=== PATIENT | male | born 1940 | race Caucasian/White ===

== ENCOUNTER 2023-01-07 13:53 | Outpatient (RCR) | payer MEDICARE, SELFPAY ==
[2023-01-07] VITALS (8 sets, daily range): BP systolic 93–122; BP diastolic 50–76; PULSE 50–56; RESP 18–20; TEMP 36–36.2; O2SAT 94–100
[2023-01-07 14:35] LABS: Basophils Percent Auto 0.2 % (0.2-2.0); Eosinophils Percent Auto 0.2 % (0.9-7.0); Immature Granulocytes Abs Auto 0.25 10^3/uL (0.00-0.03); Lymphocytes Absolute Auto 1.6 10^3/uL (1.2-3.8); Lymphocytes Percent Auto 31.6 % (20.5-60.0); Mean Corpuscular HGB Conc 32.7 g/dL (29.9-35.2); Mean Corpuscular Hemoglobin 37.7 pg (25.9-34.0); Mean Corpuscular Volume 115.3 fL (80.0-94.0); Monocytes Absolute Auto 0.8 10^3/uL (0.3-0.8); Monocytes Percent Auto 16.3 % (1.7-12.0); Neutrophils Absolute Auto 2.3 10^3/uL (1.4-6.5); Neutrophils Percent Auto 46.7 % (43.0-75.0); Platelet Count 92 10^3/uL (150-450); Red Blood Count 1.83 10^6/uL (4.70-6.10)
[2023-01-07 14:38] LABS: Hemoglobin 6.9 g/dL (14.0-18.0)
[2023-01-07] MEDS: 0.9 % SODIUM CHLORIDE 500 ML 100 ML IV (14:38)
[2023-01-07 14:39] LABS: Hematocrit 21.1 % (42.0-54.0)
[2023-01-07] MEDS: ACETAMINOPHEN 325 MG TABLET 650 MG PO (15:06)
[2023-01-07] MEDS: DIPHENHYDRAMINE HCL 25 MG CAPSULE PO (15:07)
--- NOTE | 2023-01-07 15:18 | PC.NURSE ---
PATIENT ARRIVED TO INFUSION SERVICES AT 1317. PATIENT IS MADE COMFORTABLE IN THE RECLINER AND PROVIDED A PILLOW, WARM BLANKET AND COLD WATER. HAT BLOCKING OPERATOR IS HERE TO DRAW BLOOD FOR A TYPE AND CROSS FOR 1 UNIT OF BLOOD. PERIPHERAL IV INITIATED IN THE LEFT HAND AFTER 1 ATTEMPT USING A 22G IV CATHETER. PATIENT TOLERATED PROCEDURE WELL. NORMAL SALINE INITIATED AT KVO. AWAITING LAB RESULT. LAB RESULT RECEIVED AND BLOOD IS READY TO ISSUE. BLOOD TRANSFUSION INITIATED WITHOUT DIFFICULTY, SEE TAR FOR DOCUMENTATION. 1520 FOOD ORDERED FROM [facility].
--- NOTE | 2023-01-07 16:29 | PC.NURSE ---
PATIENT IS EATING HIS HAMBURGER AND SALVADOREAN FRIES. PATIENT HAS NO COMPLAINTS. BLOOD TRANSFUSION IS RUNNING AT 180ML/HR. BLOOD TRANSFUSION COMPLETED AT 1720 WITHOUT COMPLICATIONS. IV CATHETER IS FLUSHED WITH NORMAL SALINE AND REMOVED. SITE IS COVERED WITH A COTTON BALL AND BAND AID. PATIENT IS UP TO THE BATHROOM FOR A VOID AND THEN DISCHARGED PER WHEELCHAIR TO PRIVATE VEHICLE AND THE CARE OF HIS . PATIENT HAD NO COMPLAINTS.
[2023-01-07] MEDS: FUROSEMIDE 20 MG/2 ML VIAL IV (17:12)
== END 2023-01-24 23:59 | disposition home or self-care (01) ==
LOC: INF 13:53
PROVIDERS: PCP Family Medicine; Visit Provider Family Medicine
DX: D46.9 Myelodysplastic syndrome, unspecified (principal)
CPT/HCPCS: 36415; 36430; 85025; 86850; 86900; 86901; 86920; G0463; P9016

== ENCOUNTER 2023-02-03 11:12 | Observation (INO) | payer MEDICARE, SELFPAY ==
[2023-02-03] VITALS (32 sets, daily range): BP systolic 94–126; BP diastolic 51–71; PULSE 50–72; RESP 16–30; TEMP 36.3–37.8; O2SAT 90–98; BMI 36.6; BMI 36.9
--- NOTE | 2023-02-03 11:31 | ECG_ITS ---
[facility] Test Date: 2023-02-03 Pat Name: SANDIP BROUSSARD Department: Room: - Gender: Male Medical Clerical Assistant: : 1940 Requested By: JACQUELIN HERNANDES Order Number: [id number] Reading MD: BROOKE MANDEL Measurements Intervals [place] Rate: 73 P: -[id number] NE: -[id number] QRS: 189 QRSD: 118 T: 49 QT: 418 QTc: 445 Interpretive Statements 1400 Undetermined rhythm (Possible supraventricular rhythm) 1574 with frequent ventricular premature complexes 3334 Anterolateral myocardial infarction, age undetermined 3433 Septal myocardial infarction, probably old 8100 Low QRS voltage 9150 abnormal ECG No previous ECG available for comparison Electronically Signed On 02-04-2023 7:06:49 EDT by BROOKE MANDEL
--- NOTE | 2023-02-03 11:31 | ED.GENADUL1 ---
HPI - General Adult General Chief complaint: Weakness Stated complaint: LOW ON BLOOD Time Seen by Provider: 02/03/23 11:22 Source: patient Mode of arrival: Wheelchair History of Present Illness HPI narrative: 82-year-old male presents for possible anemia. He has a history of myelodysplastic syndrome and periodically needs blood transfusion. The last time was on January 07. He's been feeling a little bit weak. His states that it's easier to bring him to the emergency department to get the blood than to go to the protocol his doctor wants him to do. No fever cough chest pain or shortness of breath. Related Data Home Medications Medication Instructions Recorded Confirmed aspirin 81 mg tablet,delayed 81 mg PO QPM 02/03/23 02/03/23 release bumetanide 1 mg tablet 1 mg PO BID 02/03/23 02/03/23 dapagliflozin 10 mg tablet 10 mg PO DAILY 02/03/23 02/03/23 (Farxiga) dexamethasone 2 mg tablet 2 mg PO DAILY 02/03/23 02/03/23 glipizide 5 mg tablet 5 mg PO QPM 02/03/23 02/03/23 metoprolol tartrate 25 mg tablet 12.5 mg PO DAILY 02/03/23 02/03/23 omeprazole 40 mg capsule,delayed 40 mg PO DAILY 02/03/23 02/03/23 release potassium chloride 10 mEq 10 meq PO DAILY 02/03/23 02/03/23 tablet,extended release (K-Tab) sennosides 8.6 mg-docusate sodium 1 tab-cap PO QPM 02/03/23 02/03/23 50 mg tablet (Docuzen) spironolactone 25 mg tablet 25 mg PO DAILY 02/03/23 02/03/23 (Aldactone) terazosin 5 mg capsule 5 mg PO QPM 02/03/23 02/03/23 Allergies Allergy/AdvReac Type Severity Reaction Status Date / Time bee venom protein (honey bee) Allergy Severe Verified 02/03/23 11:28 coreg Allergy Severe Uncoded 02/03/23 11:34 Review of Systems ROS Narrative A ten point review of systems is negative except as noted above. [facility] Medical History (Updated 02/03/23 @ 13:54 by Pancho Lama MD) Exam Narrative Exam Narrative: Nurses note and vital signs reviewed and patient is not hypoxic. General: The patient appears well and in no apparent distress. Patient is resting comfortably on cart. Skin: Warm, dry, pallor noted. There is no rash noted. Head: Normocephalic, atraumatic Eye: Normal conjunctiva, no drainage Ears, Nose, Mouth, and Throat: oral mucosa is moist. Nares patent. Cardiovascular: Regular Rate and Rhythm Respiratory: Patient is in no distress, no accessory muscle use, lungs are clear to auscultation, no wheezing, rales or rhonchi Back: non-tender GI: obese and nontender Musculoskeletal: The patient has no evidence of calf tenderness, no pitting edema, symmetrical pulses noted bilaterally Neurological: awake and alert Psychiatric: Cooperative Constitutional Vital Signs, click to edit/add: Last Vital Signs Temp 97.6 F 02/03/23 11:20 Pulse 66 02/03/23 13:45 Resp 22 02/03/23 13:45 BP 112/53 L 02/03/23 13:45 Pulse Ox 92 L 02/03/23 13:45 O2 Del Method Nasal Cannula 02/03/23 11:56 O2 Flow Rate 4 02/03/23 11:56 Course Vital Signs Vital signs: Vital Signs Temperature 97.6 F 02/03/23 11:20 Pulse Rate 58 L 02/03/23 11:20 Respiratory Rate 24 02/03/23 11:20 Blood Pressure 103/65 02/03/23 11:20 Pulse Oximetry 92 L 02/03/23 11:20 Oxygen Delivery Method Nasal Cannula 02/03/23 11:20 Oxygen Delivery Flow Rate 3 02/03/23 11:20 Temperature 97.6 F 02/03/23 11:20 Pulse Rate 66 02/03/23 13:45 Respiratory Rate 22 02/03/23 13:45 Blood Pressure 112/53 L 02/03/23 13:45 Pulse Oximetry 92 L 02/03/23 13:45 Oxygen Delivery Method Nasal Cannula 02/03/23 11:56 Oxygen Delivery Flow Rate 4 02/03/23 11:56 Medical Decision Making MDM Narrative Medical decision making narrative: he presents with anemia and hemoglobin of 4.6. He is being admitted for blood transfusion. He's anemic secondary to myelodysplastic syndrome. Differential Diagnosis Differential Diagnosis: anemia, ARMANDO Lab Data Lab results reviewed: Yes I reviewed the patient's lab results Labs: Lab Results 02/03/23 Range/Units 11:35 WBC 4.6 (4.0-11.0) 10^3/uL RBC 1.18 L (4.70-6.10) 10^6/uL Hgb 4.6 L* (14.0-18.0) g/dL Hct 14.8 L* (42.0-54.0) % MCV 125.4 H (80.0-94.0) fL MCH 39.0 H (25.9-34.0) pg MCHC 31.1 (29.9-35.2) g/dL Plt Count 82 L (150-450) 10^3/uL Seg Neuts % (Manual) 51.0 Lymphocytes % (Manual) 17.0 L (20.5-60.0) % Monocytes % (Manual) 17.0 H (1.7-12.0) % Eosinophils % (Manual) 0.0 L (0.9-7.0) % Basophils % (Manual) 0.0 L (0.2-2.0) % Metamyelocytes % 5.0 Neutrophils # (Manual) 2.34 (1.4-6.5) 10^3/uL Band Neutrophils # 10.0 H (0.0-0.3) 10^3/uL Lymphocytes # (Manual) 0.78 L (1.20-3.80) 10^3/uL Monocytes # (Manual) 0.78 (0.30-0.80) 10^3/uL Eosinophils # (Manual) 0.00 (0.00-0.70) 10^3/uL Basophils # (Manual) 0.00 (0.00-0.10) 10^3/uL Metamyelocytes # 0.23 Hypochromasia 2+ Anisocytosis 2+ Macrocytosis 2+ Sodium 142 (136-145) mmol/L Potassium 4.6 (3.5-5.1) mmol/L Chloride 103 (98-107) mmol/L Carbon Dioxide 28.4 (21.0-32.0) mmol/L Anion Gap 15.2 BUN 45.0 H (7.0-18.0) mg/dL Creatinine 1.90 H (0.70-1.30) mg/dL Est GFR ( Amer) 41 L (>=60) Est GFR (Non-Af Amer) 34 L (>=60) BUN/Creatinine Ratio 23.7 Glucose 168 H (74-106) mg/dL Calcium 8.6 (8.5-10.1) mg/dL ECG Data Attestation: I personally reviewed and interpreted this ECG as follows: (EKG on my interpretation shows a heart rate of 73 and uncertain rhythm) Discharge Plan Discharge Chief Complaint: Weakness Clinical Impression: Anemia Patient Disposition: Admitted as Observation Time of Disposition Decision: 13:54 Condition: Good Prescriptions / Home Meds: No Action bumetanide 1 mg tablet 1 mg PO BID dexamethasone 2 mg tablet 2 mg PO DAILY Farxiga 10 mg tablet 10 mg PO DAILY metoprolol tartrate 25 mg tablet 12.5 mg PO DAILY omeprazole 40 mg capsule,delayed release(DR/EC) 40 mg PO DAILY potassium chloride [K-Tab] 10 mEq tablet extended release 10 meq PO DAILY spironolactone [Aldactone] 25 mg tablet 25 mg PO DAILY glipizide 5 mg tablet 5 mg PO QPM terazosin 5 mg capsule 5 mg PO QPM aspirin 81 mg tablet,delayed release (DR/EC) 81 mg PO QPM sennosides-docusate sodium [Docuzen] 8.6-50 mg tablet 1 tab-cap PO QPM Referrals: JACQUELIN HERNANDES [Primary Care Provider] - 1 week
[2023-02-03 12:08] LABS: Anion Gap 15.2; BUN Creatinine Ratio 23.7; Calcium 8.6 mg/dL (8.5-10.1); Carbon Dioxide 28.4 mmol/L (21.0-32.0); Chloride 103 mmol/L (98-107); Estimated GFR (African America 41 (>=60); Estimated GFR (Non-African Ame 34 (>=60); Glucose 168 mg/dL (74-106); Potassium 4.6 mmol/L (3.5-5.1); Sodium 142 mmol/L (136-145)
[2023-02-03 12:25] LABS: Mean Corpuscular HGB Conc 31.1 g/dL (29.9-35.2); Mean Corpuscular Volume 125.4 fL (80.0-94.0); Platelet Count 82 10^3/uL (150-450); Red Blood Count 1.18 10^6/uL (4.70-6.10); White Blood Count 4.6 10^3/uL (4.0-11.0)
[2023-02-03 12:41] LABS: Hematocrit 14.8 % (42.0-54.0); Hemoglobin 4.6 g/dL (14.0-18.0)
[2023-02-03 13:07] LABS: Lymphocytes Absolute Manual 0.78 10^3/uL (1.20-3.80); Metamyelocytes Absolute Manual 0.23; Monocytes Absolute Manual 0.78 10^3/uL (0.30-0.80); Segmented Neut Absolute Manual 2.34 10^3/uL (1.4-6.5)
[2023-02-03 13:08] LABS: Anisocytosis 2+; Hypochromasia 2+; Macrocytosis 2+
[2023-02-03] MEDS: 0.9 % SODIUM CHLORIDE 250 ML 25 ML IV (15:39)
[2023-02-03] MEDS: PANTOPRAZOLE SODIUM 40 MG VIAL IV (15:40)
--- NOTE | 2023-02-03 15:47 | SWNOTE1 ---
FLOYD met with pt and pt's in room. Pt's was very upset about the hospice care her was getting at home. He has [facility]. Pt's voiced several situations that made her upset. She was upset about hospice taking him off meds that his sand carrier prescribes, she was also upset about a paper she recevied in mail about meds. Pt's had several concerns. SW suggested that pt and speak to other hospices tomorrow so she can ask them questions. Pt's is agreeable to talk with [facility] and [facility]. SW reached out to doctor.
[2023-02-03 16:23] LABS: Glucometer 241 mg/dL (74-106)
[2023-02-03] MEDS: FUROSEMIDE 20 MG/2 ML VIAL IVP (20:18)
[2023-02-03] MEDS: GLIPIZIDE 5 MG TABLET PO (20:36)
[2023-02-03] MEDS: TERAZOSIN HCL 5 MG CAPSULE PO (20:37)
[2023-02-03] MEDS: BUMETANIDE 1 MG TABLET PO (20:37)
[2023-02-03 21:54] LABS: Glucometer 275 mg/dL (74-106)
[2023-02-03] MEDS: INSULIN ASPART 300 UNIT/3 ML PEN SUBQ (22:06)
[2023-02-04] VITALS (21 sets, daily range): BP systolic 105–134; BP diastolic 57–76; PULSE 50–83; RESP 16–20; TEMP 36.4–37.4; O2SAT 90–95
[2023-02-04 05:46] LABS: INR 1.09; Partial Thromboplastin Time 20.3 sec (22.3-36.2); Prothrombin Time 11.5 sec (9.0-11.6)
[2023-02-04 05:55] LABS: Alanine Aminotransferase 126 U/L (16-63); Albumin Globulin Ratio 0.9; Albumin Level 3.4 g/dL (3.4-5.0); Alkaline Phosphatase 76 U/L (46-116); Anion Gap 14.4; Aspartate Amino Transferase 48 U/L (15-37); BUN Creatinine Ratio 25.1; Bilirubin Total 1.2 mg/dL (0.2-1.0); Calcium 9.1 mg/dL (8.5-10.1); Carbon Dioxide 29.3 mmol/L (21.0-32.0); Chloride 103 mmol/L (98-107); Estimated GFR (African America 41 (>=60); Estimated GFR (Non-African Ame 34 (>=60); Globulin 3.6 g/dL; Glucose 137 mg/dL (74-106); Potassium 4.7 mmol/L (3.5-5.1); Sodium 142 mmol/L (136-145)
[2023-02-04 07:13] LABS: Hematocrit 24.1 % (42.0-54.0); Hemoglobin 7.7 g/dL (14.0-18.0); Mean Corpuscular Hemoglobin 33.6 pg (25.9-34.0); Mean Corpuscular Volume 105.2 fL (80.0-94.0); Platelet Count 85 10^3/uL (150-450); Red Blood Count 2.29 10^6/uL (4.70-6.10)
[2023-02-04 08:19] LABS: Band Neutrophils Absolute 0.2 10^3/uL (0.0-0.3); Metamyelocytes Absolute Manual 0.05; Segmented Neut Absolute Manual 3.25 10^3/uL (1.4-6.5)
[2023-02-04 08:21] LABS: Giant Platelets 1+
[2023-02-04 08:25] LABS: Anisocytosis 1+; Hypochromasia 1+; Macrocytosis 1+
[2023-02-04] MEDS: CANAGLIFLOZIN 100 MG TABLET 300 MG PO (10:28)
[2023-02-04] MEDS: OMEPRAZOLE 40 MG CAPSULE.DR PO (10:29)
[2023-02-04] MEDS: METOPROLOL TARTRATE 25 MG TABLET 12.5 MG PO (10:29)
[2023-02-04] MEDS: BUMETANIDE 1 MG TABLET PO (10:29)
[2023-02-04] MEDS: DEXAMETHASONE 4 MG TABLET 2 MG PO (10:30)
[2023-02-04] MEDS: SPIRONOLACTONE 25 MG TABLET PO (10:30)
--- NOTE | 2023-02-04 10:31 | CM.NOTE ---
Rounds made with Dr. Liu, pt will receive one more unit PRBC's today and then D/C to home. Pt does verbalize he is not happy with [facility]. SW did discuss option with pt and reached out to [facility].
[2023-02-04] MEDS: POTASSIUM CHLORIDE 10 MEQ ER TABLET PO (10:32)
--- NOTE | 2023-02-04 10:38 | SWNOTE1 ---
[facility] will be here around two. SW spoke to [facility] and they set up time with pt's for 1:30-2. SW requested [facility] change the time, waiting for call back from nurse at [facility]. SW also reached out to [facility] via email requeting time change.
--- NOTE | 2023-02-04 10:57 | PM.HP ---
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 Hemoglobin less than 5 in the emergency room. Admitted for transfusion. He received 4 units overnight. Hemoglobin still less than 8. Review of Systems ROS Status of ROS 10 or more systems reviewed and unremarkable except as noted in history and below [facility] Medical History (Updated 02/03/23 @ 15:57 by Khadijah Mohan) Surgical History (Updated 02/03/23 @ 15:57 by Khadijah Mohan) Family History (Updated 02/03/23 @ 15:58 by Khadijah Mohan) Father Family history of stroke Mother Family history of stroke Family history of hypertension Family history of CHF (congestive heart failure) Brother Family history of diabetes mellitus Sister Family history of cancer Social History (Updated 02/03/23 @ 16:00 by Khadijah Mohan) Within the past year, how often did you have a drink containing alcohol: never Score interpretation: A score less than 4 is consistent with normal alcohol consumption. Smoking status: Former smoker Non-prescribed substance use: denies use Previous occupational history: Retired - [employer] Highest level of school completed/degree received: high school graduate Are you now , , , , never or living with a partner: In a typical week, how many times do you talk on the telephone with family, friends, or neighbors: 3 or more times per week How often do you get together with friends or relatives: 3 or more times per week How often do you attend mandaeism or yarsanism services: 1-3 times per year Little interest or pleasure in doing things: not at all Feeling down, depressed, or hopeless: not at all Feel stressed/tense/nervous/anxious/difficulty sleeping: not at all Life stressors: unknown source of stress Do you think of yourself as: straight/heterosexual Gender Identity: male Meds Home Medications and Allergies Home Medications Medication Instructions Recorded Confirmed Type aspirin 81 mg tablet,delayed 81 mg PO QPM 02/03/23 02/03/23 History release bumetanide 1 mg tablet 1 mg PO BID 02/03/23 02/03/23 History dapagliflozin 10 mg tablet 10 mg PO DAILY 02/03/23 02/03/23 History () dexamethasone 2 mg tablet 2 mg PO DAILY 02/03/23 02/03/23 History glipizide 5 mg tablet 5 mg PO QPM 02/03/23 02/03/23 History metoprolol tartrate 25 mg tablet 12.5 mg PO DAILY 02/03/23 02/03/23 History omeprazole 40 mg capsule,delayed 40 mg PO DAILY 02/03/23 02/03/23 History release potassium chloride 10 mEq 10 meq PO DAILY 02/03/23 02/03/23 History tablet,extended release (K-Tab) sennosides 8.6 mg-docusate sodium 1 tab-cap PO QPM 02/03/23 02/03/23 History 50 mg tablet (Docuzen) spironolactone 25 mg tablet 25 mg PO DAILY 02/03/23 02/03/23 History (Aldactone) terazosin 5 mg capsule 5 mg PO QPM 02/03/23 02/03/23 History Allergies Allergy/AdvReac Type Severity Reaction Status Date / Time bee venom protein (honey bee) Allergy Severe Verified 02/03/23 11:28 coreg Allergy Severe Uncoded 02/03/23 11:34 Exam Constitutional Vital Signs, click to edit/add: Last Vital Signs Temp 98.2 F 02/04/23 05:32 Pulse 59 L 02/04/23 06:17 Resp 18 02/04/23 08:00 BP 117/70 02/04/23 05:32 Pulse Ox 90 L 02/04/23 05:32 O2 Del Method Nasal Cannula 02/04/23 05:32 O2 Flow Rate 3 02/04/23 05:32 HENMT Common normals: normocephalic Chest Common normals: inspection of chest normal Respiratory Common normals: normal respiratory effort and clear to auscultation bilaterally Cardio Common normals: regular rate and regular rhythm GI Common normals: Normal to inspection, nondistended, normoactive bowel sounds present Neuro Common normals: oriented x3 and CN's II-XII intact bilaterally Results Labs Labs: Short CBC 02/03/23 02/04/23 Range/Units 11:35 04:55 WBC 4.6 5.0 (4.0-11.0) 10^3/uL Hgb 4.6 L* 7.7 L (14.0-18.0) g/dL Hct 14.8 L* 24.1 L (42.0-54.0) % Plt Count 82 L 85 L (150-450) 10^3/uL BMP 02/03/23 02/04/23 11:35 04:55 Sodium 142 142 Potassium 4.6 4.7 Chloride 103 103 Carbon Dioxide 28.4 29.3 BUN 45.0 H 48.0 H Creatinine 1.90 H 1.91 H Glucose 168 H 137 H Calcium 8.6 9.1 Liver Function 02/04/23 Range/Units 04:55 Total Bilirubin 1.2 H (0.2-1.0) mg/dL AST 48 H (15-37) U/L ALT 126 H (16-63) U/L Alkaline Phosphatase 76 (46-116) U/L Albumin 3.4 (3.4-5.0) g/dL Assessment and Plan Assessment and Plan (1) Transfusion of blood during current hospitalisation: (2) Diabetes: (3) Anemia: Plan 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 We will give 1 additional unit. Then discharged home in improving condition. Medications see list. Follow-up with PCP and hematology oncology within the next week.
[2023-02-04 11:21] LABS: Glucometer 166 mg/dL (74-106)
--- NOTE | 2023-02-04 11:44 | SWNOTE1 ---
FLOYD recevied call from [facility] and they will be here shortly.
--- NOTE | 2023-02-04 13:04 | SWNOTE1 ---
SW spoke to nurse from [facility] via phone and pt does qualify for hospice or palliative care, but wants to talk with [facility] at 2 and then decide.
[2023-02-04] MEDS: 0.9 % SODIUM CHLORIDE 250 ML IV.SOLN IV (14:33)
--- NOTE | 2023-02-04 15:45 | SWNOTE1 ---
FLOYD spoke with [facility] and they are still able to do blood transfusions on hospice. Pt is going to sign on with [facility], Bobbi from [facility] is going to be calling as she had to leave for appointment. Pt will be discharged home today. Bobbi (from [facility]) will take care of calling [facility]
--- NOTE | 2023-02-04 16:21 | SWNOTE1 ---
SW reviewed STARK form with pt, pt's was not in room. Pt did voice understanding, no questions. Pt signed form, original given to pt and copy placed in chart. SW did let pt know if his has any questions to call and ask for SW. [facility] will be contacting as well.
[2023-02-04 16:52] LABS: Glucometer 287 mg/dL (74-106)
[2023-02-04] MEDS: INSULIN ASPART 300 UNIT/3 ML PEN SUBQ (17:30)
[2023-02-04 18:05] LABS: Hematocrit 26.7 % (42.0-54.0); Mean Corpuscular HGB Conc 33.7 g/dL (29.9-35.2); Mean Corpuscular Hemoglobin 34.5 pg (25.9-34.0); Mean Corpuscular Volume 102.3 fL (80.0-94.0); Platelet Count 93 10^3/uL (150-450); Red Blood Count 2.61 10^6/uL (4.70-6.10); Red Cell Distribution Width 28.9 % (11.0-15.0); White Blood Count 5.3 10^3/uL (4.0-11.0)
[2023-02-04 18:40] LABS: Band Neutrophils Absolute 0.4 10^3/uL (0.0-0.3); Lymphocytes Absolute Manual 0.95 10^3/uL (1.20-3.80); Metamyelocytes Absolute Manual 0.15; Monocytes Absolute Manual 0.31 10^3/uL (0.30-0.80); Segmented Neut Absolute Manual 3.44 10^3/uL (1.4-6.5)
[2023-02-04 18:41] LABS: Anisocytosis 1+; Giant Platelets 1+; Hypochromasia 1+; Macrocytosis 1+
== END 2023-02-04 18:26 | disposition hospice, home (50) ==
LOC: ER 14:26 → MS 14:31
PROVIDERS: Admitting Provider Family Medicine; Emergency Provider Emergency Medicine; PCP Family Medicine; Visit Provider Family Medicine
DX: D46.9 Myelodysplastic syndrome, unspecified (principal); D63.8 Anemia in other chronic diseases classified elsewhere; E11.9 Type 2 diabetes mellitus without complications; Z79.82 Long term (current) use of aspirin; Z79.899 Other long term (current) drug therapy; Z87.891 Personal history of nicotine dependence
CPT/HCPCS: 36415; 36430; 80048; 80053; 82948; 85007; 85025; 85027; 85610; 85730; 86850; 86900; 86901; 86920; 93005; 94667; 94668; 94761; 96374; 96375; 99285; G0328; G0378; P9016

== ENCOUNTER 2023-03-12 10:00 | Outpatient (RCR) | payer MEDICARE, SELFPAY ==
[2023-03-12 10:19] VITALS: BP 106/54; PULSE 58; RESP 16; TEMP 36.5; O2SAT 99
--- NOTE | 2023-03-12 10:26 | PC.NURSE ---
10:10 Arrived per wheel chair, stood on own and transferred to reclinning chair, with patient. oxygen with patient. Alert oriented, lungs clear to auscultation, vss obtained. Lungs clear to auscultation, heart tones strong and regular. Lab in, labs drawn with IV start, #20 to left forarm, tolerated procedure without difficult.
[2023-03-12] MEDS: 0.9 % SODIUM CHLORIDE 250 ML 30 ML IV (10:29)
[2023-03-12 11:33] VITALS: BP 112/50; PULSE 54; RESP 20; TEMP 36.4; O2SAT 100
[2023-03-12 11:46] VITALS: BP 103/58; RESP 16; TEMP 36.6; O2SAT 98
[2023-03-12 11:50] VITALS: BP 102/66; PULSE 66; RESP 14; TEMP 36.6; O2SAT 98
--- NOTE | 2023-03-12 11:52 | PC.NURSE ---
tolerating PRBC without diffiiculty. patient request premed wth tylenol and benadryl, no orders for premedication. called [facility] oncology, will send orders.
--- NOTE | 2023-03-12 12:26 | PC.NURSE ---
Tolerating prbc's withoutout difficulty.
[2023-03-12] MEDS: FUROSEMIDE 20 MG/2 ML VIAL IVP (15:22)
== END 2023-03-12 15:00 | disposition home or self-care (01) ==
LOC: INF 10:00
PROVIDERS: PCP Family Medicine
DX: D46.9 Myelodysplastic syndrome, unspecified (principal); D61.818 Other pancytopenia
CPT/HCPCS: 36415; 36430; 86850; 86900; 86901; 86920; P9016

== ENCOUNTER 2023-03-19 10:43 | Outpatient (OUT) | payer MEDICARE, SELFPAY ==
[2023-03-19 11:10] LABS: Immature Granulocytes Abs Auto 0.12 10^3/uL (0.00-0.03); Immature Granulocytes Pct Auto 4.1 % (0.0-0.5); Lymphocytes Absolute Auto 0.7 10^3/uL (1.2-3.8); Mean Corpuscular HGB Conc 31.2 g/dL (29.9-35.2); Mean Corpuscular Volume 109.1 fL (80.0-94.0); Mean Platelet Volume 13.8 fL (9.5-13.5); Monocytes Absolute Auto 0.5 10^3/uL (0.3-0.8); Monocytes Percent Auto 16.6 % (1.7-12.0); Neutrophils Absolute Auto 1.7 10^3/uL (1.4-6.5); Neutrophils Percent Auto 56.3 % (43.0-75.0); Platelet Count 83 10^3/uL (150-450); Red Blood Count 1.97 10^6/uL (4.70-6.10)
[2023-03-19 11:11] LABS: Hemoglobin 6.7 g/dL (14.0-18.0)
[2023-03-19 11:12] LABS: Hematocrit 21.5 % (42.0-54.0)
[2023-03-19 14:56] LABS: Alanine Aminotransferase 135 U/L (16-63); Albumin Level 3.3 g/dL (3.4-5.0); Alkaline Phosphatase 79 U/L (46-116); Anion Gap 14.8; Aspartate Amino Transferase 36 U/L (15-37); BUN Creatinine Ratio 21.3; Bilirubin Total 0.5 mg/dL (0.2-1.0); Calcium 8.8 mg/dL (8.5-10.1); Carbon Dioxide 27.7 mmol/L (21.0-32.0); Chloride 102 mmol/L (98-107); Estimated GFR (African America 40 (>=60); Estimated GFR (Non-African Ame 33 (>=60); Globulin 3.9 g/dL; Glucose 203 mg/dL (74-106); Lactate Dehydrogenase 249 U/L (85-227); Potassium 4.5 mmol/L (3.5-5.1); Sodium 140 mmol/L (136-145); Total Protein 7.2 g/dL (6.4-8.2)
[2023-03-19 14:57] LABS: Albumin Globulin Ratio 0.8
== END 2023-03-19 10:44 | disposition home or self-care (01) ==
LOC: LAB 10:47
PROVIDERS: PCP Family Medicine
DX: D61.818 Other pancytopenia (principal); D63.8 Anemia in other chronic diseases classified elsewhere; D46.Z Other myelodysplastic syndromes
CPT/HCPCS: 36415; 80053; 83615; 85025; 86850; 86900; 86901; 86920

== ENCOUNTER 2023-03-25 14:01 | Outpatient (OUT) | payer MEDICARE, SELFPAY ==
[2023-03-25 15:55] LABS: Hemoglobin 7.5 g/dL (14.0-18.0); Mean Corpuscular HGB Conc 32.3 g/dL (29.9-35.2); Mean Corpuscular Hemoglobin 34.1 pg (25.9-34.0); Mean Corpuscular Volume 105.5 fL (80.0-94.0); Mean Platelet Volume 13.5 fL (9.5-13.5); Platelet Count 101 10^3/uL (150-450); Red Cell Distribution Width 26.4 % (11.0-15.0); White Blood Count 3.8 10^3/uL (4.0-11.0)
[2023-03-25 15:58] LABS: Hematocrit 23.2 % (42.0-54.0)
[2023-03-25 16:14] LABS: Atypical Lymphocytes Abs Man 0.1; Lymphocytes Absolute Manual 0.45 10^3/uL (1.20-3.80); Metamyelocytes Absolute Manual 0.03; Monocytes Absolute Manual 0.45 10^3/uL (0.30-0.80); Segmented Neut Absolute Manual 2.62 10^3/uL (1.4-6.5)
[2023-03-25 16:15] LABS: Band Neutrophils Absolute 0.1 10^3/uL (0.0-0.3)
[2023-03-25 16:17] LABS: Anisocytosis 2+; Hypochromasia 2+
[2023-03-25 16:18] LABS: Macrocytosis 2+
== END 2023-03-25 14:02 | disposition home or self-care (01) ==
LOC: HEMC 14:01
PROVIDERS: PCP Family Medicine; Visit Provider Internal Medicine Hematology & Oncology
DX: D46.9 Myelodysplastic syndrome, unspecified (principal)
CPT/HCPCS: 36415; 85027; 86850; 86920; G0463

== ENCOUNTER 2023-03-26 13:00 | Outpatient (RCR) | payer MEDICARE, SELFPAY ==
[2023-03-21] MEDS: 0.9 % SODIUM CHLORIDE 250 ML 40 ML IV (08:41)
[2023-03-21] MEDS: DIPHENHYDRAMINE HCL 25 MG CAPSULE PO (08:43)
[2023-03-21] MEDS: ACETAMINOPHEN 325 MG TABLET 650 MG PO (08:43)
[2023-03-21 08:59] VITALS: PULSE 50; RESP 18; TEMP 36.3
--- NOTE | 2023-03-21 09:08 | PC.NURSE ---
0830 Arrived per w/c assisted to recliner seat 3. alert oriented. oxygen at 3lpm, connected to wall o2. Respirations with ease, lungs clear posteriorly to ausculation. Heart tones bradycardic at 50. No peripheral edema noted. Iv #22 initiated left wrist area on 1st attempt, tolerated well. nss initiated at kvo. Premedicated as ordered with benadryl and tylenol.
--- NOTE | 2023-03-21 09:11 | PC.NURSE ---
903 unit of prbc's initated per protocol at 80 ml hr. patient educated on s/s of rxn and to call nurse for any shortness of breath, chest pain, itching, back pain chills etc. verbalizes understanding.
[2023-03-21 09:20] VITALS: PULSE 56; RESP 18; TEMP 36.4; O2SAT 99
--- NOTE | 2023-03-21 09:28 | PC.NURSE ---
Tolerating prbc's without difficulty, rate increased to 120 ml/hr resting recliner when undisturbed.
[2023-03-21 10:20] VITALS: BP 112/56; PULSE 61; RESP 18; TEMP 35.9; O2SAT 98
--- NOTE | 2023-03-21 10:26 | PC.NURSE ---
Tolerating PRBC's without difficulty. eating breakfast at this time.
[2023-03-21 11:08] VITALS: BP 112/56; PULSE 61; RESP 18; TEMP 36.2; O2SAT 98
[2023-03-21 12:05] VITALS: BP 118/68; PULSE 53; RESP 18; TEMP 36.5
--- NOTE | 2023-03-21 12:14 | PC.NURSE ---
PRBC's infused. NS flush initiated, VS obtained.
[2023-03-21 12:18] VITALS: BP 100/54; PULSE 56; RESP 20; TEMP 37; O2SAT 99
[2023-03-21] MEDS: FUROSEMIDE 20 MG/2 ML VIAL IV (12:30)
--- NOTE | 2023-03-21 12:55 | PC.NURSE ---
1235 ns flush completed. iv fluids beth enriquez,
--- NOTE | 2023-03-26 13:43 | PC.NURSE ---
1300: Pt. to [facility] via w/c accompanied by . Portable O2 intact. Assisted to recliner. VSS. O2 to wall unit at 3L nasal cannula. #22 gauge IV initiated to right hand on first attempt. Flushes easily with good blood return, pt. tolerated without c/o. Pt. with skin tear to left hand. States tore skin on suspender clip on way over to hospital. Tegaderm and coban dressing applied.
[2023-03-26] MEDS: 0.9 % SODIUM CHLORIDE 250 ML 30 ML IV (14:18)
--- NOTE | 2023-03-26 14:18 | PC.NURSE ---
1418: 1 unit PRBC initiated at this time. Pt. finishing lunch. Denies c/o or needs. O2 maintained. Sister at chair side to visit.
--- NOTE | 2023-03-26 14:33 | PC.NURSE ---
1433: Pt. tolerating blood without c/o. Denies c/o dyspnea, n/v or chest pain. VSS.
--- NOTE | 2023-03-26 15:15 | PC.NURSE ---
1515: Pt. without change. VSS. IV site remains without s&s of infiltration. Denies c/o.
--- NOTE | 2023-03-26 16:02 | PC.NURSE ---
1418: 1 Unit PRBC initiated at this time. Pt. without c/o or needs. Finishing lunch. Sister at chairside.
--- NOTE | 2023-03-26 16:09 | PC.NURSE ---
No new changes in overall status. VSS. Denies needs or c/o. and sister visiting with pt.
[2023-03-26 16:55] VITALS: BP 98/53; PULSE 56; RESP 18; TEMP 36.8; O2SAT 98
--- NOTE | 2023-03-26 16:55 | PC.NURSE ---
1645: Transfusion completed at this time. VSS. Pt.without s&s of transfusion reaction. IV d/c'd, pressure to site. Pt. assisted to bathroom to void. Voided QS. 165: Pt. taken to car via w/c to home with
== END 2023-03-27 23:59 | disposition home or self-care (01) ==
LOC: INF 13:00
PROVIDERS: PCP Family Medicine
DX: D64.9 Anemia, unspecified (principal)
CPT/HCPCS: 36415; 36430; 85027; 86850; 86920; 96374; G0463; P9016

== ENCOUNTER 2023-04-23 07:30 | Outpatient (RCR) | payer MEDICARE, SELFPAY ==
[2023-04-01 14:55] LABS: Basophils Percent Auto 0.3 % (0.2-2.0); Hemoglobin 7.4 g/dL (14.0-18.0); Immature Granulocytes Abs Auto 0.19 10^3/uL (0.00-0.03); Immature Granulocytes Pct Auto 5.1 % (0.0-0.5); Lymphocytes Absolute Auto 0.7 10^3/uL (1.2-3.8); Lymphocytes Percent Auto 17.6 % (20.5-60.0); Mean Corpuscular HGB Conc 31.6 g/dL (29.9-35.2); Mean Corpuscular Volume 104.5 fL (80.0-94.0); Mean Platelet Volume 13.9 fL (9.5-13.5); Monocytes Absolute Auto 0.7 10^3/uL (0.3-0.8); Monocytes Percent Auto 17.6 % (1.7-12.0); Neutrophils Absolute Auto 2.2 10^3/uL (1.4-6.5); Neutrophils Percent Auto 59.4 % (43.0-75.0); Platelet Count 73 10^3/uL (150-450); Red Blood Count 2.24 10^6/uL (4.70-6.10); Red Cell Distribution Width 26.2 % (11.0-15.0); White Blood Count 3.7 10^3/uL (4.0-11.0)
[2023-04-01 14:59] LABS: Hematocrit 23.4 % (42.0-54.0)
[2023-04-01 15:11] LABS: Alanine Aminotransferase 127 U/L (16-63); Albumin Globulin Ratio 0.9; Albumin Level 3.4 g/dL (3.4-5.0); Alkaline Phosphatase 75 U/L (46-116); Aspartate Amino Transferase 31 U/L (15-37); BUN Creatinine Ratio 24.6; Bilirubin Total 0.4 mg/dL (0.2-1.0); Calcium 8.8 mg/dL (8.5-10.1); Carbon Dioxide 24.6 mmol/L (21.0-32.0); Chloride 102 mmol/L (98-107); Estimated GFR (African America 39 (>=60); Estimated GFR (Non-African Ame 32 (>=60); Globulin 3.8 g/dL; Glucose 231 mg/dL (74-106); Potassium 3.6 mmol/L (3.5-5.1); Sodium 135 mmol/L (136-145); Total Protein 7.2 g/dL (6.4-8.2)
[2023-04-02 11:08] VITALS: BP 119/68; PULSE 51; RESP 24; TEMP 36.9; O2SAT 98
[2023-04-02] MEDS: ACETAMINOPHEN 325 MG TABLET 650 MG PO (11:31)
[2023-04-02] MEDS: DIPHENHYDRAMINE HCL 25 MG CAPSULE PO (11:32)
[2023-04-02 11:34] VITALS: BP 119/68; PULSE 51; RESP 24; TEMP 36.9; O2SAT 98
--- NOTE | 2023-04-02 11:36 | PC.NURSE ---
1108: Pt. to [facility] via w/c accompanied by . Assisted to recliner chair. Pt. with continuous O2 at 3L nasal cannula. VSS. #22 gauge IV initiated to right wrist on second attempt. Flushes easily without s&s of infiltration. Pt. tolerated with minimal c/o. Warm blanket and pillow provided. 1136: 1 unit PRBC initiated at this time. Pt.'s sister in to visit. Lunch tray ordered.
[2023-04-02 11:51] VITALS: BP 119/68; PULSE 51; RESP 20; TEMP 36.5; O2SAT 98
[2023-04-02 12:40] VITALS: BP 98/49; PULSE 55; RESP 18; TEMP 36.6; O2SAT 98
--- NOTE | 2023-04-02 12:40 | PC.NURSE ---
1240: PRBC continue to infuse without s&s of adverse reaction. VSS. Ate 100% of lunch. Pt. talkative, visiting with sister. Denies c/o or needs.
[2023-04-02 13:27] VITALS: BP 100/51; PULSE 55; RESP 18; TEMP 36.6; O2SAT 98
--- NOTE | 2023-04-02 13:27 | PC.NURSE ---
1327: PRBC infusion completed at this time. Line flushing with saline. Pt. tolerated without adverse reaction. VSS. Pt. denies c/o or needs.
--- NOTE | 2023-04-02 13:55 | PC.NURSE ---
Pt. without c/o. VSS. Up to bathroom to void. Voids QS. Pt. d/c'd via w/c to home with .
[2023-04-08 14:23] LABS: Hemoglobin 7.1 g/dL (14.0-18.0); Mean Corpuscular HGB Conc 31.3 g/dL (29.9-35.2); Mean Corpuscular Volume 105.6 fL (80.0-94.0); Mean Platelet Volume 13.8 fL (9.5-13.5); Platelet Count 115 10^3/uL (150-450); Red Blood Count 2.15 10^6/uL (4.70-6.10); Red Cell Distribution Width 25.7 % (11.0-15.0)
[2023-04-08 14:44] LABS: Hematocrit 22.7 % (42.0-54.0)
[2023-04-08 15:54] LABS: Band Neutrophils Absolute 0.1 10^3/uL (0.0-0.3); Lymphocytes Absolute Manual 1.08 10^3/uL (1.20-3.80); Metamyelocytes Absolute Manual 0.08; Monocytes Absolute Manual 0.36 10^3/uL (0.30-0.80)
--- NOTE | 2023-04-09 08:40 | PC.NURSE ---
0840: Pt. to [facility] via w/c accompanied by . Assisted to recliner. Pt with continuous O2 at 3L n/c. VSS. Relays c/o low back pain at 8 08/06. Positioned for comfort. #22 gauge IV initiated to right wrist on first attempt without difficulty. Flushes easily with good blood return. Pt. tolerated without c/o. Pt. given warm blanket and pillow.
[2023-04-09] MEDS: ACETAMINOPHEN 325 MG TABLET 650 MG PO (09:00)
[2023-04-09] MEDS: 0.9 % SODIUM CHLORIDE 250 ML 30 ML IV (09:01)
[2023-04-09] MEDS: DIPHENHYDRAMINE HCL 25 MG CAPSULE PO (09:01)
[2023-04-09 09:02] VITALS: BP 108/61; PULSE 68; RESP 20; TEMP 36.4; O2SAT 99
[2023-04-09 09:06] VITALS: BP 108/61; PULSE 68; RESP 20; TEMP 36.4; O2SAT 99
[2023-04-09 09:07] VITALS: BP 108/61; PULSE 68; RESP 20; TEMP 36.4
--- NOTE | 2023-04-09 09:09 | PC.NURSE ---
0909: 1 unit PRBC initiated at this time. Breakfast tray ordered.
--- NOTE | 2023-04-09 09:14 | PC.NURSE ---
0905 cath flow 2.2 ml via rt chest port, clamped patient educated on dwell time and procedure for declotting port. patient verbalizes understanding
--- NOTE | 2023-04-09 09:20 | PC.NURSE ---
0901: Pt. medicated with pre-transfusion meds as ordered.
[2023-04-09 09:24] VITALS: BP 111/59; PULSE 62; RESP 20; TEMP 36.3; O2SAT 99
[2023-04-09 09:25] VITALS: BP 115/52; PULSE 72; RESP 18; TEMP 36.4; O2SAT 99
--- NOTE | 2023-04-09 09:26 | PC.NURSE ---
Pt. tolerating transfusion without c/o. VSS. Eating breakfast. IV site clear. Denies needs.
--- NOTE | 2023-04-09 10:05 | PC.NURSE ---
1005: Pt. without c/o. Denies needs. Visiting with sister.
--- NOTE | 2023-04-09 10:45 | PC.NURSE ---
1045: No new changes observed. VSS. Denies needs or c/o.
[2023-04-09 11:25] VITALS: BP 128/72; PULSE 72; RESP 18; TEMP 36.4
--- NOTE | 2023-04-09 11:30 | PC.NURSE ---
1125: PRBC completed at this time. Pt. without s&s of transfusion reaction. VSS. IV d/c'd pressure to site. Pt. tolerated without c/o. 1130: Pt. d/c'd via w/c to home with .
[2023-04-15 14:29] LABS: Basophils Percent Auto 0.5 % (0.2-2.0); Immature Granulocytes Abs Auto 0.14 10^3/uL (0.00-0.03); Immature Granulocytes Pct Auto 6.6 % (0.0-0.5); Lymphocytes Absolute Auto 0.5 10^3/uL (1.2-3.8); Lymphocytes Percent Auto 22.5 % (20.5-60.0); Mean Corpuscular HGB Conc 30.4 g/dL (29.9-35.2); Mean Corpuscular Hemoglobin 32.4 pg (25.9-34.0); Mean Corpuscular Volume 106.7 fL (80.0-94.0); Mean Platelet Volume 13.8 fL (9.5-13.5); Monocytes Absolute Auto 0.4 10^3/uL (0.3-0.8); Monocytes Percent Auto 19.7 % (1.7-12.0); Neutrophils Absolute Auto 1.1 10^3/uL (1.4-6.5); Neutrophils Percent Auto 50.7 % (43.0-75.0); Platelet Count 88 10^3/uL (150-450); Red Cell Distribution Width 23.4 % (11.0-15.0); White Blood Count 2.1 10^3/uL (4.0-11.0)
[2023-04-15 14:43] LABS: Hemoglobin 6.8 g/dL (14.0-18.0)
[2023-04-15 14:44] LABS: Hematocrit 22.4 % (42.0-54.0)
[2023-04-15 14:46] LABS: Anion Gap 9.7; BUN Creatinine Ratio 15.6; Calcium 8.5 mg/dL (8.5-10.1); Carbon Dioxide 27.4 mmol/L (21.0-32.0); Chloride 105 mmol/L (98-107); Estimated GFR (African America 42 (>=60); Estimated GFR (Non-African Ame 35 (>=60); Glucose 200 mg/dL (74-106); Potassium 4.1 mmol/L (3.5-5.1); Sodium 138 mmol/L (136-145)
--- NOTE | 2023-04-16 11:28 | PC.NURSE ---
1115 Arrived per w/c to chair 3. with patient. Alert oriented. oxygen at 3 lpm nc. Respirations unlabored. lungs clear to auscultation. #22 iv initated on 1st attempt left inner arm patient tolerated well.
[2023-04-16] MEDS: 0.9 % SODIUM CHLORIDE 250 ML IV (11:32)
[2023-04-16] MEDS: DIPHENHYDRAMINE HCL 25 MG CAPSULE PO (11:32)
[2023-04-16] MEDS: ACETAMINOPHEN 325 MG TABLET 650 MG PO (11:33)
[2023-04-16 11:37] VITALS: BP 96/61; PULSE 51; RESP 18; TEMP 35.9; O2SAT 98
[2023-04-16 11:44] VITALS: BP 96/61; PULSE 51; RESP 20; TEMP 35.9; O2SAT 98
[2023-04-16 11:51] VITALS: BP 93/46; RESP 18; TEMP 36.3; O2SAT 98
[2023-04-16 12:00] VITALS: BP 93/67; PULSE 51; RESP 18; TEMP 36.3
--- NOTE | 2023-04-16 12:00 | PC.NURSE ---
PRBC's infusing without difficulty. Instructed for s/s of reaction, tinformed to notify staff if develops and shortness of breath, chest pain itching ect. verbalize understanding. Meal ordered
[2023-04-16 12:57] VITALS: BP 109/60; PULSE 51; RESP 18; TEMP 36.2; O2SAT 97
[2023-04-16 13:00] VITALS: BP 109/60; PULSE 52; RESP 18; TEMP 36.3; O2SAT 99
--- NOTE | 2023-04-16 13:01 | PC.NURSE ---
100% meal taken, tolerting transfusion without any issues.
--- NOTE | 2023-04-16 14:24 | PC.NURSE ---
1410 PRBC's infused. line flushed with NSS, Tolerated well. IV dc'd site clear, pressure held x minutes followed by coban dressing. Ambulated to the bathroom to void. Released to private auto per w/c.
[2023-04-22 12:34] LABS: Hemoglobin 7.3 g/dL (14.0-18.0); Mean Corpuscular HGB Conc 31.3 g/dL (29.9-35.2); Mean Corpuscular Hemoglobin 33.5 pg (25.9-34.0); Mean Platelet Volume 13.6 fL (9.5-13.5); Platelet Count 85 10^3/uL (150-450); Red Blood Count 2.18 10^6/uL (4.70-6.10); Red Cell Distribution Width 22.5 % (11.0-15.0); White Blood Count 1.9 10^3/uL (4.0-11.0)
[2023-04-22 12:36] LABS: Hematocrit 23.3 % (42.0-54.0)
[2023-04-22 12:42] LABS: Band Neutrophils Absolute 0.1 10^3/uL (0.0-0.3); Lymphocytes Absolute Manual 0.53 10^3/uL (1.20-3.80); Mean Corpuscular Volume 106.9 fL (80.0-94.0); Monocytes Absolute Manual 0.38 10^3/uL (0.30-0.80)
[2023-04-22 12:43] LABS: Anisocytosis 2+; Segmented Neut Absolute Manual 0.93 10^3/uL (1.4-6.5)
[2023-04-23] MEDS: DIPHENHYDRAMINE HCL 25 MG CAPSULE PO (09:19)
[2023-04-23] MEDS: 0.9 % SODIUM CHLORIDE 250 ML 20 ML IV (09:19)
[2023-04-23] MEDS: ACETAMINOPHEN 325 MG TABLET 650 MG PO (09:19)
[2023-04-23 09:21] VITALS: BP 96/58; PULSE 67; RESP 16; TEMP 36.6; O2SAT 96
[2023-04-23 09:27] VITALS: BP 96/58; PULSE 67; RESP 18; TEMP 36.3; O2SAT 97
--- NOTE | 2023-04-23 09:33 | PC.NURSE ---
0905: Pt. to [facility] via w/c accompanied by . Assisted pt. to recliner. Pt. with cont. O2 @ 3L n/c. VSS. #22 gauge IV initiated to right hand on first attempt without difficulty. Pt. tolerated without c/o. Pt. given pre-transfusion meds. Denies needs or c/o. 0928: 1 unit PRBC intitated at this time. Warm blanket and pillow provided.
[2023-04-23 09:45] VITALS: BP 105/66; PULSE 56; RESP 18; TEMP 36.7; O2SAT 97
--- NOTE | 2023-04-23 10:15 | PC.NURSE ---
0945: Pt. without c/o. VSS. Denies needs.
--- NOTE | 2023-04-23 10:18 | PC.NURSE ---
Pt. denies c/o. Fluids provided. Declines snack or meal. Visiting with and sister.
[2023-04-23 10:30] VITALS: BP 128/55; PULSE 67; RESP 18; TEMP 36.7; O2SAT 98
--- NOTE | 2023-04-23 10:30 | PC.NURSE ---
1030: Pt. cont. to deny c/o or needs. VSS. IV site clear. Pt. without s&s of adverse transfusion reaction.
[2023-04-23 11:44] VITALS: BP 128/62; PULSE 68; RESP 18; TEMP 36.7; O2SAT 98
--- NOTE | 2023-04-23 11:46 | PC.NURSE ---
1135: Blood transfusion completed at this time without s&s of adverse reaction. VSS. IV d/c'd, pressure to site. Pt. up to bathroom to void. 1144: Pt. d/c'd via w/c to home with .
== END 2023-04-26 23:59 | disposition home or self-care (01) ==
LOC: INF 07:30
PROVIDERS: PCP Family Medicine; Visit Provider Internal Medicine Hematology & Oncology
DX: D46.9 Myelodysplastic syndrome, unspecified (principal); D61.818 Other pancytopenia
CPT/HCPCS: 36415; 36430; 80048; 80053; 85025; 85027; 86850; 86900; 86901; 86920; G0463; P9016

== ENCOUNTER 2023-05-27 07:26 | Outpatient (RCR) | payer MEDICARE, SELFPAY ==
[2023-04-29 13:47] LABS: Anion Gap 11.8; BUN Creatinine Ratio 14.5; Calcium 8.3 mg/dL (8.5-10.1); Carbon Dioxide 32.3 mmol/L (21.0-32.0); Chloride 100 mmol/L (98-107); Estimated GFR (African America 28 (>=60); Estimated GFR (Non-African Ame 23 (>=60); Glucose 150 mg/dL (74-106); Potassium 4.1 mmol/L (3.5-5.1); Sodium 140 mmol/L (136-145)
[2023-04-29 14:05] LABS: Basophils Percent Auto 0.4 % (0.2-2.0); Hemoglobin 7.7 g/dL (14.0-18.0); Immature Granulocytes Pct Auto 4.3 % (0.0-0.5); Lymphocytes Absolute Auto 0.7 10^3/uL (1.2-3.8); Lymphocytes Percent Auto 28.6 % (20.5-60.0); Mean Corpuscular HGB Conc 32.8 g/dL (29.9-35.2); Mean Corpuscular Hemoglobin 33.6 pg (25.9-34.0); Mean Corpuscular Volume 102.6 fL (80.0-94.0); Mean Platelet Volume 13.8 fL (9.5-13.5); Monocytes Absolute Auto 0.5 10^3/uL (0.3-0.8); Monocytes Percent Auto 20.8 % (1.7-12.0); Neutrophils Absolute Auto 1.1 10^3/uL (1.4-6.5); Neutrophils Percent Auto 45.9 % (43.0-75.0); Platelet Count 100 10^3/uL (150-450); Red Blood Count 2.29 10^6/uL (4.70-6.10); Red Cell Distribution Width 21.8 % (11.0-15.0); White Blood Count 2.3 10^3/uL (4.0-11.0)
[2023-04-29 14:07] LABS: Hematocrit 23.5 % (42.0-54.0)
[2023-04-30] MEDS: ACETAMINOPHEN 325 MG TABLET 650 MG PO (08:53)
[2023-04-30] MEDS: 0.9 % SODIUM CHLORIDE 250 ML IV (08:54)
[2023-04-30] MEDS: DIPHENHYDRAMINE HCL 25 MG CAPSULE PO (08:54)
[2023-04-30 08:57] VITALS: BP 102/60; PULSE 56; RESP 18; TEMP 36.6; O2SAT 94
--- NOTE | 2023-04-30 09:00 | PC.NURSE ---
0835 Arrival per wheelchair with . 0845 #22 IV initiated in left forearm, tolerated well. Alert oriented. Respirations with ease. Lungs clear to auscultation.
[2023-04-30 09:13] VITALS: BP 102/60; PULSE 56; RESP 18; TEMP 36.6; O2SAT 94
--- NOTE | 2023-04-30 09:14 | PC.NURSE ---
PRBC's initiated. Instructed on s/s of rxn, to report any shortness of breath chest pain, itching, back/flank pain, fever chills etc. verbalizes understanding
[2023-04-30 09:15] VITALS: BP 97/47; PULSE 56; RESP 18; TEMP 37; O2SAT 98
[2023-04-30 10:25] VITALS: BP 118/72; PULSE 56; RESP 18; TEMP 36.6; O2SAT 98
--- NOTE | 2023-04-30 12:50 | PC.NURSE ---
1115 prbcs infused. ns flush initiated. Eats 100% of meal.1145 NS flush completed. IV dc'd catheter intact. Released per wheel chair.
[2023-04-30 13:41] VITALS: BP 156/96; PULSE 79; RESP 18; TEMP 36.5; O2SAT 93
[2023-05-06 10:24] LABS: Hemoglobin 7.9 g/dL (14.0-18.0); Mean Corpuscular HGB Conc 31.6 g/dL (29.9-35.2); Mean Corpuscular Hemoglobin 33.5 pg (25.9-34.0); Mean Corpuscular Volume 105.9 fL (80.0-94.0); Mean Platelet Volume 13.7 fL (9.5-13.5); Platelet Count 114 10^3/uL (150-450); Red Blood Count 2.36 10^6/uL (4.70-6.10); Red Cell Distribution Width 21.3 % (11.0-15.0); White Blood Count 2.3 10^3/uL (4.0-11.0)
[2023-05-06 10:32] LABS: Anion Gap 14.9; BUN Creatinine Ratio 15.6; Calcium 8.7 mg/dL (8.5-10.1); Carbon Dioxide 27.8 mmol/L (21.0-32.0); Chloride 104 mmol/L (98-107); Estimated GFR (African America 39 (>=60); Estimated GFR (Non-African Ame 32 (>=60); Glucose 161 mg/dL (74-106); Potassium 3.7 mmol/L (3.5-5.1); Sodium 143 mmol/L (136-145)
[2023-05-06 11:24] LABS: Lymphocytes Absolute Manual 0.85 10^3/uL (1.20-3.80); Monocytes Absolute Manual 0.27 10^3/uL (0.30-0.80)
[2023-05-06 11:25] LABS: Anisocytosis 3+; Basophils Abs Manual 0.02 10^3/uL (0.00-0.10); Metamyelocytes Absolute Manual 0.04
[2023-05-07] VITALS (8 sets, daily range): BP systolic 108–167; BP diastolic 63–106; PULSE 53–94; RESP 18–22; TEMP 36.6–37.2; O2SAT 84–98
[2023-05-07] MEDS: DIPHENHYDRAMINE HCL 25 MG CAPSULE PO (09:10)
[2023-05-07] MEDS: 0.9 % SODIUM CHLORIDE 250 ML 20 ML IV (09:11)
--- NOTE | 2023-05-07 09:37 | PC.NURSE ---
Patient's lungs are clear throughout. No edema noted to extremities. Patient in recliner alert and oriented. Educated on transfusion reactions.
--- NOTE | 2023-05-07 09:51 | PC.NURSE ---
Patient tolerated the first 15 minutes well. Vitals taken, see chart. Patient has no complaints. Increased PRBCs to 180mL/hr
--- NOTE | 2023-05-07 10:28 | PC.NURSE ---
Patient's PRBCs increased to 200mL/hr at this time. Patient tolerating well. Lungs are clear and diminished throughout. Patient states they are feeling well.
--- NOTE | 2023-05-07 11:58 | XR_ITS ---
The [address] [address] Patient Name: SANDIP BROUSSARD MRN: [id number] date: 1940 Sex: M Assigned Patient Location: [facility] Current Patient Location: [facility] Accession/Order Number: [id number] Exam Date: 05/07/2023 11:52 Report Date: 05/07/2023 12:15 At the request of: MATHEUS KAPOOR Procedure: XR chest 1V EXAMINATION: XR chest 1V HISTORY: Shortness of Breath COMPARISON: XR chest 11/16/2022 FINDINGS: LUNGS: Mild haziness and stranding within lung bases. VASCULATURE: No increased pulmonary vasculature. PLEURA: No pneumothorax, effusion, or pleural thickening. CARDIAC: Stable cardiomegaly. MEDIASTINUM: No visible mass or adenopathy. BONES: No fracture or visible bone lesion. OTHER: Negative. XR/XR chest 1V IMPRESSION: 1. Suspect trace amount bibasilar infiltrates versus atelectasis; significantly improved compared to prior study. 2. Stable cardiomegaly. Electronically authenticated by: OUMOU MONTIEL Date: 05/07/2023 12:15
--- NOTE | 2023-05-07 12:01 | PC.NURSE ---
Pt. O2 sat 84% on 3lpm/NC. O2 increased to 4lmp/NC and slow breathing encouraged. O2 sat increased to 94% after approx. five minutes.
--- NOTE | 2023-05-07 12:08 | PC.NURSE ---
PRBC were completed at 11:20. Patient complained of chills and shortness of breath after completion at 1130. Puneet listened to pt. lungs. Lung sounds clear but diminished. Slight audible wheezes noted and vigorous chills. Patient afebrile. Vitals were taken and Dr. Machado was called per MONET Teixeira. MONET Teixeira received verbal orders for 25mg IV Benadryl push. MONET Teixeira administered IV Benadryl at 1130. Stat chest x-ray was completed. Labs drawn per protocol and blood bag and tubing returned to lab. At this time 1215, patient states he feels back to normal . Vitals stables, no signs of chills. Patient has no complaints at this time.
--- NOTE | 2023-05-07 12:43 | PC.NURSE ---
MONET Teixeira spoke to Dr. Machado who okay-ed patient to go home. Patient wheeled out by .
[2023-05-13 11:36] LABS: Basophils Percent Auto 0.3 % (0.2-2.0); Hematocrit 24.5 % (42.0-54.0); Hemoglobin 7.9 g/dL (14.0-18.0); Immature Granulocytes Pct Auto 6.4 % (0.0-0.5); Lymphocytes Absolute Auto 0.8 10^3/uL (1.2-3.8); Lymphocytes Percent Auto 26.2 % (20.5-60.0); Mean Corpuscular HGB Conc 32.2 g/dL (29.9-35.2); Mean Corpuscular Hemoglobin 34.1 pg (25.9-34.0); Mean Corpuscular Volume 105.6 fL (80.0-94.0); Mean Platelet Volume 14.6 fL (9.5-13.5); Monocytes Absolute Auto 0.7 10^3/uL (0.3-0.8); Neutrophils Absolute Auto 1.4 10^3/uL (1.4-6.5); Neutrophils Percent Auto 44.1 % (43.0-75.0); Platelet Count 108 10^3/uL (150-450); Red Blood Count 2.32 10^6/uL (4.70-6.10); Red Cell Distribution Width 21.2 % (11.0-15.0); White Blood Count 3.1 10^3/uL (4.0-11.0)
[2023-05-20 10:20] LABS: Basophils Percent Auto 0.3 % (0.2-2.0); Eosinophils Percent Auto 0.3 % (0.9-7.0); Hemoglobin 7.3 g/dL (14.0-18.0); Immature Granulocytes Abs Auto 0.11 10^3/uL (0.00-0.03); Immature Granulocytes Pct Auto 3.7 % (0.0-0.5); Lymphocytes Absolute Auto 1.1 10^3/uL (1.2-3.8); Lymphocytes Percent Auto 36.2 % (20.5-60.0); Mean Corpuscular HGB Conc 31.7 g/dL (29.9-35.2); Mean Corpuscular Hemoglobin 33.5 pg (25.9-34.0); Mean Platelet Volume 13.8 fL (9.5-13.5); Monocytes Absolute Auto 0.7 10^3/uL (0.3-0.8); Monocytes Percent Auto 22.6 % (1.7-12.0); Neutrophils Absolute Auto 1.1 10^3/uL (1.4-6.5); Neutrophils Percent Auto 36.9 % (43.0-75.0); Platelet Count 84 10^3/uL (150-450); Red Blood Count 2.18 10^6/uL (4.70-6.10); Red Cell Distribution Width 21.4 % (11.0-15.0)
[2023-05-20 10:22] LABS: Mean Corpuscular Volume 105.5 fL (80.0-94.0)
[2023-05-21] MEDS: DIPHENHYDRAMINE HCL 25 MG CAPSULE PO (08:32)
[2023-05-21] MEDS: ACETAMINOPHEN 325 MG TABLET 650 MG PO (08:32)
[2023-05-21 08:47] VITALS: BP 121/68; PULSE 77; RESP 20; TEMP 36.4; O2SAT 98
[2023-05-21 08:56] LABS: Anion Gap 11.1; Calcium 8.5 mg/dL (8.5-10.1); Carbon Dioxide 30.1 mmol/L (21.0-32.0); Chloride 104 mmol/L (98-107); Estimated GFR (African America 40 (>=60); Estimated GFR (Non-African Ame 33 (>=60); Glucose 115 mg/dL (74-106); Potassium 4.2 mmol/L (3.5-5.1); Sodium 141 mmol/L (136-145)
[2023-05-21 08:57] VITALS: BP 121/68; PULSE 71; RESP 20; TEMP 36.4; O2SAT 98
--- NOTE | 2023-05-21 09:01 | PC.NURSE ---
0815: Pt. to [facility] via w/c accompanied by . Assisted to recliner chair. Denies c/o dyspnea, n/v and minimal c/o pain. Relays chronic low back discomfort. Pillow placed behind back. O2 in place at 3L n/c. VSS. #2 gauge IV initiated to right hand on first attempt. Blood drawn for ordered labs. Pt. tolerated without c/o. Pre-infusion meds provided. 0852: 1 unit PRBC initiated at this time. Pt. without c/o or needs. Given water. Declines food.
[2023-05-21 09:09] VITALS: BP 106/56; PULSE 64; RESP 18; TEMP 36.3; O2SAT 100
--- NOTE | 2023-05-21 09:10 | PC.NURSE ---
Pt. tolerating transfusion without s&s of adverse reaction. Denies chills or dyspnea. Relays comfort. VSS.
[2023-05-21 09:52] VITALS: BP 128/62; PULSE 71; RESP 18; TEMP 36.6; O2SAT 98
[2023-05-21 11:18] VITALS: BP 114/64; PULSE 89; RESP 16; TEMP 36.6; O2SAT 99
--- NOTE | 2023-05-21 11:34 | PC.NURSE ---
1115: PRBC transfusion complete without s&s of transfusion reaction. VSS. IV d/c'd, pressure to site. Pt. tolerated without c/o. 1118: Pt. d/c'd, via w/c to car and home with .
[2023-05-27 11:00] LABS: Basophils Percent Auto 0.7 % (0.2-2.0); Eosinophils Percent Auto 0.3 % (0.9-7.0); Hematocrit 24.8 % (42.0-54.0); Hemoglobin 7.8 g/dL (14.0-18.0); Immature Granulocytes Abs Auto 0.13 10^3/uL (0.00-0.03); Immature Granulocytes Pct Auto 4.2 % (0.0-0.5); Lymphocytes Absolute Auto 1.1 10^3/uL (1.2-3.8); Lymphocytes Percent Auto 36.5 % (20.5-60.0); Mean Corpuscular HGB Conc 31.5 g/dL (29.9-35.2); Mean Corpuscular Hemoglobin 32.9 pg (25.9-34.0); Mean Corpuscular Volume 104.6 fL (80.0-94.0); Monocytes Absolute Auto 0.7 10^3/uL (0.3-0.8); Monocytes Percent Auto 21.2 % (1.7-12.0); Neutrophils Absolute Auto 1.1 10^3/uL (1.4-6.5); Neutrophils Percent Auto 37.1 % (43.0-75.0); Platelet Count 99 10^3/uL (150-450); Red Blood Count 2.37 10^6/uL (4.70-6.10); Red Cell Distribution Width 20.4 % (11.0-15.0); White Blood Count 3.1 10^3/uL (4.0-11.0)
== END 2023-05-27 23:59 | disposition home or self-care (01) ==
LOC: INF 07:26
PROVIDERS: PCP Family Medicine; Visit Provider Internal Medicine Hematology & Oncology
DX: D46.9 Myelodysplastic syndrome, unspecified (principal)
CPT/HCPCS: 36415; 36430; 71045; 80048; 85025; 85027; 86850; 86900; 86901; G0463; P9016

== ENCOUNTER 2023-06-24 13:00 | Outpatient (RCR) | payer MEDICARE, SELFPAY ==
[2023-06-03 12:31] LABS: Basophils Percent Auto 0.7 % (0.2-2.0); Eosinophils Percent Auto 0.3 % (0.9-7.0); Hematocrit 24.1 % (42.0-54.0); Hemoglobin 7.6 g/dL (14.0-18.0); Immature Granulocytes Abs Auto 0.06 10^3/uL (0.00-0.03); Lymphocytes Absolute Auto 0.8 10^3/uL (1.2-3.8); Lymphocytes Percent Auto 25.6 % (20.5-60.0); Mean Corpuscular HGB Conc 31.5 g/dL (29.9-35.2); Mean Corpuscular Hemoglobin 32.8 pg (25.9-34.0); Mean Corpuscular Volume 103.9 fL (80.0-94.0); Monocytes Absolute Auto 0.6 10^3/uL (0.3-0.8); Monocytes Percent Auto 19.9 % (1.7-12.0); Neutrophils Absolute Auto 1.5 10^3/uL (1.4-6.5); Neutrophils Percent Auto 51.5 % (43.0-75.0); Platelet Count 106 10^3/uL (150-450); Red Blood Count 2.32 10^6/uL (4.70-6.10); Red Cell Distribution Width 21.1 % (11.0-15.0)
[2023-06-10 12:02] LABS: Hemoglobin 7.3 g/dL (14.0-18.0); Mean Corpuscular HGB Conc 31.9 g/dL (29.9-35.2); Mean Corpuscular Volume 106.5 fL (80.0-94.0); Platelet Count 113 10^3/uL (150-450); Red Blood Count 2.15 10^6/uL (4.70-6.10); Red Cell Distribution Width 21.5 % (11.0-15.0); White Blood Count 4.1 10^3/uL (4.0-11.0)
[2023-06-10 12:04] LABS: Hematocrit 22.9 % (42.0-54.0)
[2023-06-10 12:27] LABS: Band Neutrophils Absolute 0.1 10^3/uL (0.0-0.3); Lymphocytes Absolute Manual 0.69 10^3/uL (1.20-3.80); Monocytes Absolute Manual 0.65 10^3/uL (0.30-0.80); Segmented Neut Absolute Manual 2.62 10^3/uL (1.4-6.5)
[2023-06-10 12:29] LABS: Anisocytosis 2+; Hypochromasia 2+; Macrocytosis 1+
[2023-06-10 12:30] LABS: Giant Platelets 1+
[2023-06-11 09:04] VITALS: BP 136/78; PULSE 81; RESP 16; TEMP 36.7; O2SAT 93
[2023-06-11] MEDS: ACETAMINOPHEN 325 MG TABLET 650 MG PO (09:15)
[2023-06-11] MEDS: DIPHENHYDRAMINE HCL 25 MG CAPSULE PO (09:15)
[2023-06-11] MEDS: 0.9 % SODIUM CHLORIDE 250 ML 10 ML IV (09:40)
[2023-06-11 09:54] VITALS: BP 127/68; PULSE 49; RESP 16; TEMP 36.3; O2SAT 100
[2023-06-11 10:13] VITALS: BP 109/64; PULSE 66; RESP 16; TEMP 36.2; O2SAT 100
[2023-06-11 11:13] VITALS: BP 117/72; PULSE 54; RESP 16; TEMP 36.4; O2SAT 98
[2023-06-11 12:13] VITALS: BP 115/75; PULSE 64; RESP 16; TEMP 36.2; O2SAT 100
[2023-06-24 12:12] LABS: Basophils Percent Auto 0.3 % (0.2-2.0); Immature Granulocytes Abs Auto 0.13 10^3/uL (0.00-0.03); Immature Granulocytes Pct Auto 4.1 % (0.0-0.5); Lymphocytes Absolute Auto 0.8 10^3/uL (1.2-3.8); Lymphocytes Percent Auto 25.3 % (20.5-60.0); Mean Corpuscular HGB Conc 32.3 g/dL (29.9-35.2); Mean Corpuscular Hemoglobin 33.5 pg (25.9-34.0); Mean Corpuscular Volume 103.6 fL (80.0-94.0); Monocytes Absolute Auto 0.6 10^3/uL (0.3-0.8); Monocytes Percent Auto 17.7 % (1.7-12.0); Neutrophils Absolute Auto 1.7 10^3/uL (1.4-6.5); Neutrophils Percent Auto 52.6 % (43.0-75.0); Platelet Count 81 10^3/uL (150-450); Red Blood Count 1.94 10^6/uL (4.70-6.10); Red Cell Distribution Width 21.2 % (11.0-15.0); White Blood Count 3.2 10^3/uL (4.0-11.0)
[2023-06-24 12:20] LABS: Mean Platelet Volume 14.3 fL (9.5-13.5)
[2023-06-24 12:21] LABS: Hemoglobin 6.5 g/dL (14.0-18.0)
[2023-06-24 12:22] LABS: Hematocrit 20.1 % (42.0-54.0)
[2023-06-24 12:26] LABS: Anion Gap 17.7; BUN Creatinine Ratio 28.8; Calcium 8.6 mg/dL (8.5-10.1); Chloride 98 mmol/L (98-107); Estimated GFR (African America 22 (>=60); Estimated GFR (Non-African Ame 18 (>=60); Glucose 181 mg/dL (74-106); Potassium 3.7 mmol/L (3.5-5.1); Sodium 141 mmol/L (136-145)
[2023-06-24] MEDS: ACETAMINOPHEN 325 MG TABLET 650 MG PO (12:59)
[2023-06-24] MEDS: DIPHENHYDRAMINE HCL 25 MG CAPSULE PO (13:00)
[2023-06-24] MEDS: 0.9 % SODIUM CHLORIDE 250 ML 10 ML IV (13:01)
--- NOTE | 2023-06-24 13:10 | PC.NURSE ---
Arrived per wheelchair to chair 3, alert oriented. Iv initiated racf on 3rd attempt #20, patient tolerated well. Respirations with ease lungs clear posteriorly to ausculatation, heart tones strong and regular. no peripheral edema noted.
[2023-06-24 13:33] VITALS: BP 110/68; PULSE 69; RESP 18; TEMP 36.7
--- NOTE | 2023-06-24 13:40 | PC.NURSE ---
1st unit of prbc's initiated, instructed to call for anychest pain, shortness of breath flank pain itching wheezing etc. patient verbalizes understanding. Sister at bedside.
[2023-06-24 13:52] VITALS: BP 115/61; PULSE 50; RESP 14; TEMP 36.7
--- NOTE | 2023-06-24 14:03 | PC.NURSE ---
toleratating prbc's without difficulty. no complaints offered.
[2023-06-24 14:50] VITALS: BP 106/68; PULSE 56; RESP 16; TEMP 36.6; O2SAT 97
--- NOTE | 2023-06-24 16:34 | PC.NURSE ---
1543 prbc's infused. Tolerated without any issues, lungs clear to ausucltation, heart tones strong and regular 1600 to BR per wheelchair, voids. 1600 sits with sister, wating for to return, 1630 released per wheelchair.
== END 2023-06-26 23:59 | disposition home or self-care (01) ==
LOC: INF 13:00
PROVIDERS: PCP Family Medicine; Visit Provider Internal Medicine Hematology & Oncology
DX: D46.9 Myelodysplastic syndrome, unspecified (principal); Z87.891 Personal history of nicotine dependence
CPT/HCPCS: 36415; 36430; 80048; 85025; 85027; 86850; 86900; 86901; G0463; P9016; P9038

== ENCOUNTER 2023-07-08 07:26 | Outpatient (RCR) | payer MEDICARE, SELFPAY ==
[2023-07-08 11:46] LABS: Basophils Percent Auto 0.5 % (0.2-2.0); Immature Granulocytes Abs Auto 0.08 10^3/uL (0.00-0.03); Lymphocytes Absolute Auto 0.9 10^3/uL (1.2-3.8); Lymphocytes Percent Auto 21.4 % (20.5-60.0); Mean Corpuscular Hemoglobin 34.2 pg (25.9-34.0); Mean Corpuscular Volume 103.5 fL (80.0-94.0); Mean Platelet Volume 14.5 fL (9.5-13.5); Monocytes Absolute Auto 0.8 10^3/uL (0.3-0.8); Monocytes Percent Auto 20.7 % (1.7-12.0); Neutrophils Absolute Auto 2.2 10^3/uL (1.4-6.5); Neutrophils Percent Auto 55.4 % (43.0-75.0); Platelet Count 140 10^3/uL (150-450); Red Blood Count 1.99 10^6/uL (4.70-6.10); Red Cell Distribution Width 21.2 % (11.0-15.0)
[2023-07-08 11:47] LABS: BUN Creatinine Ratio 28.9; Calcium 8.2 mg/dL (8.5-10.1); Carbon Dioxide 25.7 mmol/L (21.0-32.0); Chloride 101 mmol/L (98-107); Estimated GFR (African America 20 (>=60); Estimated GFR (Non-African Ame 16 (>=60); Glucose 152 mg/dL (74-106); Potassium 3.7 mmol/L (3.5-5.1); Sodium 141 mmol/L (136-145)
[2023-07-08 11:48] LABS: Hematocrit 20.6 % (42.0-54.0); Hemoglobin 6.8 g/dL (14.0-18.0)
== END 2023-07-08 12:00 | disposition admitted as inpatient to this hospital (09) ==
LOC: INF 07:26
PROVIDERS: PCP Family Medicine; Visit Provider Internal Medicine Hematology & Oncology
DX: D46.9 Myelodysplastic syndrome, unspecified (principal); Z87.891 Personal history of nicotine dependence; I25.10 Atherosclerotic heart disease of native coronary artery without angina pectoris; N18.9 Chronic kidney disease, unspecified; Z99.81 Dependence on supplemental oxygen; D61.818 Other pancytopenia
CPT/HCPCS: 36415; 80048; 85025; G0463

== ENCOUNTER 2023-07-08 11:56 | Inpatient (IN) | payer MEDICARE, SELFPAY ==
[2023-07-08] VITALS (15 sets, daily range): BP systolic 98–131; BP diastolic 44–73; PULSE 43–77; RESP 16–20; TEMP 36.4–36.8; O2SAT 95–100; BMI 34.5; BMI 32.0
--- NOTE | 2023-07-08 12:08 | ECG_ITS ---
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
--- NOTE | 2023-07-08 12:27 | XR_ITS ---
The [address] [address] Patient Name: SANDIP BROUSSARD MRN: [id number] date: 1940 Sex: M Assigned Patient Location: ER Current Patient Location: ER Accession/Order Number: [id number] Exam Date: 07/08/2023 12:22 Report Date: 07/08/2023 12:38 At the request of: YESICA MEADOWS Procedure: XR chest 1V EXAM: XR chest 1V at 1222 hours HISTORY: bradycardia COMPARISON: 05/07/2023 TECHNIQUE: AP upright portable chest x-ray FINDINGS: The heart remains enlarged with prominence of the central pulmonary vasculature. There has been improved aeration at the right lung base and the left lung base is obscured. No focal infiltrate, effusion or pneumothorax is clearly visualized. The osseous structures are grossly intact. XR/XR chest 1V IMPRESSION: Cardiac enlargement with prominence of the central pulmonary vasculature. Interval improvement of vascular congestion and improved aeration at the lung bases. An underlying abnormality at the left lung base is difficult to entirely exclude, however. Electronically authenticated by: MARKEL GERONIMO Date: 07/08/2023 12:38
[2023-07-08] MEDS: 0.9 % SODIUM CHLORIDE 1,000 ML 999 ML IV (12:29)
--- NOTE | 2023-07-08 13:09 | ED.MEDCLEAR1 ---
HPI - Medical Clearance General Chief complaint: Medical Clearance Stated complaint: slow heart rate/ abnormal lab value Time Seen by Provider: 07/08/23 12:01 Source: family Mode of arrival: Wheelchair Limitations: no limitations History of Present Illness HPI Narrative: the patient suffers from chronic anemia and is currently seeing Dr. Machado, iron carrier, and gets regularly scheduled transfusions. He was in the office to be evaluated after having blood testing that revealed decreased hemoglobin. The plan is for him to receive IV packed red blood cells. However the nurses noted that the patient's heart rate in the office was only 40 bpm, so they sent him over to the emergency department for evaluation. He suffers from chronic fatigue. He denied any associated chest pain or shortness of breath today. He sometimes has dizziness going from sitting to standing, he feels this is no worse today. He denied any black tarry stools or bright red blood per rectum or in his urine. Related Information Home Medications Medication Instructions Recorded Confirmed aspirin 81 mg tablet,delayed 81 mg PO QPM 02/03/23 04/23/23 release bumetanide 1 mg tablet 2 mg PO BID 02/03/23 04/23/23 dapagliflozin propanediol 10 mg 10 mg PO DAILY 02/03/23 04/23/23 tablet (Farxiga) dexamethasone 2 mg tablet 2 mg PO DAILY 02/03/23 04/23/23 glipizide 5 mg tablet 5 mg PO QPM 02/03/23 04/23/23 metoprolol tartrate 25 mg tablet 12.5 mg PO DAILY 02/03/23 04/23/23 omeprazole 40 mg capsule,delayed 40 mg PO DAILY 02/03/23 04/23/23 release potassium chloride 10 mEq 20 meq PO DAILY 02/03/23 04/23/23 tablet,extended release (K-Tab) sennosides 8.6 mg-docusate sodium 2 tab-cap PO QPM 02/03/23 04/23/23 50 mg tablet (Docuzen) spironolactone 25 mg tablet 25 mg PO DAILY 02/03/23 04/23/23 (Aldactone) terazosin 5 mg capsule 5 mg PO QPM 02/03/23 04/23/23 atorvastatin 20 mg tablet 20 mg PO .q hs 04/23/23 04/23/23 blood sugar diagnostic (OneTouch 04/23/23 04/23/23 Ultra Test strips) colchicine 0.6 mg tablet 0.6 mg PO TID 04/23/23 04/23/23 ibuprofen 600 tab PO .bid PRN pain 04/23/23 04/23/23 lisinopril 10 mg tablet 10 mg PO DAILY 04/23/23 04/23/23 Allergies Allergy/AdvReac Type Severity Reaction Status Date / Time bee venom protein (honey bee) Allergy Severe Verified 02/03/23 11:28 coreg Allergy Severe Uncoded 02/03/23 11:34 PFSH [facility] Medical History (Updated 07/08/23 @ 13:39 by Yeisca Meadows) Hyperlipemia ?E78.5 - Hyperlipidemia, unspecified (ICD-10) Diabetes ?E11.9 - Type 2 diabetes mellitus without complications (ICD-10) Transfusion of blood during current hospitalisation Hypertension ?I10 - Essential (primary) hypertension (ICD-10) 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, valve unspecified (ICD-10) Anemia ?D64.9 - Anemia, unspecified (ICD-10) Surgical History (Updated 02/03/23 @ 15:57 by Khadijah Mohan) History of heart artery stent ?Z95.5 - Presence of coronary angioplasty implant and graft (ICD-10) Family History (Updated 02/03/23 @ 15:58 by Khadijah Mohan) Father Family history of stroke Mother Family history of stroke Family history of hypertension Family history of CHF (congestive heart failure) Brother Family history of diabetes mellitus Sister Family history of cancer Social History (Updated 02/03/23 @ 16:00 by Khadijah Mohan) Within the past year, how often did you have a drink containing alcohol: never Score interpretation: A score less than 4 is consistent with normal alcohol consumption. 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 level of school completed/degree received: high school graduate Are you now , , , , never or living with a partner: In a typical week, how many times do you talk on the telephone with family, friends, or neighbors: 3 or more times per week How often do you get together with friends or relatives: 3 or more times per week How often do you attend zoroastrianism or alevism services: 1-3 times per year Little interest or pleasure in doing things: not at all Feeling down, depressed, or hopeless: not at all Feel stressed/tense/nervous/anxious/difficulty sleeping: not at all Life stressors: unknown source of stress Do you think of yourself as: straight/heterosexual Gender Identity: male Exam Narrative Exam Narrative: Nurses notes and vital signs reviewed and patient is not hypoxic. afebrile General: Well-appearing and in no apparent distress. Skin: Warm, dry, no pallor noted. Eye: Pupils are equal, round and EOMI. No scleral icterus. Cardiovascular: Regular Rate and Rhythm without murmur, gallop or rub. Respiratory: No accessory muscle use or respiratory distress. Lungs are clear to auscultation, no wheezing, rales or rhonchi Back: No CVA tenderness Musculoskeletal: normal ROM, no calf or popliteal tenderness, no lower extremity edema/swelling GI: Abdomen is soft, non-distended. Normal bowel sounds. No masses appreciated. No tenderness to palpation. No rebound, guarding, or rigidity noted. Neurological: A&O x4. No cranial nerve dysfunction observed. No truncal ataxia. Moves all extremities. Sensation intact. Psychiatric: Cooperative and interactive. Normal mood and affect. Constitutional Vital Signs, click to edit/add: Last Vital Signs Temp 97.8 F 07/08/23 13:20 Pulse 65 07/08/23 13:20 Resp 16 07/08/23 13:20 BP 107/50 07/08/23 13:20 Pulse Ox 100 07/08/23 12:03 O2 Del Method Nasal Cannula 07/08/23 12:21 O2 Flow Rate 2 07/08/23 12:21 Course Vital Signs Vital signs: Vital Signs Temperature 97.9 F 07/08/23 12:03 Pulse Rate 65 07/08/23 12:03 Respiratory Rate 18 07/08/23 12:03 Blood Pressure 104/45 L 07/08/23 12:03 Pulse Oximetry 100 07/08/23 12:03 Oxygen Delivery Method Nasal Cannula 07/08/23 12:03 Oxygen Delivery Flow Rate 3 07/08/23 12:03 Temperature 97.8 F 07/08/23 13:20 Pulse Rate 65 07/08/23 13:20 Respiratory Rate 16 07/08/23 13:20 Blood Pressure 107/50 07/08/23 13:20 Pulse Oximetry 100 07/08/23 12:03 Oxygen Delivery Method Nasal Cannula 07/08/23 12:21 Oxygen Delivery Flow Rate 2 07/08/23 12:21 MDM - Medical Clearance MDM Narrative Medical decision making narrative: Patient was placed on desk monitor and EKG obtained. CXR obtained. Patient had blood drawn and sent for evaluation earlier today and I was able to review those results. Hb 6.8, Hct 20.6. BUN 103, Cr 3.56. BUN was 45, creatinine was 1.9 on 02/04/2023. CXR I talked with the patient and family. The patient is on several diuretics. He has been on some level fluid restriction recently as well. He is known to have stage IV kidney disease , according to the family member in the room with him. He does not see a local recording studio internship. Instead this managed between his primary care physician, Dr. Hernandes, the pulpit operator and the iron carrier, told me. call placed to the on-call admitting physician, Dr. Villafana, to discuss admission. She agreed to admit the patient to [facility] telemetry under her service. Patient understands the findings, diagnosis and need for admission. Lab Data Attestation: I reviewed the patient's lab results. Labs: Lab Results 07/08/23 Range/Units 11:10 Blood Type A Positive Antibody Screen Negative Crossmatch See Detail Imaging Data Chest x-ray: Radiologist's impression: Patient Name: SANDIP BROUSSARD MRN: [id number] date: 1940 Sex: M Assigned Patient Location: ER Current Patient Location: ER Accession/Order Number: [id number] Exam Date: 07/08/2023 12:22 Report Date: 07/08/2023 12:38 At the request of: YESICA MEADOWS Procedure: XR chest 1V EXAM: XR chest 1V at 1222 hours HISTORY: bradycardia COMPARISON: 05/07/2023 TECHNIQUE: AP upright portable chest x-ray FINDINGS: The heart remains enlarged with prominence of the central pulmonary vasculature. There has been improved aeration at the right lung base and the left lung base is obscured. No focal infiltrate, effusion or pneumothorax is clearly visualized. The osseous structures are grossly intact. IMPRESSION: Cardiac enlargement with prominence of the central pulmonary vasculature. Interval improvement of vascular congestion and improved aeration at the lung bases. An underlying abnormality at the left lung base is difficult to entirely exclude, however. Electronically authenticated by: MARKEL GERONIMO Date: 07/08/2023 12:38 ECG Data Attestation: I personally reviewed and interpreted this ECG as follows: Interpretation: EKG interpretation: Emergency Department physician interpretation. Normal sinus rhythm at 71bpm. abnormal right axis deviation, non-specific T changes no ST segment elevation or depression. Similar to EKG obtained on 11/13/22. Discharge Plan Discharge Chief Complaint: Medical Clearance Clinical Impression: Anemia requiring transfusions, Acute kidney injury Patient Disposition: Admitted As Inpatient Prescriptions / Home Meds: No Action bumetanide 1 mg tablet 2 mg PO BID dexamethasone 2 mg tablet 2 mg PO DAILY Farxiga 10 mg tablet 10 mg PO DAILY metoprolol tartrate 25 mg tablet 12.5 mg PO DAILY omeprazole 40 mg capsule,delayed release(DR/EC) 40 mg PO DAILY potassium chloride [K-Tab] 10 mEq tablet extended release 20 meq PO DAILY spironolactone [Aldactone] 25 mg tablet 25 mg PO DAILY glipizide 5 mg tablet 5 mg PO QPM terazosin 5 mg capsule 5 mg PO QPM aspirin 81 mg tablet,delayed release (DR/EC) 81 mg PO QPM sennosides-docusate sodium [Docuzen] 8.6-50 mg tablet 2 tab-cap PO QPM atorvastatin 20 mg tablet 20 mg PO .q hs (DME) OneTouch Ultra Test Strip MISCELLANEOUS colchicine 0.6 mg tablet 0.6 mg PO TID lisinopril 10 mg tablet 10 mg PO DAILY ibuprofen 600 tab PO .bid PRN (Reason: pain) Rx Instructions: 600; Additional Instructions: dr villafana, inpatient, medsurg w telemetry Referrals: JACQUELIN EHRNANDES [Primary Care Provider] - 1 week
[2023-07-08] MEDS: 0.9 % SODIUM CHLORIDE 500 ML 100 ML IV (13:22)
--- NOTE | 2023-07-08 13:42 | ED_ITS ---
HPI - Medical Clearance General Chief complaint: Medical Clearance Stated complaint: slow heart rate/ abnormal lab value Time Seen by Provider: 07/08/23 12:01 Source: family Mode of arrival: Wheelchair Limitations: no limitations Related Information Home Medications Medication Instructions Recorded Confirmed aspirin 81 mg tablet,delayed 81 mg PO QPM 02/03/23 07/09/23 release dapagliflozin propanediol 10 mg 10 mg PO DAILY 02/03/23 07/09/23 tablet (Farxiga) omeprazole 40 mg capsule,delayed 40 mg PO DAILY 02/03/23 07/09/23 release spironolactone 25 mg tablet 25 mg PO DAILY 02/03/23 07/09/23 (Aldactone) terazosin 5 mg capsule 5 mg PO QPM 02/03/23 07/09/23 atorvastatin 20 mg tablet 20 mg PO QDAY 04/23/23 07/09/23 blood sugar diagnostic (OneTouch 04/23/23 07/09/23 Ultra Test strips) cholecalciferol (vitamin D3) 25 25 mcg PO DAILY 07/09/23 07/09/23 mcg (1,000 unit) tablet (Vitamin D3) cyclobenzaprine 5 mg tablet 5 mg PO BID PRN muscle spasm 07/09/23 07/09/23 glipizide 5 mg tablet, extended 5 mg PO QPM 07/09/23 07/09/23 release 24 hr (Glucotrol XL) metoprolol succinate 25 mg 25 mg PO DAILY 07/09/23 07/09/23 tablet,extended release 24 hr (Toprol XL) Previous Rx's Medication Instructions Recorded bumetanide 1 mg tablet 1 mg PO QAM #0 tabs 07/10/23 febuxostat 40 mg tablet 40 mg PO DAILY 30 days #30 tabs 07/10/23 lisinopril 2.5 mg tablet 2.5 mg PO DAILY 30 days #30 tabs 07/10/23 Allergies Allergy/AdvReac Type Severity Reaction Status Date / Time bee venom protein (honey bee) Allergy Severe Verified 02/03/23 11:28 coreg Allergy Severe Uncoded 02/03/23 11:34 [facility] Medical History (Updated 07/14/23 @ 00:00 by ) CHF (congestive heart failure) ?I50.9 - Heart failure, unspecified (ICD-10) Myelodysplastic disease ?C94.6 - Myelodysplastic disease, not elsewhere classified (ICD-10) Anemia ?D64.9 - Anemia, unspecified (ICD-10) Hyperlipemia ?E78.5 - Hyperlipidemia, unspecified (ICD-10) Diabetes ?E11.9 - Type 2 diabetes mellitus without complications (ICD-10) Transfusion of blood during current hospitalisation Hypertension ?I10 - Essential (primary) hypertension (ICD-10) 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, valve unspecified (ICD-10) Anemia ?D64.9 - Anemia, unspecified (ICD-10) Surgical History History of heart artery stent ?Z95.5 - Presence of coronary angioplasty implant and graft (ICD-10) Family History Father Family history of stroke Mother Family history of stroke Family history of hypertension Family history of CHF (congestive heart failure) Brother Family history of diabetes mellitus Sister Family history of cancer Social History Within the past year, how often did you have a drink containing alcohol: never Score interpretation: A score less than 4 is consistent with normal alcohol consumption. 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 level of school completed/degree received: high school graduate Are you now , , , , never or living with a partner: In a typical week, how many times do you talk on the telephone with family, friends, or neighbors: 3 or more times per week How often do you get together with friends or relatives: 3 or more times per week How often do you attend druze or pentecostal services: 1-3 times per year Little interest or pleasure in doing things: not at all Feeling down, depressed, or hopeless: not at all Feel stressed/tense/nervous/anxious/difficulty sleeping: not at all Life stressors: unknown source of stress Do you think of yourself as: straight/heterosexual Gender Identity: male Exam Constitutional Vital Signs, click to edit/add: Last Vital Signs Temp 98.5 F 07/10/23 05:36 Pulse 78 07/10/23 13:59 Resp 20 07/10/23 05:36 BP 120/69 07/10/23 05:36 Pulse Ox 97 07/10/23 11:08 O2 Del Method Nasal Cannula 07/10/23 11:08 O2 Flow Rate 2 07/10/23 11:08 Course Course Hospital Course: patient is a 82-year-old male with history of myelodysplastic syndrome, chronic kidney disease stage IV, anemia of chronic disease, history of iron deficiency, history of gastrointestinal blood loss related iron deficiency, history of congestive heart failure with low ejection fraction of twenty percent, prior history of myocardial infarction who presented today from oncology clinic where he was to receive a transfusion of packed red blood cells for his chronic anemia when they noticed elevation of his renal function from baseline. Cr. was 3.56 and BUN 103. Held diuretics and provide gentle fluid hydration of NS @50. Nephrology consult and made adjustments to home meds. I added Uloric 20mg for hyperuricemia but increased to 40mg daily. Will stop metolazone, stop potassium, decrease lisinopril to 2.5mg daily, continue spironolactone 25mg daily and decrease Bumex to 1mg daily. All other medications will remain the same. Patient received a total of 3 units of PRBC's and discharge hemoglobin is 8.6. He will be discharged home with close follow up with PCP, Oncology, and cardiology. He will need cbc, bmp and uric acid in the next 1 week. Close monitoring of BP and fluid status is imperative since a few medication changes have occurred. he is to return to the ER with any worsening signs or symptoms. Vital Signs Vital signs: Vital Signs Temperature 97.9 F 07/08/23 12:03 Pulse Rate 65 07/08/23 12:03 Respiratory Rate 18 07/08/23 12:03 Blood Pressure 104/45 L 07/08/23 12:03 Pulse Oximetry 100 07/08/23 12:03 Oxygen Delivery Method Nasal Cannula 07/08/23 12:03 Oxygen Delivery Flow Rate 3 07/08/23 12:03 Temperature 98.5 F 07/10/23 05:36 Pulse Rate 78 07/10/23 13:59 Respiratory Rate 20 07/10/23 05:36 Blood Pressure 120/69 07/10/23 05:36 Pulse Oximetry 97 07/10/23 11:08 Oxygen Delivery Method Nasal Cannula 07/10/23 11:08 Oxygen Delivery Flow Rate 2 07/10/23 11:08 MDM - Medical Clearance Lab Data Labs: Lab Results 07/08/23 Range/Units 11:10 Blood Type A Positive Antibody Screen Negative Crossmatch See Detail Discharge Plan Discharge Chief Complaint: Medical Clearance Clinical Impression: Anemia requiring transfusions, Acute kidney injury Patient Disposition: Admitted As Inpatient Time of Disposition Decision: 13:39 Discharge Date/Time: 07/08/23 14:16
[2023-07-08] MEDS: ACETAMINOPHEN 500 MG TABLET 1000 MG PO (14:09)
[2023-07-08] MEDS: DIPHENHYDRAMINE HCL 25 MG CAPSULE PO (14:09)
--- NOTE | 2023-07-08 14:27 | PM.HP ---
H&P: HPI History of Present Illness Chief complaint: slowheartrate/abnormallabvalue,anemia,renal injury Narrative: patient is a 82-year-old male with history of myelodysplastic syndrome, chronic kidney disease stage IV, anemia of chronic disease, history of iron deficiency, history of gastrointestinal blood loss related iron deficiency, history of congestive heart failure with low ejection fraction of twenty percent, prior history of myocardial infarction who presented today from oncology clinic where he was to receive a transfusion of packed red blood cells for his chronic anemia when they noticed elevation of his renal function from baseline. patient has been receiving palliative blood transfusions which has helps for approximately 2-3 weeks before needing another. Patient is transfused one unit with a hemoglobin of <7.5 and two units if that's less than< 6.5. This has been working well for him. He has failed trials of IV iron, EPO therapy in the past. He has had one episode of delayed transfusion reaction which seemed to improve after some IV Benadryl. He is premedicated with IV Benadryl and tylenol before this transusion today. He follows with cardiology, Dr. Wall for CHF and Afib. He notes hes been feeling as good as he can for a man in his condition . No current complaints or issues. No lower ext swelling or increased SOB from baseline. Review of Systems ROS Narrative ROS: a complete review of systems were reviewed with patient and are positive as below or listed in History of Chief Complaint. General: no fever, chills, night sweats Head: no headache, trauma, visual changes, nausea or vomiting Skin: bruising and pallor Eyes: no blurriness of vision Ears: no reported hearing loss, vertigo, earache, or tinnitus Throat: no sore throat, hoarseness, swelling of neck, or tongue pain Heart: no chest pain Lungs: shortness of breath, no cough GI: no diarrhea or vomiting/nausea Urinary: no urinary urgency, frequency or pain Neuro: no numbness or tingling HEM: bruising ENDO: no thyroid problems Psych: no anxiety or depression [facility] Medical History (Updated 07/08/23 @ 14:41 by Bridgett Villafana DO) Anemia ?D64.9 - Anemia, unspecified (ICD-10) Hyperlipemia ?E78.5 - Hyperlipidemia, unspecified (ICD-10) Diabetes ?E11.9 - Type 2 diabetes mellitus without complications (ICD-10) Transfusion of blood during current hospitalisation Hypertension ?I10 - Essential (primary) hypertension (ICD-10) 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, valve unspecified (ICD-10) Anemia ?D64.9 - Anemia, unspecified (ICD-10) Surgical History History of heart artery stent ?Z95.5 - Presence of coronary angioplasty implant and graft (ICD-10) Family History Father Family history of stroke Mother Family history of stroke Family history of hypertension Family history of CHF (congestive heart failure) Brother Family history of diabetes mellitus Sister Family history of cancer Social History Within the past year, how often did you have a drink containing alcohol: never Score interpretation: A score less than 4 is consistent with normal alcohol consumption. Smoking status: Former smoker Non-prescribed substance use: denies use Previous occupational history: Retired - [employer] Highest level of school completed/degree received: high school graduate Are you now , , , , never or living with a partner: In a typical week, how many times do you talk on the telephone with family, friends, or neighbors: 3 or more times per week How often do you get together with friends or relatives: 3 or more times per week How often do you attend worship or yarsanism services: 1-3 times per year Little interest or pleasure in doing things: not at all Feeling down, depressed, or hopeless: not at all Feel stressed/tense/nervous/anxious/difficulty sleeping: not at all Life stressors: unknown source of stress Do you think of yourself as: straight/heterosexual Gender Identity: male Meds Home Medications and Allergies Home Medications Medication Instructions Recorded Confirmed Type aspirin 81 mg tablet,delayed 81 mg PO QPM 02/03/23 04/23/23 History release bumetanide 1 mg tablet 2 mg PO BID 02/03/23 04/23/23 History dapagliflozin propanediol 10 mg 10 mg PO DAILY 02/03/23 04/23/23 History tablet (Farxiga) dexamethasone 2 mg tablet 2 mg PO DAILY 02/03/23 04/23/23 History glipizide 5 mg tablet 5 mg PO QPM 02/03/23 04/23/23 History metoprolol tartrate 25 mg tablet 12.5 mg PO DAILY 02/03/23 04/23/23 History omeprazole 40 mg capsule,delayed 40 mg PO DAILY 02/03/23 04/23/23 History release potassium chloride 10 mEq 20 meq PO DAILY 02/03/23 04/23/23 History tablet,extended release (K-Tab) sennosides 8.6 mg-docusate sodium 2 tab-cap PO QPM 02/03/23 04/23/23 History 50 mg tablet (Docuzen) spironolactone 25 mg tablet 25 mg PO DAILY 02/03/23 04/23/23 History (Aldactone) terazosin 5 mg capsule 5 mg PO QPM 02/03/23 04/23/23 History atorvastatin 20 mg tablet 20 mg PO .q hs 04/23/23 04/23/23 History blood sugar diagnostic (OneTouch 04/23/23 04/23/23 History Ultra Test strips) colchicine 0.6 mg tablet 0.6 mg PO TID 04/23/23 04/23/23 History ibuprofen 600 tab PO .bid PRN pain 04/23/23 04/23/23 History lisinopril 10 mg tablet 10 mg PO DAILY 04/23/23 04/23/23 History Allergies Allergy/AdvReac Type Severity Reaction Status Date / Time bee venom protein (honey bee) Allergy Severe Verified 02/03/23 11:28 coreg Allergy Severe Uncoded 02/03/23 11:34 Exam Narrative Exam Narrative: General: Patient is alert, and oriented to person, place and time with normal affect, proper hygiene Skin: multiple ecchymosis over bilateral upper ext. Head: atraumatic, acephalic Eyes: PERRLA, no nystagmus present, conjunctiva clear, no scleral icterus Ears: normal gross auditory acuity Heart:irregular rate and rhythm, no murmurs/rubs/gallops Lungs: no audible wheezes, crackles and normal breath sounds all lung light Abdomen: Normal audible bowel sounds, no distension, No palpable masses, no organomegaly, no rebound/guarding/ or rigidity Musculoskeletal: muscle atrophy noted, ROM is limited due to being in hospital bed, no swelling bilateral lower extremities Neuro: CN II-X grossly intact Constitutional Vital Signs, click to edit/add: Last Vital Signs Temp 98.1 F 07/08/23 13:37 Pulse 67 07/08/23 13:37 Resp 16 07/08/23 13:37 BP 118/73 07/08/23 13:37 Pulse Ox 100 07/08/23 12:03 O2 Del Method Nasal Cannula 07/08/23 12:21 O2 Flow Rate 2 07/08/23 12:21 Assessment and Plan Assessment and Plan (1) Acute renal failure superimposed on stage 4 chronic kidney disease: Assessment and Plan: Hold diuretics and provide gentle fluid hydration of LR @50, will also be getting fluids with 1 unit PRBC's, Nephrology consult tomorrow. Urinalysis also Qualifiers: Acute renal failure type: unspecified Qualified Code(s): N17.9 - Acute kidney failure, unspecified; N18.4 - Chronic kidney disease, stage 4 (severe) (2) Myelodysplastic disease: Assessment and Plan: follows closely with hem/onc, gets labs weekly and palliative transfusions every 2 weeks. Gets 1 unit if less than 7.5, and 2 if less than 6.5. He will receive 1 unit for 6.8 today and reasses. 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: without usp use Diabetes mellitus type: type 2 Qualified Code(s): E11.22 - Type 2 diabetes mellitus with diabetic chronic kidney disease; N18.4 - Chronic kidney disease, stage 4 (severe) (6) Hypertension: Assessment and Plan: continue metoprolol, hold lisinopril, spirolactone Qualifiers: Hypertension type: primary hypertension Qualified Code(s): I10 - Essential (primary) hypertension (7) CHF (congestive heart failure): Assessment and Plan: hold Bumex, tele Qualifiers: Heart failure chronicity: chronic Heart failure type: systolic Qualified Code(s): I50.22 - Chronic systolic (congestive) heart failure Plan [facility] is [facility] for [facility] patient is inpatient status
[2023-07-08] MEDS: LACTATED RINGER'S SOLUTION 1,000 ML 50 ML IV (15:57)
[2023-07-08 18:00] LABS: Basophils Percent Auto 0.2 % (0.2-2.0); Hemoglobin 7.5 g/dL (14.0-18.0); Immature Granulocytes Abs Auto 0.09 10^3/uL (0.00-0.03); Lymphocytes Absolute Auto 1.2 10^3/uL (1.2-3.8); Lymphocytes Percent Auto 26.2 % (20.5-60.0); Mean Corpuscular HGB Conc 32.8 g/dL (29.9-35.2); Mean Corpuscular Hemoglobin 32.6 pg (25.9-34.0); Mean Corpuscular Volume 99.6 fL (80.0-94.0); Mean Platelet Volume 13.8 fL (9.5-13.5); Monocytes Absolute Auto 0.8 10^3/uL (0.3-0.8); Monocytes Percent Auto 18.2 % (1.7-12.0); Neutrophils Absolute Auto 2.4 10^3/uL (1.4-6.5); Neutrophils Percent Auto 53.4 % (43.0-75.0); Platelet Count 121 10^3/uL (150-450); Red Cell Distribution Width 22.6 % (11.0-15.0); White Blood Count 4.5 10^3/uL (4.0-11.0)
[2023-07-08 18:06] LABS: Hematocrit 22.9 % (42.0-54.0)
[2023-07-08] MEDS: SENNOSIDES 8.6 MG TABLET PO (21:01)
[2023-07-08] MEDS: TERAZOSIN HCL 5 MG CAPSULE PO (21:01)
[2023-07-09] VITALS (28 sets, daily range): BP systolic 93–144; BP diastolic 46–74; PULSE 41–88; RESP 16–20; TEMP 36.3–36.9; O2SAT 94–99
[2023-07-09 04:44] LABS: Basophils Percent Auto 0.4 % (0.2-2.0); Immature Granulocytes Abs Auto 0.06 10^3/uL (0.00-0.03); Immature Granulocytes Pct Auto 2.4 % (0.0-0.5); Lymphocytes Absolute Auto 0.8 10^3/uL (1.2-3.8); Lymphocytes Percent Auto 32.2 % (20.5-60.0); Mean Corpuscular HGB Conc 32.3 g/dL (29.9-35.2); Mean Corpuscular Hemoglobin 32.1 pg (25.9-34.0); Mean Corpuscular Volume 99.5 fL (80.0-94.0); Mean Platelet Volume 13.8 fL (9.5-13.5); Monocytes Absolute Auto 0.7 10^3/uL (0.3-0.8); Monocytes Percent Auto 26.5 % (1.7-12.0); Neutrophils Absolute Auto 0.9 10^3/uL (1.4-6.5); Neutrophils Percent Auto 38.5 % (43.0-75.0); Platelet Count 104 10^3/uL (150-450); Red Blood Count 1.93 10^6/uL (4.70-6.10); Red Cell Distribution Width 23.1 % (11.0-15.0); White Blood Count 2.5 10^3/uL (4.0-11.0)
[2023-07-09 04:55] LABS: Hematocrit 19.2 % (42.0-54.0); Hemoglobin 6.2 g/dL (14.0-18.0)
[2023-07-09 05:02] LABS: Uric Acid 12.2 mg/dL (3.5-7.2)
[2023-07-09 05:07] LABS: Alanine Aminotransferase 137 U/L (16-63); Albumin Globulin Ratio 0.7; Albumin Level 2.8 g/dL (3.4-5.0); Alkaline Phosphatase 109 U/L (46-116); Anion Gap 13.2; Aspartate Amino Transferase 40 U/L (15-37); BUN Creatinine Ratio 31.8; Bilirubin Total 0.7 mg/dL (0.2-1.0); Calcium 8.4 mg/dL (8.5-10.1); Carbon Dioxide 27.7 mmol/L (21.0-32.0); Chloride 104 mmol/L (98-107); Estimated GFR (African America 26 (>=60); Estimated GFR (Non-African Ame 21 (>=60); Globulin 3.9 g/dL; Glucose 146 mg/dL (74-106); Potassium 3.9 mmol/L (3.5-5.1); Sodium 141 mmol/L (136-145); Total Protein 6.7 g/dL (6.4-8.2)
[2023-07-09] MEDS: OMEPRAZOLE 40 MG CAPSULE.DR PO (05:34)
[2023-07-09] MEDS: SPIRONOLACTONE 25 MG TABLET PO (08:09)
[2023-07-09] MEDS: ATORVASTATIN CALCIUM 20 MG TABLET PO (08:10)
--- NOTE | 2023-07-09 08:52 | PM.PN ---
Progress Note: Subjective Subjective Interval history: patient resting comfortably in bed today. Denies any issues or complaints. No issues with blood transfusions so far. Discussed Telenephrology consult today and continuing transfusing. Exam Narrative Exam Narrative: General: Patient is alert, and oriented to person, place and time with normal affect, proper hygiene Skin: multiple ecchymosis over bilateral upper ext. Head: atraumatic, acephalic Eyes: PERRLA, no nystagmus present, conjunctiva clear, no scleral icterus Ears: normal gross auditory acuity Heart:irregular rate and rhythm, no murmurs/rubs/gallops Lungs: no audible wheezes, crackles and normal breath sounds all lung light Abdomen: Normal audible bowel sounds, no distension, No palpable masses, no organomegaly, no rebound/guarding/ or rigidity Musculoskeletal: muscle atrophy noted, ROM is limited due to being in hospital bed, no swelling bilateral lower extremities Neuro: CN II-X grossly intact Constitutional Vital Signs, click to edit/add: Last Vital Signs Temp 98.2 F 07/09/23 07:11 Pulse 69 07/09/23 08:00 Resp 18 07/09/23 07:11 BP 106/52 07/09/23 07:11 Pulse Ox 99 07/09/23 07:11 O2 Del Method Room Air 07/09/23 07:11 O2 Flow Rate 2 07/09/23 06:11 Progress Note: Objective Labs Labs: Short CBC 07/08/23 07/09/23 Range/Units 17:50 04:18 WBC 4.5 2.5 L (4.0-11.0) 10^3/uL Hgb 7.5 L 6.2 L* (14.0-18.0) g/dL Hct 22.9 L* 19.2 L* (42.0-54.0) % Plt Count 121 L 104 L (150-450) 10^3/uL BMP 07/09/23 04:18 Sodium 141 Potassium 3.9 Chloride 104 Carbon Dioxide 27.7 BUN 90.0 H* Creatinine 2.83 H Glucose 146 H Calcium 8.4 L Liver Function 07/09/23 Range/Units 04:18 Total Bilirubin 0.7 (0.2-1.0) mg/dL AST 40 H (15-37) U/L ALT 137 H (16-63) U/L Alkaline Phosphatase 109 (46-116) U/L Albumin 2.8 L (3.4-5.0) g/dL Progress Note: A&P Assessment and Plan (1) Acute renal failure superimposed on stage 4 chronic kidney disease: Assessment and Plan: Hold diuretics and provide gentle fluid hydration of LR @50 which seemed to improve Creatinine to 2.83, Baseline seems to be around 1.97. Stop fluids due to transfusions, Nephrology consult. Urinalysis pending. Elevated Uric Acid, started Uloric at 20mg daily to replace Colchicine. Qualifiers: Acute renal failure type: unspecified Qualified Code(s): N17.9 - Acute kidney failure, unspecified; N18.4 - Chronic kidney disease, stage 4 (severe) (2) Myelodysplastic disease: Assessment and Plan: follows closely with hem/onc, gets labs weekly and palliative transfusions every 2 weeks. Gets 1 unit if less than 7.5, and 2 if less than 6.5. He will receive 2 units for 6.2 today and reassess. 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 continue spironolactone, hold lisinopril Qualifiers: Hypertension type: primary hypertension Qualified Code(s): I10 - Essential (primary) hypertension (7) CHF (congestive heart failure): Assessment and Plan: hold bumex, seems hypovolemic, on chronic oxygen 3L at home Qualifiers: Heart failure chronicity: chronic Heart failure type: systolic Qualified Code(s): I50.22 - Chronic systolic (congestive) heart failure Plan patient is a [facility] SCD's for DVT prophylaxis patient is inpatient status
--- NOTE | 2023-07-09 10:24 | CM.NOTE ---
Rounding with Dr. Villafana. PT at patient's bedside. Dr. Villafana discussed plan of getting blood today and a teleneuro consult. Discussed improvement of labs from yesterday. Pt. states he does wear home oxygen at 2-3 liters and unsure of company but states it is in [place]. Pt. is current with [facility]. Continue to follow for any discharge needs.
--- NOTE | 2023-07-09 11:41 | CM.NOTE ---
Faxed updates to [facility], pt plans to continue care with them at discharge.
--- NOTE | 2023-07-09 13:26 | P.NEPCN_ITS ---
History of Present Illness Reason for Consult Consult date: 07/09/23 Reason for consult: acute renal failure Requesting physician: Bridgett Villafana Chief Complaint Chief complaint: slowheartrate/abnormallabvalue,anemia,renal injury History of Present Illness Narrative: Patient is [id number] male with past medical history of myelodysplastic syndrome who gets frequent blood transfusions came to the hospital after he was found to have acute kidney injury on chronic kidney disease stage III. His baseline creatinine is around 1.9. He came to hospital with creatinine of 3.6 and got IV fluid hydration and his creatinine is down to 2.8. His Bumex was placed on hold. He is still on spironolactone. He feels okay currently. Does not have any swelling. Review of Systems ROS Status of ROS 10 or more systems reviewed and unremark able except as noted in history and below [facility] Medical History (Updated 07/08/23 @ 14:41 by Bridgett Villafana DO) Anemia ?D64.9 - Anemia, unspecified (ICD-10) Hyperlipemia ?E78.5 - Hyperlipidemia, unspecified (ICD-10) Diabetes ?E11.9 - Type 2 diabetes mellitus without complications (ICD-10) Transfusion of blood during current hospitalisation Hypertension ?I10 - Essential (primary) hypertension (ICD-10) 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, valve unspecified (ICD-10) Anemia ?D64.9 - Anemia, unspecified (ICD-10) Surgical History History of heart artery stent ?Z95.5 - Presence of coronary angioplasty implant and graft (ICD-10) Family History Father Family history of stroke Mother Family history of stroke Family history of hypertension Family history of CHF (congestive heart failure) Brother Family history of diabetes mellitus Sister Family history of cancer Social History Within the past year, how often did you have a drink containing alcohol: never Score interpretation: A score less than 4 is consistent with normal alcohol consumption. 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 level of school completed/degree received: high school graduate Are you now , , , , never or living with a partner: In a typical week, how many times do you talk on the telephone with family, friends, or neighbors: 3 or more times per week How often do you get together with friends or relatives: 3 or more times per week How often do you attend uatsdin or worship services: 1-3 times per year Little interest or pleasure in doing things: not at all Feeling down, depressed, or hopeless: not at all Feel stressed/tense/nervous/anxious/difficulty sleeping: not at all Life stressors: unknown source of stress Do you think of yourself as: straight/heterosexual Gender Identity: male Meds Home Medications and Allergies Home Medications Medication Instructions Recorded Confirmed Type aspirin 81 mg tablet,delayed 81 mg PO QPM 02/03/23 07/09/23 History release bumetanide 1 mg tablet 2 mg PO QAM 02/03/23 07/09/23 History dapagliflozin propanediol 10 mg 10 mg PO DAILY 02/03/23 07/09/23 History tablet (Farxiga) omeprazole 40 mg capsule,delayed 40 mg PO DAILY 02/03/23 07/09/23 History release potassium chloride 10 mEq 20 meq PO DAILY 02/03/23 07/09/23 History tablet,extended release (K-Tab) spironolactone 25 mg tablet 25 mg PO DAILY 02/03/23 07/09/23 History (Aldactone) terazosin 5 mg capsule 5 mg PO QPM 02/03/23 07/09/23 History atorvastatin 20 mg tablet 20 mg PO QDAY 04/23/23 07/09/23 History blood sugar diagnostic (OneTouch 04/23/23 07/09/23 History Ultra Test strips) colchicine 0.6 mg tablet 0.6 mg PO TID PRN GOUT FLARE 04/23/23 07/09/23 History lisinopril 10 mg tablet 10 mg PO BID 04/23/23 07/09/23 History bumetanide 1 mg tablet 1 mg PO QPM 07/09/23 07/09/23 History cholecalciferol (vitamin D3) 25 25 mcg PO DAILY 07/09/23 07/09/23 History mcg (1,000 unit) tablet (Vitamin D3) cyclobenzaprine 5 mg tablet 5 mg PO BID PRN muscle spasm 07/09/23 07/09/23 History glipizide 5 mg tablet, extended 5 mg PO QPM 07/09/23 07/09/23 History release 24 hr (Glucotrol XL) metolazone 2.5 mg tablet 2.5 mg PO DAILY 07/09/23 07/09/23 History metoprolol succinate 25 mg 25 mg PO DAILY 07/09/23 07/09/23 History tablet,extended release 24 hr (Toprol XL) Allergies Allergy/AdvReac Type Severity Reaction Status Date / Time bee venom protein (honey bee) Allergy Severe Verified 02/03/23 11:28 coreg Allergy Severe Uncoded 02/03/23 11:34 Exam Narrative: Exam Narrative: Alert and oriented Head atraumatic and nose no bleeding Cardiovascular no edema Psychiatric not agitated Skin no obvious rash Neurological normal speech Musculoskeletal moving extremities with, once Abdomen nondistended Eyes nonicteric Constitutional: Vital Signs, click to edit/add: Last Vital Signs Temp 98.4 F 07/09/23 12:58 Pulse 43 L 07/09/23 12:58 Resp 18 07/09/23 12:58 BP 125/58 07/09/23 12:58 Pulse Ox 99 07/09/23 12:58 O2 Del Method Nasal Cannula 07/09/23 12:58 O2 Flow Rate 3 07/09/23 12:58 Results Lab Results Lab results: Most recent lab results Calcium 8.4 mg/dL (8.5-10.1) L 07/09/23 04:18 Assessment and Plan Assessment and Plan (1) Acute renal failure superimposed on stage 4 chronic kidney disease: Qualifiers: Acute renal failure type: unspecified Qualified Code(s): N17.9 - Acute kidney failure, unspecified; N18.4 - Chronic kidney disease, stage 4 (severe) (2) Myelodysplastic disease: (3) Anemia requiring transfusions: (4) Hyperlipemia: Qualifiers: Hyperlipidemia type: unspecified Qualified Code(s): E78.5 - Hyper lipidemia, unspecified (5) Diabetes: Qualifiers: Diabetes mellitus type: type 2 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 home use Diabetes mellitus complication status: with kidney complications Diabetes mellitus complication detail: with chronic kidney disease Chronic kidney disease stage: stage 4 (severe) Qualified Code(s): E11.22 - Type 2 diabetes mellitus with diabetic chronic kidney disease; N18.4 - Chronic kidney disease, stage 4 (severe) (6) Hypertension: Qualifiers: Hypertension type: primary hypertension Qualified Code(s): I10 - Essential (primary) hypertension (7) CHF (congestive heart failure): Qualifiers: Heart failure type: systolic Heart failure chronicity: chronic Qualified Code(s): I50.22 - Chronic systolic (congestive) heart failure Plan Acute kidney injury. On chronic kidney disease with baseline creatinine around 1.9. Came with creatinine of 3.6 which is coming down. We will continue to monitor creatinine for now I will start gentle IV fluid hydration Agree with blood transfusion also Hold Spironolactone and Bumex for now and will start at a lower dose later No need for any dialysis at this point Labs and previous records were reviewed and discussed with the bedside nurse Video time 5 minutes and total time in evaluation and management 32 minutes
--- NOTE | 2023-07-09 14:42 | CM.NOTE ---
Important Message From Medicare discussed with pt, pt verbalizes understanding and signs paper. Original given to pt and copy placed in pt's chart.
[2023-07-09] MEDS: 0.9 % SODIUM CHLORIDE 1,000 ML 50 ML IV (14:43)
[2023-07-09 15:44] LABS: Basophils Percent Auto 0.3 % (0.2-2.0); Hematocrit 26.5 % (42.0-54.0); Hemoglobin 8.9 g/dL (14.0-18.0); Immature Granulocytes Abs Auto 0.04 10^3/uL (0.00-0.03); Immature Granulocytes Pct Auto 1.3 % (0.0-0.5); Lymphocytes Absolute Auto 0.9 10^3/uL (1.2-3.8); Lymphocytes Percent Auto 30.4 % (20.5-60.0); Mean Corpuscular HGB Conc 33.6 g/dL (29.9-35.2); Mean Corpuscular Hemoglobin 31.9 pg (25.9-34.0); Mean Platelet Volume 13.9 fL (9.5-13.5); Monocytes Absolute Auto 0.6 10^3/uL (0.3-0.8); Neutrophils Absolute Auto 1.5 10^3/uL (1.4-6.5); Platelet Count 115 10^3/uL (150-450); Red Blood Count 2.79 10^6/uL (4.70-6.10); White Blood Count 3.1 10^3/uL (4.0-11.0)
[2023-07-09 15:46] LABS: Red Cell Distribution Width 22.3 % (11.0-15.0)
[2023-07-09] MEDS: TERAZOSIN HCL 5 MG CAPSULE PO (20:28)
[2023-07-09] MEDS: FEBUXOSTAT 40 MG TABLET 20 MG PO (21:16)
[2023-07-09] MEDS: SENNOSIDES 8.6 MG TABLET PO (21:16)
[2023-07-10] VITALS (11 sets, daily range): BP systolic 120–125; BP diastolic 65–69; PULSE 67–96; RESP 18–20; TEMP 36.9; O2SAT 95–98
[2023-07-10 04:39] LABS: Basophils Percent Auto 0.4 % (0.2-2.0); Hemoglobin 8.6 g/dL (14.0-18.0); Immature Granulocytes Abs Auto 0.09 10^3/uL (0.00-0.03); Immature Granulocytes Pct Auto 3.2 % (0.0-0.5); Lymphocytes Absolute Auto 0.8 10^3/uL (1.2-3.8); Lymphocytes Percent Auto 27.7 % (20.5-60.0); Mean Corpuscular HGB Conc 33.1 g/dL (29.9-35.2); Mean Corpuscular Hemoglobin 31.5 pg (25.9-34.0); Mean Corpuscular Volume 95.2 fL (80.0-94.0); Mean Platelet Volume 14.4 fL (9.5-13.5); Monocytes Absolute Auto 0.6 10^3/uL (0.3-0.8); Monocytes Percent Auto 22.3 % (1.7-12.0); Neutrophils Absolute Auto 1.3 10^3/uL (1.4-6.5); Neutrophils Percent Auto 46.4 % (43.0-75.0); Platelet Count 101 10^3/uL (150-450); Red Blood Count 2.73 10^6/uL (4.70-6.10); Red Cell Distribution Width 22.2 % (11.0-15.0); White Blood Count 2.8 10^3/uL (4.0-11.0)
[2023-07-10 04:54] LABS: Alanine Aminotransferase 154 U/L (16-63); Albumin Globulin Ratio 0.7; Albumin Level 2.9 g/dL (3.4-5.0); Alkaline Phosphatase 126 U/L (46-116); Anion Gap 15.4; Aspartate Amino Transferase 46 U/L (15-37); Calcium 8.1 mg/dL (8.5-10.1); Carbon Dioxide 27.9 mmol/L (21.0-32.0); Chloride 106 mmol/L (98-107); Estimated GFR (African America 40 (>=60); Estimated GFR (Non-African Ame 33 (>=60); Glucose 148 mg/dL (74-106); Potassium 4.3 mmol/L (3.5-5.1); Sodium 145 mmol/L (136-145); Total Protein 6.9 g/dL (6.4-8.2)
[2023-07-10] MEDS: OMEPRAZOLE 40 MG CAPSULE.DR PO (05:40)
--- NOTE | 2023-07-10 08:23 | P.DS_ITS ---
DS: Providers Provider Date of admission: 07/08/23 13:36 Primary care physician: JACQUELIN HERNANDES Admitting clinician: Bridgett Villafana Consults: 07/08/23 13:44 Occupational Therapy Eval and Treat Routine Reason for consultation: weakness Has provider been notified: No Physical Therapy Eval and Treat Routine Reason for consultation: weakness Has provider been notified: No 07/08/23 14:27 Consult to Telenephrology Routine Reason for consultation: Acute on Chronic renal failure, history of CHF and myelodysplastic syndrome Has provider been notified: No Discharging clinician: Bridgett Villafana DS: Diagnosis Discharge Diagnosis (1) Acute renal failure superimposed on stage 4 chronic kidney disease: Qualifiers: Acute renal failure type: unspecified Qualified Code(s): N17.9 - Acute kidney failure, unspecified; N18.4 - Chronic kidney disease, stage 4 (severe) (2) Myelodysplastic disease: (3) Anemia requiring transfusions: (4) Hyperlipemia: Qualifiers: Hyperlipidemia type: unspecified Qualified Code(s): E78.5 - Hyperlipidemia, unspecified (5) Diabetes: Qualifiers: Chronic kidney disease stage: stage 4 (severe) Diabetes mellitus complication detail: with chronic kidney disease Diabetes mellitus complication status: with kidney complications Diabetes mellitus skilled nursing insulin use: without intermediate card tender use Diabetes mellitus type: type 2 Qualified Code(s): E11.22 - Type 2 diabetes mellitus with diabetic chronic kidney disease; N18.4 - Chronic kidney disease, stage 4 (severe) (6) Hypertension: Qualifiers: Hypertension type: primary hypertension Qualified Code(s): I10 - Essential (primary) hypertension (7) CHF (congestive heart failure): Qualifiers: Heart failure chronicity: chronic Heart failure type: systolic Qualified Code(s): I50.22 - Chronic systolic (congestive) heart failure DS: Summary Hospital Course Hospital Course: patient is a 82-year-old male with history of myelodysplastic syndrome, chronic kidney disease stage IV, anemia of chronic disease, history of iron deficiency, history of gastrointestinal blood loss related iron deficiency, history of congestive heart failure with low ejection fraction of twenty percent, prior history of myocardial infarction who presented today from oncology clinic where he was to receive a transfusion of packed red blood cells for his chronic anemia when they noticed elevation of his renal function from baseline. Cr. was 3.56 and BUN 103. Held diuretics and provide gentle fluid hydration of NS @50. Nephrology consult and made adjustments to home meds. I added Uloric 20mg for hyperuricemia but increased to 40mg daily. Will stop metolazone, stop potassium, decrease lisinopril to 2.5mg daily, continue spironolactone 25mg daily and decrease Bumex to 1mg daily. All other medications will remain the same. Patient received a total of 3 units of PRBC's and discharge hemoglobin is 8.6. He will be discharged home with close follow up with PCP, Oncology, and cardiology. He will need cbc, bmp and uric acid in the next 1 week. Close monitoring of BP and fluid status is imperative since a few medication changes have occurred. he is to return to the ER with any worsening signs or symptoms. Status at Discharge Functional status at discharge: uses cane/walker Overall status at discharge: patient is back to baseline Time Spent with Patient Time attestation: Total time spent providing and/or coordinating discharge services: Time spent: greater than 30 minutes Exam Narrative Exam Narrative: General: Patient is alert, and oriented to person, place and time with normal affect, proper hygiene Skin: multiple ecchymosis over bilateral upper ext. Head: atraumatic, acephalic Eyes: PERRLA, no nystagmus present, conjunctiva clear, no scleral icterus Ears: normal gross auditory acuity Heart:irregular rate and rhythm, no murmurs/rubs/gallops Lungs: no audible wheezes, crackles and normal breath sounds all lung light Abdomen: Normal audible bowel sounds, no distension, No palpable masses, no organomegaly, no rebound/guarding/ or rigidity Musculoskeletal: muscle atrophy noted, ROM is limited due to being in hospital bed, no swelling bilateral lower extremities Neuro: CN II-X grossly intact Constitutional Vital Signs, click to edit/add: Last Vital Signs Temp 98.5 F 07/10/23 05:36 Pulse 91 H 07/10/23 08:01 Resp 20 07/10/23 05:36 BP 120/69 07/10/23 05:36 Pulse Ox 98 07/10/23 05:36 O2 Del Method Nasal Cannula 07/10/23 05:36 O2 Flow Rate 2 07/10/23 05:36 DS: Data Data Completed and Pending Labs on day of discharge: Labs from last 24 hours 07/10/23 07/09/23 07/08/23 04:14 15:35 11:10 WBC 2.8 L 3.1 L RBC 2.73 L 2.79 L Hgb 8.6 L 8.9 L Hct 26.0 L 26.5 L MCV 95.2 H 95.0 H MCH 31.5 31.9 MCHC 33.1 33.6 RDW 22.2 H 22.3 H Plt Count 101 L 115 L MPV 14.4 H 13.9 H Neut % (Auto) 46.4 50.0 Lymph % (Auto) 27.7 30.4 [place] % (Auto) 22.3 H 18.0 H Eos % (Auto) 0.0 L 0.0 L Baso % (Auto) 0.4 0.3 Neut # (Auto) 1.3 L 1.5 Lymph # (Auto) 0.8 L 0.9 L [place] # (Auto) 0.6 0.6 Eos # (Auto) 0.0 0.0 Baso # (Auto) 0.0 0.0 Abs Immat Gran (auto) 0.09 H 0.04 H Imm/Tot Granulo (auto) 3.2 H 1.3 H Sodium 145 Potassium 4.3 Chloride 106 Carbon Dioxide 27.9 Anion Gap 15.4 BUN 61.0 H Creatinine 1.97 H Est GFR ( Amer) 40 L Est GFR (Non-Af Amer) 33 L BUN/Creatinine Ratio 31.0 Glucose 148 H Calcium 8.1 L Total Bilirubin 1.0 AST 46 H ALT 154 H Alkaline Phosphatase 126 H Total Protein 6.9 Albumin 2.9 L Globulin 4.0 Albumin/Globulin Ratio 0.7 Blood Type A Positive Antibody Screen Negative Crossmatch See Detail Discharge Plan Discharge Disposition: Home Health Service Discharge Medications: New lisinopril 2.5 mg tablet 2.5 mg PO DAILY 30 Days Qty: 30 0RF febuxostat 40 mg Tablet 40 mg PO DAILY 30 Days Qty: 30 0RF Continued Farxiga 10 mg tablet 10 mg PO DAILY omeprazole 40 mg capsule,delayed release(DR/EC) 40 mg PO DAILY spironolactone [Aldactone] 25 mg tablet 25 mg PO DAILY terazosin 5 mg capsule 5 mg PO QPM aspirin 81 mg tablet,delayed release (DR/EC) 81 mg PO QPM atorvastatin 20 mg tablet 20 mg PO QDAY glipizide [Glucotrol XL] 5 mg tablet extended release 24hr 5 mg PO QPM metoprolol succinate [Toprol XL] 25 mg tablet extended release 24 hr 25 mg PO DAILY cyclobenzaprine 5 mg tablet 5 mg PO BID PRN (Reason: muscle spasm) cholecalciferol (vitamin D3) [Vitamin D3] 25 mcg (1,000 unit) tablet 25 mcg PO DAILY Changed bumetanide 1 mg tablet 1 mg PO QAM Qty: 0 0RF Discontinued potassium chloride [K-Tab] 10 mEq tablet extended release 20 meq PO DAILY colchicine 0.6 mg tablet 0.6 mg PO TID PRN (Reason: GOUT FLARE) lisinopril 10 mg tablet 10 mg PO BID bumetanide 1 mg tablet 1 mg PO QPM metolazone 2.5 mg tablet 2.5 mg PO DAILY No Action (DME) OneTouch Ultra Test Strip MISCELLANEOUS Activity: ambulate only with your walker and wear oxygen at all times Diet: advance to your usual diet Forms: Portal Instructions Follow Up Appointments: - @ 1:40pm with Dr. Hernandes [phone] - as scheduled with Dr. Machado -1-2 weeks with Cardiology Discharge location: Home with [facility]
[2023-07-10] MEDS: ATORVASTATIN CALCIUM 20 MG TABLET PO (09:35)
[2023-07-10] MEDS: 0.9 % SODIUM CHLORIDE 1,000 ML 50 ML IV (09:35)
--- NOTE | 2023-07-10 10:41 | CM.NOTE ---
Rounds made with Dr. Villafana, okay to discharge to home today with [facility] services. Pt also has home oxygen set-up.
--- NOTE | 2023-07-10 13:13 | P.NEPPN_ITS ---
Progress Note: A&P Assessment and Plan (1) Acute renal failure superimposed on stage 4 chronic kidney disease: Qualifiers: Acute renal failure type: unspecified Qualified Code(s): N17.9 - Acute kidney failure, unspecified; N18.4 - Chronic kidney disease, stage 4 (severe) (2) Myelodysplastic disease: (3) Anemia requiring transfusions: (4) Hyperlipemia: Qualifiers: Hyperlipidemia type: unspecified Qualified Code(s): E78.5 - Hyperlipidemia, unspecified (5) Diabetes: Qualifiers: Diabetes mellitus type: type 2 Diabetes mellitus termite technician insulin use: without termite technician use Diabetes mellitus complication status: with kidney complications Diabetes mellitus complication detail: with chronic kidney disease Chronic kidney disease stage: stage 4 (severe) Qualified Code(s): E11.22 - Type 2 diabetes mellitus with diabetic chronic kidney disease; N18.4 - Chronic kidney disease, stage 4 (severe) (6) Hypertension: Qualifiers: Hypertension type: primary hypertension Qualified Code(s): I10 - Essential (primary) hypertension (7) CHF (congestive heart failure): Qualifiers: Heart failure type: systolic Heart failure chronicity: chronic Qualified Code(s): I50.22 - Chronic systolic (congestive) heart failure Plan Acute kidney injury. Likely related to prerenal azotemia from over diuresis He is okay to discharge now as his kidney function is back to baseline. Follow-up with prepared foods service team member in the clinic in about 2 weeks with labs Change Bumex to 1 mg daily in the morning Discontinue metolazone Discontinue potassium tablets start him on Uloric 40 mg daily for his hyperuricemia Change lisinopril to 2.5 mg daily Continue Spironolactone 25 mg daily. He got spironolactone here also yesterday Discontinue IV fluids Discussed with the bedside nurse Labs and previous records reviewed video time 5 minutes and total time in evaluation and management 22 minutes Subjective Subjective Principal diagnosis: ARMANDO Interval history: patient resting comfortably in bed today. Denies any issues or complaints. Exam Narrative: Exam Narrative: Awake and alert No headTrauma Cardiovascular no edema Abdomen nondistended Normal speech No skin rash Not agitated Constitutional: Vital Signs, click to edit/add: Last Vital Signs Temp 98.5 F 07/10/23 05:36 Pulse 83 07/10/23 12:16 Resp 20 07/10/23 05:36 BP 120/69 07/10/23 05:36 Pulse Ox 97 07/10/23 11:08 O2 Del Method Nasal Cannula 07/10/23 11:08 O2 Flow Rate 2 07/10/23 11:08
--- NOTE | 2023-07-10 13:22 | CM.NOTE ---
Sent discharge summary, CRF, and med list to [facility] for services.
--- NOTE | 2023-07-11 13:35 | CM.DCFOLLOWU ---
First discharge follow up call attempted today with no answer. Unable to reach patient at this time.
--- NOTE | 2023-07-14 15:41 | CM.DCFOLLOWU ---
Person spoke with: patient and How are you feeling? he is feeling really good How is your pain? none Did you understand your discharge instructions? yes Do you have any questions about your discharge instructions? no Were you given any prescriptions at discharge? yes Were you able to get your prescriptions filled? yes Do you understand how to take your medications as ordered? yes Do you have any questions about your follow up appointment and do you plan to keep your follow up appointment? Dr. Barton 07/15, plans on keeping the appointment. Is there anything else that you would like to discuss? Discussed a nose bleed yesterday and has stopped now with medication Dr. Pearl had prescribed in the past, a nasal spray, per . Discussed the importance of reviewing this with Dr. Barton and if they need help, they can always call home health and they should have someone signal person. voiced understanding and states he is ok now . Questions/Comments/Concerns/Other: n/a
== END 2023-07-10 15:18 | disposition home health service (06) | DRG 683 ==
LOC: ER 13:39 → MS 13:45
PROVIDERS: Admitting Provider Family Medicine; Emergency Provider Emergency Medicine; PCP Family Medicine; Visit Provider Family Medicine
DX: N17.9 Acute kidney failure, unspecified (principal); C94.6 Myelodysplastic disease, not elsewhere classified; I13.0 Hypertensive heart and chronic kidney disease with heart failure and stage 1 through stage 4 chronic kidney disease, or unspecified chronic kidney disease; I50.22 Chronic systolic (congestive) heart failure; E11.22 Type 2 diabetes mellitus with diabetic chronic kidney disease; N18.4 Chronic kidney disease, stage 4 (severe); E78.5 Hyperlipidemia, unspecified; D64.9 Anemia, unspecified; R53.82 Chronic fatigue, unspecified; I48.91 Unspecified atrial fibrillation; Z66 Do not resuscitate; Z79.82 Long term (current) use of aspirin; Z79.899 Other long term (current) drug therapy; Z87.891 Personal history of nicotine dependence; Z95.5 Presence of coronary angioplasty implant and graft; Z99.81 Dependence on supplemental oxygen; I25.2 Old myocardial infarction
CPT/HCPCS: 36415; 36430; 71045; 80048; 80053; 81001; 84550; 85025; 86850; 86900; 86901; 93005; 94761; 97163; 97165; 99285; G0463; P9016; Q3014

== ENCOUNTER 2023-07-17 15:30 | Outpatient (OUT) | payer MEDICARE, SELFPAY ==
--- OUTSIDE RECORDS SUMMARY | 2023-07-17 15:42 | XMS_ITS | CCD ---
Author Name Unknown Address [address] [place] [address] Organization [facility] Care Team Providers Care Computer Peripheral Equipment Operator Name Role Phone MYLENE ANDREW Unavailable Unavailable Flash Pearl Unavailable Unavailable Evette Sheriff Unavailable Unavailable Flash Pearl Unavailable Unavailable MYLENE ANDREW Unavailable Unavailable Flash Pearl Unavailable Unavailable Evette Sheriff Unavailable Unavailable Flash Pearl Unavailable Unavailable Flash Pearl Primary Care Provider Flash Pearl MD Primary Care Provider Sheng Gomez MD Unavailable [phone] Estephanie SEN, Asher Unavailable Michelle SOURCING INTERN.RAMONA, Wilfred Unavailable Anh HEALY, Angle Unavailable KELSEY RAMIREZ Admitting Unavailable SELF, REFERRED Referring Unavailable FLASH PEARL Primary Care Unavailable LUIS RUIZ Attending Unavailable Flash Pearl MD Primary Care Provider Sheng Gomez MD Unavailable Estephanie SEN, Asher Unavailable [phone] Michelle SOURCING INTERN.RAMONA, Wilfred Unavailable Anh HEALY, Angle Unavailable [phone] Flash Pearl MD Primary Care Provider Estephanie SEN, Asher Unavailable [phone] Anh HEALY, Angle Unavailable [phone] Flash Pearl MD Primary Care Provider Flash Pearl MD Primary Care Provider [phone] Sheng Gomez MD Unavailable Estephanie SEN, Asher Unavailable Michelle SOURCING INTERN.Wilfred GREENE Unavailable Anh HEALY, Angle Unavailable [phone] MISC, DR SORIA Attending Unavailable MISC, DR SORIA Admitting Unavailable REQUEST, DR NONE LISTED Primary Care Unavaila ble MISC, DR SORIA Attending Unavailable PEARL ., DR FLASH Holden Primary Care Unavailable MISC, DR SORIA Admitting Unavailable MISC, DR SORIA Consulting Unavailable HYMARY JO, ASHER Consulting Unavailable FLAKITA ., MARICRUZ Attending Unavailable FLAKITA ., MARICRUZ Admitting Unavailable PEARL ., DR FLASH Holden Procedure Practitioner Unavai lable REQUEST, DR NONE LISTED Primary Care Unavaila ble PEARL ., DR FLASH Holden Consulting Unavailable ROSE BUD, DR JOSIE Rowe Consulting Unavailable ZIEBER, DR OUMOU Butts Consulting Unavailable PAY ., DR MEDINA Consulting Unavailable SORENSON, NAYANA Consulting Unavailable FLAKITA ., MARICRUZ Consulting Unavailable LORI, DR RADHA Collado Attending Unavailable LORI, DR RADHA Collado Admitting Unavailable REQUEST, NONE LISTED Primary Care Unavaila ble MISC, DR SORIA Consulting Unavailable LORI, DR RADHA Collado Consulting Unavailable ABHYAFUAAR, ASHER Consulting Unavailable MICHELLE, DR WILFRED Collado Attending Unavailable MICHELLE, DR WILFRED Collado Admitting Unavailable PEARL ., DR FLASH Holden Primary Care Unavailable MICHELLE, DR WILFRED Collado Consulting Unavailable PEARL ., DR FLASH Holden Consulting Unavailable PEARL ., DR FLASH Holden Attending Unavailable PEARL ., DR FLASH Holden Admitting Unavailable PEARL ., DR FLASH Holden Primary Care Unavailable LORI, DR RADHA Collado Attending Unavailable LORI, DR RADHA Collado Admitting Unavailable PEARL ., DR FLASH Holden Primary Care Unavailable VAISHALI, DR SORIA Consulting Unavailable LORI, DR RADHA Collado Consulting Unavailable ABHYMARY JO, ASHER Consulting Unavailable PEARL ., DR FLASH Holden Consulting Unavailable PEARL ., DR FLASH Holden Attending Unavailable PEARL ., DR FLASH Holden Admitting Unavailable PEARL ., DR FLASH Holden Primary Care Unavailable MISC, DR SORIA Admitting Unavailable PEARL ., DR FLSAH Holden Primary Care Unavailable MISC, DR SORIA Attending Unavailable MISC, DR SORIA Consulting Unavailable ABHYANKAR, ASHER Consulting Unavailable REQUEST, DR NONE LISTED Primary Care Unavaila ble ABAZA, DR GARZA Consulting Unavailable MISC, DR SORIA Admitting Unavailable MISC, DOCTOR Attending Unavailable ABHYANKAR, ASHER Consulting Unavailable ABHYANKAR, ASHER Attending Unavailable ABHYANKAR, ASHER Admitting Unavailable REQUEST, DR NONE LISTED Primary Care Unavaila ble ABHYANKAR, ASHER Consulting Unavailable MISC, DR SORIA Attending Unavailable MISC, DR SORIA Admitting Unavailable MISC, DR SORIA Consulting Unavailable PEARL ., DR FLASH Holden Primary Care Unavailable MISC, DR SORIA Attending Unavailable REQUEST, DR NONE LISTED Primary Care Unavaila ble MISC, DR SORIA Admitting Unavailable MISC, DR SORIA Consulting Unavailable ABHYANKAR, ASHER Consulting Unavailable MISC, DR SORIA Attending Unavailable PEARL ., DR FLASH Holden Primary Care Unavailable MISC, DR SORIA Consulting Unavailable MISC, DR SORIA Admitting Unavailable MICHELLE, DR WILFRED Collado Consulting Unavailable ABHYANKAR, ASHER Consulting Unavailable ABHYANKAR, ASHER Attending Unavailable ABHYANKAR, ASHER Admitting Unavailable REQUEST, DR NONE LISTED Primary Care Unavaila ble MISC, DR SORIA Attending Unavailable PEARL ., DR FLASH Holden Primary Care Unavailable MISC, DR SORIA Admitting Unavailable MISC, DR SORIA Consulting Unavailable ABHYANKAR, ASHER Consulting Unavailable PEARL ., DR FLASH Holden Consulting Unavailable PEARL ., DR FLASH Holden Attending Unavailable PEARL ., DR FLASH Holden Admitting Unavailable PEARL ., DR FLASH Holden Primary Care Unavailable MISC, DR SORIA Attending Unavailable PEARL ., DR FLASH Holden Primary Care Unavailable MISC, DR SORIA Consulting Unavailable MISC, DR SORIA Admitting Unavailable LORI, DR RADHA Collado Consulting Unavailable MICHELLE, DR WILFRED Collado Consulting Unavailable ABHYANKAR, ASHER Consulting Unavailable MISC, DR SORIA Attending Unavailable MISC, DR SORIA Admitting Unavailable REQUEST, DR NONE LISTED Primary Care Unavaila ble MISC, DR SORIA Consulting Unavailable ABHYANKAR, ASHER Consulting Unavailable ABHYANKAR, ASHER Referring Unavailable PEARL, FLASH BURR Primary Care Unavailable ABHYANKAR, ASHER Referring Unavailable PEARL, FLASH BURR Primary Care Unavailable ABHYANKAR, ASHER Attending Unavailable ABHYANKAR, ASHER Referring Unavailable PEARL, FLASH BURR Primary Care Unavailable MICHELLEWILFRED Referring Unavailable PEARL, FLASH EDWARD Primary Care Unavailable ABHYANKAR, ASHER Referring Unavailable PEARL, FLASH EDWARD Primary Care Unavailable WILFRED MARTINEZ Referring Unavailable PEARL, FLASH EDWARD Primary Care Unavailable RADHA SANDOVAL Attending Unavailable PEARL, FLASH EDWARD Primary Care Unavailable ABHYANKAR, ASHER Referring Unavailable PEARL, FLASH EDWARD Primary Care Unavailable ABHYANKAR, ASHER Attending Unavailable WILFRED MARTINEZ Referring Unavailable PEARL, FLASH EDWARD Primary Care Unavailable PEARL, FLASH EDWARD Referring Unavailable PEARL, FLASH EDWARD Primary Care Unavailable ABHYANKAR, ASHER Referring Unavailable PEARL, FLASH EDWARD Primary Care Unavailable ABHYANKAR, ASHER Referring Unavailable PEARL, FLASH EDWARD Primary Care Unavailable ELYSIA ESPOSITO Attending Unavailable PEARL, FLASH EDWARD Primary Care Unavailable PEARL, FLASH EDWARD Primary Care Unavailable ABHYANKAR, ASHER Referring Unavailable PEARL, FLASH EDWARD Primary Care Unavailable PEARL, FLASH EDWARD Primary Care Unavailable ABDIANNAAR, ASHER Attending Unavailable WILFRED MARTINEZ Referring Unavailable PEARL, FLASH EDWARD Primary Care Unavailable PEARL, FLASH EDWARD Primary Care Unavailable WILFRED MARTINEZ Referring Unavailable ABHYANKAR, ASHER Referring Unavailable PEARL, FLASH EDWARD Primary Care Unavailable WILFRED MARTINEZ Referring Unavailable PEARL, FLASH EDWARD Primary Care Unavailable ABHYANKAR, ASHER Referring Unavailable PEARL, FLASH EDWARD Primary Care Unavailable ABHYANKAR, ASHER Referring Unavailable PEARL, FLASH EDWARD Primary Care Unavailable WILFRED MARTINEZ Referring Unavailable PEARL, FLASH EDWARD Primary Care Unavailable ABHYANKAR, ASHER Attending Unavailable ABHYANKAR, ASHER Referring Unavailable PEARL, FLASH EDWARD Primary Care Unavailable ABHYANKAR, ASHER Referring Unavailable PEARL, FLASH EDWARD Primary Care Unavailable ABHYANKAR, ASHER Referring Unavailable RADHA SANDOVAL Attending Unavailable PEARL, FLASH EDWARD Primary Care Unavailable WILFRED MARTINEZ Referring Unavailable PEARL, FLASH EDWARD Primary Care Unavailable ABHYANKAR, ASHER Referring Unavailable ELYSIA ESPOSITO Attending Unavailable PEARL, FLASH EDWARD Primary Care Unavailable ABHYANKAR, ASHER Referring Unavailable PEARL, FLASH EDWARD Primary Care Unavailable WILFRED MARTINEZ Referring Unavailable PEARL, FLASH EDWARD Primary Care Unavailable RADHA SANDOVAL Attending Unavailable PEARL, FLASH EDWARD Primary Care Unavailable ABHYANKAR, ASHER Referring Unavailable PEARLFLASH PAZ EDWARD Primary Care Unavailable FLASH PEARL EDWARD Primary Care Unavailable FLASH PEARL EDWARD Primary Care Unavailable PEARL, FLASH EDWARD Primary Care Unavailable PEARL, FLASH EDWARD Primary Care Unavailable ELYSIA ESPOSITO Attending Unavailable ABHYANKAR, ASHER Referring Unavailable PEARLFLASH PAZ EDWARD Primary Care Unavailable ABHYANKAR, ASHER Attending Unavailable WILFRED MARTINEZ Referring Unavailable FLASH PEARL EDWARD Primary Care Unavailable PEARL, FLASH EDWARD Primary Care Unavailable RYANNE, FLASH EDWARD Primary Care Unavailable PEARL, FLASH EDWARD Primary Care Unavailable RYANNE, FLASH EDWARD Primary Care Unavailable RYANNE, FLASH EDWARD Primary Care Unavailable ABHYANKAR, ASHER Referring Unavailable PEARL, FLASH EDWARD Primary Care Unavailable ABHYANKAR, ASHER Referring Unavailable ABHYANKAR, ASHER Attending Unavailable ABHYANKAR, ASHER Referring Unavailable FLASH PEARL EDWARD Primary Care Unavailable WILFRED MARTINEZ Referring Unavailable FLASH PEARL EDWARD Primary Care Unavailable ABHYANKAR, ASHER Referring Unavailable FLASH PEARL EDWARD Primary Care Unavailable ABHYANKAR, ASHER Referring Unavailable FLASH PEARL EDWARD Primary Care Unavailable ABHYANKAR, ASHER Referring Unavailable RADHA SANDOVAL Attending Unavailable FLASH PEARL EDWARD Primary Care Unavailable RYANNE, FLASH EDWARD Primary Care Unavailable WILFRED MARTINEZ Referring Unavailable FLASH PEARL EDWARD Primary Care Unavailable ABHYANKAR, ASHER Referring Unavailable FLASH PEARL EDWARD Primary Care Unavailable ABHYANKAR, ASHER Referring Unavailable FLASH PEARL EDWARD Primary Care Unavailable ABHYANKAR, ASHER Referring Unavailable FLASH PEARL EDWARD Primary Care Unavailable RYANNE, FLASH EDWARD Primary Care Unavailable ABHYANKAR, ASHER Referring Unavailable PEARLFLASH PAZ EDWARD Primary Care Unavailable ABHYANKAR, ASHER Referring Unavailable FLASH PEARL EDWARD Primary Care Unavailable ABHYANKAR, ASHER Referring Unavailable RYANNE, FLASH EDWARD Primary Care Unavailable ABHYANKAR, ASHER Referring Unavailable RYANNE, FLASH EDWARD Primary Care Unavailable ABHYANKAR, ASHER Referring Unavailable RYANNE, FLASH EDWARD Primary Care Unavailable ABHYANKAR, ASHER Referring Unavailable FLASH PEARL EDWARD Primary Care Unavailable WILFRED MARTINEZ Referring Unavailable RYANNE, FLASH EDWARD Primary Care Unavailable ABHYANKAR, ASHER Referring Unavailable PEARL, FLASH EDWARD Primary Care Unavailable ABHYANKAR, ASHER Referring Unavailable PEARL, FLASH EDWARD Primary Care Unavailable JAVAD EDMONDSON Referring Unavailable PEARL, FLASH EDWARD Primary Care Unavailable ABHYANKAR, ASHER Referring Unavailable PEARL, FLASH EDWARD Primary Care Unavailable ABHYANKAR, ASHER Referring Unavailable PEARL, FLASH EDWARD Primary Care Unavailable ABHYANKAR, ASHER Referring Unavailable PEARL, FLASH EDWARD Primary Care Unavailable ABHYANKAR, ASHER Referring Unavailable PEARL, FLASH EDWARD Primary Care Unavailable WILFRED MARTINEZ Attending Unavailable WILFRED MARTINEZ Referring Unavailable PEARL, FLASH EDWARD Primary Care Unavailable PEARL, FLASH EDWARD Primary Care Unavailable ABHYANKAR, ASHER Referring Unavailable PEARL, FLASH EDWARD Primary Care Unavailable ABHYANKAR, ASHER Referring Unavailable PEARL, FLASH EDWARD Primary Care Unavailable ABHYAFUAAR, ASHER Attending Unavailable WILFRED MARTINEZ Referring Unavailable PEARL, FLASH EDWARD Primary Care Unavailable ABHYAFUAAR, ASHER Attending Unavailable WILFRED MARTINEZ Referring Unavailable PEARL, FLASH EDWARD Primary Care Unavailable ABHYANKAR, ASHER Referring Unavailable PEARL, FLASH EDWARD Primary Care Unavailable ABHYANKAR, ASHER Referring Unavailable PEARL, FLASH EDWARD Primary Care Unavailable ABHYANKAR, ASHER Referring Unavailable PEARL, FLASH EDWARD Primary Care Unavailable WILFRED MARTINEZ Referring Unavailable PEARL, FLASH EDWARD Primary Care Unavailable RADHA SANDOVAL Attending Unavailable PEARL, FLASH EDWARD Primary Care Unavailable PEARL, FLASH EDWARD Primary Care Unavailable ABHYANKAR, ASHER Referring Unavailable PEARL, FLASH EDWARD Primary Care Unavailable ABHYANKAR, ASEHR Referring Unavailable ABHYANKAR, ASHER Referring Unavailable PEARL, FLASH EDWARD Primary Care Unavailable PEARL, FLASH EDWARD Primary Care Unavailable ABHYANKAR, ASHER Referring Unavailable PEARL, FLASH EDWARD Primary Care Unavailable ABHYAFUAAR, ASHER Attending Unavailable WILFRED MARTINEZ Referring Unavailable PEARL, FLASH EDWARD Primary Care Unavailable PEARL, FLASH EDWARD Primary Care Unavailable PEARL, FLASH EDWARD Primary Care Unavailable ABHYANKAR, ASHER Referring Unavailable PEARL, FLASH EDWARD Primary Care Unavailable ABHYAFUAAR, ASHER Attending Unavailable WILFRED MARTINEZ Referring Unavailable PEARL, FLASH EDWARD Primary Care Unavailable PEARL, FLASH EDWARD Primary Care Unavailable PEARL, FLASH EDWARD Primary Care Unavailable ELYSIA ESPOSITO Attending Unavailable PEARL, FLASH EDWARD Primary Care Unavailable PEARL, FLASH EDWARD Primary Care Unavailable CATE, ELYSIA S Referring Unavailable CATEELYSIA CHEEMA S Attending Unavailable ABHYANKAR, ASHER Referring Unavailable PEARL, FLASH EDWARD Primary Care Unavailable ABHYANKAR, ASHER Referring Unavailable PEARL, FLASH EDWARD Primary Care Unavailable WILFRED MARTINEZ Attending Unavailable WILFRED MARTINEZ Referring Unavailable PEARL, FLASH EDWARD Primary Care Unavailable PEARL, FLASH EDWARD Primary Care Unavailable ABHYANKAR, ASHER Referring Unavailable PEARL, FLASH EDWARD Primary Care Unavailable ABHYANKAR, ASHER Attending Unavailable WILFRED MARTINEZ Referring Unavailable PEARL, FLASH EDWARD Primary Care Unavailable PEARL, FLASH EDWARD Primary Care Unavailable ABHYANKAR, ASHER Referring Unavailable PEARL, FLASH EDWARD Primary Care Unavailable ABHYANKAR, ASHER Attending Unavailable WILFRED MARTINEZ Referring Unavailable PEARL, FLASH EDWARD Primary Care Unavailable PEARL, FLASH EDWARD Primary Care Unavailable ABHYANKAR, SUNDEEP M Referring Unavailable PEARL, FLASH EDWARD Primary Care Unavailable ABHYANKAR, ASHER Referring Unavailable PEARL, FLASH EDWARD Primary Care Unavailable PEARL, FLASH EDWARD Primary Care Unavailable PEARL, FLASH EDWARD Primary Care Unavailable ABHYANKAR, ASHER Referring Unavailable ABHYANKAR, ASHER Attending Unavailable PEARL, FLASH EDWARD Primary Care Unavailable ABHYANKAR, ASHER Referring Unavailable WILFRED MARTINEZ Referring Unavailable PEARL, FLASH EDSAGE Primary Care Unavailable PEARL, FLASH EDSAGE Primary Care Unavailable ABHYANKAR, ASHER Referring Unavailable ABHYANKAR, ASHER Attending Unavailable PEARL, FLASH EDWARD Primary Care Unavailable ABHYANKAR, ASHER Referring Unavailable ABHYANKAR, ASHER Referring Unavailable PEARL, FLASH EDWARD Primary Care Unavailable PEARL, FLASH EDWARD Primary Care Unavailable ABHYANKAR, ASHER Referring Unavailable ABHYANKAR, ASHER Attending Unavailable WILFRED MARTINEZ Referring Unavailable PEARL, FLASH EDWARD Primary Care Unavailable ABHYANKAR, ASHER Referring Unavailable PEARL, FLASH EDWARD Primary Care Unavailable WILFRED MARTINEZ Referring Unavailable PEARL, FLASH EDWARD Primary Care Unavailable WILFRED MARTINEZ Referring Unavailable PEARL, FLASH EDWARD Primary Care Unavailable ABHYANKAR, ASHER Attending Unavailable WILFRED MARTINEZ Referring Unavailable PEARL, FLASH EDWARD Primary Care Unavailable PEARL, FLASH EDWARD Primary Care Unavailable ABHYANKAR, ASHER Referring Unavailable PEARL, FLASH EDWARD Primary Care Unavailable ABHYANKAR, ASHER Attending Unavailable ABHYANKAR, ASHER Referring Unavailable PEARL, FLASH EDWARD Primary Care Unavailable MICHELLE, WILFRED Referring Unavailable PEARL, FLASH EDWARD Primary Care Unavailable ABHYANKAR, ASHER Referring Unavailable PEARL, FLASH EDWARD Primary Care Unavailable WILFRED MARTINEZ Attending Unavailable WILFRED MARTINEZ Referring Unavailable PEARL, FLASH EDWARD Primary Care Unavailable PEARL, FLASH EDWARD Primary Care Unavailable ABHYANKAR, ASHER Referring Unavailable WILFRED MARTINEZ Attending Unavailable WILFRED MARTINEZ Referring Unavailable PEARL, FLASH EDWARD Primary Care Unavailable PEARL, FLASH EDWARD Primary Care Unavailable MICHELLE, WILFRED Referring Unavailable PEARL, FLASH EDWARD Primary Care Unavailable MICHELLE, WILFRED Referring Unavailable ABHYANKAR, ASHER Referring Unavailable PEARL, FLASH EDWARD Primary Care Unavailable ABHYANKAR, ASHER Referring Unavailable PEARL, FLASH EDWARD Primary Care Unavailable WILFRED MARTINEZ Referring Unavailable PEARL, FLASH EDWARD Primary Care Unavailable Álvaro Barton Primary Care Physician [phone] SHENG GOMEZ Attending Unavailable SHENG GOMEZ Attending Unavailable Jasper MARIE Attending Unavailable Earl, EDUCATION TEACHER Malinda L Admitting Unavailable Earl, EDUCATION TEACHER Malinda L Attending Unavailable Álvaro Barton Attending Unavailable Álvaro Barton Admitting Unavailable Álvaro Barton Attending Unavailable FLASH PEARL Attending Unavailable Álvaro Barton Attending Unavailable Álvaro Barton Attending Unavailable Álvaro Barton Attending Unavailable Álvaro Barton Attending Unavailable Álvaro Barton Admitting Unavailable Álvaro Barton Admitting Unavailable Álvaro Barton Attending Unavailable Al-Marrawi, Mhd Yaser Attending Unavailabl e Álvaro Barton Referring Unavailable Al-Marrawi, Mhd Yaser Admitting Unavailabl e Al-Marrawi, Mhd Yaser Attending Unavailabl e Álvaro Barton Admitting Unavailable Jasper MARIE Attending Unavailable Álvaro Barton Attending Unavailable FLASH PEARL Attending Unavailable Álvaro Barton Attending Unavailable Álvaro Barton Attending Unavailable FLASH PEARL Attending Unavailable Álvaro Barton Attending Unavailable Álvaro Barton Attending Unavailable Earl, EDUCATION TEACHER Malinda L Attending Unavailable Earl, EDUCATION TEACHER Malinda L Admitting Unavailable Earl, EDUCATION TEACHER Malinda L Attending Unavailable Allergies Allergy Classification Reported Allergen(s) Allergy Type Date of Onset Reaction(s) Facility (2 sources) carvedilol; Translations: [Coreg] Drug Allergy 6 unknown [facility] Repository (20 sources) Bee/Wasp/Ant venom Propensity to adverse reactions 2 [facility] (20 sources) carvedilol; Translations: [CARVEDILOL] Drug Allergy 0 Hives, Weal (disorder) [facility] (1 source) Bee/Wasp/Ant venom; Translations: [Bee/Wasp Stings] Propensity to adverse reactions (disorder) 2 [facility] Repository (1 source) carvedilol Drug Allergy 1 [facility] Repository (1 source) bee venom Drug allergy (disorder) [facility] Repository (1 source) OTHER; Translations: [OTHER] Propensity to adverse reactions (disorder) 2 [facility] Repository (5 sources) Metoprolol; Translations: [metoprolol] Drug Allergy hives [facility] (1 source) Bee pollen; Translations: [BEE POLLEN] Propensity to adverse reactions to drug (disorder) 2 [facility] Repository (1 source) Sulfonamide -class of antibiotic-; Translations: [Sulfonamide -class of antibiotic-] Propensity to adverse reactions (disorder) [facility] Repository Medications Current Medications Medication Drug Class(es) Dates Sig (Normalized) Sig (Original) aspirin 81 mg delayed release oral tablet (20 sources) Platelet Aggregation Inhibitor, Nonsteroidal Anti-inflammatory Drug Start: 11-20-2022 take 1 tablet by mouth twice daily aspirin 81 mg Oral EC Tab 81 mg = 1 tab(s), Oral, BID, Refills(s) 0 Start Date: 11/20/22 Status: Ordered Start: 11-25-2021 take 1 tablet by adrian once daily aspirin 81 mg chewable tablet CHEW 1 TABLET BY MOUTH EVERY DAY 0 11/25/2021 Active Start: 07-13-2002 ASPIRIN 325MG TABLET Take one (1) tablet daily . 0 0 07/13/2002 Active Comment on above: Take one (1) tablet daily . CHEW 1 TABLET BY ADRIAN TH EVERY DAY atorvastatin 20 mg oral tablet (20 sources) HMG-CoA Reductase Inhibitor Start: take 1 tablet by mouth once daily atorvastatin 20 mg Tab 20 mg = 1 tab(s), Oral, Daily, # 90 tab(s), Refills(s) 1, Pharmacy: [facility] [id number], 170.2, cm, 02/13/23 15:53:00 EDT, Height/Length Dosing, 102.4, kg, 02/13/23 15:53:00 EDT, Weight Dosing Start Date: 02/24/23 Status: Ordered Start: 07-10-2021 take 1 mg by mouth once daily atorvastatin 20 mg Tab mg tab(s), Oral, Daily, Refills(s) 0 Start Date: 09/04/21 Status: Ordered Comment on above: Take 1 tablet by adrian th daily at bedtime. bumetanide 2 mg oral tablet (20 sources) Loop Diuretic Start: 02-24-2023 take 1 tablet by mouth twice daily bumetanide 2 mg Tab 2 mg = 1 tab(s), Oral, BID, # 180 tab(s), Refills(s) 1, Pharmacy: [facility] [id number], 170.2, cm, 02/13/23 15:53:00 EDT, Height/Length Dosing, 102.4, kg, 02/13/23 15:53:00 EDT, Weight Dosing Start Date: 02/24/23 Status: Ordered Start: 12-30-2021 take 1 tablet by adrian th once daily in the morning bumetanide (BUMEX) 1 mg tablet Take 1 mg by mouth every morning. 0 12/30/2021 Active Start: 11-25-2021 End: 07-08-2022 take 1 tablet by mouth once daily bumetanide (BUMEX) 2 mg tablet Take 2 mg by mouth once daily. 0 11/25/2021 01/14/2022 Discontinued Start: 09-04-2021 take 1 mg by mouth twice daily bumetanide 2 mg Tab 1 mg = 0.5 tab(s), Oral, BID, Refills(s) 0 Start Date: 09/04/21 Status: Ordered End: 11-29-2021 take 1 tablet by mouth twice daily bumetanide (BUMEX) 1 mg tablet bumetanide 1 mg tablet Take 1 tablet twice a day by oral route. 0 11/29/2021 Discontinued (Changing Therapy/Dosage Form) Comment on above: bumetanide 1 mg tabl et Take 1 tablet twice a day by oral route. Take 2 mg by mouth o nce daily. 2 mg. Take 1 mg by mouth e very morning. Take 2 mg by mouth e very evening. colchicine 0.6 mg oral tablet (20 sources) Start: 02-24-2023 take 1 tablet by mouth three times daily colchicine 0.6 mg Tab 0.6 mg = 1 tab(s), Oral, TID, # 270 tab(s), Refills(s) 1, Pharmacy: [facility] [id number], 170.2, cm, 02/13/23 15:53:00 EDT, Height/Length Dosing, 102.4, kg, 02/13/23 15:53:00 EDT, Weight Dosing Start Date: 02/24/23 Status: Ordered Start: 12-09-2020 colchicine 0.6 mg tablet Take 0.6 mg by mouth as needed. As needed 1-2 times/week 0 12/09/2020 Active Start: 03-25-2017 take 1 tablet by adrian three times daily colchicine 0.6 mg Tab 0.6 mg = 1 tab(s), Oral, TID, Refills(s) 0, Gout pain Start Date: 03/25/17 Status: Ordered Comment on above: Take 0.6 mg by mouth as needed. As needed 1-2 times/week dapagliflozin 10 mg oral tablet (20 sources) Sodium-Glucose Cotransporter 2 Inhibitor Start: 3 take 1 tablet by mouth once daily Farxiga 10 mg oral tablet 10 mg = 1 tab(s), Oral, Daily, # 90 tab(s), Refills(s) 1, Pharmacy: [facility] [id number], 170.2, cm, 02/13/23 15:53:00 EDT, Height/Length Dosing, 102.4, kg, 02/13/23 15:53:00 EDT, Weight Dosing Start Date: 02/24/23 Status: Ordered Start: 11-26-2021 take 1 tablet by adrian th once daily Farxiga 10 mg oral tablet 10 mg = 1 tab(s), Oral, Daily, Refills(s) 0 Start Date: 11/20/22 Status: Ordered Comment on above: Take 10 mg by mouth daily with breakfast. Dexamethasone (1 source) Corticosteroid Start: 03-10-20 dexamethasone 2 mg, Daily, Refills(s) 0 Start Date: 03/10/23 Status: Ordered ferrous sulfate 325 mg oral tablet (15 sources) End: 11-30-19 ferrous sulfate (IRON) 325 mg (65 mg iron) tablet Take 325 mg by mouth every 48 hours. 0 11/29/2021 Discontinued (Changing Therapy/Dosage Form) Comment on above: Take 325 mg by mouth every 48 hours. Freestyle Carmen 2 Flash Glucose Monitoring 14 Day System (Sensor) (1 source) Start: 03-10-20 Freestyle Camren 2 Flash Glucose Monitoring 14 Day System (Sensor) Freestyle Carmen 2 Flash Glucose Monitoring 14 Day System (Sensor), See Instructions, 2 EA, 0, Freestyle Carmen Flash Glucose Monitoring 14 Day System (Sensor). Replace sensor every 14 days., [facility] [id number], Supply, 170.2, cm, 03/10/23 14:59:0... Start Date: 03/10/23 Status: Ordered Freestyle Carmen Flash 2 Glucose Monitoring 14 Day System (Jasper) (1 source) Start: 03-10-20 Freestyle Carmen Flash 2 Glucose Monitoring 14 Day System (Jasper) Freestyle Carmen Flash 2 Glucose Monitoring 14 Day System (Jasper), See Instructions, 1 EA, 0, Freestyle Carmen Flash Glucose Monitoring 14 Day System (Jasper), [facility] [id number], Supply, 170.2, cm, 03/10/23 14:59:00 EDT, Height/Length Dosing, 10... Start Date: 03/10/23 Status: Ordered glipiZIDE er 5 mg 24 hr extended release oral tablet (20 sources) Sulfonylurea Start: 02-25-20 take 1 tablet by mouth twice daily glipiZIDE 5 mg ER Tab 5 mg = 1 tab(s), Oral, BID, # 180 tab(s), Refills(s) 1, Pharmacy: [facility] [id number], 170.2, cm, 02/13/23 15:53:00 EDT, Height/Length Dosing, 102.4, kg, 02/13/23 15:53:00 EDT, Weight Dosing Start Date: 02/24/23 Status: Ordered Start: 03-21-2020 take 1 tablet by adrian th once daily glipiZIDE (GLUCOTROL) 5 mg tablet Take 5 mg by mouth once daily. 0 03/21/2020 Active Start: 03-25-2017 take 1 tablet by adrian th twice daily glipiZIDE 5 mg ER Tab 5 mg = 1 tab(s), Oral, BID, Refills(s) 0, High blood sugar Start Date: 03/25/17 Status: Ordered Comment on above: Take 5 mg by mouth o nce daily. lisinopril 10 mg oral tablet (20 sources) Angiotensin Converting Enzyme Inhibitor Start: 02-24-2023 take 1 tablet by mouth twice daily lisinopril 10 mg Tab 10 mg = 1 tab(s), Oral, BID, # 90 tab(s), Refills(s) 1, Pharmacy: [facility] [id number], 170.2, cm, 02/13/23 15:53:00 EDT, Height/Length Dosing, 102.4, kg, 02/13/23 15:53:00 EDT, Weight Dosing Start Date: 02/24/23 Status: Ordered Start: 07-18-2020 take 1 tablet by adrian th once daily lisinopril (ZESTRIL, PRINIVIL) 10 mg tablet Take 1 tablet by mouth once daily. Please resume this medication after PCP follow up 90 tablet 3 07/18/2020 Active Start: 03-25-2017 take 1 tablet by adrian th twice daily lisinopril 10 mg Tab 10 mg = 1 tab(s), Oral, BID, Refills(s) 0, High blood pressure Start Date: 03/25/17 Status: Ordered Comment on above: Take 1 tablet by adrian th once daily. Please resume this medication after PCP follow up metOLazone 2.5 mg oral tablet (7 sources) Thiazide-like Diuretic Start: 02-24-2023 take 1 tablet by mouth once daily metolazone 2.5 mg Tab 2.5 mg = 1 tab(s), Oral, Daily, # 90 tab(s), Refills(s) 1, Pharmacy: [facility] [id number], 170.2, cm, 02/13/23 15:53:00 EDT, Height/Length Dosing, 102.4, kg, 02/13/23 15:53:00 EDT, Weight Dosing Start Date: 02/24/23 Status: Ordered Start: 11-20-2022 take 1 tablet by adrian th once daily metolazone 2.5 mg Tab 2.5 mg = 1 tab(s), Oral, Daily, Refills(s) 0 Start Date: 11/20/22 Status: Ordered Comment on above: Take 2.5 mg by mouth once daily. 24 hr metoprolol succinate 25 mg extended release oral tablet (20 sources) beta-Adrenergic Angel Start: 02-24-2023 metoprolol 25 mg ER Tab 12.5 mg = 0.5 tab(s), Oral, Daily, # 45 tab(s), Refills(s) 1, Pharmacy: [facility] [id number], 170.2, cm, 02/13/23 15:53:00 EDT, Height/Length Dosing, 102.4, kg, 02/13/23 15:53:00 EDT, Weight Dosing Start Date: 02/24/23 Status: Ordered Start: 11-25-2021 take 1 tablet by adrian th once daily metoprolol 25 mg ER Tab 25 mg = 1 tab(s), Oral, Daily, Refills(s) 0 Start Date: 11/20/22 Status: Ordered Start: 11-25-2021 take 1 tablet by adrian th once daily metoprolol succinate ER (TOPROL XL) 50 mg 24 hr tablet Take 50 mg by mouth once daily. 0 11/25/2021 Active Comment on above: Take 50 mg by mouth once daily. Take 25 mg by mouth once daily. omeprazole 40 mg delayed release oral capsule (20 sources) Proton Pump Inhibitor Start: 02-24-2023 take 1 capsule by mouth once daily omeprazole 40 mg Cap-DR 40 mg = 1 cap(s), Oral, Daily, # 90 cap(s), Refills(s) 1, Pharmacy: [facility] [id number], 170.2, cm, 02/13/23 15:53:00 EDT, Height/Length Dosing, 102.4, kg, 02/13/23 15:53:00 EDT, Weight Dosing Start Date: 02/24/23 Status: Ordered Start: 11-20-2022 take 1 capsule by mo [facility] once daily omeprazole 40 mg Cap-DR 40 mg = 1 cap(s), Oral, Daily, Refills(s) 0 Start Date: 11/20/22 Status: Ordered Comment on above: Take 40 mg by mouth once daily. spironolactone 25 mg oral tablet (20 sources) Aldosterone Antagonist Start: 02-25-20 take 1 tablet by mouth once daily spironolactone 25 mg Tab 25 mg = 1 tab(s), Oral, Daily, # 90 tab(s), Refills(s) 1, Pharmacy: [facility] [id number], 170.2, cm, 02/13/23 15:53:00 EDT, Height/Length Dosing, 102.4, kg, 02/13/23 15:53:00 EDT, Weight Dosing Start Date: 02/24/23 Status: Ordered Start: 11-25-2021 take 1 tablet by adrian once daily spironolactone 25 mg Tab 25 mg = 1 tab(s), Oral, Daily, Refills(s) 0 Start Date: 11/20/22 Status: Ordered Start: 01-14-2005 take 1 tablet by adrian once daily in the morning ALDACTONE 25 MG ORAL TAB Take one(1) tablet daily in the morning. 90 3 01/14/2005 Active Comment on above: Take one(1) tablet d aily in the morning. Take 25 mg by mouth once daily. terazosin 5 mg oral capsule (20 sources) alpha-Adrenergic Angel Start: 08-29-2022 take 1 capsule by mouth once daily terazosin 5 mg Cap 5 mg = 1 cap(s), Oral, Daily, # 90 cap(s), Refills(s) 1, Pharmacy: [facility] [id number], 170.2, cm, 12/03/22 13:27:00 EDT, Height/Length Dosing, 93.5, kg, 12/03/22 13:27:00 EDT, Weight Dosing Start Date: 12/17/22 Status: Ordered Start: 04-28-2020 End: 07-08-2022 terazosin (HYTRIN) 5 mg caps ule 5 mg daily at bedtime. 0 04/28/2020 Active Comment on above: 5 mg daily at bedtim e. Take 5 mg by mouth d aily at bedtime. Completed/Discontinued Medications Medication Drug Class(es) Dates Sig (Normalized) Sig (Original) amLODIPine 5 mg oral tablet (1 source) Dihydropyridine Calcium Channel Angel Start: 03-21-2020 amLODIPine (NORVASC) 5 mg tablet 10 mg every evening. 0 03/21/2020 Active Comment on above: 10 mg every evening. amoxicillin 875 mg / clavulanate 125 mg oral tablet (3 sources) Penicillin-class Antibacterial Start: 11-17-2022 amoxicillin-clav ulanic acid (AUGMENTIN) 875-125 mg per tablet 12 hr buPROPion hydrochloride 150 mg extended release oral tablet (5 sources) Aminoketone Start: 01-12-2003 WELLBUTRIN SR 150MG TAB SA Take one(1) tablet daily. 0 0 01/12/2003 Active Comment on above: Take one(1) tablet d aily. [facility] NASAL OINTMENT (20 sources) Start: 10-15-2021 End: 10-15-2022 [facility] NASAL OINTMENT Apply to affected area twice daily. 30 g 11 10/15/2021 10/15/2022 Start: 10-15-2021 End: 10-15-2022 [facility] NASAL OINTMENT Apply to affected area twice daily. 30 g 11 10/15/2021 10/15/2022 Active Comment on above: Apply to affected ar ea twice daily. chlorthalidone 25 mg oral tablet (5 sources) Thiazide-like Diuretic Start: 005 take 1 tablet by mouth once daily in the morning CHLORTHALIDONE 25 MG ORAL TAB Take one(1) tablet daily in the morning. 90 3 01/14/2005 Active Comment on above: Take one(1) tablet d aily in the morning. cholecalciferol 0.025 mg oral tablet (20 sources) Vitamin D Start: 013 cholecalciferol (VITAMIN D3) 1,000 unit tab tablet 1,000 Units once daily. Only taking 500 units 0 11/24/2012 Active Comment on above: 1,000 Units once mario ly. 1,000 Units once mario ly. Only taking 500 units ciprofloxacin 500 mg oral tablet (20 sources) Quinolone Antimicrobial Start: End: take 1 tablet by mouth once daily ciprofloxacin HCl (CIPRO) 500 mg tablet Take 500 mg by mouth once daily. 0 11/25/2021 07/08/2022 Discontinued Comment on above: Take 500 mg by mouth once daily. cloNIDine hydrochloride 0.1 mg oral tablet (5 sources) Central alpha-2 Adrenergic Agonist Start: CLONIDINE 0.1 MG TAB Indications: Other and unspecified hyperlipidemia , Chronic kidney disease, stage II (mild) , Essential hypertension, benign , Coronary atherosclerosis of unspecified type of vessel, [place] or graft Take one(1) tablet daily at bedtime. 90 3 06/27/2005 Active Comment on above: Take one(1) tablet d aily at bedtime. 24 hr dilTIAZem hydrochloride 180 mg extended release oral capsule (5 sources) Calcium Channel Angel Start: take 1 tablet by mouth once daily in the evening CARDIZEM CD 180 MG ORAL CP24 Take one(1) tablet daily in the evening. 90 3 01/14/2005 Active Comment on above: Take one(1) tablet d aily in the evening. ezetimibe 10 mg oral tablet (5 sources) Dietary Cholesterol Absorption Inhibitor Start: take 1 tablet by mouth once daily in the evening ZETIA 10 MG ORAL TAB Take one(1) tablet daily in the evening. 30 0 01/14/2005 Active Comment on above: Take one(1) tablet d aily in the evening. moexipril hydrochloride 15 mg oral tablet (5 sources) Start: take 1 tablet by mouth once daily in the morning UNIVASC 15 MG ORAL TAB Take one(1) tablet daily in the morning. 90 3 01/14/2005 Active Comment on above: Take one(1) tablet d aily in the morning. NaCl 0.9% 1,000 mL (1 source) Start: End: NaCl 0.9% 1,000 mL omeprazole 40 mg / sodium bicarbonate 1680 mg powder for oral suspension (20 sources) Proton Pump Inhibitor End: Omeprazole-Sodium Bicarbonate 40-1,680 mg pack Take by mouth. 0 07/08/2022 Discontinued Comment on above: Take by mouth. ondansetron 8 mg oral tablet (20 sources) Serotonin-3 Receptor Antagonist Start: take 1 tablet by mouth every eight hours as needed ondansetron (ZOFRAN) 8 mg tablet Take 1 tablet by mouth every 8 hours as needed for nausea/vomiting. 90 tablet 1 05/20/2022 Active Comment on above: Take 1 tablet by adrian th every 8 hours as needed for nausea/vomiting. Potassium Chloride (20 sources) Start: take 1 tablet by mouth twice daily Potassium Chloride (Hid-Usjq-Voq M20) 20 mEq oral tablet, extended release 20 mEq = 1 tab(s), Oral, BID, # 180 tab(s), Refills(s) 1, Pharmacy: [facility] [id number], 170.2, cm, 02/13/23 15:53:00 EDT, Height/Length Dosing, 102.4, kg, 02/13/23 15:53:00 EDT, Weight Dosing Start Date: 02/24/23 Status: Ordered Start: 11-20-2022 take 1 tablet by adrian th twice daily Potassium Chloride (Ljc-Mkyy-Vwn M20) 20 mEq oral tablet, extended release 20 mEq = 1 tab(s), Oral, BID, Refills(s) 0 Start Date: 11/20/22 Status: Ordered Start: 11-17-2022 KLOR-CON M20 2 0 mEq tablet Start: 12-15-2021 potassium chlo ride SR (MICRO-K) 10 mEq CR capsule Take 10 mEq by mouth once daily. 0 12/15/2021 Active Comment on above: Take 10 mEq by mouth once daily. prochlorperazine 10 mg oral tablet (20 sources) Phenothiazine Start: take 1 tablet by mouth every six hours as needed prochlorperazine (COMPAZINE) 10 mg tablet Take 1 tablet by mouth every 6 hours as needed. 100 tablet 1 05/20/2022 Active Comment on above: Take 1 tablet by adrian th every 6 hours as needed. 1000 ml sodium chloride 9 mg/ml injection (1 source) Start: End: NaCl 0.9% 500 mL iv bolus Start: 01-21-2022 End: 01-21-2022 NaCl 0.9% 500 mL iv bolus solifenacin succinate 5 mg oral tablet (4 sources) Cholinergic Muscarinic Antagonist End: 07-08-2022 take 2 tablets by mouth once daily solifenacin (VESICARE) 5 mg tablet Take 10 mg by mouth once daily. 0 07/08/2022 Discontinued Comment on above: Take 10 mg by mouth once daily. sucralfate 1000 mg oral tablet (20 sources) Aluminum Complex take 1 tablet by mouth four times daily sucralfate (CARAFATE) 1 gram tablet Take 1 g by mouth four times daily. 0 Active Comment on above: Take 1 g by mouth fo ur times daily. Vitamin D3 1000 intl units oral tablet (4 sources) Start: 03-25-2017 take 1 tablet by mouth once daily Vitamin D3 1000 intl units oral tablet 1,000 International_Unit = 1 tab(s), Oral, Daily, # 30 tab(s), Refills(s) 0 Start Date: 03/25/17 Status: Ordered Problems Active Problems Problem Classification Problem Date Documented Date Episodic/Chronic Acute and unspecified renal failure (8 sources) Unspecified kidney failure; Translations: [Renal failure syndrome] Onset: 12-10-2022 Chronic Administrative/social admission (1 source) Dependent for standing; Translations: [Need for assistance with personal care] Episodic Cancer of prostate (20 sources) Malignant tumor of prostate; Translations: [Malignant neoplasm of prostate] Onset: 08-24-2021 08-24-2021 Chronic Cardiac dysrhythmias (1 source) Unspecified atrial fibrillation; Translations: [UNSPECIFIED ATRIAL FIBRILLATION] Onset: 12-11-2022 Chronic Chronic kidney disease (20 sources) Chronic kidney disease stage 2; Translations: [Chronic kidney disease, stage 2 (mild)] Onset: 06-27-2005 06-27-2005 Chronic Congestive heart failure; nonhypertensive (14 sources) Acute combined systolic and diastolic heart failure; Translations: [Acute combined systolic (congestive) and diastolic (congestive) heart failure] Onset: 09-16-2022 Chronic Coronary atherosclerosis and other heart disease (20 sources) Coronary atherosclerosis; Translations: [Atherosclerotic heart disease of [place] coronary artery without angina pectoris] Onset: 01-13-2002 11-21-2003 Chronic Deficiency and other anemia (20 sources) Iron deficiency anemia due to blood loss; Translations: [Iron deficiency anemia secondary to blood loss (chronic)] Onset: 06-15-2020 06-15-2020 Chronic Deficiency and other anemia (1 source) Anemia in chronic kidney disease; Translations: [Anemia of chronic renal failure, stage 4 (severe) (HCC)] Onset: 08-23-2020 Chronic Deficiency and other anemia (1 source) Iron deficiency anemia secondary to blood loss (chronic); Translations: [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 loss] Onset: 06-15-2020 Chronic Deficiency and other anemia (1 source) Anemia; Translations: [Anemia, unspecified] Episodic Deficiency and other anemia (5 sources) Anemia, unspecified; Translations: [ANEMIA UNSPECIFIED] Onset: 12-03-2022 Episodic Diabetes mellitus with complications (5 sources) Type 2 diabetes mellitus; Translations: [Type 2 diabetes mellitus with diabetic chronic kidney disease] Onset: 12-01-2022 Chronic Diabetes mellitus without complication (4 sources) Diabetes mellitus; Translations: [Type 2 diabetes mellitus without complications] Onset: 01-10-2023 09-02-2019 Chronic Disorders of lipid metabolism (20 sources) Hyperlipidemia; Translations: [Hyperlipidemia, unspecified] Onset: 01-13-2002 11-21-2003 Chronic Essential hypertension (20 sources) Benign essential hypertension; Translations: [Essential (primary) hypertension] Onset: 01-13-2002 11-21-2003 Chronic Fluid and electrolyte disorders (2 sources) Hyperkalemia; Translations: [Hyperkalemia] Onset: 12-11-2022 Episodic Genitourinary symptoms and ill-defined conditions (4 sources) Urge incontinence of urine 09-05-2020 Chronic Genitourinary symptoms and ill-defined conditions (8 sources) Microscopic hematuria; Translations: [Urgent desire to urinate] 09-02-2019 Episodic Heart valve disorders (3 sources) Nonrheumatic mitral (valve) insufficiency; Translations: [NONRHEUMATIC MITRAL INSUFFICIENCY] Onset: 09-16-2022 Chronic Hyperplasia of prostate (4 sources) Benign prostatic hyperplasia 09-02-2019 Chronic Hypertension with complications and secondary hypertension (3 sources) Hypertensive heart disease with heart failure; Translations: [Hypertensive heart and chronic kidney disease with heart failure and stage 1 through stage 4 chronic kidney disease, or unspecified chronic kidney disease] Onset: 11-14-2022 Chronic Immunizations and screening for infectious disease (1 source) Needs influenza immunization; Translations: [Encounter for immunization] Episodic Malaise and fatigue (1 source) Other fatigue; Translations: [OTHER FATIGUE] Onset: 12-07-2022 Episodic Other aftercare (1 source) nursing home (current) use of aspirin; Translations: [INSTITUTE SCIENTIST CURRENT USE OF ASPIRIN] Onset: 12-11-2022 Episodic Other aftercare (1 source) Other superintendent container terminal (current) drug therapy; Translations: [OTH RETIREMENT CURRENT DRUG THERAPY] Onset: 12-11-2022 Episodic Other aftercare (1 source) nursing home (current) use of oral hypoglycemic drugs; Translations: [RETIREMENT USE ORAL HYPOGLYCEMIC DX] Onset: 12-11-2022 Episodic Other diseases of kidney and ureters (4 sources) Cyst of kidney 09-07-2019 Episodic Other ear and sense organ disorders (20 sources) Mixed conductive AND sensorineural hearing loss; Translations: [Mixed conductive and sensorineural hearing loss, unilateral, left ear with restricted hearing on the contralateral side] Onset: 07-13-2021 07-13-2021 Chronic Other hematologic conditions (4 sources) Bone marrow disorder 01-06-2023 Episodic Other lower respiratory disease (1 source) Dyspnea, unspecified; Translations: [DYSPNEA UNSPECIFIED] Onset: 12-11-2022 Episodic Other nutritional; endocrine; and metabolic disorders (20 sources) 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; Translations: [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] Onset: 08-24-2021 08-24-2021 Chronic Other skin disorders (4 sources) Superficial folliculitis 10-19-2020 Episodic Otitis media and related conditions (1 source) Dysfunction of eustachian tube; Translations: [Other specified disorders of Eustachian tube, bilateral] Episodic Pneumonia (except that caused by tuberculosis or sexually transmitted disease) (1 source) Pneumonia, unspecified organism; Translations: [PNEUMONIA UNSPECIFIED ORGANISM] Onset: 12-11-2022 Episodic Pulmonary heart disease (7 sources) Pulmonary hypertension, unspecified; Translations: [Pulmonary hypertension] Onset: 05-03-2022 01-06-2023 Chronic Residual codes; unclassified (1 source) Obstructive sleep apnea (adult) (pediatric); Translations: [OBSTRUCTIVE SLEEP APNEA] Onset: 12-11-2022 Chronic Residual codes; unclassified (1 source) Do not resuscitate; Translations: [DO NOT RESUSCITATE] Onset: 12-11-2022 Episodic Respiratory failure; insufficiency; arrest (adult) (1 source) Dependence on supplemental oxygen; Translations: [DEPENDENCE ON SUPPLEMENTAL OXYGEN] Onset: 12-11-2022 Chronic Screening and history of mental health and substance abuse codes (1 source) Personal history of nicotine dependence; Translations: [PERSONAL HISTORY OF NICOTINE DEPEND] Onset: 12-11-2022 Episodic Unclassified (1 source) OTH PERICARDIAL EFFUSION NONINFLAMM; Translations: [OTH PERICARDIAL EFFUSION NONINFLAMM] Onset: 12-11-2022 Unclassified (1 source) CHRN KIDNEY DISEASE STG 3 UNSP; Translations: [CHRN KIDNEY DISEASE STG 3 UNSP] Onset: 12-11-2022 Unclassified (3 sources) Patient encounter status 01-06-2023 Unclassified (2 sources) Permanent atrial fibrillation; Translations: [Permanent atrial fibrillation] Onset: 05-03-2022 Past or Other Problems Problem Classification Problem Date Documented Da te Episodic/Chronic Coronary atherosclerosis and other heart disease (3 sources) Presence of coronary angioplasty implant and graft; Translations: [PRESENCE COR ANGPLSTY IMPLANT AND GRAFT] Onset: 3 Episodic Gastrointestinal hemorrhage (20 sources) Gastrointestinal hemorrhage; Translations: [Gastrointestinal hemorrhage, unspecified] Onset: 0 07-14-2020 Episodic Neoplasms of unspecified nature or uncertain behavior (20 sources) Myelodysplastic syndrome (clinical); Translations: [Myelodysplastic syndrome, unspecified] Onset: 0 05-29-2020 Episodic Other circulatory disease (20 sources) Low blood pressure; Translations: [Other hypotension] Onset: 2 08-24-2021 Episodic Other ear and sense organ disorders (20 sources) Impaired auditory discrimination; Translations: [Other abnormal auditory perceptions, bilateral] Onset: 1 07-13-2021 Episodic Other gastrointestinal disorders (2 sources) Personal history of other diseases of the digestive system; Translations: [Personal history of other diseases of the digestive system] Onset: 2 Episodic Other screening for suspected conditions (not mental disorders or infectious disease) (20 sources) Liver function tests abnormal; Translations: [Abnormal results of liver function studies] Onset: 4 11-21-2003 Episodic Other upper respiratory disease (2 sources) Bleeding from nose; Translations: [Epistaxis] Onset: 3 Episodic Other upper respiratory disease (1 source) Epistaxis; Translations: [Epistaxis] Onset: 2 Episodic Results Test Name Value Interpretation Reference Range Facil ity ED Note-Physicianon 07-16-20 ED Note-Physician [id number] F [facility] Outside Hospital Correspo ndenceon 07-16-2023 Outside Hospital Correspondence [id number] F [facility] Physician Referralon 023 Physician Referral [id number] FF [facility] RAD - MISCon 07-16-2023 RAD - MISC [id number] F [facility] Family Medicine Office/Clini c Noteon 07-15-2023 Family Medicine Office/Clinic Note HPI Staff Sandip is an 82 year old male presenting for follow up anemia Hospital: [facility] Admission date: 07/08 Discharge date: Symptoms the patient presented with: slow heart rate and anemia, renal injury Current concerns: none flu: due UTD questions/concerns: needs his terazosin refilled Patient think the febuxostat is giving him nosebleeds as they started up again History of Present Illness - Here for hospital F/U. Pt was admitted for what he said was Bradycardia. On review on H and P was for ARMANDO, but then states he had other issues going on. Pt is seeing cardiology later this week. Had 3 units transfused. No other issues. Review of Systems PHQ Score Initial Depression Screen Score: 2 SCORE Physical Exam Vitals & Measurements T: 36.6 ?C(Temporal Artery) HR: 60(Peripheral) RR: 16 BP: 112/60 SpO2: 97% HT: 67 in HT: 170 cm WT: 95.4 kg WT: 209.88 lb BMI: 33.01 General: alert, no acute distress ENMT: oral mucosa moist, Cardiovascular: regular rate and rhythm, normal peripheral perfusion Respiratory: Lungs CTA, respirations non labored, diminished, on 2L NC Extremities: no deformity, no trauma Neurological: oriented x 4, LOC appropriate for age, CN II-XII intact, motor strength equal & normal bilaterally, speech normal Abdomen: Soft, Nontender, Non-distended, + BS Assessment/Plan 1. Hospital discharge follow-up (Z09: Encounter for follow-up examination after completed treatment for conditions other than malignant neoplasm) - Reviewed TCM call - No D/C summary - Will request - Meds reconciled 2. Type 2 diabetes mellitus with hyperlipidemia (E11.69: Type 2 diabetes mellitus with other specified complication) - NO issues at this time. - A1c will be inaccurate give number of transfusions Ordered: Body Mass Index (BMI) documented 3008F Current tobacco non-user 1036F Depression Screening Negative 3352F Fall Risk Screen 2 or more w/injury 1100F Influenza immunization administered or previously received 4274F Most recent diastolic blood pressure <80 mm Hg 3078F Systolic BP <130 mm Hg (Most Recent) 3074F 3. Mixed hyperlipidemia (E78.2: Mixed hyperlipidemia) - Continue on a statin Ordered: Body Mass Index (BMI) documented 3008F Current tobacco non-user 1036F Depression Screening Negative 3352F Fall Risk Screen 2 or more w/injury 1100F Influenza immunization administered or previously received 4274F Most recent diastolic blood pressure <80 mm Hg 3078F Systolic BP <130 mm Hg (Most Recent) 3074F 4. Chronic kidney disease, stage 4 (severe) (N18.4: Chronic kidney disease, stage 4 (severe)) - Back to baseline - Decreased do to Dehydration in the hospital - Bumex held - 3 units given Ordered: Body Mass Index (BMI) documented 3008F Current tobacco non-user 1036F Depression Screening Negative 3352F Fall Risk Screen 2 or more w/injury 1100F Influenza immunization administered or previously received 4274F Most recent diastolic blood pressure <80 mm Hg 3078F Systolic BP <130 mm Hg (Most Recent) 3074F 5. Morbid obesity (E66.01: Morbid (severe) obesity due to excess calories) - Diet and exercise advised Ordered: Body Mass Index (BMI) documented 3008F Current tobacco non-user 1036F Depression Screening Negative 3352F Fall Risk Screen 2 or more w/injury 1100F Influenza immunization administered or previously received 4274F Most recent diastolic blood pressure <80 mm Hg 3078F Systolic BP <130 mm Hg (Most Recent) 3074F 6. Chronic respiratory failure with hypoxia (J96.11: Chronic respiratory failure with hypoxia) - Stable on 2L Ordered: Body Mass Index (BMI) documented 3008F Current tobacco non-user 1036F Depression Screening Negative 3352F Fall Risk Screen 2 or more w/injury 1100F Influenza immunization administered or previously received 4274F Most recent diastolic blood pressure <80 mm Hg 3078F Systolic BP <130 mm Hg (Most Recent) 3074F 7. 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 BMI 33.0-33.9,adult (Z68.33: Body mass index [BMI] 33.0-33.9, adult) - BMI education Ordered: Body Mass Index (BMI) documented 3008F Current tobacco non-user 1036F Depression Screening Negative 3352F Fall Risk Screen 2 or more w/injury 1100F Influenza immunization administered or previously received 4274F Most recent diastolic blood pressure <80 mm Hg 3078F Systolic BP <130 mm Hg (Most Recent) 3074F 9. Class 1 obesity due to excess calories in adult (E66.09: Other obesity due to excess calories) - Diet and exercise Ordered: Body Mass Index (BMI) documented 3008F (more content not included)... Normal [facility] Comment on above: Result Comment: Elec tronically Signed By: Mick SEN, Álvaro Davies\.br\Date and Time Signed: 07/15/23 14:28 EST Patient Educationon 07-15-20 Patient Education Nutrition BMI for Adults What is BMI? Body mass index (BMI) is a number that is calculated from a person's weight and height. BMI can help estimate how much of a person's weight is composed of fat. BMI does not measure body fat directly. Rather, it is an alternative to procedures that directly measure body fat, which can be difficult and expensive. BMI can help identify people who may be at higher risk for certain medical problems. What are BMI measurements used for? BMI is used as a screening tool to identify possible weight problems. It helps determine whether a person is obese, overweight, a healthy weight, or underweight. BMI is useful for: ? Identifying a weight problem that may be related to a medical condition or may increase the risk for medical problems. ? Promoting changes, such as changes in diet and exercise, to help reach a healthy weight. BMI screening can be repeated to see if these changes are working. How is BMI calculated? BMI involves measuring your weight in relation to your height. Both height and weight are measured, and the BMI is calculated from those numbers. This can be done either in [place] or metric measurements. Note that charts and online BMI calculators are available to help you find your BMI quickly and easily without having to do these calculations yourself. To calculate your BMI in [place] measurements: 1. Measure your weight in pounds (lb). 2. Multiply the number of pounds by 703. ? For example, for a person who weighs 180 lb, multiply that number by 703, which equals 126,540. 3. Measure your height in inches. Then multiply that number by itself to get a measurement called inches squared. ? For example, for a person who is 70 inches tall, the inches squared measurement is 70 inches x 70 inches, which equals 4,900 inches squared. 4. Divide the total from step 2 (number of lb x 703) by the total from step 3 (inches squared): 126,540 ? 4,900 = 25.8. This is your BMI. To calculate your BMI in metric measurements: 1. Measure your weight in kilograms (kg). 2. Measure your height in meters (m). Then multiply that number by itself to get a measurement called meters squared. ? For example, for a person who is 1.75 m tall, the meters squared measurement is 1.75 m x 1.75 m, which is equal to 3.1 meters squared. 3. Divide the number of kilograms (your weight) by the meters squared number. In this example: 70 ? 3.1 = 22.6. This is your BMI. What do the results mean? BMI charts are used to identify whether you are underweight, normal weight, overweight, or obese. The following guidelines will be used: ? Underweight: BMI less than 18.5. ? Normal weight: BMI between 18.5 and 24.9. ? Overweight: BMI between 25 and 29.9. ? Obese: BMI of 30 or above. Keep these notes in mind: ? Weight includes both fat and muscle, so someone with a muscular build, such as an athlete, may have a BMI that is higher than 24.9. In cases like these, BMI is not an accurate measure of body fat. ? To determine if excess body fat is the cause of a BMI of 25 or higher, further assessments may need to be done by a health care provider. ? BMI is usually interpreted in the same way for men and women. Where to find more information For more information about BMI, including tools to quickly calculate your BMI, go to these websites: ? Centers for Disease Control and Prevention: www.cdc.gov ? [place] [employer]: www.heart.org ? National Heart, Lung, and Blood [place]: www.nhlbi.nih.gov Summary ? Body mass index (BMI) is a number that is calculated from a person's weight and height. ? BMI may help estimate how much of a person's weight is composed of fat. BMI can help identify those who may be at higher risk for certain medical problems. ? BMI can be measured using [place] measurements or metric measurements. ? BMI charts are used to identify whether you are underweight, normal weight, overweight, or obese. This information is not intended to replace advice given to you by your health care provider. Make sure you discuss any questions you have with your health care provider. Document Revised: 04/05/2020 Document Reviewed: 02/11/2020 [employer] Patient Education ? 2022 [employer]. [facility] 07-14-20 Population Health Case Information Case Priority: None Programs: -- Referral Source: Paraoptometric Referral Reason: Care coordination Case Type: Transition Care Management Risk Score: -- Case Status: Enrolled (July 11, 2023) Date Assigned: July 11, 2023 Assigned By: Puneet Mcelroy Date Enrolled: July 11, 2023 Assigned Primary Personnel: Puneet Mcelroy Assigned Secondary Personnel: -- Case Physician: Álvaro Barton MD Problems Ongoing AP (angina pectoris) 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 Chronic kidney disease, stage 4 (severe) Chronic systolic congestive heart failure Follicular impetigo Kidney cysts Microscopic hematuria Mixed hyperlipidemia Myelodysplastic syndrome Primary hypertension Pulmonary HTN Type 2 diabetes mellitus with diabetic nephropathy, without long-term current use of insulin Type 2 diabetes mellitus with hyperlipidemia Urge incontinence Urinary urgency Historical Renal failure Procedure/Surgical History cysto/ud, bilateral RG Pyelogram (10/23/2011), Cataract care, Placement of stent in cardiac conduit. Home Medications aspirin 81 mg Oral EC Tab, 81 mg= 1 tab(s), Oral, BID atorvastatin 20 mg Tab, 20 mg= 1 tab(s), Oral, Daily, 1 refills bumetanide 2 mg Tab, 2 mg= 1 tab(s), Oral, BID, 1 refills, Still taking, not as prescribed: Per [facility] D/C 07/10, patient to take 1 mg QAM colchicine 0.6 mg Tab, 0.6 mg= 1 tab(s), Oral, TID, 1 refills, Not taking: per [facility] d/c 07/10, do not take Farxiga 10 mg oral tablet, 10 mg= 1 tab(s), Oral, Daily, 1 refills febuxostat, 40 mg, Oral, Daily Freestyle Carmen 2 Flash Glucose Monitoring 14 Day System (Sensor), See Instructions Freestyle Carmen Flash 2 Glucose Monitoring 14 Day System (Jasper), See Instructions glipiZIDE 5 mg ER Tab, 5 mg= 1 tab(s), Oral, BID, 1 refills lisinopril 10 mg Tab, See Instructions, Still taking, not as prescribed: per [facility] d/c 07/10, dose decreased, take 2.5 mg QD metolazone 2.5 mg Tab, 2.5 mg= 1 tab(s), Oral, Daily, 1 refills, Not taking: per [facility] d/c 07/10- do not take metoprolol 25 mg ER Tab, 12.5 mg= 0.5 tab(s), Oral, Daily, 1 refills Misc DME Prescription, See Instructions omeprazole 40 mg Cap-DR, 40 mg= 1 cap(s), Oral, Daily, 1 refills Potassium Chloride (Sss-Pupk-Hpn M20) 20 mEq oral tablet, extended release, 20 mEq= 1 tab(s), Oral, BID, 1 refills, Not taking: per [facility] d/c 07/10, do not take spironolactone 25 mg Tab, See Instructions terazosin 5 mg Cap, See Instructions Vitamin D3 1000 intl units oral tablet, 1000 International_Unit= 1 tab(s), Oral, Daily, Self Directed Allergies carvedilol (Hives) metoprolol (hives) Social History Alcohol - Denies Alcohol Use, 03/10/2023 Household alcohol concerns: No., 03/10/2023 Tobacco Former smoker, quit more than 30 days ago Tobacco Use:. Cigarettes, Household tobacco concerns: No., 04/16/2023 Former smoker, quit more than 30 days ago Tobacco Use:., 09/19/2020 Family History Family history is negative Screenings and Assessments 07/11/23 14:21:00 Result Name Value Comment Phone Call Monitoring Consent Agreed to continue call Phone Verification Patient Information Full name, street address and date of verified CM Program Enrollment Provides verbal consent for enrollment Goals and Interventions Care Plan Progress Note TCM#2 wgt check- Spoke with spouse Nicki, states patient is doing good. Currently he is still sleeping, but he was up and about all weekend. Ambulating well with a walker and wearing his 3L O2. Reports pt weight on Sat. 205lbs and 206lbs on Sun. Spouse notes this is a stable weight for pt. Notes BP HR WNL over the weekend. Denies any further questions or concerns. Communication Events Date: July 14, 2023 Method: Phone call Type: Inbound Duration (min): 2 Outcome: Case discussion Contact Type: Spouse Contact Name: Nicki Notes: TCM#2/wgt- Spoke with spouse Nicki for TCM/wgt, see ft summary note. Created By: Puneet Mcelroy Date: July 14, 2023 Method: Phone call Type: Outbound Duration (min): 1 Outcome: Left message-voicemail Contact Type: fitness and wellness coordinator Contact Name: Puneet Mcleroy Notes: TCM#2/wgt check- Attempted to contact patient for TCM/wgt status update, no answer, LM for retturn call. Created By: Puneet Mcelroy Date: July 11, 2023 Method: Phone call Type: Outbound Duration (min): 8 Outcome: Case discussion Contact Type: fitness and wellness coordinator Contact Name: Puneet Mcelroy Notes: TCM#1- Spoke with spouse for initial TCM program call status update, see ft summary note. Created By: Puneet Mcelroy [facility] Pre-Visit Planningon 023 Pre-Visit Planning - From: Karen Frye To: Álvrao Barton MD; Sent: 07/11/2023 11:03:29 EST Subject: Pre-Visit Planning Due Date/Time: 07/11/2023 11:03:00 EST Caller Name: SANDIP BROUSSARD; Caller Number: H , M Nd Dr. Barton. During a pre-visit planning chart review, I noted the following documentation in the medical record: Current Problem List: Bone marrow failure and Myelodysplastic syndrome. Current Medication List: dexamethasone. Based on the documentation above do you feel the patient has any of the following? I can update the Chronic Problem List with your response if you would like. -Immunodeficiency due to drugs -Other (please specify): In responding to this request, please exercise your independent professional judgment. The fact that a question is asked does not imply that any particular answer is desired or expected. If you have any questions, please feel free to contact me at extension [phone]. Thank you! Karen Frye LPN From: Álvaro Barton MD To: Karen Frye; Sent: 07/14/2023 12:29:52 EST Subject: RE: Pre-Visit Planning Caller Name: SANDIP BROUSSARD; Caller Number: H , M -Immunodeficiency due to drugs Normal [address] [place] [address] Pre-Visit Planning - From: Karen Frye To: Álvaro Barton MD; Sent: 07/11/2023 10:52:44 EST Subject: Pre-Visit Planning Due Date/Time: 07/11/2023 10:52:00 EST Caller Name: SANDIP BROUSSARD; Caller Number: Kofi , M Nd Dr. Barton. During a pre-visit planning chart review, I noted the following documentation in the medical record: Current Problem List: Angina pectoris, Chronic systolic congestive heart failure, and Pulmonary hypertension. Current Medication List: aspirin, bumetanide, dexamethasone, lisinopril, metolazone, metoprolol, and spironolactone. 02/13/2023 Office Visit Note: Pulmonary HTN (I27.20: Pulmonary hypertension, unspecified) The patient continues to need oxygen. No changes with this. 03/10/2023 Medicare Wellness Visit: Summary- O2 Sat Resting/Exertion Alpha : Resting. Respiratory Rate : 20 br/min. SpO2 : 94 %. Oxygen Flow Rate : 3 L/min. Based on your medical judgment, can you please clarify which, if any, of the following conditions are present? I can update the Chronic Problem List with your response if you would like. -Chronic respiratory failure with hypoxia -Chronic respiratory failure with hypercapnia -Chronic respiratory failure unspecified -Other (please specify): In responding to this request, please exercise your independent professional judgment. The fact that a question is asked does not imply that any particular answer is desired or expected. If you have any questions, please feel free to contact me at extension [phone]. Thank you! Karen Frye LPN From: Álvaro Barton MD To: Karen Frye; Sent: 07/14/2023 12:28:56 EST Subject: RE: Pre-Visit Planning Caller Name: SANDIP BROUSSARD; Caller Number: Kofi , M -Chronic respiratory failure with hypoxia Normal [address] [place] [address] Pre-Visit Planning - From: Karen Frye To: Álvaro Barton MD; Sent: 07/11/2023 10:36:38 EST Subject: Pre-Visit Planning Due Date/Time: 07/11/2023 10:36:00 EST Caller Name: SANDIP BROUSSARD; Caller Number: H , M Nd Dr. Barton. During a pre-visit planning chart review, I noted the following documentation in the medical record indicates that this patient had BMI of 36.19 on 04/16/2023 and a diagnosis of Type 2 diabetes mellitus with hyperlipidemia noted on Current Problem List. If BMI during this current visit is greater than 35: Based on your medical judgment, can you further clarify the following? I can update the Chronic Problem List with your response if you would like. -Morbid obesity (please also include additional diagnosis to reflect current BMI) -Class 3 severe obesity with serious comorbidity in adult (please also include additional diagnosis to reflect current BMI) -Other (please specify): In responding to this request, please exercise your independent professional judgment. The fact that a question is asked does not imply that any particular answer is desired or expected. If you have any questions, please feel free to contact me per TEAMS or . Thank you! Karen Frye LPN From: Álvaro Barton MD To: Karen Frye; Sent: 07/14/2023 12:27:12 EST Subject: RE: Pre-Visit Planning Caller Name: SANDIP BROUSSARD; Caller Number: H , M -Morbid obesity Normal [address] [place] [address] 07-11-20 [facility] Case Information Case Priority: None Programs: -- Referral Source: Paraoptometric Referral Reason: Care coordination Case Type: Transition Care Management Risk Score: -- Case Status: Enrolled (July 11, 2023) Date Assigned: July 11, 2023 Assigned By: Puneet Mcelroy Date Enrolled: July 11, 2023 Assigned Primary Personnel: Puneet Mcelroy Assigned Secondary Personnel: -- Case Physician: Álvaro Barton MD Problems Ongoing AP (angina pectoris) 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 Chronic kidney disease, stage 4 (severe) Chronic systolic congestive heart failure Follicular impetigo Kidney cysts Microscopic hematuria Mixed hyperlipidemia Myelodysplastic syndrome Primary hypertension Pulmonary HTN Type 2 diabetes mellitus with diabetic nephropathy, without long-term current use of insulin Type 2 diabetes mellitus with hyperlipidemia Urge incontinence Urinary urgency Historical Renal failure Procedure/Surgical History cysto/ud, bilateral RG Pyelogram (10/23/2011), Cataract care, Placement of stent in cardiac conduit. Home Medications aspirin 81 mg Oral EC Tab, 81 mg= 1 tab(s), Oral, BID atorvastatin 20 mg Tab, 20 mg= 1 tab(s), Oral, Daily, 1 refills bumetanide 2 mg Tab, 2 mg= 1 tab(s), Oral, BID, 1 refills, Still taking, not as prescribed: Per [facility] D/C 07/10, patient to take 1 mg QAM colchicine 0.6 mg Tab, 0.6 mg= 1 tab(s), Oral, TID, 1 refills, Not taking: per [facility] d/c 07/10, do not take Farxiga 10 mg oral tablet, 10 mg= 1 tab(s), Oral, Daily, 1 refills febuxostat, 40 mg, Oral, Daily Freestyle Carmen 2 Flash Glucose Monitoring 14 Day System (Sensor), See Instructions Freestyle Carmen Flash 2 Glucose Monitoring 14 Day System (Jasper), See Instructions glipiZIDE 5 mg ER Tab, 5 mg= 1 tab(s), Oral, BID, 1 refills lisinopril 10 mg Tab, See Instructions, Still taking, not as prescribed: per [facility] d/c 07/10, dose decreased, take 2.5 mg QD metolazone 2.5 mg Tab, 2.5 mg= 1 tab(s), Oral, Daily, 1 refills, Not taking: per [facility] d/c 07/10- do not take metoprolol 25 mg ER Tab, 12.5 mg= 0.5 tab(s), Oral, Daily, 1 refills Misc DME Prescription, See Instructions omeprazole 40 mg Cap-DR, 40 mg= 1 cap(s), Oral, Daily, 1 refills Potassium Chloride (Jgy-Njmf-Ktf M20) 20 mEq oral tablet, extended release, 20 mEq= 1 tab(s), Oral, BID, 1 refills, Not taking: per [facility] d/c 07/10, do not take spironolactone 25 mg Tab, See Instructions terazosin 5 mg Cap, See Instructions Vitamin D3 1000 intl units oral tablet, 1000 International_Unit= 1 tab(s), Oral, Daily, Self Directed Allergies carvedilol (Hives) metoprolol (hives) Social History Alcohol - Denies Alcohol Use, 03/10/2023 Household alcohol concerns: No., 03/10/2023 Tobacco Former smoker, quit more than 30 days ago Tobacco Use:. Cigarettes, Household tobacco concerns: No., 04/16/2023 Former smoker, quit more than 30 days ago Tobacco Use:., 09/19/2020 Family History Family history is negative Screenings and Assessments 07/11/23 14:21:00 Result Name Value Comment Phone Call Monitoring Consent Agreed to continue call Phone Verification Patient Information Full name, street address and date of verified CM Program Enrollment Provides verbal consent for enrollment Goals and Interventions Care Plan Progress Note Admit Date: 07/08/23 Date of Discharge: 07/10/23 Follow-up appointment scheduled? yes, TCM f/u with PCP, Dr. Barton 07/15 @ 4068 Did you understand your discharge instructions? yes Are you able to follow them? yes Did you receive new medications? yes, febuxostat 40 mg QD, lisinopril decreased to 2.5 mg QD, bumex decreased to 1 mg Qam (potassium, colchicine, metolazone- stopped) Have you filled the Rx's? yes Are you taking them as prescribed? yes Are you having difficulty eating or swallowing your pills? no Are you having any stomach upset, diarrhea or constipation? no How are you sleeping? sleeping well per spouse, Nicki (on hippa) Are you having any pain? none reported Do you have everything you need at home to care for yourself? yes Do you have Home Health? yes Initial Transitional Care Management Program Call- Reviewed d/c instructions and dx of: acute renal failure, myelodysplastic disease, anemia requiring transfusions, HLD, DM, CKD, HTN, CHF. Medications reconciled with patient spouse Nicki, d/c list, and EHR. Purpose and side effects of new medications reviewed with patient spouse. Patient spouse states patient is doing good, he is currently napping. States patient has been resting since d/c home. No wgt to report but are aware to monitor daily. Spouse will monitor BP as well. Spouse is aware of signs and symptoms of fluid retention/overload and to report to provider. States patient's eating and drinking okay. Denies issues with bowel or urinary system. Reviewed the following appointments with patient: (more content not included)... Normal [facility] 36on 05-28-2023 36 Wrong dosage Normal [facility] RAD - MISCon 05-13-2023 RAD - MIS [id number] Normal [facility] Family Medicine Office/Clini c Noteon 04-21-2023 Family Medicine Office/Clinic Note HPI Staff 82 year old male presenting for 1 month for DM & HTN Do you have any of the following symptoms? Foot Exam: due Eye Exam: UTD Last A1C: Hgb A1C %: 8.1 % High (01/06/23 12:01:00) Statin: atorvastatin 20mg Patient is here for follow up on hypertension. How often are you checking your blood pressure? daily What are your average readings? 100/50_ Yearly BMP:03/11/23 _ flu: will take today Questions/Concerns: xarelto is 500.00 didn't get it is there a cheaper alternative History of Present Illness Sandip Broussard is an 82-year-old male who presents today for a follow-up evaluation. He is accompanied by an adult female. His last blood transfusion was today at [facility]. He was seen by his oncologist last week and the week before. He is seeing Dr. Humphrey in [place]. His oncologist is keeping him on a weekly regimen of 1 transfusion a week. He is keeping him regulated between 6.5 and [address] Humphrey is not going to add another unit until his hemoglobin gets down to 6.5 and he is going to work with him until his levels are going to fall lower. Dr. Brown told him that there is no cure and that there is nothing else they can do for him. They can just keep him comfortable by the blood transfusions. He has some swelling in his legs. He drinks a couple of cans of pop. Sometimes he will have a couple of pops in one day, and when he does, his feet swell up. He is on Xarelto. He was on Eliquis in the past, but it caused nosebleeds. He is not interested in Coumadin. Review of Systems PHQ Score Initial Depression Screen Score: 0 Physical Exam Vitals & Measurements T: 36.5 ?C(Oral) HR: 56(Peripheral) RR: 18 BP: 128/66 SpO2: 95% HT: 67 in HT: 170 cm WT: 104.6 kg WT: 230.12 lb BMI: 36.19 General: alert, no acute distress Cardiovascular: regular rate and rhythm, normal peripheral perfusion Respiratory: Lungs CTA, respirations non labored Extremities: no deformity, no trauma Neurological: oriented x 4, LOC appropriate for age, CN II-XII intact, motor strength equal & normal bilaterally, speech normal Diabetic Foot Exam Decreased Monofilament Sensation Foot: Left - Normal, Right - Normal Bunions/Foot Deformity: Left - Normal, Right - Normal Abnormal Pulse Foot: Right - Abnormal, Left - Abnormal Skin Lesions Foot: Left - Normal, Right - Normal Foot Exam Findings: Hard to appreciate pulses Assessment/Plan 1. Primary hypertension (I10: Essential (primary) hypertension) Patient is at goal at this time. We will continue to monitor. 2. Type 2 diabetes mellitus with diabetic nephropathy, without long-term current use of insulin (E11.21: Type 2 diabetes mellitus with diabetic nephropathy) It is hard to understand where the patient's blood sugars are given that he has had multiple transfusions. Unsure if his hemoglobin is accurate at this time. I do believe we should be moving more towards comfort care given his need for a transfusion a week. We will decrease A1c checks at this time as I do believe they would be on and will not be accurate. 3. Bone marrow failure (D61.9: Aplastic anemia, unspecified) Patient seeing oncology. Only recommendation is transfusions. No treatment available at this time. We will see the patient back in 3 months. Patient should continue to follow with oncology. 4. BMI 36.0-36.9,adult (Z68.36: Body mass index [BMI] 36.0-36.9, adult) BMI education given. 5. Class 1 obesity due to excess calories in adult (E66.09: Other obesity due to excess calories) As above 6. Chronic systolic congestive heart failure (I50.22: Chronic systolic (congestive) heart failure) No signs of congestive heart failure, but concerned with the patient getting multiple transfusions. Reviewed the patient's chart and I am unsure why the patient is on Xarelto. Please follow up with oncology about this recommendation. Encounter for immunization (Z23: Encounter for immunization) Portions of this record may have been created with voice recognition artificial intelligence software, specifically [employer], Best Teacher and or oNoise. Substitutions may have occurred due to the inherent limitations of voice recognition and artificial intelligence software. ATTESTATION: Documentation services were performed after patient or guardian consented to allow [employer] to record this visit. [employer] clinical reimbursement specialist and provider reviewed before signing. 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 Normal [facility] Comment on above: Result Comment: Elec tronically Signed By: Álvaro Barton MD\.br\Date and Time Signed: 04/21/23 10:37 EDT\.br\Electronically Co-Signed By: Itzel Morrow\.br\Date and Time Co-Signed: 04/16/23 16:56 EDT Consent for Flu Vaccineon Consent for Flu Vaccine [id number]#[id number]: 127 Normal [facility] Ambulatory Visit Summaryon 0 04-16-2023 Ambulatory Visit Summary SANDIP BROUSSARD :1940 Visit Date:04/16/2023 Ambulatory Visit Instructions Your Diagnosis Primary hypertension Type 2 diabetes mellitus with diabetic nephropathy, 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 BMI 36.0-36.9,adult Class 1 obesity due to excess calories in adult Your Care Team Attending Physician - Álvaro Barton MD Primary Care Physician - Álvaro Barton MD This Is Your Medications List [facility] Prescription (Freestyle Carmen 2 Flash Glucose Monitoring 14 Day System (Sensor)) [facility] Prescription (Freestyle Carmen Flash 2 Glucose Monitoring 14 Day System (Jasper)) [facility] Prescription ([facility] DME Prescription) aspirin (aspirin 81 mg Oral EC Tab) atorvastatin (atorvastatin 20 mg Tab) bumetanide (bumetanide 2 mg Tab) cholecalciferol (Vitamin D3 1000 intl units oral tablet) colchicine (colchicine 0.6 mg Tab) dapagliflozin (Farxiga 10 mg oral tablet) dexamethasone glipiZIDE (glipiZIDE 5 mg ER Tab) lisinopril (lisinopril 10 mg Tab) metolazone (metolazone 2.5 mg Tab) metoprolol (metoprolol 25 mg ER Tab) omeprazole (omeprazole 40 mg Cap-DR) potassium chloride (Potassium Chloride (Zea-Oglm-Rlx M20) 20 mEq oral tablet, extended release) spironolactone (spironolactone 25 mg Tab) terazosin (terazosin 5 mg Cap) Procedures Performed cysto/ud, bilateral RG Pyelogram (10/23/2011), Cataract care, Placement of stent in cardiac conduit. Discharge Vitals Temperature (Oral) 36.5 ?C Heart Rate (Peripheral) 56 Respiratory Rate 18 Blood Pressure 128/66 Height 170 cm Height 67 in Weight 104.6 kg Weight 230.12 lb BMI 36.19 What to do next Scheduled Follow-Up Appointments Friday 3:00 PM EST With: Álvaro Barton MD Where: [address] [address]- \.br\ Medications\.br\ What How Much When Why Instructions\.br \ Unchanged aspirin (aspirin 81 mg Oral EC Tab) 1 Tablets By Mouth 2 times a day\.br\ Unchanged atorvastatin (atorvastatin 20 mg Tab) 1 Tablets By Mouth Every day\.br\ Unchanged bumetanide (bumetanide 2 mg Tab) 1 Tablets By Mouth 2 times a day\.br\ Unchanged cholecalciferol (Vitamin D3 1000 intl units oral tablet) 1 Tablets By Mouth Every day\.br\ Unchanged colchicine (colchicine 0.6 mg Tab) 1 Tablets By Mouth 3 times a day\.br\ Unchanged dapagliflozin (Farxiga 10 mg oral tablet) 1 Tablets By Mouth Every day\.br\ Unchanged dexamethasone 2 Milligram Every day\.br\ Unchanged glipiZIDE (glipiZIDE 5 mg ER Tab) 1 Tablets By Mouth 2 times a day\.br\ Unchanged lisinopril (lisinopril 10 mg Tab) 1 Tablets By Mouth 2 times a day\.br\ Unchanged metolazone (metolazone 2.5 mg Tab) 1 Tablets By Mouth Every day\.br\ Unchanged metoprolol (metoprolol 25 mg ER Tab) 0.5 Tablets By Mouth Every day\.br\ Unchanged Misc Prescription (Freestyle Carmen 2 Flash Glucose Monitoring 14 Day System (Sensor)) See instructions Primary hypertension Type 2 diabetes mellitus with diabetic nephropathy, without long-term current use of insulin Mixed hyperlipidemia Bone marrow failure Freestyle Carmen Flash Glucose Monitoring 14 Day System (Sensor). Replace sensor every 14 days. \.br\ Unchanged Misc Prescription (Freestyle Carmen Flash 2 Glucose Monitoring 14 Day System (Jasper)) See instructions Primary hypertension Type 2 diabetes mellitus with diabetic nephropathy, without long-term current use of insulin Mixed hyperlipidemia Bone marrow failure Freestyle Carmen Flash Glucose Monitoring 14 Day System (Jasper) \.br\ Unchanged Misc Prescription (Misc DME Prescription) See instructions One touch ultra blue test strips Use as directed to test sugars once a day \.br\ Unchanged omeprazole (omeprazole 40 mg Cap-DR) 1 Capsules By Mouth Every day\.br\ Unchanged potassium chloride (Potassium Chloride (Yda-Xlnn-Hpn M20) 20 mEq oral tablet, extended release) 1 Tablets By Mouth 2 times a day\.br\ Unchanged spironolactone (spironolactone 25 mg Tab) 1 Tablets By Mouth Every day\.br\ Unchanged terazosin (terazosin 5 mg Cap) 1 Capsules By Mouth Every day\.br\ Allergies\.br\ carvedilol (Hives)\.br\ metoprolol (hives)\.br\ Problems\.br\ Ongoing - Any problem that you are currently receiving treatment for.\.br\ AP (angina pectoris)\.br\ Bone marrow failure\.br\ BPH without obstruction/lowe r urinary tract symptoms\.br\ Chronic systolic congestive heart failure\.br\ Follicular impetigo\.br\ Kidney cysts\.br\ Microscopic hematuria\.br\ Mixed hyperlipidemia\. br\ Primary hypertension\.br \ Pulmonary HTN\.br\ Renal failure\.br\ Type 2 diabetes mellitus with diabetic nephropathy, without long-term current use of insulin\.br\ Urge incontinence\.br \ Urinary urgency\.br\ \.br\ [facility] 04-07-2023 Outside Labs [id number]#[id number]: 127 Normal [facility] 03-20-2023 Outside Labs [id number]#[id number]: 127 Normal [facility] Physician Orderon 03-19-2023 Physician Order [id number]#1.00CD :127 Normal [facility] .Interpretation:on 3 HCV Ab IA Ql Comment Invalid Interpretation Code [facility] Comment on above: Result Comment: Not infected with HCV unless early or acute infection is suspected (which may be delayed in an immunocompromised individual), or other evidence exists to indicate HCV infection. Performed at: [facility] [id number] PhD Mingo Mckeon Performed By: #### 2 [id number], 5481520742, 7146717, 2239891806, 7670259368, 514651192, 9930807, 7724400275, 1091173, 9837898, 6056315, 0104575465, 3195738, 0189966, 1617693, 92258098, 4010517, 774015345, 4511375312, 59688097, 6257847, 8114125, 0917447587 ####[facility] [address] [place] [address] Comp panel: Leuk/Lym [id number] n 03-18-2023 Analysis and Gating Strategy Comment Invalid Interpretation Code [facility] Comment on above: Result Comment: 8 co tete analysis with CD45/SSC gating Technical-Analysis performed at [facility], [address] [place] [address] Director: Lisa Anguiano [facility] Performed By: #### 2 [id number], 3051693491, 7427335, 8152830474, 2228869422, 842642663, 4918004, 1279617691, 3084834, 3591434, 3405291, 9334507466, 9035706, 8758707, 5238574, 74104020, 6407771, 957072769, 9205503111, 87983254, 6694711, 2876115, 8760427318 ####[facility] [address] [place] [address] Annotation comment [Interpretation] Narrative Comment Invalid Interpretation Code [facility] Comment on above: Result Comment: If m onocytosis (absolute count >= 500/uL and >= 10% of leukocytes) persists for > 3 months without secondary etiologies identified, further evaluation of a myeloid neoplasm, such as chronic myelomonocytic leukemia, is warranted if clinically indicated. Recommend clinical correlation. Performed By: #### 2 [id number], 6867952806, 9859483, 4642226636, 5335428004, 033311946, 6649007, 2967629773, 0194466, 8362924, 8143088, 0693844224, 5068510, 2257962, 7499436, 42030532, 1305253, 942155884, 0710929887, 50741437, 3351478, 9442625, 7233721915 ####[facility] [address] [place] [address] Assessment of Leukocytes Comment Invalid Interpretation Code [facility] Comment on above: Result Comment: No m onoclonal B cell population is detected. kappa:lambda ratio 1.0 There is no loss of, or aberrant expression of, the sarmiento T cell antigens to suggest a neoplastic T cell process. CD4:CD8 ratio 2.0 No circulating blasts are detected. Granulocytes show left-shifted maturation. Monocytes show aberrant expression of CD56, a finding that can be seen in association with both reactive/activated processes as well as neoplastic processes. Analysis of the lymphocyte population shows: B cells 10%, T cells 68%, NK cells 22% Performed By: #### 2 [id number], 2730933533, 3505927, 7661162235, 8966864313, 062842704, 3127135, 2300537250, 6201074, 8919972, 0920728, 5231603622, 4704890, 2747820, 7892673, 39711080, 3184149, 412061059, 1750093026, 50070667, 5043363, 2854256, 6159908013 ####[facility] [address] [place] [address] CLINICAL INFORMATION:FIND:PT : Comment Invalid Interpretation Code [facility] Comment on above: Result Comment: A re cent CBC was not available for review at the time this report was prepared. Performed By: #### 2 089373909, 8575958840, 2708936, 6783040765, 4573277669, 772661704, 0578747, 5815617865, 0978707, 4266863, 1988092, 1402144002, 3734477, 8558125, 4662560, 19480845, 6976780, 957356763, 2716330455, 12147867, 9095645, 6672960, 3739142191 ####[facility] [address] [place] [address] Immunophenotyping study Comment Invalid Interpretation Code [facility] Comment on above: Result Comment: CD2 Normal CD3 Normal CD4 Normal CD5 Normal CD7 Normal CD8 Normal CD10 Normal CD11b Normal CD13 Normal CD14 Normal CD16 Normal CD19 Normal CD20 Normal CD33 Normal CD34 Normal CD38 Normal CD45 Normal CD56 See Text CD57 Normal CD117 Normal HLA-DR Normal KAPPA Normal LAMBDA Normal CD64 Normal Performed By: #### 2 [id number], 8020877238, 5825403, 4018948956, 6766636325, 029209495, 4189076, 3152063098, 2428051, 9392868, 0329447, 3043385064, 9163753, 3674102, 1024536, 47566084, 7533253, 314818547, 3474045235, 51857401, 2957767, 5672250, 1757347095 ####[facility] [address] [place] [address] Laboratory comment Edmundo (Report) Comment Invalid Interpretation Code [facility] Comment on above: Result Comment: Each antibody in this assay was utilized to assess for potential abnormalities of studied cell populations or to characterize identified abnormalities. This test was developed and its performance characteristics determined by [employer]. It has not been cleared or approved by the U.S. Food and Drug Administration. The FDA has determined that such clearance or approval is not necessary. This test is used for clinical purposes. It should not be regarded as investigational or for research. Performed at: -Y [facility] [facility] [place], [place] [id number] [facility] Silvio Gonzalez Performed at: TG [facility] [address] [facility], [place] [id number] [facility] Silvio Gonzalez Performed By: #### 2 111827268, 3938410525, 5678459, 7636042709, 5525325663, 130832053, 4597492, 1178202967, 5427430, 6704719, 6568050, 0380397277, 4740650, 0573579, 9243338, 38062125, 5403267, 437462146, 1652222267, 96901076, 2551468, 9589352, 0509472968 ####[facility] [address] [place] [address] Pathologist interpretation (Unsp spec) [Interp] Comment Invalid Interpretation Code [facility] Comment on above: Result Comment: Aber rant monocytosis and left shifted neutrophils, see comment. Performed By: #### 2 169675219, 9002084472, 8414529, 6985565994, 2499987912, 204333611, 5716174, 5443685034, 8121116, 7473451, 4420043, 6968533481, 0281040, 5891618, 2200963, 67136696, 8490187, 369032389, 7406322485, 65451807, 6333981, 1348351, 7336806430 ####[address] [place] [address] Pathologist name Comment Invalid Interpretation Code [facility] Comment on above: Result Comment: Esdras Alexandra M.D. Performed By: #### 2 715336252, 0617645471, 7293374, 7793650391, 5710973791, 964517697, 4602855, 4383461623, 3902009, 5149574, 4847932, 3207252140, 7117566, 0887702, 9266346, 72433314, 5322090, 919886848, 9245965672, 81128824, 0598099, 3070514, 2110437675 ####[address] [place] [id number] Specimen source Nom (Unsp spec) Comment Invalid Interpretation Code [facility] Comment on above: Result Comment: Joo pheral blood Performed By: #### 2 652171101, 6997131197, 2492643, 3044103308, 5575183635, 634242979, 8064691, 5404317917, 1874646, 0729262, 7178886, 1939227255, 8007583, 0088109, 0667780, 09012188, 8668944, 016206674, 6959361261, 30332861, 4741435, 6136264, 2244707912 ####[address] [place] [id number] Viable cells/100 cells (Unsp spec) Comment Invalid Interpretation Code [facility] Comment on above: Result Comment: 84% Performed By: #### 2 560235872, 6897593278, 7202542, 7249599680, 9078005117, 130232409, 3347924, 1038261915, 9476440, 9925565, 8210640, 3021306950, 1726165, 5304597, 3079246, 68314742, 6617301, 544332077, 4637842883, 82927825, 3302714, 2367135, 2061286039 ####[facility] [address] [place] [address] Copper Lvlon 03-18-2023 Copper [Mass/Vol] 73 microgram/dL Invalid Interpretation Code 69-132 [facility] Comment on above: Result Comment: This test was developed and its performance characteristics determined by [facility]. It has not been cleared or approved by the Food and Drug Administration. Detection Limit = 5 Performed at: [facility] [address] [place], [place] [id number] MD Ronaldo Dao Performed By: #### 2 588399249, 3599558141, 6236475, 2775455157, 5214660175, 958314217, 6113763, 4553711823, 9468904, 6437909, 4295437, 1931310586, 9765558, 8756073, 9444827, 97453322, 9963058, 505229710, 2773487673, 03748617, 1102775, 8424842, 2814977955 ####[facility] [address] [place] [address] Flow Interp 16 or moreon Flow Interp 16 or more Performed Invalid Interpretation Code [facility] Comment on above: Result Comment: Perf ormed at: -Y [facility] [address] [place], [place] [id number] [facility] Silvio Cooncheyanne Performed By: #### 2 812833667, 0684290761, 3400443, 4007442167, 3774681789, 385184181, 7664531, 9744516956, 3866119, 1680959, 3956348, 2325918893, 6003419, 7619980, 5729010, 51580025, 6951711, 237795631, 2443088140, 52329522, 3794481, 2750607, 6074603583 ####[facility] [address] [place] [address] Flow Marker, Firston 023 Flow Marker, First Performed Invalid Interpretation Code [facility] Comment on above: Result Comment: Perf ormed at: -Y [facility] [address] [facility] [place], [place] [id number] [facility] Clementinacheyanne Bhumisavannah Performed By: #### 2 764355554, 1250105048, 1064749, 7089648409, 6267248768, 508564751, 6634136, 6332246590, 4704579, 0626791, 1188353, 5739399239, 7505203, 8288339, 2118670, 13916207, 9100794, 915714913, 2137169138, 03758323, 7178636, 4609445, 9034869072 ####[address] [place] [address] Flow Markers X 15on 03-18-20 23 Flow Markers X 15 Performed Invalid Interpretation Code [facility] Comment on above: Result Comment: Perf ormed at: -[facility] [address] [facility] [place], [place] [id number] [facility] Clementinacheyanne Bhumisavannah Performed By: #### 2 764966563, 2375128951, 8495070, 2611925630, 7786243465, 739799599, 6614349, 9812158473, 0084634, 4209129, 1479299, 9614932648, 2791337, 2144053, 1764287, 29393689, 7472232, 019794570, 9960968766, 56587434, 6805325, 1192913, 0926574029 ####[address] [address] Flow Markers X 3on 3 Flow Markers X 3 Performed Invalid Interpretation Code [facility] Comment on above: Result Comment: Perf ormed at: -[facility] [address] [facility] [place], [place] [id number] [facility] Chencheyanne Bhumiarmandon Performed By: #### 2 344594900, 6666202985, 1319671, 5060608504, 4385700532, 764507024, 8585615, 9158314281, 9529598, 9305127, 5737075, 1867199067, 5958047, 4601044, 9060797, 38065775, 7195839, 446051287, 6707929247, 18368669, 2513427, 6092409, 9375609698 ####[facility] [address] [place] [address] Flow Markers X 5on 3 Flow Markers X 5 Performed Invalid Interpretation Code [facility] Comment on above: Result Comment: Perf ormed at: -[facility] [address] [facility] [place], [place] [id number] [facility] Silvio Gonzalez Performed By: #### 2 373157836, 7393366839, 4237314, 1299277705, 0958697032, 025233359, 2496581, 2981406802, 7231752, 9027944, 7569295, 8820904695, 5187487, 9562274, 3580433, 84628394, 7406168, 700285289, 6539708423, 73876802, 8623198, 2730657, 9403516973 ####[facility] [address] [place] [address] HCV Antibody RFX to Quant PC Zach 03-18-2023 HCV IgG IA Ql Non-Reactive Invalid Interpretation Code Non Reactive [facility] Comment on above: Result Comment: Perf ormed at: [facility] [address] [id number] PhD Mingo Mckeon Performed By: #### 2 867573573, 8026748231, 7379980, 8699542130, 7001655631, 992412186, 2397577, 5599359049, 8398139, 2245282, 9669431, 8923037135, 0649149, 8000698, 3477621, 94316177, 5280448, 160546008, 5680190747, 19990325, 1116201, 4384044, 7108646546 ####[facility] [address] [place] [address] HIV Screen 4th Generation wR fxon 03-18-2023 HIV 1+2 Ab+HIV1 p24 Ag IA Ql Non-Reactive Invalid Interpretation Code Non Reactive [facility] Comment on above: Result Comment: HIV Negative HIV-1/HIV-2 antibodies and HIV-1 p24 antigen were NOT detected. There is no laboratory evidence of HIV infection. Performed at: [address] [id number] PhD Mingo Mckeon Performed By: #### 2 933850112, 8762248520, 2938417, 3768419228, 2315005231, 138321406, 5678085, 3578397639, 7233826, 2817422, 6318001, 1395553453, 4766502, 2776917, 6176299, 62257790, 1259083, 397823319, 2798390560, 99581661, 8311219, 9267240, 1837726279 ####[address] [place] [address] Hep A IgMon 03-18-2023 HAV IgM IA Ql Negative Invalid Interpretation Code Negative [facility] Comment on above: Result Comment: Perf ormed at: [address] [id number] PhD Mingo Mckeon Performed By: #### 2 968931971, 3503623181, 8545747, 9489100543, 6215984325, 959297791, 1058362, 2544070029, 9926608, 8351382, 6222215, 4895493880, 9047756, 5094458, 5314457, 49924807, 8459226, 639723739, 6662364328, 06237847, 8408816, 4153725, 7452983674 ####[address] [place] [address] Hep B Core Ab, IgMon 023 HBV core IgM IA Ql Negative Invalid Interpretation Code Negative [facility] Comment on above: Result Comment: Perf ormed at: [address] [id number] PhD Mingo Mckeon Performed By: #### 2 735375985, 8918967034, 5322689, 9214235447, 6418126965, 048607898, 2624623, 5356110562, 8023028, 7190858, 2782777, 5092977124, 2490424, 2146511, 0678927, 59736328, 9172062, 184825112, 5226476033, 72938001, 0392082, 6991342, 6185816957 ####[facility] [address] [place] [address] Hep Bs Abon 03-18-2023 HBV surface Ab Ql (S) Non-Reactive Invalid Interpretation Code [facility] Comment on above: Result Comment: Non Reactive: Inconsistent with immunity, less than 10 mIU/mL Reactive: Consistent with immunity, greater than 9.9 mIU/mL Performed at: [employer] [id number] PhD Mingo Mckeon Performed By: #### 2 312582222, 1328719435, 0586618, 9980592232, 6006346531, 987659492, 0270450, 9463509091, 3247426, 7930979, 6376728, 5095859282, 9367272, 8547114, 0358080, 47051983, 0832789, 685508451, 6767606246, 25631823, 1455118, 2707106, 0366321370 ####[address] [place] [address] Hep Bs Agon 03-18-2023 HBV surface Ag IA Ql Negative Invalid Interpretation Code Negative [facility] Comment on above: Result Comment: Perf ormed at: [facility] [address] [id number] PhD Mingo Mckeon Performed By: #### 2 577102870, 5907675297, 6251210, 3537986559, 7614742604, 204896130, 3725085, 7490949444, 2050142, 9262089, 8047912, 8292201517, 0040229, 0727958, 7700466, 84138300, 8360079, 030503466, 5460958436, 83343939, 7200052, 9904755, 8213853522 ####[facility] [address] [place] [address] Office Visiton 03-14-2023 Follow-up visit [id number] Sandip Broussard 1940 M Date Provider Department Center 03/14/2023 SHENG BERGMAN DONNIE [facility] Family History Problem Relation Age of Onset Hypertension Mother Stroke Father Breast cancer Sister Family Status - Relation Status Age at Mother Father Sister Level of Service:25893 MO OFFICE/OUTPATIENT ESTABLISHED LOW MDM 20-29 MIN Reason for Visit and Comments: Follow-up [285524] - 6 MONTH FOLLOW UP Normal [facility] Family Medicine Office/Clini c Noteon 03-13-2023 Family Medicine Office/Clinic Note Chief Complaint follow up chronic care, had medicare wellness today HPI Staff Patient here for 2 month follow up multiple medical problems Had medicare wellness this afternoon w/ Puneet Recently referred to [facility] oncology Puneet noted BP 100/50 and he does c/o dizziness at times questions/concerns: none needs one touch ultra blue test strips refilled and dexamethasone was established through hospice so unsure if you want him to be on this? If so needs a rx for it History of Present Illness Sandip Broussard is an 82-year-old male who presents today for a follow-up evaluation. He is accompanied by an adult female. The patient has an appointment with his oncologist tomorrow, 03/11/2023, at 1:00 PM at [facility]. The patient needs glucose test strips. Review of Systems PHQ Score Initial Depression Screen Score: 0 Physical Exam Vitals & Measurements T: 36.5 ?C(Oral) HR: 64(Peripheral) RR: 20 BP: 92/48 SpO2: 94% HT: 67 in HT: 170.2 cm WT: 101.3 kg WT: 222.86 lb BMI: 34.97 General: alert, no acute distress ENMT: oral mucosa moist, no pharyngeal erythema or exudate Cardiovascular: regular rate and rhythm, normal peripheral perfusion Respiratory: Diminished breath sounds bilaterally Extremities: no deformity, no trauma Neurological: oriented x 4, LOC appropriate for age, CN II-XII intact, motor strength equal & normal bilaterally, speech normal Assessment/Plan 1. Primary hypertension (I10: Essential (primary) hypertension) Patient is at goal today. Patient is feeling a little dizzy, but this could be because he is symptomatically anemic. Patient is going to get a blood test tomorrow to check. We will order blood work today for his diabetes, but that will be done tomorrow. We will continue the patient on his blood pressure medication as before. 2. Type 2 diabetes mellitus with diabetic nephropathy, without long-term current use of insulin (E11.21: Type 2 diabetes mellitus with diabetic nephropathy) Again, we will double check his labs for tomorrow's visit with oncology and then we will move forward. 3. Mixed hyperlipidemia (E78.2: Mixed hyperlipidemia) Continue taking your statin. 4. Bone marrow failure (D61.9: Aplastic anemia, unspecified) Patient sees oncology. We will continue to monitor. 5. BMI 32.0-32.9,adult (Z68.32: Body mass index [BMI] 32.0-32.9, adult) 6. Class 1 obesity due to excess calories in adult (E66.09: Other obesity due to excess calories) We will see the patient back in 1 month. Described why we are seeing the patient on a frequent basis. Given that the patient has a complex medical issues, we want to make sure nothing falls through the cracks as the patient is no longer on hospice care. Portions of this record may have been created with voice recognition artificial intelligence software, specifically Delph[employer], Best Teacher and or oNoise. Substitutions may have occurred due to the inherent limitations of voice recognition and artificial intelligence software. ATTESTATION: Documentation services were performed after patient or guardian consented to allow [employer] to record this visit. VIR[employer] clinical reimbursement specialist and provider reviewed before signing. VIRGEN: Kristofer Rigor/Pasted by Maria Ines Puente. Follow-up No qualifying data available Problem List/Past Medical History Ongoing AP (angina pectoris) 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 Chronic systolic congestive heart failure Follicular impetigo Kidney cysts Microscopic hematuria Mixed hyperlipidemia Primary hypertension Pulmonary HTN Renal failure Type 2 diabetes mellitus with diabetic nephropathy, without long-term current use of insulin Urge incontinence Urinary urgency Historical No qualifying data Procedure/Surgical History cysto/ud, bilateral RG Pyelogram (10/23/2011), Cataract care, Placement of stent in cardiac conduit. Medications aspirin 81 mg Oral EC Tab, 81 mg= 1 tab(s), Oral, BID atorvastatin 20 mg Tab, 20 mg= 1 tab(s), Oral, Daily, 1 refills bumetanide 2 mg Tab, 2 mg= 1 tab(s), Oral, BID, 1 refills colchicine 0.6 mg Tab, 0.6 mg= 1 tab(s), Oral, TID, 1 refills dexamethasone, 2 mg, Daily Farxiga 10 mg oral tablet, 10 mg= 1 tab(s), Oral, Daily, 1 refills Freestyle Carmen 2 Flash Glucose Monitoring 14 Day System (Sensor), See Instructions Freestyle Carmen Flash 2 Glucose Monitoring 14 Day System (Jasper), See Instructions glipiZIDE 5 mg ER Tab, 5 mg= 1 tab(s), Oral, BID, 1 refills lisinopril 10 mg Tab, 10 mg= 1 tab(s), Oral, BID, 1 refills metolazone 2.5 mg Tab, 2.5 mg= 1 tab(s), Oral, Daily, 1 refills metoprolol 25 mg ER Tab, 12.5 mg= 0.5 tab(s), Oral, Daily, 1 refills Misc DME Prescription, See Instructions omeprazole 40 mg Cap-DR, 40 mg= 1 cap(s), Oral, Daily, 1 refills Potassium Chloride (Xza-Jiss-Dbq M20) 20 mEq oral tablet, extended release, 20 mEq= 1 tab(s), Oral, BID, 1 refills spironolact (more content not included)... Normal [facility] Comment on above: Result Comment: Elec tronically Signed By: Álvaro Barton MD\.br\Date and Time Signed: 03/13/23 12:59 EDT\.br\Electronically Co-Signed By: Maria Ines Puente.br\Date and Time Co-Signed: 03/10/23 15:51 EDT Family Medicine Office/Clinic Note Chief Complaint Subsequent Medicare Wellness History of Present Illness I was in the office and available for consultation and to provide direct supervision at the time of this visit. I have provided supervision of the care team and have reviewed this chart and office note and agree with the plan of care. ovid-19, MERS, Ebola Screen *Contact With Person With Highly Contagious Disease Like Ebola/MERS/COVID-19 AND Have One or More of the Symptoms Below : No *Travel to a Country With Wide-Spread Ebola/MERS/COVID-19 in the Past 21 Days AND Have One or More of the Symptoms Below : No COVID-19 Vaccine : Yes Covid-19 External Testing : No *Verify Airborne, Droplet Precautions for MERS/COVID-19 : N/A *Verify Droplet, Contact Precautions for Ebola (Reference for CDC) : N/A Meghna Vences LPN - 03/10/2023 14:47 EDT Summary Weight Measured : 101.3 kg(Converted to: 223 lb 5 Ounces, 223.328 lb) Body Mass Index Measured : 34.97 kg/m2 Weight in Pounds : 222.86 lb Systolic Blood Pressure : 92 mmHg Diastolic Blood Pressure : 48 mmHg (LOW) Blood Pressure Location : Left arm Blood Pressure Position : Sitting O2 Sat Resting/Exertion Alpha : Resting Peripheral Pulse Rate : 64 bpm Respiratory Rate : 20 br/min SpO2 : 94 % Oxygen Flow Rate : 3 L/min Temperature Oral : 36.5 DegC(Converted to: 97.7 DegF) Pain Present : No actual or suspected pain Vangie TENORIO Meghnaeren Bee 03/10/2023 14:57 EDT Chief Complaint : follow up chronic care, had medicare wellness today Preferred Lab : [facility] Preferred Rad : [facility] Patient Counseled : Nutrition, Physical activity Height in Inches : 67 in Height/Length Measured : 170.2 cm(Converted to: 5 ft 7 in, 67.01 in) Meghna Vences LPN 03/10/2023 14:47 EDT Depression Screening Little Interest, Pleasure in Activities (ref) : Not at all Feeling Down, Depressed, Hopeless : Not at all Initial Depression Screening Score : 0 Depression Screening Result : Negative Meghna Vences LPN 03/10/2023 14:57 EDT Procedures / Surgeries - Procedure History (As Of: 03/10/2023 14:59:01 EDT) Procedure Dt/Tm: 10/23/2011 ; Anesthesia Minutes: 0 ; Procedure Name: cysto/ud, bilateral RG Pyelogram ; Procedure Minutes: 0 ; Last Reviewed Dt/Tm: 03/10/2023 14:48:04 EDT Anesthesia Minutes: 0 ; Procedure Name: Placement of stent in cardiac conduit ; Procedure Minutes: 0 ; Comments: 09/02/2019 13:05 EST - Kal HIGGINS, Sheila A 2x ; Last Reviewed Dt/Tm: 03/10/2023 14:48:04 EDT Anesthesia Minutes: 0 ; Procedure Name: Cataract care ; Procedure Minutes: 0 ; Last Reviewed Dt/Tm: 03/10/2023 14:48:04 EDT Social History FT Social History (As Of: 03/10/2023 14:59:01 EDT) Alcohol: Denies Alcohol Use Household alcohol concerns: No. (Last Updated: 03/10/2023 14:24:35 EDT by Puneet Mcelroy) Tobacco: Former smoker, quit more than 30 days ago Tobacco Use:. Cigarettes, Household tobacco concerns: No. Comments: 03/10/2023 14:25 - Puneet Mcelroy: quit 1993 (Last Updated: 03/10/2023 14:48:12 EDT by Meghna Vences LPN) Former smoker, quit more than 30 days ago Tobacco Use:. (Last Updated: 09/19/2020 13:08:59 EST by Margaret De Anda) Family History Family History (As Of: 03/10/2023 14:48:35 EDT) Negative History Delatorre Fall Risk History of Fall in Last 3 Months Delatorre : No Presence of Secondary Diagnosis Delatorre : No Use of Ambulatory Aid Delatorre : None, bedrest, wheelchair, nurse IV/Heparin Lock Fall Risk Delatorre : No Gait Weak or Impaired Fall Risk Delatorre : Normal, bedrest, immobile Mental Status Fall Risk Delatorre : Oriented to own ability Delatorre Fall Risk Score : 0 Meghna Vences LPN - 03/10/2023 14:47 EDT Social Determinants (PRAPARE) What is your housing situation today? : I have housing You or Family Gone Without Household Needs Past Year : No No Transport to Med Appts/Meetings/Work/Meds /Necessities : No Afraid of Partner or Ex-partner in the Past Year : No Meghna Vences LPN - 03/10/2023 14:47 EDT Review of Systems PHQ Score Initial Depression Screen Score: 0 Physical Exam Vitals & Measurements HR: 50(Peripheral) BP: 100/50 SpO2: 99% HT: 170 cm HT: 67 in WT: 101 kg WT: 222.2 lb BMI: 34.95 Assessment/Plan 1. Annual visit for general adult medical examination without abnormal findings (Z00.00: Encounter for general adult medical examination without abnormal findings) The patient was given a customized and personalized print out of all the current AHRQ USPSTF?s recommendations for preventative services and all current CDC recommended immunizations, relevant risk recommendations and the following patient brochures were given. Reviewed Medicare preventative services checklist. CDC-Falls Prevention and home safety screening reviewed. Patient denies any falls in last 12 months, voices no worry about falling, exhibits no problems with sitting, standing, or ambulating with his walker. Pt voices understanding with keep (more content not included)... Normal [facility] Comment on above: Result Comment: Elec tronically Signed By: Álvaro Barton MD\.br\Date and Time Signed: 03/13/23 12:59 EDT\.br\Electronically Co-Signed By: Puneet Mcelroy\.br\Date and Time Co-Signed: 03/10/23 15:23 EDT Consenton 03-12-2023 Consent [id number]: 127 Normal [facility] Physician Orderon 03-12-2023 Physician Order [id number]: 127 Normal [facility] .Manual Abson 03-11-2023 Basophils/Leukocyte s Manual cnt (Bld) [Pure # fraction] 0.0 E9/L Normal 0.0-0.2 [facility] Comment on above: Performed By: #### 3 6890095, 0170498, 6279372, 6215430, 79850434 #### [facility] [address] [place] [address] Eosinophils/Leukocy jorge Manual cnt (Bld) [Pure # fraction] 0.1 E9/L Normal 0.0-0.5 [facility] Comment on above: Performed By: #### 3 3316150, 4158071, 9103914, 3665900, 28122397 #### [facility] [address] [place] [address] Lymphocytes/Leukocy jorge Manual cnt (Bld) [Pure # fraction] 1.4 E9/L Normal 1.0-4.0 [facility] Comment on above: Performed By: #### 3 5144232, 9931181, 4813193, 4029287, 57838072 #### [facility] [address] [place] [address] Monocytes/Leukocyte s Manual cnt (Bld) [Pure # fraction] 0.3 E9/L Normal 0.2-1.0 [facility] Comment on above: Performed By: #### 3 8320182, 2371014, 1019514, 5177937, 54319314 #### [facility] [address] [place] [address] Neutrophils/Leukocy jorge Auto (Bld) [Pure # fraction] 3.4 E9/L Normal 2.0-7.5 [facility] Comment on above: Performed By: #### 3 2733788, 1578138, 2459446, 5102692, 33767118 #### [facility] [address] [place] [address] BB Draw & Holdon 03-11-2023 BB D&H Sample drawn for Blo od Ba Normal [facility] Comment on above: Performed By: #### 3 9124354, 0446440, 2102020, 2975251, 01690247 ####[facility] [address] [place] [address] CBC w/ Auto Diffon Erythrocyte distribution width (RBC) [Ratio] 30.8 % High 10.9-14.2 [facility] Comment on above: Performed By: #### 3 5249122, 4764246, 4511079, 7329720, 16432036 #### [facility] [address] [place] [address] Hematocrit (Bld) [Volume fraction] 19.7 % Low 37.7-49.0 [facility] Comment on above: Performed By: #### 3 3784260, 7945016, 9430623, 2696400, 44427982 #### [facility] [address] [place] [address] Hemoglobin (Bld) [Mass/Vol] 6.7 g/dL Abnormal 13.5-17.5 [facility] Comment on above: Result Comment: Resu lts Called To Angle Mendoza/ NANCY By GISELA And Read Back For Confirmation On 03/11/2023 17:00:17 EDT Results Verified By Repeat Analysis Performed By: #### 3 2000988, 8371257, 1484770, 4314346, 13443368 #### [facility] [address] [place] [address] MCH (RBC) [Entitic mass] 35.7 pg High 27.0-34.0 [facility] Comment on above: Performed By: #### 3 5209656, 1514315, 5734460, 2469187, 54401116 #### [facility] [address] [place] [address] MCHC (RBC) [Mass/Vol] 33.9 g/dL Normal 31.4-36.0 [facility] Comment on above: Performed By: #### 3 7195758, 9056573, 8044011, 2322085, 53462396 #### [facility] [address] [place] [address] MCV (RBC) [Entitic vol] 105.3 fL High 80.0-100.0 [facility] Comment on above: Performed By: #### 3 4610335, 7453210, 4444066, 0333193, 33260989 #### [facility] [address] [place] [address] Platelet mean volume (Bld) [Entitic vol] 12.4 fL High 6.4-10.8 [facility] Comment on above: Performed By: #### 3 9115809, 9628434, 0473943, 8002377, 65233051 #### [facility] [address] [place] [address] Platelets (Bld) [#/Vol] 93.0 E9/L Low 150.0-500.0 [facility] Comment on above: Performed By: #### 3 2645381, 6860075, 8786564, 8213194, 52810481 #### [facility] [address] [place] [address] RBC (Bld) [#/Vol] 1.9 E12/L Low 4.3-5.9 [facility] Comment on above: Performed By: #### 3 0508734, 8830785, 1071235, 6705793, 93045323 #### [facility] [address] [place] [address] WBC corrected for nucl RBC Auto (Bld) [#/Vol] 5.8 E9/L Normal 4.0-11.0 [facility] Comment on above: Performed By: #### 3 8669674, 5553630, 2784533, 2095488, 92731927 #### [facility] [address] [place] [address] CMPon 03-11-2023 Albumin [Mass/Vol] 3.9 g/dL Normal 3.3-5.0 [facility] Comment on above: Performed By: #### 2 950391535, 8752871840, 0206030, 3466616869, 1727623247, 526760311, 0626905, 4659345977, 4722676, 2123634, 0454228, 6305593172, 6357623, 5390255, 9219183, 68893295, 1231953, 788958389, 1378916646, 92065519, 4018702, 9919602, 3503564849 ####[facility] [address] [place] [address] Albumin/Globulin (S) [Mass conc ratio] 1.1 Normal 1.1-2.2 [facility] Comment on above: Performed By: #### 2 616284290, 2546495792, 2412127, 5470523037, 9815698555, 118637871, 6310230, 4014104802, 8620277, 3646054, 9979674, 4963161375, 6858039, 4202132, 8222508, 53779333, 8527635, 613727327, 0869226513, 53967681, 5607085, 5418288, 3678493693 ####[address] [place] [address] ALP [Catalytic activity/Vol] 72 Int._Unit/L Normal 21-98 [facility] Comment on above: Performed By: #### 2 753816899, 1045433029, 3443897, 8498073391, 0669578550, 964081372, 6717988, 2398305169, 4989876, 6411886, 7643971, 2535757799, 4366443, 0393296, 5954108, 63423829, 6585964, 819614954, 8855939773, 42469679, 1529029, 5044390, 1214027857 ####[address] [place] [address] ALT No additional P-5'-P [Catalytic activity/Vol] 96 Int._Unit/L High 6-46 [facility] Comment on above: Performed By: #### 2 583236725, 2229056631, 2383026, 2251472717, 7975527166, 359708758, 7647561, 5618559308, 8768563, 9798729, 1802412, 5413046958, 5162344, 5377689, 1074115, 39862195, 7216335, 213008719, 1754041034, 85675360, 5951103, 8848089, 7100078905 ####[address] [place] [address] Anion gap [Moles/Vol] 13 mmol/L Normal 6-16 [facility] Comment on above: Performed By: #### 2 788605383, 6916788963, 2022563, 5095818426, 6283187720, 378344791, 7875371, 8382867474, 9545529, 1910615, 7478504, 3784876012, 8518856, 7246405, 7694319, 26027063, 6482931, 479708431, 7004838654, 00656952, 8027308, 0391654, 5113659080 ####[address] [place] [address] AST [Catalytic activity/Vol] 39 Int._Unit/L Normal 5-43 [facility] Comment on above: Performed By: #### 2 551185281, 6140445108, 7712032, 9642267799, 0554746861, 158654836, 3234457, 1469657545, 1919622, 4799616, 5816180, 4984996496, 9634022, 5789634, 6336649, 18560357, 0968404, 428239232, 9121076439, 50073419, 5787773, 9283818, 9480290866 ####[address] [address] Bilirubin [Mass/Vol] 0.7 mg/dL Normal 0.0-1.1 [facility] Comment on above: Performed By: #### 2 371607631, 5857443589, 1281184, 4737215779, 4899998345, 589318022, 2539038, 2729934595, 1118492, 3248867, 2818948, 4061921315, 4195475, 7558058, 8037835, 77970790, 5290391, 023474657, 8068493816, 68710997, 2410985, 2555159, 9572621899 ####[address] [place] [address] Calcium [Mass/Vol] 9.5 mg/dL Normal 8.9-11.1 [facility] Comment on above: Performed By: #### 2 627114896, 3245048687, 1273778, 5585785943, 3613698273, 585556606, 1615455, 3718608339, 1701153, 8433703, 3732979, 1262155992, 2568517, 6848905, 3296544, 70589877, 9800301, 496207896, 5877781049, 02236554, 5540318, 2609237, 4170920565 ####[facility] [address] [place] [address] Chloride [Moles/Vol] 102 mmol/L Normal 101-111 [facility] Comment on above: Performed By: #### 2 920476101, 7510256022, 2195737, 2133895819, 2001460071, 716815662, 2524839, 4006608436, 3952451, 0983709, 7220904, 8231761027, 3855080, 3040228, 6576509, 79129265, 6488704, 990364842, 8718978066, 19111255, 8457776, 9814504, 2460629380 ####[facility] [address] [place] [address] CO2 [Moles/Vol] 32 mmol/L High 21-31 [facility] Comment on above: Performed By: #### 2 613684923, 5331055424, 2121739, 6197125019, 7346203687, 120763103, 0228014, 8198793938, 9304031, 8450284, 6158686, 1101268938, 3337823, 5708711, 7292069, 50065897, 1393714, 408097417, 4668957071, 46871316, 4417458, 2433722, 4224184130 ####[facility] [address] [place] [address] Creatinine [Mass/Vol] 1.9 mg/dL High 0.5-1.3 [facility] Comment on above: Performed By: #### 2 237866484, 2778820208, 8434485, 3103273005, 7546543627, 965947734, 6561136, 8573601488, 7038395, 7149117, 1187136, 3863993741, 0119229, 7734244, 8235932, 55798930, 3369283, 450505596, 9929906510, 27194622, 8833614, 2951812, 2835424323 ####[facility] [address] [place] [address] Globulin (S) [Mass/Vol] 3.5 g/dL Normal 1.4-4.0 [facility] Comment on above: Performed By: #### 2 716211240, 1353999209, 0469524, 1411090078, 4428342072, 384969290, 2227777, 6044710809, 3403760, 4273245, 2370292, 6232754279, 6419820, 7998664, 0933028, 01172935, 1966119, 482191616, 3689216486, 19580370, 3363421, 8494487, 8918168474 ####[facility] [address] [place] [address] Glucose [Mass/Vol] 181 mg/dL Normal 55-199 [facility] Comment on above: Result Comment: If t his glucose result represents a fasting glucose, interpretation should refer to the following reference range: 55-99 mg/dL Performed By: #### 2 224651904, 4137656142, 7768783, 1924702761, 1391569212, 270408343, 7530122, 2757149730, 2587476, 3892181, 3021969, 9348939504, 7879363, 2053382, 9563303, 72874753, 3161922, 335547712, 1303876060, 40956301, 2029968, 1877792, 9588469589 ####[facility] [address] [place] [address] Potassium [Moles/Vol] 4.7 mmol/L Normal 3.5-5.3 [facility] Comment on above: Performed By: #### 2 356698367, 2771461314, 8197325, 3069017684, 7203673595, 405081040, 2502691, 7907449985, 0273594, 9875346, 1388248, 4344292336, 2217326, 9716783, 9869512, 05637290, 2468724, 007246514, 9043374179, 09231913, 4144528, 8788566, 7391568846 ####[facility] [address] [place] [address] Protein [Mass/Vol] 7.4 g/dL Normal 6.0-7.8 [facility] Comment on above: Performed By: #### 2 441230982, 2453165475, 3243861, 0370636372, 5377392960, 791946204, 7584616, 6027255116, 5705374, 5175710, 7610958, 4333864765, 6041611, 4759439, 0032209, 22160163, 8527718, 742418211, 4445357714, 81792592, 7772040, 3908524, 3188599499 ####[address] [place] [address] Sodium [Moles/Vol] 142 mmol/L Normal 135-145 [facility] Comment on above: Performed By: #### 2 122330406, 6333588317, 7598964, 0237587293, 8309034208, 347556766, 9321013, 0508189685, 9028843, 9757254, 3665799, 8038422098, 9750338, 9388404, 9249891, 56405295, 7884527, 011480706, 2777980150, 94144727, 7939023, 5476002, 2814943254 ####[facility] [address] [place] [address] Urea nitrogen [Mass/Vol] 60 mg/dL High 5-21 [facility] Comment on above: Performed By: #### 2 859255103, 3235435933, 1622668, 1378433695, 1709495384, 588253268, 5439171, 4978716876, 6229386, 0842433, 7846780, 5170602388, 1690709, 6334708, 2860274, 72114587, 5052080, 601085642, 8189684833, 34238919, 7193851, 2548960, 8234158420 ####[facility] [address] [place] [address] Urea nitrogen/Creatinine [Mass ratio] 32 No Units High 10-20 [facility] Comment on above: Performed By: #### 2 229587183, 0822849112, 9941135, 2401317371, 3868016871, 681511985, 3793773, 0357681851, 7868517, 0153347, 9419297, 1160364231, 7550117, 2408566, 0157263, 48128187, 5476079, 597057437, 2428329182, 98312787, 5840890, 0571290, 8440766387 ####[facility] [address] [place] [address] Consent for Treatmenton 02-25 Consent for Treatment [id number]: 127 Normal [facility] Consent for Treatment [id number]: 127 Normal [facility] Ferritinon 03-11-2023 Ferritin [Mass/Vol] 3583 ng/mL High 24-336 [facility] Comment on above: Result Comment: NORM ALS MEN <30 YRS 16-132 ng/mL MEN >30 YRS 8-338 ng/mL WOMEN (PREMEN) 6-104 ng/mL WOMEN (POSTMEN) 12-210 ng/mL Performed By: #### 2 177989893, 7479543048, 3997833, 6302357940, 1690873259, 296615690, 5626891, 1966173071, 7740131, 7169516, 3228993, 2807390000, 4616984, 7896558, 7775318, 60220012, 9052601, 291435768, 2010689834, 68406109, 8175062, 4872575, 7885115641 ####[address] [place] [address] Folateon 03-11-2023 Folate [Mass/Vol] 11.6 ng/mL Normal >=6.7 [facility] Comment on above: Performed By: #### 2 910143899, 4105423076, 4817074, 2639710509, 3679409591, 294189301, 7156090, 3202826304, 6805222, 1673584, 6295263, 7478807189, 0855830, 1466522, 0282115, 95394505, 1052353, 980776941, 1113384843, 76886151, 9140407, 0004311, 5944190981 ####[address] [place] [address] Ironon 03-11-2023 Iron [Mass/Vol] 267 microgram/dL High 35-153 [facility] Comment on above: Performed By: #### 2 214378921, 6265436179, 3972717, 4813133200, 7987868824, 144203467, 2022779, 2725572380, 7970335, 8973297, 2359802, 5806685494, 5840873, 0072593, 9884357, 53742974, 7988042, 822516973, 3465530477, 61577265, 1128356, 0634961, 3652698149 ####[address] [address] Iron Saturationon 03-11-2023 Iron binding capacity [Mass/Vol] 294 microgram/dL Normal 250-400 [facility] Comment on above: Performed By: #### 2 159515560, 1565267593, 7619040, 1486172694, 5369100149, 753524783, 7904287, 1276535888, 3473939, 0427288, 5725630, 0325949861, 3992476, 8004334, 9600911, 11916120, 8871217, 399894202, 3049593715, 42518050, 2487110, 2529662, 6247695089 ####[facility] [address] [place] [address] Iron saturation [Mass fraction] 91 % High 20-50 [facility] Comment on above: Performed By: #### 2 491972575, 6815223223, 0816590, 8898939214, 3797281586, 516491410, 8818833, 9129551434, 5201921, 4910638, 6547987, 6603340463, 6763215, 7316534, 8726317, 77064165, 1215411, 286091279, 9941818892, 50129472, 0309640, 8501296, 4836934354 ####[facility] [address] [place] [address] LDHon 03-11-2023 LDH [Catalytic activity/Vol] 211 Int._Unit/L Normal 93-218 [facility] Comment on above: Performed By: #### 2 356559719, 9027056416, 8713908, 1025402133, 9905328707, 626126147, 3426646, 3898929118, 4047108, 1254913, 6394102, 7134878685, 2220651, 0817100, 4854573, 69124953, 5084719, 056682303, 5797923599, 78139648, 6972208, 3296836, 8058338858 ####[facility] [address] [place] [address] Manual Diffon 03-11-2023 Anisocytosis Ql (Bld) Present Normal [facility] Comment on above: Order Comment: Order Added by Discern Expert. Performed By: #### 3 7544386, 3245621, 0355052, 0435701, 02288052 #### [facility] [address] [place] [address] Band form neutrophils/100 WBC (Bld) 9 % Normal 0-10 [facility] Comment on above: Order Comment: Order Added by Discern Expert. Performed By: #### 3 4445760, 5998500, 7815794, 5138638, 65514819 #### [facility] [address] [place] [address] Basophils/100 WBC (Bld) 0 % Normal 0-2 [facility] Comment on above: Order Comment: Order Added by Discern Expert. Performed By: #### 3 7857849, 2078056, 7464321, 7737779, 67233128 #### [facility] [address] [place] [address] Eosinophils/100 WBC (Bld) 1 % Normal 0-8 [facility] Comment on above: Order Comment: Order Added by Ronaldo Expert. Performed By: #### 3 6988834, 3640692, 9999866, 8409909, 80110459 #### [facility] [address] [place] [address] Hypochromia Auto Ql (Bld) Present Normal [facility] Comment on above: Order Comment: Order Added by Ronaldo Expert. Performed By: #### 3 7309436, 6376736, 1660380, 4531370, 90937988 #### [facility] [address] [place] [address] Lymphocytes/100 WBC (Bld) 25 % Normal 14-50 [facility] Comment on above: Order Comment: Order Added by Ronaldo Expert. Performed By: #### 3 [id number], [id number], [id number], [id number], [id number] #### [facility] [address] [place] [address] Macrocytes Ql (Bld) Present Normal [facility] Comment on above: Order Comment: Order Added by Ronaldo Expert. Performed By: #### 3 [id number], [id number], [id number], [id number], [id number] #### [facility] [address] [place] [address] Metamyelocytes/Leuk ocytes Manual cnt (Bld) [Pure # fraction] 2 % High <=0 [facility] Comment on above: Order Comment: Order Added by Discern Expert. Performed By: #### 3 [id number], [id number], [id number], 0491028, [id number] #### [facility] [address] [place] [address] Monocytes/100 WBC (Bld) 6 % Normal 4-14 [facility] Comment on above: Order Comment: Order Added by Discern Expert. Performed By: #### 3 [id number], [id number], 3099609, 8736906, [id number] #### [facility] [address] [place] [address] Morphology Edmundo (Bld) [Interp] See Morphology Normal [facility] Comment on above: Order Comment: Order Added by Discern Expert. Result Comment: Resu lts are consistent with previous path review performed on 01-06-23. Reviewed by MA. Performed By: #### 3 [id number], [id number], [id number], [id number], [id number] #### [facility] [address] [place] [address] Myelocytes/100 WBC (Bld) 7 % High <=0 [facility] Comment on above: Order Comment: Order Added by Discern Expert. Performed By: #### 3 [id number], [id number], 8571379, 1749728, [id number] #### [facility] [address] [place] [address] Platelets Large LM Ql (Bld) Present Normal [facility] Comment on above: Order Comment: Order Added by Discern Expert. Performed By: #### 3 [id number], 6983954, 2793825, 6940389, [id number] #### [facility] [address] [place] [address] Segmented neutrophils/100 WBC (Bld) 50 % Normal 36-75 [facility] Comment on above: Order Comment: Order Added by Discern Expert. Performed By: #### 3 [id number], 9599927, 2077170, 2022212, [id number] #### [facility] [address] [place] [address] Variant lymphocytes LM Ql (Bld) 0 % Normal <=0 [facility] Comment on above: Order Comment: Order Added by Discern Expert. Performed By: #### 3 [id number], 8417231, 2362261, 9291228, [id number] #### [facility] [address] [place] [address] Oncology Noteon 03-11-2023 Oncology Note Oncology Callisthenics Instructor Office Visit/Treatment Note Current Patient Status/Reason: Patient here with spouse for Initial Clinic Visit. I accompanied Dr. Lu in room. Medical history reviewed. Patient was diagnosed with MDS and received CC/[place] Vidaza. Patient had BMB 08/2021. Patient was signed on with [facility] but then quit [facility]. Patient is on home/portable oxygen. Patient with pancytopenia. 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 Faria/[facility] [phone]. Treatment Plan: labs to be done today, Appt with Dr. Mercer, weekly CBC & BB hold to be done at [facility], every 3 week CMP,LDH to be done at [facility], transfusion standing order faxed to [facility] Follow-Up Appointment Info/Referrals: 6 weeks Resources Offered: Contact information provided to patient. Patient is stage 4 kidney disease and ejection fraction of 20% Normal [facility] Comment on above: Result Comment: Elec tronically Signed By: Tuan HEALY, Angle Amos\.etienne\Date and Time Signed: 03/11/23 17:03 EDT Oncology Progress Noteon Oncology Progress Note Patient: SANDIP BROUSSARD Age: 82 years Sex: Male : 1940 Associated Diagnoses: None Author: Tabitha SEN, Jose Alvarenga Chief Complaint Cytopenia, I progressed and high-grade MDS, anemia of chronic kidney disease most recently iron overload after history of iron deficiency anemia History of Present Illness Sandip is an 82-year-old nice gentleman who has multiple comorbidities including but not limited to high-grade MDS with excess blasts last blast count was 4% based on the bone marrow biopsy done in March 2022, chronic kidney disease stage IV, anemia of chronic kidney disease, history initially of iron deficiency and then later with multiple packed RBC transfusion became iron overload, history of GI blood loss seen on capsule endoscopy and epistaxis and history of congestive heart failure with left ventricular ejection fraction of 20% and history of myocardial infarction, diabetes mellitus hyperlipidemia and hypertension who was referred back by his primary care physician to our oncology and hematology service for opinion evaluation and 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 Patient was taken out of hospice after he was deemed not a candidate for any further chemotherapy or treatment by [facility] hematology oncology here in [facility]. Patient and his Lissette wanted second opinion as they accept palliative but not hospice care. Patient was initially diagnosed with MDS and anemia of chronic kidney disease in 2019 initial bone marrow biopsy and aspirate done on 06/05/2020 revealed morphologic features suspicious for myelodysplastic syndrome with hypercellular bone marrow 60% with trilineage hematopoiesis and dysmetric area paresis. Markedly decreased iron stained and pancytopenia in the peripheral smear. He was started on IV iron and no Cipro every 2 weeks. With persistent cytopenia eventually was started on 5 days a low-dose see if pancytopenia and fatigue improved on that. Unfortunately he suffered from an acute [place] on 11/23/2021 and developed another GI bleed. He was transfused several RBCs and managed to get his catheterization. 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 He was requiring packed RBC transfusion every 3 to 4 weeks and eventually was deemed not a responsive to 5 days and was seen by Dr. Esposito at [facility]. He was getting blood transfusion for hemoglobin less than 8.0 due to his congestive heart failure history. He had another bone marrow biopsy on 04/25/2022 which showed myeloid neoplasm with dysplastic features and 4% blast persistent BX. 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 Patient was tried on iron aspirin, Procrit, and most recently Luspatercept subcu every 3 week from August 2022. After he was deemed not responsive to Luspatercept as well in November 2022 and was placed on hospice but his did not want to keep him on hospice as they wanted to continue blood transfusion and blood work. Hospice was going to stop all the blood work and transfusion as well as his medications. Therefore he was sent to our hematology clinic to be managed for the above-mentioned problems. He was getting also B12 and IM injection every 3 weeks at the [facility]. Treatment to date: 1. Intermittent IV iron 2. Aranesp and Retacrit 80,000 units every week. 3. 07/09/2021 till 04/08/2022 by days at day 1 through 5 every 28 days which failed was worsening pancytopenia as well. 4. May 20, 2023 2 till August 28, 2022 low-dose decitabine weekly which failed also. 5. Luspatercept every 3 weeks from September 19 06 Dec 2022 Patient denies any bleeding from any source denies any melena or gross hematuria or hemoptysis. He has shortness of breath from his congestive heart failure and he is on continuous oxygen via nasal cannula at 3 L. Comprehending of the discussion and not in acute distress currently during the visit. We will leg edema. And otherwise no other complaints or issues. Review of Systems Constitutional: Negative. Eye: Negative. Ear/Nose/Mouth/Throat: Negative. Respiratory: Shortness of breath. Cardiovascular: Negative. Gastrointestinal: Negative. Genitourinary: Negative. Hematology/Lymphatics: Negative. Endocrine: Negative. Immunologic: Negative. Musculoskeletal: Negative. Integumentary: Negative. Neurologic: Alert and oriented X4. Psychiatric: Negative. ROS reviewed as documented in chart Health Status Allergies: Allergic Reactions (Selected) Severity Not Documented Carvedilol- Hives. Metoprolol- Hives. Current medications: Home Medications (18) Active aspirin 81 mg Oral EC Tab 81 mg = 1 tab(s), Oral, BID atorvastatin 20 mg Tab 20 mg = 1 tab(s), Oral, Daily bumetanide 2 mg Tab 2 mg = 1 tab(s), Oral, BID colchicine 0.6 (more content not included)... Normal [facility] Patient Educationon 03-11-20 Patient Education Normal [facility] Physician Orderon 03-11-2023 Physician Order [id number]#[id number] :127 Normal [facility] Physician Order [id number]#[id number] :127 Normal [facility] Physician Order [id number]#1.00CD :127 Normal [facility] Retic Counton 03-11-2023 Reticulocytes/100 RBC (Bld) 0.7 % Normal 0.5-1.5 [facility] Comment on above: Result Comment: This Reticulocyte Count Has Been Corrected For Anemia Performed By: #### 3 [id number], [id number], 3178836, 3258454, 85745322 #### [facility] [address] [place] [address] Screenson 03-11-2023 Screens [id number]#[id number]: 127 Normal [facility] Transferrinon 03-11-2023 Transferrin [Mass/Vol] 210 mg/dL Normal 200-370 [facility] Comment on above: Performed By: #### 2 [id number], [id number], 6784934, [id number], [id number], 235365154, 1256916, 0417476628, 6659434, 7172149, 0041351, [id number], 2909155, 3493719, 1124194, 51044789, 9048630, 923902201, 9606527014, 55005644, 2654261, 5552880, [id number] ####[facility] [address] [place] [address] UA With Cult Reflexon 2022 Bilirubin Ql (U) Negative Normal Negative [facility] Comment on above: Order Comment: micro hematuria Performed By: #### 1 [id number] #### [facility] [address] [place] [address] Clarity (U) CLEAR Normal Clear [facility] Comment on above: Order Comment: micro hematuria Performed By: #### 1 [id number] #### [facility] [address] [place] [address] Color (U) STRAW Abnormal Yellow [facility] Comment on above: Order Comment: micro hematuria Performed By: #### 1 [id number] #### [facility] [address] [place] [address] Epithelial cells.squamous LM.HPF (Urine sed) [#/Area] 0-2 Normal 0-2 [facility] Comment on above: Order Comment: micro hematuria Performed By: #### 1 [id number] #### [facility] [address] [place] [address] Glucose Test strip (U) [Mass/Vol] 2+ Abnormal Negative [facility] Comment on above: Order Comment: micro hematuria Performed By: #### 1 [id number] #### [facility] [address] [place] [address] Hemoglobin Ql (U) Negative Normal Negative [facility] Comment on above: Order Comment: micro hematuria Performed By: #### 1 [id number] #### [facility] [address] [place] [address] Ketones (U) [Mass/Vol] Negative Normal Negative [facility] Comment on above: Order Comment: micro hematuria Performed By: #### 1 [id number] #### [facility] [address] [place] [address] Molino.plasma/Lith ium.RBC (Bld) [Mass ratio] 0-3 Normal 0-3 [facility] Comment on above: Order Comment: micro hematuria Performed By: #### 1 [id number] #### [facility] [address] [place] [address] Nitrite Ql (U) Negative Normal Negative [facility] Comment on above: Order Comment: micro hematuria Performed By: #### 1 [id number] #### [facility] [address] [place] [address] pH (U) 6.0 [pH] Invalid Interpretation Code 5.0-9.0 [facility] Comment on above: Order Comment: micro hematuria Performed By: #### 1 [id number] #### [facility] [address] [place] [address] Protein (U) [Mass/Vol] Negative Normal Negative [facility] Comment on above: Order Comment: micro hematuria Performed By: #### 1 [id number] #### [facility] [address] [place] [address] Specific gravity (U) [Rel density] <=1.005 Invalid Interpretation Code 1.005-1.030 [facility] Comment on above: Order Comment: micro hematuria Performed By: #### 1 5851915 #### [facility] [address] [place] [address] Type of Urine collection method Random Urine Normal [facility] Comment on above: Order Comment: micro hematuria Performed By: #### 1 [id number] #### [facility] [address] [place] [address] Urobilinogen Qn (U) 0.2 {Dav'U}/dL Normal 0.0-1.0 [facility] Comment on above: Order Comment: micro hematuria Performed By: #### 1 [id number] #### [facility] [address] [place] [address] WBC Auto Ql (U) Negative Normal Negative [facility] Comment on above: Order Comment: micro hematuria Performed By: #### 1 [id number] #### [facility] [address] [place] [address] WBC LM.HPF (Urine sed) [#/Area] 0-5 Normal 0-5 [facility] Comment on above: Order Comment: micro hematuria Performed By: #### 1 [id number] #### [facility] [address] [place] [address] Vit B12on 03-11-2023 Cobalamin (Vitamin B12) [Mass/Vol] 457 pg/mL Normal 50-1500 [facility] Comment on above: Performed By: #### 2 [id number], [id number], 9342099, 4559027663, 1846584210, 016257922, 8257254, 7901208914, 8837943, 5235394, 0380994, 7584910010, 8067861, 3274513, 3689352, 20331215, 9635752, 503618509, 6846638469, 05987303, 7817685, 5382855, [id number] ####[facility] [address] [place] [address] eGFRon 03-11-2023 GFR/1.73 sq M.predicted among non-blacks MDRD (S/P/Bld) [Vol rate/Area] 34 mL/min/1.73 m2 Low >=59 [facility] Comment on above: Order Comment: Order added by Discern Expert. Result Comment: Casino Controller charlene kidney disease could be indicated at eGFR's of less than 60 mL/min/1.73m2. Kidney failure is indicated at less than 15 mL/min/1.73m2. Performed By: #### 2 [id number], [id number], 7748458, 7425136400, 1548449816, 613481727, 5968991, 8405029040, 3943051, 3772405, 3233999, 5142217511, 5985536, 0606670, 0497333, 75952779, 5597176, 250476983, 9748660193, 38544156, 3272296, 5885226, [id number] ####[facility] [address] [place] [address] Ambulatory Visit Summaryon 0 03-10-2023 Ambulatory Visit Summary SANDIP BROUSSARD :1940 Visit Date:03/10/2023 Ambulatory Visit Instructions Your Diagnosis Annual visit for general adult medical examination without abnormal findings Chronic systolic congestive heart failure BPH without obstruction/lower urinary tract symptoms AP (angina pectoris) Primary hypertension Class 1 obesity due to excess calories in adult BMI 34.0-34.9,adult Your Care Team Attending Physician - Álvaro Barton MD Primary Care Physician - Álvaro Barton MD This Is Your Medications List Misc Prescription (Freestyle Carmen 2 Flash Glucose Monitoring 14 Day System (Sensor)) Misc Prescription (Freestyle Carmen Flash 2 Glucose Monitoring 14 Day System (Jasper)) Misc Prescription (Misc DME Prescription) aspirin (aspirin 81 mg Oral EC Tab) atorvastatin (atorvastatin 20 mg Tab) bumetanide (bumetanide 2 mg Tab) cholecalciferol (Vitamin D3 1000 intl units oral tablet) colchicine (colchicine 0.6 mg Tab) dapagliflozin (Farxiga 10 mg oral tablet) dexamethasone glipiZIDE (glipiZIDE 5 mg ER Tab) lisinopril (lisinopril 10 mg Tab) metolazone (metolazone 2.5 mg Tab) metoprolol (metoprolol 25 mg ER Tab) omeprazole (omeprazole 40 mg Cap-DR) potassium chloride (Potassium Chloride (Zfp-Xclw-Jtf M20) 20 mEq oral tablet, extended release) spironolactone (spironolactone 25 mg Tab) terazosin (terazosin 5 mg Cap) Procedures Performed cysto/ud, bilateral RG Pyelogram (10/23/2011), Cataract care, Placement of stent in cardiac conduit. Discharge Vitals Heart Rate (Peripheral) 50 Blood Pressure 100/50 Height 170 cm Height 67 in Weight 101 kg Weight 222.2 lb BMI 34.95 What to do next Scheduled Follow-Up Appointments Friday 1:00 PM EDT With: Where: [facility] Friday 2:40 PM EDT With: Álvaro Barton MD Where: [facility] Ambulatory Visit Summary SANDIP BROUSSARD :1940 Visit Date:03/10/2023 Ambulatory Visit Instructions Your Diagnosis Annual visit for general adult medical examination without abnormal findings Chronic systolic congestive heart failure BPH without obstruction/lower urinary tract symptoms AP (angina pectoris) Primary hypertension Class 1 obesity due to excess calories in adult BMI 34.0-34.9,adult Your Care Team Attending Physician - Álvaro Barton MD Primary Care Physician - Álvaro Barton MD This Is Your Medications List Misc Prescription (Freestyle Carmen 2 Flash Glucose Monitoring 14 Day System (Sensor)) Misc Prescription (Freestyle Carmen Flash 2 Glucose Monitoring 14 Day System (Jasper)) Misc Prescription (Misc DME Prescription) aspirin (aspirin 81 mg Oral EC Tab) atorvastatin (atorvastatin 20 mg Tab) bumetanide (bumetanide 2 mg Tab) cholecalciferol (Vitamin D3 1000 intl units oral tablet) colchicine (colchicine 0.6 mg Tab) dapagliflozin (Farxiga 10 mg oral tablet) dexamethasone glipiZIDE (glipiZIDE 5 mg ER Tab) lisinopril (lisinopril 10 mg Tab) metolazone (metolazone 2.5 mg Tab) metoprolol (metoprolol 25 mg ER Tab) omeprazole (omeprazole 40 mg Cap-DR) potassium chloride (Potassium Chloride (Feh-Djuz-Yvp M20) 20 mEq oral tablet, extended release) spironolactone (spironolactone 25 mg Tab) terazosin (terazosin 5 mg Cap) Procedures Performed cysto/ud, bilateral RG Pyelogram (10/23/2011), Cataract care, Placement of stent in cardiac conduit. Discharge Vitals Heart Rate (Peripheral) 50 Blood Pressure 100/50 Height 170 cm Height 67 in Weight 101 kg Weight 222.2 lb BMI 34.95 What to do next Scheduled Follow-Up Appointments Friday 1:00 PM EDT With: Where: Oncology Friday 2:40 PM EDT With: Álvaro Barton MD Where: [facility] Patient Educationon 03-10-20 Patient Education Cardiovascular Angina Angina is discomfort in the chest, neck, arm, jaw, or back. The discomfort is caused by a lack of blood in the middle layer of the heart wall (myocardium). There are four types of angina: ? Stable angina. This is triggered by vigorous activity or exercise. It goes away when you rest or take medicines that treat angina. This is diagnosed if you have had the symptom for more than 2 months. ? Unstable angina. This is a warning sign and can lead to a heart attack. This is a medical emergency. Symptoms come at rest and last a long time. ? Microvascular angina. This affects the small coronary arteries. Symptoms include chest pain, feeling tired, and being short of breath. The symptoms can last a long time or short time. ? Prinzmetal or variant angina. This is caused by a spasm of the arteries that go to your heart. What are the causes? This condition is usually caused by atherosclerosis. This is the buildup of fat and cholesterol (plaque) in your arteries. The plaque may narrow or block the artery. Other causes of angina include: ? Sudden spasms of the muscles of the arteries in the heart. ? Small artery disease (microvascular dysfunction). ? Problems with any of your heart valves. ? A tear in an artery in your heart (coronary artery dissection). ? Weakness of the heart muscle (cardiomyopathy). What increases the risk? You are more likely to develop this condition if you have: ? High cholesterol. ? High blood pressure. ? Diabetes. ? A family history of heart disease. ? A sedentary lifestyle, or a lifestyle in which you do not exercise enough. ? Depression. ? Had radiation treatment to the left side of your chest. Other risk factors include: ? Using tobacco. ? Being obese. ? Eating a diet high in saturated fats. ? Being exposed to high stress or triggers of stress. ? Using drugs, such as cocaine. Women have a greater risk for angina if they: ? Are older than age 55. ? Have gone through menopause. What are the signs or symptoms? Common symptoms of this condition in both men and women may include: ? Chest pain, which may: ? Feel like a crushing or squeezing in the chest, or a tightness, pressure, fullness, or heaviness in the chest. ? Last for more than a few minutes, or stop and come back over a few minutes. ? Pain in the neck, arm, jaw, or back. ? Unexplained heartburn or indigestion. ? Shortness of breath. ? Nausea. ? Sudden cold sweats. Women and people with diabetes may have unusual (atypical) symptoms, such as: ? Fatigue. ? Unexplained feelings of nervousness or anxiety. ? Unexplained weakness. ? Dizziness or fainting. How is this diagnosed? This condition may be diagnosed based on: ? Your symptoms and medical history. ? Electrocardiogram (ECG) to measure the electrical activity in your heart. ? Blood tests. ? Stress test to look for signs of blockage when your heart is stressed. ? CT angiogram to examine your heart and the blood flow to it. ? Coronary angiogram to check for arterial blockage. ? Echocardiogram (ultrasound) to assess the strength of your heartbeat. How is this treated? Angina may be treated with: ? Medicines to: ? Prevent blood clots and heart attack. ? Relax blood vessels and improve blood flow to the heart. ? Reduce blood pressure, improve heart pumping, and relax blood vessels spasms. ? Reduce cholesterol and help treat atherosclerosis. ? A procedure to widen a narrowed or blocked coronary artery (angioplasty). A mesh tube (stent) may be placed in a coronary artery to keep it open. ? Surgery to allow blood to go around a blocked artery (coronary artery bypass surgery). Follow these instructions at home: Medicines ? Take mmcy-uux-bdybeou and prescription medicines only as told by your health care provider. ? Do not take the following medicines unless your health care provider approves: ? NSAIDs, such as ibuprofen or naproxen. ? Vitamin supplements that contain vitamin A, vitamin E, or both. ? Hormone replacement therapy that contains estrogen with or without progestin. Eating and drinking ? Eat a heart-healthy diet. This includes plenty of fresh fruits and vegetables, whole grains, low-fat (lean) protein, and low-fat dairy products. ? Follow instructions from your health care provider about eating or drinking restrictions. Activity ? Follow an exercise program approved by your health care provider. ? Consider joining a cardiac rehabilitation program. ? Take a break when you feel fatigued. Plan rest periods in your daily activities. Lifestyle ? Do not use any products that contain nicotine or tobacco. These products include cigarettes, chewing tobacco, and vaping devices, such as e-cigarettes. If you need help quitting, ask your health care provider. ? If your health care provider says you can dri (more content not included)... Normal [facility] Family Medicine Office/Clini c Noteon 02-17-2023 Family Medicine Office/Clinic Note Chief Complaint ER follow up HPI Staff ER follow up ER followup: [facility]: [facility] Visit date: 02/04/23: pt got 4units of PRBC Symptoms the patient presented with: dizziness/passing out Current concerns: feels good since getting all that blood Hospice had him on senekot, needs a refill initially done by hospice and she fired hospice due to he needed blood and they just said put him to bed and start the process of dying. Needs refills of potassium, metoprolol 1/2 qd, omeprazole, bumetanide,farxiga, glipizide and spriniolactone all 90 day supplies History of Present Illness Sandip Broussard is an 82-year-old male who presents today for a follow-up evaluation. He is accompanied by an adult female. The patient had 4 units of blood transfusion on 02/03/2023 and 02/04/2023. Prior to that, when he had low hemoglobin, he received 1 unit of blood. He was discharged from hospice care since they had unlikely goals for the patient. The cancer treatments never helped improve his status. The patient will need requests for blood transfusion from our office since the patient was discharged from the cancer center. But the patient is unable to present himself here in the office often for blood extraction and testing, as well as transfusion. Previously, he was receiving 1 unit of blood a week when he was under the care of Dr. Pearl. At the moment, he denies having tremors or dizziness. Although, he experiences neck pain. They were advised by Dr. Pearl that the patient has 6 months to live without having blood transfusion. The patient had to discontinue his medications when he was in hospice. Review of Systems PHQ Score Initial Depression Screen Score: 0 Physical Exam Vitals & Measurements T: 37.2 ?C(Oral) HR: 88(Peripheral) RR: 18 BP: 120/56 SpO2: 95% HT: 67 in HT: 170.2 cm WT: 102.4 kg WT: 225.28 lb BMI: 35.35 General: alert, no acute distress, pale Cardiovascular: regular rate and rhythm, normal peripheral perfusion Respiratory: diminished breath sounds bilaterally, O2 on. Extremities: no deformity, no trauma Neurological: oriented x 4, LOC appropriate for age, CN II-XII intact, motor strength equal & normal bilaterally, speech normal Assessment/Plan Total time spent preparing for the encounter, evaluating and assessing the patient, documenting the visit, and ordering appropriate follow-up work was 60 minutes. 1. Hospice care (Z51.5: Encounter for palliative care) The patient is no longer on hospice care as they did not like the goals of care with hospice. Because of this, they have decided to go against hospice. We will remove this from his chart. 2. Pulmonary HTN (I27.20: Pulmonary hypertension, unspecified) The patient continues to need oxygen. No changes with this. 3. Chronic systolic congestive heart failure (I50.22: Chronic systolic (congestive) heart failure) The patient is not in heart failure today. Patient states he is feeling very good. 4. 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 If not, we will have to look for other help in this area. 5. BMI 35.0-35.9,adult (Z68.35: Body mass index [BMI] 35.0-35.9, adult) BMI education given. 6. Class 1 obesity due to excess calories in adult (E66.09: Other obesity due to excess calories) As above. We will see the patient back in 1 month. Portions of this record may have been created with voice recognition artificial intelligence software, specifically [employer], Best Teacher and or oNoise. Substitutions may have occurred due to the inherent limitations of voice recognition and artificial intelligence software. ATTESTATION: Documentation services were performed after patient or guardian consented to allow [employer] to record this visit. [employer] clinical reimbursement specialist and provider reviewed before signing. VIRGEN: Maria Ines Puente. 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 Medications aspirin 81 mg Oral EC Tab, 81 mg= 1 tab(s), Oral, BID atorvastatin 20 mg Tab, Oral, Daily bumetanide 2 mg Tab, 2 mg= 1 tab(s), Oral, BID colchicine 0.6 mg Tab, 0.6 mg= 1 tab(s), Oral, TID Farxiga 10 mg oral tablet, 10 mg= 1 tab(s), Oral, Daily glipiZIDE 5 mg ER Tab, 5 mg= 1 tab(s), Oral, BID lisinopril 10 mg Tab, 10 mg= 1 tab(s), Oral, BID metolazone 2.5 mg Tab, 2.5 (more content not included)... Normal [facility] Comment on above: Result Comment: Elec tronically Signed By: Álvaro Barton MD.br\Date and Time Signed: 02/17/23 12:06 EDT\.br\Electronically Co-Signed By: Maria Ines Puente.br\Date and Time Co-Signed: 02/13/23 18:35 EDT Physician Referralon 023 Physician Referral [id number]#1.00CD :127 Normal [facility] Outside [facility] Correspo ndenceon 02-07-2023 Outside [facility] Correspondence [id number]#[id number]: 127 Normal [facility] Urinalysison 01-11-2023 Bilirubin Ql (U) Negative Normal Negative [facility] Comment on above: Performed By: #### 1 [id number], [id number] ####[facility] [address] [place] [address] Clarity (U) CLEAR Normal Clear [facility] Comment on above: Performed By: #### 1 [id number], [id number] ####[facility] [address] [place] [address] Color (U) YELLOW Normal Yellow [facility] Comment on above: Performed By: #### 1 [id number], [id number] ####[facility] [address] [place] [address] Epithelial cells.squamous LM.HPF (Urine sed) [#/Area] 0-2 Normal 0-2 [facility] Comment on above: Performed By: #### 1 [id number], [id number] ####[facility] [address] [place] [address] Glucose Test strip (U) [Mass/Vol] 3+ Abnormal Negative [facility] Comment on above: Performed By: #### 1 [id number], [id number] ####[facility] [address] [place] [address] Hemoglobin Ql (U) Negative Normal Negative [facility] Comment on above: Performed By: #### 1 [id number], [id number] ####[facility] [address] [place] [address] Ketones (U) [Mass/Vol] Negative Normal Negative [facility] Comment on above: Performed By: #### 1 [id number], [id number] ####[address] [address] Molino.plasma/Lith ium.RBC (Bld) [Mass ratio] 0-3 Normal 0-3 [facility] Comment on above: Performed By: #### 1 [id number], [id number] ####[address] [address] Nitrite Ql (U) Negative Normal Negative [facility] Comment on above: Performed By: #### 1 [id number], [id number] ####[address] [address] pH (U) 6.5 [pH] Invalid Interpretation Code 5.0-9.0 [facility] Comment on above: Performed By: #### 1 [id number], [id number] ####[address] [address] Protein (U) [Mass/Vol] Negative Normal Negative [facility] Comment on above: Performed By: #### 1 [id number], [id number] ####[address] [address] Specific gravity (U) [Rel density] 1.010 Invalid Interpretation Code 1.005-1.030 [facility] Comment on above: Performed By: #### 1 [id number], [id number] ####[address] [address] Type of Urine collection method Clean Catch Normal [facility] Comment on above: Performed By: #### 1 [id number], [id number] ####[address] [address] Urobilinogen Qn (U) 0.2 {Dav'U}/dL Normal 0.0-1.0 [facility] Comment on above: Performed By: #### 1 [id number], [id number] ####[facility] [address] [place] [address] WBC Auto Ql (U) Negative Normal Negative [facility] Comment on above: Performed By: #### 1 [id number], [id number] ####[facility] [address] [place] [address] WBC LM.HPF (Urine sed) [#/Area] 0-5 Normal 0-5 [facility] Comment on above: Performed By: #### 1 [id number], [id number] ####[facility] [address] [place] [address] CHEMISTRYOrdered By: José Luis Cat on 01-10-2023 Albumin DL <= 20 mg/L (U) [Mass/Vol] microgram/mL Normal 0.0 - 19.0 mcg/mL [facility] Remisol Albumin Elph (U) [Mass fraction] 6.1 mg/dL Invalid Interpretation Code [facility] Remisol Creatinine (U) [Mass/Vol] 47.9 mg/dL Invalid Interpretation Code [facility] Remisol U Prot/Creat Ratio 127.30 mg/gm Cr Normal 0.00 - 200.00 mg/gm Cr [facility] Remisol Nurse Consultation Noteon Nurse Consultation Note Physical Exam pt had appointment on 01/06/23 was unable to provide urine sample. Today dropped off urine sample. Assessment/Plan 1. Diabetes (E11.9: Type 2 diabetes mellitus without complications) 2. Hyperlipidemia (E78.5: Hyperlipidemia, unspecified) 3. Hypertension (I10: Essential (primary) hypertension) Medications aspirin 81 mg Oral EC Tab, 81 mg= 1 tab(s), Oral, BID atorvastatin 20 mg Tab, Oral, Daily bumetanide 2 mg Tab, 1 mg= 0.5 tab(s), Oral, BID colchicine 0.6 mg Tab, 0.6 mg= 1 tab(s), Oral, TID Farxiga 10 mg oral tablet, 10 mg= 1 tab(s), Oral, Daily glipiZIDE 5 mg ER Tab, 5 mg= 1 tab(s), Oral, BID lisinopril 10 mg Tab, 10 mg= 1 tab(s), Oral, BID metolazone 2.5 mg Tab, 2.5 mg= 1 tab(s), Oral, Daily metoprolol 25 mg ER Tab, 25 mg= 1 tab(s), Oral, Daily omeprazole 40 mg Cap-DR, 40 mg= 1 cap(s), Oral, Daily Potassium Chloride (Kky-Mofj-Zmw M20) 20 mEq oral tablet, extended release, 20 mEq= 1 tab(s), Oral, BID spironolactone 25 mg Tab, 25 mg= 1 tab(s), Oral, Daily terazosin 5 mg Cap, 5 mg= 1 cap(s), Oral, Daily, 1 refills Vitamin D3 1000 intl units oral tablet, 1000 International_Unit= 1 tab(s), Oral, Daily Allergies metoprolol (hives) Immunizations Vaccine Date Status influenza virus vaccine, inactivated 05/20/2022 Recorded SARS-CoV-2 (COVID-19) mRNA-1273 vaccine 06/29/2021 Recorded influenza virus vaccine, inactivated 05/02/2021 Recorded SARS-CoV-2 (COVID-19) mRNA-1273 vaccine 09/25/2020 Recorded SARS-CoV-2 (COVID-19) mRNA-1273 vaccine 09/14/2020 Recorded SARS-CoV-2 (COVID-19) mRNA-1273 vaccine 08/28/2020 Recorded SARS-CoV-2 (COVID-19) mRNA-1273 vaccine 08/17/2020 Recorded influenza virus vaccine, inactivated 06/23/2019 Recorded influenza virus vaccine, inactivated 05/10/2019 Recorded influenza virus vaccine, inactivated 05/28/2018 Recorded influenza virus vaccine, inactivated 06/18/2015 Recorded pneumococcal 23-valent vaccine 05/08/2014 Recorded influenza virus vaccine, inactivated 05/08/2014 Recorded influenza virus vaccine, inactivated 05/23/2013 Recorded Normal [facility] U Microalbon 01-10-2023 Albumin DL <= 20 mg/L (U) [Mass/Vol] mg/dL Normal 0.0-19.0 [facility] Comment on above: Performed By: #### 1 [id number], [id number] ####[facility] [address] [place] [address] U Protein/Creat Ratioon 12-26 Albumin Elph (U) [Mass fraction] 6.1 mg/dL Invalid Interpretation Code [facility] Comment on above: Result Comment: The reference range and other method performance specifications have not been established for this test; results should be integrated into the clinical context for interpretation. Performed By: #### 1 [id number] ####[address] [place] [address] Creatinine (U) [Mass/Vol] 47.9 mg/dL Invalid Interpretation Code [facility] Comment on above: Result Comment: The reference range and other method performance specifications have not been established for this test; results should be integrated into the clinical context for interpretation. Performed By: #### 1 [id number] ####[address] [place] [address] U Prot/Creat Ratio 127.30 mg/gm Cr Normal .00-200.00 [facility] Comment on above: Performed By: #### 1 [id number] ####[facility] [address] [place] [address] Lab Reportson 01-08-2023 Lab Reports [id number]#1.00CD:1 27 Normal [facility] Lab Reports [id number]#1.00CD: 127 Normal [facility] Lab Reports [id number]#1.00CD:1 27 Normal [facility] Formson 01-07-2023 Forms [id number]#1.00CD: 127 Normal [facility] Path. 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 No increase of schistocytes seen. Invalid Interpretation Code [facility] Comment on above: Order Comment: Order Added by Discern Expert. Performed By: #### 2 [id number], 3892851, [id number], 4814741, [id number], [id number], [id number] ####[facility] [address] [place] [address] Path. 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 No increase of schistocytes seen. D61.818 CPT 17399 Invalid Interpretation Code [facility] Comment on above: Other Comment: Order Added by Discern Expert. Reminderson 01-07-2023 Reminders - From: Brittany Hull DO To: Álvaro Barton MD; Sent: 01/07/2023 12:25:00 EDT Show up: 01/07/2023 12:24:00 EDT Subject: Ambulatory Reminder Due Date/Time: 01/08/2023 12:23:00 EDT just wanted you be aware of pancytopenia Results: Date Result Type Result Name 01/07/2023 9:00 Document - DOC Path Review Normal [facility] Reminders - From: Brittany Hull DO To: Brittany Hull DO; Sent: 01/07/2023 07:51:10 EDT Show up: 01/07/2023 07:51:00 EDT Subject: anemia Due Date/Time: 01/08/2023 07:50:00 EDT already told staff send er rosanna sent message Results: Date Result Name Ind Value Ref Range 01/06/2023 12:01 WBC ((L)) 2.5 E9/L (4.0 - 11.0) 01/06/2023 12:01 RBC ((L)) 1.6 E12/L (4.3 - 5.9) 01/06/2023 12:01 HGB ((!)) 5.9 gm/dL (13.5 - 17.5) 01/06/2023 12:01 Hct ((L)) 18.1 % (37.7 - 49.0) 01/06/2023 12:01 MCV ((H)) 112.5 fL (80.0 - 100.0) 01/06/2023 12:01 MCH ((H)) 36.4 pg (27.0 - 34.0) 01/06/2023 12: MCHC 32.3 gm/dL (31.4 - 36.0) 01/06/2023 12: RDW ((H)) 31.5 % (10.9 - 14.2) 01/06/2023 12: Platelet ((L)) 89.0 E9/L (150.0 - 500.0) 01/06/2023 12: MPV ((H)) 13.2 fL (6.4 - 10.8) 01/06/2023 12: Segs Man 50 % (36 - 75) 01/06/2023 12: Band Man 5 % (0 - 10) 01/06/2023 12: Lymph Man 30 % (14 - 50) 01/06/2023 12: Monocyte Man 7 % (4 - 14) 01/06/2023 12: Eos Man 0 % (0 - 8) 01/06/2023 12: Basophil Man 1 % (0 - 2) 01/06/2023 12: Myelo Man ((H)) 5 % ( - <=0) 01/06/2023 12: React Lymph Man ((H)) 2 % ( - <=0) 01/06/2023 12: Segs Abs Man ((L)) 1.4 E9/L (2.0 - 7.5) 01/06/2023 12: Lymph Abs Man ((L)) 0.8 E9/L (1.0 - 4.0) 01/06/2023 12: Elliott Abs Man 0.2 E9/L (0.2 - 1.0) 01/06/2023 12: Eos Abs Man 0.0 E9/L (0.0 - 0.5) 01/06/2023 12: Basophil Abs Man 0.0 E9/L (0.0 - 0.2) 01/06/2023 12: RBC Morph See Morphology 01/06/2023 12: Anisocytosis Present 01/06/2023 12: Macrocyte Present 01/06/2023 12: Hypochromasia Present 01/06/2023 12: Ovalocytes Present 01/06/2023 12:01 Large Plt Present 01/06/2023 12:01 Glucose Lvl 192 mg/dL (55 - 199) 01/06/2023 12:01 BUN ((H)) 41 mg/dL (5 - 21) 01/06/2023 12:01 Creatinine ((H)) 2.2 mg/dL (0.5 - 1.3) 01/06/2023 12:01 eGFR ((L)) 29 mL/min/1.73 m2 (>=59 - ) 01/06/2023 12:01 BUN/Creat Ratio 19 (10 - 20) 01/06/2023 12:01 Sodium Lvl 141 mmol/L (135 - 145) 01/06/2023 12:01 Potassium Lvl 4.3 mmol/L (3.5 - 5.3) 01/06/2023 12: Chloride 104 mmol/L (101 - 111) 01/06/2023 12: CO2 28 mmol/L (21 - 31) 01/06/2023 12: AGAP 13 mEq/L (6 - 16) 01/06/2023 12:01 Calcium Lvl ((L)) 8.8 mg/dL (8.9 - 11.1) 01/06/2023 12:01 Alk Phos 70 Int._Unit/L (21 - 98) 01/06/2023 12:01 ALT ((H)) 79 Int._Unit/L (6 - 46) 01/06/2023 12:01 AST 25 Int._Unit/L (5 - 43) 01/06/2023 12:01 Total Protein 6.5 gm/dL (6.0 - 7.8) 01/06/2023 12:01 Albumin Lvl ((L)) 3.2 gm/dL (3.3 - 5.0) 01/06/2023 12: Globulin 3.3 gm/dL (1.4 - 4.0) 01/06/2023 12: A/G Ratio ((L)) 1.0 (1.1 - 2.2) 01/06/2023 12:01 Bili Total 0.8 mg/dL (0.0 - 1.1) 01/06/2023 12:01 Hgb A1C % ((H)) 8.1 % ( - <=5.9) Normal [facility] .Manual Abson 01-06-2023 Basophils/Leukocyte s Manual cnt (Bld) [Pure # fraction] 0.0 E9/L Normal 0.0-0.2 [facility] Comment on above: Performed By: #### 2 [id number], [id number], [id number], 9646414, [id number], [id number], [id number] ####[facility] [address] [place] [address] Eosinophils/Leukocy jorge Manual cnt (Bld) [Pure # fraction] 0.0 E9/L Normal 0.0-0.5 [facility] Comment on above: Performed By: #### 2 187066, [id number], [id number], 1371008, [id number], [id number], [id number] ####[address] [address] Lymphocytes/Leukocy jorge Manual cnt (Bld) [Pure # fraction] 0.8 E9/L Low 1.0-4.0 [facility] Comment on above: Performed By: #### 2 109645, 4711746, 64408606, 1157236, 83970722, 05250524, [id number] ####[address] [place] [address] Monocytes/Leukocyte s Manual cnt (Bld) [Pure # fraction] 0.2 E9/L Normal 0.2-1.0 [facility] Comment on above: Performed By: #### 2 425997, 4221201, 43385560, 6403175, 89389045, 39585136, [id number] ####[address] [address] Neutrophils/Leukocy jorge Auto (Bld) [Pure # fraction] 1.4 E9/L Low 2.0-7.5 [facility] Comment on above: Performed By: #### 2 515366, 1537200, 25872564, 4730062, 39423681, 06436230, [id number] ####[facility] [address] [place] [address] Ambulatory Visit Summaryon 0 01-06-2023 Ambulatory Visit Summary SANDIP BROUSSARD :1940 Visit Date:01/06/2023 Ambulatory Visit Instructions Your Diagnosis Hospice care AP (angina pectoris) Diabetes BPH without obstruction/lower urinary tract symptoms Hyperlipidemia Hypertension Renal failure Bone marrow failure Systolic CHF Pulmonary HTN BMI 34.0-34.9,adult Class 1 obesity due to excess calories in adult Your Care Team Attending Physician - Álvaro Barton MD Primary Care Physician - Álvaro Barton MD This Is Your Medications List Contact prescribing physician if questions or concerns aspirin (aspirin 81 mg Oral EC Tab) atorvastatin (atorvastatin 20 mg Tab) bumetanide (bumetanide 2 mg Tab) cholecalciferol (Vitamin D3 1000 intl units oral tablet) colchicine (colchicine 0.6 mg Tab) dapagliflozin (Farxiga 10 mg oral tablet) glipiZIDE (glipiZIDE 5 mg ER Tab) lisinopril (lisinopril 10 mg Tab) metolazone (metolazone 2.5 mg Tab) metoprolol (metoprolol 25 mg ER Tab) omeprazole (omeprazole 40 mg Cap-DR) potassium chloride (Potassium Chloride (Qzc-Fxiy-Hbg M20) 20 mEq oral tablet, extended release) spironolactone (spironolactone 25 mg Tab) terazosin (terazosin 5 mg Cap) Procedures Performed cysto/ud, bilateral RG Pyelogram (10/23/2011), Cataract care, Placement of stent in cardiac conduit. Discharge Vitals Heart Rate (Peripheral) 60 Respiratory Rate 20 Blood Pressure 148/82 Height 170.2 cm Height 67 in Weight 98.6 kg Weight 216.92 lb BMI 34.04 What to do next Scheduled Follow-Up Appointments Friday 2:00 PM EDT With: Where: [facility] Normal [address] [place] [address]- \.br\ Medications\.br\ What How Much When Instructions\.br \ Unchanged aspirin (aspirin 81 mg Oral EC Tab) 1 Tablets By Mouth 2 times a day Contact prescribing physician if questions or concerns \.br\ Unchanged atorvastatin (atorvastatin 20 mg Tab) By Mouth Every day Contact prescribing physician if questions or concerns \.br\ Unchanged bumetanide (bumetanide 2 mg Tab) 0.5 Tablets By Mouth 2 times a day Contact prescribing physician if questions or concerns \.br\ Unchanged cholecalciferol (Vitamin D3 1000 intl units oral tablet) 1 Tablets By Mouth Every day Contact prescribing physician if questions or concerns \.br\ Unchanged colchicine (colchicine 0.6 mg Tab) 1 Tablets By Mouth 3 times a day Contact prescribing physician if questions or concerns \.br\ Unchanged dapagliflozin (Farxiga 10 mg oral tablet) 1 Tablets By Mouth Every day Contact prescribing physician if questions or concerns \.br\ Unchanged glipiZIDE (glipiZIDE 5 mg ER Tab) 1 Tablets By Mouth 2 times a day Contact prescribing physician if questions or concerns \.br\ Unchanged lisinopril (lisinopril 10 mg Tab) 1 Tablets By Mouth 2 times a day Contact prescribing physician if questions or concerns \.br\ Unchanged metolazone (metolazone 2.5 mg Tab) 1 Tablets By Mouth Every day Contact prescribing physician if questions or concerns \.br\ Unchanged metoprolol (metoprolol 25 mg ER Tab) 1 Tablets By Mouth Every day Contact prescribing physician if questions or concerns \.br\ Unchanged omeprazole (omeprazole 40 mg Cap-DR) 1 Capsules By Mouth Every day Contact prescribing physician if questions or concerns \.br\ Unchanged potassium chloride (Potassium Chloride (Uah-Nphz-Enh M20) 20 mEq oral tablet, extended release) 1 Tablets By Mouth 2 times a day Contact prescribing physician if questions or concerns \.br\ Unchanged spironolactone (spironolactone 25 mg Tab) 1 Tablets By Mouth Every day Contact prescribing physician if questions or concerns \.br\ Unchanged terazosin (terazosin 5 mg Cap) 1 Capsules By Mouth Every day Contact prescribing physician if questions or concerns \.br\ Allergies\.br\ metoprolol (hives)\.br\ Problems\.br\ Ongoing - Any problem that you are currently receiving treatment for.\.br\ AP (angina pectoris)\.br\ Bone marrow failure\.br\ BPH without obstruction/lowe r urinary tract symptoms\.br\ Diabetes\.br\ Follicular impetigo\.br\ Hospice care\.br\ Hyperlipidemia\. br\ Hypertension\.br \ Kidney cysts\.br\ Microscopic hematuria\.br\ Pulmonary HTN\.br\ Renal failure\.br\ Systolic CHF\.br\ Urge incontinence\.br \ Urinary urgency\.br\ Education Materials\.br\ BMI for Adults\.br\ What is BMI?\.br\ Body mass index (BMI) is a number that is calculated from a person's weight and height. BMI can help estimate how much of a person's weight is composed of fat. BMI does not measure body fat directly. Rather, it is an alternative to procedures that directly measure body fat, which can be difficult and expensive.\.br\ BMI can help identify people who may be at higher risk for certain medical problems.\.br\ What are BMI measurements used for?\.br\ BMI is used as a screening tool to identify possible weight problems. It helps determine whether a person is obese, overweight, a healthy weight, or underweight.\.br \ BMI is useful for:\.br\ ? \.br\ Identifying a weight problem that may be related to a medical condition or may increase the risk for medical problems.\.br\ ? \.br\ Promoting changes, such as changes in diet and exercise, to help reach a healthy weight. BMI screening can be repeated to see if these changes are working.\.br\ How is BMI calculated?\.br\ BMI involves measuring your weight in relation to your height. Both height and weight are measured, and the BMI is calculated from those numbers. This can be done either in [place] or metric measurements. Note that charts and online BMI calculators are available to help you find your BMI quickly and easily without having to do these calculations yourself.\.br\ To calculate your BMI in [place] measurements:\.b r\ \.br\ 1. \.br\ Measure your weight in pounds (lb).\.br\ 2. \.br\ Multiply the number of pounds by 703.\.br\ ? \.br\ For example, for a person who weighs 180 lb, multiply that number by 703, which equals 126,540.\.br\ 3. \.br\ Measure your height in inches. Then multiply that number by itself to get a measurement called inches squared. \.br\ ? \.br\ For example, for a person who is 70 inches tall, the inches squared measurement is 70 inches x 70 inches, which equals 4,900 inches squared.\.br\ 4. \.br\ Divide the total from step 2 (number of lb x 703) by the total from step 3 (inches squared): 126,540 ? 4,900 = 25.8. This is your BMI.\.br\ To calculate your BMI in metric measurements:\.b r\ 1. \.br\ Measure your weight in kilograms (kg).\.br\ 2. \.br\ Measure your height in meters (m). Then multiply that number by itself to get a measurement called meters squared. \.br\ ? \.br\ For example, for a person who is 1.75 m tall, the meters squared measurement is 1.75 m x 1.75 m, which is equal to 3.1 meters squared.\.br\ 3. \.br\ Divide the number of kilograms (your weight) by the meters squared number. In this example: 70 ? 3.1 = 22.6. This is your BMI.\.br\ What do the results mean?\.br\ BMI charts are used to identify whether you are underweight, normal weight, overweight, or obese. The following guidelines will be used:\.br\ ? \.br\ Underweight: BMI less than 18.5.\.br\ ? \.br\ Normal weight: BMI between 18.5 and 24.9.\.br\ ? \.br\ Overweight: BMI between 25 and 29.9.\.br\ ? \.br\ Obese: BMI of 30 or above.\.br\ Keep these notes in mind:\.br\ ? \.br\ Weight includes both fat and muscle, so someone with a muscular build, such as an athlete, may have a BMI that is higher than 24.9. In cases like these, BMI is not an accurate measure of body fat.\.br\ ? \.br\ To determine if excess body fat is the cause of a BMI of 25 or higher, further assessments may need to be done by a health care provider.\.br\ ? \.br\ BMI is usually interpreted in the same way for men and women.\.br\ Where to find more information\.br\ For more information about BMI, including tools to quickly calculate your BMI, go to these websites:\.br\ ? \.br\ Centers for Disease Control and Prevention: www.cdc.gov\.br\ ? \.br\ [place] [employer]: www.heart.org\.b r\ ? \.br\ National Heart, Lung, and Blood [place]: www.nhlbi.nih.go v\.br\ Summary\.br\ ? \.br\ Body mass index (BMI) is a number that is calculated from a person's weight and height.\.br\ ? \.br\ BMI may help estimate how much of a person's weight is composed of fat. BMI can help identify those who may be at higher risk for certain medical problems.\.br\ ? \.br\ BMI can be measured using [place] measurements or metric measurements.\.b r\ ? \.br\ BMI charts are used to identify whether you are underweight, normal weight, overweight, or obese.\.br\ This information is not intended to replace advice given to you by your health care provider. Make sure you discuss any questions you have with your health care provider.\.br\ Document Revised: 04/05/2020 Document Reviewed: 02/11/2020 [employer] Patient Education ? 2022 [employer].\.br\ \.br\ [facility] Ambulatory Visit Summary ANNE MARIESANDIP TAN Brynn :1940 Visit Date:01/06/2023 Ambulatory Visit Instructions Your Diagnosis Hospice care AP (angina pectoris) Diabetes BPH without obstruction/lower urinary tract symptoms Hyperlipidemia Hypertension Renal failure Bone marrow failure Systolic CHF Pulmonary HTN BMI 34.0-34.9,adult Class 1 obesity due to excess calories in adult Your Care Team Attending Physician - Álvaro Barton MD Primary Care Physician - Álvaro Barton MD This Is Your Medications List aspirin (aspirin 81 mg Oral EC Tab) atorvastatin (atorvastatin 20 mg Tab) bumetanide (bumetanide 2 mg Tab) cholecalciferol (Vitamin D3 1000 intl units oral tablet) colchicine (colchicine 0.6 mg Tab) dapagliflozin (Farxiga 10 mg oral tablet) glipiZIDE (glipiZIDE 5 mg ER Tab) lisinopril (lisinopril 10 mg Tab) metolazone (metolazone 2.5 mg Tab) metoprolol (metoprolol 25 mg ER Tab) omeprazole (omeprazole 40 mg Cap-) potassium chloride (Potassium Chloride (Jpx-Lqjw-Aab M20) 20 mEq oral tablet, extended release) spironolactone (spironolactone 25 mg Tab) terazosin (terazosin 5 mg Cap) Procedures Performed cysto/ud, bilateral RG Pyelogram (10/23/2011), Cataract care, Placement of stent in cardiac conduit. Discharge Vitals Heart Rate (Peripheral) 60 Respiratory Rate 20 Blood Pressure 148/82 Height 170.2 cm Height 67 in Weight 98.6 kg Weight 216.92 lb BMI 34.04 What to do next Scheduled Follow-Up Appointments Friday 2:40 PM EDT With: Mick SEN, Álvaro Davies Where: [facility] [place] Normal [facility] CBC w/ Auto Diffon 3 Erythrocyte distribution width (RBC) [Ratio] 31.5 % High 10.9-14.2 [facility] Comment on above: Performed By: #### 2 155038, 5479453, 56630634, 4522828, 89921440, 98295216, 139159069 ####[facility] [address] [place] [address] Hematocrit (Bld) [Volume fraction] 18.1 % Low 37.7-49.0 [facility] Comment on above: Performed By: #### 2 170383, 4693869, 01697994, 3661610, 07149176, 42493159, 852130249 ####[facility] [address] [place] [address] Hemoglobin (Bld) [Mass/Vol] 5.9 g/dL Abnormal 13.5-17.5 [facility] Comment on above: Result Comment: Resu lts Called To dr sparks By And Read Back For Confirmation On 01/06/2023 19:53:45 EDT. Performed By: #### 2 036803, 7678998, 44036860, 1574209, 57140944, 47365438, 941428883 ####[address] [place] [address] MCH (RBC) [Entitic mass] 36.4 pg High 27.0-34.0 [facility] Comment on above: Performed By: #### 2 912738, 2582807, 66704959, 2528584, 25939441, 00416116, 488732998 ####[address] [place] [address] MCHC (RBC) [Mass/Vol] 32.3 g/dL Normal 31.4-36.0 [facility] Comment on above: Performed By: #### 2 720368, 6368592, 52136395, 5344171, 71171208, 66622209, 925628839 ####[address] [address] MCV (RBC) [Entitic vol] 112.5 fL High 80.0-100.0 [facility] Comment on above: Performed By: #### 2 455165, 7254856, 33802976, 4485853, 35008328, 65235113, 454722383 ####[address] [place] [address] Platelet mean volume (Bld) [Entitic vol] 13.2 fL High 6.4-10.8 [facility] Comment on above: Performed By: #### 2 574851, 8987119, 54882682, 2680495, 48727841, 60742634, 372361670 ####[address] [place] [address] Platelets (Bld) [#/Vol] 89.0 E9/L Low 150.0-500.0 [facility] Comment on above: Performed By: #### 2 651543, 1495632, 92542969, 6139568, 49565678, 57234230, 372259009 ####[facility] [address] [place] [address] RBC (Bld) [#/Vol] 1.6 E12/L Low 4.3-5.9 [facility] Comment on above: Performed By: #### 2 530365, 9652601, 12046516, 3173601, 54665555, 30002243, 369697472 ####[address] [place] [address] WBC corrected for nucl RBC Auto (Bld) [#/Vol] 2.5 E9/L Low 4.0-11.0 [facility] Comment on above: Performed By: #### 2 147753, 7640343, 27185956, 6584498, 82132280, 25615970, 876829705 ####[address] [address] CMPon 01-06-2023 Albumin [Mass/Vol] 3.2 g/dL Low 3.3-5.0 [facility] Comment on above: Performed By: #### 2 125919, 1927696, 95373804, 2443450, 00835327, 72959661, 197205428 ####[address] [place] [address] Albumin/Globulin (S) [Mass conc ratio] 1.0 Low 1.1-2.2 [facility] Comment on above: Performed By: #### 2 441254, 6687412, 56361303, 7727167, 76080964, 41174419, 372890018 ####[address] [place] [address] ALP [Catalytic activity/Vol] 70 Int._Unit/L Normal 21-98 [facility] Comment on above: Performed By: #### 2 484031, 0175380, 90359021, 4477650, 14355944, 00274881, 915778102 ####[facility] [address] [place] [address] ALT No additional P-5'-P [Catalytic activity/Vol] 79 Int._Unit/L High 6-46 [facility] Comment on above: Performed By: #### 2 593984, 1187699, 06427302, 8536596, 17684186, 43279293, 800459910 ####[facility] [address] [place] [address] Anion gap [Moles/Vol] 13 mmol/L Normal 6-16 [facility] Comment on above: Performed By: #### 2 064016, 3351935, 28170544, 0229857, 30591087, 89665572, 044957465 ####[facility] [address] [place] [address] AST [Catalytic activity/Vol] 25 Int._Unit/L Normal 5-43 [facility] Comment on above: Performed By: #### 2 277970, 7173537, 26129750, 1962082, 40026511, 72283481, 323822133 ####[facility] [address] [place] [address] Bilirubin [Mass/Vol] 0.8 mg/dL Normal 0.0-1.1 [facility] Comment on above: Performed By: #### 2 151125, 2891407, 41671191, 5379861, 06108699, 24772207, 676786022 ####[facility] [address] [place] [address] Calcium [Mass/Vol] 8.8 mg/dL Low 8.9-11.1 [facility] Comment on above: Performed By: #### 2 190550, 8778644, 27237900, 4997194, 43115085, 14278013, 924322433 ####[facility] [address] [place] [address] Chloride [Moles/Vol] 104 mmol/L Normal 101-111 [facility] Comment on above: Performed By: #### 2 062746, 4362793, 15256152, 4010985, 36242583, 44143135, 714901234 ####[facility] [address] [place] [address] CO2 [Moles/Vol] 28 mmol/L Normal 21-31 [facility] Comment on above: Performed By: #### 2 672213, 5683589, 58260669, 2280359, 61361135, 21585764, 593749943 ####[facility] [address] [place] [address] Creatinine [Mass/Vol] 2.2 mg/dL High 0.5-1.3 [facility] Comment on above: Performed By: #### 2 402548, 1069827, 91773286, 1719743, 20803438, 16396572, 459171011 ####[facility] [address] [place] [address] Globulin (S) [Mass/Vol] 3.3 g/dL Normal 1.4-4.0 [facility] Comment on above: Performed By: #### 2 851086, 2518007, 57408735, 3723908, 26977126, 28012615, 566918925 ####[facility] [address] [place] [address] Glucose [Mass/Vol] 192 mg/dL Normal 55-199 [facility] Comment on above: Result Comment: If t his glucose result represents a fasting glucose, interpretation should refer to the following reference range: 55-99 mg/dL Performed By: #### 2 325288, 0761493, 24183869, 4397962, 63216856, 23523127, 189751354 ####[facility] [address] [place] [address] Potassium [Moles/Vol] 4.3 mmol/L Normal 3.5-5.3 [facility] Comment on above: Performed By: #### 2 026937, 8545255, 30199906, 3893186, 05938379, 38867846, 272290699 ####[facility] [address] [place] [address] Protein [Mass/Vol] 6.5 g/dL Normal 6.0-7.8 [facility] Comment on above: Performed By: #### 2 486788, 3588155, 69461724, 6587427, 36790609, 06270015, 665642250 ####[facility] [address] [place] [address] Sodium [Moles/Vol] 141 mmol/L Normal 135-145 [facility] Comment on above: Performed By: #### 2 633316, 9892949, 00115043, 9422025, 45843557, 50140366, 125324982 ####[facility] [address] [place] [address] Urea nitrogen [Mass/Vol] 41 mg/dL High 5-21 [facility] Comment on above: Performed By: #### 2 124679, 9426546, 60423686, 8139631, 87005804, 71233843, 845632099 ####[facility] [address] [place] [address] Urea nitrogen/Creatinine [Mass ratio] 19 No Units Normal 10-20 [facility] Comment on above: Performed By: #### 2 977676, 1316059, 65759643, 0502938, 41266023, 44369153, 308832997 ####[facility] [address] [place] [address] Family Medicine Office/Clini c Noteon 01-06-2023 Family Medicine Office/Clinic Note Chief Complaint establish care HPI Staff establish care needs refills History of Present Illness CHF WITH ASCVD, DEVEASED EF, FEELING TIRED, NO PND OR ORTHOPNEA AND SWELLING IS BETTER. 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 Was getting venofer infusion when low History of Present Illness - Here to establish care with me. - Pt is on 3L of O2 2/2 pulm HTN, CHF. - [facility] is cardiology - No Pulm Doc - Hematology is not on board for his mylodisplatic disorder. - Renal Failure- Asymptomatic at this time. Review of Systems PHQ Score Initial Depression Screen Score: 1 Physical Exam Vitals & Measurements HR: 60(Peripheral) RR: 20 BP: 148/82 SpO2: 99% HT: 67 in HT: 170.2 cm WT: 98.6 kg WT: 216.92 lb BMI: 34.04 General: alert, no acute distress, on o2 ENMT: oral mucosa moist, Cardiovascular: regular rate and rhythm, normal peripheral perfusion Respiratory: Lungs CTA, respirations non labored Extremities: no deformity, no trauma, No edema Neurological: oriented x 4, LOC appropriate for age, CN II-XII intact, motor strength equal & normal bilaterally, speech normal Assessment/Plan 1. Hospice care (Z51.5: Encounter for palliative care) - Discussed hospice care. - Discussed what Hospice care means. - Discussed patient goals Ordered: CBC w/ Auto Diff Comprehensive Metabolic Panel HgbA1c Lab Specimen Collect [id number] Microalbumin Level Urine U Protein/Creat Ratio 2. AP (angina pectoris) (I20.9: Angina pectoris, unspecified) - No chest pain. Ordered: CBC w/ Auto Diff Comprehensive Metabolic Panel HgbA1c Lab Specimen Collect 19590 Microalbumin Level Urine U Protein/Creat Ratio 3. Diabetes (E11.9: Type 2 diabetes mellitus without complications) - Will check A1c. - Will relax requirements as the patient is on hospice. Ordered: CBC w/ Auto Diff Comprehensive Metabolic Panel HgbA1c Lab Specimen Collect 51012 Microalbumin Level Urine U Protein/Creat Ratio 4. 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 Ordered: CBC w/ Auto Diff Comprehensive Metabolic Panel HgbA1c Lab Specimen Collect 97816 Microalbumin Level Urine U Protein/Creat Ratio 5. Hyperlipidemia (E78.5: Hyperlipidemia, unspecified) - Will have the patient stop taking his cholesterol meds. Ordered: CBC w/ Auto Diff Comprehensive Metabolic Panel HgbA1c Lab Specimen Collect 81286 Microalbumin Level Urine U Protein/Creat Ratio 6. Hypertension (I10: Essential (primary) hypertension) - Slightly elevated at this time. Will recheck. Ordered: CBC w/ Auto Diff Comprehensive Metabolic Panel HgbA1c Microalbumin Level Urine U Protein/Creat Ratio 7. Renal failure (N19: Unspecified kidney failure) - Will recheck labs today as a one time. Ordered: CBC w/ Auto Diff Comprehensive Metabolic Panel HgbA1c Microalbumin Level Urine U Protein/Creat Ratio 8. 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 Ordered: CBC w/ Auto Diff Comprehensive Metabolic Panel HgbA1c Microalbumin Level Urine U Protein/Creat Ratio 9. Systolic CHF (I50.20: Unspecified systolic (congestive) heart failure) - Stable - Sees Cardiology. - No issues today. - On O2. Ordered: CBC w/ Auto Diff Comprehensive Metabolic Panel HgbA1c Microalbumin Level Urine U Protein/Creat Ratio 10. Pulmonary HTN (I27.20: Pulmonary hypertension, unspecified) - Stable - 3L baseline Ordered: CBC w/ Auto Diff Comprehensive Metabolic Panel HgbA1c Microalbumin Level Urine U Protein/Creat Ratio 11. BMI 34.0-34.9,adult (Z68.34: Body mass index [BMI] 34.0-34.9, adult) - BMI education given Ordered: Body Mass Index (BMI) documented 3008F CBC w/ Auto Diff Comprehensive Metabolic Panel Current tobacco non-user 1036F Depression Screening Negative 3352F HgbA1c Influenza immunization administered or previously received 4274F Microalbumin Level Urine Most recent diastolic blood pressure 80-89 mm Hg 3079F Most recent systolic blood pressure >= 140 mm Hg 3077F Patient screen for fall risk: no falls in last year or 1 fall with no injury in last year 1101F U Protein/Creat Ratio 12. Class 1 obesity due to excess calories in adult (E66.09: Other obesity due to excess calories) - As above. Ordered: Body Mass Index (BMI) documented 3008F CBC w/ Auto Diff Comprehensive Metabolic Panel Current tobacco non-user 1036F Depression Screening Negative 3352F HgbA1c Influenza immunization administered or previo (more content not included)... Normal [facility] Comment on above: Result Comment: Elec tronically Signed By: Mick SEN, Álvaro Leija.br\Date and Time Signed: 01/06/23 12:30 EDT [id number] 01-06-2023 HbA1c (Bld) [Mass fraction] 8.1 % High <=5.9 [facility] Comment on above: Performed By: #### 2 821187, 0142231, 80884096, 5220122, 64021018, 86443447, 181440278 ####[facility] [address] [place] [address] Manual Diffon 01-06-2023 Anisocytosis Ql (Bld) Present Normal [facility] Comment on above: Order Comment: Order Added by Discern Expert. Performed By: #### 2 116269, 4821173, 73452939, 7468372, 81200558, 61735893, 562821921 ####[facility] [address] [place] [address] Band form neutrophils/100 WBC (Bld) 5 % Normal 0-10 [facility] Comment on above: Order Comment: Order Added by Discern Expert. Performed By: #### 2 643197, 5757572, 58746821, 6676317, 07702853, 91934452, 704104497 ####[facility] [address] [place] [address] Basophils/100 WBC (Bld) 1 % Normal 0-2 [facility] Comment on above: Order Comment: Order Added by Discern Expert. Performed By: #### 2 713299, 6142442, 78694633, 3851271, 76551318, 07935114, 738037760 ####[facility] [address] [place] [address] Eosinophils/100 WBC (Bld) 0 % Normal 0-8 [facility] Comment on above: Order Comment: Order Added by Discern Expert. Performed By: #### 2 714931, 0132030, 87302705, 7604102, 76087413, 90977659, 873219588 ####[facility] [address] [place] [address] Hypochromia Auto Ql (Bld) Present Normal [facility] Comment on above: Order Comment: Order Added by Discern Expert. Performed By: #### 2 806819, 6480700, 91301713, 7933331, 04361684, 56360756, 975139411 ####[facility] [address] [place] [address] Lymphocytes/100 WBC (Bld) 30 % Normal 14-50 [facility] Comment on above: Order Comment: Order Added by Discern Expert. Performed By: #### 2 757615, 9776219, 43612899, 4175897, 07424058, 83676209, 332815030 ####[facility] [address] [place] [address] Macrocytes Ql (Bld) Present Normal [facility] Comment on above: Order Comment: Order Added by Discern Expert. Performed By: #### 2 403173, 6312676, 85204104, 1378870, 16133430, 94654487, 501563257 ####[facility] [address] [place] [address] Monocytes/100 WBC (Bld) 7 % Normal 4-14 [facility] Comment on above: Order Comment: Order Added by Discern Expert. Performed By: #### 2 032158, 5787433, 13089766, 0523452, 31985952, 58302233, 942382358 ####[facility] [address] [place] [address] Morphology Edmundo (Bld) [Interp] See Morphology Normal [facility] Comment on above: Order Comment: Order Added by Discern Expert. Performed By: #### 2 016059, 9121367, 46954702, 5275416, 19727410, 85507460, 451339956 ####[facility] [address] [place] [address] Myelocytes/100 WBC (Bld) 5 % High <=0 [facility] Comment on above: Order Comment: Order Added by Ronaldo Expert. Performed By: #### 2 243487, 3276272, 24246471, 6053011, 63765656, 17733763, 081558421 ####[facility] [address] [place] [address] Ovalocytes LM Ql (Bld) Present Normal [facility] Comment on above: Order Comment: Order Added by Ronaldo Expert. Performed By: #### 2 177217, 3270343, 20500904, 6943449, 84079274, 05398188, 352157580 ####[facility] [address] [place] [address] Platelets Large LM Ql (Bld) Present Normal [facility] Comment on above: Order Comment: Order Added by Ronaldo Expert. Performed By: #### 2 995760, 1951305, 05654275, 1938668, 31753584, 52929116, 634729975 ####[facility] [address] [place] [address] Segmented neutrophils/100 WBC (Bld) 50 % Normal 36-75 [facility] Comment on above: Order Comment: Order Added by Ronaldo Expert. Performed By: #### 2 814909, 7643411, 27114844, 7071510, 47410954, 84139251, 563864970 ####[facility] [address] [place] [address] Variant lymphocytes LM Ql (Bld) 2 % High <=0 [facility] Comment on above: Order Comment: Order Added by Ronaldo Expert. Performed By: #### 2 987618, 9123993, 17919254, 6524423, 59072714, 86298494, 053473176 ####[facility] [address] [place] [address] Patient Educationon 01-07-20 23 Patient Education Nutrition BMI for Adults What is BMI? Body mass index (BMI) is a number that is calculated from a person's weight and height. BMI can help estimate how much of a person's weight is composed of fat. BMI does not measure body fat directly. Rather, it is an alternative to procedures that directly measure body fat, which can be difficult and expensive. BMI can help identify people who may be at higher risk for certain medical problems. What are BMI measurements used for? BMI is used as a screening tool to identify possible weight problems. It helps determine whether a person is obese, overweight, a healthy weight, or underweight. BMI is useful for: ? Identifying a weight problem that may be related to a medical condition or may increase the risk for medical problems. ? Promoting changes, such as changes in diet and exercise, to help reach a healthy weight. BMI screening can be repeated to see if these changes are working. How is BMI calculated? BMI involves measuring your weight in relation to your height. Both height and weight are measured, and the BMI is calculated from those numbers. This can be done either in [place] or metric measurements. Note that charts and online BMI calculators are available to help you find your BMI quickly and easily without having to do these calculations yourself. To calculate your BMI in [place] measurements: 1. Measure your weight in pounds (lb). 2. Multiply the number of pounds by 703. ? For example, for a person who weighs 180 lb, multiply that number by 703, which equals 126,540. 3. Measure your height in inches. Then multiply that number by itself to get a measurement called inches squared. ? For example, for a person who is 70 inches tall, the inches squared measurement is 70 inches x 70 inches, which equals 4,900 inches squared. 4. Divide the total from step 2 (number of lb x 703) by the total from step 3 (inches squared): 126,540 ? 4,900 = 25.8. This is your BMI. To calculate your BMI in metric measurements: 1. Measure your weight in kilograms (kg). 2. Measure your height in meters (m). Then multiply that number by itself to get a measurement called meters squared. ? For example, for a person who is 1.75 m tall, the meters squared measurement is 1.75 m x 1.75 m, which is equal to 3.1 meters squared. 3. Divide the number of kilograms (your weight) by the meters squared number. In this example: 70 ? 3.1 = 22.6. This is your BMI. What do the results mean? BMI charts are used to identify whether you are underweight, normal weight, overweight, or obese. The following guidelines will be used: ? Underweight: BMI less than 18.5. ? Normal weight: BMI between 18.5 and 24.9. ? Overweight: BMI between 25 and 29.9. ? Obese: BMI of 30 or above. Keep these notes in mind: ? Weight includes both fat and muscle, so someone with a muscular build, such as an athlete, may have a BMI that is higher than 24.9. In cases like these, BMI is not an accurate measure of body fat. ? To determine if excess body fat is the cause of a BMI of 25 or higher, further assessments may need to be done by a health care provider. ? BMI is usually interpreted in the same way for men and women. Where to find more information For more information about BMI, including tools to quickly calculate your BMI, go to these websites: ? Centers for Disease Control and Prevention: www.cdc.gov ? [employer] [place] [employer]: www.heart.org ? National Heart, Lung, and Blood [place]: www.nhlbi.nih.gov Summary ? Body mass index (BMI) is a number that is calculated from a person's weight and height. ? BMI may help estimate how much of a person's weight is composed of fat. BMI can help identify those who may be at higher risk for certain medical problems. ? BMI can be measured using [place] measurements or metric measurements. ? BMI charts are used to identify whether you are underweight, normal weight, overweight, or obese. This information is not intended to replace advice given to you by your health care provider. Make sure you discuss any questions you have with your health care provider. Document Revised: 04/05/2020 Document Reviewed: 02/11/2020 [employer] Patient Education ? 2022 [employer] Normal [facility] eGFRon 01-06-2023 GFR/1.73 sq M.predicted among non-blacks MDRD (S/P/Bld) [Vol rate/Area] 29 mL/min/1.73 m2 Low >=59 [facility] Comment on above: Order Comment: Order added by Discern Expert. Result Comment: Casino Controller charlene kidney disease could be indicated at eGFR's of less than 60 mL/min/1.73m2. Kidney failure is indicated at less than 15 mL/min/1.73m2. Performed By: #### 2 053829, 0437439, 10041692, 0594241, 51403983, 31035885, 717857240 ####[facility] [address] [place] [address] Lab Reportson 12-26-2022 Lab Reports [id number]: 127 Normal [facility] Lab Reportson 12-11-2022 Lab Reports [id number]: 127 Normal [facility] CBC AUTO DIFFon 12-10-2022 BASO # 0.0 103/ul Normal 0.0-0.1 [facility] Comment on above: Performed By: #### H H #### [facility] [address] [place] [address] Dr. Benito To Basophils/100 WBC (Bld) 0.5 % Normal 0.2-2.0 [facility] Comment on above: Performed By: #### H H #### [facility] [address] [place] [address] Dr. Benito To EO # 0.0 103/ul Normal 0.0-0.7 [facility] Comment on above: Performed By: #### H H #### [facility] [address] [place] [address] Dr. Benito To Eosinophils/100 WBC (Bld) 0.9 % Normal 0.9-7.0 [facility] Comment on above: Performed By: #### H H #### [facility] [address] [place] [address] Dr. Benito To Erythrocyte distribution width (RBC) [Ratio] 26.4 % Critically high 11.0-15.0 [facility] Comment on above: Performed By: #### H H #### [facility] [address] [place] [address] Dr. Benito To Hematocrit (Bld) [Volume fraction] 25.0 % Critically low 42.0-54.0 [facility] Comment on above: Performed By: #### H H #### [facility] [address] [address] [address] Benito To Hemoglobin (Bld) [Mass/Vol] 8.1 g/dL Critically low 14.0-18.0 [facility] Comment on above: Performed By: #### H H #### [facility] [address] [address] [address] Benito To IG # 0.11 10e3/ul Critically high 0.00-0.03 [facility] Comment on above: Performed By: #### H H #### [facility] [address] [place] [address] Dr. Benito To IG % 5.0 % Critically high 0.0-0.5 [facility] Comment on above: Performed By: #### H H #### [facility] [address] [place] [address] Dr. Benito To LYMPH # 0.7 103/ul Critically low 1.2-3.8 [facility] Comment on above: Performed By: #### H H #### [facility] [address] [place] [address] Dr. Benito To Lymphocytes/100 WBC (Bld) 29.9 % Normal 20.5-60.0 [facility] Comment on above: Performed By: #### H H #### [facility] [address] [place] [address] Dr. Benito To MANUAL DIFF REQ NO Normal [facility] Comment on above: Performed By: #### H H #### [facility] [address] [place] [address] Dr. Benito To MCH (RBC) [Entitic mass] 33.2 pg Normal 25.9-34.0 [facility] Comment on above: Performed By: #### H H #### [facility] [address] [place] [address] Dr. Benito To MCHC (RBC) [Mass/Vol] 32.4 g/dL Normal 29.9-35.2 [facility] Comment on above: Performed By: #### H H #### [facility] [address] [place] [address] Dr. Benito To MCV (RBC) [Entitic vol] 102.5 fL Critically high 80.0-94.0 [facility] Comment on above: Performed By: #### H H #### [facility] [address] [place] [address] Dr. Benito To MONO # 0.3 103/ul Normal 0.3-0.8 [facility] Comment on above: Performed By: #### H H #### [facility] [address] [place] [address] Dr. Benito To Monocytes/100 WBC (Bld) 14.5 % Critically high 1.7-12.0 [facility] Comment on above: Performed By: #### H H #### [facility] [address] [place] [address] Dr. Benito To NEUT # 1.1 103/ul Critically low 1.4-6.5 [facility] Comment on above: Performed By: #### H H #### [facility] [address] [place] [address] Dr. Benito To Neutrophils/100 WBC (Bld) 49.2 % Normal 43.0-75.0 [facility] Comment on above: Performed By: #### H H #### [facility] [address] [place] [address] Dr. Benito To Platelet mean volume (Bld) [Entitic vol] 14.4 fL Critically high 9.5-13.5 [facility] Comment on above: Performed By: #### H H #### [facility] [address] [place] [address] Dr. Benito To PLT 121 103/ul Critically low 150-450 [facility] Comment on above: Performed By: #### H H #### [facility] [address] [place] [address] Dr. Benito To RBC 2.44 106/ul Critically low 4.70-6.10 [facility] Comment on above: Performed By: #### H H #### [facility] [address] [address] [address] Benito To WBC 2.2 103/ul Critically low 4.0-11.0 [facility] Comment on above: Performed By: #### H H #### [facility] [address] [address] [address] Benito To Lab Reportson 12-04-2022 Lab Reports [id number]: 127 Normal [facility] PRBC LEUKOREDUCEDon 12-05-19 23 ABO and Rh group Nom (Bld) Cross Match Result Compatible Unit Blood Type A Pos Unit Number [id number] Status Information Issued Product ID Red Blood Cells Product Code [id number] Issue Date/Time [id number] Normal [facility] Comment on above: Performed By: #### P RBC, TNS #### [facility] [address] [place] [address] Dr. Benito To Ambulatory Visit Summaryon 0 12-03-2022 Ambulatory Visit Summary SANDIP BROUSSARD :1940 Visit Date:12/03/2022 Ambulatory Visit Instructions Your Diagnosis Acute combined systolic and diastolic heart failure Myelodysplastic syndrome Anemia Renal failure Your Care Team Attending Physician - FLASH PEARL MD Primary Care Physician - FLASH PEARL MD This Is Your Medications List aspirin (aspirin 81 mg Oral EC Tab) atorvastatin (atorvastatin 20 mg Tab) bumetanide (bumetanide 2 mg Tab) cholecalciferol (Vitamin D3 1000 intl units oral tablet) colchicine (colchicine 0.6 mg Tab) dapagliflozin (Farxiga 10 mg oral tablet) glipiZIDE (glipiZIDE 5 mg ER Tab) lisinopril (lisinopril 10 mg Tab) metolazone (metolazone 2.5 mg Tab) metoprolol (metoprolol 25 mg ER Tab) omeprazole (omeprazole 40 mg Chandrakant-) potassium chloride (Potassium Chloride (Tun-Khev-Zam M20) 20 mEq oral tablet, extended release) spironolactone (spironolactone 25 mg Tab) terazosin (terazosin 5 mg Cap) Procedures Performed cysto/ud, bilateral RG Pyelogram (10/23/2011), Cataract care, Placement of stent in cardiac conduit. Discharge Vitals Heart Rate (Peripheral) 60 Respiratory Rate 24 Blood Pressure 124/78 Height 170.2 cm Height 67 in Weight 93.5 kg Weight 205.7 lb BMI 32.28 What to do next Scheduled Follow-Up Appointments Friday 10:40 AM EDT With: Mick SEN, Álvaro Davies Where: [facility] CBC AUTO DIFFon 12-03-2022 BASO # 0.0 103/ul Normal 0.0-0.1 [facility] Comment on above: Performed By: #### T NS, PRBC #### [facility] [address] [address] [address] Benito To Basophils/100 WBC (Bld) 0.4 % Normal 0.2-2.0 [facility] Comment on above: Performed By: #### T NS, PRBC #### [facility] [address] [address] [address] Benito To EO # 0.0 103/ul Normal 0.0-0.7 [facility] Comment on above: Performed By: #### T NS, PRBC #### [facility] [address] [address] [address] Benito To Eosinophils/100 WBC (Bld) 0.4 % Critically low 0.9-7.0 [facility] Comment on above: Performed By: #### T NS, PRBC #### [facility] [address] [address] [address] Benito To Erythrocyte distribution width (RBC) [Ratio] 26.9 % Critically high 11.0-15.0 [facility] Comment on above: Performed By: #### T NS, PRBC #### [facility] [address] [address] [address] Benito To Hematocrit (Bld) [Volume fraction] 22.5 % Critically low 42.0-54.0 [facility] Comment on above: Performed By: #### T NS, PRBC #### [facility] [address] [place] [address] Dr. Benito To Hemoglobin (Bld) [Mass/Vol] 7.0 g/dL Critically low 14.0-18.0 [facility] Comment on above: Performed By: #### T NS, PRBC #### [facility] [address] [place] [address] Dr. Benito To IG # 0.16 10e3/ul Critically high 0.00-0.03 [facility] Comment on above: Performed By: #### T NS, PRBC #### [facility] [address] [place] [address] Dr. Benito To IG % 7.0 % Critically high 0.0-0.5 [facility] Comment on above: Performed By: #### T NS, PRBC #### [facility] [address] [place] [address] Dr. Benito To LYMPH # 0.7 103/ul Critically low 1.2-3.8 [facility] Comment on above: Performed By: #### T NS, PRBC #### [facility] [address] [place] [address] Dr. Benito To Lymphocytes/100 WBC (Bld) 28.6 % Normal 20.5-60.0 [facility] Comment on above: Performed By: #### T NS, PRBC #### [facility] [address] [place] [address] Dr. Benito To MANUAL DIFF REQ NO Normal [facility] Comment on above: Performed By: #### T NS, PRBC #### [facility] [address] [place] [address] Dr. Benito To MCH (RBC) [Entitic mass] 32.6 pg Normal 25.9-34.0 [facility] Comment on above: Performed By: #### T NS, PRBC #### [facility] [address] [place] [address] Dr. Benito To MCHC (RBC) [Mass/Vol] 31.1 g/dL Normal 29.9-35.2 [facility] Comment on above: Performed By: #### T NS, PRBC #### [facility] [address] [place] [address] Dr. Benito To MCV (RBC) [Entitic vol] 104.7 fL Critically high 80.0-94.0 [facility] Comment on above: Performed By: #### T NS, PRBC #### [facility] [address] [place] [address] Dr. Benito To MONO # 0.4 103/ul Normal 0.3-0.8 [facility] Comment on above: Performed By: #### T NS, PRBC #### [facility] [address] [place] [address] Dr. Benito To Monocytes/100 WBC (Bld) 19.4 % Critically high 1.7-12.0 [facility] Comment on above: Performed By: #### T NS, PRBC #### [facility] [address] [place] [address] Dr. Benito To NEUT # 1.0 103/ul Critically low 1.4-6.5 [facility] Comment on above: Performed By: #### T NS, PRBC #### [facility] [address] [place] [address] Dr. Benito To Neutrophils/100 WBC (Bld) 44.2 % Normal 43.0-75.0 [facility] Comment on above: Performed By: #### T NS, PRBC #### [facility] [address] [place] [address] Dr. Benito To Platelet mean volume (Bld) [Entitic vol] 14.6 fL Critically high 9.5-13.5 [facility] Comment on above: Performed By: #### T NS, PRBC #### [facility] [address] [place] [address] Dr. Benito To PLT 93 103/ul Critically low 150-450 [facility] Comment on above: Performed By: #### T NS, PRBC #### [facility] [address] [address] [address] Benito To RBC 2.15 106/ul Critically low 4.70-6.10 [facility] Comment on above: Performed By: #### T NS, PRBC #### [facility] [address] [place], [place] [address] Dr. Benito To WBC 2.3 103/ul Critically low 4.0-11.0 [facility] Comment on above: Performed By: #### T NS, PRBC #### [facility] [id number] Benito To Family Medicine Office/Clini c Noteon 12-03-2022 Family Medicine Office/Clinic Note Chief Complaint meds check possible labs HPI Staff Here for meds check questions/concerns: thinks he's getting low on blood will most likely needs labs History of Present Illness CHF WITH ASCVD, DEVEASED EF, FEELING TIRED, NO PND OR ORTHOPNEA AND SWELLING IS BETTER. 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 Review of Systems PHQ Score Initial Depression Screen Score: 0 Constitutional: no weak and fatigued Skin: no Jaundice, no rash easy BRUISABILITY ENMT: no ear pain, no sore throat, no congestion, no hoarseness Respiratory: SOB, JANG Cardiovascular: EDEMA Gastrointestinal: no nausea, no vomiting, no diarrhea, no GI bleeding POOR APPETITE Genitourinary: no dysuria, no hematuria, no discharge, no pain Musculoskeletal: no back pain, no trauma Neurologic: no headache, DIZZY AND LIGHTHEADED, SLEEPING WELL Additional ROS info: Except as noted in the above Review of Systems and in the History of Present Illness all other systems have been reviewed and are negative or noncontributory. Physical Exam Vitals & Measurements HR: 60(Peripheral) RR: 24 BP: 124/78 SpO2: 97% HT: 67 in HT: 170.2 cm WT: 93.5 kg WT: 205.7 lb BMI: 32.28 General: TIRED APPEARING DYSPNEA AT REST Skin: warm, dry Head: no trauma, normocephalic Neck: Trachea midline, no adenopathy, no tenderness Eye: normal conjunctiva, sclera clear ENMT: TM's clear, oral mucosa moist, no pharyngeal erythema or exudate Cardiovascular: IRRIEGUALR IRREGULAR RHYTHM Respiratory: Lungs CTA, respirations non labored Chest wall: no deformity. Gastrointestinal: soft, non distended, no tenderness, no guarding. Back: DIFFUSE JOINT PAIN Extremities: EDEMA Neurological: oriented x 4, LOC appropriate for age, CN II-XII intact, motor strength equal & normal bilaterally, sensation equal & normal bilaterally, speech normal . Assessment/Plan CHECK CBC AND CHEM 8 TODAYJ. ED ON DX PROCESSES. WILL TRY TRANSFUSIONS A PALLIATIVE TREATMENT FOR HIS SYMPTOMS, HE UNDERSTANDS THE RISKS AND BENEFITS OF THE TREATMENT. CHECK CHEM 8 TODAY FOR THE METOLAZONE, EXPLAINED. 1. Acute combined systolic and diastolic heart failure (I50.41: Acute combined systolic (congestive) and diastolic (congestive) heart failure) Ordered: Basic Metabolic Panel 2. Myelodysplastic syndrome (D46.9: Myelodysplastic syndrome, unspecified) Ordered: Basic Metabolic Panel CBC w/ Auto Diff 3. Anemia (D64.9: Anemia, unspecified) Ordered: Basic Metabolic Panel CBC w/ Auto Diff 4. Renal failure (N19: Unspecified kidney failure) Ordered: Basic Metabolic Panel CBC w/ Auto Diff Orders: Body Mass Index (BMI) documented 3008F Current tobacco non-user 1036F Depression Screening Negative 3352F Influenza immunization administered or previously received 4274F Most recent diastolic blood pressure <80 mm Hg 3078F Patient screen for fall risk: no falls in last year or 1 fall with no injury in last year 1101F Systolic BP <130 mm Hg (Most Recent) 3074F Follow-up No qualifying data available Problem List/Past Medical History Ongoing AP (angina pectoris) BPH without obstruction/lower urinary tract symptoms Diabetes Follicular impetigo Hyperlipidemia Hypertension Kidney cysts Microscopic hematuria Penile boil Renal failure Urge incontinence Urinary urgency Historical No qualifying data Procedure/Surgical History cysto/ud, bilateral RG Pyelogram (10/23/2011), Cataract care, Placement of stent in cardiac conduit. Medications aspirin 81 mg Oral EC Tab, 81 mg= 1 tab(s), Oral, BID atorvastatin 20 mg Tab, Oral, Daily bumetanide 2 mg Tab, 1 mg= 0.5 tab(s), Oral, BID colchicine 0.6 mg Tab, 0.6 mg= 1 tab(s), Oral, TID Farxiga 10 mg oral tablet, 10 mg= 1 tab(s), Oral, Daily glipiZIDE 5 mg ER Tab, 5 mg= 1 tab(s), Oral, BID lisinopril 10 mg Tab, 10 mg= 1 tab(s), Oral, BID metolazone 2.5 mg Tab, 2.5 mg= 1 tab(s), Oral, Daily metoprolol 25 mg ER Tab, 25 mg= 1 tab(s), Oral, Daily omeprazole 40 mg Cap-DR, 40 mg= 1 cap(s), Oral, Daily Potassium Chloride (Nya-Ffbj-Qrf M20) 20 mEq oral tablet, extended release, 20 mEq= 1 tab(s), Oral, BID spironolactone 25 mg Tab, 25 mg= 1 tab(s), Oral, Daily terazosin 5 mg Cap, 5 mg= 1 cap(s), Oral, Daily Vitamin D3 1000 intl units oral tablet, 1000 International_Unit= 1 tab(s), Oral, Daily Allergies metoprolol (hives) Social History Alcohol - Low Risk, 09/02/2019 Tobacco Former smoker, quit more than 30 days ago Tobacco Use:. Cigarettes, 12/03/2022 Former smoker, quit more than 30 days ago Tobacco Use:., 09/19/2020 Family History Family history is negative Immunizations Vaccine Date Status influenza virus vaccine, inactivated 05/20/2022 Recorded SARS-CoV-2 (COVID-19) mRNA-1273 vaccine 06/29/2021 Recorded influenza virus vaccine, inactivated 05/02/2021 Recorded SARS-CoV-2 (COVID-19) mRNA-1273 vaccine 09/25/2020 Recorded SARS-CoV-2 (COVID-19) (more content not included)... Normal [facility] Comment on above: Result Comment: Elec tronically Signed By: RYANNE SEN, FLASH Holden\.br\Date and Time Signed: 12/03/22 13:58 EDT PROF CHEM 8 (BAS METB)on Anion gap [Moles/Vol] 8.3 mmol/L Normal [facility] Comment on above: Performed By: #### T NS, PRBC #### [facility] [address] [place] [address] Dr. Benito To Calcium [Mass/Vol] 9.2 mg/dL Normal 8.5-10.1 [facility] Comment on above: Performed By: #### T NS, PRBC #### [facility] [address] [place] [address] Dr. Benito To Chloride [Moles/Vol] 102 mmol/L Normal 98-107 [facility] Comment on above: Performed By: #### T NS, PRBC #### [facility] [address] [place] [address] Dr. Benito To CO2 [Moles/Vol] 31.5 mmol/L Normal 21.0-32.0 [facility] Comment on above: Performed By: #### T NS, PRBC #### [facility] [address] [place] [address] Dr. Benito To Creatinine [Mass/Vol] 1.96 mg/dL Critically high 0.70-1.30 [facility] Comment on above: Performed By: #### T NS, PRBC #### [facility] [address] [place] [address] Dr. Benito To EGFR-AF CAMEROONIAN 40 mL/min/1.73m2 Critically low >=60 [facility] Comment on above: Performed By: #### T NS, PRBC #### [facility] [address] [place] [address] Dr. Benito To EGFR-NON AF CAMEROONIAN 33 mL/min/1.73m2 Critically low >=60 [facility] Comment on above: Performed By: #### T NS, PRBC #### [facility] [address] [place] [address] Dr. Benito To Glucose [Mass/Vol] 235 mg/dL Critically high 74-106 [facility] Comment on above: Performed By: #### T NS, PRBC #### [facility] [address] [place] [address] Dr. Benito To Potassium [Moles/Vol] 3.8 mmol/L Normal 3.5-5.1 [facility] Comment on above: Performed By: #### T NS, PRBC #### [facility] [address] [address] [address] Benito To Sodium [Moles/Vol] 138 mmol/L Normal 136-145 [facility] Comment on above: Performed By: #### T NS, PRBC #### [facility] [address] [address] [address] Benito To Urea nitrogen [Mass/Vol] 45.0 mg/dL Critically high 7.0-18.0 [facility] Comment on above: Performed By: #### T NS, PRBC #### [facility] [address] [address] [address] Benito To Urea nitrogen/Creatinine [Mass ratio] 23.0 mg/mg Normal [facility] Comment on above: Performed By: #### T NS, PRBC #### [facility] [address] [address] [address] Benito To TYPE AND SCREENon 12-03-2022 TYPE AND SCREEN Negative Normal [facility] Comment on above: Performed By: #### P RBC, TNS #### [facility] [address] [place] [address] Dr. Benito To Ambulatory Visit Summaryon 0 11-20-2022 Ambulatory Visit Summary SANDIP BROUSSARD :1940 Visit Date:11/20/2022 Ambulatory Visit Instructions Your Diagnosis Renal failure Acute combined systolic (congestive) and diastolic (congestive) heart failure Hypertension MDS (myelodysplastic syndrome) Mitral regurgitation Your Care Team Attending Physician - FLASH PEARL MD Primary Care Physician - FLASH PEARL MD This Is Your Medications List aspirin (aspirin 81 mg Oral EC Tab) atorvastatin (atorvastatin 20 mg Tab) bumetanide (bumetanide 2 mg Tab) cholecalciferol (Vitamin D3 1000 intl units oral tablet) colchicine (colchicine 0.6 mg Tab) dapagliflozin (Farxiga 10 mg oral tablet) glipiZIDE (glipiZIDE 5 mg ER Tab) lisinopril (lisinopril 10 mg Tab) metolazone (metolazone 2.5 mg Tab) metoprolol (metoprolol 25 mg ER Tab) omeprazole (omeprazole 40 mg Cap-DR) potassium chloride (Potassium Chloride (Jvk-Mwns-Oot M20) 20 mEq oral tablet, extended release) spironolactone (spironolactone 25 mg Tab) terazosin (terazosin 5 mg Cap) Procedures Performed cysto/ud, bilateral RG Pyelogram (10/23/2011), Cataract care, Placement of stent in cardiac conduit. Discharge Vitals Heart Rate (Peripheral) 64 Respiratory Rate 20 Blood Pressure 102/56 Height 170.18 cm Height 67 in Weight 94.8 kg Weight 208.56 lb BMI 32.73 What to do next Scheduled Follow-Up Appointments Friday. 2022 1:20 PM EDT With: FLASH PEARL MD Where: [facility] Ambulatory Visit Summary SANDIP BROUSSARD :1940 Visit Date:11/20/2022 Ambulatory Visit Instructions Your Diagnosis Renal failure Acute combined systolic (congestive) and diastolic (congestive) heart failure Hypertension MDS (myelodysplastic syndrome) Mitral regurgitation Your Care Team Attending Physician - FLASH PEARL MD Primary Care Physician - FLASH PEARL MD This Is Your Medications List aspirin (aspirin 81 mg Oral EC Tab) atorvastatin (atorvastatin 20 mg Tab) bumetanide (bumetanide 2 mg Tab) cholecalciferol (Vitamin D3 1000 intl units oral tablet) colchicine (colchicine 0.6 mg Tab) dapagliflozin (Farxiga 10 mg oral tablet) glipiZIDE (glipiZIDE 5 mg ER Tab) lisinopril (lisinopril 10 mg Tab) metolazone (metolazone 2.5 mg Tab) metoprolol (metoprolol 25 mg ER Tab) omeprazole (omeprazole 40 mg Cap-DR) potassium chloride (Potassium Chloride (Oaa-Nsjs-Ulh M20) 20 mEq oral tablet, extended release) spironolactone (spironolactone 25 mg Tab) terazosin (terazosin 5 mg Cap) Procedures Performed cysto/ud, bilateral RG Pyelogram (10/23/2011), Cataract care, Placement of stent in cardiac conduit. Discharge Vitals Heart Rate (Peripheral) 64 Respiratory Rate 20 Blood Pressure 102/56 Height 170.18 cm Height 67 in Weight 94.8 kg Weight 208.56 lb BMI 32.73 What to do next Scheduled Follow-Up Appointments Friday 1:20 PM EDT With: RYANNE SEN, FLASH Holden Where: [facility] Normal [facility] CBC W Auto Differential pane l (Bld)on 11-20-2022 Anisocytosis Ql (Bld) Present Normal [facility] Comment on above: Order Comment: Speci men Type: BLOOD SPECIMENOrdering Facility: [facility] Address: [address] [address] Performed By: #### 5 7021-8 ####[facility] LABCLIA [id number] [address] LABCLIA [id number] [place] [address] [place] Basophils (Bld) [#/Vol] 0.06 10*3/uL Normal <0.11 [facility] Comment on above: Order Comment: Speci men Type: BLOOD SPECIMENOrdering Facility: [facility] Address: [address] [place] [address] Performed By: #### 5 7021-8 ####[facility] LABCLIA [id number] [address] LABCLIA [id number] [place] [address] [place] Basophils/100 WBC (Bld) 1.0 % Normal [facility] Comment on above: Order Comment: Speci men Type: BLOOD SPECIMENOrdering Facility: [facility] Address: [address] [place] [address] Performed By: #### 5 7021-8 ####[facility] LABCLIA [id number] [address] LABCLIA [id number] [place] [address] [place] Differential cell count method Nom (Bld) Manual Normal [facility] Comment on above: Order Comment: Speci men Type: BLOOD SPECIMENOrdering Facility: [facility] Address: [address] [place] [address] Performed By: #### 5 7021-8 ####[facility] LABCLIA [id number] [address] LABCLIA [id number] [place] [address] [place] DYSPLASTIC PMNS Occasional Normal [facility] Comment on above: Order Comment: Speci men Type: BLOOD SPECIMENOrdering Facility: [facility] Address: [address] [place] [address] Performed By: #### 5 7021-8 ####[facility] LABCLIA [id number] [address] LABCLIA [id number] [place] [address] [place] Eosinophils (Bld) [#/Vol] 0.00 10*3/uL Normal <0.46 [facility] Comment on above: Order Comment: Speci men Type: BLOOD SPECIMENOrdering Facility: [facility] Address: [address] [place] [address] Performed By: #### 5 7021-8 ####[facility] LABCLIA [id number] [address] LABCLIA [id number] [place] [address] [place] Eosinophils/100 WBC (Bld) 0.0 % Normal [facility] Comment on above: Order Comment: Speci men Type: BLOOD SPECIMENOrdering Facility: [facility] Address: [address] [place] [address] Performed By: #### 5 7021-8 ####[facility] LABCLIA [id number] [address] LABCLIA [id number] [place] [address] [place] Erythrocyte distribution width (RBC) [Ratio] 25.0 % High 11.5-15.0 [facility] Comment on above: Order Comment: Speci men Type: BLOOD SPECIMENOrdering Facility: [facility] Address: [address] [place] [address] Performed By: #### 5 7021-8 ####[facility] LABCLIA [id number] [address] LABCLIA [id number] [place] [address] [place] Hematocrit (Bld) [Volume fraction] 25.0 % Low 39.0-51.0 [facility] Comment on above: Order Comment: Speci men Type: BLOOD SPECIMENOrdering Facility: [facility] Address: [address] [place] [address] Performed By: #### 5 7021-8 ####[facility] LABCLIA [id number] [address] LABCLIA [id number] [place] [address] [place] Hemoglobin (Bld) [Mass/Vol] 7.9 g/dL Low 13.0-17.0 [facility] Comment on above: Order Comment: Speci men Type: BLOOD SPECIMENOrdering Facility: [facility] Address: [address] [place] [address] Performed By: #### 5 7021-8 ####[facility] LABCLIA [id number] [address] LABCLIA [id number] [place] [address] [place] Lymphocytes (Bld) [#/Vol] 1.60 10*3/uL Normal 1.00-4.00 [facility] Comment on above: Order Comment: Speci men Type: BLOOD SPECIMENOrdering Facility: [facility] Address: [address] [place] [address] Performed By: #### 5 7021-8 ####[facility] LABCLIA [id number] [address] LABCLIA [id number] [place] [address] [place] Lymphocytes/100 WBC (Bld) 25.0 % Normal [facility] Comment on above: Order Comment: Speci men Type: BLOOD SPECIMENOrdering Facility: [facility] Address: [address] [place] [address] Performed By: #### 5 7021-8 ####[facility] LABCLIA [id number] [address] LABCLIA [id number] [place] [address] [place] MCH (RBC) [Entitic mass] 32.5 pg Normal 26.0-34.0 [facility] Comment on above: Order Comment: Speci men Type: BLOOD SPECIMENOrdering Facility: [facility] Address: [address] [place] [address] Performed By: #### 5 7021-8 ####[facility] LABCLIA [id number] [address] LABCLIA [id number] [place] [address] [place] MCHC (RBC) [Mass/Vol] 31.6 g/dL Normal 30.5-36.0 [facility] Comment on above: Order Comment: Speci men Type: BLOOD SPECIMENOrdering Facility: [facility] Address: [address] [place] [address] Performed By: #### 5 7021-8 ####[facility] LABCLIA [id number] [address] LABCLIA [id number] [place] [address] [place] MCV (RBC) [Entitic vol] 102.9 fL High 80.0-100.0 [facility] Comment on above: Order Comment: Speci men Type: BLOOD SPECIMENOrdering Facility: [facility] Address: [address] [place] [address] Performed By: #### 5 7021-8 ####[facility] LABCLIA [id number] [address] LABCLIA [id number] [place] [address] [place] Metamyelocytes/100 WBC (Bld) 1.0 % Normal [facility] Comment on above: Order Comment: Speci men Type: BLOOD SPECIMENOrdering Facility: [facility] Address: [address] [place] [address] Performed By: #### 5 7021-8 ####[facility] LABCLIA [id number] [address] LABCLIA [id number] [place] [address] [place] Monocytes (Bld) [#/Vol] 1.15 10*3/uL High <0.87 [facility] Comment on above: Order Comment: Speci men Type: BLOOD SPECIMENOrdering Facility: [facility] Address: [address] [place], [place] [address] Performed By: #### 5 7021-8 ####[facility] LABCLIA [id number] [address] LABCLIA [id number] [place] [address] [place] Monocytes/100 WBC (Bld) 18.0 % Normal [facility] Comment on above: Order Comment: Speci men Type: BLOOD SPECIMENOrdering Facility: [facility] Address: [address] Performed By: #### 5 7021-8 ####[facility] LABCLIA [id number] [address] LABCLIA [id number] [place] [address] [place] MYELO% 14.0 % Normal [facility] Comment on above: Order Comment: Speci men Type: BLOOD SPECIMENOrdering Facility: [facility] Address: [address] Performed By: #### 5 7021-8 ####[facility] LABCLIA [id number] [address] LABCLIA [id number] [place] [address] [place] Neutrophils (Bld) [#/Vol] 2.63 10*3/uL Normal 1.45-7.50 [facility] Comment on above: Order Comment: Speci men Type: BLOOD SPECIMENOrdering Facility: [facility] Address: [address] Performed By: #### 5 7021-8 ####[facility] LABCLIA [id number] [address] LABCLIA [id number] [place] [address] [place] Neutrophils/100 WBC (Bld) 41.0 % Normal [facility] Comment on above: Order Comment: Speci men Type: BLOOD SPECIMENOrdering Facility: [facility] Address: [address] [place] [address] Performed By: #### 5 7021-8 ####[facility] LABCLIA [id number] [address] LABCLIA [id number] [place] [address] [place] Nucleated RBC (Bld) [#/Vol] 10*3/uL Normal <0.01 [facility] Comment on above: Order Comment: Speci men Type: BLOOD SPECIMENOrdering Facility: [facility] Address: [address] [place] [address] Performed By: #### 5 7021-8 ####[facility] LABCLIA [id number] [address] LABCLIA [id number] [place] [address] [place] Nucleated RBC/100 WBC (Bld) [Ratio] 0.0 /100 WBC Normal [facility] Comment on above: Order Comment: Speci men Type: BLOOD SPECIMENOrdering Facility: [facility] Address: [address] [place] [address] Performed By: #### 5 7021-8 ####[facility] LABCLIA [id number] [address] LABCLIA [id number] [place] [address] [place] Ovalocytes LM Ql (Bld) Few Normal [facility] Comment on above: Order Comment: Speci men Type: BLOOD SPECIMENOrdering Facility: [facility] Address: [address] [place], [place] [address] Performed By: #### 5 7021-8 ####[facility] LABCLIA [id number] [address] LABCLIA [id number] [place] [address] [place] Platelet mean volume (Bld) [Entitic vol] 15.0 fL High 9.0-12.7 [facility] Comment on above: Order Comment: Speci men Type: BLOOD SPECIMENOrdering Facility: [facility] Address: [address] [place], [place] [address] Performed By: #### 5 7021-8 ####[facility] LABCLIA [id number] [address] LABCLIA [id number] [place] [address] [place] Platelets (Bld) [#/Vol] 121 10*3/uL Low 150-400 [facility] Comment on above: Order Comment: Speci men Type: BLOOD SPECIMENOrdering Facility: [facility] Address: [address] Result Comment: Resu lts checked and verified.No clot detected. Performed By: #### 5 7021-8 ####[facility] LABCLIA [id number] [address] LABCLIA [id number] [place] [address] [place] Platelets Estimate (Bld) [#/Vol] Decreased Normal [facility] Comment on above: Order Comment: Speci men Type: BLOOD SPECIMENOrdering Facility: [facility] Address: [address] [place] [address] Performed By: #### 5 7021-8 ####[facility] LABCLIA [id number] [address] LABCLIA [id number] [place] [address] [place] Polychromasia LM Ql (Bld) Slight Normal [facility] Comment on above: Order Comment: Speci men Type: BLOOD SPECIMENOrdering Facility: [facility] Address: [address] [address] [address] Performed By: #### 5 7021-8 ####[facility] LABCLIA [id number] [address] LABCLIA [id number] [place] [address] [place] RBC (Bld) [#/Vol] 2.43 10*6/uL Low 4.20-6.00 [facility] Comment on above: Order Comment: Speci men Type: BLOOD SPECIMENOrdering Facility: [facility] Address: [address] [place] [address] Performed By: #### 5 7021-8 ####[facility] LABCLIA [id number] [address] LABCLIA [id number] [place] [address] [place] RED CELL MORPH Reviewed: see result s of individual morphologies Normal [facility] Comment on above: Order Comment: Speci men Type: BLOOD SPECIMENOrdering Facility: [facility] Address: [address] [place] [address] Performed By: #### 5 7021-8 ####[facility] LABCLIA [id number] [address] LABCLIA [id number] [place] [address] [place] WBC (Bld) [#/Vol] 6.41 10*3/uL Normal 3.70-11.00 [facility] Comment on above: Order Comment: Speci men Type: BLOOD SPECIMENOrdering Facility: [facility] Address: [address] [place] [address] Result Comment: Resu lts checked and verified.No clot detected. Performed By: #### 5 7021-8 ####[facility] LABCLIA [id number] [address] LABCLIA [id number] [place] [address] [place] WBC Left Shift Ql (Bld) Present Normal [facility] Comment on above: Order Comment: Speci men Type: BLOOD SPECIMENOrdering Facility: [facility] Address: [address] [place] [address] Performed By: #### 5 7021-8 ####[facility] LABCLIA [id number] [place], [place] [address] LABCLIA [id number] [place] [facility] [place] [address] [place] CNOVSPon 11-20-2022 CNOVSP Normal [facility] CNPNon 11-20-2022 CNPN Normal [facility] Comprehensive metabolic 2000 panelon 11-20-2022 Albumin [Mass/Vol] 3.6 g/dL Low 3.9-4.9 [facility] Comment on above: Order Comment: Speci men Type: BLOOD SPECIMENOrdering Facility: [facility] Address: [address] [address] [address] Performed By: #### 2 4323-8 ####[facility] LABCLIA [id number] [place] [address] ALP [Catalytic activity/Vol] 184 U/L High 38-113 [facility] Comment on above: Order Comment: Speci men Type: BLOOD SPECIMENOrdering Facility: [facility] Address: [address] [address] [address] Performed By: #### 2 4323-8 ####[facility] LABCLIA [id number] [place] [address] ALT [Catalytic activity/Vol] 76 U/L High 10-54 [facility] Comment on above: Order Comment: Speci men Type: BLOOD SPECIMENOrdering Facility: [facility] Address: [address] [address] [address] Performed By: #### 2 4323-8 ####[facility] LABIA [id number] [place] [address] Anion gap [Moles/Vol] 10 mmol/L Normal 9-18 [facility] Comment on above: Order Comment: Speci men Type: BLOOD SPECIMENOrdering Facility: [facility] Address: [address] [address] Performed By: #### 2 4323-8 ####[facility] LABCLIA [id number] [place] [address] AST [Catalytic activity/Vol] 46 U/L High 14-40 [facility] Comment on above: Order Comment: Speci men Type: BLOOD SPECIMENOrdering Facility: [facility] Address: [address] [place] [address] Performed By: #### 2 4323-8 ####[facility] LABCLIA [id number] [place] [address] Bilirubin [Mass/Vol] 0.7 mg/dL Normal 0.2-1.3 [facility] Comment on above: Order Comment: Speci men Type: BLOOD SPECIMENOrdering Facility: [facility] Address: [address] [place] [address] Performed By: #### 2 4323-8 ####[facility] LABCLIA [id number] [place] [address] Calcium [Mass/Vol] 9.4 mg/dL Normal 8.5-10.2 [facility] Comment on above: Order Comment: Speci men Type: BLOOD SPECIMENOrdering Facility: [facility] Address: [address] [place] [address] Performed By: #### 2 4323-8 ####[facility] LABCLIA [id number] [place] [address] Chloride [Moles/Vol] 91 mmol/L Low 97-105 [facility] Comment on above: Order Comment: Speci men Type: BLOOD SPECIMENOrdering Facility: [facility] Address: [address] [place] [address] Performed By: #### 2 4323-8 ####[facility] LABCLIA [id number] [place] [address] CO2 [Moles/Vol] 37 mmol/L High 22-30 [facility] Comment on above: Order Comment: Speci men Type: BLOOD SPECIMENOrdering Facility: [facility] Address: [address] [address] Performed By: #### 2 4323-8 ####[facility] LABCLIA [id number] [place] [address] Creatinine [Mass/Vol] 1.64 mg/dL High 0.73-1.22 [facility] Comment on above: Order Comment: Speci men Type: BLOOD SPECIMENOrdering Facility: [facility] Address: [address] [address] Performed By: #### 2 4323-8 ####[facility] LABCLIA [id number] [place] [address] ESTIMATED GLOMERULAR FILTRATION RATE 41 mL/min/1.73m??? Low >=60 [facility] Comment on above: Order Comment: Speci men Type: BLOOD SPECIMENOrdering Facility: [facility] Address: [address] [address] Result Comment: Faye mated Glomerular Filtration Rate (eGFR) is calculated using the 2020 CKD-EPI creatinine equation. This equation utilizes serum creatinine, sex, and age as parameters. The creatinine assay has traceable calibration to isotope dilution-mass spectrometry. Refer to KDIGO guidelines for clinical interpretation. In patients with unstable renal function, e.g. those with acute kidney injury, the eGFR may not accurately reflect actual GFR. Performed By: #### 2 4323-8 ####[facility] LABCLIA [id number] [place] [address] Glucose [Mass/Vol] 168 mg/dL High 74-99 [facility] Comment on above: Order Comment: Speci men Type: BLOOD SPECIMENOrdering Facility: [facility] Address: [address] [place] [address] Result Comment: The [place] [employer] (ADA) provides guidance for cutoff values for fasting glucose and random glucose. The ADA defines fasting as no caloric intake for at least 8 hours. Fasting plasma glucose results between 100 to 125 mg/dL indicate increased risk for diabetes (prediabetes).Fasting plasma glucose results greater than or equal to 126 mg/dL meet the criteria for diagnosis of diabetes. In the absence of unequivocal hyperglycemia, results should be confirmed by repeat testing. In a patient with classic symptoms of hyperglycemia or hyperglycemic crisis, random plasma glucose results greater than or equal to 200 mg/dL meet the criteria for diagnosis of diabetes.Reference: Standards of Medical Care in Diabetes 2016, [employer] [place] [employer]. Diabetes Care. 2016.39(Suppl 1). Performed By: #### 2 4323-8 ####[facility] LABCLIA [id number] [place] [address] Potassium [Moles/Vol] 3.8 mmol/L Normal 3.7-5.1 [facility] Comment on above: Order Comment: Speci men Type: BLOOD SPECIMENOrdering Facility: [facility] Address: [address] [place] [address] Performed By: #### 2 4323-8 ####[facility] LABIA [id number] [place] [address] Protein [Mass/Vol] 7.5 g/dL Normal 6.3-8.0 [facility] Comment on above: Order Comment: Speci men Type: BLOOD SPECIMENOrdering Facility: [facility] Address: [address] [place] [address] Performed By: #### 2 4323-8 ####[facility] LABCLIA [id number] [place] [address] Sodium [Moles/Vol] 138 mmol/L Normal 136-144 [facility] Comment on above: Order Comment: Speci men Type: BLOOD SPECIMENOrdering Facility: [facility] Address: [address] [place] [address] Performed By: #### 2 4323-8 ####[facility] LABCLIA [id number] [place] [address] Urea nitrogen [Mass/Vol] 50 mg/dL High 9-24 [facility] Comment on above: Order Comment: Speci men Type: BLOOD SPECIMENOrdering Facility: [facility] Address: [place] [address] Performed By: #### 2 4323-8 ####[facility] LABCLIA [id number] [place] [address] Echocardiographyon Echocardiography [id number] 4052 [id number]#[id number]: 127 Normal [facility] Family Medicine Office/Clini c Noteon 11-20-2022 Family Medicine Office/Clinic Note Chief Complaint hospital follow up HPI Staff hospital follow up signed on with hospice new meds added to med list Review of Systems PHQ Score Initial Depression Screen Score: 0 Physical Exam Vitals & Measurements HR: 64(Peripheral) RR: 20 BP: 102/56 SpO2: 90% HT: 67 in HT: 170.18 cm WT: 94.8 kg WT: 208.56 lb BMI: 32.73 Assessment/Plan 1. Renal failure (N19: Unspecified kidney failure) Ordered: Basic Metabolic Panel 2. Acute combined systolic (congestive) and diastolic (congestive) heart failure (I50.41: Acute combined systolic (congestive) and diastolic (congestive) heart failure) 3. Hypertension (I10: Essential (primary) hypertension) 4. MDS (myelodysplastic syndrome) (D46.9: Myelodysplastic syndrome, unspecified) 5. Mitral regurgitation (I34.0: Nonrheumatic mitral (valve) insufficiency) Orders: Body Mass Index (BMI) documented 3008F Current tobacco non-user 1036F Depression Screening Negative 3352F Influenza immunization administered or previously received 4274F Most recent diastolic blood pressure <80 mm Hg 3078F Patient screen for fall risk: no falls in last year or 1 fall with no injury in last year 1101F Systolic BP <130 mm Hg (Most Recent) 3074F Follow-up No qualifying data available Problem List/Past Medical History Ongoing AP (angina pectoris) BPH without obstruction/lower urinary tract symptoms Diabetes Follicular impetigo Hyperlipidemia Hypertension Kidney cysts Microscopic hematuria Penile boil Renal failure Urge incontinence Urinary urgency Historical No qualifying data Procedure/Surgical History cysto/ud, bilateral RG Pyelogram (10/23/2011), Cataract care, Placement of stent in cardiac conduit. Medications aspirin 81 mg Oral EC Tab, 81 mg= 1 tab(s), Oral, BID atorvastatin 20 mg Tab, Oral, Daily bumetanide 2 mg Tab, 1 mg= 0.5 tab(s), Oral, BID colchicine 0.6 mg Tab, 0.6 mg= 1 tab(s), Oral, TID, Not taking Farxiga 10 mg oral tablet, 10 mg= 1 tab(s), Oral, Daily glipiZIDE 5 mg ER Tab, 5 mg= 1 tab(s), Oral, BID lisinopril 10 mg Tab, 10 mg= 1 tab(s), Oral, BID, Not taking metolazone 2.5 mg Tab, 2.5 mg= 1 tab(s), Oral, Daily metoprolol 25 mg ER Tab, 25 mg= 1 tab(s), Oral, Daily omeprazole 40 mg Cap-DR, 40 mg= 1 cap(s), Oral, Daily Potassium Chloride (Ege-Faxu-Jqx M20) 20 mEq oral tablet, extended release, 20 mEq= 1 tab(s), Oral, BID spironolactone 25 mg Tab, 25 mg= 1 tab(s), Oral, Daily terazosin 5 mg Cap, 5 mg= 1 cap(s), Oral, Daily Vitamin D3 1000 intl units oral tablet, 1000 International_Unit= 1 tab(s), Oral, Daily, Not taking Allergies metoprolol (hives) Social History Alcohol - Low Risk, 09/02/2019 Tobacco Former smoker, quit more than 30 days ago Tobacco Use:. Cigarettes, 11/20/2022 Former smoker, quit more than 30 days ago Tobacco Use:., 09/19/2020 Family History Family history is negative Immunizations Vaccine Date Status influenza virus vaccine, inactivated 05/20/2022 Recorded SARS-CoV-2 (COVID-19) mRNA-1273 vaccine 06/29/2021 Recorded influenza virus vaccine, inactivated 05/02/2021 Recorded SARS-CoV-2 (COVID-19) mRNA-1273 vaccine 09/25/2020 Recorded SARS-CoV-2 (COVID-19) mRNA-1273 vaccine 09/14/2020 Recorded SARS-CoV-2 (COVID-19) mRNA-1273 vaccine 08/28/2020 Recorded SARS-CoV-2 (COVID-19) mRNA-1273 vaccine 08/17/2020 Recorded influenza virus vaccine, inactivated 06/23/2019 Recorded influenza virus vaccine, inactivated 05/10/2019 Recorded influenza virus vaccine, inactivated 05/28/2018 Recorded influenza virus vaccine, inactivated 06/18/2015 Recorded pneumococcal 23-valent vaccine 05/08/2014 Recorded influenza virus vaccine, inactivated 05/08/2014 Recorded influenza virus vaccine, inactivated 05/23/2013 Recorded Normal [facility] Comment on above: Result Comment: Elec tronically Signed By: RYANNE SEN, FLASH Marrufo\Date and Time Signed: 11/20/22 14:24 EDT Family Medicine Office/Clinic Note Chief Complaint hospital follow up HPI Staff hospital follow up signed on with hospice new meds added to med list History of Present Illness myeloproliferative disorder IRON OVERLOAD CHF EF 40% MR WITH RVH AND PULMONARY HTN NIDDM HTN Review of Systems PHQ Score Initial Depression Screen Score: 0 Constitutional: no fever, no chills, no sweats, no weakness Skin: no Jaundice, no rash, no lesions, nopetechiae ENMT: no ear pain, no sore throat, no congestion, no hoarseness Respiratory: no shortness of breath, no cough, no orthopnea, no wheezing Cardiovascular: no chest pain, no palpitations, no edema Gastrointestinal: no nausea, no vomiting, no diarrhea, no GI bleeding Genitourinary: no dysuria, no hematuria, no discharge, no pain Musculoskeletal: no back pain, no trauma Neurologic: no headache, no dizziness, no numbness, no weakness Psychiatric: no sleeping problems, no irritability, no mood swings/depression. Heme/Lymph: no bleeding tendency, no bruising tendency, no petechiae, no swollen nodes Allergy/Immunologic: no seasonal allergies, no food allergies, no recurrent infections, no impaired immunity Additional ROS info: Except as noted in the above Review of Systems and in the History of Present Illness all other systems have been reviewed and are negative or noncontributory. Physical Exam Vitals & Measurements HR: 64(Peripheral) RR: 20 BP: 102/56 SpO2: 90% HT: 67 in HT: 170.18 cm WT: 94.8 kg WT: 208.56 lb BMI: 32.73 GeneraL TIRE TACHYPNEA TACHYCARDIC Skin: warm, dry Head: no trauma, normocephalic Neck: Trachea midline, no adenopathy, no tenderness Eye: normal conjunctiva, sclera clear ENMT: TM's clear, oral mucosa moist, no pharyngeal erythema or exudate Cardiovascular: IRRIGULAR IRREGULAR Respiratory: Lungs POOR MOVEMENT OF AIR Chest wall: no deformity. Gastrointestinal: soft, non distended, no tenderness, no guarding. Back: No tenderness, Normal ROM, Normal alignment. Extremities: no deformity, no trauma Neurological: oriented x 4, LOC appropriate for age, CN II-XII intact, motor strength equal & normal bilaterally, sensation equal & normal bilaterally, speech normal Psychiatric: cooperative, affect appropriate for age, normal judgement, normal psychiatric thoughts. Assessment/Plan SEVERE MR WITH PULMONARY HTN, AND FLUID OVERLOAD, BETTER SINCE STARTING METOLAZONE CHECK CHEM 8 TODAY. CHF IMPROVED WITH DIURESIS WILL CONTINUE. MYELODYSPLASTIC SYNDROME STILL ON WEEKLY TRANSFUSIONS AND IRON OVERLOAD WITH FERRITING 0F 6000, PT AWARE. HTN CONTROLLED. CURRENTLY IN HOSPICE AND DOING BETTER. 1. Renal failure (N19: Unspecified kidney failure) Ordered: Basic Metabolic Panel 2. Acute combined systolic (congestive) and diastolic (congestive) heart failure (I50.41: Acute combined systolic (congestive) and diastolic (congestive) heart failure) 3. Hypertension (I10: Essential (primary) hypertension) 4. MDS (myelodysplastic syndrome) (D46.9: Myelodysplastic syndrome, unspecified) 5. Mitral regurgitation (I34.0: Nonrheumatic mitral (valve) insufficiency) Orders: Body Mass Index (BMI) documented 3008F Current tobacco non-user 1036F Depression Screening Negative 3352F Influenza immunization administered or previously received 4274F Most recent diastolic blood pressure <80 mm Hg 3078F Patient screen for fall risk: no falls in last year or 1 fall with no injury in last year 1101F Systolic BP <130 mm Hg (Most Recent) 3074F Follow-up No qualifying data available Problem List/Past Medical History Ongoing AP (angina pectoris) BPH without obstruction/lower urinary tract symptoms Diabetes Follicular impetigo Hyperlipidemia Hypertension Kidney cysts Microscopic hematuria Penile boil Renal failure Urge incontinence Urinary urgency Historical No qualifying data Procedure/Surgical History cysto/ud, bilateral RG Pyelogram (10/23/2011), Cataract care, Placement of stent in cardiac conduit. Medications aspirin 81 mg Oral EC Tab, 81 mg= 1 tab(s), Oral, BID atorvastatin 20 mg Tab, Oral, Daily bumetanide 2 mg Tab, 1 mg= 0.5 tab(s), Oral, BID colchicine 0.6 mg Tab, 0.6 mg= 1 tab(s), Oral, TID, Not taking Farxiga 10 mg oral tablet, 10 mg= 1 tab(s), Oral, Daily glipiZIDE 5 mg ER Tab, 5 mg= 1 tab(s), Oral, BID lisinopril 10 mg Tab, 10 mg= 1 tab(s), Oral, BID, Not taking metolazone 2.5 mg Tab, 2.5 mg= 1 tab(s), Oral, Daily metoprolol 25 mg ER Tab, 25 mg= 1 tab(s), Oral, Daily omeprazole 40 mg Cap-DR, 40 mg= 1 cap(s), Oral, Daily Potassium Chloride (Bgt-Gzvr-Ety M20) 20 mEq oral tablet, extended release, 20 mEq= 1 tab(s), Oral, BID spironolactone 25 mg Tab, 25 mg= 1 tab(s), Oral, Daily terazosin 5 mg Cap, 5 mg= 1 cap(s), Oral, Daily Vitamin D3 1000 intl units oral tablet, 1000 International_Unit= 1 tab(s), Oral, Daily, Not taking Allergies metoprolol (hives) Social History Alcohol - Low Risk, 09/02/2019 Tobacco Former smoker, q (more content not included)... Normal [facility] Comment on above: Result Comment: Elec tronically Signed By: RYANNE SEN, FLASH Holden\.br\Date and Time Signed: 11/20/22 14:14 EDT RAD - MISCon 11-20-2022 RAD - MISC [id number]: 127 Normal [facility] CNPNon 11-19-2022 CNPN [facility] 11-17-2022 Natriuretic peptide B (Bld) [Mass/Vol] 6221.0 pg/mL Critically high <=1,800.0 [facility] Comment on above: Performed By: #### T NS, PRBC #### [facility] [address] [place] [address] Dr. Benito To CBC AUTO DIFFon 11-17-2022 BASO # 0.1 103/ul Normal 0.0-0.1 [facility] Comment on above: Performed By: #### T NS, PRBC #### [facility] [address] [place] [address] Dr. Benito To Basophils/100 WBC (Bld) 1.1 % Normal 0.2-2.0 [facility] Comment on above: Performed By: #### T NS, PRBC #### [facility] [address] [place] [address] Dr. Benito To EO # 0.0 103/ul Normal 0.0-0.7 [facility] Comment on above: Performed By: #### T NS, PRBC #### [facility] [address] [place] [address] Dr. Benito To Eosinophils/100 WBC (Bld) 0.0 % Critically low 0.9-7.0 [facility] Comment on above: Performed By: #### T NS, PRBC #### [facility] [address] [place] [address] Dr. Benito To Erythrocyte distribution width (RBC) [Ratio] 23.8 % Critically high 11.0-15.0 [facility] Comment on above: Performed By: #### T NS, PRBC #### [facility] [address] [place] [address] Dr. Benito To Hematocrit (Bld) [Volume fraction] 22.0 % Critically low 42.0-54.0 [facility] Comment on above: Performed By: #### T NS, PRBC #### [facility] [address] [place] [address] Dr. Benito To Hemoglobin (Bld) [Mass/Vol] 7.0 g/dL Critically low 14.0-18.0 [facility] Comment on above: Performed By: #### T NS, PRBC #### [facility] [address] [place] [address] Dr. Benito To IG # 1.95 10e3/ul Critically high 0.00-0.03 [facility] Comment on above: Performed By: #### T NS, PRBC #### [facility] [address] [address] [address] Benito To IG % 24.9 % Critically high 0.0-0.5 [facility] Comment on above: Performed By: #### T NS, PRBC #### [facility] [address] [address] [address] Benito To LYMPH # 1.1 103/ul Critically low 1.2-3.8 [facility] Comment on above: Performed By: #### T NS, PRBC #### [facility] [address] [place] [address] Dr. Benito To Lymphocytes/100 WBC (Bld) 13.8 % Critically low 20.5-60.0 [facility] Comment on above: Performed By: #### T NS, PRBC #### [facility] [address] [place] [address] Dr. Benito To MANUAL DIFF REQ NO Normal [facility] Comment on above: Performed By: #### T NS, PRBC #### [facility] [address] [place] [address] Dr. Benito To MCH (RBC) [Entitic mass] 32.0 pg Normal 25.9-34.0 [facility] Comment on above: Performed By: #### T NS, PRBC #### [facility] [address] [place] [address] Dr. Benito To MCHC (RBC) [Mass/Vol] 31.8 g/dL Normal 29.9-35.2 [facility] Comment on above: Performed By: #### T NS, PRBC #### [facility] [address] [address] [address] Benito To MCV (RBC) [Entitic vol] 100.5 fL Critically high 80.0-94.0 [facility] Comment on above: Performed By: #### T NS, PRBC #### [facility] [address] [place] [address] Dr. Benito To MONO # 1.1 103/ul Critically high 0.3-0.8 [facility] Comment on above: Performed By: #### T NS, PRBC #### [facility] [address] [place] [address] Dr. Benito To Monocytes/100 WBC (Bld) 14.4 % Critically high 1.7-12.0 [facility] Comment on above: Performed By: #### T NS, PRBC #### [facility] [address] [place] [address] Dr. Benito To NEUT # 3.6 103/ul Normal 1.4-6.5 [facility] Comment on above: Performed By: #### T NS, PRBC #### [facility] [address] [place] [address] Dr. Benito To Neutrophils/100 WBC (Bld) 45.8 % Normal 43.0-75.0 [facility] Comment on above: Performed By: #### T NS, PRBC #### [facility] [address] [place] [address] Dr. Benito To Platelet mean volume (Bld) [Entitic vol] 0.0 fL Critically low 9.5-13.5 [facility] Comment on above: Performed By: #### T NS, PRBC #### [facility] [address] [place] [address] Dr. Benito To PLT 92 103/ul Critically low 150-450 [facility] Comment on above: Performed By: #### T NS, PRBC #### [facility] [address] [place] [address] Dr. Benito To RBC 2.19 106/ul Critically low 4.70-6.10 [facility] Comment on above: Performed By: #### T NS, PRBC #### [facility] [address] [place] [address] Dr. Benito To WBC 7.8 103/ul Normal 4.0-11.0 [facility] Comment on above: Performed By: #### T NS, PRBC #### [facility] [address] [place] [address] Dr. Benito To PROF 14(COMP METB)on 023 Albumin [Mass/Vol] 2.5 g/dL Critically low 3.4-5.0 [facility] Comment on above: Performed By: #### H GBHCT #### [facility] [address] [address] [address] Benito To Albumin/Globulin [Mass ratio] 0.6 {ratio} Normal [facility] Comment on above: Performed By: #### H GBHCT #### [facility] [address] [address] [address] Benito To ALP [Catalytic activity/Vol] 148 U/L Critically high 46-116 [facility] Comment on above: Performed By: #### H GBHCT #### [facility] [address] [address] [address] Benito To ALT [Catalytic activity/Vol] 61 U/L Normal 16-63 [facility] Comment on above: Performed By: #### H GBHCT #### [facility] [address] [address] [address] Benito To Anion gap [Moles/Vol] 8.5 mmol/L Normal [facility] Comment on above: Performed By: #### H GBHCT #### [facility] [address] [address] [address] Benito To AST [Catalytic activity/Vol] 43 U/L Critically high 15-37 [facility] Comment on above: Performed By: #### H GBHCT #### [facility] [address] [address] [address] Benito To Bilirubin [Mass/Vol] 0.8 mg/dL Normal 0.2-1.0 [facility] Comment on above: Performed By: #### H GBHCT #### [facility] [address] [place] [address] Dr. Benito To Calcium [Mass/Vol] 8.4 mg/dL Critically low 8.5-10.1 [facility] Comment on above: Performed By: #### H GBHCT #### [facility] [address] [place] [address] Dr. Benito To Chloride [Moles/Vol] 101 mmol/L Normal 98-107 [facility] Comment on above: Performed By: #### H GBHCT #### [facility] [address] [address] [address] Benito To CO2 [Moles/Vol] 37.8 mmol/L Critically high 21.0-32.0 [facility] Comment on above: Performed By: #### H GBHCT #### [facility] [address] [address] [address] Benito To Creatinine [Mass/Vol] 1.77 mg/dL Critically high 0.70-1.30 [facility] Comment on above: Performed By: #### H GBHCT #### [facility] [address] [place] [address] Dr. Benito To EGFR-AF CAMEROONIAN 45 mL/min/1.73m2 Critically low >=60 [facility] Comment on above: Performed By: #### H GBHCT #### [facility] [address] [place] [address] Dr. Benito To EGFR-NON AF CAMEROONIAN 37 mL/min/1.73m2 Critically low >=60 [facility] Comment on above: Performed By: #### H GBHCT #### [facility] [address] [place] [address] Dr. Benito To Globulin (S) [Mass/Vol] 4.3 g/dL Normal [facility] Comment on above: Performed By: #### H GBHCT #### [facility] [address] [place] [address] Dr. Benito To Glucose [Mass/Vol] 107 mg/dL Critically high 74-106 [facility] Comment on above: Performed By: #### H GBHCT #### [facility] [address] [address] [address] Benito To Potassium [Moles/Vol] 3.3 mmol/L Critically low 3.5-5.1 [facility] Comment on above: Performed By: #### H GBHCT #### [facility] [address] [place] [address] Dr. Benito To Protein [Mass/Vol] 6.8 g/dL Normal 6.4-8.2 [facility] Comment on above: Performed By: #### H GBHCT #### [facility] [address] [place] [address] Dr. Benito To Sodium [Moles/Vol] 144 mmol/L Normal 136-145 [facility] Comment on above: Performed By: #### H GBHCT #### [facility] [address] [place] [address] Dr. Benito To Urea nitrogen [Mass/Vol] 40.0 mg/dL Critically high 7.0-18.0 [facility] Comment on above: Performed By: #### H GBHCT #### [facility] [address] [place] [address] Dr. Benito To Urea nitrogen/Creatinine [Mass ratio] 22.6 mg/mg Normal [facility] Comment on above: Performed By: #### H GBHCT #### [facility] [address] [place] [address] Dr. Benito To BNPon 11-16-2022 Natriuretic peptide B (Bld) [Mass/Vol] 07187.0 pg/mL Critically high <=1,800.0 [facility] Comment on above: Performed By: #### T NS, PRBC #### [facility] [address] [place] [address] Dr. Benito To CBC AUTO DIFFon 11-16-2022 BASO # 0.1 103/ul Normal 0.0-0.1 [facility] Comment on above: Performed By: #### T NS, PRBC #### [facility] [address] [place] [address] Dr. Benito To Basophils/100 WBC (Bld) 0.6 % Normal 0.2-2.0 [facility] Comment on above: Performed By: #### T NS, PRBC #### [facility] [address] [place] [address] Dr. Benito To EO # 0.6 103/ul Normal 0.0-0.7 [facility] Comment on above: Performed By: #### T NS, PRBC #### [facility] [address] [place] [address] Dr. Benito To Eosinophils/100 WBC (Bld) 5.1 % Normal 0.9-7.0 [facility] Comment on above: Performed By: #### T NS, PRBC #### [facility] [address] [place] [address] Dr. Benito To Erythrocyte distribution width (RBC) [Ratio] 23.6 % Critically high 11.0-15.0 [facility] Comment on above: Performed By: #### T NS, PRBC #### [facility] [address] [place] [address] Dr. Benito To Hematocrit (Bld) [Volume fraction] 22.3 % Critically low 42.0-54.0 [facility] Comment on above: Performed By: #### T NS, PRBC #### [facility] [address] [place] [address] Dr. Benito To Hemoglobin (Bld) [Mass/Vol] 7.2 g/dL Critically low 14.0-18.0 [facility] Comment on above: Performed By: #### T NS, PRBC #### [facility] [address] [place] [address] Dr. Benito To IG # 1.56 10e3/ul Critically high 0.00-0.03 [facility] Comment on above: Performed By: #### T NS, PRBC #### [facility] [address] [place] [address] Dr. Benito To IG % 14.4 % Critically high 0.0-0.5 [facility] Comment on above: Performed By: #### T NS, PRBC #### [facility] [address] [place] [address] Dr. Benito To LYMPH # 1.3 103/ul Normal 1.2-3.8 [facility] Comment on above: Performed By: #### T NS, PRBC #### [facility] [address] [place] [address] Dr. Benito To Lymphocytes/100 WBC (Bld) 12.1 % Critically low 20.5-60.0 [facility] Comment on above: Performed By: #### T NS, PRBC #### [facility] [address] [place] [address] Dr. Benito To MANUAL DIFF REQ NO Normal [facility] Comment on above: Performed By: #### T NS, PRBC #### [facility] [address] [place] [address] Dr. Benito To MCH (RBC) [Entitic mass] 32.4 pg Normal 25.9-34.0 [facility] Comment on above: Performed By: #### T NS, PRBC #### [facility] [address] [place] [address] Dr. Benito To MCHC (RBC) [Mass/Vol] 32.3 g/dL Normal 29.9-35.2 [facility] Comment on above: Performed By: #### T NS, PRBC #### [facility] [address] [place] [address] Dr. Benito To MCV (RBC) [Entitic vol] 100.5 fL Critically high 80.0-94.0 [facility] Comment on above: Performed By: #### T NS, PRBC #### [facility] [address] [place] [address] Dr. Benito To MONO # 1.7 103/ul Critically high 0.3-0.8 [facility] Comment on above: Performed By: #### T NS, PRBC #### [facility] [address] [place] [address] Dr. Benito To Monocytes/100 WBC (Bld) 15.3 % Critically high 1.7-12.0 [facility] Comment on above: Performed By: #### T NS, PRBC #### [facility] [address] [place] [address] Dr. Benito To NEUT # 5.7 103/ul Normal 1.4-6.5 [facility] Comment on above: Performed By: #### T NS, PRBC #### [facility] [address] [place] [address] Dr. Benito To Neutrophils/100 WBC (Bld) 52.5 % Normal 43.0-75.0 [facility] Comment on above: Performed By: #### T NS, PRBC #### [facility] [address] [place] [address] Dr. Benito To Platelet mean volume (Bld) [Entitic vol] 0.0 fL Critically low 9.5-13.5 [facility] Comment on above: Performed By: #### T NS, PRBC #### [facility] [address] [place] [address] Dr. Benito To PLT 83 103/ul Critically low 150-450 [facility] Comment on above: Performed By: #### T NS, PRBC #### [facility] [address] [place] [address] Dr. Benito To RBC 2.22 106/ul Critically low 4.70-6.10 [facility] Comment on above: Performed By: #### T NS, PRBC #### [facility] [address] [place] [address] Dr. Benito To WBC 10.8 103/ul Normal 4.0-11.0 [facility] Comment on above: Performed By: #### T NS, PRBC #### [facility] [address] [place] [address] Dr. Benito To PROF 14(COMP METB)on 023 Albumin [Mass/Vol] 2.5 g/dL Critically low 3.4-5.0 [facility] Comment on above: Performed By: #### T NS, PRBC #### [facility] [address] [place] [address] Dr. Benito To Albumin/Globulin [Mass ratio] 0.6 {ratio} Normal [facility] Comment on above: Performed By: #### T NS, PRBC #### [facility] [address] [place] [address] Dr. Benito To ALP [Catalytic activity/Vol] 133 U/L Critically high 46-116 [facility] Comment on above: Performed By: #### T NS, PRBC #### [facility] [address] [address] [address] Benito To ALT [Catalytic activity/Vol] 56 U/L Normal 16-63 [facility] Comment on above: Performed By: #### T NS, PRBC #### [facility] [address] [address] [address] Benito To Anion gap [Moles/Vol] 11.8 mmol/L Normal [facility] Comment on above: Performed By: #### T NS, PRBC #### [facility] [address] [address] [address] Benito To AST [Catalytic activity/Vol] 35 U/L Normal 15-37 [facility] Comment on above: Performed By: #### T NS, PRBC #### [facility] [address] [address] [address] Benito To Bilirubin [Mass/Vol] 0.9 mg/dL Normal 0.2-1.0 [facility] Comment on above: Performed By: #### T NS, PRBC #### [facility] [address] [address] [address] Benito To Calcium [Mass/Vol] 8.4 mg/dL Critically low 8.5-10.1 [facility] Comment on above: Performed By: #### T NS, PRBC #### [facility] [address] [address] [address] Benito To Chloride [Moles/Vol] 101 mmol/L Normal 98-107 [facility] Comment on above: Performed By: #### T NS, PRBC #### [facility] [address] [address] [address] Benito To CO2 [Moles/Vol] 32.2 mmol/L Critically high 21.0-32.0 [facility] Comment on above: Performed By: #### T NS, PRBC #### [facility] [address] [address] [address] Benito To Creatinine [Mass/Vol] 1.89 mg/dL Critically high 0.70-1.30 [facility] Comment on above: Performed By: #### T NS, PRBC #### [facility] [address] [place] [address] Dr. Benito To EGFR-AF CAMEROONIAN 41 mL/min/1.73m2 Critically low >=60 [facility] Comment on above: Performed By: #### T NS, PRBC #### [facility] [address] [place] [address] Dr. Benito To EGFR-NON AF CAMEROONIAN 34 mL/min/1.73m2 Critically low >=60 [facility] Comment on above: Performed By: #### T NS, PRBC #### [facility] [address] [place] [address] Dr. Benito To Globulin (S) [Mass/Vol] 4.5 g/dL Normal [facility] Comment on above: Performed By: #### T NS, PRBC #### [facility] [address] [place] [address] Dr. Benito To Glucose [Mass/Vol] 105 mg/dL Normal 74-106 [facility] Comment on above: Performed By: #### T NS, PRBC #### [facility] [address] [place] [address] Dr. Benito To Potassium [Moles/Vol] 2.9 mmol/L Critically low 3.5-5.1 [facility] Comment on above: Performed By: #### T NS, PRBC #### [facility] [address] [place] [address] Dr. Benito To Protein [Mass/Vol] 7.0 g/dL Normal 6.4-8.2 [facility] Comment on above: Performed By: #### T NS, PRBC #### [facility] [address] [place] [address] Dr. Benito To Sodium [Moles/Vol] 140 mmol/L Normal 136-145 [facility] Comment on above: Performed By: #### T NS, PRBC #### [facility] [address] [place] [address] Dr. Benito To Urea nitrogen [Mass/Vol] 39.0 mg/dL Critically high 7.0-18.0 [facility] Comment on above: Performed By: #### T NS, PRBC #### [facility] [address] [place] [address] Dr. Benito To Urea nitrogen/Creatinine [Mass ratio] 20.6 mg/mg Normal [facility] Comment on above: Performed By: #### T NS, PRBC #### [facility] [address] [address] [address] Benito To XR CHEST 1 Von 11-16-2022 XR CHEST 1 V EXAM: XR CHEST 1 V HISTORY: SHORTNESS OF BREATH COMPARISON: 11/15/2022 TECHNIQUE: AP portable FINDINGS: LUNGS: Moderate right basilar infiltrate obscuring the hemidiaphragm and heart border, slightly progressed. Left basilar infiltrate, stable. VASCULATURE: No increased pulmonary vasculature. PLEURA: No pneumothorax. Likely right pleural effusion CARDIAC: Marked stable cardiomegaly MEDIASTINUM: No visible mass or adenopathy. BONES: No fracture or visible bone lesion. OTHER: Negative. IMPRESSION: Slight progression of right mid to lower lung infiltrates and pleural effusion Stable left basilar infiltrate Electronically authenticated by: JOSIE MIRAMONTES Date: 2022-11-16 13:55 Normal [facility] CBC W MANUAL DIFFon 11-16-19 23 ANISOCYTOSIS 3+ Normal [facility] Comment on above: Performed By: #### T NS, PRBC #### [facility] [address] [place] [address] Dr. Benito To ATYPICAL LYMPH # 0.71 103/ul Normal [facility] Comment on above: Performed By: #### T NS, PRBC #### [facility] [address] [place] [address] Dr. Benito To ATYPICAL LYMPH % 6 % Normal [facility] Comment on above: Performed By: #### T NS, PRBC #### [facility] [address] [place] [address] Dr. Benito To BAND # 1.3 103/ul Critically high 0.0-0.3 [facility] Comment on above: Performed By: #### T NS, PRBC #### [facility] [address] [address] [address] Benito To BAND % 11 % Critically high 0-5 [facility] Comment on above: Performed By: #### T NS, PRBC #### [facility] [address] [place] [address] Dr. Benito To BASOM # 0.00 103/ul Normal 0.00-0.10 [facility] Comment on above: Performed By: #### T NS, PRBC #### [facility] [address] [place] [address] Dr. Benito To BASOM % 0.0 % Critically low 0.2-2.0 [facility] Comment on above: Performed By: #### T NS, PRBC #### [facility] [address] [place] [address] Dr. Benito To BLAST # Normal [facility] Comment on above: Performed By: #### T NS, PRBC #### [facility] [address] [address] [address] Benito To BLAST % Normal [facility] Comment on above: Performed By: #### T NS, PRBC #### [facility] [address] [place] [address] Dr. Benito To CORRECTED WBC Normal 4.0-11.0 [facility] Comment on above: Performed By: #### T NS, PRBC #### [facility] [address] [address] [address] Benito To EOS # 0.00 103/ul Normal 0.00-0.70 [facility] Comment on above: Performed By: #### T NS, PRBC #### [facility] [address] [address] [address] Benito To EOS% 0.0 % Critically low 0.9-7.0 [facility] Comment on above: Performed By: #### T NS, PRBC #### [facility] [address] [place] [address] Dr. Benito To HCT 24.3 % Critically low 42.0-54.0 [facility] Comment on above: Performed By: #### T NS, PRBC #### [facility] [address] [address] [address] Benito To HGB 7.5 g/dl Critically low 14.0-18.0 [facility] Comment on above: Performed By: #### T NS, PRBC #### [facility] [address] [address] [address] Benito To LYMPHM # 1.55 103/ul Normal 1.20-3.80 [facility] Comment on above: Performed By: #### T NS, PRBC #### [facility] [address] [address] [address] Benito To LYMPHM% 13.0 % Critically low 20.5-60.0 [facility] Comment on above: Performed By: #### T NS, PRBC #### [facility] [address] [address] [address] Benito To MCH 30.9 pg Normal 25.9-34.0 [facility] Comment on above: Performed By: #### T NS, PRBC #### [facility] [address] [address] [address] Benito To MCHC 30.9 g/dl Normal 29.9-35.2 [facility] Comment on above: Performed By: #### T NS, PRBC #### [facility] [address] [address] [address] Benito To MCV 100.0 fL Critically high 80.0-94.0 [facility] Comment on above: Performed By: #### T NS, PRBC #### [facility] [address] [address] [address] Benito To METAMYELOCYTE # Normal [facility] Comment on above: Performed By: #### T NS, PRBC #### [facility] [address] [address] [address] Benito To METAMYELOCYTE % Normal [facility] Comment on above: Performed By: #### T NS, PRBC #### [facility] [address] [address] [address] Benito To MONOM# 0.59 103/ul Normal 0.30-0.80 [facility] Comment on above: Performed By: #### T NS, PRBC #### [facility] [address] [place] [address] Dr. Benito To MONOM% 5.0 % Normal 1.7-12.0 [facility] Comment on above: Performed By: #### T NS, PRBC #### [facility] [address] [place] [address] Dr. Benito To MPV 0.0 fL Critically low 9.5-13.5 [facility] Comment on above: Performed By: #### T NS, PRBC #### [facility] [address] [place] [address] Dr. Benito To MYELOCYTE # 0.2 103/ul Normal [facility] Comment on above: Performed By: #### T NS, PRBC #### [facility] [address] [place] [address] Dr. Benito To MYELOCYTE % 2 % Normal [facility] Comment on above: Performed By: #### T NS, PRBC #### [facility] [address] [place] [address] Dr. Benito To NRBC Normal [facility] Comment on above: Performed By: #### T NS, PRBC #### [facility] [address] [place] [address] Dr. Benito To PLT 83 103/ul Critically low 150-450 [facility] Comment on above: Performed By: #### T NS, PRBC #### [facility] [address] [place] [address] Dr. Benito To RBC 2.43 106/ul Critically low 4.70-6.10 [facility] Comment on above: Performed By: #### T NS, PRBC #### [facility] [address] [place] [address] Dr. Benito To RDW 23.9 % Critically high 11.0-15.0 [facility] Comment on above: Performed By: #### T NS, PRBC #### [facility] [address] [place] [address] Dr. Benito To SEG # 7.50 103/ul Critically high 1.40-6.50 [facility] Comment on above: Performed By: #### T NS, PRBC #### [facility] [address] [place] [address] Dr. Benito To SEG % 63.0 % Normal 43.0-75.0 [facility] Comment on above: Performed By: #### T NS, PRBC #### [facility] [address] [place] [address] Dr. Benito To WBC 11.9 103/ul Critically high 4.0-11.0 [facility] Comment on above: Performed By: #### T NS, PRBC #### [facility] [address] [place] [address] Dr. Benito To PROF 14(COMP METB)on 023 Albumin [Mass/Vol] 2.6 g/dL Critically low 3.4-5.0 [facility] Comment on above: Performed By: #### T NS, PRBC #### [facility] [address] [place] [address] Dr. Benito To Albumin/Globulin [Mass ratio] 0.6 {ratio} Normal [facility] Comment on above: Performed By: #### T NS, PRBC #### [facility] [address] [place] [address] Dr. Benito To ALP [Catalytic activity/Vol] 139 U/L Critically high 46-116 [facility] Comment on above: Performed By: #### T NS, PRBC #### [facility] [address] [place] [address] Dr. Benito To ALT [Catalytic activity/Vol] 52 U/L Normal 16-63 [facility] Comment on above: Performed By: #### T NS, PRBC #### [facility] [address] [place] [address] Dr. Benito To Anion gap [Moles/Vol] 12.4 mmol/L Normal [facility] Comment on above: Performed By: #### T NS, PRBC #### [facility] [address] [place] [address] Dr. Benito To AST [Catalytic activity/Vol] 31 U/L Normal 15-37 [facility] Comment on above: Performed By: #### T NS, PRBC #### [facility] [address] [place] [address] Dr. Benito To Bilirubin [Mass/Vol] 1.3 mg/dL Critically high 0.2-1.0 [facility] Comment on above: Performed By: #### T NS, PRBC #### [facility] [address] [place] [address] Dr. Benito To Calcium [Mass/Vol] 8.2 mg/dL Critically low 8.5-10.1 [facility] Comment on above: Performed By: #### T NS, PRBC #### [facility] [address] [place] [address] Dr. Benito To Chloride [Moles/Vol] 100 mmol/L Normal 98-107 [facility] Comment on above: Performed By: #### T NS, PRBC #### [facility] [address] [place] [address] Dr. Benito To CO2 [Moles/Vol] 32.5 mmol/L Critically high 21.0-32.0 [facility] Comment on above: Performed By: #### T NS, PRBC #### [facility] [address] [place] [address] Dr. Benito To Creatinine [Mass/Vol] 1.85 mg/dL Critically high 0.70-1.30 [facility] Comment on above: Performed By: #### T NS, PRBC #### [facility] [address] [place] [address] Dr. Benito To EGFR-AF CAMEROONIAN 43 mL/min/1.73m2 Critically low >=60 [facility] Comment on above: Performed By: #### T NS, PRBC #### [facility] [address] [place] [address] Dr. Benito To EGFR-NON AF CAMEROONIAN 35 mL/min/1.73m2 Critically low >=60 [facility] Comment on above: Performed By: #### T NS, PRBC #### [facility] [address] [place] [address] Dr. Benito To Globulin (S) [Mass/Vol] 4.6 g/dL Normal [facility] Comment on above: Performed By: #### T NS, PRBC #### [facility] [address] [place] [address] Dr. Benito To Glucose [Mass/Vol] 124 mg/dL Critically high 74-106 [facility] Comment on above: Performed By: #### T NS, PRBC #### [facility] [address] [place] [address] Dr. Benito To Potassium [Moles/Vol] 3.9 mmol/L Normal 3.5-5.1 [facility] Comment on above: Performed By: #### T NS, PRBC #### [facility] [address] [place] [address] Dr. Benito To Protein [Mass/Vol] 7.2 g/dL Normal 6.4-8.2 [facility] Comment on above: Performed By: #### T NS, PRBC #### [facility] [address] [place] [address] Dr. Benito To Sodium [Moles/Vol] 141 mmol/L Normal 136-145 [facility] Comment on above: Performed By: #### T NS, PRBC #### [facility] [address] [place] [address] Dr. Benito To Urea nitrogen [Mass/Vol] 36.0 mg/dL Critically high 7.0-18.0 [facility] Comment on above: Performed By: #### T NS, PRBC #### [facility] [address] [place] [address] Dr. Benito To Urea nitrogen/Creatinine [Mass ratio] 19.5 mg/mg Normal [facility] Comment on above: Performed By: #### T NS, PRBC #### [facility] [address] [place] [address] Dr. Benito To XR CHEST 1 Von 11-15-2022 XR CHEST 1 V EXAM: XR CHEST 1 V HISTORY: SHORTNESS OF BREATH COMPARISON: 11/13/2022 TECHNIQUE: AP portable FINDINGS: LUNGS: Interval progression of moderate bibasilar infiltrates now completely obscuring the hemidiaphragms and partially obscuring the heart borders. VASCULATURE: No increased pulmonary vasculature. PLEURA: No pneumothorax. Likely bilateral pleural effusions CARDIAC: Stable cardiomegaly MEDIASTINUM: No visible mass or adenopathy. BONES: No fracture or visible bone lesion. OTHER: Negative. IMPRESSION: Progression of moderate bibasilar infiltrates likely parenchymal consolidation/pneumonia and pleural effusions Electronically authenticated by: JOSIE MIRAMONTES Date: 2022-11-15 09:46 Normal [facility] CBC AUTO DIFFon 11-14-2022 BASO # 0.0 103/ul Normal 0.0-0.1 [facility] Comment on above: Performed By: #### H GBHCT #### [facility] [address] [place] [address] Dr. Benito To Basophils/100 WBC (Bld) 0.3 % Normal 0.2-2.0 [facility] Comment on above: Performed By: #### H GBHCT #### [facility] [address] [place] [address] Dr. Benito To EO # 0.0 103/ul Normal 0.0-0.7 [facility] Comment on above: Performed By: #### H GBHCT #### [facility] [address] [place] [address] Dr. Benito To Eosinophils/100 WBC (Bld) 0.3 % Critically low 0.9-7.0 [facility] Comment on above: Performed By: #### H GBHCT #### [facility] [address] [place] [address] Dr. Benito To Erythrocyte distribution width (RBC) [Ratio] 23.7 % Critically high 11.0-15.0 [facility] Comment on above: Performed By: #### H GBHCT #### [facility] [address] [place] [address] Dr. Benito To Hematocrit (Bld) [Volume fraction] 23.7 % Critically low 42.0-54.0 [facility] Comment on above: Performed By: #### H GBHCT #### [facility] [address] [address] [address] Benito To Hemoglobin (Bld) [Mass/Vol] 7.6 g/dL Critically low 14.0-18.0 [facility] Comment on above: Performed By: #### H GBHCT #### [facility] [address] [address] [address] Benito To IG # 0.82 10e3/ul Critically high 0.00-0.03 [facility] Comment on above: Performed By: #### H GBHCT #### [facility] [address] [place] [address] Dr. Benito To IG % 7.0 % Critically high 0.0-0.5 [facility] Comment on above: Performed By: #### H GBHCT #### [facility] [address] [place] [address] Dr. Benito To LYMPH # 0.8 103/ul Critically low 1.2-3.8 [facility] Comment on above: Performed By: #### H GBHCT #### [facility] [address] [place] [address] Dr. Benito To Lymphocytes/100 WBC (Bld) 7.0 % Critically low 20.5-60.0 [facility] Comment on above: Performed By: #### H GBHCT #### [facility] [address] [address] [address] Benito To MANUAL DIFF REQ NO Normal [facility] Comment on above: Performed By: #### H GBHCT #### [facility] [address] [address] [address] Benito To MCH (RBC) [Entitic mass] 31.9 pg Normal 25.9-34.0 [facility] Comment on above: Performed By: #### H GBHCT #### [facility] [address] [address] [address] Benito To MCHC (RBC) [Mass/Vol] 32.1 g/dL Normal 29.9-35.2 [facility] Comment on above: Performed By: #### H GBHCT #### [facility] [address] [address] [address] Benito To MCV (RBC) [Entitic vol] 99.6 fL Critically high 80.0-94.0 [facility] Comment on above: Performed By: #### H GBHCT #### [facility] [address] [address] [address] Benito To MONO # 2.3 103/ul Critically high 0.3-0.8 [facility] Comment on above: Performed By: #### H GBHCT #### [facility] [address] [place] [address] Dr. Benito To Monocytes/100 WBC (Bld) 19.2 % Critically high 1.7-12.0 [facility] Comment on above: Performed By: #### H GBHCT #### [facility] [address] [address] [address] Benito To NEUT # 7.8 103/ul Critically high 1.4-6.5 [facility] Comment on above: Performed By: #### H GBHCT #### [facility] [address] [place] [address] Dr. Benito To Neutrophils/100 WBC (Bld) 66.2 % Normal 43.0-75.0 [facility] Comment on above: Performed By: #### H GBHCT #### [facility] [address] [address] [address] Benito To Platelet mean volume (Bld) [Entitic vol] 14.7 fL Critically high 9.5-13.5 [facility] Comment on above: Performed By: #### H GBHCT #### [facility] [address] [address] [address] Benito To PLT 73 103/ul Critically low 150-450 [facility] Comment on above: Performed By: #### H GBHCT #### [facility] [address] [address] [address] Benito To RBC 2.38 106/ul Critically low 4.70-6.10 [facility] Comment on above: Performed By: #### H GBHCT #### [facility] [address] [address] [address] Benito To WBC 11.7 103/ul Critically high 4.0-11.0 [facility] Comment on above: Performed By: #### H GBHCT #### [facility] [address] [place] [address] Dr. Benito To CBC W MANUAL DIFFon 11-15-19 ANISOCYTOSIS 3+ Normal [facility] Comment on above: Performed By: #### T NS, PRBC #### [facility] [address] [place] [address] Dr. Benito To ATYPICAL LYMPH # Normal [facility] Comment on above: Performed By: #### T NS, PRBC #### [facility] [address] [place] [address] Dr. Benito To ATYPICAL LYMPH % Normal [facility] Comment on above: Performed By: #### T NS, PRBC #### [facility] [address] [place] [address] Dr. Benito To BAND # 0.2 103/ul Normal 0.0-0.3 [facility] Comment on above: Performed By: #### T NS, PRBC #### [facility] [address] [place] [address] Dr. Benito To BAND % 2 % Normal 0-5 [facility] Comment on above: Performed By: #### T NS, PRBC #### [facility] [address] [place] [address] Dr. Benito To BASOM # 0.00 103/ul Normal 0.00-0.10 [facility] Comment on above: Performed By: #### T NS, PRBC #### [facility] [address] [place] [address] Dr. Benito To BASOM % 0.0 % Critically low 0.2-2.0 [facility] Comment on above: Performed By: #### T NS, PRBC #### [facility] [address] [place] [address] Dr. Benito To BLAST # Normal [facility] Comment on above: Performed By: #### T NS, PRBC #### [facility] [address] [place] [address] Dr. Benito To BLAST % Normal [facility] Comment on above: Performed By: #### T NS, PRBC #### [facility] [address] [place] [address] Dr. Benito To CORRECTED WBC Normal 4.0-11.0 [facility] Comment on above: Performed By: #### T NS, PRBC #### [facility] [address] [place] [address] Dr. Benito To EOS # 0.00 103/ul Normal 0.00-0.70 [facility] Comment on above: Performed By: #### T NS, PRBC #### [facility] [address] [place] [address] Dr. Benito To EOS% 0.0 % Critically low 0.9-7.0 [facility] Comment on above: Performed By: #### T NS, PRBC #### [facility] [address] [place] [address] Dr. Benito To HCT 20.3 % Critically low 42.0-54.0 [facility] Comment on above: Performed By: #### T NS, PRBC #### [facility] [address] [place] [address] Dr. Benito To HGB 6.4 g/dl Critically low 14.0-18.0 [facility] Comment on above: Performed By: #### T NS, PRBC #### [facility] [address] [place] [address] Dr. Benito To LYMPHM # 1.13 103/ul Critically low 1.20-3.80 [facility] Comment on above: Performed By: #### T NS, PRBC #### [facility] [address] [address] [address] Benito To LYMPHM% 10.0 % Critically low 20.5-60.0 [facility] Comment on above: Performed By: #### T NS, PRBC #### [facility] [address] [place] [address] Dr. Benito To MCH 31.5 pg Normal 25.9-34.0 [facility] Comment on above: Performed By: #### T NS, PRBC #### [facility] [address] [place] [address] Dr. Benito To MCHC 31.5 g/dl Normal 29.9-35.2 [facility] Comment on above: Performed By: #### T NS, PRBC #### [facility] [address] [place] [address] Dr. Benito To MCV 100.0 fL Critically high 80.0-94.0 [facility] Comment on above: Performed By: #### T NS, PRBC #### [facility] [address] [place] [address] Dr. Benito To METAMYELOCYTE # 0.5 103/ul Normal [facility] Comment on above: Performed By: #### T NS, PRBC #### [facility] [address] [place] [address] Dr. Benito To METAMYELOCYTE % 4 % Normal [facility] Comment on above: Performed By: #### T NS, PRBC #### [facility] [address] [place] [address] Dr. Benito To MICROCYTOSIS 1+ Normal [facility] Comment on above: Performed By: #### T NS, PRBC #### [facility] [address] [place] [address] Dr. Benito To MONOM# 0.90 103/ul Critically high 0.30-0.80 [facility] Comment on above: Performed By: #### T NS, PRBC #### [facility] [address] [place] [address] Dr. Benito To MONOM% 8.0 % Normal 1.7-12.0 [facility] Comment on above: Performed By: #### T NS, PRBC #### [facility] [address] [address] [address] Benito To MYELOCYTE # Normal [facility] Comment on above: Performed By: #### T NS, PRBC #### [facility] [address] [place] [address] Dr. Benito To MYELOCYTE % Normal [facility] Comment on above: Performed By: #### T NS, PRBC #### [facility] [address] [place] [address] Dr. Benito To NRBC Normal [facility] Comment on above: Performed By: #### T NS, PRBC #### [facility] [address] [place] [address] Dr. Benito To PLT 78 103/ul Critically low 150-450 [facility] Comment on above: Performed By: #### T NS, PRBC #### [facility] [address] [place] [address] Dr. Benito To RBC 2.03 106/ul Critically low 4.70-6.10 [facility] Comment on above: Performed By: #### T NS, PRBC #### [facility] [address] [place] [address] Dr. Benito To RDW 25.1 % Critically high 11.0-15.0 [facility] Comment on above: Performed By: #### T NS, PRBC #### [facility] [address] [place] [address] Dr. Benito To SEG # 8.59 103/ul Critically high 1.40-6.50 [facility] Comment on above: Performed By: #### T NS, PRBC #### [facility] [address] [place] [address] Dr. Benito To SEG % 76.0 % Critically high 43.0-75.0 [facility] Comment on above: Performed By: #### T NS, PRBC #### [facility] [address] [place] [address] Dr. Benito To WBC 11.3 103/ul Critically high 4.0-11.0 [facility] [facility]: Performed By: #### T NS, PRBC #### [facility] [id number] Benito To ECHOCARDIO M/2D COMPLETEon 0 11-14-2022 ECHOCARDIO M/2D COMPLETE Patient: SANDIP BROUSSARD Exam Date: 11/14/2022 : 1940 Gender:M Ordering : DR FLASH PEARL . Admission #: [id number] Family : Order #: [id number] CLICK HERE TO VIEW EXAM ECHOCARDIOGRAM REPORT PROCEDURE: CARDIO PULMONARY ECHOCARDIO M/2D COMP INDICATIONS: Shortness of breath, edema, PTCA COMPARISON: None. DESCRIPTION: COMPLETE ECHOCARDIOGRAM Real-time transthoracic echocardiography with 2D, M-mode, spectral and color flow Doppler performed. QUALITY: Technical quality was good. LEFT VENTRICLE: Mild dilatation. Mild concentric left ventricular hypertrophy. Systolic function is mildly to moderately reduced. LV EF: Mildly to moderately reduced left ventricular ejection fraction, (40%). DIASTOLIC: Not adequately assessed due to heart rhythm. ATRIAL SEPTUM: Visually appears intact. LEFT ATRIUM: Severe dilatation. RIGHT ATRIUM: Severe dilatation. RIGHT VENTRICLE: Moderate dilatation. Mildly reduced systolic function. TRICUSPID VALVE: Normal mobility and thickness. No stenosis with mild regurgitation. Doppler studies reveal severely (>60) elevated right sided pressures. RVSP 69 mmHg MITRAL VALVE: Mildly thickened with normal mobility. No evidence of mitral valve stenosis. There is no mitral annular calcification. Moderate to severe mitral regurgitation. AORTIC VALVE: Normal trileaflet appearance. No visible sclerosis. Normal leaflet mobility. No evidence of aortic valve stenosis. No aortic regurgitation. AORTIC ROOT: Normal diameter and appearance. PULMONIC VALVE: Normal thickness and mobility. No stenosis. Mild regurgitation. PERICARDIUM: Mild to moderate pericardial effusion. IVC: IVC is normal in size with no collapse. PLEURA: Pleural effusion visualized. CONCLUSION: 1. Left ventricular systolic function is mildly to moderately reduced. LVEF is 40%. 2. Moderately dilated right ventricle with mildly reduced systolic function. 3. Moderate to severe mitral regurgitation. 4. Mild tricuspid regurgitation. 5. Severely elevated right-sided pressures. RVSP 69 mmHg. 6. Mild to moderate pericardial effusion. No echocardiographic evidence of cardiac tamponade. Adult Echocardiography Procedure Report Left Ventricle LVEDD (3.7 - 5.6 cm): 6.18 cm LVESD (2.2 - 4.0 cm): 5.29 cm LVIVS thickness (0.6 - 1.2 cm): 0.97 cm LVPW thickness (0.5 - 1.0 cm): 1.23 cm LVOT Max Gradient: 3.01 mm[Hg], 1.49 mm[Hg] Peak Velocity (LVOT): 0.87 m/s, 0.61 m/s LVOT Diameter 2.09 cm Left Ventricular Ejection Fraction: 40 % Left Atrium LA Volume Index (2D A2C): 173.12 ml, 173.12 ml Left Atrium Systolic Dimension: 5.56 cm Mitral Valve Mitral Valve E-Wave Peak Velocity: 1.27 m/s, 1.30 m/s Right Ventricle Aorta AO Root Diam: 3.31 cm Aortic Valve AoV Area (Peak Aftab): 1.70 cm2, 1.99 cm2 Peak Velocity(Antegrade Flow): 1.49 m/s Peak Gradient(Antegrade Flow): 8.86 mm[Hg] Tricuspid Valve Peak Velocity (Regurgitant Flow): 3.72 m/s, 4.01 m/s, 3.79 m/s Pulmonic Valve Mean Gradient: 3.20 mm[Hg], 3.05 mm[Hg] Mean Velocity: 0.80 m/s, 0.79 m/s Peak Velocity: 1.46 m/s, 1.44 m/s, 1.15 m/s Peak Gradient: 8.50 mm[Hg], 8.27 mm[Hg], 5.31 mm[Hg] Right Atrium Right Atrium Systolic Pressure: 106.69 ml, 106.69 ml Dictated by: Sheng Gomez M.D. on 11/14/2022 at 19:59 Approved by: Sheng Gomez M.D. on 11/14/2022 at 20:08 [facility] PRBC LEUKOREDUCEDon 11-15-19 23 ABO and Rh group Nom (Bld) Cross Match Result Compatible Unit Blood Type A Pos Unit Number [id number] Status Information Issued Product ID Red Blood Cells Product Code [id number] Issue Date/Time [id number] [facility] Comment on above: Performed By: #### P RBC, TNS #### [facility] [address] [address] [address] Benito To PROF 14(COMP METB)on 023 Albumin [Mass/Vol] 2.8 g/dL Critically low 3.4-5.0 [facility] Comment on above: Performed By: #### H H #### [facility] [address] [place] [address] Dr. Benito To Albumin/Globulin [Mass ratio] 0.6 {ratio} Normal [facility] Comment on above: Performed By: #### H H #### [facility] [address] [place] [address] Dr. Benito To ALP [Catalytic activity/Vol] 146 U/L Critically high 46-116 [facility] Comment on above: Performed By: #### H H #### [facility] [address] [place] [address] Dr. Benito To ALT [Catalytic activity/Vol] 55 U/L Normal 16-63 [facility] Comment on above: Performed By: #### H H #### [facility] [address] [place] [address] Dr. Benito To Anion gap [Moles/Vol] 12.9 mmol/L Normal [facility] Comment on above: Performed By: #### H H #### [facility] [address] [place] [address] Dr. Benito To AST [Catalytic activity/Vol] 30 U/L Normal 15-37 [facility] Comment on above: Performed By: #### H H #### [facility] [address] [place] [address] Dr. Benito To Bilirubin [Mass/Vol] 1.3 mg/dL Critically high 0.2-1.0 [facility] Comment on above: Performed By: #### H H #### [facility] [address] [place] [address] Dr. Benito To Calcium [Mass/Vol] 8.6 mg/dL Normal 8.5-10.1 [facility] Comment on above: Performed By: #### H H #### [facility] [address] [address] [address] Benito To Chloride [Moles/Vol] 103 mmol/L Normal 98-107 [facility] Comment on above: Performed By: #### H H #### [facility] [address] [address] [address] Benito To CO2 [Moles/Vol] 32.2 mmol/L Critically high 21.0-32.0 [facility] Comment on above: Performed By: #### H H #### [facility] [address] [address] [address] Benito To Creatinine [Mass/Vol] 1.87 mg/dL Critically high 0.70-1.30 [facility] Comment on above: Performed By: #### H H #### [facility] [address] [place] [address] Dr. Benito To EGFR-AF CAMEROONIAN 42 mL/min/1.73m2 Critically low >=60 [facility] Comment on above: Performed By: #### H H #### [facility] [address] [place] [address] Dr. Benito To EGFR-NON AF CAMEROONIAN 35 mL/min/1.73m2 Critically low >=60 [facility] Comment on above: Performed By: #### H H #### [facility] [address] [place] [address] Dr. Benito To Globulin (S) [Mass/Vol] 4.6 g/dL Normal [facility] Comment on above: Performed By: #### H H #### [facility] [address] [address] [address] Benito To Glucose [Mass/Vol] 113 mg/dL Critically high 74-106 [facility] Comment on above: Performed By: #### H H #### [facility] [address] [address] [address] Benito To Potassium [Moles/Vol] 4.1 mmol/L Normal 3.5-5.1 [facility] Comment on above: Performed By: #### H H #### [facility] [address] [address] [address] Benito To Protein [Mass/Vol] 7.4 g/dL Normal 6.4-8.2 [facility] Comment on above: Performed By: #### H H #### [facility] [address] [address] [address] Benito To Sodium [Moles/Vol] 144 mmol/L Normal 136-145 [facility] Comment on above: Performed By: #### H H #### [facility] [address] [place] [address] Dr. Benito To Urea nitrogen [Mass/Vol] 39.0 mg/dL Critically high 7.0-18.0 [facility] Comment on above: Performed By: #### H H #### [facility] [address] [place] [address] Dr. Benito To Urea nitrogen/Creatinine [Mass ratio] 20.9 mg/mg Normal [facility] Comment on above: Performed By: #### H H #### [facility] [address] [place] [address] Dr. Benito To BNPon 11-13-2022 Natriuretic peptide B (Bld) [Mass/Vol] 5483.0 pg/mL Critically high <=1,800.0 [facility] Comment on above: Performed By: #### H GBHCT #### [facility] [address] [place] [address] Dr. Benito To CBC W MANUAL DIFFon 11-14-19 23 ANISOCYTOSIS SLIGHT Normal [facility] Comment on above: Performed By: #### T NS, PRBC #### [facility] [address] [place] [address] Dr. Benito To ATYPICAL LYMPH # Normal [facility] Comment on above: Performed By: #### T NS, PRBC #### [facility] [address] [place] [address] Dr. Benito To ATYPICAL LYMPH % Normal [facility] Comment on above: Performed By: #### T NS, PRBC #### [facility] [address] [place] [address] Dr. Benito To BAND # 0.2 103/ul Normal 0.0-0.3 [facility] Comment on above: Performed By: #### T NS, PRBC #### [facility] [address] [place] [address] Dr. Benito To BAND % 2 % Normal 0-5 [facility] Comment on above: Performed By: #### T NS, PRBC #### [facility] [address] [place] [address] Dr. Benito To BASOM # 0.00 103/ul Normal 0.00-0.10 [facility] Comment on above: Performed By: #### T NS, PRBC #### [facility] [address] [place] [address] Dr. Benito To BASOM % 0.0 % Critically low 0.2-2.0 [facility] Comment on above: Performed By: #### T NS, PRBC #### [facility] [address] [place] [address] Dr. Benito To BLAST # Normal [facility] Comment on above: Performed By: #### T NS, PRBC #### [facility] [address] [place] [address] Dr. Benito To BLAST % Normal [facility] Comment on above: Performed By: #### T NS, PRBC #### [facility] [address] [place] [address] Dr. Benito To CORRECTED WBC Normal 4.0-11.0 [facility] Comment on above: Performed By: #### T NS, PRBC #### [facility] [address] [place] [address] Dr. Benito To EOS # 0.00 103/ul Normal 0.00-0.70 [facility] Comment on above: Performed By: #### T NS, PRBC #### [facility] [address] [place] [address] Dr. Benito To EOS% 0.0 % Critically low 0.9-7.0 [facility] Comment on above: Performed By: #### T NS, PRBC #### [facility] [address] [address] [address] Benito To HCT 23.1 % Critically low 42.0-54.0 [facility] Comment on above: Performed By: #### T NS, PRBC #### [facility] [address] [address] [address] Benito To HGB 7.2 g/dl Critically low 14.0-18.0 [facility] Comment on above: Performed By: #### T NS, PRBC #### [facility] [address] [address] [address] Benito To LYMPHM # 1.38 103/ul Normal 1.20-3.80 [facility] Comment on above: Performed By: #### T NS, PRBC #### [facility] [address] [place] [address] Dr. Benito To LYMPHM% 13.0 % Critically low 20.5-60.0 [facility] Comment on above: Performed By: #### T NS, PRBC #### [facility] [address] [place] [address] Dr. Benito To MACROCYTOSIS SLIGHT Normal [facility] Comment on above: Performed By: #### T NS, PRBC #### [facility] [address] [place] [address] Dr. Benito To MCH 32.0 pg Normal 25.9-34.0 [facility] Comment on above: Performed By: #### T NS, PRBC #### [facility] [address] [place] [address] Dr. Benito To MCHC 31.2 g/dl Normal 29.9-35.2 [facility] Comment on above: Performed By: #### T NS, PRBC #### [facility] [address] [place] [address] Dr. Benito To MCV 102.7 fL Critically high 80.0-94.0 [facility] Comment on above: Performed By: #### T NS, PRBC #### [facility] [address] [place] [address] Dr. Benito To METAMYELOCYTE # Normal [facility] Comment on above: Performed By: #### T NS, PRBC #### [facility] [address] [place] [address] Dr. Benito To METAMYELOCYTE % Normal [facility] Comment on above: Performed By: #### T NS, PRBC #### [facility] [address] [address] [address] Benito To MONOM# 0.74 103/ul Normal 0.30-0.80 [facility] Comment on above: Performed By: #### T NS, PRBC #### [facility] [address] [place] [address] Dr. Benito To MONOM% 7.0 % Normal 1.7-12.0 [facility] Comment on above: Performed By: #### T NS, PRBC #### [facility] [address] [place] [address] Dr. Benito To MPV 0.0 fL Critically low 9.5-13.5 [facility] Comment on above: Performed By: #### T NS, PRBC #### [facility] [address] [place] [address] Dr. Benito To MYELOCYTE # 0.1 103/ul Normal [facility] Comment on above: Performed By: #### T NS, PRBC #### [facility] [address] [place] [address] Dr. Benito To MYELOCYTE % 1 % Normal [facility] Comment on above: Performed By: #### T NS, PRBC #### [facility] [address] [place] [address] Dr. Benito To NRBC Normal [facility] Comment on above: Performed By: #### T NS, PRBC #### [facility] [address] [place] [address] Dr. Benito To PLT 67 103/ul Critically low 150-450 [facility] Comment on above: Performed By: #### T NS, PRBC #### [facility] [address] [place] [address] Dr. Benito To RBC 2.25 106/ul Critically low 4.70-6.10 [facility] Comment on above: Performed By: #### T NS, PRBC #### [facility] [address] [address] [address] Benito To RDW 25.2 % Critically high 11.0-15.0 [facility] Comment on above: Performed By: #### T NS, PRBC #### [facility] [address] [address] [address] Benito To SEG # 8.16 103/ul Critically high 1.40-6.50 [facility] Comment on above: Performed By: #### T NS, PRBC #### [facility] [address] [address] [address] Benito To SEG % 77.0 % Critically high 43.0-75.0 [facility] Comment on above: Performed By: #### T NS, PRBC #### [facility] [address] [place] [address] Dr. Benito To WBC 10.6 103/ul Normal 4.0-11.0 [facility] Comment on above: Performed By: #### T NS, PRBC #### [facility] [address] [place] [address] Dr. Benito To CNPNon 11-13-2022 CNPN Normal [facility] Covid-19 PCR (CVDTBH)on 10-26 SARS-CoV-2 (COVID-19) RNA JOSSIE+probe Ql (Unsp spec) Not detected Normal NOT DETECTED [facility] Comment on above: Result Comment: When diagnostic testing is negative, the possibility of a false negative should be considered in the context of a patient's recent exposures and the presence of clinical signs and symptoms consistent with SARS-CoV-2. This test is not yet approved or cleared by the [place] FDA. When there are no FDA-approved or cleared tests available, and other criteria are met, FDA can make tests available under an emergency access mechanism called an Emergency Use Authorization (EUA). The EUA for this test is supported by the [place] of Health and Human Service's declaration that circumstances exist to justify the emergency use of in vitro diagnostics for the detection and/or diagnosis of the virus that causes COVID-19. This EUA will remain in effect for the duration of the COVID-19 declaration justifying emergency of IVDs, unless it is terminated or revoked by the FDA (after which the test may no longer be used). Performed By: #### T ZEHRA, PRBC #### [facility] [address] [place] [address] Dr. Benito To FERRITINon 11-13-2022 Ferritin [Mass/Vol] 6375.0 ng/mL Critically high 26.0-388. 0 [facility] Comment on above: Performed By: #### T ZEHRA, PRBC #### [facility] [address] [place] [address] Dr. Benito To IRON AND TIBCon 11-13-2022 Iron [Mass/Vol] 148.0 ug/dL Normal 65.0-175.0 [facility] Comment on above: Performed By: #### T ZEHRA, PRBC #### [facility] [address] [place] [address] Dr. Benito To TIBC DIRECT 145.0 ug/dL Critically low 250.0-450.0 [facility] Comment on above: Performed By: #### T ZEHRA, PRBC #### [facility] [address] [place] [address] Dr. Benito To PROF 14(COMP METB)on 023 Albumin [Mass/Vol] 2.7 g/dL Critically low 3.4-5.0 [facility] [place] Comment on above: Performed By: #### H GBHCT #### [facility] [address] [place] [address] Dr. Benito To Albumin/Globulin [Mass ratio] 0.6 {ratio} Normal [facility] Comment on above: Performed By: #### H GBHCT #### [facility] [address] [place] [address] Dr. Benito To ALP [Catalytic activity/Vol] 140 U/L Critically high 46-116 [facility] Comment on above: Performed By: #### H GBHCT #### [facility] [address] [address] [address] Benito To ALT [Catalytic activity/Vol] 53 U/L Normal 16-63 [facility] Comment on above: Performed By: #### H GBHCT #### [facility] [address] [address] [address] Benito To Anion gap [Moles/Vol] 14.4 mmol/L Normal [facility] Comment on above: Performed By: #### H GBHCT #### [facility] [address] [address] [address] Benito To AST [Catalytic activity/Vol] 31 U/L Normal 15-37 [facility] Comment on above: Performed By: #### H GBHCT #### [facility] [address] [address] [address] Benito To Bilirubin [Mass/Vol] 1.3 mg/dL Critically high 0.2-1.0 [facility] Comment on above: Performed By: #### H GBHCT #### [facility] [address] [address] [address] Benito To Calcium [Mass/Vol] 8.8 mg/dL Normal 8.5-10.1 [facility] Comment on above: Performed By: #### H GBHCT #### [facility] [address] [address] [address] Benito To Chloride [Moles/Vol] 103 mmol/L Normal 98-107 [facility] Comment on above: Performed By: #### H GBHCT #### [facility] [address] [address] [address] Benito To CO2 [Moles/Vol] 29.7 mmol/L Normal 21.0-32.0 [facility] Comment on above: Performed By: #### H GBHCT #### [facility] [address] [address] [address] Benito To Creatinine [Mass/Vol] 1.95 mg/dL Critically high 0.70-1.30 [facility] Comment on above: Performed By: #### H GBHCT #### [facility] [address] [address] [address] Benito To EGFR-AF CAMEROONIAN 40 mL/min/1.73m2 Critically low >=60 [facility] Comment on above: Performed By: #### H GBHCT #### [facility] [address] [address] [address] Benito To EGFR-NON AF CAMEROONIAN 33 mL/min/1.73m2 Critically low >=60 [facility] Comment on above: Performed By: #### H GBHCT #### [facility] [address] [address] [address] Benito oT Globulin (S) [Mass/Vol] 4.7 g/dL Normal [facility] Comment on above: Performed By: #### H GBHCT #### [facility] [address] [address] [address] Benito To Glucose [Mass/Vol] 198 mg/dL Critically high 74-106 T [facility] Comment on above: Performed By: #### H GBHCT #### [facility] [address] [address] [address] Benito To Potassium [Moles/Vol] 4.1 mmol/L Normal 3.5-5.1 [facility] Comment on above: Performed By: #### H GBHCT #### [facility] [address] [address] [address] Benito To Protein [Mass/Vol] 7.4 g/dL Normal 6.4-8.2 [facility] Comment on above: Performed By: #### H GBHCT #### [facility] [address] [address] [address] Benito To Sodium [Moles/Vol] 143 mmol/L Normal 136-145 [facility] Comment on above: Performed By: #### H GBHCT #### [facility] [address] [address] [address] Benito To Urea nitrogen [Mass/Vol] 39.0 mg/dL Critically high 7.0-18.0 [facility] Comment on above: Performed By: #### H GBHCT #### [facility] [address] [place], [place] [address] Dr. Benito To Urea nitrogen/Creatinine [Mass ratio] 20.0 mg/mg Normal [facility] Comment on above: Performed By: #### H GBHCT #### [facility] [address] [place], [place] [address] Dr. Benito To TROPONIN, HIGH SENSITIVITYon 11-13-2022 HSTROP 47.8 pg/mL Normal 4.0-76.1 [facility] Comment on above: Result Comment: CUT- OFF POINTS HAVE BEEN ESTABLISHED BASED ON THE FOURTH UNIVERSAL DEFINITIONS OF MYOCARDIAL INFARCTION. THE UPPER REFERENCE LIMIT (URL) OF TROPONIN, DEFINED THE 99TH PERCENTILE OF cTnI DISTRIBUTION IN A REFERENCE POPULATION, HAS BEEN CONFIRMED THE DECISION THRESHOLD FOR [place] DIAGNOSIS. Performed By: #### H GBHCT #### [facility] [address] [address] [address] Benito To TYPE AND SCREENon 11-13-2022 TYPE AND SCREEN Negative Normal [facility] Comment on above: Performed By: #### T NS, PRBC #### [facility] [address] [address] [address] Benito To XR CHEST 1 Von 11-13-2022 XR CHEST 1 V EXAMINATION: XR CHES T 1 V HISTORY: Shortness of breath COMPARISON: XR chest 12/11/2021, 11/17/2021 FINDINGS: LUNGS: Opacities partially obscuring the right and left lung bases. Upper lung regions are clear. VASCULATURE: No increased pulmonary vasculature. PLEURA: No pneumothorax, effusion, or pleural thickening. CARDIAC: Stable cardiomegaly. MEDIASTINUM: No visible mass or adenopathy. BONES: No fracture or visible bone lesion. OTHER: Negative. IMPRESSION: 1. Moderate bibasilar infiltrates less than seen on 12/11/2021, but greater than seen on 11/17/2021; recurrent pneumonia versus pulmonary edema. Electronically authenticated by: OUMOU MONTIEL Date: 2022-11-13 13:36 Normal [facility] PRBC LEUKOREDUCEDon 11-11-19 23 ABO and Rh group Nom (Bld) Cross Match Result Compatible Unit Blood Type A Pos Unit Number [id number] Status Information Transfused Product ID Red Blood Cells Product Code [id number] Cross Match Result Compatible Unit Blood Type A Pos Unit Number [id number] Status Information Transfused Product ID Red Blood Cells Product Code [id number] Normal [facility] Comment on above: Performed By: #### H H #### [facility] [address] [place] [address] Dr. Benito To CBC W Auto Differential pane l (Bld)on 11-06-2022 Anisocytosis Ql (Bld) Present Normal [facility] Comment on above: Order Comment: Speci men Type: BLOOD SPECIMENOrdering Facility: [facility] Address: [address] [place], [place] [address] Performed By: #### 5 7021-8 ####[facility] LABCLIA [id number] [address] LABCLIA [id number] [place] [address] Basophils (Bld) [#/Vol] 0.00 10*3/uL Normal <0.11 [facility] Comment on above: Order Comment: Speci men Type: BLOOD SPECIMENOrdering Facility: [facility] Address: [address] [place] [address] Performed By: #### 5 7021-8 ####[facility] LABCLIA [id number] [address] LABCLIA [id number] [place] [address] Basophils/100 WBC (Bld) 0.0 % Normal [facility] Comment on above: Order Comment: Speci men Type: BLOOD SPECIMENOrdering Facility: [facility] Address: [address] [place] [address] Performed By: #### 5 7021-8 ####[facility] LABCLIA [id number] [address] LABCLIA [id number] [place] [address] Differential cell count method Nom (Bld) Manual Normal [facility] Comment on above: Order Comment: Speci men Type: BLOOD SPECIMENOrdering Facility: [facility] Address: [address] [place] [address] Performed By: #### 5 7021-8 ####[facility] LABCLIA [id number] [address] LABCLIA [id number] [place] [address] Eosinophils (Bld) [#/Vol] 0.03 10*3/uL Normal <0.46 [facility] Comment on above: Order Comment: Speci men Type: BLOOD SPECIMENOrdering Facility: [facility] Address: [address] [place] [address] Performed By: #### 5 7021-8 ####[facility] LABCLIA [id number] [address] LABCLIA [id number] [place] [address] Eosinophils/100 WBC (Bld) 1.0 % Normal [facility] Comment on above: Order Comment: Speci men Type: BLOOD SPECIMENOrdering Facility: [facility] Address: [address] [place] [address] Performed By: #### 5 7021-8 ####[facility] LABCLIA [id number] [address] LABCLIA [id number] [place] [address] Erythrocyte distribution width (RBC) [Ratio] 24.8 % High 11.5-15.0 [facility] Comment on above: Order Comment: Speci men Type: BLOOD SPECIMENOrdering Facility: [facility] Address: [address] [address] Performed By: #### 5 7021-8 ####[facility] LABCLIA [id number] [address] LABCLIA [id number] [place] [address] Hematocrit (Bld) [Volume fraction] 21.1 % Low 39.0-51.0 [facility] Comment on above: Order Comment: Speci men Type: BLOOD SPECIMENOrdering Facility: [facility] Address: [address] [place] [address] Performed By: #### 5 7021-8 ####[facility] LABCLIA [id number] [address] LABCLIA [id number] [place] [address] Hemoglobin (Bld) [Mass/Vol] 6.5 g/dL Low 13.0-17.0 [facility] Comment on above: Order Comment: Speci men Type: BLOOD SPECIMENOrdering Facility: [facility] Address: [address] [place] [address] Performed By: #### 5 7021-8 ####[facility] LABCLIA [id number] [address] LABCLIA [id number] [place] [address] Lymphocytes (Bld) [#/Vol] 0.97 10*3/uL Low 1.00-4.00 [facility] Comment on above: Order Comment: Speci men Type: BLOOD SPECIMENOrdering Facility: [facility] Address: [address] [place] [address] Performed By: #### 5 7021-8 ####[facility] LABCLIA [id number] [address] LABCLIA [id number] [place] [address] Lymphocytes/100 WBC (Bld) 28.0 % Normal [facility] Comment on above: Order Comment: Speci men Type: BLOOD SPECIMENOrdering Facility: [facility] Address: [address] [place] [address] Performed By: #### 5 7021-8 ####[facility] LABCLIA [id number] [address] LABCLIA [id number] [place] [address] MCH (RBC) [Entitic mass] 32.0 pg Normal 26.0-34.0 [facility] Comment on above: Order Comment: Speci men Type: BLOOD SPECIMENOrdering Facility: [facility] Address: [address] [place] [address] Performed By: #### 5 7021-8 ####[facility] LABCLIA [id number] [address] LABCLIA [id number] [place] [address] MCHC (RBC) [Mass/Vol] 30.8 g/dL Normal 30.5-36.0 [facility] Comment on above: Order Comment: Speci men Type: BLOOD SPECIMENOrdering Facility: [facility] Address: [address] [place], [place] [address] Performed By: #### 5 7021-8 ####[facility] LABIA [id number] [address] LABCLIA [id number] [place] [address] MCV (RBC) [Entitic vol] 103.9 fL High 80.0-100.0 [facility] Comment on above: Order Comment: Speci men Type: BLOOD SPECIMENOrdering Facility: [facility] Address: [facility] [address] Performed By: #### 5 7021-8 ####[facility] LABCLIA [id number] [address] LABCLIA [id number] [place] [address] Metamyelocytes/100 WBC (Bld) 5.0 % Normal [facility] Comment on above: Order Comment: Speci men Type: BLOOD SPECIMENOrdering Facility: [facility] Address: [address] [address] Performed By: #### 5 7021-8 ####[facility] LABCLIA [id number] [address] LABCLIA [id number] [place] [address] Monocytes (Bld) [#/Vol] 0.48 10*3/uL Normal <0.87 [facility] Comment on above: Order Comment: Speci men Type: BLOOD SPECIMENOrdering Facility: [facility] Address: [address] Performed By: #### 5 7021-8 ####[facility] LABCLIA [id number] [address] LABCLIA [id number] [place] [address] Monocytes/100 WBC (Bld) 14.0 % Normal [facility] Comment on above: Order Comment: Speci men Type: BLOOD SPECIMENOrdering Facility: [facility] Address: [address] [place], [place] [address] Performed By: #### 5 7021-8 ####[facility] LABCLIA [id number] [address] LABCLIA [id number] [place] [address] MYELO% 9.0 % Normal [facility] Comment on above: Order Comment: Speci men Type: BLOOD SPECIMENOrdering Facility: [facility] Address: [address] [place] [address] Performed By: #### 5 7021-8 ####[facility] LABCLIA [id number] [address] LABCLIA [id number] [place] [address] Neutrophils (Bld) [#/Vol] 1.48 10*3/uL Normal 1.45-7.50 [facility] Comment on above: Order Comment: Speci men Type: BLOOD SPECIMENOrdering Facility: [facility] Address: [address] [place] [address] Performed By: #### 5 7021-8 ####[facility] LABCLIA [id number] [address] LABCLIA [id number] [place] [address] Neutrophils/100 WBC (Bld) 43.0 % Normal [facility] Comment on above: Order Comment: Speci men Type: BLOOD SPECIMENOrdering Facility: [facility] Address: [address] [place], [place] [address] Performed By: #### 5 7021-8 ####[facility] LABCLIA [id number] [address] LABCLIA [id number] [place] [address] Nucleated RBC (Bld) [#/Vol] 10*3/uL Normal <0.01 [facility] Comment on above: Order Comment: Speci men Type: BLOOD SPECIMENOrdering Facility: [facility] Address: [address] [place], [place] [address] Performed By: #### 5 7021-8 ####[facility] LABCLIA [id number] [address] LABCLIA [id number] [place] [address] Nucleated RBC/100 WBC (Bld) [Ratio] 0.0 /100 WBC Normal [facility] Comment on above: Order Comment: Speci men Type: BLOOD SPECIMENOrdering Facility: [facility] Address: [address] [place] [address] Performed By: #### 5 7021-8 ####[facility] LABCLIA [id number] [address] LABCLIA [id number] [place] [address] Ovalocytes LM Ql (Bld) Few Normal [facility] Comment on above: Order Comment: Speci men Type: BLOOD SPECIMENOrdering Facility: [facility] Address: [address] [place] [address] Performed By: #### 5 7021-8 ####[facility] LABCLIA [id number] [address] LABCLIA [id number] [place] [address] Platelet mean volume (Bld) [Entitic vol] Normal [facility] Comment on above: Order Comment: Speci men Type: BLOOD SPECIMENOrdering Facility: [facility] Address: [address] [place], [place] [address] Result Comment: Unab le to Report. Performed By: #### 5 7021-8 ####[facility] LABCLIA [id number] [address] LABCLIA [id number] [place] [address] Platelets (Bld) [#/Vol] 47 10*3/uL Low 150-400 [facility] Comment on above: Order Comment: Speci men Type: BLOOD SPECIMENOrdering Facility: [facility] Address: [address] [place] [address] Result Comment: Resu lts checked and verified.No clot detected.Platelet count confirmed by manual review of peripheral blood smear. Performed By: #### 5 7021-8 ####[facility] LABCLIA [id number] [address] LABCLIA [id number] [place] [address] Platelets Estimate (Bld) [#/Vol] Decreased Normal [facility] Comment on above: Order Comment: Speci men Type: BLOOD SPECIMENOrdering Facility: [facility] Address: [address] [place] [address] Performed By: #### 5 7021-8 ####[facility] LABCLIA [id number] [address] LABCLIA [id number] [place] [address] Polychromasia LM Ql (Bld) Slight Normal [facility] Comment on above: Order Comment: Speci men Type: BLOOD SPECIMENOrdering Facility: [facility] Address: [address] [place] [address] Performed By: #### 5 7021-8 ####[facility] LABCLIA [id number] [address] LABCLIA [id number] [place] [address] RBC (Bld) [#/Vol] 2.03 10*6/uL Low 4.20-6.00 [facility] Comment on above: Order Comment: Speci men Type: BLOOD SPECIMENOrdering Facility: [facility] Address: [address] [place], [place] [address] Performed By: #### 5 7021-8 ####[facility] LABCLIA [id number] [address] LABCLIA [id number] [place] [address] RED CELL MORPH Reviewed: see result s of individual morphologies Normal [facility] Comment on above: Order Comment: Speci men Type: BLOOD SPECIMENOrdering Facility: [facility] Address: [address] [place] [address] Performed By: #### 5 7021-8 ####[facility] LABCLIA [id number] [address] LABCLIA [id number] [place] [address] WBC (Bld) [#/Vol] 3.45 10*3/uL Low 3.70-11.00 [facility] Comment on above: Order Comment: Speci men Type: BLOOD SPECIMENOrdering Facility: [facility] Address: [address] [place] [address] Result Comment: Resu lts checked and verified.No clot detected.Reviewed Performed By: #### 5 7021-8 ####[facility] LABCLIA [id number] [address] LABCLIA [id number] [place] [address] WBC Left Shift Ql (Bld) Present Normal [facility] Comment on above: Order Comment: Speci men Type: BLOOD SPECIMENOrdering Facility: [facility] Address: [address] [place] [address] Performed By: #### 5 7021-8 ####[facility] LABCLIA [id number] [address] LABCLIA [id number] [place] [address] CNPNon 11-06-2022 CNPN Normal [facility] Comprehensive metabolic 2000 panelon 11-06-2022 Albumin [Mass/Vol] 3.7 g/dL Low 3.9-4.9 [facility] Comment on above: Order Comment: Speci men Type: BLOOD SPECIMENOrdering Facility: [facility] Address: [address] [place] [address] Performed By: #### 2 4323-8 ####[facility] LABCLIA [id number] [place] [address] ALP [Catalytic activity/Vol] 171 U/L High 38-113 [facility] Comment on above: Order Comment: Speci men Type: BLOOD SPECIMENOrdering Facility: [facility] Address: [address] [place] [address] Performed By: #### 2 4323-8 ####[facility] LABCLIA [id number] [place] [address] ALT [Catalytic activity/Vol] 56 U/L High 10-54 [facility] Comment on above: Order Comment: Speci men Type: BLOOD SPECIMENOrdering Facility: [facility] Address: [address] [place] [address] Performed By: #### 2 4323-8 ####[facility] LABCLIA [id number] [place] [address] Anion gap [Moles/Vol] 6 mmol/L Low 9-18 [facility] Comment on above: Order Comment: Speci men Type: BLOOD SPECIMENOrdering Facility: [facility] Address: [address] [place] [address] Performed By: #### 2 4323-8 ####[facility] LABCLIA [id number] [place] [address] AST [Catalytic activity/Vol] 29 U/L Normal 14-40 [facility] Comment on above: Order Comment: Speci men Type: BLOOD SPECIMENOrdering Facility: [facility] Address: [address] [place] [address] Performed By: #### 2 4323-8 ####[facility] LABCLIA [id number] [place] [address] Bilirubin [Mass/Vol] 0.8 mg/dL Normal 0.2-1.3 [facility] Comment on above: Order Comment: Speci men Type: BLOOD SPECIMENOrdering Facility: [facility] Address: [address] [place] [address] Performed By: #### 2 4323-8 ####[facility] LABCLIA [id number] [place] [address] Calcium [Mass/Vol] 9.0 mg/dL Normal 8.5-10.2 [facility] Comment on above: Order Comment: Speci men Type: BLOOD SPECIMENOrdering Facility: [facility] Address: [address] [place] [address] Performed By: #### 2 4323-8 ####[facility] LABCLIA [id number] [place] [address] Chloride [Moles/Vol] 104 mmol/L Normal 97-105 [facility] Comment on above: Order Comment: Speci men Type: BLOOD SPECIMENOrdering Facility: [facility] Address: [address] [place] [address] Performed By: #### 2 4323-8 ####[facility] LABCLIA [id number] [place] [address] CO2 [Moles/Vol] 30 mmol/L Normal 22-30 [facility] Comment on above: Order Comment: Speci men Type: BLOOD SPECIMENOrdering Facility: [facility] Address: [address] [place] [address] Performed By: #### 2 4323-8 ####[facility] LABCLIA [id number] [place] [address] Creatinine [Mass/Vol] 1.41 mg/dL High 0.73-1.22 [facility] Comment on above: Order Comment: Cristinaiman avendaño Type: BLOOD SPECIMENOrdering Facility: [facility] Address: [address] [place] [address] Performed By: #### 2 4323-8 ####[facility] LABCLIA [id number] [place] [address] ESTIMATED GLOMERULAR FILTRATION RATE 49 mL/min/1.73m??? Low >=60 [facility] Comment on above: Order Comment: Davi kateryna Type: BLOOD SPECIMENOrdering Facility: [facility] Address: [address] [place] [address] Result Comment: Faye mated Glomerular Filtration Rate (eGFR) is calculated using the 2020 CKD-EPI creatinine equation. This equation utilizes serum creatinine, sex, and age as parameters. The creatinine assay has traceable calibration to isotope dilution-mass spectrometry. Refer to KDIGO guidelines for clinical interpretation. In patients with unstable renal function, e.g. those with acute kidney injury, the eGFR may not accurately reflect actual GFR. Performed By: #### 2 4323-8 ####[facility] LABCLIA [id number] [place] [address] Glucose [Mass/Vol] 183 mg/dL High 74-99 [facility] Comment on above: Order Comment: Davi kateryna Type: BLOOD SPECIMENOrdering Facility: [facility] Address: [address] [place] [address] Result Comment: The [place] [employer] (ADA) provides guidance for cutoff values for fasting glucose and random glucose. The ADA defines fasting as no caloric intake for at least 8 hours. Fasting plasma glucose results between 100 to 125 mg/dL indicate increased risk for diabetes (prediabetes).Fasting plasma glucose results greater than or equal to 126 mg/dL meet the criteria for diagnosis of diabetes. In the absence of unequivocal hyperglycemia, results should be confirmed by repeat testing. In a patient with classic symptoms of hyperglycemia or hyperglycemic crisis, random plasma glucose results greater than or equal to 200 mg/dL meet the criteria for diagnosis of diabetes.Reference: Standards of Medical Care in Diabetes 2016, [employer] [place] [employer]. Diabetes Care. 2016.39(Suppl 1). Performed By: #### 2 4323-8 ####[facility] LABCLIA [id number] [place] [address] Potassium [Moles/Vol] 4.0 mmol/L Normal 3.7-5.1 [facility] Comment on above: Order Comment: Speci men Type: BLOOD SPECIMENOrdering Facility: [facility] Address: [address] [place] [address] Performed By: #### 2 4323-8 ####[facility] LABCLIA [id number] [place] [address] Protein [Mass/Vol] 7.0 g/dL Normal 6.3-8.0 [facility] Comment on above: Order Comment: Speci men Type: BLOOD SPECIMENOrdering Facility: [facility] Address: [address] [place] [address] Performed By: #### 2 4323-8 ####[facility] LABCLIA [id number] [place] [address] Sodium [Moles/Vol] 140 mmol/L Normal 136-144 [facility] Comment on above: Order Comment: Speci men Type: BLOOD SPECIMENOrdering Facility: [facility] Address: [address] [place] [address] Performed By: #### 2 4323-8 ####[facility] LABCLIA [id number] [place] [address] Urea nitrogen [Mass/Vol] 27 mg/dL High 9-24 [facility] Comment on above: Order Comment: Speci men Type: BLOOD SPECIMENOrdering Facility: [facility] Address: [address] [place] [address] Performed By: #### 2 4323-8 ####[facility] LABCLIA [id number] [place] [address] HEMOGLOBIN AND HEMATOCRITon 11-06-2022 Hematocrit (Bld) [Volume fraction] 20.3 % Critically low 42.0-54.0 [facility] Comment on above: Performed By: #### T NS, PRBC #### [facility] [address] [place] [address] Dr. Benito To Hemoglobin (Bld) [Mass/Vol] 6.4 g/dL Critically low 14.0-18.0 [facility] Comment on above: Performed By: #### T NS, PRBC #### [facility] [address] [place] [address] Dr. Benito To TYPE AND SCREENon 11-06-2022 TYPE AND SCREEN Negative Normal [facility] Comment on above: Performed By: #### H H #### [facility] [address] [place] [address] Dr. Benito To PRBC LEUKOREDUCEDon 11-01-19 ABO and Rh group Nom (Bld) Cross Match Result Compatible Unit Blood Type A Pos Unit Number [id number] Status Information Transfused Product ID Red Blood Cells Product Code [id number] Cross Match Result Compatible Unit Blood Type A Pos Unit Number [id number] Status Information Transfused Product ID Red Blood Cells Product Code [id number] Normal [facility] Comment on above: Performed By: #### T NS, PRBC #### [facility] [address] [place] [address] Dr. Benito To ABO and Rh group Nom (Bld) Cross Match Result Compatible Unit Blood Type A Pos Unit Number [id number] Status Information Transfused Product ID Red Blood Cells Product Code [id number] Cross Match Result Compatible Unit Blood Type A Pos Unit Number [id number] Status Information Transfused Product ID Red Blood Cells Product Code [id number] Normal [facility] Comment on above: Performed By: #### T NS, PRBC #### [facility] [address] [place] [address] Dr. Benito To CBC W Auto Differential pane l (Bld)on 10-30-2022 Anisocytosis Ql (Bld) Present Normal [facility] Comment on above: Order Comment: Speci men Type: BLOOD SPECIMENOrdering Facility: [facility] Address: [address] [place] [address] Performed By: #### 5 7021-8 ####[facility] LABCLIA [id number] [address] LABCLIA [id number] [place] [address] Basophils (Bld) [#/Vol] 0.00 10*3/uL Normal <0.11 [facility] Comment on above: Order Comment: Speci men Type: BLOOD SPECIMENOrdering Facility: [facility] Address: [address] Performed By: #### 5 7021-8 ####[facility] LABCLIA [id number] [address] LABCLIA [id number] [place] [address] Basophils/100 WBC (Bld) 0.0 % Normal [facility] Comment on above: Order Comment: Speci men Type: BLOOD SPECIMENOrdering Facility: [facility] Address: [address] Performed By: #### 5 7021-8 ####[facility] LABCLIA [id number] [address] LABCLIA [id number] [place] [address] Differential cell count method Nom (Bld) Manual Normal [facility] Comment on above: Order Comment: Speci men Type: BLOOD SPECIMENOrdering Facility: [facility] Address: [address] [place] [address] Performed By: #### 5 7021-8 ####[facility] LABCLIA [id number] [address] LABCLIA [id number] [place] [address] Eosinophils (Bld) [#/Vol] 0.00 10*3/uL Normal <0.46 [facility] Comment on above: Order Comment: Speci men Type: BLOOD SPECIMENOrdering Facility: [facility] Address: [address] [place] [address] Performed By: #### 5 7021-8 ####[facility] LABIA [id number] [address] LABCLIA [id number] [place] [address] Eosinophils/100 WBC (Bld) 0.0 % Normal [facility] Comment on above: Order Comment: Speci men Type: BLOOD SPECIMENOrdering Facility: [facility] Address: [address] [place] [address] Performed By: #### 5 7021-8 ####[facility] LABCLIA [id number] [address] LABCLIA [id number] [place] [address] Erythrocyte distribution width (RBC) [Ratio] 22.6 % High 11.5-15.0 [facility] Comment on above: Order Comment: Speci men Type: BLOOD SPECIMENOrdering Facility: [facility] Address: [address] [place] [address] Performed By: #### 5 7021-8 ####[facility] LABCLIA [id number] [address] LABCLIA [id number] [place] [address] Hematocrit (Bld) [Volume fraction] 26.0 % Low 39.0-51.0 [facility] Comment on above: Order Comment: Speci men Type: BLOOD SPECIMENOrdering Facility: [facility] Address: [address] [place] [address] Performed By: #### 5 7021-8 ####[facility] LABCLIA [id number] [address] LABCLIA [id number] [place] [address] Hemoglobin (Bld) [Mass/Vol] 8.1 g/dL Low 13.0-17.0 [facility] Comment on above: Order Comment: Speci men Type: BLOOD SPECIMENOrdering Facility: [facility] Address: [address] [place] [address] Performed By: #### 5 7021-8 ####[facility] LABCLIA [id number] [address] LABCLIA [id number] [place] [address] Lymphocytes (Bld) [#/Vol] 0.79 10*3/uL Low 1.00-4.00 [facility] Comment on above: Order Comment: Speci men Type: BLOOD SPECIMENOrdering Facility: [facility] Address: [address] [place] [address] Performed By: #### 5 7021-8 ####[facility] LABCLIA [id number] [address] LABCLIA [id number] [place] [address] Lymphocytes/100 WBC (Bld) 31.0 % Normal [facility] Comment on above: Order Comment: Speci men Type: BLOOD SPECIMENOrdering Facility: [facility] Address: [address] [place] [address] Performed By: #### 5 7021-8 ####[facility] LABCLIA [id number] [address] LABCLIA [id number] [place] [address] MCH (RBC) [Entitic mass] 31.5 pg Normal 26.0-34.0 [facility] Comment on above: Order Comment: Speci men Type: BLOOD SPECIMENOrdering Facility: [facility] Address: [address] [place] [address] Performed By: #### 5 7021-8 ####[facility] LABCLIA [id number] [address] LABCLIA [id number] [place] [address] MCHC (RBC) [Mass/Vol] 31.2 g/dL Normal 30.5-36.0 [facility] Comment on above: Order Comment: Speci men Type: BLOOD SPECIMENOrdering Facility: [facility] Address: [address] [place] [address] Performed By: #### 5 7021-8 ####[facility] LABCLIA [id number] [address] LABCLIA [id number] [place] [address] MCV (RBC) [Entitic vol] 101.2 fL High 80.0-100.0 [facility] Comment on above: Order Comment: Speci men Type: BLOOD SPECIMENOrdering Facility: [facility] Address: [address] [place] [address] Performed By: #### 5 7021-8 ####[facility] LABCLIA [id number] [address] LABIA [id number] [place] [address] Metamyelocytes/100 WBC (Bld) 1.0 % Normal [facility] Comment on above: Order Comment: Speci men Type: BLOOD SPECIMENOrdering Facility: [facility] Address: [address] [place] [address] Performed By: #### 5 7021-8 ####[facility] LABCLIA [id number] [address] LABCLIA [id number] [place] [address] Monocytes (Bld) [#/Vol] 0.28 10*3/uL Normal <0.87 [facility] Comment on above: Order Comment: Speci men Type: BLOOD SPECIMENOrdering Facility: [facility] Address: [address] [place] [address] Performed By: #### 5 7021-8 ####[facility] LABCLIA [id number] [address] LABCLIA [id number] [place] [address] Monocytes/100 WBC (Bld) 11.0 % Normal [facility] Comment on above: Order Comment: Speci men Type: BLOOD SPECIMENOrdering Facility: [facility] Address: [address] [place] [address] Performed By: #### 5 7021-8 ####[facility] LABCLIA [id number] [address] LABCLIA [id number] [place] [address] MYELO% 10.0 % Normal [facility] Comment on above: Order Comment: Speci men Type: BLOOD SPECIMENOrdering Facility: [facility] Address: [address] [place] [address] Performed By: #### 5 7021-8 ####[facility] LABCLIA [id number] [address] LABCLIA [id number] [place] [address] Neutrophils (Bld) [#/Vol] 1.22 10*3/uL Low 1.45-7.50 [facility] Comment on above: Order Comment: Speci men Type: BLOOD SPECIMENOrdering Facility: [facility] Address: [address] [place] [address] Performed By: #### 5 7021-8 ####[facility] LABCLIA [id number] [address] LABCLIA [id number] [place] [address] Neutrophils/100 WBC (Bld) 48.0 % Normal [facility] Comment on above: Order Comment: Speci men Type: BLOOD SPECIMENOrdering Facility: [facility] Address: [address] [place] [address] Performed By: #### 5 7021-8 ####[facility] LABCLIA [id number] [address] LABCLIA [id number] [place] [address] Nucleated RBC (Bld) [#/Vol] 0.08 10*3/uL High <0.01 [facility] Comment on above: Order Comment: Speci men Type: BLOOD SPECIMENOrdering Facility: [facility] Address: [address] [place] [address] Performed By: #### 5 7021-8 ####[facility] LABCLIA [id number] [address] LABCLIA [id number] [place] [address] Nucleated RBC/100 WBC (Bld) [Ratio] 3.0 /100 WBC Normal [facility] Comment on above: Order Comment: Speci men Type: BLOOD SPECIMENOrdering Facility: [facility] Address: [address] [place] [address] Performed By: #### 5 7021-8 ####[facility] LABCLIA [id number] LABCLIA [id number] [place] [address] Ovalocytes LM Ql (Bld) Few Normal [facility] Comment on above: Order Comment: Speci men Type: BLOOD SPECIMENOrdering Facility: [facility] Address: [address] [place] [address] Performed By: #### 5 7021-8 ####[facility] LABCLIA [id number] [address] LABCLIA [id number] [place] [address] Platelet mean volume (Bld) [Entitic vol] Normal [facility] Comment on above: Order Comment: Speci men Type: BLOOD SPECIMENOrdering Facility: [facility] Address: [address] [place] [address] Result Comment: Unab le to report Performed By: #### 5 7021-8 ####[facility] LABCLIA [id number] [address] LABCLIA [id number] [place] [address] Platelets (Bld) [#/Vol] 60 10*3/uL Low 150-400 [facility] Comment on above: Order Comment: Speci men Type: BLOOD SPECIMENOrdering Facility: [facility] Address: [address] [place] [address] Result Comment: No c lot detected. Checked and Verified Performed By: #### 5 7021-8 ####[facility] LABCLIA [id number] [address] LABCLIA [id number] [place] [address] Platelets Estimate (Bld) [#/Vol] Decreased Normal [facility] Comment on above: Order Comment: Speci men Type: BLOOD SPECIMENOrdering Facility: [facility] Address: [address] [place] [address] Performed By: #### 5 7021-8 ####[facility] LABCLIA [id number] [address] LABCLIA [id number] [place] [address] RBC (Bld) [#/Vol] 2.57 10*6/uL Low 4.20-6.00 [facility] Comment on above: Order Comment: Speci men Type: BLOOD SPECIMENOrdering Facility: [facility] Address: [address] [place], [place] [address] Performed By: #### 5 7021-8 ####[facility] LABCLIA [id number] [address] LABCLIA [id number] [place] [address] RBC FRAGMENTS Few Abnormal None Seen [facility] Comment on above: Order Comment: Speci men Type: BLOOD SPECIMENOrdering Facility: [facility] Address: [address] [place] [address] Performed By: #### 5 7021-8 ####[facility] LABCLIA [id number] [address] LABCLIA [id number] [place] [address] RED CELL MORPH Reviewed: see result s of individual morphologies Normal [facility] Comment on above: Order Comment: Speci men Type: BLOOD SPECIMENOrdering Facility: [facility] Address: [address] [place] [address] Performed By: #### 5 7021-8 ####[facility] LABCLIA [id number] [address] LABCLIA [id number] [place] [address] WBC (Bld) [#/Vol] 2.55 10*3/uL Low 3.70-11.00 [facility] Comment on above: Order Comment: Speci men Type: BLOOD SPECIMENOrdering Facility: [facility] Address: [address] [place] [address] Result Comment: Resu lts checked and verified.No clot detected. Performed By: #### 5 7021-8 ####[facility] LABCLIA [id number] [address] LABCLIA [id number] [place] [address] WBC Left Shift Ql (Bld) Present Normal [facility] Comment on above: Order Comment: Speci men Type: BLOOD SPECIMENOrdering Facility: [facility] Address: [address] [place] [address] Performed By: #### 5 7021-8 ####[facility] LABCLIA [id number] [address] LABCLIA [id number] [place] [address] CNOVSPon 10-30-2022 CNOVSP Normal [facility] Comprehensive metabolic 2000 panelon 10-30-2022 Albumin [Mass/Vol] 3.6 g/dL Low 3.9-4.9 [facility] Comment on above: Order Comment: Speci men Type: BLOOD SPECIMENOrdering Facility: [facility] Address: [address] [place] [address] Performed By: #### 2 4323-8 ####[facility] LABIA [id number] [place] [address] ALP [Catalytic activity/Vol] 183 U/L High 38-113 [facility] Comment on above: Order Comment: Speci men Type: BLOOD SPECIMENOrdering Facility: [facility] Address: [address] [address] Performed By: #### 2 4323-8 ####[facility] LABCLIA [id number] [place] [address] ALT [Catalytic activity/Vol] 74 U/L High 10-54 [facility] Comment on above: Order Comment: Speci men Type: BLOOD SPECIMENOrdering Facility: [facility] Address: [address] [address] Performed By: #### 2 4323-8 ####[facility] LABCLIA [id number] [place] [address] Anion gap [Moles/Vol] 11 mmol/L Normal 9-18 [facility] Comment on above: Order Comment: Speci men Type: BLOOD SPECIMENOrdering Facility: [facility] Address: [address] [place] [address] Performed By: #### 2 4323-8 ####[facility] LABCLIA [id number] [place] [address] AST [Catalytic activity/Vol] 39 U/L Normal 14-40 [facility] Comment on above: Order Comment: Speci men Type: BLOOD SPECIMENOrdering Facility: [facility] Address: [address] [address] Performed By: #### 2 4323-8 ####[facility] LABCLIA [id number] [place] [address] Bilirubin [Mass/Vol] 1.0 mg/dL Normal 0.2-1.3 [facility] Comment on above: Order Comment: Speci men Type: BLOOD SPECIMENOrdering Facility: [facility] Address: [address] [address] Performed By: #### 2 4323-8 ####[facility] LABCLIA [id number] [place] [address] Calcium [Mass/Vol] 9.1 mg/dL Normal 8.5-10.2 [facility] Comment on above: Order Comment: Speci men Type: BLOOD SPECIMENOrdering Facility: [facility] Address: [address] [place] [address] Performed By: #### 2 4323-8 ####[facility] LABCLIA [id number] [place] [address] Chloride [Moles/Vol] 100 mmol/L Normal 97-105 [facility] Comment on above: Order Comment: Speci men Type: BLOOD SPECIMENOrdering Facility: [facility] Address: [address] [address] Performed By: #### 2 4323-8 ####[facility] LABCLIA [id number] [place] [address] CO2 [Moles/Vol] 31 mmol/L High 22-30 [facility] Comment on above: Order Comment: Speci men Type: BLOOD SPECIMENOrdering Facility: [facility] Address: [address] [place] [address] Performed By: #### 2 4323-8 ####[facility] LABCLIA [id number] [place] [address] Creatinine [Mass/Vol] 1.34 mg/dL High 0.73-1.22 [facility] Comment on above: Order Comment: Speci men Type: BLOOD SPECIMENOrdering Facility: [facility] Address: [address] [place] [address] Performed By: #### 2 4323-8 ####[facility] LABCLIA [id number] [place] [address] ESTIMATED GLOMERULAR FILTRATION RATE 53 mL/min/1.73m??? Low >=60 [facility] Comment on above: Order Comment: Speci men Type: BLOOD SPECIMENOrdering Facility: [facility] Address: [address] [place] [address] Result Comment: Faye mated Glomerular Filtration Rate (eGFR) is calculated using the 2020 CKD-EPI creatinine equation. This equation utilizes serum creatinine, sex, and age as parameters. The creatinine assay has traceable calibration to isotope dilution-mass spectrometry. Refer to KDIGO guidelines for clinical interpretation. In patients with unstable renal function, e.g. those with acute kidney injury, the eGFR may not accurately reflect actual GFR. Performed By: #### 2 4323-8 ####[facility] LABCLIA [id number] [place] [address] Glucose [Mass/Vol] 229 mg/dL High 74-99 [facility] Comment on above: Order Comment: Speci men Type: BLOOD SPECIMENOrdering Facility: [facility] Address: [address] [place] [phone] Result Comment: The [place] [employer] (ADA) provides guidance for cutoff values for fasting glucose and random glucose. The ADA defines fasting as no caloric intake for at least 8 hours. Fasting plasma glucose results between 100 to 125 mg/dL indicate increased risk for diabetes (prediabetes).Fasting plasma glucose results greater than or equal to 126 mg/dL meet the criteria for diagnosis of diabetes. In the absence of unequivocal hyperglycemia, results should be confirmed by repeat testing. In a patient with classic symptoms of hyperglycemia or hyperglycemic crisis, random plasma glucose results greater than or equal to 200 mg/dL meet the criteria for diagnosis of diabetes.Reference: Standards of Medical Care in Diabetes 2016, [employer] [place] [employer]. Diabetes Care. 2016.39(Suppl 1). Performed By: #### 2 4323-8 ####[facility] LABCLIA [id number] [place] [address] Potassium [Moles/Vol] 3.9 mmol/L Normal 3.7-5.1 [facility] Comment on above: Order Comment: Speci men Type: BLOOD SPECIMENOrdering Facility: [facility] Address: [address] [place] [address] Performed By: #### 2 4323-8 ####[facility] LABCLIA [id number] [place] [address] Protein [Mass/Vol] 7.2 g/dL Normal 6.3-8.0 [facility] Comment on above: Order Comment: Speci men Type: BLOOD SPECIMENOrdering Facility: [facility] Address: [address] [address] Performed By: #### 2 4323-8 ####[facility] LABCLIA [id number] [place] [address] Sodium [Moles/Vol] 142 mmol/L Normal 136-144 [facility] Comment on above: Order Comment: Speci men Type: BLOOD SPECIMENOrdering Facility: [facility] Address: [address] [address] Performed By: #### 2 4323-8 ####[facility] LABCLIA [id number] [place] [address] Urea nitrogen [Mass/Vol] 24 mg/dL Normal 9-24 [facility] Comment on above: Order Comment: Speci men Type: BLOOD SPECIMENOrdering Facility: [facility] Address: [address] [address] Performed By: #### 2 4323-8 ####[facility] LABCLIA [id number] [place] [address] HEMOGRAM AND PLATELon 2022 Hematocrit (Bld) [Volume fraction] 21.7 % Critically low 42.0-54.0 [facility] Comment on above: Performed By: #### T NS, PRBC #### [facility] [address] [place] [address] Dr. Benito To Hemoglobin (Bld) [Mass/Vol] 6.9 g/dL Critically low 14.0-18.0 [facility] Comment on above: Performed By: #### T NS, PRBC #### [facility] [address] [place] [address] Dr. Benito To MCH (RBC) [Entitic mass] 31.7 pg Normal 25.9-34.0 [facility] Comment on above: Performed By: #### T NS, PRBC #### [facility] [address] [place] [address] Dr. Benito To MCHC (RBC) [Mass/Vol] 31.8 g/dL Normal 29.9-35.2 [facility] Comment on above: Performed By: #### T NS, PRBC #### [facility] [address] [address] [address] Benito To MCV (RBC) [Entitic vol] 99.5 fL Critically high 80.0-94.0 [facility] Comment on above: Performed By: #### T NS, PRBC #### [facility] [address] [address] [address] Benito To PLT 54 103/ul Critically low 150-450 [facility] Comment on above: Performed By: #### T NS, PRBC #### [facility] [address] [address] [address] Benito To RBC 2.18 106/ul Critically low 4.70-6.10 [facility] Comment on above: Performed By: #### T NS, PRBC #### [facility] [address] [place] [address] Dr. Benito To WBC 4.3 103/ul Normal 4.0-11.0 [facility] Comment on above: Performed By: #### T NS, PRBC #### [facility] [address] [place] [address] Dr. Benito To TYPE AND SCREENon 10-25-2022 TYPE AND SCREEN Negative Normal [facility] Comment on above: Performed By: #### T NS, PRBC #### [facility] [address] [place] [address] Dr. Benito To CNPNon 10-24-2022 CNPN Normal [facility] CBC W Auto Differential pane l (Bld)on 10-23-2022 Anisocytosis Ql (Bld) Present Normal [facility] Comment on above: Order Comment: Speci men Type: BLOOD SPECIMENOrdering Facility: [facility] Address: [address] [place] [phone] Performed By: #### 5 7021-8 ####[facility] LABCLIA [id number] [address] LABCLIA [id number] [place] [address] Basophils (Bld) [#/Vol] 0.03 10*3/uL Normal <0.11 [facility] Comment on above: Order Comment: Speci men Type: BLOOD SPECIMENOrdering Facility: [facility] Address: [address] [place] [address] Performed By: #### 5 7021-8 ####[facility] LABCLIA [id number] [address] LABCLIA [id number] [place] [address] Basophils/100 WBC (Bld) 1.0 % Normal [facility] Comment on above: Order Comment: Speci men Type: BLOOD SPECIMENOrdering Facility: [facility] Address: [address] [place] [address] Performed By: #### 5 7021-8 ####[facility] LABCLIA [id number] [address] LABCLIA [id number] [place] [address] BLAST% 1.0 % High <=0.0 [facility] Comment on above: Order Comment: Speci men Type: BLOOD SPECIMENOrdering Facility: [facility] Address: [address] [place], [place] [address] Performed By: #### 5 7021-8 ####[facility] LABCLIA [id number] [address] LABCLIA [id number] [place] [address] Differential cell count method Nom (Bld) Manual Normal [facility] Comment on above: Order Comment: Speci men Type: BLOOD SPECIMENOrdering Facility: [facility] Address: [address] Performed By: #### 5 7021-8 ####[facility] LABCLIA [id number] [address] LABCLIA [id number] [place] [address] Eosinophils (Bld) [#/Vol] 0.00 10*3/uL Normal <0.46 [facility] Comment on above: Order Comment: Speci men Type: BLOOD SPECIMENOrdering Facility: [facility] Address: [address] Performed By: #### 5 7021-8 ####[facility] LABCLIA [id number] [address] LABCLIA [id number] [place] [address] Eosinophils/100 WBC (Bld) 0.0 % Normal [facility] Comment on above: Order Comment: Speci men Type: BLOOD SPECIMENOrdering Facility: [facility] Address: [address] [place], [place] [address] Performed By: #### 5 7021-8 ####[facility] LABCLIA [id number] [address] LABCLIA [id number] [place] [address] Erythrocyte distribution width (RBC) [Ratio] 23.7 % High 11.5-15.0 [facility] Comment on above: Order Comment: Speci men Type: BLOOD SPECIMENOrdering Facility: [facility] Address: [address] Performed By: #### 5 7021-8 ####[facility] LABCLIA [id number] [address] LABCLIA [id number] [place] [address] Hematocrit (Bld) [Volume fraction] 23.4 % Low 39.0-51.0 [facility] Comment on above: Order Comment: Speci men Type: BLOOD SPECIMENOrdering Facility: [facility] Address: [address] [place] [address] Performed By: #### 5 7021-8 ####[facility] LABIA [id number] [address] LABCLIA [id number] [place] [address] Hemoglobin (Bld) [Mass/Vol] 7.4 g/dL Low 13.0-17.0 [facility] Comment on above: Order Comment: Speci men Type: BLOOD SPECIMENOrdering Facility: [facility] Address: [address] [place] [address] Performed By: #### 5 7021-8 ####[facility] LABCLIA [id number] [address] LABCLIA [id number] [place] [address] Lymphocytes (Bld) [#/Vol] 1.11 10*3/uL Normal 1.00-4.00 [facility] Comment on above: Order Comment: Speci men Type: BLOOD SPECIMENOrdering Facility: [facility] Address: [address] [place] [address] Performed By: #### 5 7021-8 ####[facility] LABIA [id number] [address] LABIA [id number] [place] [address] Lymphocytes/100 WBC (Bld) 32.0 % Normal [facility] Comment on above: Order Comment: Speci men Type: BLOOD SPECIMENOrdering Facility: [facility] Address: [address] [place] [address] Performed By: #### 5 7021-8 ####[facility] LABCLIA [id number] [address] LABCLIA [id number] [place] [address] MCH (RBC) [Entitic mass] 31.5 pg Normal 26.0-34.0 [facility] Comment on above: Order Comment: Speci men Type: BLOOD SPECIMENOrdering Facility: [facility] Address: [address] Performed By: #### 5 7021-8 ####[facility] LABCLIA [id number] [address] LABCLIA [id number] [place] [address] MCHC (RBC) [Mass/Vol] 31.6 g/dL Normal 30.5-36.0 [facility] Comment on above: Order Comment: Speci men Type: BLOOD SPECIMENOrdering Facility: [facility] Address: [address] Performed By: #### 5 7021-8 ####[facility] LABCLIA [id number] [address] LABCLIA [id number] [place] [address] MCV (RBC) [Entitic vol] 99.6 fL Normal 80.0-100.0 [facility] Comment on above: Order Comment: Speci men Type: BLOOD SPECIMENOrdering Facility: [facility] Address: [address] Performed By: #### 5 7021-8 ####[facility] LABCLIA [id number] [address] LABCLIA [id number] [place] [address] Monocytes (Bld) [#/Vol] 0.59 10*3/uL Normal <0.87 [facility] Comment on above: Order Comment: Speci men Type: BLOOD SPECIMENOrdering Facility: [facility] Address: [address] [place] [address] Performed By: #### 5 7021-8 ####[facility] LABCLIA [id number] [address] LABCLIA [id number] [place] [address] Monocytes/100 WBC (Bld) 17.0 % Normal [facility] Comment on above: Order Comment: Speci men Type: BLOOD SPECIMENOrdering Facility: [facility] Address: [address] [place] [address] Performed By: #### 5 7021-8 ####[facility] LABCLIA [id number] [address] LABCLIA [id number] [place] [address] MYELO% 9.0 % Normal [facility] Comment on above: Order Comment: Speci men Type: BLOOD SPECIMENOrdering Facility: [facility] Address: [address] [place] [address] Performed By: #### 5 7021-8 ####[facility] LABCLIA [id number] [address] LABIA [id number] [place] [address] Neutrophils (Bld) [#/Vol] 1.39 10*3/uL Low 1.45-7.50 [facility] Comment on above: Order Comment: Speci men Type: BLOOD SPECIMENOrdering Facility: [facility] Address: [address] [place] [address] Performed By: #### 5 7021-8 ####[facility] LABCLIA [id number] [address] LABCLIA [id number] [place] [address] Neutrophils/100 WBC (Bld) 40.0 % Normal [facility] Comment on above: Order Comment: Speci men Type: BLOOD SPECIMENOrdering Facility: [facility] Address: [address] Performed By: #### 5 7021-8 ####[facility] LABCLIA [id number] [address] LABCLIA [id number] [place] [address] Nucleated RBC (Bld) [#/Vol] 0.07 10*3/uL High <0.01 [facility] Comment on above: Order Comment: Speci men Type: BLOOD SPECIMENOrdering Facility: [facility] Address: [address] [place], [place] [address] Performed By: #### 5 7021-8 ####[facility] LABCLIA [id number] [address] LABCLIA [id number] [place] [address] Nucleated RBC/100 WBC (Bld) [Ratio] 2.0 /100 WBC Normal [facility] Comment on above: Order Comment: Speci men Type: BLOOD SPECIMENOrdering Facility: [facility] Address: [address] [place], [place] [address] Performed By: #### 5 7021-8 ####[facility] LABCLIA [id number] [address] LABCLIA [id number] [place] [address] Ovalocytes LM Ql (Bld) Few Normal [facility] Comment on above: Order Comment: Speci men Type: BLOOD SPECIMENOrdering Facility: [facility] Address: [address] [place] [address] Performed By: #### 5 7021-8 ####[facility] LABCLIA [id number] [address] LABCLIA [id number] [place] [address] Platelet mean volume (Bld) [Entitic vol] Normal [facility] Comment on above: Order Comment: Speci men Type: BLOOD SPECIMENOrdering Facility: [facility] Address: [address] [place] [address] Result Comment: Unab le to report Performed By: #### 5 7021-8 ####[facility] LABCLIA [id number] [address] LABCLIA [id number] [place] [address] Platelets (Bld) [#/Vol] 65 10*3/uL Low 150-400 [facility] Comment on above: Order Comment: Speci men Type: BLOOD SPECIMENOrdering Facility: [facility] Address: [address] [place] [address] Performed By: #### 5 7021-8 ####[facility] LABCLIA [id number] [address] LABCLIA [id number] [place] [address] Platelets Estimate (Bld) [#/Vol] Decreased Normal [facility] Comment on above: Order Comment: Speci men Type: BLOOD SPECIMENOrdering Facility: [facility] Address: [address] [place] [address] Performed By: #### 5 7021-8 ####[facility] LABCLIA [id number] [address] LABCLIA [id number] [place] [address] Polychromasia LM Ql (Bld) Slight Normal [facility] Comment on above: Order Comment: Speci men Type: BLOOD SPECIMENOrdering Facility: [facility] Address: [address] [place] [address] Performed By: #### 5 7021-8 ####[facility] LABCLIA [id number] [address] LABCLIA [id number] [place] [address] RBC (Bld) [#/Vol] 2.35 10*6/uL Low 4.20-6.00 [facility] Comment on above: Order Comment: Speci men Type: BLOOD SPECIMENOrdering Facility: [facility] Address: [address] [place] [address] Performed By: #### 5 7021-8 ####[facility] LABCLIA [id number] [address] LABCLIA [id number] [place] [address] RED CELL MORPH Reviewed: see result s of individual morphologies Normal [facility] Comment on above: Order Comment: Speci men Type: BLOOD SPECIMENOrdering Facility: [facility] Address: [address] [place] [address] Performed By: #### 5 7021-8 ####[facility] LABCLIA [id number] [address] LABCLIA [id number] [place] [address] WBC (Bld) [#/Vol] 3.48 10*3/uL Low 3.70-11.00 [facility] Comment on above: Order Comment: Speci men Type: BLOOD SPECIMENOrdering Facility: [facility] Address: [address] [place] [address] Result Comment: Resu lts checked and verified.No clot detected. Performed By: #### 5 7021-8 ####[facility] LABCLIA [id number] [address] LABCLIA [id number] [place] [address] WBC Left Shift Ql (Bld) Present Normal [facility] Comment on above: Order Comment: Speci men Type: BLOOD SPECIMENOrdering Facility: [facility] Address: [address] [place] [address] Performed By: #### 5 7021-8 ####[facility] LABCLIA [id number] [address] LABCLIA [id number] [place] [address] Comprehensive metabolic 2000 panelon 10-23-2022 Albumin [Mass/Vol] 3.8 g/dL Low 3.9-4.9 [facility] Comment on above: Order Comment: Speci men Type: BLOOD SPECIMENOrdering Facility: [facility] Address: [address] [place] [address] Performed By: #### 2 4323-8 ####[facility] LABCLIA [id number] [place] [address] ALP [Catalytic activity/Vol] 166 U/L High 38-113 [facility] Comment on above: Order Comment: Speci men Type: BLOOD SPECIMENOrdering Facility: [facility] Address: [address] [place] [address] Performed By: #### 2 4323-8 ####[facility] LABCLIA [id number] [place] [address] ALT [Catalytic activity/Vol] 63 U/L High 10-54 [facility] Comment on above: Order Comment: Speci men Type: BLOOD SPECIMENOrdering Facility: [facility] Address: [address] [place] [address] Performed By: #### 2 4323-8 ####[facility] LABCLIA [id number] [place] [address] Anion gap [Moles/Vol] 12 mmol/L Normal 9-18 [facility] Comment on above: Order Comment: Speci men Type: BLOOD SPECIMENOrdering Facility: [facility] Address: [address] [place] [address] Performed By: #### 2 4323-8 ####[facility] LABCLIA [id number] [place] [address] AST [Catalytic activity/Vol] 36 U/L Normal 14-40 [facility] Comment on above: Order Comment: Speci men Type: BLOOD SPECIMENOrdering Facility: [facility] Address: [address] [place] [address] Performed By: #### 2 4323-8 ####[facility] LABCLIA [id number] [place] [address] Bilirubin [Mass/Vol] 0.9 mg/dL Normal 0.2-1.3 [facility] Comment on above: Order Comment: Speci men Type: BLOOD SPECIMENOrdering Facility: [facility] Address: [address] [place] [address] Performed By: #### 2 4323-8 ####[facility] LABCLIA [id number] [place] [address] Calcium [Mass/Vol] 9.2 mg/dL Normal 8.5-10.2 [facility] Comment on above: Order Comment: Speci men Type: BLOOD SPECIMENOrdering Facility: [facility] Address: [address] [place] [address] Performed By: #### 2 4323-8 ####[facility] LABCLIA [id number] [place] [address] Chloride [Moles/Vol] 101 mmol/L Normal 97-105 [facility] Comment on above: Order Comment: Speci men Type: BLOOD SPECIMENOrdering Facility: [facility] Address: [address] [place] [address] Performed By: #### 2 4323-8 ####[facility] LABCLIA [id number] [place] [address] CO2 [Moles/Vol] 29 mmol/L Normal 22-30 [facility] Comment on above: Order Comment: Speci men Type: BLOOD SPECIMENOrdering Facility: [facility] Address: [address] [place] [address] Performed By: #### 2 4323-8 ####[facility] LABCLIA [id number] [place] [address] Creatinine [Mass/Vol] 1.47 mg/dL High 0.73-1.22 [facility] Comment on above: Order Comment: Speci men Type: BLOOD SPECIMENOrdering Facility: [facility] Address: [address] [place] [address] Performed By: #### 2 4323-8 ####[facility] LABCLIA [id number] [place] [address] ESTIMATED GLOMERULAR FILTRATION RATE 47 mL/min/1.73m??? Low >=60 [facility] Comment on above: Order Comment: Speci men Type: BLOOD SPECIMENOrdering Facility: [facility] Address: [address] [place] [address] Result Comment: Faye mated Glomerular Filtration Rate (eGFR) is calculated using the 2020 CKD-EPI creatinine equation. This equation utilizes serum creatinine, sex, and age as parameters. The creatinine assay has traceable calibration to isotope dilution-mass spectrometry. Refer to KDIGO guidelines for clinical interpretation. In patients with unstable renal function, e.g. those with acute kidney injury, the eGFR may not accurately reflect actual GFR. Performed By: #### 2 4323-8 ####[facility] LABCLIA [id number] [place] [address] Glucose [Mass/Vol] 192 mg/dL High 74-99 [facility] Comment on above: Order Comment: Speci men Type: BLOOD SPECIMENOrdering Facility: [facility] Address: [address] [place] [address] Result Comment: The [place] [employer] (ADA) provides guidance for cutoff values for fasting glucose and random glucose. The ADA defines fasting as no caloric intake for at least 8 hours. Fasting plasma glucose results between 100 to 125 mg/dL indicate increased risk for diabetes (prediabetes).Fasting plasma glucose results greater than or equal to 126 mg/dL meet the criteria for diagnosis of diabetes. In the absence of unequivocal hyperglycemia, results should be confirmed by repeat testing. In a patient with classic symptoms of hyperglycemia or hyperglycemic crisis, random plasma glucose results greater than or equal to 200 mg/dL meet the criteria for diagnosis of diabetes.Reference: Standards of Medical Care in Diabetes 2016, [employer] [place] [employer]. Diabetes Care. 2016.39(Suppl 1). Performed By: #### 2 4323-8 ####[facility] LABCLIA [id number] [place] [address] Potassium [Moles/Vol] 4.0 mmol/L Normal 3.7-5.1 [facility] Comment on above: Order Comment: Speci men Type: BLOOD SPECIMENOrdering Facility: [facility] Address: [address] [place] [address] Performed By: #### 2 4323-8 ####[facility] LABCLIA [id number] [place] [address] Protein [Mass/Vol] 7.1 g/dL Normal 6.3-8.0 [facility] Comment on above: Order Comment: Speci men Type: BLOOD SPECIMENOrdering Facility: [facility] Address: [address] [place] [address] Performed By: #### 2 4323-8 ####[facility] LABCLIA [id number] [place] [address] Sodium [Moles/Vol] 142 mmol/L Normal 136-144 [facility] Comment on above: Order Comment: Speci men Type: BLOOD SPECIMENOrdering Facility: [facility] Address: [address] [place] [address] Performed By: #### 2 4323-8 ####[facility] LABCLIA [id number] [place] [address] Urea nitrogen [Mass/Vol] 27 mg/dL High 9-24 [facility] Comment on above: Order Comment: Speci men Type: BLOOD SPECIMENOrdering Facility: [facility] Address: [address] [place] [address] Performed By: #### 2 4323-8 ####[facility] LABCLIA [id number] [place] [address] CNPNon 10-17-2022 CNPN Normal [facility] CBC W Auto Differential pane l (Bld)on 10-16-2022 Anisocytosis Ql (Bld) Present Normal [facility] Comment on above: Order Comment: Speci men Type: BLOOD SPECIMENOrdering Facility: [facility] Address: [address] [place] [address] Performed By: #### 5 7021-8 ####[facility] LABCLIA [id number] [address] LABCLIA [id number] [place] [address] Basophils (Bld) [#/Vol] 0.03 10*3/uL Normal <0.11 [facility] Comment on above: Order Comment: Speci men Type: BLOOD SPECIMENOrdering Facility: [facility] Address: [address] [place] [address] Performed By: #### 5 7021-8 ####[facility] LABCLIA [id number] [address] [facility] LABCLIA [id number] [place] [address] Basophils/100 WBC (Bld) 1.0 % Normal [facility] Comment on above: Order Comment: Speci men Type: BLOOD SPECIMENOrdering Facility: [facility] Address: [address] [place] [address] Performed By: #### 5 7021-8 ####[facility] LABCLIA [id number] [address] LABCLIA [id number] [place] [address] Differential cell count method Nom (Bld) Manual Normal [facility] Comment on above: Order Comment: Speci men Type: BLOOD SPECIMENOrdering Facility: [facility] Address: [address] [place] [address] Performed By: #### 5 7021-8 ####[facility] LABCLIA [id number] [address] LABCLIA [id number] [place] [address] Eosinophils (Bld) [#/Vol] 0.03 10*3/uL Normal <0.46 [facility] Comment on above: Order Comment: Speci men Type: BLOOD SPECIMENOrdering Facility: [facility] Address: [address] [place], [place] [address] Performed By: #### 5 7021-8 ####[facility] LABCLIA [id number] [address] LABCLIA [id number] [place] [address] Eosinophils/100 WBC (Bld) 1.0 % Normal [facility] Comment on above: Order Comment: Speci men Type: BLOOD SPECIMENOrdering Facility: [facility] Address: [address] [place] [address] Performed By: #### 5 7021-8 ####[facility] LABCLIA [id number] [address] LABCLIA [id number] [place] [address] Erythrocyte distribution width (RBC) [Ratio] 23.0 % High 11.5-15.0 [facility] Comment on above: Order Comment: Speci men Type: BLOOD SPECIMENOrdering Facility: [facility] Address: [address] [place] [address] Performed By: #### 5 7021-8 ####[facility] LABCLIA [id number] [address] LABCLIA [id number] [place] [address] Giant platelets LM Ql (Bld) Occasional Normal [facility] Comment on above: Order Comment: Speci men Type: BLOOD SPECIMENOrdering Facility: [facility] Address: [address] [place] [address] Performed By: #### 5 7021-8 ####[facility] LABCLIA [id number] [address] LABCLIA [id number] [place] [address] Hematocrit (Bld) [Volume fraction] 20.8 % Low 39.0-51.0 [facility] Comment on above: Order Comment: Speci men Type: BLOOD SPECIMENOrdering Facility: [facility] Address: [address] [place] [address] Performed By: #### 5 7021-8 ####[facility] LABCLIA [id number] [place] [address] [facility] LABCLIA [id number] [place] [address] Hemoglobin (Bld) [Mass/Vol] 6.4 g/dL Low 13.0-17.0 [facility] Comment on above: Order Comment: Speci men Type: BLOOD SPECIMENOrdering Facility: [facility] Address: [address] [place] [address] Performed By: #### 5 7021-8 ####[facility] LABCLIA [id number] [address] LABCLIA [id number] [place] [address] Lymphocytes (Bld) [#/Vol] 1.19 10*3/uL Normal 1.00-4.00 [facility] Comment on above: Order Comment: Speci men Type: BLOOD SPECIMENOrdering Facility: [facility] Address: [address] [place] [address] Performed By: #### 5 7021-8 ####[facility] LABCLIA [id number] [address] LABCLIA [id number] [place] [address] Lymphocytes/100 WBC (Bld) 35.0 % Normal [facility] Comment on above: Order Comment: Speci men Type: BLOOD SPECIMENOrdering Facility: [facility] Address: [address] [place] [address] Performed By: #### 5 7021-8 ####[facility] LABCLIA [id number] [address] LABCLIA [id number] [place] [address] MCH (RBC) [Entitic mass] 31.7 pg Normal 26.0-34.0 [facility] Comment on above: Order Comment: Speci men Type: BLOOD SPECIMENOrdering Facility: [facility] Address: [address] [place] [address] Performed By: #### 5 7021-8 ####[facility] LABCLIA [id number] [address] LABCLIA [id number] [place] [address] MCHC (RBC) [Mass/Vol] 30.8 g/dL Normal 30.5-36.0 [facility] Comment on above: Order Comment: Speci men Type: BLOOD SPECIMENOrdering Facility: [facility] Address: [address] [place] [address] Performed By: #### 5 7021-8 ####[facility] LABCLIA [id number] [address] LABCLIA [id number] [place] [address] MCV (RBC) [Entitic vol] 103.0 fL High 80.0-100.0 [facility] Comment on above: Order Comment: Speci men Type: BLOOD SPECIMENOrdering Facility: [facility] Address: [address] [place] [address] Performed By: #### 5 7021-8 ####[facility] LABCLIA [id number] [address] LABCLIA [id number] [place] [address] Metamyelocytes/100 WBC (Bld) 2.0 % Normal [facility] Comment on above: Order Comment: Speci men Type: BLOOD SPECIMENOrdering Facility: [facility] Address: [address] [place] [address] Performed By: #### 5 7021-8 ####[facility] LABCLIA [id number] [address] LABCLIA [id number] [place] [address] Monocytes (Bld) [#/Vol] 0.54 10*3/uL Normal <0.87 [facility] Comment on above: Order Comment: Speci men Type: BLOOD SPECIMENOrdering Facility: [facility] Address: [address] [place] [address] Performed By: #### 5 7021-8 ####[facility] LABCLIA [id number] [address] LABCLIA [id number] [place] [address] Monocytes/100 WBC (Bld) 16.0 % Normal [facility] Comment on above: Order Comment: Speci men Type: BLOOD SPECIMENOrdering Facility: [facility] Address: [address] [place] [address] Performed By: #### 5 7021-8 ####[facility] LABCLIA [id number] [address] LABCLIA [id number] [place] [address] MYELO% 8.0 % Normal [facility] Comment on above: Order Comment: Speci men Type: BLOOD SPECIMENOrdering Facility: [facility] Address: [address] [place] [address] Performed By: #### 5 7021-8 ####[facility] LABCLIA [id number] [address] LABCLIA [id number] [place] [address] Neutrophils (Bld) [#/Vol] 1.26 10*3/uL Low 1.45-7.50 [facility] Comment on above: Order Comment: Speci men Type: BLOOD SPECIMENOrdering Facility: [facility] Address: [address] [place] [address] Performed By: #### 5 7021-8 ####[facility] LABCLIA [id number] [address] LABCLIA [id number] [place] [address] Neutrophils/100 WBC (Bld) 37.0 % Normal [facility] Comment on above: Order Comment: Speci men Type: BLOOD SPECIMENOrdering Facility: [facility] Address: [address] [place] [address] Performed By: #### 5 7021-8 ####[facility] LABCLIA [id number] [address] LABCLIA [id number] [place] [address] Nucleated RBC (Bld) [#/Vol] 0.07 10*3/uL High <0.01 [facility] Comment on above: Order Comment: Speci men Type: BLOOD SPECIMENOrdering Facility: [facility] Address: [address] [place] [address] Performed By: #### 5 7021-8 ####[facility] LABCLIA [id number] [address] LABCLIA [id number] [place] [address] Nucleated RBC/100 WBC (Bld) [Ratio] 2.0 /100 WBC Normal [facility] Comment on above: Order Comment: Speci men Type: BLOOD SPECIMENOrdering Facility: [facility] Address: [address] [place] [address] Performed By: #### 5 7021-8 ####[facility] LABCLIA [id number] [address] LABCLIA [id number] [place] [address] Ovalocytes LM Ql (Bld) Few Normal [facility] Comment on above: Order Comment: Speci men Type: BLOOD SPECIMENOrdering Facility: [facility] Address: [address] [place] [address] Performed By: #### 5 7021-8 ####[facility] LABCLIA [id number] [address] LABCLIA [id number] [place] [address] Platelet mean volume (Bld) [Entitic vol] Normal [facility] Comment on above: Order Comment: Speci men Type: BLOOD SPECIMENOrdering Facility: [facility] Address: [address] [place] [address] Result Comment: Unab le to Report. Performed By: #### 5 7021-8 ####[facility] LABCLIA [id number] [address] LABCLIA [id number] [place] [address] Platelets (Bld) [#/Vol] 60 10*3/uL Low 150-400 [facility] Comment on above: Order Comment: Speci men Type: BLOOD SPECIMENOrdering Facility: [facility] Address: [address] [place] [address] Result Comment: Resu lts checked and verified.No clot detected. Performed By: #### 5 7021-8 ####[facility] LABCLIA [id number] [address] LABCLIA [id number] [place] [address] Platelets Estimate (Bld) [#/Vol] Decreased Normal [facility] Comment on above: Order Comment: Speci men Type: BLOOD SPECIMENOrdering Facility: [facility] Address: [address] [place] [address] Performed By: #### 5 7021-8 ####[facility] LABCLIA [id number] LABCLIA [id number] [place] [address] Polychromasia LM Ql (Bld) Slight Normal [facility] Comment on above: Order Comment: Speci men Type: BLOOD SPECIMENOrdering Facility: [facility] Address: [address] [place] [address] Performed By: #### 5 7021-8 ####[facility] LABCLIA [id number] [address] LABCLIA [id number] [place] [address] RBC (Bld) [#/Vol] 2.02 10*6/uL Low 4.20-6.00 [facility] Comment on above: Order Comment: Speci men Type: BLOOD SPECIMENOrdering Facility: [facility] Address: [address] [place] [address] Performed By: #### 5 7021-8 ####[facility] LABCLIA [id number] [address] LABCLIA [id number] [place] [address] RED CELL MORPH Reviewed: see result s of individual morphologies Normal [facility] Comment on above: Order Comment: Speci men Type: BLOOD SPECIMENOrdering Facility: [facility] Address: [address] [place] [address] Performed By: #### 5 7021-8 ####[facility] LABCLIA [id number] [address] LABCLIA [id number] [place] [address] WBC (Bld) [#/Vol] 3.40 10*3/uL Low 3.70-11.00 [facility] Comment on above: Order Comment: Speci men Type: BLOOD SPECIMENOrdering Facility: [facility] Address: [address] [place] [address] Result Comment: Resu lts checked and verified.No clot detected. Performed By: #### 5 7021-8 ####[facility] LABCLIA [id number] [address] LABCLIA [id number] [place] [address] WBC Left Shift Ql (Bld) Present Normal [facility] Comment on above: Order Comment: Speci men Type: BLOOD SPECIMENOrdering Facility: [facility] Address: [address] [place] [address] Performed By: #### 5 7021-8 ####[facility] LABCLIA [id number] [address] LABCLIA [id number] [place] [address] Comprehensive metabolic 2000 panelon 10-16-2022 Albumin [Mass/Vol] 3.7 g/dL Low 3.9-4.9 [facility] Comment on above: Order Comment: Speci men Type: BLOOD SPECIMENOrdering Facility: [facility] Address: [address] [place] [address] Performed By: #### 2 4323-8 ####[facility] LABCLIA [id number] [place] [address] ALP [Catalytic activity/Vol] 165 U/L High 38-113 [facility] Comment on above: Order Comment: Speci men Type: BLOOD SPECIMENOrdering Facility: [facility] Address: [address] [place] [address] Performed By: #### 2 4323-8 ####[facility] LABCLIA [id number] [place] [address] ALT [Catalytic activity/Vol] 67 U/L High 10-54 [facility] Comment on above: Order Comment: Speci men Type: BLOOD SPECIMENOrdering Facility: [facility] Address: [address] [place] [address] Performed By: #### 2 4323-8 ####[facility] LABCLIA [id number] [place] [address] Anion gap [Moles/Vol] 12 mmol/L Normal 9-18 [facility] Comment on above: Order Comment: Speci men Type: BLOOD SPECIMENOrdering Facility: [facility] Address: [address] [place] [address] Performed By: #### 2 4323-8 ####[facility] LABCLIA [id number] [place] [address] AST [Catalytic activity/Vol] 36 U/L Normal 14-40 [facility] Comment on above: Order Comment: Speci men Type: BLOOD SPECIMENOrdering Facility: [facility] Address: [address] [place] [address] Performed By: #### 2 4323-8 ####[facility] LABCLIA [id number] [place] [address] Bilirubin [Mass/Vol] 0.8 mg/dL Normal 0.2-1.3 [facility] Comment on above: Order Comment: Speci men Type: BLOOD SPECIMENOrdering Facility: [facility] Address: [address] [place] [address] Performed By: #### 2 4323-8 ####[facility] LABCLIA [id number] [place] [address] Calcium [Mass/Vol] 9.2 mg/dL Normal 8.5-10.2 [facility] Comment on above: Order Comment: Speci men Type: BLOOD SPECIMENOrdering Facility: [facility] Address: [address] [place] [address] Performed By: #### 2 4323-8 ####[facility] LABCLIA [id number] [place] [address] Chloride [Moles/Vol] 100 mmol/L Normal 97-105 [facility] Comment on above: Order Comment: Speci men Type: BLOOD SPECIMENOrdering Facility: [facility] Address: [address] [place] [address] Performed By: #### 2 4323-8 ####[facility] LABCLIA [id number] [place] [address] CO2 [Moles/Vol] 30 mmol/L Normal 22-30 [facility] Comment on above: Order Comment: Speci men Type: BLOOD SPECIMENOrdering Facility: [facility] Address: [address] [place] [address] Performed By: #### 2 4323-8 ####[facility] LABCLIA [id number] [place] [address] Creatinine [Mass/Vol] 1.54 mg/dL High 0.73-1.22 [facility] Comment on above: Order Comment: Speci men Type: BLOOD SPECIMENOrdering Facility: [facility] Address: [address] [place] [address] Performed By: #### 2 4323-8 ####[facility] LABCLIA [id number] [place] [address] ESTIMATED GLOMERULAR FILTRATION RATE 44 mL/min/1.73m??? Low >=60 [facility] Comment on above: Order Comment: Speci men Type: BLOOD SPECIMENOrdering Facility: [facility] Address: [address] [place] [address] Result Comment: Faye mated Glomerular Filtration Rate (eGFR) is calculated using the 2020 CKD-EPI creatinine equation. This equation utilizes serum creatinine, sex, and age as parameters. The creatinine assay has traceable calibration to isotope dilution-mass spectrometry. Refer to KDIGO guidelines for clinical interpretation. In patients with unstable renal function, e.g. those with acute kidney injury, the eGFR may not accurately reflect actual GFR. Performed By: #### 2 4323-8 ####[facility] LABCLIA [id number] [place] [address] Glucose [Mass/Vol] 145 mg/dL High 74-99 [facility] Comment on above: Order Comment: Speci men Type: BLOOD SPECIMENOrdering Facility: [facility] Address: [address] [place] [address] Result Comment: The [place] Diabetes [employer] (ADA) provides guidance for cutoff values for fasting glucose and random glucose. The ADA defines fasting as no caloric intake for at least 8 hours. Fasting plasma glucose results between 100 to 125 mg/dL indicate increased risk for diabetes (prediabetes).Fasting plasma glucose results greater than or equal to 126 mg/dL meet the criteria for diagnosis of diabetes. In the absence of unequivocal hyperglycemia, results should be confirmed by repeat testing. In a patient with classic symptoms of hyperglycemia or hyperglycemic crisis, random plasma glucose results greater than or equal to 200 mg/dL meet the criteria for diagnosis of diabetes.Reference: Standards of Medical Care in Diabetes 2016, [employer] [place] [employer]. Diabetes Care. 2016.39(Suppl 1). Performed By: #### 2 4323-8 ####[facility] LABCLIA [id number] [place] [address] Potassium [Moles/Vol] 4.0 mmol/L Normal 3.7-5.1 [facility] Comment on above: Order Comment: Speci men Type: BLOOD SPECIMENOrdering Facility: [facility] Address: [address] [place] [address] Performed By: #### 2 4323-8 ####[facility] LABCLIA [id number] [place] [address] Protein [Mass/Vol] 6.9 g/dL Normal 6.3-8.0 [facility] Comment on above: Order Comment: Speci men Type: BLOOD SPECIMENOrdering Facility: [facility] Address: [address] [place] [address] Performed By: #### 2 4323-8 ####[facility] LABCLIA [id number] [place] [address] Sodium [Moles/Vol] 142 mmol/L Normal 136-144 [facility] Comment on above: Order Comment: Speci men Type: BLOOD SPECIMENOrdering Facility: [facility] Address: [address] [address] Performed By: #### 2 4323-8 ####[facility] LABCLIA [id number] [place] [address] Urea nitrogen [Mass/Vol] 26 mg/dL High 9-24 [facility] Comment on above: Order Comment: Speci men Type: BLOOD SPECIMENOrdering Facility: [facility] Address: [address] [address] Performed By: #### 2 4323-8 ####[facility] LABCLIA [id number] [place] [address] HEMOGRAM AND PLATELon 2022 Hematocrit (Bld) [Volume fraction] 19.3 % Critically low 42.0-54.0 [facility] Comment on above: Performed By: #### T NS, PRBC #### [facility] [address] [address] [address] Benito To Hemoglobin (Bld) [Mass/Vol] 6.3 g/dL Critically low 14.0-18.0 [facility] Comment on above: Performed By: #### T NS, PRBC #### [facility] [address] [address] [address] Benito To MCH (RBC) [Entitic mass] 32.6 pg Normal 25.9-34.0 [facility] Comment on above: Performed By: #### T NS, PRBC #### [facility] [address] [address] [address] Bneito To MCHC (RBC) [Mass/Vol] 32.6 g/dL Normal 29.9-35.2 [facility] Comment on above: Performed By: #### T NS, PRBC #### [facility] [address] [address] [address] Benito To MCV (RBC) [Entitic vol] 100.0 fL Critically high 80.0-94.0 [facility] Comment on above: Performed By: #### T NS, PRBC #### [facility] [address] [place] [address] Dr. Benito To PLT 53 103/ul Critically low 150-450 [facility] Comment on above: Performed By: #### T NS, PRBC #### [facility] [address] [place] [address] Dr. Benito To RBC 1.93 106/ul Critically low 4.70-6.10 [facility] Comment on above: Performed By: #### T NS, PRBC #### [facility] [address] [place] [address] Dr. Benito To WBC 2.8 103/ul Critically low 4.0-11.0 [facility] Comment on above: Performed By: #### T ZEHRA, PRBC #### [facility] [address] [place] [address] Dr. Benito To PRBC LEUKOREDUCEDon 10-17-19 PRBC LEUKOREDUCED Cross Match Result Compatible Unit Blood Type A Pos Unit Number [id number] Status Information Transfused Product ID Red Blood Cells Product Code [id number] Normal [facility] Comment on above: Performed By: #### T NS, PRBC #### [facility] [address] [place] [address] Dr. Benito To TYPE AND SCREENon 10-16-2022 TYPE AND SCREEN Negative Normal [facility] Comment on above: Performed By: #### T NS, PRBC #### [facility] [address] [place] [address] Dr. Benito To CNOVSPon 10-15-2022 CNOVSP Normal [facility] Consultation Noteon 10-16-19 Consultation Note [id number]#[id number]:1 27 Normal [facility] CBC W Auto Differential pane l (Bld)on 10-09-2022 Anisocytosis Ql (Bld) Present Normal [facility] Comment on above: Order Comment: Speci men Type: BLOOD SPECIMENOrdering Facility: [facility] Address: [address] [place] [address] Performed By: #### 5 7021-8 ####[facility] LABCLIA [id number] [address] LABCLIA [id number] [place] [address] Basophils (Bld) [#/Vol] 0.03 10*3/uL Normal <0.11 [facility] Comment on above: Order Comment: Speci men Type: BLOOD SPECIMENOrdering Facility: [facility] Address: [address] [place] [address] Performed By: #### 5 7021-8 ####[facility] LABCLIA [id number] [address] LABCLIA [id number] [place] [address] Basophils/100 WBC (Bld) 1.0 % Normal [facility] Comment on above: Order Comment: Speci men Type: BLOOD SPECIMENOrdering Facility: [facility] Address: [address] [place] [address] Performed By: #### 5 7021-8 ####[facility] LABCLIA [id number] [address] LABCLIA [id number] [place] [address] Differential cell count method Nom (Bld) Manual Normal [facility] Comment on above: Order Comment: Speci men Type: BLOOD SPECIMENOrdering Facility: [facility] Address: [address] [place] [address] Performed By: #### 5 7021-8 ####[facility] LABCLIA [id number] [address] LABCLIA [id number] [place] [address] Eosinophils (Bld) [#/Vol] 0.09 10*3/uL Normal <0.46 [facility] Comment on above: Order Comment: Speci men Type: BLOOD SPECIMENOrdering Facility: [facility] Address: [address] [place] [address] Performed By: #### 5 7021-8 ####[facility] LABCLIA [id number] [address] LABCLIA [id number] [place] [address] Eosinophils/100 WBC (Bld) 3.0 % Normal [facility] Comment on above: Order Comment: Speci men Type: BLOOD SPECIMENOrdering Facility: [facility] Address: [address] [place] [address] Performed By: #### 5 7021-8 ####[facility] LABCLIA [id number] [address] LABCLIA [id number] [place] [address] Erythrocyte distribution width (RBC) [Ratio] 21.2 % High 11.5-15.0 [facility] Comment on above: Order Comment: Speci men Type: BLOOD SPECIMENOrdering Facility: [facility] Address: [address] [place], [place] [address] Performed By: #### 5 7021-8 ####[facility] LABCLIA [id number] [address] LABIA [id number] [place] [address] Hematocrit (Bld) [Volume fraction] 24.0 % Low 39.0-51.0 [facility] Comment on above: Order Comment: Speci men Type: BLOOD SPECIMENOrdering Facility: [facility] Address: [address] [place], [place] [address] Performed By: #### 5 7021-8 ####[facility] LABCLIA [id number] [address] LABCLIA [id number] [place] [address] Hemoglobin (Bld) [Mass/Vol] 7.6 g/dL Low 13.0-17.0 [facility] Comment on above: Order Comment: Speci men Type: BLOOD SPECIMENOrdering Facility: [facility] Address: [address] [place] [address] Performed By: #### 5 7021-8 ####[facility] LABCLIA [id number] [address] LABCLIA [id number] [place] [address] Lymphocytes (Bld) [#/Vol] 1.31 10*3/uL Normal 1.00-4.00 [facility] Comment on above: Order Comment: Speci men Type: BLOOD SPECIMENOrdering Facility: [facility] Address: [address] [place] [address] Performed By: #### 5 7021-8 ####[facility] LABCLIA [id number] [address] LABCLIA [id number] [place] [address] Lymphocytes/100 WBC (Bld) 45.0 % Normal [facility] Comment on above: Order Comment: Speci men Type: BLOOD SPECIMENOrdering Facility: [facility] Address: [address] [place], [place] [address] Performed By: #### 5 7021-8 ####[facility] LABCLIA [id number] [address] LABCLIA [id number] [place] [address] MCH (RBC) [Entitic mass] 31.7 pg Normal 26.0-34.0 [facility] Comment on above: Order Comment: Speci men Type: BLOOD SPECIMENOrdering Facility: [facility] Address: [address] [place] [address] Performed By: #### 5 7021-8 ####[facility] LABIA [id number] [address] LABCLIA [id number] [place] [address] MCHC (RBC) [Mass/Vol] 31.7 g/dL Normal 30.5-36.0 [facility] Comment on above: Order Comment: Speci men Type: BLOOD SPECIMENOrdering Facility: [facility] Address: [address] [place] [address] Performed By: #### 5 7021-8 ####[facility] LABIA [id number] [address] LABCLIA [id number] [place] [address] MCV (RBC) [Entitic vol] 100.0 fL Normal 80.0-100.0 [facility] Comment on above: Order Comment: Speci men Type: BLOOD SPECIMENOrdering Facility: [facility] Address: [address] [place] [address] Performed By: #### 5 7021-8 ####[facility] LABIA [id number] [address] LABIA [id number] [place] [address] Monocytes (Bld) [#/Vol] 0.41 10*3/uL Normal <0.87 [facility] Comment on above: Order Comment: Speci men Type: BLOOD SPECIMENOrdering Facility: [facility] Address: [address] [address] Performed By: #### 5 7021-8 ####[facility] LABCLIA [id number] [address] LABCLIA [id number] [place] [address] Monocytes/100 WBC (Bld) 14.0 % Normal [facility] Comment on above: Order Comment: Speci men Type: BLOOD SPECIMENOrdering Facility: [facility] Address: [address] [place] [address] Performed By: #### 5 7021-8 ####[facility] LABCLIA [id number] [address] LABCLIA [id number] [place] [address] MYELO% 9.0 % Normal [facility] Comment on above: Order Comment: Speci men Type: BLOOD SPECIMENOrdering Facility: [facility] Address: [address] [place] [address] Performed By: #### 5 7021-8 ####[facility] LABCLIA [id number] [address] LABCLIA [id number] [place] [address] Neutrophils (Bld) [#/Vol] 0.84 10*3/uL Low 1.45-7.50 [facility] Comment on above: Order Comment: Speci men Type: BLOOD SPECIMENOrdering Facility: [facility] Address: [address] [place], [place] [address] Performed By: #### 5 7021-8 ####[facility] LABCLIA [id number] [address] LABCLIA [id number] [place] [address] Neutrophils/100 WBC (Bld) 29.0 % Normal [facility] Comment on above: Order Comment: Speci men Type: BLOOD SPECIMENOrdering Facility: [facility] Address: [address] [place] [address] Performed By: #### 5 7021-8 ####[facility] LABCLIA [id number] [address] LABCLIA [id number] [place] [address] Nucleated RBC (Bld) [#/Vol] 10*3/uL Normal <0.01 [facility] Comment on above: Order Comment: Speci men Type: BLOOD SPECIMENOrdering Facility: [facility] Address: [address] [place] [address] Performed By: #### 5 7021-8 ####[facility] LABCLIA [id number] [address] LABCLIA [id number] [place] [address] Nucleated RBC/100 WBC (Bld) [Ratio] 0.0 /100 WBC Normal [facility] Comment on above: Order Comment: Speci men Type: BLOOD SPECIMENOrdering Facility: [facility] Address: [address] [place], [place] [address] Performed By: #### 5 7021-8 ####[facility] LABCLIA [id number] [address] LABCLIA [id number] [place] [address] Ovalocytes LM Ql (Bld) Few Normal [facility] Comment on above: Order Comment: Speci men Type: BLOOD SPECIMENOrdering Facility: [facility] Address: [address] [place], [place] [address] Performed By: #### 5 7021-8 ####[facility] LABCLIA [id number] [address] LABCLIA [id number] [place] [address] Platelet mean volume (Bld) [Entitic vol] Normal [facility] Comment on above: Order Comment: Speci men Type: BLOOD SPECIMENOrdering Facility: [facility] Address: [address] [place] [address] Result Comment: Unab le to Report. Performed By: #### 5 7021-8 ####[facility] LABCLIA [id number] [address] LABCLIA [id number] [place] [address] Platelets (Bld) [#/Vol] 67 10*3/uL Low 150-400 [facility] Comment on above: Order Comment: Speci men Type: BLOOD SPECIMENOrdering Facility: [facility] Address: [address] [place] [address] Result Comment: Resu lts checked and verified.No clot detected. Performed By: #### 5 7021-8 ####[facility] LABCLIA [id number] [address] LABCLIA [id number] [place] [address] Platelets Estimate (Bld) [#/Vol] Decreased Normal [facility] Comment on above: Order Comment: Speci men Type: BLOOD SPECIMENOrdering Facility: [facility] Address: [address] [place] [address] Performed By: #### 5 7021-8 ####[facility] LABCLIA [id number] [address] LABCLIA [id number] [place] [address] Polychromasia LM Ql (Bld) Slight Normal [facility] Comment on above: Order Comment: Speci men Type: BLOOD SPECIMENOrdering Facility: [facility] Address: [address] [place] [address] Performed By: #### 5 7021-8 ####[facility] LABCLIA [id number] [address] LABCLIA [id number] [place] [address] RBC (Bld) [#/Vol] 2.40 10*6/uL Low 4.20-6.00 [facility] Comment on above: Order Comment: Speci men Type: BLOOD SPECIMENOrdering Facility: [facility] Address: [address] [place] [address] Performed By: #### 5 7021-8 ####[facility] LABCLIA [id number] [address] LABCLIA [id number] [place] [address] RED CELL MORPH Reviewed: see result s of individual morphologies Normal [facility] Comment on above: Order Comment: Speci men Type: BLOOD SPECIMENOrdering Facility: [facility] Address: [address] [place] [address] Performed By: #### 5 7021-8 ####[facility] LABCLIA [id number] [address] LABCLIA [id number] [place] [address] WBC (Bld) [#/Vol] 2.90 10*3/uL Low 3.70-11.00 [facility] Comment on above: Order Comment: Speci men Type: BLOOD SPECIMENOrdering Facility: [facility] Address: [address] [place] [address] Result Comment: Resu lts checked and verified.No clot detected. Performed By: #### 5 7021-8 ####[facility] LABCLIA [id number] [address] LABCLIA [id number] [place] [address] WBC Left Shift Ql (Bld) Present Normal [facility] Comment on above: Order Comment: Speci men Type: BLOOD SPECIMENOrdering Facility: [facility] Address: [address] [address] Performed By: #### 5 7021-8 ####[facility] LABCLIA [id number] [address] LABCLIA [id number] [place] [address] CNOVSPon 10-09-2022 CNOVSP Normal [facility] Comprehensive metabolic 2000 panelon 10-09-2022 Albumin [Mass/Vol] 3.7 g/dL Low 3.9-4.9 [facility] Comment on above: Order Comment: Speci men Type: BLOOD SPECIMENOrdering Facility: [facility] Address: [address] [place], [place] [address] Performed By: #### 2 4323-8 ####[facility] LABIA [id number] [place] [address] [place] ALP [Catalytic activity/Vol] 154 U/L High 38-113 [facility] Comment on above: Order Comment: Speci men Type: BLOOD SPECIMENOrdering Facility: [facility] Address: [address] Performed By: #### 2 4323-8 ####[facility] LABCLIA [id number] [place] [address] [place] ALT [Catalytic activity/Vol] 78 U/L High 10-54 [facility] Comment on above: Order Comment: Speci men Type: BLOOD SPECIMENOrdering Facility: [facility] Address: [address] Performed By: #### 2 4323-8 ####[facility] LABCLIA [id number] [place] [address] [place] Anion gap [Moles/Vol] 11 mmol/L Normal 9-18 [facility] Comment on above: Order Comment: Speci men Type: BLOOD SPECIMENOrdering Facility: [facility] Address: [address] [address] Performed By: #### 2 4323-8 ####[facility] LABCLIA [id number] [place] [address] [place] AST [Catalytic activity/Vol] 45 U/L High 14-40 [facility] Comment on above: Order Comment: Speci men Type: BLOOD SPECIMENOrdering Facility: [facility] Address: [address] Performed By: #### 2 4323-8 ####[facility] LABCLIA [id number] [place] [address] [place] Bilirubin [Mass/Vol] 0.7 mg/dL Normal 0.2-1.3 [facility] Comment on above: Order Comment: Speci men Type: BLOOD SPECIMENOrdering Facility: [facility] Address: [address] Performed By: #### 2 4323-8 ####[facility] LABCLIA [id number] [place] [address] [place] Calcium [Mass/Vol] 9.4 mg/dL Normal 8.5-10.2 [facility] Comment on above: Order Comment: Speci men Type: BLOOD SPECIMENOrdering Facility: [facility] Address: [address] Performed By: #### 2 4323-8 ####[facility] LABCLIA [id number] [place] Chloride [Moles/Vol] 102 mmol/L Normal 97-105 [facility] Comment on above: Order Comment: Speci men Type: BLOOD SPECIMENOrdering Facility: [facility] Address: [address] [place] [address] Performed By: #### 2 4323-8 ####[facility] LABCLIA [id number] [place] [address] [place] CO2 [Moles/Vol] 30 mmol/L Normal 22-30 [facility] Comment on above: Order Comment: Speci men Type: BLOOD SPECIMENOrdering Facility: [facility] Address: [address] [place] [address] Performed By: #### 2 4323-8 ####[facility] LABCLIA [id number] [place] [address] [place] Creatinine [Mass/Vol] 1.38 mg/dL High 0.73-1.22 [facility] Comment on above: Order Comment: Speci men Type: BLOOD SPECIMENOrdering Facility: [facility] Address: [address] [place] [address] Performed By: #### 2 4323-8 ####[facility] LABCLIA [id number] [address] [place] ESTIMATED GLOMERULAR FILTRATION RATE 51 mL/min/1.73m??? Low >=60 [facility] Comment on above: Order Comment: Speci men Type: BLOOD SPECIMENOrdering Facility: [facility] Address: [address] [place] [address] Result Comment: Faye mated Glomerular Filtration Rate (eGFR) is calculated using the 2020 CKD-EPI creatinine equation. This equation utilizes serum creatinine, sex, and age as parameters. The creatinine assay has traceable calibration to isotope dilution-mass spectrometry. Refer to KDIGO guidelines for clinical interpretation. In patients with unstable renal function, e.g. those with acute kidney injury, the eGFR may not accurately reflect actual GFR. Performed By: #### 2 4323-8 ####[facility] LABCLIA [id number] [place] [address] [place] Glucose [Mass/Vol] 163 mg/dL High 74-99 [facility] Comment on above: Order Comment: Speci men Type: BLOOD SPECIMENOrdering Facility: [facility] Address: [address] [place] [address] Result Comment: The [place] [employer] (ADA) provides guidance for cutoff values for fasting glucose and random glucose. The ADA defines fasting as no caloric intake for at least 8 hours. Fasting plasma glucose results between 100 to 125 mg/dL indicate increased risk for diabetes (prediabetes).Fasting plasma glucose results greater than or equal to 126 mg/dL meet the criteria for diagnosis of diabetes. In the absence of unequivocal hyperglycemia, results should be confirmed by repeat testing. In a patient with classic symptoms of hyperglycemia or hyperglycemic crisis, random plasma glucose results greater than or equal to 200 mg/dL meet the criteria for diagnosis of diabetes.Reference: Standards of Medical Care in Diabetes 2016, [employer]. Diabetes Care. 2016.39(Suppl 1). Performed By: #### 2 4323-8 ####[facility] LABCLIA [id number] [place] [address] [place] Potassium [Moles/Vol] 4.7 mmol/L Normal 3.7-5.1 [facility] Comment on above: Order Comment: Speci men Type: BLOOD SPECIMENOrdering Facility: [facility] Address: [address] [address] Performed By: #### 2 4323-8 ####[facility] LABCLIA [id number] [place] [address] [place] Protein [Mass/Vol] 7.0 g/dL Normal 6.3-8.0 [facility] Comment on above: Order Comment: Speci men Type: BLOOD SPECIMENOrdering Facility: [facility] Address: [address] [address] Performed By: #### 2 4323-8 ####[facility] LABCLIA [id number] [place] [address] [place] Sodium [Moles/Vol] 143 mmol/L Normal 136-144 [facility] Comment on above: Order Comment: Speci men Type: BLOOD SPECIMENOrdering Facility: [facility] Address: [address] [place] [address] Performed By: #### 2 4323-8 ####[facility] LABCLIA [id number] [place] [address] [place] Urea nitrogen [Mass/Vol] 24 mg/dL Normal 9-24 [facility] Comment on above: Order Comment: Speci men Type: BLOOD SPECIMENOrdering Facility: [facility] Address: [address] [place] [address] Performed By: #### 2 4323-8 ####[facility] LABCLIA [id number] [place] [address] [place] CBC W Auto Differential pane l (Bld)on 10-02-2022 Anisocytosis Ql (Bld) Present Normal [facility] Comment on above: Order Comment: Speci men Type: BLOOD SPECIMENOrdering Facility: [facility] Address: [address] [place], [place] [address] Performed By: #### 5 7021-8 ####[facility] LABCLIA [id number] [address] LABCLIA [id number] [place] [address] Basophils (Bld) [#/Vol] 0.05 10*3/uL Normal <0.11 [facility] Comment on above: Order Comment: Speci men Type: BLOOD SPECIMENOrdering Facility: [facility] Address: [address] [place], [place] [address] Performed By: #### 5 7021-8 ####[facility] LABCLIA [id number] [address] [place] [address] [facility] LABCLIA [id number] [place] [address] Basophils/100 WBC (Bld) 2.0 % Normal [facility] Comment on above: Order Comment: Speci men Type: BLOOD SPECIMENOrdering Facility: [facility] Address: [address] [place] [address] Performed By: #### 5 7021-8 ####[facility] LABCLIA [id number] [address] LABCLIA [id number] [place] [address] Differential cell count method Nom (Bld) Manual Normal [facility] Comment on above: Order Comment: Speci men Type: BLOOD SPECIMENOrdering Facility: [facility] Address: [address] [place] [address] Performed By: #### 5 7021-8 ####[facility] LABCLIA [id number] [address] LABCLIA [id number] [place] [address] Eosinophils (Bld) [#/Vol] 0.00 10*3/uL Normal <0.46 [facility] Comment on above: Order Comment: Speci men Type: BLOOD SPECIMENOrdering Facility: [facility] Address: [address] [place], [place] [address] Performed By: #### 5 7021-8 ####[facility] LABCLIA [id number] [address] LABIA [id number] [place] [address] Eosinophils/100 WBC (Bld) 0.0 % Normal [facility] Comment on above: Order Comment: Speci men Type: BLOOD SPECIMENOrdering Facility: [facility] Address: [address] [place] [address] Performed By: #### 5 7021-8 ####[facility] LABCLIA [id number] [address] [place] [address] [facility] LABCLIA [id number] [place] [address] Erythrocyte distribution width (RBC) [Ratio] 18.1 % High 11.5-15.0 [facility] Comment on above: Order Comment: Speci men Type: BLOOD SPECIMENOrdering Facility: [facility] Address: [address] Performed By: #### 5 7021-8 ####[facility] LABCLIA [id number] [address] LABCLIA [id number] [place] [address] Giant platelets LM Ql (Bld) Occasional Normal [facility] Comment on above: Order Comment: Speci men Type: BLOOD SPECIMENOrdering Facility: [facility] Address: [address] [place] [address] Performed By: #### 5 7021-8 ####[facility] LABCLIA [id number] [address] LABCLIA [id number] [place] [address] Hematocrit (Bld) [Volume fraction] 24.4 % Low 39.0-51.0 [facility] Comment on above: Order Comment: Speci men Type: BLOOD SPECIMENOrdering Facility: [facility] Address: [address] [place] [address] Performed By: #### 5 7021-8 ####[facility] LABCLIA [id number] [place] [address] [facility] LABCLIA [id number] [place] [address] Hemoglobin (Bld) [Mass/Vol] 7.8 g/dL Low 13.0-17.0 [facility] Comment on above: Order Comment: Speci men Type: BLOOD SPECIMENOrdering Facility: [facility] Address: [address] [place] [address] Performed By: #### 5 7021-8 ####[facility] LABCLIA [id number] [address] LABCLIA [id number] [place] [address] Lymphocytes (Bld) [#/Vol] 1.15 10*3/uL Normal 1.00-4.00 [facility] Comment on above: Order Comment: Speci men Type: BLOOD SPECIMENOrdering Facility: [facility] Address: [address] [place] [address] Performed By: #### 5 7021-8 ####[facility] LABCLIA [id number] [address] LABCLIA [id number] [place] [address] Lymphocytes/100 WBC (Bld) 42.0 % Normal [facility] Comment on above: Order Comment: Speci men Type: BLOOD SPECIMENOrdering Facility: [facility] Address: [address] [place], [place] [address] Performed By: #### 5 7021-8 ####[facility] LABCLIA [id number] [address] LABCLIA [id number] [place] [address] MCH (RBC) [Entitic mass] 32.8 pg Normal 26.0-34.0 [facility] Comment on above: Order Comment: Speci men Type: BLOOD SPECIMENOrdering Facility: [facility] Address: [address] [place], [place] [address] Performed By: #### 5 7021-8 ####[facility] LABCLIA [id number] [address] [address] [facility] LABCLIA [id number] [place] [address] MCHC (RBC) [Mass/Vol] 32.0 g/dL Normal 30.5-36.0 [facility] Comment on above: Order Comment: Speci men Type: BLOOD SPECIMENOrdering Facility: [facility] Address: [address] [place] [address] Performed By: #### 5 7021-8 ####[facility] LABCLIA [id number] [address] LABCLIA [id number] [place] [address] MCV (RBC) [Entitic vol] 102.5 fL High 80.0-100.0 [facility] Comment on above: Order Comment: Speci men Type: BLOOD SPECIMENOrdering Facility: [facility] Address: [address] [place] [address] Performed By: #### 5 7021-8 ####[facility] LABCLIA [id number] [address] LABCLIA [id number] [place] [address] Metamyelocytes/100 WBC (Bld) 4.0 % Normal [facility] Comment on above: Order Comment: Speci men Type: BLOOD SPECIMENOrdering Facility: [facility] Address: [address] [place] [address] Performed By: #### 5 7021-8 ####[facility] LABCLIA [id number] [address] [place] [address] [facility] LABCLIA [id number] [place] [address] Monocytes (Bld) [#/Vol] 0.41 10*3/uL Normal <0.87 [facility] Comment on above: Order Comment: Speci men Type: BLOOD SPECIMENOrdering Facility: [facility] Address: [address] [place] [address] Performed By: #### 5 7021-8 ####[facility] LABCLIA [id number] [address] LABCLIA [id number] [place] [address] Monocytes/100 WBC (Bld) 15.0 % Normal [facility] Comment on above: Order Comment: Speci men Type: BLOOD SPECIMENOrdering Facility: [facility] Address: [address] [place] [address] Performed By: #### 5 7021-8 ####[facility] LABCLIA [id number] [address] LABCLIA [id number] [place] [address] MYELO% 6.0 % Normal [facility] Comment on above: Order Comment: Speci men Type: BLOOD SPECIMENOrdering Facility: [facility] Address: [address] [place] [address] Performed By: #### 5 7021-8 ####[facility] LABCLIA [id number] [address] LABCLIA [id number] [place] [address] Neutrophils (Bld) [#/Vol] 0.85 10*3/uL Low 1.45-7.50 [facility] Comment on above: Order Comment: Speci men Type: BLOOD SPECIMENOrdering Facility: [facility] Address: [address] [place] [address] Performed By: #### 5 7021-8 ####[facility] LABCLIA [id number] [address] [address] [facility] LABCLIA [id number] [place] [address] Neutrophils/100 WBC (Bld) 31.0 % Normal [facility] Comment on above: Order Comment: Speci men Type: BLOOD SPECIMENOrdering Facility: [facility] Address: [address] [place], [place] [address] Performed By: #### 5 7021-8 ####[facility] LABCLIA [id number] [address] LABCLIA [id number] [place] [address] Nucleated RBC (Bld) [#/Vol] 10*3/uL Normal <0.01 [facility] Comment on above: Order Comment: Speci men Type: BLOOD SPECIMENOrdering Facility: [facility] Address: [address] [place] [address] Performed By: #### 5 7021-8 ####[facility] LABCLIA [id number] [address] LABCLIA [id number] [place] [address] Nucleated RBC/100 WBC (Bld) [Ratio] 0.0 /100 WBC Normal [facility] Comment on above: Order Comment: Speci men Type: BLOOD SPECIMENOrdering Facility: [facility] Address: [address] [place] [address] Performed By: #### 5 7021-8 ####[facility] LABCLIA [id number] [address] LABCLIA [id number] [place] [address] Ovalocytes LM Ql (Bld) Few Normal [facility] Comment on above: Order Comment: Speci men Type: BLOOD SPECIMENOrdering Facility: [facility] Address: [address] [place] [address] Performed By: #### 5 7021-8 ####[facility] LABCLIA [id number] [address] LABCLIA [id number] [place] [address] Platelet mean volume (Bld) [Entitic vol] Normal [facility] Comment on above: Order Comment: Speci men Type: BLOOD SPECIMENOrdering Facility: [facility] Address: [address] [place] [address] Result Comment: Unab le to report Performed By: #### 5 7021-8 ####[facility] LABCLIA [id number] [address] LABCLIA [id number] [place] [address] Platelets (Bld) [#/Vol] 64 10*3/uL Low 150-400 [facility] Comment on above: Order Comment: Speci men Type: BLOOD SPECIMENOrdering Facility: [facility] Address: [address] [place] [address] Result Comment: No c lot detected. Result rechecked. Performed By: #### 5 7021-8 ####[facility] LABCLIA [id number] [address] LABCLIA [id number] [place] [address] Platelets Estimate (Bld) [#/Vol] Decreased Normal [facility] Comment on above: Order Comment: Speci men Type: BLOOD SPECIMENOrdering Facility: [facility] Address: [address] [place] [address] Performed By: #### 5 7021-8 ####[facility] LABCLIA [id number] [address] [place] [address] LABCLIA [id number] [place] [address] RBC (Bld) [#/Vol] 2.38 10*6/uL Low 4.20-6.00 [facility] Comment on above: Order Comment: Speci men Type: BLOOD SPECIMENOrdering Facility: [facility] Address: [address] [place] [address] Performed By: #### 5 7021-8 ####[facility] LABCLIA [id number] [address] LABCLIA [id number] [place] [address] RED CELL MORPH Reviewed: see result s of individual morphologies Normal [facility] Comment on above: Order Comment: Speci men Type: BLOOD SPECIMENOrdering Facility: [facility] Address: [address] [place] [address] Performed By: #### 5 7021-8 ####[facility] LABCLIA [id number] [address] LABCLIA [id number] [place] [address] WBC (Bld) [#/Vol] 2.74 10*3/uL Low 3.70-11.00 [facility] Comment on above: Order Comment: Speci men Type: BLOOD SPECIMENOrdering Facility: [facility] Address: [address] [place] [address] Performed By: #### 5 7021-8 ####[facility] LABCLIA [id number] [address] LABCLIA [id number] [place] [address] WBC Left Shift Ql (Bld) Present Normal [facility] Comment on above: Order Comment: Speci men Type: BLOOD SPECIMENOrdering Facility: [facility] Address: [address] [address] Performed By: #### 5 7021-8 ####[facility] LABCLIA [id number] [place]ALEY [address] [address] [facility] LABCLIA [id number] [place] [address] CNPNon 10-02-2022 CNPN Normal [facility] Comprehensive metabolic 2000 panelon 10-02-2022 Albumin [Mass/Vol] 3.8 g/dL Low 3.9-4.9 [facility] Comment on above: Order Comment: Speci men Type: BLOOD SPECIMENOrdering Facility: [facility] Address: [address] [place] [address] Performed By: #### 2 4323-8 ####[facility] LABCLIA [id number] [place] [address] ALP [Catalytic activity/Vol] 155 U/L High 38-113 [facility] Comment on above: Order Comment: Speci men Type: BLOOD SPECIMENOrdering Facility: [facility] Address: [address] [place] [address] Performed By: #### 2 4323-8 ####[facility] LABCLIA [id number] [place] [address] ALT [Catalytic activity/Vol] 62 U/L High 10-54 [facility] Comment on above: Order Comment: Speci men Type: BLOOD SPECIMENOrdering Facility: [facility] Address: [address] [place] [address] Performed By: #### 2 4323-8 ####[facility] LABCLIA [id number] [place] [address] Anion gap [Moles/Vol] 9 mmol/L Normal 9-18 [facility] Comment on above: Order Comment: Speci men Type: BLOOD SPECIMENOrdering Facility: [facility] Address: [address] [address] Performed By: #### 2 4323-8 ####[facility] LABCLIA [id number] [place] [address] AST [Catalytic activity/Vol] 40 U/L Normal 14-40 [facility] Comment on above: Order Comment: Speci men Type: BLOOD SPECIMENOrdering Facility: [facility] Address: [address] [address] Performed By: #### 2 4323-8 ####[facility] LABCLIA [id number] [place] [address] Bilirubin [Mass/Vol] 0.9 mg/dL Normal 0.2-1.3 [facility] Comment on above: Order Comment: Speci men Type: BLOOD SPECIMENOrdering Facility: [facility] Address: [address] [place] [address] Performed By: #### 2 4323-8 ####[facility] LABCLIA [id number] [place] [address] Calcium [Mass/Vol] 9.2 mg/dL Normal 8.5-10.2 [facility] Comment on above: Order Comment: Speci men Type: BLOOD SPECIMENOrdering Facility: [facility] Address: [address] [place] [address] Performed By: #### 2 4323-8 ####[facility] LABCLIA [id number] [place] [address] Chloride [Moles/Vol] 99 mmol/L Normal 97-105 [facility] Comment on above: Order Comment: Speci men Type: BLOOD SPECIMENOrdering Facility: [facility] Address: [address] [place] [address] Performed By: #### 2 4323-8 ####[facility] LABCLIA [id number] [place] [address] CO2 [Moles/Vol] 33 mmol/L High 22-30 [facility] Comment on above: Order Comment: Speci men Type: BLOOD SPECIMENOrdering Facility: [facility] Address: [address] [address] Performed By: #### 2 4323-8 ####[facility] LABCLIA [id number] [place] [address] Creatinine [Mass/Vol] 1.47 mg/dL High 0.73-1.22 [facility] Comment on above: Order Comment: Speci men Type: BLOOD SPECIMENOrdering Facility: [facility] Address: [address] [address] Performed By: #### 2 4323-8 ####[facility] LABCLIA [id number] [place] [address] ESTIMATED GLOMERULAR FILTRATION RATE 47 mL/min/1.73m??? Low >=60 [facility] Comment on above: Order Comment: Speci men Type: BLOOD SPECIMENOrdering Facility: [facility] Address: [address] [place] [address] Result Comment: Faye mated Glomerular Filtration Rate (eGFR) is calculated using the 2020 CKD-EPI creatinine equation. This equation utilizes serum creatinine, sex, and age as parameters. The creatinine assay has traceable calibration to isotope dilution-mass spectrometry. Refer to KDIGO guidelines for clinical interpretation. In patients with unstable renal function, e.g. those with acute kidney injury, the eGFR may not accurately reflect actual GFR. Performed By: #### 2 4323-8 ####[facility] LABCLIA [id number] [place] [address] Glucose [Mass/Vol] 158 mg/dL High 74-99 [facility] Comment on above: Order Comment: Speci men Type: BLOOD SPECIMENOrdering Facility: [facility] Address: [address] [place] [address] Result Comment: The [place] [employer] (ADA) provides guidance for cutoff values for fasting glucose and random glucose. The ADA defines fasting as no caloric intake for at least 8 hours. Fasting plasma glucose results between 100 to 125 mg/dL indicate increased risk for diabetes (prediabetes).Fasting plasma glucose results greater than or equal to 126 mg/dL meet the criteria for diagnosis of diabetes. In the absence of unequivocal hyperglycemia, results should be confirmed by repeat testing. In a patient with classic symptoms of hyperglycemia or hyperglycemic crisis, random plasma glucose results greater than or equal to 200 mg/dL meet the criteria for diagnosis of diabetes.Reference: Standards of Medical Care in Diabetes 2016, [employer]. Diabetes Care. 2016.39(Suppl 1). Performed By: #### 2 4323-8 ####[facility] LABCLIA [id number] [place] [address] Potassium [Moles/Vol] 3.9 mmol/L Normal 3.7-5.1 [facility] Comment on above: Order Comment: Speci men Type: BLOOD SPECIMENOrdering Facility: [facility] Address: [address] [place] [address] Performed By: #### 2 4323-8 ####[facility] LABCLIA [id number] [place] [address] Protein [Mass/Vol] 6.8 g/dL Normal 6.3-8.0 [facility] Comment on above: Order Comment: Speci men Type: BLOOD SPECIMENOrdering Facility: [facility] Address: [address] [place] [address] Performed By: #### 2 4323-8 ####[facility] LABCLIA [id number] [place] [address] Sodium [Moles/Vol] 141 mmol/L Normal 136-144 [facility] Comment on above: Order Comment: Speci men Type: BLOOD SPECIMENOrdering Facility: [facility] Address: [address] [place] [address] Performed By: #### 2 4323-8 ####[facility] LABCLIA [id number] [place] [address] Urea nitrogen [Mass/Vol] 30 mg/dL High 9-24 [facility] Comment on above: Order Comment: Speci men Type: BLOOD SPECIMENOrdering Facility: [facility] Address: [address] [place] [address] Performed By: #### 2 4323-8 ####[facility] LABCLIA [id number] [place] [address] HEMOGLOBIN AND HEMATOCRITon 10-02-2022 Hematocrit (Bld) [Volume fraction] 24.6 % Critically low 42.0-54.0 [facility] Comment on above: Performed By: #### H GBHCT #### [facility] [address] [address] [address] Benito To Hemoglobin (Bld) [Mass/Vol] 7.9 g/dL Critically low 14.0-18.0 [facility] Comment on above: Performed By: #### H GBHCT #### [facility] [address] [address] [address] Benito To TYPE AND SCREENon 10-02-2022 TYPE AND SCREEN Negative Normal [facility] Comment on above: Performed By: #### T NS, PRBC #### [facility] [address] [address] [address] Benito To PRBC LEUKOREDUCEDon 10-02-19 23 ABO and Rh group Nom (Bld) Cross Match Result Compatible Unit Blood Type A Pos Unit Number [id number] Status Information Transfused Product ID Red Blood Cells Product Code [id number] Cross Match Result Compatible Unit Blood Type A Pos Unit Number [id number] Status Information Transfused Product ID Red Blood Cells Product Code [id number] [facility] Comment on above: Performed By: #### T NS, PRBC #### [facility] [address] [address] [address] Benito To ABO and Rh group Nom (Bld) Cross Match Result Compatible Unit Blood Type A Pos Unit Number [id number] Status Information Transfused Product ID Red Blood Cells Product Code [id number] Cross Match Result Compatible Unit Blood Type A Pos Unit Number [id number] Status Information Transfused Product ID Red Blood Cells Product Code [id number] Normal [facility] Comment on above: Performed By: #### P RBC, TNS #### [facility] [address] [address] [address] Benito To ABO and Rh group Nom (Bld) Cross Match Result Compatible Unit Blood Type A Pos Unit Number [id number] Status Information Released Specimen Exp Date [id number] Product ID Red Blood Cells Product Code [id number] Cross Match Result Compatible Unit Blood Type A Pos Unit Number [id number] Status Information Transfused Product ID Red Blood Cells Product Code [id number] [facility] Comment on above: Performed By: #### P RBC, TNS #### [facility] [address] [place] [address] Dr. Benito To PRBC LEUKOREDUCED Cross Match Result Compatible Unit Blood Type O Neg Unit Number [id number] Status Information Transfused Product ID Red Blood Cells Product Code [id number] [facility] Comment on above: Performed By: #### P RBC, TNS #### [facility] [address] [place] [address] Dr. Benito To CBC W Auto Differential pane l (Bld)on 09-25-2022 Anisocytosis Ql (Bld) Present Normal [facility] Comment on above: Order Comment: Speci men Type: BLOOD SPECIMENOrdering Facility: [facility] Address: [address] [place] [address] Performed By: #### 5 7021-8 ####[facility] LABCLIA [id number] [facility] [id number] LABCLIA [id number] [place] [address] Basophils (Bld) [#/Vol] 0.00 10*3/uL Normal <0.11 [facility] Comment on above: Order Comment: Speci men Type: BLOOD SPECIMENOrdering Facility: [facility] Address: [address] [place] [address] Performed By: #### 5 7021-8 ####[facility] LABCLIA [id number] [place] [id number] [facility] LABCLIA [id number] [place] [address] Basophils/100 WBC (Bld) 0.0 % Normal [facility] Comment on above: Order Comment: Speci men Type: BLOOD SPECIMENOrdering Facility: [facility] Address: [address] [place] [address] Performed By: #### 5 7021-8 ####[facility] LABCLIA [id number] [address] LABCLIA [id number] [place] [address] Differential cell count method Nom (Bld) Manual Normal [facility] Comment on above: Order Comment: Speci men Type: BLOOD SPECIMENOrdering Facility: [facility] Address: [address] [place] [address] Performed By: #### 5 7021-8 ####[facility] LABCLIA [id number] [address] LABCLIA [id number] [place] [address] Eosinophils (Bld) [#/Vol] 0.00 10*3/uL Normal <0.46 [facility] Comment on above: Order Comment: Speci men Type: BLOOD SPECIMENOrdering Facility: [facility] Address: [address] [place], [place] [address] Performed By: #### 5 7021-8 ####[facility] LABCLIA [id number] [address] LABCLIA [id number] [place] [address] Eosinophils/100 WBC (Bld) 0.0 % Normal [facility] Comment on above: Order Comment: Speci men Type: BLOOD SPECIMENOrdering Facility: [facility] Address: [address] [place] [address] Performed By: #### 5 7021-8 ####[facility] LABCLIA [id number] [address] LABCLIA [id number] [place] [address] Erythrocyte distribution width (RBC) [Ratio] 18.6 % High 11.5-15.0 [facility] Comment on above: Order Comment: Speci men Type: BLOOD SPECIMENOrdering Facility: [facility] Address: [address] [place] [address] Performed By: #### 5 7021-8 ####[facility] LABCLIA [id number] [address] LABCLIA [id number] [place] [address] Hematocrit (Bld) [Volume fraction] 21.7 % Low 39.0-51.0 [facility] Comment on above: Order Comment: Speci men Type: BLOOD SPECIMENOrdering Facility: [facility] Address: [address] [place] [address] Performed By: #### 5 7021-8 ####[facility] LABCLIA [id number] [address] LABCLIA [id number] [place] [address] Hemoglobin (Bld) [Mass/Vol] 6.9 g/dL Low 13.0-17.0 [facility] Comment on above: Order Comment: Speci men Type: BLOOD SPECIMENOrdering Facility: [facility] Address: [address] [place] [address] Performed By: #### 5 7021-8 ####[facility] LABCLIA [id number] [address] LABCLIA [id number] [place] [address] Lymphocytes (Bld) [#/Vol] 1.20 10*3/uL Normal 1.00-4.00 [facility] Comment on above: Order Comment: Speci men Type: BLOOD SPECIMENOrdering Facility: [facility] Address: [address] [place] [address] Performed By: #### 5 7021-8 ####[facility] LABCLIA [id number] [address] LABCLIA [id number] [place] [address] Lymphocytes/100 WBC (Bld) 32.0 % Normal [facility] Comment on above: Order Comment: Speci men Type: BLOOD SPECIMENOrdering Facility: [facility] Address: [address] [place] [address] Performed By: #### 5 7021-8 ####[facility] LABCLIA [id number] [address] LABCLIA [id number] [place] [address] MCH (RBC) [Entitic mass] 32.1 pg Normal 26.0-34.0 [facility] Comment on above: Order Comment: Speci men Type: BLOOD SPECIMENOrdering Facility: [facility] Address: [address] [place], [place] [address] Performed By: #### 5 7021-8 ####[facility] LABCLIA [id number] [address] LABCLIA [id number] [place] [address] MCHC (RBC) [Mass/Vol] 31.8 g/dL Normal 30.5-36.0 [facility] Comment on above: Order Comment: Speci men Type: BLOOD SPECIMENOrdering Facility: [facility] Address: [address] [place] [address] Performed By: #### 5 7021-8 ####[facility] LABCLIA [id number] [address] LABCLIA [id number] [place] [address] MCV (RBC) [Entitic vol] 100.9 fL High 80.0-100.0 [facility] Comment on above: Order Comment: Speci men Type: BLOOD SPECIMENOrdering Facility: [facility] Address: [address] [place] [address] Performed By: #### 5 7021-8 ####[facility] LABCLIA [id number] [address] LABCLIA [id number] [place] [address] Metamyelocytes/100 WBC (Bld) 1.0 % Normal [facility] Comment on above: Order Comment: Speci men Type: BLOOD SPECIMENOrdering Facility: [facility] Address: [address] [place] [address] Performed By: #### 5 7021-8 ####[facility] LABCLIA [id number] [address] LABCLIA [id number] [place] [address] Monocytes (Bld) [#/Vol] 0.41 10*3/uL Normal <0.87 [facility] Comment on above: Order Comment: Speci men Type: BLOOD SPECIMENOrdering Facility: [facility] Address: [address] [place] [address] Performed By: #### 5 7021-8 ####[facility] LABCLIA [id number] [address] [facility] LABCLIA [id number] [place] [address] Monocytes/100 WBC (Bld) 11.0 % Normal [facility] Comment on above: Order Comment: Speci men Type: BLOOD SPECIMENOrdering Facility: [facility] Address: [address] [place] [address] Performed By: #### 5 7021-8 ####[facility] LABCLIA [id number] [address] LABCLIA [id number] [place] [address] MYELO% 10.0 % Normal [facility] Comment on above: Order Comment: Speci men Type: BLOOD SPECIMENOrdering Facility: [facility] Address: [address] [place] [address] Performed By: #### 5 7021-8 ####[facility] LABCLIA [id number] [address] LABCLIA [id number] [place] [address] Neutrophils (Bld) [#/Vol] 1.73 10*3/uL Normal 1.45-7.50 [facility] Comment on above: Order Comment: Speci men Type: BLOOD SPECIMENOrdering Facility: [facility] Address: [address] [place], [place] [address] Performed By: #### 5 7021-8 ####[facility] LABCLIA [id number] [address] LABCLIA [id number] [place] [address] Neutrophils/100 WBC (Bld) 46.0 % Normal [facility] Comment on above: Order Comment: Speci men Type: BLOOD SPECIMENOrdering Facility: [facility] Address: [address] [place] [address] Performed By: #### 5 7021-8 ####[facility] LABCLIA [id number] [address] LABCLIA [id number] [place] [address] Nucleated RBC (Bld) [#/Vol] 10*3/uL Normal <0.01 [facility] Comment on above: Order Comment: Speci men Type: BLOOD SPECIMENOrdering Facility: [facility] Address: [address] [place] [address] Performed By: #### 5 7021-8 ####[facility] LABCLIA [id number] [address] LABCLIA [id number] [place] [address] Nucleated RBC/100 WBC (Bld) [Ratio] 0.0 /100 WBC Normal [facility] Comment on above: Order Comment: Speci men Type: BLOOD SPECIMENOrdering Facility: [facility] Address: [address] [place] [address] Performed By: #### 5 7021-8 ####[facility] LABCLIA [id number] [address] LABCLIA [id number] [place] [address] Ovalocytes LM Ql (Bld) Few Normal [facility] Comment on above: Order Comment: Speci men Type: BLOOD SPECIMENOrdering Facility: [facility] Address: [address] [place] [address] Performed By: #### 5 7021-8 ####[facility] LABCLIA [id number] [place] [id number] [facility] LABCLIA [id number] [place] [address] Platelet mean volume (Bld) [Entitic vol] Normal [facility] Comment on above: Order Comment: Speci men Type: BLOOD SPECIMENOrdering Facility: [facility] Address: [address] [place] [address] Result Comment: Unab le to Report. Performed By: #### 5 7021-8 ####[facility] LABCLIA [id number] [address] LABCLIA [id number] [place] [address] Platelets (Bld) [#/Vol] 71 10*3/uL Low 150-400 [facility] Comment on above: Order Comment: Speci men Type: BLOOD SPECIMENOrdering Facility: [facility] Address: [address] [place] [address] Result Comment: No c lot detected. Checked and Verified Performed By: #### 5 7021-8 ####[facility] LABCLIA [id number] [address] LABCLIA [id number] [place] [address] Platelets Estimate (Bld) [#/Vol] Decreased Normal [facility] Comment on above: Order Comment: Speci men Type: BLOOD SPECIMENOrdering Facility: [facility] Address: [address] [place] [address] Performed By: #### 5 7021-8 ####[facility] LABCLIA [id number] [address] LABCLIA [id number] [place] [address] RBC (Bld) [#/Vol] 2.15 10*6/uL Low 4.20-6.00 [facility] Comment on above: Order Comment: Speci men Type: BLOOD SPECIMENOrdering Facility: [facility] Address: [address] [place] [address] Performed By: #### 5 7021-8 ####[facility] LABCLIA [id number] [address] LABCLIA [id number] [place] [address] RED CELL MORPH Reviewed: see result s of individual morphologies Normal [facility] Comment on above: Order Comment: Speci men Type: BLOOD SPECIMENOrdering Facility: [facility] Address: [address] [place] [address] Performed By: #### 5 7021-8 ####[facility] LABCLIA [id number] [address] LABCLIA [id number] [place] [address] WBC (Bld) [#/Vol] 3.75 10*3/uL Normal 3.70-11.00 [facility] Comment on above: Order Comment: Speci men Type: BLOOD SPECIMENOrdering Facility: [facility] Address: [address] [place] [address] Result Comment: Resu lts checked and verified.No clot detected. Performed By: #### 5 7021-8 ####[facility] LABCLIA [id number] [address] LABCLIA [id number] [place] [address] WBC Left Shift Ql (Bld) Present Normal [facility] Comment on above: Order Comment: Speci men Type: BLOOD SPECIMENOrdering Facility: [facility] Address: [address] [place] [address] Performed By: #### 5 7021-8 ####[facility] LABCLIA [id number] [address] LABCLIA [id number] [place] [id number] CNPNon 03-01-2023 CNPN Normal [facility] Comprehensive metabolic 2000 panelon 09-25-2022 Albumin [Mass/Vol] 3.7 g/dL Low 3.9-4.9 [facility] Comment on above: Order Comment: Speci men Type: BLOOD SPECIMENOrdering Facility: [facility] Address: [address] [place] [address] Performed By: #### 2 4323-8 ####[facility] LABCLIA [id number] [place] [address] ALP [Catalytic activity/Vol] 159 U/L High 38-113 [facility] Comment on above: Order Comment: Speci men Type: BLOOD SPECIMENOrdering Facility: [facility] Address: [address] [place] [address] Performed By: #### 2 4323-8 ####[facility] LABCLIA [id number] [place] [address] ALT [Catalytic activity/Vol] 59 U/L High 10-54 [facility] Comment on above: Order Comment: Speci men Type: BLOOD SPECIMENOrdering Facility: [facility] Address: [address] [place] [address] Performed By: #### 2 4323-8 ####[facility] LABCLIA [id number] [place] [address] Anion gap [Moles/Vol] 9 mmol/L Normal 9-18 [facility] Comment on above: Order Comment: Speci men Type: BLOOD SPECIMENOrdering Facility: [facility] Address: [address] [place] [address] Performed By: #### 2 4323-8 ####[facility] LABIA [id number] [place] [address] AST [Catalytic activity/Vol] 35 U/L Normal 14-40 [facility] Comment on above: Order Comment: Speci men Type: BLOOD SPECIMENOrdering Facility: [facility] Address: [address] [place] [address] Performed By: #### 2 4323-8 ####[facility] LABCLIA [id number] [place] [address] Bilirubin [Mass/Vol] 1.0 mg/dL Normal 0.2-1.3 [facility] Comment on above: Order Comment: Speci men Type: BLOOD SPECIMENOrdering Facility: [facility] Address: [address] [place] [address] Performed By: #### 2 4323-8 ####[facility] LABCLIA [id number] [place] [address] Calcium [Mass/Vol] 9.1 mg/dL Normal 8.5-10.2 [facility] Comment on above: Order Comment: Speci men Type: BLOOD SPECIMENOrdering Facility: [facility] Address: [address] [place] [address] Performed By: #### 2 4323-8 ####[facility] LABCLIA [id number] [place] [address] Chloride [Moles/Vol] 101 mmol/L Normal 97-105 [facility] Comment on above: Order Comment: Speci men Type: BLOOD SPECIMENOrdering Facility: [facility] Address: [address] [place] [address] Performed By: #### 2 4323-8 ####[facility] LABCLIA [id number] [place] [address] CO2 [Moles/Vol] 31 mmol/L High 22-30 [facility] Comment on above: Order Comment: Speci men Type: BLOOD SPECIMENOrdering Facility: [facility] Address: [address] [place] [address] Performed By: #### 2 4323-8 ####[facility] LABCLIA [id number] [place] [address] Creatinine [Mass/Vol] 1.32 mg/dL High 0.73-1.22 [facility] Comment on above: Order Comment: Davi kateryna Type: BLOOD SPECIMENOrdering Facility: [facility] Address: [address] [place] [address] Performed By: #### 2 4323-8 ####[facility] LABCLIA [id number] [place] [address] ESTIMATED GLOMERULAR FILTRATION RATE 54 mL/min/1.73m??? Low >=60 [facility] Comment on above: Order Comment: Davi kateryna Type: BLOOD SPECIMENOrdering Facility: [facility] Address: [address] [place] [address] Result Comment: Faye mated Glomerular Filtration Rate (eGFR) is calculated using the 2020 CKD-EPI creatinine equation. This equation utilizes serum creatinine, sex, and age as parameters. The creatinine assay has traceable calibration to isotope dilution-mass spectrometry. Refer to KDIGO guidelines for clinical interpretation. In patients with unstable renal function, e.g. those with acute kidney injury, the eGFR may not accurately reflect actual GFR. Performed By: #### 2 4323-8 ####[facility] LABCLIA [id number] [place] [address] Glucose [Mass/Vol] 156 mg/dL High 74-99 [facility] Comment on above: Order Comment: Davi akteryna Type: BLOOD SPECIMENOrdering Facility: [facility] Address: [address] [place] [address] Result Comment: The [place] [employer] (ADA) provides guidance for cutoff values for fasting glucose and random glucose. The ADA defines fasting as no caloric intake for at least 8 hours. Fasting plasma glucose results between 100 to 125 mg/dL indicate increased risk for diabetes (prediabetes).Fasting plasma glucose results greater than or equal to 126 mg/dL meet the criteria for diagnosis of diabetes. In the absence of unequivocal hyperglycemia, results should be confirmed by repeat testing. In a patient with classic symptoms of hyperglycemia or hyperglycemic crisis, random plasma glucose results greater than or equal to 200 mg/dL meet the criteria for diagnosis of diabetes.Reference: Standards of Medical Care in Diabetes 2016, [employer] [place] [employer]. Diabetes Care. 2016.39(Suppl 1). Performed By: #### 2 4323-8 ####[facility] LABCLIA [id number] [place] [address] Potassium [Moles/Vol] 4.1 mmol/L Normal 3.7-5.1 [facility] Comment on above: Order Comment: Speci men Type: BLOOD SPECIMENOrdering Facility: [facility] Address: [address] [place] [address] Performed By: #### 2 4323-8 ####[facility] LABCLIA [id number] [place] [address] Protein [Mass/Vol] 6.7 g/dL Normal 6.3-8.0 [facility] Comment on above: Order Comment: Speci men Type: BLOOD SPECIMENOrdering Facility: [facility] Address: [address] [place] [address] Performed By: #### 2 4323-8 ####[facility] LABCLIA [id number] [place] [address] Sodium [Moles/Vol] 141 mmol/L Normal 136-144 [facility] Comment on above: Order Comment: Speci men Type: BLOOD SPECIMENOrdering Facility: [facility] Address: [address] [place] [address] Performed By: #### 2 4323-8 ####[facility] LABCLIA [id number] [place] [address] Urea nitrogen [Mass/Vol] 19 mg/dL Normal 9-24 [facility] Comment on above: Order Comment: Speci men Type: BLOOD SPECIMENOrdering Facility: [facility] Address: [address] [place] [address] Performed By: #### 2 4323-8 ####[facility] LABCLIA [id number] [place] [address] HEMOGLOBIN AND HEMATOCRITon 09-25-2022 Hematocrit (Bld) [Volume fraction] 21.2 % Critically low 42.0-54.0 [facility] Comment on above: Performed By: #### T NS, PRBC #### [facility] [address] [place] [address] [address] Benito To Hemoglobin (Bld) [Mass/Vol] 6.7 g/dL Critically low 14.0-18.0 [facility] Comment on above: Performed By: #### T NS, PRBC #### [facility] [address] [place] [address] [address] Benito To TYPE AND SCREENon 09-25-2022 TYPE AND SCREEN Negative Normal [facility] Comment on above: Performed By: #### P RBC, TNS #### [facility] [address] [place] [address] Dr. Benito To CBC W Auto Differential pane l (Bld)on 09-18-2022 Anisocytosis Ql (Bld) Present Normal [facility] Comment on above: Order Comment: Speci kateryna Type: BLOOD SPECIMENOrdering Facility: [facility] Address: [address] [place] [address] Performed By: #### 5 7021-8 ####[facility] LABCLIA [id number] [address] LABCLIA [id number] [place] [address] Basophils (Bld) [#/Vol] 0.09 10*3/uL Normal <0.11 [facility] Comment on above: Order Comment: Speci men Type: BLOOD SPECIMENOrdering Facility: [facility] Address: [address] [place] [address] Performed By: #### 5 7021-8 ####[facility] LABCLIA [id number] [address] LABCLIA [id number] [place] [address] Basophils/100 WBC (Bld) 4.0 % Normal [facility] Comment on above: Order Comment: Speci men Type: BLOOD SPECIMENOrdering Facility: [facility] Address: [address] [place] [address] Performed By: #### 5 7021-8 ####[facility] LABCLIA [id number] [address] LABCLIA [id number] [place] [address] Differential cell count method Nom (Bld) Manual Normal [facility] Comment on above: Order Comment: Speci men Type: BLOOD SPECIMENOrdering Facility: [facility] Address: [address] [place] [address] Performed By: #### 5 7021-8 ####[facility] LABCLIA [id number] [address] LABCLIA [id number] [place] [address] Eosinophils (Bld) [#/Vol] 0.00 10*3/uL Normal <0.46 [facility] Comment on above: Order Comment: Speci men Type: BLOOD SPECIMENOrdering Facility: [facility] Address: [address] [place] [address] Performed By: #### 5 7021-8 ####[facility] LABCLIA [id number] [address] LABCLIA [id number] [place] [address] Eosinophils/100 WBC (Bld) 0.0 % Normal [facility] Comment on above: Order Comment: Speci men Type: BLOOD SPECIMENOrdering Facility: [facility] Address: [address] [place] [address] Performed By: #### 5 7021-8 ####[facility] LABCLIA [id number] [address] LABCLIA [id number] [place] [address] Erythrocyte distribution width (RBC) [Ratio] 17.1 % High 11.5-15.0 [facility] Comment on above: Order Comment: Speci men Type: BLOOD SPECIMENOrdering Facility: [facility] Address: [address] [place] [address] Performed By: #### 5 7021-8 ####[facility] LABCLIA [id number] [address] LABCLIA [id number] [place] [address] Hematocrit (Bld) [Volume fraction] 25.3 % Low 39.0-51.0 [facility] Comment on above: Order Comment: Speci men Type: BLOOD SPECIMENOrdering Facility: [facility] Address: [address] [place] [address] Performed By: #### 5 7021-8 ####[facility] LABCLIA [id number] [address] LABCLIA [id number] [place] [address] Hemoglobin (Bld) [Mass/Vol] 8.0 g/dL Low 13.0-17.0 [facility] Comment on above: Order Comment: Speci men Type: BLOOD SPECIMENOrdering Facility: [facility] Address: [address] [place] [address] Performed By: #### 5 7021-8 ####[facility] LABCLIA [id number] [address] LABCLIA [id number] [place] [address] Lymphocytes (Bld) [#/Vol] 0.70 10*3/uL Low 1.00-4.00 [facility] Comment on above: Order Comment: Speci men Type: BLOOD SPECIMENOrdering Facility: [facility] Address: [address] [place] [address] Performed By: #### 5 7021-8 ####[facility] LABCLIA [id number] [address] LABCLIA [id number] [place] [address] Lymphocytes/100 WBC (Bld) 30.0 % Normal [facility] Comment on above: Order Comment: Speci men Type: BLOOD SPECIMENOrdering Facility: [facility] Address: [address] [place] [address] Performed By: #### 5 7021-8 ####[facility] LABCLIA [id number] [address] LABCLIA [id number] [place] [address] MCH (RBC) [Entitic mass] 31.9 pg Normal 26.0-34.0 [facility] Comment on above: Order Comment: Speci men Type: BLOOD SPECIMENOrdering Facility: [facility] Address: [address] [place] [address] Performed By: #### 5 7021-8 ####[facility] LABCLIA [id number] [address] LABCLIA [id number] [place] [address] MCHC (RBC) [Mass/Vol] 31.6 g/dL Normal 30.5-36.0 [facility] Comment on above: Order Comment: Speci men Type: BLOOD SPECIMENOrdering Facility: [facility] Address: [address] [place] [address] Performed By: #### 5 7021-8 ####[facility] LABCLIA [id number] [address] [facility] LABCLIA [id number] [place] [address] MCV (RBC) [Entitic vol] 100.8 fL High 80.0-100.0 [facility] Comment on above: Order Comment: Speci men Type: BLOOD SPECIMENOrdering Facility: [facility] Address: [address] [place] [address] Performed By: #### 5 7021-8 ####[facility] LABCLIA [id number] [address] LABCLIA [id number] [place] [address] Monocytes (Bld) [#/Vol] 0.21 10*3/uL Normal <0.87 [facility] Comment on above: Order Comment: Speci men Type: BLOOD SPECIMENOrdering Facility: [facility] Address: [address] [place] [address] Performed By: #### 5 7021-8 ####[facility] LABCLIA [id number] [address] LABCLIA [id number] [place] [address] Monocytes/100 WBC (Bld) 9.0 % Normal [facility] Comment on above: Order Comment: Speci men Type: BLOOD SPECIMENOrdering Facility: [facility] Address: [address] [place], [place] [address] Performed By: #### 5 7021-8 ####[facility] LABCLIA [id number] [address] LABCLIA [id number] [place] [address] MYELO% 11.0 % Normal [facility] Comment on above: Order Comment: Speci men Type: BLOOD SPECIMENOrdering Facility: [facility] Address: [address] [place], [place] [address] Performed By: #### 5 7021-8 ####[facility] LABCLIA [id number] [address] LABCLIA [id number] [place] [address] Neutrophils (Bld) [#/Vol] 1.10 10*3/uL Low 1.45-7.50 [facility] Comment on above: Order Comment: Speci men Type: BLOOD SPECIMENOrdering Facility: [facility] Address: [address] Performed By: #### 5 7021-8 ####[facility] LABCLIA [id number] [address] LABCLIA [id number] [place] [address] Neutrophils/100 WBC (Bld) 47.0 % Normal [facility] Comment on above: Order Comment: Speci men Type: BLOOD SPECIMENOrdering Facility: [facility] Address: [address] Performed By: #### 5 7021-8 ####[facility] LABCLIA [id number] [address] LABCLIA [id number] [place] [address] Nucleated RBC (Bld) [#/Vol] 10*3/uL Normal <0.01 [facility] Comment on above: Order Comment: Speci men Type: BLOOD SPECIMENOrdering Facility: [facility] Address: [address] [place] [address] Performed By: #### 5 7021-8 ####[facility] LABCLIA [id number] [address] LABCLIA [id number] [place] [address] Nucleated RBC/100 WBC (Bld) [Ratio] 0.0 /100 WBC Normal [facility] Comment on above: Order Comment: Speci men Type: BLOOD SPECIMENOrdering Facility: [facility] Address: [address] [place] [address] Performed By: #### 5 7021-8 ####[facility] LABCLIA [id number] [address] LABCLIA [id number] [place] [address] Ovalocytes LM Ql (Bld) Few Normal [facility] Comment on above: Order Comment: Speci men Type: BLOOD SPECIMENOrdering Facility: [facility] Address: [address] [place] [address] Performed By: #### 5 7021-8 ####[facility] LABCLIA [id number] [address] LABCLIA [id number] [place] [address] Platelet mean volume (Bld) [Entitic vol] Normal [facility] Comment on above: Order Comment: Speci men Type: BLOOD SPECIMENOrdering Facility: [facility] Address: [address] [place] [address] Result Comment: Unab le to Report. Performed By: #### 5 7021-8 ####[facility] LABCLIA [id number] [address] LABCLIA [id number] [place] [address] Platelets (Bld) [#/Vol] 65 10*3/uL Low 150-400 [facility] Comment on above: Order Comment: Speci men Type: BLOOD SPECIMENOrdering Facility: [facility] Address: [address] [place] [address] Result Comment: Resu lts checked and verified.No clot detected. Performed By: #### 5 7021-8 ####[facility] LABCLIA [id number] [address] LABCLIA [id number] [place] [address] Platelets Estimate (Bld) [#/Vol] Decreased Normal [facility] Comment on above: Order Comment: Speci men Type: BLOOD SPECIMENOrdering Facility: [facility] Address: [address] [place] [address] Performed By: #### 5 7021-8 ####[facility] LABCLIA [id number] [address] LABCLIA [id number] [place] [address] Polychromasia LM Ql (Bld) Slight Normal [facility] Comment on above: Order Comment: Speci men Type: BLOOD SPECIMENOrdering Facility: [facility] Address: [address] [place] [address] Performed By: #### 5 7021-8 ####[facility] LABCLIA [id number] [address] LABCLIA [id number] [place] [address] RBC (Bld) [#/Vol] 2.51 10*6/uL Low 4.20-6.00 [facility] Comment on above: Order Comment: Speci men Type: BLOOD SPECIMENOrdering Facility: [facility] Address: [address] [place] [address] Performed By: #### 5 7021-8 ####[facility] LABCLIA [id number] [address] LABCLIA [id number] [place] [address] RED CELL MORPH Reviewed: see result s of individual morphologies Normal [facility] Comment on above: Order Comment: Speci men Type: BLOOD SPECIMENOrdering Facility: [facility] Address: [address] [place] [address] Performed By: #### 5 7021-8 ####[facility] LABCLIA [id number] [address] LABCLIA [id number] [place] [address] WBC (Bld) [#/Vol] 2.33 10*3/uL Low 3.70-11.00 [facility] Comment on above: Order Comment: Speci men Type: BLOOD SPECIMENOrdering Facility: [facility] Address: [address] [place] [address] Result Comment: Resu lts checked and verified.No clot detected. Performed By: #### 5 7021-8 ####[facility] LABCLIA [id number] [address] LABCLIA [id number] [place] [address] WBC Left Shift Ql (Bld) Present Normal [facility] Comment on above: Order Comment: Speci men Type: BLOOD SPECIMENOrdering Facility: [facility] Address: [address] [place] [address] Performed By: #### 5 7021-8 ####[facility] LABCLIA [id number] [address] LABCLIA [id number] [place] [address] CNOVSPon 09-18-2022 CNOVSP Normal [facility] Comprehensive metabolic 2000 panelon 09-18-2022 Albumin [Mass/Vol] 3.9 g/dL Normal 3.9-4.9 [facility] Comment on above: Order Comment: Speci men Type: BLOOD SPECIMENOrdering Facility: [facility] Address: [address] [place] [address] Performed By: #### 2 4323-8 ####[facility] LABCLIA [id number] [place] [address] ALP [Catalytic activity/Vol] 164 U/L High 38-113 [facility] Comment on above: Order Comment: Speci men Type: BLOOD SPECIMENOrdering Facility: [facility] Address: [address] [place] [address] Performed By: #### 2 4323-8 ####[facility] LABCLIA [id number] [place] [address] ALT [Catalytic activity/Vol] 60 U/L High 10-54 [facility] Comment on above: Order Comment: Speci men Type: BLOOD SPECIMENOrdering Facility: [facility] Address: [address] [place] [address] Performed By: #### 2 4323-8 ####[facility] LABCLIA [id number] [place] [address] Anion gap [Moles/Vol] 11 mmol/L Normal 9-18 [facility] Comment on above: Order Comment: Speci men Type: BLOOD SPECIMENOrdering Facility: [facility] Address: [address] [place] [address] Performed By: #### 2 4323-8 ####[facility] LABCLIA [id number] [place] [address] AST [Catalytic activity/Vol] 36 U/L Normal 14-40 [facility] Comment on above: Order Comment: Speci men Type: BLOOD SPECIMENOrdering Facility: [facility] Address: [address] [place] [address] Performed By: #### 2 4323-8 ####[facility] LABCLIA [id number] [place] [address] Bilirubin [Mass/Vol] 1.2 mg/dL Normal 0.2-1.3 [facility] Comment on above: Order Comment: Speci men Type: BLOOD SPECIMENOrdering Facility: [facility] Address: [address] [place] [address] Performed By: #### 2 4323-8 ####[facility] LABCLIA [id number] [place] [address] Calcium [Mass/Vol] 9.0 mg/dL Normal 8.5-10.2 [facility] Comment on above: Order Comment: Speci men Type: BLOOD SPECIMENOrdering Facility: [facility] Address: [address] [place] [address] Performed By: #### 2 4323-8 ####[facility] LABCLIA [id number] [place] [address] Chloride [Moles/Vol] 100 mmol/L Normal 97-105 [facility] Comment on above: Order Comment: Speci men Type: BLOOD SPECIMENOrdering Facility: [facility] Address: [address] [place] [address] Performed By: #### 2 4323-8 ####[facility] LABCLIA [id number] [place] [address] CO2 [Moles/Vol] 33 mmol/L High 22-30 [facility] Comment on above: Order Comment: Speci men Type: BLOOD SPECIMENOrdering Facility: [facility] Address: [address] [place] [address] Performed By: #### 2 4323-8 ####[facility] LABCLIA [id number] [place] [address] Creatinine [Mass/Vol] 1.40 mg/dL High 0.73-1.22 [facility] Comment on above: Order Comment: Speci men Type: BLOOD SPECIMENOrdering Facility: [facility] Address: [address] [place] [address] Performed By: #### 2 4323-8 ####[facility] LABCLIA [id number] [place] [address] ESTIMATED GLOMERULAR FILTRATION RATE 50 mL/min/1.73m??? Low >=60 [facility] Comment on above: Order Comment: Davi avendaño Type: BLOOD SPECIMENOrdering Facility: [facility] Address: [address] [place] [address] Result Comment: Faye mated Glomerular Filtration Rate (eGFR) is calculated using the 2020 CKD-EPI creatinine equation. This equation utilizes serum creatinine, sex, and age as parameters. The creatinine assay has traceable calibration to isotope dilution-mass spectrometry. Refer to KDIGO guidelines for clinical interpretation. In patients with unstable renal function, e.g. those with acute kidney injury, the eGFR may not accurately reflect actual GFR. Performed By: #### 2 4323-8 ####[facility] LABCLIA [id number] [place] [address] Glucose [Mass/Vol] 143 mg/dL High 74-99 [facility] Comment on above: Order Comment: Davi avendaño Type: BLOOD SPECIMENOrdering Facility: [facility] Address: [address] [place] [address] Result Comment: The [place] [employer] (ADA) provides guidance for cutoff values for fasting glucose and random glucose. The ADA defines fasting as no caloric intake for at least 8 hours. Fasting plasma glucose results between 100 to 125 mg/dL indicate increased risk for diabetes (prediabetes).Fasting plasma glucose results greater than or equal to 126 mg/dL meet the criteria for diagnosis of diabetes. In the absence of unequivocal hyperglycemia, results should be confirmed by repeat testing. In a patient with classic symptoms of hyperglycemia or hyperglycemic crisis, random plasma glucose results greater than or equal to 200 mg/dL meet the criteria for diagnosis of diabetes.Reference: Standards of Medical Care in Diabetes 2016, [employer] [place] [employer]. Diabetes Care. 2016.39(Suppl 1). Performed By: #### 2 4323-8 ####[facility] LABCLIA [id number] [place] [address] Potassium [Moles/Vol] 3.8 mmol/L Normal 3.7-5.1 [facility] Comment on above: Order Comment: Speci men Type: BLOOD SPECIMENOrdering Facility: [facility] Address: [address] [place] [address] Performed By: #### 2 4323-8 ####[facility] LABCLIA [id number] [place] [address] Protein [Mass/Vol] 6.7 g/dL Normal 6.3-8.0 [facility] Comment on above: Order Comment: Speci men Type: BLOOD SPECIMENOrdering Facility: [facility] Address: [address] [place] [address] Performed By: #### 2 4323-8 ####[facility] LABCLIA [id number] [place] [address] Sodium [Moles/Vol] 144 mmol/L Normal 136-144 [facility] Comment on above: Order Comment: Speci men Type: BLOOD SPECIMENOrdering Facility: [facility] Address: [address] [place] [address] Performed By: #### 2 4323-8 ####[facility] LABCLIA [id number] [place] [address] Urea nitrogen [Mass/Vol] 21 mg/dL Normal 9-24 [facility] Comment on above: Order Comment: Speci men Type: BLOOD SPECIMENOrdering Facility: [facility] Address: [address] [place] [address] Performed By: #### 2 4323-8 ####[facility] LABCLIA [id number] [place] [address] Office Visiton 09-16-2022 Follow-up visit [id number] Sandip Broussard 1940 M Date Provider Department Center 09/16/2022 [facility] Family History Problem Relation Age of Onset Hypertension Mother Stroke Father Breast cancer Sister Family Status - Relation Status Age at Mother Father Sister Level of Service:03548 MO OFFICE/OUTPATIENT ESTABLISHED MOD MDM 30-39 MIN Reason for Visit and Comments: Valve Disorder [3372] Atrial Fibrillation [80] Congestive Heart Failure [127] Coronary Artery Disease [187] Normal [facility] CBC W Auto Differential pane l (Bld)on 09-11-2022 Anisocytosis Ql (Bld) Present Normal [facility] Comment on above: Order Comment: Speci men Type: BLOOD SPECIMENOrdering Facility: [facility] Address: [address] [place] [address] Performed By: #### 5 7021-8 ####[facility] LABCLIA [id number] [address] LABCLIA [id number] [place] [address] Basophils (Bld) [#/Vol] 0.00 10*3/uL Normal <0.11 [facility] Comment on above: Order Comment: Speci men Type: BLOOD SPECIMENOrdering Facility: [facility] Address: [address] [place] [address] Performed By: #### 5 7021-8 ####[facility] LABCLIA [id number] [address] LABCLIA [id number] [place] [address] Basophils/100 WBC (Bld) 0.0 % Normal [facility] Comment on above: Order Comment: Speci men Type: BLOOD SPECIMENOrdering Facility: [facility] Address: [address] [place] [address] Performed By: #### 5 7021-8 ####[facility] LABCLIA [id number] [address] LABCLIA [id number] [place] [address] BLAST% 1.0 % High <=0.0 [facility] Comment on above: Order Comment: Speci men Type: BLOOD SPECIMENOrdering Facility: [facility] Address: [address] [place] [address] Performed By: #### 5 7021-8 ####[facility] LABCLIA [id number] [address] LABCLIA [id number] [place] [address] Differential cell count method Nom (Bld) Manual Normal [facility] Comment on above: Order Comment: Speci men Type: BLOOD SPECIMENOrdering Facility: [facility] Address: [address] [place], [place] [address] Performed By: #### 5 7021-8 ####[facility] LABCLIA [id number] [address] LABCLIA [id number] [place] [address] DYSPLASTIC PMNS Occasional Normal [facility] Comment on above: Order Comment: Speci men Type: BLOOD SPECIMENOrdering Facility: [facility] Address: [address] [place], [place] [address] Performed By: #### 5 7021-8 ####[facility] LABCLIA [id number] [address] LABCLIA [id number] [place] [address] Eosinophils (Bld) [#/Vol] 0.00 10*3/uL Normal <0.46 [facility] Comment on above: Order Comment: Speci men Type: BLOOD SPECIMENOrdering Facility: [facility] Address: [address] [place] [address] Performed By: #### 5 7021-8 ####[facility] LABCLIA [id number] [place] [id number] [facility] LABCLIA [id number] [place] [address] Eosinophils/100 WBC (Bld) 0.0 % Normal [facility] Comment on above: Order Comment: Speci men Type: BLOOD SPECIMENOrdering Facility: [facility] Address: [address] [place] [address] Performed By: #### 5 7021-8 ####[facility] LABCLIA [id number] [address] LABCLIA [id number] [place] [address] Erythrocyte distribution width (RBC) [Ratio] 16.1 % High 11.5-15.0 [facility] Comment on above: Order Comment: Speci men Type: BLOOD SPECIMENOrdering Facility: [facility] Address: [address] [place] [address] Performed By: #### 5 7021-8 ####[facility] LABCLIA [id number] [address] LABCLIA [id number] [place] [address] Giant platelets LM Ql (Bld) Occasional Normal [facility] Comment on above: Order Comment: Speci men Type: BLOOD SPECIMENOrdering Facility: [facility] Address: [address] [place] [address] Performed By: #### 5 7021-8 ####[facility] LABCLIA [id number] [address] LABCLIA [id number] [place] [address] Hematocrit (Bld) [Volume fraction] 22.5 % Low 39.0-51.0 [facility] Comment on above: Order Comment: Speci men Type: BLOOD SPECIMENOrdering Facility: [facility] Address: [address] [place] [address] Performed By: #### 5 7021-8 ####[facility] LABCLIA [id number] [address] LABCLIA [id number] [place] [address] Hemoglobin (Bld) [Mass/Vol] 7.2 g/dL Low 13.0-17.0 [facility] Comment on above: Order Comment: Speci men Type: BLOOD SPECIMENOrdering Facility: [facility] Address: [address] [place] [address] Performed By: #### 5 7021-8 ####[facility] LABCLIA [id number] [address] LABCLIA [id number] [place] [address] Lymphocytes (Bld) [#/Vol] 0.97 10*3/uL Low 1.00-4.00 [facility] Comment on above: Order Comment: Speci men Type: BLOOD SPECIMENOrdering Facility: [facility] Address: [address] [place] [address] Performed By: #### 5 7021-8 ####[facility] LABCLIA [id number] [address] LABCLIA [id number] [place] [address] Lymphocytes/100 WBC (Bld) 43.0 % Normal [facility] Comment on above: Order Comment: Speci men Type: BLOOD SPECIMENOrdering Facility: [facility] Address: [address] [place] [address] Performed By: #### 5 7021-8 ####[facility] LABCLIA [id number] [address] LABCLIA [id number] [place] [address] MCH (RBC) [Entitic mass] 31.3 pg Normal 26.0-34.0 [facility] Comment on above: Order Comment: Speci men Type: BLOOD SPECIMENOrdering Facility: [facility] Address: [address] [place] [address] Performed By: #### 5 7021-8 ####[facility] LABCLIA [id number] [address] LABCLIA [id number] [place] [address] MCHC (RBC) [Mass/Vol] 32.0 g/dL Normal 30.5-36.0 [facility] Comment on above: Order Comment: Speci men Type: BLOOD SPECIMENOrdering Facility: [facility] Address: [address] [place] [address] Performed By: #### 5 7021-8 ####[facility] LABCLIA [id number] [address] LABCLIA [id number] [place] [address] MCV (RBC) [Entitic vol] 97.8 fL Normal 80.0-100.0 [facility] Comment on above: Order Comment: Speci men Type: BLOOD SPECIMENOrdering Facility: [facility] Address: [address] [place] [address] Performed By: #### 5 7021-8 ####[facility] LABCLIA [id number] [address] LABCLIA [id number] [place] [address] Metamyelocytes/100 WBC (Bld) 2.0 % Normal [facility] Comment on above: Order Comment: Speci men Type: BLOOD SPECIMENOrdering Facility: [facility] Address: [address] [place] [address] Performed By: #### 5 7021-8 ####[facility] LABCLIA [id number] [address] LABCLIA [id number] [place] [address] Monocytes (Bld) [#/Vol] 0.25 10*3/uL Normal <0.87 [facility] Comment on above: Order Comment: Speci men Type: BLOOD SPECIMENOrdering Facility: [facility] Address: [address] [place] [address] Performed By: #### 5 7021-8 ####[facility] LABCLIA [id number] [address] LABCLIA [id number] [place] [address] Monocytes/100 WBC (Bld) 11.0 % Normal [facility] Comment on above: Order Comment: Speci men Type: BLOOD SPECIMENOrdering Facility: [facility] Address: [address] [place] [address] Performed By: #### 5 7021-8 ####[facility] LABCLIA [id number] [address] LABCLIA [id number] [place] [address] MYELO% 6.0 % Normal [facility] Comment on above: Order Comment: Speci men Type: BLOOD SPECIMENOrdering Facility: [facility] Address: [address] [place], [place] [address] Performed By: #### 5 7021-8 ####[facility] LABCLIA [id number] [address] LABCLIA [id number] [place] [address] Neutrophils (Bld) [#/Vol] 0.83 10*3/uL Low 1.45-7.50 [facility] Comment on above: Order Comment: Speci men Type: BLOOD SPECIMENOrdering Facility: [facility] Address: [address] [place] [address] Performed By: #### 5 7021-8 ####[facility] LABCLIA [id number] [address] LABCLIA [id number] [place] [address] Neutrophils/100 WBC (Bld) 37.0 % Normal [facility] Comment on above: Order Comment: Speci men Type: BLOOD SPECIMENOrdering Facility: [facility] Address: [address] [place] [address] Performed By: #### 5 7021-8 ####[facility] LABCLIA [id number] [address] LABCLIA [id number] [place] [address] Nucleated RBC (Bld) [#/Vol] 0.02 10*3/uL High <0.01 [facility] Comment on above: Order Comment: Speci men Type: BLOOD SPECIMENOrdering Facility: [facility] Address: [address] [place] [address] Performed By: #### 5 7021-8 ####[facility] LABCLIA [id number] [address] LABCLIA [id number] [place] [address] Nucleated RBC/100 WBC (Bld) [Ratio] 1.0 /100 WBC Normal [facility] Comment on above: Order Comment: Speci men Type: BLOOD SPECIMENOrdering Facility: [facility] Address: [address] [place] [address] Performed By: #### 5 7021-8 ####[facility] LABCLIA [id number] [place] [id number] LABCLIA [id number] [place] [address] Ovalocytes LM Ql (Bld) Few Normal [facility] Comment on above: Order Comment: Speci men Type: BLOOD SPECIMENOrdering Facility: [facility] Address: [address] [place] [address] Performed By: #### 5 7021-8 ####[facility] LABCLIA [id number] [address] LABCLIA [id number] [place] [address] Platelet mean volume (Bld) [Entitic vol] Normal [facility] Comment on above: Order Comment: Speci men Type: BLOOD SPECIMENOrdering Facility: [facility] Address: [address] [place] [address] Result Comment: Unab le to report Performed By: #### 5 7021-8 ####[facility] LABCLIA [id number] [address] LABCLIA [id number] [place] [address] Platelets (Bld) [#/Vol] 62 10*3/uL Low 150-400 [facility] Comment on above: Order Comment: Speci men Type: BLOOD SPECIMENOrdering Facility: [facility] Address: [address] [place] [address] Performed By: #### 5 7021-8 ####[facility] LABCLIA [id number] [address] LABIA [id number] [place] [address] Platelets Estimate (Bld) [#/Vol] Decreased Normal [facility] Comment on above: Order Comment: Speci men Type: BLOOD SPECIMENOrdering Facility: [facility] Address: [address] [place] [address] Performed By: #### 5 7021-8 ####[facility] LABCLIA [id number] [address] LABCLIA [id number] [place] [address] Polychromasia LM Ql (Bld) Slight Normal [facility] Comment on above: Order Comment: Speci men Type: BLOOD SPECIMENOrdering Facility: [facility] Address: [address] Performed By: #### 5 7021-8 ####[facility] LABCLIA [id number] [address] LABCLIA [id number] [place] [address] RBC (Bld) [#/Vol] 2.30 10*6/uL Low 4.20-6.00 [facility] Comment on above: Order Comment: Speci men Type: BLOOD SPECIMENOrdering Facility: [facility] Address: [address] Performed By: #### 5 7021-8 ####[facility] LABCLIA [id number] [address] LABCLIA [id number] [place] [address] RED CELL MORPH Reviewed: see result s of individual morphologies Normal [facility] Comment on above: Order Comment: Speci men Type: BLOOD SPECIMENOrdering Facility: [facility] Address: [address] [place] [address] Performed By: #### 5 7021-8 ####[facility] LABCLIA [id number] [address] LABCLIA [id number] [place] [address] WBC (Bld) [#/Vol] 2.25 10*3/uL Low 3.70-11.00 [facility] Comment on above: Order Comment: Speci men Type: BLOOD SPECIMENOrdering Facility: [facility] Address: [address] [place] [address] Result Comment: Resu lts checked and verified.No clot detected. Performed By: #### 5 7021-8 ####[facility] LABCLIA [id number] [address] LABCLIA [id number] [place] [address] WBC Left Shift Ql (Bld) Present Normal [facility] Comment on above: Order Comment: Speci men Type: BLOOD SPECIMENOrdering Facility: [facility] Address: [address] [place] [address] Performed By: #### 5 7021-8 ####[facility] LABCLIA [id number] [address] LABCLIA [id number] [place] [address] CNPNon 09-11-2022 CNPN Normal [facility] Comprehensive metabolic 2000 panelon 09-11-2022 Albumin [Mass/Vol] 3.9 g/dL Normal 3.9-4.9 [facility] Comment on above: Order Comment: Speci men Type: BLOOD SPECIMENOrdering Facility: [facility] Address: [address] [place] [address] Performed By: #### 2 4323-8 ####[facility] LABCLIA [id number] [place] [address] ALP [Catalytic activity/Vol] 148 U/L High 38-113 [facility] Comment on above: Order Comment: Speci men Type: BLOOD SPECIMENOrdering Facility: [facility] Address: [address] [place] [address] Performed By: #### 2 4323-8 ####[facility] LABCLIA [id number] [place] [address] ALT [Catalytic activity/Vol] 48 U/L Normal 10-54 [facility] Comment on above: Order Comment: Speci men Type: BLOOD SPECIMENOrdering Facility: [facility] Address: [address] [place] [address] Performed By: #### 2 4323-8 ####[facility] LABCLIA [id number] [place] [address] Anion gap [Moles/Vol] 11 mmol/L Normal 9-18 [facility] Comment on above: Order Comment: Speci men Type: BLOOD SPECIMENOrdering Facility: [facility] Address: [address] [place] [address] Performed By: #### 2 4323-8 ####[facility] LABCLIA [id number] [place] [address] AST [Catalytic activity/Vol] 28 U/L Normal 14-40 [facility] Comment on above: Order Comment: Speci men Type: BLOOD SPECIMENOrdering Facility: [facility] Address: [address] [place] [address] Performed By: #### 2 4323-8 ####[facility] LABCLIA [id number] [place] [address] Bilirubin [Mass/Vol] 1.2 mg/dL Normal 0.2-1.3 [facility] Comment on above: Order Comment: Speci men Type: BLOOD SPECIMENOrdering Facility: [facility] Address: [address] [place] [address] Performed By: #### 2 4323-8 ####[facility] LABCLIA [id number] [place] [address] Calcium [Mass/Vol] 9.3 mg/dL Normal 8.5-10.2 [facility] Comment on above: Order Comment: Speci men Type: BLOOD SPECIMENOrdering Facility: [facility] Address: [address] [address] Performed By: #### 2 4323-8 ####[facility] LABCLIA [id number] [place] [address] Chloride [Moles/Vol] 97 mmol/L Normal 97-105 [facility] Comment on above: Order Comment: Speci men Type: BLOOD SPECIMENOrdering Facility: [facility] Address: [address] [place] [address] Performed By: #### 2 4323-8 ####[facility] LABCLIA [id number] [place] [address] CO2 [Moles/Vol] 32 mmol/L High 22-30 [facility] Comment on above: Order Comment: Speci men Type: BLOOD SPECIMENOrdering Facility: [facility] Address: [address] [place] [address] Performed By: #### 2 4323-8 ####[facility] LABCLIA [id number] [place] [address] Creatinine [Mass/Vol] 1.34 mg/dL High 0.73-1.22 [facility] Comment on above: Order Comment: Speci men Type: BLOOD SPECIMENOrdering Facility: [facility] Address: [address] [place] [address] Performed By: #### 2 4323-8 ####[facility] LABCLIA [id number] [place] [address] ESTIMATED GLOMERULAR FILTRATION RATE 53 mL/min/1.73m??? Low >=60 [facility] Comment on above: Order Comment: Speci men Type: BLOOD SPECIMENOrdering Facility: [facility] Address: [address] [place] [address] Result Comment: Faye mated Glomerular Filtration Rate (eGFR) is calculated using the 2020 CKD-EPI creatinine equation. This equation utilizes serum creatinine, sex, and age as parameters. The creatinine assay has traceable calibration to isotope dilution-mass spectrometry. Refer to KDIGO guidelines for clinical interpretation. In patients with unstable renal function, e.g. those with acute kidney injury, the eGFR may not accurately reflect actual GFR. Performed By: #### 2 4323-8 ####[facility] LABCLIA [id number] [place] [address] Glucose [Mass/Vol] 205 mg/dL High 74-99 [facility] Comment on above: Order Comment: Davi avendaño Type: BLOOD SPECIMENOrdering Facility: [facility] Address: [address] [place], [place] [address] Result Comment: The [place] [employer] (ADA) provides guidance for cutoff values for fasting glucose and random glucose. The ADA defines fasting as no caloric intake for at least 8 hours. Fasting plasma glucose results between 100 to 125 mg/dL indicate increased risk for diabetes (prediabetes).Fasting plasma glucose results greater than or equal to 126 mg/dL meet the criteria for diagnosis of diabetes. In the absence of unequivocal hyperglycemia, results should be confirmed by repeat testing. In a patient with classic symptoms of hyperglycemia or hyperglycemic crisis, random plasma glucose results greater than or equal to 200 mg/dL meet the criteria for diagnosis of diabetes.Reference: Standards of Medical Care in Diabetes 2016, [place] [employer]. Diabetes Care. 2016.39(Suppl 1). Performed By: #### 2 4323-8 ####[facility] LABCLIA [id number] [place] [address] Potassium [Moles/Vol] 3.5 mmol/L Low 3.7-5.1 [facility] Comment on above: Order Comment: Davi avendaño Type: BLOOD SPECIMENOrdering Facility: [facility] Address: [address] [place] [address] Performed By: #### 2 4323-8 ####[facility] LABCLIA [id number] [place] [address] Protein [Mass/Vol] 6.3 g/dL Normal 6.3-8.0 [facility] Comment on above: Order Comment: Davi avendaño Type: BLOOD SPECIMENOrdering Facility: [facility] Address: [address] [place], [place] [address] [address] Performed By: #### 2 4323-8 ####[facility] LABCLIA [id number] [place] [address] Sodium [Moles/Vol] 140 mmol/L Normal 136-144 [facility] Comment on above: Order Comment: Speci men Type: BLOOD SPECIMENOrdering Facility: [facility] Address: [address] [address] Performed By: #### 2 4323-8 ####[facility] LABCLIA [id number] [place] [address] Urea nitrogen [Mass/Vol] 25 mg/dL High 9-24 [facility] Comment on above: Order Comment: Speci men Type: BLOOD SPECIMENOrdering Facility: [facility] Address: [address] [place] [place] [address] Performed By: #### 2 4323-8 ####[facility] LABCLIA [id number] [place] [address] HEMOGRAM AND PLATELon 2022 Hematocrit (Bld) [Volume fraction] 22.3 % Critically low 42.0-54.0 [facility] Comment on above: Performed By: #### H H #### [facility] [address] [place] [address] Dr. Benito To Hemoglobin (Bld) [Mass/Vol] 7.3 g/dL Critically low 14.0-18.0 [facility] Comment on above: Performed By: #### H H #### [facility] [address] [address] [address] Benito To MCH (RBC) [Entitic mass] 32.0 pg Normal 25.9-34.0 [facility] Comment on above: Performed By: #### H H #### [facility] [address] [address] [address] Benito To MCHC (RBC) [Mass/Vol] 32.7 g/dL Normal 29.9-35.2 [facility] Comment on above: Performed By: #### H H #### [facility] [address] [address] [address] Benito To MCV (RBC) [Entitic vol] 97.8 fL Critically high 80.0-94.0 [facility] Comment on above: Performed By: #### H H #### [facility] [address] [address] [address] Benito To PLT 49 103/ul Critically low 150-450 [facility] Comment on above: Performed By: #### H H #### [facility] [address] [address] [address] Benito To RBC 2.28 106/ul Critically low 4.70-6.10 [facility] Comment on above: Performed By: #### H H #### [facility] [address] [place] [address] Dr. Benito To WBC 2.4 103/ul Critically low 4.0-11.0 [facility] Comment on above: Performed By: #### H H #### [facility] [address] [place] [address] Dr. Benito To TYPE AND SCREENon 09-11-2022 TYPE AND SCREEN Negative Normal [facility] Comment on above: Performed By: #### P RBC, TNS #### [facility] [address] [place] [address] Dr. Benito To HEMOGLOBIN AND HEMATOCRITon 09-05-2022 Hematocrit (Bld) [Volume fraction] 20.7 % Critically low 42.0-54.0 [facility] Comment on above: Performed By: #### T NS, PRBC #### [facility] [address] [place] [address] Dr. Benito To Hemoglobin (Bld) [Mass/Vol] 6.8 g/dL Critically low 14.0-18.0 [facility] Comment on above: Performed By: #### T NS, PRBC #### [facility] [address] [place] [address] Dr. Benito To TYPE AND SCREENon 09-05-2022 TYPE AND SCREEN Negative Normal [facility] Comment on above: Performed By: #### T NS, PRBC #### [facility] [address] [place], [place] [address] Dr. Benito To CBC W Auto Differential pane l (Bld)on 09-04-2022 Anisocytosis Ql (Bld) Present Normal [facility] Comment on above: Order Comment: Speci men Type: BLOOD SPECIMENOrdering Facility: [facility] Address: [address] [address] Performed By: #### 5 7021-8 ####[facility] LABCLIA [id number] [address] LABCLIA [id number] [place] [address] Basophils (Bld) [#/Vol] 0.09 10*3/uL Normal <0.11 [facility] Comment on above: Order Comment: Speci men Type: BLOOD SPECIMENOrdering Facility: [facility] Address: [address] Performed By: #### 5 7021-8 ####[facility] LABCLIA [id number] [address] LABCLIA [id number] [place] [address] Basophils/100 WBC (Bld) 3.0 % Normal [facility] Comment on above: Order Comment: Speci men Type: BLOOD SPECIMENOrdering Facility: [facility] Address: [address] Performed By: #### 5 7021-8 ####[facility] LABCLIA [id number] [address] LABCLIA [id number] [place] [address] Eosinophils (Bld) [#/Vol] 0.03 10*3/uL Normal <0.46 [facility] Comment on above: Order Comment: Speci men Type: BLOOD SPECIMENOrdering Facility: [facility] Address: [address] [place] [address] Performed By: #### 5 7021-8 ####[facility] LABCLIA [id number] [address] LABCLIA [id number] [place] [address] Eosinophils/100 WBC (Bld) 1.0 % Normal [facility] Comment on above: Order Comment: Speci men Type: BLOOD SPECIMENOrdering Facility: [facility] Address: [address] [place] [address] Performed By: #### 5 7021-8 ####[facility] LABCLIA [id number] [address] LABCLIA [id number] [place] [address] Erythrocyte distribution width (RBC) [Ratio] 15.7 % High 11.5-15.0 [facility] Comment on above: Order Comment: Speci men Type: BLOOD SPECIMENOrdering Facility: [facility] Address: [address] [place] [address] Performed By: #### 5 7021-8 ####[facility] LABCLIA [id number] [address] LABCLIA [id number] [place] [address] Hematocrit (Bld) [Volume fraction] 21.8 % Low 39.0-51.0 [facility] Comment on above: Order Comment: Speci men Type: BLOOD SPECIMENOrdering Facility: [facility] Address: [address] [place] [address] Performed By: #### 5 7021-8 ####[facility] LABCLIA [id number] [address] LABCLIA [id number] [place] [address] Hemoglobin (Bld) [Mass/Vol] 6.9 g/dL Low 13.0-17.0 [facility] Comment on above: Order Comment: Speci men Type: BLOOD SPECIMENOrdering Facility: [facility] Address: [address] [place] [address] Performed By: #### 5 7021-8 ####[facility] LABCLIA [id number] [address] LABCLIA [id number] [place] [address] Lymphocytes (Bld) [#/Vol] 1.08 10*3/uL Normal 1.00-4.00 [facility] Comment on above: Order Comment: Speci men Type: BLOOD SPECIMENOrdering Facility: [facility] Address: [address] [place] [address] Performed By: #### 5 7021-8 ####[facility] LABCLIA [id number] [address] LABCLIA [id number] [place] [address] Lymphocytes/100 WBC (Bld) 37.0 % Normal [facility] Comment on above: Order Comment: Speci men Type: BLOOD SPECIMENOrdering Facility: [facility] Address: [address] [place], [place] [address] Performed By: #### 5 7021-8 ####[facility] LABCLIA [id number] [address] LABCLIA [id number] [place] [address] MCH (RBC) [Entitic mass] 30.5 pg Normal 26.0-34.0 [facility] Comment on above: Order Comment: Speci men Type: BLOOD SPECIMENOrdering Facility: [facility] Address: [address] [place] [address] Performed By: #### 5 7021-8 ####[facility] LABCLIA [id number] [address] LABCLIA [id number] [place] [address] MCHC (RBC) [Mass/Vol] 31.7 g/dL Normal 30.5-36.0 [facility] Comment on above: Order Comment: Speci men Type: BLOOD SPECIMENOrdering Facility: [facility] Address: [address] [place] [address] Performed By: #### 5 7021-8 ####[facility] LABCLIA [id number] [address] LABCLIA [id number] [place] [address] MCV (RBC) [Entitic vol] 96.5 fL Normal 80.0-100.0 [facility] Comment on above: Order Comment: Speci men Type: BLOOD SPECIMENOrdering Facility: [facility] Address: [address] [place] [address] Performed By: #### 5 7021-8 ####[facility] LABCLIA [id number] [address] LABCLIA [id number] [place] [address] Metamyelocytes/100 WBC (Bld) 4.0 % Normal [facility] Comment on above: Order Comment: Speci men Type: BLOOD SPECIMENOrdering Facility: [facility] Address: [address] [place] [address] Performed By: #### 5 7021-8 ####[facility] LABCLIA [id number] [address] LABCLIA [id number] [place] [address] Monocytes (Bld) [#/Vol] 0.44 10*3/uL Normal <0.87 [facility] Comment on above: Order Comment: Speci men Type: BLOOD SPECIMENOrdering Facility: [facility] Address: [address] [place] [address] Performed By: #### 5 7021-8 ####[facility] LABCLIA [id number] [address] LABCLIA [id number] [place] [address] Monocytes/100 WBC (Bld) 15.0 % Normal [facility] Comment on above: Order Comment: Speci men Type: BLOOD SPECIMENOrdering Facility: [facility] Address: [address] [place] [address] Performed By: #### 5 7021-8 ####[facility] LABCLIA [id number] [address] LABCLIA [id number] [place] [address] Neutrophils (Bld) [#/Vol] 1.17 10*3/uL Low 1.45-7.50 [facility] Comment on above: Order Comment: Speci men Type: BLOOD SPECIMENOrdering Facility: [facility] Address: [address] [place] [address] Performed By: #### 5 7021-8 ####[facility] LABCLIA [id number] [address] LABCLIA [id number] [place] [address] Neutrophils/100 WBC (Bld) 40.0 % Normal [facility] Comment on above: Order Comment: Speci men Type: BLOOD SPECIMENOrdering Facility: [facility] Address: [address] [place], [place] [address] Performed By: #### 5 7021-8 ####[facility] LABCLIA [id number] [address] LABCLIA [id number] [place] [address] Nucleated RBC (Bld) [#/Vol] 0.06 10*3/uL High <0.01 [facility] Comment on above: Order Comment: Speci men Type: BLOOD SPECIMENOrdering Facility: [facility] Address: [address] [place] [address] Performed By: #### 5 7021-8 ####[facility] LABCLIA [id number] [address] LABCLIA [id number] [place] [address] Nucleated RBC/100 WBC (Bld) [Ratio] 2.0 /100 WBC Normal [facility] Comment on above: Order Comment: Speci men Type: BLOOD SPECIMENOrdering Facility: [facility] Address: [address] [place] [address] Performed By: #### 5 7021-8 ####[facility] LABCLIA [id number] [address] LABCLIA [id number] [place] [address] Ovalocytes LM Ql (Bld) Few Normal [facility] Comment on above: Order Comment: Speci men Type: BLOOD SPECIMENOrdering Facility: [facility] Address: [address] [place], [place] [address] Performed By: #### 5 7021-8 ####[facility] LABCLIA [id number] [address] LABCLIA [id number] [place] [address] Platelet mean volume (Bld) [Entitic vol] Normal [facility] Comment on above: Order Comment: Speci men Type: BLOOD SPECIMENOrdering Facility: [facility] Address: [address] [place] [address] Result Comment: Unab le to report Performed By: #### 5 7021-8 ####[facility] LABCLIA [id number] [place] [address] [facility] LABCLIA [id number] [place] [address] Platelets (Bld) [#/Vol] 55 10*3/uL Low 150-400 [facility] Comment on above: Order Comment: Speci men Type: BLOOD SPECIMENOrdering Facility: [facility] Address: [address] [place] [address] Performed By: #### 5 7021-8 ####[facility] LABCLIA [id number] [address] LABCLIA [id number] [place] [address] Platelets Estimate (Bld) [#/Vol] Decreased Normal [facility] Comment on above: Order Comment: Speci men Type: BLOOD SPECIMENOrdering Facility: [facility] Address: [address] [place] [address] Performed By: #### 5 7021-8 ####[facility] LABCLIA [id number] [address] LABCLIA [id number] [place] [address] Polychromasia LM Ql (Bld) Slight Normal [facility] Comment on above: Order Comment: Speci men Type: BLOOD SPECIMENOrdering Facility: [facility] Address: [address] [place] [address] Performed By: #### 5 7021-8 ####[facility] LABCLIA [id number] [address] LABCLIA [id number] [place] [address] RBC (Bld) [#/Vol] 2.26 10*6/uL Low 4.20-6.00 [facility] Comment on above: Order Comment: Speci men Type: BLOOD SPECIMENOrdering Facility: [facility] Address: [address] [address] Performed By: #### 5 7021-8 ####[facility] LABCLIA [id number] [address] LABCLIA [id number] [place] [address] RED CELL MORPH Reviewed: see result s of individual morphologies Normal [facility] Comment on above: Order Comment: Speci men Type: BLOOD SPECIMENOrdering Facility: [facility] Address: [address] [address] Performed By: #### 5 7021-8 ####[facility] LABCLIA [id number] [address] LABCLIA [id number] [place] [address] WBC (Bld) [#/Vol] 2.93 10*3/uL Low 3.70-11.00 [facility] Comment on above: Order Comment: Speci men Type: BLOOD SPECIMENOrdering Facility: [facility] Address: [address] Result Comment: Chec ked and Verified No clot detected. Performed By: #### 5 7021-8 ####[facility] LABCLIA [id number] [address] LABCLIA [id number] [place] [address] WBC Left Shift Ql (Bld) Present Normal [facility] Comment on above: Order Comment: Speci men Type: BLOOD SPECIMENOrdering Facility: [facility] Address: [address] [place] [address] Performed By: #### 5 7021-8 ####[facility] LABCLIA [id number] [facility] [id number] LABCLIA [id number] [place] [address] CNPNon 09-04-2022 CNPN Normal [facility] Comprehensive metabolic 2000 panelon 09-04-2022 Albumin [Mass/Vol] 3.9 g/dL Normal 3.9-4.9 [facility] Comment on above: Order Comment: Speci men Type: BLOOD SPECIMENOrdering Facility: [facility] Address: [address] [place] [address] Performed By: #### 2 4323-8 ####[facility] LABCLIA [id number] [place] [address] ALP [Catalytic activity/Vol] 157 U/L High 38-113 [facility] Comment on above: Order Comment: Speci men Type: BLOOD SPECIMENOrdering Facility: [facility] Address: [address] [place] [address] Performed By: #### 2 4323-8 ####[facility] LABCLIA [id number] [place] [address] ALT [Catalytic activity/Vol] 53 U/L Normal 10-54 [facility] Comment on above: Order Comment: Speci men Type: BLOOD SPECIMENOrdering Facility: [facility] Address: [address] [place] [address] Performed By: #### 2 4323-8 ####[facility] LABCLIA [id number] [place] [address] Anion gap [Moles/Vol] 11 mmol/L Normal 9-18 [facility] Comment on above: Order Comment: Speci men Type: BLOOD SPECIMENOrdering Facility: [facility] Address: [address] [address] Performed By: #### 2 4323-8 ####[facility] LABCLIA [id number] [place] [address] AST [Catalytic activity/Vol] 29 U/L Normal 14-40 [facility] Comment on above: Order Comment: Speci men Type: BLOOD SPECIMENOrdering Facility: [facility] Address: [address] [address] Performed By: #### 2 4323-8 ####[facility] LABCLIA [id number] [place] [address] Bilirubin [Mass/Vol] 1.2 mg/dL Normal 0.2-1.3 [facility] Comment on above: Order Comment: Speci men Type: BLOOD SPECIMENOrdering Facility: [facility] Address: [address] [address] Performed By: #### 2 4323-8 ####[facility] LABCLIA [id number] [place] [address] Calcium [Mass/Vol] 9.4 mg/dL Normal 8.5-10.2 [facility] Comment on above: Order Comment: Speci men Type: BLOOD SPECIMENOrdering Facility: [facility] Address: [address] [address] Performed By: #### 2 4323-8 ####[facility] LABCLIA [id number] [place] [address] Chloride [Moles/Vol] 97 mmol/L Normal 97-105 [facility] Comment on above: Order Comment: Speci men Type: BLOOD SPECIMENOrdering Facility: [facility] Address: [address] [address] Performed By: #### 2 4323-8 ####[facility] LABCLIA [id number] [place] [address] CO2 [Moles/Vol] 33 mmol/L High 22-30 [facility] Comment on above: Order Comment: Speci men Type: BLOOD SPECIMENOrdering Facility: [facility] Address: [address] [place] [address] Performed By: #### 2 4323-8 ####[facility] LABCLIA [id number] [place] [address] Creatinine [Mass/Vol] 1.40 mg/dL High 0.73-1.22 [facility] Comment on above: Order Comment: Speci men Type: BLOOD SPECIMENOrdering Facility: [facility] Address: [address] [place] [address] Performed By: #### 2 4323-8 ####[facility] LABCLIA [id number] [place] [address] ESTIMATED GLOMERULAR FILTRATION RATE 50 mL/min/1.73m??? Low >=60 [facility] Comment on above: Order Comment: Speci men Type: BLOOD SPECIMENOrdering Facility: [facility] Address: [address] [place] [address] Result Comment: Faye mated Glomerular Filtration Rate (eGFR) is calculated using the 2020 CKD-EPI creatinine equation. This equation utilizes serum creatinine, sex, and age as parameters. The creatinine assay has traceable calibration to isotope dilution-mass spectrometry. Refer to KDIGO guidelines for clinical interpretation. In patients with unstable renal function, e.g. those with acute kidney injury, the eGFR may not accurately reflect actual GFR. Performed By: #### 2 4323-8 ####[facility] LABCLIA [id number] [place] [address] Glucose [Mass/Vol] 152 mg/dL High 74-99 [facility] Comment on above: Order Comment: Speci men Type: BLOOD SPECIMENOrdering Facility: [facility] Address: [address] [place] [address] Result Comment: The [place] [employer] (ADA) provides guidance for cutoff values for fasting glucose and random glucose. The ADA defines fasting as no caloric intake for at least 8 hours. Fasting plasma glucose results between 100 to 125 mg/dL indicate increased risk for diabetes (prediabetes).Fasting plasma glucose results greater than or equal to 126 mg/dL meet the criteria for diagnosis of diabetes. In the absence of unequivocal hyperglycemia, results should be confirmed by repeat testing. In a patient with classic symptoms of hyperglycemia or hyperglycemic crisis, random plasma glucose results greater than or equal to 200 mg/dL meet the criteria for diagnosis of diabetes.Reference: Standards of Medical Care in Diabetes 2016, [employer] [place] [employer]. Diabetes Care. 2016.39(Suppl 1). Performed By: #### 2 4323-8 ####[facility] LABCLIA [id number] [place] [address] Potassium [Moles/Vol] 3.7 mmol/L Normal 3.7-5.1 [facility] Comment on above: Order Comment: Speci men Type: BLOOD SPECIMENOrdering Facility: [facility] Address: [address] [address] Performed By: #### 2 4323-8 ####[facility] LABCLIA [id number] [place] [address] Protein [Mass/Vol] 6.5 g/dL Normal 6.3-8.0 [facility] Comment on above: Order Comment: Speci men Type: BLOOD SPECIMENOrdering Facility: [facility] Address: [address] [address] Performed By: #### 2 4323-8 ####[facility] LABCLIA [id number] [place] [address] Sodium [Moles/Vol] 141 mmol/L Normal 136-144 [facility] Comment on above: Order Comment: Speci men Type: BLOOD SPECIMENOrdering Facility: [facility] Address: [address] [address] Performed By: #### 2 4323-8 ####[facility] LABCLIA [id number] [place] [address] Urea nitrogen [Mass/Vol] 22 mg/dL Normal 9-24 [facility] Comment on above: Order Comment: Speci men Type: BLOOD SPECIMENOrdering Facility: [facility] Address: [address] [place] [address] Performed By: #### 2 4323-8 ####[facility] LABCLIA [id number] [place] [address] CBC W Auto Differential pane l (Bld)on 08-28-2022 Basophils (Bld) [#/Vol] 10*3/uL Normal <0.11 [facility] Comment on above: Order Comment: Speci men Type: BLOOD SPECIMENOrdering Facility: [facility] Address: [address] [place] [address] Performed By: #### 5 7021-8 ####[facility] LABIA [id number] [place] [address] Basophils/100 WBC (Bld) 1.0 % Normal [facility] Comment on above: Order Comment: Speci men Type: BLOOD SPECIMENOrdering Facility: [facility] Address: [address] [place] [address] Performed By: #### 5 7021-8 ####[facility] LABCLIA [id number] [place] [address] Differential cell count method Nom (Bld) Auto Normal [facility] Comment on above: Order Comment: Speci men Type: BLOOD SPECIMENOrdering Facility: [facility] Address: [address] [place] [address] Performed By: #### 5 7021-8 ####[facility] LABCLIA [id number] [place] [address] Eosinophils (Bld) [#/Vol] 10*3/uL Normal <0.46 [facility] Comment on above: Order Comment: Speci men Type: BLOOD SPECIMENOrdering Facility: [facility] Address: [address] [place] [address] Performed By: #### 5 7021-8 ####[facility] LABCLIA [id number] [place] [address] Eosinophils/100 WBC (Bld) 0.5 % Normal [facility] Comment on above: Order Comment: Speci men Type: BLOOD SPECIMENOrdering Facility: [facility] Address: [address] [place] [address] Performed By: #### 5 7021-8 ####[facility] LABCLIA [id number] [place] [address] Erythrocyte distribution width (RBC) [Ratio] 15.9 % High 11.5-15.0 [facility] Comment on above: Order Comment: Speci men Type: BLOOD SPECIMENOrdering Facility: [facility] Address: [address] [place] [address] Performed By: #### 5 7021-8 ####[facility] LABCLIA [id number] [place] [address] Hematocrit (Bld) [Volume fraction] 25.6 % Low 39.0-51.0 [facility] Comment on above: Order Comment: Speci men Type: BLOOD SPECIMENOrdering Facility: [facility] Address: [address] [place] [address] Performed By: #### 5 7021-8 ####[facility] LABCLIA [id number] [place] [address] Hemoglobin (Bld) [Mass/Vol] 8.1 g/dL Low 13.0-17.0 [facility] Comment on above: Order Comment: Speci men Type: BLOOD SPECIMENOrdering Facility: [facility] Address: [address] [place] [address] Performed By: #### 5 7021-8 ####[facility] LABCLIA [id number] [place] [address] Immature granulocytes (Bld) [#/Vol] 0.03 10*3/uL Normal <0.10 [facility] Comment on above: Order Comment: Speci men Type: BLOOD SPECIMENOrdering Facility: [facility] Address: [address] [address] Performed By: #### 5 7021-8 ####[facility] LABCLIA [id number] [place] [address] Immature granulocytes/100 WBC (Bld) 1.5 % Normal [facility] Comment on above: Order Comment: Speci men Type: BLOOD SPECIMENOrdering Facility: [facility] Address: [address] [place] [address] Performed By: #### 5 7021-8 ####[facility] LABCLIA [id number] [place] [address] Lymphocytes (Bld) [#/Vol] 0.59 10*3/uL Low 1.00-4.00 [facility] Comment on above: Order Comment: Speci men Type: BLOOD SPECIMENOrdering Facility: [facility] Address: [address] [place] [address] Performed By: #### 5 7021-8 ####[facility] LABCLIA [id number] [place] [address] Lymphocytes/100 WBC (Bld) 28.8 % Normal [facility] Comment on above: Order Comment: Speci men Type: BLOOD SPECIMENOrdering Facility: [facility] Address: [address] [address] Performed By: #### 5 7021-8 ####[facility] LABCLIA [id number] [place] [address] MCH (RBC) [Entitic mass] 30.2 pg Normal 26.0-34.0 [facility] Comment on above: Order Comment: Speci men Type: BLOOD SPECIMENOrdering Facility: [facility] Address: [address] [place] [address] Performed By: #### 5 7021-8 ####[facility] LABCLIA [id number] [place] [address] MCHC (RBC) [Mass/Vol] 31.6 g/dL Normal 30.5-36.0 [facility] Comment on above: Order Comment: Speci men Type: BLOOD SPECIMENOrdering Facility: [facility] Address: [address] [place] [address] Performed By: #### 5 7021-8 ####[facility] LABIA [id number] [place] [address] MCV (RBC) [Entitic vol] 95.5 fL Normal 80.0-100.0 [facility] Comment on above: Order Comment: Speci men Type: BLOOD SPECIMENOrdering Facility: [facility] Address: [address] [place] [address] Performed By: #### 5 7021-8 ####[facility] LABIA [id number] [place] [address] Monocytes (Bld) [#/Vol] 0.26 10*3/uL Normal <0.87 [facility] Comment on above: Order Comment: Speci men Type: BLOOD SPECIMENOrdering Facility: [facility] Address: [address] [place] [address] Performed By: #### 5 7021-8 ####[facility] LABIA [id number] [place] [address] Monocytes/100 WBC (Bld) 12.7 % Normal [facility] Comment on above: Order Comment: Speci men Type: BLOOD SPECIMENOrdering Facility: [facility] Address: [address] [place] [address] Performed By: #### 5 7021-8 ####[facility] LABIA [id number] [place] [address] Neutrophils (Bld) [#/Vol] 1.14 10*3/uL Low 1.45-7.50 [facility] Comment on above: Order Comment: Speci men Type: BLOOD SPECIMENOrdering Facility: [facility] Address: [address] [place] [address] Performed By: #### 5 7021-8 ####[facility] LABCLIA [id number] [place] [address] Neutrophils/100 WBC (Bld) 55.5 % Normal [facility] Comment on above: Order Comment: Speci men Type: BLOOD SPECIMENOrdering Facility: [facility] Address: [address] [place] [address] Performed By: #### 5 7021-8 ####[facility] LABIA [id number] [place] [address] Nucleated RBC (Bld) [#/Vol] 10*3/uL Normal <0.01 [facility] Comment on above: Order Comment: Speci men Type: BLOOD SPECIMENOrdering Facility: [facility] Address: [address] [place] [address] Performed By: #### 5 7021-8 ####[facility] LABIA [id number] [place] [address] Nucleated RBC/100 WBC (Bld) [Ratio] 0.0 /100 WBC Normal [facility] Comment on above: Order Comment: Speci men Type: BLOOD SPECIMENOrdering Facility: [facility] Address: [address] [place] [address] Performed By: #### 5 7021-8 ####[facility] LABIA [id number] [place] [address] Platelet mean volume (Bld) [Entitic vol] 14.7 fL High 9.0-12.7 [facility] Comment on above: Order Comment: Speci men Type: BLOOD SPECIMENOrdering Facility: [facility] Address: [address] [place] [address] Performed By: #### 5 7021-8 ####[facility] LABCLIA [id number] [place] [address] Platelets (Bld) [#/Vol] 43 10*3/uL Low 150-400 [facility] Comment on above: Order Comment: Speci men Type: BLOOD SPECIMENOrdering Facility: [facility] Address: [address] [place] [address] Result Comment: Resu lts checked and verified.No clot detected. Performed By: #### 5 7021-8 ####[facility] LABCLIA [id number] [place] [address] RBC (Bld) [#/Vol] 2.68 10*6/uL Low 4.20-6.00 [facility] Comment on above: Order Comment: Speci men Type: BLOOD SPECIMENOrdering Facility: [facility] Address: [address] [place] [address] Performed By: #### 5 7021-8 ####[facility] LABCLIA [id number] [place] [address] WBC (Bld) [#/Vol] 2.05 10*3/uL Low 3.70-11.00 [facility] Comment on above: Order Comment: Speci men Type: BLOOD SPECIMENOrdering Facility: [facility] Address: [address] [place] [address] Performed By: #### 5 7021-8 ####[facility] LABCLIA [id number] [place] [address] CNOVSPon 08-28-2022 CNOVSP Normal [facility] Comprehensive metabolic 2000 panelon 08-28-2022 Albumin [Mass/Vol] 3.8 g/dL Low 3.9-4.9 [facility] Comment on above: Order Comment: Speci men Type: BLOOD SPECIMENOrdering Facility: [facility] Address: [address] [place] [address] Performed By: #### 2 4323-8 ####[facility] LABCLIA [id number] [place] [address] ALP [Catalytic activity/Vol] 158 U/L High 38-113 [facility] Comment on above: Order Comment: Speci men Type: BLOOD SPECIMENOrdering Facility: [facility] Address: [address] [address] Performed By: #### 2 4323-8 ####[facility] LABCLIA [id number] [place] [address] ALT [Catalytic activity/Vol] 53 U/L Normal 10-54 [facility] Comment on above: Order Comment: Speci men Type: BLOOD SPECIMENOrdering Facility: [facility] Address: [address] [place] [address] Performed By: #### 2 4323-8 ####[facility] LABCLIA [id number] [place] [address] Anion gap [Moles/Vol] 9 mmol/L Normal 9-18 [facility] Comment on above: Order Comment: Speci men Type: BLOOD SPECIMENOrdering Facility: [facility] Address: [address] [place] [address] Performed By: #### 2 4323-8 ####[facility] LABCLIA [id number] [place] [address] AST [Catalytic activity/Vol] 27 U/L Normal 14-40 [facility] Comment on above: Order Comment: Speci men Type: BLOOD SPECIMENOrdering Facility: [facility] Address: [address] [place] [address] Performed By: #### 2 4323-8 ####[facility] LABCLIA [id number] [place] [address] Bilirubin [Mass/Vol] 1.0 mg/dL Normal 0.2-1.3 [facility] Comment on above: Order Comment: Speci men Type: BLOOD SPECIMENOrdering Facility: [facility] Address: [address] [place] [address] Performed By: #### 2 4323-8 ####[facility] LABCLIA [id number] [place] [address] Calcium [Mass/Vol] 9.1 mg/dL Normal 8.5-10.2 [facility] Comment on above: Order Comment: Speci men Type: BLOOD SPECIMENOrdering Facility: [facility] Address: [address] [place] [address] Performed By: #### 2 4323-8 ####[facility] LABCLIA [id number] [place] [address] Chloride [Moles/Vol] 102 mmol/L Normal 97-105 [facility] Comment on above: Order Comment: Speci men Type: BLOOD SPECIMENOrdering Facility: [facility] Address: [address] [place] [address] Performed By: #### 2 4323-8 ####[facility] LABCLIA [id number] [place] [address] CO2 [Moles/Vol] 34 mmol/L High 22-30 [facility] Comment on above: Order Comment: Speci men Type: BLOOD SPECIMENOrdering Facility: [facility] Address: [address] [place] [address] Performed By: #### 2 4323-8 ####[facility] LABCLIA [id number] [place] [address] Creatinine [Mass/Vol] 1.47 mg/dL High 0.73-1.22 [facility] Comment on above: Order Comment: Speci men Type: BLOOD SPECIMENOrdering Facility: [facility] Address: [address] [place] [address] Performed By: #### 2 4323-8 ####[facility] LABCLIA [id number] [place] [address] ESTIMATED GLOMERULAR FILTRATION RATE 47 mL/min/1.73m??? Low >=60 [facility] Comment on above: Order Comment: Davi avendaño Type: BLOOD SPECIMENOrdering Facility: [facility] Address: [address] [id number] Result Comment: Faye mated Glomerular Filtration Rate (eGFR) is calculated using the 2020 CKD-EPI creatinine equation. This equation utilizes serum creatinine, sex, and age as parameters. The creatinine assay has traceable calibration to isotope dilution-mass spectrometry. Refer to KDIGO guidelines for clinical interpretation. In patients with unstable renal function, e.g. those with acute kidney injury, the eGFR may not accurately reflect actual GFR. Performed By: #### 2 4323-8 ####[facility] LABIA [id number] [place] [address] Glucose [Mass/Vol] 126 mg/dL High 74-99 [facility] Comment on above: Order Comment: Davi avendaño Type: BLOOD SPECIMENOrdering Facility: [facility] Address: [address] [address] Result Comment: The [place] [employer] (ADA) provides guidance for cutoff values for fasting glucose and random glucose. The ADA defines fasting as no caloric intake for at least 8 hours. Fasting plasma glucose results between 100 to 125 mg/dL indicate increased risk for diabetes (prediabetes).Fasting plasma glucose results greater than or equal to 126 mg/dL meet the criteria for diagnosis of diabetes. In the absence of unequivocal hyperglycemia, results should be confirmed by repeat testing. In a patient with classic symptoms of hyperglycemia or hyperglycemic crisis, random plasma glucose results greater than or equal to 200 mg/dL meet the criteria for diagnosis of diabetes.Reference: Standards of Medical Care in Diabetes 2016, [place] [employer]. Diabetes Care. 2016.39(Suppl 1). Performed By: #### 2 4323-8 ####[facility] LABIA [id number] [place] [address] Potassium [Moles/Vol] 3.5 mmol/L Low 3.7-5.1 [facility] Comment on above: Order Comment: Davi avendaño Type: BLOOD SPECIMENOrdering Facility: [facility] Address: [address] [place] [address] Performed By: #### 2 4323-8 ####[facility] LABCLIA [id number] [place] [address] Protein [Mass/Vol] 6.5 g/dL Normal 6.3-8.0 [facility] Comment on above: Order Comment: Speci men Type: BLOOD SPECIMENOrdering Facility: [facility] Address: [address] [place] [address] Performed By: #### 2 4323-8 ####[facility] LABCLIA [id number] [place] [address] Sodium [Moles/Vol] 145 mmol/L High 136-144 [facility] Comment on above: Order Comment: Speci men Type: BLOOD SPECIMENOrdering Facility: [facility] Address: [address] [place] [address] Performed By: #### 2 4323-8 ####[facility] LABCLIA [id number] [place] [address] Urea nitrogen [Mass/Vol] 23 mg/dL Normal 9-24 [facility] Comment on above: Order Comment: Speci men Type: BLOOD SPECIMENOrdering Facility: [facility] Address: [address] [place] [address] Performed By: #### 2 4323-8 ####[facility] LABCLIA [id number] [place] [address] CNPNon 08-26-2022 CNPN Normal [facility] PRBC LEUKOREDUCEDon 08-24-19 23 ABO and Rh group Nom (Bld) Cross Match Result Compatible Unit Blood Type O Pos Unit Number [id number] Status Information Transfused Product ID Red Blood Cells Product Code [id number] Cross Match Result Compatible Unit Blood Type O Pos Unit Number [id number] Status Information Transfused Product ID Red Blood Cells Product Code Q0220Z87 Normal [facility] Comment on above: Performed By: #### T NS, PRBC #### [facility] [address] [place] [address] Dr. Benito To ABO and Rh group Nom (Bld) Cross Match Result Compatible Unit Blood Type A Pos Unit Number [id number] Status Information Transfused Product ID Red Blood Cells Product Code F3494P05 Cross Match Result Compatible Unit Blood Type A Pos Unit Number [id number] Status Information Transfused Product ID Red Blood Cells Product Code W0049P37 Normal [facility] Comment on above: Performed By: #### P RBC, TNS #### [facility] [address] [address] [address] Benito To CNPNon 08-22-2022 CNPN Normal [facility] CBC W Auto Differential pane l (Bld)on 08-21-2022 Anisocytosis Ql (Bld) Present Normal [facility] Comment on above: Order Comment: Speci men Type: BLOOD SPECIMENOrdering Facility: [facility] Address: [address] [place] [address] Performed By: #### 5 7021-8 ####[facility] LABCLIA [id number] [address] LABCLIA [id number] [place] [address] Basophils (Bld) [#/Vol] 0.06 10*3/uL Normal <0.11 [facility] Comment on above: Order Comment: Speci men Type: BLOOD SPECIMENOrdering Facility: [facility] Address: [address] [place] [address] Performed By: #### 5 7021-8 ####[facility] LABCLIA [id number] [address] LABCLIA [id number] [place] [address] Basophils/100 WBC (Bld) 3.0 % Normal [facility] Comment on above: Order Comment: Speci men Type: BLOOD SPECIMENOrdering Facility: [facility] Address: [address] [place] [address] Performed By: #### 5 7021-8 ####[facility] LABCLIA [id number] [address] [id number] [facility] LABCLIA [id number] [place] [address] DYSPLASTIC PMNS Occasional Normal [facility] Comment on above: Order Comment: Speci men Type: BLOOD SPECIMENOrdering Facility: [facility] Address: [address] [place], [place] [address] Performed By: #### 5 7021-8 ####[facility] LABCLIA [id number] [address] LABCLIA [id number] [place] [address] Eosinophils (Bld) [#/Vol] 0.02 10*3/uL Normal <0.46 [facility] Comment on above: Order Comment: Speci men Type: BLOOD SPECIMENOrdering Facility: [facility] Address: [address] [place] [address] Performed By: #### 5 7021-8 ####[facility] LABCLIA [id number] [address] LABCLIA [id number] [place] [address] Eosinophils/100 WBC (Bld) 1.0 % Normal [facility] Comment on above: Order Comment: Speci men Type: BLOOD SPECIMENOrdering Facility: [facility] Address: [address] [place] [address] Performed By: #### 5 7021-8 ####[facility] LABCLIA [id number] [address] [id number] [facility] LABCLIA [id number] [place] [address] Erythrocyte distribution width (RBC) [Ratio] 15.9 % High 11.5-15.0 [facility] Comment on above: Order Comment: Speci men Type: BLOOD SPECIMENOrdering Facility: [facility] Address: [address] [place] [address] Performed By: #### 5 7021-8 ####[facility] LABCLIA [id number] [address] LABCLIA [id number] [place] [address] Hematocrit (Bld) [Volume fraction] 24.2 % Low 39.0-51.0 [facility] Comment on above: Order Comment: Speci men Type: BLOOD SPECIMENOrdering Facility: [facility] Address: [address] [place] [address] Performed By: #### 5 7021-8 ####[facility] LABCLIA [id number] [address] LABCLIA [id number] [place] [address] Hemoglobin (Bld) [Mass/Vol] 7.7 g/dL Low 13.0-17.0 [facility] Comment on above: Order Comment: Speci men Type: BLOOD SPECIMENOrdering Facility: [facility] Address: [address] [place] [address] Performed By: #### 5 7021-8 ####[facility] LABCLIA [id number] [address] LABCLIA [id number] [place] [address] HYPOGRANULATED PMNS Occasional Normal [facility] Comment on above: Order Comment: Speci men Type: BLOOD SPECIMENOrdering Facility: [facility] Address: [address] [place], [place] [address] Performed By: #### 5 7021-8 ####[facility] LABCLIA [id number] [address] LABCLIA [id number] [place] [address] Lymphocytes (Bld) [#/Vol] 0.55 10*3/uL Low 1.00-4.00 [facility] Comment on above: Order Comment: Speci men Type: BLOOD SPECIMENOrdering Facility: [facility] Address: [address] [place] [address] Performed By: #### 5 7021-8 ####[facility] LABCLIA [id number] [address] LABCLIA [id number] [place] [address] Lymphocytes/100 WBC (Bld) 28.0 % Normal [facility] Comment on above: Order Comment: Speci men Type: BLOOD SPECIMENOrdering Facility: [facility] Address: [address] [place] [address] Performed By: #### 5 7021-8 ####[facility] LABCLIA [id number] [address] LABCLIA [id number] [place] [address] MCH (RBC) [Entitic mass] 30.4 pg Normal 26.0-34.0 [facility] Comment on above: Order Comment: Speci men Type: BLOOD SPECIMENOrdering Facility: [facility] Address: [address] [place], [place] [address] Performed By: #### 5 7021-8 ####[facility] LABCLIA [id number] [address] LABCLIA [id number] [place] [address] MCHC (RBC) [Mass/Vol] 31.8 g/dL Normal 30.5-36.0 [facility] Comment on above: Order Comment: Speci men Type: BLOOD SPECIMENOrdering Facility: [facility] Address: [address] [place] [address] Performed By: #### 5 7021-8 ####[facility] LABCLIA [id number] [address] LABCLIA [id number] [place] [address] MCV (RBC) [Entitic vol] 95.7 fL Normal 80.0-100.0 [facility] Comment on above: Order Comment: Speci men Type: BLOOD SPECIMENOrdering Facility: [facility] Address: [address] [place] [address] Performed By: #### 5 7021-8 ####[facility] LABCLIA [id number] [address] LABCLIA [id number] [place] [address] Metamyelocytes/100 WBC (Bld) 2.0 % Normal [facility] Comment on above: Order Comment: Speci men Type: BLOOD SPECIMENOrdering Facility: [facility] Address: [address] [place] [address] Performed By: #### 5 7021-8 ####[facility] LABCLIA [id number] [address] LABCLIA [id number] [place] [address] Monocytes (Bld) [#/Vol] 0.24 10*3/uL Normal <0.87 [facility] Comment on above: Order Comment: Speci men Type: BLOOD SPECIMENOrdering Facility: [facility] Address: [address] [place] [address] Performed By: #### 5 7021-8 ####[facility] LABCLIA [id number] [place] [id number] [place] [address] LABCLIA [id number] [place] [address] Monocytes/100 WBC (Bld) 12.0 % Normal [facility] Comment on above: Order Comment: Speci men Type: BLOOD SPECIMENOrdering Facility: [facility] Address: [address] [place] [address] Performed By: #### 5 7021-8 ####[facility] LABCLIA [id number] [address] LABCLIA [id number] [place] [address] MYELO% 3.0 % Normal [facility] Comment on above: Order Comment: Speci men Type: BLOOD SPECIMENOrdering Facility: [facility] Address: [address] [place] [address] Performed By: #### 5 7021-8 ####[facility] LABCLIA [id number] [address] LABCLIA [id number] [place] [address] Neutrophils (Bld) [#/Vol] 1.01 10*3/uL Low 1.45-7.50 [facility] Comment on above: Order Comment: Speci men Type: BLOOD SPECIMENOrdering Facility: [facility] Address: [address] [place] [address] Performed By: #### 5 7021-8 ####[facility] LABCLIA [id number] [address] LABCLIA [id number] [place] [address] Neutrophils/100 WBC (Bld) 51.0 % Normal [facility] Comment on above: Order Comment: Speci men Type: BLOOD SPECIMENOrdering Facility: [facility] Address: [address] [place] [address] Performed By: #### 5 7021-8 ####[facility] LABCLIA [id number] [address] LABCLIA [id number] [place] [address] Nucleated RBC (Bld) [#/Vol] 10*3/uL Normal <0.01 [facility] Comment on above: Order Comment: Speci men Type: BLOOD SPECIMENOrdering Facility: [facility] Address: [address] [place] [address] Performed By: #### 5 7021-8 ####[facility] LABCLIA [id number] [address] LABCLIA [id number] [place] [address] Nucleated RBC/100 WBC (Bld) [Ratio] 0.0 /100 WBC Normal [facility] Comment on above: Order Comment: Speci men Type: BLOOD SPECIMENOrdering Facility: [facility] Address: [address] [place] [address] Performed By: #### 5 7021-8 ####[facility] LABCLIA [id number] [address] LABCLIA [id number] [place] [address] Ovalocytes LM Ql (Bld) Few Normal [facility] Comment on above: Order Comment: Speci men Type: BLOOD SPECIMENOrdering Facility: [facility] Address: [address] [place] [address] Performed By: #### 5 7021-8 ####[facility] LABCLIA [id number] [place] [id number] [facility] LABCLIA [id number] [place] [address] Platelet mean volume (Bld) [Entitic vol] Normal [facility] Comment on above: Order Comment: Speci men Type: BLOOD SPECIMENOrdering Facility: [facility] Address: [address] [place] [address] Result Comment: Payton le to report Performed By: #### 5 7021-8 ####[facility] LABCLIA [id number] [address] LABCLIA [id number] [place] [address] Platelets (Bld) [#/Vol] 50 10*3/uL Low 150-400 [facility] Comment on above: Order Comment: Speci men Type: BLOOD SPECIMENOrdering Facility: [facility] Address: [address] [place] [address] Result Comment: Resu lt rechecked. No clot detected. Performed By: #### 5 7021-8 ####[facility] LABCLIA [id number] [address] LABCLIA [id number] [place] [address] Polychromasia LM Ql (Bld) Slight Normal [facility] Comment on above: Order Comment: Speci men Type: BLOOD SPECIMENOrdering Facility: [facility] Address: [address] [place] [address] Performed By: #### 5 7021-8 ####[facility] LABCLIA [id number] [address] LABCLIA [id number] [place] [address] RBC (Bld) [#/Vol] 2.53 10*6/uL Low 4.20-6.00 [facility] Comment on above: Order Comment: Speci men Type: BLOOD SPECIMENOrdering Facility: [facility] Address: [address] [place] [address] Performed By: #### 5 7021-8 ####[facility] LABCLIA [id number] [address] LABCLIA [id number] [place] [address] RED CELL MORPH Reviewed: see result s of individual morphologies Normal [facility] Comment on above: Order Comment: Speci men Type: BLOOD SPECIMENOrdering Facility: [facility] Address: [address] [place] [address] Performed By: #### 5 7021-8 ####[facility] LABCLIA [id number] [address] LABCLIA [id number] [place] [address] WBC (Bld) [#/Vol] 2.00 10*3/uL Low 3.70-11.00 [facility] Comment on above: Order Comment: Speci men Type: BLOOD SPECIMENOrdering Facility: [facility] Address: [address] [place] [address] Result Comment: Resu lt rechecked. No clot detected. Performed By: #### 5 7021-8 ####[facility] LABCLIA [id number] [address] LABCLIA [id number] [place] [address] WBC Left Shift Ql (Bld) Present Normal [facility] Comment on above: Order Comment: Speci men Type: BLOOD SPECIMENOrdering Facility: [facility] Address: [address] [place], [place] [address] Performed By: #### 5 7021-8 ####[facility] LABCLIA [id number] [address] LABCLIA [id number] [place] [address] CNOVSPon 08-21-2022 CNOVSP Normal [facility] CNPNon 08-21-2022 CNPN Normal [facility] Comprehensive metabolic 2000 panelon 08-21-2022 Albumin [Mass/Vol] 4.0 g/dL Normal 3.9-4.9 [facility] Comment on above: Order Comment: Speci men Type: BLOOD SPECIMENOrdering Facility: [facility] Address: [address] [place] [address] Performed By: #### 2 4323-8 ####[facility] LABCLIA [id number] [place] [address] ALP [Catalytic activity/Vol] 146 U/L High 38-113 [facility] Comment on above: Order Comment: Speci men Type: BLOOD SPECIMENOrdering Facility: [facility] Address: [address] [place] [address] Performed By: #### 2 4323-8 ####[facility] LABCLIA [id number] [place] [address] ALT [Catalytic activity/Vol] 46 U/L Normal 10-54 [facility] Comment on above: Order Comment: Speci men Type: BLOOD SPECIMENOrdering Facility: [facility] Address: [address] [place] [address] Performed By: #### 2 4323-8 ####[facility] LABCLIA [id number] [place] [address] Anion gap [Moles/Vol] 12 mmol/L Normal 9-18 [facility] Comment on above: Order Comment: Speci men Type: BLOOD SPECIMENOrdering Facility: [facility] Address: [address] [place] [address] Performed By: #### 2 4323-8 ####[facility] LABCLIA [id number] [place] [address] AST [Catalytic activity/Vol] 21 U/L Normal 14-40 [facility] Comment on above: Order Comment: Speci men Type: BLOOD SPECIMENOrdering Facility: [facility] Address: [address] [place] [address] Performed By: #### 2 4323-8 ####[facility] LABCLIA [id number] [place] [address] Bilirubin [Mass/Vol] 1.3 mg/dL Normal 0.2-1.3 [facility] Comment on above: Order Comment: Speci men Type: BLOOD SPECIMENOrdering Facility: [facility] Address: [address] [place] [address] Performed By: #### 2 4323-8 ####[facility] LABCLIA [id number] [place] [address] Calcium [Mass/Vol] 8.7 mg/dL Normal 8.5-10.2 [facility] Comment on above: Order Comment: Speci men Type: BLOOD SPECIMENOrdering Facility: [facility] Address: [address] [place] [address] Performed By: #### 2 4323-8 ####[facility] LABCLIA [id number] [place] [address] Chloride [Moles/Vol] 99 mmol/L Normal 97-105 [facility] Comment on above: Order Comment: Speci men Type: BLOOD SPECIMENOrdering Facility: [facility] Address: [address] [place] [address] Performed By: #### 2 4323-8 ####[facility] LABCLIA [id number] [place] [address] CO2 [Moles/Vol] 32 mmol/L High 22-30 [facility] Comment on above: Order Comment: Speci men Type: BLOOD SPECIMENOrdering Facility: [facility] Address: [address] [place] [address] Performed By: #### 2 4323-8 ####[facility] LABCLIA [id number] [place] [address] Creatinine [Mass/Vol] 1.65 mg/dL High 0.73-1.22 [facility] Comment on above: Order Comment: Davi avendaño Type: BLOOD SPECIMENOrdering Facility: [facility] Address: [address] [place] [address] Performed By: #### 2 4323-8 ####[facility] LABCLIA [id number] [place] [address] ESTIMATED GLOMERULAR FILTRATION RATE 41 mL/min/1.73m??? Low >=60 [facility] Comment on above: Order Comment: Davi avendaño Type: BLOOD SPECIMENOrdering Facility: [facility] Address: [address] [place] [address] Result Comment: Faye mated Glomerular Filtration Rate (eGFR) is calculated using the 2020 CKD-EPI creatinine equation. This equation utilizes serum creatinine, sex, and age as parameters. The creatinine assay has traceable calibration to isotope dilution-mass spectrometry. Refer to KDIGO guidelines for clinical interpretation. In patients with unstable renal function, e.g. those with acute kidney injury, the eGFR may not accurately reflect actual GFR. Performed By: #### 2 4323-8 ####[facility] LABCLIA [id number] [place] [address] Glucose [Mass/Vol] 177 mg/dL High 74-99 [facility] Comment on above: Order Comment: Davi avendaño Type: BLOOD SPECIMENOrdering Facility: [facility] Address: [address] [place] [address] Result Comment: The [place] [employer] (ADA) provides guidance for cutoff values for fasting glucose and random glucose. The ADA defines fasting as no caloric intake for at least 8 hours. Fasting plasma glucose results between 100 to 125 mg/dL indicate increased risk for diabetes (prediabetes).Fasting plasma glucose results greater than or equal to 126 mg/dL meet the criteria for diagnosis of diabetes. In the absence of unequivocal hyperglycemia, results should be confirmed by repeat testing. In a patient with classic symptoms of hyperglycemia or hyperglycemic crisis, random plasma glucose results greater than or equal to 200 mg/dL meet the criteria for diagnosis of diabetes.Reference: Standards of Medical Care in Diabetes 2016, [employer] [place] [employer]. Diabetes Care. 2016.39(Suppl 1). Performed By: #### 2 4323-8 ####[facility] LABCLIA [id number] [place] [address] Potassium [Moles/Vol] 3.5 mmol/L Low 3.7-5.1 [facility] Comment on above: Order Comment: Speci men Type: BLOOD SPECIMENOrdering Facility: [facility] Address: [address] [place] [address] Performed By: #### 2 4323-8 ####[facility] LABCLIA [id number] [place] [address] Protein [Mass/Vol] 6.5 g/dL Normal 6.3-8.0 [facility] Comment on above: Order Comment: Speci men Type: BLOOD SPECIMENOrdering Facility: [facility] Address: [address] [place] [address] Performed By: #### 2 4323-8 ####[facility] LABCLIA [id number] [place] [address] Sodium [Moles/Vol] 143 mmol/L Normal 136-144 [facility] Comment on above: Order Comment: Speci men Type: BLOOD SPECIMENOrdering Facility: [facility] Address: [address] [place] [address] Performed By: #### 2 4323-8 ####[facility] LABCLIA [id number] [place] [address] Urea nitrogen [Mass/Vol] 28 mg/dL High 9-24 [facility] Comment on above: Order Comment: Speci men Type: BLOOD SPECIMENOrdering Facility: [facility] Address: [address] [place] [address] Performed By: #### 2 4323-8 ####[facility] LABCLIA [id number] [place] [address] HEMOGRAM AND PLATELon 01-25- 2023 Hematocrit (Bld) [Volume fraction] 26.2 % Critically low 42.0-54.0 [facility] Comment on above: Performed By: #### T NS, PRBC #### [facility] [address] [place] [address] Dr. Benito To Hemoglobin (Bld) [Mass/Vol] 7.7 g/dL Critically low 14.0-18.0 [facility] Comment on above: Performed By: #### T NS, PRBC #### [facility] [address] [place] [address] Dr. Benito To MCH (RBC) [Entitic mass] 30.2 pg Normal 25.9-34.0 [facility] Comment on above: Performed By: #### T NS, PRBC #### [facility] [address] [place] [address] Dr. Benito To MCHC (RBC) [Mass/Vol] 29.4 g/dL Critically low 29.9-35.2 [facility] Comment on above: Performed By: #### T NS, PRBC #### [facility] [address] [place] [address] Dr. Benito To MCV (RBC) [Entitic vol] 102.7 fL Critically high 80.0-94.0 [facility] Comment on above: Performed By: #### T NS, PRBC #### [facility] [address] [place] [address] Dr. Benito To PLT 44 103/ul Critically low 150-450 [facility] Comment on above: Performed By: #### T NS, PRBC #### [facility] [address] [place] [address] Dr. Benito To RBC 2.55 106/ul Critically low 4.70-6.10 [facility] Comment on above: Performed By: #### T NS, PRBC #### [facility] [address] [place] [address] Dr. Benito To WBC 1.8 103/ul Critically low 4.0-11.0 [facility] Comment on above: Performed By: #### T ZEHRA, PRBC #### [facility] [address] [place], [place] [address] Dr. Benito To TYPE AND SCREENon 08-21-2022 TYPE AND SCREEN Negative Normal [facility] Comment on above: Performed By: #### T NS, PRBC #### [facility] [address] [place] [address] Dr. Benito To CBC W Auto Differential pane l (Bld)on 08-14-2022 Anisocytosis Ql (Bld) Present Normal [facility] Comment on above: Order Comment: Speci men Type: BLOOD SPECIMENOrdering Facility: [facility] Address: [address] [place] [address] Performed By: #### 5 7021-8 ####[facility] LABCLIA [id number] [address] LABCLIA [id number] [place] [address] Basophils (Bld) [#/Vol] 0.06 10*3/uL Normal <0.11 [facility] Comment on above: Order Comment: Speci men Type: BLOOD SPECIMENOrdering Facility: [facility] Address: [address] [place] [address] Performed By: #### 5 7021-8 ####[facility] LABCLIA [id number] [address] LABCLIA [id number] [place] [address] Basophils/100 WBC (Bld) 3.0 % Normal [facility] Comment on above: Order Comment: Speci men Type: BLOOD SPECIMENOrdering Facility: [facility] Address: [address] [place] [address] Performed By: #### 5 7021-8 ####[facility] LABCLIA [id number] [address] LABCLIA [id number] [place] [address] Differential cell count method Nom (Bld) Manual Normal [facility] Comment on above: Order Comment: Speci men Type: BLOOD SPECIMENOrdering Facility: [facility] Address: [address] [place] [address] Performed By: #### 5 7021-8 ####[facility] LABCLIA [id number] [address] LABCLIA [id number] [place] [address] Eosinophils (Bld) [#/Vol] 0.04 10*3/uL Normal <0.46 [facility] Comment on above: Order Comment: Speci men Type: BLOOD SPECIMENOrdering Facility: [facility] Address: [address] [place] [address] Performed By: #### 5 7021-8 ####[facility] LABCLIA [id number] [address] LABCLIA [id number] [place] [address] Eosinophils/100 WBC (Bld) 2.0 % Normal [facility] Comment on above: Order Comment: Speci men Type: BLOOD SPECIMENOrdering Facility: [facility] Address: [address] [place], [place] [address] Performed By: #### 5 7021-8 ####[facility] LABCLIA [id number] [address] LABCLIA [id number] [place] [address] Erythrocyte distribution width (RBC) [Ratio] 16.4 % High 11.5-15.0 [facility] Comment on above: Order Comment: Speci men Type: BLOOD SPECIMENOrdering Facility: [facility] Address: [address] [place], [place] [address] Performed By: #### 5 7021-8 ####[facility] LABCLIA [id number] [address] LABCLIA [id number] [place] [address] Hematocrit (Bld) [Volume fraction] 23.6 % Low 39.0-51.0 [facility] Comment on above: Order Comment: Speci men Type: BLOOD SPECIMENOrdering Facility: [facility] Address: [address] [place] [address] Performed By: #### 5 7021-8 ####[facility] LABCLIA [id number] [address] LABCLIA [id number] [place] [address] Hemoglobin (Bld) [Mass/Vol] 7.3 g/dL Low 13.0-17.0 [facility] Comment on above: Order Comment: Speci men Type: BLOOD SPECIMENOrdering Facility: [facility] Address: [address] [place] [address] Performed By: #### 5 7021-8 ####[facility] LABCLIA [id number] [address] LABCLIA [id number] [place] [address] Lymphocytes (Bld) [#/Vol] 1.10 10*3/uL Normal 1.00-4.00 [facility] Comment on above: Order Comment: Speci men Type: BLOOD SPECIMENOrdering Facility: [facility] Address: [address] [place], [place] [address] Performed By: #### 5 7021-8 ####[facility] LABCLIA [id number] [address] LABCLIA [id number] [place] [address] Lymphocytes/100 WBC (Bld) 56.0 % Normal [facility] Comment on above: Order Comment: Speci men Type: BLOOD SPECIMENOrdering Facility: [facility] Address: [address] [place] [address] Performed By: #### 5 7021-8 ####[facility] LABCLIA [id number] [address] LABCLIA [id number] [place] [address] MCH (RBC) [Entitic mass] 30.5 pg Normal 26.0-34.0 [facility] Comment on above: Order Comment: Speci men Type: BLOOD SPECIMENOrdering Facility: [facility] Address: [address] [place] [address] Performed By: #### 5 7021-8 ####[facility] LABCLIA [id number] [address] LABCLIA [id number] [place] [address] MCHC (RBC) [Mass/Vol] 30.9 g/dL Normal 30.5-36.0 [facility] Comment on above: Order Comment: Speci men Type: BLOOD SPECIMENOrdering Facility: [facility] Address: [address] [place], [place] [address] Performed By: #### 5 7021-8 ####[facility] LABCLIA [id number] [address] LABCLIA [id number] [place] [address] MCV (RBC) [Entitic vol] 98.7 fL Normal 80.0-100.0 [facility] Comment on above: Order Comment: Speci men Type: BLOOD SPECIMENOrdering Facility: [facility] Address: [address] [place] [address] Performed By: #### 5 7021-8 ####[facility] LABCLIA [id number] [address] LABCLIA [id number] [place] [address] Monocytes (Bld) [#/Vol] 0.12 10*3/uL Normal <0.87 [facility] Comment on above: Order Comment: Speci men Type: BLOOD SPECIMENOrdering Facility: [facility] Address: [address] Performed By: #### 5 7021-8 ####[facility] LABCLIA [id number] [address] LABCLIA [id number] [place] [address] Monocytes/100 WBC (Bld) 6.0 % Normal [facility] Comment on above: Order Comment: Speci men Type: BLOOD SPECIMENOrdering Facility: [facility] Address: [address] [place] [address] Performed By: #### 5 7021-8 ####[facility] LABCLIA [id number] [address] LABCLIA [id number] [place] [address] MYELO% 2.0 % Normal [facility] Comment on above: Order Comment: Speci men Type: BLOOD SPECIMENOrdering Facility: [facility] Address: [address] [place] [address] Performed By: #### 5 7021-8 ####[facility] LABCLIA [id number] [place] [id number] [facility] LABCLIA [id number] [place] [address] Neutrophils (Bld) [#/Vol] 0.63 10*3/uL Low 1.45-7.50 [facility] Comment on above: Order Comment: Speci men Type: BLOOD SPECIMENOrdering Facility: [facility] Address: [address] [place] [address] Performed By: #### 5 7021-8 ####[facility] LABCLIA [id number] [address] LABCLIA [id number] [place] [address] Neutrophils/100 WBC (Bld) 32.0 % Normal [facility] Comment on above: Order Comment: Speci men Type: BLOOD SPECIMENOrdering Facility: [facility] Address: [address] [place] [address] Performed By: #### 5 7021-8 ####[facility] LABCLIA [id number] [address] LABCLIA [id number] [place] [address] Nucleated RBC (Bld) [#/Vol] 10*3/uL Normal <0.01 [facility] Comment on above: Order Comment: Speci men Type: BLOOD SPECIMENOrdering Facility: [facility] Address: [address] [place], [place] [address] Performed By: #### 5 7021-8 ####[facility] LABCLIA [id number] [address] LABCLIA [id number] [place] [address] Nucleated RBC/100 WBC (Bld) [Ratio] 0.0 /100 WBC Normal [facility] [facility] Comment on above: Order Comment: Speci men Type: BLOOD SPECIMENOrdering Facility: [facility] Address: [address] [place], [place] [address] Performed By: #### 5 7021-8 ####[facility] LABCLIA [id number] [address] [address] [facility] LABCLIA [id number] [place] [address] Ovalocytes LM Ql (Bld) Few Normal [facility] Comment on above: Order Comment: Speci men Type: BLOOD SPECIMENOrdering Facility: [facility] Address: [address] [place] [address] Performed By: #### 5 7021-8 ####[facility] LABCLIA [id number] [address] LABCLIA [id number] [place] [address] Platelet mean volume (Bld) [Entitic vol] 14.9 fL High 9.0-12.7 [facility] Comment on above: Order Comment: Speci men Type: BLOOD SPECIMENOrdering Facility: [facility] Address: [address] [place] [address] Performed By: #### 5 7021-8 ####[facility] LABCLIA [id number] [address] LABCLIA [id number] [place] [address] Platelets (Bld) [#/Vol] 73 10*3/uL Low 150-400 [facility] Comment on above: Order Comment: Speci men Type: BLOOD SPECIMENOrdering Facility: [facility] Address: [address] [place] [address] Performed By: #### 5 7021-8 ####[facility] LABCLIA [id number] [address] LABCLIA [id number] [place] [address] Platelets Estimate (Bld) [#/Vol] Decreased Normal [facility] Comment on above: Order Comment: Speci men Type: BLOOD SPECIMENOrdering Facility: [facility] Address: [address] [place] [address] Performed By: #### 5 7021-8 ####[facility] LABCLIA [id number] [address] LABCLIA [id number] [place] [address] Polychromasia LM Ql (Bld) Slight Normal [facility] Comment on above: Order Comment: Speci men Type: BLOOD SPECIMENOrdering Facility: [facility] Address: [address] [place] [address] Performed By: #### 5 7021-8 ####[facility] LABCLIA [id number] [address] LABCLIA [id number] [place] [address] RBC (Bld) [#/Vol] 2.39 10*6/uL Low 4.20-6.00 [facility] Comment on above: Order Comment: Speci men Type: BLOOD SPECIMENOrdering Facility: [facility] Address: [address] [place] [address] Performed By: #### 5 7021-8 ####[facility] LABCLIA [id number] [address] LABCLIA [id number] [place] [address] RBC FRAGMENTS Few Abnormal None Seen [facility] Comment on above: Order Comment: Speci men Type: BLOOD SPECIMENOrdering Facility: [facility] Address: [address] [place], [place] [address] Performed By: #### 5 7021-8 ####[facility] LABCLIA [id number] [address] [facility] LABCLIA [id number] [place] [address] RED CELL MORPH Reviewed: see result s of individual morphologies Normal [facility] Comment on above: Order Comment: Speci men Type: BLOOD SPECIMENOrdering Facility: [facility] Address: [address] [place] [address] Performed By: #### 5 7021-8 ####[facility] LABCLIA [id number] [address] LABCLIA [id number] [place] [address] WBC (Bld) [#/Vol] 1.97 10*3/uL Low 3.70-11.00 [facility] Comment on above: Order Comment: Speci men Type: BLOOD SPECIMENOrdering Facility: [facility] Address: [address] [place] [address] Result Comment: No c lot detected.Results checked and verified. Performed By: #### 5 7021-8 ####[facility] LABCLIA [id number] [address] LABCLIA [id number] [place] [address] CNOVSPon 08-14-2022 CNOVSP Normal [facility] CNPNon 08-14-2022 CNPN Normal [facility] Comprehensive metabolic 2000 panelon 08-14-2022 Albumin [Mass/Vol] 3.9 g/dL Normal 3.9-4.9 [facility] Comment on above: Order Comment: Speci men Type: BLOOD SPECIMENOrdering Facility: [facility] Address: [address] [place] [address] Performed By: #### 2 4323-8 ####[facility] LABCLIA [id number] [place] [address] ALP [Catalytic activity/Vol] 144 U/L High 38-113 [facility] Comment on above: Order Comment: Speci men Type: BLOOD SPECIMENOrdering Facility: [facility] Address: [address] [address] Performed By: #### 2 4323-8 ####[facility] LABCLIA [id number] [place] [address] ALT [Catalytic activity/Vol] 50 U/L Normal 10-54 [facility] Comment on above: Order Comment: Speci men Type: BLOOD SPECIMENOrdering Facility: [facility] Address: [address] [address] Performed By: #### 2 4323-8 ####[facility] LABCLIA [id number] [place] [address] Anion gap [Moles/Vol] 14 mmol/L Normal 9-18 [facility] Comment on above: Order Comment: Speci men Type: BLOOD SPECIMENOrdering Facility: [facility] Address: [address] [address] Performed By: #### 2 4323-8 ####[facility] LABCLIA [id number] [place] [address] AST [Catalytic activity/Vol] 22 U/L Normal 14-40 [facility] Comment on above: Order Comment: Speci men Type: BLOOD SPECIMENOrdering Facility: [facility] Address: [address] [address] Performed By: #### 2 4323-8 ####[facility] LABCLIA [id number] [place] [address] Bilirubin [Mass/Vol] 1.1 mg/dL Normal 0.2-1.3 [facility] Comment on above: Order Comment: Speci men Type: BLOOD SPECIMENOrdering Facility: [facility] Address: [address] [address] Performed By: #### 2 4323-8 ####[facility] LABCLIA [id number] [place] [address] Calcium [Mass/Vol] 9.3 mg/dL Normal 8.5-10.2 [facility] Comment on above: Order Comment: Speci men Type: BLOOD SPECIMENOrdering Facility: [facility] Address: [address] [place] [address] Performed By: #### 2 4323-8 ####[facility] LABCLIA [id number] [place] [address] Chloride [Moles/Vol] 104 mmol/L Normal 97-105 [facility] Comment on above: Order Comment: Speci men Type: BLOOD SPECIMENOrdering Facility: [facility] Address: [address] [place] [address] Performed By: #### 2 4323-8 ####[facility] LABCLIA [id number] [place] [address] CO2 [Moles/Vol] 30 mmol/L Normal 22-30 [facility] Comment on above: Order Comment: Speci men Type: BLOOD SPECIMENOrdering Facility: [facility] Address: [address] [place] [address] Performed By: #### 2 4323-8 ####[facility] LABCLIA [id number] [place] [address] Creatinine [Mass/Vol] 1.40 mg/dL High 0.73-1.22 [facility] Comment on above: Order Comment: Speci men Type: BLOOD SPECIMENOrdering Facility: [facility] Address: [address] [place] [address] Performed By: #### 2 4323-8 ####[facility] LABCLIA [id number] [place] [address] ESTIMATED GLOMERULAR FILTRATION RATE 50 mL/min/1.73m??? Low >=60 [facility] Comment on above: Order Comment: Speci men Type: BLOOD SPECIMENOrdering Facility: [facility] Address: [address] [place] [address] Result Comment: Faye mated Glomerular Filtration Rate (eGFR) is calculated using the 2020 CKD-EPI creatinine equation. This equation utilizes serum creatinine, sex, and age as parameters. The creatinine assay has traceable calibration to isotope dilution-mass spectrometry. Refer to KDIGO guidelines for clinical interpretation. In patients with unstable renal function, e.g. those with acute kidney injury, the eGFR may not accurately reflect actual GFR. Performed By: #### 2 4323-8 ####[facility] LABCLIA [id number] [place] [address] Glucose [Mass/Vol] 199 mg/dL High 74-99 [facility] Comment on above: Order Comment: Speci men Type: BLOOD SPECIMENOrdering Facility: [facility] Address: [address] [place], [place] [address] Result Comment: The [place] [employer] (ADA) provides guidance for cutoff values for fasting glucose and random glucose. The ADA defines fasting as no caloric intake for at least 8 hours. Fasting plasma glucose results between 100 to 125 mg/dL indicate increased risk for diabetes (prediabetes).Fasting plasma glucose results greater than or equal to 126 mg/dL meet the criteria for diagnosis of diabetes. In the absence of unequivocal hyperglycemia, results should be confirmed by repeat testing. In a patient with classic symptoms of hyperglycemia or hyperglycemic crisis, random plasma glucose results greater than or equal to 200 mg/dL meet the criteria for diagnosis of diabetes.Reference: Standards of Medical Care in Diabetes 2016, [employer] [place] [employer]. Diabetes Care. 2016.39(Suppl 1). Performed By: #### 2 4323-8 ####[facility] LABCLIA [id number] [place] [address] Potassium [Moles/Vol] 3.9 mmol/L Normal 3.7-5.1 [facility] Comment on above: Order Comment: Davi avendaño Type: BLOOD SPECIMENOrdering Facility: [facility] Address: [address] [place] [address] Performed By: #### 2 4323-8 ####[facility] LABCLIA [id number] [place] [address] Protein [Mass/Vol] 6.5 g/dL Normal 6.3-8.0 [facility] Comment on above: Order Comment: Speci men Type: BLOOD SPECIMENOrdering Facility: [facility] Address: [address] [address] Performed By: #### 2 4323-8 ####[facility] LABCLIA [id number] [place] [address] Sodium [Moles/Vol] 148 mmol/L High 136-144 [facility] Comment on above: Order Comment: Speci men Type: BLOOD SPECIMENOrdering Facility: [facility] Address: [address] [address] Performed By: #### 2 4323-8 ####[facility] LABCLIA [id number] [place] [address] Urea nitrogen [Mass/Vol] 22 mg/dL Normal 9-24 [facility] Comment on above: Order Comment: Speci men Type: BLOOD SPECIMENOrdering Facility: [facility] Address: [address] [address] Performed By: #### 2 4323-8 ####[facility] LABCLIA [id number] [place] [address] HEMOGRAM AND PLATELon 2022 Hematocrit (Bld) [Volume fraction] 22.4 % Critically low 42.0-54.0 [facility] Comment on above: Performed By: #### H H #### [facility] [address] [place] [address] Dr. Benito To Hemoglobin (Bld) [Mass/Vol] 7.2 g/dL Critically low 14.0-18.0 [facility] Comment on above: Performed By: #### H H #### [facility] [address] [place] [address] Dr. Benito To MCH (RBC) [Entitic mass] 30.9 pg Normal 25.9-34.0 [facility] Comment on above: Performed By: #### H H #### [facility] [address] [address] [address] Benito To MCHC (RBC) [Mass/Vol] 32.1 g/dL Normal 29.9-35.2 [facility] Comment on above: Performed By: #### H H #### [facility] [address] [address] [address] Benito To MCV (RBC) [Entitic vol] 96.1 fL Critically high 80.0-94.0 [facility] Comment on above: Performed By: #### H H #### [facility] [address] [address] [address] Benito To PLT 59 103/ul Critically low 150-450 [facility] Comment on above: Performed By: #### H H #### [facility] [address] [address] [address] Benito To RBC 2.33 106/ul Critically low 4.70-6.10 [facility] Comment on above: Performed By: #### H H #### [facility] [address] [address] [address] Benito To WBC 1.8 103/ul Critically low 4.0-11.0 [facility] Comment on above: Performed By: #### H H #### [facility] [address] [address] [address] Benito To LDH SerPl-cCncon 08-14-2022 LDH [Catalytic activity/Vol] 207 U/L Normal 135-225 [facility] Comment on above: Order Comment: Speci men Type: BLOOD SPECIMENOrdering Facility: [facility] Address: [address] [place] [address] Performed By: #### 2 532-0 ####[facility] LABCLIA [id number] [place] [address] Provider Letteron 08-14-2022 Provider Letter (Inserted Image. Guerda ble to display) August 14, 2022 SANDIP BROUSSARD [address] [place] [id number] SANDIP BROUSSARD 1940 Dear Mr. Broussard, We have been trying to reach you with no success. You have an appointment with Dr. Mohan on September 10, 2022 which will need to be rescheduled since he will be out of the office that day. Please contact the office at the number listed below to get this appointment rescheduled at your earliest convenience. Thank you for your prompt attention to this matter. Sincerely, [facility] [address], [place] [address] x1 Normal [facility] TYPE AND SCREENon 08-14-2022 TYPE AND SCREEN Negative Normal [facility] Comment on above: Performed By: #### P RBC, TNS #### [facility] [address] [place] [address] Dr. Benito To CNPNon 08-13-2022 CNPN Normal [facility] PRBC LEUKOREDUCEDon 08-12-19 PRBC LEUKOREDUCED Cross Match Result Compatible Unit Blood Type A Pos Unit Number [id number] Status Information Transfused Product ID Red Blood Cells Product Code [id number] Normal [facility] Comment on above: Performed By: #### P RBC, TNS #### [facility] [address] [place] [address] Dr. Benito To HEMOGLOBIN AND HEMATOCRITon 08-08-2022 Hematocrit (Bld) [Volume fraction] 23.4 % Critically low 42.0-54.0 [facility] Comment on above: Performed By: #### H H #### [facility] [address] [place] [address] Dr. Benito To Hemoglobin (Bld) [Mass/Vol] 7.0 g/dL Critically low 14.0-18.0 [facility] Comment on above: Performed By: #### H H #### [facility] [address] [place] [address] Dr. Benito To TYPE AND SCREENon 08-08-2022 TYPE AND SCREEN Negative Normal [facility] Comment on above: Performed By: #### P RBC, TNS #### [facility] [address] [place] [address] Dr. Benito To CBC W Auto Differential pane l (Bld)on 08-07-2022 Anisocytosis Ql (Bld) Present Normal [facility] Comment on above: Order Comment: Speci men Type: BLOOD SPECIMENOrdering Facility: [facility] Address: [address] [place] [address] Performed By: #### 5 7021-8 ####[facility] LABCLIA [id number] [address] LABCLIA [id number] [place] [address] Basophils (Bld) [#/Vol] 0.05 10*3/uL Normal <0.11 [facility] Comment on above: Order Comment: Speci men Type: BLOOD SPECIMENOrdering Facility: [facility] Address: [address] [place] [address] Performed By: #### 5 7021-8 ####[facility] LABCLIA [id number] [address] LABCLIA [id number] [place] [address] Basophils/100 WBC (Bld) 3.0 % Normal [facility] Comment on above: Order Comment: Speci men Type: BLOOD SPECIMENOrdering Facility: [facility] Address: [address] [place] [address] Performed By: #### 5 7021-8 ####[facility] LABCLIA [id number] [address] LABCLIA [id number] [place] [address] Differential cell count method Nom (Bld) Manual Normal [facility] Comment on above: Order Comment: Speci men Type: BLOOD SPECIMENOrdering Facility: [facility] Address: [address] [place] [address] Performed By: #### 5 7021-8 ####[facility] LABCLIA [id number] [address] LABCLIA [id number] [place] [address] Eosinophils (Bld) [#/Vol] 0.05 10*3/uL Normal <0.46 [facility] Comment on above: Order Comment: Speci men Type: BLOOD SPECIMENOrdering Facility: [facility] Address: [address] [place] [address] Performed By: #### 5 7021-8 ####[facility] LABCLIA [id number] [address] LABCLIA [id number] [place] [address] Eosinophils/100 WBC (Bld) 3.0 % Normal [facility] Comment on above: Order Comment: Speci men Type: BLOOD SPECIMENOrdering Facility: [facility] Address: [address] [place] [address] Performed By: #### 5 7021-8 ####[facility] LABCLIA [id number] [address] LABCLIA [id number] [place] [address] Erythrocyte distribution width (RBC) [Ratio] 16.4 % High 11.5-15.0 [facility] Comment on above: Order Comment: Speci men Type: BLOOD SPECIMENOrdering Facility: [facility] Address: [address] [place] [address] Performed By: #### 5 7021-8 ####[facility] LABCLIA [id number] [address] LABCLIA [id number] [place] [address] Giant platelets LM Ql (Bld) Occasional Normal [facility] Comment on above: Order Comment: Speci men Type: BLOOD SPECIMENOrdering Facility: [facility] Address: [address] [place] [address] Performed By: #### 5 7021-8 ####[facility] LABCLIA [id number] [address] LABCLIA [id number] [place] [address] Hematocrit (Bld) [Volume fraction] 23.4 % Low 39.0-51.0 [facility] Comment on above: Order Comment: Speci men Type: BLOOD SPECIMENOrdering Facility: [facility] Address: [address] [place] [address] Performed By: #### 5 7021-8 ####[facility] LABCLIA [id number] [address] LABCLIA [id number] [place] [address] Hemoglobin (Bld) [Mass/Vol] 7.2 g/dL Low 13.0-17.0 [facility] Comment on above: Order Comment: Speci men Type: BLOOD SPECIMENOrdering Facility: [facility] Address: [address] [place] [address] Performed By: #### 5 7021-8 ####[facility] LABCLIA [id number] [address] LABCLIA [id number] [place] [address] Lymphocytes (Bld) [#/Vol] 0.89 10*3/uL Low 1.00-4.00 [facility] Comment on above: Order Comment: Speci men Type: BLOOD SPECIMENOrdering Facility: [facility] Address: [address] [place] [address] Performed By: #### 5 7021-8 ####[facility] LABCLIA [id number] [address] LABCLIA [id number] [place] [address] Lymphocytes/100 WBC (Bld) 54.0 % Normal [facility] Comment on above: Order Comment: Speci men Type: BLOOD SPECIMENOrdering Facility: [facility] Address: [address] [place] [address] Performed By: #### 5 7021-8 ####[facility] LABCLIA [id number] [address] LABCLIA [id number] [place] [address] MCH (RBC) [Entitic mass] 30.3 pg Normal 26.0-34.0 [facility] Comment on above: Order Comment: Speci men Type: BLOOD SPECIMENOrdering Facility: [facility] Address: [address] [place], [place] [address] Performed By: #### 5 7021-8 ####[facility] LABCLIA [id number] [address] LABCLIA [id number] [place] [address] MCHC (RBC) [Mass/Vol] 30.8 g/dL Normal 30.5-36.0 [facility] Comment on above: Order Comment: Speci men Type: BLOOD SPECIMENOrdering Facility: [facility] Address: [address] [place], [place] [address] Performed By: #### 5 7021-8 ####[facility] LABCLIA [id number] [address] LABCLIA [id number] [place] [address] MCV (RBC) [Entitic vol] 98.3 fL Normal 80.0-100.0 [facility] Comment on above: Order Comment: Speci men Type: BLOOD SPECIMENOrdering Facility: [facility] Address: [address] [place] [address] Performed By: #### 5 7021-8 ####[facility] LABCLIA [id number] [address] LABCLIA [id number] [place] [address] Monocytes (Bld) [#/Vol] 0.12 10*3/uL Normal <0.87 [facility] Comment on above: Order Comment: Speci men Type: BLOOD SPECIMENOrdering Facility: [facility] Address: [address] [place] [address] Performed By: #### 5 7021-8 ####[facility] LABCLIA [id number] [address] LABCLIA [id number] [place] [address] Monocytes/100 WBC (Bld) 7.0 % Normal [facility] Comment on above: Order Comment: Speci men Type: BLOOD SPECIMENOrdering Facility: [facility] Address: [address] [place] [address] Performed By: #### 5 7021-8 ####[facility] LABCLIA [id number] [address] LABCLIA [id number] [place] [address] Neutrophils (Bld) [#/Vol] 0.54 10*3/uL Low 1.45-7.50 [facility] Comment on above: Order Comment: Speci men Type: BLOOD SPECIMENOrdering Facility: [facility] Address: [address] [place] [address] Performed By: #### 5 7021-8 ####[facility] LABCLIA [id number] [address] [address] [facility] LABCLIA [id number] [place] [address] Neutrophils/100 WBC (Bld) 33.0 % Normal [facility] Comment on above: Order Comment: Speci men Type: BLOOD SPECIMENOrdering Facility: [facility] Address: [address] [place] [address] Performed By: #### 5 7021-8 ####[facility] LABCLIA [id number] [address] LABCLIA [id number] [place] [address] Nucleated RBC (Bld) [#/Vol] 10*3/uL Normal <0.01 [facility] Comment on above: Order Comment: Speci men Type: BLOOD SPECIMENOrdering Facility: [facility] Address: [address] [place], [place] [address] Result Comment: This result was previously suppressed from the chart. Performed By: #### 5 7021-8 ####[facility] LABCLIA [id number] [address] LABCLIA [id number] [place] [address] Nucleated RBC/100 WBC (Bld) [Ratio] 0.0 /100 WBC Normal [facility] Comment on above: Order Comment: Speci men Type: BLOOD SPECIMENOrdering Facility: [facility] Address: [address] [place] [address] Performed By: #### 5 7021-8 ####[facility] LABCLIA [id number] [address] LABCLIA [id number] [place] [address] Ovalocytes LM Ql (Bld) Few Normal [facility] Comment on above: Order Comment: Speci men Type: BLOOD SPECIMENOrdering Facility: [facility] Address: [address] Performed By: #### 5 7021-8 ####[facility] LABCLIA [id number] [address] LABCLIA [id number] [place] [address] Platelet mean volume (Bld) [Entitic vol] 15.0 fL High 9.0-12.7 [facility] Comment on above: Order Comment: Speci men Type: BLOOD SPECIMENOrdering Facility: [facility] Address: [address] Performed By: #### 5 7021-8 ####[facility] LABCLIA [id number] [address] LABCLIA [id number] [place] [address] Platelets (Bld) [#/Vol] 76 10*3/uL Low 150-400 [facility] Comment on above: Order Comment: Speci men Type: BLOOD SPECIMENOrdering Facility: [facility] Address: [address] [address] Performed By: #### 5 7021-8 ####[facility] LABCLIA [id number] [address] LABCLIA [id number] [place] [address] Platelets Estimate (Bld) [#/Vol] Decreased Normal [facility] Comment on above: Order Comment: Speci men Type: BLOOD SPECIMENOrdering Facility: [facility] Address: [address] [place], [place] [address] Performed By: #### 5 7021-8 ####[facility] LABCLIA [id number] [address] LABCLIA [id number] [place] [address] RBC (Bld) [#/Vol] 2.38 10*6/uL Low 4.20-6.00 [facility] Comment on above: Order Comment: Speci men Type: BLOOD SPECIMENOrdering Facility: [facility] Address: [address] [place] [address] Performed By: #### 5 7021-8 ####[facility] LABCLIA [id number] [address] LABCLIA [id number] [place] [address] RED CELL MORPH Reviewed: see result s of individual morphologies Normal [facility] Comment on above: Order Comment: Speci men Type: BLOOD SPECIMENOrdering Facility: [facility] Address: [address] [place] [address] Performed By: #### 5 7021-8 ####[facility] LABCLIA [id number] [address] LABCLIA [id number] [place] [address] WBC (Bld) [#/Vol] 1.65 10*3/uL Low 3.70-11.00 [facility] Comment on above: Order Comment: Speci men Type: BLOOD SPECIMENOrdering Facility: [facility] Address: [address] [place], [place] [address] Performed By: #### 5 7021-8 ####[facility] LABCLIA [id number] [address] LABCLIA [id number] [place] [address] CNOVSPon 08-07-2022 CNOVSP Normal [facility] Comprehensive metabolic 2000 panelon 08-07-2022 Albumin [Mass/Vol] 3.9 g/dL Normal 3.9-4.9 [facility] Comment on above: Order Comment: Speci men Type: BLOOD SPECIMENOrdering Facility: [facility] Address: [address] [place] [address] Performed By: #### 2 4323-8 ####[facility] LABCLIA [id number] [place] [address] ALP [Catalytic activity/Vol] 144 U/L High 38-113 [facility] Comment on above: Order Comment: Speci men Type: BLOOD SPECIMENOrdering Facility: [facility] Address: [address] [address] Performed By: #### 2 4323-8 ####[facility] LABCLIA [id number] [place] [address] ALT [Catalytic activity/Vol] 64 U/L High 10-54 [facility] Comment on above: Order Comment: Speci men Type: BLOOD SPECIMENOrdering Facility: [facility] Address: [address] [place] [address] Performed By: #### 2 4323-8 ####[facility] LABCLIA [id number] [place] [address] Anion gap [Moles/Vol] 9 mmol/L Normal 9-18 [facility] Comment on above: Order Comment: Speci men Type: BLOOD SPECIMENOrdering Facility: [facility] Address: [address] [place] [address] Performed By: #### 2 4323-8 ####[facility] LABCLIA [id number] [place] [address] AST [Catalytic activity/Vol] 31 U/L Normal 14-40 [facility] Comment on above: Order Comment: Speci men Type: BLOOD SPECIMENOrdering Facility: [facility] Address: [address] [place] [address] Performed By: #### 2 4323-8 ####[facility] LABCLIA [id number] [place] [address] Bilirubin [Mass/Vol] 1.0 mg/dL Normal 0.2-1.3 [facility] Comment on above: Order Comment: Speci men Type: BLOOD SPECIMENOrdering Facility: [facility] Address: [address] [place] [address] Performed By: #### 2 4323-8 ####[facility] LABCLIA [id number] [place] [address] Calcium [Mass/Vol] 9.0 mg/dL Normal 8.5-10.2 [facility] Comment on above: Order Comment: Speci men Type: BLOOD SPECIMENOrdering Facility: [facility] Address: [address] [place] [address] Performed By: #### 2 4323-8 ####[facility] LABCLIA [id number] [place] [address] Chloride [Moles/Vol] 102 mmol/L Normal 97-105 [facility] Comment on above: Order Comment: Speci men Type: BLOOD SPECIMENOrdering Facility: [facility] Address: [address] [place] [address] Performed By: #### 2 4323-8 ####[facility] LABCLIA [id number] [place] [address] CO2 [Moles/Vol] 32 mmol/L High 22-30 [facility] Comment on above: Order Comment: Speci men Type: BLOOD SPECIMENOrdering Facility: [facility] Address: [address] [place] [address] Performed By: #### 2 4323-8 ####[facility] LABCLIA [id number] [place] [address] Creatinine [Mass/Vol] 1.54 mg/dL High 0.73-1.22 [facility] Comment on above: Order Comment: Speci men Type: BLOOD SPECIMENOrdering Facility: [facility] Address: [address] [place] [address] Performed By: #### 2 4323-8 ####[facility] LABCLIA [id number] [place] [address] ESTIMATED GLOMERULAR FILTRATION RATE 44 mL/min/1.73m??? Low >=60 [facility] Comment on above: Order Comment: Speci men Type: BLOOD SPECIMENOrdering Facility: [facility] Address: [address] [place] [address] Result Comment: Faye mated Glomerular Filtration Rate (eGFR) is calculated using the 2020 CKD-EPI creatinine equation. This equation utilizes serum creatinine, sex, and age as parameters. The creatinine assay has traceable calibration to isotope dilution-mass spectrometry. Refer to KDIGO guidelines for clinical interpretation. In patients with unstable renal function, e.g. those with acute kidney injury, the eGFR may not accurately reflect actual GFR. Performed By: #### 2 4323-8 ####[facility] LABCLIA [id number] [place] [address] Glucose [Mass/Vol] 138 mg/dL High 74-99 [facility] Comment on above: Order Comment: Speci kateryna Type: BLOOD SPECIMENOrdering Facility: [facility] Address: [address] [place] [address] Result Comment: The [place] [employer] (ADA) provides guidance for cutoff values for fasting glucose and random glucose. The ADA defines fasting as no caloric intake for at least 8 hours. Fasting plasma glucose results between 100 to 125 mg/dL indicate increased risk for diabetes (prediabetes).Fasting plasma glucose results greater than or equal to 126 mg/dL meet the criteria for diagnosis of diabetes. In the absence of unequivocal hyperglycemia, results should be confirmed by repeat testing. In a patient with classic symptoms of hyperglycemia or hyperglycemic crisis, random plasma glucose results greater than or equal to 200 mg/dL meet the criteria for diagnosis of diabetes.Reference: Standards of Medical Care in Diabetes 2016, [employer] [place] [employer]. Diabetes Care. 2016.39(Suppl 1). Performed By: #### 2 4323-8 ####[facility] LABCLIA [id number] [place] [address] Potassium [Moles/Vol] 4.2 mmol/L Normal 3.7-5.1 [facility] Comment on above: Order Comment: Speci men Type: BLOOD SPECIMENOrdering Facility: [facility] Address: [address] [place] [address] Performed By: #### 2 4323-8 ####[facility] LABCLIA [id number] [place] [address] Protein [Mass/Vol] 6.1 g/dL Low 6.3-8.0 [facility] Comment on above: Order Comment: Speci men Type: BLOOD SPECIMENOrdering Facility: [facility] Address: [address] [place] [address] Performed By: #### 2 4323-8 ####[facility] LABCLIA [id number] [place] [address] Sodium [Moles/Vol] 143 mmol/L Normal 136-144 [facility] Comment on above: Order Comment: Speci men Type: BLOOD SPECIMENOrdering Facility: [facility] Address: [address] [place] [address] Performed By: #### 2 4323-8 ####[facility] LABCLIA [id number] [place] [address] Urea nitrogen [Mass/Vol] 27 mg/dL High 9-24 [facility] Comment on above: Order Comment: Speci men Type: BLOOD SPECIMENOrdering Facility: [facility] Address: [address] [place] [address] Performed By: #### 2 4323-8 ####[facility] LABCLIA [id number] [place] [address] CBC W Auto Differential pane l (Bld)on 07-30-2022 Anisocytosis Ql (Bld) Present Normal [facility] Comment on above: Order Comment: Speci men Type: BLOOD SPECIMENOrdering Facility: [facility] Address: [address] [place] [address] Performed By: #### 5 7021-8 ####[facility] LABCLIA [id number] [address] [address] [facility] LABCLIA [id number] [place] [address] Basophils (Bld) [#/Vol] 0.06 10*3/uL Normal <0.11 [facility] Comment on above: Order Comment: Speci men Type: BLOOD SPECIMENOrdering Facility: [facility] Address: [address] [place] [address] Performed By: #### 5 7021-8 ####[facility] LABCLIA [id number] [address] LABCLIA [id number] [place] [address] Basophils/100 WBC (Bld) 3.0 % Normal [facility] Comment on above: Order Comment: Speci men Type: BLOOD SPECIMENOrdering Facility: [facility] Address: [address] [place] [address] Performed By: #### 5 7021-8 ####[facility] LABCLIA [id number] [address] LABCLIA [id number] [place] [address] BLAST% 1.0 % High <=0.0 [facility] Comment on above: Order Comment: Speci men Type: BLOOD SPECIMENOrdering Facility: [facility] Address: [address] [place], [place] [address] Result Comment: This result was previously suppressed from the chart. Performed By: #### 5 7021-8 ####[facility] LABCLIA [id number] [place] [id number] [facility] LABCLIA [id number] [place] [address] Differential cell count method Nom (Bld) Manual Normal [facility] Comment on above: Order Comment: Speci men Type: BLOOD SPECIMENOrdering Facility: [facility] Address: [address] [place] [address] Performed By: #### 5 7021-8 ####[facility] LABCLIA [id number] [address] LABCLIA [id number] [place] [id number] Eosinophils (Bld) [#/Vol] 0.08 10*3/uL Normal <0.46 [facility] Comment on above: Order Comment: Speci men Type: BLOOD SPECIMENOrdering Facility: [facility] Address: [address] [place] [address] Performed By: #### 5 7021-8 ####[facility] LABCLIA [id number] [address] LABCLIA [id number] [place] [address] Eosinophils/100 WBC (Bld) 4.0 % Normal [facility] Comment on above: Order Comment: Speci men Type: BLOOD SPECIMENOrdering Facility: [facility] Address: [address] [place] [address] Performed By: #### 5 7021-8 ####[facility] LABCLIA [id number] [address] LABCLIA [id number] [place] [address] Erythrocyte distribution width (RBC) [Ratio] 15.9 % High 11.5-15.0 [facility] Comment on above: Order Comment: Speci men Type: BLOOD SPECIMENOrdering Facility: [facility] Address: [address] [place] [address] Performed By: #### 5 7021-8 ####[facility] LABCLIA [id number] [address] LABCLIA [id number] [place] [address] Giant platelets LM Ql (Bld) Occasional Normal [facility] Comment on above: Order Comment: Speci men Type: BLOOD SPECIMENOrdering Facility: [facility] Address: [address] [place] [address] Performed By: #### 5 7021-8 ####[facility] LABCLIA [id number] [address] LABCLIA [id number] [place] [address] Hematocrit (Bld) [Volume fraction] 27.5 % Low 39.0-51.0 [facility] Comment on above: Order Comment: Speci men Type: BLOOD SPECIMENOrdering Facility: [facility] Address: [address] [place] [address] Performed By: #### 5 7021-8 ####[facility] LABCLIA [id number] [address] LABCLIA [id number] [place] [address] Hemoglobin (Bld) [Mass/Vol] 8.6 g/dL Low 13.0-17.0 [facility] Comment on above: Order Comment: Speci men Type: BLOOD SPECIMENOrdering Facility: [facility] Address: [address] [place] [address] Performed By: #### 5 7021-8 ####[facility] LABCLIA [id number] [address] LABCLIA [id number] [place] [address] Lymphocytes (Bld) [#/Vol] 0.84 10*3/uL Low 1.00-4.00 [facility] Comment on above: Order Comment: Speci men Type: BLOOD SPECIMENOrdering Facility: [facility] Address: [address] [place] [address] Performed By: #### 5 7021-8 ####[facility] LABCLIA [id number] [address] LABCLIA [id number] [place] [address] Lymphocytes/100 WBC (Bld) 41.0 % Normal [facility] Comment on above: Order Comment: Speci men Type: BLOOD SPECIMENOrdering Facility: [facility] Address: [address] [place] [address] Performed By: #### 5 7021-8 ####[facility] LABCLIA [id number] [address] LABCLIA [id number] [place] [address] MCH (RBC) [Entitic mass] 30.5 pg Normal 26.0-34.0 [facility] Comment on above: Order Comment: Speci men Type: BLOOD SPECIMENOrdering Facility: [facility] Address: [address] [place] [address] Performed By: #### 5 7021-8 ####[facility] LABCLIA [id number] [address] LABCLIA [id number] [place] [address] MCHC (RBC) [Mass/Vol] 31.3 g/dL Normal 30.5-36.0 [facility] Comment on above: Order Comment: Speci men Type: BLOOD SPECIMENOrdering Facility: [facility] Address: [address] [place] [address] Performed By: #### 5 7021-8 ####[facility] LABCLIA [id number] [address] LABCLIA [id number] [place] [address] MCV (RBC) [Entitic vol] 97.5 fL Normal 80.0-100.0 [facility] Comment on above: Order Comment: Speci men Type: BLOOD SPECIMENOrdering Facility: [facility] Address: [address] [place] [address] Performed By: #### 5 7021-8 ####[facility] LABCLIA [id number] [address] LABCLIA [id number] [place] [address] Monocytes (Bld) [#/Vol] 0.10 10*3/uL Normal <0.87 [facility] Comment on above: Order Comment: Speci men Type: BLOOD SPECIMENOrdering Facility: [facility] Address: [address] [place] [address] Performed By: #### 5 7021-8 ####[facility] LABCLIA [id number] [address] LABCLIA [id number] [place] [address] Monocytes/100 WBC (Bld) 5.0 % Normal [facility] Comment on above: Order Comment: Speci men Type: BLOOD SPECIMENOrdering Facility: [facility] Address: [address] [place] [address] Performed By: #### 5 7021-8 ####[facility] LABCLIA [id number] [address] LABCLIA [id number] [place] [address] Neutrophils (Bld) [#/Vol] 0.95 10*3/uL Low 1.45-7.50 [facility] Comment on above: Order Comment: Speci men Type: BLOOD SPECIMENOrdering Facility: [facility] Address: [address] [place] [address] Performed By: #### 5 7021-8 ####[facility] LABCLIA [id number] [address] LABCLIA [id number] [place] [address] Neutrophils/100 WBC (Bld) 46.0 % Normal [facility] Comment on above: Order Comment: Speci men Type: BLOOD SPECIMENOrdering Facility: [facility] Address: [address] [place] [address] Performed By: #### 5 7021-8 ####[facility] LABCLIA [id number] [address] LABCLIA [id number] [place] [address] Nucleated RBC (Bld) [#/Vol] 10*3/uL Normal <0.01 [facility] Comment on above: Order Comment: Speci men Type: BLOOD SPECIMENOrdering Facility: [facility] Address: [address] [place] [address] Result Comment: This result was previously suppressed from the chart. Performed By: #### 5 7021-8 ####[facility] LABCLIA [id number] [address] LABCLIA [id number] [place] [address] Nucleated RBC/100 WBC (Bld) [Ratio] 0.0 /100 WBC Normal [facility] Comment on above: Order Comment: Speci men Type: BLOOD SPECIMENOrdering Facility: [facility] Address: [address] [place] [address] Performed By: #### 5 7021-8 ####[facility] LABCLIA [id number] [address] LABCLIA [id number] [place] [address] Ovalocytes LM Ql (Bld) Few Normal [facility] Comment on above: Order Comment: Speci men Type: BLOOD SPECIMENOrdering Facility: [facility] Address: [address] [place] [address] Performed By: #### 5 7021-8 ####[facility] LABCLIA [id number] [address] LABCLIA [id number] [place] [address] Platelet mean volume (Bld) [Entitic vol] Normal [facility] Comment on above: Order Comment: Speci men Type: BLOOD SPECIMENOrdering Facility: [facility] Address: [address] [place] [address] Result Comment: Unab le to report Performed By: #### 5 7021-8 ####[facility] LABCLIA [id number] [address] LABCLIA [id number] [place] [address] Platelets (Bld) [#/Vol] 84 10*3/uL Low 150-400 [facility] Comment on above: Order Comment: Speci men Type: BLOOD SPECIMENOrdering Facility: [facility] Address: [address] [place] [address] Performed By: #### 5 7021-8 ####[facility] LABCLIA [id number] [address] LABCLIA [id number] [place] [address] Platelets Estimate (Bld) [#/Vol] Decreased Normal [facility] Comment on above: Order Comment: Speci men Type: BLOOD SPECIMENOrdering Facility: [facility] Address: [address] [place] [address] Performed By: #### 5 7021-8 ####[facility] LABCLIA [id number] [address] LABCLIA [id number] [place] [address] RBC (Bld) [#/Vol] 2.82 10*6/uL Low 4.20-6.00 [facility] Comment on above: Order Comment: Speci men Type: BLOOD SPECIMENOrdering Facility: [facility] Address: [address] [place] [address] Performed By: #### 5 7021-8 ####[facility] LABCLIA [id number] [address] LABCLIA [id number] [place] [address] RED CELL MORPH Reviewed: see result s of individual morphologies Normal [facility] Comment on above: Order Comment: Speci men Type: BLOOD SPECIMENOrdering Facility: [facility] Address: [address] [place] [address] Performed By: #### 5 7021-8 ####[facility] LABCLIA [id number] [address] LABCLIA [id number] [place] [address] WBC (Bld) [#/Vol] 2.06 10*3/uL Low 3.70-11.00 [facility] Comment on above: Order Comment: Speci men Type: BLOOD SPECIMENOrdering Facility: [facility] Address: [address] [place] [address] Performed By: #### 5 7021-8 ####[facility] LABCLIA [id number] [place] [id number] LABCLIA [id number] [place] [address] CNOVSPon 07-30-2022 CNOVSP Normal [facility] Comprehensive metabolic 2000 panelon 07-30-2022 Albumin [Mass/Vol] 3.9 g/dL Normal 3.9-4.9 [facility] Comment on above: Order Comment: Speci men Type: BLOOD SPECIMENOrdering Facility: [facility] Address: [address] [address] Performed By: #### 2 4323-8 ####[facility] LABCLIA [id number] [place] [address] ALP [Catalytic activity/Vol] 130 U/L High 38-113 [facility] Comment on above: Order Comment: Speci men Type: BLOOD SPECIMENOrdering Facility: [facility] Address: [address] [place] [address] Performed By: #### 2 4323-8 ####[facility] LABCLIA [id number] [place] [address] ALT [Catalytic activity/Vol] 45 U/L Normal 10-54 [facility] Comment on above: Order Comment: Speci men Type: BLOOD SPECIMENOrdering Facility: [facility] Address: [address] [place] [address] Performed By: #### 2 4323-8 ####[facility] LABCLIA [id number] [place] [address] Anion gap [Moles/Vol] 9 mmol/L Normal 9-18 [facility] Comment on above: Order Comment: Speci men Type: BLOOD SPECIMENOrdering Facility: [facility] Address: [address] [place] [address] Performed By: #### 2 4323-8 ####[facility] LABCLIA [id number] [place] [address] AST [Catalytic activity/Vol] 24 U/L Normal 14-40 [facility] Comment on above: Order Comment: Speci men Type: BLOOD SPECIMENOrdering Facility: [facility] Address: [address] [address] Performed By: #### 2 4323-8 ####[facility] LABCLIA [id number] [place] [address] Bilirubin [Mass/Vol] 1.0 mg/dL Normal 0.2-1.3 [facility] Comment on above: Order Comment: Speci men Type: BLOOD SPECIMENOrdering Facility: [facility] Address: [address] [address] Performed By: #### 2 4323-8 ####[facility] LABCLIA [id number] [place] [address] Calcium [Mass/Vol] 9.2 mg/dL Normal 8.5-10.2 [facility] Comment on above: Order Comment: Speci men Type: BLOOD SPECIMENOrdering Facility: [facility] Address: [address] [address] Performed By: #### 2 4323-8 ####[facility] LABCLIA [id number] [place] [address] Chloride [Moles/Vol] 100 mmol/L Normal 97-105 [facility] Comment on above: Order Comment: Speci men Type: BLOOD SPECIMENOrdering Facility: [facility] Address: [address] [address] Performed By: #### 2 4323-8 ####[facility] LABCLIA [id number] [place] [address] CO2 [Moles/Vol] 34 mmol/L High 22-30 [facility] Comment on above: Order Comment: Speci men Type: BLOOD SPECIMENOrdering Facility: [facility] Address: [address] [place] [address] Performed By: #### 2 4323-8 ####[facility] LABCLIA [id number] [place] [address] Creatinine [Mass/Vol] 1.50 mg/dL High 0.73-1.22 [facility] Comment on above: Order Comment: Davi avendaño Type: BLOOD SPECIMENOrdering Facility: [facility] Address: [address] [place] [address] Performed By: #### 2 4323-8 ####[facility] LABCLIA [id number] [place] [address] ESTIMATED GLOMERULAR FILTRATION RATE 46 mL/min/1.73m??? Low >=60 [facility] Comment on above: Order Comment: Davi avendaño Type: BLOOD SPECIMENOrdering Facility: [facility] Address: [address] [place] [address] Result Comment: Faye mated Glomerular Filtration Rate (eGFR) is calculated using the 2020 CKD-EPI creatinine equation. This equation utilizes serum creatinine, sex, and age as parameters. The creatinine assay has traceable calibration to isotope dilution-mass spectrometry. Refer to KDIGO guidelines for clinical interpretation. In patients with unstable renal function, e.g. those with acute kidney injury, the eGFR may not accurately reflect actual GFR. Performed By: #### 2 4323-8 ####[facility] LABCLIA [id number] [place] [address] Glucose [Mass/Vol] 206 mg/dL High 74-99 [facility] Comment on above: Order Comment: Davi avendaño Type: BLOOD SPECIMENOrdering Facility: [facility] Address: [address] [place] [address] Result Comment: The [place] [employer] (ADA) provides guidance for cutoff values for fasting glucose and random glucose. The ADA defines fasting as no caloric intake for at least 8 hours. Fasting plasma glucose results between 100 to 125 mg/dL indicate increased risk for diabetes (prediabetes).Fasting plasma glucose results greater than or equal to 126 mg/dL meet the criteria for diagnosis of diabetes. In the absence of unequivocal hyperglycemia, results should be confirmed by repeat testing. In a patient with classic symptoms of hyperglycemia or hyperglycemic crisis, random plasma glucose results greater than or equal to 200 mg/dL meet the criteria for diagnosis of diabetes.Reference: Standards of Medical Care in Diabetes 2016, [employer] [place] [employer] Association. Diabetes Care. 2016.39(Suppl 1). Performed By: #### 2 4323-8 ####[facility] LABCLIA [id number] [place] [address] Potassium [Moles/Vol] 3.9 mmol/L Normal 3.7-5.1 [facility] Comment on above: Order Comment: Speci men Type: BLOOD SPECIMENOrdering Facility: [facility] Address: [address] [address] Performed By: #### 2 4323-8 ####[facility] LABCLIA [id number] [place] [address] Protein [Mass/Vol] 6.3 g/dL Normal 6.3-8.0 [facility] Comment on above: Order Comment: Speci men Type: BLOOD SPECIMENOrdering Facility: [facility] Address: [address] [address] Performed By: #### 2 4323-8 ####[facility] LABCLIA [id number] [place] [address] Sodium [Moles/Vol] 143 mmol/L Normal 136-144 [facility] Comment on above: Order Comment: Speci men Type: BLOOD SPECIMENOrdering Facility: [facility] Address: [address] [address] Performed By: #### 2 4323-8 ####[facility] LABCLIA [id number] [place] [address] Urea nitrogen [Mass/Vol] 22 mg/dL Normal 9-24 [facility] Comment on above: Order Comment: Speci men Type: BLOOD SPECIMENOrdering Facility: [facility] Address: [address] [address] Performed By: #### 2 4323-8 ####[facility] LABCLIA [id number] [place] [address] PRBC LEUKOREDUCEDon 07-27-20 22 ABO and Rh group Nom (Bld) Cross Match Result Compatible Unit Blood Type A Pos Unit Number [id number] Status Information Transfused Product ID Red Blood Cells Product Code M7773Z84 Cross Match Result Compatible Unit Blood Type A Pos Unit Number [id number] Status Information Transfused Product ID Red Blood Cells Product Code C4390N78 [facility] Comment on above: Performed By: #### H H #### [facility] [address] [place] [address] Dr. Benito To [facility] 07-25-2022 CNPN Normal [facility] PRBC LEUKOREDUCEDon 07-25-20 22 ABO and Rh group Nom (Bld) Cross Match Result Compatible Unit Blood Type A Pos Unit Number [id number] Status Information Transfused Product ID Red Blood Cells Product Code H2698S35 Cross Match Result Compatible Unit Blood Type A Pos Unit Number [id number] Status Information Transfused Product ID Red Blood Cells Product Code C2567Z10 [facility] Comment on above: Performed By: #### P RBC, TNS #### [facility] [address] [place] [address] Dr. Benito To ABO and Rh group Nom (Bld) Cross Match Result Compatible Unit Blood Type O Neg Unit Number [id number] Status Information Transfused Product ID Red Blood Cells Product Code D4553L76 Cross Match Result Compatible Unit Blood Type O Pos Unit Number [id number] Status Information Transfused Product ID Red Blood Cells Product Code K0418E29 [facility] Comment on above: Performed By: #### T NS, PRBC #### [facility] [address] [place] [address] Dr. Benito To ABO and Rh group Nom (Bld) Cross Match Result Compatible Unit Blood Type A Pos Unit Number [id number] Status Information Transfused Product ID Red Blood Cells Product Code F3021S45 Cross Match Result Compatible Unit Blood Type A Pos Unit Number [id number] Status Information Transfused Product ID Red Blood Cells Product Code J6527P82 [facility] Comment on above: Performed By: #### P RBC, TNS #### [facility] [address] [place] [address] Dr. Benito To PRBC LEUKOREDUCED Cross Match Result Compatible Unit Blood Type A Pos Unit Number [id number] Status Information Transfused Product ID Red Blood Cells Product Code V1364Z21 Normal [facility] Comment on above: Performed By: #### T NS, PRBC #### [facility] [address] [place] [address] Dr. Benito To PRBC LEUKOREDUCED Cross Match Result Compatible Unit Blood Type A Pos Unit Number [id number] Status Information Transfused Product ID Red Blood Cells Product Code S0544R81 Normal [facility] Comment on above: Performed By: #### H GBHCT #### [facility] [address] [place] [address] Dr. Benito To CNPNon 07-24-2022 CNPN Normal [facility] HEMOGLOBIN AND HEMATOCRITon 07-24-2022 Hematocrit (Bld) [Volume fraction] 22.2 % Critically low 42.0-54.0 [facility] Comment on above: Performed By: #### T NS, PRBC #### [facility] [address] [place] [address] Dr. Benito To Hemoglobin (Bld) [Mass/Vol] 7.0 g/dL Critically low 14.0-18.0 [facility] Comment on above: Performed By: #### T NS, PRBC #### [facility] [address] [place] [address] Dr. Benito To TYPE AND SCREENon 07-24-2022 TYPE AND SCREEN Negative Normal [facility] Comment on above: Performed By: #### T NS, PRBC #### [facility] [address] [place] [address] Dr. Benito To CBC W Auto Differential pane l (Bld)on 07-23-2022 Anisocytosis Ql (Bld) Present Normal [facility] Comment on above: Order Comment: Speci men Type: BLOOD SPECIMENOrdering Facility: [facility] Address: [address] [place] [phone] Performed By: #### 5 7021-8 ####[facility] LABCLIA [id number] [address] LABCLIA [id number] [place] [address] Basophils (Bld) [#/Vol] 0.12 10*3/uL High <0.11 [facility] Comment on above: Order Comment: Speci men Type: BLOOD SPECIMENOrdering Facility: [facility] Address: [address] [address] Performed By: #### 5 7021-8 ####[facility] LABCLIA [id number] [address] LABCLIA [id number] [place] [address] Basophils/100 WBC (Bld) 6.0 % Normal [facility] Comment on above: Order Comment: Speci men Type: BLOOD SPECIMENOrdering Facility: [facility] Address: [address] [place] [address] Performed By: #### 5 7021-8 ####[facility] LABCLIA [id number] [address] LABCLIA [id number] [place] [address] Differential cell count method Nom (Bld) Manual Normal [facility] Comment on above: Order Comment: Speci men Type: BLOOD SPECIMENOrdering Facility: [facility] Address: [address] [place] [address] Performed By: #### 5 7021-8 ####[facility] LABCLIA [id number] [address] LABCLIA [id number] [place] [address] Eosinophils (Bld) [#/Vol] 0.02 10*3/uL Normal <0.46 [facility] Comment on above: Order Comment: Speci men Type: BLOOD SPECIMENOrdering Facility: [facility] Address: [address] [place] [address] Performed By: #### 5 7021-8 ####[facility] LABCLIA [id number] [address] LABCLIA [id number] [place] [address] Eosinophils/100 WBC (Bld) 1.0 % Normal [facility] Comment on above: Order Comment: Speci men Type: BLOOD SPECIMENOrdering Facility: [facility] Address: [address] [place] [address] Performed By: #### 5 7021-8 ####[facility] LABCLIA [id number] [address] LABCLIA [id number] [place] [address] Erythrocyte distribution width (RBC) [Ratio] 16.6 % High 11.5-15.0 [facility] Comment on above: Order Comment: Speci men Type: BLOOD SPECIMENOrdering Facility: [facility] Address: [address] [place] [address] Performed By: #### 5 7021-8 ####[facility] LABCLIA [id number] [address] LABCLIA [id number] [place] [address] Giant platelets LM Ql (Bld) Present Normal [facility] Comment on above: Order Comment: Speci men Type: BLOOD SPECIMENOrdering Facility: [facility] Address: [address] [place] [address] Performed By: #### 5 7021-8 ####[facility] LABCLIA [id number] [address] LABCLIA [id number] [place] [address] Hematocrit (Bld) [Volume fraction] 23.4 % Low 39.0-51.0 [facility] Comment on above: Order Comment: Speci men Type: BLOOD SPECIMENOrdering Facility: [facility] Address: [address] [place] [address] Performed By: #### 5 7021-8 ####[facility] LABCLIA [id number] [address] LABCLIA [id number] [place] [address] Hemoglobin (Bld) [Mass/Vol] 7.2 g/dL Low 13.0-17.0 [facility] Comment on above: Order Comment: Speci men Type: BLOOD SPECIMENOrdering Facility: [facility] Address: [address] [place] [address] Performed By: #### 5 7021-8 ####[facility] LABCLIA [id number] [address] LABCLIA [id number] [place] [address] Lymphocytes (Bld) [#/Vol] 0.88 10*3/uL Low 1.00-4.00 [facility] Comment on above: Order Comment: Speci men Type: BLOOD SPECIMENOrdering Facility: [facility] Address: [address] [place] [address] Performed By: #### 5 7021-8 ####[facility] LABCLIA [id number] [address] LABCLIA [id number] [place] [address] Lymphocytes/100 WBC (Bld) 44.0 % Normal [facility] Comment on above: Order Comment: Speci men Type: BLOOD SPECIMENOrdering Facility: [facility] Address: [address] [place] [address] Performed By: #### 5 7021-8 ####[facility] LABCLIA [id number] [address] LABCLIA [id number] [place] [address] MCH (RBC) [Entitic mass] 30.3 pg Normal 26.0-34.0 [facility] Comment on above: Order Comment: Speci men Type: BLOOD SPECIMENOrdering Facility: [facility] Address: [address] [place] [address] Performed By: #### 5 7021-8 ####[facility] LABCLIA [id number] [address] LABCLIA [id number] [place] [address] MCHC (RBC) [Mass/Vol] 30.8 g/dL Normal 30.5-36.0 [facility] Comment on above: Order Comment: Speci men Type: BLOOD SPECIMENOrdering Facility: [facility] Address: [address] [place] [address] Performed By: #### 5 7021-8 ####[facility] LABCLIA [id number] [address] LABCLIA [id number] [place] [address] MCV (RBC) [Entitic vol] 98.3 fL Normal 80.0-100.0 [facility] Comment on above: Order Comment: Speci men Type: BLOOD SPECIMENOrdering Facility: [facility] Address: [address] [place] [address] Performed By: #### 5 7021-8 ####[facility] LABCLIA [id number] [address] LABCLIA [id number] [place] [address] Metamyelocytes/100 WBC (Bld) 1.0 % Normal [facility] Comment on above: Order Comment: Speci men Type: BLOOD SPECIMENOrdering Facility: [facility] Address: [address] [place] [address] Performed By: #### 5 7021-8 ####[facility] LABCLIA [id number] [address] LABCLIA [id number] [place] [address] Monocytes (Bld) [#/Vol] 0.24 10*3/uL Normal <0.87 [facility] Comment on above: Order Comment: Speci men Type: BLOOD SPECIMENOrdering Facility: [facility] Address: [address] [place] [address] Performed By: #### 5 7021-8 ####[facility] LABCLIA [id number] [address] LABCLIA [id number] [place] [address] Monocytes/100 WBC (Bld) 12.0 % Normal [facility] Comment on above: Order Comment: Speci men Type: BLOOD SPECIMENOrdering Facility: [facility] Address: [address] [place] [address] Performed By: #### 5 7021-8 ####[facility] LABCLIA [id number] [address] LABCLIA [id number] [place] [address] Neutrophils (Bld) [#/Vol] 0.72 10*3/uL Low 1.45-7.50 [facility] Comment on above: Order Comment: Speci men Type: BLOOD SPECIMENOrdering Facility: [facility] Address: [address] [place] [address] Performed By: #### 5 7021-8 ####[facility] LABCLIA [id number] [address] LABCLIA [id number] [place] [address] Neutrophils/100 WBC (Bld) 36.0 % Normal [facility] Comment on above: Order Comment: Speci men Type: BLOOD SPECIMENOrdering Facility: [facility] Address: [address] [place] [address] Performed By: #### 5 7021-8 ####[facility] LABCLIA [id number] [address] LABCLIA [id number] [place] [address] Nucleated RBC (Bld) [#/Vol] 10*3/uL Normal <0.01 [facility] Comment on above: Order Comment: Speci men Type: BLOOD SPECIMENOrdering Facility: [facility] Address: [address] [place] [address] Result Comment: This result was previously suppressed from the chart. Performed By: #### 5 7021-8 ####[facility] LABCLIA [id number] [address] LABCLIA [id number] [place] [address] Nucleated RBC/100 WBC (Bld) [Ratio] 0.0 /100 WBC Normal [facility] Comment on above: Order Comment: Speci men Type: BLOOD SPECIMENOrdering Facility: [facility] Address: [address] [place] [address] Performed By: #### 5 7021-8 ####[facility] LABCLIA [id number] [address] LABCLIA [id number] [place] [address] Ovalocytes LM Ql (Bld) Few Normal [facility] Comment on above: Order Comment: Speci men Type: BLOOD SPECIMENOrdering Facility: [facility] Address: [address] [place] [address] Performed By: #### 5 7021-8 ####[facility] LABCLIA [id number] [address] LABCLIA [id number] [place] [address] Platelet mean volume (Bld) [Entitic vol] Normal [facility] Comment on above: Order Comment: Speci men Type: BLOOD SPECIMENOrdering Facility: [facility] Address: [address] [place] [address] Result Comment: Unab le to report Performed By: #### 5 7021-8 ####[facility] LABCLIA [id number] [address] LABCLIA [id number] [place] [address] Platelets (Bld) [#/Vol] 83 10*3/uL Low 150-400 [facility] Comment on above: Order Comment: Speci men Type: BLOOD SPECIMENOrdering Facility: [facility] Address: [address] [place], [place] [address] Performed By: #### 5 7021-8 ####[facility] LABCLIA [id number] [address] LABCLIA [id number] [place] [address] Platelets Estimate (Bld) [#/Vol] Decreased Normal [facility] Comment on above: Order Comment: Speci men Type: BLOOD SPECIMENOrdering Facility: [facility] Address: [address] [address] Performed By: #### 5 7021-8 ####[facility] LABCLIA [id number] [address] LABCLIA [id number] [place] [address] RBC (Bld) [#/Vol] 2.38 10*6/uL Low 4.20-6.00 [facility] Comment on above: Order Comment: Speci men Type: BLOOD SPECIMENOrdering Facility: [facility] Address: [address] [place] [address] Performed By: #### 5 7021-8 ####[facility] LABCLIA [id number] [address] LABCLIA [id number] [place] [address] RED CELL MORPH Reviewed: see result s of individual morphologies Normal [facility] Comment on above: Order Comment: Speci men Type: BLOOD SPECIMENOrdering Facility: [facility] Address: [address] [place] [address] Performed By: #### 5 7021-8 ####[facility] LABCLIA [id number] [address] LABCLIA [id number] [place] [address] WBC (Bld) [#/Vol] 1.99 10*3/uL Low 3.70-11.00 [facility] Comment on above: Order Comment: Speci men Type: BLOOD SPECIMENOrdering Facility: [facility] Address: [address] [place] [address] Result Comment: Resu lts checked and verified.No clot detected. Performed By: #### 5 7021-8 ####[facility] LABCLIA [id number] [address] [place] [address] [facility] LABCLIA [id number] [place] [address] WBC Left Shift Ql (Bld) Present Normal [facility] Comment on above: Order Comment: Speci men Type: BLOOD SPECIMENOrdering Facility: [facility] Address: [address] [address] Performed By: #### 5 7021-8 ####[facility] LABCLIA [id number] [place] [address] [facility] LABCLIA [id number] [place] [address] CNOVSPon 07-23-2022 CNOVSP Normal [facility] CNPNon 07-23-2022 CNPN Normal [facility] Comprehensive metabolic 2000 panelon 07-23-2022 Albumin [Mass/Vol] 3.8 g/dL Low 3.9-4.9 [facility] Comment on above: Order Comment: Speci men Type: BLOOD SPECIMENOrdering Facility: [facility] Address: [address] [address] Performed By: #### 2 4323-8 ####[facility] LABCLIA [id number] [place] [address] ALP [Catalytic activity/Vol] 117 U/L High 38-113 [facility] Comment on above: Order Comment: Speci men Type: BLOOD SPECIMENOrdering Facility: [facility] Address: [address] Performed By: #### 2 4323-8 ####[facility] LABCLIA [id number] [place] [address] ALT [Catalytic activity/Vol] 36 U/L Normal 10-54 [facility] Comment on above: Order Comment: Speci men Type: BLOOD SPECIMENOrdering Facility: [facility] Address: [address] [address] Performed By: #### 2 4323-8 ####[facility] LABCLIA [id number] [place] [address] Anion gap [Moles/Vol] 9 mmol/L Normal 9-18 [facility] Comment on above: Order Comment: Speci men Type: BLOOD SPECIMENOrdering Facility: [facility] Address: [address] [place] [address] Performed By: #### 2 4323-8 ####[facility] LABCLIA [id number] [place] [address] AST [Catalytic activity/Vol] 16 U/L Normal 14-40 [facility] Comment on above: Order Comment: Speci men Type: BLOOD SPECIMENOrdering Facility: [facility] Address: [address] [place] [address] Performed By: #### 2 4323-8 ####[facility] LABCLIA [id number] [place] [address] Bilirubin [Mass/Vol] 1.1 mg/dL Normal 0.2-1.3 [facility] Comment on above: Order Comment: Speci men Type: BLOOD SPECIMENOrdering Facility: [facility] Address: [address] [place] [address] Performed By: #### 2 4323-8 ####[facility] LABCLIA [id number] [place] [address] Calcium [Mass/Vol] 8.9 mg/dL Normal 8.5-10.2 [facility] Comment on above: Order Comment: Speci men Type: BLOOD SPECIMENOrdering Facility: [facility] Address: [address] [place] [address] Performed By: #### 2 4323-8 ####[facility] LABCLIA [id number] [place] [address] Chloride [Moles/Vol] 100 mmol/L Normal 97-105 [facility] Comment on above: Order Comment: Speci men Type: BLOOD SPECIMENOrdering Facility: [facility] Address: [address] [address] Performed By: #### 2 4323-8 ####[facility] LABCLIA [id number] [place] [address] CO2 [Moles/Vol] 32 mmol/L High 22-30 [facility] Comment on above: Order Comment: Speci men Type: BLOOD SPECIMENOrdering Facility: [facility] Address: [address] [address] Performed By: #### 2 4323-8 ####[facility] LABCLIA [id number] [place] [address] Creatinine [Mass/Vol] 1.68 mg/dL High 0.73-1.22 [facility] Comment on above: Order Comment: Speci men Type: BLOOD SPECIMENOrdering Facility: [facility] Address: [address] [place] [address] Performed By: #### 2 4323-8 ####[facility] LABCLIA [id number] [place] [address] ESTIMATED GLOMERULAR FILTRATION RATE 40 mL/min/1.73m??? Low >=60 [facility] Comment on above: Order Comment: Speci men Type: BLOOD SPECIMENOrdering Facility: [facility] Address: [address] [place] [address] Result Comment: Fyae mated Glomerular Filtration Rate (eGFR) is calculated using the 2020 CKD-EPI creatinine equation. This equation utilizes serum creatinine, sex, and age as parameters. The creatinine assay has traceable calibration to isotope dilution-mass spectrometry. Refer to KDIGO guidelines for clinical interpretation. In patients with unstable renal function, e.g. those with acute kidney injury, the eGFR may not accurately reflect actual GFR. Performed By: #### 2 4323-8 ####[facility] LABCLIA [id number] [place] [address] Glucose [Mass/Vol] 143 mg/dL High 74-99 [facility] Comment on above: Order Comment: Speci men Type: BLOOD SPECIMENOrdering Facility: [facility] Address: [address] [place] [phone] Result Comment: The [place] [employer] (ADA) provides guidance for cutoff values for fasting glucose and random glucose. The ADA defines fasting as no caloric intake for at least 8 hours. Fasting plasma glucose results between 100 to 125 mg/dL indicate increased risk for diabetes (prediabetes).Fasting plasma glucose results greater than or equal to 126 mg/dL meet the criteria for diagnosis of diabetes. In the absence of unequivocal hyperglycemia, results should be confirmed by repeat testing. In a patient with classic symptoms of hyperglycemia or hyperglycemic crisis, random plasma glucose results greater than or equal to 200 mg/dL meet the criteria for diagnosis of diabetes.Reference: Standards of Medical Care in Diabetes 2016, [employer] [place] [employer]. Diabetes Care. 2016.39(Suppl 1). Performed By: #### 2 4323-8 ####[facility] LABCLIA [id number] [place] [address] Potassium [Moles/Vol] 4.3 mmol/L Normal 3.7-5.1 [facility] Comment on above: Order Comment: Cristinai men Type: BLOOD SPECIMENOrdering Facility: [facility] Address: [address] Performed By: #### 2 4323-8 ####[facility] LABCLIA [id number] [place] [address] Protein [Mass/Vol] 6.1 g/dL Low 6.3-8.0 [facility] Comment on above: Order Comment: Speci men Type: BLOOD SPECIMENOrdering Facility: [facility] Address: [address] [place] [phone] Performed By: #### 2 4323-8 ####[facility] LABCLIA [id number] [place] [address] Sodium [Moles/Vol] 141 mmol/L Normal 136-144 [facility] Comment on above: Order Comment: Speci men Type: BLOOD SPECIMENOrdering Facility: [facility] Address: [address] [address] Performed By: #### 2 4323-8 ####[facility] LABCLIA [id number] [place] [address] Urea nitrogen [Mass/Vol] 30 mg/dL High 9-24 [facility] Comment on above: Order Comment: Speci men Type: BLOOD SPECIMENOrdering Facility: [facility] Address: [address] [address] Performed By: #### 2 4323-8 ####[facility] LABCLIA [id number] [place] [address] CNPNon 07-18-2022 CNPN Normal [facility] CNOVSPon 07-16-2022 CNOVSP Normal [facility] CNPNon 07-16-2022 CNPN Normal [facility] HEMOGLOBIN AND HEMATOCRITon 07-16-2022 Hematocrit (Bld) [Volume fraction] 24.9 % Critically low 42.0-54.0 [facility] Comment on above: Performed By: #### H H #### [facility] [address] [address] [address] Benito To Hemoglobin (Bld) [Mass/Vol] 7.8 g/dL Critically low 14.0-18.0 [facility] Comment on above: Performed By: #### H H #### [facility] [address] [address] [address] Benito To TYPE AND SCREENon 07-16-2022 TYPE AND SCREEN Negative Normal [facility] Comment on above: Performed By: #### H GBHCT #### [facility] [address] [address] [address] Benito To CBC W Auto Differential pane l (Bld)on 07-15-2022 Anisocytosis Ql (Bld) Present Normal [facility] Comment on above: Order Comment: Speci men Type: BLOOD SPECIMENOrdering Facility: [facility] Address: [address] [address] Performed By: #### 5 7021-8 ####[facility] LABCLIA [id number] [address] LABCLIA [id number] [place] [address] Basophils (Bld) [#/Vol] 0.08 10*3/uL Normal <0.11 [facility] Comment on above: Order Comment: Speci men Type: BLOOD SPECIMENOrdering Facility: [facility] Address: [address] [place] [address] Performed By: #### 5 7021-8 ####[facility] LABCLIA [id number] [address] LABCLIA [id number] [place] [address] Basophils/100 WBC (Bld) 5.0 % Normal [facility] Comment on above: Order Comment: Speci men Type: BLOOD SPECIMENOrdering Facility: [facility] Address: [address] [place] [address] Performed By: #### 5 7021-8 ####[facility] LABCLIA [id number] [address] LABCLIA [id number] [place] [address] Differential cell count method Nom (Bld) Manual Normal [facility] Comment on above: Order Comment: Speci men Type: BLOOD SPECIMENOrdering Facility: [facility] Address: [address] [place] [address] Performed By: #### 5 7021-8 ####[facility] LABCLIA [id number] [address] LABCLIA [id number] [place] [address] Eosinophils (Bld) [#/Vol] 0.02 10*3/uL Normal <0.46 [facility] Comment on above: Order Comment: Speci men Type: BLOOD SPECIMENOrdering Facility: [facility] Address: [address] [place] [address] Performed By: #### 5 7021-8 ####[facility] LABCLIA [id number] [address] LABCLIA [id number] [place] [address] Eosinophils/100 WBC (Bld) 1.0 % Normal [facility] Comment on above: Order Comment: Speci men Type: BLOOD SPECIMENOrdering Facility: [facility] Address: [address] [place] [address] Performed By: #### 5 7021-8 ####[facility] LABCLIA [id number] [address] LABCLIA [id number] [place] [address] Erythrocyte distribution width (RBC) [Ratio] 16.9 % High 11.5-15.0 [facility] Comment on above: Order Comment: Speci men Type: BLOOD SPECIMENOrdering Facility: [facility] Address: [address] [place] [address] Performed By: #### 5 7021-8 ####[facility] LABCLIA [id number] [address] LABCLIA [id number] [place] [address] Giant platelets LM Ql (Bld) Occasional Normal [facility] Comment on above: Order Comment: Speci men Type: BLOOD SPECIMENOrdering Facility: [facility] Address: [address] [place] [address] Performed By: #### 5 7021-8 ####[facility] LABCLIA [id number] [address] LABCLIA [id number] [place] [address] Hematocrit (Bld) [Volume fraction] 25.1 % Low 39.0-51.0 [facility] Comment on above: Order Comment: Speci men Type: BLOOD SPECIMENOrdering Facility: [facility] Address: [address] [place] [address] Performed By: #### 5 7021-8 ####[facility] LABCLIA [id number] [address] LABCLIA [id number] [place] [address] Hemoglobin (Bld) [Mass/Vol] 7.9 g/dL Low 13.0-17.0 [facility] Comment on above: Order Comment: Speci men Type: BLOOD SPECIMENOrdering Facility: [facility] Address: [address] [place] [address] Performed By: #### 5 7021-8 ####[facility] LABCLIA [id number] [address] LABCLIA [id number] [place] [address] Lymphocytes (Bld) [#/Vol] 0.66 10*3/uL Low 1.00-4.00 [facility] Comment on above: Order Comment: Speci men Type: BLOOD SPECIMENOrdering Facility: [facility] Address: [address] [place] [address] Performed By: #### 5 7021-8 ####[facility] LABCLIA [id number] [address] LABCLIA [id number] [place] [address] Lymphocytes/100 WBC (Bld) 40.0 % Normal [facility] Comment on above: Order Comment: Speci men Type: BLOOD SPECIMENOrdering Facility: [facility] Address: [address] [address] Performed By: #### 5 7021-8 ####[facility] LABCLIA [id number] [address] LABCLIA [id number] [place] [address] MCH (RBC) [Entitic mass] 30.9 pg Normal 26.0-34.0 [facility] Comment on above: Order Comment: Speci men Type: BLOOD SPECIMENOrdering Facility: [facility] Address: [address] [place] [address] Performed By: #### 5 7021-8 ####[facility] LABCLIA [id number] [address] LABCLIA [id number] [place] [address] MCHC (RBC) [Mass/Vol] 31.5 g/dL Normal 30.5-36.0 [facility] Comment on above: Order Comment: Speci men Type: BLOOD SPECIMENOrdering Facility: [facility] Address: [address] [place] [address] Performed By: #### 5 7021-8 ####[facility] LABCLIA [id number] [address] LABCLIA [id number] [place] [address] MCV (RBC) [Entitic vol] 98.0 fL Normal 80.0-100.0 [facility] Comment on above: Order Comment: Speci men Type: BLOOD SPECIMENOrdering Facility: [facility] Address: [address] [place], [place] [address] Performed By: #### 5 7021-8 ####[facility] LABCLIA [id number] [facility] [address] LABCLIA [id number] [place] [address] Monocytes (Bld) [#/Vol] 0.17 10*3/uL Normal <0.87 [facility] Comment on above: Order Comment: Speci men Type: BLOOD SPECIMENOrdering Facility: [facility] Address: [address] [place] [address] Performed By: #### 5 7021-8 ####[facility] LABCLIA [id number] [address] LABCLIA [id number] [place] [address] Monocytes/100 WBC (Bld) 10.0 % Normal [facility] Comment on above: Order Comment: Speci men Type: BLOOD SPECIMENOrdering Facility: [facility] Address: [address] [place] [address] Performed By: #### 5 7021-8 ####[facility] LABCLIA [id number] [address] LABCLIA [id number] [place] [address] Neutrophils (Bld) [#/Vol] 0.73 10*3/uL Low 1.45-7.50 [facility] Comment on above: Order Comment: Speci men Type: BLOOD SPECIMENOrdering Facility: [facility] Address: [address] [place], [place] [address] Performed By: #### 5 7021-8 ####[facility] LABCLIA [id number] [address] LABCLIA [id number] [place] [address] Neutrophils/100 WBC (Bld) 44.0 % Normal [facility] Comment on above: Order Comment: Speci men Type: BLOOD SPECIMENOrdering Facility: [facility] Address: [address] [place] [address] Performed By: #### 5 7021-8 ####[facility] LABCLIA [id number] [address] LABCLIA [id number] [place] [address] Nucleated RBC (Bld) [#/Vol] 10*3/uL Normal <0.01 [facility] Comment on above: Order Comment: Speci men Type: BLOOD SPECIMENOrdering Facility: [facility] Address: [address] [place] [address] Result Comment: This result was previously suppressed from the chart. Performed By: #### 5 7021-8 ####[facility] LABCLIA [id number] [address] LABCLIA [id number] [place] [address] Nucleated RBC/100 WBC (Bld) [Ratio] 0.0 /100 WBC Normal [facility] Comment on above: Order Comment: Speci men Type: BLOOD SPECIMENOrdering Facility: [facility] Address: [address] [place] [address] Performed By: #### 5 7021-8 ####[facility] LABCLIA [id number] [address] LABCLIA [id number] [place] [address] Ovalocytes LM Ql (Bld) Few Normal [facility] Comment on above: Order Comment: Speci men Type: BLOOD SPECIMENOrdering Facility: [facility] Address: [address] [place] [address] Performed By: #### 5 7021-8 ####[facility] LABCLIA [id number] [address] [facility] LABCLIA [id number] [place] [address] Platelet mean volume (Bld) [Entitic vol] Normal [facility] Comment on above: Order Comment: Speci men Type: BLOOD SPECIMENOrdering Facility: [facility] Address: [address] [place] [address] Result Comment: Unab le to Report. Performed By: #### 5 7021-8 ####[facility] LABCLIA [id number] [address] LABCLIA [id number] [place] [address] Platelets (Bld) [#/Vol] 65 10*3/uL Low 150-400 [facility] Comment on above: Order Comment: Speci men Type: BLOOD SPECIMENOrdering Facility: [facility] Address: [address] [place] [address] Performed By: #### 5 7021-8 ####[facility] LABCLIA [id number] [address] LABCLIA [id number] [place] [address] Platelets Estimate (Bld) [#/Vol] Decreased Normal [facility] Comment on above: Order Comment: Speci men Type: BLOOD SPECIMENOrdering Facility: [facility] Address: [address] [place] [address] Performed By: #### 5 7021-8 ####[facility] LABCLIA [id number] [address] LABCLIA [id number] [place] [address] RBC (Bld) [#/Vol] 2.56 10*6/uL Low 4.20-6.00 [facility] Comment on above: Order Comment: Speci men Type: BLOOD SPECIMENOrdering Facility: [facility] Address: [facility] [address] Performed By: #### 5 7021-8 ####[facility] LABCLIA [id number] [address] LABCLIA [id number] [place] [address] RED CELL MORPH Reviewed: see result s of individual morphologies Normal [facility] Comment on above: Order Comment: Speci men Type: BLOOD SPECIMENOrdering Facility: [facility] Address: [address] [address] Performed By: #### 5 7021-8 ####[facility] LABCLIA [id number] [address] LABCLIA [id number] [place] [address] WBC (Bld) [#/Vol] 1.65 10*3/uL Low 3.70-11.00 [facility] Comment on above: Order Comment: Speci men Type: BLOOD SPECIMENOrdering Facility: [facility] Address: [address] [place], [place] [address] Performed By: #### 5 7021-8 ####[facility] LABCLIA [id number] [address] LABCLIA [id number] [place] [address] CNOVSPon 07-15-2022 CNOVSP Normal [facility] CNPNon 07-15-2022 CNPN Normal [facility] Comprehensive metabolic 2000 panelon 07-15-2022 Albumin [Mass/Vol] 3.8 g/dL Low 3.9-4.9 [facility] Comment on above: Order Comment: Speci men Type: BLOOD SPECIMENOrdering Facility: [facility] Address: [address] [place], [place] [address] Performed By: #### 2 4323-8, 2531-0 ####[facility] LABCLIA [id number] [place] [address] ALP [Catalytic activity/Vol] 114 U/L High 38-113 [facility] Comment on above: Order Comment: Speci men Type: BLOOD SPECIMENOrdering Facility: [facility] Address: [address] [place] [address] Performed By: #### 2 432-8, 2531-0 ####[facility] LABCLIA [id number] [place] [address] ALT [Catalytic activity/Vol] 39 U/L Normal 10-54 [facility] Comment on above: Order Comment: Speci men Type: BLOOD SPECIMENOrdering Facility: [facility] Address: [address] [place] [address] Performed By: #### 2 4328, 2531-0 ####[facility] LABCLIA [id number] [place] [address] Anion gap [Moles/Vol] 10 mmol/L Normal 9-18 [facility] Comment on above: Order Comment: Speci men Type: BLOOD SPECIMENOrdering Facility: [facility] Address: [address] [place] [address] Performed By: #### 2 4328, 2531-0 ####[facility] LABCLIA [id number] [place] [address] AST [Catalytic activity/Vol] 18 U/L Normal 14-40 [facility] Comment on above: Order Comment: Speci men Type: BLOOD SPECIMENOrdering Facility: [facility] Address: [address] [place] [address] Performed By: #### 2 4328, 253-0 ####[facility] LABCLIA [id number] [place] [address] Bilirubin [Mass/Vol] 0.9 mg/dL Normal 0.2-1.3 [facility] Comment on above: Order Comment: Speci men Type: BLOOD SPECIMENOrdering Facility: [facility] Address: [address] [address] Performed By: #### 2 4323-8, 2531-0 ####[facility] LABCLIA [id number] [place] [address] Calcium [Mass/Vol] 9.0 mg/dL Normal 8.5-10.2 [facility] Comment on above: Order Comment: Speci men Type: BLOOD SPECIMENOrdering Facility: [facility] Address: [address] [address] Performed By: #### 2 432-8, 2531-0 ####[facility] LABCLIA [id number] [place] [address] Chloride [Moles/Vol] 104 mmol/L Normal 97-105 [facility] Comment on above: Order Comment: Speci men Type: BLOOD SPECIMENOrdering Facility: [facility] Address: [address] [address] Performed By: #### 2 43238, 2531-0 ####[facility] LABCLIA [id number] [place] [address] CO2 [Moles/Vol] 32 mmol/L High 22-30 [facility] Comment on above: Order Comment: Speci men Type: BLOOD SPECIMENOrdering Facility: [facility] Address: [address] Performed By: #### 2 4323-8, 2531-0 ####[facility] LABCLIA [id number] [place] [address] Creatinine [Mass/Vol] 1.56 mg/dL High 0.73-1.22 [facility] Comment on above: Order Comment: Speci men Type: BLOOD SPECIMENOrdering Facility: [facility] Address: [address] [address] Performed By: #### 2 4328, ####[facility] LABCLIA [id number] [place] [address] ESTIMATED GLOMERULAR FILTRATION RATE 44 mL/min/1.73m??? Low >=60 [facility] Comment on above: Order Comment: Davi avendaño Type: BLOOD SPECIMENOrdering Facility: [facility] Address: [address] [place] [address] Result Comment: Faye mated Glomerular Filtration Rate (eGFR) is calculated using the 2020 CKD-EPI creatinine equation. This equation utilizes serum creatinine, sex, and age as parameters. The creatinine assay has traceable calibration to isotope dilution-mass spectrometry. Refer to KDIGO guidelines for clinical interpretation. In patients with unstable renal function, e.g. those with acute kidney injury, the eGFR may not accurately reflect actual GFR. Performed By: #### 2 4328, ####[facility] LABIA [id number] [place] [address] Glucose [Mass/Vol] 147 mg/dL High 74-99 [facility] Comment on above: Order Comment: Davi avendaño Type: BLOOD SPECIMENOrdering Facility: [facility] Address: [address] [place] [address] Result Comment: The [place] [employer] (ADA) provides guidance for cutoff values for fasting glucose and random glucose. The ADA defines fasting as no caloric intake for at least 8 hours. Fasting plasma glucose results between 100 to 125 mg/dL indicate increased risk for diabetes (prediabetes).Fasting plasma glucose results greater than or equal to 126 mg/dL meet the criteria for diagnosis of diabetes. In the absence of unequivocal hyperglycemia, results should be confirmed by repeat testing. In a patient with classic symptoms of hyperglycemia or hyperglycemic crisis, random plasma glucose results greater than or equal to 200 mg/dL meet the criteria for diagnosis of diabetes.Reference: Standards of Medical Care in Diabetes 2016, [employer] [place] [employer]. Diabetes Care. 2016.39(Suppl 1). Performed By: #### 2 4323-8, 0 ####[facility] LABIA [id number] [place] [address] Potassium [Moles/Vol] 4.1 mmol/L Normal 3.7-5.1 [facility] Comment on above: Order Comment: Speci men Type: BLOOD SPECIMENOrdering Facility: [facility] Address: [address] [place] [address] Performed By: #### 2 4323-8, 2531-0 ####[facility] LABCLIA [id number] [place] [address] Protein [Mass/Vol] 6.3 g/dL Normal 6.3-8.0 [facility] Comment on above: Order Comment: Speci men Type: BLOOD SPECIMENOrdering Facility: [facility] Address: [address] [place] [address] Performed By: #### 2 4323-8, 2531-0 ####[facility] LABCLIA [id number] [place] [address] Sodium [Moles/Vol] 146 mmol/L High 136-144 [facility] Comment on above: Order Comment: Speci men Type: BLOOD SPECIMENOrdering Facility: [facility] Address: [address] [place] [address] Performed By: #### 2 43238, 2531-0 ####[facility] LABCLIA [id number] [place] [address] Urea nitrogen [Mass/Vol] 24 mg/dL Normal 9-24 [facility] Comment on above: Order Comment: Speci men Type: BLOOD SPECIMENOrdering Facility: [facility] Address: [address] [place] [address] Performed By: #### 2 4323-8, 2531-0 ####[facility] LABCLIA [id number] [place] [address] LDH SerPl-cCncon 07-15-2022 LDH [Catalytic activity/Vol] 203 U/L Normal 135-225 [facility] Comment on above: Order Comment: Speci men Type: BLOOD SPECIMENOrdering Facility: [facility] Address: [address] [address] Result Comment: Hemo lysis present. The origin of the hemolysis, in vitro versus an in vivo hemolytic process, cannot be distinguished via this assay alone. In vitro hemolysis may lead to non-physiological (spurious) elevation in lactate dehydrogenase (LDH) results. Theresult should be interpreted in context of the clinical setting and other test results. Suggest reorder as clinically indicated. Performed By: #### 2 4323-8, 2532-0 ####[facility] LABCLIA [id number] [place] [address] CNPNon 07-11-2022 CNPN Normal [facility] TYPE AND SCREENon 07-09-2022 TYPE AND SCREEN Negative Normal [facility] Comment on above: Performed By: #### P RBC, TNS #### [facility] [address] [place] [address] Dr. Benito To CBC W Auto Differential pane l (Bld)on 07-08-2022 Anisocytosis Ql (Bld) Present Normal [facility] Comment on above: Order Comment: Speci men Type: BLOOD SPECIMENOrdering Facility: [facility] Address: [address] [place] [address] Performed By: #### 5 7021-8 ####[facility] LABCLIA [id number] [address] LABCLIA [id number] [place] [id number] Basophils (Bld) [#/Vol] 0.10 10*3/uL Normal <0.11 [facility] Comment on above: Order Comment: Speci men Type: BLOOD SPECIMENOrdering Facility: [facility] Address: [address] [place] [address] Performed By: #### 5 7021-8 ####[facility] LABCLIA [id number] [address] LABCLIA [id number] [place] [address] Basophils/100 WBC (Bld) 6.0 % Normal [facility] Comment on above: Order Comment: Speci men Type: BLOOD SPECIMENOrdering Facility: [facility] Address: [address] [place] [address] Performed By: #### 5 7021-8 ####[facility] LABCLIA [id number] [address] LABCLIA [id number] [place] [address] Differential cell count method Nom (Bld) Manual Normal [facility] Comment on above: Order Comment: Speci men Type: BLOOD SPECIMENOrdering Facility: [facility] Address: [address] [place] [address] Performed By: #### 5 7021-8 ####[facility] LABCLIA [id number] [address] LABCLIA [id number] [place] [address] Eosinophils (Bld) [#/Vol] 0.05 10*3/uL Normal <0.46 [facility] Comment on above: Order Comment: Speci men Type: BLOOD SPECIMENOrdering Facility: [facility] Address: [address] [place] [address] Performed By: #### 5 7021-8 ####[facility] LABCLIA [id number] [address] LABCLIA [id number] [place] [address] Eosinophils/100 WBC (Bld) 3.0 % Normal [facility] Comment on above: Order Comment: Speci men Type: BLOOD SPECIMENOrdering Facility: [facility] Address: [address] [place] [address] Performed By: #### 5 7021-8 ####[facility] LABCLIA [id number] [place] [address] [facility] LABCLIA [id number] [place] [address] Erythrocyte distribution width (RBC) [Ratio] 18.2 % High 11.5-15.0 [facility] Comment on above: Order Comment: Speci men Type: BLOOD SPECIMENOrdering Facility: [facility] Address: [address] [place] [address] Performed By: #### 5 7021-8 ####[facility] LABCLIA [id number] [address] LABCLIA [id number] [place] [address] Hematocrit (Bld) [Volume fraction] 23.2 % Low 39.0-51.0 [facility] Comment on above: Order Comment: Speci men Type: BLOOD SPECIMENOrdering Facility: [facility] Address: [address] [place] [address] Performed By: #### 5 7021-8 ####[facility] LABCLIA [id number] [address] LABCLIA [id number] [place] [address] Hemoglobin (Bld) [Mass/Vol] 7.4 g/dL Low 13.0-17.0 [facility] Comment on above: Order Comment: Speci men Type: BLOOD SPECIMENOrdering Facility: [facility] Address: [address] [place] [address] Performed By: #### 5 7021-8 ####[facility] LABCLIA [id number] [address] LABCLIA [id number] [place] [address] Lymphocytes (Bld) [#/Vol] 0.69 10*3/uL Low 1.00-4.00 [facility] Comment on above: Order Comment: Speci men Type: BLOOD SPECIMENOrdering Facility: [facility] Address: [address] [place] [address] Performed By: #### 5 7021-8 ####[facility] LABCLIA [id number] [address] LABCLIA [id number] [place] [address] Lymphocytes/100 WBC (Bld) 42.0 % Normal [facility] Comment on above: Order Comment: Speci men Type: BLOOD SPECIMENOrdering Facility: [facility] Address: [address] [place] [address] Performed By: #### 5 7021-8 ####[facility] LABCLIA [id number] [address] LABCLIA [id number] [place] [address] MCH (RBC) [Entitic mass] 31.8 pg Normal 26.0-34.0 [facility] Comment on above: Order Comment: Speci men Type: BLOOD SPECIMENOrdering Facility: [facility] Address: [address] [place], [place] [address] Performed By: #### 5 7021-8 ####[facility] LABCLIA [id number] [address] LABCLIA [id number] [place] [address] MCHC (RBC) [Mass/Vol] 31.9 g/dL Normal 30.5-36.0 [facility] Comment on above: Order Comment: Speci men Type: BLOOD SPECIMENOrdering Facility: [facility] Address: [address] [place], [place] [address] Performed By: #### 5 7021-8 ####[facility] LABCLIA [id number] [address] LABCLIA [id number] [place] [address] MCV (RBC) [Entitic vol] 99.6 fL Normal 80.0-100.0 [facility] Comment on above: Order Comment: Speci men Type: BLOOD SPECIMENOrdering Facility: [facility] Address: [address] [address] Performed By: #### 5 7021-8 ####[facility] LABCLIA [id number] [address] LABCLIA [id number] [place] [address] Monocytes (Bld) [#/Vol] 0.15 10*3/uL Normal <0.87 [facility] Comment on above: Order Comment: Speci men Type: BLOOD SPECIMENOrdering Facility: [facility] Address: [address] [place] [address] Performed By: #### 5 7021-8 ####[facility] LABCLIA [id number] [address] [address] LABCLIA [id number] [place] [address] Monocytes/100 WBC (Bld) 9.0 % Normal [facility] Comment on above: Order Comment: Speci men Type: BLOOD SPECIMENOrdering Facility: [facility] Address: [address] [place] [address] Performed By: #### 5 7021-8 ####[facility] LABCLIA [id number] [place] [id number] [facility] LABCLIA [id number] [place] [address] Neutrophils (Bld) [#/Vol] 0.66 10*3/uL Low 1.45-7.50 [facility] Comment on above: Order Comment: Speci men Type: BLOOD SPECIMENOrdering Facility: [facility] Address: [address] [place] [address] Performed By: #### 5 7021-8 ####[facility] LABCLIA [id number] [address] LABCLIA [id number] [place] [address] Neutrophils/100 WBC (Bld) 40.0 % Normal [facility] Comment on above: Order Comment: Speci men Type: BLOOD SPECIMENOrdering Facility: [facility] Address: [address] [place] [address] Performed By: #### 5 7021-8 ####[facility] LABCLIA [id number] [address] LABCLIA [id number] [place] [address] Nucleated RBC (Bld) [#/Vol] 10*3/uL Normal <0.01 [facility] Comment on above: Order Comment: Speci men Type: BLOOD SPECIMENOrdering Facility: [facility] Address: [address] [place] [address] Result Comment: This result was previously suppressed from the chart. Performed By: #### 5 7021-8 ####[facility] LABCLIA [id number] [address] LABCLIA [id number] [place] [address] Nucleated RBC/100 WBC (Bld) [Ratio] 0.0 /100 WBC Normal [facility] Comment on above: Order Comment: Speci men Type: BLOOD SPECIMENOrdering Facility: [facility] Address: [address] [place] [address] Performed By: #### 5 7021-8 ####[facility] LABCLIA [id number] [address] LABCLIA [id number] [place] [address] Ovalocytes LM Ql (Bld) Few Normal [facility] Comment on above: Order Comment: Speci men Type: BLOOD SPECIMENOrdering Facility: [facility] Address: [address] [place] [address] Performed By: #### 5 7021-8 ####[facility] LABCLIA [id number] [address] LABCLIA [id number] [place] [address] Platelet mean volume (Bld) [Entitic vol] Normal [facility] Comment on above: Order Comment: Speci men Type: BLOOD SPECIMENOrdering Facility: [facility] Address: [address] [place] [address] Result Comment: Unab le to Report. Performed By: #### 5 7021-8 ####[facility] LABCLIA [id number] [address] LABCLIA [id number] [place] [address] Platelets (Bld) [#/Vol] 65 10*3/uL Low 150-400 [facility] Comment on above: Order Comment: Speci men Type: BLOOD SPECIMENOrdering Facility: [facility] Address: [address] [place] [address] Result Comment: No c lot detected.Results checked and verified. Performed By: #### 5 7021-8 ####[facility] LABCLIA [id number] [address] LABCLIA [id number] [place] [address] Platelets Estimate (Bld) [#/Vol] Decreased Normal [facility] Comment on above: Order Comment: Speci men Type: BLOOD SPECIMENOrdering Facility: [facility] Address: [address] [place] [address] Performed By: #### 5 7021-8 ####[facility] LABCLIA [id number] [address] LABCLIA [id number] [place] [address] RBC (Bld) [#/Vol] 2.33 10*6/uL Low 4.20-6.00 [facility] Comment on above: Order Comment: Speci men Type: BLOOD SPECIMENOrdering Facility: [facility] Address: [address] [place] [address] Performed By: #### 5 7021-8 ####[facility] LABCLIA [id number] [address] LABCLIA [id number] [place] [address] RBC FRAGMENTS Few Abnormal None Seen [facility] Comment on above: Order Comment: Speci men Type: BLOOD SPECIMENOrdering Facility: [facility] Address: [address] [place] [address] Performed By: #### 5 7021-8 ####[facility] LABCLIA [id number] [address] LABCLIA [id number] [place] [address] RED CELL MORPH Reviewed: see result s of individual morphologies Normal [facility] Comment on above: Order Comment: Speci men Type: BLOOD SPECIMENOrdering Facility: [facility] Address: [address] [place], [place] [address] Performed By: #### 5 7021-8 ####[facility] LABCLIA [id number] [place] [id number] [facility] LABCLIA [id number] [place] [address] WBC (Bld) [#/Vol] 1.64 10*3/uL Low 3.70-11.00 [facility] Comment on above: Order Comment: Speci men Type: BLOOD SPECIMENOrdering Facility: [facility] Address: [address] [place] [address] Result Comment: No c lot detected.Results checked and verified. Performed By: #### 5 7021-8 ####[facility] LABCLIA [id number] [address] LABCLIA [id number] [place] [address] CNOVSPon 07-08-2022 CNOVSP Normal [facility] CNPNon 07-08-2022 CNPN Normal [facility] Comprehensive metabolic 2000 panelon 07-08-2022 Albumin [Mass/Vol] 3.8 g/dL Low 3.9-4.9 [facility] Comment on above: Order Comment: Speci men Type: BLOOD SPECIMENOrdering Facility: [facility] Address: [address] [place] [address] Performed By: #### 2 532-0, 74190-7 ####[facility] LABCLIA [id number] [place] [address] ALP [Catalytic activity/Vol] 117 U/L High 38-113 [facility] Comment on above: Order Comment: Speci men Type: BLOOD SPECIMENOrdering Facility: [facility] Address: [address] [place] [address] Performed By: #### 2 532-0, 43390-3 ####[facility] LABCLIA [id number] [place] [address] ALT [Catalytic activity/Vol] 47 U/L Normal 10-54 [facility] Comment on above: Order Comment: Speci men Type: BLOOD SPECIMENOrdering Facility: [facility] Address: [address] [place] [address] Performed By: #### 2 532-0, ####[facility] LABCLIA [id number] [place] [address] Anion gap [Moles/Vol] 8 mmol/L Low 9-18 [facility] Comment on above: Order Comment: Speci men Type: BLOOD SPECIMENOrdering Facility: [facility] Address: [address] [place] [address] Performed By: #### 2 532-0, ####[facility] LABCLIA [id number] [place] [address] AST [Catalytic activity/Vol] 22 U/L Normal 14-40 [facility] Comment on above: Order Comment: Speci men Type: BLOOD SPECIMENOrdering Facility: [facility] Address: [address] [place] [address] Performed By: #### 2 532-0, ####[facility] LABCLIA [id number] [place] [address] Bilirubin [Mass/Vol] 0.8 mg/dL Normal 0.2-1.3 [facility] Comment on above: Order Comment: Speci men Type: BLOOD SPECIMENOrdering Facility: [facility] Address: [address] [place] [address] Performed By: #### 2 532-0, ####[facility] LABCLIA [id number] [place] [address] Calcium [Mass/Vol] 8.8 mg/dL Normal 8.5-10.2 [facility] Comment on above: Order Comment: Speci men Type: BLOOD SPECIMENOrdering Facility: [facility] Address: [address] [place] [address] Performed By: #### 2 532-0, ####[facility] LABCLIA [id number] [place] [address] Chloride [Moles/Vol] 103 mmol/L Normal 97-105 [facility] Comment on above: Order Comment: Speci men Type: BLOOD SPECIMENOrdering Facility: [facility] Address: [address] [place] [address] Performed By: #### 2 532-0, 47895-5 ####[facility] LABCLIA [id number] [place] [address] CO2 [Moles/Vol] 32 mmol/L High 22-30 [facility] Comment on above: Order Comment: Speci men Type: BLOOD SPECIMENOrdering Facility: [facility] Address: [address] [place] [address] Performed By: #### 2 532-0, 46564-3 ####[facility] LABCLIA [id number] [place] [address] Creatinine [Mass/Vol] 1.55 mg/dL High 0.73-1.22 [facility] Comment on above: Order Comment: Speci men Type: BLOOD SPECIMENOrdering Facility: [facility] Address: [address] [place] [address] Performed By: #### 2 532-0, 48295-0 ####[facility] LABCLIA [id number] [place] [address] ESTIMATED GLOMERULAR FILTRATION RATE 44 mL/min/1.73m??? Low >=60 [facility] Comment on above: Order Comment: Speci men Type: BLOOD SPECIMENOrdering Facility: [facility] Address: [address] [place] [address] Result Comment: Faye mated Glomerular Filtration Rate (eGFR) is calculated using the 2020 CKD-EPI creatinine equation. This equation utilizes serum creatinine, sex, and age as parameters. The creatinine assay has traceable calibration to isotope dilution-mass spectrometry. Refer to KDIGO guidelines for clinical interpretation. In patients with unstable renal function, e.g. those with acute kidney injury, the eGFR may not accurately reflect actual GFR. Performed By: #### 2 532-0, 13583-4 ####[facility] LABCLIA [id number] [place] [address] Glucose [Mass/Vol] 130 mg/dL High 74-99 [facility] Comment on above: Order Comment: Speci men Type: BLOOD SPECIMENOrdering Facility: [facility] Address: [address] [place] [address] Result Comment: The [place] [employer] (ADA) provides guidance for cutoff values for fasting glucose and random glucose. The ADA defines fasting as no caloric intake for at least 8 hours. Fasting plasma glucose results between 100 to 125 mg/dL indicate increased risk for diabetes (prediabetes).Fasting plasma glucose results greater than or equal to 126 mg/dL meet the criteria for diagnosis of diabetes. In the absence of unequivocal hyperglycemia, results should be confirmed by repeat testing. In a patient with classic symptoms of hyperglycemia or hyperglycemic crisis, random plasma glucose results greater than or equal to 200 mg/dL meet the criteria for diagnosis of diabetes.Reference: Standards of Medical Care in Diabetes 2016, [employer] [place] [employer]. Diabetes Care. 2016.39(Suppl 1). Performed By: #### 2 532-0, 49641-1 ####[facility] LABCLIA [id number] [place] [address] Potassium [Moles/Vol] 4.1 mmol/L Normal 3.7-5.1 [facility] Comment on above: Order Comment: Speci men Type: BLOOD SPECIMENOrdering Facility: [facility] Address: [address] [address] Performed By: #### 2 532-0, 70303-0 ####[facility] LABIA [id number] [place] [address] Protein [Mass/Vol] 6.1 g/dL Low 6.3-8.0 [facility] Comment on above: Order Comment: Speci men Type: BLOOD SPECIMENOrdering Facility: [facility] Address: [address] [place] [address] Performed By: #### 2 532-0, 24122-2 ####[facility] LABCLIA [id number] [place] [address] Sodium [Moles/Vol] 143 mmol/L Normal 136-144 [facility] Comment on above: Order Comment: Speci men Type: BLOOD SPECIMENOrdering Facility: [facility] Address: [address] [place] [address] Performed By: #### 2 532-0, 64439-6 ####[facility] LABCLIA [id number] [place] [address] Urea nitrogen [Mass/Vol] 20 mg/dL Normal 9-24 [facility] Comment on above: Order Comment: Speci men Type: BLOOD SPECIMENOrdering Facility: [facility] Address: [address] [place] [address] Performed By: #### 2 532-0, 68218-4 ####[facility] LABCLIA [id number] [place] [address] HEMOGRAM AND PLATELon 2021 Hematocrit (Bld) [Volume fraction] 22.7 % Critically low 42.0-54.0 [facility] Comment on above: Performed By: #### T NS, PRBC #### [facility] [address] [place] [address] Dr. Benito To Hemoglobin (Bld) [Mass/Vol] 7.2 g/dL Critically low 14.0-18.0 [facility] Comment on above: Performed By: #### T NS, PRBC #### [facility] [address] [place] [address] [address] Benito To MCH (RBC) [Entitic mass] 31.3 pg Normal 25.9-34.0 [facility] Comment on above: Performed By: #### T NS, PRBC #### [facility] [address] [place] [address] [address] Benito To MCHC (RBC) [Mass/Vol] 31.7 g/dL Normal 29.9-35.2 [facility] Comment on above: Performed By: #### T NS, PRBC #### [facility] [address] [place] [address] [address] Benito To MCV (RBC) [Entitic vol] 98.7 fL Critically high 80.0-94.0 [facility] Comment on above: Performed By: #### T NS, PRBC #### [facility] [address] [place] [address] [address] Benito To PLT 66 103/ul Critically low 150-450 [facility] Comment on above: Performed By: #### T NS, PRBC #### [facility] [address] [place] [address] [address] Benito To RBC 2.30 106/ul Critically low 4.70-6.10 [facility] Comment on above: Performed By: #### T NS, PRBC #### [facility] [address] [place] [address] [address] Benito To WBC 1.7 103/ul Critically low 4.0-11.0 [facility] Comment on above: Performed By: #### T NS, PRBC #### [facility] [address] [place] [address] Dr. Benito To LDH SerPl-cCncon 07-08-2022 LDH [Catalytic activity/Vol] 187 U/L Normal 135-225 [facility] Comment on above: Order Comment: Speci men Type: BLOOD SPECIMENOrdering Facility: [facility] Address: [address] [place] [address] Performed By: #### 2 532-0, 88111-8 ####[facility] LABCLIA [id number] [place] [address] CBC W Auto Differential pane l (Bld)on 07-01-2022 Anisocytosis Ql (Bld) Present Normal [facility] Comment on above: Order Comment: Speci men Type: BLOOD SPECIMENOrdering Facility: [facility] Address: [address] [place] [address] Performed By: #### 5 7021-8 ####[facility] LABCLIA [id number] [address] LABCLIA [id number] [place] [address] Basophils (Bld) [#/Vol] 0.13 10*3/uL High <0.11 [facility] Comment on above: Order Comment: Speci men Type: BLOOD SPECIMENOrdering Facility: [facility] Address: [address] [place] [address] Performed By: #### 5 7021-8 ####[facility] LABCLIA [id number] [address] LABCLIA [id number] [place] [address] Basophils/100 WBC (Bld) 8.0 % Normal [facility] Comment on above: Order Comment: Speci men Type: BLOOD SPECIMENOrdering Facility: [facility] Address: [address] [place] [address] Performed By: #### 5 7021-8 ####[facility] LABCLIA [id number] [address] LABCLIA [id number] [place] [address] Differential cell count method Nom (Bld) Manual Normal [facility] Comment on above: Order Comment: Speci men Type: BLOOD SPECIMENOrdering Facility: [facility] Address: [address] [place] [address] Performed By: #### 5 7021-8 ####[facility] LABCLIA [id number] [address] LABCLIA [id number] [place] [address] Eosinophils (Bld) [#/Vol] 0.02 10*3/uL Normal <0.46 [facility] Comment on above: Order Comment: Speci men Type: BLOOD SPECIMENOrdering Facility: [facility] Address: [address] [place] [address] Performed By: #### 5 7021-8 ####[facility] LABCLIA [id number] [address] LABCLIA [id number] [place] [address] Eosinophils/100 WBC (Bld) 1.0 % Normal [facility] Comment on above: Order Comment: Speci men Type: BLOOD SPECIMENOrdering Facility: [facility] Address: [address] [place] [address] Performed By: #### 5 7021-8 ####[facility] LABCLIA [id number] [address] LABCLIA [id number] [place] [address] Erythrocyte distribution width (RBC) [Ratio] 17.9 % High 11.5-15.0 [facility] Comment on above: Order Comment: Speci men Type: BLOOD SPECIMENOrdering Facility: [facility] Address: [address] [place] [address] Performed By: #### 5 7021-8 ####[facility] LABCLIA [id number] [address] LABCLIA [id number] [place] [address] Hematocrit (Bld) [Volume fraction] 25.8 % Low 39.0-51.0 [facility] Comment on above: Order Comment: Speci men Type: BLOOD SPECIMENOrdering Facility: [facility] Address: [address] [place] [address] Performed By: #### 5 7021-8 ####[facility] LABCLIA [id number] [address] LABCLIA [id number] [place] [address] Hemoglobin (Bld) [Mass/Vol] 8.3 g/dL Low 13.0-17.0 [facility] Comment on above: Order Comment: Speci men Type: BLOOD SPECIMENOrdering Facility: [facility] Address: [address] [place] [address] Performed By: #### 5 7021-8 ####[facility] LABCLIA [id number] [address] LABCLIA [id number] [place] [address] Lymphocytes (Bld) [#/Vol] 0.67 10*3/uL Low 1.00-4.00 [facility] Comment on above: Order Comment: Speci men Type: BLOOD SPECIMENOrdering Facility: [facility] Address: [address] [place] [address] Performed By: #### 5 7021-8 ####[facility] LABCLIA [id number] [address] LABCLIA [id number] [place] [address] Lymphocytes/100 WBC (Bld) 41.0 % Normal [facility] Comment on above: Order Comment: Speci men Type: BLOOD SPECIMENOrdering Facility: [facility] Address: [address] [place] [address] Performed By: #### 5 7021-8 ####[facility] LABCLIA [id number] [address] LABCLIA [id number] [place] [address] MCH (RBC) [Entitic mass] 31.7 pg Normal 26.0-34.0 [facility] Comment on above: Order Comment: Speci men Type: BLOOD SPECIMENOrdering Facility: [facility] Address: [address] [place] [address] Performed By: #### 5 7021-8 ####[facility] LABCLIA [id number] [address] LABCLIA [id number] [place] [address] MCHC (RBC) [Mass/Vol] 32.2 g/dL Normal 30.5-36.0 [facility] Comment on above: Order Comment: Speci men Type: BLOOD SPECIMENOrdering Facility: [facility] Address: [address] [place] [address] Performed By: #### 5 7021-8 ####[facility] LABCLIA [id number] [address] LABCLIA [id number] [place] [address] MCV (RBC) [Entitic vol] 98.5 fL Normal 80.0-100.0 [facility] Comment on above: Order Comment: Speci men Type: BLOOD SPECIMENOrdering Facility: [facility] Address: [address] [place] [address] Performed By: #### 5 7021-8 ####[facility] LABCLIA [id number] [address] LABCLIA [id number] [place] [address] Metamyelocytes/100 WBC (Bld) 2.0 % Normal [facility] Comment on above: Order Comment: Speci men Type: BLOOD SPECIMENOrdering Facility: [facility] Address: [address] [place] [address] Performed By: #### 5 7021-8 ####[facility] LABCLIA [id number] [address] LABCLIA [id number] [place] [address] Monocytes (Bld) [#/Vol] 0.08 10*3/uL Normal <0.87 [facility] Comment on above: Order Comment: Speci men Type: BLOOD SPECIMENOrdering Facility: [facility] Address: [address] [place] [address] Performed By: #### 5 7021-8 ####[facility] LABCLIA [id number] [address] LABCLIA [id number] [place] [address] Monocytes/100 WBC (Bld) 5.0 % Normal [facility] Comment on above: Order Comment: Speci men Type: BLOOD SPECIMENOrdering Facility: [facility] Address: [address] [place] [address] Performed By: #### 5 7021-8 ####[facility] LABCLIA [id number] [address] LABCLIA [id number] [place] [address] MYELO% 1.0 % Normal [facility] Comment on above: Order Comment: Speci men Type: BLOOD SPECIMENOrdering Facility: [facility] Address: [address] [place], [place] [address] Performed By: #### 5 7021-8 ####[facility] LABCLIA [id number] [address] LABCLIA [id number] [place] [address] Neutrophils (Bld) [#/Vol] 0.68 10*3/uL Low 1.45-7.50 [facility] Comment on above: Order Comment: Speci men Type: BLOOD SPECIMENOrdering Facility: [facility] Address: [address] Performed By: #### 5 7021-8 ####[facility] LABCLIA [id number] [address] LABCLIA [id number] [place] [address] Neutrophils/100 WBC (Bld) 42.0 % Normal [facility] Comment on above: Order Comment: Speci men Type: BLOOD SPECIMENOrdering Facility: [facility] Address: [address] Performed By: #### 5 7021-8 ####[facility] LABCLIA [id number] [address] LABCLIA [id number] [place] [address] Nucleated RBC (Bld) [#/Vol] 10*3/uL Normal <0.01 [facility] Comment on above: Order Comment: Speci men Type: BLOOD SPECIMENOrdering Facility: [facility] Address: [address] [place], [place] [address] Performed By: #### 5 7021-8 ####[facility] LABCLIA [id number] [address] LABCLIA [id number] [place] [address] Nucleated RBC/100 WBC (Bld) [Ratio] 0.0 /100 WBC Normal [facility] Comment on above: Order Comment: Speci men Type: BLOOD SPECIMENOrdering Facility: [facility] Address: [address] [place], [place] [address] Performed By: #### 5 7021-8 ####[facility] LABCLIA [id number] [address] LABCLIA [id number] [place] [address] Ovalocytes LM Ql (Bld) Few Normal [facility] Comment on above: Order Comment: Speci men Type: BLOOD SPECIMENOrdering Facility: [facility] Address: [address] [place] [address] Performed By: #### 5 7021-8 ####[facility] LABCLIA [id number] [address] LABCLIA [id number] [place] [address] Platelet mean volume (Bld) [Entitic vol] Normal [facility] Comment on above: Order Comment: Speci men Type: BLOOD SPECIMENOrdering Facility: [facility] Address: [address] [place] [address] Result Comment: Unab le to Report. Performed By: #### 5 7021-8 ####[facility] LABCLIA [id number] [address] LABCLIA [id number] [place] [address] Platelets (Bld) [#/Vol] 72 10*3/uL Low 150-400 [facility] Comment on above: Order Comment: Speci men Type: BLOOD SPECIMENOrdering Facility: [facility] Address: [address] [place] [address] Result Comment: Resu lts checked and verified. No clot detected Performed By: #### 5 7021-8 ####[facility] LABCLIA [id number] [address] LABCLIA [id number] [place] [address] Platelets Estimate (Bld) [#/Vol] Decreased Normal [facility] Comment on above: Order Comment: Speci men Type: BLOOD SPECIMENOrdering Facility: [facility] Address: [address] [place] [address] Performed By: #### 5 7021-8 ####[facility] LABCLIA [id number] [address] LABCLIA [id number] [place] [address] RBC (Bld) [#/Vol] 2.62 10*6/uL Low 4.20-6.00 [facility] Comment on above: Order Comment: Speci men Type: BLOOD SPECIMENOrdering Facility: [facility] Address: [address] [address] Performed By: #### 5 7021-8 ####[facility] LABCLIA [id number] [address] LABCLIA [id number] [place] [address] RED CELL MORPH Reviewed: see result s of individual morphologies Normal [facility] Comment on above: Order Comment: Speci men Type: BLOOD SPECIMENOrdering Facility: [facility] Address: [address] [address] Performed By: #### 5 7021-8 ####[facility] LABCLIA [id number] [address] LABCLIA [id number] [place] [address] WBC (Bld) [#/Vol] 1.63 10*3/uL Low 3.70-11.00 [facility] Comment on above: Order Comment: Speci men Type: BLOOD SPECIMENOrdering Facility: [facility] Address: [address] Result Comment: Resu lts checked and verified. No clot detected Performed By: #### 5 7021-8 ####[facility] LABCLIA [id number] [address] [id number] [place] [address] LABCLIA [id number] [place] [address] WBC Left Shift Ql (Bld) Present Normal [facility] Comment on above: Order Comment: Speci men Type: BLOOD SPECIMENOrdering Facility: [facility] Address: [address] [address] Performed By: #### 5 7021-8 ####[facility] LABCLIA [id number] [address] LABCLIA [id number] [place] [address] CNOVSPon 07-01-2022 CNOVSP Normal [facility] metabolic 2000 panelon 07-01-2022 Albumin [Mass/Vol] 3.8 g/dL Low 3.9-4.9 [facility] Comment on above: Order Comment: Speci men Type: BLOOD SPECIMENOrdering Facility: [facility] Address: [address] [address] Performed By: #### 2 4323-8 ####[facility] LABCLIA [id number] [place] [address] ALP [Catalytic activity/Vol] 118 U/L High 38-113 [facility] Comment on above: Order Comment: Speci men Type: BLOOD SPECIMENOrdering Facility: [facility] Address: [address] [address] Performed By: #### 2 4323-8 ####[facility] LABCLIA [id number] [place] [address] ALT [Catalytic activity/Vol] 44 U/L Normal 10-54 [facility] Comment on above: Order Comment: Speci men Type: BLOOD SPECIMENOrdering Facility: [facility] Address: [address] [address] Performed By: #### 2 4323-8 ####[facility] LABCLIA [id number] [place] [address] Anion gap [Moles/Vol] 8 mmol/L Low 9-18 [facility] Comment on above: Order Comment: Speci men Type: BLOOD SPECIMENOrdering Facility: [facility] Address: [address] [place] [address] Performed By: #### 2 4323-8 ####[facility] LABCLIA [id number] [place] [address] AST [Catalytic activity/Vol] 20 U/L Normal 14-40 [facility] Comment on above: Order Comment: Speci men Type: BLOOD SPECIMENOrdering Facility: [facility] Address: [address] [place] [address] Performed By: #### 2 4323-8 ####[facility] LABCLIA [id number] [place] [address] Bilirubin [Mass/Vol] 1.0 mg/dL Normal 0.2-1.3 [facility] Comment on above: Order Comment: Speci men Type: BLOOD SPECIMENOrdering Facility: [facility] Address: [address] [place] [address] Performed By: #### 2 4323-8 ####[facility] LABCLIA [id number] [place] [address] Calcium [Mass/Vol] 8.8 mg/dL Normal 8.5-10.2 [facility] Comment on above: Order Comment: Speci men Type: BLOOD SPECIMENOrdering Facility: [facility] Address: [address] [place] [address] Performed By: #### 2 4323-8 ####[facility] LABCLIA [id number] [place] [address] Chloride [Moles/Vol] 103 mmol/L Normal 97-105 [facility] Comment on above: Order Comment: Speci men Type: BLOOD SPECIMENOrdering Facility: [facility] Address: [address] [place] [address] Performed By: #### 2 4323-8 ####[facility] LABCLIA [id number] [place] [address] CO2 [Moles/Vol] 32 mmol/L High 22-30 [facility] Comment on above: Order Comment: Speci men Type: BLOOD SPECIMENOrdering Facility: [facility] Address: [address] [place] [address] Performed By: #### 2 4323-8 ####[facility] LABCLIA [id number] [place] [address] Creatinine [Mass/Vol] 1.43 mg/dL High 0.73-1.22 [facility] Comment on above: Order Comment: Speci men Type: BLOOD SPECIMENOrdering Facility: [facility] Address: [address] [place] [address] Performed By: #### 2 4323-8 ####[facility] LABCLIA [id number] [place] [address] ESTIMATED GLOMERULAR FILTRATION RATE 49 mL/min/1.73m??? Low >=60 [facility] Comment on above: Order Comment: Speci men Type: BLOOD SPECIMENOrdering Facility: [facility] Address: [address] [place] [address] Result Comment: Faye mated Glomerular Filtration Rate (eGFR) is calculated using the 2020 CKD-EPI creatinine equation. This equation utilizes serum creatinine, sex, and age as parameters. The creatinine assay has traceable calibration to isotope dilution-mass spectrometry. Refer to KDIGO guidelines for clinical interpretation. In patients with unstable renal function, e.g. those with acute kidney injury, the eGFR may not accurately reflect actual GFR. Performed By: #### 2 4323-8 ####[facility] LABCLIA [id number] [place] [address] Glucose [Mass/Vol] 123 mg/dL High 74-99 [facility] Comment on above: Order Comment: Speci men Type: BLOOD SPECIMENOrdering Facility: [facility] Address: [address] [address] Result Comment: The [place] [employer] (ADA) provides guidance for cutoff values for fasting glucose and random glucose. The ADA defines fasting as no caloric intake for at least 8 hours. Fasting plasma glucose results between 100 to 125 mg/dL indicate increased risk for diabetes (prediabetes).Fasting plasma glucose results greater than or equal to 126 mg/dL meet the criteria for diagnosis of diabetes. In the absence of unequivocal hyperglycemia, results should be confirmed by repeat testing. In a patient with classic symptoms of hyperglycemia or hyperglycemic crisis, random plasma glucose results greater than or equal to 200 mg/dL meet the criteria for diagnosis of diabetes.Reference: Standards of Medical Care in Diabetes 2016, [employer] [place] [employer]. Diabetes Care. 2016.39(Suppl 1). Performed By: #### 2 4323-8 ####[facility] LABCLIA [id number] [place] [address] Potassium [Moles/Vol] 3.9 mmol/L Normal 3.7-5.1 [facility] Comment on above: Order Comment: Speci men Type: BLOOD SPECIMENOrdering Facility: [facility] Address: [address] [address] Performed By: #### 2 4323-8 ####[facility] LABCLIA [id number] [place] [address] Protein [Mass/Vol] 6.2 g/dL Low 6.3-8.0 [facility] Comment on above: Order Comment: Speci men Type: BLOOD SPECIMENOrdering Facility: [facility] Address: [address] [address] Performed By: #### 2 4323-8 ####[facility] LABCLIA [id number] [place] [address] Sodium [Moles/Vol] 143 mmol/L Normal 136-144 [facility] Comment on above: Order Comment: Speci men Type: BLOOD SPECIMENOrdering Facility: [facility] Address: [address] [address] Performed By: #### 2 4323-8 ####[facility] LABCLIA [id number] [place] [address] Urea nitrogen [Mass/Vol] 21 mg/dL Normal 9-24 [facility] Comment on above: Order Comment: Speci men Type: BLOOD SPECIMENOrdering Facility: [facility] Address: [address] [place] [address] Performed By: #### 2 4323-8 ####[facility] LABCLIA [id number] [place] [address] LDH SerPl-cCncon 07-01-2022 LDH [Catalytic activity/Vol] 200 U/L Normal 135-225 [facility] Comment on above: Order Comment: Speci men Type: BLOOD SPECIMENOrdering Facility: [facility] Address: [address] [place] [address] Performed By: #### 2 532-0 ####[facility] LABCLIA [id number] [place] [address] HEMOGLOBIN AND HEMATOCRITon 06-25-2022 Hematocrit (Bld) [Volume fraction] 24.6 % Critically low 42.0-54.0 [facility] Comment on above: Performed By: #### T ZEHRA, PRBC #### [facility] [address] [place] [address] Dr. Bentio To Hemoglobin (Bld) [Mass/Vol] 8.0 g/dL Critically low 14.0-18.0 [facility] Comment on above: Performed By: #### T NS, PRBC #### [facility] [address] [address] [address] Benito To TYPE AND SCREENon 06-25-2022 TYPE AND SCREEN Negative Normal [facility] Comment on above: Performed By: #### T ZEHRA, PRBC #### [facility] [address] [address] [address] Benito To CBC W Auto Differential pane l (Bld)on 06-24-2022 Anisocytosis Ql (Bld) Present Normal [facility] Comment on above: Order Comment: Speci men Type: BLOOD SPECIMENOrdering Facility: [facility] Address: [address] [place] [address] Performed By: #### 5 7021-8 ####[facility] LABCLIA [id number] [address] LABCLIA [id number] [place] [address] [place] Basophils (Bld) [#/Vol] 0.04 10*3/uL Normal <0.11 [facility] Comment on above: Order Comment: Speci men Type: BLOOD SPECIMENOrdering Facility: [facility] Address: [address] [place] [address] Performed By: #### 5 7021-8 ####[facility] LABCLIA [id number] [address] LABCLIA [id number] [place] [address] [place] Basophils/100 WBC (Bld) 2.0 % Normal [facility] Comment on above: Order Comment: Speci men Type: BLOOD SPECIMENOrdering Facility: [facility] Address: [address] [place] [address] Performed By: #### 5 7021-8 ####[facility] LABCLIA [id number] [address] LABCLIA [id number] [place] [address] [place] Differential cell count method Nom (Bld) Manual Normal [facility] Comment on above: Order Comment: Speci men Type: BLOOD SPECIMENOrdering Facility: [facility] Address: [address] [place] [address] Performed By: #### 5 7021-8 ####[facility] LABCLIA [id number] [address] LABCLIA [id number] [place] [address] [place] Eosinophils (Bld) [#/Vol] 0.02 10*3/uL Normal <0.46 [facility] Comment on above: Order Comment: Speci men Type: BLOOD SPECIMENOrdering Facility: [facility] Address: [address] [place] [address] Performed By: #### 5 7021-8 ####[facility] LABCLIA [id number] [address] LABCLIA [id number] [place] [address] [place] Eosinophils/100 WBC (Bld) 1.0 % Normal [facility] Comment on above: Order Comment: Speci men Type: BLOOD SPECIMENOrdering Facility: [facility] Address: [address] [place] [address] Performed By: #### 5 7021-8 ####[facility] LABCLIA [id number] [address] LABCLIA [id number] [place] [address] [place] Erythrocyte distribution width (RBC) [Ratio] 18.7 % High 11.5-15.0 [facility] Comment on above: Order Comment: Speci men Type: BLOOD SPECIMENOrdering Facility: [facility] Address: [address] [place], [place] [address] Performed By: #### 5 7021-8 ####[facility] LABCLIA [id number] [address] LABCLIA [id number] [place] [address] [place] Hematocrit (Bld) [Volume fraction] 25.5 % Low 39.0-51.0 [facility] Comment on above: Order Comment: Speci men Type: BLOOD SPECIMENOrdering Facility: [facility] Address: [address] [address] Performed By: #### 5 7021-8 ####[facility] LABCLIA [id number] [address] LABCLIA [id number] [place] [address] [place] Hemoglobin (Bld) [Mass/Vol] 8.1 g/dL Low 13.0-17.0 [facility] Comment on above: Order Comment: Speci men Type: BLOOD SPECIMENOrdering Facility: [facility] Address: [address] [place] [address] Performed By: #### 5 7021-8 ####[facility] LABCLIA [id number] [address] LABCLIA [id number] [place] [address] [place] Lymphocytes (Bld) [#/Vol] 0.75 10*3/uL Low 1.00-4.00 [facility] Comment on above: Order Comment: Speci men Type: BLOOD SPECIMENOrdering Facility: [facility] Address: [address] [place] [address] Performed By: #### 5 7021-8 ####[facility] LABCLIA [id number] [address] LABCLIA [id number] [place] [address] [place] Lymphocytes/100 WBC (Bld) 42.0 % Normal [facility] Comment on above: Order Comment: Speci men Type: BLOOD SPECIMENOrdering Facility: [facility] Address: [address] [place] [address] Performed By: #### 5 7021-8 ####[facility] LABCLIA [id number] [address] LABCLIA [id number] [place] [address] [place] MCH (RBC) [Entitic mass] 31.6 pg Normal 26.0-34.0 [facility] Comment on above: Order Comment: Speci men Type: BLOOD SPECIMENOrdering Facility: [facility] Address: [address] [place] [address] Performed By: #### 5 7021-8 ####[facility] LABCLIA [id number] [address] LABCLIA [id number] [place] [address] [place] MCHC (RBC) [Mass/Vol] 31.8 g/dL Normal 30.5-36.0 [facility] Comment on above: Order Comment: Speci men Type: BLOOD SPECIMENOrdering Facility: [facility] Address: [address] [place] [address] Performed By: #### 5 7021-8 ####[facility] LABCLIA [id number] [address] LABCLIA [id number] [place] [address] [place] MCV (RBC) [Entitic vol] 99.6 fL Normal 80.0-100.0 [facility] Comment on above: Order Comment: Speci men Type: BLOOD SPECIMENOrdering Facility: [facility] Address: [address] [place] [address] Performed By: #### 5 7021-8 ####[facility] LABCLIA [id number] [address] LABCLIA [id number] [place] [address] [place] Monocytes (Bld) [#/Vol] 0.14 10*3/uL Normal <0.87 [facility] Comment on above: Order Comment: Speci men Type: BLOOD SPECIMENOrdering Facility: [facility] Address: [address] [address] Performed By: #### 5 7021-8 ####[facility] LABCLIA [id number] [address] LABCLIA [id number] [place] [address] [place] Monocytes/100 WBC (Bld) 8.0 % Normal [facility] Comment on above: Order Comment: Speci men Type: BLOOD SPECIMENOrdering Facility: [facility] Address: [address] [place] [address] Performed By: #### 5 7021-8 ####[facility] LABCLIA [id number] [address] LABCLIA [id number] [place] [address] [place] Neutrophils (Bld) [#/Vol] 0.84 10*3/uL Low 1.45-7.50 [facility] Comment on above: Order Comment: Speci men Type: BLOOD SPECIMENOrdering Facility: [facility] Address: [address] [place] [address] Performed By: #### 5 7021-8 ####[facility] LABCLIA [id number] [address] LABCLIA [id number] [place] [address] [place] Neutrophils/100 WBC (Bld) 47.0 % Normal [facility] Comment on above: Order Comment: Speci men Type: BLOOD SPECIMENOrdering Facility: [facility] Address: [address] [place] [address] Performed By: #### 5 7021-8 ####[facility] LABCLIA [id number] [address] LABCLIA [id number] [place] [address] [place] Nucleated RBC (Bld) [#/Vol] 10*3/uL Normal <0.01 [facility] Comment on above: Order Comment: Speci men Type: BLOOD SPECIMENOrdering Facility: [facility] Address: [address] [address] Performed By: #### 5 7021-8 ####[facility] LABCLIA [id number] [address] LABCLIA [id number] [place] [address] [place] Nucleated RBC/100 WBC (Bld) [Ratio] 0.0 /100 WBC Normal [facility] Comment on above: Order Comment: Speci men Type: BLOOD SPECIMENOrdering Facility: [facility] Address: [address] [place], [place] [address] Performed By: #### 5 7021-8 ####[facility] LABCLIA [id number] [address] LABCLIA [id number] [place] [address] [place] Ovalocytes LM Ql (Bld) Few Normal [facility] Comment on above: Order Comment: Speci men Type: BLOOD SPECIMENOrdering Facility: [facility] Address: [address] [place], [place] [address] Performed By: #### 5 7021-8 ####[facility] LABCLIA [id number] [address] LABCLIA [id number] [place] [address] [place] Platelet mean volume (Bld) [Entitic vol] 14.0 fL High 9.0-12.7 [facility] Comment on above: Order Comment: Speci men Type: BLOOD SPECIMENOrdering Facility: [facility] Address: [address] [place], [place] [address] Performed By: #### 5 7021-8 ####[facility] LABCLIA [id number] [address] LABCLIA [id number] [place] [address] [place] Platelets (Bld) [#/Vol] 72 10*3/uL Low 150-400 [facility] Comment on above: Order Comment: Speci men Type: BLOOD SPECIMENOrdering Facility: [facility] Address: [address] [place] [address] Result Comment: Samp le checked for clot Performed By: #### 5 7021-8 ####[facility] LABCLIA [id number] [address] LABCLIA [id number] [place] [address] [place] Platelets Estimate (Bld) [#/Vol] Decreased Normal [facility] Comment on above: Order Comment: Speci men Type: BLOOD SPECIMENOrdering Facility: [facility] Address: [address] Performed By: #### 5 7021-8 ####[facility] LABCLIA [id number] [address] LABCLIA [id number] [place] [address] [place] RBC (Bld) [#/Vol] 2.56 10*6/uL Low 4.20-6.00 [facility] Comment on above: Order Comment: Speci men Type: BLOOD SPECIMENOrdering Facility: [facility] Address: [address] Performed By: #### 5 7021-8 ####[facility] LABCLIA [id number] [address] LABCLIA [id number] [place] [address] [place] RBC FRAGMENTS Few Abnormal None Seen [facility] Comment on above: Order Comment: Speci men Type: BLOOD SPECIMENOrdering Facility: [facility] Address: [address] [place] [address] Performed By: #### 5 7021-8 ####[facility] LABCLIA [id number] [address] LABCLIA [id number] [place] [address] [place] RED CELL MORPH Reviewed: see result s of individual morphologies Normal [facility] Comment on above: Order Comment: Speci men Type: BLOOD SPECIMENOrdering Facility: [facility] Address: [address] [place] [address] Performed By: #### 5 7021-8 ####[facility] LABCLIA [id number] [address] LABCLIA [id number] [place] [address] [place] WBC (Bld) [#/Vol] 1.79 10*3/uL Low 3.70-11.00 [facility] Comment on above: Order Comment: Speci men Type: BLOOD SPECIMENOrdering Facility: [facility] Address: [address] [place] [address] Result Comment[facility] Performed By: #### 5 7021-8 ####[facility] LABCLIA [id number] [address] LABCLIA [id number] [place] [address] [place] CNOVSPon 06-24-2022 CNOVSP Normal [facility] Comprehensive metabolic 2000 panelon 06-24-2022 Albumin [Mass/Vol] 3.7 g/dL Low 3.9-4.9 [facility] Comment on above: Order Comment: Speci men Type: BLOOD SPECIMENOrdering Facility: [facility] Address: [address] [address] Performed By: #### 2 532-0, ####[facility] LABCLIA [id number] [place] [address] ALP [Catalytic activity/Vol] 117 U/L High 38-113 [facility] Comment on above: Order Comment: Speci men Type: BLOOD SPECIMENOrdering Facility: [facility] Address: [address] [place] [address] Performed By: #### 2 532-0, ####[facility] LABCLIA [id number] [place] [address] ALT [Catalytic activity/Vol] 48 U/L Normal 10-54 [facility] Comment on above: Order Comment: Speci men Type: BLOOD SPECIMENOrdering Facility: [facility] Address: [address] [place] [address] Performed By: #### 2 532-0, ####[facility] LABCLIA [id number] [place] [address] Anion gap [Moles/Vol] 9 mmol/L Normal 9-18 [facility] Comment on above: Order Comment: Speci men Type: BLOOD SPECIMENOrdering Facility: [facility] Address: [address] [place] [address] Performed By: #### 2 532-0, ####[facility] LABCLIA [id number] [place] [address] AST [Catalytic activity/Vol] 22 U/L Normal 14-40 [facility] Comment on above: Order Comment: Speci men Type: BLOOD SPECIMENOrdering Facility: [facility] Address: [address] [place] [address] Performed By: #### 2 532-0, ####[facility] LABCLIA [id number] [place] [address] Bilirubin [Mass/Vol] 1.0 mg/dL Normal 0.2-1.3 [facility] Comment on above: Order Comment: Speci men Type: BLOOD SPECIMENOrdering Facility: [facility] Address: [address] [place] [address] Performed By: #### 2 532-0, ####[facility] LABCLIA [id number] [place] [address] Calcium [Mass/Vol] 8.6 mg/dL Normal 8.5-10.2 [facility] Comment on above: Order Comment: Speci men Type: BLOOD SPECIMENOrdering Facility: [facility] Address: [address] [place] [address] Performed By: #### 2 532-0, ####[facility] LABIA [id number] [place] [address] Chloride [Moles/Vol] 105 mmol/L Normal 97-105 [facility] Comment on above: Order Comment: Speci men Type: BLOOD SPECIMENOrdering Facility: [facility] Address: [address] [place] [address] Performed By: #### 2 532-0, ####[facility] LABIA [id number] [place] [address] CO2 [Moles/Vol] 30 mmol/L Normal 22-30 [facility] Comment on above: Order Comment: Speci men Type: BLOOD SPECIMENOrdering Facility: [facility] Address: [address] [place] [address] Performed By: #### 2 532-0, ####[facility] LABIA [id number] [place] [address] Creatinine [Mass/Vol] 1.52 mg/dL High 0.73-1.22 [facility] Comment on above: Order Comment: Speci men Type: BLOOD SPECIMENOrdering Facility: [facility] Address: [address] [address] Performed By: #### 2 532-0, 04908-8 ####[facility] LABIA [id number] [place] [address] ESTIMATED GLOMERULAR FILTRATION RATE 45 mL/min/1.73m??? Low >=60 [facility] Comment on above: Order Comment: Davi avendaño Type: BLOOD SPECIMENOrdering Facility: [facility] Address: [address] [place] [address] Result Comment: Faye mated Glomerular Filtration Rate (eGFR) is calculated using the 2020 CKD-EPI creatinine equation. This equation utilizes serum creatinine, sex, and age as parameters. The creatinine assay has traceable calibration to isotope dilution-mass spectrometry. Refer to KDIGO guidelines for clinical interpretation. In patients with unstable renal function, e.g. those with acute kidney injury, the eGFR may not accurately reflect actual GFR. Performed By: #### 2 532-0, 92715-4 ####[facility] LABCLIA [id number] [place] [address] Glucose [Mass/Vol] 122 mg/dL High 74-99 [facility] Comment on above: Order Comment: Davi avendaño Type: BLOOD SPECIMENOrdering Facility: [facility] Address: [address] [place] [address] Result Comment: The [place] Diabetes [employer] (ADA) provides guidance for cutoff values for fasting glucose and random glucose. The ADA defines fasting as no caloric intake for at least 8 hours. Fasting plasma glucose results between 100 to 125 mg/dL indicate increased risk for diabetes (prediabetes).Fasting plasma glucose results greater than or equal to 126 mg/dL meet the criteria for diagnosis of diabetes. In the absence of unequivocal hyperglycemia, results should be confirmed by repeat testing. In a patient with classic symptoms of hyperglycemia or hyperglycemic crisis, random plasma glucose results greater than or equal to 200 mg/dL meet the criteria for diagnosis of diabetes.Reference: Standards of Medical Care in Diabetes 2016, [employer] [place] [employer]. Diabetes Care. 2016.39(Suppl 1). Performed By: #### 2 532-0, 07588-1 ####[facility] LABCLIA [id number] [place] [address] Potassium [Moles/Vol] 3.6 mmol/L Low 3.7-5.1 [facility] Comment on above: Order Comment: Speci men Type: BLOOD SPECIMENOrdering Facility: [facility] Address: [address] [place] [address] Performed By: #### 2 532-0, 24107-4 ####[facility] LABCLIA [id number] [place] [address] Protein [Mass/Vol] 6.1 g/dL Low 6.3-8.0 [facility] Comment on above: Order Comment: Speci men Type: BLOOD SPECIMENOrdering Facility: [facility] Address: [address] [place] [address] Performed By: #### 2 532-0, 46330-6 ####[facility] LABIA [id number] [place] [address] Sodium [Moles/Vol] 144 mmol/L Normal 136-144 [facility] Comment on above: Order Comment: Speci men Type: BLOOD SPECIMENOrdering Facility: [facility] Address: [address] [place] [address] Performed By: #### 2 532-0, 41338-9 ####[facility] LABIA [id number] [place] [address] Urea nitrogen [Mass/Vol] 21 mg/dL Normal 9-24 [facility] Comment on above: Order Comment: Speci men Type: BLOOD SPECIMENOrdering Facility: [facility] Address: [address] [place] [address] Performed By: #### 2 532-0, 76423-6 ####[facility] LABIA [id number] [place] [address] [facility] LDH [Catalytic activity/Vol] 198 U/L Normal 135-225 [facility] Comment on above: Order Comment: Speci men Type: BLOOD SPECIMENOrdering Facility: [facility] Address: [address] [place] [address] Performed By: #### 2 532-0, 43430-2 ####[facility] LABCLIA [id number] [place] [address] CBC W Auto Differential pane l (Bld)on 06-17-2022 Anisocytosis Ql (Bld) Present Normal [facility] Comment on above: Order Comment: Speci men Type: BLOOD SPECIMENOrdering Facility: [facility] Address: [address] [place] [address] Performed By: #### 5 7021-8 ####[facility] LABCLIA [id number] [address] LABCLIA [id number] [place] [address] [place] Basophils (Bld) [#/Vol] 0.05 10*3/uL Normal <0.11 [facility] Comment on above: Order Comment: Speci men Type: BLOOD SPECIMENOrdering Facility: [facility] Address: [address] [place] [address] Performed By: #### 5 7021-8 ####[facility] LABCLIA [id number] [address] LABCLIA [id number] [place] [address] [place] Basophils/100 WBC (Bld) 3.0 % Normal [facility] Comment on above: Order Comment: Speci men Type: BLOOD SPECIMENOrdering Facility: [facility] Address: [address] [place] [address] Performed By: #### 5 7021-8 ####[facility] LABCLIA [id number] [address] LABCLIA [id number] [place] [address] [place] Differential cell count method Nom (Bld) Manual Normal [facility] Comment on above: Order Comment: Speci men Type: BLOOD SPECIMENOrdering Facility: [facility] Address: [address] [place] [address] Performed By: #### 5 7021-8 ####[facility] LABCLIA [id number] [address] LABCLIA [id number] [place] [address] [place] Eosinophils (Bld) [#/Vol] 0.03 10*3/uL Normal <0.46 [facility] Comment on above: Order Comment: Speci men Type: BLOOD SPECIMENOrdering Facility: [facility] Address: [address] [place] [address] Performed By: #### 5 7021-8 ####[facility] LABCLIA [id number] [address] LABCLIA [id number] [place] [address] [place] Eosinophils/100 WBC (Bld) 2.0 % Normal [facility] Comment on above: Order Comment: Speci men Type: BLOOD SPECIMENOrdering Facility: [facility] Address: [address] [place], [place] [address] Performed By: #### 5 7021-8 ####[facility] LABCLIA [id number] [address] LABCLIA [id number] [place] [address] [place] Erythrocyte distribution width (RBC) [Ratio] 19.8 % High 11.5-15.0 [facility] Comment on above: Order Comment: Speci men Type: BLOOD SPECIMENOrdering Facility: [facility] Address: [address] [place], [place] [address] Performed By: #### 5 7021-8 ####[facility] LABCLIA [id number] [address] LABCLIA [id number] [place] [address] [place] Hematocrit (Bld) [Volume fraction] 26.1 % Low 39.0-51.0 [facility] Comment on above: Order Comment: Speci men Type: BLOOD SPECIMENOrdering Facility: [facility] Address: [address] [place] [address] Performed By: #### 5 7021-8 ####[facility] LABCLIA [id number] [address] LABCLIA [id number] [place] [address] [place] Hemoglobin (Bld) [Mass/Vol] 8.4 g/dL Low 13.0-17.0 [facility] Comment on above: Order Comment: Speci men Type: BLOOD SPECIMENOrdering Facility: [facility] Address: [address] Performed By: #### 5 7021-8 ####[facility] LABCLIA [id number] [address] LABCLIA [id number] [place] [address] [place] Lymphocytes (Bld) [#/Vol] 0.66 10*3/uL Low 1.00-4.00 [facility] Comment on above: Order Comment: Speci men Type: BLOOD SPECIMENOrdering Facility: [facility] Address: [address] Performed By: #### 5 7021-8 ####[facility] LABCLIA [id number] [address] LABCLIA [id number] [place] [address] [place] Lymphocytes/100 WBC (Bld) 40.0 % Normal [facility] Comment on above: Order Comment: Speci men Type: BLOOD SPECIMENOrdering Facility: [facility] Address: [address] [place] [address] Performed By: #### 5 7021-8 ####[facility] LABCLIA [id number] [address] LABCLIA [id number] [place] [address] [place] MCH (RBC) [Entitic mass] 32.1 pg Normal 26.0-34.0 [facility] Comment on above: Order Comment: Speci men Type: BLOOD SPECIMENOrdering Facility: [facility] Address: [address] [place], [place] [address] Performed By: #### 5 7021-8 ####[facility] LABCLIA [id number] [address] LABCLIA [id number] [place] [address] [place] MCHC (RBC) [Mass/Vol] 32.2 g/dL Normal 30.5-36.0 [facility] Comment on above: Order Comment: Speci men Type: BLOOD SPECIMENOrdering Facility: [facility] Address: [address] [place] [address] Performed By: #### 5 7021-8 ####[facility] LABCLIA [id number] [address] LABCLIA [id number] [place] [address] [place] MCV (RBC) [Entitic vol] 99.6 fL Normal 80.0-100.0 [facility] Comment on above: Order Comment: Speci men Type: BLOOD SPECIMENOrdering Facility: [facility] Address: [address] [place], [place] [address] Performed By: #### 5 7021-8 ####[facility] LABCLIA [id number] [address] LABCLIA [id number] [place] [address] [place] Monocytes (Bld) [#/Vol] 0.20 10*3/uL Normal <0.87 [facility] Comment on above: Order Comment: Speci men Type: BLOOD SPECIMENOrdering Facility: [facility] Address: [address] Performed By: #### 5 7021-8 ####[facility] LABCLIA [id number] [address] LABCLIA [id number] [place] [address] [place] Monocytes/100 WBC (Bld) 12.0 % Normal [facility] Comment on above: Order Comment: Speci men Type: BLOOD SPECIMENOrdering Facility: [facility] Address: [address] Performed By: #### 5 7021-8 ####[facility] LABCLIA [id number] [address] LABCLIA [id number] [place] [address] [place] Neutrophils (Bld) [#/Vol] 0.71 10*3/uL Low 1.45-7.50 [facility] Comment on above: Order Comment: Speci men Type: BLOOD SPECIMENOrdering Facility: [facility] Address: [address] Performed By: #### 5 7021-8 ####[facility] LABCLIA [id number] [address] LABCLIA [id number] [place] [address] [place] Neutrophils/100 WBC (Bld) 43.0 % Normal [facility] Comment on above: Order Comment: Speci men Type: BLOOD SPECIMENOrdering Facility: [facility] Address: [address] [place] [address] Performed By: #### 5 7021-8 ####[facility] LABCLIA [id number] [address] LABCLIA [id number] [place] [address] [place] Nucleated RBC (Bld) [#/Vol] 10*3/uL Normal <0.01 [facility] Comment on above: Order Comment: Speci men Type: BLOOD SPECIMENOrdering Facility: [facility] Address: [address] [place], [place] [address] Performed By: #### 5 7021-8 ####[facility] LABCLIA [id number] [address] LABCLIA [id number] [place] [address] [place] Nucleated RBC/100 WBC (Bld) [Ratio] 0.0 /100 WBC Normal [facility] Comment on above: Order Comment: Speci men Type: BLOOD SPECIMENOrdering Facility: [facility] Address: [address] [place], [place] [address] Performed By: #### 5 7021-8 ####[facility] LABCLIA [id number] [address] LABCLIA [id number] [place] [address] [place] Ovalocytes LM Ql (Bld) Few Normal [facility] Comment on above: Order Comment: Speci men Type: BLOOD SPECIMENOrdering Facility: [facility] Address: [address] [place], [place] [address] Performed By: #### 5 7021-8 ####[facility] LABCLIA [id number] [place] [id number] LABCLIA [id number] [place] [address] [place] Platelet mean volume (Bld) [Entitic vol] 14.0 fL High 9.0-12.7 [facility] Comment on above: Order Comment: Speci men Type: BLOOD SPECIMENOrdering Facility: [facility] Address: [address] [place] [address] Performed By: #### 5 7021-8 ####[facility] LABCLIA [id number] [address] LABCLIA [id number] [place] [address] [place] Platelets (Bld) [#/Vol] 56 10*3/uL Low 150-400 [facility] Comment on above: Order Comment: Speci men Type: BLOOD SPECIMENOrdering Facility: [facility] Address: [address] [place] [address] Result Comment: Samp le checked for clot Performed By: #### 5 7021-8 ####[facility] LABCLIA [id number] [place] [id number] LABCLIA [id number] [place] [address] [place] Platelets Estimate (Bld) [#/Vol] Decreased Normal [facility] Comment on above: Order Comment: Speci men Type: BLOOD SPECIMENOrdering Facility: [facility] Address: [address] [place] [address] Performed By: #### 5 7021-8 ####[facility] LABCLIA [id number] [address] LABCLIA [id number] [place] [address] [place] RBC (Bld) [#/Vol] 2.62 10*6/uL Low 4.20-6.00 [facility] Comment on above: Order Comment: Speci men Type: BLOOD SPECIMENOrdering Facility: [facility] Address: [address] [place] [address] Performed By: #### 5 7021-8 ####[facility] LABCLIA [id number] [address] LABCLIA [id number] [place] [address] [place] RBC FRAGMENTS Few Abnormal None Seen [facility] Comment on above: Order Comment: Speci men Type: BLOOD SPECIMENOrdering Facility: [facility] Address: [address] [place] [address] Performed By: #### 5 7021-8 ####[facility] LABCLIA [id number] [address] LABCLIA [id number] [place] [address] [place] RED CELL MORPH Reviewed: see result s of individual morphologies Normal [facility] Comment on above: Order Comment: Speci men Type: BLOOD SPECIMENOrdering Facility: [facility] Address: [address] [place] [address] Performed By: #### 5 7021-8 ####[facility] LABCLIA [id number] [address] LABCLIA [id number] [place] [address] [place] WBC (Bld) [#/Vol] 1.64 10*3/uL Low 3.70-11.00 [facility] Comment on above: Order Comment: Speci men Type: BLOOD SPECIMENOrdering Facility: [facility] Address: [address] [place] [address] Result Comment: Samp le checked for clot Performed By: #### 5 7021-8 ####[facility] LABCLIA [id number] [place], [place] [address] LABCLIA [id number] [facility] [place] [address] [place] CNOVSPon 06-17-2022 CNOVSP Normal [facility] CNPNon 06-17-2022 CNPN Normal [facility] Comprehensive metabolic 2000 panelon 06-17-2022 Albumin [Mass/Vol] 4.0 g/dL Normal 3.9-4.9 [facility] Comment on above: Order Comment: Speci men Type: BLOOD SPECIMENOrdering Facility: [facility] Address: [address] [place] [address] Performed By: #### 2 4323-8 ####[facility] LABCLIA [id number] [place] [address] ALP [Catalytic activity/Vol] 108 U/L Normal 38-113 [facility] Comment on above: Order Comment: Speci men Type: BLOOD SPECIMENOrdering Facility: [facility] Address: [address] [place] [address] Performed By: #### 2 4323-8 ####[facility] LABCLIA [id number] [place] [address] ALT [Catalytic activity/Vol] 42 U/L Normal 10-54 [facility] Comment on above: Order Comment: Speci men Type: BLOOD SPECIMENOrdering Facility: [facility] Address: [address] [place] [address] Performed By: #### 2 4323-8 ####[facility] LABCLIA [id number] [place] [address] Anion gap [Moles/Vol] 8 mmol/L Low 9-18 [facility] Comment on above: Order Comment: Speci men Type: BLOOD SPECIMENOrdering Facility: [facility] Address: [address] [place] [address] Performed By: #### 2 4323-8 ####[facility] LABCLIA [id number] [place] [address] AST [Catalytic activity/Vol] 22 U/L Normal 14-40 [facility] Comment on above: Order Comment: Speci men Type: BLOOD SPECIMENOrdering Facility: [facility] Address: [address] [place] [address] Performed By: #### 2 4323-8 ####[facility] LABCLIA [id number] [place] [address] Bilirubin [Mass/Vol] 0.9 mg/dL Normal 0.2-1.3 [facility] Comment on above: Order Comment: Speci men Type: BLOOD SPECIMENOrdering Facility: [facility] Address: [address] [place] [address] Performed By: #### 2 4323-8 ####[facility] LABCLIA [id number] [place] [address] Calcium [Mass/Vol] 8.9 mg/dL Normal 8.5-10.2 [facility] Comment on above: Order Comment: Speci men Type: BLOOD SPECIMENOrdering Facility: [facility] Address: [address] [place] [address] Performed By: #### 2 4323-8 ####[facility] LABCLIA [id number] [place] [address] Chloride [Moles/Vol] 103 mmol/L Normal 97-105 [facility] Comment on above: Order Comment: Speci men Type: BLOOD SPECIMENOrdering Facility: [facility] Address: [address] [place] [address] Performed By: #### 2 4323-8 ####[facility] LABCLIA [id number] [place] [address] CO2 [Moles/Vol] 31 mmol/L High 22-30 [facility] Comment on above: Order Comment: Speci men Type: BLOOD SPECIMENOrdering Facility: [facility] Address: [address] [place] [address] Performed By: #### 2 4323-8 ####[facility] LABCLIA [id number] [place] [address] Creatinine [Mass/Vol] 1.52 mg/dL High 0.73-1.22 [facility] Comment on above: Order Comment: Speci men Type: BLOOD SPECIMENOrdering Facility: [facility] Address: [address] [place] [address] Performed By: #### 2 4323-8 ####[facility] LABCLIA [id number] [place] [address] ESTIMATED GLOMERULAR FILTRATION RATE 45 mL/min/1.73m??? Low >=60 [facility] Comment on above: Order Comment: Speci men Type: BLOOD SPECIMENOrdering Facility: [facility] Address: [address] [place] [address] Result Comment: Faye mated Glomerular Filtration Rate (eGFR) is calculated using the 2020 CKD-EPI creatinine equation. This equation utilizes serum creatinine, sex, and age as parameters. The creatinine assay has traceable calibration to isotope dilution-mass spectrometry. Refer to KDIGO guidelines for clinical interpretation. In patients with unstable renal function, e.g. those with acute kidney injury, the eGFR may not accurately reflect actual GFR. Performed By: #### 2 4323-8 ####[facility] LABCLIA [id number] [place] [address] Glucose [Mass/Vol] 141 mg/dL High 74-99 [facility] Comment on above: Order Comment: Speci men Type: BLOOD SPECIMENOrdering Facility: [facility] Address: [address] [place] [address] Result Comment: The [place] [employer] (ADA) provides guidance for cutoff values for fasting glucose and random glucose. The ADA defines fasting as no caloric intake for at least 8 hours. Fasting plasma glucose results between 100 to 125 mg/dL indicate increased risk for diabetes (prediabetes).Fasting plasma glucose results greater than or equal to 126 mg/dL meet the criteria for diagnosis of diabetes. In the absence of unequivocal hyperglycemia, results should be confirmed by repeat testing. In a patient with classic symptoms of hyperglycemia or hyperglycemic crisis, random plasma glucose results greater than or equal to 200 mg/dL meet the criteria for diagnosis of diabetes.Reference: Standards of Medical Care in Diabetes 2016, [employer] [place] [employer]. Diabetes Care. 2016.39(Suppl 1). Performed By: #### 2 4323-8 ####[facility] LABCLIA [id number] [place] [address] Potassium [Moles/Vol] 3.9 mmol/L Normal 3.7-5.1 [facility] Comment on above: Order Comment: Speci men Type: BLOOD SPECIMENOrdering Facility: [facility] Address: [address] [place] [address] Performed By: #### 2 4323-8 ####[facility] LABCLIA [id number] [place] [address] Protein [Mass/Vol] 6.3 g/dL Normal 6.3-8.0 [facility] Comment on above: Order Comment: Speci men Type: BLOOD SPECIMENOrdering Facility: [facility] Address: [address] [place] [address] Performed By: #### 2 4323-8 ####[facility] LABCLIA [id number] [place] [address] Sodium [Moles/Vol] 142 mmol/L Normal 136-144 [facility] Comment on above: Order Comment: Speci men Type: BLOOD SPECIMENOrdering Facility: [facility] Address: [address] [place] [address] Performed By: #### 2 4323-8 ####[facility] LABCLIA [id number] [place] [address] Urea nitrogen [Mass/Vol] 24 mg/dL Normal 9-24 [facility] Comment on above: Order Comment: Speci men Type: BLOOD SPECIMENOrdering Facility: [facility] Address: [address] [place] [address] Performed By: #### 2 4323-8 ####[facility] LABCLIA [id number] [place] [address] HEMOGLOBIN AND HEMATOCRITon 06-17-2022 Hematocrit (Bld) [Volume fraction] 25.0 % Critically low 42.0-54.0 [facility] Comment on above: Performed By: #### T NS, PRBC #### [facility] [address] [place] [address] Dr. Benito To Hemoglobin (Bld) [Mass/Vol] 8.0 g/dL Critically low 14.0-18.0 [facility] Comment on above: Performed By: #### T NS, PRBC #### [facility] [address] [place] [address] Dr. Benito To LDH SerPl-cCncon 06-17-2022 LDH [Catalytic activity/Vol] 199 U/L Normal 135-225 [facility] Comment on above: Order Comment: Speci men Type: BLOOD SPECIMENOrdering Facility: [facility] Address: [address] [place] [address] Performed By: #### 2 532-0 ####[facility] LABCLIA [id number] [place] [address] TYPE AND SCREENon 06-17-2022 TYPE AND SCREEN Negative Normal [facility] Comment on above: Performed By: #### T NS, PRBC #### [facility] [address] [place] [address] Dr. Benito To HEMOGLOBIN AND HEMATOCRITon 06-11-2022 Hematocrit (Bld) [Volume fraction] 21.3 % Critically low 42.0-54.0 [facility] Comment on above: Performed By: #### T NS, PRBC #### [facility] [address] [place] [address] Dr. Benito To Hemoglobin (Bld) [Mass/Vol] 7.1 g/dL Critically low 14.0-18.0 [facility] Comment on above: Performed By: #### T NS, PRBC #### [facility] [address] [place] [address] [address] Benito To TYPE AND SCREENon 06-11-2022 TYPE AND SCREEN Negative Normal [facility] Comment on above: Performed By: #### P RBC, TNS #### [facility] [address] [place] [address] [address] Benito To CBC W Auto Differential pane l (Bld)on 06-10-2022 Anisocytosis Ql (Bld) Present Normal [facility] Comment on above: Order Comment: Speci men Type: BLOOD SPECIMENOrdering Facility: [facility] Address: [address] [place] [address] Performed By: #### 5 7021-8 ####[facility] LABCLIA [id number] [address] LABCLIA [id number] [place] [address] [place] [place] Basophils (Bld) [#/Vol] 0.02 10*3/uL Normal <0.11 [facility] Comment on above: Order Comment: Speci men Type: BLOOD SPECIMENOrdering Facility: [facility] Address: [address] [place] [address] Performed By: #### 5 7021-8 ####[facility] LABCLIA [id number] [address] LABCLIA [id number] [place] [address] [place] Basophils/100 WBC (Bld) 2.0 % Normal [facility] Comment on above: Order Comment: Speci men Type: BLOOD SPECIMENOrdering Facility: [facility] Address: [address] [place] [address] Performed By: #### 5 7021-8 ####[facility] LABCLIA [id number] [address] LABCLIA [id number] [place] [address] [place] Differential cell count method Nom (Bld) Manual Normal [facility] Comment on above: Order Comment: Speci men Type: BLOOD SPECIMENOrdering Facility: [facility] Address: [address] [place] [address] Performed By: #### 5 7021-8 ####[facility] LABCLIA [id number] [address] LABCLIA [id number] [place] [address] [place] Eosinophils (Bld) [#/Vol] 0.03 10*3/uL Normal <0.46 [facility] Comment on above: Order Comment: Speci men Type: BLOOD SPECIMENOrdering Facility: [facility] Address: [address] [place] [address] Performed By: #### 5 7021-8 ####[facility] LABCLIA [id number] [address] LABCLIA [id number] [place] [address] [place] Eosinophils/100 WBC (Bld) 3.0 % Normal [facility] Comment on above: Order Comment: Speci men Type: BLOOD SPECIMENOrdering Facility: [facility] Address: [address] [place], [place] [address] Performed By: #### 5 7021-8 ####[facility] LABCLIA [id number] [address] LABCLIA [id number] [place] [address] [place] Erythrocyte distribution width (RBC) [Ratio] 21.2 % High 11.5-15.0 [facility] Comment on above: Order Comment: Speci men Type: BLOOD SPECIMENOrdering Facility: [facility] Address: [address] [place], [place] [address] Performed By: #### 5 7021-8 ####[facility] LABCLIA [id number] [address] LABCLIA [id number] [place] [address] [place] Hematocrit (Bld) [Volume fraction] 22.8 % Low 39.0-51.0 [facility] Comment on above: Order Comment: Speci men Type: BLOOD SPECIMENOrdering Facility: [facility] Address: [address] [place] [address] Performed By: #### 5 7021-8 ####[facility] LABCLIA [id number] [address] LABCLIA [id number] [place] [address] [place] Hemoglobin (Bld) [Mass/Vol] 7.3 g/dL Low 13.0-17.0 [facility] Comment on above: Order Comment: Speci men Type: BLOOD SPECIMENOrdering Facility: [facility] Address: [address] [place] [address] Performed By: #### 5 7021-8 ####[facility] LABCLIA [id number] [address] LABCLIA [id number] [place] [address] [place] Lymphocytes (Bld) [#/Vol] 0.64 10*3/uL Low 1.00-4.00 [facility] Comment on above: Order Comment: Speci men Type: BLOOD SPECIMENOrdering Facility: [facility] Address: [address] [place], [place] [address] Performed By: #### 5 7021-8 ####[facility] LABCLIA [id number] [address] LABCLIA [id number] [place] [address] [place] Lymphocytes/100 WBC (Bld) 55.0 % Normal [facility] Comment on above: Order Comment: Speci men Type: BLOOD SPECIMENOrdering Facility: [facility] Address: [address] [place] [address] Performed By: #### 5 7021-8 ####[facility] LABCLIA [id number] [address] LABCLIA [id number] [place] [address] [place] MCH (RBC) [Entitic mass] 32.4 pg Normal 26.0-34.0 [facility] Comment on above: Order Comment: Speci men Type: BLOOD SPECIMENOrdering Facility: [facility] Address: [address] [place] [address] Performed By: #### 5 7021-8 ####[facility] LABCLIA [id number] [address] LABCLIA [id number] [place] [address] [place] MCHC (RBC) [Mass/Vol] 32.0 g/dL Normal 30.5-36.0 [facility] Comment on above: Order Comment: Speci men Type: BLOOD SPECIMENOrdering Facility: [facility] Address: [address] [place] [address] Performed By: #### 5 7021-8 ####[facility] LABCLIA [id number] [address] LABCLIA [id number] [place] [address] [place] MCV (RBC) [Entitic vol] 101.3 fL High 80.0-100.0 [facility] Comment on above: Order Comment: Speci men Type: BLOOD SPECIMENOrdering Facility: [facility] Address: [address] [place], [place] [address] Performed By: #### 5 7021-8 ####[facility] LABCLIA [id number] [address] LABCLIA [id number] [place] [address] [place] Monocytes (Bld) [#/Vol] 0.14 10*3/uL Normal <0.87 [facility] Comment on above: Order Comment: Speci men Type: BLOOD SPECIMENOrdering Facility: [facility] Address: [address] [address] Performed By: #### 5 7021-8 ####[facility] LABCLIA [id number] [address] LABCLIA [id number] [place] [address] [place] Monocytes/100 WBC (Bld) 12.0 % Normal [facility] Comment on above: Order Comment: Speci men Type: BLOOD SPECIMENOrdering Facility: [facility] Address: [address] [address] Performed By: #### 5 7021-8 ####[facility] LABCLIA [id number] [address] LABCLIA [id number] [place] [address] [place] Neutrophils (Bld) [#/Vol] 0.32 10*3/uL Low 1.45-7.50 [facility] Comment on above: Order Comment: Speci men Type: BLOOD SPECIMENOrdering Facility: [facility] Address: [address] Performed By: #### 5 7021-8 ####[facility] LABCLIA [id number] [address] LABCLIA [id number] [place] [address] [place] Neutrophils/100 WBC (Bld) 28.0 % Normal [facility] Comment on above: Order Comment: Speci men Type: BLOOD SPECIMENOrdering Facility: [facility] Address: [address] [place] [address] Performed By: #### 5 7021-8 ####[facility] LABCLIA [id number] [address] LABCLIA [id number] [place] [address] [place] Nucleated RBC (Bld) [#/Vol] 10*3/uL Normal <0.01 [facility] Comment on above: Order Comment: Speci men Type: BLOOD SPECIMENOrdering Facility: [facility] Address: [address] [place] [address] Performed By: #### 5 7021-8 ####[facility] LABCLIA [id number] [address] LABCLIA [id number] [place] [address] [place] Nucleated RBC/100 WBC (Bld) [Ratio] 0.0 /100 WBC Normal [facility] Comment on above: Order Comment: Speci men Type: BLOOD SPECIMENOrdering Facility: [facility] Address: [address] [place], [place] [address] Performed By: #### 5 7021-8 ####[facility] LABCLIA [id number] [address] LABCLIA [id number] [place] [address] [place] Ovalocytes LM Ql (Bld) Few Normal [facility] Comment on above: Order Comment: Speci men Type: BLOOD SPECIMENOrdering Facility: [facility] Address: [address] [place] [address] Performed By: #### 5 7021-8 ####[facility] LABCLIA [id number] [place] [id number] LABCLIA [id number] [place] [address] [place] Platelet mean volume (Bld) [Entitic vol] Normal [facility] Comment on above: Order Comment: Speci men Type: BLOOD SPECIMENOrdering Facility: [facility] Address: [address] [place], [place] [address] Result Comment: Unab le to Report. Performed By: #### 5 7021-8 ####[facility] LABCLIA [id number] [address] LABCLIA [id number] [place] [address] [place] Platelets (Bld) [#/Vol] 40 10*3/uL Low 150-400 [facility] Comment on above: Order Comment: Speci men Type: BLOOD SPECIMENOrdering Facility: [facility] Address: [address] [place] [address] Result Comment: Samp le checked for clot Performed By: #### 5 7021-8 ####[facility] LABCLIA [id number] [address] LABCLIA [id number] [place] [address] [place] Platelets Estimate (Bld) [#/Vol] Decreased Normal [facility] Comment on above: Order Comment: Speci men Type: BLOOD SPECIMENOrdering Facility: [facility] Address: [address] [place] [address] Performed By: #### 5 7021-8 ####[facility] LABCLIA [id number] [address] LABCLIA [id number] [place] [address] [place] Polychromasia LM Ql (Bld) Slight Normal [facility] Comment on above: Order Comment: Speci men Type: BLOOD SPECIMENOrdering Facility: [facility] Address: [address] [place] [address] Performed By: #### 5 7021-8 ####[facility] LABCLIA [id number] [place] [id number] LABCLIA [id number] [place] [address] [place] RBC (Bld) [#/Vol] 2.25 10*6/uL Low 4.20-6.00 [facility] Comment on above: Order Comment: Speci men Type: BLOOD SPECIMENOrdering Facility: [facility] Address: [address] [place] [address] Performed By: #### 5 7021-8 ####[facility] LABCLIA [id number] [address] LABCLIA [id number] [place] [address] [place] RBC FRAGMENTS Few Abnormal None Seen [facility] Comment on above: Order Comment: Speci men Type: BLOOD SPECIMENOrdering Facility: [facility] Address: [address] [place] [address] Performed By: #### 5 7021-8 ####[facility] LABCLIA [id number] [place] [id number] LABCLIA [id number] [place] [address] [place] RED CELL MORPH Reviewed: see result s of individual morphologies Normal [facility] Comment on above: Order Comment: Speci men Type: BLOOD SPECIMENOrdering Facility: [facility] Address: [address] [place] [address] Performed By: #### 5 7021-8 ####[facility] LABCLIA [id number] [address] LABCLIA [id number] [place] [address] [place] WBC (Bld) [#/Vol] 1.16 10*3/uL Low 3.70-11.00 [facility] Comment on above: Order Comment: Speci men Type: BLOOD SPECIMENOrdering Facility: [facility] Address: [address] [address] Result Comment: [facility] Performed By: #### 5 7021-8 ####[facility] LABCLIA [id number] [place], [place] [address] LABCLIA [id number] [place] [address] [place] CNOVSPon 06-10-2022 CNOVSP Normal [facility] metabolic 2000 panelon 06-10-2022 Albumin [Mass/Vol] 4.0 g/dL Normal 3.9-4.9 [facility] Comment on above: Order Comment: Speci men Type: BLOOD SPECIMENOrdering Facility: [facility] Address: [address] [address] Performed By: #### 2 4323-8, 2532-0 ####[facility] LABIA [id number] [place] [address] ALP [Catalytic activity/Vol] 108 U/L Normal 38-113 [facility] Comment on above: Order Comment: Speci men Type: BLOOD SPECIMENOrdering Facility: [facility] Address: [address] Performed By: #### 2 4323-8, 2532-0 ####[facility] LABIA [id number] [place] [address] ALT [Catalytic activity/Vol] 40 U/L Normal 10-54 [facility] Comment on above: Order Comment: Speci men Type: BLOOD SPECIMENOrdering Facility: [facility] Address: [address] [address] Performed By: #### 2 432-8, 2531-0 ####[facility] LABCLIA [id number] [place] [address] Anion gap [Moles/Vol] 8 mmol/L Low 9-18 [facility] Comment on above: Order Comment: Speci men Type: BLOOD SPECIMENOrdering Facility: [facility] Address: [address] [place] [address] Performed By: #### 2 4328, 2531-0 ####[facility] LABCLIA [id number] [place] [address] AST [Catalytic activity/Vol] 18 U/L Normal 14-40 [facility] Comment on above: Order Comment: Speci men Type: BLOOD SPECIMENOrdering Facility: [facility] Address: [address] [place] [address] Performed By: #### 2 4328, 0 ####[facility] LABCLIA [id number] [place] [address] Bilirubin [Mass/Vol] 1.1 mg/dL Normal 0.2-1.3 [facility] Comment on above: Order Comment: Speci men Type: BLOOD SPECIMENOrdering Facility: [facility] Address: [address] [place] [address] Performed By: #### 2 4328, 0 ####[facility] LABCLIA [id number] [place] [address] Calcium [Mass/Vol] 9.0 mg/dL Normal 8.5-10.2 [facility] Comment on above: Order Comment: Speci men Type: BLOOD SPECIMENOrdering Facility: [facility] Address: [address] [place], [place] [address] Performed By: #### 2 4328, 2531-0 ####[facility] LABCLIA [id number] [place] [address] Chloride [Moles/Vol] 104 mmol/L Normal 97-105 [facility] Comment on above: Order Comment: Speci men Type: BLOOD SPECIMENOrdering Facility: [facility] Address: [address] [address] Performed By: #### 2 4323-8, ####[facility] LABCLIA [id number] [place] [address] CO2 [Moles/Vol] 30 mmol/L Normal 22-30 [facility] Comment on above: Order Comment: Speci men Type: BLOOD SPECIMENOrdering Facility: [facility] Address: [address] [place] [address] Performed By: #### 2 43238, ####[facility] LABCLIA [id number] [place] [address] Creatinine [Mass/Vol] 1.60 mg/dL High 0.73-1.22 [facility] Comment on above: Order Comment: Speci men Type: BLOOD SPECIMENOrdering Facility: [facility] Address: [address] [place] [address] Performed By: #### 2 4323-8, ####[facility] LABCLIA [id number] [place] [address] ESTIMATED GLOMERULAR FILTRATION RATE 42 mL/min/1.73m??? Low >=60 [facility] Comment on above: Order Comment: Speci men Type: BLOOD SPECIMENOrdering Facility: [facility] Address: [address] [place] [address] Result Comment: Faye mated Glomerular Filtration Rate (eGFR) is calculated using the 2020 CKD-EPI creatinine equation. This equation utilizes serum creatinine, sex, and age as parameters. The creatinine assay has traceable calibration to isotope dilution-mass spectrometry. Refer to KDIGO guidelines for clinical interpretation. In patients with unstable renal function, e.g. those with acute kidney injury, the eGFR may not accurately reflect actual GFR. Performed By: #### 2 4323-8, 0 ####[facility] LABCLIA [id number] [place] [address] Glucose [Mass/Vol] 139 mg/dL High 74-99 [facility] Comment on above: Order Comment: Speci men Type: BLOOD SPECIMENOrdering Facility: [facility] Address: [address] [place] [address] Result Comment: The [place] [employer] (ADA) provides guidance for cutoff values for fasting glucose and random glucose. The ADA defines fasting as no caloric intake for at least 8 hours. Fasting plasma glucose results between 100 to 125 mg/dL indicate increased risk for diabetes (prediabetes).Fasting plasma glucose results greater than or equal to 126 mg/dL meet the criteria for diagnosis of diabetes. In the absence of unequivocal hyperglycemia, results should be confirmed by repeat testing. In a patient with classic symptoms of hyperglycemia or hyperglycemic crisis, random plasma glucose results greater than or equal to 200 mg/dL meet the criteria for diagnosis of diabetes.Reference: Standards of Medical Care in Diabetes 2016, [place] [employer]. Diabetes Care. 2016.39(Suppl 1). Performed By: #### 2 4323-8, 0 ####[facility] LABCLIA [id number] [place] [address] Potassium [Moles/Vol] 3.8 mmol/L Normal 3.7-5.1 [facility] Comment on above: Order Comment: Speci men Type: BLOOD SPECIMENOrdering Facility: [facility] Address: [address] [place] [address] Performed By: #### 2 43238, 0 ####[facility] LABCLIA [id number] [place] [address] Protein [Mass/Vol] 6.4 g/dL Normal 6.3-8.0 [facility] Comment on above: Order Comment: Speci men Type: BLOOD SPECIMENOrdering Facility: [facility] Address: [address] [place] [address] Performed By: #### 2 43238, 0 ####[facility] LABCLIA [id number] [place] [address] Sodium [Moles/Vol] 142 mmol/L Normal 136-144 [facility] Comment on above: Order Comment: Speci men Type: BLOOD SPECIMENOrdering Facility: [facility] Address: [address] [place] [address] Performed By: #### 2 4323-8, 2532-0 ####[facility] LABCLIA [id number] [place] [address] Urea nitrogen [Mass/Vol] 27 mg/dL High 9-24 [facility] Comment on above: Order Comment: Speci men Type: BLOOD SPECIMENOrdering Facility: [facility] Address: [address] [place] [address] Performed By: #### 2 4323-8, 2532-0 ####[facility] LABCLIA [id number] [place] [address] LDH SerPl-cCncon 06-10-2022 LDH [Catalytic activity/Vol] 200 U/L Normal 135-225 [facility] Comment on above: Order Comment: Speci men Type: BLOOD SPECIMENOrdering Facility: [facility] Address: [address] [place] [address] Performed By: #### 2 4323-8, 2532-0 ####[facility] LABIA [id number] [place] [address] CNPNon 06-07-2022 CNPN Normal [facility] HEMOGLOBIN AND HEMATOCRITon 06-07-2022 Hematocrit (Bld) [Volume fraction] 23.0 % Critically low 42.0-54.0 [facility] Comment on above: Performed By: #### H H #### [facility] [address] [place] [address] [address] Benito To Hemoglobin (Bld) [Mass/Vol] 7.7 g/dL Critically low 14.0-18.0 [facility] Comment on above: Performed By: #### H H #### [facility] [address] [place] [address] Dr. Benito oT PRBC LEUKOREDUCEDon 06-06-20 ABO and Rh group Nom (Bld) Cross Match Result Compatible Unit Blood Type A Pos Unit Number [id number] Status Information Transfused Product ID Red Blood Cells Product Code [id number] Cross Match Result Compatible Unit Blood Type O Neg Unit Number [id number] Status Information Transfused Product ID Red Blood Cells Product Code [id number] Normal [facility] Comment on above: Performed By: #### H H #### [facility] [address] [address] [address] Benito To HEMOGLOBIN AND HEMATOCRITon 06-04-2022 Hematocrit (Bld) [Volume fraction] 20.4 % Critically low 42.0-54.0 [facility] Comment on above: Performed By: #### H GBHCT #### [facility] [address] [place] [address] Dr. Benito To Hemoglobin (Bld) [Mass/Vol] 6.5 g/dL Critically low 14.0-18.0 [facility] Comment on above: Performed By: #### H GBHCT #### [facility] [address] [address] [address] Benito To TYPE AND SCREENon 06-04-2022 TYPE AND SCREEN Negative Normal [facility] Comment on above: Performed By: #### H H #### [facility] [address] [address] [address] Benito To CBC W Auto Differential pane l (Bld)on 06-03-2022 Anisocytosis Ql (Bld) Present Normal [facility] Comment on above: Order Comment: Speci men Type: BLOOD SPECIMENOrdering Facility: [facility] Address: [address] [place], [place] [address] Performed By: #### 5 7021-8 ####[facility] LABCLIA [id number] [place], [place] [address] LABCLIA [id number] [facility] [id number] [address] [place] Basophils (Bld) [#/Vol] 0.02 10*3/uL Normal <0.11 [facility] Comment on above: Order Comment: Speci men Type: BLOOD SPECIMENOrdering Facility: [facility] Address: [address] [place] [address] Performed By: #### 5 7021-8 ####[facility] LABCLIA [id number] [address] LABCLIA [id number] [place] [address] [place] Basophils/100 WBC (Bld) 1.3 % Normal [facility] Comment on above: Order Comment: Speci men Type: BLOOD SPECIMENOrdering Facility: [facility] Address: [address] [place] [address] Performed By: #### 5 7021-8 ####[facility] LABCLIA [id number] [address] LABCLIA [id number] [place] [address] [place] Differential cell count method Nom (Bld) Manual Normal [facility] Comment on above: Order Comment: Speci men Type: BLOOD SPECIMENOrdering Facility: [facility] Address: [address] [place] [address] Performed By: #### 5 7021-8 ####[facility] LABCLIA [id number] [address] LABCLIA [id number] [place] [address] [place] Eosinophils (Bld) [#/Vol] 0.00 10*3/uL Normal <0.46 [facility] Comment on above: Order Comment: Speci men Type: BLOOD SPECIMENOrdering Facility: [facility] Address: [address] [place] [address] Performed By: #### 5 7021-8 ####[facility] LABCLIA [id number] [address] LABCLIA [id number] [place] [address] [place] Eosinophils/100 WBC (Bld) 0.0 % Normal [facility] Comment on above: Order Comment: Speci men Type: BLOOD SPECIMENOrdering Facility: [facility] Address: [address] [place] [address] Performed By: #### 5 7021-8 ####[facility] LABCLIA [id number] [address] LABCLIA [id number] [place] [address] [place] Erythrocyte distribution width (RBC) [Ratio] 23.2 % High 11.5-15.0 [facility] Comment on above: Order Comment: Speci men Type: BLOOD SPECIMENOrdering Facility: [facility] Address: [address] [place], [place] [address] Performed By: #### 5 7021-8 ####[facility] LABCLIA [id number] [address] LABCLIA [id number] [place] [address] [place] Hematocrit (Bld) [Volume fraction] 20.7 % Low 39.0-51.0 [facility] Comment on above: Order Comment: Speci men Type: BLOOD SPECIMENOrdering Facility: [facility] Address: [address] [place] [address] Performed By: #### 5 7021-8 ####[facility] LABCLIA [id number] [address] LABCLIA [id number] [place] [address] [place] Hemoglobin (Bld) [Mass/Vol] 6.5 g/dL Low 13.0-17.0 [facility] Comment on above: Order Comment: Speci men Type: BLOOD SPECIMENOrdering Facility: [facility] Address: [address] [place] [address] Performed By: #### 5 7021-8 ####[facility] LABCLIA [id number] [address] LABCLIA [id number] [place] [address] [place] Lymphocytes (Bld) [#/Vol] 0.82 10*3/uL Low 1.00-4.00 [facility] Comment on above: Order Comment: Speci men Type: BLOOD SPECIMENOrdering Facility: [facility] Address: [address] [place] [address] Performed By: #### 5 7021-8 ####[facility] LABCLIA [id number] [address] LABCLIA [id number] [place] [address] [place] Lymphocytes/100 WBC (Bld) 59.2 % Normal [facility] Comment on above: Order Comment: Speci men Type: BLOOD SPECIMENOrdering Facility: [facility] Address: [address] [place] [address] Performed By: #### 5 7021-8 ####[facility] LABCLIA [id number] [address] LABCLIA [id number] [place] [address] [place] MCH (RBC) [Entitic mass] 32.3 pg Normal 26.0-34.0 [facility] Comment on above: Order Comment: Speci men Type: BLOOD SPECIMENOrdering Facility: [facility] Address: [address] [place] [address] Performed By: #### 5 7021-8 ####[facility] LABCLIA [id number] [place] [address] LABCLIA [id number] [place] [address] [place] MCHC (RBC) [Mass/Vol] 31.4 g/dL Normal 30.5-36.0 [facility] Comment on above: Order Comment: Speci men Type: BLOOD SPECIMENOrdering Facility: [facility] Address: [address] [place] [address] Performed By: #### 5 7021-8 ####[facility] LABCLIA [id number] [address] LABCLIA [id number] [place] [address] [place] MCV (RBC) [Entitic vol] 103.0 fL High 80.0-100.0 [facility] Comment on above: Order Comment: Speci men Type: BLOOD SPECIMENOrdering Facility: [facility] Address: [address] [place], [place] [address] Performed By: #### 5 7021-8 ####[facility] LABCLIA [id number] [address] LABCLIA [id number] [place] [address] [place] Monocytes (Bld) [#/Vol] 0.09 10*3/uL Normal <0.87 [facility] Comment on above: Order Comment: Speci men Type: BLOOD SPECIMENOrdering Facility: [facility] Address: [address] [place], [place] [address] Performed By: #### 5 7021-8 ####[facility] LABCLIA [id number] [address] LABCLIA [id number] [place] [address] [place] Monocytes/100 WBC (Bld) 6.6 % Normal [facility] Comment on above: Order Comment: Speci men Type: BLOOD SPECIMENOrdering Facility: [facility] Address: [address] [place] [address] Performed By: #### 5 7021-8 ####[facility] LABCLIA [id number] [address] LABCLIA [id number] [place] [address] [place] MYELO% 0.4 % Normal [facility] Comment on above: Order Comment: Speci men Type: BLOOD SPECIMENOrdering Facility: [facility] Address: [address] [place] [address] Performed By: #### 5 7021-8 ####[facility] LABCLIA [id number] [address] LABCLIA [id number] [place] [address] [place] Neutrophils (Bld) [#/Vol] 0.45 10*3/uL Low 1.45-7.50 [facility] Comment on above: Order Comment: Speci men Type: BLOOD SPECIMENOrdering Facility: [facility] Address: [address] [place] [address] Performed By: #### 5 7021-8 ####[facility] LABCLIA [id number] [address] LABCLIA [id number] [place] [address] [place] Neutrophils/100 WBC (Bld) 32.5 % Normal [facility] Comment on above: Order Comment: Speci men Type: BLOOD SPECIMENOrdering Facility: [facility] Address: [address] [place] [address] Performed By: #### 5 7021-8 ####[facility] LABCLIA [id number] [address] LABCLIA [id number] [place] [address] [place] Nucleated RBC (Bld) [#/Vol] 10*3/uL Normal <0.01 [facility] Comment on above: Order Comment: Speci men Type: BLOOD SPECIMENOrdering Facility: [facility] Address: [address] [place] [address] Result Comment: This result was previously suppressed from the chart. Performed By: #### 5 7021-8 ####[facility] LABCLIA [id number] [address] LABCLIA [id number] [place] [address] [place] Nucleated RBC/100 WBC (Bld) [Ratio] 0.0 /100 WBC Normal [facility] Comment on above: Order Comment: Speci men Type: BLOOD SPECIMENOrdering Facility: [facility] Address: [address] [place] [address] Performed By: #### 5 7021-8 ####[facility] LABCLIA [id number] [address] LABCLIA [id number] [place] [address] [place] Ovalocytes LM Ql (Bld) Few Normal [facility] Comment on above: Order Comment: Speci men Type: BLOOD SPECIMENOrdering Facility: [facility] Address: [address] [place], [place] [address] Performed By: #### 5 7021-8 ####[facility] LABCLIA [id number] [address] LABCLIA [id number] [place] [address] [place] Platelet mean volume (Bld) [Entitic vol] Normal [facility] Comment on above: Order Comment: Speci men Type: BLOOD SPECIMENOrdering Facility: [facility] Address: [address] [place] [address] Result Comment: Unab le to Report. Performed By: #### 5 7021-8 ####[facility] LABCLIA [id number] [address] LABCLIA [id number] [place] [address] [place] Platelets (Bld) [#/Vol] 36 10*3/uL Low 150-400 [facility] Comment on above: Order Comment: Speci men Type: BLOOD SPECIMENOrdering Facility: [facility] Address: [address] [place] [address] Result Comment: Samp le checked for clot Performed By: #### 5 7021-8 ####[facility] LABCLIA [id number] [address] LABCLIA [id number] [place] [address] [place] Platelets Estimate (Bld) [#/Vol] Decreased Normal [facility] Comment on above: Order Comment: Speci men Type: BLOOD SPECIMENOrdering Facility: [facility] Address: [address] [place] [address] Performed By: #### 5 7021-8 ####[facility] LABCLIA [id number] [address] LABCLIA [id number] [place] [address] [place] Polychromasia LM Ql (Bld) Slight Normal [facility] Comment on above: Order Comment: Speci men Type: BLOOD SPECIMENOrdering Facility: [facility] Address: [address] [place] [address] Performed By: #### 5 7021-8 ####[facility] LABCLIA [id number] [address] LABCLIA [id number] [place] [address] [place] RBC (Bld) [#/Vol] 2.01 10*6/uL Low 4.20-6.00 [facility] Comment on above: Order Comment: Speci men Type: BLOOD SPECIMENOrdering Facility: [facility] Address: [address] [place] [address] Performed By: #### 5 7021-8 ####[facility] LABCLIA [id number] [address] LABCLIA [id number] [place] [address] [place] RED CELL MORPH Reviewed: see result s of individual morphologies Normal [facility] Comment on above: Order Comment: Speci men Type: BLOOD SPECIMENOrdering Facility: [facility] Address: [address] [place] [address] Performed By: #### 5 7021-8 ####[facility] LABCLIA [id number] [address] LABCLIA [id number] [place] [address] [place] Variant lymphocytes/100 WBC (Bld) 0.0 % Normal [facility] Comment on above: Order Comment: Speci men Type: BLOOD SPECIMENOrdering Facility: [facility] Address: [address] [place], [place] [address] Performed By: #### 5 7021-8 ####[facility] LABCLIA [id number] [address] LABCLIA [id number] [place] [address] [place] WBC (Bld) [#/Vol] 1.39 10*3/uL Low 3.70-11.00 [facility] Comment on above: Order Comment: Speci men Type: BLOOD SPECIMENOrdering Facility: [facility] Address: [address] Result Comment: [facility] le checked for clot Performed By: #### 5 7021-8 ####[facility] LABCLIA [id number] [place], [place] [address] LABCLIA [id number] [place] [address] [place] WBC Left Shift Ql (Bld) Present Normal [facility] Comment on above: Order Comment: Speci men Type: BLOOD SPECIMENOrdering Facility: [facility] Address: [address] Performed By: #### 5 7021-8 ####[facility] LABCLIA [id number] [place] [address] LABCLIA [id number] [place] [address] [place] CNOVSPon 06-03-2022 CNOVSP Normal [facility] CNPNon 06-03-2022 CNPN Normal [facility] Comprehensive metabolic 2000 panelon 06-03-2022 Albumin [Mass/Vol] 3.7 g/dL Low 3.9-4.9 [facility] Comment on above: Order Comment: Speci men Type: BLOOD SPECIMENOrdering Facility: [facility] Address: [address] Performed By: #### 2 4323-8, 2531-0 ####[facility] LABCLIA [id number] [place] [address] ALP [Catalytic activity/Vol] 105 U/L Normal 38-113 [facility] Comment on above: Order Comment: Speci men Type: BLOOD SPECIMENOrdering Facility: [facility] Address: [address] Performed By: #### 2 4323-8, 2532-0 ####[facility] LABCLIA [id number] [place] [address] ALT [Catalytic activity/Vol] 47 U/L Normal 10-54 [facility] Comment on above: Order Comment: Speci men Type: BLOOD SPECIMENOrdering Facility: [facility] Address: [address] [place] [address] Performed By: #### 2 4323-8, 2531-0 ####[facility] LABCLIA [id number] [place] [address] Anion gap [Moles/Vol] 10 mmol/L Normal 9-18 [facility] Comment on above: Order Comment: Speci men Type: BLOOD SPECIMENOrdering Facility: [facility] Address: [address] [place] [address] Performed By: #### 2 4323-8, 2531-0 ####[facility] LABCLIA [id number] [place] [address] AST [Catalytic activity/Vol] 23 U/L Normal 14-40 [facility] Comment on above: Order Comment: Speci men Type: BLOOD SPECIMENOrdering Facility: [facility] Address: [address] [place] [address] Performed By: #### 2 4323-8, 2531-0 ####[facility] LABCLIA [id number] [place] [address] Bilirubin [Mass/Vol] 0.6 mg/dL Normal 0.2-1.3 [facility] Comment on above: Order Comment: Speci men Type: BLOOD SPECIMENOrdering Facility: [facility] Address: [address] [place] [address] Performed By: #### 2 4323-8, 2531-0 ####[facility] LABCLIA [id number] [place] [address] Calcium [Mass/Vol] 8.8 mg/dL Normal 8.5-10.2 [facility] Comment on above: Order Comment: Speci men Type: BLOOD SPECIMENOrdering Facility: [facility] Address: [address] [place] [address] Performed By: #### 2 4323-8, 2531-0 ####[facility] LABCLIA [id number] [place] [address] Chloride [Moles/Vol] 103 mmol/L Normal 97-105 [facility] Comment on above: Order Comment: Speci men Type: BLOOD SPECIMENOrdering Facility: [facility] Address: [address] [place] [address] Performed By: #### 2 4323-8, 2531-0 ####[facility] LABCLIA [id number] [place] [address] CO2 [Moles/Vol] 27 mmol/L Normal 22-30 [facility] Comment on above: Order Comment: Speci men Type: BLOOD SPECIMENOrdering Facility: [facility] Address: [address] [place] [address] Performed By: #### 2 4323-8, 2531-0 ####[facility] LABCLIA [id number] [place] [address] Creatinine [Mass/Vol] 1.57 mg/dL High 0.73-1.22 [facility] Comment on above: Order Comment: Speci men Type: BLOOD SPECIMENOrdering Facility: [facility] Address: [address] [place] [address] Performed By: #### 2 4323-8, 0 ####[facility] LABIA [id number] [place] [address] ESTIMATED GLOMERULAR FILTRATION RATE 43 mL/min/1.73m??? Low >=60 [facility] Comment on above: Order Comment: Speci men Type: BLOOD SPECIMENOrdering Facility: [facility] Address: [address] [place] [address] Result Comment: Faye mated Glomerular Filtration Rate (eGFR) is calculated using the 2020 CKD-EPI creatinine equation. This equation utilizes serum creatinine, sex, and age as parameters. The creatinine assay has traceable calibration to isotope dilution-mass spectrometry. Refer to KDIGO guidelines for clinical interpretation. In patients with unstable renal function, e.g. those with acute kidney injury, the eGFR may not accurately reflect actual GFR. Performed By: #### 2 4323-8, ####[facility] LABCLIA [id number] [place] [address] Glucose [Mass/Vol] 152 mg/dL High 74-99 [facility] Comment on above: Order Comment: Speci men Type: BLOOD SPECIMENOrdering Facility: [facility] Address: [address] [place] [address] Result Comment: The [place] [employer] (ADA) provides guidance for cutoff values for fasting glucose and random glucose. The ADA defines fasting as no caloric intake for at least 8 hours. Fasting plasma glucose results between 100 to 125 mg/dL indicate increased risk for diabetes (prediabetes).Fasting plasma glucose results greater than or equal to 126 mg/dL meet the criteria for diagnosis of diabetes. In the absence of unequivocal hyperglycemia, results should be confirmed by repeat testing. In a patient with classic symptoms of hyperglycemia or hyperglycemic crisis, random plasma glucose results greater than or equal to 200 mg/dL meet the criteria for diagnosis of diabetes.Reference: Standards of Medical Care in Diabetes 2016, [place] [employer]. Diabetes Care. 2016.39(Suppl 1). Performed By: #### 2 4328, ####[facility] LABCLIA [id number] [place] [address] Potassium [Moles/Vol] 4.2 mmol/L Normal 3.7-5.1 [facility] Comment on above: Order Comment: Speci men Type: BLOOD SPECIMENOrdering Facility: [facility] Address: [address] [place] [address] Performed By: #### 2 4328, 0 ####[facility] LABCLIA [id number] [place] [address] Protein [Mass/Vol] 6.2 g/dL Low 6.3-8.0 [facility] Comment on above: Order Comment: Speci men Type: BLOOD SPECIMENOrdering Facility: [facility] Address: [address] [place] [address] Performed By: #### 2 4323-8, 2531-0 ####[facility] LABCLIA [id number] [place] [address] Sodium [Moles/Vol] 140 mmol/L Normal 136-144 [facility] Comment on above: Order Comment: Speci men Type: BLOOD SPECIMENOrdering Facility: [facility] Address: [address] [place] [address] Performed By: #### 2 4323-8, 2531-0 ####[facility] LABCLIA [id number] [place] [address] Urea nitrogen [Mass/Vol] 24 mg/dL Normal 9-24 [facility] Comment on above: Order Comment: Speci men Type: BLOOD SPECIMENOrdering Facility: [facility] Address: [address] [place] [address] Performed By: #### 2 4323-8, 2531-0 ####[facility] LABIA [id number] [place] [address] [facility]20[facility] LDH [Catalytic activity/Vol] 199 U/L Normal 135-225 [facility] Comment on above: Order Comment: Speci men Type: BLOOD SPECIMENOrdering Facility: [facility] Address: [address] [place] [address] Performed By: #### 2 4323-8, 253-0 ####[facility] LABIA [id number] [place] [address] PRBC LEUKOREDUCEDon 05-28-20 PRBC LEUKOREDUCED Cross Match Result Compatible Unit Blood Type A Pos Unit Number [id number] Status Information Transfused Product ID Red Blood Cells Product Code [id number] Normal [facility] Comment on above: Performed By: #### T NS, PRBC #### [facility] [address] [place], [place] [address] Dr. Benito To CBC W Auto Differential pane l (Bld)on 05-27-2022 Anisocytosis Ql (Bld) Present Normal [facility] Comment on above: Order Comment: Speci men Type: BLOOD SPECIMENOrdering Facility: [facility] Address: [address] [place] [address] Performed By: #### 5 7021-8 ####[facility] LABCLIA [id number] [address] LABCLIA [id number] [place] [address] Basophils (Bld) [#/Vol] 0.00 10*3/uL Normal <0.11 [facility] Comment on above: Order Comment: Speci men Type: BLOOD SPECIMENOrdering Facility: [facility] Address: [address] [place], [place] [address] Performed By: #### 5 7021-8 ####[facility] LABCLIA [id number] [address] LABCLIA [id number] [place] [address] Basophils/100 WBC (Bld) 0.0 % Normal [facility] Comment on above: Order Comment: Speci men Type: BLOOD SPECIMENOrdering Facility: [facility] Address: [address] [place], [place] [address] Performed By: #### 5 7021-8 ####[facility] LABCLIA [id number] [address] LABCLIA [id number] [place] [address] Dacrocytes LM Ql (Bld) Few Normal [facility] Comment on above: Order Comment: Speci men Type: BLOOD SPECIMENOrdering Facility: [facility] Address: [address] [place], [place] [address] Performed By: #### 5 7021-8 ####[facility] LABCLIA [id number] [address] LABCLIA [id number] [place] [address] Differential cell count method Nom (Bld) Manual Normal [facility] Comment on above: Order Comment: Speci men Type: BLOOD SPECIMENOrdering Facility: [facility] Address: [address] Performed By: #### 5 7021-8 ####[facility] LABCLIA [id number] [address] LABCLIA [id number] [place] [address] Eosinophils (Bld) [#/Vol] 0.03 10*3/uL Normal <0.46 [facility] Comment on above: Order Comment: Speci men Type: BLOOD SPECIMENOrdering Facility: [facility] Address: [address] [place] [address] Performed By: #### 5 7021-8 ####[facility] LABCLIA [id number] [address] LABCLIA [id number] [place] [address] Eosinophils/100 WBC (Bld) 3.0 % Normal [facility] Comment on above: Order Comment: Speci men Type: BLOOD SPECIMENOrdering Facility: [facility] Address: [address] [place] [address] Performed By: #### 5 7021-8 ####[facility] LABCLIA [id number] [address] LABCLIA [id number] [place] [address] Erythrocyte distribution width (RBC) [Ratio] 23.3 % High 11.5-15.0 [facility] Comment on above: Order Comment: Speci men Type: BLOOD SPECIMENOrdering Facility: [facility] Address: [address] [place] [address] Performed By: #### 5 7021-8 ####[facility] LABCLIA [id number] [address] LABCLIA [id number] [place] [address] Hematocrit (Bld) [Volume fraction] 23.6 % Low 39.0-51.0 [facility] Comment on above: Order Comment: Speci men Type: BLOOD SPECIMENOrdering Facility: [facility] Address: [address] [place] [address] Performed By: #### 5 7021-8 ####[facility] LABCLIA [id number] [address] LABCLIA [id number] [place] [address] Hemoglobin (Bld) [Mass/Vol] 7.6 g/dL Low 13.0-17.0 [facility] Comment on above: Order Comment: Speci men Type: BLOOD SPECIMENOrdering Facility: [facility] Address: [address] [place] [address] Performed By: #### 5 7021-8 ####[facility] LABCLIA [id number] [address] LABIA [id number] [place] [address] Lymphocytes (Bld) [#/Vol] 0.51 10*3/uL Low 1.00-4.00 [facility] Comment on above: Order Comment: Speci men Type: BLOOD SPECIMENOrdering Facility: [facility] Address: [address] [place] [address] Performed By: #### 5 7021-8 ####[facility] LABCLIA [id number] [address] LABCLIA [id number] [place] [address] Lymphocytes/100 WBC (Bld) 47.0 % Normal [facility] Comment on above: Order Comment: Speci men Type: BLOOD SPECIMENOrdering Facility: [facility] Address: [address] [place] [address] Performed By: #### 5 7021-8 ####[facility] LABCLIA [id number] [address] LABCLIA [id number] [place] [address] MCH (RBC) [Entitic mass] 33.0 pg Normal 26.0-34.0 [facility] Comment on above: Order Comment: Speci men Type: BLOOD SPECIMENOrdering Facility: [facility] Address: [address] [place] [address] Performed By: #### 5 7021-8 ####[facility] LABCLIA [id number] [address] LABCLIA [id number] [place] [address] MCHC (RBC) [Mass/Vol] 32.2 g/dL Normal 30.5-36.0 [facility] Comment on above: Order Comment: Speci men Type: BLOOD SPECIMENOrdering Facility: [facility] Address: [address] [place], [place] [address] Performed By: #### 5 7021-8 ####[facility] LABCLIA [id number] [address] LABCLIA [id number] [place] [address] MCV (RBC) [Entitic vol] 102.6 fL High 80.0-100.0 [facility] Comment on above: Order Comment: Speci men Type: BLOOD SPECIMENOrdering Facility: [facility] Address: [address] [place] [address] Performed By: #### 5 7021-8 ####[facility] LABCLIA [id number] [address] LABCLIA [id number] [place] [address] Monocytes (Bld) [#/Vol] 0.14 10*3/uL Normal <0.87 [facility] Comment on above: Order Comment: Speci men Type: BLOOD SPECIMENOrdering Facility: [facility] Address: [address] [place] [address] Performed By: #### 5 7021-8 ####[facility] LABCLIA [id number] [address] LABCLIA [id number] [place] [address] Monocytes/100 WBC (Bld) 13.0 % Normal [facility] Comment on above: Order Comment: Speci men Type: BLOOD SPECIMENOrdering Facility: [facility] Address: [address] [place] [address] Performed By: #### 5 7021-8 ####[facility] LABCLIA [id number] [address] LABCLIA [id number] [place] [address] Neutrophils (Bld) [#/Vol] 0.40 10*3/uL Low 1.45-7.50 [facility] Comment on above: Order Comment: Speci men Type: BLOOD SPECIMENOrdering Facility: [facility] Address: [address] [place], [place] [address] Performed By: #### 5 7021-8 ####[facility] LABCLIA [id number] [address] LABCLIA [id number] [place] [address] Neutrophils/100 WBC (Bld) 37.0 % Normal [facility] Comment on above: Order Comment: Speci men Type: BLOOD SPECIMENOrdering Facility: [facility] Address: [address] [place] [address] Performed By: #### 5 7021-8 ####[facility] LABCLIA [id number] [address] LABCLIA [id number] [place] [address] Nucleated RBC (Bld) [#/Vol] 10*3/uL Normal <0.01 [facility] Comment on above: Order Comment: Speci men Type: BLOOD SPECIMENOrdering Facility: [facility] [facility] Address: [address] [place] [address] Performed By: #### 5 7021-8 ####[facility] LABCLIA [id number] [address] LABCLIA [id number] [place] [address] Nucleated RBC/100 WBC (Bld) [Ratio] 0.0 /100 WBC Normal [facility] Comment on above: Order Comment: Speci men Type: BLOOD SPECIMENOrdering Facility: [facility] Address: [address] [place] [address] Performed By: #### 5 7021-8 ####[facility] LABCLIA [id number] [address] LABCLIA [id number] [place] [address] Ovalocytes LM Ql (Bld) Few Normal [facility] Comment on above: Order Comment: Speci men Type: BLOOD SPECIMENOrdering Facility: [facility] Address: [address] [place] [address] Performed By: #### 5 7021-8 ####[facility] LABCLIA [id number] [address] LABCLIA [id number] [place] [address] Platelet mean volume (Bld) [Entitic vol] Normal [facility] Comment on above: Order Comment: Speci men Type: BLOOD SPECIMENOrdering Facility: [facility] Address: [address] [place] [address] Result Comment: Unab le to Report. Performed By: #### 5 7021-8 ####[facility] LABCLIA [id number] [address] LABCLIA [id number] [place] [address] Platelets (Bld) [#/Vol] 52 10*3/uL Low 150-400 [facility] Comment on above: Order Comment: Speci men Type: BLOOD SPECIMENOrdering Facility: [facility] Address: [address] [place] [address] Result Comment: Resu lts checked and verified. No clot detected Performed By: #### 5 7021-8 ####[facility] LABCLIA [id number] [address] LABCLIA [id number] [place] [address] Platelets Estimate (Bld) [#/Vol] Decreased Normal [facility] Comment on above: Order Comment: Speci men Type: BLOOD SPECIMENOrdering Facility: [facility] Address: [address] [place] [address] Performed By: #### 5 7021-8 ####[facility] LABCLIA [id number] [address] LABCLIA [id number] [place] [address] RBC (Bld) [#/Vol] 2.30 10*6/uL Low 4.20-6.00 [facility] Comment on above: Order Comment: Speci men Type: BLOOD SPECIMENOrdering Facility: [facility] Address: [address] [place] [address] Performed By: #### 5 7021-8 ####[facility] LABCLIA [id number] [address] LABCLIA [id number] [place] [address] RBC FRAGMENTS Few Abnormal None Seen [facility] Comment on above: Order Comment: Speci men Type: BLOOD SPECIMENOrdering Facility: [facility] Address: [address] [place] [address] Performed By: #### 5 7021-8 ####[facility] LABCLIA [id number] [address] LABCLIA [id number] [place] [address] RED CELL MORPH Reviewed: see result s of individual morphologies Normal [facility] Comment on above: Order Comment: Speci men Type: BLOOD SPECIMENOrdering Facility: [facility] Address: [address] [place] [address] Performed By: #### 5 7021-8 ####[facility] LABCLIA [id number] [address] LABCLIA [id number] [place] [address] WBC (Bld) [#/Vol] 1.09 10*3/uL Low 3.70-11.00 [facility] Comment on above: Order Comment: Speci men Type: BLOOD SPECIMENOrdering Facility: [facility] Address: [address] [place] [address] Result Comment: Resu lts checked and verified. No clot detected Performed By: #### 5 7021-8 ####[facility] LABCLIA [id number] [facility] [id number] [id number] [facility] LABCLIA [id number] [place] [address] Comprehensive metabolic 2000 panelon 05-27-2022 Albumin [Mass/Vol] 4.0 g/dL Normal 3.9-4.9 [facility] Comment on above: Order Comment: Speci men Type: BLOOD SPECIMENOrdering Facility: [facility] Address: [address] [place] [address] Performed By: #### 2 4323-8, 2532-0 ####[facility] LABCLIA [id number] [place] [address] ALP [Catalytic activity/Vol] 105 U/L Normal 38-113 [facility] Comment on above: Order Comment: Speci men Type: BLOOD SPECIMENOrdering Facility: [facility] Address: [address] [place] [address] Performed By: #### 2 4323-8, 2532-0 ####[facility] LABCLIA [id number] [place] [address] ALT [Catalytic activity/Vol] 45 U/L Normal 10-54 [facility] Comment on above: Order Comment: Speci men Type: BLOOD SPECIMENOrdering Facility: [facility] Address: [address] [place], [place] [address] Performed By: #### 2 4323-8, 2532-0 ####[facility] LABCLIA [id number] [place] [address] Anion gap [Moles/Vol] 6 mmol/L Low 9-18 [facility] Comment on above: Order Comment: Speci men Type: BLOOD SPECIMENOrdering Facility: [facility] Address: [address] [address] Performed By: #### 2 432-8, 0 ####[facility] LABCLIA [id number] [place] [address] AST [Catalytic activity/Vol] 18 U/L Normal 14-40 [facility] Comment on above: Order Comment: Speci men Type: BLOOD SPECIMENOrdering Facility: [facility] Address: [address] [place] [address] Performed By: #### 2 4328, 2531-0 ####[facility] LABCLIA [id number] [place] [address] Bilirubin [Mass/Vol] 0.9 mg/dL Normal 0.2-1.3 [facility] Comment on above: Order Comment: Speci men Type: BLOOD SPECIMENOrdering Facility: [facility] Address: [address] [place] [address] Performed By: #### 2 4328, 0 ####[facility] LABIA [id number] [place] [address] Calcium [Mass/Vol] 8.7 mg/dL Normal 8.5-10.2 [facility] Comment on above: Order Comment: Speci men Type: BLOOD SPECIMENOrdering Facility: [facility] Address: [address] [place] [address] Performed By: #### 2 4328, 2531-0 ####[facility] LABIA [id number] [place] [address] Chloride [Moles/Vol] 106 mmol/L High 97-105 [facility] Comment on above: Order Comment: Speci men Type: BLOOD SPECIMENOrdering Facility: [facility] Address: [address] [place] [address] Performed By: #### 2 4328, 2531-0 ####[facility] LABCLIA [id number] [place] [address] CO2 [Moles/Vol] 33 mmol/L High 22-30 [facility] Comment on above: Order Comment: Speci men Type: BLOOD SPECIMENOrdering Facility: [facility] Address: [address] [place] [address] Performed By: #### 2 4323-8, 2531-0 ####[facility] LABIA [id number] [place] [address] Creatinine [Mass/Vol] 1.64 mg/dL High 0.73-1.22 [facility] Comment on above: Order Comment: Speci men Type: BLOOD SPECIMENOrdering Facility: [facility] Address: [address] [place] [address] Performed By: #### 2 43238, 2531-0 ####[facility] LABIA [id number] [place] [address] ESTIMATED GLOMERULAR FILTRATION RATE 41 mL/min/1.73m??? Low >=60 [facility] Comment on above: Order Comment: Speci men Type: BLOOD SPECIMENOrdering Facility: [facility] Address: [address] [place] [address] Result Comment: Faye mated Glomerular Filtration Rate (eGFR) is calculated using the 2020 CKD-EPI creatinine equation. This equation utilizes serum creatinine, sex, and age as parameters. The creatinine assay has traceable calibration to isotope dilution-mass spectrometry. Refer to KDIGO guidelines for clinical interpretation. In patients with unstable renal function, e.g. those with acute kidney injury, the eGFR may not accurately reflect actual GFR. Performed By: #### 2 4323-8, 2531-0 ####[facility] LABIA [id number] [place] [address] Glucose [Mass/Vol] 130 mg/dL High 74-99 [facility] Comment on above: Order Comment: Speci men Type: BLOOD SPECIMENOrdering Facility: [facility] Address: [address] [address] Result Comment: The [place] [employer] (ADA) provides guidance for cutoff values for fasting glucose and random glucose. The ADA defines fasting as no caloric intake for at least 8 hours. Fasting plasma glucose results between 100 to 125 mg/dL indicate increased risk for diabetes (prediabetes).Fasting plasma glucose results greater than or equal to 126 mg/dL meet the criteria for diagnosis of diabetes. In the absence of unequivocal hyperglycemia, results should be confirmed by repeat testing. In a patient with classic symptoms of hyperglycemia or hyperglycemic crisis, random plasma glucose results greater than or equal to 200 mg/dL meet the criteria for diagnosis of diabetes.Reference: Standards of Medical Care in Diabetes 2016, [place] [employer]. Diabetes Care. 2016.39(Suppl 1). Performed By: #### 2 4323-8, 0 ####[facility] LABCLIA [id number] [place] [address] Potassium [Moles/Vol] 3.5 mmol/L Low 3.7-5.1 [facility] Comment on above: Order Comment: Speci men Type: BLOOD SPECIMENOrdering Facility: [facility] Address: [address] Performed By: #### 2 4323-8, 0 ####[facility] LABCLIA [id number] [place] [address] Protein [Mass/Vol] 6.4 g/dL Normal 6.3-8.0 [facility] Comment on above: Order Comment: Speci men Type: BLOOD SPECIMENOrdering Facility: [facility] Address: [address] [address] Performed By: #### 2 4323-8, 0 ####[facility] LABCLIA [id number] [place] [address] Sodium [Moles/Vol] 145 mmol/L High 136-144 [facility] Comment on above: Order Comment: Speci men Type: BLOOD SPECIMENOrdering Facility: [facility] Address: [address] [address] Performed By: #### 2 4323-8, 2532-0 ####[facility] LABCLIA [id number] [place] [address] Urea nitrogen [Mass/Vol] 25 mg/dL High 9-24 [facility] Comment on above: Order Comment: Speci men Type: BLOOD SPECIMENOrdering Facility: [facility] Address: [place] [address] Performed By: #### 2 4323-8, 0 ####[facility] LABCLIA [id number] [place] [address] Albumin [Mass/Vol] 4.0 g/dL 3.9 - 4.9 g/dL [facility] ALP [Catalytic activity/Vol] 105 U/L 38 - 113 U/L [facility] ALT [Catalytic activity/Vol] 45 U/L 10 - 54 U/L [facility] Anion gap [Moles/Vol] 6 mmol/L Low 9 - 18 mmol/L [facility] AST [Catalytic activity/Vol] 18 U/L 14 - 40 U/L [facility] Bilirubin [Mass/Vol] 0.9 mg/dL 0.2 - 1.3 mg/dL [facility] Calcium [Mass/Vol] 8.7 mg/dL 8.5 - 10.2 mg/dL [facility] Chloride [Moles/Vol] 106 mmol/L High 97 - 105 mmol/L [facility] CO2 [Moles/Vol] 33 mmol/L High 22 - 30 mmol/L [facility] Creatinine [Mass/Vol] 1.64 mg/dL High 0.73 - 1.22 mg/dL [facility] Estimated Glomerular Filtration Rate 41 mL/min/1.73m Low >=60 mL/min/1.73m [facility] Glucose [Mass/Vol] 130 mg/dL High 74 - 99 mg/dL [facility] Potassium [Moles/Vol] 3.5 mmol/L Low 3.7 - 5.1 mmol/L [facility] Protein [Mass/Vol] 6.4 g/dL 6.3 - 8.0 g/dL [facility] Sodium [Moles/Vol] 145 mmol/L High 136 - 144 mmol/L [facility] Urea nitrogen [Mass/Vol] 25 mg/dL High 9 - 24 mg/dL [facility] LD LACTATE DEHYDROon 022 LDH [Catalytic activity/Vol] 209 U/L 135 - 225 U/L [facility] LDH SerPl-cCncon 05-27-2022 LDH [Catalytic activity/Vol] 209 U/L Normal 135-225 [facility] Comment on above: Order Comment: Speci men Type: BLOOD SPECIMENOrdering Facility: [facility] Address: [address] [place] [address] [place] [address] Performed By: #### 2 4323-8, 2532-0 ####[facility] LABCLIA [id number] [place] [address] CNPNon 05-23-2022 CNPN Normal [facility] HEMOGLOBIN AND HEMATOCRITon 05-23-2022 Hematocrit (Bld) [Volume fraction] 22.7 % Critically low 42.0-54.0 [facility] Comment on above: Performed By: #### T NS, PRBC #### [facility] [address] [address] [address] Benito To Hemoglobin (Bld) [Mass/Vol] 7.3 g/dL Critically low 14.0-18.0 [facility] Comment on above: Performed By: #### T NS, PRBC #### [facility] [address] [address] [address] Benito To TYPE AND SCREENon 05-23-2022 TYPE AND SCREEN Negative Normal [facility] Comment on above: Performed By: #### T NS, PRBC #### [facility] [address] [address] [address] Benito To HISTORY PHYSICALon HISTORY PHYSICAL HNO ID: [id number] Author: Elysia Esposito MD Service: ? Author Type: Physician Type: HANDP Filed: 05/26/2022 11:07 AM Note Text: Please see transcribed note Normal [facility] CBC W Auto Differential pane l (Bld)on 10-24-2022 Anisocytosis Ql (Bld) Present Normal [facility] Comment on above: Order Comment: Speci men Type: BLOOD SPECIMENOrdering Facility: [facility] Address: [address] [place] [address] Performed By: #### 5 7021-8 ####[facility] LABCLIA [id number] [address] LABCLIA [id number] [place] [address] Basophils (Bld) [#/Vol] 0.01 10*3/uL Normal <0.11 [facility] Comment on above: Order Comment: Speci men Type: BLOOD SPECIMENOrdering Facility: [facility] Address: [address] [place] [address] Performed By: #### 5 7021-8 ####[facility] LABCLIA [id number] [address] LABCLIA [id number] [place] [address] Basophils/100 WBC (Bld) 0.5 % Normal [facility] Comment on above: Order Comment: Speci men Type: BLOOD SPECIMENOrdering Facility: [facility] Address: [address] [place] [address] Performed By: #### 5 7021-8 ####[facility] LABCLIA [id number] [address] LABCLIA [id number] [place] [address] Dacrocytes LM Ql (Bld) Few Normal [facility] Comment on above: Order Comment: Speci men Type: BLOOD SPECIMENOrdering Facility: [facility] Address: [address] [place] [address] Performed By: #### 5 7021-8 ####[facility] LABCLIA [id number] [address] LABCLIA [id number] [place] [address] Differential cell count method Nom (Bld) Manual Normal [facility] Comment on above: Order Comment: Speci men Type: BLOOD SPECIMENOrdering Facility: [facility] Address: [address] [place] [address] Performed By: #### 5 7021-8 ####[facility] LABCLIA [id number] [address] LABCLIA [id number] [place] [address] Eosinophils (Bld) [#/Vol] 0.03 10*3/uL Normal <0.46 [facility] Comment on above: Order Comment: Speci men Type: BLOOD SPECIMENOrdering Facility: [facility] Address: [address] [place] [address] Performed By: #### 5 7021-8 ####[facility] LABCLIA [id number] [address] LABCLIA [id number] [place] [address] Eosinophils/100 WBC (Bld) 1.5 % Normal [facility] Comment on above: Order Comment: Speci men Type: BLOOD SPECIMENOrdering Facility: [facility] Address: [address] [place], [place] [address] Performed By: #### 5 7021-8 ####[facility] LABCLIA [id number] [address] LABCLIA [id number] [place] [address] Erythrocyte distribution width (RBC) [Ratio] 23.9 % High 11.5-15.0 [facility] Comment on above: Order Comment: Speci men Type: BLOOD SPECIMENOrdering Facility: [facility] Address: [address] [place] [address] Performed By: #### 5 7021-8 ####[facility] LABCLIA [id number] [address] LABCLIA [id number] [place] [address] Hematocrit (Bld) [Volume fraction] 23.9 % Low 39.0-51.0 [facility] Comment on above: Order Comment: Speci men Type: BLOOD SPECIMENOrdering Facility: [facility] Address: [address] [place] [address] Performed By: #### 5 7021-8 ####[facility] LABCLIA [id number] [address] LABCLIA [id number] [place] [address] Hemoglobin (Bld) [Mass/Vol] 7.6 g/dL Low 13.0-17.0 [facility] Comment on above: Order Comment: Speci men Type: BLOOD SPECIMENOrdering Facility: [facility] Address: [address] [place] [address] Performed By: #### 5 7021-8 ####[facility] LABCLIA [id number] [address] LABCLIA [id number] [place] [address] Lymphocytes (Bld) [#/Vol] 0.71 10*3/uL Low 1.00-4.00 [facility] Comment on above: Order Comment: Speci men Type: BLOOD SPECIMENOrdering Facility: [facility] Address: [address] [place] [address] Performed By: #### 5 7021-8 ####[facility] LABCLIA [id number] [address] LABCLIA [id number] [place] [address] Lymphocytes/100 WBC (Bld) 40.8 % Normal [facility] Comment on above: Order Comment: Speci men Type: BLOOD SPECIMENOrdering Facility: [facility] Address: [address] [place] [address] Performed By: #### 5 7021-8 ####[facility] LABCLIA [id number] [address] LABCLIA [id number] [place] [address] MCH (RBC) [Entitic mass] 33.0 pg Normal 26.0-34.0 [facility] Comment on above: Order Comment: Speci men Type: BLOOD SPECIMENOrdering Facility: [facility] Address: [address] [place] [address] Performed By: #### 5 7021-8 ####[facility] LABCLIA [id number] [address] LABCLIA [id number] [place] [address] MCHC (RBC) [Mass/Vol] 31.8 g/dL Normal 30.5-36.0 [facility] Comment on above: Order Comment: Speci men Type: BLOOD SPECIMENOrdering Facility: [facility] Address: [address] [place] [address] Performed By: #### 5 7021-8 ####[facility] LABIA [id number] [address] LABCLIA [id number] [place] [address] MCV (RBC) [Entitic vol] 103.9 fL High 80.0-100.0 [facility] Comment on above: Order Comment: Speci men Type: BLOOD SPECIMENOrdering Facility: [facility] Address: [address] [place] [address] Performed By: #### 5 7021-8 ####[facility] LABCLIA [id number] [address] LABCLIA [id number] [place] [address] Monocytes (Bld) [#/Vol] 0.38 10*3/uL Normal <0.87 [facility] Comment on above: Order Comment: Speci men Type: BLOOD SPECIMENOrdering Facility: [facility] Address: [address] [place] [address] Performed By: #### 5 7021-8 ####[facility] LABCLIA [id number] [address] LABCLIA [id number] [place] [address] Monocytes/100 WBC (Bld) 21.7 % Normal [facility] Comment on above: Order Comment: Speci men Type: BLOOD SPECIMENOrdering Facility: [facility] Address: [address] [place] [address] Performed By: #### 5 7021-8 ####[facility] LABCLIA [id number] [address] LABCLIA [id number] [place] [address] Neutrophils (Bld) [#/Vol] 0.61 10*3/uL Low 1.45-7.50 [facility] Comment on above: Order Comment: Speci men Type: BLOOD SPECIMENOrdering Facility: [facility] Address: [address] [place] [address] Performed By: #### 5 7021-8 ####[facility] LABCLIA [id number] [address] [address] [facility] LABCLIA [id number] [place] [address] Neutrophils/100 WBC (Bld) 35.5 % Normal [facility] Comment on above: Order Comment: Speci men Type: BLOOD SPECIMENOrdering Facility: [facility] Address: [address] [place] [address] Performed By: #### 5 7021-8 ####[facility] LABCLIA [id number] [address] LABCLIA [id number] [place] [address] Nucleated RBC (Bld) [#/Vol] 10*3/uL Normal <0.01 [facility] Comment on above: Order Comment: Speci men Type: BLOOD SPECIMENOrdering Facility: [facility] Address: [address] [place] [address] Result Comment: This result was previously suppressed from the chart. Performed By: #### 5 7021-8 ####[facility] LABCLIA [id number] [address] LABCLIA [id number] [place] [address] Nucleated RBC/100 WBC (Bld) [Ratio] 0.0 /100 WBC Normal [facility] Comment on above: Order Comment: Speci men Type: BLOOD SPECIMENOrdering Facility: [facility] Address: [address] [place], [place] [address] Performed By: #### 5 7021-8 ####[facility] LABCLIA [id number] [address] LABCLIA [id number] [place] [address] Ovalocytes LM Ql (Bld) Few Normal [facility] Comment on above: Order Comment: Speci men Type: BLOOD SPECIMENOrdering Facility: [facility] Address: [address] [place] [address] Performed By: #### 5 7021-8 ####[facility] LABCLIA [id number] [address] LABCLIA [id number] [place] [address] Platelet mean volume (Bld) [Entitic vol] Normal [facility] Comment on above: Order Comment: Speci men Type: BLOOD SPECIMENOrdering Facility: [facility] Address: [address] [place] [address] Result Comment: Unab le to Report. Performed By: #### 5 7021-8 ####[facility] LABCLIA [id number] [address] LABCLIA [id number] [place] [address] Platelets (Bld) [#/Vol] 69 10*3/uL Low 150-400 [facility] Comment on above: Order Comment: Speci men Type: BLOOD SPECIMENOrdering Facility: [facility] Address: [address] [place] [address] Result Comment: Resu lts checked and verified. No clot detected Performed By: #### 5 7021-8 ####[facility] LABCLIA [id number] [address] LABCLIA [id number] [place] [address] Platelets Estimate (Bld) [#/Vol] Decreased Normal [facility] Comment on above: Order Comment: Speci men Type: BLOOD SPECIMENOrdering Facility: [facility] Address: [address] [place] [address] Performed By: #### 5 7021-8 ####[facility] LABCLIA [id number] [address] [address] [facility] LABCLIA [id number] [place] [address] Polychromasia LM Ql (Bld) Slight Normal [facility] Comment on above: Order Comment: Speci men Type: BLOOD SPECIMENOrdering Facility: [facility] Address: [address] [place] [address] Performed By: #### 5 7021-8 ####[facility] LABCLIA [id number] [address] LABCLIA [id number] [place] [address] RBC (Bld) [#/Vol] 2.30 10*6/uL Low 4.20-6.00 [facility] Comment on above: Order Comment: Speci men Type: BLOOD SPECIMENOrdering Facility: [facility] Address: [address] [place] [address] Performed By: #### 5 7021-8 ####[facility] LABCLIA [id number] [address] LABCLIA [id number] [place] [address] RBC FRAGMENTS Few Abnormal None Seen [facility] Comment on above: Order Comment: Speci men Type: BLOOD SPECIMENOrdering Facility: [facility] Address: [address] [place] [address] Performed By: #### 5 7021-8 ####[facility] LABCLIA [id number] [address] LABCLIA [id number] [place] [address] RED CELL MORPH Reviewed: see result s of individual morphologies Normal [facility] Comment on above: Order Comment: Speci men Type: BLOOD SPECIMENOrdering Facility: [facility] Address: [address] [place], [place] [address] Performed By: #### 5 7021-8 ####[facility] LABCLIA [id number] [address] LABCLIA [id number] [place] [address] Variant lymphocytes/100 WBC (Bld) 0.0 % Normal [facility] Comment on above: Order Comment: Speci men Type: BLOOD SPECIMENOrdering Facility: [facility] Address: [address] [place], [place] [address] Performed By: #### 5 7021-8 ####[facility] LABCLIA [id number] [address] LABCLIA [id number] [place] [address] WBC (Bld) [#/Vol] 1.73 10*3/uL Low 3.70-11.00 [facility] Comment on above: Order Comment: Speci men Type: BLOOD SPECIMENOrdering Facility: [facility] Address: [address] [place], [place] [address] Result Comment: Resu lts checked and verified. No clot detected Performed By: #### 5 7021-8 ####[facility] LABCLIA [id number] [address] LABCLIA [id number] [place] [address] CNOVSPon 05-20-2022 CNOVSP Normal [facility] CNPNon 05-20-2022 CNPN Normal [facility] Comprehensive metabolic 2000 panelon 05-20-2022 Albumin [Mass/Vol] 4.0 g/dL Normal 3.9-4.9 [facility] Comment on above: Order Comment: Speci men Type: BLOOD SPECIMENOrdering Facility: [facility] Address: [address] Performed By: #### 2 532-0, 75605-4 ####[facility] LABCLIA [id number] [place] [address] ALP [Catalytic activity/Vol] 101 U/L Normal 38-113 [facility] Comment on above: Order Comment: Speci men Type: BLOOD SPECIMENOrdering Facility: [facility] Address: [address] [place] [address] Performed By: #### 2 532-0, ####[facility] LABCLIA [id number] [place] [address] ALT [Catalytic activity/Vol] 43 U/L Normal 10-54 [facility] Comment on above: Order Comment: Speci men Type: BLOOD SPECIMENOrdering Facility: [facility] Address: [address] [place] [address] Performed By: #### 2 532-0, 07294-2 ####[facility] LABCLIA [id number] [place] [address] Anion gap [Moles/Vol] 7 mmol/L Low 9-18 [facility] Comment on above: Order Comment: Speci men Type: BLOOD SPECIMENOrdering Facility: [facility] Address: [address] [place] [address] Performed By: #### 2 532-0, 36073-3 ####[facility] LABCLIA [id number] [place] [address] AST [Catalytic activity/Vol] 25 U/L Normal 14-40 [facility] Comment on above: Order Comment: Speci men Type: BLOOD SPECIMENOrdering Facility: [facility] Address: [address] [place] [address] Performed By: #### 2 532-0, 32080-8 ####[facility] LABCLIA [id number] [place] [address] Bilirubin [Mass/Vol] 0.7 mg/dL Normal 0.2-1.3 [facility] Comment on above: Order Comment: Speci men Type: BLOOD SPECIMENOrdering Facility: [facility] Address: [address] [place] [address] Performed By: #### 2 532-0, ####[facility] LABCLIA [id number] [place] [address] Calcium [Mass/Vol] 8.3 mg/dL Low 8.5-10.2 [facility] Comment on above: Order Comment: Speci men Type: BLOOD SPECIMENOrdering Facility: [facility] Address: [address] [place] [address] Performed By: #### 2 532-0, ####[facility] LABCLIA [id number] [place] [address] Chloride [Moles/Vol] 105 mmol/L Normal 97-105 [facility] Comment on above: Order Comment: Speci men Type: BLOOD SPECIMENOrdering Facility: [facility] Address: [address] [place] [address] Performed By: #### 2 532-0, ####[facility] LABCLIA [id number] [place] [address] CO2 [Moles/Vol] 33 mmol/L High 22-30 [facility] Comment on above: Order Comment: Speci men Type: BLOOD SPECIMENOrdering Facility: [facility] Address: [address] [place], [place] [address] Performed By: #### 2 532-0, ####[facility] LABCLIA [id number] [place] [address] Creatinine [Mass/Vol] 1.69 mg/dL High 0.73-1.22 [facility] Comment on above: Order Comment: Speci men Type: BLOOD SPECIMENOrdering Facility: [facility] Address: [address] [place], [place] [address] Performed By: #### 2 532-0, 66250-7 ####[facility] LABCLIA [id number] [place] [address] ESTIMATED GLOMERULAR FILTRATION RATE 40 mL/min/1.73m??? Low >=60 [facility] Comment on above: Order Comment: Davi avendaño Type: BLOOD SPECIMENOrdering Facility: [facility] Address: [address] [place] [address] Result Comment: Faye mated Glomerular Filtration Rate (eGFR) is calculated using the 2020 CKD-EPI creatinine equation. This equation utilizes serum creatinine, sex, and age as parameters. The creatinine assay has traceable calibration to isotope dilution-mass spectrometry. Refer to KDIGO guidelines for clinical interpretation. In patients with unstable renal function, e.g. those with acute kidney injury, the eGFR may not accurately reflect actual GFR. Performed By: #### 2 532-0, 18979-2 ####[facility] LABCLIA [id number] [place] [address] Glucose [Mass/Vol] 128 mg/dL High 74-99 [facility] Comment on above: Order Comment: Davi avendaño Type: BLOOD SPECIMENOrdering Facility: [facility] Address: [address] [place] [address] Result Comment: The [place] [employer] (ADA) provides guidance for cutoff values for fasting glucose and random glucose. The ADA defines fasting as no caloric intake for at least 8 hours. Fasting plasma glucose results between 100 to 125 mg/dL indicate increased risk for diabetes (prediabetes).Fasting plasma glucose results greater than or equal to 126 mg/dL meet the criteria for diagnosis of diabetes. In the absence of unequivocal hyperglycemia, results should be confirmed by repeat testing. In a patient with classic symptoms of hyperglycemia or hyperglycemic crisis, random plasma glucose results greater than or equal to 200 mg/dL meet the criteria for diagnosis of diabetes.Reference: Standards of Medical Care in Diabetes 2016, [employer] [place] [employer]. Diabetes Care. 2016.39(Suppl 1). Performed By: #### 2 532-0, 94457-4 ####[facility] LABCLIA [id number] [place] [address] Potassium [Moles/Vol] 4.2 mmol/L Normal 3.7-5.1 [facility] Comment on above: Order Comment: Speci men Type: BLOOD SPECIMENOrdering Facility: [facility] Address: [address] [place] [address] Performed By: #### 2 532-0, 74641-9 ####[facility] LABIA [id number] [place] [address] Protein [Mass/Vol] 6.2 g/dL Low 6.3-8.0 [facility] Comment on above: Order Comment: Speci men Type: BLOOD SPECIMENOrdering Facility: [facility] Address: [address] [place] [address] Performed By: #### 2 532-0, 23602-7 ####[facility] LABIA [id number] [place] [address] Sodium [Moles/Vol] 145 mmol/L High 136-144 [facility] Comment on above: Order Comment: Speci men Type: BLOOD SPECIMENOrdering Facility: [facility] Address: [address] [place] [address] Performed By: #### 2 532-0, 63519-0 ####[facility] LABIA [id number] [place] [address] Urea nitrogen [Mass/Vol] 28 mg/dL High 9-24 [facility] Comment on above: Order Comment: Speci men Type: BLOOD SPECIMENOrdering Facility: [facility] Address: [address] [place] [address] Performed By: #### 2 532-0, 86400-5 ####[facility] LABIA [id number] [place] [address] LDH SerPl-cCncon 05-20-2022 LDH [Catalytic activity/Vol] 223 U/L Normal 135-225 [facility] Comment on above: Order Comment: Speci men Type: BLOOD SPECIMENOrdering Facility: [facility] Address: [address] [place] [address] Performed By: #### 2 532-0, 75704-3 ####[facility] LABCLIA [id number] [place] [address] CNPNon 05-14-2022 CNPN Normal [facility] PRBC LEUKOREDUCEDon 05-14-20 ABO and Rh group Nom (Bld) Cross Match Result Compatible Unit Blood Type A Neg Unit Number [id number] Status Information Transfused Product ID Red Blood Cells Product Code [id number] Cross Match Result Compatible Unit Blood Type A Neg Unit Number [id number] Status Information Transfused Product ID Red Blood Cells Product Code [id number] Normal [facility] Comment on above: Performed By: #### T NS, PRBC #### [facility] [address] [place] [address] Dr. Benito To CBC W Auto Differential pane l (Bld)on 05-13-2022 Anisocytosis Ql (Bld) Present Normal [facility] Comment on above: Order Comment: Speci men Type: BLOOD SPECIMENOrdering Facility: [facility] Address: [address] [place] [address] Performed By: #### 5 7021-8 ####[facility] LABCLIA [id number] [address] LABCLIA [id number] [place] [address] [place] Basophils (Bld) [#/Vol] 0.02 10*3/uL Normal <0.11 [facility] Comment on above: Order Comment: Speci men Type: BLOOD SPECIMENOrdering Facility: [facility] Address: [address] [place] [address] Performed By: #### 5 7021-8 ####[facility] LABCLIA [id number] [address] [facility] LABCLIA [id number] [place] [address] [place] Basophils/100 WBC (Bld) 0.9 % Normal [facility] Comment on above: Order Comment: Speci men Type: BLOOD SPECIMENOrdering Facility: [facility] Address: [address] [place] [address] Performed By: #### 5 7021-8 ####[facility] LABCLIA [id number] [address] LABCLIA [id number] [place] [address] [place] Differential cell count method Nom (Bld) Manual Normal [facility] Comment on above: Order Comment: Speci men Type: BLOOD SPECIMENOrdering Facility: [facility] Address: [address] [place] [address] Performed By: #### 5 7021-8 ####[facility] LABCLIA [id number] [address] LABCLIA [id number] [place] [address] [place] Eosinophils (Bld) [#/Vol] 0.00 10*3/uL Normal <0.46 [facility] Comment on above: Order Comment: Speci men Type: BLOOD SPECIMENOrdering Facility: [facility] Address: [address] [place] [address] Performed By: #### 5 7021-8 ####[facility] LABCLIA [id number] [address] LABCLIA [id number] [place] [address] [place] Eosinophils/100 WBC (Bld) 0.0 % Normal [facility] Comment on above: Order Comment: Speci men Type: BLOOD SPECIMENOrdering Facility: [facility] Address: [address] [place], [place] [address] Performed By: #### 5 7021-8 ####[facility] LABCLIA [id number] [address] LABCLIA [id number] [place] [address] [place] Erythrocyte distribution width (RBC) [Ratio] 23.4 % High 11.5-15.0 [facility] Comment on above: Order Comment: Speci men Type: BLOOD SPECIMENOrdering Facility: [facility] Address: [address] [place] [address] Performed By: #### 5 7021-8 ####[facility] LABCLIA [id number] [address] LABCLIA [id number] [place] [address] [place] Hematocrit (Bld) [Volume fraction] 26.2 % Low 39.0-51.0 [facility] Comment on above: Order Comment: Speci men Type: BLOOD SPECIMENOrdering Facility: [facility] Address: [address] [place] [address] Performed By: #### 5 7021-8 ####[facility] LABCLIA [id number] [address] LABCLIA [id number] [place] [address] [place] Hemoglobin (Bld) [Mass/Vol] 8.3 g/dL Low 13.0-17.0 [facility] Comment on above: Order Comment: Speci men Type: BLOOD SPECIMENOrdering Facility: [facility] Address: [address] [place], [place] [address] Performed By: #### 5 7021-8 ####[facility] LABCLIA [id number] [address] LABCLIA [id number] [place] [address] [place] Lymphocytes (Bld) [#/Vol] 0.86 10*3/uL Low 1.00-4.00 [facility] Comment on above: Order Comment: Speci men Type: BLOOD SPECIMENOrdering Facility: [facility] Address: [address] [place] [address] Performed By: #### 5 7021-8 ####[facility] LABCLIA [id number] [address] LABCLIA [id number] [place] [address] [place] Lymphocytes/100 WBC (Bld) 44.1 % Normal [facility] Comment on above: Order Comment: Speci men Type: BLOOD SPECIMENOrdering Facility: [facility] Address: [address] [place] [address] Performed By: #### 5 7021-8 ####[facility] LABCLIA [id number] [address] LABCLIA [id number] [place] [address] [place] MCH (RBC) [Entitic mass] 32.9 pg Normal 26.0-34.0 [facility] Comment on above: Order Comment: Speci men Type: BLOOD SPECIMENOrdering Facility: [facility] Address: [address] [place], [place] [address] Performed By: #### 5 7021-8 ####[facility] LABCLIA [id number] [address] LABCLIA [id number] [place] [address] [place] MCHC (RBC) [Mass/Vol] 31.7 g/dL Normal 30.5-36.0 [facility] Comment on above: Order Comment: Speci men Type: BLOOD SPECIMENOrdering Facility: [facility] Address: [address] [place] [address] Performed By: #### 5 7021-8 ####[facility] LABCLIA [id number] [address] LABCLIA [id number] [place] [address] [place] MCV (RBC) [Entitic vol] 104.0 fL High 80.0-100.0 [facility] Comment on above: Order Comment: Speci men Type: BLOOD SPECIMENOrdering Facility: [facility] Address: [address] [place] [address] Performed By: #### 5 7021-8 ####[facility] LABCLIA [id number] [address] LABCLIA [id number] [place] [address] [place] Metamyelocytes/100 WBC (Bld) 0.4 % Normal [facility] Comment on above: Order Comment: Speci men Type: BLOOD SPECIMENOrdering Facility: [facility] Address: [address] [place], [place] [address] Performed By: #### 5 7021-8 ####[facility] LABCLIA [id number] [address] LABCLIA [id number] [place] [address] [place] Monocytes (Bld) [#/Vol] 0.43 10*3/uL Normal <0.87 [facility] Comment on above: Order Comment: Speci men Type: BLOOD SPECIMENOrdering Facility: [facility] Address: [address] [place], [place] [address] Performed By: #### 5 7021-8 ####[facility] LABCLIA [id number] [address] LABCLIA [id number] [place] [address] [place] Monocytes/100 WBC (Bld) 21.8 % Normal [facility] Comment on above: Order Comment: Speci men Type: BLOOD SPECIMENOrdering Facility: [facility] Address: [address] [place] [address] Performed By: #### 5 7021-8 ####[facility] LABCLIA [id number] [address] LABCLIA [id number] [place] [address] [place] MYELO% 0.9 % Normal [facility] Comment on above: Order Comment: Speci men Type: BLOOD SPECIMENOrdering Facility: [facility] Address: [address] [place] [address] Performed By: #### 5 7021-8 ####[facility] LABCLIA [id number] [address] LABCLIA [id number] [place] [address] [place] Neutrophils (Bld) [#/Vol] 0.63 10*3/uL Low 1.45-7.50 [facility] Comment on above: Order Comment: Speci men Type: BLOOD SPECIMENOrdering Facility: [facility] Address: [address] [place], [place] [address] Performed By: #### 5 7021-8 ####[facility] LABCLIA [id number] [address] LABCLIA [id number] [place] [address] [place] Neutrophils/100 WBC (Bld) 31.9 % Normal [facility] Comment on above: Order Comment: Speci men Type: BLOOD SPECIMENOrdering Facility: [facility] Address: [address] [place], [place] [address] Performed By: #### 5 7021-8 ####[facility] LABCLIA [id number] [address] LABCLIA [id number] [place] [address] [place] Nucleated RBC (Bld) [#/Vol] 10*3/uL Normal <0.01 [facility] Comment on above: Order Comment: Speci men Type: BLOOD SPECIMENOrdering Facility: [facility] Address: [address] [place], [place] [address] Result Comment: This result was previously suppressed from the chart. Performed By: #### 5 7021-8 ####[facility] LABCLIA [id number] [address] LABCLIA [id number] [place] [address] [place] Nucleated RBC/100 WBC (Bld) [Ratio] 0.0 /100 WBC Normal [facility] Comment on above: Order Comment: Speci men Type: BLOOD SPECIMENOrdering Facility: [facility] Address: [address] [place] [address] Performed By: #### 5 7021-8 ####[facility] LABCLIA [id number] [address] LABCLIA [id number] [place] [address] [place] Ovalocytes LM Ql (Bld) Few Normal [facility] Comment on above: Order Comment: Speci men Type: BLOOD SPECIMENOrdering Facility: [facility] Address: [address] [place], [place] [address] Performed By: #### 5 7021-8 ####[facility] LABCLIA [id number] [address] LABCLIA [id number] [place] [address] [place] Platelet mean volume (Bld) [Entitic vol] 13.0 fL High 9.0-12.7 [facility] Comment on above: Order Comment: Speci men Type: BLOOD SPECIMENOrdering Facility: [facility] Address: [address] [place] [address] Performed By: #### 5 7021-8 ####[facility] LABCLIA [id number] [address] LABCLIA [id number] [place] [address] [place] Platelets (Bld) [#/Vol] 75 10*3/uL Low 150-400 [facility] Comment on above: Order Comment: Speci men Type: BLOOD SPECIMENOrdering Facility: [facility] Address: [address] [place] [address] Result Comment: Resu lts checked and verified. No clot detected. Sample checked for clot Performed By: #### 5 7021-8 ####[facility] LABCLIA [id number] [address] LABCLIA [id number] [place] [address] [place] Platelets Estimate (Bld) [#/Vol] Decreased Normal [facility] Comment on above: Order Comment: Speci men Type: BLOOD SPECIMENOrdering Facility: [facility] Address: [address] [place], [place] [address] Performed By: #### 5 7021-8 ####[facility] LABCLIA [id number] [address] LABCLIA [id number] [place] [address] [place] Polychromasia LM Ql (Bld) Slight Normal [facility] Comment on above: Order Comment: Speci men Type: BLOOD SPECIMENOrdering Facility: [facility] Address: [address] [place] [address] Performed By: #### 5 7021-8 ####[facility] LABCLIA [id number] [address] LABCLIA [id number] [place] [address] [place] RBC (Bld) [#/Vol] 2.52 10*6/uL Low 4.20-6.00 [facility] Comment on above: Order Comment: Speci men Type: BLOOD SPECIMENOrdering Facility: [facility] Address: [address] [place], [place] [address] Performed By: #### 5 7021-8 ####[facility] LABCLIA [id number] [address] LABCLIA [id number] [place] [address] [place] RED CELL MORPH Reviewed: see result s of individual morphologies Normal [facility] Comment on above: Order Comment: Speci men Type: BLOOD SPECIMENOrdering Facility: [facility] Address: [address] [place], [place] [address] Performed By: #### 5 7021-8 ####[facility] LABCLIA [id number] [address] LABCLIA [id number] [place] [address] [place] Variant lymphocytes/100 WBC (Bld) 0.0 % Normal [facility] Comment on above: Order Comment: Speci men Type: BLOOD SPECIMENOrdering Facility: [facility] Address: [address] [place] [address] Performed By: #### 5 7021-8 ####[facility] LABCLIA [id number] [address] LABCLIA [id number] [place] [address] [place] WBC (Bld) [#/Vol] 1.96 10*3/uL Low 3.70-11.00 [facility] Comment on above: Order Comment: Speci men Type: BLOOD SPECIMENOrdering Facility: [facility] Address: [address] [place] [address] Performed By: #### 5 7021-8 ####[facility] LABCLIA [id number] [address] LABCLIA [id number] [place] [address] [place] WBC Left Shift Ql (Bld) Present Normal [facility] Comment on above: Order Comment: Speci men Type: BLOOD SPECIMENOrdering Facility: [facility] Address: [address] [place] [address] Performed By: #### 5 7021-8 ####[facility] LABCLIA [id number] [address] LABCLIA [id number] [place] [address] [place] Comprehensive metabolic 2000 panelon 05-13-2022 Albumin [Mass/Vol] 3.9 g/dL Normal 3.9-4.9 [facility] Comment on above: Order Comment: Speci men Type: BLOOD SPECIMENOrdering Facility: [facility] Address: [address] [place], [place] [address] Performed By: #### 2 532-0, 70888-1 ####[facility] LABCLIA [id number] [place] [id number] ALP [Catalytic activity/Vol] 93 U/L Normal 38-113 [facility] Comment on above: Order Comment: Speci men Type: BLOOD SPECIMENOrdering Facility: [facility] Address: [address] [place], [place] [address] Performed By: #### 2 532-0, 95543-8 ####[facility] LABCLIA [id number] [place] [address] ALT [Catalytic activity/Vol] 29 U/L Normal 10-54 [facility] Comment on above: Order Comment: Speci men Type: BLOOD SPECIMENOrdering Facility: [facility] Address: [address] [place] [address] Performed By: #### 2 532-0, 96474-0 ####[facility] LABCLIA [id number] [place] [address] Anion gap [Moles/Vol] 11 mmol/L Normal 9-18 [facility] Comment on above: Order Comment: Speci men Type: BLOOD SPECIMENOrdering Facility: [facility] Address: [address] [place] [address] Performed By: #### 2 532-0, 68917-0 ####[facility] LABCLIA [id number] [place] [address] AST [Catalytic activity/Vol] 14 U/L Normal 14-40 [facility] Comment on above: Order Comment: Speci men Type: BLOOD SPECIMENOrdering Facility: [facility] Address: [address] [place] [address] Performed By: #### 2 532-0, ####[facility] LABCLIA [id number] [place] [address] Bilirubin [Mass/Vol] 0.8 mg/dL Normal 0.2-1.3 [facility] Comment on above: Order Comment: Speci men Type: BLOOD SPECIMENOrdering Facility: [facility] Address: [address] [place] [address] Performed By: #### 2 532-0, 41970-6 ####[facility] LABCLIA [id number] [place] [address] Calcium [Mass/Vol] 8.8 mg/dL Normal 8.5-10.2 [facility] Comment on above: Order Comment: Speci men Type: BLOOD SPECIMENOrdering Facility: [facility] Address: [address] [place] [address] Performed By: #### 2 532-0, 19563-4 ####[facility] LABCLIA [id number] [place] [address] Chloride [Moles/Vol] 102 mmol/L Normal 97-105 [facility] Comment on above: Order Comment: Speci men Type: BLOOD SPECIMENOrdering Facility: [facility] Address: [address] [place] [address] Performed By: #### 2 532-0, 15699-7 ####[facility] LABCLIA [id number] [place] [address] CO2 [Moles/Vol] 28 mmol/L Normal 22-30 [facility] Comment on above: Order Comment: Speci men Type: BLOOD SPECIMENOrdering Facility: [facility] Address: [address] [place] [address] Performed By: #### 2 532-0, 62344-7 ####[facility] LABCLIA [id number] [place] [address] Creatinine [Mass/Vol] 1.63 mg/dL High 0.73-1.22 [facility] Comment on above: Order Comment: Speci men Type: BLOOD SPECIMENOrdering Facility: [facility] Address: [address] [place] [address] Performed By: #### 2 532-0, 85694-4 ####[facility] LABIA [id number] [place] [address] ESTIMATED GLOMERULAR FILTRATION RATE 42 mL/min/1.73m??? Low >=60 [facility] Comment on above: Order Comment: Speci men Type: BLOOD SPECIMENOrdering Facility: [facility] Address: [address] [place] [address] Result Comment: Faye mated Glomerular Filtration Rate (eGFR) is calculated using the 2020 CKD-EPI creatinine equation. This equation utilizes serum creatinine, sex, and age as parameters. The creatinine assay has traceable calibration to isotope dilution-mass spectrometry. Refer to KDIGO guidelines for clinical interpretation. In patients with unstable renal function, e.g. those with acute kidney injury, the eGFR may not accurately reflect actual GFR. Performed By: #### 2 532-0, 58635-6 ####[facility] LABCLIA [id number] [place] [address] Glucose [Mass/Vol] 191 mg/dL High 74-99 [facility] Comment on above: Order Comment: Davi avendaño Type: BLOOD SPECIMENOrdering Facility: [facility] Address: [address] [place], [place] [address] Result Comment: The [place] Diabetes [employer] (ADA) provides guidance for cutoff values for fasting glucose and random glucose. The ADA defines fasting as no caloric intake for at least 8 hours. Fasting plasma glucose results between 100 to 125 mg/dL indicate increased risk for diabetes (prediabetes).Fasting plasma glucose results greater than or equal to 126 mg/dL meet the criteria for diagnosis of diabetes. In the absence of unequivocal hyperglycemia, results should be confirmed by repeat testing. In a patient with classic symptoms of hyperglycemia or hyperglycemic crisis, random plasma glucose results greater than or equal to 200 mg/dL meet the criteria for diagnosis of diabetes.Reference: Standards of Medical Care in Diabetes 2016, [place] [employer]. Diabetes Care. 2016.39(Suppl 1). Performed By: #### 2 532-0, ####[facility] LABCLIA [id number] [place] [address] Potassium [Moles/Vol] 3.8 mmol/L Normal 3.7-5.1 [facility] Comment on above: Order Comment: Davi avendaño Type: BLOOD SPECIMENOrdering Facility: [facility] Address: [address] [place] [address] Performed By: #### 2 532-0, 66589-0 ####[facility] LABCLIA [id number] [place] [address] Protein [Mass/Vol] 6.0 g/dL Low 6.3-8.0 [facility] Comment on above: Order Comment: Speci men Type: BLOOD SPECIMENOrdering Facility: [facility] Address: [address] [place] [address] Performed By: #### 2 532-0, ####[facility] LABCLIA [id number] [place] [address] Sodium [Moles/Vol] 141 mmol/L Normal 136-144 [facility] Comment on above: Order Comment: Speci men Type: BLOOD SPECIMENOrdering Facility: [facility] Address: [address] [place] [address] Performed By: #### 2 532-0, ####[facility] LABIA [id number] [place] [address] Urea nitrogen [Mass/Vol] 22 mg/dL Normal 9-24 [facility] Comment on above: Order Comment: Speci men Type: BLOOD SPECIMENOrdering Facility: [facility] Address: [address] [place] [address] Performed By: #### 2 532-0, ####[facility] LABIA [id number] [place] [address] [facility]2022 LDH [Catalytic activity/Vol] 218 U/L Normal 135-225 [facility] Comment on above: Order Comment: Speci men Type: BLOOD SPECIMENOrdering Facility: [facility] Address: [address] [place] [address] Performed By: #### 2 532-0, 06346-9 ####[facility] LABIA [id number] [place] [address] PRBC LEUKOREDUCEDon 05-08-20 ABO and Rh group Nom (Bld) Cross Match Result Compatible Unit Blood Type A Pos Unit Number [id number] Status Information Transfused Product ID Red Blood Cells Product Code [id number] Cross Match Result Compatible Unit Blood Type A Pos Unit Number [id number] Status Information Transfused Product ID Red Blood Cells Product Code [id number] Normal [facility] Comment on above: Performed By: #### H H #### [facility] [address] [place] [address] Dr. Benito To HEMOGLOBIN AND HEMATOCRITon 05-07-2022 Hematocrit (Bld) [Volume fraction] 24.6 % Critically low 42.0-54.0 [facility] Comment on above: Performed By: #### T NS, PRBC #### [facility] [address] [place] [address] Dr. Benito To Hemoglobin (Bld) [Mass/Vol] 7.6 g/dL Critically low 14.0-18.0 [facility] Comment on above: Performed By: #### T NS, PRBC #### [facility] [address] [place] [address] Dr. Benito To TYPE AND SCREENon 05-07-2022 TYPE AND SCREEN Negative Normal [facility] Comment on above: Performed By: #### T NS, PRBC #### [facility] [address] [place] [address] Dr. Benito To CBC W Auto Differential pane l (Bld)on 05-06-2022 Anisocytosis Ql (Bld) Present Normal [facility] Comment on above: Order Comment: Speci men Type: BLOOD SPECIMENOrdering Facility: [facility] Address: [address] [place] [address] Performed By: #### 5 7021-8 ####[facility] LABCLIA [id number] [place], [place] [address] LABCLIA [id number] [place] [address] [place] Basophils/100 WBC (Bld) 5.0 % Normal [facility] Comment on above: Order Comment: Speci men Type: BLOOD SPECIMENOrdering Facility: [facility] Address: [address] [place] [address] Performed By: #### 5 7021-8 ####[facility] LABCLIA [id number] [address] LABCLIA [id number] [place] [address] [place] Eosinophils (Bld) [#/Vol] 0.02 10*3/uL Normal <0.46 [facility] Comment on above: Order Comment: Speci men Type: BLOOD SPECIMENOrdering Facility: [facility] Address: [address] [place] [address] Performed By: #### 5 7021-8 ####[facility] LABCLIA [id number] [address] LABCLIA [id number] [place] [address] [place] Eosinophils/100 WBC (Bld) 1.0 % Normal [facility] Comment on above: Order Comment: Speci men Type: BLOOD SPECIMENOrdering Facility: [facility] Address: [address] [place] [address] Performed By: #### 5 7021-8 ####[facility] LABCLIA [id number] [address] LABCLIA [id number] [place] [address] [place] Erythrocyte distribution width (RBC) [Ratio] 24.7 % High 11.5-15.0 [facility] Comment on above: Order Comment: Speci men Type: BLOOD SPECIMENOrdering Facility: [facility] Address: [address] [place], [place] [address] Performed By: #### 5 7021-8 ####[facility] LABCLIA [id number] [address] LABCLIA [id number] [place] [address] [place] Giant platelets LM Ql (Bld) Occasional Normal [facility] Comment on above: Order Comment: Speci men Type: BLOOD SPECIMENOrdering Facility: [facility] Address: [address] [place] [address] Performed By: #### 5 7021-8 ####[facility] LABCLIA [id number] [address] LABCLIA [id number] [place] [address] [place] Hematocrit (Bld) [Volume fraction] 23.3 % Low 39.0-51.0 [facility] Comment on above: Order Comment: Speci men Type: BLOOD SPECIMENOrdering Facility: [facility] Address: [address] [place] [address] Performed By: #### 5 7021-8 ####[facility] LABCLIA [id number] [address] LABCLIA [id number] [place] [address] [place] Hemoglobin (Bld) [Mass/Vol] 7.4 g/dL Low 13.0-17.0 [facility] Comment on above: Order Comment: Speci men Type: BLOOD SPECIMENOrdering Facility: [facility] Address: [address] [place], [place] [address] Performed By: #### 5 7021-8 ####[facility] LABCLIA [id number] [address] LABCLIA [id number] [place] [address] [place] Lymphocytes (Bld) [#/Vol] 1.05 10*3/uL Normal 1.00-4.00 [facility] Comment on above: Order Comment: Speci men Type: BLOOD SPECIMENOrdering Facility: [facility] Address: [address] [place], [place] [address] Performed By: #### 5 7021-8 ####[facility] LABCLIA [id number] [address] LABCLIA [id number] [place] [address] [place] Lymphocytes/100 WBC (Bld) 53.0 % Normal [facility] Comment on above: Order Comment: Speci men Type: BLOOD SPECIMENOrdering Facility: [facility] Address: [address] [place] [address] Performed By: #### 5 7021-8 ####[facility] LABCLIA [id number] [address] LABCLIA [id number] [place] [address] [place] MCH (RBC) [Entitic mass] 33.2 pg Normal 26.0-34.0 [facility] Comment on above: Order Comment: Speci men Type: BLOOD SPECIMENOrdering Facility: [facility] Address: [address] [place] [address] Performed By: #### 5 7021-8 ####[facility] LABCLIA [id number] [address] LABCLIA [id number] [place] [address] [place] MCHC (RBC) [Mass/Vol] 31.8 g/dL Normal 30.5-36.0 [facility] Comment on above: Order Comment: Speci men Type: BLOOD SPECIMENOrdering Facility: [facility] Address: [address] [place] [address] Performed By: #### 5 7021-8 ####[facility] LABCLIA [id number] [address] LABCLIA [id number] [place] [address] [place] MCV (RBC) [Entitic vol] 104.5 fL High 80.0-100.0 [facility] Comment on above: Order Comment: Speci men Type: BLOOD SPECIMENOrdering Facility: [facility] Address: [address] [place] [address] Performed By: #### 5 7021-8 ####[facility] LABCLIA [id number] [address] LABCLIA [id number] [place] [address] [place] MYELO% 1.0 % Normal [facility] Comment on above: Order Comment: Speci men Type: BLOOD SPECIMENOrdering Facility: [facility] Address: [address] [place] [address] Performed By: #### 5 7021-8 ####[facility] LABCLIA [id number] [address] LABCLIA [id number] [place] [address] [place] Neutrophils (Bld) [#/Vol] 0.40 10*3/uL Low 1.45-7.50 [facility] Comment on above: Order Comment: Speci men Type: BLOOD SPECIMENOrdering Facility: [facility] Address: [address] [place], [place] [address] Performed By: #### 5 7021-8 ####[facility] LABCLIA [id number] [address] LABCLIA [id number] [place] [address] [place] Neutrophils/100 WBC (Bld) 20.0 % Normal [facility] Comment on above: Order Comment: Speci men Type: BLOOD SPECIMENOrdering Facility: [facility] Address: [address] [place] [address] Performed By: #### 5 7021-8 ####[facility] LABCLIA [id number] [place] [id number] LABCLIA [id number] [place] [address] [place] Nucleated RBC/100 WBC (Bld) [Ratio] 0.0 /100 WBC Normal [facility] Comment on above: Order Comment: Speci men Type: BLOOD SPECIMENOrdering Facility: [facility] Address: [address] [place] [address] Performed By: #### 5 7021-8 ####[facility] LABCLIA [id number] [address] LABCLIA [id number] [place] [address] [place] Ovalocytes LM Ql (Bld) Few Normal [facility] Comment on above: Order Comment: Speci men Type: BLOOD SPECIMENOrdering Facility: [facility] Address: [address] [place] [address] Performed By: #### 5 7021-8 ####[facility] LABCLIA [id number] [address] LABCLIA [id number] [place] [address] [place] PLATELET ESTIMATE Decreased Normal [facility] Comment on above: Order Comment: Speci men Type: BLOOD SPECIMENOrdering Facility: [facility] Address: [address] [place] [address] Performed By: #### 5 7021-8 ####[facility] LABCLIA [id number] [address] LABCLIA [id number] [place] [address] [place] Platelet mean volume (Bld) [Entitic vol] Normal [facility] Comment on above: Order Comment: Speci men Type: BLOOD SPECIMENOrdering Facility: [facility] Address: [address] [place] [address] Result Comment: Unab le to Report. Performed By: #### 5 7021-8 ####[facility] LABCLIA [id number] [address] LABCLIA [id number] [place] [address] [place] Platelets (Bld) [#/Vol] 65 10*3/uL Low 150-400 [facility] Comment on above: Order Comment: Speci men Type: BLOOD SPECIMENOrdering Facility: [facility] Address: [address] [place] [address] Result Comment: Samp le checked for clot Performed By: #### 5 7021-8 ####[facility] LABCLIA [id number] [address] LABCLIA [id number] [place] [address] [place] RBC (Bld) [#/Vol] 2.23 10*6/uL Low 4.20-6.00 [facility] Comment on above: Order Comment: Speci men Type: BLOOD SPECIMENOrdering Facility: [facility] Address: [address] [place] [address] Performed By: #### 5 7021-8 ####[facility] LABCLIA [id number] [address] LABCLIA [id number] [place] [address] [place] RBC FRAGMENTS Few Abnormal None Seen [facility] Comment on above: Order Comment: Speci men Type: BLOOD SPECIMENOrdering Facility: [facility] Address: [address] [place], [place] [address] Performed By: #### 5 7021-8 ####[facility] LABCLIA [id number] [place] [id number] LABCLIA [id number] [place] [address] [place] RED CELL MORPH Reviewed: see result s of individual morphologies Normal [facility] Comment on above: Order Comment: Speci men Type: BLOOD SPECIMENOrdering Facility: [facility] Address: [address] [place] [address] Performed By: #### 5 7021-8 ####[facility] LABCLIA [id number] [address] LABCLIA [id number] [place] [address] [place] Variant lymphocytes/100 WBC (Bld) 0.0 % Normal [facility] Comment on above: Order Comment: Speci men Type: BLOOD SPECIMENOrdering Facility: [facility] Address: [address] [place] [address] Performed By: #### 5 7021-8 ####[facility] LABCLIA [id number] [address] LABCLIA [id number] [place] [address] [place] WAM - ABS BASO 0.10 k/uL Normal <0.11 [facility] Comment on above: Order Comment: Speci men Type: BLOOD SPECIMENOrdering Facility: [facility] Address: [address] [place] [address] Performed By: #### 5 7021-8 ####[facility] LABCLIA [id number] [address] LABCLIA [id number] [place] [address] [place] WAM - ABS MONO 0.40 k/uL Normal <0.87 [facility] Comment on above: Order Comment: Speci men Type: BLOOD SPECIMENOrdering Facility: [facility] Address: [address] [place] [address] Performed By: #### 5 7021-8 ####[facility] LABCLIA [id number] [place] [id number] LABCLIA [id number] [place] [address] [place] WAM - MONO% 20.0 % Normal [facility] Comment on above: Order Comment: Speci men Type: BLOOD SPECIMENOrdering Facility: [facility] Address: [address] [place], [place] [address] Performed By: #### 5 7021-8 ####[facility] LABCLIA [id number] [address] LABCLIA [id number] [place] [address] [place] WAM ABSOLUTE NRBC <0.01 Normal <0.01 [facility] Comment on above: Order Comment: Speci men Type: BLOOD SPECIMENOrdering Facility: [facility] Address: [address] [place], [place] [address] Result Comment: This result was previously suppressed from the chart. Performed By: #### 5 7021-8 ####[facility] LABCLIA [id number] [place] [id number] LABCLIA [id number] [place] [address] [place] WBC (Bld) [#/Vol] 1.98 10*3/uL Low 3.70-11.00 [facility] Comment on above: Order Comment: Speci men Type: BLOOD SPECIMENOrdering Facility: [facility] Address: [address] [place], [place] [address] Performed By: #### 5 7021-8 ####[facility] LABCLIA [id number] [place] [id number] LABCLIA [id number] [place] [id number] [place] WBC Left Shift Ql (Bld) Present Normal [facility] Comment on above: Order Comment: Speci men Type: BLOOD SPECIMENOrdering Facility: [facility] Address: [address] [place] [address] Performed By: #### 5 7021-8 ####[facility] LABCLIA [id number] [place], [place] [address]ZRSFTTBGPL[facility] LABCLIA [id number] [place] [id number] [place] CNOVSPon 05-06-2022 CNOVSP Normal [facility] CNPNon 05-06-2022 CNPN Normal [facility] Comprehensive metabolic 2000 panelon 05-06-2022 Albumin [Mass/Vol] 3.9 g/dL Normal 3.9-4.9 [facility] Comment on above: Order Comment: Speci men Type: BLOOD SPECIMENOrdering Facility: [facility] Address: [address] [place] [address] Performed By: #### 2 4323-8, 2531-0 ####[facility] LABIA [id number] [place] [address] ALP [Catalytic activity/Vol] 87 U/L Normal 38-113 [facility] Comment on above: Order Comment: Speci men Type: BLOOD SPECIMENOrdering Facility: [facility] Address: [address] [place] [address] Performed By: #### 2 4323-8, 2532-0 ####[facility] LABIA [id number] [place] [address] ALT [Catalytic activity/Vol] 25 U/L Normal 10-54 [facility] Comment on above: Order Comment: Speci men Type: BLOOD SPECIMENOrdering Facility: [facility] Address: [address] [place] [address] Performed By: #### 2 4328, 2532-0 ####[facility] LABCLIA [id number] [place] [address] Anion gap [Moles/Vol] 12 mmol/L Normal 9-18 [facility] Comment on above: Order Comment: Speci men Type: BLOOD SPECIMENOrdering Facility: [facility] Address: [address] [place], [place] [address] Performed By: #### 2 4328, 2531-0 ####[facility] LABCLIA [id number] [place] [address] AST [Catalytic activity/Vol] 13 U/L Low 14-40 [facility] Comment on above: Order Comment: Speci men Type: BLOOD SPECIMENOrdering Facility: [facility] Address: [address] [place] [address] Performed By: #### 2 4328, ####[facility] LABCLIA [id number] [place] [address] Bilirubin [Mass/Vol] 0.7 mg/dL Normal 0.2-1.3 [facility] Comment on above: Order Comment: Speci men Type: BLOOD SPECIMENOrdering Facility: [facility] Address: [address] [place] [address] Performed By: #### 2 4328, 0 ####[facility] LABCLIA [id number] [place] [address] Calcium [Mass/Vol] 8.5 mg/dL Normal 8.5-10.2 [facility] Comment on above: Order Comment: Speci men Type: BLOOD SPECIMENOrdering Facility: [facility] Address: [address] [place], [place] [address] Performed By: #### 2 4328, 2531-0 ####[facility] LABCLIA [id number] [place] [address] Chloride [Moles/Vol] 102 mmol/L Normal 97-105 [facility] Comment on above: Order Comment: Speci men Type: BLOOD SPECIMENOrdering Facility: [facility] Address: [address] [place], [place] [address] Performed By: #### 2 432-8, 0 ####[facility] LABCLIA [id number] [place] [address] CO2 [Moles/Vol] 27 mmol/L Normal 22-30 [facility] Comment on above: Order Comment: Speci men Type: BLOOD SPECIMENOrdering Facility: [facility] Address: [address] [place] [address] Performed By: #### 2 4328, ####[facility] LABCLIA [id number] [place] [address] Creatinine [Mass/Vol] 1.97 mg/dL High 0.73-1.22 [facility] Comment on above: Order Comment: Speci men Type: BLOOD SPECIMENOrdering Facility: [facility] Address: [address] [place] [address] Performed By: #### 2 4328, ####[facility] LABCLIA [id number] [place] [address] ESTIMATED GLOMERULAR FILTRATION RATE 33 mL/min/1.73m??? Low >=60 [facility] Comment on above: Order Comment: Speci men Type: BLOOD SPECIMENOrdering Facility: [facility] Address: [address] [place] [address] Result Comment: Faye mated Glomerular Filtration Rate (eGFR) is calculated using the 2020 CKD-EPI creatinine equation. This equation utilizes serum creatinine, sex, and age as parameters. The creatinine assay has traceable calibration to isotope dilution-mass spectrometry. Refer to KDIGO guidelines for clinical interpretation. In patients with unstable renal function, e.g. those with acute kidney injury, the eGFR may not accurately reflect actual GFR. Performed By: #### 2 43238, 0 ####[facility] LABCLIA [id number] [place] [address] Glucose [Mass/Vol] 132 mg/dL High 74-99 [facility] Comment on above: Order Comment: Speci men Type: BLOOD SPECIMENOrdering Facility: [facility] Address: [address] [place], [place] [address] Result Comment: The [place] [employer] (ADA) provides guidance for cutoff values for fasting glucose and random glucose. The ADA defines fasting as no caloric intake for at least 8 hours. Fasting plasma glucose results between 100 to 125 mg/dL indicate increased risk for diabetes (prediabetes).Fasting plasma glucose results greater than or equal to 126 mg/dL meet the criteria for diagnosis of diabetes. In the absence of unequivocal hyperglycemia, results should be confirmed by repeat testing. In a patient with classic symptoms of hyperglycemia or hyperglycemic crisis, random plasma glucose results greater than or equal to 200 mg/dL meet the criteria for diagnosis of diabetes.Reference: Standards of Medical Care in Diabetes 2016, [employer] [place] [employer]. Diabetes Care. 2016.39(Suppl 1). Performed By: #### 2 4323-8, 2531-0 ####[facility] LABCLIA [id number] [place] [address] Potassium [Moles/Vol] 3.9 mmol/L Normal 3.7-5.1 [facility] Comment on above: Order Comment: Speci men Type: BLOOD SPECIMENOrdering Facility: [facility] Address: [address] [place], [place] [address] Performed By: #### 2 43238, 2531-0 ####[facility] LABCLIA [id number] [place] [address] Protein [Mass/Vol] 6.1 g/dL Low 6.3-8.0 [facility] Comment on above: Order Comment: Speci men Type: BLOOD SPECIMENOrdering Facility: [facility] Address: [address] [place], [place] [address] Performed By: #### 2 4323-8, 2531-0 ####[facility] LABCLIA [id number] [place] [address] Sodium [Moles/Vol] 141 mmol/L Normal 136-144 [facility] Comment on above: Order Comment: Speci men Type: BLOOD SPECIMENOrdering Facility: [facility] Address: [address] [place] [address] Performed By: #### 2 4323-8, 2532-0 ####[facility] LABCLIA [id number] [place] [address] Urea nitrogen [Mass/Vol] 27 mg/dL High 9-24 [facility] Comment on above: Order Comment: Speci men Type: BLOOD SPECIMENOrdering Facility: [facility] Address: [address] [place] [address] Performed By: #### 2 4323-8, 2532-0 ####[facility] LABIA [id number] [place] [address] LDH SerPl-cCncon 05-06-2022 LDH [Catalytic activity/Vol] 222 U/L Normal 135-225 [facility] Comment on above: Order Comment: Speci men Type: BLOOD SPECIMENOrdering Facility: [facility] Address: [address] [place] [address] Performed By: #### 2 4323-8, 2532-0 ####[facility] LABIA [id number] [place] [address] CBC W Auto Differential pane l (Bld)on 04-29-2022 Anisocytosis Ql (Bld) Present Normal [facility] Comment on above: Order Comment: Speci men Type: BLOOD SPECIMENOrdering Facility: [facility] Address: [address] [place] [address] Performed By: #### 5 7021-8 ####[facility] LABCLIA [id number] [place], [place] [address] LABCLIA [id number] [address] [place] Basophils/100 WBC (Bld) 0.0 % Normal [facility] Comment on above: Order Comment: Speci men Type: BLOOD SPECIMENOrdering Facility: [facility] Address: [address] [place] [address] Performed By: #### 5 7021-8 ####[facility] LABCLIA [id number] [address] LABCLIA [id number] [place] [address] [place] Dacrocytes LM Ql (Bld) Few Normal [facility] Comment on above: Order Comment: Speci men Type: BLOOD SPECIMENOrdering Facility: [facility] Address: [address] [place] [address] Performed By: #### 5 7021-8 ####[facility] LABCLIA [id number] [address] LABCLIA [id number] [place] [address] [place] Differential cell count method Nom (Bld) Manual Normal [facility] Comment on above: Order Comment: Speci men Type: BLOOD SPECIMENOrdering Facility: [facility] Address: [address] [place], [place] [address] Performed By: #### 5 7021-8 ####[facility] LABCLIA [id number] [address] LABCLIA [id number] [place] [address] [place] Eosinophils (Bld) [#/Vol] 0.02 10*3/uL Normal <0.46 [facility] Comment on above: Order Comment: Speci men Type: BLOOD SPECIMENOrdering Facility: [facility] Address: [address] [place], [place] [phone] Performed By: #### 5 7021-8 ####[facility] LABCLIA [id number] [address] LABCLIA [id number] [place] [address] [place] Eosinophils/100 WBC (Bld) 1.0 % Normal [facility] Comment on above: Order Comment: Speci men Type: BLOOD SPECIMENOrdering Facility: [facility] Address: [address] [place] [address] Performed By: #### 5 7021-8 ####[facility] LABCLIA [id number] [address] LABCLIA [id number] [place] [address] [place] Erythrocyte distribution width (RBC) [Ratio] 24.4 % High 11.5-15.0 [facility] Comment on above: Order Comment: Speci men Type: BLOOD SPECIMENOrdering Facility: [facility] Address: [address] [place] [address] Performed By: #### 5 7021-8 ####[facility] LABCLIA [id number] [address] LABCLIA [id number] [place] [address] [place] Hematocrit (Bld) [Volume fraction] 26.7 % Low 39.0-51.0 [facility] Comment on above: Order Comment: Speci men Type: BLOOD SPECIMENOrdering Facility: [facility] Address: [address] [place], [place] [address] Performed By: #### 5 7021-8 ####[facility] LABCLIA [id number] [address] LABCLIA [id number] [place] [address] [place] Hemoglobin (Bld) [Mass/Vol] 8.4 g/dL Low 13.0-17.0 [facility] Comment on above: Order Comment: Speci men Type: BLOOD SPECIMENOrdering Facility: [facility] Address: [address] [place] [address] Performed By: #### 5 7021-8 ####[facility] LABCLIA [id number] [address] LABCLIA [id number] [place] [address] [place] Lymphocytes (Bld) [#/Vol] 0.79 10*3/uL Low 1.00-4.00 [facility] Comment on above: Order Comment: Speci men Type: BLOOD SPECIMENOrdering Facility: [facility] Address: [address] [place] [address] Performed By: #### 5 7021-8 ####[facility] LABCLIA [id number] [address] LABCLIA [id number] [place] [address] [place] Lymphocytes/100 WBC (Bld) 43.0 % Normal [facility] Comment on above: Order Comment: Speci men Type: BLOOD SPECIMENOrdering Facility: [facility] Address: [address] [place] [address] Performed By: #### 5 7021-8 ####[facility] LABCLIA [id number] [address] LABCLIA [id number] [place] [address] [place] MCH (RBC) [Entitic mass] 32.7 pg Normal 26.0-34.0 [facility] Comment on above: Order Comment: Speci men Type: BLOOD SPECIMENOrdering Facility: [facility] Address: [address] [place], [place] [address] Performed By: #### 5 7021-8 ####[facility] LABCLIA [id number] [address] LABCLIA [id number] [place] [address] [place] MCHC (RBC) [Mass/Vol] 31.5 g/dL Normal 30.5-36.0 [facility] Comment on above: Order Comment: Speci men Type: BLOOD SPECIMENOrdering Facility: [facility] Address: [address] [place] [address] Performed By: #### 5 7021-8 ####[facility] LABCLIA [id number] [address] LABCLIA [id number] [place] [address] [place] MCV (RBC) [Entitic vol] 103.9 fL High 80.0-100.0 [facility] Comment on above: Order Comment: Speci men Type: BLOOD SPECIMENOrdering Facility: [facility] Address: [address] [place] [address] Performed By: #### 5 7021-8 ####[facility] LABCLIA [id number] [address] LABCLIA [id number] [place] [address] [place] MYELO% 2.0 % Normal [facility] Comment on above: Order Comment: Speci men Type: BLOOD SPECIMENOrdering Facility: [facility] Address: [address] [place], [place] [address] Performed By: #### 5 7021-8 ####[facility] LABCLIA [id number] [address] LABCLIA [id number] [place] [address] [place] Neutrophils (Bld) [#/Vol] 0.66 10*3/uL Low 1.45-7.50 [facility] Comment on above: Order Comment: Speci men Type: BLOOD SPECIMENOrdering Facility: [facility] Address: [address] [place] [address] Performed By: #### 5 7021-8 ####[facility] LABCLIA [id number] [address] LABCLIA [id number] [place] [address] [place] Neutrophils/100 WBC (Bld) 36.0 % Normal [facility] Comment on above: Order Comment: Speci men Type: BLOOD SPECIMENOrdering Facility: [facility] Address: [address] [place] [address] Performed By: #### 5 7021-8 ####[facility] LABCLIA [id number] [address] LABCLIA [id number] [place] [address] [place] Nucleated RBC/100 WBC (Bld) [Ratio] 0.0 /100 WBC Normal [facility] Comment on above: Order Comment: Speci men Type: BLOOD SPECIMENOrdering Facility: [facility] Address: [address] [place] [address] Performed By: #### 5 7021-8 ####[facility] LABCLIA [id number] [address] LABCLIA [id number] [place] [address] [place] Ovalocytes LM Ql (Bld) Few Normal [facility] Comment on above: Order Comment: Speci men Type: BLOOD SPECIMENOrdering Facility: [facility] Address: [address] [place] [address] Performed By: #### 5 7021-8 ####[facility] LABCLIA [id number] [address] LABCLIA [id number] [place] [address] [place] PLATELET ESTIMATE Decreased Normal [facility] Comment on above: Order Comment: Speci men Type: BLOOD SPECIMENOrdering Facility: [facility] Address: [address] [place] [address] Performed By: #### 5 7021-8 ####[facility] LABCLIA [id number] [address] LABCLIA [id number] [place] [address] [place] Platelet mean volume (Bld) [Entitic vol] 14.1 fL High 9.0-12.7 [facility] Comment on above: Order Comment: Speci men Type: BLOOD SPECIMENOrdering Facility: [facility] Address: [address] [place] [address] Performed By: #### 5 7021-8 ####[facility] LABCLIA [id number] [address] LABCLIA [id number] [place] [address] [place] Platelets (Bld) [#/Vol] 75 10*3/uL Low 150-400 [facility] Comment on above: Order Comment: Speci men Type: BLOOD SPECIMENOrdering Facility: [facility] Address: [address] [place], [place] [address] Result Comment: Resu lts checked and verified. No clot detected. Sample checked for clot Performed By: #### 5 7021-8 ####[facility] LABCLIA [id number] [address] LABCLIA [id number] [place] [address] [place] RBC (Bld) [#/Vol] 2.57 10*6/uL Low 4.20-6.00 [facility] Comment on above: Order Comment: Speci men Type: BLOOD SPECIMENOrdering Facility: [facility] Address: [address] [place] [address] Performed By: #### 5 7021-8 ####[facility] LABCLIA [id number] [address] LABCLIA [id number] [place] [address] [place] RBC FRAGMENTS Few Abnormal None Seen [facility] Comment on above: Order Comment: Speci men Type: BLOOD SPECIMENOrdering Facility: [facility] Address: [address] [place] [address] Performed By: #### 5 7021-8 ####[facility] LABCLIA [id number] [address] LABCLIA [id number] [place] [address] [place] RED CELL MORPH Reviewed: see result s of individual morphologies Normal [facility] Comment on above: Order Comment: Speci men Type: BLOOD SPECIMENOrdering Facility: [facility] Address: [address] [place] [address] Performed By: #### 5 7021-8 ####[facility] LABCLIA [id number] [address] LABCLIA [id number] [place] [address] [place] WAM - ABS BASO 0.00 k/uL Normal <0.11 [facility] Comment on above: Order Comment: Speci men Type: BLOOD SPECIMENOrdering Facility: [facility] Address: [address] [place] [address] Performed By: #### 5 7021-8 ####[facility] LABCLIA [id number] [address] [facility] LABCLIA [id number] [place] [address] [place] WAM - ABS MONO 0.33 k/uL Normal <0.87 [facility] Comment on above: Order Comment: Speci men Type: BLOOD SPECIMENOrdering Facility: [facility] Address: [address] [place] [address] Performed By: #### 5 7021-8 ####[facility] LABCLIA [id number] [address] LABCLIA [id number] [place] [address] [place] WAM - MONO% 18.0 % Normal [facility] Comment on above: Order Comment: Speci men Type: BLOOD SPECIMENOrdering Facility: [facility] Address: [address] [place] [address] Performed By: #### 5 7021-8 ####[facility] LABCLIA [id number] [address] LABCLIA [id number] [place] [address] [place] WAM ABSOLUTE NRBC <0.01 Normal <0.01 [facility] Comment on above: Order Comment: Speci men Type: BLOOD SPECIMENOrdering Facility: [facility] Address: [address] [place], [place] [address] Performed By: #### 5 7021-8 ####[facility] LABCLIA [id number] [address] LABCLIA [id number] [place] [address] [place] WBC (Bld) [#/Vol] 1.84 10*3/uL Low 3.70-11.00 [facility] Comment on above: Order Comment: Speci men Type: BLOOD SPECIMENOrdering Facility: [facility] Address: [address] [place], [place] [address] Performed By: #### 5 7021-8 ####[facility] LABCLIA [id number] [place], [place] [address] LABCLIA [id number] [place] [address] [place] WBC Left Shift Ql (Bld) Present Normal [facility] Comment on above: Order Comment: Speci men Type: BLOOD SPECIMENOrdering Facility: [facility] Address: [address] [place], [place] [address] Performed By: #### 5 7021-8 ####[facility] LABCLIA [id number] [address] LABCLIA [id number] [place] [address] [place] CNOVSPon 04-29-2022 CNOVSP Normal [facility] CNPNon 04-29-2022 CNPN Normal [facility] Comprehensive metabolic 2000 panelon 04-29-2022 Albumin [Mass/Vol] 4.1 g/dL Normal 3.9-4.9 [facility] Comment on above: Order Comment: Speci men Type: BLOOD SPECIMENOrdering Facility: [facility] Address: [address] [place], [place] [address] Performed By: #### 2 4323-8 ####[facility] LABCLIA [id number] [place] [address] ALP [Catalytic activity/Vol] 86 U/L Normal 38-113 [facility] Comment on above: Order Comment: Speci men Type: BLOOD SPECIMENOrdering Facility: [facility] Address: [address] [place], [place] [address] Performed By: #### 2 4323-8 ####[facility] LABCLIA [id number] [place] [address] ALT [Catalytic activity/Vol] 31 U/L Normal 10-54 [facility] Comment on above: Order Comment: Speci men Type: BLOOD SPECIMENOrdering Facility: [facility] Address: [address] [place] [address] Performed By: #### 2 4323-8 ####[facility] LABCLIA [id number] [place] [address] Anion gap [Moles/Vol] 10 mmol/L Normal 9-18 [facility] Comment on above: Order Comment: Speci men Type: BLOOD SPECIMENOrdering Facility: [facility] Address: [address] [place] [address] Performed By: #### 2 4323-8 ####[facility] LABCLIA [id number] [place] [address] AST [Catalytic activity/Vol] 15 U/L Normal 14-40 [facility] Comment on above: Order Comment: Speci men Type: BLOOD SPECIMENOrdering Facility: [facility] Address: [address] [place] [address] Performed By: #### 2 4323-8 ####[facility] LABCLIA [id number] [place] [address] Bilirubin [Mass/Vol] 0.9 mg/dL Normal 0.2-1.3 [facility] Comment on above: Order Comment: Speci men Type: BLOOD SPECIMENOrdering Facility: [facility] Address: [address] [place], [place] [address] Performed By: #### 2 4323-8 ####[facility] LABCLIA [id number] [place] [address] Calcium [Mass/Vol] 8.9 mg/dL Normal 8.5-10.2 [facility] Comment on above: Order Comment: Speci men Type: BLOOD SPECIMENOrdering Facility: [facility] Address: [address] [place] [address] Performed By: #### 2 4323-8 ####[facility] LABCLIA [id number] [place] [address] Chloride [Moles/Vol] 104 mmol/L Normal 97-105 [facility] Comment on above: Order Comment: Speci men Type: BLOOD SPECIMENOrdering Facility: [facility] Address: [address] [place] [address] Performed By: #### 2 4323-8 ####[facility] LABCLIA [id number] [place] [address] CO2 [Moles/Vol] 29 mmol/L Normal 22-30 [facility] Comment on above: Order Comment: Speci men Type: BLOOD SPECIMENOrdering Facility: [facility] Address: [address] [place] [address] Performed By: #### 2 4323-8 ####[facility] LABCLIA [id number] [place] [address] Creatinine [Mass/Vol] 1.76 mg/dL High 0.73-1.22 [facility] Comment on above: Order Comment: Speci men Type: BLOOD SPECIMENOrdering Facility: [facility] Address: [address] [place] [address] Performed By: #### 2 4323-8 ####[facility] LABCLIA [id number] [place] [address] ESTIMATED GLOMERULAR FILTRATION RATE 38 mL/min/1.73m??? Low >=60 [facility] Comment on above: Order Comment: Speci men Type: BLOOD SPECIMENOrdering Facility: [facility] Address: [address] [place] [address] Result Comment: Faye mated Glomerular Filtration Rate (eGFR) is calculated using the 2020 CKD-EPI creatinine equation. This equation utilizes serum creatinine, sex, and age as parameters. The creatinine assay has traceable calibration to isotope dilution-mass spectrometry. Refer to KDIGO guidelines for clinical interpretation. In patients with unstable renal function, e.g. those with acute kidney injury, the eGFR may not accurately reflect actual GFR. Performed By: #### 2 4323-8 ####[facility] LABCLIA [id number] [place] [address] Glucose [Mass/Vol] 177 mg/dL High 74-99 [facility] Comment on above: Order Comment: Speci men Type: BLOOD SPECIMENOrdering Facility: [facility] Address: [address] [place] [address] Result Comment: The [place] [employer] (ADA) provides guidance for cutoff values for fasting glucose and random glucose. The ADA defines fasting as no caloric intake for at least 8 hours. Fasting plasma glucose results between 100 to 125 mg/dL indicate increased risk for diabetes (prediabetes).Fasting plasma glucose results greater than or equal to 126 mg/dL meet the criteria for diagnosis of diabetes. In the absence of unequivocal hyperglycemia, results should be confirmed by repeat testing. In a patient with classic symptoms of hyperglycemia or hyperglycemic crisis, random plasma glucose results greater than or equal to 200 mg/dL meet the criteria for diagnosis of diabetes.Reference: Standards of Medical Care in Diabetes 2016, [employer] [place] [employer]. Diabetes Care. 2016.39(Suppl 1). Performed By: #### 2 4323-8 ####[facility] LABCLIA [id number] [place] [address] Potassium [Moles/Vol] 3.9 mmol/L Normal 3.7-5.1 [facility] Comment on above: Order Comment: Speci men Type: BLOOD SPECIMENOrdering Facility: [facility] Address: [address] [place] [address] Performed By: #### 2 4323-8 ####[facility] LABCLIA [id number] [place] [address] Protein [Mass/Vol] 6.1 g/dL Low 6.3-8.0 [facility] Comment on above: Order Comment: Speci men Type: BLOOD SPECIMENOrdering Facility: [facility] Address: [address] [place] [address] Performed By: #### 2 4323-8 ####[facility] LABCLIA [id number] [place] [address] Sodium [Moles/Vol] 143 mmol/L Normal 136-144 [facility] Comment on above: Order Comment: Speci men Type: BLOOD SPECIMENOrdering Facility: [facility] Address: [address] [place] [address] Performed By: #### 2 4323-8 ####[facility] LABCLIA [id number] [place] [address] Urea nitrogen [Mass/Vol] 22 mg/dL Normal 9-24 [facility] Comment on above: Order Comment: Speci men Type: BLOOD SPECIMENOrdering Facility: [facility] Address: [address] [place] [address] Performed By: #### 2 4323-8 ####[facility] LABCLIA [id number] [place] [address] LDH SerPl-cCncon 04-29-2022 LDH [Catalytic activity/Vol] 212 U/L Normal 135-225 [facility] Comment on above: Order Comment: Speci men Type: BLOOD SPECIMENOrdering Facility: [facility] Address: [address] [place] [address] Performed By: #### 2 532-0 ####[facility] LABCLIA [id number] [place] [address] FLOW CYTOMETRY BONE MARROW R EFLEXon 04-27-2022 Case Report Flow Cytometry Case : [id number] Authorizing Provider: Asher Hummel MD Collected: 04/25/2022 08:35 AM Ordering Location: Hematology/Oncology Received: 04/26/2022 08:07 AM Pathologist: Josie Robison MD Specimen: Bone Marrow [facility] Gross Description A. Bone Marrow RECEIVED 1 ML BONE MARROW IN HEPARIN [facility] Interpretation Specimen type: Bone marrow aspirate Viability: 95% Flow Cytometry Bone Marrow Immunophenotyping Marker Normal Cell Type Result (Lymphocytes) CD3 T-cells Normal Pattern CD4 T-cell subset Normal Pattern CD5 T-cells Normal Pattern CD7 T/NK-cells Normal Pattern CD8 T-cell subset Normal Pattern CD13 Myeloid Normal Pattern CD16/56 NK cells Normal Pattern CD19 B-cells Normal Pattern CD34 Blasts Normal Pattern CD45 Sarmiento-leukocyte Normal Pattern kappa/lambda B-cells Polytypic Flow cytometric analysis of the bone marrow aspirate reveals that 6% of total events have the CD45 and light scatter properties of lymphocytes. The lymphocytes are composed of T-cells (83%, CD4:CD8 ratio = 0.93), NK cells (14%), and polytypic B-cells (3%). Granulocytic elements are 82% of events. Blasts are 2% of cellularity. Final Impression: There is no evidence of involvement by a lymphoproliferative disorder. Myeloid blasts are approximately 2% of cellularity. Correlation with the clinical and bone marrow histopathologic findings is suggested. Comment: This assay is not designed to detect minimal residual disease, plasma cell neoplasms, or myeloid antigen maturational patterns. This test was developed and its performance characteristics determined by [facility] [place] ([facility]). It has not been cleared or approved by the FDA. [facility] is regulated under CLIA as qualified to perform high-complexity testing. This test is used for clinical purposes. It should not be regarded as investigational or for research purposes. DSB/MS 04/26/2022 [facility] CBC W Auto Differential pane l (Bld)on 04-26-2022 Abs Baso 0.04 k/uL <0.11 k/uL [facility] Abs Elliott 0.36 k/uL <0.87 k/uL [facility] Absolute nRBC <0.01 k/uL [facility] Anisocytosis Ql (Bld) Present [facility] Basophils/100 WBC (Bld) 1.8 % [facility] Dacrocytes LM Ql (Bld) Few [facility] Differential cell count method Nom (Bld) Manual [facility] Eosinophils (Bld) [#/Vol] 0.06 10*3/uL <0.46 k/uL [facility] Eosinophils/100 WBC (Bld) 2.7 % [facility] Erythrocyte distribution width (RBC) [Ratio] 25.2 % High 11.5 - 15.0 % [facility] Giant platelets LM Ql (Bld) Occasional [facility] Hematocrit (Bld) [Volume fraction] 28.2 % Low 39.0 - 51.0 % [facility] Hemoglobin (Bld) [Mass/Vol] 9.0 g/dL Low 13.0 - 17.0 g/dL [facility] Lymphocytes (Bld) [#/Vol] 0.82 10*3/uL Low 1.00 - 4.00 k/uL [facility] Lymphocytes/100 WBC (Bld) 34.8 % [facility] MCH (RBC) [Entitic mass] 32.0 pg 26.0 - 34.0 pg [facility] MCHC (RBC) [Mass/Vol] 31.9 g/dL 30.5 - 36.0 g/dL [facility] MCV (RBC) [Entitic vol] 100.4 fL High 80.0 - 100.0 fL [facility] Monocytes/100 WBC (Bld) 15.2 % [facility] Neutrophils (Bld) [#/Vol] 1.07 10*3/uL Low 1.45 - 7.50 k/uL [facility] Neutrophils/100 WBC (Bld) 45.5 % [facility] Nucleated RBC/100 WBC (Bld) [Ratio] 0.0 /100 WBC [facility] Ovalocytes LM Ql (Bld) Few [facility] Platelet Estimate Decreased [facility] Platelet mean volume (Bld) [Entitic vol] [facility] Platelets (Bld) [#/Vol] 77 10*3/uL Low 150 - 400 k/uL [facility] Polychromasia LM Ql (Bld) Slight [facility] RBC (Bld) [#/Vol] 2.81 10*6/uL Low 4.20 - 6.00 m/uL [facility] RBC Fragments Few Abnormal None Seen [facility] Red Cell Morph Reviewed: see result s of individual morphologies [facility] Variant lymphocytes/100 WBC (Bld) 0.0 % [facility] WBC (Bld) [#/Vol] 2.35 10*3/uL Low 3.70 - 11. 00 k/uL [facility] FLOW CYTOMETRY BONE MARROW H OLD (BMHOLD)on 04-26-2022 Flow Cytometry Order Status See Results in chart under F case ID [facility] BONE MARROW ANALYSISon 04-25 ADDENDUM 1: Normal [facility] Comment on above: Order Comment: Speci men Type: BONE MARROW SPECIMENOrdering Facility: [facility] Address: [address] [place] [address] Result Comment: The Hematologic Neoplasm next generation sequencing panel was performed on this specimen and showed the following variant(s) of strong or potential clinical significance:TET2p.?, [id number], c.4182+1G>AVAF: 44.5%TET2p.I0821P, [id number], c.5618T>CVAF: 40%ZRSR2p.R30Vfs*8, NM_005089.3, c.88delCVAF: 91.1%And the following variant(s) of uncertain significance:XBRGG2d.M88NHF_752375.4: c.214C>TVAF: 100%Please refer to the Scanned Documents tab in [employer] to view the complete report. There is no change in the diagnosis based on these results.Addendum electronically signed by Josie Robison MD on 06/06/2022 at 3:20 PM Performed By: #### B MRT ####[facility] LABCLIA [id number] [address] CASE REPORT Normal [facility] Comment on above: Order Comment: Speci men Type: BONE MARROW SPECIMENOrdering Facility: [facility] Address: [address] [place] [address] Result Comment: Bone Marrow Pathology Report Case: [id number] Provider: Asher Hummel MD Collected: 04/25/2022 08:35 AMOrdering Location: Hematology/Oncology Received: 04/25/2022 09:22 AMPathologist: JAK Escobarpecimens: A) - BONE MARROW ASPIRATE RIGHT POSTERIOR ILIAC CREST B) - BONE MARROW BIOPSY RIGHT POSTERIOR ILIAC CREST C) - BONE MARROW CLOT RIGHT POSTERIOR ILIAC CREST D) - Peripheral blood smear Performed By: #### B MRT ####[facility] LABCLIA [id number] [address] OF [facility] DIAGNOSIS COMMENT Normal [facility] Comment on above: Order Comment: Speci men Type: BONE MARROW SPECIMENOrdering Facility: [facility] Address: [address] [address] Result Comment: The reported history of myelodysplastic syndrome is noted. The morphology of the current sample is consistent with persistent disease.Laboratory Developed Test (LDT) Disclaimer:Performance characteristics of immunohistochemical, immunofluorescent and chromogenic in-situ hybridization tests have been determined by the performing laboratory within [facility]???s [facility] Pathology and Laboratory Medicine [place] [facility], [facility], [facility] or [facility]) in a manner consistent with CLIA requirements. One or more of these tests have not been cleared or approved by the FDA. [facility] is regulated under CLIA as qualified to perform high-complexity testing. These tests are used for clinical purposes. They should not be regarded as investigational or for research. Positive and negative controls stain appropriately. Performed By: #### B MRT ####[facility] LABCLIA [id number] [address] FINAL DIAGNOSIS Normal [facility] Comment on above: Order Comment: Speci men Type: BONE MARROW SPECIMENOrdering Facility: [facility] Address: [address] [address] Result Comment: A-C. 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 Peripheral blood smear:- Normocytic anemia. Leukopenia. Thrombocytopenia. Performed By: #### B MRT ####[facility] LABCLIA [id number] [address] FINAL PERFORMING LAB Normal [facility] Comment on above: Order Comment: Speci men Type: BONE MARROW SPECIMENOrdering Facility: [facility] Address: [address] [address] Result Comment: Diag nostic interpretation performed at [facility], [address] [address] CLIA# [id number] Director: Candido Pierre M.D. Performed By: #### B MRT ####[facility] LABCLIA [id number] [address] GROSS DESCRIPTION Normal [facility] Comment on above: Order Comment: Speci men Type: BONE MARROW SPECIMENOrdering Facility: [facility] Address: [address] [place] [address] Result Comment: A. B ONE MARROW ASPIRATE RIGHT POSTERIOR ILIAC CRESTReceived are air-dried bone marrow aspirate smears. Submitted for light microscopy.B. BONE MARROW BIOPSY RIGHT POSTERIOR ILIAC CRESTReceived in formalin are two segments of cylindrical tissue aggregating to 1.6 x 0.2 x 0.2 cm, fatima and of a firm consistency. Totally submitted in one cassette after decalcification.C. BONE MARROW CLOT RIGHT POSTERIOR ILIAC CRESTReceived in formalin is one segment of red, hemorrhagic material measuring 2.5 x 1.7 x 0.2 cm. Totally submitted in one cassette.D. Peripheral blood smearReceived is a peripheral blood smear. Submitted for light microscopy.Gross examination performed at [facility], [address] 04/25/2022 7:59 PM Performed By: #### B MRT ####[facility] LABIA [id number] [address] MICROSCOPIC DESCRIPTION Normal [facility] Comment on above: Order Comment: Speci men Type: BONE MARROW SPECIMENOrdering Facility: [facility] Address: [address] [place] [address] Result Comment: JOO PHERAL BLOOD:CBC (04/25/22) Diff (by report)WBC 2.35 k/uL Neut% 45.5 %Hemoglobin 9.0 g/dL Lymph% 34.8 %MCV 100.4 fL Elliott% 15.2 %RDW-CV 25.2 % Eosin% 2.7 %Platelet Count 77 k/uL Baso% 1.8 %Other:Morphology/Interpretation: Pancytopenia; macrocytic anemia with Susan cytosis and few ovalocytes. Rare circulating blasts (less than 1%).BONE MARROW ASPIRATE:Result Normal Range4 % Blasts 0-22 % Promyelocytes 1-579 % Myelos/Metas/Bands/Segs 32-721 % Eosinophils 1-60 % Basophils 0-11 % Monocytes 0-46 % Erythroid precursors 13-377 % Lymphocytes 7-230 % Plasma cells 0-2 Myeloid/Erythro (1.5-4): >10 cells counted: 500 Iron stain result: Increased storage iron; rare ring sideroblasts (2%) Specimen Quality: Spicular, cellular, adequate Megakaryocytes: Present and abnormal, with small hypolobated forms, and some with multiple nuclei. Erythropoiesis: Progressive maturation, skewed toward early precursors Granulopoiesis: Progressive maturation with left shift and slight increase in blasts. Other: N/ABONE MARROW BIOPSY: Adequacy: Suboptimal due to aspiration artifact and fragmentation Cellularity: Increased (50%) ME ratio: Increased Hematopoiesis: Trilineage maturation with granulocytic hyperplasia Megakaryocytes: Slightly increased Megakaryocyte morphology: Abnormal, with small forms, hypolobated nuclei, and some forms with multiple nuclei Lymphoid infiltrate: None Bone trabeculae: Normal Other: Hemosiderin laden macrophages; immunohistochemistry performed to evaluate blasts and megakaryocytes shows no evident increase in CD34 positive blasts; abnormal CD61 positive megakaryocytes (small forms)CLOT SECTION: Marrow particles: Many Morphology: Similar to biopsy Other: N/AANCILLARY TESTS: Flow cytometry: Performed Cytogenetics: Pending FISH: N/A Molecular: Myeloid NGS panel, buffy coat stored Performed By: #### B MRT ####[facility] LABHUAN [id number] [place] [address] [place] BONE MARROW CHROMOSOME ANALo n 04-25-2022 CHROMOSOME BM Normal [facility] Comment on above: Order Comment: Speci men Type: BONE MARROW SPECIMENOrdering Facility: [facility] Address: [address] [place] [address] Result Comment: Lian ramirez Accession Number: [id number]: Asher HummelPathologist: Annurgical Pathology No: [id number] diagnosis: Myelodysplastic syndromeSpecimen Type: Bone marrowNumber of cells counted: 20Number of cells analyzed: 20Number of cells karyotyped: 20Banding resolution: 400Banding method: G-bandingDIAGNOSIS: 46,XY[20]INTERPRETATION: Normal, male karyotypeCOMMENT: Twenty metaphase cells were analyzed from the culturesupplemented with GM-CSF. Twenty cells analyzed showed a 46,XYkaryotype or had random chromosomal loss or non-clonal (single cell)structural changes, attributed to culture artifact. There was nosignificant numerical chromosome abnormality and no structural changedetected within the limits of resolution.The analysis in May 2020 also showed a normal karyotype.Clinical and pathologic correlation is recommended.As reviewed by Naomi Sena, PhD, FACMGPerformed by [facility] HospitalPathology and Laboratory Medicine InstituteDivision of Molecular PathologyCytogenetics Lab, [facility]-[address] [place], [place] [address]Phone: Toll free: Performed By: #### C [facility] ####[facility] ILLUMINA LIMSCLIA [id number] [place] [address] [place] CBC W Auto Differential pane l (Bld)on 04-25-2022 Anisocytosis Ql (Bld) Present Normal [facility] Comment on above: Order Comment: Speci men Type: BLOOD SPECIMENOrdering Facility: [facility] Address: [address] [place] [address] Performed By: #### 5 7021-8 ####[facility] LABCLIA [id number] [address] LABCLIA [id number] [place] [address] [place] Basophils/100 WBC (Bld) 1.8 % Normal [facility] Comment on above: Order Comment: Speci men Type: BLOOD SPECIMENOrdering Facility: [facility] Address: [address] [address] Performed By: #### 5 7021-8 ####[facility] LABCLIA [id number] [address] LABCLIA [id number] [place] [address] [place] Dacrocytes LM Ql (Bld) Few Normal [facility] Comment on above: Order Comment: Speci men Type: BLOOD SPECIMENOrdering Facility: [facility] Address: [address] [place] [address] Performed By: #### 5 7021-8 ####[facility] LABCLIA [id number] [address] LABCLIA [id number] [place] [address] [place] Differential cell count method Nom (Bld) Manual Normal [facility] Comment on above: Order Comment: Speci men Type: BLOOD SPECIMENOrdering Facility: [facility] Address: [address] [place] [address] Performed By: #### 5 7021-8 ####[facility] LABCLIA [id number] [address] LABCLIA [id number] [place] [address] [place] Eosinophils (Bld) [#/Vol] 0.06 10*3/uL Normal <0.46 [facility] Comment on above: Order Comment: Speci men Type: BLOOD SPECIMENOrdering Facility: [facility] Address: [address] [place], [place] [address] Performed By: #### 5 7021-8 ####[facility] LABCLIA [id number] [address] LABCLIA [id number] [place] [address] [place] Eosinophils/100 WBC (Bld) 2.7 % Normal [facility] Comment on above: Order Comment: Speci men Type: BLOOD SPECIMENOrdering Facility: [facility] Address: [address] [place] [address] Performed By: #### 5 7021-8 ####[facility] LABCLIA [id number] [address] LABCLIA [id number] [place] [address] [place] Erythrocyte distribution width (RBC) [Ratio] 25.2 % High 11.5-15.0 [facility] Comment on above: Order Comment: Speci men Type: BLOOD SPECIMENOrdering Facility: [facility] Address: [address] [place] [address] Performed By: #### 5 7021-8 ####[facility] LABCLIA [id number] [address] LABCLIA [id number] [place] [address] [place] Giant platelets LM Ql (Bld) Occasional Normal [facility] Comment on above: Order Comment: Speci men Type: BLOOD SPECIMENOrdering Facility: [facility] Address: [address] [place] [address] Performed By: #### 5 7021-8 ####[facility] LABCLIA [id number] [address] LABCLIA [id number] [place] [address] [place] Hematocrit (Bld) [Volume fraction] 28.2 % Low 39.0-51.0 [facility] Comment on above: Order Comment: Speci men Type: BLOOD SPECIMENOrdering Facility: [facility] Address: [address] [place], [place] [address] Performed By: #### 5 7021-8 ####[facility] LABCLIA [id number] [address] LABCLIA [id number] [place] [address] [place] Hemoglobin (Bld) [Mass/Vol] 9.0 g/dL Low 13.0-17.0 [facility] Comment on above: Order Comment: Speci men Type: BLOOD SPECIMENOrdering Facility: [facility] Address: [address] [place] [address] Performed By: #### 5 7021-8 ####[facility] LABCLIA [id number] [address] LABCLIA [id number] [place] [address] [place] Lymphocytes (Bld) [#/Vol] 0.82 10*3/uL Low 1.00-4.00 [facility] Comment on above: Order Comment: Speci men Type: BLOOD SPECIMENOrdering Facility: [facility] Address: [address] [place] [address] Performed By: #### 5 7021-8 ####[facility] LABCLIA [id number] [address] LABCLIA [id number] [place] [address] [place] Lymphocytes/100 WBC (Bld) 34.8 % Normal [facility] Comment on above: Order Comment: Speci men Type: BLOOD SPECIMENOrdering Facility: [facility] Address: [address] [place] [address] Performed By: #### 5 7021-8 ####[facility] LABCLIA [id number] [address] LABCLIA [id number] [place] [address] [place] MCH (RBC) [Entitic mass] 32.0 pg Normal 26.0-34.0 [facility] Comment on above: Order Comment: Speci men Type: BLOOD SPECIMENOrdering Facility: [facility] Address: [address] [place], [place] [address] Performed By: #### 5 7021-8 ####[facility] LABCLIA [id number] [address] LABCLIA [id number] [place] [address] [place] MCHC (RBC) [Mass/Vol] 31.9 g/dL Normal 30.5-36.0 [facility] Comment on above: Order Comment: Speci men Type: BLOOD SPECIMENOrdering Facility: [facility] Address: [address] [place] [address] Performed By: #### 5 7021-8 ####[facility] LABCLIA [id number] [address] LABCLIA [id number] [place] [address] [place] MCV (RBC) [Entitic vol] 100.4 fL High 80.0-100.0 [facility] Comment on above: Order Comment: Speci men Type: BLOOD SPECIMENOrdering Facility: [facility] Address: [address] [place], [place] [address] Performed By: #### 5 7021-8 ####[facility] LABCLIA [id number] [address] LABCLIA [id number] [place] [address] [place] Neutrophils (Bld) [#/Vol] 1.07 10*3/uL Low 1.45-7.50 [facility] Comment on above: Order Comment: Speci men Type: BLOOD SPECIMENOrdering Facility: [facility] Address: [address] [place], [place] [address] Performed By: #### 5 7021-8 ####[facility] LABCLIA [id number] [address] LABCLIA [id number] [place] [address] [place] Neutrophils/100 WBC (Bld) 45.5 % Normal [facility] Comment on above: Order Comment: Speci men Type: BLOOD SPECIMENOrdering Facility: [facility] Address: [address] [place] [address] Performed By: #### 5 7021-8 ####[facility] LABCLIA [id number] [address] LABCLIA [id number] [place] [address] [place] Nucleated RBC/100 WBC (Bld) [Ratio] 0.0 /100 WBC Normal [facility] Comment on above: Order Comment: Speci men Type: BLOOD SPECIMENOrdering Facility: [facility] Address: [address] [place] [address] Performed By: #### 5 7021-8 ####[facility] LABCLIA [id number] [address] LABCLIA [id number] [place] [address] [place] Ovalocytes LM Ql (Bld) Few Normal [facility] Comment on above: Order Comment: Speci men Type: BLOOD SPECIMENOrdering Facility: [facility] Address: [address] [place] [address] Performed By: #### 5 7021-8 ####[facility] LABCLIA [id number] [address] LABCLIA [id number] [place] [address] [place] PLATELET ESTIMATE Decreased Normal [facility] Comment on above: Order Comment: Speci men Type: BLOOD SPECIMENOrdering Facility: [facility] Address: [address] [place] [address] Performed By: #### 5 7021-8 ####[facility] LABCLIA [id number] [address] LABCLIA [id number] [place] [address] [place] Platelet mean volume (Bld) [Entitic vol] Normal [facility] Comment on above: Order Comment: Speci men Type: BLOOD SPECIMENOrdering Facility: [facility] Address: [address] [place] [address] Result Comment: Unab le to Report. Performed By: #### 5 7021-8 ####[facility] LABCLIA [id number] [address] LABCLIA [id number] [place] [address] [place] Platelets (Bld) [#/Vol] 77 10*3/uL Low 150-400 [facility] Comment on above: Order Comment: Speci men Type: BLOOD SPECIMENOrdering Facility: [facility] Address: [address] [place] [address] Result Comment: Samp le checked for clot Performed By: #### 5 7021-8 ####[facility] LABCLIA [id number] [address] LABCLIA [id number] [place] [address] [place] Polychromasia LM Ql (Bld) Slight Normal [facility] Comment on above: Order Comment: Speci men Type: BLOOD SPECIMENOrdering Facility: [facility] Address: [address] [place] [address] Performed By: #### 5 7021-8 ####[facility] LABCLIA [id number] [address] LABCLIA [id number] [place] [address] [place] RBC (Bld) [#/Vol] 2.81 10*6/uL Low 4.20-6.00 [facility] Comment on above: Order Comment: Speci men Type: BLOOD SPECIMENOrdering Facility: [facility] Address: [address] [place] [address] Performed By: #### 5 7021-8 ####[facility] LABCLIA [id number] [address] LABCLIA [id number] [place] [address] [place] RBC FRAGMENTS Few Abnormal None Seen [facility] Comment on above: Order Comment: Speci men Type: BLOOD SPECIMENOrdering Facility: [facility] Address: [address] [place] [address] Performed By: #### 5 7021-8 ####[facility] LABCLIA [id number] [address] LABCLIA [id number] [place] [address] [place] RED CELL MORPH Reviewed: see result s of individual morphologies Normal [facility] Comment on above: Order Comment: Speci men Type: BLOOD SPECIMENOrdering Facility: [facility] Address: [address] [place] [address] Performed By: #### 5 7021-8 ####[facility] LABCLIA [id number] [address] LABCLIA [id number] [place] [address] [place] Variant lymphocytes/100 WBC (Bld) 0.0 % Normal [facility] Comment on above: Order Comment: Speci men Type: BLOOD SPECIMENOrdering Facility: [facility] Address: [address] [place] [address] Performed By: #### 5 7021-8 ####[facility] LABCLIA [id number] [address] LABCLIA [id number] [place] [address] [place] WAM - ABS BASO 0.04 k/uL Normal <0.11 [facility] Comment on above: Order Comment: Speci men Type: BLOOD SPECIMENOrdering Facility: [facility] Address: [address] [place], [place] [address] Performed By: #### 5 7021-8 ####[facility] LABCLIA [id number] [address] LABCLIA [id number] [place] [address] [place] WAM - ABS MONO 0.36 k/uL Normal <0.87 [facility] Comment on above: Order Comment: Speci men Type: BLOOD SPECIMENOrdering Facility: [facility] Address: [address] [place] [address] Performed By: #### 5 7021-8 ####[facility] LABCLIA [id number] [address] LABCLIA [id number] [place] [address] [place] WAM - MONO% 15.2 % Normal [facility] Comment on above: Order Comment: Speci men Type: BLOOD SPECIMENOrdering Facility: [facility] Address: [address] [place] [address] Performed By: #### 5 7021-8 ####[facility] LABCLIA [id number] [address] LABCLIA [id number] [place] [address] [place] WAM ABSOLUTE NRBC <0.01 Normal <0.01 [facility] Comment on above: Order Comment: Speci men Type: BLOOD SPECIMENOrdering Facility: [facility] Address: [address] [place] [address] Result Comment: This result was previously suppressed from the chart. Performed By: #### 5 7021-8 ####[facility] LABCLIA [id number] [place], [place] [address] LABCLIA [id number] [place] [address] [place] WBC (Bld) [#/Vol] 2.35 10*3/uL Low 3.70-11.00 [facility] Comment on above: Order Comment: Speci men Type: BLOOD SPECIMENOrdering Facility: [facility] Address: [address] [place], [place] [address] Result Comment: Samp le checked for clot Performed By: #### 5 7021-8 ####[facility] LABCLIA [id number] [place], [place] [address] LABCLIA [id number] [place] [address] [place] CNOVSPon 04-25-2022 CNOVSP Normal [facility] Comprehensive metabolic 2000 panelon 04-25-2022 Albumin [Mass/Vol] 4.0 g/dL Normal 3.9-4.9 [facility] Comment on above: Order Comment: Speci men Type: BLOOD SPECIMENOrdering Facility: [facility] Address: [address] [place], [place] [address] Performed By: #### 2 532-0, 08328-8 ####[facility] LABCLIA [id number] [place] [address] ALP [Catalytic activity/Vol] 83 U/L Normal 38-113 [facility] Comment on above: Order Comment: Speci men Type: BLOOD SPECIMENOrdering Facility: [facility] Address: [address] [place] [address] Performed By: #### 2 532-0, 24985-9 ####[facility] LABCLIA [id number] [place] [address] ALT [Catalytic activity/Vol] 31 U/L Normal 10-54 [facility] Comment on above: Order Comment: Speci men Type: BLOOD SPECIMENOrdering Facility: [facility] Address: [address] [place], [place] [address] Performed By: #### 2 532-0, ####[facility] LABCLIA [id number] [place] [address] Anion gap [Moles/Vol] 10 mmol/L Normal 9-18 [facility] Comment on above: Order Comment: Speci men Type: BLOOD SPECIMENOrdering Facility: [facility] Address: [address] [place] [address] Performed By: #### 2 532-0, ####[facility] LABCLIA [id number] [place] [address] AST [Catalytic activity/Vol] 17 U/L Normal 14-40 [facility] Comment on above: Order Comment: Speci men Type: BLOOD SPECIMENOrdering Facility: [facility] Address: [address] [place] [address] Performed By: #### 2 532-0, ####[facility] LABCLIA [id number] [place] [address] Bilirubin [Mass/Vol] 1.0 mg/dL Normal 0.2-1.3 [facility] Comment on above: Order Comment: Speci men Type: BLOOD SPECIMENOrdering Facility: [facility] Address: [address] [place] [address] Performed By: #### 2 532-0, 92236-6 ####[facility] LABCLIA [id number] [place] [address] Calcium [Mass/Vol] 8.9 mg/dL Normal 8.5-10.2 [facility] Comment on above: Order Comment: Speci men Type: BLOOD SPECIMENOrdering Facility: [facility] Address: [address] [place], [place] [address] Performed By: #### 2 532-0, 85131-6 ####[facility] LABCLIA [id number] [place] [address] Chloride [Moles/Vol] 104 mmol/L Normal 97-105 [facility] Comment on above: Order Comment: Speci men Type: BLOOD SPECIMENOrdering Facility: [facility] Address: [address] [place] [address] Performed By: #### 2 532-0, 91043-8 ####[facility] LABCLIA [id number] [place] [address] CO2 [Moles/Vol] 29 mmol/L Normal 22-30 [facility] Comment on above: Order Comment: Speci men Type: BLOOD SPECIMENOrdering Facility: [facility] Address: [address] [place] [address] Performed By: #### 2 532-0, 35431-8 ####[facility] LABCLIA [id number] [place] [address] Creatinine [Mass/Vol] 1.79 mg/dL High 0.73-1.22 [facility] Comment on above: Order Comment: Speci men Type: BLOOD SPECIMENOrdering Facility: [facility] Address: [address] [place] [address] Performed By: #### 2 532-0, 87436-2 ####[facility] LABIA [id number] [place] [address] ESTIMATED GLOMERULAR FILTRATION RATE 37 mL/min/1.73m??? Low >=60 [facility] Comment on above: Order Comment: Speci men Type: BLOOD SPECIMENOrdering Facility: [facility] Address: [address] [place] [address] Result Comment: Faye mated Glomerular Filtration Rate (eGFR) is calculated using the 2020 CKD-EPI creatinine equation. This equation utilizes serum creatinine, sex, and age as parameters. The creatinine assay has traceable calibration to isotope dilution-mass spectrometry. Refer to KDIGO guidelines for clinical interpretation. In patients with unstable renal function, e.g. those with acute kidney injury, the eGFR may not accurately reflect actual GFR. Performed By: #### 2 532-0, 23257-3 ####[facility] LABCLIA [id number] [place] [address] Glucose [Mass/Vol] 127 mg/dL High 74-99 [facility] Comment on above: Order Comment: Speci men Type: BLOOD SPECIMENOrdering Facility: [facility] Address: [address] [place] [address] Result Comment: The [place] Diabetes [employer] (ADA) provides guidance for cutoff values for fasting glucose and random glucose. The ADA defines fasting as no caloric intake for at least 8 hours. Fasting plasma glucose results between 100 to 125 mg/dL indicate increased risk for diabetes (prediabetes).Fasting plasma glucose results greater than or equal to 126 mg/dL meet the criteria for diagnosis of diabetes. In the absence of unequivocal hyperglycemia, results should be confirmed by repeat testing. In a patient with classic symptoms of hyperglycemia or hyperglycemic crisis, random plasma glucose results greater than or equal to 200 mg/dL meet the criteria for diagnosis of diabetes.Reference: Standards of Medical Care in Diabetes 2016, [place] [employer]. Diabetes Care. 2016.39(Suppl 1). Performed By: #### 2 532-0, 64635-4 ####[facility] LABCLIA [id number] [place] [address] Potassium [Moles/Vol] 4.3 mmol/L Normal 3.7-5.1 [facility] Comment on above: Order Comment: Speci men Type: BLOOD SPECIMENOrdering Facility: [facility] Address: [address] [place] [address] Performed By: #### 2 532-0, 58327-4 ####[facility] LABCLIA [id number] [place] [address] Protein [Mass/Vol] 6.1 g/dL Low 6.3-8.0 [facility] Comment on above: Order Comment: Speci men Type: BLOOD SPECIMENOrdering Facility: [facility] Address: [address] [place] [address] Performed By: #### 2 532-0, 27915-2 ####[facility] LABCLIA [id number] [place] [address] Sodium [Moles/Vol] 143 mmol/L Normal 136-144 [facility] Comment on above: Order Comment: Speci men Type: BLOOD SPECIMENOrdering Facility: [facility] Address: [address] [place] [address] Performed By: #### 2 532-0, 48578-9 ####[facility] LABCLIA [id number] [place] [address] Urea nitrogen [Mass/Vol] 29 mg/dL High 9-24 [facility] Comment on above: Order Comment: Speci men Type: BLOOD SPECIMENOrdering Facility: [facility] Address: [address] [place] [address] Performed By: #### 2 532-0, 98215-2 ####[facility] LABCLIA [id number] [place] [address] Albumin [Mass/Vol] 4.0 g/dL 3.9 - 4.9 g/dL [facility] ALP [Catalytic activity/Vol] 83 U/L 38 - 113 U/L [facility] ALT [Catalytic activity/Vol] 31 U/L 10 - 54 U/L [facility] Anion gap [Moles/Vol] 10 mmol/L 9 - 18 mmol/L [facility] AST [Catalytic activity/Vol] 17 U/L 14 - 40 U/L [facility] Bilirubin [Mass/Vol] 1.0 mg/dL 0.2 - 1.3 mg/dL [facility] Calcium [Mass/Vol] 8.9 mg/dL 8.5 - 10.2 mg/dL [facility] Chloride [Moles/Vol] 104 mmol/L 97 - 105 mmol/L [facility] CO2 [Moles/Vol] 29 mmol/L 22 - 30 mmol/L [facility] Creatinine [Mass/Vol] 1.79 mg/dL High 0.73 - 1.22 mg/dL [facility] Estimated Glomerular Filtration Rate 37 mL/min/1.73m Low >=60 mL/min/1.73m [facility] Glucose [Mass/Vol] 127 mg/dL High 74 - 99 mg/dL [facility] Potassium [Moles/Vol] 4.3 mmol/L 3.7 - 5.1 mmol/L [facility] Protein [Mass/Vol] 6.1 g/dL Low 6.3 - 8.0 g/dL [facility] Sodium [Moles/Vol] 143 mmol/L 136 - 144 mmol/L [facility] Urea nitrogen [Mass/Vol] 29 mg/dL High 9 - 24 mg/dL [facility] DNA EXTRACTION BONE MARROW ( BUFFY COAT)on 04-25-2022 DNA EXTRACTION BONE MARROW (BUFFY COAT) Normal [facility] Comment on above: Order Comment: Speci men Type: BONE MARROW SPECIMENOrdering Facility: [facility] Address: [address] [place] [address] Result Comment: This specimen was received and successfully processed for future DNA purification should molecular testing be needed. Specimens will be available for 3 years from date of collection.To order testing on this specimen for [facility] patients, please place an [facility] order for DNA and RNA Clinical Testing (SQNUCADD). To order testing for patients outside of the [facility] system, please request DNA and RNA for Clinical Testing, order code [id number].If additional paperwork is required for testing, please send completed forms via secure email to [email or web address]. Performed By: #### N UCBUF ####[facility] LIMSCLIA [id number] [address] OF [facility] FLOW CYTOMETRY BONE MARROW H OLD (BMHOLD)on 04-25-2022 FLOW CYTOMETRY ORDER STATUS See Results in chart under F case ID Normal [facility] Comment on above: Order Comment: Speci men Type: BONE MARROW SPECIMENOrdering Facility: [facility] Address: [address] [place] [address] Performed By: #### B MHOLDRFLX, BMHOLD ####[facility] LABCLIA [id number] [place] [address] [place] FLOW CYTOMETRY BONE MARROW R EFANIRUDHon 04-25-2022 CASE REPORT Normal [facility] Comment on above: Order Comment: Speci men Type: BONE MARROW SPECIMENOrdering Facility: [facility] Address: [address] [place] [address] Result Comment: Flow Cytometry Case: [id number] Provider: Asher Hummel MD Collected: 04/25/2022 08:35 AMOrdering Location: Hematology/Oncology Received: 04/26/2022 08:07 AMPathologist: JAK Escobarpecimen: Bone Marrow Performed By: #### B CHRIS, BMHOLD ####[facility] LABCLIA [id number] [place] [address] [place] GROSS DESCRIPTION A. Bone Marrow Normal [facility] Comment on above: Order Comment: Speci men Type: BONE MARROW SPECIMENOrdering Facility: [facility] Address: [address] [place] [address] Result Comment: RECE IVED 1 ML BONE MARROW IN HEPARIN Performed By: #### B CHRIS, BMHOLD ####[facility] LABCLIA [id number] [place] [address] [place] INTERPRETATION Normal [facility] Comment on above: Order Comment: Speci men Type: BONE MARROW SPECIMENOrdering Facility: [facility] Address: [address] [place] [address] Result Comment: Spec imen type: Bone marrow aspirateViability: 95%Flow Cytometry Bone Marrow ImmunophenotypingMarker Normal Cell Type Result (Lymphocytes)CD3 T-cells Normal PatternCD4 T-cell subset Normal PatternCD5 T-cells Normal PatternCD7 T/NK-cells Normal PatternCD8 T-cell subset Normal AvteyaaLT35 Myeloid Normal SanmxrjAY89/56 NK cells Normal VfowkodNR17 B-cells Normal VqssdkaLK50 Blasts Normal HkcwkxxXO93 Sarmiento-leukocyte Normal Patternkappa/lambda B-cells PolytypicFlow cytometric analysis of the bone marrow aspirate reveals that 6% of total events have the CD45 and light scatter properties of lymphocytes. The lymphocytes are composed of T-cells (83%, CD4:CD8 ratio = 0.93), NK cells (14%), and polytypic B-cells (3%). Granulocytic elements are 82% of events. Blasts are 2% of cellularity.Final Impression:There is no evidence of involvement by a lymphoproliferative disorder. Myeloid blasts are approximately 2% of cellularity. Correlation with the clinical and bone marrow histopathologic findings is suggested.Comment:This assay is not designed to detect minimal residual disease, plasma cell neoplasms, or myeloid antigen maturational patterns.This test was developed and its performance characteristics determined by [facility]???[facility] [place] ([facility]). It has not been cleared or approved by the FDA. [facility] is regulated under CLIA as qualified to perform high-complexity testing. This test is used for clinical purposes. It should not be regarded as investigational or for research purposes.DSB/MS 04/26/2022 Diagnostic interpretation performed at [facility], [address] [place] [address] CLIA# [id number] Director: Candido Pierre M.D. Performed By: #### Jude MHOLDRFLX, BMHOLD ####[facility] LABCLIA [id number] [place] [address] [place] FLT3 ITD HN BONE MARROWon [facility] SIGNOUT PATHOLOGIST [id number] Normal [facility] Comment on above: Order Comment: Speci men Type: BONE MARROW SPECIMENOrdering Facility: [facility] Address: [address] [place] [address] Performed By: #### Tobias YMNGS, F3IM ####[facility] LIMSCLIA [id number] [place] [address] [place] FLT3 ITD HN PANEL BONE MARROW Normal [facility] Comment on above: Order Comment: Speci men Type: BONE MARROW SPECIMENOrdering Facility: [facility] Address: [address], [place] [address] Result Comment: FLT3 Internal Tandem Duplication (ITD) Mutation TestingLaboratory Accession Number: [id number] Internal Tandem Duplication (ITD) mutation: Not DetectedComment:FLT3/ITD is found in approx. 20-30% of adult patients and in approx.5-12% of infants and children with acute myeloid leukemia (AML).FLT3/ITD are most often associated with a normal karyotype, t(15;17),and t(6;9). FLT3/ITD is associated with leukocytosis and a poorprognosis in both children and adults. In cytogenetically normal AML,FLT3/ITD has been associated with a poor prognosis. FLT3 mutationstatus has been reported to change between diagnosis and relapse; thismay relate to the instability of FLT3 mutations.Methodology:DNA is isolated from the specimen provided. Regions of the WGY0awgaezyp kinase receptor gene are subjected to the polymerase chainreaction (PCR) using fluorescently labeled forward PCR primers. PCRproducts are analyzed by capillary gel electrophoresis for in-framelength mutations (ITD mutations). This assay can detect ITD mutantalleles which represent approx. 5-10% of the total alleles. The ITDratio is calculated as the area under the curve of the ITD signal tothe area under the curve of the wild type signal.Limitations:Due to the diversity of potential ITD mutations, standardizedcalibration material is not available and calculated ITD peak ratiosmay therefore not be directly comparable across laboratories. As PCRefficiency varies with the size of the insertion mutation, calculatedpeak ratios may not necessarily correlate with percentage of mutantalleles. ITD ratio information should be interpreted with caution, inconjunction with other cytogenetic and molecular findings to assessprognosis within myeloid neoplasms.References:1) Quanelli MP, Jackti P, Tiacci E, et al. Mutational landscapeof AML with normal cytogenetics: biological and clinical implications.Blood Rev.2013;27:13-22.2) [place], Paula M, Mickey MISTRY, et al. Prognostic relevance ofintegrated genetic profiling in acute myeloid leukemia. N Engl J Med.2012 Oct 16;366 (12):1079-89.3) Akosua H, Carlo E, Grimwade D, et al. Diagnosis and mangement ofAML in adults: 2017 ELN recommendations from an international expertpanel. Blood 129,424-448 (2017).Disclaimer:This test was developed and its performance characteristics determinedby [facility] [place] ([facility]). It has not been cleared or approved bythe FDA. [facility] is regulated under CLIA as certified to perform high-complexity testing. This test is used for clinical purposes. It shouldnot be regarded as investigational or for research.Testing and interpretation performed at [facility], [address] [place] [address]. CLIA Number: [id number] reviewed by Lisa Hernadez, PhD, FLASH Performed By: #### M DEENA, F3IM ####[facility] LIMSCLIA [id number] [place] [address] [place] LD LACTATE DEHYDROon 022 LDH [Catalytic activity/Vol] 234 U/L High 135 - 225 U/L [facility] LDH SerPl-cCncon 04-25-2022 LDH [Catalytic activity/Vol] 234 U/L High 135-225 [facility] Comment on above: Order Comment: Speci men Type: BLOOD SPECIMENOrdering Facility: [facility] Address: [address] [place] [address] Performed By: #### 2 532-0, 60298-0 ####[facility] LABCLIA [id number] [place] [id number] MYELOID NGS PANEL BONE MARRO Won 04-25-2022 MYELOID NGS PANEL BONE MARROW Normal [facility] Comment on above: Order Comment: Speci men Type: BONE MARROW SPECIMENOrdering Facility: [facility] Address: [address] [place] [address] Result Comment: Myel oid NGS Panel Bone MarrowLaboratory Accession Number: [id number]:Please see linked document and/or separate report for full result whenavailable.As reviewed by Lisa Hernadez, PhD, FLASH Performed By: #### M YMNGS, F3IM ####[facility] LIMSCLIA [id number] [place] [address] [place] CNPNon 04-23-2022 CNPN Normal [facility] CBC W Auto Differential pane l (Bld)on 04-22-2022 Anisocytosis Ql (Bld) Present Normal [facility] Comment on above: Order Comment: Speci men Type: BLOOD SPECIMENOrdering Facility: [facility] Address: [address] [place] [address] Performed By: #### 5 7021-8 ####[facility] LABCLIA [id number] [address] LABCLIA [id number] [place] [address] Basophils/100 WBC (Bld) 0.0 % Normal [facility] Comment on above: Order Comment: Speci men Type: BLOOD SPECIMENOrdering Facility: [facility] Address: [address] [place] [address] Performed By: #### 5 7021-8 ####[facility] LABCLIA [id number] [address] LABCLIA [id number] [place] [address] Dacrocytes LM Ql (Bld) Few Normal [facility] Comment on above: Order Comment: Speci men Type: BLOOD SPECIMENOrdering Facility: [facility] Address: [address] [place] [address] Performed By: #### 5 7021-8 ####[facility] LABCLIA [id number] [address] LABCLIA [id number] [place] [address] Differential cell count method Nom (Bld) Manual Normal [facility] Comment on above: Order Comment: Speci men Type: BLOOD SPECIMENOrdering Facility: [facility] Address: [address] [place], [place] [address] Performed By: #### 5 7021-8 ####[facility] LABCLIA [id number] [address] LABCLIA [id number] [place] [address] Eosinophils (Bld) [#/Vol] 0.04 10*3/uL Normal <0.46 [facility] Comment on above: Order Comment: Speci men Type: BLOOD SPECIMENOrdering Facility: [facility] Address: [address] [place], [place] [address] Performed By: #### 5 7021-8 ####[facility] LABCLIA [id number] [address] LABCLIA [id number] [place] [address] Eosinophils/100 WBC (Bld) 2.0 % Normal [facility] Comment on above: Order Comment: Speci men Type: BLOOD SPECIMENOrdering Facility: [facility] Address: [address] [place], [place] [address] Performed By: #### 5 7021-8 ####[facility] LABCLIA [id number] [address] LABCLIA [id number] [place] [address] Erythrocyte distribution width (RBC) [Ratio] 26.1 % High 11.5-15.0 [facility] Comment on above: Order Comment: Speci men Type: BLOOD SPECIMENOrdering Facility: [facility] Address: [address] [place], [place] [address] Performed By: #### 5 7021-8 ####[facility] LABCLIA [id number] [address] [facility] LABCLIA [id number] [place] [address] Hematocrit (Bld) [Volume fraction] 23.8 % Low 39.0-51.0 [facility] Comment on above: Order Comment: Speci men Type: BLOOD SPECIMENOrdering Facility: [facility] Address: [address] [place] [address] Performed By: #### 5 7021-8 ####[facility] LABCLIA [id number] [address] LABCLIA [id number] [place] [address] Hemoglobin (Bld) [Mass/Vol] 7.5 g/dL Low 13.0-17.0 [facility] Comment on above: Order Comment: Speci men Type: BLOOD SPECIMENOrdering Facility: [facility] Address: [address] [place] [address] Performed By: #### 5 7021-8 ####[facility] LABCLIA [id number] [address] LABCLIA [id number] [place] [address] Lymphocytes (Bld) [#/Vol] 0.89 10*3/uL Low 1.00-4.00 [facility] Comment on above: Order Comment: Speci men Type: BLOOD SPECIMENOrdering Facility: [facility] Address: [address] [place] [address] Performed By: #### 5 7021-8 ####[facility] LABCLIA [id number] [address] LABCLIA [id number] [place] [address] Lymphocytes/100 WBC (Bld) 43.0 % Normal [facility] Comment on above: Order Comment: Speci men Type: BLOOD SPECIMENOrdering Facility: [facility] Address: [address] [place] [address] Performed By: #### 5 7021-8 ####[facility] LABCLIA [id number] [address] LABCLIA [id number] [place] [address] MCH (RBC) [Entitic mass] 33.2 pg Normal 26.0-34.0 [facility] Comment on above: Order Comment: Speci men Type: BLOOD SPECIMENOrdering Facility: [facility] Address: [address] [place] [address] Performed By: #### 5 7021-8 ####[facility] LABCLIA [id number] [address] LABCLIA [id number] [place] [address] MCHC (RBC) [Mass/Vol] 31.5 g/dL Normal 30.5-36.0 [facility] Comment on above: Order Comment: Speci men Type: BLOOD SPECIMENOrdering Facility: [facility] Address: [address] [place] [address] Performed By: #### 5 7021-8 ####[facility] LABCLIA [id number] [address] LABCLIA [id number] [place] [address] MCV (RBC) [Entitic vol] 105.3 fL High 80.0-100.0 [facility] Comment on above: Order Comment: Speci men Type: BLOOD SPECIMENOrdering Facility: [facility] Address: [address] [place], [place] [address] Performed By: #### 5 7021-8 ####[facility] LABCLIA [id number] [address] LABCLIA [id number] [place] [address] MYELO% 1.0 % Normal [facility] Comment on above: Order Comment: Speci men Type: BLOOD SPECIMENOrdering Facility: [facility] Address: [address] [place] [address] Performed By: #### 5 7021-8 ####[facility] LABCLIA [id number] [place] [id number] [facility] LABCLIA [id number] [place] [address] Neutrophils (Bld) [#/Vol] 0.72 10*3/uL Low 1.45-7.50 [facility] Comment on above: Order Comment: Speci men Type: BLOOD SPECIMENOrdering Facility: [facility] Address: [address] [place] [address] Performed By: #### 5 7021-8 ####[facility] LABCLIA [id number] [address] LABCLIA [id number] [place] [address] Neutrophils/100 WBC (Bld) 35.0 % Normal [facility] Comment on above: Order Comment: Speci men Type: BLOOD SPECIMENOrdering Facility: [facility] Address: [address] [place], [place] [address] Performed By: #### 5 7021-8 ####[facility] LABCLIA [id number] [address] LABCLIA [id number] [place] [address] Nucleated RBC/100 WBC (Bld) [Ratio] 0.0 /100 WBC Normal [facility] Comment on above: Order Comment: Speci men Type: BLOOD SPECIMENOrdering Facility: [facility] Address: [address] [place] [address] Performed By: #### 5 7021-8 ####[facility] LABCLIA [id number] [place] [id number] [facility] LABCLIA [id number] [place] [address] Ovalocytes LM Ql (Bld) Few Normal [facility] Comment on above: Order Comment: Speci men Type: BLOOD SPECIMENOrdering Facility: [facility] Address: [address] [place] [address] Performed By: #### 5 7021-8 ####[facility] LABCLIA [id number] [address] LABCLIA [id number] [place] [address] PLATELET ESTIMATE Decreased Normal [facility] Comment on above: Order Comment: Speci men Type: BLOOD SPECIMENOrdering Facility: [facility] Address: [address] [place] [address] Performed By: #### 5 7021-8 ####[facility] LABCLIA [id number] [address] LABCLIA [id number] [place] [address] Platelet mean volume (Bld) [Entitic vol] Normal [facility] Comment on above: Order Comment: Speci men Type: BLOOD SPECIMENOrdering Facility: [facility] Address: [address] [place], [place] [address] Result Comment: Unab le to Report. Performed By: #### 5 7021-8 ####[facility] LABCLIA [id number] [place] [id number] [facility] LABCLIA [id number] [place] [address] Platelets (Bld) [#/Vol] 86 10*3/uL Low 150-400 [facility] Comment on above: Order Comment: Speci men Type: BLOOD SPECIMENOrdering Facility: [facility] Address: [address] [place] [address] Result Comment: Resu lts checked and verified. No clot detected Performed By: #### 5 7021-8 ####[facility] LABCLIA [id number] [address] LABCLIA [id number] [place] [address] Polychromasia LM Ql (Bld) Slight Normal [facility] Comment on above: Order Comment: Speci men Type: BLOOD SPECIMENOrdering Facility: [facility] Address: [address] [place] [address] Performed By: #### 5 7021-8 ####[facility] LABCLIA [id number] [address] LABCLIA [id number] [place] [address] RBC (Bld) [#/Vol] 2.26 10*6/uL Low 4.20-6.00 [facility] Comment on above: Order Comment: Speci men Type: BLOOD SPECIMENOrdering Facility: [facility] Address: [address] [place], [place] [address] Performed By: #### 5 7021-8 ####[facility] LABCLIA [id number] [address] LABCLIA [id number] [place] [address] RBC FRAGMENTS Few Abnormal None Seen [facility] Comment on above: Order Comment: Speci men Type: BLOOD SPECIMENOrdering Facility: [facility] Address: [address] [place], [place] [address] Performed By: #### 5 7021-8 ####[facility] LABCLIA [id number] [address] LABCLIA [id number] [place] [address] RED CELL MORPH Reviewed: see result s of individual morphologies Normal [facility] Comment on above: Order Comment: Speci men Type: BLOOD SPECIMENOrdering Facility: [facility] Address: [address] [place] [address] Performed By: #### 5 7021-8 ####[facility] LABCLIA [id number] [address] LABCLIA [id number] [place] [address] WAM - ABS BASO 0.00 k/uL Normal <0.11 [facility] Comment on above: Order Comment: Speci men Type: BLOOD SPECIMENOrdering Facility: [facility] Address: [address] [place] [address] Performed By: #### 5 7021-8 ####[facility] LABCLIA [id number] [address] LABCLIA [id number] [place] [address] WAM - ABS MONO 0.39 k/uL Normal <0.87 [facility] Comment on above: Order Comment: Speci men Type: BLOOD SPECIMENOrdering Facility: [facility] Address: [address] [place], [place] [address] Performed By: #### 5 7021-8 ####[facility] LABCLIA [id number] [place] [id number] [facility] LABCLIA [id number] [place] [address] WAM - MONO% 19.0 % Normal [facility] Comment on above: Order Comment: Speci men Type: BLOOD SPECIMENOrdering Facility: [facility] Address: [address] [place] [address] Performed By: #### 5 7021-8 ####[facility] LABCLIA [id number] [address] LABCLIA [id number] [place] [address] WAM ABSOLUTE NRBC <0.01 Normal <0.01 [facility] Comment on above: Order Comment: Speci men Type: BLOOD SPECIMENOrdering Facility: [facility] Address: [address] [place] [address] Performed By: #### 5 7021-8 ####[facility] LABCLIA [id number] [address] LABCLIA [id number] [place] [address] WBC (Bld) [#/Vol] 2.07 10*3/uL Low 3.70-11.00 [facility] Comment on above: Order Comment: Speci men Type: BLOOD SPECIMENOrdering Facility: [facility] Address: [address] [place] [address] Result Comment: Resu lts checked and verified. No clot detected Performed By: #### 5 7021-8 ####[facility] LABCLIA [id number] [address] LABCLIA [id number] [place] [address] WBC Left Shift Ql (Bld) Present Normal [facility] Comment on above: Order Comment: Speci men Type: BLOOD SPECIMENOrdering Facility: [facility] Address: [address] [place] [address] Performed By: #### 5 7021-8 ####[facility] LABCLIA [id number] [place]ALEY [place]AM[place] [address] [facility] LABCLIA [id number] [place] [address] CNOVSPon 04-22-2022 CNOVSP Normal [facility] CNPNon 04-22-2022 CNPN Normal [facility] Comprehensive metabolic 2000 panelon 04-22-2022 Albumin [Mass/Vol] 3.9 g/dL Normal 3.9-4.9 [facility] Comment on above: Order Comment: Speci men Type: BLOOD SPECIMENOrdering Facility: [facility] Address: [address] Performed By: #### 2 4323-8, 2531-0 ####[facility] LABCLIA [id number] [place] [address] ALP [Catalytic activity/Vol] 83 U/L Normal 38-113 [facility] Comment on above: Order Comment: Speci men Type: BLOOD SPECIMENOrdering Facility: [facility] Address: [address] Performed By: #### 2 4323-8, 2531-0 ####[facility] LABCLIA [id number] [place] [address] ALT [Catalytic activity/Vol] 30 U/L Normal 10-54 [facility] Comment on above: Order Comment: Speci men Type: BLOOD SPECIMENOrdering Facility: [facility] Address: [address] [place] [id number] Performed By: #### 2 4323-8, 253-0 ####[facility] LABIA [id number] [place] [address] Anion gap [Moles/Vol] 9 mmol/L Normal 9-18 [facility] Comment on above: Order Comment: Speci men Type: BLOOD SPECIMENOrdering Facility: [facility] Address: [address] [id number] Performed By: #### 2 4323-8, 2531-0 ####[facility] LABCLIA [id number] [place] [address] AST [Catalytic activity/Vol] 15 U/L Normal 14-40 [facility] Comment on above: Order Comment: Speci men Type: BLOOD SPECIMENOrdering Facility: [facility] Address: [address] [place], [place] [address] Performed By: #### 2 4328, 2531-0 ####[facility] LABCLIA [id number] [place] [address] Bilirubin [Mass/Vol] 0.8 mg/dL Normal 0.2-1.3 [facility] Comment on above: Order Comment: Speci men Type: BLOOD SPECIMENOrdering Facility: [facility] Address: [address] [place] [address] Performed By: #### 2 4328, 0 ####[facility] LABCLIA [id number] [place] [address] Calcium [Mass/Vol] 9.1 mg/dL Normal 8.5-10.2 [facility] Comment on above: Order Comment: Speci men Type: BLOOD SPECIMENOrdering Facility: [facility] Address: [address] [place], [place] [address] Performed By: #### 2 4328, 0 ####[facility] LABCLIA [id number] [place] [address] Chloride [Moles/Vol] 108 mmol/L High 97-105 [facility] Comment on above: Order Comment: Speci men Type: BLOOD SPECIMENOrdering Facility: [facility] Address: [address] [place], [place] [address] Performed By: #### 2 43238, 2531-0 ####[facility] LABCLIA [id number] [place] [address] CO2 [Moles/Vol] 28 mmol/L Normal 22-30 [facility] Comment on above: Order Comment: Speci men Type: BLOOD SPECIMENOrdering Facility: [facility] Address: [address] [place] [address] Performed By: #### 2 4323-8, 2-0 ####[facility] LABCLIA [id number] [place] [address] Creatinine [Mass/Vol] 1.76 mg/dL High 0.73-1.22 [facility] Comment on above: Order Comment: Speci men Type: BLOOD SPECIMENOrdering Facility: [facility] Address: [address] [place] [address] Performed By: #### 2 4323-8, 2531-0 ####[facility] LABCLIA [id number] [place] [address] ESTIMATED GLOMERULAR FILTRATION RATE 38 mL/min/1.73m??? Low >=60 [facility] Comment on above: Order Comment: Speci men Type: BLOOD SPECIMENOrdering Facility: [facility] Address: [address] [place] [address] Result Comment: Faye mated Glomerular Filtration Rate (eGFR) is calculated using the 2020 CKD-EPI creatinine equation. This equation utilizes serum creatinine, sex, and age as parameters. The creatinine assay has traceable calibration to isotope dilution-mass spectrometry. Refer to KDIGO guidelines for clinical interpretation. In patients with unstable renal function, e.g. those with acute kidney injury, the eGFR may not accurately reflect actual GFR. Performed By: #### 2 4323-8, 2531-0 ####[facility] LABCLIA [id number] [place] [address] Glucose [Mass/Vol] 170 mg/dL High 74-99 [facility] Comment on above: Order Comment: Speci men Type: BLOOD SPECIMENOrdering Facility: [facility] Address: [address] [place] [address] Result Comment: The [place] [employer] (ADA) provides guidance for cutoff values for fasting glucose and random glucose. The ADA defines fasting as no caloric intake for at least 8 hours. Fasting plasma glucose results between 100 to 125 mg/dL indicate increased risk for diabetes (prediabetes).Fasting plasma glucose results greater than or equal to 126 mg/dL meet the criteria for diagnosis of diabetes. In the absence of unequivocal hyperglycemia, results should be confirmed by repeat testing. In a patient with classic symptoms of hyperglycemia or hyperglycemic crisis, random plasma glucose results greater than or equal to 200 mg/dL meet the criteria for diagnosis of diabetes.Reference: Standards of Medical Care in Diabetes 2016, [employer] [place] [employer]. Diabetes Care. 2016.39(Suppl 1). Performed By: #### 2 4323-8, 0 ####[facility] LABIA [id number] [place] [address] Potassium [Moles/Vol] 4.2 mmol/L Normal 3.7-5.1 [facility] Comment on above: Order Comment: Speci men Type: BLOOD SPECIMENOrdering Facility: [facility] Address: [address] [place] [address] Performed By: #### 2 4328, 0 ####[facility] LABIA [id number] [place] [address] Protein [Mass/Vol] 6.0 g/dL Low 6.3-8.0 [facility] Comment on above: Order Comment: Speci men Type: BLOOD SPECIMENOrdering Facility: [facility] Address: [address] [place], [place] [address] Performed By: #### 2 43238, 0 ####[facility] LABIA [id number] [place] [address] Sodium [Moles/Vol] 145 mmol/L High 136-144 [facility] Comment on above: Order Comment: Speci men Type: BLOOD SPECIMENOrdering Facility: [facility] Address: [address] Performed By: #### 2 4323, 2532-0 ####[facility] LABCLIA [id number] [place] [address] Urea nitrogen [Mass/Vol] 24 mg/dL Normal 9-24 [facility] Comment on above: Order Comment: Speci men Type: BLOOD SPECIMENOrdering Facility: [facility] Address: [address] [place] [address] Performed By: #### 2 43238, 0 ####[facility] LABCLIA [id number] [place] [address] HEMOGLOBIN AND HEMATOCRITon 04-22-2022 Hematocrit (Bld) [Volume fraction] 23.1 % Critically low 42.0-54.0 [facility] Comment on above: Performed By: #### H GBHCT #### [facility] [address] [address] [address] Benito To Hemoglobin (Bld) [Mass/Vol] 7.2 g/dL Critically low 14.0-18.0 [facility] Comment on above: Performed By: #### H GBHCT #### [facility] [address] [address] [address] Benito To LDH SerPl-cCncon 04-22-2022 LDH [Catalytic activity/Vol] 220 U/L Normal 135-225 [facility] Comment on above: Order Comment: Speci men Type: BLOOD SPECIMENOrdering Facility: [facility] Address: [address] [place] [address] Performed By: #### 2 43238, 0 ####[facility] LABCLIA [id number] [place] [address] TYPE AND SCREENon 04-22-2022 TYPE AND SCREEN Negative Normal [facility] Comment on above: Performed By: #### H H #### [facility] [address] [address] [address] Benito To CNOVSPon 04-18-2022 CNOVSP Normal [facility] CBC W Auto Differential pane l (Bld)on 04-15-2022 Basophils (Bld) [#/Vol] 0.03 10*3/uL Normal <0.11 [facility] Comment on above: Order Comment: Speci men Type: BLOOD SPECIMENOrdering Facility: [facility] Address: [address] [place] [address] Performed By: #### 5 7021-8 ####[facility] LABCLIA [id number] [place] [address] Basophils/100 WBC (Bld) 1.4 % Normal [facility] Comment on above: Order Comment: Speci men Type: BLOOD SPECIMENOrdering Facility: [facility] Address: [address] [place] [address] Performed By: #### 5 7021-8 ####[facility] LABCLIA [id number] [place] [address] Differential cell count method Nom (Bld) Auto Normal [facility] Comment on above: Order Comment: Speci men Type: BLOOD SPECIMENOrdering Facility: [facility] Address: [address] [place] [address] Performed By: #### 5 7021-8 ####[facility] LABCLIA [id number] [place] [address] Eosinophils (Bld) [#/Vol] 10*3/uL Normal <0.46 [facility] Comment on above: Order Comment: Speci men Type: BLOOD SPECIMENOrdering Facility: [facility] Address: [address] [place] [address] Performed By: #### 5 7021-8 ####[facility] LABCLIA [id number] [place] [address] Eosinophils/100 WBC (Bld) 0.5 % Normal [facility] Comment on above: Order Comment: Speci men Type: BLOOD SPECIMENOrdering Facility: [facility] Address: [address] [place] [address] Performed By: #### 5 7021-8 ####[facility] LABCLIA [id number] [place] [address] Erythrocyte distribution width (RBC) [Ratio] 26.0 % High 11.5-15.0 [facility] Comment on above: Order Comment: Speci men Type: BLOOD SPECIMENOrdering Facility: [facility] Address: [address] [place] [address] Performed By: #### 5 7021-8 ####[facility] LABCLIA [id number] [place] [address] Hematocrit (Bld) [Volume fraction] 24.9 % Low 39.0-51.0 [facility] Comment on above: Order Comment: Speci men Type: BLOOD SPECIMENOrdering Facility: [facility] Address: [address] [place] [address] Performed By: #### 5 7021-8 ####[facility] LABIA [id number] [place] [address] Hemoglobin (Bld) [Mass/Vol] 7.9 g/dL Low 13.0-17.0 [facility] Comment on above: Order Comment: Speci men Type: BLOOD SPECIMENOrdering Facility: [facility] Address: [address] [place] [address] Performed By: #### 5 7021-8 ####[facility] LABIA [id number] [place] [address] IMMATURE GRAN % 6.5 % Normal [facility] Comment on above: Order Comment: Speci men Type: BLOOD SPECIMENOrdering Facility: [facility] Address: [address] [place] [address] Performed By: #### 5 7021-8 ####[facility] LABIA [id number] [place] [address] IMMATURE GRAN ABS 0.14 k/uL High <0.10 [facility] Comment on above: Order Comment: Speci men Type: BLOOD SPECIMENOrdering Facility: [facility] Address: [address] [place] [address] Performed By: #### 5 7021-8 ####[facility] LABCLIA [id number] [place] [address] Lymphocytes (Bld) [#/Vol] 0.80 10*3/uL Low 1.00-4.00 [facility] Comment on above: Order Comment: Speci men Type: BLOOD SPECIMENOrdering Facility: [facility] Address: [address] [place] [address] Performed By: #### 5 7021-8 ####[facility] LABCLIA [id number] [place] [address] Lymphocytes/100 WBC (Bld) 37.0 % Normal [facility] Comment on above: Order Comment: Speci men Type: BLOOD SPECIMENOrdering Facility: [facility] Address: [address] [place] [address] Performed By: #### 5 7021-8 ####[facility] LABCLIA [id number] [place] [address] MCH (RBC) [Entitic mass] 33.5 pg Normal 26.0-34.0 [facility] Comment on above: Order Comment: Speci men Type: BLOOD SPECIMENOrdering Facility: [facility] Address: [address] [place] [address] Performed By: #### 5 7021-8 ####[facility] LABCLIA [id number] [place] [address] MCHC (RBC) [Mass/Vol] 31.7 g/dL Normal 30.5-36.0 [facility] Comment on above: Order Comment: Speci men Type: BLOOD SPECIMENOrdering Facility: [facility] Address: [address] [place] [address] Performed By: #### 5 7021-8 ####[facility] LABCLIA [id number] [place] [address] MCV (RBC) [Entitic vol] 105.5 fL High 80.0-100.0 [facility] Comment on above: Order Comment: Speci men Type: BLOOD SPECIMENOrdering Facility: [facility] Address: [address] [place] [address] Performed By: #### 5 7021-8 ####[facility] LABCLIA [id number] [place] [address] Monocytes (Bld) [#/Vol] 0.28 10*3/uL Normal <0.87 [facility] Comment on above: Order Comment: Speci men Type: BLOOD SPECIMENOrdering Facility: [facility] Address: [address] [place] [address] Performed By: #### 5 7021-8 ####[facility] LABCLIA [id number] [place] [address] Monocytes/100 WBC (Bld) 13.0 % Normal [facility] Comment on above: Order Comment: Speci men Type: BLOOD SPECIMENOrdering Facility: [facility] Address: [address] [place] [address] Performed By: #### 5 7021-8 ####[facility] LABCLIA [id number] [place] [address] Neutrophils (Bld) [#/Vol] 0.90 10*3/uL Low 1.45-7.50 [facility] Comment on above: Order Comment: Speci men Type: BLOOD SPECIMENOrdering Facility: [facility] Address: [address] [place] [address] Performed By: #### 5 7021-8 ####[facility] LABCLIA [id number] [place] [address] Neutrophils/100 WBC (Bld) 41.6 % Normal [facility] Comment on above: Order Comment: Speci men Type: BLOOD SPECIMENOrdering Facility: [facility] Address: [address] [place] [address] Performed By: #### 5 7021-8 ####[facility] LABCLIA [id number] [place] [address] Nucleated RBC (Bld) [#/Vol] 0.02 10*3/uL High <0.01 [facility] Comment on above: Order Comment: Speci men Type: BLOOD SPECIMENOrdering Facility: [facility] Address: [address] [place] [address] Performed By: #### 5 7021-8 ####[facility] LABCLIA [id number] [place] [address] Nucleated RBC/100 WBC (Bld) [Ratio] 0.9 /100 WBC Normal [facility] Comment on above: Order Comment: Speci men Type: BLOOD SPECIMENOrdering Facility: [facility] Address: [address] [place] [address] Performed By: #### 5 7021-8 ####[facility] LABIA [id number] [place] [address] Platelet mean volume (Bld) [Entitic vol] 13.7 fL High 9.0-12.7 [facility] Comment on above: Order Comment: Speci men Type: BLOOD SPECIMENOrdering Facility: [facility] Address: [address] [place] [address] Performed By: #### 5 7021-8 ####[facility] LABCLIA [id number] [place] [address] Platelets (Bld) [#/Vol] 132 10*3/uL Low 150-400 [facility] Comment on above: Order Comment: Speci men Type: BLOOD SPECIMENOrdering Facility: [facility] Address: [address] [place] [address] Result Comment: Resu lts checked and verified. No clot detected. Sample checked for clot Performed By: #### 5 7021-8 ####[facility] LABCLIA [id number] [place] [address] RBC (Bld) [#/Vol] 2.36 10*6/uL Low 4.20-6.00 [facility] Comment on above: Order Comment: Speci men Type: BLOOD SPECIMENOrdering Facility: [facility] Address: [address] [place] [address] Performed By: #### 5 7021-8 ####[facility] LABCLIA [id number] [place] [address] WBC (Bld) [#/Vol] 2.16 10*3/uL Low 3.70-11.00 [facility] Comment on above: Order Comment: Speci men Type: BLOOD SPECIMENOrdering Facility: [facility] Address: [address] [place] [address] Performed By: #### 5 7021-8 ####[facility] LABCLIA [id number] [place] [address] CNPNon 04-15-2022 CNPN Normal [facility] Comprehensive metabolic 2000 panelon 04-15-2022 Albumin [Mass/Vol] 4.0 g/dL Normal 3.9-4.9 [facility] Comment on above: Order Comment: Speci men Type: BLOOD SPECIMENOrdering Facility: [facility] Address: [address] [place] [address] Performed By: #### 2 532-0, 26409-3 ####[facility] LABCLIA [id number] [place] [address] ALP [Catalytic activity/Vol] 76 U/L Normal 38-113 [facility] Comment on above: Order Comment: Speci men Type: BLOOD SPECIMENOrdering Facility: [facility] Address: [address] [place] [address] Performed By: #### 2 532-0, 02919-4 ####[facility] LABCLIA [id number] [place] [address] ALT [Catalytic activity/Vol] 28 U/L Normal 10-54 [facility] Comment on above: Order Comment: Speci men Type: BLOOD SPECIMENOrdering Facility: [facility] Address: [address] [place] [address] Performed By: #### 2 532-0, 70647-9 ####[facility] LABCLIA [id number] [place] [address] Anion gap [Moles/Vol] 10 mmol/L Normal 9-18 [facility] Comment on above: Order Comment: Speci men Type: BLOOD SPECIMENOrdering Facility: [facility] Address: [address] [place] [address] Performed By: #### 2 532-0, 19783-3 ####[facility] LABIA [id number] [place] [address] AST [Catalytic activity/Vol] 15 U/L Normal 14-40 [facility] Comment on above: Order Comment: Speci men Type: BLOOD SPECIMENOrdering Facility: [facility] Address: [address] [place] [address] Performed By: #### 2 532-0, ####[facility] LABCLIA [id number] [place] [address] Bilirubin [Mass/Vol] 0.6 mg/dL Normal 0.2-1.3 [facility] Comment on above: Order Comment: Speci men Type: BLOOD SPECIMENOrdering Facility: [facility] Address: [address] [place] [address] Performed By: #### 2 532-0, ####[facility] LABIA [id number] [place] [address] Calcium [Mass/Vol] 8.9 mg/dL Normal 8.5-10.2 [facility] Comment on above: Order Comment: Speci men Type: BLOOD SPECIMENOrdering Facility: [facility] Address: [address] [place], [place] [address] Performed By: #### 2 532-0, 59383-7 ####[facility] LABCLIA [id number] [place] [address] Chloride [Moles/Vol] 107 mmol/L High 97-105 [facility] Comment on above: Order Comment: Speci men Type: BLOOD SPECIMENOrdering Facility: [facility] Address: [address] [place] [address] Performed By: #### 2 532-0, 71253-9 ####[facility] LABCLIA [id number] [place] [address] CO2 [Moles/Vol] 28 mmol/L Normal 22-30 [facility] Comment on above: Order Comment: Speci men Type: BLOOD SPECIMENOrdering Facility: [facility] Address: [address] [place] [address] Performed By: #### 2 532-0, 87323-8 ####[facility] LABCLIA [id number] [place] [address] Creatinine [Mass/Vol] 1.76 mg/dL High 0.73-1.22 [facility] Comment on above: Order Comment: Speci men Type: BLOOD SPECIMENOrdering Facility: [facility] Address: [address] [place] [address] Performed By: #### 2 532-0, 74288-1 ####[facility] LABCLIA [id number] [place] [address] ESTIMATED GLOMERULAR FILTRATION RATE 38 mL/min/1.73m??? Low >=60 [facility] Comment on above: Order Comment: Speci men Type: BLOOD SPECIMENOrdering Facility: [facility] Address: [address] [place] [address] Result Comment: Faye mated Glomerular Filtration Rate (eGFR) is calculated using the 2020 CKD-EPI creatinine equation. This equation utilizes serum creatinine, sex, and age as parameters. The creatinine assay has traceable calibration to isotope dilution-mass spectrometry. Refer to KDIGO guidelines for clinical interpretation. In patients with unstable renal function, e.g. those with acute kidney injury, the eGFR may not accurately reflect actual GFR. Performed By: #### 2 532-0, ####[facility] LABCLIA [id number] [place] [address] Glucose [Mass/Vol] 223 mg/dL High 74-99 [facility] Comment on above: Order Comment: Speci kateryna Type: BLOOD SPECIMENOrdering Facility: [facility] Address: [address] [id number] Result Comment: The [place] Diabetes [employer] (ADA) provides guidance for cutoff values for fasting glucose and random glucose. The ADA defines fasting as no caloric intake for at least 8 hours. Fasting plasma glucose results between 100 to 125 mg/dL indicate increased risk for diabetes (prediabetes).Fasting plasma glucose results greater than or equal to 126 mg/dL meet the criteria for diagnosis of diabetes. In the absence of unequivocal hyperglycemia, results should be confirmed by repeat testing. In a patient with classic symptoms of hyperglycemia or hyperglycemic crisis, random plasma glucose results greater than or equal to 200 mg/dL meet the criteria for diagnosis of diabetes.Reference: Standards of Medical Care in Diabetes 2016, [employer] [place] [employer]. Diabetes Care. 2016.39(Suppl 1). Performed By: #### 2 532-0, ####[facility] LABCLIA [id number] [place] [address] Potassium [Moles/Vol] 3.9 mmol/L Normal 3.7-5.1 [facility] Comment on above: Order Comment: Davi avendaño Type: BLOOD SPECIMENOrdering Facility: [facility] Address: [address] [place] [address] Performed By: #### 2 532-0, 68452-8 ####[facility] LABCLIA [id number] [place] [address] Protein [Mass/Vol] 6.0 g/dL Low 6.3-8.0 [facility] Comment on above: Order Comment: Speci men Type: BLOOD SPECIMENOrdering Facility: [facility] Address: [address] [place] [address] Performed By: #### 2 532-0, 45062-0 ####[facility] LABCLIA [id number] [place] [address] Sodium [Moles/Vol] 145 mmol/L High 136-144 [facility] Comment on above: Order Comment: Speci men Type: BLOOD SPECIMENOrdering Facility: [facility] Address: [address] [place] [address] Performed By: #### 2 532-0, 28449-9 ####[facility] LABIA [id number] [place] [address] Urea nitrogen [Mass/Vol] 26 mg/dL High 9-24 [facility] Comment on above: Order Comment: Speci men Type: BLOOD SPECIMENOrdering Facility: [facility] Address: [address] [place] [address] Performed By: #### 2 532-0, 85744-6 ####[facility] LABIA [id number] [place] [address] LDH SerPl-cCncon 04-15-2022 LDH [Catalytic activity/Vol] 227 U/L High 135-225 [facility] Comment on above: Order Comment: Speci men Type: BLOOD SPECIMENOrdering Facility: [facility] Address: [address] [place] [address] Performed By: #### 2 532-0, 54280-6 ####[facility] LABIA [id number] [place] [address] CBC W Auto Differential pane l (Bld)on 04-08-2022 Anisocytosis Ql (Bld) Present Normal [facility] Comment on above: Order Comment: Speci men Type: BLOOD SPECIMENOrdering Facility: [facility] Address: [address] [phone] Performed By: #### 5 7021-8 ####[facility] LABCLIA [id number] [address] LABCLIA [id number] [facility] [address] [place] Basophils/100 WBC (Bld) 2.7 % Normal [facility] Comment on above: Order Comment: Speci men Type: BLOOD SPECIMENOrdering Facility: [facility] Address: [address] [place], [place] [address] Performed By: #### 5 7021-8 ####[facility] LABCLIA [id number] [address] LABCLIA [id number] [place] [address] [place] Differential cell count method Nom (Bld) Manual Normal [facility] Comment on above: Order Comment: Speci men Type: BLOOD SPECIMENOrdering Facility: [facility] Address: [address] [place], [place] [address] Performed By: #### 5 7021-8 ####[facility] LABCLIA [id number] [address] LABCLIA [id number] [place] [address] [place] Eosinophils (Bld) [#/Vol] 0.01 10*3/uL Normal <0.46 [facility] Comment on above: Order Comment: Speci men Type: BLOOD SPECIMENOrdering Facility: [facility] Address: [address] [place] [address] Performed By: #### 5 7021-8 ####[facility] LABCLIA [id number] [address] LABCLIA [id number] [place] [address] [place] Eosinophils/100 WBC (Bld) 0.5 % Normal [facility] Comment on above: Order Comment: Speci men Type: BLOOD SPECIMENOrdering Facility: [facility] Address: [address] [place], [place] [address] Performed By: #### 5 7021-8 ####[facility] LABCLIA [id number] [address] LABCLIA [id number] [place] [address] [place] Erythrocyte distribution width (RBC) [Ratio] 24.5 % High 11.5-15.0 [facility] Comment on above: Order Comment: Speci men Type: BLOOD SPECIMENOrdering Facility: [facility] Address: [address] [place], [place] [address] Performed By: #### 5 7021-8 ####[facility] LABCLIA [id number] [address] LABCLIA [id number] [place] [address] [place] Hematocrit (Bld) [Volume fraction] 25.8 % Low 39.0-51.0 [facility] Comment on above: Order Comment: Speci men Type: BLOOD SPECIMENOrdering Facility: [facility] Address: [address] [place], [place] [address] Performed By: #### 5 7021-8 ####[facility] LABCLIA [id number] [address] LABCLIA [id number] [place] [address] [place] Hemoglobin (Bld) [Mass/Vol] 8.1 g/dL Low 13.0-17.0 [facility] Comment on above: Order Comment: Speci men Type: BLOOD SPECIMENOrdering Facility: [facility] Address: [address] [place], [place] [address] Performed By: #### 5 7021-8 ####[facility] LABCLIA [id number] [address] LABCLIA [id number] [place] [address] [place] Lymphocytes (Bld) [#/Vol] 0.81 10*3/uL Low 1.00-4.00 [facility] Comment on above: Order Comment: Speci men Type: BLOOD SPECIMENOrdering Facility: [facility] Address: [address] [place], [place] [address] Performed By: #### 5 7021-8 ####[facility] LABCLIA [id number] [address] LABCLIA [id number] [place] [address] [place] Lymphocytes/100 WBC (Bld) 44.8 % Normal [facility] Comment on above: Order Comment: Speci men Type: BLOOD SPECIMENOrdering Facility: [facility] Address: [address] [place], [place] [address] Performed By: #### 5 7021-8 ####[facility] LABCLIA [id number] [address] LABCLIA [id number] [place] [address] [place] MCH (RBC) [Entitic mass] 32.5 pg Normal 26.0-34.0 [facility] Comment on above: Order Comment: Speci men Type: BLOOD SPECIMENOrdering Facility: [facility] Address: [address] [place] [address] Performed By: #### 5 7021-8 ####[facility] LABCLIA [id number] [address] LABCLIA [id number] [place] [address] [place] MCHC (RBC) [Mass/Vol] 31.4 g/dL Normal 30.5-36.0 [facility] Comment on above: Order Comment: Speci men Type: BLOOD SPECIMENOrdering Facility: [facility] Address: [address] [place] [address] Performed By: #### 5 7021-8 ####[facility] LABCLIA [id number] [address] LABCLIA [id number] [place] [address] [place] MCV (RBC) [Entitic vol] 103.6 fL High 80.0-100.0 [facility] Comment on above: Order Comment: Speci men Type: BLOOD SPECIMENOrdering Facility: [facility] Address: [address] [place] [address] Performed By: #### 5 7021-8 ####[facility] LABCLIA [id number] [address] LABCLIA [id number] [place] [address] [place] Neutrophils (Bld) [#/Vol] 0.70 10*3/uL Low 1.45-7.50 [facility] Comment on above: Order Comment: Speci men Type: BLOOD SPECIMENOrdering Facility: [facility] Address: [address] [place] [address] Performed By: #### 5 7021-8 ####[facility] LABCLIA [id number] [address] LABCLIA [id number] [place] [address] [place] Neutrophils/100 WBC (Bld) 38.8 % Normal [facility] Comment on above: Order Comment: Speci men Type: BLOOD SPECIMENOrdering Facility: [facility] Address: [address] [place], [place] [address] Performed By: #### 5 7021-8 ####[facility] LABCLIA [id number] [address] LABCLIA [id number] [place] [address] [place] Nucleated RBC/100 WBC (Bld) [Ratio] 0.0 /100 WBC Normal [facility] Comment on above: Order Comment: Speci men Type: BLOOD SPECIMENOrdering Facility: [facility] Address: [address] [place] [address] Performed By: #### 5 7021-8 ####[facility] LABCLIA [id number] [address] LABCLIA [id number] [place] [address] [place] Ovalocytes LM Ql (Bld) Few Normal [facility] Comment on above: Order Comment: Speci men Type: BLOOD SPECIMENOrdering Facility: [facility] Address: [address] [place] [address] Performed By: #### 5 7021-8 ####[facility] LABCLIA [id number] [address] LABCLIA [id number] [place] [address] [place] PLATELET ESTIMATE Decreased Normal [facility] Comment on above: Order Comment: Speci men Type: BLOOD SPECIMENOrdering Facility: [facility] Address: [address] [place] [address] Performed By: #### 5 7021-8 ####[facility] LABCLIA [id number] [address] LABCLIA [id number] [place] [address] [place] Platelet mean volume (Bld) [Entitic vol] 13.8 fL High 9.0-12.7 [facility] Comment on above: Order Comment: Speci men Type: BLOOD SPECIMENOrdering Facility: [facility] Address: [address] [place], [place] [address] Performed By: #### 5 7021-8 ####[facility] LABCLIA [id number] [address] LABCLIA [id number] [place] [address] [place] Platelets (Bld) [#/Vol] 129 10*3/uL Low 150-400 [facility] Comment on above: Order Comment: Speci men Type: BLOOD SPECIMENOrdering Facility: [facility] Address: [address] [place] [address] Result Comment: Samp le checked for clot Performed By: #### 5 7021-8 ####[facility] LABCLIA [id number] [address] LABCLIA [id number] [place] [address] [place] Polychromasia LM Ql (Bld) Slight Normal [facility] Comment on above: Order Comment: Speci men Type: BLOOD SPECIMENOrdering Facility: [facility] Address: [address] [place], [place] [address] Performed By: #### 5 7021-8 ####[facility] LABCLIA [id number] [address] LABCLIA [id number] [place] [address] [place] RBC (Bld) [#/Vol] 2.49 10*6/uL Low 4.20-6.00 [facility] Comment on above: Order Comment: Speci men Type: BLOOD SPECIMENOrdering Facility: [facility] Address: [address] [place], [place] [address] Performed By: #### 5 7021-8 ####[facility] LABCLIA [id number] [address] LABCLIA [id number] [place] [address] [place] RBC FRAGMENTS Few Abnormal None Seen [facility] Comment on above: Order Comment: Speci men Type: BLOOD SPECIMENOrdering Facility: [facility] Address: [address] [place] [address] Performed By: #### 5 7021-8 ####[facility] LABCLIA [id number] [address] LABCLIA [id number] [place] [address] [place] RED CELL MORPH Reviewed: see result s of individual morphologies Normal [facility] Comment on above: Order Comment: Speci men Type: BLOOD SPECIMENOrdering Facility: [facility] Address: [address] [place] [address] Performed By: #### 5 7021-8 ####[facility] LABCLIA [id number] [address] LABCLIA [id number] [place] [address] [place] Variant lymphocytes/100 WBC (Bld) 0.0 % Normal [facility] Comment on above: Order Comment: Speci men Type: BLOOD SPECIMENOrdering Facility: [facility] Address: [address] [place] [address] Performed By: #### 5 7021-8 ####[facility] LABCLIA [id number] [address] LABCLIA [id number] [place] [address] [place] WAM - ABS BASO 0.05 k/uL Normal <0.11 [facility] Comment on above: Order Comment: Speci men Type: BLOOD SPECIMENOrdering Facility: [facility] Address: [address] [place] [address] Performed By: #### 5 7021-8 ####[facility] LABCLIA [id number] [address] LABCLIA [id number] [place] [address] [place] WAM - ABS MONO 0.24 k/uL Normal <0.87 [facility] Comment on above: Order Comment: Speci men Type: BLOOD SPECIMENOrdering Facility: [facility] Address: [address] [place] [address] Performed By: #### 5 7021-8 ####[facility] LABCLIA [id number] [address] LABCLIA [id number] [address] [place] WAM - MONO% 13.2 % Normal [facility] Comment on above: Order Comment: Speci men Type: BLOOD SPECIMENOrdering Facility: [facility] Address: [address] [place] [address] Performed By: #### 5 7021-8 ####[facility] LABCLIA [id number] [address] LABCLIA [id number] [address] [place] WAM ABSOLUTE NRBC <0.01 Normal <0.01 [facility] Comment on above: Order Comment: Speci men Type: BLOOD SPECIMENOrdering Facility: [facility] Address: [address] [place] [address] Result Comment: This result was previously suppressed from the chart. Performed By: #### 5 7021-8 ####[facility] LABCLIA [id number] [address] LABCLIA [id number] [place] [address] [place] WBC (Bld) [#/Vol] 1.81 10*3/uL Low 3.70-11.00 [facility] Comment on above: Order Comment: Speci men Type: BLOOD SPECIMENOrdering Facility: [facility] Address: [address] [place] [address] Result Comment: [facility] Performed By: #### 5 7021-8 ####[facility] LABCLIA [id number] [address] [address] LABCLIA [id number] [place] [address] [place] CNOVSPon 04-08-2022 CNOVSP Normal [facility] Comprehensive metabolic 2000 panelon 04-08-2022 Albumin [Mass/Vol] 3.9 g/dL Normal 3.9-4.9 [facility] Comment on above: Order Comment: Speci men Type: BLOOD SPECIMENOrdering Facility: [facility] Address: [address] [place] [address] Performed By: #### 2 532-0, 49298-7 ####[facility] LABCLIA [id number] [place] [address] ALP [Catalytic activity/Vol] 77 U/L Normal 38-113 [facility] Comment on above: Order Comment: Speci men Type: BLOOD SPECIMENOrdering Facility: [facility] Address: [address] Performed By: #### 2 532-0, 41919-7 ####[facility] LABCLIA [id number] [place] [address] ALT [Catalytic activity/Vol] 24 U/L Normal 10-54 [facility] Comment on above: Order Comment: Speci men Type: BLOOD SPECIMENOrdering Facility: [facility] Address: [address] [place], [place] [address] Performed By: #### 2 532-0, ####[facility] LABCLIA [id number] [place] [address] Anion gap [Moles/Vol] 7 mmol/L Low 9-18 [facility] Comment on above: Order Comment: Speci men Type: BLOOD SPECIMENOrdering Facility: [facility] Address: [address] [place] [address] Performed By: #### 2 532-0, ####[facility] LABCLIA [id number] [place] [address] AST [Catalytic activity/Vol] 12 U/L Low 14-40 [facility] Comment on above: Order Comment: Speci men Type: BLOOD SPECIMENOrdering Facility: [facility] Address: [address] [place] [address] Performed By: #### 2 532-0, ####[facility] LABIA [id number] [place] [address] Bilirubin [Mass/Vol] 0.7 mg/dL Normal 0.2-1.3 [facility] Comment on above: Order Comment: Speci men Type: BLOOD SPECIMENOrdering Facility: [facility] Address: [address] [place] [address] Performed By: #### 2 532-0, ####[facility] LABCLIA [id number] [place] [address] Calcium [Mass/Vol] 8.9 mg/dL Normal 8.5-10.2 [facility] Comment on above: Order Comment: Speci men Type: BLOOD SPECIMENOrdering Facility: [facility] Address: [address] [place] [address] Performed By: #### 2 532-0, ####[facility] LABCLIA [id number] [place] [address] Chloride [Moles/Vol] 106 mmol/L High 97-105 [facility] Comment on above: Order Comment: Speci men Type: BLOOD SPECIMENOrdering Facility: [facility] Address: [address] [place] [address] Performed By: #### 2 532-0, 15572-5 ####[facility] LABCLIA [id number] [place] [address] CO2 [Moles/Vol] 29 mmol/L Normal 22-30 [facility] Comment on above: Order Comment: Speci men Type: BLOOD SPECIMENOrdering Facility: [facility] Address: [address] [place] [address] Performed By: #### 2 532-0, ####[facility] LABCLIA [id number] [place] [address] Creatinine [Mass/Vol] 1.84 mg/dL High 0.73-1.22 [facility] Comment on above: Order Comment: Speci men Type: BLOOD SPECIMENOrdering Facility: [facility] Address: [address] [place] [address] Performed By: #### 2 532-0, ####[facility] LABCLIA [id number] [place] [address] ESTIMATED GLOMERULAR FILTRATION RATE 36 mL/min/1.73m??? Low >=60 [facility] Comment on above: Order Comment: Speci men Type: BLOOD SPECIMENOrdering Facility: [facility] Address: [address] [place] [address] Result Comment: Faye mated Glomerular Filtration Rate (eGFR) is calculated using the 2020 CKD-EPI creatinine equation. This equation utilizes serum creatinine, sex, and age as parameters. The creatinine assay has traceable calibration to isotope dilution-mass spectrometry. Refer to KDIGO guidelines for clinical interpretation. In patients with unstable renal function, e.g. those with acute kidney injury, the eGFR may not accurately reflect actual GFR. Performed By: #### 2 532-0, 55503-4 ####[facility] LABCLIA [id number] [place] [address] Glucose [Mass/Vol] 221 mg/dL High 74-99 [facility] Comment on above: Order Comment: Speci men Type: BLOOD SPECIMENOrdering Facility: [facility] Address: [address] [place] [address] Result Comment: The [place] [employer] (ADA) provides guidance for cutoff values for fasting glucose and random glucose. The ADA defines fasting as no caloric intake for at least 8 hours. Fasting plasma glucose results between 100 to 125 mg/dL indicate increased risk for diabetes (prediabetes).Fasting plasma glucose results greater than or equal to 126 mg/dL meet the criteria for diagnosis of diabetes. In the absence of unequivocal hyperglycemia, results should be confirmed by repeat testing. In a patient with classic symptoms of hyperglycemia or hyperglycemic crisis, random plasma glucose results greater than or equal to 200 mg/dL meet the criteria for diagnosis of diabetes.Reference: Standards of Medical Care in Diabetes 2016, [place] [employer]. Diabetes Care. 2016.39(Suppl 1). Performed By: #### 2 532-0, ####[facility] LABCLIA [id number] [place] [address] Potassium [Moles/Vol] 4.2 mmol/L Normal 3.7-5.1 [facility] Comment on above: Order Comment: Speci men Type: BLOOD SPECIMENOrdering Facility: [facility] Address: [address] [place], [place] [address] Performed By: #### 2 532-0, ####[facility] LABCLIA [id number] [place] [address] Protein [Mass/Vol] 5.9 g/dL Low 6.3-8.0 [facility] Comment on above: Order Comment: Speci men Type: BLOOD SPECIMENOrdering Facility: [facility] Address: [address] [place], [place] [address] Performed By: #### 2 532-0, ####[facility] LABCLIA [id number] [place] [address] Sodium [Moles/Vol] 142 mmol/L Normal 136-144 [facility] Comment on above: Order Comment: Speci men Type: BLOOD SPECIMENOrdering Facility: [facility] Address: [address] [place] [address] Performed By: #### 2 532-0, 17434-7 ####[facility] LABIA [id number] [place] [address] Urea nitrogen [Mass/Vol] 24 mg/dL Normal 9-24 [facility] Comment on above: Order Comment: Speci men Type: BLOOD SPECIMENOrdering Facility: [facility] Address: [address] [place] [address] Performed By: #### 2 532-0, 76164-4 ####[facility] LABIA [id number] [place] [id number] LDH SerPl-cCncon 04-08-2022 LDH [Catalytic activity/Vol] 209 U/L Normal 135-225 [facility] [facility] Comment on above: Order Comment: Speci men Type: BLOOD SPECIMENOrdering Facility: [facility] Address: [address] [place] [address] Performed By: #### 2 532-0, 82248-6 ####[facility] LABIA [id number] [place] [address] PRBC LEUKOREDUCEDon 04-07-20 22 ABO and Rh group Nom (Bld) Cross Match Result Compatible Unit Blood Type A Pos Unit Number [id number] Status Information Transfused Product ID Red Blood Cells Product Code [id number] Cross Match Result Compatible Unit Blood Type A Pos Unit Number [id number] Status Information Transfused Product ID Red Blood Cells Product Code [id number] Normal [facility] Comment on above: Performed By: #### H H #### [facility] [address] [place] [address] Dr. Benito Solis 04-03-2022 CNPN Normal [facility] HEMOGLOBIN AND HEMATOCRITon 04-03-2022 Hematocrit (Bld) [Volume fraction] 21.8 % Critically low 42.0-54.0 [facility] Comment on above: Performed By: #### H GBHCT #### [facility] [address] [place] [address] Dr. Benito To Hemoglobin (Bld) [Mass/Vol] 6.9 g/dL Critically low 14.0-18.0 [facility] Comment on above: Performed By: #### H GBHCT #### [facility] [address] [address] [address] Benito To TYPE AND SCREENon 04-03-2022 TYPE AND SCREEN Negative Normal [facility] Comment on above: Performed By: #### H H #### [facility] [address] [place] [address] Dr. Benito To CBC W Auto Differential pane l (Bld)on 04-02-2022 Basophils (Bld) [#/Vol] 10*3/uL Normal <0.11 [facility] Comment on above: Order Comment: Speci men Type: BLOOD SPECIMENOrdering Facility: [facility] Address: [address] [place] [address] Performed By: #### 5 7021-8 ####[facility] LABCLIA [id number] [place] [address] Basophils/100 WBC (Bld) 0.8 % Normal [facility] Comment on above: Order Comment: Speci men Type: BLOOD SPECIMENOrdering Facility: [facility] Address: [address] [address] Performed By: #### 5 7021-8 ####[facility] LABCLIA [id number] [place] [address] Differential cell count method Nom (Bld) Auto Normal [facility] Comment on above: Order Comment: Speci men Type: BLOOD SPECIMENOrdering Facility: [facility] Address: [address] [address] Performed By: #### 5 7021-8 ####[facility] LABCLIA [id number] [place] [address] Eosinophils (Bld) [#/Vol] 10*3/uL Normal <0.46 [facility] Comment on above: Order Comment: Speci men Type: BLOOD SPECIMENOrdering Facility: [facility] Address: [address] [place] [address] Performed By: #### 5 7021-8 ####[facility] LABCLIA [id number] [place] [address] Eosinophils/100 WBC (Bld) 0.4 % Normal [facility] Comment on above: Order Comment: Speci men Type: BLOOD SPECIMENOrdering Facility: [facility] Address: [address] [place] [address] Performed By: #### 5 7021-8 ####[facility] LABCLIA [id number] [place] [address] Erythrocyte distribution width (RBC) [Ratio] 25.1 % High 11.5-15.0 [facility] Comment on above: Order Comment: Speci men Type: BLOOD SPECIMENOrdering Facility: [facility] Address: [address] [place] [address] Performed By: #### 5 7021-8 ####[facility] LABCLIA [id number] [place] [address] Hematocrit (Bld) [Volume fraction] 22.4 % Low 39.0-51.0 [facility] Comment on above: Order Comment: Speci men Type: BLOOD SPECIMENOrdering Facility: [facility] Address: [address] [place] [address] Performed By: #### 5 7021-8 ####[facility] LABCLIA [id number] [place] [address] Hemoglobin (Bld) [Mass/Vol] 7.0 g/dL Low 13.0-17.0 [facility] Comment on above: Order Comment: Speci men Type: BLOOD SPECIMENOrdering Facility: [facility] Address: [address] [place] [address] Performed By: #### 5 7021-8 ####[facility] LABCLIA [id number] [place] [address] IMMATURE GRAN % 1.2 % Normal [facility] Comment on above: Order Comment: Speci men Type: BLOOD SPECIMENOrdering Facility: [facility] Address: [address] [place] [address] Performed By: #### 5 7021-8 ####[facility] LABCLIA [id number] [place] [address] IMMATURE GRAN ABS 0.03 k/uL Normal <0.10 [facility] Comment on above: Order Comment: Speci men Type: BLOOD SPECIMENOrdering Facility: [facility] Address: [address] [place] [address] Performed By: #### 5 7021-8 ####[facility] LABCLIA [id number] [place] [address] Lymphocytes (Bld) [#/Vol] 0.78 10*3/uL Low 1.00-4.00 [facility] Comment on above: Order Comment: Speci men Type: BLOOD SPECIMENOrdering Facility: [facility] Address: [address] [place] [address] Performed By: #### 5 7021-8 ####[facility] LABCLIA [id number] [place] [address] Lymphocytes/100 WBC (Bld) 31.6 % Normal [facility] Comment on above: Order Comment: Speci men Type: BLOOD SPECIMENOrdering Facility: [facility] Address: [address] [place] [address] Performed By: #### 5 7021-8 ####[facility] LABCLIA [id number] [place] [address] MCH (RBC) [Entitic mass] 32.7 pg Normal 26.0-34.0 [facility] Comment on above: Order Comment: Speci men Type: BLOOD SPECIMENOrdering Facility: [facility] Address: [address] [place] [address] Performed By: #### 5 7021-8 ####[facility] LABCLIA [id number] [place] [address] MCHC (RBC) [Mass/Vol] 31.3 g/dL Normal 30.5-36.0 [facility] Comment on above: Order Comment: Speci men Type: BLOOD SPECIMENOrdering Facility: [facility] Address: [address] [place] [address] Performed By: #### 5 7021-8 ####[facility] LABIA [id number] [place] [address] MCV (RBC) [Entitic vol] 104.7 fL High 80.0-100.0 [facility] Comment on above: Order Comment: Speci men Type: BLOOD SPECIMENOrdering Facility: [facility] Address: [address] [place] [address] Performed By: #### 5 7021-8 ####[facility] LABIA [id number] [place] [address] Monocytes (Bld) [#/Vol] 0.51 10*3/uL Normal <0.87 [facility] Comment on above: Order Comment: Speci men Type: BLOOD SPECIMENOrdering Facility: [facility] Address: [address] [place] [address] Performed By: #### 5 7021-8 ####[facility] LABIA [id number] [place] [address] Monocytes/100 WBC (Bld) 20.6 % Normal [facility] Comment on above: Order Comment: Speci men Type: BLOOD SPECIMENOrdering Facility: [facility] Address: [address] [place] [address] Performed By: #### 5 7021-8 ####[facility] LABCLIA [id number] [place] [address] Neutrophils (Bld) [#/Vol] 1.12 10*3/uL Low 1.45-7.50 [facility] Comment on above: Order Comment: Speci men Type: BLOOD SPECIMENOrdering Facility: [facility] Address: [address] [place] [address] Performed By: #### 5 7021-8 ####[facility] LABCLIA [id number] [place] [address] Neutrophils/100 WBC (Bld) 45.4 % Normal [facility] Comment on above: Order Comment: Speci men Type: BLOOD SPECIMENOrdering Facility: [facility] Address: [address] [place] [address] Performed By: #### 5 7021-8 ####[facility] LABCLIA [id number] [place] [address] Nucleated RBC (Bld) [#/Vol] 10*3/uL Normal <0.01 [facility] Comment on above: Order Comment: Speci men Type: BLOOD SPECIMENOrdering Facility: [facility] Address: [address] [place] [address] Performed By: #### 5 7021-8 ####[facility] LABCLIA [id number] [place] [address] Nucleated RBC/100 WBC (Bld) [Ratio] 0.0 /100 WBC Normal [facility] Comment on above: Order Comment: Speci men Type: BLOOD SPECIMENOrdering Facility: [facility] Address: [address] [place] [address] Performed By: #### 5 7021-8 ####[facility] LABCLIA [id number] [place] [address] Platelet mean volume (Bld) [Entitic vol] 14.2 fL High 9.0-12.7 [facility] Comment on above: Order Comment: Speci men Type: BLOOD SPECIMENOrdering Facility: [facility] Address: [address] [place] [address] Performed By: #### 5 7021-8 ####[facility] LABCLIA [id number] [place] [address] Platelets (Bld) [#/Vol] 63 10*3/uL Low 150-400 [facility] Comment on above: Order Comment: Speci men Type: BLOOD SPECIMENOrdering Facility: [facility] Address: [address] [place] [address] Result Comment: Resu lts checked and verified. Sample checked for clot Performed By: #### 5 7021-8 ####[facility] LABCLIA [id number] [place] [address] RBC (Bld) [#/Vol] 2.14 10*6/uL Low 4.20-6.00 [facility] Comment on above: Order Comment: Speci men Type: BLOOD SPECIMENOrdering Facility: [facility] Address: [address] [place] [address] Performed By: #### 5 7021-8 ####[facility] LABCLIA [id number] [place] [address] WBC (Bld) [#/Vol] 2.47 10*3/uL Low 3.70-11.00 [facility] Comment on above: Order Comment: Speci men Type: BLOOD SPECIMENOrdering Facility: [facility] Address: [address] [place] [address] Performed By: #### 5 7021-8 ####[facility] LABCLIA [id number] [place] [address] CNPNon 04-02-2022 CNPN Normal [facility] Comprehensive metabolic 2000 panelon 04-02-2022 Albumin [Mass/Vol] 3.8 g/dL Low 3.9-4.9 [facility] Comment on above: Order Comment: Speci men Type: BLOOD SPECIMENOrdering Facility: [facility] Address: [address] [place] [address] Performed By: #### 2 4323-8, 2532-0 ####[facility] LABCLIA [id number] [place] [address] ALP [Catalytic activity/Vol] 75 U/L Normal 38-113 [facility] Comment on above: Order Comment: Speci men Type: BLOOD SPECIMENOrdering Facility: [facility] Address: [address] [place] [address] Performed By: #### 2 4323-8, 2532-0 ####[facility] LABCLIA [id number] [place] [address] ALT [Catalytic activity/Vol] 30 U/L Normal 10-54 [facility] Comment on above: Order Comment: Speci men Type: BLOOD SPECIMENOrdering Facility: [facility] Address: [address] [place] [address] Performed By: #### 2 4323-8, 2532-0 ####[facility] LABIA [id number] [place] [address] Anion gap [Moles/Vol] 9 mmol/L Normal 9-18 [facility] Comment on above: Order Comment: Speci men Type: BLOOD SPECIMENOrdering Facility: [facility] Address: [address] [place] [address] Performed By: #### 2 4323-8, 2532-0 ####[facility] LABIA [id number] [place] [address] AST [Catalytic activity/Vol] 14 U/L Normal 14-40 [facility] Comment on above: Order Comment: Speci men Type: BLOOD SPECIMENOrdering Facility: [facility] Address: [address] [place], [place] [address] Performed By: #### 2 4323-8, 2531-0 ####[facility] LABCLIA [id number] [place] [address] Bilirubin [Mass/Vol] 0.7 mg/dL Normal 0.2-1.3 [facility] Comment on above: Order Comment: Speci men Type: BLOOD SPECIMENOrdering Facility: [facility] Address: [address] [place] [address] Performed By: #### 2 4328, 2531-0 ####[facility] LABIA [id number] [place] [address] Calcium [Mass/Vol] 9.1 mg/dL Normal 8.5-10.2 [facility] Comment on above: Order Comment: Speci men Type: BLOOD SPECIMENOrdering Facility: [facility] Address: [address] [place] [address] Performed By: #### 2 4328, 2531-0 ####[facility] LABIA [id number] [place] [address] Chloride [Moles/Vol] 107 mmol/L High 97-105 [facility] Comment on above: Order Comment: Speci men Type: BLOOD SPECIMENOrdering Facility: [facility] Address: [address] [place], [place] [address] Performed By: #### 2 4328, 2531-0 ####[facility] LABCLIA [id number] [place] [address] CO2 [Moles/Vol] 27 mmol/L Normal 22-30 [facility] Comment on above: Order Comment: Speci men Type: BLOOD SPECIMENOrdering Facility: [facility] Address: [address] [place], [place] [address] Performed By: #### 2 4323-8, 2531-0 ####[facility] LABCLIA [id number] [place] [address] Creatinine [Mass/Vol] 1.72 mg/dL High 0.73-1.22 [facility] Comment on above: Order Comment: Davi avendaño Type: BLOOD SPECIMENOrdering Facility: [facility] Address: [address] [place], [place] [address] Performed By: #### 2 4323-8, 2531-0 ####[facility] LABCLIA [id number] [place] [address] ESTIMATED GLOMERULAR FILTRATION RATE 39 mL/min/1.73m??? Low >=60 [facility] Comment on above: Order Comment: Davi avendaño Type: BLOOD SPECIMENOrdering Facility: [facility] Address: [address] [place] [address] Result Comment: Faye mated Glomerular Filtration Rate (eGFR) is calculated using the 2020 CKD-EPI creatinine equation. This equation utilizes serum creatinine, sex, and age as parameters. The creatinine assay has traceable calibration to isotope dilution-mass spectrometry. Refer to KDIGO guidelines for clinical interpretation. In patients with unstable renal function, e.g. those with acute kidney injury, the eGFR may not accurately reflect actual GFR. Performed By: #### 2 4323-8, 2531-0 ####[facility] LABCLIA [id number] [place] [address] Glucose [Mass/Vol] 190 mg/dL High 74-99 [facility] Comment on above: Order Comment: Davi avendaño Type: BLOOD SPECIMENOrdering Facility: [facility] Address: [address] [place] [address] Result Comment: The [place] [employer] (ADA) provides guidance for cutoff values for fasting glucose and random glucose. The ADA defines fasting as no caloric intake for at least 8 hours. Fasting plasma glucose results between 100 to 125 mg/dL indicate increased risk for diabetes (prediabetes).Fasting plasma glucose results greater than or equal to 126 mg/dL meet the criteria for diagnosis of diabetes. In the absence of unequivocal hyperglycemia, results should be confirmed by repeat testing. In a patient with classic symptoms of hyperglycemia or hyperglycemic crisis, random plasma glucose results greater than or equal to 200 mg/dL meet the criteria for diagnosis of diabetes.Reference: Standards of Medical Care in Diabetes 2016, [employer] [place] [employer]. Diabetes Care. 2016.39(Suppl 1). Performed By: #### 2 4323-8, 0 ####[facility] LABCLIA [id number] [place] [address] Potassium [Moles/Vol] 4.3 mmol/L Normal 3.7-5.1 [facility] Comment on above: Order Comment: Speci men Type: BLOOD SPECIMENOrdering Facility: [facility] Address: [address] Performed By: #### 2 4328, 0 ####[facility] LABCLIA [id number] [place] [address] Protein [Mass/Vol] 5.7 g/dL Low 6.3-8.0 [facility] Comment on above: Order Comment: Speci men Type: BLOOD SPECIMENOrdering Facility: [facility] Address: [address] Performed By: #### 2 4328, ####[facility] LABCLIA [id number] [place] [address] Sodium [Moles/Vol] 143 mmol/L Normal 136-144 [facility] Comment on above: Order Comment: Speci men Type: BLOOD SPECIMENOrdering Facility: [facility] Address: [address] [place] [address] Performed By: #### 2 4323-8, 0 ####[facility] LABIA [id number] [place] [address] Urea nitrogen [Mass/Vol] 25 mg/dL High 9-24 [facility] Comment on above: Order Comment: Speci men Type: BLOOD SPECIMENOrdering Facility: [facility] Address: [address] [place] Performed By: #### 2 4323-8, 2532-0 ####[facility] LABCLIA [id number] [place] [address] LDH SerPl-cCncon 04-02-2022 LDH [Catalytic activity/Vol] 202 U/L Normal 135-225 [facility] Comment on above: Order Comment: Speci men Type: BLOOD SPECIMENOrdering Facility: [facility] Address: [address] [place], [place] [address] Performed By: #### 2 4323-8, 253-0 ####[facility] LABCLIA [id number] [address] [place] [id number] CBC W Auto Differential pane l (Bld)on 03-25-2022 Anisocytosis Ql (Bld) Present Normal [facility] Comment on above: Order Comment: Speci men Type: BLOOD SPECIMENOrdering Facility: [facility] Address: [address] [place] [address] Performed By: #### 5 7021-8 ####[facility] LABCLIA [id number] [address] [place] [id number] LABCLIA [id number] [place] [address] [place] Band form neutrophils/100 WBC (Bld) 0.0 % Normal [facility] Comment on above: Order Comment: Speci men Type: BLOOD SPECIMENOrdering Facility: [facility] Address: [address] [place], [place] [address] Performed By: #### 5 7021-8 ####[facility] LABCLIA [id number] [address] [id number] LABCLIA [id number] [place] [address] [place] Basophils/100 WBC (Bld) 1.8 % Normal [facility] Comment on above: Order Comment: Speci men Type: BLOOD SPECIMENOrdering Facility: [facility] Address: [address] [place] [address] Performed By: #### 5 7021-8 ####[facility] LABCLIA [id number] [address] LABCLIA [id number] [place] [address] [place] Differential cell count method Nom (Bld) Manual Normal [facility] Comment on above: Order Comment: Speci men Type: BLOOD SPECIMENOrdering Facility: [facility] Address: [address] [place] [address] Performed By: #### 5 7021-8 ####[facility] LABCLIA [id number] [address] LABCLIA [id number] [place] [address] [place] Eosinophils (Bld) [#/Vol] 0.00 10*3/uL Normal <0.46 [facility] Comment on above: Order Comment: Speci men Type: BLOOD SPECIMENOrdering Facility: [facility] Address: [address] [place], [place] [address] Performed By: #### 5 7021-8 ####[facility] LABCLIA [id number] [address] LABCLIA [id number] [place] [address] [place] Eosinophils/100 WBC (Bld) 0.0 % Normal [facility] Comment on above: Order Comment: Speci men Type: BLOOD SPECIMENOrdering Facility: [facility] Address: [address] [place], [place] [address] Performed By: #### 5 7021-8 ####[facility] LABCLIA [id number] [address] LABCLIA [id number] [place] [address] [place] Erythrocyte distribution width (RBC) [Ratio] 24.5 % High 11.5-15.0 [facility] Comment on above: Order Comment: Speci men Type: BLOOD SPECIMENOrdering Facility: [facility] Address: [address] [place] [address] Performed By: #### 5 7021-8 ####[facility] LABCLIA [id number] [address] LABCLIA [id number] [place] [address] [place] Hematocrit (Bld) [Volume fraction] 26.0 % Low 39.0-51.0 [facility] Comment on above: Order Comment: Speci men Type: BLOOD SPECIMENOrdering Facility: [facility] Address: [address] [place] [address] Performed By: #### 5 7021-8 ####[facility] LABCLIA [id number] [address] LABCLIA [id number] [place] [address] [place] Hemoglobin (Bld) [Mass/Vol] 8.2 g/dL Low 13.0-17.0 [facility] Comment on above: Order Comment: Speci men Type: BLOOD SPECIMENOrdering Facility: [facility] Address: [address] [place], [place] [address] Performed By: #### 5 7021-8 ####[facility] LABCLIA [id number] [address] LABCLIA [id number] [place] [address] [place] Lymphocytes (Bld) [#/Vol] 1.18 10*3/uL Normal 1.00-4.00 [facility] Comment on above: Order Comment: Speci men Type: BLOOD SPECIMENOrdering Facility: [facility] Address: [address] [place] [address] Performed By: #### 5 7021-8 ####[facility] LABCLIA [id number] [address] LABCLIA [id number] [place] [address] [place] Lymphocytes/100 WBC (Bld) 43.2 % Normal [facility] Comment on above: Order Comment: Speci men Type: BLOOD SPECIMENOrdering Facility: [facility] Address: [address] [place] [address] Performed By: #### 5 7021-8 ####[facility] LABCLIA [id number] [address] LABCLIA [id number] [place] [address] [place] MCH (RBC) [Entitic mass] 32.7 pg Normal 26.0-34.0 [facility] Comment on above: Order Comment: Speci men Type: BLOOD SPECIMENOrdering Facility: [facility] Address: [address] [place] [address] Performed By: #### 5 7021-8 ####[facility] LABCLIA [id number] [address] LABCLIA [id number] [place] [address] [place] MCHC (RBC) [Mass/Vol] 31.5 g/dL Normal 30.5-36.0 [facility] Comment on above: Order Comment: Speci men Type: BLOOD SPECIMENOrdering Facility: [facility] Address: [address] [place], [place] [address] Performed By: #### 5 7021-8 ####[facility] LABCLIA [id number] [address] LABCLIA [id number] [place] [address] [place] MCV (RBC) [Entitic vol] 103.6 fL High 80.0-100.0 [facility] Comment on above: Order Comment: Speci men Type: BLOOD SPECIMENOrdering Facility: [facility] Address: [address] [place] [address] Performed By: #### 5 7021-8 ####[facility] LABCLIA [id number] [address] LABCLIA [id number] [place] [address] [place] Neutrophils (Bld) [#/Vol] 1.35 10*3/uL Low 1.45-7.50 [facility] Comment on above: Order Comment: Speci men Type: BLOOD SPECIMENOrdering Facility: [facility] Address: [address] [place], [place] [address] Performed By: #### 5 7021-8 ####[facility] LABCLIA [id number] [address] LABCLIA [id number] [place] [address] [place] Neutrophils/100 WBC (Bld) 49.6 % Normal [facility] Comment on above: Order Comment: Speci men Type: BLOOD SPECIMENOrdering Facility: [facility] Address: [address] [place], [place] [address] Performed By: #### 5 7021-8 ####[facility] LABCLIA [id number] [address] LABCLIA [id number] [place] [address] [place] Nucleated RBC/100 WBC (Bld) [Ratio] 0.0 /100 WBC Normal [facility] Comment on above: Order Comment: Speci men Type: BLOOD SPECIMENOrdering Facility: [facility] Address: [address] [place], [place] [address] Performed By: #### 5 7021-8 ####[facility] LABCLIA [id number] [address] LABCLIA [id number] [place] [address] [place] Ovalocytes LM Ql (Bld) Few Normal [facility] Comment on above: Order Comment: Speci men Type: BLOOD SPECIMENOrdering Facility: [facility] Address: [address] [place] [address] Performed By: #### 5 7021-8 ####[facility] LABCLIA [id number] [address] LABCLIA [id number] [place] [address] [place] PLATELET ESTIMATE Decreased Normal [facility] Comment on above: Order Comment: Speci men Type: BLOOD SPECIMENOrdering Facility: [facility] Address: [address] [place], [place] [address] Performed By: #### 5 7021-8 ####[facility] LABCLIA [id number] [address] LABCLIA [id number] [place] [address] [place] Platelet mean volume (Bld) [Entitic vol] 14.5 fL High 9.0-12.7 [facility] Comment on above: Order Comment: Speci men Type: BLOOD SPECIMENOrdering Facility: [facility] Address: [address] [place] [address] Performed By: #### 5 7021-8 ####[facility] LABCLIA [id number] [address] LABCLIA [id number] [place] [address] [place] Platelets (Bld) [#/Vol] 64 10*3/uL Low 150-400 [facility] Comment on above: Order Comment: Speci men Type: BLOOD SPECIMENOrdering Facility: [facility] Address: [address] [place] [address] Result Comment: Samp le checked for clot Performed By: #### 5 7021-8 ####[facility] LABCLIA [id number] [address] LABCLIA [id number] [place] [address] [place] Platelets agranular LM Ql (Bld) Present Normal [facility] Comment on above: Order Comment: Speci men Type: BLOOD SPECIMENOrdering Facility: [facility] Address: [address] [place] [address] Performed By: #### 5 7021-8 ####[facility] LABCLIA [id number] [address] LABCLIA [id number] [place] [address] [place] Polychromasia LM Ql (Bld) Slight Normal [facility] Comment on above: Order Comment: Speci men Type: BLOOD SPECIMENOrdering Facility: [facility] Address: [address] [place], [place] [address] Performed By: #### 5 7021-8 ####[facility] LABCLIA [id number] [address] LABCLIA [id number] [place] [address] [place] RBC (Bld) [#/Vol] 2.51 10*6/uL Low 4.20-6.00 [facility] Comment on above: Order Comment: Speci men Type: BLOOD SPECIMENOrdering Facility: [facility] Address: [address] [place], [place] [address] Performed By: #### 5 7021-8 ####[facility] LABCLIA [id number] [address] LABCLIA [id number] [place] [address] [place] RBC FRAGMENTS Few Abnormal None Seen [facility] Comment on above: Order Comment: Speci men Type: BLOOD SPECIMENOrdering Facility: [facility] Address: [address] [place] [address] Performed By: #### 5 7021-8 ####[facility] LABCLIA [id number] [address] LABCLIA [id number] [place] [address] [place] RED CELL MORPH Reviewed: see result s of individual morphologies Normal [facility] Comment on above: Order Comment: Speci men Type: BLOOD SPECIMENOrdering Facility: [facility] Address: [address] [place] [address] Performed By: #### 5 7021-8 ####[facility] LABCLIA [id number] [address] LABCLIA [id number] [place] [address] [place] Variant lymphocytes/100 WBC (Bld) 0.0 % Normal [facility] Comment on above: Order Comment: Speci men Type: BLOOD SPECIMENOrdering Facility: [facility] Address: [address] [place] [address] Performed By: #### 5 7021-8 ####[facility] LABCLIA [id number] [address] LABCLIA [id number] [place] [address] [place] WAM - ABS BASO 0.05 k/uL Normal <0.11 [facility] Comment on above: Order Comment: Speci men Type: BLOOD SPECIMENOrdering Facility: [facility] Address: [address] [place] [address] Performed By: #### 5 7021-8 ####[facility] LABCLIA [id number] [place] [address] LABCLIA [id number] [place] [address] [place] WAM - ABS MONO 0.15 k/uL Normal <0.87 [facility] Comment on above: Order Comment: Speci men Type: BLOOD SPECIMENOrdering Facility: [facility] Address: [address] [place] [address] Performed By: #### 5 7021-8 ####[facility] LABCLIA [id number] [address] LABCLIA [id number] [place] [address] [place] WAM - MONO% 5.4 % Normal [facility] Comment on above: Order Comment: Speci men Type: BLOOD SPECIMENOrdering Facility: [facility] Address: [address] [place] [address] Performed By: #### 5 7021-8 ####[facility] LABCLIA [id number] [address] LABCLIA [id number] [place] [address] [place] WAM ABSOLUTE NRBC <0.01 Normal <0.01 [facility] Comment on above: Order Comment: Speci men Type: BLOOD SPECIMENOrdering Facility: [facility] Address: [address] [place] [address] Performed By: #### 5 7021-8 ####[facility] LABCLIA [id number] [address] LABCLIA [id number] [place] [address] [place] WBC (Bld) [#/Vol] 2.72 10*3/uL Low 3.70-11.00 [facility] Comment on above: Order Comment: Speci men Type: BLOOD SPECIMENOrdering Facility: [facility] Address: [address] [place] [address] Performed By: #### 5 7021-8 ####[facility] LABCLIA [id number] [place] [address] LABCLIA [id number] [place] [address] [facility] [place] Comprehensive metabolic 2000 panelon 03-25-2022 Albumin [Mass/Vol] 3.9 g/dL Normal 3.9-4.9 [facility] Comment on above: Order Comment: Speci men Type: BLOOD SPECIMENOrdering Facility: [facility] Address: [address] [place], [place] [address] Performed By: #### 2 4323-8, 253-0 ####[facility] LABCLIA [id number] [place] [address] ALP [Catalytic activity/Vol] 69 U/L Normal 38-113 [facility] Comment on above: Order Comment: Speci men Type: BLOOD SPECIMENOrdering Facility: [facility] Address: [address] [place], [place] [address] Performed By: #### 2 4323-8, 2532-0 ####[facility] LABCLIA [id number] [place] [address] ALT [Catalytic activity/Vol] 40 U/L Normal 10-54 [facility] Comment on above: Order Comment: Speci men Type: BLOOD SPECIMENOrdering Facility: [facility] Address: [address] [place], [place] [address] Performed By: #### 2 4323-8, 2532-0 ####[facility] LABCLIA [id number] [place] [address] Anion gap [Moles/Vol] 11 mmol/L Normal 9-18 [facility] Comment on above: Order Comment: Speci men Type: BLOOD SPECIMENOrdering Facility: [facility] Address: [address] [place] [address] Performed By: #### 2 4323-8, 2532-0 ####[facility] LABCLIA [id number] [place] [address] AST [Catalytic activity/Vol] 17 U/L Normal 14-40 [facility] Comment on above: Order Comment: Speci men Type: BLOOD SPECIMENOrdering Facility: [facility] Address: [address] [place] [address] Performed By: #### 2 4323-8, 2532-0 ####[facility] LABCLIA [id number] [place] [address] Bilirubin [Mass/Vol] 0.6 mg/dL Normal 0.2-1.3 [facility] Comment on above: Order Comment: Speci men Type: BLOOD SPECIMENOrdering Facility: [facility] Address: [address] [place] [address] Performed By: #### 2 4323-8, 2532-0 ####[facility] LABCLIA [id number] [place] [address] Calcium [Mass/Vol] 8.9 mg/dL Normal 8.5-10.2 [facility] Comment on above: Order Comment: Speci men Type: BLOOD SPECIMENOrdering Facility: [facility] Address: [address] [place], [place] [address] Performed By: #### 2 4323-8, 2532-0 ####[facility] LABCLIA [id number] [place] [address] Chloride [Moles/Vol] 104 mmol/L Normal 97-105 [facility] Comment on above: Order Comment: Speci men Type: BLOOD SPECIMENOrdering Facility: [facility] Address: [address] [place] [address] Performed By: #### 2 4323-8, 2531-0 ####[facility] LABCLIA [id number] [place] [address] CO2 [Moles/Vol] 29 mmol/L Normal 22-30 [facility] Comment on above: Order Comment: Speci men Type: BLOOD SPECIMENOrdering Facility: [facility] Address: [address] [place] [address] Performed By: #### 2 4323-8, 2531-0 ####[facility] LABCLIA [id number] [place] [address] Creatinine [Mass/Vol] 1.89 mg/dL High 0.73-1.22 [facility] Comment on above: Order Comment: Speci men Type: BLOOD SPECIMENOrdering Facility: [facility] Address: [address] [place] [address] Performed By: #### 2 4323-8, 2531-0 ####[facility] LABIA [id number] [place] [address] ESTIMATED GLOMERULAR FILTRATION RATE 35 mL/min/1.73m??? Low >=60 [facility] Comment on above: Order Comment: Speci men Type: BLOOD SPECIMENOrdering Facility: [facility] Address: [address] [place] [address] Result Comment: Faye mated Glomerular Filtration Rate (eGFR) is calculated using the 2020 CKD-EPI creatinine equation. This equation utilizes serum creatinine, sex, and age as parameters. The creatinine assay has traceable calibration to isotope dilution-mass spectrometry. Refer to KDIGO guidelines for clinical interpretation. In patients with unstable renal function, e.g. those with acute kidney injury, the eGFR may not accurately reflect actual GFR. Performed By: #### 2 4323-8, 2531-0 ####[facility] LABCLIA [id number] [place] [address] Glucose [Mass/Vol] 214 mg/dL High 74-99 [facility] Comment on above: Order Comment: Speci men Type: BLOOD SPECIMENOrdering Facility: [facility] Address: [address] [place] [address] Result Comment: The [place] [employer] (ADA) provides guidance for cutoff values for fasting glucose and random glucose. The ADA defines fasting as no caloric intake for at least 8 hours. Fasting plasma glucose results between 100 to 125 mg/dL indicate increased risk for diabetes (prediabetes).Fasting plasma glucose results greater than or equal to 126 mg/dL meet the criteria for diagnosis of diabetes. In the absence of unequivocal hyperglycemia, results should be confirmed by repeat testing. In a patient with classic symptoms of hyperglycemia or hyperglycemic crisis, random plasma glucose results greater than or equal to 200 mg/dL meet the criteria for diagnosis of diabetes.Reference: Standards of Medical Care in Diabetes 2016, [place] [employer]. Diabetes Care. 2016.39(Suppl 1). Performed By: #### 2 4323-8, 2531-0 ####[facility] LABCLIA [id number] [place] [address] Potassium [Moles/Vol] 4.1 mmol/L Normal 3.7-5.1 [facility] Comment on above: Order Comment: Speci men Type: BLOOD SPECIMENOrdering Facility: [facility] Address: [address] [place], [place] [address] Performed By: #### 2 4323-8, 2531-0 ####[facility] LABCLIA [id number] [place] [address] Protein [Mass/Vol] 5.9 g/dL Low 6.3-8.0 [facility] Comment on above: Order Comment: Speci men Type: BLOOD SPECIMENOrdering Facility: [facility] Address: [address] [place], [place] [address] Performed By: #### 2 4323-8, 2531-0 ####[facility] LABCLIA [id number] [place] [address] Sodium [Moles/Vol] 144 mmol/L Normal 136-144 [facility] Comment on above: Order Comment: Speci men Type: BLOOD SPECIMENOrdering Facility: [facility] Address: [address] [place] [address] Performed By: #### 2 4323-8, 2532-0 ####[facility] LABCLIA [id number] [place] [address] Urea nitrogen [Mass/Vol] 25 mg/dL High 9-24 [facility] Comment on above: Order Comment: Speci men Type: BLOOD SPECIMENOrdering Facility: [facility] Address: [address] [place] [address] Performed By: #### 2 4323-8, 2532-0 ####[facility] LABCLIA [id number] [place] [address] LDH SerPl-cCncon 03-25-2022 LDH [Catalytic activity/Vol] 230 U/L High 135-225 [facility] Comment on above: Order Comment: Speci men Type: BLOOD SPECIMENOrdering Facility: [facility] Address: [address] [place] [address] Performed By: #### 2 4323-8, 2532-0 ####[facility] LABCLIA [id number] [place] [address] CNPNon 03-19-2022 CNPN Normal [facility] CBC W Auto Differential pane l (Bld)on 03-18-2022 Anisocytosis Ql (Bld) Present Normal [facility] Comment on above: Order Comment: Speci men Type: BLOOD SPECIMENOrdering Facility: [facility] Address: [address] [place] [address] Performed By: #### 5 7021-8 ####[facility] LABCLIA [id number] [address] LABCLIA [id number] [place] [address] Basophils/100 WBC (Bld) 0.0 % Normal [facility] Comment on above: Order Comment: Speci men Type: BLOOD SPECIMENOrdering Facility: [facility] Address: [address] [place] [address] Performed By: #### 5 7021-8 ####[facility] LABCLIA [id number] [address] LABCLIA [id number] [place] [address] Differential cell count method Nom (Bld) Manual Normal [facility] Comment on above: Order Comment: Speci men Type: BLOOD SPECIMENOrdering Facility: [facility] Address: [address] [place] [address] Performed By: #### 5 7021-8 ####[facility] LABCLIA [id number] [address] LABCLIA [id number] [place] [address] Eosinophils (Bld) [#/Vol] 0.00 10*3/uL Normal <0.46 [facility] Comment on above: Order Comment: Speci men Type: BLOOD SPECIMENOrdering Facility: [facility] Address: [address] [place], [place] [address] Performed By: #### 5 7021-8 ####[facility] LABCLIA [id number] [address] LABCLIA [id number] [place] [address] Eosinophils/100 WBC (Bld) 0.0 % Normal [facility] Comment on above: Order Comment: Speci men Type: BLOOD SPECIMENOrdering Facility: [facility] Address: [address] [place], [place] [address] Performed By: #### 5 7021-8 ####[facility] LABCLIA [id number] [address] LABCLIA [id number] [place] [address] Erythrocyte distribution width (RBC) [Ratio] 24.4 % High 11.5-15.0 [facility] Comment on above: Order Comment: Speci men Type: BLOOD SPECIMENOrdering Facility: [facility] Address: [address] [place] [address] Performed By: #### 5 7021-8 ####[facility] LABCLIA [id number] [address] LABCLIA [id number] [place] [address] Giant platelets LM Ql (Bld) Occasional Normal [facility] Comment on above: Order Comment: Speci men Type: BLOOD SPECIMENOrdering Facility: [facility] Address: [address] [place] [address] Performed By: #### 5 7021-8 ####[facility] LABCLIA [id number] [address] LABCLIA [id number] [place] [address] Hematocrit (Bld) [Volume fraction] 29.4 % Low 39.0-51.0 [facility] Comment on above: Order Comment: Speci men Type: BLOOD SPECIMENOrdering Facility: [facility] Address: [address] [place] [address] Performed By: #### 5 7021-8 ####[facility] LABCLIA [id number] [address] LABCLIA [id number] [place] [address] Hemoglobin (Bld) [Mass/Vol] 9.3 g/dL Low 13.0-17.0 [facility] Comment on above: Order Comment: Speci men Type: BLOOD SPECIMENOrdering Facility: [facility] Address: [address] [place] [address] Performed By: #### 5 7021-8 ####[facility] LABCLIA [id number] [address] LABCLIA [id number] [place] [address] Lymphocytes (Bld) [#/Vol] 0.83 10*3/uL Low 1.00-4.00 [facility] Comment on above: Order Comment: Speci men Type: BLOOD SPECIMENOrdering Facility: [facility] Address: [address] [place] [address] Performed By: #### 5 7021-8 ####[facility] LABCLIA [id number] [address] LABCLIA [id number] [place] [address] Lymphocytes/100 WBC (Bld) 24.8 % Normal [facility] Comment on above: Order Comment: Speci men Type: BLOOD SPECIMENOrdering Facility: [facility] Address: [address] [place] [address] Performed By: #### 5 7021-8 ####[facility] LABCLIA [id number] [address] LABCLIA [id number] [place] [address] MCH (RBC) [Entitic mass] 32.2 pg Normal 26.0-34.0 [facility] Comment on above: Order Comment: Speci men Type: BLOOD SPECIMENOrdering Facility: [facility] Address: [address] [place], [place] [address] Performed By: #### 5 7021-8 ####[facility] LABCLIA [id number] [address] [address] [facility] LABCLIA [id number] [place] [address] MCHC (RBC) [Mass/Vol] 31.6 g/dL Normal 30.5-36.0 [facility] Comment on above: Order Comment: Speci men Type: BLOOD SPECIMENOrdering Facility: [facility] Address: [address] [place], [place] [address] Performed By: #### 5 7021-8 ####[facility] LABCLIA [id number] [place] [address] [facility] LABCLIA [id number] [place] [address] MCV (RBC) [Entitic vol] 101.7 fL High 80.0-100.0 [facility] Comment on above: Order Comment: Speci men Type: BLOOD SPECIMENOrdering Facility: [facility] Address: [address] [place] [address] Performed By: #### 5 7021-8 ####[facility] LABCLIA [id number] [place] [address] [facility] LABCLIA [id number] [place] [address] Metamyelocytes/100 WBC (Bld) 1.8 % Normal [facility] Comment on above: Order Comment: Speci men Type: BLOOD SPECIMENOrdering Facility: [facility] Address: [address] [place], [place] [address] Performed By: #### 5 7021-8 ####[facility] LABCLIA [id number] [address] [address] [facility] LABCLIA [id number] [place] [address] MYELO% 2.7 % Normal [facility] Comment on above: Order Comment: Speci men Type: BLOOD SPECIMENOrdering Facility: [facility] Address: [address] [place] [address] Performed By: #### 5 7021-8 ####[facility] LABCLIA [id number] [address] LABCLIA [id number] [place] [address] Neutrophils (Bld) [#/Vol] 2.17 10*3/uL Normal 1.45-7.50 [facility] Comment on above: Order Comment: Speci men Type: BLOOD SPECIMENOrdering Facility: [facility] Address: [address] [place] [address] Performed By: #### 5 7021-8 ####[facility] LABCLIA [id number] [address] LABCLIA [id number] [place] [address] Neutrophils/100 WBC (Bld) 64.5 % Normal [facility] Comment on above: Order Comment: Speci men Type: BLOOD SPECIMENOrdering Facility: [facility] Address: [address] [place] [address] Performed By: #### 5 7021-8 ####[facility] LABCLIA [id number] [address] LABCLIA [id number] [place] [address] Nucleated RBC/100 WBC (Bld) [Ratio] 1.8 /100 WBC Normal [facility] Comment on above: Order Comment: Speci men Type: BLOOD SPECIMENOrdering Facility: [facility] Address: [address] [place] [address] Performed By: #### 5 7021-8 ####[facility] LABCLIA [id number] [place] [address] [facility] LABCLIA [id number] [place] [address] Ovalocytes LM Ql (Bld) Few Normal [facility] Comment on above: Order Comment: Speci men Type: BLOOD SPECIMENOrdering Facility: [facility] Address: [address] [place] [address] Performed By: #### 5 7021-8 ####[facility] LABCLIA [id number] [address] LABCLIA [id number] [place] [address] PLATELET ESTIMATE Decreased Normal [facility] Comment on above: Order Comment: Speci men Type: BLOOD SPECIMENOrdering Facility: [facility] Address: [address] [place] [address] Performed By: #### 5 7021-8 ####[facility] LABCLIA [id number] [address] LABCLIA [id number] [place] [address] Platelet mean volume (Bld) [Entitic vol] Normal [facility] Comment on above: Order Comment: Speci men Type: BLOOD SPECIMENOrdering Facility: [facility] Address: [address] [place] [address] Result Comment: Unab le to Report. Performed By: #### 5 7021-8 ####[facility] LABCLIA [id number] [address] LABCLIA [id number] [place] [address] Platelets (Bld) [#/Vol] 124 10*3/uL Low 150-400 [facility] Comment on above: Order Comment: Speci men Type: BLOOD SPECIMENOrdering Facility: [facility] Address: [address] [place] [address] Performed By: #### 5 7021-8 ####[facility] LABCLIA [id number] [address] LABCLIA [id number] [place] [address] Polychromasia LM Ql (Bld) Slight Normal [facility] Comment on above: Order Comment: Speci men Type: BLOOD SPECIMENOrdering Facility: [facility] Address: [address] [place], [place] [address] Performed By: #### 5 7021-8 ####[facility] LABCLIA [id number] [address] LABCLIA [id number] [place] [address] RBC (Bld) [#/Vol] 2.89 10*6/uL Low 4.20-6.00 [facility] Comment on above: Order Comment: Speci men Type: BLOOD SPECIMENOrdering Facility: [facility] Address: [address] [place] [address] Performed By: #### 5 7021-8 ####[facility] LABCLIA [id number] [address] LABCLIA [id number] [place] [address] RBC FRAGMENTS Few Abnormal None Seen [facility] Comment on above: Order Comment: Speci men Type: BLOOD SPECIMENOrdering Facility: [facility] Address: [address] [place] [address] Performed By: #### 5 7021-8 ####[facility] LABCLIA [id number] [address] LABCLIA [id number] [place] [address] RED CELL MORPH Reviewed: see result s of individual morphologies Normal [facility] Comment on above: Order Comment: Speci men Type: BLOOD SPECIMENOrdering Facility: [facility] Address: [address] [place] [address] Performed By: #### 5 7021-8 ####[facility] LABIA [id number] [address] LABCLIA [id number] [place] [address] Variant lymphocytes/100 WBC (Bld) 0.0 % Normal [facility] Comment on above: Order Comment: Speci men Type: BLOOD SPECIMENOrdering Facility: [facility] Address: [address] [place] [address] Performed By: #### 5 7021-8 ####[facility] LABCLIA [id number] [address] LABCLIA [id number] [place] [id number] WAM - ABS BASO 0.00 k/uL Normal <0.11 [facility] Comment on above: Order Comment: Speci men Type: BLOOD SPECIMENOrdering Facility: [facility] Address: [address] [place], [place] [address] Performed By: #### 5 7021-8 ####[facility] LABCLIA [id number] [address] LABIA [id number] [place] [id number] WAM - ABS MONO 0.21 k/uL Normal <0.87 [facility] Comment on above: Order Comment: Speci men Type: BLOOD SPECIMENOrdering Facility: [facility] Address: [address] [place], [place] [address] Performed By: #### 5 7021-8 ####[facility] LABCLIA [id number] [address] [address] [facility] LABCLIA [id number] [place] [address] WAM - MONO% 6.2 % Normal [facility] Comment on above: Order Comment: Speci men Type: BLOOD SPECIMENOrdering Facility: [facility] Address: [address] [place] [address] Performed By: #### 5 7021-8 ####[facility] LABCLIA [id number] [address] LABCLIA [id number] [place] [address] WAM ABSOLUTE NRBC 0.06 k/uL High <0.01 [facility] Comment on above: Order Comment: Speci men Type: BLOOD SPECIMENOrdering Facility: [facility] Address: [address] [place] [address] Result Comment: This result was previously suppressed from the chart. Performed By: #### 5 7021-8 ####[facility] LABCLIA [id number] [address] LABCLIA [id number] [place] [address] WBC (Bld) [#/Vol] 3.36 10*3/uL Low 3.70-11.00 [facility] Comment on above: Order Comment: Speci men Type: BLOOD SPECIMENOrdering Facility: [facility] Address: [address] [place], [place] [address] Performed By: #### 5 7021-8 ####[facility] LABCLIA [id number] [place] [id number] [facility] LABCLIA [id number] [place] [address] WBC Left Shift Ql (Bld) Present Normal [facility] Comment on above: Order Comment: Speci men Type: BLOOD SPECIMENOrdering Facility: [facility] Address: [address] [place] [address] Performed By: #### 5 7021-8 ####[facility] LABCLIA [id number] [facility] [id number] [id number] [facility] LABCLIA [id number] [place] [address] CNPNon 03-18-2022 CNPN Normal [facility] Comprehensive metabolic 2000 panelon 03-18-2022 Albumin [Mass/Vol] 3.8 g/dL Low 3.9-4.9 [facility] Comment on above: Order Comment: Speci men Type: BLOOD SPECIMENOrdering Facility: [facility] Address: [address] [place], [place] [address] Performed By: #### 2 4323-8, 2531-0 ####[facility] LABCLIA [id number] [place] [address] ALP [Catalytic activity/Vol] 67 U/L Normal 38-113 [facility] Comment on above: Order Comment: Speci men Type: BLOOD SPECIMENOrdering Facility: [facility] Address: [address] [place] [address] Performed By: #### 2 4323-8, 2531-0 ####[facility] LABCLIA [id number] [place] [address] ALT [Catalytic activity/Vol] 57 U/L High 10-54 [facility] Comment on above: Order Comment: Speci men Type: BLOOD SPECIMENOrdering Facility: [facility] Address: [address] [place], [place] [address] Performed By: #### 2 4323-8, 2532-0 ####[facility] LABCLIA [id number] [place] [address] Anion gap [Moles/Vol] 9 mmol/L Normal 9-18 [facility] Comment on above: Order Comment: Speci men Type: BLOOD SPECIMENOrdering Facility: [facility] Address: [address] [place], [place] [address] Performed By: #### 2 4323-8, 2531-0 ####[facility] LABCLIA [id number] [place] [address] AST [Catalytic activity/Vol] 21 U/L Normal 14-40 [facility] Comment on above: Order Comment: Speci men Type: BLOOD SPECIMENOrdering Facility: [facility] Address: [address] [place], [place] [address] Performed By: #### 2 4323-8, 2531-0 ####[facility] LABCLIA [id number] [place] [address] Bilirubin [Mass/Vol] 0.8 mg/dL Normal 0.2-1.3 [facility] Comment on above: Order Comment: Speci men Type: BLOOD SPECIMENOrdering Facility: [facility] Address: [address] [place], [place] [address] Performed By: #### 2 4323-8, 2531-0 ####[facility] LABCLIA [id number] [place] [address] Calcium [Mass/Vol] 9.0 mg/dL Normal 8.5-10.2 [facility] Comment on above: Order Comment: Speci men Type: BLOOD SPECIMENOrdering Facility: [facility] Address: [address] [place], [place] [address] Performed By: #### 2 4323-8, 2531-0 ####[facility] LABCLIA [id number] [place] [address] Chloride [Moles/Vol] 102 mmol/L Normal 97-105 [facility] Comment on above: Order Comment: Speci men Type: BLOOD SPECIMENOrdering Facility: [facility] Address: [address] [place] [phone] Performed By: #### 2 4323-8, 0 ####[facility] LABCLIA [id number] [place] [address] CO2 [Moles/Vol] 33 mmol/L High 22-30 [facility] Comment on above: Order Comment: Speci men Type: BLOOD SPECIMENOrdering Facility: [facility] Address: [address] [place] [address] Performed By: #### 2 4328, 0 ####[facility] LABCLIA [id number] [place] [address] Creatinine [Mass/Vol] 1.91 mg/dL High 0.73-1.22 [facility] Comment on above: Order Comment: Speci men Type: BLOOD SPECIMENOrdering Facility: [facility] Address: [address] [place] [address] Performed By: #### 2 4328, 0 ####[facility] LABCLIA [id number] [place] [address] ESTIMATED GLOMERULAR FILTRATION RATE 34 mL/min/1.73m??? Low >=60 [facility] Comment on above: Order Comment: Speci men Type: BLOOD SPECIMENOrdering Facility: [facility] Address: [address] [place] [address] Result Comment: Faye mated Glomerular Filtration Rate (eGFR) is calculated using the 2020 CKD-EPI creatinine equation. This equation utilizes serum creatinine, sex, and age as parameters. The creatinine assay has traceable calibration to isotope dilution-mass spectrometry. Refer to KDIGO guidelines for clinical interpretation. In patients with unstable renal function, e.g. those with acute kidney injury, the eGFR may not accurately reflect actual GFR. Performed By: #### 2 4323-8, 2531-0 ####[facility] LABCLIA [id number] [place] [address] Glucose [Mass/Vol] 261 mg/dL High 74-99 [facility] Comment on above: Order Comment: Speci men Type: BLOOD SPECIMENOrdering Facility: [facility] Address: [address] [place] [address] Result Comment: The [place] [employer] (ADA) provides guidance for cutoff values for fasting glucose and random glucose. The ADA defines fasting as no caloric intake for at least 8 hours. Fasting plasma glucose results between 100 to 125 mg/dL indicate increased risk for diabetes (prediabetes).Fasting plasma glucose results greater than or equal to 126 mg/dL meet the criteria for diagnosis of diabetes. In the absence of unequivocal hyperglycemia, results should be confirmed by repeat testing. In a patient with classic symptoms of hyperglycemia or hyperglycemic crisis, random plasma glucose results greater than or equal to 200 mg/dL meet the criteria for diagnosis of diabetes.Reference: Standards of Medical Care in Diabetes 2016, [place] [employer]. Diabetes Care. 2016.39(Suppl 1). Performed By: #### 2 4323-8, 2531-0 ####[facility] LABCLIA [id number] [place] [address] Potassium [Moles/Vol] 3.6 mmol/L Low 3.7-5.1 [facility] Comment on above: Order Comment: Cristinai men Type: BLOOD SPECIMENOrdering Facility: [facility] Address: [address] [place], [place] [address] Performed By: #### 2 4323-8, 2531-0 ####[facility] LABCLIA [id number] [place] [address] Protein [Mass/Vol] 5.8 g/dL Low 6.3-8.0 [facility] Comment on above: Order Comment: Speci men Type: BLOOD SPECIMENOrdering Facility: [facility] Address: [address] [place] [address] Performed By: #### 2 4323-8, 2531-0 ####[facility] LABCLIA [id number] [place] [address] Sodium [Moles/Vol] 144 mmol/L Normal 136-144 [facility] Comment on above: Order Comment: Speci men Type: BLOOD SPECIMENOrdering Facility: [facility] Address: [address] [place], [place] [address] Performed By: #### 2 4323-8, 2531-0 ####[facility] LABCLIA [id number] [place] [address] Urea nitrogen [Mass/Vol] 39 mg/dL High 9-24 [facility] Comment on above: Order Comment: Speci men Type: BLOOD SPECIMENOrdering Facility: [facility] Address: [address] [place], [place] [address] Performed By: #### 2 4323-8, 2531-0 ####[facility] LABCLIA [id number] [place] [address] LDH SerPl-cCncon 03-18-2022 LDH [Catalytic activity/Vol] 246 U/L High 135-225 [facility] Comment on above: Order Comment: Speci men Type: BLOOD SPECIMENOrdering Facility: [facility] Address: [address] [place] [address] Performed By: #### 2 4323-8, 2531-0 ####[facility] LABCLIA [id number] [place] [address] CNPNon 03-14-2022 CNPN Normal [facility] PRBC LEUKOREDUCEDon 03-12-20 ABO and Rh group Nom (Bld) Cross Match Result Compatible Unit Blood Type A Pos Unit Number [id number] Status Information Transfused Product ID Red Blood Cells Product Code [id number] Cross Match Result Compatible Unit Blood Type A Pos Unit Number [id number] Status Information Transfused Product ID Red Blood Cells Product Code [id number] Normal [facility] Comment on above: Performed By: #### T NS, PRBC #### [facility] [address] [place] [address] Dr. Benito To CBC W Auto Differential pane l (Bld)on 03-11-2022 Erythrocyte distribution width (RBC) [Ratio] 25.5 % High 11.5-15.0 [facility] Comment on above: Order Comment: Speci men Type: BLOOD SPECIMENOrdering Facility: [facility] Address: [address] [place], [place] [address] Performed By: #### 5 7021-8 ####[facility] LABCLIA [id number] [place] [address]#### [id number] ####[facility] LABCLIA [id number] [place] [address] [place] Hematocrit (Bld) [Volume fraction] 22.2 % Low 39.0-51.0 [facility] Comment on above: Order Comment: Speci men Type: BLOOD SPECIMENOrdering Facility: [facility] Address: [address] [place] [address] Performed By: #### 5 7021-8 ####[facility] LABCLIA [id number] [place] [address]#### [id number] ####[facility] LABCLIA [id number] [place] [address] [place] Hemoglobin (Bld) [Mass/Vol] 6.9 g/dL Low 13.0-17.0 [facility] Comment on above: Order Comment: Speci men Type: BLOOD SPECIMENOrdering Facility: [facility] Address: [address] [place] [address] Performed By: #### 5 7021-8 ####[facility] LABCLIA [id number] [place] [address]#### [id number] ####[facility] LABCLIA [id number] [place] [address] [place] MCH (RBC) [Entitic mass] 33.5 pg Normal 26.0-34.0 [facility] Comment on above: Order Comment: Speci men Type: BLOOD SPECIMENOrdering Facility: [facility] Address: [address] [place], [place] [address] Performed By: #### 5 7021-8 ####[facility] LABCLIA [id number] [place] [address]#### [id number] ####[facility] LABCLIA [id number] [place] [address] [place] MCHC (RBC) [Mass/Vol] 31.1 g/dL Normal 30.5-36.0 [facility] Comment on above: Order Comment: Speci men Type: BLOOD SPECIMENOrdering Facility: [facility] Address: [address] [place], [place] [address] Performed By: #### 5 7021-8 ####[facility] LABCLIA [id number] [place] [address]#### [id number] ####[facility] LABCLIA [id number] [place] [address] [place] MCV (RBC) [Entitic vol] 107.8 fL High 80.0-100.0 [facility] Comment on above: Order Comment: Speci men Type: BLOOD SPECIMENOrdering Facility: [facility] Address: [address] [place], [place] [address] Performed By: #### 5 7021-8 ####[facility] LABCLIA [id number] [place] [address]#### [id number] ####[facility] LABCLIA [id number] [place] [address] [place] Platelet mean volume (Bld) [Entitic vol] 13.7 fL High 9.0-12.7 [facility] Comment on above: Order Comment: Speci men Type: BLOOD SPECIMENOrdering Facility: [facility] Address: [address] [place] [address] Performed By: #### 5 7021-8 ####[facility] LABCLIA [id number] [place] [address]#### [id number] ####[facility] LABCLIA [id number] [place] [address] [place] Platelets (Bld) [#/Vol] 119 10*3/uL Low 150-400 [facility] Comment on above: Order Comment: Speci men Type: BLOOD SPECIMENOrdering Facility: [facility] Address: [address] [place] [address] Result Comment: Samp le checked for clot Performed By: #### 5 7021-8 ####[facility] LABCLIA [id number] [place] [address]#### [id number] ####[facility] LABCLIA [id number] [place] [address] [place] RBC (Bld) [#/Vol] 2.06 10*6/uL Low 4.20-6.00 [facility] Comment on above: Order Comment: Speci men Type: BLOOD SPECIMENOrdering Facility: [facility] Address: [address] [place] [address] Performed By: #### 5 7021-8 ####[facility] LABCLIA [id number] [place] [id number]#### [id number] ####[facility] LABCLIA [id number] [place] [address] [place] WBC (Bld) [#/Vol] 1.70 10*3/uL Low 3.70-11.00 [facility] Comment on above: Order Comment: Speci men Type: BLOOD SPECIMENOrdering Facility: [facility] Address: [address] [place] [address] Result Comment: Samp le checked for clot Performed By: #### 5 7021-8 ####[facility] LABCLIA [id number] [place] [address]#### [id number] ####[facility] LABCLIA [id number] [place]ALEY HINSD[place] [address] [place] CNOVSPon 03-11-2022 CNOVSP Normal [facility] CNPNon 03-11-2022 CNPN Normal [facility] Comprehensive metabolic 2000 panelon 03-11-2022 Albumin [Mass/Vol] 3.8 g/dL Low 3.9-4.9 [facility] Comment on above: Order Comment: Speci men Type: BLOOD SPECIMENOrdering Facility: [facility] Address: [address] [place] [address] Performed By: #### 2 532-0, 75105-0 ####[facility] LABIA [id number] [place] [address] ALP [Catalytic activity/Vol] 70 U/L Normal 38-113 [facility] Comment on above: Order Comment: Speci men Type: BLOOD SPECIMENOrdering Facility: [facility] Address: [address] [place] [address] Performed By: #### 2 532-0, 87406-9 ####[facility] LABIA [id number] [place] [address] ALT [Catalytic activity/Vol] 19 U/L Normal 10-54 [facility] Comment on above: Order Comment: Speci men Type: BLOOD SPECIMENOrdering Facility: [facility] Address: [address] [place] [address] Performed By: #### 2 532-0, 42072-1 ####[facility] LABIA [id number] [place] [address] Anion gap [Moles/Vol] 12 mmol/L Normal 9-18 [facility] Comment on above: Order Comment: Speci men Type: BLOOD SPECIMENOrdering Facility: [facility] Address: [address] [place], [place] [address] Performed By: #### 2 532-0, 23994-6 ####[facility] LABCLIA [id number] [place] [address] AST [Catalytic activity/Vol] 11 U/L Low 14-40 [facility] Comment on above: Order Comment: Speci men Type: BLOOD SPECIMENOrdering Facility: [facility] Address: [address] [place] [address] Performed By: #### 2 532-0, ####[facility] LABCLIA [id number] [place] [address] Bilirubin [Mass/Vol] 0.6 mg/dL Normal 0.2-1.3 [facility] Comment on above: Order Comment: Speci men Type: BLOOD SPECIMENOrdering Facility: [facility] Address: [address] [place] [address] Performed By: #### 2 532-0, ####[facility] LABCLIA [id number] [place] [address] Calcium [Mass/Vol] 8.6 mg/dL Normal 8.5-10.2 [facility] Comment on above: Order Comment: Speci men Type: BLOOD SPECIMENOrdering Facility: [facility] Address: [address] [place] [address] Performed By: #### 2 532-0, 23013-6 ####[facility] LABCLIA [id number] [place] [address] Chloride [Moles/Vol] 106 mmol/L High 97-105 [facility] Comment on above: Order Comment: Speci men Type: BLOOD SPECIMENOrdering Facility: [facility] Address: [address] [place] [address] Performed By: #### 2 532-0, 91363-1 ####[facility] LABCLIA [id number] [place] [address] CO2 [Moles/Vol] 27 mmol/L Normal 22-30 [facility] Comment on above: Order Comment: Speci men Type: BLOOD SPECIMENOrdering Facility: [facility] Address: [address] [place] [address] Performed By: #### 2 532-0, 99765-5 ####[facility] LABIA [id number] [place] [address] Creatinine [Mass/Vol] 1.86 mg/dL High 0.73-1.22 [facility] Comment on above: Order Comment: Speci men Type: BLOOD SPECIMENOrdering Facility: [facility] Address: [address] [place] [address] Performed By: #### 2 532-0, 48096-2 ####[facility] LABIA [id number] [place] [address] ESTIMATED GLOMERULAR FILTRATION RATE 35 mL/min/1.73m??? Low >=60 [facility] Comment on above: Order Comment: Speci men Type: BLOOD SPECIMENOrdering Facility: [facility] Address: [address] [place] [address] Result Comment: Faye mated Glomerular Filtration Rate (eGFR) is calculated using the 2020 CKD-EPI creatinine equation. This equation utilizes serum creatinine, sex, and age as parameters. The creatinine assay has traceable calibration to isotope dilution-mass spectrometry. Refer to KDIGO guidelines for clinical interpretation. In patients with unstable renal function, e.g. those with acute kidney injury, the eGFR may not accurately reflect actual GFR. Performed By: #### 2 532-0, 94251-5 ####[facility] LABIA [id number] [place] [address] Glucose [Mass/Vol] 214 mg/dL High 74-99 [facility] Comment on above: Order Comment: Speci men Type: BLOOD SPECIMENOrdering Facility: [facility] Address: [address] [place] [address] Result Comment: The [place] [employer] (ADA) provides guidance for cutoff values for fasting glucose and random glucose. The ADA defines fasting as no caloric intake for at least 8 hours. Fasting plasma glucose results between 100 to 125 mg/dL indicate increased risk for diabetes (prediabetes).Fasting plasma glucose results greater than or equal to 126 mg/dL meet the criteria for diagnosis of diabetes. In the absence of unequivocal hyperglycemia, results should be confirmed by repeat testing. In a patient with classic symptoms of hyperglycemia or hyperglycemic crisis, random plasma glucose results greater than or equal to 200 mg/dL meet the criteria for diagnosis of diabetes.Reference: Standards of Medical Care in Diabetes 2016, [place] [employer]. Diabetes Care. 2016.39(Suppl 1). Performed By: #### 2 532-0, 26712-2 ####[facility] LABCLIA [id number] [place] [address] Potassium [Moles/Vol] 3.8 mmol/L Normal 3.7-5.1 [facility] Comment on above: Order Comment: Speci men Type: BLOOD SPECIMENOrdering Facility: [facility] Address: [address] [place], [place] [address] Performed By: #### 2 532-0, 00621-4 ####[facility] LABIA [id number] [place] [address] Protein [Mass/Vol] 5.8 g/dL Low 6.3-8.0 [facility] Comment on above: Order Comment: Speci men Type: BLOOD SPECIMENOrdering Facility: [facility] Address: [address] [place] [address] Performed By: #### 2 532-0, 36237-9 ####[facility] LABCLIA [id number] [place] [address] Sodium [Moles/Vol] 145 mmol/L High 136-144 [facility] Comment on above: Order Comment: Speci men Type: BLOOD SPECIMENOrdering Facility: [facility] Address: [address] [id number] Performed By: #### 2 532-0, 19094-6 ####[facility] LABCLIA [id number] [place] [address] Urea nitrogen [Mass/Vol] 17 mg/dL Normal 9-24 [facility] Comment on above: Order Comment: Speci men Type: BLOOD SPECIMENOrdering Facility: [facility] Address: [address] [place] [address] Performed By: #### 2 532-0, 22716-2 ####[facility] LABCLIA [id number] [place] [address] HEMOGRAM AND PLATELon 2021 Hematocrit (Bld) [Volume fraction] 23.0 % Critically low 42.0-54.0 [facility] Comment on above: Performed By: #### T NS, PRBC #### [facility] [address] [place] [address] Dr. Benito To Hemoglobin (Bld) [Mass/Vol] 7.1 g/dL Critically low 14.0-18.0 [facility] Comment on above: Performed By: #### T NS, PRBC #### [facility] [address] [place] [address] Dr. Benito To MCH (RBC) [Entitic mass] 33.6 pg Normal 25.9-34.0 [facility] Comment on above: Performed By: #### T NS, PRBC #### [facility] [address] [place] [address] Dr. Benito To MCHC (RBC) [Mass/Vol] 30.9 g/dL Normal 29.9-35.2 [facility] Comment on above: Performed By: #### T NS, PRBC #### [facility] [address] [place] [address] Dr. Benito To MCV (RBC) [Entitic vol] 109.0 fL Critically high 80.0-94.0 [facility] Comment on above: Performed By: #### T NS, PRBC #### [facility] [address] [place] [address] Dr. Benito To PLT 108 103/ul Critically low 150-450 [facility] Comment on above: Performed By: #### T NS, PRBC #### [facility] [address] [place] [address] [address] Benito To RBC 2.11 106/ul Critically low 4.70-6.10 [facility] Comment on above: Performed By: #### T NS, PRBC #### [facility] [id number] Benito To WBC 2.0 103/ul Critically low 4.0-11.0 [facility] Comment on above: Performed By: #### T NS, PRBC #### [facility] [address] [place] [address] [address] Benito To LDH SerPl-cCncon 03-11-2022 LDH [Catalytic activity/Vol] 213 U/L Normal 135-225 [facility] Comment on above: Order Comment: Speci men Type: BLOOD SPECIMENOrdering Facility: [facility] Address: [address] [place] [address] Performed By: #### 2 532-0, 26672-9 ####[facility] LABIA [id number] [place] [address] MANUAL SCAN/DIFFon 2 ANC (SEG + BAND) MANUAL DIFF 0.56 k/uL Low 1.45-7.50 [facility] Comment on above: Order Comment: Speci men Type: BLOOD SPECIMENOrdering Facility: [facility] Address: [address] [place] [address] Performed By: #### 5 7021-8 ####[facility] LABCLIA [id number] [place] [address]#### [id number] ####[facility] LABCLIA [id number] [place] [address] [place] ANISOCYTOSIS Present Normal [facility] Comment on above: Order Comment: Speci men Type: BLOOD SPECIMENOrdering Facility: [facility] Address: [address] [place], [place] [address] Performed By: #### 5 7021-8 ####[facility] LABCLIA [id number] [place] [id number]#### [id number] ####[facility] LABCLIA [id number] [place] [address] [place] Basophils (Bld) [#/Vol] 0.03 10*3/uL Normal <0.11 [facility] Comment on above: Order Comment: Speci men Type: BLOOD SPECIMENOrdering Facility: [facility] Address: [address] [place], [place] [address] Performed By: #### 5 7021-8 ####[facility] LABCLIA [id number] [place] [address]#### [id number] ####[facility] LABCLIA [id number] [place] [address] [place] Basophils/100 WBC (Bld) 2.0 % Normal [facility] Comment on above: Order Comment: Speci men Type: BLOOD SPECIMENOrdering Facility: [facility] Address: [address] [place], [place] [address] Performed By: #### 5 7021-8 ####[facility] LABCLIA [id number] [place] [address]#### [id number] ####[facility] LABCLIA [id number] [place] [address] [place] CELLS COUNTED 100 Counted Normal [facility] Comment on above: Order Comment: Speci men Type: BLOOD SPECIMENOrdering Facility: [facility] Address: [address] [place] [address] Performed By: #### 5 7021-8 ####[facility] LABCLIA [id number] [place] [address]#### [id number] ####[facility] LABCLIA [id number] [place] [address] [place] Eosinophils (Bld) [#/Vol] 0.00 10*3/uL Normal <0.46 [facility] Comment on above: Order Comment: Speci men Type: BLOOD SPECIMENOrdering Facility: [facility] Address: [address] [place] [address] Performed By: #### 5 7021-8 ####[facility] LABCLIA [id number] [place] [address]#### [id number] ####[facility] LABCLIA [id number] [place] [address] [place] Eosinophils/100 WBC (Bld) 0.0 % Normal [facility] Comment on above: Order Comment: Speci men Type: BLOOD SPECIMENOrdering Facility: [facility] Address: [address] [place] [address] Performed By: #### 5 7021-8 ####[facility] LABCLIA [id number] [place] [address]#### [id number] ####[facility] LABCLIA [id number] [place] [address] [place] Giant platelets LM Ql (Bld) Occasional Normal [facility] Comment on above: Order Comment: Speci men Type: BLOOD SPECIMENOrdering Facility: [facility] Address: [address] [place] [address] Performed By: #### 5 7021-8 ####[facility] LABCLIA [id number] [place] [address]#### [id number] ####[facility] LABCLIA [id number] [place] [id number] [address] [place] Lymphocytes (Bld) [#/Vol] 0.77 10*3/uL Low 1.00-4.00 [facility] Comment on above: Order Comment: Speci men Type: BLOOD SPECIMENOrdering Facility: [facility] Address: [address] [place] [address] Performed By: #### 5 7021-8 ####[facility] LABCLIA [id number] [place] [address]#### [id number] ####[facility] LABCLIA [id number] [place] [address] [place] Lymphocytes/100 WBC (Bld) 45.0 % Normal [facility] Comment on above: Order Comment: Speci men Type: BLOOD SPECIMENOrdering Facility: [facility] Address: [address] [place] [address] Performed By: #### 5 7021-8 ####[facility] LABCLIA [id number] [place] [id number]#### [id number] ####[facility] LABCLIA [id number] [place] [address] [place] Monocytes (Bld) [#/Vol] 0.34 10*3/uL Normal <0.87 [facility] Comment on above: Order Comment: Speci men Type: BLOOD SPECIMENOrdering Facility: [facility] Address: [address] [place], [place] [address] Performed By: #### 5 7021-8 ####[facility] LABCLIA [id number] [place] [address]#### [id number] ####[facility] LABCLIA [id number] [place] [address] [place] Monocytes/100 WBC (Bld) 20.0 % Normal [facility] Comment on above: Order Comment: Speci men Type: BLOOD SPECIMENOrdering Facility: [facility] Address: [address] [place], [place] [address] Performed By: #### 5 7021-8 ####[facility] LABCLIA [id number] [place] [address]#### [id number] ####[facility] LABCLIA [id number] [place] [address] [place] Neutrophils/100 WBC (Bld) 33.0 % Normal [facility] Comment on above: Order Comment: Speci men Type: BLOOD SPECIMENOrdering Facility: [facility] Address: [address] [place] [address] Performed By: #### 5 7021-8 ####[facility] LABCLIA [id number] [place] [address]#### [id number] ####[facility] LABCLIA [id number] [place] [address] [place] Ovalocytes LM Ql (Bld) Few Normal [facility] Comment on above: Order Comment: Speci men Type: BLOOD SPECIMENOrdering Facility: [facility] Address: [address] [place] [address] Performed By: #### 5 7021-8 ####[facility] LABCLIA [id number] [place] [id number]#### [id number] ####[facility] LABCLIA [id number] [place] [address] [place] PLATELET ESTIMATE Decreased Normal [facility] Comment on above: Order Comment: Speci men Type: BLOOD SPECIMENOrdering Facility: [facility] Address: [address] [place], [place] [address] Performed By: #### 5 7021-8 ####[facility] LABCLIA [id number] [place] [address]#### [id number] ####[facility] LABCLIA [id number] [place] [address] [place] Polychromasia LM Ql (Bld) Slight Normal [facility] Comment on above: Order Comment: Speci men Type: BLOOD SPECIMENOrdering Facility: [facility] Address: [address] [place], [place] [address] Performed By: #### 5 7021-8 ####[facility] LABCLIA [id number] [place] [address]#### [id number] ####[facility] LABCLIA [id number] [place] [address] [place] RBC FRAGMENTS Few Abnormal None Seen [facility] Comment on above: Order Comment: Speci men Type: BLOOD SPECIMENOrdering Facility: [facility] Address: [address] [place] [address] Performed By: #### 5 7021-8 ####[facility] LABCLIA [id number] [place] [address]#### [id number] ####[facility] LABCLIA [id number] [place] [address] [place] RED CELL MORPH Reviewed: see result s of individual morphologies Normal [facility] Comment on above: Order Comment: Speci men Type: BLOOD SPECIMENOrdering Facility: [facility] Address: [address] [place] [address] Performed By: #### 5 7021-8 ####[facility] LABCLIA [id number] [place] [address]#### [id number] ####[facility] LABCLIA [id number] [place] [id number] [place] TYPE AND SCREENon 03-11-2022 TYPE AND SCREEN Negative Normal [facility] Comment on above: Performed By: #### T NS, PRBC #### [facility] [address] [place] [address] [address] Benito To PRBC LEUKOREDUCEDon 03-05-20 ABO and Rh group Nom (Bld) Cross Match Result Compatible Unit Blood Type A Pos Unit Number [id number] Status Information Transfused Product ID Red Blood Cells Product Code [id number] Cross Match Result Compatible Unit Blood Type A Pos Unit Number [id number] Status Information Transfused Product ID Red Blood Cells Product Code [id number] Normal [facility] Comment on above: Performed By: #### P RBC, TNS #### [facility] [address] [address] [address] Benito To CBC W Auto Differential pane l (Bld)on 03-04-2022 Anisocytosis Ql (Bld) Present Normal [facility] Comment on above: Order Comment: Speci men Type: BLOOD SPECIMENOrdering Facility: [facility] Address: [address] [place] [address] Performed By: #### 5 7021-8 ####[facility] LABCLIA [id number] [address] LABCLIA [id number] [place] [address] [place] Basophils/100 WBC (Bld) 2.0 % Normal [facility] Comment on above: Order Comment: Speci men Type: BLOOD SPECIMENOrdering Facility: [facility] Address: [address] [place] [address] Performed By: #### 5 7021-8 ####[facility] LABCLIA [id number] [address] LABCLIA [id number] [place] [address] [place] Dacrocytes LM Ql (Bld) Few Normal [facility] Comment on above: Order Comment: Speci men Type: BLOOD SPECIMENOrdering Facility: [facility] Address: [address] [place], [place] [address] Performed By: #### 5 7021-8 ####[facility] LABCLIA [id number] [address] LABCLIA [id number] [place] [address] [place] Differential cell count method Nom (Bld) Manual Normal [facility] Comment on above: Order Comment: Speci men Type: BLOOD SPECIMENOrdering Facility: [facility] Address: [address] [place], [place] [address] Performed By: #### 5 7021-8 ####[facility] LABCLIA [id number] [address] LABCLIA [id number] [place] [address] [place] Eosinophils (Bld) [#/Vol] 0.02 10*3/uL Normal <0.46 [facility] Comment on above: Order Comment: Speci men Type: BLOOD SPECIMENOrdering Facility: [facility] Address: [address] [place] [address] Performed By: #### 5 7021-8 ####[facility] LABCLIA [id number] [address] LABCLIA [id number] [place] [address] [place] Eosinophils/100 WBC (Bld) 1.0 % Normal [facility] Comment on above: Order Comment: Speci men Type: BLOOD SPECIMENOrdering Facility: [facility] Address: [address] [place] [address] Performed By: #### 5 7021-8 ####[facility] LABCLIA [id number] [address] LABCLIA [id number] [place] [address] [place] Erythrocyte distribution width (RBC) [Ratio] 25.2 % High 11.5-15.0 [facility] Comment on above: Order Comment: Speci men Type: BLOOD SPECIMENOrdering Facility: [facility] Address: [address] [place] [address] Performed By: #### 5 7021-8 ####[facility] LABCLIA [id number] [address] LABCLIA [id number] [place] [address] [place] Hematocrit (Bld) [Volume fraction] 24.0 % Low 39.0-51.0 [facility] Comment on above: Order Comment: Speci men Type: BLOOD SPECIMENOrdering Facility: [facility] Address: [address] [place] [address] Performed By: #### 5 7021-8 ####[facility] LABCLIA [id number] [address] LABCLIA [id number] [place] [address] [place] Hemoglobin (Bld) [Mass/Vol] 7.5 g/dL Low 13.0-17.0 [facility] Comment on above: Order Comment: Speci men Type: BLOOD SPECIMENOrdering Facility: [facility] Address: [address] [place], [place] [address] Performed By: #### 5 7021-8 ####[facility] LABCLIA [id number] [address] LABCLIA [id number] [place] [address] [place] Lymphocytes (Bld) [#/Vol] 0.76 10*3/uL Low 1.00-4.00 [facility] Comment on above: Order Comment: Speci men Type: BLOOD SPECIMENOrdering Facility: [facility] Address: [address] [place], [place] [address] Performed By: #### 5 7021-8 ####[facility] LABCLIA [id number] [address] LABCLIA [id number] [place] [address] [place] Lymphocytes/100 WBC (Bld) 38.0 % Normal [facility] Comment on above: Order Comment: Speci men Type: BLOOD SPECIMENOrdering Facility: [facility] Address: [address] [place], [place] [address] Performed By: #### 5 7021-8 ####[facility] LABCLIA [id number] [address] LABCLIA [id number] [place] [address] [place] MCH (RBC) [Entitic mass] 32.3 pg Normal 26.0-34.0 [facility] Comment on above: Order Comment: Speci men Type: BLOOD SPECIMENOrdering Facility: [facility] Address: [address] [place], [place] [address] Performed By: #### 5 7021-8 ####[facility] LABCLIA [id number] [address] LABCLIA [id number] [place] [address] [place] MCHC (RBC) [Mass/Vol] 31.3 g/dL Normal 30.5-36.0 [facility] Comment on above: Order Comment: Speci men Type: BLOOD SPECIMENOrdering Facility: [facility] Address: [address] [place], [place] [address] Performed By: #### 5 7021-8 ####[facility] LABCLIA [id number] [address] LABCLIA [id number] [place] [address] [place] MCV (RBC) [Entitic vol] 103.4 fL High 80.0-100.0 [facility] Comment on above: Order Comment: Speci men Type: BLOOD SPECIMENOrdering Facility: [facility] Address: [address] [place], [place] [address] Performed By: #### 5 7021-8 ####[facility] LABCLIA [id number] [address] LABCLIA [id number] [place] [address] [place] Neutrophils (Bld) [#/Vol] 0.86 10*3/uL Low 1.45-7.50 [facility] Comment on above: Order Comment: Speci men Type: BLOOD SPECIMENOrdering Facility: [facility] Address: [address] [place], [place] [address] Performed By: #### 5 7021-8 ####[facility] LABCLIA [id number] [address] LABCLIA [id number] [place] [address] [place] Neutrophils/100 WBC (Bld) 43.0 % Normal [facility] Comment on above: Order Comment: Speci men Type: BLOOD SPECIMENOrdering Facility: [facility] Address: [address] [place], [place] [address] Performed By: #### 5 7021-8 ####[facility] LABCLIA [id number] [address] LABCLIA [id number] [place] [address] [place] Nucleated RBC/100 WBC (Bld) [Ratio] 0.0 /100 WBC Normal [facility] Comment on above: Order Comment: Speci men Type: BLOOD SPECIMENOrdering Facility: [facility] Address: [address] [place], [place] [address] Performed By: #### 5 7021-8 ####[facility] LABCLIA [id number] [address] LABCLIA [id number] [place] [address] [place] Ovalocytes LM Ql (Bld) Few Normal [facility] Comment on above: Order Comment: Speci men Type: BLOOD SPECIMENOrdering Facility: [facility] Address: [address] [place], [place] [address] Performed By: #### 5 7021-8 ####[facility] LABCLIA [id number] [address] LABCLIA [id number] [place] [address] [place] PLATELET ESTIMATE Decreased Normal [facility] Comment on above: Order Comment: Speci men Type: BLOOD SPECIMENOrdering Facility: [facility] Address: [address] [place] [address] Performed By: #### 5 7021-8 ####[facility] LABCLIA [id number] [address] LABCLIA [id number] [place] [address] [place] Platelet mean volume (Bld) [Entitic vol] 12.6 fL Normal 9.0-12.7 [facility] Comment on above: Order Comment: Speci men Type: BLOOD SPECIMENOrdering Facility: [facility] Address: [address] [place], [place] [address] Performed By: #### 5 7021-8 ####[facility] LABCLIA [id number] [address] LABCLIA [id number] [place] [address] [place] Platelets (Bld) [#/Vol] 43 10*3/uL Low 150-400 [facility] Comment on above: Order Comment: Speci men Type: BLOOD SPECIMENOrdering Facility: [facility] Address: [address] [place], [place] [address] Result Comment: Samp le checked for clot Performed By: #### 5 7021-8 ####[facility] LABCLIA [id number] [address] LABCLIA [id number] [place] [address] [place] Polychromasia LM Ql (Bld) Slight Normal [facility] Comment on above: Order Comment: Speci men Type: BLOOD SPECIMENOrdering Facility: [facility] Address: [address] [place] [address] Performed By: #### 5 7021-8 ####[facility] LABCLIA [id number] [address] LABCLIA [id number] [place] [address] [place] RBC (Bld) [#/Vol] 2.32 10*6/uL Low 4.20-6.00 [facility] Comment on above: Order Comment: Speci men Type: BLOOD SPECIMENOrdering Facility: [facility] Address: [address] [place], [place] [address] Performed By: #### 5 7021-8 ####[facility] LABCLIA [id number] [address] LABCLIA [id number] [place] [address] [place] RBC FRAGMENTS Few Abnormal None Seen [facility] Comment on above: Order Comment: Speci men Type: BLOOD SPECIMENOrdering Facility: [facility] Address: [address] [place], [place] [address] Performed By: #### 5 7021-8 ####[facility] LABCLIA [id number] [place] [address] LABCLIA [id number] [place] [address] [place] RED CELL MORPH Reviewed: see result s of individual morphologies Normal [facility] Comment on above: Order Comment: Speci men Type: BLOOD SPECIMENOrdering Facility: [facility] Address: [address] [place] [address] Performed By: #### 5 7021-8 ####[facility] LABCLIA [id number] [address] LABCLIA [id number] [place] [address] [place] WAM - ABS BASO 0.04 k/uL Normal <0.11 [facility] Comment on above: Order Comment: Speci men Type: BLOOD SPECIMENOrdering Facility: [facility] Address: [address] [place], [place] [address] Performed By: #### 5 7021-8 ####[facility] LABCLIA [id number] [address] LABCLIA [id number] [place] [address] [place] WAM - ABS MONO 0.32 k/uL Normal <0.87 [facility] Comment on above: Order Comment: Speci men Type: BLOOD SPECIMENOrdering Facility: [facility] Address: [address] [place] [address] Performed By: #### 5 7021-8 ####[facility] LABCLIA [id number] [address] LABCLIA [id number] [place] [address] [place] WAM - MONO% 16.0 % Normal [facility] Comment on above: Order Comment: Speci men Type: BLOOD SPECIMENOrdering Facility: [facility] Address: [address] [place] [address] Performed By: #### 5 7021-8 ####[facility] LABCLIA [id number] [place] [id number] LABCLIA [id number] [place] [address] [place] WAM ABSOLUTE NRBC <0.01 Normal <0.01 [facility] Comment on above: Order Comment: Speci men Type: BLOOD SPECIMENOrdering Facility: [facility] Address: [address] [place] [address] Performed By: #### 5 7021-8 ####[facility] LABCLIA [id number] [address] LABCLIA [id number] [place] [address] [place] WBC (Bld) [#/Vol] 2.00 10*3/uL Low 3.70-11.00 [facility] Comment on above: Order Comment: Speci men Type: BLOOD SPECIMENOrdering Facility: [facility] Address: [address] [place] [address] Result Comment: Samp le checked for clot Performed By: #### 5 7021-8 ####[facility] LABCLIA [id number] [place] [id number] LABCLIA [id number] [place] [address] [place] Comprehensive metabolic 2000 panelon 03-04-2022 Albumin [Mass/Vol] 3.8 g/dL Low 3.9-4.9 [facility] Comment on above: Order Comment: Speci men Type: BLOOD SPECIMENOrdering Facility: [facility] Address: [address] [place] [address] Performed By: #### 2 4323-8, 2532-0 ####[facility] LABCLIA [id number] [place] [address] ALP [Catalytic activity/Vol] 68 U/L Normal 38-113 [facility] Comment on above: Order Comment: Speci men Type: BLOOD SPECIMENOrdering Facility: [facility] Address: [address] [place] [address] Performed By: #### 2 4323-8, 2532-0 ####[facility] LABCLIA [id number] [place] [address] ALT [Catalytic activity/Vol] 21 U/L Normal 10-54 [facility] Comment on above: Order Comment: Speci men Type: BLOOD SPECIMENOrdering Facility: [facility] Address: [address] [place] [address] Performed By: #### 2 4323-8, 2531-0 ####[facility] LABCLIA [id number] [place] [address] Anion gap [Moles/Vol] 10 mmol/L Normal 9-18 [facility] Comment on above: Order Comment: Speci men Type: BLOOD SPECIMENOrdering Facility: [facility] Address: [address] [place] [address] Performed By: #### 2 4323-8, 2532-0 ####[facility] LABCLIA [id number] [place] [address] AST [Catalytic activity/Vol] 11 U/L Low 14-40 [facility] Comment on above: Order Comment: Speci men Type: BLOOD SPECIMENOrdering Facility: [facility] Address: [address] [place], [place] [address] Performed By: #### 2 4323-8, 2532-0 ####[facility] LABCLIA [id number] [place] [address] Bilirubin [Mass/Vol] 0.8 mg/dL Normal 0.2-1.3 [facility] Comment on above: Order Comment: Speci men Type: BLOOD SPECIMENOrdering Facility: [facility] Address: [address] Performed By: #### 2 432-8, 2531-0 ####[facility] LABCLIA [id number] [place] [address] Calcium [Mass/Vol] 8.8 mg/dL Normal 8.5-10.2 [facility] Comment on above: Order Comment: Speci men Type: BLOOD SPECIMENOrdering Facility: [facility] Address: [address] [place], [place] [address] Performed By: #### 2 4328, 2531-0 ####[facility] LABCLIA [id number] [place] [address] Chloride [Moles/Vol] 106 mmol/L High 97-105 [facility] Comment on above: Order Comment: Speci men Type: BLOOD SPECIMENOrdering Facility: [facility] Address: [address] Performed By: #### 2 [address], 2531-0 ####[facility] LABCLIA [id number] [place] [address] CO2 [Moles/Vol] 27 mmol/L Normal 22-30 [facility] Comment on above: Order Comment: Speci men Type: BLOOD SPECIMENOrdering Facility: [facility] Address: [address] Performed By: #### 2 4323-8, 2531-0 ####[facility] LABCLIA [id number] [place] [address] Creatinine [Mass/Vol] 1.73 mg/dL High 0.73-1.22 [facility] Comment on above: Order Comment: Speci men Type: BLOOD SPECIMENOrdering Facility: [facility] Address: [address] Performed By: #### 2 43210-02, ####[facility] LABCLIA [id number] [place] [address] ESTIMATED GLOMERULAR FILTRATION RATE 39 mL/min/1.73m??? Low >=60 [facility] Comment on above: Order Comment: Davi avendaño Type: BLOOD SPECIMENOrdering Facility: [facility] Address: [address] [place] [address] Result Comment: Faye mated Glomerular Filtration Rate (eGFR) is calculated using the 2020 CKD-EPI creatinine equation. This equation utilizes serum creatinine, sex, and age as parameters. The creatinine assay has traceable calibration to isotope dilution-mass spectrometry. Refer to KDIGO guidelines for clinical interpretation. In patients with unstable renal function, e.g. those with acute kidney injury, the eGFR may not accurately reflect actual GFR. Performed By: #### 2 4328, ####[facility] LABIA [id number] [place] [address] Glucose [Mass/Vol] 154 mg/dL High 74-99 [facility] Comment on above: Order Comment: Speciman avendaño Type: BLOOD SPECIMENOrdering Facility: [facility] Address: [address] [place] [address] Result Comment: The [place] [employer] (ADA) provides guidance for cutoff values for fasting glucose and random glucose. The ADA defines fasting as no caloric intake for at least 8 hours. Fasting plasma glucose results between 100 to 125 mg/dL indicate increased risk for diabetes (prediabetes).Fasting plasma glucose results greater than or equal to 126 mg/dL meet the criteria for diagnosis of diabetes. In the absence of unequivocal hyperglycemia, results should be confirmed by repeat testing. In a patient with classic symptoms of hyperglycemia or hyperglycemic crisis, random plasma glucose results greater than or equal to 200 mg/dL meet the criteria for diagnosis of diabetes.Reference: Standards of Medical Care in Diabetes 2016, [employer] [place] [employer]. Diabetes Care. 2016.39(Suppl 1). Performed By: #### 2 4323-8, 0 ####[facility] LABCLIA [id number] [place] [address] Potassium [Moles/Vol] 4.2 mmol/L Normal 3.7-5.1 [facility] Comment on above: Order Comment: Speci men Type: BLOOD SPECIMENOrdering Facility: [facility] Address: [address] [place] [address] Performed By: #### 2 4323-8, 2532-0 ####[facility] LABCLIA [id number] [place] [address] Protein [Mass/Vol] 5.8 g/dL Low 6.3-8.0 [facility] Comment on above: Order Comment: Speci men Type: BLOOD SPECIMENOrdering Facility: [facility] Address: [address] [place] [address] Performed By: #### 2 4323-8, 2531-0 ####[facility] LABIA [id number] [place] [address] Sodium [Moles/Vol] 143 mmol/L Normal 136-144 [facility] Comment on above: Order Comment: Speci men Type: BLOOD SPECIMENOrdering Facility: [facility] Address: [address] [place] [address] Performed By: #### 2 4323-8, 2531-0 ####[facility] LABIA [id number] [place] [address] Urea nitrogen [Mass/Vol] 23 mg/dL Normal 9-24 [facility] Comment on above: Order Comment: Speci men Type: BLOOD SPECIMENOrdering Facility: [facility] Address: [address] [place], [place] [address] Performed By: #### 2 4323-8, 2531-0 ####[facility] LABIA [id number] [place] [address] LDH SerPl-cCncon 03-04-2022 LDH [Catalytic activity/Vol] 216 U/L Normal 135-225 [facility] Comment on above: Order Comment: Speci men Type: BLOOD SPECIMENOrdering Facility: [facility] Address: [address] [place] [address] Result Comment: Hemo lysis present. The origin of the hemolysis, in vitro versus an in vivo hemolytic process, cannot be distinguished via this assay alone. In vitro hemolysis may lead to non-physiological (spurious) elevation in lactate dehydrogenase (LDH) results. Theresult should be interpreted in context of the clinical setting and other test results. Suggest reorder as clinically indicated. Performed By: #### 2 4323-8, 2532-0 ####[facility] LABCLIA [id number] [place] [address] CBC W Auto Differential pane l (Bld)on 02-28-2022 Basophils (Bld) [#/Vol] 10*3/uL Normal <0.11 [facility] Comment on above: Order Comment: Speci men Type: BLOOD SPECIMENOrdering Facility: [facility] Address: [address] [place] [address] Performed By: #### 5 7021-8 ####[facility] LABCLIA [id number] [place] [address] Basophils/100 WBC (Bld) 0.4 % Normal [facility] Comment on above: Order Comment: Speci men Type: BLOOD SPECIMENOrdering Facility: [facility] Address: [address] [place] [address] Performed By: #### 5 7021-8 ####[facility] LABCLIA [id number] [place] [address] Differential cell count method Nom (Bld) Auto Normal [facility] Comment on above: Order Comment: Speci men Type: BLOOD SPECIMENOrdering Facility: [facility] Address: [address] [place] [address] Performed By: #### 5 7021-8 ####[facility] LABCLIA [id number] [place] [address] Eosinophils (Bld) [#/Vol] 10*3/uL Normal <0.46 [facility] Comment on above: Order Comment: Speci men Type: BLOOD SPECIMENOrdering Facility: [facility] Address: [address] [place] [address] Performed By: #### 5 7021-8 ####[facility] LABCLIA [id number] [place] [address] Eosinophils/100 WBC (Bld) 0.0 % Normal [facility] Comment on above: Order Comment: Speci men Type: BLOOD SPECIMENOrdering Facility: [facility] Address: [address] [place] [address] Performed By: #### 5 7021-8 ####[facility] LABCLIA [id number] [place] [address] Erythrocyte distribution width (RBC) [Ratio] 24.4 % High 11.5-15.0 [facility] Comment on above: Order Comment: Speci men Type: BLOOD SPECIMENOrdering Facility: [facility] Address: [address] [place] [address] Performed By: #### 5 7021-8 ####[facility] LABCLIA [id number] [place] [address] Hematocrit (Bld) [Volume fraction] 20.6 % Low 39.0-51.0 [facility] Comment on above: Order Comment: Speci men Type: BLOOD SPECIMENOrdering Facility: [facility] Address: [address] [place], [place] [address] Performed By: #### 5 7021-8 ####[facility] LABCLIA [id number] [place] [address] Hemoglobin (Bld) [Mass/Vol] 6.6 g/dL Low 13.0-17.0 [facility] Comment on above: Order Comment: Speci men Type: BLOOD SPECIMENOrdering Facility: [facility] Address: [address] [place] [address] Performed By: #### 5 7021-8 ####[facility] LABCLIA [id number] [place] [address] IMMATURE GRAN % 1.3 % Normal [facility] Comment on above: Order Comment: Speci men Type: BLOOD SPECIMENOrdering Facility: [facility] Address: [address] [place] [address] Performed By: #### 5 7021-8 ####[facility] LABCLIA [id number] [place] [address] IMMATURE GRAN ABS 0.03 k/uL Normal <0.10 [facility] Comment on above: Order Comment: Speci men Type: BLOOD SPECIMENOrdering Facility: [facility] Address: [address] [place] [address] Performed By: #### 5 7021-8 ####[facility] LABIA [id number] [place] [address] Lymphocytes (Bld) [#/Vol] 0.73 10*3/uL Low 1.00-4.00 [facility] Comment on above: Order Comment: Speci men Type: BLOOD SPECIMENOrdering Facility: [facility] Address: [address] [place] [address] Performed By: #### 5 7021-8 ####[facility] LABIA [id number] [place] [address] Lymphocytes/100 WBC (Bld) 32.4 % Normal [facility] Comment on above: Order Comment: Speci men Type: BLOOD SPECIMENOrdering Facility: [facility] Address: [address] [place] [address] Performed By: #### 5 7021-8 ####[facility] LABIA [id number] [place] [address] MCH (RBC) [Entitic mass] 34.9 pg High 26.0-34.0 [facility] Comment on above: Order Comment: Speci men Type: BLOOD SPECIMENOrdering Facility: [facility] Address: [address] [place] [address] Performed By: #### 5 7021-8 ####[facility] LABIA [id number] [place] [address] MCHC (RBC) [Mass/Vol] 32.0 g/dL Normal 30.5-36.0 [facility] Comment on above: Order Comment: Speci men Type: BLOOD SPECIMENOrdering Facility: [facility] Address: [address] [place] [address] Performed By: #### 5 7021-8 ####[facility] LABIA [id number] [place] [address] MCV (RBC) [Entitic vol] 109.0 fL High 80.0-100.0 [facility] Comment on above: Order Comment: Speci men Type: BLOOD SPECIMENOrdering Facility: [facility] Address: [address] [place] [address] Performed By: #### 5 7021-8 ####[facility] LABIA [id number] [place] [address] Monocytes (Bld) [#/Vol] 0.35 10*3/uL Normal <0.87 [facility] Comment on above: Order Comment: Speci men Type: BLOOD SPECIMENOrdering Facility: [facility] Address: [address] [place] [address] Performed By: #### 5 7021-8 ####[facility] LABCLIA [id number] [place] [address] Monocytes/100 WBC (Bld) 15.6 % Normal [facility] Comment on above: Order Comment: Speci men Type: BLOOD SPECIMENOrdering Facility: [facility] Address: [address] [place] [address] Performed By: #### 5 7021-8 ####[facility] LABCLIA [id number] [place] [address] Neutrophils (Bld) [#/Vol] 1.13 10*3/uL Low 1.45-7.50 [facility] Comment on above: Order Comment: Speci men Type: BLOOD SPECIMENOrdering Facility: [facility] Address: [address] [place] [address] Performed By: #### 5 7021-8 ####[facility] LABCLIA [id number] [place] [address] Neutrophils/100 WBC (Bld) 50.3 % Normal [facility] Comment on above: Order Comment: Speci men Type: BLOOD SPECIMENOrdering Facility: [facility] Address: [address] [place] [address] Performed By: #### 5 7021-8 ####[facility] LABCLIA [id number] [place] [address] Nucleated RBC (Bld) [#/Vol] 10*3/uL Normal <0.01 [facility] Comment on above: Order Comment: Speci men Type: BLOOD SPECIMENOrdering Facility: [facility] Address: [address] [place] [address] Performed By: #### 5 7021-8 ####[facility] LABCLIA [id number] [place] [address] Nucleated RBC/100 WBC (Bld) [Ratio] 0.0 /100 WBC Normal [facility] Comment on above: Order Comment: Speci men Type: BLOOD SPECIMENOrdering Facility: [facility] Address: [address] [place] [address] Performed By: #### 5 7021-8 ####[facility] LABCLIA [id number] [place] [address] Platelet mean volume (Bld) [Entitic vol] 14.1 fL High 9.0-12.7 [facility] Comment on above: Order Comment: Speci men Type: BLOOD SPECIMENOrdering Facility: [facility] Address: [address] [place] [address] Performed By: #### 5 7021-8 ####[facility] LABIA [id number] [place] [address] Platelets (Bld) [#/Vol] 44 10*3/uL Low 150-400 [facility] Comment on above: Order Comment: Speci men Type: BLOOD SPECIMENOrdering Facility: [facility] Address: [address] [place] [address] Result Comment: [facility] le checked for clot Performed By: #### 5 7021-8 ####[facility] LABIA [id number] [place] [address] RBC (Bld) [#/Vol] 1.89 10*6/uL Low 4.20-6.00 [facility] Comment on above: Order Comment: Speci men Type: BLOOD SPECIMENOrdering Facility: [facility] Address: [address] [place] [address] Performed By: #### 5 7021-8 ####[facility] LABIA [id number] [place] [address] WBC (Bld) [#/Vol] 2.25 10*3/uL Low 3.70-11.00 [facility] Comment on above: Order Comment: Speci men Type: BLOOD SPECIMENOrdering Facility: [facility] Address: [address] [place] [address] Performed By: #### 5 7021-8 ####[facility] LABIA [id number] [place] [address] CNPNon 02-28-2022 CNPN Normal [facility] Comprehensive metabolic 2000 panelon 02-28-2022 Albumin [Mass/Vol] 3.9 g/dL Normal 3.9-4.9 [facility] Comment on above: Order Comment: Speci men Type: BLOOD SPECIMENOrdering Facility: [facility] Address: [address] [place] [address] Performed By: #### 2 532-0, 15278-6 ####[facility] LABCLIA [id number] [place] [address] ALP [Catalytic activity/Vol] 67 U/L Normal 38-113 [facility] Comment on above: Order Comment: Speci men Type: BLOOD SPECIMENOrdering Facility: [facility] Address: [address] [place] [address] Performed By: #### 2 532-0, ####[facility] LABCLIA [id number] [place] [address] ALT [Catalytic activity/Vol] 28 U/L Normal 10-54 [facility] Comment on above: Order Comment: Speci men Type: BLOOD SPECIMENOrdering Facility: [facility] Address: [address] [place] [address] Performed By: #### 2 532-0, ####[facility] LABCLIA [id number] [place] [address] Anion gap [Moles/Vol] 10 mmol/L Normal 9-18 [facility] Comment on above: Order Comment: Speci men Type: BLOOD SPECIMENOrdering Facility: [facility] Address: [address] [place] [address] Performed By: #### 2 532-0, ####[facility] LABCLIA [id number] [place] [address] AST [Catalytic activity/Vol] 11 U/L Low 14-40 [facility] Comment on above: Order Comment: Speci men Type: BLOOD SPECIMENOrdering Facility: [facility] Address: [address] [place] [address] Performed By: #### 2 532-0, ####[facility] LABCLIA [id number] [place] [address] Bilirubin [Mass/Vol] 0.8 mg/dL Normal 0.2-1.3 [facility] Comment on above: Order Comment: Speci men Type: BLOOD SPECIMENOrdering Facility: [facility] Address: [address] [place], [place] [address] Performed By: #### 2 532-0, ####[facility] LABCLIA [id number] [place] [address] Calcium [Mass/Vol] 8.6 mg/dL Normal 8.5-10.2 [facility] Comment on above: Order Comment: Speci men Type: BLOOD SPECIMENOrdering Facility: [facility] Address: [address] [place] [address] Performed By: #### 2 532-0, ####[facility] LABCLIA [id number] [place] [address] Chloride [Moles/Vol] 106 mmol/L High 97-105 [facility] Comment on above: Order Comment: Speci men Type: BLOOD SPECIMENOrdering Facility: [facility] Address: [address] [place] [address] Performed By: #### 2 532-0, ####[facility] LABCLIA [id number] [place] [address] CO2 [Moles/Vol] 27 mmol/L Normal 22-30 [facility] Comment on above: Order Comment: Speci men Type: BLOOD SPECIMENOrdering Facility: [facility] Address: [address] [place], [place] [address] Performed By: #### 2 532-0, ####[facility] LABCLIA [id number] [place] [address] Creatinine [Mass/Vol] 1.94 mg/dL High 0.73-1.22 [facility] Comment on above: Order Comment: Speci men Type: BLOOD SPECIMENOrdering Facility: [facility] Address: [address] [place] [address] Performed By: #### 2 532-0, 42233-2 ####[facility] LABCLIA [id number] [place] [address] ESTIMATED GLOMERULAR FILTRATION RATE 34 mL/min/1.73m??? Low >=60 [facility] Comment on above: Order Comment: Davi avendaño Type: BLOOD SPECIMENOrdering Facility: [facility] Address: [address] [place] [address] Result Comment: Faye mated Glomerular Filtration Rate (eGFR) is calculated using the 2020 CKD-EPI creatinine equation. This equation utilizes serum creatinine, sex, and age as parameters. The creatinine assay has traceable calibration to isotope dilution-mass spectrometry. Refer to KDIGO guidelines for clinical interpretation. In patients with unstable renal function, e.g. those with acute kidney injury, the eGFR may not accurately reflect actual GFR. Performed By: #### 2 532-0, 04152-7 ####[facility] LABCLIA [id number] [place] [address] Glucose [Mass/Vol] 154 mg/dL High 74-99 [facility] Comment on above: Order Comment: Davi avendaño Type: BLOOD SPECIMENOrdering Facility: [facility] Address: [address] [address] Result Comment: The [place] [employer] (ADA) provides guidance for cutoff values for fasting glucose and random glucose. The ADA defines fasting as no caloric intake for at least 8 hours. Fasting plasma glucose results between 100 to 125 mg/dL indicate increased risk for diabetes (prediabetes).Fasting plasma glucose results greater than or equal to 126 mg/dL meet the criteria for diagnosis of diabetes. In the absence of unequivocal hyperglycemia, results should be confirmed by repeat testing. In a patient with classic symptoms of hyperglycemia or hyperglycemic crisis, random plasma glucose results greater than or equal to 200 mg/dL meet the criteria for diagnosis of diabetes.Reference: Standards of Medical Care in Diabetes 2016, [place] [employer]. Diabetes Care. 2016.39(Suppl 1). Performed By: #### 2 532-0, 99255-5 ####[facility] LABCLIA [id number] [place] [address] Potassium [Moles/Vol] 4.1 mmol/L Normal 3.7-5.1 [facility] Comment on above: Order Comment: Speci men Type: BLOOD SPECIMENOrdering Facility: [facility] Address: [address] [place] [address] Performed By: #### 2 532-0, 98171-7 ####[facility] LABCLIA [id number] [place] [address] Protein [Mass/Vol] 5.8 g/dL Low 6.3-8.0 [facility] Comment on above: Order Comment: Speci men Type: BLOOD SPECIMENOrdering Facility: [facility] Address: [address] [place] [address] Performed By: #### 2 532-0, ####[facility] LABIA [id number] [place] [address] Sodium [Moles/Vol] 143 mmol/L Normal 136-144 [facility] Comment on above: Order Comment: Speci men Type: BLOOD SPECIMENOrdering Facility: [facility] Address: [address] [place] [address] Performed By: #### 2 532-0, ####[facility] LABIA [id number] [place] [address] Urea nitrogen [Mass/Vol] 26 mg/dL High 9-24 [facility] Comment on above: Order Comment: Speci men Type: BLOOD SPECIMENOrdering Facility: [facility] Address: [address] [place] [address] Performed By: #### 2 532-0, 35244-2 ####[facility] LABIA [id number] [place] [address] HEMOGLOBIN AND HEMATOCRITon 02-28-2022 Hematocrit (Bld) [Volume fraction] 20.3 % Critically low 42.0-54.0 [facility] Comment on above: Performed By: #### H H #### [facility] [address] [address] [address] Benito To Hemoglobin (Bld) [Mass/Vol] 6.7 g/dL Critically low 14.0-18.0 [facility] Comment on above: Performed By: #### H H #### [facility] [address] [address] [address] Benito To LDH SerPl-cCncon 02-28-2022 LDH [Catalytic activity/Vol] 207 U/L Normal 135-225 [facility] Comment on above: Order Comment: Speci men Type: BLOOD SPECIMENOrdering Facility: [facility] Address: [address] [place] [address] Performed By: #### 2 532-0, 89602-2 ####[facility] LABCLIA [id number] [place] [address] TYPE AND SCREENon 02-28-2022 TYPE AND SCREEN Negative Normal [facility] Comment on above: Performed By: #### P RBC, TNS #### [facility] [address] [address] [address] Benito To CBC W Auto Differential pane l (Bld)on 02-25-2022 Basophils (Bld) [#/Vol] 10*3/uL Normal <0.11 [facility] Comment on above: Order Comment: Speci men Type: BLOOD SPECIMENOrdering Facility: [facility] Address: [address] [place] [address] Performed By: #### 5 7021-8 ####[facility] LABCLIA [id number] [place] [address] Basophils/100 WBC (Bld) 0.3 % Normal [facility] Comment on above: Order Comment: Speci men Type: BLOOD SPECIMENOrdering Facility: [facility] Address: [address] [place] [address] Performed By: #### 5 7021-8 ####[facility] LABCLIA [id number] [place] [address] Differential cell count method Nom (Bld) Auto Normal [facility] Comment on above: Order Comment: Speci men Type: BLOOD SPECIMENOrdering Facility: [facility] Address: [address] [place] [address] Performed By: #### 5 7021-8 ####[facility] LABCLIA [id number] [place] [address] Eosinophils (Bld) [#/Vol] 10*3/uL Normal <0.46 [facility] Comment on above: Order Comment: Speci men Type: BLOOD SPECIMENOrdering Facility: [facility] Address: [address] [place] [address] Performed By: #### 5 7021-8 ####[facility] LABIA [id number] [place] [address] Eosinophils/100 WBC (Bld) 0.3 % Normal [facility] Comment on above: Order Comment: Speci men Type: BLOOD SPECIMENOrdering Facility: [facility] Address: [address] [place] [address] Performed By: #### 5 7021-8 ####[facility] LABCLIA [id number] [place] [address] Erythrocyte distribution width (RBC) [Ratio] 24.2 % High 11.5-15.0 [facility] Comment on above: Order Comment: Speci men Type: BLOOD SPECIMENOrdering Facility: [facility] Address: [address] [place] [address] Performed By: #### 5 7021-8 ####[facility] LABIA [id number] [place] [address] Hematocrit (Bld) [Volume fraction] 22.8 % Low 39.0-51.0 [facility] Comment on above: Order Comment: Speci men Type: BLOOD SPECIMENOrdering Facility: [facility] Address: [address] [place] [address] Performed By: #### 5 7021-8 ####[facility] LABCLIA [id number] [place] [address] Hemoglobin (Bld) [Mass/Vol] 7.1 g/dL Low 13.0-17.0 [facility] Comment on above: Order Comment: Speci men Type: BLOOD SPECIMENOrdering Facility: [facility] Address: [address] [place] [address] Performed By: #### 5 7021-8 ####[facility] LABCLIA [id number] [place] [address] IMMATURE GRAN % 1.6 % Normal [facility] Comment on above: Order Comment: Speci men Type: BLOOD SPECIMENOrdering Facility: [facility] Address: [address] [place] [address] Performed By: #### 5 7021-8 ####[facility] LABCLIA [id number] [place] [address] IMMATURE GRAN ABS 0.05 k/uL Normal <0.10 [facility] Comment on above: Order Comment: Speci men Type: BLOOD SPECIMENOrdering Facility: [facility] Address: [address] [place] [address] Performed By: #### 5 7021-8 ####[facility] LABCLIA [id number] [place] [address] Lymphocytes (Bld) [#/Vol] 1.00 10*3/uL Normal 1.00-4.00 [facility] Comment on above: Order Comment: Speci men Type: BLOOD SPECIMENOrdering Facility: [facility] Address: [address] [place] [address] Performed By: #### 5 7021-8 ####[facility] LABCLIA [id number] [place] [address] Lymphocytes/100 WBC (Bld) 32.8 % Normal [facility] Comment on above: Order Comment: Speci men Type: BLOOD SPECIMENOrdering Facility: [facility] Address: [address] [place] [address] Performed By: #### 5 7021-8 ####[facility] LABCLIA [id number] [place] [address] MCH (RBC) [Entitic mass] 33.5 pg Normal 26.0-34.0 [facility] Comment on above: Order Comment: Speci men Type: BLOOD SPECIMENOrdering Facility: [facility] Address: [address] [place] [address] Performed By: #### 5 7021-8 ####[facility] LABIA [id number] [place] [address] MCHC (RBC) [Mass/Vol] 31.1 g/dL Normal 30.5-36.0 [facility] Comment on above: Order Comment: Speci men Type: BLOOD SPECIMENOrdering Facility: [facility] Address: [address] [place] [address] Performed By: #### 5 7021-8 ####[facility] LABIA [id number] [place] [address] MCV (RBC) [Entitic vol] 107.5 fL High 80.0-100.0 [facility] Comment on above: Order Comment: Speci men Type: BLOOD SPECIMENOrdering Facility: [facility] Address: [address] [place], [place] [address] Performed By: #### 5 7021-8 ####[facility] LABIA [id number] [place] [address] Monocytes (Bld) [#/Vol] 0.47 10*3/uL Normal <0.87 [facility] Comment on above: Order Comment: Speci men Type: BLOOD SPECIMENOrdering Facility: [facility] Address: [address] [place], [place] [address] Performed By: #### 5 7021-8 ####[facility] LABCLIA [id number] [place] [address] Monocytes/100 WBC (Bld) 15.4 % Normal [facility] Comment on above: Order Comment: Speci men Type: BLOOD SPECIMENOrdering Facility: [facility] Address: [address] [place] [address] Performed By: #### 5 7021-8 ####[facility] LABCLIA [id number] [place] [address] Neutrophils (Bld) [#/Vol] 1.51 10*3/uL Normal 1.45-7.50 [facility] Comment on above: Order Comment: Speci men Type: BLOOD SPECIMENOrdering Facility: [facility] Address: [address] [place] [address] Performed By: #### 5 7021-8 ####[facility] LABCLIA [id number] [place] [address] Neutrophils/100 WBC (Bld) 49.6 % Normal [facility] Comment on above: Order Comment: Speci men Type: BLOOD SPECIMENOrdering Facility: [facility] Address: [address] [place] [address] Performed By: #### 5 7021-8 ####[facility] LABCLIA [id number] [place] [address] Nucleated RBC (Bld) [#/Vol] 10*3/uL Normal <0.01 [facility] Comment on above: Order Comment: Speci men Type: BLOOD SPECIMENOrdering Facility: [facility] Address: [address] [place], [place] [address] Performed By: #### 5 7021-8 ####[facility] LABCLIA [id number] [place] [address] Nucleated RBC/100 WBC (Bld) [Ratio] 0.0 /100 WBC Normal [facility] Comment on above: Order Comment: Speci men Type: BLOOD SPECIMENOrdering Facility: [facility] Address: [address] [place] [address] Performed By: #### 5 7021-8 ####[facility] LABIA [id number] [place] [address] Platelet mean volume (Bld) [Entitic vol] 14.2 fL High 9.0-12.7 [facility] Comment on above: Order Comment: Speci men Type: BLOOD SPECIMENOrdering Facility: [facility] Address: [address] [place] [address] Performed By: #### 5 7021-8 ####[facility] LABIA [id number] [place] [address] Platelets (Bld) [#/Vol] 64 10*3/uL Low 150-400 [facility] Comment on above: Order Comment: Speci men Type: BLOOD SPECIMENOrdering Facility: [facility] Address: [address] [place] [address] Result Comment[facility] Performed By: #### 5 7021-8 ####[facility] LABIA [id number] [place] [address] RBC (Bld) [#/Vol] 2.12 10*6/uL Low 4.20-6.00 [facility] Comment on above: Order Comment: Speci men Type: BLOOD SPECIMENOrdering Facility: [facility] Address: [address] [place], [place] [address] Performed By: #### 5 7021-8 ####[facility] LABIA [id number] [place] [address] WBC (Bld) [#/Vol] 3.05 10*3/uL Low 3.70-11.00 [facility] Comment on above: Order Comment: Speci men Type: BLOOD SPECIMENOrdering Facility: [facility] Address: [address] [place] [address] Performed By: #### 5 7021-8 ####[facility] LABCLIA [id number] [place] [address] Comprehensive metabolic 2000 panelon 02-25-2022 Albumin [Mass/Vol] 3.8 g/dL Low 3.9-4.9 [facility] Comment on above: Order Comment: Speci men Type: BLOOD SPECIMENOrdering Facility: [facility] Address: [address] [place] [address] Performed By: #### 2 532-0, 92137-4 ####[facility] LABCLIA [id number] [place] [address] ALP [Catalytic activity/Vol] 69 U/L Normal 38-113 [facility] Comment on above: Order Comment: Speci men Type: BLOOD SPECIMENOrdering Facility: [facility] Address: [address] [place] [address] Performed By: #### 2 532-0, 32027-4 ####[facility] LABIA [id number] [place] [address] ALT [Catalytic activity/Vol] 33 U/L Normal 10-54 [facility] Comment on above: Order Comment: Speci men Type: BLOOD SPECIMENOrdering Facility: [facility] Address: [address] [place] [address] Performed By: #### 2 532-0, 09791-8 ####[facility] LABCLIA [id number] [place] [address] Anion gap [Moles/Vol] 9 mmol/L Normal 9-18 [facility] Comment on above: Order Comment: Speci men Type: BLOOD SPECIMENOrdering Facility: [facility] Address: [address] [place] [address] Performed By: #### 2 532-0, 65855-9 ####[facility] LABCLIA [id number] [place] [address] AST [Catalytic activity/Vol] 14 U/L Normal 14-40 [facility] Comment on above: Order Comment: Speci men Type: BLOOD SPECIMENOrdering Facility: [facility] Address: [address] [place] [address] Performed By: #### 2 532-0, 63799-8 ####[facility] LABCLIA [id number] [place] [address] Bilirubin [Mass/Vol] 0.6 mg/dL Normal 0.2-1.3 [facility] Comment on above: Order Comment: Speci men Type: BLOOD SPECIMENOrdering Facility: [facility] Address: [address] [place] [address] Performed By: #### 2 532-0, 77884-0 ####[facility] LABIA [id number] [place] [address] Calcium [Mass/Vol] 8.8 mg/dL Normal 8.5-10.2 [facility] Comment on above: Order Comment: Speci men Type: BLOOD SPECIMENOrdering Facility: [facility] Address: [address] [place] [address] Performed By: #### 2 532-0, ####[facility] LABIA [id number] [place] [address] Chloride [Moles/Vol] 105 mmol/L Normal 97-105 [facility] Comment on above: Order Comment: Speci men Type: BLOOD SPECIMENOrdering Facility: [facility] Address: [address] [place] [address] Performed By: #### 2 532-0, 03982-1 ####[facility] LABIA [id number] [place] [address] CO2 [Moles/Vol] 29 mmol/L Normal 22-30 [facility] Comment on above: Order Comment: Speci men Type: BLOOD SPECIMENOrdering Facility: [facility] Address: [address] [place] [address] Performed By: #### 2 532-0, 91405-1 ####[facility] LABIA [id number] [place] [address] Creatinine [Mass/Vol] 1.90 mg/dL High 0.73-1.22 [facility] Comment on above: Order Comment: Speci men Type: BLOOD SPECIMENOrdering Facility: [facility] Address: [address] [place], [place] [address] Performed By: #### 2 532-0, 19993-3 ####[facility] LABIA [id number] [place] [address] ESTIMATED GLOMERULAR FILTRATION RATE 35 mL/min/1.73m??? Low >=60 [facility] Comment on above: Order Comment: Speci men Type: BLOOD SPECIMENOrdering Facility: [facility] Address: [address] [place] [address] Result Comment: Faye mated Glomerular Filtration Rate (eGFR) is calculated using the 2020 CKD-EPI creatinine equation. This equation utilizes serum creatinine, sex, and age as parameters. The creatinine assay has traceable calibration to isotope dilution-mass spectrometry. Refer to KDIGO guidelines for clinical interpretation. In patients with unstable renal function, e.g. those with acute kidney injury, the eGFR may not accurately reflect actual GFR. Performed By: #### 2 532-0, 91048-2 ####[facility] LABIA [id number] [place] [address] Glucose [Mass/Vol] 145 mg/dL High 74-99 [facility] Comment on above: Order Comment: Speci men Type: BLOOD SPECIMENOrdering Facility: [facility] Address: [address] [place], [place] [address] Result Comment: The [place] [employer] (ADA) provides guidance for cutoff values for fasting glucose and random glucose. The ADA defines fasting as no caloric intake for at least 8 hours. Fasting plasma glucose results between 100 to 125 mg/dL indicate increased risk for diabetes (prediabetes).Fasting plasma glucose results greater than or equal to 126 mg/dL meet the criteria for diagnosis of diabetes. In the absence of unequivocal hyperglycemia, results should be confirmed by repeat testing. In a patient with classic symptoms of hyperglycemia or hyperglycemic crisis, random plasma glucose results greater than or equal to 200 mg/dL meet the criteria for diagnosis of diabetes.Reference: Standards of Medical Care in Diabetes 2016, [employer] [place] [employer]. Diabetes Care. 2016.39(Suppl 1). Performed By: #### 2 532-0, 72771-0 ####[facility] LABCLIA [id number] [place] [address] Potassium [Moles/Vol] 4.2 mmol/L Normal 3.7-5.1 [facility] Comment on above: Order Comment: Speci men Type: BLOOD SPECIMENOrdering Facility: [facility] Address: [address] [place] [address] Performed By: #### 2 532-0, 97862-6 ####[facility] LABIA [id number] [place] [address] Protein [Mass/Vol] 6.1 g/dL Low 6.3-8.0 [facility] Comment on above: Order Comment: Speci men Type: BLOOD SPECIMENOrdering Facility: [facility] Address: [address] [place] [address] Performed By: #### 2 532-0, 59850-6 ####[facility] LABIA [id number] [place] [address] Sodium [Moles/Vol] 143 mmol/L Normal 136-144 [facility] Comment on above: Order Comment: Speci men Type: BLOOD SPECIMENOrdering Facility: [facility] Address: [address] [place] [address] Performed By: #### 2 532-0, 83790-7 ####[facility] LABCLIA [id number] [place] [address] Urea nitrogen [Mass/Vol] 29 mg/dL High 9-24 [facility] Comment on above: Order Comment: Speci men Type: BLOOD SPECIMENOrdering Facility: [facility] Address: [address] [place], [place] [address] Performed By: #### 2 532-0, 78549-7 ####[facility] LABCLIA [id number] [place] [address] LDH SerPl-cCncon 02-25-2022 LDH [Catalytic activity/Vol] 227 U/L High 135-225 [facility] Comment on above: Order Comment: Speci men Type: BLOOD SPECIMENOrdering Facility: [facility] Address: [address] [place], [place] [address] Performed By: #### 2 532-0, 76536-6 ####[facility] LABCLIA [id number] [place] [address] CBC W Auto Differential pane l (Bld)on 02-18-2022 Anisocytosis Ql (Bld) Present Normal [facility] Comment on above: Order Comment: Speci men Type: BLOOD SPECIMENOrdering Facility: [facility] Address: [address] [place], [place] [address] Performed By: #### 5 7021-8 ####[facility] LABCLIA [id number] [address] [address] [facility] LABCLIA [id number] [place] [address] Basophils/100 WBC (Bld) 1.0 % Normal [facility] Comment on above: Order Comment: Speci men Type: BLOOD SPECIMENOrdering Facility: [facility] Address: [address] [place], [place] [address] Performed By: #### 5 7021-8 ####[facility] LABCLIA [id number] [address] [address] [facility] LABCLIA [id number] [place] [address] Eosinophils (Bld) [#/Vol] 0.00 10*3/uL Normal <0.46 [facility] Comment on above: Order Comment: Speci men Type: BLOOD SPECIMENOrdering Facility: [facility] Address: [address] [place] [address] Performed By: #### 5 7021-8 ####[facility] LABCLIA [id number] [address] LABCLIA [id number] [place] [address] Eosinophils/100 WBC (Bld) 0.0 % Normal [facility] Comment on above: Order Comment: Speci men Type: BLOOD SPECIMENOrdering Facility: [facility] Address: [address] [place] [address] Performed By: #### 5 7021-8 ####[facility] LABCLIA [id number] [address] LABCLIA [id number] [place] [address] Erythrocyte distribution width (RBC) [Ratio] 23.9 % High 11.5-15.0 [facility] Comment on above: Order Comment: Speci men Type: BLOOD SPECIMENOrdering Facility: [facility] Address: [address] [place] [address] Performed By: #### 5 7021-8 ####[facility] LABCLIA [id number] [address] LABCLIA [id number] [place] [address] Giant platelets LM Ql (Bld) Occasional Normal [facility] Comment on above: Order Comment: Speci men Type: BLOOD SPECIMENOrdering Facility: [facility] Address: [address] [place] [address] Performed By: #### 5 7021-8 ####[facility] LABCLIA [id number] [address] LABCLIA [id number] [place] [address] Hematocrit (Bld) [Volume fraction] 25.8 % Low 39.0-51.0 [facility] Comment on above: Order Comment: Speci men Type: BLOOD SPECIMENOrdering Facility: [facility] Address: [address] [place] [address] Performed By: #### 5 7021-8 ####[facility] LABCLIA [id number] [address] LABCLIA [id number] [place] [address] Hemoglobin (Bld) [Mass/Vol] 8.4 g/dL Low 13.0-17.0 [facility] Comment on above: Order Comment: Speci men Type: BLOOD SPECIMENOrdering Facility: [facility] Address: [address] [place] [address] Performed By: #### 5 7021-8 ####[facility] LABCLIA [id number] [address] LABCLIA [id number] [place] [address] Lymphocytes (Bld) [#/Vol] 0.89 10*3/uL Low 1.00-4.00 [facility] Comment on above: Order Comment: Speci men Type: BLOOD SPECIMENOrdering Facility: [facility] Address: [address] [place] [address] Performed By: #### 5 7021-8 ####[facility] LABCLIA [id number] [address] LABCLIA [id number] [place] [address] Lymphocytes/100 WBC (Bld) 23.0 % Normal [facility] Comment on above: Order Comment: Speci men Type: BLOOD SPECIMENOrdering Facility: [facility] Address: [address] [place] [address] Performed By: #### 5 7021-8 ####[facility] LABCLIA [id number] [address] LABCLIA [id number] [place] [address] MCH (RBC) [Entitic mass] 34.3 pg High 26.0-34.0 [facility] Comment on above: Order Comment: Speci men Type: BLOOD SPECIMENOrdering Facility: [facility] Address: [address] [place] [address] Performed By: #### 5 7021-8 ####[facility] LABCLIA [id number] [address] LABCLIA [id number] [place] [address] MCHC (RBC) [Mass/Vol] 32.6 g/dL Normal 30.5-36.0 [facility] Comment on above: Order Comment: Speci men Type: BLOOD SPECIMENOrdering Facility: [facility] Address: [address] [place] [address] Performed By: #### 5 7021-8 ####[facility] LABCLIA [id number] [address] LABCLIA [id number] [place] [address] MCV (RBC) [Entitic vol] 105.3 fL High 80.0-100.0 [facility] Comment on above: Order Comment: Speci men Type: BLOOD SPECIMENOrdering Facility: [facility] Address: [address] [place] [address] Performed By: #### 5 7021-8 ####[facility] LABCLIA [id number] [address] [place] [address] LABCLIA [id number] [place] [address] Metamyelocytes/100 WBC (Bld) 2.0 % Normal [facility] Comment on above: Order Comment: Speci men Type: BLOOD SPECIMENOrdering Facility: [facility] Address: [address] [place] [address] Performed By: #### 5 7021-8 ####[facility] LABCLIA [id number] [address] LABCLIA [id number] [place] [address] MYELO% 3.0 % Normal [facility] Comment on above: Order Comment: Speci men Type: BLOOD SPECIMENOrdering Facility: [facility] Address: [address] [place] [address] Performed By: #### 5 7021-8 ####[facility] LABCLIA [id number] [address] LABCLIA [id number] [place] [address] Neutrophils (Bld) [#/Vol] 2.37 10*3/uL Normal 1.45-7.50 [facility] Comment on above: Order Comment: Speci men Type: BLOOD SPECIMENOrdering Facility: [facility] Address: [address] [place], [place] [address] Performed By: #### 5 7021-8 ####[facility] LABCLIA [id number] [address] LABCLIA [id number] [place] [address] Neutrophils/100 WBC (Bld) 61.0 % Normal [facility] Comment on above: Order Comment: Speci men Type: BLOOD SPECIMENOrdering Facility: [facility] Address: [address] [place] [address] Performed By: #### 5 7021-8 ####[facility] LABCLIA [id number] [address] [address] [facility] LABCLIA [id number] [place] [address] Nucleated RBC/100 WBC (Bld) [Ratio] 0.0 /100 WBC Normal [facility] Comment on above: Order Comment: Speci men Type: BLOOD SPECIMENOrdering Facility: [facility] Address: [address] [place] [address] Performed By: #### 5 7021-8 ####[facility] LABCLIA [id number] [address] LABCLIA [id number] [place] [address] Ovalocytes LM Ql (Bld) Few Normal [facility] Comment on above: Order Comment: Speci men Type: BLOOD SPECIMENOrdering Facility: [facility] Address: [address] [place] [address] Performed By: #### 5 7021-8 ####[facility] LABCLIA [id number] [address] LABCLIA [id number] [place] [address] PLATELET ESTIMATE Adequate Normal [facility] Comment on above: Order Comment: Speci men Type: BLOOD SPECIMENOrdering Facility: [facility] Address: [address] [place] [address] Performed By: #### 5 7021-8 ####[facility] LABCLIA [id number] [place] [id number] [facility] LABCLIA [id number] [place] [address] Platelet mean volume (Bld) [Entitic vol] 13.9 fL High 9.0-12.7 [facility] Comment on above: Order Comment: Speci men Type: BLOOD SPECIMENOrdering Facility: [facility] Address: [address] [place] [address] Performed By: #### 5 7021-8 ####[facility] LABCLIA [id number] [address] LABCLIA [id number] [place] [address] Platelets (Bld) [#/Vol] 164 10*3/uL Normal 150-400 [facility] Comment on above: Order Comment: Speci men Type: BLOOD SPECIMENOrdering Facility: [facility] Address: [address] [place] [address] Result Comment: Samp le checked for clot Performed By: #### 5 7021-8 ####[facility] LABCLIA [id number] [address] LABCLIA [id number] [place] [address] Polychromasia LM Ql (Bld) Slight Normal [facility] Comment on above: Order Comment: Speci men Type: BLOOD SPECIMENOrdering Facility: [facility] Address: [address] [place] [address] Performed By: #### 5 7021-8 ####[facility] LABCLIA [id number] [address] LABCLIA [id number] [place] [address] RBC (Bld) [#/Vol] 2.45 10*6/uL Low 4.20-6.00 [facility] Comment on above: Order Comment: Speci men Type: BLOOD SPECIMENOrdering Facility: [facility] Address: [address] [place] [address] Performed By: #### 5 7021-8 ####[facility] LABCLIA [id number] [place] [address] [facility] LABCLIA [id number] [place] [address] RBC FRAGMENTS Few Abnormal None Seen [facility] Comment on above: Order Comment: Speci men Type: BLOOD SPECIMENOrdering Facility: [facility] Address: [address] [place] [address] Performed By: #### 5 7021-8 ####[facility] LABCLIA [id number] [address] LABCLIA [id number] [place] [address] RED CELL MORPH Reviewed: see result s of individual morphologies Normal [facility] Comment on above: Order Comment: Speci men Type: BLOOD SPECIMENOrdering Facility: [facility] Address: [address] [place] [address] Performed By: #### 5 7021-8 ####[facility] LABCLIA [id number] [address] LABCLIA [id number] [place] [address] WAM - ABS BASO 0.04 k/uL Normal <0.11 [facility] Comment on above: Order Comment: Speci men Type: BLOOD SPECIMENOrdering Facility: [facility] Address: [address] [place] [address] Performed By: #### 5 7021-8 ####[facility] LABCLIA [id number] [place] [id number] [facility] LABCLIA [id number] [place] [id number] WAM - ABS MONO 0.39 k/uL Normal <0.87 [facility] Comment on above: Order Comment: Speci men Type: BLOOD SPECIMENOrdering Facility: [facility] Address: [address] [place] [address] Performed By: #### 5 7021-8 ####[facility] LABCLIA [id number] [address] LABCLIA [id number] [place] [address] WAM - MONO% 10.0 % Normal [facility] Comment on above: Order Comment: Speci men Type: BLOOD SPECIMENOrdering Facility: [facility] Address: [address] [place] [address] Performed By: #### 5 7021-8 ####[facility] LABCLIA [id number] [address] LABCLIA [id number] [place] [address] WAM ABSOLUTE NRBC <0.01 Normal <0.01 [facility] Comment on above: Order Comment: Speci men Type: BLOOD SPECIMENOrdering Facility: [facility] Address: [address] [place] [address] Performed By: #### 5 7021-8 ####[facility] LABCLIA [id number] [address] LABCLIA [id number] [place] [address] WBC (Bld) [#/Vol] 3.77 10*3/uL Normal 3.70-11.00 [facility] Comment on above: Order Comment: Speci men Type: BLOOD SPECIMENOrdering Facility: [facility] Address: [address] [place], [place] [address] Result Comment: No c lot detected. Checked and Verified Performed By: #### 5 7021-8 ####[facility] LABCLIA [id number] [address] LABCLIA [id number] [place] [address] WBC Left Shift Ql (Bld) Present Normal [facility] Comment on above: Order Comment: Speci men Type: BLOOD SPECIMENOrdering Facility: [facility] Address: [address] [place] [address] Performed By: #### 5 7021-8 ####[facility] LABCLIA [id number] [address] LABCLIA [id number] [place] [address] Comprehensive metabolic 2000 panelon 02-18-2022 Albumin [Mass/Vol] 3.9 g/dL Normal 3.9-4.9 [facility] Comment on above: Order Comment: Speci men Type: BLOOD SPECIMENOrdering Facility: [facility] Address: [address] [place], [place] [address] Performed By: #### 2 4323-8, 2532-0 ####[facility] LABCLIA [id number] [place] [address] ALP [Catalytic activity/Vol] 68 U/L Normal 38-113 [facility] Comment on above: Order Comment: Speci men Type: BLOOD SPECIMENOrdering Facility: [facility] Address: [address] [place], [place] [address] Performed By: #### 2 4323-8, 2532-0 ####[facility] LABIA [id number] [place] [address] ALT [Catalytic activity/Vol] 34 U/L Normal 10-54 [facility] Comment on above: Order Comment: Speci men Type: BLOOD SPECIMENOrdering Facility: [facility] Address: [address] Performed By: #### 2 432-8, 2531-0 ####[facility] LABCLIA [id number] [place] [address] Anion gap [Moles/Vol] 10 mmol/L Normal 9-18 [facility] Comment on above: Order Comment: Speci men Type: BLOOD SPECIMENOrdering Facility: [facility] Address: [address] [place], [place] [address] Performed By: #### 2 432-8, 2531-0 ####[facility] LABCLIA [id number] [place] [address] AST [Catalytic activity/Vol] 13 U/L Low 14-40 [facility] Comment on above: Order Comment: Speci men Type: BLOOD SPECIMENOrdering Facility: [facility] Address: [address] [place] [address] Performed By: #### 2 4328, 2531-0 ####[facility] LABIA [id number] [place] [address] Bilirubin [Mass/Vol] 0.7 mg/dL Normal 0.2-1.3 [facility] Comment on above: Order Comment: Speci men Type: BLOOD SPECIMENOrdering Facility: [facility] Address: [address] [place], [place] [address] Performed By: #### 2 4328, 2531-0 ####[facility] LABCLIA [id number] [place] [address] Calcium [Mass/Vol] 9.1 mg/dL Normal 8.5-10.2 [facility] Comment on above: Order Comment: Speci men Type: BLOOD SPECIMENOrdering Facility: [facility] Address: [address] [place], [place] [address] Performed By: #### 2 4323-8, 2531-0 ####[facility] LABCLIA [id number] [place] [address] Chloride [Moles/Vol] 102 mmol/L Normal 97-105 [facility] Comment on above: Order Comment: Speci men Type: BLOOD SPECIMENOrdering Facility: [facility] Address: [address] [place] [address] Performed By: #### 2 4323-8, 2532-0 ####[facility] LABCLIA [id number] [place] [address] CO2 [Moles/Vol] 33 mmol/L High 22-30 [facility] Comment on above: Order Comment: Speci men Type: BLOOD SPECIMENOrdering Facility: [facility] Address: [address] [place] [address] Performed By: #### 2 4323-8, 2532-0 ####[facility] LABCLIA [id number] [place] [address] Creatinine [Mass/Vol] 1.90 mg/dL High 0.73-1.22 [facility] Comment on above: Order Comment: Speci men Type: BLOOD SPECIMENOrdering Facility: [facility] Address: [address] [place] [address] Performed By: #### 2 4323-8, 253-0 ####[facility] LABCLIA [id number] [place] [address] ESTIMATED GLOMERULAR FILTRATION RATE 35 mL/min/1.73m??? Low >=60 [facility] Comment on above: Order Comment: Speci men Type: BLOOD SPECIMENOrdering Facility: [facility] Address: [address] [place] [address] Result Comment: Faye mated Glomerular Filtration Rate (eGFR) is calculated using the 2020 CKD-EPI creatinine equation. This equation utilizes serum creatinine, sex, and age as parameters. The creatinine assay has traceable calibration to isotope dilution-mass spectrometry. Refer to KDIGO guidelines for clinical interpretation. In patients with unstable renal function, e.g. those with acute kidney injury, the eGFR may not accurately reflect actual GFR. Performed By: #### 2 4323-8, 2531-0 ####[facility] LABCLIA [id number] [place] [address] Glucose [Mass/Vol] 250 mg/dL High 74-99 [facility] Comment on above: Order Comment: Speci men Type: BLOOD SPECIMENOrdering Facility: [facility] Address: [address] [place], [place] [address] Result Comment: The [place] [employer] (ADA) provides guidance for cutoff values for fasting glucose and random glucose. The ADA defines fasting as no caloric intake for at least 8 hours. Fasting plasma glucose results between 100 to 125 mg/dL indicate increased risk for diabetes (prediabetes).Fasting plasma glucose results greater than or equal to 126 mg/dL meet the criteria for diagnosis of diabetes. In the absence of unequivocal hyperglycemia, results should be confirmed by repeat testing. In a patient with classic symptoms of hyperglycemia or hyperglycemic crisis, random plasma glucose results greater than or equal to 200 mg/dL meet the criteria for diagnosis of diabetes.Reference: Standards of Medical Care in Diabetes 2016, [employer] [place] [employer]. Diabetes Care. 2016.39(Suppl 1). Performed By: #### 2 4323-8, 0 ####[facility] LABCLIA [id number] [place] [address] Potassium [Moles/Vol] 4.0 mmol/L Normal 3.7-5.1 [facility] Comment on above: Order Comment: Speci men Type: BLOOD SPECIMENOrdering Facility: [facility] Address: [address] [place] [address] Performed By: #### 2 4323-8, 2531-0 ####[facility] LABIA [id number] [place] [address] Protein [Mass/Vol] 6.1 g/dL Low 6.3-8.0 [facility] Comment on above: Order Comment: Speci men Type: BLOOD SPECIMENOrdering Facility: [facility] Address: [address] [place], [place] [address] Performed By: #### 2 4323-8, 2531-0 ####[facility] LABCLIA [id number] [place] [address] Sodium [Moles/Vol] 145 mmol/L High 136-144 [facility] Comment on above: Order Comment: Speci men Type: BLOOD SPECIMENOrdering Facility: [facility] Address: [address] [place] [address] Performed By: #### 2 4323-8, 2531-0 ####[facility] LABIA [id number] [place] [address] Urea nitrogen [Mass/Vol] 42 mg/dL High 9-24 [facility] Comment on above: Order Comment: Speci men Type: BLOOD SPECIMENOrdering Facility: [facility] Address: [address] [place] [address] Performed By: #### 2 43238, 2531-0 ####[facility] LABIA [id number] [place] [address] LDH SerPl-cCncon 02-18-2022 LDH [Catalytic activity/Vol] 248 U/L High 135-225 [facility] Comment on above: Order Comment: Speci men Type: BLOOD SPECIMENOrdering Facility: [facility] Address: [address] [place] [address] Performed By: #### 2 4323-8, 2531-0 ####[facility] LABIA [id number] [place] [address] PRBC LEUKOREDUCEDon 02-18-20 ABO and Rh group Nom (Bld) Cross Match Result Compatible Unit Blood Type A Pos Unit Number [id number] Status Information Transfused Product ID Red Blood Cells Product Code [id number] Cross Match Result Compatible Unit Blood Type A Pos Unit Number [id number] Status Information Transfused Product ID Red Blood Cells Product Code [id number] Normal [facility] Comment on above: Performed By: #### P RBC, TNS #### [facility] [address] [place], [place] [address] Dr. Benito To CBC W Auto Differential pane l (Bld)on 02-15-2022 Anisocytosis Ql (Bld) Present Normal [facility] Comment on above: Order Comment: Speci men Type: BLOOD SPECIMENOrdering Facility: [facility] Address: [address] [place] [address] Performed By: #### 5 7021-8 ####[facility] LABCLIA [id number] [address] LABCLIA [id number] [place] [address] Basophils/100 WBC (Bld) 0.0 % Normal [facility] Comment on above: Order Comment: Speci men Type: BLOOD SPECIMENOrdering Facility: [facility] Address: [address] [place] [address] Performed By: #### 5 7021-8 ####[facility] LABCLIA [id number] [address] LABCLIA [id number] [place] [address] Differential cell count method Nom (Bld) Manual Normal [facility] Comment on above: Order Comment: Speci men Type: BLOOD SPECIMENOrdering Facility: [facility] Address: [address] [place], [place] [address] Performed By: #### 5 7021-8 ####[facility] LABCLIA [id number] [address] LABCLIA [id number] [place] [address] Eosinophils (Bld) [#/Vol] 0.00 10*3/uL Normal <0.46 [facility] Comment on above: Order Comment: Speci men Type: BLOOD SPECIMENOrdering Facility: [facility] Address: [address] [place], [place] [address] Performed By: #### 5 7021-8 ####[facility] LABCLIA [id number] [address] LABCLIA [id number] [place] [address] Eosinophils/100 WBC (Bld) 0.0 % Normal [facility] Comment on above: Order Comment: Speci men Type: BLOOD SPECIMENOrdering Facility: [facility] Address: [address] [place] [address] Performed By: #### 5 7021-8 ####[facility] LABIA [id number] [address] LABCLIA [id number] [place] [address] Erythrocyte distribution width (RBC) [Ratio] 24.0 % High 11.5-15.0 [facility] Comment on above: Order Comment: Speci men Type: BLOOD SPECIMENOrdering Facility: [facility] Address: [address] [place] [address] Result Comment: Suresh ected result: Previously reported as 24.0 % on 02/15/2022 at 1:41 PM EDT.Corrected result: Previously reported as 23.8 % on 02/15/2022 at 11:23 PM EDT. Performed By: #### 5 7021-8 ####[facility] LABCLIA [id number] [address] LABCLIA [id number] [place] [address] Giant platelets LM Ql (Bld) Occasional Normal [facility] Comment on above: Order Comment: Speci men Type: BLOOD SPECIMENOrdering Facility: [facility] Address: [address] [place] [address] Performed By: #### 5 7021-8 ####[facility] LABCLIA [id number] [address] LABCLIA [id number] [place] [address] Hematocrit (Bld) [Volume fraction] 24.6 % Low 39.0-51.0 [facility] Comment on above: Order Comment: Speci men Type: BLOOD SPECIMENOrdering Facility: [facility] Address: [address] [place] [address] Result Comment: Suresh ected result: Previously reported as 24.6 % on 02/15/2022 at 1:41 PM EDT.Corrected result: Previously reported as 24.8 % on 02/15/2022 at 11:23 PM EDT. Performed By: #### 5 7021-8 ####[facility] LABCLIA [id number] [address] LABIA [id number] [place] [address] Hemoglobin (Bld) [Mass/Vol] 7.9 g/dL Low 13.0-17.0 [facility] Comment on above: Order Comment: Speci men Type: BLOOD SPECIMENOrdering Facility: [facility] Address: [address] [place] [address] Result Comment: Suresh ected result: Previously reported as 7.9 g/dL on 02/15/2022 at 1:41 PM EDT.Corrected result: Previously reported as 8.0 g/dL on 02/15/2022 at 11:23 PM EDT. Performed By: #### 5 7021-8 ####[facility] LABCLIA [id number] [address] LABCLIA [id number] [place] [address] Lymphocytes (Bld) [#/Vol] 0.87 10*3/uL Low 1.00-4.00 [facility] Comment on above: Order Comment: Speci men Type: BLOOD SPECIMENOrdering Facility: [facility] Address: [address] [place] [address] Performed By: #### 5 7021-8 ####[facility] LABCLIA [id number] [address] LABCLIA [id number] [place] [address] Lymphocytes/100 WBC (Bld) 18.0 % Normal [facility] Comment on above: Order Comment: Speci men Type: BLOOD SPECIMENOrdering Facility: [facility] Address: [address] [place] [address] Performed By: #### 5 7021-8 ####[facility] LABCLIA [id number] [address] LABCLIA [id number] [place] [address] MCH (RBC) [Entitic mass] 33.5 pg Normal 26.0-34.0 [facility] Comment on above: Order Comment: Speci men Type: BLOOD SPECIMENOrdering Facility: [facility] Address: [address] [place] [address] Result Comment: Suresh ected result: Previously reported as 33.5 pg on 02/15/2022 at 1:41 PM EDT.Corrected result: Previously reported as 33.9 pg on 02/15/2022 at 11:23 PM EDT. Performed By: #### 5 7021-8 ####[facility] LABCLIA [id number] [address] LABCLIA [id number] [place] [address] MCHC (RBC) [Mass/Vol] 32.1 g/dL Normal 30.5-36.0 [facility] Comment on above: Order Comment: Speci men Type: BLOOD SPECIMENOrdering Facility: [facility] Address: [address] [place] [address] Result Comment: Suresh ected result: Previously reported as 32.1 g/dL on 02/15/2022 at 1:41 PM EDT.Corrected result: Previously reported as 32.3 g/dL on 02/15/2022 at 11:23 PM EDT. Performed By: #### 5 7021-8 ####[facility] LABCLIA [id number] [address] LABCLIA [id number] [place] [address] MCV (RBC) [Entitic vol] 104.2 fL High 80.0-100.0 [facility] Comment on above: Order Comment: Speci men Type: BLOOD SPECIMENOrdering Facility: [facility] Address: [address] [place] [address] Result Comment: Suresh ected result: Previously reported as 104.2 fL on 02/15/2022 at 1:41 PM EDT.Corrected result: Previously reported as 105.1 fL on 02/15/2022 at 11:23 PM EDT. Performed By: #### 5 7021-8 ####[facility] LABCLIA [id number] [address] LABCLIA [id number] [place] [address] Neutrophils (Bld) [#/Vol] 3.54 10*3/uL Normal 1.45-7.50 [facility] Comment on above: Order Comment: Speci men Type: BLOOD SPECIMENOrdering Facility: [facility] Address: [address] [place] [address] Performed By: #### 5 7021-8 ####[facility] LABCLIA [id number] [address] LABCLIA [id number] [place] [address] Neutrophils/100 WBC (Bld) 73.0 % Normal [facility] Comment on above: Order Comment: Speci men Type: BLOOD SPECIMENOrdering Facility: [facility] Address: [address] [place] [address] Performed By: #### 5 7021-8 ####[facility] LABCLIA [id number] [place] [id number] [facility] LABCLIA [id number] [place] [address] Nucleated RBC/100 WBC (Bld) [Ratio] 0.0 /100 WBC Normal [facility] Comment on above: Order Comment: Speci men Type: BLOOD SPECIMENOrdering Facility: [facility] Address: [address] [place] [address] Performed By: #### 5 7021-8 ####[facility] LABCLIA [id number] [address] LABCLIA [id number] [place] [address] Ovalocytes LM Ql (Bld) Few Normal [facility] Comment on above: Order Comment: Speci men Type: BLOOD SPECIMENOrdering Facility: [facility] Address: [address] [place] [address] Performed By: #### 5 7021-8 ####[facility] LABCLIA [id number] [address] LABCLIA [id number] [place] [address] PLATELET ESTIMATE Adequate Normal [facility] Comment on above: Order Comment: Speci men Type: BLOOD SPECIMENOrdering Facility: [facility] Address: [address] [place] [address] Performed By: #### 5 7021-8 ####[facility] LABCLIA [id number] [address] LABCLIA [id number] [place] [id number] Platelet mean volume (Bld) [Entitic vol] 14.0 fL High 9.0-12.7 [facility] Comment on above: Order Comment: Speci men Type: BLOOD SPECIMENOrdering Facility: [facility] Address: [address] [place] [address] Result Comment: Suresh ected result: Previously reported as 14.0 fL on 02/15/2022 at 1:41 PM EDT.Corrected result: Previously reported as 15.1 fL on 02/15/2022 at 11:23 PM EDT. Performed By: #### 5 7021-8 ####[facility] LABCLIA [id number] [address] LABCLIA [id number] [place] [address] Platelets (Bld) [#/Vol] 170 10*3/uL Normal 150-400 [facility] Comment on above: Order Comment: Speci men Type: BLOOD SPECIMENOrdering Facility: [facility] Address: [address] [place] [address] Result Comment: Samp le checked for clotCorrected result: Previously reported as 170 k/uL on 02/15/2022 at 1:41 PM EDT.Corrected result: Previously reported as 158 k/uL on 02/15/2022 at 11:23 PM EDT. Performed By: #### 5 7021-8 ####[facility] LABCLIA [id number] [address] LABCLIA [id number] [place] [id number] Polychromasia LM Ql (Bld) Slight Normal [facility] Comment on above: Order Comment: Speci men Type: BLOOD SPECIMENOrdering Facility: [facility] Address: [address] [place] [address] Performed By: #### 5 7021-8 ####[facility] LABCLIA [id number] [address] LABCLIA [id number] [place] [address] RBC (Bld) [#/Vol] 2.36 10*6/uL Low 4.20-6.00 [facility] Comment on above: Order Comment: Speci men Type: BLOOD SPECIMENOrdering Facility: [facility] Address: [address] [place] [address] Performed By: #### 5 7021-8 ####[facility] LABCLIA [id number] [address] LABCLIA [id number] [place] [address] RBC FRAGMENTS Few Abnormal None Seen [facility] Comment on above: Order Comment: Speci men Type: BLOOD SPECIMENOrdering Facility: [facility] Address: [address] [place] [address] Performed By: #### 5 7021-8 ####[facility] LABCLIA [id number] [address] LABCLIA [id number] [place] [address] RED CELL MORPH Reviewed: see result s of individual morphologies Normal [facility] Comment on above: Order Comment: Speci men Type: BLOOD SPECIMENOrdering Facility: [facility] Address: [address] [place], [place] [address] Performed By: #### 5 7021-8 ####[facility] LABCLIA [id number] [address] LABCLIA [id number] [place] [address] WAM - ABS BASO 0.00 k/uL Normal <0.11 [facility] Comment on above: Order Comment: Speci men Type: BLOOD SPECIMENOrdering Facility: [facility] Address: [address] [place] [address] Performed By: #### 5 7021-8 ####[facility] LABCLIA [id number] [address] LABCLIA [id number] [place] [address] WAM - ABS MONO 0.44 k/uL Normal <0.87 [facility] Comment on above: Order Comment: Speci men Type: BLOOD SPECIMENOrdering Facility: [facility] Address: [address] [place] [address] Performed By: #### 5 7021-8 ####[facility] LABCLIA [id number] [address] LABCLIA [id number] [place] [address] WAM - MONO% 9.0 % Normal [facility] Comment on above: Order Comment: Speci men Type: BLOOD SPECIMENOrdering Facility: [facility] Address: [address] [place] [address] Performed By: #### 5 7021-8 ####[facility] LABCLIA [id number] [address] LABCLIA [id number] [place] [address] WAM ABSOLUTE NRBC <0.01 Normal <0.01 [facility] Comment on above: Order Comment: Speci men Type: BLOOD SPECIMENOrdering Facility: [facility] Address: [address] [place], [place] [address] Performed By: #### 5 7021-8 ####[facility] LABCLIA [id number] [place] [id number] [facility] LABCLIA [id number] [place] [address] WBC (Bld) [#/Vol] 4.85 10*3/uL Normal 3.70-11.00 [facility] Comment on above: Order Comment: Speci men Type: BLOOD SPECIMENOrdering Facility: [facility] Address: [address] [place] [address] Performed By: #### 5 7021-8 ####[facility] LABCLIA [id number] [address] LABCLIA [id number] [place] [address] Comprehensive metabolic 2000 panelon 02-15-2022 Albumin [Mass/Vol] 3.9 g/dL Normal 3.9-4.9 [facility] Comment on above: Order Comment: Speci men Type: BLOOD SPECIMENOrdering Facility: [facility] Address: [address] [place], [place] [address] Performed By: #### 2 532-0, 32100-4 ####[facility] LABCLIA [id number] [place] [address] ALP [Catalytic activity/Vol] 64 U/L Normal 38-113 [facility] Comment on above: Order Comment: Speci men Type: BLOOD SPECIMENOrdering Facility: [facility] Address: [address] [place], [place] [address] Performed By: #### 2 532-0, 83645-5 ####[facility] LABIA [id number] [place] [address] ALT [Catalytic activity/Vol] 26 U/L Normal 10-54 [facility] Comment on above: Order Comment: Speci men Type: BLOOD SPECIMENOrdering Facility: [facility] Address: [address] [place], [place] [address] Performed By: #### 2 532-0, ####[facility] LABCLIA [id number] [place] [address] Anion gap [Moles/Vol] 13 mmol/L Normal 9-18 [facility] Comment on above: Order Comment: Speci men Type: BLOOD SPECIMENOrdering Facility: [facility] Address: [address] [place] [address] Performed By: #### 2 532-0, ####[facility] LABCLIA [id number] [place] [address] AST [Catalytic activity/Vol] 11 U/L Low 14-40 [facility] Comment on above: Order Comment: Speci men Type: BLOOD SPECIMENOrdering Facility: [facility] Address: [address] [place] [address] Performed By: #### 2 532-0, ####[facility] LABCLIA [id number] [place] [address] Bilirubin [Mass/Vol] 0.4 mg/dL Normal 0.2-1.3 [facility] Comment on above: Order Comment: Speci men Type: BLOOD SPECIMENOrdering Facility: [facility] Address: [address] [place] [address] Performed By: #### 2 532-0, ####[facility] LABCLIA [id number] [place] [address] Calcium [Mass/Vol] 8.9 mg/dL Normal 8.5-10.2 [facility] Comment on above: Order Comment: Speci men Type: BLOOD SPECIMENOrdering Facility: [facility] Address: [address] [place] [address] Performed By: #### 2 532-0, ####[facility] LABCLIA [id number] [place] [address] Chloride [Moles/Vol] 102 mmol/L Normal 97-105 [facility] Comment on above: Order Comment: Speci men Type: BLOOD SPECIMENOrdering Facility: [facility] Address: [address] [place] [address] Performed By: #### 2 532-0, 87688-5 ####[facility] LABCLIA [id number] [place] [address] CO2 [Moles/Vol] 26 mmol/L Normal 22-30 [facility] Comment on above: Order Comment: Speci men Type: BLOOD SPECIMENOrdering Facility: [facility] Address: [address] [place] [address] Performed By: #### 2 532-0, 07604-9 ####[facility] LABCLIA [id number] [place] [address] Creatinine [Mass/Vol] 2.24 mg/dL High 0.73-1.22 [facility] Comment on above: Order Comment: Speci men Type: BLOOD SPECIMENOrdering Facility: [facility] Address: [address] [place] [address] Performed By: #### 2 532-0, 64589-8 ####[facility] LABCLIA [id number] [place] [address] ESTIMATED GLOMERULAR FILTRATION RATE 28 mL/min/1.73m??? Low >=60 [facility] Comment on above: Order Comment: Speci men Type: BLOOD SPECIMENOrdering Facility: [facility] Address: [address] [place] [address] Result Comment: Faye mated Glomerular Filtration Rate (eGFR) is calculated using the 2020 CKD-EPI creatinine equation. This equation utilizes serum creatinine, sex, and age as parameters. The creatinine assay has traceable calibration to isotope dilution-mass spectrometry. Refer to KDIGO guidelines for clinical interpretation. In patients with unstable renal function, e.g. those with acute kidney injury, the eGFR may not accurately reflect actual GFR. Performed By: #### 2 532-0, 80189-9 ####[facility] LABCLIA [id number] [place] [address] Glucose [Mass/Vol] 206 mg/dL High 74-99 [facility] Comment on above: Order Comment: Speci men Type: BLOOD SPECIMENOrdering Facility: [facility] Address: [address] [place], [place] [address] Result Comment: The [place] [employer] (ADA) provides guidance for cutoff values for fasting glucose and random glucose. The ADA defines fasting as no caloric intake for at least 8 hours. Fasting plasma glucose results between 100 to 125 mg/dL indicate increased risk for diabetes (prediabetes).Fasting plasma glucose results greater than or equal to 126 mg/dL meet the criteria for diagnosis of diabetes. In the absence of unequivocal hyperglycemia, results should be confirmed by repeat testing. In a patient with classic symptoms of hyperglycemia or hyperglycemic crisis, random plasma glucose results greater than or equal to 200 mg/dL meet the criteria for diagnosis of diabetes.Reference: Standards of Medical Care in Diabetes 2016, [place] [employer]. Diabetes Care. 2016.39(Suppl 1). Performed By: #### 2 532-0, 96488-7 ####[facility] LABCLIA [id number] [place] [address] Potassium [Moles/Vol] 3.7 mmol/L Normal 3.7-5.1 [facility] Comment on above: Order Comment: Speci men Type: BLOOD SPECIMENOrdering Facility: [facility] Address: [address] [place] [address] Performed By: #### 2 532-0, 75043-8 ####[facility] LABCLIA [id number] [place] [address] Protein [Mass/Vol] 6.0 g/dL Low 6.3-8.0 [facility] Comment on above: Order Comment: Speci men Type: BLOOD SPECIMENOrdering Facility: [facility] Address: [address] [place], [place] [phone] Performed By: #### 2 532-0, 31448-7 ####[facility] LABCLIA [id number] [place] [address] Sodium [Moles/Vol] 141 mmol/L Normal 136-144 [facility] Comment on above: Order Comment: Speci men Type: BLOOD SPECIMENOrdering Facility: [facility] Address: [address] [place], [place] [address] Performed By: #### 2 532-0, 50683-7 ####[facility] LABCLIA [id number] [place] [address] Urea nitrogen [Mass/Vol] 52 mg/dL High 9-24 [facility] Comment on above: Order Comment: Speci men Type: BLOOD SPECIMENOrdering Facility: [facility] Address: [address] [place] [address] Performed By: #### 2 532-0, 91696-2 ####[facility] LABCLIA [id number] [place] [address] Albumin [Mass/Vol] 3.9 g/dL 3.9 - 4.9 g/dL [facility] ALP [Catalytic activity/Vol] 64 U/L 38 - 113 U/L [facility] ALT [Catalytic activity/Vol] 26 U/L 10 - 54 U/L [facility] Anion gap [Moles/Vol] 13 mmol/L 9 - 18 mmol/L [facility] AST [Catalytic activity/Vol] 11 U/L Low 14 - 40 U/L [facility] Bilirubin [Mass/Vol] 0.4 mg/dL 0.2 - 1.3 mg/dL [facility] Calcium [Mass/Vol] 8.9 mg/dL 8.5 - 10.2 mg/dL [facility] Chloride [Moles/Vol] 102 mmol/L 97 - 105 mmol/L [facility] CO2 [Moles/Vol] 26 mmol/L 22 - 30 mmol/L [facility] Creatinine [Mass/Vol] 2.24 mg/dL High 0.73 - 1.22 mg/dL [facility] Estimated Glomerular Filtration Rate 28 mL/min/1.73m Low >=60 mL/min/1.73m [facility] Glucose [Mass/Vol] 206 mg/dL High 74 - 99 mg/dL [facility] Potassium [Moles/Vol] 3.7 mmol/L 3.7 - 5.1 mmol/L [facility] Protein [Mass/Vol] 6.0 g/dL Low 6.3 - 8.0 g/dL [facility] Sodium [Moles/Vol] 141 mmol/L 136 - 144 mmol/L [facility] Urea nitrogen [Mass/Vol] 52 mg/dL High 9 - 24 mg/dL [facility] LD LACTATE DEHYDROon 022 LDH [Catalytic activity/Vol] 250 U/L High 135 - 225 U/L [facility] LDH SerPl-cCncon 02-15-2022 LDH [Catalytic activity/Vol] 250 U/L High 135-225 [facility] Comment on above: Order Comment: Speci men Type: BLOOD SPECIMENOrdering Facility: [facility] Address: [address] [place] [address] Performed By: #### 2 532-0, 58469-3 ####[facility] LABCLIA [id number] [place] [address] CBC W Auto Differential pane l (Bld)on 02-11-2022 Basophils (Bld) [#/Vol] 0.03 10*3/uL Normal <0.11 [facility] Comment on above: Order Comment: Speci men Type: BLOOD SPECIMENOrdering Facility: [facility] Address: [address] [place] [address] Performed By: #### 5 7021-8 ####[facility] LABCLIA [id number] [place] [address] Basophils/100 WBC (Bld) 1.2 % Normal [facility] Comment on above: Order Comment: Speci men Type: BLOOD SPECIMENOrdering Facility: [facility] Address: [address] [place] [address] Performed By: #### 5 7021-8 ####[facility] LABCLIA [id number] [place] [address] Differential cell count method Nom (Bld) Auto Normal [facility] Comment on above: Order Comment: Speci men Type: BLOOD SPECIMENOrdering Facility: [facility] Address: [address] [place] [address] Performed By: #### 5 7021-8 ####[facility] LABCLIA [id number] [place] [address] Eosinophils (Bld) [#/Vol] 10*3/uL Normal <0.46 [facility] Comment on above: Order Comment: Speci men Type: BLOOD SPECIMENOrdering Facility: [facility] Address: [address] [place] [address] Performed By: #### 5 7021-8 ####[facility] LABCLIA [id number] [place] [address] Eosinophils/100 WBC (Bld) 0.0 % Normal [facility] Comment on above: Order Comment: Speci men Type: BLOOD SPECIMENOrdering Facility: [facility] Address: [address] [place] [address] Performed By: #### 5 7021-8 ####[facility] LABCLIA [id number] [place] [address] Erythrocyte distribution width (RBC) [Ratio] 23.6 % High 11.5-15.0 [facility] Comment on above: Order Comment: Speci men Type: BLOOD SPECIMENOrdering Facility: [facility] Address: [address] [place], [place] [phone] Performed By: #### 5 7021-8 ####[facility] LABCLIA [id number] [place] [address] Hematocrit (Bld) [Volume fraction] 25.5 % Low 39.0-51.0 [facility] Comment on above: Order Comment: Speci men Type: BLOOD SPECIMENOrdering Facility: [facility] Address: [address] [place] [address] Performed By: #### 5 7021-8 ####[facility] LABCLIA [id number] [place] [address] Hemoglobin (Bld) [Mass/Vol] 8.1 g/dL Low 13.0-17.0 [facility] Comment on above: Order Comment: Speci men Type: BLOOD SPECIMENOrdering Facility: [facility] Address: [address] [place] [address] Performed By: #### 5 7021-8 ####[facility] LABCLIA [id number] [place] [address] IMMATURE GRAN % 1.6 % Normal [facility] Comment on above: Order Comment: Speci men Type: BLOOD SPECIMENOrdering Facility: [facility] Address: [address] [place] [address] Performed By: #### 5 7021-8 ####[facility] LABCLIA [id number] [place] [address] IMMATURE GRAN ABS 0.04 k/uL Normal <0.10 [facility] Comment on above: Order Comment: Speci men Type: BLOOD SPECIMENOrdering Facility: [facility] Address: [address] [place] [address] Performed By: #### 5 7021-8 ####[facility] LABCLIA [id number] [place] [address] Lymphocytes (Bld) [#/Vol] 1.17 10*3/uL Normal 1.00-4.00 [facility] Comment on above: Order Comment: Speci men Type: BLOOD SPECIMENOrdering Facility: [facility] Address: [address] [place] [address] Performed By: #### 5 7021-8 ####[facility] LABCLIA [id number] [place] [address] Lymphocytes/100 WBC (Bld) 46.4 % Normal [facility] Comment on above: Order Comment: Speci men Type: BLOOD SPECIMENOrdering Facility: [facility] Address: [address] [place] [address] Performed By: #### 5 7021-8 ####[facility] LABCLIA [id number] [place] [address] MCH (RBC) [Entitic mass] 33.8 pg Normal 26.0-34.0 [facility] Comment on above: Order Comment: Speci men Type: BLOOD SPECIMENOrdering Facility: [facility] Address: [address] [place] [address] Performed By: #### 5 7021-8 ####[facility] LABIA [id number] [place] [address] MCHC (RBC) [Mass/Vol] 31.8 g/dL Normal 30.5-36.0 [facility] Comment on above: Order Comment: Speci men Type: BLOOD SPECIMENOrdering Facility: [facility] Address: [address] [place] [address] Performed By: #### 5 7021-8 ####[facility] LABIA [id number] [place] [address] MCV (RBC) [Entitic vol] 106.3 fL High 80.0-100.0 [facility] Comment on above: Order Comment: Speci men Type: BLOOD SPECIMENOrdering Facility: [facility] Address: [address] [place] [address] Performed By: #### 5 7021-8 ####[facility] LABCLIA [id number] [place] [address] Monocytes (Bld) [#/Vol] 0.58 10*3/uL Normal <0.87 [facility] Comment on above: Order Comment: Speci men Type: BLOOD SPECIMENOrdering Facility: [facility] Address: [address] [place] [address] Performed By: #### 5 7021-8 ####[facility] LABCLIA [id number] [place] [address] Monocytes/100 WBC (Bld) 23.0 % Normal [facility] Comment on above: Order Comment: Speci men Type: BLOOD SPECIMENOrdering Facility: [facility] Address: [address] [place] [address] Performed By: #### 5 7021-8 ####[facility] LABCLIA [id number] [place] [address] Neutrophils (Bld) [#/Vol] 0.70 10*3/uL Low 1.45-7.50 [facility] Comment on above: Order Comment: Speci men Type: BLOOD SPECIMENOrdering Facility: [facility] Address: [address] [place] [address] Performed By: #### 5 7021-8 ####[facility] LABCLIA [id number] [place] [address] Neutrophils/100 WBC (Bld) 27.8 % Normal [facility] Comment on above: Order Comment: Speci men Type: BLOOD SPECIMENOrdering Facility: [facility] Address: [address] [place] [address] Performed By: #### 5 7021-8 ####[facility] LABCLIA [id number] [place] [address] Nucleated RBC (Bld) [#/Vol] 10*3/uL Normal <0.01 [facility] Comment on above: Order Comment: Speci men Type: BLOOD SPECIMENOrdering Facility: [facility] Address: [address] [place] [address] Performed By: #### 5 7021-8 ####[facility] LABCLIA [id number] [place] [address] Nucleated RBC/100 WBC (Bld) [Ratio] 0.0 /100 WBC Normal [facility] Comment on above: Order Comment: Speci men Type: BLOOD SPECIMENOrdering Facility: [facility] Address: [address] [place] [address] Performed By: #### 5 7021-8 ####[facility] LABCLIA [id number] [place] [address] Platelet mean volume (Bld) [Entitic vol] 12.8 fL High 9.0-12.7 [facility] Comment on above: Order Comment: Speci men Type: BLOOD SPECIMENOrdering Facility: [facility] Address: [address] [place], [place] [address] Performed By: #### 5 7021-8 ####[facility] LABCLIA [id number] [place] [address] Platelets (Bld) [#/Vol] 135 10*3/uL Low 150-400 [facility] Comment on above: Order Comment: Speci men Type: BLOOD SPECIMENOrdering Facility: [facility] Address: [address] [place] [address] Performed By: #### 5 7021-8 ####[facility] LABCLIA [id number] [place] [address] RBC (Bld) [#/Vol] 2.40 10*6/uL Low 4.20-6.00 [facility] Comment on above: Order Comment: Speci men Type: BLOOD SPECIMENOrdering Facility: [facility] Address: [address] [place], [place] [address] Performed By: #### 5 7021-8 ####[facility] LABCLIA [id number] [place] [address] WBC (Bld) [#/Vol] 2.52 10*3/uL Low 3.70-11.00 [facility] Comment on above: Order Comment: Speci men Type: BLOOD SPECIMENOrdering Facility: [facility] Address: [address] [place], [place] [address] Performed By: #### 5 7021-8 ####[facility] LABCLIA [id number] [place] [address] CNOVSPon 02-11-2022 CNOVSP Normal [facility] Comprehensive metabolic 2000 panelon 02-11-2022 Albumin [Mass/Vol] 4.0 g/dL Normal 3.9-4.9 [facility] Comment on above: Order Comment: Speci men Type: BLOOD SPECIMENOrdering Facility: [facility] Address: [address] [place] [address] Performed By: #### 2 4323-8, 2532-0 ####[facility] LABCLIA [id number] [place] [address] ALP [Catalytic activity/Vol] 79 U/L Normal 38-113 [facility] Comment on above: Order Comment: Speci men Type: BLOOD SPECIMENOrdering Facility: [facility] Address: [address] [place] [address] Performed By: #### 2 4323-8, 2531-0 ####[facility] LABIA [id number] [place] [address] ALT [Catalytic activity/Vol] 23 U/L Normal 10-54 [facility] Comment on above: Order Comment: Speci men Type: BLOOD SPECIMENOrdering Facility: [facility] Address: [address] [place] [address] Performed By: #### 2 4323-8, 2531-0 ####[facility] LABCLIA [id number] [place] [address] Anion gap [Moles/Vol] 10 mmol/L Normal 9-18 [facility] Comment on above: Order Comment: Speci men Type: BLOOD SPECIMENOrdering Facility: [facility] Address: [address] [place] [address] Performed By: #### 2 4323-8, 2532-0 ####[facility] LABIA [id number] [place] [address] AST [Catalytic activity/Vol] 14 U/L Normal 14-40 [facility] Comment on above: Order Comment: Speci men Type: BLOOD SPECIMENOrdering Facility: [facility] Address: [address] [place], [place] [address] Performed By: #### 2 4323-8, 2531-0 ####[facility] LABCLIA [id number] [place] [address] Bilirubin [Mass/Vol] 0.6 mg/dL Normal 0.2-1.3 [facility] Comment on above: Order Comment: Speci men Type: BLOOD SPECIMENOrdering Facility: [facility] Address: [address] [place], [place] [address] Performed By: #### 2 4323-8, 2531-0 ####[facility] LABIA [id number] [place] [address] Calcium [Mass/Vol] 8.5 mg/dL Normal 8.5-10.2 [facility] Comment on above: Order Comment: Speci men Type: BLOOD SPECIMENOrdering Facility: [facility] Address: [address] [place], [place] [address] Performed By: #### 2 4323-8, 2531-0 ####[facility] LABIA [id number] [place] [address] Chloride [Moles/Vol] 101 mmol/L Normal 97-105 [facility] Comment on above: Order Comment: Speci men Type: BLOOD SPECIMENOrdering Facility: [facility] Address: [address] [place], [place] [address] Performed By: #### 2 4323-8, 2531-0 ####[facility] LABIA [id number] [place] [address] CO2 [Moles/Vol] 29 mmol/L Normal 22-30 [facility] Comment on above: Order Comment: Speci men Type: BLOOD SPECIMENOrdering Facility: [facility] Address: [address] [place], [place] [address] Performed By: #### 2 4323-8, 2531-0 ####[facility] LABCLIA [id number] [place] [address] Creatinine [Mass/Vol] 2.06 mg/dL High 0.73-1.22 [facility] Comment on above: Order Comment: Speci men Type: BLOOD SPECIMENOrdering Facility: [facility] Address: [address] [place], [place] [address] Performed By: #### 2 4323-8, 2531-0 ####[facility] LABCLIA [id number] [place] [address] ESTIMATED GLOMERULAR FILTRATION RATE 31 mL/min/1.73m??? Low >=60 [facility] Comment on above: Order Comment: Davi avendaño Type: BLOOD SPECIMENOrdering Facility: [facility] Address: [address] [place], [place] [address] Result Comment: Faye mated Glomerular Filtration Rate (eGFR) is calculated using the 2020 CKD-EPI creatinine equation. This equation utilizes serum creatinine, sex, and age as parameters. The creatinine assay has traceable calibration to isotope dilution-mass spectrometry. Refer to KDIGO guidelines for clinical interpretation. In patients with unstable renal function, e.g. those with acute kidney injury, the eGFR may not accurately reflect actual GFR. Performed By: #### 2 4323-8, 2531-0 ####[facility] LABCLIA [id number] [place] [address] Glucose [Mass/Vol] 129 mg/dL High 74-99 [facility] Comment on above: Order Comment: Speci kateryna Type: BLOOD SPECIMENOrdering Facility: [facility] Address: [address] [place], [place] [address] Result Comment: The [place] [employer] (ADA) provides guidance for cutoff values for fasting glucose and random glucose. The ADA defines fasting as no caloric intake for at least 8 hours. Fasting plasma glucose results between 100 to 125 mg/dL indicate increased risk for diabetes (prediabetes).Fasting plasma glucose results greater than or equal to 126 mg/dL meet the criteria for diagnosis of diabetes. In the absence of unequivocal hyperglycemia, results should be confirmed by repeat testing. In a patient with classic symptoms of hyperglycemia or hyperglycemic crisis, random plasma glucose results greater than or equal to 200 mg/dL meet the criteria for diagnosis of diabetes.Reference: Standards of Medical Care in Diabetes 2016, [employer] [place] [employer]. Diabetes Care. 2016.39(Suppl 1). Performed By: #### 2 4323-8, 2531-0 ####[facility] LABCLIA [id number] [place] [address] Potassium [Moles/Vol] 4.4 mmol/L Normal 3.7-5.1 [facility] Comment on above: Order Comment: Speci men Type: BLOOD SPECIMENOrdering Facility: [facility] Address: [address] [place] [address] Performed By: #### 2 43238, 2531-0 ####[facility] LABIA [id number] [place] [address] Protein [Mass/Vol] 6.2 g/dL Low 6.3-8.0 [facility] Comment on above: Order Comment: Speci men Type: BLOOD SPECIMENOrdering Facility: [facility] Address: [address] [place] [address] Performed By: #### 2 43238, 0 ####[facility] LABIA [id number] [place] [address] Sodium [Moles/Vol] 140 mmol/L Normal 136-144 [facility] Comment on above: Order Comment: Speci men Type: BLOOD SPECIMENOrdering Facility: [facility] Address: [address] [place] [address] Performed By: #### 2 4328, 0 ####[facility] LABCLIA [id number] [place] [address] Urea nitrogen [Mass/Vol] 21 mg/dL Normal 9-24 [facility] Comment on above: Order Comment: Speci men Type: BLOOD SPECIMENOrdering Facility: [facility] Address: [address] [place] [address] Performed By: #### 2 4323-8, 2531-0 ####[facility] LABCLIA [id number] [place] [address] LDH SerPl-cCncon 02-11-2022 LDH [Catalytic activity/Vol] 239 U/L High 135-225 [facility] Comment on above: Order Comment: Speci men Type: BLOOD SPECIMENOrdering Facility: [facility] Address: [address] [place], [place] [address] Performed By: #### 2 4323-8, 2531-0 ####[facility] LABCLIA [id number] [place] [address] CBC W Auto Differential pane l (Bld)on 02-04-2022 Anisocytosis Ql (Bld) Present Normal [facility] Comment on above: Order Comment: Speci men Type: BLOOD SPECIMENOrdering Facility: [facility] Address: [address] [place], [place] [address] Performed By: #### 5 7021-8 ####[facility] LABCLIA [id number] [place] [address] LABCLIA [id number] [facility] [place] [address] [place] Basophils/100 WBC (Bld) 0.9 % Normal [facility] Comment on above: Order Comment: Speci men Type: BLOOD SPECIMENOrdering Facility: [facility] Address: [address] [place], [place] [address] Performed By: #### 5 7021-8 ####[facility] LABCLIA [id number] [place] [id number] LABCLIA [id number] [facility] [id number] [place], [place] [address] [place] Eosinophils (Bld) [#/Vol] 0.06 10*3/uL Normal <0.46 [facility] Comment on above: Order Comment: Speci men Type: BLOOD SPECIMENOrdering Facility: [facility] Address: [address] [place] [address] Performed By: #### 5 7021-8 ####[facility] LABCLIA [id number] [address] LABCLIA [id number] [place] [address] [place] Eosinophils/100 WBC (Bld) 2.6 % Normal [facility] Comment on above: Order Comment: Speci men Type: BLOOD SPECIMENOrdering Facility: [facility] Address: [address] [place] [address] Performed By: #### 5 7021-8 ####[facility] LABCLIA [id number] [address] LABCLIA [id number] [place] [address] [place] Erythrocyte distribution width (RBC) [Ratio] 23.8 % High 11.5-15.0 [facility] Comment on above: Order Comment: Speci men Type: BLOOD SPECIMENOrdering Facility: [facility] Address: [address] [place] [address] Performed By: #### 5 7021-8 ####[facility] LABCLIA [id number] [address] LABCLIA [id number] [place] [address] [place] Hematocrit (Bld) [Volume fraction] 21.4 % Low 39.0-51.0 [facility] Comment on above: Order Comment: Speci men Type: BLOOD SPECIMENOrdering Facility: [facility] Address: [address] [place] [address] Performed By: #### 5 7021-8 ####[facility] LABCLIA [id number] [place] [id number] LABCLIA [id number] [place] [address] [place] Hemoglobin (Bld) [Mass/Vol] 6.8 g/dL Low 13.0-17.0 [facility] Comment on above: Order Comment: Speci men Type: BLOOD SPECIMENOrdering Facility: [facility] Address: [address] [place] [address] Performed By: #### 5 7021-8 ####[facility] LABCLIA [id number] [address] LABCLIA [id number] [place] [address] [place] Lymphocytes (Bld) [#/Vol] 0.82 10*3/uL Low 1.00-4.00 [facility] Comment on above: Order Comment: Speci men Type: BLOOD SPECIMENOrdering Facility: [facility] Address: [address] [place] [address] Performed By: #### 5 7021-8 ####[facility] LABCLIA [id number] [address] LABCLIA [id number] [place] [address] [place] Lymphocytes/100 WBC (Bld) 38.8 % Normal [facility] Comment on above: Order Comment: Speci men Type: BLOOD SPECIMENOrdering Facility: [facility] Address: [address] [place] [address] Performed By: #### 5 7021-8 ####[facility] LABCLIA [id number] [address] LABCLIA [id number] [place] [address] [place] MCH (RBC) [Entitic mass] 34.7 pg High 26.0-34.0 [facility] Comment on above: Order Comment: Speci men Type: BLOOD SPECIMENOrdering Facility: [facility] Address: [address] [place] [address] Performed By: #### 5 7021-8 ####[facility] LABCLIA [id number] [address] LABCLIA [id number] [place] [address] [place] MCHC (RBC) [Mass/Vol] 31.8 g/dL Normal 30.5-36.0 [facility] Comment on above: Order Comment: Speci men Type: BLOOD SPECIMENOrdering Facility: [facility] Address: [address] [place] [address] Performed By: #### 5 7021-8 ####[facility] LABCLIA [id number] [address] LABCLIA [id number] [place] [address] [place] MCV (RBC) [Entitic vol] 109.2 fL High 80.0-100.0 [facility] Comment on above: Order Comment: Speci men Type: BLOOD SPECIMENOrdering Facility: [facility] Address: [address] [place], [place] [address] Performed By: #### 5 7021-8 ####[facility] LABCLIA [id number] [address] LABCLIA [id number] [place] [address] [place] Neutrophils (Bld) [#/Vol] 0.93 10*3/uL Low 1.45-7.50 [facility] Comment on above: Order Comment: Speci men Type: BLOOD SPECIMENOrdering Facility: [facility] Address: [address] [place], [place] [address] Performed By: #### 5 7021-8 ####[facility] LABCLIA [id number] [place] [id number] LABCLIA [id number] [place] [address] [place] Neutrophils/100 WBC (Bld) 43.9 % Normal [facility] Comment on above: Order Comment: Speci men Type: BLOOD SPECIMENOrdering Facility: [facility] Address: [address] [place], [place] [address] Performed By: #### 5 7021-8 ####[facility] LABCLIA [id number] [address] LABCLIA [id number] [place] [address] [place] Nucleated RBC/100 WBC (Bld) [Ratio] 0.0 /100 WBC Normal [facility] Comment on above: Order Comment: Speci men Type: BLOOD SPECIMENOrdering Facility: [facility] Address: [address] [place] [address] Performed By: #### 5 7021-8 ####[facility] LABCLIA [id number] [address] LABCLIA [id number] [place] [address] [place] Ovalocytes LM Ql (Bld) Few Normal [facility] Comment on above: Order Comment: Speci men Type: BLOOD SPECIMENOrdering Facility: [facility] Address: [address] [place] [address] Performed By: #### 5 7021-8 ####[facility] LABCLIA [id number] [address] LABCLIA [id number] [place] [address] [place] PLATELET ESTIMATE Decreased Normal [facility] Comment on above: Order Comment: Speci men Type: BLOOD SPECIMENOrdering Facility: [facility] Address: [address] [place] [address] Performed By: #### 5 7021-8 ####[facility] LABCLIA [id number] [address] LABCLIA [id number] [place] [address] [place] Platelet mean volume (Bld) [Entitic vol] 13.0 fL High 9.0-12.7 [facility] Comment on above: Order Comment: Speci men Type: BLOOD SPECIMENOrdering Facility: [facility] Address: [address] [place] [address] Performed By: #### 5 7021-8 ####[facility] LABCLIA [id number] [address] LABCLIA [id number] [place] [address] [place] Platelets (Bld) [#/Vol] 54 10*3/uL Low 150-400 [facility] Comment on above: Order Comment: Speci men Type: BLOOD SPECIMENOrdering Facility: [facility] Address: [address] [place], [place] [address] Result Comment: Samp le checked for clot Performed By: #### 5 7021-8 ####[facility] LABCLIA [id number] [address] LABCLIA [id number] [place] [address] [place] Polychromasia LM Ql (Bld) Slight Normal [facility] Comment on above: Order Comment: Speci men Type: BLOOD SPECIMENOrdering Facility: [facility] Address: [address] [place] [address] Performed By: #### 5 7021-8 ####[facility] LABCLIA [id number] [place] [address] LABCLIA [id number] [place] [address] [place] RBC (Bld) [#/Vol] 1.96 10*6/uL Low 4.20-6.00 [facility] Comment on above: Order Comment: Speci men Type: BLOOD SPECIMENOrdering Facility: [facility] Address: [address] [place] [address] Performed By: #### 5 7021-8 ####[facility] LABCLIA [id number] [address] LABCLIA [id number] [place] [address] [place] RBC FRAGMENTS Few Abnormal None Seen [facility] Comment on above: Order Comment: Speci men Type: BLOOD SPECIMENOrdering Facility: [facility] Address: [address] [place] [address] Performed By: #### 5 7021-8 ####[facility] LABCLIA [id number] [address] LABCLIA [id number] [place] [address] [place] RED CELL MORPH Reviewed: see result s of individual morphologies Normal [facility] Comment on above: Order Comment: Speci men Type: BLOOD SPECIMENOrdering Facility: [facility] Address: [address] [place], [place] [address] Performed By: #### 5 7021-8 ####[facility] LABCLIA [id number] [address] LABCLIA [id number] [place] [address] [place] Variant lymphocytes/100 WBC (Bld) 0.0 % Normal [facility] Comment on above: Order Comment: Speci men Type: BLOOD SPECIMENOrdering Facility: [facility] Address: [address] [place] [address] Performed By: #### 5 7021-8 ####[facility] LABCLIA [id number] [address] LABCLIA [id number] [place] [address] [place] WAM - ABS BASO 0.02 k/uL Normal <0.11 [facility] Comment on above: Order Comment: Speci men Type: BLOOD SPECIMENOrdering Facility: [facility] Address: [address] [place], [place] [address] Performed By: #### 5 7021-8 ####[facility] LABCLIA [id number] [address] LABCLIA [id number] [place] [address] [place] WAM - ABS MONO 0.29 k/uL Normal <0.87 [facility] Comment on above: Order Comment: Speci men Type: BLOOD SPECIMENOrdering Facility: [facility] Address: [address] [place] [address] Performed By: #### 5 7021-8 ####[facility] LABCLIA [id number] [address] LABCLIA [id number] [place] [address] [place] WAM - MONO% 13.8 % Normal [facility] Comment on above: Order Comment: Speci men Type: BLOOD SPECIMENOrdering Facility: [facility] Address: [address] [place] [address] Performed By: #### 5 7021-8 ####[facility] LABCLIA [id number] [address] LABCLIA [id number] [place] [address] [place] WAM ABSOLUTE NRBC <0.01 Normal <0.01 [facility] Comment on above: Order Comment: Speci men Type: BLOOD SPECIMENOrdering Facility: [facility] Address: [address] [place], [place] [address] Result Comment: This result was previously suppressed from the chart. Performed By: #### 5 7021-8 ####[facility] LABCLIA [id number] [place] [address] LABCLIA [id number] [place] [address] [place] WBC (Bld) [#/Vol] 2.12 10*3/uL Low 3.70-11.00 [facility] Comment on above: Order Comment: Speci men Type: BLOOD SPECIMENOrdering Facility: [facility] Address: [address] [place], [place] [address] Performed By: #### 5 7021-8 ####[facility] LABCLIA [id number] [place] [id number] LABCLIA [id number] [place] [address] [place] CNPNon 02-04-2022 CNPN Normal [facility] metabolic 2000 panelon 02-04-2022 Albumin [Mass/Vol] 3.7 g/dL Low 3.9-4.9 [facility] Comment on above: Order Comment: Speci men Type: BLOOD SPECIMENOrdering Facility: [facility] Address: [address] [place], [place] [address] Performed By: #### 2 532-0, 71171-6 ####[facility] LABCLIA [id number] [place] [id number] ALP [Catalytic activity/Vol] 70 U/L Normal 38-113 [facility] Comment on above: Order Comment: Speci men Type: BLOOD SPECIMENOrdering Facility: [facility] Address: [address] [place] [address] Performed By: #### 2 532-0, 10664-3 ####[facility] LABCLIA [id number] [place] [address] ALT [Catalytic activity/Vol] 26 U/L Normal 10-54 [facility] Comment on above: Order Comment: Speci men Type: BLOOD SPECIMENOrdering Facility: [facility] Address: [address] [place] [address] Performed By: #### 2 532-0, ####[facility] LABCLIA [id number] [place] [address] Anion gap [Moles/Vol] 14 mmol/L Normal 9-18 [facility] Comment on above: Order Comment: Speci men Type: BLOOD SPECIMENOrdering Facility: [facility] Address: [address] [place] [address] Performed By: #### 2 532-0, 75807-1 ####[facility] LABCLIA [id number] [place] [address] AST [Catalytic activity/Vol] 14 U/L Normal 14-40 [facility] Comment on above: Order Comment: Speci men Type: BLOOD SPECIMENOrdering Facility: [facility] Address: [address] [place] [address] Performed By: #### 2 532-0, 26949-7 ####[facility] LABCLIA [id number] [place] [address] Bilirubin [Mass/Vol] 0.6 mg/dL Normal 0.2-1.3 [facility] Comment on above: Order Comment: Speci men Type: BLOOD SPECIMENOrdering Facility: [facility] Address: [address] [place] [address] Performed By: #### 2 532-0, 79614-4 ####[facility] LABCLIA [id number] [place] [address] Calcium [Mass/Vol] 8.4 mg/dL Low 8.5-10.2 [facility] Comment on above: Order Comment: Speci men Type: BLOOD SPECIMENOrdering Facility: [facility] Address: [address] [place] [address] Performed By: #### 2 532-0, 55414-9 ####[facility] LABCLIA [id number] [place] [address] Chloride [Moles/Vol] 105 mmol/L Normal 97-105 [facility] Comment on above: Order Comment: Speci men Type: BLOOD SPECIMENOrdering Facility: [facility] Address: [address] [place] [address] Performed By: #### 2 532-0, ####[facility] LABCLIA [id number] [place] [address] CO2 [Moles/Vol] 24 mmol/L Normal 22-30 [facility] Comment on above: Order Comment: Speci men Type: BLOOD SPECIMENOrdering Facility: [facility] Address: [address] [place] [address] Performed By: #### 2 532-0, ####[facility] LABCLIA [id number] [place] [address] Creatinine [Mass/Vol] 1.69 mg/dL High 0.73-1.22 [facility] Comment on above: Order Comment: Speci men Type: BLOOD SPECIMENOrdering Facility: [facility] Address: [address] [place] [address] Performed By: #### 2 532-0, 93856-9 ####[facility] LABCLIA [id number] [place] [address] ESTIMATED GLOMERULAR FILTRATION RATE 40 mL/min/1.73m??? Low >=60 [facility] Comment on above: Order Comment: Speci men Type: BLOOD SPECIMENOrdering Facility: [facility] Address: [address] [place] [address] Result Comment: Faye mated Glomerular Filtration Rate (eGFR) is calculated using the 2020 CKD-EPI creatinine equation. This equation utilizes serum creatinine, sex, and age as parameters. The creatinine assay has traceable calibration to isotope dilution-mass spectrometry. Refer to KDIGO guidelines for clinical interpretation. In patients with unstable renal function, e.g. those with acute kidney injury, the eGFR may not accurately reflect actual GFR. Performed By: #### 2 532-0, 83434-2 ####[facility] LABCLIA [id number] [place] [address] Glucose [Mass/Vol] 279 mg/dL High 74-99 [facility] Comment on above: Order Comment: Speciman men Type: BLOOD SPECIMENOrdering Facility: [facility] Address: [address] [place], [place] [address] Result Comment: The [place] [employer] (ADA) provides guidance for cutoff values for fasting glucose and random glucose. The ADA defines fasting as no caloric intake for at least 8 hours. Fasting plasma glucose results between 100 to 125 mg/dL indicate increased risk for diabetes (prediabetes).Fasting plasma glucose results greater than or equal to 126 mg/dL meet the criteria for diagnosis of diabetes. In the absence of unequivocal hyperglycemia, results should be confirmed by repeat testing. In a patient with classic symptoms of hyperglycemia or hyperglycemic crisis, random plasma glucose results greater than or equal to 200 mg/dL meet the criteria for diagnosis of diabetes.Reference: Standards of Medical Care in Diabetes 2016, [place] [employer]. Diabetes Care. 2016.39(Suppl 1). Performed By: #### 2 532-0, 85031-6 ####[facility] LABCLIA [id number] [place] [address] Potassium [Moles/Vol] 4.0 mmol/L Normal 3.7-5.1 [facility] Comment on above: Order Comment: Davi avendaño Type: BLOOD SPECIMENOrdering Facility: [facility] Address: [address] [place] [id number] Performed By: #### 2 532-0, 71236-2 ####[facility] LABCLIA [id number] [place] [address] Protein [Mass/Vol] 5.9 g/dL Low 6.3-8.0 [facility] Comment on above: Order Comment: Speci men Type: BLOOD SPECIMENOrdering Facility: [facility] Address: [address] [place] [address] Performed By: #### 2 532-0, 54622-8 ####[facility] LABCLIA [id number] [place] [address] Sodium [Moles/Vol] 143 mmol/L Normal 136-144 [facility] Comment on above: Order Comment: Speci men Type: BLOOD SPECIMENOrdering Facility: [facility] Address: [address] [place] [address] Performed By: #### 2 532-0, 70754-7 ####[facility] LABCLIA [id number] [place] [address] Urea nitrogen [Mass/Vol] 20 mg/dL Normal 9-24 [facility] Comment on above: Order Comment: Speci men Type: BLOOD SPECIMENOrdering Facility: [facility] Address: [address] [place] [address] Performed By: #### 2 532-0, 91103-4 ####[facility] LABCLIA [id number] [place] [address] HEMOGLOBIN AND HEMATOCRITon 02-04-2022 Hematocrit (Bld) [Volume fraction] 21.1 % Critically low 42.0-54.0 [facility] Comment on above: Performed By: #### T ZEHRA, PRBC #### [facility] [address] [place] [address] [address] Benito To Hemoglobin (Bld) [Mass/Vol] 6.8 g/dL Critically low 14.0-18.0 [facility] Comment on above: Performed By: #### T NS, PRBC #### [facility] [address] [place] [address] [address] Benito To LDH SerPl-cCncon 02-04-2022 LDH [Catalytic activity/Vol] 210 U/L Normal 135-225 [facility] Comment on above: Order Comment: Speci men Type: BLOOD SPECIMENOrdering Facility: [facility] Address: [address] [place] [address] Performed By: #### 2 532-0, 67836-6 ####[facility] LABCLIA [id number] [place] [address] TYPE AND SCREENon 02-04-2022 TYPE AND SCREEN Negative Normal [facility] Comment on above: Performed By: #### P RBC, TNS #### [facility] [address] [address] [address] Benito oT CBC W Auto Differential pane l (Bld)on 01-30-2022 Anisocytosis Ql (Bld) Present Normal [facility] Comment on above: Order Comment: Speci men Type: BLOOD SPECIMENOrdering Facility: [facility] Address: [address] [place], [place] [address] Performed By: #### 5 7021-8 ####[facility] LABCLIA [id number] [address] LABCLIA [id number] [place] [address] [place] Basophils/100 WBC (Bld) 0.9 % Normal [facility] Comment on above: Order Comment: Speci men Type: BLOOD SPECIMENOrdering Facility: [facility] Address: [address] [place], [place] [address] Performed By: #### 5 7021-8 ####[facility] LABCLIA [id number] [place] [address] LABCLIA [id number] [place] [address] [place] Dacrocytes LM Ql (Bld) Few Normal [facility] Comment on above: Order Comment: Speci men Type: BLOOD SPECIMENOrdering Facility: [facility] Address: [address] [place] [address] Performed By: #### 5 7021-8 ####[facility] LABCLIA [id number] [address] LABCLIA [id number] [place] [address] [place] Differential cell count method Nom (Bld) Manual Normal [facility] Comment on above: Order Comment: Speci men Type: BLOOD SPECIMENOrdering Facility: [facility] Address: [address] [place] [address] Performed By: #### 5 7021-8 ####[facility] LABCLIA [id number] [address] LABCLIA [id number] [place] [address] [place] Eosinophils (Bld) [#/Vol] 0.05 10*3/uL Normal <0.46 [facility] Comment on above: Order Comment: Speci men Type: BLOOD SPECIMENOrdering Facility: [facility] Address: [address] [place] [address] Performed By: #### 5 7021-8 ####[facility] LABCLIA [id number] [address] LABCLIA [id number] [place] [address] [place] Eosinophils/100 WBC (Bld) 1.8 % Normal [facility] Comment on above: Order Comment: Speci men Type: BLOOD SPECIMENOrdering Facility: [facility] Address: [address] [place] [address] Performed By: #### 5 7021-8 ####[facility] LABCLIA [id number] [address] LABCLIA [id number] [place] [address] [place] Erythrocyte distribution width (RBC) [Ratio] 23.6 % High 11.5-15.0 [facility] Comment on above: Order Comment: Speci men Type: BLOOD SPECIMENOrdering Facility: [facility] Address: [address] [place] [address] Performed By: #### 5 7021-8 ####[facility] LABCLIA [id number] [address] LABCLIA [id number] [place] [address] [place] Hematocrit (Bld) [Volume fraction] 23.5 % Low 39.0-51.0 [facility] Comment on above: Order Comment: Speci men Type: BLOOD SPECIMENOrdering Facility: [facility] Address: [address] [place] [address] Performed By: #### 5 7021-8 ####[facility] LABCLIA [id number] [address] LABCLIA [id number] [place] [address] [place] Hemoglobin (Bld) [Mass/Vol] 7.4 g/dL Low 13.0-17.0 [facility] Comment on above: Order Comment: Speci men Type: BLOOD SPECIMENOrdering Facility: [facility] Address: [address] [place] [address] Performed By: #### 5 7021-8 ####[facility] LABCLIA [id number] [address] LABCLIA [id number] [place] [address] [place] Lymphocytes (Bld) [#/Vol] 0.93 10*3/uL Low 1.00-4.00 [facility] Comment on above: Order Comment: Speci men Type: BLOOD SPECIMENOrdering Facility: [facility] Address: [address] [place] [address] Performed By: #### 5 7021-8 ####[facility] LABCLIA [id number] [address] LABCLIA [id number] [place] [address] [place] Lymphocytes/100 WBC (Bld) 36.3 % Normal [facility] Comment on above: Order Comment: Speci men Type: BLOOD SPECIMENOrdering Facility: [facility] Address: [address] [place] [address] Performed By: #### 5 7021-8 ####[facility] LABCLIA [id number] [address] LABCLIA [id number] [place] [address] [place] MCH (RBC) [Entitic mass] 34.1 pg High 26.0-34.0 [facility] Comment on above: Order Comment: Speci men Type: BLOOD SPECIMENOrdering Facility: [facility] Address: [address] [place] [address] Performed By: #### 5 7021-8 ####[facility] LABCLIA [id number] [address] LABCLIA [id number] [place] [address] [place] MCHC (RBC) [Mass/Vol] 31.5 g/dL Normal 30.5-36.0 [facility] Comment on above: Order Comment: Speci men Type: BLOOD SPECIMENOrdering Facility: [facility] Address: [address] [place] [address] Performed By: #### 5 7021-8 ####[facility] LABCLIA [id number] [place], [place] [address] LABCLIA [id number] [place] [address] [place] MCV (RBC) [Entitic vol] 108.3 fL High 80.0-100.0 [facility] Comment on above: Order Comment: Speci men Type: BLOOD SPECIMENOrdering Facility: [facility] Address: [address] [place] [address] Performed By: #### 5 7021-8 ####[facility] LABCLIA [id number] [address] LABCLIA [id number] [place] [address] [place] Neutrophils (Bld) [#/Vol] 1.15 10*3/uL Low 1.45-7.50 [facility] Comment on above: Order Comment: Speci men Type: BLOOD SPECIMENOrdering Facility: [facility] Address: [address] [place], [place] [address] Performed By: #### 5 7021-8 ####[facility] LABCLIA [id number] [address] LABCLIA [id number] [place] [address] [place] Neutrophils/100 WBC (Bld) 45.1 % Normal [facility] Comment on above: Order Comment: Speci men Type: BLOOD SPECIMENOrdering Facility: [facility] Address: [address] [place], [place] [address] Performed By: #### 5 7021-8 ####[facility] LABCLIA [id number] [address] LABCLIA [id number] [place] [address] [place] Nucleated RBC/100 WBC (Bld) [Ratio] 0.0 /100 WBC Normal [facility] Comment on above: Order Comment: Speci men Type: BLOOD SPECIMENOrdering Facility: [facility] Address: [address] [place] [address] Performed By: #### 5 7021-8 ####[facility] LABCLIA [id number] [address] LABCLIA [id number] [place] [address] [place] Ovalocytes LM Ql (Bld) Few Normal [facility] Comment on above: Order Comment: Speci men Type: BLOOD SPECIMENOrdering Facility: [facility] Address: [address] [place] [address] Performed By: #### 5 7021-8 ####[facility] LABCLIA [id number] [address] LABCLIA [id number] [place] [address] [place] PLATELET ESTIMATE Decreased Normal [facility] Comment on above: Order Comment: Speci men Type: BLOOD SPECIMENOrdering Facility: [facility] Address: [address] [place], [place] [address] Performed By: #### 5 7021-8 ####[facility] LABCLIA [id number] [address] LABCLIA [id number] [place] [address] [place] Platelet mean volume (Bld) [Entitic vol] 12.6 fL Normal 9.0-12.7 [facility] Comment on above: Order Comment: Speci men Type: BLOOD SPECIMENOrdering Facility: [facility] Address: [address] [place] [address] Performed By: #### 5 7021-8 ####[facility] LABCLIA [id number] [address] LABCLIA [id number] [place] [address] [place] Platelets (Bld) [#/Vol] 57 10*3/uL Low 150-400 [facility] Comment on above: Order Comment: Speci men Type: BLOOD SPECIMENOrdering Facility: [facility] Address: [address] [place] [address] Result Comment: Samp le checked for clot Performed By: #### 5 7021-8 ####[facility] LABCLIA [id number] [address] LABCLIA [id number] [place] [address] [place] Platelets agranular LM Ql (Bld) Occasional Normal [facility] Comment on above: Order Comment: Speci men Type: BLOOD SPECIMENOrdering Facility: [facility] Address: [address] [place] [address] Performed By: #### 5 7021-8 ####[facility] LABCLIA [id number] [address] LABCLIA [id number] [place] [address] [place] Polychromasia LM Ql (Bld) Slight Normal [facility] Comment on above: Order Comment: Speci men Type: BLOOD SPECIMENOrdering Facility: [facility] Address: [address] [place] [address] Performed By: #### 5 7021-8 ####[facility] LABCLIA [id number] [address] LABCLIA [id number] [place] [address] [place] RBC (Bld) [#/Vol] 2.17 10*6/uL Low 4.20-6.00 [facility] Comment on above: Order Comment: Speci men Type: BLOOD SPECIMENOrdering Facility: [facility] Address: [address] [place] [address] Performed By: #### 5 7021-8 ####[facility] LABCLIA [id number] [address] LABCLIA [id number] [place] [address] [place] RBC FRAGMENTS Few Abnormal None Seen [facility] Comment on above: Order Comment: Speci men Type: BLOOD SPECIMENOrdering Facility: [facility] Address: [address] [place] [address] Performed By: #### 5 7021-8 ####[facility] LABCLIA [id number] [address] LABCLIA [id number] [place] [address] [place] RED CELL MORPH Reviewed: see result s of individual morphologies Normal [facility] Comment on above: Order Comment: Speci men Type: BLOOD SPECIMENOrdering Facility: [facility] Address: [address] [place] [address] Performed By: #### 5 7021-8 ####[facility] LABCLIA [id number] [address] LABCLIA [id number] [place] [address] [place] Variant lymphocytes/100 WBC (Bld) 0.0 % Normal [facility] Comment on above: Order Comment: Speci men Type: BLOOD SPECIMENOrdering Facility: [facility] Address: [address] [place], [place] [address] Performed By: #### 5 7021-8 ####[facility] LABCLIA [id number] [address] LABCLIA [id number] [place] [address] [place] WAM - ABS BASO 0.02 k/uL Normal <0.11 [facility] Comment on above: Order Comment: Speci men Type: BLOOD SPECIMENOrdering Facility: [facility] Address: [address] [place] [address] Performed By: #### 5 7021-8 ####[facility] LABCLIA [id number] [address] LABCLIA [id number] [address] [place] WAM - ABS MONO 0.41 k/uL Normal <0.87 [facility] Comment on above: Order Comment: Speci men Type: BLOOD SPECIMENOrdering Facility: [facility] Address: [address] [place] [address] Performed By: #### 5 7021-8 ####[facility] LABCLIA [id number] [address] LABCLIA [id number] [address] [place] WAM - MONO% 15.9 % Normal [facility] Comment on above: Order Comment: Speci men Type: BLOOD SPECIMENOrdering Facility: [facility] Address: [address] [place] [address] Performed By: #### 5 7021-8 ####[facility] LABCLIA [id number] [address] LABCLIA [id number] [address] [place] WAM ABSOLUTE NRBC <0.01 Normal <0.01 [facility] Comment on above: Order Comment: Speci men Type: BLOOD SPECIMENOrdering Facility: [facility] Address: [address] [place] [address] Result Comment: This result was previously suppressed from the chart. Performed By: #### 5 7021-8 ####[facility] LABCLIA [id number] [place], [place] [address] LABCLIA [id number] [place] [id number] [place] WBC (Bld) [#/Vol] 2.55 10*3/uL Low 3.70-11.00 [facility] Comment on above: Order Comment: Speci men Type: BLOOD SPECIMENOrdering Facility: [facility] Address: [address] [place] [address] Performed By: #### 5 7021-8 ####[facility] LABCLIA [id number] [place], [place] [address] LABCLIA [id number] [place] [address] [place] [facility] Comprehensive metabolic 2000 panelon 01-30-2022 Albumin [Mass/Vol] 3.7 g/dL Low 3.9-4.9 [facility] Comment on above: Order Comment: Speci men Type: BLOOD SPECIMENOrdering Facility: [facility] Address: [address] [place], [place] [address] Performed By: #### 2 4323-8, 2532-0 ####[facility] LABCLIA [id number] [place] [address] ALP [Catalytic activity/Vol] 66 U/L Normal 38-113 [facility] Comment on above: Order Comment: Speci men Type: BLOOD SPECIMENOrdering Facility: [facility] Address: [address] [place], [place] [address] Performed By: #### 2 4323-8, 2532-0 ####[facility] LABCLIA [id number] [place] [address] ALT [Catalytic activity/Vol] 30 U/L Normal 10-54 [facility] Comment on above: Order Comment: Speci men Type: BLOOD SPECIMENOrdering Facility: [facility] Address: [address] [place], [place] [address] Performed By: #### 2 4323-8, 2531-0 ####[facility] LABCLIA [id number] [place] [address] Anion gap [Moles/Vol] 8 mmol/L Low 9-18 [facility] Comment on above: Order Comment: Speci men Type: BLOOD SPECIMENOrdering Facility: [facility] Address: [address] [place], [place] [address] Performed By: #### 2 4328, 2531-0 ####[facility] LABCLIA [id number] [place] [address] AST [Catalytic activity/Vol] 17 U/L Normal 14-40 [facility] Comment on above: Order Comment: Speci men Type: BLOOD SPECIMENOrdering Facility: [facility] Address: [address] [place] [address] Performed By: #### 2 4328, 2531-0 ####[facility] LABCLIA [id number] [place] [address] Bilirubin [Mass/Vol] 0.6 mg/dL Normal 0.2-1.3 [facility] Comment on above: Order Comment: Speci men Type: BLOOD SPECIMENOrdering Facility: [facility] Address: [address] [place], [place] [address] Performed By: #### 2 4328, 2531-0 ####[facility] LABCLIA [id number] [place] [address] Calcium [Mass/Vol] 8.9 mg/dL Normal 8.5-10.2 [facility] Comment on above: Order Comment: Speci men Type: BLOOD SPECIMENOrdering Facility: [facility] Address: [address] [place], [place] [address] Performed By: #### 2 4328, 2531-0 ####[facility] LABCLIA [id number] [place] [address] Chloride [Moles/Vol] 106 mmol/L High 97-105 [facility] Comment on above: Order Comment: Speci men Type: BLOOD SPECIMENOrdering Facility: [facility] Address: [address] [place], [place] [address] Performed By: #### 2 4323-8, 2531-0 ####[facility] LABCLIA [id number] [place] [address] CO2 [Moles/Vol] 28 mmol/L Normal 22-30 [facility] Comment on above: Order Comment: Speci men Type: BLOOD SPECIMENOrdering Facility: [facility] Address: [address] [place] [address] Performed By: #### 2 4323-8, 0 ####[facility] LABCLIA [id number] [place] [address] Creatinine [Mass/Vol] 1.72 mg/dL High 0.73-1.22 [facility] Comment on above: Order Comment: Speci men Type: BLOOD SPECIMENOrdering Facility: [facility] Address: [address] [place] [address] Performed By: #### 2 4323-8, 0 ####[facility] LABCLIA [id number] [place] [address] ESTIMATED GLOMERULAR FILTRATION RATE 39 mL/min/1.73m??? Low >=60 [facility] Comment on above: Order Comment: Speci men Type: BLOOD SPECIMENOrdering Facility: [facility] Address: [address] [place] [address] Result Comment: Faye mated Glomerular Filtration Rate (eGFR) is calculated using the 2020 CKD-EPI creatinine equation. This equation utilizes serum creatinine, sex, and age as parameters. The creatinine assay has traceable calibration to isotope dilution-mass spectrometry. Refer to KDIGO guidelines for clinical interpretation. In patients with unstable renal function, e.g. those with acute kidney injury, the eGFR may not accurately reflect actual GFR. Performed By: #### 2 4328, ####[facility] LABCLIA [id number] [place] [address] Glucose [Mass/Vol] 246 mg/dL High 74-99 [facility] Comment on above: Order Comment: Speci men Type: BLOOD SPECIMENOrdering Facility: [facility] Address: [address] [place], [place] [address] Result Comment: The [place] [employer] (ADA) provides guidance for cutoff values for fasting glucose and random glucose. The ADA defines fasting as no caloric intake for at least 8 hours. Fasting plasma glucose results between 100 to 125 mg/dL indicate increased risk for diabetes (prediabetes).Fasting plasma glucose results greater than or equal to 126 mg/dL meet the criteria for diagnosis of diabetes. In the absence of unequivocal hyperglycemia, results should be confirmed by repeat testing. In a patient with classic symptoms of hyperglycemia or hyperglycemic crisis, random plasma glucose results greater than or equal to 200 mg/dL meet the criteria for diagnosis of diabetes.Reference: Standards of Medical Care in Diabetes 2016, [place] [employer]. Diabetes Care. 2016.39(Suppl 1). Performed By: #### 2 43210-02, ####[facility] LABIA [id number] [place] [address] Potassium [Moles/Vol] 4.3 mmol/L Normal 3.7-5.1 [facility] Comment on above: Order Comment: Speci men Type: BLOOD SPECIMENOrdering Facility: [facility] Address: [address] [place] [address] Performed By: #### 2 4323-02, 0 ####[facility] LABIA [id number] [place] [address] Protein [Mass/Vol] 5.9 g/dL Low 6.3-8.0 [facility] Comment on above: Order Comment: Speci men Type: BLOOD SPECIMENOrdering Facility: [facility] Address: [address] [place] [address] Performed By: #### 2 4323-02, 2532-0 ####[facility] LABCLIA [id number] [place] [address] Sodium [Moles/Vol] 142 mmol/L Normal 136-144 [facility] Comment on above: Order Comment: Speci men Type: BLOOD SPECIMENOrdering Facility: [facility] Address: [address] [place] [address] Performed By: #### 2 4323-8, 2531-0 ####[facility] LABIA [id number] [place] [address] Urea nitrogen [Mass/Vol] 31 mg/dL High 9-24 [facility] Comment on above: Order Comment: Speci men Type: BLOOD SPECIMENOrdering Facility: [facility] Address: [address] [place] [address] Performed By: #### 2 4323-8, 2531-0 ####[facility] LABIA [id number] [place] [id number] LDH SerPl-cCncon 01-30-2022 LDH [Catalytic activity/Vol] 221 U/L Normal 135-225 [facility] Comment on above: Order Comment: Speci men Type: BLOOD SPECIMENOrdering Facility: [facility] Address: [address] [place] [address] Performed By: #### 2 4323-8, 2531-0 ####[facility] LABIA [id number] [place] [id number] PRBC LEUKOREDUCEDon 01-25-20 22 PRBC LEUKOREDUCED Cross Match Result Compatible Unit Blood Type A Neg Unit Number [id number] Status Information Transfused Product ID Red Blood Cells Product Code [id number] Normal [facility] Comment on above: Performed By: #### T NS, PRBC #### [facility] [address] [place] [address] Dr. Benito To CBC W Auto Differential pane l (Bld)on 01-21-2022 Anisocytosis Ql (Bld) Present Normal [facility] Comment on above: Order Comment: Speci men Type: BLOOD SPECIMENOrdering Facility: [facility] Address: [address] [place] [address] Performed By: #### 5 7021-8 ####[facility] LABCLIA [id number] [address] LABCLIA [id number] [place] [address] Basophils/100 WBC (Bld) 0.0 % Normal [facility] Comment on above: Order Comment: Speci men Type: BLOOD SPECIMENOrdering Facility: [facility] Address: [address] [place] [address] Performed By: #### 5 7021-8 ####[facility] LABCLIA [id number] [address] LABCLIA [id number] [place] [address] Eosinophils (Bld) [#/Vol] 0.00 10*3/uL Normal <0.46 [facility] Comment on above: Order Comment: Speci men Type: BLOOD SPECIMENOrdering Facility: [facility] Address: [address] [place] [address] Performed By: #### 5 7021-8 ####[facility] LABCLIA [id number] [address] LABCLIA [id number] [place] [address] Eosinophils/100 WBC (Bld) 0.0 % Normal [facility] Comment on above: Order Comment: Speci men Type: BLOOD SPECIMENOrdering Facility: [facility] Address: [address] [place] [address] Performed By: #### 5 7021-8 ####[facility] LABCLIA [id number] LABCLIA [id number] [place] [address] Erythrocyte distribution width (RBC) [Ratio] 24.2 % High 11.5-15.0 [facility] Comment on above: Order Comment: Speci men Type: BLOOD SPECIMENOrdering Facility: [facility] Address: [address] [place] [address] Performed By: #### 5 7021-8 ####[facility] LABCLIA [id number] [address] LABCLIA [id number] [place] [address] Hematocrit (Bld) [Volume fraction] 28.3 % Low 39.0-51.0 [facility] Comment on above: Order Comment: Speci men Type: BLOOD SPECIMENOrdering Facility: [facility] Address: [address] [place] [address] Performed By: #### 5 7021-8 ####[facility] LABCLIA [id number] [address] LABCLIA [id number] [place] [address] Hemoglobin (Bld) [Mass/Vol] 9.0 g/dL Low 13.0-17.0 [facility] Comment on above: Order Comment: Speci men Type: BLOOD SPECIMENOrdering Facility: [facility] Address: [address] [place] [address] Performed By: #### 5 7021-8 ####[facility] LABCLIA [id number] [address] LABCLIA [id number] [place] [address] Lymphocytes (Bld) [#/Vol] 0.73 10*3/uL Low 1.00-4.00 [facility] Comment on above: Order Comment: Speci men Type: BLOOD SPECIMENOrdering Facility: [facility] Address: [address] [place] [address] Performed By: #### 5 7021-8 ####[facility] LABCLIA [id number] [address] LABCLIA [id number] [place] [address] Lymphocytes/100 WBC (Bld) 22.0 % Normal [facility] Comment on above: Order Comment: Speci men Type: BLOOD SPECIMENOrdering Facility: [facility] Address: [address] [place] [address] Performed By: #### 5 7021-8 ####[facility] LABCLIA [id number] [address] LABCLIA [id number] [place] [address] MCH (RBC) [Entitic mass] 33.7 pg Normal 26.0-34.0 [facility] Comment on above: Order Comment: Speci men Type: BLOOD SPECIMENOrdering Facility: [facility] Address: [address] [place] [address] Performed By: #### 5 7021-8 ####[facility] LABCLIA [id number] [address] LABCLIA [id number] [place] [address] MCHC (RBC) [Mass/Vol] 31.8 g/dL Normal 30.5-36.0 [facility] Comment on above: Order Comment: Speci men Type: BLOOD SPECIMENOrdering Facility: [facility] Address: [address] [place] [address] Performed By: #### 5 7021-8 ####[facility] LABCLIA [id number] [address] LABCLIA [id number] [place] [address] MCV (RBC) [Entitic vol] 106.0 fL High 80.0-100.0 [facility] Comment on above: Order Comment: Speci men Type: BLOOD SPECIMENOrdering Facility: [facility] Address: [address] [place] [address] Performed By: #### 5 7021-8 ####[facility] LABCLIA [id number] [address] LABCLIA [id number] [place] [address] Neutrophils (Bld) [#/Vol] 2.21 10*3/uL Normal 1.45-7.50 [facility] Comment on above: Order Comment: Speci men Type: BLOOD SPECIMENOrdering Facility: [facility] Address: [address] [place] [address] Performed By: #### 5 7021-8 ####[facility] LABCLIA [id number] [address] LABCLIA [id number] [place] [address] Neutrophils/100 WBC (Bld) 67.0 % Normal [facility] Comment on above: Order Comment: Speci men Type: BLOOD SPECIMENOrdering Facility: [facility] Address: [address] [place] [address] Performed By: #### 5 7021-8 ####[facility] LABCLIA [id number] [address] LABCLIA [id number] [place] [address] Nucleated RBC/100 WBC (Bld) [Ratio] 0.0 /100 WBC Normal [facility] Comment on above: Order Comment: Speci men Type: BLOOD SPECIMENOrdering Facility: [facility] Address: [address] [place] [address] Performed By: #### 5 7021-8 ####[facility] LABCLIA [id number] [address] [address] [facility] LABCLIA [id number] [place] [address] Ovalocytes LM Ql (Bld) Few Normal [facility] Comment on above: Order Comment: Speci men Type: BLOOD SPECIMENOrdering Facility: [facility] Address: [address] [place] [address] Performed By: #### 5 7021-8 ####[facility] LABCLIA [id number] [address] LABCLIA [id number] [place] [address] PLATELET ESTIMATE Adequate Normal [facility] Comment on above: Order Comment: Speci men Type: BLOOD SPECIMENOrdering Facility: [facility] Address: [address] [place] [address] Performed By: #### 5 7021-8 ####[facility] LABCLIA [id number] [address] LABCLIA [id number] [place] [address] Platelet mean volume (Bld) [Entitic vol] Normal [facility] Comment on above: Order Comment: Speci men Type: BLOOD SPECIMENOrdering Facility: [facility] Address: [address] [place] [address] Result Comment: Unab le to Report. Performed By: #### 5 7021-8 ####[facility] LABCLIA [id number] [address] [facility] LABCLIA [id number] [place] [address] Platelets (Bld) [#/Vol] 170 10*3/uL Normal 150-400 [facility] Comment on above: Order Comment: Speci men Type: BLOOD SPECIMENOrdering Facility: [facility] Address: [address] [place] [address] Result Comment: Samp le checked for clot Performed By: #### 5 7021-8 ####[facility] LABCLIA [id number] [address] LABCLIA [id number] [place] [address] Polychromasia LM Ql (Bld) Slight Normal [facility] Comment on above: Order Comment: Speci men Type: BLOOD SPECIMENOrdering Facility: [facility] Address: [address] [place] [address] Performed By: #### 5 7021-8 ####[facility] LABCLIA [id number] [address] LABCLIA [id number] [place] [address] RBC (Bld) [#/Vol] 2.67 10*6/uL Low 4.20-6.00 [facility] Comment on above: Order Comment: Speci men Type: BLOOD SPECIMENOrdering Facility: [facility] Address: [address] [place] [address] Performed By: #### 5 7021-8 ####[facility] LABCLIA [id number] [address] LABCLIA [id number] [place] [address] RBC FRAGMENTS Few Abnormal None Seen [facility] Comment on above: Order Comment: Speci men Type: BLOOD SPECIMENOrdering Facility: [facility] Address: [address] [place] [address] Performed By: #### 5 7021-8 ####[facility] LABCLIA [id number] [address] LABCLIA [id number] [place] [address] RED CELL MORPH Reviewed: see result s of individual morphologies Normal [facility] Comment on above: Order Comment: Speci men Type: BLOOD SPECIMENOrdering Facility: [facility] Address: [address] [place] [address] Performed By: #### 5 7021-8 ####[facility] LABCLIA [id number] [address] LABCLIA [id number] [place] [address] WAM - ABS BASO 0.00 k/uL Normal <0.11 [facility] Comment on above: Order Comment: Speci men Type: BLOOD SPECIMENOrdering Facility: [facility] Address: [address] [place] [address] Performed By: #### 5 7021-8 ####[facility] LABCLIA [id number] [address] LABCLIA [id number] [place] [address] WAM - ABS MONO 0.30 k/uL Normal <0.87 [facility] Comment on above: Order Comment: Speci men Type: BLOOD SPECIMENOrdering Facility: [facility] Address: [address] [place] [address] Performed By: #### 5 7021-8 ####[facility] LABCLIA [id number] [place] [id number] [facility] LABCLIA [id number] [place] [address] WAM - MONO% 9.0 % Normal [facility] Comment on above: Order Comment: Speci men Type: BLOOD SPECIMENOrdering Facility: [facility] Address: [address] [place] [address] Performed By: #### 5 7021-8 ####[facility] LABCLIA [id number] [address] LABCLIA [id number] [place] [address] WAM ABSOLUTE NRBC <0.01 Normal <0.01 [facility] Comment on above: Order Comment: Speci men Type: BLOOD SPECIMENOrdering Facility: [facility] Address: [address] [place] [address] Performed By: #### 5 7021-8 ####[facility] LABCLIA [id number] [address] LABCLIA [id number] [place] [address] WBC (Bld) [#/Vol] 3.30 10*3/uL Low 3.70-11.00 [facility] Comment on above: Order Comment: Speci men Type: BLOOD SPECIMENOrdering Facility: [facility] Address: [address] [place] [address] Result Comment: Resu lts checked and verified. No clot detected Performed By: #### 5 7021-8 ####[facility] LABCLIA [id number] [address] LABCLIA [id number] [place] [address] WBC Left Shift Ql (Bld) Present Normal [facility] Comment on above: Order Comment: Speci men Type: BLOOD SPECIMENOrdering Facility: [facility] Address: [address] [place] [address] Performed By: #### 5 7021-8 ####[facility] LABCLIA [id number] [facility] [place]GACQWPYDA[place] [id number] [facility] LABCLIA [id number] [place] [address] Comprehensive metabolic 2000 panelon 01-21-2022 Albumin [Mass/Vol] 3.9 g/dL Normal 3.9-4.9 [facility] Comment on above: Order Comment: Speci men Type: BLOOD SPECIMENOrdering Facility: [facility] Address: [address] [place] [address] Performed By: #### 2 4323-8 ####[facility] LABCLIA [id number] [place] [address] ALP [Catalytic activity/Vol] 62 U/L Normal 38-113 [facility] Comment on above: Order Comment: Speci men Type: BLOOD SPECIMENOrdering Facility: [facility] Address: [address] [place] [address] Performed By: #### 2 4323-8 ####[facility] LABCLIA [id number] [place] [address] ALT [Catalytic activity/Vol] 40 U/L Normal 10-54 [facility] Comment on above: Order Comment: Speci men Type: BLOOD SPECIMENOrdering Facility: [facility] Address: [address] [place], [place] [address] Performed By: #### 2 4323-8 ####[facility] LABCLIA [id number] [place] [address] Anion gap [Moles/Vol] 10 mmol/L Normal 9-18 [facility] Comment on above: Order Comment: Speci men Type: BLOOD SPECIMENOrdering Facility: [facility] Address: [address] [place], [place] [address] Performed By: #### 2 4323-8 ####[facility] LABCLIA [id number] [place] [address] AST [Catalytic activity/Vol] 19 U/L Normal 14-40 [facility] Comment on above: Order Comment: Speci men Type: BLOOD SPECIMENOrdering Facility: [facility] Address: [address] [place] [address] Performed By: #### 2 4323-8 ####[facility] LABCLIA [id number] [place] [address] Bilirubin [Mass/Vol] 0.8 mg/dL Normal 0.2-1.3 [facility] Comment on above: Order Comment: Speci men Type: BLOOD SPECIMENOrdering Facility: [facility] Address: [address] [place] [address] Performed By: #### 2 4323-8 ####[facility] LABCLIA [id number] [place] [address] Calcium [Mass/Vol] 8.8 mg/dL Normal 8.5-10.2 [facility] Comment on above: Order Comment: Speci men Type: BLOOD SPECIMENOrdering Facility: [facility] Address: [address] [place] [address] Performed By: #### 2 4323-8 ####[facility] LABCLIA [id number] [place] [address] Chloride [Moles/Vol] 101 mmol/L Normal 97-105 [facility] Comment on above: Order Comment: Speci men Type: BLOOD SPECIMENOrdering Facility: [facility] Address: [address] [place] [address] Performed By: #### 2 4323-8 ####[facility] LABCLIA [id number] [place] [address] CO2 [Moles/Vol] 31 mmol/L High 22-30 [facility] Comment on above: Order Comment: Speci men Type: BLOOD SPECIMENOrdering Facility: [facility] Address: [address] [place], [place] [address] Performed By: #### 2 4323-8 ####[facility] LABCLIA [id number] [place] [address] Creatinine [Mass/Vol] 1.95 mg/dL High 0.73-1.22 [facility] Comment on above: Order Comment: Speci men Type: BLOOD SPECIMENOrdering Facility: [facility] Address: [address] [place], [place] [address] Performed By: #### 2 4323-8 ####[facility] LABCLIA [id number] [place] [address] ESTIMATED GLOMERULAR FILTRATION RATE 34 mL/min/1.73m??? Low >=60 [facility] Comment on above: Order Comment: Speci men Type: BLOOD SPECIMENOrdering Facility: [facility] Address: [address] [place] [address] Result Comment: Faye mated Glomerular Filtration Rate (eGFR) is calculated using the 2020 CKD-EPI creatinine equation. This equation utilizes serum creatinine, sex, and age as parameters. The creatinine assay has traceable calibration to isotope dilution-mass spectrometry. Refer to KDIGO guidelines for clinical interpretation. In patients with unstable renal function, e.g. those with acute kidney injury, the eGFR may not accurately reflect actual GFR. Performed By: #### 2 4323-8 ####[facility] LABCLIA [id number] [place] [address] Glucose [Mass/Vol] 231 mg/dL High 74-99 [facility] Comment on above: Order Comment: Speci men Type: BLOOD SPECIMENOrdering Facility: [facility] Address: [address] [place] [address] Result Comment: The [place] [employer] (ADA) provides guidance for cutoff values for fasting glucose and random glucose. The ADA defines fasting as no caloric intake for at least 8 hours. Fasting plasma glucose results between 100 to 125 mg/dL indicate increased risk for diabetes (prediabetes).Fasting plasma glucose results greater than or equal to 126 mg/dL meet the criteria for diagnosis of diabetes. In the absence of unequivocal hyperglycemia, results should be confirmed by repeat testing. In a patient with classic symptoms of hyperglycemia or hyperglycemic crisis, random plasma glucose results greater than or equal to 200 mg/dL meet the criteria for diagnosis of diabetes.Reference: Standards of Medical Care in Diabetes 2016, [place] [employer]. Diabetes Care. 2016.39(Suppl 1). Performed By: #### 2 4323-8 ####[facility] LABCLIA [id number] [place] [address] Potassium [Moles/Vol] 3.6 mmol/L Low 3.7-5.1 [facility] Comment on above: Order Comment: Speci men Type: BLOOD SPECIMENOrdering Facility: [facility] Address: [address] [place] [address] Performed By: #### 2 4323-8 ####[facility] LABCLIA [id number] [place] [address] Protein [Mass/Vol] 6.1 g/dL Low 6.3-8.0 [facility] Comment on above: Order Comment: Speci men Type: BLOOD SPECIMENOrdering Facility: [facility] Address: [address] [place] [address] Performed By: #### 2 4323-8 ####[facility] LABCLIA [id number] [place] [address] Sodium [Moles/Vol] 142 mmol/L Normal 136-144 [facility] Comment on above: Order Comment: Speci men Type: BLOOD SPECIMENOrdering Facility: [facility] Address: [address] [address] Performed By: #### 2 4323-8 ####[facility] LABIA [id number] [place] [address] Urea nitrogen [Mass/Vol] 39 mg/dL High 9-24 [facility] Comment on above: Order Comment: Speci men Type: BLOOD SPECIMENOrdering Facility: [facility] Address: [address] [address] Performed By: #### 2 4323-8 ####[facility] LABCLIA [id number] [place] [address] Albumin [Mass/Vol] 3.9 g/dL 3.9 - 4.9 g/dL [facility] ALP [Catalytic activity/Vol] 62 U/L 38 - 113 U/L [facility] ALT [Catalytic activity/Vol] 40 U/L 10 - 54 U/L [facility] Anion gap [Moles/Vol] 10 mmol/L 9 - 18 mmol/L [facility] AST [Catalytic activity/Vol] 19 U/L 14 - 40 U/L [facility] Bilirubin [Mass/Vol] 0.8 mg/dL 0.2 - 1.3 mg/dL [facility] Calcium [Mass/Vol] 8.8 mg/dL 8.5 - 10.2 mg/dL [facility] Chloride [Moles/Vol] 101 mmol/L 97 - 105 mmol/L [facility] CO2 [Moles/Vol] 31 mmol/L High 22 - 30 mmol/L [facility] Creatinine [Mass/Vol] 1.95 mg/dL High 0.73 - 1.22 mg/dL [facility] Estimated Glomerular Filtration Rate 34 mL/min/1.73m Low >=60 mL/min/1.73m [facility] Glucose [Mass/Vol] 231 mg/dL High 74 - 99 mg/dL [facility] Potassium [Moles/Vol] 3.6 mmol/L Low 3.7 - 5.1 mmol/L [facility] Protein [Mass/Vol] 6.1 g/dL Low 6.3 - 8.0 g/dL [facility] Sodium [Moles/Vol] 142 mmol/L 136 - 144 mmol/L [facility] Urea nitrogen [Mass/Vol] 39 mg/dL High 9 - 24 mg/dL [facility] Comprehensive metabolic 2000 panelon 01-18-2022 Albumin [Mass/Vol] 4.1 g/dL Normal 3.9-4.9 [facility] Comment on above: Order Comment: Speci men Type: BLOOD SPECIMENOrdering Facility: [facility] Address: [address] [place], [place] [address] [address] Performed By: #### 2 4323-8 ####[facility] LABCLIA [id number] [place] [address] ALP [Catalytic activity/Vol] 62 U/L Normal 38-113 [facility] Comment on above: Order Comment: Speci men Type: BLOOD SPECIMENOrdering Facility: [facility] Address: [address] [place] [address] Performed By: #### 2 4323-8 ####[facility] LABCLIA [id number] [place] [address] ALT [Catalytic activity/Vol] 24 U/L Normal 10-54 [facility] Comment on above: Order Comment: Speci men Type: BLOOD SPECIMENOrdering Facility: [facility] Address: [address] [place] [address] Performed By: #### 2 4323-8 ####[facility] LABCLIA [id number] [place] [address] Anion gap [Moles/Vol] 10 mmol/L Normal 9-18 [facility] Comment on above: Order Comment: Speci men Type: BLOOD SPECIMENOrdering Facility: [facility] Address: [address] [place] [address] Performed By: #### 2 4323-8 ####[facility] LABCLIA [id number] [place] [address] AST [Catalytic activity/Vol] 12 U/L Low 14-40 [facility] Comment on above: Order Comment: Speci men Type: BLOOD SPECIMENOrdering Facility: [facility] Address: [address] [place] [address] Performed By: #### 2 4323-8 ####[facility] LABCLIA [id number] [place] [address] Bilirubin [Mass/Vol] 0.6 mg/dL Normal 0.2-1.3 [facility] Comment on above: Order Comment: Speci men Type: BLOOD SPECIMENOrdering Facility: [facility] Address: [address] [place] [address] Performed By: #### 2 4323-8 ####[facility] LABCLIA [id number] [place] [address] Calcium [Mass/Vol] 9.4 mg/dL Normal 8.5-10.2 [facility] Comment on above: Order Comment: Speci men Type: BLOOD SPECIMENOrdering Facility: [facility] Address: [address] [place] [address] Performed By: #### 2 4323-8 ####[facility] LABCLIA [id number] [place] [address] Chloride [Moles/Vol] 103 mmol/L Normal 97-105 [facility] Comment on above: Order Comment: Speci men Type: BLOOD SPECIMENOrdering Facility: [facility] Address: [address] [place] [address] Performed By: #### 2 4323-8 ####[facility] LABCLIA [id number] [place] [address] CO2 [Moles/Vol] 30 mmol/L Normal 22-30 [facility] Comment on above: Order Comment: Speci men Type: BLOOD SPECIMENOrdering Facility: [facility] Address: [address] [place] [address] Performed By: #### 2 4323-8 ####[facility] LABCLIA [id number] [place] [address] Creatinine [Mass/Vol] 2.14 mg/dL High 0.73-1.22 [facility] Comment on above: Order Comment: Speci men Type: BLOOD SPECIMENOrdering Facility: [facility] Address: [address] [place] [address] Performed By: #### 2 4323-8 ####[facility] LABCLIA [id number] [place] [address] ESTIMATED GLOMERULAR FILTRATION RATE 30 mL/min/1.73m??? Low >=60 [facility] Comment on above: Order Comment: Davi avendaño Type: BLOOD SPECIMENOrdering Facility: [facility] Address: [address] [place] [address] Result Comment: Faye mated Glomerular Filtration Rate (eGFR) is calculated using the 2020 CKD-EPI creatinine equation. This equation utilizes serum creatinine, sex, and age as parameters. The creatinine assay has traceable calibration to isotope dilution-mass spectrometry. Refer to KDIGO guidelines for clinical interpretation. In patients with unstable renal function, e.g. those with acute kidney injury, the eGFR may not accurately reflect actual GFR. Performed By: #### 2 4323-8 ####[facility] LABCLIA [id number] [place] [address] Glucose [Mass/Vol] 182 mg/dL High 74-99 [facility] Comment on above: Order Comment: Davi avendaño Type: BLOOD SPECIMENOrdering Facility: [facility] Address: [address] [place] [address] Result Comment: The [place] [employer] (ADA) provides guidance for cutoff values for fasting glucose and random glucose. The ADA defines fasting as no caloric intake for at least 8 hours. Fasting plasma glucose results between 100 to 125 mg/dL indicate increased risk for diabetes (prediabetes).Fasting plasma glucose results greater than or equal to 126 mg/dL meet the criteria for diagnosis of diabetes. In the absence of unequivocal hyperglycemia, results should be confirmed by repeat testing. In a patient with classic symptoms of hyperglycemia or hyperglycemic crisis, random plasma glucose results greater than or equal to 200 mg/dL meet the criteria for diagnosis of diabetes.Reference: Standards of Medical Care in Diabetes 2016, [employer] [place] [employer]. Diabetes Care. 2016.39(Suppl 1). Performed By: #### 2 4323-8 ####[facility] LABCLIA [id number] [place] [address] Potassium [Moles/Vol] 3.8 mmol/L Normal 3.7-5.1 [facility] Comment on above: Order Comment: Davi avendaño Type: BLOOD SPECIMENOrdering Facility: [facility] Address: [address] [place] [address] Performed By: #### 2 4323-8 ####[facility] LABCLIA [id number] [place] [address] Protein [Mass/Vol] 6.4 g/dL Normal 6.3-8.0 [facility] Comment on above: Order Comment: Speci men Type: BLOOD SPECIMENOrdering Facility: [facility] Address: [address] [place] [address] Performed By: #### 2 4323-8 ####[facility] LABCLIA [id number] [place] [address] Sodium [Moles/Vol] 143 mmol/L Normal 136-144 [facility] Comment on above: Order Comment: Speci men Type: BLOOD SPECIMENOrdering Facility: [facility] Address: [address] [place] [address] Performed By: #### 2 4323-8 ####[facility] LABCLIA [id number] [place] [address] Urea nitrogen [Mass/Vol] 45 mg/dL High 9-24 [facility] Comment on above: Order Comment: Speci men Type: BLOOD SPECIMENOrdering Facility: [facility] Address: [address] [place] [address] Performed By: #### 2 4323-8 ####[facility] LABCLIA [id number] [place] [address] Albumin [Mass/Vol] 4.1 g/dL 3.9 - 4.9 g/dL [facility] ALP [Catalytic activity/Vol] 62 U/L 38 - 113 U/L [facility] ALT [Catalytic activity/Vol] 24 U/L 10 - 54 U/L [facility] Anion gap [Moles/Vol] 10 mmol/L 9 - 18 mmol/L [facility] AST [Catalytic activity/Vol] 12 U/L Low 14 - 40 U/L [facility] Bilirubin [Mass/Vol] 0.6 mg/dL 0.2 - 1.3 mg/dL [facility] Calcium [Mass/Vol] 9.4 mg/dL 8.5 - 10.2 mg/dL [facility] Chloride [Moles/Vol] 103 mmol/L 97 - 105 mmol/L [facility] CO2 [Moles/Vol] 30 mmol/L 22 - 30 mmol/L [facility] Creatinine [Mass/Vol] 2.14 mg/dL High 0.73 - 1.22 mg/dL [facility] Estimated Glomerular Filtration Rate 30 mL/min/1.73m Low >=60 mL/min/1.73m [facility] Glucose [Mass/Vol] 182 mg/dL High 74 - 99 mg/dL [facility] Potassium [Moles/Vol] 3.8 mmol/L 3.7 - 5.1 mmol/L [facility] Protein [Mass/Vol] 6.4 g/dL 6.3 - 8.0 g/dL [facility] Sodium [Moles/Vol] 143 mmol/L 136 - 144 mmol/L [facility] Urea nitrogen [Mass/Vol] 45 mg/dL High 9 - 24 mg/dL [facility] HEMOGLOBIN AND HEMATOCRITon 01-15-2022 Hematocrit (Bld) [Volume fraction] 24.9 % Critically low 42.0-54.0 [facility] Comment on above: Performed By: #### T ZEHRA, PRBC #### [facility] [address] [place] [address] Dr. Benito To Hemoglobin (Bld) [Mass/Vol] 7.7 g/dL Critically low 14.0-18.0 [facility] Comment on above: Performed By: #### T ZEHRA, PRBC #### [facility] [address] [address] [address] Benito To TYPE AND SCREENon 01-15-2022 TYPE AND SCREEN Negative Normal [facility] Comment on above: Performed By: #### T ZEHRA, PRBC #### [facility] [address] [place] [address] Dr. Benito To CBC W Auto Differential pane l (Bld)on 01-14-2022 Anisocytosis Ql (Bld) Present Normal [facility] Comment on above: Order Comment: Speci men Type: BLOOD SPECIMENOrdering Facility: [facility] Address: [address] [place] [address] Performed By: #### 5 7021-8 ####[facility] LABCLIA [id number] [address] LABCLIA [id number] [place] [address] [place] Basophils/100 WBC (Bld) 4.0 % Normal [facility] Comment on above: Order Comment: Speci men Type: BLOOD SPECIMENOrdering Facility: [facility] Address: [address] [place] [address] Performed By: #### 5 7021-8 ####[facility] LABCLIA [id number] [address] LABCLIA [id number] [place] [address] [place] Differential cell count method Nom (Bld) Manual Normal [facility] Comment on above: Order Comment: Speci men Type: BLOOD SPECIMENOrdering Facility: [facility] Address: [address] [place] [address] Performed By: #### 5 7021-8 ####[facility] LABCLIA [id number] [address] LABCLIA [id number] [place] [address] [place] Eosinophils (Bld) [#/Vol] 0.00 10*3/uL Normal <0.46 [facility] Comment on above: Order Comment: Speci men Type: BLOOD SPECIMENOrdering Facility: [facility] Address: [address] [place] [address] Performed By: #### 5 7021-8 ####[facility] LABCLIA [id number] [address] LABCLIA [id number] [place] [address] [place] Eosinophils/100 WBC (Bld) 0.0 % Normal [facility] Comment on above: Order Comment: Speci men Type: BLOOD SPECIMENOrdering Facility: [facility] Address: [address] [place] [address] Performed By: #### 5 7021-8 ####[facility] LABCLIA [id number] [address] LABCLIA [id number] [place] [address] [place] Erythrocyte distribution width (RBC) [Ratio] 23.8 % High 11.5-15.0 [facility] Comment on above: Order Comment: Speci men Type: BLOOD SPECIMENOrdering Facility: [facility] Address: [address] [place] [address] Performed By: #### 5 7021-8 ####[facility] LABCLIA [id number] [address] LABCLIA [id number] [place] [address] [place] Giant platelets LM Ql (Bld) Occasional Normal [facility] Comment on above: Order Comment: Speci men Type: BLOOD SPECIMENOrdering Facility: [facility] Address: [address] [place] [address] Performed By: #### 5 7021-8 ####[facility] LABCLIA [id number] [address] LABCLIA [id number] [place] [address] [place] Hematocrit (Bld) [Volume fraction] 23.4 % Low 39.0-51.0 [facility] Comment on above: Order Comment: Speci men Type: BLOOD SPECIMENOrdering Facility: [facility] Address: [address] [place] [address] Performed By: #### 5 7021-8 ####[facility] LABCLIA [id number] [address] LABCLIA [id number] [place] [address] [place] Hemoglobin (Bld) [Mass/Vol] 7.3 g/dL Low 13.0-17.0 [facility] Comment on above: Order Comment: Speci men Type: BLOOD SPECIMENOrdering Facility: [facility] Address: [address] [place] [address] Performed By: #### 5 7021-8 ####[facility] LABCLIA [id number] [address] LABCLIA [id number] [place] [address] [place] Lymphocytes (Bld) [#/Vol] 0.87 10*3/uL Low 1.00-4.00 [facility] Comment on above: Order Comment: Speci men Type: BLOOD SPECIMENOrdering Facility: [facility] Address: [address] [place] [address] Performed By: #### 5 7021-8 ####[facility] LABCLIA [id number] [address] LABCLIA [id number] [place] [address] [place] Lymphocytes/100 WBC (Bld) 45.0 % Normal [facility] Comment on above: Order Comment: Speci men Type: BLOOD SPECIMENOrdering Facility: [facility] Address: [address] [place], [place] [address] Performed By: #### 5 7021-8 ####[facility] LABCLIA [id number] [address] LABCLIA [id number] [place] [address] [place] MCH (RBC) [Entitic mass] 34.9 pg High 26.0-34.0 [facility] Comment on above: Order Comment: Speci men Type: BLOOD SPECIMENOrdering Facility: [facility] Address: [address] [place] [address] Performed By: #### 5 7021-8 ####[facility] LABCLIA [id number] [address] LABCLIA [id number] [place] [address] [place] MCHC (RBC) [Mass/Vol] 31.2 g/dL Normal 30.5-36.0 [facility] Comment on above: Order Comment: Speci men Type: BLOOD SPECIMENOrdering Facility: [facility] Address: [address] [place] [address] Performed By: #### 5 7021-8 ####[facility] LABCLIA [id number] [address] LABCLIA [id number] [place] [address] [place] MCV (RBC) [Entitic vol] 112.0 fL High 80.0-100.0 [facility] Comment on above: Order Comment: Speci men Type: BLOOD SPECIMENOrdering Facility: [facility] Address: [address] [place], [place] [address] Performed By: #### 5 7021-8 ####[facility] LABCLIA [id number] [address] LABCLIA [id number] [place] [address] [place] Neutrophils (Bld) [#/Vol] 0.70 10*3/uL Low 1.45-7.50 [facility] Comment on above: Order Comment: Speci men Type: BLOOD SPECIMENOrdering Facility: [facility] Address: [address] [place], [place] [address] Performed By: #### 5 7021-8 ####[facility] LABCLIA [id number] [address] LABCLIA [id number] [place] [address] [place] Neutrophils/100 WBC (Bld) 36.0 % Normal [facility] Comment on above: Order Comment: Speci men Type: BLOOD SPECIMENOrdering Facility: [facility] Address: [address] [place], [place] [address] Performed By: #### 5 7021-8 ####[facility] LABCLIA [id number] [address] LABCLIA [id number] [place] [address] [place] Nucleated RBC/100 WBC (Bld) [Ratio] 0.0 /100 WBC Normal [facility] Comment on above: Order Comment: Speci men Type: BLOOD SPECIMENOrdering Facility: [facility] Address: [address] [place] [address] Performed By: #### 5 7021-8 ####[facility] LABCLIA [id number] [address] LABCLIA [id number] [place] [address] [place] Ovalocytes LM Ql (Bld) Few Normal [facility] Comment on above: Order Comment: Speci men Type: BLOOD SPECIMENOrdering Facility: [facility] Address: [address] [place] [address] Performed By: #### 5 7021-8 ####[facility] LABCLIA [id number] [address] LABCLIA [id number] [place] [address] [place] PLATELET ESTIMATE Adequate Normal [facility] Comment on above: Order Comment: Speci men Type: BLOOD SPECIMENOrdering Facility: [facility] Address: [address] [place] [address] Performed By: #### 5 7021-8 ####[facility] LABCLIA [id number] [address] LABCLIA [id number] [place] [address] [place] Platelet mean volume (Bld) [Entitic vol] 12.8 fL High 9.0-12.7 [facility] Comment on above: Order Comment: Speci men Type: BLOOD SPECIMENOrdering Facility: [facility] Address: [address] [place] [address] Performed By: #### 5 7021-8 ####[facility] LABCLIA [id number] [address] LABCLIA [id number] [place] [address] [place] Platelets (Bld) [#/Vol] 155 10*3/uL Normal 150-400 [facility] Comment on above: Order Comment: Speci men Type: BLOOD SPECIMENOrdering Facility: [facility] Address: [address] [place] [address] Result Comment: Resu lts checked and verified. No clot detected. Platelet count confirmed by manual review of peripheral blood smear Performed By: #### 5 7021-8 ####[facility] LABCLIA [id number] [address] LABCLIA [id number] [place] [address] [place] Polychromasia LM Ql (Bld) Slight Normal [facility] Comment on above: Order Comment: Speci men Type: BLOOD SPECIMENOrdering Facility: [facility] Address: [address] [place] [address] Performed By: #### 5 7021-8 ####[facility] LABCLIA [id number] [address] LABCLIA [id number] [place] [address] [place] RBC (Bld) [#/Vol] 2.09 10*6/uL Low 4.20-6.00 [facility] Comment on above: Order Comment: Speci men Type: BLOOD SPECIMENOrdering Facility: [facility] Address: [address] [place] [address] Performed By: #### 5 7021-8 ####[facility] LABCLIA [id number] [address] LABCLIA [id number] [place] [address] [place] RBC FRAGMENTS Few Abnormal None Seen [facility] Comment on above: Order Comment: Speci men Type: BLOOD SPECIMENOrdering Facility: [facility] Address: [address] [place] [address] Performed By: #### 5 7021-8 ####[facility] LABCLIA [id number] [address] LABCLIA [id number] [place] [address] [place] RED CELL MORPH Reviewed: see result s of individual morphologies Normal [facility] Comment on above: Order Comment: Speci men Type: BLOOD SPECIMENOrdering Facility: [facility] Address: [address] [place] [address] Performed By: #### 5 7021-8 ####[facility] LABCLIA [id number] [address] LABCLIA [id number] [address] [place] WAM - ABS BASO 0.08 k/uL Normal <0.11 [facility] Comment on above: Order Comment: Speci men Type: BLOOD SPECIMENOrdering Facility: [facility] Address: [address] [place] [address] Performed By: #### 5 7021-8 ####[facility] LABCLIA [id number] [address] LABCLIA [id number] [place] [address] [place] WAM - ABS MONO 0.29 k/uL Normal <0.87 [facility] Comment on above: Order Comment: Speci men Type: BLOOD SPECIMENOrdering Facility: [facility] Address: [address] [place] [address] Performed By: #### 5 7021-8 ####[facility] LABCLIA [id number] [address] LABCLIA [id number] [place] [address] [place] WAM - MONO% 15.0 % Normal [facility] Comment on above: Order Comment: Speci men Type: BLOOD SPECIMENOrdering Facility: [facility] Address: [address] [place] [address] Performed By: #### 5 7021-8 ####[facility] LABCLIA [id number] [address] LABCLIA [id number] [place] [address] [place] WAM ABSOLUTE NRBC <0.01 Normal <0.01 [facility] Comment on above: Order Comment: Speci men Type: BLOOD SPECIMENOrdering Facility: [facility] Address: [address] [place], [place] [address] Result Comment: This result was previously suppressed from the chart. Performed By: #### 5 7021-8 ####[facility] LABCLIA [id number] [place], [place] [id number] LABCLIA [id number] [place] [address] [place] WBC (Bld) [#/Vol] 1.96 10*3/uL Low 3.70-11.00 [facility] Comment on above: Order Comment: Speci men Type: BLOOD SPECIMENOrdering Facility: [facility] Address: [address] [place], [place] [address] Performed By: #### 5 7021-8 ####[facility] LABCLIA [id number] [place], [place] [address]Y[facility]ICK[facility] LABCLIA [id number] [place] [address] [place] CNOVSPon 01-14-2022 CNOVSP Normal [facility] CNPNon 01-14-2022 CNPN Normal [facility] Comprehensive metabolic 2000 panelon 01-14-2022 Albumin [Mass/Vol] 4.0 g/dL Normal 3.9-4.9 [facility] Comment on above: Order Comment: Speci men Type: BLOOD SPECIMENOrdering Facility: [facility] Address: [address] [place], [place] [address] Performed By: #### 2 532-0, 39138-5 ####[facility] LABCLIA [id number] [place] [address] ALP [Catalytic activity/Vol] 70 U/L Normal 38-113 [facility] Comment on above: Order Comment: Speci men Type: BLOOD SPECIMENOrdering Facility: [facility] Address: [address] [place], [place] [address] Performed By: #### 2 532-0, 49686-1 ####[facility] LABCLIA [id number] [place] [address] ALT [Catalytic activity/Vol] 14 U/L Normal 10-54 [facility] Comment on above: Order Comment: Speci men Type: BLOOD SPECIMENOrdering Facility: [facility] Address: [address] [place], [place] [address] Performed By: #### 2 532-0, ####[facility] LABCLIA [id number] [place] [address] Anion gap [Moles/Vol] 11 mmol/L Normal 9-18 [facility] Comment on above: Order Comment: Speci men Type: BLOOD SPECIMENOrdering Facility: [facility] Address: [address] [place] [address] Performed By: #### 2 532-0, ####[facility] LABCLIA [id number] [place] [address] AST [Catalytic activity/Vol] 10 U/L Low 14-40 [facility] Comment on above: Order Comment: Speci men Type: BLOOD SPECIMENOrdering Facility: [facility] Address: [address] [place] [address] Performed By: #### 2 532-0, ####[facility] LABCLIA [id number] [place] [address] Bilirubin [Mass/Vol] 0.5 mg/dL Normal 0.2-1.3 [facility] Comment on above: Order Comment: Speci men Type: BLOOD SPECIMENOrdering Facility: [facility] Address: [address] [place] [address] Performed By: #### 2 532-0, ####[facility] LABCLIA [id number] [place] [address] Calcium [Mass/Vol] 9.0 mg/dL Normal 8.5-10.2 [facility] Comment on above: Order Comment: Speci men Type: BLOOD SPECIMENOrdering Facility: [facility] Address: [address] [place] [address] Performed By: #### 2 532-0, 40704-1 ####[facility] LABCLIA [id number] [place] [address] Chloride [Moles/Vol] 104 mmol/L Normal 97-105 [facility] Comment on above: Order Comment: Speci men Type: BLOOD SPECIMENOrdering Facility: [facility] Address: [address] [place] [address] Performed By: #### 2 532-0, ####[facility] LABCLIA [id number] [place] [address] CO2 [Moles/Vol] 27 mmol/L Normal 22-30 [facility] Comment on above: Order Comment: Speci men Type: BLOOD SPECIMENOrdering Facility: [facility] Address: [address] [place] [address] Performed By: #### 2 532-0, ####[facility] LABCLIA [id number] [place] [address] Creatinine [Mass/Vol] 2.13 mg/dL High 0.73-1.22 [facility] Comment on above: Order Comment: Speci men Type: BLOOD SPECIMENOrdering Facility: [facility] Address: [address] [place] [address] Performed By: #### 2 532-0, 29335-8 ####[facility] LABIA [id number] [place] [address] ESTIMATED GLOMERULAR FILTRATION RATE 30 mL/min/1.73m??? Low >=60 [facility] Comment on above: Order Comment: Speci men Type: BLOOD SPECIMENOrdering Facility: [facility] Address: [address] [place] [address] Result Comment: Faye mated Glomerular Filtration Rate (eGFR) is calculated using the 2020 CKD-EPI creatinine equation. This equation utilizes serum creatinine, sex, and age as parameters. The creatinine assay has traceable calibration to isotope dilution-mass spectrometry. Refer to KDIGO guidelines for clinical interpretation. In patients with unstable renal function, e.g. those with acute kidney injury, the eGFR may not accurately reflect actual GFR. Performed By: #### 2 532-0, 77027-6 ####[facility] LABCLIA [id number] [place] [address] Glucose [Mass/Vol] 216 mg/dL High 74-99 [facility] Comment on above: Order Comment: Speci men Type: BLOOD SPECIMENOrdering Facility: [facility] Address: [address] [place] [address] Result Comment: The [place] [employer] (ADA) provides guidance for cutoff values for fasting glucose and random glucose. The ADA defines fasting as no caloric intake for at least 8 hours. Fasting plasma glucose results between 100 to 125 mg/dL indicate increased risk for diabetes (prediabetes).Fasting plasma glucose results greater than or equal to 126 mg/dL meet the criteria for diagnosis of diabetes. In the absence of unequivocal hyperglycemia, results should be confirmed by repeat testing. In a patient with classic symptoms of hyperglycemia or hyperglycemic crisis, random plasma glucose results greater than or equal to 200 mg/dL meet the criteria for diagnosis of diabetes.Reference: Standards of Medical Care in Diabetes 2016, [place] [employer]. Diabetes Care. 2016.39(Suppl 1). Performed By: #### 2 532-0, 48903-3 ####[facility] LABCLIA [id number] [place] [address] Potassium [Moles/Vol] 4.4 mmol/L Normal 3.7-5.1 [facility] Comment on above: Order Comment: Speci men Type: BLOOD SPECIMENOrdering Facility: [facility] Address: [address] [place] [address] Performed By: #### 2 532-0, 46501-6 ####[facility] LABCLIA [id number] [place] [address] Protein [Mass/Vol] 6.1 g/dL Low 6.3-8.0 [facility] Comment on above: Order Comment: Speci men Type: BLOOD SPECIMENOrdering Facility: [facility] Address: [address] [place] [address] Performed By: #### 2 532-0, 27037-8 ####[facility] LABCLIA [id number] [place] [address] Sodium [Moles/Vol] 142 mmol/L Normal 136-144 [facility] Comment on above: Order Comment: Speci men Type: BLOOD SPECIMENOrdering Facility: [facility] Address: [address] [place] [address] Performed By: #### 2 532-0, 64366-9 ####[facility] LABCLIA [id number] [place] [address] Urea nitrogen [Mass/Vol] 26 mg/dL High 9-24 [facility] Comment on above: Order Comment: Speci men Type: BLOOD SPECIMENOrdering Facility: [facility] Address: [address] [place] [address] Performed By: #### 2 532-0, 72743-0 ####[facility] LABIA [id number] [place] [address] LDH SerPl-cCncon 01-14-2022 LDH [Catalytic activity/Vol] 214 U/L Normal 135-225 [facility] Comment on above: Order Comment: Speci men Type: BLOOD SPECIMENOrdering Facility: [facility] Address: [address] [place] [address] Performed By: #### 2 532-0, 55260-3 ####[facility] LABCLIA [id number] [place] [address] CBC W Auto Differential pane l (Bld)on 01-07-2022 Basophils (Bld) [#/Vol] 10*3/uL Normal <0.11 [facility] Comment on above: Order Comment: Speci men Type: BLOOD SPECIMENOrdering Facility: [facility] Address: [address] [place] [address] Performed By: #### 5 7021-8 ####[facility] LABCLIA [id number] [place] [address] Basophils/100 WBC (Bld) 0.9 % Normal [facility] Comment on above: Order Comment: Speci men Type: BLOOD SPECIMENOrdering Facility: [facility] Address: [address] [place] [address] Performed By: #### 5 7021-8 ####[facility] LABCLIA [id number] [place] [address] Differential cell count method Nom (Bld) Auto Normal [facility] Comment on above: Order Comment: Speci men Type: BLOOD SPECIMENOrdering Facility: [facility] Address: [address] [place] [address] Performed By: #### 5 7021-8 ####[facility] LABCLIA [id number] [place] [address] Eosinophils (Bld) [#/Vol] 10*3/uL Normal <0.46 [facility] Comment on above: Order Comment: Speci men Type: BLOOD SPECIMENOrdering Facility: [facility] Address: [address] [place] [address] Performed By: #### 5 7021-8 ####[facility] LABCLIA [id number] [place] [address] Eosinophils/100 WBC (Bld) 0.0 % Normal [facility] Comment on above: Order Comment: Speci men Type: BLOOD SPECIMENOrdering Facility: [facility] Address: [address] [place] [address] Performed By: #### 5 7021-8 ####[facility] LABCLIA [id number] [place] [address] Erythrocyte distribution width (RBC) [Ratio] 21.7 % High 11.5-15.0 [facility] Comment on above: Order Comment: Speci men Type: BLOOD SPECIMENOrdering Facility: [facility] Address: [address] [place] [address] Performed By: #### 5 7021-8 ####[facility] LABCLIA [id number] [place] [address] Hematocrit (Bld) [Volume fraction] 24.4 % Low 39.0-51.0 [facility] Comment on above: Order Comment: Speci men Type: BLOOD SPECIMENOrdering Facility: [facility] Address: [address] [place] [address] Performed By: #### 5 7021-8 ####[facility] LABIA [id number] [place] [address] Hemoglobin (Bld) [Mass/Vol] 7.7 g/dL Low 13.0-17.0 [facility] Comment on above: Order Comment: Speci men Type: BLOOD SPECIMENOrdering Facility: [facility] Address: [address] [place] [address] Performed By: #### 5 7021-8 ####[facility] LABIA [id number] [place] [address] IMMATURE GRAN % 0.9 % Normal [facility] Comment on above: Order Comment: Speci men Type: BLOOD SPECIMENOrdering Facility: [facility] Address: [address] [place] [address] Performed By: #### 5 7021-8 ####[facility] LABIA [id number] [place] [address] IMMATURE GRAN ABS <0.03 Normal <0.10 [facility] Comment on above: Order Comment: Speci men Type: BLOOD SPECIMENOrdering Facility: [facility] Address: [address] [place] [address] Performed By: #### 5 7021-8 ####[facility] LABIA [id number] [place] [address] Lymphocytes (Bld) [#/Vol] 0.78 10*3/uL Low 1.00-4.00 [facility] Comment on above: Order Comment: Speci men Type: BLOOD SPECIMENOrdering Facility: [facility] Address: [address] [place] [address] Performed By: #### 5 7021-8 ####[facility] LABCLIA [id number] [place] [address] Lymphocytes/100 WBC (Bld) 36.6 % Normal [facility] Comment on above: Order Comment: Speci men Type: BLOOD SPECIMENOrdering Facility: [facility] Address: [address] [place] [address] Performed By: #### 5 7021-8 ####[facility] LABCLIA [id number] [place] [address] MCH (RBC) [Entitic mass] 34.5 pg High 26.0-34.0 [facility] Comment on above: Order Comment: Speci men Type: BLOOD SPECIMENOrdering Facility: [facility] Address: [address] [place] [address] Performed By: #### 5 7021-8 ####[facility] LABCLIA [id number] [place] [address] MCHC (RBC) [Mass/Vol] 31.6 g/dL Normal 30.5-36.0 [facility] Comment on above: Order Comment: Speci men Type: BLOOD SPECIMENOrdering Facility: [facility] Address: [address] [place] [address] Performed By: #### 5 7021-8 ####[facility] LABCLIA [id number] [place] [address] MCV (RBC) [Entitic vol] 109.4 fL High 80.0-100.0 [facility] Comment on above: Order Comment: Speci men Type: BLOOD SPECIMENOrdering Facility: [facility] Address: [address] [place] [address] Performed By: #### 5 7021-8 ####[facility] LABCLIA [id number] [place] [address] Monocytes (Bld) [#/Vol] 0.44 10*3/uL Normal <0.87 [facility] Comment on above: Order Comment: Speci men Type: BLOOD SPECIMENOrdering Facility: [facility] Address: [address] [place] [address] Performed By: #### 5 7021-8 ####[facility] LABCLIA [id number] [place] [address] Monocytes/100 WBC (Bld) 20.7 % Normal [facility] Comment on above: Order Comment: Speci men Type: BLOOD SPECIMENOrdering Facility: [facility] Address: [address] [place] [address] Performed By: #### 5 7021-8 ####[facility] LABCLIA [id number] [place] [address] Neutrophils (Bld) [#/Vol] 0.87 10*3/uL Low 1.45-7.50 [facility] Comment on above: Order Comment: Speci men Type: BLOOD SPECIMENOrdering Facility: [facility] Address: [address] [place] [address] Performed By: #### 5 7021-8 ####[facility] LABCLIA [id number] [place] [address] Neutrophils/100 WBC (Bld) 40.9 % Normal [facility] Comment on above: Order Comment: Speci men Type: BLOOD SPECIMENOrdering Facility: [facility] Address: [address] [place] [address] Performed By: #### 5 7021-8 ####[facility] LABCLIA [id number] [place] [address] Nucleated RBC (Bld) [#/Vol] 10*3/uL Normal <0.01 [facility] Comment on above: Order Comment: Speci men Type: BLOOD SPECIMENOrdering Facility: [facility] Address: [address] [place], [place] [address] Performed By: #### 5 7021-8 ####[facility] LABCLIA [id number] [place] [address] Nucleated RBC/100 WBC (Bld) [Ratio] 0.0 /100 WBC Normal [facility] Comment on above: Order Comment: Speci men Type: BLOOD SPECIMENOrdering Facility: [facility] Address: [address] [place] [address] Performed By: #### 5 7021-8 ####[facility] LABCLIA [id number] [place] [address] Platelet mean volume (Bld) [Entitic vol] 12.3 fL Normal 9.0-12.7 [facility] Comment on above: Order Comment: Speci men Type: BLOOD SPECIMENOrdering Facility: [facility] Address: [address] [place] [address] Performed By: #### 5 7021-8 ####[facility] LABCLIA [id number] [place] [address] Platelets (Bld) [#/Vol] 80 10*3/uL Low 150-400 [facility] Comment on above: Order Comment: Speci men Type: BLOOD SPECIMENOrdering Facility: [facility] Address: [address] [place], [place] [address] Result Comment: Samp le checked for clot Performed By: #### 5 7021-8 ####[facility] LABCLIA [id number] [place] [address] RBC (Bld) [#/Vol] 2.23 10*6/uL Low 4.20-6.00 [facility] Comment on above: Order Comment: Speci men Type: BLOOD SPECIMENOrdering Facility: [facility] Address: [address] [place], [place] [address] Performed By: #### 5 7021-8 ####[facility] LABCLIA [id number] [place] [address] WBC (Bld) [#/Vol] 2.13 10*3/uL Low 3.70-11.00 [facility] Comment on above: Order Comment: Speci men Type: BLOOD SPECIMENOrdering Facility: [facility] Address: [address] [place] [address] Performed By: #### 5 7021-8 ####[facility] LABCLIA [id number] [place] [address] CNNURSEon 01-07-2022 CNNURSE Normal [facility] metabolic 2000 panelon 01-07-2022 Albumin [Mass/Vol] 3.8 g/dL Low 3.9-4.9 [facility] Comment on above: Order Comment: Speci men Type: BLOOD SPECIMENOrdering Facility: [facility] Address: [address] [place], [place] [address] Performed By: #### 2 4323-8, 2532-0 ####[facility] LABCLIA [id number] [place] [address] ALP [Catalytic activity/Vol] 76 U/L Normal 38-113 [facility] Comment on above: Order Comment: Speci men Type: BLOOD SPECIMENOrdering Facility: [facility] Address: [address] [place], [place] [address] Performed By: #### 2 4323-8, 2532-0 ####[facility] LABCLIA [id number] [place] [address] ALT [Catalytic activity/Vol] 16 U/L Normal 10-54 [facility] Comment on above: Order Comment: Speci men Type: BLOOD SPECIMENOrdering Facility: [facility] Address: [address] [place] [address] Performed By: #### 2 4323-, 2532-0 ####[facility] LABCLIA [id number] [place] [address] Anion gap [Moles/Vol] 7 mmol/L Low 9-18 [facility] Comment on above: Order Comment: Speci men Type: BLOOD SPECIMENOrdering Facility: [facility] Address: [address] [place] [address] Performed By: #### 2 4328, 2531-0 ####[facility] LABCLIA [id number] [place] [address] AST [Catalytic activity/Vol] 10 U/L Low 14-40 [facility] Comment on above: Order Comment: Speci men Type: BLOOD SPECIMENOrdering Facility: [facility] Address: [address] [place] [address] Performed By: #### 2 4328, 2531-0 ####[facility] LABCLIA [id number] [place] [address] Bilirubin [Mass/Vol] 0.6 mg/dL Normal 0.2-1.3 [facility] Comment on above: Order Comment: Speci men Type: BLOOD SPECIMENOrdering Facility: [facility] Address: [address] [place] [address] Performed By: #### 2 4328, 2531-0 ####[facility] LABCLIA [id number] [place] [address] Calcium [Mass/Vol] 8.8 mg/dL Normal 8.5-10.2 [facility] Comment on above: Order Comment: Speci men Type: BLOOD SPECIMENOrdering Facility: [facility] Address: [address] [place] [address] Performed By: #### 2 4328, 2531-0 ####[facility] LABCLIA [id number] [place] [address] Chloride [Moles/Vol] 104 mmol/L Normal 97-105 [facility] Comment on above: Order Comment: Speci men Type: BLOOD SPECIMENOrdering Facility: [facility] Address: [address] [place], [place] [phone] Performed By: #### 2 4323-8, 0 ####[facility] LABCLIA [id number] [place] [address] CO2 [Moles/Vol] 28 mmol/L Normal 22-30 [facility] Comment on above: Order Comment: Speci men Type: BLOOD SPECIMENOrdering Facility: [facility] Address: [address] [place] [address] Performed By: #### 2 4328, ####[facility] LABCLIA [id number] [place] [address] Creatinine [Mass/Vol] 1.68 mg/dL High 0.73-1.22 [facility] Comment on above: Order Comment: Speci men Type: BLOOD SPECIMENOrdering Facility: [facility] Address: [address] [place] [address] Performed By: #### 2 43238, ####[facility] LABCLIA [id number] [place] [address] ESTIMATED GLOMERULAR FILTRATION RATE 40 mL/min/1.73m??? Low >=60 [facility] Comment on above: Order Comment: Speci men Type: BLOOD SPECIMENOrdering Facility: [facility] Address: [address] [place] [address] Result Comment: Faye mated Glomerular Filtration Rate (eGFR) is calculated using the 2020 CKD-EPI creatinine equation. This equation utilizes serum creatinine, sex, and age as parameters. The creatinine assay has traceable calibration to isotope dilution-mass spectrometry. Refer to KDIGO guidelines for clinical interpretation. In patients with unstable renal function, e.g. those with acute kidney injury, the eGFR may not accurately reflect actual GFR. Performed By: #### 2 4323-8, 0 ####[facility] LABCLIA [id number] [place] [address] Glucose [Mass/Vol] 180 mg/dL High 74-99 [facility] Comment on above: Order Comment: Speci men Type: BLOOD SPECIMENOrdering Facility: [facility] Address: [address] [place], [place] [id number] Result Comment: The [place] [employer] (ADA) provides guidance for cutoff values for fasting glucose and random glucose. The ADA defines fasting as no caloric intake for at least 8 hours. Fasting plasma glucose results between 100 to 125 mg/dL indicate increased risk for diabetes (prediabetes).Fasting plasma glucose results greater than or equal to 126 mg/dL meet the criteria for diagnosis of diabetes. In the absence of unequivocal hyperglycemia, results should be confirmed by repeat testing. In a patient with classic symptoms of hyperglycemia or hyperglycemic crisis, random plasma glucose results greater than or equal to 200 mg/dL meet the criteria for diagnosis of diabetes.Reference: Standards of Medical Care in Diabetes 2016, [place] [employer]. Diabetes Care. 2016.39(Suppl 1). Performed By: #### 2 4323-8, 0 ####[facility] LABCLIA [id number] [place] [address] Potassium [Moles/Vol] 4.4 mmol/L Normal 3.7-5.1 [facility] Comment on above: Order Comment: Speci men Type: BLOOD SPECIMENOrdering Facility: [facility] Address: [address] [place], [place] [id number] Performed By: #### 2 4323-8, 0 ####[facility] LABIA [id number] [place] [address] Protein [Mass/Vol] 6.0 g/dL Low 6.3-8.0 [facility] Comment on above: Order Comment: Speci men Type: BLOOD SPECIMENOrdering Facility: [facility] Address: [address] [place], [place] [id number] Performed By: #### 2 4323-8, 0 ####[facility] LABCLIA [id number] [place] [address] Sodium [Moles/Vol] 139 mmol/L Normal 136-144 [facility] Comment on above: Order Comment: Speci men Type: BLOOD SPECIMENOrdering Facility: [facility] Address: [address] [place] [id number] Performed By: #### 2 4323-8, 2532-0 ####[facility] LABCLIA [id number] [place] [address] Urea nitrogen [Mass/Vol] 11 mg/dL Normal 9-24 [facility] Comment on above: Order Comment: Speci men Type: BLOOD SPECIMENOrdering Facility: [facility] Address: [address] [place] [address] Performed By: #### 2 4323-8, 2532-0 ####[facility] LABIA [id number] [place] [address] LDH SerPl-cCncon 01-07-2022 LDH [Catalytic activity/Vol] 211 U/L Normal 135-225 [facility] Comment on above: Order Comment: Speci men Type: BLOOD SPECIMENOrdering Facility: [facility] Address: [address] [place] [address] Performed By: #### 2 4323-8, 2532-0 ####[facility] LABCLIA [id number] [place] [address] Cardiovascular Lab Reporton 11-29-2021 Cardiovascular Lab Report [facility] Patient Name: [facility] Sandip Swain MR #: [id number] Department of Physician: Valentín Lee MD Division of Service Date: 11/21/2021 Cardiology Birthdate: 1940 Adult Cardiovascular Room #: 4AB [id number] Services [facility] [address] [facility]. [place] [address] Cardiovascular Laboratory Report PROCEDURES PERFORMED: Right heart catheterization. FINDINGS: Moderate pulmonary hypertension. RECOMMENDATIONS: 1. Diuresis per primary team. 2. Further recommendations as per Inpatient Cardiology consult Service. PROCEDURE IN DETAIL: After risks, benefits, alternatives were explained, informed consent was obtained. The patient was prepped and draped in usual sterile fashion. Using 1% lidocaine solution, local infiltration of anesthesia was achieved over the right internal jugular vein. Using a micropuncture kit with ultrasound guidance and using a modified Seldinger technique, access to the right internal jugular vein was obtained. Christie catheter was advanced sequentially into the RA, RV, PA, and wedge positions, and pressures were measured. After reviewing the pressures, decided to conclude the procedure. The patient tolerated the procedure well. There were no overt complications. He was to be transferred to recovery in stable condition. FINDINGS: Hemodynamics: 1. RA 10. 2. RV 56/5 3. PA 56/20 (36). 4. PCWP 20. 5. CO 5.47. 6. CI 2.50. INDICATIONS: Heart failure. Electronically Signed by: Valentín Lee MD 12/20/2021 08:10 P Valentín Lee MD Date Dict: 11/29/2021/04:41 P/Valentín Lee MD Date Trans: 11/29/2021 08:03 P/simon [id number] cc: Flash Pearl M.D. [address] [place] [id number] Normal [facility] POC GLUCOSE LABon 11-25-2021 Glucose [Mass/Vol] 210 mg/dL High 70-100 [facility] Comment on above: Performed By: #### 8 5499 #### [facility] [address] [facility] [place] [address], [place] Glucose [Mass/Vol] 203 mg/dL High 70-100 [facility] Comment on above: Performed By: #### 8 5499 #### [facility] [address] [place] [address], [place] Glucose [Mass/Vol] 202 mg/dL High 70-100 [facility] Comment on above: Performed By: #### 8 5499 #### [facility] [place] [address] [facility]. [address] BNP (B-TYPE NATRIURETIC PEPT IZAIAH)on 11-24-2021 Natriuretic peptide B (Bld) [Mass/Vol] 685 pg/mL High 0-100 [facility] Comment on above: Order Comment: No: D o not add to previous draw Result Comment: Give n the appropriate clinical setting a BNP result of >100 pg/mL indicates congestive heart failure. Performed By: #### 8 5123 ####[facility] [place] [address], [facility] CBC W/DIFFon 11-24-2021 ABS NEUTROPHILS 2.5 10*3/uL Normal 1.6-7.6 [facility] Comment on above: Order Comment: RIGHT BICEP Performed By: #### 3 0313 #### [facility] [place] [address] [facility] [place] [address], [facility] ANISO Moderate Normal [facility] Comment on above: Order Comment: RIGHT BICEP Performed By: #### 3 0313 #### [facility] [address] [facility] [place] [address], [facility] Basophils (Bld) [#/Vol] 0.0 10*3/uL Normal 0.0-0.2 [facility] Comment on above: Order Comment: RIGHT BICEP Performed By: #### 3 0313 #### [facility] [address] [facility] [place] [address], [facility] Basophils/100 WBC (Bld) 0.9 % Normal 0.0-1.0 [facility] Comment on above: Order Comment: RIGHT BICEP Performed By: #### 3 0313 #### [facility] [place] [address] [place] [address], [facility] Eosinophils (Bld) [#/Vol] 0.0 10*3/uL Normal 0.0-0.5 [facility] Comment on above: Order Comment: RIGHT BICEP Performed By: #### 3 0313 #### [facility] [place] [address] [place] [id number], [facility] Eosinophils/100 WBC (Bld) 0.0 % Normal 0.0-6.0 [facility] Comment on above: Order Comment: RIGHT BICEP Performed By: #### 3 0313 #### [facility] [place] [address] [place] [address], [facility] Erythrocyte distribution width (RBC) [Ratio] 22.0 % High 11.5-15.0 [facility] Comment on above: Order Comment: RIGHT BICEP Performed By: #### 3 0313 #### [facility] [place] [address] [place] [address], [facility] GIANT PLATELETS Present Normal [facility] Comment on above: Order Comment: RIGHT BICEP Performed By: #### 3 0313 #### [facility] [place] [address] [place] [address], [facility] Hematocrit (Bld) [Volume fraction] 27.9 % Low 39.0-50.0 [facility] Comment on above: Order Comment: RIGHT BICEP Performed By: #### 3 0313 #### [facility] [place] [address] [place] [address], [facility] Hemoglobin (Bld) [Mass/Vol] 8.8 g/dL Low 13.0-17.0 [facility] Comment on above: Order Comment: RIGHT BICEP Performed By: #### 3 0313 #### [facility] [place] [address] [place] [address], [place] IMM PLATELET FRAC 14.2 % High 0.8-6.3 [facility] Comment on above: Order Comment: RIGHT BICEP Performed By: #### 3 3 #### [facility] [place] [address] [place] [address], [facility] Lymphocytes (Bld) [#/Vol] 0.5 10*3/uL Low 1.2-4.0 [facility] Comment on above: Order Comment: RIGHT BICEP Performed By: #### 3 0313 #### [facility] [address] [place] [address], [facility] Lymphocytes/100 WBC (Bld) 14.2 % Low 20.0-45.0 [facility] Comment on above: Order Comment: RIGHT BICEP Performed By: #### 3 3 #### [facility] [place] [address] [facility] [place] [address], [facility] MACRO Slight Normal [facility] Comment on above: Order Comment: RIGHT BICEP Performed By: #### 3 3 #### [facility] [address] [facility] [place] [address], [facility] MCH (RBC) [Entitic mass] 34.6 pg High 27.0-33.0 [facility] Comment on above: Order Comment: RIGHT BICEP Performed By: #### 3 3 #### [facility] [place] [address] [facility] [place] [address], [facility] MCHC (RBC) [Mass/Vol] 31.5 g/dL Low 32.0-35.0 [facility] Comment on above: Order Comment: RIGHT BICEP Performed By: #### 3 3 #### [facility] [address] [facility] [place] [address], [facility] MCV (RBC) [Entitic vol] 109.8 fL High 82.0-98.0 [facility] Comment on above: Order Comment: RIGHT BICEP Performed By: #### 3 3 #### [facility] [address] [facility] [place] [address], [facility] Monocytes (Bld) [#/Vol] 0.4 10*3/uL Normal 0.1-1.0 [facility] Comment on above: Order Comment: RIGHT BICEP Performed By: #### 3 3 #### [facility] [place] [address] [place] [id number], [facility] MONOS 11.3 % Normal 5.0-12.0 [facility] Comment on above: Order Comment: RIGHT BICEP Performed By: #### 3 3 #### [facility] [address] [place] [address], [facility] MYELOS 6.6 % High 0.0-0.0 [facility] Comment on above: Order Comment: RIGHT BICEP Performed By: #### 3 3 #### [facility] [place] [address] [place] [id number], [facility] Neutrophils/100 WBC (Bld) 67.0 % Normal 40.0-72.0 [facility] Comment on above: Order Comment: RIGHT BICEP Performed By: #### 3 3 #### [facility] [address] [place] [id number], [facility] Nucleated RBC/100 WBC (Bld) [Ratio] 1 % High 0-0 [facility] Comment on above: Order Comment: RIGHT BICEP Performed By: #### 3 3 #### [facility] [address] [place] [address], [facility] PLAT CNT 186 10*3/uL Normal 150-400 [facility] Comment on above: Order Comment: RIGHT BICEP Performed By: #### 3 3 #### [facility] [address] [place] [address], [facility] POIK Slight Normal [facility] Comment on above: Order Comment: RIGHT BICEP Performed By: #### 3 3 #### [facility] [address] [place] [id number], [facility] RBC (Bld) [#/Vol] 2.54 10*6/uL Low 4.20-5.70 [facility] Comment on above: Order Comment: RIGHT BICEP Performed By: #### 3 3 #### [facility] [address] [place] [address], [facility] WBC (Bld) [#/Vol] 3.77 10*3/uL Low 4.00-10.60 [facility] Comment on above: Order Comment: RIGHT BICEP Performed By: #### 3 0313 #### [facility] [address] [place] [address], [facility] COMP METABOLIC PANELon 11-24 Albumin [Mass/Vol] 3.6 g/dL Normal 3.5-5.7 [facility] Comment on above: Order Comment: Evalu ate for Cardiomegaly Performed By: #### 0 0121, 92352, 31988 ####[facility] [place] [address], [facility] ALKALINE PHOSPH 44 IU/L Normal 34-104 [facility] Comment on above: Order Comment: Evalu ate for Cardiomegaly Performed By: #### 0 0121, 73454, 59698 ####[facility] [place] [address], [facility] ALT [Catalytic activity/Vol] 36 U/L Normal 7-52 [facility] Comment on above: Order Comment: Evalu ate for Cardiomegaly Performed By: #### 0 0121, 06011, 98797 ####[facility] [place] [address], [facility] AST [Catalytic activity/Vol] 23 U/L Normal 13-39 [facility] Comment on above: Order Comment: Evalu ate for Cardiomegaly Performed By: #### 0 0121, 93379, 34085 ####[facility] [place] [address], [facility] Bilirubin [Mass/Vol] 0.8 mg/dL Normal 0.3-1.0 [facility] Comment on above: Order Comment: Evalu ate for Cardiomegaly Performed By: #### 0 0121, 58326, 88908 ####[facility] [place] [address], [facility] Calcium [Mass/Vol] 8.8 mg/dL Normal 8.6-10.3 [facility] Comment on above: Order Comment: Evalu ate for Cardiomegaly Performed By: #### 0 0121, 97937, 76070 ####[facility] [place] [address], [place] Chloride [Moles/Vol] 103 mmol/L Normal 98-107 [facility] Comment on above: Order Comment: Evalu ate for Cardiomegaly Performed By: #### 0 0121, 76353, 71995 ####[facility] [place] [address], [place] CO2 [Moles/Vol] 30 mmol/L Normal 21-31 [facility] Comment on above: Order Comment: Evalu ate for Cardiomegaly Performed By: #### 0 0121, 63282, 44543 ####[facility] [place] [address], [facility] Creatinine [Mass/Vol] 1.54 mg/dL High 0.70-1.30 [facility] Comment on above: Order Comment: Evalu ate for Cardiomegaly Performed By: #### 0 0121, 01274, 64010 ####[facility] [place] [address], [facility] eGFR- 53 ml/min/1.73sq m Abnormal >60 [facility] Comment on above: Order Comment: Evalu ate for Cardiomegaly Result Comment: Calc ulation may not be valid for patients over 70 years Performed By: #### 0 0121, 37631, 95480 ####[facility] [place] [address], [facility] eGFR- non- 43 ml/min/1.73sq m Abnormal >60 [facility] Comment on above: Order Comment: Evalu ate for Cardiomegaly Result Comment: Calc ulation may not be valid for patients over 70 years Performed By: #### 0 0121, 33008, 74545 ####[facility] [place] [address], [place] Glucose [Mass/Vol] 173 mg/dL High 70-100 [facility] Comment on above: Order Comment: Evalu ate for Cardiomegaly Performed By: #### 0 0121, 27377, 31434 ####[facility] [place] [address], [place] Potassium [Moles/Vol] 3.5 mmol/L Normal 3.5-5.1 [facility] Comment on above: Order Comment: Evalu ate for Cardiomegaly Performed By: #### 0 0121, 19074, 15344 ####[facility] [place] [address], [place] Protein [Mass/Vol] 6.2 g/dL Normal 6.0-8.3 [facility] Comment on above: Order Comment: Evalu ate for Cardiomegaly Performed By: #### 0 0121, 76345, 21559 ####[facility] [place] [address], [place] Sodium [Moles/Vol] 143 mmol/L Normal 136-145 [facility] Comment on above: Order Comment: Evalu ate for Cardiomegaly Performed By: #### 0 0121, 61677, 32401 ####[facility] [place] [address], [place] Urea nitrogen [Mass/Vol] 41 mg/dL High 7-25 [facility] Comment on above: Order Comment: Evalu ate for Cardiomegaly Performed By: #### 0 0121, 15679, 91556 ####[facility] [place] [address], [place] LIPID PROFILEon 11-24-2021 Cholesterol [Mass/Vol] 69 mg/dL Low 120-200 [facility] Comment on above: Result Comment: CHOL ESTEROL REFERENCE RANGE: 20 YEARS AND OLDER CARDIOVASCULAR RISK Less than 200 mg/dl Low Risk 200 to 239 mg/dl Borderline Risk 240 mg/dl and greater High Risk Performed By: #### 0 0121, 69561, 26317 ####[facility] [place] [address], [place] Cholesterol in HDL [Mass/Vol] 21 mg/dL Low 23-92 [facility] Comment on above: Result Comment: Slig ht variation in normal range could be due to gender and/or age. HDL CHOLESTEROL REFERENCE RANGE: 20 years and older Cardiovascular Risk > or =60 mg/dL Desirable 40 TO 59 mg/dL Low Risk <40 mg/dL High Risk Performed By: #### 0 0121, 48455, 70617 ####[facility] [facility] [place] [address], [facility] Cholesterol in LDL [Mass/Vol] 21 mg/dL Normal 0-130 [facility] Comment on above: Result Comment: LDL IS A CALCULATION LDL IS ONLY VALID IF THE TRIG IS LESS THAN 400. Performed By: #### 0 0121, 57858, 47047 ####[facility] [facility] [place] [address], [facility] Cholesterol.total/C holesterol in HDL [Mass ratio] 3.3 {ratio} Normal .0-4.5 [facility] Comment on above: Performed By: #### 0 0121, 32502, 83981 ####[facility] [place] [address], [place] NON-HDL CHOLESTEROL 48 mg/dL Normal [facility] Comment on above: Performed By: #### 0 0121, 30959, 74920 ####[facility] [place] [address], [place] Triglyceride [Mass/Vol] 134 mg/dL Normal 40-149 [facility] Comment on above: Result Comment: TRIG LYCERIDE REFERENCE RANGE: 20 YEARS AND OLDER CARDIOVASCULAR RISK LESS THAN 150 mg/dl LOW RISK 150 TO 199 mg/dl BORDERLINE RISK 200 mg/dl AND GREATER HIGH RISK Performed By: #### 0 0121, 70450, 05201 ####[facility] [place] [address], [place] VLDL CHOL 27 mg/dL Normal 0-40 [facility] Comment on above: Performed By: #### 0 0121, 67481, 22522 ####[facility] [place] [address], [place] MAGNESIUM BLOODon 11-24-2021 Magnesium [Mass/Vol] 2.2 mg/dL Normal 1.9-2.7 [facility] Comment on above: Order Comment: Evalu ate for Cardiomegaly Performed By: #### 0 0121, 28507, 17993 ####[facility] [place] [address], [place] POC GLUCOSE LABon 11-24-2021 Glucose [Mass/Vol] 194 mg/dL High 70-100 [facility] Comment on above: Performed By: #### 3 0313 #### [facility] [address] [place] [address], [place] Glucose [Mass/Vol] 222 mg/dL High 70-100 [facility] Comment on above: Performed By: #### 3 2043 #### [facility] [address] [place] [address], [place] Glucose [Mass/Vol] 193 mg/dL High 70-100 [facility] Comment on above: Performed By: #### 8 5499 #### [facility] [address] [place] [address], [place] Glucose [Mass/Vol] 196 mg/dL High 70-100 [facility] Comment on above: Performed By: #### 3 2043 #### [facility] [address] [place] [address], [facility] COMP METABOLIC PANELon 11-23 Albumin [Mass/Vol] 3.3 g/dL Low 3.5-5.7 [facility] Comment on above: Order Comment: No: D o not add to previous draw Performed By: #### 3 0477 #### [facility] [address] [place] [address], [place] ALKALINE PHOSPH 40 IU/L Normal 34-104 [facility] Comment on above: Order Comment: No: D o not add to previous draw Performed By: #### 3 0477 #### [facility] [place] [address] [place] [address], [place] ALT [Catalytic activity/Vol] 34 U/L Normal 7-52 [facility] Comment on above: Order Comment: No: D o not add to previous draw Performed By: #### 3 0477 #### [facility] [facility] [place] [address] [place] [address], [place] AST [Catalytic activity/Vol] 21 U/L Normal 13-39 [facility] Comment on above: Order Comment: No: D o not add to previous draw Performed By: #### 3 0477 #### [facility] [place] [address] [place] [address], [place] Bilirubin [Mass/Vol] 0.8 mg/dL Normal 0.3-1.0 [facility] Comment on above: Order Comment: No: D o not add to previous draw Performed By: #### 3 0477 #### [facility] [place] [address] [place] [address], [place] Calcium [Mass/Vol] 8.6 mg/dL Normal 8.6-10.3 [facility] Comment on above: Order Comment: No: D o not add to previous draw Performed By: #### 3 0477 #### [facility] [place] [address] [place] [address], [place] Chloride [Moles/Vol] 103 mmol/L Normal 98-107 [facility] Comment on above: Order Comment: No: D o not add to previous draw Performed By: #### 3 0477 #### [facility] [place] [address] [place] [address], [place] CO2 [Moles/Vol] 30 mmol/L Normal 21-31 [facility] Comment on above: Order Comment: No: D o not add to previous draw Performed By: #### 3 0477 #### [facility] [place] [address] [place] [address], [place] Creatinine [Mass/Vol] 1.88 mg/dL High 0.70-1.30 [facility] Comment on above: Order Comment: No: D o not add to previous draw Performed By: #### 3 0477 #### [facility] [place] [address] [place] [address], [facility] eGFR- 42 ml/min/1.73sq m Abnormal >60 [facility] Comment on above: Order Comment: No: D o not add to previous draw Result Comment: Calc ulation may not be valid for patients over 70 years Performed By: #### 3 0477 #### [facility] [place] [address] [place] [address], [facility] eGFR- non- 35 ml/min/1.73sq m Abnormal >60 [facility] Comment on above: Order Comment: No: D o not add to previous draw Result Comment: Calc ulation may not be valid for patients over 70 years Performed By: #### 3 0477 #### [facility] [place] [address] [place] [address], [place] Glucose [Mass/Vol] 140 mg/dL High 70-100 [facility] Comment on above: Order Comment: No: D o not add to previous draw Performed By: #### 3 0477 #### [facility] [place] [address] [place] [address], [place] Potassium [Moles/Vol] 3.5 mmol/L Normal 3.5-5.1 [facility] Comment on above: Order Comment: No: D o not add to previous draw Performed By: #### 3 0477 #### [facility] [place] [address] [place] [address], [facility] Protein [Mass/Vol] 5.9 g/dL Low 6.0-8.3 [facility] Comment on above: Order Comment: No: D o not add to previous draw Performed By: #### 3 0477 #### [facility] [place] [address] [place] [address], [place] Sodium [Moles/Vol] 143 mmol/L Normal 136-145 [facility] Comment on above: Order Comment: No: D o not add to previous draw Performed By: #### 3 0477 #### [facility] [place] [address] [place] [address], [facility] Urea nitrogen [Mass/Vol] 47 mg/dL High 7-25 [facility] Comment on above: Order Comment: No: D o not add to previous draw Performed By: #### 3 0477 #### [facility] [place] [address] [place] [address], [facility] HEMOGLOBINon 11-23-2021 Hemoglobin (Bld) [Mass/Vol] 8.7 g/dL Low 13.0-17.0 [facility] Comment on above: Order Comment: pleas e start lab draw at 5pm followed by q12 at 5am tomorrow No: Do not add to previous draw Performed By: #### 9 2088 #### [facility] [place] [address] [place] [address], [place] Hemoglobin (Bld) [Mass/Vol] 8.3 g/dL Low 13.0-17.0 [facility] Comment on above: Order Comment: pleas e start lab draw at 5pm followed by q12 at 5am tomorrow Unknown Performed By: #### 9 2088 #### [facility] [place] [address] [place] [address], [place] MAGNESIUM BLOODon 11-23-2021 Magnesium [Mass/Vol] 2.2 mg/dL Normal 1.9-2.7 [facility] Comment on above: Order Comment: No: D o not add to previous draw Performed By: #### 3 0477 #### [facility] [place] [address] [place] [address], [facility] POC GLUCOSE LABon 11-23-2021 Glucose [Mass/Vol] 159 mg/dL High 70-100 [facility] Comment on above: Performed By: #### 3 0313 #### [facility] [place] [address] [place] [address], [facility] Glucose [Mass/Vol] 226 mg/dL High 70-100 [facility] Comment on above: Performed By: #### 8 5499 #### [facility] [place] [address] [place] [address], [facility] PORTABLE CHEST 1 VIEWon 10-27 PORTABLE CHEST 1 VIEW [facility] Department of Radiology [address] [place] [id number] == Patient Name: SANDIP BROUSSARD : 1940 Sex: M Age: Race: White Pt. Location: [id number] Patient Status: I Ordered Date: 11/23/2021 1:10:00 PM Completed Date: 11/23/2021 01:28 PM Requesting Provider: ROBERT CLAY Attending Provider: LUIS RUIZ Report Copy To: Signs & Symptoms: O2 Desaturation History: Comments: Cardiomegaly Exam: PORTABLE CHEST 1 VIEW == PORTABLE CHEST 1 VIEW 11/23/2021 1:28 PM CLINICAL INDICATIONS: O2 Desaturation TECHNOLOGIST COMMENTS: Patient states having shortness of breath. QUESTION FOR THE RADIOLOGIST: Cardiomegaly PROTOCOL: AP(PA) view was obtained. COMPARISON: November 17, 2021 FINDINGS: The heart remains enlarged. Opacity present in the left midlung field on the prior study has resolved. Patchy areas are again noted in the right mid to lower lung field. IMPRESSION: Patchy parenchymal densities in the right mid lower lung field may represent pneumonia. Persistent cardiomegaly. Electronically signed: Jasper Plunkett. Transcribed by: [email or web address], User Resident: Electronically Signed by: JASPER PLUNKETT @ 11/23/2021 02:34 PM Normal [facility] Comment on above: Order Comment: Cardi omegaly COMP METABOLIC PANELon 11-22 Albumin [Mass/Vol] 3.3 g/dL Low 3.5-5.7 [facility] Comment on above: Order Comment: No: D o not add to previous draw Performed By: #### 1 0, [id number] ####[facility] [place] [place] [address], [facility] ALKALINE PHOSPH 37 IU/L Normal 34-104 [facility] Comment on above: Order Comment: No: D o not add to previous draw Performed By: #### 1 69, 78568 ####[facility] [place] [place] [address], [place] ALT [Catalytic activity/Vol] 32 U/L Normal 7-52 [facility] Comment on above: Order Comment: No: D o not add to previous draw Performed By: #### 1 69, 60175 ####[facility] [place] [place] [address], [place] AST [Catalytic activity/Vol] 17 U/L Normal 13-39 [facility] Comment on above: Order Comment: No: D o not add to previous draw Performed By: #### 1 0, 66051 ####[facility] [place] [place] [address], [place] Bilirubin [Mass/Vol] 0.9 mg/dL Normal 0.3-1.0 [facility] Comment on above: Order Comment: No: D o not add to previous draw Performed By: #### 1 69, 45976 ####[facility] [place] [place] [address], [place] Calcium [Mass/Vol] 8.3 mg/dL Low 8.6-10.3 [facility] Comment on above: Order Comment: No: D o not add to previous draw Performed By: #### 1 69, 57122 ####[facility] [place] [place] [address], [place] Chloride [Moles/Vol] 103 mmol/L Normal 98-107 [facility] Comment on above: Order Comment: No: D o not add to previous draw Performed By: #### 1 69, 43271 ####[facility] [place] [place] [address], [place] CO2 [Moles/Vol] 28 mmol/L Normal 21-31 [facility] Comment on above: Order Comment: No: D o not add to previous draw Performed By: #### 1 69, 14923 ####[facility] [place] [place] [address], [place] Creatinine [Mass/Vol] 1.92 mg/dL High 0.70-1.30 [facility] Comment on above: Order Comment: No: D o not add to previous draw Performed By: #### 1 69, 53839 ####[facility] [place] [place] [address], [place] eGFR- 41 ml/min/1.73sq m Abnormal >60 [facility] Comment on above: Order Comment: No: D o not add to previous draw Result Comment: Calc ulation may not be valid for patients over 70 years Performed By: #### 1 0, 77288 ####[facility] [place] [place] [address], [place] eGFR- non- 34 ml/min/1.73sq m Abnormal >60 [facility] Comment on above: Order Comment: No: D o not add to previous draw Result Comment: Calc ulation may not be valid for patients over 70 years Performed By: #### 1 0, 61814 ####[facility] [place] [place] [address], [place] Glucose [Mass/Vol] 128 mg/dL High 70-100 [facility] Comment on above: Order Comment: No: D o not add to previous draw Performed By: #### 1 69, 76521 ####[facility] [place] [place] [address], [place] Potassium [Moles/Vol] 3.5 mmol/L Normal 3.5-5.1 [facility] Comment on above: Order Comment: No: D o not add to previous draw Performed By: #### 1 69, 52291 ####[facility] [place] [place] [address], [place] Protein [Mass/Vol] 5.7 g/dL Low 6.0-8.3 [facility] Comment on above: Order Comment: No: D o not add to previous draw Performed By: #### 1 69, 38147 ####[facility] [place] [place] [address], [place] Sodium [Moles/Vol] 142 mmol/L Normal 136-145 [facility] Comment on above: Order Comment: No: D o not add to previous draw Performed By: #### 1 69, 85804 ####[facility] [place] [place] [address], [place] Urea nitrogen [Mass/Vol] 51 mg/dL High 7-25 [facility] Comment on above: Order Comment: No: D o not add to previous draw Performed By: #### 1 0070, 51847 ####[facility] [place] [place] [address], [facility] HEMOGLOBINon 11-22-2021 Hemoglobin (Bld) [Mass/Vol] 9.1 g/dL Low 13.0-17.0 [facility] Comment on above: Order Comment: meredith holden start lab draw at 5pm followed by q12 at 5am tomorrow No: Do not add to previous draw Performed By: #### 9 2089 #### [facility] [place] [address] [place] [address], [facility] MAGNESIUM BLOODon 11-22-2021 Magnesium [Mass/Vol] 2.1 mg/dL Normal 1.9-2.7 [facility] Comment on above: Order Comment: No: D o not add to previous draw Performed By: #### 1 0070, 78506 ####[facility] [place] [place] [address], [facility] POC GLUCOSE LABon 11-22-2021 Glucose [Mass/Vol] 155 mg/dL High 70-100 [facility] Comment on above: Performed By: #### 8 5499 #### [facility] [place] [address] [place] [address], [place] Glucose [Mass/Vol] 227 mg/dL High 70-100 [facility] Comment on above: Performed By: #### 8 5499 #### [facility] [place] [address] [place] [address], [place] Glucose [Mass/Vol] 141 mg/dL High 70-100 [facility] Comment on above: Performed By: #### 3 4 #### [facility] [place] [address] [place] [address], [place] UFH HEPARIN ASSAYon 04-28-20 22 UNFRACTIONATED HEPARIN 0.20 IU/mL Low 0.30-0.70 [facility] Comment on above: Result Comment: Brittani roxaban and Apixaban will interfere with the anti Xa assay used to monitor UFH and LMWH. Performed By: #### 5 0103 #### [facility] [place] [address] CBC W/DIFFon 11-21-2021 ABS NEUTROPHILS 4.3 10*3/uL Normal 1.6-7.6 [facility] Comment on above: Order Comment: RIGHT BICEP Performed By: #### 3 0313 #### [facility] [place] [address] [facility] [place] [address], [facility] ANISO Moderate Normal [facility] Comment on above: Order Comment: RIGHT BICEP Performed By: #### 3 0313 #### [facility] [place] [address] [facility] [place] [address], [facility] Basophils (Bld) [#/Vol] 0.0 10*3/uL Normal 0.0-0.2 [facility] Comment on above: Order Comment: RIGHT BICEP Performed By: #### 3 0313 #### [facility] [place] [address] [facility] [place] [address], [facility] Basophils/100 WBC (Bld) 0.0 % Normal 0.0-1.0 [facility] Comment on above: Order Comment: RIGHT BICEP Performed By: #### 3 0313 #### [facility] [place] [address] [place] [address], [facility] Eosinophils (Bld) [#/Vol] 0.0 10*3/uL Normal 0.0-0.5 [facility] Comment on above: Order Comment: RIGHT BICEP Performed By: #### 3 0313 #### [facility] [place] [address] [place] [address], [facility] Eosinophils/100 WBC (Bld) 0.0 % Normal 0.0-6.0 [facility] Comment on above: Order Comment: RIGHT BICEP Performed By: #### 3 3 #### [facility] [place] [address] [place] [address], [facility] Erythrocyte distribution width (RBC) [Ratio] 25.5 % High 11.5-15.0 [facility] Comment on above: Order Comment: RIGHT BICEP Performed By: #### 3 3 #### [facility] [place] [address] [place] [address], [facility] GIANT PLATELETS Present Normal [facility] Comment on above: Order Comment: RIGHT BICEP Performed By: #### 3 3 #### [facility] [place] [address] [place] [address], [facility] Hematocrit (Bld) [Volume fraction] 25.6 % Low 39.0-50.0 [facility] Comment on above: Order Comment: RIGHT BICEP Performed By: #### 3 3 #### [facility] [place] [address] [place] [address], [facility] Hemoglobin (Bld) [Mass/Vol] 8.7 g/dL Low 13.0-17.0 [facility] Comment on above: Order Comment: RIGHT BICEP Performed By: #### 3 3 #### [facility] [place] [address] [place] [address], [place] IMM PLATELET FRAC 18.9 % High 0.8-6.3 [facility] Comment on above: Order Comment: RIGHT BICEP Performed By: #### 3 3 #### [facility] [place] [address] [place] [address], [place] Lymphocytes (Bld) [#/Vol] 0.4 10*3/uL Low 1.2-4.0 [facility] Comment on above: Order Comment: RIGHT BICEP Performed By: #### 3 3 #### [facility] [place] [address] [place] [address], [place] Lymphocytes/100 WBC (Bld) 7.7 % Low 20.0-45.0 [facility] Comment on above: Order Comment: RIGHT BICEP Performed By: #### 3 0313 #### [facility] [place] [address] [place] [address], [facility] MACRO Slight Normal [facility] Comment on above: Order Comment: RIGHT BICEP Performed By: #### 3 0313 #### [facility] [place] [address] [place] [address], [facility] MCH (RBC) [Entitic mass] 35.2 pg High 27.0-33.0 [facility] Comment on above: Order Comment: RIGHT BICEP Performed By: #### 3 0313 #### [facility] [place] [address] [place] [address], [facility] MCHC (RBC) [Mass/Vol] 34.0 g/dL Normal 32.0-35.0 [facility] Comment on above: Order Comment: RIGHT BICEP Performed By: #### 3 0313 #### [facility] [place] [address] [place] [address], [facility] MCV (RBC) [Entitic vol] 103.6 fL High 82.0-98.0 [facility] Comment on above: Order Comment: RIGHT BICEP Performed By: #### 3 0313 #### [facility] [place] [address] METAMYELO 1.9 % High 0.0-0.0 [facility] Comment on above: Order Comment: RIGHT BICEP Performed By: #### 3 0313 #### [facility] [place] [address] [facility] [place] [address], [facility] Monocytes (Bld) [#/Vol] 0.7 10*3/uL Normal 0.1-1.0 [facility] Comment on above: Order Comment: RIGHT BICEP Performed By: #### 3 3 #### [facility] [place] [address] [place] [address], [place] MONOS 12.5 % High 5.0-12.0 [facility] Comment on above: Order Comment: RIGHT BICEP Performed By: #### 3 0313 #### [facility] [place] [address] [place] [address], [place] MYELOS 1.0 % High 0.0-0.0 [facility] Comment on above: Order Comment: RIGHT BICEP Performed By: #### 3 0313 #### [facility] [place] [address] [place] [address], [place] Neutrophils/100 WBC (Bld) 76.9 % High 40.0-72.0 [facility] Comment on above: Order Comment: RIGHT BICEP Performed By: #### 3 3 #### [facility] [place] [address] [place] [address], [place] Nucleated RBC/100 WBC (Bld) [Ratio] 1 % High 0-0 [facility] Comment on above: Order Comment: RIGHT BICEP Performed By: #### 3 3 #### [facility] [place] [address] [place] [address], [place] PLAT CNT 122 10*3/uL Low 150-400 [facility] Comment on above: Order Comment: RIGHT BICEP Performed By: #### 3 3 #### [facility] [place] [address] [place] [address], [place] POIK Slight Normal [facility] Comment on above: Order Comment: RIGHT BICEP Performed By: #### 3 0313 #### [facility] [place] [address] [place] [address], [place] RBC (Bld) [#/Vol] 2.47 10*6/uL Low 4.20-5.70 [facility] Comment on above: Order Comment: RIGHT BICEP Performed By: #### 3 3 #### [facility] [place] [address] [place] [address], [place] WBC (Bld) [#/Vol] 5.62 10*3/uL Normal 4.00-10.60 [facility] Comment on above: Order Comment: RIGHT BICEP Performed By: #### 3 0313 #### [facility] [place] [address] [place] [address], [place] COMP METABOLIC PANELon 11-21 Albumin [Mass/Vol] 3.3 g/dL Low 3.5-5.7 [facility] Comment on above: Order Comment: No: D o not add to previous draw Performed By: #### 8 6001 #### [facility] [place] [address] [place] [address], [facility] ALKALINE PHOSPH 36 IU/L Normal 34-104 [facility] Comment on above: Order Comment: No: D o not add to previous draw Performed By: #### 8 6001 #### [facility] [place] [address] [place] [address], [place] ALT [Catalytic activity/Vol] 46 U/L Normal 7-52 [facility] Comment on above: Order Comment: No: D o not add to previous draw Performed By: #### 8 6001 #### [facility] [place] [address] [place] [address], [place] AST [Catalytic activity/Vol] 24 U/L Normal 13-39 [facility] Comment on above: Order Comment: No: D o not add to previous draw Performed By: #### 8 6001 #### [facility] [place] [address] [place] [address], [place] Bilirubin [Mass/Vol] 1.0 mg/dL Normal 0.3-1.0 [facility] Comment on above: Order Comment: No: D o not add to previous draw Performed By: #### 8 6001 #### [facility] [place] [address] [place] [address], [place] Calcium [Mass/Vol] 8.4 mg/dL Low 8.6-10.3 [facility] Comment on above: Order Comment: No: D o not add to previous draw Performed By: #### 8 6001 #### [facility] [place] [address] [place] [address], [place] Chloride [Moles/Vol] 103 mmol/L Normal 98-107 [facility] Comment on above: Order Comment: No: D o not add to previous draw Performed By: #### 8 6001 #### [facility] [place] [address] [place] [address], [place] CO2 [Moles/Vol] 31 mmol/L Normal 21-31 [facility] Comment on above: Order Comment: No: D o not add to previous draw Performed By: #### 8 6001 #### [facility] [place] [address] [place] [address], [place] Creatinine [Mass/Vol] 2.18 mg/dL High 0.70-1.30 [facility] Comment on above: Order Comment: No: D o not add to previous draw Performed By: #### 8 [id number] #### [facility] [place] [address] [place] [address], [facility] eGFR- 35 ml/min/1.73sq m Abnormal >60 [facility] Comment on above: Order Comment: No: D o not add to previous draw Result Comment: Calc ulation may not be valid for patients over 70 years Performed By: #### 8 6001 #### [facility] [place] [address] [place] [address], [place] eGFR- non- 29 ml/min/1.73sq m Abnormal >60 [facility] Comment on above: Order Comment: No: D o not add to previous draw Result Comment: Calc ulation may not be valid for patients over 70 years Performed By: #### 8 6001 #### [facility] [place] [address] [place] [address], [place] Glucose [Mass/Vol] 140 mg/dL High 70-100 [facility] Comment on above: Order Comment: No: D o not add to previous draw Performed By: #### 8 6001 #### [facility] [place] [address] [place] [address], [facility] Potassium [Moles/Vol] 3.3 mmol/L Low 3.5-5.1 [facility] Comment on above: Order Comment: No: D o not add to previous draw Performed By: #### 8 6001 #### [facility] [place] [address] [place] [address], [facility] Protein [Mass/Vol] 5.9 g/dL Low 6.0-8.3 [facility] Comment on above: Order Comment: No: D o not add to previous draw Performed By: #### 8 6001 #### [facility] [place] [address] [place] [address], [facility] Sodium [Moles/Vol] 143 mmol/L Normal 136-145 [facility] Comment on above: Order Comment: No: D o not add to previous draw Performed By: #### 8 6001 #### [facility] [place] [address] [place] [address], [facility] Urea nitrogen [Mass/Vol] 58 mg/dL High 7-25 [facility] Comment on above: Order Comment: No: D o not add to previous draw Performed By: #### 8 6001 #### [facility] [place] [address] [place] [id number], [facility] FOLATE SERUMon 11-21-2021 SERUM FOLATE 4.85 ng/mL Low 6.60-1000.00 [facility] Comment on above: Result Comment: Norm al range reflects World Health Organization International Standard Performed By: #### 1 0070, 76618, 23906, 42910 ####[facility] [place] [place] [address], [facility] HEMATOCRITon 11-21-2021 Hematocrit (Bld) [Volume fraction] 25.6 % Low 39.0-50.0 [facility] Comment on above: Order Comment: pleas e start lab draw at 5pm followed by q12 at 5am tomorrow No: Do not add to previous draw Performed By: #### 9 2088 #### [facility] [place] [address] [place] [address], [facility] HEMOGLOBINon 11-21-2021 Hemoglobin (Bld) [Mass/Vol] 8.8 g/dL Low 13.0-17.0 [facility] Comment on above: Order Comment: pleas e start lab draw at 5pm followed by q12 at 5am tomorrow No: Do not add to previous draw Performed By: #### 9 2088 #### [facility] [place] [address] [place] [address], [facility] Hemoglobin (Bld) [Mass/Vol] 8.5 g/dL Low 13.0-17.0 [facility] Comment on above: Order Comment: pleas e start lab draw at 5pm followed by q12 at 5am tomorrow No: Do not add to previous draw Performed By: #### 9 2088 #### [facility] [place] [address] [place] [address], [facility] MAGNESIUM BLOODon 11-21-2021 Magnesium [Mass/Vol] 2.2 mg/dL Normal 1.9-2.7 [facility] Comment on above: Order Comment: No: D o not add to previous draw Performed By: #### 8 6001 #### [facility] [place] [address] [place] [address], [facility] POC GLUCOSE LABon 11-21-2021 Glucose [Mass/Vol] 135 mg/dL High 70-100 [facility] Comment on above: Performed By: #### 8 5499 #### [facility] [place] [address] [place] [address], [facility] Glucose [Mass/Vol] 142 mg/dL High 70-100 [facility] Comment on above: Performed By: #### 8 5499 #### [facility] [place] [address] [place] [address], [facility] UFH HEPARIN ASSAYon 11-22-19 UNFRACTIONATED HEPARIN 0.41 IU/mL Normal 0.30-0.70 [facility] Comment on above: Result Comment: Brittani roxaban and Apixaban will interfere with the anti Xa assay used to monitor UFH and LMWH. Performed By: #### 3 0477 #### [facility] [place] [address] [place] [address], [facility] VITAMIN B12on 11-21-2021 Cobalamin (Vitamin B12) [Mass/Vol] 422 pg/mL Normal 180-914 [facility] Comment on above: Result Comment: REFE RENCE RANGES: 180-914 pg/mL Normal 145-179 pg/mL Indeterminate <145 pg/mL Deficient Performed By: #### 1 0070, 70661, 35509, 80587 ####[facility] [place] [facility] [place] [address], [facility] BASIC METABOLIC PANELon 10-27 Calcium [Mass/Vol] 8.4 mg/dL Low 8.6-10.3 [facility] Comment on above: Order Comment: No: D o not add to previous draw Performed By: #### 3 0477 #### [facility] [place] [address] [place] [address], [facility] Chloride [Moles/Vol] 104 mmol/L Normal 98-107 [facility] Comment on above: Order Comment: No: D o not add to previous draw Performed By: #### 3 0477 #### [facility] [place] [address] [place] [address], [facility] CO2 [Moles/Vol] 31 mmol/L Normal 21-31 [facility] Comment on above: Order Comment: No: D o not add to previous draw Performed By: #### 3 0477 #### [facility] [place] [address] [place] [address], [facility] Creatinine [Mass/Vol] 2.22 mg/dL High 0.70-1.30 [facility] Comment on above: Order Comment: No: D o not add to previous draw Performed By: #### 3 0477 #### [facility] [place] [address] [place] [address], [facility] eGFR- 34 ml/min/1.73sq m Abnormal >60 [facility] Comment on above: Order Comment: No: D o not add to previous draw Result Comment: Calc ulation may not be valid for patients over 70 years Performed By: #### 3 0477 #### [facility] [place] [address] [place] [address], [facility] eGFR- non- 28 ml/min/1.73sq m Abnormal >60 [facility] Comment on above: Order Comment: No: D o not add to previous draw Result Comment: Calc ulation may not be valid for patients over 70 years Performed By: #### 3 0477 #### [facility] [place] [address] [place] [address], [place] Glucose [Mass/Vol] 139 mg/dL High 70-100 [facility] Comment on above: Order Comment: No: D o not add to previous draw Performed By: #### 3 0477 #### [facility] [place] [address] [place] [address], [place] Potassium [Moles/Vol] 3.3 mmol/L Low 3.5-5.1 [facility] Comment on above: Order Comment: No: D o not add to previous draw Performed By: #### 3 0477 #### [facility] [place] [address] [place] [address], [place] Sodium [Moles/Vol] 143 mmol/L Normal 136-145 [facility] Comment on above: Order Comment: No: D o not add to previous draw Performed By: #### 3 0477 #### [facility] [place] [address] [place] [address], [place] Urea nitrogen [Mass/Vol] 49 mg/dL High 7-25 [facility] Comment on above: Order Comment: No: D o not add to previous draw Performed By: #### 3 0477 #### [facility] [place] [address] [facility] [place] [address], [facility] CBC COMPLETE BLOOD COUNTon 0 11-20-2021 Hematocrit (Bld) [Volume fraction] 21.9 % Low 39.0-50.0 [facility] Comment on above: Order Comment: pleas e start lab draw at 5pm followed by q12 at 5am tomorrow No: Do not add to previous draw Performed By: #### 9 2088 #### [facility] [place] [address] Hemoglobin (Bld) [Mass/Vol] 7.1 g/dL Low 13.0-17.0 [facility] Comment on above: Order Comment: pleas e start lab draw at 5pm followed by q12 at 5am tomorrow No: Do not add to previous draw Performed By: #### 9 2088 #### [facility] [place] [address] [facility] [place] [address], [facility] IMM PLATELET FRAC 20.3 % High 0.8-6.3 [facility] Comment on above: Order Comment: pleas e start lab draw at 5pm followed by q12 at 5am tomorrow No: Do not add to previous draw Performed By: #### 9 2088 #### [facility] [place] [address] [facility] [place] [id number], [facility] MCH (RBC) [Entitic mass] 36.4 pg High 27.0-33.0 [facility] Comment on above: Order Comment: pleas e start lab draw at 5pm followed by q12 at 5am tomorrow No: Do not add to previous draw Performed By: #### 2088 #### [facility] [place] [address] [place] [id number], [facility] MCHC (RBC) [Mass/Vol] 32.4 g/dL Normal 32.0-35.0 [facility] Comment on above: Order Comment: pleas e start lab draw at 5pm followed by q12 at 5am tomorrow No: Do not add to previous draw Performed By: #### 9 2088 #### [facility] [place] [address] [facility] [place] [address], [facility] MCV (RBC) [Entitic vol] 112.3 fL High 82.0-98.0 [facility] Comment on above: Order Comment: pleas e start lab draw at 5pm followed by q12 at 5am tomorrow No: Do not add to previous draw Performed By: #### 2088 #### [facility] [place] [address] [facility] [place] [address], [facility] Nucleated RBC/100 WBC (Bld) [Ratio] 0 % Normal 0-0 [facility] Comment on above: Order Comment: pleas e start lab draw at 5pm followed by q12 at 5am tomorrow No: Do not add to previous draw Performed By: #### 2088 #### [facility] [place] [address] [place] [address], [facility] PLAT CNT 91 10*3/uL Low 150-400 [facility] Comment on above: Order Comment: pleas e start lab draw at 5pm followed by q12 at 5am tomorrow No: Do not add to previous draw Performed By: #### 9 2088 #### [facility] [place] [address] [place] [id number], [facility] RBC (Bld) [#/Vol] 1.95 10*6/uL Low 4.20-5.70 [facility] Comment on above: Order Comment: pleas e start lab draw at 5pm followed by q12 at 5am tomorrow No: Do not add to previous draw Performed By: #### 2088 #### [facility] [place] [address] [place] [address], [facility] RDW ---- Normal 11.5-15.0 [facility] Comment on above: Order Comment: pleas e start lab draw at 5pm followed by q12 at 5am tomorrow No: Do not add to previous draw Performed By: #### 9 2088 #### [facility] [place] [address] [place] [address], [facility] WBC (Bld) [#/Vol] 8.30 10*3/uL Normal 4.00-10.60 [facility] Comment on above: Order Comment: pleas e start lab draw at 5pm followed by q12 at 5am tomorrow No: Do not add to previous draw Performed By: #### 9 2088 #### [facility] [place] [address] [place] [address], [facility] HEMATOCRITon 11-20-2021 Hematocrit (Bld) [Volume fraction] 23.6 % Low 39.0-50.0 [facility] Comment on above: Order Comment: pleas e start lab draw at 5pm followed by q12 at 5am tomorrow No: Do not add to previous draw Performed By: #### 2088 #### [facility] [place] [address] [place] [address], [facility] HEMOGLOBINon 11-20-2021 Hemoglobin (Bld) [Mass/Vol] 7.8 g/dL Low 13.0-17.0 [facility] Comment on above: Order Comment: pleas e start lab draw at 5pm followed by q12 at 5am tomorrow No: Do not add to previous draw Performed By: #### 9 2088 #### [facility] [place] [address] [place] [address], [facility] MAGNESIUM BLOODon 11-20-2021 Magnesium [Mass/Vol] 2.2 mg/dL Normal 1.9-2.7 [facility] Comment on above: Order Comment: No: D o not add to previous draw Performed By: #### 3 0477 #### [facility] [place] [address] [place] [address], [facility] PHOSPHORUS BLOODon Phosphate [Mass/Vol] 3.7 mg/dL Normal 2.5-5.0 [facility] Comment on above: Order Comment: No: D o not add to previous draw Performed By: #### 3 0477 #### [facility] [place] [address] [place] [address], [facility] POC GLUCOSE LABon 11-20-2021 Glucose [Mass/Vol] 137 mg/dL High 70-100 [facility] Comment on above: Performed By: #### 3 0313 #### [facility] [place] [address] [place] [address], [facility] Glucose [Mass/Vol] 134 mg/dL High 70-100 [facility] Comment on above: Performed By: #### 3 2044 #### [facility] [place] [address] [place] [address], [facility] Glucose [Mass/Vol] 148 mg/dL High 70-100 [facility] Comment on above: Performed By: #### 8 5499 #### [facility] [place] [address] [facility] [place] [address], [facility] RBC'S 1 UNITon 11-20-2021 CROSSMATCH INTERP 1 COMP Normal [facility] Comment on above: Performed By: #### 8 6001 #### [facility] [place] [address] [place] [address], [facility] PRODUCT CODE 1 E0336 Normal [facility] Comment on above: Performed By: #### 8 6001 #### [facility] [place] [address] [facility] [place] [address], [facility] PRODUCT STATUS 1 RE Normal [facility] Comment on above: Result Comment: Resu lt changed by IF on 11/21/2021 07:27. The previous value was XM. Performed By: #### 8 6001 #### [facility] [place] [address] [place] [address], [facility] UNIT ABO 1 A Normal [facility] Comment on above: Performed By: #### 8 6001 #### [facility] [place] [address] [place] [address], [facility] UNIT ID 1 [id number] Normal [facility] Comment on above: Performed By: #### 8 6001 #### [facility] [place] [address] [place] [address], [facility] UNIT RH 1 Positive Normal [facility] Comment on above: Performed By: #### 8 6001 #### [facility] [place] [address] [place] [address], [facility] RBC'S 2 UNITSon 11-20-2021 CROSSMATCH INTERP 1 COMP Normal [facility] Comment on above: Order Comment: Evalu ate for Cardiomegaly Performed By: #### 8 6002 ####[facility] [place] [place] [address], [facility] CROSSMATCH INTERP 2 COMP Normal [facility] Comment on above: Order Comment: Evalu ate for Cardiomegaly Performed By: #### 8 6002 ####[facility] [place] [place] [address], [facility] PRODUCT CODE 1 E0336 Normal [facility] Comment on above: Order Comment: Evalu ate for Cardiomegaly Performed By: #### 8 6002 ####[facility] [place] [place] [address], [facility] PRODUCT CODE 2 E0336 Normal [facility] Comment on above: Order Comment: Evalu ate for Cardiomegaly Performed By: #### 8 6002 ####[facility] [place] [place] [address], [facility] PRODUCT STATUS 1 PT Normal [facility] Comment on above: Order Comment: Evalu ate for Cardiomegaly Result Comment: Resu lt changed by IF on 11/20/2021 08:02. The previous value was XM. Result changed by IF on 11/21/2021 00:30. The previous value was IS. Performed By: #### 8 6002 ####[facility] [place] [place] [address], [facility] PRODUCT STATUS 2 PT Normal [facility] Comment on above: Order Comment: Evalu ate for Cardiomegaly Result Comment: Resu lt changed by IF on 11/20/2021 19:00. The previous value was XX. Result changed by IF on 11/21/2021 00:30. The previous value was IS. Performed By: #### 8 6002 ####[facility] [place] [place] [address], [place] UNIT ABO 1 A Normal [facility] Comment on above: Order Comment: Evalu ate for Cardiomegaly Performed By: #### 8 6002 ####[facility] [place] [place] [address], [place] UNIT ABO 2 A Normal [facility] Comment on above: Order Comment: Evalu ate for Cardiomegaly Performed By: #### 8 6002 ####[facility] [place] [place] [address], [facility] UNIT ID 1 [id number] Normal [facility] Comment on above: Order Comment: Evalu ate for Cardiomegaly Performed By: #### 8 6002 ####[facility] [place] [place] [address], [place] UNIT ID 2 [id number] Normal [facility] Comment on above: Order Comment: Evalu ate for Cardiomegaly Performed By: #### 8 6002 ####[facility] [place] [place] [address], [place] UNIT RH 1 Positive Normal [facility] Comment on above: Order Comment: Evalu ate for Cardiomegaly Performed By: #### 8 6002 ####[facility] [place] [place] [address], [place] UNIT RH 2 Positive Normal [facility] Comment on above: Order Comment: Evalu ate for Cardiomegaly Performed By: #### 8 6002 ####[facility] [place] UFH HEPARIN ASSAYon 11-21-19 UNFRACTIONATED HEPARIN 0.32 IU/mL Normal 0.30-0.70 [facility] Comment on above: Result Comment: Brittani roxaban and Apixaban will interfere with the anti Xa assay used to monitor UFH and LMWH. Performed By: #### 3 0477 #### [facility] [place] [address] UNFRACTIONATED HEPARIN 0.36 IU/mL Normal 0.30-0.70 [facility] Comment on above: Result Comment: Brittani roxaban and Apixaban will interfere with the anti Xa assay used to monitor UFH and LMWH. Performed By: #### 3 0477 #### [facility] [place] [address] APTTon 11-19-2021 aPTT Coag (Bld) [Time] 32.7 s Normal 25.0-35.0 [facility] Comment on above: Order Comment: No: D o not add to previous draw Result Comment: ALL RESULTS MUST BE INTERPRETED WITH RESPECT TO BLOOD DRAWING ARTIFACT OR DILUTION ERROR OF ANTICOAGULANT AT THE TIME OF SAMPLING. THE APTT SHOULD NOT BE USED TO MONITOR UNFRACTIONATED HEPARIN THERAPY, THIS LABORATORY NO LONGER HAS AN ESTABLISHED THERAPEUTIC RANGE BASED ON THE APTT. IT IS RECOMMENDED THAT THE UFH - HEPARIN ASSAY (ANTI-XA ACTIVITY) BE USED FOR THIS PURPOSE. Performed By: #### 5 0103 #### [facility] [place] [address] BASIC METABOLIC PANELon 10-27 Calcium [Mass/Vol] 8.3 mg/dL Low 8.6-10.3 [facility] Comment on above: Order Comment: Evalu ate for Cardiomegaly Performed By: #### 1 0070, 28642, 41513 ####[facility] [place] [place] [address], [facility] Chloride [Moles/Vol] 104 mmol/L Normal 98-107 [facility] Comment on above: Order Comment: Evalu ate for Cardiomegaly Performed By: #### 1 0070, 34507, 29026 ####[facility] [place] [place] [address], [facility] CO2 [Moles/Vol] 24 mmol/L Normal 21-31 [facility] Comment on above: Order Comment: Evalu ate for Cardiomegaly Performed By: #### 1 0070, 20429, 78761 ####[facility] [place] [place] [address], [facility] Creatinine [Mass/Vol] 2.03 mg/dL High 0.70-1.30 [facility] Comment on above: Order Comment: Evalu ate for Cardiomegaly Performed By: #### 1 0, 55811, 63446 ####[facility] [place] [place] [address], [facility] eGFR- 38 ml/min/1.73sq m Abnormal >60 [facility] Comment on above: Order Comment: Evalu ate for Cardiomegaly Result Comment: Calc ulation may not be valid for patients over 70 years Performed By: #### 1 0, [id number], [id number] ####[facility] [place] [place] [address], [facility] eGFR- non- 32 ml/min/1.73sq m Abnormal >60 [facility] Comment on above: Order Comment: Evalu ate for Cardiomegaly Result Comment: Calc ulation may not be valid for patients over 70 years Performed By: #### 1 0070, [id number], [id number] ####[facility] [place] [place] [address], [place] Glucose [Mass/Vol] 141 mg/dL High 70-100 [facility] Comment on above: Order Comment: Evalu ate for Cardiomegaly Performed By: #### 1 0070, [id number], [id number] ####[facility] [place] [place] [address], [facility] Potassium [Moles/Vol] 3.8 mmol/L Normal 3.5-5.1 [facility] Comment on above: Order Comment: Evalu ate for Cardiomegaly Performed By: #### 1 0070, [id number], 20070 ####[facility] [place] [place] [address], [facility] Sodium [Moles/Vol] 141 mmol/L Normal 136-145 [facility] Comment on above: Order Comment: Evalu ate for Cardiomegaly Performed By: #### 1 0070, 68016, 59052 ####[facility] [place] [place] [address], [facility] Urea nitrogen [Mass/Vol] 42 mg/dL High 7-25 [facility] Comment on above: Order Comment: Evalu ate for Cardiomegaly Performed By: #### 1 0070, 10640, 26986 ####[facility] [place] CBC COMPLETE BLOOD COUNTon 0 11-19-2021 Hematocrit (Bld) [Volume fraction] 24.9 % Low 39.0-50.0 [facility] Comment on above: Order Comment: RIGHT BICEP Performed By: #### 3 7573 #### [facility] [place] [address] [place] [address], [facility] Hemoglobin (Bld) [Mass/Vol] 7.9 g/dL Low 13.0-17.0 [facility] Comment on above: Order Comment: RIGHT BICEP Performed By: #### 3 3 #### [facility] [place] [address] [place] [address], [place] IMM PLATELET FRAC 19.8 % High 0.8-6.3 [facility] Comment on above: Order Comment: RIGHT BICEP Performed By: #### 3 0313 #### [facility] [place] [address] [place] [address], [facility] MCH (RBC) [Entitic mass] 36.1 pg High 27.0-33.0 [facility] Comment on above: Order Comment: RIGHT BICEP Performed By: #### 3 0313 #### [facility] [place] [address] [place] [id number], [facility] MCHC (RBC) [Mass/Vol] 31.7 g/dL Low 32.0-35.0 [facility] Comment on above: Order Comment: RIGHT BICEP Performed By: #### 3 0313 #### [facility] [place] [address] [place] [address], [facility] MCV (RBC) [Entitic vol] 113.7 fL High 82.0-98.0 [facility] Comment on above: Order Comment: RIGHT BICEP Performed By: #### 3 0313 #### [facility] [place] [address] [facility] [place] [address], [facility] Nucleated RBC/100 WBC (Bld) [Ratio] 0 % Normal 0-0 [facility] Comment on above: Order Comment: RIGHT BICEP Performed By: #### 3 0313 #### [facility] [place] [address] [place] [address], [facility] PLAT CNT 73 10*3/uL Low 150-400 [facility] Comment on above: Order Comment: RIGHT BICEP Performed By: #### 3 0313 #### [facility] [place] [address] [facility] [place] [address], [facility] RBC (Bld) [#/Vol] 2.19 10*6/uL Low 4.20-5.70 [facility] Comment on above: Order Comment: RIGHT BICEP Performed By: #### 3 0313 #### [facility] [place] [address] [place] [address], [facility] RDW ---- Normal 11.5-15.0 [facility] Comment on above: Order Comment: RIGHT BICEP Performed By: #### 3 312 #### [facility] [place] [address] [place] [address], [place] WBC (Bld) [#/Vol] 11.57 10*3/uL High 4.00-10.60 [facility] Comment on above: Order Comment: RIGHT BICEP Performed By: #### 3 312 #### [facility] [place] [address] [place] [address], [place] MAGNESIUM BLOODon 11-19-2021 Magnesium [Mass/Vol] 2.0 mg/dL Normal 1.9-2.7 [facility] Comment on above: Order Comment: Evalu ate for Cardiomegaly Performed By: #### 1 0070, [id number], 66920 ####[facility] [place] [place] [address], [place] PHOSPHORUS BLOODon Phosphate [Mass/Vol] 3.3 mg/dL Normal 2.5-5.0 [facility] Comment on above: Order Comment: Evalu ate for Cardiomegaly Performed By: #### 1 0070, 48377, 09452 ####[facility] [place] [place] [address], [place] POC GLUCOSE LABon 11-19-2021 Glucose [Mass/Vol] 174 mg/dL High 70-100 [facility] Comment on above: Performed By: #### 3 2043 #### [facility] [place] [address] [place] [address], [place] Glucose [Mass/Vol] 183 mg/dL High 70-100 [facility] Comment on above: Performed By: #### 3 2043 #### [facility] [place] [address] [place] [address], [place] Glucose [Mass/Vol] 161 mg/dL High 70-100 [facility] Comment on above: Performed By: #### 3 2043 #### [facility] [place] [address] TROPONIN-Ion 11-19-2021 Troponin I.cardiac [Mass/Vol] 2.17 ng/mL Critically high 0.00-0.04 [facility] Comment on above: Order Comment: Evalu ate for Cardiomegaly Result Comment: M-MO EVIOUS CRITICAL RESULT REFERENCE RANGES: 0.00 - 0.04 ng/ml NORMAL 0.05 - 0.50 ng/ml INDETERMINATE > 0.50 ng/ml CONSISTENT WITH AN M.I. Performed By: #### 3 5200 ####[facility] [place] UFH HEPARIN ASSAYon 11-20-19 22 UNFRACTIONATED HEPARIN 0.15 IU/mL Critically low 0.30-0.70 [facility] Comment on above: Result Comment: RESU LTS CHECKED AND CALLED. ACCURATELY READ BACK BY GALA SEN RN AT 2055 Rivaroxaban and Apixaban will interfere with the anti Xa assay used to monitor UFH and LMWH. Performed By: #### 3 0477 #### [facility] [place] [address] UNFRACTIONATED HEPARIN <0.10 Critically low 0.30-0.70 [facility] Comment on above: Result Comment: RESU LTS CHECKED AND CALLED. ACCURATELY READ BACK BY TIFF ROSSI RN AT 1316 Rivaroxaban and Apixaban will interfere with the anti Xa assay used to monitor UFH and LMWH. Performed By: #### 5 0103 #### [facility] [place] [address] *BLOOD CULTUREon 11-18-2021 *BLOOD CULTURE Clinical Report: (D) Specimen: BLOOD CULTURE Collected: 11/18/2021 04:44 Status: Final Last Updated: 11/23/2021 08:16 (1) RIGHT BICEP CULT RES (Final) No Growth Day 5 Normal [facility] Comment on above: Order Comment: RIGHT BICEP Performed By: #### 3 0313 #### [facility] [place] [address] *BLOOD CULTURE Clinical Report: (D) Specimen: BLOOD CULTURE Collected: 11/18/2021 04:44 Status: Final Last Updated: 11/23/2021 08:16 (1) LEFT AC CULT RES (Final) No Growth Day 5 Normal [facility] Comment on above: Order Comment: RIGHT BICEP Performed By: #### 3 0313 #### [facility] [place] [address] *SPUTUM CULTUREon 11-18-2021 *SPUTUM CULTURE Clinical Report: (D) Specimen/Source: SPUTUM/OTHER Collected: 11/18/2021 17:28 Status: Final Last Updated: 11/21/2021 13:25 (1) No: Do not add to previous draw GRAM (Final) < 10 Squamous Epithelial Cells, >25 Polys Per Low Power Field Many Gram Positive Cocci In Pairs And Chains Few Gram Negative Bacilli Rare Yeast ISO (Final) Pseudomonas aeruginosa Rare Growth ISO (Final) Colonies Consistent with Upper Respiratory Lindy Moderate Growth ISOLATE: Pseudomonas aeruginosa SHAHEEN (mcg/ml) AZTREONAM (AZM) 8 Susceptible CEFEPIME (FEP) 4 Susceptible CIPROFLOXACIN (CIP) 0.5 Susceptible GENTAMICIN (GM) <=2 Susceptible MEROPENEM (MEM) <=0.5 Susceptible PIP/TAZO (TZP) 8/4 Susceptible TOBRAMYCIN (TOB) <=2 Susceptible Normal [facility] Comment on above: Order Comment: RIGHT BICEP Performed By: #### 3 0313 #### [facility] [place] [address] APTTon 11-18-2021 aPTT Coag (Bld) [Time] 27.5 s Normal 25.0-35.0 [facility] Comment on above: Order Comment: No: D o not add to previous draw Result Comment: ALL RESULTS MUST BE INTERPRETED WITH RESPECT TO BLOOD DRAWING ARTIFACT OR DILUTION ERROR OF ANTICOAGULANT AT THE TIME OF SAMPLING. THE APTT SHOULD NOT BE USED TO MONITOR UNFRACTIONATED HEPARIN THERAPY, THIS LABORATORY NO LONGER HAS AN ESTABLISHED THERAPEUTIC RANGE BASED ON THE APTT. IT IS RECOMMENDED THAT THE UFH - HEPARIN ASSAY (ANTI-XA ACTIVITY) BE USED FOR THIS PURPOSE. Performed By: #### 5 0103 #### [facility] [place] [address] [facility]. [address] aPTT Coag (Bld) [Time] 25.6 s Normal 25.0-35.0 [facility] Comment on above: Result Comment: ALL RESULTS MUST BE INTERPRETED WITH RESPECT TO BLOOD DRAWING ARTIFACT OR DILUTION ERROR OF ANTICOAGULANT AT THE TIME OF SAMPLING. THE APTT SHOULD NOT BE USED TO MONITOR UNFRACTIONATED HEPARIN THERAPY, THIS LABORATORY NO LONGER HAS AN ESTABLISHED THERAPEUTIC RANGE BASED ON THE APTT. IT IS RECOMMENDED THAT THE UFH - HEPARIN ASSAY (ANTI-XA ACTIVITY) BE USED FOR THIS PURPOSE. Performed By: #### 3 0477 #### [facility] [place] [address] [facility] [address] [address] BASIC METABOLIC PANELon - Calcium [Mass/Vol] 8.5 mg/dL Low 8.6-10.3 [facility] Comment on above: Order Comment: No: D o not add to previous draw Performed By: #### 8 6001 #### [facility] [place] [address] [facility] [place] [address], [facility] Chloride [Moles/Vol] 100 mmol/L Normal 98-107 [facility] Comment on above: Order Comment: No: D o not add to previous draw Performed By: #### 8 6001 #### [facility] [place] [address] [facility]. [place] [id number], [facility] CO2 [Moles/Vol] 26 mmol/L Normal 21-31 [facility] Comment on above: Order Comment: No: D o not add to previous draw Performed By: #### 8 6001 #### [facility] [place] [address] [place] [id number], [facility] Creatinine [Mass/Vol] 2.27 mg/dL High 0.70-1.30 [facility] Comment on above: Order Comment: No: D o not add to previous draw Performed By: #### 8 6001 #### [facility] [place] [address] [place] [address], [facility] eGFR- 34 ml/min/1.73sq m Abnormal >60 [facility] Comment on above: Order Comment: No: D o not add to previous draw Result Comment: Calc ulation may not be valid for patients over 70 years Performed By: #### 8 6001 #### [facility] [place] [address] [place] [address], [place] eGFR- non- 28 ml/min/1.73sq m Abnormal >60 [facility] Comment on above: Order Comment: No: D o not add to previous draw Result Comment: Calc ulation may not be valid for patients over 70 years Performed By: #### 8 6001 #### [facility] [place] [address] [place] [address], [place] Glucose [Mass/Vol] 162 mg/dL High 70-100 [facility] Comment on above: Order Comment: No: D o not add to previous draw Performed By: #### 8 6001 #### [facility] [place] [address] [place] [address], [place] Potassium [Moles/Vol] 4.1 mmol/L Normal 3.5-5.1 [facility] Comment on above: Order Comment: No: D o not add to previous draw Performed By: #### 8 6001 #### [facility] [place] [address] [place] [address], [place] Sodium [Moles/Vol] 140 mmol/L Normal 136-145 [facility] Comment on above: Order Comment: No: D o not add to previous draw Performed By: #### 8 6001 #### [facility] [place] [address] [place] [address], [place] Urea nitrogen [Mass/Vol] 38 mg/dL High 7-25 [facility] Comment on above: Order Comment: No: D o not add to previous draw Performed By: #### 8 6001 #### [facility] [place] [address] [facility] [place] [address], [facility] CBC W/DIFFon 11-18-2021 ABS IMM GRANS 0.1 10*3/uL Normal 0.0-0.2 [facility] Comment on above: Order Comment: No: D o not add to previous draw Performed By: #### 5 0103 #### [facility] [place] [address] [facility] [place] [address], [facility] ABS NEUTROPHILS 8.1 10*3/uL High 1.6-7.6 [facility] Comment on above: Order Comment: No: D o not add to previous draw Performed By: #### 5 0103 #### [facility] [place] [address] [facility] [place] [address], [facility] ANISO Moderate Normal [facility] Comment on above: Order Comment: No: D o not add to previous draw Performed By: #### 5 0103 #### [facility] [place] [address] [facility] [place] [address], [facility] Basophils (Bld) [#/Vol] 0.0 10*3/uL Normal 0.0-0.2 [facility] Comment on above: Order Comment: No: D o not add to previous draw Performed By: #### 5 0103 #### [facility] [place] [address] [facility] [place] [address], [facility] Basophils/100 WBC (Bld) 0.2 % Normal 0.0-1.0 [facility] Comment on above: Order Comment: No: D o not add to previous draw Performed By: #### 5 0103 #### [facility] [place] [address] [place] [address], [facility] Eosinophils (Bld) [#/Vol] 0.0 10*3/uL Normal 0.0-0.5 [facility] Comment on above: Order Comment: No: D o not add to previous draw Performed By: #### 5 0103 #### [facility] [place] [address] [place] [address], [facility] Eosinophils/100 WBC (Bld) 0.0 % Normal 0.0-6.0 [facility] Comment on above: Order Comment: No: D o not add to previous draw Performed By: #### 5 0103 #### [facility] [place] [address] [place] [id number], [facility] Hematocrit (Bld) [Volume fraction] 22.5 % Low 39.0-50.0 [facility] Comment on above: Order Comment: No: D o not add to previous draw Performed By: #### 5 0103 #### [facility] [place] [address] [place] [id number], [facility] Hemoglobin (Bld) [Mass/Vol] 7.3 g/dL Low 13.0-17.0 [facility] Comment on above: Order Comment: No: D o not add to previous draw Performed By: #### 5 0103 #### [facility] [place] [address] [place] [address], [facility] IMM PLATELET FRAC 19.9 % High 0.8-6.3 [facility] Comment on above: Order Comment: No: D o not add to previous draw Performed By: #### 5 0103 #### [facility] [place] [address] [facility] [place] [address], [facility] IMMATURE GRANS 0.8 % Normal 0.0-1.0 [facility] Comment on above: Order Comment: No: D o not add to previous draw Performed By: #### 5 0103 #### [facility] [place] [address] [place] [address], [facility] Lymphocytes (Bld) [#/Vol] 0.6 10*3/uL Low 1.2-4.0 [facility] Comment on above: Order Comment: No: D o not add to previous draw Performed By: #### 5 0103 #### [facility] [place] [address] [place] [address], [facility] Lymphocytes/100 WBC (Bld) 5.3 % Low 20.0-45.0 [facility] Comment on above: Order Comment: No: D o not add to previous draw Performed By: #### 5 0103 #### [facility] [place] [address] [place] [id number], [facility] MACRO Slight Normal [facility] Comment on above: Order Comment: No: D o not add to previous draw Performed By: #### 5 0103 #### [facility] [place] [address] [place] [address], [facility] MCH (RBC) [Entitic mass] 35.4 pg High 27.0-33.0 [facility] Comment on above: Order Comment: No: D o not add to previous draw Performed By: #### 5 0103 #### [facility] [place] [address] [place] [address], [facility] MCHC (RBC) [Mass/Vol] 32.4 g/dL Normal 32.0-35.0 [facility] Comment on above: Order Comment: No: D o not add to previous draw Performed By: #### 5 0103 #### [facility] [place] [address] [place] [address], [facility] MCV (RBC) [Entitic vol] 109.2 fL High 82.0-98.0 [facility] Comment on above: Order Comment: No: D o not add to previous draw Performed By: #### 5 0103 #### [facility] [place] [address] [place] [address], [facility] Monocytes (Bld) [#/Vol] 2.3 10*3/uL High 0.1-1.0 [facility] Comment on above: Order Comment: No: D o not add to previous draw Performed By: #### 5 0103 #### [facility] [place] [address] [place] [address], [facility] MONOS 20.6 % High 5.0-12.0 [facility] Comment on above: Order Comment: No: D o not add to previous draw Performed By: #### 5 0103 #### [facility] [place] [address] [place] [id number], [facility] Neutrophils/100 WBC (Bld) 73.1 % High 40.0-72.0 [facility] Comment on above: Order Comment: No: D o not add to previous draw Performed By: #### 5 0103 #### [facility] [place] [address] [place] [id number], [facility] Nucleated RBC/100 WBC (Bld) [Ratio] 0 % Normal 0-0 [facility] Comment on above: Order Comment: No: D o not add to previous draw Performed By: #### 5 0103 #### [facility] [place] [address] [place] [address], [facility] OTHER 1 2 red cell populations Normal [facility] Comment on above: Order Comment: No: D o not add to previous draw Performed By: #### 5 0103 #### [facility] [place] [address] [facility] [place] [address], [facility] PLAT CNT 53 10*3/uL Low 150-400 [facility] Comment on above: Order Comment: No: D o not add to previous draw Performed By: #### 5 0103 #### [facility] [place] [address] [place] [address], [facility] POIK Slight Normal [facility] Comment on above: Order Comment: No: D o not add to previous draw Performed By: #### 5 0103 #### [facility] [place] [address] [place] [id number], [facility] POLY Slight Normal [facility] Comment on above: Order Comment: No: D o not add to previous draw Performed By: #### 5 0103 #### [facility] [place] [address] [place] [address], [facility] RBC (Bld) [#/Vol] 2.06 10*6/uL Low 4.20-5.70 [facility] Comment on above: Order Comment: No: D o not add to previous draw Performed By: #### 5 0103 #### [facility] [place] [address] [place] [address], [facility] RDW ---- Normal 11.5-15.0 [facility] Comment on above: Order Comment: No: D o not add to previous draw Performed By: #### 5 3 #### [facility] [place] [address] [facility] [place] [address], [facility] WBC (Bld) [#/Vol] 11.14 10*3/uL High 4.00-10.60 [facility] Comment on above: Order Comment: No: D o not add to previous draw Performed By: #### 5 3 #### [facility] [place] [address] [place] [address], [facility] ABS IMM GRANS 0.1 10*3/uL Normal 0.0-0.2 [facility] Comment on above: Performed By: #### 3 3 #### [facility] [place] [address] [place] [address], [facility] ABS NEUTROPHILS 8.0 10*3/uL High 1.6-7.6 [facility] Comment on above: Performed By: #### 3 3 #### [facility] [place] [address] [place] [address], [facility] ANISO Moderate Normal [facility] Comment on above: Performed By: #### 3 3 #### [facility] [place] [address] [place] [id number], [facility] Basophils (Bld) [#/Vol] 0.0 10*3/uL Normal 0.0-0.2 [facility] Comment on above: Performed By: #### 3 3 #### [facility] [place] [address] [facility] Basophils/100 WBC (Bld) 0.2 % Normal 0.0-1.0 [facility] Comment on above: Performed By: #### 3 0313 #### [facility] [place] [facility] [address] Eosinophils (Bld) [#/Vol] 0.0 10*3/uL Normal 0.0-0.5 [facility] Comment on above: Performed By: #### 3 0313 #### [facility] [place] [address] [place] [address], [facility] Eosinophils/100 WBC (Bld) 0.1 % Normal 0.0-6.0 [facility] Comment on above: Performed By: #### 3 0313 #### [facility] [place] [address] Hematocrit (Bld) [Volume fraction] 21.7 % Low 39.0-50.0 [facility] Comment on above: Performed By: #### 3 0313 #### [facility] [place] [address] Hemoglobin (Bld) [Mass/Vol] 7.1 g/dL Low 13.0-17.0 [facility] Comment on above: Performed By: #### 3 0313 #### [facility] [place] [address] IMM PLATELET FRAC 19.7 % High 0.8-6.3 [facility] Comment on above: Performed By: #### 3 0313 #### [facility] [place] [address] [place] [address], [facility] IMMATURE GRANS 1.2 % High 0.0-1.0 [facility] Comment on above: Performed By: #### 3 0313 #### [facility] [place] [address] [place] [address], [facility] Lymphocytes (Bld) [#/Vol] 0.6 10*3/uL Low 1.2-4.0 [facility] Comment on above: Performed By: #### 3 0313 #### [facility] [place] [address] [facility] [place] [address], [facility] Lymphocytes/100 WBC (Bld) 5.0 % Low 20.0-45.0 [facility] Comment on above: Performed By: #### 3 0313 #### [facility] [place] [address] [facility] [place] [address], [facility] MACRO Slight Normal [facility] Comment on above: Performed By: #### 3 0313 #### [facility] [place] [address] [facility] [place] [address], [facility] MCH (RBC) [Entitic mass] 36.0 pg High 27.0-33.0 [facility] Comment on above: Performed By: #### 3 0313 #### [facility] [place] [address] [facility] [place] [address], [facility] MCHC (RBC) [Mass/Vol] 32.7 g/dL Normal 32.0-35.0 [facility] Comment on above: Performed By: #### 3 0313 #### [facility] [place] [address] [facility] [place] [address], [facility] MCV (RBC) [Entitic vol] 110.2 fL High 82.0-98.0 [facility] Comment on above: Performed By: #### 3 0313 #### [facility] [place] [address] [facility] [place] [address], [facility] Monocytes (Bld) [#/Vol] 2.3 10*3/uL High 0.1-1.0 [facility] Comment on above: Performed By: #### 3 0313 #### [facility] [place] [address] [facility] [place] [address], [facility] MONOS 20.6 % High 5.0-12.0 [facility] Comment on above: Performed By: #### 3 0313 #### [facility] [place] [address] Neutrophils/100 WBC (Bld) 72.9 % High 40.0-72.0 [facility] Comment on above: Performed By: #### 3 0313 #### [facility] [place] [address] Nucleated RBC/100 WBC (Bld) [Ratio] 0 % Normal 0-0 [facility] Comment on above: Performed By: #### 3 0313 #### [facility] [place] [address] OTHER 1 2 cell populations Normal [facility] Comment on above: Performed By: #### 3 0313 #### [facility] [place] [address] PLAT CNT 48 10*3/uL Low 150-400 [facility] Comment on above: Performed By: #### 3 0313 #### [facility] [place] [address] POLY Slight Normal [facility] Comment on above: Performed By: #### 3 0313 #### [facility] [place] [address] RBC (Bld) [#/Vol] 1.97 10*6/uL Low 4.20-5.70 [facility] Comment on above: Performed By: #### 3 0313 #### [facility] [place] [address] [place] [address], [facility] RDW ---- Normal 11.5-15.0 [facility] Comment on above: Performed By: #### 3 0313 #### [facility] [place] [address] [place] [address], [facility] WBC (Bld) [#/Vol] 11.02 10*3/uL High 4.00-10.60 [facility] Comment on above: Performed By: #### 3 0313 #### [facility] [place] [address] [place] [address], [facility] COMP METABOLIC PANELon 11-18 Albumin [Mass/Vol] 3.8 g/dL Normal 3.5-5.7 [facility] Comment on above: Order Comment: No: D o not add to previous draw Performed By: #### 8 6001 #### [facility] [place] [address] [place] [address], [facility] ALKALINE PHOSPH 42 IU/L Normal 34-104 [facility] Comment on above: Order Comment: No: D o not add to previous draw Performed By: #### 8 6001 #### [facility] [place] [address] [place] [address], [place] ALT [Catalytic activity/Vol] 48 U/L Normal 7-52 [facility] Comment on above: Order Comment: No: D o not add to previous draw Performed By: #### 8 6001 #### [facility] [place] [address] [place] [address], [facility] AST [Catalytic activity/Vol] 47 U/L High 13-39 [facility] Comment on above: Order Comment: No: D o not add to previous draw Performed By: #### 8 6001 #### [facility] [place] [address] [place] [address], [place] Bilirubin [Mass/Vol] 1.4 mg/dL High 0.3-1.0 [facility] Comment on above: Order Comment: No: D o not add to previous draw Performed By: #### 8 6001 #### [facility] [place] [address] [place] [address], [place] Calcium [Mass/Vol] 8.7 mg/dL Normal 8.6-10.3 [facility] Comment on above: Order Comment: No: D o not add to previous draw Performed By: #### 8 6001 #### [facility] [place] [address] [place] [address], [place] Chloride [Moles/Vol] 103 mmol/L Normal 98-107 [facility] Comment on above: Order Comment: No: D o not add to previous draw Performed By: #### 8 6001 #### [facility] [place] [address] [place] [address], [place] CO2 [Moles/Vol] 27 mmol/L Normal 21-31 [facility] Comment on above: Order Comment: No: D o not add to previous draw Performed By: #### 8 6001 #### [facility] [place] [address] [place] [address], [place] Creatinine [Mass/Vol] 2.44 mg/dL High 0.70-1.30 [facility] Comment on above: Order Comment: No: D o not add to previous draw Performed By: #### 8 6001 #### [facility] [place] [address] [place] [address], [place] eGFR- 31 ml/min/1.73sq m Abnormal >60 [facility] Comment on above: Order Comment: No: D o not add to previous draw Result Comment: Calc ulation may not be valid for patients over 70 years Performed By: #### 8 6001 #### [facility] [place] [address] [place] [address], [place] eGFR- non- 26 ml/min/1.73sq m Abnormal >60 [facility] Comment on above: Order Comment: No: D o not add to previous draw Result Comment: Calc ulation may not be valid for patients over 70 years Performed By: #### 8 6001 #### [facility] [place] [address] [place] [address], [place] Glucose [Mass/Vol] 128 mg/dL High 70-100 [facility] Comment on above: Order Comment: No: D o not add to previous draw Performed By: #### 8 6001 #### [facility] [place] [address] [place] [address], [place] Potassium [Moles/Vol] 4.0 mmol/L Normal 3.5-5.1 [facility] Comment on above: Order Comment: No: D o not add to previous draw Performed By: #### 8 6001 #### [facility] [place] [address] [place] [address], [place] Protein [Mass/Vol] 6.1 g/dL Normal 6.0-8.3 [facility] Comment on above: Order Comment: No: D o not add to previous draw Performed By: #### 8 6001 #### [facility] [place] [address] [place] [address], [place] Sodium [Moles/Vol] 139 mmol/L Normal 136-145 [facility] Comment on above: Order Comment: No: D o not add to previous draw Performed By: #### 8 6001 #### [facility] [place] [address] [place] [address], [place] Urea nitrogen [Mass/Vol] 34 mg/dL High 7-25 [facility] Comment on above: Order Comment: No: D o not add to previous draw Performed By: #### 8 6001 #### [facility] [place] [address] [place] [address], [place] MAGNESIUM BLOODon 11-18-2021 Magnesium [Mass/Vol] 2.2 mg/dL Normal 1.9-2.7 [facility] Comment on above: Order Comment: No: D o not add to previous draw Performed By: #### 8 6001 #### [facility] [place] [address] [place] [address], [place] PHOSPHORUS BLOODon Phosphate [Mass/Vol] 3.5 mg/dL Normal 2.5-5.0 [facility] Comment on above: Order Comment: No: D o not add to previous draw Performed By: #### 8 6001 #### [facility] [place] [address] [place] [address], [facility] POC GLUCOSE LABon 11-18-2021 Glucose [Mass/Vol] 171 mg/dL High 70-100 [facility] Comment on above: Performed By: #### 3 4 #### [facility] [place] [address] [facility] [address], [facility] Glucose [Mass/Vol] 169 mg/dL High 70-100 [facility] Comment on above: Performed By: #### 8 5499 #### [facility] [place] [address] [facility] [place] [address], [facility] POC SARS COV2 ANTIGEN NEGATI VEon 11-18-2021 POC SARS COV2 ANTIGEN NEG Negative Normal NEGATIVE [facility] Comment on above: Result Comment: Nega tive results should be treated as presumptive and confirmation with a molecular assay, if necessary, for patient management, may be performed. Negative results do not rule out SARS-CoV-2 infection and not should be used as the sole basis for treatment or patient management decisions, including infection control decisions. Negative results should be considered in the context of a patient's recent exposures, history, and the presence of clinical signs and symptoms consistent with COVID-19. The Clarity COVID-19 Antigen Rapid Test Cassette is a rapid chromatographic immunoassay intended for the qualitative detection of the nucleocapsid protein antigen from SARS-CoV-2 in direct nasopharyngeal swab (GRADES 7 8 TUTOR) specimens from individuals who are suspected of COVID-19 by their healthcare provider within the first six days of symptom onset. Testing is limited to laboratories certified under the Clinical Laboratory Improvement Amendments of 1988 (CLIA), 42 U.S.C. ???263a, that meet the requirements to perform moderate complexity, high complexity, or waived tests. This test is authorized for use at the Point of Care (POC), i.e., in patient care settings operating under a CLIA Certificate of Waiver, Certificate of Compliance, or Certificate of Accreditation. Performed By: #### 3 4 #### [facility] [place] [address] PROCALCITONINon 11-18-2021 PROCALCITONIN 7.09 ng/mL Critically high 0.00-0.10 [facility] Comment on above: Order Comment: No: D o not add to previous draw Result Comment: Susp ected Lower Respiratory Tract Infection: 0.1-0.25ng/mL- Low likelihood for bacterial infection;Antibiotics discouraged.* >0.25ng/mL- Increased likelihood bacterial infection;Antibiotics encouraged. Suspected Sepsis: Strongly consider initiating antibiotics in all unstable patients. 0.1-0.5ng/mL- Low likelihood for sepsis; Antibiotics discouraged.* >0.5ng/mL- Increased likelihood sepsis; Antibiotics encouraged. >2.0ng/mL- High risk of sepsis/septic shock; Antibiotics strongly encouraged. *Recommend retesting PCT within 6-12hours if clinically indicated and initial PCT<0.5ng/mL RESULTS CHECKED AND CALLED. ACCURATELY READ BACK BY NOMAN CUMMINGS RN Performed By: #### 5 0103 #### [facility] [place] [address] PROTHROMBIN TIMEon 2 INR Coag (PPP) [Relative time] 1.31 {INR} High 0.91-1.16 [facility] Comment on above: Order Comment: No: D o not add to previous draw Result Comment: ACCC P RECOMMENDED INR FOR WARFARIN THERAPY ------ ------- CONDITION INR PROPHYLAXIS OF VENOUS THROMBOSIS 2-3 (HIGH-RISK SURGERY) TREATMENT OF VENOUS THROMBOSIS 2-3 TREATMENT OF PULMONARY EMBOLISM 2-3 PREVENTION OF SYSTEMIC EMBOLISM: 2-3 ACUTE MYOCARDIAL INFARCTION TISSUE HEART VALVES VALVULAR HEART DISEASE ATRIAL FIBRILLATION RECURRENT SYSTEMIC EMBOLISM MECHANICAL HEART VALVE 2.5-3.5 FROM: ORAL ANTICOAGULANTS. MECHANISM OF ACTION, CLINICAL EFFECTIVENESS, AND OPTIMAL THERAPEUTIC RANGE. CHEST 1995;108:231S-246S. Performed By: #### 5 0103 #### [facility] [place] [address] [facility]. [address] PT Coag (PPP) [Time] 16.3 s High 12.3-14.8 [facility] Comment on above: Order Comment: No: D o not add to previous draw Result Comment: ALL RESULTS MUST BE INTERPRETED WITH RESPECT TO BLOOD DRAWING ARTIFACT OR DILUTION ERROR OF ANTICOAGULANT AT THE TIME OF SAMPLING. Performed By: #### 5 0103 #### [facility] [place] [address] [facility] [address] INR Coag (PPP) [Relative time] 1.35 {INR} High 0.91-1.16 [facility] Comment on above: Result Comment: ACCC P RECOMMENDED INR FOR WARFARIN THERAPY ------ ------- CONDITION INR PROPHYLAXIS OF VENOUS THROMBOSIS 2-3 (HIGH-RISK SURGERY) TREATMENT OF VENOUS THROMBOSIS 2-3 TREATMENT OF PULMONARY EMBOLISM 2-3 PREVENTION OF SYSTEMIC EMBOLISM: 2-3 ACUTE MYOCARDIAL INFARCTION TISSUE HEART VALVES VALVULAR HEART DISEASE ATRIAL FIBRILLATION RECURRENT SYSTEMIC EMBOLISM MECHANICAL HEART VALVE 2.5-3.5 FROM: ORAL ANTICOAGULANTS. MECHANISM OF ACTION, CLINICAL EFFECTIVENESS, AND OPTIMAL THERAPEUTIC RANGE. CHEST 1995;108:231S-246S. Performed By: #### 3 0477 #### [facility] [place] [address] [place] [address], [facility] PT Coag (PPP) [Time] 16.7 s High 12.3-14.8 [facility] Comment on above: Result Comment: ALL RESULTS MUST BE INTERPRETED WITH RESPECT TO BLOOD DRAWING ARTIFACT OR DILUTION ERROR OF ANTICOAGULANT AT THE TIME OF SAMPLING. Performed By: #### 3 0477 #### [facility] [place] [address] [facility] [place] [address], [facility] RBC'S 1 UNITon 11-18-2021 CROSSMATCH INTERP 1 COMP Normal [facility] Comment on above: Performed By: #### 8 6001 ####[facility] [place] [facility].[address] PRODUCT CODE 1 [id number] Normal [facility] Comment on above: Performed By: #### 8 6001 ####[facility] [place] [facility].[address] PRODUCT STATUS 1 PT Normal [facility] Comment on above: Result Comment: Resu lt changed by IF on 11/18/2021 02:27. The previous value was XX. Result changed by IF on 11/19/2021 00:30. The previous value was IS. Performed By: #### 8 6001 ####[facility] [place] [facility].[address] UNIT ABO 1 A Normal [facility] Comment on above: Performed By: #### 8 6001 ####[facility] [place] [facility].[address] UNIT ID 1 [id number] Normal [facility] Comment on above: Performed By: #### 8 6001 ####[facility] [place] UNIT RH 1 Positive Normal [facility] Comment on above: Performed By: #### 8 6001 ####[facility] [place] TROPONIN-Ion 11-18-2021 Troponin I.cardiac [Mass/Vol] 2.11 ng/mL Critically high 0.00-0.04 [facility] Comment on above: Order Comment: No: D o not add to previous draw Result Comment: M-MO EVIOUS CRITICAL RESULT REFERENCE RANGES: 0.00 - 0.04 ng/ml NORMAL 0.05 - 0.50 ng/ml INDETERMINATE > 0.50 ng/ml CONSISTENT WITH AN M.I. Performed By: #### 8 6001 #### [facility] [place] [address] Troponin I.cardiac [Mass/Vol] 1.88 ng/mL Critically high 0.00-0.04 [facility] Comment on above: Order Comment: No: D o not add to previous draw Result Comment: M-MO EVIOUS CRITICAL RESULT REFERENCE RANGES: 0.00 - 0.04 ng/ml NORMAL 0.05 - 0.50 ng/ml INDETERMINATE > 0.50 ng/ml CONSISTENT WITH AN M.I. Performed By: #### 8 6001 #### [facility] [place] [address] Troponin I.cardiac [Mass/Vol] 1.38 ng/mL Critically high 0.00-0.04 [facility] Comment on above: Order Comment: No: D o not add to previous draw Result Comment: M-MO EVIOUS CRITICAL RESULT REFERENCE RANGES: 0.00 - 0.04 ng/ml NORMAL 0.05 - 0.50 ng/ml INDETERMINATE > 0.50 ng/ml CONSISTENT WITH AN M.I. Performed By: #### 3 5200 ####[facility] [place] [place] [address], [place] Troponin I.cardiac [Mass/Vol] 2.00 ng/mL Critically high 0.00-0.04 [facility] Comment on above: Result Comment: M-MO EVIOUS CRITICAL RESULT REFERENCE RANGES: 0.00 - 0.04 ng/ml NORMAL 0.05 - 0.50 ng/ml INDETERMINATE > 0.50 ng/ml CONSISTENT WITH AN M.I. Performed By: #### 8 6001 #### [facility] [place] [address] [place] [address], [facility] Troponin I.cardiac [Mass/Vol] 1.90 ng/mL Critically high 0.00-0.04 [facility] Comment on above: Result Comment: M-MO EVIOUS CRITICAL RESULT REFERENCE RANGES: 0.00 - 0.04 ng/ml NORMAL 0.05 - 0.50 ng/ml INDETERMINATE > 0.50 ng/ml CONSISTENT WITH AN M.I. Performed By: #### 3 5200 ####[facility] [place] [place] [address], [facility] VENOUS BLOOD GASon 2 BASE EXCESS 4 mmol/L Normal [facility] Comment on above: Performed By: #### 5 0103 #### [facility] [place] [address] [place] [address], [place] DELIVERY SYSTEMS V60 Normal [facility] Comment on above: Performed By: #### 5 0103 #### [facility] [place] [address] [place] [address], [place] HCO3 (Bld) [Moles/Vol] 29 mmol/L Normal [facility] Comment on above: Performed By: #### 5 0103 #### [facility] [place] [address] [place] [address], [place] MODALITY BIPAP 14/6 Normal [facility] Comment on above: Performed By: #### 5 0103 #### [facility] [place] [address] Oxygen (Bld) [Partial pressure] 30 mm[Hg] Low 35-45 [facility] Comment on above: Performed By: #### 5 0103 #### [facility] [place] [address] [facility]. [address] Oxygen saturation in Blood 37.1 % Low 65.0-75.0 [facility] Comment on above: Performed By: #### 5 0103 #### [facility] [place] [address] [facility] [place] [address], [facility] PCO2 44 mmHg Normal [facility] Comment on above: Performed By: #### 5 0103 #### [facility] [place] [address] [place] [address], [facility] pH (Bld) 7.43 [pH] High 7.31-7.41 [facility] Comment on above: Performed By: #### 5 0103 #### [facility] [place] [address] APTTon 11-17-2021 aPTT Coag (Bld) [Time] 30.1 s Normal 25.0-35.0 [facility] Comment on above: Result Comment: ALL RESULTS MUST BE INTERPRETED WITH RESPECT TO BLOOD DRAWING ARTIFACT OR DILUTION ERROR OF ANTICOAGULANT AT THE TIME OF SAMPLING. THE APTT SHOULD NOT BE USED TO MONITOR UNFRACTIONATED HEPARIN THERAPY, THIS LABORATORY NO LONGER HAS AN ESTABLISHED THERAPEUTIC RANGE BASED ON THE APTT. IT IS RECOMMENDED THAT THE [facility] - HEPARIN ASSAY (ANTI-XA ACTIVITY) BE USED FOR THIS PURPOSE. Performed By: #### 5 0103 #### [facility] [place] [address] [facility]. [address] BASIC METABOLIC PANELon 04- Calcium [Mass/Vol] 8.6 mg/dL Normal 8.6-10.3 [facility] Comment on above: Performed By: #### 1 0070, [id number], [id number] ####[facility] [place] [place] [address], [place] Chloride [Moles/Vol] 99 mmol/L Normal 98-107 [facility] Comment on above: Performed By: #### 1 69, , [id number] ####[facility] [place] [place] [address], [place] CO2 [Moles/Vol] 26 mmol/L Normal 21-31 The [facility] Comment on above: Performed By: #### 1 0, , [id number] ####[facility] [place] [place] [address], [place] Creatinine [Mass/Vol] 2.68 mg/dL High 0.70-1.30 [facility] Comment on above: Performed By: #### 1 69, , [id number] ####[facility] [place] [place] [address], [facility] eGFR- 28 ml/min/1.73sq m Abnormal >60 [facility] Comment on above: Result Comment: Calc ulation may not be valid for patients over 70 years Performed By: #### 1 69, , 50155 ####[facility] [place] [facility] [place] [address], [place] eGFR- non- 23 ml/min/1.73sq m Abnormal >60 [facility] Comment on above: Result Comment: Calc ulation may not be valid for patients over 70 years Performed By: #### 1 69, , 39127 ####[facility] [place] [place] [address], [place] Glucose [Mass/Vol] 185 mg/dL High 70-100 [facility] Comment on above: Performed By: #### 1 69, , 05805 ####[facility] [place] [place] [address], [place] Potassium [Moles/Vol] 4.0 mmol/L Normal 3.5-5.1 [facility] Comment on above: Performed By: #### 1 0070, [id number], 53864 ####[facility] [place] Sodium [Moles/Vol] 140 mmol/L Normal 136-145 [facility] Comment on above: Performed By: #### 1 0070, 83397, 84817 ####[facility] [place] Urea nitrogen [Mass/Vol] 34 mg/dL High 7-25 [facility] Comment on above: Performed By: #### 1 0070, 40247, 88700 ####[facility] [place] BNP EDon 11-17-2021 Natriuretic peptide B (Bld) [Mass/Vol] 1081 pg/mL High 0-100 [facility] Comment on above: Result Comment: Give n the appropriate clinical setting a BNP result of >100 pg/mL indicates congestive heart failure. Performed By: #### 8 6001 #### [facility] [place] [address] [facility]. [address] CBC W/DIFFon 11-17-2021 ABS IMM GRANS 0.2 10*3/uL Normal 0.0-0.2 [facility] Comment on above: Performed By: #### 3 0313 #### [facility] [place] [address] [facility]. [address] ABS NEUTROPHILS 9.3 10*3/uL High 1.6-7.6 [facility] Comment on above: Performed By: #### 3 0313 #### [facility] [place] [address] ANISO Moderate Normal [facility] Comment on above: Performed By: #### 3 0313 #### [facility] [place] [address] [facility] [place] [address], [facility] Basophils (Bld) [#/Vol] 0.0 10*3/uL Normal 0.0-0.2 [facility] Comment on above: Performed By: #### 3 0313 #### [facility] [place] [address] [place] [address], [facility] Basophils/100 WBC (Bld) 0.2 % Normal 0.0-1.0 [facility] Comment on above: Performed By: #### 3 0313 #### [facility] [place] [address] [place] [address], [facility] Eosinophils (Bld) [#/Vol] 0.0 10*3/uL Normal 0.0-0.5 [facility] Comment on above: Performed By: #### 3 0313 #### [facility] [place] [address] [place] [address], [facility] Eosinophils/100 WBC (Bld) 0.0 % Normal 0.0-6.0 [facility] Comment on above: Performed By: #### 3 0313 #### [facility] [place] [address] [facility] [address] Erythrocyte distribution width (RBC) [Ratio] 21.6 % High 11.5-15.0 [facility] Comment on above: Performed By: #### 3 0313 #### [facility] [place] [address] [facility] [place] [address], [facility] Hematocrit (Bld) [Volume fraction] 20.1 % Low 39.0-50.0 [facility] Comment on above: Performed By: #### 3 0313 #### [facility] [place] [address] [place] [address], [facility] Hemoglobin (Bld) [Mass/Vol] 6.5 g/dL Low 13.0-17.0 [facility] Comment on above: Performed By: #### 3 0313 #### [facility] [place] [address] HYPO Moderate Normal [facility] Comment on above: Performed By: #### 3 0313 #### [facility] [place] [address] IMM PLATELET FRAC 20.4 % High 0.8-6.3 [facility] Comment on above: Performed By: #### 3 0313 #### [facility] [place] [address] IMMATURE GRANS 1.3 % High 0.0-1.0 [facility] Comment on above: Performed By: #### 3 0313 #### [facility] [place] [address] Lymphocytes (Bld) [#/Vol] 0.6 10*3/uL Low 1.2-4.0 [facility] Comment on above: Performed By: #### 3 0313 #### [facility] [place] [address] Lymphocytes/100 WBC (Bld) 4.7 % Low 20.0-45.0 [facility] Comment on above: Performed By: #### 3 0313 #### [facility] [place] [address] MACRO Moderate Normal [facility] Comment on above: Performed By: #### 3 0313 #### [facility] [place] [address] MCH (RBC) [Entitic mass] 37.1 pg High 27.0-33.0 [facility] Comment on above: Performed By: #### 3 0313 #### [facility] [place] [address] MCHC (RBC) [Mass/Vol] 32.3 g/dL Normal 32.0-35.0 [facility] Comment on above: Performed By: #### 3 0313 #### [facility] [place] [address] [place] [address], [facility] MCV (RBC) [Entitic vol] 114.9 fL High 82.0-98.0 [facility] Comment on above: Performed By: #### 3 0313 #### [facility] [place] [address] [place] [address], [facility] Monocytes (Bld) [#/Vol] 2.5 10*3/uL High 0.1-1.0 [facility] Comment on above: Performed By: #### 3 3 #### [facility] [place] [address] [place] [id number], [facility] MONOS 19.8 % High 5.0-12.0 [facility] Comment on above: Performed By: #### 3 3 #### [facility] [place] [address] [place] [address], [facility] Neutrophils/100 WBC (Bld) 74.0 % High 40.0-72.0 [facility] Comment on above: Performed By: #### 3 0313 #### [facility] [place] [address] [facility] [place] [id number], [facility] Nucleated RBC/100 WBC (Bld) [Ratio] 0 % Normal 0-0 [facility] Comment on above: Performed By: #### 3 3 #### [facility] [place] [address] [place] [address], [facility] OVALOCYTES Moderate Normal [facility] Comment on above: Performed By: #### 3 3 #### [facility] [place] [address] [place] [address], [facility] PLAT CNT 52 10*3/uL Low 150-400 [facility] Comment on above: Performed By: #### 3 3 #### [facility] [place] [address] [place] [address], [facility] POIK Moderate Normal [facility] Comment on above: Performed By: #### 3 3 #### [facility] [place] [address] [facility] [place] [address], [facility] RBC (Bld) [#/Vol] 1.75 10*6/uL Low 4.20-5.70 [facility] Comment on above: Performed By: #### 3 0313 #### [facility] [place] [address] [facility] [place] [address], [facility] WBC (Bld) [#/Vol] 12.59 10*3/uL High 4.00-10.60 [facility] Comment on above: Performed By: #### 3 0313 #### [facility] [place] [address] MAGNESIUM BLOODon 11-17-2021 Magnesium [Mass/Vol] 1.7 mg/dL Low 1.9-2.7 [facility] Comment on above: Performed By: #### 1 0070, 25859, 91713 ####[facility] [place] PORTABLE CHEST 1 VIEWon 10-27 PORTABLE CHEST 1 VIEW [facility] Department of Radiology [address] [place] [id number] == Patient Name: SANDIP BROUSSARD : 1940 Sex: M Age: Race: White Pt. Location: [facility] Patient Status: E Ordered Date: 11/17/2021 7:20:00 PM Completed Date: 11/17/2021 07:37 PM Requesting Provider: ДМИТРИЙ MEEKS Attending Provider: TRISTON SANDOVAL Report Copy To: Signs & Symptoms: O2 Desaturation History: Comments: Evaluate for Cardiomegaly Exam: PORTABLE CHEST 1 VIEW == PORTABLE CHEST 1 VIEW 11/17/2021 7:37 PM CLINICAL INDICATIONS: O2 Desaturation TECHNOLOGIST COMMENTS: Patient states chest pain , shortness of breath , wheezing and AFib. QUESTION FOR THE RADIOLOGIST: Evaluate for Cardiomegaly PROTOCOL: AP(PA) view was obtained. COMPARISON: None FINDINGS: AP portable upright chest radiograph obtained. Heart size is enlarged. Pulmonary vasculature appears mildly increased. There are some areas of patchy nodular-like consolidation throughout the mid and lower lungs. Defibrillator pad overlies right chest. No large pleural effusion and no pneumothorax is identified. IMPRESSION: 1. Cardiac enlargement. Areas of nodular opacity throughout the mid and lower lungs are nonspecific and may reflect multifocal infection, asymmetric pulmonary edema, or hemorrhage among other etiologies. Clinical correlation and follow-up recommended. Electronically signed: Jasper Zelaya. Transcribed by: [email or web address], User Resident: Electronically Signed by: JASPER ZELAYA @ 11/17/2021 07:43 PM Normal [facility] Comment on above: Order Comment: Evalu ate for Cardiomegaly PROTHROMBIN TIMEon INR Coag (PPP) [Relative time] 1.42 {INR} High 0.91-1.16 [facility] Comment on above: Result Comment: ACCC P RECOMMENDED INR FOR WARFARIN THERAPY ------ ------- CONDITION INR PROPHYLAXIS OF VENOUS THROMBOSIS 2-3 (HIGH-RISK SURGERY) TREATMENT OF VENOUS THROMBOSIS 2-3 TREATMENT OF PULMONARY EMBOLISM 2-3 PREVENTION OF SYSTEMIC EMBOLISM: 2-3 ACUTE MYOCARDIAL INFARCTION TISSUE HEART VALVES VALVULAR HEART DISEASE ATRIAL FIBRILLATION RECURRENT SYSTEMIC EMBOLISM MECHANICAL HEART VALVE 2.5-3.5 FROM: ORAL ANTICOAGULANTS. MECHANISM OF ACTION, CLINICAL EFFECTIVENESS, AND OPTIMAL THERAPEUTIC RANGE. CHEST 1995;108:231S-246S. Performed By: #### 5 0103 #### [facility] [place] [address] PT Coag (PPP) [Time] 17.3 s High 12.3-14.8 [facility] Comment on above: Result Comment: ALL RESULTS MUST BE INTERPRETED WITH RESPECT TO BLOOD DRAWING ARTIFACT OR DILUTION ERROR OF ANTICOAGULANT AT THE TIME OF SAMPLING. Performed By: #### 5 0103 #### [facility] [place] [facility] [place] [address], [facility] RBC'S 1 UNITon 11-17-2021 CROSSMATCH INTERP 1 COMP Normal [facility] Comment on above: Performed By: #### 5 0103 #### [facility] [place] [facility]. [address] PRODUCT CODE 1 [id number] Normal [facility] Comment on above: Performed By: #### 5 0103 #### [facility] [place] [facility]. [address] PRODUCT STATUS 1 PT Normal [facility] Comment on above: Result Comment: Resu lt changed by IF on 11/17/2021 20:41. The previous value was XM. Result changed by IF on 11/18/2021 00:30. The previous value was IS. Performed By: #### 5 3 #### [facility] [place] [facility] [place] [address], [facility] UNIT ABO 1 A Normal [facility] Comment on above: Performed By: #### 5 3 #### [facility] [place] [facility] [place] [address], [facility] UNIT ID 1 [id number] Normal [facility] Comment on above: Performed By: #### 5 0103 #### [facility] [place] [address] UNIT RH 1 Positive Normal [facility] Comment on above: Performed By: #### 5 0103 #### [facility] [place] [address] TROPONIN-Ion 11-17-2021 Troponin I.cardiac [Mass/Vol] 1.79 ng/mL Critically high 0.00-0.04 [facility] Comment on above: Result Comment: M-TR OPONIN INITIAL CRITICAL HIGH; RESPUN AND RETESTED M-CRITICAL RESULT(S) REVIEWED, CALLED TO AND READ BACK BY Judy Pablo RN at 2130. REFERENCE RANGES: 0.00 - 0.04 ng/ml NORMAL 0.05 - 0.50 ng/ml INDETERMINATE > 0.50 ng/ml CONSISTENT WITH AN M.I. Performed By: #### 1 0070, 24500, 12527 ####[facility] [place] [facility].[address] TYPE AND SCREENon 11-17-2021 ABO INTERPRETATION A Normal [facility] Comment on above: Performed By: #### 6 2586 ####[facility] [place] [facility].[address] RH INTERPRETATION Positive Normal [facility] Comment on above: Performed By: #### 6 2586 ####[facility] [place] [facility].[address] CBC W Auto Differential pane l (Bld)on 11-02-2021 Abs Baso 0.00 k/uL <0.11 k/uL [facility] Abs Elliott 1.26 k/uL High <0.87 k/[facility]L [facility] Absolute nRBC <0.01 <0.01 k/uL [facility] Anisocytosis Ql (Bld) Present [facility] Basophils/100 WBC (Bld) 0.0 % [facility] Differential cell count method Nom (Bld) Manual [facility] Eosinophils (Bld) [#/Vol] 0.00 10*3/uL <0.46 k/uL [facility] Eosinophils/100 WBC (Bld) 0.0 % [facility] Erythrocyte distribution width (RBC) [Ratio] 24.7 % High 11.5 - 15.0 % [facility] Hematocrit (Bld) [Volume fraction] 25.2 % Low 39.0 - 51.0 % [facility] Hemoglobin (Bld) [Mass/Vol] 7.9 g/dL Low 13.0 - 17.0 g/dL [facility] Lymphocytes (Bld) [#/Vol] 1.33 10*3/uL 1.00 - 4.00 k/uL [facility] Lymphocytes/100 WBC (Bld) 19.0 % [facility] MCH (RBC) [Entitic mass] 36.2 pg High 26.0 - 34.0 pg [facility] MCHC (RBC) [Mass/Vol] 31.3 g/dL 30.5 - 36.0 g/dL [facility] MCV (RBC) [Entitic vol] 115.6 fL High 80.0 - 100.0 fL [facility] Monocytes/100 WBC (Bld) 18.0 % [facility] Neutrophils (Bld) [#/Vol] 4.42 10*3/uL 1.45 - 7.50 k/uL [facility] Neutrophils/100 WBC (Bld) 63.0 % [facility] Nucleated RBC/100 WBC (Bld) [Ratio] 0.0 /100 WBC [facility] Ovalocytes LM Ql (Bld) Few [facility] Platelet Estimate Adequate [facility] Platelet mean volume (Bld) [Entitic vol] 13.8 fL High 9.0 - 12.7 fL [facility] Platelets (Bld) [#/Vol] 226 10*3/uL 150 - 400 k/uL [facility] Polychromasia LM Ql (Bld) Slight [facility] RBC (Bld) [#/Vol] 2.18 10*6/uL Low 4.20 - 6.00 m/uL [facility] Red Cell Morph Reviewed [facility] WBC (Bld) [#/Vol] 7.02 10*3/uL 3.70 - 11. 00 k/uL [facility] Comprehensive metabolic 2000 panelon 11-01-2021 Albumin [Mass/Vol] 4.2 g/dL 3.9 - 4.9 g/dL [facility] ALP [Catalytic activity/Vol] 51 U/L 38 - 113 U/L [facility] ALT [Catalytic activity/Vol] 22 U/L 10 - 54 U/L [facility] Anion gap [Moles/Vol] 13 mmol/L 9 - 18 mmol/L [facility] AST [Catalytic activity/Vol] 13 U/L Low 14 - 40 U/L [facility] Bilirubin [Mass/Vol] 0.5 mg/dL 0.2 - 1.3 mg/dL [facility] Calcium [Mass/Vol] 9.5 mg/dL 8.5 - 10.2 mg/dL [facility] Chloride [Moles/Vol] 104 mmol/L 97 - 105 mmol/L [facility] CO2 [Moles/Vol] 24 mmol/L 22 - 30 mmol/L [facility] Creatinine [Mass/Vol] 1.98 mg/dL High 0.73 - 1.22 mg/dL [facility] Estimated Glomerular Filtration Rate 33 mL/min/1.73m Low >=60 mL/min/1.73m [facility] Glucose [Mass/Vol] 154 mg/dL High 74 - 99 mg/dL [facility] Potassium [Moles/Vol] 3.6 mmol/L Low 3.7 - 5.1 mmol/L [facility] Protein [Mass/Vol] 6.3 g/dL 6.3 - 8.0 g/dL [facility] Sodium [Moles/Vol] 141 mmol/L 136 - 144 mmol/L [facility] Urea nitrogen [Mass/Vol] 41 mg/dL High 9 - 24 mg/dL [facility] LD LACTATE DEHYDROon 022 LDH [Catalytic activity/Vol] 263 U/L High 135 - 225 U/L [facility] Audiology Office/Clinic Note on 06-23-2018 Audiology Office/Clinic Note Patient seen for hearing aid evaluation, accompanied by his . Hearing test results were reviewed and appropriate hearing aid styles and levels of technology were discussed. Patient expressed interest in two Phonak Bolero B50 or 70-SP BTE hearing aids in [place] color with custom earmolds. Bilateral earmold impressions were made without incident, and otoscopy prior to and following impressions was unremarkable. Earmolds will be held until decision is made on hearing aids. Insurance company will be contacted regarding hearing aid benefits, and patient will be called with this information. Plan: Patient will decide on level of technology following obtaining information regarding hearing aid benefits through insurance. N/C today. Hearing aids to be billed at time of dispense.Electronically signed by ___Jaziel SmithEvette 06/23/18 13:47 EST Normal [facility] Audiology Office/Clinic Note on 06-11-2018 Audiology Office/Clinic Note HISTORY: Patient was seen today for audiologic assessment, referred by Dr. Mylene Andrew, regarding hearing concerns. He has been seen by Dr. Andrew regarding epistaxis and at last appointment on 05/28/18, visual inspection of the ears revealed cerumen in the right ear canal and concern for fluid behind the left tympanic membrane. Therefore, patient was referred for hearing evaluation. He does note gradual decline in hearing over many years, and indicates that he has become accustomed to this change in hearing. He does report needing to increase the volume on the television in order to hear clearly. No further concerns. Purpose of today?s evaluation is to assess hearing. Patient is also scheduled for follow-up with Dr. Andrew today.AUDIOMETRICS: Otoscopy revealed mostly clear canals, bilaterally. Tympanometry revealed negative pressure for the right ear and flat tympanogram for the left ear, suggesting middle ear dysfunction. Pure tone audiometry suggested mild to profound sensorineural hearing loss for the right ear and mild to profound mixed hearing loss for the left ear. Speech recognition scores were in agreement with pure tone averages, bilaterally. Word recognition scores were excellent at 92% for the right ear and good at 84% for the left ear.SUMMARY: Mild to profound sensorineural hearing loss for the right ear and mild to profound mixed hearing loss for the left ear. Tympanometry revealed negative pressure for the right ear and flat tympanogram for the left ear, suggesting middle ear dysfunction. Patient to follow up with Dr. Andrew today regarding these test results. Following any medical management, patient is a hearing aid candidate and may return for hearing aid evaluation if interested in discussing amplification options.RECOMMENDATIONS: 1. Follow up with Dr. Andrew regarding today?s test results.2. Following any medical management, return for updated hearing evaluation.3. Return for hearing aid evaluation if interested in discussing amplification options.Electronically signed by ___Jaziel SmithEvette 06/11/18 09:57 EST Normal [facility] Otolaryngology Office/Clinic Noteon 06-11-2018 Otolaryngology Office/Clinic Note Chief Complaint Patient states I have not had any nosebleeds since last visit and get results from my hearing test History of Present Illness The patient returns today. He has had no further episodes of epistaxis. His audiogram reveals a bilateral 25-50 dB sloping loss to 2000 Hz with a noise-induced drop off 200 dB at 4000 Hz. There is a conductive loss of about 15-20 dB in the left ear with a flat tympanogram on the left. Speech discrimination is 92% right and 84% left.Review of Systems General Adult ROS Fatigue: No Appetite change: No Cardiovascular EENMT Nasal congestion: No Nasal discharge: No Nosebleeds: No Gastrointestinal Genitourinary Hematologic/Lymphatic Musculoskeletal Neurological Headache: No Psychiatric Respiratory Cough: No Shortness_of_breath: No SkinPhysical Exam Vitals & Measurements BP: 135/79 General: [Alert and oriented, well nourished, no acute distress]. Eye: [PERRL, EOMI, normal conjunctiva]. HENT: [Normocephalic Ears: Canals clear. The left TM reveals scarring an obvious serous otitis with retraction. Nose: Significant septal deformity to right with concavity on the left. There is no evidence of residual bleeding site or crusting. Skin: [Skin is warm, dry and pink, no rashes or lesions]. Neurologic: [Awake, alert, and oriented X3, CN II-XII intact]. Psychiatric: [Cooperative, appropriate mood and affect]. Additional Vitals BP Position/Location: Sitting, Right arm Peripheral Pulse Rate: 79 bpmAssessment/Plan 1. Sensorineural hearing loss (SNHL), bilateral 2. Left chronic serous otitis media 3. Epistaxis Recommendation: Left myringotomy and tube. The patient does not wish to have any surgery done as he's had tubes placed in the past and didn't like the feeling of the fluid being aspirated. I've also suggested he consider hearing aid evaluation as his present hearing aid is probably 15 years old not working well.Problem List/Past Medical History Ongoing Hypertension Prediabetic nonclinical diabetes Historical Heart attackProcedure/Surgical History Stent placement.Medications amLODIPine 5 mg oral tablet, 5 mg, 1 tabs, Oral, Daily amoxicillin-clavulanate 875 mg-125 mg oral tablet, 1 tabs, Oral, q12hr aspirin 81 mg oral delayed release tablet, 81 mg, 1 tabs, Oral, Daily, Not taking atorvastatin 20 mg oral tablet, 20 mg, 1 tabs, Oral, Daily bumetanide 1 mg oral tablet Eliquis 5 mg oral tablet, 5 mg, 1 tabs, Oral, BID, Not taking fluticasone 50 mcg/inh inhalation powder, BID glipiZIDE 5 mg oral tablet, 5 mg, 1 tabs, Oral, Daily lisinopril 10 mg oral tablet, 10 mg, 1 tabs, Oral, Daily Misc Medication ondansetron 4 mg oral tablet, disintegrating, 4 mg, 1 tabs, Oral, Once, PRN spironolactone 25 mg oral tablet, 25 mg, 1 tabs, Oral, BID terazosin 5 mg oral capsule, 5 mg, 1 caps, Oral, HS (at bedtime)Allergies Coreg (unknown)Social History Alcohol Never Tobacco 10 or more cigarettes (1/2 pack or more)/day in last 30 days Use:. Cigarettes, 1 per day. Packs, 30 year(s).Family History Hypertension: Mother. Stroke: Father.Diagnostic Results No qualifying data available. No qualifying data available. No qualifying data available. No qualifying data available.Electronically signed by ___Mylene Andrew MD 06/11/18 11:02 EST Normal [facility] Otolaryngology Consultationo n 05-28-2018 Otolaryngology Consultation Chief Complaint states He had a nose bleed on Friday night and the ER packed his nose. History of Present Illness This is a pleasant 77-year-old gentleman who is here today with a history of epistaxis about 10 days ago with a rebleed and repacking approximately 5 days ago. Since a second packing he is had no further bleeding. He has a history of cardiac stent placement the last one being placed more than 2 years ago and has been on both aspirin and eliquis. He is presently been off the anticoagulation medication for the last week. No further bleeding since the pack is been in place in his left nostril. A history of 1 similar bleed in the pastReview of Systems General Adult ROS Fatigue: Yes Appetite change: No Weight gain: No Weight Loss: No Cardiovascular Chest pain/pressure: No Palpitations: No EENMT Hoarseness: No Nasal congestion: No Nasal discharge: No Nosebleeds: Yes Sore_throat: No Gastrointestinal Dysphagia: No Heartburn: No Genitourinary Decreased urine output: No Frequency: Yes Hematologic/Lymphatic Bleeding tendencies: Yes Bruising: Yes Musculoskeletal Back pain: No Joint pain: Yes Joint stiffness: Yes Neurological Abnormal Gait: Yes Headache: Yes Psychiatric Anxiety: No Depression: No Respiratory Cough: No Shortness_of_breath: No Wheezing: No Skin Itching: No Rash: NoPhysical Exam Vitals & Measurements BP: 147/101 General: [Alert and oriented, well nourished, no acute distress]. Eye: [PERRL, EOMI, normal conjunctiva]. HENT: [Normocephalic, clear tympanic membranes, normal hearing Nose: There is a Rhino Rocket pack in his left nostril. I decompressed the pack and approximately 10 minutes later removed it. The septum is intact with a large area of excoriation on the mid superior posterior septum. There was no bleeding at this time. Oral cavity: Repair with moist mucosa. Oropharynx unremarkable without postnasal drainage. Neck: [Supple, non-tender, no lymphadenopathy]. Lungs: [Clear to auscultation and percussion, non-labored respiration]. Heart: [Normal rate, regular rhythm, no murmur, gallop or edema]. Skin: [Skin is warm, dry and pink, no rashes or lesions]. Neurologic: [Awake, alert, and oriented X3, CN II-XII intact]. Psychiatric: [Cooperative, appropriate mood and affect]. Additional Vitals BP Position/Location: Sitting, Right arm Peripheral Pulse Rate: 86 bpmAssessment/Plan 1. Epistaxis 2. Coagulopathy 3. Sleep apnea Recommendation: Due to the severe excoriation his septum in the fact that he has sleep apnea and uses a CPAP device I've urged him to ensure that the desiccation on the CPAP device is working well and that he uses a saline spray regularly in his nose. Also suggested obstructing left nostril for the next few days would be of benefit. I would like him to wait 3-4 days before restarting his aspirin and if he has no bleeds after on the aspirin for a few days he can restart his eiquis.Problem List/Past Medical History Ongoing Hypertension Prediabetic nonclinical diabetes Historical Heart attackProcedure/Surgical History Stent placement.Medications Home amLODIPine 5 mg oral tablet, 5 mg, 1 tabs, Oral, Daily amoxicillin-clavulanate 875 mg-125 mg oral tablet, 1 tabs, Oral, q12hr aspirin 81 mg oral delayed release tablet, 81 mg, 1 tabs, Oral, Daily, Not taking atorvastatin 20 mg oral tablet, 20 mg, 1 tabs, Oral, Daily bumetanide 1 mg oral tablet Eliquis 5 mg oral tablet, 5 mg, 1 tabs, Oral, BID, Not taking fluticasone 50 mcg/inh inhalation powder, BID glipiZIDE 5 mg oral tablet, 5 mg, 1 tabs, Oral, Daily lisinopril 10 mg oral tablet, 10 mg, 1 tabs, Oral, Daily Misc Medication ondansetron 4 mg oral tablet, disintegrating, 4 mg, 1 tabs, Oral, Once, PRN spironolactone 25 mg oral tablet, 25 mg, 1 tabs, Oral, BID terazosin 5 mg oral capsule, 5 mg, 1 caps, Oral, HS (at bedtime) Inpatient No active inpatient medications Prescriptions No active PrescriptionsAllergies Coreg (unknown)Social History Alcohol Never Tobacco 10 or more cigarettes (1/2 pack or more)/day in last 30 days Use:. Cigarettes, 1 per day. Packs, 30 year(s).Family History Hypertension: Mother. Stroke: Father.Lab Results Microbiology No qualifying data available.Electronically signed by ___Mylene Andrew MD 05/28/18 11:44 EDTThe right ear has some cerumen and the TM is suspicious for fluid. I'll be scheduling him for a follow-up in 2 weeks to reevaluate his nose and we'll get a hearing test before his visit.Electronically signed by ___Mylene Andrew MD 05/28/18 11:46 EDT Normal [facility] Vital Signs Date Time Vital Sign Value Performing Clinician Facility 03-11-2023 13:00-0400 [facility]-11-2023 13:00-0400 Body temperature 97.7 [degF] [facility] 03-11-2023 13:00-0400 Diastolic blood pressure 64 mm[Hg[facility] 03-11-2023 13:00-0400 Heart rate 59 /min [facility] 03-11-2023 13:00-0400 Mean blood pressure 86 mm[Hg] [facility] 03-11-2023 13:00-0400 Respiratory rate 18 /min [facility] 03-11-2023 13:00-0400 SaO2% (BldA) [Mass fraction] 100 % [facility] Tabitha [facility] 03-11-2023 13:00-0400 Systolic blood pressure 129 mm[Hg] [facility]hd Tabitha [facility] 11-20-2022 15:16-0400 Body height 166.1 cm Asher Hummel MD Work Phone: [facility] 11-20-2022 15:16-0400 Body temperature 97.5 [degF] Asher Hummel MD Work Phone: [facility] 11-20-2022 15:16-0400 Body weight 95.44 kg Asher Hummel MD Work Phone: [facility] 11-20-2022 15:16-0400 Diastolic blood pressure 58 mm[Hg] Asher Hummel MD Work Phone: [facility] 11-20-2022 15:16-0400 Heart rate 59 /min Asher Hummel MD Work Phone: [facility] 11-20-2022 15:16-0400 Respiratory rate 18 /min Asher Hummel MD Work Phone: [facility] 11-20-2022 15:16-0400 SaO2% (BldA) [Mass fraction] 93 % Asher Hummel MD Work Phone: [facility] 11-20-2022 15:16-0400 Systolic blood pressure 98 mm[Hg] Asher Hummel MD Work Phone: [facility] 10-15-2022 14:14-0400 Body temperature 98.6 [degF] Elysia Esposito MD Work Phone: [facility] 10-15-2022 14:14-0400 Body weight 103.42 kg Elysia Esposito MD Work Phone: [facility] 03-21-2023 14:14-0400 Diastolic blood pressure 69 mm[Hg] Elysia Esposito MD Work Phone: [facility] 10-15-2022 14:14-0400 Heart rate 56 /min Elysia Esposito MD Work Phone: [facility] 10-15-2022 14:14-0400 Respiratory rate 19 /min Elysia Esposito MD Work Phone: [facility] 10-15-2022 14:14-0400 SaO2% (BldA) [Mass fraction] 100 % Elysia Esposito MD Work Phone: [facility] 10-15-2022 14:14-0400 Systolic blood pressure 129 mm[Hg] Elysia Esposito MD Work Phone: [facility] 09-18-2022 13:30-0500 Diastolic blood pressure 43 mm[Hg] Asher Hummel MD Work Phone: [facility] 09-18-2022 13:30-0500 Systolic blood pressure 126 mm[Hg] Asher Hummel MD Work Phone: [facility] 09-18-2022 13:28-0500 Body height 166.1 cm Asher Hummel MD Work Phone: [facility] 09-18-2022 13:28-0500 Body temperature 97.7 [degF] Asher Hummel MD Work Phone: [facility] 09-18-2022 13:28-0500 Body weight 100.25 kg Asher Hummel MD Work Phone: [facility] 09-18-2022 13:28-0500 Heart rate 71 /min Asher Hummel MD Work Phone: [facility] 09-18-2022 13:28-0500 Respiratory rate 18 /min Asher Hummel MD Work Phone: [facility] 09-18-2022 13:28-0500 SaO2% (BldA) [Mass fraction] 92 % Asher Hummel MD Work Phone: [facility] 08-28-2022 15:07-0500 Body height 166.1 cm Asher Hummel MD Work Phone: [facility] 08-28-2022 15:07-0500 Body temperature 97.3 [degF] Asher Hummel MD Work Phone: [facility] 08-28-2022 15:07-0500 Body weight 103.51 kg Asher Hummel MD Work Phone: [facility] 08-28-2022 15:07-0500 Diastolic blood pressure 62 mm[Hg] Asher Hummel MD Work Phone: [facility] 08-28-2022 15:07-0500 Heart rate 77 /min Asher Hummel MD Work Phone: [facility] 08-28-2022 15:07-0500 Respiratory rate 16 /min Asher Hummel MD Work Phone: [facility] 08-28-2022 15:07-0500 SaO2% (BldA) [Mass fraction] 92 % Asher Hummel MD Work Phone: [facility] 08-28-2022 15:07-0500 Systolic blood pressure 110 mm[Hg] Asher Hummel MD Work Phone: [facility] 08-21-2022 13:30-0500 Body height 166.1 cm Wilfred Martinez APRN.[employer] Work Phone: [facility] 08-21-2022 13:30-0500 Body temperature 97.59 [degF] Wilfred Martinez APRN.[employer] Work Phone: [facility] 08-21-2022 13:30-0500 Body weight 103.51 kg Wilfred Martinez APRN.[employer] Work Phone: [facility] 08-21-2022 13:30-0500 Diastolic blood pressure 37 mm[Hg] Wilfred Martinez APRN.[employer] Work Phone: [facility] 08-21-2022 13:30-0500 Heart rate 74 /min Wilfred Martinez APRN.[employer] Work Phone: [facility] 08-21-2022 13:30-0500 Respiratory rate 18 /min Wilfred Martinez APRN.[employer] Work Phone: [facility] 08-21-2022 13:30-0500 SaO2% (BldA) [Mass fraction] 92 % Wilfred Martinez APRN.[employer] Work Phone: [facility] 08-21-2022 13:30-0500 Systolic blood pressure 84 mm[Hg] Wilfred Martinez APRN.[employer] Work Phone: [facility] 08-14-2022 14:28-0500 Diastolic blood pressure 64 mm[Hg] Chair Nodaway Work Phone: [facility] 08-14-2022 14:28-0500 SaO2% (BldA) [Mass fraction] 97 % Chair Nodaway Work Phone: [facility] 08-14-2022 14:28-0500 Systolic blood pressure 102 mm[Hg] Chair Nodaway Work Phone: [facility] 08-14-2022 13:55-0500 Body height 166.1 cm Wilfred Martinez APRN.[employer] Work Phone: [facility] 08-14-2022 13:55-0500 Body temperature 97.3 [degF] Wilfred Martinez APRN.[employer] Work Phone: [facility] 08-14-2022 13:55-0500 Body weight 103.96 kg Wilfred Martinez APRN.[employer] Work Phone: [facility] 08-14-2022 13:55-0500 Diastolic blood pressure 41 mm[Hg] Wilfred Martinez APRN.[employer] Work Phone: [facility] 08-14-2022 13:55-0500 Heart rate 71 /min Wilfred Michelle SOURCING INTERN.[employer] Work Phone: [facility] 08-14-2022 13:55-0500 Respiratory rate 16 /min Wilfred Martinez SOURCING INTERN.[employer] Work Phone: [facility] 08-14-2022 13:55-0500 SaO2% (BldA) [Mass fraction] 90 % Wilfred Martinez SOURCING INTERN.[employer] Work Phone: [facility] 08-14-2022 13:55-0500 Systolic blood pressure 93 mm[Hg] Wilfred Martinez SOURCING INTERN.[employer] Work Phone: [facility] 08-07-2022 15:19-0500 Diastolic blood pressure 57 mm[Hg] Asher Hummel MD Work Phone: [facility] 08-07-2022 15:19-0500 Systolic blood pressure 112 mm[Hg] Asher Hummel MD Work Phone: [facility] 08-07-2022 15:14-0500 Body height 166.1 cm Asher Hummel MD Work Phone: [facility] 08-07-2022 15:14-0500 Body temperature 97.81 [degF] Asher Hummel MD Work Phone: [facility] 08-07-2022 15:14-0500 Body weight 102.97 kg Asher Hummel MD Work Phone: [facility] 08-07-2022 15:14-0500 Heart rate 71 /min Asher Hummel MD Work Phone: [facility] 08-07-2022 15:14-0500 Respiratory rate 16 /min Asher Hummel MD Work Phone: [facility] 08-07-2022 15:14-0500 SaO2% (BldA) [Mass fraction] 94 % Asher Hummel MD Work Phone: [facility] 07-30-2022 15:00-0500 Body height 166.1 cm Radha Lori PA-C Work Phone: [facility] 07-30-2022 15:00-0500 Body temperature 97.9 [degF] Radha Lori PA-C Work Phone: [facility] 07-30-2022 15:00-0500 Body weight 104.69 kg Radha Lori PA-C Work Phone: [facility] 07-30-2022 15:00-0500 Diastolic blood pressure 52 mm[Hg] Radha Lori PA-C Work Phone: [facility] 07-30-2022 15:00-0500 Heart rate 83 /min Radha Lori PA-C Work Phone: [facility] 07-30-2022 15:00-0500 Respiratory rate 18 /min Radha Lori PA-C Work Phone: [facility] 07-30-2022 15:00-0500 SaO2% (BldA) [Mass fraction] 97 % Radha Lori PA-C Work Phone: [facility] 07-30-2022 15:00-0500 Systolic blood pressure 97 mm[Hg] Radha Lori PA-C Work Phone: [facility] 07-23-2022 14:23-0500 Body height 166.1 cm Asher Hummel MD Work Phone: [facility] 07-23-2022 14:23-0500 Body temperature 97.81 [degF] Asher Hummel MD Work Phone: [facility] 07-23-2022 14:23-0500 Body weight 105.69 kg Asher Hummel MD Work Phone: [facility] 07-23-2022 14:23-0500 Diastolic blood pressure 58 mm[Hg] Asher Hummel MD Work Phone: [facility] 07-23-2022 14:23-0500 Heart rate 65 /min Asher Hummel MD Work Phone: [facility] 07-23-2022 14:23-0500 Respiratory rate 16 /min Asher Hummel MD Work Phone: [facility] 07-23-2022 14:23-0500 SaO2% (BldA) [Mass fraction] 95 % Asher Hummel MD Work Phone: [facility] 07-23-2022 14:23-0500 Systolic blood pressure 103 mm[Hg] Asher Hummel MD Work Phone: [facility] 07-16-2022 13:59-0500 Body temperature 98.01 [degF] Elysia Esposito MD Work Phone: [facility] 07-16-2022 13:59-0500 Body weight 106.87 kg Elysia Esposito MD Work Phone: [facility] 07-16-2022 13:59-0500 Diastolic blood pressure 59 mm[Hg] Elysia Esposito MD Work Phone: [facility] 07-16-2022 13:59-0500 Heart rate 50 /min Elysia Esposito MD Work Phone: [facility] 07-16-2022 13:59-0500 Respiratory rate 18 /min Elysia Esposito MD Work Phone: [facility] 07-16-2022 13:59-0500 SaO2% (BldA) [Mass fraction] 96 % Elysia Esposito MD Work Phone: [facility] 07-16-2022 13:59-0500 Systolic blood pressure 107 mm[Hg] Elysia Esposito MD Work Phone: [facility] 07-15-2022 15:02-0500 Body height 166.1 cm Chair Roman Work Phone: [facility] 07-15-2022 15:02-0500 Body weight 106.2 kg Chair Roman Work Phone: [facility] 07-15-2022 14:22-0500 Body height 166.1 cm Asher Hummel MD Work Phone: [facility] 07-15-2022 14:22-0500 Body temperature 97.59 [degF] Asher Hummel MD Work Phone: [facility] 07-15-2022 14:22-0500 Body weight 106.23 kg Asher Hummel MD Work Phone: [facility] 07-15-2022 14:22-0500 Diastolic blood pressure 43 mm[Hg] Asher Hummel MD Work Phone: [facility] 07-15-2022 14:22-0500 Heart rate 56 /min Asher Hummel MD Work Phone: [facility] 07-15-2022 14:22-0500 Respiratory rate 16 /min Asher Hummel MD Work Phone: [facility] 07-15-2022 14:22-0500 SaO2% (BldA) [Mass fraction] 93 % Asher Hummel MD Work Phone: [facility] 07-15-2022 14:22-0500 Systolic blood pressure 103 mm[Hg] Asher Hummel MD Work Phone: [facility] 07-09-2022 14:11-0500 Body temperature 97.2 [degF] Chair Nodaway Work Phone: [facility] 07-09-2022 14:11-0500 Diastolic blood pressure 71 mm[Hg] Chair Nodaway Work Phone: [facility] 07-09-2022 14:11-0500 Heart rate 68 /min Chair Nodaway Work Phone: [facility] 07-09-2022 14:11-0500 Respiratory rate 16 /min Chair Roman Work Phone: [facility] 07-09-2022 14:11-0500 Systolic blood pressure 107 mm[Hg] Chair Roman Work Phone: [facility] 07-08-2022 14:22-0500 Body height 166.1 cm Radha Lori PA-C Work Phone: [facility] 07-08-2022 14:22-0500 Body temperature 97.59 [degF] Radha Lori PA-C Work Phone: [facility] 07-08-2022 14:22-0500 Body weight 106.41 kg Radha Lori PA-C Work Phone: [facility] 07-08-2022 14:22-0500 Diastolic blood pressure 42 mm[Hg] Radha Lori PA-C Work Phone: [facility] 07-08-2022 14:22-0500 Heart rate 59 /min Radha Lori PA-C Work Phone: [facility] 07-08-2022 14:22-0500 Respiratory rate 18 /min Radha Lori PA-C Work Phone: [facility] 07-08-2022 14:22-0500 SaO2% (BldA) [Mass fraction] 97 % Radha Lori PA-C Work Phone: [facility] 07-08-2022 14:22-0500 Systolic blood pressure 99 mm[Hg] Radha Lori PA-C Work Phone: [facility] 07-02-2022 14:23-0500 Body temperature 97.9 [degF] Chair Roman Work Phone: [facility] 07-02-2022 14:23-0500 Diastolic blood pressure 62 mm[Hg] Chair Roman Work Phone: [facility] 07-02-2022 14:23-0500 Heart rate 50 /min Chair Roman Work Phone: [facility] 07-02-2022 14:23-0500 Respiratory rate 18 /min Chair Roman Work Phone: [facility] 07-02-2022 14:23-0500 SaO2% (BldA) [Mass fraction] 100 % Chair Roman Work Phone: [facility] 07-02-2022 14:23-0500 Systolic blood pressure 121 mm[Hg] Chair Roman Work Phone: [facility] 07-01-2022 14:15-0500 Body height 166.1 cm Asher Hummel MD Work Phone: [facility] 07-01-2022 14:15-0500 Body temperature 97.59 [degF] Asher Hummel MD Work Phone: [facility] 07-01-2022 14:15-0500 Body weight 105.05 kg Asher Hummel MD Work Phone: [facility] 07-01-2022 14:15-0500 Diastolic blood pressure 54 mm[Hg] Asher Hummel MD Work Phone: [facility] 07-01-2022 14:15-0500 Heart rate 77 /min Asher Hummel MD Work Phone: [facility] 07-01-2022 14:15-0500 Respiratory rate 16 /min Asher Hummel MD Work Phone: [facility] 07-01-2022 14:15-0500 SaO2% (BldA) [Mass fraction] 95 % Asher Hummel MD Work Phone: [facility] 07-01-2022 14:15-0500 Systolic blood pressure 104 mm[Hg] Asher Hummel MD Work Phone: [facility] 06-25-2022 13:35-0500 Body temperature 97.9 [degF] Chair Roman Work Phone: [facility] 06-25-2022 13:35-0500 Diastolic blood pressure 51 mm[Hg] Chair Roman Work Phone: [facility] 06-25-2022 13:35-0500 Heart rate 61 /min Chair Nodaway Work Phone: [facility] 06-25-2022 13:35-0500 Respiratory rate 18 /min Chair Nodaway Work Phone: [facility] 06-25-2022 13:35-0500 SaO2% (BldA) [Mass fraction] 99 % Chair Nodaway Work Phone: [facility] 06-25-2022 13:35-0500 Systolic blood pressure 113 mm[Hg] Chair Nodaway Work Phone: [facility] 06-24-2022 13:19-0500 Body height 166.1 cm Wilfred Martinez APRN.[employer] Work Phone: [facility] 06-24-2022 13:19-0500 Body temperature 97.39 [degF] Wilfred Martinez APRN.[employer] Work Phone: [facility] 06-24-2022 13:19-0500 Body weight 104.6 kg Wilfred Martinez APRN.[employer] Work Phone: [facility] 06-24-2022 13:19-0500 Diastolic blood pressure 52 mm[Hg] Wilfred Martinez APRN.[employer] Work Phone: [facility] 06-24-2022 13:19-0500 Heart rate 74 /min Wilfred Martinez APRN.[employer] Work Phone: [facility] 06-24-2022 13:19-0500 Respiratory rate 16 /min Wilfred Martinez APRN.[employer] Work Phone: [facility] 06-24-2022 13:19-0500 SaO2% (BldA) [Mass fraction] 95 % Wilfred Martinez APRN.[employer] Work Phone: [facility] 06-24-2022 13:19-0500 Systolic blood pressure 97 mm[Hg] Wilfred Martinez APRN.[employer] Work Phone: [facility] 06-18-2022 13:26-0500 Body temperature 97.7 [degF] Chair Roman Work Phone: [facility] 06-18-2022 13:26-0500 Diastolic blood pressure 74 mm[Hg] Chair Roman Work Phone: [facility] 06-18-2022 13:26-0500 Heart rate 65 /min Chair Roman Work Phone: [facility] 06-18-2022 13:26-0500 Respiratory rate 16 /min Chair Roman Work Phone: [facility] 06-18-2022 13:26-0500 SaO2% (BldA) [Mass fraction] 100 % Chair Roman Work Phone: [facility] 06-18-2022 13:26-0500 Systolic blood pressure 103 mm[Hg] Chair Roman Work Phone: [facility] 06-17-2022 10:04-0500 Body height 166.1 cm Asher Hummel MD Work Phone: [facility] 06-17-2022 10:04-0500 Body temperature 97.11 [degF] Asher Hummel MD Work Phone: [facility] 06-17-2022 10:04-0500 Body weight 105.23 kg Asher Hummel MD Work Phone: [facility] 06-17-2022 10:04-0500 Diastolic blood pressure 57 mm[Hg] Asher Hummel MD Work Phone: [facility] 06-17-2022 10:04-0500 Heart rate 67 /min Asher Hummel MD Work Phone: [facility] 06-17-2022 10:04-0500 Respiratory rate 18 /min Asher Hummel MD Work Phone: [facility] 06-17-2022 10:04-0500 SaO2% (BldA) [Mass fraction] 96 % Asher Hummel MD Work Phone: [facility] 06-17-2022 10:04-0500 Systolic blood pressure 108 mm[Hg] Asher Hummel MD Work Phone: [facility] 06-11-2022 14:00-0500 Body temperature 98.1 [degF] Chair Nodaway Work Phone: [facility] 06-11-2022 14:00-0500 Diastolic blood pressure 84 mm[Hg] Chair Roman Work Phone: [facility] 06-11-2022 14:00-0500 Heart rate 74 /min Chair Nodaway Work Phone: [facility] 06-11-2022 14:00-0500 Respiratory rate 18 /min Chair Nodaway Work Phone: [facility] 06-11-2022 14:00-0500 SaO2% (BldA) [Mass fraction] 95 % Chair Nodaway Work Phone: [facility] 06-11-2022 14:00-0500 Systolic blood pressure 121 mm[Hg] Chair Nodaway Work Phone: [facility] 06-10-2022 14:17-0500 Body height 166.1 cm Radha Lori PA-C Work Phone: [facility] 06-10-2022 14:17-0500 Body temperature 97.3 [degF] Radha Lori PA-C Work Phone: [facility] 06-10-2022 14:17-0500 Body weight 105.51 kg Radha Lori PA-C Work Phone: [facility] 06-10-2022 14:17-0500 Diastolic blood pressure 49 mm[Hg] Radha Lori PA-C Work Phone: [facility] 06-10-2022 14:17-0500 Heart rate 78 /min Radha Lori PA-C Work Phone: [facility] 06-10-2022 14:17-0500 Respiratory rate 20 /min Radha Harriser PA-C Work Phone: [facility] 06-10-2022 14:17-0500 SaO2% (BldA) [Mass fraction] 94 % Radha Harriser PA-C Work Phone: [facility] 06-10-2022 14:17-0500 Systolic blood pressure 111 mm[Hg] Radha Harriser PA-C Work Phone: [facility] 06-03-2022 13:15-0500 Body height 166.1 cm Asher Hummel MD Work Phone: [facility] 06-03-2022 13:15-0500 Body temperature 97.2 [degF] Asher Hummel MD Work Phone: [facility] 06-03-2022 13:15-0500 Body weight 108.68 kg Asher Hummel MD Work Phone: [facility] 06-03-2022 13:15-0500 Diastolic blood pressure 59 mm[Hg] Asher Hummel MD Work Phone: [facility] 06-03-2022 13:15-0500 Heart rate 73 /min Asher Hummel MD Work Phone: [facility] 06-03-2022 13:15-0500 Respiratory rate 20 /min Asher Hummel MD Work Phone: [facility] 06-03-2022 13:15-0500 SaO2% (BldA) [Mass fraction] 95 % Asher Hummel MD Work Phone: [facility] [facility] 13:15-0500 Systolic blood pressure 97 mm[Hg] Asher Hummel MD Work Phone: [facility] 05-28-2022 13:20-0400 Body temperature 97.39 [degF] Chair Owens Work Phone: [facility] 05-28-2022 13:20-0400 Diastolic blood pressure 56 mm[Hg] Chair Nodaway Work Phone: [facility] 05-28-2022 13:20-0400 Heart rate 60 /min Chair Roman Work Phone: [facility] 05-28-2022 13:20-0400 Respiratory rate 18 /min Chair Nodaway Work Phone: [facility] 05-28-2022 13:20-0400 SaO2% (BldA) [Mass fraction] 98 % Chair Roman Work Phone: [facility] 05-28-2022 13:20-0400 Systolic blood pressure 120 mm[Hg] Chair Nodaway Work Phone: [facility] 05-27-2022 13:34-0400 Body temperature 97.3 [degF] Chair Nodaway Work Phone: [facility] 05-27-2022 13:34-0400 Diastolic blood pressure 55 mm[Hg] Chair Nodaway Work Phone: [facility] 05-27-2022 13:34-0400 Heart rate 62 /min Chair Nodaway Work Phone: [facility] 05-27-2022 13:34-0400 Respiratory rate 18 /min Chair Nodaway Work Phone: [facility] 05-27-2022 13:34-0400 SaO2% (BldA) [Mass fraction] 98 % Chair Roman Work Phone: [facility] 05-27-2022 13:34-0400 Systolic blood pressure 120 mm[Hg] Chair Nodaway Work Phone: [facility] 05-21-2022 10:25-0400 Body temperature 98.01 [degF] Chair Nodaway Work Phone: [facility] 05-21-2022 10:25-0400 Diastolic blood pressure 57 mm[Hg] Chair Roman Work Phone: [facility] 05-21-2022 10:25-0400 Heart rate 53 /min Chair Nodaway Work Phone: [facility] 05-21-2022 10:25-0400 Respiratory rate 20 /min Chair Nodaway Work Phone: [facility] 05-21-2022 10:25-0400 SaO2% (BldA) [Mass fraction] 99 % Chair Roman Work Phone: [facility] 05-21-2022 10:25-0400 Systolic blood pressure 115 mm[Hg] Chair Roman Work Phone: [facility] 05-20-2022 13:54-0400 Body height 166.1 cm Asher Hummel MD Work Phone: [facility] 05-20-2022 13:54-0400 Body temperature 97.5 [degF] Asher Hummel MD Work Phone: [facility] 05-20-2022 13:54-0400 Body weight 108.14 kg Asher Hummel MD Work Phone: [facility] 05-20-2022 13:54-0400 Diastolic blood pressure 47 mm[Hg] Asher Hummel MD Work Phone: [facility] 05-20-2022 13:54-0400 Heart rate 74 /min Asher Hummel MD Work Phone: [facility] 05-20-2022 13:54-0400 Respiratory rate 18 /min Asher Hummel MD Work Phone: [facility] 05-20-2022 13:54-0400 SaO2% (BldA) [Mass fraction] 94 % Asher Hummel MD Work Phone: [facility] 05-20-2022 13:54-0400 Systolic blood pressure 121 mm[Hg] Asher Hummel MD Work Phone: [facility] 05-13-2022 14:48-0400 Body temperature 97.39 [degF] [facility] Work Phone: [facility] 05-13-2022 14:48-0400 Diastolic blood pressure 61 mm[Hg] [facility] [place] Work Phone: [facility] 05-13-2022 14:48-0400 Heart rate 89 /min [facility] Work Phone: [facility] 05-13-2022 14:48-0400 Respiratory rate 18 /min [facility] Work Phone: [facility] 05-13-2022 14:48-0400 SaO2% (BldA) [Mass fraction] 96 % [facility] Work Phone: [facility] 05-13-2022 14:48-0400 Systolic blood pressure 107 mm[Hg] [facility] [place] Work Phone: [facility] 05-06-2022 16:19-0400 Body height 167.1 cm Asher Hummel MD Work Phone: [facility] 05-06-2022 16:19-0400 Body temperature 97.5 [degF] Asher Hummel MD Work Phone: [facility] 05-06-2022 16:19-0400 Body weight 111.77 kg Asher Hummel MD Work Phone: [facility] 05-06-2022 16:19-0400 Diastolic blood pressure 83 mm[Hg] Asher Hummel MD Work Phone: [facility] 05-06-2022 16:19-0400 Heart rate 65 /min Asher Hummel MD Work Phone: [facility] 05-06-2022 16:19-0400 Respiratory rate 16 /min Asher Hummel MD Work Phone: [facility] 05-06-2022 16:19-0400 SaO2% (BldA) [Mass fraction] 94 % Asher Hummel MD Work Phone: [facility] 05-06-2022 16:19-0400 Systolic blood pressure 140 mm[Hg] Asher Hummel MD Work Phone: [facility] 04-29-2022 12:49-0400 Body height 167.1 cm Asher Hummel MD Work Phone: [facility] 04-29-2022 12:49-0400 Body temperature 97.81 [degF] Asher Hummel MD Work Phone: [facility] 04-29-2022 12:49-0400 Body weight 108.95 kg Asher Hummel MD Work Phone: [facility] 04-29-2022 12:49-0400 Diastolic blood pressure 64 mm[Hg] Asher Hummel MD Work Phone: [facility] 04-29-2022 12:49-0400 Heart rate 55 /min Asher Hummel MD Work Phone: [facility] 04-29-2022 12:49-0400 Respiratory rate 20 /min Asher Hummel MD Work Phone: [facility] 04-29-2022 12:49-0400 SaO2% (BldA) [Mass fraction] 92 % Asher Hummel MD Work Phone: [facility] 04-29-2022 12:49-0400 Systolic blood pressure 119 mm[Hg] Asher Hummel MD Work Phone: [facility] 04-25-2022 07:52-0400 Body height 167.1 cm Asher Hummel MD Work Phone: [facility] 04-25-2022 07:52-0400 Body temperature 97.2 [degF] Ashre Hummel MD Work Phone: [facility] 04-25-2022 07:52-0400 Body weight 109.59 kg Asher Hummel MD Work Phone: [facility] 04-25-2022 07:52-0400 Diastolic blood pressure 59 mm[Hg] Asher Hummel MD Work Phone: [facility] 04-25-2022 07:52-0400 Heart rate 54 /min Asher Hummel MD Work Phone: [facility] 04-25-2022 07:52-0400 Respiratory rate 18 /min Asher Hummel MD Work Phone: [facility] 04-25-2022 07:52-0400 SaO2% (BldA) [Mass fraction] 94 % Asher Hummel MD Work Phone: [facility] 04-25-2022 07:52-0400 Systolic blood pressure 131 mm[Hg] Asher Hummel MD Work Phone: [facility] 04-18-2022 13:54-0400 Body height 167.1 cm Elysia Esposito MD Work Phone: [facility] 04-18-2022 13:54-0400 Body temperature 98.2 [degF] Elysia Esposito MD Work Phone: [facility] 04-18-2022 13:54-0400 Body weight 109.63 kg Elysia Esposito MD Work Phone: [facility] 04-18-2022 13:54-0400 Diastolic blood pressure 50 mm[Hg] Elysia Esposito MD Work Phone: [facility] 04-18-2022 13:54-0400 Heart rate 63 /min Elysia Esposito MD Work Phone: [facility] 04-18-2022 13:54-0400 Respiratory rate 22 /min Elysia Esposito MD Work Phone: [facility] 04-18-2022 13:54-0400 SaO2% (BldA) [Mass fraction] 98 % Elysia Esposito MD Work Phone: [facility] 04-18-2022 13:54-0400 Systolic blood pressure 135 mm[Hg] Elysia Esposito MD Work Phone: [facility] 04-08-2022 14:25-0400 Body height 165.2 cm Ashre Hummel MD Work Phone: [facility] 04-08-2022 14:25-0400 Body temperature 97.3 [degF] Asher Hummel MD Work Phone: [facility] 04-08-2022 14:25-0400 Body weight 111.4 kg Asher Hummel MD Work Phone: [facility] 04-08-2022 14:25-0400 Diastolic blood pressure 62 mm[Hg] Asher Hummel MD Work Phone: [facility] 04-08-2022 14:25-0400 Heart rate 65 /min Asher Hummel MD Work Phone: [facility] 04-08-2022 14:25-0400 Respiratory rate 16 /min Asher Hummel MD Work Phone: [facility] 04-08-2022 14:25-0400 SaO2% (BldA) [Mass fraction] 94 % Asher Hummel MD Work Phone: [facility] 04-08-2022 14:25-0400 Systolic blood pressure 99 mm[Hg] Asher Hummel MD Work Phone: [facility] 03-25-2022 14:20-0400 Body temperature 98.1 [degF] [facility] Work Phone: [facility] 03-25-2022 14:20-0400 Diastolic blood pressure 44 mm[Hg] [facility] Work Phone: [facility] 03-25-2022 14:20-0400 Heart rate 66 /min [facility] Work Phone: [facility] 03-25-2022 14:20-0400 Respiratory rate 18 /min [facility] Work Phone: [facility] 03-25-2022 14:20-0400 SaO2% (BldA) [Mass fraction] 96 % [facility] Work Phone: [facility] 03-25-2022 14:20-0400 Systolic blood pressure 109 mm[Hg] [facility] Work Phone: [facility] 03-15-2022 13:58-0400 Heart rate 58 /min Chair Nod[place] Work Phone: [facility] 03-15-2022 13:21-0400 Body temperature 97.81 [degF] Chair Nodaway Work Phone: [facility] 03-15-2022 13:21-0400 Diastolic blood pressure 49 mm[Hg] Chair Nodaway Work Phone: [facility] 03-15-2022 13:21-0400 Respiratory rate 18 /min Chair N[place] Work Phone: [facility] 03-15-2022 13:21-0400 SaO2% (BldA) [Mass fraction] 97 % Chair Nod[place] Work Phone: [facility] 03-15-2022 13:21-0400 Systolic blood pressure 111 mm[Hg] Chair Nodaway Work Phone: [facility] 03-14-2022 14:46-0400 Body temperature 97.81 [degF] Chair Nodaway Work Phone: [facility] 03-14-2022 14:46-0400 Diastolic blood pressure 63 mm[Hg] Chair Nodaway Work Phone: [facility] 03-14-2022 14:46-0400 Heart rate 64 /min Chair Nodaway Work Phone: [facility] 03-14-2022 14:46-0400 Respiratory rate 18 /min Chair N[place]away Work Phone: [facility] 03-14-2022 14:46-0400 SaO2% (BldA) [Mass fraction] 96 % Chair Nodaway Work Phone: [facility] 03-14-2022 14:46-0400 Systolic blood pressure 107 mm[Hg] Chair Nodaway Work Phone: [facility] 03-13-2022 14:41-0400 Body temperature 98.1 [degF] Chair Roman Work Phone: [facility] 03-13-2022 14:41-0400 Diastolic blood pressure 54 mm[Hg] Chair Nodaway Work Phone: [facility] 03-13-2022 14:41-0400 Heart rate 60 /min Chair Roman Work Phone: [facility] 03-13-2022 14:41-0400 Respiratory rate 20 /min Chair Nodaway Work Phone: [facility] 03-13-2022 14:41-0400 SaO2% (BldA) [Mass fraction] 97 % Chair Nodaway Work Phone: [facility] 03-13-2022 14:41-0400 Systolic blood pressure 116 mm[Hg] Chair Nodaway Work Phone: [facility] 03-11-2022 14:10-0400 Body height 165.2 cm Asher Hummel MD Work Phone: [facility] 03-11-2022 14:10-0400 Body temperature 97.3 [degF] Asher Hummel MD Work Phone: [facility] 03-11-2022 14:10-0400 Body weight 112.58 kg Asher Hummel MD Work Phone: [facility] 03-11-2022 14:10-0400 Diastolic blood pressure 38 mm[Hg] Asher Hummel MD Work Phone: [facility] 03-11-2022 14:10-0400 Heart rate 60 /min Asher Hummel MD Work Phone: [facility] 03-11-2022 14:10-0400 Respiratory rate 18 /min Asher Hummel MD Work Phone: [facility] 03-11-2022 14:10-0400 SaO2% (BldA) [Mass fraction] 98 % Asher Hummel MD Work Phone: [facility] 03-11-2022 14:10-0400 Systolic blood pressure 106 mm[Hg] Asher Hummel MD Work Phone: [facility] 02-25-2022 14:50-0400 Body temperature 98.1 [degF] [facility] Work Phone: [facility] 02-25-2022 14:50-0400 Diastolic blood pressure 56 mm[Hg] [facility] Work Phone: [facility] 02-25-2022 14:50-0400 Heart rate 59 /min [facility] [place] Work Phone: [facility] 02-25-2022 14:50-0400 Respiratory rate 18 /min [facility] Work Phone: [facility] 02-25-2022 14:50-0400 SaO2% (BldA) [Mass fraction] 100 % [facility] Work Phone: [facility] 02-25-2022 14:50-0400 Systolic blood pressure 110 mm[Hg] [facility] Work Phone: [facility] 02-15-2022 13:15-0400 Body temperature 97.7 [degF] Chair Roman Work Phone: [facility] 02-15-2022 13:15-0400 Diastolic blood pressure 63 mm[Hg] Chair Roman Work Phone: [facility] 02-15-2022 13:15-0400 Heart rate 74 /min Chair N[place] Work Phone: [facility] 02-15-2022 13:15-0400 Respiratory rate 18 /min Chair Nodaway Work Phone: [facility] 02-15-2022 13:15-0400 SaO2% (BldA) [Mass fraction] 99 % Chair Nodaway Work Phone: [facility] 02-15-2022 13:15-0400 Systolic blood pressure 109 mm[Hg] Chair Nodaway Work Phone: [facility] 02-14-2022 13:35-0400 Body temperature 97.59 [degF] Chair Roman Work Phone: [facility] 02-14-2022 13:35-0400 Diastolic blood pressure 79 mm[Hg] Chair Roman Work Phone: [facility] 02-14-2022 13:35-0400 Heart rate 65 /min Chair Nodaway Work Phone: [facility] 02-14-2022 13:35-0400 Respiratory rate 18 /min Chair Roman Work Phone: [facility] 02-14-2022 13:35-0400 SaO2% (BldA) [Mass fraction] 99 % Chair N[place] Work Phone: [facility] 02-14-2022 13:35-0400 Systolic blood pressure 118 mm[Hg] Chair Roman Work Phone: [facility] 02-13-2022 13:10-0400 Body temperature 98.2 [degF] Chair Roman Work Phone: [facility] 02-13-2022 13:10-0400 Diastolic blood pressure 45 mm[Hg] Chair Roman Work Phone: [facility] 02-13-2022 13:10-0400 Heart rate 53 /min Chair N[place] Work Phone: [facility] 07-20-2022 13:10-0400 Respiratory rate 18 /min Chair N[place] Work Phone: [facility] 02-13-2022 13:10-0400 SaO2% (BldA) [Mass fraction] 99 % Chair N[place] Work Phone: [facility] 02-13-2022 13:10-0400 Systolic blood pressure 101 mm[Hg] Chair Nodaway Work Phone: [facility] 02-12-2022 13:10-0400 Diastolic blood pressure 52 mm[Hg] Chair Roman Work Phone: [facility] 02-12-2022 13:10-0400 Heart rate 68 /min Chair N[place]away Work Phone: [facility] 02-12-2022 13:10-0400 Respiratory rate 18 /min Chair N[place]away Work Phone: [facility] 02-12-2022 13:10-0400 SaO2% (BldA) [Mass fraction] 98 % Chair N[place] Work Phone: [facility] 02-12-2022 13:10-0400 Systolic blood pressure 98 mm[Hg] Chair Nodaway Work Phone: [facility] 02-11-2022 14:35-0400 Body height 165.2 cm Radha Lori PA-C Work Phone: [facility] 02-11-2022 14:35-0400 Body temperature 97 [degF] Radha Lori PA-C Work Phone: [facility] 02-11-2022 14:35-0400 Body weight 110.95 kg Radha Lori PA-C Work Phone: [facility] 02-11-2022 14:35-0400 Diastolic blood pressure 42 mm[Hg] Radha Lori PA-C Work Phone: [facility] 02-11-2022 14:35-0400 Heart rate 81 /min Radha Lori PA-C Work Phone: [facility] 02-11-2022 14:35-0400 Respiratory rate 16 /min Radha Harriser PA-C Work Phone: [facility] 02-11-2022 14:35-0400 SaO2% (BldA) [Mass fraction] 98 % Radha Harriser PA-C Work Phone: [facility] 02-11-2022 14:35-0400 Systolic blood pressure 104 mm[Hg] Radha Harriser PA-C Work Phone: [facility] 02-04-2022 13:25-0400 Body temperature 98.1 [degF] [facility] Work Phone: [facility] 02-04-2022 13:25-0400 Diastolic blood pressure 63 mm[Hg] [facility] Work Phone: [facility] 02-04-2022 13:25-0400 Heart rate 88 /min [facility] Work Phone: [facility] 02-04-2022 13:25-0400 Respiratory rate 20 /min [facility] Work Phone: [facility] 02-04-2022 13:25-0400 SaO2% (BldA) [Mass fraction] 99 % [facility] Work Phone: [facility] 02-04-2022 13:25-0400 Systolic blood pressure 142 mm[Hg] [facility] Work Phone: [facility] 01-30-2022 14:00-0400 Body temperature 98.2 [degF] [facility] Work Phone: [facility] 01-30-2022 14:00-0400 Diastolic blood pressure 54 mm[Hg] [facility] Work Phone: [facility] 01-30-2022 14:00-0400 Heart rate 70 /min [facility] Work Phone: [facility] 01-30-2022 14:00-0400 Respiratory rate 18 /min [facility] Work Phone: [facility] 01-30-2022 14:00-0400 SaO2% (BldA) [Mass fraction] 98 % [facility] Work Phone: [facility] 01-30-2022 14:00-0400 Systolic blood pressure 107 mm[Hg] [facility] Work Phone: [facility] 01-21-2022 11:18-0400 Body temperature 97.81 [degF] Chair [place] Work Phone: [facility] 01-21-2022 11:18-0400 Diastolic blood pressure 52 mm[Hg] Chair [place] Work Phone: [facility] 01-21-2022 11:18-0400 Heart rate 78 /min Chair [place] Work Phone: [facility] 01-21-2022 11:18-0400 Respiratory rate 16 /min Chair [place] Work Phone: [facility] 01-21-2022 11:18-0400 SaO2% (BldA) [Mass fraction] 98 % Chair [place] Work Phone: [facility] 01-21-2022 11:18-0400 Systolic blood pressure 98 mm[Hg] Chair Roman Work Phone: [facility] 01-18-2022 13:20-0400 Body temperature 96.8 [degF] Chair Roman Work Phone: [facility] 01-18-2022 13:20-0400 Diastolic blood pressure 50 mm[Hg] Chair [place] Work Phone: [facility] 01-18-2022 13:20-0400 Heart rate 58 /min Chair [place] Work Phone: [facility] 01-18-2022 13:20-0400 Respiratory rate 18 /min Chair [place] Work Phone: [facility] 01-18-2022 13:20-0400 SaO2% (BldA) [Mass fraction] 99 % Chair [place] Work Phone: [facility] 01-18-2022 13:20-0400 Systolic blood pressure 116 mm[Hg] Chair [place] Work Phone: [facility] 01-17-2022 13:49-0400 Body temperature 97.3 [degF] Chair Roman Work Phone: [facility] 01-17-2022 13:49-0400 Diastolic blood pressure 68 mm[Hg] Chair [place] Work Phone: [facility] 01-17-2022 13:49-0400 Heart rate 56 /min Chair [place] Work Phone: [facility] 01-17-2022 13:49-0400 Respiratory rate 18 /min Chair Roman Work Phone: [facility] 01-17-2022 13:49-0400 SaO2% (BldA) [Mass fraction] 99 % Chair Roman Work Phone: [facility] 01-17-2022 13:49-0400 Systolic blood pressure 112 mm[Hg] Chair Roman Work Phone: [facility] 01-16-2022 13:06-0400 Body temperature 96.69 [degF] Chair Roman Work Phone: [facility] 01-16-2022 13:06-0400 Diastolic blood pressure 49 mm[Hg] Chair N[place] Work Phone: [facility] 01-16-2022 13:06-0400 Heart rate 58 /min Chair [place] Work Phone: [facility] 01-16-2022 13:06-0400 Respiratory rate 18 /min Chair [place] Work Phone: [facility] 01-16-2022 13:06-0400 SaO2% (BldA) [Mass fraction] 98 % Chair [place] Work Phone: [facility] 01-16-2022 13:06-0400 Systolic blood pressure 109 mm[Hg] Chair Roman Work Phone: [facility] 01-15-2022 14:00-0400 Body temperature 98.29 [degF] Chair [place] Work Phone: [facility] 01-15-2022 14:00-0400 Diastolic blood pressure 57 mm[Hg] Chair Roman Work Phone: [facility] 01-15-2022 14:00-0400 Heart rate 72 /min Chair N[place] Work Phone: [facility] 01-15-2022 14:00-0400 Respiratory rate 18 /min Chair Roman Work Phone: [facility] 01-15-2022 14:00-0400 SaO2% (BldA) [Mass fraction] 98 % Chair [place] Work Phone: [facility] 01-15-2022 14:00-0400 Systolic blood pressure 101 mm[Hg] Chair Roman Work Phone: [facility] 01-14-2022 13:24-0400 Body height 165.2 cm Asher Hummel MD Work Phone: [facility] 01-14-2022 13:24-0400 Body temperature 97.2 [degF] Asher Hummel MD Work Phone: [facility] 01-14-2022 13:24-0400 Body weight 108.14 kg Asher Hummel MD Work Phone: [facility] 01-14-2022 13:24-0400 Diastolic blood pressure 73 mm[Hg] Asher Hummel MD Work Phone: [facility] 01-14-2022 13:24-0400 Heart rate 64 /min Asher Hummel MD Work Phone: [facility] 01-14-2022 13:24-0400 Respiratory rate 16 /min Asher Hummel MD Work Phone: [facility] 01-14-2022 13:24-0400 SaO2% (BldA) [Mass fraction] 98 % Asher Hummel MD Work Phone: [facility] 01-14-2022 13:24-0400 Systolic blood pressure 126 mm[Hg] Asher Hummel MD Work Phone: [facility] 01-07-2022 14:00-0400 Body height 165.2 cm Ma Sand Work Phone: [facility] 01-07-2022 14:00-0400 Body temperature 97.59 [degF] Ma Sand Work Phone: [facility] 01-07-2022 14:00-0400 Body weight 101.15 kg Ma Sand Work Phone: [facility] 01-07-2022 14:00-0400 Diastolic blood pressure 56 mm[Hg] Ma Sand Work Phone: [facility] 01-07-2022 14:00-0400 Heart rate 70 /min Ma Sand Work Phone: [facility] 01-07-2022 14:00-0400 Respiratory rate 16 /min Ma Sand Work Phone: [facility] 01-07-2022 14:00-0400 SaO2% (BldA) [Mass fraction] 92 % Ma Sand Work Phone: [facility] 01-07-2022 14:00-0400 Systolic blood pressure 101 mm[Hg] Ma Sand Work Phone: [facility] 12-21-2021 13:24-0400 Body temperature 97.59 [degF] Chair [place] Work Phone: [facility] 12-21-2021 13:24-0400 Diastolic blood pressure 46 mm[Hg] Chair [place] Work Phone: [facility] 12-21-2021 13:24-0400 Heart rate 54 /min Chair Roman Work Phone: [facility] 12-21-2021 13:24-0400 Respiratory rate 18 /min Chair Roman Work Phone: [facility] 12-21-2021 13:24-0400 SaO2% (BldA) [Mass fraction] 97 % Chair Roman Work Phone: [facility] 12-21-2021 13:24-0400 Systolic blood pressure 127 mm[Hg] Chair [place] Work Phone: [facility] 12-20-2021 13:35-0400 Body temperature 97.7 [degF] Chair Orman Work Phone: [facility] 12-20-2021 13:35-0400 Diastolic blood pressure 55 mm[Hg] Chair [place] Work Phone: [facility] 12-20-2021 13:35-0400 Heart rate 57 /min Chair [place] Work Phone: [facility] 12-20-2021 13:35-0400 Respiratory rate 16 /min Chair Roman Work Phone: [facility] 12-20-2021 13:35-0400 SaO2% (BldA) [Mass fraction] 99 % Chair [place] Work Phone: [facility] 12-20-2021 13:35-0400 Systolic blood pressure 107 mm[Hg] Chair [place] Work Phone: [facility] 12-19-2021 13:32-0400 Body temperature 97.7 [degF] Chair Roman Work Phone: [facility] 12-19-2021 13:32-0400 Diastolic blood pressure 48 mm[Hg] Chair [place] Work Phone: [facility] 12-19-2021 13:32-0400 Heart rate 53 /min Chair [place] Work Phone: [facility] 12-19-2021 13:32-0400 Respiratory rate 18 /min Chair Roman Work Phone: [facility] 12-19-2021 13:32-0400 SaO2% (BldA) [Mass fraction] 97 % Chair Roman Work Phone: [facility] 12-19-2021 13:32-0400 Systolic blood pressure 113 mm[Hg] Chair Roman Work Phone: [facility] 12-17-2021 13:11-0400 Body height 165.2 cm Asher Hummel MD Work Phone: [facility] 12-17-2021 13:11-0400 Body temperature 97.3 [degF] Asher Hummel MD Work Phone: [facility] 12-17-2021 13:11-0400 Body weight 101.24 kg Asher Hummel MD Work Phone: [facility] 12-17-2021 13:11-0400 Diastolic blood pressure 53 mm[Hg] Asher Hummel MD Work Phone: [facility] 12-17-2021 13:11-0400 Heart rate 59 /min Asher Hummel MD Work Phone: [facility] 12-17-2021 13:11-0400 Respiratory rate 16 /min Asher Hummel MD Work Phone: [facility] 12-17-2021 13:11-0400 SaO2% (BldA) [Mass fraction] 88 % Asher Hummel MD Work Phone: [facility] 12-17-2021 13:11-0400 Systolic blood pressure 114 mm[Hg] Asher Hummel MD Work Phone: [facility] 11-29-2021 08:49-0400 Body height 165.2 cm Asher Hummel MD Work Phone: [facility] 11-29-2021 08:49-0400 Body temperature 97.81 [degF] Asher Hummel MD Work Phone: [facility] 11-29-2021 08:49-0400 Diastolic blood pressure 51 mm[Hg] Asher Hummel MD Work Phone: [facility] 11-29-2021 08:49-0400 Heart rate 58 /min Asher Hummel MD Work Phone: [facility] 11-29-2021 08:49-0400 Respiratory rate 16 /min Asher Hummel MD Work Phone: [facility] 11-29-2021 08:49-0400 SaO2% (BldA) [Mass fraction] 99 % Asher Hummel MD Work Phone: [facility] 11-29-2021 08:49-0400 Systolic blood pressure 134 mm[Hg] Asher Hummel MD Work Phone: [facility] 11-08-2021 16:00-0400 Body temperature 98.01 [degF] [facility] Work Phone: [facility] 11-08-2021 16:00-0400 Body weight 109.77 kg [facility] Work Phone: [facility] 11-08-2021 16:00-0400 Diastolic blood pressure 51 mm[Hg] [facility] [place] Work Phone: [facility] 11-08-2021 16:00-0400 Heart rate 80 /min [facility] Work Phone: [facility] 11-08-2021 16:00-0400 Respiratory rate 16 /min [facility] Work Phone: [facility] 11-08-2021 16:00-0400 SaO2% (BldA) [Mass fraction] 92 % [facility] [place] Work Phone: [facility] 11-08-2021 16:00-0400 Systolic blood pressure 123 mm[Hg] [facility] [place] Work Phone: [facility] 11-01-2021 14:03-0400 Body temperature 98.2 [degF] Chair Roman Work Phone: [facility] 11-01-2021 14:03-0400 Diastolic blood pressure 59 mm[Hg] Chair [place] Work Phone: [facility] 11-01-2021 14:03-0400 Heart rate 78 /min Chair [place] Work Phone: [facility] 11-01-2021 14:03-0400 Respiratory rate 18 /min Chair Roman Work Phone: [facility] 11-01-2021 14:03-0400 SaO2% (BldA) [Mass fraction] 98 % Chair [place] Work Phone: [facility] 11-01-2021 14:03-0400 Systolic blood pressure 109 mm[Hg] Chair [place] Work Phone: [facility] 10-30-2021 13:55-0400 Body temperature 97.7 [degF] Chair Nodaway Work Phone: [facility] 10-30-2021 13:55-0400 Diastolic blood pressure 53 mm[Hg] Chair Nodaway Work Phone: [facility] 10-30-2021 13:55-0400 Heart rate 82 /min Chair Nodaway Work Phone: [facility] 10-30-2021 13:55-0400 Respiratory rate 18 /min Chair Roman Work Phone: [facility] 10-30-2021 13:55-0400 SaO2% (BldA) [Mass fraction] 97 % Chair Nodaway Work Phone: [facility] 10-30-2021 13:55-0400 Systolic blood pressure 107 mm[Hg] Chair Nodaway Work Phone: [facility] 10-29-2021 14:27-0400 Body temperature 97.81 [degF] Chair Roman Work Phone: [facility] 10-29-2021 14:27-0400 Body weight 109.41 kg Chair Nodaway Work Phone: [facility] 10-29-2021 14:27-0400 Diastolic blood pressure 40 mm[Hg] Chair Roman Work Phone: [facility] 10-29-2021 14:27-0400 Heart rate 72 /min Chair Roman Work Phone: [facility] 10-29-2021 14:27-0400 Respiratory rate 18 /min Chair Nodaway Work Phone: [facility] 10-29-2021 14:27-0400 SaO2% (BldA) [Mass fraction] 98 % Chair Roman Work Phone: [facility] 10-29-2021 14:27-0400 Systolic blood pressure 102 mm[Hg] Chair Nodaway Work Phone: [facility] 10-25-2021 14:02-0400 Diastolic blood pressure 48 mm[Hg] Wilfred Martinez APRN.FUNCTIONAL TESTER TYPEWRITERS Work Phone: [facility] 10-25-2021 14:02-0400 Heart rate 80 /min Wilfred Martinez APRN.FUNCTIONAL TESTER TYPEWRITERS Work Phone: [facility] 10-25-2021 14:02-0400 Systolic blood pressure 140 mm[Hg] Wilfred Martinez APRN.FUNCTIONAL TESTER TYPEWRITERS Work Phone: [facility] 10-25-2021 14:00-0400 Body height 165.2 cm Wilfred Martinez APRN.FUNCTIONAL TESTER TYPEWRITERS Work Phone: [facility] 10-25-2021 14:00-0400 Body temperature 97.5 [degF] Wilfred Martinez APRN.FUNCTIONAL TESTER TYPEWRITERS Work Phone: [facility] 10-25-2021 14:00-0400 Body weight 108.77 kg Wilfred Michelle SOURCING INTERN.FUNCTIONAL TESTER TYPEWRITERS Work Phone: [facility] 10-25-2021 14:00-0400 Respiratory rate 16 /min Wilfred Martinez SOURCING INTERN.FUNCTIONAL TESTER TYPEWRITERS Work Phone: [facility] 10-25-2021 14:00-0400 SaO2% (BldA) [Mass fraction] 97 % Wilfred Martinez SOURCING INTERN.FUNCTIONAL TESTER TYPEWRITERS Work Phone: [facility] 09-05-2021 15:03-0500 Body temperature 98.71 [degF] Chair Nodaway Work Phone: [facility] 09-05-2021 15:03-0500 Diastolic blood pressure 69 mm[Hg] Chair Nodaway Work Phone: [facility] 09-05-2021 15:03-0500 Heart rate 70 /min Chair Roman Work Phone: [facility] 09-05-2021 15:03-0500 Respiratory rate 20 /min Chair Roman Work Phone: [facility] 09-05-2021 15:03-0500 SaO2% (BldA) [Mass fraction] 98 % Chair Roman Work Phone: [facility] 09-05-2021 15:03-0500 Systolic blood pressure 118 mm[Hg] Chair Roman Work Phone: [facility] Encounters Encounter Date Encounter Type Care Provider Facility Start: 04-05-2024 ambulatory Álvaro Barton Facility : [facility] Start: 10-13-2023 ambulatory Álvaro Barton Facility : [facility] [place] Start: 07-15-2023 End: 07-16-2023 ambulatory Álvaro Barton Facility:[facility] [place] Start: 07-11-2023 ambulatory Álvaro Barton Facility :CD:[id number] Start: 04-16-2023 End: 04-17-2023 ambulatory Álvaro Barton Facility: [facility] [place] Start: 03-17-2023 ambulatory Álvaro Barton Facility : [facility] Start: 03-14-2023 End: 03-14-2023 ambulatory [facility] Start: 03-11-2023 End: 03-12-2023 ambulatory Mhd Lyle Lu Facility:[facility] Start: 03-11-2023 End: 03-12-2023 ambulatory Mhd Lyle Lu Facility:[facility] Start: 03-11-2023 End: 03-11-2023 Patient encounter procedure d Lyle Lu [facility] Start: 03-10-2023 End: 03-11-2023 ambulatory Álvaro Barton Facility: [facility] [place] Start: 02-13-2023 End: 02-14-2023 ambulatory Álvaro Barton Facility: [facility] [place] Start: 01-10-2023 End: 01-11-2023 ambulatory EDUCATION TEACHER Malinda L Earl Facility:[facility] Start: 01-10-2023 End: 01-11-2023 ambulatory Álvaro Barton Facility:[facility] Start: 01-10-2023 End: 01-10-2023 Lab Drop off Malinda L Earl [facility] Start: 01-10-2023 End: 01-10-2023 Lab Drop off Álvaro Barton [facility] Start: 01-06-2023 End: 01-07-2023 ambulatory Álvaro Barton Facility:[facility] Start: 01-06-2023 End: 01-07-2023 ambulatory Álvaro Barton Facility: [facility] [place] [facility] Start: 12-30-2022 Refill Oumou Wade MD Work Phone: Otolaryngology Comment on above: Refill Request Start: 12-10-2022 End: 12-25-[address] FLASH PEARL . Facility: Start: 12-04-2022 End: 12-24-[address] FLASH PEARL . Facility:[facility] Start: 12-03-2022 End: 12-04-[address] FLASH PEARL . Facility: Start: 11-20-2022 End: 11-20-2022 ambulatory ASHER HUMMEL Facility:[facility] Start: 11-20-2022 End: 11-20-2022 Office outpatient visit 25 minutes Asher Hummel MD Work Phone: Hematology/Oncology Comment on above: MDS (myelodysplastic syndrome) (HCC) (Primary Dx); Anemia of chronic renal failure, stage 4 (severe) (HCC); Type 2 diabetes mellitus with stage 3 chronic kidney disease, with long-term current use of insulin, unspecified whether stage 3a or 3b CKD (HCC) Start: 11-20-2022 End: 11-21-2022 ambulatory FLASH PEARL Facility:[facility] [place] Start: 11-20-2022 Telephone encounter Angle parmar RN Work Phone: Hematology/Oncology Comment on above: Care Coordination (H ospice/Treatment Update) Start: 11-19-2022 Telephone encounter Angle parmar RN Work Phone: Hematology/Oncology Comment on above: Care Coordination (P t Update) Start: 11-14-2022 End: 11-17-2022 Evaluation and management of inpatient MARICRUZ BOGGS . Facility: Start: 11-13-2022 End: 11-14-2022 ambulatory EDUCATION TEACHER [facility] Start: 11-12-2022 End: 11-13-2022 ambulatory Jasper MARIE Facility: [place] Start: 11-06-2022 End: 11-13-[address] DOCTOR TOM Facility: Start: 11-06-2022 Patient encounter procedure [facility] Provider [facility] Start: 11-06-2022 Telephone encounter Asher frances MD Work Phone: [facility] Comment on above: Results Care Coordination (C BC Results) Start: 10-30-2022 End: 10-30-2022 ambulatory Chair Billy Owens Work Phone: Hematology/Oncology Comment on above: Anemia of chronic re nal failure, stage 4 (severe) (HCC) (Primary Dx); 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 loss; MDS (myelodysplastic syndrome) (HCC) Start: 10-25-2022 Patient encounter procedure [facility] Provider [facility] Start: 10-25-2022 End: 10-25-[address] DOCTOR TOM Facility: Start: 10-24-2022 Telephone encounter Angle parmar RN Work Phone: Hematology/Oncology Comment on above: Care Coordination (C BC Results; Transfusion) Start: 10-23-2022 End: 10-23-2022 ambulatory FLASH PEARL Facility:[facility] Start: 10-23-2022 End: 10-23-2022 ambulatory Lab/[place] Work Phone: Hematology/Oncology Comment on above: MDS (myelodysplastic syndrome) (HCC) (Primary Dx) Start: 10-17-2022 Patient encounter procedure [facility] Provider [facility] Start: 10-17-2022 Telephone encounter Angle parmar RN Work Phone: Hematology/Oncology Comment on above: Care Coordination (T ransfusion Orders) Start: 10-16-2022 End: 10-16-2022 ambulatory FLASH PEARL Facility:[facility] Start: 10-16-2022 End: 10-16-2022 ambulatory [facility] Work Phone: Hematology/Oncology Comment on above: MDS (myelodysplastic syndrome) (HCC) (Primary Dx); Anemia of chronic renal failure, stage 4 (severe) (HCC) Start: 10-16-2022 Patient encounter procedure [facility] Provider [facility] Start: 10-15-2022 End: 10-15-2022 ambulatory FLASH PEARL Facility:[facility] Start: 10-15-2022 End: 10-15-2022 ambulatory Elysia Esposito MD Work Phone: Hematology/Oncology Comment on above: MDS (myelodysplastic syndrome) (HCC) (Primary Dx); Anemia, unspecified type Start: 10-15-2022 End: 10-15-2022 Patient encounter procedure Elysia Esposito MD Work Phone: [facility] Start: 10-09-2022 End: 10-09-2022 ambulatory ASHER HUMMEL Facility:[facility] Start: 10-09-2022 End: 10-09-2022 ambulatory Chair 19 Roman Work Phone: Hematology/Oncology Comment on above: MDS (myelodysplastic syndrome) (HCC) (Primary Dx); Anemia of chronic renal failure, stage 4 (severe) (HCC); 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 loss Start: 10-03-2022 Patient encounter procedure [facility] Provider [facility] Start: 10-02-2022 End: 10-02-2022 ambulatory FLASH PEARL Facility:[facility] Start: 10-02-2022 Telephone encounter Asher frances MD Work Phone: [facility] Comment on above: Future Appointment Start: 09-25-2022 End: 10-17-[address] DOCTOR TAYLOR Facility: Start: 09-25-2022 End: 09-25-2022 ambulatory FLASH PEARL Facility:[facility] Start: 09-25-2022 Telephone encounter Angle parmar RN Work Phone: Hematology/Oncology Comment on above: Care Coordination (C BC Results; Transfusion) Start: 09-20-2022 [facility]ulatory [facility] Start: 09-18-2022 End: 09-18-2022 ambulatory Chair 17 Roman Work Phone: Hematology/Oncology Comment on above: Anemia of chronic re nal failure, stage 4 (severe) (HCC) (Primary Dx); 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 loss; MDS (myelodysplastic syndrome) (HCC) Start: 09-18-2022 End: 09-18-2022 Office outpatient visit 25 minutes Asher Hummel MD Work Phone: Hematology/Oncology Comment on above: MDS (myelodysplastic syndrome) (HCC) (Primary Dx); 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 loss; Anemia of chronic renal failure, stage 4 (severe) (HCC) Start: 09-16-2022 End: 09-16-2022 ambulatory [facility] Start: 09-12-2022 Patient encounter procedure [facility] Provider [facility] Start: 09-11-2022 End: 09-11-2022 ambulatory FLASH PEARL Facility:[facility] Start: 09-11-2022 Telephone encounter Angle parmar RN Work Phone: Hematology/Oncology Comment on above: Care Coordination (C BC Results) Start: 09-10-2022 ambulatory Jasper MARIE Facility: [facility] Start: 09-05-2022 End: 09-13-[address] DOCTOR TOM Facility:[facility] Start: 09-04-2022 End: 09-04-2022 ambulatory FLASH PEARL Facility:[facility] Start: 09-04-2022 Patient encounter procedure [facility] Provider [facility] Start: 09-04-2022 Telephone encounter Asher frances MD Work Phone: [facility] Comment on above: Future Appointment Start: 08-28-2022 End: 08-29-2022 ambulatory Chair Billy Owens Work Phone: Hematology/Oncology Comment on above: Myelodysplastic synd sommer (HCC) (Primary Dx) Start: 08-28-2022 End: 08-28-2022 Office outpatient visit 25 minutes Asher Hummel MD Work Phone: Hematology/Oncology Comment on above: MDS (myelodysplastic syndrome) (HCC) (Primary Dx); Anemia of chronic renal failure, stage 4 (severe) (HCC) Start: 08-27-2022 End: 08-27-2022 ambulatory FLASH PEARL Facility:[facility] Start: 08-26-2022 Telephone encounter Angle parmar RN Work Phone: Hematology/Oncology Comment on above: Care Coordination (M edication Authorization) Start: 08-22-2022 Patient encounter procedure [facility] Provider [facility] Start: 08-22-2022 Telephone encounter Angle parmar RN Work Phone: Hematology/Oncology Comment on above: Care Coordination (T ransfusion Question) Start: 08-21-2022 Telephone encounter Wilfred smith APRN.FUNCTIONAL TESTER TYPEWRITERS Work Phone: [facility] Comment on above: Future Appointment Start: 08-21-2022 End: 08-21-2022 ambulatory Chair 18 Roman Work Phone: Hematology/Oncology Comment on above: Myelodysplastic synd sommer (HCC) (Primary Dx); CRF (chronic renal failure), stage 4 (severe) (HCC); Anemia of chronic renal failure, stage 4 (severe) (HCC); 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 loss; CKD (chronic kidney disease) stage 4, GFR 15-29 ml/min (HCC) MDS (myelodysplastic syndrome) (HCC) (Primary Dx); Anemia of chronic renal failure, stage 4 (severe) (HCC); 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 loss; CRF (chronic renal failure), stage 4 (severe) (HCC); 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 transfusions; CKD (chronic kidney disease) stage 4, GFR 15-29 ml/min (HCC); Hypotension due to hypovolemia Start: 08-21-2022 End: 08-21-2022 Patient encounter procedure Wilfred Martinez APRN.CNP Work Phone: [facility] Start: 08-14-2022 End: 08-14-2022 Patient encounter procedure Wilfred Martinez APRN.RAMONA Work Phone: [facility] Start: 08-14-2022 Telephone encounter Wilfred smith APRN.RAMONA Work Phone: [facility] Comment on above: Future Appointment Care Coordination (O rder Request) Treatment Planning Start: 08-14-2022 End: 08-14-2022 ambulatory Chair 17 Roman Work Phone: Hematology/Oncology Comment on above: Myelodysplastic synd sommer (HCC) (Primary Dx) Myelodysplastic synd sommer (HCC) (Primary Dx); Anemia of chronic renal failure, stage 4 (severe) (HCC); 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 loss; 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) Start: 08-13-2022 Telephone encounter Asher frances MD Work Phone: Hematology/Oncology Comment on above: Lab Orders Start: 08-08-2022 Patient encounter procedure [facility] Provider [facility] Start: 08-08-2022 End: 08-22-[address] DOCTOR TAYLOR Facility: Start: 08-07-2022 End: 08-07-2022 ambulatory Chair Genaro Owens Work Phone: Hematology/Oncology Comment on above: Myelodysplastic synd sommer (HCC) (Primary Dx); CRF (chronic renal failure), stage 4 (severe) (HCC); Anemia of chronic renal failure, stage 4 (severe) (HCC); 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 loss; CKD (chronic kidney disease) stage 4, GFR 15-29 ml/min (HCC) Start: 08-07-2022 End: 08-07-2022 Office outpatient visit 25 minutes Asher Hummel MD Work Phone: Hematology/Oncology Comment on above: MDS (myelodysplastic syndrome) (HCC) (Primary Dx); Anemia of chronic renal failure, stage 4 (severe) (HCC); CRF (chronic renal failure), stage 4 (severe) (HCC); 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 transfusions; Myelodysplastic syndrome (HCC) Start: 07-30-2022 End: 07-31-2022 ambulatory Radha Sandoval PA-C Work Phone: Hematology/Oncology Comment on above: MDS (myelodysplastic syndrome) (HCC) (Primary Dx); Anemia of chronic renal failure, stage 4 (severe) (HCC); CRF (chronic renal failure), stage 4 (severe) (HCC) Anemia of chronic re nal failure, stage 4 (severe) (HCC) (Primary Dx); 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 loss; Myelodysplastic syndrome (HCC) Start: 07-30-2022 End: 07-30-2022 Patient encounter procedure Radha Sandoval PA-C Work Phone: [facility] Start: 07-25-2022 Telephone encounter Miriam Elizabeth RN Hematology/Oncology Comment on above: Retacrit Injection Start: 07-24-2022 Telephone encounter Fide Fields Hematology/Oncology Comment on above: Critical Results Start: 07-23-2022 End: 07-23-2022 ambulatory ASHER HUMMEL Facility:[facility] Start: 07-23-2022 End: 07-23-2022 ambulatory Chair Billy Owens Work Phone: Hematology/Oncology Comment on above: Myelodysplastic synd sommer (HCC) (Primary Dx) MDS (myelodysplastic syndrome) (HCC) (Primary Dx); 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 transfusions; Anemia of chronic renal failure, stage 4 (severe) (HCC); Myelodysplastic syndrome (HCC) Start: 07-23-2022 End: 07-23-2022 Patient encounter procedure [facility] Provider [facility] Start: 07-23-2022 Telephone encounter Asher frances MD [facility] Comment on above: Transfusion Start: 07-18-2022 Telephone encounter Angle Kamara Hematology/Oncology Comment on above: Care Coordination (O xygen Question) Start: 07-16-2022 End: 07-16-2022 ambulatory FLASH PEARL Facility:[facility] Start: 07-16-2022 End: 07-16-2022 ambulatory Elysia Esposito MD Work Phone: Hematology/Oncology Comment on above: MDS (myelodysplastic syndrome) (HCC) (Primary Dx) Start: 07-16-2022 End: 07-16-2022 Patient encounter procedure Elysia Esposito MD Work Phone: [facility] Start: 07-15-2022 End: 07-16-2022 ambulatory ASHER HUMMEL Facility:[facility] Start: 07-15-2022 Telephone encounter Asher frances MD Work Phone: [facility] Comment on above: Future Appointment Start: 07-15-2022 End: 07-15-2022 ambulatory Chair Elena Owens Work Phone: Hematology/Oncology Comment on above: Myelodysplastic synd sommer (HCC) (Primary Dx); CRF (chronic renal failure), stage 4 (severe) (HCC); Anemia of chronic renal failure, stage 4 (severe) (HCC); 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 loss; CKD (chronic kidney disease) stage 4, GFR 15-29 ml/min (HCC) Myelodysplastic synd sommer (HCC) (Primary Dx); 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 transfusions; Anemia of chronic renal failure, stage 4 (severe) (HCC) Start: 07-15-2022 End: 07-15-2022 Patient encounter procedure Asehr Hummel MD Work Phone: [facility] Start: 07-11-2022 Telephone encounter Angle Kamara Hematology/Oncology Comment on above: Care Coordination (C BC Results) Start: 07-09-2022 End: 07-10-2022 ambulatory ASHER HUMMEL Facility:[facility] Start: 07-09-2022 End: 07-09-2022 ambulatory Chair 18 Roman Work Phone: Hematology/Oncology Comment on above: Myelodysplastic synd sommer (HCC) (Primary Dx) Start: 07-09-2022 Patient encounter procedure [facility] Provider [facility] Start: 07-08-2022 End: 07-25-[address] RADHA SANDOVAL Facility: Start: 07-08-2022 End: 07-08-2022 ambulatory WILFRED MARTINEZ Facility:[facility] Start: 07-08-2022 End: 07-08-2022 ambulatory Radha Sandoval PA-C Work Phone: Hematology/Oncology Comment on above: MDS (myelodysplastic syndrome) (HCC) (Primary Dx); CRF (chronic renal failure), stage 4 (severe) (HCC) Myelodysplastic synd sommer (HCC) (Primary Dx); CRF (chronic renal failure), stage 4 (severe) (HCC); Anemia of chronic renal failure, stage 4 (severe) (HCC); 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 loss; CKD (chronic kidney disease) stage 4, GFR 15-29 ml/min (HCC) Start: 07-08-2022 End: 07-08-2022 Patient encounter procedure Radha Sandoval PA-C Work Phone: [facility] Start: 07-08-2022 Telephone encounter Radha Collado Adryan calzada PA-C Work Phone: [facility] Comment on above: Transfusion Start: 07-02-2022 End: 07-02-2022 ambulatory FLASH PEARL Facility:[facility] Start: 07-02-2022 End: 07-02-2022 ambulatory Chair 18 [place] Work Phone: Hematology/Oncology Comment on above: Myelodysplastic synd sommer (HCC) (Primary Dx) Start: 07-01-2022 End: 07-01-2022 ambulatory ASHER HUMMEL Facility:[facility] Start: 07-01-2022 End: 07-01-2022 ambulatory Asher Hummel MD Work Phone: Hematology/Oncology Comment on above: MDS (myelodysplastic syndrome) (HCC) (Primary Dx); CRF (chronic renal failure), stage 4 (severe) (HCC); Anemia of chronic renal failure, stage 4 (severe) (HCC); 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 transfusions; CKD (chronic kidney disease) stage 4, GFR 15-29 ml/min (HCC) Myelodysplastic synd sommer (HCC) (Primary Dx); Anemia of chronic renal failure, stage 4 (severe) (HCC); 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 loss; CRF (chronic renal failure), stage 4 (severe) (HCC); CKD (chronic kidney disease) stage 4, GFR 15-29 ml/min (HCC) Start: 07-01-2022 End: 07-01-2022 Patient encounter procedure Asher Hummel MD Work Phone: [facility] Start: 06-25-2022 End: 06-26-2022 ambulatory Chair 17 Roman Work Phone: Hematology/Oncology Comment on above: Myelodysplastic synd sommer (HCC) (Primary Dx) Start: 06-24-2022 End: 06-24-2022 ambulatory FLASH PEARL Facility:[facility] Start: 06-24-2022 End: 06-24-2022 ambulatory Chair 13 Roman Work Phone: Hematology/Oncology Comment on above: Myelodysplastic synd sommer (HCC) (Primary Dx); CRF (chronic renal failure), stage 4 (severe) (HCC); Anemia of chronic renal failure, stage 4 (severe) (HCC); 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 loss; CKD (chronic kidney disease) stage 4, GFR 15-29 ml/min (HCC) MDS (myelodysplastic syndrome) (HCC) (Primary Dx); CRF (chronic renal failure), stage 4 (severe) (HCC); Anemia of chronic renal failure, stage 4 (severe) (HCC) Start: 06-24-2022 End: 06-24-2022 Patient encounter procedure Wilfred Martinez APRN.CNP Work Phone: [facility] Start: 06-18-2022 End: 06-19-2022 ambulatory Chair 9 [place] Work Phone: Hematology/Oncology Comment on above: Myelodysplastic synd sommer (HCC) (Primary Dx) Start: 06-17-2022 End: 06-17-2022 Patient encounter procedure Asher Hummel MD Work Phone: [facility] Start: 06-17-2022 Telephone encounter Asher frances MD Work Phone: [facility] Comment on above: Future Appointment Start: 06-17-2022 End: 06-17-2022 ambulatory FLASH PEARL Facility:[facility] Start: 06-17-2022 End: 06-17-2022 ambulatory Asher Hummel MD Work Phone: Hematology/Oncology Comment on above: Myelodysplastic synd sommer (HCC) (Primary Dx); 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 transfusions; CRF (chronic renal failure), stage 4 (severe) (HCC); CKD (chronic kidney disease) stage 4, GFR 15-29 ml/min (HCC) Start: 06-11-2022 End: 06-12-2022 ambulatory Chair 18 [place] Work Phone: Hematology/Oncology Comment on above: Myelodysplastic synd sommer (HCC) (Primary Dx) Start: 06-10-2022 End: 06-11-2022 ambulatory Chair 17 [place] Work Phone: Hematology/Oncology Comment on above: Myelodysplastic synd sommer (HCC) (Primary Dx); CRF (chronic renal failure), stage 4 (severe) (HCC); Anemia of chronic renal failure, stage 4 (severe) (HCC); 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 loss; CKD (chronic kidney disease) stage 4, GFR 15-29 ml/min (HCC) MDS (myelodysplastic syndrome) (HCC) (Primary Dx) Start: 06-10-2022 End: 06-10-2022 Patient encounter procedure [facility] Provider [facility] Start: 06-07-2022 Telephone encounter Asher frances MD Work Phone: Hematology/Oncology Comment on above: Critical Results Start: 06-04-2022 Patient encounter procedure [facility] Provider [facility] Start: 06-04-2022 End: 06-26-[address] DOCTOR TOM Facility: Start: 06-03-2022 End: 06-03-2022 ambulatory ASHER HUMMEL Facility:[facility] Start: 06-03-2022 Telephone encounter Asher frances MD Work Phone: [facility] Comment on above: Future Appointment Start: 06-03-2022 End: 06-04-2022 ambulatory Asher Hummel MD Work Phone: Hematology/Oncology Comment on above: MDS (myelodysplastic syndrome) (HCC) (Primary Dx); Dependent for standing; 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 transfusions; CRF (chronic renal failure), stage 4 (severe) (HCC); 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) Start: 06-03-2022 End: 06-03-2022 Patient encounter procedure Asher Hummel MD Work Phone: [facility] Start: 05-28-2022 End: 05-29-2022 ambulatory Chair Billy Owens Work Phone: Hematology/Oncology Comment on above: Myelodysplastic synd sommer (HCC) (Primary Dx) Start: 05-27-2022 End: 05-28-2022 ambulatory Chair Billy Owens Work Phone: Hematology/Oncology Comment on above: Myelodysplastic synd sommer (HCC) (Primary Dx); CRF (chronic renal failure), stage 4 (severe) (HCC); Anemia of chronic renal failure, stage 4 (severe) (HCC); 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 loss; CKD (chronic kidney disease) stage 4, GFR 15-29 ml/min (HCC) Start: 05-23-2022 Telephone encounter Angle Kamara Hematology/Oncology Comment on above: Care Coordination (C 1D1 Post Treatment Call) Start: 05-23-[address] [place] [facility] [place] Start: 05-21-2022 Patient encounter procedure [facility] Provider [facility] Start: 05-21-2022 End: 05-21-2022 ambulatory ASHER HUMMEL Facility:[facility] Start: 05-21-2022 End: 05-21-2022 ambulatory Chair 18 Roman Work Phone: Hematology/Oncology Comment on above: Myelodysplastic synd sommer (HCC) (Primary Dx) Start: 05-20-2022 End: 05-21-2022 ambulatory Chair 17 Roman Work Phone: Hematology/Oncology Comment on above: Myelodysplastic synd sommer (HCC) (Primary Dx); CRF (chronic renal failure), stage 4 (severe) (HCC); Anemia of chronic renal failure, stage 4 (severe) (HCC); 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 loss; CKD (chronic kidney disease) stage 4, GFR 15-29 ml/min (HCC); Need for influenza vaccination Myelodysplastic synd sommer (HCC) (Primary Dx); MDS (myelodysplastic syndrome) (HCC); 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 transfusions; CRF (chronic renal failure), stage 4 (severe) (HCC) Start: 05-20-2022 End: 05-20-2022 Patient encounter procedure Asher Hummel MD Work Phone: [facility] Start: 05-20-2022 Telephone encounter Asher frances MD Work Phone: [facility] Comment on above: Future Appointment Care Coordination (A ntiemetics) Start: 05-14-2022 Telephone encounter Angle Kamara Hematology/Oncology Comment on above: Care Coordination (T reatment Planning) Start: 05-13-2022 End: 05-14-2022 ambulatory ASHER HUMMEL Facility:[facility] Start: 05-13-2022 End: 05-13-2022 ambulatory Lab/Port Sam Roman Work Phone: Hematology/Oncology Comment on above: CRF (chronic renal f ailure), stage 4 (severe) (HCC) (Primary Dx); Anemia of chronic renal failure, stage 4 (severe) (HCC); 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 loss; CKD (chronic kidney disease) stage 4, GFR 15-29 ml/min (HCC); Myelodysplastic syndrome (HCC) Start: 05-07-2022 Patient encounter procedure Ccf Provider [facility] Start: 05-07-2022 End: 05-24-[address] DOCTOR TOM Facility: Start: 05-06-2022 End: 05-06-2022 ambulatory FLASH PEARL Facility:[facility] Start: 05-06-2022 End: 05-06-2022 ambulatory Lab/[facility] [place] Work Phone: Hematology/Oncology Comment on above: Anemia of chronic re nal failure, stage 4 (severe) (HCC) (Primary Dx); 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 loss; Myelodysplastic syndrome (HCC); CRF (chronic renal failure), stage 4 (severe) (HCC); CKD (chronic kidney disease) stage 4, GFR 15-29 ml/min (HCC) MDS (myelodysplastic syndrome) (HCC) (Primary Dx); Anemia of chronic renal failure, stage 4 (severe) (HCC); 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 transfusions; CRF (chronic renal failure), stage 4 (severe) (HCC) Start: 05-06-2022 End: 05-06-2022 Patient encounter procedure Asher Hummel MD Work Phone: [facility] Start: 05-06-2022 Telephone encounter Asher frances MD Work Phone: [facility] Comment on above: Transfusion Start: 04-29-2022 Telephone encounter Angle Kamara Hematology/Oncology Comment on above: Care Coordination (F oundation One Question) Start: 04-29-2022 End: 04-30-2022 ambulatory Asher Hummel MD Work Phone: Hematology/Oncology Comment on above: Myelodysplastic synd sommer (HCC) (Primary Dx); CRF (chronic renal failure), stage 4 (severe) (HCC); Anemia of chronic renal failure, stage 4 (severe) (HCC) CRF (chronic renal f ailure), stage 4 (severe) (HCC) (Primary Dx); Anemia of chronic renal failure, stage 4 (severe) (HCC); 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 loss; CKD (chronic kidney disease) stage 4, GFR 15-29 ml/min (HCC); Myelodysplastic syndrome (HCC) Start: 04-29-2022 End: 04-29-2022 Patient encounter procedure Asher Hummel MD Work Phone: [facility] Start: 04-25-2022 End: 04-25-2022 Patient encounter procedure Ccf Provider [facility] Start: 04-25-2022 End: 04-25-2022 ambulatory ASHER HUMMEL Facility:[facility] Start: 04-25-2022 End: 04-25-2022 ambulatory Asher Hummel MD Work Phone: Hematology/Oncology Comment on above: Myelodysplastic synd sommer (HCC) (Primary Dx); CRF (chronic renal failure), stage 4 (severe) (HCC) Start: 04-23-2022 Telephone encounter Radha LUCEROC Work Phone: Hematology/Oncology Comment on above: Patient Update Start: 04-22-2022 End: 04-22-2022 ambulatory ASHER HUMMEL Facility:[facility] Start: 04-22-2022 End: 04-23-[address] RADHA SANDOVAL Facility: Start: 04-18-2022 End: 04-18-2022 ambulatory ASHER ESTEPHANIE Facility:[facility] Start: 04-18-2022 End: 04-18-2022 ambulatory lEysia Esposito MD Work Phone: Hematology/Oncology Comment on above: MDS (myelodysplastic syndrome) (HCC) (Primary Dx) Start: 04-18-2022 End: 04-18-2022 Patient encounter procedure Elysia Esposito MD Work Phone: [facility] Start: 04-15-2022 End: 04-15-2022 ambulatory ASHER HUMMEL Facility:[facility] Start: 04-15-2022 End: 04-15-2022 ambulatory Lab/[facility] [place] Work Phone: Hematology/Oncology Comment on above: Malignant neoplasm o f prostate (HCC) (Primary Dx) Start: 04-15-2022 Telephone encounter Asher frances MD Work Phone: Hematology/Oncology Comment on above: Results (CBC/) Start: 04-08-2022 End: 04-09-2022 ambulatory ASHER HUMMEL Facility:[facility] Start: 04-08-2022 End: 04-08-2022 ambulatory Lab/[facility] [place] Work Phone: Hematology/Oncology Comment on above: Anemia of chronic re nal failure, stage 4 (severe) (HCC) (Primary Dx); 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 loss; Myelodysplastic syndrome (HCC); CRF (chronic renal failure), stage 4 (severe) (HCC); CKD (chronic kidney disease) stage 4, GFR 15-29 ml/min (HCC) Start: 04-08-2022 End: 04-08-2022 ambulatory Asher Hummel MD Work Phone: Hematology/Oncology Comment on above: Myelodysplastic synd sommer (HCC) (Primary Dx); CKD (chronic kidney disease) stage 4, GFR 15-29 ml/min (HCC); Anemia of chronic renal failure, stage 4 (severe) (HCC) Start: 04-08-2022 End: 04-08-2022 Patient encounter procedure Ccf Provider [facility] Start: 04-03-2022 End: 04-04-[address] WILFRED MARTINEZ Facility: Start: 04-03-2022 Patient encounter procedure Ccf Provider [facility] Start: 04-03-2022 Telephone encounter Fide Fields Hematology/Oncology Comment on above: Results Start: 04-02-2022 End: 04-02-2022 ambulatory ASHER AFUAJESSICA Facility:[facility] Start: 04-02-2022 Telephone encounter Asher frances MD Work Phone: [facility] Comment on above: Results Future Appointment Start: 03-25-2022 End: 03-26-2022 ambulatory Lab/Port [facility] [place] Work Phone: Hematology/Oncology Comment on above: CRF (chronic renal f ailure), stage 4 (severe) (HCC) (Primary Dx); Anemia of chronic renal failure, stage 4 (severe) (HCC); 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 loss; CKD (chronic kidney disease) stage 4, GFR 15-29 ml/min (HCC); Myelodysplastic syndrome (HCC) Start: 03-19-2022 Telephone encounter Angle parmar RN Work Phone: Hematology/Oncology Comment on above: Care Coordination (R esults) Care Coordination (R eferral) Start: 03-18-2022 End: 03-18-2022 ambulatory [facility] Facility:[facility] Start: 03-18-2022 Telephone encounter Asher frances MD Work Phone: [facility] Comment on above: Care Coordination (L ab results/) Start: 03-15-2022 End: 03-15-2022 ambulatory Chair Billy Owens Work Phone: Hematology/Oncology Comment on above: Myelodysplastic synd sommer (HCC) (Primary Dx) Start: 03-14-2022 Telephone encounter Angle parmar RN Work Phone: Hematology/Oncology Comment on above: Care Coordination (A ppointment) Start: 03-14-2022 End: 03-15-2022 ambulatory Chair 17 Roman Work Phone: Hematology/Oncology Comment on above: Myelodysplastic synd smomer (HCC) (Primary Dx) Start: 03-13-2022 End: 03-13-2022 ambulatory [facility] Facility:[facility] Start: 03-13-2022 End: 03-13-2022 ambulatory Chair Billy Owens Work Phone: Hematology/Oncology Comment on above: Myelodysplastic synd sommer (HCC) (Primary Dx) Start: 03-12-2022 End: 03-13-2022 ambulatory ASHER HUMMEL Facility:[facility] Start: 03-12-2022 Patient encounter procedure Ccf Provider [facility] Start: 03-11-2022 End: 03-12-2022 ambulatory ASHER ESTEPHANIE Facility:[facility] Start: 03-11-2022 End: 03-11-2022 ambulatory Chair 19 Roman Work Phone: Hematology/Oncology Comment on above: Anemia of chronic re nal failure, stage 4 (severe) (HCC) (Primary Dx); 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 loss; Myelodysplastic syndrome (HCC); CRF (chronic renal failure), stage 4 (severe) (HCC); CKD (chronic kidney disease) stage 4, GFR 15-29 ml/min (HCC) Myelodysplastic synd sommer (HCC) (Primary Dx); CKD (chronic kidney disease) stage 4, GFR 15-29 ml/min (HCC); Anemia of chronic renal failure, stage 4 (severe) (HCC); 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 loss Start: 03-11-2022 End: 03-11-2022 Patient encounter procedure Asher Hummel MD Work Phone: [facility] Start: 03-11-2022 Telephone encounter Asher frances MD Work Phone: [facility] Comment on above: Future Appointment Start: 03-04-2022 End: 03-04-2022 ambulatory FLASH PEARL Facility:[facility] Start: 02-28-2022 End: 03-27-[address] DOCTOR TOM Facility: Start: 02-28-2022 End: 02-28-2022 ambulatory ASHER HUMMEL Facility:[facility] Start: 02-28-2022 Telephone encounter Asher frances MD Work Phone: [facility] Comment on above: Transfusion Start: 02-25-2022 End: 02-25-2022 ambulatory ASHER HUMMEL Facility:[facility] Start: 02-25-2022 End: 02-25-2022 ambulatory Lab/Port Sam [place] Work Phone: Hematology/Oncology Comment on above: CRF (chronic renal f ailure), stage 4 (severe) (HCC) (Primary Dx); Anemia of chronic renal failure, stage 4 (severe) (HCC); 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 loss; CKD (chronic kidney disease) stage 4, GFR 15-29 ml/min (HCC); Myelodysplastic syndrome (HCC) Start: 02-18-2022 End: 02-18-2022 ambulatory FLASH PEARL Facility:[facility] Start: 02-15-2022 End: 02-15-2022 ambulatory Chair 17 Roman Work Phone: Hematology/Oncology Comment on above: Myelodysplastic synd sommer (HCC) (Primary Dx); CRF (chronic renal failure), stage 4 (severe) (HCC) Start: 02-14-2022 End: 02-14-2022 ambulatory Chair 17 Roman Work Phone: Hematology/Oncology Comment on above: Myelodysplastic synd sommer (HCC) (Primary Dx) Start: 02-13-2022 End: 02-13-2022 ambulatory Chair 17 Roman Work Phone: Hematology/Oncology Comment on above: Myelodysplastic synd sommer (HCC) (Primary Dx) Start: 02-12-2022 End: 02-13-2022 ambulatory Chair 17 Roman Work Phone: Hematology/Oncology Comment on above: Myelodysplastic synd sommer (HCC) (Primary Dx) Start: 02-11-2022 End: 02-11-2022 ambulatory Radha Sandoval PA-C Work Phone: Hematology/Oncology Comment on above: Myelodysplastic synd sommer (HCC) (Primary Dx); Anemia of chronic renal failure, stage 4 (severe) (HCC) Anemia of chronic re nal failure, stage 4 (severe) (HCC) (Primary Dx); 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 loss; Myelodysplastic syndrome (HCC); CRF (chronic renal failure), stage 4 (severe) (HCC); CKD (chronic kidney disease) stage 4, GFR 15-29 ml/min (HCC) Start: 02-11-2022 End: 02-11-2022 Patient encounter procedure Radha Sandoval PA-C Work Phone: [facility] Start: 02-04-2022 End: 02-05-[address] NONE LISTED REQUEST Facility: Start: 02-04-2022 End: 02-04-2022 ambulatory ASHER ESTEPHANIE Facility:[facility] Start: 02-04-2022 Telephone encounter Asher frances MD Work Phone: [facility] Comment on above: Future Appointment Care Coordination (C ritical Results) Start: 02-04-2022 End: 02-04-2022 ambulatory Lab/[facility] [place] Work Phone: Hematology/Oncology Comment on above: Anemia of chronic re nal failure, stage 4 (severe) (HCC) (Primary Dx) Start: 01-30-2022 End: 01-30-2022 ambulatory ASHER ABDIANNAJESSICA Facility:[facility] Start: 01-30-2022 End: 01-30-2022 ambulatory Lab/[facility] [place] Work Phone: Hematology/Oncology Comment on above: CRF (chronic renal f ailure), stage 4 (severe) (HCC) (Primary Dx); Anemia of chronic renal failure, stage 4 (severe) (HCC); 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 loss; CKD (chronic kidney disease) stage 4, GFR 15-29 ml/min (HCC); Myelodysplastic syndrome (HCC) Start: 01-21-2022 End: 01-21-2022 ambulatory Chair 21 Roman Work Phone: Hematology/Oncology Comment on above: Myelodysplastic synd sommer (HCC); CRF (chronic renal failure), stage 4 (severe) (HCC); Anemia of chronic renal failure, stage 4 (severe) (HCC); 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 transfusions Start: 01-18-2022 End: 01-18-2022 ambulatory Chair 17 Roman Work Phone: Hematology/Oncology Comment on above: CRF (chronic renal f ailure), stage 4 (severe) (HCC) (Primary Dx); Myelodysplastic syndrome (HCC) Start: 01-17-2022 End: 01-17-2022 ambulatory Chair 17 Roman Work Phone: Hematology/Oncology Comment on above: Myelodysplastic synd sommer (HCC) (Primary Dx) Start: 01-16-2022 End: 01-17-2022 ambulatory Chair 17 Roman Work Phone: Hematology/Oncology Comment on above: Myelodysplastic synd sommer (HCC) (Primary Dx) Start: 01-15-2022 End: 01-16-2022 ambulatory Chair 17 Roman Work Phone: Hematology/Oncology Comment on above: Myelodysplastic synd sommer (HCC) (Primary Dx) Start: 01-15-2022 Patient encounter procedure [facility] Provider [facility] Start: 01-14-2022 End: 01-14-2022 ambulatory ASHER HUMMEL Facility:[facility] Start: 01-14-2022 Telephone encounter Asher frances MD Work Phone: [facility] Comment on above: Future Appointment Lab Orders Start: 01-14-2022 End: 01-14-2022 ambulatory Chair 18 Roman Work Phone: Hematology/Oncology Comment on above: Myelodysplastic synd sommer (HCC) (Primary Dx); CRF (chronic renal failure), stage 4 (severe) (HCC); Anemia of chronic renal failure, stage 4 (severe) (HCC); 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 loss; CKD (chronic kidney disease) stage 4, GFR 15-29 ml/min (HCC) Myelodysplastic synd sommer (HCC) (Primary Dx); CRF (chronic renal failure), stage 4 (severe) (HCC); 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 loss; 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) Start: 01-14-2022 End: 01-14-2022 Patient encounter procedure Asher Hummel MD Work Phone: [facility] Start: 01-07-2022 End: 01-08-2022 ambulatory FLASH LENO PEARL Facility:[facility] Start: 01-07-2022 End: 01-07-2022 Nursing evaluation of patient and report Ma Nurse Sam Bray Work Phone: Hematology/Oncology Comment on above: Anemia of chronic re nal failure, stage 4 (severe) (HCC) (Primary Dx); 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 loss; Myelodysplastic syndrome (HCC) Start: 01-01-2022 Telephone encounter Miriam Elizabeth RN Hematology/Oncology Comment on above: B12 injections Start: 12-21-2021 End: 12-21-2021 ambulatory Chair 17 [place] Work Phone: Hematology/Oncology Comment on above: Myelodysplastic synd sommer (HCC) (Primary Dx) Start: 12-20-2021 End: 12-20-2021 ambulatory Chair 17 [place] Work Phone: Hematology/Oncology Comment on above: Myelodysplastic synd sommer (HCC) (Primary Dx) Start: 12-19-2021 End: 12-19-2021 ambulatory Chair 17 [place] Work Phone: Hematology/Oncology Comment on above: Myelodysplastic synd sommer (HCC) (Primary Dx) Start: 12-17-2021 End: 12-17-2021 ambulatory Chair 17 [place] Work Phone: Hematology/Oncology Comment on above: Myelodysplastic synd sommer (HCC) (Primary Dx); CRF (chronic renal failure), stage 4 (severe) (HCC); Anemia of chronic renal failure, stage 4 (severe) (HCC); 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 loss; CKD (chronic kidney disease) stage 4, GFR 15-29 ml/min (HCC) Myelodysplastic synd sommer (HCC) (Primary Dx); CRF (chronic renal failure), stage 4 (severe) (HCC); Anemia of chronic renal failure, stage 4 (severe) (HCC); 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 transfusions; 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) Start: 12-17-2021 End: 12-17-2021 Patient encounter procedure Asher Hummel MD Work Phone: [facility] Start: 11-29-2021 End: 11-29-2021 ambulatory Asher Hummel MD Work Phone: Hematology/Oncology Comment on above: Myelodysplastic synd sommer (HCC) (Primary Dx); CRF (chronic renal failure), stage 4 (severe) (HCC); Anemia of chronic renal failure, stage 4 (severe) (HCC); 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 transfusions; 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) Acute heart failure, unspecified heart failure type (HCC) (Primary Dx) Start: 11-29-2021 End: 11-29-2021 Patient encounter procedure Asher Hummel MD Work Phone: [facility] Start: 11-28-2021 Telephone encounter Angle parmar RN Work Phone: Hematology/Oncology Comment on above: Care Coordination (D ischarge Follow Up Call) Start: 11-20-2021 Telephone encounter Angle parmar RN Work Phone: Hematology/Oncology Comment on above: Care Coordination (H ospital Admission) Start: 11-18-2021 End: 11-25-2021 Evaluation and management of inpatient KELSEY RAMIREZ Facility:[facility] Start: 11-16-2021 Patient encounter procedure [facility] Provider [facility] Start: 11-16-2021 Telephone encounter Angle parmar RN Work Phone: Hematology/Oncology Comment on above: Care Coordination (C BC Results) Start: 11-08-2021 End: 11-08-2021 ambulatory Lab/Port Sam Roman Work Phone: Hematology/Oncology Comment on above: Anemia of chronic re nal failure, stage 4 (severe) (HCC) (Primary Dx); CRF (chronic renal failure), stage 4 (severe) (HCC); 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 loss; CKD (chronic kidney disease) stage 4, GFR 15-29 ml/min (HCC); Myelodysplastic syndrome (HCC) Start: 11-01-2021 End: 11-01-2021 ambulatory Chair 18 Roman Work Phone: Hematology/Oncology Comment on above: Myelodysplastic synd sommer (HCC) (Primary Dx); CRF (chronic renal failure), stage 4 (severe) (HCC) Start: 10-30-2021 End: 10-30-2021 ambulatory Chair 17 Roman Work Phone: Hematology/Oncology Comment on above: Myelodysplastic synd sommer (HCC) (Primary Dx) Start: 10-29-2021 End: 10-29-2021 ambulatory Chair 18 Roman Work Phone: Hematology/Oncology Comment on above: Myelodysplastic synd sommer (HCC) (Primary Dx) Start: 10-29-2021 Telephone encounter Angle parmar RN Work Phone: Hematology/Oncology Comment on above: Care Coordination (T ransfusion Update) Start: 10-26-2021 Patient encounter procedure [facility] Provider [facility] Start: 10-25-2021 End: 10-25-2021 ambulatory Lab/Port Sam Roman Work Phone: Hematology/Oncology Comment on above: CRF (chronic renal f ailure), stage 4 (severe) (HCC) (Primary Dx); Anemia of chronic renal failure, stage 4 (severe) (HCC); 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 loss; CKD (chronic kidney disease) stage 4, GFR 15-29 ml/min (HCC); Myelodysplastic syndrome (HCC) Myelodysplastic synd sommer (HCC) (Primary Dx); CRF (chronic renal failure), stage 4 (severe) (HCC); 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 loss; Hypotension due to hypovolemia; 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 transfusions; Malignant neoplasm of prostate (HCC); Hyperkalemia Start: 10-25-2021 End: 10-25-2021 Patient encounter procedure Wilfred Martinez APRN.CNP Work Phone: [facility] Start: 10-15-2021 End: 10-15-2021 Patient encounter procedure Oumou Wade MD Work Phone: Otolaryngology Comment on above: Chronic Eustachian t ube dysfunction, bilateral (Primary Dx); Epistaxis Start: 09-05-2021 End: 09-05-2021 ambulatory Chair 18 Roman Work Phone: Hematology/Oncology Comment on above: Myelodysplastic synd sommer (HCC) (Primary Dx) Start: 05-29-2020 End: 05-29-2020 Patient encounter procedure External Provider [facility] Start: 05-29-2020 Results Only External Provider Exter nal-NonCCF Start: 06-23-2018 End: 06-24-2018 Patient encounter procedure Evette Reyna Jaziel Facility:[facility] Start: 06-11-2018 End: 06-12-2018 Patient encounter procedure Evette Reyna Jaziel Facility:[facility] Start: 05-28-2018 End: 05-29-2018 Patient encounter procedure MYLENE Ines ANDREW Facility:[facility] Procedures Date Procedure Procedure Detail Performing Clinician Start: 11-14-2022 Transfusion of Nonautologous Red Blood Cells into Peripheral Vein, Percutaneous Approach [facility] Start: 05-27-2022 CBC + DIFF Asher frances MD Work Phone: Start: 05-27-2022 Comprehensive metabo lic panel Asher Hummel MD Work Phone: Start: 04-25-2022 Blood count complete auto&auto difrntl wbc Asher Hummel MD Work Phone: Start: 04-25-2022 FLOW CYTOMETRY BONE MARROW HOLD (BMHOLD) Asher Hummel MD Work Phone: Start: 04-25-2022 FLOW CYTOMETRY BONE MARROW REFLEX Asher Hummel MD Work Phone: Start: 02-15-2022 CBC + DIFF Asher frances MD Work Phone: Start: 02-15-2022 Comprehensive metabo lic panel Asher Hummel MD Work Phone: Start: 01-21-2022 CBC + DIFF Asher frances MD Work Phone: Start: 01-21-2022 Comprehensive metabo lic panel Asher Hummel MD Work Phone: Start: 01-18-2022 Comprehensive metabo lic panel Asher Hummel MD Work Phone: Start: 11-17-2021 Antibody screen QUINCY RAMIREZ Comment on above: Performed By: #### [id number] ####[facility] [id number] Start: 11-01-2021 Blood count complete auto&auto difrntl wbc Asher Hummel MD Work Phone: Start: 05-29-2020 EXTERNAL IMAGING Outsole Scheduler al Provider Start: 05-29-2020 End: 05-29-2020 EXTERNAL LAB External Provider Start: 05-29-2020 EXTERNAL PROCEDURE Exte rnal Provider Start: 10-23-2011 cysto/ud, bilateral RG Pyelogram Álvaor Barton Cataract care Álvaro Barton Placement of stent i n cardiac conduit Álvaro Barton Comment on above: 2x Plan of Treatment Date Care Activity Detail Author Start: 11-20-2025 DIABETES SCREEN DIABETES SCREEN [facility] Start: 11-06-2025 DIABETES SCREEN DIABETES SCREEN [facility] Start: 10-30-2025 DIABETES SCREEN DIABETES SCREEN [facility] Start: 10-23-2025 DIABETES SCREEN DIABETES SCREEN [facility] Start: 10-16-2025 DIABETES SCREEN DIABETES SCREEN [facility] Start: 10-02-2025 DIABETES SCREEN DIABETES SCREEN [facility] Start: 09-25-2025 DIABETES SCREEN DIABETES SCREEN [facility] Start: 09-18-2025 DIABETES SCREEN DIABETES SCREEN [facility] Start: 09-11-2025 DIABETES SCREEN DIABETES SCREEN [facility] Start: 09-04-2025 DIABETES SCREEN DIABETES SCREEN [facility] Start: 08-28-2025 DIABETES SCREEN DIABETES SCREEN [facility] Start: 08-21-2025 DIABETES SCREEN DIABETES SCREEN [facility] Start: 08-14-2025 DIABETES SCREEN DIABETES SCREEN [facility] Start: 08-07-2025 DIABETES SCREEN DIABETES SCREEN [facility] Start: 07-30-2025 DIABETES SCREEN DIABETES SCREEN [facility] Start: 07-23-2025 DIABETES SCREEN DIABETES SCREEN [facility] Start: 07-15-2025 DIABETES SCREEN DIABETES SCREEN [facility] Start: 07-08-2025 DIABETES SCREEN DIABETES SCREEN [facility] Start: 07-01-2025 DIABETES SCREEN DIABETES SCREEN [facility] Start: 06-24-2025 DIABETES SCREEN DIABETES SCREEN [facility] Start: 06-17-2025 DIABETES SCREEN DIABETES SCREEN [facility] Start: 06-10-2025 DIABETES SCREEN DIABETES SCREEN [facility] Start: 06-03-2025 DIABETES SCREEN DIABETES SCREEN [facility] Start: 05-27-2025 DIABETES SCREEN DIABETES SCREEN [facility] Start: 05-20-2025 DIABETES SCREEN DIABETES SCREEN [facility] Start: 05-13-2025 DIABETES SCREEN DIABETES SCREEN [facility] Start: 05-06-2025 DIABETES SCREEN DIABETES SCREEN [facility] Start: 04-29-2025 DIABETES SCREEN DIABETES SCREEN [facility] Start: 04-25-2025 DIABETES SCREEN DIABETES SCREEN [facility] Start: 04-22-2025 DIABETES SCREEN DIABETES SCREEN [facility] Start: 04-15-2025 DIABETES SCREEN DIABETES SCREEN [facility] Start: 04-08-2025 DIABETES SCREEN DIABETES SCREEN [facility] Start: 04-02-2025 DIABETES SCREEN DIABETES SCREEN [facility] Start: 03-25-2025 DIABETES SCREEN DIABETES SCREEN [facility] Start: 03-18-2025 DIABETES SCREEN DIABETES SCREEN [facility] Start: 03-11-2025 DIABETES SCREEN DIABETES SCREEN [facility] Start: 02-28-2025 DIABETES SCREEN DIABETES SCREEN [facility] Start: 02-25-2025 DIABETES SCREEN DIABETES SCREEN [facility] Start: 02-15-2025 DIABETES SCREEN DIABETES SCREEN [facility] Start: 02-11-2025 DIABETES SCREEN DIABETES SCREEN [facility] Start: 02-04-2025 DIABETES SCREEN DIABETES SCREEN [facility] Start: 01-30-2025 DIABETES SCREEN DIABETES SCREEN [facility] Start: 01-21-2025 DIABETES SCREEN DIABETES SCREEN [facility] Start: 01-18-2025 DIABETES SCREEN DIABETES SCREEN [facility] Start: 01-14-2025 DIABETES SCREEN DIABETES SCREEN [facility] Start: 01-07-2025 DIABETES SCREEN DIABETES SCREEN [facility] Start: 12-21-2024 DIABETES SCREEN DIABETES SCREEN [facility] Start: 12-17-2024 DIABETES SCREEN DIABETES SCREEN [facility] Start: 11-29-2024 DIABETES SCREEN DIABETES SCREEN [facility] Start: 11-15-2024 DIABETES SCREEN DIABETES SCREEN [facility] Start: 11-08-2024 DIABETES SCREEN DIABETES SCREEN [facility] Start: 11-01-2024 DIABETES SCREEN DIABETES SCREEN [facility] Start: 10-25-2024 DIABETES SCREEN DIABETES SCREEN [facility] Start: 10-11-2024 DIABETES SCREEN DIABETES SCREEN [facility] Start: 09-03-2024 DIABETES SCREEN DIABETES SCREEN [facility] Start: 08-14-2022 End: 10-14-2022 Hematocrit [Volume Fraction] of Blood HEMATOCRIT (HCT) Lab Routine Myelodysplastic syndrome (HCC) Expected: 08/14/2022, Expires: 10/14/2022 [facility] Work Phone: Comment on above: Expected: 08/14/2022, Expires: 3 Start: 08-14-2022 End: 10-14-2022 Hemoglobin [Mass/volume] in Blood HEMOGLOBIN (HGB) Lab Routine Myelodysplastic syndrome (HCC) Expected: 08/14/2022, Expires: 10/14/2022 [facility] Work Phone: Comment on above: Expected: 08/14/2022, Expires: 3 Start: 08-13-2022 End: 10-13-2022 CBC W Auto Differential panel - Blood CBC + DIFF Lab Routine 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 loss Expected: 08/13/2022, Expires: 10/13/2022 [facility] Work Phone: Comment on above: Expected: 08/13/2022, Expires: 3 Start: 08-13-2022 End: 10-13-2022 Comprehensive metabolic 2000 panel - Serum or Plasma COMP METABOLIC PANEL Lab Routine 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 loss Expected: 08/13/2022, Expires: 10/13/2022 [facility] Work Phone: Comment on above: Expected: 08/13/2022, Expires: 3 Start: 08-13-2022 End: 10-13-2022 Lactate dehydrogenase [Enzymatic activity/volume] in Serum or Plasma LD LACTATE DEHYDRO Lab Routine 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 loss Expected: 08/13/2022, Expires: 10/13/2022 [facility] Work Phone: Comment on above: Expected: 08/13/2022, Expires: 3 Start: 07-30-2022 End: 09-29-2022 CBC W Auto Differential panel - Blood CBC + DIFF Lab Routine MDS (myelodysplastic syndrome) (HCC) Anemia of chronic renal failure, stage 4 (severe) (HCC) CRF (chronic renal failure), stage 4 (severe) (HCC) Expected: 07/30/2022, Expires: 09/29/2022 [facility] Work Phone: Comment on above: Expected: 07/30/2022, Expires: 3 Start: 07-30-2022 End: 09-29-2022 Comprehensive metabolic 2000 panel - Serum or Plasma COMP METABOLIC PANEL Lab Routine MDS (myelodysplastic syndrome) (HCC) Anemia of chronic renal failure, stage 4 (severe) (HCC) CRF (chronic renal failure), stage 4 (severe) (HCC) Expected: 07/30/2022, Expires: 09/29/2022 [facility] Work Phone: Comment on above: Expected: 07/30/2022, Expires: 3 Start: 07-28-2022 ADVANCE DIRECTIVE DISCUSSION ADVANCE DIRECTIVE DISCUSSION [facility] Start: 07-28-2022 DEPRESSION ASSESSMENT DEPRESSION ASSESSMENT [facility] Start: 07-08-2022 End: 09-07-2022 CBC W Auto Differential panel - Blood CBC + DIFF Lab Routine MDS (myelodysplastic syndrome) (HCC) CRF (chronic renal failure), stage 4 (severe) (HCC) Expected: 07/08/2022, Expires: 09/07/2022 [facility] Work Phone: Comment on above: Expected: 07/08/2022, Expires: 3 Start: 07-08-2022 End: 09-07-2022 Comprehensive metabolic 2000 panel - Serum or Plasma COMP METABOLIC PANEL Lab Routine MDS (myelodysplastic syndrome) (HCC) CRF (chronic renal failure), stage 4 (severe) (HCC) Expected: 07/08/2022, Expires: 09/07/2022 [facility] Work Phone: Comment on above: Expected: 07/08/2022, Expires: 3 Start: 06-24-2022 End: 08-24-2022 CBC W Auto Differential panel - Blood CBC + DIFF Lab Routine MDS (myelodysplastic syndrome) (HCC) CRF (chronic renal failure), stage 4 (severe) (HCC) Anemia of chronic renal failure, stage 4 (severe) (HCC) Expected: 06/24/2022, Expires: 08/24/2022 [facility] Work Phone: Comment on above: Expected: 06/24/2022, Expires: 3 Start: 06-24-2022 End: 08-24-2022 Comprehensive metabolic 2000 panel - Serum or Plasma COMP METABOLIC PANEL Lab Routine MDS (myelodysplastic syndrome) (HCC) CRF (chronic renal failure), stage 4 (severe) (HCC) Anemia of chronic renal failure, stage 4 (severe) (HCC) Expected: 06/24/2022, Expires: 08/24/2022 [facility] Work Phone: Comment on above: Expected: 06/24/2022, Expires: 3 Start: 06-10-2022 End: 08-10-2022 CBC W Auto Differential panel - Blood CBC + DIFF Lab Routine MDS (myelodysplastic syndrome) (HCC) Expected: 06/10/2022, Expires: 08/10/2022 [facility] Work Phone: Comment on above: Expected: 06/10/2022, Expires: 3 Start: 06-10-2022 End: 08-10-2022 Comprehensive metabolic 2000 panel - Serum or Plasma COMP METABOLIC PANEL Lab Routine MDS (myelodysplastic syndrome) (HCC) Expected: 06/10/2022, Expires: 08/10/2022 [facility] Work Phone: Comment on above: Expected: 06/10/2022, Expires: 3 Start: 04-25-2022 End: 06-25-2022 [facility] Lab Routine Myelodysplastic syndrome (HCC) Expected: 04/25/2022, Expires: 06/25/2022 [facility] Work Phone: Comment on above: Expected: 04/25/2022, Expires: 2 Start: 03-28-2022 Influenza vaccination INFLUENZA (#1) [facility] Start: 02-11-2022 End: 04-13-2022 CBC W Auto Differential panel - Blood CBC + DIFF Lab Routine Anemia of chronic renal failure, stage 4 (severe) (HCC) Myelodysplastic syndrome (HCC) Expected: 02/11/2022, Expires: 04/13/2022 [facility] Work Phone: Comment on above: Expected: 02/11/2022, Expires: 2 Start: 02-11-2022 End: 04-13-2022 Comprehensive metabolic 2000 panel - Serum or Plasma COMP METABOLIC PANEL Lab Routine Anemia of chronic renal failure, stage 4 (severe) (HCC) Myelodysplastic syndrome (HCC) Expected: 02/11/2022, Expires: 04/13/2022 [facility] Work Phone: Comment on above: Expected: 02/11/2022, Expires: 2 Start: 12-02-2021 End: 11-29-2022 CBC W Auto Differential panel - Blood CBC + DIFF Lab Routine Myelodysplastic syndrome (HCC) CRF (chronic renal failure), stage 4 (severe) (HCC) Anemia of chronic renal failure, stage 4 (severe) (HCC) 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 transfusions Expected: 12/02/2021 (Approximate), Expires: 11/29/2022 [facility] Work Phone: Comment on above: Expected: 12/02/2021 (Approximate), Expi res: 11/29/2022 Start: 12-02-2021 End: 11-29-2022 Comprehensive metabolic 2000 panel - Serum or Plasma COMP METABOLIC PANEL Lab Routine Myelodysplastic syndrome (HCC) CRF (chronic renal failure), stage 4 (severe) (HCC) Anemia of chronic renal failure, stage 4 (severe) (HCC) 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 transfusions Expected: 12/02/2021 (Approximate), Expires: 11/29/2022 [facility] Work Phone: Comment on above: Expected: 12/02/2021 (Approximate), Expi res: 11/29/2022 Start: 07-28-2021 ADVANCE DIRECTIVE DISCUSSION ADVANCE DIRECTIVE DISCUSSION [facility] Start: 07-28-2021 DEPRESSION ASSESSMENT DEPRESSION ASSESSMENT [facility] Start: 03-28-2020 Influenza vaccination INFLUENZA (#1) [facility] Start: 05-08-2015 PNEUMOCOCCAL: 65+ (3 - PCV) PNEUMOCOCCAL: 65+ (3 - PCV) [facility] Start: 06-27-2008 DIABETES SCREEN DIABETES SCREEN [facility] Start: 07-13-2007 PNEUMOVAX AGE 65 AND OVER WITH 5YR LOOKBACK (#1) PNEUMOVAX AGE 65 AND OVER WITH 5YR LOOKBACK (#1) [facility] Start: 06-27-2006 Hepatitis B surface antibody level LDL CHOLESTEROL [facility] Start: 12-06-2003 ADVANCE DIRECTIVE DISCUSSION ADVANCE DIRECTIVE DISCUSSION [facility] Start: 1988 SHINGRIX VACCINE (1 of 2) SHINGRIX VACCINE (1 of 2) [facility] Start: 1957 SHINGRIX VACCINE (1 of 2) SHINGRIX VACCINE (1 of 2) [facility] Start: 1957 Urine microalbumin profile DTAP,TDAP,TD (1 - Tdap) [facility] Start: 1948 3 comp foot exam completed DIABETIC FOOT EXAM [facility] Start: 1948 Hepatitis B screening URINE ALBUMIN:CREATININE RATIO [facility] Start: 1948 Hepatitis C antibody, confirmatory test DILATED RETINAL EXAM [facility] Start: 12-06-1943 Hemoglobin A1c/Hemoglobin.total in Blood HBA1C [facility] BONE MARROW ANALYSIS [facility] Work Phone: Comment on above: Ordered: 04/25/2022 BONE MARROW CHROMOSO ME ANAL [facility] Work Phone: Comment on above: Ordered: 04/25/2022 CBC W Auto Different ial panel - Blood CBC + DIFF Lab Routine Myelodysplastic syndrome (HCC) CRF (chronic renal failure), stage 4 (severe) (HCC) Anemia of chronic renal failure, stage 4 (severe) (HCC) 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 transfusions 01/21/2022 1:47 PM T [facility] Work Phone: CBC W Auto Different ial panel - Blood CBC + DIFF Lab Routine Myelodysplastic syndrome (HCC) CRF (chronic renal failure), stage 4 (severe) (HCC) 02/15/2022 1:31 PM EDT [facility] Work Phone: CBC W Auto Different ial panel - Blood CBC + DIFF Lab Routine Myelodysplastic syndrome (HCC) CRF (chronic renal failure), stage 4 (severe) (HCC) Ordered: 04/25/2022 [facility] Work Phone: Comment on above: Ordered: 04/25/2022 CBC W Auto Different ial panel - Blood CBC + DIFF Lab Routine Myelodysplastic syndrome (HCC) CRF (chronic renal failure), stage 4 (severe) (HCC) 05/27/2022 1:47 PM [employer] [facility] Work Phone: End: 08-13-2023 CBC W Auto Differential panel - Blood CBC + DIFF Lab Routine 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 loss MDS (myelodysplastic syndrome) (HCC) Anemia of chronic renal failure, stage 4 (severe) (HCC) 2x per week for 100 Occurrences starting 08/13/2022 until 08/13/2023 [facility] Work Phone: Comment on above: 2x per week for 100 Occurrences starting 08/13/2022 until 08/13/2023 End: 08-13-2023 Comprehensive metabolic 2000 panel - Serum or Plasma COMP METABOLIC PANEL Lab Routine 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 loss MDS (myelodysplastic syndrome) (HCC) Anemia of chronic renal failure, stage 4 (severe) (HCC) 2x per week for 100 Occurrences starting 08/13/2022 until 08/13/2023 [facility] Work Phone: Comment on above: 2x per week for 100 Occurrences starting 08/13/2022 until 08/13/2023 DNA EXTRACTION BONE MARROW (BUFFY COAT) [facility] Work Phone: Comment on above: Ordered: 04/25/2022 FLOW CYTOMETRY BONE MARROW HOLD (BMHOLD) FLOW CYTOMETRY BONE MARROW HOLD (BMHOLD) Lab Routine Myelodysplastic syndrome (HCC) CRF (chronic renal failure), stage 4 (severe) (HCC) Ordered: 04/25/2022 [facility] Work Phone: Comment on above: Ordered: 04/25/2022 FLT3 ITD HN [facility] Work Phone: Comment on above: Ordered: 04/25/2022 MYELOID NGS PANEL NATALIE NE MARROW [facility] Work Phone: Comment on above: Ordered: 04/25/2022 MYELOID NGS PANEL NATALIE NE MARROW [facility] Work Phone: Comment on above: Ordered: 04/25/2022 MYELOPROLIFERATIVE NEOPLASM PANEL MARROW MYELOPROLIFERATIVE NEOPLASM PANEL MARROW Lab Routine Myelodysplastic syndrome (HCC) CRF (chronic renal failure), stage 4 (severe) (HCC) Ordered: 04/25/2022 [facility] Work Phone: Comment on above: Ordered: [facility]25/[facility] Immun[facility] Immunization Date Immunization Notes Care Provider Pierce dorantes 05-20-2022 influenza virus vacc ine, unspecified formulation Álvaro Barton [facility] 05-20-2022 influenza, high-dose , quadrivalent vaccine (FLUZONE HIGH DOSE QUADRIVALENT) Asher Hummel MD Work Phone: [facility] 06-29-2021 SARS-CoV-2 (COVID-19 ) mRNA-1273 vaccine Álvaro Barton [facility] 05-02-2021 influenza virus vacc ine, unspecified formulation Álvaro Barton [facility] 05-02-2021 influenza, high-dose , quadrivalent vaccine (FLUZONE HIGH DOSE QUADRIVALENT) Chair Owens Work Phone: [facility] 09-25-2020 COVID-19 vaccine, fu ll dose (MODERNA) Chair Owens Work Phone: [facility] 09-16-2020 COVID-19 vaccine, ag e 12+ yr (PFIZER-BIONTECH - PURPLE TOP) Chair Owens Work Phone: [facility] 09-14-2020 COVID-19 vaccine, fu ll dose (MODERNA) Chair Owens Work Phone: [facility] 08-28-2020 COVID-19 vaccine, fu ll dose (MODERNA) Chair Owens Work Phone: [facility] 08-25-2020 COVID-19 vaccine, ag e 12+ yr (PFIZER-BIONTECH - PURPLE TOP) Chair Owens Work Phone: [facility] 08-17-2020 COVID-19 vaccine, fu ll dose (MODERNA) Chair Owens Work Phone: [facility] 06-23-2019 influenza virus vacc ine, unspecified formulation Álvaro Barton [facility] 06-23-2019 Seasonal, quadrivale nt, recombinant, injectable influenza vaccine, preservative free Chair Roman Work Phone: [facility] 05-10-2019 influenza virus vacc ine, unspecified formulation Álvaro Barton [facility] 05-10-2019 influenza, seasonal, injectable Chair Roman Work Phone: [facility] 05-28-2018 influenza virus vacc ine, unspecified formulation Álvaro Barton [facility] 05-28-2018 influenza, high dose seasonal, preservative-free Chair Roman Work Phone: [facility] 06-18-2015 influenza virus vacc ine, unspecified formulation Álvaro Barton [facility] 06-18-2015 influenza, seasonal, injectable, preservative free Chair Nodaway Work Phone: [facility] 05-08-2014 influenza virus vacc ine, unspecified formulation Álvaro Barton [facility] 05-08-2014 influenza, seasonal, injectable, preservative free Chair Nodaway Work Phone: [facility] 05-08-2014 pneumococcal polysaccharide vaccine, 23 valent Chair Roman Work Phone: [facility] 05-23-2013 influenza virus vacc ine, unspecified formulation Álvaro Barton [facility] 05-23-2013 influenza, seasonal, injectable Chair Nodaway Work Phone: [facility] 06-27-2005 influenza virus vacc ine, unspecified formulation External Provider [facility] Work Phone: 07-13-2002 influenza virus vacc ine, unspecified formulation External Provider [facility] 07-13-2002 pneumococcal polysaccharide vaccine, 23 valent External Provider [facility] Payers Date Payer Category Payer Medicare [id number] 2021 Medicare MMO MEDICARE MMO MEDADVANTAGE PPO [id number] 2021-Present [phone] [address] [place] [address] PPO [id number] 2021 Medicare MMO MEDICARE MMO MEDADVANTAGE PPO [id number] 2021-Present [phone] [address] [place] [address] PPO [id number] 2019 Medicare AETNA MEDICARE A ETNA MEDICARE PPO [id number] 2019-Present PPO [id number] 2017 Private Health Insurance [id number] Unknown [id number] 1938 Unknown [id number] 2.16.840.1.095216.3.579 .2.196 1938 Unknown [id number] 2.16.840.1.219760.3.579 .2.196 1938 Unknown [id number] 2.16.840.1.410847.3.579 .2.196 1938 Unknown [id number] 2.16.840.1.097581.3.579 .2.196 1938 Unknown [id number] 2.16.840.1.985656.3.579 .2.647 1938 Unknown [id number] 2.16.840.1.539792.3.579 .2.593 1938 Unknown [id number] 2.16.840.1.254274.3.579 .2.593 1938 Unknown [id number] 2.16.840.1.480087.3.579 .2.593 1938 Unknown [id number] 2.16.840.1.469682.3.579 .2.593 1938 Unknown [id number] 2.16.840.1.477585.3.579 .2.593 1938 Unknown [id number] 2.16.840.1.243358.3.579 .2.593 1938 Unknown [id number] 2.16.840.1.330041.3.579 .2.593 1938 Unknown [id number] 2.16.840.1.877199.3.579 .2.593 1938 Unknown [id number] 2.16.840.1.410969.3.579 .2.593 1938 Unknown [id number] 2.16.840.1.795119.3.579 .2.593 1938 Unknown [id number] 2.16.840.1.473413.3.579 .2.593 1938 Unknown [id number] 2.16.840.1.641682.3.579 .2.593 1938 Unknown [id number] 2.16.840.1.774047.3.579 .2.593 1938 Unknown [id number] 2.16.840.1.417489.3.579 .2.593 1938 Unknown [id number] 2.16.840.1.443421.3.579 .2.593 1938 Unknown [id number] 2.16.840.1.844725.3.579 .2.593 1938 Unknown [id number] 2.16.840.1.821948.3.579 .2.593 1938 Unknown [id number] 2.16.840.1.998391.3.579 .2.593 1938 Unknown [id number] 2.16.840.1.690695.3.579 .2.593 1938 Unknown [id number] 2.16.840.1.770459.3.579 .2. 1938 Unknown [id number] 2.16.840.1.669697.3.579 .2. 1938 Unknown [id number] 2.16.840.1.214586.3.579 .2. 1938 Unknown [id number] 2.16.840.1.170583.3.579 .2. 1938 Unknown [id number] 2.16.840.1.604103.3.579 .2 1938 Unknown [id number] 2.16.840.1.819275.3.579 .2 1938 Unknown [id number] 2.16.840.1.843975.3.579 .2 1938 Unknown [id number] 2.16.840.1.456607.3.579 .2 1938 Unknown [id number] 2.16.840.1.362875.3.579 .2 1938 Unknown [id number] 2.16.840.1.115686.3.579 .2 1938 Unknown [id number] 2.16.840.1.750353.3.579 .2 1938 Unknown [id number] 2.16.840.1.748410.3.579 .2 1938 Unknown [id number] 2.16.840.1.669023.3.579 .2 1938 Unknown [id number] 2.16.840.1.565071.3.579 .2 1938 Unknown [id number] 2.16.840.1.973078.3.579 .2.727 1938 Unknown [id number] 2.16.840.1.666469.3.579 .2.727 1938 Unknown [id number] 2.16.840.1.013054.3.579 .2.727 1938 Unknown [id number] 2.16.840.1.667392.3.579 .2.72 1938 Unknown [id number] 2.16.840.1.291705.3.579 .2.72 1938 Unknown [id number] 2.16.840.1.665558.3.579 .2.727 1938 Unknown [id number] 2.16.840.1.504267.3.579 .2.72 1938 Unknown [id number] 2.16.840.1.343107.3.579 .2.72 Social History Date Type Detail Facility Tobacco smoking stat [facility] Unknown if ever smoked [facility] Start: 1940 Sex Assigned At Not on file [facility] Exposure to SARS-CoV -2 (event) Unable to assess [facility] Start: 05-29-2020 End: 03-10-2023 Tobacco smoking status FLIS Ex-smoker [facility] Comment on above: quit 1993 End: 07-28-1994 History of tobacco use Current smoker [facility] End: 07-28-1994 History of tobacco use Pipe Smoker [facility] Start: 05-29-2020 End: 03-11-2022 Tobacco use and exposure Smokeless tobacco non-user [facility] Start: 10-15-2021 End: 11-20-2022 Alcohol intake Ex-drinker (finding) [facility] Start: 10-05-2021 End: 07-01-2022 Exposure to SARS-CoV-2 (event) Not sure [facility] History of tobacco use Passive smoker [facility] Sex Assigned At Male [facility] Medical Equipment Procedure Code Equipment Code Equipment Origin al Text Equipment Identifier Dates Start: 04-07-2020 See Instructions , One touch ultra blue test strips Use as directed to test sugars once a day Start: 03-10-2023 Clinical Notes 10-15-2021 to 07-16-2023 Telephone Encounter - Samira Sheldon MA - 12/31/2022 10:02 AM EDTTelephone Encounter - Angle Kamara RN - 11/20/2022 4:43 PM EDTTelephone Encounter - Ada Perez - 11/20/2022 4:28 PM EDT Note Date & Type Note Facility 07-16-2023 Note [id number] [facility] 03-14-2023 Note [place] [facility] - [facility] Subjective Sandip Broussard is a 82 y.o. year old male patient being seen for Follow-up (6 MONTH FOLLOW UP ) Patient Active Problem List Diagnosis Arteriolar nephrosclerosis Essential hypertension, benign Benign prostatic hyperplasia Bradycardia Abnormal stress test Chronic kidney disease, stage 3 (CMS/HCC) Chronic renal impairment Congenital cystic disease of liver CAD (coronary artery disease) Disorder of prostate Edema GERD (gastroesophageal reflux disease) Gout Polyp of colon Hyperlipidemia Obesity Sleep apnea Diabetes mellitus (CMS/HCC) PVC (premature ventricular contraction) Nonrheumatic mitral valve regurgitation Permanent atrial fibrillation (CMS/HCC) Chronic systolic heart failure (CMS/HCC) History of gastrointestinal bleeding Epistaxis 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) Status post coronary angioplasty Angina pectoris (CMS/HCC) Boil of penis Bone marrow failure (CMS/HCC) GIB (gastrointestinal bleeding) 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 loss 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 transfusions Kidney cysts Malignant neoplasm of prostate (CMS/HCC) MDS (myelodysplastic syndrome) (CMS/HCC) Microscopic hematuria Mixed conductive and sensorineural hearing loss of left ear with restricted hearing of right ear Nonspecific abnormal results of liver function study Pulmonary HTN (CMS/HCC) Superficial folliculitis Family History Problem Relation Name Age of Onset Hypertension Mother Stroke Father Breast cancer Sister Social History Tobacco Use Smoking status: Former Types: Cigarettes Smokeless tobacco: Never Substance Use Topics Alcohol use: Not Currently Drug use: Never HPI Mr Broussard is seen in follow up. He is a 82-year-old man with a complex prior medical history including coronary artery disease status post stenting in the past [TIFFANY to the LAD and then to the RCA on 12/08/2015], currently permanent atrial fibrillation, chronic diastolic heart failure, recurrent episodes of gastrointestinal and nosebleeding, recently resumed on low-dose Eliquis 2.5 mg twice daily due to age and renal dysfunction. He also has moderately severe mitral regurgitation based on the echocardiogram performed in June 2020 at [facility]. Previously he sustained GI bleeding and underwent investigation of the [facility] clinic. He recovered from that. He was started back on low-dose Eliquis 2.5 mg twice daily. He also has recurrent significant episodes of epistaxis and underwent prior cauterization by ENT. He has had repeated episodes in the past year. Those episodes are usually very significant consequence. They last long recently necessitated stopping Eliquis. After last visit of 07/31/2020 I proceeded with a transesophageal echocardiogram that confirmed the presence of moderately severe mitral regurgitation. There was moderate tricuspid regurgitation. At a prior visit I reduce spironolactone to 25 mg once daily. And at last visit I added amlodipine 10 mg daily to control blood pressure. Previously his lisinopril, spironolactone and terazosin were stopped due to hypotension. He is not taking any antiplatelet or anticoagulation medications due to bleeding and epistaxis. He has not had any issues. He continues to follow-up with hematology for treatment of his pancytopenia. He does not want to have any invasive procedures. On 11/18/2021 he was admitted to [facility] with decompensated heart failure. In addition he was found to have type II NY. He underwent diuresis. Right heart catheterization on 11/21/2021 showed elevated filling pressures. Transesophageal echocardiogram showed moderately reduced systolic function with an ejection fraction of 30 to 35% and severe mitral regurgitation. Since last visit he has been doing about the same. He continues to be on oxygen therapy continuously. 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 this was stopped. He is currently under treatment with a new forest fire equipment operator and his anemia is being managed by regular blood transfusions. One of the main issues is fluid overload when he receives a blood transfusion. At 1 point in time he was referred to hospice care. He had home hospice service but he fired them. He and his were not happy with that care. His did not want his medications to be stopped. She is continuing his medications as prescribed. He says he feels better when his blood count is up. He has shortness of breath on exertion, NYHA class IIIb. He is on oxygen all the time. Review of Systems Respiratory: Positive for shortness of breath. All other systems reviewed and are negative. Objective Visit Vitals BP (!) 110/44 (BP Location: Left arm, Patient Position: Sitting, BP Cuff Si (more content not included)... [facility] 02-26-2023 Hospital Discharge instructions Follow Up Care 02/26/2023 08:42:11 With:Jose Lu Address: [facility] [address] [place] [phone] Business (1) When: Unknown Comments:Labs todayFecal occult stool testingUrinalysis with micro todayWeekly CBC with differential and type and cross and transfuse if hemoglobin less than 8.0 at [facility].CMP and LDH every [address] Mercer for palliative management.Return in 6 weeks. [facility] 12-31-2022 Miscellaneous Notes Patient notified to make appt for refill documented in this encounter [facility] 11-20-2022 Note [facility] 11-20-2022 Miscellaneous Notes Concha @ [facility] notified and verbalizes understanding. Angle Kamara RN Images from the original note were not included. Per Dr. Hummel's check out note this afternoon: All appointments were cancelled. Images from the original note were not included. Bobbi Mehta RPh You; Wilfred Martinez APRN.FUNCTIONAL TESTER [employer]WRIT[employer]; Asher Hummel MD; Roman Clerical Pool; [facility] Pool 14 minutes ago (3:54 PM) LAN Asher, Do they realize the cost of Luspatercept? luspatercept-aamt 25 mg Solr [[id number]] Amount to Base Charge on: 125 mg Package: 1 Each Vial ([id number]) Charge Dropped: [phone] Bobbi: Concha Avendaño @ [facility] notified of cost and frequency of treatment. Gives the ok to proceed. States, That will be fine. Angle Kamara RN FYI: Per Dr Hummel, pt does not need to come in today since he is now enrolled w/ hospice. Spoke w/ pt's spouse who is upset w/ the suggestion. States that they were advised per hospice that he could continue his normal routine of blood work, transfusions, and treatment. Explained to spouse that normally when pt's are on hospice they do not continue chemotherapy. Spouse insists that hospice told them otherwise. Call placed to [facility]. Spoke w/ Concha, who confirms spouse's statement. Per Concha, they will cover all lab, transfusions, and treatment since Dr Hummel feels the pt has a less than 6 months prognosis w/ or w/o treatment. Pt's spouse notified of the above and verbalizes understanding. Will be in this afternoon as scheduled. Pharmacy/Clerical: FYI...... Angle Kamara RN documented in this encounter [facility] 11-20-2022 Instructions Asher Hummel MD - 11/20/2022 4:13 PM EDT Continue with Hospice Cancel treatment appointments Cancel appointments with [facility] RTC PRN Ok to get PRN transfusions based on symptoms. documented in this encounter [facility] 11-20-2022 History of Present illness Narrative Images from the original note were not included. 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 Recent hospitalization for respiratory failure and pneumonia. Long discussion with him and his Lissette regarding end-of-life care and Hospice. As well as goals of therapy. OBJECTIVE: BP 98/58 Pulse (!) 59 Temp 36.4 C (97.5 F) (Temporal) Resp 18 Ht 166.1 cm (5' 5.39 ) Wt 95.4 kg (210 lb 6.4 oz) SpO2 93% BMI 34.59 kg/m Pleasant elderly man in a wheelchair with oxygen. Feels comfortable. WBC (k/uL) Date Value 11/20/2022 6.41 RBC (m/uL) Date Value 11/20/2022 2.43 (L) Hemoglobin (g/dL) Date Value 11/20/2022 7.9 (L) Hematocrit (%) Date Value 11/20/2022 25.0 (L) MCV (fL) Date Value 11/20/2022 102.9 (H) MCH (pg) Date Value 11/20/2022 32.5 MCHC (g/dL) Date Value 11/20/2022 31.6 RDW-CV (%) Date Value 11/20/2022 25.0 (H) Platelet Count (k/uL) Date Value 11/20/2022 121 (L) MPV (fL) Date Value 11/20/2022 15.0 (H) Glucose (mg/dL) Date Value 11/20/2022 168 (H) BUN (mg/dL) Date Value 11/20/2022 50 (H) Creatinine (mg/dL) Date Value 11/20/2022 1.64 (H) Sodium (mmol/L) Date Value 11/20/2022 138 Potassium (mmol/L) Date Value 11/20/2022 3.8 Chloride (mmol/L) Date Value 11/20/2022 91 (L) CO2 (mmol/L) Date Value 11/20/2022 37 (H) Protein, Total (g/dL) Date Value 11/20/2022 7.5 Albumin (g/dL) Date Value 11/20/2022 3.6 (L) Calcium, Total (mg/dL) Date Value 11/20/2022 9.4 Alkaline Phosphatase (U/L) Date Value 11/20/2022 184 (H) Bilirubin, Total (mg/dL) Date Value 11/20/2022 0.7 AST (U/L) Date Value 11/20/2022 46 (H) ALT (U/L) Date Value 11/20/2022 76 (H) Cholesterol, Total (mg/dL) Date Value 06/27/2005 153 Triglyceride (mg/dL) Date Value 06/27/2005 144 ASSESSMENT: 1) MDS - refractory disease PLAN: Continue with Hospice Cancel treatment appointments Cancel appointments with [facility] RTC PRN Ok to get PRN transfusions based on symptoms. I spent a total of 30 minutes on the date of the service which included preparing to see the patient, [id number] patient care, completing clinical documentation, obtaining and/or reviewing separately obtained history, performing a medically appropriate examination, counseling and educating the patient/family/caregiver, communicating with other HCPs (not separately reported), independently interpreting results (not separately reported), communicating results to the patient/family/caregiver, and care coordination (not separately reported) Asher Hummel MD, CPE Hematology and Oncology Services Provided at: [place], [place] . documented in this encounter [facility] 11-20-2022 Nurse Note Patients would like to know if it is normal to get a blood transfusion in 4 hours? It used to be 8 hours now they are pushing it thru faster. Also could that result in fluid overload? Opal Campbell MA documented in this encounter [facility] 11-19-2022 Miscellaneous Notes Concha @ [facility] notified. Copy of this encounter along w/ office notes faxed to [phone]. Angle Kamara RN Yes - I agree Brynn: Pt was discharged from [facility] to home w/ [facility]. Hospice calls today regarding pt's transfusion needs. Notes that they can continue transfusing for symptom management if you believe that w/ or w/o treatment the pt would have a less than 6 month prognosis. Do you agree? Angle Kamara RN documented in this encounter [facility] 11-06-2022 Miscellaneous Notes Faxed orders to Michael scheduling and also left a message. Ada Perez Preliminary CBC shows hgb of 6.5. Transfusion orders written per Dr Hummel. Pt's spouse notified and verbalizes understanding. Orders given to MARII Caballero, for scheduling. Angle Kamara RN documented in this encounter [facility] 11-06-2022 Miscellaneous Notes Patient came in for lab draw this afternoon per spouse they did not want to stay wait for results, requested to have nurse call them with results. Please call patient and spouse at [phone]. Thank you. Emily Horan Pss documented in this encounter [facility] 10-30-2022 Note [facility] 10-24-2022 Miscellaneous Notes Patient has been scheduled for transfusion tomorrow @ [place] @ 8 am. He will need to go today for TSC. Call placed to patient/spouse no answer. Left detailed message with this information on voicemail. Ada Perez Pt's spouse calls requesting yesterday's CBC results. Hgb 7.4. Informed spouse that we would be ordering a blood transfusion to be done @ [facility]. Spouse verbalizes understanding. Transfusion orders signed per Dr Hummel and given to MARII Piedra, for scheduling. Angle Kamara RN documented in this encounter [facility] 10-23-2022 Note HNO ID: [id number] Author: Lexi Bowser RN Service: ? Author Type: Registered Nurse Type: Progress Notes Filed: 10/23/2022 3:32 PM Note Text: [facility] results and pt had already left. [facility] 10-23-2022 History of Present illness Narrative Went to lobby to inform pt of lab results and pt had already left. documented in this encounter [facility] 10-17-2022 Miscellaneous Notes [facility] Lab calls regarding transfusion order written on 10/16/22. Notes the H&H box must be marked. Per lab, the order they have has the box crossed out and NO marked next to it. Requesting we send a new order w/ the H&H box clearly marked. New order received from Dr Hummel and faxed to [facility] @ [phone]. Angle Kamara RN documented in this encounter [facility] 10-16-2022 Note [facility] 10-16-2022 History of Present illness Narrative Pt provided with CBC result from today per request. HgB 6.4. Transfusion orders rec'd from Dr Arias. Pt to PSS for scheduling of PRBC'S. Fide Puente RN documented in this encounter [facility] 10-15-2022 Nurse Note Clinical questionnaires incomplete due to Patient declined to complete or answer questions with nurse Additional intake questions: Has the patient had fever, nausea, vomiting, diarrhea, constipation, fatigue for > 1 week? Yes, fatigue and Provider Notified Does the patient have a decreased appetite? Yes Does patient want to see a Raker Buffing Wheel? No (yes to any of above refer patient to schedulers for dietitian appointment) ) Does patient have any new or increased numbness or tingling of extremities? No Is patient interested in fertility information? No Does patient need any prescription refills? No Does patient have an advanced directive in place? No, Patient referred to [facility] documented in this encounter [facility] 10-15-2022 Note [facility] 10-15-2022 History of Present illness Narrative [place] [address] [place] CLINIC NOTE NAME: SANDIP BROUSSARD [facility] #: [id number] DATE: 10/15/2022 AGE: 81 PHYSICIAN: Elysia Esposito M.D. The patient is an 81-year-old gentleman with myelodysplastic syndrome. He presents today for ongoing followup. ECOG PERFORMANCE STATUS: Two. INTERVAL HISTORY: Since his last visit here, the patient was initiated on treatment with luspatercept. Cycle 1, day #1 was August 28, 2022. Of note, there were initially some issues with insurance approval. He has noted his blood counts have not improved significantly since starting luspatercept. However, he has only received 3 doses so far and his dose was just recently increased with cycle 3. His hemoglobin was 7.8 yesterday, however, he deferred blood since he did not want to get 1 unit of blood (he wanted 2 units which he could not receive). He continues his followup with Dr. Hummel. He and his had multiple questions today regarding his overall prognosis, overall life span, and plan of care, which we reviewed. Physical exam-- vitals are reviewed and are in epic. General: frail appearing gentleman. The rest of the physical exam was deferred LABORATORY VALUES: Reviewed and are in Epic. IMPRESSION AND PLAN: I have had an extensive discussion with the patient and his . 1. We have discussed that the prognosis of his MDS is difficult to say. His other comorbidities may play into this prognosis. With his last bone marrow, he still did not have advanced disease. 2. As long as the patient continues to benefit from a quality of life standpoint, I would recommend continued transfusion support. 3. We discussed that we would make final decisions about continuing luspatercept or not after he has reached the full dose. He would be able to go to the full dose on November 20, 2022, and we should be able to make decisions after he has had two doses of that. We did discuss the possibility of using lenalidomide for treatment if luspatercept doesn't work. All of their questions were answered. He will otherwise return to clinic in 2 months. Elysia Esposito M.D. [id number] / documented in this encounter [facility] 10-09-2022 Note [facility] 10-02-2022 Note [facility] 10-02-2022 Miscellaneous Notes 1 unit packed RBC's at [facility] 10-03-22 11am. Orders were faxed and they called the patient's documented in this encounter [facility] 09-25-2022 Miscellaneous Notes Pt's spouse calls requesting the results of his CBC from today. Hgb 6.9. Transfusion ordered per Dr Hummel. Spouse notified and will go to [facility] for type and screen. Transfusion orders given to Tello for scheduling. Angle Kamara, RN documented in this encounter [facility] 09-18-2022 Note [facility] 09-18-2022 Instructions Asher Hummel MD - 09/18/2022 1:56 PM EST Continue luspatercept SQ today and q 3 weeks B12 shot today every 3 weeks Check CBC every Friday - stay for results Keep Hgb > 8 Check CMP every 3 weeks Recommended ensure/boost for increased calories. RTC in 3 weeks - khai Obando documented in this encounter [facility] 09-18-2022 History of Present illness Narrative Images from the original note were not included. NAME: Sandip Broussard CLINIC NO.: [id number] DATE OF SERVICE: September 18, 2022 ([facility] Some elements in this clinic note that are critical to medical decision making have been carefully reviewed and included from a prior clinic note dated: August 28, 2022 ([facility]) Referring Provider: Dr. Flash Pearl Additional Clinicians involved in Sandip Broussard's care: Dr. José Luis Velasquez, Dr. Oumou Wade, Dr. Karen Esposito CC: MDS ASSESSMENT: 81 year old year old man with MDS, stage 4 chronic kidney disease and iron deficiency anemia d/t GI blood loss (seen on capsule endoscopy) and epistaxis. Was receiving high dose EPO every 2 weeks with periodic iron infusions. With persisting cytopenia we started him on Vidaza low dose to see if we could positively impact his pancytopenia and reduce his fatigue as well as his Epo usage. Unfortunately he suffered an acute NY 11/23/2021 and also developed another GI bleed. He was transfused, and medically managed after catheterization. 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 He was requiring transfusion of PRBCs every 3-4 weeks and there was question of if he was responding to Vidaza. He was seen by Dr. 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 Unfortunately treatment is getting overwhelming for him and does not appear to be working. Plan was to switch to luspateracept, which has now gotten insurance approval. NGS Heme: TET2 p.?, [id number], c.4182+1G>A VAF: 44.5% TET2 p.H3068Q, [id number], c.5618T>C VAF: 40% ZRSR2 p.R30Vfs*8, NM_005089.3, c.88delC VAF: 91.1% And the following variant(s) of uncertain significance: BCORL1 p.R72W [id number]: c.214C>T VAF: 100% PLAN: Continue luspatercept SQ today and q 3 weeks B12 shot today every 3 weeks Check CBC every Friday - stay for results Keep Hgb > 8 Check CMP every 3 weeks Recommended ensure/boost for increased calories. RTC in 3 weeks - see Wilfred TREATMENT TO DATE: 5. Luspatercept q 3 weeks 4. 05/20/2022 - 08/28/2022 Low dose Decitabine weekly failed 3. 07/09/2021 - 04/08/2022: Vidaza D1-5 q 28. 2. Retacrit 80,000 units every week. 1. Intermittent IV Iron. HPI: Updated Visit, September 18, 2022: Continues on Luspatercept. No need for transfusion this week. Feeling pretty good today. Updated Visit, August 28, 2022: Don returns with his Lissette - they were kind enough to share their 50th anniversay with us. He has been approved for Luspatercept. Obtained consent and education. Will proceed every 3 weeks. Transfused last (6 days) is 8.1 today Updated Visit, August 21, 2022: Sandip Broussard returns for follow-up and continued treatment with decitabine. There has been no significant changes since his last visit. He is wearing home oxygen at 3 L via nasal cannula. His oxygen levels remain in the low 90s. He had 2 units of PRBCs on 08/16/2022. He denies any signs of bleeding. He denies fevers, chills, night sweats and signs/symptoms of infection. He has no new complaints today. Updated Visit, August 14, 2022: Sandip Broussard returns for follow-up and decitabine. Beginning this Friday he developed increasing shortness of breath. He states that at home on 2 L via nasal cannula his oxygen level has been running anywhere from 85% to 93%. He states that the reading varies by finger. He denies cough. No fevers, chills, night sweats or signs/symptoms of infection. He denies bleeding. He tends to bruise easily. He has also noticed a decrease in his appetite. His last blood transfusion with 1 unit of PRBCs was on 08/09/2022. He and his will celebrate 50 years of marriage on 08/23/2021. Updated Visit, August 07, 2022: Lloyd returns and has decreased Hgb/Hct and will send for transfusion later this week. No updates on current plan of care. Discussed the unfortunate reality of his prognosis and potential for Luspatercept to impact change for which there is emerging evidence. Remains hopefull that treatment gets approved. Updated Visit, July 30, 2022: Lloyd returns with his today. No changes. Still awaiting luspateracept approval. Still requiring 3 Liters of Oxygen. No fever, chills, cough or shortness of breath. Appetite declined some and he has lost a few pounds. No vomiting. He just doesn't get hungry. Updated Visit, July 23, 2022: Lloyd returns with his Nicki. They had a pretty bad week. Nicki - bladder cancer Pipes froze Wasn't too happy with prognosis laid out by Dr. Esposito. Dr. Esposito and I spoke about his treatment plan and will change him over to luspatercept as retacrit is not working and decitabine also is not improving his transfusion need. He will need a transfusion this week. Updated Visit, July 15, 2022: Lloyd is back with Nicki. He has had no real change clinically. Has to split his treatment this week. Will transfuse due to logistics for his . Updated Visit, July 08, 2022: Lloyd returns for follow up. No new symptoms. His shortness of breath remains the same. Did not have PRBCs last week, however today his hgb is 7.4. Denies any fevers, chills, nausea, vomiting cough or shortness of breath. Has appointment with Dr. Esposito next week. Updated Visit, July 01, 2022: Stable No significant new symptoms - dyspnea is unchanged. Was transfused last week with 2 units with Hgb 8.1 - today is 8.3. Will hold off for [address] Esposito on 07/16/2022 Updated Visit, June 24, 2022: Sandip Broussard returns for follow-up and treatment. He remains on weekly decitabine on Mondays and Tuesdays. He is tolerating treatment well. He denies fevers, chills, night sweats and signs/symptoms of infection. He denies any abnormal bleeding. He does bruise easily. He is having fatigue. He notices himself sleeping more. He has chronic unchanged shortness of breath. Overall, he is doing well. Updated Visit, June 17, 2022: Lloyd returns with his lissette. His left deltoid improving after his decitabine shot 2 weeks ago. Skin had pulled off with it. Still reddened. Hgb 8.4 today Last transfusion was on 06/12/2022. Overall feels pretty good. Exam of left posterior upper arm is with slight erythema and induration with superficial and shallow ulcer of skin 0.5 cm diameter. Area of induration is 1.5 cm diameter. Updated Visit, June 10, 2022: On antibiotic, cefuroxime 500mg BID for ear infection per dr pearl since 05/29/2022, Rafael hartmann. He stopped it early, but his ear started bothering him again so he restarted it. Denies any fevers, chills. Does have an open area on his left deltoid following his dacogen injection from 06/04/22. No drainage. Still with dyspnea and dizziness. Updated Visit, June 03, 2022: Lloyd is in a wheelchair today and reports getting light headed and dyspneic with standing and light activity. Hgb 6.5 today and will need transfusions this week with recheck on Friday. Continue current plan for low dose Decitabine. Will watch platelet counts and monitor neutropenia. Updated Visit, May 20, 2022: Lloyd returns with his Nicki. He was transfused 2 weeks ago. Presents to start dacogen today. Feels weak today and will need transfusion support. Education and consent done and obtained today. Updated Visit, May 06, 2022: Reviewed bone marrow results and labs with them. Will discuss with my colleague Dr. Esposito with respect to starting Dacogen. 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 Will need retacrit today and weekly as well as PRBC transfusion Updated Visit, April 29, 2022: Lloyd returns and has ongoing cytopenias. Awaiting bone marrow biopsy results. Will continue retacrit weekly. No need for transfusion today. Updated Visit, April 22, 2022: Patient saw Dr. Esposito (recommendations are above). Feels about the same. Hgb today is 7.5 Bone marrow scheduled for 04/25/22 Updated Visit, April 08, 2022: Hgb 8.1 today after transfusion 5 days ago. Due to See Dr. Esposito next 04/18/2022 Will cancel Vidaza for now. Continue aranesp Maintain transfusion support. Updated Visit, March 11, 2022: Unfortunately Lloyd is not maintaining any response to single agent Vidaza and remains transfusion dependent. I spoke with him and his his about seeking an opinion downtown with our Leukemia group as well as Hospice. It was a tearfu meeting as lissette is significantly younger than Lloyd. Updated Visit, February 11, 2022: Patient received 2 units of PRBC on 02/05/22 for hgb of 6.8. Saw cardiology today no changes. Denies any fevers, chill, nausea or vomiting. Overall, other than his normal fatigue, he feels well. Updated Visit, January 14, 2022: Lloyd in good spirit returns to continue treatments for MDS. I think we are making some progress as we haven't had to transfuse him in 4 weeks. WBC counts always start low at the beginning of each cycle but after D5, improve significantly. Hasn't been transfused for 4 weeks - anticipate need this week. Using BiPap and can sleep in bed now. Updated Visit, December 17, 2021: Lloyd is 81 years old and returns with his Lissette in follow-up. He feels much better having had several units transfused and now has a hemoglobin of 10.2. We revisited the discussion of pursuing treatment versus hospice and he is still indeterminant. We discussed pursuing a few more cycles and then reconsidering at that time. He does have some evidence of improvement with improving white blood cell count as well as platelet count improvement. He feels really good following his transfusion and wishes to proceed. Updated Visit, November 29, 2021: Lloyd returns unfortunately had Afib and heart failure with AMI and significant MV regurg. Fatigued. Will consider Hospice. Hold treatment for now and reconsider in 3-4 weeks. Also recovering from pneumonia. Reviewed outside records. Updated Visit, October 25, 2021: Sandip Broussard returns for scheduled follow up. He states that he is feeling slow . He has shortness of breath all the time. He denies any dizziness. He denies any abnormal blood loss. Updated Visit, October 01, 2021: Lloyd is 80 years old and returns with his Lissette for treatment with low-dose Vidaza. He appears to be having some response with improving platelet counts. His only complaints are that of increased abdominal gas. He is otherwise doing well. Continue Retacrit and treatment as recommended. He is safe to proceed. Sees ENT next week No more nose bleeds after stopping Eliquis. Updated Visit, September 17, 2021: Sandip Broussard returns for scheduled follow-up. Since his last visit there has been no significant medical changes. He denies bleeding and abnormal bruising. He denies fevers, chills, night sweats and signs/symptoms of infection. Overall, he feels fairly well. Updated Visit, September 03, 2021: BP improved. Labs stable and platelets have recovered. Was transfused last week and feels better. Neutropenia is disease related and we will continue with treatment. Continue retacrit as Ordered. Transfuse periodically. Updated Visit, August 24, 2021: Lloyd returns today prior to Retacrit during his 2 weeks following Vidaza. Has been having some pain at the base of his skull and is having some dizziness. BP is low - stop Norvasc and Hytrin, and hold Aldactone for now. It is their anniversary today - 49! Updated Visit, August 06, 2021: Lloyd returns today for follow up and cycle 2 of vidaza. Feeling well. Ran out of his diuretic for a week and had some JANG. Was able to get his medications refilled and is feeling better now. No swelling, chest pain, dizziness, fever, chills or other concerning symptoms. Updated Visit, July 19, 2021: Sandip Broussard returns for follow-up. He received his first cycle of Vidaza 07/09/2021 through 07/13/2021. Overall, he tolerated treatment well without any side effects. He is doing well today and offers no new particular complaints. Updated Visit, July 09, 2021: Hasn't required transfusion since 06/2020. Still profoundly anemic despite adequate dosing of aranesp for CKD. Will proceed with low dose Vidaza. Reviewed plan and goals again. Updated Visit, May 31, 2021: EPO was increased to 80,000 units about 2 weeks ago. Feels the same. reports he still spends most of his day on the couch napping. Patient denies any bleeding. Does have diarrhea, which he has had for over 3 months. 2 loose stools a day. Afraid to go places because of the urgency a/w it. Patient denies bleeding. Does not want to see GI at this time. Has not taken anything for it. No new medications. Updated Visit, May 02, 2021: Lloyd returns with his Lissette and reports that he can't exert himself too much but can get out to the barn and doesn't get dizzy anymore. Still not responding as robustly to increased EPO, so will increase to 80k every 2 weeks. Updated Visit, March 07, 2021: Lloyd returns with his Lissette and was seen by Dr. Wade approximately 1 week ago from ENT. Patient was a little bit confused on instructions given and so I reviewed the recommendations and clarified for Lloyd exactly what his regimen should be. This includes stopping Eliquis as well as aspirin. He appears to be stable from a laboratory perspective but continues to have low platelets and generalized pancytopenia. We discussed again, the goal of his treatment and interventions to be palliative as he requested. He feels well today. Updated Visit, February 21, 2021: Nose bleed Friday- ER plugged it up but then went back on Friday hospitalized until this morning Still seeping blood. Operated on nose- surgery w/ Dr. Marshall Last fall in [place]. Has tranexamic acid at home. Requesting ENT referral at [facility]. He is dehydrated and not keeping up with fluids. Partition Setter is elevated exacerbating cause was likely letting his CPAP reservoir go dry. Ferritin is coming down. Updated Visit, January 10, 2021: Lloyd is here for follow up. After review of his chart, he has stage IV ckd and presented with pancytopenia, including significant anemia requiring transfusion due to GI bleeding and nose bleeds. 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 He has received IV iron in the past along with retacrit, which he is currently receiving every other week. Current goal is quality of life with the least amount visits. He did just have a nose bleed on Friday, and it didn't last long. He made his own plug and kept it in his nose for 24 hours and no additional bleeding. He is taking his eliquis one pill daily, but he held it the last two days due to the nose bleed. He is not on aspirin. Overall he feels well and offers no complaints of significant fatigue, shortness of breath, cough, fever, chills or signs of infections. Updated Visit, November 15, 2020: Sandip Broussard returns for follow-up. He remains on Retacrit 40,000 units every 2 weeks and is tolerating it well. Recently he has noticed pain in the back of his neck. He experienced this same pain when his hemoglobin was low in the past. He states that he takes Tylenol with improvement in the pain. He denies any signs of bleeding. He states that his bruising is better. He is still taking the Eliquis daily at the recommendation of his fashion model. Since stopping the aspirin he has not had any further nosebleeds. He denies fevers, chills, night sweats and signs/symptoms of infection. He has persistent exertional shortness of breath. Updated Visit, September 20, 2020: Lloyd is 79 and returns with his Lissette for discussion on his overall condition as well as his rec to have watchman for A-fib. However, our discussion reveals that he really doesn't want to do anything and that he also doesn't want to take full dose anticoagulation. I pressed him and verified that his goals were to focus on quality of life and get minimally involved in medical procedures. We will continue to monitor his counts and transfuse or give iron and retacrit as necessary, but minimize his follow ups. Updated Visit, August 23, 2020: Lloyd is 79 years old and returns with his Lissette today for multifactorial anemia. His GI bleed was finally found and addressed. They brought in a cake to share in their celebration of their anniversary and Nicki's birthday. He reports that he is no longer lightheaded. Still some fatigue. Now will need Aranesp replacement and iron x 1. He may need low dose dacogen in the future if he is unresponsive. Updated visit, July 26, 2020: Lloyd is 79 years old and returns with his Lissette today having had a capsule endoscopy which was positive for GI bleed. This was stopped and he is now recovering from his blood loss anemia. We will continue supporting him with IV iron as needed but for now we will hold off he will continue need B12 and folic acid. He still has underlying myelodysplasia and stage IV chronic kidney disease which is contributing to his anemia but Corine is not bleeding any longer. Updated Visit, July 03, 2020: Lloyd is 79 years old and returns with his Lissette again requiring additional transfusions because of significantly low hemoglobin. I reviewed his bone marrow biopsy with him which is consistent with myelodysplastic syndrome but he has ongoing melena that is highly suspicious for a GI bleed. To date his endoscopic work-up has been negative but he is due to have a capsule endoscopy that hopefully will reveal the cause of his cytopenias. He feels weak and is in a wheelchair today. Updated Visit, June 15, 2020: Conducted by telephone. Sandip Broussard is a 79 year old male seen for pancytopenia recently having had bone marrow biopsy that is most consistent with. 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 Hopefully his iron deficiency can be corrected and perhaps any evidence of GI bleeding can be attenuated. He sees gastroenterology next week. He may need transfusion support before the weekend even though he was just transfused his 17th unit 2 days ago. I reviewed his bone marrow biopsy results with him and his Lissette in some detail. His erythropoietin level is markedly elevated indicating that supplementation would not help and that his renal failure is not contributing to his anemia. Initial Visit, May 29, 2020: Sandip Broussard presents today Hematology and Oncology evaluation. He is a 79 year old male who is accompanied by his Lissette on urgent referral from Dr. Flash Pearl for pancytopenia, hemoglobin of 5 with both recent EGD and colonoscopy demonstrating no evidence of active bleeding but slight chronic gastritis. He also had several epistaxes as blood to the point of requiring transfusions causing lightheadedness and unsteadiness. Patient states he has had black stools since July 2019. So far extensive work-up has been unrevealing. He has had recent hospitalization and was released on 05/26/2020. Full work-up at that time revealed an adequate erythropoietin response despite elevated creatinine and stage III chronic kidney disease. However his white blood cell count remains suppressed as does his platelet count of less than 100,000. Indeed, his epistaxis may be the cause of his melanotic stools but warrants another look and additionally he will need a bone marrow biopsy. His coags are normal. His red blood cell indices only indicate hypochromasia and macrocytosis. Patient had a bleeding scan that was negative as well. REVIEW OF SYSTEMS Per HPI and otherwise negative by full review of organ systems. ECOG PERFORMANCE STATUS: 2 PHYSICAL EXAMINATION: Vitals: BP 126/43[recheck BP[ Pulse 71 Temp (Src) 97.7 (Temporal) Resp 18 Ht 5' 5.394 (1.66m) Wt 221 lb (100.2kg) SpO2 92[O2 @ 3L]% BMI 36.33 kg/(m^2). Body surface area is 2.15 meters squared. Exam limited to gross visualization where appropriate due to COVID-19. Gen.: This is an age-appropriate patient in no acute distress. Head: Appears atraumatic with no visible lesions. Eyes: Pupils equally round and reactive to light, extraocular muscles are intact. Neck: Supple. Mouth: Masked. Respiratory: Appears to be respiring comfortably. Neurologic: Nonfocal to gross visualization. Alert and oriented 3. Psychiatric: No evidence of inappropriate anxiety or depression. Skin: Visible areas of skin without rash, lesions, wounds or petechiae. ALLERGIES: ALLERGIES Allergen Reactions Bee Stings [Other] large hives, swelling at site Coreg [Carvedilol] Hives MEDICATIONS: ondansetron (ZOFRAN) 8 mg tablet Take 1 tablet by mouth every 8 hours as needed for nausea/vomiting. prochlorperazine (COMPAZINE) 10 mg tablet Take 1 tablet by mouth every 6 hours as needed. omeprazole (PRILOSEC) 40 mg capsule Take 40 mg by mouth once daily. bumetanide (BUMEX) 1 mg tablet Take 1 mg by mouth every morning. potassium chloride SR (MICRO-K) 10 mEq CR capsule Take 10 mEq by mouth once daily. FARXIGA 10 mg tablet Take 10 mg by mouth daily with breakfast. metoprolol succinate ER (TOPROL XL) 25 mg 24 hr tablet Take 25 mg by mouth once daily. spironolactone (ALDACTONE) 25 mg tablet Take 25 mg by mouth once daily. aspirin 81 mg chewable tablet CHEW 1 TABLET BY MOUTH EVERY DAY sucralfate (CARAFATE) 1 gram tablet Take 1 g by mouth four times daily. [facility] NASAL OINTMENT Apply to affected area twice daily. atorvastatin (LIPITOR) 20 mg tablet Take 1 tablet by mouth daily at bedtime. colchicine 0.6 mg tablet Take 0.6 mg by mouth as needed. As needed 1-2 times/week ONETOUCH DELICA PLUS LANCET 33 gauge glipiZIDE (GLUCOTROL) 5 mg tablet Take 5 mg by mouth once daily. ONETOUCH ULTRA BLUE TEST STRIP test strip cholecalciferol (VITAMIN D3) 1,000 unit tab tablet 1,000 Units once daily. Only taking 500 units lisinopril (ZESTRIL, PRINIVIL) 10 mg tablet Take 1 tablet by mouth once daily. Please resume this medication after PCP follow up LABORATORY VALUES: WBC (k/uL) Date Value 09/11/2022 2.25 (L) RBC (m/uL) Date Value 09/18/2022 2.51 (L) Hemoglobin (g/dL) Date Value 09/18/2022 8.0 (L) Hematocrit (%) Date Value 09/18/2022 25.3 (L) MCV (fL) Date Value 09/18/2022 100.8 (H) MCH (pg) Date Value 09/18/2022 31.9 MCHC (g/dL) Date Value 09/18/2022 31.6 RDW-CV (%) Date Value 09/18/2022 17.1 (H) Platelet Count (k/uL) Date Value 09/11/2022 62 (L) MPV (fL) Date Value 08/28/2022 14.7 (H) Glucose (mg/dL) Date Value 09/11/2022 205 (H) BUN (mg/dL) Date Value 09/11/2022 25 (H) Creatinine (mg/dL) Date Value 09/11/2022 1.34 (H) Sodium (mmol/L) Date Value 09/11/2022 140 Potassium (mmol/L) Date Value 09/11/2022 3.5 (L) Chloride (mmol/L) Date Value 09/11/2022 97 CO2 (mmol/L) Date Value 09/11/2022 32 (H) Protein, Total (g/dL) Date Value 09/11/2022 6.3 Albumin (g/dL) Date Value 09/11/2022 3.9 Calcium, Total (mg/dL) Date Value 09/11/2022 9.3 Alkaline Phosphatase (U/L) Date Value 09/11/2022 148 (H) Bilirubin, Total (mg/dL) Date Value 09/11/2022 1.2 AST (U/L) Date Value 09/11/2022 28 ALT (U/L) Date Value 09/11/2022 48 Cholesterol, Total (mg/dL) Date Value 06/27/2005 153 Triglyceride (mg/dL) Date Value 06/27/2005 144 DIAGNOSIS: (D46.9) MDS (myelodysplastic syndrome) (HCC) (primary encounter diagnosis) (D50.0) 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 loss (N18.4, D63.1) Anemia of chronic renal failure, stage 4 (severe) (HCC) PAST MEDICAL HISTORY Diagnosis Date Anemia Anemia of chronic renal failure, stage 4 (severe) (HCC) 08/23/2020 Atrial fibrillation (HCC) Chronic kidney disease CRF (chronic renal failure), stage 4 (severe) (HCC) 08/23/2020 Diabetes mellitus (HCC) GI bleed Hypertension 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 loss 06/15/2020 Leukopenia Sleep apnea Thrombocytopenia (HCC) PAST SURGICAL HISTORY Procedure Laterality Date COLONOSCOPY Social History Tobacco Use Smoking status: Former Types: Pipe Quit date: 1994 Years since quittin.1 Passive exposure: Past Smokeless tobacco: Never Vaping Use Vaping Use: Never used Substance Use Topics Alcohol use: Not Currently Drug use: Not Currently No family history on file. I spent a total of 30 minutes on the date of the service which included preparing to see the patient, [id number] patient care, completing clinical documentation, performing a medically appropriate examination, counseling and educating the patient/family/caregiver, ordering medications, tests, or procedures, communicating with other HCPs (not separately reported), independently interpreting results (not separately reported), and communicating results to the patient/family/caregiver. Asher Hummel MD, CPE Hematology and Oncology Services Provided at: [place], [place] CC: Dr. Flash Gomez (Cardiology [facility]) Dr. Oumou Esposito documented in this encounter [facility] 09-16-2022 Note [place] [facility] - [facility] Subjective Sandip Broussard is a 81 y.o. year old male patient being seen for 6 mo follow up chronic systolic heart failure, CAD, permanent afib, and hypertension. Had labs a few weeks ago for oncology. Denies chest pain. Still gets a little lightheaded at times but denies falls. states he gets lightheaded due to hypoglycemia and low blood counts. Had blood transfusion this past Friday. Patient Active Problem List Diagnosis Arteriolar nephrosclerosis Essential hypertension, benign Benign prostatic hyperplasia Bradycardia Abnormal stress test Chronic kidney disease, stage 3 (CMS/HCC) Chronic renal impairment Congenital cystic disease of liver CAD (coronary artery disease) Disorder of prostate Edema GERD (gastroesophageal reflux disease) Gout Polyp of colon Hyperlipidemia Obesity Sleep apnea Diabetes mellitus (CMS/HCC) PVC (premature ventricular contraction) Nonrheumatic mitral valve regurgitation Permanent atrial fibrillation (CMS/HCC) Chronic systolic heart failure (CMS/HCC) History of gastrointestinal bleeding Epistaxis 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 He is a 81-year-old man with a complex prior medical history including coronary artery disease status post stenting in the past [TIFFANY to the LAD and then to the RCA on 12/08/2015], currently permanent atrial fibrillation, chronic diastolic heart failure, recurrent episodes of gastrointestinal and nosebleeding, recently resumed on low-dose Eliquis 2.5 mg twice daily due to age and renal dysfunction. He also has moderately severe mitral regurgitation based on the echocardiogram performed in June 2020 at [facility]. Most recently he sustained GI bleeding and underwent investigation of the [facility] clinic. Recovered from that. He was started back on low-dose Eliquis 2.5 mg twice daily. He also has recurrent significant episodes of epistaxis and underwent prior cauterization by ENT. He has had repeated episodes in the past year. Those episodes are usually very significant consequence. They last long. Recently necessitated stopping Eliquis. Currently he denies chest pain. He has shortness of breath on moderate exertion. He has mild bilateral lower extremity edema. After last visit of 07/31/2020 I proceeded with a transesophageal echocardiogram that confirmed the presence of moderately severe mitral regurgitation. There was moderate tricuspid regurgitation. At a prior visit I reduce spironolactone to 25 mg once daily. And at last visit I added amlodipine 10 mg daily to control blood pressure. Previously his lisinopril, spironolactone and terazosin were stopped due to hypotension. He is not taking any antiplatelet or anticoagulation medications due to bleeding and epistaxis. He has not had any issues. He continues to follow-up with hematology for treatment of his pancytopenia. He does not want to have any invasive procedures. On 11/18/2021 he was admitted to [facility] with decompensated heart failure. In addition he was found to have type II NY. He underwent diuresis. Right heart catheterization on 11/21/2021 showed elevated filling pressures. Transesophageal echocardiogram showed moderately reduced systolic function with an ejection fraction of 30 to 35% and severe mitral regurgitation. Since last visit of 02/11/2022 he has been doing about the same. He continues to be on oxygen therapy continuously. He is being treated for MDS by his forest fire equipment operator and has been started on new medication for that. Recently he was found to have hemoglobin of 7.2 and received blood transfusion of 2 units on 09/13/2022. He says he feels better when his blood count is up. He has shortness of breath on exertion, NYHA class IIIb. He is on oxygen all the time. Review of Systems Cardiovascular: Positive for dyspnea on exertion and leg swelling. Respiratory: Positive for shortness of breath. Musculoskeletal: Positive for muscle weakness. Neurological: Positive for light-headedness. Objective Visit Vitals BP (!) 102/45 (BP Location: Right arm, Patient Position: Sitting) Pulse 60 Ht 1.702 m (5' 7 ) Wt 100 kg (221 lb) SpO2 95% BMI 34.61 kg/m??? Smoking Status Former BSA 2.17 m??? Physical Exam Constitutional: Appearance: He is well-developed. He is obese. He is not ill-appearing. HENT: Head: Normocephalic and atraumatic. Nose: Nose normal. Eyes: General: No scleral icterus. Pupils: Pupils are equal, round, and reactive to light. Neck: Thyroid: No thyromegaly. Vascul (more content not included)... [facility] 09-12-2022 Miscellaneous Notes Patient is called and scheduled Called [facility] waiting on a call back Pt's spouse notified of results and need for transfusion. Verbalizes understanding. Clerical: Tello has orders and will be scheduling his transfusion. Angle Kamara RN Pt's spouse requesting to be called w/ today's hgb results. Preliminary hgb - 7.2 Call placed to pt's spouse. No answer. Message left requesting call back. Angle Sessler, RN documented in this encounter [facility] 09-04-2022 Miscellaneous Notes 2 units Packed RBC's at [facility] on Friday09-06-22 lab on . Orders and cbc were faxed to [facility].Patient has been notified documented in this encounter [facility] 08-28-2022 Note [facility] 08-28-2022 Instructions Asher Hummel MD - 08/28/2022 3:36 PM EST Start luspatercept SQ q 3 weeks Check CBC every Friday Keep gb > 8 Check CMP every 3 weeks Recommended ensure/boost for increased calories. RTC in 3 weeks documented in this encounter [facility] 08-28-2022 History of Present illness Narrative Images from the original note were not included. NAME: Sandip Broussard CLINIC NO.: [id number] DATE OF SERVICE: August 28, 2022 (Estephanie) Some elements in this clinic note that are critical to medical decision making have been carefully reviewed and included from a prior clinic note dated: August 21, 2022 (Michelle) Referring Provider: Dr. Flash Pearl Additional Clinicians involved in Sandip Broussard's care: Dr. José Luis Velasquez, Dr. Oumou Wade, Dr. Karen Esposito CC: MDS ASSESSMENT: 81 year old year old man with MDS, stage 4 chronic kidney disease and iron deficiency anemia d/t GI blood loss (seen on capsule endoscopy) and epistaxis. Was receiving high dose EPO every 2 weeks with periodic iron infusions. With persisting cytopenia we started him on Vidaza low dose to see if we could positively impact his pancytopenia and reduce his fatigue as well as his Epo usage. Unfortunately he suffered an acute NY 11/23/2021 and also developed another GI bleed. He was transfused, and medically managed after catheterization. 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 He was requiring transfusion of PRBCs every 3-4 weeks and there was question of if he was responding to Vidaza. He was seen by Dr. 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 Unfortunately treatment is getting overwhelming for him and does not appear to be working. Plan was to switch to luspateracept, which has now gotten insurance approval. NGS Heme: TET2 p.?, [id number], c.4182+1G>A VAF: 44.5% TET2 p.[id number], [id number], c.5618T>C VAF: 40% ZRSR2 p.R30Vfs*8, [id number], c.88delC VAF: 91.1% And the following variant(s) of uncertain significance: BCORL1 p.R72W [id number]: c.214C>T VAF: 100% PLAN: Start luspatercept SQ q 3 weeks Check CBC every Friday Keep gb > 8 Check CMP every 3 weeks Recommended ensure/boost for increased calories. RTC in 3 weeks TREATMENT TO DATE: 5. Luspatercept q 3 weeks 4. 05/20/2022 - 08/28/2022 Low dose Decitabine weekly failed 3. 07/09/2021 - 04/08/2022: Vidaza D1-5 q 28. 2. Retacrit 80,000 units every week. 1. Intermittent IV Iron. HPI: Updated Visit, August 28, 2022: Lloyd returns with his Lissette - they were kind enough to share their 50th anniversay with us. He has been approved for Luspatercept. Obtained consent and education. Will proceed every 3 weeks. Transfused last (6 days) is 8.1 today Updated Visit, August 21, 2022: Sandip Broussard returns for follow-up and continued treatment with decitabine. There has been no significant changes since his last visit. He is wearing home oxygen at 3 L via nasal cannula. His oxygen levels remain in the low 90s. He had 2 units of PRBCs on 08/16/2022. He denies any signs of bleeding. He denies fevers, chills, night sweats and signs/symptoms of infection. He has no new complaints today. Updated Visit, August 14, 2022: Sandip Broussard returns for follow-up and decitabine. Beginning this Friday he developed increasing shortness of breath. He states that at home on 2 L via nasal cannula his oxygen level has been running anywhere from 85% to 93%. He states that the reading varies by finger. He denies cough. No fevers, chills, night sweats or signs/symptoms of infection. He denies bleeding. He tends to bruise easily. He has also noticed a decrease in his appetite. His last blood transfusion with 1 unit of PRBCs was on 08/09/2022. He and his will celebrate 50 years of marriage on 08/23/2021. Updated Visit, August 07, 2022: Lloyd returns and has decreased Hgb/Hct and will send for transfusion later this week. No updates on current plan of care. Discussed the unfortunate reality of his prognosis and potential for Luspatercept to impact change for which there is emerging evidence. Remains hopefull that treatment gets approved. Updated Visit, July 30, 2022: Lloyd returns with his today. No changes. Still awaiting luspateracept approval. Still requiring 3 Liters of Oxygen. No fever, chills, cough or shortness of breath. Appetite declined some and he has lost a few pounds. No vomiting. He just doesn't get hungry. Updated Visit, July 23, 2022: Lloyd returns with his Nicki. They had a pretty bad week. Nicki - bladder cancer Pipes froze Wasn't too happy with prognosis laid out by Dr. Esposito. Dr. Esposito and I spoke about his treatment plan and will change him over to luspatercept as retacrit is not working and decitabine also is not improving his transfusion need. He will need a transfusion this week. Updated Visit, July 15, 2022: Lloyd is back with Nicki. He has had no real change clinically. Has to split his treatment this week. Will transfuse due to logistics for his . Updated Visit, July 08, 2022: Lloyd returns for follow up. No new symptoms. His shortness of breath remains the same. Did not have PRBCs last week, however today his hgb is 7.4. Denies any fevers, chills, nausea, vomiting cough or shortness of breath. Has appointment with Dr. Esposito next week. Updated Visit, July 01, 2022: Stable No significant new symptoms - dyspnea is unchanged. Was transfused last week with 2 units with Hgb 8.1 - today is 8.3. Will hold off for [address] Esposito on 07/16/2022 Updated Visit, June 24, 2022: Sandip Broussard returns for follow-up and treatment. He remains on weekly decitabine on Mondays and Tuesdays. He is tolerating treatment well. He denies fevers, chills, night sweats and signs/symptoms of infection. He denies any abnormal bleeding. He does bruise easily. He is having fatigue. He notices himself sleeping more. He has chronic unchanged shortness of breath. Overall, he is doing well. Updated Visit, June 17, 2022: Lloyd returns with his lissette. His left deltoid improving after his decitabine shot 2 weeks ago. Skin had pulled off with it. Still reddened. Hgb 8.4 today Last transfusion was on 06/12/2022. Overall feels pretty good. Exam of left posterior upper arm is with slight erythema and induration with superficial and shallow ulcer of skin 0.5 cm diameter. Area of induration is 1.5 cm diameter. Updated Visit, June 10, 2022: On antibiotic, cefuroxime 500mg BID for ear infection per dr pearl since 05/29/2022, Rafael hartmann. He stopped it early, but his ear started bothering him again so he restarted it. Denies any fevers, chills. Does have an open area on his left deltoid following his dacogen injection from 06/04/22. No drainage. Still with dyspnea and dizziness. Updated Visit, June 03, 2022: Lloyd is in a wheelchair today and reports getting light headed and dyspneic with standing and light activity. Hgb 6.5 today and will need transfusions this week with recheck on Friday. Continue current plan for low dose Decitabine. Will watch platelet counts and monitor neutropenia. Updated Visit, May 20, 2022: Lloyd returns with his Nicki. He was transfused 2 weeks ago. Presents to start dacogen today. Feels weak today and will need transfusion support. Education and consent done and obtained today. Updated Visit, May 06, 2022: Reviewed bone marrow results and labs with them. Will discuss with my colleague Dr. Esposito with respect to starting Dacogen. 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 Will need retacrit today and weekly as well as PRBC transfusion Updated Visit, April 29, 2022: Lloyd returns and has ongoing cytopenias. Awaiting bone marrow biopsy results. Will continue retacrit weekly. No need for transfusion today. Updated Visit, April 22, 2022: Patient saw Dr. Esposito (recommendations are above). Feels about the same. Hgb today is 7.5 Bone marrow scheduled for 04/25/22 Updated Visit, April 08, 2022: Hgb 8.1 today after transfusion 5 days ago. Due to See Dr. Esposito next 04/18/2022 Will cancel Vidaza for now. Continue aranesp Maintain transfusion support. Updated Visit, March 11, 2022: Unfortunately Lloyd is not maintaining any response to single agent Vidaza and remains transfusion dependent. I spoke with him and his his about seeking an opinion downtown with our Leukemia group as well as Hospice. It was a tearfu meeting as lissette is significantly younger than Lloyd. Updated Visit, February 11, 2022: Patient received 2 units of PRBC on 02/05/22 for hgb of 6.8. Saw cardiology today no changes. Denies any fevers, chill, nausea or vomiting. Overall, other than his normal fatigue, he feels well. Updated Visit, January 14, 2022: Lloyd in good spirit returns to continue treatments for MDS. I think we are making some progress as we haven't had to transfuse him in 4 weeks. WBC counts always start low at the beginning of each cycle but after D5, improve significantly. Hasn't been transfused for 4 weeks - anticipate need this week. Using BiPap and can sleep in bed now. Updated Visit, December 17, 2021: Lloyd is 81 years old and returns with his Lissette in follow-up. He feels much better having had several units transfused and now has a hemoglobin of 10.2. We revisited the discussion of pursuing treatment versus hospice and he is still indeterminant. We discussed pursuing a few more cycles and then reconsidering at that time. He does have some evidence of improvement with improving white blood cell count as well as platelet count improvement. He feels really good following his transfusion and wishes to proceed. Updated Visit, November 29, 2021: Lloyd returns unfortunately had Afib and heart failure with AMI and significant MV regurg. Fatigued. Will consider Hospice. Hold treatment for now and reconsider in 3-4 weeks. Also recovering from pneumonia. Reviewed outside records. Updated Visit, October 25, 2021: Sandip Broussard returns for scheduled follow up. He states that he is feeling slow . He has shortness of breath all the time. He denies any dizziness. He denies any abnormal blood loss. Updated Visit, October 01, 2021: Lloyd is 80 years old and returns with his Lissette for treatment with low-dose Vidaza. He appears to be having some response with improving platelet counts. His only complaints are that of increased abdominal gas. He is otherwise doing well. Continue Retacrit and treatment as recommended. He is safe to proceed. Sees ENT next week No more nose bleeds after stopping Eliquis. Updated Visit, September 17, 2021: Sandip Broussard returns for scheduled follow-up. Since his last visit there has been no significant medical changes. He denies bleeding and abnormal bruising. He denies fevers, chills, night sweats and signs/symptoms of infection. Overall, he feels fairly well. Updated Visit, September 03, 2021: BP improved. Labs stable and platelets have recovered. Was transfused last week and feels better. Neutropenia is disease related and we will continue with treatment. Continue retacrit as Ordered. Transfuse periodically. Updated Visit, August 24, 2021: Lloyd returns today prior to Retacrit during his 2 weeks following Vidaza. Has been having some pain at the base of his skull and is having some dizziness. BP is low - stop Norvasc and Hytrin, and hold Aldactone for now. It is their anniversary today - 49! Updated Visit, August 06, 2021: Lloyd returns today for follow up and cycle 2 of vidaza. Feeling well. Ran out of his diuretic for a week and had some JANG. Was able to get his medications refilled and is feeling better now. No swelling, chest pain, dizziness, fever, chills or other concerning symptoms. Updated Visit, July 19, 2021: Sandip Broussard returns for follow-up. He received his first cycle of Vidaza 07/09/2021 through 07/13/2021. Overall, he tolerated treatment well without any side effects. He is doing well today and offers no new particular complaints. Updated Visit, July 09, 2021: Hasn't required transfusion since 06/2020. Still profoundly anemic despite adequate dosing of aranesp for CKD. Will proceed with low dose Vidaza. Reviewed plan and goals again. Updated Visit, May 31, 2021: EPO was increased to 80,000 units about 2 weeks ago. Feels the same. reports he still spends most of his day on the couch napping. Patient denies any bleeding. Does have diarrhea, which he has had for over 3 months. 2 loose stools a day. Afraid to go places because of the urgency a/w it. Patient denies bleeding. Does not want to see GI at this time. Has not taken anything for it. No new medications. Updated Visit, May 02, 2021: Lloyd returns with his Lissette and reports that he can't exert himself too much but can get out to the barn and doesn't get dizzy anymore. Still not responding as robustly to increased EPO, so will increase to 80k every 2 weeks. Updated Visit, March 07, 2021: Lloyd returns with his Lissette and was seen by Dr. Wade approximately 1 week ago from ENT. Patient was a little bit confused on instructions given and so I reviewed the recommendations and clarified for Lloyd exactly what his regimen should be. This includes stopping Eliquis as well as aspirin. He appears to be stable from a laboratory perspective but continues to have low platelets and generalized pancytopenia. We discussed again, the goal of his treatment and interventions to be palliative as he requested. He feels well today. Updated Visit, February 21, 2021: Nose bleed Friday- ER plugged it up but then went back on Friday hospitalized until this morning Still seeping blood. Operated on nose- surgery w/ Dr. Marshall Last fall in [place]. Has tranexamic acid at home. Requesting ENT referral at [facility]. He is dehydrated and not keeping up with fluids. Partition Setter is elevated exacerbating cause was likely letting his CPAP reservoir go dry. Ferritin is coming down. Updated Visit, January 10, 2021: Lloyd is here for follow up. After review of his chart, he has stage IV ckd and presented with pancytopenia, including significant anemia requiring transfusion due to GI bleeding and nose bleeds. 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 He has received IV iron in the past along with retacrit, which he is currently receiving every other week. Current goal is quality of life with the least amount visits. He did just have a nose bleed on Friday, and it didn't last long. He made his own plug and kept it in his nose for 24 hours and no additional bleeding. He is taking his eliquis one pill daily, but he held it the last two days due to the nose bleed. He is not on aspirin. Overall he feels well and offers no complaints of significant fatigue, shortness of breath, cough, fever, chills or signs of infections. Updated Visit, November 15, 2020: Sandip Broussard returns for follow-up. He remains on Retacrit 40,000 units every 2 weeks and is tolerating it well. Recently he has noticed pain in the back of his neck. He experienced this same pain when his hemoglobin was low in the past. He states that he takes Tylenol with improvement in the pain. He denies any signs of bleeding. He states that his bruising is better. He is still taking the Eliquis daily at the recommendation of his fashion model. Since stopping the aspirin he has not had any further nosebleeds. He denies fevers, chills, night sweats and signs/symptoms of infection. He has persistent exertional shortness of breath. Updated Visit, September 20, 2020: Lloyd is 79 and returns with his Lissette for discussion on his overall condition as well as his rec to have watchman for A-fib. However, our discussion reveals that he really doesn't want to do anything and that he also doesn't want to take full dose anticoagulation. I pressed him and verified that his goals were to focus on quality of life and get minimally involved in medical procedures. We will continue to monitor his counts and transfuse or give iron and retacrit as necessary, but minimize his follow ups. Updated Visit, August 23, 2020: Lloyd is 79 years old and returns with his Lissette today for multifactorial anemia. His GI bleed was finally found and addressed. They brought in a cake to share in their celebration of their anniversary and Nicki's birthday. He reports that he is no longer lightheaded. Still some fatigue. Now will need Aranesp replacement and iron x 1. He may need low dose dacogen in the future if he is unresponsive. Updated visit, July 26, 2020: Lloyd is 79 years old and returns with his Lissette today having had a capsule endoscopy which was positive for GI bleed. This was stopped and he is now recovering from his blood loss anemia. We will continue supporting him with IV iron as needed but for now we will hold off he will continue need B12 and folic acid. He still has underlying myelodysplasia and stage IV chronic kidney disease which is contributing to his anemia but Corine is not bleeding any longer. Updated Visit, July 03, 2020: Lloyd is 79 years old and returns with his Lissette again requiring additional transfusions because of significantly low hemoglobin. I reviewed his bone marrow biopsy with him which is consistent with myelodysplastic syndrome but he has ongoing melena that is highly suspicious for a GI bleed. To date his endoscopic work-up has been negative but he is due to have a capsule endoscopy that hopefully will reveal the cause of his cytopenias. He feels weak and is in a wheelchair today. Updated Visit, June 15, 2020: Conducted by telephone. Sandip Broussard is a 79 year old male seen for pancytopenia recently having had bone marrow biopsy that is most consistent with. 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 Hopefully his iron deficiency can be corrected and perhaps any evidence of GI bleeding can be attenuated. He sees gastroenterology next week. He may need transfusion support before the weekend even though he was just transfused his 17th unit 2 days ago. I reviewed his bone marrow biopsy results with him and his Lissette in some detail. His erythropoietin level is markedly elevated indicating that supplementation would not help and that his renal failure is not contributing to his anemia. Initial Visit, May 29, 2020: Sandip Broussard presents today Hematology and Oncology evaluation. He is a 79 year old male who is accompanied by his Lissette on urgent referral from Dr. Flash Pearl for pancytopenia, hemoglobin of 5 with both recent EGD and colonoscopy demonstrating no evidence of active bleeding but slight chronic gastritis. He also had several epistaxes as blood to the point of requiring transfusions causing lightheadedness and unsteadiness. Patient states he has had black stools since July 2019. So far extensive work-up has been unrevealing. He has had recent hospitalization and was released on 05/26/2020. Full work-up at that time revealed an adequate erythropoietin response despite elevated creatinine and stage III chronic kidney disease. However his white blood cell count remains suppressed as does his platelet count of less than 100,000. Indeed, his epistaxis may be the cause of his melanotic stools but warrants another look and additionally he will need a bone marrow biopsy. His coags are normal. His red blood cell indices only indicate hypochromasia and macrocytosis. Patient had a bleeding scan that was negative as well. REVIEW OF SYSTEMS Per HPI and otherwise negative by full review of organ systems. ECOG PERFORMANCE STATUS: 2 PHYSICAL EXAMINATION: Vitals: BP 110/62 Pulse 77 Temp (Src) 97.3 (Temporal) Resp 16 Ht 5' 5.394 (1.66m) Wt 228 lb 3.2 oz (103.5kg) SpO2 92[3 liters of O2]% BMI 37.52 kg/(m^2). Body surface area is 2.19 meters squared. Exam limited to gross visualization where appropriate due to COVID-19. Gen.: This is an age-appropriate patient in no acute distress. Head: Appears atraumatic with no visible lesions. Eyes: Pupils equally round and reactive to light, extraocular muscles are intact. Neck: Supple. Mouth: Masked. Respiratory: Appears to be respiring comfortably. Neurologic: Nonfocal to gross visualization. Alert and oriented 3. Psychiatric: No evidence of inappropriate anxiety or depression. Skin: Visible areas of skin without rash, lesions, wounds or petechiae. ALLERGIES: ALLERGIES Allergen Reactions Bee Stings [Other] large hives, swelling at site Coreg [Carvedilol] Hives MEDICATIONS: ondansetron (ZOFRAN) 8 mg tablet Take 1 tablet by mouth every 8 hours as needed for nausea/vomiting. prochlorperazine (COMPAZINE) 10 mg tablet Take 1 tablet by mouth every 6 hours as needed. omeprazole (PRILOSEC) 40 mg capsule Take 40 mg by mouth once daily. bumetanide (BUMEX) 1 mg tablet Take 1 mg by mouth every morning. potassium chloride SR (MICRO-K) 10 mEq CR capsule Take 10 mEq by mouth once daily. FARXIGA 10 mg tablet Take 10 mg by mouth daily with breakfast. metoprolol succinate ER (TOPROL XL) 25 mg 24 hr tablet Take 25 mg by mouth once daily. spironolactone (ALDACTONE) 25 mg tablet Take 25 mg by mouth once daily. aspirin 81 mg chewable tablet CHEW 1 TABLET BY MOUTH EVERY DAY sucralfate (CARAFATE) 1 gram tablet Take 1 g by mouth four times daily. [facility] NASAL OINTMENT Apply to affected area twice daily. atorvastatin (LIPITOR) 20 mg tablet Take 1 tablet by mouth daily at bedtime. colchicine 0.6 mg tablet Take 0.6 mg by mouth as needed. As needed 1-2 times/week ONETOUCH DELICA PLUS LANCET 33 gauge glipiZIDE (GLUCOTROL) 5 mg tablet Take 5 mg by mouth once daily. ONETOUCH ULTRA BLUE TEST STRIP test strip cholecalciferol (VITAMIN D3) 1,000 unit tab tablet 1,000 Units once daily. Only taking 500 units lisinopril (ZESTRIL, PRINIVIL) 10 mg tablet Take 1 tablet by mouth once daily. Please resume this medication after PCP follow up LABORATORY VALUES: Hemoglobin (g/dL) Date Value 08/28/2022 8.1 09/17/2021 7.9 Hematocrit (%) Date Value 08/28/2022 25.6 09/17/2021 24.9 WBC (k/uL) Date Value 08/28/2022 2.05 09/17/2021 2.44 Platelet Count (k/uL) Date Value 08/28/2022 43 09/17/2021 83 DIAGNOSIS: (D46.9) MDS (myelodysplastic syndrome) (HCC) (primary encounter diagnosis) (N18.4, D63.1) Anemia of chronic renal failure, stage 4 (severe) (HCC) PAST MEDICAL HISTORY Diagnosis Date Anemia Anemia of chronic renal failure, stage 4 (severe) (HCC) 08/23/2020 Atrial fibrillation (HCC) Chronic kidney disease CRF (chronic renal failure), stage 4 (severe) (HCC) 08/23/2020 Diabetes mellitus (HCC) GI bleed Hypertension 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 loss 06/15/2020 Leukopenia Sleep apnea Thrombocytopenia (HCC) PAST SURGICAL HISTORY Procedure Laterality Date COLONOSCOPY Social History Tobacco Use Smoking status: Former Types: Pipe Quit date: 1994 Years since quittin.1 Passive exposure: Past Smokeless tobacco: Never Vaping Use Vaping Use: Never used Substance Use Topics Alcohol use: Not Currently Drug use: Not Currently No family history on file. I spent a total of 30 minutes on the date of the service which included preparing to see the patient, [id number] patient care, completing clinical documentation, performing a medically appropriate examination, counseling and educating the patient/family/caregiver, ordering medications, tests, or procedures, communicating with other HCPs (not separately reported), independently interpreting results (not separately reported), and communicating results to the patient/family/caregiver. Asher Hummel MD, CPE Hematology and Oncology Services Provided at: [place], [place] CC: Dr. Flash Gomez (Cardiology [facility]) Dr. Oumou Esposito documented in this encounter [facility] 08-27-2022 Note [facility] 08-27-2022 Note HNO ID: [id number] Author: Elysia Esposito MD Service: ? Author Type: Physician Type: Progress Notes Filed: 09/01/2022 3:01 PM Note Text: Please see transcribed note [facility] 08-27-2022 Miscellaneous Notes Patient is already scheduled for f/u and treatment on Friday, 08/28. Angle Kamara RN Ordering today should be here sometime tomorrow, I would schedule Monday 08/28 or after. Thank you Guillermo Gusman rPh Images from the original note were not included. Asher Hummel MD You; [facility] 1 hour ago (6:23 AM) Ok great. When will we be able to start him? Pharmacy: Please advise on the above. Thanks! Angle Kamara RN FYI: Call received from [facility]. Pt's appeal for Luspatercept has been approved from 07/30/22-11/11/22. Authorization #: [id number]. An approval letter will be mailed to our office as well. Angle Kamara RN documented in this encounter [facility] 08-22-2022 Miscellaneous Notes [facility] Infusion Center has transfusion orders for pt. Notes his orders are for leuko reduced and irradiated cells. Per nurse, the pt has never received irradiated cells in the past. Pt's chart reviewed. Prior orders are unmarked or for leuko reduced only. Discussed w/ Dr Edmondson who orders to cancel the order for irradiated. Rosetta @ [facility] notified and verbalizes understanding. Asks that we fax the corrected order to [phone]. Order faxed as requested. Angle Kamara RN documented in this encounter [facility] 08-21-2022 Miscellaneous Notes 2 units packed RBC's at [facility] on 08-22-22. Lab today. Order and cbc were faxed to central scheduling. documented in this encounter [facility] 08-21-2022 Note [facility] 08-21-2022 History of Present illness Narrative Images from the original note were not included. NAME: Sandip Broussard [facility] NO.: [id number] DATE OF SERVICE: August 21, 2022 (Michelle) Some elements in this clinic note that are critical to medical decision making have been carefully reviewed and included from a prior clinic note dated: August 14, 2022. (Michelle) Referring Provider: Dr. Flash Pearl Additional Clinicians involved in Sandip Broussard's care: Dr. José Luis Velasquez, Dr. Oumou Wade, Dr. Karen Esposito CC: MDS ASSESSMENT: 81 year old year old man with MDS, stage 4 chronic kidney disease and iron deficiency anemia d/t GI blood loss (seen on capsule endoscopy) and epistaxis. Was receiving high dose EPO every 2 weeks with periodic iron infusions. With persisting cytopenia we started him on Vidaza low dose to see if we could positively impact his pancytopenia and reduce his fatigue as well as his Epo usage. Unfortunately he suffered an acute [place] 11/23/2021 and also developed another GI bleed. He was transfused, and medically managed after catheterization. 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 He was requiring transfusion of PRBCs every 3-4 weeks and there was question of if he was responding to Vidaza. He was seen by Dr. 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 Unfortunately treatment is getting overwhelming for him and does not appear to be working. Plan is to switch to luspateracept, however awaiting insurance approval. NGS Heme: TET2 p.?, [id number], c.4182+1G>A VAF: 44.5% TET2 p.[id number], [id number], c.5618T>C VAF: 40% ZRSR2 p.R30Vfs*8, [id number], c.88delC VAF: 91.1% And the following variant(s) of uncertain significance: BCORL1 p.R72W [id number]: c.214C>T VAF: 100% PLAN: Continue weekly low dose decitabine. Await luspatercept approval. Transfusion needed tomorrow/Luis Daniel, hemoglobin of 7.7. Follow up in 1 week for labs and continue treatment. Decitabine. Retacrit. Recommended ensure/boost for increased calories. TREATMENT TO DATE: 4. 05/20/2022 - Low dose Decitabine weekly. 3. 07/09/2021 - 04/08/2022: Vidaza D1-5 q 28. 2. Retacrit 80,000 units every week. 1. Intermittent IV Iron. HPI: Updated Visit, August 21, 2022: Sandip Broussard returns for follow-up and continued treatment with decitabine. There has been no significant changes since his last visit. He is wearing home oxygen at 3 L via nasal cannula. His oxygen levels remain in the low 90s. He had 2 units of PRBCs on 08/16/2022. He denies any signs of bleeding. He denies fevers, chills, night sweats and signs/symptoms of infection. He has no new complaints today. Updated Visit, August 14, 2022: Sandip Broussard returns for follow-up and decitabine. Beginning this Friday he developed increasing shortness of breath. He states that at home on 2 L via nasal cannula his oxygen level has been running anywhere from 85% to 93%. He states that the reading varies by finger. He denies cough. No fevers, chills, night sweats or signs/symptoms of infection. He denies bleeding. He tends to bruise easily. He has also noticed a decrease in his appetite. His last blood transfusion with 1 unit of PRBCs was on 08/09/2022. He and his will celebrate 50 years of marriage on 08/23/2021. Updated Visit, August 07, 2022: Lloyd returns and has decreased Hgb/Hct and will send for transfusion later this week. No updates on current plan of care. Discussed the unfortunate reality of his prognosis and potential for Luspatercept to impact change for which there is emerging evidence. Remains hopefull that treatment gets approved. Updated Visit, July 30, 2022: Lloyd returns with his today. No changes. Still awaiting luspateracept approval. Still requiring 3 Liters of Oxygen. No fever, chills, cough or shortness of breath. Appetite declined some and he has lost a few pounds. No vomiting. He just doesn't get hungry. Updated Visit, July 23, 2022: Lloyd returns with his Nicki. They had a pretty bad week. Nicki - bladder cancer Pipes froze Wasn't too happy with prognosis laid out by Dr. Esposito. Dr. Esposito and I spoke about his treatment plan and will change him over to luspatercept as retacrit is not working and decitabine also is not improving his transfusion need. He will need a transfusion this week. Updated Visit, July 15, 2022: Lloyd is back with Nicki. He has had no real change clinically. Has to split his treatment this week. Will transfuse due to logistics for his . Updated Visit, July 08, 2022: Lloyd returns for follow up. No new symptoms. His shortness of breath remains the same. Did not have PRBCs last week, however today his hgb is 7.4. Denies any fevers, chills, nausea, vomiting cough or shortness of breath. Has appointment with Dr. Esposito next week. Updated Visit, July 01, 2022: Stable No significant new symptoms - dyspnea is unchanged. Was transfused last week with 2 units with Hgb 8.1 - today is 8.3. Will hold off for [address] Esposito on 07/16/2022 Updated Visit, June 24, 2022: Sandip Broussard returns for follow-up and treatment. He remains on weekly decitabine on Mondays and Tuesdays. He is tolerating treatment well. He denies fevers, chills, night sweats and signs/symptoms of infection. He denies any abnormal bleeding. He does bruise easily. He is having fatigue. He notices himself sleeping more. He has chronic unchanged shortness of breath. Overall, he is doing well. Updated Visit, June 17, 2022: Lloyd returns with his lissette. His left deltoid improving after his decitabine shot 2 weeks ago. Skin had pulled off with it. Still reddened. Hgb 8.4 today Last transfusion was on 06/12/2022. Overall feels pretty good. Exam of left posterior upper arm is with slight erythema and induration with superficial and shallow ulcer of skin 0.5 cm diameter. Area of induration is 1.5 cm diameter. Updated Visit, June 10, 2022: On antibiotic, cefuroxime 500mg BID for ear infection per dr pearl since 05/29/2022, Rafael hartmann. He stopped it early, but his ear started bothering him again so he restarted it. Denies any fevers, chills. Does have an open area on his left deltoid following his dacogen injection from 06/04/22. No drainage. Still with dyspnea and dizziness. Updated Visit, June 03, 2022: Lloyd is in a wheelchair today and reports getting light headed and dyspneic with standing and light activity. Hgb 6.5 today and will need transfusions this week with recheck on Friday. Continue current plan for low dose Decitabine. Will watch platelet counts and monitor neutropenia. Updated Visit, May 20, 2022: Lloyd returns with his Nicki. He was transfused 2 weeks ago. Presents to start dacogen today. Feels weak today and will need transfusion support. Education and consent done and obtained today. Updated Visit, May 06, 2022: Reviewed bone marrow results and labs with them. Will discuss with my colleague Dr. Esposito with respect to starting Dacogen. 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 Will need retacrit today and weekly as well as PRBC transfusion Updated Visit, April 29, 2022: Lloyd returns and has ongoing cytopenias. Awaiting bone marrow biopsy results. Will continue retacrit weekly. No need for transfusion today. Updated Visit, April 22, 2022: Patient saw Dr. Esposito (recommendations are above). Feels about the same. Hgb today is 7.5 Bone marrow scheduled for 04/25/22 Updated Visit, April 08, 2022: Hgb 8.1 today after transfusion 5 days ago. Due to See Dr. Esposito next 04/18/2022 Will cancel Vidaza for now. Continue aranesp Maintain transfusion support. Updated Visit, March 11, 2022: Unfortunately Lloyd is not maintaining any response to single agent Vidaza and remains transfusion dependent. I spoke with him and his his about seeking an opinion downtown with our Leukemia group as well as Hospice. It was a tearfu meeting as lissette is significantly younger than Lloyd. Updated Visit, February 11, 2022: Patient received 2 units of PRBC on 02/05/22 for hgb of 6.8. Saw cardiology today no changes. Denies any fevers, chill, nausea or vomiting. Overall, other than his normal fatigue, he feels well. Updated Visit, January 14, 2022: Lloyd in good spirit returns to continue treatments for MDS. I think we are making some progress as we haven't had to transfuse him in 4 weeks. WBC counts always start low at the beginning of each cycle but after D5, improve significantly. Hasn't been transfused for 4 weeks - anticipate need this week. Using BiPap and can sleep in bed now. Updated Visit, December 17, 2021: Lloyd is 81 years old and returns with his Lissette in follow-up. He feels much better having had several units transfused and now has a hemoglobin of 10.2. We revisited the discussion of pursuing treatment versus hospice and he is still indeterminant. We discussed pursuing a few more cycles and then reconsidering at that time. He does have some evidence of improvement with improving white blood cell count as well as platelet count improvement. He feels really good following his transfusion and wishes to proceed. Updated Visit, November 29, 2021: Lloyd returns unfortunately had Afib and heart failure with AMI and significant MV regurg. Fatigued. Will consider Hospice. Hold treatment for now and reconsider in 3-4 weeks. Also recovering from pneumonia. Reviewed outside records. Updated Visit, October 25, 2021: Sandip Broussard returns for scheduled follow up. He states that he is feeling slow . He has shortness of breath all the time. He denies any dizziness. He denies any abnormal blood loss. Updated Visit, October 01, 2021: Lloyd is 80 years old and returns with his Lissette for treatment with low-dose Vidaza. He appears to be having some response with improving platelet counts. His only complaints are that of increased abdominal gas. He is otherwise doing well. Continue Retacrit and treatment as recommended. He is safe to proceed. Sees ENT next week No more nose bleeds after stopping Eliquis. Updated Visit, September 17, 2021: Sandip Broussard returns for scheduled follow-up. Since his last visit there has been no significant medical changes. He denies bleeding and abnormal bruising. He denies fevers, chills, night sweats and signs/symptoms of infection. Overall, he feels fairly well. Updated Visit, September 03, 2021: BP improved. Labs stable and platelets have recovered. Was transfused last week and feels better. Neutropenia is disease related and we will continue with treatment. Continue retacrit as Ordered. Transfuse periodically. Updated Visit, August 24, 2021: Lloyd returns today prior to Retacrit during his 2 weeks following Vidaza. Has been having some pain at the base of his skull and is having some dizziness. BP is low - stop Norvasc and Hytrin, and hold Aldactone for now. It is their anniversary today - 49th! Updated Visit, August 06, 2021: Lloyd returns today for follow up and cycle 2 of vidaza. Feeling well. Ran out of his diuretic for a week and had some JANG. Was able to get his medications refilled and is feeling better now. No swelling, chest pain, dizziness, fever, chills or other concerning symptoms. Updated Visit, July 19, 2021: Sandip Broussard returns for follow-up. He received his first cycle of Vidaza 07/09/2021 through 07/13/2021. Overall, he tolerated treatment well without any side effects. He is doing well today and offers no new particular complaints. Updated Visit, July 09, 2021: Hasn't required transfusion since 06/2020. Still profoundly anemic despite adequate dosing of aranesp for CKD. Will proceed with low dose Vidaza. Reviewed plan and goals again. Updated Visit, May 31, 2021: EPO was increased to 80,000 units about 2 weeks ago. Feels the same. reports he still spends most of his day on the couch napping. Patient denies any bleeding. Does have diarrhea, which he has had for over 3 months. 2 loose stools a day. Afraid to go places because of the urgency a/w it. Patient denies bleeding. Does not want to see GI at this time. Has not taken anything for it. No new medications. Updated Visit, May 02, 2021: Lloyd returns with his Lissette and reports that he can't exert himself too much but can get out to the barn and doesn't get dizzy anymore. Still not responding as robustly to increased EPO, so will increase to 80k every 2 weeks. Updated Visit, March 07, 2021: Lloyd returns with his Lissette and was seen by Dr. Wade approximately 1 week ago from ENT. Patient was a little bit confused on instructions given and so I reviewed the recommendations and clarified for Lloyd exactly what his regimen should be. This includes stopping Eliquis as well as aspirin. He appears to be stable from a laboratory perspective but continues to have low platelets and generalized pancytopenia. We discussed again, the goal of his treatment and interventions to be palliative as he requested. He feels well today. Updated Visit, February 21, 2021: Nose bleed Friday- ER plugged it up but then went back on Friday hospitalized until this morning Still seeping blood. Operated on nose- surgery w/ Dr. Marshall Last fall in [place]. Has tranexamic acid at home. Requesting ENT referral at [facility]. He is dehydrated and not keeping up with fluids. Partition Setter is elevated exacerbating cause was likely letting his CPAP reservoir go dry. Ferritin is coming down. Updated Visit, January 10, 2021: Lloyd is here for follow up. After review of his chart, he has stage IV ckd and presented with pancytopenia, including significant anemia requiring transfusion due to GI bleeding and nose bleeds. 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 He has received IV iron in the past along with retacrit, which he is currently receiving every other week. Current goal is quality of life with the least amount visits. He did just have a nose bleed on Friday, and it didn't last long. He made his own plug and kept it in his nose for 24 hours and no additional bleeding. He is taking his eliquis one pill daily, but he held it the last two days due to the nose bleed. He is not on aspirin. Overall he feels well and offers no complaints of significant fatigue, shortness of breath, cough, fever, chills or signs of infections. Updated Visit, November 15, 2020: Sandip Broussard returns for follow-up. He remains on Retacrit 40,000 units every 2 weeks and is tolerating it well. Recently he has noticed pain in the back of his neck. He experienced this same pain when his hemoglobin was low in the past. He states that he takes Tylenol with improvement in the pain. He denies any signs of bleeding. He states that his bruising is better. He is still taking the Eliquis daily at the recommendation of his fashion model. Since stopping the aspirin he has not had any further nosebleeds. He denies fevers, chills, night sweats and signs/symptoms of infection. He has persistent exertional shortness of breath. Updated Visit, September 20, 2020: Lloyd is 79 and returns with his Lissette for discussion on his overall condition as well as his rec to have watchman for A-fib. However, our discussion reveals that he really doesn't want to do anything and that he also doesn't want to take full dose anticoagulation. I pressed him and verified that his goals were to focus on quality of life and get minimally involved in medical procedures. We will continue to monitor his counts and transfuse or give iron and retacrit as necessary, but minimize his follow ups. Updated Visit, August 23, 2020: Lloyd is 79 years old and returns with his Lissette today for multifactorial anemia. His GI bleed was finally found and addressed. They brought in a cake to share in their celebration of their anniversary and Nicki's birthday. He reports that he is no longer lightheaded. Still some fatigue. Now will need Aranesp replacement and iron x 1. He may need low dose dacogen in the future if he is unresponsive. Updated visit, July 26, 2020: Lloyd is 79 years old and returns with his Lissette today having had a capsule endoscopy which was positive for GI bleed. This was stopped and he is now recovering from his blood loss anemia. We will continue supporting him with IV iron as needed but for now we will hold off he will continue need B12 and folic acid. He still has underlying myelodysplasia and stage IV chronic kidney disease which is contributing to his anemia but Corine is not bleeding any longer. Updated Visit, July 03, 2020: Lloyd is 79 years old and returns with his Lissette again requiring additional transfusions because of significantly low hemoglobin. I reviewed his bone marrow biopsy with him which is consistent with myelodysplastic syndrome but he has ongoing melena that is highly suspicious for a GI bleed. To date his endoscopic work-up has been negative but he is due to have a capsule endoscopy that hopefully will reveal the cause of his cytopenias. He feels weak and is in a wheelchair today. Updated Visit, June 15, 2020: Conducted by telephone. Sandip Broussard is a 79 year old male seen for pancytopenia recently having had bone marrow biopsy that is most consistent with. 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 Hopefully his iron deficiency can be corrected and perhaps any evidence of GI bleeding can be attenuated. He sees gastroenterology next week. He may need transfusion support before the weekend even though he was just transfused his 17th unit 2 days ago. I reviewed his bone marrow biopsy results with him and his Lissette in some detail. His erythropoietin level is markedly elevated indicating that supplementation would not help and that his renal failure is not contributing to his anemia. Initial Visit, May 29, 2020: Sandip Broussard presents today Hematology and Oncology evaluation. He is a 79 year old male who is accompanied by his Lissette on urgent referral from Dr. Flash Pearl for pancytopenia, hemoglobin of 5 with both recent EGD and colonoscopy demonstrating no evidence of active bleeding but slight chronic gastritis. He also had several epistaxes as blood to the point of requiring transfusions causing lightheadedness and unsteadiness. Patient states he has had black stools since July 2019. So far extensive work-up has been unrevealing. He has had recent hospitalization and was released on 05/26/2020. Full work-up at that time revealed an adequate erythropoietin response despite elevated creatinine and stage III chronic kidney disease. However his white blood cell count remains suppressed as does his platelet count of less than 100,000. Indeed, his epistaxis may be the cause of his melanotic stools but warrants another look and additionally he will need a bone marrow biopsy. His coags are normal. His red blood cell indices only indicate hypochromasia and macrocytosis. Patient had a bleeding scan that was negative as well. REVIEW OF SYSTEMS Per HPI and otherwise negative by full review of organ systems. ECOG PERFORMANCE STATUS: 2 PHYSICAL EXAMINATION: Vitals: BP 84/37 Pulse 74 Temp (Src) 97.6 (Temporal) Resp 18 Ht 5' 5.394 (1.66m) Wt 228 lb 3.2 oz (103.5kg) SpO2 92[O2 @ 3L]% BMI 37.52 kg/(m^2). Body surface area is 2.19 meters squared. Exam limited to gross visualization where appropriate due to COVID-19. Gen.: This is an age-appropriate patient in no acute distress. Head: Appears atraumatic with no visible lesions. Eyes: Pupils equally round and reactive to light, extraocular muscles are intact. Neck: Supple. Mouth: Masked. Respiratory: Appears to be respiring comfortably. Neurologic: Nonfocal to gross visualization. Alert and oriented 3. Psychiatric: No evidence of inappropriate anxiety or depression. Skin: Visible areas of skin without rash, lesions, wounds or petechiae. ALLERGIES: ALLERGIES Allergen Reactions Bee Stings [Other] large hives, swelling at site Coreg [Carvedilol] Hives MEDICATIONS: ondansetron (ZOFRAN) 8 mg tablet Take 1 tablet by mouth every 8 hours as needed for nausea/vomiting. prochlorperazine (COMPAZINE) 10 mg tablet Take 1 tablet by mouth every 6 hours as needed. omeprazole (PRILOSEC) 40 mg capsule Take 40 mg by mouth once daily. bumetanide (BUMEX) 1 mg tablet Take 1 mg by mouth every morning. potassium chloride SR (MICRO-K) 10 mEq CR capsule Take 10 mEq by mouth once daily. FARXIGA 10 mg tablet Take 10 mg by mouth daily with breakfast. metoprolol succinate ER (TOPROL XL) 25 mg 24 hr tablet Take 25 mg by mouth once daily. spironolactone (ALDACTONE) 25 mg tablet Take 25 mg by mouth once daily. aspirin 81 mg chewable tablet CHEW 1 TABLET BY MOUTH EVERY DAY sucralfate (CARAFATE) 1 gram tablet Take 1 g by mouth four times daily. [facility] NASAL OINTMENT Apply to affected area twice daily. atorvastatin (LIPITOR) 20 mg tablet Take 1 tablet by mouth daily at bedtime. colchicine 0.6 mg tablet Take 0.6 mg by mouth as needed. As needed 1-2 times/week lisinopril (ZESTRIL, PRINIVIL) 10 mg tablet Take 1 tablet by mouth once daily. Please resume this medication after PCP follow up ONETOUCH DELICA PLUS LANCET 33 gauge glipiZIDE (GLUCOTROL) 5 mg tablet Take 5 mg by mouth once daily. ONETOUCH ULTRA BLUE TEST STRIP test strip cholecalciferol (VITAMIN D3) 1,000 unit tab tablet 1,000 Units once daily. Only taking 500 units LABORATORY VALUES: Hemoglobin (g/dL) Date Value 08/21/2022 7.7 09/17/2021 7.9 Hematocrit (%) Date Value 08/21/2022 24.2 09/17/2021 24.9 WBC (k/uL) Date Value 08/21/2022 2.00 09/17/2021 2.44 Platelet Count (k/uL) Date Value 08/21/2022 50 09/17/2021 83 DIAGNOSIS: (D46.9) MDS (myelodysplastic syndrome) (HCC) (primary encounter diagnosis) (N18.4, D63.1) Anemia of chronic renal failure, stage 4 (severe) ([facility]) (D50.0) 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 loss (N18.4) CRF (chronic renal failure), stage 4 (severe) ([facility]) (E83.111) 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 transfusions (N18.4) CKD (chronic kidney disease) stage 4, GFR 15-29 ml/min ([facility]) (I95.89, E86.1) Hypotension due to hypovolemia PAST MEDICAL HISTORY Diagnosis Date Anemia Anemia of chronic renal failure, stage 4 (severe) (HCC) 08/23/2020 Atrial fibrillation (HCC) Chronic kidney disease CRF (chronic renal failure), stage 4 (severe) (HCC) 08/23/2020 Diabetes mellitus ([facility]) GI bleed Hypertension 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 loss 06/15/2020 Leukopenia Sleep apnea Thrombocytopenia (HCC) PAST SURGICAL HISTORY Procedure Laterality Date COLONOSCOPY Social History Tobacco Use Smoking status: Former Types: Pipe Quit date: 1994 Years since quittin.0 Passive exposure: Past Smokeless tobacco: Never Vaping Use Vaping Use: Never used Substance Use Topics Alcohol use: Not Currently Drug use: Not Currently No family history on file. Wilfred Martinez APRN.[employer] Hematology and Oncology Services Provided at: [place], [place] CC: Dr. Flash Gomez (Cardiology [facility]) Dr. Oumou Esposito I spent a total of 30 minutes on the date of the service which included preparing to see the patient, [id number] patient care, completing clinical documentation, obtaining and/or reviewing separately obtained history, performing a medically appropriate examination, counseling and educating the patient/family/caregiver, ordering medications, tests, or procedures, independently interpreting results (not separately reported), and communicating results to the patient/family/caregiver. documented in this encounter [facility] 08-14-2022 Miscellaneous Notes Orders faxed to [facility] lab. [place] notified and confirms receipt. Angle Kamara RN Signed. Wilfred Martinez APRN.[facility] is requesting an order for H&H. Order pended. Angle Kamara RN documented in this encounter [facility] 08-14-2022 Miscellaneous Notes Called and spoke with to update that pt did not receive his retacrit dose today. They did not want to come back tomorrow or Friday. Pt will receive his next dose on Monday 08/21 when he is here for f/u with Wilfred. PSS- please also change his dacogen injection to Friday of next week to minimize the amount of appointments and notify . TY. documented in this encounter [facility] 08-14-2022 Note [facility] 08-14-2022 Miscellaneous Notes 2 units packed RBC's at [facility]. Left detailed message and faxed the order with [facility]. They will call the patient to schedule this appointment. documented in this encounter [facility] 08-14-2022 History of Present illness Narrative Images from the original note were not included. NAME: Sandip Broussard [facility] NO.: [id number] DATE OF SERVICE: August 14, 2022 (Michelle) Some elements in this clinic note that are critical to medical decision making have been carefully reviewed and included from a prior clinic note dated: July. (Dr. Hummel) Referring Provider: Dr. Flash Pearl Additional Clinicians involved in Sandip Broussard's care: Dr. José Luis Velasquez, Dr. Oumou Wade, Dr. Karen Esposito CC: MDS ASSESSMENT: 81 year old year old man with MDS, stage 4 chronic kidney disease and iron deficiency anemia d/t GI blood loss (seen on capsule endoscopy) and epistaxis. Was receiving high dose EPO every 2 weeks with periodic iron infusions. With persisting cytopenia we started him on Vidaza low dose to see if we could positively impact his pancytopenia and reduce his fatigue as well as his Epo usage. Unfortunately he suffered an acute [place] 11/23/2021 and also developed another GI bleed. He was transfused, and medically managed after catheterization. 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 He was requiring transfusion of PRBCs every 3-4 weeks and there was question of if he was responding to Vidaza. He was seen by Dr. 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 Unfortunately treatment is getting overwhelming for him and does not appear to be working. Plan is to switch to luspateracept, however awaiting insurance approval. NGS Heme: TET2 p.?, [id number], c.4182+1G>A VAF: 44.5% TET2 p.H4106M, [id number], c.5618T>C VAF: 40% ZRSR2 p.R30Vfs*8, [id number], c.88delC VAF: 91.1% And the following variant(s) of uncertain significance: BCORL1 p.R72W [id number]: c.214C>T VAF: 100% PLAN: Continue weekly low dose decitabine. Await luspatercept approval. Transfusion needed tomorrow/Friday, hemoglobin of 7.3. Follow up in 1 week for labs and continue treatment. Decitabine. Retacrit. Recommended ensure/boost for increased calories. TREATMENT TO DATE: 4. 05/20/2022 - Low dose Decitabine weekly. 3. 07/09/2021 - 04/08/2022: Vidaza D1-5 q 28. 2. Retacrit 80,000 units every week. 1. Intermittent IV Iron. HPI: Updated Visit, August 14, 2022: Sandip Broussard returns for follow-up and decitabine. Beginning this Friday he developed increasing shortness of breath. He states that at home on 2 L via nasal cannula his oxygen level has been running anywhere from 85% to 93%. He states that the reading varies by finger. He denies cough. No fevers, chills, night sweats or signs/symptoms of infection. He denies bleeding. He tends to bruise easily. He has also noticed a decrease in his appetite. His last blood transfusion with 1 unit of PRBCs was on 08/09/2022. He and his will celebrate 50 years of marriage on 08/23/2021. Updated Visit, August 07, 2022: Lloyd returns and has decreased Hgb/Hct and will send for transfusion later this week. No updates on current plan of care. Discussed the unfortunate reality of his prognosis and potential for Luspatercept to impact change for which there is emerging evidence. Remains hopefull that treatment gets approved. Updated Visit, July 30, 2022: Lloyd returns with his today. No changes. Still awaiting luspateracept approval. Still requiring 3 Liters of Oxygen. No fever, chills, cough or shortness of breath. Appetite declined some and he has lost a few pounds. No vomiting. He just doesn't get hungry. Updated Visit, July 23, 2022: Lloyd returns with his Nicki. They had a pretty bad week. Nicki - bladder cancer Pipes froze Wasn't too happy with prognosis laid out by Dr. Esposito. Dr. Esposito and I spoke about his treatment plan and will change him over to luspatercept as retacrit is not working and decitabine also is not improving his transfusion need. He will need a transfusion this week. Updated Visit, July 15, 2022: Lloyd is back with Nicki. He has had no real change clinically. Has to split his treatment this week. Will transfuse due to logistics for his . Updated Visit, July 08, 2022: Lloyd returns for follow up. No new symptoms. His shortness of breath remains the same. Did not have PRBCs last week, however today his hgb is 7.4. Denies any fevers, chills, nausea, vomiting cough or shortness of breath. Has appointment with Dr. Esposito next week. Updated Visit, July 01, 2022: Stable No significant new symptoms - dyspnea is unchanged. Was transfused last week with 2 units with Hgb 8.1 - today is 8.3. Will hold off for [address] Esposito on 07/16/2022 Updated Visit, June 24, 2022: Sandip Broussard returns for follow-up and treatment. He remains on weekly decitabine on Mondays and Tuesdays. He is tolerating treatment well. He denies fevers, chills, night sweats and signs/symptoms of infection. He denies any abnormal bleeding. He does bruise easily. He is having fatigue. He notices himself sleeping more. He has chronic unchanged shortness of breath. Overall, he is doing well. Updated Visit, June 17, 2022: Lloyd returns with his lissette. His left deltoid improving after his decitabine shot 2 weeks ago. Skin had pulled off with it. Still reddened. Hgb 8.4 today Last transfusion was on 06/12/2022. Overall feels pretty good. Exam of left posterior upper arm is with slight erythema and induration with superficial and shallow ulcer of skin 0.5 cm diameter. Area of induration is 1.5 cm diameter. Updated Visit, June 10, 2022: On antibiotic, cefuroxime 500mg BID for ear infection per dr pearl since 05/29/2022, Rafael hartmann. He stopped it early, but his ear started bothering him again so he restarted it. Denies any fevers, chills. Does have an open area on his left deltoid following his dacogen injection from 06/04/22. No drainage. Still with dyspnea and dizziness. Updated Visit, June 03, 2022: Lloyd is in a wheelchair today and reports getting light headed and dyspneic with standing and light activity. Hgb 6.5 today and will need transfusions this week with recheck on Friday. Continue current plan for low dose Decitabine. Will watch platelet counts and monitor neutropenia. Updated Visit, May 20, 2022: Lloyd returns with his Nicki. He was transfused 2 weeks ago. Presents to start dacogen today. Feels weak today and will need transfusion support. Education and consent done and obtained today. Updated Visit, May 06, 2022: Reviewed bone marrow results and labs with them. Will discuss with my colleague Dr. Esposito with respect to starting Dacogen. 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 Will need retacrit today and weekly as well as PRBC transfusion Updated Visit, April 29, 2022: Lloyd returns and has ongoing cytopenias. Awaiting bone marrow biopsy results. Will continue retacrit weekly. No need for transfusion today. Updated Visit, April 22, 2022: Patient saw Dr. Esposito (recommendations are above). Feels about the same. Hgb today is 7.5 Bone marrow scheduled for 04/25/22 Updated Visit, April 08, 2022: Hgb 8.1 today after transfusion 5 days ago. Due to See Dr. Esposito next 04/18/2022 Will cancel Vidaza for now. Continue aranesp Maintain transfusion support. Updated Visit, March 11, 2022: Unfortunately Lloyd is not maintaining any response to single agent Vidaza and remains transfusion dependent. I spoke with him and his his about seeking an opinion downtown with our Leukemia group as well as Hospice. It was a tearfu meeting as lissette is significantly younger than Lloyd. Updated Visit, February 11, 2022: Patient received 2 units of PRBC on 02/05/22 for hgb of 6.8. Saw cardiology today no changes. Denies any fevers, chill, nausea or vomiting. Overall, other than his normal fatigue, he feels well. Updated Visit, January 14, 2022: Lloyd in good spirit returns to continue treatments for MDS. I think we are making some progress as we haven't had to transfuse him in 4 weeks. WBC counts always start low at the beginning of each cycle but after D5, improve significantly. Hasn't been transfused for 4 weeks - anticipate need this week. Using BiPap and can sleep in bed now. Updated Visit, December 17, 2021: Lloyd is 81 years old and returns with his Lissette in follow-up. He feels much better having had several units transfused and now has a hemoglobin of 10.2. We revisited the discussion of pursuing treatment versus hospice and he is still indeterminant. We discussed pursuing a few more cycles and then reconsidering at that time. He does have some evidence of improvement with improving white blood cell count as well as platelet count improvement. He feels really good following his transfusion and wishes to proceed. Updated Visit, November 29, 2021: Lloyd returns unfortunately had Afib and heart failure with AMI and significant MV regurg. Fatigued. Will consider Hospice. Hold treatment for now and reconsider in 3-4 weeks. Also recovering from pneumonia. Reviewed outside records. Updated Visit, October 25, 2021: Sandip Broussard returns for scheduled follow up. He states that he is feeling slow . He has shortness of breath all the time. He denies any dizziness. He denies any abnormal blood loss. Updated Visit, October 01, 2021: Lloyd is 80 years old and returns with his Lissette for treatment with low-dose Vidaza. He appears to be having some response with improving platelet counts. His only complaints are that of increased abdominal gas. He is otherwise doing well. Continue Retacrit and treatment as recommended. He is safe to proceed. Sees ENT next week No more nose bleeds after stopping Eliquis. Updated Visit, September 17, 2021: Sandip Broussard returns for scheduled follow-up. Since his last visit there has been no significant medical changes. He denies bleeding and abnormal bruising. He denies fevers, chills, night sweats and signs/symptoms of infection. Overall, he feels fairly well. Updated Visit, September 03, 2021: BP improved. Labs stable and platelets have recovered. Was transfused last week and feels better. Neutropenia is disease related and we will continue with treatment. Continue retacrit as Ordered. Transfuse periodically. Updated Visit, August 24, 2021: Lloyd returns today prior to Retacrit during his 2 weeks following Vidaza. Has been having some pain at the base of his skull and is having some dizziness. BP is low - stop Norvasc and Hytrin, and hold Aldactone for now. It is their anniversary today - 49th! Updated Visit, August 06, 2021: Lloyd returns today for follow up and cycle 2 of vidaza. Feeling well. Ran out of his diuretic for a week and had some JANG. Was able to get his medications refilled and is feeling better now. No swelling, chest pain, dizziness, fever, chills or other concerning symptoms. Updated Visit, July 19, 2021: Sandip Broussard returns for follow-up. He received his first cycle of Vidaza 07/09/2021 through 07/13/2021. Overall, he tolerated treatment well without any side effects. He is doing well today and offers no new particular complaints. Updated Visit, July 09, 2021: Hasn't required transfusion since 06/2020. Still profoundly anemic despite adequate dosing of aranesp for CKD. Will proceed with low dose Vidaza. Reviewed plan and goals again. Updated Visit, May 31, 2021: EPO was increased to 80,000 units about 2 weeks ago. Feels the same. reports he still spends most of his day on the couch napping. Patient denies any bleeding. Does have diarrhea, which he has had for over 3 months. 2 loose stools a day. Afraid to go places because of the urgency a/w it. Patient denies bleeding. Does not want to see GI at this time. Has not taken anything for it. No new medications. Updated Visit, May 02, 2021: Lloyd returns with his Lissette and reports that he can't exert himself too much but can get out to the barn and doesn't get dizzy anymore. Still not responding as robustly to increased EPO, so will increase to 80k every 2 weeks. Updated Visit, March 07, 2021: Lloyd returns with his Lissette and was seen by Dr. Wade approximately 1 week ago from ENT. Patient was a little bit confused on instructions given and so I reviewed the recommendations and clarified for Lloyd exactly what his regimen should be. This includes stopping Eliquis as well as aspirin. He appears to be stable from a laboratory perspective but continues to have low platelets and generalized pancytopenia. We discussed again, the goal of his treatment and interventions to be palliative as he requested. He feels well today. Updated Visit, February 21, 2021: Nose bleed Friday- ER plugged it up but then went back on Friday hospitalized until this morning Still seeping blood. Operated on nose- surgery w/ Dr. Marshall Last fall in [place]. Has tranexamic acid at home. Requesting ENT referral at [facility]. He is dehydrated and not keeping up with fluids. Partition Setter is elevated exacerbating cause was likely letting his CPAP reservoir go dry. Ferritin is coming down. Updated Visit, January 10, 2021: Lloyd is here for follow up. After review of his chart, he has stage IV ckd and presented with pancytopenia, including significant anemia requiring transfusion due to GI bleeding and nose bleeds. 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 He has received IV iron in the past along with retacrit, which he is currently receiving every other week. Current goal is quality of life with the least amount visits. He did just have a nose bleed on Friday, and it didn't last long. He made his own plug and kept it in his nose for 24 hours and no additional bleeding. He is taking his eliquis one pill daily, but he held it the last two days due to the nose bleed. He is not on aspirin. Overall he feels well and offers no complaints of significant fatigue, shortness of breath, cough, fever, chills or signs of infections. Updated Visit, November 15, 2020: Sandip Broussard returns for follow-up. He remains on Retacrit 40,000 units every 2 weeks and is tolerating it well. Recently he has noticed pain in the back of his neck. He experienced this same pain when his hemoglobin was low in the past. He states that he takes Tylenol with improvement in the pain. He denies any signs of bleeding. He states that his bruising is better. He is still taking the Eliquis daily at the recommendation of his fashion model. Since stopping the aspirin he has not had any further nosebleeds. He denies fevers, chills, night sweats and signs/symptoms of infection. He has persistent exertional shortness of breath. Updated Visit, September 20, 2020: Lloyd is 79 and returns with his Lissette for discussion on his overall condition as well as his rec to have watchman for A-fib. However, our discussion reveals that he really doesn't want to do anything and that he also doesn't want to take full dose anticoagulation. I pressed him and verified that his goals were to focus on quality of life and get minimally involved in medical procedures. We will continue to monitor his counts and transfuse or give iron and retacrit as necessary, but minimize his follow ups. Updated Visit, August 23, 2020: Lloyd is 79 years old and returns with his Lissette today for multifactorial anemia. His GI bleed was finally found and addressed. They brought in a cake to share in their celebration of their anniversary and Nicki's birthday. He reports that he is no longer lightheaded. Still some fatigue. Now will need Aranesp replacement and iron x 1. He may need low dose dacogen in the future if he is unresponsive. Updated visit, July 26, 2020: Lloyd is 79 years old and returns with his Lissette today having had a capsule endoscopy which was positive for GI bleed. This was stopped and he is now recovering from his blood loss anemia. We will continue supporting him with IV iron as needed but for now we will hold off he will continue need B12 and folic acid. He still has underlying myelodysplasia and stage IV chronic kidney disease which is contributing to his anemia but Corine is not bleeding any longer. Updated Visit, July 03, 2020: Lloyd is 79 years old and returns with his Lissette again requiring additional transfusions because of significantly low hemoglobin. I reviewed his bone marrow biopsy with him which is consistent with myelodysplastic syndrome but he has ongoing melena that is highly suspicious for a GI bleed. To date his endoscopic work-up has been negative but he is due to have a capsule endoscopy that hopefully will reveal the cause of his cytopenias. He feels weak and is in a wheelchair today. Updated Visit, June 15, 2020: Conducted by telephone. Sandip Broussard is a 79 year old male seen for pancytopenia recently having had bone marrow biopsy that is most consistent with. 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 Hopefully his iron deficiency can be corrected and perhaps any evidence of GI bleeding can be attenuated. He sees gastroenterology next week. He may need transfusion support before the weekend even though he was just transfused his 17th unit 2 days ago. I reviewed his bone marrow biopsy results with him and his Lissette in some detail. His erythropoietin level is markedly elevated indicating that supplementation would not help and that his renal failure is not contributing to his anemia. Initial Visit, May 29, 2020: Sandip Broussard presents today Hematology and Oncology evaluation. He is a 79 year old male who is accompanied by his Lissette on urgent referral from Dr. Flash Pearl for pancytopenia, hemoglobin of 5 with both recent EGD and colonoscopy demonstrating no evidence of active bleeding but slight chronic gastritis. He also had several epistaxes as blood to the point of requiring transfusions causing lightheadedness and unsteadiness. Patient states he has had black stools since July 2019. So far extensive work-up has been unrevealing. He has had recent hospitalization and was released on 05/26/2020. Full work-up at that time revealed an adequate erythropoietin response despite elevated creatinine and stage III chronic kidney disease. However his white blood cell count remains suppressed as does his platelet count of less than 100,000. Indeed, his epistaxis may be the cause of his melanotic stools but warrants another look and additionally he will need a bone marrow biopsy. His coags are normal. His red blood cell indices only indicate hypochromasia and macrocytosis. Patient had a bleeding scan that was negative as well. REVIEW OF SYSTEMS Per HPI and otherwise negative by full review of organ systems. ECOG PERFORMANCE STATUS: 2 PHYSICAL EXAMINATION: Vitals: BP 93/41 Pulse 71 Temp (Src) 97.3 (Temporal) Resp 16 Ht 5' 5.394 (1.66m) Wt 229 lb 3.2 oz (104.0kg) SpO2 90% BMI 37.68 kg/(m^2). Body surface area is 2.19 meters squared. Exam limited to gross visualization where appropriate due to COVID-19. Gen.: This is an age-appropriate patient in no acute distress. Head: Appears atraumatic with no visible lesions. Eyes: Pupils equally round and reactive to light, extraocular muscles are intact. Neck: Supple. Mouth: Masked. Respiratory: Appears to be respiring comfortably. Neurologic: Nonfocal to gross visualization. Alert and oriented 3. Psychiatric: No evidence of inappropriate anxiety or depression. Skin: Visible areas of skin without rash, lesions, wounds or petechiae. ALLERGIES: ALLERGIES Allergen Reactions Bee Stings [Other] large hives, swelling at site Coreg [Carvedilol] Hives MEDICATIONS: ondansetron (ZOFRAN) 8 mg tablet Take 1 tablet by mouth every 8 hours as needed for nausea/vomiting. prochlorperazine (COMPAZINE) 10 mg tablet Take 1 tablet by mouth every 6 hours as needed. omeprazole (PRILOSEC) 40 mg capsule Take 40 mg by mouth once daily. bumetanide (BUMEX) 1 mg tablet Take 1 mg by mouth every morning. potassium chloride SR (MICRO-K) 10 mEq CR capsule Take 10 mEq by mouth once daily. FARXIGA 10 mg tablet Take 10 mg by mouth daily with breakfast. metoprolol succinate ER (TOPROL XL) 25 mg 24 hr tablet Take 25 mg by mouth once daily. spironolactone (ALDACTONE) 25 mg tablet Take 25 mg by mouth once daily. aspirin 81 mg chewable tablet CHEW 1 TABLET BY MOUTH EVERY DAY sucralfate (CARAFATE) 1 gram tablet Take 1 g by mouth four times daily. [facility] NASAL OINTMENT Apply to affected area twice daily. atorvastatin (LIPITOR) 20 mg tablet Take 1 tablet by mouth daily at bedtime. colchicine 0.6 mg tablet Take 0.6 mg by mouth as needed. As needed 1-2 times/week lisinopril (ZESTRIL, PRINIVIL) 10 mg tablet Take 1 tablet by mouth once daily. Please resume this medication after PCP follow up ONETOUCH DELGENESIS PLUS LANCET 33 gauge glipiZIDE (GLUCOTROL) 5 mg tablet Take 5 mg by mouth once daily. ONETOUCH ULTRA BLUE TEST STRIP test strip cholecalciferol (VITAMIN D3) 1,000 unit tab tablet 1,000 Units once daily. Only taking 500 units LABORATORY VALUES: Hemoglobin (g/dL) Date Value 08/14/2022 7.3 09/17/2021 7.9 Hematocrit (%) Date Value 08/14/2022 23.6 09/17/2021 24.9 WBC (k/uL) Date Value 08/07/2022 1.65 09/17/2021 2.44 Platelet Count (k/uL) Date Value 08/07/2022 76 09/17/2021 83 DIAGNOSIS: (D46.9) Myelodysplastic syndrome (HCC) (primary encounter diagnosis) (N18.4, D63.1) Anemia of chronic renal failure, stage 4 (severe) (HCC) (D50.0) 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 loss (I50.41) 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) PAST MEDICAL HISTORY Diagnosis Date Anemia Anemia of chronic renal failure, stage 4 (severe) (HCC) 08/23/2020 Atrial fibrillation (HCC) Chronic kidney disease CRF (chronic renal failure), stage 4 (severe) (HCC) 08/23/2020 Diabetes mellitus (HCC) GI bleed Hypertension 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 loss 06/15/2020 Leukopenia Sleep apnea Thrombocytopenia (HCC) PAST SURGICAL HISTORY Procedure Laterality Date COLONOSCOPY Social History Tobacco Use Smoking status: Former Types: Pipe Quit date: 1994 Years since quittin.0 Passive exposure: Past Smokeless tobacco: Never Vaping Use Vaping Use: Never used Substance Use Topics Alcohol use: Not Currently Drug use: Not Currently No family history on file. Wilfred Martinez APRN.[facility] Hematology and Oncology Services Provided at: [place], [place] CC: Dr. Flash Gomez (Cardiology [facility]) Dr. Oumou Esposito I spent a total of 30 minutes on the date of the service which included preparing to see the patient, [id number] patient care, completing clinical documentation, obtaining and/or reviewing separately obtained history, performing a medically appropriate examination, counseling and educating the patient/family/caregiver, ordering medications, tests, or procedures, independently interpreting results (not separately reported), and communicating results to the patient/family/caregiver. documented in this encounter [facility] 08-13-2022 Miscellaneous Notes Addended by: ASHER HUMMEL on: 08/13/2022 06:04 PM Modules accepted: Orders Patient has an appt on 08/14/22. Would you like labs, if so place orders.Opal Campbell MA documented in this encounter [facility] 08-07-2022 Note [facility] 08-07-2022 Instructions Asher Hummel MD - 08/07/2022 3:54 PM EST Continue weekly low dose decitabine Await luspatercept approval Transfusion needed tomorrow/Friday, hgb 7.2 RTC in 1 week for labs and continue treatment. Decitabine Retacrit Recommended ensure/boost for increased calories documented in this encounter [facility] 08-07-2022 History of Present illness Narrative Images from the original note were not included. NAME: Sandip Broussard CLINIC NO.: [id number] DATE OF SERVICE: August 07, 2022 (Estephanie) Some elements in this clinic note that are critical to medical decision making have been carefully reviewed and included from a prior clinic note dated: July 30, 2022 (Lori) Referring Provider: Dr. Flash Pearl Additional Clinicians involved in Sandip Broussard's care: Dr. José Luis Velasquez, Dr. Oumou Wade, Dr. Karen Esposito CC: MDS ASSESSMENT: 81 year old year old man with MDS, stage 4 chronic kidney disease and iron deficiency anemia d/t GI blood loss (seen on capsule endoscopy) and epistaxis. Was receiving high dose EPO every 2 weeks with periodic iron infusions. With persisting cytopenia we started him on Vidaza low dose to see if we could positively impact his pancytopenia and reduce his fatigue as well as his Epo usage. Unfortunately he suffered an acute [place] 11/23/2021 and also developed another GI bleed. He was transfused, and medically managed after catheterization. 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 He was requiring transfusion of PRBCs every 3-4 weeks and there was question of if he was responding to Vidaza. He was seen by Dr. 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 Unfortunately treatment is getting overwhelming for him and does not appear to be working. Plan is to switch to luspateracept, however awaiting insurance approval. NGS Heme: TET2 p.?, [id number], c.4182+1G>A VAF: 44.5% TET2 p.[id number], [id number], c.5618T>C VAF: 40% ZRSR2 p.R30Vfs*8, [id number], c.88delC VAF: 91.1% And the following variant(s) of uncertain significance: BCORL1 p.R72W [id number]: c.214C>T VAF: 100% PLAN: Continue weekly low dose decitabine Await luspatercept approval Transfusion needed tomorrow/Luis Daniel, hgb 7.2 RTC in 1 week for labs and continue treatment. Decitabine Retacrit Recommended ensure/boost for increased calories TREATMENT TO DATE: 4. 05/20/2022 - Low dose Decitabine weekly. 3. 07/09/2021 - 04/08/2022: Vidaza D1-5 q 28. 2. Retacrit 80,000 units every week. 1. Intermittent IV Iron. HPI: Updated Visit, August 07, 2022: Don returns and has decreased Hgb/Hct and will send for transfusion later this week. No updates on current plan of care. Discussed the unfortunate reality of his prognosis and potential for Luspatercept to impact change for which there is emerging evidence. Remains hopefull that treatment gets approved. Updated Visit, July 30, 2022: Lloyd returns with his today. No changes. Still awaiting luspateracept approval. Still requiring 3 Liters of Oxygen. No fever, chills, cough or shortness of breath. Appetite declined some and he has lost a few pounds. No vomiting. He just doesn't get hungry. Updated Visit, July 23, 2022: Lloyd returns with his Nicki. They had a pretty bad week. Nicki - bladder cancer Pipes froze Wasn't too happy with prognosis laid out by Dr. Esposito. Dr. Esposito and I spoke about his treatment plan and will change him over to luspatercept as retacrit is not working and decitabine also is not improving his transfusion need. He will need a transfusion this week. Updated Visit, July 15, 2022: Lloyd is back with Nicki. He has had no real change clinically. Has to split his treatment this week. Will transfuse due to logistics for his . Updated Visit, July 08, 2022: Lloyd returns for follow up. No new symptoms. His shortness of breath remains the same. Did not have PRBCs last week, however today his hgb is 7.4. Denies any fevers, chills, nausea, vomiting cough or shortness of breath. Has appointment with Dr. Esposito next week. Updated Visit, July 01, 2022: Stable No significant new symptoms - dyspnea is unchanged. Was transfused last week with 2 units with Hgb 8.1 - today is 8.3. Will hold off for [address] Esposito on 07/16/2022 Updated Visit, June 24, 2022: Sandip Broussard returns for follow-up and treatment. He remains on weekly decitabine on Mondays and Tuesdays. He is tolerating treatment well. He denies fevers, chills, night sweats and signs/symptoms of infection. He denies any abnormal bleeding. He does bruise easily. He is having fatigue. He notices himself sleeping more. He has chronic unchanged shortness of breath. Overall, he is doing well. Updated Visit, June 17, 2022: Lloyd returns with his lissette. His left deltoid improving after his decitabine shot 2 weeks ago. Skin had pulled off with it. Still reddened. Hgb 8.4 today Last transfusion was on 06/12/2022. Overall feels pretty good. Exam of left posterior upper arm is with slight erythema and induration with superficial and shallow ulcer of skin 0.5 cm diameter. Area of induration is 1.5 cm diameter. Updated Visit, June 10, 2022: On antibiotic, cefuroxime 500mg BID for ear infection per dr pearl since 05/29/2022, Rafael hartmann. He stopped it early, but his ear started bothering him again so he restarted it. Denies any fevers, chills. Does have an open area on his left deltoid following his dacogen injection from 06/04/22. No drainage. Still with dyspnea and dizziness. Updated Visit, June 03, 2022: Lloyd is in a wheelchair today and reports getting light headed and dyspneic with standing and light activity. Hgb 6.5 today and will need transfusions this week with recheck on Friday. Continue current plan for low dose Decitabine. Will watch platelet counts and monitor neutropenia. Updated Visit, May 20, 2022: Lloyd returns with his Nicki. He was transfused 2 weeks ago. Presents to start dacogen today. Feels weak today and will need transfusion support. Education and consent done and obtained today. Updated Visit, May 06, 2022: Reviewed bone marrow results and labs with them. Will discuss with my colleague Dr. Esposito with respect to starting Dacogen. 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 Will need retacrit today and weekly as well as PRBC transfusion Updated Visit, April 29, 2022: Lloyd returns and has ongoing cytopenias. Awaiting bone marrow biopsy results. Will continue retacrit weekly. No need for transfusion today. Updated Visit, April 22, 2022: Patient saw Dr. Esposito (recommendations are above). Feels about the same. Hgb today is 7.5 Bone marrow scheduled for 04/25/22 Updated Visit, April 08, 2022: Hgb 8.1 today after transfusion 5 days ago. Due to See Dr. Esposito next 04/18/2022 Will cancel Vidaza for now. Continue aranesp Maintain transfusion support. Updated Visit, March 11, 2022: Unfortunately Lloyd is not maintaining any response to single agent Vidaza and remains transfusion dependent. I spoke with him and his his about seeking an opinion downtown with our Leukemia group as well as Hospice. It was a tearfu meeting as lissette is significantly younger than Lloyd. Updated Visit, February 11, 2022: Patient received 2 units of PRBC on 02/05/22 for hgb of 6.8. Saw cardiology today no changes. Denies any fevers, chill, nausea or vomiting. Overall, other than his normal fatigue, he feels well. Updated Visit, January 14, 2022: Lloyd in good spirit returns to continue treatments for MDS. I think we are making some progress as we haven't had to transfuse him in 4 weeks. WBC counts always start low at the beginning of each cycle but after D5, improve significantly. Hasn't been transfused for 4 weeks - anticipate need this week. Using BiPap and can sleep in bed now. Updated Visit, December 17, 2021: Lloyd is 81 years old and returns with his Lissette in follow-up. He feels much better having had several units transfused and now has a hemoglobin of 10.2. We revisited the discussion of pursuing treatment versus hospice and he is still indeterminant. We discussed pursuing a few more cycles and then reconsidering at that time. He does have some evidence of improvement with improving white blood cell count as well as platelet count improvement. He feels really good following his transfusion and wishes to proceed. Updated Visit, November 29, 2021: Lloyd returns unfortunately had Afib and heart failure with AMI and significant MV regurg. Fatigued. Will consider Hospice. Hold treatment for now and reconsider in 3-4 weeks. Also recovering from pneumonia. Reviewed outside records. Updated Visit, October 25, 2021: Sanidp Broussard returns for scheduled follow up. He states that he is feeling slow . He has shortness of breath all the time. He denies any dizziness. He denies any abnormal blood loss. Updated Visit, October 01, 2021: Lloyd is 80 years old and returns with his Lissette for treatment with low-dose Vidaza. He appears to be having some response with improving platelet counts. His only complaints are that of increased abdominal gas. He is otherwise doing well. Continue Retacrit and treatment as recommended. He is safe to proceed. Sees ENT next week No more nose bleeds after stopping Eliquis. Updated Visit, September 17, 2021: Sandip Broussard returns for scheduled follow-up. Since his last visit there has been no significant medical changes. He denies bleeding and abnormal bruising. He denies fevers, chills, night sweats and signs/symptoms of infection. Overall, he feels fairly well. Updated Visit, September 03, 2021: BP improved. Labs stable and platelets have recovered. Was transfused last week and feels better. Neutropenia is disease related and we will continue with treatment. Continue retacrit as Ordered. Transfuse periodically. Updated Visit, August 24, 2021: Lloyd returns today prior to Retacrit during his 2 weeks following Vidaza. Has been having some pain at the base of his skull and is having some dizziness. BP is low - stop Norvasc and Hytrin, and hold Aldactone for now. It is their anniversary today - 49th! Updated Visit, August 06, 2021: Lloyd returns today for follow up and cycle 2 of vidaza. Feeling well. Ran out of his diuretic for a week and had some JANG. Was able to get his medications refilled and is feeling better now. No swelling, chest pain, dizziness, fever, chills or other concerning symptoms. Updated Visit, July 19, 2021: Sandip Broussard returns for follow-up. He received his first cycle of Vidaza 07/09/2021 through 07/13/2021. Overall, he tolerated treatment well without any side effects. He is doing well today and offers no new particular complaints. Updated Visit, July 09, 2021: Hasn't required transfusion since 06/2020. Still profoundly anemic despite adequate dosing of aranesp for CKD. Will proceed with low dose Vidaza. Reviewed plan and goals again. Updated Visit, May 31, 2021: EPO was increased to 80,000 units about 2 weeks ago. Feels the same. reports he still spends most of his day on the couch napping. Patient denies any bleeding. Does have diarrhea, which he has had for over 3 months. 2 loose stools a day. Afraid to go places because of the urgency a/w it. Patient denies bleeding. Does not want to see GI at this time. Has not taken anything for it. No new medications. Updated Visit, May 02, 2021: Lloyd returns with his Lissette and reports that he can't exert himself too much but can get out to the barn and doesn't get dizzy anymore. Still not responding as robustly to increased EPO, so will increase to 80k every 2 weeks. Updated Visit, March 07, 2021: Lloyd returns with his Lissette and was seen by Dr. Wade approximately 1 week ago from ENT. Patient was a little bit confused on instructions given and so I reviewed the recommendations and clarified for Lloyd exactly what his regimen should be. This includes stopping Eliquis as well as aspirin. He appears to be stable from a laboratory perspective but continues to have low platelets and generalized pancytopenia. We discussed again, the goal of his treatment and interventions to be palliative as he requested. He feels well today. Updated Visit, February 21, 2021: Nose bleed Friday- ER plugged it up but then went back on Friday hospitalized until this morning Still seeping blood. Operated on nose- surgery w/ Dr. Marshall Last fall in [place]. Has tranexamic acid at home. Requesting ENT referral at [facility]. He is dehydrated and not keeping up with fluids. Partition Setter is elevated exacerbating cause was likely letting his CPAP reservoir go dry. Ferritin is coming down. Updated Visit, January 10, 2021: Lloyd is here for follow up. After review of his chart, he has stage IV ckd and presented with pancytopenia, including significant anemia requiring transfusion due to GI bleeding and nose bleeds. 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 He has received IV iron in the past along with retacrit, which he is currently receiving every other week. Current goal is quality of life with the least amount visits. He did just have a nose bleed on Friday, and it didn't last long. He made his own plug and kept it in his nose for 24 hours and no additional bleeding. He is taking his eliquis one pill daily, but he held it the last two days due to the nose bleed. He is not on aspirin. Overall he feels well and offers no complaints of significant fatigue, shortness of breath, cough, fever, chills or signs of infections. Updated Visit, November 15, 2020: Sandip Broussard returns for follow-up. He remains on Retacrit 40,000 units every 2 weeks and is tolerating it well. Recently he has noticed pain in the back of his neck. He experienced this same pain when his hemoglobin was low in the past. He states that he takes Tylenol with improvement in the pain. He denies any signs of bleeding. He states that his bruising is better. He is still taking the Eliquis daily at the recommendation of his fashion model. Since stopping the aspirin he has not had any further nosebleeds. He denies fevers, chills, night sweats and signs/symptoms of infection. He has persistent exertional shortness of breath. Updated Visit, September 20, 2020: Lloyd is 79 and returns with his Lissette for discussion on his overall condition as well as his rec to have watchman for A-fib. However, our discussion reveals that he really doesn't want to do anything and that he also doesn't want to take full dose anticoagulation. I pressed him and verified that his goals were to focus on quality of life and get minimally involved in medical procedures. We will continue to monitor his counts and transfuse or give iron and retacrit as necessary, but minimize his follow ups. Updated Visit, August 23, 2020: Lloyd is 79 years old and returns with his Lissette today for multifactorial anemia. His GI bleed was finally found and addressed. They brought in a cake to share in their celebration of their anniversary and Nicki's birthday. He reports that he is no longer lightheaded. Still some fatigue. Now will need Aranesp replacement and iron x 1. He may need low dose dacogen in the future if he is unresponsive. Updated visit, July 26, 2020: Lloyd is 79 years old and returns with his Lissette today having had a capsule endoscopy which was positive for GI bleed. This was stopped and he is now recovering from his blood loss anemia. We will continue supporting him with IV iron as needed but for now we will hold off he will continue need B12 and folic acid. He still has underlying myelodysplasia and stage IV chronic kidney disease which is contributing to his anemia but Corine is not bleeding any longer. Updated Visit, July 03, 2020: Lloyd is 79 years old and returns with his Lissette again requiring additional transfusions because of significantly low hemoglobin. I reviewed his bone marrow biopsy with him which is consistent with myelodysplastic syndrome but he has ongoing melena that is highly suspicious for a GI bleed. To date his endoscopic work-up has been negative but he is due to have a capsule endoscopy that hopefully will reveal the cause of his cytopenias. He feels weak and is in a wheelchair today. Updated Visit, June 15, 2020: Conducted by telephone. Sandip Broussard is a 79 year old male seen for pancytopenia recently having had bone marrow biopsy that is most consistent with. 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 Hopefully his iron deficiency can be corrected and perhaps any evidence of GI bleeding can be attenuated. He sees gastroenterology next week. He may need transfusion support before the weekend even though he was just transfused his 17th unit 2 days ago. I reviewed his bone marrow biopsy results with him and his Lissette in some detail. His erythropoietin level is markedly elevated indicating that supplementation would not help and that his renal failure is not contributing to his anemia. Initial Visit, May 29, 2020: Sandip Broussard presents today Hematology and Oncology evaluation. He is a 79 year old male who is accompanied by his Lissette on urgent referral from Dr. Flash Pearl for pancytopenia, hemoglobin of 5 with both recent EGD and colonoscopy demonstrating no evidence of active bleeding but slight chronic gastritis. He also had several epistaxes as blood to the point of requiring transfusions causing lightheadedness and unsteadiness. Patient states he has had black stools since July 2019. So far extensive work-up has been unrevealing. He has had recent hospitalization and was released on 05/26/2020. Full work-up at that time revealed an adequate erythropoietin response despite elevated creatinine and stage III chronic kidney disease. However his white blood cell count remains suppressed as does his platelet count of less than 100,000. Indeed, his epistaxis may be the cause of his melanotic stools but warrants another look and additionally he will need a bone marrow biopsy. His coags are normal. His red blood cell indices only indicate hypochromasia and macrocytosis. Patient had a bleeding scan that was negative as well. REVIEW OF SYSTEMS Per HPI and otherwise negative by full review of organ systems. ECOG PERFORMANCE STATUS: 2 PHYSICAL EXAMINATION: Vitals: BP 112/57[recheck[ Pulse 71 Temp (Src) 97.8 (Temporal) Resp 16 Ht 5' 5.394 (1.66m) Wt 227 lb (103.0kg) SpO2 94[O2 @ 3L]% BMI 37.32 kg/(m^2). Body surface area is 2.18 meters squared. General: Alert and oriented, no distress, pleasant and cooperative. In wheelchair Heart: Regular, normal S1 and S2, no murmurs, rubs, or gallops Lungs: Nonlabored, on O2 Abdomen: Benign Extremities: Feet/ankles without edema, posterior tibial pulses full and symmetrical ALLERGIES: ALLERGIES Allergen Reactions Bee Stings [Other] large hives, swelling at site Coreg [Carvedilol] Hives MEDICATIONS: ondansetron (ZOFRAN) 8 mg tablet Take 1 tablet by mouth every 8 hours as needed for nausea/vomiting. prochlorperazine (COMPAZINE) 10 mg tablet Take 1 tablet by mouth every 6 hours as needed. omeprazole (PRILOSEC) 40 mg capsule Take 40 mg by mouth once daily. bumetanide (BUMEX) 1 mg tablet Take 1 mg by mouth every morning. potassium chloride SR (MICRO-K) 10 mEq CR capsule Take 10 mEq by mouth once daily. FARXIGA 10 mg tablet Take 10 mg by mouth daily with breakfast. metoprolol succinate ER (TOPROL XL) 25 mg 24 hr tablet Take 25 mg by mouth once daily. spironolactone (ALDACTONE) 25 mg tablet Take 25 mg by mouth once daily. aspirin 81 mg chewable tablet CHEW 1 TABLET BY MOUTH EVERY DAY sucralfate (CARAFATE) 1 gram tablet Take 1 g by mouth four times daily. [facility] NASAL OINTMENT Apply to affected area twice daily. atorvastatin (LIPITOR) 20 mg tablet Take 1 tablet by mouth daily at bedtime. colchicine 0.6 mg tablet Take 0.6 mg by mouth as needed. As needed 1-2 times/week ONETOUCH DELICA PLUS LANCET 33 gauge glipiZIDE (GLUCOTROL) 5 mg tablet Take 5 mg by mouth once daily. ONETOUCH ULTRA BLUE TEST STRIP test strip cholecalciferol (VITAMIN D3) 1,000 unit tab tablet 1,000 Units once daily. Only taking 500 units lisinopril (ZESTRIL, PRINIVIL) 10 mg tablet Take 1 tablet by mouth once daily. Please resume this medication after PCP follow up LABORATORY VALUES: WBC (k/uL) Date Value 08/07/2022 1.65 (L) RBC (m/uL) Date Value 08/07/2022 2.38 (L) Hemoglobin (g/dL) Date Value 08/07/2022 7.2 (L) Hematocrit (%) Date Value 08/07/2022 23.4 (L) MCV (fL) Date Value 08/07/2022 98.3 MCH (pg) Date Value 08/07/2022 30.3 MCHC (g/dL) Date Value 08/07/2022 30.8 RDW-CV (%) Date Value 08/07/2022 16.4 (H) Platelet Count (k/uL) Date Value 08/07/2022 76 (L) MPV (fL) Date Value 08/07/2022 15.0 (H) Glucose (mg/dL) Date Value 08/07/2022 138 (H) BUN (mg/dL) Date Value 08/07/2022 27 (H) Creatinine (mg/dL) Date Value 08/07/2022 1.54 (H) Sodium (mmol/L) Date Value 08/07/2022 143 Potassium (mmol/L) Date Value 08/07/2022 4.2 Chloride (mmol/L) Date Value 08/07/2022 102 CO2 (mmol/L) Date Value 08/07/2022 32 (H) Protein, Total (g/dL) Date Value 08/07/2022 6.1 (L) Albumin (g/dL) Date Value 08/07/2022 3.9 Calcium, Total (mg/dL) Date Value 08/07/2022 9.0 Alkaline Phosphatase (U/L) Date Value 08/07/2022 144 (H) Bilirubin, Total (mg/dL) Date Value 08/07/2022 1.0 AST (U/L) Date Value 08/07/2022 31 ALT (U/L) Date Value 08/07/2022 64 (H) Cholesterol, Total (mg/dL) Date Value 06/27/2005 153 Triglyceride (mg/dL) Date Value 06/27/2005 144 DIAGNOSIS: (D46.9) MDS (myelodysplastic syndrome) (HCC) (primary encounter diagnosis) (N18.4, D63.1) Anemia of chronic renal failure, stage 4 (severe) (HCC) (N18.4) CRF (chronic renal failure), stage 4 (severe) (HCC) (E83.111) 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 transfusions (D46.9) Myelodysplastic syndrome (HCC) PAST MEDICAL HISTORY Diagnosis Date Anemia Anemia of chronic renal failure, stage 4 (severe) (HCC) 08/23/2020 Atrial fibrillation (HCC) Chronic kidney disease CRF (chronic renal failure), stage 4 (severe) (HCC) 08/23/2020 Diabetes mellitus (HCC) GI bleed Hypertension 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 loss 06/15/2020 Leukopenia Sleep apnea Thrombocytopenia (HCC) PAST SURGICAL HISTORY Procedure Laterality Date COLONOSCOPY Social History Tobacco Use Smoking status: Former Types: Pipe Quit date: 1994 Years since quittin.0 Passive exposure: Past Smokeless tobacco: Never Vaping Use Vaping Use: Never used Substance Use Topics Alcohol use: Not Currently Drug use: Not Currently No family history on file. I spent a total of 30 minutes on the date of the service which included preparing to see the patient, [id number] patient care, completing clinical documentation, obtaining and/or reviewing separately obtained history, performing a medically appropriate examination, counseling and educating the patient/family/caregiver, ordering medications, tests, or procedures, communicating with other HCPs (not separately reported), and independently interpreting results (not separately reported). Asher Hummel MD, CPE Hematology and Oncology Services Provided at: [place], [place] CC: Dr. Flash Gomez (Cardiology [facility]) Dr. Oumou Esposito documented in this encounter [facility] 07-30-2022 Note [facility] 07-30-2022 History of Present illness Narrative Images from the original note were not included. NAME: Sandip Broussard CLINIC NO.: [id number] DATE OF SERVICE: July 30, 2022 (Lori (Elements copied from Dr. Hummel's note dated July 23, 2022, have been reviewed and updated where appropriate, and all reflect current assessment and medical decision making during today's encounter, July 30, 2022) Referring Provider: Dr. Flash Pearl Additional Clinicians involved in Sandip Broussard's care: Dr. José Luis Velasquez, Dr. Oumou Wade, Dr. Karen Esposito CC: MDS ASSESSMENT: 81 year old year old man with MDS, stage 4 chronic kidney disease and iron deficiency anemia d/t GI blood loss (seen on capsule endoscopy) and epistaxis. Was receiving high dose EPO every 2 weeks with periodic iron infusions. With persisting cytopenia we started him on Vidaza low dose to see if we could positively impact his pancytopenia and reduce his fatigue as well as his Epo usage. Unfortunately he suffered an acute [place] 11/23/2021 and also developed another GI bleed. He was transfused, and medically managed after catheterization. 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 He was requiring transfusion of PRBCs every 3-4 weeks and there was question of if he was responding to Vidaza. He was seen by Dr. 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 Unfortunately treatment is getting overwhelming for him and does not appear to be working. Plan is to switch to luspateracept, however awaiting insurance approval. NGS Heme: TET2 p.?, [id number], c.4182+1G>A VAF: 44.5% TET2 p.[id number], [id number], c.5618T>C VAF: 40% ZRSR2 p.R30Vfs*8, [id number], c.88delC VAF: 91.1% And the following variant(s) of uncertain significance: BCORL1 p.R72W [id number]: c.214C>T VAF: 100% PLAN: Continue weekly low dose decitabine Await luspatercept approval No transfusion needs today, hgb 8.6 B12 today and monthly RTC in 1 week for labs and continue treatment. Recommended ensure/boost for increased calories TREATMENT TO DATE: 4. 05/20/2022 - Low dose Decitabine weekly. 3. 07/09/2021 - 04/08/2022: Vidaza D1-5 q 28. 2. Retacrit 80,000 units every week. 1. Intermittent IV Iron. HPI: Updated Visit, July 30, 2022: Lloyd returns with his today. No changes. Still awaiting luspateracept approval. Still requiring 3 Liters of Oxygen. No fever, chills, cough or shortness of breath. Appetite declined some and he has lost a few pounds. No vomiting. He just doesn't get hungry. Updated Visit, July 23, 2022: Lloyd returns with his Nicki. They had a pretty bad week. Nicki - bladder cancer Pipes froze Wasn't too happy with prognosis laid out by Dr. Esposito. Dr. Esposito and I spoke about his treatment plan and will change him over to luspatercept as retacrit is not working and decitabine also is not improving his transfusion need. He will need a transfusion this week. Updated Visit, July 15, 2022: Lloyd is back with Nicki. He has had no real change clinically. Has to split his treatment this week. Will transfuse due to logistics for his . Updated Visit, July 08, 2022: Lloyd returns for follow up. No new symptoms. His shortness of breath remains the same. Did not have PRBCs last week, however today his hgb is 7.4. Denies any fevers, chills, nausea, vomiting cough or shortness of breath. Has appointment with Dr. Esposito next week. Updated Visit, July 01, 2022: Stable No significant new symptoms - dyspnea is unchanged. Was transfused last week with 2 units with Hgb 8.1 - today is 8.3. Will hold off for [address] Esposito on 07/16/2022 Updated Visit, June 24, 2022: Sandip Broussard returns for follow-up and treatment. He remains on weekly decitabine on Mondays and Tuesdays. He is tolerating treatment well. He denies fevers, chills, night sweats and signs/symptoms of infection. He denies any abnormal bleeding. He does bruise easily. He is having fatigue. He notices himself sleeping more. He has chronic unchanged shortness of breath. Overall, he is doing well. Updated Visit, June 17, 2022: Lloyd returns with his lissette. His left deltoid improving after his decitabine shot 2 weeks ago. Skin had pulled off with it. Still reddened. Hgb 8.4 today Last transfusion was on 06/12/2022. Overall feels pretty good. Exam of left posterior upper arm is with slight erythema and induration with superficial and shallow ulcer of skin 0.5 cm diameter. Area of induration is 1.5 cm diameter. Updated Visit, June 10, 2022: On antibiotic, cefuroxime 500mg BID for ear infection per dr pearl since 05/29/2022, Rafael hartmann. He stopped it early, but his ear started bothering him again so he restarted it. Denies any fevers, chills. Does have an open area on his left deltoid following his dacogen injection from 06/04/22. No drainage. Still with dyspnea and dizziness. Updated Visit, June 03, 2022: Lloyd is in a wheelchair today and reports getting light headed and dyspneic with standing and light activity. Hgb 6.5 today and will need transfusions this week with recheck on Friday. Continue current plan for low dose Decitabine. Will watch platelet counts and monitor neutropenia. Updated Visit, May 20, 2022: Lloyd returns with his Nicki. He was transfused 2 weeks ago. Presents to start dacogen today. Feels weak today and will need transfusion support. Education and consent done and obtained today. Updated Visit, May 06, 2022: Reviewed bone marrow results and labs with them. Will discuss with my colleague Dr. Esposito with respect to starting Dacogen. 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 Will need retacrit today and weekly as well as PRBC transfusion Updated Visit, April 29, 2022: Lloyd returns and has ongoing cytopenias. Awaiting bone marrow biopsy results. Will continue retacrit weekly. No need for transfusion today. Updated Visit, April 22, 2022: Patient saw Dr. Esposito (recommendations are above). Feels about the same. Hgb today is 7.5 Bone marrow scheduled for 04/25/22 Updated Visit, April 08, 2022: Hgb 8.1 today after transfusion 5 days ago. Due to See Dr. Esposito next 04/18/2022 Will cancel Vidaza for now. Continue aranesp Maintain transfusion support. Updated Visit, March 11, 2022: Unfortunately Lloyd is not maintaining any response to single agent Vidaza and remains transfusion dependent. I spoke with him and his his about seeking an opinion downtown with our Leukemia group as well as Hospice. It was a tearfu meeting as lissette is significantly younger than Lloyd. Updated Visit, February 11, 2022: Patient received 2 units of PRBC on 02/05/22 for hgb of 6.8. Saw cardiology today no changes. Denies any fevers, chill, nausea or vomiting. Overall, other than his normal fatigue, he feels well. Updated Visit, January 14, 2022: Lloyd in good spirit returns to continue treatments for MDS. I think we are making some progress as we haven't had to transfuse him in 4 weeks. WBC counts always start low at the beginning of each cycle but after D5, improve significantly. Hasn't been transfused for 4 weeks - anticipate need this week. Using BiPap and can sleep in bed now. Updated Visit, December 17, 2021: Lloyd is 81 years old and returns with his Lissette in follow-up. He feels much better having had several units transfused and now has a hemoglobin of 10.2. We revisited the discussion of pursuing treatment versus hospice and he is still indeterminant. We discussed pursuing a few more cycles and then reconsidering at that time. He does have some evidence of improvement with improving white blood cell count as well as platelet count improvement. He feels really good following his transfusion and wishes to proceed. Updated Visit, November 29, 2021: Lloyd returns unfortunately had Afib and heart failure with AMI and significant MV regurg. Fatigued. Will consider Hospice. Hold treatment for now and reconsider in 3-4 weeks. Also recovering from pneumonia. Reviewed outside records. Updated Visit, October 25, 2021: Sandip Broussard returns for scheduled follow up. He states that he is feeling slow . He has shortness of breath all the time. He denies any dizziness. He denies any abnormal blood loss. Updated Visit, October 01, 2021: Lloyd is 80 years old and returns with his Lissette for treatment with low-dose Vidaza. He appears to be having some response with improving platelet counts. His only complaints are that of increased abdominal gas. He is otherwise doing well. Continue Retacrit and treatment as recommended. He is safe to proceed. Sees ENT next week No more nose bleeds after stopping Eliquis. Updated Visit, September 17, 2021: Sandip Broussard returns for scheduled follow-up. Since his last visit there has been no significant medical changes. He denies bleeding and abnormal bruising. He denies fevers, chills, night sweats and signs/symptoms of infection. Overall, he feels fairly well. Updated Visit, September 03, 2021: BP improved. Labs stable and platelets have recovered. Was transfused last week and feels better. Neutropenia is disease related and we will continue with treatment. Continue retacrit as Ordered. Transfuse periodically. Updated Visit, August 24, 2021: Lloyd returns today prior to Retacrit during his 2 weeks following Vidaza. Has been having some pain at the base of his skull and is having some dizziness. BP is low - stop Norvasc and Hytrin, and hold Aldactone for now. It is their anniversary today - 49th! Updated Visit, August 06, 2021: Lloyd returns today for follow up and cycle 2 of vidaza. Feeling well. Ran out of his diuretic for a week and had some JANG. Was able to get his medications refilled and is feeling better now. No swelling, chest pain, dizziness, fever, chills or other concerning symptoms. Updated Visit, July 19, 2021: Sandip Broussard returns for follow-up. He received his first cycle of Vidaza 07/09/2021 through 07/13/2021. Overall, he tolerated treatment well without any side effects. He is doing well today and offers no new particular complaints. Updated Visit, July 09, 2021: Hasn't required transfusion since 06/2020. Still profoundly anemic despite adequate dosing of aranesp for CKD. Will proceed with low dose Vidaza. Reviewed plan and goals again. Updated Visit, May 31, 2021: EPO was increased to 80,000 units about 2 weeks ago. Feels the same. reports he still spends most of his day on the couch napping. Patient denies any bleeding. Does have diarrhea, which he has had for over 3 months. 2 loose stools a day. Afraid to go places because of the urgency a/w it. Patient denies bleeding. Does not want to see GI at this time. Has not taken anything for it. No new medications. Updated Visit, May 02, 2021: Lloyd returns with his Lissette and reports that he can't exert himself too much but can get out to the barn and doesn't get dizzy anymore. Still not responding as robustly to increased EPO, so will increase to 80k every 2 weeks. Updated Visit, March 07, 2021: Lloyd returns with his Lissette and was seen by Dr. Wade approximately 1 week ago from ENT. Patient was a little bit confused on instructions given and so I reviewed the recommendations and clarified for Lloyd exactly what his regimen should be. This includes stopping Eliquis as well as aspirin. He appears to be stable from a laboratory perspective but continues to have low platelets and generalized pancytopenia. We discussed again, the goal of his treatment and interventions to be palliative as he requested. He feels well today. Updated Visit, February 21, 2021: Nose bleed Friday- ER plugged it up but then went back on Friday hospitalized until this morning Still seeping blood. Operated on nose- surgery w/ Dr. Marshall Last fall in [place]. Has tranexamic acid at home. Requesting ENT referral at [facility]. He is dehydrated and not keeping up with fluids. Partition Setter is elevated exacerbating cause was likely letting his CPAP reservoir go dry. Ferritin is coming down. Updated Visit, January 10, 2021: Lloyd is here for follow up. After review of his chart, he has stage IV ckd and presented with pancytopenia, including significant anemia requiring transfusion due to GI bleeding and nose bleeds. 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 He has received IV iron in the past along with retacrit, which he is currently receiving every other week. Current goal is quality of life with the least amount visits. He did just have a nose bleed on Friday, and it didn't last long. He made his own plug and kept it in his nose for 24 hours and no additional bleeding. He is taking his eliquis one pill daily, but he held it the last two days due to the nose bleed. He is not on aspirin. Overall he feels well and offers no complaints of significant fatigue, shortness of breath, cough, fever, chills or signs of infections. Updated Visit, November 15, 2020: Sandip Broussard returns for follow-up. He remains on Retacrit 40,000 units every 2 weeks and is tolerating it well. Recently he has noticed pain in the back of his neck. He experienced this same pain when his hemoglobin was low in the past. He states that he takes Tylenol with improvement in the pain. He denies any signs of bleeding. He states that his bruising is better. He is still taking the Eliquis daily at the recommendation of his fashion model. Since stopping the aspirin he has not had any further nosebleeds. He denies fevers, chills, night sweats and signs/symptoms of infection. He has persistent exertional shortness of breath. Updated Visit, September 20, 2020: Lloyd is 79 and returns with his Lissette for discussion on his overall condition as well as his rec to have watchman for A-fib. However, our discussion reveals that he really doesn't want to do anything and that he also doesn't want to take full dose anticoagulation. I pressed him and verified that his goals were to focus on quality of life and get minimally involved in medical procedures. We will continue to monitor his counts and transfuse or give iron and retacrit as necessary, but minimize his follow ups. Updated Visit, August 23, 2020: Lloyd is 79 years old and returns with his Lissette today for multifactorial anemia. His GI bleed was finally found and addressed. They brought in a cake to share in their celebration of their anniversary and Nicki's birthday. He reports that he is no longer lightheaded. Still some fatigue. Now will need Aranesp replacement and iron x 1. He may need low dose dacogen in the future if he is unresponsive. Updated visit, July 26, 2020: Lloyd is 79 years old and returns with his Lissette today having had a capsule endoscopy which was positive for GI bleed. This was stopped and he is now recovering from his blood loss anemia. We will continue supporting him with IV iron as needed but for now we will hold off he will continue need B12 and folic acid. He still has underlying myelodysplasia and stage IV chronic kidney disease which is contributing to his anemia but Corine is not bleeding any longer. Updated Visit, July 03, 2020: Lloyd is 79 years old and returns with his Lissette again requiring additional transfusions because of significantly low hemoglobin. I reviewed his bone marrow biopsy with him which is consistent with myelodysplastic syndrome but he has ongoing melena that is highly suspicious for a GI bleed. To date his endoscopic work-up has been negative but he is due to have a capsule endoscopy that hopefully will reveal the cause of his cytopenias. He feels weak and is in a wheelchair today. Updated Visit, June 15, 2020: Conducted by telephone. Sandip Broussard is a 79 year old male seen for pancytopenia recently having had bone marrow biopsy that is most consistent with. 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 Hopefully his iron deficiency can be corrected and perhaps any evidence of GI bleeding can be attenuated. He sees gastroenterology next week. He may need transfusion support before the weekend even though he was just transfused his 17th unit 2 days ago. I reviewed his bone marrow biopsy results with him and his Lissette in some detail. His erythropoietin level is markedly elevated indicating that supplementation would not help and that his renal failure is not contributing to his anemia. Initial Visit, May 29, 2020: Sandip Broussard presents today Hematology and Oncology evaluation. He is a 79 year old male who is accompanied by his Lissette on urgent referral from Dr. Flash Pearl for pancytopenia, hemoglobin of 5 with both recent EGD and colonoscopy demonstrating no evidence of active bleeding but slight chronic gastritis. He also had several epistaxes as blood to the point of requiring transfusions causing lightheadedness and unsteadiness. Patient states he has had black stools since July 2019. So far extensive work-up has been unrevealing. He has had recent hospitalization and was released on 05/26/2020. Full work-up at that time revealed an adequate erythropoietin response despite elevated creatinine and stage III chronic kidney disease. However his white blood cell count remains suppressed as does his platelet count of less than 100,000. Indeed, his epistaxis may be the cause of his melanotic stools but warrants another look and additionally he will need a bone marrow biopsy. His coags are normal. His red blood cell indices only indicate hypochromasia and macrocytosis. Patient had a bleeding scan that was negative as well. REVIEW OF SYSTEMS Per HPI and otherwise negative by full review of organ systems. ECOG PERFORMANCE STATUS: 2 PHYSICAL EXAMINATION: Vitals: There were no vitals taken for this visit. There is no height or weight on file to calculate BSA. General: Alert and oriented, no distress, pleasant and cooperative. In wheelchair Heart: Regular, normal S1 and S2, no murmurs, rubs, or gallops Lungs: Nonlabored, on O2 Abdomen: Benign Extremities: Feet/ankles without edema, posterior tibial pulses full and symmetrical ALLERGIES: ALLERGIES Allergen Reactions Bee Stings [Other] large hives, swelling at site Coreg [Carvedilol] Hives MEDICATIONS: ondansetron (ZOFRAN) 8 mg tablet Take 1 tablet by mouth every 8 hours as needed for nausea/vomiting. prochlorperazine (COMPAZINE) 10 mg tablet Take 1 tablet by mouth every 6 hours as needed. omeprazole (PRILOSEC) 40 mg capsule Take 40 mg by mouth once daily. bumetanide (BUMEX) 1 mg tablet Take 1 mg by mouth every morning. potassium chloride SR (MICRO-K) 10 mEq CR capsule Take 10 mEq by mouth once daily. FARXIGA 10 mg tablet Take 10 mg by mouth daily with breakfast. metoprolol succinate ER (TOPROL XL) 25 mg 24 hr tablet Take 25 mg by mouth once daily. spironolactone (ALDACTONE) 25 mg tablet Take 25 mg by mouth once daily. aspirin 81 mg chewable tablet CHEW 1 TABLET BY MOUTH EVERY DAY sucralfate (CARAFATE) 1 gram tablet Take 1 g by mouth four times daily. [facility] NASAL OINTMENT Apply to affected area twice daily. atorvastatin (LIPITOR) 20 mg tablet Take 1 tablet by mouth daily at bedtime. colchicine 0.6 mg tablet Take 0.6 mg by mouth as needed. As needed 1-2 times/week lisinopril (ZESTRIL, PRINIVIL) 10 mg tablet Take 1 tablet by mouth once daily. Please resume this medication after PCP follow up ONETOUCH DELICA PLUS LANCET 33 gauge glipiZIDE (GLUCOTROL) 5 mg tablet Take 5 mg by mouth once daily. ONETOUCH ULTRA BLUE TEST STRIP test strip cholecalciferol (VITAMIN D3) 1,000 unit tab tablet 1,000 Units once daily. Only taking 500 units LABORATORY VALUES: WBC (k/uL) Date Value 07/23/2022 1.99 (L) RBC (m/uL) Date Value 07/23/2022 2.38 (L) Hemoglobin (g/dL) Date Value 07/23/2022 7.2 (L) Hematocrit (%) Date Value 07/23/2022 23.4 (L) MCV (fL) Date Value 07/23/2022 98.3 MCH (pg) Date Value 07/23/2022 30.3 MCHC (g/dL) Date Value 07/23/2022 30.8 RDW-CV (%) Date Value 07/23/2022 16.6 (H) Platelet Count (k/uL) Date Value 07/23/2022 83 (L) MPV (fL) Date Value 06/24/2022 14.0 (H) Glucose (mg/dL) Date Value 07/23/2022 143 (H) BUN (mg/dL) Date Value 07/23/2022 30 (H) Creatinine (mg/dL) Date Value 07/23/2022 1.68 (H) Sodium (mmol/L) Date Value 07/23/2022 141 Potassium (mmol/L) Date Value 07/23/2022 4.3 Chloride (mmol/L) Date Value 07/23/2022 100 CO2 (mmol/L) Date Value 07/23/2022 32 (H) Protein, Total (g/dL) Date Value 07/23/2022 6.1 (L) Albumin (g/dL) Date Value 07/23/2022 3.8 (L) Calcium, Total (mg/dL) Date Value 07/23/2022 8.9 Alkaline Phosphatase (U/L) Date Value 07/23/2022 117 (H) Bilirubin, Total (mg/dL) Date Value 07/23/2022 1.1 AST (U/L) Date Value 07/23/2022 16 ALT (U/L) Date Value 07/23/2022 36 Cholesterol, Total (mg/dL) Date Value 06/27/2005 153 Triglyceride (mg/dL) Date Value 06/27/2005 144 DIAGNOSIS: No diagnosis found. PAST MEDICAL HISTORY Diagnosis Date Anemia Anemia of chronic renal failure, stage 4 (severe) (HCC) 08/23/2020 Atrial fibrillation (HCC) Chronic kidney disease CRF (chronic renal failure), stage 4 (severe) (HCC) 08/23/2020 Diabetes mellitus (HCC) GI bleed Hypertension 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 loss 06/15/2020 Leukopenia Sleep apnea Thrombocytopenia (HCC) PAST SURGICAL HISTORY Procedure Laterality Date COLONOSCOPY Social History Tobacco Use Smoking status: Former Types: Pipe Quit date: 1994 Years since quittin.0 Passive exposure: Past Smokeless tobacco: Never Vaping Use Vaping Use: Never used Substance Use Topics Alcohol use: Not Currently Drug use: Not Currently No family history on file. Radha Sandoval PA-C CC: Dr. Flash Gomez (Cardiology [facility] [place]) Dr. Oumou Esposito documented in this encounter [facility] 07-25-2022 Miscellaneous Notes Pt's notified that pt did not receive Retacrit injection on 07/23. [facility], pt is being changed to Luspatercept due to not responding to Retacrit. Pts notified and verbalizes understanding. Pt will receive Luspatercept once approved by insurance. Miriam Elizabeth RN documented in this encounter [facility] 07-24-2022 Miscellaneous Notes [facility] called a critical HCT 22.2. Pt is scheduled for PRBC transfusion. They are faxing labs to scan into his chart. BRYNN: Please advise of any new orders Thank you, Fide documented in this encounter [facility] 07-23-2022 Note [facility] 07-23-2022 Miscellaneous Notes Orders received for 1 unit and 2 units of PRBC's. Confirmed with Dr. Hummel who stated 2 units. Call placed to [facility] and had to leave a message to schedule patient for transfusion on . Ada Perez documented in this encounter [facility] 07-23-2022 Instructions Asher Hummel MD - 07/23/2022 2:54 PM EST Continue low dose decitabine weekly x (Friday's) Luspatercept when approved q 21 days. Retacrit today and weekly for Hgb < 12 RTC with 1 week on 07/30/2022 Labs same day. See Wilfred Transfuse this at [facility] x 1 unit documented in this encounter [facility] 07-23-2022 History of Present illness Narrative Images from the original note were not included. NAME: Sandip Broussard CLINIC NO.: [id number] DATE OF SERVICE: July 23, 2022 [facility] Some elements in this clinic note that are critical to medical decision making have been carefully reviewed and included from a prior clinic note dated: July 15, 2022 ([facility]) Referring Provider: Dr. Flash Pearl Additional Clinicians involved in Sandip Broussard's care: Dr. José Luis Velasquez, Dr. Oumou Wade, Dr. Karen Esposito CC: MDS ASSESSMENT: 81 year old year old man with MDS, stage 4 chronic kidney disease and iron deficiency anemia d/t GI blood loss (seen on capsule endoscopy) and epistaxis. Was receiving high dose EPO every 2 weeks with periodic iron infusions. With persisting cytopenia we started him on Vidaza low dose to see if we could positively impact his pancytopenia and reduce his fatigue as well as his Epo usage. Unfortunately he suffered an acute [place] 11/23/2021 and also developed another GI bleed. He was transfused, and medically managed after catheterization. 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 He was requiring transfusion of PRBCs every 3-4 weeks and there was question of if he was responding to Vidaza. He was seen by Dr. 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 Unfortunately treatment is getting overwhelming for him and does not appear to be working. Will plan to switch to luspatercept. NGS Heme: TET2 p.?, [id number], c.4182+1G>A VAF: 44.5% TET2 p.F7804A, [id number], c.5618T>C VAF: 40% ZRSR2 p.R30Vfs*8, [id number], c.88delC VAF: 91.1% And the following variant(s) of uncertain significance: BCORL1 p.R72W [id number]: c.214C>T VAF: 100% PLAN: Continue low dose decitabine weekly x (Friday') Luspatercept when approved q 21 days. Retacrit today and weekly for Hgb < 12 RTC with 1 week on 07/30/2022 Labs same day. See Wilfred Transfuse this at [facility] x 1 unit TREATMENT TO DATE: 4. 05/20/2022 - Low dose Decitabine weekly. 3. 07/09/2021 - 04/08/2022: Vidaza D1-5 q 28. 2. Retacrit 80,000 units every week. 1. Intermittent IV Iron. HPI: Updated Visit, July 23, 2022: Don returns with his Nicki. They had a pretty bad week. Nicki - bladder cancer Pipes froze Wasn't too happy with prognosis laid out by Dr. Esposito. Dr. Esposito and I spoke about his treatment plan and will change him over to luspatercept as retacrit is not working and decitabine also is not improving his transfusion need. He will need a transfusion this week. Updated Visit, July 15, 2022: Lloyd is back with Nicki. He has had no real change clinically. Has to split his treatment this week. Will transfuse due to logistics for his . Updated Visit, July 08, 2022: Lloyd returns for follow up. No new symptoms. His shortness of breath remains the same. Did not have PRBCs last week, however today his hgb is 7.4. Denies any fevers, chills, nausea, vomiting cough or shortness of breath. Has appointment with Dr. Esposito next week. Updated Visit, July 01, 2022: Stable No significant new symptoms - dyspnea is unchanged. Was transfused last week with 2 units with Hgb 8.1 - today is 8.3. Will hold off for [address] Esposito on 07/16/2022 Updated Visit, June 24, 2022: Sandip Broussard returns for follow-up and treatment. He remains on weekly decitabine on Mondays and Tuesdays. He is tolerating treatment well. He denies fevers, chills, night sweats and signs/symptoms of infection. He denies any abnormal bleeding. He does bruise easily. He is having fatigue. He notices himself sleeping more. He has chronic unchanged shortness of breath. Overall, he is doing well. Updated Visit, June 17, 2022: Lloyd returns with his lissette. His left deltoid improving after his decitabine shot 2 weeks ago. Skin had pulled off with it. Still reddened. Hgb 8.4 today Last transfusion was on 06/12/2022. Overall feels pretty good. Exam of left posterior upper arm is with slight erythema and induration with superficial and shallow ulcer of skin 0.5 cm diameter. Area of induration is 1.5 cm diameter. Updated Visit, June 10, 2022: On antibiotic, cefuroxime 500mg BID for ear infection per dr pearl since 05/29/2022, Rafael hartmann. He stopped it early, but his ear started bothering him again so he restarted it. Denies any fevers, chills. Does have an open area on his left deltoid following his dacogen injection from 06/04/22. No drainage. Still with dyspnea and dizziness. Updated Visit, June 03, 2022: Lloyd is in a wheelchair today and reports getting light headed and dyspneic with standing and light activity. Hgb 6.5 today and will need transfusions this week with recheck on Friday. Continue current plan for low dose Decitabine. Will watch platelet counts and monitor neutropenia. Updated Visit, May 20, 2022: Lloyd returns with his Nicki. He was transfused 2 weeks ago. Presents to start dacogen today. Feels weak today and will need transfusion support. Education and consent done and obtained today. Updated Visit, May 06, 2022: Reviewed bone marrow results and labs with them. Will discuss with my colleague Dr. Esposito with respect to starting Dacogen. 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 Will need retacrit today and weekly as well as PRBC transfusion Updated Visit, April 29, 2022: Lloyd returns and has ongoing cytopenias. Awaiting bone marrow biopsy results. Will continue retacrit weekly. No need for transfusion today. Updated Visit, April 22, 2022: Patient saw Dr. Esposito (recommendations are above). Feels about the same. Hgb today is 7.5 Bone marrow scheduled for 04/25/22 Updated Visit, April 08, 2022: Hgb 8.1 today after transfusion 5 days ago. Due to See Dr. Esposito next 04/18/2022 Will cancel Vidaza for now. Continue aranesp Maintain transfusion support. Updated Visit, March 11, 2022: Unfortunately Lloyd is not maintaining any response to single agent Vidaza and remains transfusion dependent. I spoke with him and his his about seeking an opinion downtown with our Leukemia group as well as Hospice. It was a tearfu meeting as lissette is significantly younger than Lloyd. Updated Visit, February 11, 2022: Patient received 2 units of PRBC on 02/05/22 for hgb of 6.8. Saw cardiology today no changes. Denies any fevers, chill, nausea or vomiting. Overall, other than his normal fatigue, he feels well. Updated Visit, January 14, 2022: Lloyd in good spirit returns to continue treatments for MDS. I think we are making some progress as we haven't had to transfuse him in 4 weeks. WBC counts always start low at the beginning of each cycle but after D5, improve significantly. Hasn't been transfused for 4 weeks - anticipate need this week. Using BiPap and can sleep in bed now. Updated Visit, December 17, 2021: Lloyd is 81 years old and returns with his Lissette in follow-up. He feels much better having had several units transfused and now has a hemoglobin of 10.2. We revisited the discussion of pursuing treatment versus hospice and he is still indeterminant. We discussed pursuing a few more cycles and then reconsidering at that time. He does have some evidence of improvement with improving white blood cell count as well as platelet count improvement. He feels really good following his transfusion and wishes to proceed. Updated Visit, November 29, 2021: Lloyd returns unfortunately had Afib and heart failure with AMI and significant MV regurg. Fatigued. Will consider Hospice. Hold treatment for now and reconsider in 3-4 weeks. Also recovering from pneumonia. Reviewed outside records. Updated Visit, October 25, 2021: Sandip Broussard returns for scheduled follow up. He states that he is feeling slow . He has shortness of breath all the time. He denies any dizziness. He denies any abnormal blood loss. Updated Visit, October 01, 2021: Lloyd is 80 years old and returns with his Lissette for treatment with low-dose Vidaza. He appears to be having some response with improving platelet counts. His only complaints are that of increased abdominal gas. He is otherwise doing well. Continue Retacrit and treatment as recommended. He is safe to proceed. Sees ENT next week No more nose bleeds after stopping Eliquis. Updated Visit, September 17, 2021: Sandip Broussard returns for scheduled follow-up. Since his last visit there has been no significant medical changes. He denies bleeding and abnormal bruising. He denies fevers, chills, night sweats and signs/symptoms of infection. Overall, he feels fairly well. Updated Visit, September 03, 2021: BP improved. Labs stable and platelets have recovered. Was transfused last week and feels better. Neutropenia is disease related and we will continue with treatment. Continue retacrit as Ordered. Transfuse periodically. Updated Visit, August 24, 2021: Lloyd returns today prior to Retacrit during his 2 weeks following Vidaza. Has been having some pain at the base of his skull and is having some dizziness. BP is low - stop Norvasc and Hytrin, and hold Aldactone for now. It is their anniversary today - 49th! Updated Visit, August 06, 2021: Lloyd returns today for follow up and cycle 2 of vidaza. Feeling well. Ran out of his diuretic for a week and had some JANG. Was able to get his medications refilled and is feeling better now. No swelling, chest pain, dizziness, fever, chills or other concerning symptoms. Updated Visit, July 19, 2021: Sandip Broussard returns for follow-up. He received his first cycle of Vidaza 07/09/2021 through 07/13/2021. Overall, he tolerated treatment well without any side effects. He is doing well today and offers no new particular complaints. Updated Visit, July 09, 2021: Hasn't required transfusion since 06/2020. Still profoundly anemic despite adequate dosing of aranesp for CKD. Will proceed with low dose Vidaza. Reviewed plan and goals again. Updated Visit, May 31, 2021: EPO was increased to 80,000 units about 2 weeks ago. Feels the same. reports he still spends most of his day on the couch napping. Patient denies any bleeding. Does have diarrhea, which he has had for over 3 months. 2 loose stools a day. Afraid to go places because of the urgency a/w it. Patient denies bleeding. Does not want to see GI at this time. Has not taken anything for it. No new medications. Updated Visit, May 02, 2021: Lloyd returns with his Lissette and reports that he can't exert himself too much but can get out to the barn and doesn't get dizzy anymore. Still not responding as robustly to increased EPO, so will increase to 80k every 2 weeks. Updated Visit, March 07, 2021: Lloyd returns with his Lissette and was seen by Dr. Wade approximately 1 week ago from ENT. Patient was a little bit confused on instructions given and so I reviewed the recommendations and clarified for Lloyd exactly what his regimen should be. This includes stopping Eliquis as well as aspirin. He appears to be stable from a laboratory perspective but continues to have low platelets and generalized pancytopenia. We discussed again, the goal of his treatment and interventions to be palliative as he requested. He feels well today. Updated Visit, February 21, 2021: Nose bleed Friday- ER plugged it up but then went back on Friday hospitalized until this morning Still seeping blood. Operated on nose- surgery w/ Dr. Marshall Last fall in [place]. Has tranexamic acid at home. Requesting ENT referral at [facility]. He is dehydrated and not keeping up with fluids. Partition Setter is elevated exacerbating cause was likely letting his CPAP reservoir go dry. Ferritin is coming down. Updated Visit, January 10, 2021: Lloyd is here for follow up. After review of his chart, he has stage IV ckd and presented with pancytopenia, including significant anemia requiring transfusion due to GI bleeding and nose bleeds. 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 He has received IV iron in the past along with retacrit, which he is currently receiving every other week. Current goal is quality of life with the least amount visits. He did just have a nose bleed on Friday, and it didn't last long. He made his own plug and kept it in his nose for 24 hours and no additional bleeding. He is taking his eliquis one pill daily, but he held it the last two days due to the nose bleed. He is not on aspirin. Overall he feels well and offers no complaints of significant fatigue, shortness of breath, cough, fever, chills or signs of infections. Updated Visit, November 15, 2020: Sandip Broussard returns for follow-up. He remains on Retacrit 40,000 units every 2 weeks and is tolerating it well. Recently he has noticed pain in the back of his neck. He experienced this same pain when his hemoglobin was low in the past. He states that he takes Tylenol with improvement in the pain. He denies any signs of bleeding. He states that his bruising is better. He is still taking the Eliquis daily at the recommendation of his fashion model. Since stopping the aspirin he has not had any further nosebleeds. He denies fevers, chills, night sweats and signs/symptoms of infection. He has persistent exertional shortness of breath. Updated Visit, September 20, 2020: Lloyd is 79 and returns with his Lissette for discussion on his overall condition as well as his rec to have watchman for A-fib. However, our discussion reveals that he really doesn't want to do anything and that he also doesn't want to take full dose anticoagulation. I pressed him and verified that his goals were to focus on quality of life and get minimally involved in medical procedures. We will continue to monitor his counts and transfuse or give iron and retacrit as necessary, but minimize his follow ups. Updated Visit, August 23, 2020: Lloyd is 79 years old and returns with his Lissette today for multifactorial anemia. His GI bleed was finally found and addressed. They brought in a cake to share in their celebration of their anniversary and Nicki's birthday. He reports that he is no longer lightheaded. Still some fatigue. Now will need Aranesp replacement and iron x 1. He may need low dose dacogen in the future if he is unresponsive. Updated visit, July 26, 2020: Lloyd is 79 years old and returns with his Lissette today having had a capsule endoscopy which was positive for GI bleed. This was stopped and he is now recovering from his blood loss anemia. We will continue supporting him with IV iron as needed but for now we will hold off he will continue need B12 and folic acid. He still has underlying myelodysplasia and stage IV chronic kidney disease which is contributing to his anemia but Corine is not bleeding any longer. Updated Visit, July 03, 2020: Lloyd is 79 years old and returns with his Lissette again requiring additional transfusions because of significantly low hemoglobin. I reviewed his bone marrow biopsy with him which is consistent with myelodysplastic syndrome but he has ongoing melena that is highly suspicious for a GI bleed. To date his endoscopic work-up has been negative but he is due to have a capsule endoscopy that hopefully will reveal the cause of his cytopenias. He feels weak and is in a wheelchair today. Updated Visit, June 15, 2020: Conducted by telephone. Sandip Broussard is a 79 year old male seen for pancytopenia recently having had bone marrow biopsy that is most consistent with. 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 Hopefully his iron deficiency can be corrected and perhaps any evidence of GI bleeding can be attenuated. He sees gastroenterology next week. He may need transfusion support before the weekend even though he was just transfused his 17th unit 2 days ago. I reviewed his bone marrow biopsy results with him and his Lissette in some detail. His erythropoietin level is markedly elevated indicating that supplementation would not help and that his renal failure is not contributing to his anemia. Initial Visit, May 29, 2020: Sandip Broussard presents today Hematology and Oncology evaluation. He is a 79 year old male who is accompanied by his Lissette on urgent referral from Dr. Flash Pearl for pancytopenia, hemoglobin of 5 with both recent EGD and colonoscopy demonstrating no evidence of active bleeding but slight chronic gastritis. He also had several epistaxes as blood to the point of requiring transfusions causing lightheadedness and unsteadiness. Patient states he has had black stools since July 2019. So far extensive work-up has been unrevealing. He has had recent hospitalization and was released on 05/26/2020. Full work-up at that time revealed an adequate erythropoietin response despite elevated creatinine and stage III chronic kidney disease. However his white blood cell count remains suppressed as does his platelet count of less than 100,000. Indeed, his epistaxis may be the cause of his melanotic stools but warrants another look and additionally he will need a bone marrow biopsy. His coags are normal. His red blood cell indices only indicate hypochromasia and macrocytosis. Patient had a bleeding scan that was negative as well. REVIEW OF SYSTEMS Per HPI and otherwise negative by full review of organ systems. ECOG PERFORMANCE STATUS: 2 PHYSICAL EXAMINATION: Vitals: BP 103/58 Pulse 65 Temp (Src) 97.8 (Temporal) Resp 16 Ht 5' 5.394 (1.66m) Wt 233 lb (105.7kg) SpO2 95[oxygen on 3L]% BMI 38.31 kg/(m^2). Body surface area is 2.21 meters squared. General: Alert and oriented, no distress, pleasant and cooperative. In wheelchair Heart: Regular, normal S1 and S2, no murmurs, rubs, or gallops Lungs: Nonlabored, on O2 Abdomen: Benign Extremities: Feet/ankles without edema, posterior tibial pulses full and symmetrical ALLERGIES: ALLERGIES Allergen Reactions Bee Stings [Other] large hives, swelling at site Coreg [Carvedilol] Hives MEDICATIONS: ondansetron (ZOFRAN) 8 mg tablet Take 1 tablet by mouth every 8 hours as needed for nausea/vomiting. prochlorperazine (COMPAZINE) 10 mg tablet Take 1 tablet by mouth every 6 hours as needed. omeprazole (PRILOSEC) 40 mg capsule Take 40 mg by mouth once daily. bumetanide (BUMEX) 1 mg tablet Take 1 mg by mouth every morning. potassium chloride SR (MICRO-K) 10 mEq CR capsule Take 10 mEq by mouth once daily. FARXIGA 10 mg tablet Take 10 mg by mouth daily with breakfast. metoprolol succinate ER (TOPROL XL) 25 mg 24 hr tablet Take 25 mg by mouth once daily. spironolactone (ALDACTONE) 25 mg tablet Take 25 mg by mouth once daily. aspirin 81 mg chewable tablet CHEW 1 TABLET BY MOUTH EVERY DAY sucralfate (CARAFATE) 1 gram tablet Take 1 g by mouth four times daily. [facility] NASAL OINTMENT Apply to affected area twice daily. atorvastatin (LIPITOR) 20 mg tablet Take 1 tablet by mouth daily at bedtime. colchicine 0.6 mg tablet Take 0.6 mg by mouth as needed. As needed 1-2 times/week lisinopril (ZESTRIL, PRINIVIL) 10 mg tablet Take 1 tablet by mouth once daily. Please resume this medication after PCP follow up ONETOUCH DELICA PLUS LANCET 33 gauge glipiZIDE (GLUCOTROL) 5 mg tablet Take 5 mg by mouth once daily. ONETOUCH ULTRA BLUE TEST STRIP test strip cholecalciferol (VITAMIN D3) 1,000 unit tab tablet 1,000 Units once daily. Only taking 500 units LABORATORY VALUES: WBC (k/uL) Date Value 07/23/2022 1.99 (L) RBC (m/uL) Date Value 07/23/2022 2.38 (L) Hemoglobin (g/dL) Date Value 07/23/2022 7.2 (L) Hematocrit (%) Date Value 07/23/2022 23.4 (L) MCV (fL) Date Value 07/23/2022 98.3 MCH (pg) Date Value 07/23/2022 30.3 MCHC (g/dL) Date Value 07/23/2022 30.8 RDW-CV (%) Date Value 07/23/2022 16.6 (H) Platelet Count (k/uL) Date Value 07/23/2022 83 (L) MPV (fL) Date Value 06/24/2022 14.0 (H) Glucose (mg/dL) Date Value 07/23/2022 143 (H) BUN (mg/dL) Date Value 07/23/2022 30 (H) Creatinine (mg/dL) Date Value 07/23/2022 1.68 (H) Sodium (mmol/L) Date Value 07/23/2022 141 Potassium (mmol/L) Date Value 07/23/2022 4.3 Chloride (mmol/L) Date Value 07/23/2022 100 CO2 (mmol/L) Date Value 07/23/2022 32 (H) Protein, Total (g/dL) Date Value 07/23/2022 6.1 (L) Albumin (g/dL) Date Value 07/23/2022 3.8 (L) Calcium, Total (mg/dL) Date Value 07/23/2022 8.9 Alkaline Phosphatase (U/L) Date Value 07/23/2022 117 (H) Bilirubin, Total (mg/dL) Date Value 07/23/2022 1.1 AST (U/L) Date Value 07/23/2022 16 ALT (U/L) Date Value 07/23/2022 36 Cholesterol, Total (mg/dL) Date Value 06/27/2005 153 Triglyceride (mg/dL) Date Value 06/27/2005 144 DIAGNOSIS: (D46.9) MDS (myelodysplastic syndrome) (HCC) (primary encounter diagnosis) (E83.111) 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 transfusions (N18.4, D63.1) Anemia of chronic renal failure, stage 4 (severe) (HCC) (D46.9) Myelodysplastic syndrome (HCC) PAST MEDICAL HISTORY Diagnosis Date Anemia Anemia of chronic renal failure, stage 4 (severe) (HCC) 08/23/2020 Atrial fibrillation (HCC) Chronic kidney disease CRF (chronic renal failure), stage 4 (severe) (HCC) 08/23/2020 Diabetes mellitus (HCC) GI bleed Hypertension 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 loss 06/15/2020 Leukopenia Sleep apnea Thrombocytopenia (HCC) PAST SURGICAL HISTORY Procedure Laterality Date COLONOSCOPY Social History Tobacco Use Smoking status: Former Types: Pipe Quit date: 1994 Years since quittin.0 Passive exposure: Past Smokeless tobacco: Never Vaping Use Vaping Use: Never used Substance Use Topics Alcohol use: Not Currently Drug use: Not Currently History reviewed. No pertinent family history. I spent a total of 40 minutes on the date of the service which included preparing to see the patient, [id number] patient care, completing clinical documentation, obtaining and/or reviewing separately obtained history, performing a medically appropriate examination, counseling and educating the patient/family/caregiver, ordering medications, tests, or procedures, communicating with other HCPs (not separately reported), independently interpreting results (not separately reported), and communicating results to the patient/family/caregiver. Asher Hummel MD, CPE Hematology and Oncology Services Provided at: [place], [place] CC: Dr. Flash Gomez (Cardiology [facility]) Dr. Oumou Esposito documented in this encounter [facility] 07-18-2022 Miscellaneous Notes Pt's spouse notified and verbalizes understanding. Angle Kamara RN That is fine to do if he needs to. Pulse ox sat of 94-95% on 2L if fine. Thanks, Wilfred Martinez APRN.RAMONA Pt's spouse reports that the infusion nurse increased the pt's oxygen to 3 LPM during today's transfusion after pt c/o feeling short of breath. Notes the pt's pulse ox is 94-95% on 2 LPM. Any objections to him increasing his flow rate to 3 LPM when needed? Angle Kamara RN documented in this encounter [facility] 07-16-2022 Note [facility] 07-16-2022 Nurse Note Additional intake questions: Has the patient had fever, nausea, vomiting, diarrhea, constipation, fatigue for > 1 week? Yes, diarrhea ( 1 times in last 24 hours), fatigue, SOB, and Provider Notified Does the patient have a decreased appetite? No Does patient want to see a Raker Buffing Wheel? No (yes to any of above refer patient to schedulers for dietitian appointment) ) Does patient have any new or increased numbness or tingling of extremities? No Is patient interested in fertility information? No Does patient need any prescription refills? No Does patient have an advanced directive in place? No, Patient referred to [facility] Electronically Signed By: Matt Christianson LPN documented in this encounter [facility] 07-16-2022 History of Present illness Narrative [place] [id number] [place] CLINIC NOTE NAME: SANDIP BROUSSARD CLINIC #: [id number] DATE: 07/16/2022 AGE: 81 PHYSICIAN: Elysia Esposito M.D. The patient is an 81-year-old gentleman with myelodysplastic syndrome who presents today for further followup. He is followed by Dr. Hummel in the region. HISTORY OF PRESENT ILLNESS: Please see my note dictated on May 21, 2022. INTERVAL HISTORY: Since the patient last saw us, he has continued to decline. He is requiring transfusions on an almost weekly basis and despite getting blood transfusions, notes he is feeling lousy and short of breath with less benefit than what he had previously. He notes he feels badly if he tries to do anything. His labs from earlier this week are in epic and he is planned to get a blood transfusion this coming . He has been getting decitabine twice a week and Retacrit weekly. He has noted some occasional loose stool after getting decitabine. No chest pain. A little nausea. He has been on this regimen for about 2 months now. He does note some discomfort in his right hip area that makes it difficult to sleep on this side. PHYSICAL EXAMINATION: Vital signs are reviewed and are in Epic. Limited physical exam. He has some minimal erythema at the site of his underwear line. There is no active evidence of infection. This is not where his previous bone marrow was. LABORATORY VALUES: Reviewed and are in epic. IMPRESSION AND PLAN: 1. Myelodysplastic syndrome. Unfortunately the patient is not doing well from a hematologic or performance status standpoint. He and his had questions today about goals of care and hospice and we discussed this. They are realistic, but would like to continue treatment if possible. 2. Although luspatercept is FDA approved for ringed sideroblastic anemia, recent data presented at the national annual meeting [employer] 2021 has demonstrated a benefit to luspatercept in patients who are non ring sideroblastic and the response rates were in the 33% range. Given this, and given the very limited side effects of this treatment, I think that this would be reasonable to offer him and may improve his quality of life. We will work on getting insurance approval. The patient unfortunately is not a candidate for clinical trials, given his organ function. 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 I have discussed the above with Dr. Hummel. If he were to initiate treatment with luspatercept, we would discontinue decitabine and Retacrit. 3. I have recommended topical measures with Aspercreme and changing to longer short like underwear to see if this helps with his discomfort. 4. He will otherwise have a phone visit with us in 1 month and continue follow up locally in the interim Elysia Esposito M.D. AA:[id number] /[id number] documented in this encounter [facility] 07-15-2022 Miscellaneous Notes 1 unit packed RBC's at [facility] on 07-18-22 10am. Lab on Friday07-16-22 11am. Orders and cbc were faxed to [facility]. documented in this encounter [facility] 07-15-2022 Note [facility] 07-15-2022 Instructions Asher Hummel MD - 07/15/2022 2:56 PM EST Continue low dose decitabine weekly x 2 days (Friday and Friday normally) This week plan second dose on with labs Retacrit today and weekly for Hgb < 12 RTC with 1 week on 07/23/2022 Labs same day. Transfuse on at [facility] documented in this encounter [facility] 07-15-2022 History of Present illness Narrative Images from the original note were not included. NAME: Sandip Broussard [facility] NO.: [id number] DATE OF SERVICE: July 15, 2022 ([facility] Some elements in this clinic note that are critical to medical decision making have been carefully reviewed and included from a prior clinic note dated: July 08, 2022 (Estephanie) Referring Provider: Dr. Flash Pearl Additional Clinicians involved in Sandip Broussard's care: Dr. José Luis Velasquez, Dr. Oumou Wade, Dr. Karen Esposito CC: MDS ASSESSMENT: 81 year old year old man with MDS, stage 4 chronic kidney disease and iron deficiency anemia d/t GI blood loss (seen on capsule endoscopy) and epistaxis. Was receiving high dose EPO every 2 weeks with periodic iron infusions. With persisting cytopenia we started him on Vidaza low dose to see if we could positively impact his pancytopenia and reduce his fatigue as well as his Epo usage. Unfortunately he suffered an acute [place] 11/23/2021 and also developed another GI bleed. He was transfused, and medically managed after catheterization. 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 He was requiring transfusion of PRBCs every 3-4 weeks and there was question of if he was responding to Vidaza. He was seen by Dr. 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 Unfortunately treatment is getting overwhelming for him and does not appear to be working. Will look for additional direction from Dr. Esposito after she sees him tomorrow. NGS Heme: TET2 p.?, [id number], c.4182+1G>A VAF: 44.5% TET2 p.F0261B, [id number], c.5618T>C VAF: 40% ZRSR2 p.R30Vfs*8, [id number], c.88delC VAF: 91.1% And the following variant(s) of uncertain significance: BCORL1 p.R72W [id number]: c.214C>T VAF: 100% PLAN: Continue low dose decitabine weekly x 2 days (Friday and Friday normally) This week plan second dose on with labs Retacrit today and weekly for Hgb < 12 RTC with 1 week on 07/23/2022 Labs same day. Transfuse on at [facility] x 1 unit TREATMENT TO DATE: 4. 05/20/2022 - Low dose Decitabine weekly. 3. 07/09/2021 - 04/08/2022: Vidaza D1-5 q 28. 2. Retacrit 80,000 units every week. 1. Intermittent IV Iron. HPI: Updated Visit, July 15, 2022: Lloyd is back with Nicki. He has had no real change clinically. Has to split his treatment this week. Will transfuse due to logistics for his . Updated Visit, July 08, 2022: Lloyd returns for follow up. No new symptoms. His shortness of breath remains the same. Did not have PRBCs last week, however today his hgb is 7.4. Denies any fevers, chills, nausea, vomiting cough or shortness of breath. Has appointment with Dr. Esposito next week. Updated Visit, July 01, 2022: Stable No significant new symptoms - dyspnea is unchanged. Was transfused last week with 2 units with Hgb 8.1 - today is 8.3. Will hold off for [address] Esposito on 07/16/2022 Updated Visit, June 24, 2022: Sandip Broussard returns for follow-up and treatment. He remains on weekly decitabine on Mondays and Tuesdays. He is tolerating treatment well. He denies fevers, chills, night sweats and signs/symptoms of infection. He denies any abnormal bleeding. He does bruise easily. He is having fatigue. He notices himself sleeping more. He has chronic unchanged shortness of breath. Overall, he is doing well. Updated Visit, June 17, 2022: Lloyd returns with his lissette. His left deltoid improving after his decitabine shot 2 weeks ago. Skin had pulled off with it. Still reddened. Hgb 8.4 today Last transfusion was on 06/12/2022. Overall feels pretty good. Exam of left posterior upper arm is with slight erythema and induration with superficial and shallow ulcer of skin 0.5 cm diameter. Area of induration is 1.5 cm diameter. Updated Visit, June 10, 2022: On antibiotic, cefuroxime 500mg BID for ear infection per dr pearl since 05/29/2022, Rafael hartmann. He stopped it early, but his ear started bothering him again so he restarted it. Denies any fevers, chills. Does have an open area on his left deltoid following his dacogen injection from 06/04/22. No drainage. Still with dyspnea and dizziness. Updated Visit, June 03, 2022: Lloyd is in a wheelchair today and reports getting light headed and dyspneic with standing and light activity. Hgb 6.5 today and will need transfusions this week with recheck on Friday. Continue current plan for low dose Decitabine. Will watch platelet counts and monitor neutropenia. Updated Visit, May 20, 2022: Lloyd returns with his Nicki. He was transfused 2 weeks ago. Presents to start dacogen today. Feels weak today and will need transfusion support. Education and consent done and obtained today. Updated Visit, May 06, 2022: Reviewed bone marrow results and labs with them. Will discuss with my colleague Dr. Esposito with respect to starting Dacogen. 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 Will need retacrit today and weekly as well as PRBC transfusion Updated Visit, April 29, 2022: Lloyd returns and has ongoing cytopenias. Awaiting bone marrow biopsy results. Will continue retacrit weekly. No need for transfusion today. Updated Visit, April 22, 2022: Patient saw Dr. Esposito (recommendations are above). Feels about the same. Hgb today is 7.5 Bone marrow scheduled for 04/25/22 Updated Visit, April 08, 2022: Hgb 8.1 today after transfusion 5 days ago. Due to See Dr. Esposito next 04/18/2022 Will cancel Vidaza for now. Continue aranesp Maintain transfusion support. Updated Visit, March 11, 2022: Unfortunately Lloyd is not maintaining any response to single agent Vidaza and remains transfusion dependent. I spoke with him and his his about seeking an opinion downtown with our Leukemia group as well as Hospice. It was a tearfu meeting as lissette is significantly younger than Lloyd. Updated Visit, February 11, 2022: Patient received 2 units of PRBC on 02/05/22 for hgb of 6.8. Saw cardiology today no changes. Denies any fevers, chill, nausea or vomiting. Overall, other than his normal fatigue, he feels well. Updated Visit, January 14, 2022: Lloyd in good spirit returns to continue treatments for MDS. I think we are making some progress as we haven't had to transfuse him in 4 weeks. WBC counts always start low at the beginning of each cycle but after D5, improve significantly. Hasn't been transfused for 4 weeks - anticipate need this week. Using BiPap and can sleep in bed now. Updated Visit, December 17, 2021: Lloyd is 81 years old and returns with his Lissette in follow-up. He feels much better having had several units transfused and now has a hemoglobin of 10.2. We revisited the discussion of pursuing treatment versus hospice and he is still indeterminant. We discussed pursuing a few more cycles and then reconsidering at that time. He does have some evidence of improvement with improving white blood cell count as well as platelet count improvement. He feels really good following his transfusion and wishes to proceed. Updated Visit, November 29, 2021: Lloyd returns unfortunately had Afib and heart failure with AMI and significant MV regurg. Fatigued. Will consider Hospice. Hold treatment for now and reconsider in 3-4 weeks. Also recovering from pneumonia. Reviewed outside records. Updated Visit, October 25, 2021: Sandip Broussard returns for scheduled follow up. He states that he is feeling slow . He has shortness of breath all the time. He denies any dizziness. He denies any abnormal blood loss. Updated Visit, October 01, 2021: Lloyd is 80 years old and returns with his Lissette for treatment with low-dose Vidaza. He appears to be having some response with improving platelet counts. His only complaints are that of increased abdominal gas. He is otherwise doing well. Continue Retacrit and treatment as recommended. He is safe to proceed. Sees ENT next week No more nose bleeds after stopping Eliquis. Updated Visit, September 17, 2021: Sandip Broussard returns for scheduled follow-up. Since his last visit there has been no significant medical changes. He denies bleeding and abnormal bruising. He denies fevers, chills, night sweats and signs/symptoms of infection. Overall, he feels fairly well. Updated Visit, September 03, 2021: BP improved. Labs stable and platelets have recovered. Was transfused last week and feels better. Neutropenia is disease related and we will continue with treatment. Continue retacrit as Ordered. Transfuse periodically. Updated Visit, August 24, 2021: Lloyd returns today prior to Retacrit during his 2 weeks following Vidaza. Has been having some pain at the base of his skull and is having some dizziness. BP is low - stop Norvasc and Hytrin, and hold Aldactone for now. It is their anniversary today - 49th! Updated Visit, August 06, 2021: Lloyd returns today for follow up and cycle 2 of vidaza. Feeling well. Ran out of his diuretic for a week and had some JANG. Was able to get his medications refilled and is feeling better now. No swelling, chest pain, dizziness, fever, chills or other concerning symptoms. Updated Visit, July 19, 2021: Sandip Broussard returns for follow-up. He received his first cycle of Vidaza 07/09/2021 through 07/13/2021. Overall, he tolerated treatment well without any side effects. He is doing well today and offers no new particular complaints. Updated Visit, July 09, 2021: Hasn't required transfusion since 06/2020. Still profoundly anemic despite adequate dosing of aranesp for CKD. Will proceed with low dose Vidaza. Reviewed plan and goals again. Updated Visit, May 31, 2021: EPO was increased to 80,000 units about 2 weeks ago. Feels the same. reports he still spends most of his day on the couch napping. Patient denies any bleeding. Does have diarrhea, which he has had for over 3 months. 2 loose stools a day. Afraid to go places because of the urgency a/w it. Patient denies bleeding. Does not want to see GI at this time. Has not taken anything for it. No new medications. Updated Visit, May 02, 2021: Lloyd returns with his Lissette and reports that he can't exert himself too much but can get out to the barn and doesn't get dizzy anymore. Still not responding as robustly to increased EPO, so will increase to 80k every 2 weeks. Updated Visit, March 07, 2021: Lloyd returns with his Lissette and was seen by Dr. Wade approximately 1 week ago from ENT. Patient was a little bit confused on instructions given and so I reviewed the recommendations and clarified for Lloyd exactly what his regimen should be. This includes stopping Eliquis as well as aspirin. He appears to be stable from a laboratory perspective but continues to have low platelets and generalized pancytopenia. We discussed again, the goal of his treatment and interventions to be palliative as he requested. He feels well today. Updated Visit, February 21, 2021: Nose bleed Friday- ER plugged it up but then went back on Friday hospitalized until this morning Still seeping blood. Operated on nose- surgery w/ Dr. Marshall Last fall in [place]. Has tranexamic acid at home. Requesting ENT referral at [facility]. He is dehydrated and not keeping up with fluids. Partition Setter is elevated exacerbating cause was likely letting his CPAP reservoir go dry. Ferritin is coming down. Updated Visit, January 10, 2021: Lloyd is here for follow up. After review of his chart, he has stage IV ckd and presented with pancytopenia, including significant anemia requiring transfusion due to GI bleeding and nose bleeds. 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 He has received IV iron in the past along with retacrit, which he is currently receiving every other week. Current goal is quality of life with the least amount visits. He did just have a nose bleed on Friday, and it didn't last long. He made his own plug and kept it in his nose for 24 hours and no additional bleeding. He is taking his eliquis one pill daily, but he held it the last two days due to the nose bleed. He is not on aspirin. Overall he feels well and offers no complaints of significant fatigue, shortness of breath, cough, fever, chills or signs of infections. Updated Visit, November 15, 2020: Sandip Broussard returns for follow-up. He remains on Retacrit 40,000 units every 2 weeks and is tolerating it well. Recently he has noticed pain in the back of his neck. He experienced this same pain when his hemoglobin was low in the past. He states that he takes Tylenol with improvement in the pain. He denies any signs of bleeding. He states that his bruising is better. He is still taking the Eliquis daily at the recommendation of his fashion model. Since stopping the aspirin he has not had any further nosebleeds. He denies fevers, chills, night sweats and signs/symptoms of infection. He has persistent exertional shortness of breath. Updated Visit, September 20, 2020: Lloyd is 79 and returns with his Lissette for discussion on his overall condition as well as his rec to have watchman for A-fib. However, our discussion reveals that he really doesn't want to do anything and that he also doesn't want to take full dose anticoagulation. I pressed him and verified that his goals were to focus on quality of life and get minimally involved in medical procedures. We will continue to monitor his counts and transfuse or give iron and retacrit as necessary, but minimize his follow ups. Updated Visit, August 23, 2020: Lloyd is 79 years old and returns with his Lissette today for multifactorial anemia. His GI bleed was finally found and addressed. They brought in a cake to share in their celebration of their anniversary and Nicki's birthday. He reports that he is no longer lightheaded. Still some fatigue. Now will need Aranesp replacement and iron x 1. He may need low dose dacogen in the future if he is unresponsive. Updated visit, July 26, 2020: Lloyd is 79 years old and returns with his Lissette today having had a capsule endoscopy which was positive for GI bleed. This was stopped and he is now recovering from his blood loss anemia. We will continue supporting him with IV iron as needed but for now we will hold off he will continue need B12 and folic acid. He still has underlying myelodysplasia and stage IV chronic kidney disease which is contributing to his anemia but Corine is not bleeding any longer. Updated Visit, July 03, 2020: Lloyd is 79 years old and returns with his Lissette again requiring additional transfusions because of significantly low hemoglobin. I reviewed his bone marrow biopsy with him which is consistent with myelodysplastic syndrome but he has ongoing melena that is highly suspicious for a GI bleed. To date his endoscopic work-up has been negative but he is due to have a capsule endoscopy that hopefully will reveal the cause of his cytopenias. He feels weak and is in a wheelchair today. Updated Visit, June 15, 2020: Conducted by telephone. Sandip Broussard is a 79 year old male seen for pancytopenia recently having had bone marrow biopsy that is most consistent with. 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 Hopefully his iron deficiency can be corrected and perhaps any evidence of GI bleeding can be attenuated. He sees gastroenterology next week. He may need transfusion support before the weekend even though he was just transfused his 17th unit 2 days ago. I reviewed his bone marrow biopsy results with him and his Lissette in some detail. His erythropoietin level is markedly elevated indicating that supplementation would not help and that his renal failure is not contributing to his anemia. Initial Visit, May 29, 2020: Sandip Broussard presents today Hematology and Oncology evaluation. He is a 79 year old male who is accompanied by his Lissette on urgent referral from Dr. Flash Pearl for pancytopenia, hemoglobin of 5 with both recent EGD and colonoscopy demonstrating no evidence of active bleeding but slight chronic gastritis. He also had several epistaxes as blood to the point of requiring transfusions causing lightheadedness and unsteadiness. Patient states he has had black stools since July 2019. So far extensive work-up has been unrevealing. He has had recent hospitalization and was released on 05/26/2020. Full work-up at that time revealed an adequate erythropoietin response despite elevated creatinine and stage III chronic kidney disease. However his white blood cell count remains suppressed as does his platelet count of less than 100,000. Indeed, his epistaxis may be the cause of his melanotic stools but warrants another look and additionally he will need a bone marrow biopsy. His coags are normal. His red blood cell indices only indicate hypochromasia and macrocytosis. Patient had a bleeding scan that was negative as well. REVIEW OF SYSTEMS Per HPI and otherwise negative by full review of organ systems. ECOG PERFORMANCE STATUS: 2 PHYSICAL EXAMINATION: Vitals: BP 103/43 Pulse 56 Temp (Src) 97.6 (Temporal) Resp 16 Ht 5' 5.394 (1.66m) Wt 234 lb 3.2 oz (106.2kg) SpO2 93[O2 @ 2L]% BMI 38.50 kg/(m^2). Body surface area is 2.21 meters squared. General: Alert and oriented, no distress, pleasant and cooperative. In wheelchair Heart: Regular, normal S1 and S2, no murmurs, rubs, or gallops Lungs: Nonlabored, on O2 Abdomen: Benign Extremities: Feet/ankles without edema, posterior tibial pulses full and symmetrical ALLERGIES: ALLERGIES Allergen Reactions Bee Stings [Other] large hives, swelling at site Coreg [Carvedilol] Hives MEDICATIONS: ondansetron (ZOFRAN) 8 mg tablet Take 1 tablet by mouth every 8 hours as needed for nausea/vomiting. prochlorperazine (COMPAZINE) 10 mg tablet Take 1 tablet by mouth every 6 hours as needed. omeprazole (PRILOSEC) 40 mg capsule Take 40 mg by mouth once daily. bumetanide (BUMEX) 1 mg tablet Take 1 mg by mouth every morning. potassium chloride SR (MICRO-K) 10 mEq CR capsule Take 10 mEq by mouth once daily. FARXIGA 10 mg tablet Take 10 mg by mouth daily with breakfast. metoprolol succinate ER (TOPROL XL) 25 mg 24 hr tablet Take 25 mg by mouth once daily. spironolactone (ALDACTONE) 25 mg tablet Take 25 mg by mouth once daily. aspirin 81 mg chewable tablet CHEW 1 TABLET BY MOUTH EVERY DAY sucralfate (CARAFATE) 1 gram tablet Take 1 g by mouth four times daily. [facility] NASAL OINTMENT Apply to affected area twice daily. atorvastatin (LIPITOR) 20 mg tablet Take 1 tablet by mouth daily at bedtime. colchicine 0.6 mg tablet Take 0.6 mg by mouth as needed. As needed 1-2 times/week lisinopril (ZESTRIL, PRINIVIL) 10 mg tablet Take 1 tablet by mouth once daily. Please resume this medication after PCP follow up ONETOUCH DELICA PLUS LANCET 33 gauge glipiZIDE (GLUCOTROL) 5 mg tablet Take 5 mg by mouth once daily. ONETOUCH ULTRA BLUE TEST STRIP test strip cholecalciferol (VITAMIN D3) 1,000 unit tab tablet 1,000 Units once daily. Only taking 500 units LABORATORY VALUES: WBC (k/uL) Date Value 07/15/2022 1.65 (L) RBC (m/uL) Date Value 07/15/2022 2.56 (L) Hemoglobin (g/dL) Date Value 07/15/2022 7.9 (L) Hematocrit (%) Date Value 07/15/2022 25.1 (L) MCV (fL) Date Value 07/15/2022 98.0 MCH (pg) Date Value 07/15/2022 30.9 MCHC (g/dL) Date Value 07/15/2022 31.5 RDW-CV (%) Date Value 07/15/2022 16.9 (H) Platelet Count (k/uL) Date Value 07/08/2022 65 (L) MPV (fL) Date Value 06/24/2022 14.0 (H) Glucose (mg/dL) Date Value 07/15/2022 147 (H) BUN (mg/dL) Date Value 07/15/2022 24 Creatinine (mg/dL) Date Value 07/15/2022 1.56 (H) Sodium (mmol/L) Date Value 07/15/2022 146 (H) Potassium (mmol/L) Date Value 07/15/2022 4.1 Chloride (mmol/L) Date Value 07/15/2022 104 CO2 (mmol/L) Date Value 07/15/2022 32 (H) Protein, Total (g/dL) Date Value 07/15/2022 6.3 Albumin (g/dL) Date Value 07/15/2022 3.8 (L) Calcium, Total (mg/dL) Date Value 07/15/2022 9.0 Alkaline Phosphatase (U/L) Date Value 07/15/2022 114 (H) Bilirubin, Total (mg/dL) Date Value 07/15/2022 0.9 AST (U/L) Date Value 07/15/2022 18 ALT (U/L) Date Value 07/15/2022 39 Cholesterol, Total (mg/dL) Date Value 06/27/2005 153 Triglyceride (mg/dL) Date Value 06/27/2005 144 DIAGNOSIS: (D46.9) Myelodysplastic syndrome (HCC) (primary encounter diagnosis) Plan: DISCONTINUED: decitabine 21.1 mg subcutaneous injection (DACOGEN), DISCONTINUED: NaCl 0.9% iv infusion, DISCONTINUED: diphenhydrAMINE 50 mg injection (BENADRYL), DISCONTINUED: hydrocortisone sodium succinate (PF) 100 mg injection (Solu-CORTEF), DISCONTINUED: EPINEPHrine 1 mg/mL (1 mL) 0.3 mg injection (E83.111) 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 transfusions (N18.4, D63.1) Anemia of chronic renal failure, stage 4 (severe) (HCC) PAST MEDICAL HISTORY Diagnosis Date Anemia Anemia of chronic renal failure, stage 4 (severe) (HCC) 08/23/2020 Atrial fibrillation (HCC) Chronic kidney disease CRF (chronic renal failure), stage 4 (severe) (HCC) 08/23/2020 Diabetes mellitus (HCC) GI bleed Hypertension 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 loss 06/15/2020 Leukopenia Sleep apnea Thrombocytopenia (HCC) PAST SURGICAL HISTORY Procedure Laterality Date COLONOSCOPY Social History Tobacco Use Smoking status: Former Types: Pipe Quit date: 1994 Years since quittin.9 Passive exposure: Past Smokeless tobacco: Never Vaping Use Vaping Use: Never used Substance Use Topics Alcohol use: Not Currently Drug use: Not Currently No family history on file. I spent a total of 40 minutes on the date of the service which included preparing to see the patient, [id number] patient care, completing clinical documentation, obtaining and/or reviewing separately obtained history, performing a medically appropriate examination, counseling and educating the patient/family/caregiver, ordering medications, tests, or procedures, communicating with other HCPs (not separately reported), independently interpreting results (not separately reported), and communicating results to the patient/family/caregiver. Asher Hummel MD, CPE Hematology and Oncology Services Provided at: [place], [place] CC: Dr. Flash Gomez (Cardiology [facility]) Dr. Oumou Esposito documented in this encounter [facility] 07-11-2022 Miscellaneous Notes Yes. 2 units ordered per Radha on 07/08/22. Angle Kamara RN ----- Message from Asher Hummel MD sent at 07/09/2022 8:04 PM EST ----- Did we transfuse? documented in this encounter [facility] 07-08-2022 Note [facility] 07-08-2022 Miscellaneous Notes Haydee called stating she will call patient's to get him set up. Ada Perez Left message w/ [place] scheduling to get patient set up for transfusion. Ada Perez documented in this encounter [facility] 07-08-2022 History of Present illness Narrative Images from the original note were not included. NAME: Sandip Broussard CLINIC NO.: [id number] DATE OF SERVICE: July 08, 2022 (Estephanie) (Elements copied from Dr. Hummel's note dated July 01, 2022, have been reviewed and updated where appropriate, and all reflect current assessment and medical decision making during today's encounter, July 08, 2022) Referring Provider: Dr. Flahs Pearl Additional Clinicians involved in Sandip Broussard's care: Dr. José Luis Velasquez, Dr. Oumou Wade CC: MDS ASSESSMENT: 81 year old year old man with MDS, stage 4 chronic kidney disease and iron deficiency anemia d/t GI blood loss (seen on capsule endoscopy) and epistaxis. Was receiving high dose EPO every 2 weeks with periodic iron infusions. With persisting cytopenia we started him on Vidaza low dose to see if we could positively impact his pancytopenia and reduce his fatigue as well as his Epo usage. Unfortunately he suffered an acute [place] 11/23/2021 and also developed another GI bleed. He was transfused, and medically managed after catheterization. 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 He was requiring transfusion of PRBCs every 3-4 weeks and there was question of if he was responding to Vidaza. He was seen by Dr. 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 NGS Heme: TET2 p.?, [id number], c.4182+1G>A VAF: 44.5% TET2 p.[id number], [id number], c.5618T>C VAF: 40% ZRSR2 p.R30Vfs*8, [id number], c.88delC VAF: 91.1% And the following variant(s) of uncertain significance: BCORL1 p.R72W [id number]: c.214C>T VAF: 100% Patient continues to require transfusions of PRBCs every 1-2 weeks to keep hgb >8.0. Today he is 7.4. Will proceed with low dose decitabine x 2days every week as well as retacrit. He has a follow up 07/16/[address] Esposito. We will see him in 1 week. TREATMENT TO DATE: 4. 05/20/2022 - Low dose Decitabine weekly. 3. 07/09/2021 - 04/08/2022: Vidaza D1-5 q 28. 2. Retacrit 80,000 units every week. 1. Intermittent IV Iron. HPI: Updated Visit, July 08, 2022: Lloyd returns for follow up. No new symptoms. His shortness of breath remains the same. Did not have PRBCs last week, however today his hgb is 7.4. Denies any fevers, chills, nausea, vomiting cough or shortness of breath. Has appointment with Dr. Esposito next week. Updated Visit, July 01, 2022: Stable No significant new symptoms - dyspnea is unchanged. Was transfused last week with 2 units with Hgb 8.1 - today is 8.3. Will hold off for [address] Esposito on 07/16/2022 Updated Visit, June 24, 2022: Sandip Broussard returns for follow-up and treatment. He remains on weekly decitabine on Mondays and Tuesdays. He is tolerating treatment well. He denies fevers, chills, night sweats and signs/symptoms of infection. He denies any abnormal bleeding. He does bruise easily. He is having fatigue. He notices himself sleeping more. He has chronic unchanged shortness of breath. Overall, he is doing well. Updated Visit, June 17, 2022: Lloyd returns with his lissette. His left deltoid improving after his decitabine shot 2 weeks ago. Skin had pulled off with it. Still reddened. Hgb 8.4 today Last transfusion was on 06/12/2022. Overall feels pretty good. Exam of left posterior upper arm is with slight erythema and induration with superficial and shallow ulcer of skin 0.5 cm diameter. Area of induration is 1.5 cm diameter. Updated Visit, June 10, 2022: On antibiotic, cefuroxime 500mg BID for ear infection per dr pearl since 05/29/2022, Rafael hawleykeagan. He stopped it early, but his ear started bothering him again so he restarted it. Denies any fevers, chills. Does have an open area on his left deltoid following his dacogen injection from 06/04/22. No drainage. Still with dyspnea and dizziness. Updated Visit, June 03, 2022: Lloyd is in a wheelchair today and reports getting light headed and dyspneic with standing and light activity. Hgb 6.5 today and will need transfusions this week with recheck on Friday. Continue current plan for low dose Decitabine. Will watch platelet counts and monitor neutropenia. Updated Visit, May 20, 2022: Lloyd returns with his Nicki. He was transfused 2 weeks ago. Presents to start dacogen today. Feels weak today and will need transfusion support. Education and consent done and obtained today. Updated Visit, May 06, 2022: Reviewed bone marrow results and labs with them. Will discuss with my colleague Dr. Esposito with respect to starting Dacogen. 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 Will need retacrit today and weekly as well as PRBC transfusion Updated Visit, April 29, 2022: Lloyd returns and has ongoing cytopenias. Awaiting bone marrow biopsy results. Will continue retacrit weekly. No need for transfusion today. Updated Visit, April 22, 2022: Patient saw Dr. Esposito (recommendations are above). Feels about the same. Hgb today is 7.5 Bone marrow scheduled for 04/25/22 Updated Visit, April 08, 2022: Hgb 8.1 today after transfusion 5 days ago. Due to See Dr. Esposito next 04/18/2022 Will cancel Vidaza for now. Continue aranesp Maintain transfusion support. Updated Visit, March 11, 2022: Unfortunately Lloyd is not maintaining any response to single agent Vidaza and remains transfusion dependent. I spoke with him and his his about seeking an opinion downtown with our Leukemia group as well as Hospice. It was a tearfu meeting as lissette is significantly younger than Lloyd. Updated Visit, February 11, 2022: Patient received 2 units of PRBC on 02/05/22 for hgb of 6.8. Saw cardiology today no changes. Denies any fevers, chill, nausea or vomiting. Overall, other than his normal fatigue, he feels well. Updated Visit, January 14, 2022: Lloyd in good spirit returns to continue treatments for MDS. I think we are making some progress as we haven't had to transfuse him in 4 weeks. WBC counts always start low at the beginning of each cycle but after D5, improve significantly. Hasn't been transfused for 4 weeks - anticipate need this week. Using BiPap and can sleep in bed now. Updated Visit, December 17, 2021: Lloyd is 81 years old and returns with his Lissette in follow-up. He feels much better having had several units transfused and now has a hemoglobin of 10.2. We revisited the discussion of pursuing treatment versus hospice and he is still indeterminant. We discussed pursuing a few more cycles and then reconsidering at that time. He does have some evidence of improvement with improving white blood cell count as well as platelet count improvement. He feels really good following his transfusion and wishes to proceed. Updated Visit, November 29, 2021: Lloyd returns unfortunately had Afib and heart failure with AMI and significant MV regurg. Fatigued. Will consider Hospice. Hold treatment for now and reconsider in 3-4 weeks. Also recovering from pneumonia. Reviewed outside records. Updated Visit, October 25, 2021: Sandip Broussard returns for scheduled follow up. He states that he is feeling slow . He has shortness of breath all the time. He denies any dizziness. He denies any abnormal blood loss. Updated Visit, October 01, 2021: Lloyd is 80 years old and returns with his Lissette for treatment with low-dose Vidaza. He appears to be having some response with improving platelet counts. His only complaints are that of increased abdominal gas. He is otherwise doing well. Continue Retacrit and treatment as recommended. He is safe to proceed. Sees ENT next week No more nose bleeds after stopping Eliquis. Updated Visit, September 17, 2021: Sandip Broussard returns for scheduled follow-up. Since his last visit there has been no significant medical changes. He denies bleeding and abnormal bruising. He denies fevers, chills, night sweats and signs/symptoms of infection. Overall, he feels fairly well. Updated Visit, September 03, 2021: BP improved. Labs stable and platelets have recovered. Was transfused last week and feels better. Neutropenia is disease related and we will continue with treatment. Continue retacrit as Ordered. Transfuse periodically. Updated Visit, August 24, 2021: Lloyd returns today prior to Retacrit during his 2 weeks following Vidaza. Has been having some pain at the base of his skull and is having some dizziness. BP is low - stop Norvasc and Hytrin, and hold Aldactone for now. It is their anniversary today - 49th! Updated Visit, August 06, 2021: Lloyd returns today for follow up and cycle 2 of vidaza. Feeling well. Ran out of his diuretic for a week and had some JANG. Was able to get his medications refilled and is feeling better now. No swelling, chest pain, dizziness, fever, chills or other concerning symptoms. Updated Visit, July 19, 2021: Sandip Broussard returns for follow-up. He received his first cycle of Vidaza 07/09/2021 through 07/13/2021. Overall, he tolerated treatment well without any side effects. He is doing well today and offers no new particular complaints. Updated Visit, July 09, 2021: Hasn't required transfusion since 06/2020. Still profoundly anemic despite adequate dosing of aranesp for CKD. Will proceed with low dose Vidaza. Reviewed plan and goals again. Updated Visit, May 31, 2021: EPO was increased to 80,000 units about 2 weeks ago. Feels the same. reports he still spends most of his day on the couch napping. Patient denies any bleeding. Does have diarrhea, which he has had for over 3 months. 2 loose stools a day. Afraid to go places because of the urgency a/w it. Patient denies bleeding. Does not want to see GI at this time. Has not taken anything for it. No new medications. Updated Visit, May 02, 2021: Lloyd returns with his Lissette and reports that he can't exert himself too much but can get out to the barn and doesn't get dizzy anymore. Still not responding as robustly to increased EPO, so will increase to 80k every 2 weeks. Updated Visit, March 07, 2021: Lloyd returns with his Lissette and was seen by Dr. Wade approximately 1 week ago from ENT. Patient was a little bit confused on instructions given and so I reviewed the recommendations and clarified for Lloyd exactly what his regimen should be. This includes stopping Eliquis as well as aspirin. He appears to be stable from a laboratory perspective but continues to have low platelets and generalized pancytopenia. We discussed again, the goal of his treatment and interventions to be palliative as he requested. He feels well today. Updated Visit, February 21, 2021: Nose bleed Friday- ER plugged it up but then went back on Friday hospitalized until this morning Still seeping blood. Operated on nose- surgery w/ Dr. Marshall Last fall in [place]. Has tranexamic acid at home. Requesting ENT referral at [facility]. He is dehydrated and not keeping up with fluids. Partition Setter is elevated exacerbating cause was likely letting his CPAP reservoir go dry. Ferritin is coming down. Updated Visit, January 10, 2021: Lloyd is here for follow up. After review of his chart, he has stage IV ckd and presented with pancytopenia, including significant anemia requiring transfusion due to GI bleeding and nose bleeds. 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 He has received IV iron in the past along with retacrit, which he is currently receiving every other week. Current goal is quality of life with the least amount visits. He did just have a nose bleed on Friday, and it didn't last long. He made his own plug and kept it in his nose for 24 hours and no additional bleeding. He is taking his eliquis one pill daily, but he held it the last two days due to the nose bleed. He is not on aspirin. Overall he feels well and offers no complaints of significant fatigue, shortness of breath, cough, fever, chills or signs of infections. Updated Visit, November 15, 2020: Sandip Broussard returns for follow-up. He remains on Retacrit 40,000 units every 2 weeks and is tolerating it well. Recently he has noticed pain in the back of his neck. He experienced this same pain when his hemoglobin was low in the past. He states that he takes Tylenol with improvement in the pain. He denies any signs of bleeding. He states that his bruising is better. He is still taking the Eliquis daily at the recommendation of his fashion model. Since stopping the aspirin he has not had any further nosebleeds. He denies fevers, chills, night sweats and signs/symptoms of infection. He has persistent exertional shortness of breath. Updated Visit, September 20, 2020: Lloyd is 79 and returns with his Lissette for discussion on his overall condition as well as his rec to have watchman for A-fib. However, our discussion reveals that he really doesn't want to do anything and that he also doesn't want to take full dose anticoagulation. I pressed him and verified that his goals were to focus on quality of life and get minimally involved in medical procedures. We will continue to monitor his counts and transfuse or give iron and retacrit as necessary, but minimize his follow ups. Updated Visit, August 23, 2020: Lloyd is 79 years old and returns with his Lissette today for multifactorial anemia. His GI bleed was finally found and addressed. They brought in a cake to share in their celebration of their anniversary and Nicki's birthday. He reports that he is no longer lightheaded. Still some fatigue. Now will need Aranesp replacement and iron x 1. He may need low dose dacogen in the future if he is unresponsive. Updated visit, July 26, 2020: Lloyd is 79 years old and returns with his Lissette today having had a capsule endoscopy which was positive for GI bleed. This was stopped and he is now recovering from his blood loss anemia. We will continue supporting him with IV iron as needed but for now we will hold off he will continue need B12 and folic acid. He still has underlying myelodysplasia and stage IV chronic kidney disease which is contributing to his anemia but Corine is not bleeding any longer. Updated Visit, July 03, 2020: Lloyd is 79 years old and returns with his Lissette again requiring additional transfusions because of significantly low hemoglobin. I reviewed his bone marrow biopsy with him which is consistent with myelodysplastic syndrome but he has ongoing melena that is highly suspicious for a GI bleed. To date his endoscopic work-up has been negative but he is due to have a capsule endoscopy that hopefully will reveal the cause of his cytopenias. He feels weak and is in a wheelchair today. Updated Visit, June 15, 2020: Conducted by telephone. Sandip Broussard is a 79 year old male seen for pancytopenia recently having had bone marrow biopsy that is most consistent with. 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 Hopefully his iron deficiency can be corrected and perhaps any evidence of GI bleeding can be attenuated. He sees gastroenterology next week. He may need transfusion support before the weekend even though he was just transfused his 17th unit 2 days ago. I reviewed his bone marrow biopsy results with him and his Lissette in some detail. His erythropoietin level is markedly elevated indicating that supplementation would not help and that his renal failure is not contributing to his anemia. Initial Visit, May 29, 2020: Sandip Broussard presents today Hematology and Oncology evaluation. He is a 79 year old male who is accompanied by his Lissette on urgent referral from Dr. Flash Pearl for pancytopenia, hemoglobin of 5 with both recent EGD and colonoscopy demonstrating no evidence of active bleeding but slight chronic gastritis. He also had several epistaxes as blood to the point of requiring transfusions causing lightheadedness and unsteadiness. Patient states he has had black stools since July 2019. So far extensive work-up has been unrevealing. He has had recent hospitalization and was released on 05/26/2020. Full work-up at that time revealed an adequate erythropoietin response despite elevated creatinine and stage III chronic kidney disease. However his white blood cell count remains suppressed as does his platelet count of less than 100,000. Indeed, his epistaxis may be the cause of his melanotic stools but warrants another look and additionally he will need a bone marrow biopsy. His coags are normal. His red blood cell indices only indicate hypochromasia and macrocytosis. Patient had a bleeding scan that was negative as well. REVIEW OF SYSTEMS Per HPI and otherwise negative by full review of organ systems. ECOG PERFORMANCE STATUS: 2 PHYSICAL EXAMINATION: Vitals: BP 99/42 Pulse 59 Temp (Src) 97.6 (Temporal) Resp 18 Ht 5' 5.394 (1.66m) Wt 234 lb 9.6 oz (106.4kg) SpO2 97[O2 @ 2L]% BMI 38.57 kg/(m^2). Body surface area is 2.22 meters squared. General: Alert and oriented, no distress, pleasant and cooperative. In wheelchair Heart: Regular, normal S1 and S2, no murmurs, rubs, or gallops Lungs: Nonlabored, on O2 Abdomen: Benign Extremities: Feet/ankles without edema, posterior tibial pulses full and symmetrical ALLERGIES: ALLERGIES Allergen Reactions Bee Stings [Other] large hives, swelling at site Coreg [Carvedilol] Hives MEDICATIONS: solifenacin (VESICARE) 5 mg tablet Take 10 mg by mouth once daily. ondansetron (ZOFRAN) 8 mg tablet Take 1 tablet by mouth every 8 hours as needed for nausea/vomiting. prochlorperazine (COMPAZINE) 10 mg tablet Take 1 tablet by mouth every 6 hours as needed. bumetanide (BUMEX) 2 mg tablet Take 2 mg by mouth every evening. omeprazole (PRILOSEC) 40 mg capsule Take 40 mg by mouth once daily. bumetanide (BUMEX) 1 mg tablet Take 1 mg by mouth every morning. potassium chloride SR (MICRO-K) 10 mEq CR capsule Take 10 mEq by mouth once daily. ciprofloxacin HCl (CIPRO) 500 mg tablet Take 500 mg by mouth once daily. FARXIGA 10 mg tablet Take 10 mg by mouth daily with breakfast. metoprolol succinate ER (TOPROL XL) 25 mg 24 hr tablet Take 25 mg by mouth once daily. spironolactone (ALDACTONE) 25 mg tablet Take 25 mg by mouth once daily. aspirin 81 mg chewable tablet CHEW 1 TABLET BY MOUTH EVERY DAY terazosin (HYTRIN) 5 mg capsule Take 5 mg by mouth daily at bedtime. Omeprazole-Sodium Bicarbonate 40-1,680 mg pack Take by mouth. sucralfate (CARAFATE) 1 gram tablet Take 1 g by mouth four times daily. [facility] NASAL OINTMENT Apply to affected area twice daily. atorvastatin (LIPITOR) 20 mg tablet Take 1 tablet by mouth daily at bedtime. colchicine 0.6 mg tablet Take 0.6 mg by mouth as needed. As needed 1-2 times/week lisinopril (ZESTRIL, PRINIVIL) 10 mg tablet Take 1 tablet by mouth once daily. Please resume this medication after PCP follow up ONETOUCH DELICA PLUS LANCET 33 gauge glipiZIDE (GLUCOTROL) 5 mg tablet Take 5 mg by mouth once daily. ONETOUCH ULTRA BLUE TEST STRIP test strip cholecalciferol (VITAMIN D3) 1,000 unit tab tablet 1,000 Units once daily. Only taking 500 units LABORATORY VALUES: WBC (k/uL) Date Value 07/01/2022 1.63 (L) RBC (m/uL) Date Value 07/08/2022 2.33 (L) Hemoglobin (g/dL) Date Value 07/08/2022 7.4 (L) Hematocrit (%) Date Value 07/08/2022 23.2 (L) MCV (fL) Date Value 07/08/2022 99.6 MCH (pg) Date Value 07/08/2022 31.8 MCHC (g/dL) Date Value 07/08/2022 31.9 RDW-CV (%) Date Value 07/08/2022 18.2 (H) Platelet Count (k/uL) Date Value 07/01/2022 72 (L) MPV (fL) Date Value 06/24/2022 14.0 (H) Glucose (mg/dL) Date Value 07/08/2022 130 (H) BUN (mg/dL) Date Value 07/08/2022 20 Creatinine (mg/dL) Date Value 07/08/2022 1.55 (H) Sodium (mmol/L) Date Value 07/08/2022 143 Potassium (mmol/L) Date Value 07/08/2022 4.1 Chloride (mmol/L) Date Value 07/08/2022 103 CO2 (mmol/L) Date Value 07/08/2022 32 (H) Protein, Total (g/dL) Date Value 07/08/2022 6.1 (L) Albumin (g/dL) Date Value 07/08/2022 3.8 (L) Calcium, Total (mg/dL) Date Value 07/08/2022 8.8 Alkaline Phosphatase (U/L) Date Value 07/08/2022 117 (H) Bilirubin, Total (mg/dL) Date Value 07/08/2022 0.8 AST (U/L) Date Value 07/08/2022 22 ALT (U/L) Date Value 07/08/2022 47 Cholesterol, Total (mg/dL) Date Value 06/27/2005 153 Triglyceride (mg/dL) Date Value 06/27/2005 144 DIAGNOSIS: No diagnosis found. PAST MEDICAL HISTORY Diagnosis Date Anemia Anemia of chronic renal failure, stage 4 (severe) (HCC) 08/23/2020 Atrial fibrillation (HCC) Chronic kidney disease CRF (chronic renal failure), stage 4 (severe) (HCC) 08/23/2020 Diabetes mellitus (HCC) GI bleed Hypertension 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 loss 06/15/2020 Leukopenia Sleep apnea Thrombocytopenia (HCC) PAST SURGICAL HISTORY Procedure Laterality Date COLONOSCOPY Social History Tobacco Use Smoking status: Former Types: Pipe Quit date: 1994 Years since quittin.9 Passive exposure: Past Smokeless tobacco: Never Vaping Use Vaping Use: Never used Substance Use Topics Alcohol use: Not Currently Drug use: Not Currently No family history on file. Radha Sandoval PA-C CC: Dr. Flash Gomez (Cardiology [facility] [place]) Dr. Oumou Esposito documented in this encounter [facility] 07-01-2022 Note [facility] 07-01-2022 Miscellaneous Notes Addended by: ASHER HUMMEL on: 07/01/2022 03:13 PM Modules accepted: Orders documented in this encounter [facility] 07-01-2022 Instructions Asher Hummel MD - 07/01/2022 2:38 PM EST Continue low dose decitabine weekly x 2 days (Friday and Friday) Retacrit today and weekly for Hgb < 12 RTC with Wilfred Garcia in 1 week Labs same day. documented in this encounter [facility] 07-01-2022 History of Present illness Narrative Images from the original note were not included. NAME: Sandip Broussard CLINIC NO.: [id number] DATE OF SERVICE: July 01, 2022 (Estephanie) Some elements in this clinic note that are critical to medical decision making have been carefully reviewed and included from a prior clinic note dated: June 24, 2022 (Michelle) Referring Provider: Dr. Flash Pearl Additional Clinicians involved in Sandip Broussard's care: Dr. José Luis Velasquez, Dr. Oumou Wade CC: MDS ASSESSMENT: 81 year old year old man with MDS, stage 4 chronic kidney disease and iron deficiency anemia d/t GI blood loss (seen on capsule endoscopy) and epistaxis. Was receiving high dose EPO every 2 weeks with periodic iron infusions. With persisting cytopenia we started him on Vidaza low dose to see if we could positively impact his pancytopenia and reduce his fatigue as well as his Epo usage. Unfortunately he suffered an acute [place] 11/23/2021 and also developed another GI bleed. He was transfused, and medically managed after catheterization. 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 He was requiring transfusion of PRBCs every 3-4 weeks and there was question of if he was responding to Vidaza. He was seen by Dr. 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 NGS Heme: TET2 p.?, [id number], c.4182+1G>A VAF: 44.5% TET2 p.[id number], [id number], c.5618T>C VAF: 40% ZRSR2 p.R30Vfs*8, [id number], c.88delC VAF: 91.1% And the following variant(s) of uncertain significance: BCORL1 p.R72W [id number]: c.214C>T VAF: 100% PLAN: Continue low dose decitabine weekly x 2 days (Friday and Friday) Retacrit today and weekly for Hgb < 12 RTC with Wilfred / Radha in 1 week Labs same day. TREATMENT TO DATE: 05/20/2022 - Low dose Decitabine weekly. 3. 07/09/2021 - 04/08/2022: Vidaza D1-5 q 28. 2. Retacrit 80,000 units every week. 1. Intermittent IV Iron. HPI: Updated Visit, July 01, 2022: Stable No significant new symptoms - dyspnea is unchanged. Was transfused last week with 2 units with Hgb 8.1 - today is 8.3. Will hold off for [address] Esposito on 07/16/2022 Updated Visit, June 24, 2022: Sandip Broussard returns for follow-up and treatment. He remains on weekly decitabine on Mondays and Tuesdays. He is tolerating treatment well. He denies fevers, chills, night sweats and signs/symptoms of infection. He denies any abnormal bleeding. He does bruise easily. He is having fatigue. He notices himself sleeping more. He has chronic unchanged shortness of breath. Overall, he is doing well. Updated Visit, June 17, 2022: Lloyd returns with his lissette. His left deltoid improving after his decitabine shot 2 weeks ago. Skin had pulled off with it. Still reddened. Hgb 8.4 today Last transfusion was on 06/12/2022. Overall feels pretty good. Exam of left posterior upper arm is with slight erythema and induration with superficial and shallow ulcer of skin 0.5 cm diameter. Area of induration is 1.5 cm diameter. Updated Visit, June 10, 2022: On antibiotic, cefuroxime 500mg BID for ear infection per dr pearl since 05/29/2022, Rafael hartmann. He stopped it early, but his ear started bothering him again so he restarted it. Denies any fevers, chills. Does have an open area on his left deltoid following his dacogen injection from 06/04/22. No drainage. Still with dyspnea and dizziness. Updated Visit, June 03, 2022: Lloyd is in a wheelchair today and reports getting light headed and dyspneic with standing and light activity. Hgb 6.5 today and will need transfusions this week with recheck on Friday. Continue current plan for low dose Decitabine. Will watch platelet counts and monitor neutropenia. Updated Visit, May 20, 2022: Lloyd returns with his Nicki. He was transfused 2 weeks ago. Presents to start dacogen today. Feels weak today and will need transfusion support. Education and consent done and obtained today. Updated Visit, May 06, 2022: Reviewed bone marrow results and labs with them. Will discuss with my colleague Dr. Esposito with respect to starting Dacogen. 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 Will need retacrit today and weekly as well as PRBC transfusion Updated Visit, April 29, 2022: Lloyd returns and has ongoing cytopenias. Awaiting bone marrow biopsy results. Will continue retacrit weekly. No need for transfusion today. Updated Visit, April 22, 2022: Patient saw Dr. Esposito (recommendations are above). Feels about the same. Hgb today is 7.5 Bone marrow scheduled for 04/25/22 Updated Visit, April 08, 2022: Hgb 8.1 today after transfusion 5 days ago. Due to See Dr. Esposito next 04/18/2022 Will cancel Vidaza for now. Continue aranesp Maintain transfusion support. Updated Visit, March 11, 2022: Unfortunately Lloyd is not maintaining any response to single agent Vidaza and remains transfusion dependent. I spoke with him and his his about seeking an opinion downtown with our Leukemia group as well as Hospice. It was a tearfu meeting as lissette is significantly younger than Lloyd. Updated Visit, February 11, 2022: Patient received 2 units of PRBC on 02/05/22 for hgb of 6.8. Saw cardiology today no changes. Denies any fevers, chill, nausea or vomiting. Overall, other than his normal fatigue, he feels well. Updated Visit, January 14, 2022: Lloyd in good spirit returns to continue treatments for MDS. I think we are making some progress as we haven't had to transfuse him in 4 weeks. WBC counts always start low at the beginning of each cycle but after D5, improve significantly. Hasn't been transfused for 4 weeks - anticipate need this week. Using BiPap and can sleep in bed now. Updated Visit, December 17, 2021: Lloyd is 81 years old and returns with his Lissette in follow-up. He feels much better having had several units transfused and now has a hemoglobin of 10.2. We revisited the discussion of pursuing treatment versus hospice and he is still indeterminant. We discussed pursuing a few more cycles and then reconsidering at that time. He does have some evidence of improvement with improving white blood cell count as well as platelet count improvement. He feels really good following his transfusion and wishes to proceed. Updated Visit, November 29, 2021: Lloyd returns unfortunately had Afib and heart failure with AMI and significant MV regurg. Fatigued. Will consider Hospice. Hold treatment for now and reconsider in 3-4 weeks. Also recovering from pneumonia. Reviewed outside records. Updated Visit, October 25, 2021: Sandip Broussard returns for scheduled follow up. He states that he is feeling slow . He has shortness of breath all the time. He denies any dizziness. He denies any abnormal blood loss. Updated Visit, October 01, 2021: Lloyd is 80 years old and returns with his Lissette for treatment with low-dose Vidaza. He appears to be having some response with improving platelet counts. His only complaints are that of increased abdominal gas. He is otherwise doing well. Continue Retacrit and treatment as recommended. He is safe to proceed. Sees ENT next week No more nose bleeds after stopping Eliquis. Updated Visit, September 17, 2021: Sandip Broussard returns for scheduled follow-up. Since his last visit there has been no significant medical changes. He denies bleeding and abnormal bruising. He denies fevers, chills, night sweats and signs/symptoms of infection. Overall, he feels fairly well. Updated Visit, September 03, 2021: BP improved. Labs stable and platelets have recovered. Was transfused last week and feels better. Neutropenia is disease related and we will continue with treatment. Continue retacrit as Ordered. Transfuse periodically. Updated Visit, August 24, 2021: Lloyd returns today prior to Retacrit during his 2 weeks following Vidaza. Has been having some pain at the base of his skull and is having some dizziness. BP is low - stop Norvasc and Hytrin, and hold Aldactone for now. It is their anniversary today - 49th! Updated Visit, August 06, 2021: Lloyd returns today for follow up and cycle 2 of vidaza. Feeling well. Ran out of his diuretic for a week and had some JANG. Was able to get his medications refilled and is feeling better now. No swelling, chest pain, dizziness, fever, chills or other concerning symptoms. Updated Visit, July 19, 2021: Sandip Broussard returns for follow-up. He received his first cycle of Vidaza 07/09/2021 through 07/13/2021. Overall, he tolerated treatment well without any side effects. He is doing well today and offers no new particular complaints. Updated Visit, July 09, 2021: Hasn't required transfusion since 06/2020. Still profoundly anemic despite adequate dosing of aranesp for CKD. Will proceed with low dose Vidaza. Reviewed plan and goals again. Updated Visit, May 31, 2021: EPO was increased to 80,000 units about 2 weeks ago. Feels the same. reports he still spends most of his day on the couch napping. Patient denies any bleeding. Does have diarrhea, which he has had for over 3 months. 2 loose stools a day. Afraid to go places because of the urgency a/w it. Patient denies bleeding. Does not want to see GI at this time. Has not taken anything for it. No new medications. Updated Visit, May 02, 2021: Lloyd returns with his Lissette and reports that he can't exert himself too much but can get out to the barn and doesn't get dizzy anymore. Still not responding as robustly to increased EPO, so will increase to 80k every 2 weeks. Updated Visit, March 07, 2021: Lloyd returns with his Lissette and was seen by Dr. Wade approximately 1 week ago from ENT. Patient was a little bit confused on instructions given and so I reviewed the recommendations and clarified for Lloyd exactly what his regimen should be. This includes stopping Eliquis as well as aspirin. He appears to be stable from a laboratory perspective but continues to have low platelets and generalized pancytopenia. We discussed again, the goal of his treatment and interventions to be palliative as he requested. He feels well today. Updated Visit, February 21, 2021: Nose bleed Friday- ER plugged it up but then went back on Friday hospitalized until this morning Still seeping blood. Operated on nose- surgery w/ Dr. Marshall Last fall in [place]. Has tranexamic acid at home. Requesting ENT referral at [facility]. He is dehydrated and not keeping up with fluids. Partition Setter is elevated exacerbating cause was likely letting his CPAP reservoir go dry. Ferritin is coming down. Updated Visit, January 10, 2021: Lloyd is here for follow up. After review of his chart, he has stage IV ckd and presented with pancytopenia, including significant anemia requiring transfusion due to GI bleeding and nose bleeds. 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 He has received IV iron in the past along with retacrit, which he is currently receiving every other week. Current goal is quality of life with the least amount visits. He did just have a nose bleed on Friday, and it didn't last long. He made his own plug and kept it in his nose for 24 hours and no additional bleeding. He is taking his eliquis one pill daily, but he held it the last two days due to the nose bleed. He is not on aspirin. Overall he feels well and offers no complaints of significant fatigue, shortness of breath, cough, fever, chills or signs of infections. Updated Visit, November 15, 2020: Sandip Broussard returns for follow-up. He remains on Retacrit 40,000 units every 2 weeks and is tolerating it well. Recently he has noticed pain in the back of his neck. He experienced this same pain when his hemoglobin was low in the past. He states that he takes Tylenol with improvement in the pain. He denies any signs of bleeding. He states that his bruising is better. He is still taking the Eliquis daily at the recommendation of his fashion model. Since stopping the aspirin he has not had any further nosebleeds. He denies fevers, chills, night sweats and signs/symptoms of infection. He has persistent exertional shortness of breath. Updated Visit, September 20, 2020: Lloyd is 79 and returns with his Lissette for discussion on his overall condition as well as his rec to have watchman for A-fib. However, our discussion reveals that he really doesn't want to do anything and that he also doesn't want to take full dose anticoagulation. I pressed him and verified that his goals were to focus on quality of life and get minimally involved in medical procedures. We will continue to monitor his counts and transfuse or give iron and retacrit as necessary, but minimize his follow ups. Updated Visit, August 23, 2020: Lloyd is 79 years old and returns with his Lissette today for multifactorial anemia. His GI bleed was finally found and addressed. They brought in a cake to share in their celebration of their anniversary and Nicki's birthday. He reports that he is no longer lightheaded. Still some fatigue. Now will need Aranesp replacement and iron x 1. He may need low dose dacogen in the future if he is unresponsive. Updated visit, July 26, 2020: Lloyd is 79 years old and returns with his Lissette today having had a capsule endoscopy which was positive for GI bleed. This was stopped and he is now recovering from his blood loss anemia. We will continue supporting him with IV iron as needed but for now we will hold off he will continue need B12 and folic acid. He still has underlying myelodysplasia and stage IV chronic kidney disease which is contributing to his anemia but Corine is not bleeding any longer. Updated Visit, July 03, 2020: Lloyd is 79 years old and returns with his Lissette again requiring additional transfusions because of significantly low hemoglobin. I reviewed his bone marrow biopsy with him which is consistent with myelodysplastic syndrome but he has ongoing melena that is highly suspicious for a GI bleed. To date his endoscopic work-up has been negative but he is due to have a capsule endoscopy that hopefully will reveal the cause of his cytopenias. He feels weak and is in a wheelchair today. Updated Visit, June 15, 2020: Conducted by telephone. Sandip Broussard is a 79 year old male seen for pancytopenia recently having had bone marrow biopsy that is most consistent with. 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 Hopefully his iron deficiency can be corrected and perhaps any evidence of GI bleeding can be attenuated. He sees gastroenterology next week. He may need transfusion support before the weekend even though he was just transfused his 17th unit 2 days ago. I reviewed his bone marrow biopsy results with him and his Lissette in some detail. His erythropoietin level is markedly elevated indicating that supplementation would not help and that his renal failure is not contributing to his anemia. Initial Visit, May 29, 2020: Sandip Broussard presents today Hematology and Oncology evaluation. He is a 79 year old male who is accompanied by his Lissette on urgent referral from Dr. Flash Pearl for pancytopenia, hemoglobin of 5 with both recent EGD and colonoscopy demonstrating no evidence of active bleeding but slight chronic gastritis. He also had several epistaxes as blood to the point of requiring transfusions causing lightheadedness and unsteadiness. Patient states he has had black stools since July 2019. So far extensive work-up has been unrevealing. He has had recent hospitalization and was released on 05/26/2020. Full work-up at that time revealed an adequate erythropoietin response despite elevated creatinine and stage III chronic kidney disease. However his white blood cell count remains suppressed as does his platelet count of less than 100,000. Indeed, his epistaxis may be the cause of his melanotic stools but warrants another look and additionally he will need a bone marrow biopsy. His coags are normal. His red blood cell indices only indicate hypochromasia and macrocytosis. Patient had a bleeding scan that was negative as well. REVIEW OF SYSTEMS Per HPI and otherwise negative by full review of organ systems. ECOG PERFORMANCE STATUS: 2 PHYSICAL EXAMINATION: Vitals: BP 104/54 Pulse 77 Temp (Src) 97.6 (Temporal) Resp 16 Ht 5' 5.394 (1.66m) Wt 231 lb 9.6 oz (105.1kg) SpO2 95[O2 @ 2L]% BMI 38.08 kg/(m^2). Body surface area is 2.2 meters squared. Exam limited to gross visualization where appropriate due to COVID-19. Gen.: This is an age-appropriate patient in no acute distress. Head: Appears atraumatic with no visible lesions. Eyes: Pupils equally round and reactive to light, extraocular muscles are intact. Neck: Supple. Mouth: Masked. Respiratory: Appears to be respiring comfortably. Neurologic: Nonfocal to gross visualization. Alert and oriented 3. Psychiatric: No evidence of inappropriate anxiety or depression. Skin: Visible areas of skin without rash, lesions, wounds or petechiae. ALLERGIES: ALLERGIES Allergen Reactions Bee Stings [Other] large hives, swelling at site Coreg [Carvedilol] Hives MEDICATIONS: solifenacin (VESICARE) 5 mg tablet Take 10 mg by mouth once daily. ondansetron (ZOFRAN) 8 mg tablet Take 1 tablet by mouth every 8 hours as needed for nausea/vomiting. prochlorperazine (COMPAZINE) 10 mg tablet Take 1 tablet by mouth every 6 hours as needed. bumetanide (BUMEX) 2 mg tablet Take 2 mg by mouth every evening. omeprazole (PRILOSEC) 40 mg capsule Take 40 mg by mouth once daily. bumetanide (BUMEX) 1 mg tablet Take 1 mg by mouth every morning. potassium chloride SR (MICRO-K) 10 mEq CR capsule Take 10 mEq by mouth once daily. ciprofloxacin HCl (CIPRO) 500 mg tablet Take 500 mg by mouth once daily. FARXIGA 10 mg tablet Take 10 mg by mouth daily with breakfast. metoprolol succinate ER (TOPROL XL) 25 mg 24 hr tablet Take 25 mg by mouth once daily. spironolactone (ALDACTONE) 25 mg tablet Take 25 mg by mouth once daily. aspirin 81 mg chewable tablet CHEW 1 TABLET BY MOUTH EVERY DAY terazosin (HYTRIN) 5 mg capsule Take 5 mg by mouth daily at bedtime. Omeprazole-Sodium Bicarbonate 40-1,680 mg pack Take by mouth. sucralfate (CARAFATE) 1 gram tablet Take 1 g by mouth four times daily. [facility] NASAL OINTMENT Apply to affected area twice daily. atorvastatin (LIPITOR) 20 mg tablet Take 1 tablet by mouth daily at bedtime. colchicine 0.6 mg tablet Take 0.6 mg by mouth as needed. As needed 1-2 times/week ONETOUCH DELICA PLUS LANCET 33 gauge glipiZIDE (GLUCOTROL) 5 mg tablet Take 5 mg by mouth once daily. ONETOUCH ULTRA BLUE TEST STRIP test strip cholecalciferol (VITAMIN D3) 1,000 unit tab tablet 1,000 Units once daily. Only taking 500 units lisinopril (ZESTRIL, PRINIVIL) 10 mg tablet Take 1 tablet by mouth once daily. Please resume this medication after PCP follow up LABORATORY VALUES: WBC (k/uL) Date Value 06/24/2022 1.79 (L) RBC (m/uL) Date Value 07/01/2022 2.62 (L) Hemoglobin (g/dL) Date Value 07/01/2022 8.3 (L) Hematocrit (%) Date Value 07/01/2022 25.8 (L) MCV (fL) Date Value 07/01/2022 98.5 MCH (pg) Date Value 07/01/2022 31.7 MCHC (g/dL) Date Value 07/01/2022 32.2 RDW-CV (%) Date Value 07/01/2022 17.9 (H) Platelet Count (k/uL) Date Value 06/24/2022 72 (L) MPV (fL) Date Value 06/24/2022 14.0 (H) Glucose (mg/dL) Date Value 07/01/2022 123 (H) BUN (mg/dL) Date Value 07/01/2022 21 Creatinine (mg/dL) Date Value 07/01/2022 1.43 (H) Sodium (mmol/L) Date Value 07/01/2022 143 Potassium (mmol/L) Date Value 07/01/2022 3.9 Chloride (mmol/L) Date Value 07/01/2022 103 CO2 (mmol/L) Date Value 07/01/2022 32 (H) Protein, Total (g/dL) Date Value 07/01/2022 6.2 (L) Albumin (g/dL) Date Value 07/01/2022 3.8 (L) Calcium, Total (mg/dL) Date Value 07/01/2022 8.8 Alkaline Phosphatase (U/L) Date Value 07/01/2022 118 (H) Bilirubin, Total (mg/dL) Date Value 07/01/2022 1.0 AST (U/L) Date Value 07/01/2022 20 ALT (U/L) Date Value 07/01/2022 44 Cholesterol, Total (mg/dL) Date Value 06/27/2005 153 Triglyceride (mg/dL) Date Value 06/27/2005 144 DIAGNOSIS: (D46.9) MDS (myelodysplastic syndrome) (HCC) (primary encounter diagnosis) (N18.4) CRF (chronic renal failure), stage 4 (severe) (HCC) (N18.4, D63.1) Anemia of chronic renal failure, stage 4 (severe) (HCC) (E83.111) 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 transfusions (N18.4) CKD (chronic kidney disease) stage 4, GFR 15-29 ml/min (HCC) PAST MEDICAL HISTORY Diagnosis Date Anemia Anemia of chronic renal failure, stage 4 (severe) (HCC) 08/23/2020 Atrial fibrillation (HCC) Chronic kidney disease CRF (chronic renal failure), stage 4 (severe) (HCC) 08/23/2020 Diabetes mellitus (HCC) GI bleed Hypertension 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 loss 06/15/2020 Leukopenia Sleep apnea Thrombocytopenia (HCC) PAST SURGICAL HISTORY Procedure Laterality Date COLONOSCOPY Social History Tobacco Use Smoking status: Former Types: Pipe Quit date: 1994 Years since quittin.9 Passive exposure: Past Smokeless tobacco: Never Vaping Use Vaping Use: Never used Substance Use Topics Alcohol use: Not Currently Drug use: Not Currently No family history on file. I spent a total of 30 minutes on the date of the service which included preparing to see the patient, [id number] patient care, completing clinical documentation, performing a medically appropriate examination, counseling and educating the patient/family/caregiver, ordering medications, tests, or procedures, and independently interpreting results (not separately reported). Asher Hummel MD, CPE Hematology and Oncology Services Provided at: [place], [place] CC: Dr. Flash Gomez (Cardiology [facility]) Dr. Oumou Esposito documented in this encounter [facility] 06-24-2022 Note HNO ID: [id number] Author: Lexi Velasquez RN Service: ? Author Type: Registered Nurse Type: Progress Notes Filed: 06/24/2022 3:04 PM Note Text: Patient to get a transfusion per HMartinez. Lexi Velasquez RN [facility] 06-24-2022 Note [facility] 06-24-2022 History of Present illness Narrative Patient to get a transfusion per HMartinez. Lexi Velasquez RN documented in this encounter [facility] 06-24-2022 History of Present illness Narrative Images from the original note were not included. NAME: Sandip Broussard [facility] NO.: [id number] DATE OF SERVICE: June 24, 2022 (Michelle) Some elements in this clinic note that are critical to medical decision making have been carefully reviewed and included from a prior clinic note dated: June 10, 2022. (Dr. Hummel) Referring Provider: Dr. Flash Pearl Additional Clinicians involved in Sandip Broussard's care: Dr. José Luis Velasquez, Dr. Oumou Wade CC: MDS ASSESSMENT: 81 year old year old man with MDS, stage 4 chronic kidney disease and iron deficiency anemia d/t GI blood loss (seen on capsule endoscopy) and epistaxis. Was receiving high dose EPO every 2 weeks with periodic iron infusions. With persisting cytopenia we started him on Vidaza low dose to see if we could positively impact his pancytopenia and reduce his fatigue as well as his Epo usage. Unfortunately he suffered an acute [place] 11/23/2021 and also developed another GI bleed. He was transfused, and medically managed after catheterization. 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 He was requiring transfusion of PRBCs every 3-4 weeks and there was question of if he was responding to Vidaza. He was seen by Dr. 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 NGS Heme: TET2 p.?, [id number], c.4182+1G>A VAF: 44.5% TET2 p.Y3924P, [id number], c.5618T>C VAF: 40% ZRSR2 p.R30Vfs*8, [id number], c.88delC VAF: 91.1% And the following variant(s) of uncertain significance: BCORL1 p.R72W [id number]: c.214C>T VAF: 100% PLAN: Continue low dose decitabine weekly x 2 days (Friday and Friday) Retacrit today and weekly for Hgb < 12 Transfuse 2 unit PRBCs for Hgb < 8.5 (This week on Friday @ [facility] please) Follow up in 1 week with labs. TREATMENT TO DATE: 4. 05/20/2022 - Low dose Decitabine weekly. 3. 07/09/2021 - 04/08/2022: Vidaza D1-5 q 28. 2. Retacrit 80,000 units every week. 1. Intermittent IV Iron. HPI: Updated Visit, June 24, 2022: Sandip Broussard returns for follow-up and treatment. He remains on weekly decitabine on Mondays and Tuesdays. He is tolerating treatment well. He denies fevers, chills, night sweats and signs/symptoms of infection. He denies any abnormal bleeding. He does bruise easily. He is having fatigue. He notices himself sleeping more. He has chronic unchanged shortness of breath. Overall, he is doing well. Updated Visit, June 17, 2022: Lloyd returns with his lissette. His left deltoid improving after his decitabine shot 2 weeks ago. Skin had pulled off with it. Still reddened. Hgb 8.4 today Last transfusion was on 06/12/2022. Overall feels pretty good. Exam of left posterior upper arm is with slight erythema and induration with superficial and shallow ulcer of skin 0.5 cm diameter. Area of induration is 1.5 cm diameter. Updated Visit, June 10, 2022: On antibiotic, cefuroxime 500mg BID for ear infection per dr pearl since 05/29/2022, Rafael hartmann. He stopped it early, but his ear started bothering him again so he restarted it. Denies any fevers, chills. Does have an open area on his left deltoid following his dacogen injection from 06/04/22. No drainage. Still with dyspnea and dizziness. Updated Visit, June 03, 2022: Lloyd is in a wheelchair today and reports getting light headed and dyspneic with standing and light activity. Hgb 6.5 today and will need transfusions this week with recheck on Friday. Continue current plan for low dose Decitabine. Will watch platelet counts and monitor neutropenia. Updated Visit, May 20, 2022: Lloyd returns with his Nicki. He was transfused 2 weeks ago. Presents to start dacogen today. Feels weak today and will need transfusion support. Education and consent done and obtained today. Updated Visit, May 06, 2022: Reviewed bone marrow results and labs with them. Will discuss with my colleague Dr. Esposito with respect to starting Dacogen. 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 Will need retacrit today and weekly as well as PRBC transfusion Updated Visit, April 29, 2022: Lloyd returns and has ongoing cytopenias. Awaiting bone marrow biopsy results. Will continue retacrit weekly. No need for transfusion today. Updated Visit, April 22, 2022: Patient saw Dr. Esposito (recommendations are above). Feels about the same. Hgb today is 7.5 Bone marrow scheduled for 04/25/22 Updated Visit, April 08, 2022: Hgb 8.1 today after transfusion 5 days ago. Due to See Dr. Esposito next 04/18/2022 Will cancel Vidaza for now. Continue aranesp Maintain transfusion support. Updated Visit, March 11, 2022: Unfortunately Lloyd is not maintaining any response to single agent Vidaza and remains transfusion dependent. I spoke with him and his his about seeking an opinion downtown with our Leukemia group as well as Hospice. It was a tearfu meeting as lissette is significantly younger than Lloyd. Updated Visit, February 11, 2022: Patient received 2 units of PRBC on 02/05/22 for hgb of 6.8. Saw cardiology today no changes. Denies any fevers, chill, nausea or vomiting. Overall, other than his normal fatigue, he feels well. Updated Visit, January 14, 2022: Lloyd in good spirit returns to continue treatments for MDS. I think we are making some progress as we haven't had to transfuse him in 4 weeks. WBC counts always start low at the beginning of each cycle but after D5, improve significantly. Hasn't been transfused for 4 weeks - anticipate need this week. Using BiPap and can sleep in bed now. Updated Visit, December 17, 2021: Lloyd is 81 years old and returns with his Lissette in follow-up. He feels much better having had several units transfused and now has a hemoglobin of 10.2. We revisited the discussion of pursuing treatment versus hospice and he is still indeterminant. We discussed pursuing a few more cycles and then reconsidering at that time. He does have some evidence of improvement with improving white blood cell count as well as platelet count improvement. He feels really good following his transfusion and wishes to proceed. Updated Visit, November 29, 2021: Lloyd returns unfortunately had Afib and heart failure with AMI and significant MV regurg. Fatigued. Will consider Hospice. Hold treatment for now and reconsider in 3-4 weeks. Also recovering from pneumonia. Reviewed outside records. Updated Visit, October 25, 2021: Sandip Broussard returns for scheduled follow up. He states that he is feeling slow . He has shortness of breath all the time. He denies any dizziness. He denies any abnormal blood loss. Updated Visit, October 01, 2021: Lloyd is 80 years old and returns with his Lissette for treatment with low-dose Vidaza. He appears to be having some response with improving platelet counts. His only complaints are that of increased abdominal gas. He is otherwise doing well. Continue Retacrit and treatment as recommended. He is safe to proceed. Sees ENT next week No more nose bleeds after stopping Eliquis. Updated Visit, September 17, 2021: Sandip Broussard returns for scheduled follow-up. Since his last visit there has been no significant medical changes. He denies bleeding and abnormal bruising. He denies fevers, chills, night sweats and signs/symptoms of infection. Overall, he feels fairly well. Updated Visit, September 03, 2021: BP improved. Labs stable and platelets have recovered. Was transfused last week and feels better. Neutropenia is disease related and we will continue with treatment. Continue retacrit as Ordered. Transfuse periodically. Updated Visit, August 24, 2021: Lloyd returns today prior to Retacrit during his 2 weeks following Vidaza. Has been having some pain at the base of his skull and is having some dizziness. BP is low - stop Norvasc and Hytrin, and hold Aldactone for now. It is their anniversary today - 49th! Updated Visit, August 06, 2021: Lloyd returns today for follow up and cycle 2 of vidaza. Feeling well. Ran out of his diuretic for a week and had some JANG. Was able to get his medications refilled and is feeling better now. No swelling, chest pain, dizziness, fever, chills or other concerning symptoms. Updated Visit, July 19, 2021: Sandip Broussard returns for follow-up. He received his first cycle of Vidaza 07/09/2021 through 07/13/2021. Overall, he tolerated treatment well without any side effects. He is doing well today and offers no new particular complaints. Updated Visit, July 09, 2021: Hasn't required transfusion since 06/2020. Still profoundly anemic despite adequate dosing of aranesp for CKD. Will proceed with low dose Vidaza. Reviewed plan and goals again. Updated Visit, May 31, 2021: EPO was increased to 80,000 units about 2 weeks ago. Feels the same. reports he still spends most of his day on the couch napping. Patient denies any bleeding. Does have diarrhea, which he has had for over 3 months. 2 loose stools a day. Afraid to go places because of the urgency a/w it. Patient denies bleeding. Does not want to see GI at this time. Has not taken anything for it. No new medications. Updated Visit, May 02, 2021: Lloyd returns with his Lissette and reports that he can't exert himself too much but can get out to the barn and doesn't get dizzy anymore. Still not responding as robustly to increased EPO, so will increase to 80k every 2 weeks. Updated Visit, March 07, 2021: Lloyd returns with his Lissette and was seen by Dr. Wade approximately 1 week ago from ENT. Patient was a little bit confused on instructions given and so I reviewed the recommendations and clarified for Lloyd exactly what his regimen should be. This includes stopping Eliquis as well as aspirin. He appears to be stable from a laboratory perspective but continues to have low platelets and generalized pancytopenia. We discussed again, the goal of his treatment and interventions to be palliative as he requested. He feels well today. Updated Visit, February 21, 2021: Nose bleed Friday- ER plugged it up but then went back on Friday hospitalized until this morning Still seeping blood. Operated on nose- surgery w/ Dr. Marshall Last fall in [place]. Has tranexamic acid at home. Requesting ENT referral at [facility]. He is dehydrated and not keeping up with fluids. Partition Setter is elevated exacerbating cause was likely letting his CPAP reservoir go dry. Ferritin is coming down. Updated Visit, January 10, 2021: Lloyd is here for follow up. After review of his chart, he has stage IV ckd and presented with pancytopenia, including significant anemia requiring transfusion due to GI bleeding and nose bleeds. 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 He has received IV iron in the past along with retacrit, which he is currently receiving every other week. Current goal is quality of life with the least amount visits. He did just have a nose bleed on Friday, and it didn't last long. He made his own plug and kept it in his nose for 24 hours and no additional bleeding. He is taking his eliquis one pill daily, but he held it the last two days due to the nose bleed. He is not on aspirin. Overall he feels well and offers no complaints of significant fatigue, shortness of breath, cough, fever, chills or signs of infections. Updated Visit, November 15, 2020: Sandip Broussard returns for follow-up. He remains on Retacrit 40,000 units every 2 weeks and is tolerating it well. Recently he has noticed pain in the back of his neck. He experienced this same pain when his hemoglobin was low in the past. He states that he takes Tylenol with improvement in the pain. He denies any signs of bleeding. He states that his bruising is better. He is still taking the Eliquis daily at the recommendation of his fashion model. Since stopping the aspirin he has not had any further nosebleeds. He denies fevers, chills, night sweats and signs/symptoms of infection. He has persistent exertional shortness of breath. Updated Visit, September 20, 2020: Lloyd is 79 and returns with his Lissette for discussion on his overall condition as well as his rec to have watchman for A-fib. However, our discussion reveals that he really doesn't want to do anything and that he also doesn't want to take full dose anticoagulation. I pressed him and verified that his goals were to focus on quality of life and get minimally involved in medical procedures. We will continue to monitor his counts and transfuse or give iron and retacrit as necessary, but minimize his follow ups. Updated Visit, August 23, 2020: Lloyd is 79 years old and returns with his Lissette today for multifactorial anemia. His GI bleed was finally found and addressed. They brought in a cake to share in their celebration of their anniversary and Nicki's birthday. He reports that he is no longer lightheaded. Still some fatigue. Now will need Aranesp replacement and iron x 1. He may need low dose dacogen in the future if he is unresponsive. Updated visit, July 26, 2020: Lloyd is 79 years old and returns with his Lissette today having had a capsule endoscopy which was positive for GI bleed. This was stopped and he is now recovering from his blood loss anemia. We will continue supporting him with IV iron as needed but for now we will hold off he will continue need B12 and folic acid. He still has underlying myelodysplasia and stage IV chronic kidney disease which is contributing to his anemia but Corine is not bleeding any longer. Updated Visit, July 03, 2020: Lloyd is 79 years old and returns with his Lissette again requiring additional transfusions because of significantly low hemoglobin. I reviewed his bone marrow biopsy with him which is consistent with myelodysplastic syndrome but he has ongoing melena that is highly suspicious for a GI bleed. To date his endoscopic work-up has been negative but he is due to have a capsule endoscopy that hopefully will reveal the cause of his cytopenias. He feels weak and is in a wheelchair today. Updated Visit, June 15, 2020: Conducted by telephone. Sandip Broussard is a 79 year old male seen for pancytopenia recently having had bone marrow biopsy that is most consistent with. 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 Hopefully his iron deficiency can be corrected and perhaps any evidence of GI bleeding can be attenuated. He sees gastroenterology next week. He may need transfusion support before the weekend even though he was just transfused his 17th unit 2 days ago. I reviewed his bone marrow biopsy results with him and his Lissette in some detail. His erythropoietin level is markedly elevated indicating that supplementation would not help and that his renal failure is not contributing to his anemia. Initial Visit, May 29, 2020: Sandip Broussard presents today Hematology and Oncology evaluation. He is a 79 year old male who is accompanied by his Lissette on urgent referral from Dr. Flash Pearl for pancytopenia, hemoglobin of 5 with both recent EGD and colonoscopy demonstrating no evidence of active bleeding but slight chronic gastritis. He also had several epistaxes as blood to the point of requiring transfusions causing lightheadedness and unsteadiness. Patient states he has had black stools since July 2019. So far extensive work-up has been unrevealing. He has had recent hospitalization and was released on 05/26/2020. Full work-up at that time revealed an adequate erythropoietin response despite elevated creatinine and stage III chronic kidney disease. However his white blood cell count remains suppressed as does his platelet count of less than 100,000. Indeed, his epistaxis may be the cause of his melanotic stools but warrants another look and additionally he will need a bone marrow biopsy. His coags are normal. His red blood cell indices only indicate hypochromasia and macrocytosis. Patient had a bleeding scan that was negative as well. REVIEW OF SYSTEMS Per HPI and otherwise negative by full review of organ systems. ECOG PERFORMANCE STATUS: 2 PHYSICAL EXAMINATION: Vitals: BP 97/52 Pulse 74 Temp (Src) 97.4 (Temporal) Resp 16 Ht 5' 5.394 (1.66m) Wt 230 lb 9.6 oz (104.6kg) SpO2 95[2 liters today]% BMI 37.91 kg/(m^2). Body surface area is 2.2 meters squared. Exam limited to gross visualization where appropriate due to COVID-19. Gen.: This is an age-appropriate patient in no acute distress. Head: Appears atraumatic with no visible lesions. Eyes: Pupils equally round and reactive to light, extraocular muscles are intact. Neck: Supple. Mouth: Masked. Respiratory: Appears to be respiring comfortably. Neurologic: Nonfocal to gross visualization. Alert and oriented 3. Psychiatric: No evidence of inappropriate anxiety or depression. Skin: Visible areas of skin without rash, lesions, wounds or petechiae. ALLERGIES: ALLERGIES Allergen Reactions Bee Stings [Other] large hives, swelling at site Coreg [Carvedilol] Hives MEDICATIONS: ondansetron (ZOFRAN) 8 mg tablet Take 1 tablet by mouth every 8 hours as needed for nausea/vomiting. prochlorperazine (COMPAZINE) 10 mg tablet Take 1 tablet by mouth every 6 hours as needed. bumetanide (BUMEX) 2 mg tablet Take 2 mg by mouth every evening. omeprazole (PRILOSEC) 40 mg capsule Take 40 mg by mouth once daily. bumetanide (BUMEX) 1 mg tablet Take 1 mg by mouth every morning. potassium chloride SR (MICRO-K) 10 mEq CR capsule Take 10 mEq by mouth once daily. ciprofloxacin HCl (CIPRO) 500 mg tablet Take 500 mg by mouth once daily. FARXIGA 10 mg tablet Take 10 mg by mouth daily with breakfast. metoprolol succinate ER (TOPROL XL) 25 mg 24 hr tablet Take 25 mg by mouth once daily. spironolactone (ALDACTONE) 25 mg tablet Take 25 mg by mouth once daily. aspirin 81 mg chewable tablet CHEW 1 TABLET BY MOUTH EVERY DAY terazosin (HYTRIN) 5 mg capsule Take 5 mg by mouth daily at bedtime. Omeprazole-Sodium Bicarbonate 40-1,680 mg pack Take by mouth. sucralfate (CARAFATE) 1 gram tablet Take 1 g by mouth four times daily. [facility] NASAL OINTMENT Apply to affected area twice daily. atorvastatin (LIPITOR) 20 mg tablet Take 1 tablet by mouth daily at bedtime. colchicine 0.6 mg tablet Take 0.6 mg by mouth as needed. As needed 1-2 times/week lisinopril (ZESTRIL, PRINIVIL) 10 mg tablet Take 1 tablet by mouth once daily. Please resume this medication after PCP follow up ONETOUCH DELICA PLUS LANCET 33 gauge glipiZIDE (GLUCOTROL) 5 mg tablet Take 5 mg by mouth once daily. ONETOUCH ULTRA BLUE TEST STRIP test strip cholecalciferol (VITAMIN D3) 1,000 unit tab tablet 1,000 Units once daily. Only taking 500 units LABORATORY VALUES: Hemoglobin (g/dL) Date Value 06/24/2022 8.1 09/17/2021 7.9 Hematocrit (%) Date Value 06/24/2022 25.5 09/17/2021 24.9 WBC (k/uL) Date Value 06/24/2022 1.79 09/17/2021 2.44 Platelet Count (k/uL) Date Value 06/24/2022 72 09/17/2021 83 DIAGNOSIS: (D46.9) MDS (myelodysplastic syndrome) (HCC) (primary encounter diagnosis) (N18.4) CRF (chronic renal failure), stage 4 (severe) ([facility]) (N18.4, D63.1) Anemia of chronic renal failure, stage 4 (severe) (HCC) PAST MEDICAL HISTORY Diagnosis Date Anemia Anemia of chronic renal failure, stage 4 (severe) (HCC) 08/23/2020 Atrial fibrillation (HCC) Chronic kidney disease CRF (chronic renal failure), stage 4 (severe) (HCC) 08/23/2020 Diabetes mellitus (HCC) GI bleed Hypertension 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 loss 06/15/2020 Leukopenia Sleep apnea Thrombocytopenia (HCC) PAST SURGICAL HISTORY Procedure Laterality Date COLONOSCOPY Social History Tobacco Use Smoking status: Former Types: Pipe Quit date: 1994 Years since quittin.9 Passive exposure: Past Smokeless tobacco: Never Vaping Use Vaping Use: Never used Substance Use Topics Alcohol use: Not Currently Drug use: Not Currently Wilfred Martinez APRN.CNP Hematology and Oncology Services Provided at: [place], [place] CC: Dr. Flash Gomez (Cardiology [facility]) Dr. Oumou Esposito I spent a total of 30 minutes on the date of the service which included preparing to see the patient, [id number] patient care, completing clinical documentation, obtaining and/or reviewing separately obtained history, performing a medically appropriate examination, counseling and educating the patient/family/caregiver, ordering medications, tests, or procedures, independently interpreting results (not separately reported), and communicating results to the patient/family/caregiver. documented in this encounter [facility] 06-17-2022 Note [facility] 06-17-2022 Miscellaneous Notes 1 unit packed RBC's at [facility] on Fri06-19-22 9am. Patient to do his lab on Friday06-17-22. documented in this encounter [facility] 06-17-2022 Instructions Asher Hummel MD - 06/17/2022 10:40 AM EST Continue low dose decitabine weekly x 2 days (Fri, Fri) Retacrit today and weekly for Hgb < 12 Transfuse 2 unit PRBCs for Hgb < 8.5 (this week on Friday @ [facility] please) Labs again once / week here RTC in 1 weeks - with labs - see Michelle documented in this encounter [facility] 06-17-2022 History of Present illness Narrative Images from the original note were not included. NAME: Sandip Broussard CLINIC NO.: [id number] DATE OF SERVICE: June 17, 2022 (Estephanie) Some elements in this clinic note that are critical to medical decision making have been carefully reviewed and included from a prior clinic note dated: June 10, 2022 (Radha Sandoval PA-C) Referring Provider: Dr. Flash Pearl Additional Clinicians involved in Sandip Broussard's care: Dr. José Luis Velasquez, Dr. Oumou Wade CC: MDS ASSESSMENT: 81 year old year old man with MDS, stage 4 chronic kidney disease and iron deficiency anemia d/t GI blood loss (seen on capsule endoscopy) and epistaxis. Was receiving high dose EPO every 2 weeks with periodic iron infusions. With persisting cytopenia we started him on Vidaza low dose to see if we could positively impact his pancytopenia and reduce his fatigue as well as his Epo usage. Unfortunately he suffered an acute [place] 11/23/2021 and also developed another GI bleed. He was transfused, and medically managed after catheterization. 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 He was requiring transfusion of PRBCs every 3-4 weeks.and there was question of if he was responding to Vidaza. He was seen by Dr. 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 NGS Heme: TET2 p.?, [id number], c.4182+1G>A VAF: 44.5% TET2 p.O9922Q, [id number], c.5618T>C VAF: 40% ZRSR2 p.R30Vfs*8, [id number], c.88delC VAF: 91.1% And the following variant(s) of uncertain significance: BCORL1 p.R72W [id number]: c.214C>T VAF: 100% PLAN: Continue low dose decitabine weekly x 2 days (Fri, Fri) Retacrit today and weekly for Hgb < 12 Transfuse 2 unit PRBCs for Hgb < 8.5 (this week on Friday @ [facility] please) Labs again once / week here RTC in 1 weeks - with labs - see Michelle TREATMENT TO DATE: 4. 05/20/2022 - Low dose Decitabine weekly 3. 07/09/2021 - 04/08/2022: Vidaza D1-5 q 28. 2. Retacrit 80,000 units every week 1. Intermittent IV Iron HPI: Updated Visit, June 17, 2022: Lloyd returns with his lissette. His left deltoid improving after his decitabine shot 2 weeks ago. Skin had pulled off with it. Still reddened. Hgb 8.4 today Last transfusion was on 06/12/2022. Overall feels pretty good. Exam of left posterior upper arm is with slight erythema and induration with superficial and shallow ulcer of skin 0.5 cm diameter. Area of induration is 1.5 cm diameter. Updated Visit, June 10, 2022: On antibiotic, cefuroxime 500mg BID for ear infection per dr pearl since 05/29/2022, Rafael hartmann. He stopped it early, but his ear started bothering him again so he restarted it. Denies any fevers, chills. Does have an open area on his left deltoid following his dacogen injection from 06/04/22. No drainage. Still with dyspnea and dizziness. Updated Visit, June 03, 2022: Lloyd is in a wheelchair today and reports getting light headed and dyspneic with standing and light activity. Hgb 6.5 today and will need transfusions this week with recheck on Friday. Continue current plan for low dose Decitabine. Will watch platelet counts and monitor neutropenia. Updated Visit, May 20, 2022: Lloyd returns with his Nicki. He was transfused 2 weeks ago. Presents to start dacogen today. Feels weak today and will need transfusion support. Education and consent done and obtained today. Updated Visit, May 06, 2022: Reviewed bone marrow results and labs with them. Will discuss with my colleague Dr. Esposito with respect to starting Dacogen. 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 Will need retacrit today and weekly as well as PRBC transfusion Updated Visit, April 29, 2022: Lloyd returns and has ongoing cytopenias. Awaiting bone marrow biopsy results. Will continue retacrit weekly. No need for transfusion today. Updated Visit, April 22, 2022: Patient saw Dr. Esposito (recommendations are above). Feels about the same. Hgb today is 7.5 Bone marrow scheduled for 04/25/22 Updated Visit, April 08, 2022: Hgb 8.1 today after transfusion 5 days ago. Due to See Dr. Esposito next 04/18/2022 Will cancel Vidaza for now. Continue aranesp Maintain transfusion support. Updated Visit, March 11, 2022: Unfortunately Lloyd is not maintaining any response to single agent Vidaza and remains transfusion dependent. I spoke with him and his his about seeking an opinion downtown with our Leukemia group as well as Hospice. It was a tearfu meeting as lissette is significantly younger than Lloyd. Updated Visit, February 11, 2022: Patient received 2 units of PRBC on 02/05/22 for hgb of 6.8. Saw cardiology today no changes. Denies any fevers, chill, nausea or vomiting. Overall, other than his normal fatigue, he feels well. Updated Visit, January 14, 2022: Lloyd in good spirit returns to continue treatments for MDS. I think we are making some progress as we haven't had to transfuse him in 4 weeks. WBC counts always start low at the beginning of each cycle but after D5, improve significantly. Hasn't been transfused for 4 weeks - anticipate need this week. Using BiPap and can sleep in bed now. Updated Visit, December 17, 2021: Lloyd is 81 years old and returns with his Lissette in follow-up. He feels much better having had several units transfused and now has a hemoglobin of 10.2. We revisited the discussion of pursuing treatment versus hospice and he is still indeterminant. We discussed pursuing a few more cycles and then reconsidering at that time. He does have some evidence of improvement with improving white blood cell count as well as platelet count improvement. He feels really good following his transfusion and wishes to proceed. Updated Visit, November 29, 2021: Lloyd returns unfortunately had Afib and heart failure with AMI and significant MV regurg. Fatigued. Will consider Hospice. Hold treatment for now and reconsider in 3-4 weeks. Also recovering from pneumonia. Reviewed outside records. Updated Visit, October 25, 2021: Sandip Broussard returns for scheduled follow up. He states that he is feeling slow . He has shortness of breath all the time. He denies any dizziness. He denies any abnormal blood loss. Updated Visit, October 01, 2021: Lloyd is 80 years old and returns with his Lissette for treatment with low-dose Vidaza. He appears to be having some response with improving platelet counts. His only complaints are that of increased abdominal gas. He is otherwise doing well. Continue Retacrit and treatment as recommended. He is safe to proceed. Sees ENT next week No more nose bleeds after stopping Eliquis. Updated Visit, September 17, 2021: Sandip Broussard returns for scheduled follow-up. Since his last visit there has been no significant medical changes. He denies bleeding and abnormal bruising. He denies fevers, chills, night sweats and signs/symptoms of infection. Overall, he feels fairly well. Updated Visit, September 03, 2021: BP improved. Labs stable and platelets have recovered. Was transfused last week and feels better. Neutropenia is disease related and we will continue with treatment. Continue retacrit as Ordered. Transfuse periodically. Updated Visit, August 24, 2021: Lloyd returns today prior to Retacrit during his 2 weeks following Vidaza. Has been having some pain at the base of his skull and is having some dizziness. BP is low - stop Norvasc and Hytrin, and hold Aldactone for now. It is their anniversary today - 49th! Updated Visit, August 06, 2021: Lloyd returns today for follow up and cycle 2 of vidaza. Feeling well. Ran out of his diuretic for a week and had some JANG. Was able to get his medications refilled and is feeling better now. No swelling, chest pain, dizziness, fever, chills or other concerning symptoms. Updated Visit, July 19, 2021: Sandip Broussard returns for follow-up. He received his first cycle of Vidaza 07/09/2021 through 07/13/2021. Overall, he tolerated treatment well without any side effects. He is doing well today and offers no new particular complaints. Updated Visit, July 09, 2021: Hasn't required transfusion since 06/2020. Still profoundly anemic despite adequate dosing of aranesp for CKD. Will proceed with low dose Vidaza. Reviewed plan and goals again. Updated Visit, May 31, 2021: EPO was increased to 80,000 units about 2 weeks ago. Feels the same. reports he still spends most of his day on the couch napping. Patient denies any bleeding. Does have diarrhea, which he has had for over 3 months. 2 loose stools a day. Afraid to go places because of the urgency a/w it. Patient denies bleeding. Does not want to see GI at this time. Has not taken anything for it. No new medications. Updated Visit, May 02, 2021: Lloyd returns with his Lissette and reports that he can't exert himself too much but can get out to the barn and doesn't get dizzy anymore. Still not responding as robustly to increased EPO, so will increase to 80k every 2 weeks. Updated Visit, March 07, 2021: Lloyd returns with his Lissette and was seen by Dr. Wade approximately 1 week ago from ENT. Patient was a little bit confused on instructions given and so I reviewed the recommendations and clarified for Lloyd exactly what his regimen should be. This includes stopping Eliquis as well as aspirin. He appears to be stable from a laboratory perspective but continues to have low platelets and generalized pancytopenia. We discussed again, the goal of his treatment and interventions to be palliative as he requested. He feels well today. Updated Visit, February 21, 2021: Nose bleed Friday- ER plugged it up but then went back on Friday hospitalized until this morning Still seeping blood. Operated on nose- surgery w/ Dr. Marshall Last fall in [place]. Has tranexamic acid at home. Requesting ENT referral at [facility]. He is dehydrated and not keeping up with fluids. Partition Setter is elevated exacerbating cause was likely letting his CPAP reservoir go dry. Ferritin is coming down. Updated Visit, January 10, 2021: Lloyd is here for follow up. After review of his chart, he has stage IV ckd and presented with pancytopenia, including significant anemia requiring transfusion due to GI bleeding and nose bleeds. 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 He has received IV iron in the past along with retacrit, which he is currently receiving every other week. Current goal is quality of life with the least amount visits. He did just have a nose bleed on Friday, and it didn't last long. He made his own plug and kept it in his nose for 24 hours and no additional bleeding. He is taking his eliquis one pill daily, but he held it the last two days due to the nose bleed. He is not on aspirin. Overall he feels well and offers no complaints of significant fatigue, shortness of breath, cough, fever, chills or signs of infections. Updated Visit, November 15, 2020: Sandip Broussard returns for follow-up. He remains on Retacrit 40,000 units every 2 weeks and is tolerating it well. Recently he has noticed pain in the back of his neck. He experienced this same pain when his hemoglobin was low in the past. He states that he takes Tylenol with improvement in the pain. He denies any signs of bleeding. He states that his bruising is better. He is still taking the Eliquis daily at the recommendation of his fashion model. Since stopping the aspirin he has not had any further nosebleeds. He denies fevers, chills, night sweats and signs/symptoms of infection. He has persistent exertional shortness of breath. Updated Visit, September 20, 2020: Lloyd is 79 and returns with his Lissette for discussion on his overall condition as well as his rec to have watchman for A-fib. However, our discussion reveals that he really doesn't want to do anything and that he also doesn't want to take full dose anticoagulation. I pressed him and verified that his goals were to focus on quality of life and get minimally involved in medical procedures. We will continue to monitor his counts and transfuse or give iron and retacrit as necessary, but minimize his follow ups. Updated Visit, August 23, 2020: Lloyd is 79 years old and returns with his Lissette today for multifactorial anemia. His GI bleed was finally found and addressed. They brought in a cake to share in their celebration of their anniversary and Nicki's birthday. He reports that he is no longer lightheaded. Still some fatigue. Now will need Aranesp replacement and iron x 1. He may need low dose dacogen in the future if he is unresponsive. Updated visit, July 26, 2020: Lloyd is 79 years old and returns with his Lissette today having had a capsule endoscopy which was positive for GI bleed. This was stopped and he is now recovering from his blood loss anemia. We will continue supporting him with IV iron as needed but for now we will hold off he will continue need B12 and folic acid. He still has underlying myelodysplasia and stage IV chronic kidney disease which is contributing to his anemia but Corine is not bleeding any longer. Updated Visit, July 03, 2020: Lloyd is 79 years old and returns with his Lissette again requiring additional transfusions because of significantly low hemoglobin. I reviewed his bone marrow biopsy with him which is consistent with myelodysplastic syndrome but he has ongoing melena that is highly suspicious for a GI bleed. To date his endoscopic work-up has been negative but he is due to have a capsule endoscopy that hopefully will reveal the cause of his cytopenias. He feels weak and is in a wheelchair today. Updated Visit, June 15, 2020: Conducted by telephone. Sandip Broussard is a 79 year old male seen for pancytopenia recently having had bone marrow biopsy that is most consistent with. 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 Hopefully his iron deficiency can be corrected and perhaps any evidence of GI bleeding can be attenuated. He sees gastroenterology next week. He may need transfusion support before the weekend even though he was just transfused his 17th unit 2 days ago. I reviewed his bone marrow biopsy results with him and his Lissette in some detail. His erythropoietin level is markedly elevated indicating that supplementation would not help and that his renal failure is not contributing to his anemia. Initial Visit, May 29, 2020: Sandip Broussard presents today Hematology and Oncology evaluation. He is a 79 year old male who is accompanied by his Lissette on urgent referral from Dr. Flash Pearl for pancytopenia, hemoglobin of 5 with both recent EGD and colonoscopy demonstrating no evidence of active bleeding but slight chronic gastritis. He also had several epistaxes as blood to the point of requiring transfusions causing lightheadedness and unsteadiness. Patient states he has had black stools since July 2019. So far extensive work-up has been unrevealing. He has had recent hospitalization and was released on 05/26/2020. Full work-up at that time revealed an adequate erythropoietin response despite elevated creatinine and stage III chronic kidney disease. However his white blood cell count remains suppressed as does his platelet count of less than 100,000. Indeed, his epistaxis may be the cause of his melanotic stools but warrants another look and additionally he will need a bone marrow biopsy. His coags are normal. His red blood cell indices only indicate hypochromasia and macrocytosis. Patient had a bleeding scan that was negative as well. REVIEW OF SYSTEMS Per HPI and otherwise negative by full review of organ systems. ECOG PERFORMANCE STATUS: 2 PHYSICAL EXAMINATION: Vitals: BP 108/57 Pulse 67 Temp (Src) 97.1 (Temporal) Resp 18 Ht 5' 5.394 (1.66m) Wt 232 lb (105.2kg) SpO2 96[O2 @ 2L]% BMI 38.14 kg/(m^2). Body surface area is 2.2 meters squared. General: Alert and oriented, no distress, pleasant and cooperative. In wheelchair Heart: Regular, normal S1 and S2, no murmurs, rubs, or gallops Lungs: On O2 Extremities: Feet/ankles without edema, posterior tibial pulses full and symmetrical; as described in HPI today. ALLERGIES: ALLERGIES Allergen Reactions Bee Stings [Other] large hives, swelling at site Coreg [Carvedilol] Hives MEDICATIONS: ondansetron (ZOFRAN) 8 mg tablet Take 1 tablet by mouth every 8 hours as needed for nausea/vomiting. prochlorperazine (COMPAZINE) 10 mg tablet Take 1 tablet by mouth every 6 hours as needed. bumetanide (BUMEX) 2 mg tablet Take 2 mg by mouth every evening. omeprazole (PRILOSEC) 40 mg capsule Take 40 mg by mouth once daily. bumetanide (BUMEX) 1 mg tablet Take 1 mg by mouth every morning. potassium chloride SR (MICRO-K) 10 mEq CR capsule Take 10 mEq by mouth once daily. ciprofloxacin HCl (CIPRO) 500 mg tablet Take 500 mg by mouth once daily. FARXIGA 10 mg tablet Take 10 mg by mouth daily with breakfast. metoprolol succinate ER (TOPROL XL) 25 mg 24 hr tablet Take 25 mg by mouth once daily. spironolactone (ALDACTONE) 25 mg tablet Take 25 mg by mouth once daily. aspirin 81 mg chewable tablet CHEW 1 TABLET BY MOUTH EVERY DAY terazosin (HYTRIN) 5 mg capsule Take 5 mg by mouth daily at bedtime. Omeprazole-Sodium Bicarbonate 40-1,680 mg pack Take by mouth. sucralfate (CARAFATE) 1 gram tablet Take 1 g by mouth four times daily. [facility] NASAL OINTMENT Apply to affected area twice daily. atorvastatin (LIPITOR) 20 mg tablet Take 1 tablet by mouth daily at bedtime. colchicine 0.6 mg tablet Take 0.6 mg by mouth as needed. As needed 1-2 times/week lisinopril (ZESTRIL, PRINIVIL) 10 mg tablet Take 1 tablet by mouth once daily. Please resume this medication after PCP follow up ONETOUCH DELICA PLUS LANCET 33 gauge glipiZIDE (GLUCOTROL) 5 mg tablet Take 5 mg by mouth once daily. ONETOUCH ULTRA BLUE TEST STRIP test strip cholecalciferol (VITAMIN D3) 1,000 unit tab tablet 1,000 Units once daily. Only taking 500 units LABORATORY VALUES: WBC (k/uL) Date Value 06/17/2022 1.64 (L) RBC (m/uL) Date Value 06/17/2022 2.62 (L) Hemoglobin (g/dL) Date Value 06/17/2022 8.4 (L) Hematocrit (%) Date Value 06/17/2022 26.1 (L) MCV (fL) Date Value 06/17/2022 99.6 MCH (pg) Date Value 06/17/2022 32.1 MCHC (g/dL) Date Value 06/17/2022 32.2 RDW-CV (%) Date Value 06/17/2022 19.8 (H) Platelet Count (k/uL) Date Value 06/17/2022 56 (L) MPV (fL) Date Value 06/17/2022 14.0 (H) Glucose (mg/dL) Date Value 06/17/2022 141 (H) BUN (mg/dL) Date Value 06/17/2022 24 Creatinine (mg/dL) Date Value 06/17/2022 1.52 (H) Sodium (mmol/L) Date Value 06/17/2022 142 Potassium (mmol/L) Date Value 06/17/2022 3.9 Chloride (mmol/L) Date Value 06/17/2022 103 CO2 (mmol/L) Date Value 06/17/2022 31 (H) Protein, Total (g/dL) Date Value 06/17/2022 6.3 Albumin (g/dL) Date Value 06/17/2022 4.0 Calcium, Total (mg/dL) Date Value 06/17/2022 8.9 Alkaline Phosphatase (U/L) Date Value 06/17/2022 108 Bilirubin, Total (mg/dL) Date Value 06/17/2022 0.9 AST (U/L) Date Value 06/17/2022 22 ALT (U/L) Date Value 06/17/2022 42 Cholesterol, Total (mg/dL) Date Value 06/27/2005 153 Triglyceride (mg/dL) Date Value 06/27/2005 144 DIAGNOSIS: (D46.9) Myelodysplastic syndrome (HCC) (primary encounter diagnosis) (E83.111) 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 transfusions (N18.4) CRF (chronic renal failure), stage 4 (severe) (HCC) (N18.4) CKD (chronic kidney disease) stage 4, GFR 15-29 ml/min (HCC) PAST MEDICAL HISTORY Diagnosis Date Anemia Anemia of chronic renal failure, stage 4 (severe) (HCC) 08/23/2020 Atrial fibrillation (HCC) Chronic kidney disease CRF (chronic renal failure), stage 4 (severe) (HCC) 08/23/2020 Diabetes mellitus (HCC) GI bleed Hypertension 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 loss 06/15/2020 Leukopenia Sleep apnea Thrombocytopenia (HCC) PAST SURGICAL HISTORY Procedure Laterality Date COLONOSCOPY Social History Tobacco Use Smoking status: Former Types: Pipe Quit date: 1995 Years since quittin.9 Passive exposure: Past Smokeless tobacco: Never Vaping Use Vaping Use: Never used Substance Use Topics Alcohol use: Not Currently Drug use: Not Currently I spent a total of 30 minutes on the date of the service which included preparing to see the patient, [id number] patient care, completing clinical documentation, performing a medically appropriate examination, counseling and educating the patient/family/caregiver, ordering medications, tests, or procedures, and independently interpreting results (not separately reported). Asher Hummel MD, CPE Hematology and Oncology Services Provided at: [place], [place] CC: Dr. Flash Gomez (Cardiology [facility] [place]) MD Elysia Merlos MD documented in this encounter [facility] 06-10-2022 Note [facility] 06-10-2022 History of Present illness Narrative NAME: Sandip Broussard [facility] NO.: [id number] DATE OF SERVICE: June 10, 2022 (Radha Sandoval PA-C ) Some elements in this clinic note that are critical to medical decision making have been carefully reviewed and included from a prior clinic note dated: June 03, 2022 (Estephanie) Referring Provider: Dr. Flash Pearl Additional Clinicians involved in Sandip Broussard's care: Dr. José Luis Velasquez, Dr. Oumou Wade CC: Follow up ASSESSMENT: 81 year old year old man with MDS, stage 4 chronic kidney disease and iron deficiency anemia d/t GI blood loss (seen on capsule endoscopy) and epistaxis. Was receiving high dose EPO every 2 weeks with periodic iron infusions. With persisting cytopenia we started him on Vidaza low dose to see if we could positively impact his pancytopenia and reduce his fatigue as well as his Epo usage. Unfortunately he suffered an acute [place] 11/23/2021 and also developed another GI bleed. He was transfused, and medically managed after catheterization. 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 He was requiring transfusion of PRBCs every 3-4 weeks.and there was question of if he was responding to Vidaza. He was seen by Dr. 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 NGS Heme: TET2 p.?, [id number], c.4182+1G>A VAF: 44.5% TET2 p.[id number], [id number], c.5618T>C VAF: 40% ZRSR2 p.R30Vfs*8, [id number], c.88delC VAF: 91.1% And the following variant(s) of uncertain significance: BCORL1 p.R72W [id number]: c.214C>T VAF: 100% At this time he continues on low dose weekly decitabine x 2 days (Mondays and Tuesdays) His hgb is 7.3 and we will transfuse 2 units of PRBCs (goal is hgb >8.5) Continue Retacrit today and weekly for Hgb < 12 Continue with weekly labs RTC in 1 week for labs and continuation of treatment Superficial wound left deltoid, educated on signs of infection. Will avoid area of injections. TREATMENT TO DATE: 4. 05/20/2022 - Low dose Decitabine weekly 3. 07/09/2021 - 04/08/2022: Vidaza D1-5 q 28. 2. Retacrit 80,000 units every week 1. Intermittent IV Iron HPI: Updated Visit, June 10, 2022: On antibiotic, cefuroxime 500mg BID for ear infection per dr pearl since 05/29/2022, Rafael hartmann. He stopped it early, but his ear started bothering him again so he restarted it. Denies any fevers, chills. Does have an open area on his left deltoid following his dacogen injection from 06/04/22. No drainage. Still with dyspnea and dizziness. Updated Visit, June 03, 2022: Don is in a wheelchair today and reports getting light headed and dyspneic with standing and light activity. Hgb 6.5 today and will need transfusions this week with recheck on Friday. Continue current plan for low dose Decitabine. Will watch platelet counts and monitor neutropenia. Updated Visit, May 20, 2022: Lloyd returns with his Nicki. He was transfused 2 weeks ago. Presents to start dacogen today. Feels weak today and will need transfusion support. Education and consent done and obtained today. Updated Visit, May 06, 2022: Reviewed bone marrow results and labs with them. Will discuss with my colleague Dr. Esposito with respect to starting Dacogen. 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 Will need retacrit today and weekly as well as PRBC transfusion Updated Visit, April 29, 2022: Lloyd returns and has ongoing cytopenias. Awaiting bone marrow biopsy results. Will continue retacrit weekly. No need for transfusion today. Updated Visit, April 22, 2022: Patient saw Dr. Esposito (recommendations are above). Feels about the same. Hgb today is 7.5 Bone marrow scheduled for 04/25/22 Updated Visit, April 08, 2022: Hgb 8.1 today after transfusion 5 days ago. Due to See Dr. Esposito next 04/18/2022 Will cancel Vidaza for now. Continue aranesp Maintain transfusion support. Updated Visit, March 11, 2022: Unfortunately Lloyd is not maintaining any response to single agent Vidaza and remains transfusion dependent. I spoke with him and his his about seeking an opinion downtown with our Leukemia group as well as Hospice. It was a tearfu meeting as lissette is significantly younger than Lloyd. Updated Visit, February 11, 2022: Patient received 2 units of PRBC on 02/05/22 for hgb of 6.8. Saw cardiology today no changes. Denies any fevers, chill, nausea or vomiting. Overall, other than his normal fatigue, he feels well. Updated Visit, January 14, 2022: Lloyd in good spirit returns to continue treatments for MDS. I think we are making some progress as we haven't had to transfuse him in 4 weeks. WBC counts always start low at the beginning of each cycle but after D5, improve significantly. Hasn't been transfused for 4 weeks - anticipate need this week. Using BiPap and can sleep in bed now. Updated Visit, December 17, 2021: Lloyd is 81 years old and returns with his Lissette in follow-up. He feels much better having had several units transfused and now has a hemoglobin of 10.2. We revisited the discussion of pursuing treatment versus hospice and he is still indeterminant. We discussed pursuing a few more cycles and then reconsidering at that time. He does have some evidence of improvement with improving white blood cell count as well as platelet count improvement. He feels really good following his transfusion and wishes to proceed. Updated Visit, November 29, 2021: Lloyd returns unfortunately had Afib and heart failure with AMI and significant MV regurg. Fatigued. Will consider Hospice. Hold treatment for now and reconsider in 3-4 weeks. Also recovering from pneumonia. Reviewed outside records. Updated Visit, October 25, 2021: Sandip Broussard returns for scheduled follow up. He states that he is feeling slow . He has shortness of breath all the time. He denies any dizziness. He denies any abnormal blood loss. Updated Visit, October 01, 2021: Lloyd is 80 years old and returns with his Lissette for treatment with low-dose Vidaza. He appears to be having some response with improving platelet counts. His only complaints are that of increased abdominal gas. He is otherwise doing well. Continue Retacrit and treatment as recommended. He is safe to proceed. Sees ENT next week No more nose bleeds after stopping Eliquis. Updated Visit, September 17, 2021: Sandip Broussard returns for scheduled follow-up. Since his last visit there has been no significant medical changes. He denies bleeding and abnormal bruising. He denies fevers, chills, night sweats and signs/symptoms of infection. Overall, he feels fairly well. Updated Visit, September 03, 2021: BP improved. Labs stable and platelets have recovered. Was transfused last week and feels better. Neutropenia is disease related and we will continue with treatment. Continue retacrit as Ordered. Transfuse periodically. Updated Visit, August 24, 2021: Lloyd returns today prior to Retacrit during his 2 weeks following Vidaza. Has been having some pain at the base of his skull and is having some dizziness. BP is low - stop Norvasc and Hytrin, and hold Aldactone for now. It is their anniversary today - 49th! Updated Visit, August 06, 2021: Lloyd returns today for follow up and cycle 2 of vidaza. Feeling well. Ran out of his diuretic for a week and had some JANG. Was able to get his medications refilled and is feeling better now. No swelling, chest pain, dizziness, fever, chills or other concerning symptoms. Updated Visit, July 19, 2021: Sandip Broussard returns for follow-up. He received his first cycle of Vidaza 07/09/2021 through 07/13/2021. Overall, he tolerated treatment well without any side effects. He is doing well today and offers no new particular complaints. Updated Visit, July 09, 2021: Hasn't required transfusion since 06/2020. Still profoundly anemic despite adequate dosing of aranesp for CKD. Will proceed with low dose Vidaza. Reviewed plan and goals again. Updated Visit, May 31, 2021: EPO was increased to 80,000 units about 2 weeks ago. Feels the same. reports he still spends most of his day on the couch napping. Patient denies any bleeding. Does have diarrhea, which he has had for over 3 months. 2 loose stools a day. Afraid to go places because of the urgency a/w it. Patient denies bleeding. Does not want to see GI at this time. Has not taken anything for it. No new medications. Updated Visit, May 02, 2021: Lloyd returns with his Lissette and reports that he can't exert himself too much but can get out to the barn and doesn't get dizzy anymore. Still not responding as robustly to increased EPO, so will increase to 80k every 2 weeks. Updated Visit, March 07, 2021: Lloyd returns with his Lissette and was seen by Dr. Wade approximately 1 week ago from ENT. Patient was a little bit confused on instructions given and so I reviewed the recommendations and clarified for Lloyd exactly what his regimen should be. This includes stopping Eliquis as well as aspirin. He appears to be stable from a laboratory perspective but continues to have low platelets and generalized pancytopenia. We discussed again, the goal of his treatment and interventions to be palliative as he requested. He feels well today. Updated Visit, February 21, 2021: Nose bleed Friday- ER plugged it up but then went back on Friday hospitalized until this morning Still seeping blood. Operated on nose- surgery w/ Dr. Marshall Last fall in [place]. Has tranexamic acid at home. Requesting ENT referral at [facility]. He is dehydrated and not keeping up with fluids. Partition Setter is elevated exacerbating cause was likely letting his CPAP reservoir go dry. Ferritin is coming down. Updated Visit, January 10, 2021: Lloyd is here for follow up. After review of his chart, he has stage IV ckd and presented with pancytopenia, including significant anemia requiring transfusion due to GI bleeding and nose bleeds. 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 He has received IV iron in the past along with retacrit, which he is currently receiving every other week. Current goal is quality of life with the least amount visits. He did just have a nose bleed on Friday, and it didn't last long. He made his own plug and kept it in his nose for 24 hours and no additional bleeding. He is taking his eliquis one pill daily, but he held it the last two days due to the nose bleed. He is not on aspirin. Overall he feels well and offers no complaints of significant fatigue, shortness of breath, cough, fever, chills or signs of infections. Updated Visit, November 15, 2020: Sandip Broussard returns for follow-up. He remains on Retacrit 40,000 units every 2 weeks and is tolerating it well. Recently he has noticed pain in the back of his neck. He experienced this same pain when his hemoglobin was low in the past. He states that he takes Tylenol with improvement in the pain. He denies any signs of bleeding. He states that his bruising is better. He is still taking the Eliquis daily at the recommendation of his fashion model. Since stopping the aspirin he has not had any further nosebleeds. He denies fevers, chills, night sweats and signs/symptoms of infection. He has persistent exertional shortness of breath. Updated Visit, September 20, 2020: Lloyd is 79 and returns with his Lissette for discussion on his overall condition as well as his rec to have watchman for A-fib. However, our discussion reveals that he really doesn't want to do anything and that he also doesn't want to take full dose anticoagulation. I pressed him and verified that his goals were to focus on quality of life and get minimally involved in medical procedures. We will continue to monitor his counts and transfuse or give iron and retacrit as necessary, but minimize his follow ups. Updated Visit, August 23, 2020: Lloyd is 79 years old and returns with his Lissette today for multifactorial anemia. His GI bleed was finally found and addressed. They brought in a cake to share in their celebration of their anniversary and Nicki's birthday. He reports that he is no longer lightheaded. Still some fatigue. Now will need Aranesp replacement and iron x 1. He may need low dose dacogen in the future if he is unresponsive. Updated visit, July 26, 2020: Lloyd is 79 years old and returns with his Lissette today having had a capsule endoscopy which was positive for GI bleed. This was stopped and he is now recovering from his blood loss anemia. We will continue supporting him with IV iron as needed but for now we will hold off he will continue need B12 and folic acid. He still has underlying myelodysplasia and stage IV chronic kidney disease which is contributing to his anemia but Corine is not bleeding any longer. Updated Visit, July 03, 2020: Lloyd is 79 years old and returns with his Lissette again requiring additional transfusions because of significantly low hemoglobin. I reviewed his bone marrow biopsy with him which is consistent with myelodysplastic syndrome but he has ongoing melena that is highly suspicious for a GI bleed. To date his endoscopic work-up has been negative but he is due to have a capsule endoscopy that hopefully will reveal the cause of his cytopenias. He feels weak and is in a wheelchair today. Updated Visit, June 15, 2020: Conducted by telephone. Sandip Broussard is a 79 year old male seen for pancytopenia recently having had bone marrow biopsy that is most consistent with. 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 Hopefully his iron deficiency can be corrected and perhaps any evidence of GI bleeding can be attenuated. He sees gastroenterology next week. He may need transfusion support before the weekend even though he was just transfused his 17th unit 2 days ago. I reviewed his bone marrow biopsy results with him and his Lissette in some detail. His erythropoietin level is markedly elevated indicating that supplementation would not help and that his renal failure is not contributing to his anemia. Initial Visit, May 29, 2020: Sandip Broussard presents today Hematology and Oncology evaluation. He is a 79 year old male who is accompanied by his Lissette on urgent referral from Dr. Flash Pearl for pancytopenia, hemoglobin of 5 with both recent EGD and colonoscopy demonstrating no evidence of active bleeding but slight chronic gastritis. He also had several epistaxes as blood to the point of requiring transfusions causing lightheadedness and unsteadiness. Patient states he has had black stools since July 2019. So far extensive work-up has been unrevealing. He has had recent hospitalization and was released on 05/26/2020. Full work-up at that time revealed an adequate erythropoietin response despite elevated creatinine and stage III chronic kidney disease. However his white blood cell count remains suppressed as does his platelet count of less than 100,000. Indeed, his epistaxis may be the cause of his melanotic stools but warrants another look and additionally he will need a bone marrow biopsy. His coags are normal. His red blood cell indices only indicate hypochromasia and macrocytosis. Patient had a bleeding scan that was negative as well. REVIEW OF SYSTEMS Per HPI and otherwise negative by full review of organ systems. ECOG PERFORMANCE STATUS: 2 PHYSICAL EXAMINATION: Vitals: BP 111/49 Pulse 78 Temp (Src) 97.3 (Temporal) Resp 20 Ht 5' 5.394 (1.66m) Wt 232 lb 9.6 oz (105.5kg) SpO2 94[O2 @ 2L]% BMI 38.24 kg/(m^2). Body surface area is 2.21 meters squared. General: Alert and oriented, no distress, pleasant and cooperative. In wheelchair Heart: Regular, normal S1 and S2, no murmurs, rubs, or gallops Lungs: On O2 Extremities: Feet/ankles without edema, posterior tibial pulses full and symmetrical; left deltoid with dime size open superficial area with some edema, no surrounding redness or warmth ALLERGIES: ALLERGIES Allergen Reactions Bee Stings [Other] large hives, swelling at site Coreg [Carvedilol] Hives MEDICATIONS: ondansetron (ZOFRAN) 8 mg tablet Take 1 tablet by mouth every 8 hours as needed for nausea/vomiting. prochlorperazine (COMPAZINE) 10 mg tablet Take 1 tablet by mouth every 6 hours as needed. bumetanide (BUMEX) 2 mg tablet Take 2 mg by mouth every evening. omeprazole (PRILOSEC) 40 mg capsule Take 40 mg by mouth once daily. bumetanide (BUMEX) 1 mg tablet Take 1 mg by mouth every morning. potassium chloride SR (MICRO-K) 10 mEq CR capsule Take 10 mEq by mouth once daily. ciprofloxacin HCl (CIPRO) 500 mg tablet Take 500 mg by mouth once daily. FARXIGA 10 mg tablet Take 10 mg by mouth daily with breakfast. metoprolol succinate ER (TOPROL XL) 25 mg 24 hr tablet Take 25 mg by mouth once daily. spironolactone (ALDACTONE) 25 mg tablet Take 25 mg by mouth once daily. aspirin 81 mg chewable tablet CHEW 1 TABLET BY MOUTH EVERY DAY terazosin (HYTRIN) 5 mg capsule Take 5 mg by mouth daily at bedtime. Omeprazole-Sodium Bicarbonate 40-1,680 mg pack Take by mouth. sucralfate (CARAFATE) 1 gram tablet Take 1 g by mouth four times daily. [facility] NASAL OINTMENT Apply to affected area twice daily. atorvastatin (LIPITOR) 20 mg tablet Take 1 tablet by mouth daily at bedtime. colchicine 0.6 mg tablet Take 0.6 mg by mouth as needed. As needed 1-2 times/week lisinopril (ZESTRIL, PRINIVIL) 10 mg tablet Take 1 tablet by mouth once daily. Please resume this medication after PCP follow up ONETOUCH DELICA PLUS LANCET 33 gauge glipiZIDE (GLUCOTROL) 5 mg tablet Take 5 mg by mouth once daily. ONETOUCH ULTRA BLUE TEST STRIP test strip cholecalciferol (VITAMIN D3) 1,000 unit tab tablet 1,000 Units once daily. Only taking 500 units LABORATORY VALUES: WBC (k/uL) Date Value 06/10/2022 1.16 (L) RBC (m/uL) Date Value 06/10/2022 2.25 (L) Hemoglobin (g/dL) Date Value 06/10/2022 7.3 (L) Hematocrit (%) Date Value 06/10/2022 22.8 (L) MCV (fL) Date Value 06/10/2022 101.3 (H) MCH (pg) Date Value 06/10/2022 32.4 MCHC (g/dL) Date Value 06/10/2022 32.0 RDW-CV (%) Date Value 06/10/2022 21.2 (H) Platelet Count (k/uL) Date Value 06/10/2022 40 (L) MPV (fL) Date Value 05/13/2022 13.0 (H) Glucose (mg/dL) Date Value 06/10/2022 139 (H) BUN (mg/dL) Date Value 06/10/2022 27 (H) Creatinine (mg/dL) Date Value 06/10/2022 1.60 (H) Sodium (mmol/L) Date Value 06/10/2022 142 Potassium (mmol/L) Date Value 06/10/2022 3.8 Chloride (mmol/L) Date Value 06/10/2022 104 CO2 (mmol/L) Date Value 06/10/2022 30 Protein, Total (g/dL) Date Value 06/10/2022 6.4 Albumin (g/dL) Date Value 06/10/2022 4.0 Calcium, Total (mg/dL) Date Value 06/10/2022 9.0 Alkaline Phosphatase (U/L) Date Value 06/10/2022 108 Bilirubin, Total (mg/dL) Date Value 06/10/2022 1.1 AST (U/L) Date Value 06/10/2022 18 ALT (U/L) Date Value 06/10/2022 40 Cholesterol, Total (mg/dL) Date Value 06/27/2005 153 Triglyceride (mg/dL) Date Value 06/27/2005 144 DIAGNOSIS: No diagnosis found. PAST MEDICAL HISTORY Diagnosis Date Anemia Anemia of chronic renal failure, stage 4 (severe) (HCC) 08/23/2020 Atrial fibrillation (HCC) Chronic kidney disease CRF (chronic renal failure), stage 4 (severe) (HCC) 08/23/2020 Diabetes mellitus (HCC) GI bleed Hypertension 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 loss 06/15/2020 Leukopenia Sleep apnea Thrombocytopenia (HCC) PAST SURGICAL HISTORY Procedure Laterality Date COLONOSCOPY Social History Tobacco Use Smoking status: Former Types: Pipe Quit date: 1994 Years since quittin.8 Passive exposure: Past Smokeless tobacco: Never Vaping Use Vaping Use: Never used Substance Use Topics Alcohol use: Not Currently Drug use: Not Currently Radha Sandoval PA-C CC: Dr. Flash Gomez (Cardiology [facility] [place]) MD Elysia Merlos MD documented in this encounter [facility] 06-10-2022 Nurse Note Clinical questionnaires incomplete due to Nurse was Interrupted by provider during rooming process QNR not working. Showing an error. Ksenia Mohan documented in this encounter [facility] 06-07-2022 Miscellaneous Notes Per pt's chart, he is scheduled to receive 2 units RBC's at [facility] today. Angle Kamara RN Wade from [facility] lab called with critical results on patient. HBG 7.7 HCT 23.0(critical result) Jozef Mohan RN documented in this encounter [facility] 06-03-2022 Note [facility] 06-03-2022 Miscellaneous Notes 2 units packed RBC's at [facility] on Fri06-05-22 9am. Lab on Friday before noon. Order and cbc were faxed to [facility] documented in this encounter [facility] 06-03-2022 Instructions Asher Hummel MD - 06/03/2022 1:55 PM EST Continue low dose decitabine weekly x 2 days (Fri, Fri) Retacrit today and weekly for Hgb < 12 Transfuse 2 unit PRBCs for Hgb < 8.5 (this week on Friday @ [facility] please) Labs again once / week here Recheck H/H this Friday at [facility] and transfuse again if Hgb < 8.5 RTC in 1 weeks - with labs - see Wilfred documented in this encounter [facility] 06-03-2022 History of Present illness Narrative Images from the original note were not included. NAME: Sandip Broussard CLINIC NO.: [id number] DATE OF SERVICE: June 03, 2022 (shayy) Some elements in this clinic note that are critical to medical decision making have been carefully reviewed and included from a prior clinic note dated: May 20, 2022 (Estephanie) Referring Provider: Dr. Flash Pearl Additional Clinicians involved in Sandip Broussard's care: Dr. José Luis Velasquez, Dr. Oumou Wade CC: Follow up ASSESSMENT: 81 year old year old man with MDS, stage 4 chronic kidney disease and iron deficiency anemia d/t GI blood loss (seen on capsule endoscopy) and epistaxis. Was receiving high dose EPO every 2 weeks with periodic iron infusions. With persisting cytopenia we started him on Vidaza low dose to see if we could positively impact his pancytopenia and reduce his fatigue as well as his Epo usage. Unfortunately he suffered an acute [place] 11/23/2021 and also developed another GI bleed. He was transfused, and medically managed after catheterization. 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 He has been requiring transfusion of PRBCs every 3-4 weeks. At this time there is question if he is responding to vidaza. He was seen by Dr. Esposito (her input is much appreciated) who recommended increasing his reticrit to weekly, which he will receive today, attempt to transfuse to keep his hgb >8 due to his CHF history, and proceed with repeat bone marrow biopsy (scheduled for 04/25/22), and get hematologic NGS on him. PLAN: Continue low dose decitabine weekly x 2 days (Mon, Tu) Retacrit today and weekly for Hgb < 12 Transfuse 2 unit PRBCs for Hgb < 8.5 (this week on Friday @ [facility] please) Labs again once / week here Recheck H/H this Friday at [facility] and transfuse again if Hgb < 8.5 RTC in 1 weeks - with labs - see Wilfred TREATMENT TO DATE: 4. 05/20/2022 - Low dose Decitabine weekly 3. 07/09/2021 - 04/08/2022: Vidaza D1-5 q 28. 2. Retacrit 80,000 units every other week 1. Intermittent IV Iron HPI: Updated Visit, June 03, 2022: Lloyd is in a wheelchair today and reports getting light headed and dyspneic with standing and light activity. Hgb 6.5 today and will need transfusions this week with recheck on Friday. Continue current plan for low dose Decitabine. Will watch platelet counts and monitor neutropenia. Updated Visit, May 20, 2022: Lloyd returns with his Nicki. He was transfused 2 weeks ago. Presents to start dacogen today. Feels weak today and will need transfusion support. Education and consent done and obtained today. Updated Visit, May 06, 2022: Reviewed bone marrow results and labs with them. Will discuss with my colleague Dr. Esposito with respect to starting Dacogen. 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 Will need retacrit today and weekly as well as PRBC transfusion Updated Visit, April 29, 2022: Lloyd returns and has ongoing cytopenias. Awaiting bone marrow biopsy results. Will continue retacrit weekly. No need for transfusion today. Updated Visit, April 22, 2022: Patient saw Dr. Esposito (recommendations are above). Feels about the same. Hgb today is 7.5 Bone marrow scheduled for 04/25/22 Updated Visit, April 08, 2022: Hgb 8.1 today after transfusion 5 days ago. Due to See Dr. Esposito next 04/18/2022 Will cancel Vidaza for now. Continue aranesp Maintain transfusion support. Updated Visit, March 11, 2022: Unfortunately Lloyd is not maintaining any response to single agent Vidaza and remains transfusion dependent. I spoke with him and his his about seeking an opinion downtown with our Leukemia group as well as Hospice. It was a tearfu meeting as lissette is significantly younger than Lloyd. Updated Visit, February 11, 2022: Patient received 2 units of PRBC on 02/05/22 for hgb of 6.8. Saw cardiology today no changes. Denies any fevers, chill, nausea or vomiting. Overall, other than his normal fatigue, he feels well. Updated Visit, January 14, 2022: Lloyd in good spirit returns to continue treatments for MDS. I think we are making some progress as we haven't had to transfuse him in 4 weeks. WBC counts always start low at the beginning of each cycle but after D5, improve significantly. Hasn't been transfused for 4 weeks - anticipate need this week. Using BiPap and can sleep in bed now. Updated Visit, December 17, 2021: Lloyd is 81 years old and returns with his Lissette in follow-up. He feels much better having had several units transfused and now has a hemoglobin of 10.2. We revisited the discussion of pursuing treatment versus hospice and he is still indeterminant. We discussed pursuing a few more cycles and then reconsidering at that time. He does have some evidence of improvement with improving white blood cell count as well as platelet count improvement. He feels really good following his transfusion and wishes to proceed. Updated Visit, November 29, 2021: Lloyd returns unfortunately had Afib and heart failure with AMI and significant MV regurg. Fatigued. Will consider Hospice. Hold treatment for now and reconsider in 3-4 weeks. Also recovering from pneumonia. Reviewed outside records. Updated Visit, October 25, 2021: Sandip Broussard returns for scheduled follow up. He states that he is feeling slow . He has shortness of breath all the time. He denies any dizziness. He denies any abnormal blood loss. Updated Visit, October 01, 2021: Lloyd is 80 years old and returns with his Lissette for treatment with low-dose Vidaza. He appears to be having some response with improving platelet counts. His only complaints are that of increased abdominal gas. He is otherwise doing well. Continue Retacrit and treatment as recommended. He is safe to proceed. Sees ENT next week No more nose bleeds after stopping Eliquis. Updated Visit, September 17, 2021: Sandip Broussard returns for scheduled follow-up. Since his last visit there has been no significant medical changes. He denies bleeding and abnormal bruising. He denies fevers, chills, night sweats and signs/symptoms of infection. Overall, he feels fairly well. Updated Visit, September 03, 2021: BP improved. Labs stable and platelets have recovered. Was transfused last week and feels better. Neutropenia is disease related and we will continue with treatment. Continue retacrit as Ordered. Transfuse periodically. Updated Visit, August 24, 2021: Lloyd returns today prior to Retacrit during his 2 weeks following Vidaza. Has been having some pain at the base of his skull and is having some dizziness. BP is low - stop Norvasc and Hytrin, and hold Aldactone for now. It is their anniversary today - 49th! Updated Visit, August 06, 2021: Lloyd returns today for follow up and cycle 2 of vidaza. Feeling well. Ran out of his diuretic for a week and had some JANG. Was able to get his medications refilled and is feeling better now. No swelling, chest pain, dizziness, fever, chills or other concerning symptoms. Updated Visit, July 19, 2021: Sandip Broussard returns for follow-up. He received his first cycle of Vidaza 07/09/2021 through 07/13/2021. Overall, he tolerated treatment well without any side effects. He is doing well today and offers no new particular complaints. Updated Visit, July 09, 2021: Hasn't required transfusion since 06/2020. Still profoundly anemic despite adequate dosing of aranesp for CKD. Will proceed with low dose Vidaza. Reviewed plan and goals again. Updated Visit, May 31, 2021: EPO was increased to 80,000 units about 2 weeks ago. Feels the same. reports he still spends most of his day on the couch napping. Patient denies any bleeding. Does have diarrhea, which he has had for over 3 months. 2 loose stools a day. Afraid to go places because of the urgency a/w it. Patient denies bleeding. Does not want to see GI at this time. Has not taken anything for it. No new medications. Updated Visit, May 02, 2021: Lloyd returns with his Lissette and reports that he can't exert himself too much but can get out to the barn and doesn't get dizzy anymore. Still not responding as robustly to increased EPO, so will increase to 80k every 2 weeks. Updated Visit, March 07, 2021: Lloyd returns with his Lissette and was seen by Dr. Wade approximately 1 week ago from ENT. Patient was a little bit confused on instructions given and so I reviewed the recommendations and clarified for Lloyd exactly what his regimen should be. This includes stopping Eliquis as well as aspirin. He appears to be stable from a laboratory perspective but continues to have low platelets and generalized pancytopenia. We discussed again, the goal of his treatment and interventions to be palliative as he requested. He feels well today. Updated Visit, February 21, 2021: Nose bleed Friday- ER plugged it up but then went back on Friday hospitalized until this morning Still seeping blood. Operated on nose- surgery w/ Dr. Marshall Last fall in [place]. Has tranexamic acid at home. Requesting ENT referral at [facility]. He is dehydrated and not keeping up with fluids. Partition Setter is elevated exacerbating cause was likely letting his CPAP reservoir go dry. Ferritin is coming down. Updated Visit, January 10, 2021: Lloyd is here for follow up. After review of his chart, he has stage IV ckd and presented with pancytopenia, including significant anemia requiring transfusion due to GI bleeding and nose bleeds. 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 He has received IV iron in the past along with retacrit, which he is currently receiving every other week. Current goal is quality of life with the least amount visits. He did just have a nose bleed on Friday, and it didn't last long. He made his own plug and kept it in his nose for 24 hours and no additional bleeding. He is taking his eliquis one pill daily, but he held it the last two days due to the nose bleed. He is not on aspirin. Overall he feels well and offers no complaints of significant fatigue, shortness of breath, cough, fever, chills or signs of infections. Updated Visit, November 15, 2020: Sandip Broussard returns for follow-up. He remains on Retacrit 40,000 units every 2 weeks and is tolerating it well. Recently he has noticed pain in the back of his neck. He experienced this same pain when his hemoglobin was low in the past. He states that he takes Tylenol with improvement in the pain. He denies any signs of bleeding. He states that his bruising is better. He is still taking the Eliquis daily at the recommendation of his fashion model. Since stopping the aspirin he has not had any further nosebleeds. He denies fevers, chills, night sweats and signs/symptoms of infection. He has persistent exertional shortness of breath. Updated Visit, September 20, 2020: Lloyd is 79 and returns with his Lissette for discussion on his overall condition as well as his rec to have watchman for A-fib. However, our discussion reveals that he really doesn't want to do anything and that he also doesn't want to take full dose anticoagulation. I pressed him and verified that his goals were to focus on quality of life and get minimally involved in medical procedures. We will continue to monitor his counts and transfuse or give iron and retacrit as necessary, but minimize his follow ups. Updated Visit, August 23, 2020: Lolyd is 79 years old and returns with his Lissette today for multifactorial anemia. His GI bleed was finally found and addressed. They brought in a cake to share in their celebration of their anniversary and Nicki's birthday. He reports that he is no longer lightheaded. Still some fatigue. Now will need Aranesp replacement and iron x 1. He may need low dose dacogen in the future if he is unresponsive. Updated visit, July 26, 2020: Lloyd is 79 years old and returns with his Lissette today having had a capsule endoscopy which was positive for GI bleed. This was stopped and he is now recovering from his blood loss anemia. We will continue supporting him with IV iron as needed but for now we will hold off he will continue need B12 and folic acid. He still has underlying myelodysplasia and stage IV chronic kidney disease which is contributing to his anemia but Corine is not bleeding any longer. Updated Visit, July 03, 2020: Lloyd is 79 years old and returns with his Lissette again requiring additional transfusions because of significantly low hemoglobin. I reviewed his bone marrow biopsy with him which is consistent with myelodysplastic syndrome but he has ongoing melena that is highly suspicious for a GI bleed. To date his endoscopic work-up has been negative but he is due to have a capsule endoscopy that hopefully will reveal the cause of his cytopenias. He feels weak and is in a wheelchair today. Updated Visit, June 15, 2020: Conducted by telephone. Sandip Broussard is a 79 year old male seen for pancytopenia recently having had bone marrow biopsy that is most consistent with. 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 Hopefully his iron deficiency can be corrected and perhaps any evidence of GI bleeding can be attenuated. He sees gastroenterology next week. He may need transfusion support before the weekend even though he was just transfused his 17th unit 2 days ago. I reviewed his bone marrow biopsy results with him and his Lissette in some detail. His erythropoietin level is markedly elevated indicating that supplementation would not help and that his renal failure is not contributing to his anemia. Initial Visit, May 29, 2020: Sandip Broussard presents today Hematology and Oncology evaluation. He is a 79 year old male who is accompanied by his Lissette on urgent referral from Dr. Flash Pearl for pancytopenia, hemoglobin of 5 with both recent EGD and colonoscopy demonstrating no evidence of active bleeding but slight chronic gastritis. He also had several epistaxes as blood to the point of requiring transfusions causing lightheadedness and unsteadiness. Patient states he has had black stools since July 2019. So far extensive work-up has been unrevealing. He has had recent hospitalization and was released on 05/26/2020. Full work-up at that time revealed an adequate erythropoietin response despite elevated creatinine and stage III chronic kidney disease. However his white blood cell count remains suppressed as does his platelet count of less than 100,000. Indeed, his epistaxis may be the cause of his melanotic stools but warrants another look and additionally he will need a bone marrow biopsy. His coags are normal. His red blood cell indices only indicate hypochromasia and macrocytosis. Patient had a bleeding scan that was negative as well. REVIEW OF SYSTEMS Per HPI and otherwise negative by full review of organ systems. ECOG PERFORMANCE STATUS: 2 PHYSICAL EXAMINATION: Vitals: BP 97/59 Pulse 73 Temp (Src) 97.2 (Temporal) Resp 20 Ht 5' 5.394 (1.66m) Wt 239 lb 9.6 oz (108.7kg) SpO2 95[O2 @ 2L]% BMI 39.39 kg/(m^2). Body surface area is 2.24 meters squared. Exam limited to gross visualization where appropriate. Gen.: This is an age-appropriate patient in no acute distress. Head: Appears atraumatic with no visible lesions. Eyes: Pupils equally round and reactive to light, extraocular muscles are intact. Neck: Supple. Mouth: Masked. Respiratory: Appears to be respiring comfortably. Neurologic: Nonfocal to gross visualization. Alert and oriented 3. Psychiatric: No evidence of inappropriate anxiety or depression. Skin: Visible areas of skin without rash, lesions, wounds or petechiae. ALLERGIES: ALLERGIES Allergen Reactions Bee Stings [Other] large hives, swelling at site Coreg [Carvedilol] Hives MEDICATIONS: ondansetron (ZOFRAN) 8 mg tablet Take 1 tablet by mouth every 8 hours as needed for nausea/vomiting. prochlorperazine (COMPAZINE) 10 mg tablet Take 1 tablet by mouth every 6 hours as needed. bumetanide (BUMEX) 2 mg tablet Take 2 mg by mouth every evening. omeprazole (PRILOSEC) 40 mg capsule Take 40 mg by mouth once daily. bumetanide (BUMEX) 1 mg tablet Take 1 mg by mouth every morning. potassium chloride SR (MICRO-K) 10 mEq CR capsule Take 10 mEq by mouth once daily. ciprofloxacin HCl (CIPRO) 500 mg tablet Take 500 mg by mouth once daily. FARXIGA 10 mg tablet Take 10 mg by mouth daily with breakfast. metoprolol succinate ER (TOPROL XL) 25 mg 24 hr tablet Take 25 mg by mouth once daily. spironolactone (ALDACTONE) 25 mg tablet Take 25 mg by mouth once daily. aspirin 81 mg chewable tablet CHEW 1 TABLET BY MOUTH EVERY DAY terazosin (HYTRIN) 5 mg capsule Take 5 mg by mouth daily at bedtime. Omeprazole-Sodium Bicarbonate 40-1,680 mg pack Take by mouth. sucralfate (CARAFATE) 1 gram tablet Take 1 g by mouth four times daily. [facility] NASAL OINTMENT Apply to affected area twice daily. atorvastatin (LIPITOR) 20 mg tablet Take 1 tablet by mouth daily at bedtime. colchicine 0.6 mg tablet Take 0.6 mg by mouth as needed. As needed 1-2 times/week lisinopril (ZESTRIL, PRINIVIL) 10 mg tablet Take 1 tablet by mouth once daily. Please resume this medication after PCP follow up ONETOUCH THANG PLUS LANCET 33 gauge glipiZIDE (GLUCOTROL) 5 mg tablet Take 5 mg by mouth once daily. nextsocialTOUCH ULTRA BLUE TEST STRIP test strip cholecalciferol (VITAMIN D3) 1,000 unit tab tablet 1,000 Units once daily. Only taking 500 units LABORATORY VALUES: WBC (k/uL) Date Value 06/03/2022 1.39 (L) RBC (m/uL) Date Value 06/03/2022 2.01 (L) Hemoglobin (g/dL) Date Value 06/03/2022 6.5 (L) Hematocrit (%) Date Value 06/03/2022 20.7 (L) MCV (fL) Date Value 06/03/2022 103.0 (H) MCH (pg) Date Value 06/03/2022 32.3 MCHC (g/dL) Date Value 06/03/2022 31.4 RDW-CV (%) Date Value 06/03/2022 23.2 (H) Platelet Count (k/uL) Date Value 06/03/2022 36 (L) MPV (fL) Date Value 05/13/2022 13.0 (H) Glucose (mg/dL) Date Value 06/03/2022 152 (H) BUN (mg/dL) Date Value 06/03/2022 24 Creatinine (mg/dL) Date Value 06/03/2022 1.57 (H) Sodium (mmol/L) Date Value 06/03/2022 140 Potassium (mmol/L) Date Value 06/03/2022 4.2 Chloride (mmol/L) Date Value 06/03/2022 103 CO2 (mmol/L) Date Value 06/03/2022 27 Protein, Total (g/dL) Date Value 06/03/2022 6.2 (L) Albumin (g/dL) Date Value 06/03/2022 3.7 (L) Calcium, Total (mg/dL) Date Value 06/03/2022 8.8 Alkaline Phosphatase (U/L) Date Value 06/03/2022 105 Bilirubin, Total (mg/dL) Date Value 06/03/2022 0.6 AST (U/L) Date Value 06/03/2022 23 ALT (U/L) Date Value 06/03/2022 47 Cholesterol, Total (mg/dL) Date Value 06/27/2005 153 Triglyceride (mg/dL) Date Value 06/27/2005 144 DIAGNOSIS: (D46.9) MDS (myelodysplastic syndrome) (HCC) (primary encounter diagnosis) (Z74.1) Dependent for standing Plan: BATH/SHOWER CHAIR (E83.111) 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 transfusions (N18.4) CRF (chronic renal failure), stage 4 (severe) (HCC) Plan: DISCONTINUED: epoetin larisa-epbx 80,000 Units injection (RETACRIT) (I50.41) 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) PAST MEDICAL HISTORY Diagnosis Date Anemia Anemia of chronic renal failure, stage 4 (severe) (HCC) 08/23/2020 Atrial fibrillation (HCC) Chronic kidney disease CRF (chronic renal failure), stage 4 (severe) (HCC) 08/23/2020 Diabetes mellitus (HCC) GI bleed Hypertension 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 loss 06/15/2020 Leukopenia Sleep apnea Thrombocytopenia (HCC) PAST SURGICAL HISTORY Procedure Laterality Date COLONOSCOPY Social History Tobacco Use Smoking status: Former Types: Pipe Quit date: 1994 Years since quittin.8 Passive exposure: Past Smokeless tobacco: Never Vaping Use Vaping Use: Never used Substance Use Topics Alcohol use: Not Currently Drug use: Not Currently I spent a total of 30 minutes on the date of the service which included preparing to see the patient, [id number] patient care, completing clinical documentation, obtaining and/or reviewing separately obtained history, performing a medically appropriate examination, counseling and educating the patient/family/caregiver, ordering medications, tests, or procedures, communicating with other HCPs (not separately reported), and independently interpreting results (not separately reported). Asher Hummel MD, CPE Hematology and Oncology Services Provided at: [place], [place] CC: Dr. Flash Gomez (Cardiology [facility] [place]) MD Elysia Merlos MD documented in this encounter [facility] 05-23-2022 Miscellaneous Notes CYCLE 1/DAY 1 POST TREATMENT CALL Today's date: May 23, 2022 Treatment Regimen: Decitabine C1D1 Date: 05/20/2022 Called patient to follow-up on symptom management. Spoke with patient's spouse. SYMPTOM ASSESSMENT Neuro: None CV/Resp: Wearing oxygen @ 2 LPM via NC. GI/: Appetite: decreased appetite, Fluid intake: Spouse states, Not enough . Spouse unclear if pt is having any nausea, vomiting, constipation, or diarrhea. States, He won't talk to me. Integument: None Activity: Spouse reports the pt sleeps frequently. Pain: No=0 (pain 0 on a scale of 0-10). Fever: No Chills: No Spouse reports the pt has been in a crappy mood. Notes the pt will not speak to her. Asked if pt would speak w/ RNCC. Spouse states, You can call the house but he won't answer the phone. Call placed to pt's home. No answer. Message left encouraging pt to call back. Any new referrals needed? No Reinforced CURRENT treatment education based on current and anticipated symptoms. Discussed port/line care and patient verbalizes understanding: Not Applicable Patient instructed to contact office or after hours Hematology/Oncology fellow for: temperature ? 100.4; questions or concerns. Patient verbalized understanding of when to seek medical attention and after hours number protocol. Angle Kamara RN documented in this encounter [facility] 05-21-2022 Note [facility] 05-20-2022 Note [facility] 05-20-2022 Miscellaneous Notes The following approved medication requests have been transmitted electronically. Requested Prescriptions Signed Prescriptions Disp Refills ondansetron (ZOFRAN) 8 mg tablet 90 tablet 1 Sig: Take 1 tablet by mouth every 8 hours as needed for nausea/vomiting. Authorizing Provider: WILFRED MARTINEZ prochlorperazine (COMPAZINE) 10 mg tablet 100 tablet 1 Sig: Take 1 tablet by mouth every 6 hours as needed. Authorizing Provider: WILFRED MARTINEZ APRN.FUNCTIONAL [employer] Scripts pended for antiemetics. Please review and approve. Thanks! Angle Kamara, RN documented in this encounter [facility] 05-20-2022 Miscellaneous Notes 1 unit packed RBC's at [facility] on Friday05-24-22 at 9am. Lab on anytime before noon. Patient and are aware of this appt. documented in this encounter [facility] 05-20-2022 Instructions Asher Hummel MD - 05/20/2022 2:40 PM EDT Start low dose decitabine weekly x 2 days (M, T) Retacrit today and weekly for Hgb < 12 Labs once / week RTC in 2 weeks Transfuse 1 unit PRBCs for Hgb < 8.5 (this week on @ [facility] please) documented in this encounter [facility] 05-20-2022 History of Present illness Narrative Images from the original note were not included. NAME: Sandip Broussard CLINIC NO.: [id number] DATE OF SERVICE: May 20, 2022 ([facility] Some elements in this clinic note that are critical to medical decision making have been carefully reviewed and included from a prior clinic note dated: May 06, 2022 ([facility]) Referring Provider: Dr. Flash Pearl Additional Clinicians involved in Sandip Broussard's care: Dr. José Luis Velasquez, Dr. Oumou Wade CC: Follow up ASSESSMENT: 81 year old year old man with MDS, stage 4 chronic kidney disease and iron deficiency anemia d/t GI blood loss (seen on capsule endoscopy) and epistaxis. Was receiving high dose EPO every 2 weeks with periodic iron infusions. With persisting cytopenia we started him on Vidaza low dose to see if we could positively impact his pancytopenia and reduce his fatigue as well as his Epo usage. Unfortunately he suffered an acute [place] 11/23/2021 and also developed another GI bleed. He was transfused, and medically managed after catheterization. 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 He has been requiring transfusion of PRBCs every 3-4 weeks. At this time there is question if he is responding to vidaza. He was seen by Dr. Esposito (her input is much appreciated) who recommended increasing his reticrit to weekly, which he will receive today, attempt to transfuse to keep his hgb >8 due to his CHF history, and proceed with repeat bone marrow biopsy (scheduled for 04/25/22), and get hematologic NGS on him. PLAN: Start low dose decitabine weekly x 2 days (M, T) Retacrit today and weekly for Hgb < 12 Labs once / week RTC in 2 weeks Transfuse 1 unit PRBCs for Hgb < 8.5 (this week on @ [facility] please) TREATMENT TO DATE: 4. 05/20/2022 - Low dose Decitabine weekly 3. 07/09/2021 - 04/08/2022: Vidaza D1-5 q 28. 2. Retacrit 80,000 units every other week 1. Intermittent IV Iron HPI: Updated Visit, May 20, 2022: Lloyd returns with his Nicki. He was transfused 2 weeks ago. Presents to start dacogen today. Feels weak today and will need transfusion support. Education and consent done and obtained today. Updated Visit, May 06, 2022: Reviewed bone marrow results and labs with them. Will discuss with my colleague Dr. Esposito with respect to starting Dacogen. 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 Will need retacrit today and weekly as well as PRBC transfusion Updated Visit, April 29, 2022: Lloyd returns and has ongoing cytopenias. Awaiting bone marrow biopsy results. Will continue retacrit weekly. No need for transfusion today. Updated Visit, April 22, 2022: Patient saw Dr. Esposito (recommendations are above). Feels about the same. Hgb today is 7.5 Bone marrow scheduled for 04/25/22 Updated Visit, April 08, 2022: Hgb 8.1 today after transfusion 5 days ago. Due to See Dr. Esposito next 04/18/2022 Will cancel Vidaza for now. Continue aranesp Maintain transfusion support. Updated Visit, March 11, 2022: Unfortunately Lloyd is not maintaining any response to single agent Vidaza and remains transfusion dependent. I spoke with him and his his about seeking an opinion downtown with our Leukemia group as well as Hospice. It was a tearfu meeting as lissette is significantly younger than Lloyd. Updated Visit, February 11, 2022: Patient received 2 units of PRBC on 02/05/22 for hgb of 6.8. Saw cardiology today no changes. Denies any fevers, chill, nausea or vomiting. Overall, other than his normal fatigue, he feels well. Updated Visit, January 14, 2022: Lloyd in good spirit returns to continue treatments for MDS. I think we are making some progress as we haven't had to transfuse him in 4 weeks. WBC counts always start low at the beginning of each cycle but after D5, improve significantly. Hasn't been transfused for 4 weeks - anticipate need this week. Using BiPap and can sleep in bed now. Updated Visit, December 17, 2021: Lloyd is 81 years old and returns with his Lissette in follow-up. He feels much better having had several units transfused and now has a hemoglobin of 10.2. We revisited the discussion of pursuing treatment versus hospice and he is still indeterminant. We discussed pursuing a few more cycles and then reconsidering at that time. He does have some evidence of improvement with improving white blood cell count as well as platelet count improvement. He feels really good following his transfusion and wishes to proceed. Updated Visit, November 29, 2021: Lloyd returns unfortunately had Afib and heart failure with AMI and significant MV regurg. Fatigued. Will consider Hospice. Hold treatment for now and reconsider in 3-4 weeks. Also recovering from pneumonia. Reviewed outside records. Updated Visit, October 25, 2021: Sandip Broussard returns for scheduled follow up. He states that he is feeling slow . He has shortness of breath all the time. He denies any dizziness. He denies any abnormal blood loss. Updated Visit, October 01, 2021: Lloyd is 80 years old and returns with his Lissette for treatment with low-dose Vidaza. He appears to be having some response with improving platelet counts. His only complaints are that of increased abdominal gas. He is otherwise doing well. Continue Retacrit and treatment as recommended. He is safe to proceed. Sees ENT next week No more nose bleeds after stopping Eliquis. Updated Visit, September 17, 2021: Sandip Broussard returns for scheduled follow-up. Since his last visit there has been no significant medical changes. He denies bleeding and abnormal bruising. He denies fevers, chills, night sweats and signs/symptoms of infection. Overall, he feels fairly well. Updated Visit, September 03, 2021: BP improved. Labs stable and platelets have recovered. Was transfused last week and feels better. Neutropenia is disease related and we will continue with treatment. Continue retacrit as Ordered. Transfuse periodically. Updated Visit, August 24, 2021: Lloyd returns today prior to Retacrit during his 2 weeks following Vidaza. Has been having some pain at the base of his skull and is having some dizziness. BP is low - stop Norvasc and Hytrin, and hold Aldactone for now. It is their anniversary today - 49th! Updated Visit, August 06, 2021: Lloyd returns today for follow up and cycle 2 of vidaza. Feeling well. Ran out of his diuretic for a week and had some JANG. Was able to get his medications refilled and is feeling better now. No swelling, chest pain, dizziness, fever, chills or other concerning symptoms. Updated Visit, July 19, 2021: Snadip Broussard returns for follow-up. He received his first cycle of Vidaza 07/09/2021 through 07/13/2021. Overall, he tolerated treatment well without any side effects. He is doing well today and offers no new particular complaints. Updated Visit, July 09, 2021: Hasn't required transfusion since 06/2020. Still profoundly anemic despite adequate dosing of aranesp for CKD. Will proceed with low dose Vidaza. Reviewed plan and goals again. Updated Visit, May 31, 2021: EPO was increased to 80,000 units about 2 weeks ago. Feels the same. reports he still spends most of his day on the couch napping. Patient denies any bleeding. Does have diarrhea, which he has had for over 3 months. 2 loose stools a day. Afraid to go places because of the urgency a/w it. Patient denies bleeding. Does not want to see GI at this time. Has not taken anything for it. No new medications. Updated Visit, May 02, 2021: Lloyd returns with his Lissette and reports that he can't exert himself too much but can get out to the barn and doesn't get dizzy anymore. Still not responding as robustly to increased EPO, so will increase to 80k every 2 weeks. Updated Visit, March 07, 2021: Lloyd returns with his Lissette and was seen by Dr. Wade approximately 1 week ago from ENT. Patient was a little bit confused on instructions given and so I reviewed the recommendations and clarified for Lloyd exactly what his regimen should be. This includes stopping Eliquis as well as aspirin. He appears to be stable from a laboratory perspective but continues to have low platelets and generalized pancytopenia. We discussed again, the goal of his treatment and interventions to be palliative as he requested. He feels well today. Updated Visit, February 21, 2021: Nose bleed Friday- ER plugged it up but then went back on Friday hospitalized until this morning Still seeping blood. Operated on nose- surgery w/ Dr. Marshall Last fall in [place]. Has tranexamic acid at home. Requesting ENT referral at [facility]. He is dehydrated and not keeping up with fluids. Partition Setter is elevated exacerbating cause was likely letting his CPAP reservoir go dry. Ferritin is coming down. Updated Visit, January 10, 2021: Lloyd is here for follow up. After review of his chart, he has stage IV ckd and presented with pancytopenia, including significant anemia requiring transfusion due to GI bleeding and nose bleeds. 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 He has received IV iron in the past along with retacrit, which he is currently receiving every other week. Current goal is quality of life with the least amount visits. He did just have a nose bleed on Friday, and it didn't last long. He made his own plug and kept it in his nose for 24 hours and no additional bleeding. He is taking his eliquis one pill daily, but he held it the last two days due to the nose bleed. He is not on aspirin. Overall he feels well and offers no complaints of significant fatigue, shortness of breath, cough, fever, chills or signs of infections. Updated Visit, November 15, 2020: Sandip Broussard returns for follow-up. He remains on Retacrit 40,000 units every 2 weeks and is tolerating it well. Recently he has noticed pain in the back of his neck. He experienced this same pain when his hemoglobin was low in the past. He states that he takes Tylenol with improvement in the pain. He denies any signs of bleeding. He states that his bruising is better. He is still taking the Eliquis daily at the recommendation of his fashion model. Since stopping the aspirin he has not had any further nosebleeds. He denies fevers, chills, night sweats and signs/symptoms of infection. He has persistent exertional shortness of breath. Updated Visit, September 20, 2020: Lloyd is 79 and returns with his Lissette for discussion on his overall condition as well as his rec to have watchman for A-fib. However, our discussion reveals that he really doesn't want to do anything and that he also doesn't want to take full dose anticoagulation. I pressed him and verified that his goals were to focus on quality of life and get minimally involved in medical procedures. We will continue to monitor his counts and transfuse or give iron and retacrit as necessary, but minimize his follow ups. Updated Visit, August 23, 2020: Lloyd is 79 years old and returns with his Lissette today for multifactorial anemia. His GI bleed was finally found and addressed. They brought in a cake to share in their celebration of their anniversary and Nicki's birthday. He reports that he is no longer lightheaded. Still some fatigue. Now will need Aranesp replacement and iron x 1. He may need low dose dacogen in the future if he is unresponsive. Updated visit, July 26, 2020: Lloyd is 79 years old and returns with his Lissette today having had a capsule endoscopy which was positive for GI bleed. This was stopped and he is now recovering from his blood loss anemia. We will continue supporting him with IV iron as needed but for now we will hold off he will continue need B12 and folic acid. He still has underlying myelodysplasia and stage IV chronic kidney disease which is contributing to his anemia but Corine is not bleeding any longer. Updated Visit, July 03, 2020: Lloyd is 79 years old and returns with his Lissette again requiring additional transfusions because of significantly low hemoglobin. I reviewed his bone marrow biopsy with him which is consistent with myelodysplastic syndrome but he has ongoing melena that is highly suspicious for a GI bleed. To date his endoscopic work-up has been negative but he is due to have a capsule endoscopy that hopefully will reveal the cause of his cytopenias. He feels weak and is in a wheelchair today. Updated Visit, June 15, 2020: Conducted by telephone. Sandip Broussard is a 79 year old male seen for pancytopenia recently having had bone marrow biopsy that is most consistent with. 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 Hopefully his iron deficiency can be corrected and perhaps any evidence of GI bleeding can be attenuated. He sees gastroenterology next week. He may need transfusion support before the weekend even though he was just transfused his 17th unit 2 days ago. I reviewed his bone marrow biopsy results with him and his Lissette in some detail. His erythropoietin level is markedly elevated indicating that supplementation would not help and that his renal failure is not contributing to his anemia. Initial Visit, May 29, 2020: Sandip Broussard presents today Hematology and Oncology evaluation. He is a 79 year old male who is accompanied by his Lissette on urgent referral from Dr. Flash Pearl for pancytopenia, hemoglobin of 5 with both recent EGD and colonoscopy demonstrating no evidence of active bleeding but slight chronic gastritis. He also had several epistaxes as blood to the point of requiring transfusions causing lightheadedness and unsteadiness. Patient states he has had black stools since July 2019. So far extensive work-up has been unrevealing. He has had recent hospitalization and was released on 05/26/2020. Full work-up at that time revealed an adequate erythropoietin response despite elevated creatinine and stage III chronic kidney disease. However his white blood cell count remains suppressed as does his platelet count of less than 100,000. Indeed, his epistaxis may be the cause of his melanotic stools but warrants another look and additionally he will need a bone marrow biopsy. His coags are normal. His red blood cell indices only indicate hypochromasia and macrocytosis. Patient had a bleeding scan that was negative as well. REVIEW OF SYSTEMS Per HPI and otherwise negative by full review of organ systems. ECOG PERFORMANCE STATUS: 1 PHYSICAL EXAMINATION: Vitals: BP 121/47 Pulse 74 Temp (Src) 97.5 (Temporal) Resp 18 Ht 5' 5.394 [verified 2 MA's shoes off[ (1.66m) Wt 238 lb 6.4 oz (108.1kg) SpO2 94[O2 @ 2L]% BMI 39.20 kg/(m^2). Body surface area is 2.23 meters squared. Exam limited to gross visualization where appropriate. Gen.: This is an age-appropriate patient in no acute distress. Head: Appears atraumatic with no visible lesions. Eyes: Pupils equally round and reactive to light, extraocular muscles are intact. Neck: Supple. Mouth: Masked. Respiratory: Appears to be respiring comfortably. Neurologic: Nonfocal to gross visualization. Alert and oriented 3. Psychiatric: No evidence of inappropriate anxiety or depression. Skin: Visible areas of skin without rash, lesions, wounds or petechiae. ALLERGIES: ALLERGIES Allergen Reactions Bee Stings [Other] large hives, swelling at site Coreg [Carvedilol] Hives MEDICATIONS: bumetanide (BUMEX) 1 mg tablet Take 1 mg by mouth every morning. potassium chloride SR (MICRO-K) 10 mEq CR capsule Take 10 mEq by mouth once daily. ciprofloxacin HCl (CIPRO) 500 mg tablet Take 500 mg by mouth once daily. FARXIGA 10 mg tablet Take 10 mg by mouth daily with breakfast. metoprolol succinate ER (TOPROL XL) 25 mg 24 hr tablet Take 25 mg by mouth once daily. spironolactone (ALDACTONE) 25 mg tablet Take 25 mg by mouth once daily. aspirin 81 mg chewable tablet CHEW 1 TABLET BY MOUTH EVERY DAY terazosin (HYTRIN) 5 mg capsule Take 5 mg by mouth daily at bedtime. Omeprazole-Sodium Bicarbonate 40-1,680 mg pack Take by mouth. sucralfate (CARAFATE) 1 gram tablet Take 1 g by mouth four times daily. [facility] NASAL OINTMENT Apply to affected area twice daily. atorvastatin (LIPITOR) 20 mg tablet Take 1 tablet by mouth daily at bedtime. colchicine 0.6 mg tablet Take 0.6 mg by mouth as needed. As needed 1-2 times/week lisinopril (ZESTRIL, PRINIVIL) 10 mg tablet Take 1 tablet by mouth once daily. Please resume this medication after PCP follow up ONETOUCH DELICA PLUS LANCET 33 gauge glipiZIDE (GLUCOTROL) 5 mg tablet Take 5 mg by mouth once daily. ONETOUCH ULTRA BLUE TEST STRIP test strip cholecalciferol (VITAMIN D3) 1,000 unit tab tablet 1,000 Units once daily. Only taking 500 units bumetanide (BUMEX) 2 mg tablet Take 2 mg by mouth every evening. omeprazole (PRILOSEC) 40 mg capsule Take 40 mg by mouth once daily. LABORATORY VALUES: WBC (k/uL) Date Value 05/20/2022 1.73 (L) RBC (m/uL) Date Value 05/20/2022 2.30 (L) Hemoglobin (g/dL) Date Value 05/20/2022 7.6 (L) Hematocrit (%) Date Value 05/20/2022 23.9 (L) MCV (fL) Date Value 05/20/2022 103.9 (H) MCH (pg) Date Value 05/20/2022 33.0 MCHC (g/dL) Date Value 05/20/2022 31.8 RDW-CV (%) Date Value 05/20/2022 23.9 (H) Platelet Count (k/uL) Date Value 05/20/2022 69 (L) MPV (fL) Date Value 05/13/2022 13.0 (H) Glucose (mg/dL) Date Value 05/20/2022 128 (H) BUN (mg/dL) Date Value 05/20/2022 28 (H) Creatinine (mg/dL) Date Value 05/20/2022 1.69 (H) Sodium (mmol/L) Date Value 05/20/2022 145 (H) Potassium (mmol/L) Date Value 05/20/2022 4.2 Chloride (mmol/L) Date Value 05/20/2022 105 CO2 (mmol/L) Date Value 05/20/2022 33 (H) Protein, Total (g/dL) Date Value 05/20/2022 6.2 (L) Albumin (g/dL) Date Value 05/20/2022 4.0 Calcium, Total (mg/dL) Date Value 05/20/2022 8.3 (L) Alkaline Phosphatase (U/L) Date Value 05/20/2022 101 Bilirubin, Total (mg/dL) Date Value 05/20/2022 0.7 AST (U/L) Date Value 05/20/2022 25 ALT (U/L) Date Value 05/20/2022 43 Cholesterol, Total (mg/dL) Date Value 06/27/2005 153 Triglyceride (mg/dL) Date Value 06/27/2005 144 DIAGNOSIS: (D46.9) Myelodysplastic syndrome (HCC) (primary encounter diagnosis) (D46.9) MDS (myelodysplastic syndrome) (HCC) (E83.111) 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 transfusions (N18.4) CRF (chronic renal failure), stage 4 (severe) (HCC) PAST MEDICAL HISTORY Diagnosis Date Anemia Anemia of chronic renal failure, stage 4 (severe) (HCC) 08/23/2020 Atrial fibrillation (HCC) Chronic kidney disease CRF (chronic renal failure), stage 4 (severe) (HCC) 08/23/2020 Diabetes mellitus (HCC) GI bleed Hypertension 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 loss 06/15/2020 Leukopenia Sleep apnea Thrombocytopenia (HCC) PAST SURGICAL HISTORY Procedure Laterality Date COLONOSCOPY Social History Tobacco Use Smoking status: Former Types: Pipe Quit date: 1994 Years since quittin.8 Passive exposure: Past Smokeless tobacco: Never Vaping Use Vaping Use: Never used Substance Use Topics Alcohol use: Not Currently Drug use: Not Currently I spent a total of 30 minutes on the date of the service which included preparing to see the patient, [id number] patient care, completing clinical documentation, obtaining and/or reviewing separately obtained history, performing a medically appropriate examination, counseling and educating the patient/family/caregiver, ordering medications, tests, or procedures, communicating with other HCPs (not separately reported), and independently interpreting results (not separately reported). Asher Hummel MD, CPE Hematology and Oncology Services Provided at: [place], [place] CC: Dr. Flash Gomez (Cardiology [facility] [place]) MD Elysia Merlos MD documented in this encounter [facility] 05-20-2022 Nurse Note Patient is interested in getting Flu shot. Opal Campbell MA documented in this encounter [facility] 05-14-2022 Miscellaneous Notes Appointment scheduled & confirmed with pt's spouse. Per secure chat from Dr Hummel: hello - I'd like Don to start Dacogen on Friday will need education as well as consent. Thank you. Clerical: Please schedule. Pharmacy: [facility]... Angle Kamara RN documented in this encounter [facility] 05-06-2022 Note [facility] 05-06-2022 Miscellaneous Notes Patient will get TSC tomorrow at [place] between 6:30 and 5 pm (outpatient lab hours) Tranfusion is scheduled for Friday, 05/08 @ 12:00 pm. Ada Perez documented in this encounter [facility] 05-06-2022 Instructions Asher Hummel MD - 05/06/2022 4:30 PM EDT Retacrit today and weekly for Hgb < 12 Labs once / week RTC in 2 weeks Transfuse 1 unit PRBCs for Hgb < 8.5 documented in this encounter [facility] 05-06-2022 History of Present illness Narrative Images from the original note were not included. NAME: Sandip Broussard [facility] NO.: [id number] DATE OF SERVICE: May 06, 2022 (Estephanie) Some elements in this clinic note that are critical to medical decision making have been carefully reviewed and included from a prior clinic note dated:April 29, 2022 (Estephanie) Referring Provider: Dr. Flash Pearl Additional Clinicians involved in Sandip Broussard's care: Dr. José Luis Velasquez, Dr. Oumou Wade CC: Follow up ASSESSMENT: 81 year old year old man with MDS, stage 4 chronic kidney disease and iron deficiency anemia d/t GI blood loss (seen on capsule endoscopy) and epistaxis. Was receiving high dose EPO every 2 weeks with periodic iron infusions. With persisting cytopenia we started him on Vidaza low dose to see if we could positively impact his pancytopenia and reduce his fatigue as well as his Epo usage. Unfortunately he suffered an acute [place] 11/23/2021 and also developed another GI bleed. He was transfused, and medically managed after catheterization. 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 He has been requiring transfusion of PRBCs every 3-4 weeks. At this time there is question if he is responding to vidaza. He was seen by Dr. Esposito (her input is much appreciated) who recommended increasing his reticrit to weekly, which he will receive today, attempt to transfuse to keep his hgb >8 due to his CHF history, and proceed with repeat bone marrow biopsy (scheduled for 04/25/22), and get hematologic NGS on him. PLAN: Retacrit today and weekly for Hgb < 12 Labs once / week RTC in 2 weeks Transfuse 1 unit PRBCs for Hgb < 8.5 TREATMENT TO DATE: 3. 07/09/2021 - 04/08/2022: Vidaza D1-5 q 28. 2. Retacrit 80,000 units every other week 1. Intermittent IV Iron HPI: Updated Visit, May 06, 2022: Reviewed bone marrow results and labs with them. Will discuss with my colleague Dr. Esposito with respect to starting Dacogen. 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 Will need retacrit today and weekly as well as PRBC transfusion Updated Visit, April 29, 2022: Lloyd returns and has ongoing cytopenias. Awaiting bone marrow biopsy results. Will continue retacrit weekly. No need for transfusion today. Updated Visit, April 22, 2022: Patient saw Dr. Esposito (recommendations are above). Feels about the same. Hgb today is 7.5 Bone marrow scheduled for 04/25/22 Updated Visit, April 08, 2022: Hgb 8.1 today after transfusion 5 days ago. Due to See Dr. Esposito next 04/18/2022 Will cancel Vidaza for now. Continue aranesp Maintain transfusion support. Updated Visit, March 11, 2022: Unfortunately Lloyd is not maintaining any response to single agent Vidaza and remains transfusion dependent. I spoke with him and his his about seeking an opinion downtown with our Leukemia group as well as Hospice. It was a tearfu meeting as lissette is significantly younger than Lloyd. Updated Visit, February 11, 2022: Patient received 2 units of PRBC on 02/05/22 for hgb of 6.8. Saw cardiology today no changes. Denies any fevers, chill, nausea or vomiting. Overall, other than his normal fatigue, he feels well. Updated Visit, January 14, 2022: Lloyd in good spirit returns to continue treatments for MDS. I think we are making some progress as we haven't had to transfuse him in 4 weeks. WBC counts always start low at the beginning of each cycle but after D5, improve significantly. Hasn't been transfused for 4 weeks - anticipate need this week. Using BiPap and can sleep in bed now. Updated Visit, December 17, 2021: Lloyd is 81 years old and returns with his Lissette in follow-up. He feels much better having had several units transfused and now has a hemoglobin of 10.2. We revisited the discussion of pursuing treatment versus hospice and he is still indeterminant. We discussed pursuing a few more cycles and then reconsidering at that time. He does have some evidence of improvement with improving white blood cell count as well as platelet count improvement. He feels really good following his transfusion and wishes to proceed. Updated Visit, November 29, 2021: Lloyd returns unfortunately had Afib and heart failure with AMI and significant MV regurg. Fatigued. Will consider Hospice. Hold treatment for now and reconsider in 3-4 weeks. Also recovering from pneumonia. Reviewed outside records. Updated Visit, October 25, 2021: Sandip Broussard returns for scheduled follow up. He states that he is feeling slow . He has shortness of breath all the time. He denies any dizziness. He denies any abnormal blood loss. Updated Visit, October 01, 2021: Lloyd is 80 years old and returns with his Lissette for treatment with low-dose Vidaza. He appears to be having some response with improving platelet counts. His only complaints are that of increased abdominal gas. He is otherwise doing well. Continue Retacrit and treatment as recommended. He is safe to proceed. Sees ENT next week No more nose bleeds after stopping Eliquis. Updated Visit, September 17, 2021: Sandip Broussard returns for scheduled follow-up. Since his last visit there has been no significant medical changes. He denies bleeding and abnormal bruising. He denies fevers, chills, night sweats and signs/symptoms of infection. Overall, he feels fairly well. Updated Visit, September 03, 2021: BP improved. Labs stable and platelets have recovered. Was transfused last week and feels better. Neutropenia is disease related and we will continue with treatment. Continue retacrit as Ordered. Transfuse periodically. Updated Visit, August 24, 2021: Lloyd returns today prior to Retacrit during his 2 weeks following Vidaza. Has been having some pain at the base of his skull and is having some dizziness. BP is low - stop Norvasc and Hytrin, and hold Aldactone for now. It is their anniversary today - 49th! Updated Visit, August 06, 2021: Lloyd returns today for follow up and cycle 2 of vidaza. Feeling well. Ran out of his diuretic for a week and had some JANG. Was able to get his medications refilled and is feeling better now. No swelling, chest pain, dizziness, fever, chills or other concerning symptoms. Updated Visit, July 19, 2021: Sandip Broussard returns for follow-up. He received his first cycle of Vidaza 07/09/2021 through 07/13/2021. Overall, he tolerated treatment well without any side effects. He is doing well today and offers no new particular complaints. Updated Visit, July 09, 2021: Hasn't required transfusion since 06/2020. Still profoundly anemic despite adequate dosing of aranesp for CKD. Will proceed with low dose Vidaza. Reviewed plan and goals again. Updated Visit, May 31, 2021: EPO was increased to 80,000 units about 2 weeks ago. Feels the same. reports he still spends most of his day on the couch napping. Patient denies any bleeding. Does have diarrhea, which he has had for over 3 months. 2 loose stools a day. Afraid to go places because of the urgency a/w it. Patient denies bleeding. Does not want to see GI at this time. Has not taken anything for it. No new medications. Updated Visit, May 02, 2021: Lloyd returns with his Lissette and reports that he can't exert himself too much but can get out to the barn and doesn't get dizzy anymore. Still not responding as robustly to increased EPO, so will increase to 80k every 2 weeks. Updated Visit, March 07, 2021: Lloyd returns with his Lissette and was seen by Dr. Wade approximately 1 week ago from ENT. Patient was a little bit confused on instructions given and so I reviewed the recommendations and clarified for Lloyd exactly what his regimen should be. This includes stopping Eliquis as well as aspirin. He appears to be stable from a laboratory perspective but continues to have low platelets and generalized pancytopenia. We discussed again, the goal of his treatment and interventions to be palliative as he requested. He feels well today. Updated Visit, February 21, 2021: Nose bleed Friday- ER plugged it up but then went back on Friday hospitalized until this morning Still seeping blood. Operated on nose- surgery w/ Dr. Marshall Last fall in [place]. Has tranexamic acid at home. Requesting ENT referral at [facility]. He is dehydrated and not keeping up with fluids. Partition Setter is elevated exacerbating cause was likely letting his CPAP reservoir go dry. Ferritin is coming down. Updated Visit, January 10, 2021: Lloyd is here for follow up. After review of his chart, he has stage IV ckd and presented with pancytopenia, including significant anemia requiring transfusion due to GI bleeding and nose bleeds. 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 He has received IV iron in the past along with retacrit, which he is currently receiving every other week. Current goal is quality of life with the least amount visits. He did just have a nose bleed on Friday, and it didn't last long. He made his own plug and kept it in his nose for 24 hours and no additional bleeding. He is taking his eliquis one pill daily, but he held it the last two days due to the nose bleed. He is not on aspirin. Overall he feels well and offers no complaints of significant fatigue, shortness of breath, cough, fever, chills or signs of infections. Updated Visit, November 15, 2020: Sandip Broussard returns for follow-up. He remains on Retacrit 40,000 units every 2 weeks and is tolerating it well. Recently he has noticed pain in the back of his neck. He experienced this same pain when his hemoglobin was low in the past. He states that he takes Tylenol with improvement in the pain. He denies any signs of bleeding. He states that his bruising is better. He is still taking the Eliquis daily at the recommendation of his fashion model. Since stopping the aspirin he has not had any further nosebleeds. He denies fevers, chills, night sweats and signs/symptoms of infection. He has persistent exertional shortness of breath. Updated Visit, September 20, 2020: Lloyd is 79 and returns with his Lissette for discussion on his overall condition as well as his rec to have watchman for A-fib. However, our discussion reveals that he really doesn't want to do anything and that he also doesn't want to take full dose anticoagulation. I pressed him and verified that his goals were to focus on quality of life and get minimally involved in medical procedures. We will continue to monitor his counts and transfuse or give iron and retacrit as necessary, but minimize his follow ups. Updated Visit, August 23, 2020: Lloyd is 79 years old and returns with his Lissette today for multifactorial anemia. His GI bleed was finally found and addressed. They brought in a cake to share in their celebration of their anniversary and Nicki's birthday. He reports that he is no longer lightheaded. Still some fatigue. Now will need Aranesp replacement and iron x 1. He may need low dose dacogen in the future if he is unresponsive. Updated visit, July 26, 2020: Lloyd is 79 years old and returns with his Lissette today having had a capsule endoscopy which was positive for GI bleed. This was stopped and he is now recovering from his blood loss anemia. We will continue supporting him with IV iron as needed but for now we will hold off he will continue need B12 and folic acid. He still has underlying myelodysplasia and stage IV chronic kidney disease which is contributing to his anemia but Corine is not bleeding any longer. Updated Visit, July 03, 2020: Lloyd is 79 years old and returns with his Lissette again requiring additional transfusions because of significantly low hemoglobin. I reviewed his bone marrow biopsy with him which is consistent with myelodysplastic syndrome but he has ongoing melena that is highly suspicious for a GI bleed. To date his endoscopic work-up has been negative but he is due to have a capsule endoscopy that hopefully will reveal the cause of his cytopenias. He feels weak and is in a wheelchair today. Updated Visit, June 15, 2020: Conducted by telephone. Sandip Broussard is a 79 year old male seen for pancytopenia recently having had bone marrow biopsy that is most consistent with. 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 Hopefully his iron deficiency can be corrected and perhaps any evidence of GI bleeding can be attenuated. He sees gastroenterology next week. He may need transfusion support before the weekend even though he was just transfused his 17th unit 2 days ago. I reviewed his bone marrow biopsy results with him and his Lissette in some detail. His erythropoietin level is markedly elevated indicating that supplementation would not help and that his renal failure is not contributing to his anemia. Initial Visit, May 29, 2020: Sandip Broussard presents today Hematology and Oncology evaluation. He is a 79 year old male who is accompanied by his Lissette on urgent referral from Dr. Flash Pearl for pancytopenia, hemoglobin of 5 with both recent EGD and colonoscopy demonstrating no evidence of active bleeding but slight chronic gastritis. He also had several epistaxes as blood to the point of requiring transfusions causing lightheadedness and unsteadiness. Patient states he has had black stools since July 2019. So far extensive work-up has been unrevealing. He has had recent hospitalization and was released on 05/26/2020. Full work-up at that time revealed an adequate erythropoietin response despite elevated creatinine and stage III chronic kidney disease. However his white blood cell count remains suppressed as does his platelet count of less than 100,000. Indeed, his epistaxis may be the cause of his melanotic stools but warrants another look and additionally he will need a bone marrow biopsy. His coags are normal. His red blood cell indices only indicate hypochromasia and macrocytosis. Patient had a bleeding scan that was negative as well. REVIEW OF SYSTEMS Per HPI and otherwise negative by full review of organ systems. ECOG PERFORMANCE STATUS: 1 PHYSICAL EXAMINATION: Vitals: BP 140/83 Pulse 65 Temp (Src) 97.5 (Temporal) Resp 16 Ht 5' 5.787 (1.67m) Wt 246 lb 6.4 oz (111.8kg) SpO2 94[O2 @ 2L]% BMI 40.03 kg/(m^2). Body surface area is 2.28 meters squared. Exam limited to gross visualization where appropriate. Gen.: This is an age-appropriate patient in no acute distress. Head: Appears atraumatic with no visible lesions. Eyes: Pupils equally round and reactive to light, extraocular muscles are intact. Neck: Supple. Mouth: Masked. Respiratory: Appears to be respiring comfortably. Neurologic: Nonfocal to gross visualization. Alert and oriented 3. Psychiatric: No evidence of inappropriate anxiety or depression. Skin: Visible areas of skin without rash, lesions, wounds or petechiae. ALLERGIES: ALLERGIES Allergen Reactions Bee Stings [Other] large hives, swelling at site Coreg [Carvedilol] Hives MEDICATIONS: bumetanide (BUMEX) 1 mg tablet 2 mg. potassium chloride SR (MICRO-K) 10 mEq CR capsule ciprofloxacin HCl (CIPRO) 500 mg tablet Take 500 mg by mouth once daily. FARXIGA 10 mg tablet metoprolol succinate ER (TOPROL XL) 25 mg 24 hr tablet Take 25 mg by mouth once daily. spironolactone (ALDACTONE) 25 mg tablet Take 25 mg by mouth once daily. aspirin 81 mg chewable tablet CHEW 1 TABLET BY MOUTH EVERY DAY terazosin (HYTRIN) 5 mg capsule Take 5 mg by mouth daily at bedtime. Omeprazole-Sodium Bicarbonate 40-1,680 mg pack Take by mouth. sucralfate (CARAFATE) 1 gram tablet Take 1 g by mouth four times daily. [facility] NASAL OINTMENT Apply to affected area twice daily. atorvastatin (LIPITOR) 20 mg tablet Take 1 tablet by mouth daily at bedtime. colchicine 0.6 mg tablet Take 0.6 mg by mouth as needed. As needed 1-2 times/week lisinopril (ZESTRIL, PRINIVIL) 10 mg tablet Take 1 tablet by mouth once daily. Please resume this medication after PCP follow up ONETOUCH DELICA PLUS LANCET 33 gauge glipiZIDE (GLUCOTROL) 5 mg tablet Take 5 mg by mouth once daily. ONETOUCH ULTRA BLUE TEST STRIP test strip cholecalciferol (VITAMIN D3) 1,000 unit tab tablet 1,000 Units once daily. Only taking 500 units LABORATORY VALUES: WBC (k/uL) Date Value 05/06/2022 1.98 (L) RBC (m/uL) Date Value 05/06/2022 2.23 (L) Hemoglobin (g/dL) Date Value 05/06/2022 7.4 (L) Hematocrit (%) Date Value 05/06/2022 23.3 (L) MCV (fL) Date Value 05/06/2022 104.5 (H) MCH (pg) Date Value 05/06/2022 33.2 MCHC (g/dL) Date Value 05/06/2022 31.8 RDW-CV (%) Date Value 05/06/2022 24.7 (H) Platelet Count (k/uL) Date Value 05/06/2022 65 (L) MPV (fL) Date Value 04/29/2022 14.1 (H) Glucose (mg/dL) Date Value 05/06/2022 132 (H) BUN (mg/dL) Date Value 05/06/2022 27 (H) Creatinine (mg/dL) Date Value 05/06/2022 1.97 (H) Sodium (mmol/L) Date Value 05/06/2022 141 Potassium (mmol/L) Date Value 05/06/2022 3.9 Chloride (mmol/L) Date Value 05/06/2022 102 CO2 (mmol/L) Date Value 05/06/2022 27 Protein, Total (g/dL) Date Value 05/06/2022 6.1 (L) Albumin (g/dL) Date Value 05/06/2022 3.9 Calcium, Total (mg/dL) Date Value 05/06/2022 8.5 Alkaline Phosphatase (U/L) Date Value 05/06/2022 87 Bilirubin, Total (mg/dL) Date Value 05/06/2022 0.7 AST (U/L) Date Value 05/06/2022 13 (L) ALT (U/L) Date Value 05/06/2022 25 Cholesterol, Total (mg/dL) Date Value 06/27/2005 153 Triglyceride (mg/dL) Date Value 06/27/2005 144 DIAGNOSIS: (D46.9) MDS (myelodysplastic syndrome) (HCC) (primary encounter diagnosis) (N18.4, D63.1) Anemia of chronic renal failure, stage 4 (severe) (HCC) Plan: DISCONTINUED: epoetin larisa-epbx 80,000 Units injection (RETACRIT) (E83.111) 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 transfusions (N18.4) CRF (chronic renal failure), stage 4 (severe) (HCC) Plan: DISCONTINUED: epoetin larisa-epbx 80,000 Units injection (RETACRIT) PAST MEDICAL HISTORY Diagnosis Date Anemia Anemia of chronic renal failure, stage 4 (severe) (HCC) 08/23/2020 Atrial fibrillation (HCC) Chronic kidney disease CRF (chronic renal failure), stage 4 (severe) (HCC) 08/23/2020 Diabetes mellitus (HCC) GI bleed Hypertension 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 loss 06/15/2020 Leukopenia Sleep apnea Thrombocytopenia (HCC) PAST SURGICAL HISTORY Procedure Laterality Date COLONOSCOPY Social History Tobacco Use Smoking status: Former Types: Pipe Quit date: 1994 Years since quittin.7 Passive exposure: Past Smokeless tobacco: Never Vaping Use Vaping Use: Never used Substance Use Topics Alcohol use: Not Currently Drug use: Not Currently I spent a total of 35 minutes on the date of the service which included preparing to see the patient, [id number] patient care, completing clinical documentation, obtaining and/or reviewing separately obtained history, performing a medically appropriate examination, counseling and educating the patient/family/caregiver, ordering medications, tests, or procedures, communicating with other HCPs (not separately reported), and independently interpreting results (not separately reported). Asher Hummel MD, CPE Hematology and Oncology Services Provided at: [place], [place] CC: Dr. Flash Gomez (Cardiology [facility] [place]) MD Elysia Merlos MD documented in this encounter [facility] 04-29-2022 Miscellaneous Notes Lucero Jack calling from [facility]. States that they received pt's specimen. Needs to clarify if this is bone marrow or peripheral blood. Per Nicki Aguila in lab, bone marrow aspirate was submitted to [facility]. Lucero notified of the above and verbalizes understanding. No additional questions noted. Angle Kamara RN documented in this encounter [facility] 04-29-2022 Note [facility] 04-29-2022 Note [facility] 04-29-2022 History of Present illness Narrative Pt is unable to receive retacrit today d/t it not being authorized by insurance since it has only been 7 days. Per pharmacy. Pharmacy requesting to get retacrit authorized weekly. Pt made aware. Will keep next appointment. documented in this encounter [facility] 04-29-2022 Instructions Asher Hummel MD - 04/29/2022 1:07 PM EDT Retacrit today and weekly for Hgb < 12 RTC in 1 week, labs and review BMBx results. documented in this encounter [facility] 04-29-2022 History of Present illness Narrative Images from the original note were not included. NAME: Sandip Broussard CLINIC NO.: [id number] DATE OF SERVICE: April 29, 2022 (Estephanie) Some elements in this clinic note that are critical to medical decision making have been carefully reviewed and included from a prior clinic note dated: April 22 2022 (Lori) Referring Provider: Dr. Flash Pearl Additional Clinicians involved in Sandip Broussard's care: Dr. José Luis Velasquez, Dr. Oumou Wade CC: Follow up ASSESSMENT: 81 year old year old man with MDS, stage 4 chronic kidney disease and iron deficiency anemia d/t GI blood loss (seen on capsule endoscopy) and epistaxis. Was receiving high dose EPO every 2 weeks with periodic iron infusions. With persisting cytopenia we started him on Vidaza low dose to see if we could positively impact his pancytopenia and reduce his fatigue as well as his Epo usage. Unfortunately he suffered an acute [place] 11/23/2021 and also developed another GI bleed. He was transfused, and medically managed after catheterization. 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 He has been requiring transfusion of PRBCs every 3-4 weeks. At this time there is question if he is responding to vidaza. He was seen by Dr. Esposito (her input is much appreciated) who recommended increasing his reticrit to weekly, which he will receive today, attempt to transfuse to keep his hgb >8 due to his CHF history, and proceed with repeat bone marrow biopsy (scheduled for 04/25/22), and get hematologic NGS on him. PLAN: Retacrit today and weekly for Hgb < 12 RTC in 1 week, labs and review BMBx results. TREATMENT TO DATE: 3. 07/09/2021 - 04/08/2022: Vidaza D1-5 q 28. 2. Retacrit 80,000 units every other week 1. Intermittent IV Iron HPI: Updated Visit, April 29, 2022: Lloyd returns and has ongoing cytopenias. Awaiting bone marrow biopsy results. Will continue retacrit weekly. No need for transfusion today. Updated Visit, April 22, 2022: Patient saw Dr. Esposito (recommendations are above). Feels about the same. Hgb today is 7.5 Bone marrow scheduled for 04/25/22 Updated Visit, April 08, 2022: Hgb 8.1 today after transfusion 5 days ago. Due to See Dr. Esposito next 04/18/2022 Will cancel Vidaza for now. Continue aranesp Maintain transfusion support. Updated Visit, March 11, 2022: Unfortunately Lloyd is not maintaining any response to single agent Vidaza and remains transfusion dependent. I spoke with him and his his about seeking an opinion downtown with our Leukemia group as well as Hospice. It was a tearfu meeting as lissette is significantly younger than Lloyd. Updated Visit, February 11, 2022: Patient received 2 units of PRBC on 02/05/22 for hgb of 6.8. Saw cardiology today no changes. Denies any fevers, chill, nausea or vomiting. Overall, other than his normal fatigue, he feels well. Updated Visit, January 14, 2022: Lloyd in good spirit returns to continue treatments for MDS. I think we are making some progress as we haven't had to transfuse him in 4 weeks. WBC counts always start low at the beginning of each cycle but after D5, improve significantly. Hasn't been transfused for 4 weeks - anticipate need this week. Using BiPap and can sleep in bed now. Updated Visit, December 17, 2021: Lloyd is 81 years old and returns with his Lissette in follow-up. He feels much better having had several units transfused and now has a hemoglobin of 10.2. We revisited the discussion of pursuing treatment versus hospice and he is still indeterminant. We discussed pursuing a few more cycles and then reconsidering at that time. He does have some evidence of improvement with improving white blood cell count as well as platelet count improvement. He feels really good following his transfusion and wishes to proceed. Updated Visit, November 29, 2021: Lloyd returns unfortunately had Afib and heart failure with AMI and significant MV regurg. Fatigued. Will consider Hospice. Hold treatment for now and reconsider in 3-4 weeks. Also recovering from pneumonia. Reviewed outside records. Updated Visit, October 25, 2021: Sandip Broussard returns for scheduled follow up. He states that he is feeling slow . He has shortness of breath all the time. He denies any dizziness. He denies any abnormal blood loss. Updated Visit, October 01, 2021: Lloyd is 80 years old and returns with his Lissette for treatment with low-dose Vidaza. He appears to be having some response with improving platelet counts. His only complaints are that of increased abdominal gas. He is otherwise doing well. Continue Retacrit and treatment as recommended. He is safe to proceed. Sees ENT next week No more nose bleeds after stopping Eliquis. Updated Visit, September 17, 2021: Sandip Broussard returns for scheduled follow-up. Since his last visit there has been no significant medical changes. He denies bleeding and abnormal bruising. He denies fevers, chills, night sweats and signs/symptoms of infection. Overall, he feels fairly well. Updated Visit, September 03, 2021: BP improved. Labs stable and platelets have recovered. Was transfused last week and feels better. Neutropenia is disease related and we will continue with treatment. Continue retacrit as Ordered. Transfuse periodically. Updated Visit, August 24, 2021: Lloyd returns today prior to Retacrit during his 2 weeks following Vidaza. Has been having some pain at the base of his skull and is having some dizziness. BP is low - stop Norvasc and Hytrin, and hold Aldactone for now. It is their anniversary today - 49th! Updated Visit, August 06, 2021: Lloyd returns today for follow up and cycle 2 of vidaza. Feeling well. Ran out of his diuretic for a week and had some JANG. Was able to get his medications refilled and is feeling better now. No swelling, chest pain, dizziness, fever, chills or other concerning symptoms. Updated Visit, July 19, 2021: Sandip Broussard returns for follow-up. He received his first cycle of Vidaza 07/09/2021 through 07/13/2021. Overall, he tolerated treatment well without any side effects. He is doing well today and offers no new particular complaints. Updated Visit, July 09, 2021: Hasn't required transfusion since 06/2020. Still profoundly anemic despite adequate dosing of aranesp for CKD. Will proceed with low dose Vidaza. Reviewed plan and goals again. Updated Visit, May 31, 2021: EPO was increased to 80,000 units about 2 weeks ago. Feels the same. reports he still spends most of his day on the couch napping. Patient denies any bleeding. Does have diarrhea, which he has had for over 3 months. 2 loose stools a day. Afraid to go places because of the urgency a/w it. Patient denies bleeding. Does not want to see GI at this time. Has not taken anything for it. No new medications. Updated Visit, May 02, 2021: Lloyd returns with his Lissette and reports that he can't exert himself too much but can get out to the barn and doesn't get dizzy anymore. Still not responding as robustly to increased EPO, so will increase to 80k every 2 weeks. Updated Visit, March 07, 2021: Lloyd returns with his Lissette and was seen by Dr. Wade approximately 1 week ago from ENT. Patient was a little bit confused on instructions given and so I reviewed the recommendations and clarified for Lloyd exactly what his regimen should be. This includes stopping Eliquis as well as aspirin. He appears to be stable from a laboratory perspective but continues to have low platelets and generalized pancytopenia. We discussed again, the goal of his treatment and interventions to be palliative as he requested. He feels well today. Updated Visit, February 21, 2021: Nose bleed Friday- ER plugged it up but then went back on Friday hospitalized until this morning Still seeping blood. Operated on nose- surgery w/ Dr. Marshall Last fall in [place]. Has tranexamic acid at home. Requesting ENT referral at [facility]. He is dehydrated and not keeping up with fluids. Partition Setter is elevated exacerbating cause was likely letting his CPAP reservoir go dry. Ferritin is coming down. Updated Visit, January 10, 2021: Lloyd is here for follow up. After review of his chart, he has stage IV ckd and presented with pancytopenia, including significant anemia requiring transfusion due to GI bleeding and nose bleeds. 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 He has received IV iron in the past along with retacrit, which he is currently receiving every other week. Current goal is quality of life with the least amount visits. He did just have a nose bleed on Friday, and it didn't last long. He made his own plug and kept it in his nose for 24 hours and no additional bleeding. He is taking his eliquis one pill daily, but he held it the last two days due to the nose bleed. He is not on aspirin. Overall he feels well and offers no complaints of significant fatigue, shortness of breath, cough, fever, chills or signs of infections. Updated Visit, November 15, 2020: Sandip Broussard returns for follow-up. He remains on Retacrit 40,000 units every 2 weeks and is tolerating it well. Recently he has noticed pain in the back of his neck. He experienced this same pain when his hemoglobin was low in the past. He states that he takes Tylenol with improvement in the pain. He denies any signs of bleeding. He states that his bruising is better. He is still taking the Eliquis daily at the recommendation of his fashion model. Since stopping the aspirin he has not had any further nosebleeds. He denies fevers, chills, night sweats and signs/symptoms of infection. He has persistent exertional shortness of breath. Updated Visit, September 20, 2020: Lloyd is 79 and returns with his Lissette for discussion on his overall condition as well as his rec to have watchman for A-fib. However, our discussion reveals that he really doesn't want to do anything and that he also doesn't want to take full dose anticoagulation. I pressed him and verified that his goals were to focus on quality of life and get minimally involved in medical procedures. We will continue to monitor his counts and transfuse or give iron and retacrit as necessary, but minimize his follow ups. Updated Visit, August 23, 2020: Lloyd is 79 years old and returns with his Lissette today for multifactorial anemia. His GI bleed was finally found and addressed. They brought in a cake to share in their celebration of their anniversary and Nicki's birthday. He reports that he is no longer lightheaded. Still some fatigue. Now will need Aranesp replacement and iron x 1. He may need low dose dacogen in the future if he is unresponsive. Updated visit, July 26, 2020: Lloyd is 79 years old and returns with his Lissette today having had a capsule endoscopy which was positive for GI bleed. This was stopped and he is now recovering from his blood loss anemia. We will continue supporting him with IV iron as needed but for now we will hold off he will continue need B12 and folic acid. He still has underlying myelodysplasia and stage IV chronic kidney disease which is contributing to his anemia but Corine is not bleeding any longer. Updated Visit, July 03, 2020: Lloyd is 79 years old and returns with his Lissette again requiring additional transfusions because of significantly low hemoglobin. I reviewed his bone marrow biopsy with him which is consistent with myelodysplastic syndrome but he has ongoing melena that is highly suspicious for a GI bleed. To date his endoscopic work-up has been negative but he is due to have a capsule endoscopy that hopefully will reveal the cause of his cytopenias. He feels weak and is in a wheelchair today. Updated Visit, June 15, 2020: Conducted by telephone. Sandip Broussard is a 79 year old male seen for pancytopenia recently having had bone marrow biopsy that is most consistent with. 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 Hopefully his iron deficiency can be corrected and perhaps any evidence of GI bleeding can be attenuated. He sees gastroenterology next week. He may need transfusion support before the weekend even though he was just transfused his 17th unit 2 days ago. I reviewed his bone marrow biopsy results with him and his Lissette in some detail. His erythropoietin level is markedly elevated indicating that supplementation would not help and that his renal failure is not contributing to his anemia. Initial Visit, May 29, 2020: Sandip Broussard presents today Hematology and Oncology evaluation. He is a 79 year old male who is accompanied by his Lissette on urgent referral from Dr. Flash Pearl for pancytopenia, hemoglobin of 5 with both recent EGD and colonoscopy demonstrating no evidence of active bleeding but slight chronic gastritis. He also had several epistaxes as blood to the point of requiring transfusions causing lightheadedness and unsteadiness. Patient states he has had black stools since July 2019. So far extensive work-up has been unrevealing. He has had recent hospitalization and was released on 05/26/2020. Full work-up at that time revealed an adequate erythropoietin response despite elevated creatinine and stage III chronic kidney disease. However his white blood cell count remains suppressed as does his platelet count of less than 100,000. Indeed, his epistaxis may be the cause of his melanotic stools but warrants another look and additionally he will need a bone marrow biopsy. His coags are normal. His red blood cell indices only indicate hypochromasia and macrocytosis. Patient had a bleeding scan that was negative as well. REVIEW OF SYSTEMS Per HPI and otherwise negative by full review of organ systems. ECOG PERFORMANCE STATUS: 1 PHYSICAL EXAMINATION: Vitals: BP 119/64 Pulse 55 Temp (Src) 97.8 (Temporal) Resp 20 Ht 5' 5.787 (1.67m) Wt 240 lb 3.2 oz (109.0kg) SpO2 92[O2 @ 2L]% BMI 39.02 kg/(m^2). Body surface area is 2.25 meters squared. Exam limited to gross visualization where appropriate. Gen.: This is an age-appropriate patient in no acute distress. Head: Appears atraumatic with no visible lesions. Eyes: Pupils equally round and reactive to light, extraocular muscles are intact. Neck: Supple. Mouth: Masked. Respiratory: Appears to be respiring comfortably. Neurologic: Nonfocal to gross visualization. Alert and oriented 3. Psychiatric: No evidence of inappropriate anxiety or depression. Skin: Visible areas of skin without rash, lesions, wounds or petechiae. ALLERGIES: ALLERGIES Allergen Reactions Bee Stings [Other] large hives, swelling at site Coreg [Carvedilol] Hives MEDICATIONS: bumetanide (BUMEX) 1 mg tablet 2 mg. potassium chloride SR (MICRO-K) 10 mEq CR capsule ciprofloxacin HCl (CIPRO) 500 mg tablet Take 500 mg by mouth once daily. FARXIGA 10 mg tablet metoprolol succinate ER (TOPROL XL) 25 mg 24 hr tablet Take 25 mg by mouth once daily. spironolactone (ALDACTONE) 25 mg tablet Take 25 mg by mouth once daily. aspirin 81 mg chewable tablet CHEW 1 TABLET BY MOUTH EVERY DAY terazosin (HYTRIN) 5 mg capsule Take 5 mg by mouth daily at bedtime. Omeprazole-Sodium Bicarbonate 40-1,680 mg pack Take by mouth. sucralfate (CARAFATE) 1 gram tablet Take 1 g by mouth four times daily. [facility] NASAL OINTMENT Apply to affected area twice daily. atorvastatin (LIPITOR) 20 mg tablet Take 1 tablet by mouth daily at bedtime. colchicine 0.6 mg tablet Take 0.6 mg by mouth as needed. As needed 1-2 times/week lisinopril (ZESTRIL, PRINIVIL) 10 mg tablet Take 1 tablet by mouth once daily. Please resume this medication after PCP follow up ONETOUCH DELICA PLUS LANCET 33 gauge glipiZIDE (GLUCOTROL) 5 mg tablet Take 5 mg by mouth once daily. ONETOUCH ULTRA BLUE TEST STRIP test strip cholecalciferol (VITAMIN D3) 1,000 unit tab tablet 1,000 Units once daily. Only taking 500 units LABORATORY VALUES: WBC (k/uL) Date Value 04/25/2022 2.35 (L) RBC (m/uL) Date Value 04/25/2022 2.81 (L) Hemoglobin (g/dL) Date Value 04/25/2022 9.0 (L) Hematocrit (%) Date Value 04/25/2022 28.2 (L) MCV (fL) Date Value 04/25/2022 100.4 (H) MCH (pg) Date Value 04/25/2022 32.0 MCHC (g/dL) Date Value 04/25/2022 31.9 RDW-CV (%) Date Value 04/25/2022 25.2 (H) Platelet Count (k/uL) Date Value 04/25/2022 77 (L) MPV (fL) Date Value 04/15/2022 13.7 (H) Glucose (mg/dL) Date Value 04/25/2022 127 (H) BUN (mg/dL) Date Value 04/25/2022 29 (H) Creatinine (mg/dL) Date Value 04/25/2022 1.79 (H) Sodium (mmol/L) Date Value 04/25/2022 143 Potassium (mmol/L) Date Value 04/25/2022 4.3 Chloride (mmol/L) Date Value 04/25/2022 104 CO2 (mmol/L) Date Value 04/25/2022 29 Protein, Total (g/dL) Date Value 04/25/2022 6.1 (L) Albumin (g/dL) Date Value 04/25/2022 4.0 Calcium, Total (mg/dL) Date Value 04/25/2022 8.9 Alkaline Phosphatase (U/L) Date Value 04/25/2022 83 Bilirubin, Total (mg/dL) Date Value 04/25/2022 1.0 AST (U/L) Date Value 04/25/2022 17 ALT (U/L) Date Value 04/25/2022 31 Cholesterol, Total (mg/dL) Date Value 06/27/2005 153 Triglyceride (mg/dL) Date Value 06/27/2005 144 DIAGNOSIS: (D46.9) Myelodysplastic syndrome (HCC) (primary encounter diagnosis) (N18.4) CRF (chronic renal failure), stage 4 (severe) (HCC) (N18.4, D63.1) Anemia of chronic renal failure, stage 4 (severe) (HCC) PAST MEDICAL HISTORY Diagnosis Date Anemia Anemia of chronic renal failure, stage 4 (severe) (HCC) 08/23/2020 Atrial fibrillation (HCC) Chronic kidney disease CRF (chronic renal failure), stage 4 (severe) (HCC) 08/23/2020 Diabetes mellitus (HCC) GI bleed Hypertension 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 loss 06/15/2020 Leukopenia Sleep apnea Thrombocytopenia (HCC) PAST SURGICAL HISTORY Procedure Laterality Date COLONOSCOPY Social History Tobacco Use Smoking status: Former Types: Pipe Quit date: 1994 Years since quittin.7 Passive exposure: Past Smokeless tobacco: Never Vaping Use Vaping Use: Never used Substance Use Topics Alcohol use: Not Currently Drug use: Not Currently I spent a total of 20 minutes on the date of the service which included preparing to see the patient, [id number] patient care, obtaining and/or reviewing separately obtained history, ordering medications, tests, or procedures, and independently interpreting results (not separately reported). Asher Hummel MD, CPE Hematology and Oncology Services Provided at: [place], [place] CC: Dr. Flash Gomez (Cardiology [facility] [place]) MD Elysia Merlos MD documented in this encounter [facility] 04-25-2022 Note [facility] 04-25-2022 Note [facility] 04-25-2022 History of Present illness Narrative BONE MARROW PROCEDURE NOTE-HEMATOLOGY & MEDICAL ONCOLOGY Confirmed that informed consent for Bone Marrow Biopsy was obtained by Asher Hummel MD on 8:39 AM. UNIVERSAL PROTOCOL / SAFETY CHECKLIST Procedure to be Performed: bone marrow Biopsy and aspirate Sign In: A Moment of CARE was completed. Personnel directly involved with the procedure wore the appropriate PPE (Personal Protective Equipment). Patient/Surrogate Stated/Verified: PATIENT VERIFIED(optional for EMERGENT procedures): Patient name, Date of , Relevant allergies, and The intended procedure Time Out Communication: Intended patient and procedure match the source documents. Consent documented and matches the intended procedure. Sign Out: SIGN OUT (optional for EMERGENT procedures): All specimen containers correctly labeled. Asher Hummel MD Personnel present: Asher Hummel MD, medical laboratory scientist. Bone marrow aspiration: Unilateral was obtained. Bone marrow biopsy was obtained: unilateral Position: Left lateral decubitis. The site(s) right Posterior Superior Iliac Crest was prepped with Betadine solution and draped in sterile fashion. 10 mls of 1% Lidocaine given as local anesthesia. Using aseptic technique, bone marrow aspiration performed. Samples obtained for: Routine analysis Cytogenetics Flow cytometry FLT3 mutational status Clinical Trial A touch prep was taken: Yes Core biopsy was obtained Pressure dressing applied to Bone Marrow site(s). Hemostasis maintained. Pt tolerated procedure and was in stable condition at the end of the procedure. Post Procedure: Time:8:35 Post-procedure care reviewed and explained to: patient and Lissette Patient to call with any complaints of redness, swelling, increased or unresolved pain, bleeding, chills, bruising, and/or fever. Patient verbalizes understanding. Complications: none Electronically Signed By: Asher Hummel MD In Department: Hematology/Oncology documented in this encounter [facility] 04-23-2022 Miscellaneous Notes signed Brynn/Wilfred: Order for Foundation One Heme pended (MISC test). Angle Kamara RN Patient coming in on for bone marrow biopsy. Dr. Esposito recommended hemotologic NGS testing. Can you please pend that for Dr. Hummel to sign and make sure he gets it drawn when here for bmbx? Thanks. Radha Sandoval PA-C documented in this encounter [facility] 04-22-2022 Note [facility] 04-18-2022 Note [facility] 04-18-2022 Nurse Note Additional intake questions: Has the patient had fever, nausea, vomiting, diarrhea, constipation, fatigue for > 1 week? Yes, fatigue and Provider Notified Does the patient have a decreased appetite? No Does patient want to see a Raker Buffing Wheel? No (yes to any of above refer patient to schedulers for dietitian appointment) ) Does patient have any new or increased numbness or tingling of extremities? No Is patient interested in fertility information? No Does patient need any prescription refills? No Does patient have an advanced directive in place? Yes, no copy found in [facility] Patient referred to [facility] Electronically Signed By: Matt Christianson LPN documented in this encounter [facility] 04-18-2022 History of Present illness Narrative [place] [id number] [place] CLINIC NOTE NAME: SANDIP BROUSSARD CLINIC #: [id number] DATE: 04/18/2022 AGE: 81 PHYSICIAN: Elysia Esposito M.D. The patient is an 81-year-old gentleman with myelodysplastic syndrome who presents today for further opinion at the request of Dr. Hummel. ECOG PERFORMANCE STATUS: Two. The patient is accompanied by his . HISTORY OF PRESENT ILLNESS: Two years ago, the patient was noted to have low blood counts. There was concern that he had a leak in his small intestine. It took them a while to find it. However, they were able to fix it. Despite this, his hemoglobin remained low. He was seen by Dr. Hummel in 2019, and I believe this was around May. We do not have the report of the bone marrow aspirate and biopsy, but per notes this showed myelodysplastic syndrome and it looked like there were no increased blasts. At that time, he was started on 5 azacitidine 75 mg/m2 for 5 days with each cycle. He was also given Retacrit shots every 2 weeks with a dose increase as well as vitamin B12 monthly. More recently, he has become more heavily transfusion dependent. They are transfusing him when his hemoglobin is less than 7 and he has been getting almost 1 unit of blood every week. He denies any current bleeding or black stools. Given the lack of response to treatment since he has had about 9 cycles, his azacitidine was stopped, and he comes today here for further opinion. MEDICATIONS: Reviewed and are in Epic. ALLERGIES: Bee stings and Coreg, both give him swelling and hives. PAST MEDICAL AND SURGICAL HISTORY: 1. Congestive heart failure, 2. chronic kidney disease 3. Hypertension 4. diabetes. His sugars most recently have been up and down and he has been following with his primary care physician, 5. irregular heartbeat 6. leaking cardiac valve. 7. Bilateral cataracts and stents in each eye. 8. History of heart attack in 1995 and again more recently in October 2021. 9. History of multiple cardiac stents. 10. He has a history of using a pipe, but is not using this currently. SOCIAL HISTORY: He has been for 49 years. He has 1 son who works as a senior ezTaxi specialist at [employer]. He had a big family of 10. 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 REVIEW OF SYSTEMS: No headaches or double vision. Some sensitivity with sunlight. Some shortness of breath with minimal activity. No bleeding. He does note that when his hemoglobin is in the 9 range that he is able to walk much better and goes reasonable distances. Currently, he is not able to do daily activities such as groceries or laundry. EXPOSURE HISTORY: No history of radiation or chemical exposure. PHYSICAL EXAMINATION: He is a frail-appearing gentleman. Vitals are reviewed and are in Epic. HEENT: Sclerae anicteric. Neck: Supple. Lungs: Clear to auscultation bilaterally. Heart: Irregularly irregular with a 2/6 systolic murmur. Abdomen: Soft, nontender, no organomegaly. Extremities: Minimal edema. Skin: He has some bruising. LABORATORY VALUES: Reviewed and are in Epic. IMPRESSION AND PLAN: Myelodysplastic syndrome. I have discussed the diagnosis, prognosis, and treatment options as well as natural history. 1. We need to obtain a repeat bone marrow aspirate and biopsy to reassess the current status of his disease and see if he has progressed to a more advanced form. This will be critical in terms of making decisions and plan of care given his other comorbidities and functional status. 2. On this bone marrow, I would also recommend repeating a next generation sequencing panel. 3. Given his significant transfusion needs, we will need to talk about iron chelation therapy. However, we will make further decisions about this once we have reviewed his current bone marrow since this would effect prognosis and I will also touch base with my pharmacy colleagues given his history of increased creatinine to see which medication would be the safest if we decide to proceed. 4. Low-dose decitabine (0.2 mg/kg twice a week) may be a reasonable option if his blast count is not going up but I would like to see his bone marrow prior to making final decisions 5. I would recommend transfusing for hemoglobin less than or equal to 8.5 if possible to help improve his functional status. I will review all my recommendations with Dr. Hummel and the patient will have a telephone visit with us after his bone marrow is done and resulted locally. Elysia Esposito M.D. [id number] /[id number] documented in this encounter [facility] 04-15-2022 Miscellaneous Notes Discussed w/ Wilfred. No transfusion advised at this time. If pt's hgb drops below 7 by , we can arrange for a transfusion to be done locally at that time. Pt's spouse notified and verbalizes understanding. Angle Kamara RN Pt in for lab draw/results. Hgb 7.9. pt is SOB per usual and remains on . of patient is concerned that pt will need a blood transfusion by and if he is going to need a blood transfusion would like to have it prior to . [facility] on . It would be too long of a day too far from home. They want to receive a blood transfusion at [facility]. They are concerned that patient may drop further prior to and want a transfusion if needed before appointment. Please advise and set up transfusion at [place] and call pt if needed. Thank you. documented in this encounter [facility] 04-15-2022 Nurse Note Labs reviewed with patient and questions answers/discussion about possible transfusion. See telephone encounter. documented in this encounter [facility] 04-08-2022 Note [facility] 04-08-2022 Instructions Asher Hummel MD - 04/08/2022 3:14 PM EDT Labs on Friday Transfuse if Hgb is 7.0 or patient is symptomatic Aranesp and B12 today Keep appointment with Dr. Esposito 04/18/2022 RTC in 2 weeks with labs same day. documented in this encounter [facility] 04-08-2022 History of Present illness Narrative Images from the original note were not included. NAME: Sandip Broussard CLINIC NO.: [id number] DATE OF SERVICE: April 08, 2022 Some elements in this clinic note that are critical to medical decision making have been carefully reviewed and included from a prior clinic note dated: March 11, 2022 Referring Provider: Dr. Flash Pearl Additional Clinicians involved in Sandip Broussard's care: Dr. José Luis Velasquez, Dr. Oumou Wade CC: Follow up ASSESSMENT: 81 year old year old man with MDS, stage 4 chronic kidney disease and iron deficiency anemia d/t GI blood loss (seen on capsule endoscopy) and epistaxis. Was receiving high dose EPO every 2 weeks with periodic iron infusions. With persisting cytopenia we started him on Vidaza low dose to see if we can positively impact his pancytopenia and reduce his fatigue as well as his Epo usage. Unfortunately he suffered an acute [place] 11/23/2021 and also developed another GI bleed. He was transfused, and medically managed after catheterization. 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 He has been requiring transfusion of PRBCs every 3-4 weeks. He is here for cycle 8 of vidaza. His counts are overall stable. Appears his WBC is consistently low on day 1 and seems to improve after day 5. Will continue with B12 today and monthly and reticrit every 2 weeks. He requires weekly labs as well. He will return in 4 weeks for cycle 10 but I also will seek a second opinion from our leukemia group downtown. PLAN: Labs on Friday Transfuse if Hgb is 7.0 or patient is symptomatic Aranesp and B12 today Keep appointment with Dr. Esposito 04/18/2022 RTC in 2 weeks with labs same day. TREATMENT TO DATE: 3. 07/09/2021 - 04/08/2022: Vidaza D1-5 q 28. 2. Retacrit 80,000 units every other week 1. Intermittent IV Iron HPI: Updated Visit, April 08, 2022: Hgb 8.1 today after transfusion 5 days ago. Due to See Dr. Esposito next 04/18/2022 Will cancel Vidaza for now. Continue aranesp Maintain transfusion support. Updated Visit, March 11, 2022: Unfortunately Lloyd is not maintaining any response to single agent Vidaza and remains transfusion dependent. I spoke with him and his his about seeking an opinion downtown with our Leukemia group as well as Hospice. It was a tearfu meeting as lissette is significantly younger than Lloyd. Updated Visit, February 11, 2022: Patient received 2 units of PRBC on 02/05/22 for hgb of 6.8. Saw cardiology today no changes. Denies any fevers, chill, nausea or vomiting. Overall, other than his normal fatigue, he feels well. Updated Visit, January 14, 2022: Lloyd in good spirit returns to continue treatments for MDS. I think we are making some progress as we haven't had to transfuse him in 4 weeks. WBC counts always start low at the beginning of each cycle but after D5, improve significantly. Hasn't been transfused for 4 weeks - anticipate need this week. Using BiPap and can sleep in bed now. Updated Visit, December 17, 2021: Lloyd is 81 years old and returns with his Lissette in follow-up. He feels much better having had several units transfused and now has a hemoglobin of 10.2. We revisited the discussion of pursuing treatment versus hospice and he is still indeterminant. We discussed pursuing a few more cycles and then reconsidering at that time. He does have some evidence of improvement with improving white blood cell count as well as platelet count improvement. He feels really good following his transfusion and wishes to proceed. Updated Visit, November 29, 2021: Lloyd returns unfortunately had Afib and heart failure with AMI and significant MV regurg. Fatigued. Will consider Hospice. Hold treatment for now and reconsider in 3-4 weeks. Also recovering from pneumonia. Reviewed outside records. Updated Visit, October 25, 2021: Sandip Broussard returns for scheduled follow up. He states that he is feeling slow . He has shortness of breath all the time. He denies any dizziness. He denies any abnormal blood loss. Updated Visit, October 01, 2021: Lloyd is 80 years old and returns with his Lissette for treatment with low-dose Vidaza. He appears to be having some response with improving platelet counts. His only complaints are that of increased abdominal gas. He is otherwise doing well. Continue Retacrit and treatment as recommended. He is safe to proceed. Sees ENT next week No more nose bleeds after stopping Eliquis. Updated Visit, September 17, 2021: Sandip Broussard returns for scheduled follow-up. Since his last visit there has been no significant medical changes. He denies bleeding and abnormal bruising. He denies fevers, chills, night sweats and signs/symptoms of infection. Overall, he feels fairly well. Updated Visit, September 03, 2021: BP improved. Labs stable and platelets have recovered. Was transfused last week and feels better. Neutropenia is disease related and we will continue with treatment. Continue retacrit as Ordered. Transfuse periodically. Updated Visit, August 24, 2021: Lloyd returns today prior to Retacrit during his 2 weeks following Vidaza. Has been having some pain at the base of his skull and is having some dizziness. BP is low - stop Norvasc and Hytrin, and hold Aldactone for now. It is their anniversary today - 49! Updated Visit, August 06, 2021: Lloyd returns today for follow up and cycle 2 of vidaza. Feeling well. Ran out of his diuretic for a week and had some JANG. Was able to get his medications refilled and is feeling better now. No swelling, chest pain, dizziness, fever, chills or other concerning symptoms. Updated Visit, July 19, 2021: Sandip Broussard returns for follow-up. He received his first cycle of Vidaza 07/09/2021 through 07/13/2021. Overall, he tolerated treatment well without any side effects. He is doing well today and offers no new particular complaints. Updated Visit, July 09, 2021: Hasn't required transfusion since 06/2020. Still profoundly anemic despite adequate dosing of aranesp for CKD. Will proceed with low dose Vidaza. Reviewed plan and goals again. Updated Visit, May 31, 2021: EPO was increased to 80,000 units about 2 weeks ago. Feels the same. reports he still spends most of his day on the couch napping. Patient denies any bleeding. Does have diarrhea, which he has had for over 3 months. 2 loose stools a day. Afraid to go places because of the urgency a/w it. Patient denies bleeding. Does not want to see GI at this time. Has not taken anything for it. No new medications. Updated Visit, May 02, 2021: Lloyd returns with his Lissette and reports that he can't exert himself too much but can get out to the barn and doesn't get dizzy anymore. Still not responding as robustly to increased EPO, so will increase to 80k every 2 weeks. Updated Visit, March 07, 2021: Lloyd returns with his Lissette and was seen by Dr. Wade approximately 1 week ago from ENT. Patient was a little bit confused on instructions given and so I reviewed the recommendations and clarified for Lloyd exactly what his regimen should be. This includes stopping Eliquis as well as aspirin. He appears to be stable from a laboratory perspective but continues to have low platelets and generalized pancytopenia. We discussed again, the goal of his treatment and interventions to be palliative as he requested. He feels well today. Updated Visit, February 21, 2021: Nose bleed Friday- ER plugged it up but then went back on Friday hospitalized until this morning Still seeping blood. Operated on nose- surgery w/ Dr. Marshall Last fall in [place]. Has tranexamic acid at home. Requesting ENT referral at [facility]. He is dehydrated and not keeping up with fluids. Partition Setter is elevated exacerbating cause was likely letting his CPAP reservoir go dry. Ferritin is coming down. Updated Visit, January 10, 2021: Lloyd is here for follow up. After review of his chart, he has stage IV ckd and presented with pancytopenia, including significant anemia requiring transfusion due to GI bleeding and nose bleeds. 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 He has received IV iron in the past along with retacrit, which he is currently receiving every other week. Current goal is quality of life with the least amount visits. He did just have a nose bleed on Friday, and it didn't last long. He made his own plug and kept it in his nose for 24 hours and no additional bleeding. He is taking his eliquis one pill daily, but he held it the last two days due to the nose bleed. He is not on aspirin. Overall he feels well and offers no complaints of significant fatigue, shortness of breath, cough, fever, chills or signs of infections. Updated Visit, November 15, 2020: Sandip Broussard returns for follow-up. He remains on Retacrit 40,000 units every 2 weeks and is tolerating it well. Recently he has noticed pain in the back of his neck. He experienced this same pain when his hemoglobin was low in the past. He states that he takes Tylenol with improvement in the pain. He denies any signs of bleeding. He states that his bruising is better. He is still taking the Eliquis daily at the recommendation of his fashion model. Since stopping the aspirin he has not had any further nosebleeds. He denies fevers, chills, night sweats and signs/symptoms of infection. He has persistent exertional shortness of breath. Updated Visit, September 20, 2020: Lloyd is 79 and returns with his Lissette for discussion on his overall condition as well as his rec to have watchman for A-fib. However, our discussion reveals that he really doesn't want to do anything and that he also doesn't want to take full dose anticoagulation. I pressed him and verified that his goals were to focus on quality of life and get minimally involved in medical procedures. We will continue to monitor his counts and transfuse or give iron and retacrit as necessary, but minimize his follow ups. Updated Visit, August 23, 2020: Lloyd is 79 years old and returns with his Lissette today for multifactorial anemia. His GI bleed was finally found and addressed. They brought in a cake to share in their celebration of their anniversary and Nicki's birthday. He reports that he is no longer lightheaded. Still some fatigue. Now will need Aranesp replacement and iron x 1. He may need low dose dacogen in the future if he is unresponsive. Updated visit, July 26, 2020: Lloyd is 79 years old and returns with his Lissette today having had a capsule endoscopy which was positive for GI bleed. This was stopped and he is now recovering from his blood loss anemia. We will continue supporting him with IV iron as needed but for now we will hold off he will continue need B12 and folic acid. He still has underlying myelodysplasia and stage IV chronic kidney disease which is contributing to his anemia but Corine is not bleeding any longer. Updated Visit, July 03, 2020: Lloyd is 79 years old and returns with his Lissette again requiring additional transfusions because of significantly low hemoglobin. I reviewed his bone marrow biopsy with him which is consistent with myelodysplastic syndrome but he has ongoing melena that is highly suspicious for a GI bleed. To date his endoscopic work-up has been negative but he is due to have a capsule endoscopy that hopefully will reveal the cause of his cytopenias. He feels weak and is in a wheelchair today. Updated Visit, June 15, 2020: Conducted by telephone. Sandip Broussard is a 79 year old male seen for pancytopenia recently having had bone marrow biopsy that is most consistent with. 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 Hopefully his iron deficiency can be corrected and perhaps any evidence of GI bleeding can be attenuated. He sees gastroenterology next week. He may need transfusion support before the weekend even though he was just transfused his 17th unit 2 days ago. I reviewed his bone marrow biopsy results with him and his Lissette in some detail. His erythropoietin level is markedly elevated indicating that supplementation would not help and that his renal failure is not contributing to his anemia. Initial Visit, May 29, 2020: Sandip Broussard presents today Hematology and Oncology evaluation. He is a 79 year old male who is accompanied by his Lissette on urgent referral from Dr. Flash Pearl for pancytopenia, hemoglobin of 5 with both recent EGD and colonoscopy demonstrating no evidence of active bleeding but slight chronic gastritis. He also had several epistaxes as blood to the point of requiring transfusions causing lightheadedness and unsteadiness. Patient states he has had black stools since July 2019. So far extensive work-up has been unrevealing. He has had recent hospitalization and was released on 05/26/2020. Full work-up at that time revealed an adequate erythropoietin response despite elevated creatinine and stage III chronic kidney disease. However his white blood cell count remains suppressed as does his platelet count of less than 100,000. Indeed, his epistaxis may be the cause of his melanotic stools but warrants another look and additionally he will need a bone marrow biopsy. His coags are normal. His red blood cell indices only indicate hypochromasia and macrocytosis. Patient had a bleeding scan that was negative as well. REVIEW OF SYSTEMS Per HPI and otherwise negative by full review of organ systems. ECOG PERFORMANCE STATUS: 1 PHYSICAL EXAMINATION: Vitals: BP 99/62 Pulse 65 Temp (Src) 97.3 (Temporal) Resp 16 Ht 5' 5.039 (1.65m) Wt 245 lb 9.6 oz (111.4kg) SpO2 94[O2 @ 2L]% BMI 40.82 kg/(m^2). Body surface area is 2.26 meters squared. Exam limited to gross visualization where appropriate due to COVID-19. Gen.: This is an age-appropriate patient in no acute distress. Head: Appears atraumatic with no visible lesions. Eyes: Pupils equally round and reactive to light, extraocular muscles are intact. Neck: Supple. Mouth: Masked. Respiratory: Appears to be respiring comfortably. Neurologic: Nonfocal to gross visualization. Alert and oriented 3. Psychiatric: No evidence of inappropriate anxiety or depression. Skin: Visible areas of skin without rash, lesions, wounds or petechiae. ALLERGIES: ALLERGIES Allergen Reactions Bee Stings [Other] large hives, swelling at site Coreg [Carvedilol] Hives MEDICATIONS: bumetanide (BUMEX) 1 mg tablet 2 mg. potassium chloride SR (MICRO-K) 10 mEq CR capsule ciprofloxacin HCl (CIPRO) 500 mg tablet Take 500 mg by mouth once daily. FARXIGA 10 mg tablet metoprolol succinate ER (TOPROL XL) 25 mg 24 hr tablet Take 25 mg by mouth once daily. spironolactone (ALDACTONE) 25 mg tablet Take 25 mg by mouth once daily. aspirin 81 mg chewable tablet CHEW 1 TABLET BY MOUTH EVERY DAY terazosin (HYTRIN) 5 mg capsule Take 5 mg by mouth daily at bedtime. Omeprazole-Sodium Bicarbonate 40-1,680 mg pack Take by mouth. sucralfate (CARAFATE) 1 gram tablet Take 1 g by mouth four times daily. [facility] NASAL OINTMENT Apply to affected area twice daily. atorvastatin (LIPITOR) 20 mg tablet Take 1 tablet by mouth daily at bedtime. colchicine 0.6 mg tablet Take 0.6 mg by mouth as needed. As needed 1-2 times/week lisinopril (ZESTRIL, PRINIVIL) 10 mg tablet Take 1 tablet by mouth once daily. Please resume this medication after PCP follow up ONETOUCH DELICA PLUS LANCET 33 gauge glipiZIDE (GLUCOTROL) 5 mg tablet Take 5 mg by mouth once daily. ONETOUCH ULTRA BLUE TEST STRIP test strip cholecalciferol (VITAMIN D3) 1,000 unit tab tablet 1,000 Units once daily. Only taking 500 units LABORATORY VALUES: WBC (k/uL) Date Value 04/08/2022 1.81 (L) RBC (m/uL) Date Value 04/08/2022 2.49 (L) Hemoglobin (g/dL) Date Value 04/08/2022 8.1 (L) Hematocrit (%) Date Value 04/08/2022 25.8 (L) MCV (fL) Date Value 04/08/2022 103.6 (H) MCH (pg) Date Value 04/08/2022 32.5 MCHC (g/dL) Date Value 04/08/2022 31.4 RDW-CV (%) Date Value 04/08/2022 24.5 (H) Platelet Count (k/uL) Date Value 04/08/2022 129 (L) MPV (fL) Date Value 04/08/2022 13.8 (H) Glucose (mg/dL) Date Value 04/08/2022 221 (H) BUN (mg/dL) Date Value 04/08/2022 24 Creatinine (mg/dL) Date Value 04/08/2022 1.84 (H) Sodium (mmol/L) Date Value 04/08/2022 142 Potassium (mmol/L) Date Value 04/08/2022 4.2 Chloride (mmol/L) Date Value 04/08/2022 106 (H) CO2 (mmol/L) Date Value 04/08/2022 29 Protein, Total (g/dL) Date Value 04/08/2022 5.9 (L) Albumin (g/dL) Date Value 04/08/2022 3.9 Calcium, Total (mg/dL) Date Value 04/08/2022 8.9 Alkaline Phosphatase (U/L) Date Value 04/08/2022 77 Bilirubin, Total (mg/dL) Date Value 04/08/2022 0.7 AST (U/L) Date Value 04/08/2022 12 (L) ALT (U/L) Date Value 04/08/2022 24 Cholesterol, Total (mg/dL) Date Value 06/27/2005 153 Triglyceride (mg/dL) Date Value 06/27/2005 144 DIAGNOSIS: (D46.9) Myelodysplastic syndrome (HCC) (primary encounter diagnosis) Plan: DISCONTINUED: cyanocobalamin 1,000 mcg injection (N18.4) CKD (chronic kidney disease) stage 4, GFR 15-29 ml/min (HCC) (N18.4, D63.1) Anemia of chronic renal failure, stage 4 (severe) (HCC) Plan: DISCONTINUED: cyanocobalamin 1,000 mcg injection PAST MEDICAL HISTORY Diagnosis Date Anemia Anemia of chronic renal failure, stage 4 (severe) (HCC) 08/23/2020 Atrial fibrillation (HCC) Chronic kidney disease CRF (chronic renal failure), stage 4 (severe) (HCC) 08/23/2020 Diabetes mellitus (HCC) GI bleed Hypertension 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 loss 06/15/2020 Leukopenia Sleep apnea Thrombocytopenia (HCC) PAST SURGICAL HISTORY Procedure Laterality Date COLONOSCOPY Social History Tobacco Use Smoking status: Former Types: Pipe Quit date: 1994 Years since quittin.7 Passive exposure: Past Smokeless tobacco: Never Vaping Use Vaping Use: Never used Substance Use Topics Alcohol use: Not Currently Drug use: Not Currently I spent a total of 35 minutes on the date of the service which included preparing to see the patient, [id number] patient care, completing clinical documentation, performing a medically appropriate examination, counseling and educating the patient/family/caregiver, ordering medications, tests, or procedures, and communicating with other HCPs (not separately reported). Asher Hummel MD, CPE Hematology and Oncology Services Provided at: [place], [place] CC: Dr. Flash Gomez (Cardiology [facility]) MD Elysia Merlos MD documented in this encounter [facility] 04-03-2022 Miscellaneous Notes Discussed with Dr Arias. No additional orders. Fide Puente RN Critical lab called Hgb 6.9/Hct 21.8. Pt has 2 units PRBC's ordered and I called and spoke to Rosetta at the [facility] infusion center and he is schedule for infusion of units at 0800 04/04/22. Note Hgb 7.0 HM/BRYNN: any further instructions? Fide Puente RN documented in this encounter [facility] 04-02-2022 Miscellaneous Notes 2 units packed RBC S at [facility] on 04-04-22. 9am. Patient is going for lab draw on 04-03. Around noon documented in this encounter [facility] 04-02-2022 Miscellaneous Notes Transfusion orders signed per Wilfred and forwarded to Edd PSS, for scheduling. Angle Kamara RN Today's hgb 7. Pt's spouse notified and verbalizes understanding. Notes the pt c/o increased fatigue and weakness. Do you want to transfuse? Angle Kamara RN Pt requesting lab results be called to his spouse, Lissette [phone] when available. Thanks! documented in this encounter [facility] 03-21-2022 Miscellaneous Notes Don is scheduled 04/04 for appointment with [facility] answer line messaged me back and said they tried to call patient this afternoon to schedule, they left a message Hi, I am currently working on this. Clerical: Please see Dr Esposito's reply below. Thanks! Angle Kamara RN Images from the original note were not included. MD Asher Laughlin MD; Angle Kamara RN I would recommend having angle or someone from your office call the cancer answer line-- [phone]-- since I am not sure how these other consults are going through If you want me to specifically see-- let them know. Otherwise-- they will get them in to the first available. I can always give add on times Thanks Elysia Previous Messages ----- Message ----- From: Asher Hummel MD Sent: 03/15/2022 9:27 PM EDT To: Elysia Esposito MD, Angle Kamara RN Yes - def - I placed a consult today -thank you! ----- Message ----- From: Elysia Esposito MD Sent: 03/11/2022 2:56 PM EDT To: Asher Hummel MD, Angle Kamara RN We are happy to get him in to be seen Would that be okay? ----- Message ----- From: Asher Hummel MD Sent: 03/11/2022 2:53 PM EDT To: Elysia Esposito MD, MONET Conley - I could use your input on this gentleman - he is transfusion dependent about every 2 weeks. Vidaza + Aranesp isn't working so well. Any thoughts you could provide would be appreciated. documented in this encounter [facility] 03-19-2022 Miscellaneous Notes Pt's calls for yesterday's hgb results. Results reviewed w/ pt's spouse. Spouse verbalizes understanding. Denies any further questions at this time. Angle Kamara RN documented in this encounter [facility] 03-18-2022 Miscellaneous Notes Message left for pt to call our office back regarding lab results. Paris Jerry RN Patient is here for lab draw. Patient and spouse have asked us to send message to have someone call them today with the results. Thank you! Emily Horan Pss documented in this encounter [facility] 03-18-2022 Miscellaneous Notes Emailed cancer answer line to schedule Clerical: Please refer pt to Dr Esposito. Thanks! Angle Kamara RN Yes - that would be great - I just spoke with his and she is aware! Brynn: Do you want pt set up to see Dr Esposito? Angle Kamara RN Images from the original note were not included. MD Asher Laughlin MD; Angle Kamara RN We are happy to get him in to be seen Would that be okay? Previous Messages ----- Message ----- From: Asher Hummel MD Sent: 03/11/2022 2:53 PM EDT To: Elysia Esposito MD, MONET Conley - I could use your input on this gentleman - he is transfusion dependent about every 2 weeks. Vidaza + Aranesp isn't working so well. Any thoughts you could provide would be appreciated. documented in this encounter [facility] 03-11-2022 Note [facility] 03-11-2022 Miscellaneous Notes 2 units packed RBC's at [facility] on Friday03-12-22 8am. Lab today. Orders were faxed documented in this encounter [facility] 03-11-2022 Instructions Asher Hummel MD - 03/11/2022 2:54 PM EDT 1. Proceed with C9 Vidaza D1-5 2. Transfuse in [facility] this week 1 unit 3. Continue Retacrit q 2 weeks - labs every weeks 4. RTC in 4 weeks for C10 Vidaza 5. Discuss with Dr. Esposito. documented in this encounter [facility] 03-11-2022 History of Present illness Narrative Images from the original note were not included. NAME: Sandip Broussard [facility] NO.: [id number] DATE OF SERVICE: March 11, 2022 Some elements in this clinic note that are critical to medical decision making have been carefully reviewed and included from a prior clinic note dated: February 11 2022 (Lori) & January 14, 2022 Referring Provider: Dr. Flash Pearl Additional Clinicians involved in Sandip Broussard's care: Dr. José Luis Velasquez, Dr. Oumou Wade CC: Follow up ASSESSMENT: 81 year old year old man with MDS, stage 4 chronic kidney disease and iron deficiency anemia d/t GI blood loss (seen on capsule endoscopy) and epistaxis. Was receiving high dose EPO every 2 weeks with periodic iron infusions. With persisting cytopenia we started him on Vidaza low dose to see if we can positively impact his pancytopenia and reduce his fatigue as well as his Epo usage. Unfortunately he suffered an acute [place] 11/23/2021 and also developed another GI bleed. He was transfused, and medically managed after catheterization. 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 He has been requiring transfusion of PRBCs every 3-4 weeks. He is here for cycle 8 of vidaza. His counts are overall stable. Appears his WBC is consistently low on day 1 and seems to improve after day 5. Will continue with B12 today and monthly and reticrit every 2 weeks. He requires weekly labs as well. He will return in 4 weeks for cycle 10 but I also will seek a second opinion from our leukemia group downtown. PLAN: 1. Proceed with C9 Vidaza D1-5, B12 shot today 2. Transfuse in [facility] this week 1 unit 3. Continue Retacrit q 2 weeks - labs every weeks 4. RTC in 4 weeks for C10 Vidaza 5. Discuss with Dr. Esposito. TREATMENT TO DATE: 3. 07/09/2021 - Current: Vidaza D1-5 q 28. 2. Retacrit 80,000 units every other week 1. Intermittent IV Iron HPI: Updated Visit, March 11, 2022: Unfortunately Lloyd is not maintaining any response to single agent Vidaza and remains transfusion dependent. I spoke with him and his his about seeking an opinion downtown with our Leukemia group as well as Hospice. It was a tearfu meeting as lissette is significantly younger than Lloyd. Updated Visit, February 11, 2022: Patient received 2 units of PRBC on 02/05/22 for hgb of 6.8. Saw cardiology today no changes. Denies any fevers, chill, nausea or vomiting. Overall, other than his normal fatigue, he feels well. Updated Visit, January 14, 2022: Lloyd in good spirit returns to continue treatments for MDS. I think we are making some progress as we haven't had to transfuse him in 4 weeks. WBC counts always start low at the beginning of each cycle but after D5, improve significantly. Hasn't been transfused for 4 weeks - anticipate need this week. Using BiPap and can sleep in bed now. Updated Visit, December 17, 2021: Lloyd is 81 years old and returns with his Lissette in follow-up. He feels much better having had several units transfused and now has a hemoglobin of 10.2. We revisited the discussion of pursuing treatment versus hospice and he is still indeterminant. We discussed pursuing a few more cycles and then reconsidering at that time. He does have some evidence of improvement with improving white blood cell count as well as platelet count improvement. He feels really good following his transfusion and wishes to proceed. Updated Visit, November 29, 2021: Lloyd returns unfortunately had Afib and heart failure with AMI and significant MV regurg. Fatigued. Will consider Hospice. Hold treatment for now and reconsider in 3-4 weeks. Also recovering from pneumonia. Reviewed outside records. Updated Visit, October 25, 2021: Sandip Broussard returns for scheduled follow up. He states that he is feeling slow . He has shortness of breath all the time. He denies any dizziness. He denies any abnormal blood loss. Updated Visit, October 01, 2021: Lloyd is 80 years old and returns with his Lissette for treatment with low-dose Vidaza. He appears to be having some response with improving platelet counts. His only complaints are that of increased abdominal gas. He is otherwise doing well. Continue Retacrit and treatment as recommended. He is safe to proceed. Sees ENT next week No more nose bleeds after stopping Eliquis. Updated Visit, September 17, 2021: Sandip Broussard returns for scheduled follow-up. Since his last visit there has been no significant medical changes. He denies bleeding and abnormal bruising. He denies fevers, chills, night sweats and signs/symptoms of infection. Overall, he feels fairly well. Updated Visit, September 03, 2021: BP improved. Labs stable and platelets have recovered. Was transfused last week and feels better. Neutropenia is disease related and we will continue with treatment. Continue retacrit as Ordered. Transfuse periodically. Updated Visit, August 24, 2021: Lloyd returns today prior to Retacrit during his 2 weeks following Vidaza. Has been having some pain at the base of his skull and is having some dizziness. BP is low - stop Norvasc and Hytrin, and hold Aldactone for now. It is their anniversary today - 49th! Updated Visit, August 06, 2021: Lloyd returns today for follow up and cycle 2 of vidaza. Feeling well. Ran out of his diuretic for a week and had some JANG. Was able to get his medications refilled and is feeling better now. No swelling, chest pain, dizziness, fever, chills or other concerning symptoms. Updated Visit, July 19, 2021: Sandip Broussard returns for follow-up. He received his first cycle of Vidaza 07/09/2021 through 07/13/2021. Overall, he tolerated treatment well without any side effects. He is doing well today and offers no new particular complaints. Updated Visit, July 09, 2021: Hasn't required transfusion since 06/2020. Still profoundly anemic despite adequate dosing of aranesp for CKD. Will proceed with low dose Vidaza. Reviewed plan and goals again. Updated Visit, May 31, 2021: EPO was increased to 80,000 units about 2 weeks ago. Feels the same. reports he still spends most of his day on the couch napping. Patient denies any bleeding. Does have diarrhea, which he has had for over 3 months. 2 loose stools a day. Afraid to go places because of the urgency a/w it. Patient denies bleeding. Does not want to see GI at this time. Has not taken anything for it. No new medications. Updated Visit, May 02, 2021: Lloyd returns with his Lissette and reports that he can't exert himself too much but can get out to the barn and doesn't get dizzy anymore. Still not responding as robustly to increased EPO, so will increase to 80k every 2 weeks. Updated Visit, March 07, 2021: Lloyd returns with his Lissette and was seen by Dr. Wade approximately 1 week ago from ENT. Patient was a little bit confused on instructions given and so I reviewed the recommendations and clarified for Lloyd exactly what his regimen should be. This includes stopping Eliquis as well as aspirin. He appears to be stable from a laboratory perspective but continues to have low platelets and generalized pancytopenia. We discussed again, the goal of his treatment and interventions to be palliative as he requested. He feels well today. Updated Visit, February 21, 2021: Nose bleed Friday- ER plugged it up but then went back on Friday hospitalized until this morning Still seeping blood. Operated on nose- surgery w/ Dr. Marshall Last fall in [place]. Has tranexamic acid at home. Requesting ENT referral at [facility]. He is dehydrated and not keeping up with fluids. Partition Setter is elevated exacerbating cause was likely letting his CPAP reservoir go dry. Ferritin is coming down. Updated Visit, January 10, 2021: Lloyd is here for follow up. After review of his chart, he has stage IV ckd and presented with pancytopenia, including significant anemia requiring transfusion due to GI bleeding and nose bleeds. 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 He has received IV iron in the past along with retacrit, which he is currently receiving every other week. Current goal is quality of life with the least amount visits. He did just have a nose bleed on Friday, and it didn't last long. He made his own plug and kept it in his nose for 24 hours and no additional bleeding. He is taking his eliquis one pill daily, but he held it the last two days due to the nose bleed. He is not on aspirin. Overall he feels well and offers no complaints of significant fatigue, shortness of breath, cough, fever, chills or signs of infections. Updated Visit, November 15, 2020: Sandip Broussard returns for follow-up. He remains on Retacrit 40,000 units every 2 weeks and is tolerating it well. Recently he has noticed pain in the back of his neck. He experienced this same pain when his hemoglobin was low in the past. He states that he takes Tylenol with improvement in the pain. He denies any signs of bleeding. He states that his bruising is better. He is still taking the Eliquis daily at the recommendation of his fashion model. Since stopping the aspirin he has not had any further nosebleeds. He denies fevers, chills, night sweats and signs/symptoms of infection. He has persistent exertional shortness of breath. Updated Visit, September 20, 2020: Lloyd is 79 and returns with his Lissette for discussion on his overall condition as well as his rec to have watchman for A-fib. However, our discussion reveals that he really doesn't want to do anything and that he also doesn't want to take full dose anticoagulation. I pressed him and verified that his goals were to focus on quality of life and get minimally involved in medical procedures. We will continue to monitor his counts and transfuse or give iron and retacrit as necessary, but minimize his follow ups. Updated Visit, August 23, 2020: Lloyd is 79 years old and returns with his Lissette today for multifactorial anemia. His GI bleed was finally found and addressed. They brought in a cake to share in their celebration of their anniversary and Nicki's birthday. He reports that he is no longer lightheaded. Still some fatigue. Now will need Aranesp replacement and iron x 1. He may need low dose dacogen in the future if he is unresponsive. Updated visit, July 26, 2020: Lloyd is 79 years old and returns with his Lissette today having had a capsule endoscopy which was positive for GI bleed. This was stopped and he is now recovering from his blood loss anemia. We will continue supporting him with IV iron as needed but for now we will hold off he will continue need B12 and folic acid. He still has underlying myelodysplasia and stage IV chronic kidney disease which is contributing to his anemia but Corine is not bleeding any longer. Updated Visit, July 03, 2020: Lloyd is 79 years old and returns with his Lissette again requiring additional transfusions because of significantly low hemoglobin. I reviewed his bone marrow biopsy with him which is consistent with myelodysplastic syndrome but he has ongoing melena that is highly suspicious for a GI bleed. To date his endoscopic work-up has been negative but he is due to have a capsule endoscopy that hopefully will reveal the cause of his cytopenias. He feels weak and is in a wheelchair today. Updated Visit, June 15, 2020: Conducted by telephone. Sandip Broussard is a 79 year old male seen for pancytopenia recently having had bone marrow biopsy that is most consistent with. 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 Hopefully his iron deficiency can be corrected and perhaps any evidence of GI bleeding can be attenuated. He sees gastroenterology next week. He may need transfusion support before the weekend even though he was just transfused his 17th unit 2 days ago. I reviewed his bone marrow biopsy results with him and his Lissette in some detail. His erythropoietin level is markedly elevated indicating that supplementation would not help and that his renal failure is not contributing to his anemia. Initial Visit, May 29, 2020: Sandip Broussard presents today Hematology and Oncology evaluation. He is a 79 year old male who is accompanied by his Lsisette on urgent referral from Dr. Flash Pearl for pancytopenia, hemoglobin of 5 with both recent EGD and colonoscopy demonstrating no evidence of active bleeding but slight chronic gastritis. He also had several epistaxes as blood to the point of requiring transfusions causing lightheadedness and unsteadiness. Patient states he has had black stools since July 2019. So far extensive work-up has been unrevealing. He has had recent hospitalization and was released on 05/26/2020. Full work-up at that time revealed an adequate erythropoietin response despite elevated creatinine and stage III chronic kidney disease. However his white blood cell count remains suppressed as does his platelet count of less than 100,000. Indeed, his epistaxis may be the cause of his melanotic stools but warrants another look and additionally he will need a bone marrow biopsy. His coags are normal. His red blood cell indices only indicate hypochromasia and macrocytosis. Patient had a bleeding scan that was negative as well. REVIEW OF SYSTEMS Per HPI and otherwise negative by full review of organ systems. ECOG PERFORMANCE STATUS: 1 PHYSICAL EXAMINATION: Vitals: BP 106/38 Pulse 60 Temp (Src) 97.3 (Temporal) Resp 18 Ht 5' 5.039 (1.65m) Wt 248 lb 3.2 oz (112.6kg) SpO2 98[O2 @ 2L]% BMI 41.25 kg/(m^2). Body surface area is 2.27 meters squared.Exam limited to gross visualization where appropriate due to COVID-19. Gen.: This is an age-appropriate patient in no acute distress. Head: Appears atraumatic with no visible lesions. Eyes: Pupils equally round and reactive to light, extraocular muscles are intact. Neck: Supple. Mouth: Masked. Respiratory: Appears to be respiring comfortably. Neurologic: Nonfocal to gross visualization. Alert and oriented 3. Psychiatric: No evidence of inappropriate anxiety or depression. Skin: Visible areas of skin without rash, lesions, wounds or petechiae. ALLERGIES: ALLERGIES Allergen Reactions Bee Stings [Other] large hives, swelling at site Coreg [Carvedilol] Hives MEDICATIONS: bumetanide (BUMEX) 1 mg tablet 2 mg. potassium chloride SR (MICRO-K) 10 mEq CR capsule ciprofloxacin HCl (CIPRO) 500 mg tablet Take 500 mg by mouth once daily. FARXIGA 10 mg tablet metoprolol succinate ER (TOPROL XL) 25 mg 24 hr tablet Take 25 mg by mouth once daily. spironolactone (ALDACTONE) 25 mg tablet Take 25 mg by mouth once daily. aspirin 81 mg chewable tablet CHEW 1 TABLET BY MOUTH EVERY DAY terazosin (HYTRIN) 5 mg capsule Take 5 mg by mouth daily at bedtime. Omeprazole-Sodium Bicarbonate 40-1,680 mg pack Take by mouth. sucralfate (CARAFATE) 1 gram tablet Take 1 g by mouth four times daily. [facility] NASAL OINTMENT Apply to affected area twice daily. atorvastatin (LIPITOR) 20 mg tablet Take 1 tablet by mouth daily at bedtime. colchicine 0.6 mg tablet Take 0.6 mg by mouth as needed. As needed 1-2 times/week lisinopril (ZESTRIL, PRINIVIL) 10 mg tablet Take 1 tablet by mouth once daily. Please resume this medication after PCP follow up ONETOUCH DELICA PLUS LANCET 33 gauge glipiZIDE (GLUCOTROL) 5 mg tablet Take 5 mg by mouth once daily. ONETOUCH ULTRA BLUE TEST STRIP test strip cholecalciferol (VITAMIN D3) 1,000 unit tab tablet 1,000 Units once daily. Only taking 500 units LABORATORY VALUES: WBC (k/uL) Date Value 03/11/2022 1.70 (L) RBC (m/uL) Date Value 03/11/2022 2.06 (L) Hemoglobin (g/dL) Date Value 03/11/2022 6.9 (L) Hematocrit (%) Date Value 03/11/2022 22.2 (L) MCV (fL) Date Value 03/11/2022 107.8 (H) MCH (pg) Date Value 03/11/2022 33.5 MCHC (g/dL) Date Value 03/11/2022 31.1 RDW-CV (%) Date Value 03/11/2022 25.5 (H) Platelet Count (k/uL) Date Value 03/11/2022 119 (L) MPV (fL) Date Value 03/11/2022 13.7 (H) Glucose (mg/dL) Date Value 03/04/2022 154 (H) BUN (mg/dL) Date Value 03/04/2022 23 Creatinine (mg/dL) Date Value 03/04/2022 1.73 (H) Sodium (mmol/L) Date Value 03/04/2022 143 Potassium (mmol/L) Date Value 03/04/2022 4.2 Chloride (mmol/L) Date Value 03/04/2022 106 (H) CO2 (mmol/L) Date Value 03/04/2022 27 Protein, Total (g/dL) Date Value 03/04/2022 5.8 (L) Albumin (g/dL) Date Value 03/04/2022 3.8 (L) Calcium, Total (mg/dL) Date Value 03/04/2022 8.8 Alkaline Phosphatase (U/L) Date Value 03/04/2022 68 Bilirubin, Total (mg/dL) Date Value 03/04/2022 0.8 AST (U/L) Date Value 03/04/2022 11 (L) ALT (U/L) Date Value 03/04/2022 21 Cholesterol, Total (mg/dL) Date Value 06/27/2005 153 Triglyceride (mg/dL) Date Value 06/27/2005 144 DIAGNOSIS: No diagnosis found. PAST MEDICAL HISTORY Diagnosis Date Anemia Anemia of chronic renal failure, stage 4 (severe) (HCC) 08/23/2020 Atrial fibrillation (HCC) Chronic kidney disease CRF (chronic renal failure), stage 4 (severe) (HCC) 08/23/2020 Diabetes mellitus (HCC) GI bleed Hypertension 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 loss 06/15/2020 Leukopenia Sleep apnea Thrombocytopenia (HCC) PAST SURGICAL HISTORY Procedure Laterality Date COLONOSCOPY Social History Tobacco Use Smoking status: Former Types: Pipe Quit date: 1994 Years since quittin.6 Passive exposure: Past Smokeless tobacco: Never Vaping Use Vaping Use: Never used Substance Use Topics Alcohol use: Not Currently I spent a total of 35 minutes on the date of the service which included preparing to see the patient, [id number] patient care, completing clinical documentation, performing a medically appropriate examination, counseling and educating the patient/family/caregiver, ordering medications, tests, or procedures, and communicating with other HCPs (not separately reported). Asher Hummel MD, CPE Hematology and Oncology Services Provided at: [place], [place] CC: Dr. Flash Gomez (Cardiology [facility]) Dr. Oumou Cho MD documented in this encounter [facility] 02-28-2022 Miscellaneous Notes Patient has been scheduled for transfusion at [place] on 03/01 @ 8:00 am. Faxed orders to [place] Scheduling. He will get TSC today. Ada Perez documented in this encounter [facility] 02-25-2022 Note [facility] 02-25-2022 History of Present illness Narrative Dr. Hummel aware of pt hgb 7.1 and his reports of feeling fatigue, lighteaded. Retacrit given; Pt to come back in to office on for CBC. Patient agrees with plan and scheduled appointment. documented in this encounter [facility] 02-11-2022 Note [facility] 02-11-2022 History of Present illness Narrative Images from the original note were not included. NAME: Sandip Broussard [facility] NO.: [id number] DATE OF SERVICE: February 11 2022 (Elements copied from Dr. Segundo's note dated January 14, 2022, have been reviewed and updated where appropriate, and all reflect current assessment and medical decision making during today's encounter, February 11, 2022) Referring Provider: Dr. Flash Pearl Additional Clinicians involved in Sandip Broussard's care: Dr. José Luis Velasquez, Dr. Oumou Wade CC: Follow up ASSESSMENT:81 year old year old man with MDS, stage 4 chronic kidney disease and iron deficiency anemia d/t GI blood loss (seen on capsule endoscopy) and epistaxis. Was receiving high dose EPO every 2 weeks with periodic iron infusions. With persisting cytopenia we started him on Vidaza low dose to see if we can positively impact his pancytopenia and reduce his fatigue as well as his Epo usage. Unfortunately he suffered an acute [place] 11/23/2021 and also developed another GI bleed. He was transfused, and medically managed after catheterization. 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 He has been requiring transfusion of PRBCs every 3-4 weeks. He is here for cycle 8 of vidaza. His counts are overall stable. Appears his WBC is consistently low on day 1 and seems to improve after day 5. Will continue with B12 today and monthly and reticrit every 2 weeks. He requires weekly labs as well. He will return in 4 weeks for cycle 9. TREATMENT TO DATE: 307/09/2021 - Current: Vidaza D1-5 q 28. 2. Retacrit 80,000 units every other week 1. Intermittent IV Iron HPI: Updated Visit, February 11, 2022: Patient received 2 units of PRBC on 02/05/22 for hgb of 6.8. Saw cardiology today no changes. Denies any fevers, chill, nausea or vomiting. Overall, other than his normal fatigue, he feels well. Updated Visit, January 14, 2022: Lloyd in good spirit returns to continue treatments for MDS. I think we are making some progress as we haven't had to transfuse him in 4 weeks. WBC counts always start low at the beginning of each cycle but after D5, improve significantly. Hasn't been transfused for 4 weeks - anticipate need this week. Using BiPap and can sleep in bed now. Updated Visit, December 17, 2021: Lloyd is 81 years old and returns with his Lissette in follow-up. He feels much better having had several units transfused and now has a hemoglobin of 10.2. We revisited the discussion of pursuing treatment versus hospice and he is still indeterminant. We discussed pursuing a few more cycles and then reconsidering at that time. He does have some evidence of improvement with improving white blood cell count as well as platelet count improvement. He feels really good following his transfusion and wishes to proceed. Updated Visit, November 29, 2021: Lloyd returns unfortunately had Afib and heart failure with AMI and significant MV regurg. Fatigued. Will consider Hospice. Hold treatment for now and reconsider in 3-4 weeks. Also recovering from pneumonia. Reviewed outside records. Updated Visit, October 25, 2021: Sandip Broussard returns for scheduled follow up. He states that he is feeling slow . He has shortness of breath all the time. He denies any dizziness. He denies any abnormal blood loss. Updated Visit, October 01, 2021: Lloyd is 80 years old and returns with his Lissette for treatment with low-dose Vidaza. He appears to be having some response with improving platelet counts. His only complaints are that of increased abdominal gas. He is otherwise doing well. Continue Retacrit and treatment as recommended. He is safe to proceed. Sees ENT next week No more nose bleeds after stopping Eliquis. Updated Visit, September 17, 2021: Sandip Broussard returns for scheduled follow-up. Since his last visit there has been no significant medical changes. He denies bleeding and abnormal bruising. He denies fevers, chills, night sweats and signs/symptoms of infection. Overall, he feels fairly well. Updated Visit, September 03, 2021: BP improved. Labs stable and platelets have recovered. Was transfused last week and feels better. Neutropenia is disease related and we will continue with treatment. Continue retacrit as Ordered. Transfuse periodically. Updated Visit, August 24, 2021: Lloyd returns today prior to Retacrit during his 2 weeks following Vidaza. Has been having some pain at the base of his skull and is having some dizziness. BP is low - stop Norvasc and Hytrin, and hold Aldactone for now. It is their anniversary today - 49th! Updated Visit, August 06, 2021: Lloyd returns today for follow up and cycle 2 of vidaza. Feeling well. Ran out of his diuretic for a week and had some JANG. Was able to get his medications refilled and is feeling better now. No swelling, chest pain, dizziness, fever, chills or other concerning symptoms. Updated Visit, July 19, 2021: Sandip Broussard returns for follow-up. He received his first cycle of Vidaza 07/09/2021 through 07/13/2021. Overall, he tolerated treatment well without any side effects. He is doing well today and offers no new particular complaints. Updated Visit, July 09, 2021: Hasn't required transfusion since 06/2020. Still profoundly anemic despite adequate dosing of aranesp for CKD. Will proceed with low dose Vidaza. Reviewed plan and goals again. Updated Visit, May 31, 2021: EPO was increased to 80,000 units about 2 weeks ago. Feels the same. reports he still spends most of his day on the couch napping. Patient denies any bleeding. Does have diarrhea, which he has had for over 3 months. 2 loose stools a day. Afraid to go places because of the urgency a/w it. Patient denies bleeding. Does not want to see GI at this time. Has not taken anything for it. No new medications. Updated Visit, May 02, 2021: Lloyd returns with his Lissette and reports that he can't exert himself too much but can get out to the barn and doesn't get dizzy anymore. Still not responding as robustly to increased EPO, so will increase to 80k every 2 weeks. Updated Visit, March 07, 2021: Lloyd returns with his Lissette and was seen by Dr. Wade approximately 1 week ago from ENT. Patient was a little bit confused on instructions given and so I reviewed the recommendations and clarified for Lloyd exactly what his regimen should be. This includes stopping Eliquis as well as aspirin. He appears to be stable from a laboratory perspective but continues to have low platelets and generalized pancytopenia. We discussed again, the goal of his treatment and interventions to be palliative as he requested. He feels well today. Updated Visit, February 21, 2021: Nose bleed Friday- ER plugged it up but then went back on Friday hospitalized until this morning Still seeping blood. Operated on nose- surgery w/ Dr. Marshall Last fall in [place]. Has tranexamic acid at home. Requesting ENT referral at [facility]. He is dehydrated and not keeping up with fluids. Partition Setter is elevated exacerbating cause was likely letting his CPAP reservoir go dry. Ferritin is coming down. Updated Visit, January 10, 2021: Lloyd is here for follow up. After review of his chart, he has stage IV ckd and presented with pancytopenia, including significant anemia requiring transfusion due to GI bleeding and nose bleeds. 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 He has received IV iron in the past along with retacrit, which he is currently receiving every other week. Current goal is quality of life with the least amount visits. He did just have a nose bleed on Friday, and it didn't last long. He made his own plug and kept it in his nose for 24 hours and no additional bleeding. He is taking his eliquis one pill daily, but he held it the last two days due to the nose bleed. He is not on aspirin. Overall he feels well and offers no complaints of significant fatigue, shortness of breath, cough, fever, chills or signs of infections. Updated Visit, November 15, 2020: Sandip Broussard returns for follow-up. He remains on Retacrit 40,000 units every 2 weeks and is tolerating it well. Recently he has noticed pain in the back of his neck. He experienced this same pain when his hemoglobin was low in the past. He states that he takes Tylenol with improvement in the pain. He denies any signs of bleeding. He states that his bruising is better. He is still taking the Eliquis daily at the recommendation of his fashion model. Since stopping the aspirin he has not had any further nosebleeds. He denies fevers, chills, night sweats and signs/symptoms of infection. He has persistent exertional shortness of breath. Updated Visit, September 20, 2020: Lloyd is 79 and returns with his Lissette for discussion on his overall condition as well as his rec to have watchman for A-fib. However, our discussion reveals that he really doesn't want to do anything and that he also doesn't want to take full dose anticoagulation. I pressed him and verified that his goals were to focus on quality of life and get minimally involved in medical procedures. We will continue to monitor his counts and transfuse or give iron and retacrit as necessary, but minimize his follow ups. Updated Visit, August 23, 2020: Lloyd is 79 years old and returns with his Lissette today for multifactorial anemia. His GI bleed was finally found and addressed. They brought in a cake to share in their celebration of their anniversary and Nicki's birthday. He reports that he is no longer lightheaded. Still some fatigue. Now will need Aranesp replacement and iron x 1. He may need low dose dacogen in the future if he is unresponsive. Updated visit, July 26, 2020: Lloyd is 79 years old and returns with his Lissette today having had a capsule endoscopy which was positive for GI bleed. This was stopped and he is now recovering from his blood loss anemia. We will continue supporting him with IV iron as needed but for now we will hold off he will continue need B12 and folic acid. He still has underlying myelodysplasia and stage IV chronic kidney disease which is contributing to his anemia but Corine is not bleeding any longer. Updated Visit, July 03, 2020: Lloyd is 79 years old and returns with his Lissette again requiring additional transfusions because of significantly low hemoglobin. I reviewed his bone marrow biopsy with him which is consistent with myelodysplastic syndrome but he has ongoing melena that is highly suspicious for a GI bleed. To date his endoscopic work-up has been negative but he is due to have a capsule endoscopy that hopefully will reveal the cause of his cytopenias. He feels weak and is in a wheelchair today. Updated Visit, June 15, 2020: Conducted by telephone. Sandip Broussard is a 79 year old male seen for pancytopenia recently having had bone marrow biopsy that is most consistent with. 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 Hopefully his iron deficiency can be corrected and perhaps any evidence of GI bleeding can be attenuated. He sees gastroenterology next week. He may need transfusion support before the weekend even though he was just transfused his 17th unit 2 days ago. I reviewed his bone marrow biopsy results with him and his Lissette in some detail. His erythropoietin level is markedly elevated indicating that supplementation would not help and that his renal failure is not contributing to his anemia. Initial Visit, May 29, 2020: Sandip Broussard presents today Hematology and Oncology evaluation. He is a 79 year old male who is accompanied by his Lissette on urgent referral from Dr. Flash Pearl for pancytopenia, hemoglobin of 5 with both recent EGD and colonoscopy demonstrating no evidence of active bleeding but slight chronic gastritis. He also had several epistaxes as blood to the point of requiring transfusions causing lightheadedness and unsteadiness. Patient states he has had black stools since July 2019. So far extensive work-up has been unrevealing. He has had recent hospitalization and was released on 05/26/2020. Full work-up at that time revealed an adequate erythropoietin response despite elevated creatinine and stage III chronic kidney disease. However his white blood cell count remains suppressed as does his platelet count of less than 100,000. Indeed, his epistaxis may be the cause of his melanotic stools but warrants another look and additionally he will need a bone marrow biopsy. His coags are normal. His red blood cell indices only indicate hypochromasia and macrocytosis. Patient had a bleeding scan that was negative as well. REVIEW OF SYSTEMS Per HPI and otherwise negative by full review of organ systems. ECOG PERFORMANCE STATUS: 1 PHYSICAL EXAMINATION: Vitals: BP 104/42 Pulse 81 Temp (Src) 97 (Temporal) Resp 16 Ht 5' 5.039 (1.65m) Wt 244 lb 9.6 oz (111.0kg) SpO2 98[O2 @ 2L]% BMI 40.65 kg/(m^2). Body surface area is 2.26 meters squared. General: Alert and oriented, no distress, pleasant and cooperative. Heart: Regular, normal S1 and S2, no murmurs, rubs, or gallops Lungs: Clear to auscultation bilaterally Abdomen: Benign Extremities: Feet/ankles without edema, posterior tibial pulses full and symmetrical ALLERGIES: ALLERGIES Allergen Reactions Bee Stings [Other] large hives, swelling at site Coreg [Carvedilol] Hives MEDICATIONS: bumetanide (BUMEX) 1 mg tablet potassium chloride SR (MICRO-K) 10 mEq CR capsule ciprofloxacin HCl (CIPRO) 500 mg tablet Take 500 mg by mouth once daily. FARXIGA 10 mg tablet metoprolol succinate ER (TOPROL XL) 25 mg 24 hr tablet Take 25 mg by mouth once daily. spironolactone (ALDACTONE) 25 mg tablet Take 25 mg by mouth once daily. aspirin 81 mg chewable tablet CHEW 1 TABLET BY MOUTH EVERY DAY terazosin (HYTRIN) 5 mg capsule Take 5 mg by mouth daily at bedtime. Omeprazole-Sodium Bicarbonate 40-1,680 mg pack Take by mouth. sucralfate (CARAFATE) 1 gram tablet Take 1 g by mouth four times daily. [facility] NASAL OINTMENT Apply to affected area twice daily. atorvastatin (LIPITOR) 20 mg tablet Take 1 tablet by mouth daily at bedtime. colchicine 0.6 mg tablet Take 0.6 mg by mouth as needed. As needed 1-2 times/week lisinopril (ZESTRIL, PRINIVIL) 10 mg tablet Take 1 tablet by mouth once daily. Please resume this medication after PCP follow up ONETOUCH DELICA PLUS LANCET 33 gauge glipiZIDE (GLUCOTROL) 5 mg tablet Take 5 mg by mouth once daily. ONETOUCH ULTRA BLUE TEST STRIP test strip cholecalciferol (VITAMIN D3) 1,000 unit tab tablet 1,000 Units once daily. LABORATORY VALUES: WBC (k/uL) Date Value 02/11/2022 2.52 (L) RBC (m/uL) Date Value 02/11/2022 2.40 (L) Hemoglobin (g/dL) Date Value 02/11/2022 8.1 (L) Hematocrit (%) Date Value 02/11/2022 25.5 (L) MCV (fL) Date Value 02/11/2022 106.3 (H) MCH (pg) Date Value 02/11/2022 33.8 MCHC (g/dL) Date Value 02/11/2022 31.8 RDW-CV (%) Date Value 02/11/2022 23.6 (H) Platelet Count (k/uL) Date Value 02/11/2022 135 (L) MPV (fL) Date Value 02/11/2022 12.8 (H) Glucose (mg/dL) Date Value 02/11/2022 129 (H) BUN (mg/dL) Date Value 02/11/2022 21 Creatinine (mg/dL) Date Value 02/11/2022 2.06 (H) Sodium (mmol/L) Date Value 02/11/2022 140 Potassium (mmol/L) Date Value 02/11/2022 4.4 Chloride (mmol/L) Date Value 02/11/2022 101 CO2 (mmol/L) Date Value 02/11/2022 29 Protein, Total (g/dL) Date Value 02/11/2022 6.2 (L) Albumin (g/dL) Date Value 02/11/2022 4.0 Calcium, Total (mg/dL) Date Value 02/11/2022 8.5 Alkaline Phosphatase (U/L) Date Value 02/11/2022 79 Bilirubin, Total (mg/dL) Date Value 02/11/2022 0.6 AST (U/L) Date Value 02/11/2022 14 ALT (U/L) Date Value 02/11/2022 23 Cholesterol, Total (mg/dL) Date Value 06/27/2005 153 Triglyceride (mg/dL) Date Value 06/27/2005 144 DIAGNOSIS: No diagnosis found. PAST MEDICAL HISTORY Diagnosis Date Anemia Anemia of chronic renal failure, stage 4 (severe) (HCC) 08/23/2020 Atrial fibrillation (HCC) Chronic kidney disease CRF (chronic renal failure), stage 4 (severe) (HCC) 08/23/2020 Diabetes mellitus (HCC) GI bleed Hypertension 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 loss 06/15/2020 Leukopenia Sleep apnea Thrombocytopenia (HCC) PAST SURGICAL HISTORY Procedure Laterality Date COLONOSCOPY Social History Tobacco Use Smoking status: Former Smoker Years: 45.00 Types: Pipe Quit date: 1994 Years since quittin.5 Smokeless tobacco: Never Used Vaping Use Vaping Use: Never used Substance Use Topics Alcohol use: Not Currently Drug use: Not on file Radha Sandoval PA-C CC: Dr. Flash Gomez (Cardiology [facility] [place]) Dr. Oumou Cho MD documented in this encounter [facility] 02-04-2022 Note [facility] 02-04-2022 Miscellaneous Notes [facility] lab calls w/ critical lab results: Hgb 6.8 Hct 21.1 Pt identifiers and results read back for verification. Pt scheduled for 2 units RBCs tomorrow, 02/05. Angle Kamara RN documented in this encounter [facility] 02-04-2022 Miscellaneous Notes 2 units packed RBC's at [facility] on 02-05 8am. He is stopping for lab draw today. Orders and cbc were faxed to [facility]. documented in this encounter [facility] 02-04-2022 History of Present illness Narrative VS taken. States he is here because he feels very fatigued and slightly more short of breath. Wants to f/u with his hgb from this am. Hgb 6.8. Dr. Hummel made aware of results and assessment. Pt will be receiving order for a transfusion and Informed of plan. Pt agrees. documented in this encounter [facility] 01-30-2022 Note HNO ID: [id number] Author: Miriam Elizabeth RN Service: ? Author Type: Registered Nurse Type: Progress Notes Filed: 01/30/2022 3:44 PM Note Text: Pt denies need for transfusion today, states he will call if his symptoms get worse. Miriam Elizabeth RN [facility] 01-30-2022 History of Present illness Narrative Pt denies need for transfusion today, states he will call if his symptoms get worse. Miriam Elizabeth RN documented in this encounter [facility] 01-21-2022 Note HNO ID: [id number] Author: Celena Lind RN Service: ? Author Type: Registered Nurse Type: Progress Notes Filed: 01/21/2022 3:53 PM Note Text: Cr 1.[address] Watt. Pt given 500 mls NS. [facility] 01-21-2022 History of Present illness Narrative Cr 1.[address] Watt. Pt given 500 mls NS. documented in this encounter [facility] 01-18-2022 Note [facility] 01-18-2022 History of Present illness Narrative Repeat Cr 2.[address] Watt by lead rn gilson Elizabeht. Pt will receive 1 L NS today and return sunday 01/21 for repeat labs. documented in this encounter [facility] 01-14-2022 Note HNO ID: [id number] Author: Lexi Velasquez RN Service: ? Author Type: Registered Nurse Type: Progress Notes Filed: 01/14/2022 3:44 PM Note Text: [facility] 01-14-2022 Note [facility] 01-14-2022 Miscellaneous Notes Cr 2.13 [facility] with [facility], pt to increase oral fluids at home, we will recheck a CMP on 01/17. Please sign pending order is agreeable. Thanks! Miriam Elizabeth RN documented in this encounter [facility] 01-14-2022 Miscellaneous Notes Pt scheduled for 1 unit of PRBCs TB Friday (01/16) @ 900am. Type and cross tomorrow (01/15). Confirmed with pt, order faxed. documented in this encounter [facility] 01-14-2022 History of Present illness Narrative documented in this encounter [facility] 01-14-2022 History of Present illness Narrative Images from the original note were not included. NAME: Sandip Broussard CLINIC NO.: [id number] DATE OF SERVICE: January 14, 2022 Some elements in this clinic note that are critical to medical decision making have been carefully reviewed and included from a prior clinic note dated: December 17, 2021 Referring Provider: Dr. Flash Pearl Additional Clinicians involved in Sandip Broussard's care: Dr. José Luis Velasquez, Dr. Oumou Wade CC: Follow up ASSESSMENT:81 year old year old man with MDS, stage 4 chronic kidney disease and iron deficiency anemia d/t GI blood loss (seen on capsule endoscopy) and epistaxis. Was receiving high dose EPO every 2 weeks with periodic iron infusions. With persisting cytopenia we started him on Vidaza low dose to see if we can positively impact his pancytopenia and reduce his fatigue as well as his Epo usage. Unfortunately he suffered an acute [place] 11/23/2021 and also developed another GI bleed. He was transfused, and medically managed after catheterization. 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 PLAN: 1. Proceed with C7 Vidaza D1-5 2. Transfuse in [facility] this week 1 unit 3. Continue Retacrit q 2 weeks - labs every weeks 4. RTC in 4 weeks for C8 Vidaza TREATMENT TO DATE: 3. 07/09/2021 - Current: Vidaza D1-5 q 28. 2. Retacrit 80,000 units every other week 1. Intermittent IV Iron HPI: Updated Visit, January 14, 2022: Lloyd in good spirit returns to continue treatments for MDS. I think we are making some progress as we haven't had to transfuse him in 4 weeks. WBC counts always start low at the beginning of each cycle but after D5, improve significantly. Hasn't been transfused for 4 weeks - anticipate need this week. Using BiPap and can sleep in bed now. Updated Visit, December 17, 2021: Lloyd is 81 years old and returns with his Lissette in follow-up. He feels much better having had several units transfused and now has a hemoglobin of 10.2. We revisited the discussion of pursuing treatment versus hospice and he is still indeterminant. We discussed pursuing a few more cycles and then reconsidering at that time. He does have some evidence of improvement with improving white blood cell count as well as platelet count improvement. He feels really good following his transfusion and wishes to proceed. Updated Visit, November 29, 2021: Lloyd returns unfortunately had Afib and heart failure with AMI and significant MV regurg. Fatigued. Will consider Hospice. Hold treatment for now and reconsider in 3-4 weeks. Also recovering from pneumonia. Reviewed outside records. Updated Visit, October 25, 2021: Sandip Broussard returns for scheduled follow up. He states that he is feeling slow . He has shortness of breath all the time. He denies any dizziness. He denies any abnormal blood loss. Updated Visit, October 01, 2021: Lloyd is 80 years old and returns with his Lissette for treatment with low-dose Vidaza. He appears to be having some response with improving platelet counts. His only complaints are that of increased abdominal gas. He is otherwise doing well. Continue Retacrit and treatment as recommended. He is safe to proceed. Sees ENT next week No more nose bleeds after stopping Eliquis. Updated Visit, September 17, 2021: Sandip Broussard returns for scheduled follow-up. Since his last visit there has been no significant medical changes. He denies bleeding and abnormal bruising. He denies fevers, chills, night sweats and signs/symptoms of infection. Overall, he feels fairly well. Updated Visit, September 03, 2021: BP improved. Labs stable and platelets have recovered. Was transfused last week and feels better. Neutropenia is disease related and we will continue with treatment. Continue retacrit as Ordered. Transfuse periodically. Updated Visit, August 24, 2021: Lloyd returns today prior to Retacrit during his 2 weeks following Vidaza. Has been having some pain at the base of his skull and is having some dizziness. BP is low - stop Norvasc and Hytrin, and hold Aldactone for now. It is their anniversary today - 49th! Updated Visit, August 06, 2021: Lloyd returns today for follow up and cycle 2 of vidaza. Feeling well. Ran out of his diuretic for a week and had some JANG. Was able to get his medications refilled and is feeling better now. No swelling, chest pain, dizziness, fever, chills or other concerning symptoms. Updated Visit, July 19, 2021: Sandip Broussard returns for follow-up. He received his first cycle of Vidaza 07/09/2021 through 07/13/2021. Overall, he tolerated treatment well without any side effects. He is doing well today and offers no new particular complaints. Updated Visit, July 09, 2021: Hasn't required transfusion since 06/2020. Still profoundly anemic despite adequate dosing of aranesp for CKD. Will proceed with low dose Vidaza. Reviewed plan and goals again. Updated Visit, May 31, 2021: EPO was increased to 80,000 units about 2 weeks ago. Feels the same. reports he still spends most of his day on the couch napping. Patient denies any bleeding. Does have diarrhea, which he has had for over 3 months. 2 loose stools a day. Afraid to go places because of the urgency a/w it. Patient denies bleeding. Does not want to see GI at this time. Has not taken anything for it. No new medications. Updated Visit, May 02, 2021: Lloyd returns with his Lissette and reports that he can't exert himself too much but can get out to the barn and doesn't get dizzy anymore. Still not responding as robustly to increased EPO, so will increase to 80k every 2 weeks. Updated Visit, March 07, 2021: Lloyd returns with his Lissette and was seen by Dr. Wade approximately 1 week ago from ENT. Patient was a little bit confused on instructions given and so I reviewed the recommendations and clarified for Lloyd exactly what his regimen should be. This includes stopping Eliquis as well as aspirin. He appears to be stable from a laboratory perspective but continues to have low platelets and generalized pancytopenia. We discussed again, the goal of his treatment and interventions to be palliative as he requested. He feels well today. Updated Visit, February 21, 2021: Nose bleed Friday- ER plugged it up but then went back on Friday hospitalized until this morning Still seeping blood. Operated on nose- surgery w/ Dr. Marshall Last fall in [place]. Has tranexamic acid at home. Requesting ENT referral at [facility]. He is dehydrated and not keeping up with fluids. Partition Setter is elevated exacerbating cause was likely letting his CPAP reservoir go dry. Ferritin is coming down. Updated Visit, January 10, 2021: Lloyd is here for follow up. After review of his chart, he has stage IV ckd and presented with pancytopenia, including significant anemia requiring transfusion due to GI bleeding and nose bleeds. 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 He has received IV iron in the past along with retacrit, which he is currently receiving every other week. Current goal is quality of life with the least amount visits. He did just have a nose bleed on Friday, and it didn't last long. He made his own plug and kept it in his nose for 24 hours and no additional bleeding. He is taking his eliquis one pill daily, but he held it the last two days due to the nose bleed. He is not on aspirin. Overall he feels well and offers no complaints of significant fatigue, shortness of breath, cough, fever, chills or signs of infections. Updated Visit, November 15, 2020: Sandip Broussard returns for follow-up. He remains on Retacrit 40,000 units every 2 weeks and is tolerating it well. Recently he has noticed pain in the back of his neck. He experienced this same pain when his hemoglobin was low in the past. He states that he takes Tylenol with improvement in the pain. He denies any signs of bleeding. He states that his bruising is better. He is still taking the Eliquis daily at the recommendation of his fashion model. Since stopping the aspirin he has not had any further nosebleeds. He denies fevers, chills, night sweats and signs/symptoms of infection. He has persistent exertional shortness of breath. Updated Visit, September 20, 2020: Lloyd is 79 and returns with his Lissette for discussion on his overall condition as well as his rec to have watchman for A-fib. However, our discussion reveals that he really doesn't want to do anything and that he also doesn't want to take full dose anticoagulation. I pressed him and verified that his goals were to focus on quality of life and get minimally involved in medical procedures. We will continue to monitor his counts and transfuse or give iron and retacrit as necessary, but minimize his follow ups. Updated Visit, August 23, 2020: Lloyd is 79 years old and returns with his Lissette today for multifactorial anemia. His GI bleed was finally found and addressed. They brought in a cake to share in their celebration of their anniversary and Nicki's birthday. He reports that he is no longer lightheaded. Still some fatigue. Now will need Aranesp replacement and iron x 1. He may need low dose dacogen in the future if he is unresponsive. Updated visit, July 26, 2020: Lloyd is 79 years old and returns with his Lissette today having had a capsule endoscopy which was positive for GI bleed. This was stopped and he is now recovering from his blood loss anemia. We will continue supporting him with IV iron as needed but for now we will hold off he will continue need B12 and folic acid. He still has underlying myelodysplasia and stage IV chronic kidney disease which is contributing to his anemia but Corine is not bleeding any longer. Updated Visit, July 03, 2020: Lloyd is 79 years old and returns with his Lissette again requiring additional transfusions because of significantly low hemoglobin. I reviewed his bone marrow biopsy with him which is consistent with myelodysplastic syndrome but he has ongoing melena that is highly suspicious for a GI bleed. To date his endoscopic work-up has been negative but he is due to have a capsule endoscopy that hopefully will reveal the cause of his cytopenias. He feels weak and is in a wheelchair today. Updated Visit, June 15, 2020: Conducted by telephone. Sandip Broussard is a 79 year old male seen for pancytopenia recently having had bone marrow biopsy that is most consistent with. 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 Hopefully his iron deficiency can be corrected and perhaps any evidence of GI bleeding can be attenuated. He sees gastroenterology next week. He may need transfusion support before the weekend even though he was just transfused his 17th unit 2 days ago. I reviewed his bone marrow biopsy results with him and his Lissette in some detail. His erythropoietin level is markedly elevated indicating that supplementation would not help and that his renal failure is not contributing to his anemia. Initial Visit, May 29, 2020: Sandip Broussard presents today Hematology and Oncology evaluation. He is a 79 year old male who is accompanied by his Lissette on urgent referral from Dr. Flash Pearl for pancytopenia, hemoglobin of 5 with both recent EGD and colonoscopy demonstrating no evidence of active bleeding but slight chronic gastritis. He also had several epistaxes as blood to the point of requiring transfusions causing lightheadedness and unsteadiness. Patient states he has had black stools since July 2019. So far extensive work-up has been unrevealing. He has had recent hospitalization and was released on 05/26/2020. Full work-up at that time revealed an adequate erythropoietin response despite elevated creatinine and stage III chronic kidney disease. However his white blood cell count remains suppressed as does his platelet count of less than 100,000. Indeed, his epistaxis may be the cause of his melanotic stools but warrants another look and additionally he will need a bone marrow biopsy. His coags are normal. His red blood cell indices only indicate hypochromasia and macrocytosis. Patient had a bleeding scan that was negative as well. REVIEW OF SYSTEMS Per HPI and otherwise negative by full review of organ systems. ECOG PERFORMANCE STATUS: 1 PHYSICAL EXAMINATION: Vitals: BP 126/73 Pulse 64 Temp (Src) 97.2 (Temporal) Resp 16 Ht 5' 5.039 (1.65m) Wt 238 lb 6.4 oz (108.1kg) SpO2 98[oxygen set at 2 liters today]% BMI 39.62 kg/(m^2). Body surface area is 2.23 meters squared. Exam limited to gross visualization where appropriate due to COVID-19. Gen.: This is an age-appropriate patient in no acute distress. In a wheelchair and is on oxygen. Head: Appears atraumatic with no visible lesions. Eyes: Pupils equally round and reactive to light, extraocular muscles are intact. Neck: Supple. Mouth: Masked. Respiratory: Appears to be respiring comfortably. Neurologic: Nonfocal to gross visualization. Alert and oriented 3. Psychiatric: No evidence of inappropriate anxiety or depression. Skin: Visible areas of skin without rash, lesions, wounds or petechiae. ALLERGIES: ALLERGIES Allergen Reactions Bee Stings [Other] large hives, swelling at site Coreg [Carvedilol] Hives MEDICATIONS: bumetanide (BUMEX) 1 mg tablet potassium chloride SR (MICRO-K) 10 mEq CR capsule FARXIGA 10 mg tablet metoprolol succinate ER (TOPROL XL) 50 mg 24 hr tablet Take 50 mg by mouth once daily. spironolactone (ALDACTONE) 25 mg tablet Take 25 mg by mouth once daily. aspirin 81 mg chewable tablet CHEW 1 TABLET BY MOUTH EVERY DAY terazosin (HYTRIN) 5 mg capsule Take 5 mg by mouth daily at bedtime. Omeprazole-Sodium Bicarbonate 40-1,680 mg pack Take by mouth. sucralfate (CARAFATE) 1 gram tablet Take 1 g by mouth four times daily. [facility] NASAL OINTMENT Apply to affected area twice daily. atorvastatin (LIPITOR) 20 mg tablet Take 1 tablet by mouth daily at bedtime. colchicine 0.6 mg tablet Take 0.6 mg by mouth as needed. As needed 1-2 times/week lisinopril (ZESTRIL, PRINIVIL) 10 mg tablet Take 1 tablet by mouth once daily. Please resume this medication after PCP follow up ONETOUCH DELICA PLUS LANCET 33 gauge glipiZIDE (GLUCOTROL) 5 mg tablet Take 5 mg by mouth once daily. ONETOUCH ULTRA BLUE TEST STRIP test strip cholecalciferol (VITAMIN D3) 1,000 unit tab tablet 1,000 Units once daily. ciprofloxacin HCl (CIPRO) 500 mg tablet Take 500 mg by mouth once daily. LABORATORY VALUES: WBC (k/uL) Date Value 01/14/2022 1.96 (L) RBC (m/uL) Date Value 01/14/2022 2.09 (L) Hemoglobin (g/dL) Date Value 01/14/2022 7.3 (L) Hematocrit (%) Date Value 01/14/2022 23.4 (L) MCV (fL) Date Value 01/14/2022 112.0 (H) MCH (pg) Date Value 01/14/2022 34.9 (H) MCHC (g/dL) Date Value 01/14/2022 31.2 RDW-CV (%) Date Value 01/14/2022 23.8 (H) Platelet Count (k/uL) Date Value 01/14/2022 155 MPV (fL) Date Value 01/14/2022 12.8 (H) Glucose (mg/dL) Date Value 01/14/2022 216 (H) BUN (mg/dL) Date Value 01/14/2022 26 (H) Creatinine (mg/dL) Date Value 01/14/2022 2.13 (H) Sodium (mmol/L) Date Value 01/14/2022 142 Potassium (mmol/L) Date Value 01/14/2022 4.4 Chloride (mmol/L) Date Value 01/14/2022 104 CO2 (mmol/L) Date Value 01/14/2022 27 Protein, Total (g/dL) Date Value 01/14/2022 6.1 (L) Albumin (g/dL) Date Value 01/14/2022 4.0 Calcium, Total (mg/dL) Date Value 01/14/2022 9.0 Alkaline Phosphatase (U/L) Date Value 01/14/2022 70 Bilirubin, Total (mg/dL) Date Value 01/14/2022 0.5 AST (U/L) Date Value 01/14/2022 10 (L) ALT (U/L) Date Value 01/14/2022 14 Cholesterol, Total (mg/dL) Date Value 06/27/2005 153 Triglyceride (mg/dL) Date Value 06/27/2005 144 DIAGNOSIS: (D46.9) Myelodysplastic syndrome (HCC) (primary encounter diagnosis) Plan: DISCONTINUED: dexAMETHasone 10 mg tab(s) (DECADRON), DISCONTINUED: azaCITIDine 161.25 mg in sterile water 6.45 mL (VIDAZA), DISCONTINUED: NaCl 0.9% iv infusion, DISCONTINUED: diphenhydrAMINE 50 mg injection (BENADRYL), DISCONTINUED: hydrocortisone sodium succinate (PF) 100 mg injection (Solu-CORTEF), DISCONTINUED: EPINEPHrine 1 mg/mL (1 mL) 0.3 mg injection, DISCONTINUED: dexAMETHasone 10 mg tab(s) (DECADRON), DISCONTINUED: azaCITIDine 161.25 mg in sterile water 6.45 mL (VIDAZA) (N18.4) CRF (chronic renal failure), stage 4 (severe) (HCC) (D50.0) 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 loss (I50.41) 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) PAST MEDICAL HISTORY Diagnosis Date Anemia Anemia of chronic renal failure, stage 4 (severe) (HCC) 08/23/2020 Atrial fibrillation (HCC) Chronic kidney disease CRF (chronic renal failure), stage 4 (severe) (HCC) 08/23/2020 Diabetes mellitus (HCC) GI bleed Hypertension 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 loss 06/15/2020 Leukopenia Sleep apnea Thrombocytopenia (HCC) PAST SURGICAL HISTORY Procedure Laterality Date COLONOSCOPY Social History Tobacco Use Smoking status: Former Smoker Years: 45.00 Types: Pipe Quit date: 1994 Years since quittin.4 Smokeless tobacco: Never Used Vaping Use Vaping Use: Never used Substance Use Topics Alcohol use: Not Currently Drug use: Not on file I spent a total of 35 minutes on the date of the service which included preparing to see the patient, [id number] patient care, completing clinical documentation, performing a medically appropriate examination and ordering medications, tests, or procedures. Asher Hummel MD, CPE Services Provided at: [place], [place] & [place], [place] CC: Dr. Flash Gomez (Cardiology [facility]) Dr. Oumou Cho MD documented in this encounter [facility] 01-07-2022 Nurse Note Patient Identification confirmed: yes. Injection given and documented on SEP per provider order. Kathy Morelos Ma documented in this encounter [facility] 01-02-2022 Miscellaneous Notes Added patient to the next appointment for b12 Reasonab;e tp include b12 Pt in for Retacrit today, is asking about B12 injections. There is no mention of adding B12 anywhere and there are no orders. There is a handwritten note on the pt's last appt schedule that says B12 injection next to the 12/31 appt. Can you please confirm or deny that pt is to receive B12 or not. Thanks! Miriam Elizabeth RN documented in this encounter [facility] 12-21-2021 History of Present illness Narrative 10 documented in this encounter [facility] 12-17-2021 History of Present illness Narrative Patient states he was recently in the [facility] for a mild heart attack, was released. Then was admitted a few days later to the [facility] for fluid on his lungs. States they removed it and he is feeling much better. Patient states he has had to wear his oxygen all the time since his admission to the [facility]. Did not wear his in to the facility today bc he didn;t feel like he needed it . Then his Pulse ox was low and we had to put ours on him. Encouraged patient to wear his oxygen at all times. Lexi Velasquez RN Patient spouse would like to be called prior to him finishing treatment [phone] Erica Bain RN documented in this encounter [facility] 12-17-2021 History of Present illness Narrative Images from the original note were not included. NAME: Sandip Broussard CLINIC NO.: [id number] DATE OF SERVICE: December 17, 2021 Some elements in this clinic note that are critical to medical decision making have been carefully reviewed and included from a prior clinic note dated: November 29, 2021 Referring Provider: Dr. Flash Pearl Additional Clinicians involved in Sandip Broussard's care: Dr. José Luis Velasquez, Dr. Oumou Wade CC: Follow up ASSESSMENT:81 year old year old man with MDS, stage 4 chronic kidney disease and iron deficiency anemia d/t GI blood loss (seen on capsule endoscopy) and epistaxis. Was receiving high dose EPO every 2 weeks with periodic iron infusions. With persisting cytopenia we started him on Vidaza low dose to see if we can positively impact his pancytopenia and reduce his fatigue as well as his Epo usage. Unfortunately he suffered an acute [place] 11/23/2021 and also developed another GI bleed. He was transfused, and medically managed after catheterization. 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 PLAN: 1. Resume treatment C6 , retacrit today and every 2 weeks 2. Will reconsider after C9 to continue 3. RTC in 4 weeks - C7 Vidaza. 4. Weekly labs 5. Strongly recommend using BiPAP regardless of sleeping in living room or bedroom TREATMENT TO DATE: 3. 07/09/2021 - Current: Vidaza D1-5 q 28. 2. Retacrit 80,000 units every other week 1. Intermittent IV Iron HPI: Updated Visit, December 17, 2021: Don is 81 years old and returns with his Lissette in follow-up. He feels much better having had several units transfused and now has a hemoglobin of 10.2. We revisited the discussion of pursuing treatment versus hospice and he is still indeterminant. We discussed pursuing a few more cycles and then reconsidering at that time. He does have some evidence of improvement with improving white blood cell count as well as platelet count improvement. He feels really good following his transfusion and wishes to proceed. Updated Visit, November 29, 2021: Lloyd returns unfortunately had Afib and heart failure with AMI and significant MV regurg. Fatigued. Will consider Hospice. Hold treatment for now and reconsider in 3-4 weeks. Also recovering from pneumonia. Reviewed outside records. Updated Visit, October 25, 2021: Sandip Broussard returns for scheduled follow up. He states that he is feeling slow . He has shortness of breath all the time. He denies any dizziness. He denies any abnormal blood loss. Updated Visit, October 01, 2021: Lloyd is 80 years old and returns with his Lissette for treatment with low-dose Vidaza. He appears to be having some response with improving platelet counts. His only complaints are that of increased abdominal gas. He is otherwise doing well. Continue Retacrit and treatment as recommended. He is safe to proceed. Sees ENT next week No more nose bleeds after stopping Eliquis. Updated Visit, September 17, 2021: Sandip Broussard returns for scheduled follow-up. Since his last visit there has been no significant medical changes. He denies bleeding and abnormal bruising. He denies fevers, chills, night sweats and signs/symptoms of infection. Overall, he feels fairly well. Updated Visit, September 03, 2021: BP improved. Labs stable and platelets have recovered. Was transfused last week and feels better. Neutropenia is disease related and we will continue with treatment. Continue retacrit as Ordered. Transfuse periodically. Updated Visit, August 24, 2021: Lloyd returns today prior to Retacrit during his 2 weeks following Vidaza. Has been having some pain at the base of his skull and is having some dizziness. BP is low - stop Norvasc and Hytrin, and hold Aldactone for now. It is their anniversary today - 49th! Updated Visit, August 06, 2021: Lloyd returns today for follow up and cycle 2 of vidaza. Feeling well. Ran out of his diuretic for a week and had some JANG. Was able to get his medications refilled and is feeling better now. No swelling, chest pain, dizziness, fever, chills or other concerning symptoms. Updated Visit, July 19, 2021: Sandip Broussard returns for follow-up. He received his first cycle of Vidaza 07/09/2021 through 07/13/2021. Overall, he tolerated treatment well without any side effects. He is doing well today and offers no new particular complaints. Updated Visit, July 09, 2021: Hasn't required transfusion since 06/2020. Still profoundly anemic despite adequate dosing of aranesp for CKD. Will proceed with low dose Vidaza. Reviewed plan and goals again. Updated Visit, May 31, 2021: EPO was increased to 80,000 units about 2 weeks ago. Feels the same. reports he still spends most of his day on the couch napping. Patient denies any bleeding. Does have diarrhea, which he has had for over 3 months. 2 loose stools a day. Afraid to go places because of the urgency a/w it. Patient denies bleeding. Does not want to see GI at this time. Has not taken anything for it. No new medications. Updated Visit, May 02, 2021: Lloyd returns with his Lissette and reports that he can't exert himself too much but can get out to the barn and doesn't get dizzy anymore. Still not responding as robustly to increased EPO, so will increase to 80k every 2 weeks. Updated Visit, March 07, 2021: Lloyd returns with his Lissette and was seen by Dr. Wade approximately 1 week ago from ENT. Patient was a little bit confused on instructions given and so I reviewed the recommendations and clarified for Lloyd exactly what his regimen should be. This includes stopping Eliquis as well as aspirin. He appears to be stable from a laboratory perspective but continues to have low platelets and generalized pancytopenia. We discussed again, the goal of his treatment and interventions to be palliative as he requested. He feels well today. Updated Visit, February 21, 2021: Nose bleed Friday- ER plugged it up but then went back on Friday hospitalized until this morning Still seeping blood. Operated on nose- surgery w/ Dr. Marshall Last fall in [place]. Has tranexamic acid at home. Requesting ENT referral at [facility]. He is dehydrated and not keeping up with fluids. Partition Setter is elevated exacerbating cause was likely letting his CPAP reservoir go dry. Ferritin is coming down. Updated Visit, January 10, 2021: Lloyd is here for follow up. After review of his chart, he has stage IV ckd and presented with pancytopenia, including significant anemia requiring transfusion due to GI bleeding and nose bleeds. 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 He has received IV iron in the past along with retacrit, which he is currently receiving every other week. Current goal is quality of life with the least amount visits. He did just have a nose bleed on Friday, and it didn't last long. He made his own plug and kept it in his nose for 24 hours and no additional bleeding. He is taking his eliquis one pill daily, but he held it the last two days due to the nose bleed. He is not on aspirin. Overall he feels well and offers no complaints of significant fatigue, shortness of breath, cough, fever, chills or signs of infections. Updated Visit, November 15, 2020: Sandip Broussard returns for follow-up. He remains on Retacrit 40,000 units every 2 weeks and is tolerating it well. Recently he has noticed pain in the back of his neck. He experienced this same pain when his hemoglobin was low in the past. He states that he takes Tylenol with improvement in the pain. He denies any signs of bleeding. He states that his bruising is better. He is still taking the Eliquis daily at the recommendation of his fashion model. Since stopping the aspirin he has not had any further nosebleeds. He denies fevers, chills, night sweats and signs/symptoms of infection. He has persistent exertional shortness of breath. Updated Visit, September 20, 2020: Lloyd is 79 and returns with his Lissette for discussion on his overall condition as well as his rec to have watchman for A-fib. However, our discussion reveals that he really doesn't want to do anything and that he also doesn't want to take full dose anticoagulation. I pressed him and verified that his goals were to focus on quality of life and get minimally involved in medical procedures. We will continue to monitor his counts and transfuse or give iron and retacrit as necessary, but minimize his follow ups. Updated Visit, August 23, 2020: Lloyd is 79 years old and returns with his Lissette today for multifactorial anemia. His GI bleed was finally found and addressed. They brought in a cake to share in their celebration of their anniversary and Nicki's birthday. He reports that he is no longer lightheaded. Still some fatigue. Now will need Aranesp replacement and iron x 1. He may need low dose dacogen in the future if he is unresponsive. Updated visit, July 26, 2020: Lloyd is 79 years old and returns with his Lissette today having had a capsule endoscopy which was positive for GI bleed. This was stopped and he is now recovering from his blood loss anemia. We will continue supporting him with IV iron as needed but for now we will hold off he will continue need B12 and folic acid. He still has underlying myelodysplasia and stage IV chronic kidney disease which is contributing to his anemia but Corine is not bleeding any longer. Updated Visit, July 03, 2020: Lloyd is 79 years old and returns with his Lissette again requiring additional transfusions because of significantly low hemoglobin. I reviewed his bone marrow biopsy with him which is consistent with myelodysplastic syndrome but he has ongoing melena that is highly suspicious for a GI bleed. To date his endoscopic work-up has been negative but he is due to have a capsule endoscopy that hopefully will reveal the cause of his cytopenias. He feels weak and is in a wheelchair today. Updated Visit, June 15, 2020: Conducted by telephone. Sandip Broussard is a 79 year old male seen for pancytopenia recently having had bone marrow biopsy that is most consistent with. 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 Hopefully his iron deficiency can be corrected and perhaps any evidence of GI bleeding can be attenuated. He sees gastroenterology next week. He may need transfusion support before the weekend even though he was just transfused his 17th unit 2 days ago. I reviewed his bone marrow biopsy results with him and his Lissette in some detail. His erythropoietin level is markedly elevated indicating that supplementation would not help and that his renal failure is not contributing to his anemia. Initial Visit, May 29, 2020: Sandip Broussard presents today Hematology and Oncology evaluation. He is a 79 year old male who is accompanied by his Lissette on urgent referral from Dr. Flash Pearl for pancytopenia, hemoglobin of 5 with both recent EGD and colonoscopy demonstrating no evidence of active bleeding but slight chronic gastritis. He also had several epistaxes as blood to the point of requiring transfusions causing lightheadedness and unsteadiness. Patient states he has had black stools since July 2019. So far extensive work-up has been unrevealing. He has had recent hospitalization and was released on 05/26/2020. Full work-up at that time revealed an adequate erythropoietin response despite elevated creatinine and stage III chronic kidney disease. However his white blood cell count remains suppressed as does his platelet count of less than 100,000. Indeed, his epistaxis may be the cause of his melanotic stools but warrants another look and additionally he will need a bone marrow biopsy. His coags are normal. His red blood cell indices only indicate hypochromasia and macrocytosis. Patient had a bleeding scan that was negative as well. REVIEW OF SYSTEMS Per HPI and otherwise negative by full review of organ systems. ECOG PERFORMANCE STATUS: 1 PHYSICAL EXAMINATION: Vitals: BP 114/53 Pulse 59 Temp (Src) 97.3 (Temporal) Resp 16 Ht 5' 5.039 (1.65m) Wt 223 lb 3.2 oz (101.2kg) SpO2 88[O2 @ 3L when he is using it]% BMI 37.10 kg/(m^2). Body surface area is 2.15 meters squared. Exam limited to gross visualization where appropriate due to COVID-19. Gen.: This is an age-appropriate patient in no acute distress. In a wheelchair and is on oxygen. Head: Appears atraumatic with no visible lesions. Eyes: Pupils equally round and reactive to light, extraocular muscles are intact. Neck: Supple. Mouth: Masked. Respiratory: Appears to be respiring comfortably. Neurologic: Nonfocal to gross visualization. Alert and oriented 3. Psychiatric: No evidence of inappropriate anxiety or depression. Skin: Visible areas of skin without rash, lesions, wounds or petechiae. ALLERGIES: ALLERGIES Allergen Reactions Bee Stings [Other] large hives, swelling at site Coreg [Carvedilol] Hives MEDICATIONS: ciprofloxacin HCl (CIPRO) 500 mg tablet Take 500 mg by mouth once daily. FARXIGA 10 mg tablet metoprolol succinate ER (TOPROL XL) 50 mg 24 hr tablet Take 50 mg by mouth once daily. spironolactone (ALDACTONE) 25 mg tablet Take 25 mg by mouth once daily. bumetanide (BUMEX) 2 mg tablet Take 2 mg by mouth once daily. aspirin 81 mg chewable tablet CHEW 1 TABLET BY MOUTH EVERY DAY terazosin (HYTRIN) 5 mg capsule Take 5 mg by mouth daily at bedtime. Omeprazole-Sodium Bicarbonate 40-1,680 mg pack Take by mouth. sucralfate (CARAFATE) 1 gram tablet Take 1 g by mouth four times daily. [facility] NASAL OINTMENT Apply to affected area twice daily. atorvastatin (LIPITOR) 20 mg tablet Take 1 tablet by mouth daily at bedtime. colchicine 0.6 mg tablet Take 0.6 mg by mouth as needed. As needed 1-2 times/week ONETOUCH DELICA PLUS LANCET 33 gauge glipiZIDE (GLUCOTROL) 5 mg tablet Take 5 mg by mouth once daily. ONETOUCH ULTRA BLUE TEST STRIP test strip cholecalciferol (VITAMIN D3) 1,000 unit tab tablet 1,000 Units once daily. potassium chloride SR (MICRO-K) 10 mEq CR capsule lisinopril (ZESTRIL, PRINIVIL) 10 mg tablet Take 1 tablet by mouth once daily. Please resume this medication after PCP follow up LABORATORY VALUES: 12/17/2021: Sodium 145, potassium 3.4, BUN 30, Partition Setter. 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) PAST MEDICAL HISTORY Diagnosis Date Anemia Anemia of chronic renal failure, stage 4 (severe) (HCC) 08/23/2020 Atrial fibrillation (HCC) Chronic kidney disease CRF (chronic renal failure), stage 4 (severe) (HCC) 08/23/2020 Diabetes mellitus (HCC) GI bleed Hypertension 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 loss 06/15/2020 Leukopenia Sleep apnea Thrombocytopenia (HCC) PAST SURGICAL HISTORY Procedure Laterality Date COLONOSCOPY Social History Tobacco Use Smoking status: Former Smoker Years: 45.00 Types: Pipe Quit date: 1994 Years since quittin.4 Smokeless tobacco: Never Used Vaping Use Vaping Use: Never used Substance Use Topics Alcohol use: Not Currently Drug use: Not on file I spent a total of 35 minutes on the date of the service which included preparing to see the patient, [id number] patient care, completing clinical documentation, obtaining and/or reviewing separately obtained history, performing a medically appropriate examination, counseling and educating the patient/family/caregiver and ordering medications, tests, or procedures. Asher Hummel MD, CPE Services Provided at: [place], [place] & [place], [place] CC: Dr. Flash Gomez (Cardiology [facility] [place]) Dr. Oumou Cho MD documented in this encounter [facility] 11-29-2021 History of Present illness Narrative Images from the original note were not included. NAME: Sandip Broussard [facility] NO.: [id number] DATE OF SERVICE: November 29, 2021 Some elements in this clinic note that are critical to medical decision making have been carefully reviewed and included from a prior clinic note dated: October 25, 2021 Referring Provider: Dr. Flash Pearl Additional Clinicians involved in Sandip Broussard's care: Dr. José Luis Velasquez, Dr. Oumou Wade CC: Follow up ASSESSMENT:80 year old year old man with MDS, stage 4 chronic kidney disease and iron deficiency anemia d/t GI blood loss (seen on capsule endoscopy) and epistaxis. Was receiving high dose EPO every 2 weeks with periodic iron infusions. With persisting cytopenia we started him on Vidaza low dose to see if we can positively impact his pancytopenia and reduce his fatigue as well as his Epo usage. Unfortunately he suffered an acute [place] 11/23/2021 and also developed another GI bleed. He was transfused, and medically managed after catheterization. 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 PLAN: 1. Hold Vidaza for 3 weeks (RTC in 3+ weeks on a Friday for possible start) 2. Consider Hospice - contact [facility] (current Home Health) 3. RTC in 3 weeks to discuss - need 30 minutes 4. Strongly recommend using BiPAP regardless of sleeping in living room or bedroom TREATMENT TO DATE: 3. 07/09/2021 - Current: Vidaza D1-5 q 28. 2. Retacrit 80,000 units every other week 1. Intermittent IV Iron HPI: Updated Visit, November 29, 2021: Lloyd returns unfortunately had Afib and heart failure with AMI and significant MV regurg. Fatigued. Will consider Hospice. Hold treatment for now and reconsider in 3-4 weeks. Also recovering from pneumonia. Reviewed outside records. Updated Visit, October 25, 2021: Sandip Broussard returns for scheduled follow up. He states that he is feeling slow . He has shortness of breath all the time. He denies any dizziness. He denies any abnormal blood loss. Updated Visit, October 01, 2021: Lloyd is 80 years old and returns with his Lissette for treatment with low-dose Vidaza. He appears to be having some response with improving platelet counts. His only complaints are that of increased abdominal gas. He is otherwise doing well. Continue Retacrit and treatment as recommended. He is safe to proceed. Sees ENT next week No more nose bleeds after stopping Eliquis. Updated Visit, September 17, 2021: Sandip Broussard returns for scheduled follow-up. Since his last visit there has been no significant medical changes. He denies bleeding and abnormal bruising. He denies fevers, chills, night sweats and signs/symptoms of infection. Overall, he feels fairly well. Updated Visit, September 03, 2021: BP improved. Labs stable and platelets have recovered. Was transfused last week and feels better. Neutropenia is disease related and we will continue with treatment. Continue retacrit as Ordered. Transfuse periodically. Updated Visit, August 24, 2021: Lloyd returns today prior to Retacrit during his 2 weeks following Vidaza. Has been having some pain at the base of his skull and is having some dizziness. BP is low - stop Norvasc and Hytrin, and hold Aldactone for now. It is their anniversary today - 49! Updated Visit, August 06, 2021: Lloyd returns today for follow up and cycle 2 of vidaza. Feeling well. Ran out of his diuretic for a week and had some JANG. Was able to get his medications refilled and is feeling better now. No swelling, chest pain, dizziness, fever, chills or other concerning symptoms. Updated Visit, July 19, 2021: Sandip Broussard returns for follow-up. He received his first cycle of Vidaza 07/09/2021 through 07/13/2021. Overall, he tolerated treatment well without any side effects. He is doing well today and offers no new particular complaints. Updated Visit, July 09, 2021: Hasn't required transfusion since 06/2020. Still profoundly anemic despite adequate dosing of aranesp for CKD. Will proceed with low dose Vidaza. Reviewed plan and goals again. Updated Visit, May 31, 2021: EPO was increased to 80,000 units about 2 weeks ago. Feels the same. reports he still spends most of his day on the couch napping. Patient denies any bleeding. Does have diarrhea, which he has had for over 3 months. 2 loose stools a day. Afraid to go places because of the urgency a/w it. Patient denies bleeding. Does not want to see GI at this time. Has not taken anything for it. No new medications. Updated Visit, May 02, 2021: Lloyd returns with his Lissette and reports that he can't exert himself too much but can get out to the barn and doesn't get dizzy anymore. Still not responding as robustly to increased EPO, so will increase to 80k every 2 weeks. Updated Visit, March 07, 2021: Lloyd returns with his Lissette and was seen by Dr. Wade approximately 1 week ago from ENT. Patient was a little bit confused on instructions given and so I reviewed the recommendations and clarified for Lloyd exactly what his regimen should be. This includes stopping Eliquis as well as aspirin. He appears to be stable from a laboratory perspective but continues to have low platelets and generalized pancytopenia. We discussed again, the goal of his treatment and interventions to be palliative as he requested. He feels well today. Updated Visit, February 21, 2021: Nose bleed Friday- ER plugged it up but then went back on Friday hospitalized until this morning Still seeping blood. Operated on nose- surgery w/ Dr. Marshall Last fall in [place]. Has tranexamic acid at home. Requesting ENT referral at [facility]. He is dehydrated and not keeping up with fluids. Partition Setter is elevated exacerbating cause was likely letting his CPAP reservoir go dry. Ferritin is coming down. Updated Visit, January 10, 2021: Lloyd is here for follow up. After review of his chart, he has stage IV ckd and presented with pancytopenia, including significant anemia requiring transfusion due to GI bleeding and nose bleeds. 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 He has received IV iron in the past along with retacrit, which he is currently receiving every other week. Current goal is quality of life with the least amount visits. He did just have a nose bleed on Friday, and it didn't last long. He made his own plug and kept it in his nose for 24 hours and no additional bleeding. He is taking his eliquis one pill daily, but he held it the last two days due to the nose bleed. He is not on aspirin. Overall he feels well and offers no complaints of significant fatigue, shortness of breath, cough, fever, chills or signs of infections. Updated Visit, November 15, 2020: Sandip Broussard returns for follow-up. He remains on Retacrit 40,000 units every 2 weeks and is tolerating it well. Recently he has noticed pain in the back of his neck. He experienced this same pain when his hemoglobin was low in the past. He states that he takes Tylenol with improvement in the pain. He denies any signs of bleeding. He states that his bruising is better. He is still taking the Eliquis daily at the recommendation of his fashion model. Since stopping the aspirin he has not had any further nosebleeds. He denies fevers, chills, night sweats and signs/symptoms of infection. He has persistent exertional shortness of breath. Updated Visit, September 20, 2020: Lloyd is 79 and returns with his Lissette for discussion on his overall condition as well as his rec to have watchman for A-fib. However, our discussion reveals that he really doesn't want to do anything and that he also doesn't want to take full dose anticoagulation. I pressed him and verified that his goals were to focus on quality of life and get minimally involved in medical procedures. We will continue to monitor his counts and transfuse or give iron and retacrit as necessary, but minimize his follow ups. Updated Visit, August 23, 2020: Lloyd is 79 years old and returns with his Lissette today for multifactorial anemia. His GI bleed was finally found and addressed. They brought in a cake to share in their celebration of their anniversary and Nicki's birthday. He reports that he is no longer lightheaded. Still some fatigue. Now will need Aranesp replacement and iron x 1. He may need low dose dacogen in the future if he is unresponsive. Updated visit, July 26, 2020: Lloyd is 79 years old and returns with his Lissette today having had a capsule endoscopy which was positive for GI bleed. This was stopped and he is now recovering from his blood loss anemia. We will continue supporting him with IV iron as needed but for now we will hold off he will continue need B12 and folic acid. He still has underlying myelodysplasia and stage IV chronic kidney disease which is contributing to his anemia but Corine is not bleeding any longer. Updated Visit, July 03, 2020: Lloyd is 79 years old and returns with his Lissette again requiring additional transfusions because of significantly low hemoglobin. I reviewed his bone marrow biopsy with him which is consistent with myelodysplastic syndrome but he has ongoing melena that is highly suspicious for a GI bleed. To date his endoscopic work-up has been negative but he is due to have a capsule endoscopy that hopefully will reveal the cause of his cytopenias. He feels weak and is in a wheelchair today. Updated Visit, June 15, 2020: Conducted by telephone. Sandip Broussard is a 79 year old male seen for pancytopenia recently having had bone marrow biopsy that is most consistent with. 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 Hopefully his iron deficiency can be corrected and perhaps any evidence of GI bleeding can be attenuated. He sees gastroenterology next week. He may need transfusion support before the weekend even though he was just transfused his 17th unit 2 days ago. I reviewed his bone marrow biopsy results with him and his Lissette in some detail. His erythropoietin level is markedly elevated indicating that supplementation would not help and that his renal failure is not contributing to his anemia. Initial Visit, May 29, 2020: Sandip Broussard presents today Hematology and Oncology evaluation. He is a 79 year old male who is accompanied by his Lissette on urgent referral from Dr. Flash Pearl for pancytopenia, hemoglobin of 5 with both recent EGD and colonoscopy demonstrating no evidence of active bleeding but slight chronic gastritis. He also had several epistaxes as blood to the point of requiring transfusions causing lightheadedness and unsteadiness. Patient states he has had black stools since July 2019. So far extensive work-up has been unrevealing. He has had recent hospitalization and was released on 05/26/2020. Full work-up at that time revealed an adequate erythropoietin response despite elevated creatinine and stage III chronic kidney disease. However his white blood cell count remains suppressed as does his platelet count of less than 100,000. Indeed, his epistaxis may be the cause of his melanotic stools but warrants another look and additionally he will need a bone marrow biopsy. His coags are normal. His red blood cell indices only indicate hypochromasia and macrocytosis. Patient had a bleeding scan that was negative as well. REVIEW OF SYSTEMS Per HPI and otherwise negative by full review of organ systems. ECOG PERFORMANCE STATUS: 1 PHYSICAL EXAMINATION: Vitals: BP 134/51 Pulse 58 Temp (Src) 97.8 (Temporal) Resp 16 Ht 5' 5.039 (1.65m) Wt 0 lb (0.0kg) SpO2 99[O2 set at 3 liters today]% Body surface area is 2.24 meters squared. Exam limited to gross visualization where appropriate due to COVID-19. Gen.: This is an age-appropriate patient in no acute distress. In a wheelchair and is on oxygen. Looks fatigued. Head: Appears atraumatic with no visible lesions. Eyes: Pupils equally round and reactive to light, extraocular muscles are intact. Neck: Supple. Mouth: Masked. Respiratory: Appears to be respiring comfortably. Neurologic: Nonfocal to gross visualization. Alert and oriented 3. Psychiatric: No evidence of inappropriate anxiety or depression. Skin: Visible areas of skin without rash, lesions, wounds or petechiae. ALLERGIES: ALLERGIES Allergen Reactions Bee Stings [Other] large hives, swelling at site Coreg [Carvedilol] Hives MEDICATIONS: ciprofloxacin HCl (CIPRO) 500 mg tablet Take 500 mg by mouth once daily. FARXIGA 10 mg tablet metoprolol succinate ER (TOPROL XL) 50 mg 24 hr tablet Take 50 mg by mouth once daily. spironolactone (ALDACTONE) 25 mg tablet Take 25 mg by mouth once daily. bumetanide (BUMEX) 2 mg tablet Take 2 mg by mouth once daily. aspirin 81 mg chewable tablet CHEW 1 TABLET BY MOUTH EVERY DAY terazosin (HYTRIN) 5 mg capsule Take 5 mg by mouth daily at bedtime. Omeprazole-Sodium Bicarbonate 40-1,680 mg pack Take by mouth. sucralfate (CARAFATE) 1 gram tablet Take 1 g by mouth four times daily. [facility] NASAL OINTMENT Apply to affected area twice daily. atorvastatin (LIPITOR) 20 mg tablet Take 1 tablet by mouth daily at bedtime. colchicine 0.6 mg tablet Take 0.6 mg by mouth as needed. As needed 1-2 times/week ONETOUCH DELICA PLUS LANCET 33 gauge glipiZIDE (GLUCOTROL) 5 mg tablet Take 5 mg by mouth once daily. ONETOUCH ULTRA BLUE TEST STRIP test strip cholecalciferol (VITAMIN D3) 1,000 unit tab tablet 1,000 Units once daily. lisinopril (ZESTRIL, PRINIVIL) 10 mg tablet Take 1 tablet by mouth once daily. Please resume this medication after PCP follow up LABORATORY VALUES: Hemoglobin (g/dL) Date Value 11/15/2021 6.9 09/17/2021 7.9 Hematocrit (%) Date Value 11/15/2021 22.2 09/17/2021 24.9 WBC (k/uL) Date Value 11/15/2021 2.22 09/17/2021 2.44 Platelet Count (k/uL) Date Value 11/15/2021 50 09/17/2021 83 DIAGNOSIS: (D46.9) Myelodysplastic syndrome (HCC) (primary encounter diagnosis) Plan: CBC + DIFF, COMP METABOLIC PANEL (N18.4) CRF (chronic renal failure), stage 4 (severe) (HCC) Plan: CBC + DIFF, COMP METABOLIC PANEL (N18.4, D63.1) Anemia of chronic renal failure, stage 4 (severe) (HCC) Plan: CBC + DIFF, COMP METABOLIC PANEL (E83.111) 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 transfusions Plan: CBC + DIFF, COMP METABOLIC PANEL PAST MEDICAL HISTORY Diagnosis Date Anemia Anemia of chronic renal failure, stage 4 (severe) (HCC) 08/23/2020 Atrial fibrillation (HCC) Chronic kidney disease CRF (chronic renal failure), stage 4 (severe) (HCC) 08/23/2020 Diabetes mellitus (HCC) GI bleed Hypertension 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 loss 06/15/2020 Leukopenia Sleep apnea Thrombocytopenia (HCC) PAST SURGICAL HISTORY Procedure Laterality Date COLONOSCOPY Social History Tobacco Use Smoking status: Former Smoker Years: 45.00 Types: Pipe Quit date: 1994 Years since quittin.3 Smokeless tobacco: Never Used Vaping Use Vaping Use: Never used Substance Use Topics Alcohol use: Not Currently Drug use: Not on file I spent a total of 30 minutes on the date of the service which included preparing to see the patient, [id number] patient care, completing clinical documentation, obtaining and/or reviewing separately obtained history, performing a medically appropriate examination, ordering medications, tests, or procedures and care coordination (not separately reported). Asher Hummel MD, CPE Services Provided at: [place], [place] & [place], [place] CC: Dr. Flash Gomez (Cardiology [facility] [place]) Dr. Oumou Cho MD documented in this encounter [facility] 11-29-2021 Miscellaneous Notes Records scanned. Update: Pt discharged home w/ home health on Friday, 11/25. [place]: Please scan pt's hospital records from [facility]. Thanks! Angle Kamara RN Thank you for the update. FYI: Pt's calls to inform us that the pt is currently admitted to ICU @ [facility] after suffering a heart attack on Friday. Pt found to have pneumonia as well. Notes the pt's condition is stable as of now. Spouse will call back to reschedule pt's appointments once a discharge plan is in place. Angle Kamara RN documented in this encounter [facility] 11-28-2021 Miscellaneous Notes DISCHARGE CALL BACK Today's date: November 28, 2021 Notified of Pt discharge by: Pt's spouse Patient discharged on 11/25/21 from [facility] to Home with Homecare Nurse Primary Cancer Diagnosis: MDS Admitting Diagnosis: Myocardial Infarction Discharge Summary/SBAR reviewed: No - requested from HIM. Handoff Discussed with Transitional Callisthenics Instructor: N/A Psychosocial Risk Factors: None If patient discharged to SNF/Rehab Facility, phone call completed to reinforce discharge instructions and follow up: N/A Call Disposition: Admission unrelated to cancer diagnosis/treatment. Spouse reports the pt is slow and fatigued. Sent home w/ home oxygen. Using 3 liters/min. Home health seeing pt for nursing and PT/OT services. Has a f/u w/ Dr Pearl (PCP) next week. Spouse will be calling to schedule f/u w/ pt's fashion model. Discharged home w/ new meds. Spouse will be bringing new meds w/ them to tomorrow's f/u appointment. Angle Kamara RN documented in this encounter [facility] 11-27-2021 Note MR#: [id number] [facility] Pt. Name: Sandip Broussard Admitted: 11/18/2021 Discharged: 11/25/2021 Date of : 1940 Physician: Luis Ruiz MD DISCHARGE SUMMARY HOSPITAL COURSE: An 80-year-old male with past medical history of MDS, currently on chronic immunotherapy per [facility], type 2 diabetes mellitus, hypertension, hyperlipidemia, and TATO. The patient presents from an outside hospital due to persistent shortness of breath and was found to be in decompensated heart failure along with the pneumonia. The patient was put on aggressive diuresis per Cardiology and underwent a right heart cath, which showed elevated left ventricular end-diastolic pressures. The patient did have an elevated troponin all the way up to 2, most likely suggesting combination of type 1 or type 2 NSTEMI. He was temporarily put on heparin for concerns of type 1 NSTEMI and then transferred out of the ICU. The patient was evaluated on the floor by the Medicine team. The patient was continued on aggressive IV diuresis with furosemide. Cardiology was involved where they did a TE showing heart ejection fraction of 20% to 25%. This is a newly reduced ejection fraction, also showed severe mitral regurgitation. The patient was eventually transitioned to oral Bumex and also evaluated for home oxygen for he still was recovering from acute systolic heart failure and had mild pulmonary edema. The patient was also diagnosed with Pseudomonas pneumonia while in the ICU and was first treated with cefepime and then transitioned to oral ciprofloxacin. It was determined that since the patient had MDS and anemia, of chronic disease, and his baseline hemoglobin was around 9 and with previous history of GI bleeding that restarting anticoagulation for his atrial fibrillation would be too high risk. The patient's family understood the possible concerns of stroke if not on anticoagulation and they were agreeable to not being on an anticoagulation at discharge, except for antiplatelet therapy with aspirin. The patient was discharged home with home health care while being on 3 L of nasal cannula continuous. The patient was told to follow with Cardiology within the next weeks regarding his ongoing acute systolic heart failure. The patient was clinically stable prior to discharge. ASSESSMENT AND PLAN: 1. [id number] myocardial infarction, likely type 2, was temporarily put on Heparin for concerns of type 1, the patient had no persistent chest pain during his hospital stay, troponins peaked at 2 and then trended down. 2. Pseudomonas pneumonia, cultures grew sarmiento-susceptible Pseudomonas aeruginosa, we will treat for a 7 days total of antipseudomonal agents, told to continue 2 more days of ciprofloxacin at discharge. 3. Acute hypoxic respiratory failure secondary to pulmonary edema, evaluated by RT for home oxygen 3 L continuous, told to follow with PCP for further weaning off oxygen. 4. Acute systolic heart failure, EF of 20% to 25% on TE. This is significantly reduced compared to previous echos, mitral regurgitation was found and the patient is possibly a candidate for MitraClip later on, the patient needs to follow with Cardiology regarding this. 5. Acute kidney injury on chronic kidney disease, stage 4. Baseline creatinine of 2 to 2.5. The patient after being started on aggressive diuresis trended back down to a creatinine of 2 and was stable at discharge. 6. Yhga-ae-rnqrcxoe mitral regurgitation noted on TE. 7. Coronary artery disease, status post stenting of the LAD and RCA in 1985 and 1997, the patient had no active acute coronary syndrome while in the hospital. 8. Permanent atrial fibrillation, was not restarted on anticoagulation due to plain high bleed risk, the patient and family were agreeable to this. 9. Myelodysplastic syndrome, currently on azacitidine injections monthly per [facility]. The patient's hemoglobin was stable while at discharge. 10. Anemia of chronic disease, the patient's baseline hemoglobin is around 9. Prior to discharge, the patient had a hemoglobin around high 7's and 8's, no overt signs of bleeding, the patient was found to be fully deficient and was started on daily folate supplementation. 11. Type 2 diabetes mellitus, the patient was only on low crust normal insulin while at home, was told to continue his Farxiga, which was started here along with his glipizide. 12. Hypertension on lisinopril at home, was discontinued while here due to concerns of CKD. 13. Hyperlipidemia. The patient was restarted on his home aspirin. 14. Obstructive sleep apnea, on BiPAP of 14 at home. 15. Obese. 16. Hypokalemia, resolving with potassium supplementation. Electronically Signed by: Luis Ruiz MD 11/27/2021 02:09 P ____ Luis Ruiz MD I personally saw this patient on the day of the encoun (more content not included)... [facility] 11-16-2021 Miscellaneous Notes Per donald Asher/Dr. Brynn kumar for patient to wait for transfusion until Friday. Patient has been scheduled for transfusion @ [place] Friday, 11/19 @ 9:00 am. He will need to get TSC tomorrow before noon and go through the ER entrance. Spoke w/ November 16, 2021 12:01 PM and confirmed. Ada Perez Pt's notified and states the pt has c/o increased fatigue. Would like to proceed w/ transfusion @ [facility]. Orders given to MARII Puga. Angle Kamara RN Call placed to pt. No answer. Message left requesting call back. Angle Kamara RN ----- Message from Asher Hummel MD sent at 11/15/2021 4:32 PM EDT ----- Probably could use a transfusion if he feels bad. documented in this encounter [facility] 11-01-2021 History of Present illness Narrative Miriam Elizabeth RN documented in this encounter [facility] 10-29-2021 Miscellaneous Notes FYI: Pt's spouse reports that the pt is scheduled to receive a blood transfusion @ [facility] tomorrow @ 8 AM. Angle Kamara RN documented in this encounter [facility] 10-29-2021 History of Present illness Narrative Lab work at the [facility] today, results scanned in. No ANC available, ok to treat per Dr. Watt. Lexi Velasquez RN documented in this encounter [facility] 10-25-2021 History of Present illness Narrative Images from the original note were not included. NAME: Sandip Broussard CLINIC NO.: [id number] DATE OF SERVICE: October 25, 2021 Some elements in this clinic note that are critical to medical decision making have been carefully reviewed and included from a prior clinic note dated: October 01, 2021. Referring Provider: Dr. Flash Pearl Additional Clinicians involved in Sandip Broussard's care: Dr. José Luis Velasquez, Dr. Oumou Wade CC: Follow up ASSESSMENT: 1. Myelodysplastic syndrome 2. Anemia of chronic renal failure, stage 4 3. 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 loss 4. Hypotension 80 year old man with MDS, stage 4 chronic kidney disease and iron deficiency anemia d/t GI blood loss (seen on capsule endoscopy) and epistaxis. Was receiving high dose EPO every 2 weeks with periodic iron infusions. With persisting cytopenia we started him on Vidaza low dose to see if we can positively impact his pancytopenia and reduce his fatigue as well as his Epo usage. Hypotensive today - and anemic - will stop some of his meds and discuss with Dr. Pearl. Recurring Epistaxis- resolved after patient stopped anticoagulants. PLAN: - Procedures/Imagin. Start C5 Vidaza D1-5- 10/29/2021 through 11/02/2021. 2. Retacrit every 2 weeks for Hgb < 11. 3. Arrange for PRBC transfusion with 1 unit. - Labs/Path: 1. Weekly labs. - Return/Referrals: 1. RTC in 4 weeks for C6. - Meds/Rx 1. Continue holding Aldactone, Terazosin and Norvasc TREATMENT TO DATE: 3. 07/09/2021 - Current: Vidaza D1-5 q 28. 2. Retacrit 80,000 units every other week 1. Intermittent IV Iron HPI: Updated Visit, October 25, 2021: Sandip Broussard returns for scheduled follow up. He states that he is feeling slow . He has shortness of breath all the time. He denies any dizziness. He denies any abnormal blood loss. Updated Visit, October 01, 2021: Lloyd is 80 years old and returns with his Lissette for treatment with low-dose Vidaza. He appears to be having some response with improving platelet counts. His only complaints are that of increased abdominal gas. He is otherwise doing well. Continue Retacrit and treatment as recommended. He is safe to proceed. Sees ENT next week No more nose bleeds after stopping Eliquis. Updated Visit, September 17, 2021: Sandip Broussard returns for scheduled follow-up. Since his last visit there has been no significant medical changes. He denies bleeding and abnormal bruising. He denies fevers, chills, night sweats and signs/symptoms of infection. Overall, he feels fairly well. Updated Visit, September 03, 2021: BP improved. Labs stable and platelets have recovered. Was transfused last week and feels better. Neutropenia is disease related and we will continue with treatment. Continue retacrit as Ordered. Transfuse periodically. Updated Visit, August 24, 2021: Lloyd returns today prior to Retacrit during his 2 weeks following Vidaza. Has been having some pain at the base of his skull and is having some dizziness. BP is low - stop Norvasc and Hytrin, and hold Aldactone for now. It is their anniversary today - 49th! Updated Visit, August 06, 2021: Lloyd returns today for follow up and cycle 2 of vidaza. Feeling well. Ran out of his diuretic for a week and had some JANG. Was able to get his medications refilled and is feeling better now. No swelling, chest pain, dizziness, fever, chills or other concerning symptoms. Updated Visit, July 19, 2021: Sandip Broussard returns for follow-up. He received his first cycle of Vidaza 07/09/2021 through 07/13/2021. Overall, he tolerated treatment well without any side effects. He is doing well today and offers no new particular complaints. Updated Visit, July 09, 2021: Hasn't required transfusion since 06/2020. Still profoundly anemic despite adequate dosing of aranesp for CKD. Will proceed with low dose Vidaza. Reviewed plan and goals again. Updated Visit, May 31, 2021: EPO was increased to 80,000 units about 2 weeks ago. Feels the same. reports he still spends most of his day on the couch napping. Patient denies any bleeding. Does have diarrhea, which he has had for over 3 months. 2 loose stools a day. Afraid to go places because of the urgency a/w it. Patient denies bleeding. Does not want to see GI at this time. Has not taken anything for it. No new medications. Updated Visit, May 02, 2021: Lloyd returns with his Lissette and reports that he can't exert himself too much but can get out to the barn and doesn't get dizzy anymore. Still not responding as robustly to increased EPO, so will increase to 80k every 2 weeks. Updated Visit, March 07, 2021: Lloyd returns with his Lissette and was seen by Dr. Wade approximately 1 week ago from ENT. Patient was a little bit confused on instructions given and so I reviewed the recommendations and clarified for Lloyd exactly what his regimen should be. This includes stopping Eliquis as well as aspirin. He appears to be stable from a laboratory perspective but continues to have low platelets and generalized pancytopenia. We discussed again, the goal of his treatment and interventions to be palliative as he requested. He feels well today. Updated Visit, February 21, 2021: Nose bleed Friday- ER plugged it up but then went back on Friday hospitalized until this morning Still seeping blood. Operated on nose- surgery w/ Dr. Marshall Last fall in [place]. Has tranexamic acid at home. Requesting ENT referral at [facility]. He is dehydrated and not keeping up with fluids. Partition Setter is elevated exacerbating cause was likely letting his CPAP reservoir go dry. Ferritin is coming down. Updated Visit, January 10, 2021: Lloyd is here for follow up. After review of his chart, he has stage IV ckd and presented with pancytopenia, including significant anemia requiring transfusion due to GI bleeding and nose bleeds. 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 He has received IV iron in the past along with retacrit, which he is currently receiving every other week. Current goal is quality of life with the least amount visits. He did just have a nose bleed on Friday, and it didn't last long. He made his own plug and kept it in his nose for 24 hours and no additional bleeding. He is taking his eliquis one pill daily, but he held it the last two days due to the nose bleed. He is not on aspirin. Overall he feels well and offers no complaints of significant fatigue, shortness of breath, cough, fever, chills or signs of infections. Updated Visit, November 15, 2020: Sandip Broussard returns for follow-up. He remains on Retacrit 40,000 units every 2 weeks and is tolerating it well. Recently he has noticed pain in the back of his neck. He experienced this same pain when his hemoglobin was low in the past. He states that he takes Tylenol with improvement in the pain. He denies any signs of bleeding. He states that his bruising is better. He is still taking the Eliquis daily at the recommendation of his fashion model. Since stopping the aspirin he has not had any further nosebleeds. He denies fevers, chills, night sweats and signs/symptoms of infection. He has persistent exertional shortness of breath. Updated Visit, September 20, 2020: Lloyd is 79 and returns with his Lissette for discussion on his overall condition as well as his rec to have watchman for A-fib. However, our discussion reveals that he really doesn't want to do anything and that he also doesn't want to take full dose anticoagulation. I pressed him and verified that his goals were to focus on quality of life and get minimally involved in medical procedures. We will continue to monitor his counts and transfuse or give iron and retacrit as necessary, but minimize his follow ups. Updated Visit, August 23, 2020: Lloyd is 79 years old and returns with his Lissette today for multifactorial anemia. His GI bleed was finally found and addressed. They brought in a cake to share in their celebration of their anniversary and Nicki's birthday. He reports that he is no longer lightheaded. Still some fatigue. Now will need Aranesp replacement and iron x 1. He may need low dose dacogen in the future if he is unresponsive. Updated visit, July 26, 2020: Lloyd is 79 years old and returns with his Lissette today having had a capsule endoscopy which was positive for GI bleed. This was stopped and he is now recovering from his blood loss anemia. We will continue supporting him with IV iron as needed but for now we will hold off he will continue need B12 and folic acid. He still has underlying myelodysplasia and stage IV chronic kidney disease which is contributing to his anemia but Corine is not bleeding any longer. Updated Visit, July 03, 2020: Lloyd is 79 years old and returns with his Lissette again requiring additional transfusions because of significantly low hemoglobin. I reviewed his bone marrow biopsy with him which is consistent with myelodysplastic syndrome but he has ongoing melena that is highly suspicious for a GI bleed. To date his endoscopic work-up has been negative but he is due to have a capsule endoscopy that hopefully will reveal the cause of his cytopenias. He feels weak and is in a wheelchair today. Updated Visit, June 15, 2020: Conducted by telephone. Sandip Broussard is a 79 year old male seen for pancytopenia recently having had bone marrow biopsy that is most consistent with. 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 Hopefully his iron deficiency can be corrected and perhaps any evidence of GI bleeding can be attenuated. He sees gastroenterology next week. He may need transfusion support before the weekend even though he was just transfused his 17th unit 2 days ago. I reviewed his bone marrow biopsy results with him and his Lissette in some detail. His erythropoietin level is markedly elevated indicating that supplementation would not help and that his renal failure is not contributing to his anemia. Initial Visit, May 29, 2020: Sandip Broussard presents today Hematology and Oncology evaluation. He is a 79 year old male who is accompanied by his Lissette on urgent referral from Dr. Flash Pearl for pancytopenia, hemoglobin of 5 with both recent EGD and colonoscopy demonstrating no evidence of active bleeding but slight chronic gastritis. He also had several epistaxes as blood to the point of requiring transfusions causing lightheadedness and unsteadiness. Patient states he has had black stools since July 2019. So far extensive work-up has been unrevealing. He has had recent hospitalization and was released on 05/26/2020. Full work-up at that time revealed an adequate erythropoietin response despite elevated creatinine and stage III chronic kidney disease. However his white blood cell count remains suppressed as does his platelet count of less than 100,000. Indeed, his epistaxis may be the cause of his melanotic stools but warrants another look and additionally he will need a bone marrow biopsy. His coags are normal. His red blood cell indices only indicate hypochromasia and macrocytosis. Patient had a bleeding scan that was negative as well. REVIEW OF SYSTEMS Per HPI and otherwise negative by full review of organ systems. ECOG PERFORMANCE STATUS: 1 PHYSICAL EXAMINATION: Vitals: BP 140/48 Pulse 80 Temp (Src) 97.5 (Temporal) Resp 16 Ht 5' 5.039 (1.65m) Wt 239 lb 12.8 oz (108.8kg) SpO2 97% BMI 39.86 kg/(m^2). Body surface area is 2.23 meters squared. Exam limited to gross visualization where appropriate due to COVID-19. Gen.: This is an age-appropriate patient in no acute distress. Head: Appears atraumatic with no visible lesions. Eyes: Pupils equally round and reactive to light, extraocular muscles are intact. Neck: Supple. Mouth: Masked. Respiratory: Appears to be respiring comfortably. Neurologic: Nonfocal to gross visualization. Alert and oriented 3. Psychiatric: No evidence of inappropriate anxiety or depression. Skin: Visible areas of skin without rash, lesions, wounds or petechiae. ALLERGIES: ALLERGIES Allergen Reactions Bee Stings [Other] large hives, swelling at site Coreg [Carvedilol] Hives MEDICATIONS: [facility] NASAL OINTMENT Apply to affected area twice daily. atorvastatin (LIPITOR) 20 mg tablet Take 1 tablet by mouth daily at bedtime. ferrous sulfate (IRON) 325 mg (65 mg iron) tablet Take 325 mg by mouth every 48 hours. colchicine 0.6 mg tablet Take 0.6 mg by mouth as needed. As needed 1-2 times/week lisinopril (ZESTRIL, PRINIVIL) 10 mg tablet Take 1 tablet by mouth once daily. Please resume this medication after PCP follow up ONETOUCH DELICA PLUS LANCET 33 gauge glipiZIDE (GLUCOTROL) 5 mg tablet Take 5 mg by mouth once daily. ONETOUCH ULTRA BLUE TEST STRIP test strip bumetanide (BUMEX) 1 mg tablet bumetanide 1 mg tablet Take 1 tablet twice a day by oral route. cholecalciferol (VITAMIN D3) 1,000 unit tab tablet 1,000 Units once daily. LABORATORY VALUES: Hemoglobin (g/dL) Date Value 10/25/2021 6.9 09/17/2021 7.9 Hematocrit (%) Date Value 10/25/2021 21.7 09/17/2021 24.9 WBC (k/uL) Date Value 10/25/2021 2.19 09/17/2021 2.44 Platelet Count (k/uL) Date Value 10/25/2021 129 09/17/2021 83 DIAGNOSIS: (D46.9) Myelodysplastic syndrome (HCC) (primary encounter diagnosis) (N18.4) CRF (chronic renal failure), stage 4 (severe) (HCC) (D50.0) 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 loss (I95.89, E86.1) Hypotension due to hypovolemia (E83.111) 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 transfusions (C61) Malignant neoplasm of prostate (HCC) (E87.5) Hyperkalemia PAST MEDICAL HISTORY Diagnosis Date Anemia Anemia of chronic renal failure, stage 4 (severe) (HCC) 08/23/2020 Atrial fibrillation (HCC) Chronic kidney disease CRF (chronic renal failure), stage 4 (severe) (HCC) 08/23/2020 Diabetes mellitus (HCC) GI bleed Hypertension 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 loss 06/15/2020 Leukopenia Sleep apnea Thrombocytopenia (HCC) PAST SURGICAL HISTORY Procedure Laterality Date COLONOSCOPY Social History Tobacco Use Smoking status: Former Smoker Years: 45.00 Types: Pipe Quit date: 1994 Years since quittin.2 Smokeless tobacco: Never Used Vaping Use Vaping Use: Never used Substance Use Topics Alcohol use: Not Currently Drug use: Not on file Wilfred Martinez APRN.FUNCTIONAL TESTER TYPEWRITERS Services Provided at: [facility] [place], [place] CC: Dr. Flash Gomez (Cardiology [facility]) Dr. Oumou Wade documented in this encounter [facility] 10-15-2021 History of Present illness Narrative History: Sandip A Berberick, a 80 year old male, presents for f/up ETD. S/p B T-tubes by outside ENT >1 y ago. L tube out. R tube removed 07/17. Doing well. Recently obtained R MCCURDY. . Longstanding L hearing loss. H/o recurrent L nosebleeds, every couple wks, for > 1 y - none since 04/17. Using [facility] ointment. Off eliquis, ASA. Packed in hosp 02/14. S/p caut about 1 y ago. Denies nasal obstruction, nasal congestion, runny-nose, post-nasal drip, facial pressure, headaches, cough, sorethroat. No history of allergies. No history of sinus/nasal surgery. Audio 07/17: L mixed, R SNHL. Sym bone line. SRT R/L 50/90, WRS R/L 68/34 PE: Alert; oriented; well-developed; no apparent distress. Normal voice; normal communication. Eyes: EOMI, pupils symmetric and reactive bilaterally. Nose: patent, normal mucosa, no congestion, no rhinorrhea. Oral cavity, oropharynx: No ulcerative or mass lesions, tongue midline, palate elevates symmetrically, tongue base and floor of mouth soft. Neck: nontender, no lymphadenopathy or masses. Thyroid: no masses. Face: symmetric, sinuses nontender, skin without lesions. Salivary glands: normal size, nontender, no masses. Ears: R: EAC free of lesions. TM clear and mobile. L: EAC free of lesions. TM retracted. Neurologic: director global strategic publisher sales II-XII grossly intact. Assessment/Plan: 1. H/o ETD. S/p T-tubes outside ENT. B out. No recent change. Wearing R MCCURDY. F/up prn. 2. H/o epistaxis. Controlled with [facility] ointment. Refilled. F/up prn. Medical Decision Making: Problems: Low: Acute, uncomplicated illness or injury and Stable chronic illness Risk: Low: Low risk from testing/treatment Moderate: Drug management Medical Decision Making Level: 3 - Low documented in this encounter [facility] Evaluation + Plan note Future Appointments Appointment Date:03/10/2023 02:00:00 PM Scheduled Provider: [facility] Type: Medicare Wellness Subsequent Appointment Date:03/10/2023 02:40:00 PM Scheduled Provider:Álvaro Barton MD [facility] Type: Open Diagnostic Tests PendingUrinalysis 01/10/23 [facility] Evaluation + Plan note Future Appointments Appointment Date:03/10/2023 02:00:00 PM Scheduled Provider: [facility] Type: Medicare Wellness Subsequent Appointment Date:03/10/2023 02:40:00 PM Scheduled Provider:Álvaro Barton MD [facility] Type: Open [facility] Evaluation + Plan note Future Appointments Appointment Date:03/17/2023 02:40:00 PM Scheduled Provider:Álvaro Barton MD [facility] Type: Open Appointment Date:03/18/2023 01:00:00 PM Scheduled Provider:ANTONIA MERCER MD Location:.ONCOLOGY Appointment Type:ONC Supportive Care New (FT) Appointment Date:04/16/2023 02:40:00 PM Scheduled Provider:Álvaro Barton MD [facility] Type: Open Appointment Date:04/22/2023 02:00:00 PM Scheduled Provider: Location:.ONCOLOGY Appointment Type:ONC Office Visit 30 (FT) Appointment Date:04/05/2024 02:00:00 PM Scheduled Provider: Location:[facility] Appointment Type:FM Medicare Wellness Subsequent Diagnostic Tests PendingCBC w/ Auto Diff 03/11/23Comprehensive Metabolic Panel 04/01/23Lactate Dehydrogenase 04/01/23 Future Scheduled TestsStool Occult Blood 03/12/23 [facility] Evaluation note Diagnosis Chronic Eustachian tube dysfunction, bilateral- Primary Epistaxis [facility] Diagnosis CRF (chronic renal failure), stage 4 (severe) (HCC)- Primary Anemia of chronic renal failure, stage 4 (severe) (HCC) 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 loss Iron deficiency anemia secondary to blood loss (chronic) CKD (chronic kidney disease) stage 4, GFR 15-29 ml/min (HCC) Chronic kidney disease, Stage IV (severe) Myelodysplastic syndrome (HCC) Myelodysplastic syndrome, unspecified 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 Diagnosis Myelodysplastic syndrome (HCC)- Primary Myelodysplastic syndrome, unspecified [facility] Diagnosis Myelodysplastic syndrome (HCC)- Primary Myelodysplastic syndrome, unspecified [facility] Diagnosis Myelodysplastic syndrome (HCC)- Primary Myelodysplastic syndrome, unspecified CRF (chronic renal failure), stage 4 (severe) (HCC) [facility] this [facility] Diagnosis Anemia of chronic renal failure, stage 4 (severe) (HCC)- Primary CRF (chronic renal failure), stage 4 (severe) (HCC) 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 loss Iron deficiency anemia secondary to blood loss (chronic) CKD (chronic kidney disease) stage 4, GFR 15-29 ml/min (HCC) Chronic kidney disease, Stage IV (severe) Myelodysplastic syndrome (HCC) Myelodysplastic syndrome, unspecified 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 Diagnosis Acute heart failure, unspecified heart failure type (HCC)- Primary [facility] this [facility]* Diagnosis Myelodysplastic syndrome (HCC)- Primary Myelodysplastic syndrome, unspecified CRF (chronic renal failure), stage 4 (severe) (HCC) Anemia of chronic renal failure, stage 4 (severe) (HCC) 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 loss Iron deficiency anemia secondary to blood loss (chronic) CKD (chronic kidney disease) stage 4, GFR 15-29 ml/min (HCC) Chronic kidney disease, Stage IV (severe) documented in this encounter [facility] note* Diagnosis Myelodysplastic syndrome (HCC)- Primary Myelodysplastic syndrome, unspecified documented in this encounter [facility] note* Diagnosis Myelodysplastic syndrome (HCC)- Primary Myelodysplastic syndrome, unspecified documented in this encounter [facility] note* Diagnosis Myelodysplastic syndrome (HCC)- Primary Myelodysplastic syndrome, unspecified documented in this encounter [facility] note* Diagnosis Myelodysplastic syndrome (HCC)- Primary Myelodysplastic syndrome, unspecified CRF (chronic renal failure), stage 4 (severe) (HCC) Anemia of chronic renal failure, stage 4 (severe) (HCC) 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 documented in this encounter [facility] note* Diagnosis Anemia of chronic renal failure, stage 4 (severe) (HCC)- Primary 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 loss Iron deficiency anemia secondary to blood loss (chronic) Myelodysplastic syndrome (HCC) Myelodysplastic syndrome, unspecified documented in this encounter [facility] note* Diagnosis Myelodysplastic syndrome (HCC)- Primary Myelodysplastic syndrome, unspecified CRF (chronic renal failure), stage 4 (severe) (HCC) Anemia of chronic renal failure, stage 4 (severe) (HCC) 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 loss Iron deficiency anemia secondary to blood loss (chronic) CKD (chronic kidney disease) stage 4, GFR 15-29 ml/min (HCC) Chronic kidney disease, Stage IV (severe) documented in this encounter [facility] note* Diagnosis Myelodysplastic syndrome (HCC)- Primary Myelodysplastic syndrome, unspecified documented in this encounter [facility] note* Diagnosis Myelodysplastic syndrome (HCC)- Primary Myelodysplastic syndrome, unspecified CRF (chronic renal failure), stage 4 (severe) (HCC) 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 [facility] Diagnosis CRF (chronic renal failure), stage 4 (severe) (HCC)- Primary Myelodysplastic syndrome (HCC) Myelodysplastic syndrome, unspecified [facility] Diagnosis Myelodysplastic syndrome (HCC) Myelodysplastic syndrome, unspecified CRF (chronic renal failure), stage 4 (severe) (HCC) Anemia of chronic renal failure, stage 4 (severe) (HCC) 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 [facility] Diagnosis Anemia of chronic renal failure, stage 4 (severe) (HCC)- Primary [facility] Diagnosis Myelodysplastic syndrome (HCC)- Primary Myelodysplastic syndrome, unspecified Anemia of chronic renal failure, stage 4 (severe) (HCC) [facility] Diagnosis Anemia of chronic renal failure, stage 4 (severe) (HCC)- Primary 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 loss Iron deficiency anemia secondary to blood loss (chronic) Myelodysplastic syndrome (HCC) Myelodysplastic syndrome, unspecified CRF (chronic renal failure), stage 4 (severe) (HCC) CKD (chronic kidney disease) stage 4, GFR 15-29 ml/min (HCC) Chronic kidney disease, Stage IV (severe) [facility] this [facility]* Diagnosis CRF (chronic renal failure), stage 4 (severe) (HCC)- Primary [facility] Diagnosis Myelodysplastic syndrome (HCC)- Primary Myelodysplastic syndrome, unspecified CRF (chronic renal failure), stage 4 (severe) (HCC) [facility]* Diagnosis CRF (chronic renal failure), stage 4 (severe) (HCC)- Primary Anemia of chronic renal failure, stage 4 (severe) (HCC) 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 loss Iron deficiency anemia secondary to blood loss (chronic) CKD (chronic kidney disease) stage 4, GFR 15-29 ml/min (HCC) Chronic kidney disease, Stage IV (severe) Myelodysplastic syndrome (HCC) Myelodysplastic syndrome, unspecified documented [facility] this [facility]* Diagnosis Anemia of chronic renal failure, stage 4 (severe) (HCC)- Primary 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 loss Iron deficiency anemia secondary to blood loss (chronic) Myelodysplastic syndrome (HCC) Myelodysplastic syndrome, unspecified CRF (chronic renal failure), stage 4 (severe) (HCC) CKD (chronic kidney disease) stage 4, GFR 15-29 ml/min (HCC) Chronic kidney disease, Stage IV (severe) documented [facility] this [facility]* Diagnosis Myelodysplastic syndrome (HCC)- Primary Myelodysplastic syndrome, unspecified CKD (chronic kidney disease) stage 4, GFR 15-29 ml/min (HCC) Chronic kidney disease, Stage IV (severe) Anemia of chronic renal failure, stage 4 (severe) (HCC) 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 loss Iron deficiency anemia secondary to blood loss (chronic) [facility] Diagnosis Myelodysplastic syndrome (HCC)- Primary Myelodysplastic syndrome, unspecified Anemia of chronic renal failure, stage 4 (severe) (HCC) [facility] this [facility]* Diagnosis Anemia of chronic renal failure, stage 4 (severe) (HCC)- Primary 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 loss Iron deficiency anemia secondary to blood loss (chronic) Myelodysplastic syndrome (HCC) Myelodysplastic syndrome, unspecified CRF (chronic renal failure), stage 4 (severe) (HCC) CKD (chronic kidney disease) stage 4, GFR 15-29 ml/min (HCC) Chronic kidney disease, Stage IV (severe) documented [facility] this [facility]* Diagnosis Myelodysplastic syndrome (HCC)- Primary Myelodysplastic syndrome, unspecified CKD (chronic kidney disease) stage 4, GFR 15-29 ml/min (HCC) Chronic kidney disease, Stage IV (severe) Anemia of chronic renal failure, stage 4 (severe) (HCC) documented [facility] this [facility]* Diagnosis Malignant neoplasm of prostate (HCC)- Primary Malignant neoplasm of prostate documented [facility] this [facility]* Diagnosis Myelodysplastic syndrome (HCC)- Primary Myelodysplastic syndrome, unspecified documented in this [facility]* Diagnosis MDS (myelodysplastic syndrome) (HCC)- Primary Myelodysplastic syndrome, unspecified documented in this encounter [facility] note* Diagnosis Myelodysplastic syndrome (HCC)- Primary Myelodysplastic syndrome, unspecified CRF (chronic renal failure), stage 4 (severe) (HCC) documented in this encounter [facility] note* Diagnosis Myelodysplastic syndrome (HCC)- Primary Myelodysplastic syndrome, unspecified CRF (chronic renal failure), stage 4 (severe) (HCC) Anemia of chronic renal failure, stage 4 (severe) (HCC) documented in this encounter [facility] note* Diagnosis CRF (chronic renal failure), stage 4 (severe) (HCC)- Primary Anemia of chronic renal failure, stage 4 (severe) (HCC) 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 loss Iron deficiency anemia secondary to blood loss (chronic) CKD (chronic kidney disease) stage 4, GFR 15-29 ml/min (HCC) Chronic kidney disease, Stage IV (severe) Myelodysplastic syndrome (HCC) Myelodysplastic syndrome, unspecified documented in this encounter [facility] note* Diagnosis Anemia of chronic renal failure, stage 4 (severe) (HCC)- Primary 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 loss Iron deficiency anemia secondary to blood loss (chronic) Myelodysplastic syndrome (HCC) Myelodysplastic syndrome, unspecified CRF (chronic renal failure), stage 4 (severe) (HCC) CKD (chronic kidney disease) stage 4, GFR 15-29 ml/min (HCC) Chronic kidney disease, Stage IV (severe) documented in this encounter [facility] note* Diagnosis MDS (myelodysplastic syndrome) (HCC)- Primary Myelodysplastic syndrome, unspecified Anemia of chronic renal failure, stage 4 (severe) (HCC) 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 CRF (chronic renal failure), stage 4 (severe) (HCC) documented in this encounter [facility] note* Diagnosis CRF (chronic renal failure), stage 4 (severe) (HCC)- Primary Anemia of chronic renal failure, stage 4 (severe) (HCC) 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 loss Iron deficiency anemia secondary to blood loss (chronic) CKD (chronic kidney disease) stage 4, GFR 15-29 ml/min (HCC) Chronic kidney disease, Stage IV (severe) Myelodysplastic syndrome (HCC) Myelodysplastic syndrome, unspecified documented in this encounter [facility] note* Diagnosis Myelodysplastic syndrome (HCC)- Primary Myelodysplastic syndrome, unspecified CRF (chronic renal failure), stage 4 (severe) (HCC) Anemia of chronic renal failure, stage 4 (severe) (HCC) 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 loss Iron deficiency anemia secondary to blood loss (chronic) CKD (chronic kidney disease) stage 4, GFR 15-29 ml/min (HCC) Chronic kidney disease, Stage IV (severe) Need for influenza vaccination Need for prophylactic vaccination and inoculation against influenza documented in this encounter [facility] note* Diagnosis Myelodysplastic syndrome (HCC)- Primary Myelodysplastic syndrome, unspecified MDS (myelodysplastic syndrome) (HCC) Myelodysplastic syndrome, unspecified 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 CRF (chronic renal failure), stage 4 (severe) (HCC) documented in this encounter [facility] note* Diagnosis Myelodysplastic syndrome (HCC)- Primary Myelodysplastic syndrome, unspecified CRF (chronic renal failure), stage 4 (severe) (HCC) Anemia of chronic renal failure, stage 4 (severe) (HCC) 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 loss Iron deficiency anemia secondary to blood loss (chronic) CKD (chronic kidney disease) stage 4, GFR 15-29 ml/min (HCC) Chronic kidney disease, Stage IV (severe) documented in this encounter [facility] note* Diagnosis Myelodysplastic syndrome (HCC)- Primary Myelodysplastic syndrome, unspecified documented in this encounter [facility] note* Diagnosis MDS (myelodysplastic syndrome) (HCC)- Primary Myelodysplastic syndrome, unspecified Dependent for standing 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 CRF (chronic renal failure), stage 4 (severe) (HCC) 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 CRF (chronic renal failure), stage 4 (severe) (HCC) CKD (chronic kidney disease) stage 4, GFR 15-29 ml/min (HCC) Chronic kidney disease, Stage IV (severe) documented in this encounter [facility] note* Diagnosis Myelodysplastic syndrome (HCC)- Primary Myelodysplastic syndrome, unspecified CRF (chronic renal failure), stage 4 (severe) (HCC) Anemia of chronic renal failure, stage 4 (severe) (HCC) 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 loss Iron deficiency anemia secondary to blood loss (chronic) CKD (chronic kidney disease) stage 4, GFR 15-29 ml/min (HCC) Chronic kidney disease, Stage IV (severe) documented in this encounter [facility] note* Diagnosis MDS (myelodysplastic syndrome) (HCC)- Primary Myelodysplastic syndrome, unspecified CRF (chronic renal failure), stage 4 (severe) (HCC) Anemia of chronic renal failure, stage 4 (severe) (HCC) documented in this encounter [facility] note* Diagnosis Myelodysplastic syndrome (HCC)- Primary Myelodysplastic syndrome, unspecified documented in this encounter [facility] note* Diagnosis MDS (myelodysplastic syndrome) (HCC)- Primary Myelodysplastic syndrome, unspecified CRF (chronic renal failure), stage 4 (severe) (HCC) Anemia of chronic renal failure, stage 4 (severe) (HCC) 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* Diagnosis Myelodysplastic syndrome (HCC)- Primary Myelodysplastic syndrome, unspecified documented in this [facility]* Diagnosis MDS (myelodysplastic syndrome) (HCC)- Primary Myelodysplastic syndrome, unspecified CRF (chronic renal failure), stage 4 (severe) (HCC) [facility] Diagnosis Myelodysplastic syndrome (HCC)- Primary Myelodysplastic syndrome, unspecified CRF (chronic renal failure), stage 4 (severe) (HCC) Anemia of chronic renal failure, stage 4 (severe) (HCC) 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 loss Iron deficiency anemia secondary to blood loss (chronic) CKD (chronic kidney disease) stage 4, GFR 15-29 ml/min (HCC) Chronic kidney disease, Stage IV (severe) documented in this [facility]* Diagnosis Myelodysplastic syndrome (HCC)- Primary Myelodysplastic syndrome, unspecified [facility] Diagnosis Myelodysplastic syndrome (HCC)- Primary Myelodysplastic syndrome, unspecified CRF (chronic renal failure), stage 4 (severe) (HCC) Anemia of chronic renal failure, stage 4 (severe) (HCC) 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 loss Iron deficiency anemia secondary to blood loss (chronic) CKD (chronic kidney disease) stage 4, GFR 15-29 ml/min (HCC) Chronic kidney disease, Stage IV (severe) documented in this 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* Diagnosis Myelodysplastic syndrome (HCC)- Primary Myelodysplastic syndrome, unspecified documented in this 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 Anemia of chronic renal failure, stage 4 (severe) (HCC) Myelodysplastic syndrome (HCC) Myelodysplastic syndrome, unspecified [facility] Diagnosis MDS (myelodysplastic syndrome) (HCC)- Primary Myelodysplastic syndrome, unspecified Anemia of chronic renal failure, stage 4 (severe) (HCC) CRF (chronic renal failure), stage 4 (severe) (HCC) [facility]* Diagnosis Anemia of chronic renal failure, stage 4 (severe) (HCC)- Primary 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 loss Iron deficiency anemia secondary to blood loss (chronic) Myelodysplastic syndrome (HCC) Myelodysplastic syndrome, unspecified [facility]* Diagnosis Myelodysplastic syndrome (HCC)- Primary Myelodysplastic syndrome, unspecified CRF (chronic renal failure), stage 4 (severe) (HCC) Anemia of chronic renal failure, stage 4 (severe) (HCC) 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 loss Iron deficiency anemia secondary to blood loss (chronic) CKD (chronic kidney disease) stage 4, GFR 15-29 ml/min (HCC) Chronic kidney disease, Stage IV (severe) documented in this encounter [facility] note* Diagnosis MDS (myelodysplastic syndrome) (HCC)- Primary Myelodysplastic syndrome, unspecified Anemia of chronic renal failure, stage 4 (severe) (HCC) CRF (chronic renal failure), stage 4 (severe) (HCC) 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 Myelodysplastic syndrome (HCC) Myelodysplastic syndrome, unspecified [facility] Diagnosis 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 loss- Primary Iron deficiency anemia secondary to blood loss (chronic) MDS (myelodysplastic syndrome) (HCC) Myelodysplastic syndrome, unspecified Anemia of chronic renal failure, stage 4 (severe) (HCC) documented in this encounter [facility] note* Diagnosis Myelodysplastic syndrome (HCC)- Primary Myelodysplastic syndrome, unspecified Anemia of chronic renal failure, stage 4 (severe) (HCC) 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 [facility] Diagnosis Myelodysplastic syndrome (HCC)- Primary Myelodysplastic syndrome, unspecified [facility] Diagnosis Myelodysplastic syndrome (HCC)- Primary Myelodysplastic syndrome, unspecified CRF (chronic renal failure), stage 4 (severe) (HCC) Anemia of chronic renal failure, stage 4 (severe) (HCC) 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 loss Iron deficiency anemia secondary to blood loss (chronic) CKD (chronic kidney disease) stage 4, GFR 15-29 ml/min (HCC) Chronic kidney disease, Stage IV (severe) [facility]* Diagnosis MDS (myelodysplastic syndrome) (HCC)- Primary Myelodysplastic syndrome, unspecified Anemia of chronic renal failure, stage 4 (severe) (HCC) 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 loss Iron deficiency anemia secondary to blood loss (chronic) CRF (chronic renal failure), stage 4 (severe) (HCC) 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 CKD (chronic kidney disease) stage 4, GFR 15-29 ml/min (HCC) Chronic kidney disease, Stage IV (severe) Hypotension due to [facility]ovolemia [facility] Myelodysplastic syndrome (HCC)- Primary Myelodysplastic syndrome, unspecified [facility] Diagnosis MDS (myelodysplastic syndrome) (HCC)- Primary Myelodysplastic syndrome, unspecified Anemia of chronic renal failure, stage 4 (severe) (HCC) [facility] Diagnosis MDS (myelodysplastic syndrome) (HCC)- Primary Myelodysplastic syndrome, unspecified 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 loss Iron deficiency anemia secondary to blood loss (chronic) Anemia of chronic renal failure, stage 4 (severe) (HCC) [facility] Diagnosis Anemia of chronic renal failure, stage 4 (severe) (HCC)- Primary 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 loss Iron deficiency anemia secondary to blood loss (chronic) MDS (myelodysplastic syndrome) (HCC) Myelodysplastic syndrome, unspecified [facility] MDS (myelodysplastic syndrome) (HCC)- Primary Myelodysplastic syndrome, unspecified Anemia of chronic renal failure, stage 4 (severe) (HCC) 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 loss Iron deficiency anemia secondary to blood loss (chronic) documented in this encounter [facility] note* Diagnosis MDS (myelodysplastic syndrome) (HCC)- Primary Myelodysplastic syndrome, unspecified Anemia of chronic renal failure, stage 4 (severe) (HCC) documented in this encounter [facility] note* Diagnosis MDS (myelodysplastic syndrome) (HCC)- Primary Myelodysplastic syndrome, unspecified Anemia, unspecified type documented in this encounter [facility] note* Diagnosis MDS (myelodysplastic syndrome) (HCC)- Primary Myelodysplastic syndrome, unspecified documented in this encounter [facility] note* Diagnosis Anemia of chronic renal failure, stage 4 (severe) (HCC)- Primary 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 loss Iron deficiency anemia secondary to blood loss (chronic) MDS (myelodysplastic syndrome) (HCC) Myelodysplastic syndrome, unspecified documented in this encounter [facility] note* Diagnosis MDS (myelodysplastic syndrome) (HCC)- Primary Myelodysplastic syndrome, unspecified Anemia of chronic renal failure, stage 4 (severe) (HCC) Type 2 diabetes mellitus with stage 3 chronic kidney disease, with long-term current use of insulin, unspecified whether stage 3a or 3b CKD ([facility]) documented in this encounter 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 Advance Directive(s) 07/06/2020 6:15 PM Documents on File 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 Advance Directive(s) 07/06/2020 6:15 PM Medications Administered Section Inactive Administered Medications - up to 3 most recent administrations Medication Order MAR Action Action Date Dose Rate Site epoetin larisa-epbx 80,000 Units injection (RETACRIT) 80,000 Units, SUBCUTANEOUS, ONCE, 1 dose, On Jeannette 10/25/21 at 1430, Refrigerate - Protect From Light - Do Not Shake Given 10/25/2021 2:30 PM EDT 80,000 Units Arm, Left Inactive Administered Medications - up to 3 most recent administrations Medication Order MAR Action Action Date Dose Rate Site azaCITIDine 172.5 mg in sterile water 6.9 mL (VIDAZA) 172.5 mg (75 mg/m2 2.3 m2 Treatment Plan BSA from Recorded weight), SUBCUTANEOUS, ONCE, 1 dose, On Fri09/05/21 at 1530, EXP:__1615__(1 HR) Hazardous Chemotherapy Drug: Use appropriate PPE. Given 09/05/2021 3:25 PM EST 172.5 mg Arm, Right dexAMETHasone 10 mg tab(s) (DECADRON) 10 mg, ORAL, ONCE, 1 dose, On Fri09/05/21 at 1530 Given 09/05/2021 3:07 PM EST 10 mg Inactive Administered Medications - up to 3 most recent administrations Medication Order MAR Action Action Date Dose Rate Site azaCITIDine 172.5 mg in sterile water 6.9 mL (VIDAZA) 172.5 mg (75 mg/m2 2.3 m2 Treatment Plan BSA from Recorded weight), SUBCUTANEOUS, ONCE, 1 dose, On Fri10/29/21 at 1530, EXP:1615(1 HR) Pt. Preference 2 syringes Hazardous Chemotherapy Drug: Use appropriate PPE. Given 10/29/2021 3:30 PM EDT 172.5 mg Arm, Right dexAMETHasone 10 mg tab(s) (DECADRON) 10 mg, ORAL, ONCE, 1 dose, On Fri10/29/21 at 1530 Given 10/29/2021 3:09 PM EDT 10 mg Inactive Administered Medications - up to 3 most recent administrations Medication Order MAR Action Action Date Dose Rate Site azaCITIDine 172.5 mg in sterile water 6.9 mL (VIDAZA) 172.5 mg (75 mg/m2 2.3 m2 Treatment Plan BSA from Recorded weight), SUBCUTANEOUS, ONCE, 1 dose, On Fri10/30/21 at 1400, EXP:1500(1 HR) Pt. Preference 2 syringes Hazardous Chemotherapy Drug: Use appropriate PPE. Given 10/30/2021 2:18 PM EDT 172.5 mg Arm, Left dexAMETHasone 10 mg tab(s) (DECADRON) 10 mg, ORAL, ONCE, 1 dose, On Fri10/30/21 at 1400 Given 10/30/2021 2:07 PM EDT 10 mg Inactive Administered Medications - up to 3 most recent administrations Medication Order MAR Action Action Date Dose Rate Site azaCITIDine 172.5 mg in sterile water 6.9 mL (VIDAZA) 172.5 mg (75 mg/m2 2.3 m2 Treatment Plan BSA from Recorded weight), SUBCUTANEOUS, ONCE, 1 dose, On Fri11/01/21 at 1430, EXP: (1 HR) 11/01/21 Hazardous Chemotherapy Drug: Use appropriate PPE. Given 11/01/2021 2:37 PM EDT 172.5 mg Abdomen, LLQ dexAMETHasone 10 mg tab(s) (DECADRON) 10 mg, ORAL, ONCE, 1 dose, On Fri11/01/21 at 1430 Given 11/01/2021 2:24 PM EDT 10 mg Inactive Administered Medications - up to 3 most recent administrations Medication Order MAR Action Action Date Dose Rate Site epoetin larisa-epbx 80,000 Units injection (RETACRIT) 80,000 Units, SUBCUTANEOUS, ONCE, 1 dose, On Fri11/08/21 at 1600, Refrigerate - Protect From Light - Do Not Shake Given 11/08/2021 4:00 PM EDT 80,000 Units Arm, Left Inactive Administered Medications - up to 3 most recent administrations Medication Order MAR Action Action Date Dose Rate Site azaCITIDine 172.5 mg in sterile water 6.9 mL (VIDAZA) 172.5 mg (75 mg/m2 2.3 m2 Treatment Plan BSA from Recorded weight), SUBCUTANEOUS, ONCE, 1 dose, On Fri12/17/21 at 1400, EXP: 12/17/21 @ 3:15PM Hazardous Chemotherapy Drug: Use appropriate PPE. Given 12/17/2021 2:58 PM EDT 172.5 mg Arm, Left dexAMETHasone 10 mg tab(s) (DECADRON) 10 mg, ORAL, ONCE, 1 dose, On Fri12/17/21 at 1400 Given 12/17/2021 2:12 PM EDT 10 mg epoetin larisa-epbx 80,000 Units injection (RETACRIT) 80,000 Units, SUBCUTANEOUS, ONCE, 1 dose, On 12/17/21 at 1430, Refrigerate - Protect From Light - Do Not Shake Given 12/17/2021 3:02 PM EDT 80,000 Units Arm, Right Inactive Administered Medications - up to 3 most recent administrations Medication Order MAR Action Action Date Dose Rate Site azaCITIDine 172.5 mg in sterile water 6.9 mL (VIDAZA) 172.5 mg (75 mg/m2 2.3 m2 Treatment Plan BSA from Recorded weight), SUBCUTANEOUS, ONCE, 1 dose, On Fri12/19/21 at 1330, EXP:1440 12/19/21(1 HR) Hazardous Chemotherapy Drug: Use appropriate PPE. Given 12/19/2021 1:55 PM EDT 172.5 mg Abdomen, RUQ dexAMETHasone 10 mg tab(s) (DECADRON) 10 mg, ORAL, ONCE, 1 dose, On Fri12/19/21 at 1330 Given 12/19/2021 1:36 PM EDT 10 mg Inactive Administered Medications - up to 3 most recent administrations Medication Order MAR Action Action Date Dose Rate Site azaCITIDine 172.5 mg in sterile water 6.9 mL (VIDAZA) 172.5 mg (75 mg/m2 2.3 m2 Treatment Plan BSA from Recorded weight), SUBCUTANEOUS, ONCE, 1 dose, On Fri12/20/21 at 1400, EXP:1445(1 HR) Hazardous Chemotherapy Drug: Use appropriate PPE. Given 12/20/2021 2:05 PM EDT 172.5 mg Arm, Right dexAMETHasone 10 mg tab(s) (DECADRON) 10 mg, ORAL, ONCE, 1 dose, On Fri12/20/21 at 1400 Given 12/20/2021 1:48 PM EDT 10 mg Inactive Administered Medications - up to 3 most recent administrations Medication Order MAR Action Action Date Dose Rate Site azaCITIDine 172.5 mg in sterile water 6.9 mL (VIDAZA) 172.5 mg (75 mg/m2 2.3 m2 Treatment Plan BSA from Recorded weight), SUBCUTANEOUS, ONCE, 1 dose, On Fri12/21/21 at 1400, EXP:1445(1 HR) Hazardous Chemotherapy Drug: Use appropriate PPE. Given 12/21/2021 2:09 PM EDT 172.5 mg A rm, Left dexAMETHasone 10 mg tab(s) (DECADRON) 10 mg, ORAL, ONCE, 1 dose, On Fri12/21/21 at 1400 Given 12/21/2021 1:58 PM EDT 10 mg Inactive Administered Medications - up to 3 most recent administrations Medication Order MAR Action Action Date Dose Rate Site cyanocobalamin 1,000 mcg injection 1,000 mcg, INTRAMUSCULAR, ONCE, 1 dose, On Fri01/07/22 at 1400 Given 01/07/2022 2:07 PM EDT 1,000 mcg Deltoid, Left Inactive Administered Medications - up to 3 most recent administrations Medication Order MAR Action Action Date Dose Rate Site azaCITIDine 161.25 mg in sterile water 6.45 mL (VIDAZA) 161.25 mg (75 mg/m2 2.15 m2 Treatment Plan BSA from Recorded weight), SUBCUTANEOUS, ONCE, 1 dose, On Fri01/14/22 at 1500, EXP: 1530 01/14/22 (1 HR) Hazardous Chemotherapy Drug: Use appropriate PPE. Given 01/14/2022 2:57 PM EDT 161.25 mg Arm, Right dexAMETHasone 10 mg tab(s) (DECADRON) 10 mg, ORAL, ONCE, 1 dose, On Fri01/14/22 at 1500 Given 01/14/2022 2:47 PM EDT 10 mg epoetin larisa-epbx 80,000 Units injection (RETACRIT) 80,000 Units, SUBCUTANEOUS, ONCE, 1 dose, On Fri01/14/22 at 1530, Refrigerate - Protect From Light - Do Not Shake Given 01/14/2022 3:18 PM EDT 80,000 Units Arm, Left Inactive Administered Medications - up to 3 most recent administrations Medication Order MAR Action Action Date Dose Rate Site azaCITIDine 161.25 mg in sterile water 6.45 mL (VIDAZA) 161.25 mg (75 mg/m2 2.15 m2 Treatment Plan BSA from Recorded weight), SUBCUTANEOUS, ONCE, 1 dose, On Fri01/15/22 at 1400, EXP:1500(1 HR) Hazardous Chemotherapy Drug: Use appropriate PPE. Given 01/15/2022 2:17 PM EDT 161.25 mg Abdomen, LLQ dexAMETHasone 10 mg tab(s) (DECADRON) 10 mg, ORAL, ONCE, 1 dose, On Fri01/15/22 at 1400 Given 01/15/2022 2:12 PM EDT 10 mg Inactive Administered Medications - up to 3 most recent administrations Medication Order MAR Action Action Date Dose Rate Site azaCITIDine 161.25 mg in sterile water 6.45 mL (VIDAZA) 161.25 mg (75 mg/m2 2.15 m2 Treatment Plan BSA from Recorded weight), SUBCUTANEOUS, ONCE, 1 dose, On Fri01/16/22 at 1330, EXP 1415(1 HR) Hazardous Chemotherapy Drug: Use appropriate PPE. Given 01/16/2022 1:39 PM EDT 161.25 mg Abdomen, RUQ dexAMETHasone 10 mg tab(s) (DECADRON) 10 mg, ORAL, ONCE, 1 dose, On Fri01/16/22 at 1330 Given 01/16/2022 1:07 PM EDT 10 mg Inactive Administered Medications - up to 3 most recent administrations Medication Order MAR Action Action Date Dose Rate Site azaCITIDine 161.25 mg in sterile water 6.45 mL (VIDAZA) 161.25 mg (75 mg/m2 2.15 m2 Treatment Plan BSA from Recorded weight), SUBCUTANEOUS, ONCE, 1 dose, On Fri01/17/22 at 1400, EXP: 01/17/22 @ 3PM Hazardous Chemotherapy Drug: Use appropriate PPE. Given 01/17/2022 2:26 PM EDT 161.25 mg Arm, Left dexAMETHasone 10 mg tab(s) (DECADRON) 10 mg, ORAL, ONCE, 1 dose, On Fri01/17/22 at 1400 Given 01/17/2022 2:07 PM EDT 10 mg Inactive Administered Medications - up to 3 most recent administrations Medication Order MAR Action Action Date Dose Rate Site azaCITIDine 161.25 mg in sterile water 6.45 mL (VIDAZA) 161.25 mg (75 mg/m2 2.15 m2 Treatment Plan BSA from Recorded weight), SUBCUTANEOUS, ONCE, 1 dose, On Fri01/18/22 at 1400, EXP:_1445(1 HR) Hazardous Chemotherapy Drug: Use appropriate PPE. Given 01/18/2022 2:12 PM EDT 161.25 mg Arm, Right dexAMETHasone 10 mg tab(s) (DECADRON) 10 mg, ORAL, ONCE, 1 dose, On Fri01/18/22 at 1400 Given 01/18/2022 1:51 PM EDT 10 mg NaCl 0.9% 1,000 mL INTRAVENOUS, at 999 mL/hr, Administer over 1 Hours, ONCE, 1 dose, On Fri01/18/22 at 1430 New Bag/Syringe/Efrain le 01/18/2022 2:28 PM EDT 999 mL/hr Inactive Administered Medications - up to 3 most recent administrations Medication Order MAR Action Action Date Dose Rate Site NaCl 0.9% 500 mL iv bolus 500 mL, INTRAVENOUS, at 999 mL/hr, Administer over 0.5 Hours, ONCE, 1 dose, On Fri01/21/22 at 1600 New Bag/Syringe/Bottle 01/21/2022 1:47 PM EDT 500 mL 999 mL/hr Inactive Administered Medications - up to 3 most recent administrations Medication Order MAR Action Action Date Dose Rate Site epoetin larisa-epbx 80,000 Units injection (RETACRIT) 80,000 Units, SUBCUTANEOUS, ONCE, 1 dose, On Fri01/30/22 at 1400, Refrigerate - Protect From Light - Do Not Shake Given 01/30/2022 1:56 PM EDT 80,000 Units Arm, Right Inactive Administered Medications - up to 3 most recent administrations Medication Order MAR Action Action Date Dose Rate Site azaCITIDine 161.25 mg in sterile water 6.45 mL (VIDAZA) 161.25 mg (75 mg/m2 2.15 m2 Treatment Plan BSA from Recorded weight), SUBCUTANEOUS, ONCE, 1 dose, On Fri02/11/22 at 1530, EXP: 1630 02/11/22 (1 HR) Hazardous Chemotherapy Drug: Use appropriate PPE. Given 02/11/2022 4:03 PM EDT 161.25 mg Arm, Right cyanocobalamin 1,000 mcg injection 1,000 mcg, INTRAMUSCULAR, ONCE, 1 dose, On Fri02/11/22 at 1530 Given 02/11/2022 4:08 PM EDT 1,000 mcg Deltoid, Left dexAMETHasone 10 mg tab(s) (DECADRON) 10 mg, ORAL, ONCE, 1 dose, On Fri02/11/22 at 1530 Given 02/11/2022 3:29 PM EDT 10 mg epoetin larisa-epbx 80,000 Units injection (RETACRIT) 80,000 Units, SUBCUTANEOUS, ONCE, 1 dose, On Fri02/11/22 at 1530, Refrigerate - Protect From Light - Do Not Shake Given 02/11/2022 4:08 PM EDT 80,000 Units Arm, Left Inactive Administered Medications - up to 3 most recent administrations Medication Order MAR Action Action Date Dose Rate Site azaCITIDine 161.25 mg in sterile water 6.45 mL (VIDAZA) 161.25 mg (75 mg/m2 2.15 m2 Treatment Plan BSA from Recorded weight), SUBCUTANEOUS, ONCE, 1 dose, On Fri02/12/22 at 1330, EXP: Immediate Use Hazardous Chemotherapy Drug: Use appropriate PPE. Given 02/12/2022 1:39 PM EDT 161.25 mg Abdomen, LUQ dexAMETHasone 10 mg tab(s) (DECADRON) 10 mg, ORAL, ONCE, 1 dose, On Fri02/12/22 at 1330 Given 02/12/2022 1:26 PM EDT 10 mg Inactive Administered Medications - up to 3 most recent administrations Medication Order MAR Action Action Date Dose Rate Site azaCITIDine 161.25 mg in sterile water 6.45 mL (VIDAZA) 161.25 mg (75 mg/m2 2.15 m2 Treatment Plan BSA from Recorded weight), SUBCUTANEOUS, ONCE, 1 dose, On Fri02/13/22 at 1330, EXP 1415(1 HR) Hazardous Chemotherapy Drug: Use appropriate PPE. Given 02/13/2022 1:37 PM EDT 161.25 mg Abdomen, RUQ dexAMETHasone 10 mg tab(s) (DECADRON) 10 mg, ORAL, ONCE, 1 dose, On Fri02/13/22 at 1330 Given 02/13/2022 1:21 PM EDT 10 mg Inactive Administered Medications - up to 3 most recent administrations Medication Order MAR Action Action Date Dose Rate Site azaCITIDine 161.25 mg in sterile water 6.45 mL (VIDAZA) 161.25 mg (75 mg/m2 2.15 m2 Treatment Plan BSA from Recorded weight), SUBCUTANEOUS, ONCE, 1 dose, On Fri02/14/22 at 1400, Immediate Use Hazardous Chemotherapy Drug: Use appropriate PPE. Given 02/14/2022 2:13 PM EDT 161.25 mg Arm, Left dexAMETHasone 10 mg tab(s) (DECADRON) 10 mg, ORAL, ONCE, 1 dose, On Fri02/14/22 at 1400 Given 02/14/2022 1:44 PM EDT 10 mg Inactive Administered Medications - up to 3 most recent administrations Medication Order MAR Action Action Date Dose Rate Site azaCITIDine 161.25 mg in sterile water 6.45 mL (VIDAZA) 161.25 mg (75 mg/m2 2.15 m2 Treatment Plan BSA from Recorded weight), SUBCUTANEOUS, ONCE, 1 dose, On Fri02/15/22 at 1330, EXP:1415 (1 HR) Hazardous Chemotherapy Drug: Use appropriate PPE. Given 02/15/2022 1:51 PM EDT 161.25 mg Arm, Left dexAMETHasone 10 mg tab(s) (DECADRON) 10 mg, ORAL, ONCE, 1 dose, On Fri02/15/22 at 1330 Given 02/15/2022 1:27 PM EDT 10 mg Inactive Administered Medications - up to 3 most recent administrations Medication Order MAR Action Action Date Dose Rate Site epoetin larisa-epbx 80,000 Units injection (RETACRIT) 80,000 Units, SUBCUTANEOUS, ONCE, 1 dose, On Fri02/25/22 at 1500, Refrigerate - Protect From Light - Do Not Shake Given 02/25/2022 3:03 PM EDT 80,000 Units Arm, Left Inactive Administered Medications - up to 3 most recent administrations Medication Order MAR Action Action Date Dose Rate Site azaCITIDine 169.5 mg in sterile water 6.78 mL (VIDAZA) 169.5 mg (75 mg/m2 2.26 m2 Treatment Plan BSA from Recorded weight), SUBCUTANEOUS, ONCE, 1 dose, On Fri03/11/22 at 1530, EXP: 03/11/22 1445 Room Temp (1 HR) Hazardous Chemotherapy Drug: Use appropriate PPE. Given 03/11/2022 4:01 PM EDT 169.5 mg Abdomen, RLQ cyanocobalamin 1,000 mcg injection 1,000 mcg, INTRAMUSCULAR, ONCE, 1 dose, On Fri03/11/22 at 1530 Given 03/11/2022 3:58 PM EDT 1,000 mcg Deltoid, Left dexAMETHasone 10 mg tab(s) (DECADRON) 10 mg, ORAL, ONCE, 1 dose, On Fri03/11/22 at 1530 Given 03/11/2022 3:44 PM EDT 10 mg epoetin larisa-epbx 80,000 Units injection (RETACRIT) 80,000 Units, SUBCUTANEOUS, ONCE, 1 dose, On Fri03/11/22 at 1530, Refrigerate - Protect From Light - Do Not Shake Given 03/11/2022 3:58 PM EDT 80,000 Units Arm, Left Inactive Administered Medications - up to 3 most recent administrations Medication Order MAR Action Action Date Dose Rate Site azaCITIDine 169.5 mg in sterile water 6.78 mL (VIDAZA) 169.5 mg (75 mg/m2 2.26 m2 Treatment Plan BSA from Recorded weight), SUBCUTANEOUS, ONCE, 1 dose, On Fri03/13/22 at 1500, EXP 03/13/22 1545 Room Temp Hazardous Chemotherapy Drug: Use appropriate PPE. Given 03/13/2022 3:02 PM EDT 169.5 mg Arm, Right dexAMETHasone 10 mg tab(s) (DECADRON) 10 mg, ORAL, ONCE, 1 dose, On Fri03/13/22 at 1500 Given 03/13/2022 2:44 PM EDT 10 mg Inactive Administered Medications - up to 3 most recent administrations Medication Order MAR Action Action Date Dose Rate Site azaCITIDine 169.5 mg in sterile water 6.78 mL (VIDAZA) 169.5 mg (75 mg/m2 2.26 m2 Treatment Plan BSA from Recorded weight), SUBCUTANEOUS, ONCE, 1 dose, On Fri03/14/22 at 1500, EXP: 03/14/22 1545 Room Temp Hazardous Chemotherapy Drug: Use appropriate PPE. Given 03/14/2022 3:21 PM EDT 169.5 mg Arm, Left dexAMETHasone 10 mg tab(s) (DECADRON) 10 mg, ORAL, ONCE, 1 dose, On Fri03/14/22 at 1500 Given 03/14/2022 2:51 PM EDT 10 mg Inactive Administered Medications - up to 3 most recent administrations Medication Order MAR Action Action Date Dose Rate Site azaCITIDine 169.5 mg in sterile water 6.78 mL (VIDAZA) 169.5 mg (75 mg/m2 2.26 m2 Treatment Plan BSA from Recorded weight), SUBCUTANEOUS, ONCE, 1 dose, On Fri03/15/22 at 1400, EXP: 03/15/22 1445(1 HR) Hazardous Chemotherapy Drug: Use appropriate PPE. Given 03/15/2022 2:17 PM EDT 169.5 mg Abdomen, LUQ dexAMETHasone 10 mg tab(s) (DECADRON) 10 mg, ORAL, ONCE, 1 dose, On Fri03/15/22 at 1400 Given 03/15/2022 1:50 PM EDT 10 mg Inactive Administered Medications - up to 3 most recent administrations Medication Order MAR Action Action Date Dose Rate Site epoetin larisa-epbx 80,000 Units injection (RETACRIT) 80,000 Units, SUBCUTANEOUS, ONCE, 1 dose, On Fri03/25/22 at 1430, Refrigerate - Protect From Light - Do Not Shake Given 03/25/2022 2:27 PM EDT 80,000 Units Arm, Right Inactive Administered Medications - up to 3 most recent administrations Medication Order MAR Action Action Date Dose Rate Site cyanocobalamin 1,000 mcg injection 1,000 mcg, INTRAMUSCULAR, ONCE, 1 dose, On Fri04/08/22 at 1600 Given 04/08/2022 3:57 PM EDT 1,000 mcg Deltoid, Left epoetin larisa-epbx 80,000 Units injection (RETACRIT) 80,000 Units, SUBCUTANEOUS, ONCE, 1 dose, On Fri04/08/22 at 1600, Refrigerate - Protect From Light - Do Not Shake Given 04/08/2022 3:56 PM EDT 80,000 Units Arm, Right Inactive Administered Medications - up to 3 most recent administrations Medication Order MAR Action Action Dose Rate Site cyanocobalamin 1,000 mcg injection 1,000 mcg, INTRAMUSCULAR, ONCE, 1 dose, On Fri05/06/22 at 1700 Given 05/06/2022 4:40 PM EDT 1,000 mcg Deltoid, Left epoetin larisa-epbx 80,000 Units injection (RETACRIT) 80,000 Units, SUBCUTANEOUS, ONCE, 1 dose, On Fri05/06/22 at 1700, Refrigerate - Protect From Light - Do Not Shake Given 05/06/2022 4:45 PM EDT 80,000 Units Arm, Right Inactive Administered Medications - up to 3 most recent administrations Medication Order MAR Action Action Date Dose Rate Site epoetin larisa-epbx 80,000 Units injection (RETACRIT) 80,000 Units, SUBCUTANEOUS, ONCE, 1 dose, On Fri05/13/22 at 1500, Refrigerate - Protect From Light - Do Not Shake Given 05/13/2022 2:54 PM EDT 80,000 Units Arm, Right Inactive Administered Medications - up to 3 most recent administrations Medication Order MAR Action Action Date Dose Rate Site decitabine 22.36 mg subcutaneous injection (DACOGEN) 22.36 mg (0.2 mg/kg/dose 111.8 kg Treatment plan Recorded weight), SUBCUTANEOUS, ONCE, 1 dose, On Fri05/20/22 at 1500, EXP:immediate use Hazardous Chemotherapy Drug: Use appropriate PPE. Refrigerate. Given 05/20/2022 3:40 PM EDT 22.36 mg Arm, Right epoetin larisa-epbx 80,000 Units injection (RETACRIT) 80,000 Units, SUBCUTANEOUS, ONCE, 1 dose, On Fri05/20/22 at 1500, Refrigerate - Protect From Light - Do Not Shake Given 05/20/2022 3:38 PM EDT 80,000 Units Arm, Left Inactive Administered Medications - up to 3 most recent administrations Medication Order MAR Action Action Date Dose Rate Site decitabine 22.36 mg subcutaneous injection (DACOGEN) 22.36 mg (0.2 mg/kg/dose 111.8 kg Treatment plan Recorded weight), SUBCUTANEOUS, ONCE, 1 dose, On Fri05/21/22 at 1030, EXP:immediate use Hazardous Chemotherapy Drug: Use appropriate PPE. Refrigerate. Given 05/21/2022 10:59 AM EDT 22.36 mg Abdomen, LUQ Inactive Administered Medications - up to 3 most recent administrations Medication Order MAR Action Action Date Dose Rate Site decitabine 22.36 mg subcutaneous injection (DACOGEN) 22.36 mg (0.2 mg/kg/dose 111.8 kg Treatment plan Recorded weight), SUBCUTANEOUS, ONCE, 1 dose, On Fri05/27/22 at 1430, EXP: Hazardous Chemotherapy Drug: Use appropriate PPE. Refrigerate. Given 05/27/2022 3:03 PM EDT 22.36 mg Arm, Right epoetin larisa-epbx 80,000 Units injection (RETACRIT) 80,000 Units, SUBCUTANEOUS, ONCE, 1 dose, On Fri05/27/22 at 1430, Refrigerate - Protect From Light - Do Not Shake Given 05/27/2022 3:03 PM EDT 80,000 Units Arm, Right Inactive Administered Medications - up to 3 most recent administrations Medication Order MAR Action Action Date Dose Rate Site decitabine 22.36 mg subcutaneous injection (DACOGEN) 22.36 mg (0.2 mg/kg/dose 111.8 kg Treatment plan Recorded weight), SUBCUTANEOUS, ONCE, 1 dose, On Fri05/28/22 at 1330, EXP: 1345 05/28/22 Hazardous Chemotherapy Drug: Use appropriate PPE. Refrigerate. Given 05/28/2022 1:46 PM EDT 22.36 mg Arm, Left Inactive Administered Medications - up to 3 most recent administrations Medication Order [facility] Dose Rate Site decitabine 22.36 mg subcutaneous injection (DACOGEN) 22.36 mg (0.2 mg/kg/dose 111.8 kg Treatment plan Recorded weight), SUBCUTANEOUS, ONCE, 1 dose, On Fri06/10/22 at 1530, EXP: Hazardous Chemotherapy Drug: Use appropriate PPE. Refrigerate. Given 06/10/2022 3:54 PM EST 22.36 mg Arm, Right epoetin larisa-epbx 80,000 Units injection (RETACRIT) 80,000 Units, SUBCUTANEOUS, ONCE, 1 dose, On Fri06/10/22 at 1530, Refrigerate - Protect From Light - Do Not Shake Given 06/10/2022 3:55 PM EST 80,000 Units Abdomen, RUQ Inactive Administered Medications - up to 3 most recent administrations Medication Order [facility] Dose Rate Site decitabine 21.1 mg subcutaneous injection (DACOGEN) 21.1 mg (0.2 mg/kg/dose 105.5 kg Treatment plan Recorded weight), SUBCUTANEOUS, ONCE, 1 dose, On Fri06/11/22 at 1400, EXP: 1500 06/11/22 Hazardous Chemotherapy Drug: Use appropriate PPE. Refrigerate. Given 06/11/2022 2:24 PM EST 21.1 mg Arm, Right Inactive Administered Medications - up to 3 most recent administrations Medication Order [facility] Dose Rate Site decitabine 21.1 mg subcutaneous injection (DACOGEN) 21.1 mg (0.2 mg/kg/dose 105.5 kg Treatment plan Recorded weight), SUBCUTANEOUS, ONCE, 1 dose, On Fri06/18/22 at 1400, EXP:1430 06/18/22 Hazardous Chemotherapy Drug: Use appropriate PPE. Refrigerate. Given 06/18/2022 1:58 PM EST 21.1 mg Arm, Right Inactive Administered Medications - up to 3 most recent administrations Medication Order MAR Action Action Date Dose Rate Site decitabine 21.1 mg subcutaneous injection (DACOGEN) 21.1 mg (0.2 mg/kg/dose 105.5 kg Treatment plan Recorded weight), SUBCUTANEOUS, ONCE, 1 dose, On Fri06/24/22 at 1400, Immediate Use Hazardous Chemotherapy Drug: Use appropriate PPE. Refrigerate. Given 06/24/2022 2:29 PM EST 21.1 mg Abdomen, RLQ epoetin larisa-epbx 80,000 Units injection (RETACRIT) 80,000 Units, SUBCUTANEOUS, ONCE, 1 dose, On Fri06/24/22 at 1400, Refrigerate - Protect From Light - Do Not Shake Given 06/24/2022 2:30 PM EST 80,000 Units Arm, Right Inactive Administered Medications - up to 3 most recent administrations Medication Order MAR Action Action Date Dose Rate Site decitabine 21.1 mg subcutaneous injection (DACOGEN) 21.1 mg (0.2 mg/kg/dose 105.5 kg Treatment plan Recorded weight), SUBCUTANEOUS, ONCE, 1 dose, On Fri06/25/22 at 1400, EXP: 1400 06/25/22 Hazardous Chemotherapy Drug: Use appropriate PPE. Refrigerate. Given 06/25/2022 2:00 PM EST 21.1 mg Arm, Left Inactive Administered Medications - up to 3 most recent administrations Medication Order MAR Action Action Date Dose Rate Site cyanocobalamin 1,000 mcg injection 1,000 mcg, INTRAMUSCULAR, ONCE, 1 dose, On Fri07/01/22 at 1530 Given 07/01/2022 3:30 PM EST 1,000 mcg Deltoid, Right decitabine 21.1 mg subcutaneous injection (DACOGEN) 21.1 mg (0.2 mg/kg/dose 105.5 kg Treatment plan Recorded weight), SUBCUTANEOUS, ONCE, 1 dose, On Fri07/01/22 at 1500, EXP: 1600 07/01/22 Hazardous Chemotherapy Drug: Use appropriate PPE. Refrigerate. Given 07/01/2022 3:29 PM EST 21.1 mg Arm, Right epoetin larisa-epbx 80,000 Units injection (RETACRIT) 80,000 Units, SUBCUTANEOUS, ONCE, 1 dose, On Fri07/01/22 at 1530, Refrigerate - Protect From Light - Do Not Shake Given 07/01/2022 3:32 PM EST 80,000 Units Abdomen, RLQ Inactive Administered Medications - up to 3 most recent administrations Medication Order [facility] [place] Action Date Dose Rate Site decitabine 21.1 mg subcutaneous injection (DACOGEN) 21.1 mg (0.2 mg/kg/dose 105.5 kg Treatment plan Recorded weight), SUBCUTANEOUS, ONCE, 1 dose, On Fri07/02/22 at 1430, EXP: 1445 07/02/22 Hazardous Chemotherapy Drug: Use appropriate PPE. Refrigerate. Given 07/02/2022 3:04 PM EST 21.1 mg Arm, Left Inactive Administered Medications - up to 3 most recent administrations Medication Order [facility] [place] Action [facility] Dose Rate Site decitabine 21.1 mg subcutaneous injection (DACOGEN) 21.1 mg (0.2 mg/kg/dose 105.5 kg Treatment plan Recorded weight), SUBCUTANEOUS, ONCE, 1 dose, On Fri07/08/22 at 1500, EXP: 1515 07/08/22 Hazardous Chemotherapy Drug: Use appropriate PPE. Refrigerate. Given 07/08/2022 3:19 PM EST 21.1 mg Arm, Right epoetin larisa-epbx 80,000 Units injection (RETACRIT) 80,000 Units, SUBCUTANEOUS, ONCE, 1 dose, On Fri07/08/22 at 1500, Refrigerate - Protect From Light - Do Not Shake Given 07/08/2022 3:21 PM EST 80,000 Units Abdomen, RLQ Inactive Administered Medications - up to 3 most recent administrations Medication Order [facility] [place] Action [facility] Dose Rate Site decitabine 21.1 mg subcutaneous injection (DACOGEN) 21.1 mg (0.2 mg/kg/dose 105.5 kg Treatment plan Recorded weight), SUBCUTANEOUS, ONCE, 1 dose, On Fri07/09/22 at 1430, Immediate Use. Hazardous Chemotherapy Drug: Use appropriate PPE. Refrigerate. Given 07/09/2022 2:32 PM EST 21.1 mg Arm, Left Inactive Administered Medications - up to 3 most recent administrations Medication Order [facility] [place] Action Date Dose Rate Site decitabine 21.1 mg subcutaneous injection (DACOGEN) 21.1 mg (0.2 mg/kg/dose 105.5 kg Treatment plan Recorded weight), SUBCUTANEOUS, ONCE, 1 dose, On Fri07/15/22 at 1530, EXP:_immediate use Hazardous Chemotherapy Drug: Use appropriate PPE. Refrigerate. Given 07/15/2022 3:34 PM EST 21.1 mg Arm, Right epoetin larisa-epbx 80,000 Units injection (RETACRIT) 80,000 Units, SUBCUTANEOUS, ONCE, 1 dose, On Fri07/15/22 at 1530, Refrigerate - Protect From Light - Do Not Shake Given 07/15/2022 3:34 PM EST 80,000 Units Abdomen, RLQ Inactive Administered Medications - up to 3 most recent administrations Medication Order [facility] Action Action Date Dose Rate Site decitabine 21.1 mg subcutaneous injection (DACOGEN) 21.1 mg (0.2 mg/kg/dose 105.5 kg Treatment plan Recorded weight), SUBCUTANEOUS, ONCE, 1 dose, On Fri07/23/22 at 1530, EXP: 1552 07/23/22 Hazardous Chemotherapy Drug: Use appropriate PPE. Refrigerate. Given 07/23/2022 3:44 PM EST 21.1 mg Arm, Right Inactive Administered Medications - up to 3 most recent administrations Medication Order [facility] Action Action Dose Rate Site cyanocobalamin 1,000 mcg injection 1,000 mcg, INTRAMUSCULAR, ONCE, 1 dose, On Fri07/30/22 at 1600 Given 07/30/2022 4:11 PM EST 1,000 mcg Deltoid, Right decitabine 21.1 mg subcutaneous injection (DACOGEN) 21.1 mg (0.2 mg/kg/dose 105.5 kg Treatment plan Recorded weight), SUBCUTANEOUS, ONCE, 1 dose, On Fri07/30/22 at 1600, EXP:immediate use Hazardous Chemotherapy Drug: Use appropriate PPE. Refrigerate. Given 07/30/2022 4:11 PM EST 21.1 mg Arm, Left Inactive Administered Medications - up to 3 most recent administrations Medication Order [facility] Action Action Date Dose Rate Site decitabine 21.1 mg subcutaneous injection (DACOGEN) 21.1 mg (0.2 mg/kg/dose 105.5 kg Treatment plan Recorded weight), SUBCUTANEOUS, ONCE, 1 dose, On Fri08/07/22 at 1630, EXP: 430 08/07/22 Hazardous Chemotherapy Drug: Use appropriate PPE. Refrigerate. Given 08/07/2022 4:19 PM EST 21.1 mg Arm, Left epoetin larisa-epbx 80,000 Units injection (RETACRIT) 80,000 Units, SUBCUTANEOUS, ONCE, 1 dose, On Fri08/07/22 at 1630, Refrigerate - Protect From Light - Do Not Shake Given 08/07/2022 4:17 PM EST 80,000 Units Arm, Right Inactive Administered Medications - up to 3 most recent administrations Medication Order [facility] Action Action Date Dose Rate Site decitabine 21.1 mg subcutaneous injection (DACOGEN) 21.1 mg (0.2 mg/kg/dose 105.5 kg Treatment plan Recorded weight), SUBCUTANEOUS, ONCE, 1 dose, On Fri08/14/22 at 1430, EXP:Immediate use Hazardous Chemotherapy Drug: Use appropriate PPE. Refrigerate. Given 08/14/2022 2:50 PM EST 21.1 mg Arm, Right Inactive Administered Medications - up to 3 most recent administrations Medication Order [facility] Action Action Date Dose Rate Site cyanocobalamin 1,000 mcg injection 1,000 mcg, INTRAMUSCULAR, ONCE, 1 dose, On Fri08/21/22 at 1500 Given 08/21/2022 2:57 PM EST 1,000 mcg Arm, Left decitabine 21.1 mg subcutaneous injection (DACOGEN) 21.1 mg (0.2 mg/kg/dose 105.5 kg Treatment plan Recorded weight), SUBCUTANEOUS, ONCE, 1 dose, On Fri08/21/22 at 1430, Immediate Use Hazardous Chemotherapy Drug: Use appropriate PPE. Refrigerate. Given 08/21/2022 2:57 PM EST 21.1 mg Arm, Right epoetin larisa-epbx 80,000 Units injection (RETACRIT) 80,000 Units, SUBCUTANEOUS, ONCE, 1 dose, On Fri08/21/22 at 1500, Refrigerate - Protect From Light - Do Not Shake Given 08/21/2022 2:57 PM EST 80,000 Units Abdomen, RLQ Inactive Administered Medications - up to 3 most recent administrations Medication Order [facility] Action Action Date Dose Rate Site luspatercept-aamt 100 mg in syringe 2 mL (REBLOZYL) 100 mg (rounded from 103.5 mg = 1 mg/kg/dose 103.5 kg Treatment plan Recorded weight), SUBCUTANEOUS, ONCE, 1 dose, On Fri08/28/22 at 1600, EXP: 2359 Refrigerate - EXP: (24 HR) Inject into the upper arm, thigh, and/or abdomen. Doses requiring larger reconstituted volumes (greater than 1.2 mL) should be divided into separate syringes; inject into separate sites. Given 08/28/2022 4:16 PM EST 100 mg Ar m, Right Inactive Administered Medications - up to 3 most recent administrations Medication Order [facility] Action Action Date Dose Rate Site cyanocobalamin 1,000 mcg injection 1,000 mcg, INTRAMUSCULAR, ONCE, 1 dose, On Fri09/18/22 at 1430 Given 09/18/2022 2:38 PM EST 1,000 mcg Deltoid, Left luspatercept-aamt 100 mg in syringe 2 mL (REBLOZYL) 100 mg (rounded from 103.5 mg = 1 mg/kg/dose 103.5 kg Treatment plan Recorded weight), SUBCUTANEOUS, ONCE, 1 dose, On Fri09/18/22 at 1430, EXP: 09/18/22 2215 RT Refrigerate - EXP: (24 HR) Inject into the upper arm, thigh, and/or abdomen. Doses requiring larger reconstituted volumes (greater than 1.2 mL) should be divided into separate syringes; inject into separate sites. Given 09/18/2022 2:38 PM EST 100 mg Arm, Right Inactive Administered Medications - up to 3 most recent administrations Medication Order [facility] Action Action Dose Rate Site cyanocobalamin 1,000 mcg injection 1,000 mcg, INTRAMUSCULAR, ONCE, 1 dose, On Fri10/09/22 at 1630 Given 10/09/2022 4:31 PM EDT 1,000 mcg Deltoid, Left luspatercept-aamt 137.655 mg in syringe 2.7531 mL (REBLOZYL) 137.655 mg (1.33 mg/kg/dose 103.5 kg Treatment plan Recorded weight), SUBCUTANEOUS, ONCE, 1 dose, On Fri10/09/22 at 1630, EXP 1630 10/10/22 Refrigerate - EXP: (24 HR) Inject into the upper arm, thigh, and/or abdomen. Doses requiring larger reconstituted volumes (greater than 1.2 mL) should be divided into separate syringes; inject into separate sites. Given 10/09/2022 4:37 PM EDT 137.655 mg Arm, Right Inactive Administered Medications - up to 3 most recent administrations Medication Order [facility] Action Action Date Dose Rate Site cyanocobalamin 1,000 mcg injection 1,000 mcg, INTRAMUSCULAR, ONCE, 1 dose, On Fri10/30/22 at 1500 Given 10/30/2022 4:13 PM EDT 1,000 mcg Deltoid, Right luspatercept-aamt 125 mg in syringe 2.5 mL (REBLOZYL) 125 mg (rounded from 135.926 mg = 1.33 mg/kg/dose 102.2 kg Treatment plan Recorded weight), SUBCUTANEOUS, ONCE, 1 dose, On Fri10/30/22 at 1600, EXP: 10/31/22 0000 Refrigerate - EXP: (24 HR) Inject into the upper arm, thigh, and/or abdomen. Doses requiring larger reconstituted volumes (greater than 1.2 mL) should be divided into separate syringes; inject into separate sites. Given 10/30/2022 4:14 PM EDT 125 mg Arm, Right Reason for Referral Specialty Diagnoses / Procedures Referred By Contmichel t Referred To Contact Diagnoses Myelodysplastic syndrome (HCC) Procedures CONSULT TO HEMATOLOGY/ONCOLOGY OFFICE/OUTPATIENT [facility] 60-74 MINUTES Asher Hummel MD [address] [place] [address] [place] [address] Referral ID Status Reason Start Date Expiration Date Visits Requested Visits Authorized [id number] Authorized PCP Requested Referral 03/15/2022 03/15/2023 1 1 Additional Source Comments (unrecognized sect ion and content) No Status Records FoundNo Status Records FoundNo Status Records FoundNo Status Records FoundNo Status Records FoundNo Status Records Found INFORMATION SOURCE (unrecogn ized section and content) DATE CREATED AUTHOR 07/05/2018 [facility] DATE CREATED AUTHOR AUTHOR'S ORGANIZ ATION 12/22/2021 [facility] DATE CREATED AUTHOR AUTHOR'S ORGANIZ ATION 01/03/2023 [facility] DATE CREATED AUTHOR AUTHOR'S ORGANIZ ATION 01/05/2023 [facility] DATE CREATED AUTHOR AUTHOR'S ORGANIZ ATION 05/29/2023 [facility] DATE CREATED AUTHOR AUTHOR'S ORGANIZ ATION 07/16/2023 Kash Dominguez [facility] Source Comments (unrecognize d section and content) In the event this informatio n is protected by the Federal Confidentiality of Alcohol and Drug Abuse Patient Records regulations: The Federal rules restrict any use of the information to criminally investigate or prosecute any alcohol or drug abuse patient.[facility] the event this information is protected by the Federal Confidentiality of Alcohol and Drug Abuse Patient Records regulations: The Federal rules restrict any use of the information to criminally investigate or prosecute any alcohol or drug abuse patient.[facility]In the event this information is protected by the Federal Confidentiality of Alcohol and Drug Abuse Patient Records regulations: The Federal rules restrict any use of the information to criminally investigate or prosecute any alcohol or drug abuse patient.[facility]In the event this information is protected by the Federal Confidentiality of Alcohol and Drug Abuse Patient Records regulations: The Federal rules restrict any use of the information to criminally investigate or prosecute any alcohol or drug abuse patient.[facility]In the event this information is protected by the Federal Confidentiality of Alcohol and Drug Abuse Patient Records regulations: The Federal rules restrict any use of the information to criminally investigate or prosecute any alcohol or drug abuse patient.[facility]In the event this information is protected by the Federal Confidentiality of Alcohol and Drug Abuse Patient Records regulations: The Federal rules restrict any use of the information to criminally investigate or prosecute any alcohol or drug abuse patient.[facility]In the event this information is protected by the Federal Confidentiality of Alcohol and Drug Abuse Patient Records regulations: The Federal rules restrict any use of the information to criminally investigate or prosecute any alcohol or drug abuse patient.[facility]In the event this information is protected by the Federal Confidentiality of Alcohol and Drug Abuse Patient Records regulations: The Federal rules restrict any use of the information to criminally investigate or prosecute any alcohol or drug abuse patient.[facility]In the event this information is protected by the Federal Confidentiality of Alcohol and Drug Abuse Patient Records regulations: The Federal rules restrict any use of the information to criminally investigate or prosecute any alcohol or drug abuse patient.[facility]In the event this information is protected by the Federal Confidentiality of Alcohol and Drug Abuse Patient Records regulations: The Federal rules restrict any use of the information to criminally investigate or prosecute any alcohol or drug abuse patient.[facility]In the event this information is protected by the Federal Confidentiality of Alcohol and Drug Abuse Patient Records regulations: The Federal rules restrict any use of the information to criminally investigate or prosecute any alcohol or drug abuse patient.[facility]In the event this information is protected by the Federal Confidentiality of Alcohol and Drug Abuse Patient Records regulations: The Federal rules restrict any use of the information to criminally investigate or prosecute any alcohol or drug abuse patient.[facility]In the event this information is protected by the Federal Confidentiality of Alcohol and Drug Abuse Patient Records regulations: The Federal rules restrict any use of the information to criminally investigate or prosecute any alcohol or drug abuse patient.[facility]In the event this information is protected by the Federal Confidentiality of Alcohol and Drug Abuse Patient Records regulations: The Federal rules restrict any use of the information to criminally investigate or prosecute any alcohol or drug abuse patient.[facility]In the event this information is protected by the Federal Confidentiality of Alcohol and Drug Abuse Patient Records regulations: The Federal rules restrict any use of the information to criminally investigate or prosecute any alcohol or drug abuse patient.[facility]In the event this information is protected by the Federal Confidentiality of Alcohol and Drug Abuse Patient Records regulations: The Federal rules restrict any use of the information to criminally investigate or prosecute any alcohol or drug abuse patient.[facility]In the event this information is protected by the Federal Confidentiality of Alcohol and Drug Abuse Patient Records regulations: The Federal rules restrict any use of the information to criminally investigate or prosecute any alcohol or drug abuse patient.[facility]In the event this information is protected by the Federal Confidentiality of Alcohol and Drug Abuse Patient Records regulations: The Federal rules restrict any use of the information to criminally investigate or prosecute any alcohol or drug abuse patient.[facility]In the event this information is protected by the Federal Confidentiality of Alcohol and Drug Abuse Patient Records regulations: The Federal rules restrict any use of the information to criminally investigate or prosecute any alcohol or drug abuse patient.[facility] HospitalIn the event this information is protected by the Federal Confidentiality of Alcohol and Drug Abuse Patient Records regulations: The Federal rules restrict any use of the information to criminally investigate or prosecute any alcohol or drug abuse patient.[facility] HospitalIn the event this information is protected by the Federal Confidentiality of Alcohol and Drug Abuse Patient Records regulations: The Federal rules restrict any use of the information to criminally investigate or prosecute any alcohol or drug abuse patient.[facility] HospitalIn the event this information is protected by the Federal Confidentiality of Alcohol and Drug Abuse Patient Records regulations: The Federal rules restrict any use of the information to criminally investigate or prosecute any alcohol or drug abuse patient.[facility] HospitalIn the event this information is protected by the Federal Confidentiality of Alcohol and Drug Abuse Patient Records regulations: The Federal rules restrict any use of the information to criminally investigate or prosecute any alcohol or drug abuse patient.[facility] HospitalIn the event this information is protected by the Federal Confidentiality of Alcohol and Drug Abuse Patient Records regulations: The Federal rules restrict any use of the information to criminally investigate or prosecute any alcohol or drug abuse patient.[facility]In the event this information is protected by the Federal Confidentiality of Alcohol and Drug Abuse Patient Records regulations: The Federal rules restrict any use of the information to criminally investigate or prosecute any alcohol or drug abuse patient.[facility]In the event this information is protected by the Federal Confidentiality of Alcohol and Drug Abuse Patient Records regulations: The Federal rules restrict any use of the information to criminally investigate or prosecute any alcohol or drug abuse patient.[facility] HospitalIn the event this information is protected by the Federal Confidentiality of Alcohol and Drug Abuse Patient Records regulations: The Federal rules restrict any use of the information to criminally investigate or prosecute any alcohol or drug abuse patient.[facility]In the event this information is protected by the Federal Confidentiality of Alcohol and Drug Abuse Patient Records regulations: The Federal rules restrict any use of the information to criminally investigate or prosecute any alcohol or drug abuse patient.[facility] HospitalIn the event this information is protected by the Federal Confidentiality of Alcohol and Drug Abuse Patient Records regulations: The Federal rules restrict any use of the information to criminally investigate or prosecute any alcohol or drug abuse patient.[facility]In the event this information is protected by the Federal Confidentiality of Alcohol and Drug Abuse Patient Records regulations: The Federal rules restrict any use of the information to criminally investigate or prosecute any alcohol or drug abuse patient.[facility]In the event this information is protected by the Federal Confidentiality of Alcohol and Drug Abuse Patient Records regulations: The Federal rules restrict any use of the information to criminally investigate or prosecute any alcohol or drug abuse patient.[facility]In the event this information is protected by the Federal Confidentiality of Alcohol and Drug Abuse Patient Records regulations: The Federal rules restrict any use of the information to criminally investigate or prosecute any alcohol or drug abuse patient.[facility] HospitalIn the event this information is protected by the Federal Confidentiality of Alcohol and Drug Abuse Patient Records regulations: The Federal rules restrict any use of the information to criminally investigate or prosecute any alcohol or drug abuse patient.[facility]In the event this information is protected by the Federal Confidentiality of Alcohol and Drug Abuse Patient Records regulations: The Federal rules restrict any use of the information to criminally investigate or prosecute any alcohol or drug abuse patient.[facility] HospitalIn the event this information is protected by the Federal Confidentiality of Alcohol and Drug Abuse Patient Records regulations: The Federal rules restrict any use of the information to criminally investigate or prosecute any alcohol or drug abuse patient.[facility]In the event this information is protected by the Federal Confidentiality of Alcohol and Drug Abuse Patient Records regulations: The Federal rules restrict any use of the information to criminally investigate or prosecute any alcohol or drug abuse patient.[facility]In the event this information is protected by the Federal Confidentiality of Alcohol and Drug Abuse Patient Records regulations: The Federal rules restrict any use of the information to criminally investigate or prosecute any alcohol or drug abuse patient.[facility]In the event this information is protected by the Federal Confidentiality of Alcohol and Drug Abuse Patient Records regulations: The Federal rules restrict any use of the information to criminally investigate or prosecute any alcohol or drug abuse patient.[facility]In the event this information is protected by the Federal Confidentiality of Alcohol and Drug Abuse Patient Records regulations: The Federal rules restrict any use of the information to criminally investigate or prosecute any alcohol or drug abuse patient.[facility] HospitalIn the event this information is protected by the Federal Confidentiality of Alcohol and Drug Abuse Patient Records regulations: The Federal rules restrict any use of the information to criminally investigate or prosecute any alcohol or drug abuse patient.[facility]In the event this information is protected by the Federal Confidentiality of Alcohol and Drug Abuse Patient Records regulations: The Federal rules restrict any use of the information to criminally investigate or prosecute any alcohol or drug abuse patient.[facility]In the event this information is protected by the Federal Confidentiality of Alcohol and Drug Abuse Patient Records regulations: The Federal rules restrict any use of the information to criminally investigate or prosecute any alcohol or drug abuse patient.[facility]In the event this information is protected by the Federal Confidentiality of Alcohol and Drug Abuse Patient Records regulations: The Federal rules restrict any use of the information to criminally investigate or prosecute any alcohol or drug abuse patient.[facility]In the event this information is protected by the Federal Confidentiality of Alcohol and Drug Abuse Patient Records regulations: The Federal rules restrict any use of the information to criminally investigate or prosecute any alcohol or drug abuse patient.[facility]In the event this information is protected by the Federal Confidentiality of Alcohol and Drug Abuse Patient Records regulations: The Federal rules restrict any use of the information to criminally investigate or prosecute any alcohol or drug abuse patient.[facility]In the event this information is protected by the Federal Confidentiality of Alcohol and Drug Abuse Patient Records regulations: The Federal rules restrict any use of the information to criminally investigate or prosecute any alcohol or drug abuse patient.[facility]In the event this information is protected by the Federal Confidentiality of Alcohol and Drug Abuse Patient Records regulations: The Federal rules restrict any use of the information to criminally investigate or prosecute any alcohol or drug abuse patient.[facility] HospitalIn the event this information is protected by the Federal Confidentiality of Alcohol and Drug Abuse Patient Records regulations: The Federal rules restrict any use of the information to criminally investigate or prosecute any alcohol or drug abuse patient.[facility] HospitalIn the event this information is protected by the Federal Confidentiality of Alcohol and Drug Abuse Patient Records regulations: The Federal rules restrict any use of the information to criminally investigate or prosecute any alcohol or drug abuse patient.[facility]In the event this information is protected by the Federal Confidentiality of Alcohol and Drug Abuse Patient Records regulations: The Federal rules restrict any use of the information to criminally investigate or prosecute any alcohol or drug abuse patient.[facility]In the event this information is protected by the Federal Confidentiality of Alcohol and Drug Abuse Patient Records regulations: The Federal rules restrict any use of the information to criminally investigate or prosecute any alcohol or drug abuse patient.[facility] HospitalIn the event this information is protected by the Federal Confidentiality of Alcohol and Drug Abuse Patient Records regulations: The Federal rules restrict any use of the information to criminally investigate or prosecute any alcohol or drug abuse patient.[facility] HospitalIn the event this information is protected by the Federal Confidentiality of Alcohol and Drug Abuse Patient Records regulations: The Federal rules restrict any use of the information to criminally investigate or prosecute any alcohol or drug abuse patient.[facility] HospitalIn the event this information is protected by the Federal Confidentiality of Alcohol and Drug Abuse Patient Records regulations: The Federal rules restrict any use of the information to criminally investigate or prosecute any alcohol or drug abuse patient.[facility] HospitalIn the event this information is protected by the Federal Confidentiality of Alcohol and Drug Abuse Patient Records regulations: The Federal rules restrict any use of the information to criminally investigate or prosecute any alcohol or drug abuse patient.[facility] HospitalIn the event this information is protected by the Federal Confidentiality of Alcohol and Drug Abuse Patient Records regulations: The Federal rules restrict any use of the information to criminally investigate or prosecute any alcohol or drug abuse patient.[facility]In the event this information is protected by the Federal Confidentiality of Alcohol and Drug Abuse Patient Records regulations: The Federal rules restrict any use of the information to criminally investigate or prosecute any alcohol or drug abuse patient.[facility]In the event this information is protected by the Federal Confidentiality of Alcohol and Drug Abuse Patient Records regulations: The Federal rules restrict any use of the information to criminally investigate or prosecute any alcohol or drug abuse patient.[facility]In the event this information is protected by the Federal Confidentiality of Alcohol and Drug Abuse Patient Records regulations: The Federal rules restrict any use of the information to criminally investigate or prosecute any alcohol or drug abuse patient.[facility]In the event this information is protected by the Federal Confidentiality of Alcohol and Drug Abuse Patient Records regulations: The Federal rules restrict any use of the information to criminally investigate or prosecute any alcohol or drug abuse patient.[facility]In the event this information is protected by the Federal Confidentiality of Alcohol and Drug Abuse Patient Records regulations: The Federal rules restrict any use of the information to criminally investigate or prosecute any alcohol or drug abuse patient.[facility]In the event this information is protected by the Federal Confidentiality of Alcohol and Drug Abuse Patient Records regulations: The Federal rules restrict any use of the information to criminally investigate or prosecute any alcohol or drug abuse patient.[facility]In the event this information is protected by the Federal Confidentiality of Alcohol and Drug Abuse Patient Records regulations: The Federal rules restrict any use of the information to criminally investigate or prosecute any alcohol or drug abuse patient.[facility]In the event this information is protected by the Federal Confidentiality of Alcohol and Drug Abuse Patient Records regulations: The Federal rules restrict any use of the information to criminally investigate or prosecute any alcohol or drug abuse patient.[facility]In the event this information is protected by the Federal Confidentiality of Alcohol and Drug Abuse Patient Records regulations: The Federal rules restrict any use of the information to criminally investigate or prosecute any alcohol or drug abuse patient.[facility]In the event this information is protected by the Federal Confidentiality of Alcohol and Drug Abuse Patient Records regulations: The Federal rules restrict any use of the information to criminally investigate or prosecute any alcohol or drug abuse patient.[facility]In the event this information is protected by the Federal Confidentiality of Alcohol and Drug Abuse Patient Records regulations: The Federal rules restrict any use of the information to criminally investigate or prosecute any alcohol or drug abuse patient.[facility]In the event this information is protected by the Federal Confidentiality of Alcohol and Drug Abuse Patient Records regulations: The Federal rules restrict any use of the information to criminally investigate or prosecute any alcohol or drug abuse patient.[facility]In the event this information is protected by the Federal Confidentiality of Alcohol and Drug Abuse Patient Records regulations: The Federal rules restrict any use of the information to criminally investigate or prosecute any alcohol or drug abuse patient.[facility]In the event this information is protected by the Federal Confidentiality of Alcohol and Drug Abuse Patient Records regulations: The Federal rules restrict any use of the information to criminally investigate or prosecute any alcohol or drug abuse patient.[facility]In the event this information is protected by the Federal Confidentiality of Alcohol and Drug Abuse Patient Records regulations: The Federal rules restrict any use of the information to criminally investigate or prosecute any alcohol or drug abuse patient.[facility]In the event this information is protected by the Federal Confidentiality of Alcohol and Drug Abuse Patient Records regulations: The Federal rules restrict any use of the information to criminally investigate or prosecute any alcohol or drug abuse patient.[facility]In the event this information is protected by the Federal Confidentiality of Alcohol and Drug Abuse Patient Records regulations: The Federal rules restrict any use of the information to criminally investigate or prosecute any alcohol or drug abuse patient.[facility]In the event this information is protected by the Federal Confidentiality of Alcohol and Drug Abuse Patient Records regulations: The Federal rules restrict any use of the information to criminally investigate or prosecute any alcohol or drug abuse patient.[facility]In the event this information is protected by the Federal Confidentiality of Alcohol and Drug Abuse Patient Records regulations: The Federal rules restrict any use of the information to criminally investigate or prosecute any alcohol or drug abuse patient.[facility]In the event this information is protected by the Federal Confidentiality of Alcohol and Drug Abuse Patient Records regulations: The Federal rules restrict any use of the information to criminally investigate or prosecute any alcohol or drug abuse patient.[facility]In the event this information is protected by the Federal Confidentiality of Alcohol and Drug Abuse Patient Records regulations: The Federal rules restrict any use of the information to criminally investigate or prosecute any alcohol or drug abuse patient.[facility]In the event this information is protected by the Federal Confidentiality of Alcohol and Drug Abuse Patient Records regulations: The Federal rules restrict any use of the information to criminally investigate or prosecute any alcohol or drug abuse patient.[facility]In the event this information is protected by the Federal Confidentiality of Alcohol and Drug Abuse Patient Records regulations: The Federal rules restrict any use of the information to criminally investigate or prosecute any alcohol or drug abuse patient.[facility]In the event this information is protected by the Federal Confidentiality of Alcohol and Drug Abuse Patient Records regulations: The Federal rules restrict any use of the information to criminally investigate or prosecute any alcohol or drug abuse patient.[facility]In the event this information is protected by the Federal Confidentiality of Alcohol and Drug Abuse Patient Records regulations: The Federal rules restrict any use of the information to criminally investigate or prosecute any alcohol or drug abuse patient.[facility]In the event this information is protected by the Federal Confidentiality of Alcohol and Drug Abuse Patient Records regulations: The Federal rules restrict any use of the information to criminally investigate or prosecute any alcohol or drug abuse patient.[facility]In the event this information is protected by the Federal Confidentiality of Alcohol and Drug Abuse Patient Records regulations: The Federal rules restrict any use of the information to criminally investigate or prosecute any alcohol or drug abuse patient.[facility]In the event this information is protected by the Federal Confidentiality of Alcohol and Drug Abuse Patient Records regulations: The Federal rules restrict any use of the information to criminally investigate or prosecute any alcohol or drug abuse patient.[facility]In the event this information is protected by the Federal Confidentiality of Alcohol and Drug Abuse Patient Records regulations: The Federal rules restrict any use of the information to criminally investigate or prosecute any alcohol or drug abuse patient.[facility]In the event this information is protected by the Federal Confidentiality of Alcohol and Drug Abuse Patient Records regulations: The Federal rules restrict any use of the information to criminally investigate or prosecute any alcohol or drug abuse patient.[facility]In the event this information is protected by the Federal Confidentiality of Alcohol and Drug Abuse Patient Records regulations: The Federal rules restrict any use of the information to criminally investigate or prosecute any alcohol or drug abuse patient.[facility]In the event this information is protected by the Federal Confidentiality of Alcohol and Drug Abuse Patient Records regulations: The Federal rules restrict any use of the information to criminally investigate or prosecute any alcohol or drug abuse patient.[facility]In the event this information is protected by the Federal Confidentiality of Alcohol and Drug Abuse Patient Records regulations: The Federal rules restrict any use of the information to criminally investigate or prosecute any alcohol or drug abuse patient.[facility]In the event this information is protected by the Federal Confidentiality of Alcohol and Drug Abuse Patient Records regulations: The Federal rules restrict any use of the information to criminally investigate or prosecute any alcohol or drug abuse patient.[facility]In the event this information is protected by the Federal Confidentiality of Alcohol and Drug Abuse Patient Records regulations: The Federal rules restrict any use of the information to criminally investigate or prosecute any alcohol or drug abuse patient.[facility]In the event this information is protected by the Federal Confidentiality of Alcohol and Drug Abuse Patient Records regulations: The Federal rules restrict any use of the information to criminally investigate or prosecute any alcohol or drug abuse patient.[facility]In the event this information is protected by the Federal Confidentiality of Alcohol and Drug Abuse Patient Records regulations: The Federal rules restrict any use of the information to criminally investigate or prosecute any alcohol or drug abuse patient.[facility]In the event this information is protected by the Federal Confidentiality of Alcohol and Drug Abuse Patient Records regulations: The Federal rules restrict any use of the information to criminally investigate or prosecute any alcohol or drug abuse patient.[facility]In the event this information is protected by the Federal Confidentiality of Alcohol and Drug Abuse Patient Records regulations: The Federal rules restrict any use of the information to criminally investigate or prosecute any alcohol or drug abuse patient.[facility]In the event this information is protected by the Federal Confidentiality of Alcohol and Drug Abuse Patient Records regulations: The Federal rules restrict any use of the information to criminally investigate or prosecute any alcohol or drug abuse patient.[facility]In the event this information is protected by the Federal Confidentiality of Alcohol and Drug Abuse Patient Records regulations: The Federal rules restrict any use of the information to criminally investigate or prosecute any alcohol or drug abuse patient.[facility]In the event this information is protected by the Federal Confidentiality of Alcohol and Drug Abuse Patient Records regulations: The Federal rules restrict any use of the information to criminally investigate or prosecute any alcohol or drug abuse patient.[facility]In the event this information is protected by the Federal Confidentiality of Alcohol and Drug Abuse Patient Records regulations: The Federal rules restrict any use of the information to criminally investigate or prosecute any alcohol or drug abuse patient.[facility]In the event this information is protected by the Federal Confidentiality of Alcohol and Drug Abuse Patient Records regulations: The Federal rules restrict any use of the information to criminally investigate or prosecute any alcohol or drug abuse patient.[facility]In the event this information is protected by the Federal Confidentiality of Alcohol and Drug Abuse Patient Records regulations: The Federal rules restrict any use of the information to criminally investigate or prosecute any alcohol or drug abuse patient.[facility]In the event this information is protected by the Federal Confidentiality of Alcohol and Drug Abuse Patient Records regulations: The Federal rules restrict any use of the information to criminally investigate or prosecute any alcohol or drug abuse patient.[facility]In the event this information is protected by the Federal Confidentiality of Alcohol and Drug Abuse Patient Records regulations: The Federal rules restrict any use of the information to criminally investigate or prosecute any alcohol or drug abuse patient.[facility]In the event this information is protected by the Federal Confidentiality of Alcohol and Drug Abuse Patient Records regulations: The Federal rules restrict any use of the information to criminally investigate or prosecute any alcohol or drug abuse patient.[facility]In the event this information is protected by the Federal Confidentiality of Alcohol and Drug Abuse Patient Records regulations: The Federal rules restrict any use of the information to criminally investigate or prosecute any alcohol or drug abuse patient.[facility]In the event this information is protected by the Federal Confidentiality of Alcohol and Drug Abuse Patient Records regulations: The Federal rules restrict any use of the information to criminally investigate or prosecute any alcohol or drug abuse patient.[facility]In the event this information is protected by the Federal Confidentiality of Alcohol and Drug Abuse Patient Records regulations: The Federal rules restrict any use of the information to criminally investigate or prosecute any alcohol or drug abuse patient.[facility]In the event this information is protected by the Federal Confidentiality of Alcohol and Drug Abuse Patient Records regulations: The Federal rules restrict any use of the information to criminally investigate or prosecute any alcohol or drug abuse patient.[facility]In the event this information is protected by the Federal Confidentiality of Alcohol and Drug Abuse Patient Records regulations: The Federal rules restrict any use of the information to criminally investigate or prosecute any alcohol or drug abuse patient.[facility]In the event this information is protected by the Federal Confidentiality of Alcohol and Drug Abuse Patient Records regulations: The Federal rules restrict any use of the information to criminally investigate or prosecute any alcohol or drug abuse patient.[facility]In the event this information is protected by the Federal Confidentiality of Alcohol and Drug Abuse Patient Records regulations: The Federal rules restrict any use of the information to criminally investigate or prosecute any alcohol or drug abuse patient.[facility]In the event this information is protected by the Federal Confidentiality of Alcohol and Drug Abuse Patient Records regulations: The Federal rules restrict any use of the information to criminally investigate or prosecute any alcohol or drug abuse patient.[facility]In the event this information is protected by the Federal Confidentiality of Alcohol and Drug Abuse Patient Records regulations: The Federal rules restrict any use of the information to criminally investigate or prosecute any alcohol or drug abuse patient.[facility]In the event this information is protected by the Federal Confidentiality of Alcohol and Drug Abuse Patient Records regulations: The Federal rules restrict any use of the information to criminally investigate or prosecute any alcohol or drug abuse patient.[facility]In the event this information is protected by the Federal Confidentiality of Alcohol and Drug Abuse Patient Records regulations: The Federal rules restrict any use of the information to criminally investigate or prosecute any alcohol or drug abuse patient.[facility]In the event this information is protected by the Federal Confidentiality of Alcohol and Drug Abuse Patient Records regulations: The Federal rules restrict any use of the information to criminally investigate or prosecute any alcohol or drug abuse patient.[facility]In the event this information is protected by the Federal Confidentiality of Alcohol and Drug Abuse Patient Records regulations: The Federal rules restrict any use of the information to criminally investigate or prosecute any alcohol or drug abuse patient.[facility]In the event this information is protected by the Federal Confidentiality of Alcohol and Drug Abuse Patient Records regulations: The Federal rules restrict any use of the information to criminally investigate or prosecute any alcohol or drug abuse patient.[facility]In the event this information is protected by the Federal Confidentiality of Alcohol and Drug Abuse Patient Records regulations: The Federal rules restrict any use of the information to criminally investigate or prosecute any alcohol or drug abuse patient.[facility]In the event this information is protected by the Federal Confidentiality of Alcohol and Drug Abuse Patient Records regulations: The Federal rules restrict any use of the information to criminally investigate or prosecute any alcohol or drug abuse patient.[facility]In the event this information is protected by the Federal Confidentiality of Alcohol and Drug Abuse Patient Records regulations: The Federal rules restrict any use of the information to criminally investigate or prosecute any alcohol or drug abuse patient.[facility]In the event this information is protected by the Federal Confidentiality of Alcohol and Drug Abuse Patient Records regulations: The Federal rules restrict any use of the information to criminally investigate or prosecute any alcohol or drug abuse patient.[facility]In the event this information is protected by the Federal Confidentiality of Alcohol and Drug Abuse Patient Records regulations: The Federal rules restrict any use of the information to criminally investigate or prosecute any alcohol or drug abuse patient.[facility]In the event this information is protected by the Federal Confidentiality of Alcohol and Drug Abuse Patient Records regulations: The Federal rules restrict any use of the information to criminally investigate or prosecute any alcohol or drug abuse patient.[facility]In the event this information is protected by the Federal Confidentiality of Alcohol and Drug Abuse Patient Records regulations: The Federal rules restrict any use of the information to criminally investigate or prosecute any alcohol or drug abuse patient.[facility]In the event this information is protected by the Federal Confidentiality of Alcohol and Drug Abuse Patient Records regulations: The Federal rules restrict any use of the information to criminally investigate or prosecute any alcohol or drug abuse patient.[facility]In the event this information is protected by the Federal Confidentiality of Alcohol and Drug Abuse Patient Records regulations: The Federal rules restrict any use of the information to criminally investigate or prosecute any alcohol or drug abuse patient.[facility]In the event this information is protected by the Federal Confidentiality of Alcohol and Drug Abuse Patient Records regulations: The Federal rules restrict any use of the information to criminally investigate or prosecute any alcohol or drug abuse patient.[facility]In the event this information is protected by the Federal Confidentiality of Alcohol and Drug Abuse Patient Records regulations: The Federal rules restrict any use of the information to criminally investigate or prosecute any alcohol or drug abuse patient.[facility]In the event this information is protected by the Federal Confidentiality of Alcohol and Drug Abuse Patient Records regulations: The Federal rules restrict any use of the information to criminally investigate or prosecute any alcohol or drug abuse patient.[facility]In the event this information is protected by the Federal Confidentiality of Alcohol and Drug Abuse Patient Records regulations: The Federal rules restrict any use of the information to criminally investigate or prosecute any alcohol or drug abuse patient.[facility]In the event this information is protected by the Federal Confidentiality of Alcohol and Drug Abuse Patient Records regulations: The Federal rules restrict any use of the information to criminally investigate or prosecute any alcohol or drug abuse patient.[facility]In the event this information is protected by the Federal Confidentiality of Alcohol and Drug Abuse Patient Records regulations: The Federal rules restrict any use of the information to criminally investigate or prosecute any alcohol or drug abuse patient.[facility]In the event this information is protected by the Federal Confidentiality of Alcohol and Drug Abuse Patient Records regulations: The Federal rules restrict any use of the information to criminally investigate or prosecute any alcohol or drug abuse patient.[facility]In the event this information is protected by the Federal Confidentiality of Alcohol and Drug Abuse Patient Records regulations: The Federal rules restrict any use of the information to criminally investigate or prosecute any alcohol or drug abuse patient.[facility]In the event this information is protected by the Federal Confidentiality of Alcohol and Drug Abuse Patient Records regulations: The Federal rules restrict any use of the information to criminally investigate or prosecute any alcohol or drug abuse patient.[facility]In the event this information is protected by the Federal Confidentiality of Alcohol and Drug Abuse Patient Records regulations: The Federal rules restrict any use of the information to criminally investigate or prosecute any alcohol or drug abuse patient.[facility]In the event this information is protected by the Federal Confidentiality of Alcohol and Drug Abuse Patient Records regulations: The Federal rules restrict any use of the information to criminally investigate or prosecute any alcohol or drug abuse patient.[facility]In the event this information is protected by the Federal Confidentiality of Alcohol and Drug Abuse Patient Records regulations: The Federal rules restrict any use of the information to criminally investigate or prosecute any alcohol or drug abuse patient.[facility]In the event this information is protected by the Federal Confidentiality of Alcohol and Drug Abuse Patient Records regulations: The Federal rules restrict any use of the information to criminally investigate or prosecute any alcohol or drug abuse patient.[facility]In the event this information is protected by the Federal Confidentiality of Alcohol and Drug Abuse Patient Records regulations: The Federal rules restrict any use of the information to criminally investigate or prosecute any alcohol or drug abuse patient.[facility] HospitalIn the event this information is protected by the Federal Confidentiality of Alcohol and Drug Abuse Patient Records regulations: The Federal rules restrict any use of the information to criminally investigate or prosecute any alcohol or drug abuse patient.[facility] HospitalIn the event this information is protected by the Federal Confidentiality of Alcohol and Drug Abuse Patient Records regulations: The Federal rules restrict any use of the information to criminally investigate or prosecute any alcohol or drug abuse patient.[facility] HospitalIn the event this information is protected by the Federal Confidentiality of Alcohol and Drug Abuse Patient Records regulations: The Federal rules restrict any use of the information to criminally investigate or prosecute any alcohol or drug abuse patient.[facility] HospitalIn the event this information is protected by the Federal Confidentiality of Alcohol and Drug Abuse Patient Records regulations: The Federal rules restrict any use of the information to criminally investigate or prosecute any alcohol or drug abuse patient.[facility] HospitalIn the event this information is protected by the Federal Confidentiality of Alcohol and Drug Abuse Patient Records regulations: The Federal rules restrict any use of the information to criminally investigate or prosecute any alcohol or drug abuse patient.[facility] HospitalIn the event this information is protected by the Federal Confidentiality of Alcohol and Drug Abuse Patient Records regulations: The Federal rules restrict any use of the information to criminally investigate or prosecute any alcohol or drug abuse patient.[facility] HospitalIn the event this information is protected by the Federal Confidentiality of Alcohol and Drug Abuse Patient Records regulations: The Federal rules restrict any use of the information to criminally investigate or prosecute any alcohol or drug abuse patient.[facility] HospitalIn the event this information is protected by the Federal Confidentiality of Alcohol and Drug Abuse Patient Records regulations: The Federal rules restrict any use of the information to criminally investigate or prosecute any alcohol or drug abuse patient.[facility] HospitalIn the event this information is protected by the Federal Confidentiality of Alcohol and Drug Abuse Patient Records regulations: The Federal rules restrict any use of the information to criminally investigate or prosecute any alcohol or drug abuse patient.[facility] HospitalIn the event this information is protected by the Federal Confidentiality of Alcohol and Drug Abuse Patient Records regulations: The Federal rules restrict any use of the information to criminally investigate or prosecute any alcohol or drug abuse patient.[facility] HospitalIn the event this information is protected by the Federal Confidentiality of Alcohol and Drug Abuse Patient Records regulations: The Federal rules restrict any use of the information to criminally investigate or prosecute any alcohol or drug abuse patient.[facility] HospitalIn the event this information is protected by the Federal Confidentiality of Alcohol and Drug Abuse Patient Records regulations: The Federal rules restrict any use of the information to criminally investigate or prosecute any alcohol or drug abuse patient.[facility] HospitalIn the event this information is protected by the Federal Confidentiality of Alcohol and Drug Abuse Patient Records regulations: The Federal rules restrict any use of the information to criminally investigate or prosecute any alcohol or drug abuse patient.[facility] HospitalIn the event this information is protected by the Federal Confidentiality of Alcohol and Drug Abuse Patient Records regulations: The Federal rules restrict any use of the information to criminally investigate or prosecute any alcohol or drug abuse patient.[facility] HospitalIn the event this information is protected by the Federal Confidentiality of Alcohol and Drug Abuse Patient Records regulations: The Federal rules restrict any use of the information to criminally investigate or prosecute any alcohol or drug abuse patient.[facility] HospitalIn the event this information is protected by the Federal Confidentiality of Alcohol and Drug Abuse Patient Records regulations: The Federal rules restrict any use of the information to criminally investigate or prosecute any alcohol or drug abuse patient.[facility] HospitalIn the event this information is protected by the Federal Confidentiality of Alcohol and Drug Abuse Patient Records regulations: The Federal rules restrict any use of the information to criminally investigate or prosecute any alcohol or drug abuse patient.[facility] HospitalIn the event this information is protected by the Federal Confidentiality of Alcohol and Drug Abuse Patient Records regulations: The Federal rules restrict any use of the information to criminally investigate or prosecute any alcohol or drug abuse patient.[facility] HospitalIn the event this information is protected by the Federal Confidentiality of Alcohol and Drug Abuse Patient Records regulations: The Federal rules restrict any use of the information to criminally investigate or prosecute any alcohol or drug abuse patient.[facility] HospitalIn the event this information is protected by the Federal Confidentiality of Alcohol and Drug Abuse Patient Records regulations: The Federal rules restrict any use of the information to criminally investigate or prosecute any alcohol or drug abuse patient.[facility] HospitalIn the event this information is protected by the Federal Confidentiality of Alcohol and Drug Abuse Patient Records regulations: The Federal rules restrict any use of the information to criminally investigate or prosecute any alcohol or drug abuse patient.[facility] HospitalIn the event this information is protected by the Federal Confidentiality of Alcohol and Drug Abuse Patient Records regulations: The Federal rules restrict any use of the information to criminally investigate or prosecute any alcohol or drug abuse patient.[facility] HospitalIn the event this information is protected by the Federal Confidentiality of Alcohol and Drug Abuse Patient Records regulations: The Federal rules restrict any use of the information to criminally investigate or prosecute any alcohol or drug abuse patient.[facility] HospitalIn the event this information is protected by the Federal Confidentiality of Alcohol and Drug Abuse Patient Records regulations: The Federal rules restrict any use of the information to criminally investigate or prosecute any alcohol or drug abuse patient.[facility] HospitalIn the event this information is protected by the Federal Confidentiality of Alcohol and Drug Abuse Patient Records regulations: The Federal rules restrict any use of the information to criminally investigate or prosecute any alcohol or drug abuse patient.[facility] HospitalIn the event this information is protected by the Federal Confidentiality of Alcohol and Drug Abuse Patient Records regulations: The Federal rules restrict any use of the information to criminally investigate or prosecute any alcohol or drug abuse patient.[facility] HospitalIn the event this information is protected by the Federal Confidentiality of Alcohol and Drug Abuse Patient Records regulations: The Federal rules restrict any use of the information to criminally investigate or prosecute any alcohol or drug abuse patient.[facility] HospitalIn the event this information is protected by the Federal Confidentiality of Alcohol and Drug Abuse Patient Records regulations: The Federal rules restrict any use of the information to criminally investigate or prosecute any alcohol or drug abuse patient.[facility] HospitalIn the event this information is protected by the Federal Confidentiality of Alcohol and Drug Abuse Patient Records regulations: The Federal rules restrict any use of the information to criminally investigate or prosecute any alcohol or drug abuse patient.[facility] Reason for Visit (unrecogniz ed section and content) Reason Comments Ear Problem follow upright ear a nd nose bleeds Specialty Diagnoses / Procedures Referred By Contact Referred To Contact Ent - Otolaryngology / ENT-OTOLARYNGOLOGY Diagnoses 6 mo follow up Procedures BD WHOLE BODY COMPOSITION UNLISTED CHEMISTRY TEST CLINIC VISIT NO CHARGE EST PATIENT VISIT LEVEL 5 EST HNI PATIENT Flash Pearl MD [address] [place] [address] [place] [address] [place] [address] Referral ID Status Reason Start Date Expiration Date Visits Re quested Visits Authorized [id number] Closed 07/09/2021 07/27/2021 99 99 Specialty Diagnoses / Procedures Referred By Contac t Referred To Contact Diagnoses CKD (chronic kidney disease) stage 4, GFR 15-29 ml/min (HCC) Myelodysplastic syndrome (HCC) 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 loss CRF (chronic renal failure), stage 4 (severe) (HCC) Anemia of chronic renal failure, stage 4 (severe) (HCC) Procedures DARBEPOETIN LARISA, NON-ESRD INJ RETACRIT NON-ESRD USE (RETACRIT) Asher Hummel MD [address] [place] [address] [place] [address] Sam Treat Roman [address] [place] [address] Referral ID Status Reason Start Date Expiration Date V isits Requested Visits Authorized [id number] Authorized 08/06/2021 02/01/2022 37 37 Reason Comments myeldysplastic syndrome followup Specialty Diagnoses / Procedures Referred By Contac t Referred To Contact Diagnoses Myelodysplastic syndrome (HCC) Procedures AZACITIDINE INJECTION PALONOSETRON HCL Asher Hummel MD [address] [place] [address] [place] [address] Sam Treat [place] Mc [address] [facility] [place] [address] Referral ID Status Reason Start Date Expiration Date V isits Requested Visits Authorized [id number] Authorized 06/28/2021 07/27/2022 99 99 Reason Comments Care Coordination Transfusion Update Reason Comments Care Coordination CBC Results Reason Comments Care Coordination Discharge Follow Up Call Reason Comments Care Coordination Hospital Admission Reason Comments Myelodysplastic Syndrome Reason Comments Myelodysplastic Syndrome 2 week follow u p Reason Comments B12 injections Reason Comments Future Appointment Reason Comments Care Coordination Critical Results Reason Comments Myelodysplastic Syndrome 4 week follow u p Reason Comments Lab Orders Referral ID Status Reason Start Date Expiration Date V isits Requested Visits Authorized [id number] Waiting for Response 08/06/2021 02/01/2022 37 37 Reason Comments Transfusion Reason Comments Care Coordination Results Reason Comments Care Coordination Lab results Referral ID Status Reason Start Date Expiration Date V isits Requested Visits Authorized [id number] Authorized 02/25/2022 04/25/2022 42 42 Reason Comments Results Reason Comments Care Coordination Referral Reason Comments Care Coordination Appointment Reason Comments Results CBC Reason Comments Patient Update Reason Comments Consult Specialty Diagnoses / Procedures Referred By Contac t Referred To Contact Diagnoses Myelodysplastic syndrome (HCC) Procedures CONSULT TO HEMATOLOGY/ONCOLOGY OFFICE/OUTPATIENT [facility] MDM 60-74 MINUTES Asher Hummel MD [address] [place] [address] [place] [address] Referral ID Status Reason Start Date Expiration Date V isits Requested Visits Authorized [id number] Closed PCP Requested Referral 03/15/2022 03/15/2023 1 1 Reason Comments myelodyplastic syndrome Bone Marrow Aspirate/Biopsy Reason Comments Myelodysplastic Syndrome 4 day follow up Reason Comments Care Coordination [facility] Specialty Diagnoses / Procedures Referred By Contac t Referred To Contact Diagnoses CKD (chronic kidney disease) stage 4, GFR 15-29 ml/min (HCC) Myelodysplastic syndrome (HCC) 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 loss CRF (chronic renal failure), stage 4 (severe) (HCC) Anemia of chronic renal failure, stage 4 (severe) (HCC) Procedures INJ RETACRIT NON-ESRD USE (RETACRIT) Asher Hummel MD [address] [facility] [address] [place] [address] [address] [place] [address] Referral ID Status Reason Start Date Expiration Date V isits Requested Visits Authorized [id number] Authorized 04/29/2022 06/27/2022 99 99 Reason Comments Myelodysplastic Syndrome 1 week follow u p Reason Comments Care Coordination Treatment Planning Reason Comments Care Coordination Antiemetics Reason Comments Care Coordination C1D1 Post Treatment Call Reason Comments MDS Follow up Reason Comments Prostate Cancer Followup Referral ID Status Reason Start Date Expiration Date V isits Requested Visits Authorized [id number] Authorized 04/29/2022 06/27/2022 15 15 Reason Comments Critical Results Referral ID Status Reason Start Date Expiration Date V isits Requested Visits Authorized [id number] Authorized 04/29/2022 06/27/2022 19 19 Reason Comments MDS 1 week follow up Referral ID Status Reason Start Date Expiration Date V isits Requested Visits Authorized [id number] Authorized 04/29/2022 12/24/2022 45 45 Reason Comments Care Coordination Oxygen Question Reason Comments Established Patient Reason Comments Retacrit Injection Reason Comments MDS OTV 1 week Reason Comments Care Coordination Order Request Reason Comments Care Coordination Transfusion Question Reason Comments Treatment Planning Reason Comments Care Coordination Medication Authoriza tion Referral ID Status Reason Start Date Expiration Date Visits Re quested Visits Authorized [id number] Closed 04/29/2022 12/24/2022 45 45 Reason Comments mds Treatment visit Reason Comments Care Coordination CBC Results; Transfu bravo Reason Comments Care Coordination Transfusion Orders Reason Comments Care Coordination Pt Update Reason Comments Care Coordination Hospice/Treatment Up date Reason Comments MDS (myelodysplastic syndrome) 3 week fo llow up Reason Comments Refill Request Care Teams (unrecognized sec tion and content) Computer Peripheral Equipment Operator Relationship Specialty Start Date End Date Flash Pearl MD [address] [place] [address] PCP - General 11/12/00 Sheng Gomez MD [address] [place] [address] Dietitian Assistant Cardiology 09/20/20 Asher Hummel MD [address] [facility] [place] [address] Physician Hematology/Oncology 06/29/21 Wilfred Martinez, SOURCING INTERN.FUNCTIONAL TESTER [employer] [address] [facility] [place] [address] Nurse Practitioner Hematology/Oncology 06/29/21 Angle Kamara, MONET [address] [facility] [place] [address] Specialty Callisthenics Instructor Hematology/Oncology 06/29/21 Computer Peripheral Equipment Operator Relationship Specialty Start Date End Date Flash Pearl MD [address] [place] [address] PCP - General 11/12/00 Sheng Gomez MD [address] [place] [address] Dietitian Assistant Cardiology 09/20/20 Asher Hummel MD [address] [facility] [place] [address] Physician Hematology/Oncology 06/29/21 Wilfred Martinez, SOURCING INTERN.FUNCTIONAL TESTER [employer] [address] [facility] [place] [address] Nurse Practitioner Hematology/Oncology 06/29/21 Angle Kamara, MONET [address] [facility] [place] [address] Specialty Callisthenics Instructor Hematology/Oncology 06/29/21 Computer Peripheral Equipment Operator Relationship Specialty Start Date End Date Flash Pearl MD [address] [place] [address] PCP - General 11/12/00 Sheng Gomez MD [address] [place] [address] Dietitian Assistant Cardiology 09/20/20 Asher Hummel MD [address] [facility] [place] [address] Physician Hematology/Oncology 06/29/21 Wilfred Martinez, SOURCING INTERN.FUNCTIONAL [employer] [address] [facility] [place] [address] Nurse Practitioner Hematology/Oncology 06/29/21 Angle Kamara, MONET [address] [facility] [place] [address] Specialty Callisthenics Instructor Hematology/Oncology 06/29/21 Computer Peripheral Equipment Operator Relationship Specialty Start Date End Date Flash Pearl MD [address] [place] [address] PCP - General 11/12/00 Sheng Gomez MD [address] [place] [address] Dietitian Assistant Cardiology 09/20/20 Asher Hummel MD [address] [facility] [place] [address] Physician Hematology/Oncology 06/29/21 Wilfred Martinez, SOURCING INTERN.FUNCTIONAL TESTER [employer] [address] [facility] [place] [address] Nurse Practitioner Hematology/Oncology 06/29/21 Angle Kamara, RN [address] [facility] [place] [address] Specialty Callisthenics Instructor Hematology/Oncology 06/29/21 Computer Peripheral Equipment Operator Relationship Specialty Start Date End Date Flash Pearl MD [address] [place] [address] PCP - General 11/12/00 Sheng Gomez MD [address] [place] [address] Dietitian Assistant Cardiology 09/20/20 Asher Hummel MD [address] [facility] [place] [address] Physician Hematology/Oncology 06/29/21 Wilfred Martinez, SOURCING INTERN.FUNCTIONAL [employer]STER [employer] [address] [facility] [place] [address] Nurse Practitioner Hematology/Oncology 06/29/21 Angle Kamara, RN [address] [facility] [place] [address] Specialty Callisthenics Instructor Hematology/Oncology 06/29/21 Computer Peripheral Equipment Operator Relationship Specialty Start Date End Date Flash Pearl MD [address] [place] [address] PCP - General 11/12/00 Sheng Gomez MD [address] [place] [address] Dietitian Assistant Cardiology 09/20/20 Asher Hummel MD [address] [facility] [place] [address] Physician Hematology/Oncology 06/29/21 Wilfred Martinez, SOURCING INTERN.FUNCTIONAL TESTER [employer] [address] [facility] [place] [address] Nurse Practitioner Hematology/Oncology 06/29/21 Angle Kamara, RN [address] [facility] [place] [address] Specialty Callisthenics Instructor Hematology/Oncology 06/29/21 Computer Peripheral Equipment Operator Relationship Specialty Start Date End Date Flash Pearl MD [address] [place] [address] PCP - General 11/12/00 Sheng Gomez MD [address] [place] [address] Dietitian Assistant Cardiology 09/20/20 Asher Hummel MD [address] [facility] [place] [address] Physician Hematology/Oncology 06/29/21 Wilfred Martinez, SOURCING INTERN.FUNCTIONAL TESTER [employer] [address] [facility] [place] [address] Nurse Practitioner Hematology/Oncology 06/29/21 Angle Kamara, RN [address] [facility] [place] [address] Specialty Callisthenics Instructor Hematology/Oncology 06/29/21 Computer Peripheral Equipment Operator Relationship Specialty Start Date End Date Flash Pearl MD [address] [place] [address] PCP - General 11/12/00 Sheng Gomez MD [address] [place] [address] Dietitian Assistant Cardiology 09/20/20 Asher Hummel MD [address] [facility] [place] [address] Physician Hematology/Oncology 06/29/21 Wilfred Martinez, SOURCING INTERN.FUNCTIONAL TESTER [employer] [address] [facility] [place] [address] Nurse Practitioner Hematology/Oncology 06/29/21 Angle Kamara, MONET [address] [facility] [place] [address] Specialty Callisthenics Instructor Hematology/Oncology 06/29/21 Computer Peripheral Equipment Operator Relationship Specialty Start Date End Date Flash Pearl MD [address] [place] [address] PCP - General 11/12/00 Sheng Gomez MD [address] [place] [address] Dietitian Assistant Cardiology 09/20/20 Asher Hummel MD [address] [facility] [place] [address] Physician Hematology/Oncology 06/29/21 Wilfred Martinez, SOURCING INTERN.FUNCTIONAL TESTER [employer] [address] [facility] [place] [address] Nurse Practitioner Hematology/Oncology 06/29/21 Angle Kamara, RN [address] [facility] [place] [address] Specialty Callisthenics Instructor Hematology/Oncology 06/29/21 Computer Peripheral Equipment Operator Relationship Specialty Start Date End Date Flash Pearl MD [address] [place] [address] PCP - General 11/12/00 Sheng Gomez MD [address] [place] [address] Dietitian Assistant Cardiology 09/20/20 Asher Hummel MD [address] [facility] [place] [address] Physician Hematology/Oncology 06/29/21 Wilfred Martinez, SOURCING INTERN.FUNCTIONAL TESTER [employer] [address] [facility] [place] [address] Nurse Practitioner Hematology/Oncology 06/29/21 Angle Kamara, RN [address] [facility] [place] [address] Specialty Callisthenics Instructor Hematology/Oncology 06/29/21 Computer Peripheral Equipment Operator Relationship Specialty Start Date End Date Flash Pearl MD [address] [place] [address] PCP - General 11/12/00 Sheng Gomez MD [address] [place] [address] Dietitian Assistant Cardiology 09/20/20 Asher Hummel MD [address] [facility] [place] [address] Physician Hematology/Oncology 06/29/21 Wilfred Martinez, SOURCING INTERN.FUNCTIONAL TESTER [employer] [address] [facility] [place] [address] Nurse Practitioner Hematology/Oncology 06/29/21 Angle Kamara, MONET [address] [facility] [place] [address] Specialty Callisthenics Instructor Hematology/Oncology 06/29/21 Computer Peripheral Equipment Operator Relationship Specialty Start Date End Date Flash Pearl MD [address] [place] [address] PCP - General 11/12/00 Sheng Gomez MD [address] [place] [address] Dietitian Assistant Cardiology 09/20/20 Asher Hummel MD [address] [facility] [place] [address] Physician Hematology/Oncology 06/29/21 Wilfred Martinez, SOURCING INTERN.FUNCTIONAL TESTER [employer] [address] [facility] [place] [address] Nurse Practitioner Hematology/Oncology 06/29/21 Angle Kamara, MONET [address] [facility] [place] [address] Specialty Callisthenics Instructor Hematology/Oncology 06/29/21 Computer Peripheral Equipment Operator Relationship Specialty Start Date End Date Flash Pearl MD [address] [place] [address] PCP - General 11/12/00 Sheng Gomez MD [address] [place] [address] Dietitian Assistant Cardiology 09/20/20 Asher Hummel MD [address] [facility] [place] [address] Physician Hematology/Oncology 06/29/21 Wilfred Martinez, SOURCING INTERN.FUNCTIONAL TESTER [employer] [address] [facility] [place] [address] Nurse Practitioner Hematology/Oncology 06/29/21 Angle Kamara, RN [address] [facility] [place] [address] Specialty Callisthenics Instructor Hematology/Oncology 06/29/21 Computer Peripheral Equipment Operator Relationship Specialty Start Date End Date Flash Pearl MD [address] [place] [address] PCP - General 11/12/00 Sheng Gomez MD [address] [place] [address] Dietitian Assistant Cardiology 09/20/20 Asher Hummel MD [address] [facility] [place] [address] Physician Hematology/Oncology 06/29/21 Wilfred Martinez, SOURCING INTERN.FUNCTIONAL TESTER [employer] [address] [facility] [place] [address] Nurse Practitioner Hematology/Oncology 06/29/21 Angle Kamara, MONET [address] [facility] [place] [address] Specialty Callisthenics Instructor Hematology/Oncology 06/29/21 Computer Peripheral Equipment Operator Relationship Specialty Start Date End Date Flash Pearl MD [address] [place] [address] PCP - General 11/12/00 Sheng Gomez MD [address] [place] [address] Dietitian Assistant Cardiology 09/20/20 Asher Hummel MD [address] [facility] [place] [address] Physician Hematology/Oncology 06/29/21 Wilfred Martinez, SOURCING INTERN.FUNCTIONAL TESTER [employer] [address] [facility] [place] [address] Nurse Practitioner Hematology/Oncology 06/29/21 Angle Kamara, OMNET [address] [facility] [place] [address] Specialty Callisthenics Instructor Hematology/Oncology 06/29/21 Computer Peripheral Equipment Operator Relationship Specialty Start Date End Date Flash Pearl MD [address] [place] [address] PCP - General 11/12/00 Sheng Gomez MD [address] [place] [address] Dietitian Assistant Cardiology 09/20/20 Asher Hummel MD [address] [facility] [place] [address] Physician Hematology/Oncology 06/29/21 Wilfred Martinez, SOURCING INTERN.FUNCTIONAL TESTER [employer] [address] [facility] [address] [place], [place] [address] Nurse Practitioner Hematology/Oncology 06/29/21 Angle Kamara, MONET [address] [facility] [place] [address] Specialty Callisthenics Instructor Hematology/Oncology 06/29/21 Computer Peripheral Equipment Operator Relationship Specialty Start Date End Date Flash Pearl MD [address] [place] [address] PCP - General 11/12/00 Sheng Gomez MD [address] [place] [address] Dietitian Assistant Cardiology 09/20/20 Asher Hummel MD [address] [facility] [place] [address] Physician Hematology/Oncology 06/29/21 Wilfred Martinez, SOURCING INTERN.FUNCTIONAL TESTER TYPEWRITERS [address] [facility] [place] [address] Nurse Practitioner Hematology/Oncology 06/29/21 Angle Kamara, RN [address] [facility] [place] [address] Specialty Callisthenics Instructor Hematology/Oncology 06/29/21 Computer Peripheral Equipment Operator Relationship Specialty Start Date End Date Flash Pearl MD [address] [place] [address] PCP - General 11/12/00 Sheng Gomez MD [address] [place] [address] Dietitian Assistant Cardiology 09/20/20 Asher Hummel MD [address] [facility] [place] [address] Physician Hematology/Oncology 06/29/21 Wilfred Martinez, SOURCING INTERN.FUNCTIONAL TESTER TYPEWRITERS [address] [facility] [place] [address] Nurse Practitioner Hematology/Oncology 06/29/21 Angle Kamara, MONET [address] [facility] [place] [address] Specialty Callisthenics Instructor Hematology/Oncology 06/29/21 Computer Peripheral Equipment Operator Relationship Specialty Start Date End Date Flash Pearl MD [address] [place] [address] PCP - General 11/12/00 Sheng Gomez MD [address] [place] [address] Dietitian Assistant Cardiology 09/20/20 Asher Hummel MD [address] [facility] [place] [address] Physician Hematology/Oncology 06/29/21 Wilfred Martinez, SOURCING INTERN.FUNCTIONAL TESTER TYPEWRITERS [address] [facility] [place] [address] Nurse Practitioner Hematology/Oncology 06/29/21 Angle Kamara, MONET [address] [facility] [place] [address] Specialty Callisthenics Instructor Hematology/Oncology 06/29/21 Computer Peripheral Equipment Operator Relationship Specialty Start Date End Date Flash Pearl MD [address] [place] [address] PCP - General 11/12/00 Sheng Gomez MD [address] [place] [address] Dietitian Assistant Cardiology 09/20/20 Asher Hummel MD [address] [facility] [place] [address] Physician Hematology/Oncology 06/29/21 Wilfred Martinez, SOURCING INTERN.FUNCTIONAL TESTER TYPEWRITERS [address] [facility] [place] [address] Nurse Practitioner Hematology/Oncology 06/29/21 Angle Kamara, MONET [address] [facility] [place] [address] Specialty Callisthenics Instructor Hematology/Oncology 06/29/21 Computer Peripheral Equipment Operator Relationship Specialty Start Date End Date Flash Pearl MD [address] [place] [address] PCP - General 11/12/00 Sheng Gomez MD [address] [place] [address] Dietitian Assistant Cardiology 09/20/20 Asher Hummel MD [address] [facility] [place] [address] Physician Hematology/Oncology 06/29/21 Wilfred Martinez, SOURCING INTERN.FUNCTIONAL TESTER TYPEWRITERS [address] [facility] [place] [address] Nurse Practitioner Hematology/Oncology 06/29/21 Angle Kamara, MONET [address] [facility] [place] [address] Specialty Callisthenics Instructor Hematology/Oncology 06/29/21 Computer Peripheral Equipment Operator Relationship Specialty Start Date End Date Flash Pearl MD [address] [place] [address] PCP - General 11/12/00 Sheng Gomez MD [address] [place] [address] Dietitian Assistant Cardiology 09/20/20 Asher Hummel MD [address] [facility] [place] [address] Physician Hematology/Oncology 06/29/21 Wilfred Martinez, SOURCING INTERN.FUNCTIONAL TESTER [employer]WRITERS [address] [facility] [place] [address] Nurse Practitioner Hematology/Oncology 06/29/21 Angle Kamara, MONET [address] [facility] [place] [address] Specialty Callisthenics Instructor Hematology/Oncology 06/29/21 Computer Peripheral Equipment Operator Relationship Specialty Start Date End Date Flash Pearl MD [address] [place] [address] PCP - General 11/12/00 Sheng Gomez MD [address] [place] [address] Dietitian Assistant Cardiology 09/20/20 Asher Hummel MD [address] [facility] [place] [address] Physician Hematology/Oncology 06/29/21 Wilfred Martinez, SOURCING INTERN.[address] [place] [address] Nurse Practitioner Hematology/Oncology 06/29/21 Angle Kamara, MONET [address] [place] [address] [place] [address] Specialty Callisthenics Instructor Hematology/Oncology 06/29/21 Computer Peripheral Equipment Operator Relationship Specialty Start Date End Date Flash Pearl MD [address] [place] [address] PCP - General 11/12/00 Sheng Gomez MD [address] [place] [address] Dietitian Assistant Cardiology 09/20/20 Asher Hummel MD [address] [facility] [place] [address] Physician Hematology/Oncology 06/29/21 Wilfred Martinez, SOURCING INTERN.FUNCTIONAL TESTER TYPEWRITERS [address] [place] [address] [place] [address] Nurse Practitioner Hematology/Oncology 06/29/21 Angle Kamara, RN [address] [facility] [place] [address] Specialty Callisthenics Instructor Hematology/Oncology 06/29/21 Computer Peripheral Equipment Operator Relationship Specialty Start Date End Date Flash Pearl MD [address] [place] [address] PCP - General 11/12/00 Sheng Gomez MD [address] [place] [address] Dietitian Assistant Cardiology 09/20/20 Asher Hummel MD [address] [facility] [address] [place], [place] [address] Physician Hematology/Oncology 06/29/21 Wilfred Martinez, SOURCING INTERN.FUNCTIONAL TESTER [employer]WRITERS [address] [facility] [place] [address] Nurse Practitioner Hematology/Oncology 06/29/21 Angle Kamara, RN [address] [facility] [place] [address] Specialty Callisthenics Instructor Hematology/Oncology 06/29/21 Computer Peripheral Equipment Operator Relationship Specialty Start Date End Date Flash Pearl MD [address] [place] [address] PCP - General 11/12/00 Sheng Gomez MD [address] [place] [address] Dietitian Assistant Cardiology 09/20/20 Asher Hummel MD [address] [facility] [place] [address] Physician Hematology/Oncology 06/29/21 Wilfred Martinez, SOURCING INTERN.FUNCTIONAL TESTER TYPEWRITERS [address] [facility] [place] [address] Nurse Practitioner Hematology/Oncology 06/29/21 Angle Kamara, RN [address] [facility] [place] [address] Specialty Callisthenics Instructor Hematology/Oncology 06/29/21 Computer Peripheral Equipment Operator Relationship Specialty Start Date End Date Flash Pearl MD [address] [place] [address] PCP - General 11/12/00 Sheng Gomez MD [address] [place] [address] Dietitian Assistant Cardiology 09/20/20 Asher Hummel MD [address] [facility] [place] [address] Physician Hematology/Oncology 06/29/21 Wilfred Martinez, SOURCING INTERN.FUNCTIONAL TESTER TYPEWRITERS [address] [facility] [place] [address] Nurse Practitioner Hematology/Oncology 06/29/21 Angle Kamara, MONET [address] [facility] [place] [address] Specialty Callisthenics Instructor Hematology/Oncology 06/29/21 Computer Peripheral Equipment Operator Relationship Specialty Start Date End Date Flash Pearl MD [address] [place] [address] PCP - General 11/12/00 Sheng Gomez MD [address] [place] [address] Dietitian Assistant Cardiology 09/20/20 Asher Hummel MD [address] [facility] [place] [address] Physician Hematology/Oncology 06/29/21 Wilfred Martinez, SOURCING INTERN.FUNCTIONAL TESTER [employer]WRITERS [address] [facility] [place] [address] Nurse Practitioner Hematology/Oncology 06/29/21 Angle Kamara, MONET [address] [facility] [place] [address] Specialty Callisthenics Instructor Hematology/Oncology 06/29/21 Computer Peripheral Equipment Operator Relationship Specialty Start Date End Date Flash Pearl MD [address] [place] [address] PCP - General 11/12/00 Sheng Gomez MD [address] [place] [address] Dietitian Assistant Cardiology 09/20/20 Asher Hummel MD [address] [facility] [place] [address] Physician Hematology/Oncology 06/29/21 Wilfred Matrinez, SOURCING INTERN.FUNCTIONAL TESTER TYPEWRITERS [address] [facility] [place] [address] Nurse Practitioner Hematology/Oncology 06/29/21 Angle Kamara, RN [address] [facility] [place] [address] Specialty Callisthenics Instructor Hematology/Oncology 06/29/21 Computer Peripheral Equipment Operator Relationship Specialty Start Date End Date Flash Pearl MD [address] [place] [address] PCP - General 11/12/00 Sheng Gomez MD [address] [place] [address] Dietitian Assistant Cardiology 09/20/20 Asher Hummel MD [address] [facility] [place] [address] Physician Hematology/Oncology 06/29/21 Wilfred Martinez, SOURCING INTERN.FUNCTIONAL TESTER TYPEWRITERS [address] [facility] [place] [address] Nurse Practitioner Hematology/Oncology 06/29/21 Angle Kamara, RN [address] [facility] [place] [address] Specialty Callisthenics Instructor Hematology/Oncology 06/29/21 Computer Peripheral Equipment Operator Relationship Specialty Start Date End Date Flash Pearl MD [address] [place] [address] PCP - General 11/12/00 Sheng Gomez MD [address] [place] [address] Dietitian Assistant Cardiology 09/20/20 Asher Hummel MD [address] [facility] [place] [address] Physician Hematology/Oncology 06/29/21 Wilfred Martinez, SOURCING INTERN.FUNCTIONAL TESTER TYPEWRITERS [address] [facility] [place] [address] Nurse Practitioner Hematology/Oncology 06/29/21 Angle Kamara, MONET [address] [facility] [place] [address] Specialty Callisthenics Instructor Hematology/Oncology 06/29/21 Computer Peripheral Equipment Operator Relationship Specialty Start Date End Date Flash Pearl MD [address] [place] [address] PCP - General 11/12/00 Sheng Gomez MD [address] [place] [address] Dietitian Assistant Cardiology 09/20/20 Asher Hummel MD [address] [facility] [place] [address] Physician Hematology/Oncology 06/29/21 Wilfred Martinez, SOURCING INTERN.FUNCTIONAL TESTER TYPEWRITERS [address] [facility] [place] [address] Nurse Practitioner Hematology/Oncology 06/29/21 Angle Kamara, MONET [address] [facility] [place] [address] Specialty Callisthenics Instructor Hematology/Oncology 06/29/21 Computer Peripheral Equipment Operator Relationship Specialty Start Date End Date Flash Pearl MD [address] [place] [address] PCP - General 11/12/00 Sheng Gomez MD [address] [place] [address] Dietitian Assistant Cardiology 09/20/20 Asher Hummel MD [address] [facility] [place] [address] Physician Hematology/Oncology 06/29/21 Wilfred Martinez, SOURCING INTERN.FUNCTIONAL TESTER TYPEWRITERS [address] [facility] [place] [address] Nurse Practitioner Hematology/Oncology 06/29/21 Angle Kamara, RN [address] [facility] [place] [address] Specialty Callisthenics Instructor Hematology/Oncology 06/29/21 Computer Peripheral Equipment Operator Relationship Specialty Start Date End Date Flash Pearl MD [address] [place] [address] PCP - General 11/12/00 Sheng Gomez MD [address] [place] [address] Dietitian Assistant Cardiology 09/20/20 Asher Hummel MD [address] [facility] [place] [address] Physician Hematology/Oncology 06/29/21 Wilfred Martinez, SOURCING INTERN.FUNCTIONAL TESTER TYPEWRITERS [address] [facility] [place] [address] Nurse Practitioner Hematology/Oncology 06/29/21 Angle Kamara, MONET [address] [facility] [place] [address] Specialty Callisthenics Instructor Hematology/Oncology 06/29/21 Computer Peripheral Equipment Operator Relationship Specialty Start Date End Date Flash Pearl MD [address] [place] [address] PCP - General 11/12/00 Sheng Gomez MD [address] [place] [address] Dietitian Assistant Cardiology 09/20/20 Asher Hummel MD [address] [facility] [place] [address] Physician Hematology/Oncology 06/29/21 Wilfred Martinez, SOURCING INTERN.[facility] [address] [facility] [place] [address] Nurse Practitioner Hematology/Oncology 06/29/21 Angle Kamara, MONET [address] [facility] [place] [address] Specialty Callisthenics Instructor Hematology/Oncology 06/29/21 Computer Peripheral Equipment Operator Relationship Specialty Start Date End Date Flash Pearl MD [address] [place] [address] PCP - General 11/12/00 Sheng Gomez MD [address] [place] [address] Dietitian Assistant Cardiology 09/20/20 Asher Hummel MD [address] [facility] [place] [address] Physician Hematology/Oncology 06/29/21 Wilfred Martinez, SOURCING INTERN.FUNCTIONAL TESTER TYPEWRITERS [address] [facility] [place] [address] Nurse Practitioner Hematology/Oncology 06/29/21 Angle Kamara, RN [address] [facility] [place] [address] Specialty Callisthenics Instructor Hematology/Oncology 06/29/21 Computer Peripheral Equipment Operator Relationship Specialty Start Date End Date Flash Pearl MD [address] [place] [address] PCP - General 11/12/00 Sheng Gomez MD [address] [place] [address] Dietitian Assistant Cardiology 09/20/20 Asher Hummel MD [address] [facility] [place] [address] Physician Hematology/Oncology 06/29/21 Wilfred Martinez, SOURCING INTERN.FUNCTIONAL TESTER TYPEWRITERS [address] [facility] [place] [address] Nurse Practitioner Hematology/Oncology 06/29/21 Angle Kamara, RN [address] [facility] [place] [address] Specialty Callisthenics Instructor Hematology/Oncology 06/29/21 Computer Peripheral Equipment Operator Relationship Specialty Start Date End Date Flash Pearl MD [address] [place] [address] PCP - General 11/12/00 Sheng Gomez MD [address] [place] [address] Dietitian Assistant Cardiology 09/20/20 Asher Hummel MD [address] [facility] [place] [address] Physician Hematology/Oncology 06/29/21 Wilfred Martinez, SOURCING INTERN.FUNCTIONAL TESTER TYPEWRITERS [address] [facility] [place] [address] Nurse Practitioner Hematology/Oncology 06/29/21 Angle Kamara, MONET [address] [facility] [place] [address] Specialty Callisthenics Instructor Hematology/Oncology 06/29/21 Computer Peripheral Equipment Operator Relationship Specialty Start Date End Date Flash Pearl MD [address] [place] [address] PCP - General 11/12/00 Sheng Gomez MD [address] [place] [address] Dietitian Assistant Cardiology 09/20/20 Asher Hummel MD [address] [facility] [place] [address] Physician Hematology/Oncology 06/29/21 Wilfred Martinez, SOURCING INTERN.FUNCTIONAL TESTER [employer]WRITERS [address] [facility] [place] [address] Nurse Practitioner Hematology/Oncology 06/29/21 Angle Kamara, MONET [address] [facility] [place] [address] Specialty Callisthenics Instructor Hematology/Oncology 06/29/21 Computer Peripheral Equipment Operator Relationship Specialty Start Date End Date Flash Pearl MD [address] [place] [address] PCP - General 11/12/00 Sheng Gomez MD [address] [place] [address] Dietitian Assistant Cardiology 09/20/20 Asher Hummel MD [address] [facility] [place] [address] Physician Hematology/Oncology 06/29/21 Wilfred Martinez, SOURCING INTERN.FUNCTIONAL TESTER TYPEWRITERS [address] [facility] [place] [address] Nurse Practitioner Hematology/Oncology 06/29/21 Angle Kamara, RN [address] [facility] [place] [address] Specialty Callisthenics Instructor Hematology/Oncology 06/29/21 Computer Peripheral Equipment Operator Relationship Specialty Start Date End Date Flash Pearl MD [address] [place] [address] PCP - General 11/12/00 Sheng Gomez MD [address] [place] [address] Dietitian Assistant Cardiology 09/20/20 Asher Hummel MD [address] [facility] [place] [address] Physician Hematology/Oncology 06/29/21 Wilfred Martinez, SOURCING INTERN.FUNCTIONAL TESTER TYPEWRITERS [address] [facility] [place] [address] Nurse Practitioner Hematology/Oncology 06/29/21 Angle Kamara, RN [address] [facility] [place] [address] Specialty Callisthenics Instructor Hematology/Oncology 06/29/21 Computer Peripheral Equipment Operator Relationship Specialty Start Date End Date Flash Pearl MD [address] [place] [address] PCP - General 11/12/00 Sheng Gomez MD [address] [place] [address] Dietitian Assistant Cardiology 09/20/20 Asher Hummel MD [address] [facility] [place] [address] Physician Hematology/Oncology 06/29/21 Wilfred Martinez, SOURCING INTERN.FUNCTIONAL TESTER [employer]WRITERS [address] [facility] [place] [address] Nurse Practitioner Hematology/Oncology 06/29/21 Angle Kamara, MONET [address] [facility] [place] [address] Specialty Callisthenics Instructor Hematology/Oncology 06/29/21 Computer Peripheral Equipment Operator Relationship Specialty Start Date End Date Flash Pearl MD [address] [place] [address] PCP - General 11/12/00 Sheng Gomez MD [address] [place] [address] Dietitian Assistant Cardiology 09/20/20 Asher Hummel MD [address] [facility] [place] [address] Physician Hematology/Oncology 06/29/21 Wilfred Martinez, SOURCING INTERN.FUNCTIONAL TESTER [employer]WRITERS [address] [facility] [place] [address] Nurse Practitioner Hematology/Oncology 06/29/21 Angle Kamara, RN [address] [facility] [place] [address] Specialty Callisthenics Instructor Hematology/Oncology 06/29/21 Computer Peripheral Equipment Operator Relationship Specialty Start Date End Date Flash Pearl MD [address] [place] [address] PCP - General 11/12/00 Sheng Gomez MD [address] [place] [address] Dietitian Assistant Cardiology 09/20/20 Asher Hummel MD [address] [facility] [place] [address] Physician Hematology/Oncology 06/29/21 Wilfred Martinez, SOURCING INTERN.FUNCTIONAL TESTER TYPEWRITERS [address] [facility] [place] [address] Nurse Practitioner Hematology/Oncology 06/29/21 Angle Kamara, RN [address] [facility] [place] [address] Specialty Callisthenics Instructor Hematology/Oncology 06/29/21 Computer Peripheral Equipment Operator Relationship Specialty Start Date End Date Flash Pearl MD [address] [place] [address] PCP - General 11/12/00 Sheng Gomez MD [address] [place] [address] Dietitian Assistant Cardiology 09/20/20 Asher Hummel MD [address] [facility] [place] [address] Physician Hematology/Oncology 06/29/21 Wilfred Martinez, SOURCING INTERN.FUNCTIONAL TESTER [employer]WRITERS [address] [facility] [place] [address] Nurse Practitioner Hematology/Oncology 06/29/21 Angle Kamara, RN [address] [facility] [place] [address] Specialty Callisthenics Instructor Hematology/Oncology 06/29/21 Computer Peripheral Equipment Operator Relationship Specialty Start Date End Date Pearl, Flash Edward, MD [address] [place] [address] PCP - General 11/12/00 Sheng Gomez MD [address] [place] [address] Dietitian Assistant Cardiology 09/20/20 Asher Hummel MD [address] [facility] [place] [address] Physician Hematology/Oncology 06/29/21 Wilfred Martinez, SOURCING INTERN.FUNCTIONAL TESTER [employer]WRITERS [address] [facility] [place] [address] Nurse Practitioner Hematology/Oncology 06/29/21 Angle Kamara, MONET [address] [facility] [place] [address] Specialty Callisthenics Instructor Hematology/Oncology 06/29/21 Computer Peripheral Equipment Operator Relationship Specialty Start Date End Date Flash Pearl MD [address] [place] [address] PCP - General 11/12/00 hSeng Gomez MD [address] [place] [address] Dietitian Assistant Cardiology 09/20/20 Asher Hummel MD [address] [facility] [place] [address] Physician Hematology/Oncology 06/29/21 Wilfred Martinez, SOURCING INTERN.FUNCTIONAL TESTER [employer]WRITERS [address] [facility] [place] [address] Nurse Practitioner Hematology/Oncology 06/29/21 Angle Kamara, MONET [address] [facility] [place] [address] Specialty Callisthenics Instructor Hematology/Oncology 06/29/21 Computer Peripheral Equipment Operator Relationship Specialty Start Date End Date Flash Pearl MD [address] [place] [address] PCP - General 11/12/00 Sheng Gomez MD [address] [place] [address] Dietitian Assistant Cardiology 09/20/20 Asher Hummel MD [address] [facility] [place] [address] Physician Hematology/Oncology 06/29/21 Wilfred Martinez, SOURCING INTERN.FUNCTIONAL TESTER [employer]WRIT[employer] [address] [facility] [place] [address] Nurse Practitioner Hematology/Oncology 06/29/21 Angle Kamara, MONET [address] [facility] [place] [address] Specialty Callisthenics Instructor Hematology/Oncology 06/29/21 Computer Peripheral Equipment Operator Relationship Specialty Start Date End Date Flash Pearl MD [address] [place] [address] PCP - General 11/12/00 Sheng Gomez MD [address] [place] [address] Dietitian Assistant Cardiology 09/20/20 Asher Hummel MD [address] [facility] [place] [address] Physician Hematology/Oncology 06/29/21 Wilfred Martinez, SOURCING INTERN.FUNCTIONAL TESTER [employer]WRIT[employer] [address] [facility] [place] [address] Nurse Practitioner Hematology/Oncology 06/29/21 Angle Kamara, MONET [address] [facility] [place] [address] Specialty Callisthenics Instructor Hematology/Oncology 06/29/21 Computer Peripheral Equipment Operator Relationship Specialty Start Date End Date Flash Pearl MD [address] [place] [address] PCP - General 11/12/00 Sheng Gomez MD [address] [place] [address] Dietitian Assistant Cardiology 09/20/20 Asher Hummel MD [address] [facility] [place] [address] Physician Hematology/Oncology 06/29/21 Wilfred Martinez, SOURCING INTERN.FUNCTIONAL TESTER [employer]IT[employer] [address] [facility] [place] [address] Nurse Practitioner Hematology/Oncology 06/29/21 Angle Kamara, MONET [address] [facility] [place] [address] Specialty Callisthenics Instructor Hematology/Oncology 06/29/21 [facility] Paraoptometric 11/17/22 Computer Peripheral Equipment Operator Relationship Specialty Start Date End Date Flash Pearl MD [address] [place] [address] PCP - General 11/12/00 Sheng Gomez MD [address] [facility] [place] [address] Dietitian Assistant Cardiology 09/20/20 Asher Hummel MD [address] [facility] [place] [address] Physician Hematology/Oncology 06/29/21 Wilfred Martinez, SOURCING INTERN.FUNCTIONAL TESTER [employer]WRIT[employer] [address] [facility] [place] [address] Nurse Practitioner Hematology/Oncology 06/29/21 Angle Kamara, MONET [address] [facility] [place] [address] Specialty Callisthenics Instructor Hematology/Oncology 06/29/21 [facility] Paraoptometric 11/17/22 Computer Peripheral Equipment Operator Relationship Specialty Start Date End Date Flash Pearl MD [address] [place] [address] PCP - General 11/12/00 Sheng Gomez MD [address] [place], [place] [address] [address] Dietitian Assistant Cardiology 09/20/20 Asher Hummel MD [address] [facility] [place] [address] Physician Hematology/Oncology 06/29/21 Wilfred Martinez, SOURCING INTERN.FUNCTIONAL TESTER [employer]IT[employer] [address] [facility] [place] [address] Nurse Practitioner Hematology/Oncology 06/29/21 Angle Kamara, MONET [address] [facility] [place] [address] Specialty Callisthenics Instructor Hematology/Oncology 06/29/21 [facility] Paraoptometric 11/17/22 FOR RECORDS PERTAINING TO PATIENTS WHO ARE OR HAVE BEEN ENROLLED IN A CHEMICAL DEPENDENCY/SUBSTANCEABUSE PROGRAM, SOME INFORMATION MAY BE OMITTED. This clinical summary was aggregated from multiple sources. Caution should be exercised in using it in the provision of clinical care. This summary normalizes information from multiple sources, and as a consequence, information in this document may materially change the coding, format and clinical context of patient data. In addition, data may be omitted in some cases. CLINICAL DECISIONS SHOULD BE BASED ON THE PRIMARY CLINICAL RECORDS. [employer] [facility]. provides no warranty or guarantee of the accuracy or completeness of information in this document.
[2023-07-17 15:50] LABS: Basophils Percent Auto 0.4 % (0.2-2.0); Hemoglobin 7.2 g/dL (14.0-18.0); Immature Granulocytes Abs Auto 0.07 10^3/uL (0.00-0.03); Immature Granulocytes Pct Auto 3.1 % (0.0-0.5); Lymphocytes Absolute Auto 0.7 10^3/uL (1.2-3.8); Lymphocytes Percent Auto 31.4 % (20.5-60.0); Mean Corpuscular HGB Conc 31.3 g/dL (29.9-35.2); Mean Corpuscular Hemoglobin 32.1 pg (25.9-34.0); Mean Corpuscular Volume 102.7 fL (80.0-94.0); Mean Platelet Volume 13.1 fL (9.5-13.5); Monocytes Absolute Auto 0.5 10^3/uL (0.3-0.8); Monocytes Percent Auto 21.7 % (1.7-12.0); Neutrophils Percent Auto 43.4 % (43.0-75.0); Platelet Count 78 10^3/uL (150-450); Red Blood Count 2.24 10^6/uL (4.70-6.10); Red Cell Distribution Width 21.1 % (11.0-15.0); White Blood Count 2.3 10^3/uL (4.0-11.0)
[2023-07-17 16:32] LABS: Anion Gap 11.1; BUN Creatinine Ratio 20.2; Calcium 7.9 mg/dL (8.5-10.1); Carbon Dioxide 28.6 mmol/L (21.0-32.0); Chloride 104 mmol/L (98-107); Estimated GFR (African America 38 (>=60); Estimated GFR (Non-African Ame 31 (>=60); Glucose 180 mg/dL (74-106); Potassium 4.7 mmol/L (3.5-5.1); Sodium 139 mmol/L (136-145); Uric Acid 6.4 mg/dL (3.5-7.2)
== END 2023-07-17 15:31 | disposition home or self-care (01) ==
LOC: LAB 15:31
PROVIDERS: PCP Family Medicine; Visit Provider Nurse Practitioner Family
DX: D46.9 Myelodysplastic syndrome, unspecified (principal)
CPT/HCPCS: 36415; 80048; 84550; 85025

== ENCOUNTER 2023-08-05 10:40 | Outpatient (REF) | payer MEDICARE, SELFPAY ==
[2023-08-05 11:02] LABS: Hematocrit 24.2 % (42.0-54.0); Hemoglobin 7.6 g/dL (14.0-18.0); Mean Corpuscular HGB Conc 31.4 g/dL (29.9-35.2); Mean Corpuscular Hemoglobin 32.5 pg (25.9-34.0); Mean Corpuscular Volume 103.4 fL (80.0-94.0); Mean Platelet Volume 14.3 fL (9.5-13.5); Platelet Count 102 10^3/uL (150-450); Red Blood Count 2.34 10^6/uL (4.70-6.10); Red Cell Distribution Width 21.6 % (11.0-15.0); White Blood Count 2.8 10^3/uL (4.0-11.0)
[2023-08-05 11:04] LABS: Anion Gap 7.9; BUN Creatinine Ratio 17.5; Calcium 8.5 mg/dL (8.5-10.1); Carbon Dioxide 30.3 mmol/L (21.0-32.0); Chloride 103 mmol/L (98-107); Estimated GFR (African America 39 (>=60); Estimated GFR (Non-African Ame 32 (>=60); Glucose 97 mg/dL (74-106); Potassium 4.2 mmol/L (3.5-5.1); Sodium 137 mmol/L (136-145)
[2023-08-05 11:59] LABS: Anisocytosis 3+; Giant Platelets 1+
[2023-08-05 12:10] LABS: Lymphocytes Absolute Manual 1.23 10^3/uL (1.20-3.80); Monocytes Absolute Manual 0.44 10^3/uL (0.30-0.80)
[2023-08-05 12:11] LABS: Band Neutrophils Absolute 0.1 10^3/uL (0.0-0.3); Eosinophils Absolute Manual 0.02 10^3/uL (0.00-0.70)
== END 2023-08-05 10:41 | disposition home or self-care (01) ==
LOC: LAB 10:40
PROVIDERS: PCP Family Medicine; Visit Provider Internal Medicine Hematology & Oncology
DX: D64.9 Anemia, unspecified (principal)
CPT/HCPCS: 36415; 80048; 85027; 86850; 86900; 86901

== ENCOUNTER 2023-08-27 07:26 | Outpatient (RCR) | payer MEDICARE, SELFPAY ==
[2023-07-29 11:11] LABS: Mean Corpuscular HGB Conc 30.5 g/dL (29.9-35.2); Mean Corpuscular Hemoglobin 32.5 pg (25.9-34.0); Mean Corpuscular Volume 106.3 fL (80.0-94.0); Mean Platelet Volume 13.9 fL (9.5-13.5); Platelet Count 114 10^3/uL (150-450); Red Blood Count 1.91 10^6/uL (4.70-6.10); Red Cell Distribution Width 23.6 % (11.0-15.0); White Blood Count 2.4 10^3/uL (4.0-11.0)
[2023-07-29 11:14] LABS: Hematocrit 20.3 % (42.0-54.0); Hemoglobin 6.2 g/dL (14.0-18.0)
[2023-07-29 11:22] LABS: Anion Gap 16.4; BUN Creatinine Ratio 16.7; Calcium 8.2 mg/dL (8.5-10.1); Carbon Dioxide 26.1 mmol/L (21.0-32.0); Chloride 103 mmol/L (98-107); Estimated GFR (African America 34 (>=60); Estimated GFR (Non-African Ame 28 (>=60); Glucose 176 mg/dL (74-106); Potassium 4.5 mmol/L (3.5-5.1); Sodium 141 mmol/L (136-145)
[2023-07-29 11:29] LABS: Band Neutrophils Absolute 0.2 10^3/uL (0.0-0.3); Eosinophils Absolute Manual 0.07 10^3/uL (0.00-0.70); Monocytes Absolute Manual 0.09 10^3/uL (0.30-0.80); Segmented Neut Absolute Manual 0.96 10^3/uL (1.4-6.5)
[2023-07-29 11:30] LABS: Anisocytosis 1+; Macrocytosis 1+; Metamyelocytes Absolute Manual 0.02; Myelocytes Absolute Manual 0.04
[2023-07-30] VITALS (9 sets, daily range): BP systolic 95–115; BP diastolic 42–71; PULSE 50–66; RESP 18; TEMP 36.2–36.5; O2SAT 98–100
[2023-07-30] MEDS: 0.9 % SODIUM CHLORIDE 250 ML 10 ML IV (09:02)
[2023-07-30] MEDS: DIPHENHYDRAMINE HCL 25 MG CAPSULE PO (09:15)
[2023-07-30] MEDS: ACETAMINOPHEN 325 MG TABLET 650 MG PO (09:15)
--- NOTE | 2023-07-30 11:28 | PC.NURSE ---
Patient is here for 2 units or PRBC's, he was premedicated with PO Tylenol and Benadryl. He denies any SOB, Lumbar pain, or s/s of transfusion reaction. He is tolerating this well and vitals have remained stable.
[2023-07-30] MEDS: FUROSEMIDE 20 MG/2 ML VIAL IV (14:30)
--- NOTE | 2023-07-30 14:51 | PC.NURSE ---
Patient completed 2 units of PRBC's, he tolerated both of these well, He had two doses of IV Lasix one after each unit, he refused the first dose, he was given lasix 20mg IVP after his second unit. He denies any complaints. He was discharged home via wheelchair with .
[2023-08-06 09:34] VITALS: BP 109/58; PULSE 71; RESP 20; TEMP 36.5; O2SAT 95
[2023-08-06] MEDS: DIPHENHYDRAMINE HCL 25 MG CAPSULE PO (09:56)
[2023-08-06] MEDS: ACETAMINOPHEN 325 MG TABLET 650 MG PO (09:57)
[2023-08-06 09:59] VITALS: BP 109/58; PULSE 71; RESP 20; TEMP 36.5; O2SAT 95
--- NOTE | 2023-08-06 10:13 | PC.NURSE ---
0934: Pt. to [facility] via w/c for PRBC transfusion. Assisted to recliner. Pt. with continuous O2 @3L n/c. VSS. Denies c/o pain, n/v or dyspnea. #22 gauge IV initiated to right hand on second attempt. Flushes easily with no redness or edema. Pt. tolerated with min. c/o. Warm blanket and pillow provided. Pre meds given as ordered. See SEP. 1003: 1 unit PRBC initiated at this time. Pt. denies needs or c/o.
[2023-08-06 10:20] VITALS: BP 117/52; PULSE 68; RESP 18; TEMP 36.2; O2SAT 98
--- NOTE | 2023-08-06 10:21 | PC.NURSE ---
Pt. tolerating transfusion without c/o. VSS. Denies needs. Sister at chair side.
--- NOTE | 2023-08-06 10:50 | PC.NURSE ---
Patient cont. to deny c/o. Sisters at chairside visiting with patient.
[2023-08-06 11:09] VITALS: BP 113/54; PULSE 52; RESP 16; TEMP 36.3; O2SAT 98
--- NOTE | 2023-08-06 11:09 | PC.NURSE ---
Patient without changes. Denies needs or c/o. VSS.
[2023-08-06 12:18] VITALS: BP 136/62; PULSE 59; RESP 18; TEMP 36.6; O2SAT 97
--- NOTE | 2023-08-06 12:20 | PC.NURSE ---
1200: PRBC completed at this time without s&s of adverse reaction. IV d/c'd, pressure to site. Pt. tolerated without c/o. Remains in chair waiting for arrival of for d/c home. Sisters remain at chairside.
--- NOTE | 2023-08-06 12:48 | PC.NURSE ---
1230: Pt's arrives. Pt. d/c'd amb. to home via w/c with O2 in place.
[2023-08-12 11:45] LABS: Hematocrit 24.4 % (42.0-54.0); Hemoglobin 7.6 g/dL (14.0-18.0); Mean Corpuscular HGB Conc 31.1 g/dL (29.9-35.2); Mean Corpuscular Hemoglobin 32.3 pg (25.9-34.0); Mean Corpuscular Volume 103.8 fL (80.0-94.0); Mean Platelet Volume 14.1 fL (9.5-13.5); Platelet Count 73 10^3/uL (150-450); Red Blood Count 2.35 10^6/uL (4.70-6.10); Red Cell Distribution Width 21.7 % (11.0-15.0); White Blood Count 1.8 10^3/uL (4.0-11.0)
[2023-08-12 11:47] LABS: Anion Gap 11.2; BUN Creatinine Ratio 17.1; Calcium 8.4 mg/dL (8.5-10.1); Carbon Dioxide 33.1 mmol/L (21.0-32.0); Chloride 106 mmol/L (98-107); Estimated GFR (African America 45 (>=60); Estimated GFR (Non-African Ame 37 (>=60); Glucose 135 mg/dL (74-106); Potassium 4.3 mmol/L (3.5-5.1); Sodium 146 mmol/L (136-145)
[2023-08-12 12:27] LABS: Lymphocytes Absolute Manual 0.59 10^3/uL (1.20-3.80); Segmented Neut Absolute Manual 0.84 10^3/uL (1.4-6.5)
[2023-08-12 12:28] LABS: Eosinophils Absolute Manual 0.01 10^3/uL (0.00-0.70); Metamyelocytes Absolute Manual 0.03; Monocytes Absolute Manual 0.25 10^3/uL (0.30-0.80); Myelocytes Absolute Manual 0.03; Poikilocytosis 1+
[2023-08-12 12:29] LABS: Anisocytosis 1+; Ovalocytes 1+
[2023-08-12 13:01] VITALS: BP 106/70; PULSE 52; RESP 16; TEMP 36.4; O2SAT 93
[2023-08-12 13:07] VITALS: BP 106/70; PULSE 52; RESP 16; TEMP 36.4
--- NOTE | 2023-08-12 13:08 | PC.NURSE ---
[address] Machado. Staying for 1 unit of prbc's 1230 Alert oriented no complaints offered. Alert oriented. Lungs clear, heart tones regular. 1300IV attempt x3 perwriter without success. Started per Greg RN #22 rt upper arm on 1st attempt, patient tolerated wel
[2023-08-12] MEDS: DIPHENHYDRAMINE HCL 25 MG CAPSULE PO (13:18)
[2023-08-12] MEDS: ACETAMINOPHEN 325 MG TABLET 650 MG PO (13:18)
[2023-08-12] MEDS: 0.9 % SODIUM CHLORIDE 250 ML IV (13:18)
[2023-08-12 13:20] VITALS: BP 120/64; PULSE 70; RESP 18; TEMP 36.4; O2SAT 93
[2023-08-12 13:23] VITALS: BP 110/56; PULSE 70; RESP 18; TEMP 36.4
--- NOTE | 2023-08-12 13:28 | PC.NURSE ---
tolerating prbc's without any s/s of reaction. rate increased to 150 ml hr.
--- NOTE | 2023-08-12 14:30 | PC.NURSE ---
1315 tolerating transfusion wthout any issues. Sister at chairside.
--- NOTE | 2023-08-12 15:48 | PC.NURSE ---
1530 Prbc's infused, NS flush inititated. Tolerated transfusion without any issues. 1540 IV dc'd catheter intact cottonball and coban applied to site. tolerated well. Released per wheelchair with .
[2023-08-26 11:28] LABS: Mean Corpuscular Hemoglobin 31.8 pg (25.9-34.0); Mean Corpuscular Volume 102.4 fL (80.0-94.0); Mean Platelet Volume 14.3 fL (9.5-13.5); Platelet Count 88 10^3/uL (150-450); Red Blood Count 2.11 10^6/uL (4.70-6.10); Red Cell Distribution Width 23.2 % (11.0-15.0); White Blood Count 2.2 10^3/uL (4.0-11.0)
[2023-08-26 11:34] LABS: Hematocrit 21.6 % (42.0-54.0); Hemoglobin 6.7 g/dL (14.0-18.0)
[2023-08-26 12:04] LABS: Anion Gap 12.3; BUN Creatinine Ratio 14.4; Calcium 8.6 mg/dL (8.5-10.1); Carbon Dioxide 29.8 mmol/L (21.0-32.0); Chloride 104 mmol/L (98-107); Estimated GFR (African America 44 (>=60); Estimated GFR (Non-African Ame 36 (>=60); Glucose 134 mg/dL (74-106); Potassium 4.1 mmol/L (3.5-5.1); Sodium 142 mmol/L (136-145)
[2023-08-26 12:18] LABS: Band Neutrophils Absolute 0.1 10^3/uL (0.0-0.3); Eosinophils Absolute Manual 0.02 10^3/uL (0.00-0.70); Lymphocytes Absolute Manual 0.92 10^3/uL (1.20-3.80); Metamyelocytes Absolute Manual 0.02; Monocytes Absolute Manual 0.13 10^3/uL (0.30-0.80); Segmented Neut Absolute Manual 0.96 10^3/uL (1.4-6.5)
[2023-08-27] MEDS: 0.9 % SODIUM CHLORIDE 250 ML 30 ML IV (08:30)
[2023-08-27 08:33] VITALS: BP 118/73; PULSE 64; RESP 18; TEMP 36.6; O2SAT 98
--- NOTE | 2023-08-27 08:36 | PC.NURSE ---
0810 arrival ambulatory to chair 3. alert oriented x3, respirations with ease, lungs have fine crackles bibasilar posteriorly. heart tones regular at this time. slight pretibial edema noted. at chairside. oxygen at 3 lpm nc.
--- NOTE | 2023-08-27 08:38 | PC.NURSE ---
instructed on s/s of reaction, educated to notify staff of any shortness of breath, chest pain, flank pain, itching etc. verbalize understanding.
[2023-08-27] MEDS: DIPHENHYDRAMINE HCL 25 MG CAPSULE PO (08:43)
[2023-08-27] MEDS: ACETAMINOPHEN 325 MG TABLET 650 MG PO (08:44)
[2023-08-27 09:02] VITALS: BP 118/73; PULSE 64; RESP 18; TEMP 36.6; O2SAT 98
--- NOTE | 2023-08-27 09:10 | PC.NURSE ---
0910 1st unit of prbc's initiated. eats 100% of breakfast, and sister at bedside.
[2023-08-27 09:22] VITALS: BP 120/60; PULSE 50; RESP 18; TEMP 36.4
--- NOTE | 2023-08-27 09:32 | PC.NURSE ---
0922 tolerating transfusion without any s/s of reaction. rate increased to 150. and sister visit with patient
[2023-08-27 10:22] VITALS: PULSE 53; RESP 18; TEMP 36.5; O2SAT 96
--- NOTE | 2023-08-27 10:31 | PC.NURSE ---
Tolerating transfusion without any problems, visits with family, infusing at 150 ml hr.
[2023-08-27 11:22] VITALS: BP 132/68; PULSE 60; RESP 18; TEMP 36; O2SAT 98
--- NOTE | 2023-08-27 11:34 | PC.NURSE ---
1135 prbc's infused ns flush initiated. Eating lunch. Respirations with ease, lungs have very fine crackles rt base, otherwise clear posteriory heart tones regular. no shortness of breath noted.
--- NOTE | 2023-08-27 12:24 | PC.NURSE ---
1215 ns flush completed, iv site dc'd, cottonball and coban applied to iv site. ambulated to bathroom. Released per wheelchair in care of and sister. 1
== END 2023-08-27 23:59 | disposition home or self-care (01) ==
LOC: INF 07:26
PROVIDERS: PCP Family Medicine; Visit Provider Internal Medicine Hematology & Oncology
DX: D46.9 Myelodysplastic syndrome, unspecified (principal)
CPT/HCPCS: 36415; 36430; 80048; 85007; 85027; 86850; 86900; 86901; 96374; G0463; J1940; P9016

== ENCOUNTER 2023-09-16 12:10 | Outpatient (OUT) | payer MEDICARE, SELFPAY | END 2023-09-16 12:11 | disposition home or self-care (01) | LOC: LAB 12:12 | PROVIDERS: PCP Family Medicine; Visit Provider Internal Medicine Interventional Cardiology | DX: I50.41 Acute combined systolic (congestive) and diastolic (congestive) heart failure (principal) | CPT/HCPCS: 36415; 83880 ==

== ENCOUNTER 2023-09-23 11:35 | Outpatient (OUT) | payer MEDICARE, SELFPAY ==
[2023-09-23 12:16] LABS: Anion Gap 17.2; Calcium 9.7 mg/dL (8.5-10.1); Carbon Dioxide 28.1 mmol/L (21.0-32.0); Chloride 100 mmol/L (98-107); Estimated GFR (African America 20 (>=60); Estimated GFR (Non-African Ame 16 (>=60); Glucose 94 mg/dL (74-106); Potassium 5.3 mmol/L (3.5-5.1); Sodium 140 mmol/L (136-145)
== END 2023-09-23 11:36 | disposition home or self-care (01) ==
LOC: LAB 11:36
PROVIDERS: PCP Family Medicine; Visit Provider Internal Medicine Interventional Cardiology
DX: I50.41 Acute combined systolic (congestive) and diastolic (congestive) heart failure (principal)
CPT/HCPCS: 36415; 80048; 83880

== ENCOUNTER 2023-09-24 07:24 | Outpatient (RCR) | payer MEDICARE, SELFPAY ==
[2023-09-02 12:50] LABS: Mean Corpuscular HGB Conc 31.1 g/dL (29.9-35.2); Mean Corpuscular Hemoglobin 31.7 pg (25.9-34.0); Platelet Count 86 10^3/uL (150-450); Red Blood Count 2.02 10^6/uL (4.70-6.10); White Blood Count 3.1 10^3/uL (4.0-11.0)
[2023-09-02 12:58] LABS: Hematocrit 20.6 % (42.0-54.0); Hemoglobin 6.4 g/dL (14.0-18.0)
[2023-09-02 13:14] LABS: Band Neutrophils Absolute 0.1 10^3/uL (0.0-0.3); Basophils Abs Manual 0.03 10^3/uL (0.00-0.10); Lymphocytes Absolute Manual 0.77 10^3/uL (1.20-3.80); Monocytes Absolute Manual 0.52 10^3/uL (0.30-0.80); Segmented Neut Absolute Manual 1.64 10^3/uL (1.4-6.5)
[2023-09-02 13:15] LABS: Myelocytes Absolute Manual 0.03
[2023-09-03] VITALS (10 sets, daily range): BP systolic 114–128; BP diastolic 55–75; PULSE 62–76; RESP 16–18; TEMP 36.2–37.1; O2SAT 93–96
[2023-09-03] MEDS: DIPHENHYDRAMINE HCL 25 MG CAPSULE PO (08:45)
[2023-09-03] MEDS: ACETAMINOPHEN 325 MG TABLET 650 MG PO (08:45)
[2023-09-03] MEDS: 0.9 % SODIUM CHLORIDE 250 ML 10 ML IV (08:46)
--- NOTE | 2023-09-03 09:00 | PC.NURSE ---
0830: Pt. to [facility] via w/c accompanied by . Pt. with continuous O2 at 3L n/c. Assisted pt to recliner. VSS. O2 connected to wall unit at 3L n/c. #22 gauge IV initiated to right upper arm on first attempt without difficulty. Flushes easily without redness or edema. Pt. tolerated without c/o. 0850: First unit PRBC initiated at this time. Pt. given banana and chocolate boost. [place] and pillow provided.
--- NOTE | 2023-09-03 09:16 | PC.NURSE ---
Pt. tolerating infusion without s&s of adverse reaction. VSS. Sister at chairside.
--- NOTE | 2023-09-03 09:59 | PC.NURSE ---
Pt. without change. IV site remains clear. VSS. Denies c/o or needs.
--- NOTE | 2023-09-03 10:32 | PC.NURSE ---
1011: First unit PRBC completed without s&s of transfusion reaction. VSS. IV site remains clear. 1027: Second unit PRBC initiated at this time. Drinking water and visiting with and sister.
--- NOTE | 2023-09-03 10:54 | PC.NURSE ---
Pt. tolerating infusion without c/o. VSS. Denies needs.
--- NOTE | 2023-09-03 11:25 | PC.NURSE ---
Cont. to tolerate infusion without c/o. VSS.
[2023-09-03] MEDS: FUROSEMIDE 20 MG/2 ML VIAL IV (11:56)
--- NOTE | 2023-09-03 11:59 | PC.NURSE ---
1011: (late entry) Pt. refuses lasix after first unit PRBC. Requests to receive lasix after second unit only. States too hard to go to the bathroom.
--- NOTE | 2023-09-03 12:02 | PC.NURSE ---
1201:Second unit PRBC completed at this time. Line flushed with saline. Medicated with Lasix 20mg ivp as ordered. Pt. tolerated infusion without s&s of transfusion reaction. Up to bathroom with assist. 1220: IV d/c'd, pressure to site. Pt. cont. to deny c/o. 1225: D/c'd via w/c to car and home with .
[2023-09-09 11:13] LABS: Hemoglobin 7.3 g/dL (14.0-18.0); Mean Corpuscular HGB Conc 31.3 g/dL (29.9-35.2); Mean Corpuscular Hemoglobin 31.3 pg (25.9-34.0); Mean Platelet Volume 14.1 fL (9.5-13.5); Platelet Count 91 10^3/uL (150-450); Red Blood Count 2.33 10^6/uL (4.70-6.10); Red Cell Distribution Width 22.7 % (11.0-15.0); White Blood Count 10.7 10^3/uL (4.0-11.0)
[2023-09-09 11:24] LABS: Hematocrit 23.3 % (42.0-54.0)
[2023-09-09 11:31] LABS: Anion Gap 15.9; BUN Creatinine Ratio 14.3; Calcium 8.8 mg/dL (8.5-10.1); Carbon Dioxide 27.4 mmol/L (21.0-32.0); Chloride 104 mmol/L (98-107); Estimated GFR (African America 35 (>=60); Estimated GFR (Non-African Ame 29 (>=60); Glucose 178 mg/dL (74-106); Potassium 4.3 mmol/L (3.5-5.1); Sodium 143 mmol/L (136-145)
[2023-09-09 11:41] LABS: Lymphocytes Absolute Manual 0.64 10^3/uL (1.20-3.80); Segmented Neut Absolute Manual 7.49 10^3/uL (1.4-6.5)
[2023-09-09 11:42] LABS: Anisocytosis 3+; Band Neutrophils Absolute 0.7 10^3/uL (0.0-0.3); Macrocytosis 2+; Metamyelocytes Absolute Manual 0.21
--- NOTE | 2023-09-09 12:21 | XR_ITS ---
The [address] [address] Patient Name: SANDIP BROUSSARD MRN: [id number] date: 1940 Sex: M Assigned Patient Location: [facility] Current Patient Location: [facility] Accession/Order Number: [id number] Exam Date: 09/09/2023 12:28 Report Date: 09/09/2023 12:56 At the request of: MATHEUS KAPOOR Procedure: XR chest 2V EXAM: XR chest 2V HISTORY: Myelodysplastic Syndrome D46.9 COMPARISON: Chest radiograph dated 07/08/2023. TECHNIQUE: PA and lateral views of the chest performed. FINDINGS: The trachea is unremarkable. Stable mild enlargement of the cardiac silhouette which is partially obscured. There is a stent projecting over the cardiac silhouette on the lateral projection. Stable mild atheromatous calcification thoracic and abdominal aorta. Stable prominence of the main pulmonary arteries which can be associated with pulmonary artery hypertension. There are new small bilateral pleural effusions with associated compressive atelectasis. Correlate with clinical findings to exclude underlying infiltrate. There is no pulmonary vascular congestion. There is no pneumothorax. The bony structures are osteopenic. There are syndesmophytes along the spine. XR/XR chest 2V IMPRESSION: New small bilateral pleural effusions with associated compressive atelectasis. Correlate with clinical findings to exclude underlying infiltrate. There is no pulmonary vascular congestion. Stable mild prominence of the cardiac silhouette. Stable mild prominence of the central pulmonary arteries which can be associated with pulmonary artery hypertension. Stable mild atheromatous calcification thoracic and abdominal aorta. Electronically authenticated by: MARKEL PAREKH Date: 09/09/2023 12:56
--- NOTE | 2023-09-09 12:48 | PC.NURSE ---
1215 oncology office visit completed, To xray per wheelchair for chest xray 1245 returned to [facility]is department to chair 4. Alert oriented. color pallor skin warm and dry. Oxygen @3 lpm per nc spo2 90%. lungs clear but diminished. heart tones strong and regular. Instructed on s/s of reaction verbalizes understanding
[2023-09-09 13:05] VITALS: BP 115/70; PULSE 69; RESP 18; TEMP 36.8; O2SAT 90
[2023-09-09] MEDS: ACETAMINOPHEN 325 MG TABLET 650 MG PO (13:07)
[2023-09-09] MEDS: DIPHENHYDRAMINE HCL 25 MG CAPSULE PO (13:08)
--- NOTE | 2023-09-09 13:08 | PC.NURSE ---
1305 prbc's initiatedat 100 ml hr via pump. lunch ordered
--- NOTE | 2023-09-09 13:18 | PC.NURSE ---
Tolerating transfusion without any signs or symptoms of reaction.
[2023-09-09 13:21] VITALS: RESP 18; TEMP 36.3; O2SAT 93
[2023-09-09] MEDS: 0.9 % SODIUM CHLORIDE 250 ML 10 ML IV (14:13)
--- NOTE | 2023-09-09 15:21 | PC.NURSE ---
1440 PRBC's infused, ns flush line. 1445 IV dc'd catheter intact, site clear. 1455 Released per wheelchair to private auto
[2023-09-16 11:59] LABS: Hematocrit 25.4 % (42.0-54.0); Hemoglobin 7.8 g/dL (14.0-18.0); Mean Corpuscular HGB Conc 30.7 g/dL (29.9-35.2); Mean Corpuscular Hemoglobin 30.8 pg (25.9-34.0); Mean Corpuscular Volume 100.4 fL (80.0-94.0); Mean Platelet Volume 14.1 fL (9.5-13.5); Platelet Count 129 10^3/uL (150-450); Red Blood Count 2.53 10^6/uL (4.70-6.10); Red Cell Distribution Width 21.5 % (11.0-15.0)
[2023-09-16 12:29] LABS: Lymphocytes Absolute Manual 1.32 10^3/uL (1.20-3.80); Segmented Neut Absolute Manual 1.35 10^3/uL (1.4-6.5)
[2023-09-23 11:53] LABS: Basophils Percent Auto 0.2 % (0.2-2.0); Hemoglobin 7.5 g/dL (14.0-18.0); Immature Granulocytes Abs Auto 0.08 10^3/uL (0.00-0.03); Immature Granulocytes Pct Auto 1.7 % (0.0-0.5); Lymphocytes Absolute Auto 0.8 10^3/uL (1.2-3.8); Lymphocytes Percent Auto 16.8 % (20.5-60.0); Mean Corpuscular HGB Conc 31.5 g/dL (29.9-35.2); Mean Corpuscular Hemoglobin 31.3 pg (25.9-34.0); Mean Corpuscular Volume 99.2 fL (80.0-94.0); Mean Platelet Volume 15.1 fL (9.5-13.5); Monocytes Absolute Auto 0.8 10^3/uL (0.3-0.8); Monocytes Percent Auto 17.3 % (1.7-12.0); Platelet Count 82 10^3/uL (150-450); Red Cell Distribution Width 22.2 % (11.0-15.0); White Blood Count 4.8 10^3/uL (4.0-11.0)
[2023-09-23 12:02] LABS: Hematocrit 23.8 % (42.0-54.0)
[2023-09-24 09:21] VITALS: BP 88/50; PULSE 59; RESP 18; TEMP 36.6
[2023-09-24] MEDS: ACETAMINOPHEN 325 MG TABLET 650 MG PO (09:29)
[2023-09-24] MEDS: DIPHENHYDRAMINE HCL 25 MG CAPSULE PO (09:29)
[2023-09-24 09:30] VITALS: BP 100/60; PULSE 60; RESP 18; TEMP 36.4; O2SAT 95
[2023-09-24] MEDS: 0.9 % SODIUM CHLORIDE 250 ML 30 ML IV (09:31)
--- NOTE | 2023-09-24 09:33 | PC.NURSE ---
0910 Arrival per wheelchair, transferred to chair 3. alert oriented. lungs clear to auscultation. Instructed on s/s of reaction verbalizes understanding, leaves. sister visits with patient. 0905 # 22 iv initiated rt upper arm on 1st attempt. tolerated well. 0930 prbc initiated at 120 ml hr.
--- NOTE | 2023-09-24 09:58 | PC.NURSE ---
0930 Tolerating prbc's without anys/s of reaction. sister at chairside. rate increased to 150 ml hr.
[2023-09-24 10:15] VITALS: BP 106/70; PULSE 60; RESP 18; O2SAT 2
--- NOTE | 2023-09-24 10:51 | PC.NURSE ---
1015 tolerating prbc's without any issues, and sister with patient
[2023-09-24 12:01] VITALS: BP 108/80; PULSE 62; RESP 18; TEMP 36.3; O2SAT 93
== END 2023-09-25 23:59 | disposition home or self-care (01) ==
LOC: INF 07:24
PROVIDERS: PCP Family Medicine; Visit Provider Internal Medicine Hematology & Oncology
DX: I50.41 Acute combined systolic (congestive) and diastolic (congestive) heart failure (principal); D46.9 Myelodysplastic syndrome, unspecified
CPT/HCPCS: 36415; 36430; 71046; 80048; 83880; 85007; 85025; 85027; 86850; 86900; 86901; 96374; 96375; G0463; P9016

== ENCOUNTER 2023-09-29 12:45 | Outpatient (OUT) | payer MEDICARE, SELFPAY ==
[2023-09-29 13:36] LABS: Anion Gap 13.4; BUN Creatinine Ratio 24.4; Carbon Dioxide 26.9 mmol/L (21.0-32.0); Chloride 104 mmol/L (98-107); Estimated GFR (African America 27 (>=60); Estimated GFR (Non-African Ame 22 (>=60); Glucose 180 mg/dL (74-106); Sodium 138 mmol/L (136-145)
[2023-09-29 13:43] LABS: Potassium 6.3 mmol/L (3.5-5.1)
== END 2023-09-29 12:46 | disposition home or self-care (01) ==
LOC: LAB 12:50
PROVIDERS: PCP Family Medicine; Visit Provider Internal Medicine Interventional Cardiology
DX: I50.41 Acute combined systolic (congestive) and diastolic (congestive) heart failure (principal)
CPT/HCPCS: 36415; 80048; 83880

== ENCOUNTER 2023-09-29 12:53 | Outpatient (OUT) | payer MEDICARE, SELFPAY ==
[2023-09-29 13:21] LABS: Basophils Percent Auto 0.3 % (0.2-2.0); Hematocrit 24.7 % (42.0-54.0); Hemoglobin 7.8 g/dL (14.0-18.0); Immature Granulocytes Abs Auto 0.11 10^3/uL (0.00-0.03); Immature Granulocytes Pct Auto 3.6 % (0.0-0.5); Lymphocytes Absolute Auto 0.6 10^3/uL (1.2-3.8); Lymphocytes Percent Auto 20.7 % (20.5-60.0); Mean Corpuscular HGB Conc 31.6 g/dL (29.9-35.2); Mean Corpuscular Hemoglobin 31.3 pg (25.9-34.0); Mean Corpuscular Volume 99.2 fL (80.0-94.0); Monocytes Absolute Auto 0.7 10^3/uL (0.3-0.8); Monocytes Percent Auto 23.6 % (1.7-12.0); Neutrophils Absolute Auto 1.6 10^3/uL (1.4-6.5); Neutrophils Percent Auto 51.8 % (43.0-75.0); Platelet Count 80 10^3/uL (150-450); Red Blood Count 2.49 10^6/uL (4.70-6.10); Red Cell Distribution Width 21.4 % (11.0-15.0); White Blood Count 3.1 10^3/uL (4.0-11.0)
== END 2023-09-29 12:54 | disposition home or self-care (01) ==
LOC: LAB 12:54
PROVIDERS: PCP Family Medicine; Visit Provider Internal Medicine Hematology & Oncology
DX: D46.9 Myelodysplastic syndrome, unspecified (principal)
CPT/HCPCS: 36415; 85025; 86850; 86900; 86901

== ENCOUNTER 2023-09-29 17:08 | Emergency (ER) | payer MEDICARE, SELFPAY ==
[2023-09-29 17:14] VITALS: BP 118/62; PULSE 69; RESP 18; TEMP 36.9; O2SAT 100; BMI 30.8
--- NOTE | 2023-09-29 17:19 | ECG_ITS ---
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
--- NOTE | 2023-09-29 17:32 | ED.GENADUL1 ---
HPI - General Adult General Chief complaint: Recheck/Abnormal Lab/Rx Stated complaint: Shortness of Breath, Needs Oxygen Time Seen by Provider: 09/29/23 17:18 Source: patient Mode of arrival: Wheelchair History of Present Illness HPI narrative: This is a 82-year-old patient here because he was told to go to the hospital from his doctor's office today he just saw his outsole cutter machine. He had some outpatient lab and was found that his potassium was elevated at 6.3. This patient has a longstanding history of myelodysplastic syndrome, stage IV chronic renal failure, GI bleed, congestive heart failure with EF 20%, elevation liver function testing,. They have been adjusting his blood pressure medications to manage all these medical conditions. He was taking spironolactone and taking supplemental potassium and taking extra bananas here in the last several weeks. He says he feels great he thought he was going to go home after seeing the outsole cutter machine but they told him to come to the hospital. Specifically he has not had fever aches pains chills, no shortness of breath no chest discomfort, no swelling of his legs and has a said he says he feels pretty darn good. In fact his blood pressure and vital signs are excellent. Twelve-lead EKG was done on his arrival here and it does show atrial fibrillation with a controlled ventricular response. QRS is no different than his EKG dated been done on 07/08/2023 he does have some widening of his QRS. Related Data Home Medications Medication Instructions Recorded Confirmed aspirin 81 mg tablet,delayed 81 mg PO QPM 02/03/23 09/29/23 release dapagliflozin propanediol 10 mg 10 mg PO DAILY 02/03/23 09/29/23 tablet (Farxiga) omeprazole 40 mg capsule,delayed 40 mg PO DAILY 02/03/23 09/29/23 release spironolactone 25 mg tablet 25 mg PO DAILY 02/03/23 09/29/23 (Aldactone) terazosin 5 mg capsule 5 mg PO QPM 02/03/23 09/29/23 atorvastatin 20 mg tablet 20 mg PO QDAY 04/23/23 09/29/23 blood sugar diagnostic ([facility] 04/23/23 07/09/23 Ultra Test strips) cholecalciferol (vitamin D3) 25 25 mcg PO DAILY 07/09/23 09/29/23 mcg (1,000 unit) tablet (Vitamin D3) cyclobenzaprine 5 mg tablet 5 mg PO BID PRN muscle spasm 07/09/23 09/29/23 glipizide 5 mg tablet, extended 5 mg PO QPM 07/09/23 09/29/23 release 24 hr (Glucotrol XL) metoprolol succinate 25 mg 25 mg PO DAILY 07/09/23 09/29/23 tablet,extended release 24 hr (Toprol XL) Previous Rx's Medication Instructions Recorded bumetanide 1 mg tablet 1 mg PO QAM #0 tabs 07/10/23 febuxostat 40 mg tablet 40 mg PO DAILY 30 days #30 tabs 07/10/23 lisinopril 2.5 mg tablet 2.5 mg PO DAILY 30 days #30 tabs 07/10/23 Allergies Allergy/AdvReac Type Severity Reaction Status Date / Time bee venom protein (honey bee) Allergy Severe Verified 02/03/23 11:28 coreg Allergy Severe Uncoded 02/03/23 11:34 [facility] Medical History (Updated 09/29/23 @ 18:40 by Abhinav Park MD) CHF (congestive heart failure) ?I50.9 - Heart failure, unspecified (ICD-10) Myelodysplastic disease ?C94.6 - Myelodysplastic disease, not elsewhere classified (ICD-10) Anemia ?D64.9 - Anemia, unspecified (ICD-10) Hyperlipemia ?E78.5 - Hyperlipidemia, unspecified (ICD-10) Diabetes ?E11.9 - Type 2 diabetes mellitus without complications (ICD-10) Transfusion of blood during current hospitalisation Hypertension ?I10 - Essential (primary) hypertension (ICD-10) 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, valve unspecified (ICD-10) Anemia ?D64.9 - Anemia, unspecified (ICD-10) Surgical History History of heart artery stent ?Z95.5 - Presence of coronary angioplasty implant and graft (ICD-10) Family History Father Family history of stroke Mother Family history of stroke Family history of hypertension Family history of CHF (congestive heart failure) Brother Family history of diabetes mellitus Sister Family history of cancer Social History Within the past year, how often did you have a drink containing alcohol: never Score interpretation: A score less than 4 is consistent with normal alcohol consumption. Smoking status: Former smoker Non-prescribed substance use: denies use Previous occupational history: Retired - [employer] Highest level of school completed/degree received: high school graduate Are you now , , , , never or living with a partner: In a typical week, how many times do you talk on the telephone with family, friends, or neighbors: 3 or more times per week How often do you get together with friends or relatives: 3 or more times per week How often do you attend temple or taoist services: 1-3 times per year Little interest or pleasure in doing things: not at all Feeling down, depressed, or hopeless: not at all Feel stressed/tense/nervous/anxious/difficulty sleeping: not at all Life stressors: unknown source of stress Do you think of yourself as: straight/heterosexual Gender Identity: male Exam Narrative Exam Narrative: Awake alert very pleasant good historian no discomfort vital signs stable. On chest examination his lungs are completely clear with no wheeze rales or rhonchi. Heart sounds I do not hear a murmur. Abdomen: Is obese but does not have any tenderness. I cannot detect any ascites. His legs are not warm red or swollen. He has no pitting edema at all. Skin is warm and dry with no cyanosis or clamminess. Neurological he is intact mentation is excellent cranial nerves normal and he has no focal motor deficits. Constitutional Vital Signs, click to edit/add: Last Vital Signs Temp 98.5 F 09/29/23 17:14 Pulse 60 09/29/23 18:21 Resp 20 09/29/23 18:21 BP 118/62 09/29/23 17:14 Pulse Ox 100 09/29/23 18:21 O2 Del Method Nasal Cannula 09/29/23 18:21 O2 Flow Rate 3 09/29/23 18:21 Course Vital Signs Vital signs: Vital Signs Temperature 98.5 F 09/29/23 17:14 Pulse Rate 69 09/29/23 17:14 Respiratory Rate 18 09/29/23 17:14 Blood Pressure 118/62 09/29/23 17:14 Pulse Oximetry 100 09/29/23 17:14 Oxygen Delivery Method Nasal Cannula 09/29/23 17:14 Oxygen Delivery Flow Rate 3 09/29/23 17:14 Temperature 98.5 F 09/29/23 17:14 Pulse Rate 60 09/29/23 18:21 Respiratory Rate 20 09/29/23 18:21 Blood Pressure 118/62 09/29/23 17:14 Pulse Oximetry 100 09/29/23 18:21 Oxygen Delivery Method Nasal Cannula 09/29/23 18:21 Oxygen Delivery Flow Rate 3 09/29/23 18:21 Medical Decision Making MDM Narrative Medical decision making narrative: I did review his outpatient lab today and his BUN and creatinine are actually improving. His hemoglobin is improving, his potassium is slightly elevated at 6.3. Discharge Plan Discharge Chief Complaint: Recheck/Abnormal Lab/Rx Clinical Impression: Acute hyperkalemia Patient Disposition: Home, Self-Care Time of Disposition Decision: 18:39 Prescriptions / Home Meds: No Action dapagliflozin propanediol [Farxiga] 10 mg tablet 10 mg PO DAILY omeprazole 40 mg capsule,delayed release(DR/EC) 40 mg PO DAILY spironolactone [Aldactone] 25 mg tablet 25 mg PO DAILY terazosin 5 mg capsule 5 mg PO QPM aspirin 81 mg tablet,delayed release (DR/EC) 81 mg PO QPM atorvastatin 20 mg tablet 20 mg PO QDAY (DME) OneTouch Ultra Test Strip MISCELLANEOUS glipizide [Glucotrol XL] 5 mg tablet extended release 24hr 5 mg PO QPM metoprolol succinate [Toprol XL] 25 mg tablet extended release 24 hr 25 mg PO DAILY cyclobenzaprine 5 mg tablet 5 mg PO BID PRN (Reason: muscle spasm) cholecalciferol (vitamin D3) [Vitamin D3] 25 mcg (1,000 unit) tablet 25 mcg PO DAILY lisinopril 2.5 mg tablet 2.5 mg PO DAILY 30 Days Qty: 30 0RF febuxostat 40 mg Tablet 40 mg PO DAILY 30 Days Qty: 30 0RF bumetanide 1 mg tablet 1 mg PO QAM Qty: 0 0RF Additional Instructions: Repeat your lab test tomorrow, stop your spironolactone. Stop your supplemental potassium. Referrals: JACQUELIN HERNANDES [Primary Care Provider] - 1 week Stand Alone Forms: Portal Instructions
--- NOTE | 2023-09-29 17:45 | XR_ITS ---
The [address] [address] Patient Name: SANDIP BROUSSARD MRN: [id number] date: 1940 Sex: M Assigned Patient Location: ER Current Patient Location: ED.MAIN Accession/Order Number: [id number] Exam Date: 09/29/2023 17:55 Report Date: 09/29/2023 18:43 At the request of: JORGE FUNES Procedure: XR chest 1V EXAM: XR chest 1V TECHNIQUE: Single AP view chest HISTORY: SOB COMPARISON: 07/08/2023 FINDINGS: The heart is enlarged. Mild blunting of left costophrenic angle suggesting a small left-sided effusion. No acute consolidation. Osseous structures are intact. XR/XR chest 1V IMPRESSION: Cardiomegaly. Question small left-sided effusion. Electronically authenticated by: STACEY BATES Date: 09/29/2023 18:43
[2023-09-29] MEDS: ALBUTEROL SULFATE 2.5 MG/3 ML VIAL NEB IH (18:18)
[2023-09-29 18:21] VITALS: PULSE 60; RESP 20; O2SAT 100
[2023-09-29 18:31] VITALS: PULSE 55; RESP 20; O2SAT 100
[2023-09-29] MEDS: BUMETANIDE 1 MG/4 ML VIAL IVP (18:46)
== END 2023-09-29 18:59 | disposition home or self-care (01) ==
PROVIDERS: Emergency Provider Emergency Medicine Emergency Medical Services; PCP Family Medicine
DX: I50.41 Acute combined systolic (congestive) and diastolic (congestive) heart failure (principal); D46.9 Myelodysplastic syndrome, unspecified; E87.5 Hyperkalemia; Z79.82 Long term (current) use of aspirin; Z79.899 Other long term (current) drug therapy; Z87.891 Personal history of nicotine dependence; E66.9 Obesity, unspecified; Z68.30 Body mass index [BMI] 30.0-30.9, adult
CPT/HCPCS: 36415; 71045; 80048; 83880; 85025; 86850; 86900; 86901; 93005; 94640; 96374; 99285

== ENCOUNTER 2023-09-30 12:08 | Outpatient (OUT) | payer MEDICARE, SELFPAY ==
[2023-09-30 12:51] LABS: Anion Gap 14.1; Carbon Dioxide 27.3 mmol/L (21.0-32.0); Chloride 104 mmol/L (98-107); Estimated GFR (African America 29 (>=60); Estimated GFR (Non-African Ame 24 (>=60); Glucose 192 mg/dL (74-106); Potassium 5.4 mmol/L (3.5-5.1); Sodium 140 mmol/L (136-145)
== END 2023-09-30 12:09 | disposition home or self-care (01) ==
LOC: LAB 12:11
PROVIDERS: PCP Family Medicine; Visit Provider Emergency Medicine Emergency Medical Services
DX: N18.9 Chronic kidney disease, unspecified (principal)
CPT/HCPCS: 36415; 80048

== ENCOUNTER 2023-09-30 20:24 | Emergency (ER) | payer MEDICARE, SELFPAY ==
[2023-09-30 20:36] VITALS: BP 122/74; PULSE 76; RESP 14; TEMP 36.8; O2SAT 99; BMI 32.9
--- NOTE | 2023-09-30 20:54 | ED_ITS ---
HPI - Epistaxis General Chief Complaint: Epistaxis Stated Complaint: Epitaxis Time Seen by Provider: 09/30/23 20:43 Source: patient and family Mode of arrival: Wheelchair Limitations: no limitations Limitations comment: stage IV renal disease. Seen here yesterday for hyperkalemia. Today right ear pain and bleeding left nostril. No headache or dizziness. Presents because of the nose bleed. Takes ASA qd. No injury. Does wear supplemental 02 states due to underlying heart disease History of Present Illness Location: Yes left naris Related Data Home Medications Medication Instructions Recorded Confirmed aspirin 81 mg tablet,delayed 81 mg PO QPM 02/03/23 09/30/23 release dapagliflozin propanediol 10 mg 10 mg PO DAILY 02/03/23 09/30/23 tablet (Farxiga) omeprazole 40 mg capsule,delayed 40 mg PO DAILY 02/03/23 09/30/23 release terazosin 5 mg capsule 5 mg PO QPM 02/03/23 09/30/23 atorvastatin 20 mg tablet 20 mg PO QDAY 04/23/23 09/30/23 blood sugar diagnostic ([facility] 04/23/23 07/09/23 Ultra Test strips) cholecalciferol (vitamin D3) 25 25 mcg PO DAILY 07/09/23 09/30/23 mcg (1,000 unit) tablet (Vitamin D3) cyclobenzaprine 5 mg tablet 5 mg PO BID PRN muscle spasm 07/09/23 09/30/23 glipizide 5 mg tablet, extended 5 mg PO QPM 07/09/23 09/30/23 release 24 hr (Glucotrol XL) metoprolol succinate 25 mg 25 mg PO DAILY 07/09/23 09/30/23 tablet,extended release 24 hr (Toprol XL) Previous Rx's Medication Instructions Recorded bumetanide 1 mg tablet 1 mg PO QAM #0 tabs 07/10/23 febuxostat 40 mg tablet 40 mg PO DAILY 30 days #30 tabs 07/10/23 lisinopril 2.5 mg tablet 2.5 mg PO DAILY 30 days #30 tabs 07/10/23 Allergies Allergy/AdvReac Type Severity Reaction Status Date / Time bee venom protein (honey bee) Allergy Severe Verified 09/30/23 20:36 coreg Allergy Severe Uncoded 09/30/23 20:36 Review of Systems ROS Status of ROS 10 or more systems reviewed and unremark able except as noted in history and below [facility] Medical History (Updated 09/30/23 @ 22:40 by Raj Ugalde MD) CHF (congestive heart failure) ?I50.9 - Heart failure, unspecified (ICD-10) Myelodysplastic disease ?C94.6 - Myelodysplastic disease, not elsewhere classified (ICD-10) Anemia ?D64.9 - Anemia, unspecified (ICD-10) Hyperlipemia ?E78.5 - Hyperlipidemia, unspecified (ICD-10) Diabetes ?E11.9 - Type 2 diabetes mellitus without complications (ICD-10) Transfusion of blood during current hospitalisation Hypertension ?I10 - Essential (primary) hypertension (ICD-10) 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, valve unspecified (ICD-10) Anemia ?D64.9 - Anemia, unspecified (ICD-10) Surgical History History of heart artery stent ?Z95.5 - Presence of coronary angioplasty implant and graft (ICD-10) Family History Father Family history of stroke Mother Family history of stroke Family history of hypertension Family history of CHF (congestive heart failure) Brother Family history of diabetes mellitus Sister Family history of cancer Social History Within the past year, how often did you have a drink containing alcohol: never Score interpretation: A score less than 4 is consistent with normal alcohol consumption. 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 level of school completed/degree received: high school graduate Are you now , , , , never or living with a partner: In a typical week, how many times do you talk on the telephone with family, friends, or neighbors: 3 or more times per week How often do you get together with friends or relatives: 3 or more times per week How often do you attend nondenominational or mormon services: 1-3 times per year Little interest or pleasure in doing things: not at all Feeling down, depressed, or hopeless: not at all Feel stressed/tense/nervous/anxious/difficulty sleeping: not at all Life stressors: unknown source of stress Do you think of yourself as: straight/heterosexual Gender Identity: male Exam Constitutional Vital Signs, click to edit/add: Last Vital Signs Temp 98.3 F 09/30/23 20:36 Pulse 60 09/30/23 21:54 Resp 14 09/30/23 20:36 BP 130/88 09/30/23 21:54 Pulse Ox 100 09/30/23 21:54 O2 Del Method Room Air 09/30/23 20:36 O2 Flow Rate 3 09/30/23 21:54 Common normals: no apparent distress, average body habitus, oriented x3, no limitations, healthy appearing, alert and well nourished HENMT Common normals: normocephalic and head/scalp atraumatic Other: small amount of blood left septal wall right TM red and retracted Eye Common normals: EOMs intact bilaterally and conjunctivae normal Respiratory Common normals: normal respiratory effort, no retractions and no use of accessory muscles Cardio Common normals: regular rate, regular rhythm, S1 normal heart sound and S2 normal heart sound Extremity Common normals: normal to inspection and full ROM Neuro Common normals: oriented x3, CN's II-XII intact bilaterally, moves all extremities and no focal motor deficits Psych Appearance: grossly normal Course Vital Signs Vital signs: Vital Signs Temperature 98.3 F 09/30/23 20:36 Pulse Rate 76 09/30/23 20:36 Respiratory Rate 14 09/30/23 20:36 Blood Pressure 122/74 09/30/23 20:36 Pulse Oximetry 99 09/30/23 20:36 Oxygen Delivery Method Room Air 09/30/23 20:36 Temperature 98.3 F 09/30/23 20:36 Pulse Rate 60 09/30/23 21:54 Respiratory Rate 14 09/30/23 20:36 Blood Pressure 130/88 09/30/23 21:54 Pulse Oximetry 100 09/30/23 21:54 Oxygen Delivery Method Room Air 09/30/23 20:36 Oxygen Delivery Flow Rate 3 09/30/23 21:54 MDM - Epistaxis MDM Narrative Medical decision making narrative: presents with nose bleed left nostril. bleeding controlled as above. Also found to have right otitis media. given dose of Amoxicillin and discharged home labs reveal known CKD and anemia. seen here 2 days ago for potassium 6.4. Potassium 5.1 now. Lab Data Labs: Lab Results 09/30/23 Range/Units 21:05 WBC 3.9 L (4.0-11.0) 10^3/uL RBC 2.48 L (4.70-6.10) 10^6/uL Hgb 7.6 L (14.0-18.0) g/dL Hct 24.8 L (42.0-54.0) % MCV 100.0 H (80.0-94.0) fL MCH 30.6 (25.9-34.0) pg MCHC 30.6 (29.9-35.2) g/dL RDW 21.7 H (11.0-15.0) % Plt Count 84 L (150-450) 10^3/uL MPV 15.4 H (9.5-13.5) fL Neut % (Auto) 51.0 (43.0-75.0) % Lymph % (Auto) 18.8 L (20.5-60.0) % [place] % (Auto) 26.4 H (1.7-12.0) % Eos % (Auto) 0.0 L (0.9-7.0) % Baso % (Auto) 0.5 (0.2-2.0) % Neut # (Auto) 2.0 (1.4-6.5) 10^3/uL Lymph # (Auto) 0.7 L (1.2-3.8) 10^3/uL [place] # (Auto) 1.0 H (0.3-0.8) 10^3/uL Eos # (Auto) 0.0 (0.0-0.7) 10^3/uL Baso # (Auto) 0.0 (0.0-0.1) 10^3/uL Abs Immat Gran (auto) 0.13 H (0.00-0.03) 10^3/uL Imm/Tot Granulo (auto) 3.3 H (0.0-0.5) % Sodium 137 (136-145) mmol/L Potassium 5.1 (3.5-5.1) mmol/L Chloride 101 (98-107) mmol/L Carbon Dioxide 28.3 (21.0-32.0) mmol/L Anion Gap 12.8 BUN 56.0 H (7.0-18.0) mg/dL Creatinine 2.53 H (0.70-1.30) mg/dL Est GFR ( Amer) 30 L (>=60) Est GFR (Non-Af Amer) 24 L (>=60) BUN/Creatinine Ratio 22.1 Glucose 177 H (74-106) mg/dL Calcium 9.0 (8.5-10.1) mg/dL Discharge Plan Discharge Chief Complaint: Epistaxis Clinical Impression: Acute right otitis media, Epistaxis Patient Disposition: Home, Self-Care Prescriptions / Home Meds: No Action dapagliflozin propanediol [Farxiga] 10 mg tablet 10 mg PO DAILY omeprazole 40 mg capsule,delayed release(DR/EC) 40 mg PO DAILY terazosin 5 mg capsule 5 mg PO QPM aspirin 81 mg tablet,delayed release (DR/EC) 81 mg PO QPM atorvastatin 20 mg tablet 20 mg PO QDAY (DME) OneTouch Ultra Test Strip MISCELLANEOUS glipizide [Glucotrol XL] 5 mg tablet extended release 24hr 5 mg PO QPM metoprolol succinate [Toprol XL] 25 mg tablet extended release 24 hr 25 mg PO DAILY cyclobenzaprine 5 mg tablet 5 mg PO BID PRN (Reason: muscle spasm) cholecalciferol (vitamin D3) [Vitamin D3] 25 mcg (1,000 unit) tablet 25 mcg PO DAILY lisinopril 2.5 mg tablet 2.5 mg PO DAILY 30 Days Qty: 30 0RF febuxostat 40 mg Tablet 40 mg PO DAILY 30 Days Qty: 30 0RF bumetanide 1 mg tablet 1 mg PO QAM Qty: 0 0RF Instructions: Nosebleed (ED), Ear Infection (ED) Additional Instructions: do not blow your nose. Follow up with your doctor in a couple of days Referrals: JACQUELIN HERNANDES [Primary Care Provider] - 1 week Stand Alone Forms: Portal Instructions Procedures ED Procedure Instructions Procedures Procedures: bleeding left nostril. Has blood left anterior septum. No active bleeder Afrin soaked cotton ball placed in left nostril. silver nitrate then used to cauterize area. Again no definite active bleeder. no bleeding after procedure
[2023-09-30 21:22] LABS: Basophils Percent Auto 0.5 % (0.2-2.0); Hematocrit 24.8 % (42.0-54.0); Hemoglobin 7.6 g/dL (14.0-18.0); Immature Granulocytes Abs Auto 0.13 10^3/uL (0.00-0.03); Immature Granulocytes Pct Auto 3.3 % (0.0-0.5); Lymphocytes Absolute Auto 0.7 10^3/uL (1.2-3.8); Lymphocytes Percent Auto 18.8 % (20.5-60.0); Mean Corpuscular HGB Conc 30.6 g/dL (29.9-35.2); Mean Corpuscular Hemoglobin 30.6 pg (25.9-34.0); Mean Platelet Volume 15.4 fL (9.5-13.5); Monocytes Percent Auto 26.4 % (1.7-12.0); Platelet Count 84 10^3/uL (150-450); Red Blood Count 2.48 10^6/uL (4.70-6.10); Red Cell Distribution Width 21.7 % (11.0-15.0); White Blood Count 3.9 10^3/uL (4.0-11.0)
[2023-09-30] MEDS: OXYMETAZOLINE HCL 0.05% NASAL SPRAY 2 SPRAY NS (21:24)
[2023-09-30 21:31] LABS: Anion Gap 12.8; BUN Creatinine Ratio 22.1; Carbon Dioxide 28.3 mmol/L (21.0-32.0); Chloride 101 mmol/L (98-107); Estimated GFR (African America 30 (>=60); Estimated GFR (Non-African Ame 24 (>=60); Glucose 177 mg/dL (74-106); Potassium 5.1 mmol/L (3.5-5.1); Sodium 137 mmol/L (136-145)
[2023-09-30 21:54] VITALS: BP 130/88; PULSE 60; O2SAT 100
[2023-09-30] MEDS: SILVER NITRATE APPLICATOR STICK 5 APPLIC TOPICAL (22:24)
[2023-09-30 22:45] VITALS: PULSE 63; O2SAT 100
[2023-09-30 22:47] VITALS: BP 108/66
[2023-09-30] MEDS: AMOXICILLIN 500 MG CAPSULE 1000 MG PO (22:50)
== END 2023-09-30 23:08 | disposition home or self-care (01) ==
PROVIDERS: Emergency Provider Internal Medicine; PCP Family Medicine
DX: R04.0 Epistaxis (principal); H66.91 Otitis media, unspecified, right ear; N18.4 Chronic kidney disease, stage 4 (severe); Z79.82 Long term (current) use of aspirin; Z79.84 Long term (current) use of oral hypoglycemic drugs; I50.9 Heart failure, unspecified; C94.6 Myelodysplastic disease, not elsewhere classified; E78.5 Hyperlipidemia, unspecified; E11.22 Type 2 diabetes mellitus with diabetic chronic kidney disease; I12.9 Hypertensive chronic kidney disease with stage 1 through stage 4 chronic kidney disease, or unspecified chronic kidney disease; Z95.5 Presence of coronary angioplasty implant and graft; Z87.891 Personal history of nicotine dependence
CPT/HCPCS: 36415; 80048; 85025; 99283

== ENCOUNTER 2023-10-01 13:55 | Emergency (ER) | payer MEDICARE, SELFPAY ==
[2023-10-01 14:00] VITALS: BP 102/69; PULSE 72; RESP 18; TEMP 36.5; O2SAT 97; BMI 32.9
--- NOTE | 2023-10-01 14:56 | ED_ITS ---
HPI - General Adult General Chief complaint: Epistaxis Stated complaint: NOSE BLEED Time Seen by Provider: 10/01/23 14:05 Source: patient Mode of arrival: walk-in Limitations: no limitations History of Present Illness HPI narrative: Patient is a 82-year-old male who is presenting to the ER today with acute on chronic left nosebleed. Patient has had this problems before, patient has seen Dr. Marshall before, last time was 2 or 3 years ago. Patient was here in the ER last evening for left nasal bleeding. Patient was seen and evaluated by Dr. Ugalde. Patient had cottonball soaked medication to help with vasoconstriction, patient was not having much bleeding last night. Dr. Ugalde cauterized a small area to left nostril and was discharged. Patient says that he went home bleeding did stop, but then the bleeding started again and patient's had slow bleeding from his left nostril all night and all day. Patient is found to come back to the ER. Patient does wear nasal cannula, 3 L of oxygen. Patient has multiple comorbidities. Patient does not take any blood thinners. Patient is at bedside. No trauma, no fall, no other acute complaints. Patient arrives with a paper towel stuck in his left nostril that is soaked with blood. No active dripping from his left nostril at this time. All systems are negative except as noted/marked. All systems reviewed and otherwise negative. Nurses note and vital signs reviewed and patient is not hypoxic. Patient wears 3 L nasal cannula at all times for General: The patient appears well and in no apparent distress. Patient is resting comfortably on cart. Patient is not toxic, lethargic, or listless Skin: Warm, dry, no pallor noted. There is no rash noted. No petechiae, purpura. Head: Normocephalic, atraumatic Eye: Normal conjunctiva, no drainage, EOMI. PERRL Ears, Nose, Mouth, and Throat: oral mucosa is moist. Patient has small amount of blood and clot hanging in his posterior pharynx. Nares patent. Mouth without vesicles. Patient had clot noted to the left nostril, no active bleeding, please see procedure note. Cardiovascular: Regular Rate and Rhythm, no murmur, gallop, rub Respiratory: Patient is in no distress, no accessory muscle use, lungs are clear to auscultation, no wheezing, rales or rhonchi Back: non-tender, GI: Obese, soft, no tenderness Musculoskeletal: Patient has full range of motion of all of the extremities, no motor, sensory, or focal neurological deficits Neurological: A&O x4, normal speech Psychiatric: Cooperative Related Data Home Medications Medication Instructions Recorded Confirmed aspirin 81 mg tablet,delayed 81 mg PO QPM 02/03/23 09/30/23 release dapagliflozin propanediol 10 mg 10 mg PO DAILY 02/03/23 09/30/23 tablet (Farxiga) omeprazole 40 mg capsule,delayed 40 mg PO DAILY 02/03/23 09/30/23 release terazosin 5 mg capsule 5 mg PO QPM 02/03/23 09/30/23 atorvastatin 20 mg tablet 20 mg PO QDAY 04/23/23 09/30/23 [facility] 04[facility]23/23 07/09/23 Ultra Test strips) cholecalciferol (vitamin D3) 25 25 mcg PO DAILY 07/09/23 09/30/23 mcg (1,000 unit) tablet (Vitamin D3) cyclobenzaprine 5 mg tablet 5 mg PO BID PRN muscle spasm 07/09/23 09/30/23 glipizide 5 mg tablet, extended 5 mg PO QPM 07/09/23 09/30/23 release 24 hr (Glucotrol XL) metoprolol succinate 25 mg 25 mg PO DAILY 07/09/23 09/30/23 tablet,extended release 24 hr (Toprol XL) Previous Rx's Medication Instructions Recorded bumetanide 1 mg tablet 1 mg PO QAM #0 tabs 07/10/23 febuxostat 40 mg tablet 40 mg PO DAILY 30 days #30 tabs 07/10/23 lisinopril 2.5 mg tablet 2.5 mg PO DAILY 30 days #30 tabs 07/10/23 cephalexin 500 mg capsule 500 mg PO Q12H 7 days #14 caps 10/01/23 Allergies Allergy/AdvReac Type Severity Reaction Status Date / Time bee venom protein (honey bee) Allergy Severe Verified 09/30/23 20:36 coreg Allergy Severe Uncoded 09/30/23 20:36 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, valve unspecified (ICD-10) Anemia ?D64.9 - Anemia, unspecified (ICD-10) Surgical History History of heart artery stent ?Z95.5 - Presence of coronary angioplasty implant and graft (ICD-10) Family History Father Family history of stroke Mother Family history of stroke Family history of hypertension Family history of CHF (congestive heart failure) Brother Family history of diabetes mellitus Sister Family history of cancer Social History Within the past year, how often did you have a drink containing alcohol: never Score interpretation: A score less than 4 is consistent with normal alcohol consumption. 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 Highest level of school completed/degree received: high school graduate Are you now , , , , never or living with a partner: In a typical week, how many times do you talk on the telephone with family, friends, or neighbors: 3 or more times per week How often do you get together with friends or relatives: 3 or more times per week How often do you attend moravian or islam services: 1-3 times per year Little interest or pleasure in doing things: not at all Feeling down, depressed, or hopeless: not at all Feel stressed/tense/nervous/anxious/difficulty sleeping: not at all Life stressors: unknown source of stress Do you think of yourself as: straight/heterosexual Gender Identity: male Exam Constitutional Vital Signs, click to edit/add: Last Vital Signs Temp 97.7 F 10/01/23 14:00 Pulse 72 10/01/23 14:00 Resp 18 10/01/23 14:00 BP 102/69 10/01/23 14:00 Pulse Ox 97 10/01/23 14:00 Course Vital Signs Vital signs: Vital Signs Temperature 97.7 F 10/01/23 14:00 Pulse Rate 72 10/01/23 14:00 Respiratory Rate 18 10/01/23 14:00 Blood Pressure 102/69 10/01/23 14:00 Pulse Oximetry 97 10/01/23 14:00 Temperature 97.7 F 10/01/23 14:00 Pulse Rate 72 10/01/23 14:00 Respiratory Rate 18 10/01/23 14:00 Blood Pressure 102/69 10/01/23 14:00 Pulse Oximetry 97 10/01/23 14:00 Discharge Plan Discharge Chief Complaint: Epistaxis Clinical Impression: Epistaxis Patient Disposition: Home, Self-Care Time of Disposition Decision: 15:22 Condition: Fair Prescriptions / Home Meds: New cephalexin 500 mg capsule 500 mg PO Q12H 7 Days Qty: 14 0RF No Action dapagliflozin propanediol [Farxiga] 10 mg tablet 10 mg PO DAILY omeprazole 40 mg capsule,delayed release(DR/EC) 40 mg PO DAILY terazosin 5 mg capsule 5 mg PO QPM aspirin 81 mg tablet,delayed release (DR/EC) 81 mg PO QPM atorvastatin 20 mg tablet 20 mg PO QDAY (DME) OneTouch Ultra Test Strip MISCELLANEOUS glipizide [Glucotrol XL] 5 mg tablet extended release 24hr 5 mg PO QPM metoprolol succinate [Toprol XL] 25 mg tablet extended release 24 hr 25 mg PO DAILY cyclobenzaprine 5 mg tablet 5 mg PO BID PRN (Reason: muscle spasm) cholecalciferol (vitamin D3) [Vitamin D3] 25 mcg (1,000 unit) tablet 25 mcg PO DAILY lisinopril 2.5 mg tablet 2.5 mg PO DAILY 30 Days Qty: 30 0RF febuxostat 40 mg Tablet 40 mg PO DAILY 30 Days Qty: 30 0RF bumetanide 1 mg tablet 1 mg PO QAM Qty: 0 0RF Instructions: Nosebleed (ED) Additional Instructions: Use your Tylenol with codeine at home if needed for pain. If the pain is not that bad, you can use Tylenol every 4 hours[address] Do not take Tylenol. Dr Azul has spoken to ENT physician, Dr. Marshall. He would like you to return back to the ER starting morning as discussed, between 8 AM to 10 AM is probably a good time to return. Dr. Marshall would like us to take out the Rhino Rocket starting morning. If bleeding has stopped, he will be discharged. If bleeding starts again, the ER physician will place another Rhino Rocket and you have an appointment on Friday to see Dr. Marshall. You have an appointment on October 06PM to see Dr Marshall in the [place] office. Continue all medications as prescribed. take additional antibiotic prescription to help prevent infection. Referrals: JACQUELIN HERNANDES [Primary Care Provider] - 1 week Stand Alone Forms: Portal Instructions Procedures ED Procedure Instructions Procedures Procedures: Evelin HEALY was at bedside during the entire procedure Patient has been having slow bleeding all night long, patient has a paper towel in his left nostril. Patient had the paper towel removed, it was noted by visualization the patient has large clot to the back of his left nostril that is able to be visualized. With forceful bleeding, patient did not initially remove or clear any clot. With Schaeffer suction and then using Yankauer, and no clot was able to be evacuated. I then used the band knots, and I was able to extract 1 large clot. Patient then attempted multiple times with forceful blowing his nose, and he was able to clear 2 additional large clots. Patient had forceful blowing and no other significant clot was removed. 1450 Patient then had a 5.5 cm Rhino Rocket used to left nostril. With slow increments, patient had a total of 11 cc placed into the balloon. Patient is tolerating this with mild discomfort. No active bleeding was continuing to the posterior pharynx and also out of his left nostril. Will watch patient for approximately 2030 minutes. Patient is drinking water no difficulty, patient did a swish and spit. No blood was noted in his mouth when he did a swish and spit.
== END 2023-10-01 15:40 | disposition home or self-care (01) ==
PROVIDERS: Emergency Provider Emergency Medicine; PCP Family Medicine
DX: R04.0 Epistaxis (principal); I11.0 Hypertensive heart disease with heart failure; I50.9 Heart failure, unspecified; C94.6 Myelodysplastic disease, not elsewhere classified; E78.5 Hyperlipidemia, unspecified; E11.9 Type 2 diabetes mellitus without complications; Z95.5 Presence of coronary angioplasty implant and graft; Z99.81 Dependence on supplemental oxygen; Z79.82 Long term (current) use of aspirin; Z79.899 Other long term (current) drug therapy
CPT/HCPCS: 30901; 99284

== ENCOUNTER 2023-10-04 09:18 | Emergency (ER) | payer MEDICARE, SELFPAY ==
[2023-10-04 09:24] VITALS: BP 106/46; PULSE 68; RESP 20; TEMP 36.4; O2SAT 98; BMI 32.3
[2023-10-04 09:25] VITALS: O2SAT 95
--- OUTSIDE RECORDS SUMMARY | 2023-10-04 09:30 | XMS_ITS | CCD ---
Author Name Unknown Address [address] [place] [address] Organization [facility] Care Team Providers Care Farm Rancher Name Role Phone MYLENE ANDREW Unavailable Unavailable Flash Pearl Unavailable Unavailable Evette Sheriff Unavailable Unavailable Flash Pearl Unavailable Unavailable MYLENE ANDREW Unavailable Unavailable Flash Pearl Unavailable Unavailable Evette Sheriff Unavailable Unavailable Flash Pearl Unavailable Unavailable Flash Pearl Primary Care Provider Flash Pearl MD Primary Care Provider Sheng Gomez MD Unavailable Estephanie SEN, Asher Unavailable Michelle PIT AND AUXILIARIES SUPERVISOR.Wilfred GREENE Unavailable Anh HEALY, Angle Unavailable KELSEY RAMIREZ Admitting Unavailable SELF, REFERRED Referring Unavailable FLASH PEARL Primary Care Unavailable RAMOS, LUIS Attending Unavailable Flash Pearl MD Primary Care Provider [phone] Sheng Gomez MD Unavailable Estephanie SEN, Asher Unavailable [phone] Michelle PIT AND AUXILIARIES SUPERVISOR.Cristel GREENEy Unavailable Anh RN, Angle Unavailable Flash Pearl MD Primary Care Provider Estephanie SEN, Asher Unavailable [phone] Anh HEALY, Angle Unavailable [phone] Flash Pearl MD Primary Care Provider Flash Pearl MD Primary Care Provider Sheng Gomez MD Unavailable Estephanie SEN, Asher Unavailable Michelle PIT AND AUXILIARIES SUPERVISOR.Wilfred GREENE Unavailable Anh HEALY, Angle Unavailable [phone] CLAUDIAC, DR SORIA Attending Unavailable MISC, DR SORIA Admitting Unavailable REQUEST, DR NONE LISTED Primary Care Unavaila ble MISC, DR SORIA Attending Unavailable PEARL ., DR FLASH Holden Primary Care Unavailable MISC, DR SOIRA Admitting Unavailable MISC, DR SORIA Consulting Unavailable HYJUAN DANIEL, ASHER Consulting Unavailable FLAKITA ., MARICRUZ Attending Unavailable FLAKITA ., MARICRUZ Admitting Unavailable PEARL ., DR FLASH Holden Procedure Practitioner Unavai lable REQUEST, NONE LISTED Primary Care Unavaila ble PEARL ., DR FLASH Holden Consulting Unavailable KERMIT, DR JOSIE Rowe Consulting Unavailable ZIEBER, DR OUMOU Butts Consulting Unavailable PAY ., DR MEDINA Consulting Unavailable SORENSON, NAYANA Consulting Unavailable FLAKITA ., MARICRUZ Consulting Unavailable LORI, DR RADHA Collado Attending Unavailable LORI, DR RADHA Collado Admitting Unavailable REQUEST, NONE LISTED Primary Care Unavaila ble CLAUDIAC, DR SORIA Consulting Unavailable LORI, DR RADHA Collado Consulting Unavailable ABHYANKAR, ASHER Consulting Unavailable MICHELLE, DR WILFRED Collado [...] Unavailable LORI, DR RADHA Collado Consulting Unavailable ABHYJUAN DANIEL, ASHER Consulting Unavailable PEARL ., DR FLASH Holden Consulting Unavailable PEARL ., DR FLASH Holden Attending Unavailable PEARL ., DR FLASH Holden Admitting Unavailable PEARL ., DR FLASH Holden Primary Care Unavailable MISC, DR SORIA Admitting Unavailable PEARL ., DR FLASH Holden Primary Care Unavailable MISC, DR DOCTOR Attending Unavailable MISC, DR SORIA Consulting Unavailable ABHYANKAR, ASHER Consulting Unavailable REQUEST, DR NONE LISTED Primary Care Unavaila ble ABAZA, DR GARZA Consulting Unavailable MISC, DR SORIA Admitting Unavailable MISC, DOCTOR Attending Unavailable ABHYANKAR, ASHER Consulting Unavailable ABHYANKAR, ASHER Attending Unavailable ABHYANKAR, ASHER Admitting Unavailable REQUEST, DR NONE LISTED Primary Care Unavaila ble ABHYANKAR, ASHER Consulting Unavailable MISC, DOCTOR Attending Unavailable MISC, DOCTOR Admitting Unavailable MISC, DR SORIA Consulting Unavailable PEARL ., DR FLASH Holden Primary Care Unavailable MISC, DOCTOR Attending Unavailable REQUEST, DR NONE LISTED Primary [...] Unavailable PEARL, FLASH EDWARD Primary Care Unavailable PEARLFLASH PAZ EDWARD Primary Care Unavailable PEARLFLASH PAZ EDWARD Primary Care Unavailable PEARL, FLASH EDWARD [...] PEARL, FLASH EDWARD Primary Care Unavailable JAVAD EDOMNDSON Referring Unavailable PEARL, FLASH EDWARD Primary Care [...] Care Unavailable ABHYANKAR, ASHER Referring Unavailable PEARL, FLSAH EDWARD Primary Care Unavailable ABHYANKAR, ASHER Referring [...] Care Unavailable ABHYANKAR, ASHER Referring Unavailable PEARL, FLSAH EDWARD Primary Care Unavailable ABHYANKAR, ASHER Attending Unavailable WILFRED MARTINEZ Referring Unavailable PEARL, FLASH EDWARD Primary Care Unavailable PEARL, FLASH EDWARD Primary Care Unavailable PEARL, FLASH EDWARD Primary Care Unavailable ELYSIA ESPOSITO Attending Unavailable PEARL, FLASH EDWARD Primary Care Unavailable PEARL, FLASH EDWARD Primary Care Unavailable CATE, ELYSIA S Referring Unavailable CATE, ELYSIA S Attending Unavailable ABHYANKAR, ASHER Referring Unavailable [...] Care Unavailable Álvaro Barton Primary Care Physician [phone] MATHEUS MACHADO Referring Unavailable PEARL, FLASH E Primary Care Unavailable Mayank DO Attending Unavailable EarlMalinda marin Attending Unavailable EarlMalinda marin L Admitting Unavailable Earl Malinda L Admitting Unavailable EarlMalinda L Attending Unavailable Álvaro Barton Attending Unavailable Álvaro Barton Attending Unavailable Álvaro Barton Attending Unavailable Álvaro Barton Attending Unavailable Álvaro Barton Attending Unavailable Álvaro Barton Attending Unavailable Álvaro Barton Attending Unavailable Álvaro Barton Admitting Unavailable Álvaro Barton Attending Unavailable Álvaro Barton Admitting Unavailable Al-Marraenedelia, Mhd Yaser Admitting Unavailabl e Al-Marrawi, Mhd Yaser Attending Unavailabl e Al-Marrawi, Mhd Yaser Attending Unavailabl e Álvaro Barton ELianna Referring Unavailable Álvaro Barton Attending Unavailable Álvaro Barton ELianna Admitting Unavailable Álvaro Barton ELianna Admitting Unavailable Jasper MARIE Attending Unavailable Álvaro Barton Attending Unavailable Álvaro Barton Attending Unavailable PEARL, FLASH E Attending Unavailable EarlMalinda marin L Attending Unavailable PEARLFLASH PAZ E Attending Unavailable Álvaro Barton Attending Unavailable Mayank DO Attending Unavailable Álvaro Barton Referring Unavailable SHENG GOMEZ Attending Unavailable RAYO QUINTERO Attending Unavailable SHENG GOMEZ Attending Unavailable SHENG GOMEZ Attending Unavailable Allergies Allergy Classification Reported Allergen(s) Allergy Type Date of Onset Reaction(s) Facility (2 sources) carvedilol; Translations: [Coreg] Drug Allergy 6 unknown [facility] Repository (20 sources) Bee/Wasp/Ant venom Propensity to adverse reactions 2 [facility] (20 sources) carvedilol; Translations: [CARVEDILOL] Drug Allergy 0 Hives, Weal (disorder) [facility] (1 source) Bee/Wasp/Ant venom; Translations: [Bee/Wasp Stings] Propensity to adverse reactions (disorder) 2 [facility] Repository (1 source) carvedilol Drug Allergy 1 [facility] Repository (1 source) bee venom Drug allergy (disorder) [facility] Repository (1 source) OTHER; Translations: [OTHER] Propensity to adverse reactions (disorder) 2 [facility] Repository (5 sources) Metoprolol; Translations: [metoprolol] Drug Allergy [facility] (1 source) Sulfonamide -class of antibiotic-; Translations: [Sulfonamide -class of antibiotic-] Propensity to adverse reactions (disorder) [facility] Repository (1 source) Bee pollen; Translations: [BEE POLLEN] Propensity to adverse reactions to drug (disorder) 2 [facility] Repository Medications Current Medications Medication Drug Class(es) [...] Daily, # 90 tab(s), Refills(s) 1, Pharmacy: [facility] [id number], 170.2, cm, 02/13/23 15:53:00 EDT, Height/Length Dosing, [...] BID, # 180 tab(s), Refills(s) 1, Pharmacy: [facility] [id number], 170.2, cm, 02/13/23 15:53:00 EDT, Height/Length Dosing, [...] TID, # 270 tab(s), Refills(s) 1, Pharmacy: [facility] [id number], 170.2, cm, 02/13/23 15:53:00 EDT, Height/Length Dosing, 102.4, kg, 02/13/23 15:53:00 EDT, Weight Dosing Start Date: 02/24/23 Status: Ordered Start: 12-09-2020 colchicine 0.6 mg tablet Take 0.6 mg by mouth as needed. As needed 1-2 times/week 0 12/09/2020 Active Start: 03-25-2017 take 1 tablet by adrain th three times daily colchicine 0.6 mg Tab [...] Daily, # 90 tab(s), Refills(s) 1, Pharmacy: [facility] [id number], 170.2, cm, 02/13/23 15:53:00 EDT, Height/Length Dosing, [...] System (Sensor) (1 source) Start: 03-10-20 Freestyle Carmen 2 Flash Glucose Monitoring 14 Day System (Sensor) Freestyle Carmen 2 Flash Glucose Monitoring 14 Day System (Sensor), See Instructions, 2 EA, 0, Freestyle Carmen Flash Glucose Monitoring 14 Day System (Sensor). Replace sensor every 14 days., [employer] [id number], Supply, 170.2, cm, 03/10/23 14:59:0... Start Date: 03/10/23 Status: Ordered Freestyle Carmen Flash 2 Glucose Monitoring 14 Day System (Thermal) (1 source) Start: 03-10-20 Freestyle Carmen Flash 2 Glucose Monitoring 14 Day System (Thermal) Freestyle Carmen Flash 2 Glucose Monitoring 14 Day System (Thermal), See Instructions, 1 EA, 0, Freestyle Carmen Flash Glucose Monitoring 14 Day System (Thermal), [employer] [id number], Supply, 170.2, cm, 03/10/23 14:59:00 EDT, Height/Length Dosing, 10... Start Date: 03/10/23 Status: Ordered glipiZIDE er 5 mg 24 hr extended release oral tablet (20 sources) Sulfonylurea Start: 02-25-20 take 1 tablet by mouth twice daily glipiZIDE 5 mg ER Tab 5 mg = 1 tab(s), Oral, BID, # 180 tab(s), Refills(s) 1, Pharmacy: [facility] [id number], 170.2, cm, 02/13/23 15:53:00 EDT, Height/Length Dosing, [...] BID, # 90 tab(s), Refills(s) 1, Pharmacy: [facility] [id number], 170.2, cm, 02/13/23 15:53:00 EDT, Height/Length Dosing, [...] Daily, # 90 tab(s), Refills(s) 1, Pharmacy: [facility] [id number], 170.2, cm, 02/13/23 15:53:00 EDT, Height/Length Dosing, [...] Daily, # 45 tab(s), Refills(s) 1, Pharmacy: [facility] [id number], 170.2, cm, 02/13/23 15:53:00 EDT, Height/Length Dosing, [...] Daily, # 90 cap(s), Refills(s) 1, Pharmacy: [facility] [id number], 170.2, cm, 02/13/23 15:53:00 EDT, Height/Length Dosing, 102.4, kg, 02/13/23 15:53:00 EDT, Weight Dosing Start Date: 02/24/23 Status: Ordered Start: 11-20-2022 take 1 capsule by mo [facility] once daily omeprazole 40 mg Cap-DR [...] Daily, # 90 tab(s), Refills(s) 1, Pharmacy: [facility] [id number], 170.2, cm, 02/13/23 15:53:00 EDT, Height/Length Dosing, 102.4, kg, 02/13/23 15:53:00 EDT, Weight Dosing Start Date: 02/24/23 Status: Ordered Start: 11-25-2021 take 1 tablet by adrian once daily spironolactone 25 mg Tab 25 mg = 1 tab(s), Oral, Daily, Refills(s) 0 Start Date: 11/20/22 Status: Ordered Start: 01-14-2005 take 1 tablet by adrian th once daily in the morning ALDACTONE 25 [...] Daily, # 90 cap(s), Refills(s) 1, Pharmacy: [facility] [id number], 170.2, cm, 12/03/22 13:27:00 EDT, Height/Length Dosing, [...] Coronary atherosclerosis of unspecified type of vessel, [place] ira or graft Take one(1) tablet daily at [...] tablet by mouth twice daily Potassium Chloride (Vyh-Atjb-Mya M20) 20 mEq oral tablet, extended release 20 mEq = 1 tab(s), Oral, BID, # 180 tab(s), Refills(s) 1, Pharmacy: [facility] [id number], 170.2, cm, 02/13/23 15:53:00 EDT, Height/Length Dosing, 102.4, kg, 02/13/23 15:53:00 EDT, Weight Dosing Start Date: 02/24/23 Status: Ordered Start: 11-20-2022 take 1 tablet by adrian th twice daily Potassium Chloride (Zoa-Nlzt-Fet M20) 20 mEq oral tablet, extended release [...] (congestive) and diastolic (congestive) heart failure] Onset: 12-07-2022 Chronic Coronary atherosclerosis and other heart disease (20 sources) Coronary atherosclerosis; Translations: [Atherosclerotic heart disease of [place] ir[place] coronary artery without angina pectoris] Onset: 01-13-2002 [...] 01-13-2002 11-21-2003 Chronic Fluid and electrolyte disorders (4 sources) Hyperkalemia; Translations: [Hyperkalemia] Onset: 12-11-2022 Episodic Genitourinary symptoms and ill-defined conditions (4 sources) Urge incontinence of urine 09-05-2020 Chronic Genitourinary symptoms and ill-defined conditions (8 sources) Microscopic hematuria; Translations: [Urgent desire to urinate] 09-02-2019 Episodic Heart valve disorders (3 sources) Nonrheumatic mitral (valve) insufficiency; Translations: [NONRHEUMATIC MITRAL INSUFFICIENCY] Onset: 12-11-2022 Chronic Hyperplasia of prostate (4 sources) Benign [...] fatigue; Translations: [OTHER FATIGUE] Onset: 12-07-2022 Episodic Neoplasms of unspecified nature or uncertain behavior (20 sources) Myelodysplastic syndrome (clinical); Translations: [Myelodysplastic syndrome, unspecified] Onset: 05-29-2020 05-29-2020 Episodic Other aftercare (1 source) senior care (current) use of aspirin; Translations: [SPEAKER MOUNTER CURRENT USE OF ASPIRIN] Onset: 12-11-2022 Episodic Other aftercare (1 source) Other salvage determiner (current) drug therapy; Translations: [OTH FCI CURRENT DRUG THERAPY] Onset: 12-11-2022 Episodic Other aftercare (1 source) salvage determiner (current) use of oral hypoglycemic drugs; Translations: [FCI USE ORAL HYPOGLYCEMIC DX] Onset: 12-11-2022 Episodic [...] [Gastrointestinal hemorrhage, unspecified] Onset: 0 07-14-2020 Episodic Other circulatory disease (20 sources) Low [...] Name Value Interpretation Reference Range Facil ity Office Visiton 09-29-2023 Follow-up visit [id number] DonisLloydSandip A 1940 M Date Provider Department Center 09/29/2023 SHENG BERGMAN CARD [facility] Family History Problem Relation Age of Onset Hypertension Mother Stroke Father Breast cancer Sister Family Status - Relation Status Age at Mother Father Sister Level of Service:36069 LA OFFICE/OUTPATIENT ESTABLISHED HIGH MDM 40 MIN Normal [facility] 36on 09-26-2023 36 Patient's made aware to hold bumex over the weekend and have repeat labs before 3:15pm apt with Dr. Gomez on Friday, 09/28. Orders faxed to [facility]. Normal [facility] 36on 09-23-2023 36 [facility] lab called with critical lab values: ProBNP is 2604, BUN is 87. Normal [facility] Ambulatory Visit Summaryon 0 09-22-2023 Ambulatory Visit Summary SANDIP BROUSSARD :1940 Visit Date:09/22/2023 Ambulatory Visit Instructions Your Diagnosis Incomplete bladder emptying BPH with obstruction/lower urinary tract symptoms Penile cyst Your Care Team Attending Physician - Mayank DO MD Primary Care Physician - Álvaro Barton MD Referring Physician - Álvaro Barton MD This Is Your Medications List terazosin (terazosin 5 mg Cap) Contact prescribing physician if questions or concerns Misc Prescription (Freestyle Carmen 2 Flash Glucose Monitoring 14 Day System (Sensor)) Misc Prescription (Freestyle Carmen Flash 2 Glucose Monitoring 14 Day System (Thermal)) Misc Prescription (Misc DME Prescription) aspirin (aspirin 81 mg Oral EC Tab) atorvastatin (atorvastatin 20 mg Tab) bumetanide (bumetanide 2 mg Tab) cholecalciferol (Vitamin D3 1000 intl units oral tablet) dapagliflozin (Farxiga 10 mg oral tablet) febuxostat glipiZIDE (glipiZIDE 5 mg ER Tab) lisinopril (lisinopril 2.5 mg Tab) metoprolol (metoprolol 25 mg ER Tab) omeprazole (omeprazole 40 mg Chandrakant-) potassium chloride (Klor-Con M20 oral tablet, extended release) spironolactone (spironolactone 25 mg Tab) Procedures Performed cysto/ud, bilateral RG Pyelogram (10/23/2011), Cataract care, Placement of stent in cardiac conduit. Discharge Vitals Height 170 cm Height 67 in Weight 90 kg Weight 198 lb BMI 31.14 What to do next Scheduled Follow-Up Appointments Friday 1:15 PM EDT With: Mick SEN, Álvaro Davies Where: [facility] Normal [address] [place] [address]- \.br\ You Need to Schedule the Following Appointments\.br\ Follow Up with HI SEN, Mayank Butts, URL When: \.br\ Comments:\.br\ 6 mos (no labs)\.br\ Where:\.br\ [facility] [address]\.br\ [place] [address]-\.br\ [id number]\.br\ Medications\.br\ What How Much When Why Instructions\.br\ Changed terazosin (terazosin 5 mg Cap) 1 Capsules By Mouth Once a day (at bedtime) Pickup at [facility] [id number]\.br\ Unchanged aspirin (aspirin 81 mg Oral EC Tab) 1 Tablets By Mouth Every day Contact prescribing physician if questions or concerns \.br\ Unchanged atorvastatin (atorvastatin 20 mg Tab) See instructions TAKE 1 TABLET BY MOUTH DAILY Contact prescribing physician if questions or concerns \.br\ Unchanged bumetanide (bumetanide 2 mg Tab) 0.5 Tablets By Mouth Every day Contact prescribing physician if questions or concerns \.br\ Unchanged cholecalciferol (Vitamin D3 1000 intl units oral tablet) 1 Tablets By Mouth Every day Contact prescribing physician if questions or concerns \.br\ Unchanged dapagliflozin (Farxiga 10 mg oral tablet) 1 Tablets By Mouth Every day Contact prescribing physician if questions or concerns \.br\ Unchanged febuxostat 40 Milligram By Mouth Every day Contact prescribing physician if questions or concerns \.br\ Unchanged glipiZIDE (glipiZIDE 5 mg ER Tab) See instructions TAKE 1 TABLET BY MOUTH TWICE A DAY Contact prescribing physician if questions or concerns \.br\ Unchanged lisinopril (lisinopril 2.5 mg Tab) 1 Tablets By Mouth Every day Contact prescribing physician if questions or concerns \.br\ Unchanged metoprolol (metoprolol 25 mg ER Tab) 0.5 Tablets By Mouth Every day Contact prescribing physician if questions or concerns \.br\ Unchanged Misc Prescription (Freestyle Carmen 2 Flash Glucose Monitoring 14 Day System (Sensor)) See instructions Primary hypertension Type 2 diabetes mellitus with diabetic nephropathy, without long-term current use of insulin Mixed hyperlipidemia Bone marrow failure Freestyle Carmen Flash Glucose Monitoring 14 Day System (Sensor). Replace sensor every 14 days. Contact prescribing physician if questions or concerns \.br\ Unchanged Misc Prescription (Freestyle Carmen Flash 2 Glucose Monitoring 14 Day System (Thermal)) See instructions Primary hypertension Type 2 diabetes mellitus with diabetic nephropathy, without long-term current use of insulin Mixed hyperlipidemia Bone marrow failure Freestyle Carmen Flash Glucose Monitoring 14 Day System (Thermal) Contact prescribing physician if questions or concerns \.br\ Unchanged Misc Prescription (Misc DME Prescription) See instructions One touch ultra blue test strips Use as directed to test sugars once a day Contact prescribing physician if questions or concerns \.br\ Unchanged omeprazole (omeprazole 40 mg Cap-DR) 1 Capsules By Mouth Every day Contact prescribing physician if questions or concerns \.br\ Unchanged potassium chloride (Klor-Con M20 oral tablet, extended release) Contact prescribing physician if questions or concerns \.br\ Unchanged spironolactone (spironolactone 25 mg Tab) See instructions TAKE 1 TABLET BY MOUTH DAILY Contact prescribing physician if questions or concerns \.br\ Pharmacy Information\.br\ [facility] [id number]: [address], [place] [id number] [phone]\.br\ Allergies\.br\ carvedilol (Hives)\.br\ metoprolol (hives)\.br\ Problems\.br\ Ongoing - Any problem that you are currently receiving treatment for.\.br\ AP (angina pectoris)\.br\ Bone marrow failure\.br\ BPH with obstruction/lower urinary tract symptoms\.br\ Chronic kidney disease, stage 4 (severe)\.br\ Chronic respiratory failure with hypoxia\.br\ Chronic systolic congestive heart failure\.br\ Follicular impetigo\.br\ Hospital discharge follow-up\.br\ Immunodeficiency due to drugs\.br\ Incomplete bladder emptying\.br\ Kidney cysts\.br\ Microscopic hematuria\.br\ Mixed hyperlipidemia\.b r\ Morbid obesity\.br\ Myelodysplastic syndrome\.br\ Penile cyst\.br\ Primary hypertension\.br\ Pulmonary HTN\.br\ Type 2 diabetes mellitus with diabetic nephropathy, without long-term current use of insulin\.br\ Type 2 diabetes mellitus with hyperlipidemia\.b r\ Urge incontinence\.br\ Urinary urgency\.br\ Historical - Any problem that you are no longer receiving treatment for.\.br\ Renal failure\.br\ Patient Survey\.br\ You may receive a survey via text or e-mail asking about your office visit. Please share your experience with us by completing your survey. We appreciate your feedback and thank you for choosing us for your care.\.br\ Education Materials\.br\ Acute Urinary Retention, Male\.br\ \.br\ Acute urinary retention is a condition in which a person is unable to pass urine or can only pass a little urine. This condition can happen suddenly and last for a short time. If left untreated, it can become long-term (chronic) and result in kidney damage or other serious complications.\.b r\ What are the causes?\.br\ This condition may be caused by:\.br\ ? \.br\ Obstruction or narrowing of the tube that drains the bladder (urethra). This may be caused by surgery, problems with nearby organs, or injury to the bladder or urethra.\.br\ ? \.br\ Problems with the nerves in the bladder.\.br\ ? \.br\ Tumors in the area of the pelvis, bladder, or urethra.\.br\ ? \.br\ Certain medicines.\.br\ ? \.br\ Bladder or urinary tract infection.\.br\ ? \.br\ Constipation.\.br \ What increases the risk?\.br\ This condition is more likely to develop in older men. As men age, their prostate may become larger and may start to press or squeeze on the bladder or the urethra. Other chronic health conditions can increase the risk of acute urinary retention. These include:\.br\ ? \.br\ Diseases such as multiple sclerosis.\.br\ ? \.br\ Spinal cord injuries.\.br\ ? \.br\ Diabetes.\.br\ ? \.br\ Degenerative cognitive conditions, such as delirium or dementia.\.br\ ? \.br\ Psychological conditions. A man may hold his urine due to trauma or because he does not want to use the bathroom.\.br\ What are the signs or symptoms?\.br\ Symptoms of this condition include:\.br\ ? \.br\ Trouble urinating.\.br\ ? \.br\ Pain in the lower abdomen.\.br\ How is this diagnosed?\.br\ This condition is diagnosed based on a physical exam and your medical history. You may also have other tests, including:\.br\ ? \.br\ An ultrasound of the bladder or kidneys or both.\.br\ ? \.br\ Blood tests.\.br\ ? \.br\ A urine analysis.\.br\ ? \.br\ Additional tests may be needed, such as a CT scan, MRI, and kidney or bladder function tests.\.br\ How is this treated?\.br\ Treatment for this condition may include:\.br\ ? \.br\ Medicines.\.br\ ? \.br\ Placing a thin, sterile tube (catheter) into the bladder to drain urine out of the body. This is called an indwelling urinary catheter. After it is inserted, the catheter is held in place with a small balloon that is filled with sterile water. Urine drains from the catheter into a collection bag outside of the body.\.br\ ? \.br\ Behavioral therapy.\.br\ ? \.br\ Treatment for other conditions.\.br\ If needed, you may be treated in the hospital for kidney function problems or to manage other complications.\.b r\ Follow these instructions at home:\.br\ Medicines\.br\ ? \.br\ Take [id number] and prescription medicines only as told by your health care provider. Avoid certain medicines, such as janes [facility] Patient Educationon 09-22-19 Patient Education Urology Acute Urinary Retention, Male Acute urinary retention is a condition in which a person is unable to pass urine or can only pass a little urine. This condition can happen suddenly and last for a short time. If left untreated, it can become long-term (chronic) and result in kidney damage or other serious complications. What are the causes? This condition may be caused by: ? Obstruction or narrowing of the tube that drains the bladder (urethra). This may be caused by surgery, problems with nearby organs, or injury to the bladder or urethra. ? Problems with the nerves in the bladder. ? Tumors in the area of the pelvis, bladder, or urethra. ? Certain medicines. ? Bladder or urinary tract infection. ? Constipation. What increases the risk? This condition is more likely to develop in older men. As men age, their prostate may become larger and may start to press or squeeze on the bladder or the urethra. Other chronic health conditions can increase the risk of acute urinary retention. These include: ? Diseases such as multiple sclerosis. ? Spinal cord injuries. ? Diabetes. ? Degenerative cognitive conditions, such as delirium or dementia. ? Psychological conditions. A man may hold his urine due to trauma or because he does not want to use the bathroom. What are the signs or symptoms? Symptoms of this condition include: ? Trouble urinating. ? Pain in the lower abdomen. How is this diagnosed? This condition is diagnosed based on a physical exam and your medical history. You may also have other tests, including: ? An ultrasound of the bladder or kidneys or both. ? Blood tests. ? A urine analysis. ? Additional tests may be needed, such as a CT scan, MRI, and kidney or bladder function tests. How is this treated? Treatment for this condition may include: ? Medicines. ? Placing a thin, sterile tube (catheter) into the bladder to drain urine out of the body. This is called an indwelling urinary catheter. After it is inserted, the catheter is held in place with a small balloon that is filled with sterile water. Urine drains from the catheter into a collection bag outside of the body. ? Behavioral therapy. ? Treatment for other conditions. If needed, you may be treated in the hospital for kidney function problems or to manage other complications. Follow these instructions at home: Medicines ? Take [id number] and prescription medicines only as told by your health care provider. Avoid certain medicines, such as decongestants, antihistamines, and some prescription medicines. Do not take any medicine unless your health care provider approves. ? If you were prescribed an antibiotic medicine, take it as told by your health care provider. Do not stop using the antibiotic even if you start to feel better. General instructions ? Do not use any products that contain nicotine or tobacco. These products include cigarettes, chewing tobacco, and vaping devices, such as e-cigarettes. If you need help quitting, ask your health care provider. ? Drink enough fluid to keep your urine pale yellow. ? If you have an indwelling urinary catheter, follow the instructions from your health care provider. ? Monitor any changes in your symptoms. Tell your health care provider about any changes. ? If instructed, monitor your blood pressure at home. Report changes as told by your health care provider. ? Keep all follow-up visits. This is important. Contact a health care provider if: ? You have uncomfortable bladder contractions that you cannot control (spasms). ? You leak urine with the spasms. Get help right away if: ? You have chills or a fever. ? You have blood in your urine. ? You have a catheter and the following happens: ? Your catheter stops draining urine. ? Your catheter falls out. Summary ? Acute urinary retention is a condition in which a person is unable to pass urine or can only pass a little urine. If left untreated, this condition can result in kidney damage or other serious complications. ? An enlarged prostate may cause this condition. As men age, their prostate gland may become larger and may press or squeeze on the bladder or the urethra. ? Treatment for this condition may include medicines and placement of an indwelling urinary catheter. ? Monitor any changes in your symptoms. Tell your health care provider about any changes. This information is not intended to replace advice given to you by your health care provider. Make sure you discuss any questions you have with your health care provider. Document Revised: 04/04/2021 Document Reviewed: 04/04/2021 [employer] Patient Education ? 2022 [employer] [facility] 36on 09-16-2023 36 Pro BNP is 4001 Normal [facility] 36 Patient and his stopped by the office today to give you an update. His stomach is very red with dry skin. I called Dr. Barton and he recommended an OTC steroid cream. He said if it didn't improve to call his office to see an SUPERINTENDENT. Patient and his made aware. His weight was 212# today in the office. Would you like him to change increased dose of bumex and potassium? I also ordered BNP since I couldn't find a recent one for him. Please advise. Thanks. [facility] RAD - MISCon 09-12-2023 [facility] - MIS [id number] IFF [facility] 36on 09-11-2023 36 Patient's alonzo d to make you aware that he's gained 14# in 2 days. He weighed 228# in the office recently when you saw him. She said since then he's gone down to 209# and back up to 221#. states he doesn't eat much and has no appetite. He asked her the other day if his O2 was turned on because he was so SOB while using it. It was working fine, but states he felt like the O2 wasn't helping him. She said his extremities are skinny but he's retaining water in his stomach. I did confirm that he's taking bumex 1mg bid and spironolactone 25mg daily. Any recommendations? Please advise. [facility] Telephoneon 09-11-2023 Telephone [phone] Sandip Broussard 1940 Date Provider Department [facility] Family History Problem Relation Age of Onset Hypertension Mother Stroke Father Breast cancer Sister Family Status - Relation Status Age at Mother Father Sister [facility] Retail - Clinical Noteon Retail - Clinical Note [id number] IFF [facility] Office Visiton 08-29-2023 Follow-up visit [id number] Sandip Broussard 1940 M Date Provider Department Center 08/29/2023 SHENG BERGMAN [facility] Family History Problem Relation Age of Onset Hypertension Mother Stroke Father Breast cancer Sister Family Status - Relation Status Age at Mother Father Sister Level of Service:01518 LA OFFICE/OUTPATIENT ESTABLISHED LOW MDM 20 MIN Normal [facility] Basic Metabolic Profon 08-19 Anion gap [Moles/Vol] 13 mmol/L Normal - [facility] Comment on above: Performed By: #### C DP, BMP #### [facility] [address] [place], [place] [id number] [employer] Washer: Josie Castro MD BUN/CRE Ratio 17 Normal - [facility] Comment on above: Performed By: #### C DP, BMP #### [facility] [address] [place], [place] [id number] [employer] Washer: Josie Castro MD Calcium [Mass/Vol] 8.9 mg/dL Normal 8.6-10.4 [facility] Comment on above: Performed By: #### C DP, BMP #### [facility] [address] [place], [place] [address] [employer] Washer: Josie Castro MD Chloride [Moles/Vol] 101 mmol/L Normal 98-107 [facility] Comment on above: Performed By: #### C DP, BMP #### [facility] [address] [place], [place] [id number] [employer] Washer: Josie Castro MD CO2 [Moles/Vol] 29 mmol/L Normal 20-31 [facility] Comment on above: Performed By: #### C DP, BMP #### [facility] [address] [place], [place] [id number] [employer] Washer: Josie Castro MD Creatinine [Mass/Vol] 1.6 mg/dL High 0.7-1.2 [facility] Comment on above: Performed By: #### C DP, BMP #### [facility] [address] [place], [place] [id number] [employer] Washer: Josie Castro MD GFR/1.73 sq M.predicted among non-blacks MDRD (S/P/Bld) [Vol rate/Area] 42 mL/min/{1.73_m2} Low >60 [facility] Comment on above: Result Comment: These results are not intended for use in patients <18 years of age. eGFR results are calculated without a race factor using the 2020 CKD-EPI equation. Careful clinical correlation is recommended, particularly when comparing to results calculated using previous equations. The CKD-EPI equation is less accurate in patients with extremes of muscle mass, extra-renal metabolism of creatine, excessive creatine ingestion, or following therapy that affects renal tubular secretion. Performed By: #### C DP, BMP #### [facility] [address] [place] [address] [employer] Washer: Josie Castro MD Glucose [Mass/Vol] 103 mg/dL High 70-99 [facility] Comment on above: Performed By: #### C DP, BMP #### [facility] [address] [place] [address] [employer] Washer: Josie Castro MD Potassium [Moles/Vol] 4.3 mmol/L Normal 3.7-5.3 [facility] Comment on above: Performed By: #### C DP, BMP #### [facility] [address] [place], [place] [id number] [employer] Washer: Josie Castro MD Sodium [Moles/Vol] 143 mmol/L Normal 135-144 [facility] Comment on above: Performed By: #### C DP, BMP #### [facility] [address] [place] [address] [employer] Washer: Josie Castro MD Urea nitrogen [Mass/Vol] 27 mg/dL High 8-23 [facility] Comment on above: Performed By: #### C DP, BMP #### [facility] [address] [place] [id number] [employer] Washer: Josie Castro MD CBC with Diffon 08-19-2023 Abs. Bands 0.07 k/uL Normal 0.0-1.0 [facility] Comment on above: Performed By: #### C DP, BMP #### [facility] [address] [place] [address] [employer] Washer: Josie Castro MD Abs. Basophil Normal 0.0-0.2 [facility] Comment on above: Performed By: #### C DP, BMP #### [facility] [address] [place] [address] [employer] Washer: Josie Castro MD Abs.Imm.Granulocyte Normal 0.00-0.30 [facility] Comment on above: Performed By: #### C DP, BMP #### [facility] [address] [place] [address] [employer] Washer: Josie Castro MD Abs.Neutrophil (Seg) 0.74 k/uL Low 2.1-6.5 [facility] Comment on above: Performed By: #### C DP, BMP #### [facility] [address] [place] [address] [employer] Washer: Josie Castro MD Bands 3 % Normal 0-10 [facility] Comment on above: Performed By: #### C DP, BMP #### [facility] [address] [place] [id number] [employer] Washer: Josie Castro MD Basophil Normal 0-2 [facility] Comment on above: Performed By: #### C DP, BMP #### [facility] [address] [place] [id number] Mercury Washer: Josie Castro MD Eosinophils (Bld) [#/Vol] 0.02 10*3/uL Normal 0.0-0.4 [facility] Comment on above: Performed By: #### C DP, BMP #### [facility] [address] [place] [address] [employer] Washer: Josie Castro MD Eosinophils/100 WBC (Bld) 1 % Normal 0-5 [facility] Comment on above: Performed By: #### C DP, BMP #### [facility] [address] [place] [address] [employer] Washer: Josie Castro MD Immature Granulocyte Normal 0 [facility] Comment on above: Performed By: #### C DP, BMP #### [facility] [address] [place] [address] [employer] Washer: Josie Castro MD Lymphocytes (Bld) [#/Vol] 1.03 10*3/uL Normal 1.0-4.8 [facility] Comment on above: Performed By: #### C DP, BMP #### [facility] [address] [place] [address] [employer] Washer: Josie Castro MD Lymphocytes/100 WBC (Bld) 45 % High 13-44 [facility] Comment on above: Performed By: #### C DP, BMP #### [facility] [address] [place] [address] [employer] Washer: Josie Castro MD Monocytes (Bld) [#/Vol] 0.44 10*3/uL Normal 0.0-1.0 [facility] Comment on above: Performed By: #### C DP, BMP #### [facility] [address] [place] [address] [employer] Washer: Josie Castro MD Monocytes/100 WBC (Bld) 19 % High 5-9 [facility] Comment on above: Performed By: #### C DP, BMP #### [facility] [address] [place] [address] [employer] Washer: Josie Castro MD Morphology Edmundo (Bld) [Interp] Decreased Platelets Normal [facility] Comment on above: Result Comment: FEW LARGE PLATELETS Manual Differential Performed MODERATE ANISOCYTOSIS Performed By: #### C DP, BMP #### [facility] [address] [place], [place] [id number] [employer] Washer: Josie Castro MD Neutrophil (Seg) 32 % Low 39-75 [facility] Comment on above: Performed By: #### C DP, BMP #### [facility] [address] [place], [place] [id number] [employer] Washer: Josie Castro MD Erythrocyte distribution width (RBC) [Ratio] 22.3 % High 12.1-15.2 [facility] Comment on above: Performed By: #### C DP, BMP #### [facility] [address] [place], [place] [id number] Mercury Washer: Josie Castro MD Hematocrit (Bld) [Volume fraction] 24.6 % Low 41.0-53.0 [facility] Comment on above: Performed By: #### C DP, BMP #### [facility] [address] [place] [address] [employer] Washer: Josie Castro MD Hemoglobin (Bld) [Mass/Vol] 7.8 g/dL Critically low 13.5-17.5 [facility] Comment on above: Performed By: #### C DP, BMP #### [facility] [address] [place], [place] [id number] [employer] Washer: Josie Castro MD MCH (RBC) [Entitic mass] 31.0 pg Normal 26.0-34.0 [facility] Comment on above: Performed By: #### C DP, BMP #### [facility] [address] [place], [place] [id number] [employer] Washer: Josie Castro MD MCHC (RBC) [Mass/Vol] 31.7 g/dL Normal 31.0-37.0 [facility] Comment on above: Performed By: #### C DP, BMP #### [facility] [address] [place] [address] (331) Mercury Washer: Josie Castro MD MCV (RBC) [Entitic vol] 97.6 fL Normal 80.0-100.0 [facility] Comment on above: Performed By: #### C DP, BMP #### [facility] [address] [place] [address] (793) Mercury Washer: Josie Castro MD Platelet mean volume (Bld) [Entitic vol] 15.2 fL High 6.0-12.0 [facility] Comment on above: Performed By: #### C DP, BMP #### [facility] [address] [place] [address] (697) Mercury Washer: Josie Castro MD Platelets (Bld) [#/Vol] 71 10*3/uL Low 140-450 [facility] Comment on above: Performed By: #### C DP, BMP #### [facility] [address] [place] [address] (172) Mercury Washer: Josie Castro MD RBC (Bld) [#/Vol] 2.52 10*6/uL Low 4.50-5.90 [facility] Comment on above: Performed By: #### C DP, BMP #### [facility] [address] [place] [address] (810) Mercury Washer: Josie Castro MD WBC (Bld) [#/Vol] 2.3 10*3/uL Critically low 3.5-11.[address] [facility] Comment on above: Performed By: #### C DP, BMP #### [facility] [address] [place] [address] (333) Mercury Washer: Josie Castro MD [facility] 08-04-19 24 Population Health Case Information Case Priority: None Programs: -- Referral Source: District Resource Officer Referral Reason: Care coordination Case Type: Transition Care Management Risk Score: -- Case Status: Enrolled (July 11, 2023) Date Assigned: July 11, 2023 Assigned By: Puneet Mcelroy Date Enrolled: July 11, 2023 Assigned Primary Personnel: Puneet Mcelroy Assigned Secondary Personnel: -- Case Physician: Mick SEN, Álvaro Davies Problems Ongoing AP (angina pectoris) 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 Chronic kidney disease, stage 4 (severe) Chronic respiratory failure with hypoxia Chronic systolic congestive heart failure [facility] discharge follow-up Immunodeficiency due to drugs Kidney cysts Microscopic hematuria Mixed hyperlipidemia Morbid obesity Myelodysplastic syndrome Primary hypertension Pulmonary HTN Type 2 diabetes mellitus with diabetic nephropathy, without long-term current use of insulin Type 2 diabetes mellitus with hyperlipidemia Urge incontinence Urinary urgency Historical Renal failure Procedure/Surgical History cysto/ud, bilateral RG Pyelogram (10/23/2011), Cataract care, Placement of stent in cardiac conduit. Home Medications aspirin 81 mg Oral EC Tab, 81 mg= 1 tab(s), Oral, Daily atorvastatin 20 mg Tab, 20 mg= 1 tab(s), Oral, Daily, 1 refills bumetanide 2 mg Tab, 1 mg= 0.5 tab(s), Oral, Daily, 1 refills Farxiga 10 mg oral tablet, 10 mg= 1 tab(s), Oral, Daily, 1 refills febuxostat, 40 mg, Oral, Daily Freestyle Carmen 2 Flash Glucose Monitoring 14 Day System (Sensor), See Instructions Freestyle Carmen Flash 2 Glucose Monitoring 14 Day System (Thermal), See Instructions glipiZIDE 5 mg ER Tab, 5 mg= 1 tab(s), Oral, BID, 1 refills lisinopril 2.5 mg Tab, 2.5 mg= 1 tab(s), Oral, Daily metoprolol 25 mg ER Tab, 12.5 mg= 0.5 tab(s), Oral, Daily, 1 refills Misc DME Prescription, See Instructions omeprazole 40 mg Cap-DR, 40 mg= 1 cap(s), Oral, Daily, 1 refills spironolactone 25 mg Tab, See Instructions terazosin 5 mg Cap, See Instructions Vitamin D3 1000 intl units oral tablet, 1000 International_Unit= 1 tab(s), Oral, Daily Allergies carvedilol (Hives) metoprolol (hives) Social History [...] Goals and Interventions Care Plan Progress Note Final TCM#6- Spouse,, Nicki, states patient is 'doing real good.' Spouse notes that since patient had his blood transfusion of 2 iu last week, he has been more mobile, more active, and more alert. States that his SOB and fatigue with exertion has subsided. The home health nurse will draw f/u labs tomorrow 08/05/2023, spouse requested a copy be forwarded to PCP. Reports weight is stable and BP is holding WNL, SBP has not dropped below 100. Spouse notes patient is eating and drinking well. Notes patient sleep is off and on, no change at this time. Denies need for medication refills. Denies any further questions or concerns. Communication Events Date: August 04, 2023 Method: Phone call Type: Outbound Duration (min): 3 Outcome: Case discussion Contact Type: patient relations coordinator Contact Name: Puneet Mcelroy Notes: TCM#6- Spoke with spouse, see ft summary note. Created By: Puneet Mcelroy Date: July 29, 2023 Method: Phone call Type: Outbound Duration (min): 12 Outcome: Case discussion Contact Type: patient relations coordinator Contact Name: Puneet Mcelroy Notes: TCM#5- spoke with spouse, see ft summary note. Created By: Puneet Mcelroy Date: July 22, 2023 Method: Phone call Type: Outbound Duration (min): 2 Outcome: Case discussion Contact Type: patient relations coordinator Contact Name: Puneet Mcelroy Notes: TCM##4-wgt- Spoke with spouse Nicki for TCM/wgt progrtam call status update, see ft sumamry note. Created By: Puneet Mcelroy Date: July 17, 2023 Method: Phone call Type: Outbound Duration (min): 6 Outcome: Case discussion Contact Type: patient relations coordinator Contact Name: Puneet Mcelroy Notes: TCM#3-wgt, spoke with spouse, Nicki for tcm call status update, see ft summary note. Created By: Puneet Mcelroy Date: July 14, 2023 Method: Phone call Type: Inbound Duration (min): 2 Outcome: Case discussion Contact Type: Spouse Contact Name: Nicki Notes: TCM#2/wgt- Spoke with spouse Nicki for TCM/wgt, see ft summary note. Crea (more content not included)... Normal [facility] Lab Reportson 07-30-2023 Lab Reports [id number] IFF Normal [facility] Healthon 07-29-19 [facility] Case Information Case Priority: None Programs: -- Referral Source: District Resource Officer Referral Reason: Care coordination Case Type: Transition Care Management Risk Score: -- Case Status: Enrolled (July 11, 2023) Date Assigned: July 11, 2023 Assigned By: Puneet Mcelroy Date Enrolled: July 11, 2023 Assigned Primary Personnel: Puneet Mcelroy Assigned Secondary Personnel: -- Case Physician: Álvaro Barton MD Ongoing AP (angina pectoris) 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 Chronic kidney disease, stage 4 (severe) Chronic respiratory failure with hypoxia Chronic systolic congestive heart failure [facility] discharge follow-up Immunodeficiency due to drugs Kidney cysts Microscopic hematuria Mixed hyperlipidemia Morbid obesity Myelodysplastic syndrome Primary hypertension Pulmonary HTN Type 2 diabetes mellitus with diabetic nephropathy, without long-term current use of insulin Type 2 diabetes mellitus with hyperlipidemia Urge incontinence Urinary urgency Historical Renal failure Procedure/Surgical History cysto/ud, bilateral RG Pyelogram (10/23/2011), Cataract care, Placement of stent in cardiac conduit. Home Medications aspirin 81 mg Oral EC Tab, 81 mg= 1 tab(s), Oral, Daily atorvastatin 20 mg Tab, 20 mg= 1 tab(s), Oral, Daily, 1 refills bumetanide 2 mg Tab, 1 mg= 0.5 tab(s), Oral, Daily, 1 refills Farxiga 10 mg oral tablet, 10 mg= 1 tab(s), Oral, Daily, 1 refills febuxostat, 40 mg, Oral, Daily Freestyle Carmen 2 Flash Glucose Monitoring 14 Day System (Sensor), See Instructions Freestyle Carmen Flash 2 Glucose Monitoring 14 Day System (Thermal), See Instructions glipiZIDE 5 mg ER Tab, 5 mg= 1 tab(s), Oral, BID, 1 refills lisinopril 2.5 mg Tab, 2.5 mg= 1 tab(s), Oral, Daily metoprolol 25 mg ER Tab, 12.5 mg= 0.5 tab(s), Oral, Daily, 1 refills Misc DME Prescription, See Instructions omeprazole 40 mg Cap-DR, 40 mg= 1 cap(s), Oral, Daily, 1 refills spironolactone 25 mg Tab, See Instructions terazosin 5 mg Cap, See Instructions Vitamin D3 1000 intl units oral tablet, 1000 International_Unit= 1 tab(s), Oral, Daily Allergies carvedilol (Hives) metoprolol (hives) Social History [...] Goals and Interventions Care Plan Progress Note TCM#5- Spoke with spouse Nicki, states patient is doing good. Had follow up with Dr. Machado today and hemoglobin was low, 6.2. He is scheduled for a transfusion in the morning at 8am. Patient does have fatigue and SOB with a lot of exertion. was upset due to delay in recieving recent lab results ordered per Cardio. Notes patient is sleeping good. denies any edema or weight gain. Denies need for medication refills. Denies any further questions or concerns. Communication Events Date: July 29, 2023 Method: Phone call Type: Outbound Duration (min): 12 Outcome: Case discussion Contact Type: patient relations coordinator Contact Name: Puneet Mcelroy Notes: TCM#5- spoke with spouse, see ft summary note. Created By: Puneet Mcelroy Date: July 22, 2023 Method: Phone call Type: Outbound Duration (min): 2 Outcome: Case discussion Contact Type: patient relations coordinator Contact Name: Puneet Mcelroy Notes: TCM##4-wgt- Spoke with spouse Nicki for TCM/wgt progrtam call status update, see ft sumamry note. Created By: Puneet Mcelroy Date: July 17, 2023 Method: Phone call Type: Outbound Duration (min): 6 Outcome: Case discussion Contact Type: patient relations coordinator Contact Name: Puneet Mcelroy Notes: TCM#3-wgt, spoke with spouse, Nicki for tcm call status update, see ft summary note. [...] (min): 1 Outcome: Left message-voicemail Contact Type: patient relations coordinator Contact Name: Puneet Mcelroy Notes: TCM#2/wgt check- Attempted to contact patient for TCM/wgt status update, no answer, LM for retturn call. Created By: Puneet Mcelroy Date: July 11, 2023 Method: Phone call Type: Outbound Duration (more content not included)... [facility] Retail - Clinical Noteon Retail - Clinical Note [id number] IFF Normal [facility] Population Healthon 07-22-20 Population Health Case Information Case Priority: None Programs: -- Referral Source: District Resource Officer Referral Reason: Care coordination Case Type: Transition [...] Chronic kidney disease, stage 4 (severe) Chronic respiratory failure with hypoxia Chronic systolic congestive heart failure [facility] discharge follow-up Immunodeficiency due to drugs Kidney cysts Microscopic hematuria Mixed hyperlipidemia Morbid obesity Myelodysplastic syndrome Primary hypertension Pulmonary HTN Type 2 diabetes mellitus with diabetic nephropathy, without long-term current use of insulin Type 2 diabetes mellitus with hyperlipidemia Urge incontinence Urinary urgency Historical Renal failure Procedure/Surgical History cysto/ud, bilateral RG Pyelogram (10/23/2011), Cataract care, Placement of stent in cardiac conduit. Home Medications aspirin 81 mg Oral EC Tab, 81 mg= 1 tab(s), Oral, Daily atorvastatin 20 mg Tab, 20 mg= 1 tab(s), Oral, Daily, 1 refills bumetanide 2 mg Tab, 1 mg= 0.5 tab(s), Oral, Daily, 1 refills Farxiga 10 mg oral tablet, 10 mg= 1 tab(s), Oral, Daily, 1 refills febuxostat, 40 mg, Oral, Daily Freestyle Carmen 2 Flash Glucose Monitoring 14 Day System (Sensor), See Instructions Freestyle Carmen Flash 2 Glucose Monitoring 14 Day System (Thermal), See Instructions glipiZIDE 5 mg ER Tab, 5 mg= 1 tab(s), Oral, BID, 1 refills lisinopril 2.5 mg Tab, 2.5 mg= 1 tab(s), Oral, Daily metoprolol 25 mg ER Tab, 12.5 mg= 0.5 tab(s), Oral, Daily, 1 refills Misc DME Prescription, See Instructions omeprazole 40 mg Cap-DR, 40 mg= 1 cap(s), Oral, Daily, 1 refills spironolactone 25 mg Tab, See Instructions terazosin 5 mg Cap, See Instructions Vitamin D3 1000 intl units oral tablet, 1000 International_Unit= 1 tab(s), Oral, Daily Allergies carvedilol (Hives) metoprolol (hives) Social History [...] Goals and Interventions Care Plan Progress Note TCM#4-wgt check- Spoke with patient spouse Nicki, states patient is doing good. Had blood work completed fir cardiology on 07/18. reports his wgt is stable, no issues or concerns at this time. Denies need for refills. Denies any further questions or concerns. Communication Events Date: July 22, 2023 Method: Phone call Type: Outbound Duration (min): 2 Outcome: Case discussion Contact Type: patient relations coordinator Contact Name: Puneet Mcelroy Notes: TCM##4-wgt- Spoke with spouse Nicki for TCM/wgt progrtam call status update, see ft sumamry note. Created By: Puneet Mcelroy Date: July 17, 2023 Method: Phone call Type: Outbound Duration (min): 6 Outcome: Case discussion Contact Type: patient relations coordinator Contact Name: Puneet Mcelroy Notes: TCM#3-wgt, spoke with spouse, Nicki for tcm call status update, see ft summary note. [...] (min): 1 Outcome: Left message-voicemail Contact Type: patient relations coordinator Contact Name: Puneet Mcelroy Notes: TCM#2/wgt check- Attempted to contact patient for TCM/wgt status update, no answer, LM for retturn call. Created By: Puneet Mcelroy Date: July 11, 2023 Method: Phone call Type: Outbound Duration (min): 8 Outcome: Case discussion Contact Type: patient relations coordinator Contact Name: Puneet Mcelroy Notes: TCM#1- Spoke with spouse for initial TCM program call status update, see ft summary note. Created By: Puneet Mcelroy [facility] Office Visiton 07-17-2023 Follow-up visit [id number] DonisSandip Brynn 1940 M Date Provider Department Center 07/17/2023 Omid-RAYO QUINTERO C[facility] [place] [facility] Family History Problem Relation Age of Onset Hypertension Mother Stroke Father Breast cancer Sister Family Status - Relation Status Age at Mother Father Sister Level of Service:01564 LA OFFICE/OUTPATIENT ESTABLISHED MOD MDM 30 MIN Reason for Visit and Comments: Hospital Follow-up [832] Normal [facility] Population Health 07-17-20 [facility] Health Case Information Case Priority: None Programs: -- Referral Source: District Resource Officer Referral Reason: Care coordination Case Type: Transition Care Management Risk Score: -- Case Status: Enrolled (July 11, 2023) Date Assigned: July 11, 2023 Assigned By: Puneet Mcelroy Date Enrolled: July 11, 2023 Assigned Primary Personnel: Puneet Mcelroy Assigned Secondary Personnel: -- Case Physician: Álvaro Barton MD Ongoing AP (angina pectoris) 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 Chronic kidney disease, stage 4 (severe) Chronic respiratory failure with hypoxia Chronic systolic congestive heart failure [facility] discharge follow-up Immunodeficiency due to drugs Kidney cysts Microscopic hematuria Mixed hyperlipidemia Morbid obesity Myelodysplastic syndrome Primary hypertension Pulmonary HTN Type 2 diabetes mellitus with diabetic nephropathy, without long-term current use of insulin Type 2 diabetes mellitus with hyperlipidemia Urge incontinence Urinary urgency Historical Renal failure Procedure/Surgical History cysto/ud, bilateral RG Pyelogram (10/23/2011), Cataract care, Placement of stent in cardiac conduit. Home Medications aspirin 81 mg Oral EC Tab, 81 mg= 1 tab(s), Oral, Daily atorvastatin 20 mg Tab, 20 mg= 1 tab(s), Oral, Daily, 1 refills bumetanide 2 mg Tab, 1 mg= 0.5 tab(s), Oral, Daily, 1 refills Farxiga 10 mg oral tablet, 10 mg= 1 tab(s), Oral, Daily, 1 refills febuxostat, 40 mg, Oral, Daily Freestyle Carmen 2 Flash Glucose Monitoring 14 Day System (Sensor), See Instructions Freestyle Carmen Flash 2 Glucose Monitoring 14 Day System (Thermal), See Instructions glipiZIDE 5 mg ER Tab, 5 mg= 1 tab(s), Oral, BID, 1 refills lisinopril 2.5 mg Tab, 2.5 mg= 1 tab(s), Oral, Daily metoprolol 25 mg ER Tab, 12.5 mg= 0.5 tab(s), Oral, Daily, 1 refills Misc DME Prescription, See Instructions omeprazole 40 mg Cap-DR, 40 mg= 1 cap(s), Oral, Daily, 1 refills spironolactone 25 mg Tab, See Instructions terazosin 5 mg Cap, See Instructions Vitamin D3 1000 intl units oral tablet, 1000 International_Unit= 1 tab(s), Oral, Daily Allergies carvedilol (Hives) metoprolol (hives) Social History [...] Goals and Interventions Care Plan Progress Note TCM#3-wgt check- Spoke with spouse Nicki, reports patient wgt continues to come down, wgt today 194.4 BP 97/49, HR 69, SPO2 97%. Spouse denies patient having edema or SOB. Denies any further questions or concerns at this time. Communication Events Date: July 17, 2023 Method: Phone call Type: Outbound Duration (min): 6 Outcome: Case discussion Contact Type: patient relations coordinator Contact Name: Puneet Mcelroy Notes: TCM#3-wgt, spoke with spouse, Nicki for tcm call status update, see ft summary note. [...] (min): 1 Outcome: Left message-voicemail Contact Type: patient relations coordinator Contact Name: Puneet Mcelroy Notes: TCM#2/wgt check- Attempted to contact patient for TCM/wgt status update, no answer, LM for retturn call. Created By: Puneet Mcelroy Date: July 11, 2023 Method: Phone call Type: Outbound Duration (min): 8 Outcome: Case discussion Contact Type: patient relations coordinator Contact Name: Puneet cMelroy Notes: TCM#1- Spoke with spouse for initial TCM program call status update, see ft summary note. Created By: Puneet Mcelroy [facility] ED Note-Physicianon 07-16-20 23 ED Note-Physician [id number]#1.00T IFF Normal [facility] Outside Hospital Correspo ndenceon 07-16-2023 Outside [facility] Correspondence [id number]#1.00T IFF Normal [facility] Physician Referralon 023 Physician Referral [id number]#1.00 TIFF Normal [facility] RAD - MISCon 07-16-2023 RAD - MISC [id number]#1.00T IFF Normal [facility] Family Medicine Office/Clini c Noteon 07-15-2023 Family Medicine Office/Clinic Note HPI Staff Cordoba is an 82 year old male presenting for follow up anemia Hospital: [place] Admission date: 07/08 Discharge date: Symptoms the [...] documented 3008F (more content not included)... Normal [facility] Comment on above: Result Comment: Elec [...] numbers. This can be done either in [place] ([place] or metric measurements. Note that charts and online BMI calculators are available to help you find your BMI quickly and easily without having to do these calculations yourself. To calculate your BMI in [place] ([place] measurements: 1. Measure your weight in [...] for Disease Control and Prevention: www.cdc.gov ? [place] Heart Association: www.heart.org ? National Heart, Lung, and Blood [place]: www.nhlbi.nih.gov Summary ? Body mass index (BMI) is a number that is calculated from a person's weight and height. ? BMI may help estimate how much of a person's weight is composed of fat. BMI can help identify those who may be at higher risk for certain medical problems. ? BMI can be measured using [place]ian measurements or metric measurements. ? BMI charts are used to identify whether you are underweight, normal weight, overweight, or obese. This information is not intended to replace advice given to you by your health care provider. Make sure you discuss any questions you have with your health care provider. Document Revised: 04/05/2020 Document Reviewed: 02/11/2020 [employer] Patient Education ? 2022 [employer]. [facility] 07-14-20 Population Health Case Information Case Priority: None Programs: -- Referral Source: District Resource Officer Referral Reason: Care coordination Case Type: Transition Care Management Risk Score: -- Case Status: Enrolled (July 11, 2023) Date Assigned: July 11, 2023 Assigned By: Puneet Mcelroy Date Enrolled: July 11, 2023 Assigned Primary Personnel: Puneet Mcelroy Assigned Secondary Personnel: -- Case Physician: Álvaro Barton MD Ongoing AP (angina pectoris) Bone marrow failure [...] refills, Still taking, not as prescribed: Per [facility] D/C 07/10, patient to take 1 mg QAM colchicine 0.6 mg Tab, 0.6 mg= 1 tab(s), Oral, TID, 1 refills, Not taking: per [facility] d/c 07/10, do not take Farxiga 10 mg oral tablet, 10 mg= 1 tab(s), Oral, Daily, 1 refills febuxostat, 40 mg, Oral, Daily Freestyle Carmen 2 Flash Glucose Monitoring 14 Day System (Sensor), See Instructions Freestyle Carmen Flash 2 Glucose Monitoring 14 Day System (Thermal), See Instructions glipiZIDE 5 mg ER Tab, 5 mg= 1 tab(s), Oral, BID, 1 refills lisinopril 10 mg Tab, See Instructions, Still taking, not as prescribed: per [facility] d/c 07/10, dose decreased, take 2.5 mg QD metolazone 2.5 mg Tab, 2.5 mg= 1 tab(s), Oral, Daily, 1 refills, Not taking: per [facility] d/c 07/10- do not take metoprolol 25 mg ER Tab, 12.5 mg= 0.5 tab(s), Oral, Daily, 1 refills Misc DME Prescription, See Instructions omeprazole 40 mg Cap-DR, 40 mg= 1 cap(s), Oral, Daily, 1 refills Potassium Chloride (Kek-Roke-Sux M20) 20 mEq oral tablet, extended release, 20 mEq= 1 tab(s), Oral, BID, 1 refills, Not taking: per [facility] d/c 07/10, do not take spironolactone [...] (min): 1 Outcome: Left message-voicemail Contact Type: patient relations coordinator Contact Name: Puneet Mcelroy Notes: TCM#2/wgt check- Attempted to contact patient for TCM/wgt status update, no answer, LM for retturn call. Created By: Puneet Mcelroy Date: July 11, 2023 Method: Phone call Type: Outbound Duration (min): 8 Outcome: Case discussion Contact Type: patient relations coordinator Contact Name: Puneet Mcelroy Notes: TCM#1- Spoke with spouse for initial TCM program call status update, see ft summary note. Created By: Puneet Mcelroy [facility] Pre-Visit Planningon 023 Pre-Visit Planning - From: Karen Frye To: Álvaro Barton MD; Sent: 07/11/2023 11:03:29 EST Subject: Pre-Visit Planning Due Date/Time: 07/11/2023 11:03:00 EST Caller Name: SANDIP BROUSSARD; Caller Number: , Mt Dr. Barton. During a pre-visit planning chart [...] feel free to contact me at extension [phone]. Thank you! Karen Frye LPN From: Álvaro Barton MD To: Karen Frye; Sent: 07/14/2023 12:29:52 EST Subject: RE: Pre-Visit Planning Caller Name: SANDIP BROUSSARD; Caller Number: H , -Immunodeficiency due to drugs Normal [address] [place] [address] Pre-Visit Planning - From: Karen Frye To: Álvaro Barton MD; Sent: 07/11/2023 10:52:44 EST Subject: Pre-Visit Planning Due Date/Time: 07/11/2023 10:52:00 EST Caller Name: SANDIP BROUSSARD; Caller Number: H , Mt Dr. Barton. During a pre-visit planning chart [...] feel free to contact me at extension [phone]. Thank you! Karen Frye LPN From: Álvaro Barton MD To: Karen Frye; Sent: 07/14/2023 12:28:56 EST Subject: RE: Pre-Visit Planning Caller Name: SANDIP BROUSSARD; Caller Number: H , -Chronic respiratory failure with hypoxia Normal [address] [place] [address] Pre-Visit Planning - From: Karen Frye To: Álvaro Barton MD; Sent: 07/11/2023 10:36:38 EST Subject: Pre-Visit Planning Due Date/Time: 07/11/2023 10:36:00 EST Caller Name: SANDIP BROUSSARD; Caller Number: H , Mt Dr. Barton. During a pre-visit planning chart [...] SANDIP BROUSSARD; Caller Number: Kofi , M -Morbid obesity Normal [address] [facility] Population [facility] 07-11-20 Population Health Case Information Case Priority: None Programs: -- Referral Source: District Resource Officer Referral Reason: Care coordination Case Type: Transition Care Management Risk Score: -- Case Status: Enrolled (July 11, 2023) Date Assigned: July 11, 2023 Assigned By: Puneet Mcelroy Date Enrolled: July 11, 2023 Assigned Primary Personnel: Puneet Mcelroy Assigned Secondary Personnel: -- Case Physician: Álvaro Barton MD Ongoing AP (angina pectoris) Bone marrow failure [...] refills, Still taking, not as prescribed: Per [facility] D/C 07/10, patient to take 1 mg QAM colchicine 0.6 mg Tab, 0.6 mg= 1 tab(s), Oral, TID, 1 refills, Not taking: per [facility] d/c 07/10, do not take Farxiga 10 mg oral tablet, 10 mg= 1 tab(s), Oral, Daily, 1 refills febuxostat, 40 mg, Oral, Daily Freestyle Carmen 2 Flash Glucose Monitoring 14 Day System (Sensor), See Instructions Freestyle Carmen Flash 2 Glucose Monitoring 14 Day System (Thermal), See Instructions glipiZIDE 5 mg ER Tab, 5 mg= 1 tab(s), Oral, BID, 1 refills lisinopril 10 mg Tab, See Instructions, Still taking, not as prescribed: per [facility] d/c 07/10, dose decreased, take 2.5 mg QD metolazone 2.5 mg Tab, 2.5 mg= 1 tab(s), Oral, Daily, 1 refills, Not taking: per [facility] d/c 07/10- do not take metoprolol 25 mg ER Tab, 12.5 mg= 0.5 tab(s), Oral, Daily, 1 refills Misc DME Prescription, See Instructions omeprazole 40 mg Cap-DR, 40 mg= 1 cap(s), Oral, Daily, 1 refills Potassium Chloride (Tuu-Wadg-Sns M20) 20 mEq oral tablet, extended release, 20 mEq= 1 tab(s), Oral, BID, 1 refills, Not taking: per [facility] d/c 07/10, do not take spironolactone [...] f/u with PCP, Dr. Barton 07/15 @ 7377 Did you understand your discharge instructions? yes [...] with patient: (more content not included)... Normal [facility] 36on 05-28-2023 36 Wrong dosage [facility] [id number]#1.00T IFF Normal [facility] Family Medicine Office/Clini c Noteon 04-21-2023 Family [...] His last blood transfusion was today at [facility]. He was seen by his oncologist last week and the week before. He is seeing Dr. Humphrey in [place]. His oncologist is keeping him on a [...] with voice recognition artificial intelligence software, specifically TheraVida, [employer] Neurostim and or Nomi. Substitutions may have occurred due to the inherent limitations of voice recognition and artificial intelligence software. ATTESTATION: Documentation services were performed after patient or guardian consented to allow [employer] to record this visit. VIRGEN storage specialist and provider reviewed before signing. VIRGEN: [...] Historical No (more content not included)... Normal [facility] Comment on above: Result Comment: Elec tronically Signed By: Álvaro Barton MD\.br\Date and Time Signed: 04/21/23 10:37 EDT\.br\Electronically Co-Signed By: Itzel Morrow\.br\Date and Time Co-Signed: 04/16/23 16:56 EDT Consent for Flu Vaccineon Consent for Flu Vaccine [id number]#1.00C D:[address] [facility] Ambulatory Visit Summaryon 0 04-16-2023 Ambulatory Visit [...] Flash 2 Glucose Monitoring 14 Day System (Thermal)) Misc Prescription (Misc DME Prescription) aspirin (aspirin [...] 40 mg Cap-DR) potassium chloride (Potassium Chloride (Vbl-Fjuf-Gdy M20) 20 mEq oral tablet, extended release) [...] Follow-Up Appointments Friday 3:00 PM EST With: Mick SEN, Álvaro Davies Where: [facility] Normal [address] [address]- \.br\ Medications\.br\ What How Much When Why Instructions\.br\ Unchanged aspirin (aspirin 81 mg Oral EC [...] Flash 2 Glucose Monitoring 14 Day System (Thermal)) See instructions Primary hypertension Type 2 diabetes mellitus with diabetic nephropathy, without long-term current use of insulin Mixed hyperlipidemia Bone marrow failure Freestyle Carmen Flash Glucose Monitoring 14 Day System (Thermal) \.br\ Unchanged Misc Prescription (Misc DME Prescription) See instructions One touch ultra blue test strips Use as directed to test sugars once a day \.br\ Unchanged omeprazole (omeprazole 40 mg Cap-DR) 1 Capsules By Mouth Every day\.br\ Unchanged potassium chloride (Potassium Chloride (Nzz-Zwba-Wad M20) 20 mEq oral tablet, extended release) [...] (angina pectoris)\.br\ Bone marrow failure\.br\ BPH without obstruction/lower urinary tract symptoms\.br\ Chronic systolic congestive heart failure\.br\ Follicular impetigo\.br\ Kidney cysts\.br\ Microscopic hematuria\.br\ Mixed hyperlipidemia\.b r\ Primary hypertension\.br\ Pulmonary HTN\.br\ Renal failure\.br\ Type 2 diabetes mellitus with diabetic nephropathy, without long-term current use of insulin\.br\ Urge incontinence\.br\ Urinary urgency\.br\ \.br\ [facility] 04-07-2023 Outside Labs [id number]#1.00C D:127 Normal [facility] 03-20-2023 Outside Labs [id number]#1.00C D:127 Normal [facility] Physician Orderon 03-19-2023 Physician Order [id number]#1.00 CD:127 Normal [facility] .Interpretation:on 3 HCV Ab IA Ql Comment Invalid Interpretation Code [facility] Comment on above: Result Comment: Not infected with HCV unless early or acute infection is suspected (which may be delayed in an immunocompromised individual), or other evidence exists to indicate HCV infection. Performed at: [facility] [id number] PhD Mingo Mckeon Performed By: #### 2 [id number], [id number], 7402078, 2261584711, 0852966552, 984465248, 6128272, 8509836716, 8480151, 9214653, 9045819, 1989059440, 3270950, 1756027, 1795909, 65554797, 5890505, 632628155, 4738947287, 95060429, 4080913, 2091903, [id number] ####[address] [place] [address] Comp panel: Leuk/Lym [id number] n 03-18-2023 Analysis and Gating Strategy Comment Invalid Interpretation Code [facility] Comment on above: Result Comment: 8 co tete analysis with CD45/SSC gating Technical-[place] [address] Director: RAFAEL Rolon Performed By: #### 2 [id number], [id number], 0382730, 7748496194, 3220581789, 324356394, 8717148, 9355605730, 7242396, 6969476, 5587817, 4175897338, 0961166, 6366536, 8925730, 55295622, 7927017, 092710911, 0516375274, 65965174, 2632380, 0643288, 1099544201 ####[address] [place] [address] Annotation comment [Interpretation] Narrative Comment Invalid Interpretation Code [facility] Comment on above: Result Comment: If m onocytosis (absolute count >= 500/uL and >= 10% of leukocytes) persists for > 3 months without secondary etiologies identified, further evaluation of a myeloid neoplasm, such as chronic myelomonocytic leukemia, is warranted if clinically indicated. Recommend clinical correlation. Performed By: #### 2 [id number], [id number], 5822859, 5712942562, 8020976876, 887316620, 9022233, 3861797619, 5691678, 6696190, 5414351, 4221769780, 3228349, 9451117, 2477867, 38000082, 5772575, 777421560, 3502885612, 64537307, 2022074, 3799580, 6654347478 ####[facility] [address] [place] [address] Assessment of Leukocytes Comment Invalid Interpretation Code [facility] Comment on above: Result Comment: No m [...] NK cells 22% Performed By: #### 2 [id number], 6205007875, 7747919, 8381598529, 6897694157, 317412226, 7750194, 2867725217, 1923347, 4862343, 8615113, 4649799328, 5038987, 5489311, 8425597, 37428329, 5823026, 623817299, 2432299705, 01226087, 9463349, 8753009, 9676068874 ####[facility] [address] [place] [address] CLINICAL INFORMATION:FIND:PT : Comment Invalid Interpretation Code [facility] Comment on above: Result Comment: A re cent CBC was not available for review at the time this report was prepared. Performed By: #### 2 [id number], 1354503882, 2356754, 3114457525, 5455317496, 793579198, 9996776, 7140221385, 8345704, 4917703, 4982754, 1958895575, 1843417, 6167291, 5599298, 98823879, 9982571, 002840598, 2347186092, 73543040, 2527481, 9123801, 0164631851 ####[facility] [address] [place] [address] Immunophenotyping study Comment Invalid Interpretation Code [facility] Comment on above: Result Comment: CD2 Normal CD3 Normal CD4 Normal CD5 Normal CD7 Normal CD8 Normal CD10 Normal CD11b Normal CD13 Normal CD14 Normal CD16 Normal CD19 Normal CD20 Normal CD33 Normal CD34 Normal CD38 Normal CD45 Normal CD56 See Text CD57 Normal CD117 Normal HLA-DR Normal KAPPA Normal LAMBDA Normal CD64 Normal Performed By: #### 2 [id number], 5247443192, 1516042, 3934848812, 9294531450, 280624074, 6277870, 9267346611, 2625931, 1680051, 8840711, 3013885867, 6435753, 9973001, 7534093, 82195153, 9090217, 910715218, 3952449893, 19816779, 7078876, 1211662, 1834459076 ####[facility] [address] [place] [address] Laboratory comment Edmundo (Report) Comment Invalid Interpretation Code [facility] Comment on above: Result Comment: Each antibody in this assay was utilized to assess for potential abnormalities of studied cell populations or to characterize identified abnormalities. This test was developed and its performance characteristics determined by [employer]. It has not been cleared or approved by the U.S. Food and Drug Administration. The FDA has determined that such clearance or approval is not necessary. This test is used for clinical purposes. It should not be regarded as investigational or for research. Performed at: -Y [facility] [address] [place], [place] [id number] [facility] Silvio Gonzalez Performed at: TG [facility] [address] [facility], [place] [id number] [facility] Silvio Gonzalez Performed By: #### 2 [id number], 9769107456, 3734981, 0262757463, 7441070766, 494715478, 4125626, 9147782903, 7708032, 6071379, 0007987, 6227764076, 0851718, 5150358, 9274193, 00376929, 6016375, 794739233, 5224426962, 77929956, 1474187, 7762676, [id number] ####[address] [place] [address] Pathologist interpretation (Unsp spec) [Interp] Comment Invalid Interpretation Code [facility] Comment on above: Result Comment: Sid ramirezt monocytosis and left shifted neutrophils, see comment. Performed By: #### 2 [id number], 5327911361, 1383802, 1451713752, 3059927671, 544353282, 3035231, 3587183943, 3900307, 1129518, 3492453, 6823101755, 0002141, 6407999, 4669167, 31812491, 3372746, 413492799, 4077029653, 57304620, 7209739, 2533645, 5723277687 ####[address] [address] Pathologist name Comment Invalid Interpretation Code [facility] Comment on above: Result Comment: Esdras Alexandra M.D. Performed By: #### 2 [id number], 8781182709, 7673862, 9058010730, 4026898222, 094856750, 6651909, 1188341775, 2687195, 6025824, 9392968, 4942714563, 5039546, 4346652, 3063016, 24535100, 8425051, 638161374, 0353734124, 93981653, 6603872, 3916940, 0758498199 ####[address] [place] [id number] Specimen source Nom (Unsp spec) Comment Invalid Interpretation Code [facility] Comment on above: Result Comment: Joo pheral blood Performed By: #### 2 [id number], 4157581176, 9773516, 6305852894, 5257621368, 207785223, 3821342, 2213599909, 8153761, 7940621, 2670305, 3927323718, 1167445, 8424445, 3206189, 12544329, 4367516, 497958579, 1831999761, 00622145, 1951765, 1178810, 8717400100 ####[facility] [address] [place] [address] Viable cells/100 cells (Unsp spec) Comment Invalid Interpretation Code [facility] Comment on above: Result Comment: 84% Performed By: #### 2 [id number], 4591624620, 1637026, 5193418921, 4407631606, 425767896, 8408342, 0633960876, 2874731, 2115649, 9428377, 8642023951, 4742167, 0009962, 5127055, 82847350, 5366125, 719321014, 9790167821, 94409893, 7210725, [id number], [id number] ####[facility] [address] [place] [address] Copper Lvlon 03-18-2023 Copper [Mass/Vol] 73 microgram/dL Invalid Interpretation Code 69-132 [facility] Comment on above: Result Comment: This test was developed and its performance characteristics determined by [employer]. It has not been cleared or approved by the Food and Drug Administration. Detection Limit = 5 Performed at: [facility] [address] [place], [place] [id number] MD Ronaldo Dao Performed By: #### 2 [id number], 9948129561, 9810215, 0072858694, 3378483334, 587628443, 2731906, 4685826234, 9884260, 8788718, 7919427, 1922808017, 6302665, 4523892, 3955637, 85936934, 9857435, 097053779, 3314563750, 08584889, 6124108, 8853442, 3077838233 ####[facility] [address] [place] [address] Flow Interp 16 or moreon Flow Interp 16 or more Performed Invalid Interpretation Code [facility] Comment on above: Result Comment: Perf ormed at: -Y [facility] [address] [facility] [place] [id number] [facility] Chenn Anjen Performed By: #### 2 [id number], 5469277754, 4138315, 9135893284, 4654473166, 838742621, 8912001, 5287746290, 9629575, 4553560, 2417055, 1871452157, 0655753, 6026318, 5263397, 23827637, 6776331, 638572744, 5456085141, 11376877, 4023672, 4829993, 6997508547 ####[facility] [address] [place] [address] Flow Marker, Firston 023 Flow Marker, First Performed Invalid Interpretation Code [facility] Comment on above: Result Comment: Perf ormed at: -Y [facility] [address] [facility] [place] [id number] [id number] [facility] Clementinan Anjen Performed By: #### 2 117748996, 6629643553, 4259708, 6832033685, 7299666344, 125864463, 5153110, 8966210076, 7615987, 9609160, 1278542, 0754883389, 2172808, 5875678, 9987730, 83302732, 0186116, 653958200, 7624155115, 54407673, 5072233, 6884315, 1253243279 ####[facility] [address] [place] [address] Flow Markers X 15on 03-18-20 23 Flow Markers X 15 Performed Invalid Interpretation Code [facility] Comment on above: Result Comment: Perf ormed at: -Y [facility] [address] [employer] [place] [id number] [id number] [facility] Chenn Anjen Performed By: #### 2 278886124, 0553841391, 7969350, 9935125023, 5315049391, 613720824, 9254066, 2173833658, 9084484, 4688395, 3602123, 8152622827, 2200171, 7217705, 6066544, 36929056, 0893657, 481054921, 6585877203, 79232344, 0205133, 8875413, 7266221418 ####[facility] [address] [place] [address] Flow Markers X 3on 3 Flow Markers X 3 Performed Invalid Interpretation Code [facility] Comment on above: Result Comment: Perf ormed at: -Y [facility] [address] [facility] [place] [id number] [facility] Chenn Anjen Performed By: #### 2 424221501, 7531946778, 7677138, 1623336396, 8488580960, 333168448, 5901024, 0539060853, 3830242, 4905129, 6026433, 2250142092, 3959909, 1192201, 9291814, 87137685, 8738349, 625483484, 9562473303, 94042513, 1561397, 6065503, 4385365139 ####[facility] [address] [place] [address] Flow Markers X 5on 3 Flow Markers X 5 Performed Invalid Interpretation Code [facility] Comment on above: Result Comment: Perf ormed at: -Y [facility] [address] [place] [id number] [id number] [facility] Chenn Anjen Performed By: #### 2 489870509, 8369179717, 7201433, 2906053025, 6048620628, 810971749, 0242149, 1861173215, 0418668, 3322023, 3213646, 6230679679, 5645595, 7809266, 0169751, 91488435, 0654512, 841806939, 9556622462, 21642186, 5113985, 3632005, 7114679967 ####[facility] [address] [place] [address] HCV Antibody RFX to Quant PC Zach 03-18-2023 HCV IgG IA Ql Non-Reactive Invalid Interpretation Code Non Reactive [facility] Comment on above: Result Comment: Perf ormed at: CB [facility] [place] [address] [place], [place] [id number] PhD Mingo Mckeon Performed By: #### 2 268835274, 7653485606, 1827973, 2997213550, 4116126004, 032396310, 6290227, 5280711075, 9004121, 7194459, 3122121, 4911039831, 0887336, 6677215, 5016455, 57298067, 6404955, 964485604, 7566541983, 63735711, 2497173, 0899205, 7484662353 ####[facility] [address] [place] [address] HIV Screen 4th Generation wR fxon 03-18-2023 HIV 1+2 Ab+HIV1 p24 Ag IA Ql Non-Reactive Invalid Interpretation Code Non Reactive [facility] Comment on above: Result Comment: HIV Negative HIV-1/HIV-2 antibodies and HIV-1 p24 antigen were NOT detected. There is no laboratory evidence of HIV infection. Performed at: [address] [id number] PhD Mingo Mckeon Performed By: #### 2 083136809, 3203534819, 0053361, 2971950180, 3373647053, 410998716, 9241666, 2992175498, 9475786, 5226694, 5175191, 8185778615, 8410458, 5375951, 6087202, 74742949, 8878226, 361327530, 5877958764, 87619661, 2532372, 1285368, 1985589455 ####[facility] [address] [place] [address] Hep A IgMon 03-18-2023 HAV IgM IA Ql Negative Invalid Interpretation Code Negative [facility] Comment on above: Result Comment: Perf ormed at: [address] [id number] PhD Mingo Mckeon Performed By: #### 2 400291462, 4066734366, 2107024, 3347995920, 0838162593, 478330778, 8715284, 3585645417, 9329430, 8387223, 1432031, 9581962406, 7187389, 6839345, 5492530, 04507673, 7162254, 063321927, 0925883244, 90274866, 8938011, 5414595, 1921754530 ####[address] [place] [address] Hep B Core Ab, IgMon 023 HBV core IgM IA Ql Negative Invalid Interpretation Code Negative [facility] Comment on above: Result Comment: Perf ormed at: [address] [id number] PhD Mingo Mckeon Performed By: #### 2 105745568, 4871400212, 0411072, 1686552765, 7112960425, 736011809, 0476971, 4954325907, 3678941, 9032675, 6771160, 0385254066, 3969280, 6026360, 1518688, 98665646, 3977942, 569723262, 3218539976, 45524415, 5556678, 7704683, 1136259375 ####[address] [address] Hep Bs Abon 03-18-2023 HBV surface Ab Ql (S) Non-Reactive Invalid Interpretation Code [facility] Comment on above: Result Comment: Non Reactive: Inconsistent with immunity, less than 10 mIU/mL Reactive: Consistent with immunity, greater than 9.9 mIU/mL Performed at: [facility] [address] [place], [place] [id number] PhD Mingo Mckeon Performed By: #### 2 511773935, 6945599679, 3905983, 5272820004, 2042913499, 598392972, 5034674, 8164487570, 9766271, 7911436, 0589684, 0991563650, 7178402, 4351325, 3334707, 10429883, 5269160, 824113946, 1558233336, 15325641, 8936207, 5662185, 1163605004 ####[facility] [address] [place] [address] Hep Bs Agon 03-18-2023 HBV surface Ag IA Ql Negative Invalid Interpretation Code Negative [facility] Comment on above: Result Comment: Perf ormed at: [facility] [address] [id number] PhD Mingo Mckeon Performed By: #### 2 682953975, 5336315707, 0370799, 0964430166, 3214728985, 476329109, 8794540, 3063239923, 3450676, 2185952, 2319207, 8022651918, 4355790, 2581264, 5775997, 50062674, 0120810, 566208537, 6944192050, 73730326, 7010946, 2522668, 2746354025 ####[facility] [address] [place] [address] Office Visiton 03-14-2023 Follow-up visit [id number] Sandip Broussard Brynn 1940 M Date Provider Department Center 03/14/2023 SHENG BERGMAN Family History Problem Relation Age of Onset Hypertension Mother Stroke Father Breast cancer Sister Family Status - Relation Status Age at Mother Father Sister Level of Service:85867 LA OFFICE/OUTPATIENT ESTABLISHED LOW MDM 20-29 MIN Reason for Visit and Comments: Follow-up [748189] - 6 MONTH FOLLOW UP Normal [facility] Family Medicine Office/Clini c Noteon 03-13-2023 Family Medicine Office/Clinic Note Chief Complaint follow up chronic care, had medicare wellness today HPI Staff Patient here for 2 month follow up multiple medical problems Had medicare wellness this afternoon w/ Puneet Recently referred to [facility] oncology Puneet noted BP 100/50 [...] oncologist tomorrow, 03/11/2023, at 1:00 PM at [facility]. The patient needs glucose test strips. [...] with voice recognition artificial intelligence software, specifically [employer], [employer] and or Nomi. Substitutions may have occurred due to the inherent limitations of voice recognition and artificial intelligence software. ATTESTATION: Documentation services were performed after patient or guardian consented to allow [employer] to record this visit. [employer] storage specialist and provider reviewed before signing. [employer]: Dhevie Rigor/Pasted by Maria Ines Puente. Follow-up No [...] Flash 2 Glucose Monitoring 14 Day System (Thermal), See Instructions glipiZIDE 5 mg ER Tab, [...] cap(s), Oral, Daily, 1 refills Potassium Chloride (Icg-Dqia-Emr M20) 20 mEq oral tablet, extended release, 20 mEq= 1 tab(s), Oral, BID, 1 refills spironolact (more content not included)... Normal [facility] Comment on above: Result Comment: Elec tronically Signed By: Álvaro Barton MD\.br\Date and Time Signed: 03/13/23 12:59 EDT\.br\Electronically Co-Signed By: Maria Ines Puente\.br\Date and Time Co-Signed: 03/10/23 15:51 EDT Family [...] Present : No actual or suspected pain Meghna Vences LPN 03/10/2023 14:57 EDT Chief Complaint : follow up chronic care, had medicare wellness today Preferred Lab : [facility] Preferred Rad : [facility] Patient Counseled : Nutrition, Physical activity Height in Inches : 67 in Height/Length Measured : 170.2 cm(Converted to: 5 ft 7 in, 67.01 in) Meghna Vences LPN - 03/10/2023 14:47 EDT Depression Screening Little Interest, Pleasure in Activities (ref) : Not at all Feeling Down, Depressed, Hopeless : Not at all Initial Depression Screening Score : 0 Depression Screening Result : Negative Meghna Vences LPN - 03/10/2023 14:57 EDT Procedures / Surgeries - [...] 09/02/2019 13:05 EST - Kal HIGGINS, Sheila Swain 2x ; Last Reviewed Dt/Tm: 03/10/2023 14:48:04 [...] ability Delatorre Fall Risk Score : 0 Vangie LPNAliyahMeghna L - 03/10/2023 14:47 EDT Social Determinants (PRAPARE) What is your housing situation today? : I have housing You or Family Gone Without Household Needs Past Year : No No Transport to Med Appts/Meetings/Work/Med s/Necessities : No Afraid of Partner or Ex-partner [...] with keep (more content not included)... Normal [facility] Comment on above: Result Comment: Elec tronically Signed By: Álvaro Barton MD\.br\Date and Time Signed: 03/13/23 12:59 EDT\.br\Electronically Co-Signed By: Puneet Mcelroy.etienne\Date and Time Co-Signed: 03/10/23 15:23 EDT Consenton 03-12-2023 Consent [id number] D:127 Normal [facility] Physician Orderon 03-12-2023 Physician Order [id number]#1.00C D:127 Normal [facility] .Manual Abson 03-11-2023 Basophils/Leukocyte s Manual cnt (Bld) [Pure # fraction] 0.0 E9/L Normal 0.0-0.2 [facility] Comment on above: Performed By: #### 3 7821797, 5689416, 5267783, 8371888, 64284525 #### [facility] [address] [place] [address] Eosinophils/Leukocy jorge Manual cnt (Bld) [Pure # fraction] 0.1 E9/L Normal 0.0-0.5 [facility] Comment on above: Performed By: #### 3 7634415, 9173597, 0267181, 2423572, 16766681 #### [facility] [address] [place] [address] Lymphocytes/Leukocy jorge Manual cnt (Bld) [Pure # fraction] 1.4 E9/L Normal 1.0-4.0 [facility] Comment on above: Performed By: #### 3 0761422, 7893324, 9734190, 4623913, 52404077 #### [facility] [address] [place] [address] Monocytes/Leukocyte s Manual cnt (Bld) [Pure # fraction] 0.3 E9/L Normal 0.2-1.0 [facility] Comment on above: Performed By: #### 3 1024586, 8853482, 4493492, 0649498, 44711621 #### [facility] [address] [place] [address] Neutrophils/Leukocy jorge Auto (Bld) [Pure # fraction] 3.4 E9/L Normal 2.0-7.5 [facility] Comment on above: Performed By: #### 3 9479235, 8985987, 3863918, 6620505, 57464538 #### [facility] [address] [place] [address] BB Draw & Holdon 03-11-2023 BB D&H Sample drawn for Blo od Ba Normal [facility] Comment on above: Performed By: #### 3 5494267, 6431871, 6062723, 3089778, 86434226 ####[facility] [address] [place] [address] CBC w/ Auto Diffon Erythrocyte distribution width (RBC) [Ratio] 30.8 % High 10.9-14.2 [facility] Comment on above: Performed By: #### 3 3424078, 1129583, 8482785, 5565269, 70440778 #### [facility] [address] [place] [address] Hematocrit (Bld) [Volume fraction] 19.7 % Low 37.7-49.0 [facility] Comment on above: Performed By: #### 3 4433960, 0066344, 8705066, 6523779, 33052407 #### [facility] [address] [place] [address] Hemoglobin (Bld) [Mass/Vol] 6.7 g/dL Abnormal 13.5-17.5 [facility] Comment on above: Result Comment: Resu lts Called To Angle Mendoza/ ONC By GISELA And Read Back For Confirmation On 03/11/2023 17:00:17 EDT Results Verified By Repeat Analysis Performed By: #### 3 5738505, 5125463, 1567783, 9993714, 32799860 #### [facility] [address] [place] [address] MCH (RBC) [Entitic mass] 35.7 pg High 27.0-34.0 [facility] Comment on above: Performed By: #### 3 6702322, 0891509, 1559172, 3865779, 19487499 #### [facility] [address] [place] [address] MCHC (RBC) [Mass/Vol] 33.9 g/dL Normal 31.4-36.0 [facility] Comment on above: Performed By: #### 3 3546926, 1529869, 8240871, 3300656, 50590723 #### [facility] [address] [place] [address] MCV (RBC) [Entitic vol] 105.3 fL High 80.0-100.0 [facility] Comment on above: Performed By: #### 3 0625717, 3712735, 2764134, 8327424, 27529857 #### [facility] [address] [place] [address] Platelet mean volume (Bld) [Entitic vol] 12.4 fL High 6.4-10.8 [facility] Comment on above: Performed By: #### 3 3451400, 4388735, 1845761, 1073151, 90048956 #### [facility] [address] [place], [place] [address] Platelets (Bld) [#/Vol] 93.0 E9/L Low 150.0-500.0 [facility] Comment on above: Performed By: #### 3 7055450, 5205586, 0039298, 7529625, 36153519 #### [facility] [address] [place], [place] [address] RBC (Bld) [#/Vol] 1.9 E12/L Low 4.3-5.9 [facility] Comment on above: Performed By: #### 3 4993243, 3206446, 8071526, 1093970, 13478954 #### [facility] [address] [place] [address] WBC corrected for nucl RBC Auto (Bld) [#/Vol] 5.8 E9/L Normal 4.0-11.0 [facility] Comment on above: Performed By: #### 3 6353603, 5901181, 2165330, 1954905, 56934748 #### [facility] [address] [place] [address]33[address] CMPon 03-11-2023 Albumin [Mass/Vol] 3.9 g/dL Normal 3.3-5.0 [facility] Comment on above: Performed By: #### 2 497561428, 5912529310, 1946551, 7179040985, 2204030716, 976870806, 3148143, 8636712088, 7177128, 3995812, 9434253, 1381778603, 5375787, 9467226, 6372974, 67755432, 1054877, 751251633, 6835463393, 77840057, 2068666, 6946224, 9291955320 ####[address] [place] [address] Albumin/Globulin (S) [Mass conc ratio] 1.1 Normal 1.1-2.2 [facility] Comment on above: Performed By: #### 2 551636644, 7833031066, 2348633, 1143735602, 6306765699, 745709703, 4286186, 3008388586, 5311959, 3443830, 7457122, 5598788897, 8891692, 8371746, 1282463, 05874304, 7221567, 151734949, 9500029588, 02919912, 5660892, 1412947, 4854621741 ####[address] [address] ALP [Catalytic activity/Vol] 72 Int._Unit/L Normal 21-98 [facility] Comment on above: Performed By: #### 2 937088953, 4173715299, 0022970, 4855981412, 4698200988, 104919322, 2364429, 6140262557, 2561105, 4090615, 8855658, 0967050493, 8569217, 2760010, 5759102, 38159937, 0554556, 944285969, 8472899165, 92907993, 9275097, 0535930, 4676317824 ####[address] [address] ALT No additional P-5'-P [Catalytic activity/Vol] 96 Int._Unit/L High 6-46 [facility] Comment on above: Performed By: #### 2 409160629, 2854762454, 8361392, 3380609869, 8208669586, 684019093, 3317000, 4732437867, 6766841, 2451955, 9879033, 6993300558, 1369789, 8780759, 4362222, 25584500, 8270658, 769210916, 4510973792, 26998693, 3329045, 1244513, 5875666711 ####[facility] [address] [place] [address] Anion gap [Moles/Vol] 13 mmol/L Normal 6-16 [facility] Comment on above: Performed By: #### 2 396837087, 5594227468, 0311140, 8833758844, 8886006626, 094355886, 2801474, 4409002413, 9805162, 4977107, 9803012, 4308699036, 8557006, 9520786, 6042813, 14526180, 4687049, 554601678, 9590541603, 62731317, 6508182, 0478132, 9637591660 ####[address] [place] [address] AST [Catalytic activity/Vol] 39 Int._Unit/L Normal 5-43 [facility] Comment on above: Performed By: #### 2 118252992, 6783705160, 1450572, 2502971616, 8709622793, 166479718, 9428828, 4193728364, 3103880, 6718080, 3086376, 6971672603, 7726534, 8672501, 3272683, 27049015, 2089894, 691628484, 8995897498, 29501515, 2121571, 8029394, 6480299968 ####[facility] [address] [place] [address] Bilirubin [Mass/Vol] 0.7 mg/dL Normal 0.0-1.1 [facility] Comment on above: Performed By: #### 2 981942443, 2118975533, 0522217, 0923178167, 7154339041, 972433903, 0189979, 0026652983, 5464918, 9534251, 1197246, 1519025367, 1564716, 9386734, 0256708, 91454137, 0537558, 382692929, 2413647831, 54571564, 3221915, 8207506, 6815518644 ####[facility] [address] [place] [address] Calcium [Mass/Vol] 9.5 mg/dL Normal 8.9-11.1 [facility] Comment on above: Performed By: #### 2 021103554, 1001455375, 0646757, 0017182590, 1627727096, 151319401, 4630508, 5126634997, 4216701, 4359355, 6966096, 3572280277, 0998355, 7645871, 0474292, 52140859, 3133932, 566436440, 5834378481, 53856285, 9298098, 7222082, 0541698571 ####[address] [place] [address] Chloride [Moles/Vol] 102 mmol/L Normal 101-111 [facility] Comment on above: Performed By: #### 2 946152305, 5600483839, 8836557, 2770512345, 6265658967, 944633163, 9605914, 7219912664, 6608147, 8817655, 0755462, 5535212343, 5055618, 4926041, 2410348, 66378616, 8246261, 200612969, 9094800794, 14774998, 9022782, 8876084, 1695223597 ####[facility] [address] [place] [address] CO2 [Moles/Vol] 32 mmol/L High 21-31 [facility] Comment on above: Performed By: #### 2 079529696, 2091570673, 0616145, 3407366695, 2090079187, 970821321, 6456379, 4778013957, 6900571, 0765718, 7515343, 8343286057, 3001935, 4154186, 7181277, 47986908, 1036116, 335141318, 1034851283, 90471474, 4502272, 1518272, 0653588773 ####[facility] [address] [place] [address] Creatinine [Mass/Vol] 1.9 mg/dL High 0.5-1.3 [facility] Comment on above: Performed By: #### 2 504598957, 7110066625, 7492889, 3183595196, 1790389898, 433147957, 8611417, 7104162434, 0569546, 4205603, 9513734, 2642920083, 9352388, 4842175, 2016227, 16813841, 4877162, 563229292, 3074744484, 52261488, 5069707, 4049186, 8225227741 ####[address] [place] [address] Globulin (S) [Mass/Vol] 3.5 g/dL Normal 1.4-4.0 [facility] Comment on above: Performed By: #### 2 725254679, 2838168663, 3418235, 5937955917, 9506538803, 470485635, 0446701, 4069108889, 8891003, 3020335, 7745509, 6523677264, 7617794, 4012743, 4645999, 31669752, 1603117, 321566284, 4655793953, 14911028, 2606953, 0066723, 6478537791 ####[facility] [address] [place] [address] Glucose [Mass/Vol] 181 mg/dL Normal 55-199 [facility] Comment on above: Result Comment: If t his glucose result represents a fasting glucose, interpretation should refer to the following reference range: 55-99 mg/dL Performed By: #### 2 952764092, 2373848573, 0772544, 8934936140, 4391889824, 876209285, 0171121, 7944587689, 2997876, 3141931, 5325313, 9013905598, 8607055, 9386659, 1329527, 07510918, 5496460, 803725067, 5573913320, 81117022, 3491709, 6235946, 6982030885 ####[facility] [address] [place] [address] Potassium [Moles/Vol] 4.7 mmol/L Normal 3.5-5.3 [facility] Comment on above: Performed By: #### 2 007109106, 7227896111, 2393911, 9490038967, 7915993798, 764007864, 5193902, 6892239725, 5012929, 2338510, 1656950, 8174637177, 3987136, 7693870, 9362304, 54634898, 5000587, 033896984, 9961678163, 73332073, 1633708, 0794765, 5167297311 ####[address] [address] Protein [Mass/Vol] 7.4 g/dL Normal 6.0-7.8 [facility] Comment on above: Performed By: #### 2 930511667, 6901020385, 2796811, 2429335809, 6121825388, 932568037, 0438802, 8748361931, 5141516, 9157517, 7250048, 5407648754, 0260139, 7426598, 5997670, 57800096, 7514915, 494966359, 7803157883, 35214968, 5846512, 0838317, 2458650921 ####[address] [place] [address] Sodium [Moles/Vol] 142 mmol/L Normal 135-145 [facility] Comment on above: Performed By: #### 2 194567287, 6320009934, 3367861, 7383868285, 7188498547, 159993169, 4508643, 1319301501, 7972639, 3393441, 0160790, 0862560412, 7550423, 3252629, 2508127, 42496888, 5923665, 675004663, 5089722957, 29727310, 1982673, 7071593, 4429267189 ####[facility] [address] [place] [address] Urea nitrogen [Mass/Vol] 60 mg/dL High 5-21 [facility] Comment on above: Performed By: #### 2 903962032, 3646887493, 1566997, 2516883262, 4590306910, 572664588, 0708180, 2097626924, 0466182, 2587471, 6110869, 0724382875, 2511463, 2747146, 2523385, 27496843, 2537547, 879003175, 0925534457, 53506292, 3067542, 4362733, 6661041254 ####[address] [place] [address] Urea nitrogen/Creatinine [Mass ratio] 32 No Units High 10-20 [facility] Comment on above: Performed By: #### 2 337930591, 1503241476, 1980959, 8666895477, 6792497428, 474235892, 5854809, 8471034048, 9584665, 2142845, 5160354, 2399574197, 4086223, 8100547, 5659512, 72309572, 7374095, 243677402, 8396991306, 36540140, 6015624, 5779432, 4673372916 ####[address] [place] [address] Consent for Treatmenton 02-25 Consent for Treatment [id number]#1.00C D:127 Normal [facility] Consent for Treatment [id number]#1.00C D:127 Normal [facility] Ferritinon 03-11-2023 Ferritin [Mass/Vol] 3583 ng/mL High 24-[address] [facility] [address] [facility] Comment on above: Result Comment: NORM ALS MEN <30 YRS 16-132 ng/mL MEN >30 YRS 8-338 ng/mL WOMEN (PREMEN) 6-104 ng/mL WOMEN (POSTMEN) 12-210 ng/mL Performed By: #### 2 607379655, 0088244751, 4927974, 2653099708, 9352680236, 482559803, 4702149, 7070921643, 2957388, 8243549, 5344402, 2240322362, 1133302, 4968151, 2019611, 23706809, 7377949, 342872436, 1857425399, 40228229, 8109588, 7162715, 5911921820 ####[facility] [address] [place] [address] Folateon 03-11-2023 Folate [Mass/Vol] 11.6 ng/mL Normal >=6.7 [facility] Comment on above: Performed By: #### 2 [id number], [id number], [id number], [id number], [id number], [id number], 4312296, [id number], 5400223, 1779012, 9188886, [id number], 3800117, 1216833, 7224695, 42362638, 8689238, 236544965, [id number], 07890756, 4978651, 6799587, [id number] ####[facility] [id number] [place] [address] Ironon 03-11-2023 Iron [Mass/Vol] 267 microgram/dL High 35-[address] [facility] Comment on above: Performed By: #### 2 [id number], [id number], 0301284, 9792612776, 1088369836, 517991872, 8354150, 2235620536, 6241159, 0699444, 8831383, 7943840609, 9244995, 8511205, 1307131, 04895079, 4816818, 067716222, 0343928161, 57713152, 5972966, 3809816, 2208925895 ####[address] [place] [address] Iron Saturationon 03-11-2023 Iron binding capacity [Mass/Vol] 294 microgram/dL Normal 250-400 [facility] Comment on above: Performed By: #### 2 [id number], 3338533551, 4304208, 6368627391, 2481217496, 418849640, 2899260, 0386347225, 6158531, 6203635, 5822715, 3274671018, 4841247, 5834929, 6784205, 83015170, 7856842, 264509594, 6903096831, 41050058, 4418269, 7236840, 1016634641 ####[address] [address] Iron saturation [Mass fraction] 91 % High 20-50 [facility] Comment on above: Performed By: #### 2 535532235, 5012962069, 8610087, 9451532057, 3425414499, 121070074, 7717258, 3686839741, 9748680, 4669726, 8952541, 9395643993, 7265156, 6638163, 1511743, 61775708, 4440213, 576360248, 7230868644, 12960581, 1883171, 1339137, 7119466522 ####[address] [address] LDHon 03-11-2023 LDH [Catalytic activity/Vol] 211 Int._Unit/L Normal 93-218 [facility] Comment on above: Performed By: #### 2 045776973, 4805105434, 5471326, 5779224401, 4902359872, 773777546, 1253285, 2102444376, 6669649, 8318105, 2231904, 6995389464, 3792775, 2269045, 3821616, 05155970, 5181541, 861474898, 4177532095, 44421233, 2983818, 2901724, 4888311391 ####[facility] [address] [place] [address] Manual Diffon 03-11-2023 Anisocytosis Ql (Bld) Present Normal [facility] Comment on above: Order Comment: Order Added by Discern Expert. Performed By: #### 3 5634501, 9239727, 3203660, 2081169, 46562817 #### [facility] [address] [place] [address] Band form neutrophils/100 WBC (Bld) 9 % Normal 0-10 [facility] Comment on above: Order Comment: Order Added by Ronaldo Expert. Performed By: #### 3 9748475, 0026410, 3886008, 5758206, 83867208 #### [facility] [address] [place] [address] Basophils/100 WBC (Bld) 0 % Normal 0-2 [facility] Comment on above: Order Comment: Order Added by Discern Expert. Performed By: #### 3 6290919, 2804856, 1953012, 3082321, 48759514 #### [facility] [address] [place] [address] Eosinophils/100 WBC (Bld) 1 % Normal 0-8 [facility] Comment on above: Order Comment: Order Added by Discern Expert. Performed By: #### 3 2497049, 7833543, 3196334, 5563293, 91550290 #### [facility] [address] [place] [address] Hypochromia Auto Ql (Bld) Present Normal [facility] Comment on above: Order Comment: Order Added by Discern Expert. Performed By: #### 3 5926294, 8105009, 0902164, 3264002, 52114126 #### [facility] [address] [place] [address] Lymphocytes/100 WBC (Bld) 25 % Normal 14-50 [facility] Comment on above: Order Comment: Order Added by Discern Expert. Performed By: #### 3 5583288, 3602925, 2350695, 9187021, 02712108 #### [facility] [address] [place] [address] Macrocytes Ql (Bld) Present Normal [facility] Comment on above: Order Comment: Order Added by Discern Expert. Performed By: #### 3 4123426, 3920603, 8919731, 8451681, 47280328 #### [facility] [address] [place] [address] Metamyelocytes/Leuk ocytes Manual cnt (Bld) [Pure # fraction] 2 % High <=0 [facility] Comment on above: Order Comment: Order Added by Discern Expert. Performed By: #### 3 3617695, 6694650, 2631843, 0513262, 53859781 #### [facility] [address] [place] [address] Monocytes/100 WBC (Bld) 6 % Normal 4-14 [facility] Comment on above: Order Comment: Order Added by Discern Expert. Performed By: #### 3 1740883, 7143011, 7232330, 9429736, 51691703 #### [facility] [address] [place] [address] Morphology Edmundo (Bld) [Interp] See Morphology Normal [facility] Comment on above: Order Comment: Order Added by Discern Expert. Result Comment: Resu lts are consistent with previous path review performed on 01-06-23. Reviewed by MA. Performed By: #### 3 6890698, 1755972, 3485842, 1934265, 67305281 #### [facility] [address] [place] [address] Myelocytes/100 WBC (Bld) 7 % High <=0 [facility] Comment on above: Order Comment: Order Added by Discern Expert. Performed By: #### 3 9852990, 4178808, 9830511, 2485554, 88944778 #### [facility] [address] [place] [address] Platelets Large LM Ql (Bld) Present Normal [facility] Comment on above: Order Comment: Order Added by Discern Expert. Performed By: #### 3 8233391, 2961070, 8215352, 2865669, 85899951 #### [facility] [address] [place] [address] Segmented neutrophils/100 WBC (Bld) 50 % Normal 36-75 [facility] Comment on above: Order Comment: Order Added by Discern Expert. Performed By: #### 3 0751466, 3531345, 2665968, 5523902, 78564419 #### [facility] [address] [place] [address] Variant lymphocytes LM Ql (Bld) 0 % Normal <=0 [facility] Comment on above: Order Comment: Order Added by Discern Expert. 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 I accompanied Dr. Lu in room. Medical history reviewed. Patient was diagnosed with MDS and received CC/[place] [facility]. Patient had BMB 08/2021. Patient was signed on with [facility] but then quit [facility]. Patient is on home/portable oxygen. Patient with pancytopenia. Patient's learning administrator is Dr. Faria/[facility] [phone]. Treatment Plan: labs to be done today, Appt with Dr. Mercer, weekly CBC & BB hold to be done at [facility], every 3 week CMP,LDH to be done at [facility], transfusion standing order faxed to [facility] Follow-Up Appointment Info/Referrals: 6 weeks Resources Offered: Contact information provided to patient. Patient is stage 4 kidney disease and ejection fraction of 20% Normal [facility] Comment on above: Result Comment: Elec tronically Signed By: Tuan HEALY, Angle Daigle.etienne\Date and Time Signed: 03/11/23 17:03 EDT Oncology [...] for any further chemotherapy or treatment by [facility] hematology oncology here in [facility]. Patient and his Lissette wanted second opinion [...] that. Unfortunately he suffered from an acute TX on 11/23/2021 and developed another GI bleed. He was transfused several RBCs and managed to get his catheterization. 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 He was requiring packed RBC transfusion every 3 to 4 weeks and eventually was deemed not a responsive to 5 days and was seen by Dr. Esposito at [facility]. He was getting blood transfusion for hemoglobin [...] IM injection every 3 weeks at the [facility]. Treatment to date: 1. Intermittent IV iron [...] colchicine 0.6 (more content not included)... Normal [facility] Patient Educationon 03-11-20 23 Patient Education Normal [facility] Physician Orderon 03-11-2023 Physician Order [id number]#1.00 CD:127 Normal [facility] Physician Order [id number]#1.00 CD:127 Normal [facility] Physician Order [id number]#1.00 CD:127 Normal [facility] Retic Counton 03-11-2023 Reticulocytes/100 RBC (Bld) 0.7 % Normal 0.5-1.5 [facility] Comment on above: Result Comment: This Reticulocyte Count Has Been Corrected For Anemia Performed By: #### 3 5798354, 0743885, 8849878, 5470982, 23429154 #### [facility] [address] [place] [address] Screenson 03-11-2023 Screens [id number]#1.00C D:127 Normal [facility] Transferrinon 03-11-2023 Transferrin [Mass/Vol] 210 mg/dL Normal 200-370 [facility] Comment on above: Performed By: #### 2 [id number], 6674667000, 3884533, 7763030533, 3743119851, 020361064, 1169129, 1853264276, 0414809, 4992100, 1552621, 1061335764, 5531133, 4492845, 9716819, 82833094, 3238789, 559800980, 0221487992, 99130524, 1804179, 7163284, 5221689456 ####[facility] [address] [place] [address] UA With Cult Reflexon 2022 Bilirubin Ql (U) Negative Normal Negative [facility] Comment on above: Order Comment: micro hematuria Performed By: #### 1 2962512 #### [facility] [address] [place] [address] Clarity (U) CLEAR Normal Clear [facility] Comment on above: Order Comment: micro hematuria Performed By: #### 1 3759451 #### [facility] [address] [place] [address] Color (U) STRAW Abnormal Yellow [facility] Comment on above: Order Comment: micro hematuria Performed By: #### 1 5913922 #### [facility] [address] [place] [address] Epithelial cells.squamous LM.HPF (Urine sed) [#/Area] 0-2 Normal 0-2 [facility] Comment on above: Order Comment: micro hematuria Performed By: #### 1 4170529 #### [facility] [address] [place] [address] Glucose Test strip (U) [Mass/Vol] 2+ Abnormal Negative [facility] Comment on above: Order Comment: micro hematuria Performed By: #### 1 6712887 #### [facility] [address] [place] [address] Hemoglobin Ql (U) Negative Normal Negative [facility] Comment on above: Order Comment: micro hematuria Performed By: #### 1 2519249 #### [facility] [address] [place] [address] Ketones (U) [Mass/Vol] Negative Normal Negative [facility] Comment on above: Order Comment: micro hematuria Performed By: #### 1 1821816 #### [facility] [address] [place] [address] Wylie.plasma/Lith ium.RBC (Bld) [Mass ratio] 0-3 Normal 0-3 [facility] Comment on above: Order Comment: micro hematuria Performed By: #### 1 9197544 #### [facility] [address] [place] [address] Nitrite Ql (U) Negative Normal Negative [facility] Comment on above: Order Comment: micro hematuria Performed By: #### 1 1973791 #### [facility] [address] [place] [address] pH (U) 6.0 [pH] Invalid Interpretation Code 5.0-9.0 [facility] Comment on above: Order Comment: micro hematuria Performed By: #### 1 9485510 #### [facility] [address] [place] [address] Protein (U) [Mass/Vol] Negative Normal Negative [facility] Comment on above: Order Comment: micro hematuria Performed By: #### 1 8492836 #### [facility] [address] [place] [address] Specific gravity (U) [Rel density] <=1.005 Invalid Interpretation Code 1.005-1.030 [facility] Comment on above: Order Comment: micro hematuria Performed By: #### 1 8713751 #### [facility] [address] [place] [address] Type of Urine collection method Random Urine Normal [facility] Comment on above: Order Comment: micro hematuria Performed By: #### 1 7199950 #### [facility] [address] [place] [address] Urobilinogen Qn (U) 0.2 {Dav'U}/dL Normal 0.0-1.0 [facility] Comment on above: Order Comment: micro hematuria Performed By: #### 1 7918056 #### [facility] [address] [place] [address] WBC Auto Ql (U) Negative Normal Negative [facility] Comment on above: Order Comment: micro hematuria Performed By: #### 1 8987505 #### [facility] [address] [place] [address] WBC LM.HPF (Urine sed) [#/Area] 0-5 Normal 0-5 [facility] Comment on above: Order Comment: micro hematuria Performed By: #### 1 7267711 #### [facility] [address] [place] [address] Vit B12on 03-11-2023 Cobalamin (Vitamin B12) [Mass/Vol] 457 pg/mL Normal 50-1500 [facility] Comment on above: Performed By: #### 2 855796157, 4801378336, 3672072, 0086179451, 2912996626, 494664431, 2584635, 5958993233, 5526635, 8198814, 3724235, 4394196655, 8057357, 0761528, 2354952, 24900571, 2812452, 343232350, 2352434235, 55841992, 6955769, 1978831, 4091790968 ####[facility] [address] [place] [address] eGFRon 03-11-2023 GFR/1.73 sq M.predicted among non-blacks MDRD (S/P/Bld) [Vol rate/Area] 34 mL/min/1.73 m2 Low >=59 [facility] Comment on above: Order Comment: Order added by Discern Expert. Result Comment: Valet Manager charlene kidney disease could be indicated at eGFR's of less than 60 mL/min/1.73m2. Kidney failure is indicated at less than 15 mL/min/1.73m2. Performed By: #### 2 129270315, 9119789227, 9159631, 0390451056, 2505300867, 088994725, 4714620, 2602919569, 9945299, 9639381, 9756439, 6558458775, 6636638, 5061838, 0905098, 51243628, 3332026, 894127417, 1166701999, 51514926, 4547310, 6769725, 5059133660 ####[facility] [address] [place] [address] Ambulatory Visit Summaryon 0 03-10-2023 Ambulatory Visit [...] Flash 2 Glucose Monitoring 14 Day System (Thermal)) Misc Prescription (Misc DME Prescription) aspirin (aspirin [...] 40 mg Cap-DR) potassium chloride (Potassium Chloride (Cfd-Cxld-Ias M20) 20 mEq oral tablet, extended release) [...] PM EDT With: Álvaro Barton MD Where: [facility] Ambulatory Visit Summary ANNE MARIESANDIP TAN :1940 Visit Date:03/10/2023 Ambulatory Visit Instructions Your [...] Flash 2 Glucose Monitoring 14 Day System (Thermal)) Misc Prescription (Misc DME Prescription) aspirin (aspirin [...] 40 mg Cap-DR) potassium chloride (Potassium Chloride (Eyh-Eafx-Wuu M20) 20 mEq oral tablet, extended release) [...] PM EDT With: Álvaro Barton MD Where: [facility] Medicine [facility] Patient Educationon 03-10-20 23 Patient Education Cardiovascular Angina Angina is discomfort [...] these instructions at home: Medicines ? Take pquh-itn-rdcnshz and prescription medicines only as told by [...] can dri (more content not included)... Normal [facility] Family Medicine Office/Clini c Noteon 02-17-2023 Family [...] with voice recognition artificial intelligence software, specifically TheraVida, Nordic Neurostim and or Nomi. Substitutions may have occurred due to the inherent limitations of voice recognition and artificial intelligence software. ATTESTATION: Documentation services were performed after patient or guardian consented to allow [employer] to record this visit. VIRGEN storage specialist and provider reviewed before signing. VIRGEN: [...] Tab, 2.5 (more content not included)... Normal [facility] Comment on above: Result Comment: Elec tronically Signed By: Álvaro Barton MD\.br\Date and Time Signed: 02/17/23 12:06 EDT\.br\Electronically Co-Signed By: Maria Ines Puente\.br\Date and Time Co-Signed: 02/13/23 18:35 EDT Physician Referralon 023 Physician Referral [id number]#1.00 CD:127 Normal [facility] Correspo ndenceon 02-07-2023 Outside [facility] Correspondence [id number]#1.00C D:127 Normal [facility] Urinalysison 01-11-2023 Bilirubin Ql (U) Negative Normal Negative [facility] Comment on above: Performed By: #### 1 0360715, 00411111 ####[facility] [address] [place] [address] Clarity (U) CLEAR Normal Clear [facility] Comment on above: Performed By: #### 1 7885377, 36743680 ####[facility] [address] [place] [address] Color (U) YELLOW Normal Yellow [facility] Comment on above: Performed By: #### 1 9807990, 37710510 ####[facility] [address] [place] [address] Epithelial cells.squamous LM.HPF (Urine sed) [#/Area] 0-2 Normal 0-2 [facility] Comment on above: Performed By: #### 1 9754919, 97141666 ####[facility] [address] [place] [address] Glucose Test strip (U) [Mass/Vol] 3+ Abnormal Negative [facility] Comment on above: Performed By: #### 1 2641156, 08520217 ####[facility] [address] [place] [address] Hemoglobin Ql (U) Negative Normal Negative [facility] Comment on above: Performed By: #### 1 7522557, 50756405 ####[address] [address] Ketones (U) [Mass/Vol] Negative Normal Negative [facility] Comment on above: Performed By: #### 1 3093931, 81764037 ####[address] [address] Wylie.plasma/Lith ium.RBC (Bld) [Mass ratio] 0-3 Normal 0-3 [facility] Comment on above: Performed By: #### 1 7745634, 95288213 ####[facility] [address] [place] [address] Nitrite Ql (U) Negative Normal Negative [facility] Comment on above: Performed By: #### 1 8978816, 21095694 ####[address] [place] [address] pH (U) 6.5 [pH] Invalid Interpretation Code 5.0-9.0 [facility] Comment on above: Performed By: #### 1 6277717, 74572685 ####[address] [place] [address] Protein (U) [Mass/Vol] Negative Normal Negative [facility] Comment on above: Performed By: #### 1 9654473, 79424563 ####[address] Specific gravity (U) [Rel density] 1.010 Invalid Interpretation Code 1.005-1.030 [facility] Comment on above: Performed By: #### 1 0837070, 03255993 ####[facility] [address] Type of Urine collection method Clean Catch Normal [facility] Comment on above: Performed By: #### 1 0030467, 39044672 ####[facility] [address] Urobilinogen Qn (U) 0.2 {Dav'U}/dL Normal 0.0-1.0 [facility] Comment on above: Performed By: #### 1 6465096, 64377873 ####[facility] [address] [place] [address] WBC Auto Ql (U) Negative Normal Negative [facility] Comment on above: Performed By: #### 1 3934463, 35937078 ####[facility] [address] WBC LM.HPF (Urine sed) [#/Area] 0-5 Normal 0-5 [facility] Comment on above: Performed By: #### 1 1564296, 81160923 ####[facility] [address] [place] [address] CHEMISTRYOrdered By: José Luis Cat on 01-10-2023 Albumin DL <= 20 mg/L (U) [Mass/Vol] microgram/mL Normal 0.0 - 19.0 mcg/mL [facility] Remisol Albumin Elph (U) [Mass fraction] 6.1 mg/dL Invalid Interpretation Code [facility] Remisol Creatinine (U) [Mass/Vol] 47.9 mg/dL Invalid Interpretation Code [facility] Remisol U Prot/Creat Ratio 127.30 mg/gm Cr Normal 0.00 - 200.00 mg/gm Cr [facility] Remisol Nurse Consultation Noteon Nurse [...] mg= 1 cap(s), Oral, Daily Potassium Chloride (Lbs-Dxhj-Lqd M20) 20 mEq oral tablet, extended release, [...] influenza virus vaccine, inactivated 05/23/2013 Recorded Normal [facility] U Microalbon 01-10-2023 Albumin DL <= 20 mg/L (U) [Mass/Vol] mg/dL Normal 0.0-19.0 [facility] Comment on above: Performed By: #### 1 5258463, 09110002 ####[facility] [address] [place] [address] U Protein/Creat Ratioon 12-26 Albumin Elph (U) [Mass fraction] 6.1 mg/dL Invalid Interpretation Code [facility] Comment on above: Result Comment: The reference range and other method performance specifications have not been established for this test; results should be integrated into the clinical context for interpretation. Performed By: #### 1 [id number] ####[address] [address] Creatinine (U) [Mass/Vol] 47.9 mg/dL Invalid Interpretation Code [facility] Comment on above: Result Comment: The reference range and other method performance specifications have not been established for this test; results should be integrated into the clinical context for interpretation. Performed By: #### 1 [id number] ####[facility] [address] [place] [address] U Prot/Creat Ratio 127.30 mg/gm Cr Normal .00-200.00 [facility] Comment on above: Performed By: #### 1 900895469 ####[facility] [address] [place] [address] Lab Reportson 01-08-2023 Lab Reports [id number]#1.00CD :127 Normal [facility] Lab Reports [id number]#1.00C D:127 Normal [facility] Lab Reports [id number] :127 Normal [facility] Formson 01-07-2023 Forms [id number]#1.00C D:127 Normal [facility] Path. 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 No increase of schistocytes seen. Invalid Interpretation Code [facility] Comment on above: Order Comment: Order Added by Discern Expert. Performed By: #### 2 376444, 8237355, 61831618, 1518682, 20335078, 54538589, 412439010 ####[facility] [address] [place] [address] Path. 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 No increase of schistocytes seen. D61.818 [facility] [address] Invalid Interpretation Code [facility] Comment on above: Other Comment: Order Added by Discern Expert. Reminderson 01-07-2023 Reminders - From: Brittnay Hull DO To: Álvaro Barton MD; Sent: 01/07/2023 12:25:00 EDT Show up: 01/07/2023 12:24:00 EDT Subject: Ambulatory Reminder Due Date/Time: 01/08/2023 12:23:00 EDT just wanted you be aware of pancytopenia Results: Date Result Type Result Name 01/07/2023 9:00 Document - DOC Path Review Normal [facility] Reminders - From: Brittany Hull DO To: Brittany Hull DO; Sent: 01/07/2023 07:51:10 EDT Show up: 01/07/2023 07:51:00 EDT Subject: anemia Due Date/Time: 01/08/2023 07:50:00 EDT already told staff send er rosanna sent message Results: Date Result Name Ind Value Ref Range 01/06/2023 12: WBC ((L)) 2.5 E9/L (4.0 - 11.0) 01/06/2023 12: RBC ((L)) 1.6 E12/L (4.3 - 5.9) 01/06/2023 12: HGB ((!)) 5.9 gm/dL (13.5 - 17.5) 01/06/2023 12: Hct ((L)) 18.1 % (37.7 - 49.0) 01/06/2023 12: MCV ((H)) 112.5 fL (80.0 - 100.0) 01/06/2023 12: MCH ((H)) 36.4 pg (27.0 - 34.0) [...] ((L)) 0.8 E9/L (1.0 - 4.0) 01/06/2023 12:01 [place]eker Abs Man 0.2 E9/L (0.2 - 1.0) 01/06/2023 12:01 Eos Abs Man 0.0 E9/L (0.0 - 0.5) 01/06/2023 12:01 Basophil Abs Man 0.0 E9/L (0.0 - 0.2) 01/06/2023 12:01 RBC Morph See Morphology 01/06/2023 12:01 Anisocytosis Present 01/06/2023 12:01 Macrocyte Present 01/06/2023 12:01 Hypochromasia Present 01/06/2023 12:01 Ovalocytes Present 01/06/2023 12:01 Large Plt Present [...] Lvl 4.3 mmol/L (3.5 - 5.3) 01/06/2023 12:01 Chloride 104 mmol/L (101 - 111) 01/06/2023 12:01 CO2 28 mmol/L (21 - 31) 01/06/2023 12:01 AGAP 13 mEq/L (6 - 16) 01/06/2023 12:01 Calcium Lvl ((L)) 8.8 mg/dL (8.9 - 11.1) 01/06/2023 12:01 Alk Phos 70 Int._Unit/L (21 - 98) 01/06/2023 12:01 ALT ((H)) 79 Int._Unit/L (6 - 46) 01/06/2023 12:01 AST 25 Int._Unit/L (5 - 43) 01/06/2023 12:01 Total Protein 6.5 gm/dL (6.0 - 7.8) 01/06/2023 12:01 Albumin Lvl ((L)) 3.2 gm/dL (3.3 - 5.0) 01/06/2023 12:01 Globulin 3.3 gm/dL (1.4 - 4.0) 01/06/2023 12:01 A/G Ratio ((L)) 1.0 (1.1 - 2.2) 01/06/2023 12:01 Bili Total 0.8 mg/dL (0.0 - 1.1) 01/06/2023 12:01 Hgb A1C % ((H)) 8.1 % ( - <=5.9) Normal [facility] .Manual Abson 01-06-2023 Basophils/Leukocyte s Manual cnt (Bld) [Pure # fraction] 0.0 E9/L Normal 0.0-0.2 [facility] Comment on above: Performed By: #### 2 410172, 7886047, 56310940, 8161593, 16928130, 99033702, 605012767 ####[facility] [address] [place] [address] Eosinophils/Leukocy jorge Manual cnt (Bld) [Pure # fraction] 0.0 E9/L Normal 0.0-0.5 [facility] Comment on above: Performed By: #### 2 459555, 3269921, 42830612, 9796822, 27489885, 64145572, 951053612 ####[facility] [address] [place] [address] Lymphocytes/Leukocy jorge Manual cnt (Bld) [Pure # fraction] 0.8 E9/L Low 1.0-4.0 [facility] Comment on above: Performed By: #### 2 622208, 9929310, 76131134, 8707367, 42799730, 81001004, 393982199 ####[facility] [address] [place] [address] Monocytes/Leukocyte s Manual cnt (Bld) [Pure # fraction] 0.2 E9/L Normal 0.2-1.0 [facility] Comment on above: Performed By: #### 2 133875, 7127670, 64064406, 2801298, 88649242, 60968186, 069785138 ####[facility] [address] [place] [address] Neutrophils/Leukocy jorge Auto (Bld) [Pure # fraction] 1.4 E9/L Low 2.0-7.5 [facility] Comment on above: Performed By: #### 2 121399, 7574890, 99145511, 3620565, 64392805, 47031295, 910155819 ####[facility] [address] [place] [address] Ambulatory Visit Summaryon 0 01-06-2023 Ambulatory Visit [...] 40 mg Cap-DR) potassium chloride (Potassium Chloride (Hki-Xfdt-Awt M20) 20 mEq oral tablet, extended release) [...] Appointments Friday 2:00 PM EDT With: Where: [facility] [address] [place] [address]- \.br\ Medications\.br\ What How Much When Instructions\.br\ Unchanged aspirin (aspirin 81 mg Oral EC [...] concerns \.br\ Unchanged potassium chloride (Potassium Chloride (Kqu-Tmuk-Esg M20) 20 mEq oral tablet, extended release) [...] (angina pectoris)\.br\ Bone marrow failure\.br\ BPH without obstruction/lower urinary tract symptoms\.br\ Diabetes\.br\ Follicular impetigo\.br\ Hospice care\.br\ Hyperlipidemia\.b r\ Hypertension\.br\ Kidney cysts\.br\ Microscopic hematuria\.br\ Pulmonary HTN\.br\ Renal failure\.br\ Systolic CHF\.br\ Urge incontinence\.br\ Urinary urgency\.br\ Education Materials\.br\ BMI for Adults\.br\ [...] is obese, overweight, a healthy weight, or underweight.\.br\ BMI is useful for:\.br\ ? \.br\ Identifying [...] numbers. This can be done either in [place] ([place] or metric measurements. Note that charts and online BMI calculators are available to help you find your BMI quickly and easily without having to do these calculations yourself.\.br\ To calculate your BMI in [place] ([place] measurements:\.br \ \.br\ 1. \.br\ Measure your weight in [...] BMI.\.br\ To calculate your BMI in metric measurements:\.br \ 1. \.br\ Measure your weight in kilograms [...] Disease Control and Prevention: www.cdc.gov\.br\ ? \.br\ [place] Heart Association: www.heart.org\.br \ ? \.br\ National Heart, Lung, and Blood Talmo: www.nhlbi.nih.gov \.br\ Summary\.br\ ? \.br\ Body mass index (BMI) is a number that is calculated from a person's weight and height.\.br\ ? \.br\ BMI may help estimate how much of a person's weight is composed of fat. BMI can help identify those who may be at higher risk for certain medical problems.\.br\ ? \.br\ BMI can be measured using [place]ian measurements or metric measurements.\.br \ ? \.br\ BMI charts are used to identify whether you are underweight, normal weight, overweight, or obese.\.br\ This information is not intended to replace advice given to you by your health care provider. Make sure you discuss any questions you have with your health care provider.\.br\ Document Revised: 04/05/2020 Document Reviewed: 02/11/2020 Elsevier Patient Education ? 2022 Elsevier Inc.\.br\ \.br\ [facility] Ambulatory Visit Summary SANDIP BROUSSARD :1940 [...] 40 mg Cap-DR) potassium chloride (Potassium Chloride (Ksm-Drit-Mdm M20) 20 mEq oral tablet, extended release) [...] Follow-Up Appointments Friday 2:40 PM EDT With: Álvaro Barton MD Where: [facility] Normal [facility] CBC w/ Auto Diffon 3 Erythrocyte distribution width (RBC) [Ratio] 31.5 % High 10.9-14.2 [facility] Comment on above: Performed By: #### 2 976529, 3525304, 79611605, 6116857, 99465758, 17187180, 057487621 ####[address] [place] [address] Hematocrit (Bld) [Volume fraction] 18.1 % Low 37.7-49.0 [facility] Comment on above: Performed By: #### 2 081784, 1389384, 74813180, 5828936, 64070506, 38683950, 489446470 ####[address] [address] Hemoglobin (Bld) [Mass/Vol] 5.9 g/dL Abnormal 13.5-17.5 [facility] Comment on above: Result Comment: Resu lts Called To dr sparks By And Read Back For Confirmation On 01/06/2023 19:53:45 EDT. Performed By: #### 2 246967, 8104616, 82757672, 7072760, 66206198, 16682753, 925309882 ####[address] [address] MCH (RBC) [Entitic mass] 36.4 pg High 27.0-34.0 [facility] Comment on above: Performed By: #### 2 497232, 9434913, 54035001, 3087529, 16541280, 33506255, 980677641 ####[address] [address] MCHC (RBC) [Mass/Vol] 32.3 g/dL Normal 31.4-36.0 [facility] Comment on above: Performed By: #### 2 684118, 2963879, 58104150, 0741007, 27948140, 44434829, 845001265 ####[address] [address] MCV (RBC) [Entitic vol] 112.5 fL High 80.0-100.0 [facility] Comment on above: Performed By: #### 2 530447, 7906151, 14541301, 6244031, 68177156, 50889169, 261240974 ####[address] [place] [address] Platelet mean volume (Bld) [Entitic vol] 13.2 fL High 6.4-10.8 [facility] Comment on above: Performed By: #### 2 308849, 9420956, 25215236, 6475402, 32177327, 06530038, 131569194 ####[address] [address] Platelets (Bld) [#/Vol] 89.0 E9/L Low 150.0-500.0 [facility] Comment on above: Performed By: #### 2 563185, 8785401, 35463963, 2109930, 66988626, 09826520, 048228765 ####[address] [address] RBC (Bld) [#/Vol] 1.6 E12/L Low 4.3-5.9 [facility] Comment on above: Performed By: #### 2 584797, 7215676, 57494218, 4182390, 24189864, 39336201, 197664053 ####[address] [address] WBC corrected for nucl RBC Auto (Bld) [#/Vol] 2.5 E9/L Low 4.0-11.0 [facility] Comment on above: Performed By: #### 2 425424, 6836654, 24216301, 4681420, 79863009, 74268977, 061983713 ####[address] [address] CMPon 01-06-2023 Albumin [Mass/Vol] 3.2 g/dL Low 3.3-5.0 [facility] Comment on above: Performed By: #### 2 545043, 7644011, 93097934, 6318618, 36727012, 15569758, 882155977 ####[address] [address] Albumin/Globulin (S) [Mass conc ratio] 1.0 Low 1.1-2.2 [facility] Comment on above: Performed By: #### 2 446909, 2002033, 75471368, 5328968, 00945427, 95799390, 969640080 ####[facility] [address] [place] [address] ALP [Catalytic activity/Vol] 70 Int._Unit/L Normal 21-98 [facility] Comment on above: Performed By: #### 2 840323, 5109555, 70196678, 0754361, 97530016, 80179550, 118326457 ####[facility] [address] [place] [address] ALT No additional P-5'-P [Catalytic activity/Vol] 79 Int._Unit/L High 6-46 [facility] Comment on above: Performed By: #### 2 337430, 8900978, 00055058, 2310959, 26602834, 92749425, 071628824 ####[facility] [address] [place] [address] Anion gap [Moles/Vol] 13 mmol/L Normal 6-16 [facility] Comment on above: Performed By: #### 2 749062, 9342684, 00302499, 2652562, 86015270, 66537258, 079264753 ####[facility] [address] [place] [address] AST [Catalytic activity/Vol] 25 Int._Unit/L Normal 5-43 [facility] Comment on above: Performed By: #### 2 756333, 0455378, 74969868, 0183903, 05167392, 59767299, 535305539 ####[facility] [address] [place] [address] Bilirubin [Mass/Vol] 0.8 mg/dL Normal 0.0-1.1 [facility] Comment on above: Performed By: #### 2 915489, 5326043, 24204387, 8260820, 23193762, 05766859, 299924591 ####[facility] [address] [place] [address] Calcium [Mass/Vol] 8.8 mg/dL Low 8.9-11.1 [facility] Comment on above: Performed By: #### 2 883221, 3940787, 06735890, 2846459, 80773411, 30670759, 685374399 ####[facility] [address] [place] [address] Chloride [Moles/Vol] 104 mmol/L Normal 101-111 [facility] Comment on above: Performed By: #### 2 119963, 2057283, 83039708, 9608946, 64581800, 76077055, 118297746 ####[facility] [address] [place] [address] CO2 [Moles/Vol] 28 mmol/L Normal 21-31 [facility] Comment on above: Performed By: #### 2 894050, 4107526, 71751343, 0794925, 34109836, 13479744, 452293035 ####[facility] [address] [place] [address] Creatinine [Mass/Vol] 2.2 mg/dL High 0.5-1.3 [facility] Comment on above: Performed By: #### 2 741903, 0105713, 43348670, 5017574, 29568056, 65606124, 835540820 ####[facility] [address] [place] [address] Globulin (S) [Mass/Vol] 3.3 g/dL Normal 1.4-4.0 [facility] Comment on above: Performed By: #### 2 141959, 2311346, 01216315, 4688280, 86286721, 33945721, 839108527 ####[facility] [address] [place] [address] Glucose [Mass/Vol] 192 mg/dL Normal 55-199 [facility] Comment on above: Result Comment: If t his glucose result represents a fasting glucose, interpretation should refer to the following reference range: 55-99 mg/dL Performed By: #### 2 377190, 1013808, 48557137, 0906898, 05402616, 64336592, 233128583 ####[facility] [address] [place] [address] Potassium [Moles/Vol] 4.3 mmol/L Normal 3.5-5.3 [facility] Comment on above: Performed By: #### 2 147971, 9308590, 26420262, 0986471, 63486885, 52513146, 521023697 ####[facility] [address] [place] [address] Protein [Mass/Vol] 6.5 g/dL Normal 6.0-7.8 [facility] Comment on above: Performed By: #### 2 728921, 9394443, 99299564, 9263100, 02045151, 23763451, 156098209 ####[facility] [address] [place] [address] Sodium [Moles/Vol] 141 mmol/L Normal 135-145 [facility] Comment on above: Performed By: #### 2 237046, 3538800, 15776867, 5471276, 98574787, 18655341, 893471794 ####[facility] [address] [place] [address] Urea nitrogen [Mass/Vol] 41 mg/dL High 5-21 [facility] Comment on above: Performed By: #### 2 187087, 5199890, 44396380, 0103341, 35557293, 59036203, 368811269 ####[facility] [address] [place] [address] Urea nitrogen/Creatinine [Mass ratio] 19 No Units Normal 10-20 [facility] Comment on above: Performed By: #### 2 676717, 2210285, 77936983, 1033289, 63499987, 80547308, 120927566 ####[facility] [address] [place] [address] Family Medicine Office/Clini c Noteon 01-06-2023 Family [...] of O2 2/2 pulm HTN, CHF. - [facility] is cardiology - No Pulm Doc [...] Comprehensive Metabolic Panel HgbA1c Lab Specimen Collect 60561 Microalbumin Level Urine U Protein/Creat Ratio 2. AP (angina pectoris) (I20.9: Angina pectoris, unspecified) - No chest pain. Ordered: CBC w/ Auto Diff Comprehensive Metabolic Panel HgbA1c Lab Specimen Collect 18145 Microalbumin Level Urine U Protein/Creat Ratio 3. Diabetes (E11.9: Type 2 diabetes mellitus without complications) - Will check A1c. - Will relax requirements as the patient is on hospice. Ordered: CBC w/ Auto Diff Comprehensive Metabolic Panel HgbA1c Lab Specimen Collect 24555 Microalbumin Level Urine U Protein/Creat Ratio 4. 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 Ordered: CBC w/ Auto Diff Comprehensive Metabolic Panel HgbA1c Lab Specimen Collect 93383 Microalbumin Level Urine U Protein/Creat Ratio 5. Hyperlipidemia (E78.5: Hyperlipidemia, unspecified) - Will have the patient stop taking his cholesterol meds. Ordered: CBC w/ Auto Diff Comprehensive Metabolic Panel HgbA1c Lab Specimen Collect 45671 Microalbumin Level Urine U Protein/Creat Ratio 6. [...] or previo (more content not included)... Normal [facility] Comment on above: Result Comment: Elec tronically Signed By: Mick SEN, Álvaro Leija.br\Date and Time Signed: 01/06/23 12:30 EDT [id number] 01-06-2023 HbA1c (Bld) [Mass fraction] 8.1 % High <=5.9 [facility] Comment on above: Performed By: #### 2 746418, 9045912, 06996916, 9050615, 89238132, 65760334, 350463824 ####[facility] [address] [place] [address] Manual Diffon 01-06-2023 Anisocytosis Ql (Bld) Present Normal [facility] Comment on above: Order Comment: Order Added by Discern Expert. Performed By: #### 2 970083, 3360285, 10632843, 1197782, 57197509, 34539777, 328081625 ####[facility] [address] [place] [address] Band form neutrophils/100 WBC (Bld) 5 % Normal 0-10 [facility] Comment on above: Order Comment: Order Added by Discern Expert. Performed By: #### 2 647009, 5000677, 65686102, 7765675, 07135377, 03377094, 435473298 ####[facility] [address] [place] [address] Basophils/100 WBC (Bld) 1 % Normal 0-2 [facility] Comment on above: Order Comment: Order Added by Discern Expert. Performed By: #### 2 603553, 7758450, 29286518, 3665393, 55922621, 28149437, 862414741 ####[facility] [address] [place] [address] Eosinophils/100 WBC (Bld) 0 % Normal 0-8 [facility] Comment on above: Order Comment: Order Added by Discern Expert. Performed By: #### 2 532389, 3913329, 15332730, 5405378, 66545132, 16709363, 859867780 ####[facility] [address] [place] [address] Hypochromia Auto Ql (Bld) Present Normal [facility] Comment on above: Order Comment: Order Added by Ronaldo Expert. Performed By: #### 2 014974, 9229351, 47346874, 6674152, 58769548, 04240270, 446009461 ####[facility] [address] [place] [address] Lymphocytes/100 WBC (Bld) 30 % Normal 14-50 [facility] Comment on above: Order Comment: Order Added by Ronaldo Expert. Performed By: #### 2 812411, 7001260, 27641566, 8584435, 84061717, 99226876, 666470340 ####[facility] [address] [place] [address] Macrocytes Ql (Bld) Present [facility] Comment on above: Order Comment: Order Added by Ronaldo Expert. Performed By: #### 2 337223, 4135486, 71278040, 5097620, 46407262, 13257384, 692856603 ####[facility] [address] [place] [address] Monocytes/100 WBC (Bld) 7 % Normal 4-14 [facility] Comment on above: Order Comment: Order Added by Ronaldo Expert. Performed By: #### 2 529111, 0858323, 31807289, 1223811, 32658642, 27025402, 913973571 ####[facility] [address] [place] [address] Morphology Edmundo (Bld) [Interp] See Morphology Normal [facility] Comment on above: Order Comment: Order Added by Discern Expert. Performed By: #### 2 426717, 9020239, 08842567, 9710968, 87791026, 99732725, 982381971 ####[facility] [address] [place] [address] Myelocytes/100 WBC (Bld) 5 % High <=0 [facility] Comment on above: Order Comment: Order Added by Discern Expert. Performed By: #### 2 906865, 8875473, 41587619, 5395522, 35198629, 22375851, 000169016 ####[facility] [address] [place] [address] Ovalocytes LM Ql (Bld) Present Normal [facility] Comment on above: Order Comment: Order Added by Discern Expert. Performed By: #### 2 376588, 4641439, 67308247, 2041390, 82592108, 62665282, 828018719 ####[facility] [address] [place] [address] Platelets Large LM Ql (Bld) Present Normal [facility] Comment on above: Order Comment: Order Added by Discern Expert. Performed By: #### 2 978878, 5378574, 49125086, 4133261, 20666729, 54349198, 113459168 ####[facility] [address] [place] [address] Segmented neutrophils/100 WBC (Bld) 50 % Normal 36-75 [facility] Comment on above: Order Comment: Order Added by Discern Expert. Performed By: #### 2 037660, 6785141, 96064950, 9921813, 07874353, 17413248, 202545230 ####[facility] [address] [place] [address] Variant lymphocytes LM Ql (Bld) 2 % High <=0 [facility] Comment on above: Order Comment: Order Added by Discern Expert. Performed By: #### 2 383706, 1642408, 23127122, 6272084, 76471886, 08257049, 643945434 ####[facility] [address] [place] [address] Patient Educationon 01-07-20 Patient Education Nutrition BMI for Adults What [...] numbers. This can be done either in [place] ([place] or metric measurements. Note that charts and online BMI calculators are available to help you find your BMI quickly and easily without having to do these calculations yourself. To calculate your BMI in [place] ([place] measurements: 1. Measure your weight in [...] for Disease Control and Prevention: www.cdc.gov ? [place] [employer] Association: www.heart.org ? National Heart, Lung, and Blood Talmo: www.nhlbi.nih.gov Summary ? Body mass index (BMI) is a number that is calculated from a person's weight and height. ? BMI may help estimate how much of a person's weight is composed of fat. BMI can help identify those who may be at higher risk for certain medical problems. ? BMI can be measured using [place]ian measurements or metric measurements. ? BMI charts are used to identify whether you are underweight, normal weight, overweight, or obese. This information is not intended to replace advice given to you by your health care provider. Make sure you discuss any questions you have with your health care provider. Document Revised: 04/05/2020 Document Reviewed: 02/11/2020 [employer] Patient Education ? 2022 [employer] Normal [facility] eGFRon 01-06-2023 GFR/1.73 sq M.predicted among non-blacks MDRD (S/P/Bld) [Vol rate/Area] 29 mL/min/1.73 m2 Low >=59 [facility] Comment on above: Order Comment: Order added by Discern Expert. Result Comment: Valet Manager charlene kidney disease could be indicated at eGFR's of less than 60 mL/min/1.73m2. Kidney failure is indicated at less than 15 mL/min/1.73m2. Performed By: #### 2 227417, 6613301, 62775676, 9708048, 18512063, 80277416, 525436746 ####[facility] [address] [place] [address] Lab Reportson 12-26-2022 Lab Reports [id number] D:127 Normal [facility] Lab Reportson 12-11-2022 Lab Reports [id number] D:127 Normal [facility] CBC AUTO DIFFon 12-10-2022 BASO # 0.0 103/ul Normal 0.0-0.1 [facility] Comment on above: Performed By: #### H H #### [facility] [address] [address] [address] Benito To Basophils/100 WBC (Bld) 0.5 % Normal 0.2-2.0 [facility] Comment on above: Performed By: #### H H #### [facility] [address] [address] [address] Benito To EO # 0.0 103/ul Normal 0.0-0.7 [facility] Comment on above: Performed By: #### H H #### [facility] [address] [address] [address] Benito To Eosinophils/100 WBC (Bld) 0.9 % Normal 0.9-7.0 [facility] Comment on above: Performed By: #### H H #### [facility] [address] [place] [address] Dr. Benito To Erythrocyte distribution width (RBC) [Ratio] 26.4 % Critically high 11.0-15.0 [facility] Comment on above: Performed By: #### H H #### [facility] [address] [place] [address] Dr. Benito To Hematocrit (Bld) [Volume fraction] 25.0 % Critically low 42.0-54.0 [facility] Comment on above: Performed By: #### H H #### [facility] [address] [place] [address] Dr. Benito To Hemoglobin (Bld) [Mass/Vol] 8.1 g/dL Critically low 14.0-18.0 [facility] Comment on above: Performed By: #### H H #### [facility] [address] [place] [address] Dr. Benito To IG # 0.11 10e3/ul Critically high 0.00-0.03 [facility] Comment on above: Performed By: #### H H #### [facility] [address] [place] [address] Dr. Benito To IG % 5.0 % Critically high 0.0-0.5 [facility] Comment on above: Performed By: #### H H #### [facility] [address] [place] [address] Dr. Benito To LYMPH # 0.7 103/ul Critically low 1.2-3.8 [facility] Comment on above: Performed By: #### H H #### [facility] [address] [place] [address] Dr. Benito To Lymphocytes/100 WBC (Bld) 29.9 % Normal 20.5-60.0 [facility] Comment on above: Performed By: #### H H #### [facility] [address] [place] [address] Dr. Benito To MANUAL DIFF REQ NO Normal [facility] Comment on above: Performed By: #### H H #### [facility] [address] [place] [address] Dr. Benito To MCH (RBC) [Entitic mass] 33.2 pg Normal 25.9-34.0 [facility] Comment on above: Performed By: #### H H #### [facility] [address] [place] [address] Dr. Benito To MCHC (RBC) [Mass/Vol] 32.4 g/dL Normal 29.9-35.2 [facility] Comment on above: Performed By: #### H H #### [facility] [address] [place] [address] Dr. Benito To MCV (RBC) [Entitic vol] 102.5 fL Critically high 80.0-94.0 [facility] Comment on above: Performed By: #### H H #### [facility] [address] [place] [address] Dr. Benito To MONO # 0.3 103/ul Normal 0.3-0.8 [facility] Comment on above: Performed By: #### H H #### [facility] [address] [place] [address] Dr. Benito To Monocytes/100 WBC (Bld) 14.5 % Critically high 1.7-12.0 [facility] Comment on above: Performed By: #### H H #### [facility] [address] [place] [address] Dr. Benito To NEUT # 1.1 103/ul Critically low 1.4-6.5 [facility] Comment on above: Performed By: #### H H #### [facility] [address] [place] [address] Dr. Benito To Neutrophils/100 WBC (Bld) 49.2 % Normal 43.0-75.0 [facility] Comment on above: Performed By: #### H H #### [facility] [address] [address] [address] Benito To Platelet mean volume (Bld) [Entitic vol] 14.4 fL Critically high 9.5-13.5 [facility] Comment on above: Performed By: #### H H #### [facility] [address] [address] [address] Benito To PLT 121 103/ul Critically low 150-450 [facility] Comment on above: Performed By: #### H H #### [facility] [address] [address] [address] Benito To RBC 2.44 106/ul Critically low 4.70-6.10 [facility] Comment on above: Performed By: #### H H #### [facility] [address] [address] [address] Benito To WBC 2.2 103/ul Critically low 4.0-11.0 [facility] Comment on above: Performed By: #### H H #### [facility] [address] [address] [address] Benito To Lab Reportson 12-04-2022 Lab Reports [id number] D:127 Normal [facility] PRBC LEUKOREDUCEDon 12-05-19 23 ABO and Rh group Nom (Bld) Cross Match Result Compatible Unit Blood Type A Pos Unit Number [id number] Status Information Issued Product ID Red Blood Cells Product Code [id number] Issue Date/Time [id number] Normal [facility] Comment on above: Performed By: #### P RBC, TNS #### [facility] [address] [place] [address] Dr. Benito To Ambulatory Visit Summaryon 0 [...] 40 mg Cap-DR) potassium chloride (Potassium Chloride (Etq-Hkdt-Cfe M20) 20 mEq oral tablet, extended release) [...] EDT With: Mick SEN, Álvaro Davies Where: [facility] CBC AUTO DIFFon 12-03-2022 BASO # 0.0 103/ul Normal 0.0-0.1 [facility] Comment on above: Performed By: #### T NS, PRBC #### [facility] [address] [place] [address] Dr. Bneito To Basophils/100 WBC (Bld) 0.4 % Normal 0.2-2.0 [facility] Comment on above: Performed By: #### T NS, PRBC #### [facility] [address] [place] [address] Dr. Benito To EO # 0.0 103/ul Normal 0.0-0.7 [facility] Comment on above: Performed By: #### T NS, PRBC #### [facility] [address] [place] [address] Dr. Benito To Eosinophils/100 WBC (Bld) 0.4 % Critically low 0.9-7.0 [facility] Comment on above: Performed By: #### T NS, PRBC #### [facility] [address] [place] [address] Dr. Benito To Erythrocyte distribution width (RBC) [Ratio] 26.9 % Critically high 11.0-15.0 [facility] Comment on above: Performed By: #### T NS, PRBC #### [facility] [address] [place] [address] Dr. Benito To Hematocrit (Bld) [Volume fraction] 22.5 % Critically low 42.0-54.0 [facility] Comment on above: Performed By: #### T NS, PRBC #### [facility] [address] [place] [address] Dr. Benito To Hemoglobin (Bld) [Mass/Vol] 7.0 g/dL Critically low 14.0-18.0 [facility] Comment on above: Performed By: #### T NS, PRBC #### [facility] [address] [place] [address] Dr. Benito To IG # 0.16 10e3/ul Critically high 0.00-0.03 [facility] Comment on above: Performed By: #### T NS, PRBC #### [facility] [address] [place] [address] Dr. Benito To IG % 7.0 % Critically high 0.0-0.5 [facility] Comment on above: Performed By: #### T NS, PRBC #### [facility] [address] [place] [address] Dr. Benito To LYMPH # 0.7 103/ul Critically low 1.2-3.8 [facility] Comment on above: Performed By: #### T NS, PRBC #### [facility] [address] [place] [address] Dr. Benito To Lymphocytes/100 WBC (Bld) 28.6 % Normal 20.5-60.0 [facility] Comment on above: Performed By: #### T NS, PRBC #### [facility] [address] [place] [address] Dr. Benito To MANUAL DIFF REQ NO Normal [facility] Comment on above: Performed By: #### T NS, PRBC #### [facility] [address] [place] [address] Dr. Benito To MCH (RBC) [Entitic mass] 32.6 pg Normal 25.9-34.0 [facility] Comment on above: Performed By: #### T NS, PRBC #### [facility] [address] [place] [address] Dr. Benito To MCHC (RBC) [Mass/Vol] 31.1 g/dL Normal 29.9-35.2 [facility] Comment on above: Performed By: #### T NS, PRBC #### [facility] [address] [place] [address] Dr. Benito To MCV (RBC) [Entitic vol] 104.7 fL Critically high 80.0-94.0 [facility] Comment on above: Performed By: #### T NS, PRBC #### [facility] [address] [place] [address] Dr. Benito To MONO # 0.4 103/ul Normal 0.3-0.8 [facility] Comment on above: Performed By: #### T NS, PRBC #### [facility] [address] [place] [address] Dr. Benito To Monocytes/100 WBC (Bld) 19.4 % Critically high 1.7-12.0 [facility] Comment on above: Performed By: #### T NS, PRBC #### [facility] [address] [place] [address] Dr. Benito To NEUT # 1.0 103/ul Critically low 1.4-6.5 [facility] Comment on above: Performed By: #### T NS, PRBC #### [facility] [address] [place] [address] Dr. Benito To Neutrophils/100 WBC (Bld) 44.2 % Normal 43.0-75.0 [facility] Comment on above: Performed By: #### T NS, PRBC #### [facility] [address] [address] [address] Benito To Platelet mean volume (Bld) [Entitic vol] 14.6 fL Critically high 9.5-13.5 [facility] Comment on above: Performed By: #### T NS, PRBC #### [facility] [address] [address] [address] Benito To PLT 93 103/ul Critically low 150-450 [facility] Comment on above: Performed By: #### T NS, PRBC #### [facility] [address] [address] [address] Benito To RBC 2.15 106/ul Critically low 4.70-6.10 [facility] Comment on above: Performed By: #### T NS, PRBC #### [facility] [address] [address] [address] Benito To WBC 2.3 103/ul Critically low 4.0-11.0 [facility] Comment on above: Performed By: #### T NS, PRBC #### [facility] [address] [address] [address] Benito To Family Medicine Office/Clini c [...] mg= 1 cap(s), Oral, Daily Potassium Chloride (Hfd-Wkey-Gxh M20) 20 mEq oral tablet, extended release, [...] SARS-CoV-2 (COVID-19) (more content not included)... Normal [facility] Comment on above: Result Comment: Elec tronically Signed By: RYANNE SEN, FLASH Tay.br\Date and Time Signed: 12/03/22 13:58 EDT PROF CHEM 8 (BAS METB)on Anion gap [Moles/Vol] 8.3 mmol/L Normal [facility] Comment on above: Performed By: #### T NS, PRBC #### [facility] [address] [address] [address] Benito To Calcium [Mass/Vol] 9.2 mg/dL Normal 8.5-10.1 [facility] Comment on above: Performed By: #### T NS, PRBC #### [facility] [address] [place] [address] Dr. Benito To Chloride [Moles/Vol] 102 mmol/L Normal 98-107 [facility] Comment on above: Performed By: #### T NS, PRBC #### [facility] [address] [address] [address] Benito To CO2 [Moles/Vol] 31.5 mmol/L Normal 21.0-32.0 [facility] Comment on above: Performed By: #### T NS, PRBC #### [facility] [address] [address] [address] Benito To Creatinine [Mass/Vol] 1.96 mg/dL Critically high 0.70-1.30 [facility] Comment on above: Performed By: #### T NS, PRBC #### [facility] [address] [address] [address] Benito To EGFR-AF GAMBIAN 40 mL/min/1.73m2 Critically low >=60 [facility] Comment on above: Performed By: #### T NS, PRBC #### [facility] [address] [address] [address] Benito To EGFR-NON AF GAMBIAN 33 mL/min/1.73m2 Critically low >=60 [facility] Comment on above: Performed By: #### T NS, PRBC #### [facility] [address] [address] [address] Benito To Glucose [Mass/Vol] 235 mg/dL Critically high 74-106 [facility] Comment on above: Performed By: #### T NS, PRBC #### [facility] [address] [place] [address] Dr. Benito To Potassium [Moles/Vol] 3.8 mmol/L Normal 3.5-5.1 [facility] Comment on above: Performed By: #### T NS, PRBC #### [facility] [address] [place] [address] Dr. Benito To Sodium [Moles/Vol] 138 mmol/L Normal 136-145 [facility] Comment on above: Performed By: #### T NS, PRBC #### [facility] [address] [place] [address] Dr. Benito To Urea nitrogen [Mass/Vol] 45.0 mg/dL Critically high 7.0-18.0 [facility] Comment on above: Performed By: #### T NS, PRBC #### [facility] [address] [place] [address] Dr. Benito To Urea nitrogen/Creatinine [Mass ratio] 23.0 mg/mg Normal [facility] Comment on above: Performed By: #### T NS, PRBC #### [facility] [address] [place] [address] Dr. Benito To TYPE AND SCREENon 12-03-2022 TYPE AND SCREEN Negative Normal [facility] Comment on above: Performed By: #### P RBC, TNS #### [facility] [address] [place] [address] Dr. Benito To Ambulatory Visit Summaryon 0 [...] 40 mg Cap-DR) potassium chloride (Potassium Chloride (Qrj-Macj-Eny M20) 20 mEq oral tablet, extended release) [...] PM EDT With: FLASH PEARL MD Where: [facility] Ambulatory Visit Summary SANDIP BROUSSARD :1940 [...] 40 mg Cap-DR) potassium chloride (Potassium Chloride (Vrk-Qaru-Kvo M20) 20 mEq oral tablet, extended release) [...] Appointments Friday. 2022 1:20 PM EDT With: RYANNE SEN, FLASH Holden Where: [facility] Normal [facility] CBC W Auto Differential pane l (Bld)on 11-20-2022 Anisocytosis Ql (Bld) Present Normal [facility] Comment on above: Order Comment: Speci men Type: BLOOD SPECIMENOrdering Facility: [facility] Address: [address] [address] Performed By: #### 5 7021-8 ####[facility] LABCLIA [id number] [address] LABCLIA [id number] [place] [address] [place] Basophils (Bld) [#/Vol] 0.06 10*3/uL Normal <0.11 [facility] Comment on above: Order Comment: Speci men Type: BLOOD SPECIMENOrdering Facility: [facility] Address: [address] [address] Performed By: #### 5 7021-8 ####[facility] LABCLIA [id number] [address] LABCLIA [id number] [place] [address] [place] Basophils/100 WBC (Bld) 1.0 % Normal [facility] Comment on above: Order Comment: Speci men Type: BLOOD SPECIMENOrdering Facility: [facility] Address: [address] [place] [address] Performed By: #### 5 7021-8 ####[facility] LABCLIA [id number] [address] LABCLIA [id number] [place] [address] [place] Differential cell count method Nom (Bld) Manual Normal [facility] Comment on above: Order Comment: Speci men Type: BLOOD SPECIMENOrdering Facility: [facility] Address: [address] [place] [address] Performed By: #### 5 7021-8 ####[facility] LABCLIA [id number] [address] LABCLIA [id number] [place] [address] [place] DYSPLASTIC PMNS Occasional Normal [facility] Comment on above: Order Comment: Speci men Type: BLOOD SPECIMENOrdering Facility: [facility] Address: [address] [place] [address] Performed By: #### 5 7021-8 ####[facility] LABCLIA [id number] [address] LABCLIA [id number] [place] [address] [place] Eosinophils (Bld) [#/Vol] 0.00 10*3/uL Normal <0.46 [facility] Comment on above: Order Comment: Speci men Type: BLOOD SPECIMENOrdering Facility: [facility] Address: [address] [place] [address] Performed By: #### 5 7021-8 ####[facility] LABCLIA [id number] [address] [id number] LABCLIA [id number] [place] [address] [place] Eosinophils/100 WBC (Bld) 0.0 % Normal [facility] Comment on above: Order Comment: Speci men Type: BLOOD SPECIMENOrdering Facility: [facility] Address: [address] [place] [address] Performed By: #### 5 7021-8 ####[facility] LABCLIA [id number] [address] LABCLIA [id number] [place] [address] [place] Erythrocyte distribution width (RBC) [Ratio] 25.0 % High 11.5-15.0 [facility] Comment on above: Order Comment: Speci men Type: BLOOD SPECIMENOrdering Facility: [facility] Address: [address] [place] [address] Performed By: #### 5 7021-8 ####[facility] LABCLIA [id number] [address] LABCLIA [id number] [place] [address] [place] Hematocrit (Bld) [Volume fraction] 25.0 % Low 39.0-51.0 [facility] Comment on above: Order Comment: Speci men Type: BLOOD SPECIMENOrdering Facility: [facility] Address: [address] [place], [place] [address] Performed By: #### 5 7021-8 ####[facility] LABCLIA [id number] [address] LABCLIA [id number] [place] [address] [place] Hemoglobin (Bld) [Mass/Vol] 7.9 g/dL Low 13.0-17.0 [facility] Comment on above: Order Comment: Speci men Type: BLOOD SPECIMENOrdering Facility: [facility] Address: [address] [place] [address] Performed By: #### 5 7021-8 ####[facility] LABCLIA [id number] [address] LABCLIA [id number] [place] [address] [place] Lymphocytes (Bld) [#/Vol] 1.60 10*3/uL Normal 1.00-4.00 [facility] Comment on above: Order Comment: Speci men Type: BLOOD SPECIMENOrdering Facility: [facility] Address: [address] [place] [address] Performed By: #### 5 7021-8 ####[facility] LABCLIA [id number] [address] LABCLIA [id number] [place] [address] [place] Lymphocytes/100 WBC (Bld) 25.0 % Normal [facility] Comment on above: Order Comment: Speci men Type: BLOOD SPECIMENOrdering Facility: [facility] Address: [address] [place] [address] Performed By: #### 5 7021-8 ####[facility] LABCLIA [id number] [address] LABCLIA [id number] [place] [address] [place] MCH (RBC) [Entitic mass] 32.5 pg Normal 26.0-34.0 [facility] Comment on above: Order Comment: Speci men Type: BLOOD SPECIMENOrdering Facility: [facility] Address: [address] [place] [address] Performed By: #### 5 7021-8 ####[facility] LABCLIA [id number] [address] [id number] LABCLIA [id number] [place] [address] [place] MCHC (RBC) [Mass/Vol] 31.6 g/dL Normal 30.5-36.0 [facility] Comment on above: Order Comment: Speci men Type: BLOOD SPECIMENOrdering Facility: [facility] Address: [address] [place] [address] Performed By: #### 5 7021-8 ####[facility] LABCLIA [id number] [address] LABCLIA [id number] [place] [address] [place] MCV (RBC) [Entitic vol] 102.9 fL High 80.0-100.0 [facility] Comment on above: Order Comment: Speci men Type: BLOOD SPECIMENOrdering Facility: [facility] Address: [address] [place], [place] [address] Performed By: #### 5 7021-8 ####[facility] LABCLIA [id number] [address] LABCLIA [id number] [place] [address] [place] Metamyelocytes/100 WBC (Bld) 1.0 % Normal [facility] Comment on above: Order Comment: Speci men Type: BLOOD SPECIMENOrdering Facility: [facility] Address: [address] [place], [place] [address] Performed By: #### 5 7021-8 ####[facility] LABCLIA [id number] [address] LABCLIA [id number] [place] [address] [place] Monocytes (Bld) [#/Vol] 1.15 10*3/uL High <0.87 [facility] Comment on above: Order Comment: Speci men Type: BLOOD SPECIMENOrdering Facility: [facility] Address: [address] [place] [address] Performed By: #### 5 7021-8 ####[facility] LABCLIA [id number] [address] LABCLIA [id number] [place] [address] [place] Monocytes/100 WBC (Bld) 18.0 % Normal [facility] Comment on above: Order Comment: Speci men Type: BLOOD SPECIMENOrdering Facility: [facility] Address: [address] [place] [address] Performed By: #### 5 7021-8 ####[facility] LABCLIA [id number] [address] LABCLIA [id number] [place] [address] [place] MYELO% 14.0 % Normal [facility] Comment on above: Order Comment: Speci men Type: BLOOD SPECIMENOrdering Facility: [facility] Address: [address] [place] [address] Performed By: #### 5 7021-8 ####[facility] LABCLIA [id number] [address] LABCLIA [id number] [place] [address] [place] Neutrophils (Bld) [#/Vol] 2.63 10*3/uL Normal 1.45-7.50 [facility] Comment on above: Order Comment: Speci men Type: BLOOD SPECIMENOrdering Facility: [facility] Address: [address] [place] [address] Performed By: #### 5 7021-8 ####[facility] LABCLIA [id number] [address] LABCLIA [id number] [place] [address] [place] Neutrophils/100 WBC (Bld) 41.0 % Normal [facility] Comment on above: Order Comment: Speci men Type: BLOOD SPECIMENOrdering Facility: [facility] Address: [address] [place] [address] Performed By: #### 5 7021-8 ####[facility] LABCLIA [id number] [address] LABCLIA [id number] [place] [address] [place] Nucleated RBC (Bld) [#/Vol] 10*3/uL Normal <0.01 [facility] Comment on above: Order Comment: Speci men Type: BLOOD SPECIMENOrdering Facility: [facility] Address: [address] [place] [address] Performed By: #### 5 7021-8 ####[facility] LABCLIA [id number] [address] LABCLIA [id number] [place] [address] [place] Nucleated RBC/100 WBC (Bld) [Ratio] 0.0 /100 WBC Normal [facility] Comment on above: Order Comment: Speci men Type: BLOOD SPECIMENOrdering Facility: [facility] Address: [address] [place], [place] [address] Performed By: #### 5 7021-8 ####[facility] LABCLIA [id number] [address] LABCLIA [id number] [place] [address] [place] Ovalocytes LM Ql (Bld) Few Normal [facility] Comment on above: Order Comment: Speci men Type: BLOOD SPECIMENOrdering Facility: [facility] Address: [address] [place] [address] Performed By: #### 5 7021-8 ####[facility] LABCLIA [id number] [address] LABCLIA [id number] [place] [address] [place] Platelet mean volume (Bld) [Entitic vol] 15.0 fL High 9.0-12.7 [facility] Comment on above: Order Comment: Speci men Type: BLOOD SPECIMENOrdering Facility: [facility] Address: [address] [address] Performed By: #### 5 7021-8 ####[facility] LABCLIA [id number] [address] LABCLIA [id number] [place] [address] [place] Platelets (Bld) [#/Vol] 121 10*3/uL Low 150-400 [facility] Comment on above: Order Comment: Speci men Type: BLOOD SPECIMENOrdering Facility: [facility] Address: [address] [address] Result Comment: Resu lts checked and verified.No clot detected. Performed By: #### 5 7021-8 ####[facility] LABCLIA [id number] [address] LABCLIA [id number] [place] [address] [place] Platelets Estimate (Bld) [#/Vol] Decreased Normal [facility] Comment on above: Order Comment: Speci men Type: BLOOD SPECIMENOrdering Facility: [facility] Address: [address] [address] Performed By: #### 5 7021-8 ####[facility] LABCLIA [id number] [address] LABCLIA [id number] [place] [address] [place] Polychromasia LM Ql (Bld) Slight Normal [facility] Comment on above: Order Comment: Speci men Type: BLOOD SPECIMENOrdering Facility: [facility] Address: [address] [place] [address] Performed By: #### 5 7021-8 ####[facility] LABCLIA [id number] [address] LABCLIA [id number] [place] [address] [place] RBC (Bld) [#/Vol] 2.43 10*6/uL Low 4.20-6.00 [facility] Comment on above: Order Comment: Speci men Type: BLOOD SPECIMENOrdering Facility: [facility] Address: [address] [place] [address] Performed By: #### 5 7021-8 ####[facility] LABCLIA [id number] [address] LABCLIA [id number] [place] [address] [place] RED CELL MORPH Reviewed: see result s of individual morphologies Normal [facility] Comment on above: Order Comment: Speci men Type: BLOOD SPECIMENOrdering Facility: [facility] Address: [address] [place], [place] [address] Performed By: #### 5 7021-8 ####[facility] LABCLIA [id number] [address] LABCLIA [id number] [place] [address] [place] WBC (Bld) [#/Vol] 6.41 10*3/uL Normal 3.70-11.00 [facility] Comment on above: Order Comment: Speci men Type: BLOOD SPECIMENOrdering Facility: [facility] Address: [address] [place], [place] [id number] Result Comment: Resu lts checked and verified.No clot detected. Performed By: #### 5 7021-8 ####[facility] LABCLIA [id number] [place], [place] [address] LABCLIA [id number] [place] [address] [place] WBC Left Shift Ql (Bld) Present Normal [facility] Comment on above: Order Comment: Speci men Type: BLOOD SPECIMENOrdering Facility: [facility] Address: [address] [address] Performed By: #### 5 7021-8 ####[facility] LABCLIA [id number] [address] LABCLIA [id number] [place] [address] [place] CNOVSPon 11-20-2022 CNOVSP Normal [facility] CNPNon 11-20-2022 CNPN Normal [facility] Comprehensive metabolic 2000 panelon 11-20-2022 Albumin [Mass/Vol] 3.6 g/dL Low 3.9-4.9 [facility] Comment on above: Order Comment: Speci men Type: BLOOD SPECIMENOrdering Facility: [facility] Address: [address] [address] Performed By: #### 2 4323-8 ####[facility] LABCLIA [id number] [place] [address] ALP [Catalytic activity/Vol] 184 U/L High 38-113 [facility] Comment on above: Order Comment: Speci men Type: BLOOD SPECIMENOrdering Facility: [facility] Address: [address] [place] [address] Performed By: #### 2 4323-8 ####[facility] LABCLIA [id number] [place] [address] ALT [Catalytic activity/Vol] 76 U/L High 10-54 [facility] Comment on above: Order Comment: Speci men Type: BLOOD SPECIMENOrdering Facility: [facility] Address: [address] [address] Performed By: #### 2 4323-8 ####[facility] LABCLIA [id number] [place] [address] Anion gap [Moles/Vol] 10 mmol/L Normal 9-18 [facility] Comment on above: Order Comment: Speci men Type: BLOOD SPECIMENOrdering Facility: [facility] Address: [address] [place] [address] Performed By: #### 2 4323-8 ####[facility] LABCLIA [id number] [place] [address] AST [Catalytic activity/Vol] 46 U/L High 14-40 [facility] Comment on above: Order Comment: Speci men Type: BLOOD SPECIMENOrdering Facility: [facility] Address: [address] [place] [address] Performed By: #### 2 4323-8 ####[facility] LABCLIA [id number] [place] [address] Bilirubin [Mass/Vol] 0.7 mg/dL Normal 0.2-1.3 [facility] Comment on above: Order Comment: Speci men Type: BLOOD SPECIMENOrdering Facility: [facility] Address: [address] [place] [address] Performed By: #### 2 4323-8 ####[facility] LABCLIA [id number] [place] [address] Calcium [Mass/Vol] 9.4 mg/dL Normal 8.5-10.2 [facility] Comment on above: Order Comment: Speci men Type: BLOOD SPECIMENOrdering Facility: [facility] Address: [address] [address] Performed By: #### 2 4323-8 ####[facility] LABCLIA [id number] [place] [address] Chloride [Moles/Vol] 91 mmol/L Low 97-105 [facility] Comment on above: Order Comment: Speci men Type: BLOOD SPECIMENOrdering Facility: [facility] Address: [address] [place] [address] Performed By: #### 2 4323-8 ####[facility] LABCLIA [id number] [place] [address] CO2 [Moles/Vol] 37 mmol/L High 22-30 [facility] Comment on above: Order Comment: Speci men Type: BLOOD SPECIMENOrdering Facility: [facility] Address: [address] [place] [address] Performed By: #### 2 4323-8 ####[facility] LABCLIA [id number] [place] [address] Creatinine [Mass/Vol] 1.64 mg/dL High 0.73-1.22 [facility] Comment on above: Order Comment: Speci men Type: BLOOD SPECIMENOrdering Facility: [facility] Address: [address] [place] [address] Performed By: #### 2 4323-8 ####[facility] LABCLIA [id number] [place] [address] ESTIMATED GLOMERULAR FILTRATION RATE 41 mL/min/1.73m??? Low >=60 [facility] Comment on above: Order Comment: Speci men Type: BLOOD SPECIMENOrdering Facility: [facility] Address: [address] [place] [address] Result Comment: Faye mated Glomerular Filtration Rate [...] actual GFR. Performed By: #### 2 4323-8 ####[facility] LABCLIA [id number] [place] [address] Glucose [Mass/Vol] 168 mg/dL High 74-99 [facility] Comment on above: Order Comment: Speci men Type: BLOOD SPECIMENOrdering Facility: [facility] Address: [address] [place] [address] Result Comment: The [place] [employer] (ADA) provides guidance for cutoff [...] Standards of Medical Care in Diabetes 2016, [place] [employer]. Diabetes Care. 2016.39(Suppl 1). Performed By: #### 2 4323-8 ####[facility] LABCLIA [id number] [place] [address] Potassium [Moles/Vol] 3.8 mmol/L Normal 3.7-5.1 [facility] Comment on above: Order Comment: Speci men Type: BLOOD SPECIMENOrdering Facility: [facility] Address: [address] [place] [address] Performed By: #### 2 4323-8 ####[facility] LABCLIA [id number] [place] [address] Protein [Mass/Vol] 7.5 g/dL Normal 6.3-8.0 [facility] Comment on above: Order Comment: Speci men Type: BLOOD SPECIMENOrdering Facility: [facility] Address: [address] [place] [address] Performed By: #### 2 4323-8 ####[facility] LABCLIA [id number] [place] [address] Sodium [Moles/Vol] 138 mmol/L Normal 136-144 [facility] Comment on above: Order Comment: Speci men Type: BLOOD SPECIMENOrdering Facility: [facility] Address: [address] [id number] Performed By: #### 2 4323-8 ####[facility] LABCLIA [id number] [place] [address] Urea nitrogen [Mass/Vol] 50 mg/dL High 9-24 [facility] Comment on above: Order Comment: Speci men Type: BLOOD SPECIMENOrdering Facility: [facility] Address: [address] [address] Performed By: #### 2 4323-8 ####[facility] LABCLIA [id number] [place] [address] Echocardiographyon Echocardiography [id number]#1.00C D:127 Normal [facility] Office/Clini c Noteon 11-20-2022 [...] mg= 1 cap(s), Oral, Daily Potassium Chloride (Snf-Iuug-Xds M20) 20 mEq oral tablet, extended release, [...] virus vaccine, inactivated 05/23/[address] [facility] Comment on above: Result Comment: Elec tronically Signed By: RYANNE SEN, FLASH Holden\.br\Date and Time Signed: 11/20/22 14:24 EDT Family [...] mg= 1 cap(s), Oral, Daily Potassium Chloride (Zkx-Hnnv-Qcn M20) 20 mEq oral tablet, extended release, [...] smoker, q (more content not included)... Normal [facility] Comment on above: Result Comment: Elec tronically Signed By: RYANNE SEN, FLASH Holden\.br\Date and Time Signed: 11/20/22 14:14 EDT RAD - MISCon 11-20-2022 RAD - MISC [id number]#1.00C D:127 Normal [facility] CNPNon 11-19-2022 CNPN Normal [facility] BNPon 11-17-2022 Natriuretic peptide B (Bld) [Mass/Vol] 6221.0 pg/mL Critically high <=1,800.0 [facility] Comment on above: Performed By: #### T NS, PRBC #### [facility] [address] [place] [address] Dr. Benito To CBC AUTO DIFFon 11-17-2022 BASO # 0.1 103/ul Normal 0.0-0.1 [facility] Comment on above: Performed By: #### T NS, PRBC #### [facility] [address] [place] [address] Dr. Benito To Basophils/100 WBC (Bld) 1.1 % Normal 0.2-2.0 [facility] Comment on above: Performed By: #### T NS, PRBC #### [facility] [address] [place] [address] Dr. Benito To EO # 0.0 103/ul Normal 0.0-0.7 [facility] Comment on above: Performed By: #### T NS, PRBC #### [facility] [address] [place] [address] Dr. Benito To Eosinophils/100 WBC (Bld) 0.0 % Critically low 0.9-7.0 [facility] Comment on above: Performed By: #### T NS, PRBC #### [facility] [address] [place] [address] Dr. Benito To Erythrocyte distribution width (RBC) [Ratio] 23.8 % Critically high 11.0-15.0 [facility] Comment on above: Performed By: #### T NS, PRBC #### [facility] [address] [place] [address] Dr. Benito To Hematocrit (Bld) [Volume fraction] 22.0 % Critically low 42.0-54.0 [facility] Comment on above: Performed By: #### T NS, PRBC #### [facility] [address] [place] [address] Dr. Benito To Hemoglobin (Bld) [Mass/Vol] 7.0 g/dL Critically low 14.0-18.0 [facility] Comment on above: Performed By: #### T NS, PRBC #### [facility] [address] [place] [address] Dr. Benito To IG # 1.95 10e3/ul Critically high 0.00-0.03 [facility] Comment on above: Performed By: #### T NS, PRBC #### [facility] [address] [place] [address] Dr. Benito To IG % 24.9 % Critically high 0.0-0.5 [facility] Comment on above: Performed By: #### T NS, PRBC #### [facility] [address] [place] [address] Dr. Benito To LYMPH # 1.1 103/ul Critically low 1.2-3.8 [facility] Comment on above: Performed By: #### T NS, PRBC #### [facility] [address] [place] [address] Dr. Benito To Lymphocytes/100 WBC (Bld) 13.8 % Critically low 20.5-60.0 [facility] Comment on above: Performed By: #### T NS, PRBC #### [facility] [address] [place] [address] Dr. Benito To MANUAL DIFF REQ NO Normal [facility] Comment on above: Performed By: #### T NS, PRBC #### [facility] [address] [place] [address] Dr. Benito To MCH (RBC) [Entitic mass] 32.0 pg Normal 25.9-34.0 [facility] Comment on above: Performed By: #### T NS, PRBC #### [facility] [address] [place] [address] Dr. Benito To MCHC (RBC) [Mass/Vol] 31.8 g/dL Normal 29.9-35.2 [facility] Comment on above: Performed By: #### T NS, PRBC #### [facility] [address] [place] [address] Dr. Benito To MCV (RBC) [Entitic vol] 100.5 fL Critically high 80.0-94.0 [facility] Comment on above: Performed By: #### T NS, PRBC #### [facility] [address] [place] [address] Dr. Bentio To MONO # 1.1 103/ul Critically high 0.3-0.8 [facility] Comment on above: Performed By: #### T NS, PRBC #### [facility] [address] [place] [address] Dr. Benito To Monocytes/100 WBC (Bld) 14.4 % Critically high 1.7-12.0 [facility] Comment on above: Performed By: #### T NS, PRBC #### [facility] [address] [place] [address] Dr. Benito To NEUT # 3.6 103/ul Normal 1.4-6.5 [facility] Comment on above: Performed By: #### T NS, PRBC #### [facility] [address] [place] [address] Dr. Benito To Neutrophils/100 WBC (Bld) 45.8 % Normal 43.0-75.0 [facility] Comment on above: Performed By: #### T NS, PRBC #### [facility] [address] [place] [address] Dr. Benito To Platelet mean volume (Bld) [Entitic vol] 0.0 fL Critically low 9.5-13.5 [facility] Comment on above: Performed By: #### T NS, PRBC #### [facility] [address] [place] [address] Dr. Benito To PLT 92 103/ul Critically low 150-450 [facility] Comment on above: Performed By: #### T NS, PRBC #### [facility] [address] [address] [address] Benito To RBC 2.19 106/ul Critically low 4.70-6.10 [facility] Comment on above: Performed By: #### T NS, PRBC #### [facility] [address] [address] [address] Benito To WBC 7.8 103/ul Normal 4.0-11.0 [facility] Comment on above: Performed By: #### T NS, PRBC #### [facility] [address] [address] [address] Benito To PROF 14(COMP METB)on 023 Albumin [Mass/Vol] 2.5 g/dL Critically low 3.4-5.0 [facility] Comment on above: Performed By: #### H GBHCT #### [facility] [address] [place] [address] Dr. Benito To Albumin/Globulin [Mass ratio] 0.6 {ratio} Normal [facility] Comment on above: Performed By: #### H GBHCT #### [facility] [address] [place] [address] Dr. Benito To ALP [Catalytic activity/Vol] 148 U/L Critically high 46-116 [facility] Comment on above: Performed By: #### H GBHCT #### [facility] [address] [address] [address] Benito To ALT [Catalytic activity/Vol] 61 U/L Normal 16-63 [facility] Comment on above: Performed By: #### H GBHCT #### [facility] [address] [address] [address] Benito To Anion gap [Moles/Vol] 8.5 mmol/L Normal [facility] Comment on above: Performed By: #### H GBHCT #### [facility] [address] [place] [address] Dr. Benito To AST [Catalytic activity/Vol] 43 U/L Critically high 15-37 [facility] Comment on above: Performed By: #### H GBHCT #### [facility] [address] [address] [address] Benito To Bilirubin [Mass/Vol] 0.8 mg/dL Normal 0.2-1.0 [facility] Comment on above: Performed By: #### H GBHCT #### [facility] [address] [address] [address] Benito To Calcium [Mass/Vol] 8.4 mg/dL Critically low 8.5-10.1 [facility] Comment on above: Performed By: #### H GBHCT #### [facility] [address] [address] [address] Benito To Chloride [Moles/Vol] 101 mmol/L Normal 98-107 [facility] Comment on above: Performed By: #### H GBHCT #### [facility] [address] [address] [address] Benito To CO2 [Moles/Vol] 37.8 mmol/L Critically high 21.0-32.0 [facility] Comment on above: Performed By: #### H GBHCT #### [facility] [address] [address] [address] Benito To Creatinine [Mass/Vol] 1.77 mg/dL Critically high 0.70-1.30 [facility] Comment on above: Performed By: #### H GBHCT #### [facility] [address] [address] [address] Benito To EGFR-AF GAMBIAN 45 mL/min/1.73m2 Critically low >=60 [facility] Comment on above: Performed By: #### H GBHCT #### [facility] [address] [address] [address] Benito To EGFR-NON AF GAMBIAN 37 mL/min/1.73m2 Critically low >=60 [facility] Comment on above: Performed By: #### H GBHCT #### [facility] [address] [address] [address] Benito To Globulin (S) [Mass/Vol] 4.3 g/dL Normal [facility] Comment on above: Performed By: #### H GBHCT #### [facility] [address] [address] [address] Benito To Glucose [Mass/Vol] 107 mg/dL Critically high 74-106 [facility] Comment on above: Performed By: #### H GBHCT #### [facility] [address] [place] [address] Dr. Benito To Potassium [Moles/Vol] 3.3 mmol/L Critically low 3.5-5.1 [facility] Comment on above: Performed By: #### H GBHCT #### [facility] [address] [place] [address] Dr. Benito To Protein [Mass/Vol] 6.8 g/dL Normal 6.4-8.2 [facility] Comment on above: Performed By: #### H GBHCT #### [facility] [address] [place] [address] Dr. Benito To Sodium [Moles/Vol] 144 mmol/L Normal 136-145 [facility] Comment on above: Performed By: #### H GBHCT #### [facility] [address] [place] [address] Dr. Benito To Urea nitrogen [Mass/Vol] 40.0 mg/dL Critically high 7.0-18.0 [facility] Comment on above: Performed By: #### H GBHCT #### [facility] [address] [place] [address] Dr. Benito To Urea nitrogen/Creatinine [Mass ratio] 22.6 mg/mg Normal [facility] Comment on above: Performed By: #### H GBHCT #### [facility] [address] [place] [address] Dr. Benito To BNPon 11-16-2022 Natriuretic peptide B (Bld) [Mass/Vol] 33828.0 pg/mL Critically high <=1,800.0 [facility] Comment on above: Performed By: #### T NS, PRBC #### [facility] [address] [place] [address] Dr. Benito To CBC AUTO DIFFon 11-16-2022 BASO # 0.1 103/ul Normal 0.0-0.1 [facility] Comment on above: Performed By: #### T NS, PRBC #### [facility] [address] [address] [address] Benito To Basophils/100 WBC (Bld) 0.6 % Normal 0.2-2.0 [facility] Comment on above: Performed By: #### T NS, PRBC #### [facility] [address] [address] [address] Benito To EO # 0.6 103/ul Normal 0.0-0.7 [facility] Comment on above: Performed By: #### T NS, PRBC #### [facility] [address] [place] [address] Dr. Benito To Eosinophils/100 WBC (Bld) 5.1 % Normal 0.9-7.0 [facility] Comment on above: Performed By: #### T NS, PRBC #### [facility] [address] [place] [address] Dr. Benito To Erythrocyte distribution width (RBC) [Ratio] 23.6 % Critically high 11.0-15.0 [facility] Comment on above: Performed By: #### T NS, PRBC #### [facility] [address] [place] [address] Dr. Benito To Hematocrit (Bld) [Volume fraction] 22.3 % Critically low 42.0-54.0 [facility] Comment on above: Performed By: #### T NS, PRBC #### [facility] [address] [place] [address] Dr. Benito To Hemoglobin (Bld) [Mass/Vol] 7.2 g/dL Critically low 14.0-18.0 [facility] Comment on above: Performed By: #### T NS, PRBC #### [facility] [address] [place] [address] Dr. Benito To IG # 1.56 10e3/ul Critically high 0.00-0.03 [facility] Comment on above: Performed By: #### T NS, PRBC #### [facility] [address] [address] [address] Benito To IG % 14.4 % Critically high 0.0-0.5 [facility] Comment on above: Performed By: #### T NS, PRBC #### [facility] [address] [address] [address] Benito To LYMPH # 1.3 103/ul Normal 1.2-3.8 [facility] Comment on above: Performed By: #### T NS, PRBC #### [facility] [address] [place] [address] Dr. Benito To Lymphocytes/100 WBC (Bld) 12.1 % Critically low 20.5-60.0 [facility] Comment on above: Performed By: #### T NS, PRBC #### [facility] [address] [place] [address] Dr. Benito To MANUAL DIFF REQ NO Normal [facility] Comment on above: Performed By: #### T NS, PRBC #### [facility] [address] [place] [address] Dr. Benito To MCH (RBC) [Entitic mass] 32.4 pg Normal 25.9-34.0 [facility] Comment on above: Performed By: #### T NS, PRBC #### [facility] [address] [place] [address] Dr. Benito To MCHC (RBC) [Mass/Vol] 32.3 g/dL Normal 29.9-35.2 [facility] Comment on above: Performed By: #### T NS, PRBC #### [facility] [address] [place] [address] Dr. Benito To MCV (RBC) [Entitic vol] 100.5 fL Critically high 80.0-94.0 [facility] Comment on above: Performed By: #### T NS, PRBC #### [facility] [address] [place] [address] Dr. Benito To MONO # 1.7 103/ul Critically high 0.3-0.8 [facility] Comment on above: Performed By: #### T NS, PRBC #### [facility] [address] [place] [address] Dr. Benito To Monocytes/100 WBC (Bld) 15.3 % Critically high 1.7-12.0 [facility] Comment on above: Performed By: #### T NS, PRBC #### [facility] [address] [place] [address] Dr. Benito To NEUT # 5.7 103/ul Normal 1.4-6.5 [facility] Comment on above: Performed By: #### T NS, PRBC #### [facility] [address] [place] [address] Dr. Benito To Neutrophils/100 WBC (Bld) 52.5 % Normal 43.0-75.0 [facility] Comment on above: Performed By: #### T NS, PRBC #### [facility] [address] [place] [address] Dr. Benito To Platelet mean volume (Bld) [Entitic vol] 0.0 fL Critically low 9.5-13.5 [facility] Comment on above: Performed By: #### T NS, PRBC #### [facility] [address] [place] [address] Dr. Benito To PLT 83 103/ul Critically low 150-450 [facility] Comment on above: Performed By: #### T NS, PRBC #### [facility] [address] [place] [address] Dr. Benito To RBC 2.22 106/ul Critically low 4.70-6.10 [facility] Comment on above: Performed By: #### T NS, PRBC #### [facility] [address] [place] [address] Dr. Benito To WBC 10.8 103/ul Normal 4.0-11.0 [facility] Comment on above: Performed By: #### T NS, PRBC #### [facility] [address] [place] [address] Dr. Benito To PROF 14(COMP METB)on 023 Albumin [Mass/Vol] 2.5 g/dL Critically low 3.4-5.0 [facility] Comment on above: Performed By: #### T NS, PRBC #### [facility] [address] [address] [address] Benito To Albumin/Globulin [Mass ratio] 0.6 {ratio} Normal [facility] Comment on above: Performed By: #### T NS, PRBC #### [facility] [address] [address] [address] Benito To ALP [Catalytic activity/Vol] 133 U/L Critically high 46-116 [facility] Comment on above: Performed By: #### T NS, PRBC #### [facility] [address] [address] [address] Benito To ALT [Catalytic activity/Vol] 56 U/L Normal 16-63 [facility] Comment on above: Performed By: #### T NS, PRBC #### [facility] [address] [address] [address] Benito To Anion gap [Moles/Vol] 11.8 mmol/L Normal [facility] Comment on above: Performed By: #### T NS, PRBC #### [facility] [address] [address] [address] Benito To AST [Catalytic activity/Vol] 35 U/L Normal 15-37 [facility] Comment on above: Performed By: #### T NS, PRBC #### [facility] [address] [place] [address] Dr. Benito To Bilirubin [Mass/Vol] 0.9 mg/dL Normal 0.2-1.0 [facility] Comment on above: Performed By: #### T NS, PRBC #### [facility] [address] [address] [address] Benito To Calcium [Mass/Vol] 8.4 mg/dL Critically low 8.5-10.1 [facility] Comment on above: Performed By: #### T NS, PRBC #### [facility] [address] [address] [address] Benito To Chloride [Moles/Vol] 101 mmol/L Normal 98-107 [facility] Comment on above: Performed By: #### T NS, PRBC #### [facility] [address] [address] [address] Benito To CO2 [Moles/Vol] 32.2 mmol/L Critically high 21.0-32.0 [facility] Comment on above: Performed By: #### T NS, PRBC #### [facility] [address] [address] [address] Benito To Creatinine [Mass/Vol] 1.89 mg/dL Critically high 0.70-1.30 [facility] Comment on above: Performed By: #### T NS, PRBC #### [facility] [address] [place] [address] Dr. Benito To EGFR-AF GAMBIAN 41 mL/min/1.73m2 Critically low >=60 [facility] Comment on above: Performed By: #### T NS, PRBC #### [facility] [address] [place] [address] Dr. Benito To EGFR-NON AF GAMBIAN 34 mL/min/1.73m2 Critically low >=60 [facility] Comment on above: Performed By: #### T NS, PRBC #### [facility] [address] [place] [address] Dr. Benito To Globulin (S) [Mass/Vol] 4.5 g/dL Normal [facility] Comment on above: Performed By: #### T NS, PRBC #### [facility] [address] [place] [address] Dr. Benito To Glucose [Mass/Vol] 105 mg/dL Normal 74-106 [facility] Comment on above: Performed By: #### T NS, PRBC #### [facility] [address] [place] [address] Dr. Benito To Potassium [Moles/Vol] 2.9 mmol/L Critically low 3.5-5.1 [facility] Comment on above: Performed By: #### T NS, PRBC #### [facility] [address] [address] [address] Benito To Protein [Mass/Vol] 7.0 g/dL Normal 6.4-8.2 [facility] Comment on above: Performed By: #### T NS, PRBC #### [facility] [address] [address] [address] Benito To Sodium [Moles/Vol] 140 mmol/L Normal 136-145 [facility] Comment on above: Performed By: #### T NS, PRBC #### [facility] [address] [address] [address] Benito To Urea nitrogen [Mass/Vol] 39.0 mg/dL Critically high 7.0-18.0 [facility] Comment on above: Performed By: #### T NS, PRBC #### [facility] [address] [address] [address] Benito To Urea nitrogen/Creatinine [Mass ratio] 20.6 mg/mg Normal [facility] Comment on above: Performed By: #### T NS, PRBC #### [facility] [address] [place] [address] Dr. Benito To XR CHEST 1 Von [...] JOSIE MIRAMONTES Date: 2022-11-16 13:55 Normal [facility] CBC W MANUAL DIFFon 11-16-19 23 ANISOCYTOSIS 3+ Normal [facility] Comment on above: Performed By: #### T NS, PRBC #### [facility] [address] [address] [address] Benito To ATYPICAL LYMPH # 0.71 103/ul Normal [facility] Comment on above: Performed By: #### T NS, PRBC #### [facility] [address] [place] [address] Dr. Benito To ATYPICAL LYMPH % 6 % Normal [facility] Comment on above: Performed By: #### T NS, PRBC #### [facility] [address] [place] [address] Dr. Benito To BAND # 1.3 103/ul Critically high 0.0-0.3 [facility] Comment on above: Performed By: #### T NS, PRBC #### [facility] [address] [place] [address] Dr. Benito To BAND % 11 % Critically high 0-5 [facility] Comment on above: Performed By: #### T NS, PRBC #### [facility] [address] [place] [address] Dr. Benito To BASOM # 0.00 103/ul Normal 0.00-0.10 [facility] Comment on above: Performed By: #### T NS, PRBC #### [facility] [address] [place] [address] Dr. Benito To BASOM % 0.0 % Critically low 0.2-2.0 [facility] Comment on above: Performed By: #### T NS, PRBC #### [facility] [address] [place] [address] Dr. Benito To BLAST # Normal [facility] Comment on above: Performed By: #### T NS, PRBC #### [facility] [address] [place] [address] Dr. Benito To BLAST % Normal [facility] Comment on above: Performed By: #### T NS, PRBC #### [facility] [address] [place] [address] Dr. Benito To CORRECTED WBC Normal 4.0-11.0 [facility] Comment on above: Performed By: #### T NS, PRBC #### [facility] [address] [address] [address] Benito To EOS # 0.00 103/ul Normal 0.00-0.70 [facility] Comment on above: Performed By: #### T NS, PRBC #### [facility] [address] [address] [address] Benito To EOS% 0.0 % Critically low 0.9-7.0 [facility] Comment on above: Performed By: #### T NS, PRBC #### [facility] [address] [address] [address] Benito To HCT 24.3 % Critically low 42.0-54.0 [facility] Comment on above: Performed By: #### T NS, PRBC #### [facility] [address] [place] [address] Dr. Benito To HGB 7.5 g/dl Critically low 14.0-18.0 [facility] Comment on above: Performed By: #### T NS, PRBC #### [facility] [address] [address] [address] Benito To LYMPHM # 1.55 103/ul Normal 1.20-3.80 [facility] Comment on above: Performed By: #### T NS, PRBC #### [facility] [address] [address] [address] Benito To LYMPHM% 13.0 % Critically low 20.5-60.0 [facility] Comment on above: Performed By: #### T NS, PRBC #### [facility] [address] [address] [address] Benito To MCH 30.9 pg Normal 25.9-34.0 [facility] Comment on above: Performed By: #### T NS, PRBC #### [facility] [address] [address] [address] Benito To MCHC 30.9 g/dl Normal 29.9-35.2 [facility] Comment on above: Performed By: #### T NS, PRBC #### [facility] [address] [place] [address] Dr. Benito To MCV 100.0 fL Critically high 80.0-94.0 [facility] Comment on above: Performed By: #### T NS, PRBC #### [facility] [address] [place] [address] Dr. Benito To METAMYELOCYTE # Normal [facility] Comment on above: Performed By: #### T NS, PRBC #### [facility] [address] [place] [address] Dr. Benito To METAMYELOCYTE % Normal [facility] Comment on above: Performed By: #### T NS, PRBC #### [facility] [address] [place] [address] Dr. Benito To MONOM# 0.59 103/ul Normal 0.30-0.80 [facility] Comment on above: Performed By: #### T NS, PRBC #### [facility] [address] [place] [address] Dr. Benito To MONOM% 5.0 % Normal 1.7-12.0 [facility] Comment on above: Performed By: #### T NS, PRBC #### [facility] [address] [place] [address] Dr. Benito To MPV 0.0 fL Critically low 9.5-13.5 [facility] Comment on above: Performed By: #### T NS, PRBC #### [facility] [address] [place] [address] Dr. Benito To MYELOCYTE # 0.2 103/ul Normal [facility] Comment on above: Performed By: #### T NS, PRBC #### [facility] [address] [place] [address] Dr. Benito To MYELOCYTE % 2 % Normal [facility] Comment on above: Performed By: #### T NS, PRBC #### [facility] [address] [place] [address] Dr. Benito To NRBC Normal [facility] Comment on above: Performed By: #### T NS, PRBC #### [facility] [address] [address] [address] Benito To PLT 83 103/ul Critically low 150-450 [facility] Comment on above: Performed By: #### T NS, PRBC #### [facility] [address] [address] [address] Benito To RBC 2.43 106/ul Critically low 4.70-6.10 [facility] Comment on above: Performed By: #### T NS, PRBC #### [facility] [address] [address] [address] Benito To RDW 23.9 % Critically high 11.0-15.0 [facility] Comment on above: Performed By: #### T NS, PRBC #### [facility] [address] [address] [address] Benito To SEG # 7.50 103/ul Critically high 1.40-6.50 [facility] Comment on above: Performed By: #### T NS, PRBC #### [facility] [address] [address] [address] Benito To SEG % 63.0 % Normal 43.0-75.0 [facility] Comment on above: Performed By: #### T NS, PRBC #### [facility] [address] [address] [address] Benito To WBC 11.9 103/ul Critically high 4.0-11.0 [facility] Comment on above: Performed By: #### T NS, PRBC #### [facility] [address] [address] [address] Benito To PROF 14(COMP METB)on 023 Albumin [Mass/Vol] 2.6 g/dL Critically low 3.4-5.0 [facility] Comment on above: Performed By: #### T NS, PRBC #### [facility] [address] [address] [address] Benito To Albumin/Globulin [Mass ratio] 0.6 {ratio} Normal [facility] Comment on above: Performed By: #### T NS, PRBC #### [facility] [address] [address] [address] Benito To ALP [Catalytic activity/Vol] 139 U/L Critically high 46-116 [facility] Comment on above: Performed By: #### T NS, PRBC #### [facility] [address] [address] [address] Benito To ALT [Catalytic activity/Vol] 52 U/L Normal 16-63 [facility] Comment on above: Performed By: #### T NS, PRBC #### [facility] [address] [address] [address] Benito To Anion gap [Moles/Vol] 12.4 mmol/L Normal [facility] Comment on above: Performed By: #### T NS, PRBC #### [facility] [address] [address] [address] Benito To AST [Catalytic activity/Vol] 31 U/L Normal 15-37 [facility] Comment on above: Performed By: #### T NS, PRBC #### [facility] [address] [address] [address] Benito To Bilirubin [Mass/Vol] 1.3 mg/dL Critically high 0.2-1.0 [facility] Comment on above: Performed By: #### T NS, PRBC #### [facility] [address] [address] [address] Benito To Calcium [Mass/Vol] 8.2 mg/dL Critically low 8.5-10.1 [facility] Comment on above: Performed By: #### T NS, PRBC #### [facility] [address] [address] [address] Benito To Chloride [Moles/Vol] 100 mmol/L Normal 98-107 [facility] Comment on above: Performed By: #### T NS, PRBC #### [facility] [address] [address] [address] Benito To CO2 [Moles/Vol] 32.5 mmol/L Critically high 21.0-32.0 [facility] Comment on above: Performed By: #### T NS, PRBC #### [facility] [address] [address] [address] Benito To Creatinine [Mass/Vol] 1.85 mg/dL Critically high 0.70-1.30 [facility] Comment on above: Performed By: #### T NS, PRBC #### [facility] [address] [address] [address] Benito To EGFR-AF GAMBIAN 43 mL/min/1.73m2 Critically low >=60 [facility] Comment on above: Performed By: #### T NS, PRBC #### [facility] [address] [place] [address] Dr. Benito To EGFR-NON AF GAMBIAN 35 mL/min/1.73m2 Critically low >=60 [facility] Comment on above: Performed By: #### T NS, PRBC #### [facility] [address] [place] [address] Dr. Benito To Globulin (S) [Mass/Vol] 4.6 g/dL Normal [facility] Comment on above: Performed By: #### T NS, PRBC #### [facility] [address] [place] [address] Dr. Benito To Glucose [Mass/Vol] 124 mg/dL Critically high 74-106 [facility] Comment on above: Performed By: #### T NS, PRBC #### [facility] [address] [place] [address] Dr. Benito To Potassium [Moles/Vol] 3.9 mmol/L Normal 3.5-5.1 [facility] Comment on above: Performed By: #### T NS, PRBC #### [facility] [address] [place] [address] Dr. Benito To Protein [Mass/Vol] 7.2 g/dL Normal 6.4-8.2 [facility] Comment on above: Performed By: #### T NS, PRBC #### [facility] [address] [address] [address] Benito To Sodium [Moles/Vol] 141 mmol/L Normal 136-145 [facility] Comment on above: Performed By: #### T NS, PRBC #### [facility] [address] [address] [address] Benito To Urea nitrogen [Mass/Vol] 36.0 mg/dL Critically high 7.0-18.0 [facility] Comment on above: Performed By: #### T NS, PRBC #### [facility] [address] [address] [address] Benito To Urea nitrogen/Creatinine [Mass ratio] 19.5 mg/mg Normal [facility] Comment on above: Performed By: #### T NS, PRBC #### [facility] [address] [place] [address] Dr. Benito To XR CHEST 1 Von [...] JOSIE MIRAMONTES Date: 2022-11-15 09:46 Normal [facility] CBC AUTO DIFFon 11-14-2022 BASO # 0.0 103/ul Normal 0.0-0.1 [facility] Comment on above: Performed By: #### H GBHCT #### [facility] [address] [place] [address] Dr. Benito To Basophils/100 WBC (Bld) 0.3 % Normal 0.2-2.0 [facility] Comment on above: Performed By: #### H GBHCT #### [facility] [address] [place] [address] Dr. Benito To EO # 0.0 103/ul Normal 0.0-0.7 [facility] Comment on above: Performed By: #### H GBHCT #### [facility] [address] [place] [address] Dr. Benito To Eosinophils/100 WBC (Bld) 0.3 % Critically low 0.9-7.0 [facility] Comment on above: Performed By: #### H GBHCT #### [facility] [address] [place] [address] Dr. Benito To Erythrocyte distribution width (RBC) [Ratio] 23.7 % Critically high 11.0-15.0 [facility] Comment on above: Performed By: #### H GBHCT #### [facility] [address] [place] [address] Dr. Benito To Hematocrit (Bld) [Volume fraction] 23.7 % Critically low 42.0-54.0 [facility] Comment on above: Performed By: #### H GBHCT #### [facility] [address] [place] [address] Dr. Benito To Hemoglobin (Bld) [Mass/Vol] 7.6 g/dL Critically low 14.0-18.0 [facility] Comment on above: Performed By: #### H GBHCT #### [facility] [address] [place] [address] Dr. Benito To IG # 0.82 10e3/ul Critically high 0.00-0.03 [facility] Comment on above: Performed By: #### H GBHCT #### [facility] [address] [place] [address] Dr. Benito To IG % 7.0 % Critically high 0.0-0.5 [facility] Comment on above: Performed By: #### H GBHCT #### [facility] [address] [place] [address] Dr. Benito To LYMPH # 0.8 103/ul Critically low 1.2-3.8 [facility] Comment on above: Performed By: #### H GBHCT #### [facility] [address] [place] [address] Dr. Benito To Lymphocytes/100 WBC (Bld) 7.0 % Critically low 20.5-60.0 [facility] Comment on above: Performed By: #### H GBHCT #### [facility] [address] [place] [address] Dr. Benito To MANUAL DIFF REQ NO Normal [facility] Comment on above: Performed By: #### H GBHCT #### [facility] [address] [place] [address] Dr. Benito To MCH (RBC) [Entitic mass] 31.9 pg Normal 25.9-34.0 [facility] Comment on above: Performed By: #### H GBHCT #### [facility] [address] [place] [address] Dr. Benito To MCHC (RBC) [Mass/Vol] 32.1 g/dL Normal 29.9-35.2 [facility] Comment on above: Performed By: #### H GBHCT #### [facility] [address] [place] [address] Dr. Benito To MCV (RBC) [Entitic vol] 99.6 fL Critically high 80.0-94.0 [facility] Comment on above: Performed By: #### H GBHCT #### [facility] [address] [place] [address] Dr. Benito To MONO # 2.3 103/ul Critically high 0.3-0.8 [facility] Comment on above: Performed By: #### H GBHCT #### [facility] [address] [place] [address] Dr. Benito To Monocytes/100 WBC (Bld) 19.2 % Critically high 1.7-12.0 [facility] Comment on above: Performed By: #### H GBHCT #### [facility] [address] [place] [address] Dr. Benito To NEUT # 7.8 103/ul Critically high 1.4-6.5 [facility] Comment on above: Performed By: #### H GBHCT #### [facility] [address] [place] [address] Dr. Benito To Neutrophils/100 WBC (Bld) 66.2 % Normal 43.0-75.0 [facility] Comment on above: Performed By: #### H GBHCT #### [facility] [address] [place] [address] Dr. Beniot To Platelet mean volume (Bld) [Entitic vol] 14.7 fL Critically high 9.5-13.5 [facility] Comment on above: Performed By: #### H GBHCT #### [facility] [address] [address] [address] Benito To PLT 73 103/ul Critically low 150-450 [facility] Comment on above: Performed By: #### H GBHCT #### [facility] [address] [place] [address] Dr. Benito To RBC 2.38 106/ul Critically low 4.70-6.10 [facility] Comment on above: Performed By: #### H GBHCT #### [facility] [address] [place] [address] Dr. Benito To WBC 11.7 103/ul Critically high 4.0-11.0 [facility] Comment on above: Performed By: #### H GBHCT #### [facility] [address] [place] [address] Dr. Benito To CBC W MANUAL DIFFon 11-15-19 23 ANISOCYTOSIS 3+ Normal [facility] Comment on above: Performed By: #### T NS, PRBC #### [facility] [address] [place] [address] Dr. Benito To ATYPICAL LYMPH # Normal [facility] Comment on above: Performed By: #### T NS, PRBC #### [facility] [address] [place] [address] Dr. Benito To ATYPICAL LYMPH % Normal [facility] Comment on above: Performed By: #### T NS, PRBC #### [facility] [address] [place] [address] Dr. Benito To BAND # 0.2 103/ul Normal 0.0-0.3 [facility] Comment on above: Performed By: #### T NS, PRBC #### [facility] [address] [place] [address] Dr. Benito To BAND % 2 % Normal 0-5 [facility] Comment on above: Performed By: #### T NS, PRBC #### [facility] [address] [place] [address] Dr. Benito To BASOM # 0.00 103/ul Normal 0.00-0.10 [facility] Comment on above: Performed By: #### T NS, PRBC #### [facility] [address] [place] [address] Dr. Benito To BASOM % 0.0 % Critically low 0.2-2.0 [facility] Comment on above: Performed By: #### T NS, PRBC #### [facility] [address] [place] [address] Dr. Benito To BLAST # Normal [facility] Comment on above: Performed By: #### T NS, PRBC #### [facility] [address] [place] [address] Dr. Benito To BLAST % Normal [facility] Comment on above: Performed By: #### T NS, PRBC #### [facility] [address] [place] [address] Dr. Benito To CORRECTED WBC Normal 4.0-11.0 [facility] Comment on above: Performed By: #### T NS, PRBC #### [facility] [address] [place] [address] Dr. Benito To EOS # 0.00 103/ul Normal 0.00-0.70 [facility] Comment on above: Performed By: #### T NS, PRBC #### [facility] [address] [place] [address] Dr. Benito To EOS% 0.0 % Critically low 0.9-7.0 [facility] Comment on above: Performed By: #### T NS, PRBC #### [facility] [address] [place] [address] Dr. Benito To HCT 20.3 % Critically low 42.0-54.0 [facility] Comment on above: Performed By: #### T NS, PRBC #### [facility] [address] [address] [address] Benito To HGB 6.4 g/dl Critically low 14.0-18.0 [facility] Comment on above: Performed By: #### T NS, PRBC #### [facility] [address] [address] [address] Benito To LYMPHM # 1.13 103/ul Critically low 1.20-3.80 [facility] Comment on above: Performed By: #### T NS, PRBC #### [facility] [address] [place] [address] Dr. Benito To LYMPHM% 10.0 % Critically low 20.5-60.0 [facility] Comment on above: Performed By: #### T NS, PRBC #### [facility] [address] [place] [address] Dr. Benito To MCH 31.5 pg Normal 25.9-34.0 [facility] Comment on above: Performed By: #### T NS, PRBC #### [facility] [address] [place] [address] Dr. Benito To MCHC 31.5 g/dl Normal 29.9-35.2 [facility] Comment on above: Performed By: #### T NS, PRBC #### [facility] [address] [place] [address] Dr. Benito To MCV 100.0 fL Critically high 80.0-94.0 [facility] Comment on above: Performed By: #### T NS, PRBC #### [facility] [address] [place] [address] Dr. Benito To METAMYELOCYTE # 0.5 103/ul Normal [facility] Comment on above: Performed By: #### T NS, PRBC #### [facility] [address] [place] [address] Dr. Benito To METAMYELOCYTE % 4 % Normal [facility] Comment on above: Performed By: #### T NS, PRBC #### [facility] [address] [place] [address] Dr. Benito To MICROCYTOSIS 1+ Normal [facility] Comment on above: Performed By: #### T NS, PRBC #### [facility] [address] [place] [address] Dr. Benito To MONOM# 0.90 103/ul Critically high 0.30-0.80 [facility] Comment on above: Performed By: #### T NS, PRBC #### [facility] [address] [place] [address] Dr. Benito To MONOM% 8.0 % Normal 1.7-12.0 [facility] Comment on above: Performed By: #### T NS, PRBC #### [facility] [address] [place] [address] Dr. Benito To MYELOCYTE # Normal [facility] Comment on above: Performed By: #### T NS, PRBC #### [facility] [address] [place] [address] Dr. Benito To MYELOCYTE % Normal [facility] Comment on above: Performed By: #### T NS, PRBC #### [facility] [address] [place] [address] Dr. Benito To NRBC Normal [facility] Comment on above: Performed By: #### T NS, PRBC #### [facility] [address] [place] [address] Dr. Benito To PLT 78 103/ul Critically low 150-450 [facility] Comment on above: Performed By: #### T NS, PRBC #### [facility] [address] [place] [address] Dr. Benito To RBC 2.03 106/ul Critically low 4.70-6.10 [facility] Comment on above: Performed By: #### T NS, PRBC #### [facility] [address] [place] [address] Dr. Benito To RDW 25.1 % Critically high 11.0-15.0 [facility] Comment on above: Performed By: #### T NS, PRBC #### [facility] [address] [place], [place] [address] Dr. Benito To SEG # 8.59 103/ul Critically high 1.40-6.50 [facility] Comment on above: Performed By: #### T NS, PRBC #### [facility] [address] [place], [place] [address] Dr. Benito To SEG % 76.0 % Critically high 43.0-75.0 [facility] Comment on above: Performed By: #### T NS, PRBC #### [facility] [address] [place], [place] [address] Dr. Benito To WBC 11.3 103/ul Critically high 4.0-11.0 [facility] Comment on above: Performed By: #### T NS, PRBC #### [facility] [address] [address] [address] Benito To ECHOCARDIO M/2D COMPLETEon 0 11-14-2022 ECHOCARDIO M/2D COMPLETE Patient: SANDIP BROUSSARD Exam Date: 11/14/2022 : 1940 Gender:M Ordering : DR FLASH PEARL . Admission #: [id number] Family : Order #: [id number] CLICK HERE TO VIEW EXAM ECHOCARDIOGRAM REPORT [...] Sheng Gomez M.D. on 11/14/2022 at 20:08 Normal [facility] PRBC LEUKOREDUCEDon 11-15-19 23 ABO and Rh group Nom (Bld) Cross Match Result Compatible Unit Blood Type A Pos Unit Number [id number] Status Information Issued Product ID Red Blood Cells Product Code [id number] Issue Date/Time [id number] Normal [facility] Comment on above: Performed By: #### P RBC, TNS #### [facility] [address] [place] [address] Dr. Benito To PROF 14(COMP METB)on 023 Albumin [Mass/Vol] 2.8 g/dL Critically low 3.4-5.0 [facility] Comment on above: Performed By: #### H H #### [facility] [address] [place] [address] Dr. Benito To Albumin/Globulin [Mass ratio] 0.6 {ratio} Normal [facility] Comment on above: Performed By: #### H H #### [facility] [address] [place] [address] Dr. Benito To ALP [Catalytic activity/Vol] 146 U/L Critically high 46-116 [facility] Comment on above: Performed By: #### H H #### [facility] [address] [place] [address] Dr. Benito To ALT [Catalytic activity/Vol] 55 U/L Normal 16-63 [facility] Comment on above: Performed By: #### H H #### [facility] [address] [place] [address] Dr. Benito To Anion gap [Moles/Vol] 12.9 mmol/L Normal [facility] Comment on above: Performed By: #### H H #### [facility] [address] [place] [address] Dr. Benito To AST [Catalytic activity/Vol] 30 U/L Normal 15-37 [facility] Comment on above: Performed By: #### H H #### [facility] [address] [address] [address] Benito To Bilirubin [Mass/Vol] 1.3 mg/dL Critically high 0.2-1.0 [facility] Comment on above: Performed By: #### H H #### [facility] [address] [address] [address] Benito To Calcium [Mass/Vol] 8.6 mg/dL Normal 8.5-10.1 [facility] Comment on above: Performed By: #### H H #### [facility] [address] [place] [address] Dr. Benito To Chloride [Moles/Vol] 103 mmol/L Normal 98-107 [facility] Comment on above: Performed By: #### H H #### [facility] [address] [address] [address] Benito To CO2 [Moles/Vol] 32.2 mmol/L Critically high 21.0-32.0 [facility] Comment on above: Performed By: #### H H #### [facility] [address] [place] [address] Dr. Benito To Creatinine [Mass/Vol] 1.87 mg/dL Critically high 0.70-1.30 [facility] Comment on above: Performed By: #### H H #### [facility] [address] [place] [address] Dr. Benito To EGFR-AF GAMBIAN 42 mL/min/1.73m2 Critically low >=60 [facility] Comment on above: Performed By: #### H H #### [facility] [address] [address] [address] Benito To EGFR-NON AF GAMBIAN 35 mL/min/1.73m2 Critically low >=60 [facility] Comment on above: Performed By: #### H H #### [facility] [address] [place] [address] Dr. Benito To Globulin (S) [Mass/Vol] 4.6 g/dL Normal [facility] Comment on above: Performed By: #### H H #### [facility] [address] [place] [address] Dr. Benito To Glucose [Mass/Vol] 113 mg/dL Critically high 74-106 [facility] Comment on above: Performed By: #### H H #### [facility] [address] [place] [address] Dr. Benito To Potassium [Moles/Vol] 4.1 mmol/L Normal 3.5-5.1 [facility] Comment on above: Performed By: #### H H #### [facility] [address] [place] [address] Dr. Benito To Protein [Mass/Vol] 7.4 g/dL Normal 6.4-8.2 [facility] Comment on above: Performed By: #### H H #### [facility] [address] [place] [address] Dr. Benito To Sodium [Moles/Vol] 144 mmol/L Normal 136-145 [facility] Comment on above: Performed By: #### H H #### [facility] [address] [place] [address] Dr. Benito To Urea nitrogen [Mass/Vol] 39.0 mg/dL Critically high 7.0-18.0 [facility] Comment on above: Performed By: #### H H #### [facility] [address] [place] [address] Dr. Benito To Urea nitrogen/Creatinine [Mass ratio] 20.9 mg/mg Normal [facility] Comment on above: Performed By: #### H H #### [facility] [address] [place] [address] Dr. Benito To BNPon 11-13-2022 Natriuretic peptide B (Bld) [Mass/Vol] 5483.0 pg/mL Critically high <=1,800.0 [facility] Comment on above: Performed By: #### H GBHCT #### [facility] [address] [place] [address] Dr. Benito To CBC W MANUAL DIFFon 11-14-19 23 ANISOCYTOSIS SLIGHT Normal [facility] Comment on above: Performed By: #### T NS, PRBC #### [facility] [address] [place] [address] Dr. Benito To ATYPICAL LYMPH # Normal [facility] Comment on above: Performed By: #### T NS, PRBC #### [facility] [address] [place] [address] Dr. Benito To ATYPICAL LYMPH % Normal [facility] Comment on above: Performed By: #### T NS, PRBC #### [facility] [address] [place] [address] Dr. Benito To BAND # 0.2 103/ul Normal 0.0-0.3 [facility] Comment on above: Performed By: #### T NS, PRBC #### [facility] [address] [place] [address] Dr. Benito To BAND % 2 % Normal 0-5 [facility] Comment on above: Performed By: #### T NS, PRBC #### [facility] [address] [place] [address] Dr. Benito To BASOM # 0.00 103/ul Normal 0.00-0.10 [facility] Comment on above: Performed By: #### T NS, PRBC #### [facility] [address] [place] [address] Dr. Benito To BASOM % 0.0 % Critically low 0.2-2.0 [facility] Comment on above: Performed By: #### T NS, PRBC #### [facility] [address] [place] [address] Dr. Benito To BLAST # Normal [facility] Comment on above: Performed By: #### T NS, PRBC #### [facility] [address] [place] [address] Dr. Benito To BLAST % Normal [facility] Comment on above: Performed By: #### T NS, PRBC #### [facility] [address] [address] [address] Benito To CORRECTED WBC Normal 4.0-11.0 [facility] Comment on above: Performed By: #### T NS, PRBC #### [facility] [address] [place] [address] Dr. Benito To EOS # 0.00 103/ul Normal 0.00-0.70 [facility] Comment on above: Performed By: #### T NS, PRBC #### [facility] [address] [place] [address] Dr. Benito To EOS% 0.0 % Critically low 0.9-7.0 [facility] Comment on above: Performed By: #### T NS, PRBC #### [facility] [address] [place] [address] Dr. Benito To HCT 23.1 % Critically low 42.0-54.0 [facility] Comment on above: Performed By: #### T NS, PRBC #### [facility] [address] [place] [address] Dr. Benito To HGB 7.2 g/dl Critically low 14.0-18.0 [facility] Comment on above: Performed By: #### T NS, PRBC #### [facility] [address] [place] [address] Dr. Benito To LYMPHM # 1.38 103/ul Normal 1.20-3.80 [facility] Comment on above: Performed By: #### T NS, PRBC #### [facility] [address] [place] [address] Dr. Benito To LYMPHM% 13.0 % Critically low 20.5-60.0 [facility] Comment on above: Performed By: #### T NS, PRBC #### [facility] [address] [place] [address] Dr. Benito To MACROCYTOSIS SLIGHT Normal [facility] Comment on above: Performed By: #### T NS, PRBC #### [facility] [address] [place] [address] Dr. Benito To MCH 32.0 pg Normal 25.9-34.0 [facility] Comment on above: Performed By: #### T NS, PRBC #### [facility] [address] [place] [address] Dr. Benito To MCHC 31.2 g/dl Normal 29.9-35.2 [facility] Comment on above: Performed By: #### T NS, PRBC #### [facility] [address] [place] [address] Dr. Benito To MCV 102.7 fL Critically high 80.0-94.0 [facility] Comment on above: Performed By: #### T NS, PRBC #### [facility] [address] [place] [address] Dr. Benito To METAMYELOCYTE # Normal [facility] Comment on above: Performed By: #### T NS, PRBC #### [facility] [address] [place] [address] Dr. Benito To METAMYELOCYTE % Normal [facility] Comment on above: Performed By: #### T NS, PRBC #### [facility] [address] [place] [address] Dr. Benito To MONOM# 0.74 103/ul Normal 0.30-0.80 [facility] Comment on above: Performed By: #### T NS, PRBC #### [facility] [address] [place] [address] Dr. Benito To MONOM% 7.0 % Normal 1.7-12.0 [facility] Comment on above: Performed By: #### T NS, PRBC #### [facility] [address] [place] [address] Dr. Benito To MPV 0.0 fL Critically low 9.5-13.5 [facility] Comment on above: Performed By: #### T NS, PRBC #### [facility] [address] [place] [address] Dr. Benito To MYELOCYTE # 0.1 103/ul Normal [facility] Comment on above: Performed By: #### T NS, PRBC #### [facility] [address] [address] [address] Benito To MYELOCYTE % 1 % Normal [facility] Comment on above: Performed By: #### T NS, PRBC #### [facility] [address] [address] [address] Benito To NRBC Normal [facility] Comment on above: Performed By: #### T NS, PRBC #### [facility] [address] [address] [address] Benito To PLT 67 103/ul Critically low 150-450 [facility] Comment on above: Performed By: #### T NS, PRBC #### [facility] [address] [place] [address] Dr. Benito To RBC 2.25 106/ul Critically low 4.70-6.10 [facility] Comment on above: Performed By: #### T NS, PRBC #### [facility] [address] [place] [address] Dr. Benito To RDW 25.2 % Critically high 11.0-15.0 [facility] Comment on above: Performed By: #### T NS, PRBC #### [facility] [address] [place] [address] Dr. Benito To SEG # 8.16 103/ul Critically high 1.40-6.50 [facility] Comment on above: Performed By: #### T NS, PRBC #### [facility] [address] [place] [address] Dr. Benito To SEG % 77.0 % Critically high 43.0-75.0 [facility] Comment on above: Performed By: #### T NS, PRBC #### [facility] [address] [place] [address] Dr. Benito To WBC 10.6 103/ul Normal 4.0-11.0 [facility] Comment on above: Performed By: #### T NS, PRBC #### [facility] [address] [place] [address] Dr. Benito To CNPNon 11-13-2022 CNPN Normal [facility] Covid-19 PCR (CVDTBH)on 10-26 SARS-CoV-2 (COVID-19) RNA JOSSIE+probe Ql (Unsp spec) Not detected Normal NOT DETECTED [facility] Comment on above: Result Comment: When [...] for this test is supported by the [employer] of Health and Human Service's declaration that [...] longer be used). Performed By: #### T NS, PRBC #### [facility] [address] [place] [address] Dr. Benito To FERRITINon 11-13-2022 Ferritin [Mass/Vol] 6375.0 ng/mL Critically high 26.0-388. 0 [facility] Comment on above: Performed By: #### T NS, PRBC #### [facility] [address] [place] [address] Dr. Benito To IRON AND TIBCon 11-13-2022 Iron [Mass/Vol] 148.0 ug/dL Normal 65.0-175.0 [facility] Comment on above: Performed By: #### T NS, PRBC #### [facility] [address] [place] [address] Dr. Benito To TIBC DIRECT 145.0 ug/dL Critically low 250.0-450.0 [facility] Comment on above: Performed By: #### T NS, PRBC #### [facility] [address] [place] [address] Dr. Benito To PROF 14(COMP METB)on 023 Albumin [Mass/Vol] 2.7 g/dL Critically low 3.4-5.0 [facility] Comment on above: Performed By: #### H GBHCT #### [facility] [address] [place] [address] Dr. Benito To Albumin/Globulin [Mass ratio] 0.6 {ratio} Normal [facility] Comment on above: Performed By: #### H GBHCT #### [facility] [address] [address] [address] Benito To ALP [Catalytic activity/Vol] 140 U/L Critically high 46-116 [facility] Comment on above: Performed By: #### H GBHCT #### [facility] [address] [place] [address] Dr. Benito To ALT [Catalytic activity/Vol] 53 U/L Normal 16-63 [facility] Comment on above: Performed By: #### H GBHCT #### [facility] [address] [address] [address] Benito To Anion gap [Moles/Vol] 14.4 mmol/L Normal [facility] Comment on above: Performed By: #### H GBHCT #### [facility] [address] [place] [address] Dr. Benito To AST [Catalytic activity/Vol] 31 U/L Normal 15-37 [facility] Comment on above: Performed By: #### H GBHCT #### [facility] [address] [place] [address] Dr. Benito To Bilirubin [Mass/Vol] 1.3 mg/dL Critically high 0.2-1.0 [facility] Comment on above: Performed By: #### H GBHCT #### [facility] [address] [address] [address] Benito To Calcium [Mass/Vol] 8.8 mg/dL Normal 8.5-10.1 [facility] Comment on above: Performed By: #### H GBHCT #### [facility] [address] [place] [address] Dr. Benito To Chloride [Moles/Vol] 103 mmol/L Normal 98-107 [facility] Comment on above: Performed By: #### H GBHCT #### [facility] [address] [address] [address] Benito To CO2 [Moles/Vol] 29.7 mmol/L Normal 21.0-32.0 [facility] Comment on above: Performed By: #### H GBHCT #### [facility] [address] [address] [address] Benito To Creatinine [Mass/Vol] 1.95 mg/dL Critically high 0.70-1.30 [facility] Comment on above: Performed By: #### H GBHCT #### [facility] [address] [place] [address] Dr. Benito To EGFR-AF GAMBIAN 40 mL/min/1.73m2 Critically low >=60 [facility] Comment on above: Performed By: #### H GBHCT #### [facility] [address] [place] [address] Dr. Benito To EGFR-NON AF GAMBIAN 33 mL/min/1.73m2 Critically low >=60 [facility] Comment on above: Performed By: #### H GBHCT #### [facility] [address] [place] [address] Dr. Benito To Globulin (S) [Mass/Vol] 4.7 g/dL Normal [facility] Comment on above: Performed By: #### H GBHCT #### [facility] [address] [place] [address] Dr. Benito To Glucose [Mass/Vol] 198 mg/dL Critically high 74-106 [facility] Comment on above: Performed By: #### H GBHCT #### [facility] [address] [address] [address] Benito To Potassium [Moles/Vol] 4.1 mmol/L Normal 3.5-5.1 [facility] Comment on above: Performed By: #### H GBHCT #### [facility] [address] [address] [address] Benito To Protein [Mass/Vol] 7.4 g/dL Normal 6.4-8.2 [facility] Comment on above: Performed By: #### H GBHCT #### [facility] [address] [address] [address] Benito To Sodium [Moles/Vol] 143 mmol/L Normal 136-145 [facility] Comment on above: Performed By: #### H GBHCT #### [facility] [address] [address] [address] Benito To Urea nitrogen [Mass/Vol] 39.0 mg/dL Critically high 7.0-18.0 [facility] Comment on above: Performed By: #### H GBHCT #### [facility] [address] [place] [address] Dr. Benito To Urea nitrogen/Creatinine [Mass ratio] 20.0 mg/mg Normal [facility] Comment on above: Performed By: #### H GBHCT #### [facility] [address] [place] [address] Dr. Benito To TROPONIN, HIGH SENSITIVITYon 11-13-2022 HSTROP 47.8 pg/mL Normal 4.0-76.1 [facility] Comment on above: Result Comment: CUT- OFF POINTS HAVE BEEN ESTABLISHED BASED ON THE FOURTH UNIVERSAL DEFINITIONS OF MYOCARDIAL INFARCTION. THE UPPER REFERENCE LIMIT (URL) OF TROPONIN, DEFINED THE 99TH PERCENTILE OF cTnI DISTRIBUTION IN A REFERENCE POPULATION, HAS BEEN CONFIRMED THE DECISION THRESHOLD FOR TX DIAGNOSIS. Performed By: #### H GBHCT #### [facility] [address] [place] [address] Dr. Benito To TYPE AND SCREENon 11-13-2022 TYPE AND SCREEN Negative Normal [facility] Comment on above: Performed By: #### T NS, PRBC #### [facility] [address] [place] [address] Dr. Benito To XR CHEST 1 Von [...] by: OUMOU MONTIEL Date: 2022-11-13 13:36 Normal [facility] PRBC LEUKOREDUCEDon 11-11-19 ABO and Rh group Nom (Bld) Cross Match Result Compatible Unit Blood Type A Pos Unit Number [id number] Status Information Transfused Product ID Red Blood Cells Product Code [id number] Cross Match Result Compatible Unit Blood Type A Pos Unit Number [id number] Status Information Transfused Product ID Red Blood Cells Product Code [id number] Normal [facility] Comment on above: Performed By: #### H H #### [facility] [address] [address] [address] Benito To CBC W Auto Differential pane l (Bld)on 11-06-2022 Anisocytosis Ql (Bld) Present Normal [facility] Comment on above: Order Comment: Speci men Type: BLOOD SPECIMENOrdering Facility: [facility] Address: [address] [place] [address] Performed By: #### 5 7021-8 ####[facility] LABCLIA [id number] [address] [address] [facility] LABCLIA [id number] [place] [address] Basophils (Bld) [#/Vol] 0.00 10*3/uL Normal <0.11 [facility] Comment on above: Order Comment: Speci men Type: BLOOD SPECIMENOrdering Facility: [facility] Address: [address] [place] [address] Performed By: #### 5 7021-8 ####[facility] LABCLIA [id number] [address] LABCLIA [id number] [place] [address] Basophils/100 WBC (Bld) 0.0 % Normal [facility] Comment on above: Order Comment: Speci men Type: BLOOD SPECIMENOrdering Facility: [facility] Address: [address] [place] [address] Performed By: #### 5 7021-8 ####[facility] LABCLIA [id number] [address] LABCLIA [id number] [place] [address] Differential cell count method Nom (Bld) Manual Normal [facility] Comment on above: Order Comment: Speci men Type: BLOOD SPECIMENOrdering Facility: [facility] Address: [address] [place] [address] Performed By: #### 5 7021-8 ####[facility] LABCLIA [id number] [address] LABCLIA [id number] [place] [address] Eosinophils (Bld) [#/Vol] 0.03 10*3/uL Normal <0.46 [facility] Comment on above: Order Comment: Speci men Type: BLOOD SPECIMENOrdering Facility: [facility] Address: [address] [place], [place] [id number] Performed By: #### 5 7021-8 ####[facility] LABCLIA [id number] [address] LABCLIA [id number] [place] [address] Eosinophils/100 WBC (Bld) 1.0 % Normal [facility] Comment on above: Order Comment: Speci men Type: BLOOD SPECIMENOrdering Facility: [facility] Address: [address] [place] [address] Performed By: #### 5 7021-8 ####[facility] LABCLIA [id number] [address] LABCLIA [id number] [place] [address] Erythrocyte distribution width (RBC) [Ratio] 24.8 % High 11.5-15.0 [facility] Comment on above: Order Comment: Speci men Type: BLOOD SPECIMENOrdering Facility: [facility] Address: [address] [place] [address] Performed By: #### 5 7021-8 ####[facility] LABCLIA [id number] [address] LABCLIA [id number] [place] [address] Hematocrit (Bld) [Volume fraction] 21.1 % Low 39.0-51.0 [facility] Comment on above: Order Comment: Speci men Type: BLOOD SPECIMENOrdering Facility: [facility] Address: [address] [place] [address] Performed By: #### 5 7021-8 ####[facility] LABCLIA [id number] [address] LABCLIA [id number] [place] [address] Hemoglobin (Bld) [Mass/Vol] 6.5 g/dL Low 13.0-17.0 [facility] Comment on above: Order Comment: Speci men Type: BLOOD SPECIMENOrdering Facility: [facility] Address: [address] [place] [address] Performed By: #### 5 7021-8 ####[facility] LABCLIA [id number] [address] LABCLIA [id number] [place] [address] Lymphocytes (Bld) [#/Vol] 0.97 10*3/uL Low 1.00-4.00 [facility] Comment on above: Order Comment: Speci men Type: BLOOD SPECIMENOrdering Facility: [facility] Address: [address] [place] [address] Performed By: #### 5 7021-8 ####[facility] LABCLIA [id number] [address] LABCLIA [id number] [place] [address] Lymphocytes/100 WBC (Bld) 28.0 % Normal [facility] Comment on above: Order Comment: Speci men Type: BLOOD SPECIMENOrdering Facility: [facility] Address: [address] [place] [address] Performed By: #### 5 7021-8 ####[facility] LABCLIA [id number] [address] LABCLIA [id number] [place] [address] MCH (RBC) [Entitic mass] 32.0 pg Normal 26.0-34.0 [facility] Comment on above: Order Comment: Speci men Type: BLOOD SPECIMENOrdering Facility: [facility] Address: [address] [place], [place] [id number] Performed By: #### 5 7021-8 ####[facility] LABCLIA [id number] [address] LABCLIA [id number] [place] [address] MCHC (RBC) [Mass/Vol] 30.8 g/dL Normal 30.5-36.0 [facility] Comment on above: Order Comment: Speci men Type: BLOOD SPECIMENOrdering Facility: [facility] Address: [address] [place] [address] Performed By: #### 5 7021-8 ####[facility] LABCLIA [id number] [address] LABCLIA [id number] [place] [address] MCV (RBC) [Entitic vol] 103.9 fL High 80.0-100.0 [facility] Comment on above: Order Comment: Speci men Type: BLOOD SPECIMENOrdering Facility: [facility] Address: [address] [place] [address] Performed By: #### 5 7021-8 ####[facility] LABCLIA [id number] [address] LABCLIA [id number] [place] [address] Metamyelocytes/100 WBC (Bld) 5.0 % Normal [facility] Comment on above: Order Comment: Speci men Type: BLOOD SPECIMENOrdering Facility: [facility] Address: [address] [place] [address] Performed By: #### 5 7021-8 ####[facility] LABCLIA [id number] [address] LABCLIA [id number] [place] [address] Monocytes (Bld) [#/Vol] 0.48 10*3/uL Normal <0.87 [facility] Comment on above: Order Comment: Speci men Type: BLOOD SPECIMENOrdering Facility: [facility] Address: [address] [place] [address] Performed By: #### 5 7021-8 ####[facility] LABCLIA [id number] LABCLIA [id number] [place] [address] Monocytes/100 WBC (Bld) 14.0 % Normal [facility] Comment on above: Order Comment: Speci men Type: BLOOD SPECIMENOrdering Facility: [facility] Address: [address] [place] [address] Performed By: #### 5 7021-8 ####[facility] LABCLIA [id number] [address] LABCLIA [id number] [place] [address] MYELO% 9.0 % Normal [facility] Comment on above: Order Comment: Speci men Type: BLOOD SPECIMENOrdering Facility: [facility] Address: [address] [place] [address] Performed By: #### 5 7021-8 ####[facility] LABCLIA [id number] [address] LABCLIA [id number] [place] [address] Neutrophils (Bld) [#/Vol] 1.48 10*3/uL Normal 1.45-7.50 [facility] Comment on above: Order Comment: Speci men Type: BLOOD SPECIMENOrdering Facility: [facility] Address: [address] [place], [place] [address] Performed By: #### 5 7021-8 ####[facility] LABCLIA [id number] [address] LABCLIA [id number] [place] [address] Neutrophils/100 WBC (Bld) 43.0 % Normal [facility] Comment on above: Order Comment: Speci men Type: BLOOD SPECIMENOrdering Facility: [facility] Address: [address] [place] [address] Performed By: #### 5 7021-8 ####[facility] LABCLIA [id number] [address] LABCLIA [id number] [place] [address] Nucleated RBC (Bld) [#/Vol] 10*3/uL Normal <0.01 [facility] Comment on above: Order Comment: Speci men Type: BLOOD SPECIMENOrdering Facility: [facility] Address: [address] [place] [address] Performed By: #### 5 7021-8 ####[facility] LABCLIA [id number] [address] LABCLIA [id number] [place] [address] Nucleated RBC/100 WBC (Bld) [Ratio] 0.0 /100 WBC Normal [facility] Comment on above: Order Comment: Speci men Type: BLOOD SPECIMENOrdering Facility: [facility] Address: [address] [place] [address] Performed By: #### 5 7021-8 ####[facility] LABCLIA [id number] [place] [address] [facility] LABCLIA [id number] [place] [address] Ovalocytes LM Ql (Bld) Few Normal [facility] Comment on above: Order Comment: Speci men Type: BLOOD SPECIMENOrdering Facility: [facility] Address: [address] [place] [address] Performed By: #### 5 7021-8 ####[facility] LABCLIA [id number] [place] [address] [facility] LABCLIA [id number] [place] [address] Platelet mean volume (Bld) [Entitic vol] Normal [facility] Comment on above: Order Comment: Speci men Type: BLOOD SPECIMENOrdering Facility: [facility] Address: [address] [place] [address] Result Comment: Unab le to Report. Performed By: #### 5 7021-8 ####[facility] LABCLIA [id number] [address] LABCLIA [id number] [place] [address] Platelets (Bld) [#/Vol] 47 10*3/uL Low 150-400 [facility] Comment on above: Order Comment: Speci men Type: BLOOD SPECIMENOrdering Facility: [facility] Address: [address] [place] [address] Result Comment: Resu lts checked and verified.No clot detected.Platelet count confirmed by manual review of peripheral blood smear. Performed By: #### 5 7021-8 ####[facility] LABCLIA [id number] [address] LABCLIA [id number] [place] [address] Platelets Estimate (Bld) [#/Vol] Decreased Normal [facility] Comment on above: Order Comment: Speci men Type: BLOOD SPECIMENOrdering Facility: [facility] Address: [address] [place] [address] Performed By: #### 5 7021-8 ####[facility] LABCLIA [id number] [address] LABCLIA [id number] [place] [address] Polychromasia LM Ql (Bld) Slight Normal [facility] Comment on above: Order Comment: Speci men Type: BLOOD SPECIMENOrdering Facility: [facility] Address: [address] [place] [address] Performed By: #### 5 7021-8 ####[facility] LABCLIA [id number] [address] LABCLIA [id number] [place] [address] RBC (Bld) [#/Vol] 2.03 10*6/uL Low 4.20-6.00 [facility] Comment on above: Order Comment: Speci men Type: BLOOD SPECIMENOrdering Facility: [facility] Address: [address] [place] [address] Performed By: #### 5 7021-8 ####[facility] LABCLIA [id number] [address] LABCLIA [id number] [place] [address] RED CELL MORPH Reviewed: see result s of individual morphologies Normal [facility] Comment on above: Order Comment: Speci men Type: BLOOD SPECIMENOrdering Facility: [facility] Address: [address] [place] [address] Performed By: #### 5 7021-8 ####[facility] LABCLIA [id number] [address] LABCLIA [id number] [place] [address] WBC (Bld) [#/Vol] 3.45 10*3/uL Low 3.70-11.00 [facility] Comment on above: Order Comment: Speci men Type: BLOOD SPECIMENOrdering Facility: [facility] Address: [address] Result Comment: Resu lts checked and verified.No clot detected.Reviewed Performed By: #### 5 7021-8 ####[facility] LABCLIA [id number] [place] AVEN[address]ED[id number] LABCLIA [id number] [place] [address] WBC Left Shift Ql (Bld) Present Normal [facility] Comment on above: Order Comment: Speci men Type: BLOOD SPECIMENOrdering Facility: [facility] Address: [address] [place] [address] Performed By: #### 5 7021-8 ####[facility] LABCLIA [id number] [address] LABCLIA [id number] [place] [address] CNPNon 11-06-2022 CNPN Normal [facility] Comprehensive metabolic 2000 panelon 11-06-2022 Albumin [Mass/Vol] 3.7 g/dL Low 3.9-4.9 [facility] Comment on above: Order Comment: Speci men Type: BLOOD SPECIMENOrdering Facility: [facility] Address: [address] [place] [address] Performed By: #### 2 4323-8 ####[facility] LABCLIA [id number] [place] [address] ALP [Catalytic activity/Vol] 171 U/L High 38-113 [facility] Comment on above: Order Comment: Speci men Type: BLOOD SPECIMENOrdering Facility: [facility] Address: [address] [place] [address] Performed By: #### 2 4323-8 ####[facility] LABCLIA [id number] [place] [address] ALT [Catalytic activity/Vol] 56 U/L High 10-54 [facility] Comment on above: Order Comment: Speci men Type: BLOOD SPECIMENOrdering Facility: [facility] Address: [address] [place] [address] Performed By: #### 2 4323-8 ####[facility] LABCLIA [id number] [place] [address] Anion gap [Moles/Vol] 6 mmol/L Low 9-18 [facility] Comment on above: Order Comment: Speci men Type: BLOOD SPECIMENOrdering Facility: [facility] Address: [address] [place] [address] Performed By: #### 2 4323-8 ####[facility] LABCLIA [id number] [place] [address] AST [Catalytic activity/Vol] 29 U/L Normal 14-40 [facility] Comment on above: Order Comment: Speci men Type: BLOOD SPECIMENOrdering Facility: [facility] Address: [address] [place] [address] Performed By: #### 2 4323-8 ####[facility] LABCLIA [id number] [place] [address] Bilirubin [Mass/Vol] 0.8 mg/dL Normal 0.2-1.3 [facility] Comment on above: Order Comment: Speci men Type: BLOOD SPECIMENOrdering Facility: [facility] Address: [address] [place] [address] Performed By: #### 2 4323-8 ####[facility] LABCLIA [id number] [place] [address] Calcium [Mass/Vol] 9.0 mg/dL Normal 8.5-10.2 [facility] Comment on above: Order Comment: Speci men Type: BLOOD SPECIMENOrdering Facility: [facility] Address: [address] [place] [address] Performed By: #### 2 4323-8 ####[facility] LABCLIA [id number] [place] [address] Chloride [Moles/Vol] 104 mmol/L Normal 97-105 [facility] Comment on above: Order Comment: Speci men Type: BLOOD SPECIMENOrdering Facility: [facility] Address: [address] [place] [address] Performed By: #### 2 4323-8 ####[facility] LABCLIA [id number] [place] [address] CO2 [Moles/Vol] 30 mmol/L Normal 22-30 [facility] Comment on above: Order Comment: Speci men Type: BLOOD SPECIMENOrdering Facility: [facility] Address: [address] [place] [address] Performed By: #### 2 4323-8 ####[facility] LABCLIA [id number] [place] [address] Creatinine [Mass/Vol] 1.41 mg/dL High 0.73-1.22 [facility] Comment on above: Order Comment: Speci men Type: BLOOD SPECIMENOrdering Facility: [facility] Address: [address] [place] [address] Performed By: #### 2 4323-8 ####[facility] LABCLIA [id number] [place] [address] ESTIMATED GLOMERULAR FILTRATION RATE 49 mL/min/1.73m??? Low >=60 [facility] Comment on above: Order Comment: Speci men Type: BLOOD SPECIMENOrdering Facility: [facility] Address: [address] [place] [address] Result Comment: Faye mated Glomerular Filtration Rate [...] actual GFR. Performed By: #### 2 4323-8 ####[facility] LABCLIA [id number] [place] [address] Glucose [Mass/Vol] 183 mg/dL High 74-99 [facility] Comment on above: Order Comment: Speci men Type: BLOOD SPECIMENOrdering Facility: [facility] Address: [address] [place] [address] Result Comment: The [place] [employer] (ADA) provides guidance for cutoff [...] Standards of Medical Care in Diabetes 2016, [place] [employer]. Diabetes Care. 2016.39(Suppl 1). Performed By: #### 2 4323-8 ####[facility] LABCLIA [id number] [place] [address] Potassium [Moles/Vol] 4.0 mmol/L Normal 3.7-5.1 [facility] Comment on above: Order Comment: Speci men Type: BLOOD SPECIMENOrdering Facility: [facility] Address: [address] [place] [address] Performed By: #### 2 4323-8 ####[facility] LABCLIA [id number] [place] [address] Protein [Mass/Vol] 7.0 g/dL Normal 6.3-8.0 [facility] Comment on above: Order Comment: Speci men Type: BLOOD SPECIMENOrdering Facility: [facility] Address: [address] [place] [address] Performed By: #### 2 4323-8 ####[facility] LABCLIA [id number] [place] [address] Sodium [Moles/Vol] 140 mmol/L Normal 136-144 [facility] Comment on above: Order Comment: Speci men Type: BLOOD SPECIMENOrdering Facility: [facility] Address: [address] [place] [address] Performed By: #### 2 4323-8 ####[facility] LABCLIA [id number] [place] [address] Urea nitrogen [Mass/Vol] 27 mg/dL High 9-24 [facility] Comment on above: Order Comment: Speci men Type: BLOOD SPECIMENOrdering Facility: [facility] Address: [address] [place], [place] [address] Performed By: #### 2 4323-8 ####[facility] LABCLIA [id number] [place] [address] HEMOGLOBIN AND HEMATOCRITon 11-06-2022 Hematocrit (Bld) [Volume fraction] 20.3 % Critically low 42.0-54.0 [facility] Comment on above: Performed By: #### T NS, PRBC #### [facility] [address] [place] [address] Dr. Benito To Hemoglobin (Bld) [Mass/Vol] 6.4 g/dL Critically low 14.0-18.0 [facility] Comment on above: Performed By: #### T NS, PRBC #### [facility] [address] [place] [address] [address] Benito To TYPE AND SCREENon 11-06-2022 TYPE AND SCREEN Negative Normal [facility] Comment on above: Performed By: #### H H #### [facility] [address] [place] [address] Dr. Benito To PRBC LEUKOREDUCEDon 11-01-19 23 ABO and Rh group Nom (Bld) Cross Match Result Compatible Unit Blood Type A Pos Unit Number [id number] Status Information Transfused Product ID Red Blood Cells Product Code [id number] Cross Match Result Compatible Unit Blood Type A Pos Unit Number [id number] Status Information Transfused Product ID Red Blood Cells Product Code [id number] Normal [facility] Comment on above: Performed By: #### T NS, PRBC #### [facility] [address] [place] [address] Dr. Benito To ABO and Rh group Nom (Bld) Cross Match Result Compatible Unit Blood Type A Pos Unit Number [id number] Status Information Transfused Product ID Red Blood Cells Product Code [id number] Cross Match Result Compatible Unit Blood Type A Pos Unit Number [id number] Status Information Transfused Product ID Red Blood Cells Product Code [id number] Normal [facility] Comment on above: Performed By: #### T NS, PRBC #### [facility] [address] [place], [place] [address] Dr. Benito To CBC W Auto Differential pane l (Bld)on 10-30-2022 Anisocytosis Ql (Bld) Present Normal [facility] Comment on above: Order Comment: Speci men Type: BLOOD SPECIMENOrdering Facility: [facility] Address: [address] [place] [address] Performed By: #### 5 7021-8 ####[facility] LABCLIA [id number] [address] LABCLIA [id number] [place] [address] Basophils (Bld) [#/Vol] 0.00 10*3/uL Normal <0.11 [facility] Comment on above: Order Comment: Speci men Type: BLOOD SPECIMENOrdering Facility: [facility] Address: [address] [place] [address] Performed By: #### 5 7021-8 ####[facility] LABCLIA [id number] [address] LABCLIA [id number] [place] [address] Basophils/100 WBC (Bld) 0.0 % Normal [facility] Comment on above: Order Comment: Speci men Type: BLOOD SPECIMENOrdering Facility: [facility] Address: [address] [place] [address] Performed By: #### 5 7021-8 ####[facility] LABCLIA [id number] [address] LABCLIA [id number] [place] [address] Differential cell count method Nom (Bld) Manual Normal [facility] Comment on above: Order Comment: Speci men Type: BLOOD SPECIMENOrdering Facility: [facility] Address: [address] [place] [address] Performed By: #### 5 7021-8 ####[facility] LABCLIA [id number] [address] LABCLIA [id number] [place] [address] Eosinophils (Bld) [#/Vol] 0.00 10*3/uL Normal <0.46 [facility] Comment on above: Order Comment: Speci men Type: BLOOD SPECIMENOrdering Facility: [facility] Address: [address] [place] [address] Performed By: #### 5 7021-8 ####[facility] LABCLIA [id number] [address] LABCLIA [id number] [place] [address] Eosinophils/100 WBC (Bld) 0.0 % Normal [facility] Comment on above: Order Comment: Speci men Type: BLOOD SPECIMENOrdering Facility: [facility] Address: [address] [place], [place] [address] Performed By: #### 5 7021-8 ####[facility] LABCLIA [id number] [address] LABCLIA [id number] [place] [address] Erythrocyte distribution width (RBC) [Ratio] 22.6 % High 11.5-15.0 [facility] Comment on above: Order Comment: Speci men Type: BLOOD SPECIMENOrdering Facility: [facility] Address: [address] [place], [place] [address] Performed By: #### 5 7021-8 ####[facility] LABCLIA [id number] [address] LABCLIA [id number] [place] [address] Hematocrit (Bld) [Volume fraction] 26.0 % Low 39.0-51.0 [facility] Comment on above: Order Comment: Speci men Type: BLOOD SPECIMENOrdering Facility: [facility] Address: [address] [place] [address] Performed By: #### 5 7021-8 ####[facility] LABCLIA [id number] [address] LABCLIA [id number] [place] [address] Hemoglobin (Bld) [Mass/Vol] 8.1 g/dL Low 13.0-17.0 [facility] Comment on above: Order Comment: Speci men Type: BLOOD SPECIMENOrdering Facility: [facility] Address: [address] [place] [address] Performed By: #### 5 7021-8 ####[facility] LABCLIA [id number] [address] LABCLIA [id number] [place] [address] Lymphocytes (Bld) [#/Vol] 0.79 10*3/uL Low 1.00-4.00 [facility] Comment on above: Order Comment: Speci men Type: BLOOD SPECIMENOrdering Facility: [facility] Address: [address] [place], [place] [address] Performed By: #### 5 7021-8 ####[facility] LABCLIA [id number] [address] LABCLIA [id number] [place] [address] Lymphocytes/100 WBC (Bld) 31.0 % Normal [facility] Comment on above: Order Comment: Speci men Type: BLOOD SPECIMENOrdering Facility: [facility] Address: [address] [place] [address] Performed By: #### 5 7021-8 ####[facility] LABCLIA [id number] [address] LABCLIA [id number] [place] [address] MCH (RBC) [Entitic mass] 31.5 pg Normal 26.0-34.0 [facility] Comment on above: Order Comment: Speci men Type: BLOOD SPECIMENOrdering Facility: [facility] Address: [address] [place] [address] Performed By: #### 5 7021-8 ####[facility] LABCLIA [id number] [address] LABCLIA [id number] [place] [address] MCHC (RBC) [Mass/Vol] 31.2 g/dL Normal 30.5-36.0 [facility] Comment on above: Order Comment: Speci men Type: BLOOD SPECIMENOrdering Facility: [facility] Address: [address] [place] [address] Performed By: #### 5 7021-8 ####[facility] LABCLIA [id number] [address] LABIA [id number] [place] [address] MCV (RBC) [Entitic vol] 101.2 fL High 80.0-100.0 [facility] Comment on above: Order Comment: Speci men Type: BLOOD SPECIMENOrdering Facility: [facility] Address: [address] [place], [place] [address] Performed By: #### 5 7021-8 ####[facility] LABCLIA [id number] [address] LABCLIA [id number] [place] [address] Metamyelocytes/100 WBC (Bld) 1.0 % Normal [facility] Comment on above: Order Comment: Speci men Type: BLOOD SPECIMENOrdering Facility: [facility] Address: [address] Performed By: #### 5 7021-8 ####[facility] LABCLIA [id number] [address] LABCLIA [id number] [place] [address] Monocytes (Bld) [#/Vol] 0.28 10*3/uL Normal <0.87 [facility] Comment on above: Order Comment: Speci men Type: BLOOD SPECIMENOrdering Facility: [facility] Address: [address] Performed By: #### 5 7021-8 ####[facility] LABCLIA [id number] [address] LABCLIA [id number] [place] [address] Monocytes/100 WBC (Bld) 11.0 % Normal [facility] Comment on above: Order Comment: Speci men Type: BLOOD SPECIMENOrdering Facility: [facility] Address: [address] [place] [address] Performed By: #### 5 7021-8 ####[facility] LABCLIA [id number] [address] LABCLIA [id number] [place] [address] MYELO% 10.0 % Normal [facility] Comment on above: Order Comment: Speci men Type: BLOOD SPECIMENOrdering Facility: [facility] Address: [address] [place] [address] Performed By: #### 5 7021-8 ####[facility] LABCLIA [id number] [address] LABCLIA [id number] [place] [address] Neutrophils (Bld) [#/Vol] 1.22 10*3/uL Low 1.45-7.50 [facility] Comment on above: Order Comment: Speci men Type: BLOOD SPECIMENOrdering Facility: [facility] Address: [address] [place] [address] Performed By: #### 5 7021-8 ####[facility] LABCLIA [id number] [address] LABCLIA [id number] [place] [address] Neutrophils/100 WBC (Bld) 48.0 % Normal [facility] Comment on above: Order Comment: Speci men Type: BLOOD SPECIMENOrdering Facility: [facility] Address: [address] [place] [address] Performed By: #### 5 7021-8 ####[facility] LABCLIA [id number] [address] LABCLIA [id number] [place] [address] Nucleated RBC (Bld) [#/Vol] 0.08 10*3/uL High <0.01 [facility] Comment on above: Order Comment: Speci men Type: BLOOD SPECIMENOrdering Facility: [facility] Address: [address] [place] [address] Performed By: #### 5 7021-8 ####[facility] LABCLIA [id number] [address] [address] [facility] LABCLIA [id number] [place] [address] Nucleated RBC/100 WBC (Bld) [Ratio] 3.0 /100 WBC Normal [facility] Comment on above: Order Comment: Speci men Type: BLOOD SPECIMENOrdering Facility: [facility] Address: [address] [place] [address] Performed By: #### 5 7021-8 ####[facility] LABCLIA [id number] [address] LABCLIA [id number] [place] [address] Ovalocytes LM Ql (Bld) Few Normal [facility] Comment on above: Order Comment: Speci men Type: BLOOD SPECIMENOrdering Facility: [facility] Address: [address] [place] [address] Performed By: #### 5 7021-8 ####[facility] LABCLIA [id number] [address] LABCLIA [id number] [place] [address] Platelet mean volume (Bld) [Entitic vol] Normal [facility] Comment on above: Order Comment: Speci men Type: BLOOD SPECIMENOrdering Facility: [facility] Address: [address] [place] [address] Result Comment: Unab le to report Performed By: #### 5 7021-8 ####[facility] LABCLIA [id number] [address] LABCLIA [id number] [place] [address] Platelets (Bld) [#/Vol] 60 10*3/uL Low 150-400 [facility] Comment on above: Order Comment: Speci men Type: BLOOD SPECIMENOrdering Facility: [facility] Address: [address] [place] [address] Result Comment: No c lot detected. Checked and Verified Performed By: #### 5 7021-8 ####[facility] LABCLIA [id number] [address] LABCLIA [id number] [place] [address] Platelets Estimate (Bld) [#/Vol] Decreased Normal [facility] Comment on above: Order Comment: Speci men Type: BLOOD SPECIMENOrdering Facility: [facility] Address: [address] [place] [address] Performed By: #### 5 7021-8 ####[facility] LABCLIA [id number] [address] LABCLIA [id number] [place] [address] RBC (Bld) [#/Vol] 2.57 10*6/uL Low 4.20-6.00 [facility] Comment on above: Order Comment: Speci men Type: BLOOD SPECIMENOrdering Facility: [facility] Address: [address] [place] [address] Performed By: #### 5 7021-8 ####[facility] LABCLIA [id number] [address] LABCLIA [id number] [place] [address] RBC FRAGMENTS Few Abnormal None Seen [facility] Comment on above: Order Comment: Speci men Type: BLOOD SPECIMENOrdering Facility: [facility] Address: [address] [place] [address] Performed By: #### 5 7021-8 ####[facility] LABCLIA [id number] [address] LABCLIA [id number] [place] [address] RED CELL MORPH Reviewed: see result s of individual morphologies Normal [facility] Comment on above: Order Comment: Speci men Type: BLOOD SPECIMENOrdering Facility: [facility] Address: [address] [place] [address] Performed By: #### 5 7021-8 ####[facility] LABCLIA [id number] [address] LABCLIA [id number] [place] [address] WBC (Bld) [#/Vol] 2.55 10*3/uL Low 3.70-11.00 [facility] Comment on above: Order Comment: Speci men Type: BLOOD SPECIMENOrdering Facility: [facility] Address: [address] [place] [address] Result Comment: Resu lts checked and verified.No clot detected. Performed By: #### 5 7021-8 ####[facility] LABCLIA [id number] [address] LABCLIA [id number] [place] [address] WBC Left Shift Ql (Bld) Present Normal [facility] Comment on above: Order Comment: Speci men Type: BLOOD SPECIMENOrdering Facility: [facility] Address: [address] [place] [address] Performed By: #### 5 7021-8 ####[facility] LABCLIA [id number] [address] LABCLIA [id number] [place] [address] CNOVSPon 10-30-2022 CNOVSP Normal [facility] Comprehensive metabolic 2000 panelon 10-30-2022 Albumin [Mass/Vol] 3.6 g/dL Low 3.9-4.9 [facility] Comment on above: Order Comment: Speci men Type: BLOOD SPECIMENOrdering Facility: [facility] Address: [address] [place] [address] Performed By: #### 2 4323-8 ####[facility] LABCLIA [id number] [place] [address] ALP [Catalytic activity/Vol] 183 U/L High 38-113 [facility] Comment on above: Order Comment: Speci men Type: BLOOD SPECIMENOrdering Facility: [facility] Address: [address] [place] [address] Performed By: #### 2 4323-8 ####[facility] LABCLIA [id number] [place] [address] ALT [Catalytic activity/Vol] 74 U/L High 10-54 [facility] Comment on above: Order Comment: Speci men Type: BLOOD SPECIMENOrdering Facility: [facility] Address: [address] [place] [address] Performed By: #### 2 4323-8 ####[facility] LABCLIA [id number] [place] [address] Anion gap [Moles/Vol] 11 mmol/L Normal 9-18 [facility] Comment on above: Order Comment: Speci men Type: BLOOD SPECIMENOrdering Facility: [facility] Address: [address] [place] [address] Performed By: #### 2 4323-8 ####[facility] LABCLIA [id number] [place] [address] AST [Catalytic activity/Vol] 39 U/L Normal 14-40 [facility] Comment on above: Order Comment: Speci men Type: BLOOD SPECIMENOrdering Facility: [facility] Address: [address] [place] [address] Performed By: #### 2 4323-8 ####[facility] LABCLIA [id number] [place] [address] Bilirubin [Mass/Vol] 1.0 mg/dL Normal 0.2-1.3 [facility] Comment on above: Order Comment: Speci men Type: BLOOD SPECIMENOrdering Facility: [facility] Address: [address] [place] [address] Performed By: #### 2 4323-8 ####[facility] LABCLIA [id number] [place] [address] Calcium [Mass/Vol] 9.1 mg/dL Normal 8.5-10.2 [facility] Comment on above: Order Comment: Speci men Type: BLOOD SPECIMENOrdering Facility: [facility] Address: [address] [place] [address] Performed By: #### 2 4323-8 ####[facility] LABCLIA [id number] [place] [address] Chloride [Moles/Vol] 100 mmol/L Normal 97-105 [facility] Comment on above: Order Comment: Speci men Type: BLOOD SPECIMENOrdering Facility: [facility] Address: [address] [place] [address] Performed By: #### 2 4323-8 ####[facility] LABCLIA [id number] [place] [address] CO2 [Moles/Vol] 31 mmol/L High 22-30 [facility] Comment on above: Order Comment: Speci men Type: BLOOD SPECIMENOrdering Facility: [facility] Address: [address] [place] [address] Performed By: #### 2 4323-8 ####[facility] LABCLIA [id number] [place] [address] Creatinine [Mass/Vol] 1.34 mg/dL High 0.73-1.22 [facility] Comment on above: Order Comment: Speci men Type: BLOOD SPECIMENOrdering Facility: [facility] Address: [address] [place] [address] Performed By: #### 2 4323-8 ####[facility] LABCLIA [id number] [place] [address] ESTIMATED GLOMERULAR FILTRATION RATE 53 mL/min/1.73m??? Low >=60 [facility] Comment on above: Order Comment: Davi avendaño Type: BLOOD SPECIMENOrdering Facility: [facility] Address: [address] [place] [address] Result Comment: Faye mated Glomerular Filtration Rate [...] actual GFR. Performed By: #### 2 4323-8 ####[facility] LABCLIA [id number] [place] [address] Glucose [Mass/Vol] 229 mg/dL High 74-99 [facility] Comment on above: Order Comment: Davi avendaño Type: BLOOD SPECIMENOrdering Facility: [facility] Address: [address] [place] [address] Result Comment: The [place] [employer] (ADA) provides guidance for cutoff [...] Standards of Medical Care in Diabetes 2016, [place] [employer]. Diabetes Care. 2016.39(Suppl 1). Performed By: #### 2 4323-8 ####[facility] LABCLIA [id number] [place] [address] Potassium [Moles/Vol] 3.9 mmol/L Normal 3.7-5.1 [facility] Comment on above: Order Comment: Speci men Type: BLOOD SPECIMENOrdering Facility: [facility] Address: [address] [place] [address] Performed By: #### 2 4323-8 ####[facility] LABCLIA [id number] [place] [address] Protein [Mass/Vol] 7.2 g/dL Normal 6.3-8.0 [facility] Comment on above: Order Comment: Speci men Type: BLOOD SPECIMENOrdering Facility: [facility] Address: [address] [place] [address] Performed By: #### 2 4323-8 ####[facility] LABIA [id number] [place] [address] Sodium [Moles/Vol] 142 mmol/L Normal 136-144 [facility] Comment on above: Order Comment: Speci men Type: BLOOD SPECIMENOrdering Facility: [facility] Address: [address] [place] [address] Performed By: #### 2 4323-8 ####[facility] LABCLIA [id number] [place] [address] Urea nitrogen [Mass/Vol] 24 mg/dL Normal 9-24 [facility] Comment on above: Order Comment: Speci men Type: BLOOD SPECIMENOrdering Facility: [facility] Address: [address] [place] [address] Performed By: #### 2 4323-8 ####[facility] LABIA [id number] [place] [address] HEMOGRAM AND PLATELon 2022 Hematocrit (Bld) [Volume fraction] 21.7 % Critically low 42.0-54.0 [facility] Comment on above: Performed By: #### T NS, PRBC #### [facility] [address] [place] [address] Dr. Benito To Hemoglobin (Bld) [Mass/Vol] 6.9 g/dL Critically low 14.0-18.0 [facility] Comment on above: Performed By: #### T NS, PRBC #### [facility] [address] [place] [address] Dr. Benito To MCH (RBC) [Entitic mass] 31.7 pg Normal 25.9-34.0 [facility] Comment on above: Performed By: #### T NS, PRBC #### [facility] [address] [place] [address] Dr. Benito To MCHC (RBC) [Mass/Vol] 31.8 g/dL Normal 29.9-35.2 [facility] Comment on above: Performed By: #### T NS, PRBC #### [facility] [address] [place] [address] Dr. Benito To MCV (RBC) [Entitic vol] 99.5 fL Critically high 80.0-94.0 [facility] Comment on above: Performed By: #### T NS, PRBC #### [facility] [address] [place] [address] Dr. Benito To PLT 54 103/ul Critically low 150-450 [facility] Comment on above: Performed By: #### T NS, PRBC #### [facility] [address] [place] [address] Dr. Benito To RBC 2.18 106/ul Critically low 4.70-6.10 [facility] Comment on above: Performed By: #### T NS, PRBC #### [facility] [address] [place] [address] Dr. Benito To WBC 4.3 103/ul Normal 4.0-11.0 [facility] Comment on above: Performed By: #### T NS, PRBC #### [facility] [address] [place] [address] Dr. Benito To TYPE AND SCREENon 10-25-2022 TYPE AND SCREEN Negative Normal [facility] Comment on above: Performed By: #### T NS, PRBC #### [facility] [address] [place], [place] [address] Dr. Benito To CNPNon 10-24-2022 CNPN Normal [facility] CBC W Auto Differential pane l (Bld)on 10-23-2022 Anisocytosis Ql (Bld) Present Normal [facility] Comment on above: Order Comment: Speci men Type: BLOOD SPECIMENOrdering Facility: [facility] Address: [address] [place] [address] Performed By: #### 5 7021-8 ####[facility] LABCLIA [id number] [address] LABCLIA [id number] [place] [address] Basophils (Bld) [#/Vol] 0.03 10*3/uL Normal <0.11 [facility] Comment on above: Order Comment: Speci men Type: BLOOD SPECIMENOrdering Facility: [facility] Address: [address] Performed By: #### 5 7021-8 ####[facility] LABCLIA [id number] [address] LABCLIA [id number] [place] [address] Basophils/100 WBC (Bld) 1.0 % Normal [facility] Comment on above: Order Comment: Speci men Type: BLOOD SPECIMENOrdering Facility: [facility] Address: [address] [place] [address] Performed By: #### 5 7021-8 ####[facility] LABCLIA [id number] [address] LABCLIA [id number] [place] [address] BLAST% 1.0 % High <=0.0 [facility] Comment on above: Order Comment: Speci men Type: BLOOD SPECIMENOrdering Facility: [facility] Address: [address] [place] [address] Performed By: #### 5 7021-8 ####[facility] LABCLIA [id number] [address] LABCLIA [id number] [place] [address] Differential cell count method Nom (Bld) Manual Normal [facility] Comment on above: Order Comment: Speci men Type: BLOOD SPECIMENOrdering Facility: [facility] Address: [address] [place] [address] Performed By: #### 5 7021-8 ####[facility] LABCLIA [id number] [address] LABCLIA [id number] [place] [address] Eosinophils (Bld) [#/Vol] 0.00 10*3/uL Normal <0.46 [facility] Comment on above: Order Comment: Speci men Type: BLOOD SPECIMENOrdering Facility: [facility] Address: [address] [place] [address] Performed By: #### 5 7021-8 ####[facility] LABCLIA [id number] [address] LABCLIA [id number] [place] [address] Eosinophils/100 WBC (Bld) 0.0 % Normal [facility] Comment on above: Order Comment: Speci men Type: BLOOD SPECIMENOrdering Facility: [facility] Address: [address] [place], [place] [address] Performed By: #### 5 7021-8 ####[facility] LABCLIA [id number] [place] [id number] LABCLIA [id number] [place] [address] Erythrocyte distribution width (RBC) [Ratio] 23.7 % High 11.5-15.0 [facility] Comment on above: Order Comment: Speci men Type: BLOOD SPECIMENOrdering Facility: [facility] Address: [address] [place] [address] Performed By: #### 5 7021-8 ####[facility] LABCLIA [id number] [address] LABCLIA [id number] [place] [address] Hematocrit (Bld) [Volume fraction] 23.4 % Low 39.0-51.0 [facility] Comment on above: Order Comment: Speci men Type: BLOOD SPECIMENOrdering Facility: [facility] Address: [address] [place] [address] Performed By: #### 5 7021-8 ####[facility] LABCLIA [id number] [address] LABCLIA [id number] [place] [address] Hemoglobin (Bld) [Mass/Vol] 7.4 g/dL Low 13.0-17.0 [facility] Comment on above: Order Comment: Speci men Type: BLOOD SPECIMENOrdering Facility: [facility] Address: [address] [place], [place] [address] Performed By: #### 5 7021-8 ####[facility] LABCLIA [id number] [address] LABCLIA [id number] [place] [address] Lymphocytes (Bld) [#/Vol] 1.11 10*3/uL Normal 1.00-4.00 [facility] Comment on above: Order Comment: Speci men Type: BLOOD SPECIMENOrdering Facility: [facility] Address: [address] [place] [address] Performed By: #### 5 7021-8 ####[facility] LABCLIA [id number] [address] LABCLIA [id number] [place] [address] Lymphocytes/100 WBC (Bld) 32.0 % Normal [facility] Comment on above: Order Comment: Speci men Type: BLOOD SPECIMENOrdering Facility: [facility] Address: [address] [place] [address] Performed By: #### 5 7021-8 ####[facility] LABCLIA [id number] [address] LABCLIA [id number] [place] [address] MCH (RBC) [Entitic mass] 31.5 pg Normal 26.0-34.0 [facility] Comment on above: Order Comment: Speci men Type: BLOOD SPECIMENOrdering Facility: [facility] Address: [address] [place] [address] Performed By: #### 5 7021-8 ####[facility] LABCLIA [id number] [address] LABCLIA [id number] [place] [address] MCHC (RBC) [Mass/Vol] 31.6 g/dL Normal 30.5-36.0 [facility] Comment on above: Order Comment: Speci men Type: BLOOD SPECIMENOrdering Facility: [facility] Address: [address] [place] [address] Performed By: #### 5 7021-8 ####[facility] LABCLIA [id number] [place] [address] [facility] LABCLIA [id number] [place] [address] MCV (RBC) [Entitic vol] 99.6 fL Normal 80.0-100.0 [facility] Comment on above: Order Comment: Speci men Type: BLOOD SPECIMENOrdering Facility: [facility] Address: [address] [place] [address] Performed By: #### 5 7021-8 ####[facility] LABCLIA [id number] [address] LABCLIA [id number] [place] [address] Monocytes (Bld) [#/Vol] 0.59 10*3/uL Normal <0.87 [facility] Comment on above: Order Comment: Speci men Type: BLOOD SPECIMENOrdering Facility: [facility] Address: [address] [place], [place] [address] Performed By: #### 5 7021-8 ####[facility] LABCLIA [id number] [address] LABCLIA [id number] [place] [address] Monocytes/100 WBC (Bld) 17.0 % Normal [facility] Comment on above: Order Comment: Speci men Type: BLOOD SPECIMENOrdering Facility: [facility] Address: [address] [place], [place] [address] Performed By: #### 5 7021-8 ####[facility] LABCLIA [id number] [address] LABCLIA [id number] [place] [address] MYELO% 9.0 % Normal [facility] Comment on above: Order Comment: Speci men Type: BLOOD SPECIMENOrdering Facility: [facility] Address: [address] Performed By: #### 5 7021-8 ####[facility] LABCLIA [id number] [address] LABCLIA [id number] [place] [address] Neutrophils (Bld) [#/Vol] 1.39 10*3/uL Low 1.45-7.50 [facility] Comment on above: Order Comment: Speci men Type: BLOOD SPECIMENOrdering Facility: [facility] Address: [address] Performed By: #### 5 7021-8 ####[facility] LABCLIA [id number] [address] LABCLIA [id number] [place] [address] Neutrophils/100 WBC (Bld) 40.0 % Normal [facility] Comment on above: Order Comment: Speci men Type: BLOOD SPECIMENOrdering Facility: [facility] Address: [address] [place], [place] [address] Performed By: #### 5 7021-8 ####[facility] LABCLIA [id number] [address] LABCLIA [id number] [place] [address] Nucleated RBC (Bld) [#/Vol] 0.07 10*3/uL High <0.01 [facility] Comment on above: Order Comment: Speci men Type: BLOOD SPECIMENOrdering Facility: [facility] Address: [address] [place], [place] [address] Performed By: #### 5 7021-8 ####[facility] LABCLIA [id number] [address] LABCLIA [id number] [place] [address] Nucleated RBC/100 WBC (Bld) [Ratio] 2.0 /100 WBC Normal [facility] Comment on above: Order Comment: Speci men Type: BLOOD SPECIMENOrdering Facility: [facility] Address: [address] [place] [address] Performed By: #### 5 7021-8 ####[facility] LABCLIA [id number] [address] LABCLIA [id number] [place] [address] Ovalocytes LM Ql (Bld) Few Normal [facility] Comment on above: Order Comment: Speci men Type: BLOOD SPECIMENOrdering Facility: [facility] Address: [address] [place] [address] Performed By: #### 5 7021-8 ####[facility] LABCLIA [id number] [address] LABCLIA [id number] [place] [address] Platelet mean volume (Bld) [Entitic vol] Normal [facility] Comment on above: Order Comment: Speci men Type: BLOOD SPECIMENOrdering Facility: [facility] Address: [address] [place] [address] Result Comment: Unab le to report Performed By: #### 5 7021-8 ####[facility] LABCLIA [id number] [address] LABCLIA [id number] [place] [address] Platelets (Bld) [#/Vol] 65 10*3/uL Low 150-400 [facility] Comment on above: Order Comment: Speci men Type: BLOOD SPECIMENOrdering Facility: [facility] Address: [address] [place] [address] Performed By: #### 5 7021-8 ####[facility] LABCLIA [id number] [place] [address] [facility] LABCLIA [id number] [place] [address] Platelets Estimate (Bld) [#/Vol] Decreased Normal [facility] Comment on above: Order Comment: Speci men Type: BLOOD SPECIMENOrdering Facility: [facility] Address: [address] [place] [address] Performed By: #### 5 7021-8 ####[facility] LABCLIA [id number] [address] LABCLIA [id number] [place] [address] Polychromasia LM Ql (Bld) Slight Normal [facility] Comment on above: Order Comment: Speci men Type: BLOOD SPECIMENOrdering Facility: [facility] Address: [address] [place], [place] [address] Performed By: #### 5 7021-8 ####[facility] LABCLIA [id number] [address] LABCLIA [id number] [place] [address] RBC (Bld) [#/Vol] 2.35 10*6/uL Low 4.20-6.00 [facility] Comment on above: Order Comment: Speci men Type: BLOOD SPECIMENOrdering Facility: [facility] Address: [address] [place] [address] Performed By: #### 5 7021-8 ####[facility] LABCLIA [id number] [address] LABCLIA [id number] [place] [address] RED CELL MORPH Reviewed: see result s of individual morphologies Normal [facility] Comment on above: Order Comment: Speci men Type: BLOOD SPECIMENOrdering Facility: [facility] Address: [address] [place] [address] Performed By: #### 5 7021-8 ####[facility] LABCLIA [id number] [address] LABCLIA [id number] [place] [address] WBC (Bld) [#/Vol] 3.48 10*3/uL Low 3.70-11.00 [facility] Comment on above: Order Comment: Speci men Type: BLOOD SPECIMENOrdering Facility: [facility] Address: [address] [place] [address] Result Comment: Resu lts checked and verified.No clot detected. Performed By: #### 5 7021-8 ####[facility] LABCLIA [id number] [address] LABCLIA [id number] [place] [address] WBC Left Shift Ql (Bld) Present Normal [facility] Comment on above: Order Comment: Speci men Type: BLOOD SPECIMENOrdering Facility: [facility] Address: [address] [place] [address] Performed By: #### 5 7021-8 ####[facility] LABCLIA [id number] [address] LABCLIA [id number] [place] [address] Comprehensive metabolic 2000 panelon 10-23-2022 Albumin [Mass/Vol] 3.8 g/dL Low 3.9-4.9 [facility] Comment on above: Order Comment: Speci men Type: BLOOD SPECIMENOrdering Facility: [facility] Address: [address] [place] [address] Performed By: #### 2 4323-8 ####[facility] LABCLIA [id number] [place] [address] ALP [Catalytic activity/Vol] 166 U/L High 38-113 [facility] [facility] Comment on above: Order Comment: Speci men Type: BLOOD SPECIMENOrdering Facility: [facility] Address: [address] [place] [address] Performed By: #### 2 4323-8 ####[facility] LABCLIA [id number] [place] [address] ALT [Catalytic activity/Vol] 63 U/L High 10-54 [facility] Comment on above: Order Comment: Speci men Type: BLOOD SPECIMENOrdering Facility: [facility] Address: [address] [place] [address] Performed By: #### 2 4323-8 ####[facility] LABCLIA [id number] [place] [address] Anion gap [Moles/Vol] 12 mmol/L Normal 9-18 [facility] Comment on above: Order Comment: Speci men Type: BLOOD SPECIMENOrdering Facility: [facility] Address: [address] [place] [address] Performed By: #### 2 4323-8 ####[facility] LABCLIA [id number] [place] [address] AST [Catalytic activity/Vol] 36 U/L Normal 14-40 [facility] Comment on above: Order Comment: Speci men Type: BLOOD SPECIMENOrdering Facility: [facility] Address: [address] [place] [address] Performed By: #### 2 4323-8 ####[facility] LABCLIA [id number] [place] [address] Bilirubin [Mass/Vol] 0.9 mg/dL Normal 0.2-1.3 [facility] Comment on above: Order Comment: Speci men Type: BLOOD SPECIMENOrdering Facility: [facility] Address: [address] [address] Performed By: #### 2 4323-8 ####[facility] LABCLIA [id number] [place] [address] Calcium [Mass/Vol] 9.2 mg/dL Normal 8.5-10.2 [facility] Comment on above: Order Comment: Speci men Type: BLOOD SPECIMENOrdering Facility: [facility] Address: [address] [address] Performed By: #### 2 4323-8 ####[facility] LABCLIA [id number] [place] [address] Chloride [Moles/Vol] 101 mmol/L Normal 97-105 [facility] Comment on above: Order Comment: Speci men Type: BLOOD SPECIMENOrdering Facility: [facility] Address: [address] [address] Performed By: #### 2 4323-8 ####[facility] LABCLIA [id number] [place] [address] CO2 [Moles/Vol] 29 mmol/L Normal 22-30 [facility] Comment on above: Order Comment: Speci men Type: BLOOD SPECIMENOrdering Facility: [facility] Address: [address] [place] [address] Performed By: #### 2 4323-8 ####[facility] LABCLIA [id number] [place] [address] Creatinine [Mass/Vol] 1.47 mg/dL High 0.73-1.22 [facility] Comment on above: Order Comment: Speci men Type: BLOOD SPECIMENOrdering Facility: [facility] Address: [address] [place] [address] Performed By: #### 2 4323-8 ####[facility] LABCLIA [id number] [place] [address] ESTIMATED GLOMERULAR FILTRATION RATE 47 mL/min/1.73m??? Low >=60 [facility] Comment on above: Order Comment: Davi avendaño Type: BLOOD SPECIMENOrdering Facility: [facility] Address: [address] [place] [phone] Result Comment: Faye mated Glomerular Filtration Rate [...] actual GFR. Performed By: #### 2 4323-8 ####[facility] LABCLIA [id number] [place] [address] Glucose [Mass/Vol] 192 mg/dL High 74-99 [facility] Comment on above: Order Comment: Davi avendaño Type: BLOOD SPECIMENOrdering Facility: [facility] Address: [address] [place], [place] [address] Result Comment: The [place] [employer] (ADA) provides guidance for cutoff [...] Standards of Medical Care in Diabetes 2016, [place] [employer]. Diabetes Care. 2016.39(Suppl 1). Performed By: #### 2 4323-8 ####[facility] LABCLIA [id number] [place] [address] Potassium [Moles/Vol] 4.0 mmol/L Normal 3.7-5.1 [facility] Comment on above: Order Comment: Davi avendaño Type: BLOOD SPECIMENOrdering Facility: [facility] Address: [address] [address] Performed By: #### 2 4323-8 ####[facility] LABCLIA [id number] [place] [address] Protein [Mass/Vol] 7.1 g/dL Normal 6.3-8.0 [facility] Comment on above: Order Comment: Speci men Type: BLOOD SPECIMENOrdering Facility: [facility] Address: [address] [address] Performed By: #### 2 4323-8 ####[facility] LABCLIA [id number] [place] [address] Sodium [Moles/Vol] 142 mmol/L Normal 136-144 [facility] Comment on above: Order Comment: Speci men Type: BLOOD SPECIMENOrdering Facility: [facility] Address: [address] [address] Performed By: #### 2 4323-8 ####[facility] LABCLIA [id number] [place] [address] Urea nitrogen [Mass/Vol] 27 mg/dL High 9-24 [facility] Comment on above: Order Comment: Speci men Type: BLOOD SPECIMENOrdering Facility: [facility] Address: [address] [address] Performed By: #### 2 4323-8 ####[facility] LABCLIA [id number] [place] [address] CNPNon 10-17-2022 CNPN Normal [facility] CBC W Auto Differential pane l (Bld)on 10-16-2022 Anisocytosis Ql (Bld) Present Normal [facility] Comment on above: Order Comment: Speci men Type: BLOOD SPECIMENOrdering Facility: [facility] Address: [address] [place] [address] Performed By: #### 5 7021-8 ####[facility] LABCLIA [id number] [address] LABCLIA [id number] [place] [address] Basophils (Bld) [#/Vol] 0.03 10*3/uL Normal <0.11 [facility] Comment on above: Order Comment: Speci men Type: BLOOD SPECIMENOrdering Facility: [facility] Address: [address] [place] [address] Performed By: #### 5 7021-8 ####[facility] LABCLIA [id number] [address] LABCLIA [id number] [place] [address] Basophils/100 WBC (Bld) 1.0 % Normal [facility] Comment on above: Order Comment: Speci men Type: BLOOD SPECIMENOrdering Facility: [facility] Address: [address] [place] [address] Performed By: #### 5 7021-8 ####[facility] LABCLIA [id number] [address] LABCLIA [id number] [place] [address] Differential cell count method Nom (Bld) Manual Normal [facility] Comment on above: Order Comment: Speci men Type: BLOOD SPECIMENOrdering Facility: [facility] Address: [address] [place], [place] [address] Performed By: #### 5 7021-8 ####[facility] LABCLIA [id number] [address] LABCLIA [id number] [place] [address] Eosinophils (Bld) [#/Vol] 0.03 10*3/uL Normal <0.46 [facility] Comment on above: Order Comment: Speci men Type: BLOOD SPECIMENOrdering Facility: [facility] Address: [address] [place] [address] Performed By: #### 5 7021-8 ####[facility] LABCLIA [id number] [address] LABCLIA [id number] [place] [address] Eosinophils/100 WBC (Bld) 1.0 % Normal [facility] Comment on above: Order Comment: Speci men Type: BLOOD SPECIMENOrdering Facility: [facility] Address: [address] [place], [place] [address] Performed By: #### 5 7021-8 ####[facility] LABCLIA [id number] [address] LABCLIA [id number] [place] [address] Erythrocyte distribution width (RBC) [Ratio] 23.0 % High 11.5-15.0 [facility] Comment on above: Order Comment: Speci men Type: BLOOD SPECIMENOrdering Facility: [facility] Address: [address] [place] [address] Performed By: #### 5 7021-8 ####[facility] LABCLIA [id number] [address] LABCLIA [id number] [place] [address] Giant platelets LM Ql (Bld) Occasional Normal [facility] Comment on above: Order Comment: Speci men Type: BLOOD SPECIMENOrdering Facility: [facility] Address: [address] [place] [address] Performed By: #### 5 7021-8 ####[facility] LABCLIA [id number] [address] LABCLIA [id number] [place] [address] Hematocrit (Bld) [Volume fraction] 20.8 % Low 39.0-51.0 [facility] Comment on above: Order Comment: Speci men Type: BLOOD SPECIMENOrdering Facility: [facility] Address: [address] [place] [address] Performed By: #### 5 7021-8 ####[facility] LABCLIA [id number] [address] LABCLIA [id number] [place] [address] Hemoglobin (Bld) [Mass/Vol] 6.4 g/dL Low 13.0-17.0 [facility] Comment on above: Order Comment: Speci men Type: BLOOD SPECIMENOrdering Facility: [facility] Address: [address] [place] [address] Performed By: #### 5 7021-8 ####[facility] LABCLIA [id number] [address] LABCLIA [id number] [place] [address] Lymphocytes (Bld) [#/Vol] 1.19 10*3/uL Normal 1.00-4.00 [facility] Comment on above: Order Comment: Speci men Type: BLOOD SPECIMENOrdering Facility: [facility] Address: [address] [place] [address] Performed By: #### 5 7021-8 ####[facility] LABCLIA [id number] [address] LABIA [id number] [place] [address] Lymphocytes/100 WBC (Bld) 35.0 % Normal [facility] Comment on above: Order Comment: Speci men Type: BLOOD SPECIMENOrdering Facility: [facility] Address: [address] [place] [address] Performed By: #### 5 7021-8 ####[facility] LABCLIA [id number] [address] LABCLIA [id number] [place] [address] MCH (RBC) [Entitic mass] 31.7 pg Normal 26.0-34.0 [facility] Comment on above: Order Comment: Speci men Type: BLOOD SPECIMENOrdering Facility: [facility] Address: [address] [address] Performed By: #### 5 7021-8 ####[facility] LABCLIA [id number] [address] LABCLIA [id number] [place] [address] MCHC (RBC) [Mass/Vol] 30.8 g/dL Normal 30.5-36.0 [facility] Comment on above: Order Comment: Speci men Type: BLOOD SPECIMENOrdering Facility: [facility] Address: [address] Performed By: #### 5 7021-8 ####[facility] LABCLIA [id number] [address] LABCLIA [id number] [place] [address] MCV (RBC) [Entitic vol] 103.0 fL High 80.0-100.0 [facility] Comment on above: Order Comment: Speci men Type: BLOOD SPECIMENOrdering Facility: [facility] Address: [address] [place] [address] Performed By: #### 5 7021-8 ####[facility] LABCLIA [id number] [address] LABCLIA [id number] [place] [address] Metamyelocytes/100 WBC (Bld) 2.0 % Normal [facility] Comment on above: Order Comment: Speci men Type: BLOOD SPECIMENOrdering Facility: [facility] Address: [address] [place] [address] Performed By: #### 5 7021-8 ####[facility] LABCLIA [id number] [address] LABCLIA [id number] [place] [address] Monocytes (Bld) [#/Vol] 0.54 10*3/uL Normal <0.87 [facility] Comment on above: Order Comment: Speci men Type: BLOOD SPECIMENOrdering Facility: [facility] Address: [address] [place] [address] Performed By: #### 5 7021-8 ####[facility] LABCLIA [id number] [address] LABCLIA [id number] [place] [address] Monocytes/100 WBC (Bld) 16.0 % Normal [facility] Comment on above: Order Comment: Speci men Type: BLOOD SPECIMENOrdering Facility: [facility] Address: [address] [place], [place] [address] Performed By: #### 5 7021-8 ####[facility] LABCLIA [id number] [address] LABCLIA [id number] [place] [address] MYELO% 8.0 % Normal [facility] Comment on above: Order Comment: Speci men Type: BLOOD SPECIMENOrdering Facility: [facility] Address: [address] [place], [place] [address] Performed By: #### 5 7021-8 ####[facility] LABCLIA [id number] [address] [place] [address] LABCLIA [id number] [place] [address] Neutrophils (Bld) [#/Vol] 1.26 10*3/uL Low 1.45-7.50 [facility] Comment on above: Order Comment: Speci men Type: BLOOD SPECIMENOrdering Facility: [facility] Address: [address] [place] [address] Performed By: #### 5 7021-8 ####[facility] LABCLIA [id number] [address] LABCLIA [id number] [place] [address] Neutrophils/100 WBC (Bld) 37.0 % Normal [facility] Comment on above: Order Comment: Speci men Type: BLOOD SPECIMENOrdering Facility: [facility] Address: [address] [place] [address] Performed By: #### 5 7021-8 ####[facility] LABCLIA [id number] [address] LABCLIA [id number] [place] [address] Nucleated RBC (Bld) [#/Vol] 0.07 10*3/uL High <0.01 [facility] Comment on above: Order Comment: Speci men Type: BLOOD SPECIMENOrdering Facility: [facility] Address: [address] [place] [address] Performed By: #### 5 7021-8 ####[facility] LABCLIA [id number] [address] LABCLIA [id number] [place] [address] Nucleated RBC/100 WBC (Bld) [Ratio] 2.0 /100 WBC Normal [facility] Comment on above: Order Comment: Speci men Type: BLOOD SPECIMENOrdering Facility: [facility] Address: [address] [place] [address] Performed By: #### 5 7021-8 ####[facility] LABCLIA [id number] [address] LABCLIA [id number] [place] [address] Ovalocytes LM Ql (Bld) Few Normal [facility] Comment on above: Order Comment: Speci men Type: BLOOD SPECIMENOrdering Facility: [facility] Address: [address] [place] [address] Performed By: #### 5 7021-8 ####[facility] LABCLIA [id number] [address] LABCLIA [id number] [place] [address] Platelet mean volume (Bld) [Entitic vol] Normal [facility] Comment on above: Order Comment: Speci men Type: BLOOD SPECIMENOrdering Facility: [facility] Address: [address] [place] [address] Result Comment: Unab le to Report. Performed By: #### 5 7021-8 ####[facility] LABCLIA [id number] [address] LABCLIA [id number] [place] [address] Platelets (Bld) [#/Vol] 60 10*3/uL Low 150-400 [facility] Comment on above: Order Comment: Speci men Type: BLOOD SPECIMENOrdering Facility: [facility] Address: [address] [place] [address] Result Comment: Resu lts checked and verified.No clot detected. Performed By: #### 5 7021-8 ####[facility] LABCLIA [id number] [address] LABCLIA [id number] [place] [address] Platelets Estimate (Bld) [#/Vol] Decreased Normal [facility] Comment on above: Order Comment: Speci men Type: BLOOD SPECIMENOrdering Facility: [facility] Address: [address] [place] [address] Performed By: #### 5 7021-8 ####[facility] LABCLIA [id number] [address] LABCLIA [id number] [place] [address] Polychromasia LM Ql (Bld) Slight Normal [facility] Comment on above: Order Comment: Speci men Type: BLOOD SPECIMENOrdering Facility: [facility] Address: [address] [place] [address] Performed By: #### 5 7021-8 ####[facility] LABCLIA [id number] [address] LABCLIA [id number] [place] [address] RBC (Bld) [#/Vol] 2.02 10*6/uL Low 4.20-6.00 [facility] Comment on above: Order Comment: Speci men Type: BLOOD SPECIMENOrdering Facility: [facility] Address: [address] [place], [place] [address] Performed By: #### 5 7021-8 ####[facility] LABCLIA [id number] [address] LABCLIA [id number] [place] [address] RED CELL MORPH Reviewed: see result s of individual morphologies Normal [facility] Comment on above: Order Comment: Speci men Type: BLOOD SPECIMENOrdering Facility: [facility] Address: [address] [place] [address] Performed By: #### 5 7021-8 ####[facility] LABCLIA [id number] [address] LABCLIA [id number] [place] [address] WBC (Bld) [#/Vol] 3.40 10*3/uL Low 3.70-11.00 [facility] Comment on above: Order Comment: Speci men Type: BLOOD SPECIMENOrdering Facility: [facility] Address: [address] [place] [address] Result Comment: Resu lts checked and verified.No clot detected. Performed By: #### 5 7021-8 ####[facility] LABCLIA [id number] [address] LABCLIA [id number] [place] [address] WBC Left Shift Ql (Bld) Present Normal [facility] Comment on above: Order Comment: Speci men Type: BLOOD SPECIMENOrdering Facility: [facility] Address: [address] [place] [address] Performed By: #### 5 7021-8 ####[facility] LABCLIA [id number] [address] LABCLIA [id number] [place] [address] Comprehensive metabolic 2000 panelon 10-16-2022 Albumin [Mass/Vol] 3.7 g/dL Low 3.9-4.9 [facility] Comment on above: Order Comment: Speci men Type: BLOOD SPECIMENOrdering Facility: [facility] Address: [address] [place] [address] Performed By: #### 2 4323-8 ####[facility] LABCLIA [id number] [place] [address] ALP [Catalytic activity/Vol] 165 U/L High 38-113 [facility] Comment on above: Order Comment: Speci men Type: BLOOD SPECIMENOrdering Facility: [facility] Address: [address] [place] [address] Performed By: #### 2 4323-8 ####[facility] LABCLIA [id number] [place] [address] ALT [Catalytic activity/Vol] 67 U/L High 10-54 [facility] Comment on above: Order Comment: Speci men Type: BLOOD SPECIMENOrdering Facility: [facility] Address: [address] [place] [address] Performed By: #### 2 4323-8 ####[facility] LABCLIA [id number] [place] [address] Anion gap [Moles/Vol] 12 mmol/L Normal 9-18 [facility] Comment on above: Order Comment: Speci men Type: BLOOD SPECIMENOrdering Facility: [facility] Address: [address] [place] [address] Performed By: #### 2 4323-8 ####[facility] LABCLIA [id number] [place] [address] AST [Catalytic activity/Vol] 36 U/L Normal 14-40 [facility] Comment on above: Order Comment: Speci men Type: BLOOD SPECIMENOrdering Facility: [facility] Address: [address] [place] [address] Performed By: #### 2 4323-8 ####[facility] LABCLIA [id number] [place] [address] Bilirubin [Mass/Vol] 0.8 mg/dL Normal 0.2-1.3 [facility] Comment on above: Order Comment: Speci men Type: BLOOD SPECIMENOrdering Facility: [facility] Address: [address] [address] Performed By: #### 2 4323-8 ####[facility] LABCLIA [id number] [place] [address] Calcium [Mass/Vol] 9.2 mg/dL Normal 8.5-10.2 [facility] Comment on above: Order Comment: Speci men Type: BLOOD SPECIMENOrdering Facility: [facility] Address: [address] [address] Performed By: #### 2 4323-8 ####[facility] LABCLIA [id number] [place] [address] Chloride [Moles/Vol] 100 mmol/L Normal 97-105 [facility] Comment on above: Order Comment: Speci men Type: BLOOD SPECIMENOrdering Facility: [facility] Address: [address] [address] Performed By: #### 2 4323-8 ####[facility] LABCLIA [id number] [place] [address] CO2 [Moles/Vol] 30 mmol/L Normal 22-30 [facility] Comment on above: Order Comment: Speci men Type: BLOOD SPECIMENOrdering Facility: [facility] Address: [address] [address] Performed By: #### 2 4323-8 ####[facility] LABCLIA [id number] [place] [address] Creatinine [Mass/Vol] 1.54 mg/dL High 0.73-1.22 [facility] Comment on above: Order Comment: Speci men Type: BLOOD SPECIMENOrdering Facility: [facility] Address: [address] [place] [address] Performed By: #### 2 4323-8 ####[facility] LABCLIA [id number] [place] [address] ESTIMATED GLOMERULAR FILTRATION RATE 44 mL/min/1.73m??? Low >=60 [facility] Comment on above: Order Comment: Davi avendaño Type: BLOOD SPECIMENOrdering Facility: [facility] Address: [address] [phone] Result Comment: Faye mated Glomerular Filtration Rate [...] actual GFR. Performed By: #### 2 4323-8 ####[facility] LABCLIA [id number] [place] [address] Glucose [Mass/Vol] 145 mg/dL High 74-99 [facility] Comment on above: Order Comment: Davi avendaño Type: BLOOD SPECIMENOrdering Facility: [facility] Address: [address] [place] [place] [phone] Result Comment: The [place] [employer] (ADA) provides guidance for cutoff [...] Standards of Medical Care in Diabetes 2016, [place] [employer]. Diabetes Care. 2016.39(Suppl 1). Performed By: #### 2 4323-8 ####[facility] LABCLIA [id number] [place] [address] Potassium [Moles/Vol] 4.0 mmol/L Normal 3.7-5.1 [facility] Comment on above: Order Comment: Davi avendaño Type: BLOOD SPECIMENOrdering Facility: [facility] Address: [address] [place] [address] Performed By: #### 2 4323-8 ####[facility] LABCLIA [id number] [place] [address] Protein [Mass/Vol] 6.9 g/dL Normal 6.3-8.0 [facility] Comment on above: Order Comment: Speci men Type: BLOOD SPECIMENOrdering Facility: [facility] Address: [address] [place] [address] Performed By: #### 2 4323-8 ####[facility] LABCLIA [id number] [place] [address] Sodium [Moles/Vol] 142 mmol/L Normal 136-144 [facility] Comment on above: Order Comment: Speci men Type: BLOOD SPECIMENOrdering Facility: [facility] Address: [address] [place] [address] Performed By: #### 2 4323-8 ####[facility] LABCLIA [id number] [place] [address] Urea nitrogen [Mass/Vol] 26 mg/dL High 9-24 [facility] Comment on above: Order Comment: Speci men Type: BLOOD SPECIMENOrdering Facility: [facility] Address: [address] [place] [address] Performed By: #### 2 4323-8 ####[facility] LABCLIA [id number] [place] [address] HEMOGRAM AND PLATELon 2022 Hematocrit (Bld) [Volume fraction] 19.3 % Critically low 42.0-54.0 [facility] Comment on above: Performed By: #### T ZEHRA, PRBC #### [facility] [address] [place], [place] [address] Dr. Benito To Hemoglobin (Bld) [Mass/Vol] 6.3 g/dL Critically low 14.0-18.0 [facility] Comment on above: Performed By: #### T NS, PRBC #### [facility] [address] [place] [address] Dr. Benito To MCH (RBC) [Entitic mass] 32.6 pg Normal 25.9-34.0 [facility] Comment on above: Performed By: #### T NS, PRBC #### [facility] [address] [place] [address] Dr. Benito To MCHC (RBC) [Mass/Vol] 32.6 g/dL Normal 29.9-35.2 [facility] Comment on above: Performed By: #### T NS, PRBC #### [facility] [address] [place] [address] Dr. Benito To MCV (RBC) [Entitic vol] 100.0 fL Critically high 80.0-94.0 [facility] Comment on above: Performed By: #### T NS, PRBC #### [facility] [address] [place] [address] Dr. Benito To PLT 53 103/ul Critically low 150-450 [facility] Comment on above: Performed By: #### T NS, PRBC #### [facility] [address] [place] [address] Dr. Benito To RBC 1.93 106/ul Critically low 4.70-6.10 [facility] Comment on above: Performed By: #### T NS, PRBC #### [facility] [address] [place] [address] Dr. Benito To WBC 2.8 103/ul Critically low 4.0-11.0 [facility] Comment on above: Performed By: #### T NS, PRBC #### [facility] [address] [place] [address] Dr. Benito To PRBC LEUKOREDUCEDon 10-17-19 PRBC LEUKOREDUCED Cross Match Result Compatible Unit Blood Type A Pos Unit Number [id number] Status Information Transfused Product ID Red Blood Cells Product Code [id number] Normal [facility] Comment on above: Performed By: #### T NS, PRBC #### [facility] [address] [place] [address] Dr. Benito To TYPE AND SCREENon 10-16-2022 TYPE AND SCREEN Negative Normal [facility] Comment on above: Performed By: #### T NS, PRBC #### [facility] [address] [place] [address] [address] [address] Benito To CNOVSPon 10-15-2022 CNOVSP Normal [facility] Consultation Noteon 10-16-19 Consultation Note [id number]#[id number] :127 Normal [facility] CBC W Auto Differential pane l (Bld)on 10-09-2022 Anisocytosis Ql (Bld) Present Normal [facility] Comment on above: Order Comment: Speci men Type: BLOOD SPECIMENOrdering Facility: [facility] Address: [address] [place] [address] Performed By: #### 5 7021-8 ####[facility] LABCLIA [id number] [address] LABCLIA [id number] [place] [address] Basophils (Bld) [#/Vol] 0.03 10*3/uL Normal <0.11 [facility] Comment on above: Order Comment: Speci men Type: BLOOD SPECIMENOrdering Facility: [facility] Address: [address] [place] [address] Performed By: #### 5 7021-8 ####[facility] LABCLIA [id number] [address] LABCLIA [id number] [place] [address] Basophils/100 WBC (Bld) 1.0 % Normal [facility] Comment on above: Order Comment: Speci men Type: BLOOD SPECIMENOrdering Facility: [facility] Address: [address] [place] [address] Performed By: #### 5 7021-8 ####[facility] LABCLIA [id number] [place] [id number] [facility] LABCLIA [id number] [place] [address] Differential cell count method Nom (Bld) Manual Normal [facility] Comment on above: Order Comment: Speci men Type: BLOOD SPECIMENOrdering Facility: [facility] Address: [address] [place] [address] Performed By: #### 5 7021-8 ####[facility] LABCLIA [id number] [address] LABCLIA [id number] [place] [address] Eosinophils (Bld) [#/Vol] 0.09 10*3/uL Normal <0.46 [facility] Comment on above: Order Comment: Speci men Type: BLOOD SPECIMENOrdering Facility: [facility] Address: [address] [place] [address] Performed By: #### 5 7021-8 ####[facility] LABCLIA [id number] [address] LABCLIA [id number] [place] [address] Eosinophils/100 WBC (Bld) 3.0 % Normal [facility] Comment on above: Order Comment: Speci men Type: BLOOD SPECIMENOrdering Facility: [facility] Address: [address] [place] [address] Performed By: #### 5 7021-8 ####[facility] LABCLIA [id number] [address] LABCLIA [id number] [place] [address] Erythrocyte distribution width (RBC) [Ratio] 21.2 % High 11.5-15.0 [facility] Comment on above: Order Comment: Speci men Type: BLOOD SPECIMENOrdering Facility: [facility] Address: [address] [place] [address] Performed By: #### 5 7021-8 ####[facility] LABCLIA [id number] [address] LABCLIA [id number] [place] [address] Hematocrit (Bld) [Volume fraction] 24.0 % Low 39.0-51.0 [facility] Comment on above: Order Comment: Speci men Type: BLOOD SPECIMENOrdering Facility: [facility] Address: [address] [place] [address] Performed By: #### 5 7021-8 ####[facility] LABCLIA [id number] [address] LABCLIA [id number] [place] [address] Hemoglobin (Bld) [Mass/Vol] 7.6 g/dL Low 13.0-17.0 [facility] Comment on above: Order Comment: Speci men Type: BLOOD SPECIMENOrdering Facility: [facility] Address: [address] [place] [address] Performed By: #### 5 7021-8 ####[facility] LABCLIA [id number] [address] LABCLIA [id number] [place] [address] Lymphocytes (Bld) [#/Vol] 1.31 10*3/uL Normal 1.00-4.00 [facility] Comment on above: Order Comment: Speci men Type: BLOOD SPECIMENOrdering Facility: [facility] Address: [address] [place] [address] Performed By: #### 5 7021-8 ####[facility] LABCLIA [id number] [address] LABCLIA [id number] [place] [address] Lymphocytes/100 WBC (Bld) 45.0 % Normal [facility] Comment on above: Order Comment: Speci men Type: BLOOD SPECIMENOrdering Facility: [facility] Address: [address] [place] [address] Performed By: #### 5 7021-8 ####[facility] LABCLIA [id number] [address] LABCLIA [id number] [place] [address] MCH (RBC) [Entitic mass] 31.7 pg Normal 26.0-34.0 [facility] Comment on above: Order Comment: Speci men Type: BLOOD SPECIMENOrdering Facility: [facility] Address: [address] [place] [address] Performed By: #### 5 7021-8 ####[facility] LABCLIA [id number] [address] LABCLIA [id number] [place] [address] MCHC (RBC) [Mass/Vol] 31.7 g/dL Normal 30.5-36.0 [facility] Comment on above: Order Comment: Speci men Type: BLOOD SPECIMENOrdering Facility: [facility] Address: [address] [place] [address] Performed By: #### 5 7021-8 ####[facility] LABCLIA [id number] [address] LABCLIA [id number] [place] [address] MCV (RBC) [Entitic vol] 100.0 fL Normal 80.0-100.0 [facility] Comment on above: Order Comment: Speci men Type: BLOOD SPECIMENOrdering Facility: [facility] Address: [address] [place] [address] Performed By: #### 5 7021-8 ####[facility] LABCLIA [id number] [address] LABCLIA [id number] [place] [address] Monocytes (Bld) [#/Vol] 0.41 10*3/uL Normal <0.87 [facility] Comment on above: Order Comment: Speci men Type: BLOOD SPECIMENOrdering Facility: [facility] Address: [address] [place] [address] Performed By: #### 5 7021-8 ####[facility] LABCLIA [id number] [address] LABCLIA [id number] [place] [address] Monocytes/100 WBC (Bld) 14.0 % Normal [facility] Comment on above: Order Comment: Speci men Type: BLOOD SPECIMENOrdering Facility: [facility] Address: [address] [place] [address] Performed By: #### 5 7021-8 ####[facility] LABCLIA [id number] [address] LABCLIA [id number] [place] [address] MYELO% 9.0 % Normal [facility] Comment on above: Order Comment: Speci men Type: BLOOD SPECIMENOrdering Facility: [facility] Address: [address] [place] [address] Performed By: #### 5 7021-8 ####[facility] LABCLIA [id number] [address] LABCLIA [id number] [place] [address] Neutrophils (Bld) [#/Vol] 0.84 10*3/uL Low 1.45-7.50 [facility] Comment on above: Order Comment: Speci men Type: BLOOD SPECIMENOrdering Facility: [facility] Address: [address] [place] [address] Performed By: #### 5 7021-8 ####[facility] LABCLIA [id number] [address] LABCLIA [id number] [place] [address] Neutrophils/100 WBC (Bld) 29.0 % Normal [facility] Comment on above: Order Comment: Speci men Type: BLOOD SPECIMENOrdering Facility: [facility] Address: [address] [place] [address] Performed By: #### 5 7021-8 ####[facility] LABCLIA [id number] [address] LABCLIA [id number] [place] [address] Nucleated RBC (Bld) [#/Vol] 10*3/uL Normal <0.01 [facility] Comment on above: Order Comment: Speci men Type: BLOOD SPECIMENOrdering Facility: [facility] Address: [address] [place], [place] [address] Performed By: #### 5 7021-8 ####[facility] LABCLIA [id number] [address] LABCLIA [id number] [place] [address] Nucleated RBC/100 WBC (Bld) [Ratio] 0.0 /100 WBC Normal [facility] Comment on above: Order Comment: Speci men Type: BLOOD SPECIMENOrdering Facility: [facility] Address: [address] [place] [address] Performed By: #### 5 7021-8 ####[facility] LABCLIA [id number] [address] LABCLIA [id number] [place] [address] Ovalocytes LM Ql (Bld) Few Normal [facility] Comment on above: Order Comment: Speci men Type: BLOOD SPECIMENOrdering Facility: [facility] Address: [address] Performed By: #### 5 7021-8 ####[facility] LABCLIA [id number] [address] LABCLIA [id number] [place] [address] Platelet mean volume (Bld) [Entitic vol] Normal [facility] Comment on above: Order Comment: Speci men Type: BLOOD SPECIMENOrdering Facility: [facility] Address: [address] [place] [address] Result Comment: Unab le to Report. Performed By: #### 5 7021-8 ####[facility] LABCLIA [id number] [address] LABCLIA [id number] [place] [address] Platelets (Bld) [#/Vol] 67 10*3/uL Low 150-400 [facility] Comment on above: Order Comment: Speci men Type: BLOOD SPECIMENOrdering Facility: [facility] Address: [address] Result Comment: Resu lts checked and verified.No clot detected. Performed By: #### 5 7021-8 ####[facility] LABCLIA [id number] [address] LABCLIA [id number] [place] [address] Platelets Estimate (Bld) [#/Vol] Decreased Normal [facility] Comment on above: Order Comment: Speci men Type: BLOOD SPECIMENOrdering Facility: [facility] Address: [address] [place] [address] Performed By: #### 5 7021-8 ####[facility] LABCLIA [id number] [address] LABCLIA [id number] [place] [address] Polychromasia LM Ql (Bld) Slight Normal [facility] Comment on above: Order Comment: Speci men Type: BLOOD SPECIMENOrdering Facility: [facility] Address: [address] [place] [address] Performed By: #### 5 7021-8 ####[facility] LABCLIA [id number] [address] LABCLIA [id number] [place] [address] RBC (Bld) [#/Vol] 2.40 10*6/uL Low 4.20-6.00 [facility] Comment on above: Order Comment: Speci men Type: BLOOD SPECIMENOrdering Facility: [facility] Address: [address] [place], [place] [address] Performed By: #### 5 7021-8 ####[facility] LABCLIA [id number] [address] LABCLIA [id number] [place] [address] RED CELL MORPH Reviewed: see result s of individual morphologies Normal [facility] Comment on above: Order Comment: Speci men Type: BLOOD SPECIMENOrdering Facility: [facility] Address: [address] [place], [place] [address] Performed By: #### 5 7021-8 ####[facility] LABCLIA [id number] [address] LABCLIA [id number] [place] [address] WBC (Bld) [#/Vol] 2.90 10*3/uL Low 3.70-11.00 [facility] Comment on above: Order Comment: Speci men Type: BLOOD SPECIMENOrdering Facility: [facility] Address: [address] Result Comment: Resu lts checked and verified.No clot detected. Performed By: #### 5 7021-8 ####[facility] LABCLIA [id number] [address] LABCLIA [id number] [place] [address] WBC Left Shift Ql (Bld) Present Normal [facility] Comment on above: Order Comment: Speci men Type: BLOOD SPECIMENOrdering Facility: [facility] Address: [address] [place] [address] Performed By: #### 5 7021-8 ####[facility] LABCLIA [id number] [address] LABCLIA [id number] [place] [address] CNOVSPon 10-09-2022 CNOVSP Normal [facility] Comprehensive metabolic 2000 panelon 10-09-2022 Albumin [Mass/Vol] 3.7 g/dL Low 3.9-4.9 [facility] Comment on above: Order Comment: Speci men Type: BLOOD SPECIMENOrdering Facility: [facility] Address: [address] [place] [address] Performed By: #### 2 4323-8 ####[facility] LABCLIA [id number] [place] [address] [place] ALP [Catalytic activity/Vol] 154 U/L High 38-113 [facility] Comment on above: Order Comment: Speci men Type: BLOOD SPECIMENOrdering Facility: [facility] Address: [address] Performed By: #### 2 4323-8 ####[facility] LABCLIA [id number] [place] [address] [place] ALT [Catalytic activity/Vol] 78 U/L High 10-54 [facility] Comment on above: Order Comment: Speci men Type: BLOOD SPECIMENOrdering Facility: [facility] Address: [address] [place], [place] [address] Performed By: #### 2 4323-8 ####[facility] LABCLIA [id number] [place] [address] [place] Anion gap [Moles/Vol] 11 mmol/L Normal 9-18 [facility] Comment on above: Order Comment: Speci men Type: BLOOD SPECIMENOrdering Facility: [facility] Address: [address] [place], [place] [address] Performed By: #### 2 4323-8 ####[facility] LABCLIA [id number] [place] [address] [place] AST [Catalytic activity/Vol] 45 U/L High 14-40 [facility] Comment on above: Order Comment: Speci men Type: BLOOD SPECIMENOrdering Facility: [facility] Address: [address] Performed By: #### 2 4323-8 ####[facility] LABCLIA [id number] [place] [address] [place] Bilirubin [Mass/Vol] 0.7 mg/dL Normal 0.2-1.3 [facility] Comment on above: Order Comment: Speci men Type: BLOOD SPECIMENOrdering Facility: [facility] Address: [address] [place], [place] [address] Performed By: #### 2 4323-8 ####[facility] LABCLIA [id number] [place] [address] [place] Calcium [Mass/Vol] 9.4 mg/dL Normal 8.5-10.2 [facility] Comment on above: Order Comment: Speci men Type: BLOOD SPECIMENOrdering Facility: [facility] Address: [address] Performed By: #### 2 4323-8 ####[facility] LABCLIA [id number] [place] [address] [place] Chloride [Moles/Vol] 102 mmol/L Normal 97-105 [facility] Comment on above: Order Comment: Speci men Type: BLOOD SPECIMENOrdering Facility: [facility] Address: [address] [place], [place] [address] Performed By: #### 2 4323-8 ####[facility] LABCLIA [id number] [place] [address] [place] CO2 [Moles/Vol] 30 mmol/L Normal 22-30 [facility] Comment on above: Order Comment: Speci men Type: BLOOD SPECIMENOrdering Facility: [facility] Address: [address] [place], [place] [address] Performed By: #### 2 4323-8 ####[facility] LABCLIA [id number] [place] [address] [place] Creatinine [Mass/Vol] 1.38 mg/dL High 0.73-1.22 [facility] Comment on above: Order Comment: Speci men Type: BLOOD SPECIMENOrdering Facility: [facility] Address: [address] [place], [place] [address] Performed By: #### 2 4323-8 ####[facility] LABCLIA [id number] [place] [address] [place] ESTIMATED GLOMERULAR FILTRATION RATE 51 mL/min/1.73m??? Low >=60 [facility] Comment on above: Order Comment: Davi avendaño Type: BLOOD SPECIMENOrdering Facility: [facility] Address: [address] [place] [address] Result Comment: Faye mated Glomerular Filtration Rate [...] actual GFR. Performed By: #### 2 4323-8 ####[facility] LABIA [id number] [place] [address] [place] Glucose [Mass/Vol] 163 mg/dL High 74-99 [facility] Comment on above: Order Comment: Davi avendaño Type: BLOOD SPECIMENOrdering Facility: [facility] Address: [address] [place] [address] Result Comment: The [place] [employer] (ADA) provides guidance for cutoff [...] Standards of Medical Care in Diabetes 2016, [place] [employer]. Diabetes Care. 2016.39(Suppl 1). Performed By: #### 2 4323-8 ####[facility] LABIA [id number] [place] [address] [place] Potassium [Moles/Vol] 4.7 mmol/L Normal 3.7-5.1 [facility] Comment on above: Order Comment: Speci men Type: BLOOD SPECIMENOrdering Facility: [facility] Address: [address] [place] [address] Performed By: #### 2 4323-8 ####[facility] LABCLIA [id number] [place] [address] [place] Protein [Mass/Vol] 7.0 g/dL Normal 6.3-8.0 [facility] Comment on above: Order Comment: Speci men Type: BLOOD SPECIMENOrdering Facility: [facility] Address: [address] [place] [address] Performed By: #### 2 4323-8 ####[facility] LABCLIA [id number] [place] [address] [place] Sodium [Moles/Vol] 143 mmol/L Normal 136-144 [facility] Comment on above: Order Comment: Speci men Type: BLOOD SPECIMENOrdering Facility: [facility] Address: [address] [place] [address] Performed By: #### 2 4323-8 ####[facility] LABCLIA [id number] [place] [address] [place] Urea nitrogen [Mass/Vol] 24 mg/dL Normal 9-24 [facility] Comment on above: Order Comment: Speci men Type: BLOOD SPECIMENOrdering Facility: [facility] Address: [address] [place], [place] [address] Performed By: #### 2 4323-8 ####[facility] LABCLIA [id number] [place] [address] [place] CBC W Auto Differential pane l (Bld)on 10-02-2022 Anisocytosis Ql (Bld) Present Normal [facility] Comment on above: Order Comment: Speci men Type: BLOOD SPECIMENOrdering Facility: [facility] Address: [address] [place] [address] Performed By: #### 5 7021-8 ####[facility] LABCLIA [id number] [address] LABCLIA [id number] [place] [address] Basophils (Bld) [#/Vol] 0.05 10*3/uL Normal <0.11 [facility] Comment on above: Order Comment: Speci men Type: BLOOD SPECIMENOrdering Facility: [facility] Address: [address] [place] [address] Performed By: #### 5 7021-8 ####[facility] LABCLIA [id number] [address] LABCLIA [id number] [place] [address] Basophils/100 WBC (Bld) 2.0 % Normal [facility] Comment on above: Order Comment: Speci men Type: BLOOD SPECIMENOrdering Facility: [facility] Address: [address] [place] [address] Performed By: #### 5 7021-8 ####[facility] LABCLIA [id number] [address] LABCLIA [id number] [place] [address] Differential cell count method Nom (Bld) Manual Normal [facility] Comment on above: Order Comment: Speci men Type: BLOOD SPECIMENOrdering Facility: [facility] Address: [address] [place], [place] [address] Performed By: #### 5 7021-8 ####[facility] LABCLIA [id number] [address] LABCLIA [id number] [place] [address] Eosinophils (Bld) [#/Vol] 0.00 10*3/uL Normal <0.46 [facility] Comment on above: Order Comment: Speci men Type: BLOOD SPECIMENOrdering Facility: [facility] Address: [address] [place] [address] Performed By: #### 5 7021-8 ####[facility] LABCLIA [id number] [address] LABCLIA [id number] [place] [address] Eosinophils/100 WBC (Bld) 0.0 % Normal [facility] Comment on above: Order Comment: Speci men Type: BLOOD SPECIMENOrdering Facility: [facility] Address: [address] [place] [address] Performed By: #### 5 7021-8 ####[facility] LABCLIA [id number] [address] LABCLIA [id number] [place] [address] Erythrocyte distribution width (RBC) [Ratio] 18.1 % High 11.5-15.0 [facility] Comment on above: Order Comment: Speci men Type: BLOOD SPECIMENOrdering Facility: [facility] Address: [address] [place] [address] Performed By: #### 5 7021-8 ####[facility] LABCLIA [id number] [address] LABCLIA [id number] [place] [address] Giant platelets LM Ql (Bld) Occasional Normal [facility] Comment on above: Order Comment: Speci men Type: BLOOD SPECIMENOrdering Facility: [facility] Address: [address] [place] [address] Performed By: #### 5 7021-8 ####[facility] LABCLIA [id number] [address] LABCLIA [id number] [place] [address] Hematocrit (Bld) [Volume fraction] 24.4 % Low 39.0-51.0 [facility] Comment on above: Order Comment: Speci men Type: BLOOD SPECIMENOrdering Facility: [facility] Address: [address] [place] [address] Performed By: #### 5 7021-8 ####[facility] LABCLIA [id number] [address] LABCLIA [id number] [place] [address] Hemoglobin (Bld) [Mass/Vol] 7.8 g/dL Low 13.0-17.0 [facility] Comment on above: Order Comment: Speci men Type: BLOOD SPECIMENOrdering Facility: [facility] Address: [address] [place] [address] Performed By: #### 5 7021-8 ####[facility] LABCLIA [id number] [address] LABCLIA [id number] [place] [address] Lymphocytes (Bld) [#/Vol] 1.15 10*3/uL Normal 1.00-4.00 [facility] Comment on above: Order Comment: Speci men Type: BLOOD SPECIMENOrdering Facility: [facility] Address: [address] [place] [address] Performed By: #### 5 7021-8 ####[facility] LABCLIA [id number] [address] LABCLIA [id number] [place] [address] Lymphocytes/100 WBC (Bld) 42.0 % Normal [facility] Comment on above: Order Comment: Speci men Type: BLOOD SPECIMENOrdering Facility: [facility] Address: [address] Performed By: #### 5 7021-8 ####[facility] LABCLIA [id number] [address] LABCLIA [id number] [place] [address] MCH (RBC) [Entitic mass] 32.8 pg Normal 26.0-34.0 [facility] Comment on above: Order Comment: Speci men Type: BLOOD SPECIMENOrdering Facility: [facility] Address: [address] [place] [address] Performed By: #### 5 7021-8 ####[facility] LABCLIA [id number] [address] LABCLIA [id number] [place] [address] MCHC (RBC) [Mass/Vol] 32.0 g/dL Normal 30.5-36.0 [facility] Comment on above: Order Comment: Speci men Type: BLOOD SPECIMENOrdering Facility: [facility] Address: [address] [place] [address] Performed By: #### 5 7021-8 ####[facility] LABCLIA [id number] [address] LABCLIA [id number] [place] [address] MCV (RBC) [Entitic vol] 102.5 fL High 80.0-100.0 [facility] Comment on above: Order Comment: Speci men Type: BLOOD SPECIMENOrdering Facility: [facility] Address: [address] [place], [place] [address] Performed By: #### 5 7021-8 ####[facility] LABCLIA [id number] [address] LABCLIA [id number] [place] [address] Metamyelocytes/100 WBC (Bld) 4.0 % Normal [facility] Comment on above: Order Comment: Speci men Type: BLOOD SPECIMENOrdering Facility: [facility] Address: [address] [place] [address] Performed By: #### 5 7021-8 ####[facility] LABCLIA [id number] [address] LABCLIA [id number] [place] [address] Monocytes (Bld) [#/Vol] 0.41 10*3/uL Normal <0.87 [facility] Comment on above: Order Comment: Speci men Type: BLOOD SPECIMENOrdering Facility: [facility] Address: [address] [place] [address] Performed By: #### 5 7021-8 ####[facility] LABCLIA [id number] [address] LABCLIA [id number] [place] [address] Monocytes/100 WBC (Bld) 15.0 % Normal [facility] Comment on above: Order Comment: Speci men Type: BLOOD SPECIMENOrdering Facility: [facility] Address: [address] [place], [place] [address] Performed By: #### 5 7021-8 ####[facility] LABCLIA [id number] [address] LABCLIA [id number] [place] [address] MYELO% 6.0 % Normal [facility] Comment on above: Order Comment: Speci men Type: BLOOD SPECIMENOrdering Facility: [facility] Address: [address] [place], [place] [address] Performed By: #### 5 7021-8 ####[facility] LABCLIA [id number] [address] LABCLIA [id number] [place] [address] Neutrophils (Bld) [#/Vol] 0.85 10*3/uL Low 1.45-7.50 [facility] Comment on above: Order Comment: Speci men Type: BLOOD SPECIMENOrdering Facility: [facility] Address: [address] [address] Performed By: #### 5 7021-8 ####[facility] LABCLIA [id number] [address] LABCLIA [id number] [place] [address] Neutrophils/100 WBC (Bld) 31.0 % Normal [facility] Comment on above: Order Comment: Speci men Type: BLOOD SPECIMENOrdering Facility: [facility] Address: [address] [address] Performed By: #### 5 7021-8 ####[facility] LABCLIA [id number] [address] LABCLIA [id number] [place] [address] Nucleated RBC (Bld) [#/Vol] 10*3/uL Normal <0.01 [facility] Comment on above: Order Comment: Speci men Type: BLOOD SPECIMENOrdering Facility: [facility] Address: [address] [place] [address] Performed By: #### 5 7021-8 ####[facility] LABCLIA [id number] [address] LABCLIA [id number] [place] [address] Nucleated RBC/100 WBC (Bld) [Ratio] 0.0 /100 WBC Normal [facility] Comment on above: Order Comment: Speci men Type: BLOOD SPECIMENOrdering Facility: [facility] Address: [address] [place] [address] Performed By: #### 5 7021-8 ####[facility] LABCLIA [id number] [address] LABCLIA [id number] [place] [address] Ovalocytes LM Ql (Bld) Few Normal [facility] Comment on above: Order Comment: Speci men Type: BLOOD SPECIMENOrdering Facility: [facility] Address: [address] [place] [address] Performed By: #### 5 7021-8 ####[facility] LABCLIA [id number] [address] LABCLIA [id number] [place] [address] Platelet mean volume (Bld) [Entitic vol] Normal [facility] Comment on above: Order Comment: Speci men Type: BLOOD SPECIMENOrdering Facility: [facility] Address: [address] [place] [address] Result Comment: Unab le to report Performed By: #### 5 7021-8 ####[facility] LABCLIA [id number] [address] LABCLIA [id number] [place] [address] Platelets (Bld) [#/Vol] 64 10*3/uL Low 150-400 [facility] Comment on above: Order Comment: Speci men Type: BLOOD SPECIMENOrdering Facility: [facility] Address: [address] [place] [address] Result Comment: No c lot detected. Result rechecked. Performed By: #### 5 7021-8 ####[facility] LABCLIA [id number] [address] LABCLIA [id number] [place] [address] Platelets Estimate (Bld) [#/Vol] Decreased Normal [facility] Comment on above: Order Comment: Speci men Type: BLOOD SPECIMENOrdering Facility: [facility] Address: [address] [address] Performed By: #### 5 7021-8 ####[facility] LABCLIA [id number] [address] LABCLIA [id number] [place] [address] RBC (Bld) [#/Vol] 2.38 10*6/uL Low 4.20-6.00 [facility] Comment on above: Order Comment: Speci men Type: BLOOD SPECIMENOrdering Facility: [facility] Address: [address] [place] [address] Performed By: #### 5 7021-8 ####[facility] LABCLIA [id number] [address] LABCLIA [id number] [place] [address] RED CELL MORPH Reviewed: see result s of individual morphologies Normal [facility] Comment on above: Order Comment: Speci men Type: BLOOD SPECIMENOrdering Facility: [facility] Address: [address] [place] [address] Performed By: #### 5 7021-8 ####[facility] LABCLIA [id number] [address] LABCLIA [id number] [place] [address] WBC (Bld) [#/Vol] 2.74 10*3/uL Low 3.70-11.00 [facility] Comment on above: Order Comment: Speci men Type: BLOOD SPECIMENOrdering Facility: [facility] Address: [address] [place] [address] Performed By: #### 5 7021-8 ####[facility] LABCLIA [id number] [address] LABCLIA [id number] [place] [address] WBC Left Shift Ql (Bld) Present Normal [facility] Comment on above: Order Comment: Speci men Type: BLOOD SPECIMENOrdering Facility: [facility] Address: [address] [place] [address] Performed By: #### 5 7021-8 ####[facility] LABCLIA [id number] [address] LABCLIA [id number] [place] [address] CNPNon 10-02-2022 CNPN Normal [facility] Comprehensive metabolic 2000 panelon 10-02-2022 Albumin [Mass/Vol] 3.8 g/dL Low 3.9-4.9 [facility] Comment on above: Order Comment: Speci men Type: BLOOD SPECIMENOrdering Facility: [facility] Address: [address] [place], [place] [address] Performed By: #### 2 4323-8 ####[facility] LABCLIA [id number] [place] [address] ALP [Catalytic activity/Vol] 155 U/L High 38-113 [facility] Comment on above: Order Comment: Speci men Type: BLOOD SPECIMENOrdering Facility: [facility] Address: [address] [place] [address] Performed By: #### 2 4323-8 ####[facility] LABCLIA [id number] [place] [address] ALT [Catalytic activity/Vol] 62 U/L High 10-54 [facility] Comment on above: Order Comment: Speci men Type: BLOOD SPECIMENOrdering Facility: [facility] Address: [address] [place] [address] Performed By: #### 2 4323-8 ####[facility] LABCLIA [id number] [place] [address] Anion gap [Moles/Vol] 9 mmol/L Normal 9-18 [facility] Comment on above: Order Comment: Speci men Type: BLOOD SPECIMENOrdering Facility: [facility] Address: [address] [place] [address] Performed By: #### 2 4323-8 ####[facility] LABCLIA [id number] [place] [address] AST [Catalytic activity/Vol] 40 U/L Normal 14-40 [facility] Comment on above: Order Comment: Speci men Type: BLOOD SPECIMENOrdering Facility: [facility] Address: [address] [place] [address] Performed By: #### 2 4323-8 ####[facility] LABCLIA [id number] [place] [address] Bilirubin [Mass/Vol] 0.9 mg/dL Normal 0.2-1.3 [facility] Comment on above: Order Comment: Speci men Type: BLOOD SPECIMENOrdering Facility: [facility] Address: [address] [address] Performed By: #### 2 4323-8 ####[facility] LABCLIA [id number] [place] [address] Calcium [Mass/Vol] 9.2 mg/dL Normal 8.5-10.2 [facility] Comment on above: Order Comment: Speci men Type: BLOOD SPECIMENOrdering Facility: [facility] Address: [address] [place] [address] Performed By: #### 2 4323-8 ####[facility] LABCLIA [id number] [place] [address] Chloride [Moles/Vol] 99 mmol/L Normal 97-105 [facility] Comment on above: Order Comment: Speci men Type: BLOOD SPECIMENOrdering Facility: [facility] Address: [address] [place] [address] Performed By: #### 2 4323-8 ####[facility] LABCLIA [id number] [place] [address] CO2 [Moles/Vol] 33 mmol/L High 22-30 [facility] Comment on above: Order Comment: Speci men Type: BLOOD SPECIMENOrdering Facility: [facility] Address: [address] [place] [address] Performed By: #### 2 4323-8 ####[facility] LABCLIA [id number] [place] [address] Creatinine [Mass/Vol] 1.47 mg/dL High 0.73-1.22 [facility] Comment on above: Order Comment: Speci men Type: BLOOD SPECIMENOrdering Facility: [facility] Address: [address] [place] [address] Performed By: #### 2 4323-8 ####[facility] LABCLIA [id number] [place] [address] ESTIMATED GLOMERULAR FILTRATION RATE 47 mL/min/1.73m??? Low >=60 [facility] Comment on above: Order Comment: Speci men Type: BLOOD SPECIMENOrdering Facility: [facility] Address: [address] [place] [address] Result Comment: Faye mated Glomerular Filtration Rate [...] actual GFR. Performed By: #### 2 4323-8 ####[facility] LABIA [id number] [place] [address] Glucose [Mass/Vol] 158 mg/dL High 74-99 [facility] Comment on above: Order Comment: Speci men Type: BLOOD SPECIMENOrdering Facility: [facility] Address: [address] [place] [address] Result Comment: The [place] [employer] (ADA) provides guidance for cutoff [...] Standards of Medical Care in Diabetes 2016, [place] [employer]. Diabetes Care. 2016.39(Suppl 1). Performed By: #### 2 4323-8 ####[facility] LABIA [id number] [place] [address] Potassium [Moles/Vol] 3.9 mmol/L Normal 3.7-5.1 [facility] Comment on above: Order Comment: Speci men Type: BLOOD SPECIMENOrdering Facility: [facility] Address: [address] [address] Performed By: #### 2 4323-8 ####[facility] LABCLIA [id number] [place] [address] Protein [Mass/Vol] 6.8 g/dL Normal 6.3-8.0 [facility] Comment on above: Order Comment: Cristinai men Type: BLOOD SPECIMENOrdering Facility: [facility] Address: [address] [place] [address] Performed By: #### 2 4323-8 ####[facility] LABCLIA [id number] [place] [address] Sodium [Moles/Vol] 141 mmol/L Normal 136-144 [facility] Comment on above: Order Comment: Speci men Type: BLOOD SPECIMENOrdering Facility: [facility] Address: [address] [place] [address] Performed By: #### 2 4323-8 ####[facility] LABCLIA [id number] [place] [address] Urea nitrogen [Mass/Vol] 30 mg/dL High 9-24 [facility] Comment on above: Order Comment: Speci men Type: BLOOD SPECIMENOrdering Facility: [facility] Address: [address] [place] [address] Performed By: #### 2 4323-8 ####[facility] LABCLIA [id number] [place] [address] HEMOGLOBIN AND HEMATOCRITon 10-02-2022 Hematocrit (Bld) [Volume fraction] 24.6 % Critically low 42.0-54.0 [facility] Comment on above: Performed By: #### H GBHCT #### [facility] [address] [place] [address] Dr. Benito To Hemoglobin (Bld) [Mass/Vol] 7.9 g/dL Critically low 14.0-18.0 [facility] Comment on above: Performed By: #### H GBHCT #### [facility] [address] [place] [address] Dr. Benito To TYPE AND SCREENon 10-02-2022 TYPE AND SCREEN Negative Normal [facility] Comment on above: Performed By: #### T NS, PRBC #### [facility] [address] [place] [address] Dr. Benito To PRBC LEUKOREDUCEDon 10-02-19 ABO and Rh group Nom (Bld) Cross Match Result Compatible Unit Blood Type A Pos Unit Number [id number] Status Information Transfused Product ID Red Blood Cells Product Code [id number] Cross Match Result Compatible Unit Blood Type A Pos Unit Number [id number] Status Information Transfused Product ID Red Blood Cells Product Code [id number] [facility] Comment on above: Performed By: #### T NS, PRBC #### [facility] [address] [place] [address] Dr. Benito To ABO and Rh group Nom (Bld) Cross Match Result Compatible Unit Blood Type A Pos Unit Number [id number] Status Information Transfused Product ID Red Blood Cells Product Code [id number] Cross Match Result Compatible Unit Blood Type A Pos Unit Number [id number] Status Information Transfused Product ID Red Blood Cells Product Code [id number] [facility] Comment on above: Performed By: #### P RBC, TNS #### [facility] [address] [place] [address] Dr. Benito To ABO and Rh group Nom (Bld) Cross Match Result Compatible Unit Blood Type A Pos Unit Number [id number] Status Information Released Specimen Exp Date Product ID Red Blood Cells Product Code [id number] Cross Match Result Compatible Unit Blood Type A Pos Unit Number [id number] Status Information Transfused Product ID Red Blood Cells Product Code [id number] [facility] Comment on above: Performed By: #### P RBC, TNS #### [facility] [address] [place] [address] Dr. Benito To PRBC LEUKOREDUCED Cross Match Result Compatible Unit Blood Type O Neg Unit Number [id number] Status Information Transfused Product ID Red Blood Cells Product Code [id number] [facility] Comment on above: Performed By: #### P RBC, TNS #### [facility] [address] [address] [address] Benito To CBC W Auto Differential pane l (Bld)on 09-25-2022 Anisocytosis Ql (Bld) Present Normal [facility] Comment on above: Order Comment: Speci men Type: BLOOD SPECIMENOrdering Facility: [facility] Address: [address] [place] [address] Performed By: #### 5 7021-8 ####[facility] LABCLIA [id number] [address] LABCLIA [id number] [place] [address] Basophils (Bld) [#/Vol] 0.00 10*3/uL Normal <0.11 [facility] Comment on above: Order Comment: Speci men Type: BLOOD SPECIMENOrdering Facility: [facility] Address: [address] [place] [address] Performed By: #### 5 7021-8 ####[facility] LABCLIA [id number] [address] LABCLIA [id number] [place] [address] Basophils/100 WBC (Bld) 0.0 % Normal [facility] Comment on above: Order Comment: Speci men Type: BLOOD SPECIMENOrdering Facility: [facility] Address: [address] [place] [address] Performed By: #### 5 7021-8 ####[facility] LABCLIA [id number] [address] LABCLIA [id number] [place] [address] Differential cell count method Nom (Bld) Manual Normal [facility] Comment on above: Order Comment: Speci men Type: BLOOD SPECIMENOrdering Facility: [facility] Address: [address] [place], [place] [address] Performed By: #### 5 7021-8 ####[facility] LABCLIA [id number] [address] LABCLIA [id number] [place] [address] Eosinophils (Bld) [#/Vol] 0.00 10*3/uL Normal <0.46 [facility] Comment on above: Order Comment: Speci men Type: BLOOD SPECIMENOrdering Facility: [facility] Address: [address] [place] [address] Performed By: #### 5 7021-8 ####[facility] LABCLIA [id number] [address] LABCLIA [id number] [place] [address] Eosinophils/100 WBC (Bld) 0.0 % Normal [facility] Comment on above: Order Comment: Speci men Type: BLOOD SPECIMENOrdering Facility: [facility] Address: [address] [place] [address] Performed By: #### 5 7021-8 ####[facility] LABCLIA [id number] [address] LABCLIA [id number] [place] [address] Erythrocyte distribution width (RBC) [Ratio] 18.6 % High 11.5-15.0 [facility] Comment on above: Order Comment: Speci men Type: BLOOD SPECIMENOrdering Facility: [facility] Address: [address] [place] [address] Performed By: #### 5 7021-8 ####[facility] LABCLIA [id number] [address] LABCLIA [id number] [place] [address] Hematocrit (Bld) [Volume fraction] 21.7 % Low 39.0-51.0 [facility] Comment on above: Order Comment: Speci men Type: BLOOD SPECIMENOrdering Facility: [facility] Address: [address] [place] [address] Performed By: #### 5 7021-8 ####[facility] LABCLIA [id number] [address] LABCLIA [id number] [place] [address] Hemoglobin (Bld) [Mass/Vol] 6.9 g/dL Low 13.0-17.0 [facility] Comment on above: Order Comment: Speci men Type: BLOOD SPECIMENOrdering Facility: [facility] Address: [address] [place] [address] Performed By: #### 5 7021-8 ####[facility] LABCLIA [id number] [address] LABCLIA [id number] [place] [address] Lymphocytes (Bld) [#/Vol] 1.20 10*3/uL Normal 1.00-4.00 [facility] Comment on above: Order Comment: Speci men Type: BLOOD SPECIMENOrdering Facility: [facility] Address: [address] [place] [address] Performed By: #### 5 7021-8 ####[facility] LABCLIA [id number] [address] LABCLIA [id number] [place] [address] Lymphocytes/100 WBC (Bld) 32.0 % Normal [facility] Comment on above: Order Comment: Speci men Type: BLOOD SPECIMENOrdering Facility: [facility] Address: [address] [place], [place] [address] Performed By: #### 5 7021-8 ####[facility] LABCLIA [id number] [address] LABCLIA [id number] [place] [address] MCH (RBC) [Entitic mass] 32.1 pg Normal 26.0-34.0 [facility] Comment on above: Order Comment: Speci men Type: BLOOD SPECIMENOrdering Facility: [facility] Address: [address] [place] [address] Performed By: #### 5 7021-8 ####[facility] LABCLIA [id number] [address] LABCLIA [id number] [place] [address] MCHC (RBC) [Mass/Vol] 31.8 g/dL Normal 30.5-36.0 [facility] Comment on above: Order Comment: Speci men Type: BLOOD SPECIMENOrdering Facility: [facility] Address: [address] [place] [address] Performed By: #### 5 7021-8 ####[facility] LABCLIA [id number] [address] LABCLIA [id number] [place] [address] MCV (RBC) [Entitic vol] 100.9 fL High 80.0-100.0 [facility] Comment on above: Order Comment: Speci men Type: BLOOD SPECIMENOrdering Facility: [facility] Address: [address] [place] [address] Performed By: #### 5 7021-8 ####[facility] LABCLIA [id number] [address] LABCLIA [id number] [place] [address] Metamyelocytes/100 WBC (Bld) 1.0 % Normal [facility] Comment on above: Order Comment: Speci men Type: BLOOD SPECIMENOrdering Facility: [facility] Address: [address] [place] [address] Performed By: #### 5 7021-8 ####[facility] LABCLIA [id number] [address] LABCLIA [id number] [place] [address] Monocytes (Bld) [#/Vol] 0.41 10*3/uL Normal <0.87 [facility] Comment on above: Order Comment: Speci men Type: BLOOD SPECIMENOrdering Facility: [facility] Address: [address] [place] [address] Performed By: #### 5 7021-8 ####[facility] LABCLIA [id number] [address] LABCLIA [id number] [place] [address] Monocytes/100 WBC (Bld) 11.0 % Normal [facility] Comment on above: Order Comment: Speci men Type: BLOOD SPECIMENOrdering Facility: [facility] Address: [address] [place] [address] Performed By: #### 5 7021-8 ####[facility] LABCLIA [id number] [address] LABCLIA [id number] [place] [address] MYELO% 10.0 % Normal [facility] Comment on above: Order Comment: Speci men Type: BLOOD SPECIMENOrdering Facility: [facility] Address: [address] [place], [place] [address] Performed By: #### 5 7021-8 ####[facility] LABCLIA [id number] [address] LABCLIA [id number] [place] [address] Neutrophils (Bld) [#/Vol] 1.73 10*3/uL Normal 1.45-7.50 [facility] Comment on above: Order Comment: Speci men Type: BLOOD SPECIMENOrdering Facility: [facility] Address: [address] Performed By: #### 5 7021-8 ####[facility] LABCLIA [id number] [address] LABCLIA [id number] [place] [address] Neutrophils/100 WBC (Bld) 46.0 % Normal [facility] Comment on above: Order Comment: Speci men Type: BLOOD SPECIMENOrdering Facility: [facility] Address: [address] [place], [place] [address] Performed By: #### 5 7021-8 ####[facility] LABCLIA [id number] [address] LABCLIA [id number] [place] [address] Nucleated RBC (Bld) [#/Vol] 10*3/uL Normal <0.01 [facility] Comment on above: Order Comment: Speci men Type: BLOOD SPECIMENOrdering Facility: [facility] Address: [address] [place], [place] [address] Performed By: #### 5 7021-8 ####[facility] LABCLIA [id number] [address] LABCLIA [id number] [place] [address] Nucleated RBC/100 WBC (Bld) [Ratio] 0.0 /100 WBC Normal [facility] Comment on above: Order Comment: Speci men Type: BLOOD SPECIMENOrdering Facility: [facility] Address: [address] [place], [place] [address] Performed By: #### 5 7021-8 ####[facility] LABCLIA [id number] [address] LABCLIA [id number] [place] [address] Ovalocytes LM Ql (Bld) Few Normal [facility] Comment on above: Order Comment: Speci men Type: BLOOD SPECIMENOrdering Facility: [facility] Address: [address] [place] [address] Performed By: #### 5 7021-8 ####[facility] LABCLIA [id number] [address] LABCLIA [id number] [place] [address] Platelet mean volume (Bld) [Entitic vol] Normal [facility] Comment on above: Order Comment: Speci men Type: BLOOD SPECIMENOrdering Facility: [facility] Address: [address] [place] [address] Result Comment: Unab le to Report. Performed By: #### 5 7021-8 ####[facility] LABCLIA [id number] [address] LABCLIA [id number] [place] [address] Platelets (Bld) [#/Vol] 71 10*3/uL Low 150-400 [facility] Comment on above: Order Comment: Speci men Type: BLOOD SPECIMENOrdering Facility: [facility] Address: [address] [place] [address] Result Comment: No c lot detected. Checked and Verified Performed By: #### 5 7021-8 ####[facility] LABCLIA [id number] [address] LABCLIA [id number] [place] [address] Platelets Estimate (Bld) [#/Vol] Decreased Normal [facility] Comment on above: Order Comment: Speci men Type: BLOOD SPECIMENOrdering Facility: [facility] Address: [address] [place] [address] Performed By: #### 5 7021-8 ####[facility] LABCLIA [id number] [address] LABCLIA [id number] [place] [address] RBC (Bld) [#/Vol] 2.15 10*6/uL Low 4.20-6.00 [facility] Comment on above: Order Comment: Speci men Type: BLOOD SPECIMENOrdering Facility: [facility] Address: [address] [place] [address] Performed By: #### 5 7021-8 ####[facility] LABCLIA [id number] [address] LABCLIA [id number] [place] [address] RED CELL MORPH Reviewed: see result s of individual morphologies Normal [facility] Comment on above: Order Comment: Speci men Type: BLOOD SPECIMENOrdering Facility: [facility] Address: [address] [place] [address] Performed By: #### 5 7021-8 ####[facility] LABCLIA [id number] [address] LABCLIA [id number] [place] [address] WBC (Bld) [#/Vol] 3.75 10*3/uL Normal 3.70-11.00 [facility] Comment on above: Order Comment: Speci men Type: BLOOD SPECIMENOrdering Facility: [facility] Address: [address] [place], [place] [address] Result Comment: Resu lts checked and verified.No clot detected. Performed By: #### 5 7021-8 ####[facility] LABCLIA [id number] [address] [facility] LABCLIA [id number] [place] [address] WBC Left Shift Ql (Bld) Present Normal [facility] Comment on above: Order Comment: Speci men Type: BLOOD SPECIMENOrdering Facility: [facility] Address: [address] [place] [address] Performed By: #### 5 7021-8 ####[facility] LABCLIA [id number] [facility] [id number] [id number] [facility] LABCLIA [id number] [place] [address] CNPNon 09-25-2022 CNPN Normal [facility] Comprehensive metabolic 2000 panelon 09-25-2022 Albumin [Mass/Vol] 3.7 g/dL Low 3.9-4.9 [facility] Comment on above: Order Comment: Speci men Type: BLOOD SPECIMENOrdering Facility: [facility] Address: [address] [place] [address] Performed By: #### 2 4323-8 ####[facility] LABCLIA [id number] [place] [address] ALP [Catalytic activity/Vol] 159 U/L High 38-113 [facility] Comment on above: Order Comment: Speci men Type: BLOOD SPECIMENOrdering Facility: [facility] Address: [address] [place] [address] Performed By: #### 2 4323-8 ####[facility] LABCLIA [id number] [place] [address] ALT [Catalytic activity/Vol] 59 U/L High 10-54 [facility] Comment on above: Order Comment: Speci men Type: BLOOD SPECIMENOrdering Facility: [facility] Address: [address] [place] [address] Performed By: #### 2 4323-8 ####[facility] LABCLIA [id number] [place] [address] Anion gap [Moles/Vol] 9 mmol/L Normal 9-18 [facility] Comment on above: Order Comment: Speci men Type: BLOOD SPECIMENOrdering Facility: [facility] Address: [address] [address] Performed By: #### 2 4323-8 ####[facility] LABCLIA [id number] [place] [address] AST [Catalytic activity/Vol] 35 U/L Normal 14-40 [facility] Comment on above: Order Comment: Speci men Type: BLOOD SPECIMENOrdering Facility: [facility] Address: [address] [place] [address] Performed By: #### 2 4323-8 ####[facility] LABCLIA [id number] [place] [address] Bilirubin [Mass/Vol] 1.0 mg/dL Normal 0.2-1.3 [facility] Comment on above: Order Comment: Speci men Type: BLOOD SPECIMENOrdering Facility: [facility] Address: [address] [address] Performed By: #### 2 4323-8 ####[facility] LABCLIA [id number] [place] [address] Calcium [Mass/Vol] 9.1 mg/dL Normal 8.5-10.2 [facility] Comment on above: Order Comment: Speci men Type: BLOOD SPECIMENOrdering Facility: [facility] Address: [address] [address] Performed By: #### 2 4323-8 ####[facility] LABCLIA [id number] [place] [address] Chloride [Moles/Vol] 101 mmol/L Normal 97-105 [facility] Comment on above: Order Comment: Speci men Type: BLOOD SPECIMENOrdering Facility: [facility] Address: [address] [place] [address] Performed By: #### 2 4323-8 ####[facility] LABCLIA [id number] [place] [address] CO2 [Moles/Vol] 31 mmol/L High 22-30 [facility] Comment on above: Order Comment: Speci men Type: BLOOD SPECIMENOrdering Facility: [facility] Address: [address] [place] [address] Performed By: #### 2 4323-8 ####[facility] LABCLIA [id number] [place] [address] Creatinine [Mass/Vol] 1.32 mg/dL High 0.73-1.22 [facility] Comment on above: Order Comment: Speci men Type: BLOOD SPECIMENOrdering Facility: [facility] Address: [address] [place] [address] Performed By: #### 2 4323-8 ####[facility] LABCLIA [id number] [place] [address] ESTIMATED GLOMERULAR FILTRATION RATE 54 mL/min/1.73m??? Low >=60 [facility] Comment on above: Order Comment: Speci men Type: BLOOD SPECIMENOrdering Facility: [facility] Address: [address] [place] [address] Result Comment: Faye mated Glomerular Filtration Rate [...] actual GFR. Performed By: #### 2 4323-8 ####[facility] LABCLIA [id number] [place] [address] Glucose [Mass/Vol] 156 mg/dL High 74-99 [facility] Comment on above: Order Comment: Speci men Type: BLOOD SPECIMENOrdering Facility: [facility] Address: [address] [place], [place] [address] Result Comment: The [place] [employer] (ADA) provides guidance for cutoff [...] Standards of Medical Care in Diabetes 2016, [place] [employer]. Diabetes Care. 2016.39(Suppl 1). Performed By: #### 2 4323-8 ####[facility] LABCLIA [id number] [place] [address] Potassium [Moles/Vol] 4.1 mmol/L Normal 3.7-5.1 [facility] Comment on above: Order Comment: Speci men Type: BLOOD SPECIMENOrdering Facility: [facility] Address: [address] [address] Performed By: #### 2 4323-8 ####[facility] LABCLIA [id number] [place] [address] Protein [Mass/Vol] 6.7 g/dL Normal 6.3-8.0 [facility] Comment on above: Order Comment: Speci men Type: BLOOD SPECIMENOrdering Facility: [facility] Address: [address] [address] Performed By: #### 2 4323-8 ####[facility] LABCLIA [id number] [place] [address] Sodium [Moles/Vol] 141 mmol/L Normal 136-144 [facility] Comment on above: Order Comment: Speci men Type: BLOOD SPECIMENOrdering Facility: [facility] Address: [address] [address] Performed By: #### 2 4323-8 ####[facility] LABCLIA [id number] [place] [address] Urea nitrogen [Mass/Vol] 19 mg/dL Normal 9-24 [facility] Comment on above: Order Comment: Speci men Type: BLOOD SPECIMENOrdering Facility: [facility] Address: [address] [address] Performed By: #### 2 4323-8 ####[facility] LABCLIA [id number] [place] [id number] HEMOGLOBIN AND HEMATOCRITon 09-25-2022 Hematocrit (Bld) [Volume fraction] 21.2 % Critically low 42.0-54.0 [facility] Comment on above: Performed By: #### T NS, PRBC #### [facility] [address] [place] [address] Dr. Benito To Hemoglobin (Bld) [Mass/Vol] 6.7 g/dL Critically low 14.0-18.0 [facility] Comment on above: Performed By: #### T NS, PRBC #### [facility] [address] [address] [address] Benito To TYPE AND SCREENon 09-25-2022 TYPE AND SCREEN Negative Normal [facility] Comment on above: Performed By: #### P RBC, TNS #### [facility] [address] [place] [address] Dr. Benito To CBC W Auto Differential pane l (Bld)on 09-18-2022 Anisocytosis Ql (Bld) Present Normal [facility] Comment on above: Order Comment: Speci men Type: BLOOD SPECIMENOrdering Facility: [facility] Address: [address] [place] [address] Performed By: #### 5 7021-8 ####[facility] LABCLIA [id number] [facility] [id number] LABCLIA [id number] [place] [address] Basophils (Bld) [#/Vol] 0.09 10*3/uL Normal <0.11 [facility] Comment on above: Order Comment: Speci men Type: BLOOD SPECIMENOrdering Facility: [facility] Address: [address] [place] [address] Performed By: #### 5 7021-8 ####[facility] LABCLIA [id number] [address] LABCLIA [id number] [place] [address] Basophils/100 WBC (Bld) 4.0 % Normal [facility] Comment on above: Order Comment: Speci men Type: BLOOD SPECIMENOrdering Facility: [facility] Address: [address] [place] [address] Performed By: #### 5 7021-8 ####[facility] LABCLIA [id number] [address] LABCLIA [id number] [place] [address] Differential cell count method Nom (Bld) Manual Normal [facility] Comment on above: Order Comment: Speci men Type: BLOOD SPECIMENOrdering Facility: [facility] Address: [address] [place] [address] Performed By: #### 5 7021-8 ####[facility] LABCLIA [id number] [address] LABCLIA [id number] [place] [address] Eosinophils (Bld) [#/Vol] 0.00 10*3/uL Normal <0.46 [facility] Comment on above: Order Comment: Speci men Type: BLOOD SPECIMENOrdering Facility: [facility] Address: [address] [place] [address] Performed By: #### 5 7021-8 ####[facility] LABCLIA [id number] [address] LABCLIA [id number] [place] [address] Eosinophils/100 WBC (Bld) 0.0 % Normal [facility] Comment on above: Order Comment: Speci men Type: BLOOD SPECIMENOrdering Facility: [facility] Address: [address] [place] [address] Performed By: #### 5 7021-8 ####[facility] LABCLIA [id number] [address] LABCLIA [id number] [place] [address] Erythrocyte distribution width (RBC) [Ratio] 17.1 % High 11.5-15.0 [facility] Comment on above: Order Comment: Speci men Type: BLOOD SPECIMENOrdering Facility: [facility] Address: [address] [place] [address] Performed By: #### 5 7021-8 ####[facility] LABCLIA [id number] [address] LABCLIA [id number] [place] [address] Hematocrit (Bld) [Volume fraction] 25.3 % Low 39.0-51.0 [facility] Comment on above: Order Comment: Speci men Type: BLOOD SPECIMENOrdering Facility: [facility] Address: [address] [place] [address] Performed By: #### 5 7021-8 ####[facility] LABCLIA [id number] [address] LABCLIA [id number] [place] [address] Hemoglobin (Bld) [Mass/Vol] 8.0 g/dL Low 13.0-17.0 [facility] Comment on above: Order Comment: Speci men Type: BLOOD SPECIMENOrdering Facility: [facility] Address: [address] [place] [address] Performed By: #### 5 7021-8 ####[facility] LABCLIA [id number] [address] LABCLIA [id number] [place] [address] Lymphocytes (Bld) [#/Vol] 0.70 10*3/uL Low 1.00-4.00 [facility] Comment on above: Order Comment: Speci men Type: BLOOD SPECIMENOrdering Facility: [facility] Address: [address] [place] [address] Performed By: #### 5 7021-8 ####[facility] LABCLIA [id number] [address] LABCLIA [id number] [place] [address] Lymphocytes/100 WBC (Bld) 30.0 % Normal [facility] Comment on above: Order Comment: Speci men Type: BLOOD SPECIMENOrdering Facility: [facility] Address: [address] [place] [address] Performed By: #### 5 7021-8 ####[facility] LABCLIA [id number] [address] LABCLIA [id number] [place] [address] MCH (RBC) [Entitic mass] 31.9 pg Normal 26.0-34.0 [facility] Comment on above: Order Comment: Speci men Type: BLOOD SPECIMENOrdering Facility: [facility] Address: [address] [place] [address] Performed By: #### 5 7021-8 ####[facility] LABCLIA [id number] [address] LABCLIA [id number] [place] [address] MCHC (RBC) [Mass/Vol] 31.6 g/dL Normal 30.5-36.0 [facility] Comment on above: Order Comment: Speci men Type: BLOOD SPECIMENOrdering Facility: [facility] Address: [address] [place] [address] Performed By: #### 5 7021-8 ####[facility] LABCLIA [id number] [address] LABCLIA [id number] [place] [address] MCV (RBC) [Entitic vol] 100.8 fL High 80.0-100.0 [facility] Comment on above: Order Comment: Speci men Type: BLOOD SPECIMENOrdering Facility: [facility] Address: [address] [place] [address] Performed By: #### 5 7021-8 ####[facility] LABCLIA [id number] [address] LABCLIA [id number] [place] [address] Monocytes (Bld) [#/Vol] 0.21 10*3/uL Normal <0.87 [facility] Comment on above: Order Comment: Speci men Type: BLOOD SPECIMENOrdering Facility: [facility] Address: [address] [place] [address] Performed By: #### 5 7021-8 ####[facility] LABCLIA [id number] [address] LABCLIA [id number] [place] [address] Monocytes/100 WBC (Bld) 9.0 % Normal [facility] Comment on above: Order Comment: Speci men Type: BLOOD SPECIMENOrdering Facility: [facility] Address: [address] [place] [address] Performed By: #### 5 7021-8 ####[facility] LABCLIA [id number] [address] LABCLIA [id number] [place] [address] MYELO% 11.0 % Normal [facility] Comment on above: Order Comment: Speci men Type: BLOOD SPECIMENOrdering Facility: [facility] Address: [address] [place] [address] Performed By: #### 5 7021-8 ####[facility] LABCLIA [id number] [address] LABCLIA [id number] [place] [address] Neutrophils (Bld) [#/Vol] 1.10 10*3/uL Low 1.45-7.50 [facility] Comment on above: Order Comment: Speci men Type: BLOOD SPECIMENOrdering Facility: [facility] Address: [address] [place] [address] Performed By: #### 5 7021-8 ####[facility] LABCLIA [id number] [address] LABCLIA [id number] [place] [address] Neutrophils/100 WBC (Bld) 47.0 % Normal [facility] Comment on above: Order Comment: Speci men Type: BLOOD SPECIMENOrdering Facility: [facility] Address: [address] [place] [address] Performed By: #### 5 7021-8 ####[facility] LABCLIA [id number] [address] LABCLIA [id number] [place] [address] Nucleated RBC (Bld) [#/Vol] 10*3/uL Normal <0.01 [facility] Comment on above: Order Comment: Speci men Type: BLOOD SPECIMENOrdering Facility: [facility] Address: [address] [place] [address] Performed By: #### 5 7021-8 ####[facility] LABCLIA [id number] [address] LABCLIA [id number] [place] [address] Nucleated RBC/100 WBC (Bld) [Ratio] 0.0 /100 WBC Normal [facility] Comment on above: Order Comment: Speci men Type: BLOOD SPECIMENOrdering Facility: [facility] Address: [address] [place], [place] [address] Performed By: #### 5 7021-8 ####[facility] LABCLIA [id number] [address] LABCLIA [id number] [place] [address] Ovalocytes LM Ql (Bld) Few Normal [facility] Comment on above: Order Comment: Speci men Type: BLOOD SPECIMENOrdering Facility: [facility] Address: [address] [place] [address] Performed By: #### 5 7021-8 ####[facility] LABCLIA [id number] [address] LABCLIA [id number] [place] [address] Platelet mean volume (Bld) [Entitic vol] Normal [facility] Comment on above: Order Comment: Speci men Type: BLOOD SPECIMENOrdering Facility: [facility] Address: [address] [place] [address] Result Comment: Unab le to Report. Performed By: #### 5 7021-8 ####[facility] LABCLIA [id number] [address] LABCLIA [id number] [place] [address] Platelets (Bld) [#/Vol] 65 10*3/uL Low 150-400 [facility] Comment on above: Order Comment: Speci men Type: BLOOD SPECIMENOrdering Facility: [facility] Address: [address] [place] [address] Result Comment: Resu lts checked and verified.No clot detected. Performed By: #### 5 7021-8 ####[facility] LABCLIA [id number] [address] LABCLIA [id number] [place] [address] Platelets Estimate (Bld) [#/Vol] Decreased Normal [facility] Comment on above: Order Comment: Speci men Type: BLOOD SPECIMENOrdering Facility: [facility] Address: [address] [place] [address] Performed By: #### 5 7021-8 ####[facility] LABCLIA [id number] [address] LABCLIA [id number] [place] [address] Polychromasia LM Ql (Bld) Slight Normal [facility] Comment on above: Order Comment: Speci men Type: BLOOD SPECIMENOrdering Facility: [facility] Address: [address] [place], [place] [address] Performed By: #### 5 7021-8 ####[facility] LABCLIA [id number] [address] LABCLIA [id number] [place] [address] RBC (Bld) [#/Vol] 2.51 10*6/uL Low 4.20-6.00 [facility] Comment on above: Order Comment: Speci men Type: BLOOD SPECIMENOrdering Facility: [facility] Address: [address] [place] [address] Performed By: #### 5 7021-8 ####[facility] LABCLIA [id number] [address] LABCLIA [id number] [place] [address] RED CELL MORPH Reviewed: see result s of individual morphologies Normal [facility] Comment on above: Order Comment: Speci men Type: BLOOD SPECIMENOrdering Facility: [facility] Address: [address] [place] [address] Performed By: #### 5 7021-8 ####[facility] LABCLIA [id number] [address] LABCLIA [id number] [place] [address] WBC (Bld) [#/Vol] 2.33 10*3/uL Low 3.70-11.00 [facility] Comment on above: Order Comment: Speci men Type: BLOOD SPECIMENOrdering Facility: [facility] Address: [address] [place], [place] [address] Result Comment: Resu lts checked and verified.No clot detected. Performed By: #### 5 7021-8 ####[facility] LABCLIA [id number] [address] LABCLIA [id number] [place] [address] WBC Left Shift Ql (Bld) Present Normal [facility] Comment on above: Order Comment: Speci men Type: BLOOD SPECIMENOrdering Facility: [facility] Address: [address] Performed By: #### 5 7021-8 ####[facility] LABCLIA [id number] [facility] [id number] LABCLIA [id number] [place] [address] CNOVSPon 09-18-2022 CNOVSP Normal [facility] Comprehensive metabolic 2000 panelon 09-18-2022 Albumin [Mass/Vol] 3.9 g/dL Normal 3.9-4.9 [facility] Comment on above: Order Comment: Speci men Type: BLOOD SPECIMENOrdering Facility: [facility] Address: [address] [place] [address] Performed By: #### 2 4323-8 ####[facility] LABCLIA [id number] [place] [address] ALP [Catalytic activity/Vol] 164 U/L High 38-113 [facility] Comment on above: Order Comment: Speci men Type: BLOOD SPECIMENOrdering Facility: [facility] Address: [address] [place] [address] Performed By: #### 2 4323-8 ####[facility] LABCLIA [id number] [place] [address] ALT [Catalytic activity/Vol] 60 U/L High 10-54 [facility] Comment on above: Order Comment: Speci men Type: BLOOD SPECIMENOrdering Facility: [facility] Address: [address] Performed By: #### 2 4323-8 ####[facility] LABCLIA [id number] [place] [address] Anion gap [Moles/Vol] 11 mmol/L Normal 9-18 [facility] Comment on above: Order Comment: Speci men Type: BLOOD SPECIMENOrdering Facility: [facility] Address: [address] Performed By: #### 2 4323-8 ####[facility] LABCLIA [id number] [place] [address] AST [Catalytic activity/Vol] 36 U/L Normal 14-40 [facility] Comment on above: Order Comment: Speci men Type: BLOOD SPECIMENOrdering Facility: [facility] Address: [address] [place] [address] Performed By: #### 2 4323-8 ####[facility] LABCLIA [id number] [place] [address] Bilirubin [Mass/Vol] 1.2 mg/dL Normal 0.2-1.3 [facility] Comment on above: Order Comment: Speci men Type: BLOOD SPECIMENOrdering Facility: [facility] Address: [address] [place] [address] Performed By: #### 2 4323-8 ####[facility] LABCLIA [id number] [place] [address] Calcium [Mass/Vol] 9.0 mg/dL Normal 8.5-10.2 [facility] Comment on above: Order Comment: Speci men Type: BLOOD SPECIMENOrdering Facility: [facility] Address: [address] [place] [address] Performed By: #### 2 4323-8 ####[facility] LABCLIA [id number] [place] [address] Chloride [Moles/Vol] 100 mmol/L Normal 97-105 [facility] Comment on above: Order Comment: Speci men Type: BLOOD SPECIMENOrdering Facility: [facility] Address: [address] [place] [address] Performed By: #### 2 4323-8 ####[facility] LABCLIA [id number] [place] [address] CO2 [Moles/Vol] 33 mmol/L High 22-30 [facility] Comment on above: Order Comment: Speci men Type: BLOOD SPECIMENOrdering Facility: [facility] Address: [address] [address] Performed By: #### 2 4323-8 ####[facility] LABCLIA [id number] [place] [address] Creatinine [Mass/Vol] 1.40 mg/dL High 0.73-1.22 [facility] Comment on above: Order Comment: Speci men Type: BLOOD SPECIMENOrdering Facility: [facility] Address: [address] [place] [address] Performed By: #### 2 4323-8 ####[facility] LABCLIA [id number] [place] [address] ESTIMATED GLOMERULAR FILTRATION RATE 50 mL/min/1.73m??? Low >=60 [facility] Comment on above: Order Comment: Speci men Type: BLOOD SPECIMENOrdering Facility: [facility] Address: [address] [place] [address] Result Comment: Faye mated Glomerular Filtration Rate [...] actual GFR. Performed By: #### 2 4323-8 ####[facility] LABCLIA [id number] [place] [address] Glucose [Mass/Vol] 143 mg/dL High 74-99 [facility] Comment on above: Order Comment: Davi avendaño Type: BLOOD SPECIMENOrdering Facility: [facility] Address: [address] [place] [address] Result Comment: The [place] [employer] (ADA) provides guidance for cutoff [...] Standards of Medical Care in Diabetes 2016, [place] [employer]. Diabetes Care. 2016.39(Suppl 1). Performed By: #### 2 4323-8 ####[facility] LABCLIA [id number] [place] [address] Potassium [Moles/Vol] 3.8 mmol/L Normal 3.7-5.1 [facility] Comment on above: Order Comment: Speci men Type: BLOOD SPECIMENOrdering Facility: [facility] Address: [address] [place] [address] Performed By: #### 2 4323-8 ####[facility] LABIA [id number] [place] [address] Protein [Mass/Vol] 6.7 g/dL Normal 6.3-8.0 [facility] Comment on above: Order Comment: Speci men Type: BLOOD SPECIMENOrdering Facility: [facility] Address: [address] [place] [address] Performed By: #### 2 4323-8 ####[facility] LABCLIA [id number] [place] [address] Sodium [Moles/Vol] 144 mmol/L Normal 136-144 [facility] Comment on above: Order Comment: Speci men Type: BLOOD SPECIMENOrdering Facility: [facility] Address: [address] [place] [address] Performed By: #### 2 4323-8 ####[facility] LABCLIA [id number] [place] [address] Urea nitrogen [Mass/Vol] 21 mg/dL Normal 9-24 [facility] Comment on above: Order Comment: Speci men Type: BLOOD SPECIMENOrdering Facility: [facility] Address: [address] [place] [address] Performed By: #### 2 4323-8 ####[facility] LABCLIA [id number] [place] [address] CBC W Auto Differential pane l (Bld)on 09-11-2022 Anisocytosis Ql (Bld) Present Normal [facility] Comment on above: Order Comment: Speci men Type: BLOOD SPECIMENOrdering Facility: [facility] Address: [address] [address] Performed By: #### 5 7021-8 ####[facility] LABCLIA [id number] [address] LABCLIA [id number] [place] [id number] Basophils (Bld) [#/Vol] 0.00 10*3/uL Normal <0.11 [facility] Comment on above: Order Comment: Speci men Type: BLOOD SPECIMENOrdering Facility: [facility] Address: [address] [place] [address] Performed By: #### 5 7021-8 ####[facility] LABCLIA [id number] [address] LABCLIA [id number] [place] [address] Basophils/100 WBC (Bld) 0.0 % Normal [facility] Comment on above: Order Comment: Speci men Type: BLOOD SPECIMENOrdering Facility: [facility] Address: [address] Performed By: #### 5 7021-8 ####[facility] LABCLIA [id number] [address] LABCLIA [id number] [place] [address] BLAST% 1.0 % High <=0.0 [facility] Comment on above: Order Comment: Speci men Type: BLOOD SPECIMENOrdering Facility: [facility] Address: [address] [place] [address] Performed By: #### 5 7021-8 ####[facility] LABCLIA [id number] [address] LABCLIA [id number] [place] [id number] Differential cell count method Nom (Bld) Manual Normal [facility] Comment on above: Order Comment: Speci men Type: BLOOD SPECIMENOrdering Facility: [facility] Address: [address] [place] [address] Performed By: #### 5 7021-8 ####[facility] LABCLIA [id number] [address] LABCLIA [id number] [place] [address] DYSPLASTIC PMNS Occasional Normal [facility] Comment on above: Order Comment: Speci men Type: BLOOD SPECIMENOrdering Facility: [facility] Address: [address] [place] [address] Performed By: #### 5 7021-8 ####[facility] LABCLIA [id number] [address] LABCLIA [id number] [place] [address] Eosinophils (Bld) [#/Vol] 0.00 10*3/uL Normal <0.46 [facility] Comment on above: Order Comment: Speci men Type: BLOOD SPECIMENOrdering Facility: [facility] Address: [address] [place] [address] Performed By: #### 5 7021-8 ####[facility] LABCLIA [id number] [address] [facility] [address] LABCLIA [id number] [place] [address] Eosinophils/100 WBC (Bld) 0.0 % Normal [facility] Comment on above: Order Comment: Speci men Type: BLOOD SPECIMENOrdering Facility: [facility] Address: [address] [place] [address] Performed By: #### 5 7021-8 ####[facility] LABCLIA [id number] [place] [id number] [facility] LABCLIA [id number] [place] [address] Erythrocyte distribution width (RBC) [Ratio] 16.1 % High 11.5-15.0 [facility] Comment on above: Order Comment: Speci men Type: BLOOD SPECIMENOrdering Facility: [facility] Address: [address] [place] [address] Performed By: #### 5 7021-8 ####[facility] LABCLIA [id number] [address] LABCLIA [id number] [place] [address] Giant platelets LM Ql (Bld) Occasional Normal [facility] Comment on above: Order Comment: Speci men Type: BLOOD SPECIMENOrdering Facility: [facility] Address: [address] [place], [place] [address] Performed By: #### 5 7021-8 ####[facility] LABCLIA [id number] [address] LABCLIA [id number] [place] [address] Hematocrit (Bld) [Volume fraction] 22.5 % Low 39.0-51.0 [facility] Comment on above: Order Comment: Speci men Type: BLOOD SPECIMENOrdering Facility: [facility] Address: [address] [place] [address] Performed By: #### 5 7021-8 ####[facility] LABCLIA [id number] [address] LABCLIA [id number] [place] [address] Hemoglobin (Bld) [Mass/Vol] 7.2 g/dL Low 13.0-17.0 [facility] Comment on above: Order Comment: Speci men Type: BLOOD SPECIMENOrdering Facility: [facility] Address: [address] [place], [place] [address] Performed By: #### 5 7021-8 ####[facility] LABCLIA [id number] [address] LABCLIA [id number] [place] [address] Lymphocytes (Bld) [#/Vol] 0.97 10*3/uL Low 1.00-4.00 [facility] Comment on above: Order Comment: Speci men Type: BLOOD SPECIMENOrdering Facility: [facility] Address: [address] [place], [place] [address] Performed By: #### 5 7021-8 ####[facility] LABCLIA [id number] [address] LABCLIA [id number] [place] [address] Lymphocytes/100 WBC (Bld) 43.0 % Normal [facility] Comment on above: Order Comment: Speci men Type: BLOOD SPECIMENOrdering Facility: [facility] Address: [address] [place] [address] Performed By: #### 5 7021-8 ####[facility] LABCLIA [id number] [address] LABCLIA [id number] [place] [address] MCH (RBC) [Entitic mass] 31.3 pg Normal 26.0-34.0 [facility] Comment on above: Order Comment: Speci men Type: BLOOD SPECIMENOrdering Facility: [facility] Address: [address] [place] [address] Performed By: #### 5 7021-8 ####[facility] LABIA [id number] [address] LABCLIA [id number] [place] [address] MCHC (RBC) [Mass/Vol] 32.0 g/dL Normal 30.5-36.0 [facility] Comment on above: Order Comment: Speci men Type: BLOOD SPECIMENOrdering Facility: [facility] Address: [address] [place] [address] Performed By: #### 5 7021-8 ####[facility] LABIA [id number] [address] LABCLIA [id number] [place] [address] MCV (RBC) [Entitic vol] 97.8 fL Normal 80.0-100.0 [facility] Comment on above: Order Comment: Speci men Type: BLOOD SPECIMENOrdering Facility: [facility] Address: [address] [place], [place] [address] Performed By: #### 5 7021-8 ####[facility] LABIA [id number] [address] LABIA [id number] [place] [address] Metamyelocytes/100 WBC (Bld) 2.0 % Normal [facility] Comment on above: Order Comment: Speci men Type: BLOOD SPECIMENOrdering Facility: [facility] Address: [address] [place], [place] [address] Performed By: #### 5 7021-8 ####[facility] LABCLIA [id number] [address] LABCLIA [id number] [place] [address] Monocytes (Bld) [#/Vol] 0.25 10*3/uL Normal <0.87 [facility] Comment on above: Order Comment: Speci men Type: BLOOD SPECIMENOrdering Facility: [facility] Address: [address] Performed By: #### 5 7021-8 ####[facility] LABCLIA [id number] [address] LABCLIA [id number] [place] [address] Monocytes/100 WBC (Bld) 11.0 % Normal [facility] Comment on above: Order Comment: Speci men Type: BLOOD SPECIMENOrdering Facility: [facility] Address: [address] [place] [address] Performed By: #### 5 7021-8 ####[facility] LABCLIA [id number] [address] LABCLIA [id number] [place] [address] MYELO% 6.0 % Normal [facility] Comment on above: Order Comment: Speci men Type: BLOOD SPECIMENOrdering Facility: [facility] Address: [address] [place] [address] Performed By: #### 5 7021-8 ####[facility] LABCLIA [id number] [address] LABCLIA [id number] [place] [address] Neutrophils (Bld) [#/Vol] 0.83 10*3/uL Low 1.45-7.50 [facility] Comment on above: Order Comment: Speci men Type: BLOOD SPECIMENOrdering Facility: [facility] Address: [address] [place] [address] Performed By: #### 5 7021-8 ####[facility] LABCLIA [id number] [address] LABCLIA [id number] [place] [address] Neutrophils/100 WBC (Bld) 37.0 % Normal [facility] Comment on above: Order Comment: Speci men Type: BLOOD SPECIMENOrdering Facility: [facility] Address: [address] [place] [address] Performed By: #### 5 7021-8 ####[facility] LABCLIA [id number] [address] LABCLIA [id number] [place] [address] Nucleated RBC (Bld) [#/Vol] 0.02 10*3/uL High <0.01 [facility] Comment on above: Order Comment: Speci men Type: BLOOD SPECIMENOrdering Facility: [facility] Address: [address] [place] [address] Performed By: #### 5 7021-8 ####[facility] LABCLIA [id number] [address] LABCLIA [id number] [place] [address] Nucleated RBC/100 WBC (Bld) [Ratio] 1.0 /100 WBC Normal [facility] Comment on above: Order Comment: Speci men Type: BLOOD SPECIMENOrdering Facility: [facility] Address: [address] [place] [address] Performed By: #### 5 7021-8 ####[facility] LABCLIA [id number] [address] LABCLIA [id number] [place] [address] Ovalocytes LM Ql (Bld) Few Normal [facility] Comment on above: Order Comment: Speci men Type: BLOOD SPECIMENOrdering Facility: [facility] Address: [address] [place] [address] Performed By: #### 5 7021-8 ####[facility] LABCLIA [id number] [address] LABCLIA [id number] [place] [address] Platelet mean volume (Bld) [Entitic vol] Normal [facility] Comment on above: Order Comment: Speci men Type: BLOOD SPECIMENOrdering Facility: [facility] Address: [address] [place] [address] Result Comment: Unab le to report Performed By: #### 5 7021-8 ####[facility] LABCLIA [id number] [address] LABCLIA [id number] [place] [address] Platelets (Bld) [#/Vol] 62 10*3/uL Low 150-400 [facility] Comment on above: Order Comment: Speci men Type: BLOOD SPECIMENOrdering Facility: [facility] Address: [address] [place] [address] Performed By: #### 5 7021-8 ####[facility] LABCLIA [id number] [address] LABCLIA [id number] [place] [address] Platelets Estimate (Bld) [#/Vol] Decreased Normal [facility] Comment on above: Order Comment: Speci men Type: BLOOD SPECIMENOrdering Facility: [facility] Address: [address] [place] [address] Performed By: #### 5 7021-8 ####[facility] LABCLIA [id number] [address] LABCLIA [id number] [place] [address] Polychromasia LM Ql (Bld) Slight Normal [facility] Comment on above: Order Comment: Speci men Type: BLOOD SPECIMENOrdering Facility: [facility] Address: [address] [place] [address] Performed By: #### 5 7021-8 ####[facility] LABCLIA [id number] [address] LABCLIA [id number] [place] [address] RBC (Bld) [#/Vol] 2.30 10*6/uL Low 4.20-6.00 [facility] Comment on above: Order Comment: Speci men Type: BLOOD SPECIMENOrdering Facility: [facility] Address: [address] [place] [address] Performed By: #### 5 7021-8 ####[facility] LABCLIA [id number] [address] LABCLIA [id number] [place] [address] RED CELL MORPH Reviewed: see result s of individual morphologies Normal [facility] Comment on above: Order Comment: Speci men Type: BLOOD SPECIMENOrdering Facility: [facility] Address: [address] [place] [address] Performed By: #### 5 7021-8 ####[facility] LABCLIA [id number] [address] [facility] LABCLIA [id number] [place] [address] WBC (Bld) [#/Vol] 2.25 10*3/uL Low 3.70-11.00 [facility] Comment on above: Order Comment: Speci men Type: BLOOD SPECIMENOrdering Facility: [facility] Address: [address] [place] [address] Result Comment: Resu lts checked and verified.No clot detected. Performed By: #### 5 7021-8 ####[facility] LABCLIA [id number] [address] LABCLIA [id number] [place] [address] WBC Left Shift Ql (Bld) Present Normal [facility] Comment on above: Order Comment: Speci men Type: BLOOD SPECIMENOrdering Facility: [facility] Address: [address] [place] [address] Performed By: #### 5 7021-8 ####[facility] LABCLIA [id number] [address] LABCLIA [id number] [place] [address] CNPNon 09-11-2022 CNPN Normal [facility] Comprehensive metabolic 2000 panelon 09-11-2022 Albumin [Mass/Vol] 3.9 g/dL Normal 3.9-4.9 [facility] Comment on above: Order Comment: Speci men Type: BLOOD SPECIMENOrdering Facility: [facility] Address: [address] [place], [place] [address] Performed By: #### 2 4323-8 ####[facility] LABCLIA [id number] [place] [address] ALP [Catalytic activity/Vol] 148 U/L High 38-113 [facility] Comment on above: Order Comment: Speci men Type: BLOOD SPECIMENOrdering Facility: [facility] Address: [address] [place] [address] Performed By: #### 2 4323-8 ####[facility] LABCLIA [id number] [place] [address] ALT [Catalytic activity/Vol] 48 U/L Normal 10-54 [facility] Comment on above: Order Comment: Speci men Type: BLOOD SPECIMENOrdering Facility: [facility] Address: [address] [place] [address] Performed By: #### 2 4323-8 ####[facility] LABCLIA [id number] [place] [address] Anion gap [Moles/Vol] 11 mmol/L Normal 9-18 [facility] Comment on above: Order Comment: Speci men Type: BLOOD SPECIMENOrdering Facility: [facility] Address: [address] [place] [address] Performed By: #### 2 4323-8 ####[facility] LABCLIA [id number] [place] [address] AST [Catalytic activity/Vol] 28 U/L Normal 14-40 [facility] Comment on above: Order Comment: Speci men Type: BLOOD SPECIMENOrdering Facility: [facility] Address: [address] [place] [address] Performed By: #### 2 4323-8 ####[facility] LABCLIA [id number] [place] [address] Bilirubin [Mass/Vol] 1.2 mg/dL Normal 0.2-1.3 [facility] Comment on above: Order Comment: Speci men Type: BLOOD SPECIMENOrdering Facility: [facility] Address: [address] [place] [address] Performed By: #### 2 4323-8 ####[facility] LABCLIA [id number] [place] [address] Calcium [Mass/Vol] 9.3 mg/dL Normal 8.5-10.2 [facility] Comment on above: Order Comment: Speci men Type: BLOOD SPECIMENOrdering Facility: [facility] Address: [address] [place] [address] Performed By: #### 2 4323-8 ####[facility] LABCLIA [id number] [place] [address] Chloride [Moles/Vol] 97 mmol/L Normal 97-105 [facility] Comment on above: Order Comment: Speci men Type: BLOOD SPECIMENOrdering Facility: [facility] Address: [address] [place] [address] Performed By: #### 2 4323-8 ####[facility] LABCLIA [id number] [place] [address] CO2 [Moles/Vol] 32 mmol/L High 22-30 [facility] Comment on above: Order Comment: Speci men Type: BLOOD SPECIMENOrdering Facility: [facility] Address: [address] [place] [address] Performed By: #### 2 4323-8 ####[facility] LABCLIA [id number] [place] [address] Creatinine [Mass/Vol] 1.34 mg/dL High 0.73-1.22 [facility] Comment on above: Order Comment: Speci men Type: BLOOD SPECIMENOrdering Facility: [facility] Address: [address] [place] [address] Performed By: #### 2 4323-8 ####[facility] LABCLIA [id number] [place] [address] ESTIMATED GLOMERULAR FILTRATION RATE 53 mL/min/1.73m??? Low >=60 [facility] Comment on above: Order Comment: Speci men Type: BLOOD SPECIMENOrdering Facility: [facility] Address: [address] [place] [address] Result Comment: Faye mated Glomerular Filtration Rate (eGFR) is calculated using the 2021 CKD-EPI creatinine equation. This equation utilizes serum creatinine, sex, and age as parameters. The creatinine assay has traceable calibration to isotope dilution-mass spectrometry. Refer to KDIGO guidelines for clinical interpretation. In patients with unstable renal function, e.g. those with acute kidney injury, the eGFR may not accurately reflect actual GFR. Performed By: #### 2 4323-8 ####[facility] LABCLIA [id number] [place] [address] Glucose [Mass/Vol] 205 mg/dL High 74-99 [facility] Comment on above: Order Comment: Speci men Type: BLOOD SPECIMENOrdering Facility: [facility] Address: [place] [address] Result Comment: The [place] [employer] (ADA) provides guidance for cutoff [...] Standards of Medical Care in Diabetes 2016, [place] [employer]. Diabetes Care. 2016.39(Suppl 1). Performed By: #### 2 4323-8 ####[facility] LABCLIA [id number] [place] [address] Potassium [Moles/Vol] 3.5 mmol/L Low 3.7-5.1 [facility] Comment on above: Order Comment: Speci men Type: BLOOD SPECIMENOrdering Facility: [facility] Address: [place] [address] Performed By: #### 2 4323-8 ####[facility] LABCLIA [id number] [place] [address] Protein [Mass/Vol] 6.3 g/dL Normal 6.3-8.0 [facility] Comment on above: Order Comment: Speci men Type: BLOOD SPECIMENOrdering Facility: [facility] Address: [address] [address] Performed By: #### 2 4323-8 ####[facility] LABCLIA [id number] [place] [address] Sodium [Moles/Vol] 140 mmol/L Normal 136-144 [facility] Comment on above: Order Comment: Speci men Type: BLOOD SPECIMENOrdering Facility: [facility] Address: [address] [address] Performed By: #### 2 4323-8 ####[facility] LABCLIA [id number] [place] [address] Urea nitrogen [Mass/Vol] 25 mg/dL High 9-24 [facility] Comment on above: Order Comment: Speci men Type: BLOOD SPECIMENOrdering Facility: [facility] Address: [address] [address] Performed By: #### 2 4323-8 ####[facility] LABCLIA [id number] [place] [id number] HEMOGRAM AND PLATELon 2022 Hematocrit (Bld) [Volume fraction] 22.3 % Critically low 42.0-54.0 [facility] Comment on above: Performed By: #### H H #### [facility] [address] [place] [address] Dr. Benito To Hemoglobin (Bld) [Mass/Vol] 7.3 g/dL Critically low 14.0-18.0 [facility] Comment on above: Performed By: #### H H #### [facility] [address] [address] [address] Benito To MCH (RBC) [Entitic mass] 32.0 pg Normal 25.9-34.0 [facility] Comment on above: Performed By: #### H H #### [facility] [address] [place] [address] Dr. Benito To MCHC (RBC) [Mass/Vol] 32.7 g/dL Normal 29.9-35.2 [facility] Comment on above: Performed By: #### H H #### [facility] [address] [place] [address] Dr. Benito To MCV (RBC) [Entitic vol] 97.8 fL Critically high 80.0-94.0 [facility] Comment on above: Performed By: #### H H #### [facility] [address] [place] [address] Dr. Benito To PLT 49 103/ul Critically low 150-450 [facility] Comment on above: Performed By: #### H H #### [facility] [address] [place] [address] Dr. Benito To RBC 2.28 106/ul Critically low 4.70-6.10 [facility] Comment on above: Performed By: #### H H #### [facility] [address] [place] [address] Dr. Benito To WBC 2.4 103/ul Critically low 4.0-11.0 [facility] Comment on above: Performed By: #### H H #### [facility] [address] [place] [address] Dr. Benito To TYPE AND SCREENon 09-11-2022 TYPE AND SCREEN Negative Normal [facility] Comment on above: Performed By: #### P RBC, TNS #### [facility] [address] [place] [address] Dr. Benito To HEMOGLOBIN AND HEMATOCRITon 09-05-2022 Hematocrit (Bld) [Volume fraction] 20.7 % Critically low 42.0-54.0 [facility] Comment on above: Performed By: #### T NS, PRBC #### [facility] [address] [place] [address] Dr. Benito To Hemoglobin (Bld) [Mass/Vol] 6.8 g/dL Critically low 14.0-18.0 [facility] Comment on above: Performed By: #### T NS, PRBC #### [facility] [address] [address] [address] Benito To TYPE AND SCREENon 09-05-2022 TYPE AND SCREEN Negative Normal [facility] Comment on above: Performed By: #### T NS, PRBC #### [facility] [address] [address] [address] Benito To CBC W Auto Differential pane l (Bld)on 09-04-2022 Anisocytosis Ql (Bld) Present Normal [facility] Comment on above: Order Comment: Speci men Type: BLOOD SPECIMENOrdering Facility: [facility] Address: [address] [place] [address] Performed By: #### 5 7021-8 ####[facility] LABCLIA [id number] [address] LABCLIA [id number] [place] [address] Basophils (Bld) [#/Vol] 0.09 10*3/uL Normal <0.11 [facility] Comment on above: Order Comment: Speci men Type: BLOOD SPECIMENOrdering Facility: [facility] Address: [address] [place] [address] Performed By: #### 5 7021-8 ####[facility] LABCLIA [id number] [address] LABCLIA [id number] [place] [address] Basophils/100 WBC (Bld) 3.0 % Normal [facility] Comment on above: Order Comment: Speci men Type: BLOOD SPECIMENOrdering Facility: [facility] Address: [address] [place], [place] [address] Performed By: #### 5 7021-8 ####[facility] LABCLIA [id number] [address] LABCLIA [id number] [place] [address] Eosinophils (Bld) [#/Vol] 0.03 10*3/uL Normal <0.46 [facility] Comment on above: Order Comment: Speci men Type: BLOOD SPECIMENOrdering Facility: [facility] Address: [address] [place] [address] Performed By: #### 5 7021-8 ####[facility] LABCLIA [id number] [address] LABCLIA [id number] [place] [address] Eosinophils/100 WBC (Bld) 1.0 % Normal [facility] Comment on above: Order Comment: Speci men Type: BLOOD SPECIMENOrdering Facility: [facility] Address: [address] [place] [address] Performed By: #### 5 7021-8 ####[facility] LABCLIA [id number] [address] LABCLIA [id number] [place] [address] Erythrocyte distribution width (RBC) [Ratio] 15.7 % High 11.5-15.0 [facility] Comment on above: Order Comment: Speci men Type: BLOOD SPECIMENOrdering Facility: [facility] Address: [address] [place] [address] Performed By: #### 5 7021-8 ####[facility] LABCLIA [id number] [address] LABCLIA [id number] [place] [address] Hematocrit (Bld) [Volume fraction] 21.8 % Low 39.0-51.0 [facility] Comment on above: Order Comment: Speci men Type: BLOOD SPECIMENOrdering Facility: [facility] Address: [address] [place] [address] Performed By: #### 5 7021-8 ####[facility] LABCLIA [id number] [address] LABCLIA [id number] [place] [address] Hemoglobin (Bld) [Mass/Vol] 6.9 g/dL Low 13.0-17.0 [facility] Comment on above: Order Comment: Speci men Type: BLOOD SPECIMENOrdering Facility: [facility] Address: [address] [address] Performed By: #### 5 7021-8 ####[facility] LABCLIA [id number] [address] LABCLIA [id number] [place] [address] Lymphocytes (Bld) [#/Vol] 1.08 10*3/uL Normal 1.00-4.00 [facility] Comment on above: Order Comment: Speci men Type: BLOOD SPECIMENOrdering Facility: [facility] Address: [address] [place] [address] Performed By: #### 5 7021-8 ####[facility] LABCLIA [id number] [address] LABCLIA [id number] [place] [address] Lymphocytes/100 WBC (Bld) 37.0 % Normal [facility] Comment on above: Order Comment: Speci men Type: BLOOD SPECIMENOrdering Facility: [facility] Address: [address] [place] [address] Performed By: #### 5 7021-8 ####[facility] LABCLIA [id number] [address] LABCLIA [id number] [place] [address] MCH (RBC) [Entitic mass] 30.5 pg Normal 26.0-34.0 [facility] Comment on above: Order Comment: Speci men Type: BLOOD SPECIMENOrdering Facility: [facility] Address: [address] [place] [address] Performed By: #### 5 7021-8 ####[facility] LABCLIA [id number] [address] LABCLIA [id number] [place] [address] MCHC (RBC) [Mass/Vol] 31.7 g/dL Normal 30.5-36.0 [facility] Comment on above: Order Comment: Speci men Type: BLOOD SPECIMENOrdering Facility: [facility] Address: [address] [place] [address] Performed By: #### 5 7021-8 ####[facility] LABCLIA [id number] [address] LABCLIA [id number] [place] [address] MCV (RBC) [Entitic vol] 96.5 fL Normal 80.0-100.0 [facility] Comment on above: Order Comment: Speci men Type: BLOOD SPECIMENOrdering Facility: [facility] Address: [address] [place], [place] [address] Performed By: #### 5 7021-8 ####[facility] LABCLIA [id number] [address] LABIA [id number] [place] [address] Metamyelocytes/100 WBC (Bld) 4.0 % Normal [facility] Comment on above: Order Comment: Speci men Type: BLOOD SPECIMENOrdering Facility: [facility] Address: [address] [place], [place] [address] Performed By: #### 5 7021-8 ####[facility] LABCLIA [id number] [address] LABCLIA [id number] [place] [address] Monocytes (Bld) [#/Vol] 0.44 10*3/uL Normal <0.87 [facility] Comment on above: Order Comment: Speci men Type: BLOOD SPECIMENOrdering Facility: [facility] Address: [address] [place] [address] Performed By: #### 5 7021-8 ####[facility] LABCLIA [id number] [address] LABCLIA [id number] [place] [address] Monocytes/100 WBC (Bld) 15.0 % Normal [facility] Comment on above: Order Comment: Speci men Type: BLOOD SPECIMENOrdering Facility: [facility] Address: [address] [place] [address] Performed By: #### 5 7021-8 ####[facility] LABCLIA [id number] [address] LABCLIA [id number] [place] [address] Neutrophils (Bld) [#/Vol] 1.17 10*3/uL Low 1.45-7.50 [facility] Comment on above: Order Comment: Speci men Type: BLOOD SPECIMENOrdering Facility: [facility] Address: [address] [place], [place] [address] Performed By: #### 5 7021-8 ####[facility] LABCLIA [id number] [address] LABCLIA [id number] [place] [address] Neutrophils/100 WBC (Bld) 40.0 % Normal [facility] Comment on above: Order Comment: Speci men Type: BLOOD SPECIMENOrdering Facility: [facility] Address: [address] [place] [address] Performed By: #### 5 7021-8 ####[facility] LABCLIA [id number] [address] LABCLIA [id number] [place] [address] Nucleated RBC (Bld) [#/Vol] 0.06 10*3/uL High <0.01 [facility] Comment on above: Order Comment: Speci men Type: BLOOD SPECIMENOrdering Facility: [facility] Address: [address] [place] [address] Performed By: #### 5 7021-8 ####[facility] LABCLIA [id number] [address] LABCLIA [id number] [place] [address] Nucleated RBC/100 WBC (Bld) [Ratio] 2.0 /100 WBC Normal [facility] Comment on above: Order Comment: Speci men Type: BLOOD SPECIMENOrdering Facility: [facility] Address: [address] [place] [address] Performed By: #### 5 7021-8 ####[facility] LABCLIA [id number] [address] LABCLIA [id number] [place] [address] Ovalocytes LM Ql (Bld) Few Normal [facility] Comment on above: Order Comment: Speci men Type: BLOOD SPECIMENOrdering Facility: [facility] Address: [address] [place] [address] Performed By: #### 5 7021-8 ####[facility] LABCLIA [id number] [address] LABCLIA [id number] [place] [address] Platelet mean volume (Bld) [Entitic vol] Normal [facility] Comment on above: Order Comment: Speci men Type: BLOOD SPECIMENOrdering Facility: [facility] Address: [address] [place] [address] Result Comment: Unab le to report Performed By: #### 5 7021-8 ####[facility] LABCLIA [id number] [address] LABCLIA [id number] [place] [address] Platelets (Bld) [#/Vol] 55 10*3/uL Low 150-400 [facility] Comment on above: Order Comment: Speci men Type: BLOOD SPECIMENOrdering Facility: [facility] Address: [address] [place] [address] Performed By: #### 5 7021-8 ####[facility] LABCLIA [id number] [address] LABCLIA [id number] [place] [address] Platelets Estimate (Bld) [#/Vol] Decreased Normal [facility] Comment on above: Order Comment: Speci men Type: BLOOD SPECIMENOrdering Facility: [facility] Address: [address] [place] [address] Performed By: #### 5 7021-8 ####[facility] LABCLIA [id number] [address] LABCLIA [id number] [place] [address] Polychromasia LM Ql (Bld) Slight Normal [facility] Comment on above: Order Comment: Speci men Type: BLOOD SPECIMENOrdering Facility: [facility] Address: [address] [place] [address] Performed By: #### 5 7021-8 ####[facility] LABCLIA [id number] [address] LABCLIA [id number] [place] [address] RBC (Bld) [#/Vol] 2.26 10*6/uL Low 4.20-6.00 [facility] Comment on above: Order Comment: Speci men Type: BLOOD SPECIMENOrdering Facility: [facility] Address: [address] [place] [address] Performed By: #### 5 7021-8 ####[facility] LABCLIA [id number] [address] LABCLIA [id number] [place] [address] RED CELL MORPH Reviewed: see result s of individual morphologies Normal [facility] Comment on above: Order Comment: Speci men Type: BLOOD SPECIMENOrdering Facility: [facility] Address: [address] [place] [address] Performed By: #### 5 7021-8 ####[facility] LABCLIA [id number] [address] LABCLIA [id number] [place] [address] WBC (Bld) [#/Vol] 2.93 10*3/uL Low 3.70-11.00 [facility] Comment on above: Order Comment: Speci men Type: BLOOD SPECIMENOrdering Facility: [facility] Address: [address] [place] [address] Result Comment: Chec ked and Verified No clot detected. Performed By: #### 5 7021-8 ####[facility] LABCLIA [id number] [place] [id number] [facility] LABCLIA [id number] [place] [address] WBC Left Shift Ql (Bld) Present Normal [facility] Comment on above: Order Comment: Speci men Type: BLOOD SPECIMENOrdering Facility: [facility] Address: [address] [place] [address] Performed By: #### 5 7021-8 ####[facility] LABCLIA [id number] [address] LABCLIA [id number] [place] [address] CNPNon 09-04-2022 CNPN Normal [facility] Comprehensive metabolic 2000 panelon 09-04-2022 Albumin [Mass/Vol] 3.9 g/dL Normal 3.9-4.9 [facility] Comment on above: Order Comment: Speci men Type: BLOOD SPECIMENOrdering Facility: [facility] Address: [address] [address] Performed By: #### 2 4323-8 ####[facility] LABCLIA [id number] [place] [address] ALP [Catalytic activity/Vol] 157 U/L High 38-113 [facility] Comment on above: Order Comment: Speci men Type: BLOOD SPECIMENOrdering Facility: [facility] Address: [address] [address] Performed By: #### 2 4323-8 ####[facility] LABIA [id number] [place] [address] ALT [Catalytic activity/Vol] 53 U/L Normal 10-54 [facility] Comment on above: Order Comment: Speci men Type: BLOOD SPECIMENOrdering Facility: [facility] Address: [address] [address] Performed By: #### 2 4323-8 ####[facility] LABCLIA [id number] [place] [address] Anion gap [Moles/Vol] 11 mmol/L Normal 9-18 [facility] Comment on above: Order Comment: Speci men Type: BLOOD SPECIMENOrdering Facility: [facility] Address: [address] [place] [address] Performed By: #### 2 4323-8 ####[facility] LABCLIA [id number] [place] [address] AST [Catalytic activity/Vol] 29 U/L Normal 14-40 [facility] Comment on above: Order Comment: Speci men Type: BLOOD SPECIMENOrdering Facility: [facility] Address: [address] [place] [address] Performed By: #### 2 4323-8 ####[facility] LABCLIA [id number] [place] [address] Bilirubin [Mass/Vol] 1.2 mg/dL Normal 0.2-1.3 [facility] Comment on above: Order Comment: Speci men Type: BLOOD SPECIMENOrdering Facility: [facility] Address: [address] [place] [address] Performed By: #### 2 4323-8 ####[facility] LABCLIA [id number] [place] [address] Calcium [Mass/Vol] 9.4 mg/dL Normal 8.5-10.2 [facility] Comment on above: Order Comment: Speci men Type: BLOOD SPECIMENOrdering Facility: [facility] Address: [address] [place] [address] Performed By: #### 2 4323-8 ####[facility] LABCLIA [id number] [place] [address] Chloride [Moles/Vol] 97 mmol/L Normal 97-105 [facility] Comment on above: Order Comment: Speci men Type: BLOOD SPECIMENOrdering Facility: [facility] Address: [address] [address] Performed By: #### 2 4323-8 ####[facility] LABCLIA [id number] [place] [address] CO2 [Moles/Vol] 33 mmol/L High 22-30 [facility] Comment on above: Order Comment: Speci men Type: BLOOD SPECIMENOrdering Facility: [facility] Address: [address] [address] Performed By: #### 2 4323-8 ####[facility] LABCLIA [id number] [place] [address] Creatinine [Mass/Vol] 1.40 mg/dL High 0.73-1.22 [facility] Comment on above: Order Comment: Speci men Type: BLOOD SPECIMENOrdering Facility: [facility] Address: [address] [place] [address] Performed By: #### 2 4323-8 ####[facility] LABCLIA [id number] [place] [address] ESTIMATED GLOMERULAR FILTRATION RATE 50 mL/min/1.73m??? Low >=60 [facility] Comment on above: Order Comment: Speci men Type: BLOOD SPECIMENOrdering Facility: [facility] Address: [address] [place] [address] Result Comment: Faye mated Glomerular Filtration Rate [...] actual GFR. Performed By: #### 2 4323-8 ####[facility] LABCLIA [id number] [place] [address] Glucose [Mass/Vol] 152 mg/dL High 74-99 [facility] Comment on above: Order Comment: Speci men Type: BLOOD SPECIMENOrdering Facility: [facility] Address: [address] [place] [address] Result Comment: The [place] [employer] (ADA) provides guidance for cutoff [...] Standards of Medical Care in Diabetes 2016, [place] [employer]. Diabetes Care. 2016.39(Suppl 1). Performed By: #### 2 4323-8 ####[facility] LABCLIA [id number] [place] [address] Potassium [Moles/Vol] 3.7 mmol/L Normal 3.7-5.1 [facility] Comment on above: Order Comment: Speci [facility] Type: BLOOD SPECIMENOrdering Facility: [facility] Address: [address] [place] [address] Performed By: #### 2 4323-8 ####[facility] LABCLIA [id number] [place] [address] Protein [Mass/Vol] 6.5 g/dL Normal 6.3-8.0 [facility] Comment on above: Order Comment: Speci men Type: BLOOD SPECIMENOrdering Facility: [facility] Address: [address] [place] [address] Performed By: #### 2 4323-8 ####[facility] LABCLIA [id number] [place] [address] Sodium [Moles/Vol] 141 mmol/L Normal 136-144 [facility] Comment on above: Order Comment: Speci men Type: BLOOD SPECIMENOrdering Facility: [facility] Address: [address] [place] [address] Performed By: #### 2 4323-8 ####[facility] LABCLIA [id number] [place] [address] Urea nitrogen [Mass/Vol] 22 mg/dL Normal 9-24 [facility] Comment on above: Order Comment: Speci men Type: BLOOD SPECIMENOrdering Facility: [facility] Address: [address] [place] [address] Performed By: #### 2 4323-8 ####[facility] LABCLIA [id number] [place] [address] CBC W Auto Differential pane l (Bld)on 08-28-2022 Basophils (Bld) [#/Vol] 10*3/uL Normal <0.11 [facility] Comment on above: Order Comment: Speci men Type: BLOOD SPECIMENOrdering Facility: [facility] Address: [address] [place] [address] Performed By: #### 5 7021-8 ####[facility] LABCLIA [id number] [place] [address] Basophils/100 WBC (Bld) 1.0 % Normal [facility] Comment on above: Order Comment: Speci men Type: BLOOD SPECIMENOrdering Facility: [facility] Address: [address] [place] [address] Performed By: #### 5 7021-8 ####[facility] LABCLIA [id number] [place] [address] Differential cell count method Nom (Bld) Auto Normal [facility] [facility] Comment on above: Order Comment: Speci men Type: BLOOD SPECIMENOrdering Facility: [facility] Address: [address] [place] [address] Performed By: #### 5 7021-8 ####[facility] LABCLIA [id number] [place] [address] Eosinophils (Bld) [#/Vol] 10*3/uL Normal <0.46 [facility] Comment on above: Order Comment: Speci men Type: BLOOD SPECIMENOrdering Facility: [facility] Address: [address] [place] [address] Performed By: #### 5 7021-8 ####[facility] LABCLIA [id number] [place] [address] Eosinophils/100 WBC (Bld) 0.5 % Normal [facility] Comment on above: Order Comment: Speci men Type: BLOOD SPECIMENOrdering Facility: [facility] Address: [address] [place] [address] Performed By: #### 5 7021-8 ####[facility] LABIA [id number] [place] [address] Erythrocyte distribution width (RBC) [Ratio] 15.9 % High 11.5-15.0 [facility] Comment on above: Order Comment: Speci men Type: BLOOD SPECIMENOrdering Facility: [facility] Address: [address] [place] [address] Performed By: #### 5 7021-8 ####[facility] LABIA [id number] [place] [address] Hematocrit (Bld) [Volume fraction] 25.6 % Low 39.0-51.0 [facility] Comment on above: Order Comment: Speci men Type: BLOOD SPECIMENOrdering Facility: [facility] Address: [address] [place] [address] Performed By: #### 5 7021-8 ####[facility] LABIA [id number] [place] [address] Hemoglobin (Bld) [Mass/Vol] 8.1 g/dL Low 13.0-17.0 [facility] Comment on above: Order Comment: Speci men Type: BLOOD SPECIMENOrdering Facility: [facility] Address: [address] [place] [address] Performed By: #### 5 7021-8 ####[facility] LABCLIA [id number] [place] [address] Immature granulocytes (Bld) [#/Vol] 0.03 10*3/uL Normal <0.10 [facility] Comment on above: Order Comment: Speci men Type: BLOOD SPECIMENOrdering Facility: [facility] Address: [address] [place] [address] Performed By: #### 5 7021-8 ####[facility] LABCLIA [id number] [place] [address] Immature granulocytes/100 WBC (Bld) 1.5 % Normal [facility] Comment on above: Order Comment: Speci men Type: BLOOD SPECIMENOrdering Facility: [facility] Address: [address] [place] [address] Performed By: #### 5 7021-8 ####[facility] LABCLIA [id number] [place] [address] Lymphocytes (Bld) [#/Vol] 0.59 10*3/uL Low 1.00-4.00 [facility] Comment on above: Order Comment: Speci men Type: BLOOD SPECIMENOrdering Facility: [facility] Address: [address] [place] [address] Performed By: #### 5 7021-8 ####[facility] LABCLIA [id number] [place] [address] Lymphocytes/100 WBC (Bld) 28.8 % Normal [facility] Comment on above: Order Comment: Speci men Type: BLOOD SPECIMENOrdering Facility: [facility] Address: [address] [place] [address] Performed By: #### 5 7021-8 ####[facility] LABCLIA [id number] [place] [address] MCH (RBC) [Entitic mass] 30.2 pg Normal 26.0-34.0 [facility] Comment on above: Order Comment: Speci men Type: BLOOD SPECIMENOrdering Facility: [facility] Address: [address] [address] Performed By: #### 5 7021-8 ####[facility] LABCLIA [id number] [place] [address] MCHC (RBC) [Mass/Vol] 31.6 g/dL Normal 30.5-36.0 [facility] Comment on above: Order Comment: Speci men Type: BLOOD SPECIMENOrdering Facility: [facility] Address: [address] [place] [address] Performed By: #### 5 7021-8 ####[facility] LABIA [id number] [place] [address] MCV (RBC) [Entitic vol] 95.5 fL Normal 80.0-100.0 [facility] Comment on above: Order Comment: Speci men Type: BLOOD SPECIMENOrdering Facility: [facility] Address: [address] [place] [address] Performed By: #### 5 7021-8 ####[facility] LABIA [id number] [place] [address] Monocytes (Bld) [#/Vol] 0.26 10*3/uL Normal <0.87 [facility] Comment on above: Order Comment: Speci men Type: BLOOD SPECIMENOrdering Facility: [facility] Address: [address] [place] [address] Performed By: #### 5 7021-8 ####[facility] LABCLIA [id number] [place] [address] Monocytes/100 WBC (Bld) 12.7 % Normal [facility] Comment on above: Order Comment: Speci men Type: BLOOD SPECIMENOrdering Facility: [facility] Address: [address] [place] [address] Performed By: #### 5 7021-8 ####[facility] LABCLIA [id number] [place] [address] Neutrophils (Bld) [#/Vol] 1.14 10*3/uL Low 1.45-7.50 [facility] Comment on above: Order Comment: Speci men Type: BLOOD SPECIMENOrdering Facility: [facility] Address: [address] [place] [address] Performed By: #### 5 7021-8 ####[facility] LABCLIA [id number] [place] [address] Neutrophils/100 WBC (Bld) 55.5 % Normal [facility] Comment on above: Order Comment: Speci men Type: BLOOD SPECIMENOrdering Facility: [facility] Address: [address] [place] [address] Performed By: #### 5 7021-8 ####[facility] LABCLIA [id number] [place] [address] Nucleated RBC (Bld) [#/Vol] 10*3/uL Normal <0.01 [facility] Comment on above: Order Comment: Speci men Type: BLOOD SPECIMENOrdering Facility: [facility] Address: [address] [place] [address] Performed By: #### 5 7021-8 ####[facility] LABCLIA [id number] [place] [address] Nucleated RBC/100 WBC (Bld) [Ratio] 0.0 /100 WBC Normal [facility] Comment on above: Order Comment: Speci men Type: BLOOD SPECIMENOrdering Facility: [facility] Address: [address] [place] [address] Performed By: #### 5 7021-8 ####[facility] LABCLIA [id number] [place] [address] Platelet mean volume (Bld) [Entitic vol] 14.7 fL High 9.0-12.7 [facility] Comment on above: Order Comment: Speci men Type: BLOOD SPECIMENOrdering Facility: [facility] Address: [address] [address] Performed By: #### 5 7021-8 ####[facility] LABIA [id number] [place] [address] Platelets (Bld) [#/Vol] 43 10*3/uL Low 150-400 [facility] Comment on above: Order Comment: Speci men Type: BLOOD SPECIMENOrdering Facility: [facility] Address: [address] [place] [address] Result Comment: Resu lts checked and verified.No clot detected. Performed By: #### 5 7021-8 ####[facility] LABIA [id number] [place] [address] RBC (Bld) [#/Vol] 2.68 10*6/uL Low 4.20-6.00 [facility] Comment on above: Order Comment: Speci men Type: BLOOD SPECIMENOrdering Facility: [facility] Address: [address] [place] [address] Performed By: #### 5 7021-8 ####[facility] LABIA [id number] [place] [address] WBC (Bld) [#/Vol] 2.05 10*3/uL Low 3.70-11.00 [facility] Comment on above: Order Comment: Speci men Type: BLOOD SPECIMENOrdering Facility: [facility] Address: [address] [place] [address] Performed By: #### 5 7021-8 ####[facility] LABIA [id number] [place] [address] CNOVSPon 08-28-2022 CNOVSP Normal [facility] Comprehensive metabolic 2000 panelon 08-28-2022 Albumin [Mass/Vol] 3.8 g/dL Low 3.9-4.9 [facility] Comment on above: Order Comment: Speci men Type: BLOOD SPECIMENOrdering Facility: [facility] Address: [address] [place] [address] Performed By: #### 2 4323-8 ####[facility] LABCLIA [id number] [place] [address] ALP [Catalytic activity/Vol] 158 U/L High 38-113 [facility] Comment on above: Order Comment: Speci men Type: BLOOD SPECIMENOrdering Facility: [facility] Address: [address] [place] [address] Performed By: #### 2 4323-8 ####[facility] LABCLIA [id number] [place] [address] ALT [Catalytic activity/Vol] 53 U/L Normal 10-54 [facility] Comment on above: Order Comment: Speci men Type: BLOOD SPECIMENOrdering Facility: [facility] Address: [address] [place] [address] Performed By: #### 2 4323-8 ####[facility] LABCLIA [id number] [place] [address] Anion gap [Moles/Vol] 9 mmol/L Normal 9-18 [facility] Comment on above: Order Comment: Speci men Type: BLOOD SPECIMENOrdering Facility: [facility] Address: [address] [place] [address] Performed By: #### 2 4323-8 ####[facility] LABCLIA [id number] [place] [address] AST [Catalytic activity/Vol] 27 U/L Normal 14-40 [facility] Comment on above: Order Comment: Speci men Type: BLOOD SPECIMENOrdering Facility: [facility] Address: [address] [place] [address] Performed By: #### 2 4323-8 ####[facility] LABCLIA [id number] [place] [address] Bilirubin [Mass/Vol] 1.0 mg/dL Normal 0.2-1.3 [facility] Comment on above: Order Comment: Speci men Type: BLOOD SPECIMENOrdering Facility: [facility] Address: [address] [address] Performed By: #### 2 4323-8 ####[facility] LABCLIA [id number] [place] [address] Calcium [Mass/Vol] 9.1 mg/dL Normal 8.5-10.2 [facility] Comment on above: Order Comment: Speci men Type: BLOOD SPECIMENOrdering Facility: [facility] Address: [address] [address] Performed By: #### 2 4323-8 ####[facility] LABCLIA [id number] [place] [address] Chloride [Moles/Vol] 102 mmol/L Normal 97-105 [facility] Comment on above: Order Comment: Speci men Type: BLOOD SPECIMENOrdering Facility: [facility] Address: [address] [address] Performed By: #### 2 4323-8 ####[facility] LABCLIA [id number] [place] [address] CO2 [Moles/Vol] 34 mmol/L High 22-30 [facility] Comment on above: Order Comment: Speci men Type: BLOOD SPECIMENOrdering Facility: [facility] Address: [address] [address] Performed By: #### 2 4323-8 ####[facility] LABCLIA [id number] [place] [address] Creatinine [Mass/Vol] 1.47 mg/dL High 0.73-1.22 [facility] Comment on above: Order Comment: Speci men Type: BLOOD SPECIMENOrdering Facility: [facility] Address: [address] [address] Performed By: #### 2 4323-8 ####[facility] LABCLIA [id number] [place] [address] ESTIMATED GLOMERULAR FILTRATION RATE 47 mL/min/1.73m??? Low >=60 [facility] Comment on above: Order Comment: Davi avendaño Type: BLOOD SPECIMENOrdering Facility: [facility] Address: [address] [place], [place] [address] Result Comment: Faye mated Glomerular Filtration Rate [...] actual GFR. Performed By: #### 2 4323-8 ####[facility] LABCLIA [id number] [place] [address] Glucose [Mass/Vol] 126 mg/dL High 74-99 [facility] Comment on above: Order Comment: Davi avendaño Type: BLOOD SPECIMENOrdering Facility: [facility] Address: [address] [place] [address] Result Comment: The [place] [employer] (ADA) provides guidance for cutoff [...] Standards of Medical Care in Diabetes 2016, [place] [employer]. Diabetes Care. 2016.39(Suppl 1). Performed By: #### 2 4323-8 ####[facility] LABCLIA [id number] [place] [address] Potassium [Moles/Vol] 3.5 mmol/L Low 3.7-5.1 [facility] Comment on above: Order Comment: Davi avendaño Type: BLOOD SPECIMENOrdering Facility: [facility] Address: [address] [address] Performed By: #### 2 4323-8 ####[facility] LABCLIA [id number] [place] [address] Protein [Mass/Vol] 6.5 g/dL Normal 6.3-8.0 [facility] Comment on above: Order Comment: Speci men Type: BLOOD SPECIMENOrdering Facility: [facility] Address: [address] [place] [address] Performed By: #### 2 4323-8 ####[facility] LABCLIA [id number] [place] [address] Sodium [Moles/Vol] 145 mmol/L High 136-144 [facility] Comment on above: Order Comment: Speci men Type: BLOOD SPECIMENOrdering Facility: [facility] Address: [address] [place] [address] Performed By: #### 2 4323-8 ####[facility] LABCLIA [id number] [place] [address] Urea nitrogen [Mass/Vol] 23 mg/dL Normal 9-24 [facility] Comment on above: Order Comment: Speci men Type: BLOOD SPECIMENOrdering Facility: [facility] Address: [address] [place] [address] Performed By: #### 2 4323-8 ####[facility] LABCLIA [id number] [place] [address] CNPNon 08-26-2022 CNPN Normal [facility] PRBC LEUKOREDUCEDon 08-24-19 ABO and Rh group Nom (Bld) Cross Match Result Compatible Unit Blood Type O Pos Unit Number [id number] Status Information Transfused Product ID Red Blood Cells Product Code [id number] Cross Match Result Compatible Unit Blood Type O Pos Unit Number [id number] Status Information Transfused Product ID Red Blood Cells Product Code [id number] Normal [facility] Comment on above: Performed By: #### T NS, PRBC #### [facility] [address] [address] [address] Benito To ABO and Rh group Nom (Bld) Cross Match Result Compatible Unit Blood Type A Pos Unit Number [id number] Status Information Transfused Product ID Red Blood Cells Product Code [id number] Cross Match Result Compatible Unit Blood Type A Pos Unit Number [id number] Status Information Transfused Product ID Red Blood Cells Product Code [id number] Normal [facility] Comment on above: Performed By: #### P RBC, TNS #### [facility] [address] [address] [address] Benito To CNPNon 08-22-2022 CNPN Normal [facility] CBC W Auto Differential pane l (Bld)on 08-21-2022 Anisocytosis Ql (Bld) Present Normal [facility] Comment on above: Order Comment: Speci men Type: BLOOD SPECIMENOrdering Facility: [facility] Address: [address] [place] [address] Performed By: #### 5 7021-8 ####[facility] LABCLIA [id number] [address] LABCLIA [id number] [place] [address] Basophils (Bld) [#/Vol] 0.06 10*3/uL Normal <0.11 [facility] Comment on above: Order Comment: Speci men Type: BLOOD SPECIMENOrdering Facility: [facility] Address: [address] [place] [address] Performed By: #### 5 7021-8 ####[facility] LABCLIA [id number] [address] LABCLIA [id number] [place] [address] Basophils/100 WBC (Bld) 3.0 % Normal [facility] Comment on above: Order Comment: Speci men Type: BLOOD SPECIMENOrdering Facility: [facility] Address: [address] [place] [address] Performed By: #### 5 7021-8 ####[facility] LABCLIA [id number] [address] LABCLIA [id number] [place] [address] DYSPLASTIC PMNS Occasional Normal [facility] Comment on above: Order Comment: Speci men Type: BLOOD SPECIMENOrdering Facility: [facility] Address: [address] [place] [address] Performed By: #### 5 7021-8 ####[facility] LABCLIA [id number] [address] LABCLIA [id number] [place] [address] Eosinophils (Bld) [#/Vol] 0.02 10*3/uL Normal <0.46 [facility] Comment on above: Order Comment: Speci men Type: BLOOD SPECIMENOrdering Facility: [facility] Address: [address] [place] [address] Performed By: #### 5 7021-8 ####[facility] LABCLIA [id number] [address] LABCLIA [id number] [place] [address] Eosinophils/100 WBC (Bld) 1.0 % Normal [facility] Comment on above: Order Comment: Speci men Type: BLOOD SPECIMENOrdering Facility: [facility] Address: [address] [place] [address] Performed By: #### 5 7021-8 ####[facility] LABCLIA [id number] [address] [address] [facility] LABCLIA [id number] [place] [address] Erythrocyte distribution width (RBC) [Ratio] 15.9 % High 11.5-15.0 [facility] Comment on above: Order Comment: Speci men Type: BLOOD SPECIMENOrdering Facility: [facility] Address: [address] [place] [address] Performed By: #### 5 7021-8 ####[facility] LABIA [id number] [address] LABCLIA [id number] [place] [address] Hematocrit (Bld) [Volume fraction] 24.2 % Low 39.0-51.0 [facility] Comment on above: Order Comment: Speci men Type: BLOOD SPECIMENOrdering Facility: [facility] Address: [address] [place] [address] Performed By: #### 5 7021-8 ####[facility] LABCLIA [id number] [address] LABCLIA [id number] [place] [address] Hemoglobin (Bld) [Mass/Vol] 7.7 g/dL Low 13.0-17.0 [facility] Comment on above: Order Comment: Speci men Type: BLOOD SPECIMENOrdering Facility: [facility] Address: [address] [place], [place] [address] Performed By: #### 5 7021-8 ####[facility] LABCLIA [id number] [address] LABIA [id number] [place] [address] HYPOGRANULATED PMNS Occasional Normal [facility] Comment on above: Order Comment: Speci men Type: BLOOD SPECIMENOrdering Facility: [facility] Address: [address] [place], [place] [address] Performed By: #### 5 7021-8 ####[facility] LABCLIA [id number] [address] LABCLIA [id number] [place] [address] Lymphocytes (Bld) [#/Vol] 0.55 10*3/uL Low 1.00-4.00 [facility] Comment on above: Order Comment: Speci men Type: BLOOD SPECIMENOrdering Facility: [facility] Address: [address] [place] [address] Performed By: #### 5 7021-8 ####[facility] LABCLIA [id number] [address] LABCLIA [id number] [place] [address] Lymphocytes/100 WBC (Bld) 28.0 % Normal [facility] Comment on above: Order Comment: Speci men Type: BLOOD SPECIMENOrdering Facility: [facility] Address: [address] [place] [address] Performed By: #### 5 7021-8 ####[facility] LABCLIA [id number] [address] LABCLIA [id number] [place] [address] MCH (RBC) [Entitic mass] 30.4 pg Normal 26.0-34.0 [facility] Comment on above: Order Comment: Speci men Type: BLOOD SPECIMENOrdering Facility: [facility] Address: [address] [place] [address] Performed By: #### 5 7021-8 ####[facility] LABCLIA [id number] [address] LABCLIA [id number] [place] [address] MCHC (RBC) [Mass/Vol] 31.8 g/dL Normal 30.5-36.0 [facility] Comment on above: Order Comment: Speci men Type: BLOOD SPECIMENOrdering Facility: [facility] Address: [address] [place] [address] Performed By: #### 5 7021-8 ####[facility] LABCLIA [id number] [address] LABIA [id number] [place] [address] MCV (RBC) [Entitic vol] 95.7 fL Normal 80.0-100.0 [facility] Comment on above: Order Comment: Speci men Type: BLOOD SPECIMENOrdering Facility: [facility] Address: [address] [place] [address] Performed By: #### 5 7021-8 ####[facility] LABCLIA [id number] [address] LABCLIA [id number] [place] [address] Metamyelocytes/100 WBC (Bld) 2.0 % Normal [facility] Comment on above: Order Comment: Speci men Type: BLOOD SPECIMENOrdering Facility: [facility] Address: [address] [place], [place] [address] Performed By: #### 5 7021-8 ####[facility] LABCLIA [id number] [address] LABCLIA [id number] [place] [address] Monocytes (Bld) [#/Vol] 0.24 10*3/uL Normal <0.87 [facility] Comment on above: Order Comment: Speci men Type: BLOOD SPECIMENOrdering Facility: [facility] Address: [address] [place], [place] [address] Performed By: #### 5 7021-8 ####[facility] LABCLIA [id number] [address] LABCLIA [id number] [place] [address] Monocytes/100 WBC (Bld) 12.0 % Normal [facility] Comment on above: Order Comment: Speci men Type: BLOOD SPECIMENOrdering Facility: [facility] Address: [address] [place] [address] Performed By: #### 5 7021-8 ####[facility] LABCLIA [id number] [address] LABCLIA [id number] [place] [address] MYELO% 3.0 % Normal [facility] Comment on above: Order Comment: Speci men Type: BLOOD SPECIMENOrdering Facility: [facility] Address: [address] [place] [address] Performed By: #### 5 7021-8 ####[facility] LABCLIA [id number] [address] LABCLIA [id number] [place] [address] Neutrophils (Bld) [#/Vol] 1.01 10*3/uL Low 1.45-7.50 [facility] Comment on above: Order Comment: Speci men Type: BLOOD SPECIMENOrdering Facility: [facility] Address: [address] [place], [place] [address] Performed By: #### 5 7021-8 ####[facility] LABCLIA [id number] [address] LABCLIA [id number] [place] [address] Neutrophils/100 WBC (Bld) 51.0 % Normal [facility] Comment on above: Order Comment: Speci men Type: BLOOD SPECIMENOrdering Facility: [facility] Address: [address] [place] [address] Performed By: #### 5 7021-8 ####[facility] LABCLIA [id number] [address] LABCLIA [id number] [place] [address] Nucleated RBC (Bld) [#/Vol] 10*3/uL Normal <0.01 [facility] Comment on above: Order Comment: Speci men Type: BLOOD SPECIMENOrdering Facility: [facility] Address: [address] [place] [address] Performed By: #### 5 7021-8 ####[facility] LABCLIA [id number] [address] LABCLIA [id number] [place] [address] Nucleated RBC/100 WBC (Bld) [Ratio] 0.0 /100 WBC Normal [facility] Comment on above: Order Comment: Speci men Type: BLOOD SPECIMENOrdering Facility: [facility] Address: [address] [place] [address] Performed By: #### 5 7021-8 ####[facility] LABCLIA [id number] [address] LABCLIA [id number] [place] [address] Ovalocytes LM Ql (Bld) Few Normal [facility] Comment on above: Order Comment: Speci men Type: BLOOD SPECIMENOrdering Facility: [facility] Address: [address] [place], [place] [address] Performed By: #### 5 7021-8 ####[facility] LABCLIA [id number] [address] LABCLIA [id number] [place] [address] Platelet mean volume (Bld) [Entitic vol] Normal [facility] Comment on above: Order Comment: Speci men Type: BLOOD SPECIMENOrdering Facility: [facility] Address: [address] [place] [address] Result Comment: Unab le to report Performed By: #### 5 7021-8 ####[facility] LABCLIA [id number] [address] LABCLIA [id number] [place] [address] Platelets (Bld) [#/Vol] 50 10*3/uL Low 150-400 [facility] Comment on above: Order Comment: Speci men Type: BLOOD SPECIMENOrdering Facility: [facility] Address: [address] [place] [address] Result Comment: Resu lt rechecked. No clot detected. Performed By: #### 5 7021-8 ####[facility] LABCLIA [id number] [address] LABCLIA [id number] [place] [address] Polychromasia LM Ql (Bld) Slight Normal [facility] Comment on above: Order Comment: Speci men Type: BLOOD SPECIMENOrdering Facility: [facility] Address: [address] [place] [address] Performed By: #### 5 7021-8 ####[facility] LABCLIA [id number] [address] LABCLIA [id number] [place] [address] RBC (Bld) [#/Vol] 2.53 10*6/uL Low 4.20-6.00 [facility] Comment on above: Order Comment: Speci men Type: BLOOD SPECIMENOrdering Facility: [facility] Address: [address] [place] [address] Performed By: #### 5 7021-8 ####[facility] LABCLIA [id number] [address] LABCLIA [id number] [place] [address] RED CELL MORPH Reviewed: see result s of individual morphologies Normal [facility] Comment on above: Order Comment: Speci men Type: BLOOD SPECIMENOrdering Facility: [facility] Address: [address] [place] [address] Performed By: #### 5 7021-8 ####[facility] LABCLIA [id number] [address] LABCLIA [id number] [place] [address] WBC (Bld) [#/Vol] 2.00 10*3/uL Low 3.70-11.00 [facility] Comment on above: Order Comment: Speci men Type: BLOOD SPECIMENOrdering Facility: [facility] Address: [address] [place] [address] Result Comment: Resu lt rechecked. No clot detected. Performed By: #### 5 7021-8 ####[facility] LABCLIA [id number] [address] LABCLIA [id number] [place] [address] WBC Left Shift Ql (Bld) Present Normal [facility] Comment on above: Order Comment: Speci men Type: BLOOD SPECIMENOrdering Facility: [facility] Address: [address] [place] [address] Performed By: #### 5 7021-8 ####[facility] LABCLIA [id number] [id number] [address] [facility] LABCLIA [id number] [place] [address] CNOVSPon 08-21-2022 CNOVSP Normal [facility] CNPNon 08-21-2022 CNPN Normal [facility] Comprehensive metabolic 2000 panelon 08-21-2022 Albumin [Mass/Vol] 4.0 g/dL Normal 3.9-4.9 [facility] Comment on above: Order Comment: Speci men Type: BLOOD SPECIMENOrdering Facility: [facility] Address: [address] [place] [address] Performed By: #### 2 4323-8 ####[facility] LABCLIA [id number] [place] [address] ALP [Catalytic activity/Vol] 146 U/L High 38-113 [facility] Comment on above: Order Comment: Speci men Type: BLOOD SPECIMENOrdering Facility: [facility] Address: [address] [address] Performed By: #### 2 4323-8 ####[facility] LABCLIA [id number] [place] [address] ALT [Catalytic activity/Vol] 46 U/L Normal 10-54 [facility] Comment on above: Order Comment: Speci men Type: BLOOD SPECIMENOrdering Facility: [facility] Address: [address] [address] Performed By: #### 2 4323-8 ####[facility] LABCLIA [id number] [place] [address] Anion gap [Moles/Vol] 12 mmol/L Normal 9-18 [facility] Comment on above: Order Comment: Speci men Type: BLOOD SPECIMENOrdering Facility: [facility] Address: [address] [address] Performed By: #### 2 4323-8 ####[facility] LABCLIA [id number] [place] [address] AST [Catalytic activity/Vol] 21 U/L Normal 14-40 [facility] Comment on above: Order Comment: Speci men Type: BLOOD SPECIMENOrdering Facility: [facility] Address: [address] [place] [address] Performed By: #### 2 4323-8 ####[facility] LABCLIA [id number] [place] [address] Bilirubin [Mass/Vol] 1.3 mg/dL Normal 0.2-1.3 [facility] Comment on above: Order Comment: Speci men Type: BLOOD SPECIMENOrdering Facility: [facility] Address: [address] [place] [address] Performed By: #### 2 4323-8 ####[facility] LABCLIA [id number] [place] [address] Calcium [Mass/Vol] 8.7 mg/dL Normal 8.5-10.2 [facility] Comment on above: Order Comment: Speci men Type: BLOOD SPECIMENOrdering Facility: [facility] Address: [address] [place] [address] Performed By: #### 2 4323-8 ####[facility] LABCLIA [id number] [place] [address] Chloride [Moles/Vol] 99 mmol/L Normal 97-105 [facility] Comment on above: Order Comment: Speci men Type: BLOOD SPECIMENOrdering Facility: [facility] Address: [address] [address] Performed By: #### 2 4323-8 ####[facility] LABCLIA [id number] [place] [address] CO2 [Moles/Vol] 32 mmol/L High 22-30 [facility] Comment on above: Order Comment: Speci men Type: BLOOD SPECIMENOrdering Facility: [facility] Address: [address] [place] [address] Performed By: #### 2 4323-8 ####[facility] LABCLIA [id number] [place] [address] Creatinine [Mass/Vol] 1.65 mg/dL High 0.73-1.22 [facility] Comment on above: Order Comment: Davi avendaño Type: BLOOD SPECIMENOrdering Facility: [facility] Address: [address] [place] [address] Performed By: #### 2 4323-8 ####[facility] LABCLIA [id number] [place] [address] ESTIMATED GLOMERULAR FILTRATION RATE 41 mL/min/1.73m??? Low >=60 [facility] Comment on above: Order Comment: Cristinai men Type: BLOOD SPECIMENOrdering Facility: [facility] Address: [address] [place] [address] Result Comment: Faye mated Glomerular Filtration Rate [...] actual GFR. Performed By: #### 2 4323-8 ####[facility] LABCLIA [id number] [place] [address] Glucose [Mass/Vol] 177 mg/dL High 74-99 [facility] Comment on above: Order Comment: Davi avendaño Type: BLOOD SPECIMENOrdering Facility: [facility] Address: [address] [place] [address] Result Comment: The [place] [employer] (ADA) provides guidance for cutoff [...] Standards of Medical Care in Diabetes 2016, [place] [employer]. Diabetes Care. 2016.39(Suppl 1). Performed By: #### 2 4323-8 ####[facility] LABCLIA [id number] [place] [address] Potassium [Moles/Vol] 3.5 mmol/L Low 3.7-5.1 [facility] Comment on above: Order Comment: Speci men Type: BLOOD SPECIMENOrdering Facility: [facility] Address: [address] [address] Performed By: #### 2 4323-8 ####[facility] LABCLIA [id number] [place] [address] Protein [Mass/Vol] 6.5 g/dL Normal 6.3-8.0 [facility] Comment on above: Order Comment: Speci men Type: BLOOD SPECIMENOrdering Facility: [facility] Address: [address] [address] Performed By: #### 2 4323-8 ####[facility] LABCLIA [id number] [place] [address] Sodium [Moles/Vol] 143 mmol/L Normal 136-144 [facility] Comment on above: Order Comment: Speci men Type: BLOOD SPECIMENOrdering Facility: [facility] Address: [address] [address] Performed By: #### 2 4323-8 ####[facility] LABCLIA [id number] [place] [address] Urea nitrogen [Mass/Vol] 28 mg/dL High 9-24 [facility] Comment on above: Order Comment: Speci men Type: BLOOD SPECIMENOrdering Facility: [facility] Address: [address] [address] Performed By: #### 2 4323-8 ####[facility] LABCLIA [id number] [place] [id number] HEMOGRAM AND PLATELon 2022 Hematocrit (Bld) [Volume fraction] 26.2 % Critically low 42.0-54.0 [facility] Comment on above: Performed By: #### T NS, PRBC #### [facility] [address] [place] [address] Dr. Benito To Hemoglobin (Bld) [Mass/Vol] 7.7 g/dL Critically low 14.0-18.0 [facility] Comment on above: Performed By: #### T NS, PRBC #### [facility] [address] [place] [address] Dr. Benito To MCH (RBC) [Entitic mass] 30.2 pg Normal 25.9-34.0 [facility] Comment on above: Performed By: #### T NS, PRBC #### [facility] [address] [place] [address] Dr. Benito To MCHC (RBC) [Mass/Vol] 29.4 g/dL Critically low 29.9-35.2 [facility] Comment on above: Performed By: #### T NS, PRBC #### [facility] [address] [place] [address] Dr. Benito To MCV (RBC) [Entitic vol] 102.7 fL Critically high 80.0-94.0 [facility] Comment on above: Performed By: #### T NS, PRBC #### [facility] [address] [place] [address] Dr. Benito To PLT 44 103/ul Critically low 150-450 [facility] Comment on above: Performed By: #### T NS, PRBC #### [facility] [address] [place] [address] Dr. Benito To RBC 2.55 106/ul Critically low 4.70-6.10 [facility] Comment on above: Performed By: #### T NS, PRBC #### [facility] [address] [place] [address] Dr. Benito To WBC 1.8 103/ul Critically low 4.0-11.0 [facility] Comment on above: Performed By: #### T NS, PRBC #### [facility] [address] [place], [place] [address] Dr. Benito To TYPE AND SCREENon 08-21-2022 TYPE AND SCREEN Negative Normal [facility] Comment on above: Performed By: #### T ZEHRA, PRBC #### [facility] [address] [place], [place] [address] Dr. Benito To CBC W Auto Differential pane l (Bld)on 08-14-2022 Anisocytosis Ql (Bld) Present Normal [facility] Comment on above: Order Comment: Speci men Type: BLOOD SPECIMENOrdering Facility: [facility] Address: [address] [place] [address] Performed By: #### 5 7021-8 ####[facility] LABCLIA [id number] [address] LABCLIA [id number] [place] [address] Basophils (Bld) [#/Vol] 0.06 10*3/uL Normal <0.11 [facility] Comment on above: Order Comment: Speci men Type: BLOOD SPECIMENOrdering Facility: [facility] Address: [address] [place] [address] Performed By: #### 5 7021-8 ####[facility] LABCLIA [id number] [address] LABCLIA [id number] [place] [address] Basophils/100 WBC (Bld) 3.0 % Normal [facility] Comment on above: Order Comment: Speci men Type: BLOOD SPECIMENOrdering Facility: [facility] Address: [address] [place] [address] Performed By: #### 5 7021-8 ####[facility] LABCLIA [id number] [place] [id number] [facility] LABCLIA [id number] [place] [address] Differential cell count method Nom (Bld) Manual Normal [facility] Comment on above: Order Comment: Speci men Type: BLOOD SPECIMENOrdering Facility: [facility] Address: [address] [place] [address] Performed By: #### 5 7021-8 ####[facility] LABCLIA [id number] [address] LABCLIA [id number] [place] [address] Eosinophils (Bld) [#/Vol] 0.04 10*3/uL Normal <0.46 [facility] Comment on above: Order Comment: Speci men Type: BLOOD SPECIMENOrdering Facility: [facility] Address: [address] [place] [address] Performed By: #### 5 7021-8 ####[facility] LABCLIA [id number] [address] LABCLIA [id number] [place] [address] Eosinophils/100 WBC (Bld) 2.0 % Normal [facility] Comment on above: Order Comment: Speci men Type: BLOOD SPECIMENOrdering Facility: [facility] Address: [address] [place] [address] Performed By: #### 5 7021-8 ####[facility] LABCLIA [id number] [address] LABCLIA [id number] [place] [address] Erythrocyte distribution width (RBC) [Ratio] 16.4 % High 11.5-15.0 [facility] Comment on above: Order Comment: Speci men Type: BLOOD SPECIMENOrdering Facility: [facility] Address: [address] [place] [address] Performed By: #### 5 7021-8 ####[facility] LABCLIA [id number] [address] LABCLIA [id number] [place] [address] Hematocrit (Bld) [Volume fraction] 23.6 % Low 39.0-51.0 [facility] Comment on above: Order Comment: Speci men Type: BLOOD SPECIMENOrdering Facility: [facility] Address: [address] [place] [address] Performed By: #### 5 7021-8 ####[facility] LABCLIA [id number] [address] LABCLIA [id number] [place] [address] Hemoglobin (Bld) [Mass/Vol] 7.3 g/dL Low 13.0-17.0 [facility] Comment on above: Order Comment: Speci men Type: BLOOD SPECIMENOrdering Facility: [facility] Address: [address] [place] [address] Performed By: #### 5 7021-8 ####[facility] LABCLIA [id number] [address] LABCLIA [id number] [place] [address] Lymphocytes (Bld) [#/Vol] 1.10 10*3/uL Normal 1.00-4.00 [facility] Comment on above: Order Comment: Speci men Type: BLOOD SPECIMENOrdering Facility: [facility] Address: [address] [place] [address] Performed By: #### 5 7021-8 ####[facility] LABCLIA [id number] [address] LABCLIA [id number] [place] [address] Lymphocytes/100 WBC (Bld) 56.0 % Normal [facility] Comment on above: Order Comment: Speci men Type: BLOOD SPECIMENOrdering Facility: [facility] Address: [address] [place] [address] Performed By: #### 5 7021-8 ####[facility] LABCLIA [id number] [address] LABCLIA [id number] [place] [address] MCH (RBC) [Entitic mass] 30.5 pg Normal 26.0-34.0 [facility] Comment on above: Order Comment: Speci men Type: BLOOD SPECIMENOrdering Facility: [facility] Address: [address] [place], [place] [address] Performed By: #### 5 7021-8 ####[facility] LABCLIA [id number] [address] LABCLIA [id number] [place] [address] MCHC (RBC) [Mass/Vol] 30.9 g/dL Normal 30.5-36.0 [facility] Comment on above: Order Comment: Speci men Type: BLOOD SPECIMENOrdering Facility: [facility] Address: [address] [place] [address] Performed By: #### 5 7021-8 ####[facility] LABCLIA [id number] [address] LABCLIA [id number] [place] [address] MCV (RBC) [Entitic vol] 98.7 fL Normal 80.0-100.0 [facility] Comment on above: Order Comment: Speci men Type: BLOOD SPECIMENOrdering Facility: [facility] Address: [address] [place] [address] Performed By: #### 5 7021-8 ####[facility] LABCLIA [id number] [address] LABCLIA [id number] [place] [address] Monocytes (Bld) [#/Vol] 0.12 10*3/uL Normal <0.87 [facility] Comment on above: Order Comment: Speci men Type: BLOOD SPECIMENOrdering Facility: [facility] Address: [address] [place] [address] Performed By: #### 5 7021-8 ####[facility] LABCLIA [id number] [address] LABCLIA [id number] [place] [address] Monocytes/100 WBC (Bld) 6.0 % Normal [facility] Comment on above: Order Comment: Speci men Type: BLOOD SPECIMENOrdering Facility: [facility] Address: [address] [place] [address] Performed By: #### 5 7021-8 ####[facility] LABCLIA [id number] [address] LABCLIA [id number] [place] [address] MYELO% 2.0 % Normal [facility] Comment on above: Order Comment: Speci men Type: BLOOD SPECIMENOrdering Facility: [facility] Address: [address] [place] [address] Performed By: #### 5 7021-8 ####[facility] LABCLIA [id number] [address] LABCLIA [id number] [place] [address] Neutrophils (Bld) [#/Vol] 0.63 10*3/uL Low 1.45-7.50 [facility] Comment on above: Order Comment: Speci men Type: BLOOD SPECIMENOrdering Facility: [facility] Address: [address] [place] [address] Performed By: #### 5 7021-8 ####[facility] LABCLIA [id number] [address] LABCLIA [id number] [place] [address] Neutrophils/100 WBC (Bld) 32.0 % Normal [facility] Comment on above: Order Comment: Speci men Type: BLOOD SPECIMENOrdering Facility: [facility] Address: [address] [place] [address] Performed By: #### 5 7021-8 ####[facility] LABCLIA [id number] [address] LABCLIA [id number] [place] [address] Nucleated RBC (Bld) [#/Vol] 10*3/uL Normal <0.01 [facility] Comment on above: Order Comment: Speci men Type: BLOOD SPECIMENOrdering Facility: [facility] Address: [address] [place] [address] Performed By: #### 5 7021-8 ####[facility] LABCLIA [id number] [address] LABIA [id number] [place] [address] Nucleated RBC/100 WBC (Bld) [Ratio] 0.0 /100 WBC Normal [facility] Comment on above: Order Comment: Speci men Type: BLOOD SPECIMENOrdering Facility: [facility] Address: [address] [place] [address], [place] [address] Performed By: #### 5 7021-8 ####[facility] LABCLIA [id number] [address] LABCLIA [id number] [place] [address] Ovalocytes LM Ql (Bld) Few Normal [facility] Comment on above: Order Comment: Speci men Type: BLOOD SPECIMENOrdering Facility: [facility] Address: [address] [place] [address] Performed By: #### 5 7021-8 ####[facility] LABCLIA [id number] [address] LABCLIA [id number] [place] [address] Platelet mean volume (Bld) [Entitic vol] 14.9 fL High 9.0-12.7 [facility] Comment on above: Order Comment: Speci men Type: BLOOD SPECIMENOrdering Facility: [facility] Address: [address] [place] [address] Performed By: #### 5 7021-8 ####[facility] LABCLIA [id number] [address] LABCLIA [id number] [place] [address] Platelets (Bld) [#/Vol] 73 10*3/uL Low 150-400 [facility] Comment on above: Order Comment: Speci men Type: BLOOD SPECIMENOrdering Facility: [facility] Address: [address] [place] [address] Performed By: #### 5 7021-8 ####[facility] LABCLIA [id number] [place] [address] [facility] LABCLIA [id number] [place] [address] Platelets Estimate (Bld) [#/Vol] Decreased Normal [facility] Comment on above: Order Comment: Speci men Type: BLOOD SPECIMENOrdering Facility: [facility] Address: [address] [place] [address] Performed By: #### 5 7021-8 ####[facility] LABCLIA [id number] [address] LABCLIA [id number] [place] [address] Polychromasia LM Ql (Bld) Slight Normal [facility] Comment on above: Order Comment: Speci men Type: BLOOD SPECIMENOrdering Facility: [facility] Address: [address] [place] [address] Performed By: #### 5 7021-8 ####[facility] LABCLIA [id number] [address] LABCLIA [id number] [place] [address] RBC (Bld) [#/Vol] 2.39 10*6/uL Low 4.20-6.00 [facility] Comment on above: Order Comment: Speci men Type: BLOOD SPECIMENOrdering Facility: [facility] Address: [address] [place] [address] Performed By: #### 5 7021-8 ####[facility] LABCLIA [id number] [address] LABCLIA [id number] [place] [address] RBC FRAGMENTS Few Abnormal None Seen [facility] Comment on above: Order Comment: Speci men Type: BLOOD SPECIMENOrdering Facility: [facility] Address: [address] [place] [address] Performed By: #### 5 7021-8 ####[facility] LABCLIA [id number] [address] LABCLIA [id number] [place] [address] RED CELL MORPH Reviewed: see result s of individual morphologies Normal [facility] Comment on above: Order Comment: Speci men Type: BLOOD SPECIMENOrdering Facility: [facility] Address: [address] [place] [address] Performed By: #### 5 7021-8 ####[facility] LABCLIA [id number] [address] LABCLIA [id number] [place] [id number] WBC (Bld) [#/Vol] 1.97 10*3/uL Low 3.70-11.00 [facility] Comment on above: Order Comment: Speci men Type: BLOOD SPECIMENOrdering Facility: [facility] Address: [address] [place] [address] Result Comment: No c lot detected.Results checked and verified. Performed By: #### 5 7021-8 ####[facility] LABCLIA [id number] [address] LABCLIA [id number] [place] [address] CNOVSPon 08-14-2022 CNOVSP Normal [facility] CNPNon 08-14-2022 CNPN Normal [facility] Comprehensive metabolic 2000 panelon 08-14-2022 Albumin [Mass/Vol] 3.9 g/dL Normal 3.9-4.9 [facility] Comment on above: Order Comment: Speci men Type: BLOOD SPECIMENOrdering Facility: [facility] Address: [address] [place] [address] Performed By: #### 2 4323-8 ####[facility] LABCLIA [id number] [place] [address] ALP [Catalytic activity/Vol] 144 U/L High 38-113 [facility] Comment on above: Order Comment: Speci men Type: BLOOD SPECIMENOrdering Facility: [facility] Address: [address] [address] Performed By: #### 2 4323-8 ####[facility] LABCLIA [id number] [place] [address] ALT [Catalytic activity/Vol] 50 U/L Normal 10-54 [facility] Comment on above: Order Comment: Speci men Type: BLOOD SPECIMENOrdering Facility: [facility] Address: [address] [place] [address] Performed By: #### 2 4323-8 ####[facility] LABCLIA [id number] [place] [address] Anion gap [Moles/Vol] 14 mmol/L Normal 9-18 [facility] Comment on above: Order Comment: Speci men Type: BLOOD SPECIMENOrdering Facility: [facility] Address: [address] [address] Performed By: #### 2 4323-8 ####[facility] LABCLIA [id number] [place] [address] AST [Catalytic activity/Vol] 22 U/L Normal 14-40 [facility] Comment on above: Order Comment: Speci men Type: BLOOD SPECIMENOrdering Facility: [facility] Address: [address] [address] Performed By: #### 2 4323-8 ####[facility] LABCLIA [id number] [place] [address] Bilirubin [Mass/Vol] 1.1 mg/dL Normal 0.2-1.3 [facility] Comment on above: Order Comment: Speci men Type: BLOOD SPECIMENOrdering Facility: [facility] Address: [address] [address] Performed By: #### 2 4323-8 ####[facility] LABCLIA [id number] [place] [address] Calcium [Mass/Vol] 9.3 mg/dL Normal 8.5-10.2 [facility] Comment on above: Order Comment: Speci men Type: BLOOD SPECIMENOrdering Facility: [facility] Address: [address] [place] [address] Performed By: #### 2 4323-8 ####[facility] LABCLIA [id number] [place] [address] Chloride [Moles/Vol] 104 mmol/L Normal 97-105 [facility] Comment on above: Order Comment: Speci men Type: BLOOD SPECIMENOrdering Facility: [facility] Address: [address] [place] [address] Performed By: #### 2 4323-8 ####[facility] LABCLIA [id number] [place] [address] CO2 [Moles/Vol] 30 mmol/L Normal 22-30 [facility] Comment on above: Order Comment: Speci men Type: BLOOD SPECIMENOrdering Facility: [facility] Address: [address] [place] [address] Performed By: #### 2 4323-8 ####[facility] LABCLIA [id number] [place] [address] Creatinine [Mass/Vol] 1.40 mg/dL High 0.73-1.22 [facility] Comment on above: Order Comment: Speci men Type: BLOOD SPECIMENOrdering Facility: [facility] Address: [address] [place] [address] Performed By: #### 2 4323-8 ####[facility] LABCLIA [id number] [place] [address] ESTIMATED GLOMERULAR FILTRATION RATE 50 mL/min/1.73m??? Low >=60 [facility] Comment on above: Order Comment: Speci men Type: BLOOD SPECIMENOrdering Facility: [facility] Address: [address] [id number] Result Comment: Faye mated Glomerular Filtration Rate [...] actual GFR. Performed By: #### 2 4323-8 ####[facility] LABCLIA [id number] [place] [address] Glucose [Mass/Vol] 199 mg/dL High 74-99 [facility] Comment on above: Order Comment: Davi avendaño Type: BLOOD SPECIMENOrdering Facility: [facility] Address: [address] [place] [address] Result Comment: The [place] [employer] (ADA) provides guidance for cutoff [...] Standards of Medical Care in Diabetes 2016, [place] [employer]. Diabetes Care. 2016.39(Suppl 1). Performed By: #### 2 4323-8 ####[facility] LABCLIA [id number] [place] [address] Potassium [Moles/Vol] 3.9 mmol/L Normal 3.7-5.1 [facility] Comment on above: Order Comment: Davi avendaño Type: BLOOD SPECIMENOrdering Facility: [facility] Address: [address] Performed By: #### 2 4323-8 ####[facility] LABCLIA [id number] [place] [address] Protein [Mass/Vol] 6.5 g/dL Normal 6.3-8.0 [facility] Comment on above: Order Comment: Speci men Type: BLOOD SPECIMENOrdering Facility: [facility] Address: [address] [place] [address] Performed By: #### 2 4323-8 ####[facility] LABCLIA [id number] [place] [address] Sodium [Moles/Vol] 148 mmol/L High 136-144 [facility] Comment on above: Order Comment: Speci men Type: BLOOD SPECIMENOrdering Facility: [facility] Address: [address] [place] [address] Performed By: #### 2 4323-8 ####[facility] LABCLIA [id number] [address] [place] [address] Urea nitrogen [Mass/Vol] 22 mg/dL Normal 9-24 [facility] Comment on above: Order Comment: Speci men Type: BLOOD SPECIMENOrdering Facility: [facility] Address: [address] [place] [address] Performed By: #### 2 4323-8 ####[facility] LABCLIA [id number] [place] [address] HEMOGRAM AND PLATELon 2022 Hematocrit (Bld) [Volume fraction] 22.4 % Critically low 42.0-54.0 [facility] Comment on above: Performed By: #### H H #### [facility] [address] [address] [address] Benito To Hemoglobin (Bld) [Mass/Vol] 7.2 g/dL Critically low 14.0-18.0 [facility] Comment on above: Performed By: #### H H #### [facility] [address] [place], [place] [address] Dr. Benito To MCH (RBC) [Entitic mass] 30.9 pg Normal 25.9-34.0 [facility] Comment on above: Performed By: #### H H #### [facility] [address] [address] [address] Benito To MCHC (RBC) [Mass/Vol] 32.1 g/dL Normal 29.9-35.2 [facility] Comment on above: Performed By: #### H H #### [facility] [address] [address] [address] Benito To MCV (RBC) [Entitic vol] 96.1 fL Critically high 80.0-94.0 [facility] Comment on above: Performed By: #### H H #### [facility] [address] [address] [address] Benito To PLT 59 103/ul Critically low 150-450 [facility] Comment on above: Performed By: #### H H #### [facility] [address] [address] [address] Benito To RBC 2.33 106/ul Critically low 4.70-6.10 [facility] Comment on above: Performed By: #### H H #### [facility] [address] [address] [address] Benito To WBC 1.8 103/ul Critically low 4.0-11.0 [facility] Comment on above: Performed By: #### H H #### [facility] [address] [address] [address] Benito To LDH SerPl-cCncon 08-14-2022 LDH [Catalytic activity/Vol] 207 U/L Normal 135-225 [facility] Comment on above: Order Comment: Speci men Type: BLOOD SPECIMENOrdering Facility: [facility] Address: [address] [place] [address] Performed By: #### 2 532-0 ####[facility] LABCLIA [id number] [place] [address] TYPE AND SCREENon 08-14-2022 TYPE AND SCREEN Negative Normal [facility] Comment on above: Performed By: #### P RBC, TNS #### [facility] [address] [address] [address] Benito To CNPNon 08-13-2022 CNPN Normal [facility] PRBC LEUKOREDUCEDon 08-12-19 PRBC LEUKOREDUCED Cross Match Result Compatible Unit Blood Type A Pos Unit Number [id number] Status Information Transfused Product ID Red Blood Cells Product Code [id number] Normal [facility] Comment on above: Performed By: #### P RBC, TNS #### [facility] [address] [address] [address] Benito To HEMOGLOBIN AND HEMATOCRITon 08-08-2022 Hematocrit (Bld) [Volume fraction] 23.4 % Critically low 42.0-54.0 [facility] Comment on above: Performed By: #### H H #### [facility] [address] [place] [address] Dr. Benito To Hemoglobin (Bld) [Mass/Vol] 7.0 g/dL Critically low 14.0-18.0 [facility] Comment on above: Performed By: #### H H #### [facility] [address] [address] [address] Benito To TYPE AND SCREENon 08-08-2022 TYPE AND SCREEN Negative Normal [facility] Comment on above: Performed By: #### P RBC, TNS #### [facility] [address] [place] [address] Dr. Benito To CBC W Auto Differential pane l (Bld)on 08-07-2022 Anisocytosis Ql (Bld) Present Normal [facility] Comment on above: Order Comment: Speci men Type: BLOOD SPECIMENOrdering Facility: [facility] Address: [address] [place] [address] Performed By: #### 5 7021-8 ####[facility] LABCLIA [id number] [facility] [id number] [address] [facility] LABCLIA [id number] [place] [address] Basophils (Bld) [#/Vol] 0.05 10*3/uL Normal <0.11 [facility] Comment on above: Order Comment: Speci men Type: BLOOD SPECIMENOrdering Facility: [facility] Address: [address] [place] [address] Performed By: #### 5 7021-8 ####[facility] LABCLIA [id number] [address] LABCLIA [id number] [place] [address] Basophils/100 WBC (Bld) 3.0 % Normal [facility] Comment on above: Order Comment: Speci men Type: BLOOD SPECIMENOrdering Facility: [facility] Address: [address] [place] [address] Performed By: #### 5 7021-8 ####[facility] LABCLIA [id number] [address] LABCLIA [id number] [place] [address] Differential cell count method Nom (Bld) Manual Normal [facility] Comment on above: Order Comment: Speci men Type: BLOOD SPECIMENOrdering Facility: [facility] Address: [address] [place] [address] Performed By: #### 5 7021-8 ####[facility] LABCLIA [id number] [address] LABCLIA [id number] [place] [address] Eosinophils (Bld) [#/Vol] 0.05 10*3/uL Normal <0.46 [facility] Comment on above: Order Comment: Speci men Type: BLOOD SPECIMENOrdering Facility: [facility] Address: [address] [place] [address] Performed By: #### 5 7021-8 ####[facility] LABCLIA [id number] [address] [place] [address] [facility] LABCLIA [id number] [place] [address] Eosinophils/100 WBC (Bld) 3.0 % Normal [facility] Comment on above: Order Comment: Speci men Type: BLOOD SPECIMENOrdering Facility: [facility] Address: [address] [place] [address] Performed By: #### 5 7021-8 ####[facility] LABCLIA [id number] [address] [address] [facility] LABCLIA [id number] [place] [address] Erythrocyte distribution width (RBC) [Ratio] 16.4 % High 11.5-15.0 [facility] Comment on above: Order Comment: Speci men Type: BLOOD SPECIMENOrdering Facility: [facility] Address: [address] [place] [address] Performed By: #### 5 7021-8 ####[facility] LABCLIA [id number] [address] LABCLIA [id number] [place] [address] Giant platelets LM Ql (Bld) Occasional Normal [facility] Comment on above: Order Comment: Speci men Type: BLOOD SPECIMENOrdering Facility: [facility] Address: [address] [place], [place] [address] Performed By: #### 5 7021-8 ####[facility] LABCLIA [id number] [address] LABCLIA [id number] [place] [address] Hematocrit (Bld) [Volume fraction] 23.4 % Low 39.0-51.0 [facility] Comment on above: Order Comment: Speci men Type: BLOOD SPECIMENOrdering Facility: [facility] Address: [address] [address] Performed By: #### 5 7021-8 ####[facility] LABCLIA [id number] [address] LABCLIA [id number] [place] [address] Hemoglobin (Bld) [Mass/Vol] 7.2 g/dL Low 13.0-17.0 [facility] Comment on above: Order Comment: Speci men Type: BLOOD SPECIMENOrdering Facility: [facility] Address: [address] [place] [address] Performed By: #### 5 7021-8 ####[facility] LABCLIA [id number] [address] LABCLIA [id number] [place] [address] Lymphocytes (Bld) [#/Vol] 0.89 10*3/uL Low 1.00-4.00 [facility] Comment on above: Order Comment: Speci men Type: BLOOD SPECIMENOrdering Facility: [facility] Address: [address] [place] [address] Performed By: #### 5 7021-8 ####[facility] LABCLIA [id number] [address] LABCLIA [id number] [place] [address] Lymphocytes/100 WBC (Bld) 54.0 % Normal [facility] Comment on above: Order Comment: Speci men Type: BLOOD SPECIMENOrdering Facility: [facility] Address: [address] [place] [address] Performed By: #### 5 7021-8 ####[facility] LABCLIA [id number] [address] LABCLIA [id number] [place] [address] MCH (RBC) [Entitic mass] 30.3 pg Normal 26.0-34.0 [facility] Comment on above: Order Comment: Speci men Type: BLOOD SPECIMENOrdering Facility: [facility] Address: [address] [place] [address] Performed By: #### 5 7021-8 ####[facility] LABCLIA [id number] [address] LABCLIA [id number] [place] [address] MCHC (RBC) [Mass/Vol] 30.8 g/dL Normal 30.5-36.0 [facility] Comment on above: Order Comment: Speci men Type: BLOOD SPECIMENOrdering Facility: [facility] Address: [address] [place] [address] Performed By: #### 5 7021-8 ####[facility] LABIA [id number] [address] LABCLIA [id number] [place] [address] MCV (RBC) [Entitic vol] 98.3 fL Normal 80.0-100.0 [facility] Comment on above: Order Comment: Speci men Type: BLOOD SPECIMENOrdering Facility: [facility] Address: [address] [place], [place] [address] Performed By: #### 5 7021-8 ####[facility] LABIA [id number] [address] LABCLIA [id number] [place] [address] Monocytes (Bld) [#/Vol] 0.12 10*3/uL Normal <0.87 [facility] Comment on above: Order Comment: Speci men Type: BLOOD SPECIMENOrdering Facility: [facility] Address: [address] [place] [address] Performed By: #### 5 7021-8 ####[facility] LABCLIA [id number] [address] LABCLIA [id number] [place] [address] Monocytes/100 WBC (Bld) 7.0 % Normal [facility] Comment on above: Order Comment: Speci men Type: BLOOD SPECIMENOrdering Facility: [facility] Address: [address] [place] [address] Performed By: #### 5 7021-8 ####[facility] LABCLIA [id number] [address] LABCLIA [id number] [place] [address] Neutrophils (Bld) [#/Vol] 0.54 10*3/uL Low 1.45-7.50 [facility] Comment on above: Order Comment: Speci men Type: BLOOD SPECIMENOrdering Facility: [facility] Address: [address] [place] [address] Performed By: #### 5 7021-8 ####[facility] LABCLIA [id number] [address] LABCLIA [id number] [place] [address] Neutrophils/100 WBC (Bld) 33.0 % Normal [facility] Comment on above: Order Comment: Speci men Type: BLOOD SPECIMENOrdering Facility: [facility] Address: [address] [place] [address] Performed By: #### 5 7021-8 ####[facility] LABCLIA [id number] [address] [facility] LABCLIA [id number] [place] [address] Nucleated RBC (Bld) [#/Vol] 10*3/uL Normal <0.01 [facility] Comment on above: Order Comment: Speci men Type: BLOOD SPECIMENOrdering Facility: [facility] Address: [address] [place] [address] Result Comment: This result was previously suppressed from the chart. Performed By: #### 5 7021-8 ####[facility] LABCLIA [id number] [address] LABCLIA [id number] [place] [address] Nucleated RBC/100 WBC (Bld) [Ratio] 0.0 /100 WBC Normal [facility] Comment on above: Order Comment: Speci men Type: BLOOD SPECIMENOrdering Facility: [facility] Address: [address] [place] [address] Performed By: #### 5 7021-8 ####[facility] LABCLIA [id number] [address] LABCLIA [id number] [place] [address] Ovalocytes LM Ql (Bld) Few Normal [facility] Comment on above: Order Comment: Speci men Type: BLOOD SPECIMENOrdering Facility: [facility] Address: [address] [place] [address] Performed By: #### 5 7021-8 ####[facility] LABCLIA [id number] [address] LABCLIA [id number] [place] [address] Platelet mean volume (Bld) [Entitic vol] 15.0 fL High 9.0-12.7 [facility] Comment on above: Order Comment: Speci men Type: BLOOD SPECIMENOrdering Facility: [facility] Address: [address] [place] [address] Performed By: #### 5 7021-8 ####[facility] LABCLIA [id number] [address] LABCLIA [id number] [place] [address] Platelets (Bld) [#/Vol] 76 10*3/uL Low 150-400 [facility] Comment on above: Order Comment: Speci men Type: BLOOD SPECIMENOrdering Facility: [facility] Address: [address] [place] [address] Performed By: #### 5 7021-8 ####[facility] LABCLIA [id number] [address] LABCLIA [id number] [place] [address] Platelets Estimate (Bld) [#/Vol] Decreased Normal [facility] Comment on above: Order Comment: Speci men Type: BLOOD SPECIMENOrdering Facility: [facility] Address: [address] [place] [address] Performed By: #### 5 7021-8 ####[facility] LABCLIA [id number] [address] LABCLIA [id number] [place] [address] RBC (Bld) [#/Vol] 2.38 10*6/uL Low 4.20-6.00 [facility] Comment on above: Order Comment: Speci men Type: BLOOD SPECIMENOrdering Facility: [facility] Address: [address] [place], [place] [address] Performed By: #### 5 7021-8 ####[facility] LABCLIA [id number] [address] [facility] LABCLIA [id number] [place] [address] RED CELL MORPH Reviewed: see result s of individual morphologies Normal [facility] Comment on above: Order Comment: Speci men Type: BLOOD SPECIMENOrdering Facility: [facility] Address: [address] Performed By: #### 5 7021-8 ####[facility] LABCLIA [id number] [address] LABCLIA [id number] [place] [address] WBC (Bld) [#/Vol] 1.65 10*3/uL Low 3.70-11.00 [facility] Comment on above: Order Comment: Speci men Type: BLOOD SPECIMENOrdering Facility: [facility] Address: [address] [place], [place] [address] Performed By: #### 5 7021-8 ####[facility] LABCLIA [id number] [address] LABCLIA [id number] [place] [address] CNOVSPon 08-07-2022 CNOVSP Normal [facility] Comprehensive metabolic 2000 panelon 08-07-2022 Albumin [Mass/Vol] 3.9 g/dL Normal 3.9-4.9 [facility] Comment on above: Order Comment: Speci men Type: BLOOD SPECIMENOrdering Facility: [facility] Address: [address] [place] [address] Performed By: #### 2 4323-8 ####[facility] LABIA [id number] [place] [address] ALP [Catalytic activity/Vol] 144 U/L High 38-113 [facility] Comment on above: Order Comment: Speci men Type: BLOOD SPECIMENOrdering Facility: [facility] Address: [address] [place], [place] [address] Performed By: #### 2 4323-8 ####[facility] LABCLIA [id number] [place] [address] ALT [Catalytic activity/Vol] 64 U/L High 10-54 [facility] Comment on above: Order Comment: Speci men Type: BLOOD SPECIMENOrdering Facility: [facility] Address: [address] [address] Performed By: #### 2 4323-8 ####[facility] LABCLIA [id number] [place] [address] Anion gap [Moles/Vol] 9 mmol/L Normal 9-18 [facility] Comment on above: Order Comment: Speci men Type: BLOOD SPECIMENOrdering Facility: [facility] Address: [address] [place] [address] Performed By: #### 2 4323-8 ####[facility] LABCLIA [id number] [place] [address] AST [Catalytic activity/Vol] 31 U/L Normal 14-40 [facility] Comment on above: Order Comment: Speci men Type: BLOOD SPECIMENOrdering Facility: [facility] Address: [address] [address] Performed By: #### 2 4323-8 ####[facility] LABCLIA [id number] [place] [address] Bilirubin [Mass/Vol] 1.0 mg/dL Normal 0.2-1.3 [facility] Comment on above: Order Comment: Speci men Type: BLOOD SPECIMENOrdering Facility: [facility] Address: [address] [address] Performed By: #### 2 4323-8 ####[facility] LABCLIA [id number] [place] [address] Calcium [Mass/Vol] 9.0 mg/dL Normal 8.5-10.2 [facility] Comment on above: Order Comment: Speci men Type: BLOOD SPECIMENOrdering Facility: [facility] Address: [address] [place] [address] Performed By: #### 2 4323-8 ####[facility] LABCLIA [id number] [place] [address] Chloride [Moles/Vol] 102 mmol/L Normal 97-105 [facility] Comment on above: Order Comment: Speci men Type: BLOOD SPECIMENOrdering Facility: [facility] Address: [address] [place] [address] Performed By: #### 2 4323-8 ####[facility] LABCLIA [id number] [place] [address] CO2 [Moles/Vol] 32 mmol/L High 22-30 [facility] Comment on above: Order Comment: Speci men Type: BLOOD SPECIMENOrdering Facility: [facility] Address: [address] [place] [address] Performed By: #### 2 4323-8 ####[facility] LABCLIA [id number] [place] [address] Creatinine [Mass/Vol] 1.54 mg/dL High 0.73-1.22 [facility] Comment on above: Order Comment: Speci men Type: BLOOD SPECIMENOrdering Facility: [facility] Address: [address] [place] [address] Performed By: #### 2 4323-8 ####[facility] LABCLIA [id number] [place] [address] ESTIMATED GLOMERULAR FILTRATION RATE 44 mL/min/1.73m??? Low >=60 [facility] Comment on above: Order Comment: Speci men Type: BLOOD SPECIMENOrdering Facility: [facility] Address: [address] [place] [address] Result Comment: Faye mated Glomerular Filtration Rate [...] actual GFR. Performed By: #### 2 4323-8 ####[facility] LABCLIA [id number] [place] [address] Glucose [Mass/Vol] 138 mg/dL High 74-99 [facility] Comment on above: Order Comment: Speci men Type: BLOOD SPECIMENOrdering Facility: [facility] Address: [address] [place] [phone] Result Comment: The [place] [employer] (ADA) provides guidance for cutoff [...] Standards of Medical Care in Diabetes 2016, [place] [employer]. Diabetes Care. 2016.39(Suppl 1). Performed By: #### 2 4323-8 ####[facility] LABCLIA [id number] [place] [address] Potassium [Moles/Vol] 4.2 mmol/L Normal 3.7-5.1 [facility] Comment on above: Order Comment: Speci men Type: BLOOD SPECIMENOrdering Facility: [facility] Address: [address] [place] [phone] Performed By: #### 2 4323-8 ####[facility] LABCLIA [id number] [place] [address] Protein [Mass/Vol] 6.1 g/dL Low 6.3-8.0 [facility] Comment on above: Order Comment: Speci men Type: BLOOD SPECIMENOrdering Facility: [facility] Address: [address] [address] Performed By: #### 2 4323-8 ####[facility] LABCLIA [id number] [place] [address] Sodium [Moles/Vol] 143 mmol/L Normal 136-144 [facility] Comment on above: Order Comment: Speci men Type: BLOOD SPECIMENOrdering Facility: [facility] Address: [address] [place] [address] Performed By: #### 2 4323-8 ####[facility] LABCLIA [id number] [place] [address] Urea nitrogen [Mass/Vol] 27 mg/dL High 9-24 [facility] Comment on above: Order Comment: Speci men Type: BLOOD SPECIMENOrdering Facility: [facility] Address: [address] [place] [address] Performed By: #### 2 4323-8 ####[facility] LABCLIA [id number] [place] [address] CBC W Auto Differential pane l (Bld)on 07-30-2022 Anisocytosis Ql (Bld) Present Normal [facility] Comment on above: Order Comment: Speci men Type: BLOOD SPECIMENOrdering Facility: [facility] Address: [address] [place] [address] Performed By: #### 5 7021-8 ####[facility] LABCLIA [id number] [facility] [id number] [id number] [facility] LABCLIA [id number] [place] [address] Basophils (Bld) [#/Vol] 0.06 10*3/uL Normal <0.11 [facility] Comment on above: Order Comment: Speci men Type: BLOOD SPECIMENOrdering Facility: [facility] Address: [address] [place] [address] Performed By: #### 5 7021-8 ####[facility] LABCLIA [id number] [address] LABCLIA [id number] [place] [address] Basophils/100 WBC (Bld) 3.0 % Normal [facility] Comment on above: Order Comment: Speci men Type: BLOOD SPECIMENOrdering Facility: [facility] Address: [address] [place] [address] Performed By: #### 5 7021-8 ####[facility] LABCLIA [id number] [address] LABCLIA [id number] [place] [address] BLAST% 1.0 % High <=0.0 [facility] Comment on above: Order Comment: Speci men Type: BLOOD SPECIMENOrdering Facility: [facility] Address: [address] [place] [address] Result Comment: This result was previously suppressed from the chart. Performed By: #### 5 7021-8 ####[facility] LABCLIA [id number] [address] LABCLIA [id number] [place] [address] Differential cell count method Nom (Bld) Manual Normal [facility] Comment on above: Order Comment: Speci men Type: BLOOD SPECIMENOrdering Facility: [facility] Address: [address] [place], [place] [address] Performed By: #### 5 7021-8 ####[facility] LABCLIA [id number] [address] LABCLIA [id number] [place] [address] Eosinophils (Bld) [#/Vol] 0.08 10*3/uL Normal <0.46 [facility] Comment on above: Order Comment: Speci men Type: BLOOD SPECIMENOrdering Facility: [facility] Address: [address] [place] [address] Performed By: #### 5 7021-8 ####[facility] LABCLIA [id number] [address] LABCLIA [id number] [place] [address] Eosinophils/100 WBC (Bld) 4.0 % Normal [facility] Comment on above: Order Comment: Speci men Type: BLOOD SPECIMENOrdering Facility: [facility] Address: [address] [place] [address] Performed By: #### 5 7021-8 ####[facility] LABCLIA [id number] [address] LABCLIA [id number] [place] [address] Erythrocyte distribution width (RBC) [Ratio] 15.9 % High 11.5-15.0 [facility] Comment on above: Order Comment: Speci men Type: BLOOD SPECIMENOrdering Facility: [facility] Address: [address] [place] [address] Performed By: #### 5 7021-8 ####[facility] LABCLIA [id number] [address] LABCLIA [id number] [place] [address] Giant platelets LM Ql (Bld) Occasional Normal [facility] Comment on above: Order Comment: Speci men Type: BLOOD SPECIMENOrdering Facility: [facility] Address: [address] [place] [address] Performed By: #### 5 7021-8 ####[facility] LABCLIA [id number] [address] LABCLIA [id number] [place] [address] Hematocrit (Bld) [Volume fraction] 27.5 % Low 39.0-51.0 [facility] Comment on above: Order Comment: Speci men Type: BLOOD SPECIMENOrdering Facility: [facility] Address: [address] [place] [address] Performed By: #### 5 7021-8 ####[facility] LABCLIA [id number] [address] LABCLIA [id number] [place] [address] Hemoglobin (Bld) [Mass/Vol] 8.6 g/dL Low 13.0-17.0 [facility] Comment on above: Order Comment: Speci men Type: BLOOD SPECIMENOrdering Facility: [facility] Address: [address] [place] [address] Performed By: #### 5 7021-8 ####[facility] LABCLIA [id number] [address] LABCLIA [id number] [place] [address] Lymphocytes (Bld) [#/Vol] 0.84 10*3/uL Low 1.00-4.00 [facility] Comment on above: Order Comment: Speci men Type: BLOOD SPECIMENOrdering Facility: [facility] Address: [address] [place], [place] [address] Performed By: #### 5 7021-8 ####[facility] LABCLIA [id number] [address] LABCLIA [id number] [place] [address] Lymphocytes/100 WBC (Bld) 41.0 % Normal [facility] Comment on above: Order Comment: Speci men Type: BLOOD SPECIMENOrdering Facility: [facility] Address: [address] [place] [address] Performed By: #### 5 7021-8 ####[facility] LABCLIA [id number] [address] LABCLIA [id number] [place] [address] MCH (RBC) [Entitic mass] 30.5 pg Normal 26.0-34.0 [facility] Comment on above: Order Comment: Speci men Type: BLOOD SPECIMENOrdering Facility: [facility] Address: [address] [place] [address] Performed By: #### 5 7021-8 ####[facility] LABCLIA [id number] [address] LABCLIA [id number] [place] [address] MCHC (RBC) [Mass/Vol] 31.3 g/dL Normal 30.5-36.0 [facility] Comment on above: Order Comment: Speci men Type: BLOOD SPECIMENOrdering Facility: [facility] Address: [address] [place] [address] Performed By: #### 5 7021-8 ####[facility] LABCLIA [id number] [address] LABCLIA [id number] [place] [address] MCV (RBC) [Entitic vol] 97.5 fL Normal 80.0-100.0 [facility] Comment on above: Order Comment: Speci men Type: BLOOD SPECIMENOrdering Facility: [facility] Address: [address] [place] [address] Performed By: #### 5 7021-8 ####[facility] LABCLIA [id number] [address] LABCLIA [id number] [place] [address] Monocytes (Bld) [#/Vol] 0.10 10*3/uL Normal <0.87 [facility] Comment on above: Order Comment: Speci men Type: BLOOD SPECIMENOrdering Facility: [facility] Address: [address] [place] [address] Performed By: #### 5 7021-8 ####[facility] LABCLIA [id number] [address] LABCLIA [id number] [place] [address] Monocytes/100 WBC (Bld) 5.0 % Normal [facility] Comment on above: Order Comment: Speci men Type: BLOOD SPECIMENOrdering Facility: [facility] Address: [address] [place] [address] Performed By: #### 5 7021-8 ####[facility] LABCLIA [id number] [address] LABCLIA [id number] [place] [address] Neutrophils (Bld) [#/Vol] 0.95 10*3/uL Low 1.45-7.50 [facility] Comment on above: Order Comment: Speci men Type: BLOOD SPECIMENOrdering Facility: [facility] Address: [address] [place] [address] Performed By: #### 5 7021-8 ####[facility] LABCLIA [id number] [address] LABCLIA [id number] [place] [address] Neutrophils/100 WBC (Bld) 46.0 % Normal [facility] Comment on above: Order Comment: Speci men Type: BLOOD SPECIMENOrdering Facility: [facility] Address: [address] [place] [address] Performed By: #### 5 7021-8 ####[facility] LABCLIA [id number] [address] LABCLIA [id number] [place] [address] Nucleated RBC (Bld) [#/Vol] 10*3/uL Normal <0.01 [facility] Comment on above: Order Comment: Speci men Type: BLOOD SPECIMENOrdering Facility: [facility] Address: [address] [place] [address] Result Comment: This result was previously suppressed from the chart. Performed By: #### 5 7021-8 ####[facility] LABCLIA [id number] [address] LABCLIA [id number] [place] [address] Nucleated RBC/100 WBC (Bld) [Ratio] 0.0 /100 WBC Normal [facility] Comment on above: Order Comment: Speci men Type: BLOOD SPECIMENOrdering Facility: [facility] Address: [address] [place] [address] Performed By: #### 5 7021-8 ####[facility] LABCLIA [id number] [address] LABCLIA [id number] [place] [address] Ovalocytes LM Ql (Bld) Few Normal [facility] Comment on above: Order Comment: Speci men Type: BLOOD SPECIMENOrdering Facility: [facility] Address: [address] [place] [address] Performed By: #### 5 7021-8 ####[facility] LABCLIA [id number] LABCLIA [id number] [place] [address] Platelet mean volume (Bld) [Entitic vol] Normal [facility] Comment on above: Order Comment: Speci men Type: BLOOD SPECIMENOrdering Facility: [facility] Address: [address] [place] [address] Result Comment: Unab le to report Performed By: #### 5 7021-8 ####[facility] LABCLIA [id number] [address] LABCLIA [id number] [place] [address] Platelets (Bld) [#/Vol] 84 10*3/uL Low 150-400 [facility] Comment on above: Order Comment: Speci men Type: BLOOD SPECIMENOrdering Facility: [facility] Address: [address] [place] [address] Performed By: #### 5 7021-8 ####[facility] LABCLIA [id number] [address] LABCLIA [id number] [place] [address] Platelets Estimate (Bld) [#/Vol] Decreased Normal [facility] Comment on above: Order Comment: Speci men Type: BLOOD SPECIMENOrdering Facility: [facility] Address: [address] [place] [address] Performed By: #### 5 7021-8 ####[facility] LABCLIA [id number] [address] LABCLIA [id number] [place] [address] RBC (Bld) [#/Vol] 2.82 10*6/uL Low 4.20-6.00 [facility] Comment on above: Order Comment: Speci men Type: BLOOD SPECIMENOrdering Facility: [facility] Address: [address] [place] [address] Performed By: #### 5 7021-8 ####[facility] LABCLIA [id number] [address] LABCLIA [id number] [place] [address] RED CELL MORPH Reviewed: see result s of individual morphologies Normal [facility] Comment on above: Order Comment: Speci men Type: BLOOD SPECIMENOrdering Facility: [facility] Address: [address] [place] [address] Performed By: #### 5 7021-8 ####[facility] LABCLIA [id number] [address] LABCLIA [id number] [place] [address] WBC (Bld) [#/Vol] 2.06 10*3/uL Low 3.70-11.00 [facility] Comment on above: Order Comment: Speci men Type: BLOOD SPECIMENOrdering Facility: [facility] Address: [address] [place] [address] Performed By: #### 5 7021-8 ####[facility] LABCLIA [id number] [address] LABCLIA [id number] [place] [address] CNOVSPon 07-30-2022 CNOVSP Normal [facility] Comprehensive metabolic 2000 panelon 07-30-2022 Albumin [Mass/Vol] 3.9 g/dL Normal 3.9-4.9 [facility] Comment on above: Order Comment: Speci men Type: BLOOD SPECIMENOrdering Facility: [facility] Address: [address] [place] [address] Performed By: #### 2 4323-8 ####[facility] LABCLIA [id number] [place] [address] ALP [Catalytic activity/Vol] 130 U/L High 38-113 [facility] Comment on above: Order Comment: Speci men Type: BLOOD SPECIMENOrdering Facility: [facility] Address: [address] [place] [address] Performed By: #### 2 4323-8 ####[facility] LABCLIA [id number] [place] [address] ALT [Catalytic activity/Vol] 45 U/L Normal 10-54 [facility] Comment on above: Order Comment: Speci men Type: BLOOD SPECIMENOrdering Facility: [facility] Address: [address] [place] [address] Performed By: #### 2 4323-8 ####[facility] LABCLIA [id number] [place] [address] Anion gap [Moles/Vol] 9 mmol/L Normal 9-18 [facility] Comment on above: Order Comment: Speci men Type: BLOOD SPECIMENOrdering Facility: [facility] Address: [address] [place] [address] Performed By: #### 2 4323-8 ####[facility] LABCLIA [id number] [place] [address] AST [Catalytic activity/Vol] 24 U/L Normal 14-40 [facility] Comment on above: Order Comment: Speci men Type: BLOOD SPECIMENOrdering Facility: [facility] Address: [address] [place] [address] Performed By: #### 2 4323-8 ####[facility] LABCLIA [id number] [place] [address] Bilirubin [Mass/Vol] 1.0 mg/dL Normal 0.2-1.3 [facility] Comment on above: Order Comment: Speci men Type: BLOOD SPECIMENOrdering Facility: [facility] Address: [address] [address] Performed By: #### 2 4323-8 ####[facility] LABCLIA [id number] [place] [address] Calcium [Mass/Vol] 9.2 mg/dL Normal 8.5-10.2 [facility] Comment on above: Order Comment: Speci men Type: BLOOD SPECIMENOrdering Facility: [facility] Address: [address] [address] Performed By: #### 2 4323-8 ####[facility] LABCLIA [id number] [place] [address] Chloride [Moles/Vol] 100 mmol/L Normal 97-105 [facility] Comment on above: Order Comment: Speci men Type: BLOOD SPECIMENOrdering Facility: [facility] Address: [address] [place] [address] Performed By: #### 2 4323-8 ####[facility] LABCLIA [id number] [place] [address] CO2 [Moles/Vol] 34 mmol/L High 22-30 [facility] Comment on above: Order Comment: Speci men Type: BLOOD SPECIMENOrdering Facility: [facility] Address: [address] [place] [address] Performed By: #### 2 4323-8 ####[facility] LABCLIA [id number] [place] [address] Creatinine [Mass/Vol] 1.50 mg/dL High 0.73-1.22 [facility] Comment on above: Order Comment: Speci men Type: BLOOD SPECIMENOrdering Facility: [facility] Address: [address] [place] [address] Performed By: #### 2 4323-8 ####[facility] LABCLIA [id number] [place] [address] ESTIMATED GLOMERULAR FILTRATION RATE 46 mL/min/1.73m??? Low >=60 [facility] Comment on above: Order Comment: Davi avendaño Type: BLOOD SPECIMENOrdering Facility: [facility] Address: [address] [phone] Result Comment: Faye mated Glomerular Filtration Rate [...] actual GFR. Performed By: #### 2 4323-8 ####[facility] LABCLIA [id number] [place] [address] Glucose [Mass/Vol] 206 mg/dL High 74-99 [facility] Comment on above: Order Comment: Davi avendaño Type: BLOOD SPECIMENOrdering Facility: [facility] Address: [address] Result Comment: The [place] [employer] (ADA) provides guidance for cutoff [...] Standards of Medical Care in Diabetes 2016, [place] [employer]. Diabetes Care. 2016.39(Suppl 1). Performed By: #### 2 4323-8 ####[facility] LABCLIA [id number] [place] [address] Potassium [Moles/Vol] 3.9 mmol/L Normal 3.7-5.1 [facility] Comment on above: Order Comment: Davi avendaño Type: BLOOD SPECIMENOrdering Facility: [facility] Address: [address] [address] Performed By: #### 2 4323-8 ####[facility] LABCLIA [id number] [place] [address] Protein [Mass/Vol] 6.3 g/dL Normal 6.3-8.0 [facility] Comment on above: Order Comment: Speci men Type: BLOOD SPECIMENOrdering Facility: [facility] Address: [address] [place] [address] Performed By: #### 2 4323-8 ####[facility] LABCLIA [id number] [place] [address] Sodium [Moles/Vol] 143 mmol/L Normal 136-144 [facility] Comment on above: Order Comment: Speci men Type: BLOOD SPECIMENOrdering Facility: [facility] Address: [address] [place] [address] Performed By: #### 2 4323-8 ####[facility] LABCLIA [id number] [place] [address] Urea nitrogen [Mass/Vol] 22 mg/dL Normal 9-24 [facility] Comment on above: Order Comment: Speci men Type: BLOOD SPECIMENOrdering Facility: [facility] Address: [address] [place] [address] Performed By: #### 2 4323-8 ####[facility] LABCLIA [id number] [place] [address] PRBC LEUKOREDUCEDon 07-27-20 ABO and Rh group Nom (Bld) Cross Match Result Compatible Unit Blood Type A Pos Unit Number [id number] Status Information Transfused Product ID Red Blood Cells Product Code [id number] Cross Match Result Compatible Unit Blood Type A Pos Unit Number [id number] Status Information Transfused Product ID Red Blood Cells Product Code [id number] Normal [facility] Comment on above: Performed By: #### H H #### [facility] [address] [place] [address] Dr. Benito Solis 07-25-2022 CNPN Normal [facility] PRBC LEUKOREDUCEDon 07-25-20 ABO and Rh group Nom (Bld) Cross Match Result Compatible Unit Blood Type A Pos Unit Number [id number] Status Information Transfused Product ID Red Blood Cells Product Code [id number] Cross Match Result Compatible Unit Blood Type A Pos Unit Number [id number] Status Information Transfused Product ID Red Blood Cells Product Code [id number] [facility] Comment on above: Performed By: #### P RBC, TNS #### [facility] [address] [place] [address] Dr. Benito To ABO and Rh group Nom (Bld) Cross Match Result Compatible Unit Blood Type O Neg Unit Number [id number] Status Information Transfused Product ID Red Blood Cells Product Code [id number] Cross Match Result Compatible Unit Blood Type O Pos Unit Number [id number] Status Information Transfused Product ID Red Blood Cells Product Code [id number] [facility] Comment on above: Performed By: #### T NS, PRBC #### [facility] [address] [place] [address] Dr. Benito To ABO and Rh group Nom (Bld) Cross Match Result Compatible Unit Blood Type A Pos Unit Number [id number] Status Information Transfused Product ID Red Blood Cells Product Code [id number] Cross Match Result Compatible Unit Blood Type A Pos Unit Number [id number] Status Information Transfused Product ID Red Blood Cells Product Code W2369I79 [facility] Comment on above: Performed By: #### P RBC, TNS #### [facility] [address] [place] [address] Dr. Benito To PRBC LEUKOREDUCED Cross Match Result Compatible Unit Blood Type A Pos Unit Number [id number] Status Information Transfused Product ID Red Blood Cells Product Code [id number] [facility] Comment on above: Performed By: #### T NS, PRBC #### [facility] [address] [place] [address] Dr. Benito To PRBC LEUKOREDUCED Cross Match Result Compatible Unit Blood Type A Pos Unit Number [id number] Status Information Transfused Product ID Red Blood Cells Product Code [id number] Normal [facility] Comment on above: Performed By: #### H GBHCT #### [facility] [address] [place] [address] Dr. Benito To CNPNon 07-24-2022 CNPN Normal [facility] HEMOGLOBIN AND HEMATOCRITon 07-24-2022 Hematocrit (Bld) [Volume fraction] 22.2 % Critically low 42.0-54.0 [facility] Comment on above: Performed By: #### T NS, PRBC #### [facility] [address] [place] [address] Dr. Benito To Hemoglobin (Bld) [Mass/Vol] 7.0 g/dL Critically low 14.0-18.0 [facility] Comment on above: Performed By: #### T NS, PRBC #### [facility] [address] [place] [address] Dr. Benito To TYPE AND SCREENon 07-24-2022 TYPE AND SCREEN Negative Normal [facility] Comment on above: Performed By: #### T NS, PRBC #### [facility] [address] [place] [address] Dr. Benito To CBC W Auto Differential pane l (Bld)on 07-23-2022 Anisocytosis Ql (Bld) Present Normal [facility] Comment on above: Order Comment: Speci men Type: BLOOD SPECIMENOrdering Facility: [facility] Address: [address] [place] [address] Performed By: #### 5 7021-8 ####[facility] LABCLIA [id number] [address] [address] [facility] LABCLIA [id number] [place] [address] Basophils (Bld) [#/Vol] 0.12 10*3/uL High <0.11 [facility] Comment on above: Order Comment: Speci men Type: BLOOD SPECIMENOrdering Facility: [facility] Address: [address] [place] [address] Performed By: #### 5 7021-8 ####[facility] LABCLIA [id number] [address] LABCLIA [id number] [place] [address] Basophils/100 WBC (Bld) 6.0 % Normal [facility] Comment on above: Order Comment: Speci men Type: BLOOD SPECIMENOrdering Facility: [facility] Address: [address] [place] [address] Performed By: #### 5 7021-8 ####[facility] LABCLIA [id number] [address] LABCLIA [id number] [place] [address] Differential cell count method Nom (Bld) Manual Normal [facility] Comment on above: Order Comment: Speci men Type: BLOOD SPECIMENOrdering Facility: [facility] Address: [address] [place] [address] Performed By: #### 5 7021-8 ####[facility] LABCLIA [id number] [address] LABCLIA [id number] [place] [address] Eosinophils (Bld) [#/Vol] 0.02 10*3/uL Normal <0.46 [facility] Comment on above: Order Comment: Speci men Type: BLOOD SPECIMENOrdering Facility: [facility] Address: [address] [place] [address] Performed By: #### 5 7021-8 ####[facility] LABCLIA [id number] [address] LABCLIA [id number] [place] [address] Eosinophils/100 WBC (Bld) 1.0 % Normal [facility] Comment on above: Order Comment: Speci men Type: BLOOD SPECIMENOrdering Facility: [facility] Address: [address] [place] [address] Performed By: #### 5 7021-8 ####[facility] LABCLIA [id number] [place] [address] [facility] LABCLIA [id number] [place] [address] Erythrocyte distribution width (RBC) [Ratio] 16.6 % High 11.5-15.0 [facility] Comment on above: Order Comment: Speci men Type: BLOOD SPECIMENOrdering Facility: [facility] Address: [address] [place] [address] Performed By: #### 5 7021-8 ####[facility] LABCLIA [id number] [address] LABCLIA [id number] [place] [address] Giant platelets LM Ql (Bld) Present Normal [facility] Comment on above: Order Comment: Speci men Type: BLOOD SPECIMENOrdering Facility: [facility] Address: [address] [place] [address] Performed By: #### 5 7021-8 ####[facility] LABCLIA [id number] [address] LABCLIA [id number] [place] [address] Hematocrit (Bld) [Volume fraction] 23.4 % Low 39.0-51.0 [facility] Comment on above: Order Comment: Speci men Type: BLOOD SPECIMENOrdering Facility: [facility] Address: [address] [place] [address] Performed By: #### 5 7021-8 ####[facility] LABCLIA [id number] [address] [address] LABCLIA [id number] [place] [address] Hemoglobin (Bld) [Mass/Vol] 7.2 g/dL Low 13.0-17.0 [facility] Comment on above: Order Comment: Speci men Type: BLOOD SPECIMENOrdering Facility: [facility] Address: [address] [place] [address] Performed By: #### 5 7021-8 ####[facility] LABCLIA [id number] [address] LABCLIA [id number] [place] [address] Lymphocytes (Bld) [#/Vol] 0.88 10*3/uL Low 1.00-4.00 [facility] Comment on above: Order Comment: Speci men Type: BLOOD SPECIMENOrdering Facility: [facility] Address: [address] [place] [address] Performed By: #### 5 7021-8 ####[facility] LABCLIA [id number] [address] LABCLIA [id number] [place] [address] Lymphocytes/100 WBC (Bld) 44.0 % Normal [facility] Comment on above: Order Comment: Speci men Type: BLOOD SPECIMENOrdering Facility: [facility] Address: [address] [place] [address] Performed By: #### 5 7021-8 ####[facility] LABCLIA [id number] [address] LABCLIA [id number] [place] [address] MCH (RBC) [Entitic mass] 30.3 pg Normal 26.0-34.0 [facility] Comment on above: Order Comment: Speci men Type: BLOOD SPECIMENOrdering Facility: [facility] Address: [address] [place] [address] Performed By: #### 5 7021-8 ####[facility] LABCLIA [id number] [address] LABCLIA [id number] [place] [address] MCHC (RBC) [Mass/Vol] 30.8 g/dL Normal 30.5-36.0 [facility] Comment on above: Order Comment: Speci men Type: BLOOD SPECIMENOrdering Facility: [facility] Address: [address] [place] [address] Performed By: #### 5 7021-8 ####[facility] LABCLIA [id number] [address] LABCLIA [id number] [place] [address] MCV (RBC) [Entitic vol] 98.3 fL Normal 80.0-100.0 [facility] Comment on above: Order Comment: Speci men Type: BLOOD SPECIMENOrdering Facility: [facility] Address: [address] [place] [address] Performed By: #### 5 7021-8 ####[facility] LABCLIA [id number] [address] LABCLIA [id number] [place] [address] Metamyelocytes/100 WBC (Bld) 1.0 % Normal [facility] Comment on above: Order Comment: Speci men Type: BLOOD SPECIMENOrdering Facility: [facility] Address: [address] [place], [place] [address] Performed By: #### 5 7021-8 ####[facility] LABCLIA [id number] [address] [id number] [place] [address] LABCLIA [id number] [place] [address] Monocytes (Bld) [#/Vol] 0.24 10*3/uL Normal <0.87 [facility] Comment on above: Order Comment: Speci men Type: BLOOD SPECIMENOrdering Facility: [facility] Address: [address] [place] [address] Performed By: #### 5 7021-8 ####[facility] LABCLIA [id number] [address] LABCLIA [id number] [place] [address] Monocytes/100 WBC (Bld) 12.0 % Normal [facility] Comment on above: Order Comment: Speci men Type: BLOOD SPECIMENOrdering Facility: [facility] Address: [address] [place] [address] Performed By: #### 5 7021-8 ####[facility] LABCLIA [id number] [address] LABCLIA [id number] [place] [address] Neutrophils (Bld) [#/Vol] 0.72 10*3/uL Low 1.45-7.50 [facility] Comment on above: Order Comment: Speci men Type: BLOOD SPECIMENOrdering Facility: [facility] Address: [address] [place], [place] [address] Performed By: #### 5 7021-8 ####[facility] LABCLIA [id number] [address] LABCLIA [id number] [place] [address] Neutrophils/100 WBC (Bld) 36.0 % Normal [facility] Comment on above: Order Comment: Speci men Type: BLOOD SPECIMENOrdering Facility: [facility] Address: [address] [address] Performed By: #### 5 7021-8 ####[facility] LABCLIA [id number] [address] LABCLIA [id number] [place] [address] Nucleated RBC (Bld) [#/Vol] 10*3/uL Normal <0.01 [facility] Comment on above: Order Comment: Speci men Type: BLOOD SPECIMENOrdering Facility: [facility] Address: [address] [place] [address] Result Comment: This result was previously suppressed from the chart. Performed By: #### 5 7021-8 ####[facility] LABCLIA [id number] [address] LABCLIA [id number] [place] [address] Nucleated RBC/100 WBC (Bld) [Ratio] 0.0 /100 WBC Normal [facility] Comment on above: Order Comment: Speci men Type: BLOOD SPECIMENOrdering Facility: [facility] Address: [address] [place] [address] Performed By: #### 5 7021-8 ####[facility] LABCLIA [id number] [address] LABCLIA [id number] [place] [address] Ovalocytes LM Ql (Bld) Few Normal [facility] Comment on above: Order Comment: Speci men Type: BLOOD SPECIMENOrdering Facility: [facility] Address: [address] [place] [address] Performed By: #### 5 7021-8 ####[facility] LABCLIA [id number] [address] LABCLIA [id number] [place] [address] Platelet mean volume (Bld) [Entitic vol] Normal [facility] Comment on above: Order Comment: Speci men Type: BLOOD SPECIMENOrdering Facility: [facility] Address: [address] [place], [place] [address] Result Comment: Unab le to report Performed By: #### 5 7021-8 ####[facility] LABCLIA [id number] [place] [address] [facility] LABCLIA [id number] [place] [address] Platelets (Bld) [#/Vol] 83 10*3/uL Low 150-400 [facility] Comment on above: Order Comment: Speci men Type: BLOOD SPECIMENOrdering Facility: [facility] Address: [address] [place] [address] Performed By: #### 5 7021-8 ####[facility] LABCLIA [id number] [address] LABCLIA [id number] [place] [address] Platelets Estimate (Bld) [#/Vol] Decreased Normal [facility] Comment on above: Order Comment: Speci men Type: BLOOD SPECIMENOrdering Facility: [facility] Address: [address] [place] [address] Performed By: #### 5 7021-8 ####[facility] LABCLIA [id number] [address] LABCLIA [id number] [place] [address] RBC (Bld) [#/Vol] 2.38 10*6/uL Low 4.20-6.00 [facility] Comment on above: Order Comment: Speci men Type: BLOOD SPECIMENOrdering Facility: [facility] Address: [address] [place] [address] Performed By: #### 5 7021-8 ####[facility] LABCLIA [id number] [address] LABCLIA [id number] [place] [address] RED CELL MORPH Reviewed: see result s of individual morphologies Normal [facility] Comment on above: Order Comment: Speci men Type: BLOOD SPECIMENOrdering Facility: [facility] Address: [address] [place] [address] Performed By: #### 5 7021-8 ####[facility] LABCLIA [id number] [address] LABCLIA [id number] [place] [address] WBC (Bld) [#/Vol] 1.99 10*3/uL Low 3.70-11.00 [facility] Comment on above: Order Comment: Speci men Type: BLOOD SPECIMENOrdering Facility: [facility] Address: [address] [place] [address] Result Comment: Resu lts checked and verified.No clot detected. Performed By: #### 5 7021-8 ####[facility] LABCLIA [id number] [address] LABCLIA [id number] [place] [address] WBC Left Shift Ql (Bld) Present Normal [facility] Comment on above: Order Comment: Speci men Type: BLOOD SPECIMENOrdering Facility: [facility] Address: [address] [place] [address] Performed By: #### 5 7021-8 ####[facility] LABCLIA [id number] [address] LABCLIA [id number] [place] [address] CNOVSPon 07-23-2022 CNOVSP Normal [facility] CNPNon 07-23-2022 CNPN Normal [facility] Comprehensive metabolic 2000 panelon 07-23-2022 Albumin [Mass/Vol] 3.8 g/dL Low 3.9-4.9 [facility] Comment on above: Order Comment: Speci men Type: BLOOD SPECIMENOrdering Facility: [facility] Address: [address] [address] Performed By: #### 2 4323-8 ####[facility] LABCLIA [id number] [place] [address] ALP [Catalytic activity/Vol] 117 U/L High 38-113 [facility] Comment on above: Order Comment: Speci men Type: BLOOD SPECIMENOrdering Facility: [facility] Address: [address] [place] [address] Performed By: #### 2 4323-8 ####[facility] LABCLIA [id number] [place] [address] ALT [Catalytic activity/Vol] 36 U/L Normal 10-54 [facility] Comment on above: Order Comment: Speci men Type: BLOOD SPECIMENOrdering Facility: [facility] Address: [address] [place] [address] Performed By: #### 2 4323-8 ####[facility] LABCLIA [id number] [place] [address] Anion gap [Moles/Vol] 9 mmol/L Normal 9-18 [facility] Comment on above: Order Comment: Speci men Type: BLOOD SPECIMENOrdering Facility: [facility] Address: [address] [place] [address] Performed By: #### 2 4323-8 ####[facility] LABCLIA [id number] [place] [address] AST [Catalytic activity/Vol] 16 U/L Normal 14-40 [facility] Comment on above: Order Comment: Speci men Type: BLOOD SPECIMENOrdering Facility: [facility] Address: [address] [address] Performed By: #### 2 4323-8 ####[facility] LABCLIA [id number] [place] [address] Bilirubin [Mass/Vol] 1.1 mg/dL Normal 0.2-1.3 [facility] Comment on above: Order Comment: Speci men Type: BLOOD SPECIMENOrdering Facility: [facility] Address: [address] [address] Performed By: #### 2 4323-8 ####[facility] LABCLIA [id number] [place] [address] Calcium [Mass/Vol] 8.9 mg/dL Normal 8.5-10.2 [facility] Comment on above: Order Comment: Speci men Type: BLOOD SPECIMENOrdering Facility: [facility] Address: [address] [address] Performed By: #### 2 4323-8 ####[facility] LABCLIA [id number] [place] [address] Chloride [Moles/Vol] 100 mmol/L Normal 97-105 [facility] Comment on above: Order Comment: Speci men Type: BLOOD SPECIMENOrdering Facility: [facility] Address: [address] [address] Performed By: #### 2 4323-8 ####[facility] LABCLIA [id number] [place] [address] CO2 [Moles/Vol] 32 mmol/L High 22-30 [facility] Comment on above: Order Comment: Speci men Type: BLOOD SPECIMENOrdering Facility: [facility] Address: [address] [address] Performed By: #### 2 4323-8 ####[facility] LABCLIA [id number] [place] [address] Creatinine [Mass/Vol] 1.68 mg/dL High 0.73-1.22 [facility] Comment on above: Order Comment: Davi avendaño Type: BLOOD SPECIMENOrdering Facility: [facility] Address: [address] [place] [address] Performed By: #### 2 4323-8 ####[facility] LABCLIA [id number] [place] [address] ESTIMATED GLOMERULAR FILTRATION RATE 40 mL/min/1.73m??? Low >=60 [facility] Comment on above: Order Comment: Davi avendaño Type: BLOOD SPECIMENOrdering Facility: [facility] Address: [address] [place] [address] Result Comment: Faye mated Glomerular Filtration Rate [...] actual GFR. Performed By: #### 2 4323-8 ####[facility] LABCLIA [id number] [place] [address] Glucose [Mass/Vol] 143 mg/dL High 74-99 [facility] Comment on above: Order Comment: Davi avendaño Type: BLOOD SPECIMENOrdering Facility: [facility] Address: [address] [place] [address] Result Comment: The [place] [employer] (ADA) provides guidance for cutoff [...] Standards of Medical Care in Diabetes 2016, [place] [employer]. Diabetes Care. 2016.39(Suppl 1). Performed By: #### 2 4323-8 ####[facility] LABCLIA [id number] [place] [address] Potassium [Moles/Vol] 4.3 mmol/L Normal 3.7-5.1 [facility] Comment on above: Order Comment: Speci men Type: BLOOD SPECIMENOrdering Facility: [facility] Address: [address] [address] Performed By: #### 2 4323-8 ####[facility] LABCLIA [id number] [place] [address] Protein [Mass/Vol] 6.1 g/dL Low 6.3-8.0 [facility] Comment on above: Order Comment: Speci men Type: BLOOD SPECIMENOrdering Facility: [facility] Address: [address] [address] Performed By: #### 2 4323-8 ####[facility] LABCLIA [id number] [place] [address] Sodium [Moles/Vol] 141 mmol/L Normal 136-144 [facility] Comment on above: Order Comment: Speci men Type: BLOOD SPECIMENOrdering Facility: [facility] Address: [address] [address] Performed By: #### 2 4323-8 ####[facility] LABCLIA [id number] [place] [address] Urea nitrogen [Mass/Vol] 30 mg/dL High 9-24 [facility] Comment on above: Order Comment: Speci men Type: BLOOD SPECIMENOrdering Facility: [facility] Address: [address] [address] Performed By: #### 2 4323-8 ####[facility] LABCLIA [id number] [place] [address] CNPNon 07-18-2022 CNPN Normal [facility] CNOVSPon 07-16-2022 CNOVSP Normal [facility] CNPNon 07-16-2022 CNPN Normal [facility] HEMOGLOBIN AND HEMATOCRITon 07-16-2022 Hematocrit (Bld) [Volume fraction] 24.9 % Critically low 42.0-54.0 [facility] Comment on above: Performed By: #### H H #### [facility] [address] [address] [address] Benito To Hemoglobin (Bld) [Mass/Vol] 7.8 g/dL Critically low 14.0-18.0 [facility] Comment on above: Performed By: #### H H #### [facility] [address] [address] [address] Benito To TYPE AND SCREENon 07-16-2022 TYPE AND SCREEN Negative Normal [facility] Comment on above: Performed By: #### H GBHCT #### [facility] [address] [address] [address] Benito To CBC W Auto Differential pane l (Bld)on 07-15-2022 Anisocytosis Ql (Bld) Present Normal [facility] Comment on above: Order Comment: Speci men Type: BLOOD SPECIMENOrdering Facility: [facility] Address: [address] [place] [address] Performed By: #### 5 7021-8 ####[facility] LABCLIA [id number] [facility] [id number] LABCLIA [id number] [place] [address] Basophils (Bld) [#/Vol] 0.08 10*3/uL Normal <0.11 [facility] Comment on above: Order Comment: Speci men Type: BLOOD SPECIMENOrdering Facility: [facility] Address: [address] [place] [address] Performed By: #### 5 7021-8 ####[facility] LABCLIA [id number] [address] LABCLIA [id number] [place] [address] Basophils/100 WBC (Bld) 5.0 % Normal [facility] Comment on above: Order Comment: Speci men Type: BLOOD SPECIMENOrdering Facility: [facility] Address: [address] [place] [address] Performed By: #### 5 7021-8 ####[facility] LABCLIA [id number] [address] LABCLIA [id number] [place] [address] Differential cell count method Nom (Bld) Manual Normal [facility] Comment on above: Order Comment: Speci men Type: BLOOD SPECIMENOrdering Facility: [facility] Address: [address] [place] [address] Performed By: #### 5 7021-8 ####[facility] LABCLIA [id number] [address] LABCLIA [id number] [place] [address] Eosinophils (Bld) [#/Vol] 0.02 10*3/uL Normal <0.46 [facility] Comment on above: Order Comment: Speci men Type: BLOOD SPECIMENOrdering Facility: [facility] Address: [address] [place] [address] Performed By: #### 5 7021-8 ####[facility] LABCLIA [id number] [address] LABCLIA [id number] [place] [address] Eosinophils/100 WBC (Bld) 1.0 % Normal [facility] Comment on above: Order Comment: Speci men Type: BLOOD SPECIMENOrdering Facility: [facility] Address: [address] [place] [address] Performed By: #### 5 7021-8 ####[facility] LABCLIA [id number] [address] LABCLIA [id number] [place] [address] Erythrocyte distribution width (RBC) [Ratio] 16.9 % High 11.5-15.0 [facility] Comment on above: Order Comment: Speci men Type: BLOOD SPECIMENOrdering Facility: [facility] Address: [address] [place] [address] Performed By: #### 5 7021-8 ####[facility] LABCLIA [id number] [address] LABCLIA [id number] [place] [id number] Giant platelets LM Ql (Bld) Occasional Normal [facility] Comment on above: Order Comment: Speci men Type: BLOOD SPECIMENOrdering Facility: [facility] Address: [address] [place] [address] Performed By: #### 5 7021-8 ####[facility] LABCLIA [id number] [address] LABCLIA [id number] [place] [id number] Hematocrit (Bld) [Volume fraction] 25.1 % Low 39.0-51.0 [facility] Comment on above: Order Comment: Speci men Type: BLOOD SPECIMENOrdering Facility: [facility] Address: [address] [place] [address] Performed By: #### 5 7021-8 ####[facility] LABCLIA [id number] [address] [facility] LABCLIA [id number] [place] [address] Hemoglobin (Bld) [Mass/Vol] 7.9 g/dL Low 13.0-17.0 [facility] Comment on above: Order Comment: Speci men Type: BLOOD SPECIMENOrdering Facility: [facility] Address: [address] [place] [address] Performed By: #### 5 7021-8 ####[facility] LABCLIA [id number] [address] LABCLIA [id number] [place] [address] Lymphocytes (Bld) [#/Vol] 0.66 10*3/uL Low 1.00-4.00 [facility] Comment on above: Order Comment: Speci men Type: BLOOD SPECIMENOrdering Facility: [facility] Address: [address] [place] [address] Performed By: #### 5 7021-8 ####[facility] LABCLIA [id number] [address] LABCLIA [id number] [place] [address] Lymphocytes/100 WBC (Bld) 40.0 % Normal [facility] [facility] Comment on above: Order Comment: Speci men Type: BLOOD SPECIMENOrdering Facility: [facility] Address: [address] [place] [address] Performed By: #### 5 7021-8 ####[facility] LABCLIA [id number] [address] LABCLIA [id number] [place] [address] MCH (RBC) [Entitic mass] 30.9 pg Normal 26.0-34.0 [facility] Comment on above: Order Comment: Speci men Type: BLOOD SPECIMENOrdering Facility: [facility] Address: [address] [address] Performed By: #### 5 7021-8 ####[facility] LABCLIA [id number] [address] LABCLIA [id number] [place] [address] MCHC (RBC) [Mass/Vol] 31.5 g/dL Normal 30.5-36.0 [facility] Comment on above: Order Comment: Speci men Type: BLOOD SPECIMENOrdering Facility: [facility] Address: [address] [place] [address] Performed By: #### 5 7021-8 ####[facility] LABCLIA [id number] [address] LABCLIA [id number] [place] [address] MCV (RBC) [Entitic vol] 98.0 fL Normal 80.0-100.0 [facility] Comment on above: Order Comment: Speci men Type: BLOOD SPECIMENOrdering Facility: [facility] Address: [address] [place] [address] Performed By: #### 5 7021-8 ####[facility] LABCLIA [id number] [address] LABCLIA [id number] [place] [id number] Monocytes (Bld) [#/Vol] 0.17 10*3/uL Normal <0.87 [facility] Comment on above: Order Comment: Speci men Type: BLOOD SPECIMENOrdering Facility: [facility] Address: [address] [place], [place] [address] Performed By: #### 5 7021-8 ####[facility] LABCLIA [id number] [place] [address] [id number] LABCLIA [id number] [place] [address] Monocytes/100 WBC (Bld) 10.0 % Normal [facility] Comment on above: Order Comment: Speci men Type: BLOOD SPECIMENOrdering Facility: [facility] Address: [address] [place] [address] Performed By: #### 5 7021-8 ####[facility] LABCLIA [id number] [address] LABCLIA [id number] [place] [address] Neutrophils (Bld) [#/Vol] 0.73 10*3/uL Low 1.45-7.50 [facility] Comment on above: Order Comment: Speci men Type: BLOOD SPECIMENOrdering Facility: [facility] Address: [address] [place], [place] [address] Performed By: #### 5 7021-8 ####[facility] LABCLIA [id number] [address] LABCLIA [id number] [place] [address] Neutrophils/100 WBC (Bld) 44.0 % Normal [facility] Comment on above: Order Comment: Speci men Type: BLOOD SPECIMENOrdering Facility: [facility] Address: [address] [place], [place] [address] Performed By: #### 5 7021-8 ####[facility] LABCLIA [id number] [address] LABCLIA [id number] [place] [address] Nucleated RBC (Bld) [#/Vol] 10*3/uL Normal <0.01 [facility] Comment on above: Order Comment: Speci men Type: BLOOD SPECIMENOrdering Facility: [facility] Address: [address] [place] [address] Result Comment: This result was previously suppressed from the chart. Performed By: #### 5 7021-8 ####[facility] LABCLIA [id number] [address] LABCLIA [id number] [place] [address] Nucleated RBC/100 WBC (Bld) [Ratio] 0.0 /100 WBC Normal [facility] Comment on above: Order Comment: Speci men Type: BLOOD SPECIMENOrdering Facility: [facility] Address: [address] [address] Performed By: #### 5 7021-8 ####[facility] LABCLIA [id number] [address] LABCLIA [id number] [place] [address] Ovalocytes LM Ql (Bld) Few Normal [facility] Comment on above: Order Comment: Speci men Type: BLOOD SPECIMENOrdering Facility: [facility] Address: [address] [place] [address] Performed By: #### 5 7021-8 ####[facility] LABCLIA [id number] [address] LABCLIA [id number] [place] [address] Platelet mean volume (Bld) [Entitic vol] Normal [facility] Comment on above: Order Comment: Speci men Type: BLOOD SPECIMENOrdering Facility: [facility] Address: [address] [place] [address] Result Comment: Unab le to Report. Performed By: #### 5 7021-8 ####[facility] LABCLIA [id number] [address] LABCLIA [id number] [place] [address] Platelets (Bld) [#/Vol] 65 10*3/uL Low 150-400 [facility] Comment on above: Order Comment: Speci men Type: BLOOD SPECIMENOrdering Facility: [facility] Address: [address] [place] [address] Performed By: #### 5 7021-8 ####[facility] LABCLIA [id number] [address] LABCLIA [id number] [place] [address] Platelets Estimate (Bld) [#/Vol] Decreased Normal [facility] Comment on above: Order Comment: Speci men Type: BLOOD SPECIMENOrdering Facility: [facility] Address: [address] [place] [address] Performed By: #### 5 7021-8 ####[facility] LABCLIA [id number] [address] LABCLIA [id number] [place] [address] RBC (Bld) [#/Vol] 2.56 10*6/uL Low 4.20-6.00 [facility] Comment on above: Order Comment: Speci men Type: BLOOD SPECIMENOrdering Facility: [facility] Address: [address] [place], [place] [address] Performed By: #### 5 7021-8 ####[facility] LABIA [id number] [address] LABIA [id number] [place] [address] RED CELL MORPH Reviewed: see result s of individual morphologies Normal [facility] Comment on above: Order Comment: Speci men Type: BLOOD SPECIMENOrdering Facility: [facility] Address: [address] [place], [place] [address] Performed By: #### 5 7021-8 ####[facility] LABCLIA [id number] [address] LABCLIA [id number] [place] [address] WBC (Bld) [#/Vol] 1.65 10*3/uL Low 3.70-11.00 [facility] Comment on above: Order Comment: Speci men Type: BLOOD SPECIMENOrdering Facility: [facility] Address: [address] Performed By: #### 5 7021-8 ####[facility] LABCLIA [id number] [address] LABCLIA [id number] [place] [address] CNOVSPon 07-15-2022 CNOVSP Normal [facility] CNPNon 07-15-2022 CNPN Normal [facility] Comprehensive metabolic 2000 panelon 07-15-2022 Albumin [Mass/Vol] 3.8 g/dL Low 3.9-4.9 [facility] Comment on above: Order Comment: Speci men Type: BLOOD SPECIMENOrdering Facility: [facility] Address: [address] Performed By: #### 2 4323-8, 2531-0 ####[facility] LABCLIA [id number] [place] [address] ALP [Catalytic activity/Vol] 114 U/L High 38-113 [facility] Comment on above: Order Comment: Speci men Type: BLOOD SPECIMENOrdering Facility: [facility] Address: [address] Performed By: #### 2 4323-8, 2532-0 ####[facility] LABCLIA [id number] [place] [address] ALT [Catalytic activity/Vol] 39 U/L Normal 10-54 [facility] Comment on above: Order Comment: Speci men Type: BLOOD SPECIMENOrdering Facility: [facility] Address: [address] [address] Performed By: #### 2 4323-8, 2531-0 ####[facility] LABCLIA [id number] [place] [address] Anion gap [Moles/Vol] 10 mmol/L Normal 9-18 [facility] Comment on above: Order Comment: Speci men Type: BLOOD SPECIMENOrdering Facility: [facility] Address: [address] [place] [address] Performed By: #### 2 432-8, 2531-0 ####[facility] LABCLIA [id number] [place] [address] AST [Catalytic activity/Vol] 18 U/L Normal 14-40 [facility] Comment on above: Order Comment: Speci men Type: BLOOD SPECIMENOrdering Facility: [facility] Address: [address] [place] [address] Performed By: #### 2 4323-8, 2531-0 ####[facility] LABCLIA [id number] [place] [address] Bilirubin [Mass/Vol] 0.9 mg/dL Normal 0.2-1.3 [facility] Comment on above: Order Comment: Speci men Type: BLOOD SPECIMENOrdering Facility: [facility] Address: [address] [place] [address] Performed By: #### 2 4323-8, 2531-0 ####[facility] LABCLIA [id number] [place] [address] Calcium [Mass/Vol] 9.0 mg/dL Normal 8.5-10.2 [facility] Comment on above: Order Comment: Speci men Type: BLOOD SPECIMENOrdering Facility: [facility] Address: [address] [place], [place] [address] Performed By: #### 2 4323-8, 2531-0 ####[facility] LABCLIA [id number] [place] [address] Chloride [Moles/Vol] 104 mmol/L Normal 97-105 [facility] Comment on above: Order Comment: Speci men Type: BLOOD SPECIMENOrdering Facility: [facility] Address: [address] [place] [address] Performed By: #### 2 4323-8, 2531-0 ####[facility] LABCLIA [id number] [place] [address] CO2 [Moles/Vol] 32 mmol/L High 22-30 [facility] Comment on above: Order Comment: Speci men Type: BLOOD SPECIMENOrdering Facility: [facility] Address: [address] [place] [address] Performed By: #### 2 4323-8, 2531-0 ####[facility] LABCLIA [id number] [place] [address] Creatinine [Mass/Vol] 1.56 mg/dL High 0.73-1.22 [facility] Comment on above: Order Comment: Speci men Type: BLOOD SPECIMENOrdering Facility: [facility] Address: [address] [place] [address] Performed By: #### 2 4323-8, 0 ####[facility] LABIA [id number] [place] [address] ESTIMATED GLOMERULAR FILTRATION RATE 44 mL/min/1.73m??? Low >=60 [facility] Comment on above: Order Comment: Speci men Type: BLOOD SPECIMENOrdering Facility: [facility] Address: [address] [place] [address] Result Comment: Faye mated Glomerular Filtration Rate [...] actual GFR. Performed By: #### 2 4323-8, ####[facility] LABCLIA [id number] [place] [address] Glucose [Mass/Vol] 147 mg/dL High 74-99 [facility] Comment on above: Order Comment: Speci men Type: BLOOD SPECIMENOrdering Facility: [facility] Address: [address] [place] [address] Result Comment: The [place] [employer] (ADA) provides guidance for cutoff [...] Standards of Medical Care in Diabetes 2016, [place] [employer]. Diabetes Care. 2016.39(Suppl 1). Performed By: #### 2 4323-8, ####[facility] LABCLIA [id number] [place] [address] Potassium [Moles/Vol] 4.1 mmol/L Normal 3.7-5.1 [facility] Comment on above: Order Comment: Speci men Type: BLOOD SPECIMENOrdering Facility: [facility] Address: [address] [place] [address] Performed By: #### 2 4323-8, 0 ####[facility] LABCLIA [id number] [place] [address] Protein [Mass/Vol] 6.3 g/dL Normal 6.3-8.0 [facility] Comment on above: Order Comment: Speci men Type: BLOOD SPECIMENOrdering Facility: [facility] Address: [address] [place] [address] Performed By: #### 2 4323-8, 2531-0 ####[facility] LABCLIA [id number] [place] [address] Sodium [Moles/Vol] 146 mmol/L High 136-144 [facility] Comment on above: Order Comment: Speci men Type: BLOOD SPECIMENOrdering Facility: [facility] Address: [address] [place] [address] Performed By: #### 2 [address], 2531-0 ####[facility] LABCLIA [id number] [place] [address] Urea nitrogen [Mass/Vol] 24 mg/dL Normal 9-24 [facility] Comment on above: Order Comment: Speci men Type: BLOOD SPECIMENOrdering Facility: [facility] Address: [address] [place] [address] Performed By: #### 2 4328, 2531-0 ####[facility] LABIA [id number] [place] [address] LDH [facility] 07-15-2022 LDH [Catalytic activity/Vol] 203 U/L Normal 135-225 [facility] Comment on above: Order Comment: Speci men Type: BLOOD SPECIMENOrdering Facility: [facility] Address: [address] [place] [address] Result Comment: Hemo lysis present. The origin [...] indicated. Performed By: #### 2 4323-8, 2532-0 ####[facility] LABCLIA [id number] [place] [address] CNPNon 07-11-2022 CNPN Normal [facility] TYPE AND SCREENon 07-09-2022 TYPE AND SCREEN Negative Normal [facility] Comment on above: Performed By: #### P RBC, TNS #### [facility] [address] [place], [place] [address] Dr. Benito To CBC W Auto Differential pane l (Bld)on 07-08-2022 Anisocytosis Ql (Bld) Present Normal [facility] Comment on above: Order Comment: Speci men Type: BLOOD SPECIMENOrdering Facility: [facility] Address: [address] [address] Performed By: #### 5 7021-8 ####[facility] LABCLIA [id number] [address] LABCLIA [id number] [place] [address] Basophils (Bld) [#/Vol] 0.10 10*3/uL Normal <0.11 [facility] Comment on above: Order Comment: Speci men Type: BLOOD SPECIMENOrdering Facility: [facility] Address: [address] [place] [address] Performed By: #### 5 7021-8 ####[facility] LABCLIA [id number] [address] LABCLIA [id number] [place] [address] Basophils/100 WBC (Bld) 6.0 % Normal [facility] Comment on above: Order Comment: Speci men Type: BLOOD SPECIMENOrdering Facility: [facility] Address: [address] [place] [address] Performed By: #### 5 7021-8 ####[facility] LABCLIA [id number] [address] LABCLIA [id number] [place] [address] Differential cell count method Nom (Bld) Manual Normal [facility] Comment on above: Order Comment: Speci men Type: BLOOD SPECIMENOrdering Facility: [facility] Address: [address] [place] [address] Performed By: #### 5 7021-8 ####[facility] LABCLIA [id number] [address] LABCLIA [id number] [place] [address] Eosinophils (Bld) [#/Vol] 0.05 10*3/uL Normal <0.46 [facility] Comment on above: Order Comment: Speci men Type: BLOOD SPECIMENOrdering Facility: [facility] Address: [address] [place] [address] Performed By: #### 5 7021-8 ####[facility] LABCLIA [id number] [address] LABCLIA [id number] [place] [address] Eosinophils/100 WBC (Bld) 3.0 % Normal [facility] Comment on above: Order Comment: Speci men Type: BLOOD SPECIMENOrdering Facility: [facility] Address: [address] [place] [address] Performed By: #### 5 7021-8 ####[facility] LABCLIA [id number] [address] LABCLIA [id number] [place] [address] Erythrocyte distribution width (RBC) [Ratio] 18.2 % High 11.5-15.0 [facility] Comment on above: Order Comment: Speci men Type: BLOOD SPECIMENOrdering Facility: [facility] Address: [address] [place] [address] Performed By: #### 5 7021-8 ####[facility] LABCLIA [id number] [address] LABCLIA [id number] [place] [address] Hematocrit (Bld) [Volume fraction] 23.2 % Low 39.0-51.0 [facility] Comment on above: Order Comment: Speci men Type: BLOOD SPECIMENOrdering Facility: [facility] Address: [address] [place] [address] Performed By: #### 5 7021-8 ####[facility] LABCLIA [id number] [address] LABCLIA [id number] [place] [address] Hemoglobin (Bld) [Mass/Vol] 7.4 g/dL Low 13.0-17.0 [facility] Comment on above: Order Comment: Speci men Type: BLOOD SPECIMENOrdering Facility: [facility] Address: [address] [place] [address] Performed By: #### 5 7021-8 ####[facility] LABCLIA [id number] [address] LABCLIA [id number] [place] [address] Lymphocytes (Bld) [#/Vol] 0.69 10*3/uL Low 1.00-4.00 [facility] Comment on above: Order Comment: Speci men Type: BLOOD SPECIMENOrdering Facility: [facility] Address: [address] [place] [address] Performed By: #### 5 7021-8 ####[facility] LABCLIA [id number] [address] LABCLIA [id number] [place] [address] Lymphocytes/100 WBC (Bld) 42.0 % Normal [facility] Comment on above: Order Comment: Speci men Type: BLOOD SPECIMENOrdering Facility: [facility] Address: [address] [place] [address] Performed By: #### 5 7021-8 ####[facility] LABCLIA [id number] [address] LABCLIA [id number] [place] [address] MCH (RBC) [Entitic mass] 31.8 pg Normal 26.0-34.0 [facility] Comment on above: Order Comment: Speci men Type: BLOOD SPECIMENOrdering Facility: [facility] Address: [address] [place] [address] Performed By: #### 5 7021-8 ####[facility] LABCLIA [id number] [address] LABCLIA [id number] [place] [address] MCHC (RBC) [Mass/Vol] 31.9 g/dL Normal 30.5-36.0 [facility] Comment on above: Order Comment: Speci men Type: BLOOD SPECIMENOrdering Facility: [facility] Address: [address] [place] [address] Performed By: #### 5 7021-8 ####[facility] LABCLIA [id number] [address] LABCLIA [id number] [place] [address] MCV (RBC) [Entitic vol] 99.6 fL Normal 80.0-100.0 [facility] Comment on above: Order Comment: Speci men Type: BLOOD SPECIMENOrdering Facility: [facility] Address: [address] [place] [address] Performed By: #### 5 7021-8 ####[facility] LABCLIA [id number] [address] LABCLIA [id number] [place] [address] Monocytes (Bld) [#/Vol] 0.15 10*3/uL Normal <0.87 [facility] Comment on above: Order Comment: Speci men Type: BLOOD SPECIMENOrdering Facility: [facility] Address: [address] [place] [address] Performed By: #### 5 7021-8 ####[facility] LABCLIA [id number] [address] LABCLIA [id number] [place] [address] Monocytes/100 WBC (Bld) 9.0 % Normal [facility] Comment on above: Order Comment: Speci men Type: BLOOD SPECIMENOrdering Facility: [facility] Address: [address] [place] [address] Performed By: #### 5 7021-8 ####[facility] LABCLIA [id number] [address] LABCLIA [id number] [place] [address] Neutrophils (Bld) [#/Vol] 0.66 10*3/uL Low 1.45-7.50 [facility] Comment on above: Order Comment: Speci men Type: BLOOD SPECIMENOrdering Facility: [facility] Address: [address] [place], [place] [address] Performed By: #### 5 7021-8 ####[facility] LABCLIA [id number] [address] LABCLIA [id number] [place] [address] Neutrophils/100 WBC (Bld) 40.0 % Normal [facility] Comment on above: Order Comment: Speci men Type: BLOOD SPECIMENOrdering Facility: [facility] Address: [address] [place] [address] Performed By: #### 5 7021-8 ####[facility] LABCLIA [id number] [address] LABCLIA [id number] [place] [address] Nucleated RBC (Bld) [#/Vol] 10*3/uL Normal <0.01 [facility] Comment on above: Order Comment: Speci men Type: BLOOD SPECIMENOrdering Facility: [facility] Address: [address] [place] [address] Result Comment: This result was previously suppressed from the chart. Performed By: #### 5 7021-8 ####[facility] LABCLIA [id number] [address] LABCLIA [id number] [place] [address] Nucleated RBC/100 WBC (Bld) [Ratio] 0.0 /100 WBC Normal [facility] Comment on above: Order Comment: Speci men Type: BLOOD SPECIMENOrdering Facility: [facility] Address: [address] [place] [address] Performed By: #### 5 7021-8 ####[facility] LABCLIA [id number] [address] LABCLIA [id number] [place] [address] Ovalocytes LM Ql (Bld) Few Normal [facility] Comment on above: Order Comment: Speci men Type: BLOOD SPECIMENOrdering Facility: [facility] Address: [address] [place] [address] Performed By: #### 5 7021-8 ####[facility] LABCLIA [id number] [address] LABCLIA [id number] [place] [address] Platelet mean volume (Bld) [Entitic vol] Normal [facility] Comment on above: Order Comment: Speci men Type: BLOOD SPECIMENOrdering Facility: [facility] Address: [address] [place] [address] Result Comment: Unab le to Report. Performed By: #### 5 7021-8 ####[facility] LABCLIA [id number] [address] LABCLIA [id number] [place] [address] Platelets (Bld) [#/Vol] 65 10*3/uL Low 150-400 [facility] Comment on above: Order Comment: Speci men Type: BLOOD SPECIMENOrdering Facility: [facility] Address: [address] [place] [address] Result Comment: No c lot detected.Results checked and verified. Performed By: #### 5 7021-8 ####[facility] LABCLIA [id number] [address] LABCLIA [id number] [place] [address] Platelets Estimate (Bld) [#/Vol] Decreased Normal [facility] Comment on above: Order Comment: Speci men Type: BLOOD SPECIMENOrdering Facility: [facility] Address: [address] [place] [address] Performed By: #### 5 7021-8 ####[facility] LABCLIA [id number] [address] LABCLIA [id number] [place] [address] RBC (Bld) [#/Vol] 2.33 10*6/uL Low 4.20-6.00 [facility] Comment on above: Order Comment: Speci men Type: BLOOD SPECIMENOrdering Facility: [facility] Address: [address] [place] [address] Performed By: #### 5 7021-8 ####[facility] LABCLIA [id number] [address] LABCLIA [id number] [place] [address] RBC FRAGMENTS Few Abnormal None Seen [facility] Comment on above: Order Comment: Speci men Type: BLOOD SPECIMENOrdering Facility: [facility] Address: [address] [place] [address] Performed By: #### 5 7021-8 ####[facility] LABCLIA [id number] [address] LABCLIA [id number] [place] [address] RED CELL MORPH Reviewed: see result s of individual morphologies Normal [facility] Comment on above: Order Comment: Speci men Type: BLOOD SPECIMENOrdering Facility: [facility] Address: [address] [place] [address] Performed By: #### 5 7021-8 ####[facility] LABCLIA [id number] [address] LABCLIA [id number] [place] [address] WBC (Bld) [#/Vol] 1.64 10*3/uL Low 3.70-11.00 [facility] Comment on above: Order Comment: Speci men Type: BLOOD SPECIMENOrdering Facility: [facility] Address: [address] [place] [address] Result Comment: No c lot detected.Results checked and verified. Performed By: #### 5 7021-8 ####[facility] LABCLIA [id number] [facility] [id number] [address] [facility] LABCLIA [id number] [place] [address] CNOVSPon 07-08-2022 CNOVSP Normal [facility] CNPNon 07-08-2022 CNPN Normal [facility] Comprehensive metabolic 2000 panelon 07-08-2022 Albumin [Mass/Vol] 3.8 g/dL Low 3.9-4.9 [facility] Comment on above: Order Comment: Speci men Type: BLOOD SPECIMENOrdering Facility: [facility] Address: [address] [address] Performed By: #### 2 532-0, 99959-6 ####[facility] LABCLIA [id number] [place] [address] ALP [Catalytic activity/Vol] 117 U/L High 38-113 [facility] Comment on above: Order Comment: Speci men Type: BLOOD SPECIMENOrdering Facility: [facility] Address: [address] [address] Performed By: #### 2 532-0, ####[facility] LABCLIA [id number] [place] [address] ALT [Catalytic activity/Vol] 47 U/L Normal 10-54 [facility] Comment on above: Order Comment: Speci men Type: BLOOD SPECIMENOrdering Facility: [facility] Address: [address] Performed By: #### 2 532-0, ####[facility] LABIA [id number] [place] [address] Anion gap [Moles/Vol] 8 mmol/L Low 9-18 [facility] Comment on above: Order Comment: Speci men Type: BLOOD SPECIMENOrdering Facility: [facility] Address: [address] Performed By: #### 2 532-0, ####[facility] LABCLIA [id number] [place] [address] AST [Catalytic activity/Vol] 22 U/L Normal 14-40 [facility] Comment on above: Order Comment: Speci men Type: BLOOD SPECIMENOrdering Facility: [facility] Address: [address] [place] [address] Performed By: #### 2 532-0, ####[facility] LABCLIA [id number] [place] [address] Bilirubin [Mass/Vol] 0.8 mg/dL Normal 0.2-1.3 [facility] Comment on above: Order Comment: Speci men Type: BLOOD SPECIMENOrdering Facility: [facility] Address: [address] [place] [address] Performed By: #### 2 532-0, ####[facility] LABCLIA [id number] [place] [address] Calcium [Mass/Vol] 8.8 mg/dL Normal 8.5-10.2 [facility] Comment on above: Order Comment: Speci men Type: BLOOD SPECIMENOrdering Facility: [facility] Address: [address] [place] [address] Performed By: #### 2 532-0, ####[facility] LABCLIA [id number] [place] [address] Chloride [Moles/Vol] 103 mmol/L Normal 97-105 [facility] Comment on above: Order Comment: Speci men Type: BLOOD SPECIMENOrdering Facility: [facility] Address: [address] [place], [place] [address] Performed By: #### 2 532-0, ####[facility] LABCLIA [id number] [place] [address] CO2 [Moles/Vol] 32 mmol/L High 22-30 [facility] Comment on above: Order Comment: Speci men Type: BLOOD SPECIMENOrdering Facility: [facility] Address: [address] [address] Performed By: #### 2 532-0, ####[facility] LABCLIA [id number] [place] [address] Creatinine [Mass/Vol] 1.55 mg/dL High 0.73-1.22 [facility] Comment on above: Order Comment: Speci men Type: BLOOD SPECIMENOrdering Facility: [facility] Address: [address] [place] [address] Performed By: #### 2 532-0, ####[facility] LABCLIA [id number] [place] [address] ESTIMATED GLOMERULAR FILTRATION RATE 44 mL/min/1.73m??? Low >=60 [facility] Comment on above: Order Comment: Speci men Type: BLOOD SPECIMENOrdering Facility: [facility] Address: [address] [place] [address] Result Comment: Faye mated Glomerular Filtration Rate [...] actual GFR. Performed By: #### 2 532-0, ####[facility] LABCLIA [id number] [place] [address] Glucose [Mass/Vol] 130 mg/dL High 74-99 [facility] Comment on above: Order Comment: Speci men Type: BLOOD SPECIMENOrdering Facility: [facility] Address: [address] [place] [address] Result Comment: The [place] [employer] (ADA) provides guidance for cutoff [...] Standards of Medical Care in Diabetes 2016, [place] [employer]. Diabetes Care. 2016.39(Suppl 1). Performed By: #### 2 532-0, ####[facility] LABCLIA [id number] [place] [address] Potassium [Moles/Vol] 4.1 mmol/L Normal 3.7-5.1 [facility] Comment on above: Order Comment: Speci men Type: BLOOD SPECIMENOrdering Facility: [facility] Address: [address] [place] [address] Performed By: #### 2 532-0, ####[facility] LABIA [id number] [place] [address] Protein [Mass/Vol] 6.1 g/dL Low 6.3-8.0 [facility] Comment on above: Order Comment: Speci men Type: BLOOD SPECIMENOrdering Facility: [facility] Address: [address] [place] [address] Performed By: #### 2 532-0, ####[facility] LABCLIA [id number] [place] [address] Sodium [Moles/Vol] 143 mmol/L Normal 136-144 [facility] Comment on above: Order Comment: Speci men Type: BLOOD SPECIMENOrdering Facility: [facility] Address: [address] [address] Performed By: #### 2 532-0, ####[facility] LABCLIA [id number] [place] [address] Urea nitrogen [Mass/Vol] 20 mg/dL Normal 9-24 [facility] Comment on above: Order Comment: Speci men Type: BLOOD SPECIMENOrdering Facility: [facility] Address: [place] [address] Performed By: #### 2 532-0, 70663-5 ####[facility] LABCLIA [id number] [place] [address] HEMOGRAM AND PLATELon 2021 Hematocrit (Bld) [Volume fraction] 22.7 % Critically low 42.0-54.0 [facility] Comment on above: Performed By: #### T NS, PRBC #### [facility] [address] [place] [address] Dr. Benito To Hemoglobin (Bld) [Mass/Vol] 7.2 g/dL Critically low 14.0-18.0 [facility] Comment on above: Performed By: #### T NS, PRBC #### [facility] [address] [place] [address] Dr. Benito To MCH (RBC) [Entitic mass] 31.3 pg Normal 25.9-34.0 [facility] Comment on above: Performed By: #### T NS, PRBC #### [facility] [address] [place] [address] Dr. Benito To MCHC (RBC) [Mass/Vol] 31.7 g/dL Normal 29.9-35.2 [facility] Comment on above: Performed By: #### T NS, PRBC #### [facility] [address] [address] [address] Benito To MCV (RBC) [Entitic vol] 98.7 fL Critically high 80.0-94.0 [facility] Comment on above: Performed By: #### T NS, PRBC #### [facility] [address] [place] [address] Dr. Benito To PLT 66 103/ul Critically low 150-450 [facility] Comment on above: Performed By: #### T NS, PRBC #### [facility] [address] [place], [place] [address] Dr. Benito To RBC 2.30 106/ul Critically low 4.70-6.10 [facility] Comment on above: Performed By: #### T NS, PRBC #### [facility] [address] [place], [place] [address] Dr. Benito To WBC 1.7 103/ul Critically low 4.0-11.0 [facility] Comment on above: Performed By: #### T NS, PRBC #### [facility] [address] [place], [place] [address] Dr. Benito To LDH SerPl-cCncon 07-08-2022 LDH [Catalytic activity/Vol] 187 U/L Normal 135-225 [facility] Comment on above: Order Comment: Speci men Type: BLOOD SPECIMENOrdering Facility: [facility] Address: [address] [place] [address] Performed By: #### 2 532-0, 87811-7 ####[facility] LABCLIA [id number] [place] [address] CBC W Auto Differential pane l (Bld)on 07-01-2022 Anisocytosis Ql (Bld) Present Normal [facility] Comment on above: Order Comment: Speci men Type: BLOOD SPECIMENOrdering Facility: [facility] Address: [address] [place] [address] Performed By: #### 5 7021-8 ####[facility] LABCLIA [id number] [facility] [id number] LABCLIA [id number] [place] [address] Basophils (Bld) [#/Vol] 0.13 10*3/uL High <0.11 [facility] Comment on above: Order Comment: Speci men Type: BLOOD SPECIMENOrdering Facility: [facility] Address: [address] [place] [address] Performed By: #### 5 7021-8 ####[facility] LABCLIA [id number] [address] LABCLIA [id number] [place] [address] Basophils/100 WBC (Bld) 8.0 % Normal [facility] Comment on above: Order Comment: Speci men Type: BLOOD SPECIMENOrdering Facility: [facility] Address: [address] [place] [address] Performed By: #### 5 7021-8 ####[facility] LABCLIA [id number] [address] LABCLIA [id number] [place] [address] Differential cell count method Nom (Bld) Manual Normal [facility] Comment on above: Order Comment: Speci men Type: BLOOD SPECIMENOrdering Facility: [facility] Address: [address] [place] [address] Performed By: #### 5 7021-8 ####[facility] LABCLIA [id number] [address] LABCLIA [id number] [place] [address] Eosinophils (Bld) [#/Vol] 0.02 10*3/uL Normal <0.46 [facility] Comment on above: Order Comment: Speci men Type: BLOOD SPECIMENOrdering Facility: [facility] Address: [address] [place], [place] [address] Performed By: #### 5 7021-8 ####[facility] LABCLIA [id number] [address] LABCLIA [id number] [place] [address] Eosinophils/100 WBC (Bld) 1.0 % Normal [facility] Comment on above: Order Comment: Speci men Type: BLOOD SPECIMENOrdering Facility: [facility] Address: [address] [place] [address] Performed By: #### 5 7021-8 ####[facility] LABCLIA [id number] [address] LABCLIA [id number] [place] [address] Erythrocyte distribution width (RBC) [Ratio] 17.9 % High 11.5-15.0 [facility] Comment on above: Order Comment: Speci men Type: BLOOD SPECIMENOrdering Facility: [facility] Address: [address] [place] [address] Performed By: #### 5 7021-8 ####[facility] LABCLIA [id number] [address] LABCLIA [id number] [place] [address] Hematocrit (Bld) [Volume fraction] 25.8 % Low 39.0-51.0 [facility] Comment on above: Order Comment: Speci men Type: BLOOD SPECIMENOrdering Facility: [facility] Address: [address] [place] [address] Performed By: #### 5 7021-8 ####[facility] LABCLIA [id number] [address] LABCLIA [id number] [place] [address] Hemoglobin (Bld) [Mass/Vol] 8.3 g/dL Low 13.0-17.0 [facility] Comment on above: Order Comment: Speci men Type: BLOOD SPECIMENOrdering Facility: [facility] Address: [address] [place] [address] Performed By: #### 5 7021-8 ####[facility] LABCLIA [id number] [address] LABCLIA [id number] [place] [address] Lymphocytes (Bld) [#/Vol] 0.67 10*3/uL Low 1.00-4.00 [facility] Comment on above: Order Comment: Speci men Type: BLOOD SPECIMENOrdering Facility: [facility] Address: [address] [place] [address] Performed By: #### 5 7021-8 ####[facility] LABCLIA [id number] [address] LABCLIA [id number] [place] [address] Lymphocytes/100 WBC (Bld) 41.0 % Normal [facility] Comment on above: Order Comment: Speci men Type: BLOOD SPECIMENOrdering Facility: [facility] Address: [address] [place] [address] Performed By: #### 5 7021-8 ####[facility] LABCLIA [id number] [address] LABCLIA [id number] [place] [address] MCH (RBC) [Entitic mass] 31.7 pg Normal 26.0-34.0 [facility] Comment on above: Order Comment: Speci men Type: BLOOD SPECIMENOrdering Facility: [facility] Address: [address] [place] [address] Performed By: #### 5 7021-8 ####[facility] LABCLIA [id number] [address] LABCLIA [id number] [place] [address] MCHC (RBC) [Mass/Vol] 32.2 g/dL Normal 30.5-36.0 [facility] Comment on above: Order Comment: Speci men Type: BLOOD SPECIMENOrdering Facility: [facility] Address: [address] [place] [address] Performed By: #### 5 7021-8 ####[facility] LABCLIA [id number] [address] LABCLIA [id number] [place] [address] MCV (RBC) [Entitic vol] 98.5 fL Normal 80.0-100.0 [facility] Comment on above: Order Comment: Speci men Type: BLOOD SPECIMENOrdering Facility: [facility] Address: [address] [place] [address] Performed By: #### 5 7021-8 ####[facility] LABCLIA [id number] [address] LABCLIA [id number] [place] [address] Metamyelocytes/100 WBC (Bld) 2.0 % Normal [facility] Comment on above: Order Comment: Speci men Type: BLOOD SPECIMENOrdering Facility: [facility] Address: [address] [place] [address] Performed By: #### 5 7021-8 ####[facility] LABCLIA [id number] [address] LABCLIA [id number] [place] [address] Monocytes (Bld) [#/Vol] 0.08 10*3/uL Normal <0.87 [facility] Comment on above: Order Comment: Speci men Type: BLOOD SPECIMENOrdering Facility: [facility] Address: [address] [place] [address] Performed By: #### 5 7021-8 ####[facility] LABCLIA [id number] [address] LABCLIA [id number] [place] [address] Monocytes/100 WBC (Bld) 5.0 % Normal [facility] Comment on above: Order Comment: Speci men Type: BLOOD SPECIMENOrdering Facility: [facility] Address: [address] [place] [address] Performed By: #### 5 7021-8 ####[facility] LABCLIA [id number] [address] LABCLIA [id number] [place] [address] MYELO% 1.0 % Normal [facility] Comment on above: Order Comment: Speci men Type: BLOOD SPECIMENOrdering Facility: [facility] Address: [address] [place] [address] Performed By: #### 5 7021-8 ####[facility] LABCLIA [id number] [address] LABCLIA [id number] [place] [address] Neutrophils (Bld) [#/Vol] 0.68 10*3/uL Low 1.45-7.50 [facility] Comment on above: Order Comment: Speci men Type: BLOOD SPECIMENOrdering Facility: [facility] Address: [address] [place], [place] [address] Performed By: #### 5 7021-8 ####[facility] LABCLIA [id number] [address] LABCLIA [id number] [place] [address] Neutrophils/100 WBC (Bld) 42.0 % Normal [facility] Comment on above: Order Comment: Speci men Type: BLOOD SPECIMENOrdering Facility: [facility] Address: [address] [place] [address] Performed By: #### 5 7021-8 ####[facility] LABCLIA [id number] [address] LABCLIA [id number] [place] [address] Nucleated RBC (Bld) [#/Vol] 10*3/uL Normal <0.01 [facility] Comment on above: Order Comment: Speci men Type: BLOOD SPECIMENOrdering Facility: [facility] Address: [address] [place] [address] Performed By: #### 5 7021-8 ####[facility] LABCLIA [id number] [address] LABCLIA [id number] [place] [address] Nucleated RBC/100 WBC (Bld) [Ratio] 0.0 /100 WBC Normal [facility] Comment on above: Order Comment: Speci men Type: BLOOD SPECIMENOrdering Facility: [facility] Address: [address] [place] [address] Performed By: #### 5 7021-8 ####[facility] LABCLIA [id number] [address] LABCLIA [id number] [place] [address] Ovalocytes LM Ql (Bld) Few Normal [facility] Comment on above: Order Comment: Speci men Type: BLOOD SPECIMENOrdering Facility: [facility] Address: [address] [place] [address] Performed By: #### 5 7021-8 ####[facility] LABCLIA [id number] [place] [id number] [facility] LABCLIA [id number] [place] [address] Platelet mean volume (Bld) [Entitic vol] Normal [facility] Comment on above: Order Comment: Speci men Type: BLOOD SPECIMENOrdering Facility: [facility] Address: [address] [place] [address] Result Comment: Unab le to Report. Performed By: #### 5 7021-8 ####[facility] LABCLIA [id number] [address] LABCLIA [id number] [place] [address] Platelets (Bld) [#/Vol] 72 10*3/uL Low 150-400 [facility] Comment on above: Order Comment: Speci men Type: BLOOD SPECIMENOrdering Facility: [facility] Address: [address] [place] [address] Result Comment: Resu lts checked and verified. No clot detected Performed By: #### 5 7021-8 ####[facility] LABCLIA [id number] [address] LABCLIA [id number] [place] [address] Platelets Estimate (Bld) [#/Vol] Decreased Normal [facility] Comment on above: Order Comment: Speci men Type: BLOOD SPECIMENOrdering Facility: [facility] Address: [address] [place] [address] Performed By: #### 5 7021-8 ####[facility] LABCLIA [id number] [address] LABCLIA [id number] [place] [address] RBC (Bld) [#/Vol] 2.62 10*6/uL Low 4.20-6.00 [facility] Comment on above: Order Comment: Speci men Type: BLOOD SPECIMENOrdering Facility: [facility] Address: [address] [place] [address] Performed By: #### 5 7021-8 ####[facility] LABCLIA [id number] [address] LABCLIA [id number] [place] [address] RED CELL MORPH Reviewed: see result s of individual morphologies Normal [facility] Comment on above: Order Comment: Speci men Type: BLOOD SPECIMENOrdering Facility: [facility] Address: [address] [place] [address] Performed By: #### 5 7021-8 ####[facility] LABCLIA [id number] [address] LABCLIA [id number] [place] [address] WBC (Bld) [#/Vol] 1.63 10*3/uL Low 3.70-11.00 [facility] Comment on above: Order Comment: Speci men Type: BLOOD SPECIMENOrdering Facility: [facility] Address: [address] [place] [address] Result Comment: Resu lts checked and verified. No clot detected Performed By: #### 5 7021-8 ####[facility] LABCLIA [id number] [address] LABCLIA [id number] [place] [address] WBC Left Shift Ql (Bld) Present Normal [facility] Comment on above: Order Comment: Speci men Type: BLOOD SPECIMENOrdering Facility: [facility] Address: [address] [place] [address] Performed By: #### 5 7021-8 ####[facility] LABCLIA [id number] [address] LABCLIA [id number] [place] [address] CNOVSPon 07-01-2022 CNOVSP Normal [facility] metabolic 2000 panelon 07-01-2022 Albumin [Mass/Vol] 3.8 g/dL Low 3.9-4.9 [facility] Comment on above: Order Comment: Speci men Type: BLOOD SPECIMENOrdering Facility: [facility] Address: [address] [place] [address] Performed By: #### 2 4323-8 ####[facility] LABCLIA [id number] [place] [address] ALP [Catalytic activity/Vol] 118 U/L High 38-113 [facility] Comment on above: Order Comment: Speci men Type: BLOOD SPECIMENOrdering Facility: [facility] Address: [address] [place] [address] Performed By: #### 2 4323-8 ####[facility] LABCLIA [id number] [place] [address] ALT [Catalytic activity/Vol] 44 U/L Normal 10-54 [facility] Comment on above: Order Comment: Speci men Type: BLOOD SPECIMENOrdering Facility: [facility] Address: [address] [place] [address] Performed By: #### 2 4323-8 ####[facility] LABCLIA [id number] [place] [address] Anion gap [Moles/Vol] 8 mmol/L Low 9-18 [facility] Comment on above: Order Comment: Speci men Type: BLOOD SPECIMENOrdering Facility: [facility] Address: [address] [place] [address] Performed By: #### 2 4323-8 ####[facility] LABCLIA [id number] [place] [address] AST [Catalytic activity/Vol] 20 U/L Normal 14-40 [facility] Comment on above: Order Comment: Speci men Type: BLOOD SPECIMENOrdering Facility: [facility] Address: [address] [address] Performed By: #### 2 4323-8 ####[facility] LABCLIA [id number] [place] [address] Bilirubin [Mass/Vol] 1.0 mg/dL Normal 0.2-1.3 [facility] Comment on above: Order Comment: Speci men Type: BLOOD SPECIMENOrdering Facility: [facility] Address: [address] [address] Performed By: #### 2 4323-8 ####[facility] LABCLIA [id number] [place] [address] Calcium [Mass/Vol] 8.8 mg/dL Normal 8.5-10.2 [facility] Comment on above: Order Comment: Speci men Type: BLOOD SPECIMENOrdering Facility: [facility] Address: [address] [place] [address] Performed By: #### 2 4323-8 ####[facility] [facility] LABCLIA [id number] [place] [address] Chloride [Moles/Vol] 103 mmol/L Normal 97-105 [facility] Comment on above: Order Comment: Speci men Type: BLOOD SPECIMENOrdering Facility: [facility] Address: [address] [address] Performed By: #### 2 4323-8 ####[facility] LABCLIA [id number] [place] [address] CO2 [Moles/Vol] 32 mmol/L High 22-30 [facility] Comment on above: Order Comment: Speci men Type: BLOOD SPECIMENOrdering Facility: [facility] Address: [address] [place] [address] Performed By: #### 2 4323-8 ####[facility] LABCLIA [id number] [place] [address] Creatinine [Mass/Vol] 1.43 mg/dL High 0.73-1.22 [facility] Comment on above: Order Comment: Davi avendaño Type: BLOOD SPECIMENOrdering Facility: [facility] Address: [address] [id number] Performed By: #### 2 4323-8 ####[facility] LABCLIA [id number] [place] [address] ESTIMATED GLOMERULAR FILTRATION RATE 49 mL/min/1.73m??? Low >=60 [facility] Comment on above: Order Comment: Davi kateryna Type: BLOOD SPECIMENOrdering Facility: [facility] Address: [address] [address] Result Comment: Faye mated Glomerular Filtration Rate [...] actual GFR. Performed By: #### 2 4323-8 ####[facility] LABCLIA [id number] [place] [address] Glucose [Mass/Vol] 123 mg/dL High 74-99 [facility] Comment on above: Order Comment: Davi kateryna Type: BLOOD SPECIMENOrdering Facility: [facility] Address: [address] [address] Result Comment: The [place] [employer] (ADA) provides guidance for cutoff [...] Standards of Medical Care in Diabetes 2016, [place] [employer]. Diabetes Care. 2016.39(Suppl 1). Performed By: #### 2 4323-8 ####[facility] LABCLIA [id number] [place] [address] Potassium [Moles/Vol] 3.9 mmol/L Normal 3.7-5.1 [facility] Comment on above: Order Comment: Speci men Type: BLOOD SPECIMENOrdering Facility: [facility] Address: [address] [place] [address] Performed By: #### 2 4323-8 ####[facility] LABCLIA [id number] [place] [address] Protein [Mass/Vol] 6.2 g/dL Low 6.3-8.0 [facility] Comment on above: Order Comment: Speci men Type: BLOOD SPECIMENOrdering Facility: [facility] Address: [address] [place] [address] Performed By: #### 2 4323-8 ####[facility] LABCLIA [id number] [place] [address] Sodium [Moles/Vol] 143 mmol/L Normal 136-144 [facility] Comment on above: Order Comment: Speci men Type: BLOOD SPECIMENOrdering Facility: [facility] Address: [address] [place] [address] Performed By: #### 2 4323-8 ####[facility] LABCLIA [id number] [place] [address] Urea nitrogen [Mass/Vol] 21 mg/dL Normal 9-24 [facility] Comment on above: Order Comment: Speci men Type: BLOOD SPECIMENOrdering Facility: [facility] Address: [address] [place] [address] Performed By: #### 2 4323-8 ####[facility] LABCLIA [id number] [place] [address] LDH SerPl-cCncon 07-01-2022 LDH [Catalytic activity/Vol] 200 U/L Normal 135-225 [facility] Comment on above: Order Comment: Speci men Type: BLOOD SPECIMENOrdering Facility: [facility] Address: [address] [place] [address] Performed By: #### 2 532-0 ####[facility] LABCLIA [id number] [address] [place] [address] HEMOGLOBIN AND HEMATOCRITon 06-25-2022 Hematocrit (Bld) [Volume fraction] 24.6 % Critically low 42.0-54.0 [facility] Comment on above: Performed By: #### T NS, PRBC #### [facility] [address] [place] [address] Dr. Benito To Hemoglobin (Bld) [Mass/Vol] 8.0 g/dL Critically low 14.0-18.0 [facility] Comment on above: Performed By: #### T NS, PRBC #### [facility] [address] [place] [address] Dr. Benito To TYPE AND SCREENon 06-25-2022 TYPE AND SCREEN Negative Normal [facility] Comment on above: Performed By: #### T NS, PRBC #### [facility] [address] [place] [address] Dr. Benito To CBC W Auto Differential pane l (Bld)on 06-24-2022 Anisocytosis Ql (Bld) Present Normal [facility] Comment on above: Order Comment: Speci men Type: BLOOD SPECIMENOrdering Facility: [facility] Address: [address] [place] [address] Performed By: #### 5 7021-8 ####[facility] LABCLIA [id number] [address] [address] LABCLIA [id number] [place] [address] [place] Basophils (Bld) [#/Vol] 0.04 10*3/uL Normal <0.11 [facility] Comment on above: Order Comment: Speci men Type: BLOOD SPECIMENOrdering Facility: [facility] Address: [address] [address] Performed By: #### 5 7021-8 ####[facility] LABCLIA [id number] [address] LABCLIA [id number] [place] [address] [place] Basophils/100 WBC (Bld) 2.0 % Normal [facility] Comment on above: Order Comment: Speci men Type: BLOOD SPECIMENOrdering Facility: [facility] Address: [address] [place] [address] Performed By: #### 5 7021-8 ####[facility] LABCLIA [id number] [address] LABCLIA [id number] [place] [address] [place] Differential cell count method Nom (Bld) Manual Normal [facility] Comment on above: Order Comment: Speci men Type: BLOOD SPECIMENOrdering Facility: [facility] Address: [address] [place] [address] Performed By: #### 5 7021-8 ####[facility] LABCLIA [id number] [address] LABCLIA [id number] [place] [address] [place] Eosinophils (Bld) [#/Vol] 0.02 10*3/uL Normal <0.46 [facility] Comment on above: Order Comment: Speci men Type: BLOOD SPECIMENOrdering Facility: [facility] Address: [address] [place] [address] Performed By: #### 5 7021-8 ####[facility] LABCLIA [id number] [address] LABCLIA [id number] [place] [address] [place] Eosinophils/100 WBC (Bld) 1.0 % Normal [facility] Comment on above: Order Comment: Speci men Type: BLOOD SPECIMENOrdering Facility: [facility] Address: [address] [place] [address] Performed By: #### 5 7021-8 ####[facility] LABCLIA [id number] [address] LABCLIA [id number] [place] [address] [place] Erythrocyte distribution width (RBC) [Ratio] 18.7 % High 11.5-15.0 [facility] Comment on above: Order Comment: Speci men Type: BLOOD SPECIMENOrdering Facility: [facility] Address: [address] [place] [address] Performed By: #### 5 7021-8 ####[facility] LABCLIA [id number] [address] LABCLIA [id number] [place] [address] [place] Hematocrit (Bld) [Volume fraction] 25.5 % Low 39.0-51.0 [facility] Comment on above: Order Comment: Speci men Type: BLOOD SPECIMENOrdering Facility: [facility] Address: [address] [place], [place] [address] Performed By: #### 5 7021-8 ####[facility] LABCLIA [id number] [address] LABCLIA [id number] [place] [address] [place] Hemoglobin (Bld) [Mass/Vol] 8.1 g/dL Low 13.0-17.0 [facility] Comment on above: Order Comment: Speci men Type: BLOOD SPECIMENOrdering Facility: [facility] Address: [address] Performed By: #### 5 7021-8 ####[facility] LABCLIA [id number] [address] LABCLIA [id number] [place] [address] [place] Lymphocytes (Bld) [#/Vol] 0.75 10*3/uL Low 1.00-4.00 [facility] Comment on above: Order Comment: Speci men Type: BLOOD SPECIMENOrdering Facility: [facility] Address: [address] [address] Performed By: #### 5 7021-8 ####[facility] LABCLIA [id number] [address] LABCLIA [id number] [place] [address] [place] Lymphocytes/100 WBC (Bld) 42.0 % Normal [facility] Comment on above: Order Comment: Speci men Type: BLOOD SPECIMENOrdering Facility: [facility] Address: [address] [place] [address] Performed By: #### 5 7021-8 ####[facility] LABCLIA [id number] [address] LABCLIA [id number] [place] [address] [place] MCH (RBC) [Entitic mass] 31.6 pg Normal 26.0-34.0 [facility] Comment on above: Order Comment: Speci men Type: BLOOD SPECIMENOrdering Facility: [facility] Address: [address] [place], [place] [address] Performed By: #### 5 7021-8 ####[facility] LABCLIA [id number] [address] LABCLIA [id number] [place] [address] [place] MCHC (RBC) [Mass/Vol] 31.8 g/dL Normal 30.5-36.0 [facility] Comment on above: Order Comment: Speci men Type: BLOOD SPECIMENOrdering Facility: [facility] Address: [address] [place] [address] Performed By: #### 5 7021-8 ####[facility] LABCLIA [id number] [address] LABCLIA [id number] [place] [address] [place] MCV (RBC) [Entitic vol] 99.6 fL Normal 80.0-100.0 [facility] Comment on above: Order Comment: Speci men Type: BLOOD SPECIMENOrdering Facility: [facility] Address: [address] [place], [place] [address] Performed By: #### 5 7021-8 ####[facility] LABCLIA [id number] [address] LABCLIA [id number] [place] [address] [place] Monocytes (Bld) [#/Vol] 0.14 10*3/uL Normal <0.87 [facility] Comment on above: Order Comment: Speci men Type: BLOOD SPECIMENOrdering Facility: [facility] Address: [address] [place], [place] [address] Performed By: #### 5 7021-8 ####[facility] LABCLIA [id number] [address] LABCLIA [id number] [place] [address] [place] Monocytes/100 WBC (Bld) 8.0 % Normal [facility] Comment on above: Order Comment: Speci men Type: BLOOD SPECIMENOrdering Facility: [facility] Address: [address] [place], [place] [address] Performed By: #### 5 7021-8 ####[facility] LABCLIA [id number] [address] LABCLIA [id number] [place] [address] [place] Neutrophils (Bld) [#/Vol] 0.84 10*3/uL Low 1.45-7.50 [facility] Comment on above: Order Comment: Speci men Type: BLOOD SPECIMENOrdering Facility: [facility] Address: [address] Performed By: #### 5 7021-8 ####[facility] LABCLIA [id number] [address] LABCLIA [id number] [place] [address] [place] Neutrophils/100 WBC (Bld) 47.0 % Normal [facility] Comment on above: Order Comment: Speci men Type: BLOOD SPECIMENOrdering Facility: [facility] Address: [address] Performed By: #### 5 7021-8 ####[facility] LABCLIA [id number] [address] LABCLIA [id number] [place] [address] [place] Nucleated RBC (Bld) [#/Vol] 10*3/uL Normal <0.01 [facility] Comment on above: Order Comment: Speci men Type: BLOOD SPECIMENOrdering Facility: [facility] Address: [address] Performed By: #### 5 7021-8 ####[facility] LABCLIA [id number] [address] LABCLIA [id number] [place] [address] [place] Nucleated RBC/100 WBC (Bld) [Ratio] 0.0 /100 WBC Normal [facility] Comment on above: Order Comment: Speci men Type: BLOOD SPECIMENOrdering Facility: [facility] Address: [address] [place] [address] Performed By: #### 5 7021-8 ####[facility] LABCLIA [id number] [address] LABCLIA [id number] [place] [address] [place] Ovalocytes LM Ql (Bld) Few Normal [facility] Comment on above: Order Comment: Speci men Type: BLOOD SPECIMENOrdering Facility: [facility] Address: [address] [place] [address] Performed By: #### 5 7021-8 ####[facility] LABCLIA [id number] [address] LABCLIA [id number] [place] [address] [place] Platelet mean volume (Bld) [Entitic vol] 14.0 fL High 9.0-12.7 [facility] Comment on above: Order Comment: Speci men Type: BLOOD SPECIMENOrdering Facility: [facility] Address: [address] [place], [place] [address] Performed By: #### 5 7021-8 ####[facility] LABCLIA [id number] [address] LABCLIA [id number] [place] [address] [place] Platelets (Bld) [#/Vol] 72 10*3/uL Low 150-400 [facility] Comment on above: Order Comment: Speci men Type: BLOOD SPECIMENOrdering Facility: [facility] Address: [address] [place], [place] [address] Result Comment: Samp le checked for clot Performed By: #### 5 7021-8 ####[facility] LABCLIA [id number] [address] LABCLIA [id number] [place] [address] [place] Platelets Estimate (Bld) [#/Vol] Decreased Normal [facility] Comment on above: Order Comment: Speci men Type: BLOOD SPECIMENOrdering Facility: [facility] Address: [address] [address] Performed By: #### 5 7021-8 ####[facility] LABCLIA [id number] [address] LABCLIA [id number] [place] [address] [place] RBC (Bld) [#/Vol] 2.56 10*6/uL Low 4.20-6.00 [facility] Comment on above: Order Comment: Speci men Type: BLOOD SPECIMENOrdering Facility: [facility] Address: [address] [address] Performed By: #### 5 7021-8 ####[facility] LABCLIA [id number] [address] LABCLIA [id number] [place] [address] [place] RBC FRAGMENTS Few Abnormal None Seen [facility] Comment on above: Order Comment: Speci men Type: BLOOD SPECIMENOrdering Facility: [facility] Address: [address] Performed By: #### 5 7021-8 ####[facility] LABCLIA [id number] [address] LABCLIA [id number] [place] [address] [place] RED CELL MORPH Reviewed: see result s of individual morphologies Normal [facility] Comment on above: Order Comment: Speci men Type: BLOOD SPECIMENOrdering Facility: [facility] Address: [address] [place] [address] Performed By: #### 5 7021-8 ####[facility] LABCLIA [id number] [place] [id number] LABCLIA [id number] [place] [address] [place] WBC (Bld) [#/Vol] 1.79 10*3/uL Low 3.70-11.00 [facility] Comment on above: Order Comment: Speci men Type: BLOOD SPECIMENOrdering Facility: [facility] Address: [address] [place] [address] Result Comment: Samp le checked for clot Performed By: #### 5 7021-8 ####[facility] LABCLIA [id number] [place] [address] LABCLIA [id number] [place] [address] [place] CNOVSPon 06-24-2022 CNOVSP Normal [facility] Comprehensive metabolic 2000 panelon 06-24-2022 Albumin [Mass/Vol] 3.7 g/dL Low 3.9-4.9 [facility] Comment on above: Order Comment: Speci men Type: BLOOD SPECIMENOrdering Facility: [facility] Address: [address] [place], [place] [address] Performed By: #### 2 532-0, 14293-3 ####[facility] LABCLIA [id number] [place] [address] ALP [Catalytic activity/Vol] 117 U/L High 38-113 [facility] Comment on above: Order Comment: Speci men Type: BLOOD SPECIMENOrdering Facility: [facility] Address: [address] [place] [address] Performed By: #### 2 532-0, ####[facility] LABCLIA [id number] [place] [address] ALT [Catalytic activity/Vol] 48 U/L Normal 10-54 [facility] Comment on above: Order Comment: Speci men Type: BLOOD SPECIMENOrdering Facility: [facility] Address: [address] [place] [address] Performed By: #### 2 532-0, ####[facility] LABCLIA [id number] [place] [address] Anion gap [Moles/Vol] 9 mmol/L Normal 9-18 [facility] Comment on above: Order Comment: Speci men Type: BLOOD SPECIMENOrdering Facility: [facility] Address: [address] [place] [address] Performed By: #### 2 532-0, ####[facility] LABCLIA [id number] [place] [address] AST [Catalytic activity/Vol] 22 U/L Normal 14-40 [facility] Comment on above: Order Comment: Speci men Type: BLOOD SPECIMENOrdering Facility: [facility] Address: [address] [place] [address] Performed By: #### 2 532-0, ####[facility] LABCLIA [id number] [place] [address] Bilirubin [Mass/Vol] 1.0 mg/dL Normal 0.2-1.3 [facility] Comment on above: Order Comment: Speci men Type: BLOOD SPECIMENOrdering Facility: [facility] Address: [address] [place] [address] Performed By: #### 2 532-0, ####[facility] LABCLIA [id number] [place] [address] Calcium [Mass/Vol] 8.6 mg/dL Normal 8.5-10.2 [facility] Comment on above: Order Comment: Speci men Type: BLOOD SPECIMENOrdering Facility: [facility] Address: [address] [address] Performed By: #### 2 532-0, ####[facility] LABCLIA [id number] [place] [address] Chloride [Moles/Vol] 105 mmol/L Normal 97-105 [facility] Comment on above: Order Comment: Speci men Type: BLOOD SPECIMENOrdering Facility: [facility] Address: [address] [place] [address] Performed By: #### 2 532-0, ####[facility] LABCLIA [id number] [place] [address] CO2 [Moles/Vol] 30 mmol/L Normal 22-30 [facility] Comment on above: Order Comment: Speci men Type: BLOOD SPECIMENOrdering Facility: [facility] Address: [address] [place] [address] Performed By: #### 2 532-0, ####[facility] LABCLIA [id number] [place] [address] Creatinine [Mass/Vol] 1.52 mg/dL High 0.73-1.22 [facility] Comment on above: Order Comment: Speci men Type: BLOOD SPECIMENOrdering Facility: [facility] Address: [address] [place] [address] Performed By: #### 2 532-0, ####[facility] LABCLIA [id number] [place] [address] ESTIMATED GLOMERULAR FILTRATION RATE 45 mL/min/1.73m??? Low >=60 [facility] Comment on above: Order Comment: Speci men Type: BLOOD SPECIMENOrdering Facility: [facility] Address: [address] [place] [address] Result Comment: Faye mated Glomerular Filtration Rate [...] actual GFR. Performed By: #### 2 532-0, 96842-1 ####[facility] LABCLIA [id number] [place] [address] Glucose [Mass/Vol] 122 mg/dL High 74-99 [facility] Comment on above: Order Comment: Davi avendaño Type: BLOOD SPECIMENOrdering Facility: [facility] Address: [address] [place] [address] Result Comment: The [place] [employer] (ADA) provides guidance for cutoff [...] Standards of Medical Care in Diabetes 2016, [place] [employer]. Diabetes Care. 2016.39(Suppl 1). Performed By: #### 2 532-0, 87486-4 ####[facility] LABCLIA [id number] [place] [address] Potassium [Moles/Vol] 3.6 mmol/L Low 3.7-5.1 [facility] Comment on above: Order Comment: Davi avendaño Type: BLOOD SPECIMENOrdering Facility: [facility] Address: [address] [place], [place] [address] Performed By: #### 2 532-0, 29931-0 ####[facility] LABCLIA [id number] [place] [address] Protein [Mass/Vol] 6.1 g/dL Low 6.3-8.0 [facility] Comment on above: Order Comment: Speci men Type: BLOOD SPECIMENOrdering Facility: [facility] Address: [address] [place] [address] Performed By: #### 2 532-0, ####[facility] LABCLIA [id number] [place] [address] Sodium [Moles/Vol] 144 mmol/L Normal 136-144 [facility] Comment on above: Order Comment: Speci men Type: BLOOD SPECIMENOrdering Facility: [facility] Address: [address] [place] [address] Performed By: #### 2 532-0, ####[facility] LABCLIA [id number] [place] [address] Urea nitrogen [Mass/Vol] 21 mg/dL Normal 9-24 [facility] Comment on above: Order Comment: Speci men Type: BLOOD SPECIMENOrdering Facility: [facility] Address: [address] [place] [address] Performed By: #### 2 532-0, ####[facility] LABCLIA [id number] [place] [address] LDH SerPl-cCncon 06-24-2022 LDH [Catalytic activity/Vol] 198 U/L Normal 135-225 [facility] Comment on above: Order Comment: Speci men Type: BLOOD SPECIMENOrdering Facility: [facility] Address: [address] [place] [address] Performed By: #### 2 532-0, ####[facility] LABIA [id number] [place] [address] CBC W Auto Differential pane l (Bld)on 06-17-2022 Anisocytosis Ql (Bld) Present Normal [facility] Comment on above: Order Comment: Speci men Type: BLOOD SPECIMENOrdering Facility: [facility] Address: [address] Performed By: #### 5 7021-8 ####[facility] LABCLIA [id number] [address] LABCLIA [id number] [place] [address] [place] Basophils (Bld) [#/Vol] 0.05 10*3/uL Normal <0.11 [facility] Comment on above: Order Comment: Speci men Type: BLOOD SPECIMENOrdering Facility: [facility] Address: [address] Performed By: #### 5 7021-8 ####[facility] LABCLIA [id number] [address] LABCLIA [id number] [place] [address] [place] Basophils/100 WBC (Bld) 3.0 % Normal [facility] Comment on above: Order Comment: Speci men Type: BLOOD SPECIMENOrdering Facility: [facility] Address: [address] Performed By: #### 5 7021-8 ####[facility] LABCLIA [id number] [address] LABCLIA [id number] [place] [address] [place] Differential cell count method Nom (Bld) Manual Normal [facility] Comment on above: Order Comment: Speci men Type: BLOOD SPECIMENOrdering Facility: [facility] Address: [address] Performed By: #### 5 7021-8 ####[facility] LABCLIA [id number] [address] LABCLIA [id number] [place] [address] [place] Eosinophils (Bld) [#/Vol] 0.03 10*3/uL Normal <0.46 [facility] Comment on above: Order Comment: Speci men Type: BLOOD SPECIMENOrdering Facility: [facility] Address: [address] [place] [address] Performed By: #### 5 7021-8 ####[facility] LABCLIA [id number] [address] LABCLIA [id number] [place] [address] [place] Eosinophils/100 WBC (Bld) 2.0 % Normal [facility] Comment on above: Order Comment: Speci men Type: BLOOD SPECIMENOrdering Facility: [facility] Address: [address] [place] [address] Performed By: #### 5 7021-8 ####[facility] LABCLIA [id number] [address] LABCLIA [id number] [place] [address] [place] Erythrocyte distribution width (RBC) [Ratio] 19.8 % High 11.5-15.0 [facility] Comment on above: Order Comment: Speci men Type: BLOOD SPECIMENOrdering Facility: [facility] Address: [address] [place], [place] [address] Performed By: #### 5 7021-8 ####[facility] LABCLIA [id number] [address] LABCLIA [id number] [place] [address] [place] Hematocrit (Bld) [Volume fraction] 26.1 % Low 39.0-51.0 [facility] Comment on above: Order Comment: Speci men Type: BLOOD SPECIMENOrdering Facility: [facility] Address: [address] [place], [place] [address] Performed By: #### 5 7021-8 ####[facility] LABCLIA [id number] [address] LABCLIA [id number] [place] [address] [place] Hemoglobin (Bld) [Mass/Vol] 8.4 g/dL Low 13.0-17.0 [facility] Comment on above: Order Comment: Speci men Type: BLOOD SPECIMENOrdering Facility: [facility] Address: [address] [place] [address] Performed By: #### 5 7021-8 ####[facility] LABCLIA [id number] [address] LABCLIA [id number] [place] [address] [place] Lymphocytes (Bld) [#/Vol] 0.66 10*3/uL Low 1.00-4.00 [facility] Comment on above: Order Comment: Speci men Type: BLOOD SPECIMENOrdering Facility: [facility] Address: [address] [place] [address] Performed By: #### 5 7021-8 ####[facility] LABCLIA [id number] [address] LABCLIA [id number] [place] [address] [place] Lymphocytes/100 WBC (Bld) 40.0 % Normal [facility] Comment on above: Order Comment: Speci men Type: BLOOD SPECIMENOrdering Facility: [facility] Address: [address] [place] [address] Performed By: #### 5 7021-8 ####[facility] LABCLIA [id number] [address] LABCLIA [id number] [id number] [address] [place] MCH (RBC) [Entitic mass] 32.1 pg Normal 26.0-34.0 [facility] Comment on above: Order Comment: Speci men Type: BLOOD SPECIMENOrdering Facility: [facility] Address: [address] [place] [address] Performed By: #### 5 7021-8 ####[facility] LABCLIA [id number] [address] LABCLIA [id number] [place] [address] [place] MCHC (RBC) [Mass/Vol] 32.2 g/dL Normal 30.5-36.0 [facility] Comment on above: Order Comment: Speci men Type: BLOOD SPECIMENOrdering Facility: [facility] Address: [address] [place] [address] Performed By: #### 5 7021-8 ####[facility] LABCLIA [id number] [address] LABCLIA [id number] [place] [address] [place] MCV (RBC) [Entitic vol] 99.6 fL Normal 80.0-100.0 [facility] Comment on above: Order Comment: Speci men Type: BLOOD SPECIMENOrdering Facility: [facility] Address: [address] [place], [place] [address] Performed By: #### 5 7021-8 ####[facility] LABCLIA [id number] [address] LABCLIA [id number] [place] [address] [place] Monocytes (Bld) [#/Vol] 0.20 10*3/uL Normal <0.87 [facility] Comment on above: Order Comment: Speci men Type: BLOOD SPECIMENOrdering Facility: [facility] Address: [address] [place], [place] [address] Performed By: #### 5 7021-8 ####[facility] LABCLIA [id number] [address] LABCLIA [id number] [place] [address] [place] Monocytes/100 WBC (Bld) 12.0 % Normal [facility] Comment on above: Order Comment: Speci men Type: BLOOD SPECIMENOrdering Facility: [facility] Address: [address] [place] [address] Performed By: #### 5 7021-8 ####[facility] LABCLIA [id number] [address] LABCLIA [id number] [place] [address] [place] Neutrophils (Bld) [#/Vol] 0.71 10*3/uL Low 1.45-7.50 [facility] Comment on above: Order Comment: Speci men Type: BLOOD SPECIMENOrdering Facility: [facility] Address: [address] [place] [address] Performed By: #### 5 7021-8 ####[facility] LABCLIA [id number] [address] LABCLIA [id number] [place] [address] [place] Neutrophils/100 WBC (Bld) 43.0 % Normal [facility] Comment on above: Order Comment: Speci men Type: BLOOD SPECIMENOrdering Facility: [facility] Address: [address] Performed By: #### 5 7021-8 ####[facility] LABCLIA [id number] [address] LABCLIA [id number] [place] [address] [place] Nucleated RBC (Bld) [#/Vol] 10*3/uL Normal <0.01 [facility] Comment on above: Order Comment: Speci men Type: BLOOD SPECIMENOrdering Facility: [facility] Address: [address] [place] [address] Performed By: #### 5 7021-8 ####[facility] LABCLIA [id number] [address] LABCLIA [id number] [place] [address] [place] Nucleated RBC/100 WBC (Bld) [Ratio] 0.0 /100 WBC Normal [facility] Comment on above: Order Comment: Speci men Type: BLOOD SPECIMENOrdering Facility: [facility] Address: [address] [place] [address] Performed By: #### 5 7021-8 ####[facility] LABCLIA [id number] [address] LABCLIA [id number] [place] [address] [place] Ovalocytes LM Ql (Bld) Few Normal [facility] Comment on above: Order Comment: Speci men Type: BLOOD SPECIMENOrdering Facility: [facility] Address: [address] [place] [address] Performed By: #### 5 7021-8 ####[facility] LABCLIA [id number] [address] LABCLIA [id number] [place] [address] [place] Platelet mean volume (Bld) [Entitic vol] 14.0 fL High 9.0-12.7 [facility] Comment on above: Order Comment: Speci men Type: BLOOD SPECIMENOrdering Facility: [facility] Address: [address] [place] [address] Performed By: #### 5 7021-8 ####[facility] LABCLIA [id number] [place] [address] LABCLIA [id number] [place] [address] [place] Platelets (Bld) [#/Vol] 56 10*3/uL Low 150-400 [facility] Comment on above: Order Comment: Speci men Type: BLOOD SPECIMENOrdering Facility: [facility] Address: [address] [place] [address] Result Comment: [facility] Performed By: #### 5 7021-8 ####[facility] LABCLIA [id number] [address] LABCLIA [id number] [place] [address] [place] Platelets Estimate (Bld) [#/Vol] Decreased Normal [facility] Comment on above: Order Comment: Speci men Type: BLOOD SPECIMENOrdering Facility: [facility] Address: [address] [place] [address] Performed By: #### 5 7021-8 ####[facility] LABCLIA [id number] [address] LABCLIA [id number] [place] [address] [place] RBC (Bld) [#/Vol] 2.62 10*6/uL Low 4.20-6.00 [facility] Comment on above: Order Comment: Speci men Type: BLOOD SPECIMENOrdering Facility: [facility] Address: [address] [place] [address] Performed By: #### 5 7021-8 ####[facility] LABCLIA [id number] [address] LABCLIA [id number] [place] [address] [place] RBC FRAGMENTS Few Abnormal None Seen [facility] Comment on above: Order Comment: Speci men Type: BLOOD SPECIMENOrdering Facility: [facility] Address: [address] [place] [address] Performed By: #### 5 7021-8 ####[facility] LABCLIA [id number] [address] LABCLIA [id number] [place] [address] [place] RED CELL MORPH Reviewed: see result s of individual morphologies Normal [facility] Comment on above: Order Comment: Speci men Type: BLOOD SPECIMENOrdering Facility: [facility] Address: [address] [place] [address] Performed By: #### 5 7021-8 ####[facility] LABCLIA [id number] [address] LABCLIA [id number] [place] [address] [place] WBC (Bld) [#/Vol] 1.64 10*3/uL Low 3.70-11.00 [facility] Comment on above: Order Comment: Speci men Type: BLOOD SPECIMENOrdering Facility: [facility] Address: [address] [place] [address] Result Comment: Samp le checked for clot Performed By: #### 5 7021-8 ####[facility] LABCLIA [id number] [address] LABCLIA [id number] [place] [address] [place] CNOVSPon 06-17-2022 CNOVSP Normal [facility] CNPNon 06-17-2022 CNPN Normal [facility] Comprehensive metabolic 2000 panelon 06-17-2022 Albumin [Mass/Vol] 4.0 g/dL Normal 3.9-4.9 [facility] Comment on above: Order Comment: Speci men Type: BLOOD SPECIMENOrdering Facility: [facility] Address: [address] [address] Performed By: #### 2 4323-8 ####[facility] LABCLIA [id number] [place] [address] ALP [Catalytic activity/Vol] 108 U/L Normal 38-113 [facility] Comment on above: Order Comment: Speci men Type: BLOOD SPECIMENOrdering Facility: [facility] Address: [address] [address] Performed By: #### 2 4323-8 ####[facility] LABCLIA [id number] [place] [address] ALT [Catalytic activity/Vol] 42 U/L Normal 10-54 [facility] Comment on above: Order Comment: Speci men Type: BLOOD SPECIMENOrdering Facility: [facility] Address: [address] [address] Performed By: #### 2 4323-8 ####[facility] LABCLIA [id number] [place] [address] Anion gap [Moles/Vol] 8 mmol/L Low 9-18 [facility] Comment on above: Order Comment: Speci men Type: BLOOD SPECIMENOrdering Facility: [facility] Address: [address] [address] Performed By: #### 2 4323-8 ####[facility] LABCLIA [id number] [place] [address] AST [Catalytic activity/Vol] 22 U/L Normal 14-40 [facility] Comment on above: Order Comment: Speci men Type: BLOOD SPECIMENOrdering Facility: [facility] Address: [address] [place] [address] Performed By: #### 2 4323-8 ####[facility] LABCLIA [id number] [place] [address] Bilirubin [Mass/Vol] 0.9 mg/dL Normal 0.2-1.3 [facility] Comment on above: Order Comment: Speci men Type: BLOOD SPECIMENOrdering Facility: [facility] Address: [address] [address] Performed By: #### 2 4323-8 ####[facility] LABCLIA [id number] [place] [address] Calcium [Mass/Vol] 8.9 mg/dL Normal 8.5-10.2 [facility] Comment on above: Order Comment: Speci men Type: BLOOD SPECIMENOrdering Facility: [facility] Address: [address] [place] [address] Performed By: #### 2 4323-8 ####[facility] LABCLIA [id number] [place] [address] Chloride [Moles/Vol] 103 mmol/L Normal 97-105 [facility] Comment on above: Order Comment: Speci men Type: BLOOD SPECIMENOrdering Facility: [facility] Address: [address] [address] Performed By: #### 2 4323-8 ####[facility] LABCLIA [id number] [place] [address] CO2 [Moles/Vol] 31 mmol/L High 22-30 [facility] Comment on above: Order Comment: Speci men Type: BLOOD SPECIMENOrdering Facility: [facility] Address: [address] [address] Performed By: #### 2 4323-8 ####[facility] LABCLIA [id number] [place] [address] Creatinine [Mass/Vol] 1.52 mg/dL High 0.73-1.22 [facility] Comment on above: Order Comment: Speci men Type: BLOOD SPECIMENOrdering Facility: [facility] Address: [address] [place] [address] Performed By: #### 2 4323-8 ####[facility] LABCLIA [id number] [place] [address] ESTIMATED GLOMERULAR FILTRATION RATE 45 mL/min/1.73m??? Low >=60 [facility] Comment on above: Order Comment: Davi avenadño Type: BLOOD SPECIMENOrdering Facility: [facility] Address: [address] [place] [address] Result Comment: Faye mated Glomerular Filtration Rate [...] actual GFR. Performed By: #### 2 4323-8 ####[facility] LABCLIA [id number] [place] [address] Glucose [Mass/Vol] 141 mg/dL High 74-99 [facility] Comment on above: Order Comment: Davi avendaño Type: BLOOD SPECIMENOrdering Facility: [facility] Address: [address] [place] [address] Result Comment: The [place] [employer] (ADA) provides guidance for cutoff [...] Standards of Medical Care in Diabetes 2016, [place] [employer]. Diabetes Care. 2016.39(Suppl 1). Performed By: #### 2 4323-8 ####[facility] LABCLIA [id number] [place] [address] Potassium [Moles/Vol] 3.9 mmol/L Normal 3.7-5.1 [facility] Comment on above: Order Comment: Speci men Type: BLOOD SPECIMENOrdering Facility: [facility] Address: [address] [address] Performed By: #### 2 4323-8 ####[facility] LABCLIA [id number] [place] [address] Protein [Mass/Vol] 6.3 g/dL Normal 6.3-8.0 [facility] Comment on above: Order Comment: Speci men Type: BLOOD SPECIMENOrdering Facility: [facility] Address: [address] [address] Performed By: #### 2 4323-8 ####[facility] LABCLIA [id number] [place] [address] Sodium [Moles/Vol] 142 mmol/L Normal 136-144 [facility] Comment on above: Order Comment: Speci men Type: BLOOD SPECIMENOrdering Facility: [facility] Address: [address] [place] [address] Performed By: #### 2 4323-8 ####[facility] LABCLIA [id number] [place] [address] Urea nitrogen [Mass/Vol] 24 mg/dL Normal 9-24 [facility] Comment on above: Order Comment: Speci men Type: BLOOD SPECIMENOrdering Facility: [facility] Address: [address] [place] [address] Performed By: #### 2 4323-8 ####[facility] LABCLIA [id number] [place] [address] HEMOGLOBIN AND HEMATOCRITon 06-17-2022 Hematocrit (Bld) [Volume fraction] 25.0 % Critically low 42.0-54.0 [facility] Comment on above: Performed By: #### T NS, PRBC #### [facility] [address] [place], [place] [address] Dr. Benito To Hemoglobin (Bld) [Mass/Vol] 8.0 g/dL Critically low 14.0-18.0 [facility] Comment on above: Performed By: #### T NS, PRBC #### [facility] [address] [place] [address] [address] Benito oT LDH SerPl-cCncon 06-17-2022 LDH [Catalytic activity/Vol] 199 U/L Normal 135-225 [facility] Comment on above: Order Comment: Speci men Type: BLOOD SPECIMENOrdering Facility: [facility] Address: [address] [place] [address] Performed By: #### 2 532-0 ####[facility] LABCLIA [id number] [place] [address] TYPE AND SCREENon 06-17-2022 TYPE AND SCREEN Negative Normal [facility] Comment on above: Performed By: #### T NS, PRBC #### [facility] [address] [place] [address] Dr. Benito To HEMOGLOBIN AND HEMATOCRITon 06-11-2022 Hematocrit (Bld) [Volume fraction] 21.3 % Critically low 42.0-54.0 [facility] Comment on above: Performed By: #### T NS, PRBC #### [facility] [address] [place] [address] [address] Benito To Hemoglobin (Bld) [Mass/Vol] 7.1 g/dL Critically low 14.0-18.0 [facility] Comment on above: Performed By: #### T NS, PRBC #### [facility] [address] [place] [address] Dr. Benito To TYPE AND SCREENon 06-11-2022 TYPE AND SCREEN Negative Normal [facility] Comment on above: Performed By: #### P RBC, TNS #### [facility] [address] [place] [address] Dr. Benito To CBC W Auto Differential pane l (Bld)on 06-10-2022 Anisocytosis Ql (Bld) Present Normal [facility] Comment on above: Order Comment: Speci men Type: BLOOD SPECIMENOrdering Facility: [facility] Address: [address] [place] [address] Performed By: #### 5 7021-8 ####[facility] LABCLIA [id number] [address] LABCLIA [id number] [place] [address] [place] Basophils (Bld) [#/Vol] 0.02 10*3/uL Normal <0.11 [facility] Comment on above: Order Comment: Speci men Type: BLOOD SPECIMENOrdering Facility: [facility] Address: [address] Performed By: #### 5 7021-8 ####[facility] LABCLIA [id number] [address] LABCLIA [id number] [place] [address] [place] Basophils/100 WBC (Bld) 2.0 % Normal [facility] Comment on above: Order Comment: Speci men Type: BLOOD SPECIMENOrdering Facility: [facility] Address: [address] Performed By: #### 5 7021-8 ####[facility] LABCLIA [id number] [address] LABCLIA [id number] [place] [address] [place] Differential cell count method Nom (Bld) Manual Normal [facility] Comment on above: Order Comment: Speci men Type: BLOOD SPECIMENOrdering Facility: [facility] Address: [address] Performed By: #### 5 7021-8 ####[facility] LABCLIA [id number] [address] LABCLIA [id number] [place] [address] [place] Eosinophils (Bld) [#/Vol] 0.03 10*3/uL Normal <0.46 [facility] Comment on above: Order Comment: Speci men Type: BLOOD SPECIMENOrdering Facility: [facility] Address: [address] [place] [address] Performed By: #### 5 7021-8 ####[facility] LABCLIA [id number] [address] LABCLIA [id number] [place] [address] [place] Eosinophils/100 WBC (Bld) 3.0 % Normal [facility] Comment on above: Order Comment: Speci men Type: BLOOD SPECIMENOrdering Facility: [facility] Address: [address] [place] [address] Performed By: #### 5 7021-8 ####[facility] LABCLIA [id number] [address] LABCLIA [id number] [place] [address] [place] Erythrocyte distribution width (RBC) [Ratio] 21.2 % High 11.5-15.0 [facility] Comment on above: Order Comment: Speci men Type: BLOOD SPECIMENOrdering Facility: [facility] Address: [address] [place] [address] Performed By: #### 5 7021-8 ####[facility] LABCLIA [id number] [address] LABCLIA [id number] [place] [address] [place] Hematocrit (Bld) [Volume fraction] 22.8 % Low 39.0-51.0 [facility] Comment on above: Order Comment: Speci men Type: BLOOD SPECIMENOrdering Facility: [facility] Address: [address] [place] [address] Performed By: #### 5 7021-8 ####[facility] LABCLIA [id number] [place] [address] LABCLIA [id number] [place] [address] [place] Hemoglobin (Bld) [Mass/Vol] 7.3 g/dL Low 13.0-17.0 [facility] Comment on above: Order Comment: Speci men Type: BLOOD SPECIMENOrdering Facility: [facility] Address: [address] [place] [address] Performed By: #### 5 7021-8 ####[facility] LABCLIA [id number] [address] LABCLIA [id number] [place] [address] [place] Lymphocytes (Bld) [#/Vol] 0.64 10*3/uL Low 1.00-4.00 [facility] Comment on above: Order Comment: Speci men Type: BLOOD SPECIMENOrdering Facility: [facility] Address: [address] [place] [address] Performed By: #### 5 7021-8 ####[facility] LABCLIA [id number] [address] LABCLIA [id number] [place] [address] [place] Lymphocytes/100 WBC (Bld) 55.0 % Normal [facility] Comment on above: Order Comment: Speci men Type: BLOOD SPECIMENOrdering Facility: [facility] Address: [address] [place] [address] Performed By: #### 5 7021-8 ####[facility] LABCLIA [id number] [address] LABCLIA [id number] [place] [address] [place] MCH (RBC) [Entitic mass] 32.4 pg Normal 26.0-34.0 [facility] Comment on above: Order Comment: Speci men Type: BLOOD SPECIMENOrdering Facility: [facility] Address: [address] [place] [address] Performed By: #### 5 7021-8 ####[facility] LABCLIA [id number] [address] LABCLIA [id number] [place] [address] [place] MCHC (RBC) [Mass/Vol] 32.0 g/dL Normal 30.5-36.0 [facility] Comment on above: Order Comment: Speci men Type: BLOOD SPECIMENOrdering Facility: [facility] Address: [address] [place] [address] Performed By: #### 5 7021-8 ####[facility] LABCLIA [id number] [address] LABCLIA [id number] [place] [address] [place] MCV (RBC) [Entitic vol] 101.3 fL High 80.0-100.0 [facility] Comment on above: Order Comment: Speci men Type: BLOOD SPECIMENOrdering Facility: [facility] Address: [address] [place], [place] [address] Performed By: #### 5 7021-8 ####[facility] LABCLIA [id number] [address] LABCLIA [id number] [place] [address] [place] Monocytes (Bld) [#/Vol] 0.14 10*3/uL Normal <0.87 [facility] Comment on above: Order Comment: Speci men Type: BLOOD SPECIMENOrdering Facility: [facility] Address: [address] [place], [place] [address] Performed By: #### 5 7021-8 ####[facility] LABCLIA [id number] [address] LABCLIA [id number] [place] [address] [place] Monocytes/100 WBC (Bld) 12.0 % Normal [facility] Comment on above: Order Comment: Speci men Type: BLOOD SPECIMENOrdering Facility: [facility] Address: [address] [address] Performed By: #### 5 7021-8 ####[facility] LABCLIA [id number] [address] LABCLIA [id number] [place] [address] [place] Neutrophils (Bld) [#/Vol] 0.32 10*3/uL Low 1.45-7.50 [facility] Comment on above: Order Comment: Speci men Type: BLOOD SPECIMENOrdering Facility: [facility] Address: [address] [address] Performed By: #### 5 7021-8 ####[facility] LABCLIA [id number] [address] LABCLIA [id number] [place] [address] [place] Neutrophils/100 WBC (Bld) 28.0 % Normal [facility] Comment on above: Order Comment: Speci men Type: BLOOD SPECIMENOrdering Facility: [facility] Address: [address] Performed By: #### 5 7021-8 ####[facility] LABCLIA [id number] [address] LABCLIA [id number] [place] [address] [place] Nucleated RBC (Bld) [#/Vol] 10*3/uL Normal <0.01 [facility] Comment on above: Order Comment: Speci men Type: BLOOD SPECIMENOrdering Facility: [facility] Address: [address] [place] [address] Performed By: #### 5 7021-8 ####[facility] LABCLIA [id number] [address] LABCLIA [id number] [place] [address] [place] Nucleated RBC/100 WBC (Bld) [Ratio] 0.0 /100 WBC Normal [facility] Comment on above: Order Comment: Speci men Type: BLOOD SPECIMENOrdering Facility: [facility] Address: [address] [place] [address] Performed By: #### 5 7021-8 ####[facility] LABCLIA [id number] [address] LABCLIA [id number] [place] [address] [place] Ovalocytes LM Ql (Bld) Few Normal [facility] Comment on above: Order Comment: Speci men Type: BLOOD SPECIMENOrdering Facility: [facility] Address: [address] [place] [address] Performed By: #### 5 7021-8 ####[facility] LABCLIA [id number] [address] LABCLIA [id number] [place] [address] [place] Platelet mean volume (Bld) [Entitic vol] Normal [facility] Comment on above: Order Comment: Speci men Type: BLOOD SPECIMENOrdering Facility: [facility] Address: [address] [place] [address] Result Comment: Unab le to Report. Performed By: #### 5 7021-8 ####[facility] LABCLIA [id number] [address] LABCLIA [id number] [place] [address] [place] Platelets (Bld) [#/Vol] 40 10*3/uL Low 150-400 [facility] Comment on above: Order Comment: Speci men Type: BLOOD SPECIMENOrdering Facility: [facility] Address: [address] [place] [address] Result Comment: Samp le checked for clot Performed By: #### 5 7021-8 ####[facility] LABCLIA [id number] [address] LABCLIA [id number] [place] [address] [place] Platelets Estimate (Bld) [#/Vol] Decreased Normal [facility] Comment on above: Order Comment: Speci men Type: BLOOD SPECIMENOrdering Facility: [facility] Address: [address] [place] [address] Performed By: #### 5 7021-8 ####[facility] LABCLIA [id number] [address] LABCLIA [id number] [place] [address] [place] Polychromasia LM Ql (Bld) Slight Normal [facility] Comment on above: Order Comment: Speci men Type: BLOOD SPECIMENOrdering Facility: [facility] Address: [address] [place] [address] Performed By: #### 5 7021-8 ####[facility] LABCLIA [id number] [address] LABCLIA [id number] [place] [address] [place] RBC (Bld) [#/Vol] 2.25 10*6/uL Low 4.20-6.00 [facility] Comment on above: Order Comment: Speci men Type: BLOOD SPECIMENOrdering Facility: [facility] Address: [address] [place] [address] Performed By: #### 5 7021-8 ####[facility] LABCLIA [id number] [address] LABCLIA [id number] [place] [address] [place] RBC FRAGMENTS Few Abnormal None Seen [facility] Comment on above: Order Comment: Speci men Type: BLOOD SPECIMENOrdering Facility: [facility] Address: [address] [place] [address] Performed By: #### 5 7021-8 ####[facility] LABCLIA [id number] [address] LABCLIA [id number] [place] [address] [place] RED CELL MORPH Reviewed: see result s of individual morphologies Normal [facility] Comment on above: Order Comment: Speci men Type: BLOOD SPECIMENOrdering Facility: [facility] Address: [address] [place] [address] Performed By: #### 5 7021-8 ####[facility] LABCLIA [id number] [address] LABCLIA [id number] [place] [address] [place] WBC (Bld) [#/Vol] 1.16 10*3/uL Low 3.70-11.00 [facility] Comment on above: Order Comment: Speci men Type: BLOOD SPECIMENOrdering Facility: [facility] Address: [address] [place] [address] Result Comment: Samp le checked for clot Performed By: #### 5 7021-8 ####[facility] LABCLIA [id number] [address] [facility] LABCLIA [id number] [facility] [id number] [id number] [place] CNOVSPon 06-10-2022 CNOVSP Normal [facility] Comprehensive metabolic 2000 panelon 06-10-2022 Albumin [Mass/Vol] 4.0 g/dL Normal 3.9-4.9 [facility] Comment on above: Order Comment: Speci men Type: BLOOD SPECIMENOrdering Facility: [facility] Address: [address] [address] Performed By: #### 2 4323-8, 2532-0 ####[facility] LABIA [id number] [place] [address] ALP [Catalytic activity/Vol] 108 U/L Normal 38-113 [facility] Comment on above: Order Comment: Speci men Type: BLOOD SPECIMENOrdering Facility: [facility] Address: [address] [address] Performed By: #### 2 4323-8, 253-0 ####[facility] LABIA [id number] [place] [address] ALT [Catalytic activity/Vol] 40 U/L Normal 10-54 [facility] Comment on above: Order Comment: Speci men Type: BLOOD SPECIMENOrdering Facility: [facility] Address: [address] [place] [address] Performed By: #### 2 4323-8, 253-0 ####[facility] LABIA [id number] [place] [address] Anion gap [Moles/Vol] 8 mmol/L Low 9-18 [facility] Comment on above: Order Comment: Speci men Type: BLOOD SPECIMENOrdering Facility: [facility] Address: [address] [place] [address] Performed By: #### 2 4323-8, 2532-0 ####[facility] LABCLIA [id number] [place] [address] AST [Catalytic activity/Vol] 18 U/L Normal 14-40 [facility] Comment on above: Order Comment: Speci men Type: BLOOD SPECIMENOrdering Facility: [facility] Address: [address] [place] [address] Performed By: #### 2 4323-8, 2531-0 ####[facility] LABCLIA [id number] [place] [address] Bilirubin [Mass/Vol] 1.1 mg/dL Normal 0.2-1.3 [facility] Comment on above: Order Comment: Speci men Type: BLOOD SPECIMENOrdering Facility: [facility] Address: [address] [place] [address] Performed By: #### 2 4323-8, 2531-0 ####[facility] LABCLIA [id number] [place] [address] Calcium [Mass/Vol] 9.0 mg/dL Normal 8.5-10.2 [facility] Comment on above: Order Comment: Speci men Type: BLOOD SPECIMENOrdering Facility: [facility] Address: [address] [place] [address] Performed By: #### 2 4323-8, 2531-0 ####[facility] LABIA [id number] [place] [address] Chloride [Moles/Vol] 104 mmol/L Normal 97-105 [facility] Comment on above: Order Comment: Speci men Type: BLOOD SPECIMENOrdering Facility: [facility] Address: [address] [place], [place] [address] Performed By: #### 2 4323-8, 2531-0 ####[facility] LABCLIA [id number] [place] [address] CO2 [Moles/Vol] 30 mmol/L Normal 22-30 [facility] Comment on above: Order Comment: Speci men Type: BLOOD SPECIMENOrdering Facility: [facility] Address: [address] [place] [address] Performed By: #### 2 4323-8, 2532-0 ####[facility] LABCLIA [id number] [place] [address] Creatinine [Mass/Vol] 1.60 mg/dL High 0.73-1.22 [facility] Comment on above: Order Comment: Speci men Type: BLOOD SPECIMENOrdering Facility: [facility] Address: [place] [address] Performed By: #### 2 4323-8, 253-0 ####[facility] LABCLIA [id number] [place] [address] ESTIMATED GLOMERULAR FILTRATION RATE 42 mL/min/1.73m??? Low >=60 [facility] Comment on above: Order Comment: Speci men Type: BLOOD SPECIMENOrdering Facility: [facility] Address: [place] [address] Result Comment: Faye mated Glomerular Filtration Rate [...] GFR. Performed By: #### 2 4323-8, 2531-0 ####[facility] LABIA [id number] [place] [address] Glucose [Mass/Vol] 139 mg/dL High 74-99 [facility] Comment on above: Order Comment: Speci men Type: BLOOD SPECIMENOrdering Facility: [facility] Address: [place] [address] Result Comment: The [place] [employer] (ADA) provides guidance for cutoff [...] Standards of Medical Care in Diabetes 2016, [place] [employer]. Diabetes Care. 2016.39(Suppl 1). Performed By: #### 2 4328, 0 ####[facility] LABCLIA [id number] [place] [address] Potassium [Moles/Vol] 3.8 mmol/L Normal 3.7-5.1 [facility] Comment on above: Order Comment: Speci men Type: BLOOD SPECIMENOrdering Facility: [facility] Address: [address] [place] [address] Performed By: #### 2 43210-02, ####[facility] LABIA [id number] [place] [address] Protein [Mass/Vol] 6.4 g/dL Normal 6.3-8.0 [facility] Comment on above: Order Comment: Speci men Type: BLOOD SPECIMENOrdering Facility: [facility] Address: [address] [place] [address] Performed By: #### 2 4328, 0 ####[facility] LABIA [id number] [place] [address] Sodium [Moles/Vol] 142 mmol/L Normal 136-144 [facility] Comment on above: Order Comment: Speci men Type: BLOOD SPECIMENOrdering Facility: [facility] Address: [address] [place], [place] [address] Performed By: #### 2 43210-02, 0 ####[facility] LABCLIA [id number] [place] [address] Urea nitrogen [Mass/Vol] 27 mg/dL High 9-24 [facility] Comment on above: Order Comment: Speci men Type: BLOOD SPECIMENOrdering Facility: [facility] Address: [address] [id number] Performed By: #### 2 4323-8, 2531-0 ####[facility] LABCLIA [id number] [place] [address] LDH SerPl-cCncon 06-10-2022 LDH [Catalytic activity/Vol] 200 U/L Normal 135-225 [facility] Comment on above: Order Comment: Speci men Type: BLOOD SPECIMENOrdering Facility: [facility] Address: [address] [address] Performed By: #### 2 4323-8, 0 ####[facility] LABCLIA [id number] [place] [address] CNPNon 06-07-2022 CNPN Normal [facility] HEMOGLOBIN AND HEMATOCRITon 06-07-2022 Hematocrit (Bld) [Volume fraction] 23.0 % Critically low 42.0-54.0 [facility] Comment on above: Performed By: #### H H #### [facility] [address] [place] [address] Dr. Benito To Hemoglobin (Bld) [Mass/Vol] 7.7 g/dL Critically low 14.0-18.0 [facility] Comment on above: Performed By: #### H H #### [facility] [address] [place] [address] Dr. Benito To PRBC LEUKOREDUCEDon 06-06-20 ABO and Rh group Nom (Bld) Cross Match Result Compatible Unit Blood Type A Pos Unit Number [id number] Status Information Transfused Product ID Red Blood Cells Product Code [id number] Cross Match Result Compatible Unit Blood Type O Neg Unit Number [id number] Status Information Transfused Product ID Red Blood Cells Product Code [id number] Normal [facility] Comment on above: Performed By: #### H H #### [facility] [address] [place] [address] Dr. Benito To HEMOGLOBIN AND HEMATOCRITon 06-04-2022 Hematocrit (Bld) [Volume fraction] 20.4 % Critically low 42.0-54.0 [facility] Comment on above: Performed By: #### H GBHCT #### [facility] [address] [address] [address] Benito To Hemoglobin (Bld) [Mass/Vol] 6.5 g/dL Critically low 14.0-18.0 [facility] Comment on above: Performed By: #### H GBHCT #### [facility] [address] [address] [address] Benito To TYPE AND SCREENon 06-04-2022 TYPE AND SCREEN Negative Normal [facility] Comment on above: Performed By: #### H H #### [facility] [address] [place] [address] Dr. Benito To CBC W Auto Differential pane l (Bld)on 06-03-2022 Anisocytosis Ql (Bld) Present Normal [facility] Comment on above: Order Comment: Speci men Type: BLOOD SPECIMENOrdering Facility: [facility] Address: [address] [place] [address] Performed By: #### 5 7021-8 ####[facility] LABCLIA [id number] [address] LABCLIA [id number] [place] [address] [place] Basophils (Bld) [#/Vol] 0.02 10*3/uL Normal <0.11 [facility] Comment on above: Order Comment: Speci men Type: BLOOD SPECIMENOrdering Facility: [facility] Address: [address] [place] [address] Performed By: #### 5 7021-8 ####[facility] LABCLIA [id number] [address] LABCLIA [id number] [place] [address] [place] Basophils/100 WBC (Bld) 1.3 % Normal [facility] Comment on above: Order Comment: Speci men Type: BLOOD SPECIMENOrdering Facility: [facility] Address: [address] [place] [address] Performed By: #### 5 7021-8 ####[facility] LABCLIA [id number] [address] LABCLIA [id number] [place] [address] [place] Differential cell count method Nom (Bld) Manual Normal [facility] Comment on above: Order Comment: Speci men Type: BLOOD SPECIMENOrdering Facility: [facility] Address: [address] [place] [address] Performed By: #### 5 7021-8 ####[facility] LABCLIA [id number] [address] LABCLIA [id number] [place] [address] [place] Eosinophils (Bld) [#/Vol] 0.00 10*3/uL Normal <0.46 [facility] Comment on above: Order Comment: Speci men Type: BLOOD SPECIMENOrdering Facility: [facility] Address: [address] [place] [address] Performed By: #### 5 7021-8 ####[facility] LABCLIA [id number] [address] LABCLIA [id number] [place] [address] [place] Eosinophils/100 WBC (Bld) 0.0 % Normal [facility] Comment on above: Order Comment: Speci men Type: BLOOD SPECIMENOrdering Facility: [facility] Address: [address] [place] [address] Performed By: #### 5 7021-8 ####[facility] LABCLIA [id number] [address] [place] [address] LABCLIA [id number] [place] [address] [place] Erythrocyte distribution width (RBC) [Ratio] 23.2 % High 11.5-15.0 [facility] Comment on above: Order Comment: Speci men Type: BLOOD SPECIMENOrdering Facility: [facility] Address: [address] [place] [address] Performed By: #### 5 7021-8 ####[facility] LABCLIA [id number] [address] LABCLIA [id number] [place] [address] [place] Hematocrit (Bld) [Volume fraction] 20.7 % Low 39.0-51.0 [facility] Comment on above: Order Comment: Speci men Type: BLOOD SPECIMENOrdering Facility: [facility] Address: [address] [place] [address] Performed By: #### 5 7021-8 ####[facility] LABCLIA [id number] [address] LABCLIA [id number] [place] [address] [place] Hemoglobin (Bld) [Mass/Vol] 6.5 g/dL Low 13.0-17.0 [facility] Comment on above: Order Comment: Speci men Type: BLOOD SPECIMENOrdering Facility: [facility] Address: [address] [place], [place] [address] Performed By: #### 5 7021-8 ####[facility] LABCLIA [id number] [address] LABCLIA [id number] [place] [address] [place] Lymphocytes (Bld) [#/Vol] 0.82 10*3/uL Low 1.00-4.00 [facility] Comment on above: Order Comment: Speci men Type: BLOOD SPECIMENOrdering Facility: [facility] Address: [address] [place] [address] Performed By: #### 5 7021-8 ####[facility] LABCLIA [id number] [address] LABCLIA [id number] [place] [address] [place] Lymphocytes/100 WBC (Bld) 59.2 % Normal [facility] Comment on above: Order Comment: Speci men Type: BLOOD SPECIMENOrdering Facility: [facility] Address: [address] [place] [address] Performed By: #### 5 7021-8 ####[facility] LABCLIA [id number] [address] LABCLIA [id number] [place] [address] [place] MCH (RBC) [Entitic mass] 32.3 pg Normal 26.0-34.0 [facility] Comment on above: Order Comment: Speci men Type: BLOOD SPECIMENOrdering Facility: [facility] Address: [address] [place] [address] Performed By: #### 5 7021-8 ####[facility] LABCLIA [id number] [address] LABCLIA [id number] [place] [address] [place] MCHC (RBC) [Mass/Vol] 31.4 g/dL Normal 30.5-36.0 [facility] Comment on above: Order Comment: Speci men Type: BLOOD SPECIMENOrdering Facility: [facility] Address: [address] [place] [address] Performed By: #### 5 7021-8 ####[facility] LABCLIA [id number] [address] LABCLIA [id number] [place] [address] [place] MCV (RBC) [Entitic vol] 103.0 fL High 80.0-100.0 [facility] Comment on above: Order Comment: Speci men Type: BLOOD SPECIMENOrdering Facility: [facility] Address: [address] [place] [address] Performed By: #### 5 7021-8 ####[facility] LABCLIA [id number] [address] LABCLIA [id number] [place] [address] [place] Monocytes (Bld) [#/Vol] 0.09 10*3/uL Normal <0.87 [facility] Comment on above: Order Comment: Speci men Type: BLOOD SPECIMENOrdering Facility: [facility] Address: [address] [place], [place] [address] Performed By: #### 5 7021-8 ####[facility] LABCLIA [id number] [address] LABCLIA [id number] [place] [address] [place] Monocytes/100 WBC (Bld) 6.6 % Normal [facility] Comment on above: Order Comment: Speci men Type: BLOOD SPECIMENOrdering Facility: [facility] Address: [address] [place], [place] [address] Performed By: #### 5 7021-8 ####[facility] LABCLIA [id number] [address] LABCLIA [id number] [place] [address] [place] MYELO% 0.4 % Normal [facility] Comment on above: Order Comment: Speci men Type: BLOOD SPECIMENOrdering Facility: [facility] Address: [address] [place] [address] Performed By: #### 5 7021-8 ####[facility] LABCLIA [id number] [address] LABCLIA [id number] [place] [address] [place] Neutrophils (Bld) [#/Vol] 0.45 10*3/uL Low 1.45-7.50 [facility] Comment on above: Order Comment: Speci men Type: BLOOD SPECIMENOrdering Facility: [facility] Address: [address] [place] [address] Performed By: #### 5 7021-8 ####[facility] LABCLIA [id number] [address] LABCLIA [id number] [place] [address] [place] Neutrophils/100 WBC (Bld) 32.5 % Normal [facility] Comment on above: Order Comment: Speci men Type: BLOOD SPECIMENOrdering Facility: [facility] Address: [address] [place] [address] Performed By: #### 5 7021-8 ####[facility] LABCLIA [id number] [address] LABCLIA [id number] [place] [address] [place] Nucleated RBC (Bld) [#/Vol] 10*3/uL Normal <0.01 [facility] Comment on above: Order Comment: Speci men Type: BLOOD SPECIMENOrdering Facility: [facility] Address: [address] [place] [address] Result Comment: This result was previously suppressed from the chart. Performed By: #### 5 7021-8 ####[facility] LABCLIA [id number] [place] [address] LABCLIA [id number] [place] [address] [place] Nucleated RBC/100 WBC (Bld) [Ratio] 0.0 /100 WBC Normal [facility] Comment on above: Order Comment: Speci men Type: BLOOD SPECIMENOrdering Facility: [facility] Address: [address] [place] [address] Performed By: #### 5 7021-8 ####[facility] LABCLIA [id number] [address] LABCLIA [id number] [place] [address] [place] Ovalocytes LM Ql (Bld) Few Normal [facility] Comment on above: Order Comment: Speci men Type: BLOOD SPECIMENOrdering Facility: [facility] Address: [address] [place] [address] Performed By: #### 5 7021-8 ####[facility] LABCLIA [id number] [address] LABCLIA [id number] [place] [address] [place] Platelet mean volume (Bld) [Entitic vol] Normal [facility] Comment on above: Order Comment: Speci men Type: BLOOD SPECIMENOrdering Facility: [facility] Address: [address] [place] [address] Result Comment: Unab le to Report. Performed By: #### 5 7021-8 ####[facility] LABCLIA [id number] [address] LABCLIA [id number] [place] [address] [place] Platelets (Bld) [#/Vol] 36 10*3/uL Low 150-400 [facility] Comment on above: Order Comment: Speci men Type: BLOOD SPECIMENOrdering Facility: [facility] Address: [address] [address] Result Comment: [facility] Performed By: #### 5 7021-8 ####[facility] LABCLIA [id number] [address] LABCLIA [id number] [place] [address] [place] Platelets Estimate (Bld) [#/Vol] Decreased Normal [facility] Comment on above: Order Comment: Speci men Type: BLOOD SPECIMENOrdering Facility: [facility] Address: [address] [place] [address] Performed By: #### 5 7021-8 ####[facility] LABCLIA [id number] [address] LABCLIA [id number] [place] [address] [place] Polychromasia LM Ql (Bld) Slight Normal [facility] Comment on above: Order Comment: Speci men Type: BLOOD SPECIMENOrdering Facility: [facility] Address: [address] [place] [address] Performed By: #### 5 7021-8 ####[facility] LABCLIA [id number] [address] LABCLIA [id number] [place] [address] [place] RBC (Bld) [#/Vol] 2.01 10*6/uL Low 4.20-6.00 [facility] Comment on above: Order Comment: Speci men Type: BLOOD SPECIMENOrdering Facility: [facility] Address: [address] [place] [address] Performed By: #### 5 7021-8 ####[facility] LABCLIA [id number] [address] LABCLIA [id number] [place] [address] [place] RED CELL MORPH Reviewed: see result s of individual morphologies Normal [facility] Comment on above: Order Comment: Speci men Type: BLOOD SPECIMENOrdering Facility: [facility] Address: [address] [place] [address] Performed By: #### 5 7021-8 ####[facility] LABCLIA [id number] [address] LABCLIA [id number] [place] [address] [place] Variant lymphocytes/100 WBC (Bld) 0.0 % Normal [facility] Comment on above: Order Comment: Speci men Type: BLOOD SPECIMENOrdering Facility: [facility] Address: [address] [place] [address] Performed By: #### 5 7021-8 ####[facility] LABCLIA [id number] [address] LABCLIA [id number] [place] [address] [place] WBC (Bld) [#/Vol] 1.39 10*3/uL Low 3.70-11.00 [facility] Comment on above: Order Comment: Speci men Type: BLOOD SPECIMENOrdering Facility: [facility] Address: [address] [place] [address] Result Comment: Samp le checked for clot Performed By: #### 5 7021-8 ####[facility] LABCLIA [id number] [address] LABCLIA [id number] [place] [address] [place] WBC Left Shift Ql (Bld) Present Normal [facility] Comment on above: Order Comment: Speci men Type: BLOOD SPECIMENOrdering Facility: [facility] Address: [address] [place] [address] Performed By: #### 5 7021-8 ####[facility] LABCLIA [id number] [place], [place] [address]EJSVLBYEKM[facility] LABCLIA [id number] HALEY ZAMBRANO [id number] [address] [place] CNOVSPon 06-03-2022 CNOVSP Normal [facility] CNPNon 06-03-2022 CNPN Normal [facility] Comprehensive metabolic 2000 panelon 06-03-2022 Albumin [Mass/Vol] 3.7 g/dL Low 3.9-4.9 [facility] Comment on above: Order Comment: Speci men Type: BLOOD SPECIMENOrdering Facility: [facility] Address: [address] [place] [address] Performed By: #### 2 4323-8, 2531-0 ####[facility] LABCLIA [id number] [place] [address] ALP [Catalytic activity/Vol] 105 U/L Normal 38-113 [facility] Comment on above: Order Comment: Speci men Type: BLOOD SPECIMENOrdering Facility: [facility] Address: [address] [place] [address] Performed By: #### 2 4323-8, 2531-0 ####[facility] LABCLIA [id number] [place] [address] ALT [Catalytic activity/Vol] 47 U/L Normal 10-54 [facility] Comment on above: Order Comment: Speci men Type: BLOOD SPECIMENOrdering Facility: [facility] Address: [address] [place], [place] [address] Performed By: #### 2 4323-8, 2531-0 ####[facility] LABCLIA [id number] [place] [address] Anion gap [Moles/Vol] 10 mmol/L Normal 9-18 [facility] Comment on above: Order Comment: Speci men Type: BLOOD SPECIMENOrdering Facility: [facility] Address: [address] Performed By: #### 2 4323-8, 2531-0 ####[facility] LABCLIA [id number] [place] [address] AST [Catalytic activity/Vol] 23 U/L Normal 14-40 [facility] Comment on above: Order Comment: Speci men Type: BLOOD SPECIMENOrdering Facility: [facility] Address: [address] [place] [address] Performed By: #### 2 4328, 2531-0 ####[facility] LABCLIA [id number] [place] [address] Bilirubin [Mass/Vol] 0.6 mg/dL Normal 0.2-1.3 [facility] Comment on above: Order Comment: Speci men Type: BLOOD SPECIMENOrdering Facility: [facility] Address: [address] [place] [address] Performed By: #### 2 4328, 2531-0 ####[facility] LABCLIA [id number] [place] [address] Calcium [Mass/Vol] 8.8 mg/dL Normal 8.5-10.2 [facility] Comment on above: Order Comment: Speci men Type: BLOOD SPECIMENOrdering Facility: [facility] Address: [address] [place] [address] Performed By: #### 2 4328, 2531-0 ####[facility] LABCLIA [id number] [place] [address] Chloride [Moles/Vol] 103 mmol/L Normal 97-105 [facility] Comment on above: Order Comment: Speci men Type: BLOOD SPECIMENOrdering Facility: [facility] Address: [address] [place] [address] Performed By: #### 2 4328, 2531-0 ####[facility] LABCLIA [id number] [place] [address] CO2 [Moles/Vol] 27 mmol/L Normal 22-30 [facility] Comment on above: Order Comment: Speci men Type: BLOOD SPECIMENOrdering Facility: [facility] Address: [address] [place] [address] Performed By: #### 2 4323-8, 253-0 ####[facility] LABIA [id number] [place] [address] Creatinine [Mass/Vol] 1.57 mg/dL High 0.73-1.22 [facility] Comment on above: Order Comment: Speci men Type: BLOOD SPECIMENOrdering Facility: [facility] Address: [address] [place] [address] Performed By: #### 2 4323-8, 2531-0 ####[facility] [id number] [place] [address] ESTIMATED GLOMERULAR FILTRATION RATE 43 mL/min/1.73m??? Low >=60 [facility] Comment on above: Order Comment: Speci men Type: BLOOD SPECIMENOrdering Facility: [facility] Address: [address] [place] [address] Result Comment: Faye mated Glomerular Filtration Rate [...] actual GFR. Performed By: #### 2 4323-8, 253-0 ####[facility] LABIA [id number] [place] [address] Glucose [Mass/Vol] 152 mg/dL High 74-99 [facility] Comment on above: Order Comment: Speci men Type: BLOOD SPECIMENOrdering Facility: [facility] Address: [address] [place] [address] Result Comment: The [place] [employer] (ADA) provides guidance for cutoff [...] Standards of Medical Care in Diabetes 2016, [place] [employer]. Diabetes Care. 2016.39(Suppl 1). Performed By: #### 2 4323-8, 0 ####[facility] LABCLIA [id number] [place] [address] Potassium [Moles/Vol] 4.2 mmol/L Normal 3.7-5.1 [facility] Comment on above: Order Comment: Speci men Type: BLOOD SPECIMENOrdering Facility: [facility] Address: [address] [address] Performed By: #### 2 4323-8, 0 ####[facility] LABIA [id number] [place] [address] Protein [Mass/Vol] 6.2 g/dL Low 6.3-8.0 [facility] Comment on above: Order Comment: Speci men Type: BLOOD SPECIMENOrdering Facility: [facility] Address: [address] [id number] Performed By: #### 2 4323-8, 2531-0 ####[facility] LABCLIA [id number] [place] [address] Sodium [Moles/Vol] 140 mmol/L Normal 136-144 [facility] Comment on above: Order Comment: Speci men Type: BLOOD SPECIMENOrdering Facility: [facility] Address: [address] [id number] Performed By: #### 2 4323-8, 2-0 ####[facility] LABCLIA [id number] [place] [address] Urea nitrogen [Mass/Vol] 24 mg/dL Normal 9-24 [facility] Comment on above: Order Comment: Speci men Type: BLOOD SPECIMENOrdering Facility: [facility] Address: [address] [address] Performed By: #### 2 4323-8, 2531-0 ####[facility] LABCLIA [id number] [place] [address] LDH SerPl-cCncon 06-03-2022 LDH [Catalytic activity/Vol] 199 U/L Normal 135-225 [facility] Comment on above: Order Comment: Speci men Type: BLOOD SPECIMENOrdering Facility: [facility] Address: [address] [address] Performed By: #### 2 4323-8, 2531-0 ####[facility] LABCLIA [id number] [place] [address] PRBC LEUKOREDUCEDon 05-28-20 PRBC LEUKOREDUCED Cross Match Result Compatible Unit Blood Type A Pos Unit Number [id number] Status Information Transfused Product ID Red Blood Cells Product Code [id number] Normal [facility] Comment on above: Performed By: #### T NS, PRBC #### [facility] [address] [place] [address] [address] Benito To CBC W Auto Differential pane l (Bld)on 05-27-2022 Anisocytosis Ql (Bld) Present Normal [facility] Comment on above: Order Comment: Speci men Type: BLOOD SPECIMENOrdering Facility: [facility] Address: [address] [address] Performed By: #### 5 7021-8 ####[facility] LABCLIA [id number] [address] LABCLIA [id number] [place] [address] Basophils (Bld) [#/Vol] 0.00 10*3/uL Normal <0.11 [facility] Comment on above: Order Comment: Speci men Type: BLOOD SPECIMENOrdering Facility: [facility] Address: [address] [place] [address] Performed By: #### 5 7021-8 ####[facility] LABCLIA [id number] [address] LABCLIA [id number] [place] [address] Basophils/100 WBC (Bld) 0.0 % Normal [facility] Comment on above: Order Comment: Speci men Type: BLOOD SPECIMENOrdering Facility: [facility] Address: [address] [place] [address] Performed By: #### 5 7021-8 ####[facility] LABCLIA [id number] [address] LABCLIA [id number] [place] [address] Dacrocytes LM Ql (Bld) Few Normal [facility] Comment on above: Order Comment: Speci men Type: BLOOD SPECIMENOrdering Facility: [facility] Address: [address] [place], [place] [address] Performed By: #### 5 7021-8 ####[facility] LABCLIA [id number] [address] LABIA [id number] [place] [address] Differential cell count method Nom (Bld) Manual Normal [facility] Comment on above: Order Comment: Speci men Type: BLOOD SPECIMENOrdering Facility: [facility] Address: [address] [place], [place] [address] Performed By: #### 5 7021-8 ####[facility] LABCLIA [id number] [address] LABCLIA [id number] [place] [address] Eosinophils (Bld) [#/Vol] 0.03 10*3/uL Normal <0.46 [facility] Comment on above: Order Comment: Speci men Type: BLOOD SPECIMENOrdering Facility: [facility] Address: [address] [place] [address] Performed By: #### 5 7021-8 ####[facility] LABCLIA [id number] [address] LABCLIA [id number] [place] [address] Eosinophils/100 WBC (Bld) 3.0 % Normal [facility] Comment on above: Order Comment: Speci men Type: BLOOD SPECIMENOrdering Facility: [facility] Address: [address] [place] [address] Performed By: #### 5 7021-8 ####[facility] LABCLIA [id number] [address] LABCLIA [id number] [place] [address] Erythrocyte distribution width (RBC) [Ratio] 23.3 % High 11.5-15.0 [facility] Comment on above: Order Comment: Speci men Type: BLOOD SPECIMENOrdering Facility: [facility] Address: [address] [place] [address] Performed By: #### 5 7021-8 ####[facility] LABCLIA [id number] [address] LABCLIA [id number] [place] [address] Hematocrit (Bld) [Volume fraction] 23.6 % Low 39.0-51.0 [facility] Comment on above: Order Comment: Speci men Type: BLOOD SPECIMENOrdering Facility: [facility] Address: [address] [place] [address] Performed By: #### 5 7021-8 ####[facility] LABCLIA [id number] [address] LABCLIA [id number] [place] [address] Hemoglobin (Bld) [Mass/Vol] 7.6 g/dL Low 13.0-17.0 [facility] Comment on above: Order Comment: Speci men Type: BLOOD SPECIMENOrdering Facility: [facility] Address: [address] [place] [address] Performed By: #### 5 7021-8 ####[facility] LABCLIA [id number] [address] LABCLIA [id number] [place] [address] Lymphocytes (Bld) [#/Vol] 0.51 10*3/uL Low 1.00-4.00 [facility] Comment on above: Order Comment: Speci men Type: BLOOD SPECIMENOrdering Facility: [facility] Address: [address] [place] [address] Performed By: #### 5 7021-8 ####[facility] LABCLIA [id number] [address] LABCLIA [id number] [place] [address] Lymphocytes/100 WBC (Bld) 47.0 % Normal [facility] Comment on above: Order Comment: Speci men Type: BLOOD SPECIMENOrdering Facility: [facility] Address: [address] [place] [address] Performed By: #### 5 7021-8 ####[facility] LABCLIA [id number] [address] LABCLIA [id number] [place] [address] MCH (RBC) [Entitic mass] 33.0 pg Normal 26.0-34.0 [facility] Comment on above: Order Comment: Speci men Type: BLOOD SPECIMENOrdering Facility: [facility] Address: [address] [place] [address] Performed By: #### 5 7021-8 ####[facility] LABCLIA [id number] [address] LABCLIA [id number] [place] [address] MCHC (RBC) [Mass/Vol] 32.2 g/dL Normal 30.5-36.0 [facility] Comment on above: Order Comment: Speci men Type: BLOOD SPECIMENOrdering Facility: [facility] Address: [address] [place] [address] Performed By: #### 5 7021-8 ####[facility] LABCLIA [id number] [address] LABCLIA [id number] [place] [address] MCV (RBC) [Entitic vol] 102.6 fL High 80.0-100.0 [facility] Comment on above: Order Comment: Speci men Type: BLOOD SPECIMENOrdering Facility: [facility] Address: [address] [place] [address] Performed By: #### 5 7021-8 ####[facility] LABCLIA [id number] [address] LABCLIA [id number] [place] [address] Monocytes (Bld) [#/Vol] 0.14 10*3/uL Normal <0.87 [facility] Comment on above: Order Comment: Speci men Type: BLOOD SPECIMENOrdering Facility: [facility] Address: [address] [place] [address] Performed By: #### 5 7021-8 ####[facility] LABCLIA [id number] [address] LABCLIA [id number] [place] [address] Monocytes/100 WBC (Bld) 13.0 % Normal [facility] Comment on above: Order Comment: Speci men Type: BLOOD SPECIMENOrdering Facility: [facility] Address: [address] [place] [address] Performed By: #### 5 7021-8 ####[facility] LABCLIA [id number] [address] LABCLIA [id number] [place] [address] Neutrophils (Bld) [#/Vol] 0.40 10*3/uL Low 1.45-7.50 [facility] Comment on above: Order Comment: Speci men Type: BLOOD SPECIMENOrdering Facility: [facility] Address: [address] [place] [address] Performed By: #### 5 7021-8 ####[facility] LABCLIA [id number] [address] LABCLIA [id number] [place] [address] Neutrophils/100 WBC (Bld) 37.0 % Normal [facility] Comment on above: Order Comment: Speci men Type: BLOOD SPECIMENOrdering Facility: [facility] Address: [address] [place] [address] Performed By: #### 5 7021-8 ####[facility] LABCLIA [id number] [place] [id number] [facility] LABCLIA [id number] [place] [address] Nucleated RBC (Bld) [#/Vol] 10*3/uL Normal <0.01 [facility] Comment on above: Order Comment: Speci men Type: BLOOD SPECIMENOrdering Facility: [facility] Address: [address] [place] [address] Performed By: #### 5 7021-8 ####[facility] LABCLIA [id number] [address] LABCLIA [id number] [place] [address] Nucleated RBC/100 WBC (Bld) [Ratio] 0.0 /100 WBC Normal [facility] Comment on above: Order Comment: Speci men Type: BLOOD SPECIMENOrdering Facility: [facility] Address: [address] [place] [address] Performed By: #### 5 7021-8 ####[facility] LABCLIA [id number] [address] LABCLIA [id number] [place] [address] Ovalocytes LM Ql (Bld) Few Normal [facility] Comment on above: Order Comment: Speci men Type: BLOOD SPECIMENOrdering Facility: [facility] Address: [address] [place] [address] Performed By: #### 5 7021-8 ####[facility] LABCLIA [id number] [address] LABCLIA [id number] [place] [address] Platelet mean volume (Bld) [Entitic vol] Normal [facility] Comment on above: Order Comment: Speci men Type: BLOOD SPECIMENOrdering Facility: [facility] Address: [address] [place] [address] Result Comment: Unab le to Report. Performed By: #### 5 7021-8 ####[facility] LABCLIA [id number] [address] LABCLIA [id number] [place] [address] Platelets (Bld) [#/Vol] 52 10*3/uL Low 150-400 [facility] Comment on above: Order Comment: Speci men Type: BLOOD SPECIMENOrdering Facility: [facility] Address: [address] [place] [address] Result Comment: Resu lts checked and verified. No clot detected Performed By: #### 5 7021-8 ####[facility] LABCLIA [id number] [address] LABCLIA [id number] [place] [address] Platelets Estimate (Bld) [#/Vol] Decreased Normal [facility] Comment on above: Order Comment: Speci men Type: BLOOD SPECIMENOrdering Facility: [facility] Address: [address] [place] [address] Performed By: #### 5 7021-8 ####[facility] LABCLIA [id number] [address] LABCLIA [id number] [place] [address] RBC (Bld) [#/Vol] 2.30 10*6/uL Low 4.20-6.00 [facility] Comment on above: Order Comment: Speci men Type: BLOOD SPECIMENOrdering Facility: [facility] Address: [address] [place] [address] Performed By: #### 5 7021-8 ####[facility] LABCLIA [id number] [address] LABCLIA [id number] [place] [address] RBC FRAGMENTS Few Abnormal None Seen [facility] Comment on above: Order Comment: Speci men Type: BLOOD SPECIMENOrdering Facility: [facility] Address: [address] [place] [address] Performed By: #### 5 7021-8 ####[facility] LABCLIA [id number] [address] LABCLIA [id number] [place] [address] RED CELL MORPH Reviewed: see result s of individual morphologies Normal [facility] Comment on above: Order Comment: Speci men Type: BLOOD SPECIMENOrdering Facility: [facility] Address: [address] [place] [address] Performed By: #### 5 7021-8 ####[facility] LABCLIA [id number] [address] LABCLIA [id number] [place] [id number] WBC (Bld) [#/Vol] 1.09 10*3/uL Low 3.70-11.00 [facility] Comment on above: Order Comment: Speci men Type: BLOOD SPECIMENOrdering Facility: [facility] Address: [address] [place], [place] [address] Result Comment: Resu lts checked and verified. No clot detected Performed By: #### 5 7021-8 ####[facility] LABCLIA [id number] [address] LABCLIA [id number] [place] [address] Comprehensive metabolic 2000 panelon 05-27-2022 Albumin [Mass/Vol] 4.0 g/dL Normal 3.9-4.9 [facility] Comment on above: Order Comment: Speci men Type: BLOOD SPECIMENOrdering Facility: [facility] Address: [address] [place] [address] Performed By: #### 2 4323-8, 2531-0 ####[facility] LABCLIA [id number] [place] [address] ALP [Catalytic activity/Vol] 105 U/L Normal 38-113 [facility] Comment on above: Order Comment: Speci men Type: BLOOD SPECIMENOrdering Facility: [facility] Address: [address] [place] [address] Performed By: #### 2 4323-8, 2531-0 ####[facility] LABCLIA [id number] [place] [address] ALT [Catalytic activity/Vol] 45 U/L Normal 10-54 [facility] Comment on above: Order Comment: Speci men Type: BLOOD SPECIMENOrdering Facility: [facility] Address: [address] [place] [address] Performed By: #### 2 4323-8, 2531-0 ####[facility] LABCLIA [id number] [place] [address] Anion gap [Moles/Vol] 6 mmol/L Low 9-18 [facility] Comment on above: Order Comment: Speci men Type: BLOOD SPECIMENOrdering Facility: [facility] Address: [address] [address] Performed By: #### 2 4323-8, 2531-0 ####[facility] LABIA [id number] [place] [address] AST [Catalytic activity/Vol] 18 U/L Normal 14-40 [facility] Comment on above: Order Comment: Speci men Type: BLOOD SPECIMENOrdering Facility: [facility] Address: [address] [place] [address] Performed By: #### 2 43238, 0 ####[facility] LABCLIA [id number] [place] [address] Bilirubin [Mass/Vol] 0.9 mg/dL Normal 0.2-1.3 [facility] Comment on above: Order Comment: Speci men Type: BLOOD SPECIMENOrdering Facility: [facility] Address: [address] [place] [address] Performed By: #### 2 4328, 2531-0 ####[facility] LABCLIA [id number] [place] [address] Calcium [Mass/Vol] 8.7 mg/dL Normal 8.5-10.2 [facility] Comment on above: Order Comment: Speci men Type: BLOOD SPECIMENOrdering Facility: [facility] Address: [address] [place] [address] Performed By: #### 2 4328, 0 ####[facility] LABCLIA [id number] [place] [address] Chloride [Moles/Vol] 106 mmol/L High 97-105 [facility] Comment on above: Order Comment: Speci men Type: BLOOD SPECIMENOrdering Facility: [facility] Address: [address] [place] [address] Performed By: #### 2 4328, 0 ####[facility] LABCLIA [id number] [place] [address] CO2 [Moles/Vol] 33 mmol/L High 22-30 [facility] Comment on above: Order Comment: Speci men Type: BLOOD SPECIMENOrdering Facility: [facility] Address: [address] [place] [address] Performed By: #### 2 4328, 2531-0 ####[facility] LABCLIA [id number] [place] [address] Creatinine [Mass/Vol] 1.64 mg/dL High 0.73-1.22 [facility] Comment on above: Order Comment: Cristinaiman avendaño Type: BLOOD SPECIMENOrdering Facility: [facility] Address: [address] [place] [phone] Performed By: #### 2 4323-8, 2532-0 ####[facility] LABCLIA [id number] [place] [address] ESTIMATED GLOMERULAR FILTRATION RATE 41 mL/min/1.73m??? Low >=60 [facility] Comment on above: Order Comment: Cristinaiman avendaño Type: BLOOD SPECIMENOrdering Facility: [facility] Address: [address] Result Comment: Faye mated Glomerular Filtration Rate [...] actual GFR. Performed By: #### 2 4323-8, 2-0 ####[facility] LABCLIA [id number] [place] [address] Glucose [Mass/Vol] 130 mg/dL High 74-99 [facility] Comment on above: Order Comment: Davi avendaño Type: BLOOD SPECIMENOrdering Facility: [facility] Address: [address] [place] [phone] Result Comment: The [place] [employer] (ADA) provides guidance for cutoff [...] Standards of Medical Care in Diabetes 2016, [place] [employer]. Diabetes Care. 2016.39(Suppl 1). Performed By: #### 2 4323-8, 0 ####[facility] LABCLIA [id number] [place] [address] Potassium [Moles/Vol] 3.5 mmol/L Low 3.7-5.1 [facility] Comment on above: Order Comment: Speci men Type: BLOOD SPECIMENOrdering Facility: [facility] Address: [address] [place] [address] Performed By: #### 2 4328, 2531-0 ####[facility] LABIA [id number] [place] [address] Protein [Mass/Vol] 6.4 g/dL Normal 6.3-8.0 [facility] Comment on above: Order Comment: Speci men Type: BLOOD SPECIMENOrdering Facility: [facility] Address: [address] [place] [address] Performed By: #### 2 4328, 2531-0 ####[facility] LABIA [id number] [place] [address] Sodium [Moles/Vol] 145 mmol/L High 136-144 [facility] Comment on above: Order Comment: Speci men Type: BLOOD SPECIMENOrdering Facility: [facility] Address: [address] [place] [address] Performed By: #### 2 4328, 0 ####[facility] LABCLIA [id number] [place] [address] Urea nitrogen [Mass/Vol] 25 mg/dL High 9-24 [facility] Comment on above: Order Comment: Speci men Type: BLOOD SPECIMENOrdering Facility: [facility] Address: [address] [address] Performed By: #### 2 43238, 2531-0 ####[facility] LABCLIA [id number] [place] [address] Albumin [Mass/Vol] 4.0 g/dL 3.9 - 4.9 g/dL [facility] ALP [Catalytic activity/Vol] 105 U/L 38 - 113 U/L [facility] ALT [Catalytic activity/Vol] 45 U/L 10 - 54 U/L [facility] Anion gap [Moles/Vol] 6 mmol/L Low 9 - 18 mmol/L [facility] AST [Catalytic activity/Vol] 18 U/L 14 - 40 U/L [facility] Bilirubin [Mass/Vol] 0.9 mg/dL 0.2 - 1.3 mg/dL [facility] Calcium [Mass/Vol] 8.7 mg/dL 8.5 - 10.2 mg/dL [facility] Chloride [Moles/Vol] 106 mmol/L High 97 - 105 mmol/L [facility] CO2 [Moles/Vol] 33 mmol/L High 22 - 30 mmol/L [facility] Creatinine [Mass/Vol] 1.64 mg/dL High 0.73 - 1.22 mg/dL [facility] Estimated Glomerular Filtration Rate 41 mL/min/1.73m Low >=60 mL/min/1.73m [facility] Glucose [Mass/Vol] 130 mg/dL High 74 - 99 mg/dL [facility] Potassium [Moles/Vol] 3.5 mmol/L Low 3.7 - 5.1 mmol/L [facility] Protein [Mass/Vol] 6.4 g/dL 6.3 - 8.0 g/dL [facility] Sodium [Moles/Vol] 145 mmol/L High 136 - 144 mmol/L [facility] Urea nitrogen [Mass/Vol] 25 mg/dL High 9 - 24 mg/dL [facility] LD LACTATE DEHYDROon 022 LDH [Catalytic activity/Vol] 209 U/L 135 - 225 U/L [facility] LDH SerPl-cCncon 05-27-2022 LDH [Catalytic activity/Vol] 209 U/L Normal 135-225 [facility] Comment on above: Order Comment: Speci men Type: BLOOD SPECIMENOrdering Facility: [facility] Address: [address] [place] [address] [place] [address] Performed By: #### 2 4323-8, 2532-0 ####[facility] LABCLIA [id number] [place] [address] CNPNon 05-23-2022 CNPN Normal [facility] HEMOGLOBIN AND HEMATOCRITon 05-23-2022 Hematocrit (Bld) [Volume fraction] 22.7 % Critically low 42.0-54.0 [facility] Comment on above: Performed By: #### T NS, PRBC #### [facility] [address] [address] [address] Benito To Hemoglobin (Bld) [Mass/Vol] 7.3 g/dL Critically low 14.0-18.0 [facility] Comment on above: Performed By: #### T NS, PRBC #### [facility] [address] [address] [address] Benito To TYPE AND SCREENon 05-23-2022 TYPE AND SCREEN Negative Normal [facility] Comment on above: Performed By: #### T NS, PRBC #### [facility] [address] [address] [address] Benito To HISTORY PHYSICALon HISTORY PHYSICAL HNO ID: [id number] Author: Elysia Esposito MD Service: ? Author Type: Physician Type: HANDP Filed: 05/26/2022 11:07 AM Note Text: Please see transcribed note Normal [facility] CBC W Auto Differential pane l (Bld)on 05-20-2022 Anisocytosis Ql (Bld) Present Normal [facility] Comment on above: Order Comment: Speci men Type: BLOOD SPECIMENOrdering Facility: [facility] Address: [address] [place] [address] Performed By: #### 5 7021-8 ####[facility] LABCLIA [id number] [address] [address] [facility] LABCLIA [id number] [place] [address] Basophils (Bld) [#/Vol] 0.01 10*3/uL Normal <0.11 [facility] Comment on above: Order Comment: Speci men Type: BLOOD SPECIMENOrdering Facility: [facility] Address: [address] [place], [place] [address] Performed By: #### 5 7021-8 ####[facility] LABCLIA [id number] [address] LABCLIA [id number] [place] [address] Basophils/100 WBC (Bld) 0.5 % Normal [facility] Comment on above: Order Comment: Speci men Type: BLOOD SPECIMENOrdering Facility: [facility] Address: [address] [place] [address] Performed By: #### 5 7021-8 ####[facility] LABCLIA [id number] [address] LABCLIA [id number] [place] [address] Dacrocytes LM Ql (Bld) Few Normal [facility] Comment on above: Order Comment: Speci men Type: BLOOD SPECIMENOrdering Facility: [facility] Address: [address] [place] [address] Performed By: #### 5 7021-8 ####[facility] LABCLIA [id number] [address] LABCLIA [id number] [place] [id number] Differential cell count method Nom (Bld) Manual Normal [facility] Comment on above: Order Comment: Speci men Type: BLOOD SPECIMENOrdering Facility: [facility] Address: [address] [place], [place] [address] Performed By: #### 5 7021-8 ####[facility] LABCLIA [id number] [address] [facility] LABCLIA [id number] [place] [address] Eosinophils (Bld) [#/Vol] 0.03 10*3/uL Normal <0.46 [facility] Comment on above: Order Comment: Speci men Type: BLOOD SPECIMENOrdering Facility: [facility] Address: [address] [place] [address] Performed By: #### 5 7021-8 ####[facility] LABCLIA [id number] [address] LABCLIA [id number] [place] [address] Eosinophils/100 WBC (Bld) 1.5 % Normal [facility] Comment on above: Order Comment: Speci men Type: BLOOD SPECIMENOrdering Facility: [facility] Address: [address] [place] [address] Performed By: #### 5 7021-8 ####[facility] LABCLIA [id number] [address] LABCLIA [id number] [place] [address] Erythrocyte distribution width (RBC) [Ratio] 23.9 % High 11.5-15.0 [facility] Comment on above: Order Comment: Speci men Type: BLOOD SPECIMENOrdering Facility: [facility] Address: [address] [place], [place] [address] Performed By: #### 5 7021-8 ####[facility] LABCLIA [id number] [address] LABCLIA [id number] [place] [address] Hematocrit (Bld) [Volume fraction] 23.9 % Low 39.0-51.0 [facility] Comment on above: Order Comment: Speci men Type: BLOOD SPECIMENOrdering Facility: [facility] Address: [address] [place], [place] [address] Performed By: #### 5 7021-8 ####[facility] LABCLIA [id number] [address] LABCLIA [id number] [place] [address] Hemoglobin (Bld) [Mass/Vol] 7.6 g/dL Low 13.0-17.0 [facility] Comment on above: Order Comment: Speci men Type: BLOOD SPECIMENOrdering Facility: [facility] Address: [address] [place], [place] [address] Performed By: #### 5 7021-8 ####[facility] LABCLIA [id number] [address] LABCLIA [id number] [place] [address] Lymphocytes (Bld) [#/Vol] 0.71 10*3/uL Low 1.00-4.00 [facility] Comment on above: Order Comment: Speci men Type: BLOOD SPECIMENOrdering Facility: [facility] Address: [address] [place], [place] [address] Performed By: #### 5 7021-8 ####[facility] LABCLIA [id number] [address] LABCLIA [id number] [place] [address] Lymphocytes/100 WBC (Bld) 40.8 % Normal [facility] Comment on above: Order Comment: Speci men Type: BLOOD SPECIMENOrdering Facility: [facility] Address: [address] [place], [place] [address] Performed By: #### 5 7021-8 ####[facility] LABCLIA [id number] [address] [facility] LABCLIA [id number] [place] [address] MCH (RBC) [Entitic mass] 33.0 pg Normal 26.0-34.0 [facility] Comment on above: Order Comment: Speci men Type: BLOOD SPECIMENOrdering Facility: [facility] Address: [address] [place] [address] Performed By: #### 5 7021-8 ####[facility] LABIA [id number] [address] LABCLIA [id number] [place] [address] MCHC (RBC) [Mass/Vol] 31.8 g/dL Normal 30.5-36.0 [facility] Comment on above: Order Comment: Speci men Type: BLOOD SPECIMENOrdering Facility: [facility] Address: [address] [place] [address] Performed By: #### 5 7021-8 ####[facility] LABIA [id number] [address] LABCLIA [id number] [place] [address] MCV (RBC) [Entitic vol] 103.9 fL High 80.0-100.0 [facility] Comment on above: Order Comment: Speci men Type: BLOOD SPECIMENOrdering Facility: [facility] Address: [address] [place], [place] [address] Performed By: #### 5 7021-8 ####[facility] LABIA [id number] [address] LABCLIA [id number] [place] [address] Monocytes (Bld) [#/Vol] 0.38 10*3/uL Normal <0.87 [facility] Comment on above: Order Comment: Speci men Type: BLOOD SPECIMENOrdering Facility: [facility] Address: [address] [place], [place] [address] Performed By: #### 5 7021-8 ####[facility] LABCLIA [id number] [address] LABCLIA [id number] [place] [address] Monocytes/100 WBC (Bld) 21.7 % Normal [facility] Comment on above: Order Comment: Speci men Type: BLOOD SPECIMENOrdering Facility: [facility] Address: [address] [place], [place] [address] Performed By: #### 5 7021-8 ####[facility] LABCLIA [id number] [address] LABCLIA [id number] [place] [address] Neutrophils (Bld) [#/Vol] 0.61 10*3/uL Low 1.45-7.50 [facility] Comment on above: Order Comment: Speci men Type: BLOOD SPECIMENOrdering Facility: [facility] Address: [address] [place], [place] [address] Performed By: #### 5 7021-8 ####[facility] LABCLIA [id number] [address] LABCLIA [id number] [place] [address] Neutrophils/100 WBC (Bld) 35.5 % Normal [facility] Comment on above: Order Comment: Speci men Type: BLOOD SPECIMENOrdering Facility: [facility] Address: [address] [place], [place] [address] Performed By: #### 5 7021-8 ####[facility] LABCLIA [id number] [place] [id number] LABCLIA [id number] [place] [address] Nucleated RBC (Bld) [#/Vol] 10*3/uL Normal <0.01 [facility] Comment on above: Order Comment: Speci men Type: BLOOD SPECIMENOrdering Facility: [facility] Address: [address] [place] [address] Result Comment: This result was previously suppressed from the chart. Performed By: #### 5 7021-8 ####[facility] LABCLIA [id number] [address] LABCLIA [id number] [place] [address] Nucleated RBC/100 WBC (Bld) [Ratio] 0.0 /100 WBC Normal [facility] Comment on above: Order Comment: Speci men Type: BLOOD SPECIMENOrdering Facility: [facility] Address: [address] [place] [address] Performed By: #### 5 7021-8 ####[facility] LABCLIA [id number] [address] LABCLIA [id number] [place] [address] Ovalocytes LM Ql (Bld) Few Normal [facility] Comment on above: Order Comment: Speci men Type: BLOOD SPECIMENOrdering Facility: [facility] Address: [address] [place], [place] [address] Performed By: #### 5 7021-8 ####[facility] LABCLIA [id number] [address] LABCLIA [id number] [place] [address] Platelet mean volume (Bld) [Entitic vol] Normal [facility] Comment on above: Order Comment: Speci men Type: BLOOD SPECIMENOrdering Facility: [facility] Address: [address] [place], [place] [address] Result Comment: Unab le to Report. Performed By: #### 5 7021-8 ####[facility] LABCLIA [id number] [address] LABCLIA [id number] [place] [address] Platelets (Bld) [#/Vol] 69 10*3/uL Low 150-400 [facility] Comment on above: Order Comment: Speci men Type: BLOOD SPECIMENOrdering Facility: [facility] Address: [address] [place] [address] Result Comment: Resu lts checked and verified. No clot detected Performed By: #### 5 7021-8 ####[facility] LABCLIA [id number] [address] LABCLIA [id number] [place] [address] Platelets Estimate (Bld) [#/Vol] Decreased Normal [facility] Comment on above: Order Comment: Speci men Type: BLOOD SPECIMENOrdering Facility: [facility] Address: [address] [place] [address] Performed By: #### 5 7021-8 ####[facility] LABCLIA [id number] [address] LABCLIA [id number] [place] [address] Polychromasia LM Ql (Bld) Slight Normal [facility] Comment on above: Order Comment: Speci men Type: BLOOD SPECIMENOrdering Facility: [facility] Address: [address] [place], [place] [address] Performed By: #### 5 7021-8 ####[facility] LABCLIA [id number] [place] [address] LABCLIA [id number] [place] [address] RBC (Bld) [#/Vol] 2.30 10*6/uL Low 4.20-6.00 [facility] Comment on above: Order Comment: Speci men Type: BLOOD SPECIMENOrdering Facility: [facility] Address: [address] [place] [address] Performed By: #### 5 7021-8 ####[facility] LABCLIA [id number] [address] LABCLIA [id number] [place] [address] RBC FRAGMENTS Few Abnormal None Seen [facility] Comment on above: Order Comment: Speci men Type: BLOOD SPECIMENOrdering Facility: [facility] Address: [address] [place] [address] Performed By: #### 5 7021-8 ####[facility] LABCLIA [id number] [address] LABCLIA [id number] [place] [address] RED CELL MORPH Reviewed: see result s of individual morphologies Normal [facility] Comment on above: Order Comment: Speci men Type: BLOOD SPECIMENOrdering Facility: [facility] Address: [address] [place] [address] Performed By: #### 5 7021-8 ####[facility] LABCLIA [id number] [address] LABCLIA [id number] [place] [address] Variant lymphocytes/100 WBC (Bld) 0.0 % Normal [facility] Comment on above: Order Comment: Speci men Type: BLOOD SPECIMENOrdering Facility: [facility] Address: [address] Performed By: #### 5 7021-8 ####[facility] LABCLIA [id number] [address] LABCLIA [id number] [place] [address] WBC (Bld) [#/Vol] 1.73 10*3/uL Low 3.70-11.00 [facility] Comment on above: Order Comment: Speci men Type: BLOOD SPECIMENOrdering Facility: [facility] Address: [address] [place], [place] [address] Result Comment: Resu lts checked and verified. No clot detected Performed By: #### 5 7021-8 ####[facility] LABCLIA [id number] [address] LABCLIA [id number] [place] [address] CNOVSPon 05-20-2022 CNOVSP Normal [facility] CNPNon 05-20-2022 CNPN Normal [facility] Comprehensive metabolic 2000 panelon 05-20-2022 Albumin [Mass/Vol] 4.0 g/dL Normal 3.9-4.9 [facility] Comment on above: Order Comment: Speci men Type: BLOOD SPECIMENOrdering Facility: [facility] Address: [address] [place], [place] [address] Performed By: #### 2 532-0, 47056-1 ####[facility] LABCLIA [id number] [place] [address] ALP [Catalytic activity/Vol] 101 U/L Normal 38-113 [facility] Comment on above: Order Comment: Speci men Type: BLOOD SPECIMENOrdering Facility: [facility] Address: [address] [place], [place] [address] Performed By: #### 2 532-0, 73893-0 ####[facility] LABCLIA [id number] [place] [address] ALT [Catalytic activity/Vol] 43 U/L Normal 10-54 [facility] Comment on above: Order Comment: Speci men Type: BLOOD SPECIMENOrdering Facility: [facility] Address: [address] [place] [address] Performed By: #### 2 532-0, 22626-5 ####[facility] LABCLIA [id number] [place] [address] Anion gap [Moles/Vol] 7 mmol/L Low 9-18 [facility] Comment on above: Order Comment: Speci men Type: BLOOD SPECIMENOrdering Facility: [facility] Address: [address] [place] [address] Performed By: #### 2 532-0, 41542-9 ####[facility] LABCLIA [id number] [place] [address] AST [Catalytic activity/Vol] 25 U/L Normal 14-40 [facility] Comment on above: Order Comment: Speci men Type: BLOOD SPECIMENOrdering Facility: [facility] Address: [address] [place] [address] Performed By: #### 2 532-0, ####[facility] LABCLIA [id number] [place] [address] Bilirubin [Mass/Vol] 0.7 mg/dL Normal 0.2-1.3 [facility] Comment on above: Order Comment: Speci men Type: BLOOD SPECIMENOrdering Facility: [facility] Address: [address] [place] [address] Performed By: #### 2 532-0, ####[facility] LABIA [id number] [place] [address] Calcium [Mass/Vol] 8.3 mg/dL Low 8.5-10.2 [facility] Comment on above: Order Comment: Speci men Type: BLOOD SPECIMENOrdering Facility: [facility] Address: [address] [place] [address] Performed By: #### 2 532-0, 39715-6 ####[facility] LABCLIA [id number] [place] [address] Chloride [Moles/Vol] 105 mmol/L Normal 97-105 [facility] Comment on above: Order Comment: Speci men Type: BLOOD SPECIMENOrdering Facility: [facility] Address: [address] [place] [address] Performed By: #### 2 532-0, 06805-5 ####[facility] LABCLIA [id number] [place] [address] CO2 [Moles/Vol] 33 mmol/L High 22-30 [facility] Comment on above: Order Comment: Speci men Type: BLOOD SPECIMENOrdering Facility: [facility] Address: [address] [place] [address] Performed By: #### 2 532-0, 17949-5 ####[facility] LABCLIA [id number] [place] [address] Creatinine [Mass/Vol] 1.69 mg/dL High 0.73-1.22 [facility] Comment on above: Order Comment: Speci men Type: BLOOD SPECIMENOrdering Facility: [facility] Address: [address] [place] [address] Performed By: #### 2 532-0, 53300-0 ####[facility] LABCLIA [id number] [place] [address] ESTIMATED GLOMERULAR FILTRATION RATE 40 mL/min/1.73m??? Low >=60 [facility] Comment on above: Order Comment: Speci men Type: BLOOD SPECIMENOrdering Facility: [facility] Address: [address] [place] [address] Result Comment: Faye mated Glomerular Filtration Rate [...] actual GFR. Performed By: #### 2 532-0, ####[facility] LABCLIA [id number] [place] [address] Glucose [Mass/Vol] 128 mg/dL High 74-99 [facility] Comment on above: Order Comment: Speciman avendaño Type: BLOOD SPECIMENOrdering Facility: [facility] Address: [address] [place] [address] Result Comment: The [place] [employer] (ADA) provides guidance for cutoff [...] Standards of Medical Care in Diabetes 2016, [place] [employer]. Diabetes Care. 2016.39(Suppl 1). Performed By: #### 2 532-0, ####[facility] LABCLIA [id number] [place] [address] Potassium [Moles/Vol] 4.2 mmol/L Normal 3.7-5.1 [facility] Comment on above: Order Comment: Davi avendaño Type: BLOOD SPECIMENOrdering Facility: [facility] Address: [address] [place] [address] Performed By: #### 2 532-0, 91247-0 ####[facility] LABCLIA [id number] [place] [address] Protein [Mass/Vol] 6.2 g/dL Low 6.3-8.0 [facility] Comment on above: Order Comment: Speci men Type: BLOOD SPECIMENOrdering Facility: [facility] Address: [address] [place] [address] Performed By: #### 2 532-0, 71896-4 ####[facility] LABCLIA [id number] [place] [address] Sodium [Moles/Vol] 145 mmol/L High 136-144 [facility] Comment on above: Order Comment: Speci men Type: BLOOD SPECIMENOrdering Facility: [facility] Address: [address] [place] [address] Performed By: #### 2 532-0, 44097-0 ####[facility] LABIA [id number] [place] [address] Urea nitrogen [Mass/Vol] 28 mg/dL High 9-24 [facility] Comment on above: Order Comment: Speci men Type: BLOOD SPECIMENOrdering Facility: [facility] Address: [address] [place] [address] Performed By: #### 2 532-0, 36491-0 ####[facility] LABIA [id number] [place] [address] LDH SerPl-cCncon 05-20-2022 LDH [Catalytic activity/Vol] 223 U/L Normal 135-225 [facility] Comment on above: Order Comment: Speci men Type: BLOOD SPECIMENOrdering Facility: [facility] Address: [address] [place] [address] Performed By: #### 2 532-0, 68469-1 ####[facility] LABIA [id number] [place] [address] CNPNon 05-14-2022 CNPN Normal [facility] PRBC LEUKOREDUCEDon 05-14-20 ABO and Rh group Nom (Bld) Cross Match Result Compatible Unit Blood Type A Neg Unit Number [id number] Status Information Transfused Product ID Red Blood Cells Product Code [id number] Cross Match Result Compatible Unit Blood Type A Neg Unit Number [id number] Status Information Transfused Product ID Red Blood Cells Product Code [id number] Normal [facility] Comment on above: Performed By: #### T NS, PRBC #### [facility] [address] [address] [address] Benito To CBC W Auto Differential pane l (Bld)on 05-13-2022 Anisocytosis Ql (Bld) Present Normal [facility] Comment on above: Order Comment: Speci men Type: BLOOD SPECIMENOrdering Facility: [facility] Address: [address] [place] [address] Performed By: #### 5 7021-8 ####[facility] LABCLIA [id number] [address] LABCLIA [id number] [place] [address] [place] Basophils (Bld) [#/Vol] 0.02 10*3/uL Normal <0.11 [facility] Comment on above: Order Comment: Speci men Type: BLOOD SPECIMENOrdering Facility: [facility] Address: [address] [place] [address] Performed By: #### 5 7021-8 ####[facility] LABCLIA [id number] [address] LABCLIA [id number] [place] [address] [place] Basophils/100 WBC (Bld) 0.9 % Normal [facility] Comment on above: Order Comment: Speci men Type: BLOOD SPECIMENOrdering Facility: [facility] Address: [address] [place] [address] Performed By: #### 5 7021-8 ####[facility] LABCLIA [id number] [address] LABCLIA [id number] [place] [address] [place] Differential cell count method Nom (Bld) Manual Normal [facility] Comment on above: Order Comment: Speci men Type: BLOOD SPECIMENOrdering Facility: [facility] Address: [address] [place] [address] Performed By: #### 5 7021-8 ####[facility] LABCLIA [id number] [address] LABCLIA [id number] [place] [address] [place] Eosinophils (Bld) [#/Vol] 0.00 10*3/uL Normal <0.46 [facility] Comment on above: Order Comment: Speci men Type: BLOOD SPECIMENOrdering Facility: [facility] Address: [address] [place] [address] Performed By: #### 5 7021-8 ####[facility] LABCLIA [id number] [address] LABCLIA [id number] [place] [address] [place] Eosinophils/100 WBC (Bld) 0.0 % Normal [facility] Comment on above: Order Comment: Speci men Type: BLOOD SPECIMENOrdering Facility: [facility] Address: [address] [place], [place] [address] Performed By: #### 5 7021-8 ####[facility] LABCLIA [id number] [address] LABCLIA [id number] [place] [address] [place] Erythrocyte distribution width (RBC) [Ratio] 23.4 % High 11.5-15.0 [facility] Comment on above: Order Comment: Speci men Type: BLOOD SPECIMENOrdering Facility: [facility] Address: [address] [place], [place] [address] Performed By: #### 5 7021-8 ####[facility] LABCLIA [id number] [address] LABCLIA [id number] [place] [address] [place] Hematocrit (Bld) [Volume fraction] 26.2 % Low 39.0-51.0 [facility] Comment on above: Order Comment: Speci men Type: BLOOD SPECIMENOrdering Facility: [facility] Address: [address] [place] [address] Performed By: #### 5 7021-8 ####[facility] LABCLIA [id number] [address] LABCLIA [id number] [place] [address] [place] Hemoglobin (Bld) [Mass/Vol] 8.3 g/dL Low 13.0-17.0 [facility] Comment on above: Order Comment: Speci men Type: BLOOD SPECIMENOrdering Facility: [facility] Address: [address] [place] [address] Performed By: #### 5 7021-8 ####[facility] LABCLIA [id number] [address] LABCLIA [id number] [place] [address] [place] Lymphocytes (Bld) [#/Vol] 0.86 10*3/uL Low 1.00-4.00 [facility] Comment on above: Order Comment: Speci men Type: BLOOD SPECIMENOrdering Facility: [facility] Address: [address] [place], [place] [address] Performed By: #### 5 7021-8 ####[facility] LABCLIA [id number] [address] LABCLIA [id number] [place] [address] [place] Lymphocytes/100 WBC (Bld) 44.1 % Normal [facility] Comment on above: Order Comment: Speci men Type: BLOOD SPECIMENOrdering Facility: [facility] Address: [address] [place] [address] Performed By: #### 5 7021-8 ####[facility] LABCLIA [id number] [address] LABCLIA [id number] [place] [address] [place] MCH (RBC) [Entitic mass] 32.9 pg Normal 26.0-34.0 [facility] Comment on above: Order Comment: Speci men Type: BLOOD SPECIMENOrdering Facility: [facility] Address: [address] [place] [address] Performed By: #### 5 7021-8 ####[facility] LABCLIA [id number] [address] LABCLIA [id number] [address] [place] MCHC (RBC) [Mass/Vol] 31.7 g/dL Normal 30.5-36.0 [facility] Comment on above: Order Comment: Speci men Type: BLOOD SPECIMENOrdering Facility: [facility] Address: [address] [place], [place] [address] Performed By: #### 5 7021-8 ####[facility] LABCLIA [id number] [address] LABCLIA [id number] [place] [address] [place] MCV (RBC) [Entitic vol] 104.0 fL High 80.0-100.0 [facility] Comment on above: Order Comment: Speci men Type: BLOOD SPECIMENOrdering Facility: [facility] Address: [address] [place], [place] [address] Performed By: #### 5 7021-8 ####[facility] LABCLIA [id number] [address] LABCLIA [id number] [place] [address] [place] Metamyelocytes/100 WBC (Bld) 0.4 % Normal [facility] Comment on above: Order Comment: Speci men Type: BLOOD SPECIMENOrdering Facility: [facility] Address: [address] [place], [place] [address] Performed By: #### 5 7021-8 ####[facility] LABCLIA [id number] [address] LABCLIA [id number] [place] [address] [place] Monocytes (Bld) [#/Vol] 0.43 10*3/uL Normal <0.87 [facility] Comment on above: Order Comment: Speci men Type: BLOOD SPECIMENOrdering Facility: [facility] Address: [address] [place], [place] [address] Performed By: #### 5 7021-8 ####[facility] LABCLIA [id number] [address] LABCLIA [id number] [place] [address] [place] Monocytes/100 WBC (Bld) 21.8 % Normal [facility] Comment on above: Order Comment: Speci men Type: BLOOD SPECIMENOrdering Facility: [facility] Address: [address] [place], [place] [address] Performed By: #### 5 7021-8 ####[facility] LABCLIA [id number] [address] LABCLIA [id number] [place] [address] [place] MYELO% 0.9 % Normal [facility] Comment on above: Order Comment: Speci men Type: BLOOD SPECIMENOrdering Facility: [facility] Address: [address] [place], [place] [address] Performed By: #### 5 7021-8 ####[facility] LABCLIA [id number] [address] LABCLIA [id number] [place] [address] [place] Neutrophils (Bld) [#/Vol] 0.63 10*3/uL Low 1.45-7.50 [facility] Comment on above: Order Comment: Speci men Type: BLOOD SPECIMENOrdering Facility: [facility] Address: [address] [place], [place] [address] Performed By: #### 5 7021-8 ####[facility] LABCLIA [id number] [address] LABCLIA [id number] [place] [address] [place] Neutrophils/100 WBC (Bld) 31.9 % Normal [facility] Comment on above: Order Comment: Speci men Type: BLOOD SPECIMENOrdering Facility: [facility] Address: [address] [place], [place] [address] Performed By: #### 5 7021-8 ####[facility] LABCLIA [id number] [address] LABCLIA [id number] [place] [address] [place] Nucleated RBC (Bld) [#/Vol] 10*3/uL Normal <0.01 [facility] Comment on above: Order Comment: Speci men Type: BLOOD SPECIMENOrdering Facility: [facility] Address: [address] [place], [place] [address] Result Comment: This result was previously suppressed from the chart. Performed By: #### 5 7021-8 ####[facility] LABCLIA [id number] [address] LABCLIA [id number] [place] [address] [place] Nucleated RBC/100 WBC (Bld) [Ratio] 0.0 /100 WBC Normal [facility] Comment on above: Order Comment: Speci men Type: BLOOD SPECIMENOrdering Facility: [facility] Address: [address] [place], [place] [address] Performed By: #### 5 7021-8 ####[facility] LABCLIA [id number] [address] LABCLIA [id number] [place] [address] [place] Ovalocytes LM Ql (Bld) Few Normal [facility] Comment on above: Order Comment: Speci men Type: BLOOD SPECIMENOrdering Facility: [facility] Address: [address] [place] [address] Performed By: #### 5 7021-8 ####[facility] LABCLIA [id number] [address] LABCLIA [id number] [place] [address] [place] Platelet mean volume (Bld) [Entitic vol] 13.0 fL High 9.0-12.7 [facility] Comment on above: Order Comment: Speci men Type: BLOOD SPECIMENOrdering Facility: [facility] Address: [address] [place] [address] Performed By: #### 5 7021-8 ####[facility] LABCLIA [id number] [address] LABCLIA [id number] [place] [address] [place] Platelets (Bld) [#/Vol] 75 10*3/uL Low 150-400 [facility] Comment on above: Order Comment: Speci men Type: BLOOD SPECIMENOrdering Facility: [facility] Address: [address] [place] [address] Result Comment: Resu lts checked and verified. No clot detected. Sample checked for clot Performed By: #### 5 7021-8 ####[facility] LABCLIA [id number] [address] LABCLIA [id number] [place] [address] [place] Platelets Estimate (Bld) [#/Vol] Decreased Normal [facility] Comment on above: Order Comment: Speci men Type: BLOOD SPECIMENOrdering Facility: [facility] Address: [address] [place] [address] Performed By: #### 5 7021-8 ####[facility] LABCLIA [id number] [address] LABCLIA [id number] [place] [address] [place] Polychromasia LM Ql (Bld) Slight Normal [facility] Comment on above: Order Comment: Speci men Type: BLOOD SPECIMENOrdering Facility: [facility] Address: [address] [place] [address] Performed By: #### 5 7021-8 ####[facility] LABCLIA [id number] [address] LABCLIA [id number] [place] [address] [place] RBC (Bld) [#/Vol] 2.52 10*6/uL Low 4.20-6.00 [facility] Comment on above: Order Comment: Speci men Type: BLOOD SPECIMENOrdering Facility: [facility] Address: [address] [place] [address] Performed By: #### 5 7021-8 ####[facility] LABCLIA [id number] [address] LABCLIA [id number] [place] [address] [place] RED CELL MORPH Reviewed: see result s of individual morphologies Normal [facility] Comment on above: Order Comment: Speci men Type: BLOOD SPECIMENOrdering Facility: [facility] Address: [address] [place], [place] [address] Performed By: #### 5 7021-8 ####[facility] LABCLIA [id number] [address] LABCLIA [id number] [place] [address] [place] Variant lymphocytes/100 WBC (Bld) 0.0 % Normal [facility] Comment on above: Order Comment: Speci men Type: BLOOD SPECIMENOrdering Facility: [facility] Address: [address] [place], [place] [address] Performed By: #### 5 7021-8 ####[facility] LABCLIA [id number] [address] LABCLIA [id number] [place] [address] [place] WBC (Bld) [#/Vol] 1.96 10*3/uL Low 3.70-11.00 [facility] Comment on above: Order Comment: Speci men Type: BLOOD SPECIMENOrdering Facility: [facility] Address: [address] [place] [address] Performed By: #### 5 7021-8 ####[facility] LABCLIA [id number] [address] LABCLIA [id number] [address] [place] WBC Left Shift Ql (Bld) Present Normal [facility] Comment on above: Order Comment: Speci men Type: BLOOD SPECIMENOrdering Facility: [facility] Address: [address] [place] [address] Performed By: #### 5 7021-8 ####[facility] LABCLIA [id number] [place], [place] [address] LABCLIA [id number] [place] [address] [place] [facility] [place] Comprehensive metabolic 2000 panelon 05-13-2022 Albumin [Mass/Vol] 3.9 g/dL Normal 3.9-4.9 [facility] Comment on above: Order Comment: Speci men Type: BLOOD SPECIMENOrdering Facility: [facility] Address: [address] [place] [address] Performed By: #### 2 532-0, 49597-4 ####[facility] LABCLIA [id number] [place] [address] ALP [Catalytic activity/Vol] 93 U/L Normal 38-113 [facility] Comment on above: Order Comment: Speci men Type: BLOOD SPECIMENOrdering Facility: [facility] Address: [address] [place] [address] Performed By: #### 2 532-0, 81764-1 ####[facility] LABCLIA [id number] [place] [address] ALT [Catalytic activity/Vol] 29 U/L Normal 10-54 [facility] Comment on above: Order Comment: Speci men Type: BLOOD SPECIMENOrdering Facility: [facility] Address: [address] [place], [place] [address] Performed By: #### 2 532-0, 39491-6 ####[facility] LABCLIA [id number] [place] [address] Anion gap [Moles/Vol] 11 mmol/L Normal 9-18 [facility] Comment on above: Order Comment: Speci men Type: BLOOD SPECIMENOrdering Facility: [facility] Address: [address] [place], [place] [address] Performed By: #### 2 532-0, ####[facility] LABCLIA [id number] [place] [address] AST [Catalytic activity/Vol] 14 U/L Normal 14-40 [facility] Comment on above: Order Comment: Speci men Type: BLOOD SPECIMENOrdering Facility: [facility] Address: [address] [place], [place] [address] Performed By: #### 2 532-0, 48757-1 ####[facility] LABIA [id number] [place] [address] Bilirubin [Mass/Vol] 0.8 mg/dL Normal 0.2-1.3 [facility] Comment on above: Order Comment: Speci men Type: BLOOD SPECIMENOrdering Facility: [facility] Address: [address] [place], [place] [address] Performed By: #### 2 532-0, ####[facility] LABIA [id number] [place] [address] Calcium [Mass/Vol] 8.8 mg/dL Normal 8.5-10.2 [facility] Comment on above: Order Comment: Speci men Type: BLOOD SPECIMENOrdering Facility: [facility] Address: [address] [place], [place] [address] Performed By: #### 2 532-0, ####[facility] LABIA [id number] [place] [address] Chloride [Moles/Vol] 102 mmol/L Normal 97-105 [facility] Comment on above: Order Comment: Speci men Type: BLOOD SPECIMENOrdering Facility: [facility] Address: [address] [place], [place] [address] Performed By: #### 2 532-0, 07193-0 ####[facility] LABCLIA [id number] [place] [address] CO2 [Moles/Vol] 28 mmol/L Normal 22-30 [facility] Comment on above: Order Comment: Speci men Type: BLOOD SPECIMENOrdering Facility: [facility] Address: [address] [place] [address] Performed By: #### 2 532-0, ####[facility] LABCLIA [id number] [place] [address] Creatinine [Mass/Vol] 1.63 mg/dL High 0.73-1.22 [facility] Comment on above: Order Comment: Speci men Type: BLOOD SPECIMENOrdering Facility: [facility] Address: [address] [place] [address] Performed By: #### 2 532-0, 78045-9 ####[facility] LABCLIA [id number] [place] [address] ESTIMATED GLOMERULAR FILTRATION RATE 42 mL/min/1.73m??? Low >=60 [facility] Comment on above: Order Comment: Speci men Type: BLOOD SPECIMENOrdering Facility: [facility] Address: [address] [place] [address] Result Comment: Faye mated Glomerular Filtration Rate [...] actual GFR. Performed By: #### 2 532-0, 11547-6 ####[facility] LABCLIA [id number] [place] [address] Glucose [Mass/Vol] 191 mg/dL High 74-99 [facility] Comment on above: Order Comment: Speci men Type: BLOOD SPECIMENOrdering Facility: [facility] [facility] Address: [address] [place], [place] [address] Result Comment: The [place] [employer] (ADA) provides guidance for cutoff [...] Standards of Medical Care in Diabetes 2016, [place] [employer]. Diabetes Care. 2016.39(Suppl 1). Performed By: #### 2 532-0, 86645-4 ####[facility] LABCLIA [id number] [place] [address] Potassium [Moles/Vol] 3.8 mmol/L Normal 3.7-5.1 [facility] Comment on above: Order Comment: Speci men Type: BLOOD SPECIMENOrdering Facility: [facility] Address: [address] [place], [place] [address] Performed By: #### 2 532-0, 49685-2 ####[facility] LABCLIA [id number] [place] [address] Protein [Mass/Vol] 6.0 g/dL Low 6.3-8.0 [facility] Comment on above: Order Comment: Speci men Type: BLOOD SPECIMENOrdering Facility: [facility] Address: [address] [place], [place] [address] Performed By: #### 2 532-0, 28519-0 ####[facility] LABCLIA [id number] [place] [address] Sodium [Moles/Vol] 141 mmol/L Normal 136-144 [facility] Comment on above: Order Comment: Speci men Type: BLOOD SPECIMENOrdering Facility: [facility] Address: [address] [place] [address] Performed By: #### 2 532-0, 58692-2 ####[facility] LABCLIA [id number] [place] [address] Urea nitrogen [Mass/Vol] 22 mg/dL Normal 9-24 [facility] Comment on above: Order Comment: Speci men Type: BLOOD SPECIMENOrdering Facility: [facility] Address: [address] [place] [address] Performed By: #### 2 532-0, 24954-8 ####[facility] LABCLIA [id number] [place] [address] LDH SerPl-cCncon 05-13-2022 LDH [Catalytic activity/Vol] 218 U/L Normal 135-225 [facility] Comment on above: Order Comment: Speci men Type: BLOOD SPECIMENOrdering Facility: [facility] Address: [address] [place] [address] Performed By: #### 2 532-0, 84256-6 ####[facility] LABIA [id number] [place] [address] PRBC LEUKOREDUCEDon 05-08-20 ABO and Rh group Nom (Bld) Cross Match Result Compatible Unit Blood Type A Pos Unit Number [id number] Status Information Transfused Product ID Red Blood Cells Product Code [id number] Cross Match Result Compatible Unit Blood Type A Pos Unit Number [id number] Status Information Transfused Product ID Red Blood Cells Product Code [id number] Normal [facility] Comment on above: Performed By: #### H H #### [facility] [address] [place] [address] Dr. Benito To HEMOGLOBIN AND HEMATOCRITon 05-07-2022 Hematocrit (Bld) [Volume fraction] 24.6 % Critically low 42.0-54.0 [facility] Comment on above: Performed By: #### T NS, PRBC #### [facility] [address] [place] [address] Dr. Benito To Hemoglobin (Bld) [Mass/Vol] 7.6 g/dL Critically low 14.0-18.0 [facility] Comment on above: Performed By: #### T ZEHRA, PRBC #### [facility] [address] [address] [address] Benito To TYPE AND SCREENon 05-07-2022 TYPE AND SCREEN Negative Normal [facility] Comment on above: Performed By: #### T ZEHRA, PRBC #### [facility] [address] [address] [address] Benito To CBC W Auto Differential pane l (Bld)on 05-06-2022 Anisocytosis Ql (Bld) Present Normal [facility] Comment on above: Order Comment: Speci men Type: BLOOD SPECIMENOrdering Facility: [facility] Address: [address] [place] [address] Performed By: #### 5 7021-8 ####[facility] LABCLIA [id number] [address] LABCLIA [id number] [place] [address] [place] Basophils/100 WBC (Bld) 5.0 % Normal [facility] Comment on above: Order Comment: Speci men Type: BLOOD SPECIMENOrdering Facility: [facility] Address: [address] [place] [address] Performed By: #### 5 7021-8 ####[facility] LABCLIA [id number] [address] LABCLIA [id number] [place] [address] [place] Eosinophils (Bld) [#/Vol] 0.02 10*3/uL Normal <0.46 [facility] Comment on above: Order Comment: Speci men Type: BLOOD SPECIMENOrdering Facility: [facility] Address: [address] [place] [address] Performed By: #### 5 7021-8 ####[facility] LABCLIA [id number] [address] LABCLIA [id number] [place] [address] [place] Eosinophils/100 WBC (Bld) 1.0 % Normal [facility] Comment on above: Order Comment: Speci men Type: BLOOD SPECIMENOrdering Facility: [facility] Address: [address] [place] [address] Performed By: #### 5 7021-8 ####[facility] LABCLIA [id number] [address] LABCLIA [id number] [place] [address] [place] Erythrocyte distribution width (RBC) [Ratio] 24.7 % High 11.5-15.0 [facility] Comment on above: Order Comment: Speci men Type: BLOOD SPECIMENOrdering Facility: [facility] Address: [address] [place] [address] Performed By: #### 5 7021-8 ####[facility] LABCLIA [id number] [address] LABCLIA [id number] [place] [address] [place] Giant platelets LM Ql (Bld) Occasional Normal [facility] Comment on above: Order Comment: Speci men Type: BLOOD SPECIMENOrdering Facility: [facility] Address: [address] [place], [place] [address] Performed By: #### 5 7021-8 ####[facility] LABCLIA [id number] [address] LABCLIA [id number] [place] [address] [place] Hematocrit (Bld) [Volume fraction] 23.3 % Low 39.0-51.0 [facility] Comment on above: Order Comment: Speci men Type: BLOOD SPECIMENOrdering Facility: [facility] Address: [address] [place] [address] Performed By: #### 5 7021-8 ####[facility] LABCLIA [id number] [address] LABCLIA [id number] [place] [address] [place] Hemoglobin (Bld) [Mass/Vol] 7.4 g/dL Low 13.0-17.0 [facility] Comment on above: Order Comment: Speci men Type: BLOOD SPECIMENOrdering Facility: [facility] Address: [address] [place] [address] Performed By: #### 5 7021-8 ####[facility] LABCLIA [id number] [address] LABCLIA [id number] [place] [address] [place] Lymphocytes (Bld) [#/Vol] 1.05 10*3/uL Normal 1.00-4.00 [facility] Comment on above: Order Comment: Speci men Type: BLOOD SPECIMENOrdering Facility: [facility] Address: [address] [place] [address] Performed By: #### 5 7021-8 ####[facility] LABCLIA [id number] [address] LABCLIA [id number] [place] [address] [place] Lymphocytes/100 WBC (Bld) 53.0 % Normal [facility] Comment on above: Order Comment: Speci men Type: BLOOD SPECIMENOrdering Facility: [facility] Address: [address] [place] [address] Performed By: #### 5 7021-8 ####[facility] LABCLIA [id number] [place] [id number] LABCLIA [id number] [place] [address] [place] MCH (RBC) [Entitic mass] 33.2 pg Normal 26.0-34.0 [facility] Comment on above: Order Comment: Speci men Type: BLOOD SPECIMENOrdering Facility: [facility] Address: [address] [place] [address] Performed By: #### 5 7021-8 ####[facility] LABCLIA [id number] [address] LABCLIA [id number] [place] [address] [place] MCHC (RBC) [Mass/Vol] 31.8 g/dL Normal 30.5-36.0 [facility] Comment on above: Order Comment: Speci men Type: BLOOD SPECIMENOrdering Facility: [facility] Address: [address] [place], [place] [address] Performed By: #### 5 7021-8 ####[facility] LABCLIA [id number] [address] LABCLIA [id number] [place] [address] [place] MCV (RBC) [Entitic vol] 104.5 fL High 80.0-100.0 [facility] Comment on above: Order Comment: Speci men Type: BLOOD SPECIMENOrdering Facility: [facility] Address: [address] [place] [address] Performed By: #### 5 7021-8 ####[facility] LABCLIA [id number] [address] LABCLIA [id number] [place] [address] [place] MYELO% 1.0 % Normal [facility] Comment on above: Order Comment: Speci men Type: BLOOD SPECIMENOrdering Facility: [facility] Address: [address] [place] [address] Performed By: #### 5 7021-8 ####[facility] LABCLIA [id number] [address] LABCLIA [id number] [place] [address] [place] Neutrophils (Bld) [#/Vol] 0.40 10*3/uL Low 1.45-7.50 [facility] Comment on above: Order Comment: Speci men Type: BLOOD SPECIMENOrdering Facility: [facility] Address: [address] [place] [address] Performed By: #### 5 7021-8 ####[facility] LABCLIA [id number] [address] LABCLIA [id number] [place] [address] [place] Neutrophils/100 WBC (Bld) 20.0 % Normal [facility] Comment on above: Order Comment: Speci men Type: BLOOD SPECIMENOrdering Facility: [facility] Address: [address] [place] [address] Performed By: #### 5 7021-8 ####[facility] LABCLIA [id number] [address] LABCLIA [id number] [place] [address] [place] Nucleated RBC/100 WBC (Bld) [Ratio] 0.0 /100 WBC Normal [facility] Comment on above: Order Comment: Speci men Type: BLOOD SPECIMENOrdering Facility: [facility] Address: [address] [place] [address] Performed By: #### 5 7021-8 ####[facility] LABCLIA [id number] [place], [place] [address] LABCLIA [id number] [place] [address] [place] Ovalocytes LM Ql (Bld) Few Normal [facility] Comment on above: Order Comment: Speci men Type: BLOOD SPECIMENOrdering Facility: [facility] Address: [address] [place], [place] [address] Performed By: #### 5 7021-8 ####[facility] LABCLIA [id number] [address] LABCLIA [id number] [place] [address] [place] PLATELET ESTIMATE Decreased Normal [facility] Comment on above: Order Comment: Speci men Type: BLOOD SPECIMENOrdering Facility: [facility] Address: [address] [place] [address] Performed By: #### 5 7021-8 ####[facility] LABCLIA [id number] [place] [id number] LABCLIA [id number] [place] [address] [place] Platelet mean volume (Bld) [Entitic vol] Normal [facility] Comment on above: Order Comment: Speci men Type: BLOOD SPECIMENOrdering Facility: [facility] Address: [address] [place] [address] Result Comment: Unab le to Report. Performed By: #### 5 7021-8 ####[facility] LABCLIA [id number] [place] [address] LABCLIA [id number] [place] [address] [place] Platelets (Bld) [#/Vol] 65 10*3/uL Low 150-400 [facility] Comment on above: Order Comment: Speci men Type: BLOOD SPECIMENOrdering Facility: [facility] Address: [address] [place] [address] Result Comment: Fela le checked for clot Performed By: #### 5 7021-8 ####[facility] LABCLIA [id number] [address] LABCLIA [id number] [place] [address] [place] RBC (Bld) [#/Vol] 2.23 10*6/uL Low 4.20-6.00 [facility] Comment on above: Order Comment: Speci men Type: BLOOD SPECIMENOrdering Facility: [facility] Address: [address] [place] [address] Performed By: #### 5 7021-8 ####[facility] LABCLIA [id number] [address] LABCLIA [id number] [address] [place] RBC FRAGMENTS Few Abnormal None Seen [facility] Comment on above: Order Comment: Speci men Type: BLOOD SPECIMENOrdering Facility: [facility] Address: [address] [place] [address] Performed By: #### 5 7021-8 ####[facility] LABCLIA [id number] [address] LABCLIA [id number] [address] [place] RED CELL MORPH Reviewed: see result s of individual morphologies Normal [facility] Comment on above: Order Comment: Speci men Type: BLOOD SPECIMENOrdering Facility: [facility] Address: [address] [place] [address] Performed By: #### 5 7021-8 ####[facility] LABCLIA [id number] [address] LABCLIA [id number] [place] [address] [place] Variant lymphocytes/100 WBC (Bld) 0.0 % Normal [facility] Comment on above: Order Comment: Speci men Type: BLOOD SPECIMENOrdering Facility: [facility] Address: [address] [place] [address] Performed By: #### 5 7021-8 ####[facility] LABCLIA [id number] [address] LABCLIA [id number] [place] [address] [place] WAM - ABS BASO 0.10 k/uL Normal <0.11 [facility] Comment on above: Order Comment: Speci men Type: BLOOD SPECIMENOrdering Facility: [facility] Address: [address] [place] [address] Performed By: #### 5 7021-8 ####[facility] LABCLIA [id number] [address] LABCLIA [id number] [place] [address] [place] WAM - ABS MONO 0.40 k/uL Normal <0.87 [facility] Comment on above: Order Comment: Speci men Type: BLOOD SPECIMENOrdering Facility: [facility] Address: [address] [place] [address] Performed By: #### 5 7021-8 ####[facility] LABCLIA [id number] [address] LABCLIA [id number] [place] [address] [place] WAM - MONO% 20.0 % Normal [facility] Comment on above: Order Comment: Speci men Type: BLOOD SPECIMENOrdering Facility: [facility] Address: [address] [place], [place] [address] Performed By: #### 5 7021-8 ####[facility] LABCLIA [id number] [address] LABCLIA [id number] [place] [address] [place] WAM ABSOLUTE NRBC <0.01 Normal <0.01 [facility] Comment on above: Order Comment: Speci men Type: BLOOD SPECIMENOrdering Facility: [facility] Address: [address] [place] [address] Result Comment: This result was previously suppressed from the chart. Performed By: #### 5 7021-8 ####[facility] LABCLIA [id number] [address] LABCLIA [id number] [place] [address] [place] WBC (Bld) [#/Vol] 1.98 10*3/uL Low 3.70-11.00 [facility] Comment on above: Order Comment: Speci men Type: BLOOD SPECIMENOrdering Facility: [facility] Address: [address] [place] [address] Performed By: #### 5 7021-8 ####[facility] LABCLIA [id number] [address] LABCLIA [id number] [place] [address] [place] WBC Left Shift Ql (Bld) Present Normal [facility] Comment on above: Order Comment: Speci men Type: BLOOD SPECIMENOrdering Facility: [facility] Address: [address] [place], [place] [address] Performed By: #### 5 7021-8 ####[facility] LABCLIA [id number] [address] LABCLIA [id number] [place] [address] [place] CNOVSPon 05-06-2022 CNOVSP Normal [facility] CNPNon 05-06-2022 CNPN Normal [facility] Comprehensive metabolic 2000 panelon 05-06-2022 Albumin [Mass/Vol] 3.9 g/dL Normal 3.9-4.9 [facility] Comment on above: Order Comment: Speci men Type: BLOOD SPECIMENOrdering Facility: [facility] Address: [address] [address] Performed By: #### 2 4323-8, 2531-0 ####[facility] LABCLIA [id number] [place] [address] ALP [Catalytic activity/Vol] 87 U/L Normal 38-113 [facility] Comment on above: Order Comment: Speci men Type: BLOOD SPECIMENOrdering Facility: [facility] Address: [address] [place] [address] Performed By: #### 2 4328, 2531-0 ####[facility] LABCLIA [id number] [place] [address] ALT [Catalytic activity/Vol] 25 U/L Normal 10-54 [facility] Comment on above: Order Comment: Speci men Type: BLOOD SPECIMENOrdering Facility: [facility] Address: [address] [place] [address] Performed By: #### 2 43238, 2531-0 ####[facility] LABCLIA [id number] [place] [address] Anion gap [Moles/Vol] 12 mmol/L Normal 9-18 [facility] Comment on above: Order Comment: Speci men Type: BLOOD SPECIMENOrdering Facility: [facility] Address: [address] [place] [address] Performed By: #### 2 4323-8, 2532-0 ####[facility] LABCLIA [id number] [place] [address] AST [Catalytic activity/Vol] 13 U/L Low 14-40 [facility] Comment on above: Order Comment: Speci men Type: BLOOD SPECIMENOrdering Facility: [facility] Address: [address] [place] [address] Performed By: #### 2 4323-8, 2531-0 ####[facility] LABCLIA [id number] [place] [address] Bilirubin [Mass/Vol] 0.7 mg/dL Normal 0.2-1.3 [facility] Comment on above: Order Comment: Speci men Type: BLOOD SPECIMENOrdering Facility: [facility] Address: [address] [place] [address] Performed By: #### 2 4323-8, 2531-0 ####[facility] LABIA [id number] [place] [address] Calcium [Mass/Vol] 8.5 mg/dL Normal 8.5-10.2 [facility] Comment on above: Order Comment: Speci men Type: BLOOD SPECIMENOrdering Facility: [facility] Address: [address] [place] [address] Performed By: #### 2 4323-8, 2531-0 ####[facility] LABIA [id number] [place] [address] Chloride [Moles/Vol] 102 mmol/L Normal 97-105 [facility] Comment on above: Order Comment: Speci men Type: BLOOD SPECIMENOrdering Facility: [facility] Address: [address] [place], [place] [address] Performed By: #### 2 4323-8, 2531-0 ####[facility] LABIA [id number] [place] [address] CO2 [Moles/Vol] 27 mmol/L Normal 22-30 [facility] Comment on above: Order Comment: Speci men Type: BLOOD SPECIMENOrdering Facility: [facility] Address: [address] [place], [place] [address] [address] Performed By: #### 2 4323-8, 2532-0 ####[facility] LABIA [id number] [place] [address] Creatinine [Mass/Vol] 1.97 mg/dL High 0.73-1.22 [facility] Comment on above: Order Comment: Speci men Type: BLOOD SPECIMENOrdering Facility: [facility] Address: [address] [place], [place] [address] Performed By: #### 2 4323-8, 2532-0 ####[facility] LABIA [id number] [place] [address] ESTIMATED GLOMERULAR FILTRATION RATE 33 mL/min/1.73m??? Low >=60 [facility] Comment on above: Order Comment: Speci men Type: BLOOD SPECIMENOrdering Facility: [facility] Address: [address] [place], [place] [address] Result Comment: Faye mated Glomerular Filtration Rate [...] GFR. Performed By: #### 2 4323-8, 2531-0 ####[facility] LABIA [id number] [place] [address] Glucose [Mass/Vol] 132 mg/dL High 74-99 [facility] Comment on above: Order Comment: Speci men Type: BLOOD SPECIMENOrdering Facility: [facility] Address: [address] Result Comment: The [place] [employer] (ADA) provides guidance for cutoff [...] Standards of Medical Care in Diabetes 2016, [place] [employer]. Diabetes Care. 2016.39(Suppl 1). Performed By: #### 2 4323-8, 2531-0 ####[facility] LABCLIA [id number] [place] [address] Potassium [Moles/Vol] 3.9 mmol/L Normal 3.7-5.1 [facility] Comment on above: Order Comment: Speci men Type: BLOOD SPECIMENOrdering Facility: [facility] Address: [address] [place] [address] Performed By: #### 2 4328, 0 ####[facility] LABCLIA [id number] [place] [address] Protein [Mass/Vol] 6.1 g/dL Low 6.3-8.0 [facility] Comment on above: Order Comment: Speci men Type: BLOOD SPECIMENOrdering Facility: [facility] Address: [address] [place] [address] Performed By: #### 2 4328, 0 ####[facility] LABCLIA [id number] [place] [address] Sodium [Moles/Vol] 141 mmol/L Normal 136-144 [facility] Comment on above: Order Comment: Speci men Type: BLOOD SPECIMENOrdering Facility: [facility] Address: [address] [place], [place] [address] Performed By: #### 2 4328, 2531-0 ####[facility] LABCLIA [id number] [place] [address] Urea nitrogen [Mass/Vol] 27 mg/dL High 9-24 [facility] Comment on above: Order Comment: Speci men Type: BLOOD SPECIMENOrdering Facility: [facility] Address: [address] [place], [place] [address] Performed By: #### 2 4323-8, 2531-0 ####[facility] LABCLIA [id number] [place] [address] LDH SerPl-cCncon 05-06-2022 LDH [Catalytic activity/Vol] 222 U/L Normal 135-225 [facility] Comment on above: Order Comment: Speci men Type: BLOOD SPECIMENOrdering Facility: [facility] Address: [address] [place], [place] [address] Performed By: #### 2 4323-8, 2531-0 ####[facility] LABCLIA [id number] [place] [id number] CBC W Auto Differential pane l (Bld)on 04-29-2022 Anisocytosis Ql (Bld) Present Normal [facility] Comment on above: Order Comment: Speci men Type: BLOOD SPECIMENOrdering Facility: [facility] Address: [address] [place] [address] Performed By: #### 5 7021-8 ####[facility] LABCLIA [id number] [place] [address] LABCLIA [id number] [place] [address] [place] Basophils/100 WBC (Bld) 0.0 % Normal [facility] [facility] Comment on above: Order Comment: Speci men Type: BLOOD SPECIMENOrdering Facility: [facility] Address: [address] [place], [place] [address] Performed By: #### 5 7021-8 ####[facility] LABCLIA [id number] [place] [id number] LABCLIA [id number] [place] [address] [place] Dacrocytes LM Ql (Bld) Few Normal [facility] Comment on above: Order Comment: Speci men Type: BLOOD SPECIMENOrdering Facility: [facility] Address: [address] [place] [address] Performed By: #### 5 7021-8 ####[facility] LABCLIA [id number] [address] LABCLIA [id number] [address] [place] Differential cell count method Nom (Bld) Manual Normal [facility] Comment on above: Order Comment: Speci men Type: BLOOD SPECIMENOrdering Facility: [facility] Address: [address] [place] [address] Performed By: #### 5 7021-8 ####[facility] LABCLIA [id number] [address] LABCLIA [id number] [place] [address] [place] Eosinophils (Bld) [#/Vol] 0.02 10*3/uL Normal <0.46 [facility] Comment on above: Order Comment: Speci men Type: BLOOD SPECIMENOrdering Facility: [facility] Address: [address] [place] [address] Performed By: #### 5 7021-8 ####[facility] LABCLIA [id number] [address] LABCLIA [id number] [place] [address] [place] Eosinophils/100 WBC (Bld) 1.0 % Normal [facility] Comment on above: Order Comment: Speci men Type: BLOOD SPECIMENOrdering Facility: [facility] Address: [address] [place] [address] Performed By: #### 5 7021-8 ####[facility] LABCLIA [id number] [place] [id number] LABCLIA [id number] [place] [address] [place] Erythrocyte distribution width (RBC) [Ratio] 24.4 % High 11.5-15.0 [facility] Comment on above: Order Comment: Speci men Type: BLOOD SPECIMENOrdering Facility: [facility] Address: [address] [place] [address] Performed By: #### 5 7021-8 ####[facility] LABCLIA [id number] [address] LABCLIA [id number] [place] [address] [place] Hematocrit (Bld) [Volume fraction] 26.7 % Low 39.0-51.0 [facility] Comment on above: Order Comment: Speci men Type: BLOOD SPECIMENOrdering Facility: [facility] Address: [address] [place], [place] [address] Performed By: #### 5 7021-8 ####[facility] LABCLIA [id number] [address] LABCLIA [id number] [place] [address] [place] Hemoglobin (Bld) [Mass/Vol] 8.4 g/dL Low 13.0-17.0 [facility] Comment on above: Order Comment: Speci men Type: BLOOD SPECIMENOrdering Facility: [facility] Address: [address] [place], [place] [address] Performed By: #### 5 7021-8 ####[facility] LABCLIA [id number] [address] LABCLIA [id number] [place] [address] [place] Lymphocytes (Bld) [#/Vol] 0.79 10*3/uL Low 1.00-4.00 [facility] Comment on above: Order Comment: Speci men Type: BLOOD SPECIMENOrdering Facility: [facility] Address: [address] [place] [address] Performed By: #### 5 7021-8 ####[facility] LABCLIA [id number] [address] LABCLIA [id number] [place] [address] [place] Lymphocytes/100 WBC (Bld) 43.0 % Normal [facility] Comment on above: Order Comment: Speci men Type: BLOOD SPECIMENOrdering Facility: [facility] Address: [address] [place] [address] Performed By: #### 5 7021-8 ####[facility] LABCLIA [id number] [address] LABCLIA [id number] [place] [address] [place] MCH (RBC) [Entitic mass] 32.7 pg Normal 26.0-34.0 [facility] Comment on above: Order Comment: Speci men Type: BLOOD SPECIMENOrdering Facility: [facility] Address: [address] [place] [address] Performed By: #### 5 7021-8 ####[facility] LABCLIA [id number] [address] LABCLIA [id number] [place] [address] [place] MCHC (RBC) [Mass/Vol] 31.5 g/dL Normal 30.5-36.0 [facility] Comment on above: Order Comment: Speci men Type: BLOOD SPECIMENOrdering Facility: [facility] Address: [address] [place] [address] Performed By: #### 5 7021-8 ####[facility] LABCLIA [id number] [address] LABCLIA [id number] [place] [address] [place] MCV (RBC) [Entitic vol] 103.9 fL High 80.0-100.0 [facility] Comment on above: Order Comment: Speci men Type: BLOOD SPECIMENOrdering Facility: [facility] Address: [address] [place], [place] [address] Performed By: #### 5 7021-8 ####[facility] LABCLIA [id number] [address] LABCLIA [id number] [place] [address] [place] MYELO% 2.0 % Normal [facility] Comment on above: Order Comment: Speci men Type: BLOOD SPECIMENOrdering Facility: [facility] Address: [address] [place], [place] [address] Performed By: #### 5 7021-8 ####[facility] LABCLIA [id number] [address] LABCLIA [id number] [place] [address] [place] Neutrophils (Bld) [#/Vol] 0.66 10*3/uL Low 1.45-7.50 [facility] Comment on above: Order Comment: Speci men Type: BLOOD SPECIMENOrdering Facility: [facility] Address: [address] [place] [address] Performed By: #### 5 7021-8 ####[facility] LABCLIA [id number] [address] LABCLIA [id number] [place] [address] [place] Neutrophils/100 WBC (Bld) 36.0 % Normal [facility] Comment on above: Order Comment: Speci men Type: BLOOD SPECIMENOrdering Facility: [facility] Address: [address] [place] [address] Performed By: #### 5 7021-8 ####[facility] LABCLIA [id number] [address] LABCLIA [id number] [place] [address] [place] Nucleated RBC/100 WBC (Bld) [Ratio] 0.0 /100 WBC Normal [facility] Comment on above: Order Comment: Speci men Type: BLOOD SPECIMENOrdering Facility: [facility] Address: [address] [place] [address] Performed By: #### 5 7021-8 ####[facility] LABCLIA [id number] [address] LABCLIA [id number] [place] [address] [place] Ovalocytes LM Ql (Bld) Few Normal [facility] Comment on above: Order Comment: Speci men Type: BLOOD SPECIMENOrdering Facility: [facility] Address: [address] [place] [address] Performed By: #### 5 7021-8 ####[facility] LABCLIA [id number] [address] LABCLIA [id number] [place] [address] [place] PLATELET ESTIMATE Decreased Normal [facility] Comment on above: Order Comment: Speci men Type: BLOOD SPECIMENOrdering Facility: [facility] Address: [address] [place] [address] Performed By: #### 5 7021-8 ####[facility] LABCLIA [id number] [address] LABCLIA [id number] [place] [address] [place] Platelet mean volume (Bld) [Entitic vol] 14.1 fL High 9.0-12.7 [facility] Comment on above: Order Comment: Speci men Type: BLOOD SPECIMENOrdering Facility: [facility] Address: [address] [place] [address] Performed By: #### 5 7021-8 ####[facility] LABCLIA [id number] [address] LABCLIA [id number] [place] [address] [place] Platelets (Bld) [#/Vol] 75 10*3/uL Low 150-400 [facility] Comment on above: Order Comment: Speci men Type: BLOOD SPECIMENOrdering Facility: [facility] Address: [address] [place], [place] [address] Result Comment: Resu lts checked and verified. No clot detected. Sample checked for clot Performed By: #### 5 7021-8 ####[facility] LABCLIA [id number] [address] LABCLIA [id number] [place] [address] [place] RBC (Bld) [#/Vol] 2.57 10*6/uL Low 4.20-6.00 [facility] Comment on above: Order Comment: Speci men Type: BLOOD SPECIMENOrdering Facility: [facility] Address: [address] [place], [place] [address] Performed By: #### 5 7021-8 ####[facility] LABIA [id number] [address] LABCLIA [id number] [place] [address] [place] RBC FRAGMENTS Few Abnormal None Seen [facility] Comment on above: Order Comment: Speci men Type: BLOOD SPECIMENOrdering Facility: [facility] Address: [address] [place] [address] Performed By: #### 5 7021-8 ####[facility] LABCLIA [id number] [address] LABCLIA [id number] [place] [address] [place] RED CELL MORPH Reviewed: see result s of individual morphologies Normal [facility] Comment on above: Order Comment: Speci men Type: BLOOD SPECIMENOrdering Facility: [facility] Address: [address] [place] [address] Performed By: #### 5 7021-8 ####[facility] LABCLIA [id number] [address] LABCLIA [id number] [address] [place] WAM - ABS BASO 0.00 k/uL Normal <0.11 [facility] Comment on above: Order Comment: Speci men Type: BLOOD SPECIMENOrdering Facility: [facility] Address: [address] [place] [address] Performed By: #### 5 7021-8 ####[facility] LABCLIA [id number] [address] LABCLIA [id number] [place] [address] [place] WAM - ABS MONO 0.33 k/uL Normal <0.87 [facility] Comment on above: Order Comment: Speci men Type: BLOOD SPECIMENOrdering Facility: [facility] Address: [address] [place] [address] Performed By: #### 5 7021-8 ####[facility] LABCLIA [id number] [address] LABCLIA [id number] [place] [address] [place] WAM - MONO% 18.0 % Normal [facility] Comment on above: Order Comment: Speci men Type: BLOOD SPECIMENOrdering Facility: [facility] Address: [address] [place] [address] Performed By: #### 5 7021-8 ####[facility] LABCLIA [id number] [address] LABCLIA [id number] [place] [address] [place] WAM ABSOLUTE NRBC <0.01 Normal <0.01 [facility] Comment on above: Order Comment: Speci men Type: BLOOD SPECIMENOrdering Facility: [facility] Address: [address] [place], [place] [address] Performed By: #### 5 7021-8 ####[facility] LABCLIA [id number] [address] LABCLIA [id number] [place] [address] [place] WBC (Bld) [#/Vol] 1.84 10*3/uL Low 3.70-11.00 [facility] Comment on above: Order Comment: Speci men Type: BLOOD SPECIMENOrdering Facility: [facility] Address: [address] [place] [address] Performed By: #### 5 7021-8 ####[facility] LABCLIA [id number] [address] LABCLIA [id number] [place] [address] [place] WBC Left Shift Ql (Bld) Present Normal [facility] Comment on above: Order Comment: Speci men Type: BLOOD SPECIMENOrdering Facility: [facility] Address: [address] [place], [place] [address] Performed By: #### 5 7021-8 ####[facility] LABCLIA [id number] [place], [place] [address]ZDLAVBJCSMER[facility] LABCLIA [id number] [facility] HOSPITALKayla [id number] [place] [address] [place] CNOVSPon 04-29-2022 CNOVSP Normal [facility] CNPNon 04-29-2022 CNPN Normal [facility] Comprehensive metabolic 2000 panelon 04-29-2022 Albumin [Mass/Vol] 4.1 g/dL Normal 3.9-4.9 [facility] Comment on above: Order Comment: Speci men Type: BLOOD SPECIMENOrdering Facility: [facility] Address: [address] [place] [address] Performed By: #### 2 4323-8 ####[facility] LABCLIA [id number] [place] [address] ALP [Catalytic activity/Vol] 86 U/L Normal 38-113 [facility] Comment on above: Order Comment: Speci men Type: BLOOD SPECIMENOrdering Facility: [facility] Address: [address] [place] [address] Performed By: #### 2 4323-8 ####[facility] LABCLIA [id number] [place] [address] ALT [Catalytic activity/Vol] 31 U/L Normal 10-54 [facility] Comment on above: Order Comment: Speci men Type: BLOOD SPECIMENOrdering Facility: [facility] Address: [address] [place], [place] [address] Performed By: #### 2 4323-8 ####[facility] LABIA [id number] [place] [address] Anion gap [Moles/Vol] 10 mmol/L Normal 9-18 [facility] Comment on above: Order Comment: Speci men Type: BLOOD SPECIMENOrdering Facility: [facility] Address: [address] [place] [address] Performed By: #### 2 4323-8 ####[facility] LABCLIA [id number] [place] [address] AST [Catalytic activity/Vol] 15 U/L Normal 14-40 [facility] Comment on above: Order Comment: Speci men Type: BLOOD SPECIMENOrdering Facility: [facility] Address: [address] [place] [address] Performed By: #### 2 4323-8 ####[facility] LABCLIA [id number] [place] [address] Bilirubin [Mass/Vol] 0.9 mg/dL Normal 0.2-1.3 [facility] Comment on above: Order Comment: Speci men Type: BLOOD SPECIMENOrdering Facility: [facility] Address: [address] [place] [address] Performed By: #### 2 4323-8 ####[facility] LABCLIA [id number] [place] [address] Calcium [Mass/Vol] 8.9 mg/dL Normal 8.5-10.2 [facility] Comment on above: Order Comment: Speci men Type: BLOOD SPECIMENOrdering Facility: [facility] Address: [address] [place] [address] Performed By: #### 2 4323-8 ####[facility] LABCLIA [id number] [place] [address] Chloride [Moles/Vol] 104 mmol/L Normal 97-105 [facility] Comment on above: Order Comment: Speci men Type: BLOOD SPECIMENOrdering Facility: [facility] Address: [address] [place] [address] Performed By: #### 2 4323-8 ####[facility] LABCLIA [id number] [place] [address] CO2 [Moles/Vol] 29 mmol/L Normal 22-30 [facility] Comment on above: Order Comment: Speci men Type: BLOOD SPECIMENOrdering Facility: [facility] Address: [address] [place] [address] Performed By: #### 2 4323-8 ####[facility] LABCLIA [id number] [place] [address] Creatinine [Mass/Vol] 1.76 mg/dL High 0.73-1.22 [facility] Comment on above: Order Comment: Speci men Type: BLOOD SPECIMENOrdering Facility: [facility] Address: [address] [place] [address] Performed By: #### 2 4323-8 ####[facility] LABCLIA [id number] [place] [address] ESTIMATED GLOMERULAR FILTRATION RATE 38 mL/min/1.73m??? Low >=60 [facility] Comment on above: Order Comment: Speci men Type: BLOOD SPECIMENOrdering Facility: [facility] Address: [address] [place] [address] Result Comment: Faye mated Glomerular Filtration Rate [...] actual GFR. Performed By: #### 2 4323-8 ####[facility] LABCLIA [id number] [place] [address] Glucose [Mass/Vol] 177 mg/dL High 74-99 [facility] Comment on above: Order Comment: Speci men Type: BLOOD SPECIMENOrdering Facility: [facility] Address: [address] [place] [address] Result Comment: The [place] [employer] (ADA) provides guidance for cutoff [...] Standards of Medical Care in Diabetes 2016, [place] [employer]. Diabetes Care. 2016.39(Suppl 1). Performed By: #### 2 4323-8 ####[facility] LABCLIA [id number] [place] [address] Potassium [Moles/Vol] 3.9 mmol/L Normal 3.7-5.1 [facility] Comment on above: Order Comment: Speci men Type: BLOOD SPECIMENOrdering Facility: [facility] Address: [address] [place] [address] Performed By: #### 2 4323-8 ####[facility] LABCLIA [id number] [place] [address] Protein [Mass/Vol] 6.1 g/dL Low 6.3-8.0 [facility] Comment on above: Order Comment: Speci men Type: BLOOD SPECIMENOrdering Facility: [facility] Address: [address] [place] [address] Performed By: #### 2 4323-8 ####[facility] LABCLIA [id number] [place] [address] Sodium [Moles/Vol] 143 mmol/L Normal 136-144 [facility] Comment on above: Order Comment: Speci men Type: BLOOD SPECIMENOrdering Facility: [facility] Address: [address] [place] [address] Performed By: #### 2 4323-8 ####[facility] LABCLIA [id number] [place] [address] Urea nitrogen [Mass/Vol] 22 mg/dL Normal 9-24 [facility] Comment on above: Order Comment: Speci men Type: BLOOD SPECIMENOrdering Facility: [facility] Address: [address] [place] [address] Performed By: #### 2 4323-8 ####[facility] LABCLIA [id number] [place] [address] LDH SerPl-cCncon 04-29-2022 LDH [Catalytic activity/Vol] 212 U/L Normal 135-225 [facility] Comment on above: Order Comment: Speci men Type: BLOOD SPECIMENOrdering Facility: [facility] Address: [address] [place] [address] Performed By: #### 2 532-0 ####[facility] LABCLIA [id number] [place] [address] FLOW CYTOMETRY BONE MARROW R EFLEXon 04-27-2022 Case Report Flow Cytometry Case: [id number] Authorizing Provider: Asher Hummel MD Collected: 04/25/2022 08:35 AM Ordering Location: Hematology/Oncology Received: 04/26/2022 08:07 AM Pathologist: Josie Robison MD Specimen: Bone Marrow [facility] Gross Description A. Bone Marrow RECEIVED 1 ML BONE MARROW IN HEPARIN [facility] Interpretation Specimen type: Bone marrow aspirate Viability: [...] developed and its performance characteristics determined by [facility] [place] ([facility]ENTERBPLTX). It has not been cleared or approved by the FDA. [facility] is regulated under CLIA as qualified to perform high-complexity testing. This test is used for clinical purposes. It should not be regarded as investigational or for research purposes. DSB/MS 04/26/2022 [facility] CBC W Auto Differential pane l (Bld)on 04-26-2022 Abs Baso 0.04 k/uL <0.11 k/uL [facility] Abs Meeker 0.36 k/uL <0.87 k/uL [facility] Absolute nRBC <0.01 k/uL [facility] Anisocytosis Ql (Bld) Present [facility] Basophils/100 WBC (Bld) 1.8 % [facility] Dacrocytes LM Ql (Bld) Few [facility] Differential cell count method Nom (Bld) Manual [facility] Eosinophils (Bld) [#/Vol] 0.06 10*3/uL <0.46 k/uL [facility] Eosinophils/100 WBC (Bld) 2.7 % [facility] Erythrocyte distribution width (RBC) [Ratio] 25.2 % High 11.5 - 15.0 % [facility] Giant platelets LM Ql (Bld) Occasional [facility] Hematocrit (Bld) [Volume fraction] 28.2 % Low 39.0 - 51.0 % [facility] Hemoglobin (Bld) [Mass/Vol] 9.0 g/dL Low 13.0 - 17.0 g/dL [facility] Lymphocytes (Bld) [#/Vol] 0.82 10*3/uL Low 1.00 - 4.00 k/uL [facility] Lymphocytes/100 WBC (Bld) 34.8 % [facility] MCH (RBC) [Entitic mass] 32.0 pg 26.0 - 34.0 pg [facility] MCHC (RBC) [Mass/Vol] 31.9 g/dL 30.5 - 36.0 g/dL [facility] MCV (RBC) [Entitic vol] 100.4 fL High 80.0 - 100.0 fL [facility] Monocytes/100 WBC (Bld) 15.2 % [facility] Neutrophils (Bld) [#/Vol] 1.07 10*3/uL Low 1.45 - 7.50 k/uL [facility] Neutrophils/100 WBC (Bld) 45.5 % [facility] Nucleated RBC/100 WBC (Bld) [Ratio] 0.0 /100 WBC [facility] Ovalocytes LM Ql (Bld) Few [facility] Platelet Estimate Decreased [facility] Platelet mean volume (Bld) [Entitic vol] [facility] Platelets (Bld) [#/Vol] 77 10*3/uL Low 150 - 400 k/uL [facility] Polychromasia LM Ql (Bld) Slight [facility] RBC (Bld) [#/Vol] 2.81 10*6/uL Low 4.20 - 6.00 m/uL [facility] RBC Fragments Few Abnormal None Seen [facility] Red Cell Morph Reviewed: see result s of individual morphologies [facility] Variant lymphocytes/100 WBC (Bld) 0.0 % [facility] WBC (Bld) [#/Vol] 2.35 10*3/uL Low 3.70 - 11.00 k/u L [facility] FLOW CYTOMETRY BONE MARROW H OLD (BMHOLD)on 04-26-2022 Flow Cytometry Order Status See Results in chart under F case ID [facility] BONE MARROW ANALYSISon 04-25 ADDENDUM 1: Normal [facility] Comment on above: Order Comment: Speci men Type: BONE MARROW SPECIMENOrdering Facility: [facility] Address: [address] [place] [id number] Result Comment: The Hematologic Neoplasm next generation sequencing panel was performed on this specimen and showed the following variant(s) of strong or potential clinical significance:TET2p.?, [id number], c.4182+1G>AVAF: 44.5%[id number].P7408A, [id number], [id number].[id number]>CVAF: 40%ZRSR2p.R30Vfs*8, [id number], c.88delCVAF: 91.1%And the following variant(s) of uncertain significance:[id number]: c.214C>TVAF: 100%Please refer to the Scanned Documents tab in EPIC to view the complete report. There is no change in the diagnosis based on these results.Addendum electronically signed by Josie Robison MD on 06/06/2022 at 3:20 PM Performed By: #### B MRT ####[facility] LABCLIA [id number] [address] CASE REPORT Normal [facility] Comment on above: Order Comment: Davi avendaño Type: BONE MARROW SPECIMENOrdering Facility: [facility] Address: [address] [place] [address] Result Comment: Bone Marrow Pathology Report Case: [id number] Provider: Asher Hummel MD Collected: 04/25/2022 08:35 AMOrdering Location: Hematology/Oncology Received: 04/25/2022 09:22 AMPathologist: JAK Escobarpecimens: A) - BONE MARROW ASPIRATE RIGHT POSTERIOR ILIAC CREST B) - BONE MARROW BIOPSY RIGHT POSTERIOR ILIAC CREST C) - BONE MARROW CLOT RIGHT POSTERIOR ILIAC CREST D) - Peripheral blood smear Performed By: #### B MRT ####[facility] LABIA [id number] [address] DIAGNOSIS COMMENT Normal [facility] Comment on above: Order Comment: Davi avendaño Type: BONE MARROW SPECIMENOrdering Facility: 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 The morphology of the current sample is consistent with persistent disease.Laboratory Developed Test (LDT) Disclaimer:Performance characteristics of immunohistochemical, immunofluorescent and chromogenic in-situ hybridization tests have been determined by the performing laboratory within [facility]???s [facility] [place] ([facility], [facility], [facility] or [place]) in a manner consistent with CLIA requirements. One or more of these tests have not been cleared or approved by the FDA. [facility] is regulated under CLIA as qualified to perform high-complexity testing. These tests are used for clinical purposes. They should not be regarded as investigational or for research. Positive and negative controls stain appropriately. Performed By: #### B MRT ####[facility] LABCLIA [id number] [address] FINAL DIAGNOSIS Normal [facility] Comment on above: Order Comment: Davi avendaño Type: BONE MARROW SPECIMENOrdering Facility: [facility] Address: [address] [place] [address] Result Comment: A-C. 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 Peripheral blood smear:- Normocytic anemia. Leukopenia. Thrombocytopenia. Performed By: #### B MRT ####[facility] LABCLIA [id number] [address] FINAL PERFORMING LAB Normal [facility] Comment on above: Order Comment: Davi avendaoñ Type: BONE MARROW SPECIMENOrdering Facility: [facility] Address: [address] [address] Result Comment: Diag nostic interpretation performed at [facility], [address] [address] CLIA# [id number] Director: Candido Pierre M.D. Performed By: #### B MRT ####[facility] LABCLIA [id number] [address] GROSS DESCRIPTION Normal [facility] Comment on above: Order Comment: Davi avendaño Type: BONE MARROW SPECIMENOrdering Facility: [facility] Address: [address] [place] [address] Result Comment: A. B ONE MARROW ASPIRATE [...] Submitted for light microscopy.Gross examination performed at [facility], [address] [place], [place] [address]SDX 04/25/2022 7:59 PM Performed By: #### B MRT ####[facility] LABCLIA [id number] [address] OF [place] MICROSCOPIC DESCRIPTION Normal [facility] Comment on above: Order Comment: Speci men Type: BONE MARROW SPECIMENOrdering Facility: [facility] Address: [address] [place] [address] Result Comment: JOO PHERAL BLOOD:CBC (04/25/22) Diff (by report)WBC 2.35 k/uL Neut% 45.5 %Hemoglobin 9.0 g/dL Lymph% 34.8 %MCV 100.4 fL Meeker% 15.2 %RDW-CV 25.2 % Eosin% 2.7 %Platelet [...] coat stored Performed By: #### B MRT ####[facility] LABCLIA [id number] [address] STATES OF [facility] BONE MARROW CHROMOSOME ANALo n 04-25-2022 CHROMOSOME BM Normal [facility] Comment on above: Order Comment: Speci men Type: BONE MARROW SPECIMENOrdering Facility: [facility] Address: [address] [place] [address] Result Comment: Lian ramirez Accession Number: [id number]: Asher HummelPathologist: Karen Pathology No: [id number] diagnosis: Myelodysplastic syndromeSpecimen Type: Bone marrowNumber of [...] reviewed by Naomi Sena, PhD, FACMGPerformed by [facility]ology and Laboratory Medicine InstituteDivision of Molecular PathologyCytogenetics Lab, [id number] [place], [place] [address]Phone: Toll free: Performed By: #### C [facility] ####CLARITY NILDA LIMSCLIA [id number] [place] [address] [place] CBC W Auto Differential pane l (Bld)on 04-25-2022 Anisocytosis Ql (Bld) Present Normal [facility] Comment on above: Order Comment: Speci men Type: BLOOD SPECIMENOrdering Facility: [facility] Address: [address] [place] [address] Performed By: #### 5 7021-8 ####[facility] LABCLIA [id number] [address] LABCLIA [id number] [place] [address] [place] Basophils/100 WBC (Bld) 1.8 % Normal [facility] Comment on above: Order Comment: Speci men Type: BLOOD SPECIMENOrdering Facility: [facility] Address: [address] [place] [address] Performed By: #### 5 7021-8 ####[facility] LABCLIA [id number] [address] LABCLIA [id number] [place] [address] [place] Dacrocytes LM Ql (Bld) Few Normal [facility] Comment on above: Order Comment: Speci men Type: BLOOD SPECIMENOrdering Facility: [facility] Address: [address] [place] [address] Performed By: #### 5 7021-8 ####[facility] LABCLIA [id number] [address] LABCLIA [id number] [place] [address] [place] Differential cell count method Nom (Bld) Manual Normal [facility] Comment on above: Order Comment: Speci men Type: BLOOD SPECIMENOrdering Facility: [facility] Address: [address] [place] [address] Performed By: #### 5 7021-8 ####[facility] LABCLIA [id number] [address] LABCLIA [id number] [place] [address] [place] Eosinophils (Bld) [#/Vol] 0.06 10*3/uL Normal <0.46 [facility] Comment on above: Order Comment: Speci men Type: BLOOD SPECIMENOrdering Facility: [facility] Address: [address] [place] [address] Performed By: #### 5 7021-8 ####[facility] LABCLIA [id number] [address] LABCLIA [id number] [place] [address] [place] Eosinophils/100 WBC (Bld) 2.7 % Normal [facility] Comment on above: Order Comment: Speci men Type: BLOOD SPECIMENOrdering Facility: [facility] Address: [address] [place] [address] Performed By: #### 5 7021-8 ####[facility] LABCLIA [id number] [address] LABCLIA [id number] [place] [address] [place] Erythrocyte distribution width (RBC) [Ratio] 25.2 % High 11.5-15.0 [facility] Comment on above: Order Comment: Speci men Type: BLOOD SPECIMENOrdering Facility: [facility] Address: [address] [place], [place] [address] Performed By: #### 5 7021-8 ####[facility] LABCLIA [id number] [address] LABCLIA [id number] [place] [address] [place] Giant platelets LM Ql (Bld) Occasional Normal [facility] Comment on above: Order Comment: Speci men Type: BLOOD SPECIMENOrdering Facility: [facility] Address: [address] [place] [address] Performed By: #### 5 7021-8 ####[facility] LABCLIA [id number] [address] LABCLIA [id number] [place] [address] [place] Hematocrit (Bld) [Volume fraction] 28.2 % Low 39.0-51.0 [facility] Comment on above: Order Comment: Speci men Type: BLOOD SPECIMENOrdering Facility: [facility] Address: [address] [place] [address] Performed By: #### 5 7021-8 ####[facility] LABCLIA [id number] [address] LABCLIA [id number] [place] [address] [place] Hemoglobin (Bld) [Mass/Vol] 9.0 g/dL Low 13.0-17.0 [facility] Comment on above: Order Comment: Speci men Type: BLOOD SPECIMENOrdering Facility: [facility] Address: [address] [place] [address] Performed By: #### 5 7021-8 ####[facility] LABCLIA [id number] [address] LABCLIA [id number] [place] [address] [place] Lymphocytes (Bld) [#/Vol] 0.82 10*3/uL Low 1.00-4.00 [facility] Comment on above: Order Comment: Speci men Type: BLOOD SPECIMENOrdering Facility: [facility] Address: [address] [place] [address] Performed By: #### 5 7021-8 ####[facility] LABCLIA [id number] [address] LABCLIA [id number] [place] [address] [place] Lymphocytes/100 WBC (Bld) 34.8 % Normal [facility] Comment on above: Order Comment: Speci men Type: BLOOD SPECIMENOrdering Facility: [facility] Address: [address] [place] [address] Performed By: #### 5 7021-8 ####[facility] LABCLIA [id number] [address] LABCLIA [id number] [place] [address] [place] MCH (RBC) [Entitic mass] 32.0 pg Normal 26.0-34.0 [facility] Comment on above: Order Comment: Speci men Type: BLOOD SPECIMENOrdering Facility: [facility] Address: [address] [place] [address] Performed By: #### 5 7021-8 ####[facility] LABCLIA [id number] [address] LABCLIA [id number] [place] [address] [place] MCHC (RBC) [Mass/Vol] 31.9 g/dL Normal 30.5-36.0 [facility] Comment on above: Order Comment: Speci men Type: BLOOD SPECIMENOrdering Facility: [facility] Address: [address] [place] [address] Performed By: #### 5 7021-8 ####[facility] LABCLIA [id number] [address] [address] LABCLIA [id number] [place] [address] [place] MCV (RBC) [Entitic vol] 100.4 fL High 80.0-100.0 [facility] Comment on above: Order Comment: Speci men Type: BLOOD SPECIMENOrdering Facility: [facility] Address: [address] [place], [place] [address] Performed By: #### 5 7021-8 ####[facility] LABCLIA [id number] [address] LABCLIA [id number] [place] [address] [place] Neutrophils (Bld) [#/Vol] 1.07 10*3/uL Low 1.45-7.50 [facility] Comment on above: Order Comment: Speci men Type: BLOOD SPECIMENOrdering Facility: [facility] Address: [address] [place], [place] [address] Performed By: #### 5 7021-8 ####[facility] LABCLIA [id number] [address] LABCLIA [id number] [place] [address] [place] Neutrophils/100 WBC (Bld) 45.5 % Normal [facility] Comment on above: Order Comment: Speci men Type: BLOOD SPECIMENOrdering Facility: [facility] Address: [address] [place] [address] Performed By: #### 5 7021-8 ####[facility] LABCLIA [id number] [address] LABCLIA [id number] [place] [address] [place] Nucleated RBC/100 WBC (Bld) [Ratio] 0.0 /100 WBC Normal [facility] Comment on above: Order Comment: Speci men Type: BLOOD SPECIMENOrdering Facility: [facility] Address: [address] [place] [address] Performed By: #### 5 7021-8 ####[facility] LABCLIA [id number] [address] LABCLIA [id number] [place] [address] [place] Ovalocytes LM Ql (Bld) Few Normal [facility] Comment on above: Order Comment: Speci men Type: BLOOD SPECIMENOrdering Facility: [facility] Address: [address] [place] [address] Performed By: #### 5 7021-8 ####[facility] LABCLIA [id number] [address] LABCLIA [id number] [place] [address] [place] PLATELET ESTIMATE Decreased Normal [facility] Comment on above: Order Comment: Speci men Type: BLOOD SPECIMENOrdering Facility: [facility] Address: [address] [place] [address] Performed By: #### 5 7021-8 ####[facility] LABCLIA [id number] [address] LABCLIA [id number] [place] [address] [place] Platelet mean volume (Bld) [Entitic vol] Normal [facility] Comment on above: Order Comment: Speci men Type: BLOOD SPECIMENOrdering Facility: [facility] Address: [address] [place] [address] Result Comment: Unab le to Report. Performed By: #### 5 7021-8 ####[facility] LABCLIA [id number] [address] [id number] LABCLIA [id number] [place] [address] [place] Platelets (Bld) [#/Vol] 77 10*3/uL Low 150-400 [facility] Comment on above: Order Comment: Speci men Type: BLOOD SPECIMENOrdering Facility: [facility] Address: [address] [place] [address] Result Comment: Samp le checked for clot Performed By: #### 5 7021-8 ####[facility] LABCLIA [id number] [address] LABCLIA [id number] [place] [address] [place] Polychromasia LM Ql (Bld) Slight Normal [facility] Comment on above: Order Comment: Speci men Type: BLOOD SPECIMENOrdering Facility: [facility] Address: [address] [place] [address] Performed By: #### 5 7021-8 ####[facility] LABCLIA [id number] [address] LABCLIA [id number] [place] [address] [place] RBC (Bld) [#/Vol] 2.81 10*6/uL Low 4.20-6.00 [facility] Comment on above: Order Comment: Speci men Type: BLOOD SPECIMENOrdering Facility: [facility] Address: [address] [place] [address] Performed By: #### 5 7021-8 ####[facility] LABCLIA [id number] [address] LABCLIA [id number] [place] [address] [place] RBC FRAGMENTS Few Abnormal None Seen [facility] Comment on above: Order Comment: Speci men Type: BLOOD SPECIMENOrdering Facility: [facility] Address: [address] [place] [address] Performed By: #### 5 7021-8 ####[facility] LABCLIA [id number] [address] LABCLIA [id number] [place] [address] [place] RED CELL MORPH Reviewed: see result s of individual morphologies Normal [facility] Comment on above: Order Comment: Speci men Type: BLOOD SPECIMENOrdering Facility: [facility] Address: [address] [place] [address] Performed By: #### 5 7021-8 ####[facility] LABCLIA [id number] [address] LABCLIA [id number] [place] [address] [place] Variant lymphocytes/100 WBC (Bld) 0.0 % Normal [facility] Comment on above: Order Comment: Speci men Type: BLOOD SPECIMENOrdering Facility: [facility] Address: [address] [place], [place] [address] Performed By: #### 5 7021-8 ####[facility] LABCLIA [id number] [address] LABCLIA [id number] [place] [address] [place] WAM - ABS BASO 0.04 k/uL Normal <0.11 [facility] Comment on above: Order Comment: Speci men Type: BLOOD SPECIMENOrdering Facility: [facility] Address: [address] [place] [address] Performed By: #### 5 7021-8 ####[facility] LABCLIA [id number] [address] LABCLIA [id number] [place] [address] [place] WAM - ABS MONO 0.36 k/uL Normal <0.87 [facility] Comment on above: Order Comment: Speci men Type: BLOOD SPECIMENOrdering Facility: [facility] Address: [address] [place] [address] Performed By: #### 5 7021-8 ####[facility] LABCLIA [id number] [address] LABCLIA [id number] [place] [address] [place] WAM - MONO% 15.2 % Normal [facility] Comment on above: Order Comment: Speci men Type: BLOOD SPECIMENOrdering Facility: [facility] Address: [address] [place] [address] Performed By: #### 5 7021-8 ####[facility] LABCLIA [id number] [address] LABCLIA [id number] [place] [address] [place] WAM ABSOLUTE NRBC <0.01 Normal <0.01 [facility] Comment on above: Order Comment: Speci men Type: BLOOD SPECIMENOrdering Facility: [facility] Address: [address] [place] [address] Result Comment: This result was previously suppressed from the chart. Performed By: #### 5 7021-8 ####[facility] LABCLIA [id number] [address] LABCLIA [id number] [place] [address] [place] WBC (Bld) [#/Vol] 2.35 10*3/uL Low 3.70-11.00 [facility] Comment on above: Order Comment: Speci men Type: BLOOD SPECIMENOrdering Facility: [facility] Address: [address] [place] [address] Result Comment: [facility] Performed By: #### 5 7021-8 ####[facility] LABCLIA [id number] [place], [place] [address]JLGPNXRQYMER[facility] LABCLIA [id number] [facility] [id number] [address] [place] CNOVSPon 04-25-2022 CNOVSP Normal [facility] Comprehensive metabolic 2000 panelon 04-25-2022 Albumin [Mass/Vol] 4.0 g/dL Normal 3.9-4.9 [facility] Comment on above: Order Comment: Speci men Type: BLOOD SPECIMENOrdering Facility: [facility] Address: [address] [place] [address] Performed By: #### 2 532-0, 98345-0 ####[facility] LABCLIA [id number] [place] [address] ALP [Catalytic activity/Vol] 83 U/L Normal 38-113 [facility] Comment on above: Order Comment: Speci men Type: BLOOD SPECIMENOrdering Facility: [facility] Address: [address] [place] [address] Performed By: #### 2 532-0, ####[facility] LABCLIA [id number] [place] [address] ALT [Catalytic activity/Vol] 31 U/L Normal 10-54 [facility] Comment on above: Order Comment: Speci men Type: BLOOD SPECIMENOrdering Facility: [facility] Address: [address] [place] [address] Performed By: #### 2 532-0, 60441-1 ####[facility] LABCLIA [id number] [place] [address] Anion gap [Moles/Vol] 10 mmol/L Normal 9-18 [facility] Comment on above: Order Comment: Speci men Type: BLOOD SPECIMENOrdering Facility: [facility] Address: [address] [place], [place] [address] Performed By: #### 2 532-0, 84883-4 ####[facility] LABCLIA [id number] [place] [address] AST [Catalytic activity/Vol] 17 U/L Normal 14-40 [facility] Comment on above: Order Comment: Speci men Type: BLOOD SPECIMENOrdering Facility: [facility] Address: [address] [place] [address] Performed By: #### 2 532-0, 46505-2 ####[facility] LABCLIA [id number] [place] [address] Bilirubin [Mass/Vol] 1.0 mg/dL Normal 0.2-1.3 [facility] Comment on above: Order Comment: Speci men Type: BLOOD SPECIMENOrdering Facility: [facility] Address: [address] [place] [address] Performed By: #### 2 532-0, 00422-2 ####[facility] LABCLIA [id number] [place] [address] Calcium [Mass/Vol] 8.9 mg/dL Normal 8.5-10.2 [facility] Comment on above: Order Comment: Speci men Type: BLOOD SPECIMENOrdering Facility: [facility] Address: [address] [place] [address] Performed By: #### 2 532-0, ####[facility] LABCLIA [id number] [place] [address] Chloride [Moles/Vol] 104 mmol/L Normal 97-105 [facility] Comment on above: Order Comment: Speci men Type: BLOOD SPECIMENOrdering Facility: [facility] Address: [address] [place] [address] Performed By: #### 2 532-0, 93264-7 ####[facility] LABCLIA [id number] [place] [address] CO2 [Moles/Vol] 29 mmol/L Normal 22-30 [facility] Comment on above: Order Comment: Speci men Type: BLOOD SPECIMENOrdering Facility: [facility] Address: [address] [place] [address] Performed By: #### 2 532-0, 65094-4 ####[facility] LABIA [id number] [place] [address] Creatinine [Mass/Vol] 1.79 mg/dL High 0.73-1.22 [facility] Comment on above: Order Comment: Speci men Type: BLOOD SPECIMENOrdering Facility: [facility] Address: [address] [place] [address] Performed By: #### 2 532-0, 95002-6 ####[facility] [id number] [place] [address] ESTIMATED GLOMERULAR FILTRATION RATE 37 mL/min/1.73m??? Low >=60 [facility] Comment on above: Order Comment: Speci men Type: BLOOD SPECIMENOrdering Facility: [facility] Address: [address] [place] [address] Result Comment: Faye mated Glomerular Filtration Rate [...] actual GFR. Performed By: #### 2 532-0, 78170-4 ####[facility] LABIA [id number] [place] [address] Glucose [Mass/Vol] 127 mg/dL High 74-99 [facility] Comment on above: Order Comment: Speci men Type: BLOOD SPECIMENOrdering Facility: [facility] Address: [address] [place] [address] Result Comment: The [place] [employer] (ADA) provides guidance for cutoff [...] Standards of Medical Care in Diabetes 2016, [place] [employer]. Diabetes Care. 2016.39(Suppl 1). Performed By: #### 2 532-0, 31314-4 ####[facility] LABCLIA [id number] [place] [address] Potassium [Moles/Vol] 4.3 mmol/L Normal 3.7-5.1 [facility] Comment on above: Order Comment: Speci men Type: BLOOD SPECIMENOrdering Facility: [facility] Address: [address] [place], [place] [address] Performed By: #### 2 532-0, 98180-9 ####[facility] LABIA [id number] [place] [address] Protein [Mass/Vol] 6.1 g/dL Low 6.3-8.0 [facility] Comment on above: Order Comment: Speci men Type: BLOOD SPECIMENOrdering Facility: [facility] Address: [address] [address] Performed By: #### 2 532-0, 50441-7 ####[facility] LABCLIA [id number] [place] [address] Sodium [Moles/Vol] 143 mmol/L Normal 136-144 [facility] Comment on above: Order Comment: Speci men Type: BLOOD SPECIMENOrdering Facility: [facility] Address: [address] Performed By: #### 2 532-0, 51285-8 ####[facility] LABCLIA [id number] [place] [address] Urea nitrogen [Mass/Vol] 29 mg/dL High 9-24 [facility] Comment on above: Order Comment: Speci men Type: BLOOD SPECIMENOrdering Facility: [facility] Address: [address] [place], [place] [address] Performed By: #### 2 532-0, 70630-0 ####[facility] LABCLIA [id number] [place] [address] Albumin [Mass/Vol] 4.0 g/dL 3.9 - 4.9 g/dL [facility] ALP [Catalytic activity/Vol] 83 U/L 38 - 113 U/L [facility] ALT [Catalytic activity/Vol] 31 U/L 10 - 54 U/L [facility] Anion gap [Moles/Vol] 10 mmol/L 9 - 18 mmol/L [facility] AST [Catalytic activity/Vol] 17 U/L 14 - 40 U/L [facility] Bilirubin [Mass/Vol] 1.0 mg/dL 0.2 - 1.3 mg/dL [facility] Calcium [Mass/Vol] 8.9 mg/dL 8.5 - 10.2 mg/dL [facility] Chloride [Moles/Vol] 104 mmol/L 97 - 105 mmol/L [facility] CO2 [Moles/Vol] 29 mmol/L 22 - 30 mmol/L [facility] Creatinine [Mass/Vol] 1.79 mg/dL High 0.73 - 1.22 mg/dL [facility] Estimated Glomerular Filtration Rate 37 mL/min/1.73m Low >=60 mL/min/1.73m [facility] Glucose [Mass/Vol] 127 mg/dL High 74 - 99 mg/dL [facility] Potassium [Moles/Vol] 4.3 mmol/L 3.7 - 5.1 mmol/L [facility] Protein [Mass/Vol] 6.1 g/dL Low 6.3 - 8.0 g/dL [facility] Sodium [Moles/Vol] 143 mmol/L 136 - 144 mmol/L [facility] Urea nitrogen [Mass/Vol] 29 mg/dL High 9 - 24 mg/dL [facility] DNA EXTRACTION BONE MARROW ( BUFFY COAT)on 04-25-2022 DNA EXTRACTION BONE MARROW (BUFFY COAT) Normal [facility] Comment on above: Order Comment: Davi avendaño Type: BONE MARROW SPECIMENOrdering Facility: [facility] Address: [address] [place] [address] Result Comment: This specimen was received and successfully processed for future DNA purification should molecular testing be needed. Specimens will be available for 3 years from date of collection.To order testing on this specimen for [facility] patients, please place an Transmit Promo order for DNA and RNA Clinical Testing ([id number]). To order testing for patients outside of the [facility] system, please request DNA and RNA for Clinical Testing, order code [id number].If additional paperwork is required for testing, please send completed forms via secure email to [email or web address]. Performed By: #### N UCBUF ####[facility] LIMSCLIA [id number] [address] [place] FLOW CYTOMETRY BONE MARROW H OLD (BMHOLD)on 04-25-2022 FLOW CYTOMETRY ORDER STATUS See Results in chart under F case ID Normal [facility] Comment on above: Order Comment: Davi avendaño Type: BONE MARROW SPECIMENOrdering Facility: [facility] Address: [address] [place] [address] Performed By: #### B MHOLDRFLX, BMHOLD ####[facility] LABCLIA [id number] [address] OF [facility] FLOW CYTOMETRY BONE MARROW R EFLEXon 04-25-2022 CASE REPORT Normal [facility] Comment on above: Order Comment: Davi avendaño Type: BONE MARROW SPECIMENOrdering Facility: [facility] Address: [address] [place], [place] [address] Result Comment: Flow Cytometry Case: [id number] Provider: Asher Hummel MD Collected: 04/25/2022 08:35 AMOrdering Location: Hematology/Oncology Received: 04/26/2022 08:07 AMPathologist: JAK Escobarpecimen: Bone Marrow Performed By: #### B MHOLDRFLX, BMHOLD ####[facility] LABCLIA [id number] [address] GROSS DESCRIPTION A. Bone Marrow Normal [facility] Comment on above: Order Comment: Speci men Type: BONE MARROW SPECIMENOrdering Facility: [facility] Address: [address] [place] [address] Result Comment: RECE IVED 1 ML BONE MARROW IN HEPARIN Performed By: #### B MHOLDRFLX, BMHOLD ####[facility] WESTIA [id number] [address] [place] INTERPRETATION Normal [facility] Comment on above: Order Comment: Speci men Type: BONE MARROW SPECIMENOrdering Facility: [facility] Address: [address] [place] [address] Result Comment: Spec imen type: Bone marrow aspirateViability: 95%Flow Cytometry Bone Marrow ImmunophenotypingMarker Normal Cell Type Result (Lymphocytes)CD3 T-cells Normal PatternCD4 T-cell subset Normal PatternCD5 T-cells Normal PatternCD7 T/NK-cells Normal PatternCD8 T-cell subset Normal TcpxwezIU21 Myeloid Normal QnuvdkaTJ47/56 NK cells Normal VjenaquBD35 B-cells Normal KarscghXX05 Blasts Normal XxxgdejQQ48 Sarmiento-leukocyte Normal Patternkappa/lambda B-cells PolytypicFlow cytometric analysis [...] developed and its performance characteristics determined by [facility]???s Jasper Rodriguez [facility] Pathology and Laboratory Medicine [place] ([facility]). It has not been cleared or approved by the FDA. [facility] is regulated under CLIA as qualified to perform high-complexity testing. This test is used for clinical purposes. It should not be regarded as investigational or for research purposes.DSB/MS 04/26/2022 Diagnostic interpretation performed at [facility], [address] [place] [address] CLIA# [id number] Director: Candido Pierre M.D. Performed By: #### B MHPAKO, BMHOLD ####[facility] LABCLIA [id number] [address] STATES OF [facility] FLT3 ITD HN BONE MARROWon CLARITY SIGNOUT PATHOLOGIST [id number] Normal [facility] Comment on above: Order Comment: Speciman avendaño Type: BONE MARROW SPECIMENOrdering Facility: [facility] Address: [address] [place] [address] Performed By: #### M YMARTURO, F3IM ####[facility] LIMSCLIA [id number] [address] [place] FLT3 ITD HN PANEL BONE MARROW Normal [facility] Comment on above: Order Comment: Davi avendaño Type: BONE MARROW SPECIMENOrdering Facility: [facility] Address: [address] [place] [address] Result Comment: FLT3 Internal Tandem Duplication (ITD) Mutation TestingLaboratory Accession Number: [id number] Internal Tandem Duplication (ITD) mutation: Not DetectedComment:FLT3/ITD [...] from the specimen provided. Regions of the FIC8ddkrwqyx kinase receptor gene are subjected to the [...] molecular findings to assessprognosis within myeloid neoplasms.References:1) Violet MP, Abbe P, Socoi E, et al. Mutational landscapeof AML with normal cytogenetics: biological and clinical implications.Blood Rev.2013;27:13-22.2) [place] MAY[place], Paula M, Arevalo ME, et al. Prognostic relevance ofintegrated genetic profiling in acute myeloid leukemia. N Engl J Med.2011Oct 16;366 (12):1079-89.3) Mickeyer H, Carlo E, Main Mccall, et al. Diagnosis and mangement ofAML in adults: 2017 ELN recommendations from an international expertpanel. Blood 129,424-448 (2017).Disclaimer:This test was developed and its performance characteristics determinedby [facility]'s [facility] Pathology and LaboratoryMedicine [place] ([facility]). It has not been cleared or approved bythe FDA. [facility] is regulated under CLIA as certified to perform high-complexity testing. This test is used for clinical purposes. It shouldnot be regarded as investigational or for research.Testing and interpretation performed at [facility], [address] [place], [place] [address]. CLIA Number: [id number] reviewed by Lisa Hernadez, PhD, HCLD Performed By: #### M DEENA, F3IM ####[facility] LIMSCLIA [id number] [place] [address] [place] LD LACTATE DEHYDROon 022 LDH [Catalytic activity/Vol] 234 U/L High 135 - 225 U/L [facility] LDH SerPl-cCncon 04-25-2022 LDH [Catalytic activity/Vol] 234 U/L High 135-225 [facility] Comment on above: Order Comment: Speci men Type: BLOOD SPECIMENOrdering Facility: [facility] Address: [address] [place] [address] Performed By: #### 2 532-0, 90622-7 ####[facility] LABCLIA [id number] [place] [id number] MYELOID NGS PANEL BONE MARRO Won 04-25-2022 MYELOID NGS PANEL BONE MARROW Normal [facility] Comment on above: Order Comment: Speci men Type: BONE MARROW SPECIMENOrdering Facility: [facility] Address: [address] [place] [address] Result Comment: Myel oid NGS Panel Bone MarrowLaboratory Accession Number: [id number]:Please see linked document and/or separate report for full result whenavailable.As reviewed by Lisa Hernadez, PhD, HCLD Performed By: #### M DEENA, F3IM ####[facility] LIMSCLIA [id number] [place] [address] [place] CNPNon 04-23-2022 CNPN Normal [facility] CBC W Auto Differential pane l (Bld)on 04-22-2022 Anisocytosis Ql (Bld) Present Normal [facility] Comment on above: Order Comment: Speci men Type: BLOOD SPECIMENOrdering Facility: [facility] Address: [address] [place] [address] Performed By: #### 5 7021-8 ####[facility] LABCLIA [id number] [address] [address] [facility] LABCLIA [id number] [place] [address] Basophils/100 WBC (Bld) 0.0 % Normal [facility] Comment on above: Order Comment: Speci men Type: BLOOD SPECIMENOrdering Facility: [facility] Address: [address] [place], [place] [address] Performed By: #### 5 7021-8 ####[facility] LABCLIA [id number] [address] [address] [facility] LABCLIA [id number] [place] [address] Dacrocytes LM Ql (Bld) Few Normal [facility] Comment on above: Order Comment: Speci men Type: BLOOD SPECIMENOrdering Facility: [facility] Address: [address] [place] [address] Performed By: #### 5 7021-8 ####[facility] LABCLIA [id number] [address] LABCLIA [id number] [place] [address] Differential cell count method Nom (Bld) Manual Normal [facility] Comment on above: Order Comment: Speci men Type: BLOOD SPECIMENOrdering Facility: [facility] Address: [address] [place] [address] Performed By: #### 5 7021-8 ####[facility] LABCLIA [id number] [address] LABCLIA [id number] [place] [address] Eosinophils (Bld) [#/Vol] 0.04 10*3/uL Normal <0.46 [facility] Comment on above: Order Comment: Speci men Type: BLOOD SPECIMENOrdering Facility: [facility] Address: [address] [place], [place] [address] Performed By: #### 5 7021-8 ####[facility] LABCLIA [id number] [address] [address] [facility] LABCLIA [id number] [place] [address] Eosinophils/100 WBC (Bld) 2.0 % Normal [facility] Comment on above: Order Comment: Speci men Type: BLOOD SPECIMENOrdering Facility: [facility] Address: [address] [place], [place] [address] Performed By: #### 5 7021-8 ####[facility] LABCLIA [id number] [address] LABCLIA [id number] [place] [address] Erythrocyte distribution width (RBC) [Ratio] 26.1 % High 11.5-15.0 [facility] Comment on above: Order Comment: Speci men Type: BLOOD SPECIMENOrdering Facility: [facility] Address: [address] [place], [place] [address] Performed By: #### 5 7021-8 ####[facility] LABCLIA [id number] [address] LABCLIA [id number] [place] [address] Hematocrit (Bld) [Volume fraction] 23.8 % Low 39.0-51.0 [facility] Comment on above: Order Comment: Speci men Type: BLOOD SPECIMENOrdering Facility: [facility] Address: [address] [place], [place] [address] Performed By: #### 5 7021-8 ####[facility] LABCLIA [id number] [address] [facility] LABCLIA [id number] [place] [address] Hemoglobin (Bld) [Mass/Vol] 7.5 g/dL Low 13.0-17.0 [facility] Comment on above: Order Comment: Speci men Type: BLOOD SPECIMENOrdering Facility: [facility] Address: [address] [place] [address] Performed By: #### 5 7021-8 ####[facility] LABCLIA [id number] [address] LABCLIA [id number] [place] [address] Lymphocytes (Bld) [#/Vol] 0.89 10*3/uL Low 1.00-4.00 [facility] Comment on above: Order Comment: Speci men Type: BLOOD SPECIMENOrdering Facility: [facility] Address: [address] [place] [address] Performed By: #### 5 7021-8 ####[facility] LABCLIA [id number] [address] LABCLIA [id number] [place] [address] Lymphocytes/100 WBC (Bld) 43.0 % Normal [facility] Comment on above: Order Comment: Speci men Type: BLOOD SPECIMENOrdering Facility: [facility] Address: [address] [place], [place] [address] Performed By: #### 5 7021-8 ####[facility] LABCLIA [id number] [address] LABCLIA [id number] [place] [address] MCH (RBC) [Entitic mass] 33.2 pg Normal 26.0-34.0 [facility] Comment on above: Order Comment: Speci men Type: BLOOD SPECIMENOrdering Facility: [facility] Address: [address] [place], [place] [address] Performed By: #### 5 7021-8 ####[facility] LABCLIA [id number] [address] LABCLIA [id number] [place] [address] MCHC (RBC) [Mass/Vol] 31.5 g/dL Normal 30.5-36.0 [facility] Comment on above: Order Comment: Speci men Type: BLOOD SPECIMENOrdering Facility: [facility] Address: [address] [place], [place] [address] Performed By: #### 5 7021-8 ####[facility] LABCLIA [id number] [address] LABCLIA [id number] [place] [address] MCV (RBC) [Entitic vol] 105.3 fL High 80.0-100.0 [facility] Comment on above: Order Comment: Speci men Type: BLOOD SPECIMENOrdering Facility: [facility] Address: [address] [place] [address] Performed By: #### 5 7021-8 ####[facility] LABCLIA [id number] [address] LABCLIA [id number] [place] [address] MYELO% 1.0 % Normal [facility] Comment on above: Order Comment: Speci men Type: BLOOD SPECIMENOrdering Facility: [facility] Address: [address] [place], [place] [address] Performed By: #### 5 7021-8 ####[facility] LABCLIA [id number] [address] LABCLIA [id number] [place] [address] Neutrophils (Bld) [#/Vol] 0.72 10*3/uL Low 1.45-7.50 [facility] Comment on above: Order Comment: Speci men Type: BLOOD SPECIMENOrdering Facility: [facility] Address: [address] [place] [address] Performed By: #### 5 7021-8 ####[facility] LABCLIA [id number] [address] LABCLIA [id number] [place] [address] Neutrophils/100 WBC (Bld) 35.0 % Normal [facility] Comment on above: Order Comment: Speci men Type: BLOOD SPECIMENOrdering Facility: [facility] Address: [address] [place] [address] Performed By: #### 5 7021-8 ####[facility] LABCLIA [id number] [address] LABCLIA [id number] [place] [address] Nucleated RBC/100 WBC (Bld) [Ratio] 0.0 /100 WBC Normal [facility] Comment on above: Order Comment: Speci men Type: BLOOD SPECIMENOrdering Facility: [facility] Address: [address] [place], [place] [address] Performed By: #### 5 7021-8 ####[facility] LABCLIA [id number] [address] LABIA [id number] [place] [address] Ovalocytes LM Ql (Bld) Few Normal [facility] Comment on above: Order Comment: Speci men Type: BLOOD SPECIMENOrdering Facility: [facility] Address: [address] [place], [place] [address] Performed By: #### 5 7021-8 ####[facility] LABCLIA [id number] [address] LABCLIA [id number] [place] [address] PLATELET ESTIMATE Decreased Normal [facility] Comment on above: Order Comment: Speci men Type: BLOOD SPECIMENOrdering Facility: [facility] Address: [address] [place], [place] [address] Performed By: #### 5 7021-8 ####[facility] LABCLIA [id number] [address] LABCLIA [id number] [place] [address] Platelet mean volume (Bld) [Entitic vol] Normal [facility] Comment on above: Order Comment: Speci men Type: BLOOD SPECIMENOrdering Facility: [facility] Address: [address] [place], [place] [address] Result Comment: Unab le to Report. Performed By: #### 5 7021-8 ####[facility] LABCLIA [id number] [address] LABCLIA [id number] [place] [address] Platelets (Bld) [#/Vol] 86 10*3/uL Low 150-400 [facility] Comment on above: Order Comment: Speci men Type: BLOOD SPECIMENOrdering Facility: [facility] Address: [address] [place] [address] Result Comment: Resu lts checked and verified. No clot detected Performed By: #### 5 7021-8 ####[facility] LABCLIA [id number] [address] LABCLIA [id number] [place] [address] Polychromasia LM Ql (Bld) Slight Normal [facility] Comment on above: Order Comment: Speci men Type: BLOOD SPECIMENOrdering Facility: [facility] Address: [address] [place] [address] Performed By: #### 5 7021-8 ####[facility] LABCLIA [id number] [address] LABCLIA [id number] [place] [address] RBC (Bld) [#/Vol] 2.26 10*6/uL Low 4.20-6.00 [facility] Comment on above: Order Comment: Speci men Type: BLOOD SPECIMENOrdering Facility: [facility] Address: [address] [place], [place] [address] Performed By: #### 5 7021-8 ####[facility] LABCLIA [id number] [address] LABCLIA [id number] [place] [address] RBC FRAGMENTS Few Abnormal None Seen [facility] Comment on above: Order Comment: Speci men Type: BLOOD SPECIMENOrdering Facility: [facility] Address: [address] [place] [address] Performed By: #### 5 7021-8 ####[facility] LABCLIA [id number] [address] LABCLIA [id number] [place] [address] RED CELL MORPH Reviewed: see result s of individual morphologies Normal [facility] Comment on above: Order Comment: Speci men Type: BLOOD SPECIMENOrdering Facility: [facility] Address: [address] [place] [address] Performed By: #### 5 7021-8 ####[facility] LABCLIA [id number] [address] [address] [facility] LABCLIA [id number] [place] [address] WAM - ABS BASO 0.00 k/uL Normal <0.11 [facility] Comment on above: Order Comment: Speci men Type: BLOOD SPECIMENOrdering Facility: [facility] Address: [address] [place] [address] Performed By: #### 5 7021-8 ####[facility] LABCLIA [id number] [address] LABCLIA [id number] [place] [address] WAM - ABS MONO 0.39 k/uL Normal <0.87 [facility] Comment on above: Order Comment: Speci men Type: BLOOD SPECIMENOrdering Facility: [facility] Address: [address] [place] [address] Performed By: #### 5 7021-8 ####[facility] LABCLIA [id number] [address] LABCLIA [id number] [place] [address] WAM - MONO% 19.0 % Normal [facility] Comment on above: Order Comment: Speci men Type: BLOOD SPECIMENOrdering Facility: [facility] Address: [address] [place], [place] [address] Performed By: #### 5 7021-8 ####[facility] LABCLIA [id number] [place] [address] [facility] LABCLIA [id number] [place] [address] WAM ABSOLUTE NRBC <0.01 Normal <0.01 [facility] Comment on above: Order Comment: Speci men Type: BLOOD SPECIMENOrdering Facility: [facility] Address: [address] [place] [address] Performed By: #### 5 7021-8 ####[facility] LABCLIA [id number] [address] LABCLIA [id number] [place] [address] WBC (Bld) [#/Vol] 2.07 10*3/uL Low 3.70-11.00 [facility] Comment on above: Order Comment: Speci men Type: BLOOD SPECIMENOrdering Facility: [facility] Address: [address] [place] [address] Result Comment: Resu lts checked and verified. No clot detected Performed By: #### 5 7021-8 ####[facility] LABCLIA [id number] [address] LABCLIA [id number] [place] [address] WBC Left Shift Ql (Bld) Present Normal [facility] Comment on above: Order Comment: Speci men Type: BLOOD SPECIMENOrdering Facility: [facility] Address: [address] [place] [address] Performed By: #### 5 7021-8 ####[facility] LABCLIA [id number] [address] LABCLIA [id number] [place] [address] CNOVSPon 04-22-2022 CNOVSP Normal [facility] CNPNon 04-22-2022 CNPN Normal [facility] Comprehensive metabolic 2000 panelon 04-22-2022 Albumin [Mass/Vol] 3.9 g/dL Normal 3.9-4.9 [facility] [facility] Comment on above: Order Comment: Speci men Type: BLOOD SPECIMENOrdering Facility: [facility] Address: [address] [place], [place] [address] Performed By: #### 2 432-8, 2531-0 ####[facility] LABCLIA [id number] [place] [address] ALP [Catalytic activity/Vol] 83 U/L Normal 38-113 [facility] Comment on above: Order Comment: Speci men Type: BLOOD SPECIMENOrdering Facility: [facility] Address: [address] [place] [address] Performed By: #### 2 4328, 2531-0 ####[facility] LABCLIA [id number] [place] [address] ALT [Catalytic activity/Vol] 30 U/L Normal 10-54 [facility] Comment on above: Order Comment: Speci men Type: BLOOD SPECIMENOrdering Facility: [facility] Address: [address] [place] [address] Performed By: #### 2 4328, 2531-0 ####[facility] LABCLIA [id number] [place] [address] Anion gap [Moles/Vol] 9 mmol/L Normal 9-18 [facility] Comment on above: Order Comment: Speci men Type: BLOOD SPECIMENOrdering Facility: [facility] Address: [address] [place] [address] Performed By: #### 2 4328, 2531-0 ####[facility] LABCLIA [id number] [place] [address] AST [Catalytic activity/Vol] 15 U/L Normal 14-40 [facility] Comment on above: Order Comment: Speci men Type: BLOOD SPECIMENOrdering Facility: [facility] Address: [address] [place] [address] Performed By: #### 2 4323-8, 2531-0 ####[facility] LABCLIA [id number] [place] [address] Bilirubin [Mass/Vol] 0.8 mg/dL Normal 0.2-1.3 [facility] Comment on above: Order Comment: Speci men Type: BLOOD SPECIMENOrdering Facility: [facility] Address: [address] [place] [address] Performed By: #### 2 4323-8, 2532-0 ####[facility] LABCLIA [id number] [place] [address] Calcium [Mass/Vol] 9.1 mg/dL Normal 8.5-10.2 [facility] Comment on above: Order Comment: Speci men Type: BLOOD SPECIMENOrdering Facility: [facility] Address: [address] [place] [address] Performed By: #### 2 4323-8, 2531-0 ####[facility] LABCLIA [id number] [place] [address] Chloride [Moles/Vol] 108 mmol/L High 97-105 [facility] Comment on above: Order Comment: Speci men Type: BLOOD SPECIMENOrdering Facility: [facility] Address: [address] [place] [address] Performed By: #### 2 4323-8, 2531-0 ####[facility] LABCLIA [id number] [place] [address] CO2 [Moles/Vol] 28 mmol/L Normal 22-30 [facility] Comment on above: Order Comment: Speci men Type: BLOOD SPECIMENOrdering Facility: [facility] Address: [address] [place] [address] Performed By: #### 2 4323-8, 2532-0 ####[facility] LABCLIA [id number] [place] [address] Creatinine [Mass/Vol] 1.76 mg/dL High 0.73-1.22 [facility] Comment on above: Order Comment: Speci men Type: BLOOD SPECIMENOrdering Facility: [facility] Address: [address] [place], [place] [address] Performed By: #### 2 4323-8, 2531-0 ####[facility] LABCLIA [id number] [place] [address] ESTIMATED GLOMERULAR FILTRATION RATE 38 mL/min/1.73m??? Low >=60 [facility] Comment on above: Order Comment: Speci men Type: BLOOD SPECIMENOrdering Facility: [facility] Address: [address] [place], [place] [address] Result Comment: Faye mated Glomerular Filtration Rate [...] GFR. Performed By: #### 2 4323-8, 2531-0 ####[facility] LABCLIA [id number] [place] [address] Glucose [Mass/Vol] 170 mg/dL High 74-99 [facility] Comment on above: Order Comment: Davi avendaño Type: BLOOD SPECIMENOrdering Facility: [facility] Address: [address] [place], [place] [address] Result Comment: The [place] [employer] (ADA) provides guidance for cutoff [...] Standards of Medical Care in Diabetes 2016, [place] [employer]. Diabetes Care. 2016.39(Suppl 1). Performed By: #### 2 4328, 2531-0 ####[facility] LABCLIA [id number] [place] [address] Potassium [Moles/Vol] 4.2 mmol/L Normal 3.7-5.1 [facility] Comment on above: Order Comment: Speci men Type: BLOOD SPECIMENOrdering Facility: [facility] Address: [address] [place] [address] Performed By: #### 2 4328, 2531-0 ####[facility] LABCLIA [id number] [place] [address] Protein [Mass/Vol] 6.0 g/dL Low 6.3-8.0 [facility] Comment on above: Order Comment: Speci men Type: BLOOD SPECIMENOrdering Facility: [facility] Address: [address] [place] [address] Performed By: #### 2 4328, 0 ####[facility] LABCLIA [id number] [place] [address] Sodium [Moles/Vol] 145 mmol/L High 136-144 [facility] Comment on above: Order Comment: Speci men Type: BLOOD SPECIMENOrdering Facility: [facility] Address: [address] [place] [address] Performed By: #### 2 4328, 0 ####[facility] LABCLIA [id number] [place] [address] Urea nitrogen [Mass/Vol] 24 mg/dL Normal 9-24 [facility] Comment on above: Order Comment: Speci men Type: BLOOD SPECIMENOrdering Facility: [facility] Address: [address] [place] [address] Performed By: #### 2 4328, 2531-0 ####[facility] LABCLIA [id number] [place] [address] HEMOGLOBIN AND HEMATOCRITon 04-22-2022 Hematocrit (Bld) [Volume fraction] 23.1 % Critically low 42.0-54.0 [facility] Comment on above: Performed By: #### H GBHCT #### [facility] [address] [place] [address] [address] Benito To Hemoglobin (Bld) [Mass/Vol] 7.2 g/dL Critically low 14.0-18.0 [facility] Comment on above: Performed By: #### H GBHCT #### [facility] [address] [place], [place] [address] Dr. Benito To LDH SerPl-cCncon 04-22-2022 LDH [Catalytic activity/Vol] 220 U/L Normal 135-225 [facility] Comment on above: Order Comment: Speci men Type: BLOOD SPECIMENOrdering Facility: [facility] Address: [address] [place] [address] Performed By: #### 2 4323-8, 2532-0 ####[facility] LABCLIA [id number] [place] [address] TYPE AND SCREENon 04-22-2022 TYPE AND SCREEN Negative Normal [facility] Comment on above: Performed By: #### H H #### [facility] [address] [place], [place] [address] Dr. Benito To CNOVSPon 04-18-2022 CNOVSP Normal [facility] CBC W Auto Differential pane l (Bld)on 04-15-2022 Basophils (Bld) [#/Vol] 0.03 10*3/uL Normal <0.11 [facility] Comment on above: Order Comment: Speci men Type: BLOOD SPECIMENOrdering Facility: [facility] Address: [address] [place], [place] [address] Performed By: #### 5 7021-8 ####[facility] LABCLIA [id number] [place] [address] Basophils/100 WBC (Bld) 1.4 % Normal [facility] Comment on above: Order Comment: Speci men Type: BLOOD SPECIMENOrdering Facility: [facility] Address: [address] [place] [address] Performed By: #### 5 7021-8 ####[facility] LABCLIA [id number] [place] [address] Differential cell count method Nom (Bld) Auto Normal [facility] Comment on above: Order Comment: Speci men Type: BLOOD SPECIMENOrdering Facility: [facility] Address: [address] [place] [address] Performed By: #### 5 7021-8 ####[facility] LABCLIA [id number] [place] [address] Eosinophils (Bld) [#/Vol] 10*3/uL Normal <0.46 [facility] Comment on above: Order Comment: Speci men Type: BLOOD SPECIMENOrdering Facility: [facility] Address: [address] [place] [address] Performed By: #### 5 7021-8 ####[facility] LABCLIA [id number] [place] [address] Eosinophils/100 WBC (Bld) 0.5 % Normal [facility] Comment on above: Order Comment: Speci men Type: BLOOD SPECIMENOrdering Facility: [facility] Address: [address] [place] [address] Performed By: #### 5 7021-8 ####[facility] LABCLIA [id number] [place] [address] Erythrocyte distribution width (RBC) [Ratio] 26.0 % High 11.5-15.0 [facility] Comment on above: Order Comment: Speci men Type: BLOOD SPECIMENOrdering Facility: [facility] Address: [address] [place] [address] Performed By: #### 5 7021-8 ####[facility] LABCLIA [id number] [place] [address] Hematocrit (Bld) [Volume fraction] 24.9 % Low 39.0-51.0 [facility] Comment on above: Order Comment: Speci men Type: BLOOD SPECIMENOrdering Facility: [facility] Address: [address] [place] [address] Performed By: #### 5 7021-8 ####[facility] LABCLIA [id number] [place] [address] Hemoglobin (Bld) [Mass/Vol] 7.9 g/dL Low 13.0-17.0 [facility] Comment on above: Order Comment: Speci men Type: BLOOD SPECIMENOrdering Facility: [facility] Address: [address] [place] [address] Performed By: #### 5 7021-8 ####[facility] LABCLIA [id number] [place] [address] IMMATURE GRAN % 6.5 % Normal [facility] Comment on above: Order Comment: Speci men Type: BLOOD SPECIMENOrdering Facility: [facility] Address: [address] [place] [address] Performed By: #### 5 7021-8 ####[facility] LABCLIA [id number] [place] [address] IMMATURE GRAN ABS 0.14 k/uL High <0.10 [facility] Comment on above: Order Comment: Speci men Type: BLOOD SPECIMENOrdering Facility: [facility] Address: [address] [place] [address] Performed By: #### 5 7021-8 ####[facility] LABIA [id number] [place] [address] Lymphocytes (Bld) [#/Vol] 0.80 10*3/uL Low 1.00-4.00 [facility] Comment on above: Order Comment: Speci men Type: BLOOD SPECIMENOrdering Facility: [facility] Address: [address] [place] [address] Performed By: #### 5 7021-8 ####[facility] LABCLIA [id number] [place] [address] Lymphocytes/100 WBC (Bld) 37.0 % Normal [facility] Comment on above: Order Comment: Speci men Type: BLOOD SPECIMENOrdering Facility: [facility] Address: [address] [place] [address] Performed By: #### 5 7021-8 ####[facility] LABCLIA [id number] [place] [address] MCH (RBC) [Entitic mass] 33.5 pg Normal 26.0-34.0 [facility] Comment on above: Order Comment: Speci men Type: BLOOD SPECIMENOrdering Facility: [facility] Address: [address] [place] [address] Performed By: #### 5 7021-8 ####[facility] LABCLIA [id number] [place] [address] MCHC (RBC) [Mass/Vol] 31.7 g/dL Normal 30.5-36.0 [facility] Comment on above: Order Comment: Speci men Type: BLOOD SPECIMENOrdering Facility: [facility] Address: [address] [place] [address] Performed By: #### 5 7021-8 ####[facility] LABCLIA [id number] [place] [address] MCV (RBC) [Entitic vol] 105.5 fL High 80.0-100.0 [facility] Comment on above: Order Comment: Speci men Type: BLOOD SPECIMENOrdering Facility: [facility] Address: [address] [place] [address] Performed By: #### 5 7021-8 ####[facility] LABCLIA [id number] [place] [address] Monocytes (Bld) [#/Vol] 0.28 10*3/uL Normal <0.87 [facility] Comment on above: Order Comment: Speci men Type: BLOOD SPECIMENOrdering Facility: [facility] Address: [address] [place] [address] Performed By: #### 5 7021-8 ####[facility] LABCLIA [id number] [place] [address] Monocytes/100 WBC (Bld) 13.0 % Normal [facility] Comment on above: Order Comment: Speci men Type: BLOOD SPECIMENOrdering Facility: [facility] Address: [address] [place] [address] Performed By: #### 5 7021-8 ####[facility] LABCLIA [id number] [place] [address] Neutrophils (Bld) [#/Vol] 0.90 10*3/uL Low 1.45-7.50 [facility] Comment on above: Order Comment: Speci men Type: BLOOD SPECIMENOrdering Facility: [facility] Address: [address] [place] [address] Performed By: #### 5 7021-8 ####[facility] LABIA [id number] [place] [address] Neutrophils/100 WBC (Bld) 41.6 % Normal [facility] Comment on above: Order Comment: Speci men Type: BLOOD SPECIMENOrdering Facility: [facility] Address: [address] [place], [place] [address] Performed By: #### 5 7021-8 ####[facility] LABCLIA [id number] [place] [address] Nucleated RBC (Bld) [#/Vol] 0.02 10*3/uL High <0.01 [facility] Comment on above: Order Comment: Speci men Type: BLOOD SPECIMENOrdering Facility: [facility] Address: [address] [place], [place] [address] Performed By: #### 5 7021-8 ####[facility] LABCLIA [id number] [place] [address] Nucleated RBC/100 WBC (Bld) [Ratio] 0.9 /100 WBC Normal [facility] Comment on above: Order Comment: Speci men Type: BLOOD SPECIMENOrdering Facility: [facility] Address: [address] [place] [address] Performed By: #### 5 7021-8 ####[facility] LABCLIA [id number] [place] [address] Platelet mean volume (Bld) [Entitic vol] 13.7 fL High 9.0-12.7 [facility] Comment on above: Order Comment: Speci men Type: BLOOD SPECIMENOrdering Facility: [facility] Address: [address] [place] [address] Performed By: #### 5 7021-8 ####[facility] LABCLIA [id number] [place] [address] Platelets (Bld) [#/Vol] 132 10*3/uL Low 150-400 [facility] Comment on above: Order Comment: Speci men Type: BLOOD SPECIMENOrdering Facility: [facility] Address: [address] [place] [address] Result Comment: Resu lts checked and verified. No clot detected. Sample checked for clot Performed By: #### 5 7021-8 ####[facility] LABCLIA [id number] [place] [address] RBC (Bld) [#/Vol] 2.36 10*6/uL Low 4.20-6.00 [facility] Comment on above: Order Comment: Speci men Type: BLOOD SPECIMENOrdering Facility: [facility] Address: [address] [place] [address] Performed By: #### 5 7021-8 ####[facility] LABCLIA [id number] [place] [address] WBC (Bld) [#/Vol] 2.16 10*3/uL Low 3.70-11.00 [facility] Comment on above: Order Comment: Speci men Type: BLOOD SPECIMENOrdering Facility: [facility] Address: [address] [place] [address] Performed By: #### 5 7021-8 ####[facility] LABCLIA [id number] [place] [address] CNPNon 04-15-2022 CNPN Normal [facility] Comprehensive metabolic 2000 panelon 04-15-2022 Albumin [Mass/Vol] 4.0 g/dL Normal 3.9-4.9 [facility] Comment on above: Order Comment: Speci men Type: BLOOD SPECIMENOrdering Facility: [facility] Address: [address] [place] [address] Performed By: #### 2 532-0, 99963-1 ####[facility] LABCLIA [id number] [place] [address] ALP [Catalytic activity/Vol] 76 U/L Normal 38-113 [facility] Comment on above: Order Comment: Speci men Type: BLOOD SPECIMENOrdering Facility: [facility] Address: [address] [place] [address] Performed By: #### 2 532-0, 74704-7 ####[facility] LABCLIA [id number] [place] [address] ALT [Catalytic activity/Vol] 28 U/L Normal 10-54 [facility] Comment on above: Order Comment: Speci men Type: BLOOD SPECIMENOrdering Facility: [facility] Address: [address] [place] [address] Performed By: #### 2 532-0, 38105-1 ####[facility] LABCLIA [id number] [place] [address] Anion gap [Moles/Vol] 10 mmol/L Normal 9-18 [facility] Comment on above: Order Comment: Speci men Type: BLOOD SPECIMENOrdering Facility: [facility] Address: [address] [place], [place] [address] Performed By: #### 2 532-0, ####[facility] LABCLIA [id number] [place] [address] AST [Catalytic activity/Vol] 15 U/L Normal 14-40 [facility] Comment on above: Order Comment: Speci men Type: BLOOD SPECIMENOrdering Facility: [facility] Address: [address] [place], [place] [address] Performed By: #### 2 532-0, ####[facility] LABCLIA [id number] [place] [address] Bilirubin [Mass/Vol] 0.6 mg/dL Normal 0.2-1.3 [facility] Comment on above: Order Comment: Speci men Type: BLOOD SPECIMENOrdering Facility: [facility] Address: [address] [place] [address] Performed By: #### 2 532-0, ####[facility] LABIA [id number] [place] [address] Calcium [Mass/Vol] 8.9 mg/dL Normal 8.5-10.2 [facility] Comment on above: Order Comment: Speci men Type: BLOOD SPECIMENOrdering Facility: [facility] Address: [address] [place], [place] [address] Performed By: #### 2 532-0, ####[facility] LABCLIA [id number] [place] [address] Chloride [Moles/Vol] 107 mmol/L High 97-105 [facility] Comment on above: Order Comment: Speci men Type: BLOOD SPECIMENOrdering Facility: [facility] Address: [address] [place], [place] [address] Performed By: #### 2 532-0, 06448-3 ####[facility] LABCLIA [id number] [place] [address] CO2 [Moles/Vol] 28 mmol/L Normal 22-30 [facility] Comment on above: Order Comment: Speci men Type: BLOOD SPECIMENOrdering Facility: [facility] Address: [address] [place] [address] Performed By: #### 2 532-0, 44928-0 ####[facility] LABCLIA [id number] [place] [address] Creatinine [Mass/Vol] 1.76 mg/dL High 0.73-1.22 [facility] Comment on above: Order Comment: Speci men Type: BLOOD SPECIMENOrdering Facility: [facility] Address: [address] [place] [address] Performed By: #### 2 532-0, 83490-1 ####[facility] LABIA [id number] [place] [address] ESTIMATED GLOMERULAR FILTRATION RATE 38 mL/min/1.73m??? Low >=60 [facility] Comment on above: Order Comment: Speci men Type: BLOOD SPECIMENOrdering Facility: [facility] Address: [address] [place] [address] Result Comment: Faye mated Glomerular Filtration Rate [...] actual GFR. Performed By: #### 2 532-0, 24664-2 ####[facility] LABIA [id number] [place] [address] Glucose [Mass/Vol] 223 mg/dL High 74-99 [facility] Comment on above: Order Comment: Speci men Type: BLOOD SPECIMENOrdering Facility: [facility] Address: [address] [id number] Result Comment: The [place] [employer] (ADA) provides guidance for cutoff [...] Standards of Medical Care in Diabetes 2016, [place] [employer]. Diabetes Care. 2016.39(Suppl 1). Performed By: #### 2 532-0, 81015-2 ####[facility] LABCLIA [id number] [place] [address] Potassium [Moles/Vol] 3.9 mmol/L Normal 3.7-5.1 [facility] Comment on above: Order Comment: Speci men Type: BLOOD SPECIMENOrdering Facility: [facility] Address: [address] [place], [place] [address] Performed By: #### 2 532-0, 15005-8 ####[facility] LABCLIA [id number] [place] [address] Protein [Mass/Vol] 6.0 g/dL Low 6.3-8.0 [facility] Comment on above: Order Comment: Speci men Type: BLOOD SPECIMENOrdering Facility: [facility] Address: [address] Performed By: #### 2 532-0, ####[facility] LABCLIA [id number] [place] [address] Sodium [Moles/Vol] 145 mmol/L High 136-144 [facility] Comment on above: Order Comment: Speci men Type: BLOOD SPECIMENOrdering Facility: [facility] Address: [address] [place] [address] Performed By: #### 2 532-0, 80216-7 ####[facility] LABCLIA [id number] [place] [address] Urea nitrogen [Mass/Vol] 26 mg/dL High 9-24 [facility] Comment on above: Order Comment: Speci men Type: BLOOD SPECIMENOrdering Facility: [facility] Address: [address] [place] [address] Performed By: #### 2 532-0, 08300-0 ####[facility] LABCLIA [id number] [place] [address] LDH SerPl-cCncon 04-15-2022 LDH [Catalytic activity/Vol] 227 U/L High 135-225 [facility] Comment on above: Order Comment: Speci men Type: BLOOD SPECIMENOrdering Facility: [facility] Address: [address] [place] [address] Performed By: #### 2 532-0, 26056-3 ####[facility] LABIA [id number] [place] [id number] CBC W Auto Differential pane l (Bld)on 04-08-2022 Anisocytosis Ql (Bld) Present Normal [facility] Comment on above: Order Comment: Speci men Type: BLOOD SPECIMENOrdering Facility: [facility] Address: [address] [place] [address] Performed By: #### 5 7021-8 ####[facility] LABCLIA [id number] [place], [place] [address] LABCLIA [id number] [place] [address] [place] Basophils/100 WBC (Bld) 2.7 % Normal [facility] Comment on above: Order Comment: Speci men Type: BLOOD SPECIMENOrdering Facility: [facility] Address: [address] [place] [address] Performed By: #### 5 7021-8 ####[facility] LABCLIA [id number] [address] LABCLIA [id number] [place] [address] [place] Differential cell count method Nom (Bld) Manual Normal [facility] Comment on above: Order Comment: Speci men Type: BLOOD SPECIMENOrdering Facility: [facility] Address: [address] [place] [address] Performed By: #### 5 7021-8 ####[facility] LABCLIA [id number] [address] LABCLIA [id number] [place] [address] [place] Eosinophils (Bld) [#/Vol] 0.01 10*3/uL Normal <0.46 [facility] Comment on above: Order Comment: Speci men Type: BLOOD SPECIMENOrdering Facility: [facility] Address: [address] [place], [place] [address] Performed By: #### 5 7021-8 ####[facility] LABCLIA [id number] [address] LABCLIA [id number] [place] [address] [place] Eosinophils/100 WBC (Bld) 0.5 % Normal [facility] Comment on above: Order Comment: Speci men Type: BLOOD SPECIMENOrdering Facility: [facility] Address: [address] [place] [address] Performed By: #### 5 7021-8 ####[facility] LABCLIA [id number] [address] LABCLIA [id number] [place] [address] [place] Erythrocyte distribution width (RBC) [Ratio] 24.5 % High 11.5-15.0 [facility] Comment on above: Order Comment: Speci men Type: BLOOD SPECIMENOrdering Facility: [facility] Address: [address] [place] [address] Performed By: #### 5 7021-8 ####[facility] LABCLIA [id number] [address] LABCLIA [id number] [place] [address] [place] Hematocrit (Bld) [Volume fraction] 25.8 % Low 39.0-51.0 [facility] Comment on above: Order Comment: Speci men Type: BLOOD SPECIMENOrdering Facility: [facility] Address: [address] [place] [address] Performed By: #### 5 7021-8 ####[facility] LABCLIA [id number] [address] LABCLIA [id number] [place] [address] [place] Hemoglobin (Bld) [Mass/Vol] 8.1 g/dL Low 13.0-17.0 [facility] Comment on above: Order Comment: Speci men Type: BLOOD SPECIMENOrdering Facility: [facility] Address: [address] [place], [place] [address] Performed By: #### 5 7021-8 ####[facility] LABCLIA [id number] [address] LABCLIA [id number] [place] [address] [place] Lymphocytes (Bld) [#/Vol] 0.81 10*3/uL Low 1.00-4.00 [facility] Comment on above: Order Comment: Speci men Type: BLOOD SPECIMENOrdering Facility: [facility] Address: [address] [place], [place] [address] Performed By: #### 5 7021-8 ####[facility] LABCLIA [id number] [address] LABCLIA [id number] [place] [address] [place] Lymphocytes/100 WBC (Bld) 44.8 % Normal [facility] Comment on above: Order Comment: Speci men Type: BLOOD SPECIMENOrdering Facility: [facility] Address: [address] [place], [place] [address] Performed By: #### 5 7021-8 ####[facility] LABCLIA [id number] [address] LABCLIA [id number] [place] [address] [place] MCH (RBC) [Entitic mass] 32.5 pg Normal 26.0-34.0 [facility] Comment on above: Order Comment: Speci men Type: BLOOD SPECIMENOrdering Facility: [facility] Address: [address] [place], [place] [address] Performed By: #### 5 7021-8 ####[facility] LABCLIA [id number] [address] LABCLIA [id number] [place] [address] [place] MCHC (RBC) [Mass/Vol] 31.4 g/dL Normal 30.5-36.0 [facility] Comment on above: Order Comment: Speci men Type: BLOOD SPECIMENOrdering Facility: [facility] Address: [address] [place] [address] Performed By: #### 5 7021-8 ####[facility] LABCLIA [id number] [address] LABCLIA [id number] [place] [address] [place] MCV (RBC) [Entitic vol] 103.6 fL High 80.0-100.0 [facility] Comment on above: Order Comment: Speci men Type: BLOOD SPECIMENOrdering Facility: [facility] Address: [address] [place], [place] [address] Performed By: #### 5 7021-8 ####[facility] LABCLIA [id number] [address] LABCLIA [id number] [place] [address] [place] Neutrophils (Bld) [#/Vol] 0.70 10*3/uL Low 1.45-7.50 [facility] Comment on above: Order Comment: Speci men Type: BLOOD SPECIMENOrdering Facility: [facility] Address: [address] [place], [place] [address] Performed By: #### 5 7021-8 ####[facility] LABCLIA [id number] [address] LABCLIA [id number] [place] [address] [place] Neutrophils/100 WBC (Bld) 38.8 % Normal [facility] Comment on above: Order Comment: Speci men Type: BLOOD SPECIMENOrdering Facility: [facility] Address: [address] [place], [place] [address] Performed By: #### 5 7021-8 ####[facility] LABCLIA [id number] [address] LABCLIA [id number] [place] [address] [place] Nucleated RBC/100 WBC (Bld) [Ratio] 0.0 /100 WBC Normal [facility] Comment on above: Order Comment: Speci men Type: BLOOD SPECIMENOrdering Facility: [facility] Address: [address] [place], [place] [address] Performed By: #### 5 7021-8 ####[facility] LABCLIA [id number] [address] LABCLIA [id number] [place] [address] [place] Ovalocytes LM Ql (Bld) Few Normal [facility] Comment on above: Order Comment: Speci men Type: BLOOD SPECIMENOrdering Facility: [facility] Address: [address] [place], [place] [address] Performed By: #### 5 7021-8 ####[facility] LABCLIA [id number] [address] LABCLIA [id number] [place] [address] [place] PLATELET ESTIMATE Decreased Normal [facility] Comment on above: Order Comment: Speci men Type: BLOOD SPECIMENOrdering Facility: [facility] Address: [address] [place] [address] Performed By: #### 5 7021-8 ####[facility] LABCLIA [id number] [address] LABCLIA [id number] [place] [address] [place] Platelet mean volume (Bld) [Entitic vol] 13.8 fL High 9.0-12.7 [facility] Comment on above: Order Comment: Speci men Type: BLOOD SPECIMENOrdering Facility: [facility] Address: [address] [place] [address] Performed By: #### 5 7021-8 ####[facility] LABCLIA [id number] [address] LABCLIA [id number] [place] [address] [place] Platelets (Bld) [#/Vol] 129 10*3/uL Low 150-400 [facility] Comment on above: Order Comment: Speci men Type: BLOOD SPECIMENOrdering Facility: [facility] Address: [address] [place] [address] Result Comment: Samp le checked for clot Performed By: #### 5 7021-8 ####[facility] LABCLIA [id number] [address] LABCLIA [id number] [place] [address] [place] Polychromasia LM Ql (Bld) Slight Normal [facility] Comment on above: Order Comment: Speci men Type: BLOOD SPECIMENOrdering Facility: [facility] Address: [address] [place] [address] Performed By: #### 5 7021-8 ####[facility] LABCLIA [id number] [address] LABCLIA [id number] [place] [address] [place] RBC (Bld) [#/Vol] 2.49 10*6/uL Low 4.20-6.00 [facility] Comment on above: Order Comment: Speci men Type: BLOOD SPECIMENOrdering Facility: [facility] Address: [address] [place] [address] Performed By: #### 5 7021-8 ####[facility] LABCLIA [id number] [address] LABCLIA [id number] [place] [address] [place] RBC FRAGMENTS Few Abnormal None Seen [facility] Comment on above: Order Comment: Speci men Type: BLOOD SPECIMENOrdering Facility: [facility] Address: [address] [place] [address] Performed By: #### 5 7021-8 ####[facility] LABCLIA [id number] [place] [address] LABCLIA [id number] [place] [address] [place] RED CELL MORPH Reviewed: see result s of individual morphologies Normal [facility] Comment on above: Order Comment: Speci men Type: BLOOD SPECIMENOrdering Facility: [facility] Address: [address] [place] [address] Performed By: #### 5 7021-8 ####[facility] LABCLIA [id number] [address] LABCLIA [id number] [place] [address] [place] Variant lymphocytes/100 WBC (Bld) 0.0 % Normal [facility] Comment on above: Order Comment: Speci men Type: BLOOD SPECIMENOrdering Facility: [facility] Address: [address] [place] [address] Performed By: #### 5 7021-8 ####[facility] LABCLIA [id number] [address] LABCLIA [id number] [place] [address] [place] WAM - ABS BASO 0.05 k/uL Normal <0.11 [facility] Comment on above: Order Comment: Speci men Type: BLOOD SPECIMENOrdering Facility: [facility] Address: [address] [place], [place] [address] Performed By: #### 5 7021-8 ####[facility] LABCLIA [id number] [address] LABCLIA [id number] [place] [address] [place] WAM - ABS MONO 0.24 k/uL Normal <0.87 [facility] Comment on above: Order Comment: Speci men Type: BLOOD SPECIMENOrdering Facility: [facility] Address: [address] [place], [place] [address] Performed By: #### 5 7021-8 ####[facility] LABCLIA [id number] [address] LABCLIA [id number] [place] [address] [place] WAM - MONO% 13.2 % Normal [facility] Comment on above: Order Comment: Speci men Type: BLOOD SPECIMENOrdering Facility: [facility] Address: [address] [place] [address] Performed By: #### 5 7021-8 ####[facility] LABCLIA [id number] [address] LABCLIA [id number] [place] [address] [place] WAM ABSOLUTE NRBC <0.01 Normal <0.01 [facility] Comment on above: Order Comment: Speci men Type: BLOOD SPECIMENOrdering Facility: [facility] Address: [address] [place], [place] [address] Result Comment: This result was previously suppressed from the chart. Performed By: #### 5 7021-8 ####[facility] LABCLIA [id number] [address] LABCLIA [id number] [place] [address] [place] WBC (Bld) [#/Vol] 1.81 10*3/uL Low 3.70-11.00 [facility] Comment on above: Order Comment: Speci men Type: BLOOD SPECIMENOrdering Facility: [facility] Address: [address] [place], [place] [address] Result Comment: Samp le checked for clot Performed By: #### 5 7021-8 ####[facility] LABCLIA [id number] [place], [place] [address] LABCLIA [id number] [facility] [id number] [address] [place] CNOVSPon 04-08-2022 CNOVSP Normal [facility] Comprehensive metabolic 2000 panelon 04-08-2022 Albumin [Mass/Vol] 3.9 g/dL Normal 3.9-4.9 [facility] Comment on above: Order Comment: Speci men Type: BLOOD SPECIMENOrdering Facility: [facility] Address: [address] [place] [address] Performed By: #### 2 532-0, 48036-3 ####[facility] LABIA [id number] [place] [address] ALP [Catalytic activity/Vol] 77 U/L Normal 38-113 [facility] Comment on above: Order Comment: Speci men Type: BLOOD SPECIMENOrdering Facility: [facility] Address: [address] [place] [address] Performed By: #### 2 532-0, 56250-5 ####[facility] LABIA [id number] [place] [address] ALT [Catalytic activity/Vol] 24 U/L Normal 10-54 [facility] Comment on above: Order Comment: Speci men Type: BLOOD SPECIMENOrdering Facility: [facility] Address: [address] [place], [place] [address] Performed By: #### 2 532-0, 67200-8 ####[facility] LABCLIA [id number] [place] [address] Anion gap [Moles/Vol] 7 mmol/L Low 9-18 [facility] Comment on above: Order Comment: Speci men Type: BLOOD SPECIMENOrdering Facility: [facility] Address: [address] [place] [address] Performed By: #### 2 532-0, 21492-9 ####[facility] LABCLIA [id number] [place] [address] AST [Catalytic activity/Vol] 12 U/L Low 14-40 [facility] Comment on above: Order Comment: Speci men Type: BLOOD SPECIMENOrdering Facility: [facility] Address: [address] [place] [address] Performed By: #### 2 532-0, 66833-7 ####[facility] LABIA [id number] [place] [address] Bilirubin [Mass/Vol] 0.7 mg/dL Normal 0.2-1.3 [facility] Comment on above: Order Comment: Speci men Type: BLOOD SPECIMENOrdering Facility: [facility] Address: [address] [place] [address] Performed By: #### 2 532-0, 04891-0 ####[facility] LABIA [id number] [place] [address] Calcium [Mass/Vol] 8.9 mg/dL Normal 8.5-10.2 [facility] Comment on above: Order Comment: Speci men Type: BLOOD SPECIMENOrdering Facility: [facility] Address: [address] [place] [address] Performed By: #### 2 532-0, ####[facility] LABIA [id number] [place] [address] Chloride [Moles/Vol] 106 mmol/L High 97-105 [facility] Comment on above: Order Comment: Speci men Type: BLOOD SPECIMENOrdering Facility: [facility] Address: [address] [place] [address] Performed By: #### 2 532-0, 56513-6 ####[facility] LABIA [id number] [place] [address] CO2 [Moles/Vol] 29 mmol/L Normal 22-30 [facility] Comment on above: Order Comment: Speci men Type: BLOOD SPECIMENOrdering Facility: [facility] Address: [address] Performed By: #### 2 532-0, 83064-1 ####[facility] LABIA [id number] [place] [address] Creatinine [Mass/Vol] 1.84 mg/dL High 0.73-1.22 [facility] Comment on above: Order Comment: Speci men Type: BLOOD SPECIMENOrdering Facility: [facility] Address: [address] [place] [address] Performed By: #### 2 532-0, 80152-5 ####[facility] LABIA [id number] [place] [address] ESTIMATED GLOMERULAR FILTRATION RATE 36 mL/min/1.73m??? Low >=60 [facility] Comment on above: Order Comment: Speci men Type: BLOOD SPECIMENOrdering Facility: [facility] Address: [address] [place] [address] Result Comment: Faye mated Glomerular Filtration Rate [...] actual GFR. Performed By: #### 2 532-0, 53677-3 ####[facility] LABIA [id number] [place] [address] Glucose [Mass/Vol] 221 mg/dL High 74-99 [facility] Comment on above: Order Comment: Speci men Type: BLOOD SPECIMENOrdering Facility: [facility] Address: [address] [place] [address] Result Comment: The [place] [employer] (ADA) provides guidance for cutoff [...] Standards of Medical Care in Diabetes 2016, [place] [employer]. Diabetes Care. 2016.39(Suppl 1). Performed By: #### 2 532-0, ####[facility] LABCLIA [id number] [place] [address] Potassium [Moles/Vol] 4.2 mmol/L Normal 3.7-5.1 [facility] Comment on above: Order Comment: Speci men Type: BLOOD SPECIMENOrdering Facility: [facility] Address: [address] [place] [address] Performed By: #### 2 532-0, ####[facility] LABIA [id number] [place] [address] Protein [Mass/Vol] 5.9 g/dL Low 6.3-8.0 [facility] Comment on above: Order Comment: Speci men Type: BLOOD SPECIMENOrdering Facility: [facility] Address: [address] [place] [address] Performed By: #### 2 532-0, ####[facility] LABCLIA [id number] [place] [address] Sodium [Moles/Vol] 142 mmol/L Normal 136-144 [facility] Comment on above: Order Comment: Speci men Type: BLOOD SPECIMENOrdering Facility: [facility] Address: [address] [place] [address] Performed By: #### 2 532-0, ####[facility] LABCLIA [id number] [place] [address] Urea nitrogen [Mass/Vol] 24 mg/dL Normal 9-24 [facility] Comment on above: Order Comment: Speci men Type: BLOOD SPECIMENOrdering Facility: [facility] Address: [address] [place] [address] Performed By: #### 2 532-0, 44738-8 ####[facility] LABCLIA [id number] [place] [address] LDH SerPl-cCncon 04-08-2022 LDH [Catalytic activity/Vol] 209 U/L Normal 135-225 [facility] Comment on above: Order Comment: Speci men Type: BLOOD SPECIMENOrdering Facility: [facility] Address: [address] [place] [address] Performed By: #### 2 532-0, 03147-0 ####[facility] LABCLIA [id number] [place] [address] PRBC LEUKOREDUCEDon 04-07-20 ABO and Rh group Nom (Bld) Cross Match Result Compatible Unit Blood Type A Pos Unit Number [id number] Status Information Transfused Product ID Red Blood Cells Product Code [id number] Cross Match Result Compatible Unit Blood Type A Pos Unit Number [id number] Status Information Transfused Product ID Red Blood Cells Product Code [id number] Normal [facility] Comment on above: Performed By: #### H H #### [facility] [address] [place] [address] Dr. Benito To CNPNon 04-03-2022 CNPN Normal [facility] HEMOGLOBIN AND HEMATOCRITon 04-03-2022 Hematocrit (Bld) [Volume fraction] 21.8 % Critically low 42.0-54.0 [facility] Comment on above: Performed By: #### H GBHCT #### [facility] [address] [place] [address] [address] Benito To Hemoglobin (Bld) [Mass/Vol] 6.9 g/dL Critically low 14.0-18.0 [facility] Comment on above: Performed By: #### H GBHCT #### [facility] [address] [place], [place] [address] Dr. Benito To TYPE AND SCREENon 04-03-2022 TYPE AND SCREEN Negative Normal [facility] Comment on above: Performed By: #### H H #### [facility] [address] [place] [address] [address] Benito To CBC W Auto Differential pane l (Bld)on 04-02-2022 Basophils (Bld) [#/Vol] 10*3/uL Normal <0.11 [facility] Comment on above: Order Comment: Speci men Type: BLOOD SPECIMENOrdering Facility: [facility] Address: [address] [place] [address] Performed By: #### 5 7021-8 ####[facility] LABCLIA [id number] [place] [address] Basophils/100 WBC (Bld) 0.8 % Normal [facility] Comment on above: Order Comment: Speci men Type: BLOOD SPECIMENOrdering Facility: [facility] Address: [address] [place] [address] Performed By: #### 5 7021-8 ####[facility] LABCLIA [id number] [place] [address] Differential cell count method Nom (Bld) Auto Normal [facility] Comment on above: Order Comment: Speci men Type: BLOOD SPECIMENOrdering Facility: [facility] Address: [address] [place] [address] Performed By: #### 5 7021-8 ####[facility] LABCLIA [id number] [place] [address] Eosinophils (Bld) [#/Vol] 10*3/uL Normal <0.46 [facility] Comment on above: Order Comment: Speci men Type: BLOOD SPECIMENOrdering Facility: [facility] Address: [address] [place] [address] Performed By: #### 5 7021-8 ####[facility] LABCLIA [id number] [place] [address] Eosinophils/100 WBC (Bld) 0.4 % Normal [facility] Comment on above: Order Comment: Speci men Type: BLOOD SPECIMENOrdering Facility: [facility] Address: [address] [place] [address] Performed By: #### 5 7021-8 ####[facility] LABCLIA [id number] [place] [address] Erythrocyte distribution width (RBC) [Ratio] 25.1 % High 11.5-15.0 [facility] Comment on above: Order Comment: Speci men Type: BLOOD SPECIMENOrdering Facility: [facility] Address: [address] [place] [address] Performed By: #### 5 7021-8 ####[facility] LABCLIA [id number] [place] [address] Hematocrit (Bld) [Volume fraction] 22.4 % Low 39.0-51.0 [facility] Comment on above: Order Comment: Speci men Type: BLOOD SPECIMENOrdering Facility: [facility] Address: [address] [place] [address] Performed By: #### 5 7021-8 ####[facility] LABCLIA [id number] [place] [address] Hemoglobin (Bld) [Mass/Vol] 7.0 g/dL Low 13.0-17.0 [facility] Comment on above: Order Comment: Speci men Type: BLOOD SPECIMENOrdering Facility: [facility] Address: [address] [place] [address] Performed By: #### 5 7021-8 ####[facility] LABCLIA [id number] [place] [address] IMMATURE GRAN % 1.2 % Normal [facility] Comment on above: Order Comment: Speci men Type: BLOOD SPECIMENOrdering Facility: [facility] Address: [address] [place] [address] Performed By: #### 5 7021-8 ####[facility] LABCLIA [id number] [place] [address] IMMATURE GRAN ABS 0.03 k/uL Normal <0.10 [facility] Comment on above: Order Comment: Speci men Type: BLOOD SPECIMENOrdering Facility: [facility] Address: [address] [place] [address] Performed By: #### 5 7021-8 ####[facility] LABCLIA [id number] [place] [address] Lymphocytes (Bld) [#/Vol] 0.78 10*3/uL Low 1.00-4.00 [facility] Comment on above: Order Comment: Speci men Type: BLOOD SPECIMENOrdering Facility: [facility] Address: [address] [place] [address] Performed By: #### 5 7021-8 ####[facility] LABIA [id number] [place] [address] Lymphocytes/100 WBC (Bld) 31.6 % Normal [facility] Comment on above: Order Comment: Speci men Type: BLOOD SPECIMENOrdering Facility: [facility] Address: [address] [place] [address] Performed By: #### 5 7021-8 ####[facility] LABCLIA [id number] [place] [address] MCH (RBC) [Entitic mass] 32.7 pg Normal 26.0-34.0 [facility] Comment on above: Order Comment: Speci men Type: BLOOD SPECIMENOrdering Facility: [facility] Address: [address] [place] [address] Performed By: #### 5 7021-8 ####[facility] LABIA [id number] [place] [address] MCHC (RBC) [Mass/Vol] 31.3 g/dL Normal 30.5-36.0 [facility] Comment on above: Order Comment: Speci men Type: BLOOD SPECIMENOrdering Facility: [facility] Address: [address] [place] [address] Performed By: #### 5 7021-8 ####[facility] LABCLIA [id number] [place] [address] MCV (RBC) [Entitic vol] 104.7 fL High 80.0-100.0 [facility] Comment on above: Order Comment: Speci men Type: BLOOD SPECIMENOrdering Facility: [facility] Address: [address] [place] [address] Performed By: #### 5 7021-8 ####[facility] LABCLIA [id number] [place] [address] Monocytes (Bld) [#/Vol] 0.51 10*3/uL Normal <0.87 [facility] Comment on above: Order Comment: Speci men Type: BLOOD SPECIMENOrdering Facility: [facility] Address: [address] [place] [address] Performed By: #### 5 7021-8 ####[facility] LABCLIA [id number] [place] [address] Monocytes/100 WBC (Bld) 20.6 % Normal [facility] Comment on above: Order Comment: Speci men Type: BLOOD SPECIMENOrdering Facility: [facility] Address: [address] [place], [place] [address] Performed By: #### 5 7021-8 ####[facility] LABCLIA [id number] [place] [address] Neutrophils (Bld) [#/Vol] 1.12 10*3/uL Low 1.45-7.50 [facility] Comment on above: Order Comment: Speci men Type: BLOOD SPECIMENOrdering Facility: [facility] Address: [address] [place], [place] [address] Performed By: #### 5 7021-8 ####[facility] LABCLIA [id number] [place] [address] Neutrophils/100 WBC (Bld) 45.4 % Normal [facility] Comment on above: Order Comment: Speci men Type: BLOOD SPECIMENOrdering Facility: [facility] Address: [address] [place] [address] Performed By: #### 5 7021-8 ####[facility] LABCLIA [id number] [place] [address] Nucleated RBC (Bld) [#/Vol] 10*3/uL Normal <0.01 [facility] Comment on above: Order Comment: Speci men Type: BLOOD SPECIMENOrdering Facility: [facility] Address: [address] [place] [address] Performed By: #### 5 7021-8 ####[facility] LABIA [id number] [place] [address] Nucleated RBC/100 WBC (Bld) [Ratio] 0.0 /100 WBC Normal [facility] Comment on above: Order Comment: Speci men Type: BLOOD SPECIMENOrdering Facility: [facility] Address: [address] [place] [address] Performed By: #### 5 7021-8 ####[facility] LABCLIA [id number] [place] [address] Platelet mean volume (Bld) [Entitic vol] 14.2 fL High 9.0-12.7 [facility] Comment on above: Order Comment: Speci men Type: BLOOD SPECIMENOrdering Facility: [facility] Address: [address] [place], [place] [address] Performed By: #### 5 7021-8 ####[facility] LABCLIA [id number] [place] [address] Platelets (Bld) [#/Vol] 63 10*3/uL Low 150-400 [facility] Comment on above: Order Comment: Speci men Type: BLOOD SPECIMENOrdering Facility: [facility] Address: [address] [place] [address] Result Comment: Resu lts checked and verified. Sample checked for clot Performed By: #### 5 7021-8 ####[facility] LABCLIA [id number] [place] [address] RBC (Bld) [#/Vol] 2.14 10*6/uL Low 4.20-6.00 [facility] Comment on above: Order Comment: Speci men Type: BLOOD SPECIMENOrdering Facility: [facility] Address: [address] [place] [address] Performed By: #### 5 7021-8 ####[facility] LABCLIA [id number] [place] [address] WBC (Bld) [#/Vol] 2.47 10*3/uL Low 3.70-11.00 [facility] Comment on above: Order Comment: Speci men Type: BLOOD SPECIMENOrdering Facility: [facility] Address: [address] [place] [address] Performed By: #### 5 7021-8 ####[facility] LABCLIA [id number] [place] [address] CNPNon 04-02-2022 CNPN Normal [facility] Comprehensive metabolic 2000 panelon 04-02-2022 Albumin [Mass/Vol] 3.8 g/dL Low 3.9-4.9 [facility] Comment on above: Order Comment: Speci men Type: BLOOD SPECIMENOrdering Facility: [facility] Address: [address] [place] [address] Performed By: #### 2 4323-8, 2532-0 ####[facility] LABCLIA [id number] [place] [address] ALP [Catalytic activity/Vol] 75 U/L Normal 38-113 [facility] Comment on above: Order Comment: Speci men Type: BLOOD SPECIMENOrdering Facility: [facility] Address: [address] [place], [place] [address] Performed By: #### 2 4323-8, 2531-0 ####[facility] LABCLIA [id number] [place] [address] ALT [Catalytic activity/Vol] 30 U/L Normal 10-54 [facility] Comment on above: Order Comment: Speci men Type: BLOOD SPECIMENOrdering Facility: [facility] Address: [address] [place], [place] [address] Performed By: #### 2 432-8, 2531-0 ####[facility] LABCLIA [id number] [place] [address] Anion gap [Moles/Vol] 9 mmol/L Normal 9-18 [facility] Comment on above: Order Comment: Speci men Type: BLOOD SPECIMENOrdering Facility: [facility] Address: [address] [place] [address] Performed By: #### 2 4323-8, 2531-0 ####[facility] LABCLIA [id number] [place] [address] AST [Catalytic activity/Vol] 14 U/L Normal 14-40 [facility] Comment on above: Order Comment: Speci men Type: BLOOD SPECIMENOrdering Facility: [facility] Address: [address] [place], [place] [address] Performed By: #### 2 4323-8, 2531-0 ####[facility] LABCLIA [id number] [place] [address] Bilirubin [Mass/Vol] 0.7 mg/dL Normal 0.2-1.3 [facility] Comment on above: Order Comment: Speci men Type: BLOOD SPECIMENOrdering Facility: [facility] Address: [address] [place], [place] [address] Performed By: #### 2 4323-8, 2531-0 ####[facility] LABCLIA [id number] [place] [address] Calcium [Mass/Vol] 9.1 mg/dL Normal 8.5-10.2 [facility] Comment on above: Order Comment: Speci men Type: BLOOD SPECIMENOrdering Facility: [facility] Address: [address] [place] [address] Performed By: #### 2 43238, 2531-0 ####[facility] LABCLIA [id number] [place] [address] Chloride [Moles/Vol] 107 mmol/L High 97-105 [facility] Comment on above: Order Comment: Speci men Type: BLOOD SPECIMENOrdering Facility: [facility] Address: [address] [place] [address] Performed By: #### 2 4328, 2531-0 ####[facility] LABCLIA [id number] [place] [address] CO2 [Moles/Vol] 27 mmol/L Normal 22-30 [facility] Comment on above: Order Comment: Speci men Type: BLOOD SPECIMENOrdering Facility: [facility] Address: [address] [place] [address] Performed By: #### 2 4328, 2531-0 ####[facility] LABCLIA [id number] [place] [address] Creatinine [Mass/Vol] 1.72 mg/dL High 0.73-1.22 [facility] Comment on above: Order Comment: Speci men Type: BLOOD SPECIMENOrdering Facility: [facility] Address: [address] [place] [address] Performed By: #### 2 43238, 2531-0 ####[facility] LABCLIA [id number] [place] [address] ESTIMATED GLOMERULAR FILTRATION RATE 39 mL/min/1.73m??? Low >=60 [facility] Comment on above: Order Comment: Davi avendaño Type: BLOOD SPECIMENOrdering Facility: [facility] Address: [address] [id number] Result Comment: Faye mated Glomerular Filtration Rate [...] actual GFR. Performed By: #### 2 4323-8, 2532-0 ####[facility] LABIA [id number] [place] [address] Glucose [Mass/Vol] 190 mg/dL High 74-99 [facility] Comment on above: Order Comment: Davi avendaño Type: BLOOD SPECIMENOrdering Facility: [facility] Address: [address] [place], [place] [address] Result Comment: The [place] [employer] (ADA) provides guidance for cutoff [...] Standards of Medical Care in Diabetes 2016, [place] [employer]. Diabetes Care. 2016.39(Suppl 1). Performed By: #### 2 4323-8, 2531-0 ####[facility] LABIA [id number] [place] [address] Potassium [Moles/Vol] 4.3 mmol/L Normal 3.7-5.1 [facility] Comment on above: Order Comment: Davi avendaño Type: BLOOD SPECIMENOrdering Facility: [facility] Address: [address] [place] [address] Performed By: #### 2 4323-8, 2531-0 ####[facility] LABCLIA [id number] [place] [address] Protein [Mass/Vol] 5.7 g/dL Low 6.3-8.0 [facility] Comment on above: Order Comment: Speci men Type: BLOOD SPECIMENOrdering Facility: [facility] Address: [address] [place] [address] Performed By: #### 2 432-8, 2531-0 ####[facility] LABCLIA [id number] [place] [address] Sodium [Moles/Vol] 143 mmol/L Normal 136-144 [facility] Comment on above: Order Comment: Speci men Type: BLOOD SPECIMENOrdering Facility: [facility] Address: [address] [place] [address] Performed By: #### 2 432-8, 2531-0 ####[facility] LABCLIA [id number] [place] [address] Urea nitrogen [Mass/Vol] 25 mg/dL High 9-24 [facility] Comment on above: Order Comment: Speci men Type: BLOOD SPECIMENOrdering Facility: [facility] Address: [address] [place] [address] Performed By: #### 2 4328, 2531-0 ####[facility] LABCLIA [id number] [place] [address] LDH SerPl-cCncon 04-02-2022 LDH [Catalytic activity/Vol] 202 U/L Normal 135-225 [facility] Comment on above: Order Comment: Speci men Type: BLOOD SPECIMENOrdering Facility: [facility] Address: [address] [place] [address] Performed By: #### 2 4323-8, 2-0 ####[facility] LABCLIA [id number] [place] [address] CBC W Auto Differential pane l (Bld)on 03-25-2022 Anisocytosis Ql (Bld) Present Normal [facility] Comment on above: Order Comment: Speci men Type: BLOOD SPECIMENOrdering Facility: [facility] Address: [address] [place] [address] Performed By: #### 5 7021-8 ####[facility] LABCLIA [id number] [address] LABCLIA [id number] [place] [address] [place] Band form neutrophils/100 WBC (Bld) 0.0 % Normal [facility] Comment on above: Order Comment: Speci men Type: BLOOD SPECIMENOrdering Facility: [facility] Address: [address] [place] [address] Performed By: #### 5 7021-8 ####[facility] LABCLIA [id number] [address] LABCLIA [id number] [address] [place] Basophils/100 WBC (Bld) 1.8 % Normal [facility] Comment on above: Order Comment: Speci men Type: BLOOD SPECIMENOrdering Facility: [facility] Address: [address] [place] [address] Performed By: #### 5 7021-8 ####[facility] LABCLIA [id number] [address] LABCLIA [id number] [place] [address] [place] Differential cell count method Nom (Bld) Manual Normal [facility] Comment on above: Order Comment: Speci men Type: BLOOD SPECIMENOrdering Facility: [facility] Address: [address] [place], [place] [address] Performed By: #### 5 7021-8 ####[facility] LABCLIA [id number] [address] LABCLIA [id number] [place] [address] [place] Eosinophils (Bld) [#/Vol] 0.00 10*3/uL Normal <0.46 [facility] Comment on above: Order Comment: Speci men Type: BLOOD SPECIMENOrdering Facility: [facility] Address: [address] Performed By: #### 5 7021-8 ####[facility] LABCLIA [id number] [address] LABCLIA [id number] [place] [address] [place] Eosinophils/100 WBC (Bld) 0.0 % Normal [facility] Comment on above: Order Comment: Speci men Type: BLOOD SPECIMENOrdering Facility: [facility] Address: [address] Performed By: #### 5 7021-8 ####[facility] LABCLIA [id number] [address] LABCLIA [id number] [place] [address] [place] Erythrocyte distribution width (RBC) [Ratio] 24.5 % High 11.5-15.0 [facility] Comment on above: Order Comment: Speci men Type: BLOOD SPECIMENOrdering Facility: [facility] Address: [address] [place] [address] Performed By: #### 5 7021-8 ####[facility] LABCLIA [id number] [address] LABCLIA [id number] [place] [address] [place] Hematocrit (Bld) [Volume fraction] 26.0 % Low 39.0-51.0 [facility] Comment on above: Order Comment: Speci men Type: BLOOD SPECIMENOrdering Facility: [facility] Address: [address] [place] [address] Performed By: #### 5 7021-8 ####[facility] LABCLIA [id number] [address] LABCLIA [id number] [place] [address] [place] Hemoglobin (Bld) [Mass/Vol] 8.2 g/dL Low 13.0-17.0 [facility] Comment on above: Order Comment: Speci men Type: BLOOD SPECIMENOrdering Facility: [facility] Address: [address] [place] [address] Performed By: #### 5 7021-8 ####[facility] LABCLIA [id number] [address] LABCLIA [id number] [place] [address] [place] Lymphocytes (Bld) [#/Vol] 1.18 10*3/uL Normal 1.00-4.00 [facility] Comment on above: Order Comment: Speci men Type: BLOOD SPECIMENOrdering Facility: [facility] Address: [address] [place], [place] [address] Performed By: #### 5 7021-8 ####[facility] LABCLIA [id number] [address] LABCLIA [id number] [place] [address] [place] Lymphocytes/100 WBC (Bld) 43.2 % Normal [facility] Comment on above: Order Comment: Speci men Type: BLOOD SPECIMENOrdering Facility: [facility] Address: [address] [place], [place] [address] Performed By: #### 5 7021-8 ####[facility] LABCLIA [id number] [address] LABCLIA [id number] [address] [place] MCH (RBC) [Entitic mass] 32.7 pg Normal 26.0-34.0 [facility] Comment on above: Order Comment: Speci men Type: BLOOD SPECIMENOrdering Facility: [facility] Address: [address] [place] [address] Performed By: #### 5 7021-8 ####[facility] LABCLIA [id number] [address] LABCLIA [id number] [address] [place] MCHC (RBC) [Mass/Vol] 31.5 g/dL Normal 30.5-36.0 [facility] Comment on above: Order Comment: Speci men Type: BLOOD SPECIMENOrdering Facility: [facility] Address: [address] [place] [address] Performed By: #### 5 7021-8 ####[facility] LABCLIA [id number] [address] LABCLIA [id number] [place] [address] [place] MCV (RBC) [Entitic vol] 103.6 fL High 80.0-100.0 [facility] Comment on above: Order Comment: Speci men Type: BLOOD SPECIMENOrdering Facility: [facility] Address: [address] [place], [place] [address] Performed By: #### 5 7021-8 ####[facility] LABCLIA [id number] [address] LABCLIA [id number] [place] [address] [place] Neutrophils (Bld) [#/Vol] 1.35 10*3/uL Low 1.45-7.50 [facility] Comment on above: Order Comment: Speci men Type: BLOOD SPECIMENOrdering Facility: [facility] Address: [address] [place] [address] Performed By: #### 5 7021-8 ####[facility] LABCLIA [id number] [address] LABCLIA [id number] [place] [address] [place] Neutrophils/100 WBC (Bld) 49.6 % Normal [facility] Comment on above: Order Comment: Speci men Type: BLOOD SPECIMENOrdering Facility: [facility] Address: [address] [place] [address] Performed By: #### 5 7021-8 ####[facility] LABCLIA [id number] [address] LABCLIA [id number] [place] [address] [place] Nucleated RBC/100 WBC (Bld) [Ratio] 0.0 /100 WBC Normal [facility] Comment on above: Order Comment: Speci men Type: BLOOD SPECIMENOrdering Facility: [facility] Address: [address] [place], [place] [address] Performed By: #### 5 7021-8 ####[facility] LABCLIA [id number] [address] LABCLIA [id number] [place] [address] [place] Ovalocytes LM Ql (Bld) Few Normal [facility] Comment on above: Order Comment: Speci men Type: BLOOD SPECIMENOrdering Facility: [facility] Address: [address] [place], [place] [address] Performed By: #### 5 7021-8 ####[facility] LABCLIA [id number] [address] LABCLIA [id number] [place] [address] [place] PLATELET ESTIMATE Decreased Normal [facility] Comment on above: Order Comment: Speci men Type: BLOOD SPECIMENOrdering Facility: [facility] Address: [address] [place] [address] Performed By: #### 5 7021-8 ####[facility] LABCLIA [id number] [address] LABCLIA [id number] [place] [address] [place] Platelet mean volume (Bld) [Entitic vol] 14.5 fL High 9.0-12.7 [facility] Comment on above: Order Comment: Speci men Type: BLOOD SPECIMENOrdering Facility: [facility] Address: [address] [place] [address] Performed By: #### 5 7021-8 ####[facility] LABCLIA [id number] [address] LABCLIA [id number] [place] [address] [place] Platelets (Bld) [#/Vol] 64 10*3/uL Low 150-400 [facility] Comment on above: Order Comment: Speci men Type: BLOOD SPECIMENOrdering Facility: [facility] Address: [address] [place] [address] Result Comment: Samp le checked for clot Performed By: #### 5 7021-8 ####[facility] LABCLIA [id number] [address] LABCLIA [id number] [place] [address] [place] Platelets agranular LM Ql (Bld) Present Normal [facility] Comment on above: Order Comment: Speci men Type: BLOOD SPECIMENOrdering Facility: [facility] Address: [address] [place] [address] Performed By: #### 5 7021-8 ####[facility] LABCLIA [id number] [address] LABCLIA [id number] [place] [address] [place] Polychromasia LM Ql (Bld) Slight Normal [facility] Comment on above: Order Comment: Speci men Type: BLOOD SPECIMENOrdering Facility: [facility] Address: [address] [place] [address] Performed By: #### 5 7021-8 ####[facility] LABCLIA [id number] [address] LABCLIA [id number] [place] [address] [place] RBC (Bld) [#/Vol] 2.51 10*6/uL Low 4.20-6.00 [facility] Comment on above: Order Comment: Speci men Type: BLOOD SPECIMENOrdering Facility: [facility] Address: [address] [place], [place] [address] Performed By: #### 5 7021-8 ####[facility] LABCLIA [id number] [address] LABCLIA [id number] [place] [address] [place] RBC FRAGMENTS Few Abnormal None Seen [facility] Comment on above: Order Comment: Speci men Type: BLOOD SPECIMENOrdering Facility: [facility] Address: [address] [place], [place] [address] Performed By: #### 5 7021-8 ####[facility] LABCLIA [id number] [place] [address] LABCLIA [id number] [place] [address] [place] RED CELL MORPH Reviewed: see result s of individual morphologies Normal [facility] Comment on above: Order Comment: Speci men Type: BLOOD SPECIMENOrdering Facility: [facility] Address: [address] [place] [address] Performed By: #### 5 7021-8 ####[facility] LABCLIA [id number] [address] LABCLIA [id number] [place] [address] [place] Variant lymphocytes/100 WBC (Bld) 0.0 % Normal [facility] Comment on above: Order Comment: Speci men Type: BLOOD SPECIMENOrdering Facility: [facility] Address: [address] [place] [address] Performed By: #### 5 7021-8 ####[facility] LABCLIA [id number] [address] LABCLIA [id number] [place] [address] [place] WAM - ABS BASO 0.05 k/uL Normal <0.11 [facility] Comment on above: Order Comment: Speci men Type: BLOOD SPECIMENOrdering Facility: [facility] Address: [address] [place] [address] Performed By: #### 5 7021-8 ####[facility] LABCLIA [id number] [address] LABCLIA [id number] [place] [address] [place] WAM - ABS MONO 0.15 k/uL Normal <0.87 [facility] Comment on above: Order Comment: Speci men Type: BLOOD SPECIMENOrdering Facility: [facility] Address: [address] [place] [address] Performed By: #### 5 7021-8 ####[facility] LABCLIA [id number] [address] LABCLIA [id number] [place] [address] [place] WAM - MONO% 5.4 % Normal [facility] Comment on above: Order Comment: Speci men Type: BLOOD SPECIMENOrdering Facility: [facility] Address: [address] [place] [address] Performed By: #### 5 7021-8 ####[facility] LABCLIA [id number] [address] LABCLIA [id number] [place] [address] [place] WAM ABSOLUTE NRBC <0.01 Normal <0.01 [facility] Comment on above: Order Comment: Speci men Type: BLOOD SPECIMENOrdering Facility: [facility] Address: [address] [place] [address] Performed By: #### 5 7021-8 ####[facility] LABCLIA [id number] [address] LABCLIA [id number] [place] [address] [place] WBC (Bld) [#/Vol] 2.72 10*3/uL Low 3.70-11.00 [facility] Comment on above: Order Comment: Speci men Type: BLOOD SPECIMENOrdering Facility: [facility] Address: [address] [place] [address] Performed By: #### 5 7021-8 ####[facility] LABCLIA [id number] [address] LABCLIA [id number] [id number] [id number] [place] Comprehensive metabolic 2000 panelon 03-25-2022 Albumin [Mass/Vol] 3.9 g/dL Normal 3.9-4.9 [facility] Comment on above: Order Comment: Speci men Type: BLOOD SPECIMENOrdering Facility: [facility] Address: [address] [place] [address] Performed By: #### 2 4323-8, 253-0 ####[facility] LABCLIA [id number] [place] [address] ALP [Catalytic activity/Vol] 69 U/L Normal 38-113 [facility] Comment on above: Order Comment: Speci men Type: BLOOD SPECIMENOrdering Facility: [facility] Address: [address] [place] [address] Performed By: #### 2 4323-8, 2531-0 ####[facility] LABIA [id number] [place] [address] ALT [Catalytic activity/Vol] 40 U/L Normal 10-54 [facility] Comment on above: Order Comment: Speci men Type: BLOOD SPECIMENOrdering Facility: [facility] Address: [address] [place] [address] Performed By: #### 2 4323-8, 2531-0 ####[facility] LABCLIA [id number] [place] [address] Anion gap [Moles/Vol] 11 mmol/L Normal 9-18 [facility] Comment on above: Order Comment: Speci men Type: BLOOD SPECIMENOrdering Facility: [facility] Address: [address] [place], [place] [address] Performed By: #### 2 4323-8, 2532-0 ####[facility] LABIA [id number] [place] [address] AST [Catalytic activity/Vol] 17 U/L Normal 14-40 [facility] Comment on above: Order Comment: Speci men Type: BLOOD SPECIMENOrdering Facility: [facility] Address: [address] [place], [place] [address] Performed By: #### 2 4323-8, 2531-0 ####[facility] LABCLIA [id number] [place] [address] Bilirubin [Mass/Vol] 0.6 mg/dL Normal 0.2-1.3 [facility] Comment on above: Order Comment: Speci men Type: BLOOD SPECIMENOrdering Facility: [facility] Address: [address] [place], [place] [address] Performed By: #### 2 432-8, 2531-0 ####[facility] LABIA [id number] [place] [address] Calcium [Mass/Vol] 8.9 mg/dL Normal 8.5-10.2 [facility] Comment on above: Order Comment: Speci men Type: BLOOD SPECIMENOrdering Facility: [facility] Address: [address] [place], [place] [address] Performed By: #### 2 43238, 2531-0 ####[facility] LABCLIA [id number] [place] [address] Chloride [Moles/Vol] 104 mmol/L Normal 97-105 [facility] Comment on above: Order Comment: Speci men Type: BLOOD SPECIMENOrdering Facility: [facility] Address: [address] [place], [place] [address] Performed By: #### 2 4323-8, 2531-0 ####[facility] LABIA [id number] [place] [address] CO2 [Moles/Vol] 29 mmol/L Normal 22-30 [facility] Comment on above: Order Comment: Speci men Type: BLOOD SPECIMENOrdering Facility: [facility] Address: [address] [place], [place] [address] Performed By: #### 2 4323-8, 2532-0 ####[facility] LABCLIA [id number] [place] [address] Creatinine [Mass/Vol] 1.89 mg/dL High 0.73-1.22 [facility] Comment on above: Order Comment: Speci men Type: BLOOD SPECIMENOrdering Facility: [facility] Address: [address] [place], [place] [address] Performed By: #### 2 4323-8, 2532-0 ####[facility] LABCLIA [id number] [place] [address] ESTIMATED GLOMERULAR FILTRATION RATE 35 mL/min/1.73m??? Low >=60 [facility] Comment on above: Order Comment: Davi avendaño Type: BLOOD SPECIMENOrdering Facility: [facility] Address: [address] [place] [address] Result Comment: Faye mated Glomerular Filtration Rate [...] actual GFR. Performed By: #### 2 4323-8, 2-0 ####[facility] LABCLIA [id number] [place] [address] Glucose [Mass/Vol] 214 mg/dL High 74-99 [facility] Comment on above: Order Comment: Speci [facility] Type: BLOOD SPECIMENOrdering Facility: [facility] Address: [address] [place], [place] [address] Result Comment: The [place] [employer] (ADA) provides guidance for cutoff [...] Standards of Medical Care in Diabetes 2016, [place] [employer]. Diabetes Care. 2016.39(Suppl 1). Performed By: #### 2 4323-8, 2531-0 ####[facility] LABCLIA [id number] [place] [address] Potassium [Moles/Vol] 4.1 mmol/L Normal 3.7-5.1 [facility] Comment on above: Order Comment: Speci men Type: BLOOD SPECIMENOrdering Facility: [facility] Address: [address] [place] [address] Performed By: #### 2 43238, 2531-0 ####[facility] LABIA [id number] [place] [address] Protein [Mass/Vol] 5.9 g/dL Low 6.3-8.0 [facility] Comment on above: Order Comment: Speci men Type: BLOOD SPECIMENOrdering Facility: [facility] Address: [address] [place] [address] Performed By: #### 2 43238, 2531-0 ####[facility] LABCLIA [id number] [place] [address] Sodium [Moles/Vol] 144 mmol/L Normal 136-144 [facility] Comment on above: Order Comment: Speci men Type: BLOOD SPECIMENOrdering Facility: [facility] Address: [address] [place] [address] Performed By: #### 2 43238, 2531-0 ####[facility] LABCLIA [id number] [place] [address] Urea nitrogen [Mass/Vol] 25 mg/dL High 9-24 [facility] Comment on above: Order Comment: Speci men Type: BLOOD SPECIMENOrdering Facility: [facility] Address: [address] [place], [place] [address] Performed By: #### 2 4323-8, 253-0 ####[facility] LABCLIA [id number] [place] [address] LDH SerPl-cCncon 03-25-2022 LDH [Catalytic activity/Vol] 230 U/L High 135-225 [facility] Comment on above: Order Comment: Speci men Type: BLOOD SPECIMENOrdering Facility: [facility] Address: [address] [place], [place] [address] Performed By: #### 2 4323-8, 253-0 ####[facility] LABCLIA [id number] [place] [address] CNPNon 03-19-2022 CNPN Normal [facility] CBC W Auto Differential pane l (Bld)on 03-18-2022 Anisocytosis Ql (Bld) Present Normal [facility] Comment on above: Order Comment: Speci men Type: BLOOD SPECIMENOrdering Facility: [facility] Address: [address] [place], [place] [address] Performed By: #### 5 7021-8 ####[facility] LABCLIA [id number] [place] [address] [facility] LABCLIA [id number] [place] [address] Basophils/100 WBC (Bld) 0.0 % Normal [facility] Comment on above: Order Comment: Speci men Type: BLOOD SPECIMENOrdering Facility: [facility] Address: [address] [place], [place] [address] Performed By: #### 5 7021-8 ####[facility] LABCLIA [id number] [place] [address] [facility] LABCLIA [id number] [place] [address] Differential cell count method Nom (Bld) Manual Normal [facility] Comment on above: Order Comment: Speci men Type: BLOOD SPECIMENOrdering Facility: [facility] Address: [address] [place] [address] Performed By: #### 5 7021-8 ####[facility] LABCLIA [id number] [address] LABCLIA [id number] [place] [address] Eosinophils (Bld) [#/Vol] 0.00 10*3/uL Normal <0.46 [facility] Comment on above: Order Comment: Speci men Type: BLOOD SPECIMENOrdering Facility: [facility] Address: [address] [place] [address] Performed By: #### 5 7021-8 ####[facility] LABCLIA [id number] [address] LABCLIA [id number] [place] [address] Eosinophils/100 WBC (Bld) 0.0 % Normal [facility] Comment on above: Order Comment: Speci men Type: BLOOD SPECIMENOrdering Facility: [facility] Address: [address] [place] [address] Performed By: #### 5 7021-8 ####[facility] LABCLIA [id number] [address] LABCLIA [id number] [place] [address] Erythrocyte distribution width (RBC) [Ratio] 24.4 % High 11.5-15.0 [facility] Comment on above: Order Comment: Speci men Type: BLOOD SPECIMENOrdering Facility: [facility] Address: [address] [place], [place] [address] Performed By: #### 5 7021-8 ####[facility] LABCLIA [id number] [address] [address] [facility] LABCLIA [id number] [place] [address] Giant platelets LM Ql (Bld) Occasional Normal [facility] Comment on above: Order Comment: Speci men Type: BLOOD SPECIMENOrdering Facility: [facility] Address: [address] [place] [address] Performed By: #### 5 7021-8 ####[facility] LABCLIA [id number] [address] LABCLIA [id number] [place] [address] Hematocrit (Bld) [Volume fraction] 29.4 % Low 39.0-51.0 [facility] Comment on above: Order Comment: Speci men Type: BLOOD SPECIMENOrdering Facility: [facility] Address: [address] [place] [address] Performed By: #### 5 7021-8 ####[facility] LABCLIA [id number] [address] LABCLIA [id number] [place] [address] Hemoglobin (Bld) [Mass/Vol] 9.3 g/dL Low 13.0-17.0 [facility] Comment on above: Order Comment: Speci men Type: BLOOD SPECIMENOrdering Facility: [facility] Address: [address] [place] [address] Performed By: #### 5 7021-8 ####[facility] LABCLIA [id number] [address] LABCLIA [id number] [place] [address] Lymphocytes (Bld) [#/Vol] 0.83 10*3/uL Low 1.00-4.00 [facility] Comment on above: Order Comment: Speci men Type: BLOOD SPECIMENOrdering Facility: [facility] Address: [address] [place] [address] Performed By: #### 5 7021-8 ####[facility] LABCLIA [id number] [address] LABIA [id number] [place] [address] Lymphocytes/100 WBC (Bld) 24.8 % Normal [facility] Comment on above: Order Comment: Speci men Type: BLOOD SPECIMENOrdering Facility: [facility] Address: [address] [place] [address] Performed By: #### 5 7021-8 ####[facility] LABCLIA [id number] [address] LABCLIA [id number] [place] [address] MCH (RBC) [Entitic mass] 32.2 pg Normal 26.0-34.0 [facility] Comment on above: Order Comment: Speci men Type: BLOOD SPECIMENOrdering Facility: [facility] Address: [address] [place] [address] Performed By: #### 5 7021-8 ####[facility] LABCLIA [id number] [address] LABCLIA [id number] [place] [address] MCHC (RBC) [Mass/Vol] 31.6 g/dL Normal 30.5-36.0 [facility] Comment on above: Order Comment: Speci men Type: BLOOD SPECIMENOrdering Facility: [facility] Address: [address] [place], [place] [address] Performed By: #### 5 7021-8 ####[facility] LABCLIA [id number] [place] [address] [facility] LABCLIA [id number] [place] [address] MCV (RBC) [Entitic vol] 101.7 fL High 80.0-100.0 [facility] Comment on above: Order Comment: Speci men Type: BLOOD SPECIMENOrdering Facility: [facility] Address: [address] [place], [place] [address] Performed By: #### 5 7021-8 ####[facility] LABCLIA [id number] [address] LABCLIA [id number] [place] [address] Metamyelocytes/100 WBC (Bld) 1.8 % Normal [facility] Comment on above: Order Comment: Speci men Type: BLOOD SPECIMENOrdering Facility: [facility] Address: [address] [place] [address] Performed By: #### 5 7021-8 ####[facility] LABCLIA [id number] [address] LABCLIA [id number] [place] [address] MYELO% 2.7 % Normal [facility] Comment on above: Order Comment: Speci men Type: BLOOD SPECIMENOrdering Facility: [facility] Address: [address] [place] [address] Performed By: #### 5 7021-8 ####[facility] LABCLIA [id number] [place] [address] [facility] LABCLIA [id number] [place] [address] Neutrophils (Bld) [#/Vol] 2.17 10*3/uL Normal 1.45-7.50 [facility] Comment on above: Order Comment: Speci men Type: BLOOD SPECIMENOrdering Facility: [facility] Address: [address] [place], [place] [address] Performed By: #### 5 7021-8 ####[facility] LABCLIA [id number] [address] LABCLIA [id number] [place] [address] Neutrophils/100 WBC (Bld) 64.5 % Normal [facility] Comment on above: Order Comment: Speci men Type: BLOOD SPECIMENOrdering Facility: [facility] Address: [address] [place], [place] [address] Performed By: #### 5 7021-8 ####[facility] LABCLIA [id number] [address] LABCLIA [id number] [place] [address] Nucleated RBC/100 WBC (Bld) [Ratio] 1.8 /100 WBC Normal [facility] Comment on above: Order Comment: Speci men Type: BLOOD SPECIMENOrdering Facility: [facility] Address: [address] [place] [address] Performed By: #### 5 7021-8 ####[facility] LABCLIA [id number] [address] LABCLIA [id number] [place] [address] Ovalocytes LM Ql (Bld) Few Normal [facility] Comment on above: Order Comment: Speci men Type: BLOOD SPECIMENOrdering Facility: [facility] Address: [address] [place] [address] Performed By: #### 5 7021-8 ####[facility] LABCLIA [id number] [address] LABCLIA [id number] [place] [address] PLATELET ESTIMATE Decreased Normal [facility] Comment on above: Order Comment: Speci men Type: BLOOD SPECIMENOrdering Facility: [facility] Address: [address] [place] [address] Performed By: #### 5 7021-8 ####[facility] LABCLIA [id number] [address] LABCLIA [id number] [place] [address] Platelet mean volume (Bld) [Entitic vol] Normal [facility] Comment on above: Order Comment: Speci men Type: BLOOD SPECIMENOrdering Facility: [facility] Address: [address] [place] [address] Result Comment: Unab le to Report. Performed By: #### 5 7021-8 ####[facility] LABCLIA [id number] [address] LABCLIA [id number] [place] [address] Platelets (Bld) [#/Vol] 124 10*3/uL Low 150-400 [facility] Comment on above: Order Comment: Speci men Type: BLOOD SPECIMENOrdering Facility: [facility] Address: [address] [place] [address] Performed By: #### 5 7021-8 ####[facility] LABCLIA [id number] [address] LABCLIA [id number] [place] [address] Polychromasia LM Ql (Bld) Slight Normal [facility] Comment on above: Order Comment: Speci men Type: BLOOD SPECIMENOrdering Facility: [facility] Address: [address] [place] [address] Performed By: #### 5 7021-8 ####[facility] LABCLIA [id number] [address] [address] [facility] LABCLIA [id number] [place] [address] RBC (Bld) [#/Vol] 2.89 10*6/uL Low 4.20-6.00 [facility] Comment on above: Order Comment: Speci men Type: BLOOD SPECIMENOrdering Facility: [facility] Address: [address] [place] [address] Performed By: #### 5 7021-8 ####[facility] LABCLIA [id number] [address] LABCLIA [id number] [place] [address] RBC FRAGMENTS Few Abnormal None Seen [facility] Comment on above: Order Comment: Speci men Type: BLOOD SPECIMENOrdering Facility: [facility] Address: [address] [place] [address] Performed By: #### 5 7021-8 ####[facility] LABCLIA [id number] [place] [address] [facility] LABCLIA [id number] [place] [address] RED CELL MORPH Reviewed: see result s of individual morphologies Normal [facility] Comment on above: Order Comment: Speci men Type: BLOOD SPECIMENOrdering Facility: [facility] Address: [address] [place], [place] [address] Performed By: #### 5 7021-8 ####[facility] LABCLIA [id number] [address] [address] [facility] LABCLIA [id number] [place] [address] Variant lymphocytes/100 WBC (Bld) 0.0 % Normal [facility] Comment on above: Order Comment: Speci men Type: BLOOD SPECIMENOrdering Facility: [facility] Address: [address] [place] [address] Performed By: #### 5 7021-8 ####[facility] LABCLIA [id number] [address] LABCLIA [id number] [place] [id number] WAM - ABS BASO 0.00 k/uL Normal <0.11 [facility] Comment on above: Order Comment: Speci men Type: BLOOD SPECIMENOrdering Facility: [facility] Address: [address] [place] [address] Performed By: #### 5 7021-8 ####[facility] LABCLIA [id number] [address] LABCLIA [id number] [place] [id number] WAM - ABS MONO 0.21 k/uL Normal <0.87 [facility] Comment on above: Order Comment: Speci men Type: BLOOD SPECIMENOrdering Facility: [facility] Address: [address] [place] [address] Performed By: #### 5 7021-8 ####[facility] LABCLIA [id number] [address] LABCLIA [id number] [place] [id number] WAM - MONO% 6.2 % Normal [facility] Comment on above: Order Comment: Speci men Type: BLOOD SPECIMENOrdering Facility: [facility] Address: [address] [place], [place] [address] Performed By: #### 5 7021-8 ####[facility] LABCLIA [id number] [address] [address] [facility] LABCLIA [id number] [place] [address] WAM ABSOLUTE NRBC 0.06 k/uL High <0.01 [facility] Comment on above: Order Comment: Speci men Type: BLOOD SPECIMENOrdering Facility: [facility] Address: [address] [place] [address] Result Comment: This result was previously suppressed from the chart. Performed By: #### 5 7021-8 ####[facility] LABCLIA [id number] [address] LABCLIA [id number] [place] [address] WBC (Bld) [#/Vol] 3.36 10*3/uL Low 3.70-11.00 [facility] Comment on above: Order Comment: Speci men Type: BLOOD SPECIMENOrdering Facility: [facility] Address: [address] [place] [address] Performed By: #### 5 7021-8 ####[facility] LABCLIA [id number] [address] LABCLIA [id number] [place] [address] WBC Left Shift Ql (Bld) Present Normal [facility] Comment on above: Order Comment: Speci men Type: BLOOD SPECIMENOrdering Facility: [facility] Address: [address] [place], [place] [address] Performed By: #### 5 7021-8 ####[facility] LABCLIA [id number] [place] [address] [facility] LABCLIA [id number] [place] [address] CNPNon 08-22-2022 CNPN Normal [facility] metabolic 2000 panelon 03-18-2022 Albumin [Mass/Vol] 3.8 g/dL Low 3.9-4.9 [facility] Comment on above: Order Comment: Speci men Type: BLOOD SPECIMENOrdering Facility: [facility] Address: [address] [place] [address] Performed By: #### 2 4323-8, 2532-0 ####[facility] LABCLIA [id number] [place] [address] ALP [Catalytic activity/Vol] 67 U/L Normal 38-113 [facility] Comment on above: Order Comment: Speci men Type: BLOOD SPECIMENOrdering Facility: [facility] Address: [address] [place] [address] Performed By: #### 2 4323-8, 2532-0 ####[facility] LABIA [id number] [place] [address] ALT [Catalytic activity/Vol] 57 U/L High 10-54 [facility] Comment on above: Order Comment: Speci men Type: BLOOD SPECIMENOrdering Facility: [facility] Address: [address] [place] [address] Performed By: #### 2 4323-8, 2532-0 ####[facility] LABIA [id number] [place] [address] Anion gap [Moles/Vol] 9 mmol/L Normal 9-18 [facility] Comment on above: Order Comment: Speci men Type: BLOOD SPECIMENOrdering Facility: [facility] Address: [address] [place] [address] Performed By: #### 2 4323-8, 2532-0 ####[facility] LABIA [id number] [place] [address] AST [Catalytic activity/Vol] 21 U/L Normal 14-40 [facility] Comment on above: Order Comment: Speci men Type: BLOOD SPECIMENOrdering Facility: [facility] Address: [address] [place], [place] [address] Performed By: #### 2 432-8, 2531-0 ####[facility] LABCLIA [id number] [place] [address] Bilirubin [Mass/Vol] 0.8 mg/dL Normal 0.2-1.3 [facility] Comment on above: Order Comment: Speci men Type: BLOOD SPECIMENOrdering Facility: [facility] Address: [address] [place] [address] Performed By: #### 2 4328, 2531-0 ####[facility] LABCLIA [id number] [place] [address] Calcium [Mass/Vol] 9.0 mg/dL Normal 8.5-10.2 [facility] Comment on above: Order Comment: Speci men Type: BLOOD SPECIMENOrdering Facility: [facility] Address: [address] [place] [address] Performed By: #### 2 4328, 2531-0 ####[facility] LABIA [id number] [place] [address] Chloride [Moles/Vol] 102 mmol/L Normal 97-105 [facility] Comment on above: Order Comment: Speci men Type: BLOOD SPECIMENOrdering Facility: [facility] Address: [address] [place] [place], [place] [address] Performed By: #### 2 4328, 2531-0 ####[facility] LABCLIA [id number] [place] [address] CO2 [Moles/Vol] 33 mmol/L High 22-30 [facility] Comment on above: Order Comment: Speci men Type: BLOOD SPECIMENOrdering Facility: [facility] Address: [address] [place], [place] [address] Performed By: #### 2 4328, 2531-0 ####[facility] LABCLIA [id number] [place] [address] Creatinine [Mass/Vol] 1.91 mg/dL High 0.73-1.22 [facility] Comment on above: Order Comment: Davi avendaño Type: BLOOD SPECIMENOrdering Facility: [facility] Address: [address] [place], [place] [address] Performed By: #### 2 4323-8, 2531-0 ####[facility] LABCLIA [id number] [place] [address] ESTIMATED GLOMERULAR FILTRATION RATE 34 mL/min/1.73m??? Low >=60 [facility] Comment on above: Order Comment: Davi avendaño Type: BLOOD SPECIMENOrdering Facility: [facility] Address: [address] [place] [address] Result Comment: Faye mated Glomerular Filtration Rate [...] GFR. Performed By: #### 2 4323-8, 2531-0 ####[facility] LABCLIA [id number] [place] [address] Glucose [Mass/Vol] 261 mg/dL High 74-99 [facility] Comment on above: Order Comment: Davi avendaño Type: BLOOD SPECIMENOrdering Facility: [facility] Address: [address] [place] [address] Result Comment: The [place] [employer] (ADA) provides guidance for cutoff [...] Standards of Medical Care in Diabetes 2016, [place] [employer]. Diabetes Care. 2016.39(Suppl 1). Performed By: #### 2 4323-8, 0 ####[facility] LABCLIA [id number] [place] [address] Potassium [Moles/Vol] 3.6 mmol/L Low 3.7-5.1 [facility] Comment on above: Order Comment: Speci men Type: BLOOD SPECIMENOrdering Facility: [facility] Address: [address] [place], [place] [address] Performed By: #### 2 4328, 0 ####[facility] LABCLIA [id number] [place] [address] Protein [Mass/Vol] 5.8 g/dL Low 6.3-8.0 [facility] Comment on above: Order Comment: Speci men Type: BLOOD SPECIMENOrdering Facility: [facility] Address: [address] [address] Performed By: #### 2 4328, ####[facility] LABCLIA [id number] [place] [address] Sodium [Moles/Vol] 144 mmol/L Normal 136-144 [facility] Comment on above: Order Comment: Speci men Type: BLOOD SPECIMENOrdering Facility: [facility] Address: [address] Performed By: #### 2 4323-8, 0 ####[facility] LABIA [id number] [place] [address] Urea nitrogen [Mass/Vol] 39 mg/dL High 9-24 [facility] Comment on above: Order Comment: Speci men Type: BLOOD SPECIMENOrdering Facility: [facility] Address: [address] [id number] Performed By: #### 2 4323-8, 2532-0 ####[facility] LABCLIA [id number] [place] [address] LDH SerPl-cCncon 03-18-2022 LDH [Catalytic activity/Vol] 246 U/L High 135-225 [facility] Comment on above: Order Comment: Speci men Type: BLOOD SPECIMENOrdering Facility: [facility] Address: [address] [place], [place] [address] Performed By: #### 2 4323-8, 2532-0 ####[facility] LABCLIA [id number] [place] [address] CNPNon 03-14-2022 CNPN Normal [facility] PRBC LEUKOREDUCEDon 03-12-20 ABO and Rh group Nom (Bld) Cross Match Result Compatible Unit Blood Type A Pos Unit Number [id number] Status Information Transfused Product ID Red Blood Cells Product Code [id number] Cross Match Result Compatible Unit Blood Type A Pos Unit Number [id number] Status Information Transfused Product ID Red Blood Cells Product Code [id number] Normal [facility] Comment on above: Performed By: #### T NS, PRBC #### [facility] [address] [place] [address] Benito To CBC W Auto Differential pane l (Bld)on 03-11-2022 Erythrocyte distribution width (RBC) [Ratio] 25.5 % High 11.5-15.0 [facility] Comment on above: Order Comment: Speci men Type: BLOOD SPECIMENOrdering Facility: [facility] Address: [address] Performed By: #### 5 7021-8 ####[facility] LABCLIA [id number] [place] [address]#### [id number] ####[facility] LABCLIA [id number] [facility] [id number] [address] [place] Hematocrit (Bld) [Volume fraction] 22.2 % Low 39.0-51.0 [facility] Comment on above: Order Comment: Speci men Type: BLOOD SPECIMENOrdering Facility: [facility] Address: [address] [place] [address] Performed By: #### 5 7021-8 ####[facility] LABCLIA [id number] [place] [address]#### [id number] ####[facility] LABCLIA [id number] [place] [address] [place] Hemoglobin (Bld) [Mass/Vol] 6.9 g/dL Low 13.0-17.0 [facility] Comment on above: Order Comment: Speci men Type: BLOOD SPECIMENOrdering Facility: [facility] Address: [address] [place], [place] [address] Performed By: #### 5 7021-8 ####[facility] LABCLIA [id number] [place] [address]#### [id number] ####[facility] LABCLIA [id number] [place] [address] [place] MCH (RBC) [Entitic mass] 33.5 pg Normal 26.0-34.0 [facility] Comment on above: Order Comment: Speci men Type: BLOOD SPECIMENOrdering Facility: [facility] Address: [address] [place], [place] [address] Performed By: #### 5 7021-8 ####[facility] LABCLIA [id number] [place] [address]#### [id number] ####[facility] LABCLIA [id number] [place] [address] [place] MCHC (RBC) [Mass/Vol] 31.1 g/dL Normal 30.5-36.0 [facility] Comment on above: Order Comment: Speci men Type: BLOOD SPECIMENOrdering Facility: [facility] Address: [address] [place], [place] [address] Performed By: #### 5 7021-8 ####[facility] LABCLIA [id number] [place] [address]#### [id number] ####[facility] LABCLIA [id number] [place] [address] [place] MCV (RBC) [Entitic vol] 107.8 fL High 80.0-100.0 [facility] Comment on above: Order Comment: Speci men Type: BLOOD SPECIMENOrdering Facility: [facility] Address: [address] [place], [place] [address] Performed By: #### 5 7021-8 ####[facility] LABCLIA [id number] [place] [address]#### [id number] ####[facility] LABCLIA [id number] [place] [address] [place] Platelet mean volume (Bld) [Entitic vol] 13.7 fL High 9.0-12.7 [facility] Comment on above: Order Comment: Speci men Type: BLOOD SPECIMENOrdering Facility: [facility] Address: [address] [place], [place] [address] Performed By: #### 5 7021-8 ####[facility] LABCLIA [id number] [place] [address]#### [id number] ####[facility] LABCLIA [id number] [place] [address] [place] Platelets (Bld) [#/Vol] 119 10*3/uL Low 150-400 [facility] Comment on above: Order Comment: Speci men Type: BLOOD SPECIMENOrdering Facility: [facility] Address: [address] [place], [place] [address] Result Comment: Samp le checked for clot Performed By: #### 5 7021-8 ####[facility] LABCLIA [id number] [place] [address]#### [id number] ####[facility] LABCLIA [id number] [place] [address] [place] RBC (Bld) [#/Vol] 2.06 10*6/uL Low 4.20-6.00 [facility] Comment on above: Order Comment: Speci men Type: BLOOD SPECIMENOrdering Facility: [facility] Address: [address] [place] [address] Performed By: #### 5 7021-8 ####[facility] LABCLIA [id number] [place] [address]#### [id number] ####[facility] LABCLIA [id number] [place] [address] [place] WBC (Bld) [#/Vol] 1.70 10*3/uL Low 3.70-11.00 [facility] Comment on above: Order Comment: Speci men Type: BLOOD SPECIMENOrdering Facility: [facility] Address: [address] [place] [address] Result Comment: Samp le checked for clot Performed By: #### 5 7021-8 ####[facility] LABCLIA [id number] [place] [address]#### [id number] ####[facility] LABCLIA [id number] [place] [address] [place] CNOVSPon 03-11-2022 CNOVSP Normal [facility] CNPNon 03-11-2022 CNPN Normal [facility] Comprehensive metabolic 2000 panelon 03-11-2022 Albumin [Mass/Vol] 3.8 g/dL Low 3.9-4.9 [facility] Comment on above: Order Comment: Speci men Type: BLOOD SPECIMENOrdering Facility: [facility] Address: [address] Performed By: #### 2 532-0, ####[facility] LABCLIA [id number] [place] [address] ALP [Catalytic activity/Vol] 70 U/L Normal 38-113 [facility] Comment on above: Order Comment: Speci men Type: BLOOD SPECIMENOrdering Facility: [facility] Address: [address] [place] [address] Performed By: #### 2 532-0, ####[facility] LABCLIA [id number] [place] [address] ALT [Catalytic activity/Vol] 19 U/L Normal 10-54 [facility] Comment on above: Order Comment: Speci men Type: BLOOD SPECIMENOrdering Facility: [facility] Address: [address] [place] [address] Performed By: #### 2 532-0, ####[facility] LABIA [id number] [place] [address] Anion gap [Moles/Vol] 12 mmol/L Normal 9-18 [facility] Comment on above: Order Comment: Speci men Type: BLOOD SPECIMENOrdering Facility: [facility] Address: [address] [place] [address] Performed By: #### 2 532-0, ####[facility] LABCLIA [id number] [place] [address] AST [Catalytic activity/Vol] 11 U/L Low 14-40 [facility] Comment on above: Order Comment: Speci men Type: BLOOD SPECIMENOrdering Facility: [facility] Address: [address] [place], [place] [address] Performed By: #### 2 532-0, 68492-3 ####[facility] LABCLIA [id number] [place] [address] Bilirubin [Mass/Vol] 0.6 mg/dL Normal 0.2-1.3 [facility] Comment on above: Order Comment: Speci men Type: BLOOD SPECIMENOrdering Facility: [facility] Address: [address] [place] [address] Performed By: #### 2 532-0, 45606-8 ####[facility] LABCLIA [id number] [place] [address] Calcium [Mass/Vol] 8.6 mg/dL Normal 8.5-10.2 [facility] Comment on above: Order Comment: Speci men Type: BLOOD SPECIMENOrdering Facility: [facility] Address: [address] [place] [address] Performed By: #### 2 532-0, 72776-8 ####[facility] LABCLIA [id number] [place] [address] Chloride [Moles/Vol] 106 mmol/L High 97-105 [facility] Comment on above: Order Comment: Speci men Type: BLOOD SPECIMENOrdering Facility: [facility] Address: [address] [place] [address] Performed By: #### 2 532-0, 80036-3 ####[facility] LABCLIA [id number] [place] [address] CO2 [Moles/Vol] 27 mmol/L Normal 22-30 [facility] Comment on above: Order Comment: Speci men Type: BLOOD SPECIMENOrdering Facility: [facility] Address: [address] [place] [address] Performed By: #### 2 532-0, 69263-7 ####[facility] LABCLIA [id number] [place] [address] Creatinine [Mass/Vol] 1.86 mg/dL High 0.73-1.22 [facility] Comment on above: Order Comment: Davi avendaño Type: BLOOD SPECIMENOrdering Facility: [facility] Address: [address] [id number] Performed By: #### 2 532-0, 43757-2 ####[facility] LABCLIA [id number] [place] [address] ESTIMATED GLOMERULAR FILTRATION RATE 35 mL/min/1.73m??? Low >=60 [facility] Comment on above: Order Comment: Speci men Type: BLOOD SPECIMENOrdering Facility: [facility] Address: [address] [place], [place] [address] Result Comment: Faye mated Glomerular Filtration Rate [...] actual GFR. Performed By: #### 2 532-0, 43475-6 ####[facility] LABCLIA [id number] [place] [address] Glucose [Mass/Vol] 214 mg/dL High 74-99 [facility] Comment on above: Order Comment: Davi avendaño Type: BLOOD SPECIMENOrdering Facility: [facility] Address: [address] [place], [place] [address] Result Comment: The [place] [employer] (ADA) provides guidance for cutoff [...] Standards of Medical Care in Diabetes 2016, [place] [employer]. Diabetes Care. 2016.39(Suppl 1). Performed By: #### 2 532-0, 27178-1 ####[facility] LABCLIA [id number] [place] [address] Potassium [Moles/Vol] 3.8 mmol/L Normal 3.7-5.1 [facility] Comment on above: Order Comment: Speci men Type: BLOOD SPECIMENOrdering Facility: [facility] Address: [address] [place] [address] Performed By: #### 2 532-0, ####[facility] LABIA [id number] [place] [address] Protein [Mass/Vol] 5.8 g/dL Low 6.3-8.0 [facility] Comment on above: Order Comment: Speci men Type: BLOOD SPECIMENOrdering Facility: [facility] Address: [address] [place] [address] Performed By: #### 2 532-0, ####[facility] LABIA [id number] [place] [address] Sodium [Moles/Vol] 145 mmol/L High 136-144 [facility] Comment on above: Order Comment: Speci men Type: BLOOD SPECIMENOrdering Facility: [facility] Address: [address] [place] [address] Performed By: #### 2 532-0, ####[facility] LABIA [id number] [place] [address] Urea nitrogen [Mass/Vol] 17 mg/dL Normal 9-24 [facility] Comment on above: Order Comment: Speci men Type: BLOOD SPECIMENOrdering Facility: [facility] Address: [address] [place] [address] Performed By: #### 2 532-0, ####[facility] LABCLIA [id number] [place] [address] HEMOGRAM AND PLATELon 2021 Hematocrit (Bld) [Volume fraction] 23.0 % Critically low 42.0-54.0 [facility] Comment on above: Performed By: #### T NS, PRBC #### [facility] [address] [place] [address] Dr. Benito To Hemoglobin (Bld) [Mass/Vol] 7.1 g/dL Critically low 14.0-18.0 [facility] Comment on above: Performed By: #### T NS, PRBC #### [facility] [address] [place] [address] Dr. Benito To MCH (RBC) [Entitic mass] 33.6 pg Normal 25.9-34.0 [facility] Comment on above: Performed By: #### T NS, PRBC #### [facility] [address] [place] [address] Dr. Benito To MCHC (RBC) [Mass/Vol] 30.9 g/dL Normal 29.9-35.2 [facility] Comment on above: Performed By: #### T NS, PRBC #### [facility] [address] [place] [address] Dr. Benito To MCV (RBC) [Entitic vol] 109.0 fL Critically high 80.0-94.0 [facility] Comment on above: Performed By: #### T NS, PRBC #### [facility] [address] [place] [address] Dr. Benito To PLT 108 103/ul Critically low 150-450 [facility] Comment on above: Performed By: #### T NS, PRBC #### [facility] [address] [place] [address] Dr. Benito To RBC 2.11 106/ul Critically low 4.70-6.10 [facility] Comment on above: Performed By: #### T NS, PRBC #### [facility] [address] [place] [address] Dr. Benito To WBC 2.0 103/ul Critically low 4.0-11.0 [facility] Comment on above: Performed By: #### T NS, PRBC #### [facility] [address] [address] [address] Benito To LDH SerPl-cCncon 03-11-2022 LDH [Catalytic activity/Vol] 213 U/L Normal 135-225 [facility] Comment on above: Order Comment: Speci men Type: BLOOD SPECIMENOrdering Facility: [facility] Address: [address] [place] [address] Performed By: #### 2 532-0, 52965-4 ####[facility] LABCLIA [id number] [place] [address] MANUAL SCAN/DIFFon ANC (SEG + BAND) MANUAL DIFF 0.56 k/uL Low 1.45-7.50 [facility] Comment on above: Order Comment: Speci men Type: BLOOD SPECIMENOrdering Facility: [facility] Address: [address] [place] [address] Performed By: #### 5 7021-8 ####[facility] LABCLIA [id number] [place] [address]#### [id number] ####[facility] LABCLIA [id number] [place] [address] [place] ANISOCYTOSIS Present Normal [facility] Comment on above: Order Comment: Speci men Type: BLOOD SPECIMENOrdering Facility: [facility] Address: [address] [place] [address] Performed By: #### 5 7021-8 ####[facility] LABCLIA [id number] [place] [address]#### [id number] ####[facility] LABCLIA [id number] [place] [address] [place] Basophils (Bld) [#/Vol] 0.03 10*3/uL Normal <0.11 [facility] Comment on above: Order Comment: Speci men Type: BLOOD SPECIMENOrdering Facility: [facility] Address: [address] [place] [address] Performed By: #### 5 7021-8 ####[facility] LABCLIA [id number] [place] [address]#### [id number] ####[facility] LABCLIA [id number] [place] [address] [place] Basophils/100 WBC (Bld) 2.0 % Normal [facility] Comment on above: Order Comment: Speci men Type: BLOOD SPECIMENOrdering Facility: [facility] Address: [address] [place], [place] [address] Performed By: #### 5 7021-8 ####[facility] LABCLIA [id number] [place] [address]#### [id number] ####[facility] LABCLIA [id number] [place] [address] [place] CELLS COUNTED 100 Counted Normal [facility] Comment on above: Order Comment: Speci men Type: BLOOD SPECIMENOrdering Facility: [facility] Address: [address] [place] [address] Performed By: #### 5 7021-8 ####[facility] LABCLIA [id number] [place] [address]#### [id number] ####[facility] LABCLIA [id number] [place] [address] [place] Eosinophils (Bld) [#/Vol] 0.00 10*3/uL Normal <0.46 [facility] Comment on above: Order Comment: Speci men Type: BLOOD SPECIMENOrdering Facility: [facility] Address: [address] [place], [place] [address] Performed By: #### 5 7021-8 ####[facility] LABCLIA [id number] [place] [address]#### [id number] ####[facility] LABCLIA [id number] [place] [address] [place] Eosinophils/100 WBC (Bld) 0.0 % Normal [facility] Comment on above: Order Comment: Speci men Type: BLOOD SPECIMENOrdering Facility: [facility] Address: [address] [place] [address] Performed By: #### 5 7021-8 ####[facility] LABCLIA [id number] [place] [address]#### [id number] ####[facility] LABCLIA [id number] [place] [address] [place] Giant platelets LM Ql (Bld) Occasional Normal [facility] Comment on above: Order Comment: Speci men Type: BLOOD SPECIMENOrdering Facility: [facility] Address: [address] [place] [address] Performed By: #### 5 7021-8 ####[facility] LABCLIA [id number] [place] [address]#### [id number] ####[facility] LABCLIA [id number] [place] [address] [place] Lymphocytes (Bld) [#/Vol] 0.77 10*3/uL Low 1.00-4.00 [facility] Comment on above: Order Comment: Speci men Type: BLOOD SPECIMENOrdering Facility: [facility] Address: [address] [place] [address] Performed By: #### 5 7021-8 ####[facility] LABCLIA [id number] [place] [address]#### [id number] ####[facility] LABCLIA [id number] [place] [address] [place] Lymphocytes/100 WBC (Bld) 45.0 % Normal [facility] Comment on above: Order Comment: Speci men Type: BLOOD SPECIMENOrdering Facility: [facility] Address: [address] [place] [address] Performed By: #### 5 7021-8 ####[facility] LABCLIA [id number] [place] [address]#### [id number] ####[facility] LABCLIA [id number] [place] [address] [place] Monocytes (Bld) [#/Vol] 0.34 10*3/uL Normal <0.87 [facility] Comment on above: Order Comment: Speci men Type: BLOOD SPECIMENOrdering Facility: [facility] Address: [address] [place], [place] [address] Performed By: #### 5 7021-8 ####[facility] LABCLIA [id number] [place] [address]#### [id number] ####[facility] LABCLIA [id number] [place] [address] [place] Monocytes/100 WBC (Bld) 20.0 % Normal [facility] Comment on above: Order Comment: Speci men Type: BLOOD SPECIMENOrdering Facility: [facility] Address: [address] [place], [place] [address] Performed By: #### 5 7021-8 ####[facility] LABCLIA [id number] [place] [address]#### [id number] ####[facility] LABCLIA [id number] [place] [address] [place] Neutrophils/100 WBC (Bld) 33.0 % Normal [facility] Comment on above: Order Comment: Speci men Type: BLOOD SPECIMENOrdering Facility: [facility] Address: [address] [place], [place] [address] Performed By: #### 5 7021-8 ####[facility] LABCLIA [id number] [place] [address]#### [id number] ####[facility] LABCLIA [id number] [place] [address] [place] Ovalocytes LM Ql (Bld) Few Normal [facility] Comment on above: Order Comment: Speci men Type: BLOOD SPECIMENOrdering Facility: [facility] Address: [address] [place], [place] [address] Performed By: #### 5 7021-8 ####[facility] LABCLIA [id number] [place] [address]#### [id number] ####[facility] LABCLIA [id number] [address] [place] PLATELET ESTIMATE Decreased Normal [facility] Comment on above: Order Comment: Speci men Type: BLOOD SPECIMENOrdering Facility: [facility] Address: [address] [place] [address] Performed By: #### 5 7021-8 ####[facility] LABCLIA [id number] [place] [id number]#### [id number] ####[facility] LABCLIA [id number] [place] [address] [place] Polychromasia LM Ql (Bld) Slight Normal [facility] Comment on above: Order Comment: Speci men Type: BLOOD SPECIMENOrdering Facility: [facility] Address: [address] [place] [address] Performed By: #### 5 7021-8 ####[facility] LABCLIA [id number] [place] [id number]#### [id number] ####[facility] LABCLIA [id number] [place] [address] [place] [facility] RBC FRAGMENTS Few Abnormal None Seen [facility] Comment on above: Order Comment: Speci men Type: BLOOD SPECIMENOrdering Facility: [facility] Address: [address] [place] [address] Performed By: #### 5 7021-8 ####[facility] LABCLIA [id number] [place] [address]#### [id number] ####[facility] LABCLIA [id number] [address] [place] CELL MORPH Reviewed: see result s of individual morphologies Normal [facility] Comment on above: Order Comment: Speci men Type: BLOOD SPECIMENOrdering Facility: [facility] Address: [address] [place] [address] Performed By: #### 5 7021-8 ####[facility] LABCLIA [id number] [place] [address]#### [id number] ####[facility] LABCLIA [id number] [address] OF [facility] TYPE AND SCREENon 03-11-2022 TYPE AND SCREEN Negative Normal [facility] Comment on above: Performed By: #### T NS, PRBC #### [facility] [address] [place] [address] [address] Benito To PRBC LEUKOREDUCEDon 03-05-20 22 ABO and Rh group Nom (Bld) Cross Match Result Compatible Unit Blood Type A Pos Unit Number [id number] Status Information Transfused Product ID Red Blood Cells Product Code [id number] Cross Match Result Compatible Unit Blood Type A Pos Unit Number [id number] Status Information Transfused Product ID Red Blood Cells Product Code [id number] Normal [facility] Comment on above: Performed By: #### P RBC, TNS #### [facility] [address] [place], [place] [address] Dr. Benito To CBC W Auto Differential pane l (Bld)on 03-04-2022 Anisocytosis Ql (Bld) Present Normal [facility] Comment on above: Order Comment: Speci men Type: BLOOD SPECIMENOrdering Facility: [facility] Address: [address] [place] [address] Performed By: #### 5 7021-8 ####[facility] LABCLIA [id number] [address] LABCLIA [id number] [place] [address] [place] Basophils/100 WBC (Bld) 2.0 % Normal [facility] Comment on above: Order Comment: Speci men Type: BLOOD SPECIMENOrdering Facility: [facility] Address: [address] [place] [address] Performed By: #### 5 7021-8 ####[facility] LABCLIA [id number] [address] LABCLIA [id number] [place] [address] [place] Dacrocytes LM Ql (Bld) Few Normal [facility] Comment on above: Order Comment: Speci men Type: BLOOD SPECIMENOrdering Facility: [facility] Address: [address] [place], [place] [address] Performed By: #### 5 7021-8 ####[facility] LABCLIA [id number] [address] LABCLIA [id number] [place] [address] [place] Differential cell count method Nom (Bld) Manual Normal [facility] Comment on above: Order Comment: Speci men Type: BLOOD SPECIMENOrdering Facility: [facility] Address: [address] [place], [place] [address] Performed By: #### 5 7021-8 ####[facility] LABCLIA [id number] [address] LABCLIA [id number] [place] [address] [place] Eosinophils (Bld) [#/Vol] 0.02 10*3/uL Normal <0.46 [facility] Comment on above: Order Comment: Speci men Type: BLOOD SPECIMENOrdering Facility: [facility] Address: [address] [place] [address] Performed By: #### 5 7021-8 ####[facility] LABCLIA [id number] [address] LABCLIA [id number] [place] [address] [place] Eosinophils/100 WBC (Bld) 1.0 % Normal [facility] Comment on above: Order Comment: Speci men Type: BLOOD SPECIMENOrdering Facility: [facility] Address: [address] [place] [address] Performed By: #### 5 7021-8 ####[facility] LABCLIA [id number] [address] LABCLIA [id number] [place] [address] [place] Erythrocyte distribution width (RBC) [Ratio] 25.2 % High 11.5-15.0 [facility] Comment on above: Order Comment: Speci men Type: BLOOD SPECIMENOrdering Facility: [facility] Address: [address] [place], [place] [address] Performed By: #### 5 7021-8 ####[facility] LABCLIA [id number] [address] LABCLIA [id number] [place] [address] [place] Hematocrit (Bld) [Volume fraction] 24.0 % Low 39.0-51.0 [facility] Comment on above: Order Comment: Speci men Type: BLOOD SPECIMENOrdering Facility: [facility] Address: [address] [place] [address] Performed By: #### 5 7021-8 ####[facility] LABCLIA [id number] [address] LABCLIA [id number] [place] [address] [place] Hemoglobin (Bld) [Mass/Vol] 7.5 g/dL Low 13.0-17.0 [facility] Comment on above: Order Comment: Speci men Type: BLOOD SPECIMENOrdering Facility: [facility] Address: [address] [place] [address] Performed By: #### 5 7021-8 ####[facility] LABCLIA [id number] [address] LABCLIA [id number] [place] [address] [place] Lymphocytes (Bld) [#/Vol] 0.76 10*3/uL Low 1.00-4.00 [facility] Comment on above: Order Comment: Speci men Type: BLOOD SPECIMENOrdering Facility: [facility] Address: [address] [place], [place] [address] Performed By: #### 5 7021-8 ####[facility] LABCLIA [id number] [address] LABCLIA [id number] [place] [address] [place] Lymphocytes/100 WBC (Bld) 38.0 % Normal [facility] Comment on above: Order Comment: Speci men Type: BLOOD SPECIMENOrdering Facility: [facility] Address: [address] [place], [place] [address] Performed By: #### 5 7021-8 ####[facility] LABCLIA [id number] [address] LABCLIA [id number] [place] [address] [place] MCH (RBC) [Entitic mass] 32.3 pg Normal 26.0-34.0 [facility] Comment on above: Order Comment: Speci men Type: BLOOD SPECIMENOrdering Facility: [facility] Address: [address] [place] [address] Performed By: #### 5 7021-8 ####[facility] LABCLIA [id number] [address] LABCLIA [id number] [place] [address] [place] MCHC (RBC) [Mass/Vol] 31.3 g/dL Normal 30.5-36.0 [facility] Comment on above: Order Comment: Speci men Type: BLOOD SPECIMENOrdering Facility: [facility] Address: [address] [place] [address] Performed By: #### 5 7021-8 ####[facility] LABCLIA [id number] [address] LABCLIA [id number] [place] [address] [place] MCV (RBC) [Entitic vol] 103.4 fL High 80.0-100.0 [facility] Comment on above: Order Comment: Speci men Type: BLOOD SPECIMENOrdering Facility: [facility] Address: [address] [place] [address] Performed By: #### 5 7021-8 ####[facility] LABCLIA [id number] [address] LABCLIA [id number] [place] [address] [place] Neutrophils (Bld) [#/Vol] 0.86 10*3/uL Low 1.45-7.50 [facility] Comment on above: Order Comment: Speci men Type: BLOOD SPECIMENOrdering Facility: [facility] Address: [address] [place] [address] Performed By: #### 5 7021-8 ####[facility] LABCLIA [id number] [address] LABCLIA [id number] [place] [address] [place] Neutrophils/100 WBC (Bld) 43.0 % Normal [facility] Comment on above: Order Comment: Speci men Type: BLOOD SPECIMENOrdering Facility: [facility] Address: [address] [place] [address] Performed By: #### 5 7021-8 ####[facility] LABCLIA [id number] [address] LABCLIA [id number] [place] [address] [place] Nucleated RBC/100 WBC (Bld) [Ratio] 0.0 /100 WBC Normal [facility] Comment on above: Order Comment: Speci men Type: BLOOD SPECIMENOrdering Facility: [facility] Address: [address] [place], [place] [address] Performed By: #### 5 7021-8 ####[facility] LABCLIA [id number] [address] LABCLIA [id number] [place] [address] [place] Ovalocytes LM Ql (Bld) Few Normal [facility] Comment on above: Order Comment: Speci men Type: BLOOD SPECIMENOrdering Facility: [facility] Address: [address] [place], [place] [address] Performed By: #### 5 7021-8 ####[facility] LABCLIA [id number] [address] LABCLIA [id number] [place] [address] [place] PLATELET ESTIMATE Decreased Normal [facility] Comment on above: Order Comment: Speci men Type: BLOOD SPECIMENOrdering Facility: [facility] Address: [address] [place], [place] [address] Performed By: #### 5 7021-8 ####[facility] LABCLIA [id number] [address] LABCLIA [id number] [place] [address] [place] Platelet mean volume (Bld) [Entitic vol] 12.6 fL Normal 9.0-12.7 [facility] Comment on above: Order Comment: Speci men Type: BLOOD SPECIMENOrdering Facility: [facility] Address: [address] [place] [address] Performed By: #### 5 7021-8 ####[facility] LABCLIA [id number] [address] LABCLIA [id number] [place] [address] [place] Platelets (Bld) [#/Vol] 43 10*3/uL Low 150-400 [facility] Comment on above: Order Comment: Speci men Type: BLOOD SPECIMENOrdering Facility: [facility] Address: [address] [place], [place] [address] Result Comment: Samp le checked for clot Performed By: #### 5 7021-8 ####[facility] LABCLIA [id number] [address] LABCLIA [id number] [place] [address] [place] Polychromasia LM Ql (Bld) Slight Normal [facility] Comment on above: Order Comment: Speci men Type: BLOOD SPECIMENOrdering Facility: [facility] Address: [address] [place] [address] Performed By: #### 5 7021-8 ####[facility] LABCLIA [id number] [address] LABCLIA [id number] [place] [address] [place] RBC (Bld) [#/Vol] 2.32 10*6/uL Low 4.20-6.00 [facility] Comment on above: Order Comment: Speci men Type: BLOOD SPECIMENOrdering Facility: [facility] Address: [address] [place] [address] Performed By: #### 5 7021-8 ####[facility] LABCLIA [id number] [address] LABCLIA [id number] [place] [address] [place] RBC FRAGMENTS Few Abnormal None Seen [facility] Comment on above: Order Comment: Speci men Type: BLOOD SPECIMENOrdering Facility: [facility] Address: [address] [place] [address] Performed By: #### 5 7021-8 ####[facility] LABCLIA [id number] [address] LABCLIA [id number] [place] [address] [place] RED CELL MORPH Reviewed: see result s of individual morphologies Normal [facility] Comment on above: Order Comment: Speci men Type: BLOOD SPECIMENOrdering Facility: [facility] Address: [address] [place], [place] [address] Performed By: #### 5 7021-8 ####[facility] LABCLIA [id number] [place] [id number] LABCLIA [id number] [place] [address] [place] WAM - ABS BASO 0.04 k/uL Normal <0.11 [facility] Comment on above: Order Comment: Speci men Type: BLOOD SPECIMENOrdering Facility: [facility] Address: [address] [place] [address] Performed By: #### 5 7021-8 ####[facility] LABCLIA [id number] [place] [id number] LABCLIA [id number] [place] [address] [place] WAM - ABS MONO 0.32 k/uL Normal <0.87 [facility] Comment on above: Order Comment: Speci men Type: BLOOD SPECIMENOrdering Facility: [facility] Address: [address] [place], [place] [address] Performed By: #### 5 7021-8 ####[facility] LABCLIA [id number] [place] [id number] LABCLIA [id number] [place] [address] [place] WAM - MONO% 16.0 % Normal [facility] Comment on above: Order Comment: Speci men Type: BLOOD SPECIMENOrdering Facility: [facility] Address: [address] [place] [address] Performed By: #### 5 7021-8 ####[facility] LABCLIA [id number] [place] [id number] LABCLIA [id number] [place] [address] [place] WAM ABSOLUTE NRBC <0.01 Normal <0.01 [facility] Comment on above: Order Comment: Speci men Type: BLOOD SPECIMENOrdering Facility: [facility] Address: [address] [place], [place] [address] Performed By: #### 5 7021-8 ####[facility] LABCLIA [id number] [place] [id number] LABCLIA [id number] [place] [address] [place] WBC (Bld) [#/Vol] 2.00 10*3/uL Low 3.70-11.00 [facility] Comment on above: Order Comment: Speci men Type: BLOOD SPECIMENOrdering Facility: [facility] Address: [address] [place] [address] Result Comment: [facility] Performed By: #### 5 7021-8 ####[facility] LABCLIA [id number] [place] [id number] LABCLIA [id number] [place] [address] [place] Comprehensive metabolic 2000 panelon 03-04-2022 Albumin [Mass/Vol] 3.8 g/dL Low 3.9-4.9 [facility] Comment on above: Order Comment: Speci men Type: BLOOD SPECIMENOrdering Facility: [facility] Address: [address] [place], [place] [address] Performed By: #### 2 4323-8, 2532-0 ####[facility] LABCLIA [id number] [place] [address] ALP [Catalytic activity/Vol] 68 U/L Normal 38-113 [facility] Comment on above: Order Comment: Speci men Type: BLOOD SPECIMENOrdering Facility: [facility] Address: [address] [place], [place] [address] Performed By: #### 2 4323-8, 2532-0 ####[facility] LABCLIA [id number] [place] [address] ALT [Catalytic activity/Vol] 21 U/L Normal 10-54 [facility] Comment on above: Order Comment: Speci men Type: BLOOD SPECIMENOrdering Facility: [facility] Address: [address] [place], [place] [address] Performed By: #### 2 4323-8, 253-0 ####[facility] LABCLIA [id number] [place] [address] Anion gap [Moles/Vol] 10 mmol/L Normal 9-18 [facility] Comment on above: Order Comment: Speci men Type: BLOOD SPECIMENOrdering Facility: [facility] Address: [address] [place] [address] Performed By: #### 2 4323-8, 2531-0 ####[facility] LABCLIA [id number] [place] [address] AST [Catalytic activity/Vol] 11 U/L Low 14-40 [facility] Comment on above: Order Comment: Speci men Type: BLOOD SPECIMENOrdering Facility: [facility] Address: [address] [place], [place] [address] Performed By: #### 2 4323-8, 2531-0 ####[facility] LABCLIA [id number] [place] [address] Bilirubin [Mass/Vol] 0.8 mg/dL Normal 0.2-1.3 [facility] Comment on above: Order Comment: Speci men Type: BLOOD SPECIMENOrdering Facility: [facility] Address: [address] [place], [place] [address] Performed By: #### 2 4323-8, 253-0 ####[facility] LABCLIA [id number] [place] [address] Calcium [Mass/Vol] 8.8 mg/dL Normal 8.5-10.2 [facility] Comment on above: Order Comment: Speci men Type: BLOOD SPECIMENOrdering Facility: [facility] Address: [address] [place], [place] [address] Performed By: #### 2 4323-8, 2532-0 ####[facility] LABCLIA [id number] [place] [address] Chloride [Moles/Vol] 106 mmol/L High 97-105 [facility] Comment on above: Order Comment: Speci men Type: BLOOD SPECIMENOrdering Facility: [facility] Address: [address] [place] [address] Performed By: #### 2 4323-8, 253-0 ####[facility] LABCLIA [id number] [place] [address] CO2 [Moles/Vol] 27 mmol/L Normal 22-30 [facility] Comment on above: Order Comment: Speci men Type: BLOOD SPECIMENOrdering Facility: [facility] Address: [address] [place] [address] Performed By: #### 2 4323-8, 2531-0 ####[facility] LABCLIA [id number] [place] [address] Creatinine [Mass/Vol] 1.73 mg/dL High 0.73-1.22 [facility] Comment on above: Order Comment: Speci men Type: BLOOD SPECIMENOrdering Facility: [facility] Address: [address] [place] [address] Performed By: #### 2 4323-8, 2531-0 ####[facility] LABIA [id number] [place] [address] ESTIMATED GLOMERULAR FILTRATION RATE 39 mL/min/1.73m??? Low >=60 [facility] Comment on above: Order Comment: Speci men Type: BLOOD SPECIMENOrdering Facility: [facility] Address: [address] [place] [address] Result Comment: Faye mated Glomerular Filtration Rate [...] actual GFR. Performed By: #### 2 4323-8, ####[facility] LABCLIA [id number] [place] [address] Glucose [Mass/Vol] 154 mg/dL High 74-99 [facility] Comment on above: Order Comment: Speci men Type: BLOOD SPECIMENOrdering Facility: [facility] Address: [address] [place] [phone] Result Comment: The [place] [employer] (ADA) provides guidance for cutoff [...] Standards of Medical Care in Diabetes 2016, [place] [employer]. Diabetes Care. 2016.39(Suppl 1). Performed By: #### 2 4328, ####[facility] LABCLIA [id number] [place] [address] Potassium [Moles/Vol] 4.2 mmol/L Normal 3.7-5.1 [facility] Comment on above: Order Comment: Speci men Type: BLOOD SPECIMENOrdering Facility: [facility] Address: [address] [place] [phone] Performed By: #### 2 4328, ####[facility] LABCLIA [id number] [place] [address] Protein [Mass/Vol] 5.8 g/dL Low 6.3-8.0 [facility] Comment on above: Order Comment: Speci men Type: BLOOD SPECIMENOrdering Facility: [facility] Address: [address] [place] [address] Performed By: #### 2 4323-8, 2531-0 ####[facility] LABCLIA [id number] [place] [address] Sodium [Moles/Vol] 143 mmol/L Normal 136-144 [facility] Comment on above: Order Comment: Speci men Type: BLOOD SPECIMENOrdering Facility: [facility] Address: [address] [place] [address] Performed By: #### 2 4323-8, 2531-0 ####[facility] LABCLIA [id number] [place] [address] Urea nitrogen [Mass/Vol] 23 mg/dL Normal 9-24 [facility] Comment on above: Order Comment: Speci men Type: BLOOD SPECIMENOrdering Facility: [facility] Address: [address] [place] [address] Performed By: #### 2 43238, 2531-0 ####[facility] LABCLIA [id number] [place] [address] LDH SerPl-cCncon 03-04-2022 LDH [Catalytic activity/Vol] 216 U/L Normal 135-225 [facility] Comment on above: Order Comment: Speci men Type: BLOOD SPECIMENOrdering Facility: [facility] Address: [address] [place] [address] Result Comment: Hemo lysis present. The origin [...] indicated. Performed By: #### 2 4323-8, 2532-0 ####[facility] LABCLIA [id number] [place] [address] CBC W Auto Differential pane l (Bld)on 02-28-2022 Basophils (Bld) [#/Vol] 10*3/uL Normal <0.11 [facility] Comment on above: Order Comment: Speci men Type: BLOOD SPECIMENOrdering Facility: [facility] Address: [address] [place] [address] Performed By: #### 5 7021-8 ####[facility] LABCLIA [id number] [place] [address] Basophils/100 WBC (Bld) 0.4 % Normal [facility] Comment on above: Order Comment: Speci men Type: BLOOD SPECIMENOrdering Facility: [facility] Address: [address] [place] [address] Performed By: #### 5 7021-8 ####[facility] LABCLIA [id number] [place] [address] Differential cell count method Nom (Bld) Auto Normal [facility] Comment on above: Order Comment: Speci men Type: BLOOD SPECIMENOrdering Facility: [facility] Address: [address] [place] [address] Performed By: #### 5 7021-8 ####[facility] LABCLIA [id number] [place] [address] Eosinophils (Bld) [#/Vol] 10*3/uL Normal <0.46 [facility] Comment on above: Order Comment: Speci men Type: BLOOD SPECIMENOrdering Facility: [facility] Address: [address] [place] [address] Performed By: #### 5 7021-8 ####[facility] LABCLIA [id number] [place] [address] Eosinophils/100 WBC (Bld) 0.0 % Normal [facility] Comment on above: Order Comment: Speci men Type: BLOOD SPECIMENOrdering Facility: [facility] Address: [address] [place] [address] Performed By: #### 5 7021-8 ####[facility] LABCLIA [id number] [place] [address] Erythrocyte distribution width (RBC) [Ratio] 24.4 % High 11.5-15.0 [facility] Comment on above: Order Comment: Speci men Type: BLOOD SPECIMENOrdering Facility: [facility] Address: [address] [place] [address] Performed By: #### 5 7021-8 ####[facility] LABCLIA [id number] [place] [address] Hematocrit (Bld) [Volume fraction] 20.6 % Low 39.0-51.0 [facility] Comment on above: Order Comment: Speci men Type: BLOOD SPECIMENOrdering Facility: [facility] Address: [address] [place] [address] Performed By: #### 5 7021-8 ####[facility] LABIA [id number] [place] [address] Hemoglobin (Bld) [Mass/Vol] 6.6 g/dL Low 13.0-17.0 [facility] Comment on above: Order Comment: Speci men Type: BLOOD SPECIMENOrdering Facility: [facility] Address: [address] [place] [address] Performed By: #### 5 7021-8 ####[facility] LABIA [id number] [place] [address] IMMATURE GRAN % 1.3 % Normal [facility] Comment on above: Order Comment: Speci men Type: BLOOD SPECIMENOrdering Facility: [facility] Address: [address] [place] [address] Performed By: #### 5 7021-8 ####[facility] LABIA [id number] [place] [address] IMMATURE GRAN ABS 0.03 k/uL Normal <0.10 [facility] Comment on above: Order Comment: Speci men Type: BLOOD SPECIMENOrdering Facility: [facility] Address: [address] [place] [address] Performed By: #### 5 7021-8 ####[facility] LABCLIA [id number] [place] [address] Lymphocytes (Bld) [#/Vol] 0.73 10*3/uL Low 1.00-4.00 [facility] Comment on above: Order Comment: Speci men Type: BLOOD SPECIMENOrdering Facility: [facility] Address: [address] [place] [address] Performed By: #### 5 7021-8 ####[facility] LABCLIA [id number] [place] [address] Lymphocytes/100 WBC (Bld) 32.4 % Normal [facility] Comment on above: Order Comment: Speci men Type: BLOOD SPECIMENOrdering Facility: [facility] Address: [address] [place] [address] Performed By: #### 5 7021-8 ####[facility] LABIA [id number] [place] [address] MCH (RBC) [Entitic mass] 34.9 pg High 26.0-34.0 [facility] Comment on above: Order Comment: Speci men Type: BLOOD SPECIMENOrdering Facility: [facility] Address: [address] [place], [place] [address] Performed By: #### 5 7021-8 ####[facility] LABCLIA [id number] [place] [address] MCHC (RBC) [Mass/Vol] 32.0 g/dL Normal 30.5-36.0 [facility] Comment on above: Order Comment: Speci men Type: BLOOD SPECIMENOrdering Facility: [facility] Address: [address] [place] [address] Performed By: #### 5 7021-8 ####[facility] LABCLIA [id number] [place] [address] MCV (RBC) [Entitic vol] 109.0 fL High 80.0-100.0 [facility] Comment on above: Order Comment: Speci men Type: BLOOD SPECIMENOrdering Facility: [facility] Address: [address] [place] [address] Performed By: #### 5 7021-8 ####[facility] LABCLIA [id number] [place] [address] Monocytes (Bld) [#/Vol] 0.35 10*3/uL Normal <0.87 [facility] Comment on above: Order Comment: Speci men Type: BLOOD SPECIMENOrdering Facility: [facility] Address: [address] [place] [address] Performed By: #### 5 7021-8 ####[facility] LABCLIA [id number] [place] [address] Monocytes/100 WBC (Bld) 15.6 % Normal [facility] Comment on above: Order Comment: Speci men Type: BLOOD SPECIMENOrdering Facility: [facility] Address: [address] [place] [address] Performed By: #### 5 7021-8 ####[facility] LABCLIA [id number] [place] [address] Neutrophils (Bld) [#/Vol] 1.13 10*3/uL Low 1.45-7.50 [facility] Comment on above: Order Comment: Speci men Type: BLOOD SPECIMENOrdering Facility: [facility] Address: [address] [place] [address] Performed By: #### 5 7021-8 ####[facility] LABCLIA [id number] [place] [address] Neutrophils/100 WBC (Bld) 50.3 % Normal [facility] Comment on above: Order Comment: Speci men Type: BLOOD SPECIMENOrdering Facility: [facility] Address: [address] [place] [address] Performed By: #### 5 7021-8 ####[facility] LABCLIA [id number] [place] [address] Nucleated RBC (Bld) [#/Vol] 10*3/uL Normal <0.01 [facility] Comment on above: Order Comment: Speci men Type: BLOOD SPECIMENOrdering Facility: [facility] Address: [address] [place] [address] Performed By: #### 5 7021-8 ####[facility] LABCLIA [id number] [place] [address] Nucleated RBC/100 WBC (Bld) [Ratio] 0.0 /100 WBC Normal [facility] Comment on above: Order Comment: Speci men Type: BLOOD SPECIMENOrdering Facility: [facility] Address: [address] [place] [address] Performed By: #### 5 7021-8 ####[facility] LABIA [id number] [place] [address] Platelet mean volume (Bld) [Entitic vol] 14.1 fL High 9.0-12.7 [facility] Comment on above: Order Comment: Speci men Type: BLOOD SPECIMENOrdering Facility: [facility] Address: [address] [place] [address] Performed By: #### 5 7021-8 ####[facility] LABCLIA [id number] [place] [address] Platelets (Bld) [#/Vol] 44 10*3/uL Low 150-400 [facility] Comment on above: Order Comment: Speci men Type: BLOOD SPECIMENOrdering Facility: [facility] Address: [address] [place] [address] Result Comment: Samp le checked for clot Performed By: #### 5 7021-8 ####[facility] LABCLIA [id number] [place] [address] RBC (Bld) [#/Vol] 1.89 10*6/uL Low 4.20-6.00 [facility] Comment on above: Order Comment: Speci men Type: BLOOD SPECIMENOrdering Facility: [facility] Address: [address] [place] [address] Performed By: #### 5 7021-8 ####[facility] LABCLIA [id number] [place] [address] WBC (Bld) [#/Vol] 2.25 10*3/uL Low 3.70-11.00 [facility] Comment on above: Order Comment: Speci men Type: BLOOD SPECIMENOrdering Facility: [facility] Address: [address] [place] [address] Performed By: #### 5 7021-8 ####[facility] LABCLIA [id number] [place] [address] CNPNon 02-28-2022 CNPN Normal [facility] Comprehensive metabolic 2000 panelon 02-28-2022 Albumin [Mass/Vol] 3.9 g/dL Normal 3.9-4.9 [facility] Comment on above: Order Comment: Speci men Type: BLOOD SPECIMENOrdering Facility: [facility] Address: [address] [place] [address] Performed By: #### 2 532-0, 29760-3 ####[facility] LABCLIA [id number] [place] [address] ALP [Catalytic activity/Vol] 67 U/L Normal 38-113 [facility] Comment on above: Order Comment: Speci men Type: BLOOD SPECIMENOrdering Facility: [facility] Address: [address] [place] [address] Performed By: #### 2 532-0, 53174-8 ####[facility] LABCLIA [id number] [place] [address] ALT [Catalytic activity/Vol] 28 U/L Normal 10-54 [facility] Comment on above: Order Comment: Speci men Type: BLOOD SPECIMENOrdering Facility: [facility] Address: [address] [place] [address] Performed By: #### 2 532-0, 96204-7 ####[facility] LABCLIA [id number] [place] [address] Anion gap [Moles/Vol] 10 mmol/L Normal 9-18 [facility] Comment on above: Order Comment: Speci men Type: BLOOD SPECIMENOrdering Facility: [facility] Address: [address] [place] [address] Performed By: #### 2 532-0, 96828-0 ####[facility] LABIA [id number] [place] [address] AST [Catalytic activity/Vol] 11 U/L Low 14-40 [facility] Comment on above: Order Comment: Speci men Type: BLOOD SPECIMENOrdering Facility: [facility] Address: [address] [place] [address] Performed By: #### 2 532-0, 22096-2 ####[facility] LABCLIA [id number] [place] [address] Bilirubin [Mass/Vol] 0.8 mg/dL Normal 0.2-1.3 [facility] Comment on above: Order Comment: Speci men Type: BLOOD SPECIMENOrdering Facility: [facility] Address: [address] [place] [address] Performed By: #### 2 532-0, ####[facility] LABIA [id number] [place] [address] Calcium [Mass/Vol] 8.6 mg/dL Normal 8.5-10.2 [facility] Comment on above: Order Comment: Speci men Type: BLOOD SPECIMENOrdering Facility: [facility] Address: [address] [place], [place] [address] Performed By: #### 2 532-0, 23096-8 ####[facility] LABCLIA [id number] [place] [address] Chloride [Moles/Vol] 106 mmol/L High 97-105 [facility] Comment on above: Order Comment: Speci men Type: BLOOD SPECIMENOrdering Facility: [facility] Address: [address] [place] [address] Performed By: #### 2 532-0, 05241-2 ####[facility] LABCLIA [id number] [place] [address] CO2 [Moles/Vol] 27 mmol/L Normal 22-30 [facility] Comment on above: Order Comment: Speci men Type: BLOOD SPECIMENOrdering Facility: [facility] Address: [address] [place] [address] Performed By: #### 2 532-0, 60209-9 ####[facility] LABCLIA [id number] [place] [address] Creatinine [Mass/Vol] 1.94 mg/dL High 0.73-1.22 [facility] Comment on above: Order Comment: Speci men Type: BLOOD SPECIMENOrdering Facility: [facility] Address: [address] [place] [address] Performed By: #### 2 532-0, 29278-7 ####[facility] LABCLIA [id number] [place] [address] ESTIMATED GLOMERULAR FILTRATION RATE 34 mL/min/1.73m??? Low >=60 [facility] Comment on above: Order Comment: Speci men Type: BLOOD SPECIMENOrdering Facility: [facility] Address: [address] [place] [address] Result Comment: Faye mated Glomerular Filtration Rate [...] actual GFR. Performed By: #### 2 532-0, ####[facility] LABCLIA [id number] [place] [address] Glucose [Mass/Vol] 154 mg/dL High 74-99 [facility] Comment on above: Order Comment: Davi avendaño Type: BLOOD SPECIMENOrdering Facility: [facility] Address: [address] [id number] Result Comment: The [place] [employer] (ADA) provides guidance for cutoff [...] Standards of Medical Care in Diabetes 2016, [place] [employer]. Diabetes Care. 2016.39(Suppl 1). Performed By: #### 2 532-0, ####[facility] LABCLIA [id number] [place] [address] Potassium [Moles/Vol] 4.1 mmol/L Normal 3.7-5.1 [facility] Comment on above: Order Comment: Davi avendaño Type: BLOOD SPECIMENOrdering Facility: [facility] Address: [address] [place] [address] Performed By: #### 2 532-0, 42897-7 ####[facility] LABCLIA [id number] [place] [address] Protein [Mass/Vol] 5.8 g/dL Low 6.3-8.0 [facility] Comment on above: Order Comment: Speci men Type: BLOOD SPECIMENOrdering Facility: [facility] Address: [address] [place] [address] Performed By: #### 2 532-0, 55720-6 ####[facility] LABCLIA [id number] [place] [address] Sodium [Moles/Vol] 143 mmol/L Normal 136-144 [facility] Comment on above: Order Comment: Speci men Type: BLOOD SPECIMENOrdering Facility: [facility] Address: [address] [place] [address] Performed By: #### 2 532-0, 57052-4 ####[facility] LABCLIA [id number] [place] [address] Urea nitrogen [Mass/Vol] 26 mg/dL High 9-24 [facility] Comment on above: Order Comment: Speci men Type: BLOOD SPECIMENOrdering Facility: [facility] Address: [address] [place] [address] Performed By: #### 2 532-0, 31596-8 ####[facility] LABCLIA [id number] [place] [address] HEMOGLOBIN AND HEMATOCRITon 02-28-2022 Hematocrit (Bld) [Volume fraction] 20.3 % Critically low 42.0-54.0 [facility] Comment on above: Performed By: #### H H #### [facility] [address], [place] [address] Dr. Benito To Hemoglobin (Bld) [Mass/Vol] 6.7 g/dL Critically low 14.0-18.0 [facility] Comment on above: Performed By: #### H H #### [facility] [address] [place], [place] [address] Dr. Benito To LDH SerPl-cCncon 02-28-2022 LDH [Catalytic activity/Vol] 207 U/L Normal 135-225 [facility] Comment on above: Order Comment: Speci men Type: BLOOD SPECIMENOrdering Facility: [facility] Address: [address] [place] [address] Performed By: #### 2 532-0, 56147-4 ####[facility] LABCLIA [id number] [place] [address] TYPE AND SCREENon 02-28-2022 TYPE AND SCREEN Negative Normal [facility] Comment on above: Performed By: #### P RBC, TNS #### [facility] [address] [place], [place] [address] Dr. Benito To CBC W Auto Differential pane l (Bld)on 02-25-2022 Basophils (Bld) [#/Vol] 10*3/uL Normal <0.11 [facility] Comment on above: Order Comment: Speci men Type: BLOOD SPECIMENOrdering Facility: [facility] Address: [address] [place] [address] Performed By: #### 5 7021-8 ####[facility] LABCLIA [id number] [place] [address] Basophils/100 WBC (Bld) 0.3 % Normal [facility] Comment on above: Order Comment: Speci men Type: BLOOD SPECIMENOrdering Facility: [facility] Address: [address] [place] [address] Performed By: #### 5 7021-8 ####[facility] LABCLIA [id number] [place] [address] Differential cell count method Nom (Bld) Auto Normal [facility] Comment on above: Order Comment: Speci men Type: BLOOD SPECIMENOrdering Facility: [facility] Address: [address] [place] [address] Performed By: #### 5 7021-8 ####[facility] LABCLIA [id number] [place] [address] Eosinophils (Bld) [#/Vol] 10*3/uL Normal <0.46 [facility] Comment on above: Order Comment: Speci men Type: BLOOD SPECIMENOrdering Facility: [facility] Address: [address] [place] [address] Performed By: #### 5 7021-8 ####[facility] LABCLIA [id number] [place] [address] Eosinophils/100 WBC (Bld) 0.3 % Normal [facility] Comment on above: Order Comment: Speci men Type: BLOOD SPECIMENOrdering Facility: [facility] Address: [address] [place] [address] Performed By: #### 5 7021-8 ####[facility] LABCLIA [id number] [place] [address] Erythrocyte distribution width (RBC) [Ratio] 24.2 % High 11.5-15.0 [facility] Comment on above: Order Comment: Speci men Type: BLOOD SPECIMENOrdering Facility: [facility] Address: [address] [place] [address] Performed By: #### 5 7021-8 ####[facility] LABCLIA [id number] [place] [address] Hematocrit (Bld) [Volume fraction] 22.8 % Low 39.0-51.0 [facility] Comment on above: Order Comment: Speci men Type: BLOOD SPECIMENOrdering Facility: [facility] Address: [address] [place] [address] Performed By: #### 5 7021-8 ####[facility] LABCLIA [id number] [place] [address] Hemoglobin (Bld) [Mass/Vol] 7.1 g/dL Low 13.0-17.0 [facility] Comment on above: Order Comment: Speci men Type: BLOOD SPECIMENOrdering Facility: [facility] Address: [address] [place] [address] Performed By: #### 5 7021-8 ####[facility] LABCLIA [id number] [place] [address] IMMATURE GRAN % 1.6 % Normal [facility] Comment on above: Order Comment: Speci men Type: BLOOD SPECIMENOrdering Facility: [facility] Address: [address] [place] [address] Performed By: #### 5 7021-8 ####[facility] LABCLIA [id number] [place] [address] IMMATURE GRAN ABS 0.05 k/uL Normal <0.10 [facility] Comment on above: Order Comment: Speci men Type: BLOOD SPECIMENOrdering Facility: [facility] Address: [address] [place] [address] Performed By: #### 5 7021-8 ####[facility] LABCLIA [id number] [place] [address] Lymphocytes (Bld) [#/Vol] 1.00 10*3/uL Normal 1.00-4.00 [facility] Comment on above: Order Comment: Speci men Type: BLOOD SPECIMENOrdering Facility: [facility] Address: [address] [place] [address] Performed By: #### 5 7021-8 ####[facility] LABCLIA [id number] [place] [address] Lymphocytes/100 WBC (Bld) 32.8 % Normal [facility] Comment on above: Order Comment: Speci men Type: BLOOD SPECIMENOrdering Facility: [facility] Address: [address] [place] [address] Performed By: #### 5 7021-8 ####[facility] LABIA [id number] [place] [address] MCH (RBC) [Entitic mass] 33.5 pg Normal 26.0-34.0 [facility] Comment on above: Order Comment: Speci men Type: BLOOD SPECIMENOrdering Facility: [facility] Address: [address] [place] [address] Performed By: #### 5 7021-8 ####[facility] LABIA [id number] [place] [address] MCHC (RBC) [Mass/Vol] 31.1 g/dL Normal 30.5-36.0 [facility] Comment on above: Order Comment: Speci men Type: BLOOD SPECIMENOrdering Facility: [facility] Address: [address] [place] [address] Performed By: #### 5 7021-8 ####[facility] LABIA [id number] [place] [address] MCV (RBC) [Entitic vol] 107.5 fL High 80.0-100.0 [facility] Comment on above: Order Comment: Speci men Type: BLOOD SPECIMENOrdering Facility: [facility] Address: [address] [place] [address] Performed By: #### 5 7021-8 ####[facility] LABIA [id number] [place] [address] Monocytes (Bld) [#/Vol] 0.47 10*3/uL Normal <0.87 [facility] Comment on above: Order Comment: Speci men Type: BLOOD SPECIMENOrdering Facility: [facility] Address: [address] [place] [address] Performed By: #### 5 7021-8 ####[facility] LABIA [id number] [place] [address] Monocytes/100 WBC (Bld) 15.4 % Normal [facility] Comment on above: Order Comment: Speci men Type: BLOOD SPECIMENOrdering Facility: [facility] Address: [address] [place] [address] Performed By: #### 5 7021-8 ####[facility] LABIA [id number] [place] [address] Neutrophils (Bld) [#/Vol] 1.51 10*3/uL Normal 1.45-7.50 [facility] Comment on above: Order Comment: Speci men Type: BLOOD SPECIMENOrdering Facility: [facility] Address: [address] [place] [address] Performed By: #### 5 7021-8 ####[facility] LABCLIA [id number] [place] [address] Neutrophils/100 WBC (Bld) 49.6 % Normal [facility] Comment on above: Order Comment: Speci men Type: BLOOD SPECIMENOrdering Facility: [facility] Address: [address] [place] [address] Performed By: #### 5 7021-8 ####[facility] LABCLIA [id number] [place] [address] Nucleated RBC (Bld) [#/Vol] 10*3/uL Normal <0.01 [facility] Comment on above: Order Comment: Speci men Type: BLOOD SPECIMENOrdering Facility: [facility] Address: [address] [place] [address] Performed By: #### 5 7021-8 ####[facility] LABCLIA [id number] [place] [address] Nucleated RBC/100 WBC (Bld) [Ratio] 0.0 /100 WBC Normal [facility] Comment on above: Order Comment: Speci men Type: BLOOD SPECIMENOrdering Facility: [facility] Address: [address] [place], [place] [address] Performed By: #### 5 7021-8 ####[facility] LABIA [id number] [place] [address] Platelet mean volume (Bld) [Entitic vol] 14.2 fL High 9.0-12.7 [facility] Comment on above: Order Comment: Speci men Type: BLOOD SPECIMENOrdering Facility: [facility] Address: [address] [place] [address] Performed By: #### 5 7021-8 ####[facility] LABCLIA [id number] [place] [address] Platelets (Bld) [#/Vol] 64 10*3/uL Low 150-400 [facility] Comment on above: Order Comment: Speci men Type: BLOOD SPECIMENOrdering Facility: [facility] Address: [address] [place] [address] Result Comment: [facility] Performed By: #### 5 7021-8 ####[facility] LABCLIA [id number] [place] [address] RBC (Bld) [#/Vol] 2.12 10*6/uL Low 4.20-6.00 [facility] Comment on above: Order Comment: Speci men Type: BLOOD SPECIMENOrdering Facility: [facility] Address: [address] [place] [address] Performed By: #### 5 7021-8 ####[facility] LABIA [id number] [place] [address] WBC (Bld) [#/Vol] 3.05 10*3/uL Low 3.70-11.00 [facility] Comment on above: Order Comment: Speci men Type: BLOOD SPECIMENOrdering Facility: [facility] Address: [address] [place] [address] Performed By: #### 5 7021-8 ####[facility] LABCLIA [id number] [place] [address] Comprehensive metabolic 2000 panelon 02-25-2022 Albumin [Mass/Vol] 3.8 g/dL Low 3.9-4.9 [facility] Comment on above: Order Comment: Speci men Type: BLOOD SPECIMENOrdering Facility: [facility] Address: [address] [place] [address] Performed By: #### 2 532-0, 39518-2 ####[facility] LABCLIA [id number] [place] [address] ALP [Catalytic activity/Vol] 69 U/L Normal 38-113 [facility] Comment on above: Order Comment: Speci men Type: BLOOD SPECIMENOrdering Facility: [facility] Address: [address] [place] [address] Performed By: #### 2 532-0, 17389-7 ####[facility] LABCLIA [id number] [place] [address] ALT [Catalytic activity/Vol] 33 U/L Normal 10-54 [facility] Comment on above: Order Comment: Speci men Type: BLOOD SPECIMENOrdering Facility: [facility] Address: [address] [place] [address] Performed By: #### 2 532-0, 34646-8 ####[facility] LABCLIA [id number] [place] [address] Anion gap [Moles/Vol] 9 mmol/L Normal 9-18 [facility] Comment on above: Order Comment: Speci men Type: BLOOD SPECIMENOrdering Facility: [facility] Address: [address] [place] [address] Performed By: #### 2 532-0, 46480-8 ####[facility] LABCLIA [id number] [place] [address] AST [Catalytic activity/Vol] 14 U/L Normal 14-40 [facility] Comment on above: Order Comment: Speci men Type: BLOOD SPECIMENOrdering Facility: [facility] Address: [address] [place] [address] Performed By: #### 2 532-0, 92617-7 ####[facility] LABCLIA [id number] [place] [address] Bilirubin [Mass/Vol] 0.6 mg/dL Normal 0.2-1.3 [facility] Comment on above: Order Comment: Speci men Type: BLOOD SPECIMENOrdering Facility: [facility] Address: [address] [place] [address] Performed By: #### 2 532-0, 15458-3 ####[facility] LABCLIA [id number] [place] [address] Calcium [Mass/Vol] 8.8 mg/dL Normal 8.5-10.2 [facility] Comment on above: Order Comment: Speci men Type: BLOOD SPECIMENOrdering Facility: [facility] Address: [address] [place] [address] Performed By: #### 2 532-0, ####[facility] LABIA [id number] [place] [address] Chloride [Moles/Vol] 105 mmol/L Normal 97-105 [facility] Comment on above: Order Comment: Speci men Type: BLOOD SPECIMENOrdering Facility: [facility] Address: [address] [place] [address] Performed By: #### 2 532-0, ####[facility] LABIA [id number] [place] [address] CO2 [Moles/Vol] 29 mmol/L Normal 22-30 [facility] Comment on above: Order Comment: Speci men Type: BLOOD SPECIMENOrdering Facility: [facility] Address: [address] [place] [address] Performed By: #### 2 532-0, ####[facility] LABIA [id number] [place] [address] Creatinine [Mass/Vol] 1.90 mg/dL High 0.73-1.22 [facility] Comment on above: Order Comment: Speci men Type: BLOOD SPECIMENOrdering Facility: [facility] Address: [address] [place] [address] Performed By: #### 2 532-0, 25077-7 ####[facility] LABCLIA [id number] [place] [address] ESTIMATED GLOMERULAR FILTRATION RATE 35 mL/min/1.73m??? Low >=60 [facility] Comment on above: Order Comment: Cristinaiman avendaño Type: BLOOD SPECIMENOrdering Facility: [facility] Address: [address] [place] [address] Result Comment: Faye mated Glomerular Filtration Rate [...] actual GFR. Performed By: #### 2 532-0, 10315-3 ####[facility] LABIA [id number] [place] [address] Glucose [Mass/Vol] 145 mg/dL High 74-99 [facility] Comment on above: Order Comment: Davi avendaño Type: BLOOD SPECIMENOrdering Facility: [facility] Address: [address] [place] [address] Result Comment: The [place] [employer] (ADA) provides guidance for cutoff [...] Standards of Medical Care in Diabetes 2016, [place] [employer]. Diabetes Care. 2016.39(Suppl 1). Performed By: #### 2 532-0, 48199-1 ####[facility] LABIA [id number] [place] [address] Potassium [Moles/Vol] 4.2 mmol/L Normal 3.7-5.1 [facility] Comment on above: Order Comment: Speci men Type: BLOOD SPECIMENOrdering Facility: [facility] Address: [address] [place] [address] Performed By: #### 2 532-0, ####[facility] LABCLIA [id number] [place] [address] Protein [Mass/Vol] 6.1 g/dL Low 6.3-8.0 [facility] Comment on above: Order Comment: Speci men Type: BLOOD SPECIMENOrdering Facility: [facility] Address: [address] [place] [address] Performed By: #### 2 532-0, ####[facility] LABCLIA [id number] [place] [address] Sodium [Moles/Vol] 143 mmol/L Normal 136-144 [facility] Comment on above: Order Comment: Speci men Type: BLOOD SPECIMENOrdering Facility: [facility] Address: [address] [place] [address] Performed By: #### 2 532-0, ####[facility] LABCLIA [id number] [place] [address] Urea nitrogen [Mass/Vol] 29 mg/dL High 9-24 [facility] Comment on above: Order Comment: Speci men Type: BLOOD SPECIMENOrdering Facility: [facility] Address: [address] [place] [address] Performed By: #### 2 532-0, 31471-2 ####[facility] LABCLIA [id number] [place] [address] LDH SerPl-cCncon 02-25-2022 LDH [Catalytic activity/Vol] 227 U/L High 135-225 [facility] Comment on above: Order Comment: Speci men Type: BLOOD SPECIMENOrdering Facility: [facility] Address: [address] [place], [place] [address] Performed By: #### 2 532-0, 43304-6 ####[facility] LABCLIA [id number] [place] [address] CBC W Auto Differential pane l (Bld)on 02-18-2022 Anisocytosis Ql (Bld) Present Normal [facility] Comment on above: Order Comment: Speci men Type: BLOOD SPECIMENOrdering Facility: [facility] Address: [address] [place] [address] Performed By: #### 5 7021-8 ####[facility] LABCLIA [id number] [address] LABCLIA [id number] [place] [address] Basophils/100 WBC (Bld) 1.0 % Normal [facility] Comment on above: Order Comment: Speci men Type: BLOOD SPECIMENOrdering Facility: [facility] Address: [address] [place], [place] [address] Performed By: #### 5 7021-8 ####[facility] LABCLIA [id number] [address] LABCLIA [id number] [place] [address] Eosinophils (Bld) [#/Vol] 0.00 10*3/uL Normal <0.46 [facility] Comment on above: Order Comment: Speci men Type: BLOOD SPECIMENOrdering Facility: [facility] Address: [address] [place], [place] [address] Performed By: #### 5 7021-8 ####[facility] LABCLIA [id number] [address] LABCLIA [id number] [place] [address] Eosinophils/100 WBC (Bld) 0.0 % Normal [facility] Comment on above: Order Comment: Speci men Type: BLOOD SPECIMENOrdering Facility: [facility] Address: [address] [place] [address] Performed By: #### 5 7021-8 ####[facility] LABCLIA [id number] [address] LABCLIA [id number] [place] [address] Erythrocyte distribution width (RBC) [Ratio] 23.9 % High 11.5-15.0 [facility] Comment on above: Order Comment: Speci men Type: BLOOD SPECIMENOrdering Facility: [facility] Address: [address] [place] [address] Performed By: #### 5 7021-8 ####[facility] LABCLIA [id number] [address] LABCLIA [id number] [place] [address] Giant platelets LM Ql (Bld) Occasional Normal [facility] Comment on above: Order Comment: Speci men Type: BLOOD SPECIMENOrdering Facility: [facility] Address: [address] [place] [address] Performed By: #### 5 7021-8 ####[facility] LABCLIA [id number] [address] LABCLIA [id number] [place] [address] Hematocrit (Bld) [Volume fraction] 25.8 % Low 39.0-51.0 [facility] Comment on above: Order Comment: Speci men Type: BLOOD SPECIMENOrdering Facility: [facility] Address: [address] [place] [address] Performed By: #### 5 7021-8 ####[facility] LABCLIA [id number] [address] LABCLIA [id number] [place] [address] Hemoglobin (Bld) [Mass/Vol] 8.4 g/dL Low 13.0-17.0 [facility] Comment on above: Order Comment: Speci men Type: BLOOD SPECIMENOrdering Facility: [facility] Address: [address] [place], [place] [address] Performed By: #### 5 7021-8 ####[facility] LABCLIA [id number] [address] LABCLIA [id number] [place] [address] Lymphocytes (Bld) [#/Vol] 0.89 10*3/uL Low 1.00-4.00 [facility] Comment on above: Order Comment: Speci men Type: BLOOD SPECIMENOrdering Facility: [facility] Address: [address] [place] [address] Performed By: #### 5 7021-8 ####[facility] LABCLIA [id number] [address] LABCLIA [id number] [place] [address] Lymphocytes/100 WBC (Bld) 23.0 % Normal [facility] Comment on above: Order Comment: Speci men Type: BLOOD SPECIMENOrdering Facility: [facility] Address: [address] [place] [address] Performed By: #### 5 7021-8 ####[facility] LABCLIA [id number] [address] LABCLIA [id number] [place] [address] MCH (RBC) [Entitic mass] 34.3 pg High 26.0-34.0 [facility] Comment on above: Order Comment: Speci men Type: BLOOD SPECIMENOrdering Facility: [facility] Address: [address] [place] [address] Performed By: #### 5 7021-8 ####[facility] LABCLIA [id number] [address] LABCLIA [id number] [place] [address] MCHC (RBC) [Mass/Vol] 32.6 g/dL Normal 30.5-36.0 [facility] Comment on above: Order Comment: Speci men Type: BLOOD SPECIMENOrdering Facility: [facility] Address: [address] [place] [address] Performed By: #### 5 7021-8 ####[facility] LABCLIA [id number] [address] LABCLIA [id number] [place] [address] MCV (RBC) [Entitic vol] 105.3 fL High 80.0-100.0 [facility] Comment on above: Order Comment: Speci men Type: BLOOD SPECIMENOrdering Facility: [facility] Address: [address] [place] [address] Performed By: #### 5 7021-8 ####[facility] LABCLIA [id number] [address] LABCLIA [id number] [place] [address] Metamyelocytes/100 WBC (Bld) 2.0 % Normal [facility] Comment on above: Order Comment: Speci men Type: BLOOD SPECIMENOrdering Facility: [facility] Address: [address] [place] [address] Performed By: #### 5 7021-8 ####[facility] LABCLIA [id number] [address] LABCLIA [id number] [place] [address] MYELO% 3.0 % Normal [facility] Comment on above: Order Comment: Speci men Type: BLOOD SPECIMENOrdering Facility: [facility] Address: [address] [place], [place] [address] Performed By: #### 5 7021-8 ####[facility] LABCLIA [id number] [address] LABCLIA [id number] [place] [address] Neutrophils (Bld) [#/Vol] 2.37 10*3/uL Normal 1.45-7.50 [facility] Comment on above: Order Comment: Speci men Type: BLOOD SPECIMENOrdering Facility: [facility] Address: [address] [place] [address] Performed By: #### 5 7021-8 ####[facility] LABCLIA [id number] [address] LABCLIA [id number] [place] [address] Neutrophils/100 WBC (Bld) 61.0 % Normal [facility] Comment on above: Order Comment: Speci men Type: BLOOD SPECIMENOrdering Facility: [facility] Address: [address] [place] [address] Performed By: #### 5 7021-8 ####[facility] LABCLIA [id number] [address] LABCLIA [id number] [place] [address] Nucleated RBC/100 WBC (Bld) [Ratio] 0.0 /100 WBC Normal [facility] Comment on above: Order Comment: Speci men Type: BLOOD SPECIMENOrdering Facility: [facility] Address: [address] [place] [address] Performed By: #### 5 7021-8 ####[facility] LABCLIA [id number] [address] [address] [facility] LABCLIA [id number] [place] [address] Ovalocytes LM Ql (Bld) Few Normal [facility] Comment on above: Order Comment: Speci men Type: BLOOD SPECIMENOrdering Facility: [facility] Address: [address] [place] [address] Performed By: #### 5 7021-8 ####[facility] LABCLIA [id number] [address] LABCLIA [id number] [place] [address] PLATELET ESTIMATE Adequate Normal [facility] Comment on above: Order Comment: Speci men Type: BLOOD SPECIMENOrdering Facility: [facility] Address: [address] [place] [address] Performed By: #### 5 7021-8 ####[facility] LABCLIA [id number] [address] LABCLIA [id number] [place] [address] Platelet mean volume (Bld) [Entitic vol] 13.9 fL High 9.0-12.7 [facility] Comment on above: Order Comment: Speci men Type: BLOOD SPECIMENOrdering Facility: [facility] Address: [address] [place] [address] Performed By: #### 5 7021-8 ####[facility] LABCLIA [id number] [address] LABCLIA [id number] [place] [address] Platelets (Bld) [#/Vol] 164 10*3/uL Normal 150-400 [facility] Comment on above: Order Comment: Speci men Type: BLOOD SPECIMENOrdering Facility: [facility] Address: [address] [place] [address] Result Comment: Samp le checked for clot Performed By: #### 5 7021-8 ####[facility] LABCLIA [id number] [address] LABCLIA [id number] [place] [address] Polychromasia LM Ql (Bld) Slight Normal [facility] Comment on above: Order Comment: Speci men Type: BLOOD SPECIMENOrdering Facility: [facility] Address: [address] [place] [address] Performed By: #### 5 7021-8 ####[facility] LABCLIA [id number] [address] LABCLIA [id number] [place] [address] RBC (Bld) [#/Vol] 2.45 10*6/uL Low 4.20-6.00 [facility] Comment on above: Order Comment: Speci men Type: BLOOD SPECIMENOrdering Facility: [facility] Address: [address] [place], [place] [address] Performed By: #### 5 7021-8 ####[facility] LABCLIA [id number] [address] LABCLIA [id number] [place] [address] RBC FRAGMENTS Few Abnormal None Seen [facility] Comment on above: Order Comment: Speci men Type: BLOOD SPECIMENOrdering Facility: [facility] Address: [address] [place] [address] Performed By: #### 5 7021-8 ####[facility] LABCLIA [id number] [place] [address] [facility] LABCLIA [id number] [place] [address] RED CELL MORPH Reviewed: see result s of individual morphologies Normal [facility] Comment on above: Order Comment: Speci men Type: BLOOD SPECIMENOrdering Facility: [facility] Address: [address] [place] [address] Performed By: #### 5 7021-8 ####[facility] LABCLIA [id number] [address] LABCLIA [id number] [place] [address] WAM - ABS BASO 0.04 k/uL Normal <0.11 [facility] Comment on above: Order Comment: Speci men Type: BLOOD SPECIMENOrdering Facility: [facility] Address: [address] [place] [address] Performed By: #### 5 7021-8 ####[facility] LABCLIA [id number] [address] LABCLIA [id number] [place] [address] WAM - ABS MONO 0.39 k/uL Normal <0.87 [facility] Comment on above: Order Comment: Speci men Type: BLOOD SPECIMENOrdering Facility: [facility] Address: [address] [place], [place] [address] Performed By: #### 5 7021-8 ####[facility] LABCLIA [id number] [place] [address] [facility] LABCLIA [id number] [place] [address] WAM - MONO% 10.0 % Normal [facility] Comment on above: Order Comment: Speci men Type: BLOOD SPECIMENOrdering Facility: [facility] Address: [address] [place] [address] Performed By: #### 5 7021-8 ####[facility] LABCLIA [id number] [address] LABCLIA [id number] [place] [id number] WAM ABSOLUTE NRBC <0.01 Normal <0.01 [facility] Comment on above: Order Comment: Speci men Type: BLOOD SPECIMENOrdering Facility: [facility] Address: [address] [place] [address] Performed By: #### 5 7021-8 ####[facility] LABCLIA [id number] [address] LABCLIA [id number] [place] [address] WBC (Bld) [#/Vol] 3.77 10*3/uL Normal 3.70-11.00 [facility] Comment on above: Order Comment: Speci men Type: BLOOD SPECIMENOrdering Facility: [facility] Address: [address] [place] [address] Result Comment: No c lot detected. Checked and Verified Performed By: #### 5 7021-8 ####[facility] LABCLIA [id number] [address] LABCLIA [id number] [place] [id number] WBC Left Shift Ql (Bld) Present Normal [facility] Comment on above: Order Comment: Speci men Type: BLOOD SPECIMENOrdering Facility: [facility] Address: [address] [place] [address] Performed By: #### 5 7021-8 ####[facility] LABCLIA [id number] [facility] [id number] [address] [facility] LABCLIA [id number] [place] [address] Comprehensive metabolic 2000 panelon 02-18-2022 Albumin [Mass/Vol] 3.9 g/dL Normal 3.9-4.9 [facility] Comment on above: Order Comment: Speci men Type: BLOOD SPECIMENOrdering Facility: [facility] Address: [address] [place], [place] [address] Performed By: #### 2 4323-8, 2531-0 ####[facility] LABCLIA [id number] [place] [address] ALP [Catalytic activity/Vol] 68 U/L Normal 38-113 [facility] Comment on above: Order Comment: Speci men Type: BLOOD SPECIMENOrdering Facility: [facility] Address: [address] [place] [address] Performed By: #### 2 4323-8, 2531-0 ####[facility] LABCLIA [id number] [place] [address] ALT [Catalytic activity/Vol] 34 U/L Normal 10-54 [facility] Comment on above: Order Comment: Speci men Type: BLOOD SPECIMENOrdering Facility: [facility] Address: [address] [place], [place] [address] Performed By: #### 2 4323-8, 2532-0 ####[facility] LABCLIA [id number] [place] [address] Anion gap [Moles/Vol] 10 mmol/L Normal 9-18 [facility] Comment on above: Order Comment: Speci men Type: BLOOD SPECIMENOrdering Facility: [facility] Address: [address] [place], [place] [address] Performed By: #### 2 4323-8, 2532-0 ####[facility] LABCLIA [id number] [place] [address] AST [Catalytic activity/Vol] 13 U/L Low 14-40 [facility] Comment on above: Order Comment: Speci men Type: BLOOD SPECIMENOrdering Facility: [facility] Address: [address] [place] [address] Performed By: #### 2 4323-8, 2531-0 ####[facility] LABCLIA [id number] [place] [address] Bilirubin [Mass/Vol] 0.7 mg/dL Normal 0.2-1.3 [facility] Comment on above: Order Comment: Speci men Type: BLOOD SPECIMENOrdering Facility: [facility] Address: [address] [place] [address] Performed By: #### 2 4323-8, 2531-0 ####[facility] LABCLIA [id number] [place] [address] Calcium [Mass/Vol] 9.1 mg/dL Normal 8.5-10.2 [facility] Comment on above: Order Comment: Speci men Type: BLOOD SPECIMENOrdering Facility: [facility] Address: [address] [place] [address] Performed By: #### 2 4323-8, 2531-0 ####[facility] LABCLIA [id number] [place] [address] Chloride [Moles/Vol] 102 mmol/L Normal 97-105 [facility] Comment on above: Order Comment: Speci men Type: BLOOD SPECIMENOrdering Facility: [facility] Address: [address] [place], [place] [address] Performed By: #### 2 4323-8, 2532-0 ####[facility] LABCLIA [id number] [place] [address] CO2 [Moles/Vol] 33 mmol/L High 22-30 [facility] Comment on above: Order Comment: Speci men Type: BLOOD SPECIMENOrdering Facility: [facility] Address: [address] [place], [place] [address] Performed By: #### 2 4323-8, 0 ####[facility] LABCLIA [id number] [place] [address] Creatinine [Mass/Vol] 1.90 mg/dL High 0.73-1.22 [facility] Comment on above: Order Comment: Speci men Type: BLOOD SPECIMENOrdering Facility: [facility] Address: [address] [place], [place] [address] Performed By: #### 2 4323-8, ####[facility] LABIA [id number] [place] [address] ESTIMATED GLOMERULAR FILTRATION RATE 35 mL/min/1.73m??? Low >=60 [facility] Comment on above: Order Comment: Speci men Type: BLOOD SPECIMENOrdering Facility: [facility] Address: [address] [place] [address] Result Comment: Faye mated Glomerular Filtration Rate [...] GFR. Performed By: #### 2 4323-8, 0 ####[facility] LABCLIA [id number] [place] [address] Glucose [Mass/Vol] 250 mg/dL High 74-99 [facility] Comment on above: Order Comment: Speci men Type: BLOOD SPECIMENOrdering Facility: [facility] Address: [address] [place], [place] [address] Result Comment: The [place] [employer] (ADA) provides guidance for cutoff [...] Standards of Medical Care in Diabetes 2016, [place] [employer]. Diabetes Care. 2016.39(Suppl 1). Performed By: #### 2 4328, ####[facility] LABCLIA [id number] [place] [address] Potassium [Moles/Vol] 4.0 mmol/L Normal 3.7-5.1 [facility] Comment on above: Order Comment: Speci men Type: BLOOD SPECIMENOrdering Facility: [facility] Address: [address] [place] [address] Performed By: #### 2 43210-02, ####[facility] LABIA [id number] [place] [address] Protein [Mass/Vol] 6.1 g/dL Low 6.3-8.0 [facility] Comment on above: Order Comment: Speci men Type: BLOOD SPECIMENOrdering Facility: [facility] Address: [address] [place] [address] Performed By: #### 2 43210-02, ####[facility] LABIA [id number] [place] [address] Sodium [Moles/Vol] 145 mmol/L High 136-144 [facility] Comment on above: Order Comment: Speci men Type: BLOOD SPECIMENOrdering Facility: [facility] Address: [address] [place] [address] Performed By: #### 2 4328, 0 ####[facility] LABCLIA [id number] [place] [address] Urea nitrogen [Mass/Vol] 42 mg/dL High 9-24 [facility] Comment on above: Order Comment: Speci men Type: BLOOD SPECIMENOrdering Facility: [facility] Address: [address] [place] [address] Performed By: #### 2 4323-8, 2532-0 ####[facility] LABCLIA [id number] [place] [address] LDH SerPl-cCncon 02-18-2022 LDH [Catalytic activity/Vol] 248 U/L High 135-225 [facility] Comment on above: Order Comment: Speci men Type: BLOOD SPECIMENOrdering Facility: [facility] Address: [address] [place] [address] Performed By: #### 2 4323-8, 2532-0 ####[facility] LABCLIA [id number] [place] [address] PRBC LEUKOREDUCEDon 02-18-20 ABO and Rh group Nom (Bld) Cross Match Result Compatible Unit Blood Type A Pos Unit Number [id number] Status Information Transfused Product ID Red Blood Cells Product Code [id number] Cross Match Result Compatible Unit Blood Type A Pos Unit Number [id number] Status Information Transfused Product ID Red Blood Cells Product Code [id number] Normal [facility] Comment on above: Performed By: #### P RBC, TNS #### [facility] [address] [place] [address] Benito To CBC W Auto Differential pane l (Bld)on 02-15-2022 Anisocytosis Ql (Bld) Present Normal [facility] Comment on above: Order Comment: Speci men Type: BLOOD SPECIMENOrdering Facility: [facility] Address: [address] [place] [address] Performed By: #### 5 7021-8 ####[facility] LABCLIA [id number] [place] [address], [place] [address] [place] [address] LABCLIA [id number] [place] [address] Basophils/100 WBC (Bld) 0.0 % Normal [facility] Comment on above: Order Comment: Speci men Type: BLOOD SPECIMENOrdering Facility: [facility] Address: [address] [place] [address] Performed By: #### 5 7021-8 ####[facility] LABCLIA [id number] [address] LABCLIA [id number] [place] [address] Differential cell count method Nom (Bld) Manual Normal [facility] Comment on above: Order Comment: Speci men Type: BLOOD SPECIMENOrdering Facility: [facility] Address: [address] [place] [address] Performed By: #### 5 7021-8 ####[facility] LABCLIA [id number] [address] LABCLIA [id number] [place] [address] Eosinophils (Bld) [#/Vol] 0.00 10*3/uL Normal <0.46 [facility] Comment on above: Order Comment: Speci men Type: BLOOD SPECIMENOrdering Facility: [facility] Address: [address] [place], [place] [address] Performed By: #### 5 7021-8 ####[facility] LABCLIA [id number] [address] LABCLIA [id number] [place] [address] Eosinophils/100 WBC (Bld) 0.0 % Normal [facility] Comment on above: Order Comment: Speci men Type: BLOOD SPECIMENOrdering Facility: [facility] Address: [address] [place] [address] Performed By: #### 5 7021-8 ####[facility] LABCLIA [id number] [address] LABCLIA [id number] [place] [address] Erythrocyte distribution width (RBC) [Ratio] 24.0 % High 11.5-15.0 [facility] Comment on above: Order Comment: Speci men Type: BLOOD SPECIMENOrdering Facility: [facility] Address: [address] [place] [address] Result Comment: Suresh ected result: Previously reported as 24.0 % on 02/15/2022 at 1:41 PM EDT.Corrected result: Previously reported as 23.8 % on 02/15/2022 at 11:23 PM EDT. Performed By: #### 5 7021-8 ####[facility] LABCLIA [id number] [address] LABCLIA [id number] [place] [id number] Giant platelets LM Ql (Bld) Occasional Normal [facility] Comment on above: Order Comment: Speci men Type: BLOOD SPECIMENOrdering Facility: [facility] Address: [address] [place] [address] Performed By: #### 5 7021-8 ####[facility] LABCLIA [id number] [address] LABCLIA [id number] [place] [address] Hematocrit (Bld) [Volume fraction] 24.6 % Low 39.0-51.0 [facility] Comment on above: Order Comment: Speci men Type: BLOOD SPECIMENOrdering Facility: [facility] Address: [address] [place] [address] Result Comment: Suresh ected result: Previously reported as 24.6 % on 02/15/2022 at 1:41 PM EDT.Corrected result: Previously reported as 24.8 % on 02/15/2022 at 11:23 PM EDT. Performed By: #### 5 7021-8 ####[facility] LABCLIA [id number] [address] LABCLIA [id number] [place] [address] Hemoglobin (Bld) [Mass/Vol] 7.9 g/dL Low 13.0-17.0 [facility] Comment on above: Order Comment: Speci men Type: BLOOD SPECIMENOrdering Facility: [facility] Address: [address] [place] [address] Result Comment: Suresh ected result: Previously reported as 7.9 g/dL on 02/15/2022 at 1:41 PM EDT.Corrected result: Previously reported as 8.0 g/dL on 02/15/2022 at 11:23 PM EDT. Performed By: #### 5 7021-8 ####[facility] LABCLIA [id number] [address] LABCLIA [id number] [place] [address] Lymphocytes (Bld) [#/Vol] 0.87 10*3/uL Low 1.00-4.00 [facility] Comment on above: Order Comment: Speci men Type: BLOOD SPECIMENOrdering Facility: [facility] Address: [address] [place], [place] [address] Performed By: #### 5 7021-8 ####[facility] LABCLIA [id number] [address] LABCLIA [id number] [place] [address] Lymphocytes/100 WBC (Bld) 18.0 % Normal [facility] Comment on above: Order Comment: Speci men Type: BLOOD SPECIMENOrdering Facility: [facility] Address: [address] [place] [address] Performed By: #### 5 7021-8 ####[facility] LABCLIA [id number] [address] LABCLIA [id number] [place] [address] MCH (RBC) [Entitic mass] 33.5 pg Normal 26.0-34.0 [facility] Comment on above: Order Comment: Speci men Type: BLOOD SPECIMENOrdering Facility: [facility] Address: [address] [place] [address] Result Comment: Suresh ected result: Previously reported as 33.5 pg on 02/15/2022 at 1:41 PM EDT.Corrected result: Previously reported as 33.9 pg on 02/15/2022 at 11:23 PM EDT. Performed By: #### 5 7021-8 ####[facility] LABCLIA [id number] [address] LABCLIA [id number] [place] [id number] MCHC (RBC) [Mass/Vol] 32.1 g/dL Normal 30.5-36.0 [facility] Comment on above: Order Comment: Speci men Type: BLOOD SPECIMENOrdering Facility: [facility] Address: [address] [place], [place] [address] Result Comment: Suresh ected result: Previously reported as 32.1 g/dL on 02/15/2022 at 1:41 PM EDT.Corrected result: Previously reported as 32.3 g/dL on 02/15/2022 at 11:23 PM EDT. Performed By: #### 5 7021-8 ####[facility] LABCLIA [id number] [address] LABCLIA [id number] [place] [address] MCV (RBC) [Entitic vol] 104.2 fL High 80.0-100.0 [facility] Comment on above: Order Comment: Speci men Type: BLOOD SPECIMENOrdering Facility: [facility] Address: [address] [place] [address] Result Comment: Suresh ected result: Previously reported as 104.2 fL on 02/15/2022 at 1:41 PM EDT.Corrected result: Previously reported as 105.1 fL on 02/15/2022 at 11:23 PM EDT. Performed By: #### 5 7021-8 ####[facility] LABCLIA [id number] [address] LABCLIA [id number] [place] [address] Neutrophils (Bld) [#/Vol] 3.54 10*3/uL Normal 1.45-7.50 [facility] Comment on above: Order Comment: Speci men Type: BLOOD SPECIMENOrdering Facility: [facility] Address: [address] [place], [place] [address] Performed By: #### 5 7021-8 ####[facility] LABCLIA [id number] [address] LABCLIA [id number] [place] [address] Neutrophils/100 WBC (Bld) 73.0 % Normal [facility] Comment on above: Order Comment: Speci men Type: BLOOD SPECIMENOrdering Facility: [facility] Address: [address] [place], [place] [address] Performed By: #### 5 7021-8 ####[facility] LABCLIA [id number] [address] LABCLIA [id number] [place] [address] Nucleated RBC/100 WBC (Bld) [Ratio] 0.0 /100 WBC Normal [facility] Comment on above: Order Comment: Speci men Type: BLOOD SPECIMENOrdering Facility: [facility] Address: [address] [place] [address] Performed By: #### 5 7021-8 ####[facility] LABCLIA [id number] [address] LABCLIA [id number] [place] [address] Ovalocytes LM Ql (Bld) Few Normal [facility] Comment on above: Order Comment: Speci men Type: BLOOD SPECIMENOrdering Facility: [facility] Address: [address] [place] [address] Performed By: #### 5 7021-8 ####[facility] LABCLIA [id number] [address] LABCLIA [id number] [place] [address] PLATELET ESTIMATE Adequate Normal [facility] Comment on above: Order Comment: Speci men Type: BLOOD SPECIMENOrdering Facility: [facility] Address: [address] [place] [address] Performed By: #### 5 7021-8 ####[facility] LABCLIA [id number] [address] LABCLIA [id number] [place] [id number] Platelet mean volume (Bld) [Entitic vol] 14.0 fL High 9.0-12.7 [facility] Comment on above: Order Comment: Speci men Type: BLOOD SPECIMENOrdering Facility: [facility] Address: [address] [place] [address] Result Comment: Suresh ected result: Previously reported as 14.0 fL on 02/15/2022 at 1:41 PM EDT.Corrected result: Previously reported as 15.1 fL on 02/15/2022 at 11:23 PM EDT. Performed By: #### 5 7021-8 ####[facility] LABCLIA [id number] [address] LABCLIA [id number] [place] [address] Platelets (Bld) [#/Vol] 170 10*3/uL Normal 150-400 [facility] Comment on above: Order Comment: Speci men Type: BLOOD SPECIMENOrdering Facility: [facility] Address: [address] [place] [address] Result Comment: [facility] Centerp le checked for clotCorrected result: Previously reported as 170 k/uL on 02/15/2022 at 1:41 PM EDT.Corrected result: Previously reported as 158 k/uL on 02/15/2022 at 11:23 PM EDT. Performed By: #### 5 7021-8 ####[facility] LABCLIA [id number] [address] LABCLIA [id number] [place] [address] Polychromasia LM Ql (Bld) Slight Normal [facility] Comment on above: Order Comment: Speci men Type: BLOOD SPECIMENOrdering Facility: [facility] Address: [address] [place] [address] Performed By: #### 5 7021-8 ####[facility] LABCLIA [id number] [address] LABCLIA [id number] [place] [address] RBC (Bld) [#/Vol] 2.36 10*6/uL Low 4.20-6.00 [facility] Comment on above: Order Comment: Speci men Type: BLOOD SPECIMENOrdering Facility: [facility] Address: [address] [place] [address] Performed By: #### 5 7021-8 ####[facility] LABCLIA [id number] [address] LABCLIA [id number] [place] [address] RBC FRAGMENTS Few Abnormal None Seen [facility] Comment on above: Order Comment: Speci men Type: BLOOD SPECIMENOrdering Facility: [facility] Address: [address] [place] [address] Performed By: #### 5 7021-8 ####[facility] LABCLIA [id number] [address] LABCLIA [id number] [place] [address] RED CELL MORPH Reviewed: see result s of individual morphologies Normal [facility] Comment on above: Order Comment: Speci men Type: BLOOD SPECIMENOrdering Facility: [facility] Address: [address] [place] [address] Performed By: #### 5 7021-8 ####[facility] LABCLIA [id number] [address] LABCLIA [id number] [place] [address] WAM - ABS BASO 0.00 k/uL Normal <0.11 [facility] Comment on above: Order Comment: Speci men Type: BLOOD SPECIMENOrdering Facility: [facility] Address: [address] [place], [place] [phone] Performed By: #### 5 7021-8 ####[facility] LABCLIA [id number] [place] [id number] [facility] LABCLIA [id number] [place] [address] WAM - ABS MONO 0.44 k/uL Normal <0.87 [facility] Comment on above: Order Comment: Speci men Type: BLOOD SPECIMENOrdering Facility: [facility] Address: [address] [place] [address] Performed By: #### 5 7021-8 ####[facility] LABCLIA [id number] [address] LABCLIA [id number] [place] [address] WAM - MONO% 9.0 % Normal [facility] Comment on above: Order Comment: Speci men Type: BLOOD SPECIMENOrdering Facility: [facility] Address: [address] [place] [address] Performed By: #### 5 7021-8 ####[facility] LABCLIA [id number] [address] LABCLIA [id number] [place] [address] WAM ABSOLUTE NRBC <0.01 Normal <0.01 [facility] Comment on above: Order Comment: Speci men Type: BLOOD SPECIMENOrdering Facility: [facility] Address: [address] [place] [address] Performed By: #### 5 7021-8 ####[facility] LABCLIA [id number] [address] LABCLIA [id number] [place] [address] WBC (Bld) [#/Vol] 4.85 10*3/uL Normal 3.70-11.00 [facility] Comment on above: Order Comment: Speci men Type: BLOOD SPECIMENOrdering Facility: [facility] Address: [address] [place] [address] Performed By: #### 5 7021-8 ####[facility] LABCLIA [id number] [id number] [address] [facility] LABCLIA [id number] [place] [address] Comprehensive metabolic 2000 panelon 02-15-2022 Albumin [Mass/Vol] 3.9 g/dL Normal 3.9-4.9 [facility] Comment on above: Order Comment: Speci men Type: BLOOD SPECIMENOrdering Facility: [facility] Address: [address] [place] [address] Performed By: #### 2 532-0, 92504-3 ####[facility] LABCLIA [id number] [place] [address] ALP [Catalytic activity/Vol] 64 U/L Normal 38-113 [facility] Comment on above: Order Comment: Speci men Type: BLOOD SPECIMENOrdering Facility: [facility] Address: [address] [place] [address] Performed By: #### 2 532-0, 62822-4 ####[facility] LABCLIA [id number] [place] [address] ALT [Catalytic activity/Vol] 26 U/L Normal 10-54 [facility] Comment on above: Order Comment: Speci men Type: BLOOD SPECIMENOrdering Facility: [facility] Address: [address] [place] [address] Performed By: #### 2 532-0, 12918-8 ####[facility] LABCLIA [id number] [place] [address] Anion gap [Moles/Vol] 13 mmol/L Normal 9-18 [facility] Comment on above: Order Comment: Speci men Type: BLOOD SPECIMENOrdering Facility: [facility] Address: [address] [place] [address] Performed By: #### 2 532-0, 50127-8 ####[facility] LABCLIA [id number] [place] [address] AST [Catalytic activity/Vol] 11 U/L Low 14-40 [facility] Comment on above: Order Comment: Speci men Type: BLOOD SPECIMENOrdering Facility: [facility] Address: [address] [place] [address] Performed By: #### 2 532-0, 53166-7 ####[facility] LABCLIA [id number] [place] [address] Bilirubin [Mass/Vol] 0.4 mg/dL Normal 0.2-1.3 [facility] Comment on above: Order Comment: Speci men Type: BLOOD SPECIMENOrdering Facility: [facility] Address: [address] [place] [address] Performed By: #### 2 532-0, 61252-3 ####[facility] LABIA [id number] [place] [address] Calcium [Mass/Vol] 8.9 mg/dL Normal 8.5-10.2 [facility] Comment on above: Order Comment: Speci men Type: BLOOD SPECIMENOrdering Facility: [facility] Address: [address] [place] [address] Performed By: #### 2 532-0, ####[facility] LABIA [id number] [place] [address] Chloride [Moles/Vol] 102 mmol/L Normal 97-105 [facility] Comment on above: Order Comment: Speci men Type: BLOOD SPECIMENOrdering Facility: [facility] Address: [address] [place] [address] Performed By: #### 2 532-0, ####[facility] LABIA [id number] [place] [address] CO2 [Moles/Vol] 26 mmol/L Normal 22-30 [facility] Comment on above: Order Comment: Speci men Type: BLOOD SPECIMENOrdering Facility: [facility] Address: [address] [place] [phone] Performed By: #### 2 532-0, 09630-2 ####[facility] LABIA [id number] [place] [address] Creatinine [Mass/Vol] 2.24 mg/dL High 0.73-1.22 [facility] Comment on above: Order Comment: Speci men Type: BLOOD SPECIMENOrdering Facility: [facility] Address: [address] [place], [place] [address] Performed By: #### 2 532-0, 12154-4 ####[facility] LABIA [id number] [place] [address] ESTIMATED GLOMERULAR FILTRATION RATE 28 mL/min/1.73m??? Low >=60 [facility] Comment on above: Order Comment: Speci men Type: BLOOD SPECIMENOrdering Facility: [facility] Address: [address] [place] [address] Result Comment: Faye mated Glomerular Filtration Rate [...] actual GFR. Performed By: #### 2 532-0, 95982-6 ####[facility] LABIA [id number] [place] [address] Glucose [Mass/Vol] 206 mg/dL High 74-99 [facility] Comment on above: Order Comment: Speci men Type: BLOOD SPECIMENOrdering Facility: [facility] Address: [address] [place], [place] [address] Result Comment: The [place] [employer] (ADA) provides guidance for cutoff [...] Standards of Medical Care in Diabetes 2016, [place] [employer]. Diabetes Care. 2016.39(Suppl 1). Performed By: #### 2 532-0, 05692-3 ####[facility] LABCLIA [id number] [place] [address] Potassium [Moles/Vol] 3.7 mmol/L Normal 3.7-5.1 [facility] Comment on above: Order Comment: Speci men Type: BLOOD SPECIMENOrdering Facility: [facility] Address: [address] [place] [address] Performed By: #### 2 532-0, 69482-8 ####[facility] LABIA [id number] [place] [address] Protein [Mass/Vol] 6.0 g/dL Low 6.3-8.0 [facility] Comment on above: Order Comment: Speci men Type: BLOOD SPECIMENOrdering Facility: [facility] Address: [address] [place] [address] Performed By: #### 2 532-0, 85478-4 ####[facility] LABIA [id number] [place] [address] Sodium [Moles/Vol] 141 mmol/L Normal 136-144 [facility] Comment on above: Order Comment: Speci men Type: BLOOD SPECIMENOrdering Facility: [facility] Address: [address] [place] [address] Performed By: #### 2 532-0, 33710-0 ####[facility] LABCLIA [id number] [place] [address] Urea nitrogen [Mass/Vol] 52 mg/dL High 9-24 [facility] Comment on above: Order Comment: Speci men Type: BLOOD SPECIMENOrdering Facility: [facility] Address: [address] [place] [address] Performed By: #### 2 532-0, 98315-9 ####[facility] LABCLIA [id number] [place] [address] Albumin [Mass/Vol] 3.9 g/dL 3.9 - 4.9 g/dL [facility] ALP [Catalytic activity/Vol] 64 U/L 38 - 113 U/L [facility] ALT [Catalytic activity/Vol] 26 U/L 10 - 54 U/L [facility] Anion gap [Moles/Vol] 13 mmol/L 9 - 18 mmol/L [facility] AST [Catalytic activity/Vol] 11 U/L Low 14 - 40 U/L [facility] Bilirubin [Mass/Vol] 0.4 mg/dL 0.2 - 1.3 mg/dL [facility] Calcium [Mass/Vol] 8.9 mg/dL 8.5 - 10.2 mg/dL [facility] Chloride [Moles/Vol] 102 mmol/L 97 - 105 mmol/L [facility] CO2 [Moles/Vol] 26 mmol/L 22 - 30 mmol/L [facility] Creatinine [Mass/Vol] 2.24 mg/dL High 0.73 - 1.22 mg/dL [facility] Estimated Glomerular Filtration Rate 28 mL/min/1.73m Low >=60 mL/min/1.73m [facility] Glucose [Mass/Vol] 206 mg/dL High 74 - 99 mg/dL [facility] Potassium [Moles/Vol] 3.7 mmol/L 3.7 - 5.1 mmol/L [facility] Protein [Mass/Vol] 6.0 g/dL Low 6.3 - 8.0 g/dL [facility] Sodium [Moles/Vol] 141 mmol/L 136 - 144 mmol/L [facility] Urea nitrogen [Mass/Vol] 52 mg/dL High 9 - 24 mg/dL [facility] LD LACTATE DEHYDROon 022 LDH [Catalytic activity/Vol] 250 U/L High 135 - 225 U/L [facility] LDH SerPl-cCncon 02-15-2022 LDH [Catalytic activity/Vol] 250 U/L High 135-225 [facility] Comment on above: Order Comment: Speci men Type: BLOOD SPECIMENOrdering Facility: [facility] Address: [address] [place] [address] Performed By: #### 2 532-0, 34623-8 ####[facility] LABCLIA [id number] [place] [address] CBC W Auto Differential pane l (Bld)on 02-11-2022 Basophils (Bld) [#/Vol] 0.03 10*3/uL Normal <0.11 [facility] Comment on above: Order Comment: Speci men Type: BLOOD SPECIMENOrdering Facility: [facility] Address: [address] [place] [address] Performed By: #### 5 7021-8 ####[facility] LABCLIA [id number] [place] [address] Basophils/100 WBC (Bld) 1.2 % Normal [facility] Comment on above: Order Comment: Speci men Type: BLOOD SPECIMENOrdering Facility: [facility] Address: [address] [place] [address] Performed By: #### 5 7021-8 ####[facility] LABCLIA [id number] [place] [address] Differential cell count method Nom (Bld) Auto Normal [facility] Comment on above: Order Comment: Speci men Type: BLOOD SPECIMENOrdering Facility: [facility] Address: [address] [place] [address] Performed By: #### 5 7021-8 ####[facility] LABCLIA [id number] [place] [address] Eosinophils (Bld) [#/Vol] 10*3/uL Normal <0.46 [facility] Comment on above: Order Comment: Speci men Type: BLOOD SPECIMENOrdering Facility: [facility] Address: [address] [place] [address] Performed By: #### 5 7021-8 ####[facility] LABCLIA [id number] [place] [address] Eosinophils/100 WBC (Bld) 0.0 % Normal [facility] [facility] Comment on above: Order Comment: Speci men Type: BLOOD SPECIMENOrdering Facility: [facility] Address: [address] [place] [address] Performed By: #### 5 7021-8 ####[facility] LABCLIA [id number] [place] [address] Erythrocyte distribution width (RBC) [Ratio] 23.6 % High 11.5-15.0 [facility] Comment on above: Order Comment: Speci men Type: BLOOD SPECIMENOrdering Facility: [facility] Address: [address] [place] [address] Performed By: #### 5 7021-8 ####[facility] LABCLIA [id number] [place] [address] Hematocrit (Bld) [Volume fraction] 25.5 % Low 39.0-51.0 [facility] Comment on above: Order Comment: Speci men Type: BLOOD SPECIMENOrdering Facility: [facility] Address: [address] [place] [address] Performed By: #### 5 7021-8 ####[facility] LABCLIA [id number] [place] [address] Hemoglobin (Bld) [Mass/Vol] 8.1 g/dL Low 13.0-17.0 [facility] Comment on above: Order Comment: Speci men Type: BLOOD SPECIMENOrdering Facility: [facility] Address: [address] [place] [address] Performed By: #### 5 7021-8 ####[facility] LABCLIA [id number] [place] [address] IMMATURE GRAN % 1.6 % Normal [facility] Comment on above: Order Comment: Speci men Type: BLOOD SPECIMENOrdering Facility: [facility] Address: [address] [place] [address] Performed By: #### 5 7021-8 ####[facility] LABCLIA [id number] [place] [address] IMMATURE GRAN ABS 0.04 k/uL Normal <0.10 [facility] Comment on above: Order Comment: Speci men Type: BLOOD SPECIMENOrdering Facility: [facility] Address: [address] [place] [address] Performed By: #### 5 7021-8 ####[facility] LABCLIA [id number] [place] [address] Lymphocytes (Bld) [#/Vol] 1.17 10*3/uL Normal 1.00-4.00 [facility] Comment on above: Order Comment: Speci men Type: BLOOD SPECIMENOrdering Facility: [facility] Address: [address] [place] [address] Performed By: #### 5 7021-8 ####[facility] LABCLIA [id number] [place] [address] Lymphocytes/100 WBC (Bld) 46.4 % Normal [facility] Comment on above: Order Comment: Speci men Type: BLOOD SPECIMENOrdering Facility: [facility] Address: [address] [place] [address] Performed By: #### 5 7021-8 ####[facility] LABCLIA [id number] [place] [address] MCH (RBC) [Entitic mass] 33.8 pg Normal 26.0-34.0 [facility] Comment on above: Order Comment: Speci men Type: BLOOD SPECIMENOrdering Facility: [facility] Address: [address] [place] [address] Performed By: #### 5 7021-8 ####[facility] LABCLIA [id number] [place] [address] MCHC (RBC) [Mass/Vol] 31.8 g/dL Normal 30.5-36.0 [facility] Comment on above: Order Comment: Speci men Type: BLOOD SPECIMENOrdering Facility: [facility] Address: [address] [place] [address] Performed By: #### 5 7021-8 ####[facility] LABCLIA [id number] [place] [address] MCV (RBC) [Entitic vol] 106.3 fL High 80.0-100.0 [facility] Comment on above: Order Comment: Speci men Type: BLOOD SPECIMENOrdering Facility: [facility] Address: [address] [place] [address] Performed By: #### 5 7021-8 ####[facility] LABCLIA [id number] [place] [address] Monocytes (Bld) [#/Vol] 0.58 10*3/uL Normal <0.87 [facility] Comment on above: Order Comment: Speci men Type: BLOOD SPECIMENOrdering Facility: [facility] Address: [address] [place] [address] Performed By: #### 5 7021-8 ####[facility] LABCLIA [id number] [place] [address] Monocytes/100 WBC (Bld) 23.0 % Normal [facility] Comment on above: Order Comment: Speci men Type: BLOOD SPECIMENOrdering Facility: [facility] Address: [address] [place] [address] Performed By: #### 5 7021-8 ####[facility] LABCLIA [id number] [place] [address] Neutrophils (Bld) [#/Vol] 0.70 10*3/uL Low 1.45-7.50 [facility] Comment on above: Order Comment: Speci men Type: BLOOD SPECIMENOrdering Facility: [facility] Address: [address] [place] [address] Performed By: #### 5 7021-8 ####[facility] LABCLIA [id number] [place] [address] Neutrophils/100 WBC (Bld) 27.8 % Normal [facility] Comment on above: Order Comment: Speci men Type: BLOOD SPECIMENOrdering Facility: [facility] Address: [address] [place] [address] Performed By: #### 5 7021-8 ####[facility] LABCLIA [id number] [place] [address] Nucleated RBC (Bld) [#/Vol] 10*3/uL Normal <0.01 [facility] Comment on above: Order Comment: Speci men Type: BLOOD SPECIMENOrdering Facility: [facility] Address: [address] [place] [address] Performed By: #### 5 7021-8 ####[facility] LABCLIA [id number] [place] [address] Nucleated RBC/100 WBC (Bld) [Ratio] 0.0 /100 WBC Normal [facility] Comment on above: Order Comment: Speci men Type: BLOOD SPECIMENOrdering Facility: [facility] Address: [address] [place], [place] [address] Performed By: #### 5 7021-8 ####[facility] LABCLIA [id number] [place] [address] Platelet mean volume (Bld) [Entitic vol] 12.8 fL High 9.0-12.7 [facility] Comment on above: Order Comment: Speci men Type: BLOOD SPECIMENOrdering Facility: [facility] Address: [address] [place] [address] Performed By: #### 5 7021-8 ####[facility] LABCLIA [id number] [place] [address] Platelets (Bld) [#/Vol] 135 10*3/uL Low 150-400 [facility] Comment on above: Order Comment: Speci men Type: BLOOD SPECIMENOrdering Facility: [facility] Address: [address] [place] [address] Performed By: #### 5 7021-8 ####[facility] LABIA [id number] [place] [address] RBC (Bld) [#/Vol] 2.40 10*6/uL Low 4.20-6.00 [facility] Comment on above: Order Comment: Speci men Type: BLOOD SPECIMENOrdering Facility: [facility] Address: [address] [place] [address] Performed By: #### 5 7021-8 ####[facility] [id number] [place] [address] WBC (Bld) [#/Vol] 2.52 10*3/uL Low 3.70-11.00 [facility] Comment on above: Order Comment: Speci men Type: BLOOD SPECIMENOrdering Facility: [facility] Address: [address] [place] [address] Performed By: #### 5 7021-8 ####[facility] [id number] [place] [address] CNOVSPon 02-11-2022 CNOVSP Normal [facility] Comprehensive metabolic 2000 panelon 02-11-2022 Albumin [Mass/Vol] 4.0 g/dL Normal 3.9-4.9 [facility] Comment on above: Order Comment: Speci men Type: BLOOD SPECIMENOrdering Facility: [facility] Address: [address] [place] [address] Performed By: #### 2 4323-8, 2532-0 ####[facility] LABIA [id number] [place] [address] ALP [Catalytic activity/Vol] 79 U/L Normal 38-113 [facility] Comment on above: Order Comment: Speci men Type: BLOOD SPECIMENOrdering Facility: [facility] Address: [address] [place] [address] Performed By: #### 2 4323-8, 2532-0 ####[facility] LABCLIA [id number] [place] [address] ALT [Catalytic activity/Vol] 23 U/L Normal 10-54 [facility] Comment on above: Order Comment: Speci men Type: BLOOD SPECIMENOrdering Facility: [facility] Address: [address] [place] [address] Performed By: #### 2 4323-8, 2532-0 ####[facility] LABCLIA [id number] [place] [address] Anion gap [Moles/Vol] 10 mmol/L Normal 9-18 [facility] Comment on above: Order Comment: Speci men Type: BLOOD SPECIMENOrdering Facility: [facility] Address: [address] [place] [address] Performed By: #### 2 4323-8, 2532-0 ####[facility] LABCLIA [id number] [place] [address] AST [Catalytic activity/Vol] 14 U/L Normal 14-40 [facility] Comment on above: Order Comment: Speci men Type: BLOOD SPECIMENOrdering Facility: [facility] Address: [address] [place], [place] [address] Performed By: #### 2 4323-8, 2532-0 ####[facility] LABCLIA [id number] [place] [address] Bilirubin [Mass/Vol] 0.6 mg/dL Normal 0.2-1.3 [facility] Comment on above: Order Comment: Speci men Type: BLOOD SPECIMENOrdering Facility: [facility] Address: [address] Performed By: #### 2 4323-8, 2531-0 ####[facility] LABCLIA [id number] [place] [address] Calcium [Mass/Vol] 8.5 mg/dL Normal 8.5-10.2 [facility] Comment on above: Order Comment: Speci men Type: BLOOD SPECIMENOrdering Facility: [facility] Address: [address] [place] [address] Performed By: #### 2 4323-8, 2531-0 ####[facility] LABCLIA [id number] [place] [address] Chloride [Moles/Vol] 101 mmol/L Normal 97-105 [facility] Comment on above: Order Comment: Speci men Type: BLOOD SPECIMENOrdering Facility: [facility] Address: [address] [place] [address] Performed By: #### 2 4328, 2531-0 ####[facility] LABIA [id number] [place] [address] CO2 [Moles/Vol] 29 mmol/L Normal 22-30 [facility] Comment on above: Order Comment: Speci men Type: BLOOD SPECIMENOrdering Facility: [facility] Address: [address] [place] [address] Performed By: #### 2 4328, 2531-0 ####[facility] LABCLIA [id number] [place] [address] Creatinine [Mass/Vol] 2.06 mg/dL High 0.73-1.22 [facility] Comment on above: Order Comment: Speci men Type: BLOOD SPECIMENOrdering Facility: [facility] Address: [address] [place], [place] [address] Performed By: #### 2 4323-8, 2-0 ####[facility] LABCLIA [id number] [place] [address] ESTIMATED GLOMERULAR FILTRATION RATE 31 mL/min/1.73m??? Low >=60 [facility] Comment on above: Order Comment: Davi avendaño Type: BLOOD SPECIMENOrdering Facility: [facility] Address: [address] [place] [address] Result Comment: Faye mated Glomerular Filtration Rate [...] GFR. Performed By: #### 2 4323-8, 2531-0 ####[facility] LABCLIA [id number] [place] [address] Glucose [Mass/Vol] 129 mg/dL High 74-99 [facility] Comment on above: Order Comment: Davi avendaño Type: BLOOD SPECIMENOrdering Facility: [facility] Address: [address] [place] [address] Result Comment: The [place] [employer] (ADA) provides guidance for cutoff [...] Standards of Medical Care in Diabetes 2016, [place] [employer]. Diabetes Care. 2016.39(Suppl 1). Performed By: #### 2 4323-8, 0 ####[facility] LABCLIA [id number] [place] [address] Potassium [Moles/Vol] 4.4 mmol/L Normal 3.7-5.1 [facility] Comment on above: Order Comment: Speci men Type: BLOOD SPECIMENOrdering Facility: [facility] Address: [address] [place], [place] [address] Performed By: #### 2 4323-8, 2531-0 ####[facility] LABCLIA [id number] [place] [address] Protein [Mass/Vol] 6.2 g/dL Low 6.3-8.0 [facility] Comment on above: Order Comment: Speci men Type: BLOOD SPECIMENOrdering Facility: [facility] Address: [address] [place], [place] [address] Performed By: #### 2 4323-8, 2531-0 ####[facility] LABIA [id number] [place] [address] Sodium [Moles/Vol] 140 mmol/L Normal 136-144 [facility] Comment on above: Order Comment: Speci men Type: BLOOD SPECIMENOrdering Facility: [facility] Address: [address] [place], [place] [address] Performed By: #### 2 4323-8, 2531-0 ####[facility] LABIA [id number] [place] [address] Urea nitrogen [Mass/Vol] 21 mg/dL Normal 9-24 [facility] Comment on above: Order Comment: Speci men Type: BLOOD SPECIMENOrdering Facility: [facility] Address: [address] [place], [place] [address] Performed By: #### 2 4323-8, 2531-0 ####[facility] LABIA [id number] [place] [address] LDH SerPl-cCncon 02-11-2022 LDH [Catalytic activity/Vol] 239 U/L High 135-225 [facility] Comment on above: Order Comment: Speci men Type: BLOOD SPECIMENOrdering Facility: [facility] Address: [address] [place], [place] [address] Performed By: #### 2 4323-8, 2532-0 ####[facility] LABCLIA [id number] [place] [address] CBC W Auto Differential pane l (Bld)on 02-04-2022 Anisocytosis Ql (Bld) Present Normal [facility] Comment on above: Order Comment: Speci men Type: BLOOD SPECIMENOrdering Facility: [facility] Address: [address] [place] [address] Performed By: #### 5 7021-8 ####[facility] LABCLIA [id number] [address] LABCLIA [id number] [place] [address] [place] Basophils/100 WBC (Bld) 0.9 % Normal [facility] Comment on above: Order Comment: Speci men Type: BLOOD SPECIMENOrdering Facility: [facility] Address: [address] [place] [address] Performed By: #### 5 7021-8 ####[facility] LABCLIA [id number] [address] LABCLIA [id number] [place] [address] [place] Eosinophils (Bld) [#/Vol] 0.06 10*3/uL Normal <0.46 [facility] Comment on above: Order Comment: Speci men Type: BLOOD SPECIMENOrdering Facility: [facility] Address: [address] [place], [place] [address] Performed By: #### 5 7021-8 ####[facility] LABCLIA [id number] [address] LABCLIA [id number] [place] [address] [place] Eosinophils/100 WBC (Bld) 2.6 % Normal [facility] Comment on above: Order Comment: Speci men Type: BLOOD SPECIMENOrdering Facility: [facility] Address: [address] [place] [address] Performed By: #### 5 7021-8 ####[facility] LABCLIA [id number] [address] LABCLIA [id number] [place] [address] [place] Erythrocyte distribution width (RBC) [Ratio] 23.8 % High 11.5-15.0 [facility] Comment on above: Order Comment: Speci men Type: BLOOD SPECIMENOrdering Facility: [facility] Address: [address] [place] [address] Performed By: #### 5 7021-8 ####[facility] LABCLIA [id number] [address] LABCLIA [id number] [place] [address] [place] Hematocrit (Bld) [Volume fraction] 21.4 % Low 39.0-51.0 [facility] Comment on above: Order Comment: Speci men Type: BLOOD SPECIMENOrdering Facility: [facility] Address: [address] [place] [address] Performed By: #### 5 7021-8 ####[facility] LABCLIA [id number] [address] LABCLIA [id number] [place] [address] [place] Hemoglobin (Bld) [Mass/Vol] 6.8 g/dL Low 13.0-17.0 [facility] Comment on above: Order Comment: Speci men Type: BLOOD SPECIMENOrdering Facility: [facility] Address: [address] [place] [address] Performed By: #### 5 7021-8 ####[facility] LABCLIA [id number] [address] LABCLIA [id number] [place] [address] [place] Lymphocytes (Bld) [#/Vol] 0.82 10*3/uL Low 1.00-4.00 [facility] Comment on above: Order Comment: Speci men Type: BLOOD SPECIMENOrdering Facility: [facility] Address: [address] [place] [address] Performed By: #### 5 7021-8 ####[facility] LABCLIA [id number] [address] LABCLIA [id number] [place] [address] [place] Lymphocytes/100 WBC (Bld) 38.8 % Normal [facility] Comment on above: Order Comment: Speci men Type: BLOOD SPECIMENOrdering Facility: [facility] Address: [address] [place], [place] [address] Performed By: #### 5 7021-8 ####[facility] LABCLIA [id number] [address] LABCLIA [id number] [place] [address] [place] MCH (RBC) [Entitic mass] 34.7 pg High 26.0-34.0 [facility] Comment on above: Order Comment: Speci men Type: BLOOD SPECIMENOrdering Facility: [facility] Address: [address] [place], [place] [address] Performed By: #### 5 7021-8 ####[facility] LABCLIA [id number] [address] LABCLIA [id number] [place] [address] [place] MCHC (RBC) [Mass/Vol] 31.8 g/dL Normal 30.5-36.0 [facility] Comment on above: Order Comment: Speci men Type: BLOOD SPECIMENOrdering Facility: [facility] Address: [address] [place] [address] Performed By: #### 5 7021-8 ####[facility] LABCLIA [id number] [address] LABCLIA [id number] [place] [address] [place] MCV (RBC) [Entitic vol] 109.2 fL High 80.0-100.0 [facility] Comment on above: Order Comment: Speci men Type: BLOOD SPECIMENOrdering Facility: [facility] Address: [address] [place] [address] Performed By: #### 5 7021-8 ####[facility] LABCLIA [id number] [address] LABCLIA [id number] [place] [address] [place] Neutrophils (Bld) [#/Vol] 0.93 10*3/uL Low 1.45-7.50 [facility] Comment on above: Order Comment: Speci men Type: BLOOD SPECIMENOrdering Facility: [facility] Address: [address] [place], [place] [address] Performed By: #### 5 7021-8 ####[facility] LABCLIA [id number] [address] LABCLIA [id number] [place] [address] [place] Neutrophils/100 WBC (Bld) 43.9 % Normal [facility] Comment on above: Order Comment: Speci men Type: BLOOD SPECIMENOrdering Facility: [facility] Address: [address] [place], [place] [address] Performed By: #### 5 7021-8 ####[facility] LABCLIA [id number] [place] [id number] LABCLIA [id number] [place] [address] [place] Nucleated RBC/100 WBC (Bld) [Ratio] 0.0 /100 WBC Normal [facility] Comment on above: Order Comment: Speci men Type: BLOOD SPECIMENOrdering Facility: [facility] Address: [address] [place] [address] Performed By: #### 5 7021-8 ####[facility] LABCLIA [id number] [address] LABCLIA [id number] [place] [address] [place] Ovalocytes LM Ql (Bld) Few Normal [facility] Comment on above: Order Comment: Speci men Type: BLOOD SPECIMENOrdering Facility: [facility] Address: [address] [place] [address] Performed By: #### 5 7021-8 ####[facility] LABCLIA [id number] [address] LABCLIA [id number] [place] [address] [place] PLATELET ESTIMATE Decreased Normal [facility] Comment on above: Order Comment: Speci men Type: BLOOD SPECIMENOrdering Facility: [facility] Address: [address] [place] [address] Performed By: #### 5 7021-8 ####[facility] LABCLIA [id number] [address] LABCLIA [id number] [place] [address] [place] Platelet mean volume (Bld) [Entitic vol] 13.0 fL High 9.0-12.7 [facility] Comment on above: Order Comment: Speci men Type: BLOOD SPECIMENOrdering Facility: [facility] Address: [address] [place] [address] Performed By: #### 5 7021-8 ####[facility] LABCLIA [id number] [address] LABCLIA [id number] [place] [address] [place] Platelets (Bld) [#/Vol] 54 10*3/uL Low 150-400 [facility] Comment on above: Order Comment: Speci men Type: BLOOD SPECIMENOrdering Facility: [facility] Address: [address] [place] [address] Result Comment: Samp le checked for clot Performed By: #### 5 7021-8 ####[facility] LABCLIA [id number] [address] LABCLIA [id number] [place] [address] [place] Polychromasia LM Ql (Bld) Slight Normal [facility] Comment on above: Order Comment: Speci men Type: BLOOD SPECIMENOrdering Facility: [facility] Address: [address] [place] [address] Performed By: #### 5 7021-8 ####[facility] LABCLIA [id number] [address] LABCLIA [id number] [place] [address] [place] RBC (Bld) [#/Vol] 1.96 10*6/uL Low 4.20-6.00 [facility] Comment on above: Order Comment: Speci men Type: BLOOD SPECIMENOrdering Facility: [facility] Address: [address] [place] [address] Performed By: #### 5 7021-8 ####[facility] LABCLIA [id number] [place] [id number] LABCLIA [id number] [place] [address] [place] RBC FRAGMENTS Few Abnormal None Seen [facility] Comment on above: Order Comment: Speci men Type: BLOOD SPECIMENOrdering Facility: [facility] Address: [address] [place] [address] Performed By: #### 5 7021-8 ####[facility] LABCLIA [id number] [address] LABCLIA [id number] [place] [address] [place] RED CELL MORPH Reviewed: see result s of individual morphologies Normal [facility] Comment on above: Order Comment: Speci men Type: BLOOD SPECIMENOrdering Facility: [facility] Address: [address] [place] [address] Performed By: #### 5 7021-8 ####[facility] LABCLIA [id number] [address] LABCLIA [id number] [place] [address] [place] Variant lymphocytes/100 WBC (Bld) 0.0 % Normal [facility] Comment on above: Order Comment: Speci men Type: BLOOD SPECIMENOrdering Facility: [facility] Address: [address] [place] [address] Performed By: #### 5 7021-8 ####[facility] LABCLIA [id number] [address] LABCLIA [id number] [place] [address] [place] WAM - ABS BASO 0.02 k/uL Normal <0.11 [facility] Comment on above: Order Comment: Speci men Type: BLOOD SPECIMENOrdering Facility: [facility] Address: [address] [id number] Performed By: #### 5 7021-8 ####[facility] LABCLIA [id number] [address] LABCLIA [id number] [place] [address] [place] WAM - ABS MONO 0.29 k/uL Normal <0.87 [facility] Comment on above: Order Comment: Speci men Type: BLOOD SPECIMENOrdering Facility: [facility] Address: [address] [place], [place] [address] Performed By: #### 5 7021-8 ####[facility] LABCLIA [id number] [address] LABCLIA [id number] [place] [address] [place] WAM - MONO% 13.8 % Normal [facility] Comment on above: Order Comment: Speci men Type: BLOOD SPECIMENOrdering Facility: [facility] Address: [address] [place] [address] Performed By: #### 5 7021-8 ####[facility] LABCLIA [id number] [address] LABCLIA [id number] [place] [address] [place] WAM ABSOLUTE NRBC <0.01 Normal <0.01 [facility] Comment on above: Order Comment: Speci men Type: BLOOD SPECIMENOrdering Facility: [facility] Address: [address] [place] [address] Result Comment: This result was previously suppressed from the chart. Performed By: #### 5 7021-8 ####[facility] LABCLIA [id number] [address] LABCLIA [id number] [place] [address] [place] WBC (Bld) [#/Vol] 2.12 10*3/uL Low 3.70-11.00 [facility] Comment on above: Order Comment: Speci men Type: BLOOD SPECIMENOrdering Facility: [facility] Address: [address] [place] [address] Performed By: #### 5 7021-8 ####[facility] LABCLIA [id number] [place], [place] [address] LABCLIA [id number] [place] [address] [place] CNPNon 02-04-2022 CNPN Normal [facility] metabolic 2000 panelon 02-04-2022 Albumin [Mass/Vol] 3.7 g/dL Low 3.9-4.9 [facility] Comment on above: Order Comment: Speci men Type: BLOOD SPECIMENOrdering Facility: [facility] Address: [address] [place] [address] Performed By: #### 2 532-0, 13363-5 ####[facility] LABCLIA [id number] [place] [address] ALP [Catalytic activity/Vol] 70 U/L Normal 38-113 [facility] Comment on above: Order Comment: Speci men Type: BLOOD SPECIMENOrdering Facility: [facility] Address: [address] [place], [place] [address] Performed By: #### 2 532-0, 36274-9 ####[facility] LABCLIA [id number] [place] [address] ALT [Catalytic activity/Vol] 26 U/L Normal 10-54 [facility] Comment on above: Order Comment: Speci men Type: BLOOD SPECIMENOrdering Facility: [facility] Address: [address] [place], [place] [address] Performed By: #### 2 532-0, 04793-8 ####[facility] LABCLIA [id number] [place] [address] Anion gap [Moles/Vol] 14 mmol/L Normal 9-18 [facility] Comment on above: Order Comment: Speci men Type: BLOOD SPECIMENOrdering Facility: [facility] Address: [address] [place] [address] Performed By: #### 2 532-0, 94672-1 ####[facility] LABCLIA [id number] [place] [address] AST [Catalytic activity/Vol] 14 U/L Normal 14-40 [facility] Comment on above: Order Comment: Speci men Type: BLOOD SPECIMENOrdering Facility: [facility] Address: [address] [place] [address] Performed By: #### 2 532-0, ####[facility] LABCLIA [id number] [place] [address] Bilirubin [Mass/Vol] 0.6 mg/dL Normal 0.2-1.3 [facility] Comment on above: Order Comment: Speci men Type: BLOOD SPECIMENOrdering Facility: [facility] Address: [address] [place] [address] Performed By: #### 2 532-0, ####[facility] LABCLIA [id number] [place] [address] Calcium [Mass/Vol] 8.4 mg/dL Low 8.5-10.2 [facility] Comment on above: Order Comment: Speci men Type: BLOOD SPECIMENOrdering Facility: [facility] Address: [address] [place] [address] Performed By: #### 2 532-0, ####[facility] LABCLIA [id number] [place] [address] Chloride [Moles/Vol] 105 mmol/L Normal 97-105 [facility] Comment on above: Order Comment: Speci men Type: BLOOD SPECIMENOrdering Facility: [facility] Address: [address] [place] [address] Performed By: #### 2 532-0, 33683-9 ####[facility] LABCLIA [id number] [place] [address] CO2 [Moles/Vol] 24 mmol/L Normal 22-30 [facility] Comment on above: Order Comment: Speci men Type: BLOOD SPECIMENOrdering Facility: [facility] Address: [address] [place] [address] Performed By: #### 2 532-0, 13499-7 ####[facility] LABIA [id number] [place] [address] Creatinine [Mass/Vol] 1.69 mg/dL High 0.73-1.22 [facility] Comment on above: Order Comment: Speci men Type: BLOOD SPECIMENOrdering Facility: [facility] Address: [address] [place] [address] Performed By: #### 2 532-0, 98076-5 ####[facility] LABCLIA [id number] [place] [address] ESTIMATED GLOMERULAR FILTRATION RATE 40 mL/min/1.73m??? Low >=60 [facility] Comment on above: Order Comment: Speci men Type: BLOOD SPECIMENOrdering Facility: [facility] Address: [address] [place] [address] Result Comment: Faye mated Glomerular Filtration Rate [...] actual GFR. Performed By: #### 2 532-0, 90809-9 ####[facility] LABCLIA [id number] [place] [address] Glucose [Mass/Vol] 279 mg/dL High 74-99 [facility] Comment on above: Order Comment: Speci men Type: BLOOD SPECIMENOrdering Facility: [facility] Address: [address] [place] [address] Result Comment: The [place] [employer] (ADA) provides guidance for cutoff [...] Standards of Medical Care in Diabetes 2016, [place] [employer]. Diabetes Care. 2016.39(Suppl 1). Performed By: #### 2 532-0, 55395-4 ####[facility] LABCLIA [id number] [place] [address] Potassium [Moles/Vol] 4.0 mmol/L Normal 3.7-5.1 [facility] Comment on above: Order Comment: Speci men Type: BLOOD SPECIMENOrdering Facility: [facility] Address: [address] [place], [place] [address] Performed By: #### 2 532-0, 47153-0 ####[facility] LABCLIA [id number] [place] [address] Protein [Mass/Vol] 5.9 g/dL Low 6.3-8.0 [facility] Comment on above: Order Comment: Speci men Type: BLOOD SPECIMENOrdering Facility: [facility] Address: [address] [place] [address] Performed By: #### 2 532-0, 06782-1 ####[facility] LABCLIA [id number] [place] [address] Sodium [Moles/Vol] 143 mmol/L Normal 136-144 [facility] Comment on above: Order Comment: Speci men Type: BLOOD SPECIMENOrdering Facility: [facility] Address: [address] [place], [place] [address] Performed By: #### 2 532-0, 29635-0 ####[facility] LABCLIA [id number] [place] [address] Urea nitrogen [Mass/Vol] 20 mg/dL Normal 9-24 [facility] Comment on above: Order Comment: Speci men Type: BLOOD SPECIMENOrdering Facility: [facility] Address: [address] [place], [place] [address] Performed By: #### 2 532-0, 16119-2 ####[facility] LABCLIA [id number] [place] [address] HEMOGLOBIN AND HEMATOCRITon 02-04-2022 Hematocrit (Bld) [Volume fraction] 21.1 % Critically low 42.0-54.0 [facility] Comment on above: Performed By: #### T ZEHRA, PRBC #### [facility] [address] [address] [address] Benito To Hemoglobin (Bld) [Mass/Vol] 6.8 g/dL Critically low 14.0-18.0 [facility] Comment on above: Performed By: #### T ZEHRA, PRBC #### [facility] [address] [address] [address] Benito To LDH SerPl-cCncon 02-04-2022 LDH [Catalytic activity/Vol] 210 U/L Normal 135-225 [facility] Comment on above: Order Comment: Speci men Type: BLOOD SPECIMENOrdering Facility: [facility] Address: [address] [place], [place] [address] Performed By: #### 2 532-0, 83326-9 ####[facility] LABCLIA [id number] [place] [address] TYPE AND SCREENon 02-04-2022 TYPE AND SCREEN Negative Normal [facility] Comment on above: Performed By: #### P RBC, TNS #### [facility] [address] [place], [place] [address] Dr. Benito To CBC W Auto Differential pane l (Bld)on 01-30-2022 Anisocytosis Ql (Bld) Present Normal [facility] Comment on above: Order Comment: Speci men Type: BLOOD SPECIMENOrdering Facility: [facility] Address: [address] [place] [address] Performed By: #### 5 7021-8 ####[facility] LABCLIA [id number] [address] LABCLIA [id number] [place] [address] [place] Basophils/100 WBC (Bld) 0.9 % Normal [facility] Comment on above: Order Comment: Speci men Type: BLOOD SPECIMENOrdering Facility: [facility] Address: [address] [place] [address] Performed By: #### 5 7021-8 ####[facility] LABCLIA [id number] [address] LABCLIA [id number] [place] [address] [place] Dacrocytes LM Ql (Bld) Few Normal [facility] Comment on above: Order Comment: Speci men Type: BLOOD SPECIMENOrdering Facility: [facility] Address: [address] [place], [place] [address] Performed By: #### 5 7021-8 ####[facility] LABCLIA [id number] [address] LABCLIA [id number] [place] [address] [place] Differential cell count method Nom (Bld) Manual Normal [facility] Comment on above: Order Comment: Speci men Type: BLOOD SPECIMENOrdering Facility: [facility] Address: [facility] [place] [address] Performed By: #### 5 7021-8 ####[facility] LABCLIA [id number] [address] LABCLIA [id number] [place] [address] [place] Eosinophils (Bld) [#/Vol] 0.05 10*3/uL Normal <0.46 [facility] Comment on above: Order Comment: Speci men Type: BLOOD SPECIMENOrdering Facility: [facility] Address: [address] [place] [address] Performed By: #### 5 7021-8 ####[facility] LABCLIA [id number] [address] LABCLIA [id number] [place] [address] [place] Eosinophils/100 WBC (Bld) 1.8 % Normal [facility] Comment on above: Order Comment: Speci men Type: BLOOD SPECIMENOrdering Facility: [facility] Address: [address] [place], [place] [address] Performed By: #### 5 7021-8 ####[facility] LABCLIA [id number] [address] LABCLIA [id number] [place] [address] [place] Erythrocyte distribution width (RBC) [Ratio] 23.6 % High 11.5-15.0 [facility] Comment on above: Order Comment: Speci men Type: BLOOD SPECIMENOrdering Facility: [facility] Address: [address] [place], [place] [address] Performed By: #### 5 7021-8 ####[facility] LABCLIA [id number] [address] LABCLIA [id number] [place] [address] [place] Hematocrit (Bld) [Volume fraction] 23.5 % Low 39.0-51.0 [facility] Comment on above: Order Comment: Speci men Type: BLOOD SPECIMENOrdering Facility: [facility] Address: [address] [place] [address] Performed By: #### 5 7021-8 ####[facility] LABCLIA [id number] [address] LABCLIA [id number] [place] [address] [place] Hemoglobin (Bld) [Mass/Vol] 7.4 g/dL Low 13.0-17.0 [facility] Comment on above: Order Comment: Speci men Type: BLOOD SPECIMENOrdering Facility: [facility] Address: [address] [place] [address] Performed By: #### 5 7021-8 ####[facility] LABCLIA [id number] [address] LABCLIA [id number] [place] [address] [place] Lymphocytes (Bld) [#/Vol] 0.93 10*3/uL Low 1.00-4.00 [facility] Comment on above: Order Comment: Speci men Type: BLOOD SPECIMENOrdering Facility: [facility] Address: [address] [place], [place] [address] Performed By: #### 5 7021-8 ####[facility] LABCLIA [id number] [address] LABCLIA [id number] [place] [address] [place] Lymphocytes/100 WBC (Bld) 36.3 % Normal [facility] Comment on above: Order Comment: Speci men Type: BLOOD SPECIMENOrdering Facility: [facility] Address: [address] [place] [address] Performed By: #### 5 7021-8 ####[facility] LABCLIA [id number] [address] LABCLIA [id number] [place] [address] [place] MCH (RBC) [Entitic mass] 34.1 pg High 26.0-34.0 [facility] Comment on above: Order Comment: Speci men Type: BLOOD SPECIMENOrdering Facility: [facility] Address: [address] [place] [address] Performed By: #### 5 7021-8 ####[facility] LABCLIA [id number] [address] LABCLIA [id number] [place] [address] [place] MCHC (RBC) [Mass/Vol] 31.5 g/dL Normal 30.5-36.0 [facility] Comment on above: Order Comment: Speci men Type: BLOOD SPECIMENOrdering Facility: [facility] Address: [address] [place] [address] Performed By: #### 5 7021-8 ####[facility] LABCLIA [id number] [address] LABCLIA [id number] [place] [address] [place] MCV (RBC) [Entitic vol] 108.3 fL High 80.0-100.0 [facility] Comment on above: Order Comment: Speci men Type: BLOOD SPECIMENOrdering Facility: [facility] Address: [address] [place] [address] Performed By: #### 5 7021-8 ####[facility] LABCLIA [id number] [address] [facility] LABCLIA [id number] [place] [address] [place] Neutrophils (Bld) [#/Vol] 1.15 10*3/uL Low 1.45-7.50 [facility] Comment on above: Order Comment: Speci men Type: BLOOD SPECIMENOrdering Facility: [facility] Address: [address] [place] [address] Performed By: #### 5 7021-8 ####[facility] LABCLIA [id number] [address] LABCLIA [id number] [place] [address] [place] Neutrophils/100 WBC (Bld) 45.1 % Normal [facility] Comment on above: Order Comment: Speci men Type: BLOOD SPECIMENOrdering Facility: [facility] Address: [address] [place] [address] Performed By: #### 5 7021-8 ####[facility] LABCLIA [id number] [address] LABCLIA [id number] [place] [address] [place] Nucleated RBC/100 WBC (Bld) [Ratio] 0.0 /100 WBC Normal [facility] Comment on above: Order Comment: Speci men Type: BLOOD SPECIMENOrdering Facility: [facility] Address: [address] [place], [place] [address] Performed By: #### 5 7021-8 ####[facility] LABCLIA [id number] [address] LABCLIA [id number] [place] [address] [place] Ovalocytes LM Ql (Bld) Few Normal [facility] Comment on above: Order Comment: Speci men Type: BLOOD SPECIMENOrdering Facility: [facility] Address: [address] [place] [address] Performed By: #### 5 7021-8 ####[facility] LABCLIA [id number] [address] LABCLIA [id number] [place] [address] [place] PLATELET ESTIMATE Decreased Normal [facility] Comment on above: Order Comment: Speci men Type: BLOOD SPECIMENOrdering Facility: [facility] Address: [address] [place] [address] Performed By: #### 5 7021-8 ####[facility] LABCLIA [id number] [address] LABCLIA [id number] [place] [address] [place] Platelet mean volume (Bld) [Entitic vol] 12.6 fL Normal 9.0-12.7 [facility] Comment on above: Order Comment: Speci men Type: BLOOD SPECIMENOrdering Facility: [facility] Address: [address] [place] [address] Performed By: #### 5 7021-8 ####[facility] LABCLIA [id number] [address] LABCLIA [id number] [place] [address] [place] Platelets (Bld) [#/Vol] 57 10*3/uL Low 150-400 [facility] Comment on above: Order Comment: Speci men Type: BLOOD SPECIMENOrdering Facility: [facility] Address: [address] [place] [address] Result Comment: Samp le checked for clot Performed By: #### 5 7021-8 ####[facility] LABCLIA [id number] [address] LABCLIA [id number] [place] [address] [place] Platelets agranular LM Ql (Bld) Occasional Normal [facility] Comment on above: Order Comment: Speci men Type: BLOOD SPECIMENOrdering Facility: [facility] Address: [address] [place], [place] [address] Performed By: #### 5 7021-8 ####[facility] LABCLIA [id number] [address] LABCLIA [id number] [place] [address] [place] Polychromasia LM Ql (Bld) Slight Normal [facility] Comment on above: Order Comment: Speci men Type: BLOOD SPECIMENOrdering Facility: [facility] Address: [address] [place] [address] Performed By: #### 5 7021-8 ####[facility] LABCLIA [id number] [address] LABCLIA [id number] [place] [address] [place] RBC (Bld) [#/Vol] 2.17 10*6/uL Low 4.20-6.00 [facility] Comment on above: Order Comment: Speci men Type: BLOOD SPECIMENOrdering Facility: [facility] Address: [address] [place] [address] Performed By: #### 5 7021-8 ####[facility] LABCLIA [id number] [address] LABCLIA [id number] [place] [address] [place] RBC FRAGMENTS Few Abnormal None Seen [facility] Comment on above: Order Comment: Speci men Type: BLOOD SPECIMENOrdering Facility: [facility] Address: [address] [place] [address] Performed By: #### 5 7021-8 ####[facility] LABCLIA [id number] [address] LABCLIA [id number] [place] [address] [place] RED CELL MORPH Reviewed: see result s of individual morphologies Normal [facility] Comment on above: Order Comment: Speci men Type: BLOOD SPECIMENOrdering Facility: [facility] Address: [address] [place] [address] Performed By: #### 5 7021-8 ####[facility] LABCLIA [id number] [address] LABCLIA [id number] [place] [address] [place] Variant lymphocytes/100 WBC (Bld) 0.0 % Normal [facility] Comment on above: Order Comment: Speci men Type: BLOOD SPECIMENOrdering Facility: [facility] Address: [address] [place] [address] Performed By: #### 5 7021-8 ####[facility] LABCLIA [id number] [address] LABCLIA [id number] [place] [address] [place] WAM - ABS BASO 0.02 k/uL Normal <0.11 [facility] Comment on above: Order Comment: Speci men Type: BLOOD SPECIMENOrdering Facility: [facility] Address: [address] [place] [address] Performed By: #### 5 7021-8 ####[facility] LABCLIA [id number] [address] LABCLIA [id number] [place] [address] [place] WAM - ABS MONO 0.41 k/uL Normal <0.87 [facility] Comment on above: Order Comment: Speci men Type: BLOOD SPECIMENOrdering Facility: [facility] Address: [address] [place] [address] Performed By: #### 5 7021-8 ####[facility] LABCLIA [id number] [address] LABCLIA [id number] [place] [address] [place] WAM - MONO% 15.9 % Normal [facility] Comment on above: Order Comment: Speci men Type: BLOOD SPECIMENOrdering Facility: [facility] Address: [address] [place] [address] Performed By: #### 5 7021-8 ####[facility] LABCLIA [id number] [address] LABCLIA [id number] [place] [address] [place] WAM ABSOLUTE NRBC <0.01 Normal <0.01 [facility] Comment on above: Order Comment: Speci men Type: BLOOD SPECIMENOrdering Facility: [facility] Address: [address] [place] [address] Result Comment: This result was previously suppressed from the chart. Performed By: #### 5 7021-8 ####[facility] LABCLIA [id number] [address] LABCLIA [id number] [place] [address] [place] WBC (Bld) [#/Vol] 2.55 10*3/uL Low 3.70-11.00 [facility] Comment on above: Order Comment: Speci men Type: BLOOD SPECIMENOrdering Facility: [facility] Address: [address] [place] [address] Performed By: #### 5 7021-8 ####[facility] LABCLIA [id number] [place], [place] [address]ZX[facility] LABCLIA [id number] [facility] [id number] [address] [place] Comprehensive metabolic 2000 panelon 01-30-2022 Albumin [Mass/Vol] 3.7 g/dL Low 3.9-4.9 [facility] Comment on above: Order Comment: Speci men Type: BLOOD SPECIMENOrdering Facility: [facility] Address: [address] [place] [address] Performed By: #### 2 4323-8, 253-0 ####[facility] LABCLIA [id number] [place] [address] ALP [Catalytic activity/Vol] 66 U/L Normal 38-113 [facility] [facility] Comment on above: Order Comment: Speci men Type: BLOOD SPECIMENOrdering Facility: [facility] Address: [address] [place] [address] Performed By: #### 2 4323-8, 2531-0 ####[facility] LABCLIA [id number] [place] [address] ALT [Catalytic activity/Vol] 30 U/L Normal 10-54 [facility] Comment on above: Order Comment: Speci men Type: BLOOD SPECIMENOrdering Facility: [facility] Address: [address] [place] [address] Performed By: #### 2 4323-8, 2532-0 ####[facility] LABCLIA [id number] [place] [address] Anion gap [Moles/Vol] 8 mmol/L Low 9-18 [facility] Comment on above: Order Comment: Speci men Type: BLOOD SPECIMENOrdering Facility: [facility] Address: [address] [place], [place] [address] Performed By: #### 2 4323-8, 2532-0 ####[facility] LABCLIA [id number] [place] [address] AST [Catalytic activity/Vol] 17 U/L Normal 14-40 [facility] Comment on above: Order Comment: Speci men Type: BLOOD SPECIMENOrdering Facility: [facility] Address: [address] [place] [address] Performed By: #### 2 4323-8, 253-0 ####[facility] LABIA [id number] [place] [address] Bilirubin [Mass/Vol] 0.6 mg/dL Normal 0.2-1.3 [facility] Comment on above: Order Comment: Speci men Type: BLOOD SPECIMENOrdering Facility: [facility] Address: [address] [place] [address] Performed By: #### 2 4323-8, 2531-0 ####[facility] LABIA [id number] [place] [address] Calcium [Mass/Vol] 8.9 mg/dL Normal 8.5-10.2 [facility] Comment on above: Order Comment: Speci men Type: BLOOD SPECIMENOrdering Facility: [facility] Address: [address] [place] [address] Performed By: #### 2 4323-8, 2531-0 ####[facility] LABIA [id number] [place] [address] Chloride [Moles/Vol] 106 mmol/L High 97-105 [facility] Comment on above: Order Comment: Speci men Type: BLOOD SPECIMENOrdering Facility: [facility] Address: [address] [place] [address] Performed By: #### 2 4323-8, 2531-0 ####[facility] LABIA [id number] [place] [address] CO2 [Moles/Vol] 28 mmol/L Normal 22-30 [facility] Comment on above: Order Comment: Speci men Type: BLOOD SPECIMENOrdering Facility: [facility] Address: [address] [id number] Performed By: #### 2 4323-8, 2531-0 ####[facility] LABIA [id number] [place] [address] Creatinine [Mass/Vol] 1.72 mg/dL High 0.73-1.22 [facility] Comment on above: Order Comment: Cristinai men Type: BLOOD SPECIMENOrdering Facility: [facility] Address: [address] [place] [address] Performed By: #### 2 4323-8, 2531-0 ####[facility] LABIA [id number] [place] [address] ESTIMATED GLOMERULAR FILTRATION RATE 39 mL/min/1.73m??? Low >=60 [facility] Comment on above: Order Comment: Davi men Type: BLOOD SPECIMENOrdering Facility: [facility] Address: [address] [place] [address] Result Comment: Faye mated Glomerular Filtration Rate [...] GFR. Performed By: #### 2 4323-8, 2531-0 ####[facility] LABIA [id number] [place] [address] Glucose [Mass/Vol] 246 mg/dL High 74-99 [facility] Comment on above: Order Comment: Cristinai men Type: BLOOD SPECIMENOrdering Facility: [facility] Address: [address] [place] [address] Result Comment: The [place] [employer] (ADA) provides guidance for cutoff [...] Standards of Medical Care in Diabetes 2016, [place] [employer]. Diabetes Care. 2016.39(Suppl 1). Performed By: #### 2 4328, 0 ####[facility] LABCLIA [id number] [place] [address] Potassium [Moles/Vol] 4.3 mmol/L Normal 3.7-5.1 [facility] Comment on above: Order Comment: Speci men Type: BLOOD SPECIMENOrdering Facility: [facility] Address: [address] [place] [address] Performed By: #### 2 43210-02, ####[facility] LABCLIA [id number] [place] [address] Protein [Mass/Vol] 5.9 g/dL Low 6.3-8.0 [facility] Comment on above: Order Comment: Speci men Type: BLOOD SPECIMENOrdering Facility: [facility] Address: [address] [place] [address] Performed By: #### 2 4328, ####[facility] LABCLIA [id number] [place] [address] Sodium [Moles/Vol] 142 mmol/L Normal 136-144 [facility] Comment on above: Order Comment: Speci men Type: BLOOD SPECIMENOrdering Facility: [facility] Address: [address] [place], [place] [address] Performed By: #### 2 4328, 0 ####[facility] LABCLIA [id number] [place] [address] Urea nitrogen [Mass/Vol] 31 mg/dL High 9-24 [facility] Comment on above: Order Comment: Speci men Type: BLOOD SPECIMENOrdering Facility: [facility] Address: [address] [place] [address] Performed By: #### 2 4323-8, 2532-0 ####[facility] LABCLIA [id number] [place] [address] LDH SerPl-cCncon 01-30-2022 LDH [Catalytic activity/Vol] 221 U/L Normal 135-225 [facility] Comment on above: Order Comment: Speci men Type: BLOOD SPECIMENOrdering Facility: [facility] Address: [address] [place] [address] Performed By: #### 2 4323-8, 253-0 ####[facility] LABCLIA [id number] [place] [address] PRBC LEUKOREDUCEDon 01-25-20 22 PRBC LEUKOREDUCED Cross Match Result Compatible Unit Blood Type A Neg Unit Number [id number] Status Information Transfused Product ID Red Blood Cells Product Code [id number] Normal [facility] Comment on above: Performed By: #### T NS, PRBC #### [facility] [address] [place] [address] [address] [address] Benito To CBC W Auto Differential pane l (Bld)on 01-21-2022 Anisocytosis Ql (Bld) Present Normal [facility] Comment on above: Order Comment: Speci men Type: BLOOD SPECIMENOrdering Facility: [facility] Address: [address] [place] [address] Performed By: #### 5 7021-8 ####[facility] LABCLIA [id number] [address] [address] [facility] LABCLIA [id number] [place] [address] Basophils/100 WBC (Bld) 0.0 % Normal [facility] Comment on above: Order Comment: Speci men Type: BLOOD SPECIMENOrdering Facility: [facility] Address: [address] [place] [address] Performed By: #### 5 7021-8 ####[facility] LABCLIA [id number] [address] LABCLIA [id number] [place] [address] Eosinophils (Bld) [#/Vol] 0.00 10*3/uL Normal <0.46 [facility] Comment on above: Order Comment: Speci men Type: BLOOD SPECIMENOrdering Facility: [facility] Address: [address] [place] [address] Performed By: #### 5 7021-8 ####[facility] LABCLIA [id number] [address] LABCLIA [id number] [place] [address] Eosinophils/100 WBC (Bld) 0.0 % Normal [facility] Comment on above: Order Comment: Speci men Type: BLOOD SPECIMENOrdering Facility: [facility] Address: [address] [place] [address] Performed By: #### 5 7021-8 ####[facility] LABCLIA [id number] [address] LABCLIA [id number] [place] [address] Erythrocyte distribution width (RBC) [Ratio] 24.2 % High 11.5-15.0 [facility] Comment on above: Order Comment: Speci men Type: BLOOD SPECIMENOrdering Facility: [facility] Address: [address] [place] [address] Performed By: #### 5 7021-8 ####[facility] LABCLIA [id number] [address] LABCLIA [id number] [place] [address] Hematocrit (Bld) [Volume fraction] 28.3 % Low 39.0-51.0 [facility] Comment on above: Order Comment: Speci men Type: BLOOD SPECIMENOrdering Facility: [facility] Address: [address] [place] [address] Performed By: #### 5 7021-8 ####[facility] LABCLIA [id number] [address] LABCLIA [id number] [place] [address] Hemoglobin (Bld) [Mass/Vol] 9.0 g/dL Low 13.0-17.0 [facility] Comment on above: Order Comment: Speci men Type: BLOOD SPECIMENOrdering Facility: [facility] Address: [address] [place] [address] Performed By: #### 5 7021-8 ####[facility] LABCLIA [id number] [address] LABCLIA [id number] [place] [address] Lymphocytes (Bld) [#/Vol] 0.73 10*3/uL Low 1.00-4.00 [facility] Comment on above: Order Comment: Speci men Type: BLOOD SPECIMENOrdering Facility: [facility] Address: [address] [place] [address] Performed By: #### 5 7021-8 ####[facility] LABCLIA [id number] [address] LABCLIA [id number] [place] [address] Lymphocytes/100 WBC (Bld) 22.0 % Normal [facility] Comment on above: Order Comment: Speci men Type: BLOOD SPECIMENOrdering Facility: [facility] Address: [address] [place] [address] Performed By: #### 5 7021-8 ####[facility] LABCLIA [id number] [address] LABCLIA [id number] [place] [address] MCH (RBC) [Entitic mass] 33.7 pg Normal 26.0-34.0 [facility] Comment on above: Order Comment: Speci men Type: BLOOD SPECIMENOrdering Facility: [facility] Address: [address] [place] [address] Performed By: #### 5 7021-8 ####[facility] LABCLIA [id number] [address] LABCLIA [id number] [place] [address] MCHC (RBC) [Mass/Vol] 31.8 g/dL Normal 30.5-36.0 [facility] Comment on above: Order Comment: Speci men Type: BLOOD SPECIMENOrdering Facility: [facility] Address: [address] [place] [address] Performed By: #### 5 7021-8 ####[facility] LABCLIA [id number] [address] LABCLIA [id number] [place] [address] MCV (RBC) [Entitic vol] 106.0 fL High 80.0-100.0 [facility] Comment on above: Order Comment: Speci men Type: BLOOD SPECIMENOrdering Facility: [facility] Address: [address] [place] [address] Performed By: #### 5 7021-8 ####[facility] LABCLIA [id number] [address] [place] [id number] [facility] LABCLIA [id number] [place] [address] Neutrophils (Bld) [#/Vol] 2.21 10*3/uL Normal 1.45-7.50 [facility] Comment on above: Order Comment: Speci men Type: BLOOD SPECIMENOrdering Facility: [facility] Address: [address] [place] [address] Performed By: #### 5 7021-8 ####[facility] LABCLIA [id number] [address] LABCLIA [id number] [place] [address] Neutrophils/100 WBC (Bld) 67.0 % Normal [facility] Comment on above: Order Comment: Speci men Type: BLOOD SPECIMENOrdering Facility: [facility] Address: [address] [place] [address] Performed By: #### 5 7021-8 ####[facility] LABCLIA [id number] [address] LABCLIA [id number] [place] [address] Nucleated RBC/100 WBC (Bld) [Ratio] 0.0 /100 WBC Normal [facility] Comment on above: Order Comment: Speci men Type: BLOOD SPECIMENOrdering Facility: [facility] Address: [address] [place] [address] Performed By: #### 5 7021-8 ####[facility] LABCLIA [id number] [address] LABCLIA [id number] [place] [address] Ovalocytes LM Ql (Bld) Few Normal [facility] Comment on above: Order Comment: Speci men Type: BLOOD SPECIMENOrdering Facility: [facility] Address: [address] [place], [place] [address] Performed By: #### 5 7021-8 ####[facility] LABCLIA [id number] [address] LABCLIA [id number] [place] [address] PLATELET ESTIMATE Adequate Normal [facility] Comment on above: Order Comment: Speci men Type: BLOOD SPECIMENOrdering Facility: [facility] Address: [address] [place], [place] [address] Performed By: #### 5 7021-8 ####[facility] LABCLIA [id number] [address] LABCLIA [id number] [place] [address] Platelet mean volume (Bld) [Entitic vol] Normal [facility] Comment on above: Order Comment: Speci men Type: BLOOD SPECIMENOrdering Facility: [facility] Address: [address] [place] [address] Result Comment: Unab le to Report. Performed By: #### 5 7021-8 ####[facility] LABCLIA [id number] [address] LABCLIA [id number] [place] [address] Platelets (Bld) [#/Vol] 170 10*3/uL Normal 150-400 [facility] Comment on above: Order Comment: Speci men Type: BLOOD SPECIMENOrdering Facility: [facility] Address: [address] [place] [address] Result Comment: Samp le checked for clot Performed By: #### 5 7021-8 ####[facility] LABCLIA [id number] [address] [facility] [address] LABCLIA [id number] [place] [address] Polychromasia LM Ql (Bld) Slight Normal [facility] Comment on above: Order Comment: Speci men Type: BLOOD SPECIMENOrdering Facility: [facility] Address: [address] [place] [address] Performed By: #### 5 7021-8 ####[facility] LABCLIA [id number] [address] LABCLIA [id number] [place] [address] RBC (Bld) [#/Vol] 2.67 10*6/uL Low 4.20-6.00 [facility] Comment on above: Order Comment: Speci men Type: BLOOD SPECIMENOrdering Facility: [facility] Address: [address] [place] [address] Performed By: #### 5 7021-8 ####[facility] LABCLIA [id number] [address] LABCLIA [id number] [place] [address] RBC FRAGMENTS Few Abnormal None Seen [facility] Comment on above: Order Comment: Speci men Type: BLOOD SPECIMENOrdering Facility: [facility] Address: [address] [place] [address] Performed By: #### 5 7021-8 ####[facility] LABCLIA [id number] [address] LABCLIA [id number] [place] [address] RED CELL MORPH Reviewed: see result s of individual morphologies Normal [facility] Comment on above: Order Comment: Speci men Type: BLOOD SPECIMENOrdering Facility: [facility] Address: [address] [place] [address] Performed By: #### 5 7021-8 ####[facility] LABCLIA [id number] [address] LABCLIA [id number] [place] [address] WAM - ABS BASO 0.00 k/uL Normal <0.11 [facility] Comment on above: Order Comment: Speci men Type: BLOOD SPECIMENOrdering Facility: [facility] Address: [address] [place], [place] [address] Performed By: #### 5 7021-8 ####[facility] LABCLIA [id number] [address] LABCLIA [id number] [place] [address] WAM - ABS MONO 0.30 k/uL Normal <0.87 [facility] Comment on above: Order Comment: Speci men Type: BLOOD SPECIMENOrdering Facility: [facility] Address: [address] [place] [address] Performed By: #### 5 7021-8 ####[facility] LABCLIA [id number] [address] LABCLIA [id number] [place] [address] WAM - MONO% 9.0 % Normal [facility] Comment on above: Order Comment: Speci men Type: BLOOD SPECIMENOrdering Facility: [facility] Address: [address] [place], [place] [address] Performed By: #### 5 7021-8 ####[facility] LABCLIA [id number] [place] [address] [facility] LABCLIA [id number] [place] [address] WAM ABSOLUTE NRBC <0.01 Normal <0.01 [facility] Comment on above: Order Comment: Speci men Type: BLOOD SPECIMENOrdering Facility: [facility] Address: [address] [place] [address] Performed By: #### 5 7021-8 ####[facility] LABCLIA [id number] [address] LABCLIA [id number] [place] [address] WBC (Bld) [#/Vol] 3.30 10*3/uL Low 3.70-11.00 [facility] Comment on above: Order Comment: Speci men Type: BLOOD SPECIMENOrdering Facility: [facility] Address: [address] [place] [address] Result Comment: Resu lts checked and verified. No clot detected Performed By: #### 5 7021-8 ####[facility] LABCLIA [id number] [address] LABCLIA [id number] [place] [address] WBC Left Shift Ql (Bld) Present Normal [facility] Comment on above: Order Comment: Speci men Type: BLOOD SPECIMENOrdering Facility: [facility] Address: [address] [place] [address] Performed By: #### 5 7021-8 ####[facility] LABCLIA [id number] [address] LABCLIA [id number] [place] [address] Comprehensive metabolic 2000 panelon 01-21-2022 Albumin [Mass/Vol] 3.9 g/dL Normal 3.9-4.9 [facility] Comment on above: Order Comment: Speci men Type: BLOOD SPECIMENOrdering Facility: [facility] Address: [address] [place] [address] Performed By: #### 2 4323-8 ####[facility] LABCLIA [id number] [place] [address] ALP [Catalytic activity/Vol] 62 U/L Normal 38-113 [facility] Comment on above: Order Comment: Speci men Type: BLOOD SPECIMENOrdering Facility: [facility] Address: [address] [place] [address] Performed By: #### 2 4323-8 ####[facility] LABCLIA [id number] [place] [address] ALT [Catalytic activity/Vol] 40 U/L Normal 10-54 [facility] Comment on above: Order Comment: Speci men Type: BLOOD SPECIMENOrdering Facility: [facility] Address: [address] [place] [address] Performed By: #### 2 4323-8 ####[facility] LABCLIA [id number] [place] [address] Anion gap [Moles/Vol] 10 mmol/L Normal 9-18 [facility] Comment on above: Order Comment: Speci men Type: BLOOD SPECIMENOrdering Facility: [facility] Address: [address] [place] [address] Performed By: #### 2 4323-8 ####[facility] LABCLIA [id number] [place] [address] AST [Catalytic activity/Vol] 19 U/L Normal 14-40 [facility] Comment on above: Order Comment: Speci men Type: BLOOD SPECIMENOrdering Facility: [facility] Address: [address] [place] [address] Performed By: #### 2 4323-8 ####[facility] LABCLIA [id number] [place] [address] Bilirubin [Mass/Vol] 0.8 mg/dL Normal 0.2-1.3 [facility] Comment on above: Order Comment: Speci men Type: BLOOD SPECIMENOrdering Facility: [facility] Address: [address] [place] [address] Performed By: #### 2 4323-8 ####[facility] LABCLIA [id number] [place] [address] Calcium [Mass/Vol] 8.8 mg/dL Normal 8.5-10.2 [facility] Comment on above: Order Comment: Speci men Type: BLOOD SPECIMENOrdering Facility: [facility] Address: [address] [place] [address] Performed By: #### 2 4323-8 ####[facility] LABCLIA [id number] [place] [address] Chloride [Moles/Vol] 101 mmol/L Normal 97-105 [facility] Comment on above: Order Comment: Speci men Type: BLOOD SPECIMENOrdering Facility: [facility] Address: [address] [place] [address] Performed By: #### 2 4323-8 ####[facility] LABCLIA [id number] [place] [address] CO2 [Moles/Vol] 31 mmol/L High 22-30 [facility] Comment on above: Order Comment: Speci men Type: BLOOD SPECIMENOrdering Facility: [facility] Address: [address] [place], [place] [address] Performed By: #### 2 4323-8 ####[facility] LABCLIA [id number] [place] [address] Creatinine [Mass/Vol] 1.95 mg/dL High 0.73-1.22 [facility] Comment on above: Order Comment: Speci men Type: BLOOD SPECIMENOrdering Facility: [facility] Address: [address] [place] [address] Performed By: #### 2 4323-8 ####[facility] LABCLIA [id number] [place] [address] ESTIMATED GLOMERULAR FILTRATION RATE 34 mL/min/1.73m??? Low >=60 [facility] Comment on above: Order Comment: Davi avendaño Type: BLOOD SPECIMENOrdering Facility: [facility] Address: [address] [place] [address] Result Comment: Faye mated Glomerular Filtration Rate [...] actual GFR. Performed By: #### 2 4323-8 ####[facility] LABCLIA [id number] [place] [address] Glucose [Mass/Vol] 231 mg/dL High 74-99 [facility] Comment on above: Order Comment: Davi avendaño Type: BLOOD SPECIMENOrdering Facility: [facility] Address: [address] [place] [address] Result Comment: The [place] [employer] (ADA) provides guidance for cutoff [...] Standards of Medical Care in Diabetes 2016, [place] [employer]. Diabetes Care. 2016.39(Suppl 1). Performed By: #### 2 4323-8 ####[facility] LABCLIA [id number] [place] [address] Potassium [Moles/Vol] 3.6 mmol/L Low 3.7-5.1 [facility] Comment on above: Order Comment: Speci men Type: BLOOD SPECIMENOrdering Facility: [facility] Address: [address] [place] [address] Performed By: #### 2 4323-8 ####[facility] LABCLIA [id number] [place] [address] Protein [Mass/Vol] 6.1 g/dL Low 6.3-8.0 [facility] Comment on above: Order Comment: Speci men Type: BLOOD SPECIMENOrdering Facility: [facility] Address: [address] [place] [address] Performed By: #### 2 4323-8 ####[facility] LABCLIA [id number] [place] [address] Sodium [Moles/Vol] 142 mmol/L Normal 136-144 [facility] Comment on above: Order Comment: Speci men Type: BLOOD SPECIMENOrdering Facility: [facility] Address: [address] [place] [address] Performed By: #### 2 4323-8 ####[facility] LABCLIA [id number] [place] [address] Urea nitrogen [Mass/Vol] 39 mg/dL High 9-24 [facility] Comment on above: Order Comment: Speci men Type: BLOOD SPECIMENOrdering Facility: [facility] Address: [address] [place] [address] Performed By: #### 2 4323-8 ####[facility] LABCLIA [id number] [place] [address] Albumin [Mass/Vol] 3.9 g/dL 3.9 - 4.9 g/dL [facility] ALP [Catalytic activity/Vol] 62 U/L 38 - 113 U/L [facility] ALT [Catalytic activity/Vol] 40 U/L 10 - 54 U/L [facility] Anion gap [Moles/Vol] 10 mmol/L 9 - 18 mmol/L [facility] AST [Catalytic activity/Vol] 19 U/L 14 - 40 U/L [facility] Bilirubin [Mass/Vol] 0.8 mg/dL 0.2 - 1.3 mg/dL [facility] Calcium [Mass/Vol] 8.8 mg/dL 8.5 - 10.2 mg/dL [facility] Chloride [Moles/Vol] 101 mmol/L 97 - 105 mmol/L [facility] CO2 [Moles/Vol] 31 mmol/L High 22 - 30 mmol/L [facility] Creatinine [Mass/Vol] 1.95 mg/dL High 0.73 - 1.22 mg/dL [facility] Estimated Glomerular Filtration Rate 34 mL/min/1.73m Low >=60 mL/min/1.73m [facility] Glucose [Mass/Vol] 231 mg/dL High 74 - 99 mg/dL [facility] Potassium [Moles/Vol] 3.6 mmol/L Low 3.7 - 5.1 mmol/L [facility] Protein [Mass/Vol] 6.1 g/dL Low 6.3 - 8.0 g/dL [facility] Sodium [Moles/Vol] 142 mmol/L 136 - 144 mmol/L [facility] Urea nitrogen [Mass/Vol] 39 mg/dL High 9 - 24 mg/dL [facility] Comprehensive metabolic 2000 panelon 01-18-2022 Albumin [Mass/Vol] 4.1 g/dL Normal 3.9-4.9 [facility] Comment on above: Order Comment: Speci men Type: BLOOD SPECIMENOrdering Facility: [facility] Address: [address] [place] [address] Performed By: #### 2 4323-8 ####[facility] LABCLIA [id number] [place] [address] ALP [Catalytic activity/Vol] 62 U/L Normal 38-113 [facility] Comment on above: Order Comment: Speci men Type: BLOOD SPECIMENOrdering Facility: [facility] Address: [address] [place] [address] Performed By: #### 2 4323-8 ####[facility] LABCLIA [id number] [place] [address] ALT [Catalytic activity/Vol] 24 U/L Normal 10-54 [facility] Comment on above: Order Comment: Speci men Type: BLOOD SPECIMENOrdering Facility: [facility] Address: [facility]0 [address] Performed By: #### 2 4323-8 ####[facility] LABCLIA [id number] [place] [address] Anion gap [Moles/Vol] 10 mmol/L Normal 9-18 [facility] Comment on above: Order Comment: Speci men Type: BLOOD SPECIMENOrdering Facility: [facility] Address: [address] [place] [address] Performed By: #### 2 4323-8 ####[facility] LABCLIA [id number] [place] [address] AST [Catalytic activity/Vol] 12 U/L Low 14-40 [facility] Comment on above: Order Comment: Speci men Type: BLOOD SPECIMENOrdering Facility: [facility] Address: [address] [place] [address] Performed By: #### 2 4323-8 ####[facility] LABCLIA [id number] [place] [address] Bilirubin [Mass/Vol] 0.6 mg/dL Normal 0.2-1.3 [facility] Comment on above: Order Comment: Speci men Type: BLOOD SPECIMENOrdering Facility: [facility] Address: [address] [place], [place] [address] Performed By: #### 2 4323-8 ####[facility] LABCLIA [id number] [place] [address] Calcium [Mass/Vol] 9.4 mg/dL Normal 8.5-10.2 [facility] Comment on above: Order Comment: Speci men Type: BLOOD SPECIMENOrdering Facility: [facility] Address: [address] [place], [place] [address] Performed By: #### 2 4323-8 ####[facility] LABCLIA [id number] [place] [address] Chloride [Moles/Vol] 103 mmol/L Normal 97-105 [facility] Comment on above: Order Comment: Speci men Type: BLOOD SPECIMENOrdering Facility: [facility] Address: [address] [place] [address] Performed By: #### 2 4323-8 ####[facility] LABCLIA [id number] [place] [address] CO2 [Moles/Vol] 30 mmol/L Normal 22-30 [facility] Comment on above: Order Comment: Speci men Type: BLOOD SPECIMENOrdering Facility: [facility] Address: [address] [place] [address] Performed By: #### 2 4323-8 ####[facility] LABCLIA [id number] [place] [address] Creatinine [Mass/Vol] 2.14 mg/dL High 0.73-1.22 [facility] Comment on above: Order Comment: Speci men Type: BLOOD SPECIMENOrdering Facility: [facility] Address: [address] [place] [address] Performed By: #### 2 4323-8 ####[facility] LABCLIA [id number] [place] [address] ESTIMATED GLOMERULAR FILTRATION RATE 30 mL/min/1.73m??? Low >=60 [facility] Comment on above: Order Comment: Speci men Type: BLOOD SPECIMENOrdering Facility: [facility] Address: [address] [place] [address] Result Comment: Faye mated Glomerular Filtration Rate [...] actual GFR. Performed By: #### 2 4323-8 ####[facility] LABIA [id number] [place] [address] Glucose [Mass/Vol] 182 mg/dL High 74-99 [facility] Comment on above: Order Comment: Speci men Type: BLOOD SPECIMENOrdering Facility: [facility] Address: [address] [place] [address] Result Comment: The [place] [employer] (ADA) provides guidance for cutoff [...] Standards of Medical Care in Diabetes 2016, [place] [employer]. Diabetes Care. 2016.39(Suppl 1). Performed By: #### 2 4323-8 ####[facility] LABIA [id number] [place] [address] Potassium [Moles/Vol] 3.8 mmol/L Normal 3.7-5.1 [facility] Comment on above: Order Comment: Speci men Type: BLOOD SPECIMENOrdering Facility: [facility] Address: [address] [place] [address] Performed By: #### 2 4323-8 ####[facility] LABIA [id number] [place] [address] Protein [Mass/Vol] 6.4 g/dL Normal 6.3-8.0 [facility] Comment on above: Order Comment: Speci men Type: BLOOD SPECIMENOrdering Facility: [facility] Address: [address] [place] [address] Performed By: #### 2 4323-8 ####[facility] LABCLIA [id number] [place] [address] Sodium [Moles/Vol] 143 mmol/L Normal 136-144 [facility] Comment on above: Order Comment: Speci men Type: BLOOD SPECIMENOrdering Facility: [facility] Address: [address] [place] [address] Performed By: #### 2 4323-8 ####[facility] LABCLIA [id number] [place] [address] Urea nitrogen [Mass/Vol] 45 mg/dL High 9-24 [facility] Comment on above: Order Comment: Speci men Type: BLOOD SPECIMENOrdering Facility: [facility] Address: [address] [place] [address] Performed By: #### 2 4323-8 ####[facility] LABCLIA [id number] [place] [address] Albumin [Mass/Vol] 4.1 g/dL 3.9 - 4.9 g/dL [facility] ALP [Catalytic activity/Vol] 62 U/L 38 - 113 U/L [facility] ALT [Catalytic activity/Vol] 24 U/L 10 - 54 U/L [facility] Anion gap [Moles/Vol] 10 mmol/L 9 - 18 mmol/L [facility] AST [Catalytic activity/Vol] 12 U/L Low 14 - 40 U/L [facility] Bilirubin [Mass/Vol] 0.6 mg/dL 0.2 - 1.3 mg/dL [facility] Calcium [Mass/Vol] 9.4 mg/dL 8.5 - 10.2 mg/dL [facility] Chloride [Moles/Vol] 103 mmol/L 97 - 105 mmol/L [facility] CO2 [Moles/Vol] 30 mmol/L 22 - 30 mmol/L [facility] Creatinine [Mass/Vol] 2.14 mg/dL High 0.73 - 1.22 mg/dL [facility] Estimated Glomerular Filtration Rate 30 mL/min/1.73m Low >=60 mL/min/1.73m [facility] Glucose [Mass/Vol] 182 mg/dL High 74 - 99 mg/dL [facility] Potassium [Moles/Vol] 3.8 mmol/L 3.7 - 5.1 mmol/L [facility] Protein [Mass/Vol] 6.4 g/dL 6.3 - 8.0 g/dL [facility] Sodium [Moles/Vol] 143 mmol/L 136 - 144 mmol/L [facility] Urea nitrogen [Mass/Vol] 45 mg/dL High 9 - 24 mg/dL [facility] HEMOGLOBIN AND HEMATOCRITon 01-15-2022 Hematocrit (Bld) [Volume fraction] 24.9 % Critically low 42.0-54.0 [facility] Comment on above: Performed By: #### T ZEHRA, PRBC #### [facility] [address] [place] [address] Dr. Benito To Hemoglobin (Bld) [Mass/Vol] 7.7 g/dL Critically low 14.0-18.0 [facility] Comment on above: Performed By: #### T ZEHRA, PRBC #### [facility] [address] [place] [address] Dr. Benito To TYPE AND SCREENon 01-15-2022 TYPE AND SCREEN Negative Normal [facility] Comment on above: Performed By: #### T NS, PRBC #### [facility] [address] [place] [address] Dr. Benito To CBC W Auto Differential pane l (Bld)on 01-14-2022 Anisocytosis Ql (Bld) Present Normal [facility] Comment on above: Order Comment: Speci men Type: BLOOD SPECIMENOrdering Facility: [facility] Address: [address] [place], [place] [address] Performed By: #### 5 7021-8 ####[facility] LABCLIA [id number] [place], [place] [address] LABCLIA [id number] [place] [address] [place] Basophils/100 WBC (Bld) 4.0 % Normal [facility] Comment on above: Order Comment: Speci men Type: BLOOD SPECIMENOrdering Facility: [facility] Address: [address] [place] [address] Performed By: #### 5 7021-8 ####[facility] LABCLIA [id number] [address] LABCLIA [id number] [place] [address] [place] Differential cell count method Nom (Bld) Manual Normal [facility] Comment on above: Order Comment: Speci men Type: BLOOD SPECIMENOrdering Facility: [facility] Address: [address] [place] [address] Performed By: #### 5 7021-8 ####[facility] LABCLIA [id number] [address] LABCLIA [id number] [place] [address] [place] Eosinophils (Bld) [#/Vol] 0.00 10*3/uL Normal <0.46 [facility] Comment on above: Order Comment: Speci men Type: BLOOD SPECIMENOrdering Facility: [facility] Address: [address] [place] [address] Performed By: #### 5 7021-8 ####[facility] LABCLIA [id number] [address] LABCLIA [id number] [place] [address] [place] Eosinophils/100 WBC (Bld) 0.0 % Normal [facility] Comment on above: Order Comment: Speci men Type: BLOOD SPECIMENOrdering Facility: [facility] Address: [address] [place] [address] Performed By: #### 5 7021-8 ####[facility] LABCLIA [id number] [address] LABCLIA [id number] [place] [address] [place] Erythrocyte distribution width (RBC) [Ratio] 23.8 % High 11.5-15.0 [facility] Comment on above: Order Comment: Speci men Type: BLOOD SPECIMENOrdering Facility: [facility] Address: [address] [place] [address] Performed By: #### 5 7021-8 ####[facility] LABCLIA [id number] [address] LABCLIA [id number] [place] [address] [place] Giant platelets LM Ql (Bld) Occasional Normal [facility] Comment on above: Order Comment: Speci men Type: BLOOD SPECIMENOrdering Facility: [facility] Address: [address] [place], [place] [address] Performed By: #### 5 7021-8 ####[facility] LABCLIA [id number] [address] LABCLIA [id number] [place] [address] [place] Hematocrit (Bld) [Volume fraction] 23.4 % Low 39.0-51.0 [facility] Comment on above: Order Comment: Speci men Type: BLOOD SPECIMENOrdering Facility: [facility] Address: [address] [place] [address] Performed By: #### 5 7021-8 ####[facility] LABCLIA [id number] [address] LABCLIA [id number] [place] [address] [place] Hemoglobin (Bld) [Mass/Vol] 7.3 g/dL Low 13.0-17.0 [facility] Comment on above: Order Comment: Speci men Type: BLOOD SPECIMENOrdering Facility: [facility] Address: [address] [place] [address] Performed By: #### 5 7021-8 ####[facility] LABCLIA [id number] [address] LABCLIA [id number] [place] [address] [place] Lymphocytes (Bld) [#/Vol] 0.87 10*3/uL Low 1.00-4.00 [facility] Comment on above: Order Comment: Speci men Type: BLOOD SPECIMENOrdering Facility: [facility] Address: [address] [place], [place] [address] Performed By: #### 5 7021-8 ####[facility] LABCLIA [id number] [address] LABCLIA [id number] [place] [address] [place] Lymphocytes/100 WBC (Bld) 45.0 % Normal [facility] Comment on above: Order Comment: Speci men Type: BLOOD SPECIMENOrdering Facility: [facility] Address: [address] [place], [place] [address] Performed By: #### 5 7021-8 ####[facility] LABCLIA [id number] [address] LABCLIA [id number] [place] [address] [place] MCH (RBC) [Entitic mass] 34.9 pg High 26.0-34.0 [facility] Comment on above: Order Comment: Speci men Type: BLOOD SPECIMENOrdering Facility: [facility] Address: [address] [place] [address] Performed By: #### 5 7021-8 ####[facility] LABCLIA [id number] [address] LABCLIA [id number] [place] [address] [place] MCHC (RBC) [Mass/Vol] 31.2 g/dL Normal 30.5-36.0 [facility] Comment on above: Order Comment: Speci men Type: BLOOD SPECIMENOrdering Facility: [facility] Address: [address] [place] [address] Performed By: #### 5 7021-8 ####[facility] LABCLIA [id number] [address] LABCLIA [id number] [place] [address] [place] MCV (RBC) [Entitic vol] 112.0 fL High 80.0-100.0 [facility] Comment on above: Order Comment: Speci men Type: BLOOD SPECIMENOrdering Facility: [facility] Address: [address] [place], [place] [address] Performed By: #### 5 7021-8 ####[facility] LABCLIA [id number] [address] LABCLIA [id number] [place] [address] [place] Neutrophils (Bld) [#/Vol] 0.70 10*3/uL Low 1.45-7.50 [facility] Comment on above: Order Comment: Speci men Type: BLOOD SPECIMENOrdering Facility: [facility] Address: [address] [place], [place] [address] Performed By: #### 5 7021-8 ####[facility] LABCLIA [id number] [address] LABCLIA [id number] [place] [address] [place] Neutrophils/100 WBC (Bld) 36.0 % Normal [facility] Comment on above: Order Comment: Speci men Type: BLOOD SPECIMENOrdering Facility: [facility] Address: [address] [place] [address] Performed By: #### 5 7021-8 ####[facility] LABCLIA [id number] [place] [address] LABCLIA [id number] [place] [address] [place] Nucleated RBC/100 WBC (Bld) [Ratio] 0.0 /100 WBC Normal [facility] Comment on above: Order Comment: Speci men Type: BLOOD SPECIMENOrdering Facility: [facility] Address: [address] [place] [address] Performed By: #### 5 7021-8 ####[facility] LABCLIA [id number] [address] LABCLIA [id number] [place] [address] [place] Ovalocytes LM Ql (Bld) Few Normal [facility] Comment on above: Order Comment: Speci men Type: BLOOD SPECIMENOrdering Facility: [facility] Address: [address] [place] [address] Performed By: #### 5 7021-8 ####[facility] LABCLIA [id number] [address] LABCLIA [id number] [place] [address] [place] PLATELET ESTIMATE Adequate Normal [facility] Comment on above: Order Comment: Speci men Type: BLOOD SPECIMENOrdering Facility: [facility] Address: [address] [place], [place] [address] Performed By: #### 5 7021-8 ####[facility] LABCLIA [id number] [address] LABCLIA [id number] [place] [address] [place] Platelet mean volume (Bld) [Entitic vol] 12.8 fL High 9.0-12.7 [facility] Comment on above: Order Comment: Speci men Type: BLOOD SPECIMENOrdering Facility: [facility] Address: [address] [place] [address] Performed By: #### 5 7021-8 ####[facility] LABCLIA [id number] [address] LABCLIA [id number] [place] [address] [place] Platelets (Bld) [#/Vol] 155 10*3/uL Normal 150-400 [facility] Comment on above: Order Comment: Speci men Type: BLOOD SPECIMENOrdering Facility: [facility] Address: [address] [place] [address] Result Comment: Resu lts checked and verified. No clot detected. Platelet count confirmed by manual review of peripheral blood smear Performed By: #### 5 7021-8 ####[facility] LABCLIA [id number] [address] LABCLIA [id number] [place] [address] [place] Polychromasia LM Ql (Bld) Slight Normal [facility] Comment on above: Order Comment: Speci men Type: BLOOD SPECIMENOrdering Facility: [facility] Address: [address] [place], [place] [address] Performed By: #### 5 7021-8 ####[facility] LABCLIA [id number] [address] LABCLIA [id number] [place] [address] [place] RBC (Bld) [#/Vol] 2.09 10*6/uL Low 4.20-6.00 [facility] Comment on above: Order Comment: Speci men Type: BLOOD SPECIMENOrdering Facility: [facility] Address: [address] [place] [address] Performed By: #### 5 7021-8 ####[facility] LABCLIA [id number] [address] LABCLIA [id number] [place] [address] [place] RBC FRAGMENTS Few Abnormal None Seen [facility] Comment on above: Order Comment: Speci men Type: BLOOD SPECIMENOrdering Facility: [facility] Address: [address] [place] [address] Performed By: #### 5 7021-8 ####[facility] LABCLIA [id number] [address] LABCLIA [id number] [place] [address] [place] RED CELL MORPH Reviewed: see result s of individual morphologies Normal [facility] Comment on above: Order Comment: Speci men Type: BLOOD SPECIMENOrdering Facility: [facility] Address: [address] [place] [address] Performed By: #### 5 7021-8 ####[facility] LABCLIA [id number] [address] LABCLIA [id number] [place] [address] [place] WAM - ABS BASO 0.08 k/uL Normal <0.11 [facility] Comment on above: Order Comment: Speci men Type: BLOOD SPECIMENOrdering Facility: [facility] Address: [address] [place] [address] Performed By: #### 5 7021-8 ####[facility] LABCLIA [id number] [address] LABCLIA [id number] [place] [id number] [address] [place] WAM - ABS MONO 0.29 k/uL Normal <0.87 [facility] Comment on above: Order Comment: Speci men Type: BLOOD SPECIMENOrdering Facility: [facility] Address: [address] [place] [address] Performed By: #### 5 7021-8 ####[facility] LABCLIA [id number] [address] LABCLIA [id number] [place] [address] [place] WAM - MONO% 15.0 % Normal [facility] Comment on above: Order Comment: Speci men Type: BLOOD SPECIMENOrdering Facility: [facility] Address: [address] [place] [address] Performed By: #### 5 7021-8 ####[facility] LABCLIA [id number] [address] LABCLIA [id number] [address] [place] WAM ABSOLUTE NRBC <0.01 Normal <0.01 [facility] Comment on above: Order Comment: Speci men Type: BLOOD SPECIMENOrdering Facility: [facility] Address: [address] [place] [address] Result Comment: This result was previously suppressed from the chart. Performed By: #### 5 7021-8 ####[facility] LABCLIA [id number] [address] LABCLIA [id number] [place] [address] [place] WBC (Bld) [#/Vol] 1.96 10*3/uL Low 3.70-11.00 [facility] Comment on above: Order Comment: Speci men Type: BLOOD SPECIMENOrdering Facility: [facility] Address: [address] [place] [address] Performed By: #### 5 7021-8 ####[facility] LABCLIA [id number] [place], [place] [address]GNECRVLGB[facility] LABCLIA [id number] [place] [address] [address] [place] CNOVSPon 01-14-2022 CNOVSP Normal [facility] CNPNon 01-14-2022 CNPN Normal [facility] Comprehensive metabolic 2000 panelon 01-14-2022 Albumin [Mass/Vol] 4.0 g/dL Normal 3.9-4.9 [facility] Comment on above: Order Comment: Speci men Type: BLOOD SPECIMENOrdering Facility: [facility] Address: [address] [place] [address] Performed By: #### 2 532-0, 21708-5 ####[facility] LABCLIA [id number] [place] [address] ALP [Catalytic activity/Vol] 70 U/L Normal 38-113 [facility] Comment on above: Order Comment: Speci men Type: BLOOD SPECIMENOrdering Facility: [facility] Address: [address] [place] [address] Performed By: #### 2 532-0, 14167-7 ####[facility] LABCLIA [id number] [place] [address] ALT [Catalytic activity/Vol] 14 U/L Normal 10-54 [facility] Comment on above: Order Comment: Speci men Type: BLOOD SPECIMENOrdering Facility: [facility] Address: [address] [place], [place] [address] Performed By: #### 2 532-0, 97054-1 ####[facility] LABCLIA [id number] [place] [address] Anion gap [Moles/Vol] 11 mmol/L Normal 9-18 [facility] Comment on above: Order Comment: Speci men Type: BLOOD SPECIMENOrdering Facility: [facility] Address: [address] [place], [place] [address] Performed By: #### 2 532-0, ####[facility] LABCLIA [id number] [place] [address] AST [Catalytic activity/Vol] 10 U/L Low 14-40 [facility] Comment on above: Order Comment: Speci men Type: BLOOD SPECIMENOrdering Facility: [facility] Address: [address] [place] [address] Performed By: #### 2 532-0, ####[facility] LABCLIA [id number] [place] [address] Bilirubin [Mass/Vol] 0.5 mg/dL Normal 0.2-1.3 [facility] Comment on above: Order Comment: Speci men Type: BLOOD SPECIMENOrdering Facility: [facility] Address: [address] [place] [address] Performed By: #### 2 532-0, ####[facility] LABCLIA [id number] [place] [address] Calcium [Mass/Vol] 9.0 mg/dL Normal 8.5-10.2 [facility] Comment on above: Order Comment: Speci men Type: BLOOD SPECIMENOrdering Facility: [facility] Address: [address] [place] [address] Performed By: #### 2 532-0, ####[facility] LABCLIA [id number] [place] [address] Chloride [Moles/Vol] 104 mmol/L Normal 97-105 [facility] Comment on above: Order Comment: Speci men Type: BLOOD SPECIMENOrdering Facility: [facility] Address: [address] [place] [address] Performed By: #### 2 532-0, ####[facility] LABCLIA [id number] [place] [address] CO2 [Moles/Vol] 27 mmol/L Normal 22-30 [facility] Comment on above: Order Comment: Speci men Type: BLOOD SPECIMENOrdering Facility: [facility] Address: [address] [place] [address] Performed By: #### 2 532-0, 56091-4 ####[facility] LABCLIA [id number] [place] [address] Creatinine [Mass/Vol] 2.13 mg/dL High 0.73-1.22 [facility] Comment on above: Order Comment: Speci men Type: BLOOD SPECIMENOrdering Facility: [facility] Address: [address] [place] [address] Performed By: #### 2 532-0, 70494-7 ####[facility] LABIA [id number] [place] [address] ESTIMATED GLOMERULAR FILTRATION RATE 30 mL/min/1.73m??? Low >=60 [facility] Comment on above: Order Comment: Speci men Type: BLOOD SPECIMENOrdering Facility: [facility] Address: [address] [place] [address] Result Comment: Faye mated Glomerular Filtration Rate [...] actual GFR. Performed By: #### 2 532-0, 07381-8 ####[facility] LABCLIA [id number] [place] [address] Glucose [Mass/Vol] 216 mg/dL High 74-99 [facility] Comment on above: Order Comment: Speci men Type: BLOOD SPECIMENOrdering Facility: [facility] Address: [address] [place] [address] Result Comment: The [place] [employer] (ADA) provides guidance for cutoff [...] Standards of Medical Care in Diabetes 2016, [place] [employer]. Diabetes Care. 2016.39(Suppl 1). Performed By: #### 2 532-0, 14348-2 ####[facility] LABIA [id number] [place] [address] Potassium [Moles/Vol] 4.4 mmol/L Normal 3.7-5.1 [facility] Comment on above: Order Comment: Speci men Type: BLOOD SPECIMENOrdering Facility: [facility] Address: [address] [place] [address] Performed By: #### 2 532-0, 39627-8 ####[facility] LABIA [id number] [place] [address] Protein [Mass/Vol] 6.1 g/dL Low 6.3-8.0 [facility] Comment on above: Order Comment: Speci men Type: BLOOD SPECIMENOrdering Facility: [facility] Address: [address] [place] [address] Performed By: #### 2 532-0, 45395-4 ####[facility] LABIA [id number] [place] [address] Sodium [Moles/Vol] 142 mmol/L Normal 136-144 [facility] Comment on above: Order Comment: Speci men Type: BLOOD SPECIMENOrdering Facility: [facility] Address: [address] [place] [address] Performed By: #### 2 532-0, 77505-0 ####[facility] LABCLIA [id number] [place] [address] Urea nitrogen [Mass/Vol] 26 mg/dL High 9-24 [facility] Comment on above: Order Comment: Speci men Type: BLOOD SPECIMENOrdering Facility: [facility] Address: [address] [place] [address] Performed By: #### 2 532-0, 04871-5 ####[facility] LABCLIA [id number] [place] [address] LDH SerPl-cCncon 01-14-2022 LDH [Catalytic activity/Vol] 214 U/L Normal 135-225 [facility] Comment on above: Order Comment: Speci men Type: BLOOD SPECIMENOrdering Facility: [facility] Address: [address] [place] [address] Performed By: #### 2 532-0, 72507-3 ####[facility] LABCLIA [id number] [place] [address] CBC W Auto Differential pane l (Bld)on 01-07-2022 Basophils (Bld) [#/Vol] 10*3/uL Normal <0.11 [facility] Comment on above: Order Comment: Speci men Type: BLOOD SPECIMENOrdering Facility: [facility] Address: [address] [place] [address] Performed By: #### 5 7021-8 ####[facility] LABCLIA [id number] [place] [address] Basophils/100 WBC (Bld) 0.9 % Normal [facility] Comment on above: Order Comment: Speci men Type: BLOOD SPECIMENOrdering Facility: [facility] Address: [address] [place] [address] Performed By: #### 5 7021-8 ####[facility] LABCLIA [id number] [place] [address] Differential cell count method Nom (Bld) Auto Normal [facility] Comment on above: Order Comment: Speci men Type: BLOOD SPECIMENOrdering Facility: [facility] Address: [address] [place] [address] Performed By: #### 5 7021-8 ####[facility] LABCLIA [id number] [place] [address] Eosinophils (Bld) [#/Vol] 10*3/uL Normal <0.46 [facility] Comment on above: Order Comment: Speci men Type: BLOOD SPECIMENOrdering Facility: [facility] Address: [address] [place] [address] Performed By: #### 5 7021-8 ####[facility] LABCLIA [id number] [place] [address] Eosinophils/100 WBC (Bld) 0.0 % Normal [facility] Comment on above: Order Comment: Speci men Type: BLOOD SPECIMENOrdering Facility: [facility] Address: [address] [place] [address] Performed By: #### 5 7021-8 ####[facility] LABCLIA [id number] [place] [address] Erythrocyte distribution width (RBC) [Ratio] 21.7 % High 11.5-15.0 [facility] Comment on above: Order Comment: Speci men Type: BLOOD SPECIMENOrdering Facility: [facility] Address: [address] [place], [place] [address] Performed By: #### 5 7021-8 ####[facility] LABCLIA [id number] [place] [address] Hematocrit (Bld) [Volume fraction] 24.4 % Low 39.0-51.0 [facility] Comment on above: Order Comment: Speci men Type: BLOOD SPECIMENOrdering Facility: [facility] Address: [address] [place], [place] [address] Performed By: #### 5 7021-8 ####[facility] LABCLIA [id number] [place] [address] Hemoglobin (Bld) [Mass/Vol] 7.7 g/dL Low 13.0-17.0 [facility] Comment on above: Order Comment: Speci men Type: BLOOD SPECIMENOrdering Facility: [facility] Address: [address] [place] [address] Performed By: #### 5 7021-8 ####[facility] LABCLIA [id number] [place] [address] IMMATURE GRAN % 0.9 % Normal [facility] Comment on above: Order Comment: Speci men Type: BLOOD SPECIMENOrdering Facility: [facility] Address: [address] [place] [address] Performed By: #### 5 7021-8 ####[facility] LABCLIA [id number] [place] [address] IMMATURE GRAN ABS <0.03 Normal <0.10 [facility] Comment on above: Order Comment: Speci men Type: BLOOD SPECIMENOrdering Facility: [facility] Address: [address] [place] [address] Performed By: #### 5 7021-8 ####[facility] LABCLIA [id number] [place] [address] Lymphocytes (Bld) [#/Vol] 0.78 10*3/uL Low 1.00-4.00 [facility] Comment on above: Order Comment: Speci men Type: BLOOD SPECIMENOrdering Facility: [facility] Address: [address] [place] [address] Performed By: #### 5 7021-8 ####[facility] LABCLIA [id number] [place] [address] Lymphocytes/100 WBC (Bld) 36.6 % Normal [facility] Comment on above: Order Comment: Speci men Type: BLOOD SPECIMENOrdering Facility: [facility] Address: [address] [place] [address] Performed By: #### 5 7021-8 ####[facility] LABCLIA [id number] [place] [address] MCH (RBC) [Entitic mass] 34.5 pg High 26.0-34.0 [facility] Comment on above: Order Comment: Speci men Type: BLOOD SPECIMENOrdering Facility: [facility] Address: [address] [place] [address] Performed By: #### 5 7021-8 ####[facility] LABIA [id number] [place] [address] MCHC (RBC) [Mass/Vol] 31.6 g/dL Normal 30.5-36.0 [facility] Comment on above: Order Comment: Speci men Type: BLOOD SPECIMENOrdering Facility: [facility] Address: [address] [place] [address] Performed By: #### 5 7021-8 ####[facility] LABIA [id number] [place] [address] MCV (RBC) [Entitic vol] 109.4 fL High 80.0-100.0 [facility] Comment on above: Order Comment: Speci men Type: BLOOD SPECIMENOrdering Facility: [facility] Address: [address] [place] [address] Performed By: #### 5 7021-8 ####[facility] LABCLIA [id number] [place] [address] Monocytes (Bld) [#/Vol] 0.44 10*3/uL Normal <0.87 [facility] Comment on above: Order Comment: Speci men Type: BLOOD SPECIMENOrdering Facility: [facility] Address: [address] [place] [address] Performed By: #### 5 7021-8 ####[facility] LABCLIA [id number] [place] [address] Monocytes/100 WBC (Bld) 20.7 % Normal [facility] Comment on above: Order Comment: Speci men Type: BLOOD SPECIMENOrdering Facility: [facility] Address: [address] [place] [address] Performed By: #### 5 7021-8 ####[facility] LABCLIA [id number] [place] [address] Neutrophils (Bld) [#/Vol] 0.87 10*3/uL Low 1.45-7.50 [facility] Comment on above: Order Comment: Speci men Type: BLOOD SPECIMENOrdering Facility: [facility] Address: [address] [place] [address] Performed By: #### 5 7021-8 ####[facility] LABCLIA [id number] [place] [address] Neutrophils/100 WBC (Bld) 40.9 % Normal [facility] Comment on above: Order Comment: Speci men Type: BLOOD SPECIMENOrdering Facility: [facility] Address: [address] [place] [address] Performed By: #### 5 7021-8 ####[facility] LABCLIA [id number] [place] [address] Nucleated RBC (Bld) [#/Vol] 10*3/uL Normal <0.01 [facility] Comment on above: Order Comment: Speci men Type: BLOOD SPECIMENOrdering Facility: [facility] Address: [address] [place] [address] Performed By: #### 5 7021-8 ####[facility] LABIA [id number] [place] [address] Nucleated RBC/100 WBC (Bld) [Ratio] 0.0 /100 WBC Normal [facility] Comment on above: Order Comment: Speci men Type: BLOOD SPECIMENOrdering Facility: [facility] Address: [address] [place] [address] Performed By: #### 5 7021-8 ####[facility] LABCLIA [id number] [place] [address] Platelet mean volume (Bld) [Entitic vol] 12.3 fL Normal 9.0-12.7 [facility] Comment on above: Order Comment: Speci men Type: BLOOD SPECIMENOrdering Facility: [facility] Address: [address] [place] [address] Performed By: #### 5 7021-8 ####[facility] LABCLIA [id number] [place] [address] Platelets (Bld) [#/Vol] 80 10*3/uL Low 150-400 [facility] Comment on above: Order Comment: Speci men Type: BLOOD SPECIMENOrdering Facility: [facility] Address: [address] [place] [address] Result Comment: Samp le checked for clot Performed By: #### 5 7021-8 ####[facility] LABCLIA [id number] [place] [address] RBC (Bld) [#/Vol] 2.23 10*6/uL Low 4.20-6.00 [facility] Comment on above: Order Comment: Speci men Type: BLOOD SPECIMENOrdering Facility: [facility] Address: [address] [place] [address] Performed By: #### 5 7021-8 ####[facility] LABCLIA [id number] [place] [address] WBC (Bld) [#/Vol] 2.13 10*3/uL Low 3.70-11.00 [facility] Comment on above: Order Comment: Speci men Type: BLOOD SPECIMENOrdering Facility: [facility] Address: [address] [place] [address] Performed By: #### 5 7021-8 ####[facility] LABCLIA [id number] [place] [address] CNNURSEon 01-07-2022 CNNURSE Normal [facility] Comprehensive metabolic 2000 panelon 01-07-2022 Albumin [Mass/Vol] 3.8 g/dL Low 3.9-4.9 [facility] Comment on above: Order Comment: Speci men Type: BLOOD SPECIMENOrdering Facility: [facility] Address: [address] [place] [address] Performed By: #### 2 4323-8, 2531-0 ####[facility] LABCLIA [id number] [place] [address] ALP [Catalytic activity/Vol] 76 U/L Normal 38-113 [facility] Comment on above: Order Comment: Speci men Type: BLOOD SPECIMENOrdering Facility: [facility] Address: [address] [place] [address] Performed By: #### 2 432-8, 2531-0 ####[facility] LABCLIA [id number] [place] [address] ALT [Catalytic activity/Vol] 16 U/L Normal 10-54 [facility] Comment on above: Order Comment: Speci men Type: BLOOD SPECIMENOrdering Facility: [facility] Address: [address] [place] [address] Performed By: #### 2 4323-8, 2531-0 ####[facility] LABCLIA [id number] [place] [address] Anion gap [Moles/Vol] 7 mmol/L Low 9-18 [facility] Comment on above: Order Comment: Speci men Type: BLOOD SPECIMENOrdering Facility: [facility] Address: [address] [place] [address] Performed By: #### 2 4323-8, 253-0 ####[facility] LABCLIA [id number] [place] [address] AST [Catalytic activity/Vol] 10 U/L Low 14-40 [facility] Comment on above: Order Comment: Speci men Type: BLOOD SPECIMENOrdering Facility: [facility] Address: [address] [place] [address] Performed By: #### 2 4323-8, 2531-0 ####[facility] LABCLIA [id number] [place] [address] Bilirubin [Mass/Vol] 0.6 mg/dL Normal 0.2-1.3 [facility] Comment on above: Order Comment: Speci men Type: BLOOD SPECIMENOrdering Facility: [facility] Address: [address] [place] [address] Performed By: #### 2 4323-8, 2531-0 ####[facility] LABIA [id number] [place] [address] Calcium [Mass/Vol] 8.8 mg/dL Normal 8.5-10.2 [facility] Comment on above: Order Comment: Speci men Type: BLOOD SPECIMENOrdering Facility: [facility] Address: [address] [place] [address] Performed By: #### 2 4323-8, 2531-0 ####[facility] LABCLIA [id number] [place] [address] Chloride [Moles/Vol] 104 mmol/L Normal 97-105 [facility] Comment on above: Order Comment: Speci men Type: BLOOD SPECIMENOrdering Facility: [facility] Address: [address] [place], [place] [address] Performed By: #### 2 4323-8, 2531-0 ####[facility] LABIA [id number] [place] [address] CO2 [Moles/Vol] 28 mmol/L Normal 22-30 [facility] Comment on above: Order Comment: Speci men Type: BLOOD SPECIMENOrdering Facility: [facility] Address: [address] [place] [phone] Performed By: #### 2 4323-8, 2532-0 ####[facility] LABIA [id number] [place] [address] Creatinine [Mass/Vol] 1.68 mg/dL High 0.73-1.22 [facility] Comment on above: Order Comment: Speci men Type: BLOOD SPECIMENOrdering Facility: [facility] Address: [address] [place] [id number] Performed By: #### 2 4323-8, 2532-0 ####[facility] LABIA [id number] [place] [address] ESTIMATED GLOMERULAR FILTRATION RATE 40 mL/min/1.73m??? Low >=60 [facility] Comment on above: Order Comment: Speci men Type: BLOOD SPECIMENOrdering Facility: [facility] Address: [address] [place], [place] [address] Result Comment: Faye mated Glomerular Filtration Rate [...] GFR. Performed By: #### 2 4323-8, 2531-0 ####[facility] LABIA [id number] [place] [address] Glucose [Mass/Vol] 180 mg/dL High 74-99 [facility] Comment on above: Order Comment: Speci men Type: BLOOD SPECIMENOrdering Facility: [facility] Address: [address] Result Comment: The [place] [employer] (ADA) provides guidance for cutoff [...] Standards of Medical Care in Diabetes 2016, [place] [employer]. Diabetes Care. 2016.39(Suppl 1). Performed By: #### 2 [address]38, 2531-0 ####[facility] LABCLIA [id number] [place] [address] Potassium [Moles/Vol] 4.4 mmol/L Normal 3.7-5.1 [facility] Comment on above: Order Comment: Speci men Type: BLOOD SPECIMENOrdering Facility: [facility] Address: [address] [place] [address] Performed By: #### 2 4328, 0 ####[facility] LABCLIA [id number] [place] [address] Protein [Mass/Vol] 6.0 g/dL Low 6.3-8.0 [facility] Comment on above: Order Comment: Speci men Type: BLOOD SPECIMENOrdering Facility: [facility] Address: [address] [place] [address] Performed By: #### 2 4328, 0 ####[facility] LABCLIA [id number] [place] [address] Sodium [Moles/Vol] 139 mmol/L Normal 136-144 [facility] Comment on above: Order Comment: Speci men Type: BLOOD SPECIMENOrdering Facility: [facility] Address: [address] [place], [place] [address] Performed By: #### 2 4328, 0 ####[facility] LABCLIA [id number] [place] [address] Urea nitrogen [Mass/Vol] 11 mg/dL Normal 9-24 [facility] Comment on above: Order Comment: Speci men Type: BLOOD SPECIMENOrdering Facility: [facility] Address: [address] [place] [address] Performed By: #### 2 4323-8, 0 ####[facility] LABCLIA [id number] [place] [address] LDH SerPl-cCncon 01-07-2022 LDH [Catalytic activity/Vol] 211 U/L Normal 135-225 [facility] Comment on above: Order Comment: Speci men Type: BLOOD SPECIMENOrdering Facility: [facility] Address: [address] [place] [address] Performed By: #### 2 4323-8, ####[facility] LABCLIA [id number] [place] [address] Cardiovascular Lab Reporton 11-29-2021 Cardiovascular Lab Report [facility] Patient Name: [facility] Sandip Swain MR #: [id number] Department of Physician: Valentín Lee MD Division of Service Date: 11/21/2021 Cardiology Birthdate: 1940 Adult Cardiovascular Room #: 4AB [address] [place] [address] Cardiovascular Laboratory Report PROCEDURES PERFORMED: Right heart [...] P/Valentín Lee MD Date Trans: 11/29/2021 08:03 P/mmo [id number] cc: Flash Pearl M.D. [address] [place] [phone] Normal [facility] POC GLUCOSE LABon 11-25-2021 Glucose [Mass/Vol] 210 mg/dL High 70-[address] [facility] Comment on above: Performed By: #### 8 5499 #### [facility] [address] [place] [address], [facility] Glucose [Mass/Vol] 203 mg/dL High 70-100 [facility] Comment on above: Performed By: #### 8 5499 #### [facility] [address] [place] [address], [facility] Glucose [Mass/Vol] 202 mg/dL High 70-100 [facility] Comment on above: Performed By: #### 8 5499 #### [facility] [address] [place] [address], [facility] BNP (B-TYPE NATRIURETIC PEPT IZAIAH)on 11-24-2021 Natriuretic peptide B (Bld) [Mass/Vol] 685 pg/mL High 0-[address] [facility] Comment on above: Order Comment: No: D o not add to previous draw Result Comment: Give n the appropriate clinical setting a BNP result of >100 pg/mL indicates congestive heart failure. Performed By: #### 8 5123 ####[facility] [place] [address], [facility] CBC W/DIFFon 11-24-2021 ABS NEUTROPHILS 2.5 10*3/uL Normal 1.6-7.6 [facility] Comment on above: Order Comment: RIGHT BICEP Performed By: #### 3 0313 #### [facility] [address] [place] [address], [facility] ANISO Moderate Normal [facility] Comment on above: Order Comment: RIGHT BICEP Performed By: #### 3 0313 #### [facility] [address] [place] [id number], [facility] Basophils (Bld) [#/Vol] 0.0 10*3/uL Normal 0.0-0.2 [facility] Comment on above: Order Comment: RIGHT BICEP Performed By: #### 3 0313 #### [facility] [address] [place] [address], [facility] Basophils/100 WBC (Bld) 0.9 % Normal 0.0-1.0 [facility] Comment on above: Order Comment: RIGHT BICEP Performed By: #### 3 0313 #### [facility] [address] [place] [address], [facility] Eosinophils (Bld) [#/Vol] 0.0 10*3/uL Normal 0.0-0.5 [facility] Comment on above: Order Comment: RIGHT BICEP Performed By: #### 3 0313 #### [facility] [address] [place] [address], [facility] Eosinophils/100 WBC (Bld) 0.0 % Normal 0.0-6.0 [facility] Comment on above: Order Comment: RIGHT BICEP Performed By: #### 3 0313 #### [facility] [address] [place] [address], [facility] Erythrocyte distribution width (RBC) [Ratio] 22.0 % High 11.5-15.0 [facility] Comment on above: Order Comment: RIGHT BICEP Performed By: #### 3 0313 #### [facility] [address] [place] [address], [facility] GIANT PLATELETS Present Normal [facility] Comment on above: Order Comment: RIGHT BICEP Performed By: #### 3 0313 #### [facility] [address] [place] [address], [facility] Hematocrit (Bld) [Volume fraction] 27.9 % Low 39.0-50.0 [facility] Comment on above: Order Comment: RIGHT BICEP Performed By: #### 3 0313 #### [facility] [address] [place] [address], [facility] Hemoglobin (Bld) [Mass/Vol] 8.8 g/dL Low 13.0-17.0 [facility] Comment on above: Order Comment: RIGHT BICEP Performed By: #### 3 0313 #### [facility] [address] [place] [address], [place] IMM PLATELET FRAC 14.2 % High 0.8-6.3 [facility] Comment on above: Order Comment: RIGHT BICEP Performed By: #### 3 0313 #### [facility] [address] [place] [address], [facility] Lymphocytes (Bld) [#/Vol] 0.5 10*3/uL Low 1.2-4.0 [facility] Comment on above: Order Comment: RIGHT BICEP Performed By: #### 3 0313 #### [facility] [address] [place] [id number], [place] Lymphocytes/100 WBC (Bld) 14.2 % Low 20.0-45.0 [facility] Comment on above: Order Comment: RIGHT BICEP Performed By: #### 3 0313 #### [facility] [address] [place] [address], [facility] MACRO Slight Normal [facility] Comment on above: Order Comment: RIGHT BICEP Performed By: #### 3 0313 #### [facility] [address] [facility] [place] [place] [address], [facility] MCH (RBC) [Entitic mass] 34.6 pg High 27.0-33.0 [facility] Comment on above: Order Comment: RIGHT BICEP Performed By: #### 3 0313 #### [facility] [address] [facility] [place] [address], [facility] MCHC (RBC) [Mass/Vol] 31.5 g/dL Low 32.0-35.0 [facility] Comment on above: Order Comment: RIGHT BICEP Performed By: #### 3 0313 #### [facility] [address] [facility] [place] [address], [facility] MCV (RBC) [Entitic vol] 109.8 fL High 82.0-98.0 [facility] Comment on above: Order Comment: RIGHT BICEP Performed By: #### 3 0313 #### [facility] [address] [facility] [place] [address], [facility] Monocytes (Bld) [#/Vol] 0.4 10*3/uL Normal 0.1-1.0 [facility] Comment on above: Order Comment: RIGHT BICEP Performed By: #### 3 0313 #### [facility] [address] [facility]. [address] MONOS 11.3 % Normal 5.0-12.0 [facility] Comment on above: Order Comment: RIGHT BICEP Performed By: #### 3 0313 #### [facility] [address] [facility] [place] [address], [facility] MYELOS 6.6 % High 0.0-0.0 [facility] Comment on above: Order Comment: RIGHT BICEP Performed By: #### 3 0313 #### [facility] [address] [place] [address], [facility] Neutrophils/100 WBC (Bld) 67.0 % Normal 40.0-72.0 [facility] Comment on above: Order Comment: RIGHT BICEP Performed By: #### 3 0313 #### [facility] [address] [place] [id number], [facility] Nucleated RBC/100 WBC (Bld) [Ratio] 1 % High 0-0 [facility] Comment on above: Order Comment: RIGHT BICEP Performed By: #### 3 0313 #### [facility] [address] [place] [address], [facility] PLAT CNT 186 10*3/uL Normal 150-400 [facility] Comment on above: Order Comment: RIGHT BICEP Performed By: #### 3 0313 #### [facility] [address] [place] [address], [facility] POIK Slight Normal [facility] Comment on above: Order Comment: RIGHT BICEP Performed By: #### 3 0313 #### [facility] [address] [place] [address], [facility] RBC (Bld) [#/Vol] 2.54 10*6/uL Low 4.20-5.70 [facility] Comment on above: Order Comment: RIGHT BICEP Performed By: #### 3 0313 #### [facility] [address] [place] [address], [facility] WBC (Bld) [#/Vol] 3.77 10*3/uL Low 4.00-10.60 [facility] Comment on above: Order Comment: RIGHT BICEP Performed By: #### 3 0313 #### [facility] [address] [place] [id number], [facility] COMP METABOLIC PANELon 11-24 Albumin [Mass/Vol] 3.6 g/dL Normal 3.5-5.7 [facility] Comment on above: Order Comment: Evalu ate for Cardiomegaly Performed By: #### 0 0121, 11108, 61965 ####[facility] [place] [address], [facility] ALKALINE PHOSPH 44 IU/L Normal 34-104 [facility] Comment on above: Order Comment: Evalu ate for Cardiomegaly Performed By: #### 0 0121, 36272, 46304 ####[facility] [place] [address], [facility] ALT [Catalytic activity/Vol] 36 U/L Normal 7-52 [facility] Comment on above: Order Comment: Evalu ate for Cardiomegaly Performed By: #### 0 0121, 28890, 53913 ####[facility] [place] [address], [facility] AST [Catalytic activity/Vol] 23 U/L Normal 13-39 [facility] Comment on above: Order Comment: Evalu ate for Cardiomegaly Performed By: #### 0 0121, 62716, 26774 ####[facility] [place] [address], [facility] Bilirubin [Mass/Vol] 0.8 mg/dL Normal 0.3-1.0 [facility] Comment on above: Order Comment: Evalu ate for Cardiomegaly Performed By: #### 0 0121, 34394, 70939 ####[facility] [place] [address], [facility] Calcium [Mass/Vol] 8.8 mg/dL Normal 8.6-10.3 [facility] Comment on above: Order Comment: Evalu ate for Cardiomegaly Performed By: #### 0 0121, 48509, 27801 ####[facility] [place] [address], [place] Chloride [Moles/Vol] 103 mmol/L Normal 98-107 [facility] Comment on above: Order Comment: Evalu ate for Cardiomegaly Performed By: #### 0 0121, 41499, 10307 ####[facility] [place] [address], [facility] CO2 [Moles/Vol] 30 mmol/L Normal 21-31 [facility] Comment on above: Order Comment: Evalu ate for Cardiomegaly Performed By: #### 0 0121, 43863, 32753 ####[facility] [place] [address], [facility] Creatinine [Mass/Vol] 1.54 mg/dL High 0.70-1.30 [facility] Comment on above: Order Comment: Evalu ate for Cardiomegaly Performed By: #### 0 0121, 53458, 57659 ####[facility] [place] [address], [facility] eGFR- 53 ml/min/1.73sq m Abnormal >60 [facility] Comment on above: Order Comment: Evalu ate for Cardiomegaly Result Comment: Calc ulation may not be valid for patients over 70 years Performed By: #### 0 0121, 34365, 06880 ####[facility] [place] [address], [facility] eGFR- non- 43 ml/min/1.73sq m Abnormal >60 [facility] Comment on above: Order Comment: Evalu ate for Cardiomegaly Result Comment: Calc ulation may not be valid for patients over 70 years Performed By: #### 0 0121, 48864, 28260 ####[facility] [place] [address], [place] Glucose [Mass/Vol] 173 mg/dL High 70-100 [facility] Comment on above: Order Comment: Evalu ate for Cardiomegaly Performed By: #### 0 0121, 78541, 17374 ####[facility] [place] [address], [place] Potassium [Moles/Vol] 3.5 mmol/L Normal 3.5-5.1 [facility] Comment on above: Order Comment: Evalu ate for Cardiomegaly Performed By: #### 0 0121, 34460, 53282 ####[facility] [place] [address], [facility] Protein [Mass/Vol] 6.2 g/dL Normal 6.0-8.3 [facility] Comment on above: Order Comment: Evalu ate for Cardiomegaly Performed By: #### 0 0121, 04364, 69564 ####[facility] [place] [address], [facility] Sodium [Moles/Vol] 143 mmol/L Normal 136-145 [facility] Comment on above: Order Comment: Evalu ate for Cardiomegaly Performed By: #### 0 0121, 51870, 05435 ####[facility] [place] [address], [facility] Urea nitrogen [Mass/Vol] 41 mg/dL High 7-25 [facility] Comment on above: Order Comment: Evalu ate for Cardiomegaly Performed By: #### 0 0121, 55944, 94559 ####[facility] [place] [address], [facility] LIPID PROFILEon 11-24-2021 Cholesterol [Mass/Vol] 69 mg/dL Low 120-200 [facility] Comment on above: Result Comment: CHOL ESTEROL REFERENCE RANGE: 20 YEARS AND OLDER CARDIOVASCULAR RISK Less than 200 mg/dl Low Risk 200 to 239 mg/dl Borderline Risk 240 mg/dl and greater High Risk Performed By: #### 0 0121, 88460, 72195 ####[facility] [place] [address], [facility] Cholesterol in HDL [Mass/Vol] 21 mg/dL Low 23-92 The [facility] Comment on above: Result Comment: Slig ht variation in normal range could be due to gender and/or age. HDL CHOLESTEROL REFERENCE RANGE: 20 years and older Cardiovascular Risk > or =60 mg/dL Desirable 40 TO 59 mg/dL Low Risk <40 mg/dL High Risk Performed By: #### 0 0121, 41384, 36764 ####[facility] [facility] [place] [address], [facility] Cholesterol in LDL [Mass/Vol] 21 mg/dL Normal 0-130 [facility] Comment on above: Result Comment: LDL IS A CALCULATION LDL IS ONLY VALID IF THE TRIG IS LESS THAN 400. Performed By: #### 0 0121, 16770, 09353 ####[facility] [facility] [place] [address], [facility] Cholesterol.total/C holesterol in HDL [Mass ratio] 3.3 {ratio} Normal .0-4.5 [facility] Comment on above: Performed By: #### 0 0121, 30315, 93302 ####[facility] [facility] [place] [address], [facility] NON-HDL CHOLESTEROL 48 mg/dL Normal [facility] Comment on above: Performed By: #### 0 0121, 42723, 68037 ####[facility] [facility] [place] [address], [facility] Triglyceride [Mass/Vol] 134 mg/dL Normal 40-149 [facility] Comment on above: Result Comment: TRIG LYCERIDE REFERENCE RANGE: 20 YEARS AND OLDER CARDIOVASCULAR RISK LESS THAN 150 mg/dl LOW RISK 150 TO 199 mg/dl BORDERLINE RISK 200 mg/dl AND GREATER HIGH RISK Performed By: #### 0 0121, 92281, 27430 ####[facility] [facility] [place] [address], [facility] VLDL CHOL 27 mg/dL Normal 0-40 [facility] Comment on above: Performed By: #### 0 0121, 61001, 86267 ####[facility] [facility] [place] [address], [facility] MAGNESIUM BLOODon 11-24-2021 Magnesium [Mass/Vol] 2.2 mg/dL Normal 1.9-2.7 The [facility] Comment on above: Order Comment: Evalu ate for Cardiomegaly Performed By: #### 0 0121, 57842, 65363 ####[facility] [place] [address], [facility] POC GLUCOSE LABon 11-24-2021 Glucose [Mass/Vol] 194 mg/dL High 70-100 [facility] Comment on above: Performed By: #### 3 0313 #### [facility] [address] [place] [address], [place] Glucose [Mass/Vol] 222 mg/dL High 70-100 [facility] Comment on above: Performed By: #### 3 4 #### [facility] [address] [place] [address], [place] Glucose [Mass/Vol] 193 mg/dL High 70-100 [facility] Comment on above: Performed By: #### 8 5499 #### [facility] [address] [place] [address], [place] Glucose [Mass/Vol] 196 mg/dL High 70-100 [facility] Comment on above: Performed By: #### 3 2043 #### [facility] [address] [place] [address], [facility] COMP METABOLIC PANELon 11-23 Albumin [Mass/Vol] 3.3 g/dL Low 3.5-5.7 [facility] Comment on above: Order Comment: No: D o not add to previous draw Performed By: #### 3 0477 #### [facility] [address] [place] [address], [facility] ALKALINE PHOSPH 40 IU/L Normal 34-104 [facility] Comment on above: Order Comment: No: D o not add to previous draw Performed By: #### 3 0477 #### [facility] [address] [place] [address], [place] ALT [Catalytic activity/Vol] 34 U/L Normal 7-52 [facility] Comment on above: Order Comment: No: D o not add to previous draw Performed By: #### 3 0477 #### [facility] [address] [place] [address], [place] AST [Catalytic activity/Vol] 21 U/L Normal 13-39 [facility] Comment on above: Order Comment: No: D o not add to previous draw Performed By: #### 3 0477 #### [facility] [address] [place] [address], [place] Bilirubin [Mass/Vol] 0.8 mg/dL Normal 0.3-1.0 [facility] Comment on above: Order Comment: No: D o not add to previous draw Performed By: #### 3 0477 #### [facility] [address] [place] [address], [place] Calcium [Mass/Vol] 8.6 mg/dL Normal 8.6-10.3 [facility] Comment on above: Order Comment: No: D o not add to previous draw Performed By: #### 3 0477 #### [facility] [address] [place] [address], [place] Chloride [Moles/Vol] 103 mmol/L Normal 98-107 [facility] Comment on above: Order Comment: No: D o not add to previous draw Performed By: #### 3 0477 #### [facility] [address] [place] [address], [place] CO2 [Moles/Vol] 30 mmol/L Normal 21-31 [facility] Comment on above: Order Comment: No: D o not add to previous draw Performed By: #### 3 0477 #### [facility] [address] [place] [address], [place] Creatinine [Mass/Vol] 1.88 mg/dL High 0.70-1.30 [facility] Comment on above: Order Comment: No: D o not add to previous draw Performed By: #### 3 0477 #### [facility] [address] [place] [address], [place] eGFR- 42 ml/min/1.73sq m Abnormal >60 [facility] Comment on above: Order Comment: No: D o not add to previous draw Result Comment: Calc ulation may not be valid for patients over 70 years Performed By: #### 3 0477 #### [facility] [address] [place] [address], [place] eGFR- non- 35 ml/min/1.73sq m Abnormal >60 [facility] Comment on above: Order Comment: No: D o not add to previous draw Result Comment: Calc ulation may not be valid for patients over 70 years Performed By: #### 3 0477 #### [facility] [address] [place] [address], [place] Glucose [Mass/Vol] 140 mg/dL High 70-100 [facility] Comment on above: Order Comment: No: D o not add to previous draw Performed By: #### 3 0477 #### [facility] [address] [place] [address], [place] Potassium [Moles/Vol] 3.5 mmol/L Normal 3.5-5.1 [facility] Comment on above: Order Comment: No: D o not add to previous draw Performed By: #### 3 0477 #### [facility] [address] [place] [address], [place] Protein [Mass/Vol] 5.9 g/dL Low 6.0-8.3 [facility] Comment on above: Order Comment: No: D o not add to previous draw Performed By: #### 3 0477 #### [facility] [address] [place] [address], [place] Sodium [Moles/Vol] 143 mmol/L Normal 136-145 [facility] Comment on above: Order Comment: No: D o not add to previous draw Performed By: #### 3 0477 #### [facility] [address] [place] [address], [facility] Urea nitrogen [Mass/Vol] 47 mg/dL High 7-25 [facility] Comment on above: Order Comment: No: D o not add to previous draw Performed By: #### 3 0477 #### [facility] [address] [place] [address], [facility] HEMOGLOBINon 11-23-2021 Hemoglobin (Bld) [Mass/Vol] 8.7 g/dL Low 13.0-17.0 The [facility] Comment on above: Order Comment: pleas e start lab draw at 5pm followed by q12 at 5am tomorrow No: Do not add to previous draw Performed By: #### 9 9 #### [facility] [address] [place] [address], [facility] Hemoglobin (Bld) [Mass/Vol] 8.3 g/dL Low 13.0-17.0 [facility] Comment on above: Order Comment: pleas e start lab draw at 5pm followed by q12 at 5am tomorrow Unknown Performed By: #### 9 2089 #### [facility] [address] [facility] [place] [address], [facility] MAGNESIUM BLOODon 11-23-2021 Magnesium [Mass/Vol] 2.2 mg/dL Normal 1.9-2.7 The [facility] Comment on above: Order Comment: No: D o not add to previous draw Performed By: #### 3 0477 #### [facility] [address] [facility] [place] [address], [facility] POC GLUCOSE LABon 11-23-2021 Glucose [Mass/Vol] 159 mg/dL High 70-100 The [facility] Comment on above: Performed By: #### 3 0313 #### [facility] [address] [facility] [place] [address], [facility] Glucose [Mass/Vol] 226 mg/dL High 70-100 The [facility] Comment on above: Performed By: #### 8 5499 #### [facility] [address] [place] [address], [facility] PORTABLE CHEST 1 VIEWon 10-27 PORTABLE CHEST 1 VIEW [facility] Department of Radiology [address] [place] [address] [id number] ===== Patient Name: SANDIP BROUSSARD : 1940 Sex: M Age: Race: White Pt. Location: [id number] Patient Status: I Ordered Date: 11/23/2021 1:10:00 PM Completed Date: 11/23/2021 01:28 PM Requesting Provider: ROBERT CLAY Attending Provider: LUIS RUIZ Report Copy To: Signs & Symptoms: O2 Desaturation History: Comments: Cardiomegaly Exam: PORTABLE CHEST 1 VIEW ===== PORTABLE CHEST 1 VIEW 11/23/2021 1:28 PM [...] cardiomegaly. Electronically signed: Jasper Plunkett. Transcribed by: [email or web address], User Resident: Electronically Signed by: JASPER PLUNKETT @ 11/23/2021 02:34 PM Normal [facility] Comment on above: Order Comment: Cardi omegaly COMP METABOLIC PANELon 11-22 Albumin [Mass/Vol] 3.3 g/dL Low 3.5-5.7 The [facility] Comment on above: Order Comment: No: D o not add to previous draw Performed By: #### 1 0070, 31817 ####[facility] [place] [address], [facility] ALKALINE PHOSPH 37 IU/L Normal 34-104 The [facility] Comment on above: Order Comment: No: D o not add to previous draw Performed By: #### 1 0070, 01825 ####[facility] [place] [address], [place] ALT [Catalytic activity/Vol] 32 U/L Normal 7-52 [facility] Comment on above: Order Comment: No: D o not add to previous draw Performed By: #### 1 0070, 71568 ####[facility] [place] [address], [place] AST [Catalytic activity/Vol] 17 U/L Normal 13-39 [facility] Comment on above: Order Comment: No: D o not add to previous draw Performed By: #### 1 0070, 93114 ####[facility] [place] [address], [place] Bilirubin [Mass/Vol] 0.9 mg/dL Normal 0.3-1.0 [facility] Comment on above: Order Comment: No: D o not add to previous draw Performed By: #### 1 0070, 64886 ####[facility] [place] [address], [place] Calcium [Mass/Vol] 8.3 mg/dL Low 8.6-10.3 [facility] Comment on above: Order Comment: No: D o not add to previous draw Performed By: #### 1 0070, 10503 ####[facility] [place] [address], [facility] Chloride [Moles/Vol] 103 mmol/L Normal 98-107 The [facility] Comment on above: Order Comment: No: D o not add to previous draw Performed By: #### 1 0070, 10228 ####[facility] [place] [address], [place] CO2 [Moles/Vol] 28 mmol/L Normal 21-31 [facility] Comment on above: Order Comment: No: D o not add to previous draw Performed By: #### 1 0, 77123 ####[facility] [place] [address], [facility] Creatinine [Mass/Vol] 1.92 mg/dL High 0.70-1.30 The [facility] Comment on above: Order Comment: No: D o not add to previous draw Performed By: #### 1 0, 01283 ####[facility] [place] [address], [facility] eGFR- 41 ml/min/1.73sq m Abnormal >60 [facility] Comment on above: Order Comment: No: D o not add to previous draw Result Comment: Calc ulation may not be valid for patients over 70 years Performed By: #### 1 0, 07035 ####[facility] [place] [address], [facility] eGFR- non- 34 ml/min/1.73sq m Abnormal >60 The [facility] Comment on above: Order Comment: No: D o not add to previous draw Result Comment: Calc ulation may not be valid for patients over 70 years Performed By: #### 1 0070, 46447 ####[facility] [place] [address], [facility] Glucose [Mass/Vol] 128 mg/dL High 70-100 The [facility] Comment on above: Order Comment: No: D o not add to previous draw Performed By: #### 1 69, 12453 ####[facility] [place] [address], [place] Potassium [Moles/Vol] 3.5 mmol/L Normal 3.5-5.1 The [facility] Comment on above: Order Comment: No: D o not add to previous draw Performed By: #### 1 69, [id number] ####[facility] [place] [address], [facility] Protein [Mass/Vol] 5.7 g/dL Low 6.0-8.3 The [facility] Comment on above: Order Comment: No: D o not add to previous draw Performed By: #### 1 69, ####[facility] [place] [address], [place] Sodium [Moles/Vol] 142 mmol/L Normal 136-145 The [facility] Comment on above: Order Comment: No: D o not add to previous draw Performed By: #### 1 69, ####[facility] [place] [address], [facility] Urea nitrogen [Mass/Vol] 51 mg/dL High 7-25 The [facility] Comment on above: Order Comment: No: D o not add to previous draw Performed By: #### 1 69, 20002 ####[facility] [place] [address], [place] HEMOGLOBINon 11-22-2021 Hemoglobin (Bld) [Mass/Vol] 9.1 g/dL Low 13.0-17.0 The [facility] Comment on above: Order Comment: meredith holden start lab draw at 5pm followed by q12 at 5am tomorrow No: Do not add to previous draw Performed By: #### 9 2089 #### [facility] [address] [place] [address], [facility] MAGNESIUM BLOODon 11-22-2021 Magnesium [Mass/Vol] 2.1 mg/dL Normal 1.9-2.7 The [facility] Comment on above: Order Comment: No: D o not add to previous draw Performed By: #### 1 0070, 75525 ####[facility] [facility] [place] [address], [facility] POC GLUCOSE LABon 11-22-2021 Glucose [Mass/Vol] 155 mg/dL High 70-100 The [facility] Comment on above: Performed By: #### 8 5499 #### [facility] [address] [place] [address], [facility] Glucose [Mass/Vol] 227 mg/dL High 70-100 The [facility] Comment on above: Performed By: #### 8 5499 #### [facility] [address] [place] [address], [facility] Glucose [Mass/Vol] 141 mg/dL High 70-100 The [facility] Comment on above: Performed By: #### 3 2044 #### [facility] [address] [place] [address], [facility] UFH HEPARIN ASSAYon 11-23-19 22 UNFRACTIONATED HEPARIN 0.20 IU/mL Low 0.30-0.70 The [facility] Comment on above: Result Comment: Revloc roxaban and Apixaban will interfere with the anti Xa assay used to monitor UFH and LMWH. Performed By: #### 5 0103 #### [facility] [address] [place] [id number], [facility] CBC W/DIFFon 11-21-2021 ABS NEUTROPHILS 4.3 10*3/uL Normal 1.6-7.6 The [facility] Comment on above: Order Comment: RIGHT BICEP Performed By: #### 3 0313 #### [facility] [address] [place] [address], [place] ANISO Moderate Normal The [facility] Comment on above: Order Comment: RIGHT BICEP Performed By: #### 3 0313 #### [facility] [address] [place] [address], [place] Basophils (Bld) [#/Vol] 0.0 10*3/uL Normal 0.0-0.2 The [facility] Comment on above: Order Comment: RIGHT BICEP Performed By: #### 3 0313 #### [facility] [address] [place] [address], [place] Basophils/100 WBC (Bld) 0.0 % Normal 0.0-1.0 The [facility] Comment on above: Order Comment: RIGHT BICEP Performed By: #### 3 3 #### [facility] [address] [place] [address], [place] Eosinophils (Bld) [#/Vol] 0.0 10*3/uL Normal 0.0-0.5 The [facility] Comment on above: Order Comment: RIGHT BICEP Performed By: #### 3 0313 #### [facility] [address] [place] [address], [place] Eosinophils/100 WBC (Bld) 0.0 % Normal 0.0-6.0 The [facility] Comment on above: Order Comment: RIGHT BICEP Performed By: #### 3 0313 #### [facility] [address] [place] [address], [place] Erythrocyte distribution width (RBC) [Ratio] 25.5 % High 11.5-15.0 The [facility] Comment on above: Order Comment: RIGHT BICEP Performed By: #### 3 0313 #### [facility] [address] [place] [address], [place] GIANT PLATELETS Present Normal The [facility] Comment on above: Order Comment: RIGHT BICEP Performed By: #### 3 0313 #### [facility] [address] [place] [address], [facility] Hematocrit (Bld) [Volume fraction] 25.6 % Low 39.0-50.0 The [facility] Comment on above: Order Comment: RIGHT BICEP Performed By: #### 3 3 #### [facility] [address] [place] [address], [facility] Hemoglobin (Bld) [Mass/Vol] 8.7 g/dL Low 13.0-17.0 The [facility] Comment on above: Order Comment: RIGHT BICEP Performed By: #### 3 0313 #### [facility] [address] [place] [address], [facility] IMM PLATELET FRAC 18.9 % High 0.8-6.3 The [facility] Comment on above: Order Comment: RIGHT BICEP Performed By: #### 3 0313 #### [facility] [address] [place] [address], [facility] Lymphocytes (Bld) [#/Vol] 0.4 10*3/uL Low 1.2-4.0 The [facility] Comment on above: Order Comment: RIGHT BICEP Performed By: #### 3 0313 #### [facility] [address] [place] [address], [facility] Lymphocytes/100 WBC (Bld) 7.7 % Low 20.0-45.0 The [facility] Comment on above: Order Comment: RIGHT BICEP Performed By: #### 3 0313 #### [facility] [address] [place] [address], [place] MACRO Slight Normal The [facility] Comment on above: Order Comment: RIGHT BICEP Performed By: #### 3 3 #### [facility] [address] [place] [address], [place] MCH (RBC) [Entitic mass] 35.2 pg High 27.0-33.0 The [facility] Comment on above: Order Comment: RIGHT BICEP Performed By: #### 3 0313 #### [facility] [address] [place] [address], [facility] MCHC (RBC) [Mass/Vol] 34.0 g/dL Normal 32.0-35.0 The [facility] Comment on above: Order Comment: RIGHT BICEP Performed By: #### 3 0313 #### [facility] [address] [place] [address], [facility] MCV (RBC) [Entitic vol] 103.6 fL High 82.0-98.0 The [facility] Comment on above: Order Comment: RIGHT BICEP Performed By: #### 3 0313 #### [facility] [address] [place] [address], [facility] METAMYELO 1.9 % High 0.0-0.0 The [facility] Comment on above: Order Comment: RIGHT BICEP Performed By: #### 3 0313 #### [facility] [address] [place] [address], [facility] Monocytes (Bld) [#/Vol] 0.7 10*3/uL Normal 0.1-1.0 The [facility] Comment on above: Order Comment: RIGHT BICEP Performed By: #### 3 0313 #### [facility] [address] [place] [address], [facility] MONOS 12.5 % High 5.0-12.0 The [facility] Comment on above: Order Comment: RIGHT BICEP Performed By: #### 3 0313 #### [facility] [address] [place] [address], [facility] MYELOS 1.0 % High 0.0-0.0 The [facility] Comment on above: Order Comment: RIGHT BICEP Performed By: #### 3 0313 #### [facility] [address] [place] [address], [facility] Neutrophils/100 WBC (Bld) 76.9 % High 40.0-72.0 The [facility] Comment on above: Order Comment: RIGHT BICEP Performed By: #### 3 0313 #### [facility] [address] [place] [id number], [facility] Nucleated RBC/100 WBC (Bld) [Ratio] 1 % High 0-0 The [facility] Comment on above: Order Comment: RIGHT BICEP Performed By: #### 3 0313 #### [facility] [address] [place] [address], [facility] PLAT CNT 122 10*3/uL Low 150-400 The [facility] Comment on above: Order Comment: RIGHT BICEP Performed By: #### 3 0313 #### [facility] [address] [place] [address], [facility] POIK Slight Normal The [facility] Comment on above: Order Comment: RIGHT BICEP Performed By: #### 3 0313 #### [facility] [address] [place] [address], [facility] RBC (Bld) [#/Vol] 2.47 10*6/uL Low 4.20-5.70 The [facility] Comment on above: Order Comment: RIGHT BICEP Performed By: #### 3 0313 #### [facility] [address] [place] [address], [facility] WBC (Bld) [#/Vol] 5.62 10*3/uL Normal 4.00-10.60 The [facility] Comment on above: Order Comment: RIGHT BICEP Performed By: #### 3 0313 #### [facility] [address] [place] [address], [facility] COMP METABOLIC PANELon 11-21 Albumin [Mass/Vol] 3.3 g/dL Low 3.5-5.7 The [facility] Comment on above: Order Comment: No: D o not add to previous draw Performed By: #### 8 6001 #### [facility] [address] [place] [address], [place] ALKALINE PHOSPH 36 IU/L Normal 34-104 The [facility] Comment on above: Order Comment: No: D o not add to previous draw Performed By: #### 8 6001 #### [facility] [address] [place] [address], [place] ALT [Catalytic activity/Vol] 46 U/L Normal 7-52 The [facility] Comment on above: Order Comment: No: D o not add to previous draw Performed By: #### 8 6001 #### [facility] [address] [place] [address], [place] AST [Catalytic activity/Vol] 24 U/L Normal 13-39 The [facility] Comment on above: Order Comment: No: D o not add to previous draw Performed By: #### 8 6001 #### [facility] [address] [place] [address], [place] Bilirubin [Mass/Vol] 1.0 mg/dL Normal 0.3-1.0 The [facility] Comment on above: Order Comment: No: D o not add to previous draw Performed By: #### 8 6001 #### [facility] [address] [place] [address], [place] Calcium [Mass/Vol] 8.4 mg/dL Low 8.6-10.3 The [facility] Comment on above: Order Comment: No: D o not add to previous draw Performed By: #### 8 6001 #### [facility] [address] [place] [address], [place] Chloride [Moles/Vol] 103 mmol/L Normal 98-107 The [facility] Comment on above: Order Comment: No: D o not add to previous draw Performed By: #### 8 6001 #### [facility] [address] [place] [address], [place] CO2 [Moles/Vol] 31 mmol/L Normal 21-31 The [facility] Comment on above: Order Comment: No: D o not add to previous draw Performed By: #### 8 6001 #### [facility] [address] [place] [address], [place] Creatinine [Mass/Vol] 2.18 mg/dL High 0.70-1.30 The [facility] Comment on above: Order Comment: No: D o not add to previous draw Performed By: #### 8 6001 #### [facility] [address] [place] [address], [place] eGFR- 35 ml/min/1.73sq m Abnormal >60 The [facility] Comment on above: Order Comment: No: D o not add to previous draw Result Comment: Calc ulation may not be valid for patients over 70 years Performed By: #### 8 6001 #### [facility] [address] [place] [address], [place] eGFR- non- 29 ml/min/1.73sq m Abnormal >60 The [facility] Comment on above: Order Comment: No: D o not add to previous draw Result Comment: Calc ulation may not be valid for patients over 70 years Performed By: #### 8 6001 #### [facility] [address] [place] [address], [place] Glucose [Mass/Vol] 140 mg/dL High 70-100 The [facility] Comment on above: Order Comment: No: D o not add to previous draw Performed By: #### 8 6001 #### [facility] [address] [place] [address], [place] Potassium [Moles/Vol] 3.3 mmol/L Low 3.5-5.1 The [facility] Comment on above: Order Comment: No: D o not add to previous draw Performed By: #### 8 6001 #### [facility] [address] [place] [address], [place] Protein [Mass/Vol] 5.9 g/dL Low 6.0-8.3 The [facility] Comment on above: Order Comment: No: D o not add to previous draw Performed By: #### 8 6001 #### [facility] [address] [place] [address], [facility] Sodium [Moles/Vol] 143 mmol/L Normal 136-145 The [facility] Comment on above: Order Comment: No: D o not add to previous draw Performed By: #### 8 6001 #### [facility] [address] [place] [address], [facility] Urea nitrogen [Mass/Vol] 58 mg/dL High 7-25 The [facility] Comment on above: Order Comment: No: D o not add to previous draw Performed By: #### 8 6001 #### [facility] [address] [place] [address], [facility] FOLATE SERUMon 11-21-2021 SERUM FOLATE 4.85 ng/mL Low 6.60-1000.00 The [facility] Comment on above: Result Comment: Norm al range reflects World Health Organization International Standard Performed By: #### 1 0070, 51524, 38030, 13452 ####[facility] [place] [address], [facility] HEMATOCRITon 11-21-2021 Hematocrit (Bld) [Volume fraction] 25.6 % Low 39.0-50.0 The [facility] Comment on above: Order Comment: pleas e start lab draw at 5pm followed by q12 at 5am tomorrow No: Do not add to previous draw Performed By: #### 9 2089 #### [facility] [address] [place] [address], [facility] HEMOGLOBINon 11-21-2021 Hemoglobin (Bld) [Mass/Vol] 8.8 g/dL Low 13.0-17.0 The [facility] Comment on above: Order Comment: pleas e start lab draw at 5pm followed by q12 at 5am tomorrow No: Do not add to previous draw Performed By: #### 9 9 #### [facility] [address] [place] [address], [facility] Hemoglobin (Bld) [Mass/Vol] 8.5 g/dL Low 13.0-17.0 The [facility] Comment on above: Order Comment: meredith e start lab draw at 5pm followed by q12 at 5am tomorrow No: Do not add to previous draw Performed By: #### 9 2088 #### [facility] [address] [place] [address], [facility] MAGNESIUM BLOODon 11-21-2021 Magnesium [Mass/Vol] 2.2 mg/dL Normal 1.9-2.7 The [facility] Comment on above: Order Comment: No: D o not add to previous draw Performed By: #### 8 6001 #### [facility] [address] [place] [address], [facility] POC GLUCOSE LABon 11-21-2021 Glucose [Mass/Vol] 135 mg/dL High 70-100 The [facility] Comment on above: Performed By: #### 8 5499 #### [facility] [address] [place] [address], [facility] Glucose [Mass/Vol] 142 mg/dL High 70-100 The [facility] Comment on above: Performed By: #### 8 5499 #### [facility] [address] [place] [address], [facility] UFH HEPARIN ASSAYon 11-22-19 UNFRACTIONATED HEPARIN 0.41 IU/mL Normal 0.30-0.70 The [facility] Comment on above: Result Comment: Brittani roxaban and Apixaban will interfere with the anti Xa assay used to monitor UFH and LMWH. Performed By: #### 3 0477 #### [facility] [address] [place] [address], [facility] VITAMIN B12on 11-21-2021 Cobalamin (Vitamin B12) [Mass/Vol] 422 pg/mL Normal 180-914 The [facility] Comment on above: Result Comment: REFE RENCE RANGES: 180-914 pg/mL Normal 145-179 pg/mL Indeterminate <145 pg/mL Deficient Performed By: #### 1 0070, 56552, 93088, 12471 ####[facility] [place] [address], [facility] BASIC METABOLIC PANELon 04-2 Calcium [Mass/Vol] 8.4 mg/dL Low 8.6-10.3 The [facility] Comment on above: Order Comment: No: D o not add to previous draw Performed By: #### 3 0477 #### [facility] [address] [place] [address], [place] Chloride [Moles/Vol] 104 mmol/L Normal 98-107 The [facility] Comment on above: Order Comment: No: D o not add to previous draw Performed By: #### 3 0477 #### [facility] [address] [place] [address], [place] CO2 [Moles/Vol] 31 mmol/L Normal 21-31 The [facility] Comment on above: Order Comment: No: D o not add to previous draw Performed By: #### 3 0477 #### [facility] [address] [place] [address], [place] Creatinine [Mass/Vol] 2.22 mg/dL High 0.70-1.30 The [facility] Comment on above: Order Comment: No: D o not add to previous draw Performed By: #### 3 0477 #### [facility] [address] [place] [address], [place] eGFR- 34 ml/min/1.73sq m Abnormal >60 The [facility] Comment on above: Order Comment: No: D o not add to previous draw Result Comment: Calc ulation may not be valid for patients over 70 years Performed By: #### 3 0477 #### [facility] [address] [place] [address], [facility] eGFR- non- 28 ml/min/1.73sq m Abnormal >60 The [facility] Comment on above: Order Comment: No: D o not add to previous draw Result Comment: Calc ulation may not be valid for patients over 70 years Performed By: #### 3 0477 #### [facility] [address] [place] [address], [place] Glucose [Mass/Vol] 139 mg/dL High 70-100 The [facility] Comment on above: Order Comment: No: D o not add to previous draw Performed By: #### 3 0477 #### [facility] [address] [place] [address], [place] Potassium [Moles/Vol] 3.3 mmol/L Low 3.5-5.1 The [facility] Comment on above: Order Comment: No: D o not add to previous draw Performed By: #### 3 0477 #### [facility] [address] [place] [address], [place] Sodium [Moles/Vol] 143 mmol/L Normal 136-145 The [facility] Comment on above: Order Comment: No: D o not add to previous draw Performed By: #### 3 0477 #### [facility] [address] [place] [address], [place] Urea nitrogen [Mass/Vol] 49 mg/dL High 7-25 The [facility] Comment on above: Order Comment: No: D o not add to previous draw Performed By: #### 3 0477 #### [facility] [address] [place] [address], [place] CBC COMPLETE BLOOD COUNTon 0 - Hematocrit (Bld) [Volume fraction] 21.9 % Low 39.0-50.0 The [facility] Comment on above: Order Comment: pleas e start lab draw at 5pm followed by q12 at 5am tomorrow No: Do not add to previous draw Performed By: #### 2088 #### [facility] [address] [place] [address], [facility] Hemoglobin (Bld) [Mass/Vol] 7.1 g/dL Low 13.0-17.0 The [facility] Comment on above: Order Comment: pleas e start lab draw at 5pm followed by q12 at 5am tomorrow No: Do not add to previous draw Performed By: #### 2088 #### [facility] [address] [place] [address], [facility] IMM PLATELET FRAC 20.3 % High 0.8-6.3 The [facility] Comment on above: Order Comment: pleas e start lab draw at 5pm followed by q12 at 5am tomorrow No: Do not add to previous draw Performed By: #### 2088 #### [facility] [address] [facility] [place] [address], [facility] MCH (RBC) [Entitic mass] 36.4 pg High 27.0-33.0 The [facility] Comment on above: Order Comment: pleas e start lab draw at 5pm followed by q12 at 5am tomorrow No: Do not add to previous draw Performed By: #### 2088 #### [facility] [address] [facility] [address] MCHC (RBC) [Mass/Vol] 32.4 g/dL Normal 32.0-35.0 The [facility] Comment on above: Order Comment: pleas e start lab draw at 5pm followed by q12 at 5am tomorrow No: Do not add to previous draw Performed By: #### 2088 #### [facility] [address] [facility]. [place] [id number], [facility] MCV (RBC) [Entitic vol] 112.3 fL High 82.0-98.0 The [facility] Comment on above: Order Comment: pleas e start lab draw at 5pm followed by q12 at 5am tomorrow No: Do not add to previous draw Performed By: #### 2088 #### [facility] [address] [facility] [place] [address], [facility] Nucleated RBC/100 WBC (Bld) [Ratio] 0 % Normal 0-0 The [facility] Comment on above: Order Comment: pleas e start lab draw at 5pm followed by q12 at 5am tomorrow No: Do not add to previous draw Performed By: #### 2088 #### [facility] [address] [facility] [place] [address], [facility] PLAT CNT 91 10*3/uL Low 150-400 The [facility] Comment on above: Order Comment: pleas e start lab draw at 5pm followed by q12 at 5am tomorrow No: Do not add to previous draw Performed By: #### 2088 #### [facility] [address] [facility] [place] [address], [facility] RBC (Bld) [#/Vol] 1.95 10*6/uL Low 4.20-5.70 The [facility] Comment on above: Order Comment: pleas e start lab draw at 5pm followed by q12 at 5am tomorrow No: Do not add to previous draw Performed By: #### 2088 #### [facility] [address] [facility] [place] [address], [facility] RDW ---- Normal 11.5-15.0 The [facility] Comment on above: Order Comment: pleas e start lab draw at 5pm followed by q12 at 5am tomorrow No: Do not add to previous draw Performed By: #### 2088 #### [facility] [address] [facility] [place] [id number], [facility] WBC (Bld) [#/Vol] 8.30 10*3/uL Normal 4.00-10.60 The [facility] Comment on above: Order Comment: pleas e start lab draw at 5pm followed by q12 at 5am tomorrow No: Do not add to previous draw Performed By: #### 2088 #### [facility] [address] [place] [address], [facility] HEMATOCRITon 11-20-2021 Hematocrit (Bld) [Volume fraction] 23.6 % Low 39.0-50.0 The [facility] Comment on above: Order Comment: pleas e start lab draw at 5pm followed by q12 at 5am tomorrow No: Do not add to previous draw Performed By: #### 9 2088 #### [facility] [address] [place] [address], [facility] HEMOGLOBINon 11-20-2021 Hemoglobin (Bld) [Mass/Vol] 7.8 g/dL Low 13.0-17.0 [facility] Comment on above: Order Comment: pleas e start lab draw at 5pm followed by q12 at 5am tomorrow No: Do not add to previous draw Performed By: #### 9 2088 #### [facility] [address] [place] [address], [facility] MAGNESIUM BLOODon 11-20-2021 Magnesium [Mass/Vol] 2.2 mg/dL Normal 1.9-2.7 [facility] Comment on above: Order Comment: No: D o not add to previous draw Performed By: #### 3 0477 #### [facility] [address] [place] [address], [facility] PHOSPHORUS BLOODon Phosphate [Mass/Vol] 3.7 mg/dL Normal 2.5-5.0 The [facility] Comment on above: Order Comment: No: D o not add to previous draw Performed By: #### 3 0477 #### [facility] [address] [place] [address], [facility] POC GLUCOSE LABon 11-20-2021 Glucose [Mass/Vol] 137 mg/dL High 70-100 [facility] Comment on above: Performed By: #### 3 0313 #### [facility] [address] [place] [address], [facility] Glucose [Mass/Vol] 134 mg/dL High 70-100 [facility] Comment on above: Performed By: #### 3 2044 #### [facility] [address] [place] [address], [facility] Glucose [Mass/Vol] 148 mg/dL High 70-100 The [facility] Comment on above: Performed By: #### 8 5499 #### [facility] [address] [place] [address], [facility] RBC'S 1 UNITon 11-20-2021 CROSSMATCH INTERP 1 COMP Normal [facility] Comment on above: Performed By: #### 8 [id number] #### [facility] [address] [facility] [place] [address], [facility] PRODUCT CODE 1 E0336 Normal [facility] Comment on above: Performed By: #### 8 6001 #### [facility] [address] [facility] [place] [address], [facility] PRODUCT STATUS 1 RE Normal [facility] Comment on above: Result Comment: Resu lt changed by IF on 11/21/2021 07:27. The previous value was XM. Performed By: #### 8 [id number] #### [facility] [address] [facility] [place] [address], [facility] UNIT ABO 1 A Normal [facility] Comment on above: Performed By: #### 8 6001 #### [facility] [address] [facility] [place] [address], [facility] UNIT ID 1 [id number] Normal [facility] Comment on above: Performed By: #### 8 6001 #### [facility] [address] [facility] [place] [address], [facility] UNIT RH 1 Positive Normal [facility] Comment on above: Performed By: #### 8 [id number] #### [facility] [address] [place] [address], [facility] RBC'S 2 UNITSon 11-20-2021 CROSSMATCH INTERP 1 COMP Normal [facility] Comment on above: Order Comment: Evalu ate for Cardiomegaly Performed By: #### 8 6002 ####[facility] [place] [address], [facility] CROSSMATCH INTERP 2 COMP Normal [facility] Comment on above: Order Comment: Evalu ate for Cardiomegaly Performed By: #### 8 6002 ####[facility] [place] [address], [facility] PRODUCT CODE [address] [facility] Comment on above: Order Comment: Evalu ate for Cardiomegaly Performed By: #### 8 [id number] ####[facility] [place] [address], [facility] PRODUCT CODE 2 E0336 Normal [facility] Comment on above: Order Comment: Evalu ate for Cardiomegaly Performed By: #### 8 6002 ####[facility] [place] [address], [facility] PRODUCT STATUS 1 PT Normal [facility] Comment on above: Order Comment: Evalu ate for Cardiomegaly Result Comment: Resu lt changed by IF on 11/20/2021 08:02. The previous value was XM. Result changed by IF on 11/21/2021 00:30. The previous value was IS. Performed By: #### 8 [id number] ####[facility] [place] [address], [facility] PRODUCT STATUS [address] [facility] Comment on above: Order Comment: Evalu ate for Cardiomegaly Result Comment: Resu lt changed by IF on 11/20/2021 19:00. The previous value was XX. Result changed by IF on 11/21/2021 00:30. The previous value was IS. Performed By: #### 8 [id number] ####[facility] [place] [address], [place] UNIT ABO 1 A Normal [facility] Comment on above: Order Comment: Evalu ate for Cardiomegaly Performed By: #### 8 6002 ####[facility] [place] [address], [facility] UNIT ABO 2 A Normal [facility] Comment on above: Order Comment: Evalu ate for Cardiomegaly Performed By: #### 8 6002 ####[facility] UNIT ID 1 [id number] Normal [facility] Comment on above: Order Comment: Evalu ate for Cardiomegaly Performed By: #### 8 6002 ####[facility] UNIT ID 2 [id number] Normal [facility] Comment on above: Order Comment: Evalu ate for Cardiomegaly Performed By: #### 8 6002 ####[facility] [place] [address], [facility] UNIT RH 1 Positive Normal [facility] Comment on above: Order Comment: Evalu ate for Cardiomegaly Performed By: #### 8 6002 ####[facility] [place] [address], [facility] UNIT RH 2 Positive Normal [facility] Comment on above: Order Comment: Evalu ate for Cardiomegaly Performed By: #### 8 6002 ####[facility] UFH HEPARIN ASSAYon 11-21-19 22 UNFRACTIONATED HEPARIN 0.32 IU/mL Normal 0.30-0.70 [facility] Comment on above: Result Comment: Revloc roxaban and Apixaban will interfere with the anti Xa assay used to monitor UFH and LMWH. Performed By: #### 3 0477 #### [facility] [address] UNFRACTIONATED HEPARIN 0.36 IU/mL Normal 0.30-0.70 [facility] Comment on above: Result Comment: Brittani roxaban and Apixaban will interfere with the anti Xa assay used to monitor UFH and LMWH. Performed By: #### 3 0477 #### [facility] [address] APTTon 11-19-2021 aPTT Coag (Bld) [Time] 32.7 s Normal 25.0-35.0 [facility] Comment on above: Order Comment: No: D [...] PURPOSE. Performed By: #### 5 0103 #### [facility] [address] [facility] [address] BASIC METABOLIC PANELon 10-27 Calcium [Mass/Vol] 8.3 mg/dL Low 8.6-10.3 [facility] Comment on above: Order Comment: Evalu ate for Cardiomegaly Performed By: #### 1 0070, 58459, 71370 ####[facility] [facility] [place] [address], [facility] Chloride [Moles/Vol] 104 mmol/L Normal 98-107 [facility] Comment on above: Order Comment: Evalu ate for Cardiomegaly Performed By: #### 1 0070, 27460, 42350 ####[facility] [facility] [place] [address], [facility] CO2 [Moles/Vol] 24 mmol/L Normal 21-31 [facility] Comment on above: Order Comment: Evalu ate for Cardiomegaly Performed By: #### 1 0070, 09045, 04378 ####[facility] [place] [address], [place] Creatinine [Mass/Vol] 2.03 mg/dL High 0.70-1.30 [facility] Comment on above: Order Comment: Evalu ate for Cardiomegaly Performed By: #### 1 0, 83245, 09418 ####[facility] [place] [address], [facility] eGFR- 38 ml/min/1.73sq m Abnormal >60 [facility] Comment on above: Order Comment: Evalu ate for Cardiomegaly Result Comment: Calc ulation may not be valid for patients over 70 years Performed By: #### 1 0, 37075, 87339 ####[facility] [place] [address], [facility] eGFR- non- 32 ml/min/1.73sq m Abnormal >60 [facility] Comment on above: Order Comment: Evalu ate for Cardiomegaly Result Comment: Calc ulation may not be valid for patients over 70 years Performed By: #### 1 0, 59921, 78750 ####[facility] [place] [address], [place] Glucose [Mass/Vol] 141 mg/dL High 70-100 [facility] Comment on above: Order Comment: Evalu ate for Cardiomegaly Performed By: #### 1 0, 38931, 12855 ####[facility] [place] [address], [place] Potassium [Moles/Vol] 3.8 mmol/L Normal 3.5-5.1 [facility] Comment on above: Order Comment: Evalu ate for Cardiomegaly Performed By: #### 1 0, 93637, 63829 ####[facility] [place] [address], [place] Sodium [Moles/Vol] 141 mmol/L Normal 136-145 [facility] Comment on above: Order Comment: Evalu ate for Cardiomegaly Performed By: #### 1 0070, 17835, 99090 ####[facility] [facility] [place] [address], [facility] Urea nitrogen [Mass/Vol] 42 mg/dL High 7-25 [facility] Comment on above: Order Comment: Evalu ate for Cardiomegaly Performed By: #### 1 0070, 98642, 58479 ####[facility] [facility] CBC COMPLETE BLOOD COUNTon 0 11-19-2021 Hematocrit (Bld) [Volume fraction] 24.9 % Low 39.0-50.0 [facility] Comment on above: Order Comment: RIGHT BICEP Performed By: #### 3 0313 #### [facility] [address] [facility] [place] [address], [facility] Hemoglobin (Bld) [Mass/Vol] 7.9 g/dL Low 13.0-17.0 [facility] Comment on above: Order Comment: RIGHT BICEP Performed By: #### 3 0313 #### [facility] [address] [facility] [place] [address], [facility] IMM PLATELET FRAC 19.8 % High 0.8-6.3 [facility] Comment on above: Order Comment: RIGHT BICEP Performed By: #### 3 0313 #### [facility] [address] [facility] [place] [address], [facility] MCH (RBC) [Entitic mass] 36.1 pg High 27.0-33.0 [facility] Comment on above: Order Comment: RIGHT BICEP Performed By: #### 3 0313 #### [facility] [address] [place] [address], [facility] MCHC (RBC) [Mass/Vol] 31.7 g/dL Low 32.0-35.0 [facility] Comment on above: Order Comment: RIGHT BICEP Performed By: #### 3 0313 #### [facility] [address] [place] [address], [facility] MCV (RBC) [Entitic vol] 113.7 fL High 82.0-98.0 [facility] Comment on above: Order Comment: RIGHT BICEP Performed By: #### 3 0313 #### [facility] [address] [facility] [place] [address], [facility] Nucleated RBC/100 WBC (Bld) [Ratio] 0 % Normal 0-0 [facility] Comment on above: Order Comment: RIGHT BICEP Performed By: #### 3 0313 #### [facility] [address] [facility] [place] [address], [facility] PLAT CNT 73 10*3/uL Low 150-400 [facility] Comment on above: Order Comment: RIGHT BICEP Performed By: #### 3 3 #### [facility] [address] [facility] [place] [address], [facility] RBC (Bld) [#/Vol] 2.19 10*6/uL Low 4.20-5.70 [facility] Comment on above: Order Comment: RIGHT BICEP Performed By: #### 3 0313 #### [facility] [address] [place] [address], [facility] RDW ---- Normal 11.5-15.0 [facility] Comment on above: Order Comment: RIGHT BICEP Performed By: #### 3 0313 #### [facility] [address] [place] [address], [facility] WBC (Bld) [#/Vol] 11.57 10*3/uL High 4.00-10.60 [facility] Comment on above: Order Comment: RIGHT BICEP Performed By: #### 3 0313 #### [facility] [address] [place] [address], [facility] MAGNESIUM BLOODon 11-19-2021 Magnesium [Mass/Vol] 2.0 mg/dL Normal 1.9-2.7 [facility] Comment on above: Order Comment: Evalu ate for Cardiomegaly Performed By: #### 1 0070, 10449, 04901 ####[facility] [place] [address], [facility] PHOSPHORUS BLOODon Phosphate [Mass/Vol] 3.3 mg/dL Normal 2.5-5.0 [facility] Comment on above: Order Comment: Evalu ate for Cardiomegaly Performed By: #### 1 0070, 62515, 96908 ####[facility] [facility] [place] [address], [facility] POC GLUCOSE LABon 11-19-2021 Glucose [Mass/Vol] 174 mg/dL High 70-100 [facility] Comment on above: Performed By: #### 3 4 #### [facility] [address] [place] [address], [facility] Glucose [Mass/Vol] 183 mg/dL High 70-100 The [facility] Comment on above: Performed By: #### 3 2043 #### [facility] [address] [facility] [place] [address], [facility] Glucose [Mass/Vol] 161 mg/dL High 70-100 [facility] Comment on above: Performed By: #### 3 2043 #### [facility] [address] [place] [address], [facility] TROPONIN-Ion 11-19-2021 Troponin I.cardiac [Mass/Vol] 2.17 ng/mL Critically high 0.00-0.04 The [facility] Comment on above: Order Comment: Evalu ate for Cardiomegaly Result Comment: M-LA EVIOUS CRITICAL RESULT REFERENCE RANGES: 0.00 - 0.04 ng/ml NORMAL 0.05 - 0.50 ng/ml INDETERMINATE > 0.50 ng/ml CONSISTENT WITH AN M.I. Performed By: #### 3 5200 ####[facility] UFH HEPARIN ASSAYon 11-20-19 UNFRACTIONATED HEPARIN 0.15 IU/mL Critically low 0.30-0.70 The [facility] Comment on above: Result Comment: RESU LTS CHECKED AND CALLED. ACCURATELY READ BACK BY GALA SEN RN AT 2055 Rivaroxaban and Apixaban will interfere with the anti Xa assay used to monitor UFH and LMWH. Performed By: #### 3 0477 #### [facility] [address] UNFRACTIONATED HEPARIN <0.10 Critically low 0.30-0.70 [facility] Comment on above: Result Comment: RESU LTS CHECKED AND CALLED. ACCURATELY READ BACK BY TIFF ROSSI RN AT 1316 Rivaroxaban and Apixaban will interfere with the anti Xa assay used to monitor UFH and LMWH. Performed By: #### 5 0103 #### [facility] [address] *BLOOD CULTUREon 11-18-2021 *BLOOD CULTURE Clinical Report: (D) Specimen: BLOOD CULTURE Collected: 11/18/2021 04:44 Status: Final Last Updated: 11/23/2021 08:16 (1) RIGHT BICEP CULT RES (Final) No Growth Day [address] [facility] Comment on above: Order Comment: RIGHT BICEP Performed By: #### 3 0313 #### [facility] [address] *BLOOD CULTURE Clinical Report: (D) Specimen: BLOOD CULTURE Collected: 11/18/2021 04:44 Status: Final Last Updated: 11/23/2021 08:16 (1) LEFT AC CULT RES (Final) No Growth Day [address] [facility] Comment on above: Order Comment: RIGHT BICEP Performed By: #### 3 0313 #### [facility] [address] *SPUTUM CULTUREon 11-18-2021 *SPUTUM CULTURE Clinical [...] Respiratory Lindy Moderate Growth ISOLATE: Pseudomonas aeruginosa - SHAHEEN (mcg/ml) AZTREONAM (AZM) 8 Susceptible CEFEPIME (FEP) 4 Susceptible CIPROFLOXACIN (CIP) 0.5 Susceptible GENTAMICIN (GM) <=2 Susceptible MEROPENEM (MEM) <=0.5 Susceptible PIP/TAZO (TZP) 8/4 Susceptible TOBRAMYCIN (TOB) <=2 Susceptible Normal [facility] Comment on above: Order Comment: RIGHT BICEP Performed By: #### 3 0313 #### [facility] [address] [facility]. [address] APTTon 11-18-2021 aPTT Coag (Bld) [Time] 27.5 s Normal 25.0-35.[address] [facility] Comment on above: Order Comment: No: D [...] PURPOSE. Performed By: #### 5 0103 #### [facility] [address] [facility]. [address] aPTT Coag (Bld) [Time] 25.6 s Normal 25.0-35.0 [facility] Comment on above: Result Comment: ALL RESULTS [...] PURPOSE. Performed By: #### 3 0477 #### [facility] [address] [place] [address], [facility] BASIC METABOLIC PANELon 04-2 Calcium [Mass/Vol] 8.5 mg/dL Low 8.6-10.3 [facility] Comment on above: Order Comment: No: D o not add to previous draw Performed By: #### 8 6001 #### [facility] [address] [place] [address], [facility] Chloride [Moles/Vol] 100 mmol/L Normal 98-107 [facility] Comment on above: Order Comment: No: D o not add to previous draw Performed By: #### 8 6001 #### [facility] [address] [place] [address], [facility] CO2 [Moles/Vol] 26 mmol/L Normal 21-31 [facility] Comment on above: Order Comment: No: D o not add to previous draw Performed By: #### 8 6001 #### [facility] [address] [place] [address], [facility] Creatinine [Mass/Vol] 2.27 mg/dL High 0.70-1.30 [facility] Comment on above: Order Comment: No: D o not add to previous draw Performed By: #### 8 6001 #### [facility] [address] [place] [address], [facility] eGFR- 34 ml/min/1.73sq m Abnormal >60 [facility] Comment on above: Order Comment: No: D o not add to previous draw Result Comment: Calc ulation may not be valid for patients over 70 years Performed By: #### 8 6001 #### [facility] [address] eGFR- non- 28 ml/min/1.73sq m Abnormal >60 [facility] Comment on above: Order Comment: No: D o not add to previous draw Result Comment: Calc ulation may not be valid for patients over 70 years Performed By: #### 8 6001 #### [facility] [address] [place] [address], [facility] Glucose [Mass/Vol] 162 mg/dL High 70-100 [facility] Comment on above: Order Comment: No: D o not add to previous draw Performed By: #### 8 6001 #### [facility] [address] [place] [address], [facility] Potassium [Moles/Vol] 4.1 mmol/L Normal 3.5-5.1 [facility] Comment on above: Order Comment: No: D o not add to previous draw Performed By: #### 8 6001 #### [facility] [address] [place] [address], [facility] Sodium [Moles/Vol] 140 mmol/L Normal 136-145 [facility] Comment on above: Order Comment: No: D o not add to previous draw Performed By: #### 8 6001 #### [facility] [address] [facility] [place] [address], [facility] Urea nitrogen [Mass/Vol] 38 mg/dL High 7-25 [facility] Comment on above: Order Comment: No: D o not add to previous draw Performed By: #### 8 6001 #### [facility] [address] [place] [address], [facility] CBC W/DIFFon 11-18-2021 ABS IMM GRANS 0.1 10*3/uL Normal 0.0-0.2 [facility] Comment on above: Order Comment: No: D o not add to previous draw Performed By: #### 5 0103 #### [facility] [address] [place] [address], [facility] ABS NEUTROPHILS 8.1 10*3/uL High 1.6-7.6 [facility] Comment on above: Order Comment: No: D o not add to previous draw Performed By: #### 5 0103 #### [facility] [address] [place] [address], [facility] ANISO Moderate Normal [facility] Comment on above: Order Comment: No: D o not add to previous draw Performed By: #### 5 0103 #### [facility] [address] [place] [address], [facility] Basophils (Bld) [#/Vol] 0.0 10*3/uL Normal 0.0-0.2 [facility] Comment on above: Order Comment: No: D o not add to previous draw Performed By: #### 5 0103 #### [facility] [address] [place] [address], [facility] Basophils/100 WBC (Bld) 0.2 % Normal 0.0-1.0 [facility] Comment on above: Order Comment: No: D o not add to previous draw Performed By: #### 5 0103 #### [facility] [address] [place] [address], [facility] Eosinophils (Bld) [#/Vol] 0.0 10*3/uL Normal 0.0-0.5 [facility] Comment on above: Order Comment: No: D o not add to previous draw Performed By: #### 5 0103 #### [facility] [address] [place] [address], [facility] Eosinophils/100 WBC (Bld) 0.0 % Normal 0.0-6.0 [facility] Comment on above: Order Comment: No: D o not add to previous draw Performed By: #### 5 0103 #### [facility] [address] [place] [address], [place] Hematocrit (Bld) [Volume fraction] 22.5 % Low 39.0-50.0 [facility] Comment on above: Order Comment: No: D o not add to previous draw Performed By: #### 5 0103 #### [facility] [address] [place] [address], [facility] Hemoglobin (Bld) [Mass/Vol] 7.3 g/dL Low 13.0-17.0 [facility] Comment on above: Order Comment: No: D o not add to previous draw Performed By: #### 5 0103 #### [facility] [address] [place] [facility] [place] [address], [facility] IMM PLATELET FRAC 19.9 % High 0.8-6.3 The [facility] Comment on above: Order Comment: No: D o not add to previous draw Performed By: #### 5 0103 #### [facility] [address] [place] [address], [facility] IMMATURE GRANS 0.8 % Normal 0.0-1.0 The [facility] Comment on above: Order Comment: No: D o not add to previous draw Performed By: #### 5 0103 #### [facility] [address] [facility] [place] [address], [facility] Lymphocytes (Bld) [#/Vol] 0.6 10*3/uL Low 1.2-4.0 The [facility] Comment on above: Order Comment: No: D o not add to previous draw Performed By: #### 5 0103 #### [facility] [address] [facility] [place] [address], [facility] Lymphocytes/100 WBC (Bld) 5.3 % Low 20.0-45.0 The [facility] Comment on above: Order Comment: No: D o not add to previous draw Performed By: #### 5 0103 #### [facility] [address] [facility] [place] [address], [facility] MACRO Slight Normal The [facility] Comment on above: Order Comment: No: D o not add to previous draw Performed By: #### 5 0103 #### [facility] [address] [place] [address], [facility] MCH (RBC) [Entitic mass] 35.4 pg High 27.0-33.0 The [facility] Comment on above: Order Comment: No: D o not add to previous draw Performed By: #### 5 0103 #### [facility] [address] [place] [id number], [facility] MCHC (RBC) [Mass/Vol] 32.4 g/dL Normal 32.0-35.0 The [facility] Comment on above: Order Comment: No: D o not add to previous draw Performed By: #### 5 0103 #### [facility] [address] [place] [address], [facility] MCV (RBC) [Entitic vol] 109.2 fL High 82.0-98.0 The [facility] Comment on above: Order Comment: No: D o not add to previous draw Performed By: #### 5 0103 #### [facility] [address] [place] [address], [facility] Monocytes (Bld) [#/Vol] 2.3 10*3/uL High 0.1-1.0 The [facility] Comment on above: Order Comment: No: D o not add to previous draw Performed By: #### 5 3 #### [facility] [address] [facility] [place] [address], [facility] MONOS 20.6 % High 5.0-12.0 The [facility] Comment on above: Order Comment: No: D o not add to previous draw Performed By: #### 5 0103 #### [facility] [address] [place] [address], [facility] Neutrophils/100 WBC (Bld) 73.1 % High 40.0-72.0 The [facility] Comment on above: Order Comment: No: D o not add to previous draw Performed By: #### 5 3 #### [facility] [address] Nucleated RBC/100 WBC (Bld) [Ratio] 0 % Normal 0-0 The [facility] Comment on above: Order Comment: No: D o not add to previous draw Performed By: #### 5 0103 #### [facility] [address] [place] [address], [facility] OTHER 1 2 red cell populations Normal Th e [facility] Comment on above: Order Comment: No: D o not add to previous draw Performed By: #### 5 0103 #### [facility] [address] [facility] [place] [address], [facility] PLAT CNT 53 10*3/uL Low 150-400 The [facility] Comment on above: Order Comment: No: D o not add to previous draw Performed By: #### 5 3 #### [facility] [address] [facility] [place] [place] [address], [facility] POIK Slight Normal The [facility] Comment on above: Order Comment: No: D o not add to previous draw Performed By: #### 5 0103 #### [facility] [address] [facility] [place] [address], [facility] POLY Slight Normal The [facility] Comment on above: Order Comment: No: D o not add to previous draw Performed By: #### 5 3 #### [facility] [address] [place] [address], [facility] RBC (Bld) [#/Vol] 2.06 10*6/uL Low 4.20-5.70 The [facility] Comment on above: Order Comment: No: D o not add to previous draw Performed By: #### 5 0103 #### [facility] [address] [place] [address], [facility] RDW ---- Normal 11.5-15.0 The [facility] Comment on above: Order Comment: No: D o not add to previous draw Performed By: #### 5 0103 #### [facility] [address] [place] [address], [facility] WBC (Bld) [#/Vol] 11.14 10*3/uL High 4.00-10.60 The [facility] Comment on above: Order Comment: No: D o not add to previous draw Performed By: #### 5 0103 #### [facility] [address] [place] [address], [facility] ABS IMM GRANS 0.1 10*3/uL Normal 0.0-0.2 The [facility] Comment on above: Performed By: #### 3 0313 #### [facility] [address] ABS NEUTROPHILS 8.0 10*3/uL High 1.6-7.6 The [facility] Comment on above: Performed By: #### 3 0313 #### [facility] [address] ANISO Moderate Normal The [facility] Comment on above: Performed By: #### 3 0313 #### [facility] [address] [place] [address], [facility] Basophils (Bld) [#/Vol] 0.0 10*3/uL Normal 0.0-0.2 The [facility] Comment on above: Performed By: #### 3 0313 #### [facility] [address] Basophils/100 WBC (Bld) 0.2 % Normal 0.0-1.0 The [facility] Comment on above: Performed By: #### 3 0313 #### [facility] [address] [place] [address], [facility] Eosinophils (Bld) [#/Vol] 0.0 10*3/uL Normal 0.0-0.5 The [facility] Comment on above: Performed By: #### 3 0313 #### [facility] [address] [facility] [place] [place] [address], [facility] Eosinophils/100 WBC (Bld) 0.1 % Normal 0.0-6.0 The [facility] Comment on above: Performed By: #### 3 0313 #### [facility] [address] [facility] Hematocrit (Bld) [Volume fraction] 21.7 % Low 39.0-50.0 The [facility] Comment on above: Performed By: #### 3 0313 #### [facility] [address] [facility]. [address] Hemoglobin (Bld) [Mass/Vol] 7.1 g/dL Low 13.0-17.0 The [facility] Comment on above: Performed By: #### 3 0313 #### [facility] [address] IMM PLATELET FRAC 19.7 % High 0.8-6.3 The [facility] Comment on above: Performed By: #### 3 0313 #### [facility] [address] [facility]. [address] IMMATURE GRANS 1.2 % High 0.0-1.0 The [facility] Comment on above: Performed By: #### 3 0313 #### [facility] [address] [facility] [place] [address], [facility] Lymphocytes (Bld) [#/Vol] 0.6 10*3/uL Low 1.2-4.0 The [facility] Comment on above: Performed By: #### 3 0313 #### [facility] [address] [facility] [place] [address], [facility] Lymphocytes/100 WBC (Bld) 5.0 % Low 20.0-45.0 The [facility] Comment on above: Performed By: #### 3 0313 #### [facility] [address] [facility] [place] [address], [facility] MACRO Slight Normal The [facility] Comment on above: Performed By: #### 3 0313 #### [facility] [address] [place] [address], [facility] MCH (RBC) [Entitic mass] 36.0 pg High 27.0-33.0 The [facility] Comment on above: Performed By: #### 3 0313 #### [facility] [address] [facility] [place] [address], [facility] MCHC (RBC) [Mass/Vol] 32.7 g/dL Normal 32.0-35.0 The [facility] Comment on above: Performed By: #### 3 0313 #### [facility] [address] [facility] [place] [address], [facility] MCV (RBC) [Entitic vol] 110.2 fL High 82.0-98.0 The [facility] Comment on above: Performed By: #### 3 0313 #### [facility] [address] [facility] [place] [address], [facility] Monocytes (Bld) [#/Vol] 2.3 10*3/uL High 0.1-1.0 The [facility] Comment on above: Performed By: #### 3 0313 #### [facility] [address] [facility] [place] [address], [facility] MONOS 20.6 % High 5.0-12.0 The [facility] Comment on above: Performed By: #### 3 0313 #### [facility] [address] [facility] [place] [address], [facility] Neutrophils/100 WBC (Bld) 72.9 % High 40.0-72.0 The [facility] Comment on above: Performed By: #### 3 0313 #### [facility] [address] [place] [address], [facility] Nucleated RBC/100 WBC (Bld) [Ratio] 0 % Normal 0-0 The [facility] Comment on above: Performed By: #### 3 3 #### [facility] [address] [place] [address], [facility] OTHER 1 2 cell populations Normal The [facility] Comment on above: Performed By: #### 3 3 #### [facility] [address] [place] [address], [facility] PLAT CNT 48 10*3/uL Low 150-400 The [facility] Comment on above: Performed By: #### 3 3 #### [facility] [address] [place] [address], [facility] POLY Slight Normal The [facility] Comment on above: Performed By: #### 3 3 #### [facility] [address] [place] [address], [facility] RBC (Bld) [#/Vol] 1.97 10*6/uL Low 4.20-5.70 The [facility] Comment on above: Performed By: #### 3 3 #### [facility] [address] [place] [address], [facility] RDW ---- Normal 11.5-15.0 The [facility] Comment on above: Performed By: #### 3 3 #### [facility] [address] [place] [address], [facility] WBC (Bld) [#/Vol] 11.02 10*3/uL High 4.00-10.60 The [facility] Comment on above: Performed By: #### 3 3 #### [facility] [address] [place] [address], [facility] COMP METABOLIC PANELon 11-18 Albumin [Mass/Vol] 3.8 g/dL Normal 3.5-5.7 The [facility] Comment on above: Order Comment: No: D o not add to previous draw Performed By: #### 8 6001 #### [facility] [address] [place] [address], [place] ALKALINE PHOSPH 42 IU/L Normal 34-104 The [facility] Comment on above: Order Comment: No: D o not add to previous draw Performed By: #### 8 6001 #### [facility] [address] [place] [address], [place] ALT [Catalytic activity/Vol] 48 U/L Normal 7-52 The [facility] Comment on above: Order Comment: No: D o not add to previous draw Performed By: #### 8 6001 #### [facility] [address] [place] [address], [place] AST [Catalytic activity/Vol] 47 U/L High 13-39 The [facility] Comment on above: Order Comment: No: D o not add to previous draw Performed By: #### 8 6001 #### [facility] [address] [place] [address], [place] Bilirubin [Mass/Vol] 1.4 mg/dL High 0.3-1.0 The [facility] Comment on above: Order Comment: No: D o not add to previous draw Performed By: #### 8 6001 #### [facility] [address] [place] [address], [place] Calcium [Mass/Vol] 8.7 mg/dL Normal 8.6-10.3 The [facility] Comment on above: Order Comment: No: D o not add to previous draw Performed By: #### 8 6001 #### [facility] [address] [place] [address], [place] Chloride [Moles/Vol] 103 mmol/L Normal 98-107 The [facility] Comment on above: Order Comment: No: D o not add to previous draw Performed By: #### 8 6001 #### [facility] [address] [place] [address], [place] CO2 [Moles/Vol] 27 mmol/L Normal 21-31 The [facility] Comment on above: Order Comment: No: D o not add to previous draw Performed By: #### 8 6001 #### [facility] [address] [place] [address], [place] Creatinine [Mass/Vol] 2.44 mg/dL High 0.70-1.30 The [facility] Comment on above: Order Comment: No: D o not add to previous draw Performed By: #### 8 6001 #### [facility] [address] [place] [address], [place] eGFR- 31 ml/min/1.73sq m Abnormal >60 The [facility] Comment on above: Order Comment: No: D o not add to previous draw Result Comment: Calc ulation may not be valid for patients over 70 years Performed By: #### 8 6001 #### [facility] [address] [place] [address], [facility] eGFR- non- 26 ml/min/1.73sq m Abnormal >60 The [facility] Comment on above: Order Comment: No: D o not add to previous draw Result Comment: Calc ulation may not be valid for patients over 70 years Performed By: #### 8 6001 #### [facility] [address] [place] [address], [place] Glucose [Mass/Vol] 128 mg/dL High 70-100 The [facility] Comment on above: Order Comment: No: D o not add to previous draw Performed By: #### 8 6001 #### [facility] [address] [place] [address], [place] Potassium [Moles/Vol] 4.0 mmol/L Normal 3.5-5.1 The [facility] Comment on above: Order Comment: No: D o not add to previous draw Performed By: #### 8 6001 #### [facility] [address] [place] [address], [place] Protein [Mass/Vol] 6.1 g/dL Normal 6.0-8.3 The [facility] Comment on above: Order Comment: No: D o not add to previous draw Performed By: #### 8 6001 #### [facility] [address] [place] [address], [place] Sodium [Moles/Vol] 139 mmol/L Normal 136-145 The [facility] Comment on above: Order Comment: No: D o not add to previous draw Performed By: #### 8 6001 #### [facility] [address] [place] [address], [place] Urea nitrogen [Mass/Vol] 34 mg/dL High 7-25 The [facility] Comment on above: Order Comment: No: D o not add to previous draw Performed By: #### 8 6001 #### [facility] [address] [place] [address], [place] MAGNESIUM BLOODon 11-18-2021 Magnesium [Mass/Vol] 2.2 mg/dL Normal 1.9-2.7 The [facility] Comment on above: Order Comment: No: D o not add to previous draw Performed By: #### 8 6001 #### [facility] [address] [place] [address], [place] PHOSPHORUS BLOODon 2 Phosphate [Mass/Vol] 3.5 mg/dL Normal 2.5-5.0 The [facility] Comment on above: Order Comment: No: D o not add to previous draw Performed By: #### 8 6001 #### [facility] [address] [place] [address], [place] POC GLUCOSE LABon 11-18-2021 Glucose [Mass/Vol] 171 mg/dL High 70-100 The [facility] Comment on above: Performed By: #### 3 2044 #### [facility] [address] [place] [address], [place] Glucose [Mass/Vol] 169 mg/dL High 70-100 The [facility] Comment on above: Performed By: #### 8 5499 #### [facility] [address] [facility]. [address] POC SARS COV2 ANTIGEN NEGATI VEon 11-18-2021 POC SARS COV2 ANTIGEN NEG Negative Normal NEGATIVE The [facility] Comment on above: Result Comment: Nega tive [...] antigen from SARS-CoV-2 in direct nasopharyngeal swab (SUPERINTENDENT) specimens from individuals who are suspected of [...] Certificate of Accreditation. Performed By: #### 3 2044 #### [facility] [address] [facility]. [address] PROCALCITONINon 11-18-2021 PROCALCITONIN 7.09 ng/mL Critically high 0.00-0.10 The [facility] Comment on above: Order Comment: No: D [...] RN Performed By: #### 5 0103 #### [facility] [address] PROTHROMBIN TIMEon 2 INR Coag (PPP) [Relative time] 1.31 {INR} High 0.91-1.16 The [facility] Comment on above: Order Comment: No: D o not add to previous draw Result Comment: [facility] P RECOMMENDED INR FOR WARFARIN THERAPY ------ [...] 1995;[id number]. Performed By: #### 5 0103 #### [facility] [address] [place] [address], [facility] PT Coag (PPP) [Time] 16.3 s High 12.3-14.8 The [facility] Comment on above: Order Comment: No: D o not add to previous draw Result Comment: ALL RESULTS MUST BE INTERPRETED WITH RESPECT TO BLOOD DRAWING ARTIFACT OR DILUTION ERROR OF ANTICOAGULANT AT THE TIME OF SAMPLING. Performed By: #### 5 0103 #### [facility] [address] [place] [address], [facility] INR Coag (PPP) [Relative time] 1.35 {INR} High 0.91-1.16 The [facility] Comment on above: Result Comment: ACCC P [...] 1995;[id number]. Performed By: #### 3 0477 #### [facility] [address] [place] [address], [facility] PT Coag (PPP) [Time] 16.7 s High 12.3-14.8 The [facility] Comment on above: Result Comment: ALL RESULTS MUST BE INTERPRETED WITH RESPECT TO BLOOD DRAWING ARTIFACT OR DILUTION ERROR OF ANTICOAGULANT AT THE TIME OF SAMPLING. Performed By: #### 3 0477 #### [facility] [address] [address], [facility] RBC'S 1 UNITon 11-18-2021 CROSSMATCH INTERP 1 COMP Normal The [facility] Comment on above: Performed By: #### 8 6001 ####[facility] PRODUCT CODE 1 [id number] Normal The [facility] Comment on above: Performed By: #### 8 6001 ####[facility] [facility] [place] [address], [facility] PRODUCT STATUS 1 PT Normal The [facility] Comment on above: Result Comment: Resu lt changed by IF on 11/18/2021 02:27. The previous value was XX. Result changed by IF on 11/19/2021 00:30. The previous value was IS. Performed By: #### 8 6001 ####[facility] [facility] [place] [address], [facility] UNIT ABO 1 A Normal The [facility] Comment on above: Performed By: #### 8 6001 ####[facility] [facility] [place] [address], [facility] UNIT ID 1 [id number] Normal The [facility] Comment on above: Performed By: #### 8 6001 ####[facility] [facility] [place] [address], [facility] UNIT RH 1 Positive Normal The [facility] Comment on above: Performed By: #### 8 6001 ####[facility] [place] [address], [facility] TROPONIN-Ion 11-18-2021 Troponin I.cardiac [Mass/Vol] 2.11 ng/mL Critically high 0.00-0.04 The [facility] Comment on above: Order Comment: No: D o not add to previous draw Result Comment: M-LA EVIOUS CRITICAL RESULT REFERENCE RANGES: 0.00 - 0.04 ng/ml NORMAL 0.05 - 0.50 ng/ml INDETERMINATE > 0.50 ng/ml CONSISTENT WITH AN M.I. Performed By: #### 8 6001 #### [facility] [address] [place] [address], [facility] Troponin I.cardiac [Mass/Vol] 1.88 ng/mL Critically high 0.00-0.04 The [facility] Comment on above: Order Comment: No: D o not add to previous draw Result Comment: M-LA EVIOUS CRITICAL RESULT REFERENCE RANGES: 0.00 - 0.04 ng/ml NORMAL 0.05 - 0.50 ng/ml INDETERMINATE > 0.50 ng/ml CONSISTENT WITH AN M.I. Performed By: #### 8 6001 #### [facility] [address] [place] [address], [facility] Troponin I.cardiac [Mass/Vol] 1.38 ng/mL Critically high 0.00-0.04 The [facility] Comment on above: Order Comment: No: D o not add to previous draw Result Comment: M-LA EVIOUS CRITICAL RESULT REFERENCE RANGES: 0.00 - 0.04 ng/ml NORMAL 0.05 - 0.50 ng/ml INDETERMINATE > 0.50 ng/ml CONSISTENT WITH AN M.I. Performed By: #### 3 5200 ####[facility] [place] [address], [facility] Troponin I.cardiac [Mass/Vol] 2.00 ng/mL Critically high 0.00-0.04 The [facility] Comment on above: Result Comment: M-LA EVIOUS CRITICAL RESULT REFERENCE RANGES: 0.00 - 0.04 ng/ml NORMAL 0.05 - 0.50 ng/ml INDETERMINATE > 0.50 ng/ml CONSISTENT WITH AN M.I. Performed By: #### 8 6001 #### [facility] [address] [place] [address], [facility] Troponin I.cardiac [Mass/Vol] 1.90 ng/mL Critically high 0.00-0.04 The [facility] Comment on above: Result Comment: M-LA EVIOUS CRITICAL RESULT REFERENCE RANGES: 0.00 - 0.04 ng/ml NORMAL 0.05 - 0.50 ng/ml INDETERMINATE > 0.50 ng/ml CONSISTENT WITH AN M.I. Performed By: #### 3 5200 ####[facility] [facility].[address] VENOUS BLOOD GASon 2 BASE EXCESS 4 mmol/L Normal The [facility] Comment on above: Performed By: #### 5 0103 #### [facility] [address] [facility]. [address] DELIVERY SYSTEMS V60 Normal The [facility] Comment on above: Performed By: #### 5 0103 #### [facility] [address] [place], [place] [address] [place] [address] HCO3 (Bld) [Moles/Vol] 29 mmol/L Normal The [facility] Comment on above: Performed By: #### 5 0103 #### [facility] [address] [facility] [place] [address], [facility] MODALITY BIPAP 14/6 Normal The [facility] Comment on above: Performed By: #### 5 0103 #### [facility] [address] [facility] [place] [address], [facility] Oxygen (Bld) [Partial pressure] 30 mm[Hg] Low 35-45 [facility] Comment on above: Performed By: #### 5 0103 #### [facility] [address] [place] [address], [facility] Oxygen saturation in Blood 37.1 % Low 65.0-75.0 [facility] Comment on above: Performed By: #### 5 0103 #### [facility] [address] [place] [address], [facility] PCO2 44 mmHg Normal [facility] Comment on above: Performed By: #### 5 0103 #### [facility] [address] [place] [address], [facility] pH (Bld) 7.43 [pH] High 7.31-7.41 [facility] Comment on above: Performed By: #### 5 0103 #### [facility] [address] [place] [address], [facility] APTTon 11-17-2021 aPTT Coag (Bld) [Time] 30.1 s Normal 25.0-35.0 [facility] Comment on above: Result Comment: ALL RESULTS [...] PURPOSE. Performed By: #### 5 0103 #### [facility] [address] [place] [address], [facility] BASIC METABOLIC PANELon 10-27 Calcium [Mass/Vol] 8.6 mg/dL Normal 8.6-10.3 [facility] Comment on above: Performed By: #### 1 0070, [id number], 02335 ####[facility] [facility] [place] [address], [facility] Chloride [Moles/Vol] 99 mmol/L Normal 98-107 [facility] Comment on above: Performed By: #### 1 0070, 60783, 42485 ####[facility] [facility] [place] [address], [facility] CO2 [Moles/Vol] 26 mmol/L Normal 21-31 [facility] Comment on above: Performed By: #### 1 0070, [id number], 86063 ####[facility] [facility] [place] [address], [place] Creatinine [Mass/Vol] 2.68 mg/dL High 0.70-1.30 [facility] Comment on above: Performed By: #### 1 0, , 92513 ####[facility] [place] [address], [place] eGFR- 28 ml/min/1.73sq m Abnormal >60 [facility] Comment on above: Result Comment: Calc ulation may not be valid for patients over 70 years Performed By: #### 1 0, , 18009 ####[facility] [place] [address], [place] eGFR- non- 23 ml/min/1.73sq m Abnormal >60 [facility] Comment on above: Result Comment: Calc ulation may not be valid for patients over 70 years Performed By: #### 1 0, , 60299 ####[facility] [place] [address], [place] Glucose [Mass/Vol] 185 mg/dL High 70-100 [facility] Comment on above: Performed By: #### 1 0, , 63815 ####[facility] [place] [address], [place] Potassium [Moles/Vol] 4.0 mmol/L Normal 3.5-5.1 [facility] Comment on above: Performed By: #### 1 69, , 92945 ####[facility] [place] [address], [place] Sodium [Moles/Vol] 140 mmol/L Normal 136-145 [facility] Comment on above: Performed By: #### 1 69, , 48507 ####[facility] [place] [address], [place] Urea nitrogen [Mass/Vol] 34 mg/dL High 7-25 [facility] Comment on above: Performed By: #### 1 0070, 41843, 31881 ####[facility] BNP EDon 11-17-2021 Natriuretic peptide B (Bld) [Mass/Vol] 1081 pg/mL High 0-100 [facility] Comment on above: Result Comment: Give n the appropriate clinical setting a BNP result of >100 pg/mL indicates congestive heart failure. Performed By: #### 8 6001 #### [facility] [address] [place] [address], [facility] CBC W/DIFFon 11-17-2021 ABS IMM GRANS 0.2 10*3/uL Normal 0.0-0.2 [facility] Comment on above: Performed By: #### 3 0313 #### [facility] [address] [place] [address], [facility] ABS NEUTROPHILS 9.3 10*3/uL High 1.6-7.6 [facility] Comment on above: Performed By: #### 3 0313 #### [facility] [address] [place] [address], [facility] ANISO Moderate Normal [facility] Comment on above: Performed By: #### 3 0313 #### [facility] [address] [place] [address], [facility] Basophils (Bld) [#/Vol] 0.0 10*3/uL Normal 0.0-0.2 [facility] Comment on above: Performed By: #### 3 0313 #### [facility] [address] [place] [address], [facility] Basophils/100 WBC (Bld) 0.2 % Normal 0.0-1.0 [facility] Comment on above: Performed By: #### 3 0313 #### [facility] [address] [place] [address], [facility] Eosinophils (Bld) [#/Vol] 0.0 10*3/uL Normal 0.0-0.5 [facility] Comment on above: Performed By: #### 3 0313 #### [facility] [address] [facility] [place] [address], [facility] Eosinophils/100 WBC (Bld) 0.0 % Normal 0.0-6.0 [facility] Comment on above: Performed By: #### 3 0313 #### [facility] [address] [facility] [place] [address], [facility] Erythrocyte distribution width (RBC) [Ratio] 21.6 % High 11.5-15.0 [facility] Comment on above: Performed By: #### 3 0313 #### [facility] [address] [place] [address], [facility] Hematocrit (Bld) [Volume fraction] 20.1 % Low 39.0-50.0 [facility] Comment on above: Performed By: #### 3 0313 #### [facility] [address] [facility] [place] [place] [address], [facility] Hemoglobin (Bld) [Mass/Vol] 6.5 g/dL Low 13.0-17.0 [facility] Comment on above: Performed By: #### 3 0313 #### [facility] [address] [facility] [place] [address], [facility] HYPO Moderate Normal [facility] Comment on above: Performed By: #### 3 0313 #### [facility] [address] [facility] [place] [place] [address], [facility] IMM PLATELET FRAC 20.4 % High 0.8-6.3 [facility] Comment on above: Performed By: #### 3 0313 #### [facility] [address] [place] [id number], [facility] IMMATURE GRANS 1.3 % High 0.0-1.0 [facility] Comment on above: Performed By: #### 3 3 #### [facility] [address] Lymphocytes (Bld) [#/Vol] 0.6 10*3/uL Low 1.2-4.0 [facility] Comment on above: Performed By: #### 3 3 #### [facility] [address] Lymphocytes/100 WBC (Bld) 4.7 % Low 20.0-45.0 [facility] Comment on above: Performed By: #### 3 3 #### [facility] [address] MACRO Moderate Normal [facility] Comment on above: Performed By: #### 3 3 #### [facility] [address] MCH (RBC) [Entitic mass] 37.1 pg High 27.0-33.0 [facility] Comment on above: Performed By: #### 3 3 #### [facility] [address] MCHC (RBC) [Mass/Vol] 32.3 g/dL Normal 32.0-35.0 [facility] Comment on above: Performed By: #### 3 3 #### [facility] [address] MCV (RBC) [Entitic vol] 114.9 fL High 82.0-98.0 [facility] Comment on above: Performed By: #### 3 3 #### [facility] [address] Monocytes (Bld) [#/Vol] 2.5 10*3/uL High 0.1-1.0 [facility] Comment on above: Performed By: #### 3 3 #### [facility] [address] [place] [address], [place] MONOS 19.8 % High 5.0-12.0 [facility] Comment on above: Performed By: #### 3 0313 #### [facility] [address] [place] [address], [place] Neutrophils/100 WBC (Bld) 74.0 % High 40.0-72.0 [facility] Comment on above: Performed By: #### 3 0313 #### [facility] [address] [place] [address], [facility] Nucleated RBC/100 WBC (Bld) [Ratio] 0 % Normal 0-0 [facility] Comment on above: Performed By: #### 3 0313 #### [facility] [address] [place] [address], [facility] OVALOCYTES Moderate Normal [facility] Comment on above: Performed By: #### 3 0313 #### [facility] [address] [facility] [place] [address], [place] PLAT CNT 52 10*3/uL Low 150-400 [facility] Comment on above: Performed By: #### 3 0313 #### [facility] [address] [place] [address], [place] POIK Moderate Normal [facility] Comment on above: Performed By: #### 3 0313 #### [facility] [address] [place] [address], [place] RBC (Bld) [#/Vol] 1.75 10*6/uL Low 4.20-5.70 [facility] Comment on above: Performed By: #### 3 0313 #### [facility] [address] [place] [address], [place] WBC (Bld) [#/Vol] 12.59 10*3/uL High 4.00-10.60 [facility] Comment on above: Performed By: #### 3 0313 #### [facility] [address] [place] [address], [facility] MAGNESIUM BLOODon 11-17-2021 Magnesium [Mass/Vol] 1.7 mg/dL Low 1.9-2.7 [facility] Comment on above: Performed By: #### 1 0070, 02072, 94311 ####[facility] [place] [address], [facility] PORTABLE CHEST 1 VIEWon 10-27 PORTABLE CHEST 1 VIEW [facility] Department of Radiology [address] [place] [address] ===== Patient Name: SANDIP BROUSSARD : 1940 Sex: M Age: Race: White Pt. Location: [facility] Patient Status: E Ordered Date: 11/17/2021 7:20:00 PM Completed Date: 11/17/2021 07:37 PM Requesting Provider: ДМИТРИЙ MEEKS Attending Provider: TRISTON SANDOVAL Report Copy To: Signs & Symptoms: O2 Desaturation History: Comments: Evaluate for Cardiomegaly Exam: PORTABLE CHEST 1 VIEW ===== PORTABLE CHEST 1 VIEW 11/17/2021 7:37 PM [...] recommended. Electronically signed: Jasper Zelaya. Transcribed by: [email or web address], User Resident: Electronically Signed by: JASPER ZELAYA @ 11/17/2021 07:43 PM Normal [facility] Comment on above: Order Comment: Evalu ate for Cardiomegaly PROTHROMBIN TIMEon 2 INR Coag (PPP) [Relative time] 1.42 {INR} High 0.91-1.16 [facility] Comment on above: Result Comment: ACCC P [...] 1995;[id number]. Performed By: #### 5 0103 #### [facility] [address] [facility] [place] [address], [facility] PT Coag (PPP) [Time] 17.3 s High 12.3-14.8 [facility] Comment on above: Result Comment: ALL RESULTS MUST BE INTERPRETED WITH RESPECT TO BLOOD DRAWING ARTIFACT OR DILUTION ERROR OF ANTICOAGULANT AT THE TIME OF SAMPLING. Performed By: #### 5 0103 #### [facility] [address] [place] [address], [facility] RBC'S 1 UNITon 11-17-2021 CROSSMATCH INTERP 1 COMP Normal [facility] Comment on above: Performed By: #### 5 0103 #### [facility] [address] [place] [address], [facility] PRODUCT CODE 1 E0336 Normal [facility] Comment on above: Performed By: #### 5 0103 #### [facility] [address] [facility] [place] [address], [facility] PRODUCT STATUS 1 PT Normal [facility] Comment on above: Result Comment: Resu lt changed by IF on 11/17/2021 20:41. The previous value was XM. Result changed by IF on 11/18/2021 00:30. The previous value was IS. Performed By: #### 5 0103 #### [facility] [address] [facility] [place] [address], [facility] UNIT ABO 1 A Normal [facility] Comment on above: Performed By: #### 5 0103 #### [facility] [address] [facility] [place] [address], [facility] UNIT ID 1 [id number] Normal [facility] Comment on above: Performed By: #### 5 0103 #### [facility] [address] [facility] [place] [address], [facility] UNIT RH 1 Positive Normal [facility] Comment on above: Performed By: #### 5 0103 #### [facility] [address] [place] [address], [facility] TROPONIN-Ion 11-17-2021 Troponin I.cardiac [Mass/Vol] 1.79 ng/mL Critically high 0.00-0.04 [facility] Comment on above: Result Comment: M-TR OPONIN INITIAL CRITICAL HIGH; RESPUN AND RETESTED M-CRITICAL RESULT(S) REVIEWED, CALLED TO AND READ BACK BY Judy Pablo RN at 2130. REFERENCE RANGES: 0.00 - 0.04 ng/ml NORMAL 0.05 - 0.50 ng/ml INDETERMINATE > 0.50 ng/ml CONSISTENT WITH AN M.I. Performed By: #### 1 0070, 00300, 02640 ####[facility] [facility].[address] TYPE AND SCREENon 11-17-2021 ABO INTERPRETATION A Normal [facility] Comment on above: Performed By: #### 6 2586 ####[facility] [facility] [place] [address], [facility] RH INTERPRETATION Positive Normal [facility] Comment on above: Performed By: #### 6 2586 ####[facility] [facility] [place] [address], [facility] CBC W Auto Differential pane l (Bld)on 11-02-2021 Abs Baso 0.00 k/uL <0.11 k/uL [facility] Abs Meeker 1.26 k/uL High <0.87 k/uL [facility] Absolute nRBC <0.01 <0.01 k/uL [facility] Anisocytosis Ql (Bld) Present [facility] Basophils/100 WBC (Bld) 0.0 % [facility] Differential cell count method Nom (Bld) Manual [facility] Eosinophils (Bld) [#/Vol] 0.00 10*3/uL <0.46 k/uL [facility] Eosinophils/100 WBC (Bld) 0.0 % [facility] Erythrocyte distribution width (RBC) [Ratio] 24.7 % High 11.5 - 15.0 % [facility] Hematocrit (Bld) [Volume fraction] 25.2 % Low 39.0 - 51.0 % [facility] Hemoglobin (Bld) [Mass/Vol] 7.9 g/dL Low 13.0 - 17.0 g/dL [facility] Lymphocytes (Bld) [#/Vol] 1.33 10*3/uL 1.00 - 4.00 k/uL [facility] Lymphocytes/100 WBC (Bld) 19.0 % [facility] MCH (RBC) [Entitic mass] 36.2 pg High 26.0 - 34.0 pg [facility] MCHC (RBC) [Mass/Vol] 31.3 g/dL 30.5 - 36.0 g/dL [facility] MCV (RBC) [Entitic vol] 115.6 fL High 80.0 - 100.0 fL [facility] Monocytes/100 WBC (Bld) 18.0 % [facility] Neutrophils (Bld) [#/Vol] 4.42 10*3/uL 1.45 - 7.50 k/uL [facility] Neutrophils/100 WBC (Bld) 63.0 % [facility] Nucleated RBC/100 WBC (Bld) [Ratio] 0.0 /100 WBC [facility] Ovalocytes LM Ql (Bld) Few [facility] Platelet Estimate Adequate [facility] Platelet mean volume (Bld) [Entitic vol] 13.8 fL High 9.0 - 12.7 fL [facility] Platelets (Bld) [#/Vol] 226 10*3/uL 150 - 400 k/uL [facility] Polychromasia LM Ql (Bld) Slight [facility] RBC (Bld) [#/Vol] 2.18 10*6/uL Low 4.20 - 6.00 m/uL [facility] Red Cell Morph Reviewed [facility] WBC (Bld) [#/Vol] 7.02 10*3/uL 3.70 - 11.00 k/u L [facility] Comprehensive metabolic 2000 panelon 11-01-2021 Albumin [Mass/Vol] 4.2 g/dL 3.9 - 4.9 g/dL Cl [facility] ALP [Catalytic activity/Vol] 51 U/L 38 - 113 U/L [facility] ALT [Catalytic activity/Vol] 22 U/L 10 - 54 U/L [facility] Anion gap [Moles/Vol] 13 mmol/L 9 - 18 mmol/L [facility] AST [Catalytic activity/Vol] 13 U/L Low 14 - 40 U/L [facility] Bilirubin [Mass/Vol] 0.5 mg/dL 0.2 - 1.3 mg/dL [facility] Calcium [Mass/Vol] 9.5 mg/dL 8.5 - 10.2 mg/dL [facility] Chloride [Moles/Vol] 104 mmol/L 97 - 105 mmol/L [facility] CO2 [Moles/Vol] 24 mmol/L 22 - 30 mmol/L [facility] Creatinine [Mass/Vol] 1.98 mg/dL High 0.73 - 1.22 mg/dL [facility] Estimated Glomerular Filtration Rate 33 mL/min/1.73m Low >=60 mL/min/1.73m [facility] Glucose [Mass/Vol] 154 mg/dL High 74 - 99 mg/dL [facility] Potassium [Moles/Vol] 3.6 mmol/L Low 3.7 - 5.1 mmol/L [facility] Protein [Mass/Vol] 6.3 g/dL 6.3 - 8.0 g/dL Cl [facility] Sodium [Moles/Vol] 141 mmol/L 136 - 144 mmol/L [facility] Urea nitrogen [Mass/Vol] 41 mg/dL High 9 - 24 mg/dL [facility] LD LACTATE DEHYDROon 022 LDH [Catalytic activity/Vol] 263 U/L High 135 - 225 U/L [facility] Audiology Office/Clinic Note on 06-23-2018 Audiology Office/Clinic Note Patient seen for hearing aid evaluation, accompanied by his . Hearing test results were reviewed and appropriate hearing aid styles and levels of technology were discussed. Patient expressed interest in two [employer]ero B50 or 70-SP BTE hearing aids [facility] with custom earmolds. Bilateral earmold impressions were [...] billed at time of dispense.Electronically signed by Evette Stiles 06/23/18 13:47 EST Normal [facility] Audiology Office/Clinic Note on 06-11-2018 Audiology Office/Clinic [...] aid evaluation if interested in discussing amplification options.RECOMMENDATIONS :1. Follow up with Dr. Andrew regarding today?s test results.2. Following any medical management, return for updated hearing evaluation.3. Return for hearing aid evaluation if interested in discussing amplification options.Electronically signed by Jaziel SmithEvette Reyna 06/11/18 09:57 EST Normal [facility] Otolaryngology Office/Clinic Noteon 06-11-2018 Otolaryngology Office/Clinic Note [...] Ongoing Hypertension Prediabetic nonclinical diabetes Historical Heart attackProcedure/Surgica l History Stent placement.Medications amLODIPine 5 mg oral [...] No qualifying data available. No qualifying data available.Electronicall y signed by Mylene Andrew MD 06/11/18 11:02 EST Normal [facility] Otolaryngology Consultationo n 05-28-2018 Otolaryngology Consultation Chief [...] Ongoing Hypertension Prediabetic nonclinical diabetes Historical Heart attackProcedure/Surgica l History Stent placement.Medications Home amLODIPine 5 mg [...] Stroke: Father.Lab Results Microbiology No qualifying data available.Electronicall y signed by Mylene Andrew MD 05/28/18 11:44 EDTThe right ear has some cerumen and the TM is suspicious for fluid. I'll be scheduling him for a follow-up in 2 weeks to reevaluate his nose and we'll get a hearing test before his visit.Electronically signed by Mylene Andrew MD 05/28/18 11:46 EDT Normal [facility] Vital Signs Date Time Vital Sign Value Performing Clinician Facility 03-11-2023 13:00-0400 Blood Pressure Location [facility] 03-11-2023 13:00-0400 Body temperature 97.7 [degF] d [facility] 03-11-2023 13:00-0400 Diastolic blood pressure 64 mm[Hg] d [facility] 03-11-2023 13:00-0400 Heart rate 59 /min d [facility] 03-11-2023 13:00-0400 Mean blood pressure 86 mm[Hg] d [facility] 03-11-2023 13:00-0400 Respiratory rate 18 /min d [facility] 03-11-2023 13:00-0400 SaO2% (BldA) [Mass fraction] 100 % d [facility] 03-11-2023 13:00-0400 Systolic blood pressure 129 mm[Hg] d [facility] 11-20-2022 15:16-0400 Body height 166.1 cm Asher Hummel MD Work Phone: [facility] 11-20-2022 15:16-0400 Body temperature 97.5 [degF] Asher Hummel MD Work Phone: [facility] 11-20-2022 15:16-0400 Body weight 95.44 kg Asher Hummel MD Work Phone: [facility] 11-20-2022 15:16-0400 Diastolic blood pressure 58 mm[Hg] Asher Hummel MD Work Phone: [facility] 11-20-2022 15:16-0400 Heart rate 59 /min Asher Hummel MD Work Phone: [facility] 11-20-2022 15:16-0400 Respiratory rate 18 /min Asher Hummel MD Work Phone: [facility] 11-20-2022 15:16-0400 SaO2% (BldA) [Mass fraction] 93 % Asher Hummel MD Work Phone: [facility] 11-20-2022 15:16-0400 Systolic blood pressure 98 mm[Hg] Asher Hummel MD Work Phone: [facility] 10-15-2022 14:14-0400 Body temperature 98.6 [degF] Elysia Esposito MD Work Phone: [facility] 10-15-2022 14:14-0400 Body weight 103.42 kg Elysia Esposito MD Work Phone: [facility] 10-15-2022 14:14-0400 Diastolic blood pressure 69 mm[Hg] Elysia Esposito MD Work Phone: [facility] 10-15-2022 14:14-0400 Heart rate 56 /min Elysia Esposito MD Work Phone: [facility] 10-15-2022 14:14-0400 Respiratory rate 19 /min Elysia Esposito MD Work Phone: [facility] 10-15-2022 14:14-0400 SaO2% (BldA) [Mass fraction] 100 % Elysia Esposito MD Work Phone: [facility] 10-15-2022 14:14-0400 Systolic blood pressure 129 mm[Hg] Elysia Esposito MD Work Phone: [facility] 09-18-2022 13:30-0500 Diastolic blood pressure 43 mm[Hg] Asher Hummel MD Work Phone: [facility] 09-18-2022 13:30-0500 Systolic blood pressure 126 mm[Hg] Asher Hummel MD Work Phone: [facility] 09-18-2022 13:28-0500 Body height 166.1 cm Asher Hummel MD Work Phone: [facility] 09-18-2022 13:28-0500 Body temperature 97.7 [degF] Asher Hummel MD Work Phone: [facility] 09-18-2022 13:28-0500 Body weight 100.25 kg Asher Hummel MD Work Phone: [facility] 09-18-2022 13:28-0500 Heart rate 71 /min Asher Hummel MD Work Phone: [facility] 09-18-2022 13:28-0500 Respiratory rate 18 /min Asher Hummel MD Work Phone: [facility] 09-18-2022 13:28-0500 SaO2% (BldA) [Mass fraction] 92 % Asher Hummel MD Work Phone: [facility] 08-28-2022 15:07-0500 Body height 166.1 cm Asher Hummel MD Work Phone: [facility] 08-28-2022 15:07-0500 Body temperature 97.3 [degF] Asher Hummel MD Work Phone: [facility] 08-28-2022 15:07-0500 Body weight 103.51 kg Asher Hummel MD Work Phone: [facility] 08-28-2022 15:07-0500 Diastolic blood pressure 62 mm[Hg] Asher Hummel MD Work Phone: [facility] 08-28-2022 15:07-0500 Heart rate 77 /min Asher Hummel MD Work Phone: [facility] 08-28-2022 15:07-0500 Respiratory rate 16 /min Asher Hummel MD Work Phone: [facility] 08-28-2022 15:07-0500 SaO2% (BldA) [Mass fraction] 92 % Asher Hummel MD Work Phone: [facility] 08-28-2022 15:07-0500 Systolic blood pressure 110 mm[Hg] Asher Hummel MD Work Phone: [facility] 08-21-2022 13:30-0500 Body height 166.1 cm Wilfred Martinez APRN.[employer] Work Phone: [facility] 08-21-2022 13:30-0500 Body temperature 97.59 [degF] Wilfred Martinez APRN.[employer] Work Phone: [facility] 08-21-2022 13:30-0500 Body weight 103.51 kg Wilfred Martinez APRN.[employer] Work Phone: [facility] 08-21-2022 13:30-0500 Diastolic blood pressure 37 mm[Hg] Wilfred Martinez APRN.[employer] Work Phone: [facility] 08-21-2022 13:30-0500 Heart rate 74 /min Wilfred Martinez APRN.[employer] Work Phone: [facility] 08-21-2022 13:30-0500 Respiratory rate 18 /min Wilfred Martinez APRN.[employer] Work Phone: [facility] 08-21-2022 13:30-0500 SaO2% (BldA) [Mass fraction] 92 % Wilfred Martinez APRN.[employer]AST[employer]DER Work Phone: [facility] 08-21-2022 13:30-0500 Systolic blood pressure 84 mm[Hg] Wilfred Martinez APRN.[employer]AST[employer] Work Phone: [facility] 08-14-2022 14:28-0500 Diastolic blood pressure 64 mm[Hg] Chair Roman Work Phone: [facility] 08-14-2022 14:28-0500 SaO2% (BldA) [Mass fraction] 97 % Chair [place] Work Phone: [facility] 08-14-2022 14:28-0500 Systolic blood pressure 102 mm[Hg] Chair Roman Work Phone: [facility] 08-14-2022 13:55-0500 Body height 166.1 cm Wilfred Martinez APRN.[employer] Work Phone: [facility] 08-14-2022 13:55-0500 Body temperature 97.3 [degF] Wilfred Martinez APRN.[employer] Work Phone: [facility] 08-14-2022 13:55-0500 Body weight 103.96 kg Wilfred Martinez APRN.[employer] Work Phone: [facility] 08-14-2022 13:55-0500 Diastolic blood pressure 41 mm[Hg] Wilfred Martinez APRN.[employer] Work Phone: [facility] 08-14-2022 13:55-0500 Heart rate 71 /min Wilfred Martinez APRN.[employer] Work Phone: [facility] 08-14-2022 13:55-0500 Respiratory rate 16 /min Wilfred Martinez APRN.[employer] Work Phone: [facility] 08-14-2022 13:55-0500 SaO2% (BldA) [Mass fraction] 90 % Wilfred Martinez APRN.[employer]DER Work Phone: [facility] 08-14-2022 13:55-0500 Systolic blood pressure 93 mm[Hg] Wilfred Martinez APRN.[employer]DER Work Phone: [facility] 08-07-2022 15:19-0500 Diastolic blood pressure 57 mm[Hg] Asher Hummel MD Work Phone: [facility] 08-07-2022 15:19-0500 Systolic blood pressure 112 mm[Hg] Asher Hummel MD Work Phone: [facility] 08-07-2022 15:14-0500 Body height 166.1 cm Asher Hummel MD Work Phone: [facility] 08-07-2022 15:14-0500 Body temperature 97.81 [degF] Asher Hummel MD Work Phone: [facility] 08-07-2022 15:14-0500 Body weight 102.97 kg Asher Hummel MD Work Phone: [facility] 08-07-2022 15:14-0500 Heart rate 71 /min Asher Hummel MD Work Phone: [facility] 08-07-2022 15:14-0500 Respiratory rate 16 /min Asher Hummel MD Work Phone: [facility] 08-07-2022 15:14-0500 SaO2% (BldA) [Mass fraction] 94 % Asher Hummel MD Work Phone: [facility] 07-30-2022 15:00-0500 Body height 166.1 cm Radha Harriser PA-C Work Phone: [facility] 07-30-2022 15:00-0500 Body temperature 97.9 [degF] Radha Harriser PA-C Work Phone: [facility] 07-30-2022 15:00-0500 Body weight 104.69 kg Radha Harriser PA-C Work Phone: [facility] 07-30-2022 15:00-0500 Diastolic blood pressure 52 mm[Hg] Radha Harriser PA-C Work Phone: [facility] 07-30-2022 15:00-0500 Heart rate 83 /min Radha Lori PA-C Work Phone: [facility] 07-30-2022 15:00-0500 Respiratory rate 18 /min Radha Lori PA-C Work Phone: [facility] 07-30-2022 15:00-0500 SaO2% (BldA) [Mass fraction] 97 % Radha Lori PA-C Work Phone: [facility] 07-30-2022 15:00-0500 Systolic blood pressure 97 mm[Hg] Radha Lori PA-C Work Phone: [facility] 07-23-2022 14:23-0500 Body height 166.1 cm Asher Hummel MD Work Phone: [facility] 07-23-2022 14:23-0500 Body temperature 97.81 [degF] Asher Hummel MD Work Phone: [facility] 07-23-2022 14:23-0500 Body weight 105.69 kg Asher Hummel MD Work Phone: [facility] 07-23-2022 14:23-0500 Diastolic blood pressure 58 mm[Hg] Asher Hummel MD Work Phone: [facility] 07-23-2022 14:23-0500 Heart rate 65 /min Asher Hummel MD Work Phone: [facility] 07-23-2022 14:23-0500 Respiratory rate 16 /min Asher uHmmel MD Work Phone: [facility] 07-23-2022 14:23-0500 SaO2% (BldA) [Mass fraction] 95 % Asher Hummel MD Work Phone: [facility] 07-23-2022 14:23-0500 Systolic blood pressure 103 mm[Hg] Asher Hummel MD Work Phone: [facility] 07-16-2022 13:59-0500 Body temperature 98.01 [degF] Elysia Esposito MD Work Phone: [facility] 07-16-2022 13:59-0500 Body weight 106.87 kg Elysia Esposito MD Work Phone: [facility] 07-16-2022 13:59-0500 Diastolic blood pressure 59 mm[Hg] Elysia Esposito MD Work Phone: [facility] 07-16-2022 13:59-0500 Heart rate 50 /min Elysia Esposito MD Work Phone: [facility] 07-16-2022 13:59-0500 Respiratory rate 18 /min Elysia Esposito MD Work Phone: [facility] 07-16-2022 13:59-0500 SaO2% (BldA) [Mass fraction] 96 % Elysia Esposito MD Work Phone: [facility] 07-16-2022 13:59-0500 Systolic blood pressure 107 mm[Hg] Elysia Esposito MD Work Phone: [facility] 07-15-2022 15:02-0500 Body height 166.1 cm Chair [place] Work Phone: [facility] 07-15-2022 15:02-0500 Body weight 106.2 kg Chair Roman Work Phone: [facility] 07-15-2022 14:22-0500 Body height 166.1 cm Asher Hummel MD Work Phone: [facility] 07-15-2022 14:22-0500 Body temperature 97.59 [degF] Asher Hummel MD Work Phone: [facility] 07-15-2022 14:22-0500 Body weight 106.23 kg Asher Hummel MD Work Phone: [facility] 07-15-2022 14:22-0500 Diastolic blood pressure 43 mm[Hg] Asher Hummel MD Work Phone: [facility] 07-15-2022 14:22-0500 Heart rate 56 /min Asher Hummel MD Work Phone: [facility] 07-15-2022 14:22-0500 Respiratory rate 16 /min Asher Hummel MD Work Phone: [facility] 07-15-2022 14:22-0500 SaO2% (BldA) [Mass fraction] 93 % Asher Hummel MD Work Phone: [facility] 07-15-2022 14:22-0500 Systolic blood pressure 103 mm[Hg] Asher Hummel MD Work Phone: [facility] 07-09-2022 14:11-0500 Body temperature 97.2 [degF] Chair [place] Work Phone: [facility] 07-09-2022 14:11-0500 Diastolic blood pressure 71 mm[Hg] Chair [place] Work Phone: [facility] 07-09-2022 14:11-0500 Heart rate 68 /min Chair [place] Work Phone: [facility] 07-09-2022 14:11-0500 Respiratory rate 16 /min Chair [place] Work Phone: [facility] 07-09-2022 14:11-0500 Systolic blood pressure 107 mm[Hg] Chair [place] Work Phone: [facility] 07-08-2022 14:22-0500 Body height 166.1 cm Radha Lori PA-C Work Phone: [facility] 07-08-2022 14:22-0500 Body temperature 97.59 [degF] Radha Lori PA-C Work Phone: [facility] 07-08-2022 14:22-0500 Body weight 106.41 kg Radha Lori PA-C Work Phone: [facility] 07-08-2022 14:22-0500 Diastolic blood pressure 42 mm[Hg] Radha Lori PA-C Work Phone: [facility] 07-08-2022 14:22-0500 Heart rate 59 /min Radha Lori PA-C Work Phone: [facility] 07-08-2022 14:22-0500 Respiratory rate 18 /min Radha Lori PA-C Work Phone: [facility] 07-08-2022 14:22-0500 SaO2% (BldA) [Mass fraction] 97 % Radha Lori PA-C Work Phone: [facility] 07-08-2022 14:22-0500 Systolic blood pressure 99 mm[Hg] Radha Lori PA-C Work Phone: [facility] 07-02-2022 14:23-0500 Body temperature 97.9 [degF] Chair [place] Work Phone: [facility] 07-02-2022 14:23-0500 Diastolic blood pressure 62 mm[Hg] Chair [place] Work Phone: [facility] 07-02-2022 14:23-0500 Heart rate 50 /min Chair [place] Work Phone: [facility] 07-02-2022 14:23-0500 Respiratory rate 18 /min Chair [place] Work Phone: [facility] 07-02-2022 14:23-0500 SaO2% (BldA) [Mass fraction] 100 % Chair [place] Work Phone: [facility] 07-02-2022 14:23-0500 Systolic blood pressure 121 mm[Hg] Chair [place] Work Phone: [facility] 07-01-2022 14:15-0500 Body height 166.1 cm Asher Hummel MD Work Phone: [facility] 07-01-2022 14:15-0500 Body temperature 97.59 [degF] Asher Hummel MD Work Phone: [facility] 07-01-2022 14:15-0500 Body weight 105.05 kg Asher Hummel MD Work Phone: [facility] 07-01-2022 14:15-0500 Diastolic blood pressure 54 mm[Hg] Asher Hummel MD Work Phone: [facility] 07-01-2022 14:15-0500 Heart rate 77 /min Asher Hummel MD Work Phone: [facility] 07-01-2022 14:15-0500 Respiratory rate 16 /min Asher Hummel MD Work Phone: [facility] 07-01-2022 14:15-0500 SaO2% (BldA) [Mass fraction] 95 % Asher Hummel MD Work Phone: [facility] 07-01-2022 14:15-0500 Systolic blood pressure 104 mm[Hg] Asher Hummel MD Work Phone: [facility] 06-25-2022 13:35-0500 Body temperature 97.9 [degF] Chair Roman Work Phone: [facility] 06-25-2022 13:35-0500 Diastolic blood pressure 51 mm[Hg] Chair Roman Work Phone: [facility] 06-25-2022 13:35-0500 Heart rate 61 /min Chair [place] Work Phone: [facility] 06-25-2022 13:35-0500 Respiratory rate 18 /min Chair [place] Work Phone: [facility] 06-25-2022 13:35-0500 SaO2% (BldA) [Mass fraction] 99 % Chair [place] Work Phone: [facility] 06-25-2022 13:35-0500 Systolic blood pressure 113 mm[Hg] Chair Roman Work Phone: [facility] 06-24-2022 13:19-0500 Body height 166.1 cm Wilfred Martinez APRN.[employer] Work Phone: [facility] 06-24-2022 13:19-0500 Body temperature 97.39 [degF] Wilfred Martinez APRN.[employer]AST[employer] W[employer]DER Work Phone: [facility] 06-24-2022 13:19-0500 Body weight 104.6 kg Wilfred Martinez APRN.[employer]AST[employer] W[employer]DER Work Phone: [facility] 06-24-2022 13:19-0500 Diastolic blood pressure 52 mm[Hg] Wilfred Martinez APRN.[employer]AST[employer] W[employer]DER Work Phone: [facility] 06-24-2022 13:19-0500 Heart rate 74 /min Wilfred Martinez APRN.[employer]ASTIC W[employer]DER Work Phone: [facility] 06-24-2022 13:19-0500 Respiratory rate 16 /min Wilfred Martinez APRN.[employer]ASTIC W[employer]DER Work Phone: [facility] 06-24-2022 13:19-0500 SaO2% (BldA) [Mass fraction] 95 % Wilfred Martinez APRN.[employer]ASTIC WELDER Work Phone: [facility] 06-24-2022 13:19-0500 Systolic blood pressure 97 mm[Hg] Wilfred Martinez APRN.PLASTIC WELDER Work Phone: [facility] 06-18-2022 13:26-0500 Body temperature 97.7 [degF] Chair [place] Work Phone: [facility] 06-18-2022 13:26-0500 Diastolic blood pressure 74 mm[Hg] Chair [place] Work Phone: [facility] 06-18-2022 13:26-0500 Heart rate 65 /min Chair [place] Work Phone: [facility] 06-18-2022 13:26-0500 Respiratory rate 16 /min Chair Roman Work Phone: [facility] 06-18-2022 13:26-0500 SaO2% (BldA) [Mass fraction] 100 % Chair Roman Work Phone: [facility] 06-18-2022 13:26-0500 Systolic blood pressure 103 mm[Hg] Chair [place] Work Phone: [facility] 06-17-2022 10:04-0500 Body height 166.1 cm Asher Hummel MD Work Phone: [facility] 06-17-2022 10:04-0500 Body temperature 97.11 [degF] Asher Hummel MD Work Phone: [facility] 06-17-2022 10:04-0500 Body weight 105.23 kg Asher Hummel MD Work Phone: [facility] 06-17-2022 10:04-0500 Diastolic blood pressure 57 mm[Hg] Asher Hummel MD Work Phone: [facility] 06-17-2022 10:04-0500 Heart rate 67 /min Asher Hummel MD Work Phone: [facility] 06-17-2022 10:04-0500 Respiratory rate 18 /min Asher Hummel MD Work Phone: [facility] 06-17-2022 10:04-0500 SaO2% (BldA) [Mass fraction] 96 % Asher Hummel MD Work Phone: [facility] 06-17-2022 10:04-0500 Systolic blood pressure 108 mm[Hg] Asher Hummel MD Work Phone: [facility] 06-11-2022 14:00-0500 Body temperature 98.1 [degF] Chair Owens Work Phone: [facility] 06-11-2022 14:00-0500 Diastolic blood pressure 84 mm[Hg] Chair Roman Work Phone: [facility] 11-15-2022 14:00-0500 Heart rate 74 /min Chair [place] Work Phone: [facility] 06-11-2022 14:00-0500 Respiratory rate 18 /min Chair Roman Work Phone: [facility] 06-11-2022 14:00-0500 SaO2% (BldA) [Mass fraction] 95 % Chair [place] Work Phone: [facility] 06-11-2022 14:00-0500 Systolic blood pressure 121 mm[Hg] Chair Roman Work Phone: [facility] 06-10-2022 14:17-0500 Body height 166.1 cm Radha Lori PA-C Work Phone: [facility] 06-10-2022 14:17-0500 Body temperature 97.3 [degF] Radha Lori PA-C Work Phone: [facility] 06-10-2022 14:17-0500 Body weight 105.51 kg Radha Lori PA-C Work Phone: [facility] 06-10-2022 14:17-0500 Diastolic blood pressure 49 mm[Hg] Radha Lori PA-C Work Phone: [facility] 06-10-2022 14:17-0500 Heart rate 78 /min Radha Lori PA-C Work Phone: [facility] 06-10-2022 14:17-0500 Respiratory rate 20 /min Radha Lori PA-C Work Phone: [facility] 06-10-2022 14:17-0500 SaO2% (BldA) [Mass fraction] 94 % Radha Lori PA-C Work Phone: [facility] 06-10-2022 14:17-0500 Systolic blood pressure 111 mm[Hg] Radha Lori PA-C Work Phone: [facility] 06-03-2022 13:15-0500 Body height 166.1 cm Asher Hummel MD Work Phone: [facility] 06-03-2022 13:15-0500 Body temperature 97.2 [degF] Asher Hummel MD Work Phone: [facility] 06-03-2022 13:15-0500 Body weight 108.68 kg Asher Hummel MD Work Phone: [facility] 06-03-2022 13:15-0500 Diastolic blood pressure 59 mm[Hg] Asher Hummel MD Work Phone: [facility] 06-03-2022 13:15-0500 Heart rate 73 /min Asher Hummel MD Work Phone: [facility] 06-03-2022 13:15-0500 Respiratory rate 20 /min Asher Hummel MD Work Phone: [facility] 06-03-2022 13:15-0500 SaO2% (BldA) [Mass fraction] 95 % Asher Hummel MD Work Phone: [facility] 06-03-2022 13:15-0500 Systolic blood pressure 97 mm[Hg] Asher Hummel MD Work Phone: [facility] 05-28-2022 13:20-0400 Body temperature 97.39 [degF] Chair [place] Work Phone: [facility] 05-28-2022 13:20-0400 Diastolic blood pressure 56 mm[Hg] Chair [place] Work Phone: [facility] 05-28-2022 13:20-0400 Heart rate 60 /min Chair [place] Work Phone: [facility] 05-28-2022 13:20-0400 Respiratory rate 18 /min Chair Roman Work Phone: [facility] 05-28-2022 13:20-0400 SaO2% (BldA) [Mass fraction] 98 % Chair Roman Work Phone: [facility] 05-28-2022 13:20-0400 Systolic blood pressure 120 mm[Hg] Chair Roman Work Phone: [facility] 05-27-2022 13:34-0400 Body temperature 97.3 [degF] Chair [place] Work Phone: [facility] 05-27-2022 13:34-0400 Diastolic blood pressure 55 mm[Hg] Chair [place] Work Phone: [facility] 05-27-2022 13:34-0400 Heart rate 62 /min Chair [place] Work Phone: [facility] 05-27-2022 13:34-0400 Respiratory rate 18 /min Chair Roman Work Phone: [facility] 05-27-2022 13:34-0400 SaO2% (BldA) [Mass fraction] 98 % Chair [place] Work Phone: [facility] 05-27-2022 13:34-0400 Systolic blood pressure 120 mm[Hg] Chair Roman Work Phone: [facility] 05-21-2022 10:25-0400 Body temperature 98.01 [degF] Chair Roman Work Phone: [facility] 05-21-2022 10:25-0400 Diastolic blood pressure 57 mm[Hg] Chair [place] Work Phone: [facility] 05-21-2022 10:25-0400 Heart rate 53 /min Chair [place] Work Phone: [facility] 05-21-2022 10:25-0400 Respiratory rate 20 /min Chair [place] Work Phone: [facility] 05-21-2022 10:25-0400 SaO2% (BldA) [Mass fraction] 99 % Chair [place] Work Phone: [facility] 05-21-2022 10:25-0400 Systolic blood pressure 115 mm[Hg] Chair [place] Work Phone: [facility] 05-20-2022 13:54-0400 Body height 166.1 cm Asher Hummel MD Work Phone: [facility] 05-20-2022 13:54-0400 Body temperature 97.5 [degF] Asher Hummel MD Work Phone: [facility] 05-20-2022 13:54-0400 Body weight 108.14 kg Asher Hummel MD Work Phone: [facility] 05-20-2022 13:54-0400 Diastolic blood pressure 47 mm[Hg] Asher Hummel MD Work Phone: [facility] 05-20-2022 13:54-0400 Heart rate 74 /min Asher Hummel MD Work Phone: [facility] 05-20-2022 13:54-0400 Respiratory rate 18 /min Asher Hummel MD Work Phone: [facility] 05-20-2022 13:54-0400 SaO2% (BldA) [Mass fraction] 94 % Asher Hummel MD Work Phone: [facility] 05-20-2022 13:54-0400 Systolic blood pressure 121 mm[Hg] Asher Hummel MD Work Phone: [facility] 05-13-2022 14:48-0400 Body temperature 97.39 [degF] [facility] Work Phone: [facility] 05-13-2022 14:48-0400 Diastolic blood pressure 61 mm[Hg] [facility] Work Phone: [facility] 05-13-2022 14:48-0400 Heart rate 89 /min [facility] [place] Work Phone: [facility] 05-13-2022 14:48-0400 Respiratory rate 18 /min [facility] Work Phone: [facility] 05-13-2022 14:48-0400 SaO2% (BldA) [Mass fraction] 96 % [facility] [place] Work Phone: [facility] 05-13-2022 14:48-0400 Systolic blood pressure 107 mm[Hg] [facility] [place] Work Phone: [facility] 05-06-2022 16:19-0400 Body height 167.1 cm Asher Hummel MD Work Phone: [facility] 05-06-2022 16:19-0400 Body temperature 97.5 [degF] Asher Hummel MD Work Phone: [facility] 05-06-2022 16:19-0400 Body weight 111.77 kg Asher Hummel MD Work Phone: [facility] 05-06-2022 16:19-0400 Diastolic blood pressure 83 mm[Hg] Asher Hummel MD Work Phone: [facility] 05-06-2022 16:19-0400 Heart rate 65 /min Asher Hummel MD Work Phone: [facility] [facility] [place] 05-06-2022 16:19-0400 Respiratory rate 16 /min Asher Hummel MD Work Phone: [facility] [place] 05-06-2022 16:19-0400 SaO2% (BldA) [Mass fraction] 94 % Asher Hummel MD Work Phone: [facility] [place] 05-06-2022 16:19-0400 Systolic blood pressure 140 mm[Hg] Asher Hummel MD Work Phone: [facility] [place] 04-29-2022 12:49-0400 Body height 167.1 cm Asher Hummle MD Work Phone: [facility] [place] 04-29-2022 12:49-0400 Body temperature 97.81 [degF] Asher Hummel MD Work Phone: [facility] [place] 04-29-2022 12:49-0400 Body weight 108.95 kg Asher Hummel MD Work Phone: [facility] [place] 04-29-2022 12:49-0400 Diastolic blood pressure 64 mm[Hg] Asher Hummel MD Work Phone: [facility] [place] 04-29-2022 12:49-0400 Heart rate 55 /min Asher Hummel MD Work Phone: [facility] [place] 04-29-2022 12:49-0400 Respiratory rate 20 /min Asher Hummel MD Work Phone: [facility] [place] 04-29-2022 12:49-0400 SaO2% (BldA) [Mass fraction] 92 % Asher Hummel MD Work Phone: [facility] [place] 04-29-2022 12:49-0400 Systolic blood pressure 119 mm[Hg] Asher Hummel MD Work Phone: [facility] [place] 04-25-2022 07:52-0400 Body height 167.1 cm Asher Hummel MD Work Phone: [facility] [place] 04-25-2022 07:52-0400 Body temperature 97.2 [degF] Asher Hummel MD Work Phone: [facility] [place] 04-25-2022 07:52-0400 Body weight 109.59 kg Asher Hummel MD Work Phone: [facility] [place] 04-25-2022 07:52-0400 Diastolic blood pressure 59 mm[Hg] Asher Hummel MD Work Phone: [facility] [place] 04-25-2022 07:52-0400 Heart rate 54 /min Asher Hummel MD Work Phone: [facility] [place] 04-25-2022 07:52-0400 Respiratory rate 18 /min Asher Hummel MD Work Phone: [facility] [place] 04-25-2022 07:52-0400 SaO2% (BldA) [Mass fraction] 94 % Asher Hummel MD Work Phone: [facility] [place] 04-25-2022 07:52-0400 Systolic blood pressure 131 mm[Hg] Asher Hummel MD Work Phone: [facility] [place] 04-18-2022 13:54-0400 Body height 167.1 cm Elysia Esposito MD Work Phone: [facility] [place] 04-18-2022 13:54-0400 Body temperature 98.2 [degF] Elysia Esposito MD Work Phone: [facility] [place] 04-18-2022 13:54-0400 Body weight 109.63 kg Elysia Esposito MD Work Phone: [facility] [place] 04-18-2022 13:54-0400 Diastolic blood pressure 50 mm[Hg] Elysia Esposito MD Work Phone: [facility] [place] 04-18-2022 13:54-0400 Heart rate 63 /min Elysia Esposito MD Work Phone: [facility] [place] 04-18-2022 13:54-0400 Respiratory rate 22 /min Elysia Esposito MD Work Phone: [facility] [place] 04-18-2022 13:54-0400 SaO2% (BldA) [Mass fraction] 98 % Elysia Esposito MD Work Phone: [facility] [place] 04-18-2022 13:54-0400 Systolic blood pressure 135 mm[Hg] Elysia Esposito MD Work Phone: [facility] [place] 04-08-2022 14:25-0400 Body height 165.2 cm Asher Hummel MD Work Phone: [facility] [place] 04-08-2022 14:25-0400 Body temperature 97.3 [degF] Asher Hummel MD Work Phone: [facility] [place] 04-08-2022 14:25-0400 Body weight 111.4 kg Asher Hummel MD Work Phone: [facility] [place] 04-08-2022 14:25-0400 Diastolic blood pressure 62 mm[Hg] Asher Hummel MD Work Phone: [facility] [place] 04-08-2022 14:25-0400 Heart rate 65 /min Asher Hummel MD Work Phone: [facility] [place] 04-08-2022 14:25-0400 Respiratory rate 16 /min Asher Hummel MD Work Phone: [facility] [place] 04-08-2022 14:25-0400 SaO2% (BldA) [Mass fraction] 94 % Asher Hummel MD Work Phone: [facility] [place] 04-08-2022 14:25-0400 Systolic blood pressure 99 mm[Hg] Asher Hummel MD Work Phone: [facility] [place] 03-25-2022 14:20-0400 Body temperature 98.1 [degF] [facility] Work Phone: [facility] [place] 03-25-2022 14:20-0400 Diastolic blood pressure 44 mm[Hg] [facility] Work Phone: [facility] [place] 03-25-2022 14:20-0400 Heart rate 66 /min [facility] [place] Work Phone: [facility] [place] 03-25-2022 14:20-0400 Respiratory rate 18 /min [facility] Work Phone: [facility] [place] 03-25-2022 14:20-0400 SaO2% (BldA) [Mass fraction] 96 % [facility] Work Phone: [facility] [place] 03-25-2022 14:20-0400 Systolic blood pressure 109 mm[Hg] [facility] [place] Work Phone: [facility] [place] 03-15-2022 13:58-0400 Heart rate 58 /min [facility] [place] Work Phone: [facility] [place] 03-15-2022 13:21-0400 Body temperature 97.81 [degF] Chair Roman Work Phone: [facility] [place] 03-15-2022 13:21-0400 Diastolic blood pressure 49 mm[Hg] [facility] [place] Work Phone: [facility] [place] 03-15-2022 13:21-0400 Respiratory rate 18 /min Chair Roman Work Phone: [facility] [place] 03-15-2022 13:21-0400 SaO2% (BldA) [Mass fraction] 97 % Chair Roman Work Phone: [facility] [place] 03-15-2022 13:21-0400 Systolic blood pressure 111 mm[Hg] Chair Roman Work Phone: [facility] [place] 03-14-2022 14:46-0400 Body temperature 97.81 [degF] [facility] [place] Work Phone: [facility] [place] 03-14-2022 14:46-0400 Diastolic blood pressure 63 mm[Hg] [facility] [place] Work Phone: [facility] [place] 03-14-2022 14:46-0400 Heart rate 64 /min Chair Roman Work Phone: [facility] [place] 03-14-2022 14:46-0400 Respiratory rate 18 /min Chair Roman Work Phone: [facility] [place] 03-14-2022 14:46-0400 SaO2% (BldA) [Mass fraction] 96 % [facility] [place] Work Phone: [facility] [place] 03-14-2022 14:46-0400 Systolic blood pressure 107 mm[Hg] [facility] [place] Work Phone: [facility] [place] 03-13-2022 14:41-0400 Body temperature 98.1 [degF] [facility] [place] Work Phone: [facility] [place] 03-13-2022 14:41-0400 Diastolic blood pressure 54 mm[Hg] [facility] [place] Work Phone: [facility] [place] 03-13-2022 14:41-0400 Heart rate 60 /min Chair Roman Work Phone: [facility] [place] 03-13-2022 14:41-0400 Respiratory rate 20 /min [facility] [place] Work Phone: [facility] [place] 03-13-2022 14:41-0400 SaO2% (BldA) [Mass fraction] 97 % Chair Roman Work Phone: [facility] [place] 03-13-2022 14:41-0400 Systolic blood pressure 116 mm[Hg] [facility] [place] Work Phone: [facility] [place] 03-11-2022 14:10-0400 Body height 165.2 cm Asher Hummel MD Work Phone: [facility] [place] 03-11-2022 14:10-0400 Body temperature 97.3 [degF] Asher Hummel MD Work Phone: [facility] [place] 03-11-2022 14:10-0400 Body weight 112.58 kg Asher Hummel MD Work Phone: [facility] [place] 03-11-2022 14:10-0400 Diastolic blood pressure 38 mm[Hg] Asher Hummel MD Work Phone: [facility] [place] 03-11-2022 14:10-0400 Heart rate 60 /min Asher Hummel MD Work Phone: [facility] [place] 03-11-2022 14:10-0400 Respiratory rate 18 /min Asher Hummel MD Work Phone: [facility] [place] 03-11-2022 14:10-0400 SaO2% (BldA) [Mass fraction] 98 % Asher Hummel MD Work Phone: [facility] [place] 03-11-2022 14:10-0400 Systolic blood pressure 106 mm[Hg] Asher Hummel MD Work Phone: [facility] [place] 02-25-2022 14:50-0400 Body temperature 98.1 [degF] [facility] Work Phone: [facility] [place] 02-25-2022 14:50-0400 Diastolic blood pressure 56 mm[Hg] [facility] [place] Work Phone: [facility] [place] 02-25-2022 14:50-0400 Heart rate 59 /min [facility] Work Phone: [facility] [place] 02-25-2022 14:50-0400 Respiratory rate 18 /min [facility] Work Phone: [facility] [place] 02-25-2022 14:50-0400 SaO2% (BldA) [Mass fraction] 100 % [facility] Work Phone: [facility] [place] 02-25-2022 14:50-0400 Systolic blood pressure 110 mm[Hg] [facility] Work Phone: [facility] [place] 02-15-2022 13:15-0400 Body temperature 97.7 [degF] Chair Roman Work Phone: [facility] [place] 02-15-2022 13:15-0400 Diastolic blood pressure 63 mm[Hg] Chair Roman Work Phone: [facility] [place] 02-15-2022 13:15-0400 Heart rate 74 /min [facility] [place] Work Phone: [facility] [place] 02-15-2022 13:15-0400 Respiratory rate 18 /min Chair Roman Work Phone: [facility] [place] 02-15-2022 13:15-0400 SaO2% (BldA) [Mass fraction] 99 % [facility] [place] Work Phone: [facility] [place] 02-15-2022 13:15-0400 Systolic blood pressure 109 mm[Hg] [facility] [place] Work Phone: [facility] [place] 02-14-2022 13:35-0400 Body temperature 97.59 [degF] [facility] [place] Work Phone: [facility] [place] 02-14-2022 13:35-0400 Diastolic blood pressure 79 mm[Hg] [facility] [place] Work Phone: [facility] [place] 02-14-2022 13:35-0400 Heart rate 65 /min Chair Roman Work Phone: [facility] [place] 02-14-2022 13:35-0400 Respiratory rate 18 /min Chair Roman Work Phone: [facility] [place] 02-14-2022 13:35-0400 SaO2% (BldA) [Mass fraction] 99 % [facility] [place] Work Phone: [facility] [place] 02-14-2022 13:35-0400 Systolic blood pressure 118 mm[Hg] [facility] [place] Work Phone: [facility] [place] 02-13-2022 13:10-0400 Body temperature 98.2 [degF] Chair Roman Work Phone: [facility] [place] 02-13-2022 13:10-0400 Diastolic blood pressure 45 mm[Hg] [facility] [place] Work Phone: [facility] [place] 02-13-2022 13:10-0400 Heart rate 53 /min [facility] [place] Work Phone: [facility] [place] 02-13-2022 13:10-0400 Respiratory rate 18 /min [facility] [place] Work Phone: [facility] [place] 02-13-2022 13:10-0400 SaO2% (BldA) [Mass fraction] 99 % [facility] [place] Work Phone: [facility] [place] 02-13-2022 13:10-0400 Systolic blood pressure 101 mm[Hg] [facility] [place] Work Phone: [facility] [place] 02-12-2022 13:10-0400 Diastolic blood pressure 52 mm[Hg] Chair Roman Work Phone: [facility] [place] 02-12-2022 13:10-0400 Heart rate 68 /min [facility] [place] Work Phone: [facility] [place] 02-12-2022 13:10-0400 Respiratory rate 18 /min [facility] [place] Work Phone: [facility] [place] 02-12-2022 13:10-0400 SaO2% (BldA) [Mass fraction] 98 % [facility] [place] Work Phone: [facility] [place] 02-12-2022 13:10-0400 Systolic blood pressure 98 mm[Hg] [facility] [place] Work Phone: [facility] [place] 02-11-2022 14:35-0400 Body height 165.2 cm Radha Lori PA-C Work Phone: [facility] [place] 02-11-2022 14:35-0400 Body temperature 97 [degF] Radha Lori PA-C Work Phone: [facility] [place] 02-11-2022 14:35-0400 Body weight 110.95 kg Radha Lori PA-C Work Phone: [facility] [place] 02-11-2022 14:35-0400 Diastolic blood pressure 42 mm[Hg] Radha Lori PA-C Work Phone: [facility] [place] 02-11-2022 14:35-0400 Heart rate 81 /min Radha Lori PA-C Work Phone: [facility] [place] 02-11-2022 14:35-0400 Respiratory rate 16 /min Radha Lori PA-C Work Phone: [facility] [place] 02-11-2022 14:35-0400 SaO2% (BldA) [Mass fraction] 98 % Radha Lori PA-C Work Phone: [facility] [place] 02-11-2022 14:35-0400 Systolic blood pressure 104 mm[Hg] Radha Lori PA-C Work Phone: [facility] [place] 02-04-2022 13:25-0400 Body temperature 98.1 [degF] [facility] Work Phone: [facility] [place] 02-04-2022 13:25-0400 Diastolic blood pressure 63 mm[Hg] [facility] Work Phone: [facility] [place] 02-04-2022 13:25-0400 Heart rate 88 /min [facility] Work Phone: [facility] [place] 02-04-2022 13:25-0400 Respiratory rate 20 /min [facility] Work Phone: [facility] [place] 02-04-2022 13:25-0400 SaO2% (BldA) [Mass fraction] 99 % [facility] Work Phone: [facility] [place] 02-04-2022 13:25-0400 Systolic blood pressure 142 mm[Hg] [facility] Work Phone: [facility] [place] 01-30-2022 14:00-0400 Body temperature 98.2 [degF] [facility] Work Phone: [facility] [place] 01-30-2022 14:00-0400 Diastolic blood pressure 54 mm[Hg] [facility] Work Phone: [facility] [place] 01-30-2022 14:00-0400 Heart rate 70 /min [facility] Work Phone: [facility] [place] 01-30-2022 14:00-0400 Respiratory rate 18 /min [facility] Work Phone: [facility] [place] 01-30-2022 14:00-0400 SaO2% (BldA) [Mass fraction] 98 % [facility] Work Phone: [facility] [place] 01-30-2022 14:00-0400 Systolic blood pressure 107 mm[Hg] [facility] Work Phone: [facility] [place] 01-21-2022 11:18-0400 Body temperature 97.81 [degF] [facility] [place] Work Phone: [facility] [place] 01-21-2022 11:18-0400 Diastolic blood pressure 52 mm[Hg] Chair [facility] Work Phone: [facility] [place] 01-21-2022 11:18-0400 Heart rate 78 /min [facility] [place] Work Phone: [facility] [place] 01-21-2022 11:18-0400 Respiratory rate 16 /min [facility] [place] Work Phone: [facility] [place] 01-21-2022 11:18-0400 SaO2% (BldA) [Mass fraction] 98 % [facility] [place] Work Phone: [facility] [place] 01-21-2022 11:18-0400 Systolic blood pressure 98 mm[Hg] [facility] [place] Work Phone: [facility] [place] 01-18-2022 13:20-0400 Body temperature 96.8 [degF] [facility] [place] Work Phone: [facility] [place] 01-18-2022 13:20-0400 Diastolic blood pressure 50 mm[Hg] [facility] [place] Work Phone: [facility] [place] 01-18-2022 13:20-0400 Heart rate 58 /min [facility] [place] Work Phone: [facility] [place] 01-18-2022 13:20-0400 Respiratory rate 18 /min [facility] [place] Work Phone: [facility] [place] 01-18-2022 13:20-0400 SaO2% (BldA) [Mass fraction] 99 % [facility] [place] Work Phone: [facility] [place] 01-18-2022 13:20-0400 Systolic blood pressure 116 mm[Hg] [facility] [place] Work Phone: [facility] [place] 01-17-2022 13:49-0400 Body temperature 97.3 [degF] Chair Roman Work Phone: [facility] [place] 01-17-2022 13:49-0400 Diastolic blood pressure 68 mm[Hg] Chair Roman Work Phone: [facility] [place] 01-17-2022 13:49-0400 Heart rate 56 /min Chair Roman Work Phone: [facility] [place] 01-17-2022 13:49-0400 Respiratory rate 18 /min Chair Roman Work Phone: [facility] [place] 01-17-2022 13:49-0400 SaO2% (BldA) [Mass fraction] 99 % [facility] [place] Work Phone: [facility] [place] 01-17-2022 13:49-0400 Systolic blood pressure 112 mm[Hg] [facility] [place] Work Phone: [facility] [place] 01-16-2022 13:06-0400 Body temperature 96.69 [degF] Chair Roman Work Phone: [facility] [place] 01-16-2022 13:06-0400 Diastolic blood pressure 49 mm[Hg] [facility] [place] Work Phone: [facility] [place] 01-16-2022 13:06-0400 Heart rate 58 /min [facility] [place] Work Phone: [facility] [place] 01-16-2022 13:06-0400 Respiratory rate 18 /min Chair Roman Work Phone: [facility] [place] 01-16-2022 13:06-0400 SaO2% (BldA) [Mass fraction] 98 % [facility] [place] Work Phone: [facility] [place] 01-16-2022 13:06-0400 Systolic blood pressure 109 mm[Hg] [facility] [place] Work Phone: [facility] [place] 01-15-2022 14:00-0400 Body temperature 98.29 [degF] [facility] [place] Work Phone: [facility] [place] 01-15-2022 14:00-0400 Diastolic blood pressure 57 mm[Hg] [facility] [place] Work Phone: [facility] [place] 01-15-2022 14:00-0400 Heart rate 72 /min [facility] [place] Work Phone: [facility] [place] 01-15-2022 14:00-0400 Respiratory rate 18 /min [facility] [place] Work Phone: [facility] [place] 01-15-2022 14:00-0400 SaO2% (BldA) [Mass fraction] 98 % [facility] [place] Work Phone: [facility] [place] 01-15-2022 14:00-0400 Systolic blood pressure 101 mm[Hg] [facility] [place] Work Phone: [facility] [place] 01-14-2022 13:24-0400 Body height 165.2 cm Ahser Hummel MD Work Phone: [facility] [place] 01-14-2022 13:24-0400 Body temperature 97.2 [degF] Asher Hummel MD Work Phone: [facility] [place] 01-14-2022 13:24-0400 Body weight 108.14 kg Asher Hmumel MD Work Phone: [facility] [place] 01-14-2022 13:24-0400 Diastolic blood pressure 73 mm[Hg] Asher Hummel MD Work Phone: [facility] [place] 01-14-2022 13:24-0400 Heart rate 64 /min Asher Hummel MD Work Phone: [facility] [place] 01-14-2022 13:24-0400 Respiratory rate 16 /min Asher Hummel MD Work Phone: [facility] [place] 01-14-2022 13:24-0400 SaO2% (BldA) [Mass fraction] 98 % Asher Hummel MD Work Phone: [facility] [place] 01-14-2022 13:24-0400 Systolic blood pressure 126 mm[Hg] Asher Hummel MD Work Phone: [facility] [place] 01-07-2022 14:00-0400 Body height 165.2 cm Ma Sand Work Phone: [facility] [place] 01-07-2022 14:00-0400 Body temperature 97.59 [degF] Ma Sand Work Phone: [facility] [place] 01-07-2022 14:00-0400 Body weight 101.15 kg Ma Sand Work Phone: [facility] [place] 01-07-2022 14:00-0400 Diastolic blood pressure 56 mm[Hg] Ma Sand Work Phone: [facility] [place] 01-07-2022 14:00-0400 Heart rate 70 /min Ma Sand Work Phone: [facility] [place] 01-07-2022 14:00-0400 Respiratory rate 16 /min Ma Sand Work Phone: [facility] [place] 01-07-2022 14:00-0400 SaO2% (BldA) [Mass fraction] 92 % Ma Sand Work Phone: [facility] [place] 01-07-2022 14:00-0400 Systolic blood pressure 101 mm[Hg] Ma Sand Work Phone: [facility] [place] 12-21-2021 13:24-0400 Body temperature 97.59 [degF] [facility] [place] Work Phone: [facility] [place] 12-21-2021 13:24-0400 Diastolic blood pressure 46 mm[Hg] Chair [facility] Work Phone: [facility] [place] 12-21-2021 13:24-0400 Heart rate 54 /min [facility] [place] Work Phone: [facility] [place] 12-21-2021 13:24-0400 Respiratory rate 18 /min [facility] [place] Work Phone: [facility] [place] 12-21-2021 13:24-0400 SaO2% (BldA) [Mass fraction] 97 % [facility] [place] Work Phone: [facility] [place] 12-21-2021 13:24-0400 Systolic blood pressure 127 mm[Hg] [facility] [place] Work Phone: [facility] [place] 12-20-2021 13:35-0400 Body temperature 97.7 [degF] [facility] [place] Work Phone: [facility] [place] 12-20-2021 13:35-0400 Diastolic blood pressure 55 mm[Hg] [facility] [place] Work Phone: [facility] [place] 12-20-2021 13:35-0400 Heart rate 57 /min Chair Roman Work Phone: [facility] [place] 12-20-2021 13:35-0400 Respiratory rate 16 /min Chair Roman Work Phone: [facility] [place] 12-20-2021 13:35-0400 SaO2% (BldA) [Mass fraction] 99 % [facility] [place] Work Phone: [facility] [place] 12-20-2021 13:35-0400 Systolic blood pressure 107 mm[Hg] Chair Roman Work Phone: [facility] [place] 12-19-2021 13:32-0400 Body temperature 97.7 [degF] [facility] [place] Work Phone: [facility] [place] 12-19-2021 13:32-0400 Diastolic blood pressure 48 mm[Hg] [facility] [place] Work Phone: [facility] [place] 12-19-2021 13:32-0400 Heart rate 53 /min Chair Roman Work Phone: [facility] [place] 12-19-2021 13:32-0400 Respiratory rate 18 /min [facility] [place] Work Phone: [facility] [place] 12-19-2021 13:32-0400 SaO2% (BldA) [Mass fraction] 97 % [facility] [place] Work Phone: [facility] [place] 12-19-2021 13:32-0400 Systolic blood pressure 113 mm[Hg] [facility] [place] Work Phone: [facility] [place] 12-17-2021 13:11-0400 Body height 165.2 cm Asher Hummel MD Work Phone: [facility] [place] 12-17-2021 13:11-0400 Body temperature 97.3 [degF] Asher Hummel MD Work Phone: [facility] [place] 12-17-2021 13:11-0400 Body weight 101.24 kg Asher Hummel MD Work Phone: [facility] [place] 12-17-2021 13:11-0400 Diastolic blood pressure 53 mm[Hg] Asher Hummel MD Work Phone: [facility] [place] 12-17-2021 13:11-0400 Heart rate 59 /min Asher Hummel MD Work Phone: [facility] [place] 12-17-2021 13:11-0400 Respiratory rate 16 /min Asher Hummel MD Work Phone: [facility] [place] 12-17-2021 13:11-0400 SaO2% (BldA) [Mass fraction] 88 % Asher Hummel MD Work Phone: [facility] [place] 12-17-2021 13:11-0400 Systolic blood pressure 114 mm[Hg] Asher Hummel MD Work Phone: [facility] [place] 11-29-2021 08:49-0400 Body height 165.2 cm Asher Hummel MD Work Phone: [facility] [place] 11-29-2021 08:49-0400 Body temperature 97.81 [degF] Asher Hummel MD Work Phone: [facility] [place] 11-29-2021 08:49-0400 Diastolic blood pressure 51 mm[Hg] Asher Hummel MD Work Phone: [facility] [place] 11-29-2021 08:49-0400 Heart rate 58 /min Asher Hummel MD Work Phone: [facility] [place] 11-29-2021 08:49-0400 Respiratory rate 16 /min Asher Hummel MD Work Phone: [facility] [facility] 11-29-2021 08:49-0400 SaO2% (BldA) [Mass fraction] 99 % Asher Hummel MD Work Phone: [facility] 11-29-2021 08:49-0400 Systolic blood pressure 134 mm[Hg] Asher Hummel MD Work Phone: [facility] 11-08-2021 16:00-0400 Body temperature 98.01 [degF] [facility] [place] Work Phone: [facility] 11-08-2021 16:00-0400 Body weight 109.77 kg [facility] Work Phone: [facility] 11-08-2021 16:00-0400 Diastolic blood pressure 51 mm[Hg] [facility] [place] Work Phone: [facility] 11-08-2021 16:00-0400 Heart rate 80 /min [facility] Work Phone: [facility] 11-08-2021 16:00-0400 Respiratory rate 16 /min [facility] Work Phone: [facility] 11-08-2021 16:00-0400 SaO2% (BldA) [Mass fraction] 92 % [facility] Work Phone: [facility] 11-08-2021 16:00-0400 Systolic blood pressure 123 mm[Hg] [facility] Work Phone: [facility] 11-01-2021 14:03-0400 Body temperature 98.2 [degF] Chair [place] Work Phone: [facility] 11-01-2021 14:03-0400 Diastolic blood pressure 59 mm[Hg] Chair [place] Work Phone: [facility] 11-01-2021 14:03-0400 Heart rate 78 /min Chair [place] Work Phone: [facility] 11-01-2021 14:03-0400 Respiratory rate 18 /min Chair [place] Work Phone: [facility] 11-01-2021 14:03-0400 SaO2% (BldA) [Mass fraction] 98 % Chair [place] Work Phone: [facility] 11-01-2021 14:03-0400 Systolic blood pressure 109 mm[Hg] Chair [place] Work Phone: [facility] 10-30-2021 13:55-0400 Body temperature 97.7 [degF] Chair [place] Work Phone: [facility] 10-30-2021 13:55-0400 Diastolic blood pressure 53 mm[Hg] Chair [place] Work Phone: [facility] 10-30-2021 13:55-0400 Heart rate 82 /min Chair Roman Work Phone: [facility] 10-30-2021 13:55-0400 Respiratory rate 18 /min Chair [place] Work Phone: [facility] 10-30-2021 13:55-0400 SaO2% (BldA) [Mass fraction] 97 % Chair [place] Work Phone: [facility] 10-30-2021 13:55-0400 Systolic blood pressure 107 mm[Hg] Chair [place] Work Phone: [facility] 10-29-2021 14:27-0400 Body temperature 97.81 [degF] Chair [place] Work Phone: [facility] 10-29-2021 14:27-0400 Body weight 109.41 kg Chair [place] Work Phone: [facility] 10-29-2021 14:27-0400 Diastolic blood pressure 40 mm[Hg] Chair Roman Work Phone: [facility] 10-29-2021 14:27-0400 Heart rate 72 /min Chair [place] Work Phone: [facility] 10-29-2021 14:27-0400 Respiratory rate 18 /min Chair Roman Work Phone: [facility] 10-29-2021 14:27-0400 SaO2% (BldA) [Mass fraction] 98 % Chair Roman Work Phone: [facility] 10-29-2021 14:27-0400 Systolic blood pressure 102 mm[Hg] Chair Roman Work Phone: [facility] 10-25-2021 14:02-0400 Diastolic blood pressure 48 mm[Hg] Wilfred Martinez P[employer] AND AUX[employer]IES SUPERVISOR.PLASTIC WELDER Work Phone: [facility] 10-25-2021 14:02-0400 Heart rate 80 /min Wilfred Martinez APRN.PLASTIC WELDER Work Phone: [facility] 10-25-2021 14:02-0400 Systolic blood pressure 140 mm[Hg] Wilfred Martinez APRN.PLASTIC WELDER Work Phone: [facility] 10-25-2021 14:00-0400 Body height 165.2 cm Wilfred Martinez APRN.PLASTIC WELDER Work Phone: [facility] 10-25-2021 14:00-0400 Body temperature 97.5 [degF] Wilfred Martinez APRN.PLASTIC WELDER Work Phone: [facility] 10-25-2021 14:00-0400 Body weight 108.77 kg Wilfred Martinez APRN.PLASTIC WELDER Work Phone: [facility] 10-25-2021 14:00-0400 Respiratory rate 16 /min Wilfred Martinez APRN.PLASTIC WELDER Work Phone: [facility] 10-25-2021 14:00-0400 SaO2% (BldA) [Mass fraction] 97 % Wilfred Martinez APRN.PLASTIC WELDER Work Phone: [facility] 09-05-2021 15:03-0500 Body temperature 98.71 [degF] Chair Roman Work Phone: [facility] 09-05-2021 15:03-0500 Diastolic blood pressure 69 mm[Hg] Chair Roman Work Phone: [facility] 09-05-2021 15:03-0500 Heart rate 70 /min Chair [place] Work Phone: [facility] 09-05-2021 15:03-0500 Respiratory rate 20 /min Chair Roman Work Phone: [facility] 09-05-2021 15:03-0500 SaO2% (BldA) [Mass fraction] 98 % Chair Roman Work Phone: [facility] 09-05-2021 15:03-0500 Systolic blood pressure 118 mm[Hg] Chair [place] Work Phone: [facility] Encounters Encounter Date Encounter Type Care Provider Facility Start: 04-05-2024 ambulatory Álvaro Barton Facility :[facility] Michael Start: 04-02-2024 [facility] Start: 10-13-2023 ambulatory Álvaro Barton Facility :[facility] Michael Start: 09-29-2023 End: 09-29-2023 ambulatory [facility] Start: 09-22-2023 End: 09-23-2023 ambulatory Mayank DO Facility:[facility] Michael Start: 08-29-2023 End: 08-29-2023 ambulatory [facility] Start: 08-19-2023 End: 08-20-2023 [facility] Start: 07-17-2023 End: 07-17-2023 ambulatory RAYO [facility] Start: 07-15-2023 End: 07-16-2023 ambulatory Álvaro Barton Facility:[facility] Jillian sosa Start: 07-11-2023 End: 08-11-2023 ambulatory Álvaro Barton Facility:[id number] Start: 04-16-2023 End: 04-17-2023 ambulatory Álvaro Barton Facility:[facility] sosa Start: 03-17-2023 ambulatory Álvaro Barton Facility : [facility] Rodriguez Start: 03-14-2023 End: 03-14-2023 ambulatory [facility] Start: 03-11-2023 End: 03-12-2023 ambulatory Mhd Lyle Lu Facility:[facility] Start: 03-11-2023 End: 03-12-2023 ambulatory Mhd Lyle Lu Facility:[facility] Start: 03-11-2023 End: 03-11-2023 Patient encounter procedure Mhd Lyle Lu [facility] Start: 03-10-2023 End: 03-11-2023 ambulatory Álvaro Barton Facility: [facility] Start: 02-13-2023 End: 02-14-2023 ambulatory Álvaro Barton Facility: [facility] Start: 01-10-2023 End: 01-11-2023 ambulatory Malinda L Earl Facility:[facility] Start: 01-10-2023 End: 01-11-2023 ambulatory Álvaro Barton Facility:[facility] Start: 01-10-2023 End: 01-10-2023 Lab Drop off Malinda Amos Earl [facility] Start: 01-10-2023 End: 01-10-2023 Lab Drop off Álvaro Barton [facility] Start: 01-06-2023 End: 01-07-2023 ambulatory Álvaro Barton Facility:[facility] Start: 01-06-2023 End: 01-07-2023 ambulatory Álvaro Barton Facility:[facility] Jillian sosa Start: 12-30-2022 Refill Oumou Wade MD Work Phone: Otolaryngology Comment on above: Refill Request Start: 12-10-2022 End: 12-25-[address] FLASH PEARL . Facility: Start: 12-04-2022 End: 12-24-[address] FLASH PEARL . Facility:[facility] Start: 12-03-2022 End: 12-04-[address] FLASH PEARL . Facility: Start: 11-20-2022 End: 11-20-2022 ambulatory ASHER HUMMEL Facility:[facility] Start: 11-20-2022 End: 11-20-2022 Office outpatient [...] Start: 11-20-2022 End: 11-21-2022 ambulatory FLASH PEARL Facility: [facility] Start: 11-20-2022 Telephone encounter Angle parmar RN Work Phone: Hematology/Oncology Comment on above: Care Coordination (H ospice/Treatment Update) Start: 11-19-2022 Telephone encounter Angle parmar RN Work Phone: Hematology/Oncology Comment on above: Care Coordination (P t Update) Start: 11-14-2022 End: 11-17-2022 Evaluation and management of inpatient MARICRUZ FLAKITA . Facility: Start: 11-13-2022 End: 11-14-2022 ambulatory Malinda Elliott Facility: [facility] Start: 11-12-2022 End: 11-13-2022 ambulatory Jasper MARIE Facility: [facility] Start: 11-06-2022 End: 11-13-[address] DOCTOR TOM Facility: Start: 11-06-2022 Patient encounter procedure [facility] Provider [facility] Department Start: 11-06-2022 Telephone encounter Asher frances MD Work Phone: [facility] Comment on above: Results Care Coordination (C BC Results) Start: 10-30-2022 End: 10-30-2022 ambulatory Chair 17 [place] Work Phone: Hematology/Oncology Comment on above: Anemia of chronic re nal failure, stage 4 (severe) (HCC) (Primary Dx); 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 loss; MDS (myelodysplastic syndrome) (HCC) Start: 10-25-2022 Patient encounter procedure Ccf Provider [facility] Start: 10-25-2022 End: 10-25-[address] DOCTOR TOM Facility: Start: 10-24-2022 Telephone encounter Angle parmar RN Work Phone: Hematology/Oncology Comment on above: Care Coordination (C BC Results; Transfusion) Start: 10-23-2022 End: 10-23-2022 ambulatory FLASH PEARL Facility:[facility] Start: 10-23-2022 End: 10-23-2022 ambulatory [facility] [place] Work Phone: Hematology/Oncology Comment on above: MDS (myelodysplastic syndrome) (HCC) (Primary Dx) Start: 10-17-2022 Patient encounter procedure Ccf Provider [facility] Start: 10-17-2022 Telephone encounter Angle parmar RN Work Phone: Hematology/Oncology Comment on above: Care Coordination (T ransfusion Orders) Start: 10-16-2022 End: 10-16-2022 ambulatory FLASH PEARL Facility:[facility] Start: 10-16-2022 End: 10-16-2022 ambulatory [facility] [place] Work Phone: Hematology/Oncology Comment on above: MDS (myelodysplastic syndrome) (HCC) (Primary Dx); Anemia of chronic renal failure, stage 4 (severe) (HCC) Start: 10-16-2022 Patient encounter procedure [facility]cf Provider [facility] Start: 10-15-2022 End: 10-15-2022 ambulatory FLASH PEARL Facility:[facility] Start: 10-15-2022 End: 10-15-2022 ambulatory Elysia Esposito MD Work Phone: Hematology/Oncology Comment on above: MDS (myelodysplastic syndrome) (HCC) (Primary Dx); Anemia, unspecified type Start: 10-15-2022 End: 10-15-2022 Patient encounter procedure Elysia Esposito MD Work Phone: [facility] Start: 10-09-2022 End: 10-09-2022 ambulatory ASHER HUMMEL Facility:[facility] Start: 10-09-2022 End: 10-09-2022 ambulatory Chair 19 Roman Work Phone: Hematology/Oncology Comment on above: MDS (myelodysplastic syndrome) (HCC) (Primary Dx); Anemia of chronic renal failure, stage 4 (severe) (HCC); 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 loss Start: 10-03-2022 Patient encounter procedure [facility]cf Provider [facility] Department Start: 10-02-2022 End: 10-02-2022 ambulatory FLASH PEARL Facility:[facility] Start: 10-02-2022 Telephone encounter Asher frances MD Work Phone: Cancer [facility] Comment on above: Future Appointment Start: 09-25-2022 End: 10-17-[address] [facility] Facility: Start: 09-25-2022 End: 09-25-2022 ambulatory FLASH PEARL Facility:[facility] Start: 09-25-2022 Telephone encounter Angle parmar RN Work Phone: Hematology/Oncology Comment on above: Care Coordination (C BC Results; Transfusion) Start: 09-18-2022 End: 09-18-2022 ambulatory Chair 17 [...] renal failure, stage 4 (severe) (HCC) Start: 09-12-2022 Patient encounter procedure [facility]cf Provider [facility] Start: 09-11-2022 End: 09-11-2022 ambulatory FLASH PEARL Facility:[facility] Start: 09-11-2022 Telephone encounter Angle parmar RN Work Phone: Hematology/Oncology Comment on above: Care Coordination (C BC Results) Start: 09-05-2022 End: 09-13-[address] DOCTOR TOM Facility: Start: 09-04-2022 End: 09-04-2022 ambulatory FLASH PEARL Facility:[facility] Start: 09-04-2022 Patient encounter procedure [facility]cf Provider [facility] Start: 09-04-2022 Telephone encounter Asher frances [...] Start: 08-27-2022 End: 08-27-2022 ambulatory FLASH PEARL Facility:[facility] Start: 08-26-2022 Telephone encounter Angle parmar RN Work Phone: Hematology/Oncology Comment on above: Care Coordination (M edication Authorization) Start: 08-22-2022 Patient encounter procedure [facility] Provider [facility] Department Start: 08-22-2022 Telephone encounter Angle parmar RN Work Phone: Hematology/Oncology Comment on above: Care Coordination (T ransfusion Question) Start: 08-21-2022 Telephone encounter Wilfred smith APRN.CNP Work Phone: [facility] Comment on above: Future Appointment Start: 08-21-2022 [...] End: 08-14-2022 Patient encounter procedure Wilfred Martinez APRN.CNP Work Phone: [facility] Start: 08-14-2022 Telephone encounter Wilfred smith APRN.CNP Work Phone: Cancer [facility] Comment on above: Future Appointment Care Coordination (O rder Request) Treatment Planning Start: 08-14-2022 End: 08-14-2022 ambulatory Chair Billy Owens Work Phone: Hematology/Oncology [...] Start: 08-08-2022 Patient encounter procedure Ccf Provider [facility] Start: 08-08-2022 End: 08-22-[address] [facility]IA [facility] Facility: Start: 08-07-2022 End: 08-07-2022 ambulatory Chair [...] Start: 07-23-2022 End: 07-23-2022 ambulatory ASHER HUMMEL Facility:[facility] Start: 07-23-2022 End: 07-23-2022 ambulatory Chair 17 [place] Work Phone: Hematology/Oncology Comment on above: Myelodysplastic synd sommer (HCC) (Primary Dx) MDS (myelodysplastic syndrome) (HCC) (Primary Dx); 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 transfusions; Anemia of chronic renal failure, stage 4 (severe) (HCC); Myelodysplastic syndrome (HCC) Start: 07-23-2022 End: 07-23-2022 Patient encounter procedure [facility] Provider [facility] Department Start: 07-23-2022 Telephone encounter Asher frances MD [facility] Comment on above: Transfusion Start: 07-18-2022 Telephone encounter Angle Kamara Hematology/Oncology Comment on above: Care Coordination (O xygen Question) Start: 07-16-2022 End: 07-16-2022 ambulatory FLASH PEARL Facility:[facility] Start: 07-16-2022 End: 07-16-2022 ambulatory Elysia Esposito MD Work Phone: Hematology/Oncology Comment on above: MDS (myelodysplastic syndrome) (HCC) (Primary Dx) Start: 07-16-2022 End: 07-16-2022 Patient encounter procedure Elysia Esposito MD Work Phone: [facility] Start: 07-15-2022 End: 07-16-2022 ambulatory ASHER HUMMEL Facility:[facility] Start: 07-15-2022 Telephone encounter Asher frances MD [facility]: [facility] Comment on above: Future Appointment Start: 07-15-2022 End: 07-15-2022 ambulatory Chair 19 Roman Work Phone: Hematology/Oncology [...] Start: 07-15-2022 End: 07-15-2022 Patient encounter procedure Asher Hummel MD Work Phone: [facility] Start: 07-11-2022 Telephone encounter Angle Kamara Hematology/Oncology Comment on above: Care Coordination (C BC Results) Start: 07-09-2022 End: 07-10-2022 ambulatory ASHER HUMMEL Facility:[facility] Start: 07-09-2022 End: 07-09-2022 ambulatory Chair Genaro Owens Work Phone: Hematology/Oncology Comment on above: Myelodysplastic synd sommer (HCC) (Primary Dx) Start: 07-09-2022 Patient encounter procedure [facility] Provider [facility] Department Start: 07-08-2022 End: 07-25-[address] RADHA SANDOVAL Facility: Start: 07-08-2022 End: 07-08-2022 ambulatory WILFRED MARTINEZ Facility:[facility] Start: 07-08-2022 End: 07-08-2022 ambulatory Radha [...] Phone: [facility] Start: 07-08-2022 Telephone encounter Radha calzada PA-C Work [facility]: [facility] Comment on above: Transfusion Start: 07-02-2022 End: 07-02-2022 ambulatory FLASH PEARL Facility:[facility] Start: 07-02-2022 End: 07-02-2022 ambulatory Chair 18 Roman Work Phone: Hematology/Oncology Comment on above: Myelodysplastic synd sommer (HCC) (Primary Dx) Start: 07-01-2022 End: 07-01-2022 ambulatory ASHER HUMMEL Facility:[facility] Start: 07-01-2022 End: 07-01-2022 ambulatory Asher [...] Start: 06-24-2022 End: 06-24-2022 ambulatory FLASH PEARL Facility:[facility] Start: 06-24-2022 End: 06-24-2022 ambulatory Chair [...] Start: 06-18-2022 End: 06-19-2022 ambulatory Chair 9 Roman Work Phone: Hematology/Oncology Comment on above: Myelodysplastic synd sommer (HCC) (Primary Dx) Start: 06-17-2022 End: 06-17-2022 Patient encounter procedure Asher Hummel MD Work Phone: [employer] Start: 06-17-2022 Telephone encounter Asher frances MD Work Phone: Cancer [facility] Comment on above: Future Appointment Start: 06-17-2022 End: 06-17-2022 ambulatory FLASH PEARL Facility:[facility] Start: 06-17-2022 End: 06-17-2022 ambulatory Asher Hummel MD Work Phone: Hematology/Oncology Comment on above: Myelodysplastic synd sommer (HCC) (Primary Dx); 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 transfusions; CRF (chronic renal failure), stage 4 (severe) (HCC); CKD (chronic kidney disease) stage 4, GFR 15-29 ml/min (HCC) Start: 06-11-2022 End: 06-12-2022 ambulatory Chair 18 Roman Work Phone: Hematology/Oncology Comment on above: Myelodysplastic synd sommer (HCC) (Primary Dx) Start: 06-10-2022 End: 06-11-2022 ambulatory Chair 17 Roman Work Phone: Hematology/Oncology [...] End: 06-10-2022 Patient encounter procedure [facility]cf Provider [facility] Start: 06-07-2022 Telephone encounter Asher frances MD Work Phone: Hematology/Oncology Comment on above: Critical Results Start: 06-04-2022 Patient encounter procedure Ccf Provider [facility] Start: 06-04-2022 End: 06-26-[address] DOCTOR TAYLOR Facility: Start: 06-03-2022 End: 06-03-2022 ambulatory ASHER HUMMEL Facility:[facility] Start: 06-03-2022 Telephone encounter Asher frances MD Work Phone: Cancer [facility] Comment on above: Future Appointment Start: 06-03-2022 [...] Dx) Start: 05-27-2022 End: 05-28-2022 ambulatory Chair 17 Roman Work Phone: Hematology/Oncology [...] Post Treatment Call) Start: 05-23-[address] DOCTOR TOM Facility : Start: 05-21-2022 Patient encounter procedure [facility]cf Provider [facility] Start: 05-21-2022 End: 05-21-2022 ambulatory ASHER HUMMEL Facility:[facility] Start: 05-21-2022 End: 05-21-2022 ambulatory Chair [...] Asher Hummel MD Work Phone: [facility] Start: 05-20-2022 Telephone encounter Asher frances MD Work [facility] Comment on above: Future Appointment Care Coordination (A ntiemetics) Start: 05-14-2022 Telephone encounter Angle Kamara Hematology/Oncology Comment on above: Care Coordination (T reatment Planning) Start: 05-13-2022 End: 05-14-2022 ambulatory ASHER HUMMEL Facility:[facility] Start: 05-13-2022 End: 05-13-2022 ambulatory [facility] [place] Work Phone: Hematology/Oncology Comment on above: CRF (chronic renal f ailure), stage 4 (severe) (HCC) (Primary Dx); Anemia of chronic renal failure, stage 4 (severe) (HCC); 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 loss; CKD (chronic kidney disease) stage 4, GFR 15-29 ml/min (HCC); Myelodysplastic syndrome (HCC) Start: 05-07-2022 Patient encounter procedure [facility] Provider [facility] Start: 05-07-2022 End: 05-24-[address] DOCTOR TOM Facility: Start: 05-06-2022 End: 05-06-2022 ambulatory FLASH PEARL Facility:[facility] Start: 05-06-2022 End: 05-06-2022 ambulatory Lab/Port [...] encounter Asher frances MD Work Phone[facility] Comment on above: Transfusion Start: 04-29-2022 Telephone [...] encounter procedure Asher Hummel MD Work Phone: [facility] Start: 04-25-2022 End: 04-25-2022 Patient encounter procedure [facility] Provider [facility] Start: 04-25-2022 End: 04-25-2022 ambulatory ASHER HUMMEL Facility:[facility] Start: 04-25-2022 End: 04-25-2022 ambulatory Asher Hummel MD Work Phone: Hematology/Oncology Comment on above: Myelodysplastic synd sommer (HCC) (Primary Dx); CRF (chronic renal failure), stage 4 (severe) (HCC) Start: 04-23-2022 Telephone encounter Radha calzada PA-C Work Phone: Hematology/Oncology Comment on above: Patient Update Start: 04-22-2022 End: 04-22-2022 ambulatory ASHER HUMMEL Facility:[facility] Start: 04-22-2022 End: 04-23-[address] RADHA SANDOVAL Facility: Start: 04-18-2022 End: 04-18-2022 ambulatory ASHER HUMMEL Facility:[facility] Start: 04-18-2022 End: 04-18-2022 ambulatory Elysia Esposito MD Work Phone: Hematology/Oncology Comment on above: MDS (myelodysplastic syndrome) (HCC) (Primary Dx) Start: 04-18-2022 End: 04-18-2022 Patient encounter procedure Elysia Esposito MD Work Phone: [facility] Start: 04-15-2022 End: 04-15-2022 ambulatory ASHER HUMMEL Facility:[facility] Start: 04-15-2022 End: 04-15-2022 ambulatory [facility] [place] Work Phone: Hematology/Oncology Comment on above: Malignant neoplasm o f prostate (HCC) (Primary Dx) Start: 04-15-2022 Telephone encounter Asher frances MD Work Phone: Hematology/Oncology Comment on above: Results (CBC/) Start: 04-08-2022 End: 04-09-2022 ambulatory ASHER HUMMEL Facility:[facility] Start: 04-08-2022 End: 04-08-2022 ambulatory Lab[facility] [place] Work Phone: Hematology/Oncology [...] End: 04-08-2022 Patient encounter procedure [facility] Provider [facility] Department Start: 04-03-2022 End: 04-04-[address] WILFRED MARTINEZ Facility: Start: 04-03-2022 Patient encounter procedure [facility]cf Provider [facility] Start: 04-03-2022 Telephone encounter Fide Fields Hematology/Oncology Comment on above: Results Start: 04-02-2022 End: 04-02-2022 ambulatory ASHER HUMMEL Facility:[facility] Start: 04-02-2022 Telephone encounter Asher frances MD [facility] Comment on above: Results Future Appointment Start: 03-25-2022 End: 03-26-2022 ambulatory Lab/[facility] [place] Work Phone: Hematology/Oncology Comment on above: CRF [...] (R eferral) Start: 03-18-2022 End: 03-18-2022 [facility] Start: 03-18-2022 Telephone encounter Asher frances MD Work Phone: [facility] Comment on above: Care Coordination (L ab results/) Start: 03-15-2022 End: 03-15-2022 ambulatory Chair 17 Roman Work Phone: Hematology/Oncology Comment on above: Myelodysplastic synd sommer (HCC) (Primary Dx) Start: 03-14-2022 Telephone encounter Angle parmar RN Work Phone: Hematology/Oncology Comment on above: Care Coordination (A ppointment) Start: 03-14-2022 End: 03-15-2022 ambulatory Chair 17 [place] Work Phone: Hematology/Oncology Comment on above: Myelodysplastic synd sommer (HCC) (Primary Dx) Start: 03-13-2022 End: 03-13-2022 [facility] Start: 03-13-2022 End: 03-13-2022 ambulatory Chair 17 Roman Work Phone: Hematology/Oncology Comment on above: Myelodysplastic synd sommer (HCC) (Primary Dx) Start: 03-12-2022 End: 03-13-2022 ambulatory ASHER HUMMEL Facility:[facility] Start: 03-12-2022 Patient encounter procedure Ccf Provider [facility] Start: 03-11-2022 End: 03-12-2022 ambulatory ASHER HUMMEL Facility:[facility] Start: 03-11-2022 End: 03-11-2022 ambulatory Chair Elena Owens Work Phone: Hematology/Oncology [...] Work Phone: [facility] Start: 03-11-2022 Telephone encounter sAher frances MD Work Phone: [facility] Comment on above: Future Appointment Start: 03-04-2022 End: 03-04-2022 ambulatory FLASH PEARL Facility:[facility] Start: 02-28-2022 End: 03-27-[address] DOCTOR TOM Facility: Start: 02-28-2022 End: 02-28-2022 ambulatory ASHER HUMMEL Facility:[facility] Start: 02-28-2022 Telephone encounter Asher frances MD Work Phone: Cancer Appts Comment on above: Transfusion Start: 02-25-2022 End: 02-25-2022 ambulatory ASHER HUMMEL Facility:[facility] Start: 02-25-2022 End: 02-25-2022 ambulatory Lab/Port [facility] Work Phone: Hematology/Oncology Comment on above: CRF (chronic renal f ailure), stage 4 (severe) (HCC) (Primary Dx); Anemia of chronic renal failure, stage 4 (severe) (HCC); 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 loss; CKD (chronic kidney disease) stage 4, GFR 15-29 ml/min (HCC); Myelodysplastic syndrome (HCC) Start: 02-18-2022 End: 02-18-2022 ambulatory FLASH PEARL Facility:[facility] Start: 02-15-2022 End: 02-15-2022 ambulatory Chair 17 Roman Work Phone: Hematology/Oncology Comment on above: Myelodysplastic synd sommer (HCC) (Primary Dx); CRF (chronic renal failure), stage 4 (severe) (HCC) Start: 02-14-2022 End: 02-14-2022 ambulatory Chair Blily Owens Work Phone: Hematology/Oncology Comment on above: [...] encounter procedure Radha Sandoval PA-C Work Phone: [employer] Start: 02-04-2022 End: 02-05-[address] NONE LISTED REQUEST Facility: Start: 02-04-2022 End: 02-04-2022 ambulatory ASHER ESTEPHANIE Facility:[facility] Start: 02-04-2022 Telephone encounter Asher frances MD Work Phone: Cancer Appts Comment on above: Future Appointment Care Coordination (C ritical Results) Start: 02-04-2022 End: 02-04-2022 ambulatory Lab/[facility] [place] Work Phone: Hematology/Oncology Comment on above: Anemia of chronic re nal failure, stage 4 (severe) (HCC) (Primary Dx) Start: 01-30-2022 End: 01-30-2022 ambulatory ASHER ESTEPHANIE Facility:[facility] Start: 01-30-2022 End: 01-30-2022 ambulatory Lab/[facility] Work Phone: Hematology/Oncology [...] (HCC) Start: 01-17-2022 End: 01-17-2022 ambulatory Chair Billy Owens Work Phone: Hematology/Oncology Comment on above: Myelodysplastic synd sommer (HCC) (Primary Dx) Start: 01-16-2022 End: 01-17-2022 ambulatory Chair 17 Roman Work Phone: Hematology/Oncology Comment on above: Myelodysplastic synd sommer (HCC) (Primary Dx) Start: 01-15-2022 End: 01-16-2022 ambulatory Chair 17 Roman Work Phone: Hematology/Oncology Comment on above: Myelodysplastic synd sommer (HCC) (Primary Dx) Start: 01-15-2022 Patient encounter procedure Ccf Provider [facility] Start: 01-14-2022 End: 01-14-2022 ambulatory ASHER HUMMEL Facility:[facility] Start: 01-14-2022 Telephone encounter Asher frances MD Work Phone: Cancer [facility] Comment on above: Future Appointment Lab Orders [...] encounter procedure Asher Hummel MD Work Phone: [employer] Start: 01-07-2022 End: 01-08-2022 ambulatory FLASH PEARL Facility:[facility] Start: 01-07-2022 End: 01-07-2022 Nursing evaluation of patient and report Ma Nurse Sam Katarina Work Phone: Hematology/Oncology Comment on above: Anemia of chronic re nal failure, stage 4 (severe) (HCC) (Primary Dx); 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 loss; Myelodysplastic syndrome (HCC) Start: 01-01-2022 Telephone encounter Miriam Elizabeth RN Hematology/Oncology Comment on above: B12 injections Start: 12-21-2021 End: 12-21-2021 ambulatory Chair 17 [place] Work Phone: Hematology/Oncology Comment on above: Myelodysplastic synd sommer (HCC) (Primary Dx) Start: 12-20-2021 End: 12-20-2021 ambulatory Chair 17 Roman Work Phone: Hematology/Oncology Comment on above: Myelodysplastic synd sommer (HCC) (Primary Dx) Start: 12-19-2021 End: 12-19-2021 ambulatory Chair 17 [place] Work Phone: Hematology/Oncology Comment on above: Myelodysplastic synd sommer (HCC) (Primary Dx) Start: 12-17-2021 End: 12-17-2021 ambulatory Chair 17 Roman Work Phone: Hematology/Oncology [...] encounter procedure Asher Hummel MD Work Phone: [employer] Start: 11-29-2021 End: 11-29-2021 ambulatory Asher Hummel [...] Evaluation and management of inpatient KELSEY RAMIREZ Facility:[facility] Start: 11-16-2021 Patient encounter procedure Ccf Provider [facility] Start: 11-16-2021 Telephone encounter Angle pamrar RN Work Phone: Hematology/Oncology Comment on above: [...] Start: 10-26-2021 Patient encounter procedure Ccf Provider [facility] Start: 10-25-2021 End: 10-25-2021 ambulatory Lab/Port Sam [...] End: 05-29-2020 Patient encounter procedure External Provider [facility] Start: 05-29-2020 Results Only External Provider Exter nal-NonCCF Start: 06-23-2018 End: 06-24-2018 Patient encounter procedure Evette Sheriff Facility:[facility] Start: 06-11-2018 End: 06-12-2018 Patient encounter procedure Evette Sheriff Facility:[facility] Start: 05-28-2018 End: 05-29-2018 Patient encounter procedure MYLENE ANDREW Facility:[facility] Procedures Date Procedure Procedure Detail Performing Clinician Start: 11-14-2022 Transfusion of Nonautologous Red Blood Cells into Peripheral Vein, Percutaneous Approach DR [facility] Start: 05-27-2022 CBC + DIFF Asher frances [...] on above: Performed By: #### [id number] ####[facility] [place] [address], [facility] Start: 11-01-2021 Blood count complete auto&auto difrntl wbc Asher Hummel MD Work Phone: Start: 05-29-2020 EXTERNAL IMAGING [employer] al Provider Start: 05-29-2020 End: 05-29-2020 EXTERNAL LAB External Provider Start: 05-29-2020 EXTERNAL PROCEDURE Exte rnal Provider Start: 10-23-2011 cysto/ud, bilateral RG Pyelogram Álvaro Barton Cataract care Álvaro Barotn Placement of stent i n cardiac conduit Álvaro Barton Comment on above: 2x Plan of Treatment Date Care Activity Detail Author Start: 11-20-2025 DIABETES SCREEN DIABETES SCREEN [facility] Start: 11-06-2025 DIABETES SCREEN DIABETES SCREEN [facility] Start: 10-30-2025 DIABETES SCREEN DIABETES SCREEN [facility] Start: 10-23-2025 DIABETES SCREEN DIABETES SCREEN [facility] Start: 10-16-2025 DIABETES SCREEN DIABETES SCREEN [facility] Start: 10-02-2025 DIABETES SCREEN DIABETES SCREEN [facility] Start: 09-25-2025 DIABETES SCREEN DIABETES SCREEN [facility] Start: 09-18-2025 DIABETES SCREEN DIABETES SCREEN [facility] Start: 09-11-2025 DIABETES SCREEN DIABETES SCREEN [facility] Start: 09-04-2025 DIABETES SCREEN DIABETES SCREEN [facility] Start: 08-28-2025 DIABETES SCREEN DIABETES SCREEN [facility] Start: 08-21-2025 DIABETES SCREEN DIABETES SCREEN [facility] Start: 08-14-2025 DIABETES SCREEN DIABETES SCREEN [facility] Start: 08-07-2025 DIABETES SCREEN DIABETES SCREEN [facility] Start: 07-30-2025 DIABETES SCREEN DIABETES SCREEN [facility] Start: 07-23-2025 DIABETES SCREEN DIABETES SCREEN [facility] Start: 07-15-2025 DIABETES SCREEN DIABETES SCREEN [facility] Start: 07-08-2025 DIABETES SCREEN DIABETES SCREEN [facility] Start: 07-01-2025 DIABETES SCREEN DI[facility] SCREEN [facility] Start: 11-15-2024 DIABETES SCREEN DIABETES SCREEN [facility] Start: 11-08-2024 DIABETES SCREEN DIABETES SCREEN [facility] Start: 11-01-2024 DIABETES SCREEN DIABETES SCREEN [facility] Start: 10-25-2024 DIABETES SCREEN DIABETES SCREEN [facility] Start: 10-11-2024 DIABETES SCREEN DIABETES SCREEN [facility] Start: 09-03-2024 DIABETES SCREEN DIABETES SCREEN [facility] Start: 08-14-2022 End: 10-14-2022 Hematocrit [Volume Fraction] of Blood HEMATOCRIT (HCT) Lab Routine Myelodysplastic syndrome (HCC) Expected: 08/14/2022, Expires: 10/14/2022 [facility] Work Phone: Comment on above: Expected: 08/14/2022, Expires: 3 Start: 08-14-2022 End: 10-14-2022 Hemoglobin [Mass/volume] in Blood HEMOGLOBIN (HGB) Lab Routine Myelodysplastic syndrome (HCC) Expected: 08/14/2022, Expires: 10/14/2022 [facility] Work Phone: Comment on above: Expected: 08/14/2022, Expires: 3 Start: 08-13-2022 End: 10-13-2022 CBC W Auto Differential panel - Blood CBC + DIFF Lab Routine 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 loss Expected: 08/13/2022, Expires: 10/13/2022 [facility] Work Phone: Comment on above: Expected: 08/13/2022, Expires: 3 Start: 08-13-2022 End: 10-13-2022 Comprehensive metabolic 2000 panel - Serum or Plasma COMP METABOLIC PANEL Lab Routine 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 loss Expected: 08/13/2022, Expires: 10/13/2022 [facility] Work Phone: Comment on above: Expected: 08/13/2022, Expires: 3 Start: 08-13-2022 End: 10-13-2022 Lactate dehydrogenase [Enzymatic activity/volume] in Serum or Plasma LD LACTATE DEHYDRO Lab Routine 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 loss Expected: 08/13/2022, Expires: 10/13/2022 [facility] Work Phone: Comment on above: Expected: 08/13/2022, Expires: 3 Start: 07-30-2022 End: 09-29-2022 CBC W Auto Differential panel - Blood CBC + DIFF Lab Routine MDS (myelodysplastic syndrome) (HCC) Anemia of chronic renal failure, stage 4 (severe) (HCC) CRF (chronic renal failure), stage 4 (severe) (HCC) Expected: 07/30/2022, Expires: 09/29/2022 [facility] Work Phone: Comment on above: Expected: 07/30/2022, Expires: 3 Start: 07-30-2022 End: 09-29-2022 Comprehensive metabolic 2000 panel - Serum or Plasma COMP METABOLIC PANEL Lab Routine MDS (myelodysplastic syndrome) (HCC) Anemia of chronic renal failure, stage 4 (severe) (HCC) CRF (chronic renal failure), stage 4 (severe) (HCC) Expected: 07/30/2022, Expires: 09/29/2022 [facility] Work Phone: Comment on above: Expected: 07/30/2022, Expires: 3 Start: 07-28-2022 ADVANCE DIRECTIVE DISCUSSION ADVANCE DIRECTIVE DISCUSSION [facility] Start: 07-28-2022 DEPRESSION ASSESSMENT DEPRESSION ASSESSMENT [facility] Start: 07-08-2022 End: 09-07-2022 CBC W Auto Differential panel - Blood CBC + DIFF Lab Routine MDS (myelodysplastic syndrome) (HCC) CRF (chronic renal failure), stage 4 (severe) (HCC) Expected: 07/08/2022, Expires: 09/07/2022 [facility] Work Phone: Comment on above: Expected: 07/08/2022, Expires: 3 Start: 07-08-2022 End: 09-07-2022 Comprehensive metabolic 2000 panel - Serum or Plasma COMP METABOLIC PANEL Lab Routine MDS (myelodysplastic syndrome) (HCC) CRF (chronic renal failure), stage 4 (severe) (HCC) Expected: 07/08/2022, Expires: 09/07/2022 [facility] Work Phone: Comment on above: Expected: 07/08/2022, Expires: 3 Start: 06-24-2022 End: 08-24-2022 CBC W Auto Differential panel - Blood CBC + DIFF Lab Routine MDS (myelodysplastic syndrome) (HCC) CRF (chronic renal failure), stage 4 (severe) (HCC) Anemia of chronic renal failure, stage 4 (severe) (HCC) Expected: 06/24/2022, Expires: 08/24/2022 [facility] Work Phone: Comment on above: Expected: 06/24/2022, Expires: 3 Start: 06-24-2022 End: 08-24-2022 Comprehensive metabolic 2000 panel - Serum or Plasma COMP METABOLIC PANEL Lab Routine MDS (myelodysplastic syndrome) (HCC) CRF (chronic renal failure), stage 4 (severe) (HCC) Anemia of chronic renal failure, stage 4 (severe) (HCC) Expected: 06/24/2022, Expires: 08/24/2022 [facility] Work Phone: Comment on above: Expected: 06/24/2022, Expires: 3 Start: 06-10-2022 End: 08-10-2022 CBC W Auto Differential panel - Blood CBC + DIFF Lab Routine MDS (myelodysplastic syndrome) (HCC) Expected: 06/10/2022, Expires: 08/10/2022 [facility] Work Phone: Comment on above: Expected: 06/10/2022, Expires: 3 Start: 06-10-2022 End: 08-10-2022 Comprehensive metabolic 2000 panel - Serum or Plasma COMP METABOLIC PANEL Lab Routine MDS (myelodysplastic syndrome) (HCC) Expected: 06/10/2022, Expires: 08/10/2022 [facility] Work Phone: Comment on above: Expected: 06/10/2022, Expires: 3 Start: 04-25-2022 End: 06-25-2022 MISC SEND OUT TST 1 MISC SEND OUT TST 1 Lab Routine Myelodysplastic syndrome (HCC) Expected: 04/25/2022, Expires: 06/25/2022 [facility] Work Phone: Comment on above: Expected: 04/25/2022, Expires: 2 Start: 03-28-2022 Influenza vaccination INFLUENZA (#1) [facility] Start: 02-11-2022 End: 04-13-2022 CBC W Auto Differential panel - Blood CBC + DIFF Lab Routine Anemia of chronic renal failure, stage 4 (severe) (HCC) Myelodysplastic syndrome (HCC) Expected: 02/11/2022, Expires: 04/13/2022 [facility] Work Phone: Comment on above: Expected: 02/11/2022, Expires: 2 Start: 02-11-2022 End: 04-13-2022 Comprehensive metabolic 2000 panel - Serum or Plasma COMP METABOLIC PANEL Lab Routine Anemia of chronic renal failure, stage 4 (severe) (HCC) Myelodysplastic syndrome (HCC) Expected: 02/11/2022, Expires: 04/13/2022 [facility] Work Phone: Comment on above: Expected: 02/11/2022, Expires: 2 Start: 12-02-2021 End: 11-29-2022 CBC W Auto Differential panel - Blood CBC + DIFF Lab Routine Myelodysplastic syndrome (HCC) CRF (chronic renal failure), stage 4 (severe) (HCC) Anemia of chronic renal failure, stage 4 (severe) (HCC) 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 transfusions Expected: 12/02/2021 (Approximate), Expires: 11/29/2022 [facility] Work Phone: Comment on above: Expected: 12/02/2021 (Approximate), Expi res: 11/29/2022 Start: 12-02-2021 End: 11-29-2022 Comprehensive metabolic 2000 panel - Serum or Plasma COMP METABOLIC PANEL Lab Routine Myelodysplastic syndrome (HCC) CRF (chronic renal failure), stage 4 (severe) (HCC) Anemia of chronic renal failure, stage 4 (severe) (HCC) 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 transfusions Expected: 12/02/2021 (Approximate), Expires: 11/29/2022 [facility] Work Phone: Comment on above: Expected: 12/02/2021 (Approximate), Expi res: 11/29/2022 Start: 07-28-2021 ADVANCE DIRECTIVE DISCUSSION ADVANCE DIRECTIVE DISCUSSION [facility] Start: 07-28-2021 DEPRESSION ASSESSMENT DEPRESSION ASSESSMENT [facility] Start: 03-28-2020 Influenza vaccination INFLUENZA (#1) [facility] Start: 05-08-2015 PNEUMOCOCCAL: 65+ (3 - PCV) PNEUMOCOCCAL: 65+ (3 - PCV) [facility] Start: 06-27-2008 DIABETES SCREEN DIABETES SCREEN [facility] Start: 07-13-2007 PNEUMOVAX AGE 65 AND OVER WITH 5YR LOOKBACK (#1) PNEUMOVAX AGE 65 AND OVER WITH 5YR LOOKBACK (#1) [facility] Start: 06-27-2006 Hepatitis B surface antibody level LDL CHOLESTEROL [facility] Start: 12-06-2003 ADVANCE DIRECTIVE DISCUSSION ADVANCE DIRECTIVE DISCUSSION [facility] Start: 1988 SHINGRIX VACCINE (1 of 2) SHINGRIX VACCINE (1 of 2) [facility] Start: 1957 SHINGRIX VACCINE (1 of 2) SHINGRIX VACCINE (1 of 2) [facility] Start: 1957 Urine microalbumin profile DTAP,TDAP,TD (1 - Tdap) [facility] Start: 1948 3 comp foot exam completed DIABETIC FOOT EXAM [facility] Start: 1948 Hepatitis B screening URINE ALBUMIN:CREATININE RATIO [facility] Start: 1948 Hepatitis C antibody, confirmatory test DILATED RETINAL EXAM [facility] Start: 12-06-1943 Hemoglobin A1c/Hemoglobin.total in Blood HBA1C [facility] BONE MARROW ANALYSIS [facility] Work Phone: Comment on above: Ordered: 04/25/2022 BONE MARROW CHROMOSO ME ANAL [facility] Work Phone: Comment on above: Ordered: 04/25/2022 CBC W Auto Different ial panel - Blood CBC + DIFF Lab Routine Myelodysplastic syndrome (HCC) CRF (chronic renal failure), stage 4 (severe) (HCC) Anemia of chronic renal failure, stage 4 (severe) (HCC) 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 transfusions 01/21/2022 1:47 PM EDT [facility] Work Phone: CBC W Auto Different ial panel - Blood CBC + DIFF Lab Routine Myelodysplastic syndrome (HCC) CRF (chronic renal failure), stage 4 (severe) (HCC) 02/15/2022 1:31 PM EDT [facility] Work Phone: CBC W Auto Different ial panel - Blood CBC + DIFF Lab Routine Myelodysplastic syndrome (HCC) CRF (chronic renal failure), stage 4 (severe) (HCC) Ordered: 04/25/2022 [facility] Work Phone: Comment on above: Ordered: 04/25/2022 CBC W Auto Different ial panel - Blood CBC + DIFF Lab Routine Myelodysplastic syndrome (HCC) CRF (chronic renal failure), stage 4 (severe) (HCC) 05/27/2022 1:47 PM EDT [facility] Work Phone: End: 08-13-2023 CBC W Auto Differential panel - Blood CBC + DIFF Lab Routine 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 loss MDS (myelodysplastic syndrome) (HCC) Anemia of chronic renal failure, stage 4 (severe) (HCC) 2x per week for 100 Occurrences starting 08/13/2022 until 08/13/2023 [facility] Work Phone: Comment on above: 2x per week for 100 Occurrences starting 08/13/2022 until 08/13/2023 End: 08-13-2023 Comprehensive metabolic 2000 panel - Serum or Plasma COMP METABOLIC PANEL Lab Routine 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 loss MDS (myelodysplastic syndrome) (HCC) Anemia of chronic renal failure, stage 4 (severe) (HCC) 2x per week for 100 Occurrences starting 08/13/2022 until 08/13/2023 [facility] Work Phone: Comment on above: 2x per week for 100 Occurrences starting 08/13/2022 until 08/13/2023 DNA EXTRACTION BONE MARROW (BUFFY COAT) [facility] Work Phone: Comment on above: Ordered: 04/25/2022 FLOW CYTOMETRY BONE MARROW HOLD (BMHOLD) FLOW CYTOMETRY BONE MARROW HOLD (BMHOLD) Lab Routine Myelodysplastic syndrome (HCC) CRF (chronic renal failure), stage 4 (severe) (HCC) Ordered: 04/25/2022 [facility] Work Phone: Comment on above: Ordered: 04/25/2022 FLT3 ITD HN BONE MARROW [facility] Work Phone: Comment on above: Ordered: 04/25/2022 MYELOID NGS PANEL NATALIE NE MARROW [facility] Work Phone: Comment on above: Ordered: 04/25/2022 MYELOID NGS PANEL NATALIE NE MARROW [facility] Work Phone: Comment on above: Ordered: 04/25/2022 MYELOPROLIFERATIVE NEOPLASM PANEL MARROW MYELOPROLIFERATIVE NEOPLASM PANEL MARROW Lab Routine Myelodysplastic syndrome (HCC) CRF (chronic renal failure), stage 4 (severe) (HCC) Ordered: 04/25/2022 [facility] Work Phone: Comment on above: Ordered: 04/25/2022 [facility] Immunizations Immunization Date Immunization Notes Care Provider Fa jayna 10-24-2022 influenza virus vacc ine, unspecified formulation Álvaro Barton [facility] 05-20-2022 influenza, high-dose , quadrivalent vaccine (FLUZONE HIGH DOSE QUADRIVALENT) Asher Hummel MD Work Phone: [facility] 06-29-2021 SARS-CoV-2 (COVID-19 ) [id number] vaccine Álvaro Barton [facility] 05-02-2021 influenza virus vacc ine, unspecified formulation Álvaro Barton [facility] 05-02-2021 influenza, high-dose , quadrivalent vaccine (FLUZONE HIGH DOSE QUADRIVALENT) Chair Owens Work Phone: [facility] 09-25-2020 COVID-19 vaccine, fu ll dose (MODERNA) Chair Owens Work Phone: [facility] 09-16-2020 COVID-19 vaccine, ag e 12+ yr (PFIZER-BIONTECH - PURPLE TOP) Chair Owens Work Phone: [facility] 09-14-2020 COVID-19 vaccine, fu ll dose (MODERNA) Chair Owens Work Phone: [facility] 08-28-2020 COVID-19 vaccine, fu ll dose (MODERNA) Chair Owens Work Phone: [facility] 08-25-2020 COVID-19 vaccine, ag e 12+ yr (PFIZER-BIONTECH - PURPLE TOP) Chair Owens Work Phone: [facility] 08-17-2020 COVID-19 vaccine, fu ll dose (MODERNA) Chair Owens Work Phone: [facility] 06-23-2019 influenza virus vacc ine, unspecified formulation Álvaro Barton [facility] 06-23-2019 Seasonal, quadrivale nt, recombinant, injectable influenza vaccine, preservative free Chair Roman Work Phone: [facility] 05-10-2019 influenza virus vacc ine, unspecified formulation Álvaro Barton [facility] 05-10-2019 influenza, seasonal, injectable Chair Roman Work Phone: [facility] 05-28-2018 influenza virus vacc ine, unspecified formulation Álvaro Barton [facility] 05-28-2018 influenza, high dose seasonal, preservative-free Chair [place] Work Phone: [facility] 06-18-2015 influenza virus vacc ine, unspecified formulation Álvaro Barton [facility] 06-18-2015 influenza, seasonal, injectable, preservative free Chair [place] Work Phone: [facility] 05-08-2014 influenza virus vacc ine, unspecified formulation Álvaro Barton [facility] 05-08-2014 influenza, seasonal, injectable, preservative free Chair [place] Work Phone: [facility] 05-08-2014 pneumococcal polysaccharide vaccine, 23 valent Chair [place] Work Phone: [facility] 05-23-2013 influenza virus vacc ine, unspecified formulation Álvaro Barton [facility] 05-23-2013 influenza, seasonal, injectable Chair [place] Work Phone: [facility] 06-27-2005 influenza virus vacc ine, unspecified formulation External Provider [facility] Work Phone: 07-13-2002 influenza virus vacc ine, unspecified formulation External Provider [facility] 07-13-2002 pneumococcal polysaccharide vaccine, 23 valent External Provider [facility] Payers Date Payer Category Payer Medicare [id number] 2023 Private Health Insurance [id number] 2022 Medicare [id number] 2021 Medicare MMO MEDICARE MMO MEDADVANTAGE PPO [id number] 2021-Present [phone] [address] [place] [address] PPO [id number] 2021 Medicare MMO MEDICARE MMO MEDADVANTAGE PPO [id number] 2021-Present [phone] [address] [place] [address] PPO [id number] 2019 Medicare [employer] MEDICARE A ETNA MEDICARE PPO [id number] 2019- PPO [id number] 2017 Private Health Insurance 1959 Unknown [id number] 1938 Unknown [id number] 2.16.840.1.678692.3.579 .2.196 1938 Unknown [id number] 2.16.840.1.576167.3.579 .2.196 1938 Unknown [id number] 2.16.840.1.958592.3.579 .2.196 1938 Unknown [id number] 2.16.840.1.855779.3.579 .2.196 1938 Unknown [id number] 2.16.840.1.449752.3.579 .2.647 1938 Unknown [id number] 2.16.840.1.616103.3.579 .2.593 1938 Unknown [id number] 2.16.840.1.250527.3.579 .2.593 1938 Unknown [id number] 2.16.840.1.420707.3.579 .2.593 1938 Unknown [id number] 2.16.840.1.188492.3.579 .2.593 1938 Unknown [id number] 2.16.840.1.843193.3.579 .2.593 1938 Unknown [id number] 2.16.840.1.454962.3.579 .2.593 1938 Unknown [id number] 2.16.840.1.274314.3.579 .2.593 1938 Unknown [id number] 2.16.840.1.270482.3.579 .2.59 1938 Unknown [id number] 2.16.840.1.870067.3.579 .2.593 1938 Unknown [id number] 2.16.840.1.389627.3.579 .2.59 1938 Unknown [id number] 2.16.840.1.241242.3.579 .2.59 1938 Unknown [id number] 2.16.840.1.543804.3.579 .2.59 1938 Unknown [id number] 2.16.840.1.944309.3.579 .2.593 1938 Unknown [id number] 2.16.840.1.376820.3.579 .2.593 1938 Unknown [id number] 2.16.840.1.398839.3.579 .2.593 1938 Unknown [id number] 2.16.840.1.519277.3.579 .2.593 1938 Unknown [id number] 2.16.840.1.330709.3.579 .2.59 1938 Unknown [id number] 2.16.840.1.360141.3.579 .2.593 1938 Unknown [id number] 2.16.840.1.275777.3.579 .2.593 1938 Unknown [id number] 2.16.840.1.019765.3.579 .2. 1938 Unknown [id number] 2.16.840.1.732632.3.579 .2. 1938 Unknown [id number] 2.16.840.1.883939.3.579 .2. 1938 Unknown [id number] 2.16.840.1.102703.3.579 .2. 1938 Unknown [id number] 2.16.840.1.160678.3.579 .2 1938 Unknown [id number] 2.16.840.1.638994.3.579 .2 1938 Unknown [id number] 2.16.840.1.235665.3.579 .2 1938 Unknown [id number] 2.16.840.1.680035.3.579 .2 1938 Unknown [id number] 2.16.840.1.746913.3.579 .2 1938 Unknown [id number] 2.16.840.1.227097.3.579 .2. 1938 Unknown [id number] 2.16.840.1.353227.3.579 .2. 1938 Unknown [id number] 2.16.840.1.387582.3.579 .2. 1938 Unknown [id number] 2.16.840.1.270487.3.579 .2 1938 Unknown [id number] 2.16.840.1.042445.3.579 .2 1938 Unknown [id number] 2.16.840.1.810257.3.579 .21939 Unknown [id number] 2.16.840.1.849288.3.579 .2.727 1938 Unknown [id number] 2.16.840.1.363580.3.579 .2.727 1938 Unknown [id number] 2.16.840.1.413535.3.579 .2.727 1938 Unknown [id number] 2.16.840.1.085259.3.579 .2.72 1938 Unknown [id number] 2.16.840.1.888343.3.579 .2. 1938 Unknown [id number] 2.16.840.1.882260.3.579 .2. 1938 Unknown [id number] 2.16.840.1.193747.3.579 .2 1938 Unknown [id number] 2.16.840.1.983695.3.579 .2.727 Social History Date Type Detail Facility Tobacco smoking stat [facility] Unknown if ever smoked [facility] Start: 1940 Sex Assigned At Not on file [facility] Exposure to SARS-CoV -2 (event) Unable to assess [facility] Start: 05-29-2020 End: 03-10-2023 Tobacco smoking status OKIS Ex-smoker [facility] Comment on above: quit 1993 End: 07-28-1994 History of tobacco use Current smoker [facility] End: 07-28-1994 History of tobacco use Pipe Smoker [facility] Start: 05-29-2020 End: 03-11-2022 Tobacco use and exposure Smokeless tobacco non-user [facility] Start: 10-15-2021 End: 11-20-2022 Alcohol intake Ex-drinker (finding) [facility] Start: 10-05-2021 End: 07-01-2022 Exposure to SARS-CoV-2 (event) Not sure [facility] History of tobacco use Passive smoker [facility] Sex Assigned At Male [facility] Medical Equipment Procedure Code Equipment Code Equipment Origin al Text Equipment Identifier Dates Start: 04-07-2020 See Instructions , One touch ultra blue test strips Use as directed to test sugars once a day Start: 03-10-2023 Clinical Notes 10-15-2021 to 09-29-2023 Telephone Encounter - Samira Sheldon MA - 12/31/2022 10:02 AM EDTTelephone Encounter - Angle Kamara RN - 11/20/2022 4:43 PM EDTTelephone Encounter - Ada Perez - 11/20/2022 4:28 PM EDT Note Date & Type Note Facility 09-29-2023 Note [place] Cardiology - [facility] Subjective Sandip Broussard is a 82 y.o. year old male patient being seen for 1 mo follow up CHF. Had labs drawn this afternoon. Dr. Gomez instructed patient to hold bumex over the weekend, which he did. He's back to original dose of potassium, which is 20mEq daily. states he also eats 1 banana a day. Patient Active Problem List Diagnosis Arteriolar nephrosclerosis [...] function study Pulmonary HTN (CMS/HCC) Superficial folliculitis Chronic respiratory failure with hypoxia (CMS/HCC) Drug-induced immunodeficiency (CMS/HCC) Hospital discharge follow-up Family History Problem Relation Name Age of [...] the echocardiogram performed in June 2020 at [facility]. Previously he sustained GI bleeding and underwent investigation of the [facility]. He recovered from that. He was started [...] procedures. On 11/18/2021 he was admitted to [facility] with decompensated heart failure. In addition he was found to have type II TX. He underwent diuresis. Right heart catheterization on 11/21/2021 showed elevated filling pressures. Transesophageal echocardiogram showed moderately reduced systolic function with an ejection fraction of 30 to 35% and severe mitral regurgitation. Since last visit he has been doing about the same. He continues to be on oxygen therapy continuously. 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 this was stopped. He is currently under treatment with a new manager med surg and his anemia is being managed by [...] She is continuing his medications as prescribed. In June 2023 he was admi (more content not included)... [facility] 09-22-2023 Note Chief Complaint Re-Referral *possible chronic cath HPI Staff Referral for BPH by Dr. Barton. Pt last saw DLS in our office 09/04/21 due to BPH & Penile lesion. At last office visit it was noted that pt had stopped taking Terazosin 5mg QD per his PCP. However, pt's states this is not true. Per pt's , pt is here due to needing Terazosin script. States pt can not void without Terazosin therapy. Also states he has not stopped taking the Terazosin. Terazosin last filled by Dr Barton 08/29/22. Per , Dr Barton prefers script to be filled by Urologist and not him. Denies current pain and burning as well as visible blood in urine. Getting up 3-4x/night to void. Voiding q3-4hrs during the day. Denies hesitancy, does have unsteady stream at times. Feels empty, takes a little time. PVR 28ml History of Present Illness Tests reviewed: reviewed UA, referral records, PVR I have reviewed the previous health record information and history for this patient from Dr. Mohan and external providers. I have reviewed and verified the staff HPI to be accurate for this encounter. Review of Systems PHQ Score Initial Depression Screen Score: 0 SCORE ROS - Provider Constitutional: denies weight loss, denies hot flashes. Eyes: denies eye problems. Gastrointestinal: denies nausea, denies vomiting. Cardiovascular: denies chest pain or angina. Integumentary: no dryness Musculoskeletal: denies musculoskeletal symptoms. ENMT: denies otolaryngeal symptoms. Respiratory: no shortness of breath. Heme/Lymph: denies easy bleeding tendency, denies easy bruising tendency. Psychiatric: no confusion, no anxiety. Genitourinary: See HPI. Physical Exam Vitals & Measurements HT: 67 in HT: 170 cm WT: 90 kg WT: 198 lb BMI: 31.14 General Appearance: alert, no distress, well nourished, well developed male. Genitourinary: normal scrotum, normal testes, normal urethra, normal epididymis, normal vas deferens/spermatic cord. 2cm inclusion cyst on L penile foreskin Flank Pain: none. Bladder: nonpalpable. Assessment/Plan Prior Dr. Mohan pt re-referred by Dr. Barton. 1. Incomplete bladder emptying (R33.9: Retention of urine, unspecified) UA today negative for blood and infection. Taking Terazosin 5mg qd. Does not stand to void, voids in a bedpan. Denies hx of infections. Feels he empties completely. PVR today 228 mL. Advised pt he is not emptying completely but only is acutely retaining urine. Has low BP (typically runs 115/70) which pt's family member reports is preferred by his learning administrator due to hx of heart failure. Discussed chronic catheter placement given limited mobility and low BPs to help prevent urinary retention or infections. However pt reports good urinary sx control on Terazosin as he has had difficulty with urination and bladder pain while stopping Terazosin in the past. Due to complex hx of CKD, respiratory and heart failure, and Myelodysplastic syndrome, pt to stay on medication vs presenting to office monthly for catheter changes. -Cont Terazosin 5mg qd. Refills sent to [facility]. Pt to withhold dose if experiencing dizziness/lightheadedness. -F/u in 6 mos 2. BPH with obstruction/lower urinary tract symptoms (N40.1: Benign prostatic hyperplasia with lower urinary tract symptoms) See #1. 3. Penile cyst (N48.89: Other specified disorders of penis) PE: 2cm inclusion cyst on L penile foreskin. Denies pain/discomfort. Pt inquired about removal. Advised pt this is not necessary unless it becomes bothersome/infected. Follow-up With When Contact Information HI SEN, Mayank Butts, URL [facility] [address], [place] [id number]- [phone] Additional Instructions: 6 mos (no labs) Patient Education Acute Urinary Retention, Male I, Radha Aldana, personally scribed for Dr. Do on 09/22/2023 14:31:20. . Documentation recorded by the scribe, Radha Aldana, accurately reflects the services(s) I performed and decisions made by me. Authenticated by Dr. Do on 09/22/2023 14:33:08. 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 Chronic kidney disease, stage 4 (severe) Chronic respiratory failure with hypoxia Chronic systolic congestive heart failure Follicular formerly [facility], [facility] Hospital discharge follow-up Immunodeficiency due to drugs Incomplete bladder emptying Kidney cysts Microscopic hematuria Mixed hyperlipidemia Morbid obesity Myelodysplastic syndrome Penile cyst Primary hypertension Pulmonary HTN Type 2 diabetes mellitus with diabetic nephropathy, without long-term current use of insulin Type 2 diabetes mellitus with hyperlipidemia Urge incontinence Urinary urgency Historical Renal failure Procedure/Surgical History cysto/ud, bilateral RG Pyelogram (10/23/2011), Cataract care, Placement of stent in cardiac conduit. Medications aspi (more content not included)... [facility] Comment on above: Result Comment: Elec tronically Signed By: Mayank DO MD\.br\Date and Time Signed: 09/22/23 14:33 EST\.br\Electronically Co-Signed By: Radha Aldana\.br\Date and Time Co-Signed: 09/22/23 14:32 EST 08-29-2023 Note [place] Cardiology - [facility] Subjective Sandip Broussard is a 82 y.o. year old male patient being seen for 2 mo follow up chronic systolic heart failure, CAD, mitral valve regurgitation, and permanent afib. Had labs 2 days ago. Denies chest pain, palpitations, and lightheadedness. He is up 15# since last apt in Jun 2023. Patient Active Problem List Diagnosis Arteriolar nephrosclerosis [...] function study Pulmonary HTN (CMS/HCC) Superficial folliculitis Chronic respiratory failure with hypoxia (CMS/HCC) Drug-induced immunodeficiency (CMS/HCC) Hospital discharge follow-up Family History Problem Relation Name Age of [...] the echocardiogram performed in June 2020 at [facility]. Previously he sustained GI bleeding and underwent investigation of the [facility] clinic. He recovered from that. He [...] procedures. On 11/18/2021 he was admitted to [facility] with decompensated heart failure. In addition he was found to have type II TX. He underwent diuresis. Right heart catheterization on 11/21/2021 showed elevated filling pressures. Transesophageal echocardiogram showed moderately reduced systolic function with an ejection fraction of 30 to 35% and severe mitral regurgitation. Since last visit he has been doing about the same. He continues to be on oxygen therapy continuously. 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 this was stopped. He is currently under treatment with a new manager med surg and his anemia is being managed by [...] She is continuing his medications as prescribed. In June 2023 he was admitted to the [facility] (more content not included)... [facility] 07-17-2023 Note Patient here for [facility]. He was recently admitted with renal failure and anemia. Bumex was decreased to 1mg daily. Lisinopril was also decreased down to 2.5mg daily. He denies chest pain, palpitations, and LE edema. Says lightheadedness is improving. Review of Systems Cardiovascular: Positive for dyspnea on exertion. Respiratory: Positive for shortness of breath. Hematologic/Lymphatic: Bruises/bleeds easily. Musculoskeletal: Positive for arthritis, back pain and muscle weakness. Neurological: Positive for weakness. All other systems reviewed and are negative. [facility] 07-17-2023 Note [place] Cardiology - [facility] Subjective Sandip Broussard is a 82 y.o. year old male patient being seen for Hospital Follow-up Patient Active Problem List Diagnosis Arteriolar nephrosclerosis [...] function study Pulmonary HTN (CMS/HCC) Superficial folliculitis Chronic respiratory failure with hypoxia (CMS/HCC) Drug-induced immunodeficiency (CMS/HCC) Hospital discharge follow-up Family History Problem Relation Name Age of [...] disease status post stenting in the past [TIFAFNY to the LAD and then to the RCA on 12/08/2015], currently permanent atrial fibrillation, chronic diastolic heart failure, recurrent episodes of gastrointestinal and nosebleeding, recently resumed on low-dose Eliquis 2.5 mg twice daily due to age and renal dysfunction. He also has moderately severe mitral regurgitation based on the echocardiogram performed in June 2020 at [facility]. Previously he sustained GI bleeding and underwent investigation of the [facility] clinic. He recovered from that. He [...] procedures. On 11/18/2021 he was admitted to [facility] with decompensated heart failure. In addition he was found to have type II TX. He underwent diuresis. Right heart catheterization on 11/21/2021 showed elevated filling pressures. Transesophageal echocardiogram showed moderately reduced systolic function with an ejection fraction of 30 to 35% and severe mitral regurgitation. Since last visit he has been doing about the same. He continues to be on oxygen therapy continuously. 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 this was stopped. He is currently under treatment with a new manager med surg and his anemia is being managed by [...] He is on oxygen all the time. 07/17/2023 He is seen today for hospital follow-up. See discharge summary below. He states he feels (more content not included)... [facility] 07-16-2023 Note [id number] [facility] 03-14-2023 Note [place] Cardiology - [facility] Subjective Sandip Broussard is a 82 [...] the echocardiogram performed in June 2020 at [facility]. Previously he sustained GI bleeding and underwent investigation of the [facility] clinic. He recovered from that. He [...] procedures. On 11/18/2021 he was admitted to [facility] with decompensated heart failure. In addition he was found to have type II TX. He underwent diuresis. Right heart catheterization on 11/21/2021 showed elevated filling pressures. Transesophageal echocardiogram showed moderately reduced systolic function with an ejection fraction of 30 to 35% and severe mitral regurgitation. Since last visit he has been doing about the same. He continues to be on oxygen therapy continuously. 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 this was stopped. He is currently under treatment with a new manager med surg and his anemia is being managed by [...] BP Cuff Si (more content not included)... [facility] 02-26-2023 Hospital Discharge instructions Follow Up Care 02/26/2023 08:42:11 With:Jose Lu Address: [facility] [address] [place] [phone] Business (1) When: Unknown Comments:Labs todayFecal occult stool testingUrinalysis with micro todayWeekly CBC with differential and type and cross and transfuse if hemoglobin less than 8.0 at [facility].CMP and LDH every [address] Mercer for palliative management.Return in 6 weeks. [facility] 12-31-2022 Miscellaneous Notes Patient notified to make appt for refill documented in this encounter [facility] 11-20-2022 Note [facility] 11-20-2022 Miscellaneous Notes Concha @ [facility] notified and verbalizes understanding. Angle Kamara RN Images from the original note were not included. Per Dr. Hummel's check out note this afternoon: All appointments were cancelled. Images from the original note were not included. Bobbi Mehta [facility] You; Wilfred Martinez APRN.PLASTIC WELDER; Asher Hummel MD; Roman Clerical Pool; [facility] Pool 14 minutes ago (3:54 PM) LAN Asher, Do they realize the cost of Luspatercept? luspatercept-aamt 25 mg Solr [140930] Amount to Base Charge on: 125 mg Package: 1 Each Vial ([id number]) Charge Dropped: [phone] Bobbi: Concha Avendaño @ [facility] notified of cost and frequency of [...] hospice told them otherwise. Call placed to [facility]. Spoke w/ Concha, who confirms spouse's statement. Per Concha, they will cover all lab, transfusions, and treatment since Dr Hummel feels the pt has a less than 6 months prognosis w/ or w/o treatment. Pt's spouse notified of the above and verbalizes understanding. Will be in this afternoon as scheduled. Pharmacy/Clerical: MARII...... Angle Kamara RN documented in this encounter [facility] 11-20-2022 Instructions Asher Hummel MD - 11/20/2022 4:13 PM EDT Continue with Hospice Cancel treatment appointments Cancel appointments with [facility] RTC PRN Ok to get PRN transfusions based on symptoms. documented in this encounter [facility] 11-20-2022 History of Present illness Narrative Images [...] which included preparing to see the patient, [id number] patient care, completing clinical documentation, obtaining and/or reviewing separately obtained history, performing a medically appropriate examination, counseling and educating the patient/family/caregiver, communicating with other HCPs (not separately reported), independently interpreting results (not separately reported), communicating results to the patient/family/caregiver, and care coordination (not separately reported) Asher Hummel MD, CPE Hematology and Oncology Services Provided at: [place], [place] . documented in this encounter [facility] 11-20-2022 Nurse Note Patients would like to know if it is normal to get a blood transfusion in 4 hours? It used to be 8 hours now they are pushing it thru faster. Also could that result in fluid overload? Opal Campbell MA documented in this encounter [facility] 11-19-2022 Miscellaneous Notes Concha @ [facility] notified. Copy of this encounter along w/ office notes faxed to [phone]. Angle Kamara RN Yes - I agree Brynn: Pt was discharged from [facility] Hospice calls today regarding pt's transfusion needs. Notes that they can continue transfusing for symptom management if you believe that w/ or w/o treatment the pt would have a less than 6 month prognosis. Do you agree? Angle Kamara RN documented in this encounter [facility] 11-06-2022 Miscellaneous Notes Faxed orders to [facility] scheduling and also left a message. Ada Perez Preliminary CBC shows hgb of 6.5. Transfusion orders written per Dr Hummel. Pt's spouse notified and verbalizes understanding. Orders given to MARII Caballero, for scheduling. Angle Kamara RN documented in this encounter [facility] 11-06-2022 Miscellaneous Notes Patient came in for lab draw this afternoon per spouse they did not want to stay wait for results, requested to have nurse call them with results. Please call patient and spouse at [phone]. Thank you. Emily Horan Pss documented in this encounter [facility] 10-30-2022 Note [facility] 10-24-2022 Miscellaneous Notes Patient has been scheduled for transfusion tomorrow @ [facility] @ 8 am. He will need to go today for TSC. Call placed to patient/spouse no answer. Left detailed message with this information on voicemail. Ada Perez Pt's spouse calls requesting yesterday's CBC results. Hgb 7.4. Informed spouse that we would be ordering a blood transfusion to be done @ [facility]. Spouse verbalizes understanding. Transfusion orders signed per Dr Hummel and given to MARII Piedra, for scheduling. Angle Kamara RN documented in this encounter [facility] 10-23-2022 Note HNO ID: [id number] Author: Lexi Bowser RN Service: ? Author Type: Registered Nurse Type: Progress Notes Filed: 10/23/2022 3:32 PM Note Text: Went to lobby to inform pt of lab results and pt had already left. [facility] 10-23-2022 History of Present illness Narrative Went to lobby to inform pt of lab results and pt had already left. documented in this encounter [facility] 10-17-2022 Miscellaneous Notes [facility] Lab calls regarding transfusion order written on 10/16/22. Notes the H&H box must be marked. Per lab, the order they have has the box crossed out and NO marked next to it. Requesting we send a new order w/ the H&H box clearly marked. New order received from Dr Hummel and faxed to [facility] @ [phone]. Angle Kamara RN documented in this encounter [facility] 10-16-2022 Note [facility] 10-16-2022 History of Present illness Narrative Pt provided with CBC result from today per request. HgB 6.4. Transfusion orders rec'd from Dr Arias. Pt to PSS for scheduling of PRBC'S. Fide Puente RN documented in this encounter [facility] 10-15-2022 Nurse Note Clinical questionnaires incomplete due to Patient declined to complete or answer questions with nurse Additional intake questions: Has the patient had fever, nausea, vomiting, diarrhea, constipation, fatigue for > 1 week? Yes, fatigue and Provider Notified Does the patient have a decreased appetite? Yes Does patient want to see a Seed Pelleter? No (yes to any of above refer patient to schedulers for dietitian appointment) ) Does patient have any new or increased numbness or tingling of extremities? No Is patient interested in fertility information? No Does patient need any prescription refills? No Does patient have an advanced directive in place? No, Patient referred to [facility] documented in this encounter [facility] 10-15-2022 Note [facility] 10-15-2022 History of Present illness Narrative [place] [address] [place] CLINIC NOTE NAME: SANDIP BROUSSARD [facility] #: [id number] DATE: 10/15/2022 AGE: 81 PHYSICIAN: Elysia Esposito [...] clinic in 2 months. Elysia Esposito M.D. AA:[id number] / documented in this encounter [facility] 10-09-2022 Note [facility] 10-02-2022 Note [facility] 10-02-2022 Miscellaneous Notes 1 unit packed RBC's at [facility] 10-03-22 11am. Orders were faxed and they called the patient's documented in this encounter [facility] 09-25-2022 Miscellaneous Notes Pt's spouse calls requesting the results of his CBC from today. Hgb 6.9. Transfusion ordered per Dr Hummel. Spouse notified and will go to [facility] for type and screen. Transfusion orders given to Tello for scheduling. Angle Kamara RN documented in this encounter [facility] 09-18-2022 Note [facility] 09-18-2022 Instructions Asher Hummel MD - 09/18/2022 1:56 PM EST Continue luspatercept SQ today and q 3 weeks B12 shot today every 3 weeks Check CBC every Friday - stay for results Keep Hgb > 8 Check CMP every 3 weeks Recommended ensure/boost for increased calories. RTC in 3 weeks - see Wilfred documented in this encounter [facility] 09-18-2022 History of Present illness Narrative Images from the original note were not included. NAME: Sandip Broussard [facility] NO.: [id number] DATE OF SERVICE: September 18, 2022 (Estephanie) Some elements in this clinic [...] Epo usage. Unfortunately he suffered an acute TX 11/23/2021 and also developed another GI bleed. [...] TET2 p.?, [id number], c.4182+1G>A VAF: 44.5% TET2 p.W4270E, [id number], c.5618T>C VAF: 40% ZRSR2 p.R30Vfs*8, NM_005089.3, [...] good today. Updated Visit, August 28, 2022: Lloyd returns [...] ear infection per dr pearl since 05/29/2022, Alicia hartmann. He stopped it early, but his [...] surgery w/ Dr. Marshall Last fall in [place]. Has tranexamic acid at home. Requesting ENT referral at [facility]. He is dehydrated and not keeping up with fluids. Sap Bobj Developer is elevated exacerbating cause was likely letting [...] Eliquis daily at the recommendation of his learning administrator. Since stopping the aspirin he has not [...] which included preparing to see the patient, hebd-zy-oglt patient care, completing clinical documentation, performing a medically appropriate examination, counseling and educating the patient/family/caregiver, ordering medications, tests, or procedures, communicating with other HCPs (not separately reported), independently interpreting results (not separately reported), and communicating results to the patient/family/caregiver. Asher Hummel MD, CPE Hematology and Oncology Services Provided at: [place], [place] CC: Dr. Flash Gomez (Cardiology [facility]) Dr. Oumou Esposito documented in this encounter [facility] 09-12-2022 Miscellaneous Notes Patient is called and scheduled Called [facility] waiting on a call back Pt's spouse notified of results and need for transfusion. Verbalizes understanding. Clerical: Tello has orders and will be scheduling his transfusion. Angle Kamara RN Pt's spouse requesting to be called w/ today's hgb results. Preliminary hgb - 7.2 Call placed to pt's spouse. No answer. Message left requesting call back. Angle Kamara RN documented in this encounter [facility] 09-04-2022 Miscellaneous Notes 2 units Packed RBC's at [facility] on Friday09-06-22 lab on . Orders and cbc were faxed to [facility].Patient has been notified documented in this encounter [facility] 08-28-2022 Note [facility] 08-28-2022 Instructions Asher Hummel MD - 08/28/2022 3:36 PM EST Start luspatercept SQ q 3 weeks Check CBC every Friday Keep gb > 8 Check CMP every 3 weeks Recommended ensure/boost for increased calories. RTC in 3 weeks documented in this encounter [facility] 08-28-2022 History of Present illness Narrative Images from the original note were not included. NAME: Sandip Broussard CLINIC NO.: [id number] DATE OF SERVICE: August 28, 2022 (Estephanie) [...] Epo usage. Unfortunately he suffered an acute TX 11/23/2021 and also developed another GI bleed. [...] TET2 p.?, [id number], c.4182+1G>A VAF: 44.5% TET2 p.Z6040B, [id number], c.5618T>C VAF: 40% ZRSR2 p.R30Vfs*8, NM_005089.3, [...] ear infection per dr pearl since 05/29/2022, Alicia hartmann. He stopped it early, but his [...] surgery w/ Dr. Marshall Last fall in [place]. Has tranexamic acid at home. Requesting ENT referral at [facility]. He is dehydrated and not keeping up with fluids. Sap Bobj Developer is elevated exacerbating cause was likely letting [...] Eliquis daily at the recommendation of his learning administrator. Since stopping the aspirin he has not [...] which included preparing to see the patient, ejnh-dp-tvmi patient care, completing clinical documentation, performing a medically appropriate examination, counseling and educating the patient/family/caregiver, ordering medications, tests, or procedures, communicating with other HCPs (not separately reported), independently interpreting results (not separately reported), and communicating results to the patient/family/caregiver. Asher Hummel MD, CPE Hematology and Oncology Services Provided at: [place], [place] CC: Dr. Flash Gomez (Cardiology [facility]) Dr. Oumou Esposito documented in this encounter [facility] 08-27-2022 Note [facility] 08-27-2022 Note HNO ID: [id number] Author: Elysia Esposito MD Service: ? Author Type: Physician Type: Progress Notes Filed: 09/01/2022 3:01 PM Note Text: Please see transcribed note [facility] 08-27-2022 Miscellaneous Notes Patient is already scheduled for f/u and treatment on Friday, 08/28. Angle Kamara RN Ordering today should be here sometime tomorrow, I would schedule Monday 08/28 or after. Thank you Guillermo Gusman rPh Images from the original note were not included. Asher Hummel MD You; [facility] Pool 1 hour ago (6:23 AM) Ok great. When will we be able to start him? Pharmacy: Please advise on the above. Thanks! Angle Kamara RN FYI: Call received from [facility]. Pt's appeal for Luspatercept has been approved from 07/30/22-11/11/22. Authorization #: [id number]. An approval letter will be mailed to our office as well. Angle Kamara RN documented in this encounter [facility] 08-22-2022 Miscellaneous Notes [facility] Infusion Center has transfusion orders for pt. Notes his orders are for leuko reduced and irradiated cells. Per nurse, the pt has never received irradiated cells in the past. Pt's chart reviewed. Prior orders are unmarked or for leuko reduced only. Discussed w/ Dr Edmondson who orders to cancel the order for irradiated. Rosetta @ [facility] notified and verbalizes understanding. Asks that we fax the corrected order to [phone]. Order faxed as requested. Angle Kamara, MONET documented in this encounter [facility] 08-21-2022 Miscellaneous Notes 2 units packed RBC's at [facility] on 08-22-22. Lab today. Order and cbc were faxed to central scheduling. documented in this encounter [facility] 08-21-2022 Note [facility] 08-21-2022 History of Present illness Narrative Images from the original note were not included. NAME: Sandip Broussard CLINIC NO.: [id number] DATE OF SERVICE: August 21, 2022 (Michelle) [...] Epo usage. Unfortunately he suffered an acute TX 11/23/2021 and also developed another GI bleed. [...] TET2 p.?, [id number], c.4182+1G>A VAF: 44.5% TET2 p.Z3839S, NM_[id number], c.5618T>C VAF: 40% ZRSR2 p.R30Vfs*8, NM_005089.3, [...] pretty bad week. Nicki - bladder [facility] Wasn't too happy with prognosis laid out [...] ear infection per dr pearl since 05/29/2022, Alicia hartmann. He stopped it early, but his [...] surgery w/ Dr. Marshall Last fall in [place]. Has tranexamic acid at home. Requesting ENT referral at [facility]. He is dehydrated and not keeping up with fluids. Sap Bobj Developer is elevated exacerbating cause was likely letting [...] Eliquis daily at the recommendation of his learning administrator. 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 Wilfred Martinez APRN.CNP Hematology and Oncology Services Provided at: [place], [place] CC: Dr. Flash Gomez (Cardiology [facility]) Dr. Oumou Esposito I spent a total of 30 minutes on the date of the service which included preparing to see the patient, wbaj-tz-mfqe patient care, completing clinical documentation, obtaining and/or reviewing separately obtained history, performing a medically appropriate examination, counseling and educating the patient/family/caregiver, ordering medications, tests, or procedures, independently interpreting results (not separately reported), and communicating results to the patient/family/caregiver. documented in this encounter [facility] 08-14-2022 Miscellaneous Notes Orders faxed to [facility] lab. Savannah notified and confirms receipt. Angle Kamara, RN Signed. Wilfred Martinez APRN.CNP [facility] is requesting an order for H&H. Order pended. Angle Kamara RN documented in this encounter [facility] 08-14-2022 Miscellaneous Notes Called and spoke with [...] notify . TY. documented in this encounter [facility] 08-14-2022 Note [facility] 08-14-2022 Miscellaneous Notes 2 units packed RBC's at [facility]. Left detailed message and faxed the order with cbc. They will call the patient to schedule this appointment. documented in this encounter [facility] 08-14-2022 History of Present illness Narrative Images from the original note were not included. NAME: Sandip Broussard CLIN[facility] NO.: [id number] DATE OF SERVICE: August 14, 2022 (Michelle) [...] Epo usage. Unfortunately he suffered an acute TX 11/23/2021 and also developed another GI bleed. [...] TET2 p.?, [id number], c.4182+1G>A VAF: 44.5% TET2 p.P1208U, NM_[id number], c.5618T>C VAF: 40% ZRSR2 p.R30Vfs*8, NM_005089.3, c.88delC VAF: 91.1% And the following variant(s) of uncertain significance: BCORL1 p.R72W NM_021946.4: c.214C>T VAF: 100% PLAN: Continue weekly low dose decitabine. Await luspatercept approval. Transfusion needed tomorrow/Luis Daniel, hemoglobin of 7.3. Follow up in 1 [...] ear infection per dr pearl since 05/29/2022, Alicia hartmann. He stopped it early, but his [...] surgery w/ Dr. Marshall Last fall in [place]. Has tranexamic acid at home. Requesting ENT referral at [facility]. He is dehydrated and not keeping up with fluids. Sap Bobj Developer is elevated exacerbating cause was likely letting [...] Eliquis daily at the recommendation of his learning administrator. Since stopping the aspirin he has not [...] No family history on file. Wilfred Martinez APRN.CNP Hematology and Oncology Services Provided at: [place], [place] CC: Dr. Flash Gomez (Cardiology [facility]) Dr. Oumou Esposito I spent a total of 30 minutes on the date of the service which included preparing to see the patient, buao-qb-xjhj patient care, completing clinical documentation, obtaining and/or reviewing separately obtained history, performing a medically appropriate examination, counseling and educating the patient/family/caregiver, ordering medications, tests, or procedures, independently interpreting results (not separately reported), and communicating results to the patient/family/caregiver. documented in this encounter [facility] 08-13-2022 Miscellaneous Notes Addended by: ASHER HUMMEL on: 08/13/2022 06:04 PM Modules accepted: Orders Patient has an appt on 08/14/22. Would you like labs, if so place orders.Opal Campbell MA documented in this encounter [facility] 08-07-2022 Note [facility] 08-07-2022 Instructions Asher Hummel MD - 08/07/2022 3:54 PM EST Continue weekly low dose decitabine Await luspatercept approval Transfusion needed tomorrow/Luis Daniel, hgb 7.2 RTC in 1 week for labs and continue treatment. Decitabine Retacrit Recommended ensure/boost for increased calories documented in this encounter [facility] 08-07-2022 History of Present illness Narrative Images from the original note were not included. NAME: Sandip Broussard [facility] NO.: [id number] DATE OF SERVICE: August 07, 2022 (Estephanie) [...] Epo usage. Unfortunately he suffered an acute TX 11/23/2021 and also developed another GI bleed. [...] TET2 p.?, [id number], c.4182+1G>A VAF: 44.5% TET2 p.E4326Y, [id number], c.5618T>C VAF: 40% ZRSR2 p.R30Vfs*8, NM_005089.3, [...] Iron. HPI: Updated Visit, August 07, 2022: Lloyd returns [...] ear infection per dr pearl since 05/29/2022, Alicia hartmann. He stopped it early, but his [...] surgery w/ Dr. Marshall Last fall in [place]. Has tranexamic acid at home. Requesting ENT referral at [facility]. He is dehydrated and not keeping up with fluids. Sap Bobj Developer is elevated exacerbating cause was likely letting [...] Eliquis daily at the recommendation of his learning administrator. Since stopping the aspirin he has not [...] which included preparing to see the patient, qudj-sk-pnrr patient care, completing clinical documentation, obtaining and/or reviewing separately obtained history, performing a medically appropriate examination, counseling and educating the patient/family/caregiver, ordering medications, tests, or procedures, communicating with other HCPs (not separately reported), and independently interpreting results (not separately reported). Asher Hummel MD, CPE Hematology and Oncology Services Provided at: [place], [place] CC: Dr. Flash Gomez (Cardiology [facility]) Dr. Oumou Esposito documented in this encounter [facility] 07-30-2022 Note [facility] 07-30-2022 History of Present illness Narrative Images from the original note were not included. NAME: Sandip Broussard [facility] NO.: [id number] DATE OF SERVICE: July 30, 2022 (Lori [...] Epo usage. Unfortunately he suffered an acute TX 11/23/2021 and also developed another GI bleed. [...] TET2 p.?, [id number], c.4182+1G>A VAF: 44.5% TET2 p.A6837Z, [id number], c.5618T>C VAF: 40% ZRSR2 p.R30Vfs*8, NM_005089.3, [...] Iron. HPI: Updated Visit, July 30, 2022: Don returns with his today. No changes. Still awaiting luspateracept approval. Still requiring 3 Liters of Oxygen. No fever, chills, cough or shortness of breath. Appetite declined some and he has lost a few pounds. No vomiting. He just doesn't get hungry. Updated Visit, July 23, 2022: Don returns [...] ear infection per dr pearl since 05/29/2022, Alicia hartmann. He stopped it early, but his [...] surgery w/ Dr. Marshall Last fall in [place]. Has tranexamic acid at home. Requesting ENT referral at [facility]. He is dehydrated and not keeping up with fluids. Sap Bobj Developer is elevated exacerbating cause was likely letting [...] Eliquis daily at the recommendation of his learning administrator. Since stopping the aspirin he has not [...] Sandoval PA-C CC: Dr. Flash Gomez (Cardiology [facility]) Dr. Oumou Esposito documented in this encounter [facility] 07-25-2022 Miscellaneous Notes Pt's notified that pt did not receive Retacrit injection on 07/23. [facility], pt is being changed to Luspatercept due to not responding to Retacrit. Pts notified and verbalizes understanding. Pt will receive Luspatercept once approved by insurance. Miriam Elizabeth RN documented in this encounter [facility] 07-24-2022 Miscellaneous Notes [facility] called a critical HCT 22.2. Pt is scheduled for PRBC transfusion. They are faxing labs to scan into his chart. BRYNN: Please advise of any new orders Thank you, Fide documented in this encounter [facility] 07-23-2022 Note [facility] 07-23-2022 Miscellaneous Notes Orders received for 1 unit and 2 units of PRBC's. Confirmed with Dr. Hummel who stated 2 units. Call placed to [facility] and had to leave a message to schedule patient for transfusion on . Ada Perez documented in this encounter [facility] 07-23-2022 Instructions Asher Hummel MD - 07/23/2022 2:54 PM EST Continue low dose decitabine weekly x (Friday's) Luspatercept when approved q 21 days. Retacrit today and weekly for Hgb < 12 RTC with 1 week on 07/30/2022 Labs same day. See Wilfred Transfuse this at [facility] x 1 unit documented in this encounter [facility] 07-23-2022 History of Present illness Narrative Images from the original note were not included. NAME: Sandip Broussard [facility] NO.: [id number] DATE OF SERVICE: July 23, 2022 (Estephanie) Some elements in this clinic [...] Epo usage. Unfortunately he suffered an acute TX 11/23/2021 and also developed another GI bleed. [...] TET2 p.?, [id number], c.4182+1G>A VAF: 44.5% TET2 p.N9278X, NM_001127208.2, c.5618T>C VAF: 40% ZRSR2 p.R30Vfs*8, NM_005089.3, c.88delC VAF: 91.1% And the following variant(s) of uncertain significance: BCORL1 p.R72W NM_021946.4: c.214C>T VAF: 100% PLAN: Continue low dose decitabine weekly x (Friday') Luspatercept when approved q 21 days. Retacrit today and weekly for Hgb < 12 RTC with 1 week on 07/30/2022 Labs same day. See Wilfred Transfuse this at [facility] x 1 unit TREATMENT TO DATE: 4. 05/20/2022 - Low dose Decitabine weekly. 3. 07/09/2021 - 04/08/2022: Vidaza D1-5 q 28. 2. Retacrit 80,000 units every week. 1. Intermittent IV Iron. HPI: Updated Visit, July 23, 2022: Lloyd returns [...] ear infection per dr pearl since 05/29/2022, Alicia hartmann. He stopped it early, but his [...] surgery w/ Dr. Marshall Last fall in [place]. Has tranexamic acid at home. Requesting ENT referral at [facility]. He is dehydrated and not keeping up with fluids. Sap Bobj Developer is elevated exacerbating cause was likely letting [...] Eliquis daily at the recommendation of his learning administrator. Since stopping the aspirin he has not [...] which included preparing to see the patient, tznu-te-jwnf patient care, completing clinical documentation, obtaining and/or reviewing separately obtained history, performing a medically appropriate examination, counseling and educating the patient/family/caregiver, ordering medications, tests, or procedures, communicating with other HCPs (not separately reported), independently interpreting results (not separately reported), and communicating results to the patient/family/caregiver. Asher Hummel MD, CPE Hematology and Oncology Services Provided at: [place], [place] CC: Dr. Flash Gomez (Cardiology [facility]) Dr. Oumou Esposito documented in this encounter [facility] 07-18-2022 Miscellaneous Notes Pt's spouse notified and verbalizes understanding. Angle Kamara RN That is fine to do if he needs to. Pulse ox sat of 94-95% on 2L if fine. Thanks, Wilfred Martinez APRN.PLASTIC WELDER Pt's spouse reports that the infusion nurse increased the pt's oxygen to 3 LPM during today's transfusion after pt c/o feeling short of breath. Notes the pt's pulse ox is 94-95% on 2 LPM. Any objections to him increasing his flow rate to 3 LPM when needed? Angle Kamara RN documented in this encounter [facility] 07-16-2022 Note [facility] 07-16-2022 Nurse Note Additional intake questions: Has the patient had fever, nausea, vomiting, diarrhea, constipation, fatigue for > 1 week? Yes, diarrhea ( 1 times in last 24 hours), fatigue, SOB, and Provider Notified Does the patient have a decreased appetite? No Does patient want to see a Seed Pelleter? No (yes to any of above refer patient to schedulers for dietitian appointment) ) Does patient have any new or increased numbness or tingling of extremities? No Is patient interested in fertility information? No Does patient need any prescription refills? No Does patient have an advanced directive in place? No, Patient referred to [facility] Electronically Signed By: Matt Christianson LPN documented in this encounter [facility] 07-16-2022 History of Present illness Narrative [place] [address] [place] CLINIC NOTE NAME: SANDIP BROUSSARD CLINIC #: [id number] DATE: 07/16/2022 AGE: 81 PHYSICIAN: Elysia Esposito [...] data presented at the national annual meeting [place] [employer] 2021 has demonstrated a [...] locally in the interim Elysia Esposito M.D. AA:[id number] /[id number] documented in this encounter [facility] 07-15-2022 Miscellaneous Notes 1 unit packed RBC's at [facility] on 07-18-22 10am. Lab on Friday07-16-22 11am. Orders and cbc were faxed to [facility]. documented in this encounter [facility] 07-15-2022 Note [facility] 07-15-2022 Instructions Asher uHmmel MD - 07/15/2022 2:56 PM EST Continue low dose decitabine weekly x 2 days (Friday and Friday normally) This week plan second dose on with labs Retacrit today and weekly for Hgb < 12 RTC with 1 week on 07/23/2022 Labs same day. Transfuse on at [facility] documented in this encounter [facility] 07-15-2022 History of Present illness Narrative Images from the original note were not included. NAME: Sandip Broussard [facility] NO.: [id number] DATE OF SERVICE: July 15, 2022 (Estephanie) Some elements in this clinic [...] Epo usage. Unfortunately he suffered an acute TX 11/23/2021 and also developed another GI bleed. [...] TET2 p.?, [id number], c.4182+1G>A VAF: 44.5% TET2 p.G1102U, NM_001127208.2, c.5618T>C VAF: 40% ZRSR2 p.R30Vfs*8, NM_005089.3, [...] 07/23/2022 Labs same day. Transfuse on at [facility] x 1 unit TREATMENT TO DATE: [...] ear infection per dr pearl since 05/29/2022, Alicia hartmann. He stopped it early, but his [...] surgery w/ Dr. Marshall Last fall in [place]. Has tranexamic acid at home. Requesting ENT referral at [facility]. He is dehydrated and not keeping up with fluids. Sap Bobj Developer is elevated exacerbating cause was likely letting [...] Eliquis daily at the recommendation of his learning administrator. Since stopping the aspirin he has not [...] Types: Pipe Quit date: 1994 Years since quittin. Passive exposure: Past Smokeless tobacco: Never Vaping Use Vaping Use: Never used Substance Use Topics Alcohol use: Not Currently Drug use: Not Currently No family history on file. I spent a total of 40 minutes on the date of the service which included preparing to see the patient, ylum-jf-pejd patient care, completing clinical documentation, obtaining and/or reviewing separately obtained history, performing a medically appropriate examination, counseling and educating the patient/family/caregiver, ordering medications, tests, or procedures, communicating with other HCPs (not separately reported), independently interpreting results (not separately reported), and communicating results to the patient/family/caregiver. Asher Hummel MD, [facility] Hematology and Oncology Services Provided at: [place], [place] CC: Dr. Flash Gomez (Cardiology [facility]) Dr. Oumou Esposito documented in this encounter [facility] 07-11-2022 Miscellaneous Notes Yes. 2 units ordered per Radha on 07/08/22. Angle Kamara, RN ----- Message from Asher Hummel MD sent at 07/09/2022 8:04 PM EST ----- Did we transfuse? documented in this encounter [facility] 07-08-2022 Note [facility] 07-08-2022 Miscellaneous Notes Haydee called stating she will call patient's to get him set up. Ada Perez Left message w/ [place] scheduling to get patient set up for transfusion. Ada Perez documented in this encounter [facility] 07-08-2022 History of Present illness Narrative Images from the original note were not included. NAME: Sandip Broussard [facility] NO.: [id number] DATE OF SERVICE: July 08, 2022 (Estephanie) (Elements copied from Dr. Hummel's note dated July 01, 2022, have been reviewed and updated where appropriate, and all reflect current assessment and medical decision making during today's encounter, July 08, 2022) Referring Provider: Dr. Flash Pearl Additional [...] Epo usage. Unfortunately he suffered an acute TX 11/23/2021 and also developed another GI bleed. [...] TET2 p.?, [id number], c.4182+1G>A VAF: 44.5% TET2 p.G4926K, [id number], c.5618T>C VAF: 40% ZRSR2 p.R30Vfs*8, NM_005089.3, [...] Iron. HPI: Updated Visit, July 08, 2022: Don returns for follow up. No new symptoms. [...] ear infection per dr pearl since 05/29/2022, Alicia hartmann. He stopped it early, but his [...] surgery w/ Dr. Marshall Last fall in [place]. Has tranexamic acid at home. Requesting ENT referral at [facility]. He is dehydrated and not keeping up with fluids. Sap Bobj Developer is elevated exacerbating cause was likely letting [...] Eliquis daily at the recommendation of his learning administrator. Since stopping the aspirin he has not [...] Sandoval PA-C CC: Dr. Flash Gomez (Cardiology [facility]) Dr. Oumou Esposito documented in this encounter [facility] 07-01-2022 Note [facility] 07-01-2022 Miscellaneous Notes Addended by: ASHER HUMMEL on: 07/01/2022 03:13 PM Modules accepted: Orders documented in this encounter [facility] 07-01-2022 Instructions Asher Hummel MD - 07/01/2022 2:38 PM EST Continue low dose decitabine weekly x 2 days (Friday and Friday) Retacrit today and weekly for Hgb < 12 RTC with Wilfred / Radha in 1 week Labs same day. documented in this encounter [facility] 07-01-2022 History of Present illness Narrative Images from the original note were not included. NAME: Sandip Broussard [facility] NO.: [id number] DATE OF SERVICE: July 01, 2022 (Estephanie) [...] Epo usage. Unfortunately he suffered an acute TX 11/23/2021 and also developed another GI bleed. [...] TET2 p.?, [id number], c.4182+1G>A VAF: 44.5% TET2 p.Z5983C, [id number], c.5618T>C VAF: 40% ZRSR2 p.R30Vfs*8, NM_005089.3, c.88delC VAF: 91.1% And the following variant(s) of uncertain significance: BCORL1 p.R72W NM_021946.4: c.214C>T VAF: 100% PLAN: Continue low dose decitabine weekly x 2 days (Friday and Friday) Retacrit today and weekly for Hgb < 12 RTC with Wilfred / Radha in 1 week Labs same day. TREATMENT TO DATE: 4. 05/20/2022 - Low [...] ear infection per dr pearl since 05/29/2022, Alicia hartmann. He stopped it early, but his [...] surgery w/ Dr. Marshall Last fall in [place]. Has tranexamic acid at home. Requesting ENT referral at [facility]. He is dehydrated and not keeping up with fluids. Sap Bobj Developer is elevated exacerbating cause was likely letting [...] Eliquis daily at the recommendation of his learning administrator. Since stopping the aspirin he has not [...] which included preparing to see the patient, hbjd-zu-ivmn patient care, completing clinical documentation, performing a medically appropriate examination, counseling and educating the patient/family/caregiver, ordering medications, tests, or procedures, and independently interpreting results (not separately reported). Asher Hummel MD, C[facility] Hematology and Oncology Services Provided at: [place], [place] CC: Dr. Flash Gomez (Cardiology [facility]) Dr. Oumou Esposito documented in this encounter [facility] 06-24-2022 Note HNO ID: [id number] Author: Lexi Velasquez RN Service: ? Author Type: Registered Nurse Type: Progress Notes Filed: 06/24/2022 3:04 PM Note Text: Patient to get a transfusion per HMartinez. Lexi Velasquez RN [facility] 06-24-2022 Note [facility] 06-24-2022 History of Present illness Narrative Patient to get a transfusion per HMartinez. Lexi Velasquez RN documented in this encounter [facility] 06-24-2022 History of Present illness Narrative Images from the original note were not included. NAME: Sandip Broussard [facility] NO.: [id number] DATE OF SERVICE: June 24, 2022 (Michelle) [...] Epo usage. Unfortunately he suffered an acute TX 11/23/2021 and also developed another GI bleed. [...] TET2 p.?, [id number], c.4182+1G>A VAF: 44.5% TET2 p.H2386G, [id number], c.5618T>C VAF: 40% ZRSR2 p.R30Vfs*8, NM_005089.3, c.88delC VAF: 91.1% And the following variant(s) of uncertain significance: BCORL1 p.R72W NM_021946.4: c.214C>T VAF: 100% PLAN: Continue low dose decitabine weekly x 2 days (Friday and Friday) Retacrit today and weekly for Hgb < 12 Transfuse 2 unit PRBCs for Hgb < 8.5 (This week on Friday @ [facility] please) Follow up in 1 week [...] ear infection per dr pearl since 05/29/2022, Alicia hartmann. He stopped it early, but his [...] blood. Operated on nose- surgery w/ Dr. Marsahll Last fall in [place]. Has tranexamic acid at home. Requesting ENT referral at [facility]. He is dehydrated and not keeping up with fluids. Sap Bobj Developer is elevated exacerbating cause was likely letting [...] Eliquis daily at the recommendation of his learning administrator. Since stopping the aspirin he has not [...] Currently Drug use: Not Currently Wilfred Martinez APRN.[facility] Hematology and Oncology Services Provided at: [place], [place] CC: Dr. Flash Gomez (Cardiology [facility]) Dr. Oumou Esposito I spent a total of 30 minutes on the date of the service which included preparing to see the patient, lewd-ts-yyiy patient care, completing clinical documentation, obtaining and/or reviewing separately obtained history, performing a medically appropriate examination, counseling and educating the patient/family/caregiver, ordering medications, tests, or procedures, independently interpreting results (not separately reported), and communicating results to the patient/family/caregiver. documented in this encounter [facility] 06-17-2022 Note [facility] 06-17-2022 Miscellaneous Notes 1 unit packed RBC's at [facility] on Fri06-19-22 9am. Patient to do his lab on Friday06-17-22. documented in this encounter [facility] 06-17-2022 Instructions Asher Hummel MD - 06/17/2022 10:40 AM EST Continue low dose decitabine weekly x 2 days (Fri, Fri) Retacrit today and weekly for Hgb < 12 Transfuse 2 unit PRBCs for Hgb < 8.5 (this week on Friday @ [facility] please) Labs again once / week here RTC in 1 weeks - with labs - see Michelle documented in this encounter [facility] 06-17-2022 History of Present illness Narrative Images from the original note were not included. NAME: Sandip Broussard [facility] NO.: [id number] DATE OF SERVICE: June 17, 2022 (Estephanie) [...] Epo usage. Unfortunately he suffered an acute TX 11/23/2021 and also developed another GI bleed. [...] TET2 p.?, [id number], c.4182+1G>A VAF: 44.5% TET2 p.O5212F, [id number], c.5618T>C VAF: 40% ZRSR2 p.R30Vfs*8, NM_005089.3, c.88delC VAF: 91.1% And the following variant(s) of uncertain significance: BCORL1 p.R72W NM_021946.4: c.214C>T VAF: 100% PLAN: Continue low dose decitabine weekly x 2 days (Fri, Fri) Retacrit today and weekly for Hgb < 12 Transfuse 2 unit PRBCs for Hgb < 8.5 (this week on Friday @ [facility] please) Labs again once / week here RTC in 1 weeks - with labs - see Wilfred/Radha TREATMENT TO DATE: . 05/20/2022 - Low dose Decitabine weekly 3. 07/09/2021 - 04/08/2022: Vidaza D1-5 q 28. 2. Retacrit 80,000 units every week 1. Intermittent IV Iron HPI: Updated Visit, June 17, 2022: Don returns with his lissette. His left deltoid [...] ear infection per dr pearl since 05/29/2022, Alicia hartmann. He stopped it early, but his [...] surgery w/ Dr. Marshall Last fall in [place]. Has tranexamic acid at home. Requesting ENT referral at [facility]. He is dehydrated and not keeping up with fluids. Sap Bobj Developer is elevated exacerbating cause was likely letting [...] Eliquis daily at the recommendation of his learning administrator. Since stopping the aspirin he has not [...] this medication after PCP follow up ONETOUCH DELSoThree PLUS LANCET 33 gauge glipiZIDE (GLUCOTROL) 5 [...] which included preparing to see the patient, yryf-yf-lmcf patient care, completing clinical documentation, performing a medically appropriate examination, counseling and educating the patient/family/caregiver, ordering medications, tests, or procedures, and independently interpreting results (not separately reported). Asher Hummel MD, CPE Hematology and Oncology Services Provided at: [place], [place] CC: Dr. Flash Gomez (Cardiology [facility]) MD Elysia Merlos MD documented in this encounter [facility] 06-10-2022 Note [facility] 06-10-2022 History of Present illness Narrative NAME: Sandip Broussard [facility] NO.: [id number] DATE OF SERVICE: June 10, 2022 (Radha [...] Epo usage. Unfortunately he suffered an acute TX 11/23/2021 and also developed another GI bleed. [...] TET2 p.?, [id number], c.4182+1G>A VAF: 44.5% TET2 p.Y0483W, [id number], c.5618T>C VAF: 40% ZRSR2 p.R30Vfs*8, NM_005089.3, [...] ear infection per dr pearl since 05/29/2022, Alicia hartmann. He stopped it early, but his [...] surgery w/ Dr. Marshall Last fall in [place]. Has tranexamic acid at home. Requesting ENT referral at [facility]. He is dehydrated and not keeping up with fluids. Sap Bobj Developer is elevated exacerbating cause was likely letting [...] Eliquis daily at the recommendation of his learning administrator. Since stopping the aspirin he has not [...] Sandoval PA-C CC: Dr. Flash Gomez (Cardiology [facility]) MD Elysia Merlos MD documented in this encounter [facility] 06-10-2022 Nurse Note Clinical questionnaires incomplete due to Nurse was Interrupted by provider during rooming process QNR not working. Showing an error. Ksenia Mohan documented in this encounter [facility] 06-07-2022 Miscellaneous Notes Per pt's chart, he is scheduled to receive 2 units RBC's at [facility] today. Angle Kamara RN Wade from [facility] lab called with critical results on patient. HBG 7.7 HCT 23.0(critical result) Tifaney N Mohan, RN documented in this encounter [facility] 06-03-2022 Note [facility] 06-03-2022 Miscellaneous Notes 2 units packed RBC's at [facility] on Fri06-05-22 9am. Lab on Friday before noon. Order and cbc were faxed to [facility] documented in this encounter [facility] 06-03-2022 Instructions Asher Hummel MD - 06/03/2022 1:55 PM EST Continue low dose decitabine weekly x 2 days (Fri, Fri) Retacrit today and weekly for Hgb < 12 Transfuse 2 unit PRBCs for Hgb < 8.5 (this week on Friday @ [facility] please) Labs again once / week here Recheck H/H this Friday at [facility] and transfuse again if Hgb < 8.5 RTC in 1 weeks - with labs - see Wilfred documented in this encounter [facility] 06-03-2022 History of Present illness Narrative Images from the original note were not included. NAME: Sandip Broussard [facility] NO.: [id number] DATE OF SERVICE: June 03, 2022 (juan daniel) Some elements in this clinic note that [...] Epo usage. Unfortunately he suffered an acute TX 11/23/2021 and also developed another GI bleed. [...] < 8.5 (this week on Friday @ [facility] please) Labs again once / week here Recheck H/H this Friday at [facility] and transfuse again if Hgb < [...] surgery w/ Dr. Marshall Last fall in [place]. Has tranexamic acid at home. Requesting ENT referral at [facility]. He is dehydrated and not keeping up with fluids. Sap Bobj Developer is elevated exacerbating cause was likely letting [...] Eliquis daily at the recommendation of his learning administrator. 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) PAST MEDICAL HISTORY Diagnosis Date Anemia Anemia of chronic renal failure, stage 4 (severe) (HCC) 08/23/2020 Atrial fibrillation (HCC) Chronic kidney disease CRF (chronic renal failure), stage 4 (severe) ([facility]) 08/23/2020 Diabetes mellitus (HCC) GI bleed Hypertension [...] which included preparing to see the patient, ezhz-yj-krdg patient care, completing clinical documentation, obtaining and/or reviewing separately obtained history, performing a medically appropriate examination, counseling and educating the patient/family/caregiver, ordering medications, tests, or procedures, communicating with other HCPs (not separately reported), and independently interpreting results (not separately reported). Asher Hummel MD, CPE Hematology and Oncology Services Provided at: [place], [place] CC: Dr. Flash Gomez (Cardiology [facility]) MD Elysia Merlos MD documented in this encounter [facility] 05-23-2022 Miscellaneous Notes CYCLE 1/DAY 1 POST [...] Angle Kamara RN documented in this encounter [facility] 05-21-2022 Note [facility] 05-20-2022 Note [facility] 05-20-2022 Miscellaneous Notes The following approved [...] hours as needed. Authorizing Provider: WILFRED MARTINEZ APRN.PLASTIC WELDER Scripts pended for antiemetics. Please review and approve. Thanks! Angle Kamara RN documented in this encounter [facility] 05-20-2022 Miscellaneous Notes 1 unit packed RBC's at [facility] on Friday05-24-22 at 9am. Lab on anytime before noon. Patient and are aware of this appt. documented in this encounter [facility] 05-20-2022 Instructions Asher Hummel MD - 05/20/2022 2:40 PM EDT Start low dose decitabine weekly x 2 days (M, T) Retacrit today and weekly for Hgb < 12 Labs once / week RTC in 2 weeks Transfuse 1 unit PRBCs for Hgb < 8.5 (this week on @ [facility] please) documented in this encounter [facility] 05-20-2022 History of Present illness Narrative Images from the original note were not included. NAME: Sandip Broussard [facility] NO.: [id number] DATE OF SERVICE: May 20, 2022 (Estephanie) Some elements in this clinic [...] Epo usage. Unfortunately he suffered an acute TX 11/23/2021 and also developed another GI bleed. [...] Hgb < 8.5 (this week on @ [facility] please) TREATMENT TO DATE: 4. 05/20/2022 [...] surgery w/ Dr. Marshall Last fall in [place]. Has tranexamic acid at home. Requesting ENT referral at [facility]. He is dehydrated and not keeping up with fluids. Sap Bobj Developer is elevated exacerbating cause was likely letting [...] Eliquis daily at the recommendation of his learning administrator. Since stopping the aspirin he has not [...] anemia. Initial Visit, May 29, 2020: Sandip Borussard presents today Hematology and Oncology evaluation. He [...] which included preparing to see the patient, phet-yv-iffu patient care, completing clinical documentation, obtaining and/or reviewing separately obtained history, performing a medically appropriate examination, counseling and educating the patient/family/caregiver, ordering medications, tests, or procedures, communicating with other HCPs (not separately reported), and independently interpreting results (not separately reported). Asher Hummel MD, CPE Hematology and Oncology Services Provided at: [place], [place] CC: Dr. Flash Gomez (Cardiology [facility]) MD Elysia Merlos MD documented in this encounter [facility] 05-20-2022 Nurse Note Patient is interested in getting Flu shot. Opal Campbell MA documented in this encounter [facility] 05-14-2022 Miscellaneous Notes Appointment scheduled & confirmed with pt's spouse. Per secure chat from Dr Hummel: hello - I'd like Don to start Dacogen on Friday will need education as well as consent. Thank you. Clerical: Please schedule. Pharmacy: [facility]... Angle Kamara, RN documented in this encounter [facility] 05-06-2022 Note [facility] 05-06-2022 Miscellaneous Notes Patient will get TSC tomorrow at [place] between 6:30 and 5 pm (outpatient lab hours) Tranfusion is scheduled for Friday, 05/08 @ 12:00 pm. Ada Perez documented in this encounter [facility] 05-06-2022 Instructions Asher Hummel MD - 05/06/2022 4:30 PM EDT Retacrit today and weekly for Hgb < 12 Labs once / week RTC in 2 weeks Transfuse 1 unit PRBCs for Hgb < 8.5 documented in this encounter [facility] 05-06-2022 History of Present illness Narrative Images from the original note were not included. NAME: Sandip Broussard [facility] NO.: [id number] DATE OF SERVICE: May 06, 2022 (juan daniel) Some elements in this clinic note that [...] Epo usage. Unfortunately he suffered an acute TX 11/23/2021 and also developed another GI bleed. [...] surgery w/ Dr. Marshall Last fall in [place]. Has tranexamic acid at home. Requesting ENT referral at [facility]. He is dehydrated and not keeping up with fluids. Sap Bobj Developer is elevated exacerbating cause was likely letting [...] Eliquis daily at the recommendation of his learning administrator. Since stopping the aspirin he has not [...] which included preparing to see the patient, dwwe-oo-uyqv patient care, completing clinical documentation, obtaining and/or reviewing separately obtained history, performing a medically appropriate examination, counseling and educating the patient/family/caregiver, ordering medications, tests, or procedures, communicating with other HCPs (not separately reported), and independently interpreting results (not separately reported). Asher Hummel MD, CPE Hematology and Oncology Services Provided at: [place], [place] CC: Dr. Flash Gomez (Cardiology [facility]) MD Elysia Merlos MD documented in this encounter [facility] 04-29-2022 Miscellaneous Notes Lucero Santiago calling from [facility]. States that they received pt's specimen. Needs to clarify if this is bone marrow or peripheral blood. Per Nicki Aguila in lab, bone marrow aspirate was submitted to [facility]. Lucero notified of the above and verbalizes understanding. No additional questions noted. Angle Kamara RN documented in this encounter [facility] 04-29-2022 Note [facility] 04-29-2022 Note [facility] 04-29-2022 History of Present illness Narrative Pt is unable to receive retacrit today d/t it not being authorized by insurance since it has only been 7 days. Per pharmacy. Pharmacy requesting to get retacrit authorized weekly. Pt made aware. Will keep next appointment. documented in this encounter [facility] 04-29-2022 Instructions Asher Hummel MD - 04/29/2022 1:07 PM EDT Retacrit today and weekly for Hgb < 12 RTC in 1 week, labs and review BMBx results. documented in this encounter [facility] 04-29-2022 History of Present illness Narrative Images from the original note were not included. NAME: Sandip Broussard [facility] NO.: [id number] DATE OF SERVICE: April 29, 2022 (Estephanie) [...] Epo usage. Unfortunately he suffered an acute TX 11/23/2021 and also developed another GI bleed. [...] surgery w/ Dr. Marshall Last fall in [place]. Has tranexamic acid at home. Requesting ENT referral at [facility]. He is dehydrated and not keeping up with fluids. Sap Bobj Developer is elevated exacerbating cause was likely letting [...] Eliquis daily at the recommendation of his learning administrator. Since stopping the aspirin he has not [...] which included preparing to see the patient, vztl-el-zbrl patient care, obtaining and/or reviewing separately obtained history, ordering medications, tests, or procedures, and independently interpreting results (not separately reported). Asher Hummel MD, CPE Hematology and Oncology Services Provided at: [place], [place] CC: Dr. Flash Gomez (Cardiology [facility]) MD Elysia Merlos Cate, MD documented in this encounter [facility] 04-25-2022 Note [facility] 04-25-2022 Note [facility] 04-25-2022 History of Present illness Narrative [...] Hummel MD Personnel present: Asher Hummel MD, label designer. Bone marrow aspiration: Unilateral was obtained. Bone [...] In Department: Hematology/Oncology documented in this encounter [facility] 04-23-2022 Miscellaneous Notes signed Brynn/Wilfred: Order for Foundation One Heme pended (MIS test). Angle Kamara, RN Patient coming in on for bone marrow biopsy. Dr. Esposito recommended hemotologic NGS testing. Can you please pend that for Dr. Hummel to sign and make sure he gets it drawn when here for bmbx? Thanks. Radha Sandoval PA-C documented in this encounter [facility] 04-22-2022 Note [facility] 04-18-2022 Note [facility] 04-18-2022 Nurse Note Additional intake questions: Has the patient had fever, nausea, vomiting, diarrhea, constipation, fatigue for > 1 week? Yes, fatigue and Provider Notified Does the patient have a decreased appetite? No Does patient want to see a Seed Pelleter? No (yes to any of above refer patient to schedulers for dietitian appointment) ) Does patient have any new or increased numbness or tingling of extremities? No Is patient interested in fertility information? No Does patient need any prescription refills? No Does patient have an advanced directive in place? Yes, no copy found in [facility] Patient referred to [facility] Electronically Signed By: Matt Christianson LPN documented in this encounter [facility] 04-18-2022 History of Present illness Narrative [place] [address] [place] CLINIC NOTE NAME: SANDIP BROUSSARD Brynn CLINIC #: [id number] DATE: 04/18/2022 AGE: 81 PHYSICIAN: Elysia Esposito [...] 1 son who works as a senior DermApproved specialist at [facility]. He had a big family of 10. 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 Elysia Esposito M.D. KAILEY:[id number] /[id number] documented in this encounter [facility] 04-15-2022 Miscellaneous Notes Discussed w/ Wilfred. No [...] [facility] on . It would be too long of a day too far from home. They want to receive a blood transfusion at [facility]. They are concerned that patient may drop further prior to and want a transfusion if needed before appointment. Please advise and set up transfusion at [place] and call pt if needed. Thank you. documented in this encounter [facility] 04-15-2022 Nurse Note Labs reviewed with patient and questions answers/discussion about possible transfusion. See telephone encounter. documented in this encounter [facility] 04-08-2022 Note [facility] 04-08-2022 Instructions Asher Hummel MD - 04/08/2022 3:14 PM EDT Labs on Friday Transfuse if Hgb is 7.0 or patient is symptomatic Aranesp and B12 today Keep appointment with Dr. Esposito 04/18/2022 RTC in 2 weeks with labs same day. documented in this encounter [facility] 04-08-2022 History of Present illness Narrative Images from the original note were not included. NAME: Sandip Broussard [facility] NO.: [id number] DATE OF SERVICE: April 08, 2022 Some [...] Epo usage. Unfortunately he suffered an acute TX 11/23/2021 and also developed another GI bleed. [...] surgery w/ Dr. Marshall Last fall in [place]. Has tranexamic acid at home. Requesting ENT referral at [facility]. He is dehydrated and not keeping up with fluids. Sap Bobj Developer is elevated exacerbating cause was likely letting [...] Eliquis daily at the recommendation of his learning administrator. Since stopping the aspirin he has not [...] which included preparing to see the patient, qexk-vo-eerr patient care, completing clinical documentation, performing a medically appropriate examination, counseling and educating the patient/family/caregiver, ordering medications, tests, or procedures, and communicating with other HCPs (not separately reported). Asher Hummel MD, CPE Hematology and Oncology Services Provided at: [place], [place] CC: Dr. Flash Gomez (Cardiology [facility]) MD Elysia Merlos MD documented in this encounter [facility] 04-03-2022 Miscellaneous Notes Discussed with Dr Arias. No additional orders. Fide Puente RN Critical lab called Hgb 6.9/Hct 21.8. Pt has 2 units PRBC's ordered and I called and spoke to Rosetta at the [facility] infusion center and he is schedule for infusion of units at 0800 04/04/22. Note Hgb 7.0 HM/BRYNN: any further instructions? Fide Puente RN documented in this encounter [facility] 04-02-2022 Miscellaneous Notes 2 units packed RBC S at [facility] on 04-04-22. 9am. Patient is going for lab draw on 04-03. Around noon documented in this encounter [facility] 04-02-2022 Miscellaneous Notes Transfusion orders signed per Wilfred and forwarded to MARII Puga, for scheduling. Angle Kamara RN Today's hgb 7. Pt's spouse notified and verbalizes understanding. Notes the pt c/o increased fatigue and weakness. Do you want to transfuse? Angle Kamara RN Pt requesting lab results be called to his spouse, Lissette [phone] when available. Thanks! documented in this encounter [facility] 03-21-2022 Miscellaneous Notes Don is scheduled 04/04 for appointment with [facility] answer line messaged me back and said they tried to call patient this afternoon to schedule, they left a message Hi, I am currently working on this. Clerical: Please see Dr Esposito's reply below. Thanks! Angle Kamara, MONET Images from the original note were not included. MD Asher Laughlin MD; Angle Kamara, MONET I would recommend having angle or someone from your office call the cancer answer line-- [phone]-- since I am not sure how these other consults are going through If you want me to specifically see-- let them know. Otherwise-- they will get them in to the first available. I can always give add on times Thanks Elysia Previous Messages ----- Message ----- From: Asher Hummel MD Sent: 03/15/2022 9:27 PM EDT To: Elysia Esposito MD, Angle Kamara, MONET Yes - def - I placed a consult today -thank you! ----- Message ----- From: Elysia Esposito MD Sent: 03/11/2022 2:56 PM EDT To: Asher Hummel MD, Angle Kamara, RN We are happy to get him in to be seen Would that be okay? ----- Message ----- From: Asher Hummel MD Sent: 03/11/2022 2:53 PM EDT To: Elysia Esposito MD, Angle Kamara, MONET Alvarez - I could use your input on this gentleman - he is transfusion dependent about every 2 weeks. Vidaza + Aranesp isn't working so well. Any thoughts you could provide would be appreciated. documented in this encounter [facility] 03-19-2022 Miscellaneous Notes Pt's calls for yesterday's hgb results. Results reviewed w/ pt's spouse. Spouse verbalizes understanding. Denies any further questions at this time. Angle Kamara RN documented in this encounter [facility] 03-18-2022 Miscellaneous Notes Message left for pt to call our office back regarding lab results. Paris Jerry RN Patient is here for lab draw. Patient and spouse have asked us to send message to have someone call them today with the results. Thank you! Emily Horan Pss documented in this encounter [facility] 03-18-2022 Miscellaneous Notes Emailed cancer answer line to schedule Clerical: Please refer pt to Dr Esposito. Thanks! Angle Kamara RN Yes - that would be great - I just spoke with his and she is aware! Brynn: Do you want pt set up to see Dr Esposito? Angle Kamara RN Images from the original note were not included. MD Asher Laughlin MD; Angle Kamara, RN We are happy to get him in to be seen Would that be okay? Previous Messages ----- Message ----- From: Asher Hummel MD Sent: 03/11/2022 2:53 PM EDT To: Elysia Esposito MD, Angle Kamara, RN Octavio Alvarez - I could use your input on this gentleman - he is transfusion dependent about every 2 weeks. Vidaza + Aranesp isn't working so well. Any thoughts you could provide would be appreciated. documented in this encounter [facility] 03-11-2022 Note [facility] 03-11-2022 Miscellaneous Notes 2 units packed RBC's at [facility] on Friday03-12-22 8am. Lab today. Orders were faxed documented in this encounter [facility] 03-11-2022 Instructions Asher Hummel MD - 03/11/2022 2:54 PM EDT 1. Proceed with C9 Vidaza D1-5 2. Transfuse in [facility] this week 1 unit 3. Continue Retacrit q 2 weeks - labs every weeks 4. RTC in 4 weeks for C10 Vidaza 5. Discuss with Dr. Esposito. documented in this encounter [facility] 03-11-2022 History of Present illness Narrative Images from the original note were not included. NAME: Sandip Broussard [facility] NO.: [id number] DATE OF SERVICE: March 11, 2022 Some [...] Epo usage. Unfortunately he suffered an acute TX 11/23/2021 and also developed another GI bleed. [...] Discuss with Dr. Esposito. TREATMENT TO DATE: 07/09/2021 - Current: Vidaza D1-5 q 28. [...] I reviewed the recommendations and clarified for Llody exactly what his regimen should be. This [...] surgery w/ Dr. Marshall Last fall in [place]. Has tranexamic acid at home. Requesting ENT referral at [facility]. He is dehydrated and not keeping up with fluids. Sap Bobj Developer is elevated exacerbating cause was likely letting [...] Eliquis daily at the recommendation of his learning administrator. Since stopping the aspirin he has not [...] which included preparing to see the patient, ugji-vg-mbkw patient care, completing clinical documentation, performing a medically appropriate examination, counseling and educating the patient/family/caregiver, ordering medications, tests, or procedures, and communicating with other HCPs (not separately reported). Asher Hummel MD, CPE Hematology and Oncology Services Provided at: [place], [place] CC: Dr. Flash Gomez (Cardiology [facility]) Dr. Oumou Cho MD documented in this encounter [facility] 02-28-2022 Miscellaneous Notes Patient has been scheduled for transfusion at [place] on 03/01 @ 8:00 am. Faxed orders to [place] Scheduling. He will get TSC today. Ada Perez documented in this encounter [facility] 02-25-2022 Note [facility] 02-25-2022 History of Present illness Narrative Dr. Hummel aware of pt hgb 7.1 and his reports of feeling fatigue, lighteaded. Retacrit given; Pt to come back in to office on for CBC. Patient agrees with plan and scheduled appointment. documented in this encounter [facility] 02-11-2022 Note [facility] 02-11-2022 History of Present illness Narrative Images from the original note were not included. NAME: Sandip Broussard [facility] NO.: [id number] DATE OF SERVICE: February 11 2022 (Elements [...] Epo usage. Unfortunately he suffered an acute TX 11/23/2021 and also developed another GI bleed. [...] weeks for cycle 9. TREATMENT TO DATE: 07/09/2021 - Current: Vidaza D1-5 q 28. [...] blood. Operated on nose- surgery w/ Dr. Timmis Last fall in [place]. Has tranexamic acid at home. Requesting ENT referral at [facility]. He is dehydrated and not keeping up with fluids. Sap Bobj Developer is elevated exacerbating cause was likely letting his CPAP reservoir go dry. Ferritin is coming down. Updated Visit, January 10, 2021: Llyod is here for follow up. After review [...] Eliquis daily at the recommendation of his learning administrator. Since stopping the aspirin he has not [...] Sandoval PA-C CC: Dr. Flash Gomez (Cardiology [facility]) Dr. Oumou Cho MD documented in this encounter [facility] 02-04-2022 Note [facility] 02-04-2022 Miscellaneous Notes [facility] lab calls w/ critical lab results: Hgb 6.8 Hct 21.1 Pt identifiers and results read back for verification. Pt scheduled for 2 units RBCs tomorrow, 02/05. Angle Kamara RN documented in this encounter [facility] 02-04-2022 Miscellaneous Notes 2 units packed RBC's at [facility] on 02-05 8am. He is stopping for lab draw today. Orders and cbc were faxed to [facility]. documented in this encounter [facility] 02-04-2022 History of Present illness Narrative VS taken. States he is here because he feels very fatigued and slightly more short of breath. Wants to f/u with his hgb from this am. Hgb 6.8. Dr. Hummel made aware of results and assessment. Pt will be receiving order for a transfusion and Informed of plan. Pt agrees. documented in this encounter [facility] 01-30-2022 Note HNO ID: [id number] Author: Miriam Elizabeth RN Service: ? Author Type: Registered Nurse Type: Progress Notes Filed: 01/30/2022 3:44 PM Note Text: Pt denies need for transfusion today, states he will call if his symptoms get worse. Miriam Elizabeth RN [facility] 01-30-2022 History of Present illness Narrative Pt denies need for transfusion today, states he will call if his symptoms get worse. Miriam Elizabeth RN documented in this encounter [facility] 01-21-2022 Note HNO ID: [id number] Author: Celena Lind RN Service: ? Author Type: Registered Nurse Type: Progress Notes Filed: 01/21/2022 3:53 PM Note Text: Cr 1.[address] Watt. Pt given 500 mls NS. [facility] 01-21-2022 History of Present illness Narrative Cr 1.[address] Watt. Pt given 500 mls NS. documented in this encounter [facility] 01-18-2022 Note [facility] 01-18-2022 History of Present illness Narrative Repeat Cr 2.[address] Watt by lead rn gilson Elizabeth. Pt will receive 1 L NS today and return sunday 01/21 for repeat labs. documented in this encounter [facility] 01-14-2022 Note HNO ID: [id number] Author: Lexi Velasquez RN Service: ? Author Type: Registered Nurse Type: Progress Notes Filed: 01/14/2022 3:44 PM Note Text: [facility] 01-14-2022 Note [facility] 01-14-2022 Miscellaneous Notes Cr 2.13 [facility] with [facility], pt to increase oral fluids at home, we will recheck a CMP on 01/17. Please sign pending order is agreeable. Thanks! Miriam Elizabeth RN documented in this encounter [facility] 01-14-2022 Miscellaneous Notes Pt scheduled for 1 unit of PRBCs TB Friday (01/16) @ 900am. Type and cross tomorrow (01/15). Confirmed with pt, order faxed. documented in this encounter [facility] 01-14-2022 History of Present illness Narrative documented in this encounter [facility] 01-14-2022 History of Present illness Narrative Images from the original note were not included. NAME: Sandip Broussard CLINIC NO.: [id number] DATE OF SERVICE: January 14, 2022 Some [...] Epo usage. Unfortunately he suffered an acute TX 11/23/2021 and also developed another GI bleed. [...] weeks for C8 Vidaza TREATMENT TO DATE: 307/09/2021 - Current: Vidaza [...] surgery w/ Dr. Marshall Last fall in [place]. Has tranexamic acid at home. Requesting ENT referral at [facility]. He is dehydrated and not keeping up with fluids. Sap Bobj Developer is elevated exacerbating cause was likely letting [...] Eliquis daily at the recommendation of his learning administrator. Since stopping the aspirin he has not [...] Visit, June 15, 2020: Conducted by telephone. aSndip Broussard is a 79 year old male [...] which included preparing to see the patient, bvml-jb-onrd patient care, completing clinical documentation, performing a medically appropriate examination and ordering medications, tests, or procedures. Asher Hummel MD, CPE Services Provided at: [facility], [place], [place] & [place], [place] CC: Dr. Flash Gomez (Cardiology [facility]) Dr. Oumou Cho MD documented in this encounter [facility] 01-07-2022 Nurse Note Patient Identification confirmed: yes. Injection given and documented on SEP per provider order. Kathy Morelos Ma documented in this encounter [facility] 01-02-2022 Miscellaneous Notes Added patient to the [...] Miriam Elizabeth RN documented in this encounter [facility] 12-21-2021 History of Present illness Narrative 10 documented in this encounter [facility] 12-17-2021 History of Present illness Narrative Patient states he was recently in the [facility] for a mild heart attack, was released. Then was admitted a few days later to the [facility] for fluid on his lungs. States they removed it and he is feeling much better. Patient states he has had to wear his oxygen all the time since his admission to the [facility]. Did not wear his in to the facility today bc he didn;t feel like he needed it . Then his Pulse ox was low and we had to put ours on him. Encouraged patient to wear his oxygen at all times. Lexi Velasquez RN Patient spouse would like to be called prior to him finishing treatment [phone] Erica Bain RN documented in this encounter [facility] 12-17-2021 History of Present illness Narrative Images from the original note were not included. NAME: Sandip Broussard CLINIC NO.: [id number] DATE OF SERVICE: December 17, 2021 Some [...] Epo usage. Unfortunately he suffered an acute TX 11/23/2021 and also developed another GI bleed. [...] Iron HPI: Updated Visit, December 17, 2021: Lloyd is [...] surgery w/ Dr. Marshall Last fall in [place]. Has tranexamic acid at home. Requesting ENT referral at [facility]. He is dehydrated and not keeping up with fluids. Sap Bobj Developer is elevated exacerbating cause was likely letting [...] Eliquis daily at the recommendation of his learning administrator. Since stopping the aspirin he has not [...] 12/17/2021: Sodium 145, potassium 3.4, BUN 30, Sap Bobj Developer. 1.54, LDH 260, CBC: 1.98 > 10.2/32.5 [...] which included preparing to see the patient, bnyc-hv-epsy patient care, completing clinical documentation, obtaining and/or reviewing separately obtained history, performing a medically appropriate examination, counseling and educating the patient/family/caregiver and ordering medications, tests, or procedures. Asher Hummel MD, CPE Services Provided at: [place], [place] & [place], [place] CC: Dr. Flash Gomez (Cardiology [facility]) Dr. Oumou Cho MD documented in this encounter [facility] 11-29-2021 History of Present illness Narrative Images from the original note were not included. NAME: Sandip Broussard CLINIC NO.: [id number] DATE OF SERVICE: November 29, 2021 Some [...] Epo usage. Unfortunately he suffered an acute TX 11/23/2021 and also developed another GI bleed. He was transfused, and medically managed after catheterization. 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 PLAN: 1. Hold Vidaza for 3 weeks (RTC in 3+ weeks on a Friday for possible start) 2. Consider Hospice - contact [facility] (current Home Health) 3. RTC in [...] surgery w/ Dr. Marshall Last fall in [place]. Has tranexamic acid at home. Requesting ENT referral at [facility]. He is dehydrated and not keeping up with fluids. Sap Bobj Developer is elevated exacerbating cause was likely letting [...] Eliquis daily at the recommendation of his learning administrator. Since stopping the aspirin he has not [...] which included preparing to see the patient, bivd-jk-tagc patient care, completing clinical documentation, obtaining and/or reviewing separately obtained history, performing a medically appropriate examination, ordering medications, tests, or procedures and care coordination (not separately reported). Asher Hummel MD, CPE Services Provided at: [facility], [place], [place] & [facility], [place], [place] CC: Dr. Flash Gomez (Cardiology [facility]) Dr. Oumou Cho MD documented in this encounter [facility] 11-29-2021 Miscellaneous Notes Records scanned. Update: Pt discharged home w/ home health on Friday, 11/25. [place]: Please scan pt's hospital records from [facility]. Thanks! Angle Kamara RN Thank you for the update. FYI: Pt's calls to inform us that the pt is currently admitted to ICU @ [facility] after suffering a heart attack on Friday. Pt found to have pneumonia as well. Notes the pt's condition is stable as of now. Spouse will call back to reschedule pt's appointments once a discharge plan is in place. Angle Kamara RN documented in this encounter [facility] 11-28-2021 Miscellaneous Notes DISCHARGE CALL BACK Today's date: November 28, 2021 Notified of Pt discharge by: Pt's spouse Patient discharged on 11/25/21 from [facility] to Home with Homecare Nurse Primary Cancer Diagnosis: MDS Admitting Diagnosis: Myocardial Infarction Discharge Summary/SBAR reviewed: No - requested from HIM. Handoff Discussed with Transitional Typesetting Supervisor: N/A Psychosocial Risk Factors: None If patient [...] be calling to schedule f/u w/ pt's learning administrator. Discharged home w/ new meds. Spouse will be bringing new meds w/ them to tomorrow's f/u appointment. Angle Kamara RN documented in this encounter [facility] 11-27-2021 Note MR#: [id number] I [facility] Pt. 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 ASSESSMENT AND PLAN: 1. Ipj-NU-jytrbkzvo myocardial infarction, likely type 2, was temporarily [...] 2 and was stable at discharge. 6. Opxq-sd-qjstmueu mitral regurgitation noted on TE. 7. Coronary [...] syndrome, currently on azacitidine injections monthly per [facility]. The patient's hemoglobin was stable while at [...] the encoun (more content not included)... [facility] 11-16-2021 Miscellaneous Notes Per donald Asher/Dr. Brynn kumar for patient to wait for transfusion until Friday. Patient has been scheduled for transfusion @ [place] Friday, 11/19 @ 9:00 am. He will need to get TSC tomorrow before noon and go through the ER entrance. Spoke w/ November 16, 2021 12:01 PM and confirmed. Ada Perez Pt's notified and states the pt has c/o increased fatigue. Would like to proceed w/ transfusion @ [facility]. Orders given to MARII Puga. Angle Kamara RN Call placed to pt. No answer. Message left requesting call back. Angle Kamara RN ----- Message from Asher Hummel MD sent at 11/15/2021 4:32 PM EDT ----- Probably could use a transfusion if he feels bad. documented in this encounter [facility] 11-01-2021 History of Present illness Narrative Miriam Elizabeth RN documented [facility] [place] 10-29-2021 Miscellaneous Notes FYI: Pt's spouse reports that the pt is scheduled to receive a blood transfusion @ [facility] tomorrow @ 8 AM. Angle Kamara RN documented in this encounter [facility] [place] 10-29-2021 History of Present illness Narrative Lab work at the [facility] today, results scanned in. No ANC available, ok to treat per Dr. Watt. Lexi Velasquez RN documented in this encounter [facility] [place] 10-25-2021 History of Present illness Narrative Images from the original note were not included. NAME: Sandip Broussard CLINIC NO.: [id number] DATE OF SERVICE: October 25, 2021 Some [...] Aldactone, Terazosin and Norvasc TREATMENT TO DATE: 307/09/2021 - Current: Vidaza [...] surgery w/ Dr. Marshall Last fall in [place]. Has tranexamic acid at home. Requesting ENT referral at [facility]. He is dehydrated and not keeping up with fluids. Sap Bobj Developer is elevated exacerbating cause was likely letting [...] Eliquis daily at the recommendation of his learning administrator. Since stopping the aspirin he has not [...] Drug use: Not on file Wilfred Martinez APRN.PLASTIC WELDER Services Provided at: [place], [place] CC: Dr. Flash Gomez (Cardiology [facility]) Dr. Oumou Wade documented in this encounter [facility] [place] 10-15-2021 History of Present illness Narrative History: Sandip Broussard, a 80 year old male, presents for [...] EAC free of lesions. TM retracted. 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 Assessment/Plan: 1. H/o ETD. [...] 3 - Low documented in this encounter [facility] [place] Evaluation + Plan note Future Appointments Appointment Date:03/10/2023 02:00:00 PM Scheduled Provider: [facility] App[facility] Type:FM Medicare Wellness Subsequent Appointment Date:03/10/2023 02:40:00 PM Scheduled Provider:Álvaro Barton MD Location:[facility] Appointment Type: Open Diagnostic Tests PendingUrinalysis 01/10/23 [facility] Evaluation + Plan note Future Appointments Appointment Date:03/10/2023 02:00:00 PM Scheduled Provider: [facility] Appoint[facility] Type: Medicare Wellness Subsequent Appointment Date:03/10/2023 02:40:00 PM Scheduled Provider:Álvaro Barton MD Location:[facility] Appointment Type: Open [facility] Evaluation + Plan note Future Appointments Appointment Date:03/17/2023 02:40:00 PM Scheduled Provider:Álvaro Barton MD [facility] App[facility] Type: Open Appointment Date:03/18/2023 01:00:00 PM Scheduled Provider:ANTONIA MERCER MD Location:.ONCOLOGY Appointment Type:ONC Supportive Care New (FT) Appointment Date:04/16/2023 02:40:00 PM Scheduled Provider:Álvaro Barton MD [facility] App[facility] Type: Open Appointment Date:04/22/2023 02:00:00 PM Scheduled Provider: Location:.ONCOLOGY Appointment Type:ONC Office Visit 30 (FT) Appointment Date:04/05/2024 02:00:00 PM Scheduled Provider: Location: [facility] Appointment Type: Medicare Wellness [facility] Diff 03/11/23Comprehensive Metabolic Panel 04/01/23Lactate Dehydrogenase 04/01/23 Future Scheduled TestsStool Occult Blood 03/12/23 [facility] Evaluation note Diagnosis Chronic Eustachian tube dysfunction, bilateral- Primary Epistaxis [facility] Diagnosis CRF (chronic renal failure), stage 4 (severe) (HCC)- Primary Anemia of chronic renal failure, stage 4 (severe) (HCC) 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 loss Iron deficiency anemia secondary to blood loss (chronic) CKD (chronic kidney disease) stage 4, GFR 15-29 ml/min (HCC) Chronic kidney disease, Stage IV (severe) Myelodysplastic syndrome (HCC) Myelodysplastic syndrome, unspecified [facility] Diagnosis Myelodysplastic syndrome (HCC)- Primary [...] prostate Hyperkalemia Hyperpotassemia [facility] Diagnosis Myelodysplastic syndrome (HCC)- Primary Myelodysplastic syndrome, unspecified [facility] Diagnosis Myelodysplastic syndrome (HCC)- Primary Myelodysplastic syndrome, unspecified [facility] Diagnosis Myelodysplastic syndrome (HCC)- Primary Myelodysplastic syndrome, unspecified [facility] Diagnosis Myelodysplastic syndrome (HCC)- Primary Myelodysplastic syndrome, unspecified CRF (chronic renal failure), stage 4 (severe) (HCC) [facility] Diagnosis Anemia of chronic renal failure, stage 4 (severe) (HCC)- Primary CRF (chronic renal failure), stage 4 (severe) (HCC) 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 loss Iron deficiency anemia secondary to blood loss (chronic) CKD (chronic kidney disease) stage 4, GFR 15-29 ml/min (HCC) Chronic kidney disease, Stage IV (severe) Myelodysplastic syndrome (HCC) Myelodysplastic syndrome, unspecified [facility] Diagnosis Myelodysplastic syndrome (HCC)- Primary Myelodysplastic syndrome, unspecified CRF (chronic renal failure), stage 4 (severe) (HCC) Anemia of chronic renal failure, stage 4 (severe) (HCC) 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 [facility] Diagnosis Acute heart failure, unspecified heart failure type (HCC)- Primary [facility]* Diagnosis Myelodysplastic syndrome (HCC)- Primary Myelodysplastic syndrome, unspecified CRF (chronic renal failure), stage 4 (severe) (HCC) Anemia of chronic renal failure, stage 4 (severe) (HCC) 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 loss Iron deficiency anemia secondary to blood loss (chronic) CKD (chronic kidney disease) stage 4, GFR 15-29 ml/min (HCC) Chronic kidney disease, Stage IV (severe) documented in this encounter [facility] note* Diagnosis Myelodysplastic syndrome (HCC)- Primary Myelodysplastic syndrome, unspecified [facility] Diagnosis Myelodysplastic syndrome (HCC)- Primary Myelodysplastic syndrome, unspecified documented in this encounter [facility] note* Diagnosis Myelodysplastic syndrome (HCC)- Primary Myelodysplastic syndrome, unspecified documented in this encounter [facility] note* Diagnosis Myelodysplastic syndrome (HCC)- Primary Myelodysplastic syndrome, unspecified CRF (chronic renal failure), stage 4 (severe) (HCC) Anemia of chronic renal failure, stage 4 (severe) (HCC) 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 documented in this encounter [facility] note* Diagnosis Anemia of chronic renal failure, stage 4 (severe) (HCC)- Primary 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 loss Iron deficiency anemia secondary to blood loss (chronic) Myelodysplastic syndrome (HCC) Myelodysplastic syndrome, unspecified [facility] Diagnosis Myelodysplastic syndrome (HCC)- Primary Myelodysplastic syndrome, unspecified CRF (chronic renal failure), stage 4 (severe) (HCC) Anemia of chronic renal failure, stage 4 (severe) (HCC) 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 loss Iron deficiency anemia secondary to blood loss (chronic) CKD (chronic kidney disease) stage 4, GFR 15-29 ml/min (HCC) Chronic kidney disease, Stage IV (severe) [facility] Diagnosis Myelodysplastic syndrome (HCC)- Primary Myelodysplastic syndrome, unspecified [facility] Diagnosis Myelodysplastic syndrome (HCC)- Primary Myelodysplastic syndrome, unspecified CRF (chronic renal failure), stage 4 (severe) (HCC) 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 [facility] Diagnosis CRF (chronic renal failure), stage 4 (severe) (HCC)- Primary Myelodysplastic syndrome (HCC) Myelodysplastic syndrome, unspecified [facility] [place] Diagnosis Myelodysplastic syndrome (HCC) Myelodysplastic syndrome, unspecified CRF (chronic renal failure), stage 4 (severe) (HCC) Anemia of chronic renal failure, stage 4 (severe) (HCC) 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 [facility]* Diagnosis Anemia of chronic renal failure, stage 4 (severe) (HCC)- Primary [facility] Diagnosis Myelodysplastic syndrome (HCC)- Primary Myelodysplastic syndrome, unspecified Anemia of chronic renal failure, stage 4 (severe) (HCC) [facility] Diagnosis Anemia of chronic renal failure, stage 4 (severe) (HCC)- Primary 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 loss Iron deficiency anemia secondary to blood loss (chronic) Myelodysplastic syndrome (HCC) Myelodysplastic syndrome, unspecified CRF (chronic renal failure), stage 4 (severe) (HCC) CKD (chronic kidney disease) stage 4, GFR 15-29 ml/min (HCC) Chronic kidney disease, Stage IV (severe) [facility]* Diagnosis CRF (chronic renal failure), stage 4 (severe) (HCC)- Primary [facility]* Diagnosis Myelodysplastic syndrome (HCC)- Primary Myelodysplastic syndrome, unspecified CRF (chronic renal failure), stage 4 (severe) (HCC) [facility]* Diagnosis CRF (chronic renal failure), stage 4 (severe) (HCC)- Primary Anemia of chronic renal failure, stage 4 (severe) (HCC) 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 loss Iron deficiency anemia secondary to blood loss (chronic) CKD (chronic kidney disease) stage 4, GFR 15-29 ml/min (HCC) Chronic kidney disease, Stage IV (severe) Myelodysplastic syndrome (HCC) Myelodysplastic syndrome, unspecified documented in this encounter [facility] note* Diagnosis Anemia of chronic renal failure, stage 4 (severe) (HCC)- Primary 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 loss Iron deficiency anemia secondary to blood loss (chronic) Myelodysplastic syndrome (HCC) Myelodysplastic syndrome, unspecified CRF (chronic renal failure), stage 4 (severe) (HCC) CKD (chronic kidney disease) stage 4, GFR 15-29 ml/min (HCC) Chronic kidney disease, Stage IV (severe) [facility]* Diagnosis Myelodysplastic syndrome (HCC)- Primary Myelodysplastic syndrome, unspecified CKD (chronic kidney disease) stage 4, GFR 15-29 ml/min (HCC) Chronic kidney disease, Stage IV (severe) Anemia of chronic renal failure, stage 4 (severe) (HCC) 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 loss Iron deficiency anemia secondary to blood loss (chronic) documented in this encounter [facility] note* Diagnosis Myelodysplastic syndrome (HCC)- Primary Myelodysplastic syndrome, unspecified Anemia of chronic renal failure, stage 4 (severe) (HCC) documented in this encounter [facility] note* Diagnosis Anemia of chronic renal failure, stage 4 (severe) (HCC)- Primary 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 loss Iron deficiency anemia secondary to blood loss (chronic) Myelodysplastic syndrome (HCC) Myelodysplastic syndrome, unspecified CRF (chronic renal failure), stage 4 (severe) (HCC) CKD (chronic kidney disease) stage 4, GFR 15-29 ml/min (HCC) Chronic kidney disease, Stage IV (severe) [facility] [place] Diagnosis Myelodysplastic syndrome (HCC)- Primary Myelodysplastic syndrome, unspecified CKD (chronic kidney disease) stage 4, GFR 15-29 ml/min (HCC) Chronic kidney disease, Stage IV (severe) Anemia of chronic renal failure, stage 4 (severe) (HCC) [facility] Diagnosis Malignant neoplasm of prostate (HCC)- Primary Malignant neoplasm of prostate [facility] Diagnosis Myelodysplastic syndrome (HCC)- Primary Myelodysplastic syndrome, unspecified [facility] Diagnosis MDS (myelodysplastic syndrome) (HCC)- Primary Myelodysplastic syndrome, unspecified [facility] Diagnosis Myelodysplastic syndrome (HCC)- Primary Myelodysplastic syndrome, unspecified CRF (chronic renal failure), stage 4 (severe) (HCC) [facility] Diagnosis Myelodysplastic syndrome (HCC)- Primary Myelodysplastic syndrome, unspecified CRF (chronic renal failure), stage 4 (severe) (HCC) Anemia of chronic renal failure, stage 4 (severe) (HCC) [facility] Diagnosis CRF (chronic renal failure), stage 4 (severe) (HCC)- Primary Anemia of chronic renal failure, stage 4 (severe) (HCC) 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 loss Iron deficiency anemia secondary to blood loss (chronic) CKD (chronic kidney disease) stage 4, GFR 15-29 ml/min (HCC) Chronic kidney disease, Stage IV (severe) Myelodysplastic syndrome (HCC) Myelodysplastic syndrome, unspecified [facility] Diagnosis Anemia of chronic renal failure, stage 4 (severe) (HCC)- Primary 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 loss Iron deficiency anemia secondary to blood loss (chronic) Myelodysplastic syndrome (HCC) Myelodysplastic syndrome, unspecified CRF (chronic renal failure), stage 4 (severe) (HCC) CKD (chronic kidney disease) stage 4, GFR 15-29 ml/min (HCC) Chronic kidney disease, Stage IV (severe) [facility]* Diagnosis MDS (myelodysplastic syndrome) (HCC)- Primary Myelodysplastic syndrome, unspecified Anemia of chronic renal failure, stage 4 (severe) (HCC) 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 CRF (chronic renal failure), stage 4 (severe) (HCC) documented in this encounter [facility] note* Diagnosis CRF (chronic renal failure), stage 4 (severe) (HCC)- Primary Anemia of chronic renal failure, stage 4 (severe) (HCC) 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 loss Iron deficiency anemia secondary to blood loss (chronic) CKD (chronic kidney disease) stage 4, GFR 15-29 ml/min (HCC) Chronic kidney disease, Stage IV (severe) Myelodysplastic syndrome (HCC) Myelodysplastic syndrome, unspecified [facility] Diagnosis Myelodysplastic syndrome (HCC)- Primary Myelodysplastic [...] inoculation against influenza documented in this encounter [facility] note* Diagnosis Myelodysplastic syndrome (HCC)- Primary Myelodysplastic syndrome, unspecified MDS (myelodysplastic syndrome) (HCC) Myelodysplastic syndrome, unspecified 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 CRF (chronic renal failure), stage 4 (severe) (HCC) documented in this encounter [facility] note* Diagnosis Myelodysplastic syndrome (HCC)- Primary Myelodysplastic syndrome, unspecified CRF (chronic renal failure), stage 4 (severe) (HCC) Anemia of chronic renal failure, stage 4 (severe) (HCC) 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 loss Iron deficiency anemia secondary to blood loss (chronic) CKD (chronic kidney disease) stage 4, GFR 15-29 ml/min (HCC) Chronic kidney disease, Stage IV (severe) [facility]* Diagnosis Myelodysplastic syndrome (HCC)- Primary Myelodysplastic syndrome, unspecified documented in this encounter [facility] note* Diagnosis MDS (myelodysplastic syndrome) (HCC)- Primary Myelodysplastic syndrome, unspecified Dependent for standing 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 CRF (chronic renal failure), stage 4 (severe) (HCC) 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 documented in this encounter [facility] note* Diagnosis Myelodysplastic syndrome (HCC)- Primary Myelodysplastic syndrome, unspecified CRF (chronic renal failure), stage 4 (severe) (HCC) Anemia of chronic renal failure, stage 4 (severe) (HCC) 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 loss Iron deficiency anemia secondary to blood loss (chronic) CKD (chronic kidney disease) stage 4, GFR 15-29 ml/min (HCC) Chronic kidney disease, Stage IV (severe) documented in this encounter [facility] note* Diagnosis MDS (myelodysplastic syndrome) (HCC)- Primary Myelodysplastic syndrome, unspecified documented in this encounter [facility] note* Diagnosis Myelodysplastic syndrome (HCC)- Primary Myelodysplastic syndrome, unspecified 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 CRF (chronic renal failure), stage 4 (severe) (HCC) CKD (chronic kidney disease) stage 4, GFR 15-29 ml/min (HCC) Chronic kidney disease, Stage IV (severe) documented in this encounter [facility] note* Diagnosis Myelodysplastic syndrome (HCC)- Primary Myelodysplastic syndrome, unspecified CRF (chronic renal failure), stage 4 (severe) (HCC) Anemia of chronic renal failure, stage 4 (severe) (HCC) 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 loss Iron deficiency anemia secondary to blood loss (chronic) CKD (chronic kidney disease) stage 4, GFR 15-29 ml/min (HCC) Chronic kidney disease, Stage IV (severe) documented in this encounter [facility] note* Diagnosis MDS (myelodysplastic syndrome) (HCC)- Primary Myelodysplastic syndrome, unspecified CRF (chronic renal failure), stage 4 (severe) (HCC) Anemia of chronic renal failure, stage 4 (severe) (HCC) [facility] Diagnosis Myelodysplastic syndrome (HCC)- Primary Myelodysplastic syndrome, unspecified [facility] Diagnosis MDS (myelodysplastic syndrome) (HCC)- Primary [...] Stage IV (severe) [facility] Diagnosis Myelodysplastic syndrome (HCC)- Primary Myelodysplastic syndrome, unspecified Anemia of chronic renal failure, stage 4 (severe) (HCC) 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 loss Iron deficiency anemia secondary to blood loss (chronic) CRF (chronic renal failure), stage 4 (severe) (HCC) CKD (chronic kidney disease) stage 4, GFR 15-29 ml/min (HCC) Chronic kidney disease, Stage IV (severe) [facility]* Diagnosis Myelodysplastic syndrome (HCC)- Primary Myelodysplastic syndrome, unspecified [facility] Diagnosis MDS (myelodysplastic syndrome) (HCC)- Primary Myelodysplastic syndrome, unspecified CRF (chronic renal failure), stage 4 (severe) (HCC) documented in this encounter [facility] note* Diagnosis Myelodysplastic syndrome (HCC)- Primary Myelodysplastic syndrome, unspecified CRF (chronic renal failure), stage 4 (severe) (HCC) Anemia of chronic renal failure, stage 4 (severe) (HCC) 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 loss Iron deficiency anemia secondary to blood loss (chronic) CKD (chronic kidney disease) stage 4, GFR 15-29 ml/min (HCC) Chronic kidney disease, Stage IV (severe) documented in this encounter [facility] note* Diagnosis Myelodysplastic syndrome (HCC)- Primary Myelodysplastic syndrome, unspecified [facility] Diagnosis Myelodysplastic syndrome (HCC)- Primary Myelodysplastic syndrome, unspecified CRF (chronic renal failure), stage 4 (severe) (HCC) Anemia of chronic renal failure, stage 4 (severe) (HCC) 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 loss Iron deficiency anemia secondary to blood loss (chronic) CKD (chronic kidney disease) stage 4, GFR 15-29 ml/min (HCC) Chronic kidney disease, Stage IV (severe) [facility]* Diagnosis Myelodysplastic syndrome (HCC)- Primary Myelodysplastic syndrome, unspecified 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 Anemia of chronic renal failure, stage 4 (severe) (HCC) documented in this encounter [facility] note* Diagnosis MDS (myelodysplastic syndrome) (HCC)- Primary Myelodysplastic syndrome, unspecified documented in this encounter [facility] note* Diagnosis Myelodysplastic syndrome (HCC)- Primary Myelodysplastic syndrome, unspecified documented in this encounter [facility] note* Diagnosis MDS (myelodysplastic syndrome) (HCC)- Primary Myelodysplastic syndrome, unspecified 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 Anemia of chronic renal failure, stage 4 (severe) (HCC) Myelodysplastic syndrome (HCC) Myelodysplastic syndrome, unspecified documented in this encounter [facility] note* Diagnosis MDS (myelodysplastic syndrome) (HCC)- Primary Myelodysplastic syndrome, unspecified Anemia of chronic renal failure, stage 4 (severe) (HCC) CRF (chronic renal failure), stage 4 (severe) (HCC) documented in this encounter [facility] note* Diagnosis Anemia of chronic renal failure, stage 4 (severe) (HCC)- Primary 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 loss Iron deficiency anemia secondary to blood loss (chronic) Myelodysplastic syndrome (HCC) Myelodysplastic syndrome, unspecified documented in this encounter [facility] note* Diagnosis Myelodysplastic syndrome (HCC)- Primary Myelodysplastic syndrome, unspecified CRF (chronic renal failure), stage 4 (severe) (HCC) Anemia of chronic renal failure, stage 4 (severe) (HCC) 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 loss Iron deficiency anemia secondary to blood loss (chronic) CKD (chronic kidney disease) stage 4, GFR 15-29 ml/min (HCC) Chronic kidney disease, Stage IV (severe) [facility] Diagnosis MDS (myelodysplastic syndrome) (HCC)- Primary Myelodysplastic syndrome, unspecified Anemia of chronic renal failure, stage 4 (severe) (HCC) CRF (chronic renal failure), stage 4 (severe) (HCC) 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 Myelodysplastic syndrome (HCC) Myelodysplastic syndrome, unspecified [facility] Diagnosis 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 loss- Primary Iron deficiency anemia secondary to blood loss (chronic) MDS (myelodysplastic syndrome) (HCC) Myelodysplastic syndrome, unspecified Anemia of chronic renal failure, stage 4 (severe) (HCC) [facility] Diagnosis Myelodysplastic syndrome (HCC)- Primary Myelodysplastic syndrome, unspecified Anemia of chronic renal failure, stage 4 (severe) (HCC) 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 [facility] Diagnosis Myelodysplastic syndrome (HCC)- Primary Myelodysplastic syndrome, unspecified [facility] Diagnosis Myelodysplastic syndrome (HCC)- Primary Myelodysplastic syndrome, unspecified CRF (chronic renal failure), stage 4 (severe) (HCC) Anemia of chronic renal failure, stage 4 (severe) (HCC) 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 loss Iron deficiency anemia secondary to blood loss (chronic) CKD (chronic kidney disease) stage 4, GFR 15-29 ml/min (HCC) Chronic kidney disease, Stage IV (severe) documented in this encounter [facility] note* Diagnosis MDS (myelodysplastic syndrome) (HCC)- Primary [...] due to hypovolemia [facility] Diagnosis Myelodysplastic syndrome (HCC)- Primary Myelodysplastic syndrome, unspecified documented in this encounter [facility] note* Diagnosis MDS (myelodysplastic syndrome) (HCC)- Primary Myelodysplastic syndrome, unspecified Anemia of chronic renal failure, stage 4 (severe) (HCC) documented in this encounter [facility] note* Diagnosis MDS (myelodysplastic syndrome) (HCC)- Primary Myelodysplastic syndrome, unspecified 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 loss Iron deficiency anemia secondary to blood loss (chronic) Anemia of chronic renal failure, stage 4 (severe) (HCC) [facility] Diagnosis Anemia of chronic renal failure, stage 4 (severe) (HCC)- Primary 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 loss Iron deficiency anemia secondary to blood loss (chronic) MDS (myelodysplastic syndrome) (HCC) Myelodysplastic syndrome, unspecified [facility] Diagnosis MDS (myelodysplastic syndrome) (HCC)- Primary Myelodysplastic syndrome, unspecified Anemia of chronic renal failure, stage 4 (severe) (HCC) 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 loss Iron deficiency anemia secondary to blood loss (chronic) [facility] Diagnosis MDS (myelodysplastic syndrome) (HCC)- Primary Myelodysplastic syndrome, unspecified Anemia of chronic renal failure, stage 4 (severe) (HCC) documented in this encounter [facility] note* Diagnosis MDS (myelodysplastic syndrome) (HCC)- Primary Myelodysplastic syndrome, unspecified Anemia, unspecified type documented in this encounter [facility] note* Diagnosis MDS (myelodysplastic syndrome) (HCC)- Primary Myelodysplastic syndrome, unspecified [facility] Diagnosis Anemia of chronic renal failure, stage 4 (severe) (HCC)- Primary 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 loss Iron deficiency anemia secondary to blood loss (chronic) MDS (myelodysplastic syndrome) (HCC) Myelodysplastic syndrome, unspecified [facility] Diagnosis MDS (myelodysplastic syndrome) (HCC)- Primary Myelodysplastic syndrome, unspecified Anemia of chronic renal failure, stage 4 (severe) (HCC) Type 2 diabetes mellitus with stage 3 chronic kidney disease, with long-term current use of insulin, unspecified whether stage 3a or 3b CKD (HCC) documented in this encounter [facility] Narrative No data available for this section [facility] No data available for this section [facility] No data available for this section [facility] Summary Purpose Family History No Family History Records FoundNo Family History Records FoundNo Family History Records FoundNo Family History Records FoundNo Family History Records FoundNo Family History Records FoundNo Family History Records Found Advance Directives No Advanced Directives Records FoundDocuments on File Type Date Recorded Patient Barrel Raiser Expl anation Advance Directive(s) 07/06/2020 6:15 PM Documents on File Type Date Recorded Patient Barrel Raiser Expl anation Advance Directive(s) 07/06/2020 6:15 PM [...] 10 mg, ORAL, ONCE, 1 dose, On 09/05/21 at 1530 Given 09/05/2021 3:07 PM EST [...] Units, SUBCUTANEOUS, ONCE, 1 dose, On Jeannette 11/08/21 at 1600, Refrigerate - Protect From Light [...] 80,000 Units, SUBCUTANEOUS, ONCE, 1 dose, On Fri12/17/21 at 1430, Refrigerate - Protect From Light [...] to 3 most recent administrations Medication Order [facility] Dose Rate Site cyanocobalamin 1,000 mcg injection [...] to 3 most recent administrations Medication Order [facility] Dose Rate Site epoetin larisa-epbx 80,000 Units injection (RETACRIT) 80,000 Units, SUBCUTANEOUS, ONCE, 1 dose, On Fri05/13/22 at 1500, Refrigerate - Protect From Light - Do Not Shake Given 05/13/2022 2:54 PM EDT 80,000 Units Arm, Right Inactive Administered Medications - up to 3 most recent administrations Medication Order [facility] Dose Rate Site decitabine 22.36 mg subcutaneous [...] to 3 most recent administrations Medication Order [facility] Dose Rate Site decitabine 22.36 mg [...] to 3 most recent administrations Medication Order [facility] [place] Date Dose Rate Site decitabine 21.1 mg subcutaneous injection (DACOGEN) 21.1 mg (0.2 mg/kg/dose 105.5 kg Treatment plan Recorded weight), SUBCUTANEOUS, ONCE, 1 dose, On Fri07/09/22 at 1430, Immediate Use. Hazardous Chemotherapy Drug: Use appropriate PPE. Refrigerate. Given 07/09/2022 2:32 PM EST 21.1 mg Arm, Left Inactive Administered Medications - up to 3 most recent administrations Medication Order [facility] Dose Rate Site decitabine 21.1 mg [...] to 3 most recent administrations Medication Order [facility] Dose Rate Site decitabine 21.1 mg subcutaneous injection (DACOGEN) 21.1 mg (0.2 mg/kg/dose 105.5 kg Treatment plan Recorded weight), SUBCUTANEOUS, ONCE, 1 dose, On Fri07/23/22 at 1530, EXP: 1552 07/23/22 Hazardous Chemotherapy Drug: Use appropriate PPE. Refrigerate. Given 07/23/2022 3:44 PM EST 21.1 mg Arm, Right Inactive Administered Medications - up to 3 most recent administrations Medication Order [facility] Dose Rate Site cyanocobalamin 1,000 mcg injection [...] to 3 most recent administrations Medication Order [facility] Action Date Dose Rate Site decitabine 21.1 [...] to 3 most recent administrations Medication Order [facility] Action Dose Rate Site decitabine 21.1 mg subcutaneous injection (DACOGEN) 21.1 mg (0.2 mg/kg/dose 105.5 kg Treatment plan Recorded weight), SUBCUTANEOUS, ONCE, 1 dose, On Fri08/14/22 at 1430, EXP:Immediate use Hazardous Chemotherapy Drug: Use appropriate PPE. Refrigerate. Given 08/14/2022 2:50 PM EST 21.1 mg Arm, Right Inactive Administered Medications - up to 3 most recent administrations Medication Order [facility] Action Action Dose Rate Site [...] to 3 most recent administrations Medication Order [facility] Action Action Date Dose Rate Site luspatercept-aamt [...] to 3 most recent administrations Medication Order [facility] Action Action Date Dose Rate [...] Referral Specialty Diagnoses / Procedures Referred By Jorge angulo Referred To Contact Diagnoses Myelodysplastic syndrome (HCC) Procedures CONSULT TO HEMATOLOGY/ONCOLOGY OFFICE/OUTPATIENT NEW HIGH MDM 60-74 MINUTES Asher Hummel MD [address] [place] [address] [place] [id number] Referral ID Status Reason Start Date Expiration Date Visits Requested Visits Authorized [id number] Authorized PCP Requested Referral 03/15/2022 03/15/2023 1 1 Additional Source Comments (unrecognized sect ion and content) No Status Records FoundNo Status Records FoundNo Status Records FoundNo Status Records FoundNo Status Records FoundNo Status Records FoundNo Status Records Found INFORMATION SOURCE (unrecogn ized section and content) DATE CREATED AUTHOR 07/05/2018 [facility] DATE CREATED AUTHOR AUTHOR'S ORGANIZ ATION 12/22/2021 [facility] DATE CREATED AUTHOR AUTHOR'S ORGANIZ ATION 01/03/2023 [facility] DATE CREATED AUTHOR AUTHOR'S ORGANIZ ATION 01/05/2023 [facility] DATE CREATED AUTHOR AUTHOR'S ORGANIZ ATION 08/20/2023 [facility] DATE CREATED AUTHOR AUTHOR'S ORGANIZ ATION 09/27/2023 [facility] DATE CREATED AUTHOR AUTHOR'S ORGANIZ ATION 09/30/2023 [facility] Source Comments (unrecognize d section and content) In the event this informatio n is protected by the Federal Confidentiality of Alcohol and Drug Abuse Patient Records regulations: The Federal rules restrict any use of the information to criminally investigate or prosecute any alcohol or drug abuse patient.[facility] event this information is protected by the Federal Confidentiality of Alcohol and Drug Abuse Patient Records regulations: The Federal rules restrict any use of the information to criminally investigate or prosecute any alcohol or drug abuse patient.[facility] the event this information is protected by the Federal Confidentiality of Alcohol and Drug Abuse Patient Records regulations: The Federal rules restrict any use of the information to criminally investigate or prosecute any alcohol or drug abuse patient.[facility] the event this information is protected by the Federal Confidentiality of Alcohol and Drug Abuse Patient Records regulations: The Federal rules restrict any use of the information to criminally investigate or prosecute any alcohol or drug abuse patient.[facility] the event this information is protected by the Federal Confidentiality of Alcohol and Drug Abuse Patient Records regulations: The Federal rules restrict any use of the information to criminally investigate or prosecute any alcohol or drug abuse patient.[facility] the event this information is protected by the Federal Confidentiality of Alcohol and Drug Abuse Patient Records regulations: The Federal rules restrict any use of the information to criminally investigate or prosecute any alcohol or drug abuse patient.[facility] the event this information is protected by the Federal Confidentiality of Alcohol and Drug Abuse Patient Records regulations: The Federal rules restrict any use of the information to criminally investigate or prosecute any alcohol or drug abuse patient.[facility] the event this information is protected by the Federal Confidentiality of Alcohol and Drug Abuse Patient Records regulations: The Federal rules restrict any use of the information to criminally investigate or prosecute any alcohol or drug abuse patient.[facility] the event this information is protected by the Federal Confidentiality of Alcohol and Drug Abuse Patient Records regulations: The Federal rules restrict any use of the information to criminally investigate or prosecute any alcohol or drug abuse patient.[facility] the event this information is protected by the Federal Confidentiality of Alcohol and Drug Abuse Patient Records regulations: The Federal rules restrict any use of the information to criminally investigate or prosecute any alcohol or drug abuse patient.[facility] the event this information is protected by the Federal Confidentiality of Alcohol and Drug Abuse Patient Records regulations: The Federal rules restrict any use of the information to criminally investigate or prosecute any alcohol or drug abuse patient.[facility] the event this information is protected by the Federal Confidentiality of Alcohol and Drug Abuse Patient Records regulations: The Federal rules restrict any use of the information to criminally investigate or prosecute any alcohol or drug abuse patient.[facility] the event this information is protected by the Federal Confidentiality of Alcohol and Drug Abuse Patient Records regulations: The Federal rules restrict any use of the information to criminally investigate or prosecute any alcohol or drug abuse patient.[facility] the event this information is protected by the Federal Confidentiality of Alcohol and Drug Abuse Patient Records regulations: The Federal rules restrict any use of the information to criminally investigate or prosecute any alcohol or drug abuse patient.[facility] the event this information is protected by the Federal Confidentiality of Alcohol and Drug Abuse Patient Records regulations: The Federal rules restrict any use of the information to criminally investigate or prosecute any alcohol or drug abuse patient.[facility] the event this information is protected by the Federal Confidentiality of Alcohol and Drug Abuse Patient Records regulations: The Federal rules restrict any use of the information to criminally investigate or prosecute any alcohol or drug abuse patient.[facility] the event this information is protected by the Federal Confidentiality of Alcohol and Drug Abuse Patient Records regulations: The Federal rules restrict any use of the information to criminally investigate or prosecute any alcohol or drug abuse patient.[facility] the event this information is protected by the Federal Confidentiality of Alcohol and Drug Abuse Patient Records regulations: The Federal rules restrict any use of the information to criminally investigate or prosecute any alcohol or drug abuse patient.[facility] the event this information is protected by the Federal Confidentiality of Alcohol and Drug Abuse Patient Records regulations: The Federal rules restrict any use of the information to criminally investigate or prosecute any alcohol or drug abuse patient.[facility] the event this information is protected by the Federal Confidentiality of Alcohol and Drug Abuse Patient Records regulations: The Federal rules restrict any use of the information to criminally investigate or prosecute any alcohol or drug abuse patient.[facility] the event this information is protected by the Federal Confidentiality of Alcohol and Drug Abuse Patient Records regulations: The Federal rules restrict any use of the information to criminally investigate or prosecute any alcohol or drug abuse patient.[facility] the event this information is protected by the Federal Confidentiality of Alcohol and Drug Abuse Patient Records regulations: The Federal rules restrict any use of the information to criminally investigate or prosecute any alcohol or drug abuse patient.[facility] the event this information is protected by the Federal Confidentiality of Alcohol and Drug Abuse Patient Records regulations: The Federal rules restrict any use of the information to criminally investigate or prosecute any alcohol or drug abuse patient.[facility] the event this information is protected by the Federal Confidentiality of Alcohol and Drug Abuse Patient Records regulations: The Federal rules restrict any use of the information to criminally investigate or prosecute any alcohol or drug abuse patient.[facility] the event this information is protected by the Federal Confidentiality of Alcohol and Drug Abuse Patient Records regulations: The Federal rules restrict any use of the information to criminally investigate or prosecute any alcohol or drug abuse patient.[facility] the event this information is protected by the Federal Confidentiality of Alcohol and Drug Abuse Patient Records regulations: The Federal rules restrict any use of the information to criminally investigate or prosecute any alcohol or drug abuse patient.[facility] the event this information is protected by the Federal Confidentiality of Alcohol and Drug Abuse Patient Records regulations: The Federal rules restrict any use of the information to criminally investigate or prosecute any alcohol or drug abuse patient.[facility] the event this information is protected by the Federal Confidentiality of Alcohol and Drug Abuse Patient Records regulations: The Federal rules restrict any use of the information to criminally investigate or prosecute any alcohol or drug abuse patient.[facility] the event this information is protected by the Federal Confidentiality of Alcohol and Drug Abuse Patient Records regulations: The Federal rules restrict any use of the information to criminally investigate or prosecute any alcohol or drug abuse patient.[facility] the event this information is protected by the Federal Confidentiality of Alcohol and Drug Abuse Patient Records regulations: The Federal rules restrict any use of the information to criminally investigate or prosecute any alcohol or drug abuse patient.[facility] the event this information is protected by the Federal Confidentiality of Alcohol and Drug Abuse Patient Records regulations: The Federal rules restrict any use of the information to criminally investigate or prosecute any alcohol or drug abuse patient.[facility] the event this information is protected by the Federal Confidentiality of Alcohol and Drug Abuse Patient Records regulations: The Federal rules restrict any use of the information to criminally investigate or prosecute any alcohol or drug abuse patient.[facility] the event this information is protected by the Federal Confidentiality of Alcohol and Drug Abuse Patient Records regulations: The Federal rules restrict any use of the information to criminally investigate or prosecute any alcohol or drug abuse patient.[facility] the event this information is protected by the Federal Confidentiality of Alcohol and Drug Abuse Patient Records regulations: The Federal rules restrict any use of the information to criminally investigate or prosecute any alcohol or drug abuse patient.[facility] the event this information is protected by the Federal Confidentiality of Alcohol and Drug Abuse Patient Records regulations: The Federal rules restrict any use of the information to criminally investigate or prosecute any alcohol or drug abuse patient.[facility] the event this information is protected by the Federal Confidentiality of Alcohol and Drug Abuse Patient Records regulations: The Federal rules restrict any use of the information to criminally investigate or prosecute any alcohol or drug abuse patient.[facility] the event this information is protected by the Federal Confidentiality of Alcohol and Drug Abuse Patient Records regulations: The Federal rules restrict any use of the information to criminally investigate or prosecute any alcohol or drug abuse patient.[facility] the event this information is protected by the Federal Confidentiality of Alcohol and Drug Abuse Patient Records regulations: The Federal rules restrict any use of the information to criminally investigate or prosecute any alcohol or drug abuse patient.[facility] the event this information is protected by the Federal Confidentiality of Alcohol and Drug Abuse Patient Records regulations: The Federal rules restrict any use of the information to criminally investigate or prosecute any alcohol or drug abuse patient.[facility] the event this information is protected by the Federal Confidentiality of Alcohol and Drug Abuse Patient Records regulations: The Federal rules restrict any use of the information to criminally investigate or prosecute any alcohol or drug abuse patient.[facility] the event this information is protected by the Federal Confidentiality of Alcohol and Drug Abuse Patient Records regulations: The Federal rules restrict any use of the information to criminally investigate or prosecute any alcohol or drug abuse patient.[facility] the event this information is protected by the Federal Confidentiality of Alcohol and Drug Abuse Patient Records regulations: The Federal rules restrict any use of the information to criminally investigate or prosecute any alcohol or drug abuse patient.[facility] the event this information is protected by the Federal Confidentiality of Alcohol and Drug Abuse Patient Records regulations: The Federal rules restrict any use of the information to criminally investigate or prosecute any alcohol or drug abuse patient.[facility] the event this information is protected by the Federal Confidentiality of Alcohol and Drug Abuse Patient Records regulations: The Federal rules restrict any use of the information to criminally investigate or prosecute any alcohol or drug abuse patient.[facility] the event this information is protected by the Federal Confidentiality of Alcohol and Drug Abuse Patient Records regulations: The Federal rules restrict any use of the information to criminally investigate or prosecute any alcohol or drug abuse patient.[facility] the event this information is protected by the Federal Confidentiality of Alcohol and Drug Abuse Patient Records regulations: The Federal rules restrict any use of the information to criminally investigate or prosecute any alcohol or drug abuse patient.[facility] [place] the event this information is protected by the Federal Confidentiality of Alcohol and Drug Abuse Patient Records regulations: The Federal rules restrict any use of the information to criminally investigate or prosecute any alcohol or drug abuse patient.[facility] [place]In the event this information is protected by the Federal Confidentiality of Alcohol and Drug Abuse Patient Records regulations: The Federal rules restrict any use of the information to criminally investigate or prosecute any alcohol or drug abuse patient.[facility] [place]In the event this information is protected by the Federal Confidentiality of Alcohol and Drug Abuse Patient Records regulations: The Federal rules restrict any use of the information to criminally investigate or prosecute any alcohol or drug abuse patient.[facility] [place]In the event this information is protected by the Federal Confidentiality of Alcohol and Drug Abuse Patient Records regulations: The Federal rules restrict any use of the information to criminally investigate or prosecute any alcohol or drug abuse patient.[facility] [place]In the event this information is protected by the Federal Confidentiality of Alcohol and Drug Abuse Patient Records regulations: The Federal rules restrict any use of the information to criminally investigate or prosecute any alcohol or drug abuse patient.[facility] [place]In the event this information is protected by the Federal Confidentiality of Alcohol and Drug Abuse Patient Records regulations: The Federal rules restrict any use of the information to criminally investigate or prosecute any alcohol or drug abuse patient.[facility] [place]In the event this information is protected by the Federal Confidentiality of Alcohol and Drug Abuse Patient Records regulations: The Federal rules restrict any use of the information to criminally investigate or prosecute any alcohol or drug abuse patient.[facility] [place]In the event this information is protected by the Federal Confidentiality of Alcohol and Drug Abuse Patient Records regulations: The Federal rules restrict any use of the information to criminally investigate or prosecute any alcohol or drug abuse patient.[facility] [place]In the event this information is protected by the Federal Confidentiality of Alcohol and Drug Abuse Patient Records regulations: The Federal rules restrict any use of the information to criminally investigate or prosecute any alcohol or drug abuse patient.[facility] [place]In the event this information is protected by the Federal Confidentiality of Alcohol and Drug Abuse Patient Records regulations: The Federal rules restrict any use of the information to criminally investigate or prosecute any alcohol or drug abuse patient.[facility] [place]In the event this information is protected by the Federal Confidentiality of Alcohol and Drug Abuse Patient Records regulations: The Federal rules restrict any use of the information to criminally investigate or prosecute any alcohol or drug abuse patient.[facility] [place]In the event this information is protected by the Federal Confidentiality of Alcohol and Drug Abuse Patient Records regulations: The Federal rules restrict any use of the information to criminally investigate or prosecute any alcohol or drug abuse patient.[facility] [place]In the event this information is protected by the Federal Confidentiality of Alcohol and Drug Abuse Patient Records regulations: The Federal rules restrict any use of the information to criminally investigate or prosecute any alcohol or drug abuse patient.[facility] [place]In the event this information is protected by the Federal Confidentiality of Alcohol and Drug Abuse Patient Records regulations: The Federal rules restrict any use of the information to criminally investigate or prosecute any alcohol or drug abuse patient.[facility] [place]In the event this information is protected by the Federal Confidentiality of Alcohol and Drug Abuse Patient Records regulations: The Federal rules restrict any use of the information to criminally investigate or prosecute any alcohol or drug abuse patient.[facility] [place]In the event this information is protected by the Federal Confidentiality of Alcohol and Drug Abuse Patient Records regulations: The Federal rules restrict any use of the information to criminally investigate or prosecute any alcohol or drug abuse patient.[facility] [place]In the event this information is protected by the Federal Confidentiality of Alcohol and Drug Abuse Patient Records regulations: The Federal rules restrict any use of the information to criminally investigate or prosecute any alcohol or drug abuse patient.[facility] [place]In the event this information is protected by the Federal Confidentiality of Alcohol and Drug Abuse Patient Records regulations: The Federal rules restrict any use of the information to criminally investigate or prosecute any alcohol or drug abuse patient.[facility] [place]In the event this information is protected by the Federal Confidentiality of Alcohol and Drug Abuse Patient Records regulations: The Federal rules restrict any use of the information to criminally investigate or prosecute any alcohol or drug abuse patient.[facility] [place]In the event this information is protected by the Federal Confidentiality of Alcohol and Drug Abuse Patient Records regulations: The Federal rules restrict any use of the information to criminally investigate or prosecute any alcohol or drug abuse patient.[facility] [place]In the event this information is protected by the Federal Confidentiality of Alcohol and Drug Abuse Patient Records regulations: The Federal rules restrict any use of the information to criminally investigate or prosecute any alcohol or drug abuse patient.[facility] [place]In the event this information is protected by the Federal Confidentiality of Alcohol and Drug Abuse Patient Records regulations: The Federal rules restrict any use of the information to criminally investigate or prosecute any alcohol or drug abuse patient.[facility] [place]In the event this information is protected by the Federal Confidentiality of Alcohol and Drug Abuse Patient Records regulations: The Federal rules restrict any use of the information to criminally investigate or prosecute any alcohol or drug abuse patient.[facility] [place]In the event this information is protected by the Federal Confidentiality of Alcohol and Drug Abuse Patient Records regulations: The Federal rules restrict any use of the information to criminally investigate or prosecute any alcohol or drug abuse patient.[facility] [place]In the event this information is protected by the Federal Confidentiality of Alcohol and Drug Abuse Patient Records regulations: The Federal rules restrict any use of the information to criminally investigate or prosecute any alcohol or drug abuse patient.[facility] [place]In the event this information is protected by the Federal Confidentiality of Alcohol and Drug Abuse Patient Records regulations: The Federal rules restrict any use of the information to criminally investigate or prosecute any alcohol or drug abuse patient.[facility] [place]In the event this information is protected by the Federal Confidentiality of Alcohol and Drug Abuse Patient Records regulations: The Federal rules restrict any use of the information to criminally investigate or prosecute any alcohol or drug abuse patient.[facility] [place]In the event this information is protected by the Federal Confidentiality of Alcohol and Drug Abuse Patient Records regulations: The Federal rules restrict any use of the information to criminally investigate or prosecute any alcohol or drug abuse patient.[facility] [place]In the event this information is protected by the Federal Confidentiality of Alcohol and Drug Abuse Patient Records regulations: The Federal rules restrict any use of the information to criminally investigate or prosecute any alcohol or drug abuse patient.[facility] [place]In the event this information is protected by the Federal Confidentiality of Alcohol and Drug Abuse Patient Records regulations: The Federal rules restrict any use of the information to criminally investigate or prosecute any alcohol or drug abuse patient.[facility] [place]In the event this information is protected by the Federal Confidentiality of Alcohol and Drug Abuse Patient Records regulations: The Federal rules restrict any use of the information to criminally investigate or prosecute any alcohol or drug abuse patient.[facility] [place]In the event this information is protected by the Federal Confidentiality of Alcohol and Drug Abuse Patient Records regulations: The Federal rules restrict any use of the information to criminally investigate or prosecute any alcohol or drug abuse patient.[facility] [place]In the event this information is protected by the Federal Confidentiality of Alcohol and Drug Abuse Patient Records regulations: The Federal rules restrict any use of the information to criminally investigate or prosecute any alcohol or drug abuse patient.[facility] [place]In the event this information is protected by the Federal Confidentiality of Alcohol and Drug Abuse Patient Records regulations: The Federal rules restrict any use of the information to criminally investigate or prosecute any alcohol or drug abuse patient.[facility] [place]In the event this information is protected by the Federal Confidentiality of Alcohol and Drug Abuse Patient Records regulations: The Federal rules restrict any use of the information to criminally investigate or prosecute any alcohol or drug abuse patient.[facility] [place]In the event this information is protected by the Federal Confidentiality of Alcohol and Drug Abuse Patient Records regulations: The Federal rules restrict any use of the information to criminally investigate or prosecute any alcohol or drug abuse patient.[facility] [place]In the event this information is protected by the Federal Confidentiality of Alcohol and Drug Abuse Patient Records regulations: The Federal rules restrict any use of the information to criminally investigate or prosecute any alcohol or drug abuse patient.[facility] [place]In the event this information is protected by the Federal Confidentiality of Alcohol and Drug Abuse Patient Records regulations: The Federal rules restrict any use of the information to criminally investigate or prosecute any alcohol or drug abuse patient.[facility] [place]In the event this information is protected by the Federal Confidentiality of Alcohol and Drug Abuse Patient Records regulations: The Federal rules restrict any use of the information to criminally investigate or prosecute any alcohol or drug abuse patient.[facility] [place]In the event this information is protected by the Federal Confidentiality of Alcohol and Drug Abuse Patient Records regulations: The Federal rules restrict any use of the information to criminally investigate or prosecute any alcohol or drug abuse patient.[facility] [place]In the event this information is protected by the Federal Confidentiality of Alcohol and Drug Abuse Patient Records regulations: The Federal rules restrict any use of the information to criminally investigate or prosecute any alcohol or drug abuse patient.[facility] [place]In the event this information is protected by the Federal Confidentiality of Alcohol and Drug Abuse Patient Records regulations: The Federal rules restrict any use of the information to criminally investigate or prosecute any alcohol or drug abuse patient.[facility] [place]In the event this information is protected by the Federal Confidentiality of Alcohol and Drug Abuse Patient Records regulations: The Federal rules restrict any use of the information to criminally investigate or prosecute any alcohol or drug abuse patient.[facility] [place]In the event this information is protected by the Federal Confidentiality of Alcohol and Drug Abuse Patient Records regulations: The Federal rules restrict any use of the information to criminally investigate or prosecute any alcohol or drug abuse patient.[facility] [place]In the event this information is protected by the Federal Confidentiality of Alcohol and Drug Abuse Patient Records regulations: The Federal rules restrict any use of the information to criminally investigate or prosecute any alcohol or drug abuse patient.[facility] [place]In the event this information is protected by the Federal Confidentiality of Alcohol and Drug Abuse Patient Records regulations: The Federal rules restrict any use of the information to criminally investigate or prosecute any alcohol or drug abuse patient.[facility] [place]In the event this information is protected by the Federal Confidentiality of Alcohol and Drug Abuse Patient Records regulations: The Federal rules restrict any use of the information to criminally investigate or prosecute any alcohol or drug abuse patient.[facility] [place]In the event this information is protected by the Federal Confidentiality of Alcohol and Drug Abuse Patient Records regulations: The Federal rules restrict any use of the information to criminally investigate or prosecute any alcohol or drug abuse patient.[facility] [place]In the event this information is protected by the Federal Confidentiality of Alcohol and Drug Abuse Patient Records regulations: The Federal rules restrict any use of the information to criminally investigate or prosecute any alcohol or drug abuse patient.[facility] [place]In the event this information is protected by the Federal Confidentiality of Alcohol and Drug Abuse Patient Records regulations: The Federal rules restrict any use of the information to criminally investigate or prosecute any alcohol or drug abuse patient.[facility] [place]In the event this information is protected by the Federal Confidentiality of Alcohol and Drug Abuse Patient Records regulations: The Federal rules restrict any use of the information to criminally investigate or prosecute any alcohol or drug abuse patient.[facility] [place]In the event this information is protected by the Federal Confidentiality of Alcohol and Drug Abuse Patient Records regulations: The Federal rules restrict any use of the information to criminally investigate or prosecute any alcohol or drug abuse patient.[facility] [place]In the event this information is protected by the Federal Confidentiality of Alcohol and Drug Abuse Patient Records regulations: The Federal rules restrict any use of the information to criminally investigate or prosecute any alcohol or drug abuse patient.[facility] [place]In the event this information is protected by the Federal Confidentiality of Alcohol and Drug Abuse Patient Records regulations: The Federal rules restrict any use of the information to criminally investigate or prosecute any alcohol or drug abuse patient.[facility] [place]In the event this information is protected by the Federal Confidentiality of Alcohol and Drug Abuse Patient Records regulations: The Federal rules restrict any use of the information to criminally investigate or prosecute any alcohol or drug abuse patient.[facility] [place]In the event this information is protected by the Federal Confidentiality of Alcohol and Drug Abuse Patient Records regulations: The Federal rules restrict any use of the information to criminally investigate or prosecute any alcohol or drug abuse patient.[facility] [place]In the event this information is protected by the Federal Confidentiality of Alcohol and Drug Abuse Patient Records regulations: The Federal rules restrict any use of the information to criminally investigate or prosecute any alcohol or drug abuse patient.[facility] [place]In the event this information is protected by the Federal Confidentiality of Alcohol and Drug Abuse Patient Records regulations: The Federal rules restrict any use of the information to criminally investigate or prosecute any alcohol or drug abuse patient.[facility] [place]In the event this information is protected by the Federal Confidentiality of Alcohol and Drug Abuse Patient Records regulations: The Federal rules restrict any use of the information to criminally investigate or prosecute any alcohol or drug abuse patient.[facility] [place]In the event this information is protected by the Federal Confidentiality of Alcohol and Drug Abuse Patient Records regulations: The Federal rules restrict any use of the information to criminally investigate or prosecute any alcohol or drug abuse patient.[facility] [place]In the event this information is protected by the Federal Confidentiality of Alcohol and Drug Abuse Patient Records regulations: The Federal rules restrict any use of the information to criminally investigate or prosecute any alcohol or drug abuse patient.[facility] [place]In the event this information is protected by the Federal Confidentiality of Alcohol and Drug Abuse Patient Records regulations: The Federal rules restrict any use of the information to criminally investigate or prosecute any alcohol or drug abuse patient.[facility] [place]In the event this information is protected by the Federal Confidentiality of Alcohol and Drug Abuse Patient Records regulations: The Federal rules restrict any use of the information to criminally investigate or prosecute any alcohol or drug abuse patient.[facility] [place]In the event this information is protected by the Federal Confidentiality of Alcohol and Drug Abuse Patient Records regulations: The Federal rules restrict any use of the information to criminally investigate or prosecute any alcohol or drug abuse patient.[facility] [place]In the event this information is protected by the Federal Confidentiality of Alcohol and Drug Abuse Patient Records regulations: The Federal rules restrict any use of the information to criminally investigate or prosecute any alcohol or drug abuse patient.[facility] [place]In the event this information is protected by the Federal Confidentiality of Alcohol and Drug Abuse Patient Records regulations: The Federal rules restrict any use of the information to criminally investigate or prosecute any alcohol or drug abuse patient.[facility] [place]In the event this information is protected by the Federal Confidentiality of Alcohol and Drug Abuse Patient Records regulations: The Federal rules restrict any use of the information to criminally investigate or prosecute any alcohol or drug abuse patient.[facility] [place]In the event this information is protected by the Federal Confidentiality of Alcohol and Drug Abuse Patient Records regulations: The Federal rules restrict any use of the information to criminally investigate or prosecute any alcohol or drug abuse patient.[facility] [place]In the event this information is protected by the Federal Confidentiality of Alcohol and Drug Abuse Patient Records regulations: The Federal rules restrict any use of the information to criminally investigate or prosecute any alcohol or drug abuse patient.[facility] [place]In the event this information is protected by the Federal Confidentiality of Alcohol and Drug Abuse Patient Records regulations: The Federal rules restrict any use of the information to criminally investigate or prosecute any alcohol or drug abuse patient.[facility] [place]In the event this information is protected by the Federal Confidentiality of Alcohol and Drug Abuse Patient Records regulations: The Federal rules restrict any use of the information to criminally investigate or prosecute any alcohol or drug abuse patient.[facility] [place]In the event this information is protected by the Federal Confidentiality of Alcohol and Drug Abuse Patient Records regulations: The Federal rules restrict any use of the information to criminally investigate or prosecute any alcohol or drug abuse patient.[facility] [place]In the event this information is protected by the Federal Confidentiality of Alcohol and Drug Abuse Patient Records regulations: The Federal rules restrict any use of the information to criminally investigate or prosecute any alcohol or drug abuse patient.[facility] [place]In the event this information is protected by the Federal Confidentiality of Alcohol and Drug Abuse Patient Records regulations: The Federal rules restrict any use of the information to criminally investigate or prosecute any alcohol or drug abuse patient.[facility] [place]In the event this information is protected by the Federal Confidentiality of Alcohol and Drug Abuse Patient Records regulations: The Federal rules restrict any use of the information to criminally investigate or prosecute any alcohol or drug abuse patient.[facility] [place]In the event this information is protected by the Federal Confidentiality of Alcohol and Drug Abuse Patient Records regulations: The Federal rules restrict any use of the information to criminally investigate or prosecute any alcohol or drug abuse patient.[facility] [place]In the event this information is protected by the Federal Confidentiality of Alcohol and Drug Abuse Patient Records regulations: The Federal rules restrict any use of the information to criminally investigate or prosecute any alcohol or drug abuse patient.[facility] [place]In the event this information is protected by the Federal Confidentiality of Alcohol and Drug Abuse Patient Records regulations: The Federal rules restrict any use of the information to criminally investigate or prosecute any alcohol or drug abuse patient.[facility] [place]In the event this information is protected by the Federal Confidentiality of Alcohol and Drug Abuse Patient Records regulations: The Federal rules restrict any use of the information to criminally investigate or prosecute any alcohol or drug abuse patient.[facility] [place]In the event this information is protected by the Federal Confidentiality of Alcohol and Drug Abuse Patient Records regulations: The Federal rules restrict any use of the information to criminally investigate or prosecute any alcohol or drug abuse patient.[facility]In the event this information is protected by the Federal Confidentiality of Alcohol and Drug Abuse Patient Records regulations: The Federal rules restrict any use of the information to criminally investigate or prosecute any alcohol or drug abuse patient.[facility]In the event this information is protected by the Federal Confidentiality of Alcohol and Drug Abuse Patient Records regulations: The Federal rules restrict any use of the information to criminally investigate or prosecute any alcohol or drug abuse patient.[facility] [place]In the event this information is protected by the Federal Confidentiality of Alcohol and Drug Abuse Patient Records regulations: The Federal rules restrict any use of the information to criminally investigate or prosecute any alcohol or drug abuse patient.[facility] [place]In the event this information is protected by the Federal Confidentiality of Alcohol and Drug Abuse Patient Records regulations: The Federal rules restrict any use of the information to criminally investigate or prosecute any alcohol or drug abuse patient.[facility] [place]In the event this information is protected by the Federal Confidentiality of Alcohol and Drug Abuse Patient Records regulations: The Federal rules restrict any use of the information to criminally investigate or prosecute any alcohol or drug abuse patient.[facility] [place]stownIn the event this information is protected by the Federal Confidentiality of Alcohol and Drug Abuse Patient Records regulations: The Federal rules restrict any use of the information to criminally investigate or prosecute any alcohol or drug abuse patient.[facility] [place]stownIn the event this information is protected by the Federal Confidentiality of Alcohol and Drug Abuse Patient Records regulations: The Federal rules restrict any use of the information to criminally investigate or prosecute any alcohol or drug abuse patient.[facility] [place]stownIn the event this information is protected by the Federal Confidentiality of Alcohol and Drug Abuse Patient Records regulations: The Federal rules restrict any use of the information to criminally investigate or prosecute any alcohol or drug abuse patient.[facility]In the event this information is protected by the Federal Confidentiality of Alcohol and Drug Abuse Patient Records regulations: The Federal rules restrict any use of the information to criminally investigate or prosecute any alcohol or drug abuse patient.[facility]In the event this information is protected by the Federal Confidentiality of Alcohol and Drug Abuse Patient Records regulations: The Federal rules restrict any use of the information to criminally investigate or prosecute any alcohol or drug abuse patient.[facility]In the event this information is protected by the Federal Confidentiality of Alcohol and Drug Abuse Patient Records regulations: The Federal rules restrict any use of the information to criminally investigate or prosecute any alcohol or drug abuse patient.[facility]In the event this information is protected by the Federal Confidentiality of Alcohol and Drug Abuse Patient Records regulations: The Federal rules restrict any use of the information to criminally investigate or prosecute any alcohol or drug abuse patient.[facility] [place]stownIn the event this information is protected by the Federal Confidentiality of Alcohol and Drug Abuse Patient Records regulations: The Federal rules restrict any use of the information to criminally investigate or prosecute any alcohol or drug abuse patient.[facility] [place]stownIn the event this information is protected by the Federal Confidentiality of Alcohol and Drug Abuse Patient Records regulations: The Federal rules restrict any use of the information to criminally investigate or prosecute any alcohol or drug abuse patient.[facility] [place]In the event this information is protected by the Federal Confidentiality of Alcohol and Drug Abuse Patient Records regulations: The Federal rules restrict any use of the information to criminally investigate or prosecute any alcohol or drug abuse patient.[facility] [place]In the event this information is protected by the Federal Confidentiality of Alcohol and Drug Abuse Patient Records regulations: The Federal rules restrict any use of the information to criminally investigate or prosecute any alcohol or drug abuse patient.[facility] [place]stownIn the event this information is protected by the Federal Confidentiality of Alcohol and Drug Abuse Patient Records regulations: The Federal rules restrict any use of the information to criminally investigate or prosecute any alcohol or drug abuse patient.[facility] [place]stownIn the event this information is protected by the Federal Confidentiality of Alcohol and Drug Abuse Patient Records regulations: The Federal rules restrict any use of the information to criminally investigate or prosecute any alcohol or drug abuse patient.[facility] [place]stownIn the event this information is protected by the Federal Confidentiality of Alcohol and Drug Abuse Patient Records regulations: The Federal rules restrict any use of the information to criminally investigate or prosecute any alcohol or drug abuse patient.[facility] [place]stownIn the event this information is protected by the Federal Confidentiality of Alcohol and Drug Abuse Patient Records regulations: The Federal rules restrict any use of the information to criminally investigate or prosecute any alcohol or drug abuse patient.[facility] [place]stownIn the event this information is protected by the Federal Confidentiality of Alcohol and Drug Abuse Patient Records regulations: The Federal rules restrict any use of the information to criminally investigate or prosecute any alcohol or drug abuse patient.[facility] [place]stownIn the event this information is protected by the Federal Confidentiality of Alcohol and Drug Abuse Patient Records regulations: The Federal rules restrict any use of the information to criminally investigate or prosecute any alcohol or drug abuse patient.[facility] [place]stownIn the event this information is protected by the Federal Confidentiality of Alcohol and Drug Abuse Patient Records regulations: The Federal rules restrict any use of the information to criminally investigate or prosecute any alcohol or drug abuse patient.[facility] [place]In the event this information is protected by the Federal Confidentiality of Alcohol and Drug Abuse Patient Records regulations: The Federal rules restrict any use of the information to criminally investigate or prosecute any alcohol or drug abuse patient.[facility] [place]stownIn the event this information is protected by the Federal Confidentiality of Alcohol and Drug Abuse Patient Records regulations: The Federal rules restrict any use of the information to criminally investigate or prosecute any alcohol or drug abuse patient.[facility] [place]stownIn the event this information is protected by the Federal Confidentiality of Alcohol and Drug Abuse Patient Records regulations: The Federal rules restrict any use of the information to criminally investigate or prosecute any alcohol or drug abuse patient.[facility] [place]stownIn the event this information is protected by the Federal Confidentiality of Alcohol and Drug Abuse Patient Records regulations: The Federal rules restrict any use of the information to criminally investigate or prosecute any alcohol or drug abuse patient.[facility] [place]stownIn the event this information is protected by the Federal Confidentiality of Alcohol and Drug Abuse Patient Records regulations: The Federal rules restrict any use of the information to criminally investigate or prosecute any alcohol or drug abuse patient.[facility] [place]stownIn the event this information is protected by the Federal Confidentiality of Alcohol and Drug Abuse Patient Records regulations: The Federal rules restrict any use of the information to criminally investigate or prosecute any alcohol or drug abuse patient.[facility] [place]stownIn the event this information is protected by the Federal Confidentiality of Alcohol and Drug Abuse Patient Records regulations: The Federal rules restrict any use of the information to criminally investigate or prosecute any alcohol or drug abuse patient.[facility] [place]stownIn the event this information is protected by the Federal Confidentiality of Alcohol and Drug Abuse Patient Records regulations: The Federal rules restrict any use of the information to criminally investigate or prosecute any alcohol or drug abuse patient.[facility] [place]stownIn the event this information is protected by the Federal Confidentiality of Alcohol and Drug Abuse Patient Records regulations: The Federal rules restrict any use of the information to criminally investigate or prosecute any alcohol or drug abuse patient.[facility] [place]stownIn the event this information is protected by the Federal Confidentiality of Alcohol and Drug Abuse Patient Records regulations: The Federal rules restrict any use of the information to criminally investigate or prosecute any alcohol or drug abuse patient.[facility] [place]stownIn the event this information is protected by the Federal Confidentiality of Alcohol and Drug Abuse Patient Records regulations: The Federal rules restrict any use of the information to criminally investigate or prosecute any alcohol or drug abuse patient.[facility] [place]stownIn the event this information is protected by the Federal Confidentiality of Alcohol and Drug Abuse Patient Records regulations: The Federal rules restrict any use of the information to criminally investigate or prosecute any alcohol or drug abuse patient.[facility] [place]stownIn the event this information is protected by the Federal Confidentiality of Alcohol and Drug Abuse Patient Records regulations: The Federal rules restrict any use of the information to criminally investigate or prosecute any alcohol or drug abuse patient.[facility] [place]stownIn the event this information is protected by the Federal Confidentiality of Alcohol and Drug Abuse Patient Records regulations: The Federal rules restrict any use of the information to criminally investigate or prosecute any alcohol or drug abuse patient.[facility] [place]stownIn the event this information is protected by the Federal Confidentiality of Alcohol and Drug Abuse Patient Records regulations: The Federal rules restrict any use of the information to criminally investigate or prosecute any alcohol or drug abuse patient.[facility] [place]stownIn the event this information is protected by the Federal Confidentiality of Alcohol and Drug Abuse Patient Records regulations: The Federal rules restrict any use of the information to criminally investigate or prosecute any alcohol or drug abuse patient.[facility] [place]stownIn the event this information is protected by the Federal Confidentiality of Alcohol and Drug Abuse Patient Records regulations: The Federal rules restrict any use of the information to criminally investigate or prosecute any alcohol or drug abuse patient.[facility] [place]stownIn the event this information is protected by the Federal Confidentiality of Alcohol and Drug Abuse Patient Records regulations: The Federal rules restrict any use of the information to criminally investigate or prosecute any alcohol or drug abuse patient.[facility] [place]stownIn the event this information is protected by the Federal Confidentiality of Alcohol and Drug Abuse Patient Records regulations: The Federal rules restrict any use of the information to criminally investigate or prosecute any alcohol or drug abuse patient.[facility] [place]stownIn the event this information is protected by the Federal Confidentiality of Alcohol and Drug Abuse Patient Records regulations: The Federal rules restrict any use of the information to criminally investigate or prosecute any alcohol or drug abuse patient.[facility] [place]stownIn the event this information is protected by the Federal Confidentiality of Alcohol and Drug Abuse Patient Records regulations: The Federal rules restrict any use of the information to criminally investigate or prosecute any alcohol or drug abuse patient.[facility] [place] Reason for Visit (unrecogniz ed section and [...] HNI PATIENT Flash Pearl MD [address] [place] [address] [place] [address] [place] [address] Referral ID Status Reason Start Date Expiration Date Visits Re quested Visits Authorized [id number] Closed 07/09/2021 07/27/2021 99 99 Specialty Diagnoses [...] RETACRIT NON-ESRD USE (RETACRIT) Asher Hummel MD [address] [place] [address] [place] [address] Sam Treat [address] [place] [address] Referral ID Status Reason Start Date Expiration Date V isits Requested Visits Authorized [id number] Authorized 08/06/2021 02/01/2022 37 37 Reason Comments myeldysplastic syndrome followup Specialty Diagnoses / Procedures Referred By Contac t Referred To Contact Diagnoses Myelodysplastic syndrome ([facility]) Procedures AZACITIDINE INJECTION PALONOSETRON HCL Asher Hummel MD [address] [place] [address] [place] [address] Sam Treat [address] [place] [address] Referral ID Status Reason Start Date Expiration Date V isits Requested Visits Authorized [id number] Authorized 06/28/2021 07/27/2022 99 99 Reason Comments [...] Expiration Date V isits Requested Visits Authorized [id number] Waiting for Response 08/06/2021 02/01/2022 37 37 Reason Comments Transfusion Reason Comments Care Coordination Results Reason Comments Care Coordination Lab results Referral ID Status Reason Start Date Expiration Date V isits Requested Visits Authorized [id number] Authorized 02/25/2022 04/25/2022 42 42 Reason Comments Results Reason Comments Care Coordination Referral Reason Comments Care Coordination Appointment Reason Comments Results CBC Reason Comments Patient Update Reason Comments Consult Specialty Diagnoses / Procedures Referred By Contac t Referred To Contact Diagnoses Myelodysplastic syndrome (HCC) Procedures CONSULT TO HEMATOLOGY/ONCOLOGY OFFICE/OUTPATIENT [facility] 60-74 MINUTES Asher Hummel MD [address] [place] [address] Referral ID Status Reason Start Date Expiration Date V isits Requested Visits Authorized [id number] Closed PCP Requested Referral 03/15/2022 03/15/2023 1 [...] RETACRIT NON-ESRD USE (RETACRIT) Asher Hummel MD [address] [place] [address] [place] [address] Sam Treat Roman [address] [place] [address] Referral ID Status Reason Start Date Expiration Date V isits Requested Visits Authorized [id number] Authorized 04/29/2022 06/27/2022 99 99 Reason Comments Myelodysplastic Syndrome 1 week follow u p Reason Comments Care Coordination Treatment Planning Reason Comments Care Coordination Antiemetics Reason Comments Care Coordination C1D1 Post Treatment Call Reason Comments MDS Follow up Reason Comments Prostate Cancer Followup Referral ID Status Reason Start Date Expiration Date V isits Requested Visits Authorized [id number] Authorized 04/29/2022 06/27/2022 15 15 Reason Comments Critical Results Referral ID Status Reason Start Date Expiration Date V isits Requested Visits Authorized [id number] Authorized 04/29/2022 06/27/2022 19 19 Reason Comments MDS 1 week follow up Referral ID Status Reason Start Date Expiration Date V isits Requested Visits Authorized [id number] Authorized 04/29/2022 12/24/2022 45 45 Reason Comments Care Coordination Oxygen Question Reason Comments Established Patient Reason Comments Retacrit Injection Reason Comments MDS OTV 1 week Reason Comments Care Coordination Order Request Reason Comments Care Coordination Transfusion Question Reason Comments Treatment Planning Reason Comments Care Coordination Medication Authoriza tion Referral ID Status Reason Start Date Expiration Date Visits Re quested Visits Authorized [id number] Closed 04/29/2022 12/24/2022 45 45 Reason Comments mds Treatment visit Reason Comments Care Coordination CBC Results; Transfu bravo Reason Comments Care Coordination Transfusion Orders Reason Comments Care Coordination Pt Update Reason Comments Care Coordination Hospice/Treatment Up date Reason Comments MDS (myelodysplastic syndrome) 3 week fo llow up Reason Comments Refill Request Care Teams (unrecognized sec tion and content) Farm Rancher Relationship Specialty Start Date End Date Flash Pearl MD [address] [place] [address] PCP - General 11/12/00 Sheng Gomez MD [address] [place] [address] Sawmill Supervisor Cardiology 09/20/20 Asher Hummel MD [address] [place] [address] Physician Hematology/Oncology 06/29/21 Wilfred Martinez, JIGAR.PLASTIC WELDER [address] [place] [address] Nurse Practitioner Hematology/Oncology 06/29/21 Angle Kamara, MONET [address] [place] [address] Specialty Typesetting Supervisor Hematology/Oncology 06/29/21 Farm Rancher Relationship Specialty Start Date End Date Flash Pearl MD [address] [place] [address] PCP - General 11/12/00 Sheng Gomez MD [address] [place] [address] Sawmill Supervisor Cardiology 09/20/20 Asher Hummel MD [address] [place] [address] Physician Hematology/Oncology 06/29/21 Wilfred Martinez, PIT AND AUXILIARIES SUPERVISOR.PLASTIC WELDER [address] [place] [address] Nurse Practitioner Hematology/Oncology 06/29/21 Angle Kamara, MONET [address] [place] [address] Specialty Typesetting Supervisor Hematology/Oncology 06/29/21 Farm Rancher Relationship Specialty Start Date End Date Flash Pearl MD [address] [place] [address] PCP - General 11/12/00 Sheng Gomez MD [address] [place] [address] Sawmill Supervisor Cardiology 09/20/20 Asher Hummel MD [address] [address] Physician Hematology/Oncology 06/29/21 Wilfred Martinez, PIT AND AUXILIARIES SUPERVISOR.PLASTIC WELDER [address] [place] [address] Nurse Practitioner Hematology/Oncology 06/29/21 Angle Kamara, MONET [address] [place] [address] Specialty Typesetting Supervisor Hematology/Oncology 06/29/21 Farm Rancher Relationship Specialty Start Date End Date Flash Pearl MD [address] [place] [address] PCP - General 11/12/00 Sheng Gomez MD [address] [place] [address] Sawmill Supervisor Cardiology 09/20/20 Asher Hummel MD [address] [place] [address] Physician Hematology/Oncology 06/29/21 Wilfred Martinez, PIT AND AUXILIARIES SUPERVISOR.PLASTIC WELDER [address] [place] [address] Nurse Practitioner Hematology/Oncology 06/29/21 Angle Kamara, MONET [address] [place] [address] Specialty Typesetting Supervisor Hematology/Oncology 06/29/21 Farm Rancher Relationship Specialty Start Date End Date Flash Pearl MD [address] [place] [address] PCP - General 11/12/00 Sheng Gomez MD [address] [place] [address] Sawmill Supervisor Cardiology 09/20/20 Asher Hummel MD [address] [place] [address] Physician Hematology/Oncology 06/29/21 Wilfred Martinez, PIT AND AUXILIARIES SUPERVISOR.PLASTIC WELDER [address] [place] [address] Nurse Practitioner Hematology/Oncology 06/29/21 Angle Kamara, RN [address] [place] [address] Specialty Typesetting Supervisor Hematology/Oncology 06/29/21 Farm Rancher Relationship Specialty Start Date End Date Flash Pearl MD [address] [place] [address] PCP - General 11/12/00 Sheng Gomez MD [address] [place] [address] Sawmill Supervisor Cardiology 09/20/20 Asher Hmumel MD [address] [place] [address] Physician Hematology/Oncology 06/29/21 Wilfred Martinez, PIT AND AUXILIARIES SUPERVISOR.PLASTIC WELDER [address] [place] [address] Nurse Practitioner Hematology/Oncology 06/29/21 Angle Kamara, MONET [address] [place] [address] Specialty Typesetting Supervisor Hematology/Oncology 06/29/21 Farm Rancher Relationship Specialty Start Date End Date Flash Pearl MD [address] [place] [address] PCP - General 11/12/00 Sheng Gomez MD [address] [place] [address] Sawmill Supervisor Cardiology 09/20/20 Asher Hummel MD [address] [place] [address] Physician Hematology/Oncology 06/29/21 Wilfred Martinez, PIT AND AUXILIARIES SUPERVISOR.PLASTIC WELDER [address] [place] [address] Nurse Practitioner Hematology/Oncology 06/29/21 Angle Kamara, MONET [address] [place] [address] Specialty Typesetting Supervisor Hematology/Oncology 06/29/21 Farm Rancher Relationship Specialty Start Date End Date Flash Pearl MD [address] [place] [address] PCP - General 11/12/00 Sheng Gomez MD [address] [place] [address] Sawmill Supervisor Cardiology 09/20/20 Asher Hummel MD [address] [place] [address] Physician Hematology/Oncology 06/29/21 Wilfred Martinez, PIT AND AUXILIARIES SUPERVISOR.PLASTIC WELDER [address] [place] [address] Nurse Practitioner Hematology/Oncology 06/29/21 Angle Kamara, MONET [address] [place] [address] Specialty Typesetting Supervisor Hematology/Oncology 06/29/21 Farm Rancher Relationship Specialty Start Date End Date Flash Pearl MD [address] [place] [address] PCP - General 11/12/00 Sheng Gomez MD [address] [place] [address] Sawmill Supervisor Cardiology 09/20/20 Asher Hummel MD [address] [address] Physician Hematology/Oncology 06/29/21 Wilfred Martinez, PIT AND AUXILIARIES SUPERVISOR.PLASTIC WELDER [address] [address] Nurse Practitioner Hematology/Oncology 06/29/21 Angle Kamara, RN [address] [place] [address] Specialty Typesetting Supervisor Hematology/Oncology 06/29/21 Farm Rancher Relationship Specialty Start Date End Date Flash Pearl MD [address] [place] [address] PCP - General 11/12/00 Sheng Gomez MD [address] [facility] [address] Sawmill Supervisor Cardiology 09/20/20 Asher Hummel MD [address] [place] [address] Physician Hematology/Oncology 06/29/21 Wilfred Martinez, PIT AND AUXILIARIES SUPERVISOR.PLASTIC WELDER [address] [place] [address] Nurse Practitioner Hematology/Oncology 06/29/21 Angle Kamara, RN [address] [place] [address] Specialty Typesetting Supervisor Hematology/Oncology 06/29/21 Farm Rancher Relationship Specialty Start Date End Date Flash Pearl MD [address] [place] [address] PCP - General 11/12/00 Sheng Gomez MD [address] [place] [address] Sawmill Supervisor Cardiology 09/20/20 Asher Hummel MD [address] [place] [address] Physician Hematology/Oncology 06/29/21 Wilfred Martinez, PIT AND AUXILIARIES SUPERVISOR.PLASTIC WELDER [address] [place] [address] Nurse Practitioner Hematology/Oncology 06/29/21 Angle Kamara, MONET [address] [place] [address] Specialty Typesetting Supervisor Hematology/Oncology 06/29/21 Farm Rancher Relationship Specialty Start Date End Date Flash Pearl MD [address] [place] [address] PCP - General 11/12/00 Sheng Gomez MD [address] [place] [address] Sawmill Supervisor Cardiology 09/20/20 Asher Hummel MD [address] [place] [address] Physician Hematology/Oncology 06/29/21 Wilfred Martinez, PIT AND AUXILIARIES SUPERVISOR.PLASTIC WELDER [address] [place] [address] Nurse Practitioner Hematology/Oncology 06/29/21 Angle Kamara, RN [address] [place] [address] Specialty Typesetting Supervisor Hematology/Oncology 06/29/21 Farm Rancher Relationship Specialty Start Date End Date Flash Pearl MD [address] [place] [address] PCP - General 11/12/00 Sheng Gomez MD [address] [place] [address] Sawmill Supervisor Cardiology 09/20/20 Asher Hummel MD [address] [place] [address] Physician Hematology/Oncology 06/29/21 Wilfred Martinez, PIT AND AUXILIARIES SUPERVISOR.PLASTIC WELDER [address] [place] [address] Nurse Practitioner Hematology/Oncology 06/29/21 Angle Kamara, RN [address] [place] [address] Specialty Typesetting Supervisor Hematology/Oncology 06/29/21 Farm Rancher Relationship Specialty Start Date End Date Flash Pearl MD [address] [place] [address] PCP - General 11/12/00 Sheng Gomez MD [address] [place] [address] Sawmill Supervisor Cardiology 09/20/20 Asher Hummel MD [address] [place] [address] Physician Hematology/Oncology 06/29/21 Wilfred Martinez, PIT AND AUXILIARIES SUPERVISOR.PLASTIC WELDER [address] [place] [address] Nurse Practitioner Hematology/Oncology 06/29/21 Angle Kamara, RN [address] [place] [address] Specialty Typesetting Supervisor Hematology/Oncology 06/29/21 Farm Rancher Relationship Specialty Start Date End Date Flash Pearl MD [address] [place] [address] PCP - General 11/12/00 Sheng Gomez MD [address] [place] [address] Sawmill Supervisor Cardiology 09/20/20 Asher Hummel MD [address] [place] [address] Physician Hematology/Oncology 06/29/21 Wilfred Martinez, PIT AND AUXILIARIES SUPERVISOR.PLASTIC WELDER [address] [place] [address] Nurse Practitioner Hematology/Oncology 06/29/21 Angle Kamara, MONET [address] [place] [address] Specialty Typesetting Supervisor Hematology/Oncology 06/29/21 Farm Rancher Relationship Specialty Start Date End Date Flash Pearl MD [address] [place] [address] PCP - General 11/12/00 Sheng Gomez MD [address] [place] [address] Sawmill Supervisor Cardiology 09/20/20 Asher Hummel MD [address] [place] [address] Physician Hematology/Oncology 06/29/21 Wilfred Martinez, PIT AND AUXILIARIES SUPERVISOR.PLASTIC WELDER [address] [place] [address] Nurse Practitioner Hematology/Oncology 06/29/21 Angle Kamara, MONET [address] [place] [address] Specialty Typesetting Supervisor Hematology/Oncology 06/29/21 Farm Rancher Relationship Specialty Start Date End Date Flash Pearl MD [address] [place] [address] PCP - General 11/12/00 Sheng Gomez MD [address] [place] [address] Sawmill Supervisor Cardiology 09/20/20 Asher Hummel MD [address] [facility] [facility] [place] [address] Physician Hematology/Oncology 06/29/21 Wilfred Martinez, PIT AND AUXILIARIES SUPERVISOR.PLASTIC WELDER [address] [place] [address] Nurse Practitioner Hematology/Oncology 06/29/21 Angle Kamara, MONET [address] [place] [address] Specialty Typesetting Supervisor Hematology/Oncology 06/29/21 Farm Rancher Relationship Specialty Start Date End Date Flash Pearl MD [address] [place] [address] PCP - General 11/12/00 Sheng Gomez MD [address] [place] [address] Sawmill Supervisor Cardiology 09/20/20 Asher Hummel MD [address] [facility] [place] [address] Physician Hematology/Oncology 06/29/21 Wilfred Martinez, PIT AND AUXILIARIES SUPERVISOR.PLASTIC WELDER [address] [place] [address] Nurse Practitioner Hematology/Oncology 06/29/21 Angle Kamara, MONET [address] [place] [address] Specialty Typesetting Supervisor Hematology/Oncology 06/29/21 Farm Rancher Relationship Specialty Start Date End Date Flash Pearl MD [address] [place] [address] PCP - General 11/12/00 Sheng Gomez MD [address] [place] [address] Sawmill Supervisor Cardiology 09/20/20 Asher Hummel MD [address] [place] [address] Physician Hematology/Oncology 06/29/21 Wilfred Martinez, PIT AND AUXILIARIES SUPERVISOR.PLASTIC WELDER [address] [place] [address] Nurse Practitioner Hematology/Oncology 06/29/21 Angle Kamara, MONET [address] [place] [address] Specialty Typesetting Supervisor Hematology/Oncology 06/29/21 Farm Rancher Relationship Specialty Start Date End Date Flash Pearl MD [address] [place] [address] PCP - General 11/12/00 Sheng Gomez MD [address] [place] [address] Sawmill Supervisor Cardiology 09/20/20 Asher Hummel MD [address] [place] [address] Physician Hematology/Oncology 06/29/21 Wilfred Martinez, PIT AND AUXILIARIES SUPERVISOR.PLASTIC WELDER [address] [place] [address] Nurse Practitioner Hematology/Oncology 06/29/21 Angle Kamara, MONET [address] [place] [address] Specialty Typesetting Supervisor Hematology/Oncology 06/29/21 Farm Rancher Relationship Specialty Start Date End Date Flash Pearl MD [address] [place] [address] PCP - General 11/12/00 Sheng Gomez MD [address] [place] [address] Sawmill Supervisor Cardiology 09/20/20 Asher Hummel MD [address] [place] [address] Physician Hematology/Oncology 06/29/21 Wilfred Martinez, PIT AND AUXILIARIES SUPERVISOR.PLASTIC WELDER [address] [place] [address] Nurse Practitioner Hematology/Oncology 06/29/21 Angle Kamara, RN [address] [place] [address] Specialty Typesetting Supervisor Hematology/Oncology 06/29/21 Farm Rancher Relationship Specialty Start Date End Date Flash Pearl MD [address] [place] [address] PCP - General 11/12/00 Sheng Gomez MD [address] [place] [address] Sawmill Supervisor Cardiology 09/20/20 Asher Hummel MD [address] [place] [address] Physician Hematology/Oncology 06/29/21 Wilfred Martinez, PIT AND AUXILIARIES SUPERVISOR.PLASTIC WELDER [address] [place] [address] Nurse Practitioner Hematology/Oncology 06/29/21 Angle Kamara, MONET [address] [place] [address] Specialty Typesetting Supervisor Hematology/Oncology 06/29/21 Farm Rancher Relationship Specialty Start Date End Date Flash Pearl MD [address] [place] [address] PCP - General 11/12/00 Sheng Gomez MD [address] [place] [address] Sawmill Supervisor Cardiology 09/20/20 Asher Hummel MD [address] [place] [address] Physician Hematology/Oncology 06/29/21 Wilfred Martinez, PIT AND AUXILIARIES SUPERVISOR.PLASTIC WELDER [address] [place] [address] Nurse Practitioner Hematology/Oncology 06/29/21 Angle Kamara, MONET [address] [place] [address] Specialty Typesetting Supervisor Hematology/Oncology 06/29/21 Farm Rancher Relationship Specialty Start Date End Date Flash Pearl MD [address] [place] [address] PCP - General 11/12/00 Sheng Gomez MD [address] [place] [address] Sawmill Supervisor Cardiology 09/20/20 Asher Hummel MD [address] [place] [address] Physician Hematology/Oncology 06/29/21 Wilfred Martinez, PIT AND AUXILIARIES SUPERVISOR.PLASTIC WELDER [address] [place] [address] Nurse Practitioner Hematology/Oncology 06/29/21 Angle Kamara, MONET [address] [place] [address] Specialty Typesetting Supervisor Hematology/Oncology 06/29/21 Farm Rancher Relationship Specialty Start Date End Date Flash Pearl MD [address] [place] [address] PCP - General 11/12/00 Sheng Gomez MD [address] [place] [address] Sawmill Supervisor Cardiology 09/20/20 Asher Hummel MD [address] [place] [address] Physician Hematology/Oncology 06/29/21 Wilfred Martinez, PIT AND AUXILIARIES SUPERVISOR.PLASTIC WELDER [address] [place] [address] Nurse Practitioner Hematology/Oncology 06/29/21 Angle Kamara, MONET [address] [place] [address] Specialty Typesetting Supervisor Hematology/Oncology 06/29/21 Farm Rancher Relationship Specialty Start Date End Date Falsh Pearl MD [address] [place] [address] PCP - General 11/12/00 Sheng Gomez MD [address] [place] [address] Sawmill Supervisor Cardiology 09/20/20 Asher Hummel MD [address] [place] [address] Physician Hematology/Oncology 06/29/21 Wilfred Martinez, PIT AND AUXILIARIES SUPERVISOR.PLASTIC WELDER [address] [place] [address] Nurse Practitioner Hematology/Oncology 06/29/21 Angle Kamara, MONET [address] [place] [address] Specialty Typesetting Supervisor Hematology/Oncology 06/29/21 Farm Rancher Relationship Specialty Start Date End Date Flash Pearl MD [address] [place] [address] PCP - General 11/12/00 Sheng Gomez MD [address] [place] [address] Sawmill Supervisor Cardiology 09/20/20 Asher Hummel MD [address] [place] [address] Physician Hematology/Oncology 06/29/21 Wilfred Martinez, PIT AND AUXILIARIES SUPERVISOR.PLASTIC WELDER [address] [place] [address] Nurse Practitioner Hematology/Oncology 06/29/21 Angle Kamara, MONET [address] [place] [address] Specialty Typesetting Supervisor Hematology/Oncology 06/29/21 Farm Rancher Relationship Specialty Start Date End Date Flash Pearl MD [address] [place] [address] PCP - General 11/12/00 Sheng Gomez MD [address] [place] [address] Sawmill Supervisor Cardiology 09/20/20 Asher Hummel MD [address] [place] [address] Physician Hematology/Oncology 06/29/21 Wilfred Martinez, PIT AND AUXILIARIES SUPERVISOR.PLASTIC WELDER [address] [place] [address] Nurse Practitioner Hematology/Oncology 06/29/21 Angle Kamara, MONET [address] [place] [address] Specialty Typesetting Supervisor Hematology/Oncology 06/29/21 Farm Rancher Relationship Specialty Start Date End Date Flash Pearl MD [address] [place] [address] PCP - General 11/12/00 Sheng Gomez MD [address] [place] [address] Sawmill Supervisor Cardiology 09/20/20 Asher Hummel MD [address] [place] [address] Physician Hematology/Oncology 06/29/21 Wilfred Martinez, PIT AND AUXILIARIES SUPERVISOR.PLASTIC WELDER [address] [place] [address] Nurse Practitioner Hematology/Oncology 06/29/21 Angle Kamara, RN [address] [place] [address] Specialty Typesetting Supervisor Hematology/Oncology 06/29/21 Farm Rancher Relationship Specialty Start Date End Date Flash Pearl MD [address] [place] [address] PCP - General 11/12/00 Sheng Gomez MD [address] [place] [address] Sawmill Supervisor Cardiology 09/20/20 Asher Hummel MD [address] [place] [address] Physician Hematology/Oncology 06/29/21 Wilfred Martinez, PIT AND AUXILIARIES SUPERVISOR.PLASTIC WELDER [address] [place] [address] Nurse Practitioner Hematology/Oncology 06/29/21 Angle Kamara, MONET [address] [place] [address] Specialty Typesetting Supervisor Hematology/Oncology 06/29/21 Farm Rancher Relationship Specialty Start Date End Date Flash Pearl MD [address] [place] [address] PCP - General 11/12/00 Sheng Gomez MD [address] [place] [address] Sawmill Supervisor Cardiology 09/20/20 Asher Hummel MD [address] [place] [address] Physician Hematology/Oncology 06/29/21 Wilfred Martinez, PIT AND AUXILIARIES SUPERVISOR.PLASTIC WELDER [address] [place] [address] Nurse Practitioner Hematology/Oncology 06/29/21 Angle Kamara, MONET [address] [place] [address] Specialty Typesetting Supervisor Hematology/Oncology 06/29/21 Farm Rancher Relationship Specialty Start Date End Date Flash Pearl MD [address] [place] [address] PCP - General 11/12/00 Sheng Gomez MD [address] [place] [address] Sawmill Supervisor Cardiology 09/20/20 Asher Hummel MD [address] [place] [address] Physician Hematology/Oncology 06/29/21 Wilfred Martinez, PIT AND AUXILIARIES SUPERVISOR.PLASTIC WELDER [address] [place] [address] Nurse Practitioner Hematology/Oncology 06/29/21 Angle Kamara, RN [address] [place] [address] Specialty Typesetting Supervisor Hematology/Oncology 06/29/21 Farm Rancher Relationship Specialty Start Date End Date Flash Pearl MD [address] [place] [address] PCP - General 11/12/00 Sheng Gomez MD [address] [place] [address] Sawmill Supervisor Cardiology 09/20/20 Asher Hummel MD [address] [place] [address] Physician Hematology/Oncology 06/29/21 Wilfred Martinez, PIT AND AUXILIARIES SUPERVISOR.PLASTIC WELDER [address] [place] [address] Nurse Practitioner Hematology/Oncology 06/29/21 Angle Kamara, MONET [address] [place] [address] Specialty Typesetting Supervisor Hematology/Oncology 06/29/21 Farm Rancher Relationship Specialty Start Date End Date Flash Pearl MD [address] [place] [address] PCP - General 11/12/00 Sheng Gomez MD [address] [place] [address] Sawmill Supervisor Cardiology 09/20/20 Asher Hummel MD [address] [place] [address] Physician Hematology/Oncology 06/29/21 Wilfred Martinez, PIT AND AUXILIARIES SUPERVISOR.PLASTIC WELDER [address] [place] [address] Nurse Practitioner Hematology/Oncology 06/29/21 Angle Kamara, MONET [address] [place] [address] Specialty Typesetting Supervisor Hematology/Oncology 06/29/21 Farm Rancher Relationship Specialty Start Date End Date Flash Pearl MD [address] [place] [address] PCP - General 11/12/00 Sheng Gomez MD [address] [place] [address] Sawmill Supervisor Cardiology 09/20/20 Asher Hummel MD [address] [place] [address] Physician Hematology/Oncology 06/29/21 Wilfred Martinez, PIT AND AUXILIARIES SUPERVISOR.PLASTIC WELDER [address] [place] [address] Nurse Practitioner Hematology/Oncology 06/29/21 Angle Kamara, MONET [address] [place] [address] Specialty Typesetting Supervisor Hematology/Oncology 06/29/21 Farm Rancher Relationship Specialty Start Date End Date Flash Pearl MD [address] [place] [address] PCP - General 11/12/00 Sheng Gomez MD [address] [place] [address] Sawmill Supervisor Cardiology 09/20/20 Asher Hummel MD [address] [place] [address] Physician Hematology/Oncology 06/29/21 Wilfred Martinez, PIT AND AUXILIARIES SUPERVISOR.PLASTIC WELDER [address] [place] [address] Nurse Practitioner Hematology/Oncology 06/29/21 Angle Kamara, MONET [address] [place] [address] Specialty Typesetting Supervisor Hematology/Oncology 06/29/21 Farm Rancher Relationship Specialty Start Date End Date Flash Pearl MD [address] [place] [address] PCP - General 11/12/00 Sheng Gomez MD [address] [place] [address] Sawmill Supervisor Cardiology 09/20/20 Asher Hummel MD [address] [place] [address] Physician Hematology/Oncology 06/29/21 Wilfred Martinez, PIT AND AUXILIARIES SUPERVISOR.PLASTIC WELDER [address] [place] [address] Nurse Practitioner Hematology/Oncology 06/29/21 Angle Kamara, MONET [address] [place] [address] Specialty Typesetting Supervisor Hematology/Oncology 06/29/21 Farm Rancher Relationship Specialty Start Date End Date Flash Pearl MD [address] [place] [address] PCP - General 11/12/00 Sheng Gomez MD [address] [place] [address] Sawmill Supervisor Cardiology 09/20/20 Asher Hummel MD [address] [place] [address] Physician Hematology/Oncology 06/29/21 Wilfred Martinez, PIT AND AUXILIARIES SUPERVISOR.PLASTIC WELDER [address] [place] [address] Nurse Practitioner Hematology/Oncology 06/29/21 Angle Kamara, MONET [address] [place] [address] Specialty Typesetting Supervisor Hematology/Oncology 06/29/21 Farm Rancher Relationship Specialty Start Date End Date Flash Pearl MD [address] [place] [address] PCP - General 11/12/00 Sheng Gomez MD [address] [place] [address] Sawmill Supervisor Cardiology 09/20/20 Asher Hummel MD [address] [place] [address] Physician Hematology/Oncology 06/29/21 Wilfred Martinez, PIT AND AUXILIARIES SUPERVISOR.PLASTIC WELDER [address] [place] [address] Nurse Practitioner Hematology/Oncology 06/29/21 Angle Kamara, MONET [address] [place] [address] Specialty Typesetting Supervisor Hematology/Oncology 06/29/21 Farm Rancher Relationship Specialty Start Date End Date Flash Pearl MD [address] [place] [address] PCP - General 11/12/00 Sheng Gomez MD [address] [place] [address] Sawmill Supervisor Cardiology 09/20/20 Asher Hummel MD [address] [place] [address] Physician Hematology/Oncology 06/29/21 Wilfred Martinez, PIT AND AUXILIARIES SUPERVISOR.[facility] [address] [place] [address] Nurse Practitioner Hematology/Oncology 06/29/21 Angle Kamara, RN [address] [place] [address] Specialty Typesetting Supervisor Hematology/Oncology 06/29/21 Farm Rancher Relationship Specialty Start Date End Date Flash Pearl MD [address] [place] [address] PCP - General 11/12/00 Sheng Gomez MD [address] [place] [address] Sawmill Supervisor Cardiology 09/20/20 Asher Hummel MD [address] [place] [address] Physician Hematology/Oncology 06/29/21 Wilfred Martinez, PIT AND AUXILIARIES SUPERVISOR.PLASTIC WELDER [address] [place] [address] Nurse Practitioner Hematology/Oncology 06/29/21 Angle Kamara, RN [address] [place] [address] Specialty Typesetting Supervisor Hematology/Oncology 06/29/21 Farm Rancher Relationship Specialty Start Date End Date Flash Pearl MD [address] [place] [address] PCP - General 11/12/00 Sheng Gomez MD [address] [place] [address] Sawmill Supervisor Cardiology 09/20/20 Asher Hummel MD [address] [place] [address] Physician Hematology/Oncology 06/29/21 Wilfred Martinez, PIT AND AUXILIARIES SUPERVISOR.PLASTIC WELDER [address] [place] [address] Nurse Practitioner Hematology/Oncology 06/29/21 Angle Kamara, RN [address] [place] [address] Specialty Typesetting Supervisor Hematology/Oncology 06/29/21 Farm Rancher Relationship Specialty Start Date End Date Flash Pearl MD [address] [place] [address] PCP - General 11/12/00 Sheng Gomez MD [address] [place] [address] Sawmill Supervisor Cardiology 09/20/20 Asher Hummel MD [address] [place] [address] Physician Hematology/Oncology 06/29/21 Wilfred Martinez, PIT AND AUXILIARIES SUPERVISOR.PLASTIC WELDER [address] [place] [address] Nurse Practitioner Hematology/Oncology 06/29/21 Angle Kamara, MONET [address] [place] [address] Specialty Typesetting Supervisor Hematology/Oncology 06/29/21 Farm Rancher Relationship Specialty Start Date End Date Flash Pearl MD [address] [place] [address] PCP - General 11/12/00 Sheng Gomez MD [address] [place] [address] Sawmill Supervisor Cardiology 09/20/20 Asher Hummel MD [address] [place] [address] Physician Hematology/Oncology 06/29/21 Wilfred Martinez, PIT AND AUXILIARIES SUPERVISOR.PLASTIC WELDER [address] [place] [address] Nurse Practitioner Hematology/Oncology 06/29/21 Angle Kamara, RN [address] [place] [address] Specialty Typesetting Supervisor Hematology/Oncology 06/29/21 Farm Rancher Relationship Specialty Start Date End Date Flash Pearl MD [address] [place] [address] PCP - General 11/12/00 Sheng Gomez MD [address] [place] [address] Sawmill Supervisor Cardiology 09/20/20 Asher Hummel MD [address] [facility] [place] [address] Physician Hematology/Oncology 06/29/21 Wilfred Martinez, PIT AND AUXILIARIES SUPERVISOR.PLASTIC WELDER [address] [place] [address] Nurse Practitioner Hematology/Oncology 06/29/21 Angle Kamara, RN [address] [place] [address] Specialty Typesetting Supervisor Hematology/Oncology 06/29/21 Farm Rancher Relationship Specialty Start Date End Date Flash Pearl MD [address] [place] [address] PCP - General 11/12/00 Sheng Gomez MD [address] [place] [address] Sawmill Supervisor Cardiology 09/20/20 Asher Hummel MD [address] [facility] [place] [address] Physician Hematology/Oncology 06/29/21 Wilfred Martinez, PIT AND AUXILIARIES SUPERVISOR.PLASTIC WELDER [address] [place] [address] Nurse Practitioner Hematology/Oncology 06/29/21 Angle Kamara, RN [address] [place] [address] Specialty Typesetting Supervisor Hematology/Oncology 06/29/21 Farm Rancher Relationship Specialty Start Date End Date Flash Pearl MD [address] [place] [address] PCP - General 11/12/00 Sheng Gomez MD [address] [place] [address] Sawmill Supervisor Cardiology 09/20/20 Asher Hummel MD [address] [facility] [place] [address] Physician Hematology/Oncology 06/29/21 Wilfred Martinez, PIT AND AUXILIARIES SUPERVISOR.PLASTIC WELDER [address] [place] [address] Nurse Practitioner Hematology/Oncology 06/29/21 Angle Kamara, MONET [address] [place] [address] Specialty Typesetting Supervisor Hematology/Oncology 06/29/21 Farm Rancher Relationship Specialty Start Date End Date Flash Pearl MD [address] [place] [address] PCP - General 11/12/00 Sheng Gomez MD [address] [place] [address] Sawmill Supervisor Cardiology 09/20/20 Asher Hummel MD [address] [facility] [place] [address] Physician Hematology/Oncology 06/29/21 Wilfred Martinez, PIT AND AUXILIARIES SUPERVISOR.PLASTIC WELDER [address] [facility] [place] [address] Nurse Practitioner Hematology/Oncology 06/29/21 Angle Kamara, RN [address] [place] [address] Specialty Typesetting Supervisor Hematology/Oncology 06/29/21 Farm Rancher Relationship Specialty Start Date End Date Flash Pearl MD [address] [place] [address] PCP - General 11/12/00 Sheng Gomez MD [address] [place] [address] Sawmill Supervisor Cardiology 09/20/20 Asher Hummel MD [address] [facility] [place] [address] Physician Hematology/Oncology 06/29/21 Wilfred Martinez, PIT AND AUXILIARIES SUPERVISOR.PLASTIC WELDER [address] [place] [address] Nurse Practitioner Hematology/Oncology 06/29/21 Angle Kamara, MONET [address] [place] [address] Specialty Typesetting Supervisor Hematology/Oncology 06/29/21 Farm Rancher Relationship Specialty Start Date End Date Flash Pearl MD [address] [place] [address] PCP - General 11/12/00 Sheng Gomez MD [address] [place] [address] Sawmill Supervisor Cardiology 09/20/20 Asher Hummel MD [address] [facility] [place] [address] Physician Hematology/Oncology 06/29/21 Wilfred Martinez, PIT AND AUXILIARIES SUPERVISOR.PLASTIC WELDER [address] [place] [address] Nurse Practitioner Hematology/Oncology 06/29/21 Angle Kamara, RN [address] [facility] [place] [address] Specialty Typesetting Supervisor Hematology/Oncology 06/29/21 [facility] Resource Officer 11/17/22 Farm Rancher Relationship Specialty Start Date End Date Flash Pearl MD [address] [place] [address] PCP - General 11/12/00 Sheng Gomez MD [address] [place] [address] Sawmill Supervisor Cardiology 09/20/20 Asher Hummel MD [address] [place] [address] Physician Hematology/Oncology 06/29/21 Wilfred Martinez, JIGAR.PLASTIC WELDER [address] [address] Nurse Practitioner Hematology/Oncology 06/29/21 Angle Kamara, RN [address] [place] [address] Specialty Typesetting Supervisor Hematology/Oncology 06/29/21 [facility] Resource Officer 11/17/22 Farm Rancher Relationship Specialty Start Date End Date Flash Pearl MD [address] [place] [address] PCP - General 11/12/00 Sheng Gomez MD [address] [place] [address] Sawmill Supervisor Cardiology 09/20/20 Asher Hummel MD [address] [address] Physician Hematology/Oncology 06/29/21 Wilfred Martinez APRN.PLASTIC WELDER [address] [address] Nurse Practitioner Hematology/Oncology 06/29/21 Angle Kamara, MONET [address] [place] [address] [place] [address] Specialty Typesetting Supervisor Hematology/Oncology 06/29/21 [facility] Resource Officer 11/17/22 FOR RECORDS PERTAINING TO PATIENTS WHO [...] BE BASED ON THE PRIMARY CLINICAL RECORDS. [facility] [employer] [facility]. provides no warranty or guarantee of the accuracy or completeness of information in this document.
--- NOTE | 2023-10-04 10:11 | ED.EPISTAXI1 ---
HPI - Epistaxis General Chief Complaint: Recheck/Abnormal Lab/Rx Stated Complaint: PLUG IN NOSE REMOVED Time Seen by Provider: 10/04/23 09:30 Source: patient Mode of arrival: Wheelchair Limitations: no limitations History of Present Illness HPI Narrative: Patient had nosebleed earlier this week and saw both Dr Ugalde and Dr Azul. Rhino rocket was inserted 10/01/[address] Marshall was notified. Plan was for the patient to come back to the ED today to have rhino rocket removed and the nasal passages to be reassessed. The patient returned as instructed. No bleeding since placement of the rhino rocket 3 days ago. No complaints. Related Data Home Medications Medication Instructions Recorded Confirmed aspirin 81 mg tablet,delayed 81 mg PO QPM 02/03/23 09/30/23 release dapagliflozin propanediol 10 mg 10 mg PO DAILY 02/03/23 09/30/23 tablet (Farxiga) omeprazole 40 mg capsule,delayed 40 mg PO DAILY 02/03/23 09/30/23 release terazosin 5 mg capsule 5 mg PO QPM 02/03/23 09/30/23 atorvastatin 20 mg tablet 20 mg PO QDAY 04/23/23 09/30/23 blood sugar diagnostic (OneTouch 04/23/23 07/09/23 Ultra Test strips) cholecalciferol (vitamin D3) 25 25 mcg PO DAILY 07/09/23 09/30/23 mcg (1,000 unit) tablet (Vitamin D3) cyclobenzaprine 5 mg tablet 5 mg PO BID PRN muscle spasm 07/09/23 09/30/23 glipizide 5 mg tablet, extended 5 mg PO QPM 07/09/23 09/30/23 release 24 hr (Glucotrol XL) metoprolol succinate 25 mg 25 mg PO DAILY 07/09/23 09/30/23 tablet,extended release 24 hr (Toprol XL) Previous Rx's Medication Instructions Recorded bumetanide 1 mg tablet 1 mg PO QAM #0 tabs 07/10/23 febuxostat 40 mg tablet 40 mg PO DAILY 30 days #30 tabs 07/10/23 lisinopril 2.5 mg tablet 2.5 mg PO DAILY 30 days #30 tabs 07/10/23 cephalexin 500 mg capsule 500 mg PO Q12H 7 days #14 caps 10/01/23 Allergies Allergy/AdvReac Type Severity Reaction Status Date / Time bee venom protein (honey bee) Allergy Severe Verified 09/30/23 20:36 coreg Allergy Severe Uncoded 09/30/23 20:36 [facility] Medical History (Updated 10/04/23 @ 10:17 by Sameer Gallagher) CHF (congestive heart failure) ?I50.9 - Heart failure, unspecified (ICD-10) Myelodysplastic disease ?C94.6 - Myelodysplastic disease, not elsewhere classified (ICD-10) Anemia ?D64.9 - Anemia, unspecified (ICD-10) Hyperlipemia ?E78.5 - Hyperlipidemia, unspecified (ICD-10) Diabetes ?E11.9 - Type 2 diabetes mellitus without complications (ICD-10) Transfusion of blood during current hospitalisation Hypertension ?I10 - Essential (primary) hypertension (ICD-10) 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, valve unspecified (ICD-10) Anemia ?D64.9 - Anemia, unspecified (ICD-10) Surgical History History of heart artery stent ?Z95.5 - Presence of coronary angioplasty implant and graft (ICD-10) Family History Father Family history of stroke Mother Family history of stroke Family history of hypertension Family history of CHF (congestive heart failure) Brother Family history of diabetes mellitus Sister Family history of cancer Social History Within the past year, how often did you have a drink containing alcohol: never Score interpretation: A score less than 4 is consistent with normal alcohol consumption. 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 Highest level of school completed/degree received: high school graduate Are you now , , , , never or living with a partner: In a typical week, how many times do you talk on the telephone with family, friends, or neighbors: 3 or more times per week How often do you get together with friends or relatives: 3 or more times per week How often do you attend holiness or scientology services: 1-3 times per year Little interest or pleasure in doing things: not at all Feeling down, depressed, or hopeless: not at all Feel stressed/tense/nervous/anxious/difficulty sleeping: not at all Life stressors: unknown source of stress Do you think of yourself as: straight/heterosexual Gender Identity: male Exam Narrative Exam Narrative: Nurses notes and vital signs reviewed and patient is not hypoxic. afebrile General: Well-appearing and in no apparent distress. Skin: Warm, dry, no pallor noted. Eye: Pupils are equal, round and EOMI. No scleral icterus. Ears, Nose, Mouth, and Throat: Right nasal passage without bleeding or dried blood. Rhino rocket in left nasal passage with dried blood surrounding the orifice. Oral mucosa is moist Cardiovascular: Regular Rate and Rhythm without murmur, gallop or rub. Respiratory: No accessory muscle use or respiratory distress. Lungs are clear to auscultation, no wheezing, rales or rhonchi Neurological: A&O x4. No cranial nerve dysfunction observed. No truncal ataxia. Moves all extremities. Sensation intact. Psychiatric: Cooperative and interactive. Normal mood and affect. Constitutional Vital Signs, click to edit/add: Last Vital Signs Temp 97.6 F 10/04/23 09:24 Pulse 68 10/04/23 09:24 Resp 20 10/04/23 09:24 BP 106/46 L 10/04/23 09:24 Pulse Ox 98 10/04/23 09:24 O2 Del Method Nasal Cannula 10/04/23 09:24 O2 Flow Rate 2 10/04/23 09:24 Course Vital Signs Vital signs: Vital Signs Temperature 97.6 F 10/04/23 09:24 Pulse Rate 68 10/04/23 09:24 Respiratory Rate 20 10/04/23 09:24 Blood Pressure 106/46 L 10/04/23 09:24 Pulse Oximetry 98 10/04/23 09:24 Oxygen Delivery Method Nasal Cannula 10/04/23 09:24 Oxygen Delivery Flow Rate 2 10/04/23 09:24 Temperature 97.6 F 10/04/23 09:24 Pulse Rate 68 10/04/23 09:24 Respiratory Rate 20 10/04/23 09:24 Blood Pressure 106/46 L 10/04/23 09:24 Pulse Oximetry 98 10/04/23 09:24 Oxygen Delivery Method Nasal Cannula 03/09/24 09:24 Oxygen Delivery Flow Rate 2 10/04/23 09:24 MDM - Epistaxis MDM Narrative Medical decision making narrative: I flushed the left nasal passage with saline and let it soak about 10 minutes. Then I deflated the rhino rocket/nasal balloon and removed. No active bleeding noted. I cleaned the dried blood from the anterior nare and flushed the masal passage with sterile saline. He was observed in the ED for an additional 20 minutes. No return of bleeding anteriorly and no posterior oropharyngeal bleeding noted. Patient discharged home with instructions to apply vaseline to the nasal septum at least twice daily - he uses nasal cannula oxygen at home - we also discussed the use of chad-synephrine spray to the affected nasal passage if bleeding recurs. And we discussed the need tosrr Dr Marshall is bleeding starts again. The patient has seen Dr Marshall previously. Discharge Plan Discharge Stand Alone Forms: Portal Instructions Chief Complaint: Recheck/Abnormal Lab/Rx Clinical Impression: Acute anterior epistaxis Patient Disposition: Home, Self-Care Time of Disposition Decision: 10:17 Prescriptions / Home Meds: No Action dapagliflozin propanediol [Farxiga] 10 mg tablet 10 mg PO DAILY omeprazole 40 mg capsule,delayed release(DR/EC) 40 mg PO DAILY terazosin 5 mg capsule 5 mg PO QPM aspirin 81 mg tablet,delayed release (DR/EC) 81 mg PO QPM cephalexin 500 mg capsule 500 mg PO Q12H 7 Days Qty: 14 0RF atorvastatin 20 mg tablet 20 mg PO QDAY (DME) OneTouch Ultra Test Strip MISCELLANEOUS glipizide [Glucotrol XL] 5 mg tablet extended release 24hr 5 mg PO QPM metoprolol succinate [Toprol XL] 25 mg tablet extended release 24 hr 25 mg PO DAILY cyclobenzaprine 5 mg tablet 5 mg PO BID PRN (Reason: muscle spasm) cholecalciferol (vitamin D3) [Vitamin D3] 25 mcg (1,000 unit) tablet 25 mcg PO DAILY lisinopril 2.5 mg tablet 2.5 mg PO DAILY 30 Days Qty: 30 0RF febuxostat 40 mg Tablet 40 mg PO DAILY 30 Days Qty: 30 0RF bumetanide 1 mg tablet 1 mg PO QAM Qty: 0 0RF Instructions: Nosebleed (ED) Referrals: Zenobia Marshall MD [Physician] - As needed
== END 2023-10-04 10:33 | disposition home or self-care (01) ==
PROVIDERS: Emergency Provider Emergency Medicine; PCP Family Medicine
DX: Z46.89 Encounter for fitting and adjustment of other specified devices (principal); R04.0 Epistaxis; I11.0 Hypertensive heart disease with heart failure; I50.9 Heart failure, unspecified; C94.6 Myelodysplastic disease, not elsewhere classified; E78.5 Hyperlipidemia, unspecified; E11.9 Type 2 diabetes mellitus without complications; Z95.5 Presence of coronary angioplasty implant and graft; Z79.82 Long term (current) use of aspirin; Z79.899 Other long term (current) drug therapy
CPT/HCPCS: 99281

== ENCOUNTER 2023-10-14 07:25 | Outpatient (RCR) | payer MEDICARE, SELFPAY ==
[2023-10-07 11:22] LABS: Mean Corpuscular HGB Conc 30.8 g/dL (29.9-35.2); Mean Corpuscular Hemoglobin 31.1 pg (25.9-34.0); Mean Platelet Volume 13.7 fL (9.5-13.5); Platelet Count 108 10^3/uL (150-450); Red Blood Count 2.09 10^6/uL (4.70-6.10); Red Cell Distribution Width 21.4 % (11.0-15.0); White Blood Count 2.4 10^3/uL (4.0-11.0)
[2023-10-07 11:25] LABS: Hemoglobin 6.5 g/dL (14.0-18.0)
[2023-10-07 11:26] LABS: Hematocrit 21.1 % (42.0-54.0)
[2023-10-07 11:42] LABS: Band Neutrophils Absolute 0.1 10^3/uL (0.0-0.3); Eosinophils Absolute Manual 0.02 10^3/uL (0.00-0.70); Lymphocytes Absolute Manual 0.79 10^3/uL (1.20-3.80); Metamyelocytes Absolute Manual 0.07; Monocytes Absolute Manual 0.28 10^3/uL (0.30-0.80); Segmented Neut Absolute Manual 1.15 10^3/uL (1.4-6.5)
[2023-10-08] MEDS: DIPHENHYDRAMINE HCL 25 MG CAPSULE PO (09:13)
[2023-10-08] MEDS: ACETAMINOPHEN 325 MG TABLET 650 MG PO (09:13)
[2023-10-08] MEDS: 0.9 % SODIUM CHLORIDE 250 ML 30 ML IV (09:15)
[2023-10-08 09:17] VITALS: BP 99/58; PULSE 50; RESP 20; TEMP 35.9; O2SAT 3
[2023-10-08 09:26] VITALS: BP 99/58; PULSE 50; RESP 20; TEMP 35.9; O2SAT 95
--- NOTE | 2023-10-08 09:29 | PC.NURSE ---
0855: Pt. to [facility] via w/c accompanied by . Assisted to recliner. O2 intact at 3L n/c. VSS. Pt. relays feeling slow today. Denies c/o pain, nausea or dyspnea. #22 gauge IV initiated to right upper arm on first attempt without difficulty. Flushes easily without edema. Pt. tolerated without c/o. IV NS infusing at KVO. Sister arrives to chair side. departs to run errands. 0920: PRBC infusion initiated at this time. Pt. declines wanting to eat. Given chocolate protein shake.
[2023-10-08 10:25] VITALS: BP 106/54; PULSE 60; RESP 16; TEMP 36.2; O2SAT 100
--- NOTE | 2023-10-08 10:26 | PC.NURSE ---
Pt. without c/o or needs. VSS.
--- NOTE | 2023-10-08 10:57 | PC.NURSE ---
Resting quietly with eyes closed. Appears to be without s&s of distress or discomfort. and sister at chairside.
--- NOTE | 2023-10-08 11:50 | PC.NURSE ---
1115 prbc's infused, ns flush began. 1130 patient awake, alert, oriented. Lungs clear to auscultation posteriorly, heart tones regular. 1135 iv dc'd catheter intact cotton ball applied, bleeding stopped, coban applied to site. 1140 up to bathroom per wheel chair. [id number] released per wheelchair to private auto
[2023-10-14 11:39] LABS: Mean Corpuscular HGB Conc 31.5 g/dL (29.9-35.2); Mean Corpuscular Hemoglobin 31.1 pg (25.9-34.0); Mean Corpuscular Volume 98.7 fL (80.0-94.0); Mean Platelet Volume 14.8 fL (9.5-13.5); Platelet Count 85 10^3/uL (150-450); Red Blood Count 2.25 10^6/uL (4.70-6.10); Red Cell Distribution Width 21.2 % (11.0-15.0); White Blood Count 2.1 10^3/uL (4.0-11.0)
[2023-10-14 12:00] LABS: Hematocrit 22.2 % (42.0-54.0)
[2023-10-14 12:24] LABS: Eosinophils Absolute Manual 0.04 10^3/uL (0.00-0.70); Lymphocytes Absolute Manual 0.75 10^3/uL (1.20-3.80); Monocytes Absolute Manual 0.42 10^3/uL (0.30-0.80); Segmented Neut Absolute Manual 0.84 10^3/uL (1.4-6.5)
[2023-10-14 12:45] VITALS: BP 93/55; PULSE 78; RESP 18; TEMP 36.4; O2SAT 98
[2023-10-14] MEDS: ACETAMINOPHEN 325 MG TABLET 650 MG PO (12:55)
[2023-10-14] MEDS: DIPHENHYDRAMINE HCL 25 MG CAPSULE PO (12:56)
[2023-10-14 13:00] VITALS: BP 93/55; PULSE 78; RESP 18; TEMP 36.4; O2SAT 98
[2023-10-14 13:06] VITALS: BP 93/55; PULSE 78; RESP 18; TEMP 36.6; O2SAT 98
[2023-10-14 13:29] VITALS: BP 85/56; PULSE 60; RESP 18; TEMP 36.1; O2SAT 100
[2023-10-14 14:29] VITALS: BP 105/65; PULSE 53; RESP 18; TEMP 36.1; O2SAT 100
[2023-10-14 15:08] VITALS: BP 101/56; PULSE 50; RESP 18; TEMP 36.4; O2SAT 100
--- NOTE | 2023-10-14 15:42 | PC.NURSE ---
Blood verified with MONET Rader. TAR would not work, tried multiple times. Tylenol and Benadryl given for premeds. [id number], exp 10/14/2023 at 2359. Unit is O negative, pt is A Pos. Started at 1300 vitals charted.
== END 2023-10-26 23:59 | disposition home or self-care (01) ==
LOC: INF 07:25
PROVIDERS: PCP Family Medicine; Visit Provider Internal Medicine Hematology & Oncology
DX: I13.0 Hypertensive heart and chronic kidney disease with heart failure and stage 1 through stage 4 chronic kidney disease, or unspecified chronic kidney disease (principal); I43 Cardiomyopathy in diseases classified elsewhere; I50.41 Acute combined systolic (congestive) and diastolic (congestive) heart failure; D46.9 Myelodysplastic syndrome, unspecified; M81.0 Age-related osteoporosis without current pathological fracture; I25.2 Old myocardial infarction; Z87.891 Personal history of nicotine dependence; Z85.6 Personal history of leukemia; D63.1 Anemia in chronic kidney disease; N18.4 Chronic kidney disease, stage 4 (severe); E11.22 Type 2 diabetes mellitus with diabetic chronic kidney disease
CPT/HCPCS: 36415; 36430; 80048; 83880; 85007; 85027; 86850; 86900; 86901; G0463; P9016

== ENCOUNTER 2023-10-14 11:24 | Outpatient (OUT) | payer MEDICARE, SELFPAY ==
[2023-10-14 11:41] LABS: Anion Gap 17.1; Calcium 8.2 mg/dL (8.5-10.1); Carbon Dioxide 27.6 mmol/L (21.0-32.0); Chloride 100 mmol/L (98-107); Estimated GFR (African America 34 (>=60); Estimated GFR (Non-African Ame 28 (>=60); Glucose 100 mg/dL (74-106); Potassium 3.7 mmol/L (3.5-5.1); Sodium 141 mmol/L (136-145)
== END 2023-10-14 11:25 | disposition home or self-care (01) ==
LOC: LAB 11:25
PROVIDERS: PCP Family Medicine; Visit Provider Internal Medicine Interventional Cardiology
DX: I11.0 Hypertensive heart disease with heart failure (principal); I43 Cardiomyopathy in diseases classified elsewhere; I50.41 Acute combined systolic (congestive) and diastolic (congestive) heart failure
CPT/HCPCS: 36415; 80048; 83880

== ENCOUNTER 2023-10-17 04:36 | Emergency (ER) | payer MEDICARE, SELFPAY ==
[2023-10-17 04:40] VITALS: BP 136/48; PULSE 80; RESP 14; TEMP 36.6; O2SAT 100; BMI 32.3
--- OUTSIDE RECORDS SUMMARY | 2023-10-17 04:49 | XMS_ITS | CCD ---
Author Organization [facility] Care Team Providers Care Plant Supervisor Name Role Phone MYLENE ANDREW Unavailable Unavailable Flash Pearl Unavailable Unavailable Evette Sheriff Unavailable Unavailable Flash Pearl Unavailable Unavailable MYLENE ANDREW Unavailable Unavailable Flash Pearl Unavailable Unavailable Evette Sheriff Unavailable Unavailable Flash Pearl Unavailable Unavailable Flash Pearl Primary Care Provider Flash Pearl MD Primary Care Provider Sheng Gomez MD Unavailable Asher Hummel MD Unavailable [phone] Michelle LOG CHIPPER.PROJECT DEVELOPMENT LEADER, Wilfred Unavailable Anh RN, Angle Unavailable [phone] KELSEY RAMIREZ Admitting Unavailable SELF, REFERRED Referring Unavailable FLASH PEARL Primary Care Unavailable LUIS RUIZ Attending Unavailable Flash Pearl MD Primary Care Provider Sheng Gomez MD Unavailable Asher Hummel MD Unavailable Michelle LOG CHIPPER.PROJECT DEVELOPMENT LEADER, Wilfred Unavailable Anh RN, Angle Unavailable Flash Pearl MD Primary Care Provider Asher Hummel MD Unavailable Anh RN, Angle Unavailable Flash Pearl MD Primary Care Provider Flash Pearl MD Primary Care Provider Jason SEN Sheng Garduno Unavailable Estephanie SEN, Asher Unavailable [phone] Michelle LOG CHIPPER.RAMONA, Wilfred Unavailable Anh HEALY, Angle Unavailable CLAUDIAC, DR SORIA Attending Unavailable MISC, DR SORIA Admitting Unavailable REQUEST, NONE LISTED Primary Care Unavaila ble MISC, DR SORIA Attending Unavailable PEARL ., DR FLASH Holden Primary Care Unavailable MISC, DR SORIA Admitting Unavailable MISC, DR SORIA Consulting Unavailable ESTEPHANIE, ASHER Consulting Unavailable FLAKITA ., MARICRUZ Attending Unavailable FLAKITA ., MARICRUZ Admitting Unavailable PEARL ., DR FLASH Holden Procedure Practitioner Unavai lable REQUEST, NONE LISTED Primary Care Unavaila ble PEARL ., DR FLASH Holden Consulting Unavailable NAPLES, DR JOSIE Rowe Consulting Unavailable ZIEBER, DR OUMOU Butts Consulting Unavailable PAY ., DR MEDINA Consulting Unavailable SORENSON, NAYANA Consulting Unavailable FLAKITA ., MARICRUZ Consulting Unavailable LORI, DR RADHA Collado Attending Unavailable LORI, DR RADHA Collado Admitting Unavailable REQUEST, DR NONE LISTED Primary [...] Care Unavailable MISC, DR SORIA Consulting Unavailable LORI, DR RADHA Collado Consulting Unavailable ABSAIGE, ASHER Consulting Unavailable PEARL ., DR FLASH Holden Consulting Unavailable PEARL ., DR FLASH Holden Attending Unavailable PEARL ., DR FLASH Holden Admitting Unavailable PEARL ., DR FLASH Holden Primary Care Unavailable MISC, DR SORIA Admitting Unavailable PEARL ., DR FLASH Holden Primary Care Unavailable MISC, DR SORIA Attending Unavailable MISC, DR SORIA Consulting Unavailable ABHYMARY JO, ASHER Consulting Unavailable REQUEST, DR BARRIOS LISTED Primary Care Unavaila ble ABAZA, DR GARZA Consulting Unavailable MISC, DR SORIA Admitting Unavailable MISC, DOCTOR Attending Unavailable ABHYANKAR, ASHER Consulting Unavailable ABHYANKAR, ASHER Attending Unavailable ABHYANKAR, ASHER Admitting Unavailable REQUEST, DR NONE LISTED Primary Care Unavaila ble ABHYANKAR, ASHER Consulting Unavailable MISC, DOCTOR Attending Unavailable MISC, DR SORIA Admitting Unavailable [...] DR SORIA Attending Unavailable PEARL ., DR FLSAH Holden Primary [...] Unavailable PEARL, FLASH BURR Primary Care Unavailable WILFRED MARTINEZ Referring Unavailable PEARL, FLASH BURR Primary Care Unavailable ABHYANKAR, ASHER Referring Unavailable PEARL, FLASH BURR Primary Care Unavailable WILFRED MARTINEZ Referring Unavailable PEARL, FLASH EDWARD Primary Care Unavailable RADHA SANDOVAL Attending Unavailable PEARL, FLASH EDWARD Primary Care Unavailable ABHYANKAR, ASHER Referring Unavailable PEARL, FLASH EDWARD Primary Care Unavailable ABHYAFUAAR, ASHRE Attending Unavailable WILFRED MARTINEZ Referring Unavailable PEARL, [...] FLASH EDWARD Primary Care Unavailable ABHYAFUAAR, ASHER Referring Unavailable RADHA SANDOVAL Attending Unavailable [...] Unavailable PEARL, FLASH EDWARD Primary Care Unavailable FLASH PEARL EDWARD Primary Care Unavailable ELYSIA ESPOSITO Attending Unavailable ABHYANKAR, ASHER Referring Unavailable PEARLFLASH PAZ EDWARD Primary Care Unavailable ABHYANKAR, ASHER Attending Unavailable WILFRED MARTINEZ Referring Unavailable PEARLFLASH PAZ EDWARD Primary Care Unavailable FLASH PEARL EDWARD Primary Care Unavailable FLASH PEARL EDWARD Primary Care Unavailable PEARL, FLASH EDWARD Primary Care Unavailable PEARL, FLASH EDWARD Primary Care Unavailable PEARL, FLASH EDWARD Primary Care Unavailable ABHYANKAR, ASHER Referring Unavailable PEARL, FLASH EDWARD Primary Care Unavailable ABHYANKAR, ASHER Referring Unavailable ABHYANKAR, ASHER Attending Unavailable ABHYANKAR, ASHER Referring Unavailable PEARLFLASH PAZ EDWARD Primary Care Unavailable WILFRED MARTINEZ Referring Unavailable FLASH PEARL EDDELCAMBRE Primary Care Unavailable ABHYANKAR, ASHER Referring Unavailable [...] Unavailable ABHYANKAR, ASHER Referring Unavailable FLASH PEARL EDDELCAMBRE Primary Care Unavailable ABHYANKAR, ASHER Referring Unavailable FLASH PEARL EDDELCAMBRE Primary Care Unavailable FLASH PEARL EDWARD Primary [...] Unavailable PEARLFLASH PAZ EDWARD Primary Care Unavailable WILFRED MARTINEZ Referring [...] Unavailable PEARL, FLASH EDWARD Primary Care Unavailable ABBRENNANANKAR, ASHER Attending Unavailable WILFRED MARTINEZ Referring Unavailable PEARL, FLASH EDWARD Primary Care Unavailable PEARL, FLASH EDWARD Primary Care Unavailable PEARL, FLASH EDWARD Primary Care Unavailable ELYSIA ESPOSITO Attending Unavailable PEARL, FLASH EDWARD Primary Care Unavailable PEARL, FLASH EDWARD Primary Care Unavailable ELYSIA ESPOSITO S Referring Unavailable ELYSIA ESPOSITO Attending Unavailable ABHYANKAR, ASHER Referring Unavailable PEARL, [...] FLASH EDWARD Primary Care Unavailable ABHYANKAR, SUNDEEP Collado Referring Unavailable PEARL, FLASH EDWARD Primary Care [...] Primary Care Unavailable WILFRED MARTINEZ Attending Unavailable MICHELLE, WILFRED Referring Unavailable PEARL, FLASH EDWARD Primary Care Unavailable PEARL, FLASH EDWARD Primary Care Unavailable ABHYANKAR, ASHER Referring Unavailable WILFRED MARTINEZ Attending Unavailable MICHELLE, WILFRED Referring Unavailable PEARL, FLASH EDWARD Primary Care Unavailable PEARL, FLASH EDWARD Primary Care Unavailable ANISH MARTINEZY Referring Unavailable PEARL, FLASH EDWARD Primary Care Unavailable MICHELLE, WILFRED Referring Unavailable ABHYANKAR, ASHER Referring Unavailable PEARL, FLASH EDWARD Primary Care Unavailable ABHYANKAR, ASHER Referring Unavailable PEARL, FLASH EDWARD Primary Care Unavailable ANISH MARTINEZY Referring Unavailable PEARL, FLASH EDWARD Primary Care Unavailable Álvaro Barton Primary Care Physician MATHEUS MACHADO Referring Unavailable PEARL, FLASH E Primary Care Unavailable BERNARDA HYDE Attending Unavailable Álvaro Barton Attending Unavailable Álvaro Barton Admitting Unavailable Al-Marcherelle, Jose Yadai Admitting Unavailabl e Al-Marrawi, Mhd Yaser Attending Unavailabl e Al-Marraenedelia, Mhd Yaser Attending Unavailabl e Álvaro Barton Referring Unavailable Álvaro Barton Attending Unavailable Álvaro Barton Attending Unavailable Álvaro Barton Attending Unavailable Álvaro Barton Attending Unavailable EarlMalinda marin Admitting Unavailable EarlMalinda marin Attending Unavailable Álvaro Barton Attending Unavailable Álvaro Barton Admitting Unavailable Álvaro Barton Admitting Unavailable Jasper MARIE Attending Unavailable Álvaro Barton Attending Unavailable PEARLFLASH PAZ Attending Unavailable EarlMalinda marin Attending Unavailable PEARLFLASH PAZ E Attending Unavailable Álvaro Barton Attending Unavailable Álvaro Barton Attending Unavailable Álvaro Barton Attending Unavailable Álvaro Barton Attending Unavailable Álvaro Barton Attending Unavailable Mayank DO Attending Unavailable Álvaro Barton Referring Unavailable Mayank DO Attending Unavailable Álvaro Barton Attending Unavailable Álvaro Barton Admitting Unavailable Earl Malinda L Attending Unavailable Earl, Malinda L Admitting Unavailable ZARA, KAREN Attending Unavailable SHENG GOMEZ Attending Unavailable RAYO QUINTERO Attending Unavailable SHENG GOMEZ Attending Unavailable SHENG GOMEZ Attending Unavailable Allergies Allergy Classification Reported Allergen(s) Allergy Type Date of Onset Reaction(s) Facility (2 sources) carvedilol; Translations: [Coreg] Drug Allergy 6 unknown [facility] Repository (20 sources) Bee/Wasp/Ant venom Propensity to adverse reactions 2 [facility] (20 sources) carvedilol; Translations: [CARVEDILOL] Drug Allergy 0 Hives, Weal (disorder) [facility] (1 source) Bee/Wasp/Ant venom; Translations: [Bee/Wasp Stings] Propensity to adverse reactions (disorder) 2 [facility] Repository (1 source) carvedilol Drug Allergy 1 [facility] Repository (1 source) bee venom Drug allergy (disorder) [facility] Repository (1 source) OTHER; Translations: [OTHER] Propensity to adverse reactions (disorder) 2 [facility] Repository (5 sources) Metoprolol; Translations: [metoprolol] [facility] Sulfonamide -class of antibiotic-; Translations: [Sulfonamide -class of antibiotic-] Propensity to adverse reactions (disorder) [facility] Repository (1 source) Bee pollen; Translations: [BEE POLLEN] Propensity to adverse reactions to drug (disorder) 2 [facility] Repository Medications Current Medications Medication Drug [...] Daily, # 90 tab(s), Refills(s) 1, Pharmacy: [facility] [id number], 170.2, cm, 02/13/23 15:53:00 EDT, Height/Length Dosing, [...] BID, # 180 tab(s), Refills(s) 1, Pharmacy: [facility] [id number], 170.2, cm, 02/13/23 15:53:00 EDT, Height/Length Dosing, [...] TID, # 270 tab(s), Refills(s) 1, Pharmacy: [facility] [id number], 170.2, cm, 02/13/23 15:53:00 EDT, Height/Length Dosing, 102.4, kg, 02/13/23 15:53:00 EDT, Weight Dosing Start Date: 02/24/23 Status: Ordered Start: 12-09-2020 colchicine 0.6 mg tablet Take 0.6 mg by mouth as needed. As needed 1-2 times/week 0 12/09/2020 Active Start: 03-25-2017 take 1 tablet by darian th three times daily colchicine 0.6 mg [...] Daily, # 90 tab(s), Refills(s) 1, Pharmacy: [facility] [id number], 170.2, cm, 02/13/23 15:53:00 EDT, Height/Length Dosing, [...] System (Sensor). Replace sensor every 14 days., [employer] [id number], Supply, 170.2, cm, 03/10/23 14:59:0... Start Date: 03/10/23 Status: Ordered Freestyle Carmen Flash 2 Glucose Monitoring 14 Day System (Henefer) (1 source) Start: 03-10-20 Freestyle Carmen Flash 2 Glucose Monitoring 14 Day System ([employer]er) Freestyle Carmen Flash 2 Glucose Monitoring 14 Day System (Hen[employer]er), See Instructions, 1 EA, 0, Freestyle Carmen Flash Glucose Monitoring 14 Day System (Henefer), [employer] [id number], Supply, 170.2, cm, 03/10/23 14:59:00 EDT, Height/Length Dosing, 10... Start Date: 03/10/23 Status: Ordered glipiZIDE er 5 mg 24 hr extended release oral tablet (20 sources) Sulfonylurea Start: 02-25-20 take 1 tablet by mouth twice daily glipiZIDE 5 mg ER Tab 5 mg = 1 tab(s), Oral, BID, # 180 tab(s), Refills(s) 1, Pharmacy: [facility] [id number], 170.2, cm, 02/13/23 15:53:00 EDT, Height/Length Dosing, [...] BID, # 90 tab(s), Refills(s) 1, Pharmacy: [facility] [id number], 170.2, cm, 02/13/23 15:53:00 EDT, Height/Length Dosing, [...] Daily, # 90 tab(s), Refills(s) 1, Pharmacy: [facility] [id number], 170.2, cm, 02/13/23 15:53:00 EDT, Height/Length Dosing, [...] Daily, # 45 tab(s), Refills(s) 1, Pharmacy: [facility] [id number], 170.2, cm, 02/13/23 15:53:00 EDT, Height/Length Dosing, [...] Daily, # 90 cap(s), Refills(s) 1, Pharmacy: [facility] [id number], 170.2, cm, 02/13/23 15:53:00 EDT, Height/Length Dosing, 102.4, kg, 02/13/23 15:53:00 EDT, Weight Dosing Start Date: 02/24/23 Status: Ordered Start: 11-20-2022 take 1 capsule by mo [facility] once daily omeprazole 40 mg Cap-DR [...] Daily, # 90 tab(s), Refills(s) 1, Pharmacy: [facility] [id number], 170.2, cm, 02/13/23 15:53:00 EDT, Height/Length Dosing, [...] Daily, # 90 cap(s), Refills(s) 1, Pharmacy: [facility] [id number], 170.2, cm, 12/03/22 13:27:00 EDT, Height/Length Dosing, [...] Coronary atherosclerosis of unspecified type of vessel, bill moore's slough or graft Take one(1) tablet daily at [...] tablet by mouth twice daily Potassium Chloride (Czi-Huua-Syu M20) 20 mEq oral tablet, extended release 20 mEq = 1 tab(s), Oral, BID, # 180 tab(s), Refills(s) 1, Pharmacy: [facility] [id number], 170.2, cm, 02/13/23 15:53:00 EDT, Height/Length Dosing, 102.4, kg, 02/13/23 15:53:00 EDT, Weight Dosing Start Date: 02/24/23 Status: Ordered Start: 11-20-2022 take 1 tablet by adrian th twice daily Potassium Chloride (Svt-Aiox-Ueu M20) 20 mEq oral tablet, extended release [...] (congestive) and diastolic (congestive) heart failure] Onset: 05-03-2022 Chronic Coronary atherosclerosis and other heart disease (20 sources) Coronary atherosclerosis; Translations: [Atherosclerotic heart disease of bill moore's slough coronary artery without angina pectoris] Onset: 01-13-2002 [...] (valve) insufficiency; Translations: [NONRHEUMATIC MITRAL INSUFFICIENCY] Onset: 05-03-2022 Chronic Hyperplasia of prostate (4 sources) Benign prostatic hyperplasia 09-02-2019 Chronic Hypertension with complications and secondary hypertension (5 sources) Hypertensive heart disease with heart failure; [...] 05-29-2020 05-29-2020 Episodic Other aftercare (1 source) care home (current) use of aspirin; Translations: [VERIFY REP CURRENT USE OF ASPIRIN] Onset: 12-11-2022 Episodic Other aftercare (1 source) Other usp (current) drug therapy; Translations: [OTH NURSING HOME CURRENT DRUG THERAPY] Onset: 12-11-2022 Episodic Other aftercare (1 source) care home (current) use of oral hypoglycemic drugs; Translations: [VERIFY REP USE ORAL HYPOGLYCEMIC DX] Onset: 12-11-2022 Episodic [...] specified disorders of Eustachian tube, bilateral] Episodic Joo-; endo-; and myocarditis; cardiomyopathy (except that caused by tuberculosis or sexually transmitted disease) (2 sources) Cardiomyopathy in diseases classified elsewhere; Translations: [Cardiomyopathy in diseases classified elsewhere] Onset: 10-10-2023 Chronic Pneumonia (except that caused by tuberculosis or sexually transmitted disease) (1 source) Pneumonia, unspecified organism; Translations: [PNEUMONIA UNSPECIFIED ORGANISM] Onset: 12-11-2022 Episodic Pulmonary heart disease (9 sources) Pulmonary hypertension, unspecified; Translations: [Pulmonary hypertension] [...] Name Value Interpretation Reference Range Facil ity 36on 10-15-2023 36 Regarding labs on 10/14/2023: Karen Zuñgia, EMIGDIO Monson, GISELA Boyer, Make sure PCP gets these results, his Hgb is chronically around 7. Renal function is slightly better and potassium is perfect. BNP is elevated more than before- call and see how he is feeling, More short of breath? , More swelling? Is he eating and drinking yet? Ensure/ or boost supplements? Spoke with patient's . She said [facility] lab faxed results to Dr. Barton. She said patient is not c/o increased SOB or LE edema. Says he's eating and drinking fine now. He has follow up in December 2023, and saw his group exercise instructor yesterday. Normal [facility] 36 Potassium continues to improve, Renal function stable- is not worsening BNP remains elevated- continue all CHF meds and regime. Normal [facility] 36on 10-14-2023 36 [facility] lab called to report a critical BNP of 4020. Prior BNP on 09/28 was 3551. Normal [facility] Telephoneon 10-14-2023 Telephone [id number] Sandip Broussard 1940 M Date Provider Department Center 10/14/2023 120-KAREN ZUÑIGA CARD [facility] Family History Problem Relation Age of Onset Hypertension Mother Stroke Father Breast cancer Sister Family Status - Relation Status Age at Mother Father Sister Normal [facility] Ambulatory Visit Summaryon 0 10-13-2023 Ambulatory Visit Summary SANDIP BROUSSARD :1940 Visit Date:10/13/2023 Ambulatory Visit Instructions Your Diagnosis Type 2 diabetes mellitus with hyperlipidemia Bone marrow failure Chronic kidney disease, stage 4 (severe) Chronic respiratory failure with hypoxia Chronic systolic congestive heart failure Immunodeficiency due to drugs Morbid obesity Myelodysplastic syndrome Pulmonary HTN Type 2 diabetes mellitus with diabetic nephropathy, without long-term current use of insulin BMI 31.0-31.9,adult Class 1 obesity due to excess calories in adult Former smoker Hyperlipidemia, unspecified Other usp (current) drug therapy Your Care Team Attending Physician - Álvaro Barton MD Primary Care Physician - Álvaro Barton MD This Is Your Medications List Misc Prescription (Freestyle Carmen 2 Flash Glucose Monitoring 14 Day System (Sensor)) Misc Prescription (Freestyle Carmen Flash 2 Glucose Monitoring 14 Day System (Henefer)) Misc Prescription (Misc DME Prescription) aspirin (aspirin 81 mg Oral EC Tab) atorvastatin (atorvastatin 20 mg Tab) bumetanide (bumetanide 2 mg Tab) cholecalciferol (Vitamin D3 1000 intl units oral tablet) dapagliflozin (Farxiga 10 mg oral tablet) febuxostat glipiZIDE (glipiZIDE 5 mg ER Tab) lisinopril (lisinopril 2.5 mg Tab) metoprolol (metoprolol 25 mg ER Tab) omeprazole (omeprazole 40 mg Cap-DR) potassium chloride (Klor-Con M20 oral tablet, extended release) terazosin (terazosin 5 mg Cap) Procedures Performed cysto/ud, bilateral RG Pyelogram (10/23/2011), Cataract care, Placement of stent in cardiac conduit. Discharge Vitals Temperature (Oral) 36.3 ?C Heart Rate (Peripheral) 56 Respiratory Rate 18 Blood Pressure 102/52 Height 170 cm Height 67 in Weight 92.3 kg Weight 203.06 lb BMI 31.94 What to do next Scheduled Follow-Up Appointments 2023 3:30 PM EDT With: Álvaro Barton MD Where: [facility] Invalid Interpretation Code [address] [place] [address]- \.br\ Friday 2:00 PM EDT \.br\ With:\.br\ Where: [facility] Office Visiton 10-10-2023 Follow-up visit [id number] Sandip Broussard 1940 M Date Provider Department Center 10/10/2023 KAREN SHEIKH [facility] Family History Problem Relation Age of Onset Hypertension Mother Stroke Father Breast cancer Sister Family Status - Relation Status Age at Mother Father Sister Level of Service:59916 ME OFFICE/OUTPATIENT ESTABLISHED LOW MDM 20 MIN Normal [facility] ED Note-Physicianon 10-09-19 ED Note-Physician [id number]#1.00T IFF Normal [facility] Consultation Noteon 10-08-19 Consultation Note [id number]#1.00T IFF Normal [facility] ED Note-Physicianon 10-03-19 ED Note-Physician [id number]#1.00T IFF Normal [facility] ED Note-Physician [id number]#1.00T IFF Normal [facility] Lab Reportson 09-30-2023 Lab Reports [id number]#1.00T IFF Normal [facility] RAD - MISCon 09-30-2023 RAD - MISC [id number]#1.00T IFF Normal [facility] Office Visiton 09-29-2023 Follow-up visit [id number] Sandip Broussard 1940 Date Provider Department Center 09/29/2023 SHENG BERGMAN [facility] Family History Problem Relation Age of Onset Hypertension Mother Stroke Father Breast cancer Sister Family Status - Relation Status Age at Mother Father Sister Level of Service:75744 ME OFFICE/OUTPATIENT ESTABLISHED HIGH MDM 40 MIN Normal [facility] 36on 09-26-2023 36 Patient's made aware to hold bumex over the weekend and have repeat labs before 3:15pm apt with Dr. Gomez on Friday, 09/28. Orders faxed to [facility]. Normal [facility] 36on 09-23-2023 36 [facility] lab called with critical lab values: ProBNP is 2604, BUN is 87. Normal [facility] Ambulatory Visit Summaryon 0 09-22-2023 Ambulatory Visit Summary SANDIP BROUSSARD :1940 Visit Date:09/22/2023 Ambulatory Visit Instructions Your Diagnosis Incomplete bladder emptying BPH with obstruction/lower urinary tract symptoms Penile cyst Your Care Team Attending Physician - HI SEN, Mayank Butts Primary Care Physician - Mick SEN, Álvaro Davies Referring Physician - Mick SEN, Álvaro Davies This Is Your Medications List terazosin (terazosin 5 mg Cap) Contact prescribing physician if questions or concerns Misc Prescription (Freestyle Carmen 2 Flash Glucose Monitoring 14 Day System (Sensor)) Misc Prescription (Freestyle Carmen Flash 2 Glucose Monitoring 14 Day System (Henefer)) Misc Prescription (Misc DME Prescription) aspirin (aspirin 81 mg Oral EC Tab) atorvastatin (atorvastatin 20 mg Tab) bumetanide (bumetanide 2 mg Tab) cholecalciferol (Vitamin D3 1000 intl units oral tablet) dapagliflozin (Farxiga 10 mg oral tablet) febuxostat glipiZIDE (glipiZIDE 5 mg ER Tab) lisinopril (lisinopril 2.5 mg Tab) metoprolol (metoprolol 25 mg ER Tab) omeprazole (omeprazole 40 mg Cap-DR) potassium chloride (Klor-Con M20 oral tablet, extended release) spironolactone (spironolactone 25 mg Tab) Procedures Performed cysto/ud, bilateral RG Pyelogram (10/23/2011), Cataract care, Placement of stent in cardiac conduit. Discharge Vitals Height 170 cm Height 67 in Weight 90 kg Weight 198 lb BMI 31.14 What to do next Scheduled Follow-Up Appointments Friday 1:15 PM EDT With: Mick SEN, Álvaro Davies Where: [facility] [address] [place] [address]- \.br\ You Need to Schedule the Following Appointments\.br\ Follow Up with HI SEN, Mayank Butts, URL When: \.br\ Comments:\.br\ 6 mos (no labs)\.br\ Where:\.br\ [facility] [address]\.br\ [place] [address]-\.br\ [id number]\.br\ Medications\.br\ What How Much When Why Instructions\.br\ Changed terazosin (terazosin 5 mg Cap) 1 Capsules By Mouth Once a day (at bedtime) Pickup at [facility] [id number]\.br\ Unchanged aspirin (aspirin 81 mg Oral EC [...] Flash 2 Glucose Monitoring 14 Day System (Henefer)) See instructions Primary hypertension Type 2 diabetes mellitus with diabetic nephropathy, without long-term current use of insulin Mixed hyperlipidemia Bone marrow failure Freestyle Carmen Flash Glucose Monitoring 14 Day System (Henefer) Contact prescribing physician if questions or concerns [...] if questions or concerns \.br\ Pharmacy Information\.br\ [facility] [id number]: [address], [place] [id number] [phone]\.br\ Allergies\.br\ carvedilol (Hives)\.br\ metoprolol (hives)\.br\ Problems\.br\ Ongoing [...] instructions at home:\.br\ Medicines\.br\ ? \.br\ Take pque-hbq-fggwnlm and prescription medicines only as told by your health care provider. Avoid certain medicines, such as decon [facility] Patient Educationon 09-22-19 24 Patient Education Urology Acute Urinary Retention, Male [...] these instructions at home: Medicines ? Take iczs-bpi-wjcudxf and prescription medicines only as told by [...] provider. Document Revised: 04/04/2021 Document Reviewed: 04/04/2021 [employer] Patient Education ? 2022 [employer]. [facility] 36on 09-16-2023 36 Pro BNP is 4001 Normal [facility] 36 Patient and his stopped by the office today to give you an update. His stomach is very red with dry skin. I called Dr. Barton and he recommended an OTC steroid cream. He said if it didn't improve to call his office to see an BENEFITS ADMINISTRATOR. Patient and his made aware. His weight was 212# today in the office. Would you like him to change increased dose of bumex and potassium? I also ordered BNP since I couldn't find a recent one for him. Please advise. Thanks. [facility] RAD - MISCon 09-12-2023 RAD - MIS [id number]#1.00T IFF Normal [facility] 36on 09-11-2023 36 Patient's alonzo d [...] spironolactone 25mg daily. Any recommendations? Please advise. Normal [facility] Telephoneon 09-11-2023 Telephone [id number] AartiLloydSandip A 1940 [facility] Provider Department Center 09/11/2023 SHENG BERGMAN Family History Problem Relation Age of Onset Hypertension Mother Stroke Father Breast cancer Sister Family Status - Relation Status Age at Mother Father Sister Normal [facility] Retail - Clinical Noteon Retail - Clinical Note [id number]#1.00T IFF Normal [facility] Office Visiton 08-29-2023 Follow-up visit [id number] DixonLloyd beaulieualba Swain 1940 [facility] Provider Department Center 08/29/2023 SHENG BERGMAN Family History Problem Relation Age of Onset Hypertension Mother Stroke Father Breast cancer Sister Family Status - Relation Status Age at Mother Father Sister Level of Service:74336 ME OFFICE/OUTPATIENT ESTABLISHED LOW MDM 20 MIN Normal [facility] Basic Metabolic Profon 08-19 Anion gap [Moles/Vol] 13 mmol/L Normal - [facility] Comment on above: Performed By: #### C LISBET BMP #### [facility] [address] [place] [address] Carbide Operator: Josie Castro MD BUN/CRE Ratio 17 Normal - [facility] Comment on above: Performed By: #### C LISBET BMP #### [facility] [address] [place], [place] [id number] Carbide Operator: Josie Castro MD Calcium [Mass/Vol] 8.9 mg/dL Normal 8.6-10.4 [facility] Comment on above: Performed By: #### C DP, BMP #### [facility] [address] [place] [address] Carbide Operator: Josie Castro MD Chloride [Moles/Vol] 101 mmol/L Normal 98-107 [facility] Comment on above: Performed By: #### C DP, BMP #### [facility] [address] [place] [address] Carbide Operator: Josie Castro MD CO2 [Moles/Vol] 29 mmol/L Normal 20-31 [facility] Comment on above: Performed By: #### C DP, BMP #### [facility] [address] [place] [address] Carbide Operator: Josie Castro MD Creatinine [Mass/Vol] 1.6 mg/dL High 0.7-1.2 [facility] Comment on above: Performed By: #### C DP, BMP #### [facility] [address] [place], [place] [id number] Carbide Operator: Josie Castro MD GFR/1.73 sq M.predicted among non-blacks MDRD (S/P/Bld) [Vol rate/Area] 42 mL/min/{1.73_m2} Low >60 [facility] Comment on above: Result Comment: These [...] Performed By: #### C DP, BMP #### [facility] [address] [place] [address] Carbide Operator: Josie Castro MD Glucose [Mass/Vol] 103 mg/dL High 70-99 [facility] Comment on above: Performed By: #### C DP, BMP #### [facility] [address] [place], [place] [address] Carbide Operator: Josie Castro MD Potassium [Moles/Vol] 4.3 mmol/L Normal 3.7-5.3 [facility] Comment on above: Performed By: #### C DP, BMP #### [facility] [address] [place] [address] Carbide Operator: Josie Castro MD Sodium [Moles/Vol] 143 mmol/L Normal 135-144 [facility] Comment on above: Performed By: #### C DP, BMP #### [facility] [address] [place] [id number] Carbide Operator: Josie Castro MD Urea nitrogen [Mass/Vol] 27 mg/dL High 8-23 [facility] Comment on above: Performed By: #### C DP, BMP #### [facility] [address] [place] [address] Carbide Operator: Josie Castro MD CBC with Diffon 08-19-2023 Abs. Bands 0.07 k/uL Normal 0.0-1.0 [facility] Comment on above: Performed By: #### C DP, BMP #### [facility] [address] [place] [address] Carbide Operator: Josie Castro MD Abs. Basophil Normal 0.0-0.2 [facility] Comment on above: Performed By: #### C DP, BMP #### [facility] [address] [place] [address] Carbide Operator: Josie Castro MD Abs.Imm.Granulocyte Normal 0.00-0.30 [facility] Comment on above: Performed By: #### C DP, BMP #### [facility] [address] [place] [address] Carbide Operator: Josie Castro MD Abs.Neutrophil (Seg) 0.74 k/uL Low 2.1-6.5 [facility] Comment on above: Performed By: #### C DP, BMP #### [facility] [address] [place] [id number] Carbide Operator: Josie Castro MD Bands 3 % Normal 0-10 [facility] Comment on above: Performed By: #### C DP, BMP #### [facility] [address] [place] [address] Carbide Operator: Josie Castro MD Basophil Normal 0-2 [facility] Comment on above: Performed By: #### C DP, BMP #### [facility] [address] [place] [id number] Carbide Operator: Josie Castro MD Eosinophils (Bld) [#/Vol] 0.02 10*3/uL Normal 0.0-0.4 [facility] Comment on above: Performed By: #### C DP, BMP #### [facility] [address] [place] [id number] Carbide Operator: Josie Castro MD Eosinophils/100 WBC (Bld) 1 % Normal 0-5 [facility] Comment on above: Performed By: #### C DP, BMP #### [facility] [address] [place] [address] Carbide Operator: Josie Castro MD Immature Granulocyte Normal 0 [facility] Comment on above: Performed By: #### C DP, BMP #### [facility] [address] [place] [id number] Carbide Operator: Josie Castro MD Lymphocytes (Bld) [#/Vol] 1.03 10*3/uL Normal 1.0-4.8 [facility] Comment on above: Performed By: #### C DP, BMP #### [facility] [address] [place] [address] Carbide Operator: Josie Castro MD Lymphocytes/100 WBC (Bld) 45 % High 13-44 [facility] Comment on above: Performed By: #### C DP, BMP #### [facility] [address] [place] [address] Carbide Operator: Josie Castro MD Monocytes (Bld) [#/Vol] 0.44 10*3/uL Normal 0.0-1.0 [facility] Comment on above: Performed By: #### C DP, BMP #### [facility] [address] [place] [address] Carbide Operator: Josie Castro MD Monocytes/100 WBC (Bld) 19 % High 5-9 [facility] Comment on above: Performed By: #### C DP, BMP #### [facility] [address] [place] [address] Carbide Operator: Josie Castro MD Morphology Edmundo (Bld) [Interp] Decreased Platelets Normal [facility] Comment on above: Result Comment: FEW LARGE PLATELETS Manual Differential Performed MODERATE ANISOCYTOSIS Performed By: #### C DP, BMP #### [facility] [address] [place] [address] Carbide Operator: Josie Castro MD Neutrophil (Seg) 32 % Low 39-75 [facility] Comment on above: Performed By: #### C DP, BMP #### [facility] [address] [place] [address] Carbide Operator: Josie Castro MD Erythrocyte distribution width (RBC) [Ratio] 22.3 % High 12.1-15.2 [facility] Comment on above: Performed By: #### C DP, BMP #### [facility] [address] [place] [address] Carbide Operator: Josie Castro MD Hematocrit (Bld) [Volume fraction] 24.6 % Low 41.0-53.0 [facility] Comment on above: Performed By: #### C DP, BMP #### [facility] [address] [place] [address] Carbide Operator: Josie Castro MD Hemoglobin (Bld) [Mass/Vol] 7.8 g/dL Critically low 13.5-17.5 [facility] Comment on above: Performed By: #### C DP, BMP #### [facility] [address] [place] [address] Carbide Operator: Josie Castro MD MCH (RBC) [Entitic mass] 31.0 pg Normal 26.0-34.0 [facility] Comment on above: Performed By: #### C DP, BMP #### [facility] [address] [place] [address] Carbide Operator: Josie Castro MD MCHC (RBC) [Mass/Vol] 31.7 g/dL Normal 31.0-37.0 [facility] Comment on above: Performed By: #### C DP, BMP #### [facility] [address] [place] [address] Carbide Operator: Josie Castro MD MCV (RBC) [Entitic vol] 97.6 fL Normal 80.0-100.0 [facility] Comment on above: Performed By: #### C DP, BMP #### [facility] [address] [place] [address] Carbide Operator: Josie Castro MD Platelet mean volume (Bld) [Entitic vol] 15.2 fL High 6.0-12.0 [facility] Comment on above: Performed By: #### C DP, BMP #### [facility] [address] [place] [address] Carbide Operator: Josie Castro MD Platelets (Bld) [#/Vol] 71 10*3/uL Low 140-450 [facility] Comment on above: Performed By: #### C DP, BMP #### [facility] [address] [place], [place] [phone] ([phone] Carbide Operator: Josie Castro MD RBC (Bld) [#/Vol] 2.52 10*6/uL Low 4.50-5.90 [facility] Comment on above: Performed By: #### C DP, BMP #### [facility] [address] [place] [address] Carbide Operator: Josie Castro MD WBC (Bld) [#/Vol] 2.3 10*3/uL Critically low 3.5-11.0 [facility] Comment on above: Performed By: #### C DP, BMP #### [facility] [address] [place] [id number] Carbide Operator: Josie Castro MD [facility] 08-04-19 [facility] Case Information Case Priority: None Programs: -- Referral Source: Adult Basic Education Manager Referral Reason: Care coordination Case Type: Transition Care Management Risk Score: -- Case Status: Enrolled (July 11, 2023) Date Assigned: July 11, 2023 Assigned By: Puneet Mcelroy Date Enrolled: July 11, 2023 Assigned Primary Personnel: Puneet Mcelroy Assigned Secondary Personnel: -- Case Physician: Mick SEN, Álvaro Welch Ongoing AP (angina pectoris) 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 Created By: Puneet Mcelroy Date: July 29, 2023 Method: Phone call Type: Outbound Duration (min): 12 Outcome: Case discussion Contact Type: clinical care coordinator Contact Name: Puneet Mcelroy Notes: TCM#5- spoke with spouse, see ft summary note. Created By: Puneet Mcelroy Date: July 22, 2023 Method: Phone call Type: Outbound Duration (min): 2 Outcome: Case discussion Contact Type: clinical care coordinator Contact Name: Puneet Mcelroy Notes: TCM##4-wgt- Spoke with spouse Nicki for TCM/wgt progrtam call status update, see ft sumamry note. Created By: Puneet Mcelroy Date: July 17, 2023 Method: Phone call Type: Outbound Duration (min): 6 Outcome: Case discussion Contact Type: clinical care coordinator Contact Name: Puneet Mcelroy Notes: TCM#3-wgt, spoke with spouse, Nicki for tcm call status update, see ft summary note. Created By: Puneet Mcelroy Date: July 14, 2023 Method: Phone call Type: Inbound Duration (min): 2 Outcome: Case discussion Contact Type: Spouse Contact Name: Nicki Notes: TCM#2/wgt- Spoke with spouse Nicki for TCM/wgt, see ft summary note. Crea (more content not included)... Normal [facility] Lab Reportson 07-30-2023 Lab Reports [id number]#1.00T IFF Normal [facility] 07-29-19 24 Population Health Case Information Case Priority: None Programs: -- Referral Source: Adult Basic Education Manager Referral Reason: Care coordination Case Type: Transition [...] hypoxia Chronic systolic congestive heart failure [facility] Hospital discharge follow-up Immunodeficiency due to drugs [...] Flash 2 Glucose Monitoring 14 Day System (Henefer), See Instructions glipiZIDE 5 mg ER Tab, [...] (min): 12 Outcome: Case discussion Contact Type: clinical care coordinator Contact Name: Puneet Mcelroy Notes: TCM#5- spoke with spouse, see ft summary note. Created By: Puneet Mcelroy Date: July 22, 2023 Method: Phone call Type: Outbound Duration (min): 2 Outcome: Case discussion Contact Type: clinical care coordinator Contact Name: Puneet Mcelroy Notes: TCM##4-wgt- Spoke with spouse Nicki for TCM/wgt progrtam call status update, see ft sumamry note. Created By: Puneet Mcelroy Date: July 17, 2023 Method: Phone call Type: Outbound Duration (min): 6 Outcome: Case discussion Contact Type: clinical care coordinator Contact Name: Puneet Mcelroy Notes: TCM#3-wgt, [...] (min): 1 Outcome: Left message-voicemail Contact Type: clinical care coordinator Contact Name: Puneet Mcelroy Notes: TCM#2/wgt check- Attempted to contact patient for TCM/wgt status update, no answer, LM for retturn call. Created By: Puneet Mcelroy Date: July 11, 2023 Method: Phone call Type: Outbound Duration (more content not included)... [facility] Retail - Clinical Noteon Retail - Clinical Note [id number]#1.00T IFF [facility] Population Healthon 07-22-20 Population Health Case Information Case Priority: None Programs: -- Referral Source: Adult Basic Education Manager Referral Reason: Care coordination Case Type: Transition [...] hypoxia Chronic systolic congestive heart failure [facility] Hospital discharge follow-up Immunodeficiency due to drugs [...] Flash 2 Glucose Monitoring 14 Day System (Henefer), See Instructions glipiZIDE 5 mg ER Tab, [...] (min): 2 Outcome: Case discussion Contact Type: clinical care coordinator Contact Name: Puneet Mcelroy Notes: TCM##4-wgt- Spoke with spouse Nicki for TCM/wgt progrtam call status update, see ft sumamry note. Created By: Puneet Mcelroy Date: July 17, 2023 Method: Phone call Type: Outbound Duration (min): 6 Outcome: Case discussion Contact Type: clinical care coordinator Contact Name: Puneet Mcelroy Notes: TCM#3-wgt, [...] (min): 1 Outcome: Left message-voicemail Contact Type: clinical care coordinator Contact Name: Puneet Mcelroy Notes: TCM#2/wgt check- Attempted to contact patient for TCM/wgt status update, no answer, LM for retturn call. Created By: Puneet Mcelroy Date: July 11, 2023 Method: Phone call Type: Outbound Duration (min): 8 Outcome: Case discussion Contact Type: clinical care coordinator Contact Name: Puneet Mcelroy Notes: TCM#1- Spoke with spouse for initial TCM program call status update, see ft summary note. Created By: Puneet Mcelroy [facility] Office Visiton 07-17-2023 Follow-up visit [id number] Sandip Broussard 1940 M Date Provider Department Center 07/17/2023 Omid[facility]O [facility] Family History Problem Relation Age of Onset Hypertension Mother Stroke Father Breast cancer Sister Family Status - Relation Status Age at Mother Father Sister Level of Service:95735 ME OFFICE/OUTPATIENT ESTABLISHED MOD MDM 30 MIN Reason for Visit and Comments: Hospital Follow-up [832] [facility] Population Healthon 07-17-20 23 Population Health Case Information Case Priority: None Programs: -- Referral Source: Adult Basic Education Manager Referral Reason: Care coordination Case Type: Transition [...] hypoxia Chronic systolic congestive heart failure [facility] discharge follow-up Immunodeficiency due to drugs Kidney [...] Flash 2 Glucose Monitoring 14 Day System (Henefer), See Instructions glipiZIDE 5 mg ER Tab, [...] (min): 6 Outcome: Case discussion Contact Type: clinical care coordinator Contact Name: Puneet Mcelroy Notes: DENNIS#3-wgt, spoke with spouse, Nicki for tcm call status update, see ft summary note. Created By: Puneet Mcelroy Date: July 14, 2023 Method: Phone call Type: Inbound Duration (min): 2 Outcome: Case discussion Contact Type: Spouse Contact Name: Nicki Notes: DENNIS#2/wgt- Spoke with spouse Nicki for TCM/wgt, see ft summary note. Created By: Puneet Mcelroy Date: July 14, 2023 Method: Phone call Type: Outbound Duration (min): 1 Outcome: Left message-voicemail Contact Type: clinical care coordinator Contact Name: Puneet Mcelroy Notes: DENNIS#2/wgt check- Attempted to contact patient for TCM/wgt status update, no answer, LM for retturn call. Created By: Puneet Mcelroy Date: July 11, 2023 Method: Phone call Type: Outbound Duration (min): 8 Outcome: Case discussion Contact Type: clinical care coordinator Contact Name: Lilibeth, Puneet R Notes: TCM#1- Spoke with spouse for initial TCM program call status update, see ft summary note. Created By: Puneet Mcelroy Normal [facility] ED Note-Physicianon 07-16-20 ED Note-Physician [id number]#1.00T IFF Normal [facility] Outside Hospital Correspo ndenceon 07-16-2023 Outside Hospital Correspondence [id number]#1.00T IFF Normal [facility] Physician Referralon 023 Physician Referral [id number]#1.00 TIFF Normal [facility] RAD - MISCon 07-16-2023 RAD - MISC [id number]#1.00T IFF Normal [facility] Family Medicine Office/Clini c Noteon 07-15-2023 Family Medicine Office/Clinic Note HPI Staff Sandip is an 82 year old male presenting for follow up anemia Hospital: [facility] Admission date: 07/08 Discharge date: Symptoms the [...] documented 3008F (more content not included)... Normal [facility] Comment on above: Result Comment: Elec tronically Signed By: Mick SEN, Álvaro Davies\.br\Date and Time Signed: 07/15/23 14:28 EST Patient Educationon 07-15-20 23 Patient Education Nutrition BMI for Adults [...] numbers. This can be done either in [place] or metric measurements. Note that charts and online BMI calculators are available to help you find your BMI quickly and easily without having to do these calculations yourself. To calculate your BMI in [place] measurements: 1. Measure your weight in [...] for Disease Control and Prevention: www.cdc.gov ? [place] Heart [employer]: www.heart.org ? National Heart, Lung, and Blood [place]: www.nhlbi.nih.gov Summary ? Body mass index (BMI) is a number that is calculated from a person's weight and height. ? BMI may help estimate how much of a person's weight is composed of fat. BMI can help identify those who may be at higher risk for certain medical problems. ? BMI can be measured using [place] measurements or metric measurements. ? BMI charts are used to identify whether you are underweight, normal weight, overweight, or obese. This information is not intended to replace advice given to you by your health care provider. Make sure you discuss any questions you have with your health care provider. Document Revised: 04/05/2020 Document Reviewed: 02/11/2020 [employer] Patient Education ? 2022 [employer]. [facility] 07-14-20 Population Health Case Information Case Priority: None Programs: -- Referral Source: Adult Basic Education Manager Referral Reason: Care coordination Case Type: Transition [...] refills, Still taking, not as prescribed: Per [facility] D/C 07/10, patient to take 1 mg QAM colchicine 0.6 mg Tab, 0.6 mg= 1 tab(s), Oral, TID, 1 refills, Not taking: per [facility] d/c 07/10, do not take Farxiga 10 mg oral tablet, 10 mg= 1 tab(s), Oral, Daily, 1 refills febuxostat, 40 mg, Oral, Daily Freestyle Carmen 2 Flash Glucose Monitoring 14 Day System (Sensor), See Instructions Freestyle Carmen Flash 2 Glucose Monitoring 14 Day System (Henefer), See Instructions glipiZIDE 5 mg ER Tab, 5 mg= 1 tab(s), Oral, BID, 1 refills lisinopril 10 mg Tab, See Instructions, Still taking, not as prescribed: per [facility] d/c 07/10, dose decreased, take 2.5 mg QD metolazone 2.5 mg Tab, 2.5 mg= 1 tab(s), Oral, Daily, 1 refills, Not taking: per [facility] d/c 07/10- do not take metoprolol 25 mg ER Tab, 12.5 mg= 0.5 tab(s), Oral, Daily, 1 refills Misc DME Prescription, See Instructions omeprazole 40 mg Cap-DR, 40 mg= 1 cap(s), Oral, Daily, 1 refills Potassium Chloride (Fvs-Fbsa-Bit M20) 20 mEq oral tablet, extended release, 20 mEq= 1 tab(s), Oral, BID, 1 refills, Not taking: per [facility] d/c 07/10, do not take spironolactone 25 [...] (min): 1 Outcome: Left message-voicemail Contact Type: clinical care coordinator Contact Name: Puneet Mcelroy Notes: TCM#2/wgt check- Attempted to contact patient for TCM/wgt status update, no answer, LM for retturn call. Created By: Puneet Mcelroy Date: July 11, 2023 Method: Phone call Type: Outbound Duration (min): 8 Outcome: Case discussion Contact Type: clinical care coordinator Contact Name: Puneet Mcelroy Notes: TCM#1- Spoke with spouse for initial TCM program call status update, see ft summary note. Created By: Puneet Mcelroy [facility] Pre-Visit Planningon 023 Pre-Visit Planning - From: Karen Frye To: Álvaro Barton MD; Sent: 07/11/2023 11:03:29 EST Subject: Pre-Visit Planning Due Date/Time: 07/11/2023 11:03:00 EST Caller Name: SANDIP BROUSSARD; Caller Number: H , M Ok Dr. Barton. During a pre-visit planning chart [...] feel free to contact me at extension [phone]. Thank you! Karen Frye LPN From: Álvaro Barton MD To: Karen Frye; Sent: 07/14/2023 12:29:52 EST Subject: RE: Pre-Visit Planning Caller Name: SANDIP BROUSSARD; Caller Number: H , M -Immunodeficiency due to drugs Normal [address] [place] [address] Pre-Visit Planning - From: Karen Frye To: Álvaro Barton MD; Sent: 07/11/2023 10:52:44 EST Subject: Pre-Visit Planning Due Date/Time: 07/11/2023 10:52:00 EST Caller Name: SANDIP BROUSSARD; Caller Number: Kofi , M Ok Dr. Barton. During a pre-visit planning chart [...] feel free to contact me at extension [phone]. Thank you! Karen Frye LPN From: Álvaro Barton MD To: Karen Frye; Sent: 07/14/2023 12:28:56 EST Subject: RE: Pre-Visit Planning Caller Name: SANDIP BROUSSARD; Caller Number: Kofi , Tobias -Chronic respiratory failure with hypoxia Normal [address] [place] [address] Pre-Visit Planning - From: Karen Frye To: Álvaro Barton MD; Sent: 07/11/2023 10:36:38 EST Subject: Pre-Visit Planning Due Date/Time: 07/11/2023 10:36:00 EST Caller Name: SANDIP BROUSSARD; Caller Number: H , M Ok Dr. Barton. During a pre-visit planning chart [...] Name: SANDIP BROUSSARD; Caller Number: H , -Morbid obesity Normal [address] [place] [address] 07-11-20 [facility] Case Information Case Priority: None Programs: -- Referral Source: Adult Basic Education Manager Referral Reason: Care coordination Case Type: Transition [...] refills, Still taking, not as prescribed: Per [facility] D/C 07/10, patient to take 1 mg QAM colchicine 0.6 mg Tab, 0.6 mg= 1 tab(s), Oral, TID, 1 refills, Not taking: per [facility] d/c 07/10, do not take Farxiga 10 mg oral tablet, 10 mg= 1 tab(s), Oral, Daily, 1 refills febuxostat, 40 mg, Oral, Daily Freestyle Carmen 2 Flash Glucose Monitoring 14 Day System (Sensor), See Instructions Freestyle Carmen Flash 2 Glucose Monitoring 14 Day System (Henefer), See Instructions glipiZIDE 5 mg ER Tab, 5 mg= 1 tab(s), Oral, BID, 1 refills lisinopril 10 mg Tab, See Instructions, Still taking, not as prescribed: per [facility] d/c 07/10, dose decreased, take 2.5 mg QD metolazone 2.5 mg Tab, 2.5 mg= 1 tab(s), Oral, Daily, 1 refills, Not taking: per [facility] d/c 07/10- do not take metoprolol 25 mg ER Tab, 12.5 mg= 0.5 tab(s), Oral, Daily, 1 refills Misc DME Prescription, See Instructions omeprazole 40 mg Cap-DR, 40 mg= 1 cap(s), Oral, Daily, 1 refills Potassium Chloride (Kcs-Vbpn-Uyd M20) 20 mEq oral tablet, extended release, 20 mEq= 1 tab(s), Oral, BID, 1 refills, Not taking: per [facility] d/c 07/10, do not take spironolactone 25 [...] f/u with PCP, Dr. Barton 07/15 @ 5638 Did you understand your discharge instructions? yes [...] with patient: (more content not included)... Normal [facility] 36on 05-28-2023 36 Wrong dosage Normal [facility] [id number] IFF Normal [facility] Family Medicine Office/Clini c Noteon 04-21-2023 [...] His last blood transfusion was today at [facility]. He was seen by his oncologist last week and the week before. He is seeing Dr. Humphrey in [place]. His oncologist is keeping him on a [...] with voice recognition artificial intelligence software, specifically Powered Outcomes, Vouchercloud and or LiveOnDemand. Substitutions may have occurred due to the inherent limitations of voice recognition and artificial intelligence software. ATTESTATION: Documentation services were performed after patient or guardian consented to allow [employer] to record this visit. VIRGEN beauty specialist and provider reviewed before signing. VIRGEN: [...] Historical No (more content not included)... Normal [facility] Comment on above: Result Comment: Elec tronically Signed By: Álvaro Barton MD\.br\Date and Time Signed: 04/21/23 10:37 EDT\.br\Electronically Co-Signed By: Itzel Morrow\.br\Date and Time Co-Signed: 04/16/23 16:56 EDT Consent for Flu Vaccineon Consent for Flu Vaccine [id number]#[id number] D:127 Normal [facility] Ambulatory Visit Summaryon 0 04-16-2023 Ambulatory Visit Summary AARTI SANDIP A :1940 Visit Date:04/16/2023 Ambulatory Visit Instructions Your [...] Flash 2 Glucose Monitoring 14 Day System (Henefer)) [facility] Prescription ([facility] DME Prescription) aspirin (aspirin 81 mg Oral [...] 40 mg Cap-DR) potassium chloride (Potassium Chloride (Omz-Lkkn-Mnv M20) 20 mEq oral tablet, extended release) [...] EST With: Mick SEN, Álvaro Davies Where: [place] [id number]- \.br\ Medications\.br\ What How Much When Why [...] Flash 2 Glucose Monitoring 14 Day System (Henefer)) See instructions Primary hypertension Type 2 diabetes mellitus with diabetic nephropathy, without long-term current use of insulin Mixed hyperlipidemia Bone marrow failure Freestyle Carmen Flash Glucose Monitoring 14 Day System (Henefer) \.br\ Unchanged Misc Prescription (Misc DME Prescription) See instructions One touch ultra blue test strips Use as directed to test sugars once a day \.br\ Unchanged omeprazole (omeprazole 40 mg Cap-DR) 1 Capsules By Mouth Every day\.br\ Unchanged potassium chloride (Potassium Chloride (Hcx-Gjrw-Wed M20) 20 mEq oral tablet, extended release) [...] of insulin\.br\ Urge incontinence\.br\ Urinary urgency\.br\ \.br\ [facility] 04-07-2023 Outside [facility] [id number]#1.00C D:127 Normal [facility] 03-20-2023 Outside [facility] [id number]#1.00C D:127 Normal [facility] Physician Orderon 03-19-2023 Physician Order [id number]#1.00 CD:127 Normal [facility] .Interpretation:on 3 HCV Ab IA Ql Comment Invalid Interpretation Code [facility] Comment on above: Result Comment: Not infected with HCV unless early or acute infection is suspected (which may be delayed in an immunocompromised individual), or other evidence exists to indicate HCV infection. Performed at: [address] [id number] PhD Mingo Mckeon Performed By: #### 2 [id number], 1474087012, 9365003, 7513925389, 5390445618, 635945621, 2591464, 9502498464, 1881484, 8339926, 1226072, 1733987116, 2981003, 3798102, 8804963, 09802186, 1155703, 342162499, 3445713915, 10202527, 7172580, 3692194, 7044249710 ####[place] [address] [place] [address] Comp panel: Leuk/Lym [id number] n 03-18-2023 Analysis and Gating Strategy Comment Invalid Interpretation Code [facility] Comment on above: Result Comment: 8 co tete analysis with CD45/SSC gating Technical-Analysis performed at [facility], [address] [place] [address] Director: Lisa Anguiano Formerly [facility] Performed By: #### 2 147188628, 8399113779, 1822684, 0860795742, 6256525184, 114053479, 9590054, 6169656274, 6670161, 1515659, 2747517, 9089447234, 1683962, 6498347, 0382346, 93590858, 6964871, 403987737, 9487855808, 96025207, 9416289, 7304100, 6776450923 ####[facility] [address] [place] [address] Annotation comment [Interpretation] Narrative Comment Invalid Interpretation Code [facility] Comment on above: Result Comment: If m onocytosis (absolute count >= 500/uL and >= 10% of leukocytes) persists for > 3 months without secondary etiologies identified, further evaluation of a myeloid neoplasm, such as chronic myelomonocytic leukemia, is warranted if clinically indicated. Recommend clinical correlation. Performed By: #### 2 385011396, 2090383593, 8085225, 3649561907, 0791575377, 824789357, 5666231, 2679816752, 8339338, 2256399, 5763250, 3278304455, 2441253, 7230789, 1081570, 56650597, 2265075, 007678004, 8308001161, 77567837, 7950574, 8863068, 6872066476 ####[facility] [address] [place] [address] Assessment of Leukocytes Comment Invalid Interpretation Code [facility] Comment on above: Result Comment: No [...] NK cells 22% Performed By: #### 2 909499783, 0332703524, 6585752, 8615981105, 0704012727, 332438198, 2427721, 5614045022, 7132135, 1800720, 1479102, 2240371275, 6283655, 1739989, 2674614, 52575837, 7890473, 370874692, 5629591861, 96637203, 9661814, 6574289, 5292405371 ####[facility] [address] [place] [id number] CLINICAL INFORMATION:FIND:PT : Comment Invalid Interpretation Code [facility] Comment on above: Result Comment: A re cent CBC was not available for review at the time this report was prepared. Performed By: #### 2 187853893, 6606016559, 0373847, 5934269156, 6433322663, 640830263, 6757126, 7294676558, 7623366, 8032515, 5819856, 9396038246, 0957702, 0166700, 6156813, 83636033, 9790236, 835582799, 0742311708, 01401654, 6004219, 4554316, 0786706975 ####[facility] [address] [place] [address] Immunophenotyping study Comment Invalid Interpretation Code [facility] Comment on above: Result Comment: CD2 Normal CD3 Normal CD4 Normal CD5 Normal CD7 Normal CD8 Normal CD10 Normal CD11b Normal CD13 Normal CD14 Normal CD16 Normal CD19 Normal CD20 Normal CD33 Normal CD34 Normal CD38 Normal CD45 Normal CD56 See Text CD57 Normal CD117 Normal HLA-DR Normal KAPPA Normal LAMBDA Normal CD64 Normal Performed By: #### 2 221029377, 4769993781, 7992059, 6995774784, 1353383866, 067761944, 6611668, 4192465642, 4704381, 3257183, 9733727, 2110352480, 9774922, 0430788, 6210933, 27507592, 9689977, 179670061, 7971053075, 55238979, 7121977, 5845949, 1049438758 ####[facility] [address] [place] [id number] Laboratory comment Edmundo (Report) Comment Invalid Interpretation Code [facility] Comment on above: Result Comment: Each antibody in this assay was utilized to assess for potential abnormalities of studied cell populations or to characterize identified abnormalities. This test was developed and its performance characteristics determined by [employer]. It has not been cleared or approved by the U.S. Food and Drug Administration. The FDA has determined that such clearance or approval is not necessary. This test is used for clinical purposes. It should not be regarded as investigational or for research. Performed at: -Y [facility] [address] [facility], [place] [id number] Formerly [facility] Silvio Gonzalez Performed at: TG [facility] [address] [place], [place] [id number] [facility] Performed By: #### 2 030773425, 2516706514, 7654664, 6761871469, 2426055209, 204629459, 3560416, 7870294650, 7766845, 4249505, 3980093, 6843410665, 9042936, 4890658, 8736698, 87263007, 1873945, 957474109, 0617312225, 18829952, 8399587, 0055325, 4785235433 ####[facility] [address] [place] [address] Pathologist interpretation (Unsp spec) [Interp] Comment Invalid Interpretation Code [facility] Comment on above: Result Comment: Aber rant monocytosis and left shifted neutrophils, see comment. Performed By: #### 2 917277411, 0465287811, 8891380, 5173559555, 5530364394, 801293926, 1413533, 6892112546, 5122629, 8493918, 1822758, 7881971213, 3579145, 9248522, 6221205, 41903962, 5473501, 461528367, 0311144753, 30501571, 6310931, 6520666, 5523602941 ####[address] [place] [address] Pathologist name Comment Invalid Interpretation Code [facility] Comment on above: Result Comment: Esdras Alexandra M.D. Performed By: #### 2 344368018, 8994190532, 6777103, 6458810367, 3470394129, 806147290, 6509518, 7530546849, 7748387, 1191418, 5423624, 4242916252, 7015443, 9736489, 9032986, 21626920, 0355434, 767196653, 1514967043, 03848446, 8560519, 0753124, 3910706778 ####[address] [place] [address] Specimen source Nom (Unsp spec) Comment Invalid Interpretation Code [facility] Comment on above: Result Comment: Joo pheral blood Performed By: #### 2 538500178, 6935832545, 1616247, 2503335982, 5925623948, 800040600, 9815756, 4211807012, 5847201, 4581688, 5895090, 5853654452, 6535810, 6838703, 6061346, 51179462, 5469522, 069212237, 4489898225, 97499679, 7198138, 7765035, 3521522032 ####[address] [address] [place] [address] Viable cells/100 cells (Unsp spec) Comment Invalid Interpretation Code [facility] Comment on above: Result Comment: 84% Performed By: #### 2 803045285, 5275932724, 0239401, 2365116331, 5404609242, 903952711, 0872603, 6996140842, 4957057, 4257891, 7999686, 4355870866, 6585834, 9938281, 8082100, 25529739, 7760479, 033548144, 8508280162, 04524928, 4122576, 8466622, 3777935502 ####[address] [address] [place] [address] Copper Lvlon 03-18-2023 Copper [Mass/Vol] 73 microgram/dL Invalid Interpretation Code 69132 [facility] Comment on above: Result Comment: This test was developed and its performance characteristics determined by [facility]. It has not been cleared or approved by the Food and Drug Administration. Detection Limit = 5 Performed at: [facility] [address] [place], [place] [id number] MD Ronaldo Dao Performed By: #### 2 495079757, 4874315869, 0973580, 6277688983, 1817529078, 060570586, 3716357, 6457802099, 5555970, 9756392, 2005502, 4348882135, 6990097, 6852642, 4922373, 05082107, 4618750, 661321497, 6615846903, 64580989, 6062649, 4290003, 6626934177 ####[facility] [address] [place] [address] Flow Interp 16 or moreon Flow Interp 16 or more Performed Invalid Interpretation Code [facility] Comment on above: Result Comment: Perf ormed at: -Y [facility] [address] [place] [id number] Former[facility] Sivlio Gonzalez Performed By: #### 2 377235443, 9848579974, 2362947, 1423107918, 7946981953, 266888123, 9133897, 2219251856, 0736685, 6298968, 8779422, 1056723684, 3402471, 2466331, 3153886, 28770933, 9755501, 587216798, 4294092568, 79667911, 6497750, 0894130, 3951297345 ####[facility] [address] [place] [address] Flow Marker, Firston 023 Flow Marker, First Performed Invalid Interpretation Code [facility] Comment on above: Result Comment: Perf ormed at: -[facility] [address] [place] [id number] [facility] Silvio Gonzalez Performed By: #### 2 095837487, 4469729880, 7837495, 6416712163, 7655942461, 514548758, 6605539, 7631025714, 2142004, 8879330, 0534838, 6788252667, 2583397, 7598767, 6736242, 29199098, 2137104, 606614566, 0685650987, 85328666, 6691514, 2822282, 3066610340 ####[facility] [address] [place] [address] Flow Markers X 15on 03-18-20 23 Flow Markers X 15 Performed Invalid Interpretation Code [facility] Comment on above: Result Comment: Perf ormed at: -[facility] [address] [facility] [place], [place] [id number] [facility] An[facility] Performed By: #### 2 942860025, 4545706890, 9569940, 2122820017, 2834735444, 455316041, 7288643, 4075955575, 5552322, 1967320, 8816716, 2486059577, 3138198, 9896989, 4399061, 18953430, 2989629, 246876316, 1979394025, 16055363, 3631663, 9071657, 0870635271 ####[address] [place] [address] Flow Markers X 3on 3 Flow Markers X 3 Performed Invalid Interpretation Code [facility] Comment on above: Result Comment: Perf ormed at: -[facility] [address] [facility] [place], [place] [id number] [facility] Chenn Anjen Performed By: #### 2 760638482, 6079957296, 7537194, 4338294122, 8651010661, 880911032, 6890505, 6385398617, 6698426, 0669006, 2135814, 0542634632, 2954235, 7190274, 5345245, 85786268, 7509217, 857340835, 6360509562, 75488886, 2046472, 1874804, 6648706431 ####[facility] [address] [place] [address] Flow Markers X 5on 3 Flow Markers X 5 Performed Invalid Interpretation Code [facility] Comment on above: Result Comment: Perf ormed at: -Y [facility] [address] [facility], [place] [id number] [facility] Silvio Gonzalez Performed By: #### 2 057917525, 2493356750, 5065593, 5384366161, 8165642465, 851126340, 9710408, 5928445610, 1945101, 9749082, 9471159, 3305337867, 4628635, 0416019, 7401473, 33098952, 3429185, 164344456, 7690829246, 94567479, 3053621, 6001206, 3440694963 ####[place] [address] [place] [address] HCV Antibody RFX to Quant PC Zach 03-18-2023 HCV IgG IA Ql Non-Reactive Invalid Interpretation Code Non Reactive [facility] Comment on above: Result Comment: Perf ormed at: [facility] [address] [id number] PhD Mingo Mckeon Performed By: #### 2 975470109, 5557623190, 9292573, 0246083585, 1821275002, 068621447, 2714657, 5980981944, 0579147, 6716656, 0832014, 7102600522, 4668500, 1211546, 1842058, 12810018, 3015268, 482433680, 8966573486, 42926101, 3773219, 3195692, 3709059150 ####[facility] [address] [place] [address] HIV Screen 4th Generation wR fxon 03-18-2023 HIV 1+2 Ab+HIV1 p24 Ag IA Ql Non-Reactive Invalid Interpretation Code Non Reactive [facility] Comment on above: Result Comment: HIV Negative HIV-1/HIV-2 antibodies and HIV-1 p24 antigen were NOT detected. There is no laboratory evidence of HIV infection. Performed at: [address] [id number] PhD Mingo Mckeon Performed By: #### 2 031383792, 0239308084, 8881231, 5265204329, 0732349548, 079106188, 8128562, 2965355769, 9653988, 6977737, 2800724, 4663768819, 4624602, 8078642, 7104284, 99732606, 9445134, 031295215, 0462490706, 29980735, 9536044, 7460517, 5893943776 ####[address] [place] [address] Hep A IgMon 03-18-2023 HAV IgM IA Ql Negative Invalid Interpretation Code Negative [facility] Comment on above: Result Comment: Perf ormed at: [address] [id number] PhD Mingo Mckeon Performed By: #### 2 200717882, 1073205646, 4972085, 0703948710, 6035022734, 963352013, 8795171, 6771673907, 2905504, 4403764, 7773246, 2650846865, 5247412, 1258920, 0394810, 03390509, 8219021, 503435353, 6924873505, 24989064, 9710343, 7101724, 8456404491 ####[address] [place] [address] Hep B Core Ab, IgMon 023 HBV core IgM IA Ql Negative Invalid Interpretation Code Negative [facility] Comment on above: Result Comment: Perf ormed at: [address] [id number] PhD Mingo Mckeon Performed By: #### 2 602272271, 3650567586, 4668015, 2556199428, 7498169612, 236489251, 6754590, 3853805272, 9753571, 6702465, 9741799, 3663342573, 0821020, 9480335, 4272354, 06060713, 6266585, 780238578, 5617725258, 48785388, 1696205, 0364276, 3290544015 ####[facility] [address] [place] [address] Hep Bs Abon 03-18-2023 HBV surface Ab Ql (S) Non-Reactive Invalid Interpretation Code [facility] Comment on above: Result Comment: Non Reactive: Inconsistent with immunity, less than 10 mIU/mL Reactive: Consistent with immunity, greater than 9.9 mIU/mL Performed at: [facility] [address] [id number] PhD Mingo Mckeon Performed By: #### 2 763505976, 7118076931, 7978682, 4788374131, 1643319464, 245251041, 2446654, 0758634169, 4564869, 1293495, 4074656, 0330763977, 9262535, 5727826, 8457166, 30231448, 5267584, 103018062, 4424823435, 22256383, 2308412, 3637448, 2714405789 ####[facility] [address] [place] [address] Hep Bs Agon 03-18-2023 HBV surface Ag IA Ql Negative Invalid Interpretation Code Negative [facility] Comment on above: Result Comment: Perf ormed at: [facility] [address] [id number] PhD Migno Mckeon Performed By: #### 2 367509834, 7413946398, 0937086, 5839223001, 4023345045, 470991313, 0180096, 6484438288, 9948230, 9314856, 2466038, 1596154887, 3277050, 9568044, 8623581, 24995222, 7761298, 721764748, 6483758580, 28455249, 6663567, 1894922, 6994284995 ####[facility] [address] [place] [address] Office Visiton 03-14-2023 Follow-up visit [id number] Sandip Broussard 1940 M Date Provider Department Center 03/14/2023 SHENG BERGMAN CARD [facility] Family History Problem Relation Age of Onset Hypertension Mother Stroke Father Breast cancer Sister Family Status - Relation Status Age at Mother Father Sister Level of Service:18199 ME OFFICE/OUTPATIENT ESTABLISHED LOW MDM 20-29 MIN Reason for Visit and Comments: Follow-up [228449] - 6 MONTH FOLLOW UP Normal [facility] Family Medicine Office/Clini c Noteon 03-13-2023 Family Medicine Office/Clinic Note Chief Complaint follow up chronic care, had medicare wellness today HPI Staff Patient here for 2 month follow up multiple medical problems Had medicare wellness this afternoon w/ Puneet Recently referred to [facility] oncology Puneet noted BP 100/50 and he [...] oncologist tomorrow, 03/11/2023, at 1:00 PM at [facility]. The patient needs glucose test strips. [...] with voice recognition artificial intelligence software, specifically Powered Outcomes, Vouchercloud and or [employer]OnDemand. Substitutions may have occurred due to the inherent limitations of voice recognition and artificial intelligence software. ATTESTATION: Documentation services were performed after patient or guardian consented to allow [employer] to record this visit. VIRGEN beauty specialist and provider reviewed before signing. VIRGEN: [...] Flash 2 Glucose Monitoring 14 Day System (Henefer), See Instructions glipiZIDE 5 mg ER Tab, [...] cap(s), Oral, Daily, 1 refills Potassium Chloride (Geh-Wkjp-Kzf M20) 20 mEq oral tablet, extended release, 20 mEq= 1 tab(s), Oral, BID, 1 refills spironolact (more content not included)... Normal [facility] Comment on above: Result Comment: Elec [...] for Ebola (Reference for CDC) : N/A Vangie JONA Meghna L - 03/10/2023 14:47 EDT Summary Weight Measured [...] had medicare wellness today Preferred Lab : [facility] Preferred Rad : [facility] Patient Counseled : Nutrition, Physical activity [...] with keep (more content not included)... Normal [facility] Comment on above: Result Comment: Elec tronically Signed By: Mick SEN, Álvaro Davies\.br\Date and Time Signed: 03/13/23 12:59 EDT\.br\Electronically Co-Signed By: Puneet Mcelryo\.br\Date and Time Co-Signed: 03/10/23 15:23 EDT Consenton 03-12-2023 Consent [id number]#[id number] D:127 Normal [facility] Physician Orderon 03-12-2023 Physician Order [id number]#1.00C D:127 Normal [facility] .Manual Abson 03-11-2023 Basophils/Leukocyte s Manual cnt (Bld) [Pure # fraction] 0.0 E9/L Normal 0.0-0.2 [facility] Comment on above: Performed By: #### 3 5917597, 2007665, 9199259, 6360396, 52031469 #### [facility] [address] [place] [address] Eosinophils/Leukocy jorge Manual cnt (Bld) [Pure # fraction] 0.1 E9/L Normal 0.0-0.5 [facility] Comment on above: Performed By: #### 3 2163547, 9209724, 9250212, 2740743, 67327592 #### [facility] [address] [place] [address] Lymphocytes/Leukocy jorge Manual cnt (Bld) [Pure # fraction] 1.4 E9/L Normal 1.0-4.0 [facility] Comment on above: Performed By: #### 3 0168716, 7355944, 6594800, 4032282, 81755422 #### [facility] [address] [place] [address] Monocytes/Leukocyte s Manual cnt (Bld) [Pure # fraction] 0.3 E9/L Normal 0.2-1.0 [facility] Comment on above: Performed By: #### 3 4040232, 4064259, 0825222, 3846118, 46668190 #### [facility] [address] [place] [address] Neutrophils/Leukocy jorge Auto (Bld) [Pure # fraction] 3.4 E9/L Normal 2.0-7.5 [facility] Comment on above: Performed By: #### 3 9981976, 7940135, 7342270, 1726185, 25876277 #### [facility] [address] [place] [address] BB Draw & Holdon 03-11-2023 BB D&H Sample drawn for Blo od Ba Normal [facility] Comment on above: Performed By: #### 3 0642692, 0573502, 0893038, 1773469, 16624154 #### [facility] [address] [place] [address] CBC w/ Auto Diffon Erythrocyte distribution width (RBC) [Ratio] 30.8 % High 10.9-14.2 [facility] Comment on above: Performed By: #### 3 1759356, 3161618, 3867177, 0763093, 59481654 #### [facility] [address] [place] [address] Hematocrit (Bld) [Volume fraction] 19.7 % Low 37.7-49.0 [facility] Comment on above: Performed By: #### 3 2037849, 7333480, 0039896, 5396851, 47808644 #### [facility] [address] [place] [address] Hemoglobin (Bld) [Mass/Vol] 6.7 g/dL Abnormal 13.5-17.5 [facility] Comment on above: Result Comment: Resu lts Called To Angle Mendoza/ ONC By GISELA And Read Back For Confirmation On 03/11/2023 17:00:17 EDT Results Verified By Repeat Analysis Performed By: #### 3 8972818, 4928924, 1011415, 5766336, 70181402 #### [facility] [address] [place] [address] MCH (RBC) [Entitic mass] 35.7 pg High 27.0-34.0 [facility] Comment on above: Performed By: #### 3 8180589, 0873887, 9206845, 1266126, 21108846 #### [facility] [address] [place] [address] MCHC (RBC) [Mass/Vol] 33.9 g/dL Normal 31.4-36.0 [facility] Comment on above: Performed By: #### 3 6612032, 9876716, 6907091, 8951760, 26526027 #### [facility] [address] [place] [address] MCV (RBC) [Entitic vol] 105.3 fL High 80.0-100.0 [facility] Comment on above: Performed By: #### 3 8909726, 3527265, 9021838, 0752805, 37253720 #### [facility] [address] [place] [address] Platelet mean volume (Bld) [Entitic vol] 12.4 fL High 6.4-10.8 [facility] Comment on above: Performed By: #### 3 0989207, 5629866, 7003221, 5319974, 48444130 #### [facility] [address] [place] [address] Platelets (Bld) [#/Vol] 93.0 E9/L Low 150.0-500.0 [facility] Comment on above: Performed By: #### 3 8920253, 4279396, 8508048, 6173853, 66096357 #### [facility] [address] [place] [address] RBC (Bld) [#/Vol] 1.9 E12/L Low 4.3-5.9 [facility] Comment on above: Performed By: #### 3 5842553, 5156400, 7246774, 6918589, 56422130 #### [facility] [address] [place] [address] WBC corrected for nucl RBC Auto (Bld) [#/Vol] 5.8 E9/L Normal 4.0-11.0 [facility] Comment on above: Performed By: #### 3 6268446, 7287449, 3009274, 2276340, 72679413 #### [facility] [address] [place] [address] CMPon 03-11-2023 Albumin [Mass/Vol] 3.9 g/dL Normal 3.3-5.0 [facility] Comment on above: Performed By: #### 2 262630368, 3040003044, 8892504, 6955320788, 9093633701, 111949871, 2430293, 0537473206, 9275365, 9130009, 5746488, 7760523311, 1077466, 6119411, 7751748, 82414999, 4128372, 310306503, 1275813741, 17529618, 7863932, 8643797, 1204610902 ####[facility] [address] [place] [address] Albumin/Globulin (S) [Mass conc ratio] 1.1 Normal 1.1-2.2 [facility] Comment on above: Performed By: #### 2 373626734, 6420507910, 7750664, 5409735016, 6061366416, 608060010, 7075010, 5364586489, 6050224, 4287483, 4827403, 7849289732, 6477405, 1952795, 9004834, 78966682, 8561684, 909286447, 5845611404, 99673904, 8890125, 6341429, 1725169634 ####[address] [place] [address] ALP [Catalytic activity/Vol] 72 Int._Unit/L Normal 21-98 [facility] Comment on above: Performed By: #### 2 441799392, 8518599582, 5430514, 5455860188, 3113291115, 615058867, 1623581, 6480498125, 9594883, 3637810, 5569213, 1827577681, 2851109, 4006178, 0629749, 31753109, 0103406, 357524114, 0835244605, 18695023, 9267149, 7188388, 1918392785 ####[address] [address] ALT No additional P-5'-P [Catalytic activity/Vol] 96 Int._Unit/L High 6-46 [facility] Comment on above: Performed By: #### 2 730756412, 3731029086, 2217260, 7577700466, 2021476297, 845727729, 7121004, 1663778516, 4575008, 7992918, 5179959, 5078060166, 0676934, 2472297, 2473559, 37949352, 1826959, 307505038, 9681344262, 36524925, 0612681, 9473045, 6334976018 ####[address] [address] Anion gap [Moles/Vol] 13 mmol/L Normal 6-16 [facility] Comment on above: Performed By: #### 2 026654376, 5350104649, 5678964, 6020413980, 9754929464, 376056904, 8711686, 2912505710, 9683823, 2553088, 1143788, 7117229238, 3681110, 5078493, 6020642, 25917289, 5323090, 975078078, 7275689368, 18169486, 7732376, 6398489, 6576177863 ####[address] [place] [address] AST [Catalytic activity/Vol] 39 Int._Unit/L Normal 5-43 [facility] Comment on above: Performed By: #### 2 815532089, 4027294281, 6790819, 6909054969, 5800063853, 872577718, 5234312, 1555040036, 2429349, 6107875, 7854899, 5907898058, 0408510, 5067477, 6162840, 60380528, 8437584, 894826984, 9912678169, 63144889, 6913944, 4071764, 4927150417 ####[address] [address] Bilirubin [Mass/Vol] 0.7 mg/dL Normal 0.0-1.1 [facility] Comment on above: Performed By: #### 2 363635502, 3872778581, 7271969, 5214409530, 7108402004, 639680753, 0344407, 7024961233, 0061800, 0363056, 8739504, 8782971660, 7788626, 6014292, 1763867, 58090251, 3779413, 508259421, 9848827837, 93104920, 8756780, 4402590, 0168722728 ####[address] [place] [address] Calcium [Mass/Vol] 9.5 mg/dL Normal 8.9-11.1 [facility] Comment on above: Performed By: #### 2 985911253, 0329099976, 9998559, 3735426767, 4645568077, 815835280, 9512845, 6124923879, 5315950, 1703277, 4756282, 1694381595, 4395178, 7939205, 3705451, 97616478, 4999019, 698857362, 8783334875, 37010711, 0336035, 9586753, 7389365201 ####[address] [place] [address] Chloride [Moles/Vol] 102 mmol/L Normal 101-111 [facility] Comment on above: Performed By: #### 2 514847907, 5951900563, 0274024, 9210527856, 0775224416, 099648392, 9951381, 3771356535, 0786995, 0452744, 1879348, 6452202653, 2899049, 5387611, 6914316, 71848394, 7598822, 974820609, 7072306702, 08118541, 0518190, 7777751, 7130056012 ####[address] [place] [address] CO2 [Moles/Vol] 32 mmol/L High 21-31 [facility] Comment on above: Performed By: #### 2 693693852, 8240447330, 7841681, 3128575507, 9765408244, 411540582, 8903243, 2946152730, 8721428, 1416262, 6486558, 4422679775, 6999775, 9764161, 7261818, 27343390, 2997512, 275044574, 9249177055, 70478713, 3434357, 0160683, 1901266404 ####[address] [place] [address] Creatinine [Mass/Vol] 1.9 mg/dL High 0.5-1.3 [facility] Comment on above: Performed By: #### 2 964886846, 5132789973, 0139323, 5618979400, 8849591179, 545827456, 5503534, 4402314810, 3993822, 3201343, 1603848, 1132565193, 9560166, 0316892, 1458887, 40732881, 1272294, 510484630, 7416161504, 25340421, 8148903, 1834035, 5426632484 ####[facility] [address] [place] [address] Globulin (S) [Mass/Vol] 3.5 g/dL Normal 1.4-4.0 [facility] Comment on above: Performed By: #### 2 773510440, 4661271589, 9681003, 2881311593, 1075096577, 130957930, 4260143, 3543926133, 2420539, 3617046, 4859330, 6058119519, 7449550, 4993162, 1957312, 74195852, 2992581, 953808843, 3317702663, 68434266, 9100025, 2991077, 8900515633 ####[facility] [address] [place] [address] Glucose [Mass/Vol] 181 mg/dL Normal 55-199 [facility] Comment on above: Result Comment: If t his glucose result represents a fasting glucose, interpretation should refer to the following reference range: 55-99 mg/dL Performed By: #### 2 699908429, 8556423033, 8000248, 0209857502, 9723673630, 415988813, 7981967, 1916808611, 9908026, 0878709, 2912118, 5451920348, 7387341, 1792152, 8910644, 07422460, 8966042, 824997897, 1332674282, 73433215, 2541179, 2383484, 4898540418 ####[facility] [address] [place] [address] Potassium [Moles/Vol] 4.7 mmol/L Normal 3.5-5.3 [facility] Comment on above: Performed By: #### 2 232236866, 5904793629, 2016322, 4241815059, 5708369541, 061380079, 9493238, 4620072305, 4392869, 5583427, 2004891, 1337306743, 7300200, 0891836, 4821341, 91959882, 9196561, 909469794, 8287422445, 41116062, 5490035, 9860349, 1148631849 ####[address] [place] [address] Protein [Mass/Vol] 7.4 g/dL Normal 6.0-7.8 [facility] Comment on above: Performed By: #### 2 600051551, 8586945964, 2645754, 0799960655, 2472385519, 099838586, 3026582, 2064946551, 6770500, 4672515, 9255184, 0053986331, 8634573, 1716651, 0756374, 70893857, 8941318, 315484747, 3163190272, 81941149, 7298174, 5684955, 2075135548 ####[address] [place] [address] Sodium [Moles/Vol] 142 mmol/L Normal 135-145 [facility] Comment on above: Performed By: #### 2 428820497, 8431574182, 2365474, 5718180233, 0752165973, 588492498, 0351114, 3422297446, 7268006, 8994863, 7424392, 8087612336, 2897835, 3067662, 6019179, 64557936, 7527036, 642582733, 5923622144, 67681784, 0600820, 7543862, 5283345045 ####[address] [place] [address] Urea nitrogen [Mass/Vol] 60 mg/dL High 5-21 [facility] Comment on above: Performed By: #### 2 715436293, 3584502554, 6081337, 1184541987, 2656616211, 360901187, 4293220, 9308758058, 4788676, 2369248, 6979413, 2090827702, 8810442, 5342181, 8668802, 33906194, 4753057, 704679298, 1099857125, 30716968, 3478236, 9612996, 2302547540 ####[facility] [address] [place] [address] Urea nitrogen/Creatinine [Mass ratio] 32 No Units High 10-20 [facility] Comment on above: Performed By: #### 2 689315629, 4615263403, 0385781, 1997842863, 8485745564, 456622439, 1835486, 9240243668, 7800848, 2623755, 6823885, 0740279779, 8934111, 8379282, 9595051, 69386732, 3868038, 110853377, 1904468816, 60539845, 2506556, 7244026, 4415255906 ####[facility] [address] [place] [address] Consent for Treatmenton 02-25 Consent for Treatment [id number]#1.00C D:127 Normal [facility] Consent for Treatment [id number]#1.00C D:127 Normal [facility] Ferritinon 03-11-2023 Ferritin [Mass/Vol] 3583 ng/mL High 24-336 [facility] Comment on above: Result Comment: NORM ALS MEN <30 YRS 16-132 ng/mL MEN >30 YRS 8-338 ng/mL WOMEN (PREMEN) 6-104 ng/mL WOMEN (POSTMEN) 12-210 ng/mL Performed By: #### 2 080012980, 2918460478, 7183833, 9790993909, 0459077312, 698195920, 1834425, 8398389094, 4274491, 4918315, 6266243, 7557181177, 8220510, 5385587, 1656632, 14738980, 7419718, 059253592, 3700276858, 31673717, 3293336, 4624098, 9320878963 ####[facility] [address] [place] [address] Folateon 03-11-2023 Folate [Mass/Vol] 11.6 ng/mL Normal >=6.7 [facility] Comment on above: Performed By: #### 2 604238158, 2808880500, 9091157, 7686725041, 9823406621, 388188095, 8990549, 1695384692, 4086221, 8712616, 5092400, 1718529295, 3145177, 9767981, 7245835, 69281880, 1133388, 415756875, 4871968733, 16236384, 9996752, 5593066, 5918845152 ####[facility] [address] [place] [address] Ironon 03-11-2023 Iron [Mass/Vol] 267 microgram/dL High 35-153 [facility] Comment on above: Performed By: #### 2 118885449, 5023371630, 3859683, 0914903930, 7368736023, 593134873, 8377678, 1127803350, 2096394, 9747973, 6377185, 3352377257, 6554329, 8380186, 0340390, 29965331, 2050905, 523875462, 0781237252, 88634058, 2711012, 7864074, 2256783261 ####[address] [place] [address] Iron Saturationon 03-11-2023 Iron binding capacity [Mass/Vol] 294 microgram/dL Normal 250-400 [facility] Comment on above: Performed By: #### 2 106402856, 0653112945, 2062648, 6725781131, 8036730713, 669723286, 5004764, 4376893758, 2231025, 5316897, 3330555, 4754481897, 3595053, 6428260, 6505480, 07279671, 4472661, 270272790, 7801227338, 35947374, 0202895, 0783594, 4815279206 ####[facility] [address] [place] [address] Iron saturation [Mass fraction] 91 % High 20-50 [facility] Comment on above: Performed By: #### 2 034916740, 0348617004, 7558053, 5708873908, 7421185057, 886738231, 5649765, 7436868278, 3431837, 8126214, 0844868, 3877740849, 8186007, 6942423, 7234566, 69772184, 9733593, 804535509, 4867092190, 73557716, 2722182, 7770174, 8901384029 ####[facility] [address] [place] [address] LDHon 03-11-2023 LDH [Catalytic activity/Vol] 211 Int._Unit/L Normal 93-218 [facility] Comment on above: Performed By: #### 2 372617658, 0860612801, 7116630, 4080039630, 0298121461, 184651124, 1352108, 8727829185, 2740769, 8613564, 7217097, 1823267437, 4380501, 9158020, 2790092, 27439934, 5898424, 794737020, 7742966900, 87896607, 1177976, 4805675, 4185573277 ####[facility] [address] [place] [address] Manual Diffon 03-11-2023 Anisocytosis Ql (Bld) Present Normal [facility] Comment on above: Order Comment: Order Added by Discern Expert. Performed By: #### 3 5713978, 5980520, 4858076, 5703398, 95859759 #### [facility] [address] [place] [address] Band form neutrophils/100 WBC (Bld) 9 % Normal 0-10 [facility] Comment on above: Order Comment: Order Added by Discern Expert. Performed By: #### 3 2692371, 8442768, 2343359, 2740295, 12659370 #### [facility] [address] [place] [address] Basophils/100 WBC (Bld) 0 % Normal 0-2 [facility] Comment on above: Order Comment: Order Added by Discern Expert. Performed By: #### 3 6666052, 8524924, 1331902, 7606861, 40130376 #### [facility] [address] [place] [address] Eosinophils/100 WBC (Bld) 1 % Normal 0-8 [facility] Comment on above: Order Comment: Order Added by Discern Expert. Performed By: #### 3 0237860, 6612162, 5279160, 6906948, 96492991 #### [facility] [address] [place] [address] Hypochromia Auto Ql (Bld) Present Normal [facility] Comment on above: Order Comment: Order Added by Discern Expert. Performed By: #### 3 3032945, 2124499, 5025365, 9280787, 61229003 #### [facility] [address] [place] [address] Lymphocytes/100 WBC (Bld) 25 % Normal 14-50 [facility] Comment on above: Order Comment: Order Added by Discern Expert. Performed By: #### 3 0000334, 4979256, 7620031, 6279917, 57318651 #### [facility] [address] [place] [address] Macrocytes Ql (Bld) Present Normal [facility] Comment on above: Order Comment: Order Added by Discern Expert. Performed By: #### 3 2402937, 5086110, 0161800, 3637982, 76708769 #### [facility] [address] [place] [address] Metamyelocytes/Leuk ocytes Manual cnt (Bld) [Pure # fraction] 2 % High <=0 [facility] Comment on above: Order Comment: Order Added by Discern Expert. Performed By: #### 3 7664656, 1185762, 1834793, 0361100, 65716053 #### [facility] [address] [place] [address] Monocytes/100 WBC (Bld) 6 % Normal 4-14 [facility] Comment on above: Order Comment: Order Added by Discern Expert. Performed By: #### 3 9174682, 3448710, 5994851, 4763480, 60553777 #### [facility] [address] [place] [address] Morphology Edmundo (Bld) [Interp] See Morphology Normal [facility] Comment on above: Order Comment: Order Added by Discern Expert. Result Comment: Resu lts are consistent with previous path review performed on 01-06-23. Reviewed by GISELA. Performed By: #### 3 4970918, 5731444, 9792302, 7296406, 35246183 #### [facility] [address] [place] [address] Myelocytes/100 WBC (Bld) 7 % High <=0 [facility] Comment on above: Order Comment: Order Added by Discern Expert. Performed By: #### 3 2068168, 3252597, 7214791, 5017282, 03003225 #### [facility] [address] [place] [address] Platelets Large LM Ql (Bld) Present Normal [facility] Comment on above: Order Comment: Order Added by Discern Expert. Performed By: #### 3 3753011, 4517710, 6048364, 7632289, 91859237 #### [facility] [address] [place] [address] Segmented neutrophils/100 WBC (Bld) 50 % Normal 36-75 [facility] Comment on above: Order Comment: Order Added by Discern Expert. Performed By: #### 3 6787394, 0853212, 2548519, 4655957, 14276961 #### [facility] [address] [place] [address] Variant lymphocytes LM Ql (Bld) 0 % Normal <=0 [facility] Comment on above: Order Comment: Order Added by Discern Expert. 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 I accompanied Dr. Lu in room. Medical history reviewed. Patient was diagnosed with MDS and received CC/Roman Vidaza. Patient had BMB 08/2021. Patient was signed on with [facility] but then quit [facility]. Patient is on home/portable oxygen. Patient with pancytopenia. Patient's powerbuilder is Dr. Faria/[facility] [phone]. Treatment Plan: labs to be done today, Appt with Dr. Mercer, weekly CBC & BB hold to be done at [facility], every 3 week CMP,LDH to be done at [facility], transfusion standing order faxed to [facility] Follow-Up Appointment Info/Referrals: 6 weeks Resources Offered: Contact information provided to patient. Patient is stage 4 kidney disease and ejection fraction of 20% Normal [facility] Comment on above: Result Comment: Elec [...] for any further chemotherapy or treatment by [facility] hematology oncology here in [facility]. Patient and his Lissette wanted second opinion [...] that. Unfortunately he suffered from an acute IL on 11/23/2021 and developed another GI bleed. He was transfused several RBCs and managed to get his catheterization. 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 He was requiring packed RBC transfusion every 3 to 4 weeks and eventually was deemed not a responsive to 5 days and was seen by Dr. Esposito at [facility]. He was getting blood transfusion for hemoglobin [...] IM injection every 3 weeks at the [facility]. Treatment to date: 1. Intermittent IV iron [...] colchicine 0.6 (more content not included)... Normal [facility] Patient Educationon 03-11-20 Patient Education Normal [facility] Physician Orderon 03-11-2023 Physician Order [id number]#1.00 CD:127 Normal [facility] Physician Order [id number]#1.00 CD:127 Normal [facility] Physician Order [id number]#1.00 CD:127 Normal [facility] Retic Counton 03-11-2023 Reticulocytes/100 RBC (Bld) 0.7 % Normal 0.5-1.5 [facility] Comment on above: Result Comment: This Reticulocyte Count Has Been Corrected For Anemia Performed By: #### 3 9943947, 4696867, 1811066, 2182139, 93262150 #### [facility] [address] [place] [address] Screenson 03-11-2023 Screens [id number]#1.00C D:127 Normal [facility] Transferrinon 03-11-2023 Transferrin [Mass/Vol] 210 mg/dL Normal 200-370 [facility] Comment on above: Performed By: #### 2 125371626, 6140137869, 0450551, 7311641458, 5584576191, 507773429, 9653541, 8144818998, 8022610, 1581376, 8541964, 5977363897, 5298329, 5488784, 2265986, 65469985, 8790332, 628641477, 4368730594, 45384386, 9614419, 3845730, 4768239343 ####[facility] [address] [place] [address] UA With Cult Reflexon 2022 Bilirubin Ql (U) Negative Normal Negative [facility] Comment on above: Order Comment: micro hematuria Performed By: #### 1 5395744 ####[facility] [address] [place] [address] Clarity (U) CLEAR Normal Clear [facility] Comment on above: Order Comment: micro hematuria Performed By: #### 1 2510818 ####[facility] [address] [place] [address] Color (U) STRAW Abnormal Yellow [facility] Comment on above: Order Comment: micro hematuria Performed By: #### 1 9882270 ####[facility] [address] [place] [address] Epithelial cells.squamous LM.HPF (Urine sed) [#/Area] 0-2 Normal 0-2 [facility] Comment on above: Order Comment: micro hematuria Performed By: #### 1 3492776 ####[facility] [address] [place] [address] Glucose Test strip (U) [Mass/Vol] 2+ Abnormal Negative [facility] Comment on above: Order Comment: micro hematuria Performed By: #### 1 5039600 ####[facility] [address] [place] [address] Hemoglobin Ql (U) Negative Normal Negative [facility] Comment on above: Order Comment: micro hematuria Performed By: #### 1 6556050 ####[facility] [address] [place] [address] Ketones (U) [Mass/Vol] Negative Normal Negative [facility] Comment on above: Order Comment: micro hematuria Performed By: #### 1 3606034 ####[facility] [address] [place] [address] [place].plasma/Lith ium.RBC (Bld) [Mass ratio] 0-3 Normal 0-3 [facility] Comment on above: Order Comment: micro hematuria Performed By: #### 1 9268168 ####[facility] [address] [place] [address] Nitrite Ql (U) Negative Normal Negative [facility] Comment on above: Order Comment: micro hematuria Performed By: #### 1 0390890 ####[facility] [address] [place] [address] pH (U) 6.0 [pH] Invalid Interpretation Code 5.0-9.0 [facility] Comment on above: Order Comment: micro hematuria Performed By: #### 1 1618270 ####[facility] [address] [place] [address] Protein (U) [Mass/Vol] Negative Normal Negative [facility] Comment on above: Order Comment: micro hematuria Performed By: #### 1 5335337 ####[place] [address] Specific gravity (U) [Rel density] <=1.005 Invalid Interpretation Code 1.005-1.030 [facility] Comment on above: Order Comment: micro hematuria Performed By: #### 1 7769538 ####[address] [address] Type of Urine collection method Random Urine Normal [facility] Comment on above: Order Comment: micro hematuria Performed By: #### 1 5369761 ####[address] [address] Urobilinogen Qn (U) 0.2 {Dav'U}/dL Normal 0.0-1.0 [facility] Comment on above: Order Comment: micro hematuria Performed By: #### 1 3869137 ####[address] [address] WBC Auto Ql (U) Negative Normal Negative [facility] Comment on above: Order Comment: micro hematuria Performed By: #### 1 9914255 ####[address] [address] WBC LM.HPF (Urine sed) [#/Area] 0-5 Normal 0-5 [facility] Comment on above: Order Comment: micro hematuria Performed By: #### 1 6381865 ####[address] [address] Vit B12on 03-11-2023 Cobalamin (Vitamin B12) [Mass/Vol] 457 pg/mL Normal 50-1500 [facility] Comment on above: Performed By: #### 2 894125030, 2179696208, 3192240, 2289955029, 0128638336, 494640120, 9181528, 8205481154, 2942663, 4720895, 5214167, 9894323917, 4754684, 2105401, 9712633, 73760992, 3877990, 020751174, 0977890615, 25575505, 3220761, 8428358, 6278175478 ####[address] [place] [address] eGFRon 03-11-2023 GFR/1.73 sq M.predicted among non-blacks MDRD (S/P/Bld) [Vol rate/Area] 34 mL/min/1.73 m2 Low >=59 [facility] Comment on above: Order Comment: Order added by Discern Expert. Result Comment: Towel Folder charlene kidney disease could be indicated at eGFR's of less than 60 mL/min/1.73m2. Kidney failure is indicated at less than 15 mL/min/1.73m2. Performed By: #### 2 008457662, 4227172470, 4868206, 1322866063, 5312339455, 051740334, 9070326, 3906708398, 3636016, 3069268, 7318414, 9118678772, 5426221, 3281011, 6135139, 66193904, 8791203, 153782782, 4988223794, 72520802, 6022166, 4518963, 3286594780 ####[facility] [address] [place] [address] Ambulatory Visit Summaryon 0 03-10-2023 Ambulatory Visit [...] Flash 2 Glucose Monitoring 14 Day System (Henefer)) Misc Prescription (Misc DME Prescription) aspirin (aspirin [...] 40 mg Cap-DR) potassium chloride (Potassium Chloride (Sma-Jrjz-Onw M20) 20 mEq oral tablet, extended release) [...] PM EDT With: Álvaro Barton MD Where: [facility] Ambulatory Visit Summary SANDIP BROUSSARD :1940 [...] Barton MD This Is Your Medications List [facility] Prescription (Freestyle Carmen 2 Flash Glucose Monitoring 14 Day System (Sensor)) [facility] Prescription (Freestyle Carmen Flash 2 Glucose Monitoring 14 Day System (Henefer)) [facility] Prescription ([facility] DME Prescription) aspirin (aspirin 81 mg Oral [...] 40 mg Cap-DR) potassium chloride (Potassium Chloride (Bnc-Dgir-Exb M20) 20 mEq oral tablet, extended release) [...] Where: Oncology Friday 2:40 PM EDT With: Mick SEN, Álvaro Davies Where: [facility] Patient Educationon 03-10-20 Patient Education Cardiovascular [...] these instructions at home: Medicines ? Take xkta-sdy-zoltskg and prescription medicines only as told by [...] can dri (more content not included)... Normal [facility] Family Medicine Office/Clini c Noteon 02-17-2023 Family Medicine Office/Clinic Note Chief Complaint ER follow up HPI Staff ER follow up ER followup: Hospital: [facility] Visit date: 02/04/23: pt got 4units of [...] with voice recognition artificial intelligence software, specifically [employer], [employer] and or [employer]. Substitutions may have occurred due to the inherent limitations of voice recognition and artificial intelligence software. ATTESTATION: Documentation services were performed after patient or guardian consented to allow [employer] to record this visit. VIRGEN beauty specialist and provider reviewed before signing. VIRGEN: [...] Tab, 2.5 (more content not included)... Normal [facility] Comment on above: Result Comment: Elec tronically Signed By: Álvaro Barton MD\.br\Date and Time Signed: 02/17/23 12:06 EDT\.br\Electronically Co-Signed By: Maria Ines Puente\Date and Time Co-Signed: 02/13/23 18:35 EDT Physician Referralon 023 Physician Referral [id number] CD:127 Normal [facility] Outside [facility] Correspo ndenceon 02-07-2023 Outside [facility] Correspondence [id number] D:127 Normal [facility] Urinalysison 01-11-2023 Bilirubin Ql (U) Negative Normal Negative [facility] Comment on above: Performed By: #### 1 [id number], 33290851 ####[facility] [address] [place] [address] Clarity (U) CLEAR Normal Clear [facility] Comment on above: Performed By: #### 1 9585773, 61873328 ####[facility] [address] [place] [address] Color (U) YELLOW Normal Yellow [facility] Comment on above: Performed By: #### 1 2349738, 92030837 ####[facility] [address] [place] [address] Epithelial cells.squamous LM.HPF (Urine sed) [#/Area] 0-2 Normal 0-2 [facility] Comment on above: Performed By: #### 1 2229393, 23390316 ####[facility] [address] [place] [address] Glucose Test strip (U) [Mass/Vol] 3+ Abnormal Negative [facility] Comment on above: Performed By: #### 1 9037951, 40713015 ####[facility] [address] [place] [address] Hemoglobin Ql (U) Negative Normal Negative [facility] Comment on above: Performed By: #### 1 4085368, 43598448 ####[facility] [address] [place] [address] Ketones (U) [Mass/Vol] Negative Normal Negative [facility] Comment on above: Performed By: #### 1 0522253, 57692006 ####[facility] [address] [place] [address] [place].plasma/Lith ium.RBC (Bld) [Mass ratio] 0-3 Normal 0-3 [facility] Comment on above: Performed By: #### 1 8555402, 37903474 ####[address] [address] Nitrite Ql (U) Negative Normal Negative [facility] Comment on above: Performed By: #### 1 8935400, 51837691 ####[address] [place] [address] pH (U) 6.5 [pH] Invalid Interpretation Code 5.0-9.0 [facility] Comment on above: Performed By: #### 1 4135961, 67494680 ####[address] [address] Protein (U) [Mass/Vol] Negative Normal Negative [facility] Comment on above: Performed By: #### 1 3064981, 14985875 ####[address] [address] Specific gravity (U) [Rel density] 1.010 Invalid Interpretation Code 1.005-1.030 [facility] Comment on above: Performed By: #### 1 1522395, 14725914 ####[address] [address] Type of Urine collection method Clean Catch Normal [facility] Comment on above: Performed By: #### 1 8543602, 85562664 ####[address] [place] [address] Urobilinogen Qn (U) 0.2 {Dav'U}/dL Normal 0.0-1.0 [facility] Comment on above: Performed By: #### 1 9040477, 93896132 ####[address] [address] WBC Auto Ql (U) Negative Normal Negative [facility] Comment on above: Performed By: #### 1 7877245, 37461292 ####[facility] [address] [place] [address] WBC LM.HPF (Urine sed) [#/Area] 0-5 Normal 0-5 [facility] Comment on above: Performed By: #### 1 4519615, 40261142 ####[facility] [address] [place] [address] CHEMISTRYOrdered By: José Luis Cat on 01-10-2023 Albumin DL <= 20 mg/L (U) [Mass/Vol] microgram/mL Normal 0.0 - 19.0 mcg/mL [facility] Remiso Albumin Elph (U) [Mass fraction] 6.1 mg/dL Invalid Interpretation Code [facility] Remisol Creatinine (U) [Mass/Vol] 47.9 mg/dL Invalid Interpretation Code [facility] Remisol U Prot/Creat Ratio 127.30 mg/gm Cr Normal 0.00 - 200.00 mg/gm Cr [facility] Remisol Nurse Consultation Noteon Nurse Consultation Note [...] mg= 1 cap(s), Oral, Daily Potassium Chloride (Ehx-Sdsi-Tla M20) 20 mEq oral tablet, extended release, [...] influenza virus vaccine, inactivated 05/23/2013 Recorded Normal [facility] U Microalbon 01-10-2023 Albumin DL <= 20 mg/L (U) [Mass/Vol] mg/dL Normal 0.0-19.0 [facility] Comment on above: Performed By: #### 1 2260411, 51300158 ####[facility] [address] [place] [address] U Protein/Creat Ratioon 12-26 Albumin Elph (U) [Mass fraction] 6.1 mg/dL Invalid Interpretation Code [facility] Comment on above: Result Comment: The reference range and other method performance specifications have not been established for this test; results should be integrated into the clinical context for interpretation. Performed By: #### 1 [id number] ####[address] [place] [address] Creatinine (U) [Mass/Vol] 47.9 mg/dL Invalid Interpretation Code [facility] Comment on above: Result Comment: The reference range and other method performance specifications have not been established for this test; results should be integrated into the clinical context for interpretation. Performed By: #### 1 [id number] ####[address] [place] [address] U Prot/Creat Ratio 127.30 mg/gm Cr Normal .00-200.00 F [facility] Comment on above: Performed By: #### 1 [id number] ####[address] [address] Lab Reportson 01-08-2023 Lab Reports [id number] :127 Normal [facility] Lab Reports [id number]#1.00C D:127 Normal [facility] Lab Reports [id number] :127 Normal [facility] Formson 01-07-2023 Forms [id number]#1.00C D:127 Normal [facility] Path. 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 No increase of schistocytes seen. Invalid Interpretation Code [facility] Comment on above: Order Comment: Order Added by Discern Expert. Performed By: #### 2 732056, 5544008, 77459841, 1522468, 78317896, 41166381, 627781854 ####[facility] [address] [place] [address] Path. 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 No increase of schistocytes seen. D61.818 CPT 61863 Invalid Interpretation Code [facility] Comment on above: Other Comment: Order Added by Discern Expert. Reminderson 01-07-2023 Reminders - From: Brittany Hull DO To: Álvaro Barton MD; Sent: 01/07/2023 12:25:00 EDT Show up: 01/07/2023 12:24:00 EDT Subject: Ambulatory Reminder Due Date/Time: 01/08/2023 12:23:00 EDT just wanted you be aware of pancytopenia Results: Date Result Type Result Name 01/07/2023 9:00 Document - DOC Path Review Normal [facility] Reminders - From: Brittany Hull DO [...] MCHC 32.3 gm/dL (31.4 - 36.0) 01/06/2023 12:01 RDW ((H)) 31.5 % (10.9 - 14.2) 01/06/2023 12: Platelet ((L)) 89.0 E9/L (150.0 - 500.0) 01/06/2023 12: MPV ((H)) 13.2 fL (6.4 - 10.8) 01/06/2023 12:01 Segs Man 50 % (36 - 75) [...] 0.8 E9/L (1.0 - 4.0) 01/06/2023 12: Lawrence Abs Man 0.2 E9/L (0.2 - 1.0) 01/06/2023 12: Eos Abs Man 0.0 E9/L (0.0 - 0.5) 01/06/2023 12: Basophil Abs Man 0.0 E9/L (0.0 - 0.2) 01/06/2023 12: RBC Morph See Morphology 01/06/2023 12: Anisocytosis Present 01/06/2023 12: Macrocyte Present 01/06/2023 12: Hypochromasia Present 01/06/2023 12: Ovalocytes Present 01/06/2023 12: Large Plt Present 01/06/2023 12: Glucose Lvl 192 mg/dL (55 - 199) 01/06/2023 12: BUN ((H)) 41 mg/dL (5 - 21) [...] ((H)) 8.1 % ( - <=5.9) Normal [facility] .Manual Abson 01-06-2023 Basophils/Leukocyte s Manual cnt (Bld) [Pure # fraction] 0.0 E9/L Normal 0.0-0.2 [facility] Comment on above: Performed By: #### 2 337902, 6617049, 09708772, 0898320, 22134318, 39651255, 994459772 ####[address] [place] [address] Eosinophils/Leukocy jorge Manual cnt (Bld) [Pure # fraction] 0.0 E9/L Normal 0.0-0.5 [facility] Comment on above: Performed By: #### 2 128039, 4832766, 91730432, 1991984, 25198469, 47569610, 374552971 ####[address] [place] [address] Lymphocytes/Leukocy ojrge Manual cnt (Bld) [Pure # fraction] 0.8 E9/L Low 1.0-4.0 [facility] Comment on above: Performed By: #### 2 989305, 6335574, 43946950, 7885130, 40398583, 72050773, 410368201 ####[address] [place] [address] Monocytes/Leukocyte s Manual cnt (Bld) [Pure # fraction] 0.2 E9/L Normal 0.2-1.0 [facility] Comment on above: Performed By: #### 2 076397, 6894756, 09020317, 6583767, 85314638, 24638616, 757809970 ####[address] [place] [address] Neutrophils/Leukocy jorge Auto (Bld) [Pure # fraction] 1.4 E9/L Low 2.0-7.5 [facility] Comment on above: Performed By: #### 2 440978, 7941643, 14494014, 6648181, 42139059, 24663066, 510242577 ####[address] [place] [address] Ambulatory Visit Summaryon 0 01-06-2023 Ambulatory Visit Summary SANDIP BROUSSARD:1940 Visit Date:01/06/2023 Ambulatory Visit Instructions Your Diagnosis [...] 40 mg Cap-DR) potassium chloride (Potassium Chloride (Mki-Pfyx-Lbe M20) 20 mEq oral tablet, extended release) [...] Appointments Friday 2:00 PM EDT [facility]: [facility] [address] [place] [address]- \.br\ Medications\.br\ What How Much When Instructions\.br\ [...] concerns \.br\ Unchanged potassium chloride (Potassium Chloride (Lps-Cmmr-Kks M20) 20 mEq oral tablet, extended release) [...] numbers. This can be done either in [place] or metric measurements. Note that charts and online BMI calculators are available to help you find your BMI quickly and easily without having to do these calculations yourself.\.br\ To calculate your BMI in [place] measurements:\.br \ \.br\ 1. \.br\ Measure [...] Disease Control and Prevention: www.cdc.gov\.br\ ? \.br\ [place] [employer]: www.heart.org\.br \ ? \.br\ National Heart, Lung, and Blood [place]: www.nhlbi.nih.gov \.br\ Summary\.br\ ? \.br\ Body mass index (BMI) is a number that is calculated from a person's weight and height.\.br\ ? \.br\ BMI may help estimate how much of a person's weight is composed of fat. BMI can help identify those who may be at higher risk for certain medical problems.\.br\ ? \.br\ BMI can be measured using Tuvaluan measurements or metric measurements.\.br \ ? \.br\ BMI charts are used to identify whether you are underweight, normal weight, overweight, or obese.\.br\ This information is not intended to replace advice given to you by your health care provider. Make sure you discuss any questions you have with your health care provider.\.br\ Document Revised: 04/05/2020 Document Reviewed: 02/11/2020 [employer] Patient Education ? 2022 [employer].br\ \.br\ [facility] Ambulatory Visit Summary SANDIP BROUSSARD :1940 [...] 40 mg Cap-) potassium chloride (Potassium Chloride (Osx-Eexe-Lwz M20) 20 mEq oral tablet, extended release) [...] EDT With: Mick SEN, Álvaro Davies Where: [facility] CBC w/ Auto Diffon Erythrocyte distribution width (RBC) [Ratio] 31.5 % High 10.9-14.2 [facility] Comment on above: Performed By: #### 2 369993, 1287907, 82099044, 0481082, 43287998, 49306853, 709809271 ####[facility] [address] [place] [address] Hematocrit (Bld) [Volume fraction] 18.1 % Low 37.7-49.0 [facility] Comment on above: Performed By: #### 2 644085, 7890038, 61164622, 7615305, 98728913, 88157133, 174153574 ####[facility] [address] [place] [address] Hemoglobin (Bld) [Mass/Vol] 5.9 g/dL Abnormal 13.5-17.5 [facility] Comment on above: Result Comment: Resu lts Called To dr sparks By And Read Back For Confirmation On 01/06/2023 19:53:45 EDT. Performed By: #### 2 022128, 8320784, 17944521, 3577220, 99849172, 38798787, 817086260 ####[address] [address] MCH (RBC) [Entitic mass] 36.4 pg High 27.0-34.0 [facility] Comment on above: Performed By: #### 2 861016, 0959201, 35095473, 8434755, 26350036, 26860240, 484974148 ####[address] [address] MCHC (RBC) [Mass/Vol] 32.3 g/dL Normal 31.4-36.0 [facility] Comment on above: Performed By: #### 2 899481, 9565299, 32353493, 8001911, 01299712, 41775556, 683648215 ####[address] [address] MCV (RBC) [Entitic vol] 112.5 fL High 80.0-100.0 [facility] Comment on above: Performed By: #### 2 661515, 5157548, 81911637, 0476388, 08605150, 75956822, 774530497 ####[address] [address] Platelet mean volume (Bld) [Entitic vol] 13.2 fL High 6.4-10.8 [facility] Comment on above: Performed By: #### 2 831321, 0068567, 21020474, 5950487, 08509089, 39274244, 360133971 ####[address] [address] Platelets (Bld) [#/Vol] 89.0 E9/L Low 150.0-500.0 [facility] Comment on above: Performed By: #### 2 511023, 1504324, 10638150, 2528105, 74678920, 44246844, 177437878 ####[address] [address] RBC (Bld) [#/Vol] 1.6 E12/L Low 4.3-5.9 [facility] Comment on above: Performed By: #### 2 271866, 0929234, 21804445, 9991465, 24721977, 19470284, 114152885 ####[facility] [address] [place] [address] WBC corrected for nucl RBC Auto (Bld) [#/Vol] 2.5 E9/L Low 4.0-11.0 [facility] Comment on above: Performed By: #### 2 317714, 1994070, 08542128, 1299756, 53134830, 10196143, 200886853 ####[address] [place] [address] CMPon 01-06-2023 Albumin [Mass/Vol] 3.2 g/dL Low 3.3-5.0 [facility] Comment on above: Performed By: #### 2 916404, 2240643, 32637900, 7675340, 99827300, 81295808, 076434709 ####[address] [place] [address] Albumin/Globulin (S) [Mass conc ratio] 1.0 Low 1.1-2.2 [facility] Comment on above: Performed By: #### 2 479919, 6565554, 65827624, 6768123, 96664245, 08868930, 408825013 ####[facility] [address] [place] [address] ALP [Catalytic activity/Vol] 70 Int._Unit/L Normal 21-98 [facility] Comment on above: Performed By: #### 2 612568, 9723158, 52380436, 6861039, 29536655, 36660592, 975662427 ####[address] [place] [address] ALT No additional P-5'-P [Catalytic activity/Vol] 79 Int._Unit/L High 6-46 [facility] Comment on above: Performed By: #### 2 826400, 4823531, 25594229, 7787963, 10358865, 80712504, 090888522 ####[facility] [address] [place] [address] Anion gap [Moles/Vol] 13 mmol/L Normal 6-16 [facility] Comment on above: Performed By: #### 2 903779, 4828459, 27176803, 6892372, 07135857, 31767931, 712926777 ####[facility] [address] [place] [address] AST [Catalytic activity/Vol] 25 Int._Unit/L Normal 5-43 [facility] Comment on above: Performed By: #### 2 030501, 5363618, 66797585, 1387733, 93071871, 77476123, 708187374 ####[address] [address] Bilirubin [Mass/Vol] 0.8 mg/dL Normal 0.0-1.1 [facility] Comment on above: Performed By: #### 2 309198, 5398880, 76742792, 2916800, 22712619, 47912890, 881284100 ####[address] [place] [address] Calcium [Mass/Vol] 8.8 mg/dL Low 8.9-11.1 [facility] Comment on above: Performed By: #### 2 511501, 1552613, 82435209, 8975206, 33698503, 76598426, 339939488 ####[facility] [address] [place] [address] Chloride [Moles/Vol] 104 mmol/L Normal 101-111 [facility] Comment on above: Performed By: #### 2 016894, 3752295, 97098292, 3328780, 31087270, 46591616, 765074414 ####[facility] [address] [place] [address] CO2 [Moles/Vol] 28 mmol/L Normal 21-31 [facility] Comment on above: Performed By: #### 2 095589, 9783074, 88931666, 3162943, 97604654, 35866707, 837168172 ####[facility] [address] [place] [address] Creatinine [Mass/Vol] 2.2 mg/dL High 0.5-1.3 [facility] Comment on above: Performed By: #### 2 040892, 1444273, 43471329, 5215277, 95138636, 33274282, 034720977 ####[facility] [address] [place] [address] Globulin (S) [Mass/Vol] 3.3 g/dL Normal 1.4-4.0 [facility] Comment on above: Performed By: #### 2 352273, 3371358, 54267282, 6409941, 86362235, 66527253, 599216310 ####[facility] [address] [place] [address] Glucose [Mass/Vol] 192 mg/dL Normal 55-199 [facility] Comment on above: Result Comment: If t his glucose result represents a fasting glucose, interpretation should refer to the following reference range: 55-99 mg/dL Performed By: #### 2 763945, 4885756, 50954163, 6576578, 42917939, 01772308, 707821371 ####[facility] [address] [place] [address] Potassium [Moles/Vol] 4.3 mmol/L Normal 3.5-5.3 [facility] Comment on above: Performed By: #### 2 739750, 3265556, 57298317, 2859281, 29278446, 04748305, 291311258 ####[facility] [address] [place] [address] Protein [Mass/Vol] 6.5 g/dL Normal 6.0-7.8 [facility] Comment on above: Performed By: #### 2 730593, 2961495, 26352232, 1313121, 56739295, 87591763, 869855546 ####[facility] [address] [place] [address] Sodium [Moles/Vol] 141 mmol/L Normal 135-145 [facility] Comment on above: Performed By: #### 2 476223, 7488030, 82734087, 7770950, 23596353, 27865506, 706590856 ####[facility] [address] [place] [address] Urea nitrogen [Mass/Vol] 41 mg/dL High 5-21 [facility] Comment on above: Performed By: #### 2 512138, 0276547, 04737125, 2281485, 72948698, 68242287, 446251473 ####[facility] [address] [place] [address] Urea nitrogen/Creatinine [Mass ratio] 19 No Units Normal 10-20 [facility] Comment on above: Performed By: #### 2 000002, 5397461, 36186519, 0631768, 07064000, 58835053, 869460539 ####[facility] [address] [place] [address] Family Medicine Office/Clini c Noteon 01-06-2023 Family [...] of O2 2/2 pulm HTN, CHF. - [facility] is cardiology - No Pulm Doc - [...] Comprehensive Metabolic Panel HgbA1c Lab Specimen Collect 15835 Microalbumin Level Urine U Protein/Creat Ratio 2. AP (angina pectoris) (I20.9: Angina pectoris, unspecified) - No chest pain. Ordered: CBC w/ Auto Diff Comprehensive Metabolic Panel HgbA1c Lab Specimen Collect [address] Microalbumin Level Urine U Protein/Creat Ratio 3. Diabetes (E11.9: Type 2 diabetes mellitus without complications) - Will check A1c. - Will relax requirements as the patient is on hospice. Ordered: CBC w/ Auto Diff Comprehensive Metabolic Panel HgbA1c Lab Specimen Collect [address]2337 Microalbumin Level Urine U Protein/Creat Ratio 4. 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 Ordered: CBC w/ Auto Diff Comprehensive Metabolic Panel HgbA1c Lab Specimen Collect 14241 Microalbumin Level Urine U Protein/Creat Ratio 5. Hyperlipidemia (E78.5: Hyperlipidemia, unspecified) - Will have the patient stop taking his cholesterol meds. Ordered: CBC w/ Auto Diff Comprehensive Metabolic Panel HgbA1c Lab Specimen Collect 21180 Microalbumin Level Urine U Protein/Creat Ratio 6. [...] or previo (more content not included)... Normal [facility] Comment on above: Result Comment: Elec tronically Signed By: Mick SEN, Álvaro Davies\.br\Date and Time Signed: 01/06/23 12:30 EDT VkmE9tez 01-06-2023 HbA1c (Bld) [Mass fraction] 8.1 % High <=5.9 [facility] Comment on above: Performed By: #### 2 394139, 1459305, 52811433, 9599439, 53063965, 43766690, 913744656 ####[facility] [address] [place] [address] Manual Diffon 01-06-2023 Anisocytosis Ql (Bld) Present Normal [facility] Comment on above: Order Comment: Order Added by Discern Expert. Performed By: #### 2 789140, 8944573, 72050095, 9422886, 64132660, 92338469, 239297661 ####[facility] [address] [place] [address] Band form neutrophils/100 WBC (Bld) 5 % Normal 0-10 [facility] Comment on above: Order Comment: Order Added by Discern Expert. Performed By: #### 2 478392, 6643060, 95762230, 8413524, 50201589, 60823190, 494570628 ####[facility] [address] [place] [address] Basophils/100 WBC (Bld) 1 % Normal 0-2 [facility] Comment on above: Order Comment: Order Added by Discern Expert. Performed By: #### 2 370914, 3383308, 57506159, 3486554, 98796312, 92583779, 318159476 ####[facility] [address] [place] [address] Eosinophils/100 WBC (Bld) 0 % Normal 0-8 [facility] Comment on above: Order Comment: Order Added by Discern Expert. Performed By: #### 2 080198, 4789534, 70112866, 2955657, 88409296, 51771516, 501121377 ####[facility] [address] [place] [address] Hypochromia Auto Ql (Bld) Present Normal [facility] Comment on above: Order Comment: Order Added by Discern Expert. Performed By: #### 2 418862, 3005892, 37704294, 1774845, 42784727, 06688431, 096180737 ####[facility] [address] [place] [address] Lymphocytes/100 WBC (Bld) 30 % Normal 14-50 [facility] Comment on above: Order Comment: Order Added by Discern Expert. Performed By: #### 2 787735, 5652418, 52977726, 3907734, 26192594, 68728313, 371082174 ####[facility] [address] [place] [address] Macrocytes Ql (Bld) Present Normal [facility] Comment on above: Order Comment: Order Added by Discern Expert. Performed By: #### 2 162543, 1106604, 51718713, 8269742, 00646109, 85974283, 100862567 ####[facility] [address] [place] [address] Monocytes/100 WBC (Bld) 7 % Normal 4-14 [facility] Comment on above: Order Comment: Order Added by Discern Expert. Performed By: #### 2 787419, 1333943, 90522456, 4135472, 72268092, 61422637, 101752802 ####[facility] [address] [place] [address] Morphology Edmundo (Bld) [Interp] See Morphology Normal [facility] Comment on above: Order Comment: Order Added by Discern Expert. Performed By: #### 2 219233, 0457840, 20223251, 1346333, 63132973, 05130291, 426665420 ####[facility] [address] [place] [address] Myelocytes/100 WBC (Bld) 5 % High <=0 [facility] Comment on above: Order Comment: Order Added by Discern Expert. Performed By: #### 2 290915, 2209519, 63614350, 1442192, 25122905, 74248302, 859588554 ####[facility] [address] [place] [address] Ovalocytes LM Ql (Bld) Present Normal [facility] Comment on above: Order Comment: Order Added by Discern Expert. Performed By: #### 2 908842, 3944912, 76541445, 5142778, 44410764, 75214857, 773212030 ####[facility] [address] [place] [address] Platelets Large LM Ql (Bld) Present Normal [facility] Comment on above: Order Comment: Order Added by Discern Expert. Performed By: #### 2 318962, 4271294, 70444252, 8520964, 17633448, 86226906, 677482672 ####[facility] [address] [place] [address] Segmented neutrophils/100 WBC (Bld) 50 % Normal 36-75 [facility] Comment on above: Order Comment: Order Added by Discern Expert. Performed By: #### 2 281393, 2605595, 59294517, 8739606, 42139314, 87387956, [id number] ####[facility] [address] [place] [address] Variant lymphocytes LM Ql (Bld) 2 % High <=0 [facility] Comment on above: Order Comment: Order Added by Discern Expert. Performed By: #### 2 [id number], [id number], [id number], [id number], [id number], [id number], [id number] ####[facility] [address] [place] [address] Patient Educationon 01-07-20 Patient Education Nutrition BMI [...] numbers. This can be done either in [place] or metric measurements. Note that charts and online BMI calculators are available to help you find your BMI quickly and easily without having to do these calculations yourself. To calculate your BMI in [place] measurements: 1. Measure your weight in [...] for Disease Control and Prevention: www.cdc.gov ? [place] [employer]: www.heart.org ? National Heart, Lung, and Blood [place]: www.nhlbi.nih.gov Summary ? Body mass index (BMI) is a number that is calculated from a person's weight and height. ? BMI may help estimate how much of a person's weight is composed of fat. BMI can help identify those who may be at higher risk for certain medical problems. ? BMI can be measured using Tu[place]uan measurements or metric measurements. ? BMI charts are used to identify whether you are underweight, normal weight, overweight, or obese. This information is not intended to replace advice given to you by your health care provider. Make sure you discuss any questions you have with your health care provider. Document Revised: 04/05/2020 Document Reviewed: 02/11/2020 [employer] Patient Education ? 2022 [employer]. Normal [facility] eGFRon 01-06-2023 GFR/1.73 sq M.predicted among non-blacks MDRD (S/P/Bld) [Vol rate/Area] 29 mL/min/1.73 m2 Low >=59 [facility] Comment on above: Order Comment: Order added by Discern Expert. Result Comment: Towel Folder charlene kidney disease could be indicated at eGFR's of less than 60 mL/min/1.73m2. Kidney failure is indicated at less than 15 mL/min/1.73m2. Performed By: #### 2 [id number], [id number], [id number], [id number], [id number], [id number], [id number] ####[facility] [address] [place] [address] Lab Reportson 12-26-2022 Lab Reports [id number] D:127 Normal [facility] Lab Reportson 12-11-2022 Lab Reports [id number] D:127 Normal [facility] CBC AUTO DIFFon 12-10-2022 BASO # 0.0 103/ul Normal 0.0-0.1 [facility] Comment on above: Performed By: #### H H #### [facility] [address] [address] [address] Benito To Basophils/100 WBC (Bld) 0.5 % Normal 0.2-2.0 [facility] Comment on above: Performed By: #### H H #### [facility] [address] [address] [address] Benito To EO # 0.0 103/ul Normal 0.0-0.7 [facility] Comment on above: Performed By: #### H H #### [facility] [address] [address] [address] Benito To Eosinophils/100 WBC (Bld) 0.9 % Normal 0.9-7.0 [facility] Comment on above: Performed By: #### H H #### [facility] [address] [address] [address] Benito To Erythrocyte distribution width (RBC) [Ratio] 26.4 % Critically high 11.0-15.0 [facility] Comment on above: Performed By: #### H H #### [facility] [address] [address] [address] Benito To Hematocrit (Bld) [Volume fraction] 25.0 % Critically low 42.0-54.0 [facility] Comment on above: Performed By: #### H H #### [facility] [address] [place] [address] Dr. Benito To Hemoglobin (Bld) [Mass/Vol] 8.1 g/dL Critically low 14.0-18.0 [facility] Comment on above: Performed By: #### H H #### [facility] [address] [place] [address] Dr. Benito To IG # 0.11 10e3/ul Critically high 0.00-0.03 [facility] Comment on above: Performed By: #### H H #### [facility] [address] [place] [address] Dr. Benito To IG % 5.0 % Critically high 0.0-0.5 [facility] Comment on above: Performed By: #### H H #### [facility] [address] [place] [address] Dr. Benito To LYMPH # 0.7 103/ul Critically low 1.2-3.8 [facility] Comment on above: Performed By: #### H H #### [facility] [address] [place] [address] Dr. Benito To Lymphocytes/100 WBC (Bld) 29.9 % Normal 20.5-60.0 [facility] Comment on above: Performed By: #### H H #### [facility] [address] [place] [address] Dr. Benito To MANUAL DIFF REQ NO Normal [facility] Comment on above: Performed By: #### H H #### [facility] [address] [place] [address] Dr. Benito To MCH (RBC) [Entitic mass] 33.2 pg Normal 25.9-34.0 [facility] Comment on above: Performed By: #### H H #### [facility] [address] [place] [address] Dr. Benito To MCHC (RBC) [Mass/Vol] 32.4 g/dL Normal 29.9-35.2 [facility] Comment on above: Performed By: #### H H #### [facility] [address] [place] [address] Dr. Benito To MCV (RBC) [Entitic vol] 102.5 fL Critically high 80.0-94.0 [facility] Comment on above: Performed By: #### H H #### [facility] [address] [address] [address] Benito To MONO # 0.3 103/ul Normal 0.3-0.8 [facility] Comment on above: Performed By: #### H H #### [facility] [address] [place] [address] Dr. Benito To Monocytes/100 WBC (Bld) 14.5 % Critically high 1.7-12.0 [facility] Comment on above: Performed By: #### H H #### [facility] [address] [place] [address] Dr. Benito To NEUT # 1.1 103/ul Critically low 1.4-6.5 [facility] Comment on above: Performed By: #### H H #### [facility] [address] [place] [address] Dr. Benito To Neutrophils/100 WBC (Bld) 49.2 % Normal 43.0-75.0 [facility] Comment on above: Performed By: #### H H #### [facility] [address] [place] [address] Dr. Benito To Platelet mean volume (Bld) [Entitic vol] 14.4 fL Critically high 9.5-13.5 [facility] Comment on above: Performed By: #### H H #### [facility] [address] [place] [address] Dr. Benito To PLT 121 103/ul Critically low 150-450 [facility] Comment on above: Performed By: #### H H #### [facility] [address] [place] [address] Dr. Benito To RBC 2.44 106/ul Critically low 4.70-6.10 [facility] Comment on above: Performed By: #### H H #### [facility] [address] [place] [address] Dr. Benito To WBC 2.2 103/ul Critically low 4.0-11.0 [facility] Comment on above: Performed By: #### H H #### [facility] [address] [address] [address] Benito To Lab Reportson 12-04-2022 Lab Reports [id number] D:127 Normal [facility] PRBC LEUKOREDUCEDon 12-05-19 23 ABO and Rh group Nom (Bld) Cross Match Result Compatible Unit Blood Type A Pos Unit Number [id number] Status Information Issued Product ID Red Blood Cells Product Code [id number] Issue Date/Time [id number] Normal [facility] Comment on above: Performed By: #### P RBC, TNS #### [facility] [address] [place] [address] Dr. Benito To Ambulatory Visit Summaryon 0 [...] 40 mg Cap-) potassium chloride (Potassium Chloride (Imu-Jefg-Veq M20) 20 mEq oral tablet, extended release) [...] EDT With: Mick SEN, Álvaro Davies Where: [facility] CBC AUTO DIFFon 12-03-2022 BASO # 0.0 103/ul Normal 0.0-0.1 [facility] Comment on above: Performed By: #### T NS, PRBC #### [facility] [address] [place] [address] Dr. Benito To Basophils/100 WBC (Bld) 0.4 % Normal 0.2-2.0 [facility] Comment on above: Performed By: #### T NS, PRBC #### [facility] [address] [place] [address] Dr. Benito To EO # 0.0 103/ul Normal 0.0-0.7 [facility] Comment on above: Performed By: #### T NS, PRBC #### [facility] [address] [place] [address] Dr. Benito To Eosinophils/100 WBC (Bld) 0.4 % Critically low 0.9-7.0 [facility] Comment on above: Performed By: #### T NS, PRBC #### [facility] [address] [place] [address] Dr. Benito To Erythrocyte distribution width (RBC) [Ratio] 26.9 % Critically high 11.0-15.0 [facility] Comment on above: Performed By: #### T NS, PRBC #### [facility] [address] [place] [address] Dr. Benito To Hematocrit (Bld) [Volume fraction] 22.5 % Critically low 42.0-54.0 [facility] Comment on above: Performed By: #### T NS, PRBC #### [facility] [address] [place] [address] Dr. Benito To Hemoglobin (Bld) [Mass/Vol] 7.0 g/dL Critically low 14.0-18.0 [facility] Comment on above: Performed By: #### T NS, PRBC #### [facility] [address] [place] [address] Dr. Benito To IG # 0.16 10e3/ul Critically high 0.00-0.03 [facility] Comment on above: Performed By: #### T NS, PRBC #### [facility] [address] [place] [address] Dr. Benito To IG % 7.0 % Critically high 0.0-0.5 [facility] Comment on above: Performed By: #### T NS, PRBC #### [facility] [address] [place] [address] Dr. Benito To LYMPH # 0.7 103/ul Critically low 1.2-3.8 [facility] Comment on above: Performed By: #### T NS, PRBC #### [facility] [address] [place] [address] Dr. Benito To Lymphocytes/100 WBC (Bld) 28.6 % Normal 20.5-60.0 [facility] Comment on above: Performed By: #### T NS, PRBC #### [facility] [address] [place] [address] Dr. Benito To MANUAL DIFF REQ NO Normal [facility] Comment on above: Performed By: #### T NS, PRBC #### [facility] [address] [place] [address] Dr. Benito To MCH (RBC) [Entitic mass] 32.6 pg Normal 25.9-34.0 [facility] Comment on above: Performed By: #### T NS, PRBC #### [facility] [address] [place] [address] Dr. Benito To MCHC (RBC) [Mass/Vol] 31.1 g/dL Normal 29.9-35.2 [facility] Comment on above: Performed By: #### T NS, PRBC #### [facility] [address] [place] [address] Dr. Benito To MCV (RBC) [Entitic vol] 104.7 fL Critically high 80.0-94.0 [facility] Comment on above: Performed By: #### T NS, PRBC #### [facility] [address] [place] [address] Dr. Benito To MONO # 0.4 103/ul Normal 0.3-0.8 [facility] Comment on above: Performed By: #### T NS, PRBC #### [facility] [address] [place] [address] Dr. Benito To Monocytes/100 WBC (Bld) 19.4 % Critically high 1.7-12.0 [facility] Comment on above: Performed By: #### T NS, PRBC #### [facility] [address] [place] [address] Dr. Benito oT NEUT # 1.0 103/ul Critically low 1.4-6.5 [facility] Comment on above: Performed By: #### T NS, PRBC #### [facility] [address] [place] [address] Dr. Benito To Neutrophils/100 WBC (Bld) 44.2 % Normal 43.0-75.0 [facility] Comment on above: Performed By: #### T NS, PRBC #### [facility] [address] [place] [address] Dr. Benito To Platelet mean volume (Bld) [Entitic vol] 14.6 fL Critically high 9.5-13.5 [facility] Comment on above: Performed By: #### T NS, PRBC #### [facility] [address] [place] [address] Dr. Benito To PLT 93 103/ul Critically low 150-450 [facility] Comment on above: Performed By: #### T NS, PRBC #### [facility] [address] [place] [address] Dr. Benito To RBC 2.15 106/ul Critically low 4.70-6.10 [facility] Comment on above: Performed By: #### T NS, PRBC #### [facility] [address] [place], [place] [address] Dr. Benito To WBC 2.3 103/ul Critically low 4.0-11.0 [facility] Comment on above: Performed By: #### T NS, PRBC #### [facility] [address] [place], [place] [address] Dr. Benito To Family Medicine Office/Clini c [...] mg= 1 cap(s), Oral, Daily Potassium Chloride (Mkz-Wkvz-Uph M20) 20 mEq oral tablet, extended release, [...] SARS-CoV-2 (COVID-19) (more content not included)... Normal [facility] Comment on above: Result Comment: Elec tronically Signed By: RYANNE SEN, FLASH E\.br\Date and Time Signed: 12/03/22 13:58 EDT PROF CHEM 8 (BAS METB)on Anion gap [Moles/Vol] 8.3 mmol/L Normal [facility] Comment on above: Performed By: #### T ZEHRA, PRBC #### [facility] [address] [address] [address] Benito To Calcium [Mass/Vol] 9.2 mg/dL Normal 8.5-10.1 [facility] Comment on above: Performed By: #### T ZEHRA, PRBC #### [facility] [address] [address] [address] Benito To Chloride [Moles/Vol] 102 mmol/L Normal 98-107 [facility] Comment on above: Performed By: #### T NS, PRBC #### [facility] [address] [address] [address] Benito To CO2 [Moles/Vol] 31.5 mmol/L Normal 21.0-32.0 [facility] Comment on above: Performed By: #### T NS, PRBC #### [facility] [address] [place] [address] Dr. Benito To Creatinine [Mass/Vol] 1.96 mg/dL Critically high 0.70-1.30 [facility] Comment on above: Performed By: #### T NS, PRBC #### [facility] [address] [place] [address] Dr. Benito To EGFR-AF OMANI 40 mL/min/1.73m2 Critically low >=60 [facility] Comment on above: Performed By: #### T NS, PRBC #### [facility] [address] [place] [address] Dr. Benito To EGFR-NON AF OMANI 33 mL/min/1.73m2 Critically low >=60 [facility] Comment on above: Performed By: #### T NS, PRBC #### [facility] [address] [place] [address] Dr. Benito To Glucose [Mass/Vol] 235 mg/dL Critically high 74-106 [facility] Comment on above: Performed By: #### T NS, PRBC #### [facility] [address] [place] [address] Dr. Benito To Potassium [Moles/Vol] 3.8 mmol/L Normal 3.5-5.1 [facility] Comment on above: Performed By: #### T NS, PRBC #### [facility] [address] [place] [address] Dr. Benito To Sodium [Moles/Vol] 138 mmol/L Normal 136-145 [facility] Comment on above: Performed By: #### T NS, PRBC #### [facility] [address] [address] [address] Benito To Urea nitrogen [Mass/Vol] 45.0 mg/dL Critically high 7.0-18.0 [facility] Comment on above: Performed By: #### T NS, PRBC #### [facility] [address] [address] [address] Benito To Urea nitrogen/Creatinine [Mass ratio] 23.0 mg/mg Normal [facility] Comment on above: Performed By: #### T NS, PRBC #### [facility] [address] [address] [address] Benito To TYPE AND SCREENon 12-03-2022 TYPE AND SCREEN Negative Normal [facility] Comment on above: Performed By: #### P RBC, TNS #### [facility] [address] [address] [address] Benito To Ambulatory Visit Summaryon 0 [...] 40 mg Cap-) potassium chloride (Potassium Chloride (Wwi-Aoeq-Nta M20) 20 mEq oral tablet, extended release) [...] Follow-Up Appointments Friday 1:20 PM EDT With: FLASH PEARL MD Where: [facility] Ambulatory Visit Summary SANDIP BROUSSARD :1940 [...] 40 mg Cap-DR) potassium chloride (Potassium Chloride (Fzq-Qhjc-Rno M20) 20 mEq oral tablet, extended release) [...] Follow-Up Appointments Friday 1:20 PM EDT With: FLASH PEARL MD [facility] CBC W Auto Differential pane l (Bld)on 11-20-2022 Anisocytosis Ql (Bld) Present Normal [facility] Comment on above: Order Comment: Speci men Type: BLOOD SPECIMENOrdering Facility: [facility] Address: [address] [place] [address] Performed By: #### 5 7021-8 ####[facility] LABCLIA [id number] [address] LABCLIA [id number] [place] [address] [place] Basophils (Bld) [#/Vol] 0.06 10*3/uL Normal <0.11 [facility] Comment on above: Order Comment: Speci men Type: BLOOD SPECIMENOrdering Facility: [facility] Address: [address] [place] [address] Performed By: #### 5 7021-8 ####[facility] LABCLIA [id number] [address] LABCLIA [id number] [place] [address] [place] Basophils/100 WBC (Bld) 1.0 % Normal [facility] Comment on above: Order Comment: Speci men Type: BLOOD SPECIMENOrdering Facility: [facility] Address: [address] [place], [place] [address] Performed By: #### 5 7021-8 ####[facility] LABCLIA [id number] [address] LABCLIA [id number] [place] [address] [place] Differential cell count method Nom (Bld) Manual Normal [facility] Comment on above: Order Comment: Speci men Type: BLOOD SPECIMENOrdering Facility: [facility] Address: [address] [place], [place] [address] Performed By: #### 5 7021-8 ####[facility] LABCLIA [id number] [address] LABCLIA [id number] [place] [address] [place] DYSPLASTIC PMNS Occasional Normal [facility] Comment on above: Order Comment: Speci men Type: BLOOD SPECIMENOrdering Facility: [facility] Address: [address] [place] [address] Performed By: #### 5 7021-8 ####[facility] LABCLIA [id number] [address] LABCLIA [id number] [place] [address] [place] Eosinophils (Bld) [#/Vol] 0.00 10*3/uL Normal <0.46 [facility] Comment on above: Order Comment: Speci men Type: BLOOD SPECIMENOrdering Facility: [facility] Address: [address] [place] [address] Performed By: #### 5 7021-8 ####[facility] LABCLIA [id number] [address] LABCLIA [id number] [place] [address] [place] Eosinophils/100 WBC (Bld) 0.0 % Normal [facility] Comment on above: Order Comment: Speci men Type: BLOOD SPECIMENOrdering Facility: [facility] Address: [address] [place] [address] Performed By: #### 5 7021-8 ####[facility] LABCLIA [id number] [address] LABCLIA [id number] [place] [address] [place] Erythrocyte distribution width (RBC) [Ratio] 25.0 % High 11.5-15.0 [facility] Comment on above: Order Comment: Speci men Type: BLOOD SPECIMENOrdering Facility: [facility] Address: [address] [place] [address] Performed By: #### 5 7021-8 ####[facility] LABCLIA [id number] [address] LABCLIA [id number] [place] [address] [place] Hematocrit (Bld) [Volume fraction] 25.0 % Low 39.0-51.0 [facility] Comment on above: Order Comment: Speci men Type: BLOOD SPECIMENOrdering Facility: [facility] Address: [address] [place] [address] Performed By: #### 5 7021-8 ####[facility] LABCLIA [id number] [address] LABCLIA [id number] [place] [address] [place] Hemoglobin (Bld) [Mass/Vol] 7.9 g/dL Low 13.0-17.0 [facility] Comment on above: Order Comment: Speci men Type: BLOOD SPECIMENOrdering Facility: [facility] Address: [address] [place] [address] Performed By: #### 5 7021-8 ####[facility] LABCLIA [id number] [address] LABCLIA [id number] [place] [address] [place] Lymphocytes (Bld) [#/Vol] 1.60 10*3/uL Normal 1.00-4.00 [facility] Comment on above: Order Comment: Speci men Type: BLOOD SPECIMENOrdering Facility: [facility] Address: [address] [place] [address] Performed By: #### 5 7021-8 ####[facility] LABCLIA [id number] [address] LABCLIA [id number] [place] [address] [place] Lymphocytes/100 WBC (Bld) 25.0 % Normal [facility] Comment on above: Order Comment: Speci men Type: BLOOD SPECIMENOrdering Facility: [facility] Address: [address] [place] [address] Performed By: #### 5 7021-8 ####[facility] LABCLIA [id number] [address] LABCLIA [id number] [place] [address] [place] MCH (RBC) [Entitic mass] 32.5 pg Normal 26.0-34.0 [facility] Comment on above: Order Comment: Speci men Type: BLOOD SPECIMENOrdering Facility: [facility] Address: [address] [place], [place] [address] Performed By: #### 5 7021-8 ####[facility] LABCLIA [id number] [address] LABCLIA [id number] [place] [address] [place] MCHC (RBC) [Mass/Vol] 31.6 g/dL Normal 30.5-36.0 [facility] Comment on above: Order Comment: Speci men Type: BLOOD SPECIMENOrdering Facility: [facility] Address: [address] [place], [place] [address] Performed By: #### 5 7021-8 ####[facility] LABCLIA [id number] [address] LABCLIA [id number] [place] [address] [place] MCV (RBC) [Entitic vol] 102.9 fL High 80.0-100.0 [facility] Comment on above: Order Comment: Speci men Type: BLOOD SPECIMENOrdering Facility: [facility] Address: [address] [place] [address] Performed By: #### 5 7021-8 ####[facility] LABCLIA [id number] [address] LABCLIA [id number] [place] [address] [place] Metamyelocytes/100 WBC (Bld) 1.0 % Normal [facility] Comment on above: Order Comment: Speci men Type: BLOOD SPECIMENOrdering Facility: [facility] Address: [address] [place] [address] Performed By: #### 5 7021-8 ####[facility] LABCLIA [id number] [address] LABCLIA [id number] [place] [address] [place] Monocytes (Bld) [#/Vol] 1.15 10*3/uL High <0.87 [facility] Comment on above: Order Comment: Speci men Type: BLOOD SPECIMENOrdering Facility: [facility] Address: [address] [place] [address] Performed By: #### 5 7021-8 ####[facility] LABCLIA [id number] [address] LABCLIA [id number] [place] [address] [place] Monocytes/100 WBC (Bld) 18.0 % Normal [facility] Comment on above: Order Comment: Speci men Type: BLOOD SPECIMENOrdering Facility: [facility] Address: [address] [place] [address] Performed By: #### 5 7021-8 ####[facility] LABCLIA [id number] [place] [id number] LABCLIA [id number] [place] [address] [place] MYELO% 14.0 % Normal [facility] Comment on above: Order Comment: Speci men Type: BLOOD SPECIMENOrdering Facility: [facility] Address: [address] [place] [address] Performed By: #### 5 7021-8 ####[facility] LABCLIA [id number] [address] LABCLIA [id number] [place] [address] [place] Neutrophils (Bld) [#/Vol] 2.63 10*3/uL Normal 1.45-7.50 [facility] Comment on above: Order Comment: Speci men Type: BLOOD SPECIMENOrdering Facility: [facility] Address: [address] [place] [address] Performed By: #### 5 7021-8 ####[facility] LABCLIA [id number] [address] LABCLIA [id number] [place] [address] [place] Neutrophils/100 WBC (Bld) 41.0 % Normal [facility] Comment on above: Order Comment: Speci men Type: BLOOD SPECIMENOrdering Facility: [facility] Address: [address] [place] [address] Performed By: #### 5 7021-8 ####[facility] LABCLIA [id number] [address] LABCLIA [id number] [place] [address] [place] Nucleated RBC (Bld) [#/Vol] 10*3/uL Normal <0.01 [facility] Comment on above: Order Comment: Speci men Type: BLOOD SPECIMENOrdering Facility: [facility] Address: [address] Performed By: #### 5 7021-8 ####[facility] LABCLIA [id number] [address] LABCLIA [id number] [place] [address] [place] Nucleated RBC/100 WBC (Bld) [Ratio] 0.0 /100 WBC Normal [facility] Comment on above: Order Comment: Speci men Type: BLOOD SPECIMENOrdering Facility: [facility] Address: [address] Performed By: #### 5 7021-8 ####[facility] LABCLIA [id number] [address] LABCLIA [id number] [place] [address] [place] Ovalocytes LM Ql (Bld) Few Normal [facility] Comment on above: Order Comment: Speci men Type: BLOOD SPECIMENOrdering Facility: [facility] Address: [address] Performed By: #### 5 7021-8 ####[facility] LABCLIA [id number] [address] LABCLIA [id number] [place] [address] [place] Platelet mean volume (Bld) [Entitic vol] 15.0 fL High 9.0-12.7 [facility] Comment on above: Order Comment: Speci men Type: BLOOD SPECIMENOrdering Facility: [facility] Address: [address] Performed By: #### 5 7021-8 ####[facility] LABCLIA [id number] [address] LABCLIA [id number] [place] [address] [place] Platelets (Bld) [#/Vol] 121 10*3/uL Low 150-400 [facility] Comment on above: Order Comment: Speci men Type: BLOOD SPECIMENOrdering Facility: [facility] Address: [address] [place] [address] Result Comment: Resu lts checked and verified.No clot detected. Performed By: #### 5 7021-8 ####[facility] LABCLIA [id number] [address] LABCLIA [id number] [place] [address] [place] Platelets Estimate (Bld) [#/Vol] Decreased Normal [facility] Comment on above: Order Comment: Speci men Type: BLOOD SPECIMENOrdering Facility: [facility] Address: [address] [place] [address] Performed By: #### 5 7021-8 ####[facility] LABCLIA [id number] [address] LABCLIA [id number] [place] [address] [place] Polychromasia LM Ql (Bld) Slight Normal [facility] Comment on above: Order Comment: Speci men Type: BLOOD SPECIMENOrdering Facility: [facility] Address: [address] [place] [address] Performed By: #### 5 7021-8 ####[facility] LABCLIA [id number] [address] LABCLIA [id number] [place] [address] [place] RBC (Bld) [#/Vol] 2.43 10*6/uL Low 4.20-6.00 [facility] Comment on above: Order Comment: Speci men Type: BLOOD SPECIMENOrdering Facility: [facility] Address: [address] [address] Performed By: #### 5 7021-8 ####[facility] LABCLIA [id number] [address] LABCLIA [id number] [place] [address] [place] RED CELL MORPH Reviewed: see result s of individual morphologies Normal [facility] Comment on above: Order Comment: Speci men Type: BLOOD SPECIMENOrdering Facility: [facility] Address: [address] [address] Performed By: #### 5 7021-8 ####[facility] LABCLIA [id number] [address] LABCLIA [id number] [place] [address] [place] WBC (Bld) [#/Vol] 6.41 10*3/uL Normal 3.70-11.00 [facility] Comment on above: Order Comment: Speci men Type: BLOOD SPECIMENOrdering Facility: [facility] Address: [address] [place] [address] Result Comment: Resu lts checked and verified.No clot detected. Performed By: #### 5 7021-8 ####[facility] LABCLIA [id number] [address] LABCLIA [id number] [place] [address] [place] WBC Left Shift Ql (Bld) Present Normal [facility] Comment on above: Order Comment: Speci men Type: BLOOD SPECIMENOrdering Facility: [facility] Address: [address] [place] [address] Performed By: #### 5 7021-8 ####[facility] LABCLIA [id number] [address] LABCLIA [id number] [facility] [id number] [address] [place] CNOVSPon 11-20-2022 CNOVSP Normal [facility] CNPNon 11-20-2022 CNPN Normal [facility] Comprehensive metabolic 2000 panelon 11-20-2022 Albumin [Mass/Vol] 3.6 g/dL Low 3.9-4.9 [facility] Comment on above: Order Comment: Speci men Type: BLOOD SPECIMENOrdering Facility: [facility] Address: [address] [place] [address] Performed By: #### 2 4323-8 ####[facility] LABCLIA [id number] [place] [address] ALP [Catalytic activity/Vol] 184 U/L High 38-113 [facility] Comment on above: Order Comment: Speci men Type: BLOOD SPECIMENOrdering Facility: [facility] Address: [address] [place] [address] Performed By: #### 2 4323-8 ####[facility] LABCLIA [id number] [place] [address] ALT [Catalytic activity/Vol] 76 U/L High 10-54 [facility] Comment on above: Order Comment: Speci men Type: BLOOD SPECIMENOrdering Facility: [facility] Address: [address] [place] [address] Performed By: #### 2 4323-8 ####[facility] LABCLIA [id number] [place] [address] Anion gap [Moles/Vol] 10 mmol/L Normal 9-18 [facility] Comment on above: Order Comment: Speci men Type: BLOOD SPECIMENOrdering Facility: [facility] Address: [address] [place] [address] Performed By: #### 2 4323-8 ####[facility] LABCLIA [id number] [place] [address] AST [Catalytic activity/Vol] 46 U/L High 14-40 [facility] Comment on above: Order Comment: Speci men Type: BLOOD SPECIMENOrdering Facility: [facility] Address: [address] [place] [address] Performed By: #### 2 4323-8 ####[facility] LABCLIA [id number] [place] [address] Bilirubin [Mass/Vol] 0.7 mg/dL Normal 0.2-1.3 [facility] Comment on above: Order Comment: Speci men Type: BLOOD SPECIMENOrdering Facility: [facility] Address: [address] [place] [address] Performed By: #### 2 4323-8 ####[facility] LABCLIA [id number] [place] [address] Calcium [Mass/Vol] 9.4 mg/dL Normal 8.5-10.2 [facility] Comment on above: Order Comment: Speci men Type: BLOOD SPECIMENOrdering Facility: [facility] Address: [address] [place] [address] Performed By: #### 2 4323-8 ####[facility] LABCLIA [id number] [place] [address] Chloride [Moles/Vol] 91 mmol/L Low 97-105 [facility] Comment on above: Order Comment: Speci men Type: BLOOD SPECIMENOrdering Facility: [facility] Address: [address] [address] Performed By: #### 2 4323-8 ####[facility] LABCLIA [id number] [place] [address] CO2 [Moles/Vol] 37 mmol/L High 22-30 [facility] Comment on above: Order Comment: Speci men Type: BLOOD SPECIMENOrdering Facility: [facility] Address: [address] [place] [address] Performed By: #### 2 4323-8 ####[facility] LABCLIA [id number] [place] [address] Creatinine [Mass/Vol] 1.64 mg/dL High 0.73-1.22 [facility] Comment on above: Order Comment: Davi avendaño Type: BLOOD SPECIMENOrdering Facility: [facility] Address: [address] [place] [address] Performed By: #### 2 4323-8 ####[facility] LABIA [id number] [place] [address] ESTIMATED GLOMERULAR FILTRATION RATE 41 mL/min/1.73m??? Low >=60 [facility] Comment on above: Order Comment: Davi avendaño Type: BLOOD SPECIMENOrdering Facility: [facility] Address: [address] [place] [address] Result Comment: Faye mated Glomerular Filtration Rate [...] actual GFR. Performed By: #### 2 4323-8 ####[facility] LABCLIA [id number] [place] [address] Glucose [Mass/Vol] 168 mg/dL High 74-99 [facility] Comment on above: Order Comment: Davi avendaño Type: BLOOD SPECIMENOrdering Facility: [facility] Address: [address] [place] [address] Result Comment: The [place] [employer] (ADA) provides guidance for cutoff [...] Standards of Medical Care in Diabetes 2016, [place] [employer]. Diabetes Care. 2016.39(Suppl 1). Performed By: #### 2 4323-8 ####[facility] LABCLIA [id number] [place] [address] Potassium [Moles/Vol] 3.8 mmol/L Normal 3.7-5.1 [facility] Comment on above: Order Comment: Speci men Type: BLOOD SPECIMENOrdering Facility: [facility] Address: [address] [address] Performed By: #### 2 4323-8 ####[facility] LABCLIA [id number] [place] [address] Protein [Mass/Vol] 7.5 g/dL Normal 6.3-8.0 [facility] Comment on above: Order Comment: Speci men Type: BLOOD SPECIMENOrdering Facility: [facility] Address: [address] [address] Performed By: #### 2 4323-8 ####[facility] LABCLIA [id number] [place] [address] Sodium [Moles/Vol] 138 mmol/L Normal 136-144 [facility] Comment on above: Order Comment: Speci men Type: BLOOD SPECIMENOrdering Facility: [facility] Address: [address] [address] Performed By: #### 2 4323-8 ####[facility] LABCLIA [id number] [place] [address] Urea nitrogen [Mass/Vol] 50 mg/dL High 9-24 [facility] Comment on above: Order Comment: Speci men Type: BLOOD SPECIMENOrdering Facility: [facility] Address: [address] [address] Performed By: #### 2 4323-8 ####[facility] LABCLIA [id number] [place] [address] Echocardiographyon Echocardiography [id number]#1.00C D:127 Normal [facility] Office/Clini c Noteon 11-20-2022 Family [...] mg= 1 cap(s), Oral, Daily Potassium Chloride (Bxv-Nbkx-Fyu M20) 20 mEq oral tablet, extended release, [...] virus vaccine, inactivated 05/23/2013 Recorded Normal [facility] Comment on above: Result Comment: [...] mg= 1 cap(s), Oral, Daily Potassium Chloride (Czd-Aeyu-Fff M20) 20 mEq oral tablet, extended release, [...] smoker, q (more content not included)... Normal [facility] Comment on above: Result Comment: Elec tronically Signed By: RYANNE SEN, FLASH Holden\.br\Date and Time Signed: 11/20/22 14:14 EDT RAD - MISCon 11-20-2022 RAD - MIS [id number] D:127 Normal [facility] CNPNon 11-19-2022 CNPN Normal [facility] BNPon 11-17-2022 Natriuretic peptide B (Bld) [Mass/Vol] 6221.0 pg/mL Critically high <=1,800.0 [facility] Comment on above: Performed By: #### T ZEHRA, PRBC #### [facility] [address] [place] [address] Dr. Benito To CBC AUTO DIFFon 11-17-2022 BASO # 0.1 103/ul Normal 0.0-0.1 [facility] Comment on above: Performed By: #### T ZEHRA, PRBC #### [facility] [address] [address] [address] Benito To Basophils/100 WBC (Bld) 1.1 % Normal 0.2-2.0 [facility] Comment on above: Performed By: #### T NS, PRBC #### [facility] [address] [place] [address] Dr. Benito To EO # 0.0 103/ul Normal 0.0-0.7 [facility] Comment on above: Performed By: #### T NS, PRBC #### [facility] [address] [place] [address] Dr. Benito To Eosinophils/100 WBC (Bld) 0.0 % Critically low 0.9-7.0 [facility] Comment on above: Performed By: #### T NS, PRBC #### [facility] [address] [place] [address] Dr. Benito To Erythrocyte distribution width (RBC) [Ratio] 23.8 % Critically high 11.0-15.0 [facility] Comment on above: Performed By: #### T NS, PRBC #### [facility] [address] [place] [address] Dr. Benito To Hematocrit (Bld) [Volume fraction] 22.0 % Critically low 42.0-54.0 [facility] Comment on above: Performed By: #### T NS, PRBC #### [facility] [address] [place] [address] Dr. Benito To Hemoglobin (Bld) [Mass/Vol] 7.0 g/dL Critically low 14.0-18.0 [facility] Comment on above: Performed By: #### T NS, PRBC #### [facility] [address] [place] [address] Dr. Benito To IG # 1.95 10e3/ul Critically high 0.00-0.03 [facility] Comment on above: Performed By: #### T NS, PRBC #### [facility] [address] [place] [address] Dr. Benito To IG % 24.9 % Critically high 0.0-0.5 [facility] Comment on above: Performed By: #### T NS, PRBC #### [facility] [address] [address] [address] Benito To LYMPH # 1.1 103/ul Critically low 1.2-3.8 [facility] Comment on above: Performed By: #### T NS, PRBC #### [facility] [address] [place] [address] Dr. Benito To Lymphocytes/100 WBC (Bld) 13.8 % Critically low 20.5-60.0 [facility] Comment on above: Performed By: #### T NS, PRBC #### [facility] [address] [place] [address] Dr. Benito oT MANUAL DIFF REQ NO Normal [facility] Comment on above: Performed By: #### T NS, PRBC #### [facility] [address] [place] [address] Dr. Benito To MCH (RBC) [Entitic mass] 32.0 pg Normal 25.9-34.0 [facility] Comment on above: Performed By: #### T NS, PRBC #### [facility] [address] [place] [address] Dr. Benito To MCHC (RBC) [Mass/Vol] 31.8 g/dL Normal 29.9-35.2 [facility] Comment on above: Performed By: #### T NS, PRBC #### [facility] [address] [place] [address] Dr. Benito To MCV (RBC) [Entitic vol] 100.5 fL Critically high 80.0-94.0 [facility] Comment on above: Performed By: #### T NS, PRBC #### [facility] [address] [place] [address] Dr. Benito To MONO # 1.1 103/ul Critically high 0.3-0.8 [facility] Comment on above: Performed By: #### T NS, PRBC #### [facility] [address] [place] [address] Dr. Benito To Monocytes/100 WBC (Bld) 14.4 % Critically high 1.7-12.0 [facility] Comment on above: Performed By: #### T NS, PRBC #### [facility] [address] [place] [address] Dr. Benito To NEUT # 3.6 103/ul Normal 1.4-6.5 [facility] Comment on above: Performed By: #### T NS, PRBC #### [facility] [address] [place] [address] Dr. Benito To Neutrophils/100 WBC (Bld) 45.8 % Normal 43.0-75.0 [facility] Comment on above: Performed By: #### T NS, PRBC #### [facility] [address] [place] [address] Dr. Benito To Platelet mean volume (Bld) [Entitic vol] 0.0 fL Critically low 9.5-13.5 [facility] Comment on above: Performed By: #### T NS, PRBC #### [facility] [address] [place] [address] Dr. Benito To PLT 92 103/ul Critically low 150-450 [facility] Comment on above: Performed By: #### T NS, PRBC #### [facility] [address] [place] [address] Dr. Benito To RBC 2.19 106/ul Critically low 4.70-6.10 [facility] Comment on above: Performed By: #### T NS, PRBC #### [facility] [address] [place] [address] Dr. Benito To WBC 7.8 103/ul Normal 4.0-11.0 [facility] Comment on above: Performed By: #### T NS, PRBC #### [facility] [address] [place] [address] Dr. Benito To PROF 14(COMP METB)on 023 Albumin [Mass/Vol] 2.5 g/dL Critically low 3.4-5.0 [facility] Comment on above: Performed By: #### H GBHCT #### [facility] [address] [address] [address] Benito To Albumin/Globulin [Mass ratio] 0.6 {ratio} Normal [facility] Comment on above: Performed By: #### H GBHCT #### [facility] [address] [address] [address] Benito To ALP [Catalytic activity/Vol] 148 U/L Critically high 46-116 [facility] Comment on above: Performed By: #### H GBHCT #### [facility] [address] [address] [address] Benito To ALT [Catalytic activity/Vol] 61 U/L Normal 16-63 [facility] Comment on above: Performed By: #### H GBHCT #### [facility] [address] [place] [address] Dr. Benito To Anion gap [Moles/Vol] 8.5 mmol/L Normal [facility] Comment on above: Performed By: #### H GBHCT #### [facility] [address] [place] [address] Dr. Benito To AST [Catalytic activity/Vol] 43 U/L Critically high 15-37 [facility] Comment on above: Performed By: #### H GBHCT #### [facility] [address] [place] [address] Dr. Benito To Bilirubin [Mass/Vol] 0.8 mg/dL Normal 0.2-1.0 [facility] Comment on above: Performed By: #### H GBHCT #### [facility] [address] [place] [address] Dr. Benito To Calcium [Mass/Vol] 8.4 mg/dL Critically low 8.5-10.1 [facility] Comment on above: Performed By: #### H GBHCT #### [facility] [address] [place] [address] Dr. Benito To Chloride [Moles/Vol] 101 mmol/L Normal 98-107 [facility] Comment on above: Performed By: #### H GBHCT #### [facility] [address] [address] [address] Benito To CO2 [Moles/Vol] 37.8 mmol/L Critically high 21.0-32.0 [facility] Comment on above: Performed By: #### H GBHCT #### [facility] [address] [address] [address] Benito To Creatinine [Mass/Vol] 1.77 mg/dL Critically high 0.70-1.30 [facility] Comment on above: Performed By: #### H GBHCT #### [facility] [address] [address] [address] Benito To EGFR-AF OMANI 45 mL/min/1.73m2 Critically low >=60 [facility] Comment on above: Performed By: #### H GBHCT #### [facility] [address] [place] [address] Dr. Benito To EGFR-NON AF OMANI 37 mL/min/1.73m2 Critically low >=60 [facility] Comment on above: Performed By: #### H GBHCT #### [facility] [address] [address] [address] Benito To Globulin (S) [Mass/Vol] 4.3 g/dL Normal [facility] Comment on above: Performed By: #### H GBHCT #### [facility] [address] [place] [address] Dr. Benito To Glucose [Mass/Vol] 107 mg/dL Critically high 74-106 [facility] Comment on above: Performed By: #### H GBHCT #### [facility] [address] [place] [address] Dr. Benito To Potassium [Moles/Vol] 3.3 mmol/L Critically low 3.5-5.1 [facility] Comment on above: Performed By: #### H GBHCT #### [facility] [address] [place] [address] Dr. Benito To Protein [Mass/Vol] 6.8 g/dL Normal 6.4-8.2 [facility] Comment on above: Performed By: #### H GBHCT #### [facility] [address] [place] [address] Dr. Benito To Sodium [Moles/Vol] 144 mmol/L Normal 136-145 [facility] Comment on above: Performed By: #### H GBHCT #### [facility] [address] [place] [address] Dr. Benito To Urea nitrogen [Mass/Vol] 40.0 mg/dL Critically high 7.0-18.0 [facility] Comment on above: Performed By: #### H GBHCT #### [facility] [address] [place] [address] Dr. Benito To Urea nitrogen/Creatinine [Mass ratio] 22.6 mg/mg Normal [facility] Comment on above: Performed By: #### H GBHCT #### [facility] [address] [place] [address] Dr. Benito To BNPon 11-16-2022 Natriuretic peptide B (Bld) [Mass/Vol] 88880.0 pg/mL Critically high <=1,800.0 [facility] Comment on above: Performed By: #### T NS, PRBC #### [facility] [address] [place] [address] Dr. Benito To CBC AUTO DIFFon 11-16-2022 BASO # 0.1 103/ul Normal 0.0-0.1 [facility] Comment on above: Performed By: #### T NS, PRBC #### [facility] [address] [place] [address] Dr. Benito To Basophils/100 WBC (Bld) 0.6 % Normal 0.2-2.0 [facility] Comment on above: Performed By: #### T NS, PRBC #### [facility] [address] [place] [address] Dr. Benito To EO # 0.6 103/ul Normal 0.0-0.7 [facility] Comment on above: Performed By: #### T NS, PRBC #### [facility] [address] [place] [address] Dr. Benito To Eosinophils/100 WBC (Bld) 5.1 % Normal 0.9-7.0 [facility] Comment on above: Performed By: #### T NS, PRBC #### [facility] [address] [place] [address] Dr. Benito To Erythrocyte distribution width (RBC) [Ratio] 23.6 % Critically high 11.0-15.0 [facility] Comment on above: Performed By: #### T NS, PRBC #### [facility] [address] [place] [address] Dr. Benito To Hematocrit (Bld) [Volume fraction] 22.3 % Critically low 42.0-54.0 [facility] Comment on above: Performed By: #### T NS, PRBC #### [facility] [address] [place] [address] Dr. Benito To Hemoglobin (Bld) [Mass/Vol] 7.2 g/dL Critically low 14.0-18.0 [facility] Comment on above: Performed By: #### T NS, PRBC #### [facility] [address] [place] [address] Dr. Benito To IG # 1.56 10e3/ul Critically high 0.00-0.03 [facility] Comment on above: Performed By: #### T NS, PRBC #### [facility] [address] [place] [address] Dr. Benito To IG % 14.4 % Critically high 0.0-0.5 [facility] Comment on above: Performed By: #### T NS, PRBC #### [facility] Laboratory [address] [place] [address] Dr. Benito To LYMPH # 1.3 103/ul Normal 1.2-3.8 [facility] Comment on above: Performed By: #### T NS, PRBC #### [facility] [address] [place] [address] Dr. Benito To Lymphocytes/100 WBC (Bld) 12.1 % Critically low 20.5-60.0 [facility] Comment on above: Performed By: #### T NS, PRBC #### [facility] [address] [place] [address] Dr. Benito To MANUAL DIFF REQ NO Normal [facility] Comment on above: Performed By: #### T NS, PRBC #### [facility] [address] [place] [address] Dr. Benito To MCH (RBC) [Entitic mass] 32.4 pg Normal 25.9-34.0 [facility] Comment on above: Performed By: #### T NS, PRBC #### [facility] [address] [place] [address] Dr. Benito To MCHC (RBC) [Mass/Vol] 32.3 g/dL Normal 29.9-35.2 [facility] Comment on above: Performed By: #### T NS, PRBC #### [facility] [address] [place] [address] Dr. Benito To MCV (RBC) [Entitic vol] 100.5 fL Critically high 80.0-94.0 [facility] Comment on above: Performed By: #### T NS, PRBC #### [facility] [address] [place] [address] Dr. Benito To MONO # 1.7 103/ul Critically high 0.3-0.8 [facility] Comment on above: Performed By: #### T NS, PRBC #### [facility] [address] [place] [address] Dr. Benito To Monocytes/100 WBC (Bld) 15.3 % Critically high 1.7-12.0 [facility] Comment on above: Performed By: #### T NS, PRBC #### [facility] [address] [place] [address] Dr. Benito To NEUT # 5.7 103/ul Normal 1.4-6.5 [facility] Comment on above: Performed By: #### T NS, PRBC #### [facility] [address] [place] [address] Dr. Benito To Neutrophils/100 WBC (Bld) 52.5 % Normal 43.0-75.0 [facility] Comment on above: Performed By: #### T NS, PRBC #### [facility] [address] [address] [address] Benito oT Platelet mean volume (Bld) [Entitic vol] 0.0 fL Critically low 9.5-13.5 [facility] Comment on above: Performed By: #### T NS, PRBC #### [facility] [address] [address] [address] Benito To PLT 83 103/ul Critically low 150-450 [facility] Comment on above: Performed By: #### T NS, PRBC #### [facility] [address] [place] [address] Dr. Benito To RBC 2.22 106/ul Critically low 4.70-6.10 [facility] Comment on above: Performed By: #### T NS, PRBC #### [facility] [address] [place] [address] Dr. Benito To WBC 10.8 103/ul Normal 4.0-11.0 [facility] Comment on above: Performed By: #### T NS, PRBC #### [facility] [address] [place] [address] Dr. Benito To PROF 14(COMP METB)on 023 Albumin [Mass/Vol] 2.5 g/dL Critically low 3.4-5.0 [facility] Comment on above: Performed By: #### T NS, PRBC #### [facility] [address] [place] [address] Dr. Benito To Albumin/Globulin [Mass ratio] 0.6 {ratio} Normal [facility] Comment on above: Performed By: #### T NS, PRBC #### [facility] [address] [place] [address] Dr. Benito To ALP [Catalytic activity/Vol] 133 U/L Critically high 46-116 [facility] Comment on above: Performed By: #### T NS, PRBC #### [facility] [address] [place] [address] Dr. Benito To ALT [Catalytic activity/Vol] 56 U/L Normal 16-63 [facility] Comment on above: Performed By: #### T NS, PRBC #### [facility] [address] [place] [address] Dr. Benito To Anion gap [Moles/Vol] 11.8 mmol/L Normal [facility] Comment on above: Performed By: #### T NS, PRBC #### [facility] [address] [place] [address] Dr. Benito To AST [Catalytic activity/Vol] 35 U/L Normal 15-37 [facility] Comment on above: Performed By: #### T NS, PRBC #### [facility] [address] [place] [address] Dr. Benito To Bilirubin [Mass/Vol] 0.9 mg/dL Normal 0.2-1.0 [facility] Comment on above: Performed By: #### T NS, PRBC #### [facility] [address] [place] [address] Dr. Benito To Calcium [Mass/Vol] 8.4 mg/dL Critically low 8.5-10.1 [facility] Comment on above: Performed By: #### T NS, PRBC #### [facility] [address] [place] [address] Dr. Benito To Chloride [Moles/Vol] 101 mmol/L Normal 98-107 [facility] Comment on above: Performed By: #### T NS, PRBC #### [facility] [address] [place] [address] Dr. Benito To CO2 [Moles/Vol] 32.2 mmol/L Critically high 21.0-32.0 [facility] Comment on above: Performed By: #### T NS, PRBC #### [facility] [address] [place] [address] Dr. Benito To Creatinine [Mass/Vol] 1.89 mg/dL Critically high 0.70-1.30 [facility] Comment on above: Performed By: #### T NS, PRBC #### [facility] [address] [place] [address] Dr. Benito To EGFR-AF OMANI 41 mL/min/1.73m2 Critically low >=60 [facility] Comment on above: Performed By: #### T NS, PRBC #### [facility] [address] [address] [address] Benito To EGFR-NON AF OMANI 34 mL/min/1.73m2 Critically low >=60 [facility] Comment on above: Performed By: #### T NS, PRBC #### [facility] [address] [address] [address] Benito To Globulin (S) [Mass/Vol] 4.5 g/dL Normal [facility] Comment on above: Performed By: #### T NS, PRBC #### [facility] [address] [place] [address] Dr. Benito To Glucose [Mass/Vol] 105 mg/dL Normal 74-106 [facility] Comment on above: Performed By: #### T NS, PRBC #### [facility] [address] [place] [address] Dr. Benito To Potassium [Moles/Vol] 2.9 mmol/L Critically low 3.5-5.1 [facility] Comment on above: Performed By: #### T NS, PRBC #### [facility] [address] [place] [address] Dr. Benito To Protein [Mass/Vol] 7.0 g/dL Normal 6.4-8.2 [facility] Comment on above: Performed By: #### T NS, PRBC #### [facility] [address] [place] [address] Dr. Benito To Sodium [Moles/Vol] 140 mmol/L Normal 136-145 [facility] Comment on above: Performed By: #### T NS, PRBC #### [facility] [address] [place] [address] Dr. Benito To Urea nitrogen [Mass/Vol] 39.0 mg/dL Critically high 7.0-18.0 [facility] Comment on above: Performed By: #### T NS, PRBC #### [facility] [address] [place] [address] Dr. Benito To Urea nitrogen/Creatinine [Mass ratio] 20.6 mg/mg Normal [facility] Comment on above: Performed By: #### T NS, PRBC #### [facility] [address] [place] [address] Dr. Benito To XR CHEST 1 Von [...] JOSIE MIRAMONTES Date: 2022-11-16 13:55 Normal [facility] CBC W MANUAL DIFFon 11-16-19 23 ANISOCYTOSIS 3+ Normal [facility] Comment on above: Performed By: #### T NS, PRBC #### [facility] [address] [place] [address] Dr. Benito To ATYPICAL LYMPH # 0.71 103/ul Normal [facility] Comment on above: Performed By: #### T NS, PRBC #### [facility] [address] [place] [address] Dr. Benito To ATYPICAL LYMPH % 6 % Normal [facility] Comment on above: Performed By: #### T NS, PRBC #### [facility] [address] [place] [address] Dr. Benito To BAND # 1.3 103/ul Critically high 0.0-0.3 [facility] Comment on above: Performed By: #### T NS, PRBC #### [facility] [address] [place] [address] Dr. Benito To BAND % 11 % Critically high 0-5 [facility] Comment on above: Performed By: #### T NS, PRBC #### [facility] [address] [address] [address] Benito To BASOM # 0.00 103/ul Normal 0.00-0.10 [facility] Comment on above: Performed By: #### T NS, PRBC #### [facility] [address] [place] [address] Dr. Benito To BASOM % 0.0 % Critically low 0.2-2.0 [facility] Comment on above: Performed By: #### T NS, PRBC #### [facility] [address] [place] [address] Dr. Benito To BLAST # Normal [facility] Comment on above: Performed By: #### T NS, PRBC #### [facility] [address] [place] [address] Dr. Benito To BLAST % Normal [facility] Comment on above: Performed By: #### T NS, PRBC #### [facility] [address] [place] [address] Dr. Benito To CORRECTED WBC Normal 4.0-11.0 [facility] Comment on above: Performed By: #### T NS, PRBC #### [facility] [address] [place] [address] Dr. Benito To EOS # 0.00 103/ul Normal 0.00-0.70 [facility] Comment on above: Performed By: #### T NS, PRBC #### [facility] [address] [place] [address] Dr. Benito To EOS% 0.0 % Critically low 0.9-7.0 [facility] Comment on above: Performed By: #### T NS, PRBC #### [facility] [address] [place] [address] Dr. Benito To HCT 24.3 % Critically low 42.0-54.0 [facility] Comment on above: Performed By: #### T NS, PRBC #### [facility] [address] [place] [address] Dr. Benito To HGB 7.5 g/dl Critically low 14.0-18.0 [facility] Comment on above: Performed By: #### T NS, PRBC #### [facility] [address] [place] [address] Dr. Benito To LYMPHM # 1.55 103/ul Normal 1.20-3.80 [facility] Comment on above: Performed By: #### T NS, PRBC #### [facility] [address] [place] [address] Dr. Benito To LYMPHM% 13.0 % Critically low 20.5-60.0 [facility] Comment on above: Performed By: #### T NS, PRBC #### [facility] [address] [place] [address] Dr. Benito To MCH 30.9 pg Normal 25.9-34.0 [facility] Comment on above: Performed By: #### T NS, PRBC #### [facility] [address] [place] [address] Dr. Benito To MCHC 30.9 g/dl Normal 29.9-35.2 [facility] Comment on above: Performed By: #### T NS, PRBC #### [facility] [address] [place] [address] Dr. Benito To MCV 100.0 fL Critically high 80.0-94.0 [facility] Comment on above: Performed By: #### T NS, PRBC #### [facility] [address] [place] [address] Dr. Benito To METAMYELOCYTE # Normal [facility] Comment on above: Performed By: #### T NS, PRBC #### [facility] [address] [place] [address] Dr. Benito To METAMYELOCYTE % Normal [facility] Comment on above: Performed By: #### T NS, PRBC #### [facility] [address] [place] [address] Dr. Benito To MONOM# 0.59 103/ul Normal 0.30-0.80 [facility] Comment on above: Performed By: #### T NS, PRBC #### [facility] [address] [address] [address] Benito To MONOM% 5.0 % Normal 1.7-12.0 [facility] Comment on above: Performed By: #### T NS, PRBC #### [facility] [address] [address] [address] Benito To MPV 0.0 fL Critically low 9.5-13.5 [facility] Comment on above: Performed By: #### T NS, PRBC #### [facility] [address] [place] [address] Dr. Benito To MYELOCYTE # 0.2 103/ul Normal [facility] Comment on above: Performed By: #### T NS, PRBC #### [facility] [address] [place] [address] Dr. Benito To MYELOCYTE % 2 % Normal [facility] Comment on above: Performed By: #### T NS, PRBC #### [facility] [address] [place] [address] Dr. Benito To NRBC Normal [facility] Comment on above: Performed By: #### T NS, PRBC #### [facility] [address] [place] [address] Dr. Benito To PLT 83 103/ul Critically low 150-450 [facility] Comment on above: Performed By: #### T NS, PRBC #### [facility] [address] [place] [address] Dr. Benito To RBC 2.43 106/ul Critically low 4.70-6.10 [facility] Comment on above: Performed By: #### T NS, PRBC #### [facility] [address] [place] [address] Dr. Benito To RDW 23.9 % Critically high 11.0-15.0 [facility] Comment on above: Performed By: #### T NS, PRBC #### [facility] [address] [place] [address] Dr. Benito To SEG # 7.50 103/ul Critically high 1.40-6.50 [facility] Comment on above: Performed By: #### T NS, PRBC #### [facility] [address] [place] [address] Dr. Benito To SEG % 63.0 % Normal 43.0-75.0 [facility] Comment on above: Performed By: #### T NS, PRBC #### [facility] [address] [place] [address] Dr. Benito To WBC 11.9 103/ul Critically high 4.0-11.0 [facility] Comment on above: Performed By: #### T NS, PRBC #### [facility] [address] [place] [address] Dr. Benito To PROF 14(COMP METB)on 023 Albumin [Mass/Vol] 2.6 g/dL Critically low 3.4-5.0 [facility] Comment on above: Performed By: #### T NS, PRBC #### [facility] [address] [place] [address] Dr. Benito To Albumin/Globulin [Mass ratio] 0.6 {ratio} Normal [facility] Comment on above: Performed By: #### T NS, PRBC #### [facility] [address] [place] [address] Dr. Benito To ALP [Catalytic activity/Vol] 139 U/L Critically high 46-116 [facility] Comment on above: Performed By: #### T NS, PRBC #### [facility] [address] [place] [address] Dr. Benito To ALT [Catalytic activity/Vol] 52 U/L Normal 16-63 [facility] Comment on above: Performed By: #### T NS, PRBC #### [facility] [address] [place] [address] Dr. Benito To Anion gap [Moles/Vol] 12.4 mmol/L Normal [facility] Comment on above: Performed By: #### T NS, PRBC #### [facility] [address] [place] [address] Dr. Benito To AST [Catalytic activity/Vol] 31 U/L Normal 15-37 [facility] Comment on above: Performed By: #### T NS, PRBC #### [facility] [address] [place] [address] Dr. Benito To Bilirubin [Mass/Vol] 1.3 mg/dL Critically high 0.2-1.0 [facility] Comment on above: Performed By: #### T NS, PRBC #### [facility] [address] [place] [address] Dr. Benito To Calcium [Mass/Vol] 8.2 mg/dL Critically low 8.5-10.1 [facility] Comment on above: Performed By: #### T NS, PRBC #### [facility] [address] [place] [address] Dr. Benito To Chloride [Moles/Vol] 100 mmol/L Normal 98-107 [facility] Comment on above: Performed By: #### T NS, PRBC #### [facility] [address] [place] [address] Dr. Benito To CO2 [Moles/Vol] 32.5 mmol/L Critically high 21.0-32.0 [facility] Comment on above: Performed By: #### T NS, PRBC #### [facility] [address] [place] [address] Dr. Benito To Creatinine [Mass/Vol] 1.85 mg/dL Critically high 0.70-1.30 [facility] Comment on above: Performed By: #### T NS, PRBC #### [facility] [address] [place] [address] Dr. Benito To EGFR-AF OMANI 43 mL/min/1.73m2 Critically low >=60 [facility] Comment on above: Performed By: #### T NS, PRBC #### [facility] [address] [place] [address] Dr. Benito To EGFR-NON AF OMANI 35 mL/min/1.73m2 Critically low >=60 [facility] Comment on above: Performed By: #### T NS, PRBC #### [facility] [address] [place] [address] Dr. Benito To Globulin (S) [Mass/Vol] 4.6 g/dL Normal [facility] Comment on above: Performed By: #### T NS, PRBC #### [facility] [address] [place] [address] Dr. Benito To Glucose [Mass/Vol] 124 mg/dL Critically high 74-106 [facility] Comment on above: Performed By: #### T NS, PRBC #### [facility] [address] [place] [address] Dr. Benito To Potassium [Moles/Vol] 3.9 mmol/L Normal 3.5-5.1 [facility] Comment on above: Performed By: #### T NS, PRBC #### [facility] [address] [place] [address] Dr. Benito To Protein [Mass/Vol] 7.2 g/dL Normal 6.4-8.2 [facility] Comment on above: Performed By: #### T NS, PRBC #### [facility] [address] [place] [address] Dr. Benito To Sodium [Moles/Vol] 141 mmol/L Normal 136-145 [facility] Comment on above: Performed By: #### T NS, PRBC #### [facility] [address] [place] [address] Dr. Benito To Urea nitrogen [Mass/Vol] 36.0 mg/dL Critically high 7.0-18.0 [facility] Comment on above: Performed By: #### T NS, PRBC #### [facility] [address] [place] [address] Dr. Benito To Urea nitrogen/Creatinine [Mass ratio] 19.5 mg/mg Normal [facility] Comment on above: Performed By: #### T NS, PRBC #### [facility] [address] [place] [address] Dr. Benito To XR CHEST 1 Von [...] JOSIE MIRAMONTES Date: 2022-11-15 09:46 Normal [facility] CBC AUTO DIFFon 11-14-2022 BASO # 0.0 103/ul Normal 0.0-0.1 [facility] Comment on above: Performed By: #### H GBHCT #### [facility] [address] [address] [address] Benito To Basophils/100 WBC (Bld) 0.3 % Normal 0.2-2.0 [facility] Comment on above: Performed By: #### H GBHCT #### [facility] [address] [place] [address] Dr. Benito To EO # 0.0 103/ul Normal 0.0-0.7 [facility] Comment on above: Performed By: #### H GBHCT #### [facility] [address] [address] [address] Benito To Eosinophils/100 WBC (Bld) 0.3 % Critically low 0.9-7.0 [facility] Comment on above: Performed By: #### H GBHCT #### [facility] [address] [place] [address] Dr. Benito To Erythrocyte distribution width (RBC) [Ratio] 23.7 % Critically high 11.0-15.0 [facility] Comment on above: Performed By: #### H GBHCT #### [facility] [address] [address] [address] Benito To Hematocrit (Bld) [Volume fraction] 23.7 % Critically low 42.0-54.0 [facility] Comment on above: Performed By: #### H GBHCT #### [facility] [address] [place] [address] Dr. Benito To Hemoglobin (Bld) [Mass/Vol] 7.6 g/dL Critically low 14.0-18.0 [facility] Comment on above: Performed By: #### H GBHCT #### [facility] [address] [place] [address] Dr. Benito To IG # 0.82 10e3/ul Critically high 0.00-0.03 [facility] Comment on above: Performed By: #### H GBHCT #### [facility] [address] [place] [address] Dr. Benito To IG % 7.0 % Critically high 0.0-0.5 [facility] Comment on above: Performed By: #### H GBHCT #### [facility] [address] [place] [address] Dr. Benito To LYMPH # 0.8 103/ul Critically low 1.2-3.8 [facility] Comment on above: Performed By: #### H GBHCT #### [facility] [address] [place] [address] Dr. Benito To Lymphocytes/100 WBC (Bld) 7.0 % Critically low 20.5-60.0 [facility] Comment on above: Performed By: #### H GBHCT #### [facility] [address] [place] [address] Dr. Benito To MANUAL DIFF REQ NO Normal [facility] Comment on above: Performed By: #### H GBHCT #### [facility] [address] [place] [address] Dr. Benito To MCH (RBC) [Entitic mass] 31.9 pg Normal 25.9-34.0 [facility] Comment on above: Performed By: #### H GBHCT #### [facility] [address] [place] [address] Dr. Benito To MCHC (RBC) [Mass/Vol] 32.1 g/dL Normal 29.9-35.2 [facility] Comment on above: Performed By: #### H GBHCT #### [facility] [address] [address] [address] Benito To MCV (RBC) [Entitic vol] 99.6 fL Critically high 80.0-94.0 [facility] Comment on above: Performed By: #### H GBHCT #### [facility] [address] [address] [address] Benito To MONO # 2.3 103/ul Critically high 0.3-0.8 [facility] Comment on above: Performed By: #### H GBHCT #### [facility] [address] [address] [address] Benito To Monocytes/100 WBC (Bld) 19.2 % Critically high 1.7-12.0 [facility] Comment on above: Performed By: #### H GBHCT #### [facility] [address] [place] [address] Dr. Benito To NEUT # 7.8 103/ul Critically high 1.4-6.5 [facility] Comment on above: Performed By: #### H GBHCT #### [facility] [address] [place] [address] Dr. Benito To Neutrophils/100 WBC (Bld) 66.2 % Normal 43.0-75.0 [facility] Comment on above: Performed By: #### H GBHCT #### [facility] [address] [place] [address] Dr. Benito To Platelet mean volume (Bld) [Entitic vol] 14.7 fL Critically high 9.5-13.5 [facility] Comment on above: Performed By: #### H GBHCT #### [facility] [address] [address] [address] Benito To PLT 73 103/ul Critically low 150-450 [facility] Comment on above: Performed By: #### H GBHCT #### [facility] [address] [place] [address] Dr. Benito To RBC 2.38 106/ul Critically low 4.70-6.10 [facility] Comment on above: Performed By: #### H GBHCT #### [facility] [address] [place] [address] Dr. Benito To WBC 11.7 103/ul Critically high 4.0-11.0 [facility] Comment on above: Performed By: #### H GBHCT #### [facility] [address] [place] [address] Dr. Benito To CBC W MANUAL DIFFon 11-15-19 ANISOCYTOSIS 3+ Normal [facility] Comment on above: Performed By: #### T NS, PRBC #### [facility] [address] [place] [address] Dr. Benito To ATYPICAL LYMPH # Normal [facility] Comment on above: Performed By: #### T NS, PRBC #### [facility] [address] [place] [address] Dr. Benito To ATYPICAL LYMPH % Normal [facility] Comment on above: Performed By: #### T NS, PRBC #### [facility] [address] [place] [address] Dr. Benito To BAND # 0.2 103/ul Normal 0.0-0.3 [facility] Comment on above: Performed By: #### T NS, PRBC #### [facility] [address] [place] [address] Dr. Benito To BAND % 2 % Normal 0-5 [facility] Comment on above: Performed By: #### T NS, PRBC #### [facility] [address] [place] [address] Dr. Benito To BASOM # 0.00 103/ul Normal 0.00-0.10 [facility] Comment on above: Performed By: #### T NS, PRBC #### [facility] [address] [place] [address] Dr. Benito To BASOM % 0.0 % Critically low 0.2-2.0 [facility] Comment on above: Performed By: #### T NS, PRBC #### [facility] [address] [place] [address] Dr. Benito To BLAST # Normal [facility] Comment on above: Performed By: #### T NS, PRBC #### [facility] [address] [place] [address] Dr. Benito To BLAST % Normal [facility] Comment on above: Performed By: #### T NS, PRBC #### [facility] [address] [place] [address] Dr. Benito To CORRECTED WBC Normal 4.0-11.0 [facility] Comment on above: Performed By: #### T NS, PRBC #### [facility] [address] [address] [address] Benito To EOS # 0.00 103/ul Normal 0.00-0.70 [facility] Comment on above: Performed By: #### T NS, PRBC #### [facility] [address] [place] [address] Dr. Benito To EOS% 0.0 % Critically low 0.9-7.0 [facility] Comment on above: Performed By: #### T NS, PRBC #### [facility] [address] [place] [address] Dr. Benito To HCT 20.3 % Critically low 42.0-54.0 [facility] Comment on above: Performed By: #### T NS, PRBC #### [facility] [address] [place] [address] Dr. Benito To HGB 6.4 g/dl Critically low 14.0-18.0 [facility] Comment on above: Performed By: #### T NS, PRBC #### [facility] [address] [place] [address] Dr. Benito To LYMPHM # 1.13 103/ul Critically low 1.20-3.80 [facility] Comment on above: Performed By: #### T NS, PRBC #### [facility] [address] [place] [address] Dr. Benito To LYMPHM% 10.0 % Critically low 20.5-60.0 [facility] Comment on above: Performed By: #### T NS, PRBC #### [facility] [address] [address] [address] Benito To MCH 31.5 pg Normal 25.9-34.0 [facility] Comment on above: Performed By: #### T NS, PRBC #### [facility] [address] [address] [address] Benito To MCHC 31.5 g/dl Normal 29.9-35.2 [facility] Comment on above: Performed By: #### T NS, PRBC #### [facility] [address] [place] [address] Dr. Benito To MCV 100.0 fL Critically high 80.0-94.0 [facility] Comment on above: Performed By: #### T NS, PRBC #### [facility] [address] [place] [address] Dr. Benito To METAMYELOCYTE # 0.5 103/ul Normal [facility] Comment on above: Performed By: #### T NS, PRBC #### [facility] [address] [place] [address] Dr. Benito To METAMYELOCYTE % 4 % Normal [facility] Comment on above: Performed By: #### T NS, PRBC #### [facility] [address] [place] [address] Dr. Benito To MICROCYTOSIS 1+ Normal [facility] Comment on above: Performed By: #### T NS, PRBC #### [facility] [address] [place] [address] Dr. Benito To MONOM# 0.90 103/ul Critically high 0.30-0.80 [facility] Comment on above: Performed By: #### T NS, PRBC #### [facility] [address] [place] [address] Dr. Benito To MONOM% 8.0 % Normal 1.7-12.0 [facility] Comment on above: Performed By: #### T NS, PRBC #### [facility] [address] [place] [address] Dr. Benito To MYELOCYTE # Normal [facility] Comment on above: Performed By: #### T NS, PRBC #### [facility] [address] [address] [address] Benito To MYELOCYTE % Normal [facility] Comment on above: Performed By: #### T NS, PRBC #### [facility] [address] [address] [address] Benito To NRBC Normal [facility] Comment on above: Performed By: #### T NS, PRBC #### [facility] [address] [address] [address] Benito To PLT 78 103/ul Critically low 150-450 [facility] Comment on above: Performed By: #### T NS, PRBC #### [facility] [address] [place] [address] Dr. Benito To RBC 2.03 106/ul Critically low 4.70-6.10 [facility] Comment on above: Performed By: #### T NS, PRBC #### [facility] [address] [place] [address] Dr. Benito To RDW 25.1 % Critically high 11.0-15.0 [facility] Comment on above: Performed By: #### T NS, PRBC #### [facility] [address] [place] [address] Dr. Benito To SEG # 8.59 103/ul Critically high 1.40-6.50 [facility] Comment on above: Performed By: #### T NS, PRBC #### [facility] [address] [place] [address] Dr. Benito To SEG % 76.0 % Critically high 43.0-75.0 [facility] Comment on above: Performed By: #### T NS, PRBC #### [facility] [address] [place] [address] Dr. Benito To WBC 11.3 103/ul Critically high 4.0-11.0 [facility] Comment on above: Performed By: #### T NS, PRBC #### [facility] [address] [place] [address] Dr. Benito To ECHOCARDIO M/2D COMPLETEon 0 11-14-2022 ECHOCARDIO M/2D COMPLETE Patient: SANDIP BROUSSARD Exam Date: 11/14/2022 : 1940 Gender:M Ordering : DR FLASH PEARL . Admission #: [id number] Family : Order #: [id number] CLICK HERE TO VIEW EXAM ECHOCARDIOGRAM REPORT [...] Sheng Gomez M.D. on 11/14/2022 at 20:08 [facility] PRBC LEUKOREDUCEDon 11-15-19 23 ABO and Rh group Nom (Bld) Cross Match Result Compatible Unit Blood Type A Pos Unit Number [id number] Status Information Issued Product ID Red Blood Cells Product Code [id number] Issue Date/Time [id number] [facility] Comment on above: Performed By: #### P RBC, TNS #### [facility] [address] [place] [address] Dr. Benito To PROF 14(COMP METB)on 04-20-2 023 Albumin [Mass/Vol] 2.8 g/dL Critically low 3.4-5.0 [facility] Comment on above: Performed By: #### H H #### [facility] [address] [place] [address] Dr. Benito To Albumin/Globulin [Mass ratio] 0.6 {ratio} Normal [facility] Comment on above: Performed By: #### H H #### [facility] [address] [place] [address] Dr. Benito To ALP [Catalytic activity/Vol] 146 U/L Critically high 46-116 [facility] Comment on above: Performed By: #### H H #### [facility] [address] [place] [address] Dr. Benito To ALT [Catalytic activity/Vol] 55 U/L Normal 16-63 [facility] Comment on above: Performed By: #### H H #### [facility] [address] [place] [address] Dr. Benito To Anion gap [Moles/Vol] 12.9 mmol/L Normal [facility] Comment on above: Performed By: #### H H #### [facility] [address] [place] [address] Dr. Benito To AST [Catalytic activity/Vol] 30 U/L Normal 15-37 [facility] Comment on above: Performed By: #### H H #### [facility] [address] [place] [address] Dr. Benito To Bilirubin [Mass/Vol] 1.3 mg/dL Critically high 0.2-1.0 [facility] Comment on above: Performed By: #### H H #### [facility] [address] [place] [address] Dr. Benito To Calcium [Mass/Vol] 8.6 mg/dL Normal 8.5-10.1 [facility] Comment on above: Performed By: #### H H #### [facility] [address] [place] [address] Dr. Benito To Chloride [Moles/Vol] 103 mmol/L Normal 98-107 [facility] Comment on above: Performed By: #### H H #### [facility] [address] [address] [address] Benito To CO2 [Moles/Vol] 32.2 mmol/L Critically high 21.0-32.0 [facility] Comment on above: Performed By: #### H H #### [facility] [address] [address] [address] Benito To Creatinine [Mass/Vol] 1.87 mg/dL Critically high 0.70-1.30 [facility] Comment on above: Performed By: #### H H #### [facility] [address] [address] [address] Benito To EGFR-AF OMANI 42 mL/min/1.73m2 Critically low >=60 [facility] Comment on above: Performed By: #### H H #### [facility] [address] [address] [address] Benito To EGFR-NON AF OMANI 35 mL/min/1.73m2 Critically low >=60 [facility] Comment on above: Performed By: #### H H #### [facility] [address] [address] [address] Benito To Globulin (S) [Mass/Vol] 4.6 g/dL Normal [facility] Comment on above: Performed By: #### H H #### [facility] [address] [address] [address] Benito To Glucose [Mass/Vol] 113 mg/dL Critically high 74-106 [facility] Comment on above: Performed By: #### H H #### [facility] [address] [address] [address] Benito To Potassium [Moles/Vol] 4.1 mmol/L Normal 3.5-5.1 [facility] Comment on above: Performed By: #### H H #### [facility] [address] [address] [address] Benito To Protein [Mass/Vol] 7.4 g/dL Normal 6.4-8.2 [facility] Comment on above: Performed By: #### H H #### [facility] [address] [place] [address] Dr. Benito To Sodium [Moles/Vol] 144 mmol/L Normal 136-145 [facility] Comment on above: Performed By: #### H H #### [facility] [address] [place] [address] Dr. Benito To Urea nitrogen [Mass/Vol] 39.0 mg/dL Critically high 7.0-18.0 [facility] Comment on above: Performed By: #### H H #### [facility] [address] [place] [address] Dr. Benito To Urea nitrogen/Creatinine [Mass ratio] 20.9 mg/mg Normal [facility] Comment on above: Performed By: #### H H #### [facility] [address] [place] [address] Dr. Benito To BNPon 11-13-2022 Natriuretic peptide B (Bld) [Mass/Vol] 5483.0 pg/mL Critically high <=1,800.0 [facility] Comment on above: Performed By: #### H GBHCT #### [facility] [address] [place] [address] Dr. Benito To CBC W MANUAL DIFFon 11-14-19 23 ANISOCYTOSIS SLIGHT Normal [facility] Comment on above: Performed By: #### T NS, PRBC #### [facility] [address] [place] [address] Dr. Benito To ATYPICAL LYMPH # Normal [facility] Comment on above: Performed By: #### T NS, PRBC #### [facility] [address] [place] [address] Dr. Benito To ATYPICAL LYMPH % Normal [facility] Comment on above: Performed By: #### T NS, PRBC #### [facility] [address] [place] [address] Dr. Benito To BAND # 0.2 103/ul Normal 0.0-0.3 [facility] Comment on above: Performed By: #### T NS, PRBC #### [facility] [address] [place] [address] Dr. Benito To BAND % 2 % Normal 0-5 [facility] Comment on above: Performed By: #### T NS, PRBC #### [facility] [address] [place] [address] Dr. Benito To BASOM # 0.00 103/ul Normal 0.00-0.10 [facility] Comment on above: Performed By: #### T NS, PRBC #### [facility] [address] [place] [address] Dr. Benito To BASOM % 0.0 % Critically low 0.2-2.0 [facility] Comment on above: Performed By: #### T NS, PRBC #### [facility] [address] [place] [address] Dr. Benito To BLAST # Normal [facility] Comment on above: Performed By: #### T NS, PRBC #### [facility] [address] [place] [address] Dr. Benito To BLAST % Normal [facility] Comment on above: Performed By: #### T NS, PRBC #### [facility] [address] [place] [address] Dr. Benito To CORRECTED WBC Normal 4.0-11.0 [facility] Comment on above: Performed By: #### T NS, PRBC #### [facility] [address] [place] [address] Dr. Benito To EOS # 0.00 103/ul Normal 0.00-0.70 [facility] Comment on above: Performed By: #### T NS, PRBC #### [facility] [address] [place] [address] Dr. Benito To EOS% 0.0 % Critically low 0.9-7.0 [facility] Comment on above: Performed By: #### T NS, PRBC #### [facility] [address] [place] [address] Dr. Benito To HCT 23.1 % Critically low 42.0-54.0 [facility] Comment on above: Performed By: #### T NS, PRBC #### [facility] [address] [address] [address] Benito To HGB 7.2 g/dl Critically low 14.0-18.0 [facility] Comment on above: Performed By: #### T NS, PRBC #### [facility] [address] [place] [address] Dr. Benito To LYMPHM # 1.38 103/ul Normal 1.20-3.80 [facility] Comment on above: Performed By: #### T NS, PRBC #### [facility] [address] [place] [address] Dr. Benito To LYMPHM% 13.0 % Critically low 20.5-60.0 [facility] Comment on above: Performed By: #### T NS, PRBC #### [facility] [address] [place] [address] Dr. Benito To MACROCYTOSIS SLIGHT Normal [facility] Comment on above: Performed By: #### T NS, PRBC #### [facility] [address] [place] [address] Dr. Benito To MCH 32.0 pg Normal 25.9-34.0 [facility] Comment on above: Performed By: #### T NS, PRBC #### [facility] [address] [place] [address] Dr. Benito To MCHC 31.2 g/dl Normal 29.9-35.2 [facility] Comment on above: Performed By: #### T NS, PRBC #### [facility] [address] [place] [address] Dr. Benito To MCV 102.7 fL Critically high 80.0-94.0 [facility] Comment on above: Performed By: #### T NS, PRBC #### [facility] [address] [place] [address] Dr. Benito To METAMYELOCYTE # Normal [facility] Comment on above: Performed By: #### T NS, PRBC #### [facility] [address] [place] [address] Dr. Benito To METAMYELOCYTE % Normal [facility] Comment on above: Performed By: #### T NS, PRBC #### [facility] [address] [place] [address] Dr. Benito To MONOM# 0.74 103/ul Normal 0.30-0.80 [facility] Comment on above: Performed By: #### T NS, PRBC #### [facility] [address] [place] [address] Dr. Benito To MONOM% 7.0 % Normal 1.7-12.0 [facility] Comment on above: Performed By: #### T NS, PRBC #### [facility] [address] [place] [address] Dr. Benito To MPV 0.0 fL Critically low 9.5-13.5 [facility] Comment on above: Performed By: #### T NS, PRBC #### [facility] [address] [place] [address] Dr. Benito To MYELOCYTE # 0.1 103/ul Normal [facility] Comment on above: Performed By: #### T NS, PRBC #### [facility] [address] [place] [address] Dr. Benito To MYELOCYTE % 1 % Normal [facility] Comment on above: Performed By: #### T NS, PRBC #### [facility] [address] [place] [address] Dr. Benito To NRBC Normal [facility] Comment on above: Performed By: #### T NS, PRBC #### [facility] [address] [place] [address] Dr. Benito To PLT 67 103/ul Critically low 150-450 [facility] Comment on above: Performed By: #### T NS, PRBC #### [facility] [address] [place] [address] Dr. Benito To RBC 2.25 106/ul Critically low 4.70-6.10 [facility] Comment on above: Performed By: #### T NS, PRBC #### [facility] [address] [place], [place] [address] Dr. Benito To RDW 25.2 % Critically high 11.0-15.0 [facility] Comment on above: Performed By: #### T NS, PRBC #### [facility] [address] [place], [place] [address] Dr. Benito To SEG # 8.16 103/ul Critically high 1.40-6.50 [facility] Comment on above: Performed By: #### T NS, PRBC #### [facility] [address] [address] [address] Benito To SEG % 77.0 % Critically high 43.0-75.0 [facility] Comment on above: Performed By: #### T NS, PRBC #### [facility] [address] [address] [address] Benito To WBC 10.6 103/ul Normal 4.0-11.0 [facility] Comment on above: Performed By: #### T NS, PRBC #### [facility] [address] [address] [address] Benito To CNPNon 11-13-2022 CNPN Normal [facility] Covid-19 PCR ([facility])on 10-26 SARS-CoV-2 (COVID-19) RNA JOSSIE+probe Ql (Unsp spec) Not detected Normal NOT DETECTED [facility] Comment on above: Result Comment: When diagnostic [...] for this test is supported by the Medicare Sales Representative of Health and Human Service's declaration that [...] Performed By: #### T NS, PRBC #### [facility] [address] [place] [address] Dr. Benito To FERRITINon 11-13-2022 Ferritin [Mass/Vol] 6375.0 ng/mL Critically high 26.0-388. 0 [facility] Comment on above: Performed By: #### T NS, PRBC #### [facility] [address] [place] [address] Dr. Benito To IRON AND TIBCon 11-13-2022 Iron [Mass/Vol] 148.0 ug/dL Normal 65.0-175.0 [facility] Comment on above: Performed By: #### T NS, PRBC #### [facility] [address] [place] [address] Dr. Benito To TIBC DIRECT 145.0 ug/dL Critically low 250.0-450.0 [facility] Comment on above: Performed By: #### T NS, PRBC #### [facility] [address] [place] [address] Dr. Benito To PROF 14(COMP METB)on 023 Albumin [Mass/Vol] 2.7 g/dL Critically low 3.4-5.0 [facility] Comment on above: Performed By: #### H GBHCT #### [facility] [address] [place] [address] Dr. Benito To Albumin/Globulin [Mass ratio] 0.6 {ratio} Normal [facility] Comment on above: Performed By: #### H GBHCT #### [facility] [address] [place] [address] Dr. Benito To ALP [Catalytic activity/Vol] 140 U/L Critically high 46-116 [facility] Comment on above: Performed By: #### H GBHCT #### [facility] [address] [place] [address] Dr. Benito To ALT [Catalytic activity/Vol] 53 U/L Normal 16-63 [facility] Comment on above: Performed By: #### H GBHCT #### [facility] [address] [address] [address] Benito To Anion gap [Moles/Vol] 14.4 mmol/L Normal [facility] Comment on above: Performed By: #### H GBHCT #### [facility] [address] [address] [address] Benito To AST [Catalytic activity/Vol] 31 U/L Normal 15-37 [facility] Comment on above: Performed By: #### H GBHCT #### [facility] [address] [address] [address] Benito To Bilirubin [Mass/Vol] 1.3 mg/dL Critically high 0.2-1.0 [facility] Comment on above: Performed By: #### H GBHCT #### [facility] [address] [address] [address] Benito To Calcium [Mass/Vol] 8.8 mg/dL Normal 8.5-10.1 [facility] Comment on above: Performed By: #### H GBHCT #### [facility] [address] [address] [address] Benito To Chloride [Moles/Vol] 103 mmol/L Normal 98-107 [facility] Comment on above: Performed By: #### H GBHCT #### [facility] [address] [address] [address] Bentio To CO2 [Moles/Vol] 29.7 mmol/L Normal 21.0-32.0 [facility] Comment on above: Performed By: #### H GBHCT #### [facility] [address] [address] [address] Benito To Creatinine [Mass/Vol] 1.95 mg/dL Critically high 0.70-1.30 [facility] Comment on above: Performed By: #### H GBHCT #### [facility] [address] [address] [address] Benito To EGFR-AF OMANI 40 mL/min/1.73m2 Critically low >=60 [facility] Comment on above: Performed By: #### H GBHCT #### [facility] [address] [address] [address] Benito To EGFR-NON AF OMANI 33 mL/min/1.73m2 Critically low >=60 [facility] Comment on above: Performed By: #### H GBHCT #### [facility] [address] [address] [address] Benito To Globulin (S) [Mass/Vol] 4.7 g/dL Normal [facility] Comment on above: Performed By: #### H GBHCT #### [facility] [address] [address] [address] Benito To Glucose [Mass/Vol] 198 mg/dL Critically high 74-106 [facility] Comment on above: Performed By: #### H GBHCT #### [facility] [address] [address] [address] Benito To Potassium [Moles/Vol] 4.1 mmol/L Normal 3.5-5.1 [facility] Comment on above: Performed By: #### H GBHCT #### [facility] [address] [address] [address] Benito To Protein [Mass/Vol] 7.4 g/dL Normal 6.4-8.2 [facility] Comment on above: Performed By: #### H GBHCT #### [facility] [address] [address] [address] Benito To Sodium [Moles/Vol] 143 mmol/L Normal 136-145 [facility] Comment on above: Performed By: #### H GBHCT #### [facility] [address] [address] [address] Benito To Urea nitrogen [Mass/Vol] 39.0 mg/dL Critically high 7.0-18.0 [facility] Comment on above: Performed By: #### H GBHCT #### [facility] [address] [address] [address] Benito To Urea nitrogen/Creatinine [Mass ratio] 20.0 mg/mg Normal [facility] Comment on above: Performed By: #### H GBHCT #### [facility] [address] [address] [address] Benito To TROPONIN, HIGH SENSITIVITYon 11-13-2022 HSTROP 47.8 pg/mL Normal 4.0-76.1 [facility] Comment on above: Result Comment: CUT- OFF POINTS HAVE BEEN ESTABLISHED BASED ON THE FOURTH UNIVERSAL DEFINITIONS OF MYOCARDIAL INFARCTION. THE UPPER REFERENCE LIMIT (URL) OF TROPONIN, DEFINED THE 99TH PERCENTILE OF cTnI DISTRIBUTION IN A REFERENCE POPULATION, HAS BEEN CONFIRMED THE DECISION THRESHOLD FOR [place] DIAGNOSIS. Performed By: #### H GBHCT #### [facility] [address] [address] [address] Benito To TYPE AND SCREENon 11-13-2022 TYPE AND SCREEN Negative Normal [facility] Comment on above: Performed By: #### T NS, PRBC #### [facility] [address] [address] [address] Benito To XR CHEST 1 Von [...] OUMOU MONTIEL Date: 2022-11-13 13:36 Normal [facility] PRBC LEUKOREDUCEDon 11-11-19 ABO and Rh group Nom (Bld) Cross Match Result Compatible Unit Blood Type A Pos Unit Number [id number] Status Information Transfused Product ID Red Blood Cells Product Code [id number] Cross Match Result Compatible Unit Blood Type A Pos Unit Number [id number] Status Information Transfused Product ID Red Blood Cells Product Code [id number] Normal [facility] Comment on above: Performed By: #### H H #### [facility] [address] [place], [place] [address] Dr. Benito To CBC W Auto Differential pane l (Bld)on 11-06-2022 Anisocytosis Ql (Bld) Present Normal [facility] Comment on above: Order Comment: Speci men Type: BLOOD SPECIMENOrdering Facility: [facility] Address: [address] [place] [address] Performed By: #### 5 [id number] ####[facility] LABCLIA [id number] [address] LABCLIA [id number] [place] [address] Basophils (Bld) [#/Vol] 0.00 10*3/uL Normal <0.11 [facility] Comment on above: Order Comment: Speci men Type: BLOOD SPECIMENOrdering Facility: [facility] [facility] Address: [address] [place] [address] Performed By: #### 5 7021-8 ####[facility] LABCLIA [id number] [address] LABCLIA [id number] [place] [address] Basophils/100 WBC (Bld) 0.0 % Normal [facility] Comment on above: Order Comment: Speci men Type: BLOOD SPECIMENOrdering Facility: [facility] Address: [address] [place], [place] [address] Performed By: #### 5 7021-8 ####[facility] LABCLIA [id number] [address] LABCLIA [id number] [place] [address] Differential cell count method Nom (Bld) Manual Normal [facility] Comment on above: Order Comment: Speci men Type: BLOOD SPECIMENOrdering Facility: [facility] Address: [address] [place] [address] Performed By: #### 5 7021-8 ####[facility] LABCLIA [id number] [address] LABCLIA [id number] [place] [address] Eosinophils (Bld) [#/Vol] 0.03 10*3/uL Normal <0.46 [facility] Comment on above: Order Comment: Speci men Type: BLOOD SPECIMENOrdering Facility: [facility] Address: [address] [place] [address] Performed By: #### 5 7021-8 ####[facility] LABCLIA [id number] [address] LABCLIA [id number] [place] [address] Eosinophils/100 WBC (Bld) 1.0 % Normal [facility] Comment on above: Order Comment: Speci men Type: BLOOD SPECIMENOrdering Facility: [facility] Address: [address] [place] [address] Performed By: #### 5 7021-8 ####[facility] LABCLIA [id number] [address] LABCLIA [id number] [place] [address] Erythrocyte distribution width (RBC) [Ratio] 24.8 % High 11.5-15.0 [facility] Comment on above: Order Comment: Speci men Type: BLOOD SPECIMENOrdering Facility: [facility] Address: [address] [place] [address] Performed By: #### 5 7021-8 ####[facility] LABCLIA [id number] [address] LABCLIA [id number] [place] [address] Hematocrit (Bld) [Volume fraction] 21.1 % Low 39.0-51.0 [facility] Comment on above: Order Comment: Speci men Type: BLOOD SPECIMENOrdering Facility: [facility] Address: [address] [place] [address] Performed By: #### 5 7021-8 ####[facility] LABCLIA [id number] [address] LABCLIA [id number] [place] [address] Hemoglobin (Bld) [Mass/Vol] 6.5 g/dL Low 13.0-17.0 [facility] Comment on above: Order Comment: Speci men Type: BLOOD SPECIMENOrdering Facility: [facility] Address: [address] [place] [address] Performed By: #### 5 7021-8 ####[facility] LABCLIA [id number] [address] LABCLIA [id number] [place] [address] Lymphocytes (Bld) [#/Vol] 0.97 10*3/uL Low 1.00-4.00 [facility] Comment on above: Order Comment: Speci men Type: BLOOD SPECIMENOrdering Facility: [facility] Address: [address] [place] [address] Performed By: #### 5 7021-8 ####[facility] LABCLIA [id number] [address] LABCLIA [id number] [place] [address] Lymphocytes/100 WBC (Bld) 28.0 % Normal [facility] Comment on above: Order Comment: Speci men Type: BLOOD SPECIMENOrdering Facility: [facility] Address: [address] [place] [address] Performed By: #### 5 7021-8 ####[facility] LABCLIA [id number] [address] LABCLIA [id number] [place] [address] MCH (RBC) [Entitic mass] 32.0 pg Normal 26.0-34.0 [facility] Comment on above: Order Comment: Speci men Type: BLOOD SPECIMENOrdering Facility: [facility] Address: [address] [place] [address] Performed By: #### 5 7021-8 ####[facility] LABCLIA [id number] [address] LABCLIA [id number] [place] [address] MCHC (RBC) [Mass/Vol] 30.8 g/dL Normal 30.5-36.0 [facility] Comment on above: Order Comment: Speci men Type: BLOOD SPECIMENOrdering Facility: [facility] Address: [address] [place] [address] Performed By: #### 5 7021-8 ####[facility] LABCLIA [id number] [address] LABCLIA [id number] [place] [address] MCV (RBC) [Entitic vol] 103.9 fL High 80.0-100.0 [facility] Comment on above: Order Comment: Speci men Type: BLOOD SPECIMENOrdering Facility: [facility] Address: [address] [place] [address] Performed By: #### 5 7021-8 ####[facility] LABCLIA [id number] [address] [place] [address] LABCLIA [id number] [place] [address] Metamyelocytes/100 WBC (Bld) 5.0 % Normal [facility] Comment on above: Order Comment: Speci men Type: BLOOD SPECIMENOrdering Facility: [facility] Address: [address] [place] [address] Performed By: #### 5 7021-8 ####[facility] LABCLIA [id number] [address] LABCLIA [id number] [place] [address] Monocytes (Bld) [#/Vol] 0.48 10*3/uL Normal <0.87 [facility] Comment on above: Order Comment: Speci men Type: BLOOD SPECIMENOrdering Facility: [facility] Address: [address] [place] [address] Performed By: #### 5 7021-8 ####[facility] LABCLIA [id number] [address] LABCLIA [id number] [place] [address] Monocytes/100 WBC (Bld) 14.0 % Normal [facility] Comment on above: Order Comment: Speci men Type: BLOOD SPECIMENOrdering Facility: [facility] Address: [address] [place] [address] Performed By: #### 5 7021-8 ####[facility] LABCLIA [id number] [address] LABCLIA [id number] [place] [address] MYELO% 9.0 % Normal [facility] Comment on above: Order Comment: Speci men Type: BLOOD SPECIMENOrdering Facility: [facility] Address: [address] [place] [address] Performed By: #### 5 7021-8 ####[facility] LABCLIA [id number] [address] LABCLIA [id number] [place] [address] Neutrophils (Bld) [#/Vol] 1.48 10*3/uL Normal 1.45-7.50 [facility] Comment on above: Order Comment: Speci men Type: BLOOD SPECIMENOrdering Facility: [facility] Address: [address] Performed By: #### 5 7021-8 ####[facility] LABCLIA [id number] [address] LABCLIA [id number] [place] [address] Neutrophils/100 WBC (Bld) 43.0 % Normal [facility] Comment on above: Order Comment: Speci men Type: BLOOD SPECIMENOrdering Facility: [facility] Address: [address] [place], [place] [address] Performed By: #### 5 7021-8 ####[facility] LABCLIA [id number] [address] LABCLIA [id number] [place] [address] Nucleated RBC (Bld) [#/Vol] 10*3/uL Normal <0.01 [facility] Comment on above: Order Comment: Speci men Type: BLOOD SPECIMENOrdering Facility: [facility] Address: [address] [place] [address] Performed By: #### 5 7021-8 ####[facility] LABCLIA [id number] [address] LABCLIA [id number] [place] [address] Nucleated RBC/100 WBC (Bld) [Ratio] 0.0 /100 WBC Normal [facility] Comment on above: Order Comment: Speci men Type: BLOOD SPECIMENOrdering Facility: [facility] Address: [address] [place] [address] Performed By: #### 5 7021-8 ####[facility] LABCLIA [id number] [address] LABCLIA [id number] [place] [address] Ovalocytes LM Ql (Bld) Few Normal [facility] Comment on above: Order Comment: Speci men Type: BLOOD SPECIMENOrdering Facility: [facility] Address: [address] [place] [address] Performed By: #### 5 7021-8 ####[facility] LABCLIA [id number] [address] LABCLIA [id number] [place] [address] Platelet mean volume (Bld) [Entitic vol] Normal [facility] Comment on above: Order Comment: Speci men Type: BLOOD SPECIMENOrdering Facility: [facility] Address: [address] [place] [address] Result Comment: Unab le to Report. Performed By: #### 5 7021-8 ####[facility] LABCLIA [id number] [address] LABCLIA [id number] [place] [address] Platelets (Bld) [#/Vol] 47 10*3/uL Low 150-400 [facility] Comment on above: Order Comment: Speci men Type: BLOOD SPECIMENOrdering Facility: [facility] Address: [address], [place] [address] Result Comment: Resu lts checked and verified.No clot detected.Platelet count confirmed by manual review of peripheral blood smear. Performed By: #### 5 7021-8 ####[facility] LABCLIA [id number] [address] LABCLIA [id number] [place] [address] Platelets Estimate (Bld) [#/Vol] Decreased Normal [facility] Comment on above: Order Comment: Speci men Type: BLOOD SPECIMENOrdering Facility: [facility] Address: [address] [place] [address] Performed By: #### 5 7021-8 ####[facility] LABCLIA [id number] [address] LABCLIA [id number] [place] [address] Polychromasia LM Ql (Bld) Slight Normal [facility] Comment on above: Order Comment: Speci men Type: BLOOD SPECIMENOrdering Facility: [facility] Address: [address] [place] [address] Performed By: #### 5 7021-8 ####[facility] LABCLIA [id number] [address] LABCLIA [id number] [place] [address] RBC (Bld) [#/Vol] 2.03 10*6/uL Low 4.20-6.00 [facility] Comment on above: Order Comment: Speci men Type: BLOOD SPECIMENOrdering Facility: [facility] Address: [address] [place] [address] Performed By: #### 5 7021-8 ####[facility] LABCLIA [id number] [address] LABCLIA [id number] [place] [address] RED CELL MORPH Reviewed: see result s of individual morphologies Normal [facility] Comment on above: Order Comment: Speci men Type: BLOOD SPECIMENOrdering Facility: [facility] Address: [address] [place] [address] Performed By: #### 5 7021-8 ####[facility] LABCLIA [id number] [address] LABCLIA [id number] [place] [address] WBC (Bld) [#/Vol] 3.45 10*3/uL Low 3.70-11.00 [facility] Comment on above: Order Comment: Speci men Type: BLOOD SPECIMENOrdering Facility: [facility] Address: [address] [place] [address] Result Comment: Resu lts checked and verified.No clot detected.Reviewed Performed By: #### 5 7021-8 ####[facility] LABCLIA [id number] [address] LABCLIA [id number] [place] [address] WBC Left Shift Ql (Bld) Present Normal [facility] Comment on above: Order Comment: Speci men Type: BLOOD SPECIMENOrdering Facility: [facility] Address: [address] [place] [address] Performed By: #### 5 7021-8 ####[facility] LABCLIA [id number] [address] LABIA [id number] [place] [address] CNPNon 11-06-2022 CNPN Normal [facility] Comprehensive metabolic 2000 panelon 11-06-2022 Albumin [Mass/Vol] 3.7 g/dL Low 3.9-4.9 [facility] Comment on above: Order Comment: Speci men Type: BLOOD SPECIMENOrdering Facility: [facility] Address: [address] [place] [address] Performed By: #### 2 4323-8 ####[facility] LABCLIA [id number] [place] [address] ALP [Catalytic activity/Vol] 171 U/L High 38-113 [facility] Comment on above: Order Comment: Speci men Type: BLOOD SPECIMENOrdering Facility: [facility] Address: [address] [address] Performed By: #### 2 4323-8 ####[facility] LABCLIA [id number] [place] [address] ALT [Catalytic activity/Vol] 56 U/L High 10-54 [facility] Comment on above: Order Comment: Speci men Type: BLOOD SPECIMENOrdering Facility: [facility] Address: [address] [address] Performed By: #### 2 4323-8 ####[facility] LABCLIA [id number] [place] [address] Anion gap [Moles/Vol] 6 mmol/L Low 9-18 [facility] Comment on above: Order Comment: Speci men Type: BLOOD SPECIMENOrdering Facility: [facility] Address: [address] [address] Performed By: #### 2 4323-8 ####[facility] LABCLIA [id number] [place] [address] AST [Catalytic activity/Vol] 29 U/L Normal 14-40 [facility] Comment on above: Order Comment: Speci men Type: BLOOD SPECIMENOrdering Facility: [facility] Address: [address] [address] Performed By: #### 2 4323-8 ####[facility] LABCLIA [id number] [place] [address] Bilirubin [Mass/Vol] 0.8 mg/dL Normal 0.2-1.3 [facility] Comment on above: Order Comment: Speci men Type: BLOOD SPECIMENOrdering Facility: [facility] Address: [address] [place] [address] Performed By: #### 2 4323-8 ####[facility] LABCLIA [id number] [place] [address] Calcium [Mass/Vol] 9.0 mg/dL Normal 8.5-10.2 [facility] Comment on above: Order Comment: Speci men Type: BLOOD SPECIMENOrdering Facility: [facility] Address: [address] [place] [address] Performed By: #### 2 4323-8 ####[facility] LABCLIA [id number] [place] [address] Chloride [Moles/Vol] 104 mmol/L Normal 97-105 [facility] Comment on above: Order Comment: Speci men Type: BLOOD SPECIMENOrdering Facility: [facility] Address: [address] [place] [address] Performed By: #### 2 4323-8 ####[facility] LABCLIA [id number] [place] [address] CO2 [Moles/Vol] 30 mmol/L Normal 22-30 [facility] Comment on above: Order Comment: Speci men Type: BLOOD SPECIMENOrdering Facility: [facility] Address: [address] [address] Performed By: #### 2 4323-8 ####[facility] LABCLIA [id number] [place] [address] Creatinine [Mass/Vol] 1.41 mg/dL High 0.73-1.22 [facility] Comment on above: Order Comment: Speci men Type: BLOOD SPECIMENOrdering Facility: [facility] Address: [address] [place] [address] Performed By: #### 2 4323-8 ####[facility] LABCLIA [id number] [place] [address] ESTIMATED GLOMERULAR FILTRATION RATE 49 mL/min/1.73m??? Low >=60 [facility] Comment on above: Order Comment: Speciman avendaño Type: BLOOD SPECIMENOrdering Facility: [facility] Address: [address] [place] [address] Result Comment: Faye mated Glomerular Filtration Rate [...] actual GFR. Performed By: #### 2 4323-8 ####[facility] LABCLIA [id number] [place] [address] Glucose [Mass/Vol] 183 mg/dL High 74-99 [facility] Comment on above: Order Comment: Speciman avendaño Type: BLOOD SPECIMENOrdering Facility: [facility] Address: [address] [place] [address] Result Comment: The [place] [employer] (ADA) provides guidance for cutoff [...] Standards of Medical Care in Diabetes 2016, [place] [employer]. Diabetes Care. 2016.39(Suppl 1). Performed By: #### 2 4323-8 ####[facility] LABCLIA [id number] [place] [address] Potassium [Moles/Vol] 4.0 mmol/L Normal 3.7-5.1 [facility] Comment on above: Order Comment: Speci men Type: BLOOD SPECIMENOrdering Facility: [facility] Address: [address] [place] [address] Performed By: #### 2 4323-8 ####[facility] LABCLIA [id number] [place] [address] Protein [Mass/Vol] 7.0 g/dL Normal 6.3-8.0 [facility] Comment on above: Order Comment: Speci men Type: BLOOD SPECIMENOrdering Facility: [facility] Address: [address] [place] [address] Performed By: #### 2 4323-8 ####[facility] LABCLIA [id number] [place] [address] Sodium [Moles/Vol] 140 mmol/L Normal 136-144 [facility] Comment on above: Order Comment: Speci men Type: BLOOD SPECIMENOrdering Facility: [facility] Address: [address] [place] [address] Performed By: #### 2 4323-8 ####[facility] LABCLIA [id number] [place] [address] Urea nitrogen [Mass/Vol] 27 mg/dL High 9-24 [facility] Comment on above: Order Comment: Speci men Type: BLOOD SPECIMENOrdering Facility: [facility] Address: [address] [place] [address] Performed By: #### 2 4323-8 ####[facility] LABCLIA [id number] [place] [address] HEMOGLOBIN AND HEMATOCRITon 11-06-2022 Hematocrit (Bld) [Volume fraction] 20.3 % Critically low 42.0-54.0 [facility] Comment on above: Performed By: #### T NS, PRBC #### [facility] [address] [place] [address] [address] Benito To Hemoglobin (Bld) [Mass/Vol] 6.4 g/dL Critically low 14.0-18.0 [facility] Comment on above: Performed By: #### T NS, PRBC #### [facility] [address] [place] [address] Dr. Benito To TYPE AND SCREENon 11-06-2022 TYPE AND SCREEN Negative Normal [facility] Comment on above: Performed By: #### H H #### [facility] [address] [place] [address] Dr. Benito To PRBC LEUKOREDUCEDon 11-01-19 23 ABO and Rh group Nom (Bld) Cross Match Result Compatible Unit Blood Type A Pos Unit Number [id number] Status Information Transfused Product ID Red Blood Cells Product Code [id number] Cross Match Result Compatible Unit Blood Type A Pos Unit Number [id number] Status Information Transfused Product ID Red Blood Cells Product Code [id number] Normal [facility] Comment on above: Performed By: #### T NS, PRBC #### [facility] [address] [place] [address] Dr. Benito To ABO and Rh group Nom (Bld) Cross Match Result Compatible Unit Blood Type A Pos Unit Number [id number] Status Information Transfused Product ID Red Blood Cells Product Code [id number] Cross Match Result Compatible Unit Blood Type A Pos Unit Number [id number] Status Information Transfused Product ID Red Blood Cells Product Code [id number] Normal [facility] Comment on above: Performed By: #### T NS, PRBC #### [facility] [address] [place] [address] Dr. Benito To CBC W Auto Differential pane l (Bld)on 10-30-2022 Anisocytosis Ql (Bld) Present Normal [facility] Comment on above: Order Comment: Speci men Type: BLOOD SPECIMENOrdering Facility: [facility] Address: [address] [place] [address] Performed By: #### 5 7021-8 ####[facility] LABCLIA [id number] [address] [facility] LABCLIA [id number] [place] [address] Basophils (Bld) [#/Vol] 0.00 10*3/uL Normal <0.11 [facility] Comment on above: Order Comment: Speci men Type: BLOOD SPECIMENOrdering Facility: [facility] Address: [address] [place] [address] Performed By: #### 5 7021-8 ####[facility] LABCLIA [id number] [address] LABCLIA [id number] [place] [address] Basophils/100 WBC (Bld) 0.0 % Normal [facility] Comment on above: Order Comment: Speci men Type: BLOOD SPECIMENOrdering Facility: [facility] Address: [address] [place], [place] [address] Performed By: #### 5 7021-8 ####[facility] LABCLIA [id number] [address] LABCLIA [id number] [place] [address] Differential cell count method Nom (Bld) Manual Normal [facility] Comment on above: Order Comment: Speci men Type: BLOOD SPECIMENOrdering Facility: [facility] Address: [address] [place] [address] Performed By: #### 5 7021-8 ####[facility] LABCLIA [id number] [address] LABCLIA [id number] [place] [address] Eosinophils (Bld) [#/Vol] 0.00 10*3/uL Normal <0.46 [facility] Comment on above: Order Comment: Speci men Type: BLOOD SPECIMENOrdering Facility: [facility] Address: [address] [place], [place] [address] Performed By: #### 5 7021-8 ####[facility] LABCLIA [id number] [address] LABCLIA [id number] [place] [address] Eosinophils/100 WBC (Bld) 0.0 % Normal [facility] Comment on above: Order Comment: Speci men Type: BLOOD SPECIMENOrdering Facility: [facility] Address: [address] [place] [address] Performed By: #### 5 7021-8 ####[facility] LABCLIA [id number] [address] LABCLIA [id number] [place] [address] Erythrocyte distribution width (RBC) [Ratio] 22.6 % High 11.5-15.0 [facility] Comment on above: Order Comment: Speci men Type: BLOOD SPECIMENOrdering Facility: [facility] Address: [address] [place] [address] Performed By: #### 5 7021-8 ####[facility] LABCLIA [id number] [address] LABCLIA [id number] [place] [address] Hematocrit (Bld) [Volume fraction] 26.0 % Low 39.0-51.0 [facility] Comment on above: Order Comment: Speci men Type: BLOOD SPECIMENOrdering Facility: [facility] Address: [address] [place], [place] [address] Performed By: #### 5 7021-8 ####[facility] LABCLIA [id number] [address] LABCLIA [id number] [place] [address] Hemoglobin (Bld) [Mass/Vol] 8.1 g/dL Low 13.0-17.0 [facility] Comment on above: Order Comment: Speci men Type: BLOOD SPECIMENOrdering Facility: [facility] Address: [address] [place] [address] Performed By: #### 5 7021-8 ####[facility] LABIA [id number] [address] LABCLIA [id number] [place] [address] Lymphocytes (Bld) [#/Vol] 0.79 10*3/uL Low 1.00-4.00 [facility] Comment on above: Order Comment: Speci men Type: BLOOD SPECIMENOrdering Facility: [facility] Address: [address] [place] [address] Performed By: #### 5 7021-8 ####[facility] LABCLIA [id number] [address] LABCLIA [id number] [place] [address] Lymphocytes/100 WBC (Bld) 31.0 % Normal [facility] Comment on above: Order Comment: Speci men Type: BLOOD SPECIMENOrdering Facility: [facility] Address: [address] [place] [address] Performed By: #### 5 7021-8 ####[facility] LABCLIA [id number] [address] LABCLIA [id number] [place] [address] MCH (RBC) [Entitic mass] 31.5 pg Normal 26.0-34.0 [facility] Comment on above: Order Comment: Speci men Type: BLOOD SPECIMENOrdering Facility: [facility] Address: [address] [place] [address] Performed By: #### 5 7021-8 ####[facility] LABCLIA [id number] [address] LABCLIA [id number] [place] [address] MCHC (RBC) [Mass/Vol] 31.2 g/dL Normal 30.5-36.0 [facility] Comment on above: Order Comment: Speci men Type: BLOOD SPECIMENOrdering Facility: [facility] Address: [address] [place] [address] Performed By: #### 5 7021-8 ####[facility] LABCLIA [id number] [address] LABCLIA [id number] [place] [address] MCV (RBC) [Entitic vol] 101.2 fL High 80.0-100.0 [facility] Comment on above: Order Comment: Speci men Type: BLOOD SPECIMENOrdering Facility: [facility] Address: [address] [place] [address] Performed By: #### 5 7021-8 ####[facility] LABCLIA [id number] [address] LABCLIA [id number] [place] [address] Metamyelocytes/100 WBC (Bld) 1.0 % Normal [facility] Comment on above: Order Comment: Speci men Type: BLOOD SPECIMENOrdering Facility: [facility] Address: [address] [place] [address] Performed By: #### 5 7021-8 ####[facility] LABCLIA [id number] [address] LABCLIA [id number] [place] [address] Monocytes (Bld) [#/Vol] 0.28 10*3/uL Normal <0.87 [facility] Comment on above: Order Comment: Speci men Type: BLOOD SPECIMENOrdering Facility: [facility] Address: [address] [place] [address] Performed By: #### 5 7021-8 ####[facility] LABCLIA [id number] [address] LABCLIA [id number] [place] [address] Monocytes/100 WBC (Bld) 11.0 % Normal [facility] Comment on above: Order Comment: Speci men Type: BLOOD SPECIMENOrdering Facility: [facility] Address: [address] [place] [address] Performed By: #### 5 7021-8 ####[facility] LABCLIA [id number] [address] LABCLIA [id number] [place] [address] MYELO% 10.0 % Normal [facility] Comment on above: Order Comment: Speci men Type: BLOOD SPECIMENOrdering Facility: [facility] Address: [address] [place] [address] Performed By: #### 5 7021-8 ####[facility] LABCLIA [id number] [address] LABCLIA [id number] [place] [address] Neutrophils (Bld) [#/Vol] 1.22 10*3/uL Low 1.45-7.50 [facility] Comment on above: Order Comment: Speci men Type: BLOOD SPECIMENOrdering Facility: [facility] Address: [address] [place] [address] Performed By: #### 5 7021-8 ####[facility] LABCLIA [id number] [address] LABCLIA [id number] [place] [address] Neutrophils/100 WBC (Bld) 48.0 % Normal [facility] Comment on above: Order Comment: Speci men Type: BLOOD SPECIMENOrdering Facility: [facility] Address: [address] [place] [address] Performed By: #### 5 7021-8 ####[facility] LABCLIA [id number] [address] LABCLIA [id number] [place] [address] Nucleated RBC (Bld) [#/Vol] 0.08 10*3/uL High <0.01 [facility] Comment on above: Order Comment: Speci men Type: BLOOD SPECIMENOrdering Facility: [facility] Address: [address] [place] [address] Performed By: #### 5 7021-8 ####[facility] LABCLIA [id number] [address] LABCLIA [id number] [place] [address] Nucleated RBC/100 WBC (Bld) [Ratio] 3.0 /100 WBC Normal [facility] Comment on above: Order Comment: Speci men Type: BLOOD SPECIMENOrdering Facility: [facility] Address: [address] [place] [address] Performed By: #### 5 7021-8 ####[facility] LABCLIA [id number] [address] LABCLIA [id number] [place] [address] Ovalocytes LM Ql (Bld) Few Normal [facility] Comment on above: Order Comment: Speci men Type: BLOOD SPECIMENOrdering Facility: [facility] Address: [address] [place] [address] Performed By: #### 5 7021-8 ####[facility] LABCLIA [id number] [address] LABCLIA [id number] [place] [address] Platelet mean volume (Bld) [Entitic vol] Normal [facility] Comment on above: Order Comment: Speci men Type: BLOOD SPECIMENOrdering Facility: [facility] Address: [address] [place] [address] Result Comment: Payton white to report Performed By: #### 5 7021-8 ####[facility] LABCLIA [id number] [address] LABCLIA [id number] [place] [address] Platelets (Bld) [#/Vol] 60 10*3/uL Low 150-400 [facility] Comment on above: Order Comment: Speci men Type: BLOOD SPECIMENOrdering Facility: [facility] Address: [address] [place] [address] Result Comment: No c lot detected. Checked and Verified Performed By: #### 5 7021-8 ####[facility] LABCLIA [id number] [address] LABCLIA [id number] [place] [address] Platelets Estimate (Bld) [#/Vol] Decreased Normal [facility] Comment on above: Order Comment: Speci men Type: BLOOD SPECIMENOrdering Facility: [facility] Address: [address] [place] [address] Performed By: #### 5 7021-8 ####[facility] LABCLIA [id number] [address] LABCLIA [id number] [place] [address] RBC (Bld) [#/Vol] 2.57 10*6/uL Low 4.20-6.00 [facility] Comment on above: Order Comment: Speci men Type: BLOOD SPECIMENOrdering Facility: [facility] Address: [address] [place] [address] Performed By: #### 5 7021-8 ####[facility] LABCLIA [id number] [address] LABCLIA [id number] [place] [address] RBC FRAGMENTS Few Abnormal None Seen [facility] Comment on above: Order Comment: Speci men Type: BLOOD SPECIMENOrdering Facility: [facility] Address: [address] [place] [address] Performed By: #### 5 7021-8 ####[facility] LABCLIA [id number] [address] LABCLIA [id number] [place] [address] RED CELL MORPH Reviewed: see result s of individual morphologies Normal [facility] Comment on above: Order Comment: Speci men Type: BLOOD SPECIMENOrdering Facility: [facility] Address: [address] [place] [address] Performed By: #### 5 7021-8 ####[facility] LABCLIA [id number] [address] LABCLIA [id number] [place] [address] WBC (Bld) [#/Vol] 2.55 10*3/uL Low 3.70-11.00 [facility] Comment on above: Order Comment: Speci men Type: BLOOD SPECIMENOrdering Facility: [facility] Address: [address] [place] [place] [address] Result Comment: Resu lts checked and verified.No clot detected. Performed By: #### 5 7021-8 ####[facility] LABCLIA [id number] [address] LABCLIA [id number] [place] [address] WBC Left Shift Ql (Bld) Present Normal [facility] Comment on above: Order Comment: Speci men Type: BLOOD SPECIMENOrdering Facility: [facility] Address: [address] [place] [address] Performed By: #### 5 7021-8 ####[facility] LABCLIA [id number] [address] LABCLIA [id number] [place] [address] CNOVSPon 10-30-2022 CNOVSP Normal [facility] Comprehensive metabolic 2000 panelon 10-30-2022 Albumin [Mass/Vol] 3.6 g/dL Low 3.9-4.9 [facility] Comment on above: Order Comment: Speci men Type: BLOOD SPECIMENOrdering Facility: [facility] Address: [address] [place] [address] Performed By: #### 2 4323-8 ####[facility] LABCLIA [id number] [place] [address] ALP [Catalytic activity/Vol] 183 U/L High 38-113 [facility] Comment on above: Order Comment: Speci men Type: BLOOD SPECIMENOrdering Facility: [facility] Address: [address] [address] Performed By: #### 2 4323-8 ####[facility] LABCLIA [id number] [place] [address] ALT [Catalytic activity/Vol] 74 U/L High 10-54 [facility] Comment on above: Order Comment: Speci men Type: BLOOD SPECIMENOrdering Facility: [facility] Address: [address] [address] Performed By: #### 2 4323-8 ####[facility] LABCLIA [id number] [place] [address] Anion gap [Moles/Vol] 11 mmol/L Normal 9-18 [facility] Comment on above: Order Comment: Speci men Type: BLOOD SPECIMENOrdering Facility: [facility] Address: [address] [place] [address] Performed By: #### 2 4323-8 ####[facility] LABCLIA [id number] [place] [address] AST [Catalytic activity/Vol] 39 U/L Normal 14-40 [facility] Comment on above: Order Comment: Speci men Type: BLOOD SPECIMENOrdering Facility: [facility] Address: [address] [address] Performed By: #### 2 4323-8 ####[facility] LABCLIA [id number] [place] [address] Bilirubin [Mass/Vol] 1.0 mg/dL Normal 0.2-1.3 [facility] Comment on above: Order Comment: Speci men Type: BLOOD SPECIMENOrdering Facility: [facility] Address: [address] [address] Performed By: #### 2 4323-8 ####[facility] LABCLIA [id number] [place] [address] Calcium [Mass/Vol] 9.1 mg/dL Normal 8.5-10.2 [facility] Comment on above: Order Comment: Speci men Type: BLOOD SPECIMENOrdering Facility: [facility] Address: [address] [place] [address] Performed By: #### 2 4323-8 ####[facility] LABCLIA [id number] [place] [address] Chloride [Moles/Vol] 100 mmol/L Normal 97-105 [facility] Comment on above: Order Comment: Speci men Type: BLOOD SPECIMENOrdering Facility: [facility] Address: [address] [place] [address] Performed By: #### 2 4323-8 ####[facility] LABCLIA [id number] [place] [address] CO2 [Moles/Vol] 31 mmol/L High 22-30 [facility] Comment on above: Order Comment: Speci men Type: BLOOD SPECIMENOrdering Facility: [facility] Address: [address] [place] [address] Performed By: #### 2 4323-8 ####[facility] LABCLIA [id number] [place] [address] Creatinine [Mass/Vol] 1.34 mg/dL High 0.73-1.22 [facility] Comment on above: Order Comment: Speci men Type: BLOOD SPECIMENOrdering Facility: [facility] Address: [address] [place] [address] Performed By: #### 2 4323-8 ####[facility] LABCLIA [id number] [place] [address] ESTIMATED GLOMERULAR FILTRATION RATE 53 mL/min/1.73m??? Low >=60 [facility] Comment on above: Order Comment: Speci men Type: BLOOD SPECIMENOrdering Facility: [facility] Address: [address] [place] [address] Result Comment: Faye mated Glomerular Filtration Rate [...] actual GFR. Performed By: #### 2 4323-8 ####[facility] LABCLIA [id number] [place] [address] Glucose [Mass/Vol] 229 mg/dL High 74-99 [facility] Comment on above: Order Comment: Speci men Type: BLOOD SPECIMENOrdering Facility: [facility] Address: [address] [place] [address] Result Comment: The [place] [employer] (ADA) provides guidance for cutoff [...] Standards of Medical Care in Diabetes 2016, [place] [employer]. Diabetes Care. 2016.39(Suppl 1). Performed By: #### 2 4323-8 ####[facility] LABCLIA [id number] [place] [address] Potassium [Moles/Vol] 3.9 mmol/L Normal 3.7-5.1 [facility] Comment on above: Order Comment: Speci men Type: BLOOD SPECIMENOrdering Facility: [facility] Address: [address] [address] Performed By: #### 2 4323-8 ####[facility] LABCLIA [id number] [place] [address] Protein [Mass/Vol] 7.2 g/dL Normal 6.3-8.0 [facility] Comment on above: Order Comment: Speci men Type: BLOOD SPECIMENOrdering Facility: [facility] Address: [address] [place] [address] Performed By: #### 2 4323-8 ####[facility] LABCLIA [id number] [place] [id number] Sodium [Moles/Vol] 142 mmol/L Normal 136-144 [facility] Comment on above: Order Comment: Speci men Type: BLOOD SPECIMENOrdering Facility: [facility] Address: [address] [address] Performed By: #### 2 4323-8 ####[facility] LABCLIA [id number] [place] [address] Urea nitrogen [Mass/Vol] 24 mg/dL Normal 9-24 [facility] Comment on above: Order Comment: Speci men Type: BLOOD SPECIMENOrdering Facility: [facility] Address: [address] [address] Performed By: #### 2 4323-8 ####[facility] LABCLIA [id number] [place] [id number] HEMOGRAM AND PLATELon 2022 Hematocrit (Bld) [Volume fraction] 21.7 % Critically low 42.0-54.0 [facility] Comment on above: Performed By: #### T NS, PRBC #### [facility] [address] [place] [address] Dr. Benito To Hemoglobin (Bld) [Mass/Vol] 6.9 g/dL Critically low 14.0-18.0 [facility] Comment on above: Performed By: #### T NS, PRBC #### [facility] [address] [place] [address] Dr. Benito To MCH (RBC) [Entitic mass] 31.7 pg Normal 25.9-34.0 [facility] Comment on above: Performed By: #### T NS, PRBC #### [facility] [address] [place] [address] Dr. Benito To MCHC (RBC) [Mass/Vol] 31.8 g/dL Normal 29.9-35.2 [facility] Comment on above: Performed By: #### T NS, PRBC #### [facility] [address] [place], [place] [address] Dr. Benito To MCV (RBC) [Entitic vol] 99.5 fL Critically high 80.0-94.0 [facility] Comment on above: Performed By: #### T NS, PRBC #### [facility] [address] [place], [place] [address] Dr. Benito To PLT 54 103/ul Critically low 150-450 [facility] Comment on above: Performed By: #### T NS, PRBC #### [facility] [address] [place], [place] [address] Dr. Benito To RBC 2.18 106/ul Critically low 4.70-6.10 [facility] Comment on above: Performed By: #### T ZEHRA, PRBC #### [facility] [address] [place], [place] [address] Dr. Benito To WBC 4.3 103/ul Normal 4.0-11.0 [facility] Comment on above: Performed By: #### T ZEHRA, PRBC #### [facility] [address] [place], [place] [address] Dr. Benito To TYPE AND SCREENon 10-25-2022 TYPE AND SCREEN Negative Normal [facility] Comment on above: Performed By: #### T ZEHRA, PRBC #### [facility] [address] [place], [place] [address] Dr. Benito To CNPNon 10-24-2022 CNPN Normal [facility] CBC W Auto Differential pane l (Bld)on 10-23-2022 Anisocytosis Ql (Bld) Present Normal [facility] Comment on above: Order Comment: Speci men Type: BLOOD SPECIMENOrdering Facility: [facility] Address: [address] [place] [address] Performed By: #### 5 7021-8 ####[facility] LABCLIA [id number] [place] [address] [address] [facility] LABCLIA [id number] [place] [address] Basophils (Bld) [#/Vol] 0.03 10*3/uL Normal <0.11 [facility] Comment on above: Order Comment: Speci men Type: BLOOD SPECIMENOrdering Facility: [facility] Address: [address] [place] [address] Performed By: #### 5 7021-8 ####[facility] LABCLIA [id number] [address] LABCLIA [id number] [place] [address] Basophils/100 WBC (Bld) 1.0 % Normal [facility] Comment on above: Order Comment: Speci men Type: BLOOD SPECIMENOrdering Facility: [facility] Address: [address] [place] [address] Performed By: #### 5 7021-8 ####[facility] LABCLIA [id number] [address] LABCLIA [id number] [place] [address] BLAST% 1.0 % High <=0.0 [facility] Comment on above: Order Comment: Speci men Type: BLOOD SPECIMENOrdering Facility: [facility] Address: [address] [place] [address] Performed By: #### 5 7021-8 ####[facility] LABCLIA [id number] [address] LABCLIA [id number] [place] [address] Differential cell count method Nom (Bld) Manual Normal [facility] Comment on above: Order Comment: Speci men Type: BLOOD SPECIMENOrdering Facility: [facility] Address: [address] [place] [address] Performed By: #### 5 7021-8 ####[facility] LABCLIA [id number] [address] LABCLIA [id number] [place] [address] Eosinophils (Bld) [#/Vol] 0.00 10*3/uL Normal <0.46 [facility] Comment on above: Order Comment: Speci men Type: BLOOD SPECIMENOrdering Facility: [facility] Address: [address] [place] [address] Performed By: #### 5 7021-8 ####[facility] LABCLIA [id number] [address] LABCLIA [id number] [place] [address] Eosinophils/100 WBC (Bld) 0.0 % Normal [facility] Comment on above: Order Comment: Speci men Type: BLOOD SPECIMENOrdering Facility: [facility] Address: [address] [place] [address] Performed By: #### 5 7021-8 ####[facility] LABCLIA [id number] [address] LABCLIA [id number] [place] [address] Erythrocyte distribution width (RBC) [Ratio] 23.7 % High 11.5-15.0 [facility] Comment on above: Order Comment: Speci men Type: BLOOD SPECIMENOrdering Facility: [facility] Address: [address] [place] [address] Performed By: #### 5 7021-8 ####[facility] LABCLIA [id number] [address] LABCLIA [id number] [place] [address] Hematocrit (Bld) [Volume fraction] 23.4 % Low 39.0-51.0 [facility] Comment on above: Order Comment: Speci men Type: BLOOD SPECIMENOrdering Facility: [facility] Address: [address] [place] [address] Performed By: #### 5 7021-8 ####[facility] LABCLIA [id number] [address] LABCLIA [id number] [place] [address] Hemoglobin (Bld) [Mass/Vol] 7.4 g/dL Low 13.0-17.0 [facility] Comment on above: Order Comment: Speci men Type: BLOOD SPECIMENOrdering Facility: [facility] Address: [address] [place] [address] Performed By: #### 5 7021-8 ####[facility] LABCLIA [id number] [address] LABCLIA [id number] [place] [address] Lymphocytes (Bld) [#/Vol] 1.11 10*3/uL Normal 1.00-4.00 [facility] Comment on above: Order Comment: Speci men Type: BLOOD SPECIMENOrdering Facility: [facility] Address: [address] [place] [address] Performed By: #### 5 7021-8 ####[facility] LABCLIA [id number] [address] LABCLIA [id number] [place] [address] Lymphocytes/100 WBC (Bld) 32.0 % Normal [facility] Comment on above: Order Comment: Speci men Type: BLOOD SPECIMENOrdering Facility: [facility] Address: [address] [place], [place] [address] Performed By: #### 5 7021-8 ####[facility] LABCLIA [id number] [facility] [id number] [place] [address] LABCLIA [id number] [place] [address] MCH (RBC) [Entitic mass] 31.5 pg Normal 26.0-34.0 [facility] Comment on above: Order Comment: Speci men Type: BLOOD SPECIMENOrdering Facility: [facility] Address: [address] [place] [address] Performed By: #### 5 7021-8 ####[facility] LABCLIA [id number] [address] LABCLIA [id number] [place] [address] MCHC (RBC) [Mass/Vol] 31.6 g/dL Normal 30.5-36.0 [facility] Comment on above: Order Comment: Speci men Type: BLOOD SPECIMENOrdering Facility: [facility] Address: [address] [place] [address] Performed By: #### 5 7021-8 ####[facility] LABCLIA [id number] [address] LABCLIA [id number] [place] [address] MCV (RBC) [Entitic vol] 99.6 fL Normal 80.0-100.0 [facility] Comment on above: Order Comment: Speci men Type: BLOOD SPECIMENOrdering Facility: [facility] Address: [address] [place], [place] [address] Performed By: #### 5 7021-8 ####[facility] LABIA [id number] [address] LABCLIA [id number] [place] [address] Monocytes (Bld) [#/Vol] 0.59 10*3/uL Normal <0.87 [facility] Comment on above: Order Comment: Speci men Type: BLOOD SPECIMENOrdering Facility: [facility] Address: [address] [place] [address] Performed By: #### 5 7021-8 ####[facility] LABCLIA [id number] [address] LABCLIA [id number] [place] [address] Monocytes/100 WBC (Bld) 17.0 % Normal [facility] Comment on above: Order Comment: Speci men Type: BLOOD SPECIMENOrdering Facility: [facility] Address: [address] [place] [address] Performed By: #### 5 7021-8 ####[facility] LABCLIA [id number] [address] LABCLIA [id number] [place] [address] MYELO% 9.0 % Normal [facility] Comment on above: Order Comment: Speci men Type: BLOOD SPECIMENOrdering Facility: [facility] Address: [address] [place] [address] Performed By: #### 5 7021-8 ####[facility] LABCLIA [id number] [address] LABCLIA [id number] [place] [address] Neutrophils (Bld) [#/Vol] 1.39 10*3/uL Low 1.45-7.50 [facility] Comment on above: Order Comment: Speci men Type: BLOOD SPECIMENOrdering Facility: [facility] Address: [address] [place] [address] Performed By: #### 5 7021-8 ####[facility] LABCLIA [id number] [address] LABCLIA [id number] [place] [address] Neutrophils/100 WBC (Bld) 40.0 % Normal [facility] Comment on above: Order Comment: Speci men Type: BLOOD SPECIMENOrdering Facility: [facility] Address: [address] [place] [address] Performed By: #### 5 7021-8 ####[facility] LABCLIA [id number] [address] LABCLIA [id number] [place] [address] Nucleated RBC (Bld) [#/Vol] 0.07 10*3/uL High <0.01 [facility] Comment on above: Order Comment: Speci men Type: BLOOD SPECIMENOrdering Facility: [facility] Address: [address] [place] [address] Performed By: #### 5 7021-8 ####[facility] LABCLIA [id number] [address] LABCLIA [id number] [place] [address] Nucleated RBC/100 WBC (Bld) [Ratio] 2.0 /100 WBC Normal [facility] Comment on above: Order Comment: Speci men Type: BLOOD SPECIMENOrdering Facility: [facility] Address: [address] [place], [place] [address] Performed By: #### 5 7021-8 ####[facility] LABCLIA [id number] [address] LABCLIA [id number] [place] [address] Ovalocytes LM Ql (Bld) Few Normal [facility] Comment on above: Order Comment: Speci men Type: BLOOD SPECIMENOrdering Facility: [facility] Address: [address] [place], [place] [address] Performed By: #### 5 7021-8 ####[facility] LABCLIA [id number] [address] LABCLIA [id number] [place] [address] Platelet mean volume (Bld) [Entitic vol] Normal [facility] Comment on above: Order Comment: Speci men Type: BLOOD SPECIMENOrdering Facility: [facility] Address: [address] [address] Result Comment: Unab le to report Performed By: #### 5 7021-8 ####[facility] LABCLIA [id number] [address] LABCLIA [id number] [place] [address] Platelets (Bld) [#/Vol] 65 10*3/uL Low 150-400 [facility] Comment on above: Order Comment: Speci men Type: BLOOD SPECIMENOrdering Facility: [facility] Address: [address] [address] Performed By: #### 5 7021-8 ####[facility] LABCLIA [id number] [address] LABCLIA [id number] [place] [address] Platelets Estimate (Bld) [#/Vol] Decreased Normal [facility] Comment on above: Order Comment: Speci men Type: BLOOD SPECIMENOrdering Facility: [facility] Address: [address] Performed By: #### 5 7021-8 ####[facility] LABCLIA [id number] [address] LABCLIA [id number] [place] [address] Polychromasia LM Ql (Bld) Slight Normal [facility] Comment on above: Order Comment: Speci men Type: BLOOD SPECIMENOrdering Facility: [facility] Address: [address] [place] [address] Performed By: #### 5 7021-8 ####[facility] LABCLIA [id number] [address] LABCLIA [id number] [place] [address] RBC (Bld) [#/Vol] 2.35 10*6/uL Low 4.20-6.00 [facility] Comment on above: Order Comment: Speci men Type: BLOOD SPECIMENOrdering Facility: [facility] Address: [address] [place] [address] Performed By: #### 5 7021-8 ####[facility] LABCLIA [id number] [address] LABCLIA [id number] [place] [address] RED CELL MORPH Reviewed: see result s of individual morphologies Normal [facility] Comment on above: Order Comment: Speci men Type: BLOOD SPECIMENOrdering Facility: [facility] Address: [address] [place] [address] Performed By: #### 5 7021-8 ####[facility] LABCLIA [id number] [address] LABCLIA [id number] [place] [address] WBC (Bld) [#/Vol] 3.48 10*3/uL Low 3.70-11.00 [facility] Comment on above: Order Comment: Speci men Type: BLOOD SPECIMENOrdering Facility: [facility] Address: [address] [place] [address] Result Comment: Resu lts checked and verified.No clot detected. Performed By: #### 5 7021-8 ####[facility] LABCLIA [id number] [address] LABCLIA [id number] [place] [address] WBC Left Shift Ql (Bld) Present Normal [facility] Comment on above: Order Comment: Speci men Type: BLOOD SPECIMENOrdering Facility: [facility] Address: [address] [place] [address] Performed By: #### 5 7021-8 ####[facility] LABCLIA [id number] [address] LABCLIA [id number] [place] [address] Comprehensive metabolic 2000 panelon 10-23-2022 Albumin [Mass/Vol] 3.8 g/dL Low 3.9-4.9 [facility] Comment on above: Order Comment: Speci men Type: BLOOD SPECIMENOrdering Facility: [facility] Address: [address] [place] [address] Performed By: #### 2 4323-8 ####[facility] LABIA [id number] [place] [address] ALP [Catalytic activity/Vol] 166 U/L High 38-113 [facility] Comment on above: Order Comment: Speci men Type: BLOOD SPECIMENOrdering Facility: [facility] Address: [address] [address] Performed By: #### 2 4323-8 ####[facility] LABIA [id number] [place] [address] ALT [Catalytic activity/Vol] 63 U/L High 10-54 [facility] Comment on above: Order Comment: Speci men Type: BLOOD SPECIMENOrdering Facility: [facility] Address: [address] [address] Performed By: #### 2 4323-8 ####[facility] LABCLIA [id number] [place] [address] Anion gap [Moles/Vol] 12 mmol/L Normal 9-18 [facility] Comment on above: Order Comment: Speci men Type: BLOOD SPECIMENOrdering Facility: [facility] Address: [address] [place] [address] Performed By: #### 2 4323-8 ####[facility] LABCLIA [id number] [place] [address] AST [Catalytic activity/Vol] 36 U/L Normal 14-40 [facility] Comment on above: Order Comment: Speci men Type: BLOOD SPECIMENOrdering Facility: [facility] Address: [address] [place] [address] Performed By: #### 2 4323-8 ####[facility] LABCLIA [id number] [place] [address] Bilirubin [Mass/Vol] 0.9 mg/dL Normal 0.2-1.3 [facility] Comment on above: Order Comment: Speci men Type: BLOOD SPECIMENOrdering Facility: [facility] Address: [address] [place] [address] Performed By: #### 2 4323-8 ####[facility] LABCLIA [id number] [place] [address] Calcium [Mass/Vol] 9.2 mg/dL Normal 8.5-10.2 [facility] Comment on above: Order Comment: Speci men Type: BLOOD SPECIMENOrdering Facility: [facility] Address: [address] [place] [address] Performed By: #### 2 4323-8 ####[facility] LABCLIA [id number] [place] [address] Chloride [Moles/Vol] 101 mmol/L Normal 97-105 [facility] Comment on above: Order Comment: Speci men Type: BLOOD SPECIMENOrdering Facility: [facility] Address: [address] [place] [address] Performed By: #### 2 4323-8 ####[facility] LABCLIA [id number] [place] [address] CO2 [Moles/Vol] 29 mmol/L Normal 22-30 [facility] Comment on above: Order Comment: Speci men Type: BLOOD SPECIMENOrdering Facility: [facility] Address: [address] [place] [address] Performed By: #### 2 4323-8 ####[facility] LABCLIA [id number] [place] [address] Creatinine [Mass/Vol] 1.47 mg/dL High 0.73-1.22 [facility] Comment on above: Order Comment: Speci men Type: BLOOD SPECIMENOrdering Facility: [facility] Address: [address] [place] [address] Performed By: #### 2 4323-8 ####[facility] LABCLIA [id number] [place] [address] ESTIMATED GLOMERULAR FILTRATION RATE 47 mL/min/1.73m??? Low >=60 [facility] Comment on above: Order Comment: Speci men Type: BLOOD SPECIMENOrdering Facility: [facility] Address: [address] [place] [address] Result Comment: Faye mated Glomerular Filtration Rate [...] actual GFR. Performed By: #### 2 4323-8 ####[facility] LABCLIA [id number] [place] [address] Glucose [Mass/Vol] 192 mg/dL High 74-99 [facility] Comment on above: Order Comment: Speci men Type: BLOOD SPECIMENOrdering Facility: [facility] Address: [address] [place], [place] [address] Result Comment: The [place] [employer] (ADA) provides guidance for cutoff [...] Standards of Medical Care in Diabetes 2016, [place] [employer]. Diabetes Care. 2016.39(Suppl 1). Performed By: #### 2 4323-8 ####[facility] LABCLIA [id number] [place] [address] Potassium [Moles/Vol] 4.0 mmol/L Normal 3.7-5.1 [facility] Comment on above: Order Comment: Cristinai men Type: BLOOD SPECIMENOrdering Facility: [facility] Address: [address] [place] [address] Performed By: #### 2 4323-8 ####[facility] LABCLIA [id number] [place] [address] Protein [Mass/Vol] 7.1 g/dL Normal 6.3-8.0 [facility] Comment on above: Order Comment: Speci men Type: BLOOD SPECIMENOrdering Facility: [facility] Address: [address] [place], [place] [address] Performed By: #### 2 4323-8 ####[facility] LABCLIA [id number] [place] [address] Sodium [Moles/Vol] 142 mmol/L Normal 136-144 [facility] Comment on above: Order Comment: Speci men Type: BLOOD SPECIMENOrdering Facility: [facility] Address: [address] [address] Performed By: #### 2 4323-8 ####[facility] LABCLIA [id number] [place] [address] Urea nitrogen [Mass/Vol] 27 mg/dL High 9-24 [facility] Comment on above: Order Comment: Speci men Type: BLOOD SPECIMENOrdering Facility: [facility] Address: [address] [place] [address] Performed By: #### 2 4323-8 ####[facility] LABCLIA [id number] [place] [address] CNPNon 10-17-2022 CNPN Normal [facility] CBC W Auto Differential pane l (Bld)on 10-16-2022 Anisocytosis Ql (Bld) Present Normal [facility] Comment on above: Order Comment: Speci men Type: BLOOD SPECIMENOrdering Facility: [facility] Address: [address] [place] [address] Performed By: #### 5 7021-8 ####[facility] LABCLIA [id number] [address] LABCLIA [id number] [place] [address] Basophils (Bld) [#/Vol] 0.03 10*3/uL Normal <0.11 [facility] Comment on above: Order Comment: Speci men Type: BLOOD SPECIMENOrdering Facility: [facility] Address: [address] [place] [address] Performed By: #### 5 7021-8 ####[facility] LABCLIA [id number] [address] LABCLIA [id number] [place] [address] Basophils/100 WBC (Bld) 1.0 % Normal [facility] Comment on above: Order Comment: Speci men Type: BLOOD SPECIMENOrdering Facility: [facility] Address: [address] [place] [address] Performed By: #### 5 7021-8 ####[facility] LABCLIA [id number] [address] LABCLIA [id number] [place] [address] Differential cell count method Nom (Bld) Manual Normal [facility] Comment on above: Order Comment: Speci men Type: BLOOD SPECIMENOrdering Facility: [facility] Address: [address] [place] [address] Performed By: #### 5 7021-8 ####[facility] LABCLIA [id number] [address] LABCLIA [id number] [place] [id number] Eosinophils (Bld) [#/Vol] 0.03 10*3/uL Normal <0.46 [facility] Comment on above: Order Comment: Speci men Type: BLOOD SPECIMENOrdering Facility: [facility] Address: [address] [place] [address] Performed By: #### 5 7021-8 ####[facility] LABCLIA [id number] [address] LABCLIA [id number] [place] [address] Eosinophils/100 WBC (Bld) 1.0 % Normal [facility] Comment on above: Order Comment: Speci men Type: BLOOD SPECIMENOrdering Facility: [facility] Address: [address] [place] [address] Performed By: #### 5 7021-8 ####[facility] LABCLIA [id number] [address] LABCLIA [id number] [place] [address] Erythrocyte distribution width (RBC) [Ratio] 23.0 % High 11.5-15.0 [facility] Comment on above: Order Comment: Speci men Type: BLOOD SPECIMENOrdering Facility: [facility] Address: [address] [place] [address] Performed By: #### 5 7021-8 ####[facility] LABCLIA [id number] [address] LABCLIA [id number] [place] [address] Giant platelets LM Ql (Bld) Occasional Normal [facility] Comment on above: Order Comment: Speci men Type: BLOOD SPECIMENOrdering Facility: [facility] Address: [address] [place] [address] Performed By: #### 5 7021-8 ####[facility] LABCLIA [id number] [address] LABCLIA [id number] [place] [id number] Hematocrit (Bld) [Volume fraction] 20.8 % Low 39.0-51.0 [facility] Comment on above: Order Comment: Speci men Type: BLOOD SPECIMENOrdering Facility: [facility] Address: [address] [place], [place] [address] Performed By: #### 5 7021-8 ####[facility] LABCLIA [id number] [address] LABIA [id number] [place] [address] Hemoglobin (Bld) [Mass/Vol] 6.4 g/dL Low 13.0-17.0 [facility] Comment on above: Order Comment: Speci men Type: BLOOD SPECIMENOrdering Facility: [facility] Address: [address] [place] [address] Performed By: #### 5 7021-8 ####[facility] LABCLIA [id number] [address] LABCLIA [id number] [place] [address] Lymphocytes (Bld) [#/Vol] 1.19 10*3/uL Normal 1.00-4.00 [facility] Comment on above: Order Comment: Speci men Type: BLOOD SPECIMENOrdering Facility: [facility] Address: [address] Performed By: #### 5 7021-8 ####[facility] LABCLIA [id number] [address] LABCLIA [id number] [place] [address] Lymphocytes/100 WBC (Bld) 35.0 % Normal [facility] Comment on above: Order Comment: Speci men Type: BLOOD SPECIMENOrdering Facility: [facility] Address: [address] Performed By: #### 5 7021-8 ####[facility] LABCLIA [id number] [address] LABCLIA [id number] [place] [address] MCH (RBC) [Entitic mass] 31.7 pg Normal 26.0-34.0 [facility] Comment on above: Order Comment: Speci men Type: BLOOD SPECIMENOrdering Facility: [facility] Address: [address] [place] [address] Performed By: #### 5 7021-8 ####[facility] LABCLIA [id number] [address] LABCLIA [id number] [place] [address] MCHC (RBC) [Mass/Vol] 30.8 g/dL Normal 30.5-36.0 [facility] Comment on above: Order Comment: Speci men Type: BLOOD SPECIMENOrdering Facility: [facility] Address: [address] [place] [address] Performed By: #### 5 7021-8 ####[facility] LABIA [id number] [address] LABCLIA [id number] [place] [address] MCV (RBC) [Entitic vol] 103.0 fL High 80.0-100.0 [facility] Comment on above: Order Comment: Speci men Type: BLOOD SPECIMENOrdering Facility: [facility] Address: [address] [place] [address] Performed By: #### 5 7021-8 ####[facility] LABCLIA [id number] [address] LABCLIA [id number] [place] [id number] Metamyelocytes/100 WBC (Bld) 2.0 % Normal [facility] Comment on above: Order Comment: Speci men Type: BLOOD SPECIMENOrdering Facility: [facility] Address: [address] [place], [place] [address] Performed By: #### 5 7021-8 ####[facility] LABCLIA [id number] [address] LABCLIA [id number] [place] [id number] Monocytes (Bld) [#/Vol] 0.54 10*3/uL Normal <0.87 [facility] Comment on above: Order Comment: Speci men Type: BLOOD SPECIMENOrdering Facility: [facility] Address: [address] [place] [address] Performed By: #### 5 7021-8 ####[facility] LABCLIA [id number] [address] LABCLIA [id number] [place] [address] Monocytes/100 WBC (Bld) 16.0 % Normal [facility] Comment on above: Order Comment: Speci men Type: BLOOD SPECIMENOrdering Facility: [facility] Address: [address] Performed By: #### 5 7021-8 ####[facility] LABCLIA [id number] [address] LABCLIA [id number] [place] [address] MYELO% 8.0 % Normal [facility] Comment on above: Order Comment: Speci men Type: BLOOD SPECIMENOrdering Facility: [facility] Address: [address] [address] Performed By: #### 5 7021-8 ####[facility] LABCLIA [id number] [address] LABCLIA [id number] [place] [address] Neutrophils (Bld) [#/Vol] 1.26 10*3/uL Low 1.45-7.50 [facility] Comment on above: Order Comment: Speci men Type: BLOOD SPECIMENOrdering Facility: [facility] Address: [address] Performed By: #### 5 7021-8 ####[facility] LABCLIA [id number] [address] LABCLIA [id number] [place] [address] Neutrophils/100 WBC (Bld) 37.0 % Normal [facility] Comment on above: Order Comment: Speci men Type: BLOOD SPECIMENOrdering Facility: [facility] Address: [address] [place] [address] Performed By: #### 5 7021-8 ####[facility] LABCLIA [id number] [address] LABCLIA [id number] [place] [address] Nucleated RBC (Bld) [#/Vol] 0.07 10*3/uL High <0.01 [facility] Comment on above: Order Comment: Speci men Type: BLOOD SPECIMENOrdering Facility: [facility] Address: [address] [place] [address] Performed By: #### 5 7021-8 ####[facility] LABCLIA [id number] [address] LABCLIA [id number] [place] [address] Nucleated RBC/100 WBC (Bld) [Ratio] 2.0 /100 WBC Normal [facility] Comment on above: Order Comment: Speci men Type: BLOOD SPECIMENOrdering Facility: [facility] Address: [address] [place] [address] Performed By: #### 5 7021-8 ####[facility] LABCLIA [id number] [address] LABCLIA [id number] [place] [address] Ovalocytes LM Ql (Bld) Few Normal [facility] Comment on above: Order Comment: Speci men Type: BLOOD SPECIMENOrdering Facility: [facility] Address: [address] [place] [address] Performed By: #### 5 7021-8 ####[facility] LABCLIA [id number] [address] LABCLIA [id number] [place] [address] Platelet mean volume (Bld) [Entitic vol] Normal [facility] Comment on above: Order Comment: Speci men Type: BLOOD SPECIMENOrdering Facility: [facility] Address: [address] [place] [address] Result Comment: Unab le to Report. Performed By: #### 5 7021-8 ####[facility] LABCLIA [id number] [address] LABCLIA [id number] [place] [address] Platelets (Bld) [#/Vol] 60 10*3/uL Low 150-400 [facility] Comment on above: Order Comment: Speci men Type: BLOOD SPECIMENOrdering Facility: [facility] Address: [address] [address] Result Comment: Resu lts checked and verified.No clot detected. Performed By: #### 5 7021-8 ####[facility] LABCLIA [id number] [address] LABCLIA [id number] [place] [address] Platelets Estimate (Bld) [#/Vol] Decreased Normal [facility] Comment on above: Order Comment: Speci men Type: BLOOD SPECIMENOrdering Facility: [facility] Address: [address] [address] Performed By: #### 5 7021-8 ####[facility] LABCLIA [id number] [address] LABCLIA [id number] [place] [address] Polychromasia LM Ql (Bld) Slight Normal [facility] Comment on above: Order Comment: Speci men Type: BLOOD SPECIMENOrdering Facility: [facility] Address: [address] [place] [address] Performed By: #### 5 7021-8 ####[facility] LABCLIA [id number] [address] LABCLIA [id number] [place] [address] RBC (Bld) [#/Vol] 2.02 10*6/uL Low 4.20-6.00 [facility] Comment on above: Order Comment: Speci men Type: BLOOD SPECIMENOrdering Facility: [facility] Address: [address] [place] [address] Performed By: #### 5 7021-8 ####[facility] LABCLIA [id number] [address] LABCLIA [id number] [place] [address] RED CELL MORPH Reviewed: see result s of individual morphologies Normal [facility] Comment on above: Order Comment: Speci men Type: BLOOD SPECIMENOrdering Facility: [facility] Address: [address] [place] [address] Performed By: #### 5 7021-8 ####[facility] LABCLIA [id number] [address] LABCLIA [id number] [place] [address] WBC (Bld) [#/Vol] 3.40 10*3/uL Low 3.70-11.00 [facility] Comment on above: Order Comment: Speci men Type: BLOOD SPECIMENOrdering Facility: [facility] Address: [address] [place] [address] Result Comment: Resu lts checked and verified.No clot detected. Performed By: #### 5 7021-8 ####[facility] LABCLIA [id number] [address] LABCLIA [id number] [place] [address] WBC Left Shift Ql (Bld) Present Normal [facility] Comment on above: Order Comment: Speci men Type: BLOOD SPECIMENOrdering Facility: [facility] Address: [address] [place] [address] Performed By: #### 5 7021-8 ####[facility] LABCLIA [id number] [address] LABCLIA [id number] [place] [address] Comprehensive metabolic 2000 panelon 10-16-2022 Albumin [Mass/Vol] 3.7 g/dL Low 3.9-4.9 [facility] Comment on above: Order Comment: Speci men Type: BLOOD SPECIMENOrdering Facility: [facility] Address: [address] [address] Performed By: #### 2 4323-8 ####[facility] LABCLIA [id number] [place] [address] ALP [Catalytic activity/Vol] 165 U/L High 38-113 [facility] Comment on above: Order Comment: Speci men Type: BLOOD SPECIMENOrdering Facility: [facility] Address: [address] [address] Performed By: #### 2 4323-8 ####[facility] LABIA [id number] [place] [address] ALT [Catalytic activity/Vol] 67 U/L High 10-54 [facility] Comment on above: Order Comment: Speci men Type: BLOOD SPECIMENOrdering Facility: [facility] Address: [address] [place] [address] Performed By: #### 2 4323-8 ####[facility] LABCLIA [id number] [place] [address] Anion gap [Moles/Vol] 12 mmol/L Normal 9-18 [facility] Comment on above: Order Comment: Speci men Type: BLOOD SPECIMENOrdering Facility: [facility] Address: [address] [place] [address] Performed By: #### 2 4323-8 ####[facility] LABCLIA [id number] [place] [address] AST [Catalytic activity/Vol] 36 U/L Normal 14-40 [facility] Comment on above: Order Comment: Speci men Type: BLOOD SPECIMENOrdering Facility: [facility] Address: [address] [place] [address] Performed By: #### 2 4323-8 ####[facility] LABCLIA [id number] [place] [address] Bilirubin [Mass/Vol] 0.8 mg/dL Normal 0.2-1.3 [facility] Comment on above: Order Comment: Speci men Type: BLOOD SPECIMENOrdering Facility: [facility] Address: [address] [place] [address] Performed By: #### 2 4323-8 ####[facility] LABCLIA [id number] [place] [address] Calcium [Mass/Vol] 9.2 mg/dL Normal 8.5-10.2 [facility] Comment on above: Order Comment: Speci men Type: BLOOD SPECIMENOrdering Facility: [facility] Address: [address] [place] [address] Performed By: #### 2 4323-8 ####[facility] LABCLIA [id number] [place] [address] Chloride [Moles/Vol] 100 mmol/L Normal 97-105 [facility] Comment on above: Order Comment: Speci men Type: BLOOD SPECIMENOrdering Facility: [facility] Address: [address] [address] Performed By: #### 2 4323-8 ####[facility] LABCLIA [id number] [place] [address] CO2 [Moles/Vol] 30 mmol/L Normal 22-30 [facility] Comment on above: Order Comment: Speci men Type: BLOOD SPECIMENOrdering Facility: [facility] Address: [address] [address] Performed By: #### 2 4323-8 ####[facility] LABCLIA [id number] [place] [address] Creatinine [Mass/Vol] 1.54 mg/dL High 0.73-1.22 [facility] Comment on above: Order Comment: Speci men Type: BLOOD SPECIMENOrdering Facility: [facility] Address: [address] [place] [address] Performed By: #### 2 4323-8 ####[facility] LABCLIA [id number] [place] [address] ESTIMATED GLOMERULAR FILTRATION RATE 44 mL/min/1.73m??? Low >=60 [facility] Comment on above: Order Comment: Speci men Type: BLOOD SPECIMENOrdering Facility: [facility] Address: [address] [place] [address] Result Comment: Faye mated Glomerular Filtration Rate [...] actual GFR. Performed By: #### 2 4323-8 ####[facility] LABCLIA [id number] [place] [address] Glucose [Mass/Vol] 145 mg/dL High 74-99 [facility] Comment on above: Order Comment: Speci men Type: BLOOD SPECIMENOrdering Facility: [facility] Address: [address] [place] [address] Result Comment: The [place] Diabetes Association (ADA) provides guidance for cutoff [...] Standards of Medical Care in Diabetes 2016, [place] [employer]. Diabetes Care. 2016.39(Suppl 1). Performed By: #### 2 4323-8 ####[facility] LABCLIA [id number] [place] [address] Potassium [Moles/Vol] 4.0 mmol/L Normal 3.7-5.1 [facility] Comment on above: Order Comment: [facility] Type: BLOOD SPECIMENOrdering Facility: [facility] Address: [address] [place] [address] Performed By: #### 2 4323-8 ####[facility] LABCLIA [id number] [place] [address] Protein [Mass/Vol] 6.9 g/dL Normal 6.3-8.0 [facility] Comment on above: Order Comment: Speci men Type: BLOOD SPECIMENOrdering Facility: [facility] Address: [address] [place] [address] Performed By: #### 2 4323-8 ####[facility] LABCLIA [id number] [place] [address] Sodium [Moles/Vol] 142 mmol/L Normal 136-144 [facility] Comment on above: Order Comment: Speci men Type: BLOOD SPECIMENOrdering Facility: [facility] Address: [address] [place], [place] [address] Performed By: #### 2 4323-8 ####[facility] LABCLIA [id number] [place] [address] Urea nitrogen [Mass/Vol] 26 mg/dL High 9-24 [facility] Comment on above: Order Comment: Speci men Type: BLOOD SPECIMENOrdering Facility: [facility] Address: [address] [address] Performed By: #### 2 4323-8 ####[facility] LABCLIA [id number] [place] [address] HEMOGRAM AND PLATELon 2022 Hematocrit (Bld) [Volume fraction] 19.3 % Critically low 42.0-54.0 [facility] Comment on above: Performed By: #### T NS, PRBC #### [facility] [address] [place] [address] Dr. Benito To Hemoglobin (Bld) [Mass/Vol] 6.3 g/dL Critically low 14.0-18.0 [facility] Comment on above: Performed By: #### T NS, PRBC #### [facility] [address] [place] [address] Dr. Benito To MCH (RBC) [Entitic mass] 32.6 pg Normal 25.9-34.0 [facility] Comment on above: Performed By: #### T NS, PRBC #### [facility] [address] [place] [address] Dr. Benito To MCHC (RBC) [Mass/Vol] 32.6 g/dL Normal 29.9-35.2 [facility] Comment on above: Performed By: #### T NS, PRBC #### [facility] [address] [place] [address] Dr. Benito To MCV (RBC) [Entitic vol] 100.0 fL Critically high 80.0-94.0 [facility] Comment on above: Performed By: #### T NS, PRBC #### [facility] [address] [place], [place] [address] Dr. Benito To PLT 53 103/ul Critically low 150-450 [facility] Comment on above: Performed By: #### T NS, PRBC #### [facility] [address] [address] [address] Benito To RBC 1.93 106/ul Critically low 4.70-6.10 [facility] Comment on above: Performed By: #### T NS, PRBC #### [facility] [address] [address] [address] Benito To WBC 2.8 103/ul Critically low 4.0-11.0 [facility] Comment on above: Performed By: #### T NS, PRBC #### [facility] [address] [place] [address] Dr. Benito To PRBC LEUKOREDUCEDon 10-17-19 23 PRBC LEUKOREDUCED Cross Match Result Compatible Unit Blood Type A Pos Unit Number [id number] Status Information Transfused Product ID Red Blood Cells Product Code [id number] Normal [facility] Comment on above: Performed By: #### T NS, PRBC #### [facility] [address] [address] [address] Benito To TYPE AND SCREENon 10-16-2022 TYPE AND SCREEN Negative Normal [facility] Comment on above: Performed By: #### T NS, PRBC #### [facility] [address] [place] [address] Dr. Benito To CNOVSPon 10-15-2022 CNOVSP Normal [facility] CBC W Auto Differential pane l (Bld)on 10-09-2022 Anisocytosis Ql (Bld) Present Normal [facility] Comment on above: Order Comment: Speci men Type: BLOOD SPECIMENOrdering Facility: [facility] Address: [address] [place], [place] [address] Performed By: #### 5 7021-8 ####[facility] LABCLIA [id number] [facility] [id number] [address] [place] [address] LABCLIA [id number] [place] [address] Basophils (Bld) [#/Vol] 0.03 10*3/uL Normal <0.11 [facility] Comment on above: Order Comment: Speci men Type: BLOOD SPECIMENOrdering Facility: [facility] Address: [address] [place] [address] Performed By: #### 5 7021-8 ####[facility] LABCLIA [id number] [address] LABCLIA [id number] [place] [address] Basophils/100 WBC (Bld) 1.0 % Normal [facility] Comment on above: Order Comment: Speci men Type: BLOOD SPECIMENOrdering Facility: [facility] Address: [address] [place] [address] Performed By: #### 5 7021-8 ####[facility] LABCLIA [id number] [address] LABCLIA [id number] [place] [address] Differential cell count method Nom (Bld) Manual Normal [facility] Comment on above: Order Comment: Speci men Type: BLOOD SPECIMENOrdering Facility: [facility] Address: [address] [place], [place] [address] Performed By: #### 5 7021-8 ####[facility] LABCLIA [id number] [address] LABCLIA [id number] [place] [address] Eosinophils (Bld) [#/Vol] 0.09 10*3/uL Normal <0.46 [facility] Comment on above: Order Comment: Speci men Type: BLOOD SPECIMENOrdering Facility: [facility] Address: [address] [place], [place] [address] Performed By: #### 5 7021-8 ####[facility] LABCLIA [id number] [address] LABCLIA [id number] [place] [address] Eosinophils/100 WBC (Bld) 3.0 % Normal [facility] Comment on above: Order Comment: Speci men Type: BLOOD SPECIMENOrdering Facility: [facility] Address: [address] [place] [address] Performed By: #### 5 7021-8 ####[facility] LABCLIA [id number] [address] LABCLIA [id number] [place] [address] Erythrocyte distribution width (RBC) [Ratio] 21.2 % High 11.5-15.0 [facility] Comment on above: Order Comment: Speci men Type: BLOOD SPECIMENOrdering Facility: [facility] Address: [address] [place] [address] Performed By: #### 5 7021-8 ####[facility] LABCLIA [id number] [address] LABCLIA [id number] [place] [address] Hematocrit (Bld) [Volume fraction] 24.0 % Low 39.0-51.0 [facility] Comment on above: Order Comment: Speci men Type: BLOOD SPECIMENOrdering Facility: [facility] Address: [address] [place], [place] [address] Performed By: #### 5 7021-8 ####[facility] LABCLIA [id number] [address] LABCLIA [id number] [place] [address] Hemoglobin (Bld) [Mass/Vol] 7.6 g/dL Low 13.0-17.0 [facility] Comment on above: Order Comment: Speci men Type: BLOOD SPECIMENOrdering Facility: [facility] Address: [address] [place] [address] Performed By: #### 5 7021-8 ####[facility] LABCLIA [id number] [address] LABCLIA [id number] [place] [address] Lymphocytes (Bld) [#/Vol] 1.31 10*3/uL Normal 1.00-4.00 [facility] Comment on above: Order Comment: Speci men Type: BLOOD SPECIMENOrdering Facility: [facility] Address: [address] [place] [address] Performed By: #### 5 7021-8 ####[facility] LABCLIA [id number] [address] LABCLIA [id number] [place] [address] Lymphocytes/100 WBC (Bld) 45.0 % Normal [facility] Comment on above: Order Comment: Speci men Type: BLOOD SPECIMENOrdering Facility: [facility] Address: [address] [place] [address] Performed By: #### 5 7021-8 ####[facility] LABCLIA [id number] [address] LABCLIA [id number] [place] [address] MCH (RBC) [Entitic mass] 31.7 pg Normal 26.0-34.0 [facility] Comment on above: Order Comment: Speci men Type: BLOOD SPECIMENOrdering Facility: [facility] Address: [address] [place] [address] Performed By: #### 5 7021-8 ####[facility] LABCLIA [id number] [address] LABCLIA [id number] [place] [address] MCHC (RBC) [Mass/Vol] 31.7 g/dL Normal 30.5-36.0 [facility] Comment on above: Order Comment: Speci men Type: BLOOD SPECIMENOrdering Facility: [facility] Address: [address] [place] [address] Performed By: #### 5 7021-8 ####[facility] LABCLIA [id number] [address] LABCLIA [id number] [place] [address] MCV (RBC) [Entitic vol] 100.0 fL Normal 80.0-100.0 [facility] Comment on above: Order Comment: Speci men Type: BLOOD SPECIMENOrdering Facility: [facility] Address: [address] [place] [address] Performed By: #### 5 7021-8 ####[facility] LABCLIA [id number] [address] LABCLIA [id number] [place] [address] Monocytes (Bld) [#/Vol] 0.41 10*3/uL Normal <0.87 [facility] Comment on above: Order Comment: Speci men Type: BLOOD SPECIMENOrdering Facility: [facility] Address: [address] [place], [place] [address] Performed By: #### 5 7021-8 ####[facility] LABCLIA [id number] [address] LABCLIA [id number] [place] [address] Monocytes/100 WBC (Bld) 14.0 % Normal [facility] Comment on above: Order Comment: Speci men Type: BLOOD SPECIMENOrdering Facility: [facility] Address: [address] [place] [address] Performed By: #### 5 7021-8 ####[facility] LABCLIA [id number] [address] LABCLIA [id number] [place] [address] MYELO% 9.0 % Normal [facility] Comment on above: Order Comment: Speci men Type: BLOOD SPECIMENOrdering Facility: [facility] Address: [address] [place] [address] Performed By: #### 5 7021-8 ####[facility] LABCLIA [id number] [address] LABCLIA [id number] [place] [address] Neutrophils (Bld) [#/Vol] 0.84 10*3/uL Low 1.45-7.50 [facility] Comment on above: Order Comment: Speci men Type: BLOOD SPECIMENOrdering Facility: [facility] Address: [address] [place] [address] Performed By: #### 5 7021-8 ####[facility] LABCLIA [id number] [address] LABCLIA [id number] [place] [address] Neutrophils/100 WBC (Bld) 29.0 % Normal [facility] Comment on above: Order Comment: Speci men Type: BLOOD SPECIMENOrdering Facility: [facility] Address: [address] [place] [address] Performed By: #### 5 7021-8 ####[facility] LABCLIA [id number] [address] [address] [facility] LABCLIA [id number] [place] [address] Nucleated RBC (Bld) [#/Vol] 10*3/uL Normal <0.01 [facility] Comment on above: Order Comment: Speci men Type: BLOOD SPECIMENOrdering Facility: [facility] Address: [address] [place], [place] [address] Performed By: #### 5 7021-8 ####[facility] LABCLIA [id number] [address] LABCLIA [id number] [place] [address] Nucleated RBC/100 WBC (Bld) [Ratio] 0.0 /100 WBC Normal [facility] Comment on above: Order Comment: Speci men Type: BLOOD SPECIMENOrdering Facility: [facility] Address: [address] [place] [address] Performed By: #### 5 7021-8 ####[facility] LABCLIA [id number] [address] LABCLIA [id number] [place] [address] Ovalocytes LM Ql (Bld) Few Normal [facility] Comment on above: Order Comment: Speci men Type: BLOOD SPECIMENOrdering Facility: [facility] Address: [address] [place] [address] Performed By: #### 5 7021-8 ####[facility] LABCLIA [id number] [address] LABCLIA [id number] [place] [address] Platelet mean volume (Bld) [Entitic vol] Normal [facility] Comment on above: Order Comment: Speci men Type: BLOOD SPECIMENOrdering Facility: [facility] Address: [address] [place] [address] Result Comment: Unab le to Report. Performed By: #### 5 7021-8 ####[facility] LABCLIA [id number] [address] LABCLIA [id number] [place] [address] Platelets (Bld) [#/Vol] 67 10*3/uL Low 150-400 [facility] Comment on above: Order Comment: Speci men Type: BLOOD SPECIMENOrdering Facility: [facility] Address: [address] [place] [address] Result Comment: Resu lts checked and verified.No clot detected. Performed By: #### 5 7021-8 ####[facility] LABCLIA [id number] [address] LABCLIA [id number] [place] [address] Platelets Estimate (Bld) [#/Vol] Decreased Normal [facility] Comment on above: Order Comment: Speci men Type: BLOOD SPECIMENOrdering Facility: [facility] Address: [address] [place] [address] Performed By: #### 5 7021-8 ####[facility] LABCLIA [id number] [address] LABCLIA [id number] [place] [address] Polychromasia LM Ql (Bld) Slight Normal [facility] Comment on above: Order Comment: Speci men Type: BLOOD SPECIMENOrdering Facility: [facility] Address: [address] [place] [address] Performed By: #### 5 7021-8 ####[facility] LABCLIA [id number] [place] [facility] [id number] LABCLIA [id number] [place] [address] RBC (Bld) [#/Vol] 2.40 10*6/uL Low 4.20-6.00 [facility] Comment on above: Order Comment: Speci men Type: BLOOD SPECIMENOrdering Facility: [facility] Address: [address] [place] [address] Performed By: #### 5 7021-8 ####[facility] LABCLIA [id number] [address] LABCLIA [id number] [place] [address] RED CELL MORPH Reviewed: see result s of individual morphologies Normal [facility] Comment on above: Order Comment: Speci men Type: BLOOD SPECIMENOrdering Facility: [facility] Address: [address] [place] [address] Performed By: #### 5 7021-8 ####[facility] LABCLIA [id number] [address] LABCLIA [id number] [place] [address] WBC (Bld) [#/Vol] 2.90 10*3/uL Low 3.70-11.00 [facility] Comment on above: Order Comment: Speci men Type: BLOOD SPECIMENOrdering Facility: [facility] Address: [address] [place] [address] Result Comment: Resu lts checked and verified.No clot detected. Performed By: #### 5 7021-8 ####[facility] LABCLIA [id number] [address] LABCLIA [id number] [place] [address] WBC Left Shift Ql (Bld) Present Normal [facility] Comment on above: Order Comment: Speci men Type: BLOOD SPECIMENOrdering Facility: [facility] Address: [address] [place] [address] Performed By: #### 5 7021-8 ####[facility] LABCLIA [id number] [address] LABCLIA [id number] [place] [address] CNOVSPon 10-09-2022 CNOVSP Normal [facility] metabolic 2000 panelon 10-09-2022 Albumin [Mass/Vol] 3.7 g/dL Low 3.9-4.9 [facility] Comment on above: Order Comment: Speci men Type: BLOOD SPECIMENOrdering Facility: [facility] Address: [address] [place] [address] Performed By: #### 2 4323-8 ####[facility] LABCLIA [id number] [place] [address] [place] ALP [Catalytic activity/Vol] 154 U/L High 38-113 [facility] Comment on above: Order Comment: Speci men Type: BLOOD SPECIMENOrdering Facility: [facility] Address: [address] [place] [address] Performed By: #### 2 4323-8 ####[facility] LABCLIA [id number] [place] [address] [place] ALT [Catalytic activity/Vol] 78 U/L High 10-54 [facility] Comment on above: Order Comment: Speci men Type: BLOOD SPECIMENOrdering Facility: [facility] Address: [address] [place] [address] Performed By: #### 2 4323-8 ####[facility] LABCLIA [id number] [place] [address] [place] Anion gap [Moles/Vol] 11 mmol/L Normal 9-18 [facility] Comment on above: Order Comment: Speci men Type: BLOOD SPECIMENOrdering Facility: [facility] Address: [address] [address] Performed By: #### 2 4323-8 ####[facility] LABCLIA [id number] [place] [address] [place] AST [Catalytic activity/Vol] 45 U/L High 14-40 [facility] Comment on above: Order Comment: Speci men Type: BLOOD SPECIMENOrdering Facility: [facility] Address: [address] Performed By: #### 2 4323-8 ####[facility] LABCLIA [id number] [place] [address] [place] Bilirubin [Mass/Vol] 0.7 mg/dL Normal 0.2-1.3 [facility] Comment on above: Order Comment: Speci men Type: BLOOD SPECIMENOrdering Facility: [facility] Address: [address] Performed By: #### 2 4323-8 ####[facility] LABCLIA [id number] [place] [address] [place] Calcium [Mass/Vol] 9.4 mg/dL Normal 8.5-10.2 [facility] Comment on above: Order Comment: Speci men Type: BLOOD SPECIMENOrdering Facility: [facility] Address: [address] Performed By: #### 2 4323-8 ####[facility] LABCLIA [id number] [place] [address] [place] Chloride [Moles/Vol] 102 mmol/L Normal 97-105 [facility] Comment on above: Order Comment: Speci men Type: BLOOD SPECIMENOrdering Facility: [facility] Address: [address] Performed By: #### 2 4323-8 ####[facility] LABCLIA [id number] [place] [address] [place] CO2 [Moles/Vol] 30 mmol/L Normal 22-30 [facility] Comment on above: Order Comment: Speci men Type: BLOOD SPECIMENOrdering Facility: [facility] Address: [address] [place] [address] Performed By: #### 2 4323-8 ####[facility] LABCLIA [id number] [address] [place] Creatinine [Mass/Vol] 1.38 mg/dL High 0.73-1.22 [facility] Comment on above: Order Comment: Speci men Type: BLOOD SPECIMENOrdering Facility: [facility] Address: [address] [place] [address] Performed By: #### 2 4323-8 ####[facility] LABIA [id number] [address] OF [facility] ESTIMATED GLOMERULAR FILTRATION RATE 51 mL/min/1.73m??? Low >=60 [facility] Comment on above: Order Comment: Speci men Type: BLOOD SPECIMENOrdering Facility: [facility] Address: [address] [place] [address] Result Comment: Faye mated Glomerular Filtration Rate [...] actual GFR. Performed By: #### 2 4323-8 ####[facility] LABCLIA [id number] [place] [address] [place] Glucose [Mass/Vol] 163 mg/dL High 74-99 [facility] Comment on above: Order Comment: Speci men Type: BLOOD SPECIMENOrdering Facility: [facility] Address: [address] [place] [address] Result Comment: The [place] [employer] (ADA) provides guidance for cutoff [...] Standards of Medical Care in Diabetes 2016, [place] [employer]. Diabetes Care. 2016.39(Suppl 1). Performed By: #### 2 4323-8 ####[facility] LABIA [id number] [place] [address] [place] Potassium [Moles/Vol] 4.7 mmol/L Normal 3.7-5.1 [facility] Comment on above: Order Comment: Speci men Type: BLOOD SPECIMENOrdering Facility: [facility] Address: [address] [address] Performed By: #### 2 4323-8 ####[facility] [id number] [place] [address] [place] Protein [Mass/Vol] 7.0 g/dL Normal 6.3-8.0 [facility] Comment on above: Order Comment: Speci men Type: BLOOD SPECIMENOrdering Facility: [facility] Address: [address] Performed By: #### 2 4323-8 ####[facility] LABIA [id number] [place] [address] [place] Sodium [Moles/Vol] 143 mmol/L Normal 136-144 [facility] Comment on above: Order Comment: Speci men Type: BLOOD SPECIMENOrdering Facility: [facility] Address: [address] Performed By: #### 2 4323-8 ####[facility] LABCLIA [id number] [place] [address] [place] Urea nitrogen [Mass/Vol] 24 mg/dL Normal 9-24 [facility] Comment on above: Order Comment: Speci men Type: BLOOD SPECIMENOrdering Facility: [facility] Address: [address] [place] [address] Performed By: #### 2 4323-8 ####[facility] LABCLIA [id number] [place] [address] [place] CBC W Auto Differential pane l (Bld)on 10-02-2022 Anisocytosis Ql (Bld) Present Normal [facility] Comment on above: Order Comment: Speci men Type: BLOOD SPECIMENOrdering Facility: [facility] Address: [address] [place] [address] Performed By: #### 5 7021-8 ####[facility] LABCLIA [id number] [address] LABIA [id number] [place] [address] Basophils (Bld) [#/Vol] 0.05 10*3/uL Normal <0.11 [facility] Comment on above: Order Comment: Speci men Type: BLOOD SPECIMENOrdering Facility: [facility] Address: [address] [place], [place] [address] Performed By: #### 5 7021-8 ####[facility] LABCLIA [id number] [address] LABCLIA [id number] [place] [address] Basophils/100 WBC (Bld) 2.0 % Normal [facility] Comment on above: Order Comment: Speci men Type: BLOOD SPECIMENOrdering Facility: [facility] Address: [address] [place], [place] [address] Performed By: #### 5 7021-8 ####[facility] LABCLIA [id number] [address] LABCLIA [id number] [place] [address] Differential cell count method Nom (Bld) Manual Normal [facility] Comment on above: Order Comment: Speci men Type: BLOOD SPECIMENOrdering Facility: [facility] Address: [address] Performed By: #### 5 7021-8 ####[facility] LABCLIA [id number] [address] LABCLIA [id number] [place] [address] Eosinophils (Bld) [#/Vol] 0.00 10*3/uL Normal <0.46 [facility] Comment on above: Order Comment: Speci men Type: BLOOD SPECIMENOrdering Facility: [facility] Address: [address] [place] [address] Performed By: #### 5 7021-8 ####[facility] LABCLIA [id number] [address] LABCLIA [id number] [place] [address] Eosinophils/100 WBC (Bld) 0.0 % Normal [facility] Comment on above: Order Comment: Speci men Type: BLOOD SPECIMENOrdering Facility: [facility] Address: [address] [place] [address] Performed By: #### 5 7021-8 ####[facility] LABCLIA [id number] [address] LABCLIA [id number] [place] [address] Erythrocyte distribution width (RBC) [Ratio] 18.1 % High 11.5-15.0 [facility] Comment on above: Order Comment: Speci men Type: BLOOD SPECIMENOrdering Facility: [facility] Address: [address] [place] [address] Performed By: #### 5 7021-8 ####[facility] LABCLIA [id number] [address] LABCLIA [id number] [place] [address] Giant platelets LM Ql (Bld) Occasional Normal [facility] Comment on above: Order Comment: Speci men Type: BLOOD SPECIMENOrdering Facility: [facility] Address: [address] [place] [address] Performed By: #### 5 7021-8 ####[facility] LABCLIA [id number] [address] LABCLIA [id number] [place] [address] Hematocrit (Bld) [Volume fraction] 24.4 % Low 39.0-51.0 [facility] Comment on above: Order Comment: Speci men Type: BLOOD SPECIMENOrdering Facility: [facility] Address: [address] [place] [address] Performed By: #### 5 7021-8 ####[facility] LABCLIA [id number] [address] LABCLIA [id number] [place] [address] Hemoglobin (Bld) [Mass/Vol] 7.8 g/dL Low 13.0-17.0 [facility] Comment on above: Order Comment: Speci men Type: BLOOD SPECIMENOrdering Facility: [facility] Address: [address] [place] [address] Performed By: #### 5 7021-8 ####[facility] LABCLIA [id number] [address] LABCLIA [id number] [place] [address] Lymphocytes (Bld) [#/Vol] 1.15 10*3/uL Normal 1.00-4.00 [facility] Comment on above: Order Comment: Speci men Type: BLOOD SPECIMENOrdering Facility: [facility] Address: [address] [place] [address] Performed By: #### 5 7021-8 ####[facility] LABCLIA [id number] [address] LABCLIA [id number] [place] [address] Lymphocytes/100 WBC (Bld) 42.0 % Normal [facility] Comment on above: Order Comment: Speci men Type: BLOOD SPECIMENOrdering Facility: [facility] Address: [address] [place] [address] Performed By: #### 5 7021-8 ####[facility] LABCLIA [id number] [address] LABCLIA [id number] [place] [address] MCH (RBC) [Entitic mass] 32.8 pg Normal 26.0-34.0 [facility] Comment on above: Order Comment: Speci men Type: BLOOD SPECIMENOrdering Facility: [facility] Address: [address] [place] [address] Performed By: #### 5 7021-8 ####[facility] LABCLIA [id number] [address] LABCLIA [id number] [place] [address] MCHC (RBC) [Mass/Vol] 32.0 g/dL Normal 30.5-36.0 [facility] Comment on above: Order Comment: Speci men Type: BLOOD SPECIMENOrdering Facility: [facility] Address: [address] [place] [address] Performed By: #### 5 7021-8 ####[facility] LABCLIA [id number] [address] LABCLIA [id number] [place] [address] MCV (RBC) [Entitic vol] 102.5 fL High 80.0-100.0 [facility] Comment on above: Order Comment: Speci men Type: BLOOD SPECIMENOrdering Facility: [facility] Address: [address] [place] [address] Performed By: #### 5 7021-8 ####[facility] LABCLIA [id number] [address] LABCLIA [id number] [place] [address] Metamyelocytes/100 WBC (Bld) 4.0 % Normal [facility] Comment on above: Order Comment: Speci men Type: BLOOD SPECIMENOrdering Facility: [facility] Address: [address] [place] [address] Performed By: #### 5 7021-8 ####[facility] LABCLIA [id number] [address] LABCLIA [id number] [place] [address] Monocytes (Bld) [#/Vol] 0.41 10*3/uL Normal <0.87 [facility] Comment on above: Order Comment: Speci men Type: BLOOD SPECIMENOrdering Facility: [facility] Address: [address] [place] [address] Performed By: #### 5 7021-8 ####[facility] LABCLIA [id number] [address] LABCLIA [id number] [place] [address] Monocytes/100 WBC (Bld) 15.0 % Normal [facility] Comment on above: Order Comment: Speci men Type: BLOOD SPECIMENOrdering Facility: [facility] Address: [address] [place] [address] Performed By: #### 5 7021-8 ####[facility] LABCLIA [id number] [address] LABCLIA [id number] [place] [address] MYELO% 6.0 % Normal [facility] Comment on above: Order Comment: Speci men Type: BLOOD SPECIMENOrdering Facility: [facility] Address: [address] [place] [address] Performed By: #### 5 7021-8 ####[facility] LABCLIA [id number] [address] LABCLIA [id number] [place] [address] Neutrophils (Bld) [#/Vol] 0.85 10*3/uL Low 1.45-7.50 [facility] Comment on above: Order Comment: Speci men Type: BLOOD SPECIMENOrdering Facility: [facility] Address: [address] [place], [place] [address] Performed By: #### 5 7021-8 ####[facility] LABCLIA [id number] [address] LABCLIA [id number] [place] [address] Neutrophils/100 WBC (Bld) 31.0 % Normal [facility] Comment on above: Order Comment: Speci men Type: BLOOD SPECIMENOrdering Facility: [facility] Address: [address] [place] [address] Performed By: #### 5 7021-8 ####[facility] LABCLIA [id number] [address] LABCLIA [id number] [place] [address] Nucleated RBC (Bld) [#/Vol] 10*3/uL Normal <0.01 [facility] Comment on above: Order Comment: Speci men Type: BLOOD SPECIMENOrdering Facility: [facility] Address: [address] [place] [address] Performed By: #### 5 7021-8 ####[facility] LABCLIA [id number] [address] LABCLIA [id number] [place] [address] Nucleated RBC/100 WBC (Bld) [Ratio] 0.0 /100 WBC Normal [facility] Comment on above: Order Comment: Speci men Type: BLOOD SPECIMENOrdering Facility: [facility] Address: [address] [place] [address] Performed By: #### 5 7021-8 ####[facility] LABCLIA [id number] [address] LABCLIA [id number] [place] [address] Ovalocytes LM Ql (Bld) Few Normal [facility] Comment on above: Order Comment: Speci men Type: BLOOD SPECIMENOrdering Facility: [facility] Address: [address] [place] [address] Performed By: #### 5 7021-8 ####[facility] LABCLIA [id number] [address] LABCLIA [id number] [place] [address] Platelet mean volume (Bld) [Entitic vol] Normal [facility] Comment on above: Order Comment: Speci men Type: BLOOD SPECIMENOrdering Facility: [facility] Address: [address] [place] [address] Result Comment: Unab le to report Performed By: #### 5 7021-8 ####[facility] LABCLIA [id number] [address] LABCLIA [id number] [place] [address] Platelets (Bld) [#/Vol] 64 10*3/uL Low 150-400 [facility] Comment on above: Order Comment: Speci men Type: BLOOD SPECIMENOrdering Facility: [facility] Address: [address] [place] [address] Result Comment: No c lot detected. Result rechecked. Performed By: #### 5 7021-8 ####[facility] LABCLIA [id number] [address] LABCLIA [id number] [place] [address] Platelets Estimate (Bld) [#/Vol] Decreased Normal [facility] Comment on above: Order Comment: Speci men Type: BLOOD SPECIMENOrdering Facility: [facility] Address: [address] [place] [address] Performed By: #### 5 7021-8 ####[facility] LABCLIA [id number] [address] LABCLIA [id number] [place] [address] RBC (Bld) [#/Vol] 2.38 10*6/uL Low 4.20-6.00 [facility] Comment on above: Order Comment: Speci men Type: BLOOD SPECIMENOrdering Facility: [facility] Address: [address] [place] [address] Performed By: #### 5 7021-8 ####[facility] LABCLIA [id number] [address] LABCLIA [id number] [place] [address] RED CELL MORPH Reviewed: see result s of individual morphologies Normal [facility] Comment on above: Order Comment: Speci men Type: BLOOD SPECIMENOrdering Facility: [facility] Address: [address] [place], [place] [address] Performed By: #### 5 7021-8 ####[facility] LABCLIA [id number] [address] LABCLIA [id number] [place] [address] WBC (Bld) [#/Vol] 2.74 10*3/uL Low 3.70-11.00 [facility] Comment on above: Order Comment: Speci men Type: BLOOD SPECIMENOrdering Facility: [facility] Address: [address] [place] [address] Performed By: #### 5 7021-8 ####[facility] LABCLIA [id number] [address] LABCLIA [id number] [place] [address] WBC Left Shift Ql (Bld) Present Normal [facility] Comment on above: Order Comment: Speci men Type: BLOOD SPECIMENOrdering Facility: [facility] Address: [address] [place] [address] Performed By: #### 5 7021-8 ####[facility] LABCLIA [id number] [address] LABCLIA [id number] [place] [address] CNPNon 10-02-2022 CNPN Normal [facility] metabolic 2000 panelon 10-02-2022 Albumin [Mass/Vol] 3.8 g/dL Low 3.9-4.9 [facility] Comment on above: Order Comment: Speci men Type: BLOOD SPECIMENOrdering Facility: [facility] Address: [address] [place] [address] Performed By: #### 2 4323-8 ####[facility] LABCLIA [id number] [place] [address] ALP [Catalytic activity/Vol] 155 U/L High 38-113 [facility] Comment on above: Order Comment: Speci men Type: BLOOD SPECIMENOrdering Facility: [facility] Address: [address] [place] [address] Performed By: #### 2 4323-8 ####[facility] LABCLIA [id number] [place] [address] ALT [Catalytic activity/Vol] 62 U/L High 10-54 [facility] Comment on above: Order Comment: Speci men Type: BLOOD SPECIMENOrdering Facility: [facility] Address: [address] [place] [address] Performed By: #### 2 4323-8 ####[facility] LABCLIA [id number] [place] [address] Anion gap [Moles/Vol] 9 mmol/L Normal 9-18 [facility] Comment on above: Order Comment: Speci men Type: BLOOD SPECIMENOrdering Facility: [facility] Address: [address] [place] [address] Performed By: #### 2 4323-8 ####[facility] LABCLIA [id number] [place] [address] AST [Catalytic activity/Vol] 40 U/L Normal 14-40 [facility] Comment on above: Order Comment: Speci men Type: BLOOD SPECIMENOrdering Facility: [facility] Address: [address] [place] [address] Performed By: #### 2 4323-8 ####[facility] LABCLIA [id number] [place] [address] Bilirubin [Mass/Vol] 0.9 mg/dL Normal 0.2-1.3 [facility] Comment on above: Order Comment: Speci men Type: BLOOD SPECIMENOrdering Facility: [facility] Address: [address] [place] [address] Performed By: #### 2 4323-8 ####[facility] LABCLIA [id number] [place] [address] Calcium [Mass/Vol] 9.2 mg/dL Normal 8.5-10.2 [facility] Comment on above: Order Comment: Speci men Type: BLOOD SPECIMENOrdering Facility: [facility] Address: [address] [place] [address] Performed By: #### 2 4323-8 ####[facility] LABCLIA [id number] [place] [address] Chloride [Moles/Vol] 99 mmol/L Normal 97-105 [facility] Comment on above: Order Comment: Speci men Type: BLOOD SPECIMENOrdering Facility: [facility] Address: [address] [place] [address] Performed By: #### 2 4323-8 ####[facility] LABCLIA [id number] [place] [address] CO2 [Moles/Vol] 33 mmol/L High 22-30 [facility] Comment on above: Order Comment: Speci men Type: BLOOD SPECIMENOrdering Facility: [facility] Address: [address] [place] [address] Performed By: #### 2 4323-8 ####[facility] LABCLIA [id number] [place] [address] Creatinine [Mass/Vol] 1.47 mg/dL High 0.73-1.22 [facility] Comment on above: Order Comment: Davi avendaño Type: BLOOD SPECIMENOrdering Facility: [facility] Address: [address] [place] [address] Performed By: #### 2 4323-8 ####[facility] LABCLIA [id number] [place] [address] ESTIMATED GLOMERULAR FILTRATION RATE 47 mL/min/1.73m??? Low >=60 [facility] Comment on above: Order Comment: Davi avendaño Type: BLOOD SPECIMENOrdering Facility: [facility] Address: [address] [place] [address] Result Comment: Faye mated Glomerular Filtration Rate [...] actual GFR. Performed By: #### 2 4323-8 ####[facility] LABCLIA [id number] [place] [address] Glucose [Mass/Vol] 158 mg/dL High 74-99 [facility] Comment on above: Order Comment: Cristinaiman avendaño Type: BLOOD SPECIMENOrdering Facility: [facility] Address: [address] [place] [address] Result Comment: The [place] [employer] (ADA) provides guidance for cutoff [...] Standards of Medical Care in Diabetes 2016, [place] [employer]. Diabetes Care. 2016.39(Suppl 1). Performed By: #### 2 4323-8 ####[facility] LABCLIA [id number] [place] [address] Potassium [Moles/Vol] 3.9 mmol/L Normal 3.7-5.1 [facility] Comment on above: Order Comment: Speci men Type: BLOOD SPECIMENOrdering Facility: [facility] Address: [address] [place] [address] Performed By: #### 2 4323-8 ####[facility] LABCLIA [id number] [place] [address] Protein [Mass/Vol] 6.8 g/dL Normal 6.3-8.0 [facility] Comment on above: Order Comment: Speci men Type: BLOOD SPECIMENOrdering Facility: [facility] Address: [address] [place] [address] Performed By: #### 2 4323-8 ####[facility] LABCLIA [id number] [place] [address] Sodium [Moles/Vol] 141 mmol/L Normal 136-144 [facility] Comment on above: Order Comment: Speci men Type: BLOOD SPECIMENOrdering Facility: [facility] Address: [address] [place] [address] Performed By: #### 2 4323-8 ####[facility] LABCLIA [id number] [place] [address] Urea nitrogen [Mass/Vol] 30 mg/dL High 9-24 [facility] Comment on above: Order Comment: Speci men Type: BLOOD SPECIMENOrdering Facility: [facility] Address: [address] [place] [address] Performed By: #### 2 4323-8 ####[facility] LABCLIA [id number] [place] [address] HEMOGLOBIN AND HEMATOCRITon 10-02-2022 Hematocrit (Bld) [Volume fraction] 24.6 % Critically low 42.0-54.0 [facility] Comment on above: Performed By: #### H GBHCT #### [facility] [address] [place] [address] Dr. Benito To Hemoglobin (Bld) [Mass/Vol] 7.9 g/dL Critically low 14.0-18.0 [facility] Comment on above: Performed By: #### H GBHCT #### [facility] [address] [place] [address] Dr. Benito To TYPE AND SCREENon 10-02-2022 TYPE AND SCREEN Negative Normal [facility] Comment on above: Performed By: #### T NS, PRBC #### [facility] [address] [place] [address] Dr. Benito To PRBC LEUKOREDUCEDon 10-02-19 ABO and Rh group Nom (Bld) Cross Match Result Compatible Unit Blood Type A Pos Unit Number [id number] Status Information Transfused Product ID Red Blood Cells Product Code [id number] Cross Match Result Compatible Unit Blood Type A Pos Unit Number [id number] Status Information Transfused Product ID Red Blood Cells Product Code [id number] Normal [facility] Comment on above: Performed By: #### T NS, PRBC #### [facility] [address] [place] [address] Dr. Benito To ABO and Rh group Nom (Bld) Cross Match Result Compatible Unit Blood Type A Pos Unit Number [id number] Status Information Transfused Product ID Red Blood Cells Product Code [id number] Cross Match Result Compatible Unit Blood Type A Pos Unit Number [id number] Status Information Transfused Product ID Red Blood Cells Product Code [id number] Normal [facility] Comment on above: Performed By: #### P RBC, TNS #### [facility] [address] [place] [address] Dr. Benito To ABO and Rh group Nom (Bld) Cross Match Result Compatible Unit Blood Type A Pos Unit Number [id number] Status Information Released Specimen Exp Date [id number] Product ID Red Blood Cells Product Code [id number] Cross Match Result Compatible Unit Blood Type A Pos Unit Number [id number] Status Information Transfused Product ID Red Blood Cells Product Code [id number] Normal [facility] Comment on above: Performed By: #### P RBC, TNS #### [facility] [address] [place] [address] [address] Benito To PRBC LEUKOREDUCED Cross Match Result Compatible Unit Blood Type O Neg Unit Number [id number] Status Information Transfused Product ID Red Blood Cells Product Code [id number] Normal [facility] Comment on above: Performed By: #### P RBC, TNS #### [facility] [address] [place] [address] [address] Benito To CBC W Auto Differential pane l (Bld)on 09-25-2022 Anisocytosis Ql (Bld) Present Normal [facility] Comment on above: Order Comment: Speci men Type: BLOOD SPECIMENOrdering Facility: [facility] Address: [address] [place] [address] Performed By: #### 5 7021-8 ####[facility] LABCLIA [id number] [address] LABCLIA [id number] [place] [address] Basophils (Bld) [#/Vol] 0.00 10*3/uL Normal <0.11 [facility] Comment on above: Order Comment: Speci men Type: BLOOD SPECIMENOrdering Facility: [facility] Address: [address] [place] [address] Performed By: #### 5 7021-8 ####[facility] LABCLIA [id number] [address] LABCLIA [id number] [place] [address] Basophils/100 WBC (Bld) 0.0 % Normal [facility] Comment on above: Order Comment: Speci men Type: BLOOD SPECIMENOrdering Facility: [facility] Address: [address] [place] [address] Performed By: #### 5 7021-8 ####[facility] LABCLIA [id number] [address] LABCLIA [id number] [place] [address] Differential cell count method Nom (Bld) Manual Normal [facility] Comment on above: Order Comment: Speci men Type: BLOOD SPECIMENOrdering Facility: [facility] Address: [address] [place] [address] Performed By: #### 5 7021-8 ####[facility] LABCLIA [id number] [address] LABCLIA [id number] [place] [address] Eosinophils (Bld) [#/Vol] 0.00 10*3/uL Normal <0.46 [facility] Comment on above: Order Comment: Speci men Type: BLOOD SPECIMENOrdering Facility: [facility] Address: [address] [place] [address] Performed By: #### 5 7021-8 ####[facility] LABCLIA [id number] [address] LABCLIA [id number] [place] [address] Eosinophils/100 WBC (Bld) 0.0 % Normal [facility] Comment on above: Order Comment: Speci men Type: BLOOD SPECIMENOrdering Facility: [facility] Address: [address] [place] [address] Performed By: #### 5 7021-8 ####[facility] LABCLIA [id number] [place] [address] [facility] LABCLIA [id number] [place] [address] Erythrocyte distribution width (RBC) [Ratio] 18.6 % High 11.5-15.0 [facility] Comment on above: Order Comment: Speci men Type: BLOOD SPECIMENOrdering Facility: [facility] Address: [address] [place] [address] Performed By: #### 5 7021-8 ####[facility] LABCLIA [id number] [address] LABCLIA [id number] [place] [address] Hematocrit (Bld) [Volume fraction] 21.7 % Low 39.0-51.0 [facility] Comment on above: Order Comment: Speci men Type: BLOOD SPECIMENOrdering Facility: [facility] Address: [address] [place] [address] Performed By: #### 5 7021-8 ####[facility] LABCLIA [id number] [address] LABCLIA [id number] [place] [address] Hemoglobin (Bld) [Mass/Vol] 6.9 g/dL Low 13.0-17.0 [facility] Comment on above: Order Comment: Speci men Type: BLOOD SPECIMENOrdering Facility: [facility] Address: [address] [place], [place] [address] Performed By: #### 5 7021-8 ####[facility] LABCLIA [id number] [address] LABIA [id number] [place] [address] Lymphocytes (Bld) [#/Vol] 1.20 10*3/uL Normal 1.00-4.00 [facility] Comment on above: Order Comment: Speci men Type: BLOOD SPECIMENOrdering Facility: [facility] [facility] Address: [address] [place], [place] [address] Performed By: #### 5 7021-8 ####[facility] LABCLIA [id number] [address] LABCLIA [id number] [place] [address] Lymphocytes/100 WBC (Bld) 32.0 % Normal [facility] Comment on above: Order Comment: Speci men Type: BLOOD SPECIMENOrdering Facility: [facility] Address: [address] [place], [place] [address] Performed By: #### 5 7021-8 ####[facility] LABCLIA [id number] [address] LABCLIA [id number] [place] [address] MCH (RBC) [Entitic mass] 32.1 pg Normal 26.0-34.0 [facility] Comment on above: Order Comment: Speci men Type: BLOOD SPECIMENOrdering Facility: [facility] Address: [address] [place], [place] [address] Performed By: #### 5 7021-8 ####[facility] LABCLIA [id number] [address] LABCLIA [id number] [place] [address] MCHC (RBC) [Mass/Vol] 31.8 g/dL Normal 30.5-36.0 [facility] Comment on above: Order Comment: Speci men Type: BLOOD SPECIMENOrdering Facility: [facility] Address: [address] [place] [address] Performed By: #### 5 7021-8 ####[facility] LABCLIA [id number] [place] [address] [facility] LABCLIA [id number] [place] [address] MCV (RBC) [Entitic vol] 100.9 fL High 80.0-100.0 [facility] Comment on above: Order Comment: Speci men Type: BLOOD SPECIMENOrdering Facility: [facility] Address: [address] [place] [address] Performed By: #### 5 7021-8 ####[facility] LABCLIA [id number] [address] LABCLIA [id number] [place] [address] Metamyelocytes/100 WBC (Bld) 1.0 % Normal [facility] Comment on above: Order Comment: Speci men Type: BLOOD SPECIMENOrdering Facility: [facility] Address: [address] [place] [address] Performed By: #### 5 7021-8 ####[facility] LABCLIA [id number] [address] LABCLIA [id number] [place] [address] Monocytes (Bld) [#/Vol] 0.41 10*3/uL Normal <0.87 [facility] Comment on above: Order Comment: Speci men Type: BLOOD SPECIMENOrdering Facility: [facility] Address: [address] [place], [place] [address] Performed By: #### 5 7021-8 ####[facility] LABCLIA [id number] [address] LABCLIA [id number] [place] [address] Monocytes/100 WBC (Bld) 11.0 % Normal [facility] Comment on above: Order Comment: Speci men Type: BLOOD SPECIMENOrdering Facility: [facility] Address: [address] [place] [address] Performed By: #### 5 7021-8 ####[facility] LABCLIA [id number] [address] LABCLIA [id number] [place] [address] MYELO% 10.0 % Normal [facility] Comment on above: Order Comment: Speci men Type: BLOOD SPECIMENOrdering Facility: [facility] Address: [address] [place], [place] [address] Performed By: #### 5 7021-8 ####[facility] LABCLIA [id number] [address] LABCLIA [id number] [place] [address] Neutrophils (Bld) [#/Vol] 1.73 10*3/uL Normal 1.45-7.50 [facility] Comment on above: Order Comment: Speci men Type: BLOOD SPECIMENOrdering Facility: [facility] Address: [address] [place] [address] Performed By: #### 5 7021-8 ####[facility] LABCLIA [id number] [address] LABCLIA [id number] [place] [address] Neutrophils/100 WBC (Bld) 46.0 % Normal [facility] Comment on above: Order Comment: Speci men Type: BLOOD SPECIMENOrdering Facility: [facility] Address: [address] [place] [address] Performed By: #### 5 7021-8 ####[facility] LABCLIA [id number] [address] LABCLIA [id number] [place] [address] Nucleated RBC (Bld) [#/Vol] 10*3/uL Normal <0.01 [facility] Comment on above: Order Comment: Speci men Type: BLOOD SPECIMENOrdering Facility: [facility] Address: [address] [place] [address] Performed By: #### 5 7021-8 ####[facility] LABCLIA [id number] [place] [address] [facility] LABCLIA [id number] [place] [address] Nucleated RBC/100 WBC (Bld) [Ratio] 0.0 /100 WBC Normal [facility] Comment on above: Order Comment: Speci men Type: BLOOD SPECIMENOrdering Facility: [facility] Address: [address] [place] [address] Performed By: #### 5 7021-8 ####[facility] LABCLIA [id number] [address] LABCLIA [id number] [place] [address] Ovalocytes LM Ql (Bld) Few Normal [facility] Comment on above: Order Comment: Speci men Type: BLOOD SPECIMENOrdering Facility: [facility] Address: [address] [place] [address] Performed By: #### 5 7021-8 ####[facility] LABCLIA [id number] [address] LABCLIA [id number] [place] [address] Platelet mean volume (Bld) [Entitic vol] Normal [facility] Comment on above: Order Comment: Speci men Type: BLOOD SPECIMENOrdering Facility: [facility] Address: [address] [place], [place] [address] Result Comment: Unab le to Report. Performed By: #### 5 7021-8 ####[facility] LABCLIA [id number] [place] [address] LABCLIA [id number] [place] [address] Platelets (Bld) [#/Vol] 71 10*3/uL Low 150-400 [facility] Comment on above: Order Comment: Speci men Type: BLOOD SPECIMENOrdering Facility: [facility] Address: [address] [place] [address] Result Comment: No c lot detected. Checked and Verified Performed By: #### 5 7021-8 ####[facility] LABCLIA [id number] [address] LABCLIA [id number] [place] [address] Platelets Estimate (Bld) [#/Vol] Decreased Normal [facility] Comment on above: Order Comment: Speci men Type: BLOOD SPECIMENOrdering Facility: [facility] Address: [address] [place] [address] Performed By: #### 5 7021-8 ####[facility] LABCLIA [id number] [address] LABCLIA [id number] [place] [address] RBC (Bld) [#/Vol] 2.15 10*6/uL Low 4.20-6.00 [facility] Comment on above: Order Comment: Speci men Type: BLOOD SPECIMENOrdering Facility: [facility] Address: [address] [place] [address] Performed By: #### 5 7021-8 ####[facility] LABCLIA [id number] [address] LABCLIA [id number] [place] [address] RED CELL MORPH Reviewed: see result s of individual morphologies Normal [facility] Comment on above: Order Comment: Speci men Type: BLOOD SPECIMENOrdering Facility: [facility] Address: [address] [place] [address] Performed By: #### 5 7021-8 ####[facility] LABCLIA [id number] [address] LABCLIA [id number] [place] [address] WBC (Bld) [#/Vol] 3.75 10*3/uL Normal 3.70-11.00 [facility] Comment on above: Order Comment: Speci men Type: BLOOD SPECIMENOrdering Facility: [facility] Address: [address] [place] [address] Result Comment: Resu lts checked and verified.No clot detected. Performed By: #### 5 7021-8 ####[facility] LABCLIA [id number] [address] LABCLIA [id number] [place] [address] WBC Left Shift Ql (Bld) Present Normal [facility] Comment on above: Order Comment: Speci men Type: BLOOD SPECIMENOrdering Facility: [facility] Address: [address] [place] [address] Performed By: #### 5 7021-8 ####[facility] LABCLIA [id number] [address] LABCLIA [id number] [place] [address] CNPNon 09-25-2022 CNPN Normal [facility] Comprehensive metabolic 2000 panelon 09-25-2022 Albumin [Mass/Vol] 3.7 g/dL Low 3.9-4.9 [facility] Comment on above: Order Comment: Speci men Type: BLOOD SPECIMENOrdering Facility: [facility] Address: [address] [place] [address] Performed By: #### 2 4323-8 ####[facility] LABCLIA [id number] [place] [address] ALP [Catalytic activity/Vol] 159 U/L High 38-113 [facility] Comment on above: Order Comment: Speci men Type: BLOOD SPECIMENOrdering Facility: [facility] Address: [address] [place] [address] Performed By: #### 2 4323-8 ####[facility] LABCLIA [id number] [place] [address] ALT [Catalytic activity/Vol] 59 U/L High 10-54 [facility] Comment on above: Order Comment: Speci men Type: BLOOD SPECIMENOrdering Facility: [facility] Address: [address] [place] [address] Performed By: #### 2 4323-8 ####[facility] LABCLIA [id number] [place] [address] Anion gap [Moles/Vol] 9 mmol/L Normal 9-18 [facility] Comment on above: Order Comment: Speci men Type: BLOOD SPECIMENOrdering Facility: [facility] Address: [address] [place] [address] Performed By: #### 2 4323-8 ####[facility] LABCLIA [id number] [place] [address] AST [Catalytic activity/Vol] 35 U/L Normal 14-40 [facility] Comment on above: Order Comment: Speci men Type: BLOOD SPECIMENOrdering Facility: [facility] Address: [address] [place] [address] Performed By: #### 2 4323-8 ####[facility] LABCLIA [id number] [place] [address] Bilirubin [Mass/Vol] 1.0 mg/dL Normal 0.2-1.3 [facility] Comment on above: Order Comment: Speci men Type: BLOOD SPECIMENOrdering Facility: [facility] Address: [address] [address] Performed By: #### 2 4323-8 ####[facility] LABCLIA [id number] [place] [address] Calcium [Mass/Vol] 9.1 mg/dL Normal 8.5-10.2 [facility] Comment on above: Order Comment: Speci men Type: BLOOD SPECIMENOrdering Facility: [facility] Address: [address] [address] Performed By: #### 2 4323-8 ####[facility] LABCLIA [id number] [place] [address] Chloride [Moles/Vol] 101 mmol/L Normal 97-105 [facility] Comment on above: Order Comment: Speci men Type: BLOOD SPECIMENOrdering Facility: [facility] Address: [address] [address] Performed By: #### 2 4323-8 ####[facility] LABCLIA [id number] [place] [address] CO2 [Moles/Vol] 31 mmol/L High 22-30 [facility] Comment on above: Order Comment: Speci men Type: BLOOD SPECIMENOrdering Facility: [facility] Address: [address] [address] Performed By: #### 2 4323-8 ####[facility] LABCLIA [id number] [place] [address] Creatinine [Mass/Vol] 1.32 mg/dL High 0.73-1.22 [facility] Comment on above: Order Comment: Speci men Type: BLOOD SPECIMENOrdering Facility: [facility] Address: [address] [place] [address] Performed By: #### 2 4323-8 ####[facility] LABCLIA [id number] [place] [address] ESTIMATED GLOMERULAR FILTRATION RATE 54 mL/min/1.73m??? Low >=60 [facility] Comment on above: Order Comment: Davi avendaño Type: BLOOD SPECIMENOrdering Facility: [facility] Address: [address] [place] [id number] Result Comment: Faye mated Glomerular Filtration Rate [...] actual GFR. Performed By: #### 2 4323-8 ####[facility] LABCLIA [id number] [place] [address] Glucose [Mass/Vol] 156 mg/dL High 74-99 [facility] Comment on above: Order Comment: Davi avendaño Type: BLOOD SPECIMENOrdering Facility: [facility] Address: [address] [place] [id number] Result Comment: The [place] [employer] (ADA) provides guidance for cutoff [...] Standards of Medical Care in Diabetes 2016, [place] [employer]. Diabetes Care. 2016.39(Suppl 1). Performed By: #### 2 4323-8 ####[facility] LABCLIA [id number] [place] [address] Potassium [Moles/Vol] 4.1 mmol/L Normal 3.7-5.1 [facility] Comment on above: Order Comment: Davi avendaño Type: BLOOD SPECIMENOrdering Facility: [facility] Address: [address] [place] [address] Performed By: #### 2 4323-8 ####[facility] LABCLIA [id number] [place] [address] Protein [Mass/Vol] 6.7 g/dL Normal 6.3-8.0 [facility] Comment on above: Order Comment: Speci men Type: BLOOD SPECIMENOrdering Facility: [facility] Address: [address] [place] [address] Performed By: #### 2 4323-8 ####[facility] LABCLIA [id number] [place] [address] Sodium [Moles/Vol] 141 mmol/L Normal 136-144 [facility] Comment on above: Order Comment: Speci men Type: BLOOD SPECIMENOrdering Facility: [facility] Address: [address] [place] [address] Performed By: #### 2 4323-8 ####[facility] LABCLIA [id number] [place] [address] Urea nitrogen [Mass/Vol] 19 mg/dL Normal 9-24 [facility] Comment on above: Order Comment: Speci men Type: BLOOD SPECIMENOrdering Facility: [facility] Address: [address] [place] [address] Performed By: #### 2 4323-8 ####[facility] LABCLIA [id number] [place] [address] HEMOGLOBIN AND HEMATOCRITon 09-25-2022 Hematocrit (Bld) [Volume fraction] 21.2 % Critically low 42.0-54.0 [facility] Comment on above: Performed By: #### T ZEHRA, PRBC #### [facility] [address] [place], [place] [address] Dr. Benito To Hemoglobin (Bld) [Mass/Vol] 6.7 g/dL Critically low 14.0-18.0 [facility] Comment on above: Performed By: #### T NS, PRBC #### [facility] [address] [place], [place] [address] Dr. Benito To TYPE AND SCREENon 09-25-2022 TYPE AND SCREEN Negative Normal [facility] Comment on above: Performed By: #### P RBC, TNS #### [facility] [address] [place] [address] [address] Benito To CBC W Auto Differential pane l (Bld)on 09-18-2022 Anisocytosis Ql (Bld) Present Normal [facility] Comment on above: Order Comment: Speci men Type: BLOOD SPECIMENOrdering Facility: [facility] Address: [address] [place] [address] Performed By: #### 5 7021-8 ####[facility] LABCLIA [id number] [address] LABCLIA [id number] [place] [address] Basophils (Bld) [#/Vol] 0.09 10*3/uL Normal <0.11 [facility] Comment on above: Order Comment: Speci men Type: BLOOD SPECIMENOrdering Facility: [facility] Address: [address] [place] [address] Performed By: #### 5 7021-8 ####[facility] LABCLIA [id number] [address] LABCLIA [id number] [place] [address] Basophils/100 WBC (Bld) 4.0 % Normal [facility] Comment on above: Order Comment: Speci men Type: BLOOD SPECIMENOrdering Facility: [facility] Address: [address] [place] [address] Performed By: #### 5 7021-8 ####[facility] LABCLIA [id number] [address] LABCLIA [id number] [place] [address] Differential cell count method Nom (Bld) Manual Normal [facility] Comment on above: Order Comment: Speci men Type: BLOOD SPECIMENOrdering Facility: [facility] Address: [address] [place] [address] Performed By: #### 5 7021-8 ####[facility] LABCLIA [id number] [address] LABCLIA [id number] [place] [address] Eosinophils (Bld) [#/Vol] 0.00 10*3/uL Normal <0.46 [facility] Comment on above: Order Comment: Speci men Type: BLOOD SPECIMENOrdering Facility: [facility] Address: [address] [place] [address] Performed By: #### 5 7021-8 ####[facility] LABCLIA [id number] [address] LABCLIA [id number] [place] [address] Eosinophils/100 WBC (Bld) 0.0 % Normal [facility] Comment on above: Order Comment: Speci men Type: BLOOD SPECIMENOrdering Facility: [facility] Address: [address] [place], [place] [address] Performed By: #### 5 7021-8 ####[facility] LABCLIA [id number] [address] LABCLIA [id number] [place] [address] Erythrocyte distribution width (RBC) [Ratio] 17.1 % High 11.5-15.0 [facility] Comment on above: Order Comment: Speci men Type: BLOOD SPECIMENOrdering Facility: [facility] Address: [address] [place], [place] [address] Performed By: #### 5 7021-8 ####[facility] LABCLIA [id number] [address] LABCLIA [id number] [place] [address] Hematocrit (Bld) [Volume fraction] 25.3 % Low 39.0-51.0 [facility] Comment on above: Order Comment: Speci men Type: BLOOD SPECIMENOrdering Facility: [facility] Address: [address] [place] [address] Performed By: #### 5 7021-8 ####[facility] LABCLIA [id number] [address] LABCLIA [id number] [place] [address] Hemoglobin (Bld) [Mass/Vol] 8.0 g/dL Low 13.0-17.0 [facility] Comment on above: Order Comment: Speci men Type: BLOOD SPECIMENOrdering Facility: [facility] Address: [address] [place] [address] Performed By: #### 5 7021-8 ####[facility] LABCLIA [id number] [address] LABCLIA [id number] [place] [address] Lymphocytes (Bld) [#/Vol] 0.70 10*3/uL Low 1.00-4.00 [facility] Comment on above: Order Comment: Speci men Type: BLOOD SPECIMENOrdering Facility: [facility] Address: [address] [place] [address] Performed By: #### 5 7021-8 ####[facility] LABCLIA [id number] [address] LABCLIA [id number] [place] [address] Lymphocytes/100 WBC (Bld) 30.0 % Normal [facility] Comment on above: Order Comment: Speci men Type: BLOOD SPECIMENOrdering Facility: [facility] Address: [address] [place] [address] Performed By: #### 5 7021-8 ####[facility] LABCLIA [id number] [address] LABCLIA [id number] [place] [address] MCH (RBC) [Entitic mass] 31.9 pg Normal 26.0-34.0 [facility] Comment on above: Order Comment: Speci men Type: BLOOD SPECIMENOrdering Facility: [facility] Address: [address] [place] [address] Performed By: #### 5 7021-8 ####[facility] LABCLIA [id number] [address] LABCLIA [id number] [place] [address] MCHC (RBC) [Mass/Vol] 31.6 g/dL Normal 30.5-36.0 [facility] Comment on above: Order Comment: Speci men Type: BLOOD SPECIMENOrdering Facility: [facility] Address: [address] [place], [place] [address] Performed By: #### 5 7021-8 ####[facility] LABCLIA [id number] [address] LABIA [id number] [place] [address] MCV (RBC) [Entitic vol] 100.8 fL High 80.0-100.0 [facility] Comment on above: Order Comment: Speci men Type: BLOOD SPECIMENOrdering Facility: [facility] Address: [address] [place], [place] [address] Performed By: #### 5 7021-8 ####[facility] LABCLIA [id number] [address] LABCLIA [id number] [place] [address] Monocytes (Bld) [#/Vol] 0.21 10*3/uL Normal <0.87 [facility] Comment on above: Order Comment: Speci men Type: BLOOD SPECIMENOrdering Facility: [facility] Address: [address] [place] [address] Performed By: #### 5 7021-8 ####[facility] LABCLIA [id number] [address] LABCLIA [id number] [place] [address] Monocytes/100 WBC (Bld) 9.0 % Normal [facility] Comment on above: Order Comment: Speci men Type: BLOOD SPECIMENOrdering Facility: [facility] Address: [address] [place] [address] Performed By: #### 5 7021-8 ####[facility] LABCLIA [id number] [address] LABCLIA [id number] [place] [address] MYELO% 11.0 % Normal [facility] Comment on above: Order Comment: Speci men Type: BLOOD SPECIMENOrdering Facility: [facility] Address: [address] [place] [address] Performed By: #### 5 7021-8 ####[facility] LABCLIA [id number] [place] [id number] [facility] LABCLIA [id number] [place] [address] Neutrophils (Bld) [#/Vol] 1.10 10*3/uL Low 1.45-7.50 [facility] Comment on above: Order Comment: Speci men Type: BLOOD SPECIMENOrdering Facility: [facility] Address: [address] [place] [address] Performed By: #### 5 7021-8 ####[facility] LABCLIA [id number] [address] LABCLIA [id number] [place] [address] Neutrophils/100 WBC (Bld) 47.0 % Normal [facility] Comment on above: Order Comment: Speci men Type: BLOOD SPECIMENOrdering Facility: [facility] Address: [address] [place] [address] Performed By: #### 5 7021-8 ####[facility] LABCLIA [id number] [address] LABCLIA [id number] [place] [address] Nucleated RBC (Bld) [#/Vol] 10*3/uL Normal <0.01 [facility] Comment on above: Order Comment: Speci men Type: BLOOD SPECIMENOrdering Facility: [facility] Address: [address] [place] [address] Performed By: #### 5 7021-8 ####[facility] LABCLIA [id number] [address] LABCLIA [id number] [place] [address] Nucleated RBC/100 WBC (Bld) [Ratio] 0.0 /100 WBC Normal [facility] Comment on above: Order Comment: Speci men Type: BLOOD SPECIMENOrdering Facility: [facility] Address: [address] [place] [address] Performed By: #### 5 7021-8 ####[facility] LABCLIA [id number] [address] LABCLIA [id number] [place] [address] Ovalocytes LM Ql (Bld) Few Normal [facility] Comment on above: Order Comment: Speci men Type: BLOOD SPECIMENOrdering Facility: [facility] Address: [address] [place] [address] Performed By: #### 5 7021-8 ####[facility] LABCLIA [id number] [address] LABCLIA [id number] [place] [address] Platelet mean volume (Bld) [Entitic vol] Normal [facility] Comment on above: Order Comment: Speci men Type: BLOOD SPECIMENOrdering Facility: [facility] Address: [address] [place] [address] Result Comment: Unab le to Report. Performed By: #### 5 7021-8 ####[facility] LABCLIA [id number] [address] LABCLIA [id number] [place] [address] Platelets (Bld) [#/Vol] 65 10*3/uL Low 150-400 [facility] Comment on above: Order Comment: Speci men Type: BLOOD SPECIMENOrdering Facility: [facility] Address: [address] [place] [address] Result Comment: Resu lts checked and verified.No clot detected. Performed By: #### 5 7021-8 ####[facility] LABCLIA [id number] [address] LABCLIA [id number] [place] [address] Platelets Estimate (Bld) [#/Vol] Decreased Normal [facility] Comment on above: Order Comment: Speci men Type: BLOOD SPECIMENOrdering Facility: [facility] Address: [address] [place] [address] Performed By: #### 5 7021-8 ####[facility] LABCLIA [id number] [address] LABCLIA [id number] [place] [address] Polychromasia LM Ql (Bld) Slight Normal [facility] Comment on above: Order Comment: Speci men Type: BLOOD SPECIMENOrdering Facility: [facility] Address: [address] [place] [address] Performed By: #### 5 7021-8 ####[facility] LABCLIA [id number] [address] LABCLIA [id number] [place] [address] RBC (Bld) [#/Vol] 2.51 10*6/uL Low 4.20-6.00 [facility] Comment on above: Order Comment: Speci men Type: BLOOD SPECIMENOrdering Facility: [facility] Address: [address] [place] [address] Performed By: #### 5 7021-8 ####[facility] LABCLIA [id number] [address] LABCLIA [id number] [place] [address] RED CELL MORPH Reviewed: see result s of individual morphologies Normal [facility] Comment on above: Order Comment: Speci men Type: BLOOD SPECIMENOrdering Facility: [facility] Address: [address] [place], [place] [address] Performed By: #### 5 7021-8 ####[facility] LABCLIA [id number] [address] LABCLIA [id number] [place] [address] WBC (Bld) [#/Vol] 2.33 10*3/uL Low 3.70-11.00 [facility] Comment on above: Order Comment: Speci men Type: BLOOD SPECIMENOrdering Facility: [facility] Address: [address] [place] [address] Result Comment: Resu lts checked and verified.No clot detected. Performed By: #### 5 7021-8 ####[facility] LABCLIA [id number] [address] LABCLIA [id number] [place] [address] WBC Left Shift Ql (Bld) Present Normal [facility] Comment on above: Order Comment: Speci men Type: BLOOD SPECIMENOrdering Facility: [facility] Address: [address] [place] [address] Performed By: #### 5 7021-8 ####[facility] LABCLIA [id number] [address] LABCLIA [id number] [place] [address] CNOVSPon 09-18-2022 CNOVSP Normal [facility] Comprehensive metabolic 2000 panelon 09-18-2022 Albumin [Mass/Vol] 3.9 g/dL Normal 3.9-4.9 [facility] Comment on above: Order Comment: Speci men Type: BLOOD SPECIMENOrdering Facility: [facility] Address: [address] [place] [address] Performed By: #### 2 4323-8 ####[facility] LABCLIA [id number] [place] [address] ALP [Catalytic activity/Vol] 164 U/L High 38-113 [facility] Comment on above: Order Comment: Speci men Type: BLOOD SPECIMENOrdering Facility: [facility] Address: [address] [address] Performed By: #### 2 4323-8 ####[facility] LABCLIA [id number] [place] [address] ALT [Catalytic activity/Vol] 60 U/L High 10-54 [facility] Comment on above: Order Comment: Speci men Type: BLOOD SPECIMENOrdering Facility: [facility] Address: [address] [place] [address] Performed By: #### 2 4323-8 ####[facility] LABCLIA [id number] [place] [address] Anion gap [Moles/Vol] 11 mmol/L Normal 9-18 [facility] Comment on above: Order Comment: Speci men Type: BLOOD SPECIMENOrdering Facility: [facility] Address: [address] [place] [address] Performed By: #### 2 4323-8 ####[facility] LABCLIA [id number] [place] [address] AST [Catalytic activity/Vol] 36 U/L Normal 14-40 [facility] Comment on above: Order Comment: Speci men Type: BLOOD SPECIMENOrdering Facility: [facility] Address: [address] [place] [address] Performed By: #### 2 4323-8 ####[facility] LABCLIA [id number] [place] [address] Bilirubin [Mass/Vol] 1.2 mg/dL Normal 0.2-1.3 [facility] Comment on above: Order Comment: Speci men Type: BLOOD SPECIMENOrdering Facility: [facility] Address: [address] [place] [address] Performed By: #### 2 4323-8 ####[facility] LABCLIA [id number] [place] [address] Calcium [Mass/Vol] 9.0 mg/dL Normal 8.5-10.2 [facility] Comment on above: Order Comment: Speci men Type: BLOOD SPECIMENOrdering Facility: [facility] Address: [address] [place] [address] Performed By: #### 2 4323-8 ####[facility] LABCLIA [id number] [place] [address] Chloride [Moles/Vol] 100 mmol/L Normal 97-105 [facility] Comment on above: Order Comment: Speci men Type: BLOOD SPECIMENOrdering Facility: [facility] Address: [address] [place] [address] Performed By: #### 2 4323-8 ####[facility] LABCLIA [id number] [place] [address] CO2 [Moles/Vol] 33 mmol/L High 22-30 [facility] Comment on above: Order Comment: Speci men Type: BLOOD SPECIMENOrdering Facility: [facility] Address: [address] [address] Performed By: #### 2 4323-8 ####[facility] LABCLIA [id number] [place] [address] Creatinine [Mass/Vol] 1.40 mg/dL High 0.73-1.22 [facility] Comment on above: Order Comment: Speci men Type: BLOOD SPECIMENOrdering Facility: [facility] Address: [address] [place] [address] Performed By: #### 2 4323-8 ####[facility] LABCLIA [id number] [place] [address] ESTIMATED GLOMERULAR FILTRATION RATE 50 mL/min/1.73m??? Low >=60 [facility] Comment on above: Order Comment: Speci men Type: BLOOD SPECIMENOrdering Facility: [facility] Address: [address] [place] [address] Result Comment: Faye mated Glomerular Filtration Rate [...] actual GFR. Performed By: #### 2 4323-8 ####[facility] LABCLIA [id number] [place] [address] Glucose [Mass/Vol] 143 mg/dL High 74-99 [facility] Comment on above: Order Comment: Speci men Type: BLOOD SPECIMENOrdering Facility: [facility] Address: [address] [place], [place] [address] Result Comment: The [place] Diabetes [employer] (ADA) provides guidance for cutoff [...] Standards of Medical Care in Diabetes 2016, [place] [employer]. Diabetes Care. 2016.39(Suppl 1). Performed By: #### 2 4323-8 ####[facility] LABCLIA [id number] [place] [address] Potassium [Moles/Vol] 3.8 mmol/L Normal 3.7-5.1 [facility] Comment on above: Order Comment: Davi avendaño Type: BLOOD SPECIMENOrdering Facility: [facility] Address: [address] [place] [address] Performed By: #### 2 4323-8 ####[facility] LABCLIA [id number] [place] [address] Protein [Mass/Vol] 6.7 g/dL Normal 6.3-8.0 [facility] Comment on above: Order Comment: Speci men Type: BLOOD SPECIMENOrdering Facility: [facility] Address: [address] [place] [address] Performed By: #### 2 4323-8 ####[facility] LABCLIA [id number] [place] [address] Sodium [Moles/Vol] 144 mmol/L Normal 136-144 [facility] Comment on above: Order Comment: Speci men Type: BLOOD SPECIMENOrdering Facility: [facility] Address: [address] [place] [address] Performed By: #### 2 4323-8 ####[facility] LABCLIA [id number] [place] [address] Urea nitrogen [Mass/Vol] 21 mg/dL Normal 9-24 [facility] Comment on above: Order Comment: Speci men Type: BLOOD SPECIMENOrdering Facility: [facility] Address: [address] [place] [address] Performed By: #### 2 4323-8 ####[facility] LABCLIA [id number] [place] [address] CBC W Auto Differential pane l (Bld)on 09-11-2022 Anisocytosis Ql (Bld) Present Normal [facility] Comment on above: Order Comment: Speci men Type: BLOOD SPECIMENOrdering Facility: [facility] Address: [address] [place] [address] Performed By: #### 5 7021-8 ####[facility] LABCLIA [id number] [facility] [id number] LABCLIA [id number] [place] [address] Basophils (Bld) [#/Vol] 0.00 10*3/uL Normal <0.11 [facility] Comment on above: Order Comment: Speci men Type: BLOOD SPECIMENOrdering Facility: [facility] Address: [address] [place] [address] Performed By: #### 5 7021-8 ####[facility] LABCLIA [id number] [address] [id number] [facility] LABCLIA [id number] [place] [address] Basophils/100 WBC (Bld) 0.0 % Normal [facility] Comment on above: Order Comment: Speci men Type: BLOOD SPECIMENOrdering Facility: [facility] Address: [address] [place], [place] [address] Performed By: #### 5 7021-8 ####[facility] LABCLIA [id number] [address] LABCLIA [id number] [place] [address] BLAST% 1.0 % High <=0.0 [facility] Comment on above: Order Comment: Speci men Type: BLOOD SPECIMENOrdering Facility: [facility] Address: [address] [place], [place] [address] Performed By: #### 5 7021-8 ####[facility] LABCLIA [id number] [address] LABCLIA [id number] [place] [address] Differential cell count method Nom (Bld) Manual Normal [facility] Comment on above: Order Comment: Speci men Type: BLOOD SPECIMENOrdering Facility: [facility] Address: [address] [place] [address] Performed By: #### 5 7021-8 ####[facility] LABCLIA [id number] [address] [place] [id number] [facility] LABCLIA [id number] [place] [address] DYSPLASTIC PMNS Occasional Normal [facility] Comment on above: Order Comment: Speci men Type: BLOOD SPECIMENOrdering Facility: [facility] Address: [address] [place] [address] Performed By: #### 5 7021-8 ####[facility] LABCLIA [id number] [address] LABCLIA [id number] [place] [address] Eosinophils (Bld) [#/Vol] 0.00 10*3/uL Normal <0.46 [facility] Comment on above: Order Comment: Speci men Type: BLOOD SPECIMENOrdering Facility: [facility] Address: [address] [place] [address] Performed By: #### 5 7021-8 ####[facility] LABCLIA [id number] [address] LABCLIA [id number] [place] [address] Eosinophils/100 WBC (Bld) 0.0 % Normal [facility] Comment on above: Order Comment: Speci men Type: BLOOD SPECIMENOrdering Facility: [facility] Address: [address] [place] [address] Performed By: #### 5 7021-8 ####[facility] LABCLIA [id number] [address] LABCLIA [id number] [place] [address] Erythrocyte distribution width (RBC) [Ratio] 16.1 % High 11.5-15.0 [facility] Comment on above: Order Comment: Speci men Type: BLOOD SPECIMENOrdering Facility: [facility] Address: [address] [place] [address] Performed By: #### 5 7021-8 ####[facility] LABCLIA [id number] [address] LABCLIA [id number] [place] [address] Giant platelets LM Ql (Bld) Occasional Normal [facility] Comment on above: Order Comment: Speci men Type: BLOOD SPECIMENOrdering Facility: [facility] Address: [address] [place] [address] Performed By: #### 5 7021-8 ####[facility] LABCLIA [id number] [address] LABCLIA [id number] [place] [address] Hematocrit (Bld) [Volume fraction] 22.5 % Low 39.0-51.0 [facility] Comment on above: Order Comment: Speci men Type: BLOOD SPECIMENOrdering Facility: [facility] Address: [address] [place] [address] Performed By: #### 5 7021-8 ####[facility] LABCLIA [id number] [address] LABCLIA [id number] [place] [address] Hemoglobin (Bld) [Mass/Vol] 7.2 g/dL Low 13.0-17.0 [facility] Comment on above: Order Comment: Speci men Type: BLOOD SPECIMENOrdering Facility: [facility] Address: [address] [place] [address] Performed By: #### 5 7021-8 ####[facility] LABCLIA [id number] [address] LABCLIA [id number] [place] [address] Lymphocytes (Bld) [#/Vol] 0.97 10*3/uL Low 1.00-4.00 [facility] Comment on above: Order Comment: Speci men Type: BLOOD SPECIMENOrdering Facility: [facility] Address: [address] [place] [address] Performed By: #### 5 7021-8 ####[facility] LABCLIA [id number] [address] LABCLIA [id number] [place] [address] Lymphocytes/100 WBC (Bld) 43.0 % Normal [facility] Comment on above: Order Comment: Speci men Type: BLOOD SPECIMENOrdering Facility: [facility] Address: [address] [place] [address] Performed By: #### 5 7021-8 ####[facility] LABCLIA [id number] [address] LABCLIA [id number] [place] [address] MCH (RBC) [Entitic mass] 31.3 pg Normal 26.0-34.0 [facility] Comment on above: Order Comment: Speci men Type: BLOOD SPECIMENOrdering Facility: [facility] Address: [address] [place] [address] Performed By: #### 5 7021-8 ####[facility] LABCLIA [id number] [address] LABCLIA [id number] [place] [address] MCHC (RBC) [Mass/Vol] 32.0 g/dL Normal 30.5-36.0 [facility] Comment on above: Order Comment: Speci men Type: BLOOD SPECIMENOrdering Facility: [facility] Address: [address] [place] [address] Performed By: #### 5 7021-8 ####[facility] LABCLIA [id number] [address] LABCLIA [id number] [place] [address] MCV (RBC) [Entitic vol] 97.8 fL Normal 80.0-100.0 [facility] Comment on above: Order Comment: Speci men Type: BLOOD SPECIMENOrdering Facility: [facility] Address: [address] [place] [address] Performed By: #### 5 7021-8 ####[facility] LABCLIA [id number] [address] LABCLIA [id number] [place] [address] Metamyelocytes/100 WBC (Bld) 2.0 % Normal [facility] Comment on above: Order Comment: Speci men Type: BLOOD SPECIMENOrdering Facility: [facility] Address: [address] [place] [address] Performed By: #### 5 7021-8 ####[facility] LABCLIA [id number] [address] LABCLIA [id number] [place] [address] Monocytes (Bld) [#/Vol] 0.25 10*3/uL Normal <0.87 [facility] Comment on above: Order Comment: Speci men Type: BLOOD SPECIMENOrdering Facility: [facility] Address: [address] [place], [place] [address] Performed By: #### 5 7021-8 ####[facility] LABCLIA [id number] [address] LABCLIA [id number] [place] [address] Monocytes/100 WBC (Bld) 11.0 % Normal [facility] Comment on above: Order Comment: Speci men Type: BLOOD SPECIMENOrdering Facility: [facility] Address: [address] Performed By: #### 5 7021-8 ####[facility] LABCLIA [id number] [address] LABCLIA [id number] [place] [address] MYELO% 6.0 % Normal [facility] Comment on above: Order Comment: Speci men Type: BLOOD SPECIMENOrdering Facility: [facility] Address: [address] [place] [address] Performed By: #### 5 7021-8 ####[facility] LABCLIA [id number] [address] LABCLIA [id number] [place] [address] Neutrophils (Bld) [#/Vol] 0.83 10*3/uL Low 1.45-7.50 [facility] Comment on above: Order Comment: Speci men Type: BLOOD SPECIMENOrdering Facility: [facility] Address: [address] [place] [address] Performed By: #### 5 7021-8 ####[facility] LABCLIA [id number] [address] LABCLIA [id number] [place] [address] Neutrophils/100 WBC (Bld) 37.0 % Normal [facility] Comment on above: Order Comment: Speci men Type: BLOOD SPECIMENOrdering Facility: [facility] Address: [address] [place] [address] Performed By: #### 5 7021-8 ####[facility] LABCLIA [id number] [address] LABCLIA [id number] [place] [address] Nucleated RBC (Bld) [#/Vol] 0.02 10*3/uL High <0.01 [facility] Comment on above: Order Comment: Speci men Type: BLOOD SPECIMENOrdering Facility: [facility] Address: [address] [place] [address] Performed By: #### 5 7021-8 ####[facility] LABCLIA [id number] [place] [id number] [facility] LABCLIA [id number] [place] [address] Nucleated RBC/100 WBC (Bld) [Ratio] 1.0 /100 WBC Normal [facility] Comment on above: Order Comment: Speci men Type: BLOOD SPECIMENOrdering Facility: [facility] Address: [address] [place] [address] Performed By: #### 5 7021-8 ####[facility] LABCLIA [id number] [address] LABCLIA [id number] [place] [address] Ovalocytes LM Ql (Bld) Few Normal [facility] Comment on above: Order Comment: Speci men Type: BLOOD SPECIMENOrdering Facility: [facility] Address: [address] [place], [place] [address] Performed By: #### 5 7021-8 ####[facility] LABCLIA [id number] [address] LABCLIA [id number] [place] [address] Platelet mean volume (Bld) [Entitic vol] Normal [facility] Comment on above: Order Comment: Speci men Type: BLOOD SPECIMENOrdering Facility: [facility] Address: [address] [place] [address] Result Comment: Unab le to report Performed By: #### 5 7021-8 ####[facility] LABCLIA [id number] [address] LABCLIA [id number] [place] [address] Platelets (Bld) [#/Vol] 62 10*3/uL Low 150-400 [facility] Comment on above: Order Comment: Speci men Type: BLOOD SPECIMENOrdering Facility: [facility] Address: [address] [address] Performed By: #### 5 7021-8 ####[facility] LABCLIA [id number] [address] LABCLIA [id number] [place] [address] Platelets Estimate (Bld) [#/Vol] Decreased Normal [facility] Comment on above: Order Comment: Speci men Type: BLOOD SPECIMENOrdering Facility: [facility] Address: [address] [address] Performed By: #### 5 7021-8 ####[facility] LABCLIA [id number] [address] LABCLIA [id number] [place] [address] Polychromasia LM Ql (Bld) Slight Normal [facility] Comment on above: Order Comment: Speci men Type: BLOOD SPECIMENOrdering Facility: [facility] Address: [address] [place] [address] Performed By: #### 5 7021-8 ####[facility] LABCLIA [id number] [address] LABCLIA [id number] [place] [address] RBC (Bld) [#/Vol] 2.30 10*6/uL Low 4.20-6.00 [facility] Comment on above: Order Comment: Speci men Type: BLOOD SPECIMENOrdering Facility: [facility] Address: [address] [place] [address] Performed By: #### 5 7021-8 ####[facility] LABCLIA [id number] [address] LABCLIA [id number] [place] [address] RED CELL MORPH Reviewed: see result s of individual morphologies Normal [facility] Comment on above: Order Comment: Speci men Type: BLOOD SPECIMENOrdering Facility: [facility] Address: [address] [place] [address] Performed By: #### 5 7021-8 ####[facility] LABCLIA [id number] [address] LABCLIA [id number] [place] [address] WBC (Bld) [#/Vol] 2.25 10*3/uL Low 3.70-11.00 [facility] Comment on above: Order Comment: Speci men Type: BLOOD SPECIMENOrdering Facility: [facility] Address: [address] [place] [address] Result Comment: Resu lts checked and verified.No clot detected. Performed By: #### 5 7021-8 ####[facility] LABCLIA [id number] [address] LABCLIA [id number] [place] [address] WBC Left Shift Ql (Bld) Present Normal [facility] Comment on above: Order Comment: Speci men Type: BLOOD SPECIMENOrdering Facility: [facility] Address: [address] [place] [address] Performed By: #### 5 7021-8 ####[facility] LABCLIA [id number] [facility] [id number] [id number] [facility] LABCLIA [id number] [place] [address] CNPNon 09-11-2022 CNPN Normal [facility] Comprehensive metabolic 2000 panelon 09-11-2022 Albumin [Mass/Vol] 3.9 g/dL Normal 3.9-4.9 [facility] Comment on above: Order Comment: Speci men Type: BLOOD SPECIMENOrdering Facility: [facility] Address: [address] [address] Performed By: #### 2 4323-8 ####[facility] LABCLIA [id number] [place] [address] ALP [Catalytic activity/Vol] 148 U/L High 38-113 [facility] Comment on above: Order Comment: Speci men Type: BLOOD SPECIMENOrdering Facility: [facility] Address: [address] [address] Performed By: #### 2 4323-8 ####[facility] LABCLIA [id number] [place] [address] ALT [Catalytic activity/Vol] 48 U/L Normal 10-54 [facility] Comment on above: Order Comment: Speci men Type: BLOOD SPECIMENOrdering Facility: [facility] Address: [address] [address] Performed By: #### 2 4323-8 ####[facility] LABCLIA [id number] [place] [address] Anion gap [Moles/Vol] 11 mmol/L Normal 9-18 [facility] Comment on above: Order Comment: Speci men Type: BLOOD SPECIMENOrdering Facility: [facility] Address: [address] [address] Performed By: #### 2 4323-8 ####[facility] LABCLIA [id number] [place] [address] AST [Catalytic activity/Vol] 28 U/L Normal 14-40 [facility] Comment on above: Order Comment: Speci men Type: BLOOD SPECIMENOrdering Facility: [facility] Address: [address] [place] [address] Performed By: #### 2 4323-8 ####[facility] LABCLIA [id number] [place] [address] Bilirubin [Mass/Vol] 1.2 mg/dL Normal 0.2-1.3 [facility] Comment on above: Order Comment: Speci men Type: BLOOD SPECIMENOrdering Facility: [facility] Address: [address] [place] [address] Performed By: #### 2 4323-8 ####[facility] LABCLIA [id number] [place] [address] Calcium [Mass/Vol] 9.3 mg/dL Normal 8.5-10.2 [facility] Comment on above: Order Comment: Speci men Type: BLOOD SPECIMENOrdering Facility: [facility] Address: [address] [place] [address] Performed By: #### 2 4323-8 ####[facility] LABCLIA [id number] [place] [address] Chloride [Moles/Vol] 97 mmol/L Normal 97-105 [facility] Comment on above: Order Comment: Speci men Type: BLOOD SPECIMENOrdering Facility: [facility] Address: [address] [place] [address] Performed By: #### 2 4323-8 ####[facility] LABCLIA [id number] [place] [address] CO2 [Moles/Vol] 32 mmol/L High 22-30 [facility] Comment on above: Order Comment: Speci men Type: BLOOD SPECIMENOrdering Facility: [facility] Address: [address] [place] [address] Performed By: #### 2 4323-8 ####[facility] LABCLIA [id number] [place] [address] Creatinine [Mass/Vol] 1.34 mg/dL High 0.73-1.22 [facility] Comment on above: Order Comment: Speci men Type: BLOOD SPECIMENOrdering Facility: [facility] Address: [address] [address] Performed By: #### 2 4323-8 ####[facility] LABCLIA [id number] [place] [address] ESTIMATED GLOMERULAR FILTRATION RATE 53 mL/min/1.73m??? Low >=60 [facility] Comment on above: Order Comment: Speci men Type: BLOOD SPECIMENOrdering Facility: [facility] Address: [address] [place] [address] Result Comment: Faye mated Glomerular Filtration Rate [...] actual GFR. Performed By: #### 2 4323-8 ####[facility] LABCLIA [id number] [place] [address] Glucose [Mass/Vol] 205 mg/dL High 74-99 [facility] Comment on above: Order Comment: Speci men Type: BLOOD SPECIMENOrdering Facility: [facility] Address: [address] [place] [address] Result Comment: The [place] Diabetes Association (ADA) provides guidance for cutoff [...] Standards of Medical Care in Diabetes 2016, [place] [employer]. Diabetes Care. 2016.39(Suppl 1). Performed By: #### 2 4323-8 ####[facility] LABCLIA [id number] [place] [address] Potassium [Moles/Vol] 3.5 mmol/L Low 3.7-5.1 [facility] Comment on above: Order Comment: Speci men Type: BLOOD SPECIMENOrdering Facility: [facility] Address: [address] [address] Performed By: #### 2 4323-8 ####[facility] LABCLIA [id number] [place] [address] Protein [Mass/Vol] 6.3 g/dL Normal 6.3-8.0 [facility] Comment on above: Order Comment: Speci men Type: BLOOD SPECIMENOrdering Facility: [facility] Address: [address] [address] Performed By: #### 2 4323-8 ####[facility] LABCLIA [id number] [place] [address] Sodium [Moles/Vol] 140 mmol/L Normal 136-144 [facility] Comment on above: Order Comment: Speci men Type: BLOOD SPECIMENOrdering Facility: [facility] Address: [address] [address] Performed By: #### 2 4323-8 ####[facility] LABCLIA [id number] [place] [address] Urea nitrogen [Mass/Vol] 25 mg/dL High 9-24 [facility] Comment on above: Order Comment: Speci men Type: BLOOD SPECIMENOrdering Facility: [facility] Address: [address] [address] Performed By: #### 2 4323-8 ####[facility] LABCLIA [id number] [place] [address] HEMOGRAM AND PLATELon 2022 Hematocrit (Bld) [Volume fraction] 22.3 % Critically low 42.0-54.0 [facility] Comment on above: Performed By: #### H H #### [facility] [address] [place] [address] Dr. Benito To Hemoglobin (Bld) [Mass/Vol] 7.3 g/dL Critically low 14.0-18.0 [facility] Comment on above: Performed By: #### H H #### [facility] [address] [place] [address] Dr. Benito To MCH (RBC) [Entitic mass] 32.0 pg Normal 25.9-34.0 [facility] Comment on above: Performed By: #### H H #### [facility] [address] [place] [address] Dr. Benito To MCHC (RBC) [Mass/Vol] 32.7 g/dL Normal 29.9-35.2 [facility] Comment on above: Performed By: #### H H #### [facility] [address] [place] [address] Dr. Benito To MCV (RBC) [Entitic vol] 97.8 fL Critically high 80.0-94.0 [facility] Comment on above: Performed By: #### H H #### [facility] [address] [place] [address] Dr. Benito To PLT 49 103/ul Critically low 150-450 [facility] Comment on above: Performed By: #### H H #### [facility] [address] [place] [address] Dr. Benito To RBC 2.28 106/ul Critically low 4.70-6.10 [facility] Comment on above: Performed By: #### H H #### [facility] [address] [place] [address] Dr. Benito To WBC 2.4 103/ul Critically low 4.0-11.0 [facility] Comment on above: Performed By: #### H H #### [facility] [address] [place] [address] Dr. Benito To TYPE AND SCREENon 09-11-2022 TYPE AND SCREEN Negative Normal [facility] Comment on above: Performed By: #### P RBC, TNS #### [facility] [address] [place] [address] Dr. Benito To HEMOGLOBIN AND HEMATOCRITon 09-05-2022 Hematocrit (Bld) [Volume fraction] 20.7 % Critically low 42.0-54.0 [facility] Comment on above: Performed By: #### T NS, PRBC #### [facility] [address] [place] [address] Dr. Benito To Hemoglobin (Bld) [Mass/Vol] 6.8 g/dL Critically low 14.0-18.0 [facility] Comment on above: Performed By: #### T NS, PRBC #### [facility] [address] [place] [address] Dr. Benito To TYPE AND SCREENon 09-05-2022 TYPE AND SCREEN Negative Normal [facility] Comment on above: Performed By: #### T NS, PRBC #### [facility] [address] [place] [address] Dr. Benito To CBC W Auto Differential pane l (Bld)on 09-04-2022 Anisocytosis Ql (Bld) Present Normal [facility] Comment on above: Order Comment: Speci men Type: BLOOD SPECIMENOrdering Facility: [facility] Address: [address] [place] [address] Performed By: #### 5 7021-8 ####[facility] LABCLIA [id number] [id number] [place] [address] LABCLIA [id number] [place] [address] Basophils (Bld) [#/Vol] 0.09 10*3/uL Normal <0.11 [facility] Comment on above: Order Comment: Speci men Type: BLOOD SPECIMENOrdering Facility: [facility] Address: [address] [place] [address] Performed By: #### 5 7021-8 ####[facility] LABCLIA [id number] [address] LABCLIA [id number] [place] [address] Basophils/100 WBC (Bld) 3.0 % Normal [facility] Comment on above: Order Comment: Speci men Type: BLOOD SPECIMENOrdering Facility: [facility] Address: [address] [place] [address] Performed By: #### 5 7021-8 ####[facility] LABCLIA [id number] [address] LABCLIA [id number] [place] [address] Eosinophils (Bld) [#/Vol] 0.03 10*3/uL Normal <0.46 [facility] Comment on above: Order Comment: Speci men Type: BLOOD SPECIMENOrdering Facility: [facility] Address: [address] [place] [address] Performed By: #### 5 7021-8 ####[facility] LABCLIA [id number] [address] LABCLIA [id number] [place] [address] Eosinophils/100 WBC (Bld) 1.0 % Normal [facility] Comment on above: Order Comment: Speci men Type: BLOOD SPECIMENOrdering Facility: [facility] Address: [address] [place], [place] [address] Performed By: #### 5 7021-8 ####[facility] LABCLIA [id number] [address] [facility] LABCLIA [id number] [place] [address] Erythrocyte distribution width (RBC) [Ratio] 15.7 % High 11.5-15.0 [facility] Comment on above: Order Comment: Speci men Type: BLOOD SPECIMENOrdering Facility: [facility] Address: [address] [place] [address] Performed By: #### 5 7021-8 ####[facility] LABCLIA [id number] [address] LABCLIA [id number] [place] [address] Hematocrit (Bld) [Volume fraction] 21.8 % Low 39.0-51.0 [facility] Comment on above: Order Comment: Speci men Type: BLOOD SPECIMENOrdering Facility: [facility] Address: [address] [place] [address] Performed By: #### 5 7021-8 ####[facility] LABCLIA [id number] [address] LABCLIA [id number] [place] [address] Hemoglobin (Bld) [Mass/Vol] 6.9 g/dL Low 13.0-17.0 [facility] Comment on above: Order Comment: Speci men Type: BLOOD SPECIMENOrdering Facility: [facility] Address: [address] [place], [place] [address] Performed By: #### 5 7021-8 ####[facility] LABCLIA [id number] [address] LABCLIA [id number] [place] [address] Lymphocytes (Bld) [#/Vol] 1.08 10*3/uL Normal 1.00-4.00 [facility] Comment on above: Order Comment: Speci men Type: BLOOD SPECIMENOrdering Facility: [facility] Address: [address] [place] [address] Performed By: #### 5 7021-8 ####[facility] LABCLIA [id number] [address] LABCLIA [id number] [place] [address] Lymphocytes/100 WBC (Bld) 37.0 % Normal [facility] Comment on above: Order Comment: Speci men Type: BLOOD SPECIMENOrdering Facility: [facility] Address: [address] [place] [address] Performed By: #### 5 7021-8 ####[facility] LABCLIA [id number] [address] LABCLIA [id number] [place] [address] MCH (RBC) [Entitic mass] 30.5 pg Normal 26.0-34.0 [facility] Comment on above: Order Comment: Speci men Type: BLOOD SPECIMENOrdering Facility: [facility] Address: [address] [place] [address] Performed By: #### 5 7021-8 ####[facility] LABCLIA [id number] [address] LABCLIA [id number] [place] [address] MCHC (RBC) [Mass/Vol] 31.7 g/dL Normal 30.5-36.0 [facility] Comment on above: Order Comment: Speci men Type: BLOOD SPECIMENOrdering Facility: [facility] Address: [address] [place], [place] [address] Performed By: #### 5 7021-8 ####[facility] LABCLIA [id number] [place] [facility] [id number] [place] [address] LABCLIA [id number] [place] [address] MCV (RBC) [Entitic vol] 96.5 fL Normal 80.0-100.0 [facility] Comment on above: Order Comment: Speci men Type: BLOOD SPECIMENOrdering Facility: [facility] Address: [address] [place] [address] Performed By: #### 5 7021-8 ####[facility] LABCLIA [id number] [address] LABCLIA [id number] [place] [address] Metamyelocytes/100 WBC (Bld) 4.0 % Normal [facility] Comment on above: Order Comment: Speci men Type: BLOOD SPECIMENOrdering Facility: [facility] Address: [address] [place] [address] Performed By: #### 5 7021-8 ####[facility] LABCLIA [id number] [address] LABCLIA [id number] [place] [address] Monocytes (Bld) [#/Vol] 0.44 10*3/uL Normal <0.87 [facility] Comment on above: Order Comment: Speci men Type: BLOOD SPECIMENOrdering Facility: [facility] Address: [address] [place], [place] [address] Performed By: #### 5 7021-8 ####[facility] LABCLIA [id number] [address] LABCLIA [id number] [place] [address] Monocytes/100 WBC (Bld) 15.0 % Normal [facility] Comment on above: Order Comment: Speci men Type: BLOOD SPECIMENOrdering Facility: [facility] Address: [address] [place] [address] Performed By: #### 5 7021-8 ####[facility] LABCLIA [id number] [address] LABCLIA [id number] [place] [address] Neutrophils (Bld) [#/Vol] 1.17 10*3/uL Low 1.45-7.50 [facility] Comment on above: Order Comment: Speci men Type: BLOOD SPECIMENOrdering Facility: [facility] Address: [address] [place], [place] [address] Performed By: #### 5 7021-8 ####[facility] LABCLIA [id number] [address] LABCLIA [id number] [place] [address] Neutrophils/100 WBC (Bld) 40.0 % Normal [facility] Comment on above: Order Comment: Speci men Type: BLOOD SPECIMENOrdering Facility: [facility] Address: [address] [place], [place] [address] Performed By: #### 5 7021-8 ####[facility] LABCLIA [id number] [address] LABCLIA [id number] [place] [address] Nucleated RBC (Bld) [#/Vol] 0.06 10*3/uL High <0.01 [facility] Comment on above: Order Comment: Speci men Type: BLOOD SPECIMENOrdering Facility: [facility] Address: [address] [place], [place] [address] Performed By: #### 5 7021-8 ####[facility] LABCLIA [id number] [address] LABCLIA [id number] [place] [address] Nucleated RBC/100 WBC (Bld) [Ratio] 2.0 /100 WBC Normal [facility] Comment on above: Order Comment: Speci men Type: BLOOD SPECIMENOrdering Facility: [facility] Address: [address] [place] [address] Performed By: #### 5 7021-8 ####[facility] LABCLIA [id number] [address] LABCLIA [id number] [place] [address] Ovalocytes LM Ql (Bld) Few Normal [facility] Comment on above: Order Comment: Speci men Type: BLOOD SPECIMENOrdering Facility: [facility] Address: [address] [place] [address] Performed By: #### 5 7021-8 ####[facility] LABCLIA [id number] [address] LABCLIA [id number] [place] [address] Platelet mean volume (Bld) [Entitic vol] Normal [facility] Comment on above: Order Comment: Speci men Type: BLOOD SPECIMENOrdering Facility: [facility] Address: [address] [place] [address] Result Comment: Unab le to report Performed By: #### 5 7021-8 ####[facility] LABCLIA [id number] [address] LABCLIA [id number] [place] [address] Platelets (Bld) [#/Vol] 55 10*3/uL Low 150-400 [facility] Comment on above: Order Comment: Speci men Type: BLOOD SPECIMENOrdering Facility: [facility] Address: [address] [place], [place] [address] Performed By: #### 5 7021-8 ####[facility] LABCLIA [id number] [address] LABCLIA [id number] [place] [address] Platelets Estimate (Bld) [#/Vol] Decreased Normal [facility] Comment on above: Order Comment: Speci men Type: BLOOD SPECIMENOrdering Facility: [facility] Address: [address] Performed By: #### 5 7021-8 ####[facility] LABCLIA [id number] [address] LABCLIA [id number] [place] [address] Polychromasia LM Ql (Bld) Slight Normal [facility] Comment on above: Order Comment: Speci men Type: BLOOD SPECIMENOrdering Facility: [facility] Address: [address] Performed By: #### 5 7021-8 ####[facility] LABCLIA [id number] [address] LABCLIA [id number] [place] [address] RBC (Bld) [#/Vol] 2.26 10*6/uL Low 4.20-6.00 [facility] Comment on above: Order Comment: Speci men Type: BLOOD SPECIMENOrdering Facility: [facility] Address: [address] [place] [address] Performed By: #### 5 7021-8 ####[facility] LABCLIA [id number] [address] LABCLIA [id number] [place] [address] RED CELL MORPH Reviewed: see result s of individual morphologies Normal [facility] Comment on above: Order Comment: Speci men Type: BLOOD SPECIMENOrdering Facility: [facility] Address: [address] [place] [address] Performed By: #### 5 7021-8 ####[facility] LABCLIA [id number] [address] LABCLIA [id number] [place] [address] WBC (Bld) [#/Vol] 2.93 10*3/uL Low 3.70-11.00 [facility] Comment on above: Order Comment: Speci men Type: BLOOD SPECIMENOrdering Facility: [facility] Address: [address] [place] [address] Result Comment: Chec ked and Verified No clot detected. Performed By: #### 5 7021-8 ####[facility] LABCLIA [id number] [address] LABCLIA [id number] [place] [address] WBC Left Shift Ql (Bld) Present Normal [facility] Comment on above: Order Comment: Speci men Type: BLOOD SPECIMENOrdering Facility: [facility] Address: [address] [place] [address] Performed By: #### 5 7021-8 ####[facility] LABCLIA [id number] [address] LABCLIA [id number] [place] [address] CNPNon 09-04-2022 CNPN Normal [facility] Comprehensive metabolic 2000 panelon 09-04-2022 Albumin [Mass/Vol] 3.9 g/dL Normal 3.9-4.9 [facility] Comment on above: Order Comment: Speci men Type: BLOOD SPECIMENOrdering Facility: [facility] Address: [address] [address] Performed By: #### 2 4323-8 ####[facility] LABCLIA [id number] [place] [address] ALP [Catalytic activity/Vol] 157 U/L High 38-113 [facility] Comment on above: Order Comment: Speci men Type: BLOOD SPECIMENOrdering Facility: [facility] Address: [address] [address] Performed By: #### 2 4323-8 ####[facility] LABCLIA [id number] [place] [address] ALT [Catalytic activity/Vol] 53 U/L Normal 10-54 [facility] Comment on above: Order Comment: Speci men Type: BLOOD SPECIMENOrdering Facility: [facility] Address: [address] [place] [address] Performed By: #### 2 4323-8 ####[facility] LABCLIA [id number] [place] [address] Anion gap [Moles/Vol] 11 mmol/L Normal 9-18 [facility] Comment on above: Order Comment: Speci men Type: BLOOD SPECIMENOrdering Facility: [facility] Address: [address] [place] [address] Performed By: #### 2 4323-8 ####[facility] LABCLIA [id number] [place] [address] AST [Catalytic activity/Vol] 29 U/L Normal 14-40 [facility] Comment on above: Order Comment: Speci men Type: BLOOD SPECIMENOrdering Facility: [facility] Address: [address] [place] [address] Performed By: #### 2 4323-8 ####[facility] LABCLIA [id number] [place] [address] Bilirubin [Mass/Vol] 1.2 mg/dL Normal 0.2-1.3 [facility] Comment on above: Order Comment: Speci men Type: BLOOD SPECIMENOrdering Facility: [facility] Address: [address] [place] [address] Performed By: #### 2 4323-8 ####[facility] LABCLIA [id number] [place] [address] Calcium [Mass/Vol] 9.4 mg/dL Normal 8.5-10.2 [facility] Comment on above: Order Comment: Speci men Type: BLOOD SPECIMENOrdering Facility: [facility] Address: [address] [place] [address] Performed By: #### 2 4323-8 ####[facility] LABCLIA [id number] [place] [address] Chloride [Moles/Vol] 97 mmol/L Normal 97-105 [facility] Comment on above: Order Comment: Speci men Type: BLOOD SPECIMENOrdering Facility: [facility] Address: [address] [address] Performed By: #### 2 4323-8 ####[facility] LABCLIA [id number] [place] [address] CO2 [Moles/Vol] 33 mmol/L High 22-30 [facility] Comment on above: Order Comment: Speci men Type: BLOOD SPECIMENOrdering Facility: [facility] Address: [address] [place] [address] Performed By: #### 2 4323-8 ####[facility] LABCLIA [id number] [place] [address] Creatinine [Mass/Vol] 1.40 mg/dL High 0.73-1.22 [facility] Comment on above: Order Comment: Speci men Type: BLOOD SPECIMENOrdering Facility: [facility] Address: [address] [place] [address] Performed By: #### 2 4323-8 ####[facility] LABCLIA [id number] [place] [address] ESTIMATED GLOMERULAR FILTRATION RATE 50 mL/min/1.73m??? Low >=60 [facility] Comment on above: Order Comment: Davi avendaño Type: BLOOD SPECIMENOrdering Facility: [facility] Address: [address] [place] [address] Result Comment: Faye mated Glomerular Filtration Rate [...] actual GFR. Performed By: #### 2 4323-8 ####[facility] LABCLIA [id number] [place] [address] Glucose [Mass/Vol] 152 mg/dL High 74-99 [facility] Comment on above: Order Comment: Davi avendaño Type: BLOOD SPECIMENOrdering Facility: [facility] Address: [address] [place] [address] Result Comment: The [place] [employer] (ADA) provides guidance for cutoff [...] Standards of Medical Care in Diabetes 2016, [place] [employer]. Diabetes Care. 2016.39(Suppl 1). Performed By: #### 2 4323-8 ####[facility] LABCLIA [id number] [place] [address] Potassium [Moles/Vol] 3.7 mmol/L Normal 3.7-5.1 [facility] Comment on above: Order Comment: Speci men Type: BLOOD SPECIMENOrdering Facility: [facility] Address: [address] [address] Performed By: #### 2 4323-8 ####[facility] LABCLIA [id number] [place] [address] Protein [Mass/Vol] 6.5 g/dL Normal 6.3-8.0 [facility] Comment on above: Order Comment: Speci men Type: BLOOD SPECIMENOrdering Facility: [facility] Address: [address] [address] Performed By: #### 2 4323-8 ####[facility] LABCLIA [id number] [place] [address] Sodium [Moles/Vol] 141 mmol/L Normal 136-144 [facility] Comment on above: Order Comment: Speci men Type: BLOOD SPECIMENOrdering Facility: [facility] Address: [address] [address] Performed By: #### 2 4323-8 ####[facility] LABCLIA [id number] [place] [address] Urea nitrogen [Mass/Vol] 22 mg/dL Normal 9-24 [facility] Comment on above: Order Comment: Speci men Type: BLOOD SPECIMENOrdering Facility: [facility] Address: [address] [address] Performed By: #### 2 4323-8 ####[facility] LABCLIA [id number] [place] [address] CBC W Auto Differential pane l (Bld)on 08-28-2022 Basophils (Bld) [#/Vol] 10*3/uL Normal <0.11 [facility] Comment on above: Order Comment: Speci men Type: BLOOD SPECIMENOrdering Facility: [facility] Address: [address] [place] [address] Performed By: #### 5 7021-8 ####[facility] LABCLIA [id number] [place] [address] Basophils/100 WBC (Bld) 1.0 % Normal [facility] Comment on above: Order Comment: Speci men Type: BLOOD SPECIMENOrdering Facility: [facility] Address: [address] [address] Performed By: #### 5 7021-8 ####[facility] LABCLIA [id number] [place] [address] Differential cell count method Nom (Bld) Auto Normal [facility] Comment on above: Order Comment: Speci men Type: BLOOD SPECIMENOrdering Facility: [facility] Address: [address] [place] [address] Performed By: #### 5 7021-8 ####[facility] LABCLIA [id number] [place] [address] Eosinophils (Bld) [#/Vol] 10*3/uL Normal <0.46 [facility] Comment on above: Order Comment: Speci men Type: BLOOD SPECIMENOrdering Facility: [facility] Address: [address] [place] [address] Performed By: #### 5 7021-8 ####[facility] LABCLIA [id number] [place] [address] Eosinophils/100 WBC (Bld) 0.5 % Normal [facility] Comment on above: Order Comment: Speci men Type: BLOOD SPECIMENOrdering Facility: [facility] Address: [address] [place] [address] Performed By: #### 5 7021-8 ####[facility] LABCLIA [id number] [place] [address] Erythrocyte distribution width (RBC) [Ratio] 15.9 % High 11.5-15.0 [facility] Comment on above: Order Comment: Speci men Type: BLOOD SPECIMENOrdering Facility: [facility] Address: [address] [place] [address] Performed By: #### 5 7021-8 ####[facility] LABCLIA [id number] [place] [address] Hematocrit (Bld) [Volume fraction] 25.6 % Low 39.0-51.0 [facility] Comment on above: Order Comment: Speci men Type: BLOOD SPECIMENOrdering Facility: [facility] Address: [address] [place] [address] Performed By: #### 5 7021-8 ####[facility] LABCLIA [id number] [place] [address] Hemoglobin (Bld) [Mass/Vol] 8.1 g/dL Low 13.0-17.0 [facility] Comment on above: Order Comment: Speci men Type: BLOOD SPECIMENOrdering Facility: [facility] Address: [address] [place] [address] Performed By: #### 5 7021-8 ####[facility] LABCLIA [id number] [place] [address] Immature granulocytes (Bld) [#/Vol] 0.03 10*3/uL Normal <0.10 [facility] Comment on above: Order Comment: Speci men Type: BLOOD SPECIMENOrdering Facility: [facility] Address: [address] [place] [address] Performed By: #### 5 7021-8 ####[facility] LABCLIA [id number] [place] [address] Immature granulocytes/100 WBC (Bld) 1.5 % Normal [facility] Comment on above: Order Comment: Speci men Type: BLOOD SPECIMENOrdering Facility: [facility] Address: [address] [place] [address] Performed By: #### 5 7021-8 ####[facility] LABCLIA [id number] [place] [address] Lymphocytes (Bld) [#/Vol] 0.59 10*3/uL Low 1.00-4.00 [facility] Comment on above: Order Comment: Speci men Type: BLOOD SPECIMENOrdering Facility: [facility] Address: [address] [place] [address] Performed By: #### 5 7021-8 ####[facility] LABCLIA [id number] [place] [address] Lymphocytes/100 WBC (Bld) 28.8 % Normal [facility] Comment on above: Order Comment: Speci men Type: BLOOD SPECIMENOrdering Facility: [facility] Address: [address] [place] [address] Performed By: #### 5 7021-8 ####[facility] LABCLIA [id number] [place] [address] MCH (RBC) [Entitic mass] 30.2 pg Normal 26.0-34.0 [facility] Comment on above: Order Comment: Speci men Type: BLOOD SPECIMENOrdering Facility: [facility] Address: [address] [place] [address] Performed By: #### 5 7021-8 ####[facility] LABCLIA [id number] [place] [address] MCHC (RBC) [Mass/Vol] 31.6 g/dL Normal 30.5-36.0 [facility] Comment on above: Order Comment: Speci men Type: BLOOD SPECIMENOrdering Facility: [facility] Address: [address] [address] Performed By: #### 5 7021-8 ####[facility] LABCLIA [id number] [place] [address] MCV (RBC) [Entitic vol] 95.5 fL Normal 80.0-100.0 [facility] Comment on above: Order Comment: Speci men Type: BLOOD SPECIMENOrdering Facility: [facility] Address: [address] [place] [address] Performed By: #### 5 7021-8 ####[facility] LABCLIA [id number] [place] [address] Monocytes (Bld) [#/Vol] 0.26 10*3/uL Normal <0.87 [facility] Comment on above: Order Comment: Speci men Type: BLOOD SPECIMENOrdering Facility: [facility] Address: [address] [place] [address] Performed By: #### 5 7021-8 ####[facility] LABCLIA [id number] [place] [address] Monocytes/100 WBC (Bld) 12.7 % Normal [facility] Comment on above: Order Comment: Speci men Type: BLOOD SPECIMENOrdering Facility: [facility] Address: [address] [place] [address] Performed By: #### 5 7021-8 ####[facility] LABCLIA [id number] [place] [address] Neutrophils (Bld) [#/Vol] 1.14 10*3/uL Low 1.45-7.50 [facility] Comment on above: Order Comment: Speci men Type: BLOOD SPECIMENOrdering Facility: [facility] Address: [address] [place] [address] Performed By: #### 5 7021-8 ####[facility] LABCLIA [id number] [place] [address] Neutrophils/100 WBC (Bld) 55.5 % Normal [facility] Comment on above: Order Comment: Speci men Type: BLOOD SPECIMENOrdering Facility: [facility] Address: [address] [place] [address] Performed By: #### 5 7021-8 ####[facility] LABCLIA [id number] [place] [address] Nucleated RBC (Bld) [#/Vol] 10*3/uL Normal <0.01 [facility] Comment on above: Order Comment: Speci men Type: BLOOD SPECIMENOrdering Facility: [facility] Address: [address] [place] [address] Performed By: #### 5 7021-8 ####[facility] LABCLIA [id number] [place] [address] Nucleated RBC/100 WBC (Bld) [Ratio] 0.0 /100 WBC Normal [facility] Comment on above: Order Comment: Speci men Type: BLOOD SPECIMENOrdering Facility: [facility] Address: [address] [place] [address] Performed By: #### 5 7021-8 ####[facility] LABIA [id number] [place] [address] Platelet mean volume (Bld) [Entitic vol] 14.7 fL High 9.0-12.7 [facility] Comment on above: Order Comment: Speci men Type: BLOOD SPECIMENOrdering Facility: [facility] Address: [address] [place] [address] Performed By: #### 5 7021-8 ####[facility] LABIA [id number] [place] [address] Platelets (Bld) [#/Vol] 43 10*3/uL Low 150-400 [facility] Comment on above: Order Comment: Speci men Type: BLOOD SPECIMENOrdering Facility: [facility] Address: [address] [place] [address] Result Comment: Resu lts checked and verified.No clot detected. Performed By: #### 5 7021-8 ####[facility] LABIA [id number] [place] [address] RBC (Bld) [#/Vol] 2.68 10*6/uL Low 4.20-6.00 [facility] Comment on above: Order Comment: Speci men Type: BLOOD SPECIMENOrdering Facility: [facility] Address: [address] [place] [address] Performed By: #### 5 7021-8 ####[facility] LABCLIA [id number] [place] [address] WBC (Bld) [#/Vol] 2.05 10*3/uL Low 3.70-11.00 [facility] Comment on above: Order Comment: Speci men Type: BLOOD SPECIMENOrdering Facility: [facility] Address: [address] [place] [address] Performed By: #### 5 7021-8 ####[facility] LABCLIA [id number] [place] [address] CNOVSPon 08-28-2022 CNOVSP Normal [facility] metabolic 2000 panelon 08-28-2022 Albumin [Mass/Vol] 3.8 g/dL Low 3.9-4.9 [facility] Comment on above: Order Comment: Speci men Type: BLOOD SPECIMENOrdering Facility: [facility] Address: [address] [address] Performed By: #### 2 4323-8 ####[facility] LABCLIA [id number] [place] [address] ALP [Catalytic activity/Vol] 158 U/L High 38-113 [facility] Comment on above: Order Comment: Speci men Type: BLOOD SPECIMENOrdering Facility: [facility] Address: [address] [place] [address] Performed By: #### 2 4323-8 ####[facility] LABCLIA [id number] [place] [address] ALT [Catalytic activity/Vol] 53 U/L Normal 10-54 [facility] Comment on above: Order Comment: Speci men Type: BLOOD SPECIMENOrdering Facility: [facility] Address: [address] [address] Performed By: #### 2 4323-8 ####[facility] LABCLIA [id number] [place] [address] Anion gap [Moles/Vol] 9 mmol/L Normal 9-18 [facility] Comment on above: Order Comment: Speci men Type: BLOOD SPECIMENOrdering Facility: [facility] Address: [address] [address] Performed By: #### 2 4323-8 ####[facility] LABCLIA [id number] [place] [address] AST [Catalytic activity/Vol] 27 U/L Normal 14-40 [facility] Comment on above: Order Comment: Speci men Type: BLOOD SPECIMENOrdering Facility: [facility] Address: [address] [address] Performed By: #### 2 4323-8 ####[facility] LABCLIA [id number] [place] [address] Bilirubin [Mass/Vol] 1.0 mg/dL Normal 0.2-1.3 [facility] Comment on above: Order Comment: Speci men Type: BLOOD SPECIMENOrdering Facility: [facility] Address: [address] [address] Performed By: #### 2 4323-8 ####[facility] LABCLIA [id number] [place] [address] Calcium [Mass/Vol] 9.1 mg/dL Normal 8.5-10.2 [facility] Comment on above: Order Comment: Speci men Type: BLOOD SPECIMENOrdering Facility: [facility] Address: [address] [address] Performed By: #### 2 4323-8 ####[facility] LABCLIA [id number] [place] [address] Chloride [Moles/Vol] 102 mmol/L Normal 97-105 [facility] Comment on above: Order Comment: Speci men Type: BLOOD SPECIMENOrdering Facility: [facility] Address: [address] [address] Performed By: #### 2 4323-8 ####[facility] LABCLIA [id number] [place] [address] CO2 [Moles/Vol] 34 mmol/L High 22-30 [facility] Comment on above: Order Comment: Speci men Type: BLOOD SPECIMENOrdering Facility: [facility] Address: [address] [place] [address] Performed By: #### 2 4323-8 ####[facility] LABCLIA [id number] [place] [address] Creatinine [Mass/Vol] 1.47 mg/dL High 0.73-1.22 [facility] Comment on above: Order Comment: Speci men Type: BLOOD SPECIMENOrdering Facility: [facility] Address: [address] [place] [address] Performed By: #### 2 4323-8 ####[facility] LABCLIA [id number] [place] [address] ESTIMATED GLOMERULAR FILTRATION RATE 47 mL/min/1.73m??? Low >=60 [facility] Comment on above: Order Comment: Speci men Type: BLOOD SPECIMENOrdering Facility: [facility] Address: [address] [place] [address] Result Comment: Faye mated Glomerular Filtration Rate [...] actual GFR. Performed By: #### 2 4323-8 ####[facility] LABCLIA [id number] [place] [address] Glucose [Mass/Vol] 126 mg/dL High 74-99 [facility] Comment on above: Order Comment: Speci men Type: BLOOD SPECIMENOrdering Facility: [facility] Address: [address] [place] [address] Result Comment: The [place] [employer] (ADA) provides guidance for cutoff [...] Standards of Medical Care in Diabetes 2016, [place] [employer]. Diabetes Care. 2016.39(Suppl 1). Performed By: #### 2 4323-8 ####[facility] LABCLIA [id number] [place] [address] Potassium [Moles/Vol] 3.5 mmol/L Low 3.7-5.1 [facility] Comment on above: Order Comment: Speci men Type: BLOOD SPECIMENOrdering Facility: [facility] Address: [address] [address] Performed By: #### 2 4323-8 ####[facility] LABCLIA [id number] [place] [address] Protein [Mass/Vol] 6.5 g/dL Normal 6.3-8.0 [facility] Comment on above: Order Comment: Speci men Type: BLOOD SPECIMENOrdering Facility: [facility] Address: [address] [address] Performed By: #### 2 4323-8 ####[facility] LABCLIA [id number] [place] [address] Sodium [Moles/Vol] 145 mmol/L High 136-144 [facility] Comment on above: Order Comment: Speci men Type: BLOOD SPECIMENOrdering Facility: [facility] Address: [address] [address] Performed By: #### 2 4323-8 ####[facility] LABCLIA [id number] [place] [address] Urea nitrogen [Mass/Vol] 23 mg/dL Normal 9-24 [facility] Comment on above: Order Comment: Speci men Type: BLOOD SPECIMENOrdering Facility: [facility] Address: [address] [place] [address] Performed By: #### 2 4323-8 ####[facility] LABCLIA [id number] [place] [address] CNPNon 08-26-2022 CNPN Normal [facility] PRBC LEUKOREDUCEDon 08-24-19 ABO and Rh group Nom (Bld) Cross Match Result Compatible Unit Blood Type O Pos Unit Number [id number] Status Information Transfused Product ID Red Blood Cells Product Code [id number] Cross Match Result Compatible Unit Blood Type O Pos Unit Number [id number] Status Information Transfused Product ID Red Blood Cells Product Code [id number] [facility] Comment on above: Performed By: #### T NS, PRBC #### [facility] [address] [place] [address] Dr. Benito To ABO and Rh group Nom (Bld) Cross Match Result Compatible Unit Blood Type A Pos Unit Number [id number] Status Information Transfused Product ID Red Blood Cells Product Code [id number] Cross Match Result Compatible Unit Blood Type A Pos Unit Number [id number] Status Information Transfused Product ID Red Blood Cells Product Code [id number] [facility] Comment on above: Performed By: #### P RBC, TNS #### [facility] [address] [place] [address] Dr. Benito To CNPNon 08-22-2022 CNPN Normal [facility] CBC W Auto Differential pane l (Bld)on 08-21-2022 Anisocytosis Ql (Bld) Present Normal [facility] Comment on above: Order Comment: Speci men Type: BLOOD SPECIMENOrdering Facility: [facility] Address: [address] [place], [place] [address] Performed By: #### 5 7021-8 ####[facility] LABCLIA [id number] [address] LABCLIA [id number] [place] [address] Basophils (Bld) [#/Vol] 0.06 10*3/uL Normal <0.11 [facility] Comment on above: Order Comment: Speci men Type: BLOOD SPECIMENOrdering Facility: [facility] Address: [address] [place] [address] Performed By: #### 5 7021-8 ####[facility] LABCLIA [id number] [address] LABCLIA [id number] [place] [address] Basophils/100 WBC (Bld) 3.0 % Normal [facility] Comment on above: Order Comment: Speci men Type: BLOOD SPECIMENOrdering Facility: [facility] Address: [address] [place] [address] Performed By: #### 5 7021-8 ####[facility] LABCLIA [id number] [address] LABCLIA [id number] [place] [address] DYSPLASTIC PMNS Occasional Normal [facility] Comment on above: Order Comment: Speci men Type: BLOOD SPECIMENOrdering Facility: [facility] Address: [address] [place] [address] Performed By: #### 5 7021-8 ####[facility] LABCLIA [id number] [address] LABCLIA [id number] [place] [address] Eosinophils (Bld) [#/Vol] 0.02 10*3/uL Normal <0.46 [facility] Comment on above: Order Comment: Speci men Type: BLOOD SPECIMENOrdering Facility: [facility] Address: [address] [place] [address] Performed By: #### 5 7021-8 ####[facility] LABCLIA [id number] [address] [facility] LABCLIA [id number] [place] [address] Eosinophils/100 WBC (Bld) 1.0 % Normal [facility] Comment on above: Order Comment: Speci men Type: BLOOD SPECIMENOrdering Facility: [facility] Address: [address] [place] [address] Performed By: #### 5 7021-8 ####[facility] LABCLIA [id number] [address] LABCLIA [id number] [place] [address] Erythrocyte distribution width (RBC) [Ratio] 15.9 % High 11.5-15.0 [facility] Comment on above: Order Comment: Speci men Type: BLOOD SPECIMENOrdering Facility: [facility] Address: [address] [place] [address] Performed By: #### 5 7021-8 ####[facility] LABCLIA [id number] [address] LABCLIA [id number] [place] [address] Hematocrit (Bld) [Volume fraction] 24.2 % Low 39.0-51.0 [facility] Comment on above: Order Comment: Speci men Type: BLOOD SPECIMENOrdering Facility: [facility] Address: [address] [place] [address] Performed By: #### 5 7021-8 ####[facility] LABCLIA [id number] [place] [facility] [id number] LABCLIA [id number] [place] [address] Hemoglobin (Bld) [Mass/Vol] 7.7 g/dL Low 13.0-17.0 [facility] Comment on above: Order Comment: Speci men Type: BLOOD SPECIMENOrdering Facility: [facility] Address: [address] [place] [address] Performed By: #### 5 7021-8 ####[facility] LABCLIA [id number] [address] LABCLIA [id number] [place] [address] HYPOGRANULATED PMNS Occasional Normal [facility] Comment on above: Order Comment: Speci men Type: BLOOD SPECIMENOrdering Facility: [facility] Address: [address] [place] [address] Performed By: #### 5 7021-8 ####[facility] LABCLIA [id number] [address] LABCLIA [id number] [place] [address] Lymphocytes (Bld) [#/Vol] 0.55 10*3/uL Low 1.00-4.00 [facility] Comment on above: Order Comment: Speci men Type: BLOOD SPECIMENOrdering Facility: [facility] Address: [address] [place], [place] [address] Performed By: #### 5 7021-8 ####[facility] LABCLIA [id number] [address] LABIA [id number] [place] [address] Lymphocytes/100 WBC (Bld) 28.0 % Normal [facility] Comment on above: Order Comment: Speci men Type: BLOOD SPECIMENOrdering Facility: [facility] Address: [address] Performed By: #### 5 7021-8 ####[facility] LABCLIA [id number] [address] LABCLIA [id number] [place] [address] MCH (RBC) [Entitic mass] 30.4 pg Normal 26.0-34.0 [facility] Comment on above: Order Comment: Speci men Type: BLOOD SPECIMENOrdering Facility: [facility] Address: [address] [place] [address] Performed By: #### 5 7021-8 ####[facility] LABCLIA [id number] [address] LABCLIA [id number] [place] [address] MCHC (RBC) [Mass/Vol] 31.8 g/dL Normal 30.5-36.0 [facility] Comment on above: Order Comment: Speci men Type: BLOOD SPECIMENOrdering Facility: [facility] Address: [address] [place], [place] [address] Performed By: #### 5 7021-8 ####[facility] LABCLIA [id number] [address] LABCLIA [id number] [place] [address] MCV (RBC) [Entitic vol] 95.7 fL Normal 80.0-100.0 [facility] Comment on above: Order Comment: Speci men Type: BLOOD SPECIMENOrdering Facility: [facility] Address: [address] [place], [place] [address] Performed By: #### 5 7021-8 ####[facility] LABCLIA [id number] [address] LABCLIA [id number] [place] [address] Metamyelocytes/100 WBC (Bld) 2.0 % Normal [facility] Comment on above: Order Comment: Speci men Type: BLOOD SPECIMENOrdering Facility: [facility] Address: [address] [place] [address] Performed By: #### 5 7021-8 ####[facility] LABCLIA [id number] [address] LABCLIA [id number] [place] [address] Monocytes (Bld) [#/Vol] 0.24 10*3/uL Normal <0.87 [facility] Comment on above: Order Comment: Speci men Type: BLOOD SPECIMENOrdering Facility: [facility] Address: [address] [place] [address] Performed By: #### 5 7021-8 ####[facility] LABCLIA [id number] [address] LABCLIA [id number] [place] [address] Monocytes/100 WBC (Bld) 12.0 % Normal [facility] Comment on above: Order Comment: Speci men Type: BLOOD SPECIMENOrdering Facility: [facility] Address: [address] [place], [place] [address] Performed By: #### 5 7021-8 ####[facility] LABCLIA [id number] [address] LABCLIA [id number] [place] [address] MYELO% 3.0 % Normal [facility] Comment on above: Order Comment: Speci men Type: BLOOD SPECIMENOrdering Facility: [facility] Address: [address] [place], [place] [address] Performed By: #### 5 7021-8 ####[facility] LABCLIA [id number] [address] LABCLIA [id number] [place] [address] Neutrophils (Bld) [#/Vol] 1.01 10*3/uL Low 1.45-7.50 [facility] Comment on above: Order Comment: Speci men Type: BLOOD SPECIMENOrdering Facility: [facility] Address: [address] [address] Performed By: #### 5 7021-8 ####[facility] LABCLIA [id number] [address] LABCLIA [id number] [place] [address] Neutrophils/100 WBC (Bld) 51.0 % Normal [facility] Comment on above: Order Comment: Speci men Type: BLOOD SPECIMENOrdering Facility: [facility] Address: [address] [place] [address] Performed By: #### 5 7021-8 ####[facility] LABCLIA [id number] [address] LABCLIA [id number] [place] [address] Nucleated RBC (Bld) [#/Vol] 10*3/uL Normal <0.01 [facility] Comment on above: Order Comment: Speci men Type: BLOOD SPECIMENOrdering Facility: [facility] Address: [address] [place] [address] Performed By: #### 5 7021-8 ####[facility] LABCLIA [id number] [address] LABCLIA [id number] [place] [address] Nucleated RBC/100 WBC (Bld) [Ratio] 0.0 /100 WBC Normal [facility] Comment on above: Order Comment: Speci men Type: BLOOD SPECIMENOrdering Facility: [facility] Address: [address] [place] [address] Performed By: #### 5 7021-8 ####[facility] LABCLIA [id number] [address] LABCLIA [id number] [place] [address] Ovalocytes LM Ql (Bld) Few Normal [facility] Comment on above: Order Comment: Speci men Type: BLOOD SPECIMENOrdering Facility: [facility] Address: [address] [place] [address] Performed By: #### 5 7021-8 ####[facility] LABCLIA [id number] [address] LABCLIA [id number] [place] [address] Platelet mean volume (Bld) [Entitic vol] Normal [facility] Comment on above: Order Comment: Speci men Type: BLOOD SPECIMENOrdering Facility: [facility] Address: [address] [place] [address] Result Comment: Unab le to report Performed By: #### 5 7021-8 ####[facility] LABCLIA [id number] [address] LABCLIA [id number] [place] [address] Platelets (Bld) [#/Vol] 50 10*3/uL Low 150-400 [facility] Comment on above: Order Comment: Speci men Type: BLOOD SPECIMENOrdering Facility: [facility] Address: [address] [place] [address] Result Comment: Resu lt rechecked. No clot detected. Performed By: #### 5 7021-8 ####[facility] LABCLIA [id number] [address] LABCLIA [id number] [place] [address] Polychromasia LM Ql (Bld) Slight Normal [facility] Comment on above: Order Comment: Speci men Type: BLOOD SPECIMENOrdering Facility: [facility] Address: [address] [place] [address] Performed By: #### 5 7021-8 ####[facility] LABCLIA [id number] [address] LABCLIA [id number] [place] [address] RBC (Bld) [#/Vol] 2.53 10*6/uL Low 4.20-6.00 [facility] Comment on above: Order Comment: Speci men Type: BLOOD SPECIMENOrdering Facility: [facility] Address: [address] [place] [address] Performed By: #### 5 7021-8 ####[facility] LABCLIA [id number] [address] LABCLIA [id number] [place] [address] RED CELL MORPH Reviewed: see result s of individual morphologies Normal [facility] Comment on above: Order Comment: Speci men Type: BLOOD SPECIMENOrdering Facility: [facility] Address: [address] [place], [place] [address] Performed By: #### 5 7021-8 ####[facility] LABCLIA [id number] [address] LABCLIA [id number] [place] [address] WBC (Bld) [#/Vol] 2.00 10*3/uL Low 3.70-11.00 [facility] Comment on above: Order Comment: Speci men Type: BLOOD SPECIMENOrdering Facility: [facility] Address: [address] [place], [place] [address] Result Comment: Resu lt rechecked. No clot detected. Performed By: #### 5 7021-8 ####[facility] LABCLIA [id number] [address] LABCLIA [id number] [place] [address] WBC Left Shift Ql (Bld) Present Normal [facility] Comment on above: Order Comment: Speci men Type: BLOOD SPECIMENOrdering Facility: [facility] Address: [address] [place] [address] Performed By: #### 5 7021-8 ####[facility] LABCLIA [id number] [address] LABCLIA [id number] [place] [address] CNOVSPon 08-21-2022 CNOVSP Normal [facility] CNPNon 08-21-2022 CNPN Normal [facility] Comprehensive metabolic 2000 panelon 08-21-2022 Albumin [Mass/Vol] 4.0 g/dL Normal 3.9-4.9 [facility] Comment on above: Order Comment: Speci men Type: BLOOD SPECIMENOrdering Facility: [facility] Address: [address] Performed By: #### 2 4323-8 ####[facility] LABIA [id number] [place] [address] ALP [Catalytic activity/Vol] 146 U/L High 38-113 [facility] Comment on above: Order Comment: Speci men Type: BLOOD SPECIMENOrdering Facility: [facility] Address: [address] [place] [address] Performed By: #### 2 4323-8 ####[facility] LABCLIA [id number] [place] [address] ALT [Catalytic activity/Vol] 46 U/L Normal 10-54 [facility] Comment on above: Order Comment: Speci men Type: BLOOD SPECIMENOrdering Facility: [facility] Address: [address] [place] [address] Performed By: #### 2 4323-8 ####[facility] LABCLIA [id number] [place] [address] Anion gap [Moles/Vol] 12 mmol/L Normal 9-18 [facility] Comment on above: Order Comment: Speci men Type: BLOOD SPECIMENOrdering Facility: [facility] Address: [address] [place] [address] Performed By: #### 2 4323-8 ####[facility] LABCLIA [id number] [place] [address] AST [Catalytic activity/Vol] 21 U/L Normal 14-40 [facility] Comment on above: Order Comment: Speci men Type: BLOOD SPECIMENOrdering Facility: [facility] Address: [address] [place] [address] Performed By: #### 2 4323-8 ####[facility] LABCLIA [id number] [place] [address] Bilirubin [Mass/Vol] 1.3 mg/dL Normal 0.2-1.3 [facility] Comment on above: Order Comment: Speci men Type: BLOOD SPECIMENOrdering Facility: [facility] Address: [address] [place] [address] Performed By: #### 2 4323-8 ####[facility] LABCLIA [id number] [place] [address] Calcium [Mass/Vol] 8.7 mg/dL Normal 8.5-10.2 [facility] Comment on above: Order Comment: Speci men Type: BLOOD SPECIMENOrdering Facility: [facility] Address: [address] [address] Performed By: #### 2 4323-8 ####[facility] LABCLIA [id number] [place] [address] Chloride [Moles/Vol] 99 mmol/L Normal 97-105 [facility] Comment on above: Order Comment: Speci men Type: BLOOD SPECIMENOrdering Facility: [facility] Address: [address] [place] [address] Performed By: #### 2 4323-8 ####[facility] LABCLIA [id number] [place] [address] CO2 [Moles/Vol] 32 mmol/L High 22-30 [facility] Comment on above: Order Comment: Speci men Type: BLOOD SPECIMENOrdering Facility: [facility] Address: [address] [place] [address] Performed By: #### 2 4323-8 ####[facility] LABCLIA [id number] [place] [address] Creatinine [Mass/Vol] 1.65 mg/dL High 0.73-1.22 [facility] Comment on above: Order Comment: Speci men Type: BLOOD SPECIMENOrdering Facility: [facility] Address: [address] [place] [address] Performed By: #### 2 4323-8 ####[facility] LABCLIA [id number] [place] [address] ESTIMATED GLOMERULAR FILTRATION RATE 41 mL/min/1.73m??? Low >=60 [facility] Comment on above: Order Comment: Speci men Type: BLOOD SPECIMENOrdering Facility: [facility] Address: [address] [place] [address] Result Comment: Faye mated Glomerular Filtration Rate [...] actual GFR. Performed By: #### 2 4323-8 ####[facility] LABCLIA [id number] [place] [address] Glucose [Mass/Vol] 177 mg/dL High 74-99 [facility] Comment on above: Order Comment: Davi avendaño Type: BLOOD SPECIMENOrdering Facility: [facility] Address: [address] [place], [place] [address] Result Comment: The [place] [employer] (ADA) provides guidance for cutoff [...] Standards of Medical Care in Diabetes 2016, [place] [employer]. Diabetes Care. 2016.39(Suppl 1). Performed By: #### 2 4323-8 ####[facility] LABCLIA [id number] [place] [address] Potassium [Moles/Vol] 3.5 mmol/L Low 3.7-5.1 [facility] Comment on above: Order Comment: Davi avendaño Type: BLOOD SPECIMENOrdering Facility: [facility] Address: [address] [place] [address] Performed By: #### 2 4323-8 ####[facility] LABCLIA [id number] [place] [address] Protein [Mass/Vol] 6.5 g/dL Normal 6.3-8.0 [facility] Comment on above: Order Comment: Davi avendaño Type: BLOOD SPECIMENOrdering Facility: [facility] Address: [address] [address] Performed By: #### 2 4323-8 ####[facility] LABCLIA [id number] [place] [address] Sodium [Moles/Vol] 143 mmol/L Normal 136-144 [facility] Comment on above: Order Comment: Speci men Type: BLOOD SPECIMENOrdering Facility: [facility] Address: [address] [address] Performed By: #### 2 4323-8 ####[facility] LABCLIA [id number] [place] [address] Urea nitrogen [Mass/Vol] 28 mg/dL High 9-24 [facility] Comment on above: Order Comment: Speci men Type: BLOOD SPECIMENOrdering Facility: [facility] Address: [address] [address] Performed By: #### 2 4323-8 ####[facility] LABCLIA [id number] [place] [address] HEMOGRAM AND PLATELon 2022 Hematocrit (Bld) [Volume fraction] 26.2 % Critically low 42.0-54.0 [facility] Comment on above: Performed By: #### T NS, PRBC #### [facility] [address] [address] [address] Benito To Hemoglobin (Bld) [Mass/Vol] 7.7 g/dL Critically low 14.0-18.0 [facility] Comment on above: Performed By: #### T NS, PRBC #### [facility] [address] [address] [address] Benito To MCH (RBC) [Entitic mass] 30.2 pg Normal 25.9-34.0 [facility] Comment on above: Performed By: #### T NS, PRBC #### [facility] [address] [address] [address] Benito To MCHC (RBC) [Mass/Vol] 29.4 g/dL Critically low 29.9-35.2 [facility] Comment on above: Performed By: #### T NS, PRBC #### [facility] [address] [address] [address] Benito To MCV (RBC) [Entitic vol] 102.7 fL Critically high 80.0-94.0 [facility] Comment on above: Performed By: #### T NS, PRBC #### [facility] [address] [address] [address] Benito To PLT 44 103/ul Critically low 150-450 [facility] Comment on above: Performed By: #### T NS, PRBC #### [facility] [address] [address] [address] Benito To RBC 2.55 106/ul Critically low 4.70-6.10 [facility] Comment on above: Performed By: #### T NS, PRBC #### [facility] [address] [address] [address] Benito To WBC 1.8 103/ul Critically low 4.0-11.0 [facility] Comment on above: Performed By: #### T NS, PRBC #### [facility] [address] [address] [address] Benito To TYPE AND SCREENon 08-21-2022 TYPE AND SCREEN Negative Normal [facility] Comment on above: Performed By: #### T NS, PRBC #### [facility] [address] [address] [address] Benito To CBC W Auto Differential pane l (Bld)on 08-14-2022 Anisocytosis Ql (Bld) Present Normal [facility] Comment on above: Order Comment: Speci men Type: BLOOD SPECIMENOrdering Facility: [facility] Address: [address] [place] [address] Performed By: #### 5 7021-8 ####[facility] LABCLIA [id number] [address] [place] [address] LABCLIA [id number] [place] [address] Basophils (Bld) [#/Vol] 0.06 10*3/uL Normal <0.11 [facility] Comment on above: Order Comment: Speci men Type: BLOOD SPECIMENOrdering Facility: [facility] Address: [address] [place] [address] Performed By: #### 5 7021-8 ####[facility] LABCLIA [id number] [address] LABCLIA [id number] [place] [address] Basophils/100 WBC (Bld) 3.0 % Normal [facility] Comment on above: Order Comment: Speci men Type: BLOOD SPECIMENOrdering Facility: [facility] Address: [address] [place] [address] Performed By: #### 5 7021-8 ####[facility] LABCLIA [id number] [address] LABCLIA [id number] [place] [address] Differential cell count method Nom (Bld) Manual Normal [facility] Comment on above: Order Comment: Speci men Type: BLOOD SPECIMENOrdering Facility: [facility] Address: [address] [place], [place] [address] Performed By: #### 5 7021-8 ####[facility] LABCLIA [id number] [address] LABCLIA [id number] [place] [address] Eosinophils (Bld) [#/Vol] 0.04 10*3/uL Normal <0.46 [facility] Comment on above: Order Comment: Speci men Type: BLOOD SPECIMENOrdering Facility: [facility] Address: [address] [place], [place] [address] Performed By: #### 5 7021-8 ####[facility] LABCLIA [id number] [address] LABCLIA [id number] [place] [address] Eosinophils/100 WBC (Bld) 2.0 % Normal [facility] Comment on above: Order Comment: Speci men Type: BLOOD SPECIMENOrdering Facility: [facility] Address: [address] [place] [address] Performed By: #### 5 7021-8 ####[facility] LABCLIA [id number] [address] LABCLIA [id number] [place] [address] Erythrocyte distribution width (RBC) [Ratio] 16.4 % High 11.5-15.0 [facility] Comment on above: Order Comment: Speci men Type: BLOOD SPECIMENOrdering Facility: [facility] Address: [address] [place] [address] Performed By: #### 5 7021-8 ####[facility] LABCLIA [id number] [address] LABCLIA [id number] [place] [address] Hematocrit (Bld) [Volume fraction] 23.6 % Low 39.0-51.0 [facility] Comment on above: Order Comment: Speci men Type: BLOOD SPECIMENOrdering Facility: [facility] Address: [address] [place] [address] Performed By: #### 5 7021-8 ####[facility] LABCLIA [id number] [address] LABCLIA [id number] [place] [address] Hemoglobin (Bld) [Mass/Vol] 7.3 g/dL Low 13.0-17.0 [facility] Comment on above: Order Comment: Speci men Type: BLOOD SPECIMENOrdering Facility: [facility] Address: [address] [place] [address] Performed By: #### 5 7021-8 ####[facility] LABCLIA [id number] [address] LABCLIA [id number] [place] [address] Lymphocytes (Bld) [#/Vol] 1.10 10*3/uL Normal 1.00-4.00 [facility] Comment on above: Order Comment: Speci men Type: BLOOD SPECIMENOrdering Facility: [facility] Address: [address] [place] [address] Performed By: #### 5 7021-8 ####[facility] LABCLIA [id number] [address] LABCLIA [id number] [place] [address] Lymphocytes/100 WBC (Bld) 56.0 % Normal [facility] Comment on above: Order Comment: Speci men Type: BLOOD SPECIMENOrdering Facility: [facility] Address: [address] [place] [address] Performed By: #### 5 7021-8 ####[facility] LABCLIA [id number] [address] LABCLIA [id number] [place] [address] MCH (RBC) [Entitic mass] 30.5 pg Normal 26.0-34.0 [facility] Comment on above: Order Comment: Speci men Type: BLOOD SPECIMENOrdering Facility: [facility] Address: [address] [place] [address] Performed By: #### 5 7021-8 ####[facility] LABCLIA [id number] [address] LABCLIA [id number] [place] [address] MCHC (RBC) [Mass/Vol] 30.9 g/dL Normal 30.5-36.0 [facility] Comment on above: Order Comment: Speci men Type: BLOOD SPECIMENOrdering Facility: [facility] Address: [address] [place] [address] Performed By: #### 5 7021-8 ####[facility] LABCLIA [id number] [address] LABCLIA [id number] [place] [address] MCV (RBC) [Entitic vol] 98.7 fL Normal 80.0-100.0 [facility] Comment on above: Order Comment: Speci men Type: BLOOD SPECIMENOrdering Facility: [facility] Address: [address] [place], [place] [address] Performed By: #### 5 7021-8 ####[facility] LABCLIA [id number] [address] LABCLIA [id number] [place] [address] Monocytes (Bld) [#/Vol] 0.12 10*3/uL Normal <0.87 [facility] Comment on above: Order Comment: Speci men Type: BLOOD SPECIMENOrdering Facility: [facility] Address: [address] [place] [address] Performed By: #### 5 7021-8 ####[facility] LABCLIA [id number] [address] LABCLIA [id number] [place] [address] Monocytes/100 WBC (Bld) 6.0 % Normal [facility] Comment on above: Order Comment: Speci men Type: BLOOD SPECIMENOrdering Facility: [facility] Address: [address] [place] [address] Performed By: #### 5 7021-8 ####[facility] LABCLIA [id number] [address] LABCLIA [id number] [place] [address] MYELO% 2.0 % Normal [facility] Comment on above: Order Comment: Speci men Type: BLOOD SPECIMENOrdering Facility: [facility] Address: [address] [place] [address] Performed By: #### 5 7021-8 ####[facility] LABCLIA [id number] [address] LABCLIA [id number] [place] [address] Neutrophils (Bld) [#/Vol] 0.63 10*3/uL Low 1.45-7.50 [facility] Comment on above: Order Comment: Speci men Type: BLOOD SPECIMENOrdering Facility: [facility] Address: [address] [place] [address] Performed By: #### 5 7021-8 ####[facility] LABCLIA [id number] [address] LABCLIA [id number] [place] [address] Neutrophils/100 WBC (Bld) 32.0 % Normal [facility] Comment on above: Order Comment: Speci men Type: BLOOD SPECIMENOrdering Facility: [facility] Address: [address] [place] [address] Performed By: #### 5 7021-8 ####[facility] LABCLIA [id number] [address] LABCLIA [id number] [place] [address] Nucleated RBC (Bld) [#/Vol] 10*3/uL Normal <0.01 [facility] Comment on above: Order Comment: Speci men Type: BLOOD SPECIMENOrdering Facility: [facility] Address: [address] [place] [address] Performed By: #### 5 7021-8 ####[facility] LABCLIA [id number] [address] LABCLIA [id number] [place] [address] Nucleated RBC/100 WBC (Bld) [Ratio] 0.0 /100 WBC Normal [facility] Comment on above: Order Comment: Speci men Type: BLOOD SPECIMENOrdering Facility: [facility] Address: [address] [place], [place] [address] Performed By: #### 5 7021-8 ####[facility] LABCLIA [id number] [address] LABCLIA [id number] [place] [address] Ovalocytes LM Ql (Bld) Few Normal [facility] Comment on above: Order Comment: Speci men Type: BLOOD SPECIMENOrdering Facility: [facility] Address: [address] [place] [address] Performed By: #### 5 7021-8 ####[facility] LABCLIA [id number] [address] LABCLIA [id number] [place] [address] Platelet mean volume (Bld) [Entitic vol] 14.9 fL High 9.0-12.7 [facility] Comment on above: Order Comment: Speci men Type: BLOOD SPECIMENOrdering Facility: [facility] Address: [address] [place], [place] [address] Performed By: #### 5 7021-8 ####[facility] LABCLIA [id number] [address] LABCLIA [id number] [place] [address] Platelets (Bld) [#/Vol] 73 10*3/uL Low 150-400 [facility] Comment on above: Order Comment: Speci men Type: BLOOD SPECIMENOrdering Facility: [facility] Address: [address] [place], [place] [address] Performed By: #### 5 7021-8 ####[facility] LABCLIA [id number] [address] LABCLIA [id number] [place] [address] Platelets Estimate (Bld) [#/Vol] Decreased Normal [facility] Comment on above: Order Comment: Speci men Type: BLOOD SPECIMENOrdering Facility: [facility] Address: [address] [place], [place] [address] Performed By: #### 5 7021-8 ####[facility] LABCLIA [id number] [address] LABCLIA [id number] [place] [address] Polychromasia LM Ql (Bld) Slight Normal [facility] Comment on above: Order Comment: Speci men Type: BLOOD SPECIMENOrdering Facility: [facility] Address: [address] [place], [place] [address] Performed By: #### 5 7021-8 ####[facility] LABCLIA [id number] [address] LABCLIA [id number] [place] [address] RBC (Bld) [#/Vol] 2.39 10*6/uL Low 4.20-6.00 [facility] Comment on above: Order Comment: Speci men Type: BLOOD SPECIMENOrdering Facility: [facility] Address: [address] [place] [address] Performed By: #### 5 7021-8 ####[facility] LABCLIA [id number] [address] LABCLIA [id number] [place] [address] RBC FRAGMENTS Few Abnormal None Seen [facility] Comment on above: Order Comment: Speci men Type: BLOOD SPECIMENOrdering Facility: [facility] Address: [address] [place] [address] Performed By: #### 5 7021-8 ####[facility] LABCLIA [id number] [address] LABCLIA [id number] [place] [address] RED CELL MORPH Reviewed: see result s of individual morphologies Normal [facility] Comment on above: Order Comment: Speci men Type: BLOOD SPECIMENOrdering Facility: [facility] Address: [address] [place], [place] [address] Performed By: #### 5 7021-8 ####[facility] LABCLIA [id number] [address] LABCLIA [id number] [place] [address] WBC (Bld) [#/Vol] 1.97 10*3/uL Low 3.70-11.00 [facility] Comment on above: Order Comment: Speci men Type: BLOOD SPECIMENOrdering Facility: [facility] Address: [address] [place] [address] Result Comment: No c lot detected.Results checked and verified. Performed By: #### 5 7021-8 ####[facility] LABCLIA [id number] [facility] [id number] [address] [facility] LABCLIA [id number] [place] [address] CNOVSPon 08-14-2022 CNOVSP Normal [facility] CNPNon 08-14-2022 CNPN Normal [facility] Comprehensive metabolic 2000 panelon 08-14-2022 Albumin [Mass/Vol] 3.9 g/dL Normal 3.9-4.9 [facility] Comment on above: Order Comment: Speci men Type: BLOOD SPECIMENOrdering Facility: [facility] Address: [address] [place] [address] Performed By: #### 2 4323-8 ####[facility] LABCLIA [id number] [place] [address] ALP [Catalytic activity/Vol] 144 U/L High 38-113 [facility] Comment on above: Order Comment: Speci men Type: BLOOD SPECIMENOrdering Facility: [facility] Address: [address] [place] [address] Performed By: #### 2 4323-8 ####[facility] LABCLIA [id number] [place] [address] ALT [Catalytic activity/Vol] 50 U/L Normal 10-54 [facility] Comment on above: Order Comment: Speci men Type: BLOOD SPECIMENOrdering Facility: [facility] Address: [address] [address] Performed By: #### 2 4323-8 ####[facility] LABCLIA [id number] [place] [address] Anion gap [Moles/Vol] 14 mmol/L Normal 9-18 [facility] Comment on above: Order Comment: Speci men Type: BLOOD SPECIMENOrdering Facility: [facility] Address: [address] [address] Performed By: #### 2 4323-8 ####[facility] LABCLIA [id number] [place] [address] AST [Catalytic activity/Vol] 22 U/L Normal 14-40 [facility] Comment on above: Order Comment: Speci men Type: BLOOD SPECIMENOrdering Facility: [facility] Address: [address] [address] Performed By: #### 2 4323-8 ####[facility] LABCLIA [id number] [place] [address] Bilirubin [Mass/Vol] 1.1 mg/dL Normal 0.2-1.3 [facility] Comment on above: Order Comment: Speci men Type: BLOOD SPECIMENOrdering Facility: [facility] Address: [address] [place] [address] Performed By: #### 2 4323-8 ####[facility] LABCLIA [id number] [place] [address] Calcium [Mass/Vol] 9.3 mg/dL Normal 8.5-10.2 [facility] Comment on above: Order Comment: Speci men Type: BLOOD SPECIMENOrdering Facility: [facility] Address: [address] [place] [address] Performed By: #### 2 4323-8 ####[facility] LABCLIA [id number] [place] [address] Chloride [Moles/Vol] 104 mmol/L Normal 97-105 [facility] Comment on above: Order Comment: Speci men Type: BLOOD SPECIMENOrdering Facility: [facility] Address: [address] [place] [address] Performed By: #### 2 4323-8 ####[facility] LABCLIA [id number] [place] [address] CO2 [Moles/Vol] 30 mmol/L Normal 22-30 [facility] Comment on above: Order Comment: Speci men Type: BLOOD SPECIMENOrdering Facility: [facility] Address: [address] [place] [address] Performed By: #### 2 4323-8 ####[facility] LABCLIA [id number] [place] [address] Creatinine [Mass/Vol] 1.40 mg/dL High 0.73-1.22 [facility] Comment on above: Order Comment: Speci men Type: BLOOD SPECIMENOrdering Facility: [facility] Address: [address] [place] [address] Performed By: #### 2 4323-8 ####[facility] LABCLIA [id number] [place] [address] ESTIMATED GLOMERULAR FILTRATION RATE 50 mL/min/1.73m??? Low >=60 [facility] Comment on above: Order Comment: Speci men Type: BLOOD SPECIMENOrdering Facility: [facility] Address: [address] [place] [address] Result Comment: Faye mated Glomerular Filtration Rate [...] actual GFR. Performed By: #### 2 4323-8 ####[facility] LABIA [id number] [place] [address] Glucose [Mass/Vol] 199 mg/dL High 74-99 [facility] Comment on above: Order Comment: Speci men Type: BLOOD SPECIMENOrdering Facility: [facility] Address: [address] [place] [address] Result Comment: The [place] Diabetes [employer] (ADA) provides guidance for cutoff [...] Standards of Medical Care in Diabetes 2016, [place] [employer]. Diabetes Care. 2016.39(Suppl 1). Performed By: #### 2 4323-8 ####[facility] LABCLIA [id number] [place] [address] Potassium [Moles/Vol] 3.9 mmol/L Normal 3.7-5.1 [facility] Comment on above: Order Comment: Speci men Type: BLOOD SPECIMENOrdering Facility: [facility] Address: [address] [place] [address] Performed By: #### 2 4323-8 ####[facility] LABCLIA [id number] [place] [address] Protein [Mass/Vol] 6.5 g/dL Normal 6.3-8.0 [facility] Comment on above: Order Comment: Speci men Type: BLOOD SPECIMENOrdering Facility: [facility] Address: [address] [place] [address] Performed By: #### 2 4323-8 ####[facility] LABCLIA [id number] [place] [address] Sodium [Moles/Vol] 148 mmol/L High 136-144 [facility] Comment on above: Order Comment: Speci men Type: BLOOD SPECIMENOrdering Facility: [facility] Address: [address] [place] [address] Performed By: #### 2 4323-8 ####[facility] LABCLIA [id number] [place] [address] Urea nitrogen [Mass/Vol] 22 mg/dL Normal 9-24 [facility] Comment on above: Order Comment: Speci men Type: BLOOD SPECIMENOrdering Facility: [facility] Address: [address] [place] [address] Performed By: #### 2 4323-8 ####[facility] LABCLIA [id number] [place] [address] HEMOGRAM AND PLATELon 2022 Hematocrit (Bld) [Volume fraction] 22.4 % Critically low 42.0-54.0 [facility] Comment on above: Performed By: #### H H #### [facility] [address] [address] [address] Benito To Hemoglobin (Bld) [Mass/Vol] 7.2 g/dL Critically low 14.0-18.0 [facility] Comment on above: Performed By: #### H H #### [facility] [address] [address] [address] Benito To MCH (RBC) [Entitic mass] 30.9 pg Normal 25.9-34.0 [facility] Comment on above: Performed By: #### H H #### [facility] [address] [address] [address] Benito To MCHC (RBC) [Mass/Vol] 32.1 g/dL Normal 29.9-35.2 [facility] Comment on above: Performed By: #### H H #### [facility] [address] [address] [address] Benito To MCV (RBC) [Entitic vol] 96.1 fL Critically high 80.0-94.0 [facility] Comment on above: Performed By: #### H H #### [facility] [address] [address] [address] Benito To PLT 59 103/ul Critically low 150-450 [facility] Comment on above: Performed By: #### H H #### [facility] [address] [place] [address] Dr. Benito To RBC 2.33 106/ul Critically low 4.70-6.10 [facility] Comment on above: Performed By: #### H H #### [facility] [address] [address] [address] Benito To WBC 1.8 103/ul Critically low 4.0-11.0 [facility] Comment on above: Performed By: #### H H #### [facility] [address] [address] [address] Benito To LDH SerPl-cCncon 08-14-2022 LDH [Catalytic activity/Vol] 207 U/L Normal 135-225 [facility] Comment on above: Order Comment: Speci men Type: BLOOD SPECIMENOrdering Facility: [facility] Address: [address] [place] [address] Performed By: #### 2 532-0 ####[facility] LABCLIA [id number] [place] [address] TYPE AND SCREENon 08-14-2022 TYPE AND SCREEN Negative Normal [facility] Comment on above: Performed By: #### P RBC, TNS #### [facility] [address] [place] [address] Dr. Benito To CNPNon 08-13-2022 CNPN Normal [facility] PRBC LEUKOREDUCEDon 08-12-19 PRBC LEUKOREDUCED Cross Match Result Compatible Unit Blood Type A Pos Unit Number [id number] Status Information Transfused Product ID Red Blood Cells Product Code [id number] Normal [facility] Comment on above: Performed By: #### P RBC, TNS #### [facility] [address] [place] [address] Dr. Benito To HEMOGLOBIN AND HEMATOCRITon 08-08-2022 Hematocrit (Bld) [Volume fraction] 23.4 % Critically low 42.0-54.0 [facility] Comment on above: Performed By: #### H H #### [facility] [address] [place] [address] Dr. Benito To Hemoglobin (Bld) [Mass/Vol] 7.0 g/dL Critically low 14.0-18.0 [facility] Comment on above: Performed By: #### H H #### [facility] [address] [place], [place] [address] Dr. Benito To TYPE AND SCREENon 08-08-2022 TYPE AND SCREEN Negative Normal [facility] Comment on above: Performed By: #### P RBC, TNS #### [facility] [address] [address] [address] Benito To CBC W Auto Differential pane l (Bld)on 08-07-2022 Anisocytosis Ql (Bld) Present Normal [facility] Comment on above: Order Comment: Speci men Type: BLOOD SPECIMENOrdering Facility: [facility] Address: [address] [place] [address] Performed By: #### 5 7021-8 ####[facility] LABCLIA [id number] [address] LABCLIA [id number] [place] [address] Basophils (Bld) [#/Vol] 0.05 10*3/uL Normal <0.11 [facility] Comment on above: Order Comment: Speci men Type: BLOOD SPECIMENOrdering Facility: [facility] Address: [address] [place] [address] Performed By: #### 5 7021-8 ####[facility] LABCLIA [id number] [address] LABCLIA [id number] [place] [address] Basophils/100 WBC (Bld) 3.0 % Normal [facility] Comment on above: Order Comment: Speci men Type: BLOOD SPECIMENOrdering Facility: [facility] Address: [address] [place], [place] [address] Performed By: #### 5 7021-8 ####[facility] LABCLIA [id number] [address] LABCLIA [id number] [place] [address] Differential cell count method Nom (Bld) Manual Normal [facility] Comment on above: Order Comment: Speci men Type: BLOOD SPECIMENOrdering Facility: [facility] Address: [address] [place] [address] Performed By: #### 5 7021-8 ####[facility] LABCLIA [id number] [address] LABCLIA [id number] [place] [address] Eosinophils (Bld) [#/Vol] 0.05 10*3/uL Normal <0.46 [facility] Comment on above: Order Comment: Speci men Type: BLOOD SPECIMENOrdering Facility: [facility] Address: [address] [place] [address] Performed By: #### 5 7021-8 ####[facility] LABCLIA [id number] [address] LABCLIA [id number] [place] [address] Eosinophils/100 WBC (Bld) 3.0 % Normal [facility] Comment on above: Order Comment: Speci men Type: BLOOD SPECIMENOrdering Facility: [facility] Address: [address] [place], [place] [address] Performed By: #### 5 7021-8 ####[facility] LABCLIA [id number] [address] LABCLIA [id number] [place] [address] Erythrocyte distribution width (RBC) [Ratio] 16.4 % High 11.5-15.0 [facility] Comment on above: Order Comment: Speci men Type: BLOOD SPECIMENOrdering Facility: [facility] Address: [address] [place], [place] [address] Performed By: #### 5 7021-8 ####[facility] LABCLIA [id number] [address] LABCLIA [id number] [place] [address] Giant platelets LM Ql (Bld) Occasional Normal [facility] Comment on above: Order Comment: Speci men Type: BLOOD SPECIMENOrdering Facility: [facility] Address: [address] [place] [address] Performed By: #### 5 7021-8 ####[facility] LABCLIA [id number] [address] LABCLIA [id number] [place] [address] Hematocrit (Bld) [Volume fraction] 23.4 % Low 39.0-51.0 [facility] Comment on above: Order Comment: Speci men Type: BLOOD SPECIMENOrdering Facility: [facility] Address: [address] [place] [address] Performed By: #### 5 7021-8 ####[facility] LABCLIA [id number] [address] LABCLIA [id number] [place] [address] Hemoglobin (Bld) [Mass/Vol] 7.2 g/dL Low 13.0-17.0 [facility] Comment on above: Order Comment: Speci men Type: BLOOD SPECIMENOrdering Facility: [facility] Address: [address] [place] [address] Performed By: #### 5 7021-8 ####[facility] LABCLIA [id number] [address] LABCLIA [id number] [place] [address] Lymphocytes (Bld) [#/Vol] 0.89 10*3/uL Low 1.00-4.00 [facility] Comment on above: Order Comment: Speci men Type: BLOOD SPECIMENOrdering Facility: [facility] Address: [address] [place] [address] Performed By: #### 5 7021-8 ####[facility] LABCLIA [id number] [address] LABCLIA [id number] [place] [address] Lymphocytes/100 WBC (Bld) 54.0 % Normal [facility] Comment on above: Order Comment: Speci men Type: BLOOD SPECIMENOrdering Facility: [facility] Address: [address] [place] [address] Performed By: #### 5 7021-8 ####[facility] LABCLIA [id number] [address] LABCLIA [id number] [place] [address] MCH (RBC) [Entitic mass] 30.3 pg Normal 26.0-34.0 [facility] Comment on above: Order Comment: Speci men Type: BLOOD SPECIMENOrdering Facility: [facility] Address: [address] [place] [address] Performed By: #### 5 7021-8 ####[facility] LABCLIA [id number] [address] LABCLIA [id number] [place] [address] MCHC (RBC) [Mass/Vol] 30.8 g/dL Normal 30.5-36.0 [facility] Comment on above: Order Comment: Speci men Type: BLOOD SPECIMENOrdering Facility: [facility] Address: [address] [place] [address] Performed By: #### 5 7021-8 ####[facility] LABCLIA [id number] [address] LABCLIA [id number] [place] [address] MCV (RBC) [Entitic vol] 98.3 fL Normal 80.0-100.0 [facility] Comment on above: Order Comment: Speci men Type: BLOOD SPECIMENOrdering Facility: [facility] Address: [address] [address] Performed By: #### 5 7021-8 ####[facility] LABCLIA [id number] [address] LABCLIA [id number] [place] [address] Monocytes (Bld) [#/Vol] 0.12 10*3/uL Normal <0.87 [facility] Comment on above: Order Comment: Speci men Type: BLOOD SPECIMENOrdering Facility: [facility] Address: [address] [place] [address] Performed By: #### 5 7021-8 ####[facility] LABCLIA [id number] [address] LABCLIA [id number] [place] [address] Monocytes/100 WBC (Bld) 7.0 % Normal [facility] Comment on above: Order Comment: Speci men Type: BLOOD SPECIMENOrdering Facility: [facility] Address: [address] [place] [address] Performed By: #### 5 7021-8 ####[facility] LABCLIA [id number] [address] LABCLIA [id number] [place] [address] Neutrophils (Bld) [#/Vol] 0.54 10*3/uL Low 1.45-7.50 [facility] Comment on above: Order Comment: Speci men Type: BLOOD SPECIMENOrdering Facility: [facility] Address: [address] [place] [address] Performed By: #### 5 7021-8 ####[facility] LABCLIA [id number] [address] LABCLIA [id number] [place] [address] Neutrophils/100 WBC (Bld) 33.0 % Normal [facility] Comment on above: Order Comment: Speci men Type: BLOOD SPECIMENOrdering Facility: [facility] Address: [address] [place] [address] Performed By: #### 5 7021-8 ####[facility] LABCLIA [id number] [address] LABCLIA [id number] [place] [address] Nucleated RBC (Bld) [#/Vol] 10*3/uL Normal <0.01 [facility] Comment on above: Order Comment: Speci men Type: BLOOD SPECIMENOrdering Facility: [facility] Address: [address] [place] [address] Result Comment: This result was previously suppressed from the chart. Performed By: #### 5 7021-8 ####[facility] LABCLIA [id number] [address] LABIA [id number] [place] [address] Nucleated RBC/100 WBC (Bld) [Ratio] 0.0 /100 WBC Normal [facility] Comment on above: Order Comment: Speci men Type: BLOOD SPECIMENOrdering Facility: [facility] Address: [address] [place] [address] Performed By: #### 5 7021-8 ####[facility] LABCLIA [id number] [address] LABCLIA [id number] [place] [address] Ovalocytes LM Ql (Bld) Few Normal [facility] Comment on above: Order Comment: Speci men Type: BLOOD SPECIMENOrdering Facility: [facility] Address: [address] [place] [address] Performed By: #### 5 7021-8 ####[facility] LABCLIA [id number] [address] LABCLIA [id number] [place] [address] Platelet mean volume (Bld) [Entitic vol] 15.0 fL High 9.0-12.7 [facility] Comment on above: Order Comment: Speci men Type: BLOOD SPECIMENOrdering Facility: [facility] Address: [address] [place] [address] Performed By: #### 5 7021-8 ####[facility] LABCLIA [id number] [address] LABCLIA [id number] [place] [address] Platelets (Bld) [#/Vol] 76 10*3/uL Low 150-400 [facility] Comment on above: Order Comment: Speci men Type: BLOOD SPECIMENOrdering Facility: [facility] Address: [address] [place] [address] Performed By: #### 5 7021-8 ####[facility] LABCLIA [id number] [address] LABCLIA [id number] [place] [address] Platelets Estimate (Bld) [#/Vol] Decreased Normal [facility] Comment on above: Order Comment: Speci men Type: BLOOD SPECIMENOrdering Facility: [facility] Address: [address] [place] [address] Performed By: #### 5 7021-8 ####[facility] LABCLIA [id number] [address] LABCLIA [id number] [place] [address] RBC (Bld) [#/Vol] 2.38 10*6/uL Low 4.20-6.00 [facility] Comment on above: Order Comment: Speci men Type: BLOOD SPECIMENOrdering Facility: [facility] Address: [address] [place] [address] Performed By: #### 5 7021-8 ####[facility] LABCLIA [id number] [address] LABCLIA [id number] [place] [address] RED CELL MORPH Reviewed: see result s of individual morphologies Normal [facility] Comment on above: Order Comment: Speci men Type: BLOOD SPECIMENOrdering Facility: [facility] Address: [address] [place] [address] Performed By: #### 5 7021-8 ####[facility] LABCLIA [id number] [address] LABCLIA [id number] [place] [address] WBC (Bld) [#/Vol] 1.65 10*3/uL Low 3.70-11.00 [facility] Comment on above: Order Comment: Speci men Type: BLOOD SPECIMENOrdering Facility: [facility] Address: [address] [place] [address] Performed By: #### 5 7021-8 ####[facility] LABCLIA [id number] [facility] [place] [address] [facility] LABCLIA [id number] [place] [address] CNOVSPon 08-07-2022 CNOVSP Normal [facility] Comprehensive metabolic 2000 panelon 08-07-2022 Albumin [Mass/Vol] 3.9 g/dL Normal 3.9-4.9 [facility] Comment on above: Order Comment: Speci men Type: BLOOD SPECIMENOrdering Facility: [facility] Address: [address] [address] Performed By: #### 2 4323-8 ####[facility] LABCLIA [id number] [place] [address] ALP [Catalytic activity/Vol] 144 U/L High 38-113 [facility] Comment on above: Order Comment: Speci men Type: BLOOD SPECIMENOrdering Facility: [facility] Address: [address] [address] Performed By: #### 2 4323-8 ####[facility] LABIA [id number] [place] [address] ALT [Catalytic activity/Vol] 64 U/L High 10-54 [facility] Comment on above: Order Comment: Speci men Type: BLOOD SPECIMENOrdering Facility: [facility] Address: [address] [address] Performed By: #### 2 4323-8 ####[facility] LABCLIA [id number] [place] [address] Anion gap [Moles/Vol] 9 mmol/L Normal 9-18 [facility] Comment on above: Order Comment: Speci men Type: BLOOD SPECIMENOrdering Facility: [facility] Address: [address] [address] Performed By: #### 2 4323-8 ####[facility] LABCLIA [id number] [place] [address] AST [Catalytic activity/Vol] 31 U/L Normal 14-40 [facility] Comment on above: Order Comment: Speci men Type: BLOOD SPECIMENOrdering Facility: [facility] Address: [address] [place] [address] Performed By: #### 2 4323-8 ####[facility] LABCLIA [id number] [place] [address] Bilirubin [Mass/Vol] 1.0 mg/dL Normal 0.2-1.3 [facility] Comment on above: Order Comment: Speci men Type: BLOOD SPECIMENOrdering Facility: [facility] Address: [address] [place] [address] Performed By: #### 2 4323-8 ####[facility] LABCLIA [id number] [place] [address] Calcium [Mass/Vol] 9.0 mg/dL Normal 8.5-10.2 [facility] Comment on above: Order Comment: Speci men Type: BLOOD SPECIMENOrdering Facility: [facility] Address: [address] [address] Performed By: #### 2 4323-8 ####[facility] LABCLIA [id number] [place] [address] Chloride [Moles/Vol] 102 mmol/L Normal 97-105 [facility] Comment on above: Order Comment: Speci men Type: BLOOD SPECIMENOrdering Facility: [facility] Address: [address] [address] Performed By: #### 2 4323-8 ####[facility] LABCLIA [id number] [place] [address] CO2 [Moles/Vol] 32 mmol/L High 22-30 [facility] Comment on above: Order Comment: Speci men Type: BLOOD SPECIMENOrdering Facility: [facility] Address: [address] [place] [address] Performed By: #### 2 4323-8 ####[facility] LABCLIA [id number] [place] [address] Creatinine [Mass/Vol] 1.54 mg/dL High 0.73-1.22 [facility] Comment on above: Order Comment: Davi avendaño Type: BLOOD SPECIMENOrdering Facility: [facility] Address: [address] [place] [address] Performed By: #### 2 4323-8 ####[facility] LABCLIA [id number] [place] [address] ESTIMATED GLOMERULAR FILTRATION RATE 44 mL/min/1.73m??? Low >=60 [facility] Comment on above: Order Comment: Davi avendaño Type: BLOOD SPECIMENOrdering Facility: [facility] Address: [address] [place] [address] Result Comment: Faye mated Glomerular Filtration Rate [...] actual GFR. Performed By: #### 2 4323-8 ####[facility] LABCLIA [id number] [place] [address] Glucose [Mass/Vol] 138 mg/dL High 74-99 [facility] Comment on above: Order Comment: Davi kateryna Type: BLOOD SPECIMENOrdering Facility: [facility] Address: [address] [place] [address] Result Comment: The [place] [employer] (ADA) provides guidance for cutoff [...] Standards of Medical Care in Diabetes 2016, [place] [employer]. Diabetes Care. 2016.39(Suppl 1). Performed By: #### 2 4323-8 ####[facility] LABCLIA [id number] [place] [address] Potassium [Moles/Vol] 4.2 mmol/L Normal 3.7-5.1 [facility] Comment on above: Order Comment: Speci men Type: BLOOD SPECIMENOrdering Facility: [facility] Address: [address] [address] Performed By: #### 2 4323-8 ####[facility] LABCLIA [id number] [place] [address] Protein [Mass/Vol] 6.1 g/dL Low 6.3-8.0 [facility] Comment on above: Order Comment: Speci men Type: BLOOD SPECIMENOrdering Facility: [facility] Address: [address] [address] Performed By: #### 2 4323-8 ####[facility] LABCLIA [id number] [place] [address] Sodium [Moles/Vol] 143 mmol/L Normal 136-144 [facility] Comment on above: Order Comment: Speci men Type: BLOOD SPECIMENOrdering Facility: [facility] Address: [address] [address] Performed By: #### 2 4323-8 ####[facility] LABCLIA [id number] [place] [address] Urea nitrogen [Mass/Vol] 27 mg/dL High 9-24 [facility] Comment on above: Order Comment: Speci men Type: BLOOD SPECIMENOrdering Facility: [facility] Address: [address] [address] Performed By: #### 2 4323-8 ####[facility] LABCLIA [id number] [place] [address] CBC W Auto Differential pane l (Bld)on 07-30-2022 Anisocytosis Ql (Bld) Present Normal [facility] Comment on above: Order Comment: Speci men Type: BLOOD SPECIMENOrdering Facility: [facility] Address: [address] [place] [address] Performed By: #### 5 7021-8 ####[facility] LABCLIA [id number] [address] LABCLIA [id number] [place] [address] Basophils (Bld) [#/Vol] 0.06 10*3/uL Normal <0.11 [facility] Comment on above: Order Comment: Speci men Type: BLOOD SPECIMENOrdering Facility: [facility] Address: [address] [place] [address] Performed By: #### 5 7021-8 ####[facility] LABCLIA [id number] [address] LABCLIA [id number] [place] [address] Basophils/100 WBC (Bld) 3.0 % Normal [facility] Comment on above: Order Comment: Speci men Type: BLOOD SPECIMENOrdering Facility: [facility] Address: [address] [place], [place] [address] Performed By: #### 5 7021-8 ####[facility] LABCLIA [id number] [address] LABCLIA [id number] [place] [address] BLAST% 1.0 % High <=0.0 [facility] Comment on above: Order Comment: Speci men Type: BLOOD SPECIMENOrdering Facility: [facility] Address: [address] [place] [address] Result Comment: This result was previously suppressed from the chart. Performed By: #### 5 7021-8 ####[facility] LABCLIA [id number] [address] LABCLIA [id number] [place] [address] Differential cell count method Nom (Bld) Manual Normal [facility] Comment on above: Order Comment: Speci men Type: BLOOD SPECIMENOrdering Facility: [facility] Address: [address] [place] [address] Performed By: #### 5 7021-8 ####[facility] LABCLIA [id number] [address] LABCLIA [id number] [place] [id number] Eosinophils (Bld) [#/Vol] 0.08 10*3/uL Normal <0.46 [facility] Comment on above: Order Comment: Speci men Type: BLOOD SPECIMENOrdering Facility: [facility] Address: [address] [place] [address] Performed By: #### 5 7021-8 ####[facility] LABCLIA [id number] [address] LABCLIA [id number] [place] [id number] Eosinophils/100 WBC (Bld) 4.0 % Normal [facility] Comment on above: Order Comment: Speci men Type: BLOOD SPECIMENOrdering Facility: [facility] Address: [address] [place] [address] Performed By: #### 5 7021-8 ####[facility] LABCLIA [id number] [address] LABCLIA [id number] [place] [address] Erythrocyte distribution width (RBC) [Ratio] 15.9 % High 11.5-15.0 [facility] Comment on above: Order Comment: Speci men Type: BLOOD SPECIMENOrdering Facility: [facility] Address: [address] [place] [address] Performed By: #### 5 7021-8 ####[facility] LABCLIA [id number] [address] LABCLIA [id number] [place] [address] Giant platelets LM Ql (Bld) Occasional Normal [facility] Comment on above: Order Comment: Speci men Type: BLOOD SPECIMENOrdering Facility: [facility] Address: [address] [place] [address] Performed By: #### 5 7021-8 ####[facility] LABCLIA [id number] [address] LABCLIA [id number] [place] [address] Hematocrit (Bld) [Volume fraction] 27.5 % Low 39.0-51.0 [facility] Comment on above: Order Comment: Speci men Type: BLOOD SPECIMENOrdering Facility: [facility] Address: [address] [place] [address] Performed By: #### 5 7021-8 ####[facility] LABCLIA [id number] [address] LABIA [id number] [place] [address] Hemoglobin (Bld) [Mass/Vol] 8.6 g/dL Low 13.0-17.0 [facility] Comment on above: Order Comment: Speci men Type: BLOOD SPECIMENOrdering Facility: [facility] Address: [address] [place] [address] Performed By: #### 5 7021-8 ####[facility] LABCLIA [id number] [address] LABCLIA [id number] [place] [address] Lymphocytes (Bld) [#/Vol] 0.84 10*3/uL Low 1.00-4.00 [facility] Comment on above: Order Comment: Speci men Type: BLOOD SPECIMENOrdering Facility: [facility] Address: [address] [place], [place] [address] Performed By: #### 5 7021-8 ####[facility] LABCLIA [id number] [address] LABCLIA [id number] [place] [address] Lymphocytes/100 WBC (Bld) 41.0 % Normal [facility] Comment on above: Order Comment: Speci men Type: BLOOD SPECIMENOrdering Facility: [facility] Address: [address] [place] [address] Performed By: #### 5 7021-8 ####[facility] LABCLIA [id number] [address] LABCLIA [id number] [place] [address] MCH (RBC) [Entitic mass] 30.5 pg Normal 26.0-34.0 [facility] Comment on above: Order Comment: Speci men Type: BLOOD SPECIMENOrdering Facility: [facility] Address: [address] [place], [place] [address] Performed By: #### 5 7021-8 ####[facility] LABCLIA [id number] [address] LABCLIA [id number] [place] [address] MCHC (RBC) [Mass/Vol] 31.3 g/dL Normal 30.5-36.0 [facility] Comment on above: Order Comment: Speci men Type: BLOOD SPECIMENOrdering Facility: [facility] Address: [address] [place] [address] Performed By: #### 5 7021-8 ####[facility] LABCLIA [id number] [address] LABCLIA [id number] [place] [address] MCV (RBC) [Entitic vol] 97.5 fL Normal 80.0-100.0 [facility] Comment on above: Order Comment: Speci men Type: BLOOD SPECIMENOrdering Facility: [facility] Address: [address] [place] [address] Performed By: #### 5 7021-8 ####[facility] LABCLIA [id number] [address] LABCLIA [id number] [place] [id number] Monocytes (Bld) [#/Vol] 0.10 10*3/uL Normal <0.87 [facility] Comment on above: Order Comment: Speci men Type: BLOOD SPECIMENOrdering Facility: [facility] Address: [address] [place], [place] [address] Performed By: #### 5 7021-8 ####[facility] LABCLIA [id number] [address] LABCLIA [id number] [place] [id number] Monocytes/100 WBC (Bld) 5.0 % Normal [facility] Comment on above: Order Comment: Speci men Type: BLOOD SPECIMENOrdering Facility: [facility] Address: [address] [place], [place] [address] Performed By: #### 5 7021-8 ####[facility] LABCLIA [id number] [address] LABCLIA [id number] [place] [address] Neutrophils (Bld) [#/Vol] 0.95 10*3/uL Low 1.45-7.50 [facility] Comment on above: Order Comment: Speci men Type: BLOOD SPECIMENOrdering Facility: [facility] Address: [address] [place] [address] Performed By: #### 5 7021-8 ####[facility] LABCLIA [id number] [address] LABCLIA [id number] [place] [address] Neutrophils/100 WBC (Bld) 46.0 % Normal [facility] Comment on above: Order Comment: Speci men Type: BLOOD SPECIMENOrdering Facility: [facility] Address: [address] [place] [address] Performed By: #### 5 7021-8 ####[facility] LABCLIA [id number] [address] LABCLIA [id number] [place] [address] Nucleated RBC (Bld) [#/Vol] 10*3/uL Normal <0.01 [facility] Comment on above: Order Comment: Speci men Type: BLOOD SPECIMENOrdering Facility: [facility] Address: [address] [place] [address] Result Comment: This result was previously suppressed from the chart. Performed By: #### 5 7021-8 ####[facility] LABCLIA [id number] [address] LABCLIA [id number] [place] [address] Nucleated RBC/100 WBC (Bld) [Ratio] 0.0 /100 WBC Normal [facility] Comment on above: Order Comment: Speci men Type: BLOOD SPECIMENOrdering Facility: [facility] Address: [address] [place] [address] Performed By: #### 5 7021-8 ####[facility] LABCLIA [id number] [address] LABCLIA [id number] [place] [address] Ovalocytes LM Ql (Bld) Few Normal [facility] Comment on above: Order Comment: Speci men Type: BLOOD SPECIMENOrdering Facility: [facility] Address: [address] [place] [address] Performed By: #### 5 7021-8 ####[facility] LABCLIA [id number] [address] LABCLIA [id number] [place] [address] Platelet mean volume (Bld) [Entitic vol] Normal [facility] Comment on above: Order Comment: Speci men Type: BLOOD SPECIMENOrdering Facility: [facility] Address: [address] [place] [address] Result Comment: Unab le to report Performed By: #### 5 7021-8 ####[facility] LABCLIA [id number] [address] LABCLIA [id number] [place] [address] Platelets (Bld) [#/Vol] 84 10*3/uL Low 150-400 [facility] Comment on above: Order Comment: Speci men Type: BLOOD SPECIMENOrdering Facility: [facility] Address: [address] [place] [address] Performed By: #### 5 7021-8 ####[facility] LABCLIA [id number] [address] LABCLIA [id number] [place] [address] Platelets Estimate (Bld) [#/Vol] Decreased Normal [facility] Comment on above: Order Comment: Speci men Type: BLOOD SPECIMENOrdering Facility: [facility] Address: [address] [address] Performed By: #### 5 7021-8 ####[facility] LABCLIA [id number] [address] LABCLIA [id number] [place] [address] RBC (Bld) [#/Vol] 2.82 10*6/uL Low 4.20-6.00 [facility] Comment on above: Order Comment: Speci men Type: BLOOD SPECIMENOrdering Facility: [facility] Address: [address] [place] [address] Performed By: #### 5 7021-8 ####[facility] LABCLIA [id number] [address] LABCLIA [id number] [place] [address] RED CELL MORPH Reviewed: see result s of individual morphologies Normal [facility] Comment on above: Order Comment: Speci men Type: BLOOD SPECIMENOrdering Facility: [facility] Address: [address] [place] [address] Performed By: #### 5 7021-8 ####[facility] LABCLIA [id number] [address] LABCLIA [id number] [place] [address] WBC (Bld) [#/Vol] 2.06 10*3/uL Low 3.70-11.00 [facility] Comment on above: Order Comment: Speci men Type: BLOOD SPECIMENOrdering Facility: [facility] Address: [address] [place] [address] Performed By: #### 5 7021-8 ####[facility] LABCLIA [id number] [facility] [id number] LABCLIA [id number] [place] [address] CNOVSPon 07-30-2022 CNOVSP Normal [facility] metabolic 2000 panelon 07-30-2022 Albumin [Mass/Vol] 3.9 g/dL Normal 3.9-4.9 [facility] Comment on above: Order Comment: Speci men Type: BLOOD SPECIMENOrdering Facility: [facility] Address: [address] [place] [address] Performed By: #### 2 4323-8 ####[facility] LABCLIA [id number] [place] [address] ALP [Catalytic activity/Vol] 130 U/L High 38-113 [facility] Comment on above: Order Comment: Speci men Type: BLOOD SPECIMENOrdering Facility: [facility] Address: [address] [place] [address] Performed By: #### 2 4323-8 ####[facility] LABCLIA [id number] [place] [address] ALT [Catalytic activity/Vol] 45 U/L Normal 10-54 [facility] Comment on above: Order Comment: Speci men Type: BLOOD SPECIMENOrdering Facility: [facility] Address: [address] [place] [address] Performed By: #### 2 4323-8 ####[facility] LABCLIA [id number] [place] [address] Anion gap [Moles/Vol] 9 mmol/L Normal 9-18 [facility] Comment on above: Order Comment: Speci men Type: BLOOD SPECIMENOrdering Facility: [facility] Address: [address] [address] Performed By: #### 2 4323-8 ####[facility] LABCLIA [id number] [place] [address] AST [Catalytic activity/Vol] 24 U/L Normal 14-40 [facility] Comment on above: Order Comment: Speci men Type: BLOOD SPECIMENOrdering Facility: [facility] Address: [address] [address] Performed By: #### 2 4323-8 ####[facility] LABCLIA [id number] [place] [address] Bilirubin [Mass/Vol] 1.0 mg/dL Normal 0.2-1.3 [facility] Comment on above: Order Comment: Speci men Type: BLOOD SPECIMENOrdering Facility: [facility] Address: [address] [address] Performed By: #### 2 4323-8 ####[facility] LABCLIA [id number] [place] [address] Calcium [Mass/Vol] 9.2 mg/dL Normal 8.5-10.2 [facility] Comment on above: Order Comment: Speci men Type: BLOOD SPECIMENOrdering Facility: [facility] Address: [address] [address] Performed By: #### 2 4323-8 ####[facility] LABCLIA [id number] [place] [address] Chloride [Moles/Vol] 100 mmol/L Normal 97-105 [facility] Comment on above: Order Comment: Speci men Type: BLOOD SPECIMENOrdering Facility: [facility] Address: [address] [place] [address] Performed By: #### 2 4323-8 ####[facility] LABCLIA [id number] [place] [address] CO2 [Moles/Vol] 34 mmol/L High 22-30 [facility] Comment on above: Order Comment: Speci men Type: BLOOD SPECIMENOrdering Facility: [facility] Address: [address] [address] Performed By: #### 2 4323-8 ####[facility] LABCLIA [id number] [place] [address] Creatinine [Mass/Vol] 1.50 mg/dL High 0.73-1.22 [facility] Comment on above: Order Comment: Speci men Type: BLOOD SPECIMENOrdering Facility: [facility] Address: [address] [place] [address] Performed By: #### 2 4323-8 ####[facility] LABCLIA [id number] [place] [address] ESTIMATED GLOMERULAR FILTRATION RATE 46 mL/min/1.73m??? Low >=60 [facility] Comment on above: Order Comment: Speci men Type: BLOOD SPECIMENOrdering Facility: [facility] Address: [address] [place] [address] Result Comment: Faye mated Glomerular Filtration Rate [...] actual GFR. Performed By: #### 2 4323-8 ####[facility] LABCLIA [id number] [place] [address] Glucose [Mass/Vol] 206 mg/dL High 74-99 [facility] Comment on above: Order Comment: Speci men Type: BLOOD SPECIMENOrdering Facility: [facility] Address: [address] [place] [address] Result Comment: The [place] [employer] (ADA) provides guidance for cutoff [...] Standards of Medical Care in Diabetes 2016, [place] [employer]. Diabetes Care. 2016.39(Suppl 1). Performed By: #### 2 4323-8 ####[facility] LABCLIA [id number] [place] [address] Potassium [Moles/Vol] 3.9 mmol/L Normal 3.7-5.1 [facility] Comment on above: Order Comment: Speci men Type: BLOOD SPECIMENOrdering Facility: [facility] Address: [address] [address] Performed By: #### 2 4323-8 ####[facility] LABCLIA [id number] [place] [address] Protein [Mass/Vol] 6.3 g/dL Normal 6.3-8.0 [facility] Comment on above: Order Comment: Speci men Type: BLOOD SPECIMENOrdering Facility: [facility] Address: [address] [place] [address] Performed By: #### 2 4323-8 ####[facility] LABCLIA [id number] [place] [address] Sodium [Moles/Vol] 143 mmol/L Normal 136-144 [facility] Comment on above: Order Comment: Speci men Type: BLOOD SPECIMENOrdering Facility: [facility] Address: [address] [address] Performed By: #### 2 4323-8 ####[facility] LABCLIA [id number] [place] [address] Urea nitrogen [Mass/Vol] 22 mg/dL Normal 9-24 [facility] Comment on above: Order Comment: Speci men Type: BLOOD SPECIMENOrdering Facility: [facility] Address: [address] [place], [place] [address] [address] Performed By: #### 2 4323-8 ####[facility] LABCLIA [id number] [place] [address] PRBC LEUKOREDUCEDon 07-27-20 22 ABO and Rh group Nom (Bld) Cross Match Result Compatible Unit Blood Type A Pos Unit Number [id number] Status Information Transfused Product ID Red Blood Cells Product Code [id number] Cross Match Result Compatible Unit Blood Type A Pos Unit Number [id number] Status Information Transfused Product ID Red Blood Cells Product Code [id number] [facility] Comment on above: Performed By: #### H H #### [facility] [address] [place] [address] Dr. Benito To [facility] 07-25-2022 [facility] PRBC LEUKOREDUCEDon 07-25-20 22 ABO and Rh group Nom (Bld) Cross Match Result Compatible Unit Blood Type A Pos Unit Number [id number] Status Information Transfused Product ID Red Blood Cells Product Code [id number] Cross Match Result Compatible Unit Blood Type A Pos Unit Number [id number] Status Information Transfused Product ID Red Blood Cells Product Code [id number] [facility] Comment on above: Performed By: #### P RBC, TNS #### [facility] [address] [place] [address] Dr. Benito To ABO and Rh group Nom (Bld) Cross Match Result Compatible Unit Blood Type O Neg Unit Number [id number] Status Information Transfused Product ID Red Blood Cells Product Code [id number] Cross Match Result Compatible Unit Blood Type O Pos Unit Number [id number] Status Information Transfused Product ID Red Blood Cells Product Code [id number] [facility] Comment on above: Performed By: #### T NS, PRBC #### [facility] [address] [place] [address] Dr. Benito To ABO and Rh group Nom (Bld) Cross Match Result Compatible Unit Blood Type A Pos Unit Number [id number] Status Information Transfused Product ID Red Blood Cells Product Code X3437E60 Cross Match Result Compatible Unit Blood Type A Pos Unit Number [id number] Status Information Transfused Product ID Red Blood Cells Product Code [id number] Normal [facility] Comment on above: Performed By: #### P RBC, TNS #### [facility] [address] [place] [address] Dr. Benito To PRBC LEUKOREDUCED Cross Match Result Compatible Unit Blood Type A Pos Unit Number [id number] Status Information Transfused Product ID Red Blood Cells Product Code [id number] [facility] Comment on above: Performed By: #### T NS, PRBC #### [facility] [address] [place] [address] Dr. Benito To PRBC LEUKOREDUCED Cross Match Result Compatible Unit Blood Type A Pos Unit Number [id number] Status Information Transfused Product ID Red Blood Cells Product Code [id number] Normal [facility] Comment on above: Performed By: #### H GBHCT #### [facility] [address] [place] [address] Dr. [facility] CNPN Normal [facility] HEMOGLOBIN AND HEMATOCRITon 07-24-2022 Hematocrit (Bld) [Volume fraction] 22.2 % Critically low 42.0-54.0 [facility] Comment on above: Performed By: #### T NS, PRBC #### [facility] [address] [place] [address] Dr. Benito To Hemoglobin (Bld) [Mass/Vol] 7.0 g/dL Critically low 14.0-18.0 [facility] Comment on above: Performed By: #### T NS, PRBC #### [facility] [address] [place] [address] Dr. Beniot To TYPE AND SCREENon 07-24-2022 TYPE AND SCREEN Negative Normal [facility] Comment on above: Performed By: #### T NS, PRBC #### [facility] [address] [place], [place] [address] Dr. Benito To CBC W Auto Differential pane l (Bld)on 07-23-2022 Anisocytosis Ql (Bld) Present Normal [facility] Comment on above: Order Comment: Speci men Type: BLOOD SPECIMENOrdering Facility: [facility] Address: [address] [place] [address] Performed By: #### 5 7021-8 ####[facility] LABCLIA [id number] [address] LABCLIA [id number] [place] [address] Basophils (Bld) [#/Vol] 0.12 10*3/uL High <0.11 [facility] Comment on above: Order Comment: Speci men Type: BLOOD SPECIMENOrdering Facility: [facility] Address: [address] [place] [address] Performed By: #### 5 7021-8 ####[facility] LABCLIA [id number] [address] LABCLIA [id number] [place] [id number] Basophils/100 WBC (Bld) 6.0 % Normal [facility] Comment on above: Order Comment: Speci men Type: BLOOD SPECIMENOrdering Facility: [facility] Address: [address] [place] [address] Performed By: #### 5 7021-8 ####[facility] LABCLIA [id number] [address] LABCLIA [id number] [place] [id number] Differential cell count method Nom (Bld) Manual Normal [facility] Comment on above: Order Comment: Speci men Type: BLOOD SPECIMENOrdering Facility: [facility] Address: [address] [place] [address] Performed By: #### 5 7021-8 ####[facility] LABCLIA [id number] [address] LABCLIA [id number] [place] [address] Eosinophils (Bld) [#/Vol] 0.02 10*3/uL Normal <0.46 [facility] Comment on above: Order Comment: Speci men Type: BLOOD SPECIMENOrdering Facility: [facility] Address: [address] Performed By: #### 5 7021-8 ####[facility] LABCLIA [id number] [address] LABCLIA [id number] [place] [address] Eosinophils/100 WBC (Bld) 1.0 % Normal [facility] Comment on above: Order Comment: Speci men Type: BLOOD SPECIMENOrdering Facility: [facility] Address: [address] Performed By: #### 5 7021-8 ####[facility] LABCLIA [id number] [address] LABCLIA [id number] [place] [address] Erythrocyte distribution width (RBC) [Ratio] 16.6 % High 11.5-15.0 [facility] Comment on above: Order Comment: Speci men Type: BLOOD SPECIMENOrdering Facility: [facility] Address: [address] [place] [address] Performed By: #### 5 7021-8 ####[facility] LABCLIA [id number] [address] LABCLIA [id number] [place] [phone] Giant platelets LM Ql (Bld) Present Normal [facility] Comment on above: Order Comment: Speci men Type: BLOOD SPECIMENOrdering Facility: [facility] Address: [address] [place] [address] Performed By: #### 5 7021-8 ####[facility] LABIA [id number] [address] LABIA [id number] [place] [id number] Hematocrit (Bld) [Volume fraction] 23.4 % Low 39.0-51.0 [facility] Comment on above: Order Comment: Speci men Type: BLOOD SPECIMENOrdering Facility: [facility] Address: [address] [place] [address] Performed By: #### 5 7021-8 ####[facility] LABCLIA [id number] [address] LABCLIA [id number] [place] [id number] Hemoglobin (Bld) [Mass/Vol] 7.2 g/dL Low 13.0-17.0 [facility] Comment on above: Order Comment: Speci men Type: BLOOD SPECIMENOrdering Facility: [facility] Address: [address] [place] [address] Performed By: #### 5 7021-8 ####[facility] LABCLIA [id number] [address] LABIA [id number] [place] [id number] Lymphocytes (Bld) [#/Vol] 0.88 10*3/uL Low 1.00-4.00 [facility] Comment on above: Order Comment: Speci men Type: BLOOD SPECIMENOrdering Facility: [facility] Address: [address] [place] [address] Performed By: #### 5 7021-8 ####[facility] LABCLIA [id number] [address] LABCLIA [id number] [place] [address] Lymphocytes/100 WBC (Bld) 44.0 % Normal [facility] Comment on above: Order Comment: Speci men Type: BLOOD SPECIMENOrdering Facility: [facility] Address: [address] [place] [address] Performed By: #### 5 7021-8 ####[facility] LABCLIA [id number] [address] LABCLIA [id number] [place] [address] MCH (RBC) [Entitic mass] 30.3 pg Normal 26.0-34.0 [facility] Comment on above: Order Comment: Speci men Type: BLOOD SPECIMENOrdering Facility: [facility] Address: [address] [place], [place] [address] Performed By: #### 5 7021-8 ####[facility] LABCLIA [id number] [address] LABCLIA [id number] [place] [address] MCHC (RBC) [Mass/Vol] 30.8 g/dL Normal 30.5-36.0 [facility] Comment on above: Order Comment: Speci men Type: BLOOD SPECIMENOrdering Facility: [facility] Address: [address] [place] [address] Performed By: #### 5 7021-8 ####[facility] LABCLIA [id number] [address] LABCLIA [id number] [place] [address] MCV (RBC) [Entitic vol] 98.3 fL Normal 80.0-100.0 [facility] Comment on above: Order Comment: Speci men Type: BLOOD SPECIMENOrdering Facility: [facility] Address: [address] [place] [address] Performed By: #### 5 7021-8 ####[facility] LABCLIA [id number] [address] LABCLIA [id number] [place] [address] Metamyelocytes/100 WBC (Bld) 1.0 % Normal [facility] Comment on above: Order Comment: Speci men Type: BLOOD SPECIMENOrdering Facility: [facility] Address: [address] [place] [address] Performed By: #### 5 7021-8 ####[facility] LABCLIA [id number] [address] LABCLIA [id number] [place] [address] Monocytes (Bld) [#/Vol] 0.24 10*3/uL Normal <0.87 [facility] Comment on above: Order Comment: Speci men Type: BLOOD SPECIMENOrdering Facility: [facility] Address: [address] [place], [place] [address] Performed By: #### 5 7021-8 ####[facility] LABCLIA [id number] [address] LABCLIA [id number] [place] [address] Monocytes/100 WBC (Bld) 12.0 % Normal [facility] Comment on above: Order Comment: Speci men Type: BLOOD SPECIMENOrdering Facility: [facility] Address: [address] [place] [address] Performed By: #### 5 7021-8 ####[facility] LABCLIA [id number] [address] LABCLIA [id number] [place] [address] Neutrophils (Bld) [#/Vol] 0.72 10*3/uL Low 1.45-7.50 [facility] Comment on above: Order Comment: Speci men Type: BLOOD SPECIMENOrdering Facility: [facility] Address: [address] [place] [address] Performed By: #### 5 7021-8 ####[facility] LABCLIA [id number] [address] LABCLIA [id number] [place] [address] Neutrophils/100 WBC (Bld) 36.0 % Normal [facility] Comment on above: Order Comment: Speci men Type: BLOOD SPECIMENOrdering Facility: [facility] Address: [address] [place] [address] Performed By: #### 5 7021-8 ####[facility] LABCLIA [id number] [address] LABCLIA [id number] [place] [address] Nucleated RBC (Bld) [#/Vol] 10*3/uL Normal <0.01 [facility] Comment on above: Order Comment: Speci men Type: BLOOD SPECIMENOrdering Facility: [facility] Address: [address] [place] [address] Result Comment: This result was previously suppressed from the chart. Performed By: #### 5 7021-8 ####[facility] LABCLIA [id number] [address] LABCLIA [id number] [place] [address] Nucleated RBC/100 WBC (Bld) [Ratio] 0.0 /100 WBC Normal [facility] Comment on above: Order Comment: Speci men Type: BLOOD SPECIMENOrdering Facility: [facility] Address: [address] [place] [address] Performed By: #### 5 7021-8 ####[facility] LABCLIA [id number] [address] LABCLIA [id number] [place] [address] Ovalocytes LM Ql (Bld) Few Normal [facility] Comment on above: Order Comment: Speci men Type: BLOOD SPECIMENOrdering Facility: [facility] Address: [address] [place] [address] Performed By: #### 5 7021-8 ####[facility] LABCLIA [id number] [address] LABCLIA [id number] [place] [address] Platelet mean volume (Bld) [Entitic vol] Normal [facility] Comment on above: Order Comment: Speci men Type: BLOOD SPECIMENOrdering Facility: [facility] Address: [address] [place] [address] Result Comment: Unab le to report Performed By: #### 5 7021-8 ####[facility] LABCLIA [id number] [address] LABCLIA [id number] [place] [address] Platelets (Bld) [#/Vol] 83 10*3/uL Low 150-400 [facility] Comment on above: Order Comment: Speci men Type: BLOOD SPECIMENOrdering Facility: [facility] Address: [address] [place] [address] Performed By: #### 5 7021-8 ####[facility] LABCLIA [id number] [address] LABCLIA [id number] [place] [address] Platelets Estimate (Bld) [#/Vol] Decreased Normal [facility] Comment on above: Order Comment: Speci men Type: BLOOD SPECIMENOrdering Facility: [facility] Address: [address] [place] [address] Performed By: #### 5 7021-8 ####[facility] LABCLIA [id number] [address] LABCLIA [id number] [place] [address] RBC (Bld) [#/Vol] 2.38 10*6/uL Low 4.20-6.00 [facility] Comment on above: Order Comment: Speci men Type: BLOOD SPECIMENOrdering Facility: [facility] Address: [address] [place] [address] Performed By: #### 5 7021-8 ####[facility] LABCLIA [id number] [address] LABCLIA [id number] [place] [address] RED CELL MORPH Reviewed: see result s of individual morphologies Normal [facility] Comment on above: Order Comment: Speci men Type: BLOOD SPECIMENOrdering Facility: [facility] Address: [address] [place], [place] [address] Performed By: #### 5 7021-8 ####[facility] LABCLIA [id number] [address] LABCLIA [id number] [place] [address] WBC (Bld) [#/Vol] 1.99 10*3/uL Low 3.70-11.00 [facility] Comment on above: Order Comment: Speci men Type: BLOOD SPECIMENOrdering Facility: [facility] Address: [address] [place] [address] Result Comment: Resu lts checked and verified.No clot detected. Performed By: #### 5 7021-8 ####[facility] LABCLIA [id number] [address] LABCLIA [id number] [place] [address] WBC Left Shift Ql (Bld) Present Normal [facility] Comment on above: Order Comment: Speci men Type: BLOOD SPECIMENOrdering Facility: [facility] Address: [address] [place] [address] Performed By: #### 5 7021-8 ####[facility] LABCLIA [id number] [address] LABCLIA [id number] [place] [address] CNOVSPon 07-23-2022 CNOVSP Normal [facility] CNPNon 07-23-2022 CNPN Normal [facility] Comprehensive metabolic 2000 panelon 07-23-2022 Albumin [Mass/Vol] 3.8 g/dL Low 3.9-4.9 [facility] Comment on above: Order Comment: Speci men Type: BLOOD SPECIMENOrdering Facility: [facility] Address: [address] [place] [address] Performed By: #### 2 4323-8 ####[facility] LABCLIA [id number] [place] [address] ALP [Catalytic activity/Vol] 117 U/L High 38-113 [facility] Comment on above: Order Comment: Speci men Type: BLOOD SPECIMENOrdering Facility: [facility] Address: [address] [place] [address] Performed By: #### 2 4323-8 ####[facility] LABCLIA [id number] [place] [address] ALT [Catalytic activity/Vol] 36 U/L Normal 10-54 [facility] Comment on above: Order Comment: Speci men Type: BLOOD SPECIMENOrdering Facility: [facility] Address: [address] [place] [address] Performed By: #### 2 4323-8 ####[facility] LABCLIA [id number] [place] [address] Anion gap [Moles/Vol] 9 mmol/L Normal 9-18 [facility] Comment on above: Order Comment: Speci men Type: BLOOD SPECIMENOrdering Facility: [facility] Address: [address] [place] [address] Performed By: #### 2 4323-8 ####[facility] LABCLIA [id number] [place] [address] AST [Catalytic activity/Vol] 16 U/L Normal 14-40 [facility] Comment on above: Order Comment: Speci men Type: BLOOD SPECIMENOrdering Facility: [facility] Address: [address] [place] [address] Performed By: #### 2 4323-8 ####[facility] LABCLIA [id number] [place] [address] Bilirubin [Mass/Vol] 1.1 mg/dL Normal 0.2-1.3 [facility] Comment on above: Order Comment: Speci men Type: BLOOD SPECIMENOrdering Facility: [facility] Address: [address] [place] [address] Performed By: #### 2 4323-8 ####[facility] LABCLIA [id number] [place] [address] Calcium [Mass/Vol] 8.9 mg/dL Normal 8.5-10.2 [facility] Comment on above: Order Comment: Speci men Type: BLOOD SPECIMENOrdering Facility: [facility] Address: [address] [place] [address] Performed By: #### 2 4323-8 ####[facility] LABCLIA [id number] [place] [address] Chloride [Moles/Vol] 100 mmol/L Normal 97-105 [facility] Comment on above: Order Comment: Speci men Type: BLOOD SPECIMENOrdering Facility: [facility] Address: [address] [place] [address] Performed By: #### 2 4323-8 ####[facility] LABCLIA [id number] [place] [address] CO2 [Moles/Vol] 32 mmol/L High 22-30 [facility] Comment on above: Order Comment: Speci men Type: BLOOD SPECIMENOrdering Facility: [facility] Address: [address] [place] [address] Performed By: #### 2 4323-8 ####[facility] LABCLIA [id number] [place] [address] Creatinine [Mass/Vol] 1.68 mg/dL High 0.73-1.22 [facility] Comment on above: Order Comment: Speci men Type: BLOOD SPECIMENOrdering Facility: [facility] Address: [address] [place] [address] Performed By: #### 2 4323-8 ####[facility] LABCLIA [id number] [place] [address] ESTIMATED GLOMERULAR FILTRATION RATE 40 mL/min/1.73m??? Low >=60 [facility] Comment on above: Order Comment: Speci men Type: BLOOD SPECIMENOrdering Facility: [facility] Address: [address] [place] [address] Result Comment: Faye mated Glomerular Filtration Rate [...] actual GFR. Performed By: #### 2 4323-8 ####[facility] LABCLIA [id number] [place] [address] Glucose [Mass/Vol] 143 mg/dL High 74-99 [facility] Comment on above: Order Comment: Davi avendaño Type: BLOOD SPECIMENOrdering Facility: [facility] Address: [address] [place] [id number] Result Comment: The [place] [employer] (ADA) provides guidance for cutoff [...] Standards of Medical Care in Diabetes 2016, [place] [employer]. Diabetes Care. 2016.39(Suppl 1). Performed By: #### 2 4323-8 ####[facility] LABCLIA [id number] [place] [address] Potassium [Moles/Vol] 4.3 mmol/L Normal 3.7-5.1 [facility] Comment on above: Order Comment: Davi avendaño Type: BLOOD SPECIMENOrdering Facility: [facility] Address: [address] [place] [id number] Performed By: #### 2 4323-8 ####[facility] LABCLIA [id number] [place] [address] Protein [Mass/Vol] 6.1 g/dL Low 6.3-8.0 [facility] Comment on above: Order Comment: Davi avendaño Type: BLOOD SPECIMENOrdering Facility: [facility] Address: [address] [place] [id number] Performed By: #### 2 4323-8 ####[facility] LABCLIA [id number] [place] [address] Sodium [Moles/Vol] 141 mmol/L Normal 136-144 [facility] Comment on above: Order Comment: Speci men Type: BLOOD SPECIMENOrdering Facility: [facility] Address: [address] [place] [address] Performed By: #### 2 4323-8 ####[facility] LABCLIA [id number] [place] [address] Urea nitrogen [Mass/Vol] 30 mg/dL High 9-24 [facility] Comment on above: Order Comment: Speci men Type: BLOOD SPECIMENOrdering Facility: [facility] Address: [address] [place] [address] Performed By: #### 2 4323-8 ####[facility] LABCLIA [id number] [place] [address] CNPNon 07-18-2022 CNPN Normal [facility] CNOVSPon 07-16-2022 CNOVSP Normal [facility] CNPNon 07-16-2022 CNPN Normal [facility] HEMOGLOBIN AND HEMATOCRITon 07-16-2022 Hematocrit (Bld) [Volume fraction] 24.9 % Critically low 42.0-54.0 [facility] Comment on above: Performed By: #### H H #### [facility] [address] [place] [address] Dr. Benito To Hemoglobin (Bld) [Mass/Vol] 7.8 g/dL Critically low 14.0-18.0 [facility] Comment on above: Performed By: #### H H #### [facility] [address] [place] [address] [address] Benito To TYPE AND SCREENon 07-16-2022 TYPE AND SCREEN Negative Normal [facility] Comment on above: Performed By: #### H GBHCT #### [facility] [address] [place] [address] [address] Benito To CBC W Auto Differential pane l (Bld)on 07-15-2022 Anisocytosis Ql (Bld) Present Normal [facility] Comment on above: Order Comment: Speci men Type: BLOOD SPECIMENOrdering Facility: [facility] Address: [address] [place] [address] Performed By: #### 5 7021-8 ####[facility] LABCLIA [id number] [address] LABCLIA [id number] [place] [address] Basophils (Bld) [#/Vol] 0.08 10*3/uL Normal <0.11 [facility] Comment on above: Order Comment: Speci men Type: BLOOD SPECIMENOrdering Facility: [facility] Address: [address] [place] [address] Performed By: #### 5 7021-8 ####[facility] LABCLIA [id number] [address] LABCLIA [id number] [place] [id number] Basophils/100 WBC (Bld) 5.0 % Normal [facility] Comment on above: Order Comment: Speci men Type: BLOOD SPECIMENOrdering Facility: [facility] Address: [address] [place], [place] [address] Performed By: #### 5 7021-8 ####[facility] LABCLIA [id number] [address] LABCLIA [id number] [place] [id number] Differential cell count method Nom (Bld) Manual Normal [facility] Comment on above: Order Comment: Speci men Type: BLOOD SPECIMENOrdering Facility: [facility] Address: [address] [place], [place] [address] Performed By: #### 5 7021-8 ####[facility] LABCLIA [id number] [address] LABCLIA [id number] [place] [address] Eosinophils (Bld) [#/Vol] 0.02 10*3/uL Normal <0.46 [facility] Comment on above: Order Comment: Speci men Type: BLOOD SPECIMENOrdering Facility: [facility] Address: [address] [place] [address] Performed By: #### 5 7021-8 ####[facility] LABCLIA [id number] [address] LABCLIA [id number] [place] [address] Eosinophils/100 WBC (Bld) 1.0 % Normal [facility] Comment on above: Order Comment: Speci men Type: BLOOD SPECIMENOrdering Facility: [facility] Address: [address] [place] [address] Performed By: #### 5 7021-8 ####[facility] LABCLIA [id number] [address] LABCLIA [id number] [place] [address] Erythrocyte distribution width (RBC) [Ratio] 16.9 % High 11.5-15.0 [facility] Comment on above: Order Comment: Speci men Type: BLOOD SPECIMENOrdering Facility: [facility] Address: [address] [place] [address] Performed By: #### 5 7021-8 ####[facility] LABCLIA [id number] [address] LABCLIA [id number] [place] [address] Giant platelets LM Ql (Bld) Occasional Normal [facility] Comment on above: Order Comment: Speci men Type: BLOOD SPECIMENOrdering Facility: [facility] Address: [address] [place] [address] Performed By: #### 5 7021-8 ####[facility] LABCLIA [id number] [address] LABCLIA [id number] [place] [address] Hematocrit (Bld) [Volume fraction] 25.1 % Low 39.0-51.0 [facility] Comment on above: Order Comment: Speci men Type: BLOOD SPECIMENOrdering Facility: [facility] Address: [address] [place] [address] Performed By: #### 5 7021-8 ####[facility] LABCLIA [id number] [address] LABCLIA [id number] [place] [address] Hemoglobin (Bld) [Mass/Vol] 7.9 g/dL Low 13.0-17.0 [facility] Comment on above: Order Comment: Speci men Type: BLOOD SPECIMENOrdering Facility: [facility] Address: [address] [place] [address] Performed By: #### 5 7021-8 ####[facility] LABCLIA [id number] [address] LABCLIA [id number] [place] [address] Lymphocytes (Bld) [#/Vol] 0.66 10*3/uL Low 1.00-4.00 [facility] Comment on above: Order Comment: Speci men Type: BLOOD SPECIMENOrdering Facility: [facility] Address: [address] [place] [address] Performed By: #### 5 7021-8 ####[facility] LABCLIA [id number] [address] LABCLIA [id number] [place] [address] Lymphocytes/100 WBC (Bld) 40.0 % Normal [facility] Comment on above: Order Comment: Speci men Type: BLOOD SPECIMENOrdering Facility: [facility] Address: [address] [place] [address] Performed By: #### 5 7021-8 ####[facility] LABCLIA [id number] [address] LABCLIA [id number] [place] [address] MCH (RBC) [Entitic mass] 30.9 pg Normal 26.0-34.0 [facility] Comment on above: Order Comment: Speci men Type: BLOOD SPECIMENOrdering Facility: [facility] Address: [address] [place] [address] Performed By: #### 5 7021-8 ####[facility] LABCLIA [id number] [address] LABCLIA [id number] [place] [address] MCHC (RBC) [Mass/Vol] 31.5 g/dL Normal 30.5-36.0 [facility] Comment on above: Order Comment: Speci men Type: BLOOD SPECIMENOrdering Facility: [facility] Address: [address] [place] [address] Performed By: #### 5 7021-8 ####[facility] LABCLIA [id number] [address] LABCLIA [id number] [place] [address] MCV (RBC) [Entitic vol] 98.0 fL Normal 80.0-100.0 [facility] Comment on above: Order Comment: Speci men Type: BLOOD SPECIMENOrdering Facility: [facility] Address: [address] [place] [address] Performed By: #### 5 7021-8 ####[facility] LABCLIA [id number] [address] LABCLIA [id number] [place] [address] Monocytes (Bld) [#/Vol] 0.17 10*3/uL Normal <0.87 [facility] Comment on above: Order Comment: Speci men Type: BLOOD SPECIMENOrdering Facility: [facility] Address: [address] [place] [address] Performed By: #### 5 7021-8 ####[facility] LABCLIA [id number] [address] LABCLIA [id number] [place] [address] Monocytes/100 WBC (Bld) 10.0 % Normal [facility] Comment on above: Order Comment: Speci men Type: BLOOD SPECIMENOrdering Facility: [facility] Address: [address] [place] [address] Performed By: #### 5 7021-8 ####[facility] LABCLIA [id number] [address] LABCLIA [id number] [place] [address] Neutrophils (Bld) [#/Vol] 0.73 10*3/uL Low 1.45-7.50 [facility] Comment on above: Order Comment: Speci men Type: BLOOD SPECIMENOrdering Facility: [facility] Address: [address] [place] [address] Performed By: #### 5 7021-8 ####[facility] LABCLIA [id number] [address] LABCLIA [id number] [place] [address] Neutrophils/100 WBC (Bld) 44.0 % Normal [facility] Comment on above: Order Comment: Speci men Type: BLOOD SPECIMENOrdering Facility: [facility] Address: [address] [place] [address] Performed By: #### 5 7021-8 ####[facility] LABCLIA [id number] [address] LABCLIA [id number] [place] [address] Nucleated RBC (Bld) [#/Vol] 10*3/uL Normal <0.01 [facility] Comment on above: Order Comment: Speci men Type: BLOOD SPECIMENOrdering Facility: [facility] Address: [address] [place] [address] Result Comment: This result was previously suppressed from the chart. Performed By: #### 5 7021-8 ####[facility] LABCLIA [id number] [address] LABCLIA [id number] [place], [place] [address] Nucleated RBC/100 WBC (Bld) [Ratio] 0.0 /100 WBC Normal [facility] Comment on above: Order Comment: Speci men Type: BLOOD SPECIMENOrdering Facility: [facility] Address: [address] [place] [address] Performed By: #### 5 7021-8 ####[facility] LABCLIA [id number] [address] LABCLIA [id number] [place] [address] Ovalocytes LM Ql (Bld) Few Normal [facility] Comment on above: Order Comment: Speci men Type: BLOOD SPECIMENOrdering Facility: [facility] Address: [address] [place] [address] Performed By: #### 5 7021-8 ####[facility] LABCLIA [id number] [address] LABCLIA [id number] [place] [address] Platelet mean volume (Bld) [Entitic vol] Normal [facility] Comment on above: Order Comment: Speci men Type: BLOOD SPECIMENOrdering Facility: [facility] Address: [address] [place] [address] Result Comment: Unab le to Report. Performed By: #### 5 7021-8 ####[facility] LABCLIA [id number] [address] LABCLIA [id number] [place] [address] Platelets (Bld) [#/Vol] 65 10*3/uL Low 150-400 [facility] Comment on above: Order Comment: Speci men Type: BLOOD SPECIMENOrdering Facility: [facility] Address: [address] [place] [address] Performed By: #### 5 7021-8 ####[facility] LABCLIA [id number] [address] LABCLIA [id number] [place] [address] Platelets Estimate (Bld) [#/Vol] Decreased Normal [facility] Comment on above: Order Comment: Speci men Type: BLOOD SPECIMENOrdering Facility: [facility] Address: [address] [place] [address] Performed By: #### 5 7021-8 ####[facility] LABCLIA [id number] [id number] [place] [address] LABCLIA [id number] [place] [address] RBC (Bld) [#/Vol] 2.56 10*6/uL Low 4.20-6.00 [facility] Comment on above: Order Comment: Speci men Type: BLOOD SPECIMENOrdering Facility: [facility] Address: [address] [place] [address] Performed By: #### 5 7021-8 ####[facility] LABCLIA [id number] [address] LABCLIA [id number] [place] [address] RED CELL MORPH Reviewed: see result s of individual morphologies Normal [facility] Comment on above: Order Comment: Speci men Type: BLOOD SPECIMENOrdering Facility: [facility] Address: [address] [place] [address] Performed By: #### 5 7021-8 ####[facility] LABCLIA [id number] [address] LABCLIA [id number] [place] [address] WBC (Bld) [#/Vol] 1.65 10*3/uL Low 3.70-11.00 [facility] Comment on above: Order Comment: Speci men Type: BLOOD SPECIMENOrdering Facility: [facility] Address: [address] [place] [address] Performed By: #### 5 7021-8 ####[facility] LABCLIA [id number] [address] LABCLIA [id number] [place] [address] CNOVSPon 07-15-2022 CNOVSP Normal [facility] CNPNon 07-15-2022 CNPN Normal [facility] Comprehensive metabolic 2000 panelon 07-15-2022 Albumin [Mass/Vol] 3.8 g/dL Low 3.9-4.9 [facility] Comment on above: Order Comment: Speci men Type: BLOOD SPECIMENOrdering Facility: [facility] Address: [address] [place] [address] Performed By: #### 2 4323-8, 2531-0 ####[facility] LABCLIA [id number] [place] [address] ALP [Catalytic activity/Vol] 114 U/L High 38-113 [facility] Comment on above: Order Comment: Speci men Type: BLOOD SPECIMENOrdering Facility: [facility] Address: [address] [place] [address] Performed By: #### 2 4323-8, 2531-0 ####[facility] LABCLIA [id number] [place] [address] ALT [Catalytic activity/Vol] 39 U/L Normal 10-54 [facility] Comment on above: Order Comment: Speci men Type: BLOOD SPECIMENOrdering Facility: [facility] Address: [address] [place] [address] Performed By: #### 2 4323-8, 2531-0 ####[facility] LABCLIA [id number] [place] [address] Anion gap [Moles/Vol] 10 mmol/L Normal 9-18 [facility] Comment on above: Order Comment: Speci men Type: BLOOD SPECIMENOrdering Facility: [facility] Address: [address] [place] [address] Performed By: #### 2 4323-8, 2531-0 ####[facility] LABCLIA [id number] [place] [address] AST [Catalytic activity/Vol] 18 U/L Normal 14-40 [facility] Comment on above: Order Comment: Speci men Type: BLOOD SPECIMENOrdering Facility: [facility] Address: [address] Performed By: #### 2 4328, 2531-0 ####[facility] LABCLIA [id number] [place] [address] Bilirubin [Mass/Vol] 0.9 mg/dL Normal 0.2-1.3 [facility] Comment on above: Order Comment: Speci men Type: BLOOD SPECIMENOrdering Facility: [facility] Address: [address] [address] Performed By: #### 2 4328, 2531-0 ####[facility] LABCLIA [id number] [place] [address] Calcium [Mass/Vol] 9.0 mg/dL Normal 8.5-10.2 [facility] Comment on above: Order Comment: Speci men Type: BLOOD SPECIMENOrdering Facility: [facility] Address: [address] [address] Performed By: #### 2 4328, 2531-0 ####[facility] LABCLIA [id number] [place] [address] Chloride [Moles/Vol] 104 mmol/L Normal 97-105 [facility] Comment on above: Order Comment: Speci men Type: BLOOD SPECIMENOrdering Facility: [facility] Address: [address] [address] Performed By: #### 2 4328, 2531-0 ####[facility] LABCLIA [id number] [place] [address] CO2 [Moles/Vol] 32 mmol/L High 22-30 [facility] Comment on above: Order Comment: Speci men Type: BLOOD SPECIMENOrdering Facility: [facility] Address: [address] [place] [address] Performed By: #### 2 4328, 2531-0 ####[facility] LABCLIA [id number] [place] [address] Creatinine [Mass/Vol] 1.56 mg/dL High 0.73-1.22 [facility] Comment on above: Order Comment: Davi avendaño Type: BLOOD SPECIMENOrdering Facility: [facility] Address: [address] [place], [place] [address] Performed By: #### 2 4323-8, 2531-0 ####[facility] LABCLIA [id number] [place] [address] ESTIMATED GLOMERULAR FILTRATION RATE 44 mL/min/1.73m??? Low >=60 [facility] Comment on above: Order Comment: Davi avendaño Type: BLOOD SPECIMENOrdering Facility: [facility] Address: [address] [place] [address] Result Comment: Faye mated Glomerular Filtration Rate [...] GFR. Performed By: #### 2 4323-8, 0 ####[facility] LABCLIA [id number] [place] [address] Glucose [Mass/Vol] 147 mg/dL High 74-99 [facility] Comment on above: Order Comment: Davi avendaño Type: BLOOD SPECIMENOrdering Facility: [facility] Address: [address] [place], [place] [address] Result Comment: The [place] [employer] (ADA) provides guidance for cutoff [...] Standards of Medical Care in Diabetes 2016, [place] [employer]. Diabetes Care. 2016.39(Suppl 1). Performed By: #### 2 4323-8, 0 ####[facility] LABCLIA [id number] [place] [address] Potassium [Moles/Vol] 4.1 mmol/L Normal 3.7-5.1 [facility] Comment on above: Order Comment: Speci men Type: BLOOD SPECIMENOrdering Facility: [facility] Address: [address] [address] Performed By: #### 2 4328, ####[facility] LABIA [id number] [place] [address] Protein [Mass/Vol] 6.3 g/dL Normal 6.3-8.0 [facility] Comment on above: Order Comment: Speci men Type: BLOOD SPECIMENOrdering Facility: [facility] Address: [address] [address] Performed By: #### 2 4328, ####[facility] LABIA [id number] [place] [address] Sodium [Moles/Vol] 146 mmol/L High 136-144 [facility] Comment on above: Order Comment: Speci men Type: BLOOD SPECIMENOrdering Facility: [facility] Address: [address] Performed By: #### 2 43238, 0 ####[facility] LABIA [id number] [place] [address] Urea nitrogen [Mass/Vol] 24 mg/dL Normal 9-24 [facility] Comment on above: Order Comment: Speci men Type: BLOOD SPECIMENOrdering Facility: [facility] Address: [address] Performed By: #### 2 432-8, 2532-0 ####[facility] LABCLIA [id number] [place] [address] LDH SerPl-cCncon 07-15-2022 LDH [Catalytic activity/Vol] 203 U/L Normal 135-225 [facility] Comment on above: Order Comment: Speci men Type: BLOOD SPECIMENOrdering Facility: [facility] Address: [address] [address] Result Comment: Hemo lysis present. The origin [...] indicated. Performed By: #### 2 4323-8, 2532-0 ####[facility] LABCLIA [id number] [place] [address] CNPNon 07-11-2022 CNPN Normal [facility] TYPE AND SCREENon 07-09-2022 TYPE AND SCREEN Negative Normal [facility] Comment on above: Performed By: #### P RBC, TNS #### [facility] [address] [place] [address] Benito To CBC W Auto Differential pane l (Bld)on 07-08-2022 Anisocytosis Ql (Bld) Present Normal [facility] Comment on above: Order Comment: Speci men Type: BLOOD SPECIMENOrdering Facility: [facility] Address: [address] [address] Performed By: #### 5 7021-8 ####[facility] LABCLIA [id number] [facility] [id number] LABCLIA [id number] [place] [address] Basophils (Bld) [#/Vol] 0.10 10*3/uL Normal <0.11 [facility] Comment on above: Order Comment: Speci men Type: BLOOD SPECIMENOrdering Facility: [facility] Address: [address] [place] [address] Performed By: #### 5 7021-8 ####[facility] LABCLIA [id number] [address] LABCLIA [id number] [place] [address] Basophils/100 WBC (Bld) 6.0 % Normal [facility] Comment on above: Order Comment: Speci men Type: BLOOD SPECIMENOrdering Facility: [facility] Address: [address] [place] [address] Performed By: #### 5 7021-8 ####[facility] LABCLIA [id number] [address] LABCLIA [id number] [place] [id number] Differential cell count method Nom (Bld) Manual Normal [facility] Comment on above: Order Comment: Speci men Type: BLOOD SPECIMENOrdering Facility: [facility] Address: [address] [place] [address] Performed By: #### 5 7021-8 ####[facility] LABCLIA [id number] [address] LABCLIA [id number] [place] [address] Eosinophils (Bld) [#/Vol] 0.05 10*3/uL Normal <0.46 [facility] Comment on above: Order Comment: Speci men Type: BLOOD SPECIMENOrdering Facility: [facility] Address: [address] [place] [address] Performed By: #### 5 7021-8 ####[facility] LABCLIA [id number] [address] LABCLIA [id number] [place] [address] Eosinophils/100 WBC (Bld) 3.0 % Normal [facility] Comment on above: Order Comment: Speci men Type: BLOOD SPECIMENOrdering Facility: [facility] Address: [address] [place] [address] Performed By: #### 5 7021-8 ####[facility] LABCLIA [id number] [address] LABCLIA [id number] [place] [address] Erythrocyte distribution width (RBC) [Ratio] 18.2 % High 11.5-15.0 [facility] Comment on above: Order Comment: Speci men Type: BLOOD SPECIMENOrdering Facility: [facility] Address: [address] [place] [address] Performed By: #### 5 7021-8 ####[facility] LABCLIA [id number] [address] LABCLIA [id number] [place] [address] Hematocrit (Bld) [Volume fraction] 23.2 % Low 39.0-51.0 [facility] Comment on above: Order Comment: Speci men Type: BLOOD SPECIMENOrdering Facility: [facility] Address: [address] [place] [address] Performed By: #### 5 7021-8 ####[facility] LABCLIA [id number] [address] LABIA [id number] [place] [address] Hemoglobin (Bld) [Mass/Vol] 7.4 g/dL Low 13.0-17.0 [facility] Comment on above: Order Comment: Speci men Type: BLOOD SPECIMENOrdering Facility: [facility] Address: [address] Performed By: #### 5 7021-8 ####[facility] LABCLIA [id number] [address] LABCLIA [id number] [place] [address] Lymphocytes (Bld) [#/Vol] 0.69 10*3/uL Low 1.00-4.00 [facility] Comment on above: Order Comment: Speci men Type: BLOOD SPECIMENOrdering Facility: [facility] Address: [address] [place] [address] Performed By: #### 5 7021-8 ####[facility] LABCLIA [id number] [address] LABCLIA [id number] [place] [address] Lymphocytes/100 WBC (Bld) 42.0 % Normal [facility] Comment on above: Order Comment: Speci men Type: BLOOD SPECIMENOrdering Facility: [facility] Address: [address] [place], [place] [address] Performed By: #### 5 7021-8 ####[facility] LABCLIA [id number] [address] LABCLIA [id number] [place] [address] MCH (RBC) [Entitic mass] 31.8 pg Normal 26.0-34.0 [facility] Comment on above: Order Comment: Speci men Type: BLOOD SPECIMENOrdering Facility: [facility] Address: [address] [place], [place] [address] Performed By: #### 5 7021-8 ####[facility] LABCLIA [id number] [address] LABCLIA [id number] [place] [address] MCHC (RBC) [Mass/Vol] 31.9 g/dL Normal 30.5-36.0 [facility] Comment on above: Order Comment: Speci men Type: BLOOD SPECIMENOrdering Facility: [facility] Address: [address] [place] [address] Performed By: #### 5 7021-8 ####[facility] LABCLIA [id number] [address] LABCLIA [id number] [place] [address] MCV (RBC) [Entitic vol] 99.6 fL Normal 80.0-100.0 [facility] Comment on above: Order Comment: Speci men Type: BLOOD SPECIMENOrdering Facility: [facility] Address: [address] [place] [address] Performed By: #### 5 7021-8 ####[facility] LABCLIA [id number] [address] LABCLIA [id number] [place] [id number] Monocytes (Bld) [#/Vol] 0.15 10*3/uL Normal <0.87 [facility] Comment on above: Order Comment: Speci men Type: BLOOD SPECIMENOrdering Facility: [facility] Address: [address] [place], [place] [address] Performed By: #### 5 7021-8 ####[facility] LABCLIA [id number] [address] LABIA [id number] [place] [id number] Monocytes/100 WBC (Bld) 9.0 % Normal [facility] Comment on above: Order Comment: Speci men Type: BLOOD SPECIMENOrdering Facility: [facility] Address: [address] [place] [address] Performed By: #### 5 7021-8 ####[facility] LABCLIA [id number] [address] LABCLIA [id number] [place] [address] Neutrophils (Bld) [#/Vol] 0.66 10*3/uL Low 1.45-7.50 [facility] Comment on above: Order Comment: Speci men Type: BLOOD SPECIMENOrdering Facility: [facility] Address: [address] Performed By: #### 5 7021-8 ####[facility] LABCLIA [id number] [address] LABCLIA [id number] [place] [address] Neutrophils/100 WBC (Bld) 40.0 % Normal [facility] Comment on above: Order Comment: Speci men Type: BLOOD SPECIMENOrdering Facility: [facility] Address: [address] Performed By: #### 5 7021-8 ####[facility] LABCLIA [id number] [address] LABCLIA [id number] [place] [address] Nucleated RBC (Bld) [#/Vol] 10*3/uL Normal <0.01 [facility] Comment on above: Order Comment: Speci men Type: BLOOD SPECIMENOrdering Facility: [facility] Address: [address] Result Comment: This result was previously suppressed from the chart. Performed By: #### 5 7021-8 ####[facility] LABCLIA [id number] [address] LABCLIA [id number] [place] [address] Nucleated RBC/100 WBC (Bld) [Ratio] 0.0 /100 WBC Normal [facility] Comment on above: Order Comment: Speci men Type: BLOOD SPECIMENOrdering Facility: [facility] Address: [address] [place] [address] Performed By: #### 5 7021-8 ####[facility] LABCLIA [id number] [address] LABCLIA [id number] [place] [address] Ovalocytes LM Ql (Bld) Few Normal [facility] Comment on above: Order Comment: Speci men Type: BLOOD SPECIMENOrdering Facility: [facility] Address: [address] [place] [address] Performed By: #### 5 7021-8 ####[facility] LABCLIA [id number] [address] LABCLIA [id number] [place] [address] Platelet mean volume (Bld) [Entitic vol] Normal [facility] Comment on above: Order Comment: Speci men Type: BLOOD SPECIMENOrdering Facility: [facility] Address: [address] [place], [place] [address] Result Comment: Unab le to Report. Performed By: #### 5 7021-8 ####[facility] LABCLIA [id number] [address] LABCLIA [id number] [place] [address] Platelets (Bld) [#/Vol] 65 10*3/uL Low 150-400 [facility] Comment on above: Order Comment: Speci men Type: BLOOD SPECIMENOrdering Facility: [facility] Address: [address] [place] [address] Result Comment: No c lot detected.Results checked and verified. Performed By: #### 5 7021-8 ####[facility] LABCLIA [id number] [address] LABCLIA [id number] [place] [address] Platelets Estimate (Bld) [#/Vol] Decreased Normal [facility] Comment on above: Order Comment: Speci men Type: BLOOD SPECIMENOrdering Facility: [facility] Address: [address] [place] [address] Performed By: #### 5 7021-8 ####[facility] LABCLIA [id number] [address] LABCLIA [id number] [place] [address] RBC (Bld) [#/Vol] 2.33 10*6/uL Low 4.20-6.00 [facility] Comment on above: Order Comment: Speci men Type: BLOOD SPECIMENOrdering Facility: [facility] Address: [address] [place] [address] Performed By: #### 5 7021-8 ####[facility] LABCLIA [id number] [address] LABCLIA [id number] [place] [address] RBC FRAGMENTS Few Abnormal None Seen [facility] Comment on above: Order Comment: Speci men Type: BLOOD SPECIMENOrdering Facility: [facility] Address: [address] [place] [address] Performed By: #### 5 7021-8 ####[facility] LABCLIA [id number] [address] LABCLIA [id number] [place] [address] RED CELL MORPH Reviewed: see result s of individual morphologies Normal [facility] Comment on above: Order Comment: Speci men Type: BLOOD SPECIMENOrdering Facility: [facility] Address: [address] [place] [address] Performed By: #### 5 7021-8 ####[facility] LABCLIA [id number] [address] LABCLIA [id number] [place] [address] WBC (Bld) [#/Vol] 1.64 10*3/uL Low 3.70-11.00 [facility] Comment on above: Order Comment: Speci men Type: BLOOD SPECIMENOrdering Facility: [facility] Address: [address] [place] [address] Result Comment: No c lot detected.Results checked and verified. Performed By: #### 5 7021-8 ####[facility] LABCLIA [id number] [address] LABCLIA [id number] [place] [address] CNOVSPon 07-08-2022 CNOVSP Normal [facility] CNPNon 07-08-2022 CNPN Normal [facility] Comprehensive metabolic 2000 panelon 07-08-2022 Albumin [Mass/Vol] 3.8 g/dL Low 3.9-4.9 [facility] Comment on above: Order Comment: Speci men Type: BLOOD SPECIMENOrdering Facility: [facility] Address: [address] [place] [address] Performed By: #### 2 532-0, 58210-3 ####[facility] LABCLIA [id number] [place] [address] ALP [Catalytic activity/Vol] 117 U/L High 38-113 [facility] Comment on above: Order Comment: Speci men Type: BLOOD SPECIMENOrdering Facility: [facility] Address: [address] [address] Performed By: #### 2 532-0, ####[facility] LABCLIA [id number] [place] [address] ALT [Catalytic activity/Vol] 47 U/L Normal 10-54 [facility] Comment on above: Order Comment: Speci men Type: BLOOD SPECIMENOrdering Facility: [facility] Address: [address] [place] [address] Performed By: #### 2 532-0, ####[facility] LABCLIA [id number] [place] [address] Anion gap [Moles/Vol] 8 mmol/L Low 9-18 [facility] Comment on above: Order Comment: Speci men Type: BLOOD SPECIMENOrdering Facility: [facility] Address: [address] [place] [address] Performed By: #### 2 532-0, ####[facility] LABCLIA [id number] [place] [address] AST [Catalytic activity/Vol] 22 U/L Normal 14-40 [facility] Comment on above: Order Comment: Speci men Type: BLOOD SPECIMENOrdering Facility: [facility] Address: [address] [place] [address] Performed By: #### 2 532-0, ####[facility] LABCLIA [id number] [place] [address] Bilirubin [Mass/Vol] 0.8 mg/dL Normal 0.2-1.3 [facility] Comment on above: Order Comment: Speci men Type: BLOOD SPECIMENOrdering Facility: [facility] Address: [address] [place] [address] Performed By: #### 2 532-0, 67626-8 ####[facility] LABCLIA [id number] [place] [address] Calcium [Mass/Vol] 8.8 mg/dL Normal 8.5-10.2 [facility] Comment on above: Order Comment: Speci men Type: BLOOD SPECIMENOrdering Facility: [facility] Address: [address] [place] [address] Performed By: #### 2 532-0, ####[facility] LABCLIA [id number] [place] [address] Chloride [Moles/Vol] 103 mmol/L Normal 97-105 [facility] Comment on above: Order Comment: Speci men Type: BLOOD SPECIMENOrdering Facility: [facility] Address: [address] [place] [address] Performed By: #### 2 532-0, ####[facility] LABCLIA [id number] [place] [address] CO2 [Moles/Vol] 32 mmol/L High 22-30 [facility] Comment on above: Order Comment: Speci men Type: BLOOD SPECIMENOrdering Facility: [facility] Address: [address] [place] [address] Performed By: #### 2 532-0, ####[facility] LABCLIA [id number] [place] [address] Creatinine [Mass/Vol] 1.55 mg/dL High 0.73-1.22 [facility] Comment on above: Order Comment: Speci men Type: BLOOD SPECIMENOrdering Facility: [facility] Address: [address] [place] [address] Performed By: #### 2 532-0, ####[facility] LABCLIA [id number] [place] [address] ESTIMATED GLOMERULAR FILTRATION RATE 44 mL/min/1.73m??? Low >=60 [facility] Comment on above: Order Comment: Speci men Type: BLOOD SPECIMENOrdering Facility: [facility] Address: [address] [id number] Result Comment: Faye mated Glomerular Filtration Rate [...] actual GFR. Performed By: #### 2 532-0, 16555-0 ####[facility] LABCLIA [id number] [place] [address] Glucose [Mass/Vol] 130 mg/dL High 74-99 [facility] Comment on above: Order Comment: Speci men Type: BLOOD SPECIMENOrdering Facility: [facility] Address: [address] [place] [address] Result Comment: The [place] Diabetes Association (ADA) provides guidance for cutoff [...] Standards of Medical Care in Diabetes 2016, [place] [employer]. Diabetes Care. 2016.39(Suppl 1). Performed By: #### 2 532-0, 49623-2 ####[facility] LABCLIA [id number] [place] [address] Potassium [Moles/Vol] 4.1 mmol/L Normal 3.7-5.1 [facility] Comment on above: Order Comment: Davi avendaño Type: BLOOD SPECIMENOrdering Facility: [facility] Address: [address] [id number] Performed By: #### 2 532-0, 72674-0 ####[facility] LABCLIA [id number] [place] [address] Protein [Mass/Vol] 6.1 g/dL Low 6.3-8.0 [facility] Comment on above: Order Comment: Speci men Type: BLOOD SPECIMENOrdering Facility: [facility] Address: [address] [place] [address] Performed By: #### 2 532-0, 54606-9 ####[facility] LABCLIA [id number] [place] [address] Sodium [Moles/Vol] 143 mmol/L Normal 136-144 [facility] Comment on above: Order Comment: Speci men Type: BLOOD SPECIMENOrdering Facility: [facility] Address: [address] [place] [address] Performed By: #### 2 532-0, 64777-6 ####[facility] LABCLIA [id number] [place] [address] Urea nitrogen [Mass/Vol] 20 mg/dL Normal 9-24 [facility] Comment on above: Order Comment: Speci men Type: BLOOD SPECIMENOrdering Facility: [facility] Address: [address] [place] [address] Performed By: #### 2 532-0, 12934-9 ####[facility] LABCLIA [id number] [place] [address] HEMOGRAM AND PLATELon 2021 Hematocrit (Bld) [Volume fraction] 22.7 % Critically low 42.0-54.0 [facility] Comment on above: Performed By: #### T NS, PRBC #### [facility] [address] [place] [address] Dr. Benito To Hemoglobin (Bld) [Mass/Vol] 7.2 g/dL Critically low 14.0-18.0 [facility] Comment on above: Performed By: #### T NS, PRBC #### [facility] [address] [address] [address] Benito To MCH (RBC) [Entitic mass] 31.3 pg Normal 25.9-34.0 [facility] Comment on above: Performed By: #### T NS, PRBC #### [facility] [address] [place] [address] Dr. Benito To MCHC (RBC) [Mass/Vol] 31.7 g/dL Normal 29.9-35.2 [facility] Comment on above: Performed By: #### T NS, PRBC #### [facility] [address] [address] [address] Benito To MCV (RBC) [Entitic vol] 98.7 fL Critically high 80.0-94.0 [facility] Comment on above: Performed By: #### T NS, PRBC #### [facility] [address] [place] [address] Dr. Benito To PLT 66 103/ul Critically low 150-450 [facility] Comment on above: Performed By: #### T NS, PRBC #### [facility] [address] [place] [address] Dr. Benito To RBC 2.30 106/ul Critically low 4.70-6.10 [facility] Comment on above: Performed By: #### T NS, PRBC #### [facility] [address] [address] [address] Benito To WBC 1.7 103/ul Critically low 4.0-11.0 [facility] Comment on above: Performed By: #### T NS, PRBC #### [facility] [address] [place] [address] Dr. Benito To LDH SerPl-cCncon 07-08-2022 LDH [Catalytic activity/Vol] 187 U/L Normal 135-225 [facility] Comment on above: Order Comment: Speci men Type: BLOOD SPECIMENOrdering Facility: [facility] Address: [address] [place] [address] Performed By: #### 2 532-0, 92686-2 ####[facility] LABCLIA [id number] [address] [id number] CBC W Auto Differential pane l (Bld)on 07-01-2022 Anisocytosis Ql (Bld) Present Normal [facility] Comment on above: Order Comment: Speci men Type: BLOOD SPECIMENOrdering Facility: [facility] Address: [address] [place] [address] Performed By: #### 5 7021-8 ####[facility] LABCLIA [id number] [address] LABCLIA [id number] [place] [id number] Basophils (Bld) [#/Vol] 0.13 10*3/uL High <0.11 [facility] Comment on above: Order Comment: Speci men Type: BLOOD SPECIMENOrdering Facility: [facility] Address: [address] [place] [address] Performed By: #### 5 7021-8 ####[facility] LABCLIA [id number] [address] LABCLIA [id number] [place] [id number] Basophils/100 WBC (Bld) 8.0 % Normal [facility] Comment on above: Order Comment: Speci men Type: BLOOD SPECIMENOrdering Facility: [facility] Address: [address] [place] [address] Performed By: #### 5 7021-8 ####[facility] LABCLIA [id number] [address] LABCLIA [id number] [place] [id number] Differential cell count method Nom (Bld) Manual Normal [facility] Comment on above: Order Comment: Speci men Type: BLOOD SPECIMENOrdering Facility: [facility] Address: [address] [place] [address] Performed By: #### 5 7021-8 ####[facility] LABCLIA [id number] [address] LABCLIA [id number] [place] [address] Eosinophils (Bld) [#/Vol] 0.02 10*3/uL Normal <0.46 [facility] Comment on above: Order Comment: Speci men Type: BLOOD SPECIMENOrdering Facility: [facility] Address: [address] Performed By: #### 5 7021-8 ####[facility] LABCLIA [id number] [address] LABCLIA [id number] [place] [address] Eosinophils/100 WBC (Bld) 1.0 % Normal [facility] Comment on above: Order Comment: Speci men Type: BLOOD SPECIMENOrdering Facility: [facility] Address: [address] [place], [place] [address] Performed By: #### 5 7021-8 ####[facility] LABCLIA [id number] [address] LABCLIA [id number] [place] [address] Erythrocyte distribution width (RBC) [Ratio] 17.9 % High 11.5-15.0 [facility] Comment on above: Order Comment: Speci men Type: BLOOD SPECIMENOrdering Facility: [facility] Address: [address] [place] [address] Performed By: #### 5 7021-8 ####[facility] LABCLIA [id number] [address] LABCLIA [id number] [place] [address] Hematocrit (Bld) [Volume fraction] 25.8 % Low 39.0-51.0 [facility] Comment on above: Order Comment: Speci men Type: BLOOD SPECIMENOrdering Facility: [facility] Address: [address] [place] [address] Performed By: #### 5 7021-8 ####[facility] LABCLIA [id number] [address] LABCLIA [id number] [place] [address] Hemoglobin (Bld) [Mass/Vol] 8.3 g/dL Low 13.0-17.0 [facility] Comment on above: Order Comment: Speci men Type: BLOOD SPECIMENOrdering Facility: [facility] Address: [address] [place] [address] Performed By: #### 5 7021-8 ####[facility] LABCLIA [id number] [address] LABCLIA [id number] [place] [address] Lymphocytes (Bld) [#/Vol] 0.67 10*3/uL Low 1.00-4.00 [facility] Comment on above: Order Comment: Speci men Type: BLOOD SPECIMENOrdering Facility: [facility] Address: [address] [place], [place] [address] Performed By: #### 5 7021-8 ####[facility] LABCLIA [id number] [address] LABCLIA [id number] [place] [address] Lymphocytes/100 WBC (Bld) 41.0 % Normal [facility] Comment on above: Order Comment: Speci men Type: BLOOD SPECIMENOrdering Facility: [facility] Address: [address] [place], [place] [address] Performed By: #### 5 7021-8 ####[facility] LABCLIA [id number] [address] LABCLIA [id number] [place] [address] MCH (RBC) [Entitic mass] 31.7 pg Normal 26.0-34.0 [facility] Comment on above: Order Comment: Speci men Type: BLOOD SPECIMENOrdering Facility: [facility] Address: [address] [place] [address] Performed By: #### 5 7021-8 ####[facility] LABCLIA [id number] [address] LABCLIA [id number] [place] [address] MCHC (RBC) [Mass/Vol] 32.2 g/dL Normal 30.5-36.0 [facility] Comment on above: Order Comment: Speci men Type: BLOOD SPECIMENOrdering Facility: [facility] Address: [address] [place] [address] Performed By: #### 5 7021-8 ####[facility] LABCLIA [id number] [address] LABCLIA [id number] [place] [address] MCV (RBC) [Entitic vol] 98.5 fL Normal 80.0-100.0 [facility] Comment on above: Order Comment: Speci men Type: BLOOD SPECIMENOrdering Facility: [facility] Address: [address] [place], [place] [address] Performed By: #### 5 7021-8 ####[facility] LABCLIA [id number] [address] LABCLIA [id number] [place] [address] Metamyelocytes/100 WBC (Bld) 2.0 % Normal [facility] Comment on above: Order Comment: Speci men Type: BLOOD SPECIMENOrdering Facility: [facility] Address: [address] [place] [address] Performed By: #### 5 7021-8 ####[facility] LABCLIA [id number] [address] LABCLIA [id number] [place] [address] Monocytes (Bld) [#/Vol] 0.08 10*3/uL Normal <0.87 [facility] Comment on above: Order Comment: Speci men Type: BLOOD SPECIMENOrdering Facility: [facility] Address: [address] [place] [address] Performed By: #### 5 7021-8 ####[facility] LABCLIA [id number] [address] LABCLIA [id number] [place] [address] Monocytes/100 WBC (Bld) 5.0 % Normal [facility] Comment on above: Order Comment: Speci men Type: BLOOD SPECIMENOrdering Facility: [facility] Address: [address] [place] [address] Performed By: #### 5 7021-8 ####[facility] LABCLIA [id number] [address] LABCLIA [id number] [place] [address] MYELO% 1.0 % Normal [facility] Comment on above: Order Comment: Speci men Type: BLOOD SPECIMENOrdering Facility: [facility] Address: [address] [place] [address] Performed By: #### 5 7021-8 ####[facility] LABCLIA [id number] [address] LABCLIA [id number] [place] [address] Neutrophils (Bld) [#/Vol] 0.68 10*3/uL Low 1.45-7.50 [facility] Comment on above: Order Comment: Speci men Type: BLOOD SPECIMENOrdering Facility: [facility] Address: [address] [place] [address] Performed By: #### 5 7021-8 ####[facility] LABCLIA [id number] [address] LABCLIA [id number] [place] [address] Neutrophils/100 WBC (Bld) 42.0 % Normal [facility] Comment on above: Order Comment: Speci men Type: BLOOD SPECIMENOrdering Facility: [facility] Address: [address] [place] [address] Performed By: #### 5 7021-8 ####[facility] LABCLIA [id number] [address] LABCLIA [id number] [place] [address] Nucleated RBC (Bld) [#/Vol] 10*3/uL Normal <0.01 [facility] Comment on above: Order Comment: Speci men Type: BLOOD SPECIMENOrdering Facility: [facility] Address: [address] [place], [place] [address] Performed By: #### 5 7021-8 ####[facility] LABCLIA [id number] [address] LABCLIA [id number] [place] [address] Nucleated RBC/100 WBC (Bld) [Ratio] 0.0 /100 WBC Normal [facility] Comment on above: Order Comment: Speci men Type: BLOOD SPECIMENOrdering Facility: [facility] Address: [address] [place] [address] Performed By: #### 5 7021-8 ####[facility] LABCLIA [id number] [address] LABCLIA [id number] [place] [address] Ovalocytes LM Ql (Bld) Few Normal [facility] Comment on above: Order Comment: Speci men Type: BLOOD SPECIMENOrdering Facility: [facility] Address: [address] [place] [address] Performed By: #### 5 7021-8 ####[facility] LABCLIA [id number] [address] LABCLIA [id number] [place] [address] Platelet mean volume (Bld) [Entitic vol] Normal [facility] Comment on above: Order Comment: Speci men Type: BLOOD SPECIMENOrdering Facility: [facility] Address: [address] [place] [address] Result Comment: Unab le to Report. Performed By: #### 5 7021-8 ####[facility] LABCLIA [id number] [address] LABCLIA [id number] [place] [address] Platelets (Bld) [#/Vol] 72 10*3/uL Low 150-400 [facility] Comment on above: Order Comment: Speci men Type: BLOOD SPECIMENOrdering Facility: [facility] Address: [address] [place] [address] Result Comment: Resu lts checked and verified. No clot detected Performed By: #### 5 7021-8 ####[facility] LABCLIA [id number] [address] LABCLIA [id number] [place] [address] Platelets Estimate (Bld) [#/Vol] Decreased Normal [facility] Comment on above: Order Comment: Speci men Type: BLOOD SPECIMENOrdering Facility: [facility] Address: [address] [place] [address] Performed By: #### 5 7021-8 ####[facility] LABCLIA [id number] [address] LABCLIA [id number] [place] [address] RBC (Bld) [#/Vol] 2.62 10*6/uL Low 4.20-6.00 [facility] Comment on above: Order Comment: Speci men Type: BLOOD SPECIMENOrdering Facility: [facility] Address: [address] [place] [address] Performed By: #### 5 7021-8 ####[facility] LABCLIA [id number] [address] LABCLIA [id number] [place] [address] RED CELL MORPH Reviewed: see result s of individual morphologies Normal [facility] Comment on above: Order Comment: Speci men Type: BLOOD SPECIMENOrdering Facility: [facility] Address: [address] [place] [address] Performed By: #### 5 7021-8 ####[facility] LABCLIA [id number] [address] LABCLIA [id number] [place] [address] WBC (Bld) [#/Vol] 1.63 10*3/uL Low 3.70-11.00 [facility] Comment on above: Order Comment: Speci men Type: BLOOD SPECIMENOrdering Facility: [facility] Address: [address] [place] [address] Result Comment: Resu lts checked and verified. No clot detected Performed By: #### 5 7021-8 ####[facility] LABCLIA [id number] [place] [id number] [facility] LABCLIA [id number] [place] [address] WBC Left Shift Ql (Bld) Present Normal [facility] Comment on above: Order Comment: Speci men Type: BLOOD SPECIMENOrdering Facility: [facility] Address: [address] [place] [address] Performed By: #### 5 7021-8 ####[facility] LABCLIA [id number] [address] LABCLIA [id number] [place] [address] CNOVSPon 07-01-2022 CNOVSP Normal [facility] metabolic 2000 panelon 07-01-2022 Albumin [Mass/Vol] 3.8 g/dL Low 3.9-4.9 [facility] Comment on above: Order Comment: Speci men Type: BLOOD SPECIMENOrdering Facility: [facility] Address: [address] [place] [address] Performed By: #### 2 4323-8 ####[facility] LABCLIA [id number] [place] [address] ALP [Catalytic activity/Vol] 118 U/L High 38-113 [facility] Comment on above: Order Comment: Speci men Type: BLOOD SPECIMENOrdering Facility: [facility] Address: [address] [place], [place] [address] Performed By: #### 2 4323-8 ####[facility] LABCLIA [id number] [place] [address] ALT [Catalytic activity/Vol] 44 U/L Normal 10-54 [facility] Comment on above: Order Comment: Speci men Type: BLOOD SPECIMENOrdering Facility: [facility] Address: [address] [address] Performed By: #### 2 4323-8 ####[facility] LABCLIA [id number] [place] [address] Anion gap [Moles/Vol] 8 mmol/L Low 9-18 [facility] Comment on above: Order Comment: Speci men Type: BLOOD SPECIMENOrdering Facility: [facility] Address: [address] [place] [address] Performed By: #### 2 4323-8 ####[facility] LABCLIA [id number] [place] [address] AST [Catalytic activity/Vol] 20 U/L Normal 14-40 [facility] Comment on above: Order Comment: Speci men Type: BLOOD SPECIMENOrdering Facility: [facility] Address: [address] [address] Performed By: #### 2 4323-8 ####[facility] LABCLIA [id number] [place] [address] Bilirubin [Mass/Vol] 1.0 mg/dL Normal 0.2-1.3 [facility] Comment on above: Order Comment: Speci men Type: BLOOD SPECIMENOrdering Facility: [facility] Address: [address] [address] Performed By: #### 2 4323-8 ####[facility] LABCLIA [id number] [place] [address] Calcium [Mass/Vol] 8.8 mg/dL Normal 8.5-10.2 [facility] Comment on above: Order Comment: Speci men Type: BLOOD SPECIMENOrdering Facility: [facility] Address: [address] [place] [address] Performed By: #### 2 4323-8 ####[facility] LABCLIA [id number] [place] [address] Chloride [Moles/Vol] 103 mmol/L Normal 97-105 [facility] Comment on above: Order Comment: Speci men Type: BLOOD SPECIMENOrdering Facility: [facility] Address: [address] [place] [address] Performed By: #### 2 4323-8 ####[facility] LABCLIA [id number] [place] [address] CO2 [Moles/Vol] 32 mmol/L High 22-30 [facility] Comment on above: Order Comment: Speci men Type: BLOOD SPECIMENOrdering Facility: [facility] Address: [address] [place] [address] Performed By: #### 2 4323-8 ####[facility] LABCLIA [id number] [place] [address] Creatinine [Mass/Vol] 1.43 mg/dL High 0.73-1.22 [facility] Comment on above: Order Comment: Speci men Type: BLOOD SPECIMENOrdering Facility: [facility] Address: [address] [place] [address] Performed By: #### 2 4323-8 ####[facility] LABCLIA [id number] [place] [address] ESTIMATED GLOMERULAR FILTRATION RATE 49 mL/min/1.73m??? Low >=60 [facility] Comment on above: Order Comment: Speci men Type: BLOOD SPECIMENOrdering Facility: [facility] Address: [address] [place] [address] Result Comment: Faye mated Glomerular Filtration Rate [...] actual GFR. Performed By: #### 2 4323-8 ####[facility] LABCLIA [id number] [place] [address] Glucose [Mass/Vol] 123 mg/dL High 74-99 [facility] Comment on above: Order Comment: Speci men Type: BLOOD SPECIMENOrdering Facility: [facility] Address: [address] [place] [address] Result Comment: The [place] [employer] (ADA) provides guidance for cutoff [...] Standards of Medical Care in Diabetes 2016, [place] [employer]. Diabetes Care. 2016.39(Suppl 1). Performed By: #### 2 4323-8 ####[facility] LABIA [id number] [place] [address] Potassium [Moles/Vol] 3.9 mmol/L Normal 3.7-5.1 [facility] Comment on above: Order Comment: Speci men Type: BLOOD SPECIMENOrdering Facility: [facility] Address: [address] [place] [address] Performed By: #### 2 4323-8 ####[facility] LABCLIA [id number] [place] [address] Protein [Mass/Vol] 6.2 g/dL Low 6.3-8.0 [facility] Comment on above: Order Comment: Speci men Type: BLOOD SPECIMENOrdering Facility: [facility] Address: [address] [place] [address] Performed By: #### 2 4323-8 ####[facility] LABCLIA [id number] [place] [address] Sodium [Moles/Vol] 143 mmol/L Normal 136-144 [facility] Comment on above: Order Comment: Speci men Type: BLOOD SPECIMENOrdering Facility: [facility] Address: [address] [place] [address] Performed By: #### 2 4323-8 ####[facility] LABCLIA [id number] [place] [address] Urea nitrogen [Mass/Vol] 21 mg/dL Normal 9-24 [facility] Comment on above: Order Comment: Speci men Type: BLOOD SPECIMENOrdering Facility: [facility] Address: [address] [place] [address] Performed By: #### 2 4323-8 ####[facility] LABCLIA [id number] [place] [address] LDH SerPl-cCncon 07-01-2022 LDH [Catalytic activity/Vol] 200 U/L Normal 135-225 [facility] Comment on above: Order Comment: Speci men Type: BLOOD SPECIMENOrdering Facility: [facility] Address: [address] [place] [address] Performed By: #### 2 532-0 ####[facility] LABCLIA [id number] [place] [address] HEMOGLOBIN AND HEMATOCRITon 06-25-2022 Hematocrit (Bld) [Volume fraction] 24.6 % Critically low 42.0-54.0 [facility] Comment on above: Performed By: #### T NS, PRBC #### [facility] [address] [place] [address] Dr. Benito To Hemoglobin (Bld) [Mass/Vol] 8.0 g/dL Critically low 14.0-18.0 [facility] Comment on above: Performed By: #### T NS, PRBC #### [facility] [address] [place] [address] Dr. Benito To TYPE AND SCREENon 06-25-2022 TYPE AND SCREEN Negative Normal [facility] Comment on above: Performed By: #### T NS, PRBC #### [facility] [address] [place] [address] Dr. Benito To CBC W Auto Differential pane l (Bld)on 06-24-2022 Anisocytosis Ql (Bld) Present Normal [facility] Comment on above: Order Comment: Speci men Type: BLOOD SPECIMENOrdering Facility: [facility] Address: [address] [address] Performed By: #### 5 7021-8 ####[facility] [facility] LABCLIA [id number] [address] LABCLIA [id number] [place] [address] [place] Basophils (Bld) [#/Vol] 0.04 10*3/uL Normal <0.11 [facility] Comment on above: Order Comment: Speci men Type: BLOOD SPECIMENOrdering Facility: [facility] Address: [address] [address] Performed By: #### 5 7021-8 ####[facility] LABCLIA [id number] [address] LABCLIA [id number] [place] [address] [place] Basophils/100 WBC (Bld) 2.0 % Normal [facility] Comment on above: Order Comment: Speci men Type: BLOOD SPECIMENOrdering Facility: [facility] Address: [address] [address] Performed By: #### 5 7021-8 ####[facility] LABCLIA [id number] [address] LABCLIA [id number] [place] [address] [place] Differential cell count method Nom (Bld) Manual Normal [facility] Comment on above: Order Comment: Speci men Type: BLOOD SPECIMENOrdering Facility: [facility] Address: [address] [place] [address] Performed By: #### 5 7021-8 ####[facility] LABCLIA [id number] [address] LABCLIA [id number] [place] [address] [place] Eosinophils (Bld) [#/Vol] 0.02 10*3/uL Normal <0.46 [facility] Comment on above: Order Comment: Speci men Type: BLOOD SPECIMENOrdering Facility: [facility] Address: [address] [place] [address] Performed By: #### 5 7021-8 ####[facility] LABCLIA [id number] [address] LABCLIA [id number] [place] [address] [place] Eosinophils/100 WBC (Bld) 1.0 % Normal [facility] Comment on above: Order Comment: Speci men Type: BLOOD SPECIMENOrdering Facility: [facility] Address: [address] [place] [address] Performed By: #### 5 7021-8 ####[facility] LABCLIA [id number] [address] LABCLIA [id number] [place] [address] [place] Erythrocyte distribution width (RBC) [Ratio] 18.7 % High 11.5-15.0 [facility] Comment on above: Order Comment: Speci men Type: BLOOD SPECIMENOrdering Facility: [facility] Address: [address] [place] [address] Performed By: #### 5 7021-8 ####[facility] LABCLIA [id number] [place] [address] LABCLIA [id number] [place] [address] [place] Hematocrit (Bld) [Volume fraction] 25.5 % Low 39.0-51.0 [facility] Comment on above: Order Comment: Speci men Type: BLOOD SPECIMENOrdering Facility: [facility] Address: [address] [place] [address] Performed By: #### 5 7021-8 ####[facility] LABCLIA [id number] [address] LABCLIA [id number] [place] [address] [place] Hemoglobin (Bld) [Mass/Vol] 8.1 g/dL Low 13.0-17.0 [facility] Comment on above: Order Comment: Speci men Type: BLOOD SPECIMENOrdering Facility: [facility] Address: [address] [place], [place] [address] Performed By: #### 5 7021-8 ####[facility] LABCLIA [id number] [address] LABCLIA [id number] [place] [address] [place] Lymphocytes (Bld) [#/Vol] 0.75 10*3/uL Low 1.00-4.00 [facility] Comment on above: Order Comment: Speci men Type: BLOOD SPECIMENOrdering Facility: [facility] Address: [address] [place], [place] [address] Performed By: #### 5 7021-8 ####[facility] LABCLIA [id number] [address] LABCLIA [id number] [place] [address] [place] Lymphocytes/100 WBC (Bld) 42.0 % Normal [facility] Comment on above: Order Comment: Speci men Type: BLOOD SPECIMENOrdering Facility: [facility] Address: [address] [place] [address] Performed By: #### 5 7021-8 ####[facility] LABCLIA [id number] [address] LABCLIA [id number] [place] [address] [place] MCH (RBC) [Entitic mass] 31.6 pg Normal 26.0-34.0 [facility] Comment on above: Order Comment: Speci men Type: BLOOD SPECIMENOrdering Facility: [facility] Address: [address] [place] [address] Performed By: #### 5 7021-8 ####[facility] LABCLIA [id number] [address] LABCLIA [id number] [place] [address] [place] MCHC (RBC) [Mass/Vol] 31.8 g/dL Normal 30.5-36.0 [facility] Comment on above: Order Comment: Speci men Type: BLOOD SPECIMENOrdering Facility: [facility] Address: [address] [place] [address] Performed By: #### 5 7021-8 ####[facility] LABCLIA [id number] [address] LABCLIA [id number] [place] [address] [place] MCV (RBC) [Entitic vol] 99.6 fL Normal 80.0-100.0 [facility] Comment on above: Order Comment: Speci men Type: BLOOD SPECIMENOrdering Facility: [facility] Address: [address] [place] [address] Performed By: #### 5 7021-8 ####[facility] LABCLIA [id number] [address] LABCLIA [id number] [place] [address] [place] Monocytes (Bld) [#/Vol] 0.14 10*3/uL Normal <0.87 [facility] Comment on above: Order Comment: Speci men Type: BLOOD SPECIMENOrdering Facility: [facility] Address: [address] [place] [address] Performed By: #### 5 7021-8 ####[facility] LABCLIA [id number] [address] LABCLIA [id number] [place] [address] [place] Monocytes/100 WBC (Bld) 8.0 % Normal [facility] Comment on above: Order Comment: Speci men Type: BLOOD SPECIMENOrdering Facility: [facility] Address: [address] [place] [address] Performed By: #### 5 7021-8 ####[facility] LABCLIA [id number] [address] LABCLIA [id number] [place] [address] [place] Neutrophils (Bld) [#/Vol] 0.84 10*3/uL Low 1.45-7.50 [facility] Comment on above: Order Comment: Speci men Type: BLOOD SPECIMENOrdering Facility: [facility] Address: [address] [place], [place] [address] Performed By: #### 5 7021-8 ####[facility] LABCLIA [id number] [address] LABCLIA [id number] [place] [address] [place] Neutrophils/100 WBC (Bld) 47.0 % Normal [facility] Comment on above: Order Comment: Speci men Type: BLOOD SPECIMENOrdering Facility: [facility] Address: [address] [address] Performed By: #### 5 7021-8 ####[facility] LABCLIA [id number] [address] LABCLIA [id number] [place] [address] [place] Nucleated RBC (Bld) [#/Vol] 10*3/uL Normal <0.01 [facility] Comment on above: Order Comment: Speci men Type: BLOOD SPECIMENOrdering Facility: [facility] Address: [address] [place] [address] Performed By: #### 5 7021-8 ####[facility] LABCLIA [id number] [address] LABCLIA [id number] [place] [address] [place] Nucleated RBC/100 WBC (Bld) [Ratio] 0.0 /100 WBC Normal [facility] Comment on above: Order Comment: Speci men Type: BLOOD SPECIMENOrdering Facility: [facility] Address: [address] [place] [address] Performed By: #### 5 7021-8 ####[facility] LABCLIA [id number] [address] LABCLIA [id number] [place] [address] [place] Ovalocytes LM Ql (Bld) Few Normal [facility] Comment on above: Order Comment: Speci men Type: BLOOD SPECIMENOrdering Facility: [facility] Address: [address] [place] [address] Performed By: #### 5 7021-8 ####[facility] LABCLIA [id number] [address] LABCLIA [id number] [place] [address] [place] Platelet mean volume (Bld) [Entitic vol] 14.0 fL High 9.0-12.7 [facility] Comment on above: Order Comment: Speci men Type: BLOOD SPECIMENOrdering Facility: [facility] Address: [address] [place] [address] Performed By: #### 5 7021-8 ####[facility] LABCLIA [id number] [address] LABCLIA [id number] [place] [address] [place] Platelets (Bld) [#/Vol] 72 10*3/uL Low 150-400 [facility] Comment on above: Order Comment: Speci men Type: BLOOD SPECIMENOrdering Facility: [facility] Address: [address] [place] [address] Result Comment: Samp le checked for clot Performed By: #### 5 7021-8 ####[facility] LABCLIA [id number] [address] LABCLIA [id number] [place] [address] [place] Platelets Estimate (Bld) [#/Vol] Decreased Normal [facility] Comment on above: Order Comment: Speci men Type: BLOOD SPECIMENOrdering Facility: [facility] Address: [address] [place], [place] [address] Performed By: #### 5 7021-8 ####[facility] LABCLIA [id number] [address] LABCLIA [id number] [place] [address] [place] RBC (Bld) [#/Vol] 2.56 10*6/uL Low 4.20-6.00 [facility] Comment on above: Order Comment: Speci men Type: BLOOD SPECIMENOrdering Facility: [facility] Address: [address] [address] Performed By: #### 5 7021-8 ####[facility] LABCLIA [id number] [address] LABCLIA [id number] [place] [address] [place] RBC FRAGMENTS Few Abnormal None Seen [facility] Comment on above: Order Comment: Speci men Type: BLOOD SPECIMENOrdering Facility: [facility] Address: [address] [place] [address] Performed By: #### 5 7021-8 ####[facility] LABCLIA [id number] [address] LABCLIA [id number] [place] [address] [place] RED CELL MORPH Reviewed: see result s of individual morphologies Normal [facility] Comment on above: Order Comment: Speci men Type: BLOOD SPECIMENOrdering Facility: [facility] Address: [address] [place] [address] Performed By: #### 5 7021-8 ####[facility] LABCLIA [id number] [address] LABCLIA [id number] [place] [address] [place] WBC (Bld) [#/Vol] 1.79 10*3/uL Low 3.70-11.00 [facility] Comment on above: Order Comment: Speci men Type: BLOOD SPECIMENOrdering Facility: [facility] Address: [address] [place] [address] Result Comment: Samp le checked for clot Performed By: #### 5 7021-8 ####[facility] LABCLIA [id number] [address] LABCLIA [id number] [place]Y [place] [id number] [address] [place] CNOVSPon 06-24-2022 CNOVSP Normal [facility] Comprehensive metabolic 2000 panelon 06-24-2022 Albumin [Mass/Vol] 3.7 g/dL Low 3.9-4.9 [facility] Comment on above: Order Comment: Speci men Type: BLOOD SPECIMENOrdering Facility: [facility] Address: [address] [place] [address] Performed By: #### 2 532-0, ####[facility] LABIA [id number] [place] [address] ALP [Catalytic activity/Vol] 117 U/L High 38-113 [facility] Comment on above: Order Comment: Speci men Type: BLOOD SPECIMENOrdering Facility: [facility] Address: [address] [place] [address] Performed By: #### 2 532-0, ####[facility] LABIA [id number] [place] [address] ALT [Catalytic activity/Vol] 48 U/L Normal 10-54 [facility] Comment on above: Order Comment: Speci men Type: BLOOD SPECIMENOrdering Facility: [facility] Address: [address] [place] [address] Performed By: #### 2 532-0, ####[facility] LABIA [id number] [place] [address] Anion gap [Moles/Vol] 9 mmol/L Normal 9-18 [facility] Comment on above: Order Comment: Speci men Type: BLOOD SPECIMENOrdering Facility: [facility] Address: [address] [place] [address] Performed By: #### 2 532-0, ####[facility] LABIA [id number] [place] [address] AST [Catalytic activity/Vol] 22 U/L Normal 14-40 [facility] Comment on above: Order Comment: Speci men Type: BLOOD SPECIMENOrdering Facility: [facility] Address: [address] [address] Performed By: #### 2 532-0, ####[facility] LABCLIA [id number] [place] [address] Bilirubin [Mass/Vol] 1.0 mg/dL Normal 0.2-1.3 [facility] Comment on above: Order Comment: Speci men Type: BLOOD SPECIMENOrdering Facility: [facility] Address: [address] [place] [address] Performed By: #### 2 532-0, ####[facility] LABIA [id number] [place] [address] Calcium [Mass/Vol] 8.6 mg/dL Normal 8.5-10.2 [facility] Comment on above: Order Comment: Speci men Type: BLOOD SPECIMENOrdering Facility: [facility] Address: [address] [place] [address] Performed By: #### 2 532-0, ####[facility] LABIA [id number] [place] [address] Chloride [Moles/Vol] 105 mmol/L Normal 97-105 [facility] Comment on above: Order Comment: Speci men Type: BLOOD SPECIMENOrdering Facility: [facility] Address: [address] Performed By: #### 2 532-0, ####[facility] LABIA [id number] [place] [address] CO2 [Moles/Vol] 30 mmol/L Normal 22-30 [facility] Comment on above: Order Comment: Speci men Type: BLOOD SPECIMENOrdering Facility: [facility] Address: [address] [place] [address] Performed By: #### 2 532-0, 28657-0 ####[facility] LABCLIA [id number] [place] [address] Creatinine [Mass/Vol] 1.52 mg/dL High 0.73-1.22 [facility] Comment on above: Order Comment: Speci men Type: BLOOD SPECIMENOrdering Facility: [facility] Address: [address] [place], [place] [address] Performed By: #### 2 532-0, 43999-2 ####[facility] LABCLIA [id number] [place] [address] ESTIMATED GLOMERULAR FILTRATION RATE 45 mL/min/1.73m??? Low >=60 [facility] Comment on above: Order Comment: Davi avendaño Type: BLOOD SPECIMENOrdering Facility: [facility] Address: [address] [place] [address] Result Comment: Faye mated Glomerular Filtration Rate [...] actual GFR. Performed By: #### 2 532-0, 90457-4 ####[facility] LABCLIA [id number] [place] [address] Glucose [Mass/Vol] 122 mg/dL High 74-99 [facility] Comment on above: Order Comment: Speci men Type: BLOOD SPECIMENOrdering Facility: [facility] Address: [address] [place] [address] Result Comment: The [place] [employer] (ADA) provides guidance for cutoff [...] Standards of Medical Care in Diabetes 2016, [place] [employer]. Diabetes Care. 2016.39(Suppl 1). Performed By: #### 2 532-0, 22182-2 ####[facility] LABIA [id number] [place] [address] Potassium [Moles/Vol] 3.6 mmol/L Low 3.7-5.1 [facility] Comment on above: Order Comment: Speci men Type: BLOOD SPECIMENOrdering Facility: [facility] Address: [address] [address] Performed By: #### 2 532-0, ####[facility] LABIA [id number] [place] [address] Protein [Mass/Vol] 6.1 g/dL Low 6.3-8.0 [facility] Comment on above: Order Comment: Speci men Type: BLOOD SPECIMENOrdering Facility: [facility] Address: [address] [address] Performed By: #### 2 532-0, ####[facility] LABIA [id number] [place] [address] Sodium [Moles/Vol] 144 mmol/L Normal 136-144 [facility] Comment on above: Order Comment: Speci men Type: BLOOD SPECIMENOrdering Facility: [facility] Address: [address] [address] Performed By: #### 2 532-0, ####[facility] LABIA [id number] [place] [address] Urea nitrogen [Mass/Vol] 21 mg/dL Normal 9-24 [facility] Comment on above: Order Comment: Speci men Type: BLOOD SPECIMENOrdering Facility: [facility] Address: [address] [address] Performed By: #### 2 532-0, 64339-8 ####[facility] LABCLIA [id number] [place] [id number] LDH SerPl-cCncon 06-24-2022 LDH [Catalytic activity/Vol] 198 U/L Normal 135-225 [facility] Comment on above: Order Comment: Speci men Type: BLOOD SPECIMENOrdering Facility: [facility] Address: [address] [place] [address] Performed By: #### 2 532-0, 73115-2 ####[facility] LABCLIA [id number] [place] [address] CBC W Auto Differential pane l (Bld)on 06-17-2022 Anisocytosis Ql (Bld) Present Normal [facility] Comment on above: Order Comment: Speci men Type: BLOOD SPECIMENOrdering Facility: [facility] Address: [address] [place] [address] Performed By: #### 5 7021-8 ####[facility] LABCLIA [id number] [address] LABCLIA [id number] [place] [address] [place] Basophils (Bld) [#/Vol] 0.05 10*3/uL Normal <0.11 [facility] Comment on above: Order Comment: Speci men Type: BLOOD SPECIMENOrdering Facility: [facility] Address: [address] [place] [address] Performed By: #### 5 7021-8 ####[facility] LABCLIA [id number] [address] LABCLIA [id number] [place] [address] [place] Basophils/100 WBC (Bld) 3.0 % Normal [facility] Comment on above: Order Comment: Speci men Type: BLOOD SPECIMENOrdering Facility: [facility] Address: [address] [place] [address] Performed By: #### 5 7021-8 ####[facility] LABCLIA [id number] [address] LABCLIA [id number] [place] [address] [place] Differential cell count method Nom (Bld) Manual Normal [facility] Comment on above: Order Comment: Speci men Type: BLOOD SPECIMENOrdering Facility: [facility] Address: [address] [place] [address] Performed By: #### 5 7021-8 ####[facility] LABCLIA [id number] [address] LABCLIA [id number] [place] [address] [place] Eosinophils (Bld) [#/Vol] 0.03 10*3/uL Normal <0.46 [facility] Comment on above: Order Comment: Speci men Type: BLOOD SPECIMENOrdering Facility: [facility] Address: [address] [place] [address] Performed By: #### 5 7021-8 ####[facility] LABCLIA [id number] [address] LABCLIA [id number] [place] [address] [place] Eosinophils/100 WBC (Bld) 2.0 % Normal [facility] Comment on above: Order Comment: Speci men Type: BLOOD SPECIMENOrdering Facility: [facility] Address: [address] [place] [address] Performed By: #### 5 7021-8 ####[facility] LABCLIA [id number] [address] LABCLIA [id number] [place] [address] [place] Erythrocyte distribution width (RBC) [Ratio] 19.8 % High 11.5-15.0 [facility] Comment on above: Order Comment: Speci men Type: BLOOD SPECIMENOrdering Facility: [facility] Address: [address] [place] [address] Performed By: #### 5 7021-8 ####[facility] LABCLIA [id number] [address] LABCLIA [id number] [place] [address] [place] Hematocrit (Bld) [Volume fraction] 26.1 % Low 39.0-51.0 [facility] Comment on above: Order Comment: Speci men Type: BLOOD SPECIMENOrdering Facility: [facility] Address: [address] [place] [address] Performed By: #### 5 7021-8 ####[facility] LABCLIA [id number] [address] LABCLIA [id number] [place] [address] [place] Hemoglobin (Bld) [Mass/Vol] 8.4 g/dL Low 13.0-17.0 [facility] Comment on above: Order Comment: Speci men Type: BLOOD SPECIMENOrdering Facility: [facility] Address: [address] [place] [address] Performed By: #### 5 7021-8 ####[facility] LABCLIA [id number] [address] LABCLIA [id number] [place] [address] [place] Lymphocytes (Bld) [#/Vol] 0.66 10*3/uL Low 1.00-4.00 [facility] Comment on above: Order Comment: Speci men Type: BLOOD SPECIMENOrdering Facility: [facility] Address: [address] [place] [address] Performed By: #### 5 7021-8 ####[facility] LABCLIA [id number] [address] LABCLIA [id number] [place] [address] [place] Lymphocytes/100 WBC (Bld) 40.0 % Normal [facility] Comment on above: Order Comment: Speci men Type: BLOOD SPECIMENOrdering Facility: [facility] Address: [address] [place] [address] Performed By: #### 5 7021-8 ####[facility] LABCLIA [id number] [address] LABCLIA [id number] [place] [address] [place] MCH (RBC) [Entitic mass] 32.1 pg Normal 26.0-34.0 [facility] Comment on above: Order Comment: Speci men Type: BLOOD SPECIMENOrdering Facility: [facility] Address: [address] [place] [address] Performed By: #### 5 7021-8 ####[facility] LABCLIA [id number] [address] LABCLIA [id number] [place] [address] [place] MCHC (RBC) [Mass/Vol] 32.2 g/dL Normal 30.5-36.0 [facility] Comment on above: Order Comment: Speci men Type: BLOOD SPECIMENOrdering Facility: [facility] Address: [address] [place] [address] Performed By: #### 5 7021-8 ####[facility] LABCLIA [id number] [address] LABCLIA [id number] [place] [address] [place] MCV (RBC) [Entitic vol] 99.6 fL Normal 80.0-100.0 [facility] Comment on above: Order Comment: Speci men Type: BLOOD SPECIMENOrdering Facility: [facility] Address: [address] [place] [address] Performed By: #### 5 7021-8 ####[facility] LABCLIA [id number] [address] LABCLIA [id number] [place] [address] [place] Monocytes (Bld) [#/Vol] 0.20 10*3/uL Normal <0.87 [facility] Comment on above: Order Comment: Speci men Type: BLOOD SPECIMENOrdering Facility: [facility] [facility] Address: [address] [place] [address] Performed By: #### 5 7021-8 ####[facility] LABCLIA [id number] [address] LABCLIA [id number] [place] [address] [place] Monocytes/100 WBC (Bld) 12.0 % Normal [facility] Comment on above: Order Comment: Speci men Type: BLOOD SPECIMENOrdering Facility: [facility] Address: [address] [place] [address] Performed By: #### 5 7021-8 ####[facility] LABCLIA [id number] [address] LABCLIA [id number] [place] [address] [place] Neutrophils (Bld) [#/Vol] 0.71 10*3/uL Low 1.45-7.50 [facility] Comment on above: Order Comment: Speci men Type: BLOOD SPECIMENOrdering Facility: [facility] Address: [address] [address] Performed By: #### 5 7021-8 ####[facility] LABCLIA [id number] [address] LABCLIA [id number] [place] [address] [place] Neutrophils/100 WBC (Bld) 43.0 % Normal [facility] Comment on above: Order Comment: Speci men Type: BLOOD SPECIMENOrdering Facility: [facility] Address: [address] [address] Performed By: #### 5 7021-8 ####[facility] LABCLIA [id number] [address] LABCLIA [id number] [place] [address] [place] Nucleated RBC (Bld) [#/Vol] 10*3/uL Normal <0.01 [facility] Comment on above: Order Comment: Speci men Type: BLOOD SPECIMENOrdering Facility: [facility] Address: [address] Performed By: #### 5 7021-8 ####[facility] LABCLIA [id number] [address] LABCLIA [id number] [place] [address] [place] Nucleated RBC/100 WBC (Bld) [Ratio] 0.0 /100 WBC Normal [facility] Comment on above: Order Comment: Speci men Type: BLOOD SPECIMENOrdering Facility: [facility] Address: [address] [place], [place] [address] Performed By: #### 5 7021-8 ####[facility] LABCLIA [id number] [address] LABCLIA [id number] [place] [address] [place] Ovalocytes LM Ql (Bld) Few Normal [facility] Comment on above: Order Comment: Speci men Type: BLOOD SPECIMENOrdering Facility: [facility] Address: [address] [place] [address] Performed By: #### 5 7021-8 ####[facility] LABCLIA [id number] [address] LABCLIA [id number] [place] [address] [place] Platelet mean volume (Bld) [Entitic vol] 14.0 fL High 9.0-12.7 [facility] Comment on above: Order Comment: Speci men Type: BLOOD SPECIMENOrdering Facility: [facility] Address: [address] [place] [address] Performed By: #### 5 7021-8 ####[facility] LABCLIA [id number] [address] LABCLIA [id number] [place] [address] [place] Platelets (Bld) [#/Vol] 56 10*3/uL Low 150-400 [facility] Comment on above: Order Comment: Speci men Type: BLOOD SPECIMENOrdering Facility: [facility] Address: [address] [place] [address] Result Comment: Samp le checked for clot Performed By: #### 5 7021-8 ####[facility] LABCLIA [id number] [address] LABCLIA [id number] [place] [address] [place] Platelets Estimate (Bld) [#/Vol] Decreased Normal [facility] Comment on above: Order Comment: Speci men Type: BLOOD SPECIMENOrdering Facility: [facility] Address: [address] [place] [address] Performed By: #### 5 7021-8 ####[facility] LABCLIA [id number] [address] LABCLIA [id number] [place] [address] [place] RBC (Bld) [#/Vol] 2.62 10*6/uL Low 4.20-6.00 [facility] Comment on above: Order Comment: Speci men Type: BLOOD SPECIMENOrdering Facility: [facility] Address: [address] Performed By: #### 5 7021-8 ####[facility] LABCLIA [id number] [address] LABCLIA [id number] [place] [address] [place] RBC FRAGMENTS Few Abnormal None Seen [facility] Comment on above: Order Comment: Speci men Type: BLOOD SPECIMENOrdering Facility: [facility] Address: [address] [place] [address] Performed By: #### 5 7021-8 ####[facility] LABCLIA [id number] [address] LABCLIA [id number] [place] [address] [place] RED CELL MORPH Reviewed: see result s of individual morphologies Normal [facility] Comment on above: Order Comment: Speci men Type: BLOOD SPECIMENOrdering Facility: [facility] Address: [address] [place] [address] Performed By: #### 5 7021-8 ####[facility] LABCLIA [id number] [address] LABCLIA [id number] [place] [address] [place] WBC (Bld) [#/Vol] 1.64 10*3/uL Low 3.70-11.00 [facility] Comment on above: Order Comment: Speci men Type: BLOOD SPECIMENOrdering Facility: [facility] Address: [address] [place] [address] Result Comment: [facility] le checked for clot Performed By: #### 5 7021-8 ####[facility] LABCLIA [id number] [place], [place] [address] LABCLIA [id number] [facility] [id number] [id number] [place] CNOVSPon 06-17-2022 CNOVSP Normal [facility] CNPNon 06-17-2022 CNPN Normal [facility] Comprehensive metabolic 2000 panelon 06-17-2022 Albumin [Mass/Vol] 4.0 g/dL Normal 3.9-4.9 [facility] Comment on above: Order Comment: Speci men Type: BLOOD SPECIMENOrdering Facility: [facility] Address: [address] [address] Performed By: #### 2 4323-8 ####[facility] LABIA [id number] [place] [address] ALP [Catalytic activity/Vol] 108 U/L Normal 38-113 [facility] Comment on above: Order Comment: Speci men Type: BLOOD SPECIMENOrdering Facility: [facility] Address: [address] [address] Performed By: #### 2 4323-8 ####[facility] LABCLIA [id number] [place] [address] ALT [Catalytic activity/Vol] 42 U/L Normal 10-54 [facility] Comment on above: Order Comment: Speci men Type: BLOOD SPECIMENOrdering Facility: [facility] Address: [address] [address] Performed By: #### 2 4323-8 ####[facility] LABCLIA [id number] [place] [address] Anion gap [Moles/Vol] 8 mmol/L Low 9-18 [facility] Comment on above: Order Comment: Speci men Type: BLOOD SPECIMENOrdering Facility: [facility] Address: [address] [place] [address] Performed By: #### 2 4323-8 ####[facility] LABCLIA [id number] [place] [address] AST [Catalytic activity/Vol] 22 U/L Normal 14-40 [facility] Comment on above: Order Comment: Speci men Type: BLOOD SPECIMENOrdering Facility: [facility] Address: [address] [place] [address] Performed By: #### 2 4323-8 ####[facility] LABCLIA [id number] [place] [address] Bilirubin [Mass/Vol] 0.9 mg/dL Normal 0.2-1.3 [facility] Comment on above: Order Comment: Speci men Type: BLOOD SPECIMENOrdering Facility: [facility] Address: [address] [place] [address] Performed By: #### 2 4323-8 ####[facility] LABCLIA [id number] [place] [address] Calcium [Mass/Vol] 8.9 mg/dL Normal 8.5-10.2 [facility] Comment on above: Order Comment: Speci men Type: BLOOD SPECIMENOrdering Facility: [facility] Address: [address] [place] [address] Performed By: #### 2 4323-8 ####[facility] LABCLIA [id number] [place] [address] Chloride [Moles/Vol] 103 mmol/L Normal 97-105 [facility] Comment on above: Order Comment: Speci men Type: BLOOD SPECIMENOrdering Facility: [facility] Address: [address] [place], [place] [address] Performed By: #### 2 4323-8 ####[facility] LABCLIA [id number] [place] [address] CO2 [Moles/Vol] 31 mmol/L High 22-30 [facility] Comment on above: Order Comment: Speci men Type: BLOOD SPECIMENOrdering Facility: [facility] Address: [address] [address] Performed By: #### 2 4323-8 ####[facility] LABCLIA [id number] [place] [address] Creatinine [Mass/Vol] 1.52 mg/dL High 0.73-1.22 [facility] Comment on above: Order Comment: Speci men Type: BLOOD SPECIMENOrdering Facility: [facility] Address: [address] [place] [address] Performed By: #### 2 4323-8 ####[facility] LABCLIA [id number] [place] [address] ESTIMATED GLOMERULAR FILTRATION RATE 45 mL/min/1.73m??? Low >=60 [facility] Comment on above: Order Comment: Speci men Type: BLOOD SPECIMENOrdering Facility: [facility] Address: [address] [place] [address] Result Comment: Faye mated Glomerular Filtration Rate [...] actual GFR. Performed By: #### 2 4323-8 ####[facility] LABCLIA [id number] [place] [address] Glucose [Mass/Vol] 141 mg/dL High 74-99 [facility] Comment on above: Order Comment: Speci men Type: BLOOD SPECIMENOrdering Facility: [facility] Address: [address] [address] Result Comment: The [place] [employer] (ADA) provides guidance for cutoff [...] Standards of Medical Care in Diabetes 2016, [place] [employer]. Diabetes Care. 2016.39(Suppl 1). Performed By: #### 2 4323-8 ####[facility] LABCLIA [id number] [place] [address] Potassium [Moles/Vol] 3.9 mmol/L Normal 3.7-5.1 [facility] Comment on above: Order Comment: Speci men Type: BLOOD SPECIMENOrdering Facility: [facility] Address: [address] [address] Performed By: #### 2 4323-8 ####[facility] LABCLIA [id number] [place] [address] Protein [Mass/Vol] 6.3 g/dL Normal 6.3-8.0 [facility] Comment on above: Order Comment: Speci men Type: BLOOD SPECIMENOrdering Facility: [facility] Address: [address] [address] Performed By: #### 2 4323-8 ####[facility] LABCLIA [id number] [place] [address] Sodium [Moles/Vol] 142 mmol/L Normal 136-144 [facility] Comment on above: Order Comment: Speci men Type: BLOOD SPECIMENOrdering Facility: [facility] Address: [address] [address] Performed By: #### 2 4323-8 ####[facility] LABCLIA [id number] [place] [address] Urea nitrogen [Mass/Vol] 24 mg/dL Normal 9-24 [facility] Comment on above: Order Comment: Speci men Type: BLOOD SPECIMENOrdering Facility: [facility] Address: [address] [place] [address] Performed By: #### 2 4323-8 ####[facility] LABCLIA [id number] [place] [address] HEMOGLOBIN AND HEMATOCRITon 06-17-2022 Hematocrit (Bld) [Volume fraction] 25.0 % Critically low 42.0-54.0 [facility] Comment on above: Performed By: #### T NS, PRBC #### [facility] [address] [address] [address] Benito To Hemoglobin (Bld) [Mass/Vol] 8.0 g/dL Critically low 14.0-18.0 [facility] Comment on above: Performed By: #### T NS, PRBC #### [facility] [address] [address] [address] Benito To LDH SerPl-cCncon 06-17-2022 LDH [Catalytic activity/Vol] 199 U/L Normal 135-225 [facility] Comment on above: Order Comment: Speci men Type: BLOOD SPECIMENOrdering Facility: [facility] Address: [address] [place] [address] Performed By: #### 2 532-0 ####[facility] LABCLIA [id number] [place] [address] TYPE AND SCREENon 06-17-2022 TYPE AND SCREEN Negative Normal [facility] Comment on above: Performed By: #### T NS, PRBC #### [facility] [address] [address] [address] Benito To HEMOGLOBIN AND HEMATOCRITon 06-11-2022 Hematocrit (Bld) [Volume fraction] 21.3 % Critically low 42.0-54.0 [facility] Comment on above: Performed By: #### T NS, PRBC #### [facility] [address] [address] [address] Benito To Hemoglobin (Bld) [Mass/Vol] 7.1 g/dL Critically low 14.0-18.0 [facility] Comment on above: Performed By: #### T NS, PRBC #### [facility] [address] [address] [address] Benito To TYPE AND SCREENon 06-11-2022 TYPE AND SCREEN Negative Normal [facility] Comment on above: Performed By: #### P RBC, TNS #### [facility] [address] [place] [address] Dr. Benito To CBC W Auto Differential pane l (Bld)on 06-10-2022 Anisocytosis Ql (Bld) Present Normal [facility] Comment on above: Order Comment: Speci men Type: BLOOD SPECIMENOrdering Facility: [facility] Address: [address] [place] [address] Performed By: #### 5 7021-8 ####[facility] LABCLIA [id number] [address] LABCLIA [id number] [place] [address] [place] Basophils (Bld) [#/Vol] 0.02 10*3/uL Normal <0.11 [facility] Comment on above: Order Comment: Speci men Type: BLOOD SPECIMENOrdering Facility: [facility] Address: [address] [place] [address] Performed By: #### 5 7021-8 ####[facility] LABCLIA [id number] [address] LABCLIA [id number] [place] [address] [place] Basophils/100 WBC (Bld) 2.0 % Normal [facility] Comment on above: Order Comment: Speci men Type: BLOOD SPECIMENOrdering Facility: [facility] Address: [address] [place] [address] Performed By: #### 5 7021-8 ####[facility] LABCLIA [id number] [address] LABCLIA [id number] [place] [address] [place] Differential cell count method Nom (Bld) Manual Normal [facility] Comment on above: Order Comment: Speci men Type: BLOOD SPECIMENOrdering Facility: [facility] Address: [address] [place] [address] Performed By: #### 5 7021-8 ####[facility] LABCLIA [id number] [address] LABCLIA [id number] [place] [address] [place] Eosinophils (Bld) [#/Vol] 0.03 10*3/uL Normal <0.46 [facility] Comment on above: Order Comment: Speci men Type: BLOOD SPECIMENOrdering Facility: [facility] Address: [address] [place] [address] Performed By: #### 5 7021-8 ####[facility] LABCLIA [id number] [address] LABCLIA [id number] [place] [address] [place] Eosinophils/100 WBC (Bld) 3.0 % Normal [facility] Comment on above: Order Comment: Speci men Type: BLOOD SPECIMENOrdering Facility: [facility] Address: [address] [place] [address] Performed By: #### 5 7021-8 ####[facility] LABCLIA [id number] [address] LABCLIA [id number] [place] [address] [place] Erythrocyte distribution width (RBC) [Ratio] 21.2 % High 11.5-15.0 [facility] Comment on above: Order Comment: Speci men Type: BLOOD SPECIMENOrdering Facility: [facility] Address: [address] [place] [address] Performed By: #### 5 7021-8 ####[facility] LABCLIA [id number] [address] LABCLIA [id number] [place] [address] [place] Hematocrit (Bld) [Volume fraction] 22.8 % Low 39.0-51.0 [facility] Comment on above: Order Comment: Speci men Type: BLOOD SPECIMENOrdering Facility: [facility] Address: [address] [place] [address] Performed By: #### 5 7021-8 ####[facility] LABCLIA [id number] [address] LABCLIA [id number] [place] [address] [place] Hemoglobin (Bld) [Mass/Vol] 7.3 g/dL Low 13.0-17.0 [facility] Comment on above: Order Comment: Speci men Type: BLOOD SPECIMENOrdering Facility: [facility] Address: [address] [place] [address] Performed By: #### 5 7021-8 ####[facility] LABCLIA [id number] [address] LABCLIA [id number] [place] [address] [place] Lymphocytes (Bld) [#/Vol] 0.64 10*3/uL Low 1.00-4.00 [facility] Comment on above: Order Comment: Speci men Type: BLOOD SPECIMENOrdering Facility: [facility] Address: [address] [address] Performed By: #### 5 7021-8 ####[facility] LABCLIA [id number] [address] LABCLIA [id number] [place] [address] [place] Lymphocytes/100 WBC (Bld) 55.0 % Normal [facility] Comment on above: Order Comment: Speci men Type: BLOOD SPECIMENOrdering Facility: [facility] Address: [address] [address] Performed By: #### 5 7021-8 ####[facility] LABCLIA [id number] [address] LABCLIA [id number] [place] [address] [place] MCH (RBC) [Entitic mass] 32.4 pg Normal 26.0-34.0 [facility] Comment on above: Order Comment: Speci men Type: BLOOD SPECIMENOrdering Facility: [facility] Address: [address] [place] [address] Performed By: #### 5 7021-8 ####[facility] LABCLIA [id number] [address] LABCLIA [id number] [place] [address] [place] MCHC (RBC) [Mass/Vol] 32.0 g/dL Normal 30.5-36.0 [facility] Comment on above: Order Comment: Speci men Type: BLOOD SPECIMENOrdering Facility: [facility] Address: [address] [place] [address] Performed By: #### 5 7021-8 ####[facility] LABCLIA [id number] [address] LABCLIA [id number] [place] [address] [place] MCV (RBC) [Entitic vol] 101.3 fL High 80.0-100.0 [facility] Comment on above: Order Comment: Speci men Type: BLOOD SPECIMENOrdering Facility: [facility] Address: [address] [place] [address] Performed By: #### 5 7021-8 ####[facility] LABCLIA [id number] [address] LABCLIA [id number] [place] [address] [place] Monocytes (Bld) [#/Vol] 0.14 10*3/uL Normal <0.87 [facility] Comment on above: Order Comment: Speci men Type: BLOOD SPECIMENOrdering Facility: [facility] Address: [address] [place] [address] Performed By: #### 5 7021-8 ####[facility] LABCLIA [id number] [address] LABCLIA [id number] [place] [address] [place] Monocytes/100 WBC (Bld) 12.0 % Normal [facility] Comment on above: Order Comment: Speci men Type: BLOOD SPECIMENOrdering Facility: [facility] Address: [address] [place], [place] [address] Performed By: #### 5 7021-8 ####[facility] LABCLIA [id number] [address] LABCLIA [id number] [place] [address] [place] Neutrophils (Bld) [#/Vol] 0.32 10*3/uL Low 1.45-7.50 [facility] Comment on above: Order Comment: Speci men Type: BLOOD SPECIMENOrdering Facility: [facility] Address: [facility] [address] Performed By: #### 5 7021-8 ####[facility] LABCLIA [id number] [address] LABCLIA [id number] [place] [address] [place] Neutrophils/100 WBC (Bld) 28.0 % Normal [facility] Comment on above: Order Comment: Speci men Type: BLOOD SPECIMENOrdering Facility: [facility] Address: [address] Performed By: #### 5 7021-8 ####[facility] LABCLIA [id number] [address] LABCLIA [id number] [place] [address] [place] Nucleated RBC (Bld) [#/Vol] 10*3/uL Normal <0.01 [facility] Comment on above: Order Comment: Speci men Type: BLOOD SPECIMENOrdering Facility: [facility] Address: [address] Performed By: #### 5 7021-8 ####[facility] LABCLIA [id number] [address] LABCLIA [id number] [place] [address] [place] Nucleated RBC/100 WBC (Bld) [Ratio] 0.0 /100 WBC Normal [facility] Comment on above: Order Comment: Speci men Type: BLOOD SPECIMENOrdering Facility: [facility] Address: [address] [place], [place] [address] Performed By: #### 5 7021-8 ####[facility] LABCLIA [id number] [address] LABCLIA [id number] [place] [address] [place] Ovalocytes LM Ql (Bld) Few Normal [facility] Comment on above: Order Comment: Speci men Type: BLOOD SPECIMENOrdering Facility: [facility] Address: [address] [place] [address] Performed By: #### 5 7021-8 ####[facility] LABCLIA [id number] [address] LABCLIA [id number] [place] [address] [place] Platelet mean volume (Bld) [Entitic vol] Normal [facility] Comment on above: Order Comment: Speci men Type: BLOOD SPECIMENOrdering Facility: [facility] Address: [address] [place] [address] Result Comment: Unab le to Report. Performed By: #### 5 7021-8 ####[facility] LABCLIA [id number] [address] LABCLIA [id number] [place] [address] [place] Platelets (Bld) [#/Vol] 40 10*3/uL Low 150-400 [facility] Comment on above: Order Comment: Speci men Type: BLOOD SPECIMENOrdering Facility: [facility] Address: [address] [place], [place] [address] Result Comment: Samp le checked for clot Performed By: #### 5 7021-8 ####[facility] LABCLIA [id number] [address] LABCLIA [id number] [place] [address] [place] Platelets Estimate (Bld) [#/Vol] Decreased Normal [facility] Comment on above: Order Comment: Speci men Type: BLOOD SPECIMENOrdering Facility: [facility] Address: [address] [place] [address] Performed By: #### 5 7021-8 ####[facility] LABCLIA [id number] [address] LABCLIA [id number] [place] [address] [place] Polychromasia LM Ql (Bld) Slight Normal [facility] Comment on above: Order Comment: Speci men Type: BLOOD SPECIMENOrdering Facility: [facility] Address: [address] [place] [address] Performed By: #### 5 7021-8 ####[facility] LABCLIA [id number] [address] LABCLIA [id number] [place] [address] [place] RBC (Bld) [#/Vol] 2.25 10*6/uL Low 4.20-6.00 [facility] Comment on above: Order Comment: Speci men Type: BLOOD SPECIMENOrdering Facility: [facility] Address: [address] [place] [address] Performed By: #### 5 7021-8 ####[facility] LABCLIA [id number] [address] LABCLIA [id number] [place] [address] [place] RBC FRAGMENTS Few Abnormal None Seen [facility] Comment on above: Order Comment: Speci men Type: BLOOD SPECIMENOrdering Facility: [facility] Address: [address] [place], [place] [address] Performed By: #### 5 7021-8 ####[facility] LABCLIA [id number] [address] LABCLIA [id number] [place] [address] [place] RED CELL MORPH Reviewed: see result s of individual morphologies Normal [facility] Comment on above: Order Comment: Speci men Type: BLOOD SPECIMENOrdering Facility: [facility] Address: [address] [place] [address] Performed By: #### 5 7021-8 ####[facility] LABCLIA [id number] [place] [address] LABCLIA [id number] [place] [address] [place] WBC (Bld) [#/Vol] 1.16 10*3/uL Low 3.70-11.00 [facility] Comment on above: Order Comment: Speci men Type: BLOOD SPECIMENOrdering Facility: [facility] Address: [address] [place] [address] Result Comment: Samp le checked for clot Performed By: #### 5 7021-8 ####[facility] LABCLIA [id number] [address] LABCLIA [id number] [place] [address] [place] CNOVSPon 06-10-2022 CNOVSP Normal [facility] Comprehensive metabolic 2000 panelon 06-10-2022 Albumin [Mass/Vol] 4.0 g/dL Normal 3.9-4.9 [facility] Comment on above: Order Comment: Speci men Type: BLOOD SPECIMENOrdering Facility: [facility] Address: [address] Performed By: #### 2 4323-8, 2532-0 ####[facility] LABIA [id number] [place] [id number] ALP [Catalytic activity/Vol] 108 U/L Normal 38-113 [facility] Comment on above: Order Comment: Speci men Type: BLOOD SPECIMENOrdering Facility: [facility] Address: [address] [place], [place] [address] Performed By: #### 2 4323-8, 2532-0 ####[facility] LABCLIA [id number] [place] [address] ALT [Catalytic activity/Vol] 40 U/L Normal 10-54 [facility] Comment on above: Order Comment: Speci men Type: BLOOD SPECIMENOrdering Facility: [facility] Address: [address] [place] [address] Performed By: #### 2 4323-8, 2531-0 ####[facility] LABCLIA [id number] [place] [address] Anion gap [Moles/Vol] 8 mmol/L Low 9-18 [facility] Comment on above: Order Comment: Speci men Type: BLOOD SPECIMENOrdering Facility: [facility] Address: [address] [place] [address] Performed By: #### 2 43238, 2531-0 ####[facility] LABCLIA [id number] [place] [address] AST [Catalytic activity/Vol] 18 U/L Normal 14-40 [facility] Comment on above: Order Comment: Speci men Type: BLOOD SPECIMENOrdering Facility: [facility] Address: [address] [place] [address] Performed By: #### 2 43238, 2531-0 ####[facility] LABCLIA [id number] [place] [address] Bilirubin [Mass/Vol] 1.1 mg/dL Normal 0.2-1.3 [facility] Comment on above: Order Comment: Speci men Type: BLOOD SPECIMENOrdering Facility: [facility] Address: [address] [place] [address] Performed By: #### 2 4323-8, 2531-0 ####[facility] LABCLIA [id number] [place] [address] Calcium [Mass/Vol] 9.0 mg/dL Normal 8.5-10.2 [facility] Comment on above: Order Comment: Speci men Type: BLOOD SPECIMENOrdering Facility: [facility] Address: [address] [place] [place] [address] Performed By: #### 2 4323-8, 2531-0 ####[facility] LABCLIA [id number] [place] [address] Chloride [Moles/Vol] 104 mmol/L Normal 97-105 [facility] Comment on above: Order Comment: Speci men Type: BLOOD SPECIMENOrdering Facility: [facility] Address: [address] [place] [address] Performed By: #### 2 4323-8, 2531-0 ####[facility] LABCLIA [id number] [place] [address] CO2 [Moles/Vol] 30 mmol/L Normal 22-30 [facility] Comment on above: Order Comment: Speci men Type: BLOOD SPECIMENOrdering Facility: [facility] Address: [address] [place] [address] Performed By: #### 2 4323-8, 2531-0 ####[facility] LABCLIA [id number] [place] [address] Creatinine [Mass/Vol] 1.60 mg/dL High 0.73-1.22 [facility] Comment on above: Order Comment: Speci men Type: BLOOD SPECIMENOrdering Facility: [facility] Address: [address] [place] [address] Performed By: #### 2 4323-8, 2531-0 ####[facility] LABCLIA [id number] [place] [address] ESTIMATED GLOMERULAR FILTRATION RATE 42 mL/min/1.73m??? Low >=60 [facility] Comment on above: Order Comment: Speci men Type: BLOOD SPECIMENOrdering Facility: [facility] Address: [address] [place] [address] Result Comment: Faye mated Glomerular Filtration Rate [...] GFR. Performed By: #### 2 4323-8, 2531-0 ####[facility] LABCLIA [id number] [place] [address] Glucose [Mass/Vol] 139 mg/dL High 74-99 [facility] Comment on above: Order Comment: Davi avendaño Type: BLOOD SPECIMENOrdering Facility: [facility] Address: [address] [place], [place] [address] Result Comment: The [place] Diabetes [employer] (ADA) provides guidance for cutoff [...] Standards of Medical Care in Diabetes 2016, [place] [employer]. Diabetes Care. 2016.39(Suppl 1). Performed By: #### 2 4328, ####[facility] LABCLIA [id number] [place] [address] Potassium [Moles/Vol] 3.8 mmol/L Normal 3.7-5.1 [facility] Comment on above: Order Comment: Davi avendaño Type: BLOOD SPECIMENOrdering Facility: [facility] Address: [address] [place] [address] Performed By: #### 2 4323-8, 2531-0 ####[facility] LABCLIA [id number] [place] [address] Protein [Mass/Vol] 6.4 g/dL Normal 6.3-8.0 [facility] Comment on above: Order Comment: Speci men Type: BLOOD SPECIMENOrdering Facility: [facility] Address: [address] [place] [address] Performed By: #### 2 4323-8, 2531-0 ####[facility] LABCLIA [id number] [place] [address] Sodium [Moles/Vol] 142 mmol/L Normal 136-144 [facility] Comment on above: Order Comment: Speci men Type: BLOOD SPECIMENOrdering Facility: [facility] Address: [address] [place] [address] Performed By: #### 2 4323-8, 2531-0 ####[facility] LABCLIA [id number] [place] [address] Urea nitrogen [Mass/Vol] 27 mg/dL High 9-24 [facility] Comment on above: Order Comment: Speci men Type: BLOOD SPECIMENOrdering Facility: [facility] Address: [address] [place] [address] Performed By: #### 2 4328, 0 ####[facility] LABIA [id number] [place] [address] LDH SerPl-cCncon 06-10-2022 LDH [Catalytic activity/Vol] 200 U/L Normal 135-225 [facility] Comment on above: Order Comment: Speci men Type: BLOOD SPECIMENOrdering Facility: [facility] Address: [address] [place] [address] Performed By: #### 2 4323-8, 2531-0 ####[facility] LABIA [id number] [place] [address] CNPNon 06-07-2022 CNPN Normal [facility] HEMOGLOBIN AND HEMATOCRITon 06-07-2022 Hematocrit (Bld) [Volume fraction] 23.0 % Critically low 42.0-54.0 [facility] Comment on above: Performed By: #### H H #### [facility] [address] [place] [address] Dr. Benito To Hemoglobin (Bld) [Mass/Vol] 7.7 g/dL Critically low 14.0-18.0 [facility] Comment on above: Performed By: #### H H #### [facility] [address] [place] [address] Dr. Benito To PRBC LEUKOREDUCEDon 06-06-20 ABO and Rh group Nom (Bld) Cross Match Result Compatible Unit Blood Type A Pos Unit Number [id number] Status Information Transfused Product ID Red Blood Cells Product Code [id number] Cross Match Result Compatible Unit Blood Type O Neg Unit Number [id number] Status Information Transfused Product ID Red Blood Cells Product Code [id number] Normal [facility] Comment on above: Performed By: #### H H #### [facility] [address] [place] [address] Dr. Benito To HEMOGLOBIN AND HEMATOCRITon 06-04-2022 Hematocrit (Bld) [Volume fraction] 20.4 % Critically low 42.0-54.0 [facility] Comment on above: Performed By: #### H GBHCT #### [facility] [address] [place] [address] Dr. Benito To Hemoglobin (Bld) [Mass/Vol] 6.5 g/dL Critically low 14.0-18.0 [facility] Comment on above: Performed By: #### H GBHCT #### [facility] [address] [place] [address] Dr. Benito To TYPE AND SCREENon 06-04-2022 TYPE AND SCREEN Negative Normal [facility] Comment on above: Performed By: #### H H #### [facility] [address] [place] [address] Dr. Benito To CBC W Auto Differential pane l (Bld)on 06-03-2022 Anisocytosis Ql (Bld) Present Normal [facility] Comment on above: Order Comment: Speci men Type: BLOOD SPECIMENOrdering Facility: [facility] Address: [address] Performed By: #### 5 7021-8 ####[facility] LABCLIA [id number] [address] LABCLIA [id number] [place] [address] [place] Basophils (Bld) [#/Vol] 0.02 10*3/uL Normal <0.11 [facility] Comment on above: Order Comment: Speci men Type: BLOOD SPECIMENOrdering Facility: [facility] Address: [address] [place] [address] Performed By: #### 5 7021-8 ####[facility] LABCLIA [id number] [address] LABCLIA [id number] [place] [address] [place] Basophils/100 WBC (Bld) 1.3 % Normal [facility] Comment on above: Order Comment: Speci men Type: BLOOD SPECIMENOrdering Facility: [facility] Address: [address] [place] [address] Performed By: #### 5 7021-8 ####[facility] LABCLIA [id number] [address] LABCLIA [id number] [place] [address] [place] Differential cell count method Nom (Bld) Manual Normal [facility] Comment on above: Order Comment: Speci men Type: BLOOD SPECIMENOrdering Facility: [facility] Address: [address] Performed By: #### 5 7021-8 ####[facility] LABCLIA [id number] [address] LABCLIA [id number] [place] [address] [place] Eosinophils (Bld) [#/Vol] 0.00 10*3/uL Normal <0.46 [facility] Comment on above: Order Comment: Speci men Type: BLOOD SPECIMENOrdering Facility: [facility] Address: [address] [place] [address] Performed By: #### 5 7021-8 ####[facility] LABCLIA [id number] [address] LABCLIA [id number] [place] [address] [place] Eosinophils/100 WBC (Bld) 0.0 % Normal [facility] Comment on above: Order Comment: Speci men Type: BLOOD SPECIMENOrdering Facility: [facility] Address: [address] [place] [address] Performed By: #### 5 7021-8 ####[facility] LABCLIA [id number] [address] LABCLIA [id number] [place] [address] [place] Erythrocyte distribution width (RBC) [Ratio] 23.2 % High 11.5-15.0 [facility] Comment on above: Order Comment: Speci men Type: BLOOD SPECIMENOrdering Facility: [facility] Address: [address] [place] [address] Performed By: #### 5 7021-8 ####[facility] LABCLIA [id number] [address] LABCLIA [id number] [place] [address] [place] Hematocrit (Bld) [Volume fraction] 20.7 % Low 39.0-51.0 [facility] Comment on above: Order Comment: Speci men Type: BLOOD SPECIMENOrdering Facility: [facility] Address: [address] [place] [address] Performed By: #### 5 7021-8 ####[facility] LABCLIA [id number] [address] LABCLIA [id number] [place] [address] [place] Hemoglobin (Bld) [Mass/Vol] 6.5 g/dL Low 13.0-17.0 [facility] Comment on above: Order Comment: Speci men Type: BLOOD SPECIMENOrdering Facility: [facility] Address: [address] [place] [address] Performed By: #### 5 7021-8 ####[facility] LABCLIA [id number] [address] LABCLIA [id number] [place] [address] [place] Lymphocytes (Bld) [#/Vol] 0.82 10*3/uL Low 1.00-4.00 [facility] Comment on above: Order Comment: Speci men Type: BLOOD SPECIMENOrdering Facility: [facility] Address: [address] [place] [address] Performed By: #### 5 7021-8 ####[facility] LABCLIA [id number] [address] LABCLIA [id number] [place] [address] [place] Lymphocytes/100 WBC (Bld) 59.2 % Normal [facility] Comment on above: Order Comment: Speci men Type: BLOOD SPECIMENOrdering Facility: [facility] Address: [address] [place] [address] Performed By: #### 5 7021-8 ####[facility] LABCLIA [id number] [address] LABCLIA [id number] [place] [address] [place] MCH (RBC) [Entitic mass] 32.3 pg Normal 26.0-34.0 [facility] Comment on above: Order Comment: Speci men Type: BLOOD SPECIMENOrdering Facility: [facility] Address: [address] [place] [address] Performed By: #### 5 7021-8 ####[facility] LABCLIA [id number] [address] LABCLIA [id number] [place] [address] [place] MCHC (RBC) [Mass/Vol] 31.4 g/dL Normal 30.5-36.0 [facility] Comment on above: Order Comment: Speci men Type: BLOOD SPECIMENOrdering Facility: [facility] Address: [address] [place] [address] Performed By: #### 5 7021-8 ####[facility] LABCLIA [id number] [address] LABCLIA [id number] [place] [address] [place] MCV (RBC) [Entitic vol] 103.0 fL High 80.0-100.0 [facility] Comment on above: Order Comment: Speci men Type: BLOOD SPECIMENOrdering Facility: [facility] Address: [address] [place] [address] Performed By: #### 5 7021-8 ####[facility] LABCLIA [id number] [address] LABCLIA [id number] [place] [address] [place] Monocytes (Bld) [#/Vol] 0.09 10*3/uL Normal <0.87 [facility] Comment on above: Order Comment: Speci men Type: BLOOD SPECIMENOrdering Facility: [facility] Address: [address] [place], [place] [address] Performed By: #### 5 7021-8 ####[facility] LABCLIA [id number] [address] LABCLIA [id number] [place] [address] [place] Monocytes/100 WBC (Bld) 6.6 % Normal [facility] Comment on above: Order Comment: Speci men Type: BLOOD SPECIMENOrdering Facility: [facility] Address: [address] [place] [address] Performed By: #### 5 7021-8 ####[facility] LABCLIA [id number] [address] LABCLIA [id number] [place] [address] [place] MYELO% 0.4 % Normal [facility] Comment on above: Order Comment: Speci men Type: BLOOD SPECIMENOrdering Facility: [facility] Address: [address] Performed By: #### 5 7021-8 ####[facility] LABCLIA [id number] [address] LABCLIA [id number] [place] [address] [place] Neutrophils (Bld) [#/Vol] 0.45 10*3/uL Low 1.45-7.50 [facility] Comment on above: Order Comment: Speci men Type: BLOOD SPECIMENOrdering Facility: [facility] Address: [address] [place] [address] Performed By: #### 5 7021-8 ####[facility] LABCLIA [id number] [address] LABCLIA [id number] [place] [address] [place] Neutrophils/100 WBC (Bld) 32.5 % Normal [facility] Comment on above: Order Comment: Speci men Type: BLOOD SPECIMENOrdering Facility: [facility] Address: [address] [place] [address] Performed By: #### 5 7021-8 ####[facility] LABCLIA [id number] [address] LABCLIA [id number] [place] [address] [place] Nucleated RBC (Bld) [#/Vol] 10*3/uL Normal <0.01 [facility] Comment on above: Order Comment: Speci men Type: BLOOD SPECIMENOrdering Facility: [facility] Address: [address] [place] [address] Result Comment: This result was previously suppressed from the chart. Performed By: #### 5 7021-8 ####[facility] LABCLIA [id number] [address] LABCLIA [id number] [place] [address] [place] Nucleated RBC/100 WBC (Bld) [Ratio] 0.0 /100 WBC Normal [facility] Comment on above: Order Comment: Speci men Type: BLOOD SPECIMENOrdering Facility: [facility] Address: [address] [place] [address] Performed By: #### 5 7021-8 ####[facility] LABCLIA [id number] [address] LABCLIA [id number] [place] [address] [place] Ovalocytes LM Ql (Bld) Few Normal [facility] Comment on above: Order Comment: Speci men Type: BLOOD SPECIMENOrdering Facility: [facility] Address: [address] [place] [address] Performed By: #### 5 7021-8 ####[facility] LABCLIA [id number] [place] [address] LABCLIA [id number] [place] [address] [place] Platelet mean volume (Bld) [Entitic vol] Normal [facility] Comment on above: Order Comment: Speci men Type: BLOOD SPECIMENOrdering Facility: [facility] Address: [address] [place], [place] [address] Result Comment: Unab le to Report. Performed By: #### 5 7021-8 ####[facility] LABCLIA [id number] [address] LABCLIA [id number] [place] [address] [place] Platelets (Bld) [#/Vol] 36 10*3/uL Low 150-400 [facility] Comment on above: Order Comment: Speci men Type: BLOOD SPECIMENOrdering Facility: [facility] Address: [address] [place] [address] Result Comment: Samp le checked for clot Performed By: #### 5 7021-8 ####[facility] LABCLIA [id number] [address] LABCLIA [id number] [place] [address] [place] Platelets Estimate (Bld) [#/Vol] Decreased Normal [facility] Comment on above: Order Comment: Speci men Type: BLOOD SPECIMENOrdering Facility: [facility] Address: [address] [place] [address] Performed By: #### 5 7021-8 ####[facility] LABCLIA [id number] [address] LABCLIA [id number] [place] [address] [place] Polychromasia LM Ql (Bld) Slight Normal [facility] Comment on above: Order Comment: Speci men Type: BLOOD SPECIMENOrdering Facility: [facility] Address: [address] [place] [address] Performed By: #### 5 7021-8 ####[facility] LABCLIA [id number] [address] LABCLIA [id number] [place] [address] [place] RBC (Bld) [#/Vol] 2.01 10*6/uL Low 4.20-6.00 [facility] Comment on above: Order Comment: Speci men Type: BLOOD SPECIMENOrdering Facility: [facility] Address: [address] [place] [address] Performed By: #### 5 7021-8 ####[facility] LABCLIA [id number] [address] LABCLIA [id number] [place] [address] [place] RED CELL MORPH Reviewed: see result s of individual morphologies Normal [facility] Comment on above: Order Comment: Speci men Type: BLOOD SPECIMENOrdering Facility: [facility] Address: [address] [place] [address] Performed By: #### 5 7021-8 ####[facility] LABCLIA [id number] [address] LABCLIA [id number] [place] [address] [place] Variant lymphocytes/100 WBC (Bld) 0.0 % Normal [facility] Comment on above: Order Comment: Speci men Type: BLOOD SPECIMENOrdering Facility: [facility] Address: [address] [place] [address] Performed By: #### 5 7021-8 ####[facility] LABCLIA [id number] [place] [address] LABCLIA [id number] [place] [address] [place] WBC (Bld) [#/Vol] 1.39 10*3/uL Low 3.70-11.00 [facility] Comment on above: Order Comment: Speci men Type: BLOOD SPECIMENOrdering Facility: [facility] Address: [address] [address] Result Comment: [facility] le checked for clot Performed By: #### 5 7021-8 ####[facility] LABCLIA [id number] [address] LABCLIA [id number] [place] [address] [place] WBC Left Shift Ql (Bld) Present Normal [facility] Comment on above: Order Comment: Speci men Type: BLOOD SPECIMENOrdering Facility: [facility] Address: [address] [place] [address] Performed By: #### 5 7021-8 ####[facility] LABCLIA [id number] [place] [address] LABCLIA [id number] [place] [address] [place] CNOVSPon 06-03-2022 CNOVSP Normal [facility] CNPNon 06-03-2022 CNPN Normal [facility] Comprehensive metabolic 2000 panelon 06-03-2022 Albumin [Mass/Vol] 3.7 g/dL Low 3.9-4.9 [facility] Comment on above: Order Comment: Speci men Type: BLOOD SPECIMENOrdering Facility: [facility] Address: [address] [place] [address] Performed By: #### 2 4323-8, 2532-0 ####[facility] LABCLIA [id number] [place] [address] ALP [Catalytic activity/Vol] 105 U/L Normal 38-113 [facility] Comment on above: Order Comment: Speci men Type: BLOOD SPECIMENOrdering Facility: [facility] Address: [address] [address] Performed By: #### 2 432-8, 2531-0 ####[facility] LABCLIA [id number] [place] [address] ALT [Catalytic activity/Vol] 47 U/L Normal 10-54 [facility] Comment on above: Order Comment: Speci men Type: BLOOD SPECIMENOrdering Facility: [facility] Address: [address] [place] [address] Performed By: #### 2 4328, 2531-0 ####[facility] LABCLIA [id number] [place] [address] Anion gap [Moles/Vol] 10 mmol/L Normal 9-18 [facility] Comment on above: Order Comment: Speci men Type: BLOOD SPECIMENOrdering Facility: [facility] Address: [address] [address] Performed By: #### 2 43238, 0 ####[facility] LABCLIA [id number] [place] [address] AST [Catalytic activity/Vol] 23 U/L Normal 14-40 [facility] Comment on above: Order Comment: Speci men Type: BLOOD SPECIMENOrdering Facility: [facility] Address: [address] [address] Performed By: #### 2 4323-8, 2531-0 ####[facility] LABIA [id number] [place] [address] Bilirubin [Mass/Vol] 0.6 mg/dL Normal 0.2-1.3 [facility] Comment on above: Order Comment: Speci men Type: BLOOD SPECIMENOrdering Facility: [facility] Address: [address] [place] [address] Performed By: #### 2 432-8, 2531-0 ####[facility] LABCLIA [id number] [place] [address] Calcium [Mass/Vol] 8.8 mg/dL Normal 8.5-10.2 [facility] Comment on above: Order Comment: Speci men Type: BLOOD SPECIMENOrdering Facility: [facility] Address: [address] [place] [address] Performed By: #### 2 4328, 2531-0 ####[facility] LABCLIA [id number] [place] [address] Chloride [Moles/Vol] 103 mmol/L Normal 97-105 [facility] Comment on above: Order Comment: Speci men Type: BLOOD SPECIMENOrdering Facility: [facility] Address: [address] [place] [address] Performed By: #### 2 4328, 2531-0 ####[facility] LABCLIA [id number] [place] [address] CO2 [Moles/Vol] 27 mmol/L Normal 22-30 [facility] Comment on above: Order Comment: Speci men Type: BLOOD SPECIMENOrdering Facility: [facility] Address: [address] [place] [address] Performed By: #### 2 4328, 2531-0 ####[facility] LABCLIA [id number] [place] [address] Creatinine [Mass/Vol] 1.57 mg/dL High 0.73-1.22 [facility] Comment on above: Order Comment: Speci men Type: BLOOD SPECIMENOrdering Facility: [facility] Address: [address] [place] [address] Performed By: #### 2 4328, 2531-0 ####[facility] LABCLIA [id number] [place] [address] ESTIMATED GLOMERULAR FILTRATION RATE 43 mL/min/1.73m??? Low >=60 [facility] Comment on above: Order Comment: Davi avendaño Type: BLOOD SPECIMENOrdering Facility: [facility] Address: [address] [id number] Result Comment: Faye mated Glomerular Filtration Rate [...] GFR. Performed By: #### 2 4323-8, 2531-0 ####[facility] LABIA [id number] [place] [address] Glucose [Mass/Vol] 152 mg/dL High 74-99 [facility] Comment on above: Order Comment: Davi avendaño Type: BLOOD SPECIMENOrdering Facility: [facility] Address: [address] [id number] Result Comment: The [place] Diabetes Association (ADA) provides guidance for cutoff [...] Standards of Medical Care in Diabetes 2016, [place] [employer]. Diabetes Care. 2016.39(Suppl 1). Performed By: #### 2 4323-8, 2531-0 ####[facility] LABIA [id number] [place] [address] Potassium [Moles/Vol] 4.2 mmol/L Normal 3.7-5.1 [facility] Comment on above: Order Comment: Davi avendaño Type: BLOOD SPECIMENOrdering Facility: [facility] Address: [address] [address] Performed By: #### 2 4323-8, 2531-0 ####[facility] LABCLIA [id number] [place] [address] Protein [Mass/Vol] 6.2 g/dL Low 6.3-8.0 [facility] Comment on above: Order Comment: Speci men Type: BLOOD SPECIMENOrdering Facility: [facility] Address: [address] [address] Performed By: #### 2 432-8, 2531-0 ####[facility] LABCLIA [id number] [place] [address] Sodium [Moles/Vol] 140 mmol/L Normal 136-144 [facility] Comment on above: Order Comment: Speci men Type: BLOOD SPECIMENOrdering Facility: [facility] Address: [address] [place] [address] Performed By: #### 2 4328, 2531-0 ####[facility] LABCLIA [id number] [place] [address] Urea nitrogen [Mass/Vol] 24 mg/dL Normal 9-24 [facility] Comment on above: Order Comment: Speci men Type: BLOOD SPECIMENOrdering Facility: [facility] Address: [address] [place] [address] Performed By: #### 2 4328, 2531-0 ####[facility] LABCLIA [id number] [place] [address] LDH SerPl-cCncox branson 06-03-2022 LDH [Catalytic activity/Vol] 199 U/L Normal 135-225 [facility] Comment on above: Order Comment: Speci men Type: BLOOD SPECIMENOrdering Facility: [facility] Address: [address] [place] [address] Performed By: #### 2 4323-8, 2-0 ####[facility] LABCLIA [id number] [place] [address] PRBC LEUKOREDUCEDon 05-28-20 PRBC LEUKOREDUCED Cross Match Result Compatible Unit Blood Type A Pos Unit Number [id number] Status Information Transfused Product ID Red Blood Cells Product Code [id number] Normal [facility] Comment on above: Performed By: #### T NS, PRBC #### [facility] [address] [place], [place] [address] Dr. Benito To CBC W Auto Differential pane l (Bld)on 05-27-2022 Anisocytosis Ql (Bld) Present Normal [facility] Comment on above: Order Comment: Speci men Type: BLOOD SPECIMENOrdering Facility: [facility] Address: [address] [place] [address] Performed By: #### 5 7021-8 ####[facility] LABCLIA [id number] [address] LABCLIA [id number] [place] [address] Basophils (Bld) [#/Vol] 0.00 10*3/uL Normal <0.11 [facility] Comment on above: Order Comment: Speci men Type: BLOOD SPECIMENOrdering Facility: [facility] Address: [address] [place] [address] Performed By: #### 5 7021-8 ####[facility] LABCLIA [id number] [address] LABCLIA [id number] [place] [address] Basophils/100 WBC (Bld) 0.0 % Normal [facility] Comment on above: Order Comment: Speci men Type: BLOOD SPECIMENOrdering Facility: [facility] Address: [address] [place] [address] Performed By: #### 5 7021-8 ####[facility] LABCLIA [id number] [address] LABCLIA [id number] [place] [address] Dacrocytes LM Ql (Bld) Few Normal [facility] Comment on above: Order Comment: Speci men Type: BLOOD SPECIMENOrdering Facility: [facility] Address: [address] [place] [address] Performed By: #### 5 7021-8 ####[facility] LABCLIA [id number] [address] LABCLIA [id number] [place] [address] Differential cell count method Nom (Bld) Manual Normal [facility] Comment on above: Order Comment: Speci men Type: BLOOD SPECIMENOrdering Facility: [facility] Address: [address] [place] [address] Performed By: #### 5 7021-8 ####[facility] LABCLIA [id number] [address] LABCLIA [id number] [place] [address] Eosinophils (Bld) [#/Vol] 0.03 10*3/uL Normal <0.46 [facility] Comment on above: Order Comment: Speci men Type: BLOOD SPECIMENOrdering Facility: [facility] Address: [address] [place], [place] [address] Performed By: #### 5 7021-8 ####[facility] LABCLIA [id number] [address] LABCLIA [id number] [place] [address] Eosinophils/100 WBC (Bld) 3.0 % Normal [facility] Comment on above: Order Comment: Speci men Type: BLOOD SPECIMENOrdering Facility: [facility] Address: [address] [place] [address] Performed By: #### 5 7021-8 ####[facility] LABCLIA [id number] [address] LABCLIA [id number] [place] [address] Erythrocyte distribution width (RBC) [Ratio] 23.3 % High 11.5-15.0 [facility] Comment on above: Order Comment: Speci men Type: BLOOD SPECIMENOrdering Facility: [facility] Address: [address] Performed By: #### 5 7021-8 ####[facility] LABCLIA [id number] [address] LABCLIA [id number] [place] [address] Hematocrit (Bld) [Volume fraction] 23.6 % Low 39.0-51.0 [facility] Comment on above: Order Comment: Speci men Type: BLOOD SPECIMENOrdering Facility: [facility] Address: [address] Performed By: #### 5 7021-8 ####[facility] LABCLIA [id number] [address] LABCLIA [id number] [place] [address] Hemoglobin (Bld) [Mass/Vol] 7.6 g/dL Low 13.0-17.0 [facility] Comment on above: Order Comment: Speci men Type: BLOOD SPECIMENOrdering Facility: [facility] Address: [address] Performed By: #### 5 7021-8 ####[facility] LABCLIA [id number] [address] LABCLIA [id number] [place] [address] Lymphocytes (Bld) [#/Vol] 0.51 10*3/uL Low 1.00-4.00 [facility] Comment on above: Order Comment: Speci men Type: BLOOD SPECIMENOrdering Facility: [facility] Address: [address] [place] [address] Performed By: #### 5 7021-8 ####[facility] LABCLIA [id number] [address] LABCLIA [id number] [place] [address] Lymphocytes/100 WBC (Bld) 47.0 % Normal [facility] Comment on above: Order Comment: Speci men Type: BLOOD SPECIMENOrdering Facility: [facility] Address: [address] [place] [address] Performed By: #### 5 7021-8 ####[facility] LABCLIA [id number] [address] LABCLIA [id number] [place] [address] MCH (RBC) [Entitic mass] 33.0 pg Normal 26.0-34.0 [facility] Comment on above: Order Comment: Speci men Type: BLOOD SPECIMENOrdering Facility: [facility] Address: [address] [place], [place] [address] Performed By: #### 5 7021-8 ####[facility] LABCLIA [id number] [address] LABCLIA [id number] [place] [address] MCHC (RBC) [Mass/Vol] 32.2 g/dL Normal 30.5-36.0 [facility] Comment on above: Order Comment: Speci men Type: BLOOD SPECIMENOrdering Facility: [facility] Address: [address] [place] [address] Performed By: #### 5 7021-8 ####[facility] LABCLIA [id number] [address] LABCLIA [id number] [place] [address] MCV (RBC) [Entitic vol] 102.6 fL High 80.0-100.0 [facility] Comment on above: Order Comment: Speci men Type: BLOOD SPECIMENOrdering Facility: [facility] Address: [address] Performed By: #### 5 7021-8 ####[facility] LABCLIA [id number] [address] LABCLIA [id number] [place] [address] Monocytes (Bld) [#/Vol] 0.14 10*3/uL Normal <0.87 [facility] Comment on above: Order Comment: Speci men Type: BLOOD SPECIMENOrdering Facility: [facility] Address: [address] Performed By: #### 5 7021-8 ####[facility] LABCLIA [id number] [address] LABCLIA [id number] [place] [address] Monocytes/100 WBC (Bld) 13.0 % Normal [facility] Comment on above: Order Comment: Speci men Type: BLOOD SPECIMENOrdering Facility: [facility] Address: [address] [place] [address] Performed By: #### 5 7021-8 ####[facility] LABCLIA [id number] [address] LABCLIA [id number] [place] [address] Neutrophils (Bld) [#/Vol] 0.40 10*3/uL Low 1.45-7.50 [facility] Comment on above: Order Comment: Speci men Type: BLOOD SPECIMENOrdering Facility: [facility] Address: [address] [place] [address] Performed By: #### 5 7021-8 ####[facility] LABCLIA [id number] [address] LABCLIA [id number] [place] [address] Neutrophils/100 WBC (Bld) 37.0 % Normal [facility] Comment on above: Order Comment: Speci men Type: BLOOD SPECIMENOrdering Facility: [facility] Address: [address] [place] [address] Performed By: #### 5 7021-8 ####[facility] LABCLIA [id number] [address] LABCLIA [id number] [place] [address] Nucleated RBC (Bld) [#/Vol] 10*3/uL Normal <0.01 [facility] Comment on above: Order Comment: Speci men Type: BLOOD SPECIMENOrdering Facility: [facility] Address: [address] [place], [place] [address] Performed By: #### 5 7021-8 ####[facility] LABCLIA [id number] [address] LABCLIA [id number] [place] [address] Nucleated RBC/100 WBC (Bld) [Ratio] 0.0 /100 WBC Normal [facility] Comment on above: Order Comment: Speci men Type: BLOOD SPECIMENOrdering Facility: [facility] Address: [address] [place] [address] Performed By: #### 5 7021-8 ####[facility] LABCLIA [id number] [address] LABCLIA [id number] [place] [address] Ovalocytes LM Ql (Bld) Few Normal [facility] Comment on above: Order Comment: Speci men Type: BLOOD SPECIMENOrdering Facility: [facility] Address: [address] [place] [address] Performed By: #### 5 7021-8 ####[facility] LABCLIA [id number] [address] LABCLIA [id number] [place] [address] Platelet mean volume (Bld) [Entitic vol] Normal [facility] Comment on above: Order Comment: Speci men Type: BLOOD SPECIMENOrdering Facility: [facility] Address: [address] [place] [address] Result Comment: Unab le to Report. Performed By: #### 5 7021-8 ####[facility] LABCLIA [id number] [address] LABCLIA [id number] [place] [address] Platelets (Bld) [#/Vol] 52 10*3/uL Low 150-400 [facility] Comment on above: Order Comment: Speci men Type: BLOOD SPECIMENOrdering Facility: [facility] Address: [address] [place] [address] Result Comment: Resu lts checked and verified. No clot detected Performed By: #### 5 7021-8 ####[facility] LABCLIA [id number] [address] LABCLIA [id number] [place] [address] Platelets Estimate (Bld) [#/Vol] Decreased Normal [facility] Comment on above: Order Comment: Speci men Type: BLOOD SPECIMENOrdering Facility: [facility] Address: [address] [place] [address] Performed By: #### 5 7021-8 ####[facility] LABCLIA [id number] [address] LABCLIA [id number] [place] [address] RBC (Bld) [#/Vol] 2.30 10*6/uL Low 4.20-6.00 [facility] Comment on above: Order Comment: Speci men Type: BLOOD SPECIMENOrdering Facility: [facility] Address: [address] [place] [address] Performed By: #### 5 7021-8 ####[facility] LABCLIA [id number] [address] LABCLIA [id number] [place] [address] RBC FRAGMENTS Few Abnormal None Seen [facility] Comment on above: Order Comment: Speci men Type: BLOOD SPECIMENOrdering Facility: [facility] Address: [address] [place], [place] [address] Performed By: #### 5 7021-8 ####[facility] LABCLIA [id number] [address] LABCLIA [id number] [place] [address] RED CELL MORPH Reviewed: see result s of individual morphologies Normal [facility] Comment on above: Order Comment: Speci men Type: BLOOD SPECIMENOrdering Facility: [facility] Address: [address] [place], [place] [address] Performed By: #### 5 7021-8 ####[facility] LABCLIA [id number] [address] LABCLIA [id number] [place] [address] WBC (Bld) [#/Vol] 1.09 10*3/uL Low 3.70-11.00 [facility] Comment on above: Order Comment: Speci men Type: BLOOD SPECIMENOrdering Facility: [facility] Address: [address] [place] [address] Result Comment: Resu lts checked and verified. No clot detected Performed By: #### 5 7021-8 ####[facility] LABCLIA [id number] [address] LABCLIA [id number] [place] [address] Comprehensive metabolic 2000 panelon 05-27-2022 Albumin [Mass/Vol] 4.0 g/dL Normal 3.9-4.9 [facility] Comment on above: Order Comment: Speci men Type: BLOOD SPECIMENOrdering Facility: [facility] Address: [address] [place] [address] Performed By: #### 2 4323-8, 2-0 ####[facility] LABCLIA [id number] [place] [address] ALP [Catalytic activity/Vol] 105 U/L Normal 38-113 [facility] Comment on above: Order Comment: Speci men Type: BLOOD SPECIMENOrdering Facility: [facility] Address: [address] [place] [address] Performed By: #### 2 4323-8, 2532-0 ####[facility] LABCLIA [id number] [place] [address] ALT [Catalytic activity/Vol] 45 U/L Normal 10-54 [facility] Comment on above: Order Comment: Speci men Type: BLOOD SPECIMENOrdering Facility: [facility] Address: [address] [address] Performed By: #### 2 4323-8, 2531-0 ####[facility] LABCLIA [id number] [place] [address] Anion gap [Moles/Vol] 6 mmol/L Low 9-18 [facility] Comment on above: Order Comment: Speci men Type: BLOOD SPECIMENOrdering Facility: [facility] Address: [address] [place] [address] Performed By: #### 2 4328, 2531-0 ####[facility] LABCLIA [id number] [place] [address] AST [Catalytic activity/Vol] 18 U/L Normal 14-40 [facility] Comment on above: Order Comment: Speci men Type: BLOOD SPECIMENOrdering Facility: [facility] Address: [address] [place] [address] Performed By: #### 2 4328, 2531-0 ####[facility] LABCLIA [id number] [place] [address] Bilirubin [Mass/Vol] 0.9 mg/dL Normal 0.2-1.3 [facility] Comment on above: Order Comment: Speci men Type: BLOOD SPECIMENOrdering Facility: [facility] Address: [address] [place] [address] Performed By: #### 2 4328, 2531-0 ####[facility] LABCLIA [id number] [place] [address] Calcium [Mass/Vol] 8.7 mg/dL Normal 8.5-10.2 [facility] Comment on above: Order Comment: Speci men Type: BLOOD SPECIMENOrdering Facility: [facility] Address: [address] [place] [address] Performed By: #### 2 43238, 2531-0 ####[facility] LABCLIA [id number] [place] [address] Chloride [Moles/Vol] 106 mmol/L High 97-105 [facility] Comment on above: Order Comment: Speci men Type: BLOOD SPECIMENOrdering Facility: [facility] Address: [address] [place] [address] Performed By: #### 2 4323-8, 2532-0 ####[facility] LABCLIA [id number] [place] [address] CO2 [Moles/Vol] 33 mmol/L High 22-30 [facility] Comment on above: Order Comment: Speci men Type: BLOOD SPECIMENOrdering Facility: [facility] Address: [address] [place] [address] Performed By: #### 2 4323-8, 2532-0 ####[facility] LABCLIA [id number] [place] [address] Creatinine [Mass/Vol] 1.64 mg/dL High 0.73-1.22 [facility] Comment on above: Order Comment: Speci men Type: BLOOD SPECIMENOrdering Facility: [facility] Address: [address] [place] [address] Performed By: #### 2 4323-8, 253-0 ####[facility] LABCLIA [id number] [place] [address] ESTIMATED GLOMERULAR FILTRATION RATE 41 mL/min/1.73m??? Low >=60 [facility] Comment on above: Order Comment: Speci men Type: BLOOD SPECIMENOrdering Facility: [facility] Address: [address] [place] [address] Result Comment: Faye mated Glomerular Filtration Rate [...] GFR. Performed By: #### 2 4323-8, 0 ####[facility] LABCLIA [id number] [place] [address] Glucose [Mass/Vol] 130 mg/dL High 74-99 [facility] Comment on above: Order Comment: Speci men Type: BLOOD SPECIMENOrdering Facility: [facility] Address: [address] [place] [address] Result Comment: The [place] Diabetes [employer] (ADA) provides guidance for cutoff [...] Standards of Medical Care in Diabetes 2016, [place] [employer]. Diabetes Care. 2016.39(Suppl 1). Performed By: #### 2 4323-8, ####[facility] LABCLIA [id number] [place] [address] Potassium [Moles/Vol] 3.5 mmol/L Low 3.7-5.1 [facility] Comment on above: Order Comment: Speci men Type: BLOOD SPECIMENOrdering Facility: [facility] Address: [address] [id number] Performed By: #### 2 4328, 0 ####[facility] LABIA [id number] [place] [address] Protein [Mass/Vol] 6.4 g/dL Normal 6.3-8.0 [facility] Comment on above: Order Comment: Speci men Type: BLOOD SPECIMENOrdering Facility: [facility] Address: [address] [place], [place] [address] Performed By: #### 2 432-8, 2531-0 ####[facility] LABCLIA [id number] [place] [address] Sodium [Moles/Vol] 145 mmol/L High 136-144 [facility] Comment on above: Order Comment: Speci men Type: BLOOD SPECIMENOrdering Facility: [facility] Address: [address] [place] [address] Performed By: #### 2 4323-8, 2531-0 ####[facility] LABCLIA [id number] [place] [address] Urea nitrogen [Mass/Vol] 25 mg/dL High 9-24 [facility] Comment on above: Order Comment: Speci men Type: BLOOD SPECIMENOrdering Facility: [facility] Address: [address] [place] [address] Performed By: #### 2 4323-8, 2531-0 ####[facility] LABCLIA [id number] [place] [address] Albumin [Mass/Vol] 4.0 g/dL 3.9 - 4.9 g/dL [facility] ALP [Catalytic activity/Vol] 105 U/L 38 - 113 U/L [facility] ALT [Catalytic activity/Vol] 45 U/L 10 - 54 U/L [facility] Anion gap [Moles/Vol] 6 mmol/L Low 9 - 18 mmol/L [facility] AST [Catalytic activity/Vol] 18 U/L 14 - 40 U/L [facility] Bilirubin [Mass/Vol] 0.9 mg/dL 0.2 - 1.3 mg/dL [facility] Calcium [Mass/Vol] 8.7 mg/dL 8.5 - 10.2 mg/dL [facility] Chloride [Moles/Vol] 106 mmol/L High 97 - 105 mmol/L [facility] CO2 [Moles/Vol] 33 mmol/L High 22 - 30 mmol/L [facility] Creatinine [Mass/Vol] 1.64 mg/dL High 0.73 - 1.22 mg/dL [facility] Estimated Glomerular Filtration Rate 41 mL/min/1.73m Low >=60 mL/min/1.73m [facility] Glucose [Mass/Vol] 130 mg/dL High 74 - 99 mg/dL [facility] Potassium [Moles/Vol] 3.5 mmol/L Low 3.7 - 5.1 mmol/L [facility] Protein [Mass/Vol] 6.4 g/dL 6.3 - 8.0 g/dL [facility] Sodium [Moles/Vol] 145 mmol/L High 136 - 144 mmol/L [facility] Urea nitrogen [Mass/Vol] 25 mg/dL High 9 - 24 mg/dL [facility] LD LACTATE DEHYDROon 022 LDH [Catalytic activity/Vol] 209 U/L 135 - 225 U/L [facility] LDH SerPl-cCncon 05-27-2022 LDH [Catalytic activity/Vol] 209 U/L Normal 135-225 [facility] Comment on above: Order Comment: Speci men Type: BLOOD SPECIMENOrdering Facility: [facility] Address: [address] [place], [place] [address] Performed By: #### 2 4323-8, 2532-0 ####[facility] LABCLIA [id number] [place] [address] CNPNon 05-23-2022 CNPN Normal [facility] HEMOGLOBIN AND HEMATOCRITon 05-23-2022 Hematocrit (Bld) [Volume fraction] 22.7 % Critically low 42.0-54.0 [facility] Comment on above: Performed By: #### T NS, PRBC #### [facility] [address] [place] [address] Dr. Benito To Hemoglobin (Bld) [Mass/Vol] 7.3 g/dL Critically low 14.0-18.0 [facility] Comment on above: Performed By: #### T NS, PRBC #### [facility] [address] [place] [address] Dr. Benito To TYPE AND SCREENon 05-23-2022 TYPE AND SCREEN Negative Normal [facility] Comment on above: Performed By: #### T NS, PRBC #### [facility] [address] [place] [address] Dr. Benito oT HISTORY PHYSICALon HISTORY PHYSICAL HNO ID: [id number] Author: Elysia Esposito MD Service: ? Author Type: Physician Type: HANDP Filed: 05/26/2022 11:07 AM Note Text: Please see transcribed note Normal [facility] CBC W Auto Differential pane l (Bld)on 05-20-2022 Anisocytosis Ql (Bld) Present Normal [facility] Comment on above: Order Comment: Speci men Type: BLOOD SPECIMENOrdering Facility: [facility] Address: [address] [place] [address] Performed By: #### 5 7021-8 ####[facility] LABCLIA [id number] [address] LABCLIA [id number] [place] [address] Basophils (Bld) [#/Vol] 0.01 10*3/uL Normal <0.11 [facility] Comment on above: Order Comment: Speci men Type: BLOOD SPECIMENOrdering Facility: [facility] Address: [address] [place], [place] [address] Performed By: #### 5 7021-8 ####[facility] LABCLIA [id number] [address] LABCLIA [id number] [place] [address] Basophils/100 WBC (Bld) 0.5 % Normal [facility] Comment on above: Order Comment: Speci men Type: BLOOD SPECIMENOrdering Facility: [facility] Address: [address] [place], [place] [address] Performed By: #### 5 7021-8 ####[facility] LABCLIA [id number] [address] LABCLIA [id number] [place] [address] Dacrocytes LM Ql (Bld) Few Normal [facility] Comment on above: Order Comment: Speci men Type: BLOOD SPECIMENOrdering Facility: [facility] Address: [address] [place] [address] Performed By: #### 5 7021-8 ####[facility] LABCLIA [id number] [address] LABCLIA [id number] [place] [id number] Differential cell count method Nom (Bld) Manual Normal [facility] Comment on above: Order Comment: Speci men Type: BLOOD SPECIMENOrdering Facility: [facility] Address: [address] [place] [address] Performed By: #### 5 7021-8 ####[facility] LABCLIA [id number] [address] LABCLIA [id number] [place] [address] Eosinophils (Bld) [#/Vol] 0.03 10*3/uL Normal <0.46 [facility] Comment on above: Order Comment: Speci men Type: BLOOD SPECIMENOrdering Facility: [facility] Address: [address] [place] [address] Performed By: #### 5 7021-8 ####[facility] LABCLIA [id number] [address] LABCLIA [id number] [place] [address] Eosinophils/100 WBC (Bld) 1.5 % Normal [facility] Comment on above: Order Comment: Speci men Type: BLOOD SPECIMENOrdering Facility: [facility] Address: [address] [place] [address] Performed By: #### 5 7021-8 ####[facility] LABCLIA [id number] [address] [address] [facility] LABCLIA [id number] [place] [address] Erythrocyte distribution width (RBC) [Ratio] 23.9 % High 11.5-15.0 [facility] Comment on above: Order Comment: Speci men Type: BLOOD SPECIMENOrdering Facility: [facility] Address: [address] [place] [address] Performed By: #### 5 7021-8 ####[facility] LABCLIA [id number] [address] LABCLIA [id number] [place] [address] Hematocrit (Bld) [Volume fraction] 23.9 % Low 39.0-51.0 [facility] Comment on above: Order Comment: Speci men Type: BLOOD SPECIMENOrdering Facility: [facility] Address: [address] [place] [address] Performed By: #### 5 7021-8 ####[facility] LABCLIA [id number] [address] LABCLIA [id number] [place] [address] Hemoglobin (Bld) [Mass/Vol] 7.6 g/dL Low 13.0-17.0 [facility] Comment on above: Order Comment: Speci men Type: BLOOD SPECIMENOrdering Facility: [facility] Address: [address] [place] [address] Performed By: #### 5 7021-8 ####[facility] LABCLIA [id number] [address] LABCLIA [id number] [place] [address] Lymphocytes (Bld) [#/Vol] 0.71 10*3/uL Low 1.00-4.00 [facility] Comment on above: Order Comment: Speci men Type: BLOOD SPECIMENOrdering Facility: [facility] Address: [address] [place] [address] Performed By: #### 5 7021-8 ####[facility] LABCLIA [id number] [address] LABCLIA [id number] [place] [address] Lymphocytes/100 WBC (Bld) 40.8 % Normal [facility] Comment on above: Order Comment: Speci men Type: BLOOD SPECIMENOrdering Facility: [facility] Address: [address] [place] [address] Performed By: #### 5 7021-8 ####[facility] LABCLIA [id number] [address] LABCLIA [id number] [place] [address] MCH (RBC) [Entitic mass] 33.0 pg Normal 26.0-34.0 [facility] Comment on above: Order Comment: Speci men Type: BLOOD SPECIMENOrdering Facility: [facility] Address: [address] [place] [address] Performed By: #### 5 7021-8 ####[facility] LABCLIA [id number] [address] LABCLIA [id number] [place] [address] MCHC (RBC) [Mass/Vol] 31.8 g/dL Normal 30.5-36.0 [facility] Comment on above: Order Comment: Speci men Type: BLOOD SPECIMENOrdering Facility: [facility] Address: [address] [place], [place] [address] Performed By: #### 5 7021-8 ####[facility] LABCLIA [id number] [address] LABCLIA [id number] [place] [address] MCV (RBC) [Entitic vol] 103.9 fL High 80.0-100.0 [facility] Comment on above: Order Comment: Speci men Type: BLOOD SPECIMENOrdering Facility: [facility] Address: [address] [place], [place] [address] Performed By: #### 5 7021-8 ####[facility] LABCLIA [id number] [address] LABCLIA [id number] [place] [address] Monocytes (Bld) [#/Vol] 0.38 10*3/uL Normal <0.87 [facility] Comment on above: Order Comment: Speci men Type: BLOOD SPECIMENOrdering Facility: [facility] Address: [address] [place], [place] [address] Performed By: #### 5 7021-8 ####[facility] LABCLIA [id number] [address] LABCLIA [id number] [place] [address] Monocytes/100 WBC (Bld) 21.7 % Normal [facility] Comment on above: Order Comment: Speci men Type: BLOOD SPECIMENOrdering Facility: [facility] Address: [address] [place] [address] Performed By: #### 5 7021-8 ####[facility] LABCLIA [id number] [address] LABCLIA [id number] [place] [address] Neutrophils (Bld) [#/Vol] 0.61 10*3/uL Low 1.45-7.50 [facility] Comment on above: Order Comment: Speci men Type: BLOOD SPECIMENOrdering Facility: [facility] Address: [address] [place] [address] Performed By: #### 5 7021-8 ####[facility] LABCLIA [id number] [address] LABCLIA [id number] [place] [address] Neutrophils/100 WBC (Bld) 35.5 % Normal [facility] Comment on above: Order Comment: Speci men Type: BLOOD SPECIMENOrdering Facility: [facility] Address: [address] [place] [address] Performed By: #### 5 7021-8 ####[facility] LABCLIA [id number] [address] LABCLIA [id number] [place] [address] Nucleated RBC (Bld) [#/Vol] 10*3/uL Normal <0.01 [facility] Comment on above: Order Comment: Speci men Type: BLOOD SPECIMENOrdering Facility: [facility] Address: [address] [place] [address] Result Comment: This result was previously suppressed from the chart. Performed By: #### 5 7021-8 ####[facility] LABCLIA [id number] [address] LABCLIA [id number] [place] [address] Nucleated RBC/100 WBC (Bld) [Ratio] 0.0 /100 WBC Normal [facility] Comment on above: Order Comment: Speci men Type: BLOOD SPECIMENOrdering Facility: [facility] Address: [address] [place] [address] Performed By: #### 5 7021-8 ####[facility] LABCLIA [id number] [address] LABCLIA [id number] [place] [address] Ovalocytes LM Ql (Bld) Few Normal [facility] Comment on above: Order Comment: Speci men Type: BLOOD SPECIMENOrdering Facility: [facility] Address: [address] [place] [address] Performed By: #### 5 7021-8 ####[facility] LABCLIA [id number] [address] LABCLIA [id number] [place] [address] Platelet mean volume (Bld) [Entitic vol] Normal [facility] Comment on above: Order Comment: Speci men Type: BLOOD SPECIMENOrdering Facility: [facility] Address: [address] [place] [address] Result Comment: Unab le to Report. Performed By: #### 5 7021-8 ####[facility] LABCLIA [id number] [address] LABCLIA [id number] [place] [address] Platelets (Bld) [#/Vol] 69 10*3/uL Low 150-400 [facility] Comment on above: Order Comment: Speci men Type: BLOOD SPECIMENOrdering Facility: [facility] Address: [address] [place] [address] Result Comment: Resu lts checked and verified. No clot detected Performed By: #### 5 7021-8 ####[facility] LABCLIA [id number] [address] LABCLIA [id number] [place] [address] Platelets Estimate (Bld) [#/Vol] Decreased Normal [facility] Comment on above: Order Comment: Speci men Type: BLOOD SPECIMENOrdering Facility: [facility] Address: [address] [place] [address] Performed By: #### 5 7021-8 ####[facility] LABCLIA [id number] [address] LABCLIA [id number] [place] [address] Polychromasia LM Ql (Bld) Slight Normal [facility] Comment on above: Order Comment: Speci men Type: BLOOD SPECIMENOrdering Facility: [facility] Address: [address] [place] [address] Performed By: #### 5 7021-8 ####[facility] LABCLIA [id number] [address] LABCLIA [id number] [place] [address] RBC (Bld) [#/Vol] 2.30 10*6/uL Low 4.20-6.00 [facility] Comment on above: Order Comment: Speci men Type: BLOOD SPECIMENOrdering Facility: [facility] Address: [address] [place], [place] [address] Performed By: #### 5 7021-8 ####[facility] LABCLIA [id number] [address] LABCLIA [id number] [place] [address] RBC FRAGMENTS Few Abnormal None Seen [facility] Comment on above: Order Comment: Speci men Type: BLOOD SPECIMENOrdering Facility: [facility] Address: [address] [place], [place] [address] Performed By: #### 5 7021-8 ####[facility] LABCLIA [id number] [address] [address] [facility] LABCLIA [id number] [place] [address] RED CELL MORPH Reviewed: see result s of individual morphologies Normal [facility] Comment on above: Order Comment: Speci men Type: BLOOD SPECIMENOrdering Facility: [facility] Address: [address] [place] [address] Performed By: #### 5 7021-8 ####[facility] LABCLIA [id number] [address] LABCLIA [id number] [place] [address] Variant lymphocytes/100 WBC (Bld) 0.0 % Normal [facility] Comment on above: Order Comment: Speci men Type: BLOOD SPECIMENOrdering Facility: [facility] Address: [address] [place] [address] Performed By: #### 5 7021-8 ####[facility] LABCLIA [id number] [address] LABCLIA [id number] [place] [address] WBC (Bld) [#/Vol] 1.73 10*3/uL Low 3.70-11.00 [facility] Comment on above: Order Comment: Speci men Type: BLOOD SPECIMENOrdering Facility: [facility] Address: [address] [place] [address] Result Comment: Resu lts checked and verified. No clot detected Performed By: #### 5 7021-8 ####[facility] LABCLIA [id number] [address] LABCLIA [id number] [place] [address] CNOVSPon 05-20-2022 CNOVSP Normal [facility] CNPNon 05-20-2022 CNPN Normal [facility] Comprehensive metabolic 2000 panelon 05-20-2022 Albumin [Mass/Vol] 4.0 g/dL Normal 3.9-4.9 [facility] Comment on above: Order Comment: Speci men Type: BLOOD SPECIMENOrdering Facility: [facility] Address: [address] [place] [address] Performed By: #### 2 532-0, 04099-4 ####[facility] LABCLIA [id number] [place] [address] ALP [Catalytic activity/Vol] 101 U/L Normal 38-113 [facility] Comment on above: Order Comment: Speci men Type: BLOOD SPECIMENOrdering Facility: [facility] Address: [address] [place] [address] Performed By: #### 2 532-0, 95306-9 ####[facility] LABCLIA [id number] [place] [address] ALT [Catalytic activity/Vol] 43 U/L Normal 10-54 [facility] Comment on above: Order Comment: Speci men Type: BLOOD SPECIMENOrdering Facility: [facility] Address: [address] [place] [address] Performed By: #### 2 532-0, 48256-3 ####[facility] LABCLIA [id number] [place] [address] Anion gap [Moles/Vol] 7 mmol/L Low 9-18 [facility] Comment on above: Order Comment: Speci men Type: BLOOD SPECIMENOrdering Facility: [facility] Address: [address] [place] [address] Performed By: #### 2 532-0, 86153-8 ####[facility] LABCLIA [id number] [place] [address] AST [Catalytic activity/Vol] 25 U/L Normal 14-40 [facility] Comment on above: Order Comment: Speci men Type: BLOOD SPECIMENOrdering Facility: [facility] Address: [address] [place], [place] [address] Performed By: #### 2 532-0, 18135-1 ####[facility] LABCLIA [id number] [place] [address] Bilirubin [Mass/Vol] 0.7 mg/dL Normal 0.2-1.3 [facility] Comment on above: Order Comment: Speci men Type: BLOOD SPECIMENOrdering Facility: [facility] Address: [address] [place] [address] Performed By: #### 2 532-0, ####[facility] LABCLIA [id number] [place] [address] Calcium [Mass/Vol] 8.3 mg/dL Low 8.5-10.2 [facility] Comment on above: Order Comment: Speci men Type: BLOOD SPECIMENOrdering Facility: [facility] Address: [address] [place] [address] Performed By: #### 2 532-0, ####[facility] LABIA [id number] [place] [address] Chloride [Moles/Vol] 105 mmol/L Normal 97-105 [facility] Comment on above: Order Comment: Speci men Type: BLOOD SPECIMENOrdering Facility: [facility] Address: [address] [place], [place] [address] Performed By: #### 2 532-0, 54084-4 ####[facility] LABCLIA [id number] [place] [address] CO2 [Moles/Vol] 33 mmol/L High 22-30 [facility] Comment on above: Order Comment: Speci men Type: BLOOD SPECIMENOrdering Facility: [facility] Address: [address] [place], [place] [address] Performed By: #### 2 532-0, 82744-6 ####[facility] LABCLIA [id number] [place] [address] Creatinine [Mass/Vol] 1.69 mg/dL High 0.73-1.22 [facility] Comment on above: Order Comment: Davi avendaño Type: BLOOD SPECIMENOrdering Facility: [facility] Address: [address] [place] [address] Performed By: #### 2 532-0, 86402-8 ####[facility] LABCLIA [id number] [place] [address] ESTIMATED GLOMERULAR FILTRATION RATE 40 mL/min/1.73m??? Low >=60 [facility] Comment on above: Order Comment: Davi avendaño Type: BLOOD SPECIMENOrdering Facility: [facility] Address: [address] [place] [address] Result Comment: Faye mated Glomerular Filtration Rate [...] actual GFR. Performed By: #### 2 532-0, 16340-0 ####[facility] LABCLIA [id number] [place] [address] Glucose [Mass/Vol] 128 mg/dL High 74-99 [facility] Comment on above: Order Comment: Speci kateryna Type: BLOOD SPECIMENOrdering Facility: [facility] Address: [address] [place] [address] Result Comment: The [place] [employer] (ADA) provides guidance for cutoff [...] Standards of Medical Care in Diabetes 2016, [place] [employer]. Diabetes Care. 2016.39(Suppl 1). Performed By: #### 2 532-0, 26772-3 ####[facility] LABCLIA [id number] [place] [address] Potassium [Moles/Vol] 4.2 mmol/L Normal 3.7-5.1 [facility] Comment on above: Order Comment: Speci men Type: BLOOD SPECIMENOrdering Facility: [facility] Address: [address] [place] [address] Performed By: #### 2 532-0, 49269-5 ####[facility] LABIA [id number] [place] [address] Protein [Mass/Vol] 6.2 g/dL Low 6.3-8.0 [facility] Comment on above: Order Comment: Speci men Type: BLOOD SPECIMENOrdering Facility: [facility] Address: [address] [place] [address] Performed By: #### 2 532-0, ####[facility] LABIA [id number] [place] [address] Sodium [Moles/Vol] 145 mmol/L High 136-144 [facility] Comment on above: Order Comment: Speci men Type: BLOOD SPECIMENOrdering Facility: [facility] Address: [address] [place] [address] Performed By: #### 2 532-0, ####[facility] LABIA [id number] [place] [address] Urea nitrogen [Mass/Vol] 28 mg/dL High 9-24 [facility] Comment on above: Order Comment: Speci men Type: BLOOD SPECIMENOrdering Facility: [facility] Address: [address] [place] [address] Performed By: #### 2 532-0, 89060-7 ####[facility] LABCLIA [id number] [place] [id number] LDH SerPl-cCncon 05-20-2022 LDH [Catalytic activity/Vol] 223 U/L Normal 135-225 [facility] Comment on above: Order Comment: Speci men Type: BLOOD SPECIMENOrdering Facility: [facility] Address: [address] [place] [address] Performed By: #### 2 532-0, 71602-5 ####[facility] LABCLIA [id number] [place] [id number] CNPNon 05-14-2022 CNPN Normal [facility] PRBC LEUKOREDUCEDon 05-14-20 ABO and Rh group Nom (Bld) Cross Match Result Compatible Unit Blood Type A Neg Unit Number [id number] Status Information Transfused Product ID Red Blood Cells Product Code [id number] Cross Match Result Compatible Unit Blood Type A Neg Unit Number [id number] Status Information Transfused Product ID Red Blood Cells Product Code [id number] Normal [facility] Comment on above: Performed By: #### T NS, PRBC #### [facility] [address] [place] [address] Dr. Benito To CBC W Auto Differential pane l (Bld)on 05-13-2022 Anisocytosis Ql (Bld) Present Normal [facility] Comment on above: Order Comment: Speci men Type: BLOOD SPECIMENOrdering Facility: [facility] Address: [address] [place], [place] [address] Performed By: #### 5 7021-8 ####[facility] LABCLIA [id number] [place] [address] LABCLIA [id number] [facility] [place] [address] [place] Basophils (Bld) [#/Vol] 0.02 10*3/uL Normal <0.11 [facility] Comment on above: Order Comment: Speci men Type: BLOOD SPECIMENOrdering Facility: [facility] Address: [address] [place] [address] Performed By: #### 5 7021-8 ####[facility] LABCLIA [id number] [address] LABCLIA [id number] [place] [address] [place] Basophils/100 WBC (Bld) 0.9 % Normal [facility] Comment on above: Order Comment: Speci men Type: BLOOD SPECIMENOrdering Facility: [facility] Address: [address] [place] [address] Performed By: #### 5 7021-8 ####[facility] LABCLIA [id number] [address] LABCLIA [id number] [place] [address] [place] Differential cell count method Nom (Bld) Manual Normal [facility] Comment on above: Order Comment: Speci men Type: BLOOD SPECIMENOrdering Facility: [facility] Address: [address] [place] [address] Performed By: #### 5 7021-8 ####[facility] LABCLIA [id number] [address] LABCLIA [id number] [place] [address] [place] Eosinophils (Bld) [#/Vol] 0.00 10*3/uL Normal <0.46 [facility] Comment on above: Order Comment: Speci men Type: BLOOD SPECIMENOrdering Facility: [facility] Address: [address] [place] [address] Performed By: #### 5 7021-8 ####[facility] LABCLIA [id number] [place] [address] LABCLIA [id number] [place] [address] [place] Eosinophils/100 WBC (Bld) 0.0 % Normal [facility] Comment on above: Order Comment: Speci men Type: BLOOD SPECIMENOrdering Facility: [facility] Address: [address] [place] [address] Performed By: #### 5 7021-8 ####[facility] LABCLIA [id number] [address] LABCLIA [id number] [place] [address] [place] Erythrocyte distribution width (RBC) [Ratio] 23.4 % High 11.5-15.0 [facility] Comment on above: Order Comment: Speci men Type: BLOOD SPECIMENOrdering Facility: [facility] Address: [address] [place] [address] Performed By: #### 5 7021-8 ####[facility] LABCLIA [id number] [address] LABCLIA [id number] [place] [address] [place] Hematocrit (Bld) [Volume fraction] 26.2 % Low 39.0-51.0 [facility] Comment on above: Order Comment: Speci men Type: BLOOD SPECIMENOrdering Facility: [facility] Address: [address] [place], [place] [address] Performed By: #### 5 7021-8 ####[facility] LABCLIA [id number] [address] LABCLIA [id number] [place] [address] [place] Hemoglobin (Bld) [Mass/Vol] 8.3 g/dL Low 13.0-17.0 [facility] Comment on above: Order Comment: Speci men Type: BLOOD SPECIMENOrdering Facility: [facility] Address: [address] [place] [address] Performed By: #### 5 7021-8 ####[facility] LABCLIA [id number] [address] LABCLIA [id number] [place] [address] [place] Lymphocytes (Bld) [#/Vol] 0.86 10*3/uL Low 1.00-4.00 [facility] Comment on above: Order Comment: Speci men Type: BLOOD SPECIMENOrdering Facility: [facility] Address: [address] [place] [address] Performed By: #### 5 7021-8 ####[facility] LABCLIA [id number] [address] LABCLIA [id number] [place] [address] [place] Lymphocytes/100 WBC (Bld) 44.1 % Normal [facility] Comment on above: Order Comment: Speci men Type: BLOOD SPECIMENOrdering Facility: [facility] Address: [address] [place] [address] Performed By: #### 5 7021-8 ####[facility] LABCLIA [id number] [address] LABCLIA [id number] [place] [address] [place] MCH (RBC) [Entitic mass] 32.9 pg Normal 26.0-34.0 [facility] Comment on above: Order Comment: Speci men Type: BLOOD SPECIMENOrdering Facility: [facility] Address: [address] [place] [address] Performed By: #### 5 7021-8 ####[facility] LABCLIA [id number] [address] LABCLIA [id number] [place] [address] [place] MCHC (RBC) [Mass/Vol] 31.7 g/dL Normal 30.5-36.0 [facility] Comment on above: Order Comment: Speci men Type: BLOOD SPECIMENOrdering Facility: [facility] Address: [address] [place] [address] Performed By: #### 5 7021-8 ####[facility] LABCLIA [id number] [address] LABCLIA [id number] [place] [address] [place] MCV (RBC) [Entitic vol] 104.0 fL High 80.0-100.0 [facility] Comment on above: Order Comment: Speci men Type: BLOOD SPECIMENOrdering Facility: [facility] Address: [address] [place], [place] [address] Performed By: #### 5 7021-8 ####[facility] LABCLIA [id number] [address] LABCLIA [id number] [place] [address] [place] Metamyelocytes/100 WBC (Bld) 0.4 % Normal [facility] Comment on above: Order Comment: Speci men Type: BLOOD SPECIMENOrdering Facility: [facility] Address: [address] [place] [address] Performed By: #### 5 7021-8 ####[facility] LABCLIA [id number] [address] LABCLIA [id number] [place] [address] [place] Monocytes (Bld) [#/Vol] 0.43 10*3/uL Normal <0.87 [facility] Comment on above: Order Comment: Speci men Type: BLOOD SPECIMENOrdering Facility: [facility] Address: [address] [place] [address] Performed By: #### 5 7021-8 ####[facility] LABCLIA [id number] [address] LABCLIA [id number] [place] [address] [place] Monocytes/100 WBC (Bld) 21.8 % Normal [facility] Comment on above: Order Comment: Speci men Type: BLOOD SPECIMENOrdering Facility: [facility] Address: [address] [place] [address] Performed By: #### 5 7021-8 ####[facility] LABCLIA [id number] [address] LABCLIA [id number] [place] [address] [place] MYELO% 0.9 % Normal [facility] Comment on above: Order Comment: Speci men Type: BLOOD SPECIMENOrdering Facility: [facility] Address: [address] [place] [address] Performed By: #### 5 7021-8 ####[facility] LABCLIA [id number] [address] LABCLIA [id number] [place] [address] [place] Neutrophils (Bld) [#/Vol] 0.63 10*3/uL Low 1.45-7.50 [facility] Comment on above: Order Comment: Speci men Type: BLOOD SPECIMENOrdering Facility: [facility] Address: [address] [place] [address] Performed By: #### 5 7021-8 ####[facility] LABCLIA [id number] [address] [facility] LABCLIA [id number] [place] [address] [place] Neutrophils/100 WBC (Bld) 31.9 % Normal [facility] Comment on above: Order Comment: Speci men Type: BLOOD SPECIMENOrdering Facility: [facility] Address: [address] [place] [address] Performed By: #### 5 7021-8 ####[facility] LABCLIA [id number] [address] LABCLIA [id number] [place] [address] [place] Nucleated RBC (Bld) [#/Vol] 10*3/uL Normal <0.01 [facility] Comment on above: Order Comment: Speci men Type: BLOOD SPECIMENOrdering Facility: [facility] Address: [address] [place] [address] Result Comment: This result was previously suppressed from the chart. Performed By: #### 5 7021-8 ####[facility] LABCLIA [id number] [address] LABCLIA [id number] [place] [address] [place] Nucleated RBC/100 WBC (Bld) [Ratio] 0.0 /100 WBC Normal [facility] Comment on above: Order Comment: Speci men Type: BLOOD SPECIMENOrdering Facility: [facility] Address: [address] [place] [address] Performed By: #### 5 7021-8 ####[facility] LABCLIA [id number] [address] LABCLIA [id number] [place] [address] [place] Ovalocytes LM Ql (Bld) Few Normal [facility] Comment on above: Order Comment: Speci men Type: BLOOD SPECIMENOrdering Facility: [facility] Address: [address] [place] [address] Performed By: #### 5 7021-8 ####[facility] LABCLIA [id number] [address] LABCLIA [id number] [place] [address] [place] Platelet mean volume (Bld) [Entitic vol] 13.0 fL High 9.0-12.7 [facility] Comment on above: Order Comment: Speci men Type: BLOOD SPECIMENOrdering Facility: [facility] Address: [address] [place] [address] Performed By: #### 5 7021-8 ####[facility] LABCLIA [id number] [address] LABCLIA [id number] [place] [address] [place] Platelets (Bld) [#/Vol] 75 10*3/uL Low 150-400 [facility] Comment on above: Order Comment: Speci men Type: BLOOD SPECIMENOrdering Facility: [facility] Address: [address] [place] [address] Result Comment: Resu lts checked and verified. No clot detected. Sample checked for clot Performed By: #### 5 7021-8 ####[facility] LABCLIA [id number] [address] LABCLIA [id number] [place] [address] [place] Platelets Estimate (Bld) [#/Vol] Decreased Normal [facility] Comment on above: Order Comment: Speci men Type: BLOOD SPECIMENOrdering Facility: [facility] Address: [address] [place] [address] Performed By: #### 5 7021-8 ####[facility] LABCLIA [id number] [place] [id number] LABCLIA [id number] [place] [address] [place] Polychromasia LM Ql (Bld) Slight Normal [facility] Comment on above: Order Comment: Speci men Type: BLOOD SPECIMENOrdering Facility: [facility] Address: [address] [place] [address] Performed By: #### 5 7021-8 ####[facility] LABCLIA [id number] [address] LABCLIA [id number] [place] [address] [place] RBC (Bld) [#/Vol] 2.52 10*6/uL Low 4.20-6.00 [facility] Comment on above: Order Comment: Speci men Type: BLOOD SPECIMENOrdering Facility: [facility] Address: [address] [place], [place] [address] Performed By: #### 5 7021-8 ####[facility] LABCLIA [id number] [address] LABCLIA [id number] [place] [address] [place] RED CELL MORPH Reviewed: see result s of individual morphologies Normal [facility] Comment on above: Order Comment: Speci men Type: BLOOD SPECIMENOrdering Facility: [facility] Address: [address] [place] [address] Performed By: #### 5 7021-8 ####[facility] LABCLIA [id number] [address] LABCLIA [id number] [place] [address] [place] Variant lymphocytes/100 WBC (Bld) 0.0 % Normal [facility] Comment on above: Order Comment: Speci men Type: BLOOD SPECIMENOrdering Facility: [facility] Address: [address] [place] [address] Performed By: #### 5 7021-8 ####[facility] LABCLIA [id number] [address] LABCLIA [id number] [place] [address] [place] WBC (Bld) [#/Vol] 1.96 10*3/uL Low 3.70-11.00 [facility] Comment on above: Order Comment: Speci men Type: BLOOD SPECIMENOrdering Facility: [facility] Address: [address] [place] [address] Performed By: #### 5 7021-8 ####[facility] LABCLIA [id number] [address] LABCLIA [id number] [place] [address] [place] WBC Left Shift Ql (Bld) Present Normal [facility] Comment on above: Order Comment: Speci men Type: BLOOD SPECIMENOrdering Facility: [facility] Address: [address] [place] [address] Performed By: #### 5 7021-8 ####[facility] LABCLIA [id number] [address] LABCLIA [id number] [place] [address] [place] Comprehensive metabolic 2000 panelon 05-13-2022 Albumin [Mass/Vol] 3.9 g/dL Normal 3.9-4.9 [facility] Comment on above: Order Comment: Speci men Type: BLOOD SPECIMENOrdering Facility: [facility] Address: [address] [place] [address] Performed By: #### 2 532-0, 35745-5 ####[facility] LABCLIA [id number] [place] [address] ALP [Catalytic activity/Vol] 93 U/L Normal 38-113 [facility] Comment on above: Order Comment: Speci men Type: BLOOD SPECIMENOrdering Facility: [facility] Address: [address] [place] [address] Performed By: #### 2 532-0, 63533-4 ####[facility] LABCLIA [id number] [place] [address] ALT [Catalytic activity/Vol] 29 U/L Normal 10-54 [facility] Comment on above: Order Comment: Speci men Type: BLOOD SPECIMENOrdering Facility: [facility] Address: [address] [place] [address] Performed By: #### 2 532-0, ####[facility] LABCLIA [id number] [place] [address] Anion gap [Moles/Vol] 11 mmol/L Normal 9-18 [facility] Comment on above: Order Comment: Speci men Type: BLOOD SPECIMENOrdering Facility: [facility] Address: [address] [place] [address] Performed By: #### 2 532-0, ####[facility] LABCLIA [id number] [place] [address] AST [Catalytic activity/Vol] 14 U/L Normal 14-40 [facility] Comment on above: Order Comment: Speci men Type: BLOOD SPECIMENOrdering Facility: [facility] Address: [address] [place] [address] Performed By: #### 2 532-0, 26969-6 ####[facility] LABCLIA [id number] [place] [address] Bilirubin [Mass/Vol] 0.8 mg/dL Normal 0.2-1.3 [facility] Comment on above: Order Comment: Speci men Type: BLOOD SPECIMENOrdering Facility: [facility] Address: [address] [place] [address] Performed By: #### 2 532-0, 34766-8 ####[facility] LABCLIA [id number] [place] [address] Calcium [Mass/Vol] 8.8 mg/dL Normal 8.5-10.2 [facility] Comment on above: Order Comment: Speci men Type: BLOOD SPECIMENOrdering Facility: [facility] Address: [address] [place] [address] Performed By: #### 2 532-0, 90474-0 ####[facility] LABCLIA [id number] [place] [address] Chloride [Moles/Vol] 102 mmol/L Normal 97-105 [facility] Comment on above: Order Comment: Speci men Type: BLOOD SPECIMENOrdering Facility: [facility] Address: [address] [place] [address] Performed By: #### 2 532-0, 17160-0 ####[facility] LABCLIA [id number] [place] [address] CO2 [Moles/Vol] 28 mmol/L Normal 22-30 [facility] Comment on above: Order Comment: Speci men Type: BLOOD SPECIMENOrdering Facility: [facility] Address: [address] [place] [address] Performed By: #### 2 532-0, 74989-9 ####[facility] LABCLIA [id number] [place] [address] Creatinine [Mass/Vol] 1.63 mg/dL High 0.73-1.22 [facility] Comment on above: Order Comment: Speci men Type: BLOOD SPECIMENOrdering Facility: [facility] Address: [address] [place] [address] Performed By: #### 2 532-0, 57518-6 ####[facility] LABCLIA [id number] [place] [address] ESTIMATED GLOMERULAR FILTRATION RATE 42 mL/min/1.73m??? Low >=60 [facility] Comment on above: Order Comment: Davi avendaño Type: BLOOD SPECIMENOrdering Facility: [facility] Address: [address] [place] [address] Result Comment: Faye mated Glomerular Filtration Rate [...] actual GFR. Performed By: #### 2 532-0, 44386-7 ####[facility] LABCLIA [id number] [place] [address] Glucose [Mass/Vol] 191 mg/dL High 74-99 [facility] Comment on above: Order Comment: Davi avendaño Type: BLOOD SPECIMENOrdering Facility: [facility] Address: [address] [place] [address] Result Comment: The [place] [employer] (ADA) provides guidance for cutoff [...] Standards of Medical Care in Diabetes 2016, [place] [employer]. Diabetes Care. 2016.39(Suppl 1). Performed By: #### 2 532-0, 50129-7 ####[facility] LABCLIA [id number] [place] [address] Potassium [Moles/Vol] 3.8 mmol/L Normal 3.7-5.1 [facility] Comment on above: Order Comment: Speci men Type: BLOOD SPECIMENOrdering Facility: [facility] Address: [address] [place] [address] Performed By: #### 2 532-0, ####[facility] LABIA [id number] [place] [address] Protein [Mass/Vol] 6.0 g/dL Low 6.3-8.0 [facility] Comment on above: Order Comment: Speci men Type: BLOOD SPECIMENOrdering Facility: [facility] Address: [address] [place] [address] Performed By: #### 2 532-0, ####[facility] LABIA [id number] [place] [address] Sodium [Moles/Vol] 141 mmol/L Normal 136-144 [facility] Comment on above: Order Comment: Speci men Type: BLOOD SPECIMENOrdering Facility: [facility] Address: [address] [place] [address] Performed By: #### 2 532-0, ####[facility] LABIA [id number] [place] [address] Urea nitrogen [Mass/Vol] 22 mg/dL Normal 9-24 [facility] Comment on above: Order Comment: Speci men Type: BLOOD SPECIMENOrdering Facility: [facility] Address: [address] [place] [address] Performed By: #### 2 532-0, 96086-2 ####[facility] LABIA [id number] [place] [address] LDH SerPl-cCncox branson 05-13-2022 LDH [Catalytic activity/Vol] 218 U/L Normal 135-225 [facility] Comment on above: Order Comment: Speci men Type: BLOOD SPECIMENOrdering Facility: [facility] Address: [address] [place] [address] Performed By: #### 2 532-0, 75124-0 ####[facility] LABCLIA [id number] [place] [id number] PRBC LEUKOREDUCEDon 05-08-20 ABO and Rh group Nom (Bld) Cross Match Result Compatible Unit Blood Type A Pos Unit Number [id number] Status Information Transfused Product ID Red Blood Cells Product Code [id number] Cross Match Result Compatible Unit Blood Type A Pos Unit Number [id number] Status Information Transfused Product ID Red Blood Cells Product Code [id number] Normal [facility] Comment on above: Performed By: #### H H #### [facility] [address] [place] [address] Dr. Benito To HEMOGLOBIN AND HEMATOCRITon 05-07-2022 Hematocrit (Bld) [Volume fraction] 24.6 % Critically low 42.0-54.0 [facility] Comment on above: Performed By: #### T NS, PRBC #### [facility] [address] [place] [address] Dr. Benito To Hemoglobin (Bld) [Mass/Vol] 7.6 g/dL Critically low 14.0-18.0 [facility] Comment on above: Performed By: #### T NS, PRBC #### [facility] [address] [place] [address] Dr. Benito To TYPE AND SCREENon 05-07-2022 TYPE AND SCREEN Negative Normal [facility] Comment on above: Performed By: #### T NS, PRBC #### [facility] [address] [place] [address] Dr. Benito To CBC W Auto Differential pane l (Bld)on 05-06-2022 Anisocytosis Ql (Bld) Present Normal [facility] Comment on above: Order Comment: Speci men Type: BLOOD SPECIMENOrdering Facility: [facility] Address: [address] [place] [address] Performed By: #### 5 7021-8 ####[facility] LABCLIA [id number] [place] [address] LABCLIA [id number] [place] [address] [place] Basophils/100 WBC (Bld) 5.0 % Normal [facility] Comment on above: Order Comment: Speci men Type: BLOOD SPECIMENOrdering Facility: [facility] Address: [address] [place] [address] Performed By: #### 5 7021-8 ####[facility] LABCLIA [id number] [address] LABCLIA [id number] [place] [address] [place] Eosinophils (Bld) [#/Vol] 0.02 10*3/uL Normal <0.46 [facility] Comment on above: Order Comment: Speci men Type: BLOOD SPECIMENOrdering Facility: [facility] Address: [address] [place] [address] Performed By: #### 5 7021-8 ####[facility] LABCLIA [id number] [address] LABCLIA [id number] [place] [address] [place] Eosinophils/100 WBC (Bld) 1.0 % Normal [facility] Comment on above: Order Comment: Speci men Type: BLOOD SPECIMENOrdering Facility: [facility] Address: [address] [place], [place] [address] Performed By: #### 5 7021-8 ####[facility] LABCLIA [id number] [address] LABCLIA [id number] [place] [address] [place] Erythrocyte distribution width (RBC) [Ratio] 24.7 % High 11.5-15.0 [facility] Comment on above: Order Comment: Speci men Type: BLOOD SPECIMENOrdering Facility: [facility] Address: [address] [place], [place] [address] Performed By: #### 5 7021-8 ####[facility] LABCLIA [id number] [address] LABCLIA [id number] [place] [address] [place] Giant platelets LM Ql (Bld) Occasional Normal [facility] Comment on above: Order Comment: Speci men Type: BLOOD SPECIMENOrdering Facility: [facility] Address: [address] [place], [place] [address] Performed By: #### 5 7021-8 ####[facility] LABCLIA [id number] [address] LABCLIA [id number] [place] [address] [place] Hematocrit (Bld) [Volume fraction] 23.3 % Low 39.0-51.0 [facility] Comment on above: Order Comment: Speci men Type: BLOOD SPECIMENOrdering Facility: [facility] Address: [address] [place], [place] [address] Performed By: #### 5 7021-8 ####[facility] LABCLIA [id number] [address] LABCLIA [id number] [place] [address] [place] Hemoglobin (Bld) [Mass/Vol] 7.4 g/dL Low 13.0-17.0 [facility] Comment on above: Order Comment: Speci men Type: BLOOD SPECIMENOrdering Facility: [facility] Address: [address] [place], [place] [address] Performed By: #### 5 7021-8 ####[facility] LABCLIA [id number] [address] LABCLIA [id number] [place] [address] [place] Lymphocytes (Bld) [#/Vol] 1.05 10*3/uL Normal 1.00-4.00 [facility] Comment on above: Order Comment: Speci men Type: BLOOD SPECIMENOrdering Facility: [facility] Address: [address] [place] [address] Performed By: #### 5 7021-8 ####[facility] LABCLIA [id number] [address] LABCLIA [id number] [place] [address] [place] Lymphocytes/100 WBC (Bld) 53.0 % Normal [facility] Comment on above: Order Comment: Speci men Type: BLOOD SPECIMENOrdering Facility: [facility] Address: [address] [place] [address] Performed By: #### 5 7021-8 ####[facility] LABCLIA [id number] [address] LABCLIA [id number] [place] [address] [place] MCH (RBC) [Entitic mass] 33.2 pg Normal 26.0-34.0 [facility] Comment on above: Order Comment: Speci men Type: BLOOD SPECIMENOrdering Facility: [facility] Address: [address] [place], [place] [address] Performed By: #### 5 7021-8 ####[facility] LABCLIA [id number] [address] LABCLIA [id number] [place] [address] [place] MCHC (RBC) [Mass/Vol] 31.8 g/dL Normal 30.5-36.0 [facility] Comment on above: Order Comment: Speci men Type: BLOOD SPECIMENOrdering Facility: [facility] Address: [address] [place] [address] Performed By: #### 5 7021-8 ####[facility] LABCLIA [id number] [address] LABCLIA [id number] [place] [address] [place] MCV (RBC) [Entitic vol] 104.5 fL High 80.0-100.0 [facility] Comment on above: Order Comment: Speci men Type: BLOOD SPECIMENOrdering Facility: [facility] Address: [address] [place], [place] [address] Performed By: #### 5 7021-8 ####[facility] LABCLIA [id number] [address] LABCLIA [id number] [place] [address] [place] MYELO% 1.0 % Normal [facility] Comment on above: Order Comment: Speci men Type: BLOOD SPECIMENOrdering Facility: [facility] Address: [address] [place], [place] [address] Performed By: #### 5 7021-8 ####[facility] LABCLIA [id number] [address] LABCLIA [id number] [place] [address] [place] Neutrophils (Bld) [#/Vol] 0.40 10*3/uL Low 1.45-7.50 [facility] Comment on above: Order Comment: Speci men Type: BLOOD SPECIMENOrdering Facility: [facility] Address: [address] [place] [address] Performed By: #### 5 7021-8 ####[facility] LABCLIA [id number] [address] LABCLIA [id number] [place] [address] [place] Neutrophils/100 WBC (Bld) 20.0 % Normal [facility] Comment on above: Order Comment: Speci men Type: BLOOD SPECIMENOrdering Facility: [facility] Address: [address] [place] [address] Performed By: #### 5 7021-8 ####[facility] LABCLIA [id number] [address] LABCLIA [id number] [place] [address] [place] Nucleated RBC/100 WBC (Bld) [Ratio] 0.0 /100 WBC Normal [facility] Comment on above: Order Comment: Speci men Type: BLOOD SPECIMENOrdering Facility: [facility] Address: [address] [place], [place] [address] Performed By: #### 5 7021-8 ####[facility] LABCLIA [id number] [address] LABCLIA [id number] [place] [address] [place] Ovalocytes LM Ql (Bld) Few Normal [facility] Comment on above: Order Comment: Speci men Type: BLOOD SPECIMENOrdering Facility: [facility] Address: [address] [place] [address] Performed By: #### 5 7021-8 ####[facility] LABCLIA [id number] [address] LABCLIA [id number] [place] [address] [place] PLATELET ESTIMATE Decreased Normal [facility] Comment on above: Order Comment: Speci men Type: BLOOD SPECIMENOrdering Facility: [facility] Address: [address] [place] [address] Performed By: #### 5 7021-8 ####[facility] LABCLIA [id number] [place] [address] LABCLIA [id number] [place] [address] [place] Platelet mean volume (Bld) [Entitic vol] Normal [facility] Comment on above: Order Comment: Speci men Type: BLOOD SPECIMENOrdering Facility: [facility] Address: [address] [place] [address] Result Comment: Unab le to Report. Performed By: #### 5 7021-8 ####[facility] LABCLIA [id number] [address] LABCLIA [id number] [place] [address] [place] Platelets (Bld) [#/Vol] 65 10*3/uL Low 150-400 [facility] Comment on above: Order Comment: Speci men Type: BLOOD SPECIMENOrdering Facility: [facility] Address: [address] [place], [place] [address] Result Comment: Samp le checked for clot Performed By: #### 5 7021-8 ####[facility] LABCLIA [id number] [address] LABCLIA [id number] [place] [address] [place] RBC (Bld) [#/Vol] 2.23 10*6/uL Low 4.20-6.00 [facility] Comment on above: Order Comment: Speci men Type: BLOOD SPECIMENOrdering Facility: [facility] Address: [address] [place] [address] Performed By: #### 5 7021-8 ####[facility] LABCLIA [id number] [address] LABCLIA [id number] [place] [address] [place] RBC FRAGMENTS Few Abnormal None Seen [facility] Comment on above: Order Comment: Speci men Type: BLOOD SPECIMENOrdering Facility: [facility] Address: [address] [place] [address] Performed By: #### 5 7021-8 ####[facility] LABCLIA [id number] [address] LABCLIA [id number] [place] [address] [place] RED CELL MORPH Reviewed: see result s of individual morphologies Normal [facility] Comment on above: Order Comment: Speci men Type: BLOOD SPECIMENOrdering Facility: [facility] Address: [address] [place] [address] Performed By: #### 5 7021-8 ####[facility] LABCLIA [id number] [address] LABCLIA [id number] [place] [address] [place] Variant lymphocytes/100 WBC (Bld) 0.0 % Normal [facility] Comment on above: Order Comment: Speci men Type: BLOOD SPECIMENOrdering Facility: [facility] Address: [address] [place], [place] [address] Performed By: #### 5 7021-8 ####[facility] LABCLIA [id number] [address] LABCLIA [id number] [place] [address] [place] WAM - ABS BASO 0.10 k/uL Normal <0.11 [facility] Comment on above: Order Comment: Speci men Type: BLOOD SPECIMENOrdering Facility: [facility] Address: [address] [place], [place] [address] Performed By: #### 5 7021-8 ####[facility] LABCLIA [id number] [place] [id number] LABCLIA [id number] [place] [address] [place] WAM - ABS MONO 0.40 k/uL Normal <0.87 [facility] Comment on above: Order Comment: Speci men Type: BLOOD SPECIMENOrdering Facility: [facility] Address: [address] [place] [address] Performed By: #### 5 7021-8 ####[facility] LABCLIA [id number] [address] LABCLIA [id number] [place] [address] [place] WAM - MONO% 20.0 % Normal [facility] Comment on above: Order Comment: Speci men Type: BLOOD SPECIMENOrdering Facility: [facility] Address: [address] [place] [address] Performed By: #### 5 7021-8 ####[facility] LABCLIA [id number] [address] LABCLIA [id number] [place] [address] [place] WAM ABSOLUTE NRBC <0.01 Normal <0.01 [facility] Comment on above: Order Comment: Speci men Type: BLOOD SPECIMENOrdering Facility: [facility] Address: [address] [place] [address] Result Comment: This result was previously suppressed from the chart. Performed By: #### 5 7021-8 ####[facility] LABCLIA [id number] [address] LABCLIA [id number] [place] [address] [place] WBC (Bld) [#/Vol] 1.98 10*3/uL Low 3.70-11.00 [facility] Comment on above: Order Comment: Speci men Type: BLOOD SPECIMENOrdering Facility: [facility] Address: [address] [place], [place] [address] Performed By: #### 5 7021-8 ####[facility] LABCLIA [id number] [address] LABCLIA [id number] [place] [address] [place] WBC Left Shift Ql (Bld) Present Normal [facility] Comment on above: Order Comment: Speci men Type: BLOOD SPECIMENOrdering Facility: [facility] Address: [address] [place] [address] Performed By: #### 5 7021-8 ####[facility] LABCLIA [id number] [address] LABCLIA [id number] [place] [address] [place] CNOVSPon 05-06-2022 CNOVSP Normal [facility] CNPNon 05-06-2022 CNPN Normal [facility] Comprehensive metabolic 2000 panelon 05-06-2022 Albumin [Mass/Vol] 3.9 g/dL Normal 3.9-4.9 [facility] Comment on above: Order Comment: Speci men Type: BLOOD SPECIMENOrdering Facility: [facility] Address: [address] [place], [place] [address] Performed By: #### 2 4323-8, 253-0 ####[facility] LABCLIA [id number] [place] [id number] ALP [Catalytic activity/Vol] 87 U/L Normal 38-113 [facility] Comment on above: Order Comment: Speci men Type: BLOOD SPECIMENOrdering Facility: [facility] Address: [address] [place], [place] [address] Performed By: #### 2 4323-8, 2532-0 ####[facility] LABCLIA [id number] [place] [address] ALT [Catalytic activity/Vol] 25 U/L Normal 10-54 [facility] Comment on above: Order Comment: Speci men Type: BLOOD SPECIMENOrdering Facility: [facility] Address: [address] [place] [address] Performed By: #### 2 4323-8, 2531-0 ####[facility] LABCLIA [id number] [place] [address] Anion gap [Moles/Vol] 12 mmol/L Normal 9-18 [facility] Comment on above: Order Comment: Speci men Type: BLOOD SPECIMENOrdering Facility: [facility] Address: [address] [place] [address] Performed By: #### 2 4323-8, 2531-0 ####[facility] LABCLIA [id number] [place] [address] AST [Catalytic activity/Vol] 13 U/L Low 14-40 [facility] Comment on above: Order Comment: Speci men Type: BLOOD SPECIMENOrdering Facility: [facility] Address: [address] [place] [address] Performed By: #### 2 4323-8, 2531-0 ####[facility] LABCLIA [id number] [place] [address] Bilirubin [Mass/Vol] 0.7 mg/dL Normal 0.2-1.3 [facility] Comment on above: Order Comment: Speci men Type: BLOOD SPECIMENOrdering Facility: [facility] Address: [address] [place], [place] [address] Performed By: #### 2 4323-8, 2532-0 ####[facility] LABCLIA [id number] [place] [address] Calcium [Mass/Vol] 8.5 mg/dL Normal 8.5-10.2 [facility] Comment on above: Order Comment: Speci men Type: BLOOD SPECIMENOrdering Facility: [facility] Address: [address] [place], [place] [address] Performed By: #### 2 4323-8, 253-0 ####[facility] LABCLIA [id number] [place] [address] Chloride [Moles/Vol] 102 mmol/L Normal 97-105 [facility] Comment on above: Order Comment: Speci men Type: BLOOD SPECIMENOrdering Facility: [facility] Address: [address] [place], [place] [address] Performed By: #### 2 4323-8, 253-0 ####[facility] LABCLIA [id number] [place] [address] CO2 [Moles/Vol] 27 mmol/L Normal 22-30 [facility] Comment on above: Order Comment: Speci men Type: BLOOD SPECIMENOrdering Facility: [facility] Address: [address] [place] [address] Performed By: #### 2 4323-8, 253-0 ####[facility] LABIA [id number] [place] [address] Creatinine [Mass/Vol] 1.97 mg/dL High 0.73-1.22 [facility] Comment on above: Order Comment: Speci men Type: BLOOD SPECIMENOrdering Facility: [facility] Address: [address] [place], [place] [address] Performed By: #### 2 4323-8, 2532-0 ####[facility] LABCLIA [id number] [place] [address] ESTIMATED GLOMERULAR FILTRATION RATE 33 mL/min/1.73m??? Low >=60 [facility] Comment on above: Order Comment: Speci men Type: BLOOD SPECIMENOrdering Facility: [facility] Address: [address] [place] [address] Result Comment: Faye mated Glomerular Filtration Rate [...] GFR. Performed By: #### 2 4323-8, 2531-0 ####[facility] LABCLIA [id number] [place] [address] Glucose [Mass/Vol] 132 mg/dL High 74-99 [facility] Comment on above: Order Comment: Davi avendaño Type: BLOOD SPECIMENOrdering Facility: [facility] Address: [address] [place], [place] [address] Result Comment: The [place] [employer] (ADA) provides guidance for cutoff [...] Standards of Medical Care in Diabetes 2016, [place] [employer]. Diabetes Care. 2016.39(Suppl 1). Performed By: #### 2 4328, ####[facility] LABCLIA [id number] [place] [address] Potassium [Moles/Vol] 3.9 mmol/L Normal 3.7-5.1 [facility] Comment on above: Order Comment: Davi avendaño Type: BLOOD SPECIMENOrdering Facility: [facility] Address: [address] [place] [address] Performed By: #### 2 4323-8, 2531-0 ####[facility] LABCLIA [id number] [place] [address] Protein [Mass/Vol] 6.1 g/dL Low 6.3-8.0 [facility] Comment on above: Order Comment: Speci men Type: BLOOD SPECIMENOrdering Facility: [facility] Address: [address] [place] [address] Performed By: #### 2 4323-8, 2532-0 ####[facility] LABCLIA [id number] [place] [address] Sodium [Moles/Vol] 141 mmol/L Normal 136-144 [facility] Comment on above: Order Comment: Speci men Type: BLOOD SPECIMENOrdering Facility: [facility] Address: [address] [place] [address] Performed By: #### 2 4323-8, 2531-0 ####[facility] LABCLIA [id number] [place] [address] Urea nitrogen [Mass/Vol] 27 mg/dL High 9-24 [facility] Comment on above: Order Comment: Speci men Type: BLOOD SPECIMENOrdering Facility: [facility] Address: [address] [place] [address] Performed By: #### 2 4323-8, 2531-0 ####[facility] LABCLIA [id number] [place] [address] LDH SerPl-cCncon 05-06-2022 LDH [Catalytic activity/Vol] 222 U/L Normal 135-225 [facility] Comment on above: Order Comment: Speci men Type: BLOOD SPECIMENOrdering Facility: [facility] Address: [address] [place] [address] Performed By: #### 2 4323-8, 253-0 ####[facility] LABIA [id number] [place] [address] CBC W Auto Differential pane l (Bld)on 04-29-2022 Anisocytosis Ql (Bld) Present Normal [facility] Comment on above: Order Comment: Speci men Type: BLOOD SPECIMENOrdering Facility: [facility] Address: [address] [place], [place] [address] Performed By: #### 5 7021-8 ####[facility] LABCLIA [id number] [address] LABCLIA [id number] [place] [address] [place] Basophils/100 WBC (Bld) 0.0 % Normal [facility] Comment on above: Order Comment: Speci men Type: BLOOD SPECIMENOrdering Facility: [facility] Address: [address] [place], [place] [address] Performed By: #### 5 7021-8 ####[facility] LABCLIA [id number] [address] LABCLIA [id number] [place] [address] [place] Dacrocytes LM Ql (Bld) Few Normal [facility] Comment on above: Order Comment: Speci men Type: BLOOD SPECIMENOrdering Facility: [facility] Address: [address] [place] [address] Performed By: #### 5 7021-8 ####[facility] LABCLIA [id number] [address] LABCLIA [id number] [place] [address] [place] Differential cell count method Nom (Bld) Manual Normal [facility] Comment on above: Order Comment: Speci men Type: BLOOD SPECIMENOrdering Facility: [facility] Address: [address] [place] [address] Performed By: #### 5 7021-8 ####[facility] LABCLIA [id number] [address] LABCLIA [id number] [place] [address] [place] Eosinophils (Bld) [#/Vol] 0.02 10*3/uL Normal <0.46 [facility] Comment on above: Order Comment: Speci men Type: BLOOD SPECIMENOrdering Facility: [facility] Address: [address] [place] [address] Performed By: #### 5 7021-8 ####[facility] LABCLIA [id number] [address] LABCLIA [id number] [place] [address] [place] Eosinophils/100 WBC (Bld) 1.0 % Normal [facility] Comment on above: Order Comment: Speci men Type: BLOOD SPECIMENOrdering Facility: [facility] Address: [address] [place] [address] Performed By: #### 5 7021-8 ####[facility] LABCLIA [id number] [address] LABCLIA [id number] [place] [address] [place] Erythrocyte distribution width (RBC) [Ratio] 24.4 % High 11.5-15.0 [facility] Comment on above: Order Comment: Speci men Type: BLOOD SPECIMENOrdering Facility: [facility] Address: [address] [place], [place] [address] Performed By: #### 5 7021-8 ####[facility] LABCLIA [id number] [address] LABCLIA [id number] [place] [address] [place] Hematocrit (Bld) [Volume fraction] 26.7 % Low 39.0-51.0 [facility] Comment on above: Order Comment: Speci men Type: BLOOD SPECIMENOrdering Facility: [facility] Address: [address] [place] [address] Performed By: #### 5 7021-8 ####[facility] LABCLIA [id number] [address] LABCLIA [id number] [place] [address] [place] Hemoglobin (Bld) [Mass/Vol] 8.4 g/dL Low 13.0-17.0 [facility] Comment on above: Order Comment: Speci men Type: BLOOD SPECIMENOrdering Facility: [facility] Address: [address] [place], [place] [address] Performed By: #### 5 7021-8 ####[facility] LABCLIA [id number] [address] LABCLIA [id number] [place] [address] [place] Lymphocytes (Bld) [#/Vol] 0.79 10*3/uL Low 1.00-4.00 [facility] Comment on above: Order Comment: Speci men Type: BLOOD SPECIMENOrdering Facility: [facility] Address: [address] [place], [place] [address] Performed By: #### 5 7021-8 ####[facility] LABCLIA [id number] [address] LABCLIA [id number] [place] [address] [place] Lymphocytes/100 WBC (Bld) 43.0 % Normal [facility] Comment on above: Order Comment: Speci men Type: BLOOD SPECIMENOrdering Facility: [facility] Address: [address] [place] [address] Performed By: #### 5 7021-8 ####[facility] LABCLIA [id number] [address] LABCLIA [id number] [address] [place] MCH (RBC) [Entitic mass] 32.7 pg Normal 26.0-34.0 [facility] Comment on above: Order Comment: Speci men Type: BLOOD SPECIMENOrdering Facility: [facility] Address: [address] [place] [address] Performed By: #### 5 7021-8 ####[facility] LABCLIA [id number] [address] LABCLIA [id number] [place] [address] [place] MCHC (RBC) [Mass/Vol] 31.5 g/dL Normal 30.5-36.0 [facility] Comment on above: Order Comment: Speci men Type: BLOOD SPECIMENOrdering Facility: [facility] Address: [address] [place], [place] [address] Performed By: #### 5 7021-8 ####[facility] LABCLIA [id number] [address] LABCLIA [id number] [place] [address] [place] MCV (RBC) [Entitic vol] 103.9 fL High 80.0-100.0 [facility] Comment on above: Order Comment: Speci men Type: BLOOD SPECIMENOrdering Facility: [facility] Address: [address] [place], [place] [address] Performed By: #### 5 7021-8 ####[facility] LABCLIA [id number] [address] LABCLIA [id number] [place] [address] [place] MYELO% 2.0 % Normal [facility] Comment on above: Order Comment: Speci men Type: BLOOD SPECIMENOrdering Facility: [facility] Address: [address] [place], [place] [address] Performed By: #### 5 7021-8 ####[facility] LABCLIA [id number] [address] LABCLIA [id number] [place] [address] [place] Neutrophils (Bld) [#/Vol] 0.66 10*3/uL Low 1.45-7.50 [facility] Comment on above: Order Comment: Speci men Type: BLOOD SPECIMENOrdering Facility: [facility] Address: [address] [place], [place] [address] Performed By: #### 5 7021-8 ####[facility] LABCLIA [id number] [address] LABCLIA [id number] [place] [address] [place] Neutrophils/100 WBC (Bld) 36.0 % Normal [facility] Comment on above: Order Comment: Speci men Type: BLOOD SPECIMENOrdering Facility: [facility] Address: [address] [place], [place] [address] Performed By: #### 5 7021-8 ####[facility] LABCLIA [id number] [address] LABCLIA [id number] [place] [address] [place] Nucleated RBC/100 WBC (Bld) [Ratio] 0.0 /100 WBC Normal [facility] Comment on above: Order Comment: Speci men Type: BLOOD SPECIMENOrdering Facility: [facility] Address: [address] [place] [address] Performed By: #### 5 7021-8 ####[facility] LABCLIA [id number] [address] LABCLIA [id number] [id number] [address] [place] Ovalocytes LM Ql (Bld) Few Normal [facility] Comment on above: Order Comment: Speci men Type: BLOOD SPECIMENOrdering Facility: [facility] Address: [address] [place] [address] Performed By: #### 5 7021-8 ####[facility] LABCLIA [id number] [address] LABCLIA [id number] [place] [address] [place] PLATELET ESTIMATE Decreased Normal [facility] Comment on above: Order Comment: Speci men Type: BLOOD SPECIMENOrdering Facility: [facility] Address: [address] [place] [address] Performed By: #### 5 7021-8 ####[facility] LABCLIA [id number] [address] LABCLIA [id number] [place] [address] [place] Platelet mean volume (Bld) [Entitic vol] 14.1 fL High 9.0-12.7 [facility] Comment on above: Order Comment: Speci men Type: BLOOD SPECIMENOrdering Facility: [facility] Address: [address] [place], [place] [address] Performed By: #### 5 7021-8 ####[facility] LABCLIA [id number] [address] LABCLIA [id number] [place] [address] [place] Platelets (Bld) [#/Vol] 75 10*3/uL Low 150-400 [facility] Comment on above: Order Comment: Speci men Type: BLOOD SPECIMENOrdering Facility: [facility] Address: [address] [place], [place] [address] Result Comment: Resu lts checked and verified. No clot detected. Sample checked for clot Performed By: #### 5 7021-8 ####[facility] LABCLIA [id number] [address] LABCLIA [id number] [place] [address] [place] RBC (Bld) [#/Vol] 2.57 10*6/uL Low 4.20-6.00 [facility] Comment on above: Order Comment: Speci men Type: BLOOD SPECIMENOrdering Facility: [facility] Address: [address] [place] [address] Performed By: #### 5 7021-8 ####[facility] LABCLIA [id number] [address] LABCLIA [id number] [place] [address] [place] RBC FRAGMENTS Few Abnormal None Seen [facility] Comment on above: Order Comment: Speci men Type: BLOOD SPECIMENOrdering Facility: [facility] Address: [address] [place] [address] Performed By: #### 5 7021-8 ####[facility] LABCLIA [id number] [address] LABCLIA [id number] [place] [address] [place] RED CELL MORPH Reviewed: see result s of individual morphologies Normal [facility] Comment on above: Order Comment: Speci men Type: BLOOD SPECIMENOrdering Facility: [facility] Address: [address] [place] [address] Performed By: #### 5 7021-8 ####[facility] LABCLIA [id number] [address] LABCLIA [id number] [place] [address] [place] WAM - ABS BASO 0.00 k/uL Normal <0.11 [facility] Comment on above: Order Comment: Speci men Type: BLOOD SPECIMENOrdering Facility: [facility] Address: [address] [place] [address] Performed By: #### 5 7021-8 ####[facility] LABCLIA [id number] [address] LABCLIA [id number] [place] [address] [place] WAM - ABS MONO 0.33 k/uL Normal <0.87 [facility] Comment on above: Order Comment: Speci men Type: BLOOD SPECIMENOrdering Facility: [facility] Address: [address] [place] [address] Performed By: #### 5 7021-8 ####[facility] LABCLIA [id number] [address] LABCLIA [id number] [address] [place] WAM - MONO% 18.0 % Normal [facility] Comment on above: Order Comment: Speci men Type: BLOOD SPECIMENOrdering Facility: [facility] Address: [address] [place] [address] Performed By: #### 5 7021-8 ####[facility] LABCLIA [id number] [address] LABCLIA [id number] [place] [address] [place] WAM ABSOLUTE NRBC <0.01 Normal <0.01 [facility] Comment on above: Order Comment: Speci men Type: BLOOD SPECIMENOrdering Facility: [facility] Address: [address] [place] [address] Performed By: #### 5 7021-8 ####[facility] LABCLIA [id number] [place] [id number] LABCLIA [id number] [place] [address] [place] WBC (Bld) [#/Vol] 1.84 10*3/uL Low 3.70-11.00 [facility] Comment on above: Order Comment: Speci men Type: BLOOD SPECIMENOrdering Facility: [facility] Address: [address] [place] [address] Performed By: #### 5 7021-8 ####[facility] LABCLIA [id number] [place] [address] LABCLIA [id number] [place] [address] [place] WBC Left Shift Ql (Bld) Present Normal [facility] Comment on above: Order Comment: Speci men Type: BLOOD SPECIMENOrdering Facility: [facility] Address: [address] [place], [place] [address] Performed By: #### 5 7021-8 ####[facility] LABCLIA [id number] [place] [address] LABCLIA [id number] [place] [address] [place] CNOVSPon 04-29-2022 CNOVSP Normal [facility] CNPNon 04-29-2022 CNPN Normal [facility] Comprehensive metabolic 2000 panelon 04-29-2022 Albumin [Mass/Vol] 4.1 g/dL Normal 3.9-4.9 [facility] Comment on above: Order Comment: Speci men Type: BLOOD SPECIMENOrdering Facility: [facility] Address: [address] [place], [place] [address] Performed By: #### 2 4323-8 ####[facility] LABCLIA [id number] [place] [id number] ALP [Catalytic activity/Vol] 86 U/L Normal 38-113 [facility] Comment on above: Order Comment: Speci men Type: BLOOD SPECIMENOrdering Facility: [facility] Address: [address] [place] [address] Performed By: #### 2 4323-8 ####[facility] LABCLIA [id number] [place] [address] ALT [Catalytic activity/Vol] 31 U/L Normal 10-54 [facility] Comment on above: Order Comment: Speci men Type: BLOOD SPECIMENOrdering Facility: [facility] Address: [address] [place] [address] Performed By: #### 2 4323-8 ####[facility] LABCLIA [id number] [place] [address] Anion gap [Moles/Vol] 10 mmol/L Normal 9-18 [facility] Comment on above: Order Comment: Speci men Type: BLOOD SPECIMENOrdering Facility: [facility] Address: [address] [place] [address] Performed By: #### 2 4323-8 ####[facility] LABCLIA [id number] [place] [address] AST [Catalytic activity/Vol] 15 U/L Normal 14-40 [facility] Comment on above: Order Comment: Speci men Type: BLOOD SPECIMENOrdering Facility: [facility] Address: [address] [place] [address] Performed By: #### 2 4323-8 ####[facility] LABCLIA [id number] [place] [address] Bilirubin [Mass/Vol] 0.9 mg/dL Normal 0.2-1.3 [facility] Comment on above: Order Comment: Speci men Type: BLOOD SPECIMENOrdering Facility: [facility] Address: [address] [place] [address] Performed By: #### 2 4323-8 ####[facility] LABCLIA [id number] [place] [address] Calcium [Mass/Vol] 8.9 mg/dL Normal 8.5-10.2 [facility] Comment on above: Order Comment: Speci men Type: BLOOD SPECIMENOrdering Facility: [facility] Address: [address] [place] [address] Performed By: #### 2 4323-8 ####[facility] LABCLIA [id number] [place] [address] Chloride [Moles/Vol] 104 mmol/L Normal 97-105 [facility] Comment on above: Order Comment: Speci men Type: BLOOD SPECIMENOrdering Facility: [facility] Address: [address] [place] [address] Performed By: #### 2 4323-8 ####[facility] LABCLIA [id number] [place] [address] CO2 [Moles/Vol] 29 mmol/L Normal 22-30 [facility] Comment on above: Order Comment: Speci men Type: BLOOD SPECIMENOrdering Facility: [facility] Address: [address] [place] [address] Performed By: #### 2 4323-8 ####[facility] LABCLIA [id number] [place] [address] Creatinine [Mass/Vol] 1.76 mg/dL High 0.73-1.22 [facility] Comment on above: Order Comment: Speci men Type: BLOOD SPECIMENOrdering Facility: [facility] Address: [address] [place] [address] Performed By: #### 2 4323-8 ####[facility] LABCLIA [id number] [place] [address] ESTIMATED GLOMERULAR FILTRATION RATE 38 mL/min/1.73m??? Low >=60 [facility] Comment on above: Order Comment: Speci men Type: BLOOD SPECIMENOrdering Facility: [facility] Address: [address] [phone] Result Comment: Faye mated Glomerular Filtration Rate [...] actual GFR. Performed By: #### 2 4323-8 ####[facility] LABCLIA [id number] [place] [address] Glucose [Mass/Vol] 177 mg/dL High 74-99 [facility] Comment on above: Order Comment: Speci men Type: BLOOD SPECIMENOrdering Facility: [facility] Address: [address] [address] Result Comment: The [place] Diabetes [employer] (ADA) provides guidance for cutoff [...] Standards of Medical Care in Diabetes 2016, [place] [employer]. Diabetes Care. 2016.39(Suppl 1). Performed By: #### 2 4323-8 ####[facility] LABCLIA [id number] [place] [address] Potassium [Moles/Vol] 3.9 mmol/L Normal 3.7-5.1 [facility] Comment on above: Order Comment: Speci men Type: BLOOD SPECIMENOrdering Facility: [facility] Address: [address] [phone] Performed By: #### 2 4323-8 ####[facility] LABCLIA [id number] [place] [address] Protein [Mass/Vol] 6.1 g/dL Low 6.3-8.0 [facility] Comment on above: Order Comment: Speci men Type: BLOOD SPECIMENOrdering Facility: [facility] Address: [address] [place] [address] Performed By: #### 2 4323-8 ####[facility] LABCLIA [id number] [place] [address] Sodium [Moles/Vol] 143 mmol/L Normal 136-144 [facility] Comment on above: Order Comment: Speci men Type: BLOOD SPECIMENOrdering Facility: [facility] Address: [address] [place] [address] Performed By: #### 2 4323-8 ####[facility] LABIA [id number] [place] [address] Urea nitrogen [Mass/Vol] 22 mg/dL Normal 9-24 [facility] Comment on above: Order Comment: Speci men Type: BLOOD SPECIMENOrdering Facility: [facility] Address: [address] [place] [address] Performed By: #### 2 4323-8 ####[facility] LABCLIA [id number] [place] [address] LDH SerPl-cCncon 04-29-2022 LDH [Catalytic activity/Vol] 212 U/L Normal 135-225 [facility] Comment on above: Order Comment: Speci men Type: BLOOD SPECIMENOrdering Facility: [facility] Address: [address] [place] [address] Performed By: #### 2 532-0 ####[facility] LABIA [id number] [place] [address] FLOW CYTOMETRY BONE MARROW R EFLEXon 04-27-2022 Case Report Flow Cytometry Case: [id number] Authorizing Provider: Asher Hummel MD Collected: 04/25/2022 08:35 AM Ordering Location: Hematology/Oncology Received: 04/26/2022 08:07 AM Pathologist: Josie Robison MD Specimen: Bone Marrow [facility] Gross Description A. Bone Marrow RECEIVED 1 ML BONE MARROW IN HEPARIN [facility] Interpretation Specimen type: Bone marrow aspirate [...] developed and its performance characteristics determined by [facility] Pathology and Laboratory Medicine [place] ([facility] It has not been cleared or approved by the FDA. [facility] is regulated under CLIA as qualified to perform high-complexity testing. This test is used for clinical purposes. It should not be regarded as investigational or for research purposes. DSB/MS 04/26/2022 [facility] CBC W Auto Differential pane l (Bld)on 04-26-2022 Abs Baso 0.04 k/uL <0.11 k/uL [facility] Abs Lawrence 0.36 k/uL <0.87 k/uL [facility] Absolute nRBC <0.01 k/uL [facility] Anisocytosis Ql (Bld) Present [facility] Basophils/100 WBC (Bld) 1.8 % [facility] Dacrocytes LM Ql (Bld) Few [facility] Differential cell count method Nom (Bld) Manual [facility] Eosinophils (Bld) [#/Vol] 0.06 10*3/uL <0.46 k/uL [facility] Eosinophils/100 WBC (Bld) 2.7 % [facility] Erythrocyte distribution width (RBC) [Ratio] 25.2 % High 11.5 - 15.0 % [facility] Giant platelets LM Ql (Bld) Occasional [facility] Hematocrit (Bld) [Volume fraction] 28.2 % Low 39.0 - 51.0 % [facility] Hemoglobin (Bld) [Mass/Vol] 9.0 g/dL Low 13.0 - 17.0 g/dL [facility] Lymphocytes (Bld) [#/Vol] 0.82 10*3/uL Low 1.00 - 4.00 k/uL [facility] Lymphocytes/100 WBC (Bld) 34.8 % [facility] MCH (RBC) [Entitic mass] 32.0 pg 26.0 - 34.0 pg [facility] MCHC (RBC) [Mass/Vol] 31.9 g/dL 30.5 - 36.0 g/dL [facility] MCV (RBC) [Entitic vol] 100.4 fL High 80.0 - 100.0 fL [facility] Monocytes/100 WBC (Bld) 15.2 % [facility] Neutrophils (Bld) [#/Vol] 1.07 10*3/uL Low 1.45 - 7.50 k/uL [facility] Neutrophils/100 WBC (Bld) 45.5 % [facility] Nucleated RBC/100 WBC (Bld) [Ratio] 0.0 /100 WBC [facility] Ovalocytes LM Ql (Bld) Few [facility] Platelet Estimate Decreased [facility] Platelet mean volume (Bld) [Entitic vol] [facility] Platelets (Bld) [#/Vol] 77 10*3/uL Low 150 - 400 k/uL [facility] Polychromasia LM Ql (Bld) Slight [facility] RBC (Bld) [#/Vol] 2.81 10*6/uL Low 4.20 - 6.00 m/uL [facility] RBC Fragments Few Abnormal None Seen [facility] Red Cell Morph Reviewed: see result s of individual morphologies [facility] Variant lymphocytes/100 WBC (Bld) 0.0 % [facility] WBC (Bld) [#/Vol] 2.35 10*3/uL Low 3.70 - 11.00 k/u L [facility] FLOW CYTOMETRY BONE MARROW H OLD (BMHOLD)on 04-26-2022 Flow Cytometry Order Status See Results in chart under F case ID [facility] BONE MARROW ANALYSISon 04-25 ADDENDUM 1: Normal [facility] Comment on above: Order Comment: Speci men Type: BONE MARROW SPECIMENOrdering Facility: [facility] Address: [address] [place] [address] Result Comment: The Hematologic Neoplasm next generation sequencing panel was performed on this specimen and showed the following variant(s) of strong or potential clinical significance:TET2p.?, [id number], c.4182+1G>AVAF: 44.5%TET2p.T6804E, NM_001127208.2, c.5618T>CVAF: 40%ZRSR2p.R30Vfs*8, NM_005089.3, c.88delCVAF: 91.1%And the following variant(s) of uncertain significance:IMQXI2p.T46UXS_140594.4: c.214C>TVAF: 100%Please refer to the Scanned Documents tab in REBIScan to view the complete report. There is no change in the diagnosis based on these results.Addendum electronically signed by Josie Robison MD on 06/06/2022 at 3:20 PM Performed By: #### B MRT ####[facility] LABCLIA [id number] [address] OF [facility] CASE REPORT Normal [facility] Comment on above: Order Comment: Speci men Type: BONE MARROW SPECIMENOrdering Facility: [facility] Address: [address] [place], [place] [phone] Result Comment: Bone Marrow Pathology Report Case: [id number] Provider: Asher Hummel MD Collected: 04/25/2022 08:35 AMOrdering Location: Hematology/Oncology Received: 04/25/2022 09:22 AMPathologist: JAK Escobarpecimens: A) - BONE MARROW ASPIRATE RIGHT POSTERIOR ILIAC CREST B) - BONE MARROW BIOPSY RIGHT POSTERIOR ILIAC CREST C) - BONE MARROW CLOT RIGHT POSTERIOR ILIAC CREST D) - Peripheral blood smear Performed By: #### B MRT ####[facility] LABCLIA [id number] [address] DIAGNOSIS COMMENT Normal [facility] Comment on above: Order Comment: Speci men Type: BONE MARROW SPECIMENOrdering Facility: [facility] Address: [address] [place] [address] Result Comment: The reported history of myelodysplastic syndrome is noted. The morphology of the current sample is consistent with persistent disease.Laboratory Developed Test (LDT) Disclaimer:Performance characteristics of immunohistochemical, immunofluorescent and chromogenic in-situ hybridization tests have been determined by the performing laboratory within [facility]???s Jasper Rodriguez [facility] Pathology and Laboratory Medicine [place] ([facility], [facility], [facility] or [facility]) in a manner consistent with CLIA requirements. One or more of these tests have not been cleared or approved by the FDA. [facility] is regulated under CLIA as qualified to perform high-complexity testing. These tests are used for clinical purposes. They should not be regarded as investigational or for research. Positive and negative controls stain appropriately. Performed By: #### B MRT ####[facility] LABCLIA [id number] [address] FINAL DIAGNOSIS Normal [facility] Comment on above: Order Comment: Speci men Type: BONE MARROW SPECIMENOrdering Facility: [facility] Address: [address] [place] [address] Result Comment: A-C. 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 Peripheral blood smear:- Normocytic anemia. Leukopenia. Thrombocytopenia. Performed By: #### B MRT ####[facility] LABCLIA [id number] [address] FINAL PERFORMING LAB Normal [facility] Comment on above: Order Comment: Speci men Type: BONE MARROW SPECIMENOrdering Facility: [facility] Address: [address] [place] [address] Result Comment: Diag nostic interpretation performed at [facility], [address] [place] [address] CLIA# [id number] Director: Candido Pierre M.D. Performed By: #### B MRT ####[facility] LABIA [id number] [address] GROSS DESCRIPTION Normal [facility] Comment on above: Order Comment: Speci men Type: BONE MARROW SPECIMENOrdering Facility: [facility] Address: [address] [place] [address] Result Comment: A. B ONE MARROW ASPIRATE [...] Submitted for light microscopy.Gross examination performed at [facility], [address] [place], [place] [address]FFS 04/25/2022 7:59 PM Performed By: #### B MRT ####[facility] LABIA [id number] [address] MICROSCOPIC DESCRIPTION Normal [facility] Comment on above: Order Comment: Speci men Type: BONE MARROW SPECIMENOrdering Facility: [facility] Address: [address] [place] [address] Result Comment: JOO PHERAL BLOOD:CBC (04/25/22) Diff (by report)WBC 2.35 k/uL Neut% 45.5 %Hemoglobin 9.0 g/dL Lymph% 34.8 %MCV 100.4 fL Lawrence% 15.2 %RDW-CV 25.2 % Eosin% 2.7 %Platelet [...] coat stored Performed By: #### B MRT ####[facility] LABCLIA [id number] [place] [address] [place] BONE MARROW CHROMOSOME ANALo n 04-25-2022 CHROMOSOME BM Normal [facility] Comment on above: Order Comment: Speci men Type: BONE MARROW SPECIMENOrdering Facility: [facility] Address: [address] [phone] Result Comment: Lian ramirez Accession Number: [id number]: Asher HummelPathologist: [facility] Pathology No: [id number] diagnosis: Myelodysplastic syndromeSpecimen Type: Bone marrowNumber of [...] reviewed by Naomi Sena, PhD, FACMGPerformed by [facility] HospitalPathology and Laboratory Medicine InstituteDivision of Molecular PathologyCytogenetics Lab, [id number] [place], [place] [address]Phone: Toll free: Performed By: #### [facility] ####[facility] ILLUMINA LIMSCLIA [id number] [place] [address] [place] CBC W Auto Differential pane l (Bld)on 04-25-2022 Anisocytosis Ql (Bld) Present Normal [facility] Comment on above: Order Comment: Speci men Type: BLOOD SPECIMENOrdering Facility: [facility] Address: [address] [place] [address] Performed By: #### 5 7021-8 ####[facility] LABCLIA [id number] [place], [place] [address]JCMOGUNDY[facility] LABCLIA [id number] [place] [address] [place] Basophils/100 WBC (Bld) 1.8 % Normal [facility] Comment on above: Order Comment: Speci men Type: BLOOD SPECIMENOrdering Facility: [facility] Address: [address] [place] [address] Performed By: #### 5 7021-8 ####[facility] LABCLIA [id number] [address] LABCLIA [id number] [place] [address] [place] Dacrocytes LM Ql (Bld) Few Normal [facility] Comment on above: Order Comment: Speci men Type: BLOOD SPECIMENOrdering Facility: [facility] Address: [address] [place] [address] Performed By: #### 5 7021-8 ####[facility] LABCLIA [id number] [address] LABCLIA [id number] [place] [address] [place] Differential cell count method Nom (Bld) Manual Normal [facility] Comment on above: Order Comment: Speci men Type: BLOOD SPECIMENOrdering Facility: [facility] Address: [address] [place] [address] Performed By: #### 5 7021-8 ####[facility] LABCLIA [id number] [address] LABCLIA [id number] [place] [address] [place] Eosinophils (Bld) [#/Vol] 0.06 10*3/uL Normal <0.46 [facility] Comment on above: Order Comment: Speci men Type: BLOOD SPECIMENOrdering Facility: [facility] Address: [address] [place] [address] Performed By: #### 5 7021-8 ####[facility] LABCLIA [id number] [address] LABCLIA [id number] [place] [address] [place] Eosinophils/100 WBC (Bld) 2.7 % Normal [facility] Comment on above: Order Comment: Speci men Type: BLOOD SPECIMENOrdering Facility: [facility] Address: [address] [place] [address] Performed By: #### 5 7021-8 ####[facility] LABCLIA [id number] [address] LABCLIA [id number] [place] [address] [place] Erythrocyte distribution width (RBC) [Ratio] 25.2 % High 11.5-15.0 [facility] Comment on above: Order Comment: Speci men Type: BLOOD SPECIMENOrdering Facility: [facility] Address: [address] [place] [address] Performed By: #### 5 7021-8 ####[facility] LABCLIA [id number] [address] LABCLIA [id number] [place] [address] [place] Giant platelets LM Ql (Bld) Occasional Normal [facility] Comment on above: Order Comment: Speci men Type: BLOOD SPECIMENOrdering Facility: [facility] Address: [address] [place] [address] Performed By: #### 5 7021-8 ####[facility] LABCLIA [id number] [address] LABCLIA [id number] [place] [address] [place] Hematocrit (Bld) [Volume fraction] 28.2 % Low 39.0-51.0 [facility] Comment on above: Order Comment: Speci men Type: BLOOD SPECIMENOrdering Facility: [facility] Address: [address] [place] [address] Performed By: #### 5 7021-8 ####[facility] LABCLIA [id number] [address] LABCLIA [id number] [place] [address] [place] Hemoglobin (Bld) [Mass/Vol] 9.0 g/dL Low 13.0-17.0 [facility] Comment on above: Order Comment: Speci men Type: BLOOD SPECIMENOrdering Facility: [facility] Address: [address] [place], [place] [address] Performed By: #### 5 7021-8 ####[facility] LABCLIA [id number] [address] LABCLIA [id number] [place] [address] [place] Lymphocytes (Bld) [#/Vol] 0.82 10*3/uL Low 1.00-4.00 [facility] Comment on above: Order Comment: Speci men Type: BLOOD SPECIMENOrdering Facility: [facility] Address: [address] [place], [place] [address] Performed By: #### 5 7021-8 ####[facility] LABCLIA [id number] [address] LABCLIA [id number] [place] [address] [place] Lymphocytes/100 WBC (Bld) 34.8 % Normal [facility] Comment on above: Order Comment: Speci men Type: BLOOD SPECIMENOrdering Facility: [facility] Address: [address] [place] [address] Performed By: #### 5 7021-8 ####[facility] LABCLIA [id number] [address] LABCLIA [id number] [place] [address] [place] MCH (RBC) [Entitic mass] 32.0 pg Normal 26.0-34.0 [facility] Comment on above: Order Comment: Speci men Type: BLOOD SPECIMENOrdering Facility: [facility] Address: [address] [place] [address] Performed By: #### 5 7021-8 ####[facility] LABCLIA [id number] [address] LABCLIA [id number] [place] [address] [place] MCHC (RBC) [Mass/Vol] 31.9 g/dL Normal 30.5-36.0 [facility] Comment on above: Order Comment: Speci men Type: BLOOD SPECIMENOrdering Facility: [facility] Address: [address] [place] [address] Performed By: #### 5 7021-8 ####[facility] LABCLIA [id number] [address] LABCLIA [id number] [place] [address] [place] MCV (RBC) [Entitic vol] 100.4 fL High 80.0-100.0 [facility] Comment on above: Order Comment: Speci men Type: BLOOD SPECIMENOrdering Facility: [facility] Address: [address] [place], [place] [address] Performed By: #### 5 7021-8 ####[facility] LABCLIA [id number] [address] LABCLIA [id number] [place] [address] [place] Neutrophils (Bld) [#/Vol] 1.07 10*3/uL Low 1.45-7.50 [facility] Comment on above: Order Comment: Speci men Type: BLOOD SPECIMENOrdering Facility: [facility] Address: [address] [place], [place] [address] Performed By: #### 5 7021-8 ####[facility] LABCLIA [id number] [address] LABCLIA [id number] [place] [address] [place] Neutrophils/100 WBC (Bld) 45.5 % Normal [facility] Comment on above: Order Comment: Speci men Type: BLOOD SPECIMENOrdering Facility: [facility] Address: [address] [place], [place] [address] Performed By: #### 5 7021-8 ####[facility] LABCLIA [id number] [address] LABCLIA [id number] [place] [address] [place] Nucleated RBC/100 WBC (Bld) [Ratio] 0.0 /100 WBC Normal [facility] Comment on above: Order Comment: Speci men Type: BLOOD SPECIMENOrdering Facility: [facility] Address: [address] [place], [place] [address] Performed By: #### 5 7021-8 ####[facility] LABCLIA [id number] [address] LABCLIA [id number] [place] [address] [place] Ovalocytes LM Ql (Bld) Few Normal [facility] Comment on above: Order Comment: Speci men Type: BLOOD SPECIMENOrdering Facility: [facility] Address: [address] [place] [address] Performed By: #### 5 7021-8 ####[facility] LABCLIA [id number] [address] LABCLIA [id number] [place] [address] [place] PLATELET ESTIMATE Decreased Normal [facility] Comment on above: Order Comment: Speci men Type: BLOOD SPECIMENOrdering Facility: [facility] Address: [address] [place] [address] Performed By: #### 5 7021-8 ####[facility] LABCLIA [id number] [address] LABCLIA [id number] [place] [address] [place] Platelet mean volume (Bld) [Entitic vol] Normal [facility] Comment on above: Order Comment: Speci men Type: BLOOD SPECIMENOrdering Facility: [facility] Address: [address] [place] [address] Result Comment: Unab le to Report. Performed By: #### 5 7021-8 ####[facility] LABCLIA [id number] [address] LABCLIA [id number] [place] [address] [place] Platelets (Bld) [#/Vol] 77 10*3/uL Low 150-400 [facility] Comment on above: Order Comment: Speci men Type: BLOOD SPECIMENOrdering Facility: [facility] Address: [address] [place] [address] Result Comment: Samp le checked for clot Performed By: #### 5 7021-8 ####[facility] LABCLIA [id number] [address] LABCLIA [id number] [place] [address] [place] Polychromasia LM Ql (Bld) Slight Normal [facility] Comment on above: Order Comment: Speci men Type: BLOOD SPECIMENOrdering Facility: [facility] Address: [address] [place], [place] [address] Performed By: #### 5 7021-8 ####[facility] LABCLIA [id number] [address] LABCLIA [id number] [place] [address] [place] RBC (Bld) [#/Vol] 2.81 10*6/uL Low 4.20-6.00 [facility] Comment on above: Order Comment: Speci men Type: BLOOD SPECIMENOrdering Facility: [facility] Address: [address] [place] [address] Performed By: #### 5 7021-8 ####[facility] LABCLIA [id number] [address] LABCLIA [id number] [place] [address] [place] RBC FRAGMENTS Few Abnormal None Seen [facility] Comment on above: Order Comment: Speci men Type: BLOOD SPECIMENOrdering Facility: [facility] Address: [address] [place] [address] Performed By: #### 5 7021-8 ####[facility] LABCLIA [id number] [address] LABCLIA [id number] [place] [address] [place] RED CELL MORPH Reviewed: see result s of individual morphologies Normal [facility] Comment on above: Order Comment: Speci men Type: BLOOD SPECIMENOrdering Facility: [facility] Address: [address] [place] [address] Performed By: #### 5 7021-8 ####[facility] LABCLIA [id number] [address] LABCLIA [id number] [place] [address] [place] Variant lymphocytes/100 WBC (Bld) 0.0 % Normal [facility] Comment on above: Order Comment: Speci men Type: BLOOD SPECIMENOrdering Facility: [facility] Address: [address] [place] [address] Performed By: #### 5 7021-8 ####[facility] LABCLIA [id number] [address] LABCLIA [id number] [place] [address] [place] WAM - ABS BASO 0.04 k/uL Normal <0.11 [facility] Comment on above: Order Comment: Speci men Type: BLOOD SPECIMENOrdering Facility: [facility] Address: [address] [place] [address] Performed By: #### 5 7021-8 ####[facility] LABCLIA [id number] [address] LABCLIA [id number] [place] [address] [place] WAM - ABS MONO 0.36 k/uL Normal <0.87 [facility] Comment on above: Order Comment: Speci men Type: BLOOD SPECIMENOrdering Facility: [facility] Address: [address] [place] [address] Performed By: #### 5 7021-8 ####[facility] LABCLIA [id number] [address] LABCLIA [id number] [place] [address] [place] WAM - MONO% 15.2 % Normal [facility] Comment on above: Order Comment: Speci men Type: BLOOD SPECIMENOrdering Facility: [facility] Address: [address] [place] [address] Performed By: #### 5 7021-8 ####[facility] LABCLIA [id number] [address] [facility] LABCLIA [id number] [place] [address] [place] WAM ABSOLUTE NRBC <0.01 Normal <0.01 [facility] Comment on above: Order Comment: Speci men Type: BLOOD SPECIMENOrdering Facility: [facility] Address: [address] [place] [address] Result Comment: This result was previously suppressed from the chart. Performed By: #### 5 7021-8 ####[facility] LABCLIA [id number] [address] LABCLIA [id number] [place] [address] [place] WBC (Bld) [#/Vol] 2.35 10*3/uL Low 3.70-11.00 [facility] Comment on above: Order Comment: Speci men Type: BLOOD SPECIMENOrdering Facility: [facility] Address: [address] [place] [address] Result Comment: Samp le checked for clot Performed By: #### 5 7021-8 ####[facility] LABCLIA [id number] [place] [address] LABCLIA [id number] [place] [address] [place] CNOVSPon 04-25-2022 CNOVSP Normal [facility] Comprehensive metabolic 2000 panelon 04-25-2022 Albumin [Mass/Vol] 4.0 g/dL Normal 3.9-4.9 [facility] Comment on above: Order Comment: Speci men Type: BLOOD SPECIMENOrdering Facility: [facility] Address: [address] [place] [address] Performed By: #### 2 532-0, 34102-5 ####[facility] LABCLIA [id number] [place] [address] ALP [Catalytic activity/Vol] 83 U/L Normal 38-113 [facility] Comment on above: Order Comment: Speci men Type: BLOOD SPECIMENOrdering Facility: [facility] Address: [address] [place], [place] [address] Performed By: #### 2 532-0, ####[facility] LABCLIA [id number] [place] [address] ALT [Catalytic activity/Vol] 31 U/L Normal 10-54 [facility] Comment on above: Order Comment: Speci men Type: BLOOD SPECIMENOrdering Facility: [facility] Address: [address] [place] [address] Performed By: #### 2 532-0, ####[facility] LABCLIA [id number] [place] [address] Anion gap [Moles/Vol] 10 mmol/L Normal 9-18 [facility] Comment on above: Order Comment: Speci men Type: BLOOD SPECIMENOrdering Facility: [facility] Address: [address] [place] [address] Performed By: #### 2 532-0, ####[facility] LABCLIA [id number] [place] [address] AST [Catalytic activity/Vol] 17 U/L Normal 14-40 [facility] Comment on above: Order Comment: Speci men Type: BLOOD SPECIMENOrdering Facility: [facility] Address: [address] [place], [place] [address] Performed By: #### 2 532-0, 73357-4 ####[facility] LABCLIA [id number] [place] [address] Bilirubin [Mass/Vol] 1.0 mg/dL Normal 0.2-1.3 [facility] Comment on above: Order Comment: Speci men Type: BLOOD SPECIMENOrdering Facility: [facility] Address: [address] [place] [address] Performed By: #### 2 532-0, ####[facility] LABCLIA [id number] [place] [address] Calcium [Mass/Vol] 8.9 mg/dL Normal 8.5-10.2 [facility] Comment on above: Order Comment: Speci men Type: BLOOD SPECIMENOrdering Facility: [facility] Address: [address] [place] [address] Performed By: #### 2 532-0, ####[facility] LABCLIA [id number] [place] [address] Chloride [Moles/Vol] 104 mmol/L Normal 97-105 [facility] Comment on above: Order Comment: Speci men Type: BLOOD SPECIMENOrdering Facility: [facility] Address: [address] [place] [address] Performed By: #### 2 532-0, ####[facility] LABCLIA [id number] [place] [address] CO2 [Moles/Vol] 29 mmol/L Normal 22-30 [facility] Comment on above: Order Comment: Speci men Type: BLOOD SPECIMENOrdering Facility: [facility] Address: [address] [place] [address] Performed By: #### 2 532-0, ####[facility] LABCLIA [id number] [place] [address] Creatinine [Mass/Vol] 1.79 mg/dL High 0.73-1.22 [facility] Comment on above: Order Comment: Speci men Type: BLOOD SPECIMENOrdering Facility: [facility] Address: [address] [place] [address] Performed By: #### 2 532-0, 20214-0 ####[facility] LABCLIA [id number] [place] [address] ESTIMATED GLOMERULAR FILTRATION RATE 37 mL/min/1.73m??? Low >=60 [facility] Comment on above: Order Comment: Davi avendaño Type: BLOOD SPECIMENOrdering Facility: [facility] Address: [address] [place] [id number] Result Comment: Faye mated Glomerular Filtration Rate [...] actual GFR. Performed By: #### 2 532-0, 98558-5 ####[facility] LABIA [id number] [place] [address] Glucose [Mass/Vol] 127 mg/dL High 74-99 [facility] Comment on above: Order Comment: Davi avendaño Type: BLOOD SPECIMENOrdering Facility: [facility] Address: [address] [place], [place] [address] Result Comment: The [place] Diabetes Association (ADA) provides guidance for cutoff [...] Standards of Medical Care in Diabetes 2016, [place] [employer]. Diabetes Care. 2016.39(Suppl 1). Performed By: #### 2 532-0, 04477-7 ####[facility] LABIA [id number] [place] [address] Potassium [Moles/Vol] 4.3 mmol/L Normal 3.7-5.1 [facility] Comment on above: Order Comment: Davi avendaño Type: BLOOD SPECIMENOrdering Facility: [facility] Address: [address] [place] [address] Performed By: #### 2 532-0, 85485-9 ####[facility] LABCLIA [id number] [place] [address] Protein [Mass/Vol] 6.1 g/dL Low 6.3-8.0 [facility] Comment on above: Order Comment: Speci men Type: BLOOD SPECIMENOrdering Facility: [facility] Address: [address] [place] [address] Performed By: #### 2 532-0, 89339-1 ####[facility] LABCLIA [id number] [place] [address] Sodium [Moles/Vol] 143 mmol/L Normal 136-144 [facility] Comment on above: Order Comment: Speci men Type: BLOOD SPECIMENOrdering Facility: [facility] Address: [address] [place] [address] Performed By: #### 2 532-0, 90679-7 ####[facility] LABIA [id number] [place] [address] Urea nitrogen [Mass/Vol] 29 mg/dL High 9-24 [facility] Comment on above: Order Comment: Speci men Type: BLOOD SPECIMENOrdering Facility: [facility] Address: [address] [place] [address] Performed By: #### 2 532-0, 54609-4 ####[facility] LABCLIA [id number] [place] [address] Albumin [Mass/Vol] 4.0 g/dL 3.9 - 4.9 g/dL [facility] ALP [Catalytic activity/Vol] 83 U/L 38 - 113 U/L [facility] ALT [Catalytic activity/Vol] 31 U/L 10 - 54 U/L [facility] Anion gap [Moles/Vol] 10 mmol/L 9 - 18 mmol/L [facility] AST [Catalytic activity/Vol] 17 U/L 14 - 40 U/L [facility] Bilirubin [Mass/Vol] 1.0 mg/dL 0.2 - 1.3 mg/dL [facility] Calcium [Mass/Vol] 8.9 mg/dL 8.5 - 10.2 mg/dL [facility] Chloride [Moles/Vol] 104 mmol/L 97 - 105 mmol/L [facility] CO2 [Moles/Vol] 29 mmol/L 22 - 30 mmol/L [facility] Creatinine [Mass/Vol] 1.79 mg/dL High 0.73 - 1.22 mg/dL [facility] Estimated Glomerular Filtration Rate 37 mL/min/1.73m Low >=60 mL/min/1.73m [facility] Glucose [Mass/Vol] 127 mg/dL High 74 - 99 mg/dL [facility] Potassium [Moles/Vol] 4.3 mmol/L 3.7 - 5.1 mmol/L [facility] Protein [Mass/Vol] 6.1 g/dL Low 6.3 - 8.0 g/dL Cl [facility] Sodium [Moles/Vol] 143 mmol/L 136 - 144 mmol/L [facility] Urea nitrogen [Mass/Vol] 29 mg/dL High 9 - 24 mg/dL [facility] DNA EXTRACTION BONE MARROW ( BUFFY COAT)on 04-25-2022 DNA EXTRACTION BONE MARROW (BUFFY COAT) Normal [facility] Comment on above: Order Comment: Speci men Type: BONE MARROW SPECIMENOrdering Facility: [facility] Address: [address] [place] [address] Result Comment: This specimen was received and successfully processed for future DNA purification should molecular testing be needed. Specimens will be available for 3 years from date of collection.To order testing on this specimen for [facility] patients, please place an [facility] order for DNA and RNA Clinical Testing ([id number]). To order testing for patients outside of the [facility] system, please request DNA and RNA for Clinical Testing, order code [id number].If additional paperwork is required for testing, please send completed forms via secure email to . Performed By: #### N UCBUF ####[facility] I[facility]INA LIMSCLIA [id number] [address] [place] FLOW CYTOMETRY BONE MARROW H OLD (BMHOLD)on 04-25-2022 FLOW CYTOMETRY ORDER STATUS See Results in chart under F case ID Normal [facility] Comment on above: Order Comment: Speci men Type: BONE MARROW SPECIMENOrdering Facility: [facility] Address: [address] [place] [address] Performed By: #### B MHOLDRFLX, BMHOLD ####[facility] LABCLIA [id number] [address] FLOW CYTOMETRY BONE MARROW R EFLEXon 04-25-2022 CASE REPORT Normal [facility] Comment on above: Order Comment: Speci men Type: BONE MARROW SPECIMENOrdering Facility: [facility] Address: [address] [place] [address] Result Comment: Flow Cytometry Case: [id number] Provider: Asher Hummel MD Collected: 04/25/2022 08:35 AMOrdering Location: Hematology/Oncology Received: 04/26/2022 08:07 AMPathologist: JAK Escobarpecimen: Bone Marrow Performed By: #### B SANTIAGOX, BMHOLD ####[facility] LABCLIA [id number] [address] GROSS DESCRIPTION A. Bone Marrow Normal [facility] Comment on above: Order Comment: Speci men Type: BONE MARROW SPECIMENOrdering Facility: [facility] Address: [address] [place], [place] [address] Result Comment: RECE IVED 1 ML BONE MARROW IN HEPARIN Performed By: #### B MHOLDRFLX, BMHOLD ####[facility] LABCLIA [id number] [address] [place] INTERPRETATION Normal [facility] Comment on above: Order Comment: Speci men Type: BONE MARROW SPECIMENOrdering Facility: [facility] Address: [address] [place] [address] Result Comment: Spec imen type: Bone marrow aspirateViability: 95%Flow Cytometry Bone Marrow ImmunophenotypingMarker Normal Cell Type Result (Lymphocytes)CD3 T-cells Normal PatternCD4 T-cell subset Normal PatternCD5 T-cells Normal PatternCD7 T/NK-cells Normal PatternCD8 T-cell subset Normal IxrgouoTY77 Myeloid Normal XqbqpgzFY32/56 NK cells Normal ZkjndvnYS71 B-cells Normal EyrjvorEI52 Blasts Normal NbmavaqLS60 Sarmiento-leukocyte Normal Patternkappa/lambda B-cells PolytypicFlow cytometric analysis [...] developed and its performance characteristics determined by [facility]???s [facility] Pathology and Laboratory Medicine [place] ([facility]). It has not been cleared or approved by the FDA. [facility] is regulated under CLIA as qualified to perform high-complexity testing. This test is used for clinical purposes. It should not be regarded as investigational or for research purposes.DSB/MS 04/26/2022 Diagnostic interpretation performed at [place] [address] CLIA# [id number] Director: Candido Pierre M.D. Performed By: #### B MHOLDRFSUNSHINE, BMHOLD ####[facility] LABCLIA [id number] [place] [address] [place] FLT3 ITD HN BONE MARROWon CLARITY SIGNOUT PATHOLOGIST [id number] Normal [facility] Comment on above: Order Comment: Speci men Type: BONE MARROW SPECIMENOrdering Facility: [facility] Address: [address] [place] [address] Performed By: #### M [facility] ####[facility] [id number] [address] OF [facility] FLT3 ITD HN PANEL BONE MARROW Normal [facility] Comment on above: Order Comment: Speci men Type: BONE MARROW SPECIMENOrdering Facility: [facility] Address: [address] [place] [address] Result Comment: FLT3 Internal Tandem Duplication (ITD) Mutation TestingLaboratory Accession Number: [id number] Internal Tandem Duplication (ITD) mutation: Not DetectedComment:FLT3/ITD [...] from the specimen provided. Regions of the MIU8kxlmgrzp kinase receptor gene are subjected to the [...] within myeloid neoplasms.References:1) Violet MP, Abbe P, Tiacci E, et al. Mutational landscapeof AML with normal cytogenetics: biological and clinical implications.Blood Rev.2013;27:13-22.2) [place] MAY[place], Paula M, Mickey ME, et al. Prognostic relevance ofintegrated genetic profiling in acute myeloid leukemia. N Engl J Med.2011Oct 16;366 (12):1079-89.3) Akosua H, Carlo E, Main Mccall, et al. Diagnosis and mangement ofAML in adults: 2017 ELN recommendations from an international expertpanel. Blood [phone],[phone] (2017).Disclaimer:This test was developed and its performance characteristics determinedby [facility]'s [facility] LaboratoryMedicine [place] ([facility]). It has not been cleared or approved bythe FDA. -PLIL is regulated under CLIA as certified to perform high-complexity testing. This test is used for clinical purposes. It shouldnot be regarded as investigational or for research.Testing and interpretation performed at [facility], [address] [place] [address]. CLIA Number: [id number] reviewed by Lisa Hernadez, PhD, [facility] Performed By: #### M YMARTURO, F3IM ####CLARITY ILLUMINA LIMSCA [id number] [place] [address] [place] LD LACTATE DEHYDROon 022 LDH [Catalytic activity/Vol] 234 U/L High 135 - 225 U/L [facility] LDH SerPl-cCncon 04-25-2022 LDH [Catalytic activity/Vol] 234 U/L High 135-225 [facility] Comment on above: Order Comment: Speci men Type: BLOOD SPECIMENOrdering Facility: [facility] Address: [address] [place] [address] Performed By: #### 2 532-0, 48941-4 ####[facility] LABCLIA [id number] [place] [id number] MYELOID NGS PANEL BONE MARRO Won 04-25-2022 MYELOID NGS PANEL BONE MARROW Normal [facility] Comment on above: Order Comment: Speci men Type: BONE MARROW SPECIMENOrdering Facility: [facility] Address: [address] [place] [address] Result Comment: Myel oid NGS Panel Bone MarrowLaboratory Accession Number: [id number]:Please see linked document and/or separate report for full result whenavailable.As reviewed by Lisa Hernadez, PhD, HCLD Performed By: #### M YMNGS, F3 ####CL[facility] ILLUMINA LIMSCLIA [id number] [place] [address] [place] CNPNon 04-23-2022 CNPN Normal [facility] CBC W Auto Differential pane l (Bld)on 04-22-2022 Anisocytosis Ql (Bld) Present Normal [facility] Comment on above: Order Comment: Speci men Type: BLOOD SPECIMENOrdering Facility: [facility] Address: [address] [place] [address] Performed By: #### 5 7021-8 ####[facility] LABCLIA [id number] [address] LABCLIA [id number] [place] [address] Basophils/100 WBC (Bld) 0.0 % Normal [facility] Comment on above: Order Comment: Speci men Type: BLOOD SPECIMENOrdering Facility: [facility] Address: [address] [place], [place] [address] Performed By: #### 5 7021-8 ####[facility] LABCLIA [id number] [address] LABCLIA [id number] [place] [address] Dacrocytes LM Ql (Bld) Few Normal [facility] Comment on above: Order Comment: Speci men Type: BLOOD SPECIMENOrdering Facility: [facility] Address: [address] [place], [place] [address] Performed By: #### 5 7021-8 ####[facility] LABCLIA [id number] [address] LABCLIA [id number] [place] [address] Differential cell count method Nom (Bld) Manual Normal [facility] Comment on above: Order Comment: Speci men Type: BLOOD SPECIMENOrdering Facility: [facility] Address: [address] [place], [place] [address] Performed By: #### 5 7021-8 ####[facility] LABCLIA [id number] [address] LABCLIA [id number] [place] [address] Eosinophils (Bld) [#/Vol] 0.04 10*3/uL Normal <0.46 [facility] Comment on above: Order Comment: Speci men Type: BLOOD SPECIMENOrdering Facility: [facility] Address: [address] [place] [address] Performed By: #### 5 7021-8 ####[facility] LABCLIA [id number] [address] LABCLIA [id number] [place] [address] Eosinophils/100 WBC (Bld) 2.0 % Normal [facility] Comment on above: Order Comment: Speci men Type: BLOOD SPECIMENOrdering Facility: [facility] Address: [address] [place] [address] Performed By: #### 5 7021-8 ####[facility] LABCLIA [id number] [address] LABCLIA [id number] [place] [address] Erythrocyte distribution width (RBC) [Ratio] 26.1 % High 11.5-15.0 [facility] Comment on above: Order Comment: Speci men Type: BLOOD SPECIMENOrdering Facility: [facility] Address: [address] [place] [address] Performed By: #### 5 7021-8 ####[facility] LABCLIA [id number] [address] LABCLIA [id number] [place] [address] Hematocrit (Bld) [Volume fraction] 23.8 % Low 39.0-51.0 [facility] Comment on above: Order Comment: Speci men Type: BLOOD SPECIMENOrdering Facility: [facility] Address: [address] [place] [address] Performed By: #### 5 7021-8 ####[facility] LABCLIA [id number] [address] LABCLIA [id number] [place] [address] Hemoglobin (Bld) [Mass/Vol] 7.5 g/dL Low 13.0-17.0 [facility] Comment on above: Order Comment: Speci men Type: BLOOD SPECIMENOrdering Facility: [facility] Address: [address] [place] [address] Performed By: #### 5 7021-8 ####[facility] LABCLIA [id number] [address] LABCLIA [id number] [place] [address] Lymphocytes (Bld) [#/Vol] 0.89 10*3/uL Low 1.00-4.00 [facility] Comment on above: Order Comment: Speci men Type: BLOOD SPECIMENOrdering Facility: [facility] Address: [address] [place] [address] Performed By: #### 5 7021-8 ####[facility] LABCLIA [id number] [address] LABCLIA [id number] [place] [address] Lymphocytes/100 WBC (Bld) 43.0 % Normal [facility] Comment on above: Order Comment: Speci men Type: BLOOD SPECIMENOrdering Facility: [facility] Address: [address] [place] [address] Performed By: #### 5 7021-8 ####[facility] LABCLIA [id number] [address] LABCLIA [id number] [place] [address] MCH (RBC) [Entitic mass] 33.2 pg Normal 26.0-34.0 [facility] Comment on above: Order Comment: Speci men Type: BLOOD SPECIMENOrdering Facility: [facility] Address: [address] [place] [address] Performed By: #### 5 7021-8 ####[facility] LABCLIA [id number] [address] LABCLIA [id number] [place] [address] MCHC (RBC) [Mass/Vol] 31.5 g/dL Normal 30.5-36.0 [facility] Comment on above: Order Comment: Speci men Type: BLOOD SPECIMENOrdering Facility: [facility] Address: [address] [place] [address] Performed By: #### 5 7021-8 ####[facility] LABCLIA [id number] [address] LABCLIA [id number] [place] [address] MCV (RBC) [Entitic vol] 105.3 fL High 80.0-100.0 [facility] Comment on above: Order Comment: Speci men Type: BLOOD SPECIMENOrdering Facility: [facility] Address: [address] [place] [address] Performed By: #### 5 7021-8 ####[facility] LABCLIA [id number] [address] LABCLIA [id number] [place] [address] MYELO% 1.0 % Normal [facility] Comment on above: Order Comment: Speci men Type: BLOOD SPECIMENOrdering Facility: [facility] Address: [address] [place] [address] Performed By: #### 5 7021-8 ####[facility] LABCLIA [id number] [address] LABCLIA [id number] [place] [address] Neutrophils (Bld) [#/Vol] 0.72 10*3/uL Low 1.45-7.50 [facility] Comment on above: Order Comment: Speci men Type: BLOOD SPECIMENOrdering Facility: [facility] Address: [address] [place] [address] Performed By: #### 5 7021-8 ####[facility] LABCLIA [id number] [address] LABCLIA [id number] [place] [address] Neutrophils/100 WBC (Bld) 35.0 % Normal [facility] Comment on above: Order Comment: Speci men Type: BLOOD SPECIMENOrdering Facility: [facility] Address: [address] [place] [address] Performed By: #### 5 7021-8 ####[facility] LABCLIA [id number] [address] [address] [facility] LABCLIA [id number] [place] [address] Nucleated RBC/100 WBC (Bld) [Ratio] 0.0 /100 WBC Normal [facility] Comment on above: Order Comment: Speci men Type: BLOOD SPECIMENOrdering Facility: [facility] Address: [address] [place] [address] Performed By: #### 5 7021-8 ####[facility] LABCLIA [id number] [address] LABCLIA [id number] [place] [address] Ovalocytes LM Ql (Bld) Few Normal [facility] Comment on above: Order Comment: Speci men Type: BLOOD SPECIMENOrdering Facility: [facility] Address: [address] [place] [address] Performed By: #### 5 7021-8 ####[facility] LABCLIA [id number] [address] LABCLIA [id number] [place] [address] PLATELET ESTIMATE Decreased Normal [facility] Comment on above: Order Comment: Speci men Type: BLOOD SPECIMENOrdering Facility: [facility] Address: [address] [place] [address] Performed By: #### 5 7021-8 ####[facility] LABCLIA [id number] [place] [address] [facility] LABCLIA [id number] [place] [address] Platelet mean volume (Bld) [Entitic vol] Normal [facility] Comment on above: Order Comment: Speci men Type: BLOOD SPECIMENOrdering Facility: [facility] Address: [address] [place] [address] Result Comment: Unab le to Report. Performed By: #### 5 7021-8 ####[facility] LABCLIA [id number] [address] LABCLIA [id number] [place] [address] Platelets (Bld) [#/Vol] 86 10*3/uL Low 150-400 [facility] Comment on above: Order Comment: Speci men Type: BLOOD SPECIMENOrdering Facility: [facility] Address: [address] [place] [address] Result Comment: Resu lts checked and verified. No clot detected Performed By: #### 5 7021-8 ####[facility] LABCLIA [id number] [address] LABCLIA [id number] [place] [address] Polychromasia LM Ql (Bld) Slight Normal [facility] Comment on above: Order Comment: Speci men Type: BLOOD SPECIMENOrdering Facility: [facility] Address: [address] [place] [address] Performed By: #### 5 7021-8 ####[facility] LABCLIA [id number] [address] LABCLIA [id number] [place] [address] RBC (Bld) [#/Vol] 2.26 10*6/uL Low 4.20-6.00 [facility] Comment on above: Order Comment: Speci men Type: BLOOD SPECIMENOrdering Facility: [facility] Address: [address] [place] [address] Performed By: #### 5 7021-8 ####[facility] LABCLIA [id number] [place] [id number] [facility] LABCLIA [id number] [place] [address] RBC FRAGMENTS Few Abnormal None Seen [facility] Comment on above: Order Comment: Speci men Type: BLOOD SPECIMENOrdering Facility: [facility] Address: [address] [place] [address] Performed By: #### 5 7021-8 ####[facility] LABCLIA [id number] [place] [id number] [facility] LABCLIA [id number] [place] [address] RED CELL MORPH Reviewed: see result s of individual morphologies Normal [facility] Comment on above: Order Comment: Speci men Type: BLOOD SPECIMENOrdering Facility: [facility] Address: [address] [place] [address] Performed By: #### 5 7021-8 ####[facility] LABCLIA [id number] [address] LABCLIA [id number] [place] [id number] WAM - ABS BASO 0.00 k/uL Normal <0.11 [facility] Comment on above: Order Comment: Speci men Type: BLOOD SPECIMENOrdering Facility: [facility] Address: [address] [place], [place] [address] Performed By: #### 5 7021-8 ####[facility] LABCLIA [id number] [address] LABCLIA [id number] [place] [id number] WAM - ABS MONO 0.39 k/uL Normal <0.87 [facility] Comment on above: Order Comment: Speci men Type: BLOOD SPECIMENOrdering Facility: [facility] Address: [address] [place] [address] Performed By: #### 5 7021-8 ####[facility] LABCLIA [id number] [address] LABCLIA [id number] [place] [address] WAM - MONO% 19.0 % Normal [facility] Comment on above: Order Comment: Speci men Type: BLOOD SPECIMENOrdering Facility: [facility] Address: [address] [place], [place] [address] Performed By: #### 5 7021-8 ####[facility] LABCLIA [id number] [address] LABCLIA [id number] [place] [address] WAM ABSOLUTE NRBC <0.01 Normal <0.01 [facility] Comment on above: Order Comment: Speci men Type: BLOOD SPECIMENOrdering Facility: [facility] Address: [address] [place], [place] [address] Performed By: #### 5 7021-8 ####[facility] LABCLIA [id number] [address] LABCLIA [id number] [place] [address] WBC (Bld) [#/Vol] 2.07 10*3/uL Low 3.70-11.00 [facility] Comment on above: Order Comment: Speci men Type: BLOOD SPECIMENOrdering Facility: [facility] Address: [address] [place] [address] Result Comment: Resu lts checked and verified. No clot detected Performed By: #### 5 7021-8 ####[facility] LABCLIA [id number] [address] LABCLIA [id number] [place] [address] WBC Left Shift Ql (Bld) Present Normal [facility] Comment on above: Order Comment: Speci men Type: BLOOD SPECIMENOrdering Facility: [facility] Address: [address] [place] [address] Performed By: #### 5 7021-8 ####[facility] LABCLIA [id number] [place] [id number] [facility] LABCLIA [id number] [place] [address] CNOVSPon 04-22-2022 CNOVSP Normal [facility] CNPNon 04-22-2022 CNPN Normal [facility] Comprehensive metabolic 2000 panelon 04-22-2022 Albumin [Mass/Vol] 3.9 g/dL Normal 3.9-4.9 [facility] Comment on above: Order Comment: Speci men Type: BLOOD SPECIMENOrdering Facility: [facility] Address: [address] [place], [place] [address] Performed By: #### 2 4323-8, 2531-0 ####[facility] LABCLIA [id number] [place] [address] ALP [Catalytic activity/Vol] 83 U/L Normal 38-113 [facility] Comment on above: Order Comment: Speci men Type: BLOOD SPECIMENOrdering Facility: [facility] Address: [address] [place], [place] [address] Performed By: #### 2 4323-8, 2-0 ####[facility] LABCLIA [id number] [place] [address] ALT [Catalytic activity/Vol] 30 U/L Normal 10-54 [facility] Comment on above: Order Comment: Speci men Type: BLOOD SPECIMENOrdering Facility: [facility] Address: [address] [place], [place] [address] Performed By: #### 2 4328, 2532-0 ####[facility] LABCLIA [id number] [place] [address] Anion gap [Moles/Vol] 9 mmol/L Normal 9-18 [facility] Comment on above: Order Comment: Speci men Type: BLOOD SPECIMENOrdering Facility: [facility] Address: [address] [place], [place] [address] Performed By: #### 2 4328, 2531-0 ####[facility] LABCLIA [id number] [place] [address] AST [Catalytic activity/Vol] 15 U/L Normal 14-40 [facility] Comment on above: Order Comment: Speci men Type: BLOOD SPECIMENOrdering Facility: [facility] Address: [address] [place] [address] Performed By: #### 2 43210-02, ####[facility] LABCLIA [id number] [place] [address] Bilirubin [Mass/Vol] 0.8 mg/dL Normal 0.2-1.3 [facility] Comment on above: Order Comment: Speci men Type: BLOOD SPECIMENOrdering Facility: [facility] Address: [address] [place] [address] Performed By: #### 2 4328, 0 ####[facility] LABCLIA [id number] [place] [address] Calcium [Mass/Vol] 9.1 mg/dL Normal 8.5-10.2 [facility] Comment on above: Order Comment: Speci men Type: BLOOD SPECIMENOrdering Facility: [facility] Address: [address] [place], [place] [address] Performed By: #### 2 4328, 2531-0 ####[facility] LABCLIA [id number] [place] [address] Chloride [Moles/Vol] 108 mmol/L High 97-105 [facility] Comment on above: Order Comment: Speci men Type: BLOOD SPECIMENOrdering Facility: [facility] Address: [address] [place], [place] [address] Performed By: #### 2 432-8, 0 ####[facility] LABCLIA [id number] [place] [address] CO2 [Moles/Vol] 28 mmol/L Normal 22-30 [facility] Comment on above: Order Comment: Speci men Type: BLOOD SPECIMENOrdering Facility: [facility] Address: [address] [place] [address] Performed By: #### 2 4328, ####[facility] LABCLIA [id number] [place] [address] Creatinine [Mass/Vol] 1.76 mg/dL High 0.73-1.22 [facility] Comment on above: Order Comment: Speci men Type: BLOOD SPECIMENOrdering Facility: [facility] Address: [address] [place] [address] Performed By: #### 2 4328, ####[facility] LABCLIA [id number] [place] [address] ESTIMATED GLOMERULAR FILTRATION RATE 38 mL/min/1.73m??? Low >=60 [facility] Comment on above: Order Comment: Speci men Type: BLOOD SPECIMENOrdering Facility: [facility] Address: [address] [place] [address] Result Comment: Faye mated Glomerular Filtration Rate [...] GFR. Performed By: #### 2 43238, 0 ####[facility] LABCLIA [id number] [place] [address] Glucose [Mass/Vol] 170 mg/dL High 74-99 [facility] Comment on above: Order Comment: Speci men Type: BLOOD SPECIMENOrdering Facility: [facility] Address: [address] [place], [place] [address] Result Comment: The [place] Diabetes [employer] (ADA) provides guidance for cutoff [...] Standards of Medical Care in Diabetes 2016, [place] [employer]. Diabetes Care. 2016.39(Suppl 1). Performed By: #### 2 4323-8, 2531-0 ####[facility] LABCLIA [id number] [place] [address] Potassium [Moles/Vol] 4.2 mmol/L Normal 3.7-5.1 [facility] Comment on above: Order Comment: Speci men Type: BLOOD SPECIMENOrdering Facility: [facility] Address: [address] [place], [place] [address] Performed By: #### 2 43238, 2531-0 ####[facility] LABCLIA [id number] [place] [address] Protein [Mass/Vol] 6.0 g/dL Low 6.3-8.0 [facility] Comment on above: Order Comment: Speci men Type: BLOOD SPECIMENOrdering Facility: [facility] Address: [address] [place], [place] [address] Performed By: #### 2 4323-8, 2531-0 ####[facility] LABCLIA [id number] [place] [address] Sodium [Moles/Vol] 145 mmol/L High 136-144 [facility] Comment on above: Order Comment: Speci men Type: BLOOD SPECIMENOrdering Facility: [facility] Address: [address] [place] [address] Performed By: #### 2 4323-8, 2532-0 ####[facility] LABCLIA [id number] [place] [id number] Urea nitrogen [Mass/Vol] 24 mg/dL Normal 9-24 [facility] Comment on above: Order Comment: Speci men Type: BLOOD SPECIMENOrdering Facility: [facility] Address: [address] [place] [address] Performed By: #### 2 4323-8, 253-0 ####[facility] LABCLIA [id number] [place] [id number] HEMOGLOBIN AND HEMATOCRITon 04-22-2022 Hematocrit (Bld) [Volume fraction] 23.1 % Critically low 42.0-54.0 [facility] Comment on above: Performed By: #### H GBHCT #### [facility] [address] [place] [address] Dr. Benito To Hemoglobin (Bld) [Mass/Vol] 7.2 g/dL Critically low 14.0-18.0 [facility] Comment on above: Performed By: #### H GBHCT #### [facility] [address] [place] [address] [address] Benito To LDH SerPl-cCncon 04-22-2022 LDH [Catalytic activity/Vol] 220 U/L Normal 135-225 [facility] Comment on above: Order Comment: Speci men Type: BLOOD SPECIMENOrdering Facility: [facility] Address: [address] [place] [address] Performed By: #### 2 4323-8, 2532-0 ####[facility] LABCLIA [id number] [place] [address] TYPE AND SCREENon 04-22-2022 TYPE AND SCREEN Negative Normal [facility] Comment on above: Performed By: #### H H #### [facility] [address] [place], [place] [address] Dr. Benito To CNOVSPon 04-18-2022 CNOVSP Normal [facility] CBC W Auto Differential pane l (Bld)on 04-15-2022 Basophils (Bld) [#/Vol] 0.03 10*3/uL Normal <0.11 [facility] Comment on above: Order Comment: Speci men Type: BLOOD SPECIMENOrdering Facility: [facility] Address: [address] [place] [address] Performed By: #### 5 7021-8 ####[facility] LABCLIA [id number] [place] [address] Basophils/100 WBC (Bld) 1.4 % Normal [facility] Comment on above: Order Comment: Speci men Type: BLOOD SPECIMENOrdering Facility: [facility] Address: [address] [place] [address] Performed By: #### 5 7021-8 ####[facility] LABCLIA [id number] [place] [address] Differential cell count method Nom (Bld) Auto Normal [facility] Comment on above: Order Comment: Speci men Type: BLOOD SPECIMENOrdering Facility: [facility] Address: [address] [place] [address] Performed By: #### 5 7021-8 ####[facility] LABCLIA [id number] [place] [address] Eosinophils (Bld) [#/Vol] 10*3/uL Normal <0.46 [facility] Comment on above: Order Comment: Speci men Type: BLOOD SPECIMENOrdering Facility: [facility] Address: [address] [place] [address] Performed By: #### 5 7021-8 ####[facility] LABCLIA [id number] [place] [address] Eosinophils/100 WBC (Bld) 0.5 % Normal [facility] Comment on above: Order Comment: Speci men Type: BLOOD SPECIMENOrdering Facility: [facility] Address: [address] [place] [address] Performed By: #### 5 7021-8 ####[facility] LABCLIA [id number] [place] [address] Erythrocyte distribution width (RBC) [Ratio] 26.0 % High 11.5-15.0 [facility] Comment on above: Order Comment: Speci men Type: BLOOD SPECIMENOrdering Facility: [facility] Address: [address] [place] [address] Performed By: #### 5 7021-8 ####[facility] LABCLIA [id number] [place] [address] Hematocrit (Bld) [Volume fraction] 24.9 % Low 39.0-51.0 [facility] Comment on above: Order Comment: Speci men Type: BLOOD SPECIMENOrdering Facility: [facility] Address: [address] [place] [address] Performed By: #### 5 7021-8 ####[facility] LABCLIA [id number] [place] [address] Hemoglobin (Bld) [Mass/Vol] 7.9 g/dL Low 13.0-17.0 [facility] Comment on above: Order Comment: Speci men Type: BLOOD SPECIMENOrdering Facility: [facility] Address: [address] [place] [address] Performed By: #### 5 7021-8 ####[facility] LABCLIA [id number] [place] [address] IMMATURE GRAN % 6.5 % Normal [facility] Comment on above: Order Comment: Speci men Type: BLOOD SPECIMENOrdering Facility: [facility] Address: [address] [place] [address] Performed By: #### 5 7021-8 ####[facility] LABCLIA [id number] [place] [address] IMMATURE GRAN ABS 0.14 k/uL High <0.10 [facility] Comment on above: Order Comment: Speci men Type: BLOOD SPECIMENOrdering Facility: [facility] Address: [address] [place] [address] Performed By: #### 5 7021-8 ####[facility] LABIA [id number] [place] [address] Lymphocytes (Bld) [#/Vol] 0.80 10*3/uL Low 1.00-4.00 [facility] Comment on above: Order Comment: Speci men Type: BLOOD SPECIMENOrdering Facility: [facility] Address: [address] [place] [address] Performed By: #### 5 7021-8 ####[facility] LABIA [id number] [place] [address] Lymphocytes/100 WBC (Bld) 37.0 % Normal [facility] Comment on above: Order Comment: Speci men Type: BLOOD SPECIMENOrdering Facility: [facility] Address: [address] [place] [address] Performed By: #### 5 7021-8 ####[facility] LABIA [id number] [place] [address] MCH (RBC) [Entitic mass] 33.5 pg Normal 26.0-34.0 [facility] Comment on above: Order Comment: Speci men Type: BLOOD SPECIMENOrdering Facility: [facility] Address: [address] [place] [address] Performed By: #### 5 7021-8 ####[facility] LABIA [id number] [place] [address] MCHC (RBC) [Mass/Vol] 31.7 g/dL Normal 30.5-36.0 [facility] Comment on above: Order Comment: Speci men Type: BLOOD SPECIMENOrdering Facility: [facility] Address: [address] [place] [address] Performed By: #### 5 7021-8 ####[facility] LABCLIA [id number] [place] [address] MCV (RBC) [Entitic vol] 105.5 fL High 80.0-100.0 [facility] Comment on above: Order Comment: Speci men Type: BLOOD SPECIMENOrdering Facility: [facility] Address: [address] [place] [address] Performed By: #### 5 7021-8 ####[facility] LABCLIA [id number] [place] [address] Monocytes (Bld) [#/Vol] 0.28 10*3/uL Normal <0.87 [facility] Comment on above: Order Comment: Speci men Type: BLOOD SPECIMENOrdering Facility: [facility] Address: [address] [place] [address] Performed By: #### 5 7021-8 ####[facility] LABCLIA [id number] [place] [address] Monocytes/100 WBC (Bld) 13.0 % Normal [facility] Comment on above: Order Comment: Speci men Type: BLOOD SPECIMENOrdering Facility: [facility] Address: [address] [place] [address] Performed By: #### 5 7021-8 ####[facility] LABCLIA [id number] [place] [address] Neutrophils (Bld) [#/Vol] 0.90 10*3/uL Low 1.45-7.50 [facility] Comment on above: Order Comment: Speci men Type: BLOOD SPECIMENOrdering Facility: [facility] Address: [address] [place] [address] Performed By: #### 5 7021-8 ####[facility] LABCLIA [id number] [place] [address] Neutrophils/100 WBC (Bld) 41.6 % Normal [facility] Comment on above: Order Comment: Speci men Type: BLOOD SPECIMENOrdering Facility: [facility] Address: [address] [place] [address] Performed By: #### 5 7021-8 ####[facility] LABCLIA [id number] [place] [address] Nucleated RBC (Bld) [#/Vol] 0.02 10*3/uL High <0.01 [facility] Comment on above: Order Comment: Speci men Type: BLOOD SPECIMENOrdering Facility: [facility] Address: [address] [place] [address] Performed By: #### 5 7021-8 ####[facility] LABIA [id number] [place] [address] Nucleated RBC/100 WBC (Bld) [Ratio] 0.9 /100 WBC Normal [facility] Comment on above: Order Comment: Speci men Type: BLOOD SPECIMENOrdering Facility: [facility] Address: [address] [place] [address] Performed By: #### 5 7021-8 ####[facility] LABIA [id number] [place] [address] Platelet mean volume (Bld) [Entitic vol] 13.7 fL High 9.0-12.7 [facility] Comment on above: Order Comment: Speci men Type: BLOOD SPECIMENOrdering Facility: [facility] Address: [address] [place] [address] Performed By: #### 5 7021-8 ####[facility] LABCLIA [id number] [place] [address] Platelets (Bld) [#/Vol] 132 10*3/uL Low 150-400 [facility] Comment on above: Order Comment: Speci men Type: BLOOD SPECIMENOrdering Facility: [facility] Address: [address] [place] [address] Result Comment: Resu lts checked and verified. No clot detected. Sample checked for clot Performed By: #### 5 7021-8 ####[facility] LABCLIA [id number] [place] [address] RBC (Bld) [#/Vol] 2.36 10*6/uL Low 4.20-6.00 [facility] Comment on above: Order Comment: Speci men Type: BLOOD SPECIMENOrdering Facility: [facility] Address: [address] [place] [address] Performed By: #### 5 7021-8 ####[facility] LABCLIA [id number] [place] [id number] WBC (Bld) [#/Vol] 2.16 10*3/uL Low 3.70-11.00 [facility] Comment on above: Order Comment: Speci men Type: BLOOD SPECIMENOrdering Facility: [facility] Address: [address] [place] [address] Performed By: #### 5 7021-8 ####[facility] LABCLIA [id number] [place] [address] CNPNon 04-15-2022 CNPN Normal [facility] Comprehensive metabolic 2000 panelon 04-15-2022 Albumin [Mass/Vol] 4.0 g/dL Normal 3.9-4.9 [facility] Comment on above: Order Comment: Speci men Type: BLOOD SPECIMENOrdering Facility: [facility] Address: [address] [place] [address] Performed By: #### 2 532-0, 84020-8 ####[facility] LABCLIA [id number] [place] [address] ALP [Catalytic activity/Vol] 76 U/L Normal 38-113 [facility] Comment on above: Order Comment: Speci men Type: BLOOD SPECIMENOrdering Facility: [facility] Address: [address] [place] [address] Performed By: #### 2 532-0, ####[facility] LABCLIA [id number] [place] [address] ALT [Catalytic activity/Vol] 28 U/L Normal 10-54 [facility] Comment on above: Order Comment: Speci men Type: BLOOD SPECIMENOrdering Facility: [facility] Address: [address] [place] [address] Performed By: #### 2 532-0, ####[facility] LABCLIA [id number] [place] [address] Anion gap [Moles/Vol] 10 mmol/L Normal 9-18 [facility] Comment on above: Order Comment: Speci men Type: BLOOD SPECIMENOrdering Facility: [facility] Address: [address] [place] [address] Performed By: #### 2 532-0, ####[facility] LABCLIA [id number] [place] [address] AST [Catalytic activity/Vol] 15 U/L Normal 14-40 [facility] Comment on above: Order Comment: Speci men Type: BLOOD SPECIMENOrdering Facility: [facility] Address: [address] [place] [address] Performed By: #### 2 532-0, 64676-0 ####[facility] LABCLIA [id number] [place] [address] Bilirubin [Mass/Vol] 0.6 mg/dL Normal 0.2-1.3 [facility] Comment on above: Order Comment: Speci men Type: BLOOD SPECIMENOrdering Facility: [facility] Address: [address] Performed By: #### 2 532-0, 80226-5 ####[facility] LABCLIA [id number] [place] [address] Calcium [Mass/Vol] 8.9 mg/dL Normal 8.5-10.2 [facility] Comment on above: Order Comment: Speci men Type: BLOOD SPECIMENOrdering Facility: [facility] Address: [address] [place] [address] Performed By: #### 2 532-0, ####[facility] LABCLIA [id number] [place] [address] Chloride [Moles/Vol] 107 mmol/L High 97-105 [facility] Comment on above: Order Comment: Speci men Type: BLOOD SPECIMENOrdering Facility: [facility] Address: [address] [place] [address] Performed By: #### 2 532-0, ####[facility] LABIA [id number] [place] [address] CO2 [Moles/Vol] 28 mmol/L Normal 22-30 [facility] Comment on above: Order Comment: Speci men Type: BLOOD SPECIMENOrdering Facility: [facility] Address: [address] [place] [address] Performed By: #### 2 532-0, ####[facility] LABCLIA [id number] [place] [address] Creatinine [Mass/Vol] 1.76 mg/dL High 0.73-1.22 [facility] Comment on above: Order Comment: Speci men Type: BLOOD SPECIMENOrdering Facility: [facility] Address: [address] [place] [address] Performed By: #### 2 532-0, 01860-7 ####[facility] LABCLIA [id number] [place] [address] ESTIMATED GLOMERULAR FILTRATION RATE 38 mL/min/1.73m??? Low >=60 [facility] Comment on above: Order Comment: Davi avendaño Type: BLOOD SPECIMENOrdering Facility: [facility] Address: [address] [place], [place] [address] Result Comment: Faye mated Glomerular Filtration Rate [...] actual GFR. Performed By: #### 2 532-0, 08139-3 ####[facility] LABCLIA [id number] [place] [address] Glucose [Mass/Vol] 223 mg/dL High 74-99 [facility] Comment on above: Order Comment: Davi avendaño Type: BLOOD SPECIMENOrdering Facility: [facility] Address: [address] [place] [address] Result Comment: The [place] [employer] (ADA) provides guidance for cutoff [...] Standards of Medical Care in Diabetes 2016, [place] [employer]. Diabetes Care. 2016.39(Suppl 1). Performed By: #### 2 532-0, 32795-3 ####[facility] LABCLIA [id number] [place] [address] Potassium [Moles/Vol] 3.9 mmol/L Normal 3.7-5.1 [facility] Comment on above: Order Comment: Speci men Type: BLOOD SPECIMENOrdering Facility: [facility] Address: [address] [place] [address] Performed By: #### 2 532-0, 60659-2 ####[facility] LABIA [id number] [place] [address] Protein [Mass/Vol] 6.0 g/dL Low 6.3-8.0 [facility] Comment on above: Order Comment: Speci men Type: BLOOD SPECIMENOrdering Facility: [facility] Address: [address] [place] [address] Performed By: #### 2 532-0, ####[facility] LABIA [id number] [place] [address] Sodium [Moles/Vol] 145 mmol/L High 136-144 [facility] Comment on above: Order Comment: Speci men Type: BLOOD SPECIMENOrdering Facility: [facility] Address: [address] [place] [address] Performed By: #### 2 532-0, 58540-5 ####[facility] LABIA [id number] [place] [address] Urea nitrogen [Mass/Vol] 26 mg/dL High 9-24 [facility] Comment on above: Order Comment: Speci men Type: BLOOD SPECIMENOrdering Facility: [facility] Address: [address] [place] [address] Performed By: #### 2 532-0, 99609-2 ####[facility] LABIA [id number] [place] [address] LDH SerPl-cCncox branson 04-15-2022 LDH [Catalytic activity/Vol] 227 U/L High 135-225 [facility] Comment on above: Order Comment: Speci men Type: BLOOD SPECIMENOrdering Facility: [facility] Address: [address] [place] [address] Performed By: #### 2 532-0, 60299-4 ####[facility] LABCLIA [id number] [place] [id number] CBC W Auto Differential pane l (Bld)on 04-08-2022 Anisocytosis Ql (Bld) Present Normal [facility] Comment on above: Order Comment: Speci men Type: BLOOD SPECIMENOrdering Facility: [facility] Address: [address] [place] [address] Performed By: #### 5 7021-8 ####[facility] LABCLIA [id number] [address] LABCLIA [id number] [place] [address] [place] Basophils/100 WBC (Bld) 2.7 % Normal [facility] Comment on above: Order Comment: Speci men Type: BLOOD SPECIMENOrdering Facility: [facility] Address: [address] [place] [address] Performed By: #### 5 7021-8 ####[facility] LABCLIA [id number] [address] LABCLIA [id number] [place] [address] [place] Differential cell count method Nom (Bld) Manual Normal [facility] Comment on above: Order Comment: Speci men Type: BLOOD SPECIMENOrdering Facility: [facility] Address: [address] [place] [address] Performed By: #### 5 7021-8 ####[facility] LABCLIA [id number] [address] LABCLIA [id number] [place] [address] [place] Eosinophils (Bld) [#/Vol] 0.01 10*3/uL Normal <0.46 [facility] Comment on above: Order Comment: Speci men Type: BLOOD SPECIMENOrdering Facility: [facility] Address: [address] [place] [address] Performed By: #### 5 7021-8 ####[facility] LABCLIA [id number] [address] LABCLIA [id number] [place] [address] [place] Eosinophils/100 WBC (Bld) 0.5 % Normal [facility] Comment on above: Order Comment: Speci men Type: BLOOD SPECIMENOrdering Facility: [facility] Address: [address] [place] [address] Performed By: #### 5 7021-8 ####[facility] LABCLIA [id number] [address] LABCLIA [id number] [place] [address] [place] Erythrocyte distribution width (RBC) [Ratio] 24.5 % High 11.5-15.0 [facility] Comment on above: Order Comment: Speci men Type: BLOOD SPECIMENOrdering Facility: [facility] Address: [address] [place] [address] Performed By: #### 5 7021-8 ####[facility] LABCLIA [id number] [address] LABCLIA [id number] [place] [address] [place] Hematocrit (Bld) [Volume fraction] 25.8 % Low 39.0-51.0 [facility] Comment on above: Order Comment: Speci men Type: BLOOD SPECIMENOrdering Facility: [facility] Address: [address] [place] [address] Performed By: #### 5 7021-8 ####[facility] LABCLIA [id number] [address] LABCLIA [id number] [place] [address] [place] Hemoglobin (Bld) [Mass/Vol] 8.1 g/dL Low 13.0-17.0 [facility] Comment on above: Order Comment: Speci men Type: BLOOD SPECIMENOrdering Facility: [facility] Address: [address] [place] [address] Performed By: #### 5 7021-8 ####[facility] LABCLIA [id number] [address] LABCLIA [id number] [place] [address] [place] Lymphocytes (Bld) [#/Vol] 0.81 10*3/uL Low 1.00-4.00 [facility] Comment on above: Order Comment: Speci men Type: BLOOD SPECIMENOrdering Facility: [facility] Address: [address] [place] [address] Performed By: #### 5 7021-8 ####[facility] LABCLIA [id number] [address] LABCLIA [id number] [place] [address] [place] Lymphocytes/100 WBC (Bld) 44.8 % Normal [facility] Comment on above: Order Comment: Speci men Type: BLOOD SPECIMENOrdering Facility: [facility] Address: [address] [place] [address] Performed By: #### 5 7021-8 ####[facility] LABCLIA [id number] [address] LABCLIA [id number] [place] [address] [place] MCH (RBC) [Entitic mass] 32.5 pg Normal 26.0-34.0 [facility] Comment on above: Order Comment: Speci men Type: BLOOD SPECIMENOrdering Facility: [facility] Address: [address] [place] [address] Performed By: #### 5 7021-8 ####[facility] LABCLIA [id number] [address] LABCLIA [id number] [place] [address] [place] MCHC (RBC) [Mass/Vol] 31.4 g/dL Normal 30.5-36.0 [facility] Comment on above: Order Comment: Speci men Type: BLOOD SPECIMENOrdering Facility: [facility] Address: [address] [place] [address] Performed By: #### 5 7021-8 ####[facility] LABCLIA [id number] [address] LABCLIA [id number] [place] [address] [place] MCV (RBC) [Entitic vol] 103.6 fL High 80.0-100.0 [facility] Comment on above: Order Comment: Speci men Type: BLOOD SPECIMENOrdering Facility: [facility] Address: [address] [place] [address] Performed By: #### 5 7021-8 ####[facility] LABCLIA [id number] [address] LABCLIA [id number] [place] [address] [place] Neutrophils (Bld) [#/Vol] 0.70 10*3/uL Low 1.45-7.50 [facility] Comment on above: Order Comment: Speci men Type: BLOOD SPECIMENOrdering Facility: [facility] Address: [address] [place] [address] Performed By: #### 5 7021-8 ####[facility] LABCLIA [id number] [place] [address] LABCLIA [id number] [place] [address] [place] Neutrophils/100 WBC (Bld) 38.8 % Normal [facility] Comment on above: Order Comment: Speci men Type: BLOOD SPECIMENOrdering Facility: [facility] Address: [address] [place] [address] Performed By: #### 5 7021-8 ####[facility] LABCLIA [id number] [address] LABCLIA [id number] [place] [address] [place] Nucleated RBC/100 WBC (Bld) [Ratio] 0.0 /100 WBC Normal [facility] Comment on above: Order Comment: Speci men Type: BLOOD SPECIMENOrdering Facility: [facility] Address: [address] [place] [address] Performed By: #### 5 7021-8 ####[facility] LABCLIA [id number] [address] LABCLIA [id number] [place] [address] [place] Ovalocytes LM Ql (Bld) Few Normal [facility] Comment on above: Order Comment: Speci men Type: BLOOD SPECIMENOrdering Facility: [facility] Address: [address] [place] [address] Performed By: #### 5 7021-8 ####[facility] LABCLIA [id number] [address] LABCLIA [id number] [place] [address] [place] PLATELET ESTIMATE Decreased Normal [facility] Comment on above: Order Comment: Speci men Type: BLOOD SPECIMENOrdering Facility: [facility] Address: [address] [place] [address] Performed By: #### 5 7021-8 ####[facility] LABCLIA [id number] [address] LABCLIA [id number] [place] [address] [place] Platelet mean volume (Bld) [Entitic vol] 13.8 fL High 9.0-12.7 [facility] Comment on above: Order Comment: Speci men Type: BLOOD SPECIMENOrdering Facility: [facility] Address: [address] [place], [place] [address] Performed By: #### 5 7021-8 ####[facility] LABCLIA [id number] [address] LABCLIA [id number] [place] [address] [place] Platelets (Bld) [#/Vol] 129 10*3/uL Low 150-400 [facility] Comment on above: Order Comment: Speci men Type: BLOOD SPECIMENOrdering Facility: [facility] Address: [address] [place], [place] [address] Result Comment: Samp le checked for clot Performed By: #### 5 7021-8 ####[facility] LABCLIA [id number] [address] LABCLIA [id number] [place] [address] [place] Polychromasia LM Ql (Bld) Slight Normal [facility] Comment on above: Order Comment: Speci men Type: BLOOD SPECIMENOrdering Facility: [facility] Address: [address] [place] [address] Performed By: #### 5 7021-8 ####[facility] LABCLIA [id number] [address] LABCLIA [id number] [place] [address] [place] RBC (Bld) [#/Vol] 2.49 10*6/uL Low 4.20-6.00 [facility] Comment on above: Order Comment: Speci men Type: BLOOD SPECIMENOrdering Facility: [facility] Address: [address] [place] [address] Performed By: #### 5 7021-8 ####[facility] LABCLIA [id number] [address] LABCLIA [id number] [place] [address] [place] RBC FRAGMENTS Few Abnormal None Seen [facility] Comment on above: Order Comment: Speci men Type: BLOOD SPECIMENOrdering Facility: [facility] Address: [address] [place] [address] Performed By: #### 5 7021-8 ####[facility] LABCLIA [id number] [address] LABCLIA [id number] [place] [address] [place] RED CELL MORPH Reviewed: see result s of individual morphologies Normal [facility] Comment on above: Order Comment: Speci men Type: BLOOD SPECIMENOrdering Facility: [facility] Address: [address] [place], [place] [address] Performed By: #### 5 7021-8 ####[facility] LABCLIA [id number] [address] LABCLIA [id number] [place] [address] [place] Variant lymphocytes/100 WBC (Bld) 0.0 % Normal [facility] Comment on above: Order Comment: Speci men Type: BLOOD SPECIMENOrdering Facility: [facility] Address: [address] [place], [place] [address] Performed By: #### 5 7021-8 ####[facility] LABCLIA [id number] [place] [address] LABCLIA [id number] [place] [address] [place] WAM - ABS BASO 0.05 k/uL Normal <0.11 [facility] Comment on above: Order Comment: Speci men Type: BLOOD SPECIMENOrdering Facility: [facility] Address: [address] [place], [place] [address] Performed By: #### 5 7021-8 ####[facility] LABCLIA [id number] [address] LABCLIA [id number] [place] [address] [place] WAM - ABS MONO 0.24 k/uL Normal <0.87 [facility] Comment on above: Order Comment: Speci men Type: BLOOD SPECIMENOrdering Facility: [facility] Address: [address] [place] [address] Performed By: #### 5 7021-8 ####[facility] LABCLIA [id number] [address] LABCLIA [id number] [place] [address] [place] WAM - MONO% 13.2 % Normal [facility] Comment on above: Order Comment: Speci men Type: BLOOD SPECIMENOrdering Facility: [facility] Address: [address] [place] [address] Performed By: #### 5 7021-8 ####[facility] LABCLIA [id number] [address] LABCLIA [id number] [place] [address] [place] WAM ABSOLUTE NRBC <0.01 Normal <0.01 [facility] Comment on above: Order Comment: Speci men Type: BLOOD SPECIMENOrdering Facility: [facility] Address: [address] [place], [place] [address] Result Comment: This result was previously suppressed from the chart. Performed By: #### 5 7021-8 ####[facility] LABCLIA [id number] [place] [address] LABCLIA [id number] [place] [address] [place] WBC (Bld) [#/Vol] 1.81 10*3/uL Low 3.70-11.00 [facility] Comment on above: Order Comment: Speci men Type: BLOOD SPECIMENOrdering Facility: [facility] Address: [address] [place] [address] Result Comment: Samp le checked for clot Performed By: #### 5 7021-8 ####[facility] LABCLIA [id number] [place] [address] LABCLIA [id number] [place] [address] [place] CNOVSPon 04-08-2022 CNOVSP Normal [facility] Comprehensive metabolic 2000 panelon 04-08-2022 Albumin [Mass/Vol] 3.9 g/dL Normal 3.9-4.9 [facility] Comment on above: Order Comment: Speci men Type: BLOOD SPECIMENOrdering Facility: [facility] Address: [address] [place], [place] [address] Performed By: #### 2 532-0, 65016-5 ####[facility] LABCLIA [id number] [place] [id number] ALP [Catalytic activity/Vol] 77 U/L Normal 38-113 [facility] Comment on above: Order Comment: Speci men Type: BLOOD SPECIMENOrdering Facility: [facility] Address: [address] [place], [place] [address] Performed By: #### 2 532-0, ####[facility] LABCLIA [id number] [place] [address] ALT [Catalytic activity/Vol] 24 U/L Normal 10-54 [facility] Comment on above: Order Comment: Speci men Type: BLOOD SPECIMENOrdering Facility: [facility] Address: [address] [place] [address] Performed By: #### 2 532-0, ####[facility] LABCLIA [id number] [place] [address] Anion gap [Moles/Vol] 7 mmol/L Low 9-18 [facility] Comment on above: Order Comment: Speci men Type: BLOOD SPECIMENOrdering Facility: [facility] Address: [address] [place] [address] Performed By: #### 2 532-0, ####[facility] LABCLIA [id number] [place] [address] AST [Catalytic activity/Vol] 12 U/L Low 14-40 [facility] Comment on above: Order Comment: Speci men Type: BLOOD SPECIMENOrdering Facility: [facility] Address: [address] [place] [address] Performed By: #### 2 532-0, ####[facility] LABCLIA [id number] [place] [address] Bilirubin [Mass/Vol] 0.7 mg/dL Normal 0.2-1.3 [facility] Comment on above: Order Comment: Speci men Type: BLOOD SPECIMENOrdering Facility: [facility] Address: [address] [place] [address] Performed By: #### 2 532-0, ####[facility] LABCLIA [id number] [place] [address] Calcium [Mass/Vol] 8.9 mg/dL Normal 8.5-10.2 [facility] Comment on above: Order Comment: Speci men Type: BLOOD SPECIMENOrdering Facility: [facility] Address: [address] [place], [place] [address] Performed By: #### 2 532-0, ####[facility] LABCLIA [id number] [place] [address] Chloride [Moles/Vol] 106 mmol/L High 97-105 [facility] Comment on above: Order Comment: Speci men Type: BLOOD SPECIMENOrdering Facility: [facility] Address: [address] [place] [address] Performed By: #### 2 532-0, ####[facility] LABCLIA [id number] [place] [address] CO2 [Moles/Vol] 29 mmol/L Normal 22-30 [facility] Comment on above: Order Comment: Speci men Type: BLOOD SPECIMENOrdering Facility: [facility] Address: [address] [place] [address] Performed By: #### 2 532-0, ####[facility] LABCLIA [id number] [place] [address] Creatinine [Mass/Vol] 1.84 mg/dL High 0.73-1.22 [facility] Comment on above: Order Comment: Speci men Type: BLOOD SPECIMENOrdering Facility: [facility] Address: [address] [place] [address] Performed By: #### 2 532-0, 18356-7 ####[facility] LABCLIA [id number] [place] [address] ESTIMATED GLOMERULAR FILTRATION RATE 36 mL/min/1.73m??? Low >=60 [facility] Comment on above: Order Comment: Speci men Type: BLOOD SPECIMENOrdering Facility: [facility] Address: [address] [place] [address] Result Comment: Faye mated Glomerular Filtration Rate [...] actual GFR. Performed By: #### 2 532-0, 23238-6 ####[facility] LABIA [id number] [place] [address] Glucose [Mass/Vol] 221 mg/dL High 74-99 [facility] Comment on above: Order Comment: Davi avendaño Type: BLOOD SPECIMENOrdering Facility: [facility] Address: [address] [address] Result Comment: The [place] Diabetes Association (ADA) provides guidance for cutoff [...] Standards of Medical Care in Diabetes 2016, [place] [employer]. Diabetes Care. 2016.39(Suppl 1). Performed By: #### 2 532-0, 71200-0 ####[facility] LABIA [id number] [place] [address] Potassium [Moles/Vol] 4.2 mmol/L Normal 3.7-5.1 [facility] Comment on above: Order Comment: Davi avendaño Type: BLOOD SPECIMENOrdering Facility: [facility] Address: [address] [place] [address] Performed By: #### 2 532-0, 65336-3 ####[facility] LABCLIA [id number] [place] [address] Protein [Mass/Vol] 5.9 g/dL Low 6.3-8.0 [facility] Comment on above: Order Comment: Speci men Type: BLOOD SPECIMENOrdering Facility: [facility] Address: [address] [place] [address] Performed By: #### 2 532-0, 01352-3 ####[facility] LABIA [id number] [place] [address] Sodium [Moles/Vol] 142 mmol/L Normal 136-144 [facility] Comment on above: Order Comment: Speci men Type: BLOOD SPECIMENOrdering Facility: [facility] Address: [address] [place] [address] Performed By: #### 2 532-0, 20674-2 ####[facility] LABIA [id number] [place] [address] Urea nitrogen [Mass/Vol] 24 mg/dL Normal 9-24 [facility] Comment on above: Order Comment: Speci men Type: BLOOD SPECIMENOrdering Facility: [facility] Address: [address] [place] [address] Performed By: #### 2 532-0, 49746-3 ####[facility] LABIA [id number] [place] [address] LDH SerPl-cCncon 04-08-2022 LDH [Catalytic activity/Vol] 209 U/L Normal 135-225 [facility] Comment on above: Order Comment: Speci men Type: BLOOD SPECIMENOrdering Facility: [facility] Address: [address] [place] [address] Performed By: #### 2 532-0, 48770-8 ####[facility] LABIA [id number] [place] [address] PRBC LEUKOREDUCEDon 04-07-20 ABO and Rh group Nom (Bld) Cross Match Result Compatible Unit Blood Type A Pos Unit Number [id number] Status Information Transfused Product ID Red Blood Cells Product Code [id number] Cross Match Result Compatible Unit Blood Type A Pos Unit Number [id number] Status Information Transfused Product ID Red Blood Cells Product Code [id number] Normal [facility] Comment on above: Performed By: #### H H #### [facility] [address] [place] [address] Dr. Benito To CNPNon 04-03-2022 CNPN Normal [facility] HEMOGLOBIN AND HEMATOCRITon 04-03-2022 Hematocrit (Bld) [Volume fraction] 21.8 % Critically low 42.0-54.0 [facility] Comment on above: Performed By: #### H GBHCT #### [facility] [address] [place] [address] Dr. Benito To Hemoglobin (Bld) [Mass/Vol] 6.9 g/dL Critically low 14.0-18.0 [facility] Comment on above: Performed By: #### H GBHCT #### [facility] [address] [place] [address] Dr. Benito To TYPE AND SCREENon 04-03-2022 TYPE AND SCREEN Negative Normal [facility] Comment on above: Performed By: #### H H #### [facility] [address] [place] [address] Dr. Benito To CBC W Auto Differential pane l (Bld)on 04-02-2022 Basophils (Bld) [#/Vol] 10*3/uL Normal <0.11 [facility] Comment on above: Order Comment: Speci men Type: BLOOD SPECIMENOrdering Facility: [facility] Address: [address] [address] Performed By: #### 5 7021-8 ####[facility] LABCLIA [id number] [place] [address] Basophils/100 WBC (Bld) 0.8 % Normal [facility] Comment on above: Order Comment: Speci men Type: BLOOD SPECIMENOrdering Facility: [facility] Address: [address] [place] [address] Performed By: #### 5 7021-8 ####[facility] LABCLIA [id number] [place] [address] Differential cell count method Nom (Bld) Auto Normal [facility] Comment on above: Order Comment: Speci men Type: BLOOD SPECIMENOrdering Facility: [facility] Address: [address] [place] [address] Performed By: #### 5 7021-8 ####[facility] LABCLIA [id number] [place] [address] Eosinophils (Bld) [#/Vol] 10*3/uL Normal <0.46 [facility] Comment on above: Order Comment: Speci men Type: BLOOD SPECIMENOrdering Facility: [facility] Address: [address] [place] [address] Performed By: #### 5 7021-8 ####[facility] LABCLIA [id number] [place] [address] Eosinophils/100 WBC (Bld) 0.4 % Normal [facility] Comment on above: Order Comment: Speci men Type: BLOOD SPECIMENOrdering Facility: [facility] Address: [address] [place] [address] Performed By: #### 5 7021-8 ####[facility] LABCLIA [id number] [place] [address] Erythrocyte distribution width (RBC) [Ratio] 25.1 % High 11.5-15.0 [facility] Comment on above: Order Comment: Speci men Type: BLOOD SPECIMENOrdering Facility: [facility] Address: [address] [place] [address] Performed By: #### 5 7021-8 ####[facility] LABCLIA [id number] [place] [address] Hematocrit (Bld) [Volume fraction] 22.4 % Low 39.0-51.0 [facility] Comment on above: Order Comment: Speci men Type: BLOOD SPECIMENOrdering Facility: [facility] Address: [address] [place] [address] Performed By: #### 5 7021-8 ####[facility] LABCLIA [id number] [place] [address] Hemoglobin (Bld) [Mass/Vol] 7.0 g/dL Low 13.0-17.0 [facility] Comment on above: Order Comment: Speci men Type: BLOOD SPECIMENOrdering Facility: [facility] Address: [address] [place] [address] Performed By: #### 5 7021-8 ####[facility] LABCLIA [id number] [place] [address] IMMATURE GRAN % 1.2 % Normal [facility] Comment on above: Order Comment: Speci men Type: BLOOD SPECIMENOrdering Facility: [facility] Address: [address] [place] [address] Performed By: #### 5 7021-8 ####[facility] LABCLIA [id number] [place] [address] IMMATURE GRAN ABS 0.03 k/uL Normal <0.10 [facility] Comment on above: Order Comment: Speci men Type: BLOOD SPECIMENOrdering Facility: [facility] Address: [address] [place] [address] Performed By: #### 5 7021-8 ####[facility] LABCLIA [id number] [place] [address] Lymphocytes (Bld) [#/Vol] 0.78 10*3/uL Low 1.00-4.00 [facility] Comment on above: Order Comment: Speci men Type: BLOOD SPECIMENOrdering Facility: [facility] Address: [address] [place] [address] Performed By: #### 5 7021-8 ####[facility] LABCLIA [id number] [place] [address] Lymphocytes/100 WBC (Bld) 31.6 % Normal [facility] Comment on above: Order Comment: Speci men Type: BLOOD SPECIMENOrdering Facility: [facility] Address: [address] [place] [address] Performed By: #### 5 7021-8 ####[facility] LABCLIA [id number] [place] [address] MCH (RBC) [Entitic mass] 32.7 pg Normal 26.0-34.0 [facility] Comment on above: Order Comment: Speci men Type: BLOOD SPECIMENOrdering Facility: [facility] Address: [address] [place] [address] Performed By: #### 5 7021-8 ####[facility] LABIA [id number] [place] [address] MCHC (RBC) [Mass/Vol] 31.3 g/dL Normal 30.5-36.0 [facility] Comment on above: Order Comment: Speci men Type: BLOOD SPECIMENOrdering Facility: [facility] Address: [address] [place] [address] Performed By: #### 5 7021-8 ####[facility] LABCLIA [id number] [place] [address] MCV (RBC) [Entitic vol] 104.7 fL High 80.0-100.0 [facility] Comment on above: Order Comment: Speci men Type: BLOOD SPECIMENOrdering Facility: [facility] Address: [address] [place] [address] Performed By: #### 5 7021-8 ####[facility] LABIA [id number] [place] [address] Monocytes (Bld) [#/Vol] 0.51 10*3/uL Normal <0.87 [facility] Comment on above: Order Comment: Speci men Type: BLOOD SPECIMENOrdering Facility: [facility] Address: [address] [place] [address] Performed By: #### 5 7021-8 ####[facility] LABCLIA [id number] [place] [address] Monocytes/100 WBC (Bld) 20.6 % Normal [facility] Comment on above: Order Comment: Speci men Type: BLOOD SPECIMENOrdering Facility: [facility] Address: [address] [place] [address] Performed By: #### 5 7021-8 ####[facility] LABCLIA [id number] [place] [address] Neutrophils (Bld) [#/Vol] 1.12 10*3/uL Low 1.45-7.50 [facility] Comment on above: Order Comment: Speci men Type: BLOOD SPECIMENOrdering Facility: [facility] Address: [address] [place] [address] Performed By: #### 5 7021-8 ####[facility] LABCLIA [id number] [place] [address] Neutrophils/100 WBC (Bld) 45.4 % Normal [facility] Comment on above: Order Comment: Speci men Type: BLOOD SPECIMENOrdering Facility: [facility] Address: [address] [place] [address] Performed By: #### 5 7021-8 ####[facility] LABCLIA [id number] [place] [address] Nucleated RBC (Bld) [#/Vol] 10*3/uL Normal <0.01 [facility] Comment on above: Order Comment: Speci men Type: BLOOD SPECIMENOrdering Facility: [facility] Address: [address] [place] [address] Performed By: #### 5 7021-8 ####[facility] LABCLIA [id number] [place] [address] Nucleated RBC/100 WBC (Bld) [Ratio] 0.0 /100 WBC Normal [facility] Comment on above: Order Comment: Speci men Type: BLOOD SPECIMENOrdering Facility: [facility] Address: [address] [place] [address] Performed By: #### 5 7021-8 ####[facility] LABCLIA [id number] [place] [address] Platelet mean volume (Bld) [Entitic vol] 14.2 fL High 9.0-12.7 [facility] Comment on above: Order Comment: Speci men Type: BLOOD SPECIMENOrdering Facility: [facility] Address: [address] [place] [address] Performed By: #### 5 7021-8 ####[facility] LABIA [id number] [place] [address] Platelets (Bld) [#/Vol] 63 10*3/uL Low 150-400 [facility] Comment on above: Order Comment: Speci men Type: BLOOD SPECIMENOrdering Facility: [facility] Address: [address] [place] [address] Result Comment: Resu lts checked and verified. Sample checked for clot Performed By: #### 5 7021-8 ####[facility] LABIA [id number] [place] [address] RBC (Bld) [#/Vol] 2.14 10*6/uL Low 4.20-6.00 [facility] Comment on above: Order Comment: Speci men Type: BLOOD SPECIMENOrdering Facility: [facility] Address: [address] [place] [address] Performed By: #### 5 7021-8 ####[facility] LABCLIA [id number] [place] [address] WBC (Bld) [#/Vol] 2.47 10*3/uL Low 3.70-11.00 [facility] Comment on above: Order Comment: Speci men Type: BLOOD SPECIMENOrdering Facility: [facility] Address: [address] [place] [address] Performed By: #### 5 7021-8 ####[facility] LABCLIA [id number] [place] [address] CNPNon 04-02-2022 CNPN Normal [facility] metabolic 2000 panelon 04-02-2022 Albumin [Mass/Vol] 3.8 g/dL Low 3.9-4.9 [facility] Comment on above: Order Comment: Speci men Type: BLOOD SPECIMENOrdering Facility: [facility] Address: [address] [place] [address] Performed By: #### 2 4323-8, 2532-0 ####[facility] LABCLIA [id number] [place] [address] ALP [Catalytic activity/Vol] 75 U/L Normal 38-113 [facility] Comment on above: Order Comment: Speci men Type: BLOOD SPECIMENOrdering Facility: [facility] Address: [address] [place] [address] Performed By: #### 2 4323-8, 2531-0 ####[facility] LABCLIA [id number] [place] [address] ALT [Catalytic activity/Vol] 30 U/L Normal 10-54 [facility] Comment on above: Order Comment: Speci men Type: BLOOD SPECIMENOrdering Facility: [facility] Address: [address] [place], [place] [address] Performed By: #### 2 4323-8, 2532-0 ####[facility] LABCLIA [id number] [place] [address] Anion gap [Moles/Vol] 9 mmol/L Normal 9-18 [facility] Comment on above: Order Comment: Speci men Type: BLOOD SPECIMENOrdering Facility: [facility] Address: [address] [place] [address] Performed By: #### 2 4328, 2531-0 ####[facility] LABCLIA [id number] [place] [address] AST [Catalytic activity/Vol] 14 U/L Normal 14-40 [facility] Comment on above: Order Comment: Speci men Type: BLOOD SPECIMENOrdering Facility: [facility] Address: [address] [place] [address] Performed By: #### 2 4328, 2531-0 ####[facility] LABCLIA [id number] [place] [address] Bilirubin [Mass/Vol] 0.7 mg/dL Normal 0.2-1.3 [facility] Comment on above: Order Comment: Speci men Type: BLOOD SPECIMENOrdering Facility: [facility] Address: [address] [place] [address] Performed By: #### 2 43210-02, 0 ####[facility] LABIA [id number] [place] [address] Calcium [Mass/Vol] 9.1 mg/dL Normal 8.5-10.2 [facility] Comment on above: Order Comment: Speci men Type: BLOOD SPECIMENOrdering Facility: [facility] Address: [address] [place] [address] Performed By: #### 2 4328, 0 ####[facility] LABCLIA [id number] [place] [address] Chloride [Moles/Vol] 107 mmol/L High 97-105 [facility] Comment on above: Order Comment: Speci men Type: BLOOD SPECIMENOrdering Facility: [facility] Address: [address] [place], [place] [address] Performed By: #### 2 4328, 2531-0 ####[facility] LABCLIA [id number] [place] [address] CO2 [Moles/Vol] 27 mmol/L Normal 22-30 [facility] Comment on above: Order Comment: Speci men Type: BLOOD SPECIMENOrdering Facility: [facility] Address: [address] [place] [address] Performed By: #### 2 4323-8, 2532-0 ####[facility] LABCLIA [id number] [place] [address] Creatinine [Mass/Vol] 1.72 mg/dL High 0.73-1.22 [facility] Comment on above: Order Comment: Speci men Type: BLOOD SPECIMENOrdering Facility: [facility] Address: [address] [place] [address] Performed By: #### 2 4323-8, 2531-0 ####[facility] LABIA [id number] [place] [address] ESTIMATED GLOMERULAR FILTRATION RATE 39 mL/min/1.73m??? Low >=60 [facility] Comment on above: Order Comment: Speci men Type: BLOOD SPECIMENOrdering Facility: [facility] Address: [address] [place] [address] Result Comment: Faye mated Glomerular Filtration Rate [...] GFR. Performed By: #### 2 4323-8, 2532-0 ####[facility] LABIA [id number] [place] [address] Glucose [Mass/Vol] 190 mg/dL High 74-99 [facility] Comment on above: Order Comment: Speci men Type: BLOOD SPECIMENOrdering Facility: [facility] Address: [address] [place] [address] Result Comment: The [place] [employer] (ADA) provides guidance for cutoff [...] Standards of Medical Care in Diabetes 2016, [place] [employer]. Diabetes Care. 2016.39(Suppl 1). Performed By: #### 2 4323-8, 2531-0 ####[facility] LABIA [id number] [place] [address] Potassium [Moles/Vol] 4.3 mmol/L Normal 3.7-5.1 [facility] Comment on above: Order Comment: Speci men Type: BLOOD SPECIMENOrdering Facility: [facility] Address: [address] [place], [place] [address] Performed By: #### 2 43238, 0 ####[facility] LABIA [id number] [place] [address] Protein [Mass/Vol] 5.7 g/dL Low 6.3-8.0 [facility] Comment on above: Order Comment: Speci men Type: BLOOD SPECIMENOrdering Facility: [facility] Address: [address] Performed By: #### 2 43238, 0 ####[facility] LABIA [id number] [place] [address] Sodium [Moles/Vol] 143 mmol/L Normal 136-144 [facility] Comment on above: Order Comment: Speci men Type: BLOOD SPECIMENOrdering Facility: [facility] Address: [address] [id number] Performed By: #### 2 4323-8, 2531-0 ####[facility] LABCLIA [id number] [place] [address] Urea nitrogen [Mass/Vol] 25 mg/dL High 9-24 [facility] Comment on above: Order Comment: Speci men Type: BLOOD SPECIMENOrdering Facility: [facility] Address: [address] [place], [place] [address] Performed By: #### 2 4323-8, 2531-0 ####[facility] LABCLIA [id number] [place] [address] LDH SerPl-cCncon 04-02-2022 LDH [Catalytic activity/Vol] 202 U/L Normal 135-225 [facility] Comment on above: Order Comment: Speci men Type: BLOOD SPECIMENOrdering Facility: [facility] Address: [address] [place] [address] Performed By: #### 2 43238, 0 ####[facility] LABCLIA [id number] [place] [address] CBC W Auto Differential pane l (Bld)on 03-25-2022 Anisocytosis Ql (Bld) Present Normal [facility] Comment on above: Order Comment: Speci men Type: BLOOD SPECIMENOrdering Facility: [facility] Address: [address] [place] [address] Performed By: #### 5 7021-8 ####[facility] LABCLIA [id number] [place], [place] [address] LABCLIA [id number] [facility] [id number] [address] [place] Band form neutrophils/100 WBC (Bld) 0.0 % Normal [facility] Comment on above: Order Comment: Speci men Type: BLOOD SPECIMENOrdering Facility: [facility] Address: [address] [place] [address] Performed By: #### 5 7021-8 ####[facility] LABCLIA [id number] [place] [address] LABCLIA [id number] [place] [address] [place] Basophils/100 WBC (Bld) 1.8 % Normal [facility] Comment on above: Order Comment: Speci men Type: BLOOD SPECIMENOrdering Facility: [facility] Address: [address] [place] [address] Performed By: #### 5 7021-8 ####[facility] LABCLIA [id number] [address] LABCLIA [id number] [place] [address] [place] Differential cell count method Nom (Bld) Manual Normal [facility] Comment on above: Order Comment: Speci men Type: BLOOD SPECIMENOrdering Facility: [facility] Address: [address] [place] [address] Performed By: #### 5 7021-8 ####[facility] LABCLIA [id number] [address] LABCLIA [id number] [place] [address] [place] Eosinophils (Bld) [#/Vol] 0.00 10*3/uL Normal <0.46 [facility] Comment on above: Order Comment: Speci men Type: BLOOD SPECIMENOrdering Facility: [facility] Address: [address] [place] [address] Performed By: #### 5 7021-8 ####[facility] LABCLIA [id number] [address] LABCLIA [id number] [place] [address] [place] Eosinophils/100 WBC (Bld) 0.0 % Normal [facility] Comment on above: Order Comment: Speci men Type: BLOOD SPECIMENOrdering Facility: [facility] Address: [address] [place] [address] Performed By: #### 5 7021-8 ####[facility] LABCLIA [id number] [address] LABCLIA [id number] [place] [address] [place] Erythrocyte distribution width (RBC) [Ratio] 24.5 % High 11.5-15.0 [facility] Comment on above: Order Comment: Speci men Type: BLOOD SPECIMENOrdering Facility: [facility] Address: [address] [place] [address] Performed By: #### 5 7021-8 ####[facility] LABCLIA [id number] [address] LABCLIA [id number] [place] [address] [place] Hematocrit (Bld) [Volume fraction] 26.0 % Low 39.0-51.0 [facility] Comment on above: Order Comment: Speci men Type: BLOOD SPECIMENOrdering Facility: [facility] Address: [address] [place] [address] Performed By: #### 5 7021-8 ####[facility] LABCLIA [id number] [address] LABCLIA [id number] [place] [address] [place] Hemoglobin (Bld) [Mass/Vol] 8.2 g/dL Low 13.0-17.0 [facility] Comment on above: Order Comment: Speci men Type: BLOOD SPECIMENOrdering Facility: [facility] Address: [address] [place] [address] Performed By: #### 5 7021-8 ####[facility] LABCLIA [id number] [address] LABCLIA [id number] [place] [address] [place] Lymphocytes (Bld) [#/Vol] 1.18 10*3/uL Normal 1.00-4.00 [facility] Comment on above: Order Comment: Speci men Type: BLOOD SPECIMENOrdering Facility: [facility] Address: [address] [place] [address] Performed By: #### 5 7021-8 ####[facility] LABCLIA [id number] [address] LABCLIA [id number] [place] [address] [place] Lymphocytes/100 WBC (Bld) 43.2 % Normal [facility] Comment on above: Order Comment: Speci men Type: BLOOD SPECIMENOrdering Facility: [facility] Address: [address] [place] [address] Performed By: #### 5 7021-8 ####[facility] LABCLIA [id number] [address] LABCLIA [id number] [place] [address] [place] MCH (RBC) [Entitic mass] 32.7 pg Normal 26.0-34.0 [facility] Comment on above: Order Comment: Speci men Type: BLOOD SPECIMENOrdering Facility: [facility] Address: [address] [place], [place] [address] Performed By: #### 5 7021-8 ####[facility] LABCLIA [id number] [address] LABCLIA [id number] [place] [address] [place] MCHC (RBC) [Mass/Vol] 31.5 g/dL Normal 30.5-36.0 [facility] Comment on above: Order Comment: Speci men Type: BLOOD SPECIMENOrdering Facility: [facility] Address: [address] [place] [address] Performed By: #### 5 7021-8 ####[facility] LABCLIA [id number] [address] LABCLIA [id number] [place] [address] [place] MCV (RBC) [Entitic vol] 103.6 fL High 80.0-100.0 [facility] Comment on above: Order Comment: Speci men Type: BLOOD SPECIMENOrdering Facility: [facility] Address: [address] [place] [address] Performed By: #### 5 7021-8 ####[facility] LABCLIA [id number] [address] LABCLIA [id number] [place] [address] [place] Neutrophils (Bld) [#/Vol] 1.35 10*3/uL Low 1.45-7.50 [facility] Comment on above: Order Comment: Speci men Type: BLOOD SPECIMENOrdering Facility: [facility] Address: [address] [place] [address] Performed By: #### 5 7021-8 ####[facility] LABCLIA [id number] [address] LABCLIA [id number] [place] [address] [place] Neutrophils/100 WBC (Bld) 49.6 % Normal [facility] Comment on above: Order Comment: Speci men Type: BLOOD SPECIMENOrdering Facility: [facility] Address: [address] [place] [address] Performed By: #### 5 7021-8 ####[facility] LABCLIA [id number] [address] [address] LABCLIA [id number] [place] [address] [place] Nucleated RBC/100 WBC (Bld) [Ratio] 0.0 /100 WBC Normal [facility] Comment on above: Order Comment: Speci men Type: BLOOD SPECIMENOrdering Facility: [facility] Address: [address] [place] [address] Performed By: #### 5 7021-8 ####[facility] LABCLIA [id number] [address] LABCLIA [id number] [place] [address] [place] Ovalocytes LM Ql (Bld) Few Normal [facility] Comment on above: Order Comment: Speci men Type: BLOOD SPECIMENOrdering Facility: [facility] Address: [address] [place] [address] Performed By: #### 5 7021-8 ####[facility] LABCLIA [id number] [address] LABCLIA [id number] [place] [address] [place] PLATELET ESTIMATE Decreased Normal [facility] Comment on above: Order Comment: Speci men Type: BLOOD SPECIMENOrdering Facility: [facility] Address: [address] [place] [address] Performed By: #### 5 7021-8 ####[facility] LABCLIA [id number] [address] LABCLIA [id number] [place] [address] [place] Platelet mean volume (Bld) [Entitic vol] 14.5 fL High 9.0-12.7 [facility] Comment on above: Order Comment: Speci men Type: BLOOD SPECIMENOrdering Facility: [facility] Address: [address] [place] [address] Performed By: #### 5 7021-8 ####[facility] LABCLIA [id number] [address] [address] [address] LABCLIA [id number] [place] [address] [place] Platelets (Bld) [#/Vol] 64 10*3/uL Low 150-400 [facility] Comment on above: Order Comment: Speci men Type: BLOOD SPECIMENOrdering Facility: [facility] Address: [address] [place] [address] Result Comment: Samp le checked for clot Performed By: #### 5 7021-8 ####[facility] LABCLIA [id number] [address] LABCLIA [id number] [place] [address] [place] Platelets agranular LM Ql (Bld) Present Normal [facility] Comment on above: Order Comment: Speci men Type: BLOOD SPECIMENOrdering Facility: [facility] Address: [address] [place] [address] Performed By: #### 5 7021-8 ####[facility] LABCLIA [id number] [address] LABCLIA [id number] [place] [address] [place] Polychromasia LM Ql (Bld) Slight Normal [facility] Comment on above: Order Comment: Speci men Type: BLOOD SPECIMENOrdering Facility: [facility] Address: [address] [place] [address] Performed By: #### 5 7021-8 ####[facility] LABCLIA [id number] [address] LABCLIA [id number] [place] [address] [place] RBC (Bld) [#/Vol] 2.51 10*6/uL Low 4.20-6.00 [facility] Comment on above: Order Comment: Speci men Type: BLOOD SPECIMENOrdering Facility: [facility] Address: [address] [place] [address] Performed By: #### 5 7021-8 ####[facility] LABCLIA [id number] [address] LABCLIA [id number] [place] [address] [place] RBC FRAGMENTS Few Abnormal None Seen [facility] Comment on above: Order Comment: Speci men Type: BLOOD SPECIMENOrdering Facility: [facility] Address: [address] [place] [address] Performed By: #### 5 7021-8 ####[facility] LABCLIA [id number] [address] LABCLIA [id number] [place] [address] [place] RED CELL MORPH Reviewed: see result s of individual morphologies Normal [facility] Comment on above: Order Comment: Speci men Type: BLOOD SPECIMENOrdering Facility: [facility] Address: [address] [place], [place] [address] Performed By: #### 5 7021-8 ####[facility] LABCLIA [id number] [address] LABCLIA [id number] [place] [address] [place] Variant lymphocytes/100 WBC (Bld) 0.0 % Normal [facility] Comment on above: Order Comment: Speci men Type: BLOOD SPECIMENOrdering Facility: [facility] Address: [address] [place], [place] [address] Performed By: #### 5 7021-8 ####[facility] LABCLIA [id number] [address] LABCLIA [id number] [place] [address] [place] WAM - ABS BASO 0.05 k/uL Normal <0.11 [facility] Comment on above: Order Comment: Speci men Type: BLOOD SPECIMENOrdering Facility: [facility] Address: [address] [place] [address] Performed By: #### 5 7021-8 ####[facility] LABCLIA [id number] [address] LABCLIA [id number] [place] [address] [place] WAM - ABS MONO 0.15 k/uL Normal <0.87 [facility] Comment on above: Order Comment: Speci men Type: BLOOD SPECIMENOrdering Facility: [facility] Address: [address] [place] [address] Performed By: #### 5 7021-8 ####[facility] LABCLIA [id number] [address] LABCLIA [id number] [place] [address] [place] WAM - MONO% 5.4 % Normal [facility] Comment on above: Order Comment: Speci men Type: BLOOD SPECIMENOrdering Facility: [facility] Address: [address] [place] [address] Performed By: #### 5 7021-8 ####[facility] LABCLIA [id number] [address] LABCLIA [id number] [place] [address] [place] WAM ABSOLUTE NRBC <0.01 Normal <0.01 [facility] Comment on above: Order Comment: Speci men Type: BLOOD SPECIMENOrdering Facility: [facility] Address: [address] [place] [address] Performed By: #### 5 7021-8 ####[facility] LABCLIA [id number] [place] [address] LABCLIA [id number] [place] [address] [place] WBC (Bld) [#/Vol] 2.72 10*3/uL Low 3.70-11.00 [facility] Comment on above: Order Comment: Speci men Type: BLOOD SPECIMENOrdering Facility: [facility] Address: [address] [place] [address] Performed By: #### 5 7021-8 ####[facility] LABCLIA [id number] [place] [address] LABCLIA [id number] [place] [address] [place] Comprehensive metabolic 2000 panelon 03-25-2022 Albumin [Mass/Vol] 3.9 g/dL Normal 3.9-4.9 [facility] Comment on above: Order Comment: Speci men Type: BLOOD SPECIMENOrdering Facility: [facility] Address: [address] [place], [place] [address] Performed By: #### 2 4323-8, 253-0 ####[facility] LABCLIA [id number] [place] [id number] ALP [Catalytic activity/Vol] 69 U/L Normal 38-113 [facility] Comment on above: Order Comment: Speci men Type: BLOOD SPECIMENOrdering Facility: [facility] Address: [address] [place], [place] [address] Performed By: #### 2 4323-8, 2532-0 ####[facility] LABCLIA [id number] [place] [address] ALT [Catalytic activity/Vol] 40 U/L Normal 10-54 [facility] Comment on above: Order Comment: Speci men Type: BLOOD SPECIMENOrdering Facility: [facility] Address: [address] [place] [address] Performed By: #### 2 4323-8, 2531-0 ####[facility] LABCLIA [id number] [place] [address] Anion gap [Moles/Vol] 11 mmol/L Normal 9-18 [facility] Comment on above: Order Comment: Speci men Type: BLOOD SPECIMENOrdering Facility: [facility] Address: [address] [place] [address] Performed By: #### 2 4323-8, 2531-0 ####[facility] LABCLIA [id number] [place] [address] AST [Catalytic activity/Vol] 17 U/L Normal 14-40 [facility] Comment on above: Order Comment: Speci men Type: BLOOD SPECIMENOrdering Facility: [facility] Address: [address] [place] [address] Performed By: #### 2 432-8, 2531-0 ####[facility] LABCLIA [id number] [place] [address] Bilirubin [Mass/Vol] 0.6 mg/dL Normal 0.2-1.3 [facility] Comment on above: Order Comment: Speci men Type: BLOOD SPECIMENOrdering Facility: [facility] Address: [address] [place], [place] [address] Performed By: #### 2 4323-8, 2531-0 ####[facility] LABCLIA [id number] [place] [address] Calcium [Mass/Vol] 8.9 mg/dL Normal 8.5-10.2 [facility] Comment on above: Order Comment: Speci men Type: BLOOD SPECIMENOrdering Facility: [facility] Address: [address] [place], [place] [address] Performed By: #### 2 4323-8, 2531-0 ####[facility] LABCLIA [id number] [place] [address] Chloride [Moles/Vol] 104 mmol/L Normal 97-105 [facility] Comment on above: Order Comment: Speci men Type: BLOOD SPECIMENOrdering Facility: [facility] Address: [address] [place] [address] Performed By: #### 2 4323-8, 253-0 ####[facility] LABCLIA [id number] [place] [address] CO2 [Moles/Vol] 29 mmol/L Normal 22-30 [facility] Comment on above: Order Comment: Speci men Type: BLOOD SPECIMENOrdering Facility: [facility] Address: [address] [place] [address] Performed By: #### 2 4323-8, 2531-0 ####[facility] LABCLIA [id number] [place] [address] Creatinine [Mass/Vol] 1.89 mg/dL High 0.73-1.22 [facility] Comment on above: Order Comment: Speci men Type: BLOOD SPECIMENOrdering Facility: [facility] Address: [address] [place] [address] Performed By: #### 2 4323-8, 253-0 ####[facility] LABCLIA [id number] [place] [address] ESTIMATED GLOMERULAR FILTRATION RATE 35 mL/min/1.73m??? Low >=60 [facility] Comment on above: Order Comment: Speci men Type: BLOOD SPECIMENOrdering Facility: [facility] Address: [address] [place] [address] Result Comment: Faye mated Glomerular Filtration Rate [...] GFR. Performed By: #### 2 4323-8, 0 ####[facility] LABCLIA [id number] [place] [address] Glucose [Mass/Vol] 214 mg/dL High 74-99 [facility] Comment on above: Order Comment: Speci kateryna Type: BLOOD SPECIMENOrdering Facility: [facility] Address: [address] [id number] Result Comment: The [place] [employer] (ADA) provides guidance for cutoff [...] Standards of Medical Care in Diabetes 2016, [place] [employer]. Diabetes Care. 2016.39(Suppl 1). Performed By: #### 2 4328, ####[facility] LABCLIA [id number] [place] [address] Potassium [Moles/Vol] 4.1 mmol/L Normal 3.7-5.1 [facility] Comment on above: Order Comment: Davi avendaño Type: BLOOD SPECIMENOrdering Facility: [facility] Address: [address] [place] [address] Performed By: #### 2 4323-8, 0 ####[facility] LABCLIA [id number] [place] [address] Protein [Mass/Vol] 5.9 g/dL Low 6.3-8.0 [facility] Comment on above: Order Comment: Speci men Type: BLOOD SPECIMENOrdering Facility: [facility] Address: [address] [place] [address] Performed By: #### 2 4323-8, 2531-0 ####[facility] LABCLIA [id number] [place] [address] Sodium [Moles/Vol] 144 mmol/L Normal 136-144 [facility] Comment on above: Order Comment: Speci men Type: BLOOD SPECIMENOrdering Facility: [facility] Address: [address] [place] [address] Performed By: #### 2 4323-8, 2531-0 ####[facility] LABCLIA [id number] [place] [address] Urea nitrogen [Mass/Vol] 25 mg/dL High 9-24 [facility] Comment on above: Order Comment: Speci men Type: BLOOD SPECIMENOrdering Facility: [facility] Address: [address] [place] [address] Performed By: #### 2 4323-8, 0 ####[facility] LABIA [id number] [place] [address] LDH SerPl-cCncon 03-25-2022 LDH [Catalytic activity/Vol] 230 U/L High 135-225 [facility] Comment on above: Order Comment: Speci men Type: BLOOD SPECIMENOrdering Facility: [facility] Address: [address] [place] [address] Performed By: #### 2 4323-8, 2531-0 ####[facility] LABIA [id number] [place] [address] CNPNon 03-19-2022 CNPN Normal [facility] CBC W Auto Differential pane l (Bld)on 03-18-2022 Anisocytosis Ql (Bld) Present Normal [facility] Comment on above: Order Comment: Speci men Type: BLOOD SPECIMENOrdering Facility: [facility] Address: [address] [place], [place] [address] Performed By: #### 5 7021-8 ####[facility] LABCLIA [id number] [address] LABCLIA [id number] [place] [address] Basophils/100 WBC (Bld) 0.0 % Normal [facility] Comment on above: Order Comment: Speci men Type: BLOOD SPECIMENOrdering Facility: [facility] Address: [address] [place], [place] [address] Performed By: #### 5 7021-8 ####[facility] LABCLIA [id number] [address] LABCLIA [id number] [place] [address] Differential cell count method Nom (Bld) Manual Normal [facility] Comment on above: Order Comment: Speci men Type: BLOOD SPECIMENOrdering Facility: [facility] Address: [address] [place] [address] Performed By: #### 5 7021-8 ####[facility] LABCLIA [id number] [address] LABCLIA [id number] [place] [address] Eosinophils (Bld) [#/Vol] 0.00 10*3/uL Normal <0.46 [facility] Comment on above: Order Comment: Speci men Type: BLOOD SPECIMENOrdering Facility: [facility] Address: [address] [place], [place] [address] Performed By: #### 5 7021-8 ####[facility] LABCLIA [id number] [address] [facility] LABCLIA [id number] [place] [address] Eosinophils/100 WBC (Bld) 0.0 % Normal [facility] Comment on above: Order Comment: Speci men Type: BLOOD SPECIMENOrdering Facility: [facility] Address: [address] [place] [address] Performed By: #### 5 7021-8 ####[facility] LABCLIA [id number] [place] [address] [facility] LABCLIA [id number] [place] [address] Erythrocyte distribution width (RBC) [Ratio] 24.4 % High 11.5-15.0 [facility] Comment on above: Order Comment: Speci men Type: BLOOD SPECIMENOrdering Facility: [facility] Address: [address] [place] [address] Performed By: #### 5 7021-8 ####[facility] LABCLIA [id number] [place] [id number] [facility] LABCLIA [id number] [place] [address] Giant platelets LM Ql (Bld) Occasional Normal [facility] Comment on above: Order Comment: Speci men Type: BLOOD SPECIMENOrdering Facility: [facility] Address: [address] [place] [address] Performed By: #### 5 7021-8 ####[facility] LABCLIA [id number] [place] [id number] [facility] LABCLIA [id number] [place] [address] Hematocrit (Bld) [Volume fraction] 29.4 % Low 39.0-51.0 [facility] Comment on above: Order Comment: Speci men Type: BLOOD SPECIMENOrdering Facility: [facility] Address: [address] [place], [place] [address] Performed By: #### 5 7021-8 ####[facility] LABCLIA [id number] [address] LABCLIA [id number] [place] [address] Hemoglobin (Bld) [Mass/Vol] 9.3 g/dL Low 13.0-17.0 [facility] Comment on above: Order Comment: Speci men Type: BLOOD SPECIMENOrdering Facility: [facility] Address: [address] [place], [place] [address] Performed By: #### 5 7021-8 ####[facility] LABCLIA [id number] [address] LABCLIA [id number] [place] [address] Lymphocytes (Bld) [#/Vol] 0.83 10*3/uL Low 1.00-4.00 [facility] Comment on above: Order Comment: Speci men Type: BLOOD SPECIMENOrdering Facility: [facility] Address: [address] [place] [address] Performed By: #### 5 7021-8 ####[facility] LABCLIA [id number] [address] LABCLIA [id number] [place] [address] Lymphocytes/100 WBC (Bld) 24.8 % Normal [facility] Comment on above: Order Comment: Speci men Type: BLOOD SPECIMENOrdering Facility: [facility] Address: [address] [place] [address] Performed By: #### 5 7021-8 ####[facility] LABCLIA [id number] [address] LABCLIA [id number] [place] [address] MCH (RBC) [Entitic mass] 32.2 pg Normal 26.0-34.0 [facility] Comment on above: Order Comment: Speci men Type: BLOOD SPECIMENOrdering Facility: [facility] Address: [address] [place] [address] Performed By: #### 5 7021-8 ####[facility] LABIA [id number] [address] LABCLIA [id number] [place] [address] MCHC (RBC) [Mass/Vol] 31.6 g/dL Normal 30.5-36.0 [facility] Comment on above: Order Comment: Speci men Type: BLOOD SPECIMENOrdering Facility: [facility] Address: [address] [place] [address] Performed By: #### 5 7021-8 ####[facility] LABIA [id number] [address] LABCLIA [id number] [place] [address] MCV (RBC) [Entitic vol] 101.7 fL High 80.0-100.0 [facility] Comment on above: Order Comment: Speci men Type: BLOOD SPECIMENOrdering Facility: [facility] Address: [address] [place] [address] Performed By: #### 5 7021-8 ####[facility] LABIA [id number] [address] LABIA [id number] [place] [address] Metamyelocytes/100 WBC (Bld) 1.8 % Normal [facility] Comment on above: Order Comment: Speci men Type: BLOOD SPECIMENOrdering Facility: [facility] Address: [address] [place], [place] [address] Performed By: #### 5 7021-8 ####[facility] LABCLIA [id number] [address] LABCLIA [id number] [place] [address] MYELO% 2.7 % Normal [facility] Comment on above: Order Comment: Speci men Type: BLOOD SPECIMENOrdering Facility: [facility] Address: [address] [place], [place] [address] Performed By: #### 5 7021-8 ####[facility] LABCLIA [id number] [address] LABCLIA [id number] [place] [address] Neutrophils (Bld) [#/Vol] 2.17 10*3/uL Normal 1.45-7.50 [facility] Comment on above: Order Comment: Speci men Type: BLOOD SPECIMENOrdering Facility: [facility] Address: [address] [place], [place] [address] Performed By: #### 5 7021-8 ####[facility] LABCLIA [id number] [address] LABCLIA [id number] [place] [address] Neutrophils/100 WBC (Bld) 64.5 % Normal [facility] Comment on above: Order Comment: Speci men Type: BLOOD SPECIMENOrdering Facility: [facility] Address: [address] [place] [address] Performed By: #### 5 7021-8 ####[facility] LABCLIA [id number] [address] LABCLIA [id number] [place] [address] Nucleated RBC/100 WBC (Bld) [Ratio] 1.8 /100 WBC Normal [facility] Comment on above: Order Comment: Speci men Type: BLOOD SPECIMENOrdering Facility: [facility] Address: [address] [place] [address] Performed By: #### 5 7021-8 ####[facility] LABCLIA [id number] [place] [address] [facility] LABCLIA [id number] [place] [address] Ovalocytes LM Ql (Bld) Few Normal [facility] Comment on above: Order Comment: Speci men Type: BLOOD SPECIMENOrdering Facility: [facility] Address: [address] [place] [address] Performed By: #### 5 7021-8 ####[facility] LABCLIA [id number] [address] LABCLIA [id number] [place] [address] PLATELET ESTIMATE Decreased Normal [facility] Comment on above: Order Comment: Speci men Type: BLOOD SPECIMENOrdering Facility: [facility] Address: [address] [place] [address] Performed By: #### 5 7021-8 ####[facility] LABCLIA [id number] [address] LABCLIA [id number] [place] [address] Platelet mean volume (Bld) [Entitic vol] Normal [facility] Comment on above: Order Comment: Speci men Type: BLOOD SPECIMENOrdering Facility: [facility] Address: [address] [place], [place] [address] Result Comment: Unab le to Report. Performed By: #### 5 7021-8 ####[facility] LABCLIA [id number] [address] [address] [facility] LABCLIA [id number] [place] [address] Platelets (Bld) [#/Vol] 124 10*3/uL Low 150-400 [facility] Comment on above: Order Comment: Speci men Type: BLOOD SPECIMENOrdering Facility: [facility] Address: [address] [place] [address] Performed By: #### 5 7021-8 ####[facility] LABCLIA [id number] [address] LABCLIA [id number] [place] [address] Polychromasia LM Ql (Bld) Slight Normal [facility] Comment on above: Order Comment: Speci men Type: BLOOD SPECIMENOrdering Facility: [facility] Address: [address] [place] [address] Performed By: #### 5 7021-8 ####[facility] LABCLIA [id number] [address] LABCLIA [id number] [place] [address] RBC (Bld) [#/Vol] 2.89 10*6/uL Low 4.20-6.00 [facility] Comment on above: Order Comment: Speci men Type: BLOOD SPECIMENOrdering Facility: [facility] Address: [address] [place], [place] [address] Performed By: #### 5 7021-8 ####[facility] LABCLIA [id number] [address] LABCLIA [id number] [place] [address] RBC FRAGMENTS Few Abnormal None Seen [facility] Comment on above: Order Comment: Speci men Type: BLOOD SPECIMENOrdering Facility: [facility] Address: [address] [place], [place] [address] Performed By: #### 5 7021-8 ####[facility] LABCLIA [id number] [address] LABCLIA [id number] [place] [address] RED CELL MORPH Reviewed: see result s of individual morphologies Normal [facility] Comment on above: Order Comment: Speci men Type: BLOOD SPECIMENOrdering Facility: [facility] Address: [address] [place], [place] [address] Performed By: #### 5 7021-8 ####[facility] LABCLIA [id number] [address] LABCLIA [id number] [place] [address] Variant lymphocytes/100 WBC (Bld) 0.0 % Normal [facility] Comment on above: Order Comment: Speci men Type: BLOOD SPECIMENOrdering Facility: [facility] Address: [address] [place] [address] Performed By: #### 5 7021-8 ####[facility] LABCLIA [id number] [address] LABCLIA [id number] [place] [id number] WAM - ABS BASO 0.00 k/uL Normal <0.11 [facility] Comment on above: Order Comment: Speci men Type: BLOOD SPECIMENOrdering Facility: [facility] Address: [address] [place] [address] Performed By: #### 5 7021-8 ####[facility] LABCLIA [id number] [address] LABCLIA [id number] [place] [address] WAM - ABS MONO 0.21 k/uL Normal <0.87 [facility] Comment on above: Order Comment: Speci men Type: BLOOD SPECIMENOrdering Facility: [facility] Address: [address] [place], [place] [address] Performed By: #### 5 7021-8 ####[facility] LABCLIA [id number] [address] LABCLIA [id number] [place] [address] WAM - MONO% 6.2 % Normal [facility] Comment on above: Order Comment: Speci men Type: BLOOD SPECIMENOrdering Facility: [facility] Address: [address] [place] [address] Performed By: #### 5 7021-8 ####[facility] LABCLIA [id number] [address] LABCLIA [id number] [place] [id number] WAM ABSOLUTE NRBC 0.06 k/uL High <0.01 [facility] Comment on above: Order Comment: Speci men Type: BLOOD SPECIMENOrdering Facility: [facility] Address: [address] [place] [address] Result Comment: This result was previously suppressed from the chart. Performed By: #### 5 7021-8 ####[facility] LABCLIA [id number] [address] LABCLIA [id number] [place] [id number] WBC (Bld) [#/Vol] 3.36 10*3/uL Low 3.70-11.00 [facility] Comment on above: Order Comment: Speci men Type: BLOOD SPECIMENOrdering Facility: [facility] Address: [address] [place], [place] [address] Performed By: #### 5 7021-8 ####[facility] LABCLIA [id number] [address] [address] [facility] LABCLIA [id number] [place] [address] WBC Left Shift Ql (Bld) Present Normal [facility] Comment on above: Order Comment: Speci men Type: BLOOD SPECIMENOrdering Facility: [facility] Address: [address] [place], [place] [address] Performed By: #### 5 7021-8 ####[facility] LABCLIA [id number] [address] LABCLIA [id number] [place] [address] CNPNon 03-18-2022 CNPN Normal [facility] Comprehensive metabolic 2000 panelon 03-18-2022 Albumin [Mass/Vol] 3.8 g/dL Low 3.9-4.9 [facility] Comment on above: Order Comment: Speci men Type: BLOOD SPECIMENOrdering Facility: [facility] Address: [address] [place] [address] Performed By: #### 2 4323-8, 2532-0 ####[facility] LABCLIA [id number] [place] [address] ALP [Catalytic activity/Vol] 67 U/L Normal 38-113 [facility] Comment on above: Order Comment: Speci men Type: BLOOD SPECIMENOrdering Facility: [facility] Address: [address] [place] [address] Performed By: #### 2 4323-8, 2532-0 ####[facility] LABCLIA [id number] [place] [address] ALT [Catalytic activity/Vol] 57 U/L High 10-54 [facility] Comment on above: Order Comment: Speci men Type: BLOOD SPECIMENOrdering Facility: [facility] Address: [address] [place], [place] [address] Performed By: #### 2 4323-8, 253-0 ####[facility] LABCLIA [id number] [place] [address] Anion gap [Moles/Vol] 9 mmol/L Normal 9-18 [facility] Comment on above: Order Comment: Speci men Type: BLOOD SPECIMENOrdering Facility: [facility] Address: [address] [place] [address] Performed By: #### 2 4323-8, 2531-0 ####[facility] LABCLIA [id number] [place] [address] AST [Catalytic activity/Vol] 21 U/L Normal 14-40 [facility] Comment on above: Order Comment: Speci men Type: BLOOD SPECIMENOrdering Facility: [facility] Address: [address] [place], [place] [address] Performed By: #### 2 4323-8, 2531-0 ####[facility] LABCLIA [id number] [place] [address] Bilirubin [Mass/Vol] 0.8 mg/dL Normal 0.2-1.3 [facility] Comment on above: Order Comment: Speci men Type: BLOOD SPECIMENOrdering Facility: [facility] Address: [address] [place] [address] Performed By: #### 2 4323-8, 253-0 ####[facility] LABCLIA [id number] [place] [address] Calcium [Mass/Vol] 9.0 mg/dL Normal 8.5-10.2 [facility] Comment on above: Order Comment: Speci men Type: BLOOD SPECIMENOrdering Facility: [facility] Address: [address] [place] [address] Performed By: #### 2 4323-8, 2-0 ####[facility] LABCLIA [id number] [place] [address] Chloride [Moles/Vol] 102 mmol/L Normal 97-105 [facility] Comment on above: Order Comment: Speci men Type: BLOOD SPECIMENOrdering Facility: [facility] Address: [address] [place] [address] Performed By: #### 2 4323-8, 253-0 ####[facility] LABCLIA [id number] [place] [address] CO2 [Moles/Vol] 33 mmol/L High 22-30 [facility] Comment on above: Order Comment: Speci men Type: BLOOD SPECIMENOrdering Facility: [facility] Address: [address] [place] [address] Performed By: #### 2 4323-8, 2531-0 ####[facility] LABCLIA [id number] [place] [address] Creatinine [Mass/Vol] 1.91 mg/dL High 0.73-1.22 [facility] Comment on above: Order Comment: Speci men Type: BLOOD SPECIMENOrdering Facility: [facility] Address: [address] [place] [address] Performed By: #### 2 4323-8, 2531-0 ####[facility] LABCLIA [id number] [place] [address] ESTIMATED GLOMERULAR FILTRATION RATE 34 mL/min/1.73m??? Low >=60 [facility] Comment on above: Order Comment: Speci men Type: BLOOD SPECIMENOrdering Facility: [facility] Address: [address] [place] [address] Result Comment: Faye mated Glomerular Filtration Rate [...] actual GFR. Performed By: #### 2 4323-8, ####[facility] LABCLIA [id number] [place] [address] Glucose [Mass/Vol] 261 mg/dL High 74-99 [facility] Comment on above: Order Comment: Speci men Type: BLOOD SPECIMENOrdering Facility: [facility] Address: [address] [place] [address] Result Comment: The [place] [employer] (ADA) provides guidance for cutoff [...] Standards of Medical Care in Diabetes 2016, [place] [employer]. Diabetes Care. 2016.39(Suppl 1). Performed By: #### 2 [address], ####[facility] LABCLIA [id number] [place] [address] Potassium [Moles/Vol] 3.6 mmol/L Low 3.7-5.1 [facility] Comment on above: Order Comment: Speci men Type: BLOOD SPECIMENOrdering Facility: [facility] Address: [address] [place] [address] Performed By: #### 2 4323-8, ####[facility] LABCLIA [id number] [place] [address] Protein [Mass/Vol] 5.8 g/dL Low 6.3-8.0 [facility] Comment on above: Order Comment: Speci men Type: BLOOD SPECIMENOrdering Facility: [facility] Address: [address] [place] [address] Performed By: #### 2 4323-8, 2532-0 ####[facility] LABCLIA [id number] [place] [address] Sodium [Moles/Vol] 144 mmol/L Normal 136-144 [facility] Comment on above: Order Comment: Speci men Type: BLOOD SPECIMENOrdering Facility: [facility] Address: [address] [place] [address] Performed By: #### 2 4323-8, 2532-0 ####[facility] LABCLIA [id number] [place] [address] Urea nitrogen [Mass/Vol] 39 mg/dL High 9-24 [facility] Comment on above: Order Comment: Speci men Type: BLOOD SPECIMENOrdering Facility: [facility] Address: [address] [place] [address] Performed By: #### 2 4323-8, 2-0 ####[facility] LABCLIA [id number] [place] [address] LDH SerPl-cCncon 03-18-2022 LDH [Catalytic activity/Vol] 246 U/L High 135-225 [facility] Comment on above: Order Comment: Speci men Type: BLOOD SPECIMENOrdering Facility: [facility] Address: [address] [place] [address] Performed By: #### 2 4323-8, 2532-0 ####[facility] LABIA [id number] [place] [address] CNPNon 03-14-2022 CNPN Normal [facility] PRBC LEUKOREDUCEDon 03-12-20 ABO and Rh group Nom (Bld) Cross Match Result Compatible Unit Blood Type A Pos Unit Number [id number] Status Information Transfused Product ID Red Blood Cells Product Code [id number] Cross Match Result Compatible Unit Blood Type A Pos Unit Number [id number] Status Information Transfused Product ID Red Blood Cells Product Code [id number] Normal [facility] Comment on above: Performed By: #### T NS, PRBC #### [facility] [address] [place] [address] Dr. Benito To CBC W Auto Differential pane l (Bld)on 03-11-2022 Erythrocyte distribution width (RBC) [Ratio] 25.5 % High 11.5-15.0 [facility] Comment on above: Order Comment: Speci men Type: BLOOD SPECIMENOrdering Facility: [facility] Address: [address] [place] [address] Performed By: #### 5 7021-8 ####[facility] LABCLIA [id number] [place] [address]#### [id number] ####[facility] LABCLIA [id number] [place] [address] [place] Hematocrit (Bld) [Volume fraction] 22.2 % Low 39.0-51.0 [facility] Comment on above: Order Comment: Speci men Type: BLOOD SPECIMENOrdering Facility: [facility] Address: [address] [place] [address] Performed By: #### 5 7021-8 ####[facility] LABCLIA [id number] [place] [address]#### [id number] ####[facility] LABCLIA [id number] [place] [address] [place] Hemoglobin (Bld) [Mass/Vol] 6.9 g/dL Low 13.0-17.0 [facility] Comment on above: Order Comment: Speci men Type: BLOOD SPECIMENOrdering Facility: [facility] Address: [address] [place] [address] Performed By: #### 5 7021-8 ####[facility] LABCLIA [id number] [place] [address]#### [id number] ####[facility] LABCLIA [id number] [place] [address] [place] MCH (RBC) [Entitic mass] 33.5 pg Normal 26.0-34.0 [facility] Comment on above: Order Comment: Speci men Type: BLOOD SPECIMENOrdering Facility: [facility] Address: [address] [place] [address] Performed By: #### 5 7021-8 ####[facility] LABCLIA [id number] [place] [address]#### [id number] ####[facility] LABCLIA [id number] [place] [address] [place] MCHC (RBC) [Mass/Vol] 31.1 g/dL Normal 30.5-36.0 [facility] Comment on above: Order Comment: Speci men Type: BLOOD SPECIMENOrdering Facility: [facility] Address: [address] [place], [place] [address] Performed By: #### 5 7021-8 ####[facility] LABCLIA [id number] [place] [address]#### [id number] ####[facility] LABCLIA [id number] [place] [address] [place] MCV (RBC) [Entitic vol] 107.8 fL High 80.0-100.0 [facility] Comment on above: Order Comment: Speci men Type: BLOOD SPECIMENOrdering Facility: [facility] Address: [address] [place] [address] Performed By: #### 5 7021-8 ####[facility] LABCLIA [id number] [place] [address]#### [id number] ####[facility] LABCLIA [id number] [place] [address] [place] Platelet mean volume (Bld) [Entitic vol] 13.7 fL High 9.0-12.7 [facility] Comment on above: Order Comment: Speci men Type: BLOOD SPECIMENOrdering Facility: [facility] Address: [address] [place], [place] [address] Performed By: #### 5 7021-8 ####[facility] LABCLIA [id number] [place] [address]#### [id number] ####[facility] LABCLIA [id number] [place] [address] [place] Platelets (Bld) [#/Vol] 119 10*3/uL Low 150-400 [facility] Comment on above: Order Comment: Speci men Type: BLOOD SPECIMENOrdering Facility: [facility] Address: [address] [place] [address] Result Comment: Samp le checked for clot Performed By: #### 5 7021-8 ####[facility] LABCLIA [id number] [place] [address]#### [id number] ####[facility] LABCLIA [id number] [place] [address] [place] RBC (Bld) [#/Vol] 2.06 10*6/uL Low 4.20-6.00 [facility] Comment on above: Order Comment: Speci men Type: BLOOD SPECIMENOrdering Facility: [facility] Address: [address] [place] [address] Performed By: #### 5 7021-8 ####[facility] LABCLIA [id number] [place] [address]#### [id number] ####[facility] LABCLIA [id number] [place] [address] [place] WBC (Bld) [#/Vol] 1.70 10*3/uL Low 3.70-11.00 [facility] Comment on above: Order Comment: Speci men Type: BLOOD SPECIMENOrdering Facility: [facility] Address: [address] [place] [address] Result Comment: [facility] Performed By: #### 5 7021-8 ####[facility] LABCLIA [id number] [place] [address]#### [id number] ####[facility] LABCLIA [id number] [place] [address] [place] CNOVSPon 03-11-2022 CNOVSP Normal [facility] CNPNon 03-11-2022 CNPN Normal [facility] Comprehensive metabolic 2000 panelon 03-11-2022 Albumin [Mass/Vol] 3.8 g/dL Low 3.9-4.9 [facility] Comment on above: Order Comment: Speci men Type: BLOOD SPECIMENOrdering Facility: [facility] Address: [address] [place], [place] [id number] Performed By: #### 2 532-0, 38700-8 ####[facility] LABCLIA [id number] [place] [address] ALP [Catalytic activity/Vol] 70 U/L Normal 38-113 [facility] Comment on above: Order Comment: Speci men Type: BLOOD SPECIMENOrdering Facility: [facility] Address: [address] [place], [place] [address] Performed By: #### 2 532-0, 29292-9 ####[facility] LABCLIA [id number] [place] [address] ALT [Catalytic activity/Vol] 19 U/L Normal 10-54 [facility] Comment on above: Order Comment: Speci men Type: BLOOD SPECIMENOrdering Facility: [facility] Address: [address] [place], [place] [address] Performed By: #### 2 532-0, ####[facility] LABCLIA [id number] [place] [address] Anion gap [Moles/Vol] 12 mmol/L Normal 9-18 [facility] Comment on above: Order Comment: Speci men Type: BLOOD SPECIMENOrdering Facility: [facility] Address: [address] [place] [address] Performed By: #### 2 532-0, ####[facility] LABCLIA [id number] [place] [address] AST [Catalytic activity/Vol] 11 U/L Low 14-40 [facility] Comment on above: Order Comment: Speci men Type: BLOOD SPECIMENOrdering Facility: [facility] Address: [address] [place] [address] Performed By: #### 2 532-0, ####[facility] LABCLIA [id number] [place] [address] Bilirubin [Mass/Vol] 0.6 mg/dL Normal 0.2-1.3 [facility] Comment on above: Order Comment: Speci men Type: BLOOD SPECIMENOrdering Facility: [facility] Address: [address] [place] [address] Performed By: #### 2 532-0, ####[facility] LABCLIA [id number] [place] [address] Calcium [Mass/Vol] 8.6 mg/dL Normal 8.5-10.2 [facility] Comment on above: Order Comment: Speci men Type: BLOOD SPECIMENOrdering Facility: [facility] Address: [address] [place] [address] Performed By: #### 2 532-0, 86637-8 ####[facility] LABCLIA [id number] [place] [address] Chloride [Moles/Vol] 106 mmol/L High 97-105 [facility] Comment on above: Order Comment: Speci men Type: BLOOD SPECIMENOrdering Facility: [facility] Address: [address] [place] [address] Performed By: #### 2 532-0, ####[facility] LABCLIA [id number] [place] [address] CO2 [Moles/Vol] 27 mmol/L Normal 22-30 [facility] Comment on above: Order Comment: Speci men Type: BLOOD SPECIMENOrdering Facility: [facility] Address: [address] [place] [address] Performed By: #### 2 532-0, ####[facility] LABCLIA [id number] [place] [address] Creatinine [Mass/Vol] 1.86 mg/dL High 0.73-1.22 [facility] Comment on above: Order Comment: Speci men Type: BLOOD SPECIMENOrdering Facility: [facility] Address: [address] [place] [address] Performed By: #### 2 532-0, ####[facility] LABCLIA [id number] [place] [address] ESTIMATED GLOMERULAR FILTRATION RATE 35 mL/min/1.73m??? Low >=60 [facility] Comment on above: Order Comment: Speci men Type: BLOOD SPECIMENOrdering Facility: [facility] Address: [address] [place] [address] Result Comment: Faye mated Glomerular Filtration Rate [...] actual GFR. Performed By: #### 2 532-0, ####[facility] LABCLIA [id number] [place] [address] Glucose [Mass/Vol] 214 mg/dL High 74-99 [facility] Comment on above: Order Comment: Speci men Type: BLOOD SPECIMENOrdering Facility: [facility] Address: [address] [place] [address] Result Comment: The [place] [employer] (ADA) provides guidance for cutoff [...] Standards of Medical Care in Diabetes 2016, [place] [employer]. Diabetes Care. 2016.39(Suppl 1). Performed By: #### 2 532-0, 10647-7 ####[facility] LABCLIA [id number] [place] [address] Potassium [Moles/Vol] 3.8 mmol/L Normal 3.7-5.1 [facility] Comment on above: Order Comment: Speci men Type: BLOOD SPECIMENOrdering Facility: [facility] Address: [address] [place], [place] [address] Performed By: #### 2 532-0, ####[facility] LABCLIA [id number] [place] [address] Protein [Mass/Vol] 5.8 g/dL Low 6.3-8.0 [facility] Comment on above: Order Comment: Speci men Type: BLOOD SPECIMENOrdering Facility: [facility] Address: [address] [place], [place] [address] Performed By: #### 2 532-0, ####[facility] LABCLIA [id number] [place] [address] Sodium [Moles/Vol] 145 mmol/L High 136-144 [facility] Comment on above: Order Comment: Speci men Type: BLOOD SPECIMENOrdering Facility: [facility] Address: [address] [place] [address] Performed By: #### 2 532-0, 69503-1 ####[facility] LABCLIA [id number] [place] [address] Urea nitrogen [Mass/Vol] 17 mg/dL Normal 9-24 [facility] Comment on above: Order Comment: Speci men Type: BLOOD SPECIMENOrdering Facility: [facility] Address: [address] [place] [address] Performed By: #### 2 532-0, 61624-3 ####[facility] LABCLIA [id number] [place] [id number] HEMOGRAM AND PLATELon 2021 Hematocrit (Bld) [Volume fraction] 23.0 % Critically low 42.0-54.0 [facility] Comment on above: Performed By: #### T NS, PRBC #### [facility] [address] [place] [address] Dr. Benito To Hemoglobin (Bld) [Mass/Vol] 7.1 g/dL Critically low 14.0-18.0 [facility] Comment on above: Performed By: #### T NS, PRBC #### [facility] [address] [address] [address] Benito To MCH (RBC) [Entitic mass] 33.6 pg Normal 25.9-34.0 [facility] Comment on above: Performed By: #### T NS, PRBC #### [facility] [address] [place] [address] Dr. Benito To MCHC (RBC) [Mass/Vol] 30.9 g/dL Normal 29.9-35.2 [facility] Comment on above: Performed By: #### T NS, PRBC #### [facility] [address] [address] [address] Benito To MCV (RBC) [Entitic vol] 109.0 fL Critically high 80.0-94.0 [facility] Comment on above: Performed By: #### T NS, PRBC #### [facility] [address] [place] [address] [address] Benito To PLT 108 103/ul Critically low 150-450 [facility] Comment on above: Performed By: #### T NS, PRBC #### [facility] [address] [place] [address] [address] Benito To RBC 2.11 106/ul Critically low 4.70-6.10 [facility] Comment on above: Performed By: #### T NS, PRBC #### [facility] [address] [address] [address] Benito To WBC 2.0 103/ul Critically low 4.0-11.0 [facility] Comment on above: Performed By: #### T NS, PRBC #### [facility] [address] [place] [address] [address] Benito To LDH SerPl-cCncon 03-11-2022 LDH [Catalytic activity/Vol] 213 U/L Normal 135-225 [facility] Comment on above: Order Comment: Speci men Type: BLOOD SPECIMENOrdering Facility: [facility] Address: [address] [place] [address] Performed By: #### 2 532-0, 24159-5 ####[facility] LABCLIA [id number] [place] [address] MANUAL SCAN/DIFFon 2 ANC (SEG + BAND) MANUAL DIFF 0.56 k/uL Low 1.45-7.50 [facility] Comment on above: Order Comment: Speci men Type: BLOOD SPECIMENOrdering Facility: [facility] Address: [address] [place] [address] Performed By: #### 5 7021-8 ####[facility] LABCLIA [id number] [place] [address]#### [id number] ####[facility] LABCLIA [id number] [place] [address] [place] ANISOCYTOSIS Present Normal [facility] Comment on above: Order Comment: Speci men Type: BLOOD SPECIMENOrdering Facility: [facility] Address: [address] [place] [address] Performed By: #### 5 7021-8 ####[facility] LABCLIA [id number] [place] [address]#### [id number] ####[facility] LABCLIA [id number] [place] [address] [place] Basophils (Bld) [#/Vol] 0.03 10*3/uL Normal <0.11 [facility] Comment on above: Order Comment: Speci men Type: BLOOD SPECIMENOrdering Facility: [facility] Address: [address] [place] [address] Performed By: #### 5 7021-8 ####[facility] LABCLIA [id number] [place] [address]#### [id number] ####[facility] LABCLIA [id number] [place] [address] [place] Basophils/100 WBC (Bld) 2.0 % Normal [facility] Comment on above: Order Comment: Speci men Type: BLOOD SPECIMENOrdering Facility: [facility] Address: [address] [id number] Performed By: #### 5 7021-8 ####[facility] LABCLIA [id number] [place] [address]#### [id number] ####[facility] LABCLIA [id number] [place] [address] [place] CELLS COUNTED 100 Counted Normal [facility] Comment on above: Order Comment: Speci men Type: BLOOD SPECIMENOrdering Facility: [facility] Address: [address] [place], [place] [address] Performed By: #### 5 7021-8 ####[facility] LABCLIA [id number] [place] [address]#### [id number] ####[facility] LABCLIA [id number] [place] [address] [place] Eosinophils (Bld) [#/Vol] 0.00 10*3/uL Normal <0.46 [facility] Comment on above: Order Comment: Speci men Type: BLOOD SPECIMENOrdering Facility: [facility] Address: [address] [place] [address] Performed By: #### 5 7021-8 ####[facility] LABCLIA [id number] [place] [address]#### [id number] ####[facility] LABCLIA [id number] [place] [address] [place] Eosinophils/100 WBC (Bld) 0.0 % Normal [facility] Comment on above: Order Comment: Speci men Type: BLOOD SPECIMENOrdering Facility: [facility] Address: [address] [place] [address] Performed By: #### 5 7021-8 ####[facility] LABCLIA [id number] [place] [address]#### [id number] ####[facility] LABCLIA [id number] [place] [address] [place] Giant platelets LM Ql (Bld) Occasional Normal [facility] Comment on above: Order Comment: Speci men Type: BLOOD SPECIMENOrdering Facility: [facility] Address: [address] [place], [place] [address] Performed By: #### 5 7021-8 ####[facility] LABCLIA [id number] [place] [address]#### [id number] ####[facility] LABCLIA [id number] [place] [address] [place] Lymphocytes (Bld) [#/Vol] 0.77 10*3/uL Low 1.00-4.00 [facility] Comment on above: Order Comment: Speci men Type: BLOOD SPECIMENOrdering Facility: [facility] Address: [address] [place], [place] [address] Performed By: #### 5 7021-8 ####[facility] LABCLIA [id number] [place] [address]#### [id number] ####[facility] LABCLIA [id number] [place] [address] [place] Lymphocytes/100 WBC (Bld) 45.0 % Normal [facility] Comment on above: Order Comment: Speci men Type: BLOOD SPECIMENOrdering Facility: [facility] Address: [address] [place] [address] Performed By: #### 5 7021-8 ####[facility] LABCLIA [id number] [place] [address]#### [id number] ####[facility] LABCLIA [id number] [place] [address] [place] Monocytes (Bld) [#/Vol] 0.34 10*3/uL Normal <0.87 [facility] Comment on above: Order Comment: Speci men Type: BLOOD SPECIMENOrdering Facility: [facility] Address: [address] [place], [place] [address] Performed By: #### 5 7021-8 ####[facility] LABCLIA [id number] [place] [address]#### [id number] ####[facility] LABCLIA [id number] [place] [address] [place] Monocytes/100 WBC (Bld) 20.0 % Normal [facility] Comment on above: Order Comment: Speci men Type: BLOOD SPECIMENOrdering Facility: [facility] Address: [address] [place] [address] Performed By: #### 5 7021-8 ####[facility] LABCLIA [id number] [place] [address]#### [id number] ####[facility] LABCLIA [id number] [place] [address] [place] Neutrophils/100 WBC (Bld) 33.0 % Normal [facility] Comment on above: Order Comment: Speci men Type: BLOOD SPECIMENOrdering Facility: [facility] Address: [address] [place] [address] Performed By: #### 5 7021-8 ####[facility] LABCLIA [id number] [place] [address]#### [id number] ####[facility] LABCLIA [id number] [place] [address] [place] Ovalocytes LM Ql (Bld) Few Normal [facility] Comment on above: Order Comment: Speci men Type: BLOOD SPECIMENOrdering Facility: [facility] Address: [address] [place], [place] [address] Performed By: #### 5 7021-8 ####[facility] LABCLIA [id number] [place] [address]#### [id number] ####[facility] LABCLIA [id number] [place] [address] [place] PLATELET ESTIMATE Decreased Normal [facility] Comment on above: Order Comment: Speci men Type: BLOOD SPECIMENOrdering Facility: [facility] Address: [address] [place] [address] Performed By: #### 5 7021-8 ####[facility] LABCLIA [id number] [place] [address]#### [id number] ####[facility] LABCLIA [id number] [place] [address] [place] Polychromasia LM Ql (Bld) Slight Normal [facility] Comment on above: Order Comment: Speci men Type: BLOOD SPECIMENOrdering Facility: [facility] Address: [address] [place] [address] Performed By: #### 5 7021-8 ####[facility] LABCLIA [id number] [place] [address]#### [id number] ####[facility] LABCLIA [id number] [place] [address] [place] RBC FRAGMENTS Few Abnormal None Seen [facility] Comment on above: Order Comment: Speci men Type: BLOOD SPECIMENOrdering Facility: [facility] Address: [address] [place] [address] Performed By: #### 5 7021-8 ####[facility] LABCLIA [id number] [place] [address]#### [id number] ####[facility] LABCLIA [id number] [place] [address] [place] RED CELL MORPH Reviewed: see result s of individual morphologies Normal [facility] Comment on above: Order Comment: Speci men Type: BLOOD SPECIMENOrdering Facility: [facility] Address: [address] [place], [place] [address] Performed By: #### 5 7021-8 ####[facility] LABCLIA [id number] [place] [address]#### [id number] ####[facility] LABCLIA [id number] [place] [id number] [place] TYPE AND SCREENon 03-11-2022 TYPE AND SCREEN Negative Normal [facility] Comment on above: Performed By: #### T NS, PRBC #### [facility] [address] [place] [address] Dr. Benito To PRBC LEUKOREDUCEDon 03-05-20 22 ABO and Rh group Nom (Bld) Cross Match Result Compatible Unit Blood Type A Pos Unit Number [id number] Status Information Transfused Product ID Red Blood Cells Product Code [id number] Cross Match Result Compatible Unit Blood Type A Pos Unit Number [id number] Status Information Transfused Product ID Red Blood Cells Product Code [id number] Normal [facility] Comment on above: Performed By: #### P RBC, TNS #### [facility] [address] [place] [address] Dr. Benito To CBC W Auto Differential pane l (Bld)on 03-04-2022 Anisocytosis Ql (Bld) Present Normal [facility] Comment on above: Order Comment: Speci men Type: BLOOD SPECIMENOrdering Facility: [facility] Address: [address] [place] [address] Performed By: #### 5 7021-8 ####[facility] LABCLIA [id number] [place], [place] [address]NB[facility] LABCLIA [id number] [place] [address] [place] Basophils/100 WBC (Bld) 2.0 % Normal [facility] Comment on above: Order Comment: Speci men Type: BLOOD SPECIMENOrdering Facility: [facility] Address: [address] [place] [address] Performed By: #### 5 7021-8 ####[facility] LABCLIA [id number] [address] LABCLIA [id number] [place] [address] [place] Dacrocytes LM Ql (Bld) Few Normal [facility] Comment on above: Order Comment: Speci men Type: BLOOD SPECIMENOrdering Facility: [facility] Address: [address] [place] [address] Performed By: #### 5 7021-8 ####[facility] LABCLIA [id number] [address] LABCLIA [id number] [place] [address] [place] Differential cell count method Nom (Bld) Manual Normal [facility] Comment on above: Order Comment: Speci men Type: BLOOD SPECIMENOrdering Facility: [facility] Address: [address] [place] [address] Performed By: #### 5 7021-8 ####[facility] LABCLIA [id number] [address] LABCLIA [id number] [place] [address] [place] Eosinophils (Bld) [#/Vol] 0.02 10*3/uL Normal <0.46 [facility] Comment on above: Order Comment: Speci men Type: BLOOD SPECIMENOrdering Facility: [facility] Address: [address] [place], [place] [address] Performed By: #### 5 7021-8 ####[facility] LABCLIA [id number] [address] LABCLIA [id number] [place] [address] [place] Eosinophils/100 WBC (Bld) 1.0 % Normal [facility] Comment on above: Order Comment: Speci men Type: BLOOD SPECIMENOrdering Facility: [facility] Address: [address] [place] [address] Performed By: #### 5 7021-8 ####[facility] LABCLIA [id number] [address] LABCLIA [id number] [place] [address] [place] Erythrocyte distribution width (RBC) [Ratio] 25.2 % High 11.5-15.0 [facility] Comment on above: Order Comment: Speci men Type: BLOOD SPECIMENOrdering Facility: [facility] Address: [address] [place] [address] Performed By: #### 5 7021-8 ####[facility] LABCLIA [id number] [address] LABCLIA [id number] [place] [address] [place] Hematocrit (Bld) [Volume fraction] 24.0 % Low 39.0-51.0 [facility] Comment on above: Order Comment: Speci men Type: BLOOD SPECIMENOrdering Facility: [facility] Address: [address] [place] [address] Performed By: #### 5 7021-8 ####[facility] LABCLIA [id number] [address] LABCLIA [id number] [place] [address] [place] Hemoglobin (Bld) [Mass/Vol] 7.5 g/dL Low 13.0-17.0 [facility] Comment on above: Order Comment: Speci men Type: BLOOD SPECIMENOrdering Facility: [facility] Address: [address] [place] [address] Performed By: #### 5 7021-8 ####[facility] LABCLIA [id number] [address] [facility] LABCLIA [id number] [place] [address] [place] Lymphocytes (Bld) [#/Vol] 0.76 10*3/uL Low 1.00-4.00 [facility] Comment on above: Order Comment: Speci men Type: BLOOD SPECIMENOrdering Facility: [facility] Address: [address] [place] [address] Performed By: #### 5 7021-8 ####[facility] LABCLIA [id number] [address] LABCLIA [id number] [place] [address] [place] Lymphocytes/100 WBC (Bld) 38.0 % Normal [facility] Comment on above: Order Comment: Speci men Type: BLOOD SPECIMENOrdering Facility: [facility] Address: [address] [place] [address] Performed By: #### 5 7021-8 ####[facility] LABCLIA [id number] [address] LABCLIA [id number] [place] [address] [place] MCH (RBC) [Entitic mass] 32.3 pg Normal 26.0-34.0 [facility] Comment on above: Order Comment: Speci men Type: BLOOD SPECIMENOrdering Facility: [facility] Address: [address] [place], [place] [address] Performed By: #### 5 7021-8 ####[facility] LABCLIA [id number] [address] LABCLIA [id number] [place] [address] [place] MCHC (RBC) [Mass/Vol] 31.3 g/dL Normal 30.5-36.0 [facility] Comment on above: Order Comment: Speci men Type: BLOOD SPECIMENOrdering Facility: [facility] Address: [address] [place] [address] Performed By: #### 5 7021-8 ####[facility] LABCLIA [id number] [address] LABCLIA [id number] [place] [address] [place] MCV (RBC) [Entitic vol] 103.4 fL High 80.0-100.0 [facility] Comment on above: Order Comment: Speci men Type: BLOOD SPECIMENOrdering Facility: [facility] Address: [address] [place] [address] Performed By: #### 5 7021-8 ####[facility] LABCLIA [id number] [address] LABCLIA [id number] [place] [address] [place] Neutrophils (Bld) [#/Vol] 0.86 10*3/uL Low 1.45-7.50 [facility] Comment on above: Order Comment: Speci men Type: BLOOD SPECIMENOrdering Facility: [facility] Address: [address] [place] [address] Performed By: #### 5 7021-8 ####[facility] LABCLIA [id number] [address] LABCLIA [id number] [place] [address] [place] Neutrophils/100 WBC (Bld) 43.0 % Normal [facility] Comment on above: Order Comment: Speci men Type: BLOOD SPECIMENOrdering Facility: [facility] Address: [address] [place] [address] Performed By: #### 5 7021-8 ####[facility] LABCLIA [id number] [place] [address] LABCLIA [id number] [place] [address] [place] Nucleated RBC/100 WBC (Bld) [Ratio] 0.0 /100 WBC Normal [facility] Comment on above: Order Comment: Speci men Type: BLOOD SPECIMENOrdering Facility: [facility] Address: [address] [place] [address] Performed By: #### 5 7021-8 ####[facility] LABCLIA [id number] [address] LABCLIA [id number] [place] [place] [address] [place] Ovalocytes LM Ql (Bld) Few Normal [facility] Comment on above: Order Comment: Speci men Type: BLOOD SPECIMENOrdering Facility: [facility] Address: [address] [place] [address] Performed By: #### 5 7021-8 ####[facility] LABCLIA [id number] [address] LABCLIA [id number] [place] [address] [place] PLATELET ESTIMATE Decreased Normal [facility] Comment on above: Order Comment: Speci men Type: BLOOD SPECIMENOrdering Facility: [facility] Address: [address] [place] [address] Performed By: #### 5 7021-8 ####[facility] LABCLIA [id number] [address] LABCLIA [id number] [place] [address] [place] Platelet mean volume (Bld) [Entitic vol] 12.6 fL Normal 9.0-12.7 [facility] Comment on above: Order Comment: Speci men Type: BLOOD SPECIMENOrdering Facility: [facility] Address: [address] [place] [address] Performed By: #### 5 7021-8 ####[facility] LABCLIA [id number] [address] LABCLIA [id number] [place] [address] [place] Platelets (Bld) [#/Vol] 43 10*3/uL Low 150-400 [facility] Comment on above: Order Comment: Speci men Type: BLOOD SPECIMENOrdering Facility: [facility] Address: [address] [place], [place] [address] Result Comment: Samp le checked for clot Performed By: #### 5 7021-8 ####[facility] LABCLIA [id number] [address] LABCLIA [id number] [place] [address] [place] Polychromasia LM Ql (Bld) Slight Normal [facility] Comment on above: Order Comment: Speci men Type: BLOOD SPECIMENOrdering Facility: [facility] Address: [address] [place] [address] Performed By: #### 5 7021-8 ####[facility] LABCLIA [id number] [address] LABCLIA [id number] [place] [address] [place] RBC (Bld) [#/Vol] 2.32 10*6/uL Low 4.20-6.00 [facility] Comment on above: Order Comment: Speci men Type: BLOOD SPECIMENOrdering Facility: [facility] Address: [address] [place], [place] [address] Performed By: #### 5 7021-8 ####[facility] LABCLIA [id number] [address] LABCLIA [id number] [place] [address] [place] RBC FRAGMENTS Few Abnormal None Seen [facility] Comment on above: Order Comment: Speci men Type: BLOOD SPECIMENOrdering Facility: [facility] Address: [address] [place] [address] Performed By: #### 5 7021-8 ####[facility] LABCLIA [id number] [address] LABCLIA [id number] [place] [address] [place] RED CELL MORPH Reviewed: see result s of individual morphologies Normal [facility] Comment on above: Order Comment: Speci men Type: BLOOD SPECIMENOrdering Facility: [facility] Address: [address] [place] [address] Performed By: #### 5 7021-8 ####[facility] LABCLIA [id number] [address] LABCLIA [id number] [place] [address] [place] WAM - ABS BASO 0.04 k/uL Normal <0.11 [facility] Comment on above: Order Comment: Speci men Type: BLOOD SPECIMENOrdering Facility: [facility] Address: [address] [place], [place] [address] Performed By: #### 5 7021-8 ####[facility] LABCLIA [id number] [address] LABCLIA [id number] [place] [address] [place] WAM - ABS MONO 0.32 k/uL Normal <0.87 [facility] Comment on above: Order Comment: Speci men Type: BLOOD SPECIMENOrdering Facility: [facility] Address: [address] [place], [place] [address] Performed By: #### 5 7021-8 ####[facility] LABCLIA [id number] [place] [address] LABCLIA [id number] [place] [address] [place] WAM - MONO% 16.0 % Normal [facility] Comment on above: Order Comment: Speci men Type: BLOOD SPECIMENOrdering Facility: [facility] Address: [address] [place] [address] Performed By: #### 5 7021-8 ####[facility] LABCLIA [id number] [address] LABCLIA [id number] [address] [place] WAM ABSOLUTE NRBC <0.01 Normal <0.01 [facility] Comment on above: Order Comment: Speci men Type: BLOOD SPECIMENOrdering Facility: [facility] Address: [address] [place] [address] Performed By: #### 5 7021-8 ####[facility] LABCLIA [id number] [address] LABCLIA [id number] [place] [address] [place] WBC (Bld) [#/Vol] 2.00 10*3/uL Low 3.70-11.00 [facility] Comment on above: Order Comment: Speci men Type: BLOOD SPECIMENOrdering Facility: [facility] Address: [address] [place], [place] [address] Result Comment: Samp le checked for clot Performed By: #### 5 7021-8 ####[facility] LABCLIA [id number] [address] LABCLIA [id number] [place] [address] [address] [place] Comprehensive metabolic 2000 panelon 03-04-2022 Albumin [Mass/Vol] 3.8 g/dL Low 3.9-4.9 [facility] Comment on above: Order Comment: Speci men Type: BLOOD SPECIMENOrdering Facility: [facility] Address: [address] [place] [address] Performed By: #### 2 4323-8, 2532-0 ####[facility] LABCLIA [id number] [place] [address] ALP [Catalytic activity/Vol] 68 U/L Normal 38-113 [facility] Comment on above: Order Comment: Speci men Type: BLOOD SPECIMENOrdering Facility: [facility] Address: [address] [place] [address] Performed By: #### 2 4323-8, 2532-0 ####[facility] LABIA [id number] [place] [address] ALT [Catalytic activity/Vol] 21 U/L Normal 10-54 [facility] Comment on above: Order Comment: Speci men Type: BLOOD SPECIMENOrdering Facility: [facility] Address: [address] [place] [address] Performed By: #### 2 4323-8, 2532-0 ####[facility] LABIA [id number] [place] [address] Anion gap [Moles/Vol] 10 mmol/L Normal 9-18 [facility] Comment on above: Order Comment: Speci men Type: BLOOD SPECIMENOrdering Facility: [facility] Address: [address] [place] [address] Performed By: #### 2 4323-8, 2532-0 ####[facility] LABIA [id number] [place] [address] AST [Catalytic activity/Vol] 11 U/L Low 14-40 [facility] Comment on above: Order Comment: Speci men Type: BLOOD SPECIMENOrdering Facility: [facility] Address: [address] [place], [place] [address] Performed By: #### 2 4323-8, 2531-0 ####[facility] LABCLIA [id number] [place] [address] Bilirubin [Mass/Vol] 0.8 mg/dL Normal 0.2-1.3 [facility] Comment on above: Order Comment: Speci men Type: BLOOD SPECIMENOrdering Facility: [facility] Address: [address] [place] [address] Performed By: #### 2 432-8, 2531-0 ####[facility] LABIA [id number] [place] [address] Calcium [Mass/Vol] 8.8 mg/dL Normal 8.5-10.2 [facility] Comment on above: Order Comment: Speci men Type: BLOOD SPECIMENOrdering Facility: [facility] Address: [address] [place] [address] Performed By: #### 2 4328, 2531-0 ####[facility] LABIA [id number] [place] [address] Chloride [Moles/Vol] 106 mmol/L High 97-105 [facility] Comment on above: Order Comment: Speci men Type: BLOOD SPECIMENOrdering Facility: [facility] Address: [address] [place], [place] [address] Performed By: #### 2 4328, 2531-0 ####[facility] LABCLIA [id number] [place] [address] CO2 [Moles/Vol] 27 mmol/L Normal 22-30 [facility] Comment on above: Order Comment: Speci men Type: BLOOD SPECIMENOrdering Facility: [facility] Address: [address] [place], [place] [address] Performed By: #### 2 4323-8, 2531-0 ####[facility] LABCLIA [id number] [place] [address] Creatinine [Mass/Vol] 1.73 mg/dL High 0.73-1.22 [facility] Comment on above: Order Comment: Davi avendaño Type: BLOOD SPECIMENOrdering Facility: [facility] Address: [address] [place], [place] [address] Performed By: #### 2 4323-8, 2531-0 ####[facility] LABCLIA [id number] [place] [address] ESTIMATED GLOMERULAR FILTRATION RATE 39 mL/min/1.73m??? Low >=60 [facility] Comment on above: Order Comment: Davi avendaño Type: BLOOD SPECIMENOrdering Facility: [facility] Address: [address] [place] [address] Result Comment: Faye mated Glomerular Filtration Rate [...] GFR. Performed By: #### 2 4323-8, 2531-0 ####[facility] LABCLIA [id number] [place] [address] Glucose [Mass/Vol] 154 mg/dL High 74-99 [facility] Comment on above: Order Comment: Davi avendaño Type: BLOOD SPECIMENOrdering Facility: [facility] Address: [address] [place] [address] Result Comment: The [place] [employer] (ADA) provides guidance for cutoff [...] Standards of Medical Care in Diabetes 2016, [place] [employer]. Diabetes Care. 2016.39(Suppl 1). Performed By: #### 2 4323-8, 0 ####[facility] LABCLIA [id number] [place] [address] Potassium [Moles/Vol] 4.2 mmol/L Normal 3.7-5.1 [facility] Comment on above: Order Comment: Speci men Type: BLOOD SPECIMENOrdering Facility: [facility] Address: [address] Performed By: #### 2 4328, 0 ####[facility] LABCLIA [id number] [place] [address] Protein [Mass/Vol] 5.8 g/dL Low 6.3-8.0 [facility] Comment on above: Order Comment: Speci men Type: BLOOD SPECIMENOrdering Facility: [facility] Address: [address] Performed By: #### 2 4328, ####[facility] LABCLIA [id number] [place] [address] Sodium [Moles/Vol] 143 mmol/L Normal 136-144 [facility] Comment on above: Order Comment: Speci men Type: BLOOD SPECIMENOrdering Facility: [facility] Address: [address] [place] [address] Performed By: #### 2 4323-8, 0 ####[facility] LABIA [id number] [place] [address] Urea nitrogen [Mass/Vol] 23 mg/dL Normal 9-24 [facility] Comment on above: Order Comment: Speci men Type: BLOOD SPECIMENOrdering Facility: [facility] Address: [address] [place] [address] Performed By: #### 2 4323-8, 2532-0 ####[facility] LABCLIA [id number] [place] [address] LDH SerPl-cCncon 03-04-2022 LDH [Catalytic activity/Vol] 216 U/L Normal 135-225 [facility] Comment on above: Order Comment: Speci men Type: BLOOD SPECIMENOrdering Facility: [facility] Address: [address] [place] [address] Result Comment: Hemo lysis present. The origin [...] indicated. Performed By: #### 2 4323-8, 2532-0 ####[facility] LABIA [id number] [place] [address] CBC W Auto Differential pane l (Bld)on 02-28-2022 Basophils (Bld) [#/Vol] 10*3/uL Normal <0.11 [facility] Comment on above: Order Comment: Speci men Type: BLOOD SPECIMENOrdering Facility: [facility] Address: [address] [place] [address] Performed By: #### 5 7021-8 ####[facility] LABCLIA [id number] [place] [address] Basophils/100 WBC (Bld) 0.4 % Normal [facility] Comment on above: Order Comment: Speci men Type: BLOOD SPECIMENOrdering Facility: [facility] Address: [address] [place] [address] Performed By: #### 5 7021-8 ####[facility] LABIA [id number] [place] [address] Differential cell count method Nom (Bld) Auto Normal [facility] Comment on above: Order Comment: Speci men Type: BLOOD SPECIMENOrdering Facility: [facility] Address: [address] [place] [address] Performed By: #### 5 7021-8 ####[facility] LABCLIA [id number] [place] [address] Eosinophils (Bld) [#/Vol] 10*3/uL Normal <0.46 [facility] Comment on above: Order Comment: Speci men Type: BLOOD SPECIMENOrdering Facility: [facility] Address: [address] [place] [address] Performed By: #### 5 7021-8 ####[facility] LABCLIA [id number] [place] [address] Eosinophils/100 WBC (Bld) 0.0 % Normal [facility] Comment on above: Order Comment: Speci men Type: BLOOD SPECIMENOrdering Facility: [facility] Address: [address] [place] [address] Performed By: #### 5 7021-8 ####[facility] LABCLIA [id number] [place] [address] Erythrocyte distribution width (RBC) [Ratio] 24.4 % High 11.5-15.0 [facility] Comment on above: Order Comment: Speci men Type: BLOOD SPECIMENOrdering Facility: [facility] Address: [address] [place] [address] Performed By: #### 5 7021-8 ####[facility] LABCLIA [id number] [place] [address] Hematocrit (Bld) [Volume fraction] 20.6 % Low 39.0-51.0 [facility] Comment on above: Order Comment: Speci men Type: BLOOD SPECIMENOrdering Facility: [facility] Address: [address] [place] [address] Performed By: #### 5 7021-8 ####[facility] LABCLIA [id number] [place] [address] Hemoglobin (Bld) [Mass/Vol] 6.6 g/dL Low 13.0-17.0 [facility] Comment on above: Order Comment: Speci men Type: BLOOD SPECIMENOrdering Facility: [facility] Address: [address] [place] [address] Performed By: #### 5 7021-8 ####[facility] LABCLIA [id number] [place] [address] IMMATURE GRAN % 1.3 % Normal [facility] Comment on above: Order Comment: Speci men Type: BLOOD SPECIMENOrdering Facility: [facility] Address: [address] [place] [address] Performed By: #### 5 7021-8 ####[facility] LABCLIA [id number] [place] [address] IMMATURE GRAN ABS 0.03 k/uL Normal <0.10 [facility] Comment on above: Order Comment: Speci men Type: BLOOD SPECIMENOrdering Facility: [facility] Address: [address] [place] [address] Performed By: #### 5 7021-8 ####[facility] LABCLIA [id number] [place] [address] Lymphocytes (Bld) [#/Vol] 0.73 10*3/uL Low 1.00-4.00 [facility] Comment on above: Order Comment: Speci men Type: BLOOD SPECIMENOrdering Facility: [facility] Address: [address] [place] [address] Performed By: #### 5 7021-8 ####[facility] LABCLIA [id number] [place] [address] Lymphocytes/100 WBC (Bld) 32.4 % Normal [facility] Comment on above: Order Comment: Speci men Type: BLOOD SPECIMENOrdering Facility: [facility] Address: [address] [place], [place] [address] Performed By: #### 5 7021-8 ####[facility] LABCLIA [id number] [place] [address] MCH (RBC) [Entitic mass] 34.9 pg High 26.0-34.0 [facility] Comment on above: Order Comment: Speci men Type: BLOOD SPECIMENOrdering Facility: [facility] Address: [address] [place] [address] Performed By: #### 5 7021-8 ####[facility] LABCLIA [id number] [place] [address] MCHC (RBC) [Mass/Vol] 32.0 g/dL Normal 30.5-36.0 [facility] Comment on above: Order Comment: Speci men Type: BLOOD SPECIMENOrdering Facility: [facility] Address: [address] [place] [address] Performed By: #### 5 7021-8 ####[facility] LABIA [id number] [place] [address] MCV (RBC) [Entitic vol] 109.0 fL High 80.0-100.0 [facility] Comment on above: Order Comment: Speci men Type: BLOOD SPECIMENOrdering Facility: [facility] Address: [address] [place] [address] Performed By: #### 5 7021-8 ####[facility] LABIA [id number] [place] [address] Monocytes (Bld) [#/Vol] 0.35 10*3/uL Normal <0.87 [facility] Comment on above: Order Comment: Speci men Type: BLOOD SPECIMENOrdering Facility: [facility] Address: [address] [place] [address] Performed By: #### 5 7021-8 ####[facility] LABIA [id number] [place] [address] Monocytes/100 WBC (Bld) 15.6 % Normal [facility] Comment on above: Order Comment: Speci men Type: BLOOD SPECIMENOrdering Facility: [facility] Address: [address] [place] [address] Performed By: #### 5 7021-8 ####[facility] LABCLIA [id number] [place] [address] Neutrophils (Bld) [#/Vol] 1.13 10*3/uL Low 1.45-7.50 [facility] Comment on above: Order Comment: Speci men Type: BLOOD SPECIMENOrdering Facility: [facility] Address: [address] [place] [address] Performed By: #### 5 7021-8 ####[facility] LABCLIA [id number] [place] [address] Neutrophils/100 WBC (Bld) 50.3 % Normal [facility] Comment on above: Order Comment: Speci men Type: BLOOD SPECIMENOrdering Facility: [facility] Address: [address] [place] [address] Performed By: #### 5 7021-8 ####[facility] LABCLIA [id number] [place] [address] Nucleated RBC (Bld) [#/Vol] 10*3/uL Normal <0.01 [facility] Comment on above: Order Comment: Speci men Type: BLOOD SPECIMENOrdering Facility: [facility] Address: [address] [place] [address] Performed By: #### 5 7021-8 ####[facility] LABCLIA [id number] [place] [address] Nucleated RBC/100 WBC (Bld) [Ratio] 0.0 /100 WBC Normal [facility] Comment on above: Order Comment: Speci men Type: BLOOD SPECIMENOrdering Facility: [facility] Address: [address] [place], [place] [address] Performed By: #### 5 7021-8 ####[facility] LABCLIA [id number] [place] [address] Platelet mean volume (Bld) [Entitic vol] 14.1 fL High 9.0-12.7 [facility] Comment on above: Order Comment: Speci men Type: BLOOD SPECIMENOrdering Facility: [facility] Address: [address] [place] [address] Performed By: #### 5 7021-8 ####[facility] LABCLIA [id number] [place] [address] Platelets (Bld) [#/Vol] 44 10*3/uL Low 150-400 [facility] Comment on above: Order Comment: Speci men Type: BLOOD SPECIMENOrdering Facility: [facility] Address: [address] [place] [address] Result Comment: [facility] le checked for clot Performed By: #### 5 7021-8 ####[facility] LABCLIA [id number] [place] [address] RBC (Bld) [#/Vol] 1.89 10*6/uL Low 4.20-6.00 [facility] Comment on above: Order Comment: Speci men Type: BLOOD SPECIMENOrdering Facility: [facility] Address: [address] [place] [address] Performed By: #### 5 7021-8 ####[facility] LABCLIA [id number] [place] [address] WBC (Bld) [#/Vol] 2.25 10*3/uL Low 3.70-11.00 [facility] Comment on above: Order Comment: Speci men Type: BLOOD SPECIMENOrdering Facility: [facility] Address: [address] [place] [address] Performed By: #### 5 7021-8 ####[facility] LABCLIA [id number] [place] [address] CNPNon 02-28-2022 CNPN Normal [facility] Comprehensive metabolic 2000 panelon 02-28-2022 Albumin [Mass/Vol] 3.9 g/dL Normal 3.9-4.9 [facility] Comment on above: Order Comment: Speci men Type: BLOOD SPECIMENOrdering Facility: [facility] Address: [address] [place] [address] Performed By: #### 2 532-0, 60695-7 ####[facility] LABCLIA [id number] [place] [address] ALP [Catalytic activity/Vol] 67 U/L Normal 38-113 [facility] Comment on above: Order Comment: Speci men Type: BLOOD SPECIMENOrdering Facility: [facility] Address: [address] [place] [address] Performed By: #### 2 532-0, 84125-4 ####[facility] LABCLIA [id number] [place] [address] ALT [Catalytic activity/Vol] 28 U/L Normal 10-54 [facility] Comment on above: Order Comment: Speci men Type: BLOOD SPECIMENOrdering Facility: [facility] Address: [address] [place] [address] Performed By: #### 2 532-0, 90051-7 ####[facility] LABCLIA [id number] [place] [address] Anion gap [Moles/Vol] 10 mmol/L Normal 9-18 [facility] Comment on above: Order Comment: Speci men Type: BLOOD SPECIMENOrdering Facility: [facility] Address: [address] [place] [address] Performed By: #### 2 532-0, 37068-1 ####[facility] LABCLIA [id number] [place] [address] AST [Catalytic activity/Vol] 11 U/L Low 14-40 [facility] Comment on above: Order Comment: Speci men Type: BLOOD SPECIMENOrdering Facility: [facility] Address: [address] [place], [place] [address] Performed By: #### 2 532-0, 89533-4 ####[facility] LABCLIA [id number] [place] [address] Bilirubin [Mass/Vol] 0.8 mg/dL Normal 0.2-1.3 [facility] Comment on above: Order Comment: Speci men Type: BLOOD SPECIMENOrdering Facility: [facility] Address: [address] [place] [address] Performed By: #### 2 532-0, ####[facility] LABCLIA [id number] [place] [address] Calcium [Mass/Vol] 8.6 mg/dL Normal 8.5-10.2 [facility] Comment on above: Order Comment: Speci men Type: BLOOD SPECIMENOrdering Facility: [facility] Address: [address] [place] [address] Performed By: #### 2 532-0, ####[facility] LABIA [id number] [place] [address] Chloride [Moles/Vol] 106 mmol/L High 97-105 [facility] Comment on above: Order Comment: Speci men Type: BLOOD SPECIMENOrdering Facility: [facility] Address: [address] [place], [place] [address] Performed By: #### 2 532-0, ####[facility] LABCLIA [id number] [place] [address] CO2 [Moles/Vol] 27 mmol/L Normal 22-30 [facility] Comment on above: Order Comment: Speci men Type: BLOOD SPECIMENOrdering Facility: [facility] Address: [address] [place], [place] [address] Performed By: #### 2 532-0, [address]3370-9 ####[facility] LABCLIA [id number] [place] [address] Creatinine [Mass/Vol] 1.94 mg/dL High 0.73-1.22 [facility] Comment on above: Order Comment: Davi avendaño Type: BLOOD SPECIMENOrdering Facility: [facility] Address: [address] [place] [address] Performed By: #### 2 532-0, 25606-6 ####[facility] LABCLIA [id number] [place] [address] ESTIMATED GLOMERULAR FILTRATION RATE 34 mL/min/1.73m??? Low >=60 [facility] Comment on above: Order Comment: Cristinai men Type: BLOOD SPECIMENOrdering Facility: [facility] Address: [address] [place] [address] Result Comment: Faye mated Glomerular Filtration Rate [...] actual GFR. Performed By: #### 2 532-0, 28906-8 ####[facility] LABCLIA [id number] [place] [address] Glucose [Mass/Vol] 154 mg/dL High 74-99 [facility] Comment on above: Order Comment: Speci men Type: BLOOD SPECIMENOrdering Facility: [facility] Address: [address] [place] [address] Result Comment: The [place] Diabetes Association (ADA) provides guidance for cutoff [...] Standards of Medical Care in Diabetes 2016, [place] [employer]. Diabetes Care. 2016.39(Suppl 1). Performed By: #### 2 532-0, 65242-7 ####[facility] LABCLIA [id number] [place] [address] Potassium [Moles/Vol] 4.1 mmol/L Normal 3.7-5.1 [facility] Comment on above: Order Comment: Speci men Type: BLOOD SPECIMENOrdering Facility: [facility] Address: [address] [place] [address] Performed By: #### 2 532-0, 32572-4 ####[facility] LABIA [id number] [place] [address] Protein [Mass/Vol] 5.8 g/dL Low 6.3-8.0 [facility] Comment on above: Order Comment: Speci men Type: BLOOD SPECIMENOrdering Facility: [facility] Address: [address] [place] [address] Performed By: #### 2 532-0, ####[facility] LABIA [id number] [place] [address] Sodium [Moles/Vol] 143 mmol/L Normal 136-144 [facility] Comment on above: Order Comment: Speci men Type: BLOOD SPECIMENOrdering Facility: [facility] Address: [address] [address] Performed By: #### 2 532-0, ####[facility] LABIA [id number] [place] [address] Urea nitrogen [Mass/Vol] 26 mg/dL High 9-24 [facility] Comment on above: Order Comment: Speci men Type: BLOOD SPECIMENOrdering Facility: [facility] Address: [address] [place] [address] Performed By: #### 2 532-0, 84532-1 ####[facility] LABCLIA [id number] [place] [address] HEMOGLOBIN AND HEMATOCRITon 02-28-2022 Hematocrit (Bld) [Volume fraction] 20.3 % Critically low 42.0-54.0 [facility] Comment on above: Performed By: #### H H #### [facility] [address] [place] [address] Dr. Benito To Hemoglobin (Bld) [Mass/Vol] 6.7 g/dL Critically low 14.0-18.0 [facility] Comment on above: Performed By: #### H H #### [facility] [address] [place] [address] Dr. Benito To LDH SerPl-cCncon 02-28-2022 LDH [Catalytic activity/Vol] 207 U/L Normal 135-225 [facility] Comment on above: Order Comment: Speci men Type: BLOOD SPECIMENOrdering Facility: [facility] Address: [address] [place] [address] Performed By: #### 2 532-0, 59128-7 ####[facility] LABCLIA [id number] [place] [address] TYPE AND SCREENon 02-28-2022 TYPE AND SCREEN Negative Normal [facility] Comment on above: Performed By: #### P RBC, TNS #### [facility] [address] [place] [address] Dr. Benito To CBC W Auto Differential pane l (Bld)on 02-25-2022 Basophils (Bld) [#/Vol] 10*3/uL Normal <0.11 [facility] Comment on above: Order Comment: Speci men Type: BLOOD SPECIMENOrdering Facility: [facility] Address: [address] [place] [address] Performed By: #### 5 7021-8 ####[facility] LABCLIA [id number] [place] [address] Basophils/100 WBC (Bld) 0.3 % Normal [facility] Comment on above: Order Comment: Speci men Type: BLOOD SPECIMENOrdering Facility: [facility] Address: [address] [place] [address] Performed By: #### 5 7021-8 ####[facility] LABCLIA [id number] [place] [address] Differential cell count method Nom (Bld) Auto Normal [facility] Comment on above: Order Comment: Speci men Type: BLOOD SPECIMENOrdering Facility: [facility] Address: [address] [place] [address] Performed By: #### 5 7021-8 ####[facility] LABCLIA [id number] [place] [address] Eosinophils (Bld) [#/Vol] 10*3/uL Normal <0.46 [facility] Comment on above: Order Comment: Speci men Type: BLOOD SPECIMENOrdering Facility: [facility] Address: [address] [place] [address] Performed By: #### 5 7021-8 ####[facility] LABCLIA [id number] [place] [address] Eosinophils/100 WBC (Bld) 0.3 % Normal [facility] Comment on above: Order Comment: Speci men Type: BLOOD SPECIMENOrdering Facility: [facility] Address: [address] [place] [address] Performed By: #### 5 7021-8 ####[facility] LABCLIA [id number] [place] [address] Erythrocyte distribution width (RBC) [Ratio] 24.2 % High 11.5-15.0 [facility] Comment on above: Order Comment: Speci men Type: BLOOD SPECIMENOrdering Facility: [facility] Address: [address] [place] [address] Performed By: #### 5 7021-8 ####[facility] LABCLIA [id number] [place] [address] Hematocrit (Bld) [Volume fraction] 22.8 % Low 39.0-51.0 [facility] Comment on above: Order Comment: Speci men Type: BLOOD SPECIMENOrdering Facility: [facility] Address: [address] [place] [address] Performed By: #### 5 7021-8 ####[facility] LABIA [id number] [place] [address] Hemoglobin (Bld) [Mass/Vol] 7.1 g/dL Low 13.0-17.0 [facility] Comment on above: Order Comment: Speci men Type: BLOOD SPECIMENOrdering Facility: [facility] Address: [address] [place] [address] Performed By: #### 5 7021-8 ####[facility] LABIA [id number] [place] [address] IMMATURE GRAN % 1.6 % Normal [facility] Comment on above: Order Comment: Speci men Type: BLOOD SPECIMENOrdering Facility: [facility] Address: [address] [place] [address] Performed By: #### 5 7021-8 ####[facility] LABIA [id number] [place] [address] IMMATURE GRAN ABS 0.05 k/uL Normal <0.10 [facility] Comment on above: Order Comment: Speci men Type: BLOOD SPECIMENOrdering Facility: [facility] Address: [address] [place] [address] Performed By: #### 5 7021-8 ####[facility] LABIA [id number] [place] [address] Lymphocytes (Bld) [#/Vol] 1.00 10*3/uL Normal 1.00-4.00 [facility] Comment on above: Order Comment: Speci men Type: BLOOD SPECIMENOrdering Facility: [facility] Address: [address] [place] [address] Performed By: #### 5 7021-8 ####[facility] LABCLIA [id number] [place] [address] Lymphocytes/100 WBC (Bld) 32.8 % Normal [facility] Comment on above: Order Comment: Speci men Type: BLOOD SPECIMENOrdering Facility: [facility] Address: [address] [place] [address] Performed By: #### 5 7021-8 ####[facility] LABCLIA [id number] [place] [address] MCH (RBC) [Entitic mass] 33.5 pg Normal 26.0-34.0 [facility] Comment on above: Order Comment: Speci men Type: BLOOD SPECIMENOrdering Facility: [facility] Address: [address] [place] [address] Performed By: #### 5 7021-8 ####[facility] LABIA [id number] [place] [address] MCHC (RBC) [Mass/Vol] 31.1 g/dL Normal 30.5-36.0 [facility] Comment on above: Order Comment: Speci men Type: BLOOD SPECIMENOrdering Facility: [facility] Address: [address] [place], [place] [address] Performed By: #### 5 7021-8 ####[facility] LABIA [id number] [place] [address] MCV (RBC) [Entitic vol] 107.5 fL High 80.0-100.0 [facility] Comment on above: Order Comment: Speci men Type: BLOOD SPECIMENOrdering Facility: [facility] Address: [address] [place] [address] Performed By: #### 5 7021-8 ####[facility] LABCLIA [id number] [place] [address] Monocytes (Bld) [#/Vol] 0.47 10*3/uL Normal <0.87 [facility] Comment on above: Order Comment: Speci men Type: BLOOD SPECIMENOrdering Facility: [facility] Address: [address] [place] [address] Performed By: #### 5 7021-8 ####[facility] LABCLIA [id number] [place] [address] Monocytes/100 WBC (Bld) 15.4 % Normal [facility] Comment on above: Order Comment: Speci men Type: BLOOD SPECIMENOrdering Facility: [facility] Address: [address] [place] [address] Performed By: #### 5 7021-8 ####[facility] LABCLIA [id number] [place] [address] Neutrophils (Bld) [#/Vol] 1.51 10*3/uL Normal 1.45-7.50 [facility] Comment on above: Order Comment: Speci men Type: BLOOD SPECIMENOrdering Facility: [facility] Address: [address] [place] [address] Performed By: #### 5 7021-8 ####[facility] LABCLIA [id number] [place] [address] Neutrophils/100 WBC (Bld) 49.6 % Normal [facility] Comment on above: Order Comment: Speci men Type: BLOOD SPECIMENOrdering Facility: [facility] Address: [address] [place] [address] Performed By: #### 5 7021-8 ####[facility] LABCLIA [id number] [place] [address] Nucleated RBC (Bld) [#/Vol] 10*3/uL Normal <0.01 [facility] Comment on above: Order Comment: Speci men Type: BLOOD SPECIMENOrdering Facility: [facility] Address: [address] [place] [address] Performed By: #### 5 7021-8 ####[facility] LABCLIA [id number] [place] [address] Nucleated RBC/100 WBC (Bld) [Ratio] 0.0 /100 WBC Normal [facility] Comment on above: Order Comment: Speci men Type: BLOOD SPECIMENOrdering Facility: [facility] Address: [address] [place] [address] Performed By: #### 5 7021-8 ####[facility] LABIA [id number] [place] [address] Platelet mean volume (Bld) [Entitic vol] 14.2 fL High 9.0-12.7 [facility] Comment on above: Order Comment: Speci men Type: BLOOD SPECIMENOrdering Facility: [facility] Address: [address] [place] [address] Performed By: #### 5 7021-8 ####[facility] LABIA [id number] [place] [address] Platelets (Bld) [#/Vol] 64 10*3/uL Low 150-400 [facility] Comment on above: Order Comment: Speci men Type: BLOOD SPECIMENOrdering Facility: [facility] Address: [address] [place] [address] Result Comment: Samp le checked for clot Performed By: #### 5 7021-8 ####[facility] LABCLIA [id number] [place] [address] RBC (Bld) [#/Vol] 2.12 10*6/uL Low 4.20-6.00 [facility] Comment on above: Order Comment: Speci men Type: BLOOD SPECIMENOrdering Facility: [facility] Address: [address] [place] [address] Performed By: #### 5 7021-8 ####[facility] LABCLIA [id number] [place] [address] WBC (Bld) [#/Vol] 3.05 10*3/uL Low 3.70-11.00 [facility] Comment on above: Order Comment: Speci men Type: BLOOD SPECIMENOrdering Facility: [facility] Address: [address] [place] [address] Performed By: #### 5 7021-8 ####[facility] LABCLIA [id number] [place] [address] Comprehensive metabolic 2000 panelon 02-25-2022 Albumin [Mass/Vol] 3.8 g/dL Low 3.9-4.9 [facility] Comment on above: Order Comment: Speci men Type: BLOOD SPECIMENOrdering Facility: [facility] Address: [address] [place] [address] Performed By: #### 2 532-0, 98987-5 ####[facility] LABCLIA [id number] [place] [address] ALP [Catalytic activity/Vol] 69 U/L Normal 38-113 [facility] Comment on above: Order Comment: Speci men Type: BLOOD SPECIMENOrdering Facility: [facility] Address: [address] [place] [address] Performed By: #### 2 532-0, 64778-9 ####[facility] LABCLIA [id number] [place] [address] ALT [Catalytic activity/Vol] 33 U/L Normal 10-54 [facility] Comment on above: Order Comment: Speci men Type: BLOOD SPECIMENOrdering Facility: [facility] Address: [address] [place] [address] Performed By: #### 2 532-0, 94353-3 ####[facility] LABCLIA [id number] [place] [address] Anion gap [Moles/Vol] 9 mmol/L Normal 9-18 [facility] Comment on above: Order Comment: Speci men Type: BLOOD SPECIMENOrdering Facility: [facility] Address: [address] [place], [place] [address] Performed By: #### 2 532-0, 25349-5 ####[facility] LABCLIA [id number] [place] [address] AST [Catalytic activity/Vol] 14 U/L Normal 14-40 [facility] Comment on above: Order Comment: Speci men Type: BLOOD SPECIMENOrdering Facility: [facility] Address: [address] [place], [place] [address] Performed By: #### 2 532-0, 35474-7 ####[facility] LABIA [id number] [place] [address] Bilirubin [Mass/Vol] 0.6 mg/dL Normal 0.2-1.3 [facility] Comment on above: Order Comment: Speci men Type: BLOOD SPECIMENOrdering Facility: [facility] Address: [address] [place], [place] [address] Performed By: #### 2 532-0, 02638-3 ####[facility] LABIA [id number] [place] [address] Calcium [Mass/Vol] 8.8 mg/dL Normal 8.5-10.2 [facility] Comment on above: Order Comment: Speci men Type: BLOOD SPECIMENOrdering Facility: [facility] Address: [address] [place], [place] [address] Performed By: #### 2 532-0, 99027-4 ####[facility] LABIA [id number] [place] [address] Chloride [Moles/Vol] 105 mmol/L Normal 97-105 [facility] Comment on above: Order Comment: Speci men Type: BLOOD SPECIMENOrdering Facility: [facility] Address: [address] [place], [place] [address] Performed By: #### 2 532-0, 44824-1 ####[facility] LABCLIA [id number] [place] [address] CO2 [Moles/Vol] 29 mmol/L Normal 22-30 [facility] Comment on above: Order Comment: Speci men Type: BLOOD SPECIMENOrdering Facility: [facility] Address: [address] [place] [address] Performed By: #### 2 532-0, ####[facility] LABCLIA [id number] [place] [address] Creatinine [Mass/Vol] 1.90 mg/dL High 0.73-1.22 [facility] Comment on above: Order Comment: Speci men Type: BLOOD SPECIMENOrdering Facility: [facility] Address: [address] [place] [address] Performed By: #### 2 532-0, ####[facility] LABCLIA [id number] [place] [address] ESTIMATED GLOMERULAR FILTRATION RATE 35 mL/min/1.73m??? Low >=60 [facility] Comment on above: Order Comment: Speci men Type: BLOOD SPECIMENOrdering Facility: [facility] Address: [address] [place] [address] Result Comment: Faye mated Glomerular Filtration Rate [...] actual GFR. Performed By: #### 2 532-0, 71491-3 ####[facility] LABCLIA [id number] [place] [address] Glucose [Mass/Vol] 145 mg/dL High 74-99 [facility] Comment on above: Order Comment: Speci men Type: BLOOD SPECIMENOrdering Facility: [facility] Address: [address] [place], [place] [address] Result Comment: The [place] Diabetes Association (ADA) provides guidance for cutoff [...] Standards of Medical Care in Diabetes 2016, [place] [employer]. Diabetes Care. 2016.39(Suppl 1). Performed By: #### 2 532-0, 28475-4 ####[facility] LABCLIA [id number] [place] [address] Potassium [Moles/Vol] 4.2 mmol/L Normal 3.7-5.1 [facility] Comment on above: Order Comment: Speci men Type: BLOOD SPECIMENOrdering Facility: [facility] Address: [address] [place], [place] [address] Performed By: #### 2 532-0, 31081-6 ####[facility] LABCLIA [id number] [place] [address] Protein [Mass/Vol] 6.1 g/dL Low 6.3-8.0 [facility] Comment on above: Order Comment: Speci men Type: BLOOD SPECIMENOrdering Facility: [facility] Address: [address] [place], [place] [address] Performed By: #### 2 532-0, 15387-4 ####[facility] LABCLIA [id number] [place] [address] Sodium [Moles/Vol] 143 mmol/L Normal 136-144 [facility] Comment on above: Order Comment: Speci men Type: BLOOD SPECIMENOrdering Facility: [facility] Address: [address] [place] [address] Performed By: #### 2 532-0, 16748-7 ####[facility] LABCLIA [id number] [place] [address] Urea nitrogen [Mass/Vol] 29 mg/dL High 9-24 [facility] Comment on above: Order Comment: Speci men Type: BLOOD SPECIMENOrdering Facility: [facility] Address: [address] [place] [address] Performed By: #### 2 532-0, 25868-2 ####[facility] LABIA [id number] [place] [address] LDH SerPl-cCncon 02-25-2022 LDH [Catalytic activity/Vol] 227 U/L High 135-225 [facility] Comment on above: Order Comment: Speci men Type: BLOOD SPECIMENOrdering Facility: [facility] Address: [address] [place] [address] Performed By: #### 2 532-0, 18628-2 ####[facility] LABIA [id number] [place] [address] CBC W Auto Differential pane l (Bld)on 02-18-2022 Anisocytosis Ql (Bld) Present Normal [facility] Comment on above: Order Comment: Speci men Type: BLOOD SPECIMENOrdering Facility: [facility] Address: [address] [place] [address] Performed By: #### 5 7021-8 ####[facility] LABCLIA [id number] [address] LABCLIA [id number] [place] [address] Basophils/100 WBC (Bld) 1.0 % Normal [facility] Comment on above: Order Comment: Speci men Type: BLOOD SPECIMENOrdering Facility: [facility] Address: [address] [place], [place] [address] Performed By: #### 5 7021-8 ####[facility] LABCLIA [id number] [address] LABCLIA [id number] [place] [address] Eosinophils (Bld) [#/Vol] 0.00 10*3/uL Normal <0.46 [facility] Comment on above: Order Comment: Speci men Type: BLOOD SPECIMENOrdering Facility: [facility] Address: [address] [place], [place] [address] Performed By: #### 5 7021-8 ####[facility] LABCLIA [id number] [address] LABCLIA [id number] [place] [address] Eosinophils/100 WBC (Bld) 0.0 % Normal [facility] Comment on above: Order Comment: Speci men Type: BLOOD SPECIMENOrdering Facility: [facility] Address: [address] [place], [place] [address] Performed By: #### 5 7021-8 ####[facility] LABCLIA [id number] [address] LABCLIA [id number] [place] [address] Erythrocyte distribution width (RBC) [Ratio] 23.9 % High 11.5-15.0 [facility] Comment on above: Order Comment: Speci men Type: BLOOD SPECIMENOrdering Facility: [facility] Address: [address] [place] [address] Performed By: #### 5 7021-8 ####[facility] LABCLIA [id number] [address] LABCLIA [id number] [place] [address] Giant platelets LM Ql (Bld) Occasional Normal [facility] Comment on above: Order Comment: Speci men Type: BLOOD SPECIMENOrdering Facility: [facility] Address: [address] [place] [address] Performed By: #### 5 7021-8 ####[facility] LABCLIA [id number] [address] LABCLIA [id number] [place] [address] Hematocrit (Bld) [Volume fraction] 25.8 % Low 39.0-51.0 [facility] Comment on above: Order Comment: Speci men Type: BLOOD SPECIMENOrdering Facility: [facility] Address: [address] [place] [address] Performed By: #### 5 7021-8 ####[facility] LABCLIA [id number] [address] LABCLIA [id number] [place] [address] Hemoglobin (Bld) [Mass/Vol] 8.4 g/dL Low 13.0-17.0 [facility] Comment on above: Order Comment: Speci men Type: BLOOD SPECIMENOrdering Facility: [facility] Address: [address] [place] [address] Performed By: #### 5 7021-8 ####[facility] LABCLIA [id number] [address] LABCLIA [id number] [place] [address] Lymphocytes (Bld) [#/Vol] 0.89 10*3/uL Low 1.00-4.00 [facility] Comment on above: Order Comment: Speci men Type: BLOOD SPECIMENOrdering Facility: [facility] Address: [address] [place] [address] Performed By: #### 5 7021-8 ####[facility] LABCLIA [id number] [address] LABCLIA [id number] [place] [address] Lymphocytes/100 WBC (Bld) 23.0 % Normal [facility] Comment on above: Order Comment: Speci men Type: BLOOD SPECIMENOrdering Facility: [facility] Address: [address] [place], [place] [address] Performed By: #### 5 7021-8 ####[facility] LABCLIA [id number] [address] LABCLIA [id number] [place] [address] MCH (RBC) [Entitic mass] 34.3 pg High 26.0-34.0 [facility] Comment on above: Order Comment: Speci men Type: BLOOD SPECIMENOrdering Facility: [facility] Address: [address] [place], [place] [address] Performed By: #### 5 7021-8 ####[facility] LABCLIA [id number] [address] LABCLIA [id number] [place] [address] MCHC (RBC) [Mass/Vol] 32.6 g/dL Normal 30.5-36.0 [facility] Comment on above: Order Comment: Speci men Type: BLOOD SPECIMENOrdering Facility: [facility] Address: [address] [place] [id number] Performed By: #### 5 7021-8 ####[facility] LABCLIA [id number] [address] LABCLIA [id number] [place] [address] MCV (RBC) [Entitic vol] 105.3 fL High 80.0-100.0 [facility] Comment on above: Order Comment: Speci men Type: BLOOD SPECIMENOrdering Facility: [facility] Address: [address] [place] [address] Performed By: #### 5 7021-8 ####[facility] LABCLIA [id number] [address] LABCLIA [id number] [place] [address] Metamyelocytes/100 WBC (Bld) 2.0 % Normal [facility] Comment on above: Order Comment: Speci men Type: BLOOD SPECIMENOrdering Facility: [facility] Address: [address] [place] [address] Performed By: #### 5 7021-8 ####[facility] LABCLIA [id number] [address] LABCLIA [id number] [place] [address] MYELO% 3.0 % Normal [facility] Comment on above: Order Comment: Speci men Type: BLOOD SPECIMENOrdering Facility: [facility] Address: [address] [place], [place] [address] Performed By: #### 5 7021-8 ####[facility] LABCLIA [id number] [address] LABCLIA [id number] [place] [address] Neutrophils (Bld) [#/Vol] 2.37 10*3/uL Normal 1.45-7.50 [facility] Comment on above: Order Comment: Speci men Type: BLOOD SPECIMENOrdering Facility: [facility] Address: [address] [place], [place] [address] Performed By: #### 5 7021-8 ####[facility] LABCLIA [id number] [address] [address] [facility] LABCLIA [id number] [place] [address] Neutrophils/100 WBC (Bld) 61.0 % Normal [facility] Comment on above: Order Comment: Speci men Type: BLOOD SPECIMENOrdering Facility: [facility] Address: [address] [place], [place] [address] Performed By: #### 5 7021-8 ####[facility] LABCLIA [id number] [place] [address] [facility] LABCLIA [id number] [place] [address] Nucleated RBC/100 WBC (Bld) [Ratio] 0.0 /100 WBC Normal [facility] Comment on above: Order Comment: Speci men Type: BLOOD SPECIMENOrdering Facility: [facility] Address: [address] [place] [address] Performed By: #### 5 7021-8 ####[facility] LABCLIA [id number] [place] [address] [facility] LABCLIA [id number] [place] [address] Ovalocytes LM Ql (Bld) Few Normal [facility] Comment on above: Order Comment: Speci men Type: BLOOD SPECIMENOrdering Facility: [facility] Address: [address] [place], [place] [address] Performed By: #### 5 7021-8 ####[facility] LABCLIA [id number] [address] [address] [facility] LABCLIA [id number] [place] [address] PLATELET ESTIMATE Adequate Normal [facility] Comment on above: Order Comment: Speci men Type: BLOOD SPECIMENOrdering Facility: [facility] Address: [address] [place] [address] Performed By: #### 5 7021-8 ####[facility] LABCLIA [id number] [address] LABCLIA [id number] [place] [address] Platelet mean volume (Bld) [Entitic vol] 13.9 fL High 9.0-12.7 [facility] Comment on above: Order Comment: Speci men Type: BLOOD SPECIMENOrdering Facility: [facility] Address: [address] [place] [address] Performed By: #### 5 7021-8 ####[facility] LABCLIA [id number] [address] LABCLIA [id number] [place] [address] Platelets (Bld) [#/Vol] 164 10*3/uL Normal 150-400 [facility] Comment on above: Order Comment: Speci men Type: BLOOD SPECIMENOrdering Facility: [facility] Address: [address] [place] [address] Result Comment: Samp le checked for clot Performed By: #### 5 7021-8 ####[facility] LABCLIA [id number] [address] LABCLIA [id number] [place] [address] Polychromasia LM Ql (Bld) Slight Normal [facility] Comment on above: Order Comment: Speci men Type: BLOOD SPECIMENOrdering Facility: [facility] Address: [address] [place] [address] Performed By: #### 5 7021-8 ####[facility] LABCLIA [id number] [address] LABCLIA [id number] [place] [address] RBC (Bld) [#/Vol] 2.45 10*6/uL Low 4.20-6.00 [facility] Comment on above: Order Comment: Speci men Type: BLOOD SPECIMENOrdering Facility: [facility] Address: [address] [place] [address] Performed By: #### 5 7021-8 ####[facility] LABCLIA [id number] [address] LABCLIA [id number] [place] [address] RBC FRAGMENTS Few Abnormal None Seen [facility] Comment on above: Order Comment: Speci men Type: BLOOD SPECIMENOrdering Facility: [facility] Address: [address] [place] [address] Performed By: #### 5 7021-8 ####[facility] LABCLIA [id number] [address] LABCLIA [id number] [place] [address] RED CELL MORPH Reviewed: see result s of individual morphologies Normal [facility] Comment on above: Order Comment: Speci men Type: BLOOD SPECIMENOrdering Facility: [facility] Address: [address] [place] [address] Performed By: #### 5 7021-8 ####[facility] LABCLIA [id number] [address] LABCLIA [id number] [place] [address] WAM - ABS BASO 0.04 k/uL Normal <0.11 [facility] Comment on above: Order Comment: Speci men Type: BLOOD SPECIMENOrdering Facility: [facility] Address: [address] [place] [address] Performed By: #### 5 7021-8 ####[facility] LABCLIA [id number] [place] [address] [facility] LABCLIA [id number] [place] [address] WAM - ABS MONO 0.39 k/uL Normal <0.87 [facility] Comment on above: Order Comment: Speci men Type: BLOOD SPECIMENOrdering Facility: [facility] Address: [address] [place] [address] Performed By: #### 5 7021-8 ####[facility] LABCLIA [id number] [address] LABCLIA [id number] [place] [address] WAM - MONO% 10.0 % Normal [facility] Comment on above: Order Comment: Speci men Type: BLOOD SPECIMENOrdering Facility: [facility] Address: [address] [place] [address] Performed By: #### 5 7021-8 ####[facility] LABCLIA [id number] [address] LABCLIA [id number] [place] [address] WAM ABSOLUTE NRBC <0.01 Normal <0.01 [facility] Comment on above: Order Comment: Speci men Type: BLOOD SPECIMENOrdering Facility: [facility] Address: [address] [place] [address] Performed By: #### 5 7021-8 ####[facility] LABCLIA [id number] [address] LABCLIA [id number] [place] [address] WBC (Bld) [#/Vol] 3.77 10*3/uL Normal 3.70-11.00 [facility] Comment on above: Order Comment: Speci men Type: BLOOD SPECIMENOrdering Facility: [facility] Address: [address] [place] [address] Result Comment: No c lot detected. Checked and Verified Performed By: #### 5 7021-8 ####[facility] LABCLIA [id number] [place] [address] [facility] LABCLIA [id number] [place] [address] WBC Left Shift Ql (Bld) Present Normal [facility] Comment on above: Order Comment: Speci men Type: BLOOD SPECIMENOrdering Facility: [facility] Address: [address] [place] [address] Performed By: #### 5 7021-8 ####[facility] LABCLIA [id number] [address] LABCLIA [id number] [place] [address] Comprehensive metabolic 2000 panelon 02-18-2022 Albumin [Mass/Vol] 3.9 g/dL Normal 3.9-4.9 [facility] Comment on above: Order Comment: Speci men Type: BLOOD SPECIMENOrdering Facility: [facility] Address: [address] [place] [address] Performed By: #### 2 4323-8, 2532-0 ####[facility] LABCLIA [id number] [place] [address] ALP [Catalytic activity/Vol] 68 U/L Normal 38-113 [facility] Comment on above: Order Comment: Speci men Type: BLOOD SPECIMENOrdering Facility: [facility] Address: [address] [place] [address] Performed By: #### 2 4323-8, 2531-0 ####[facility] LABCLIA [id number] [place] [address] ALT [Catalytic activity/Vol] 34 U/L Normal 10-54 [facility] Comment on above: Order Comment: Speci men Type: BLOOD SPECIMENOrdering Facility: [facility] Address: [address] [place], [place] [address] Performed By: #### 2 432-8, 2531-0 ####[facility] LABCLIA [id number] [place] [address] Anion gap [Moles/Vol] 10 mmol/L Normal 9-18 [facility] Comment on above: Order Comment: Speci men Type: BLOOD SPECIMENOrdering Facility: [facility] Address: [address] [place] [address] Performed By: #### 2 4328, 0 ####[facility] LABCLIA [id number] [place] [address] AST [Catalytic activity/Vol] 13 U/L Low 14-40 [facility] Comment on above: Order Comment: Speci men Type: BLOOD SPECIMENOrdering Facility: [facility] Address: [address] [place], [place] [address] Performed By: #### 2 43238, 0 ####[facility] LABCLIA [id number] [place] [address] Bilirubin [Mass/Vol] 0.7 mg/dL Normal 0.2-1.3 [facility] Comment on above: Order Comment: Speci men Type: BLOOD SPECIMENOrdering Facility: [facility] Address: [address] [place], [place] [address] Performed By: #### 2 4323-8, 2531-0 ####[facility] LABCLIA [id number] [place] [address] Calcium [Mass/Vol] 9.1 mg/dL Normal 8.5-10.2 [facility] Comment on above: Order Comment: Speci men Type: BLOOD SPECIMENOrdering Facility: [facility] Address: [address] [place] [address] Performed By: #### 2 4323-8, 2531-0 ####[facility] LABCLIA [id number] [place] [address] Chloride [Moles/Vol] 102 mmol/L Normal 97-105 [facility] Comment on above: Order Comment: Speci men Type: BLOOD SPECIMENOrdering Facility: [facility] Address: [address] [place] [address] Performed By: #### 2 4323-8, 2531-0 ####[facility] LABCLIA [id number] [place] [address] CO2 [Moles/Vol] 33 mmol/L High 22-30 [facility] Comment on above: Order Comment: Speci men Type: BLOOD SPECIMENOrdering Facility: [facility] Address: [address] [place] [address] Performed By: #### 2 4323-8, 2531-0 ####[facility] LABCLIA [id number] [place] [address] Creatinine [Mass/Vol] 1.90 mg/dL High 0.73-1.22 [facility] Comment on above: Order Comment: Speci men Type: BLOOD SPECIMENOrdering Facility: [facility] Address: [address] [place], [place] [address] Performed By: #### 2 4323-8, 2531-0 ####[facility] LABCLIA [id number] [place] [address] ESTIMATED GLOMERULAR FILTRATION RATE 35 mL/min/1.73m??? Low >=60 [facility] Comment on above: Order Comment: Speci men Type: BLOOD SPECIMENOrdering Facility: [facility] Address: [address] [place] [address] [place] [address] Result Comment: Faye mated Glomerular Filtration Rate [...] reflect actual GFR. Performed By: #### 2 432-8, 0 ####[facility] LABCLIA [id number] [place] [address] Glucose [Mass/Vol] 250 mg/dL High 74-99 [facility] Comment on above: Order Comment: Davi avendaño Type: BLOOD SPECIMENOrdering Facility: [facility] Address: [address] Result Comment: The [place] [employer] (ADA) provides guidance for cutoff [...] Standards of Medical Care in Diabetes 2016, [place] [employer]. Diabetes Care. 2016.39(Suppl 1). Performed By: #### 2 4328, ####[facility] LABCLIA [id number] [place] [address] Potassium [Moles/Vol] 4.0 mmol/L Normal 3.7-5.1 [facility] Comment on above: Order Comment: Davi avendaño Type: BLOOD SPECIMENOrdering Facility: [facility] Address: [address] [place] [address] Performed By: #### 2 4323-8, 0 ####[facility] LABCLIA [id number] [place] [address] Protein [Mass/Vol] 6.1 g/dL Low 6.3-8.0 [facility] Comment on above: Order Comment: Speci men Type: BLOOD SPECIMENOrdering Facility: [facility] Address: [address] [place] [address] Performed By: #### 2 4323-8, 2532-0 ####[facility] LABCLIA [id number] [place] [address] Sodium [Moles/Vol] 145 mmol/L High 136-144 [facility] Comment on above: Order Comment: Speci men Type: BLOOD SPECIMENOrdering Facility: [facility] Address: [address] [place] [address] Performed By: #### 2 4323-8, 2531-0 ####[facility] LABIA [id number] [place] [address] Urea nitrogen [Mass/Vol] 42 mg/dL High 9-24 [facility] Comment on above: Order Comment: Speci men Type: BLOOD SPECIMENOrdering Facility: [facility] Address: [address] [place] [address] Performed By: #### 2 4323-8, 2532-0 ####[facility] LABIA [id number] [place] [address] LDH SerPl-cCncon 02-18-2022 LDH [Catalytic activity/Vol] 248 U/L High 135-225 [facility] Comment on above: Order Comment: Speci men Type: BLOOD SPECIMENOrdering Facility: [facility] Address: [address] [place] [address] Performed By: #### 2 4323-8, 2532-0 ####[facility] LABIA [id number] [place] [address] PRBC LEUKOREDUCEDon 02-18-20 22 ABO and Rh group Nom (Bld) Cross Match Result Compatible Unit Blood Type A Pos Unit Number [id number] Status Information Transfused Product ID Red Blood Cells Product Code [id number] Cross Match Result Compatible Unit Blood Type A Pos Unit Number [id number] Status Information Transfused Product ID Red Blood Cells Product Code [id number] Normal [facility] Comment on above: Performed By: #### P RBC, TNS #### [facility] [address] [place] [address] [address] Benito To CBC W Auto Differential pane l (Bld)on 02-15-2022 Anisocytosis Ql (Bld) Present Normal [facility] Comment on above: Order Comment: Speci men Type: BLOOD SPECIMENOrdering Facility: [facility] Address: [address] [place] [address] Performed By: #### 5 7021-8 ####[facility] LABCLIA [id number] [address] LABCLIA [id number] [place] [address] Basophils/100 WBC (Bld) 0.0 % Normal [facility] Comment on above: Order Comment: Speci men Type: BLOOD SPECIMENOrdering Facility: [facility] Address: [address] [place] [address] Performed By: #### 5 7021-8 ####[facility] LABCLIA [id number] [address] LABCLIA [id number] [place] [address] Differential cell count method Nom (Bld) Manual Normal [facility] Comment on above: Order Comment: Speci men Type: BLOOD SPECIMENOrdering Facility: [facility] Address: [address] [place] [address] Performed By: #### 5 7021-8 ####[facility] LABCLIA [id number] [address] LABCLIA [id number] [place] [address] Eosinophils (Bld) [#/Vol] 0.00 10*3/uL Normal <0.46 [facility] Comment on above: Order Comment: Speci men Type: BLOOD SPECIMENOrdering Facility: [facility] Address: [address] [place] [address] Performed By: #### 5 7021-8 ####[facility] LABCLIA [id number] [address] LABCLIA [id number] [place] [address] Eosinophils/100 WBC (Bld) 0.0 % Normal [facility] Comment on above: Order Comment: Speci men Type: BLOOD SPECIMENOrdering Facility: [facility] Address: [address] [place] [address] Performed By: #### 5 7021-8 ####[facility] LABCLIA [id number] [address] LABCLIA [id number] [place] [address] Erythrocyte distribution width (RBC) [Ratio] 24.0 % High 11.5-15.0 [facility] Comment on above: Order Comment: Speci men Type: BLOOD SPECIMENOrdering Facility: [facility] Address: [address] [place] [address] Result Comment: Suresh ected result: Previously reported as 24.0 % on 02/15/2022 at 1:41 PM EDT.Corrected result: Previously reported as 23.8 % on 02/15/2022 at 11:23 PM EDT. Performed By: #### 5 7021-8 ####[facility] LABCLIA [id number] [address] LABCLIA [id number] [place] [id number] Giant platelets LM Ql (Bld) Occasional Normal [facility] Comment on above: Order Comment: Speci men Type: BLOOD SPECIMENOrdering Facility: [facility] Address: [address] [place] [address] Performed By: #### 5 7021-8 ####[facility] LABCLIA [id number] [address] LABCLIA [id number] [place] [address] Hematocrit (Bld) [Volume fraction] 24.6 % Low 39.0-51.0 [facility] Comment on above: Order Comment: Speci men Type: BLOOD SPECIMENOrdering Facility: [facility] Address: [address] [place] [address] Result Comment: Suresh ected result: Previously reported as 24.6 % on 02/15/2022 at 1:41 PM EDT.Corrected result: Previously reported as 24.8 % on 02/15/2022 at 11:23 PM EDT. Performed By: #### 5 7021-8 ####[facility] LABCLIA [id number] [address] LABCLIA [id number] [place] [id number] Hemoglobin (Bld) [Mass/Vol] 7.9 g/dL Low 13.0-17.0 [facility] Comment on above: Order Comment: Speci men Type: BLOOD SPECIMENOrdering Facility: [facility] Address: [address] [place] [address] Result Comment: Suresh ected result: Previously reported as 7.9 g/dL on 02/15/2022 at 1:41 PM EDT.Corrected result: Previously reported as 8.0 g/dL on 02/15/2022 at 11:23 PM EDT. Performed By: #### 5 7021-8 ####[facility] LABCLIA [id number] [address] LABCLIA [id number] [place] [address] Lymphocytes (Bld) [#/Vol] 0.87 10*3/uL Low 1.00-4.00 [facility] Comment on above: Order Comment: Speci men Type: BLOOD SPECIMENOrdering Facility: [facility] Address: [address] [place] [address] Performed By: #### 5 7021-8 ####[facility] LABCLIA [id number] [address] LABCLIA [id number] [place] [address] Lymphocytes/100 WBC (Bld) 18.0 % Normal [facility] Comment on above: Order Comment: Speci men Type: BLOOD SPECIMENOrdering Facility: [facility] Address: [address] [place] [address] Performed By: #### 5 7021-8 ####[facility] LABCLIA [id number] [address] LABCLIA [id number] [place] [address] MCH (RBC) [Entitic mass] 33.5 pg Normal 26.0-34.0 [facility] Comment on above: Order Comment: Speci men Type: BLOOD SPECIMENOrdering Facility: [facility] Address: [address] [place] [address] Result Comment: Suresh ected result: Previously reported as 33.5 pg on 02/15/2022 at 1:41 PM EDT.Corrected result: Previously reported as 33.9 pg on 02/15/2022 at 11:23 PM EDT. Performed By: #### 5 7021-8 ####[facility] LABCLIA [id number] [address] LABCLIA [id number] [place] [address] MCHC (RBC) [Mass/Vol] 32.1 g/dL Normal 30.5-36.0 [facility] Comment on above: Order Comment: Speci men Type: BLOOD SPECIMENOrdering Facility: [facility] Address: [address] [place] [address] Result Comment: Suresh ected result: Previously reported as 32.1 g/dL on 02/15/2022 at 1:41 PM EDT.Corrected result: Previously reported as 32.3 g/dL on 02/15/2022 at 11:23 PM EDT. Performed By: #### 5 7021-8 ####[facility] LABCLIA [id number] [address] LABCLIA [id number] [place] [id number] MCV (RBC) [Entitic vol] 104.2 fL High 80.0-100.0 [facility] Comment on above: Order Comment: Speci men Type: BLOOD SPECIMENOrdering Facility: [facility] Address: [address] [place] [address] Result Comment: Suresh ected result: Previously reported as 104.2 fL on 02/15/2022 at 1:41 PM EDT.Corrected result: Previously reported as 105.1 fL on 02/15/2022 at 11:23 PM EDT. Performed By: #### 5 7021-8 ####[facility] LABCLIA [id number] [address] LABCLIA [id number] [place] [address] Neutrophils (Bld) [#/Vol] 3.54 10*3/uL Normal 1.45-7.50 [facility] Comment on above: Order Comment: Speci men Type: BLOOD SPECIMENOrdering Facility: [facility] Address: [address] [place] [address] Performed By: #### 5 7021-8 ####[facility] LABCLIA [id number] [place] [id number] [facility] LABCLIA [id number] [place] [address] Neutrophils/100 WBC (Bld) 73.0 % Normal [facility] Comment on above: Order Comment: Speci men Type: BLOOD SPECIMENOrdering Facility: [facility] Address: [address] [place] [address] Performed By: #### 5 7021-8 ####[facility] LABCLIA [id number] [address] LABCLIA [id number] [place] [address] Nucleated RBC/100 WBC (Bld) [Ratio] 0.0 /100 WBC Normal [facility] Comment on above: Order Comment: Speci men Type: BLOOD SPECIMENOrdering Facility: [facility] Address: [address] [place] [address] Performed By: #### 5 7021-8 ####[facility] LABCLIA [id number] [address] LABCLIA [id number] [place] [address] Ovalocytes LM Ql (Bld) Few Normal [facility] Comment on above: Order Comment: Speci men Type: BLOOD SPECIMENOrdering Facility: [facility] Address: [address] [place] [address] Performed By: #### 5 7021-8 ####[facility] LABCLIA [id number] [place] [id number] [facility] LABCLIA [id number] [place] [address] PLATELET ESTIMATE Adequate Normal [facility] Comment on above: Order Comment: Speci men Type: BLOOD SPECIMENOrdering Facility: [facility] Address: [address] [place] [address] Performed By: #### 5 [id number] ####[facility] LABCLIA [id number] [address] LABCLIA [id number] [place] [address] Platelet mean volume (Bld) [Entitic vol] 14.0 fL High 9.0-12.7 [facility] Comment on above: Order Comment: Speci men Type: BLOOD SPECIMENOrdering Facility: [facility] Address: [address] [place] [address] Result Comment: Suresh ected result: Previously reported as 14.0 fL on 02/15/2022 at 1:41 PM EDT.Corrected result: Previously reported as 15.1 fL on 02/15/2022 at 11:23 PM EDT. Performed By: #### 5 7021-8 ####[facility] LABCLIA [id number] [address] LABCLIA [id number] [place] [address] Platelets (Bld) [#/Vol] 170 10*3/uL Normal 150-400 [facility] Comment on above: Order Comment: Speci men Type: BLOOD SPECIMENOrdering Facility: [facility] Address: [address] [place] [address] Result Comment: Samp le checked for clotCorrected result: Previously reported as 170 k/uL on 02/15/2022 at 1:41 PM EDT.Corrected result: Previously reported as 158 k/uL on 02/15/2022 at 11:23 PM EDT. Performed By: #### 5 7021-8 ####[facility] LABCLIA [id number] [address] [address] [facility] LABCLIA [id number] [place] [address] Polychromasia LM Ql (Bld) Slight Normal [facility] Comment on above: Order Comment: Speci men Type: BLOOD SPECIMENOrdering Facility: [facility] Address: [address] [place] [address] Performed By: #### 5 7021-8 ####[facility] LABCLIA [id number] [address] LABCLIA [id number] [place] [address] RBC (Bld) [#/Vol] 2.36 10*6/uL Low 4.20-6.00 [facility] Comment on above: Order Comment: Speci men Type: BLOOD SPECIMENOrdering Facility: [facility] Address: [address] [place] [address] Performed By: #### 5 7021-8 ####[facility] LABCLIA [id number] [address] LABCLIA [id number] [place] [address] RBC FRAGMENTS Few Abnormal None Seen [facility] Comment on above: Order Comment: Speci men Type: BLOOD SPECIMENOrdering Facility: [facility] Address: [address] [place] [address] Performed By: #### 5 7021-8 ####[facility] LABCLIA [id number] [address] LABCLIA [id number] [place] [address] RED CELL MORPH Reviewed: see result s of individual morphologies Normal [facility] Comment on above: Order Comment: Speci men Type: BLOOD SPECIMENOrdering Facility: [facility] Address: [address] [place], [place] [address] Performed By: #### 5 7021-8 ####[facility] LABCLIA [id number] [place] [id number] [facility] LABCLIA [id number] [place] [address] WAM - ABS BASO 0.00 k/uL Normal <0.11 [facility] Comment on above: Order Comment: Speci men Type: BLOOD SPECIMENOrdering Facility: [facility] Address: [address] [place] [address] Performed By: #### 5 7021-8 ####[facility] LABCLIA [id number] [address] LABCLIA [id number] [place] [address] WAM - ABS MONO 0.44 k/uL Normal <0.87 [facility] Comment on above: Order Comment: Speci men Type: BLOOD SPECIMENOrdering Facility: [facility] Address: [address] [place] [address] Performed By: #### 5 7021-8 ####[facility] LABCLIA [id number] [place] [id number] [facility] LABCLIA [id number] [place] [address] WAM - MONO% 9.0 % Normal [facility] Comment on above: Order Comment: Speci men Type: BLOOD SPECIMENOrdering Facility: [facility] Address: [address] [place] [address] Performed By: #### 5 7021-8 ####[facility] LABCLIA [id number] [place] [id number] [facility] LABCLIA [id number] [place] [address] WAM ABSOLUTE NRBC <0.01 Normal <0.01 [facility] Comment on above: Order Comment: Speci men Type: BLOOD SPECIMENOrdering Facility: [facility] Address: [address] [place], [place] [address] Performed By: #### 5 7021-8 ####[facility] LABCLIA [id number] [place] [id number] [facility] LABCLIA [id number] [place] [address] WBC (Bld) [#/Vol] 4.85 10*3/uL Normal 3.70-11.00 [facility] Comment on above: Order Comment: Speci men Type: BLOOD SPECIMENOrdering Facility: [facility] Address: [address] [place], [place] [address] Performed By: #### 5 7021-8 ####[facility] LABCLIA [id number] [address] LABCLIA [id number] [place] [address] Comprehensive metabolic 2000 panelon 02-15-2022 Albumin [Mass/Vol] 3.9 g/dL Normal 3.9-4.9 [facility] Comment on above: Order Comment: Speci men Type: BLOOD SPECIMENOrdering Facility: [facility] Address: [address] [place], [place] [address] Performed By: #### 2 532-0, 64384-5 ####[facility] LABCLIA [id number] [place] [address] ALP [Catalytic activity/Vol] 64 U/L Normal 38-113 [facility] Comment on above: Order Comment: Speci men Type: BLOOD SPECIMENOrdering Facility: [facility] Address: [address] [place], [place] [address] Performed By: #### 2 532-0, 84951-6 ####[facility] LABCLIA [id number] [place] [address] ALT [Catalytic activity/Vol] 26 U/L Normal 10-54 [facility] Comment on above: Order Comment: Speci men Type: BLOOD SPECIMENOrdering Facility: [facility] Address: [address] [place] [address] Performed By: #### 2 532-0, 79889-1 ####[facility] LABCLIA [id number] [place] [address] Anion gap [Moles/Vol] 13 mmol/L Normal 9-18 [facility] Comment on above: Order Comment: Speci men Type: BLOOD SPECIMENOrdering Facility: [facility] Address: [address] [place] [address] Performed By: #### 2 532-0, 45960-0 ####[facility] LABCLIA [id number] [place] [address] AST [Catalytic activity/Vol] 11 U/L Low 14-40 [facility] Comment on above: Order Comment: Speci men Type: BLOOD SPECIMENOrdering Facility: [facility] Address: [address] [place] [address] Performed By: #### 2 532-0, ####[facility] LABCLIA [id number] [place] [address] Bilirubin [Mass/Vol] 0.4 mg/dL Normal 0.2-1.3 [facility] Comment on above: Order Comment: Speci men Type: BLOOD SPECIMENOrdering Facility: [facility] Address: [address] [place] [address] Performed By: #### 2 532-0, 66346-4 ####[facility] LABCLIA [id number] [place] [address] Calcium [Mass/Vol] 8.9 mg/dL Normal 8.5-10.2 [facility] Comment on above: Order Comment: Speci men Type: BLOOD SPECIMENOrdering Facility: [facility] Address: [address] [place] [address] Performed By: #### 2 532-0, 11558-7 ####[facility] LABCLIA [id number] [place] [address] Chloride [Moles/Vol] 102 mmol/L Normal 97-105 [facility] Comment on above: Order Comment: Speci men Type: BLOOD SPECIMENOrdering Facility: [facility] Address: [address] [place] [address] Performed By: #### 2 532-0, ####[facility] LABCLIA [id number] [place] [address] CO2 [Moles/Vol] 26 mmol/L Normal 22-30 [facility] Comment on above: Order Comment: Speci men Type: BLOOD SPECIMENOrdering Facility: [facility] Address: [address] [place] [address] Performed By: #### 2 532-0, ####[facility] LABIA [id number] [place] [address] Creatinine [Mass/Vol] 2.24 mg/dL High 0.73-1.22 [facility] Comment on above: Order Comment: Speci men Type: BLOOD SPECIMENOrdering Facility: [facility] Address: [address] [place] [address] Performed By: #### 2 532-0, ####[facility] LABCLIA [id number] [place] [address] ESTIMATED GLOMERULAR FILTRATION RATE 28 mL/min/1.73m??? Low >=60 [facility] Comment on above: Order Comment: Speci men Type: BLOOD SPECIMENOrdering Facility: [facility] Address: [address] [place] [address] Result Comment: Faye mated Glomerular Filtration Rate [...] actual GFR. Performed By: #### 2 532-0, 34993-2 ####[facility] LABCLIA [id number] [place] [address] Glucose [Mass/Vol] 206 mg/dL High 74-99 [facility] Comment on above: Order Comment: Davi avendaño Type: BLOOD SPECIMENOrdering Facility: [facility] Address: [address] [place], [place] [address] Result Comment: The [place] [employer] (ADA) provides guidance for cutoff [...] Standards of Medical Care in Diabetes 2016, [place] [employer]. Diabetes Care. 2016.39(Suppl 1). Performed By: #### 2 532-0, 39025-6 ####[facility] LABCLIA [id number] [place] [address] Potassium [Moles/Vol] 3.7 mmol/L Normal 3.7-5.1 [facility] Comment on above: Order Comment: Davi avendaño Type: BLOOD SPECIMENOrdering Facility: [facility] Address: [address] [place] [address] Performed By: #### 2 532-0, 98245-7 ####[facility] LABCLIA [id number] [place] [address] Protein [Mass/Vol] 6.0 g/dL Low 6.3-8.0 [facility] Comment on above: Order Comment: Speci men Type: BLOOD SPECIMENOrdering Facility: [facility] Address: [address] [place] [address] Performed By: #### 2 532-0, ####[facility] LABCLIA [id number] [place] [address] Sodium [Moles/Vol] 141 mmol/L Normal 136-144 [facility] Comment on above: Order Comment: Speci men Type: BLOOD SPECIMENOrdering Facility: [facility] Address: [address] [place] [address] Performed By: #### 2 532-0, ####[facility] LABCLIA [id number] [place] [address] Urea nitrogen [Mass/Vol] 52 mg/dL High 9-24 [facility] Comment on above: Order Comment: Speci men Type: BLOOD SPECIMENOrdering Facility: [facility] Address: [address] [place] [address] Performed By: #### 2 532-0, ####[facility] LABCLIA [id number] [place] [address] Albumin [Mass/Vol] 3.9 g/dL 3.9 - 4.9 g/dL [facility] ALP [Catalytic activity/Vol] 64 U/L 38 - 113 U/L [facility] ALT [Catalytic activity/Vol] 26 U/L 10 - 54 U/L [facility] Anion gap [Moles/Vol] 13 mmol/L 9 - 18 mmol/L [facility] AST [Catalytic activity/Vol] 11 U/L Low 14 - 40 U/L [facility] Bilirubin [Mass/Vol] 0.4 mg/dL 0.2 - 1.3 mg/dL [facility] Calcium [Mass/Vol] 8.9 mg/dL 8.5 - 10.2 mg/dL [facility] Chloride [Moles/Vol] 102 mmol/L 97 - 105 mmol/L [facility] CO2 [Moles/Vol] 26 mmol/L 22 - 30 mmol/L [facility] Creatinine [Mass/Vol] 2.24 mg/dL High 0.73 - 1.22 mg/dL [facility] Estimated Glomerular Filtration Rate 28 mL/min/1.73m Low >=60 mL/min/1.73m [facility] Glucose [Mass/Vol] 206 mg/dL High 74 - 99 mg/dL [facility] Potassium [Moles/Vol] 3.7 mmol/L 3.7 - 5.1 mmol/L [facility] Protein [Mass/Vol] 6.0 g/dL Low 6.3 - 8.0 g/dL [facility] Sodium [Moles/Vol] 141 mmol/L 136 - 144 mmol/L [facility] Urea nitrogen [Mass/Vol] 52 mg/dL High 9 - 24 mg/dL [facility] LD LACTATE DEHYDROon 022 LDH [Catalytic activity/Vol] 250 U/L High 135 - 225 U/L [facility] LDH SerPl-cCncon 02-15-2022 LDH [Catalytic activity/Vol] 250 U/L High 135-225 [facility] Comment on above: Order Comment: Speci men Type: BLOOD SPECIMENOrdering Facility: [facility] Address: [address] [place] [address] Performed By: #### 2 532-0, 73014-9 ####[facility] LABCLIA [id number] [place] [address] CBC W Auto Differential pane l (Bld)on 02-11-2022 Basophils (Bld) [#/Vol] 0.03 10*3/uL Normal <0.11 [facility] Comment on above: Order Comment: Speci men Type: BLOOD SPECIMENOrdering Facility: [facility] Address: [address] [place] [address] Performed By: #### 5 7021-8 ####[facility] LABCLIA [id number] [place] [address] Basophils/100 WBC (Bld) 1.2 % Normal [facility] Comment on above: Order Comment: Speci men Type: BLOOD SPECIMENOrdering Facility: [facility] Address: [address] [place] [address] Performed By: #### 5 7021-8 ####[facility] LABCLIA [id number] [place] [address] Differential cell count method Nom (Bld) Auto Normal [facility] Comment on above: Order Comment: Speci men Type: BLOOD SPECIMENOrdering Facility: [facility] Address: [address] [place] [address] Performed By: #### 5 7021-8 ####[facility] LABCLIA [id number] [place] [address] Eosinophils (Bld) [#/Vol] 10*3/uL Normal <0.46 [facility] Comment on above: Order Comment: Speci men Type: BLOOD SPECIMENOrdering Facility: [facility] Address: [address] [place] [address] Performed By: #### 5 7021-8 ####[facility] LABCLIA [id number] [place] [address] Eosinophils/100 WBC (Bld) 0.0 % Normal [facility] Comment on above: Order Comment: Speci men Type: BLOOD SPECIMENOrdering Facility: [facility] Address: [address] [place] [address] Performed By: #### 5 7021-8 ####[facility] LABCLIA [id number] [place] [address] Erythrocyte distribution width (RBC) [Ratio] 23.6 % High 11.5-15.0 [facility] Comment on above: Order Comment: Speci men Type: BLOOD SPECIMENOrdering Facility: [facility] Address: [address] [place] [address] Performed By: #### 5 7021-8 ####[facility] LABCLIA [id number] [place] [address] Hematocrit (Bld) [Volume fraction] 25.5 % Low 39.0-51.0 [facility] Comment on above: Order Comment: Speci men Type: BLOOD SPECIMENOrdering Facility: [facility] Address: [address] [place] [address] Performed By: #### 5 7021-8 ####[facility] LABIA [id number] [place] [address] Hemoglobin (Bld) [Mass/Vol] 8.1 g/dL Low 13.0-17.0 [facility] Comment on above: Order Comment: Speci men Type: BLOOD SPECIMENOrdering Facility: [facility] Address: [address] [place] [address] Performed By: #### 5 7021-8 ####[facility] LABIA [id number] [place] [address] IMMATURE GRAN % 1.6 % Normal [facility] Comment on above: Order Comment: Speci men Type: BLOOD SPECIMENOrdering Facility: [facility] Address: [address] [place] [address] Performed By: #### 5 7021-8 ####[facility] LABIA [id number] [place] [address] IMMATURE GRAN ABS 0.04 k/uL Normal <0.10 [facility] Comment on above: Order Comment: Speci men Type: BLOOD SPECIMENOrdering Facility: [facility] Address: [address] [place] [address] Performed By: #### 5 7021-8 ####[facility] LABIA [id number] [place] [address] Lymphocytes (Bld) [#/Vol] 1.17 10*3/uL Normal 1.00-4.00 [facility] Comment on above: Order Comment: Speci men Type: BLOOD SPECIMENOrdering Facility: [facility] Address: [address] [place] [address] Performed By: #### 5 7021-8 ####[facility] LABCLIA [id number] [place] [address] Lymphocytes/100 WBC (Bld) 46.4 % Normal [facility] Comment on above: Order Comment: Speci men Type: BLOOD SPECIMENOrdering Facility: [facility] Address: [address] [place] [address] Performed By: #### 5 7021-8 ####[facility] LABCLIA [id number] [place] [address] MCH (RBC) [Entitic mass] 33.8 pg Normal 26.0-34.0 [facility] Comment on above: Order Comment: Speci men Type: BLOOD SPECIMENOrdering Facility: [facility] Address: [address] [place] [address] Performed By: #### 5 7021-8 ####[facility] LABIA [id number] [place] [address] MCHC (RBC) [Mass/Vol] 31.8 g/dL Normal 30.5-36.0 [facility] Comment on above: Order Comment: Speci men Type: BLOOD SPECIMENOrdering Facility: [facility] Address: [address] [place] [address] Performed By: #### 5 7021-8 ####[facility] LABCLIA [id number] [place] [address] MCV (RBC) [Entitic vol] 106.3 fL High 80.0-100.0 [facility] Comment on above: Order Comment: Speci men Type: BLOOD SPECIMENOrdering Facility: [facility] Address: [address] [place] [address] Performed By: #### 5 7021-8 ####[facility] LABCLIA [id number] [place] [address] Monocytes (Bld) [#/Vol] 0.58 10*3/uL Normal <0.87 [facility] Comment on above: Order Comment: Speci men Type: BLOOD SPECIMENOrdering Facility: [facility] Address: [address] [place] [address] Performed By: #### 5 7021-8 ####[facility] LABCLIA [id number] [place] [address] Monocytes/100 WBC (Bld) 23.0 % Normal [facility] Comment on above: Order Comment: Speci men Type: BLOOD SPECIMENOrdering Facility: [facility] Address: [address] [place] [address] Performed By: #### 5 7021-8 ####[facility] LABCLIA [id number] [place] [address] Neutrophils (Bld) [#/Vol] 0.70 10*3/uL Low 1.45-7.50 [facility] Comment on above: Order Comment: Speci men Type: BLOOD SPECIMENOrdering Facility: [facility] Address: [address] [place] [address] Performed By: #### 5 7021-8 ####[facility] LABCLIA [id number] [place] [address] Neutrophils/100 WBC (Bld) 27.8 % Normal [facility] Comment on above: Order Comment: Speci men Type: BLOOD SPECIMENOrdering Facility: [facility] Address: [address] [place], [place] [address] Performed By: #### 5 7021-8 ####[facility] LABIA [id number] [place] [address] Nucleated RBC (Bld) [#/Vol] 10*3/uL Normal <0.01 [facility] Comment on above: Order Comment: Speci men Type: BLOOD SPECIMENOrdering Facility: [facility] Address: [address] [place], [place] [address] Performed By: #### 5 7021-8 ####[facility] LABCLIA [id number] [place] [address] Nucleated RBC/100 WBC (Bld) [Ratio] 0.0 /100 WBC Normal [facility] Comment on above: Order Comment: Speci men Type: BLOOD SPECIMENOrdering Facility: [facility] Address: [address] [place] [address] Performed By: #### 5 7021-8 ####[facility] LABCLIA [id number] [place] [address] Platelet mean volume (Bld) [Entitic vol] 12.8 fL High 9.0-12.7 [facility] Comment on above: Order Comment: Speci men Type: BLOOD SPECIMENOrdering Facility: [facility] Address: [address] [place] [address] Performed By: #### 5 7021-8 ####[facility] LABCLIA [id number] [place] [address] Platelets (Bld) [#/Vol] 135 10*3/uL Low 150-400 [facility] Comment on above: Order Comment: Speci men Type: BLOOD SPECIMENOrdering Facility: [facility] Address: [address] [place] [address] Performed By: #### 5 7021-8 ####[facility] LABCLIA [id number] [place] [address] RBC (Bld) [#/Vol] 2.40 10*6/uL Low 4.20-6.00 [facility] Comment on above: Order Comment: Speci men Type: BLOOD SPECIMENOrdering Facility: [facility] Address: [address] [place] [address] Performed By: #### 5 7021-8 ####[facility] LABCLIA [id number] [place] [address] WBC (Bld) [#/Vol] 2.52 10*3/uL Low 3.70-11.00 [facility] Comment on above: Order Comment: Speci men Type: BLOOD SPECIMENOrdering Facility: [facility] Address: [address] [place] [address] Performed By: #### 5 7021-8 ####[facility] LABCLIA [id number] [place] [address] CNOVSPon 02-11-2022 CNOVSP Normal [facility] metabolic 2000 panelon 02-11-2022 Albumin [Mass/Vol] 4.0 g/dL Normal 3.9-4.9 [facility] Comment on above: Order Comment: Speci men Type: BLOOD SPECIMENOrdering Facility: [facility] Address: [address] [place] [address] Performed By: #### 2 4323-8, 2532-0 ####[facility] LABCLIA [id number] [place] [address] ALP [Catalytic activity/Vol] 79 U/L Normal 38-113 [facility] Comment on above: Order Comment: Speci men Type: BLOOD SPECIMENOrdering Facility: [facility] Address: [address] [place] [address] Performed By: #### 2 4323-8, 2532-0 ####[facility] LABCLIA [id number] [place] [address] ALT [Catalytic activity/Vol] 23 U/L Normal 10-54 [facility] Comment on above: Order Comment: Speci men Type: BLOOD SPECIMENOrdering Facility: [facility] Address: [address] [place] [address] Performed By: #### 2 4323-8, 2532-0 ####[facility] LABCLIA [id number] [place] [address] Anion gap [Moles/Vol] 10 mmol/L Normal 9-18 [facility] Comment on above: Order Comment: Speci men Type: BLOOD SPECIMENOrdering Facility: [facility] Address: [address] [place] [address] Performed By: #### 2 4323-8, 2531-0 ####[facility] LABCLIA [id number] [place] [address] AST [Catalytic activity/Vol] 14 U/L Normal 14-40 [facility] Comment on above: Order Comment: Speci men Type: BLOOD SPECIMENOrdering Facility: [facility] Address: [address] [place], [place] [address] Performed By: #### 2 432-8, 2531-0 ####[facility] LABCLIA [id number] [place] [address] Bilirubin [Mass/Vol] 0.6 mg/dL Normal 0.2-1.3 [facility] Comment on above: Order Comment: Speci men Type: BLOOD SPECIMENOrdering Facility: [facility] Address: [address] [place] [address] Performed By: #### 2 432-8, 2531-0 ####[facility] LABIA [id number] [place] [address] Calcium [Mass/Vol] 8.5 mg/dL Normal 8.5-10.2 [facility] Comment on above: Order Comment: Speci men Type: BLOOD SPECIMENOrdering Facility: [facility] Address: [address] [place], [place] [address] Performed By: #### 2 4323-8, 2531-0 ####[facility] LABIA [id number] [place] [address] Chloride [Moles/Vol] 101 mmol/L Normal 97-105 [facility] Comment on above: Order Comment: Speci men Type: BLOOD SPECIMENOrdering Facility: [facility] Address: [address] [place], [place] [id number] Performed By: #### 2 432-, 2532-0 ####[facility] LABCLIA [id number] [place] [address] CO2 [Moles/Vol] 29 mmol/L Normal 22-30 [facility] [facility] Comment on above: Order Comment: Speci men Type: BLOOD SPECIMENOrdering Facility: [facility] Address: [address] [place] [address] Performed By: #### 2 43238, ####[facility] LABCLIA [id number] [place] [address] Creatinine [Mass/Vol] 2.06 mg/dL High 0.73-1.22 [facility] Comment on above: Order Comment: Speci men Type: BLOOD SPECIMENOrdering Facility: [facility] Address: [address] [place] [address] Performed By: #### 2 4328, ####[facility] LABIA [id number] [place] [address] ESTIMATED GLOMERULAR FILTRATION RATE 31 mL/min/1.73m??? Low >=60 [facility] Comment on above: Order Comment: Speci men Type: BLOOD SPECIMENOrdering Facility: [facility] Address: [address] [place] [address] Result Comment: Faye mated Glomerular Filtration Rate [...] actual GFR. Performed By: #### 2 4328, ####[facility] LABCLIA [id number] [place] [address] Glucose [Mass/Vol] 129 mg/dL High 74-99 [facility] Comment on above: Order Comment: Speci men Type: BLOOD SPECIMENOrdering Facility: [facility] Address: [address] [id number] Result Comment: The [place] Diabetes Association (ADA) provides guidance for cutoff [...] Standards of Medical Care in Diabetes 2016, [place] [employer]. Diabetes Care. 2016.39(Suppl 1). Performed By: #### 2 4323-8, ####[facility] LABCLIA [id number] [place] [address] Potassium [Moles/Vol] 4.4 mmol/L Normal 3.7-5.1 [facility] Comment on above: Order Comment: Speci men Type: BLOOD SPECIMENOrdering Facility: [facility] Address: [address] Performed By: #### 2 4323-8, ####[facility] LABCLIA [id number] [place] [address] Protein [Mass/Vol] 6.2 g/dL Low 6.3-8.0 [facility] Comment on above: Order Comment: Speci men Type: BLOOD SPECIMENOrdering Facility: [facility] Address: [address] Performed By: #### 2 4323-8, ####[facility] LABCLIA [id number] [place] [address] Sodium [Moles/Vol] 140 mmol/L Normal 136-144 [facility] Comment on above: Order Comment: Speci men Type: BLOOD SPECIMENOrdering Facility: [facility] Address: [address] [place], [place] [address] Performed By: #### 2 4323-8, 2532-0 ####[facility] LABCLIA [id number] [place] [address] Urea nitrogen [Mass/Vol] 21 mg/dL Normal 9-24 [facility] Comment on above: Order Comment: Speci men Type: BLOOD SPECIMENOrdering Facility: [facility] Address: [address] [place] [address] Performed By: #### 2 4323-8, 2532-0 ####[facility] LABIA [id number] [place] [address] LDH SerPl-cCncon 02-11-2022 LDH [Catalytic activity/Vol] 239 U/L High 135-225 [facility] Comment on above: Order Comment: Speci men Type: BLOOD SPECIMENOrdering Facility: [facility] Address: [address] [place] [address] Performed By: #### 2 4323-8, 2532-0 ####[facility] LABIA [id number] [place] [id number] CBC W Auto Differential pane l (Bld)on 02-04-2022 Anisocytosis Ql (Bld) Present Normal [facility] Comment on above: Order Comment: Speci men Type: BLOOD SPECIMENOrdering Facility: [facility] Address: [address] [place] [address] Performed By: #### 5 7021-8 ####[facility] LABIA [id number] [place], [place] [address] LABCLIA [id number] [place] [address] [place] Basophils/100 WBC (Bld) 0.9 % Normal [facility] Comment on above: Order Comment: Speci men Type: BLOOD SPECIMENOrdering Facility: [facility] Address: [address] [place], [place] [address] Performed By: #### 5 7021-8 ####[facility] LABCLIA [id number] [address] LABCLIA [id number] [place] [address] [place] Eosinophils (Bld) [#/Vol] 0.06 10*3/uL Normal <0.46 [facility] Comment on above: Order Comment: Speci men Type: BLOOD SPECIMENOrdering Facility: [facility] Address: [address] [place], [place] [address] Performed By: #### 5 7021-8 ####[facility] LABCLIA [id number] [address] LABCLIA [id number] [place] [address] [place] Eosinophils/100 WBC (Bld) 2.6 % Normal [facility] Comment on above: Order Comment: Speci men Type: BLOOD SPECIMENOrdering Facility: [facility] Address: [address] Performed By: #### 5 7021-8 ####[facility] LABCLIA [id number] [address] LABCLIA [id number] [place] [address] [place] Erythrocyte distribution width (RBC) [Ratio] 23.8 % High 11.5-15.0 [facility] Comment on above: Order Comment: Speci men Type: BLOOD SPECIMENOrdering Facility: [facility] Address: [address] [place] [address] Performed By: #### 5 7021-8 ####[facility] LABCLIA [id number] [address] LABCLIA [id number] [place] [id number] [place] Hematocrit (Bld) [Volume fraction] 21.4 % Low 39.0-51.0 [facility] Comment on above: Order Comment: Speci men Type: BLOOD SPECIMENOrdering Facility: [facility] Address: [address] [place] [address] Performed By: #### 5 7021-8 ####[facility] LABCLIA [id number] [address] LABCLIA [id number] [place] [address] [place] Hemoglobin (Bld) [Mass/Vol] 6.8 g/dL Low 13.0-17.0 [facility] Comment on above: Order Comment: Speci men Type: BLOOD SPECIMENOrdering Facility: [facility] Address: [address] [place] [address] Performed By: #### 5 7021-8 ####[facility] LABCLIA [id number] [address] LABCLIA [id number] [place] [address] [place] Lymphocytes (Bld) [#/Vol] 0.82 10*3/uL Low 1.00-4.00 [facility] Comment on above: Order Comment: Speci men Type: BLOOD SPECIMENOrdering Facility: [facility] Address: [address] [place], [place] [address] Performed By: #### 5 7021-8 ####[facility] LABCLIA [id number] [address] LABCLIA [id number] [place] [address] [place] Lymphocytes/100 WBC (Bld) 38.8 % Normal [facility] Comment on above: Order Comment: Speci men Type: BLOOD SPECIMENOrdering Facility: [facility] Address: [address] [place], [place] [phone] Performed By: #### 5 7021-8 ####[facility] LABCLIA [id number] [address] LABCLIA [id number] [place] [address] [place] MCH (RBC) [Entitic mass] 34.7 pg High 26.0-34.0 [facility] Comment on above: Order Comment: Speci men Type: BLOOD SPECIMENOrdering Facility: [facility] Address: [address] [place] [address] Performed By: #### 5 7021-8 ####[facility] LABCLIA [id number] [address] LABCLIA [id number] [address] [place] MCHC (RBC) [Mass/Vol] 31.8 g/dL Normal 30.5-36.0 [facility] Comment on above: Order Comment: Speci men Type: BLOOD SPECIMENOrdering Facility: [facility] Address: [address] [place] [address] Performed By: #### 5 7021-8 ####[facility] LABCLIA [id number] [address] LABCLIA [id number] [address] [place] MCV (RBC) [Entitic vol] 109.2 fL High 80.0-100.0 [facility] Comment on above: Order Comment: Speci men Type: BLOOD SPECIMENOrdering Facility: [facility] Address: [address] [place], [place] [address] Performed By: #### 5 7021-8 ####[facility] LABCLIA [id number] [address] LABCLIA [id number] [place] [address] [place] Neutrophils (Bld) [#/Vol] 0.93 10*3/uL Low 1.45-7.50 [facility] Comment on above: Order Comment: Speci men Type: BLOOD SPECIMENOrdering Facility: [facility] Address: [address] [place] [address] Performed By: #### 5 7021-8 ####[facility] LABCLIA [id number] [address] LABCLIA [id number] [place] [address] [place] Neutrophils/100 WBC (Bld) 43.9 % Normal [facility] Comment on above: Order Comment: Speci men Type: BLOOD SPECIMENOrdering Facility: [facility] Address: [address] [place] [address] Performed By: #### 5 7021-8 ####[facility] LABCLIA [id number] [address] LABCLIA [id number] [place] [address] [place] Nucleated RBC/100 WBC (Bld) [Ratio] 0.0 /100 WBC Normal [facility] Comment on above: Order Comment: Speci men Type: BLOOD SPECIMENOrdering Facility: [facility] Address: [address] [place], [place] [address] Performed By: #### 5 7021-8 ####[facility] LABCLIA [id number] [address] LABCLIA [id number] [place] [address] [place] Ovalocytes LM Ql (Bld) Few Normal [facility] Comment on above: Order Comment: Speci men Type: BLOOD SPECIMENOrdering Facility: [facility] Address: [address] [place], [place] [address] Performed By: #### 5 7021-8 ####[facility] LABCLIA [id number] [address] LABCLIA [id number] [place] [address] [place] PLATELET ESTIMATE Decreased Normal [facility] Comment on above: Order Comment: Speci men Type: BLOOD SPECIMENOrdering Facility: [facility] Address: [address] [place] [address] Performed By: #### 5 7021-8 ####[facility] LABCLIA [id number] [address] LABCLIA [id number] [place] [address] [place] Platelet mean volume (Bld) [Entitic vol] 13.0 fL High 9.0-12.7 [facility] Comment on above: Order Comment: Speci men Type: BLOOD SPECIMENOrdering Facility: [facility] Address: [address] [place] [address] Performed By: #### 5 7021-8 ####[facility] LABCLIA [id number] [address] LABCLIA [id number] [place] [address] [place] Platelets (Bld) [#/Vol] 54 10*3/uL Low 150-400 [facility] Comment on above: Order Comment: Speci men Type: BLOOD SPECIMENOrdering Facility: [facility] Address: [address] [place] [address] Result Comment: Samp le checked for clot Performed By: #### 5 7021-8 ####[facility] LABCLIA [id number] [address] LABCLIA [id number] [place] [address] [place] Polychromasia LM Ql (Bld) Slight Normal [facility] Comment on above: Order Comment: Speci men Type: BLOOD SPECIMENOrdering Facility: [facility] Address: [address] [place], [place] [address] Performed By: #### 5 7021-8 ####[facility] LABCLIA [id number] [address] LABCLIA [id number] [place] [address] [place] RBC (Bld) [#/Vol] 1.96 10*6/uL Low 4.20-6.00 [facility] Comment on above: Order Comment: Speci men Type: BLOOD SPECIMENOrdering Facility: [facility] Address: [address] [place] [address] Performed By: #### 5 7021-8 ####[facility] LABCLIA [id number] [address] LABCLIA [id number] [place] [address] [place] RBC FRAGMENTS Few Abnormal None Seen [facility] Comment on above: Order Comment: Speci men Type: BLOOD SPECIMENOrdering Facility: [facility] Address: [address] [place], [place] [address] Performed By: #### 5 7021-8 ####[facility] LABCLIA [id number] [address] LABCLIA [id number] [place] [address] [place] RED CELL MORPH Reviewed: see result s of individual morphologies Normal [facility] Comment on above: Order Comment: Speci men Type: BLOOD SPECIMENOrdering Facility: [facility] Address: [address] [place] [address] Performed By: #### 5 7021-8 ####[facility] LABCLIA [id number] [place] [address] LABCLIA [id number] [place] [address] [place] Variant lymphocytes/100 WBC (Bld) 0.0 % Normal [facility] Comment on above: Order Comment: Speci men Type: BLOOD SPECIMENOrdering Facility: [facility] Address: [address] [place] [address] Performed By: #### 5 7021-8 ####[facility] LABCLIA [id number] [address] LABCLIA [id number] [place] [address] [place] WAM - ABS BASO 0.02 k/uL Normal <0.11 [facility] Comment on above: Order Comment: Speci men Type: BLOOD SPECIMENOrdering Facility: [facility] Address: [address] [place] [address] Performed By: #### 5 7021-8 ####[facility] LABCLIA [id number] [address] LABCLIA [id number] [place] [address] [place] WAM - ABS MONO 0.29 k/uL Normal <0.87 [facility] Comment on above: Order Comment: Speci men Type: BLOOD SPECIMENOrdering Facility: [facility] Address: [address] [place] [address] Performed By: #### 5 7021-8 ####[facility] LABCLIA [id number] [address] LABCLIA [id number] [place] [address] [place] WAM - MONO% 13.8 % Normal [facility] Comment on above: Order Comment: Speci men Type: BLOOD SPECIMENOrdering Facility: [facility] Address: [address] [place], [place] [address] Performed By: #### 5 7021-8 ####[facility] LABCLIA [id number] [place] [address] LABCLIA [id number] [place] [address] [place] WAM ABSOLUTE NRBC <0.01 Normal <0.01 [facility] Comment on above: Order Comment: Speci men Type: BLOOD SPECIMENOrdering Facility: [facility] Address: [address] [place], [place] [address] Result Comment: This result was previously suppressed from the chart. Performed By: #### 5 7021-8 ####[facility] LABCLIA [id number] [place] [address] LABCLIA [id number] [place] [address] [place] WBC (Bld) [#/Vol] 2.12 10*3/uL Low 3.70-11.00 [facility] Comment on above: Order Comment: Speci men Type: BLOOD SPECIMENOrdering Facility: [facility] Address: [address] [place], [place] [address] Performed By: #### 5 7021-8 ####[facility] LABCLIA [id number] [place] [address] LABCLIA [id number] [place] [address] [place] CNPNon 02-04-2022 CNPN Normal [facility] Comprehensive metabolic 2000 panelon 02-04-2022 Albumin [Mass/Vol] 3.7 g/dL Low 3.9-4.9 [facility] Comment on above: Order Comment: Speci men Type: BLOOD SPECIMENOrdering Facility: [facility] Address: [address] [place], [place] [address] Performed By: #### 2 532-0, ####[facility] LABCLIA [id number] [place] [address] ALP [Catalytic activity/Vol] 70 U/L Normal 38-113 [facility] Comment on above: Order Comment: Speci men Type: BLOOD SPECIMENOrdering Facility: [facility] Address: [address] [place] [address] Performed By: #### 2 532-0, ####[facility] LABCLIA [id number] [place] [address] ALT [Catalytic activity/Vol] 26 U/L Normal 10-54 [facility] Comment on above: Order Comment: Speci men Type: BLOOD SPECIMENOrdering Facility: [facility] Address: [address] [place] [address] Performed By: #### 2 532-0, ####[facility] LABCLIA [id number] [place] [address] Anion gap [Moles/Vol] 14 mmol/L Normal 9-18 [facility] Comment on above: Order Comment: Speci men Type: BLOOD SPECIMENOrdering Facility: [facility] Address: [address] [place] [address] Performed By: #### 2 532-0, ####[facility] LABCLIA [id number] [place] [address] AST [Catalytic activity/Vol] 14 U/L Normal 14-40 [facility] Comment on above: Order Comment: Speci men Type: BLOOD SPECIMENOrdering Facility: [facility] Address: [address] [place] [address] Performed By: #### 2 532-0, ####[facility] LABCLIA [id number] [place] [address] Bilirubin [Mass/Vol] 0.6 mg/dL Normal 0.2-1.3 [facility] Comment on above: Order Comment: Speci men Type: BLOOD SPECIMENOrdering Facility: [facility] Address: [address] [place], [place] [address] Performed By: #### 2 532-0, ####[facility] LABCLIA [id number] [place] [address] Calcium [Mass/Vol] 8.4 mg/dL Low 8.5-10.2 [facility] Comment on above: Order Comment: Speci men Type: BLOOD SPECIMENOrdering Facility: [facility] Address: [address] [place] [address] Performed By: #### 2 532-0, ####[facility] LABCLIA [id number] [place] [address] Chloride [Moles/Vol] 105 mmol/L Normal 97-105 [facility] Comment on above: Order Comment: Speci men Type: BLOOD SPECIMENOrdering Facility: [facility] Address: [address] [place] [address] Performed By: #### 2 532-0, ####[facility] LABCLIA [id number] [place] [address] CO2 [Moles/Vol] 24 mmol/L Normal 22-30 [facility] Comment on above: Order Comment: Speci men Type: BLOOD SPECIMENOrdering Facility: [facility] Address: [address] [place], [place] [address] Performed By: #### 2 532-0, ####[facility] LABCLIA [id number] [place] [address] Creatinine [Mass/Vol] 1.69 mg/dL High 0.73-1.22 [facility] Comment on above: Order Comment: Speci men Type: BLOOD SPECIMENOrdering Facility: [facility] Address: [address] [place], [place] [address] Performed By: #### 2 532-0, 62519-5 ####[facility] LABCLIA [id number] [place] [address] ESTIMATED GLOMERULAR FILTRATION RATE 40 mL/min/1.73m??? Low >=60 [facility] Comment on above: Order Comment: Davi avendaño Type: BLOOD SPECIMENOrdering Facility: [facility] Address: [address] [place] [address] Result Comment: Faye mated Glomerular Filtration Rate [...] actual GFR. Performed By: #### 2 532-0, 95648-2 ####[facility] LABCLIA [id number] [place] [address] Glucose [Mass/Vol] 279 mg/dL High 74-99 [facility] Comment on above: Order Comment: Davi avendaño Type: BLOOD SPECIMENOrdering Facility: [facility] Address: [address] [place] [address] Result Comment: The [place] Diabetes [employer] (ADA) provides guidance for cutoff [...] Standards of Medical Care in Diabetes 2016, [place] [employer]. Diabetes Care. 2016.39(Suppl 1). Performed By: #### 2 532-0, 58796-8 ####[facility] LABCLIA [id number] [place] [address] Potassium [Moles/Vol] 4.0 mmol/L Normal 3.7-5.1 [facility] Comment on above: Order Comment: Speci men Type: BLOOD SPECIMENOrdering Facility: [facility] Address: [address] [place] [address] Performed By: #### 2 532-0, ####[facility] LABCLIA [id number] [place] [address] Protein [Mass/Vol] 5.9 g/dL Low 6.3-8.0 [facility] Comment on above: Order Comment: Speci men Type: BLOOD SPECIMENOrdering Facility: [facility] Address: [address] [place] [address] Performed By: #### 2 532-0, ####[facility] LABIA [id number] [place] [address] Sodium [Moles/Vol] 143 mmol/L Normal 136-144 [facility] Comment on above: Order Comment: Speci men Type: BLOOD SPECIMENOrdering Facility: [facility] Address: [address] [place] [address] Performed By: #### 2 532-0, ####[facility] LABCLIA [id number] [place] [address] Urea nitrogen [Mass/Vol] 20 mg/dL Normal 9-24 [facility] Comment on above: Order Comment: Speci men Type: BLOOD SPECIMENOrdering Facility: [facility] Address: [address] [place] [address] Performed By: #### 2 532-0, 45424-5 ####[facility] LABCLIA [id number] [place] [address] HEMOGLOBIN AND HEMATOCRITon 02-04-2022 Hematocrit (Bld) [Volume fraction] 21.1 % Critically low 42.0-54.0 [facility] Comment on above: Performed By: #### T NS, PRBC #### [facility] [address] [place] [address] [address] Benito To Hemoglobin (Bld) [Mass/Vol] 6.8 g/dL Critically low 14.0-18.0 [facility] Comment on above: Performed By: #### T NS, PRBC #### [facility] [address] [place] [address] [address] Benito To LDH SerPl-cCncon 02-04-2022 LDH [Catalytic activity/Vol] 210 U/L Normal 135-225 [facility] Comment on above: Order Comment: Speci men Type: BLOOD SPECIMENOrdering Facility: [facility] Address: [address] [place] [address] Performed By: #### 2 532-0, 26655-2 ####[facility] LABCLIA [id number] [place] [address] TYPE AND SCREENon 02-04-2022 TYPE AND SCREEN Negative Normal [facility] Comment on above: Performed By: #### P RBC, TNS #### [facility] [address] [place] [address] [address] Benito To CBC W Auto Differential pane l (Bld)on 01-30-2022 Anisocytosis Ql (Bld) Present Normal [facility] Comment on above: Order Comment: Speci men Type: BLOOD SPECIMENOrdering Facility: [facility] Address: [address] [place] [address] Performed By: #### 5 7021-8 ####[facility] LABCLIA [id number] [address] LABCLIA [id number] [place] [address] [place] Basophils/100 WBC (Bld) 0.9 % Normal [facility] Comment on above: Order Comment: Speci men Type: BLOOD SPECIMENOrdering Facility: [facility] Address: [address] [place] [address] Performed By: #### 5 7021-8 ####[facility] LABCLIA [id number] [address] LABCLIA [id number] [place] [address] [place] Dacrocytes LM Ql (Bld) Few Normal [facility] Comment on above: Order Comment: Speci men Type: BLOOD SPECIMENOrdering Facility: [facility] Address: [address] [place], [place] [address] Performed By: #### 5 7021-8 ####[facility] LABCLIA [id number] [address] LABCLIA [id number] [place] [address] [place] Differential cell count method Nom (Bld) Manual Normal [facility] Comment on above: Order Comment: Speci men Type: BLOOD SPECIMENOrdering Facility: [facility] Address: [address] [place] [address] Performed By: #### 5 7021-8 ####[facility] LABCLIA [id number] [address] LABCLIA [id number] [place] [address] [place] Eosinophils (Bld) [#/Vol] 0.05 10*3/uL Normal <0.46 [facility] Comment on above: Order Comment: Speci men Type: BLOOD SPECIMENOrdering Facility: [facility] Address: [address] [place] [address] Performed By: #### 5 7021-8 ####[facility] LABCLIA [id number] [address] LABCLIA [id number] [place] [address] [place] Eosinophils/100 WBC (Bld) 1.8 % Normal [facility] Comment on above: Order Comment: Speci men Type: BLOOD SPECIMENOrdering Facility: [facility] Address: [address] [place] [address] Performed By: #### 5 7021-8 ####[facility] LABCLIA [id number] [address] LABCLIA [id number] [place] [address] [place] Erythrocyte distribution width (RBC) [Ratio] 23.6 % High 11.5-15.0 [facility] Comment on above: Order Comment: Speci men Type: BLOOD SPECIMENOrdering Facility: [facility] Address: [address] [place] [address] Performed By: #### 5 7021-8 ####[facility] LABCLIA [id number] [address] LABCLIA [id number] [place] [address] [place] Hematocrit (Bld) [Volume fraction] 23.5 % Low 39.0-51.0 [facility] Comment on above: Order Comment: Speci men Type: BLOOD SPECIMENOrdering Facility: [facility] Address: [address] [place], [place] [address] Performed By: #### 5 7021-8 ####[facility] LABCLIA [id number] [address] LABCLIA [id number] [place] [address] [place] Hemoglobin (Bld) [Mass/Vol] 7.4 g/dL Low 13.0-17.0 [facility] Comment on above: Order Comment: Speci men Type: BLOOD SPECIMENOrdering Facility: [facility] Address: [address] [place], [place] [address] Performed By: #### 5 7021-8 ####[facility] LABCLIA [id number] [address] LABCLIA [id number] [place] [address] [place] Lymphocytes (Bld) [#/Vol] 0.93 10*3/uL Low 1.00-4.00 [facility] Comment on above: Order Comment: Speci men Type: BLOOD SPECIMENOrdering Facility: [facility] Address: [address] [place] [address] Performed By: #### 5 7021-8 ####[facility] LABCLIA [id number] [address] LABCLIA [id number] [place] [address] [place] Lymphocytes/100 WBC (Bld) 36.3 % Normal [facility] Comment on above: Order Comment: Speci men Type: BLOOD SPECIMENOrdering Facility: [facility] Address: [address] [place], [place] [address] Performed By: #### 5 7021-8 ####[facility] LABCLIA [id number] [address] LABCLIA [id number] [place] [address] [place] MCH (RBC) [Entitic mass] 34.1 pg High 26.0-34.0 [facility] Comment on above: Order Comment: Speci men Type: BLOOD SPECIMENOrdering Facility: [facility] Address: [address] [place], [place] [address] Performed By: #### 5 7021-8 ####[facility] LABCLIA [id number] [address] LABCLIA [id number] [place] [address] [place] MCHC (RBC) [Mass/Vol] 31.5 g/dL Normal 30.5-36.0 [facility] Comment on above: Order Comment: Speci men Type: BLOOD SPECIMENOrdering Facility: [facility] Address: [address] [place] [address] Performed By: #### 5 7021-8 ####[facility] LABCLIA [id number] [address] LABCLIA [id number] [place] [address] [place] MCV (RBC) [Entitic vol] 108.3 fL High 80.0-100.0 [facility] Comment on above: Order Comment: Speci men Type: BLOOD SPECIMENOrdering Facility: [facility] Address: [address] [place] [address] Performed By: #### 5 7021-8 ####[facility] LABCLIA [id number] [address] LABCLIA [id number] [place] [address] [place] Neutrophils (Bld) [#/Vol] 1.15 10*3/uL Low 1.45-7.50 [facility] Comment on above: Order Comment: Speci men Type: BLOOD SPECIMENOrdering Facility: [facility] Address: [address] [place], [place] [address] Performed By: #### 5 7021-8 ####[facility] LABCLIA [id number] [address] LABCLIA [id number] [place] [address] [place] Neutrophils/100 WBC (Bld) 45.1 % Normal [facility] Comment on above: Order Comment: Speci men Type: BLOOD SPECIMENOrdering Facility: [facility] Address: [address] [place], [place] [address] Performed By: #### 5 7021-8 ####[facility] LABCLIA [id number] [place] [address] LABCLIA [id number] [place] [address] [place] Nucleated RBC/100 WBC (Bld) [Ratio] 0.0 /100 WBC Normal [facility] Comment on above: Order Comment: Speci men Type: BLOOD SPECIMENOrdering Facility: [facility] Address: [address] [place] [address] Performed By: #### 5 7021-8 ####[facility] LABCLIA [id number] [address] LABCLIA [id number] [place] [address] [place] Ovalocytes LM Ql (Bld) Few Normal [facility] Comment on above: Order Comment: Speci men Type: BLOOD SPECIMENOrdering Facility: [facility] Address: [address] [place] [address] Performed By: #### 5 7021-8 ####[facility] LABCLIA [id number] [address] LABCLIA [id number] [place] [address] [place] PLATELET ESTIMATE Decreased Normal [facility] Comment on above: Order Comment: Speci men Type: BLOOD SPECIMENOrdering Facility: [facility] Address: [address] [place] [address] Performed By: #### 5 7021-8 ####[facility] LABCLIA [id number] [address] LABCLIA [id number] [place] [address] [place] Platelet mean volume (Bld) [Entitic vol] 12.6 fL Normal 9.0-12.7 [facility] Comment on above: Order Comment: Speci men Type: BLOOD SPECIMENOrdering Facility: [facility] Address: [address] [place] [address] Performed By: #### 5 7021-8 ####[facility] LABCLIA [id number] [address] LABCLIA [id number] [place] [address] [place] Platelets (Bld) [#/Vol] 57 10*3/uL Low 150-400 [facility] Comment on above: Order Comment: Speci men Type: BLOOD SPECIMENOrdering Facility: [facility] Address: [address] [place] [address] Result Comment: Samp le checked for clot Performed By: #### 5 7021-8 ####[facility] LABCLIA [id number] [address] LABCLIA [id number] [place] [address] [place] Platelets agranular LM Ql (Bld) Occasional Normal [facility] Comment on above: Order Comment: Speci men Type: BLOOD SPECIMENOrdering Facility: [facility] Address: [address] [place] [address] Performed By: #### 5 7021-8 ####[facility] LABCLIA [id number] [address] LABCLIA [id number] [place] [address] [place] Polychromasia LM Ql (Bld) Slight Normal [facility] Comment on above: Order Comment: Speci men Type: BLOOD SPECIMENOrdering Facility: [facility] Address: [address] [place] [address] Performed By: #### 5 7021-8 ####[facility] LABCLIA [id number] QUARRY LAKES [address] LABCLIA [id number] [place] [address] [place] RBC (Bld) [#/Vol] 2.17 10*6/uL Low 4.20-6.00 [facility] Comment on above: Order Comment: Speci men Type: BLOOD SPECIMENOrdering Facility: [facility] Address: [address] [place] [address] Performed By: #### 5 7021-8 ####[facility] LABCLIA [id number] [address] LABCLIA [id number] [place] [address] [place] RBC FRAGMENTS Few Abnormal None Seen [facility] Comment on above: Order Comment: Speci men Type: BLOOD SPECIMENOrdering Facility: [facility] Address: [address] [place] [address] Performed By: #### 5 7021-8 ####[facility] LABCLIA [id number] [address] LABCLIA [id number] [place] [address] [place] RED CELL MORPH Reviewed: see result s of individual morphologies Normal [facility] Comment on above: Order Comment: Speci men Type: BLOOD SPECIMENOrdering Facility: [facility] Address: [address] [place] [address] Performed By: #### 5 7021-8 ####[facility] LABCLIA [id number] [address] LABCLIA [id number] [place] [address] [place] Variant lymphocytes/100 WBC (Bld) 0.0 % Normal [facility] Comment on above: Order Comment: Speci men Type: BLOOD SPECIMENOrdering Facility: [facility] Address: [address] [place] [address] Performed By: #### 5 7021-8 ####[facility] LABCLIA [id number] [address] LABCLIA [id number] [place] [address] [place] WAM - ABS BASO 0.02 k/uL Normal <0.11 [facility] Comment on above: Order Comment: Speci men Type: BLOOD SPECIMENOrdering Facility: [facility] Address: [address] [place], [place] [address] Performed By: #### 5 7021-8 ####[facility] LABCLIA [id number] [address] LABCLIA [id number] [place] [address] [place] WAM - ABS MONO 0.41 k/uL Normal <0.87 [facility] Comment on above: Order Comment: Speci men Type: BLOOD SPECIMENOrdering Facility: [facility] Address: [address] [place] [address] Performed By: #### 5 7021-8 ####[facility] LABCLIA [id number] [address] LABCLIA [id number] [place] [address] [place] WAM - MONO% 15.9 % Normal [facility] Comment on above: Order Comment: Speci men Type: BLOOD SPECIMENOrdering Facility: [facility] Address: [address] [place] [address] Performed By: #### 5 7021-8 ####[facility] LABCLIA [id number] [address] LABCLIA [id number] [place] [address] [place] WAM ABSOLUTE NRBC <0.01 Normal <0.01 [facility] Comment on above: Order Comment: Speci men Type: BLOOD SPECIMENOrdering Facility: [facility] Address: [address] [place], [place] [address] Result Comment: This result was previously suppressed from the chart. Performed By: #### 5 7021-8 ####[facility] LABCLIA [id number] [place] [address] LABCLIA [id number] [place] [address] [place] WBC (Bld) [#/Vol] 2.55 10*3/uL Low 3.70-11.00 [facility] Comment on above: Order Comment: Speci men Type: BLOOD SPECIMENOrdering Facility: [facility] Address: [address] [place], [place] [address] Performed By: #### 5 7021-8 ####[facility] LABCLIA [id number] [place], [place] [address] LABCLIA [id number] [place] [address] [place] Comprehensive metabolic 2000 panelon 01-30-2022 Albumin [Mass/Vol] 3.7 g/dL Low 3.9-4.9 [facility] Comment on above: Order Comment: Speci men Type: BLOOD SPECIMENOrdering Facility: [facility] Address: [address] [place], [place] [address] Performed By: #### 2 4323-8, 2532-0 ####[facility] LABCLIA [id number] [place] [id number] ALP [Catalytic activity/Vol] 66 U/L Normal 38-113 [facility] Comment on above: Order Comment: Speci men Type: BLOOD SPECIMENOrdering Facility: [facility] Address: [address] [place], [place] [address] Performed By: #### 2 4323-8, 2532-0 ####[facility] LABCLIA [id number] [place] [address] ALT [Catalytic activity/Vol] 30 U/L Normal 10-54 [facility] Comment on above: Order Comment: Speci men Type: BLOOD SPECIMENOrdering Facility: [facility] Address: [address] [place] [address] Performed By: #### 2 432-8, 2531-0 ####[facility] LABCLIA [id number] [place] [address] Anion gap [Moles/Vol] 8 mmol/L Low 9-18 [facility] Comment on above: Order Comment: Speci men Type: BLOOD SPECIMENOrdering Facility: [facility] Address: [address] [place] [address] Performed By: #### 2 4328, 2531-0 ####[facility] LABCLIA [id number] [place] [address] AST [Catalytic activity/Vol] 17 U/L Normal 14-40 [facility] Comment on above: Order Comment: Speci men Type: BLOOD SPECIMENOrdering Facility: [facility] Address: [address] [place] [address] Performed By: #### 2 4328, 2531-0 ####[facility] LABCLIA [id number] [place] [address] Bilirubin [Mass/Vol] 0.6 mg/dL Normal 0.2-1.3 [facility] Comment on above: Order Comment: Speci men Type: BLOOD SPECIMENOrdering Facility: [facility] Address: [address] [place] [address] Performed By: #### 2 4323-8, 253-0 ####[facility] LABCLIA [id number] [place] [address] Calcium [Mass/Vol] 8.9 mg/dL Normal 8.5-10.2 [facility] Comment on above: Order Comment: Speci men Type: BLOOD SPECIMENOrdering Facility: [facility] Address: [address] [place], [place] [address] Performed By: #### 2 4323-8, 2532-0 ####[facility] LABCLIA [id number] [place] [address] Chloride [Moles/Vol] 106 mmol/L High 97-105 [facility] Comment on above: Order Comment: Speci men Type: BLOOD SPECIMENOrdering Facility: [facility] Address: [address] [place] [address] Performed By: #### 2 4323-8, 2531-0 ####[facility] LABCLIA [id number] [place] [address] CO2 [Moles/Vol] 28 mmol/L Normal 22-30 [facility] Comment on above: Order Comment: Speci men Type: BLOOD SPECIMENOrdering Facility: [facility] Address: [address] [place], [place] [address] Performed By: #### 2 4323-8, 2531-0 ####[facility] LABCLIA [id number] [place] [address] Creatinine [Mass/Vol] 1.72 mg/dL High 0.73-1.22 [facility] Comment on above: Order Comment: Speci men Type: BLOOD SPECIMENOrdering Facility: [facility] Address: [address] [place] [address] Performed By: #### 2 4323-8, 253-0 ####[facility] LABCLIA [id number] [place] [address] ESTIMATED GLOMERULAR FILTRATION RATE 39 mL/min/1.73m??? Low >=60 [facility] Comment on above: Order Comment: Speci men Type: BLOOD SPECIMENOrdering Facility: [facility] Address: [address] [place], [place] [address] Result Comment: Faye mated Glomerular Filtration Rate [...] GFR. Performed By: #### 2 4323-8, 2531-0 ####[facility] LABCLIA [id number] [place] [address] Glucose [Mass/Vol] 246 mg/dL High 74-99 [facility] Comment on above: Order Comment: Davi avendaño Type: BLOOD SPECIMENOrdering Facility: [facility] Address: [address] [place], [place] [address] Result Comment: The [place] [employer] (ADA) provides guidance for cutoff [...] Standards of Medical Care in Diabetes 2016, [place] [employer]. Diabetes Care. 2016.39(Suppl 1). Performed By: #### 2 4328, 0 ####[facility] LABIA [id number] [place] [address] Potassium [Moles/Vol] 4.3 mmol/L Normal 3.7-5.1 [facility] Comment on above: Order Comment: Davi avendaño Type: BLOOD SPECIMENOrdering Facility: [facility] Address: [address] [place] [address] Performed By: #### 2 4323-8, 2531-0 ####[facility] LABCLIA [id number] [place] [address] Protein [Mass/Vol] 5.9 g/dL Low 6.3-8.0 [facility] Comment on above: Order Comment: Speci men Type: BLOOD SPECIMENOrdering Facility: [facility] Address: [address] [place] [address] Performed By: #### 2 4323-8, 2532-0 ####[facility] LABIA [id number] [place] [address] Sodium [Moles/Vol] 142 mmol/L Normal 136-144 [facility] Comment on above: Order Comment: Speci men Type: BLOOD SPECIMENOrdering Facility: [facility] Address: [address] [place] [address] Performed By: #### 2 4323-8, 2532-0 ####[facility] LABIA [id number] [place] [address] Urea nitrogen [Mass/Vol] 31 mg/dL High 9-24 [facility] Comment on above: Order Comment: Speci men Type: BLOOD SPECIMENOrdering Facility: [facility] Address: [address] [place] [address] Performed By: #### 2 4323-8, 2532-0 ####[facility] LABIA [id number] [place] [address] LDH SerPl-cCncon 01-30-2022 LDH [Catalytic activity/Vol] 221 U/L Normal 135-225 [facility] Comment on above: Order Comment: Speci men Type: BLOOD SPECIMENOrdering Facility: [facility] Address: [address] [place] [address] Performed By: #### 2 4323-8, 2532-0 ####[facility] LABIA [id number] [place] [address] PRBC LEUKOREDUCEDon 01-25-20 PRBC LEUKOREDUCED Cross Match Result Compatible Unit Blood Type A Neg Unit Number [id number] Status Information Transfused Product ID Red Blood Cells Product Code [id number] Normal [facility] Comment on above: Performed By: #### T NS, PRBC #### [facility] [address] [place] [address] [address] Benito To CBC W Auto Differential pane l (Bld)on 01-21-2022 Anisocytosis Ql (Bld) Present Normal [facility] Comment on above: Order Comment: Speci men Type: BLOOD SPECIMENOrdering Facility: [facility] Address: [address] [place] [address] Performed By: #### 5 7021-8 ####[facility] LABCLIA [id number] [address] LABCLIA [id number] [place] [address] Basophils/100 WBC (Bld) 0.0 % Normal [facility] Comment on above: Order Comment: Speci men Type: BLOOD SPECIMENOrdering Facility: [facility] Address: [address] [place] [address] Performed By: #### 5 7021-8 ####[facility] LABCLIA [id number] [address] LABCLIA [id number] [place] [address] Eosinophils (Bld) [#/Vol] 0.00 10*3/uL Normal <0.46 [facility] Comment on above: Order Comment: Speci men Type: BLOOD SPECIMENOrdering Facility: [facility] Address: [address] [place], [place] [address] Performed By: #### 5 7021-8 ####[facility] LABCLIA [id number] [address] LABCLIA [id number] [place] [address] Eosinophils/100 WBC (Bld) 0.0 % Normal [facility] Comment on above: Order Comment: Speci men Type: BLOOD SPECIMENOrdering Facility: [facility] Address: [address] [place] [address] Performed By: #### 5 7021-8 ####[facility] LABCLIA [id number] [address] LABCLIA [id number] [place] [address] Erythrocyte distribution width (RBC) [Ratio] 24.2 % High 11.5-15.0 [facility] Comment on above: Order Comment: Speci men Type: BLOOD SPECIMENOrdering Facility: [facility] Address: [address] [place] [address] Performed By: #### 5 7021-8 ####[facility] LABCLIA [id number] [address] LABCLIA [id number] [place] [address] Hematocrit (Bld) [Volume fraction] 28.3 % Low 39.0-51.0 [facility] Comment on above: Order Comment: Speci men Type: BLOOD SPECIMENOrdering Facility: [facility] Address: [address] [place], [place] [address] Performed By: #### 5 7021-8 ####[facility] LABCLIA [id number] [address] LABIA [id number] [place] [address] Hemoglobin (Bld) [Mass/Vol] 9.0 g/dL Low 13.0-17.0 [facility] Comment on above: Order Comment: Speci men Type: BLOOD SPECIMENOrdering Facility: [facility] Address: [address] [place], [place] [address] Performed By: #### 5 7021-8 ####[facility] LABCLIA [id number] [address] LABCLIA [id number] [place] [address] Lymphocytes (Bld) [#/Vol] 0.73 10*3/uL Low 1.00-4.00 [facility] Comment on above: Order Comment: Speci men Type: BLOOD SPECIMENOrdering Facility: [facility] Address: [address] [place] [address] Performed By: #### 5 7021-8 ####[facility] LABCLIA [id number] [address] LABCLIA [id number] [place] [address] Lymphocytes/100 WBC (Bld) 22.0 % Normal [facility] Comment on above: Order Comment: Speci men Type: BLOOD SPECIMENOrdering Facility: [facility] Address: [address] [place] [address] Performed By: #### 5 7021-8 ####[facility] LABCLIA [id number] [address] LABCLIA [id number] [place] [address] MCH (RBC) [Entitic mass] 33.7 pg Normal 26.0-34.0 [facility] Comment on above: Order Comment: Speci men Type: BLOOD SPECIMENOrdering Facility: [facility] Address: [address] [place] [address] Performed By: #### 5 7021-8 ####[facility] LABCLIA [id number] [address] LABCLIA [id number] [place] [address] MCHC (RBC) [Mass/Vol] 31.8 g/dL Normal 30.5-36.0 [facility] Comment on above: Order Comment: Speci men Type: BLOOD SPECIMENOrdering Facility: [facility] Address: [address] [place] [address] Performed By: #### 5 7021-8 ####[facility] LABCLIA [id number] [address] LABCLIA [id number] [place] [address] MCV (RBC) [Entitic vol] 106.0 fL High 80.0-100.0 [facility] Comment on above: Order Comment: Speci men Type: BLOOD SPECIMENOrdering Facility: [facility] Address: [address] [place] [address] Performed By: #### 5 7021-8 ####[facility] LABCLIA [id number] [address] LABCLIA [id number] [place] [address] Neutrophils (Bld) [#/Vol] 2.21 10*3/uL Normal 1.45-7.50 [facility] Comment on above: Order Comment: Speci men Type: BLOOD SPECIMENOrdering Facility: [facility] Address: [address] [place], [place] [address] Performed By: #### 5 7021-8 ####[facility] LABCLIA [id number] [address] LABCLIA [id number] [place] [address] Neutrophils/100 WBC (Bld) 67.0 % Normal [facility] Comment on above: Order Comment: Speci men Type: BLOOD SPECIMENOrdering Facility: [facility] Address: [address] [place], [place] [address] Performed By: #### 5 7021-8 ####[facility] LABCLIA [id number] [place] [id number] [facility] LABCLIA [id number] [place] [address] Nucleated RBC/100 WBC (Bld) [Ratio] 0.0 /100 WBC Normal [facility] Comment on above: Order Comment: Speci men Type: BLOOD SPECIMENOrdering Facility: [facility] Address: [address] [place] [address] Performed By: #### 5 7021-8 ####[facility] LABCLIA [id number] [address] LABCLIA [id number] [place] [address] Ovalocytes LM Ql (Bld) Few Normal [facility] Comment on above: Order Comment: Speci men Type: BLOOD SPECIMENOrdering Facility: [facility] Address: [address] [place] [address] Performed By: #### 5 7021-8 ####[facility] LABCLIA [id number] [address] LABCLIA [id number] [place] [address] PLATELET ESTIMATE Adequate Normal [facility] Comment on above: Order Comment: Speci men Type: BLOOD SPECIMENOrdering Facility: [facility] Address: [address] [place], [place] [address] Performed By: #### 5 7021-8 ####[facility] LABCLIA [id number] [place] [id number] [facility] LABCLIA [id number] [place] [address] Platelet mean volume (Bld) [Entitic vol] Normal [facility] Comment on above: Order Comment: Speci men Type: BLOOD SPECIMENOrdering Facility: [facility] Address: [address] [place] [address] Result Comment: Unab le to Report. Performed By: #### 5 7021-8 ####[facility] LABCLIA [id number] [address] LABCLIA [id number] [place] [address] Platelets (Bld) [#/Vol] 170 10*3/uL Normal 150-400 [facility] Comment on above: Order Comment: Speci men Type: BLOOD SPECIMENOrdering Facility: [facility] Address: [address] [place] [address] Result Comment: Samp le checked for clot Performed By: #### 5 7021-8 ####[facility] LABCLIA [id number] [address] LABCLIA [id number] [place] [address] Polychromasia LM Ql (Bld) Slight Normal [facility] Comment on above: Order Comment: Speci men Type: BLOOD SPECIMENOrdering Facility: [facility] Address: [address] [place] [address] Performed By: #### 5 7021-8 ####[facility] LABCLIA [id number] [address] LABCLIA [id number] [place] [address] RBC (Bld) [#/Vol] 2.67 10*6/uL Low 4.20-6.00 [facility] Comment on above: Order Comment: Speci men Type: BLOOD SPECIMENOrdering Facility: [facility] Address: [address] [place] [address] Performed By: #### 5 7021-8 ####[facility] LABCLIA [id number] [place] [id number] [facility] LABCLIA [id number] [place] [address] RBC FRAGMENTS Few Abnormal None Seen [facility] Comment on above: Order Comment: Speci men Type: BLOOD SPECIMENOrdering Facility: [facility] Address: [address] [place] [address] Performed By: #### 5 7021-8 ####[facility] LABCLIA [id number] [address] LABCLIA [id number] [place] [address] RED CELL MORPH Reviewed: see result s of individual morphologies Normal [facility] Comment on above: Order Comment: Speci men Type: BLOOD SPECIMENOrdering Facility: [facility] Address: [address] [place] [address] Performed By: #### 5 7021-8 ####[facility] LABCLIA [id number] [address] LABCLIA [id number] [place] [address] WAM - ABS BASO 0.00 k/uL Normal <0.11 [facility] Comment on above: Order Comment: Speci men Type: BLOOD SPECIMENOrdering Facility: [facility] Address: [address] [place] [address] Performed By: #### 5 7021-8 ####[facility] LABCLIA [id number] [address] LABCLIA [id number] [place] [address] WAM - ABS MONO 0.30 k/uL Normal <0.87 [facility] Comment on above: Order Comment: Speci men Type: BLOOD SPECIMENOrdering Facility: [facility] Address: [address] [place], [place] [address] Performed By: #### 5 7021-8 ####[facility] LABCLIA [id number] [address] LABCLIA [id number] [place] [address] WAM - MONO% 9.0 % Normal [facility] Comment on above: Order Comment: Speci men Type: BLOOD SPECIMENOrdering Facility: [facility] Address: [address] [place], [place] [address] Performed By: #### 5 7021-8 ####[facility] LABCLIA [id number] [address] LABCLIA [id number] [place] [address] WAM ABSOLUTE NRBC <0.01 Normal <0.01 [facility] Comment on above: Order Comment: Speci men Type: BLOOD SPECIMENOrdering Facility: [facility] Address: [address] [place] [address] Performed By: #### 5 7021-8 ####[facility] LABCLIA [id number] [address] LABCLIA [id number] [place] [id number] WBC (Bld) [#/Vol] 3.30 10*3/uL Low 3.70-11.00 [facility] Comment on above: Order Comment: Speci men Type: BLOOD SPECIMENOrdering Facility: [facility] Address: [address] [place] [address] Result Comment: Resu lts checked and verified. No clot detected Performed By: #### 5 7021-8 ####[facility] LABCLIA [id number] LABCLIA [id number] [place] [address] WBC Left Shift Ql (Bld) Present Normal [facility] Comment on above: Order Comment: Speci men Type: BLOOD SPECIMENOrdering Facility: [facility] Address: [address] [place] [address] Performed By: #### 5 7021-8 ####[facility] LABCLIA [id number] [address] LABCLIA [id number] [place] [address] Comprehensive metabolic 2000 panelon 01-21-2022 Albumin [Mass/Vol] 3.9 g/dL Normal 3.9-4.9 [facility] Comment on above: Order Comment: Speci men Type: BLOOD SPECIMENOrdering Facility: [facility] Address: [address] [place] [address] Performed By: #### 2 4323-8 ####[facility] LABCLIA [id number] [place] [address] ALP [Catalytic activity/Vol] 62 U/L Normal 38-113 [facility] Comment on above: Order Comment: Speci men Type: BLOOD SPECIMENOrdering Facility: [facility] Address: [address] [place], [place] [address] Performed By: #### 2 4323-8 ####[facility] LABCLIA [id number] [place] [address] ALT [Catalytic activity/Vol] 40 U/L Normal 10-54 [facility] Comment on above: Order Comment: Speci men Type: BLOOD SPECIMENOrdering Facility: [facility] Address: [address] [place] [address] Performed By: #### 2 4323-8 ####[facility] LABCLIA [id number] [place] [address] Anion gap [Moles/Vol] 10 mmol/L Normal 9-18 [facility] Comment on above: Order Comment: Speci men Type: BLOOD SPECIMENOrdering Facility: [facility] Address: [address] [place] [address] Performed By: #### 2 4323-8 ####[facility] LABCLIA [id number] [place] [address] AST [Catalytic activity/Vol] 19 U/L Normal 14-40 [facility] Comment on above: Order Comment: Speci men Type: BLOOD SPECIMENOrdering Facility: [facility] Address: [address] [place] [address] Performed By: #### 2 4323-8 ####[facility] LABCLIA [id number] [place] [address] Bilirubin [Mass/Vol] 0.8 mg/dL Normal 0.2-1.3 [facility] Comment on above: Order Comment: Speci men Type: BLOOD SPECIMENOrdering Facility: [facility] Address: [address] [place] [address] Performed By: #### 2 4323-8 ####[facility] LABCLIA [id number] [place] [address] Calcium [Mass/Vol] 8.8 mg/dL Normal 8.5-10.2 [facility] Comment on above: Order Comment: Speci men Type: BLOOD SPECIMENOrdering Facility: [facility] Address: [address] [place] [address] Performed By: #### 2 4323-8 ####[facility] LABCLIA [id number] [place] [address] Chloride [Moles/Vol] 101 mmol/L Normal 97-105 [facility] Comment on above: Order Comment: Speci men Type: BLOOD SPECIMENOrdering Facility: [facility] Address: [address] [place] [address] Performed By: #### 2 4323-8 ####[facility] LABCLIA [id number] [place] [address] CO2 [Moles/Vol] 31 mmol/L High 22-30 [facility] Comment on above: Order Comment: Speci men Type: BLOOD SPECIMENOrdering Facility: [facility] Address: [address] [place] [address] Performed By: #### 2 4323-8 ####[facility] LABCLIA [id number] [place] [address] Creatinine [Mass/Vol] 1.95 mg/dL High 0.73-1.22 [facility] Comment on above: Order Comment: Speci men Type: BLOOD SPECIMENOrdering Facility: [facility] Address: [address] [place] [address] Performed By: #### 2 4323-8 ####[facility] LABCLIA [id number] [place] [address] ESTIMATED GLOMERULAR FILTRATION RATE 34 mL/min/1.73m??? Low >=60 [facility] Comment on above: Order Comment: Speci men Type: BLOOD SPECIMENOrdering Facility: [facility] Address: [address] [place] [address] Result Comment: Faye mated Glomerular Filtration Rate [...] actual GFR. Performed By: #### 2 4323-8 ####[facility] LABCLIA [id number] [place] [address] Glucose [Mass/Vol] 231 mg/dL High 74-99 [facility] Comment on above: Order Comment: Speci men Type: BLOOD SPECIMENOrdering Facility: [facility] Address: [address] [place] [address] Result Comment: The [place] Diabetes Association (ADA) provides guidance for cutoff [...] Standards of Medical Care in Diabetes 2016, [place] [employer]. Diabetes Care. 2016.39(Suppl 1). Performed By: #### 2 4323-8 ####[facility] LABCLIA [id number] [place] [address] Potassium [Moles/Vol] 3.6 mmol/L Low 3.7-5.1 [facility] Comment on above: Order Comment: Speci men Type: BLOOD SPECIMENOrdering Facility: [facility] Address: [address] [place] [address] Performed By: #### 2 4323-8 ####[facility] LABCLIA [id number] [place] [address] Protein [Mass/Vol] 6.1 g/dL Low 6.3-8.0 [facility] Comment on above: Order Comment: Speci men Type: BLOOD SPECIMENOrdering Facility: [facility] Address: [address] [place] [address] Performed By: #### 2 4323-8 ####[facility] LABCLIA [id number] [place] [address] Sodium [Moles/Vol] 142 mmol/L Normal 136-144 [facility] Comment on above: Order Comment: Speci men Type: BLOOD SPECIMENOrdering Facility: [facility] Address: [address] [address] Performed By: #### 2 4323-8 ####[facility] LABCLIA [id number] [place] [address] Urea nitrogen [Mass/Vol] 39 mg/dL High 9-24 [facility] Comment on above: Order Comment: Speci men Type: BLOOD SPECIMENOrdering Facility: [facility] Address: [address] [place] [address] Performed By: #### 2 4323-8 ####[facility] LABCLIA [id number] [place] [address] Albumin [Mass/Vol] 3.9 g/dL 3.9 - 4.9 g/dL [facility] ALP [Catalytic activity/Vol] 62 U/L 38 - 113 U/L [facility] ALT [Catalytic activity/Vol] 40 U/L 10 - 54 U/L [facility] Anion gap [Moles/Vol] 10 mmol/L 9 - 18 mmol/L [facility] AST [Catalytic activity/Vol] 19 U/L 14 - 40 U/L [facility] Bilirubin [Mass/Vol] 0.8 mg/dL 0.2 - 1.3 mg/dL [facility] Calcium [Mass/Vol] 8.8 mg/dL 8.5 - 10.2 mg/dL [facility] Chloride [Moles/Vol] 101 mmol/L 97 - 105 mmol/L [facility] CO2 [Moles/Vol] 31 mmol/L High 22 - 30 mmol/L [facility] Creatinine [Mass/Vol] 1.95 mg/dL High 0.73 - 1.22 mg/dL [facility] Estimated Glomerular Filtration Rate 34 mL/min/1.73m Low >=60 mL/min/1.73m [facility] Glucose [Mass/Vol] 231 mg/dL High 74 - 99 mg/dL [facility] Potassium [Moles/Vol] 3.6 mmol/L Low 3.7 - 5.1 mmol/L [facility] Protein [Mass/Vol] 6.1 g/dL Low 6.3 - 8.0 g/dL [facility] Sodium [Moles/Vol] 142 mmol/L 136 - 144 mmol/L [facility] Urea nitrogen [Mass/Vol] 39 mg/dL High 9 - 24 mg/dL [facility] metabolic 2000 panelon 01-18-2021 Albumin [Mass/Vol] 4.1 g/dL Normal 3.9-4.9 [facility] Comment on above: Order Comment: Speci men Type: BLOOD SPECIMENOrdering Facility: [facility] Address: [address] [place] [address] Performed By: #### 2 4323-8 ####[facility] LABCLIA [id number] [place] [address] ALP [Catalytic activity/Vol] 62 U/L Normal 38-113 [facility] Comment on above: Order Comment: Speci men Type: BLOOD SPECIMENOrdering Facility: [facility] Address: [address] [place] [address] Performed By: #### 2 4323-8 ####[facility] LABCLIA [id number] [place] [address] ALT [Catalytic activity/Vol] 24 U/L Normal 10-54 [facility] Comment on above: Order Comment: Speci men Type: BLOOD SPECIMENOrdering Facility: [facility] Address: [address] [place] [address] Performed By: #### 2 4323-8 ####[facility] LABCLIA [id number] [place] [address] Anion gap [Moles/Vol] 10 mmol/L Normal 9-18 [facility] Comment on above: Order Comment: Speci men Type: BLOOD SPECIMENOrdering Facility: [facility] Address: [address] [place] [address] Performed By: #### 2 4323-8 ####[facility] LABIA [id number] [place] [address] AST [Catalytic activity/Vol] 12 U/L Low 14-40 [facility] Comment on above: Order Comment: Speci men Type: BLOOD SPECIMENOrdering Facility: [facility] Address: [address] [address] Performed By: #### 2 4323-8 ####[facility] LABCLIA [id number] [place] [address] Bilirubin [Mass/Vol] 0.6 mg/dL Normal 0.2-1.3 [facility] Comment on above: Order Comment: Speci men Type: BLOOD SPECIMENOrdering Facility: [facility] Address: [address] [place] [address] Performed By: #### 2 4323-8 ####[facility] LABCLIA [id number] [place] [address] Calcium [Mass/Vol] 9.4 mg/dL Normal 8.5-10.2 [facility] Comment on above: Order Comment: Speci men Type: BLOOD SPECIMENOrdering Facility: [facility] Address: [address] [place] [address] Performed By: #### 2 4323-8 ####[facility] LABCLIA [id number] [place] [address] Chloride [Moles/Vol] 103 mmol/L Normal 97-105 [facility] Comment on above: Order Comment: Speci men Type: BLOOD SPECIMENOrdering Facility: [facility] Address: [address] [place] [address] Performed By: #### 2 4323-8 ####[facility] LABCLIA [id number] [place] [address] CO2 [Moles/Vol] 30 mmol/L Normal 22-30 [facility] Comment on above: Order Comment: Speci men Type: BLOOD SPECIMENOrdering Facility: [facility] Address: [address] [place] [address] Performed By: #### 2 4323-8 ####[facility] LABCLIA [id number] [place] [address] Creatinine [Mass/Vol] 2.14 mg/dL High 0.73-1.22 [facility] Comment on above: Order Comment: Davi avendaño Type: BLOOD SPECIMENOrdering Facility: [facility] Address: [address] [address] Performed By: #### 2 4323-8 ####[facility] LABCLIA [id number] [place] [address] ESTIMATED GLOMERULAR FILTRATION RATE 30 mL/min/1.73m??? Low >=60 [facility] Comment on above: Order Comment: Davi avendaño Type: BLOOD SPECIMENOrdering Facility: [facility] Address: [address] [place], [place] [address] Result Comment: Faye mated Glomerular Filtration Rate [...] actual GFR. Performed By: #### 2 4323-8 ####[facility] LABCLIA [id number] [place] [address] Glucose [Mass/Vol] 182 mg/dL High 74-99 [facility] Comment on above: Order Comment: Davi avnedaño Type: BLOOD SPECIMENOrdering Facility: [facility] Address: [address] [place] [address] Result Comment: The [place] Diabetes [employer] (ADA) provides guidance for cutoff [...] Standards of Medical Care in Diabetes 2016, [place] [employer]. Diabetes Care. 2016.39(Suppl 1). Performed By: #### 2 4323-8 ####[facility] LABCLIA [id number] [place] [address] Potassium [Moles/Vol] 3.8 mmol/L Normal 3.7-5.1 [facility] Comment on above: Order Comment: Speci men Type: BLOOD SPECIMENOrdering Facility: [facility] Address: [address] [place] [address] Performed By: #### 2 4323-8 ####[facility] LABCLIA [id number] [place] [address] Protein [Mass/Vol] 6.4 g/dL Normal 6.3-8.0 [facility] Comment on above: Order Comment: Speci men Type: BLOOD SPECIMENOrdering Facility: [facility] Address: [address] [place] [address] Performed By: #### 2 4323-8 ####[facility] LABCLIA [id number] [place] [address] Sodium [Moles/Vol] 143 mmol/L Normal 136-144 [facility] Comment on above: Order Comment: Speci men Type: BLOOD SPECIMENOrdering Facility: [facility] Address: [address] [place] [address] Performed By: #### 2 4323-8 ####[facility] LABCLIA [id number] [place] [address] Urea nitrogen [Mass/Vol] 45 mg/dL High 9-24 [facility] Comment on above: Order Comment: Speci men Type: BLOOD SPECIMENOrdering Facility: [facility] Address: [address] [place] [address] Performed By: #### 2 4323-8 ####[facility] LABCLIA [id number] [place] [address] Albumin [Mass/Vol] 4.1 g/dL 3.9 - 4.9 g/dL [facility] ALP [Catalytic activity/Vol] 62 U/L 38 - 113 U/L [facility] ALT [Catalytic activity/Vol] 24 U/L 10 - 54 U/L [facility] Anion gap [Moles/Vol] 10 mmol/L 9 - 18 mmol/L [facility] AST [Catalytic activity/Vol] 12 U/L Low 14 - 40 U/L [facility] Bilirubin [Mass/Vol] 0.6 mg/dL 0.2 - 1.3 mg/dL [facility] Calcium [Mass/Vol] 9.4 mg/dL 8.5 - 10.2 mg/dL [facility] Chloride [Moles/Vol] 103 mmol/L 97 - 105 mmol/L [facility] CO2 [Moles/Vol] 30 mmol/L 22 - 30 mmol/L [facility] Creatinine [Mass/Vol] 2.14 mg/dL High 0.73 - 1.22 mg/dL [facility] Estimated Glomerular Filtration Rate 30 mL/min/1.73m Low >=60 mL/min/1.73m [facility] Glucose [Mass/Vol] 182 mg/dL High 74 - 99 mg/dL [facility] Potassium [Moles/Vol] 3.8 mmol/L 3.7 - 5.1 mmol/L [facility] Protein [Mass/Vol] 6.4 g/dL 6.3 - 8.0 g/dL [facility] Sodium [Moles/Vol] 143 mmol/L 136 - 144 mmol/L [facility] Urea nitrogen [Mass/Vol] 45 mg/dL High 9 - 24 mg/dL [facility] HEMOGLOBIN AND HEMATOCRITon 01-15-2022 Hematocrit (Bld) [Volume fraction] 24.9 % Critically low 42.0-54.0 [facility] Comment on above: Performed By: #### T NS, PRBC #### [facility] [address] [address] [address] Benito To Hemoglobin (Bld) [Mass/Vol] 7.7 g/dL Critically low 14.0-18.0 [facility] Comment on above: Performed By: #### T NS, PRBC #### [facility] [address] [address] [address] Benito To TYPE AND SCREENon 01-15-2022 TYPE AND SCREEN Negative Normal [facility] Comment on above: Performed By: #### T NS, PRBC #### [facility] [address] [place] [address] Dr. Benito To CBC W Auto Differential pane l (Bld)on 01-14-2022 Anisocytosis Ql (Bld) Present Normal [facility] Comment on above: Order Comment: Speci men Type: BLOOD SPECIMENOrdering Facility: [facility] Address: [address] [place] [address] Performed By: #### 5 7021-8 ####[facility] LABCLIA [id number] [address] LABCLIA [id number] [place] [address] [place] Basophils/100 WBC (Bld) 4.0 % Normal [facility] Comment on above: Order Comment: Speci men Type: BLOOD SPECIMENOrdering Facility: [facility] Address: [address] [place] [address] Performed By: #### 5 7021-8 ####[facility] LABCLIA [id number] [address] LABCLIA [id number] [place] [address] [place] Differential cell count method Nom (Bld) Manual Normal [facility] Comment on above: Order Comment: Speci men Type: BLOOD SPECIMENOrdering Facility: [facility] Address: [address] [place] [address] Performed By: #### 5 7021-8 ####[facility] LABCLIA [id number] [address] LABCLIA [id number] [place] [address] [place] Eosinophils (Bld) [#/Vol] 0.00 10*3/uL Normal <0.46 [facility] Comment on above: Order Comment: Speci men Type: BLOOD SPECIMENOrdering Facility: [facility] Address: [address] [place] [address] Performed By: #### 5 7021-8 ####[facility] LABCLIA [id number] [address] LABCLIA [id number] [place] [address] [place] Eosinophils/100 WBC (Bld) 0.0 % Normal [facility] Comment on above: Order Comment: Speci men Type: BLOOD SPECIMENOrdering Facility: [facility] [facility] Address: [address] [place] [address] Performed By: #### 5 7021-8 ####[facility] LABCLIA [id number] [address] LABCLIA [id number] [place] [address] [place] Erythrocyte distribution width (RBC) [Ratio] 23.8 % High 11.5-15.0 [facility] Comment on above: Order Comment: Speci men Type: BLOOD SPECIMENOrdering Facility: [facility] Address: [address] [place] [address] Performed By: #### 5 7021-8 ####[facility] LABCLIA [id number] [address] LABCLIA [id number] [place] [address] [place] Giant platelets LM Ql (Bld) Occasional Normal [facility] Comment on above: Order Comment: Speci men Type: BLOOD SPECIMENOrdering Facility: [facility] Address: [address] [place] [address] Performed By: #### 5 7021-8 ####[facility] LABCLIA [id number] [place] [address] LABCLIA [id number] [place] [address] [place] Hematocrit (Bld) [Volume fraction] 23.4 % Low 39.0-51.0 [facility] Comment on above: Order Comment: Speci men Type: BLOOD SPECIMENOrdering Facility: [facility] Address: [address] [place] [address] Performed By: #### 5 7021-8 ####[facility] LABCLIA [id number] [address] LABCLIA [id number] [place] [address] [place] Hemoglobin (Bld) [Mass/Vol] 7.3 g/dL Low 13.0-17.0 [facility] Comment on above: Order Comment: Speci men Type: BLOOD SPECIMENOrdering Facility: [facility] Address: [address] [place], [place] [address] Performed By: #### 5 7021-8 ####[facility] LABCLIA [id number] [address] LABCLIA [id number] [place] [address] [place] Lymphocytes (Bld) [#/Vol] 0.87 10*3/uL Low 1.00-4.00 [facility] Comment on above: Order Comment: Speci men Type: BLOOD SPECIMENOrdering Facility: [facility] Address: [address] [place], [place] [address] Performed By: #### 5 7021-8 ####[facility] LABCLIA [id number] [address] LABCLIA [id number] [place] [address] [place] Lymphocytes/100 WBC (Bld) 45.0 % Normal [facility] Comment on above: Order Comment: Speci men Type: BLOOD SPECIMENOrdering Facility: [facility] Address: [address] [place] [address] Performed By: #### 5 7021-8 ####[facility] LABCLIA [id number] [address] LABCLIA [id number] [place] [address] [place] MCH (RBC) [Entitic mass] 34.9 pg High 26.0-34.0 [facility] Comment on above: Order Comment: Speci men Type: BLOOD SPECIMENOrdering Facility: [facility] Address: [address] [place] [address] Performed By: #### 5 7021-8 ####[facility] LABCLIA [id number] [address] LABCLIA [id number] [place] [address] [place] MCHC (RBC) [Mass/Vol] 31.2 g/dL Normal 30.5-36.0 [facility] Comment on above: Order Comment: Speci men Type: BLOOD SPECIMENOrdering Facility: [facility] Address: [address] [place] [address] Performed By: #### 5 7021-8 ####[facility] LABCLIA [id number] [address] LABCLIA [id number] [place] [address] [place] MCV (RBC) [Entitic vol] 112.0 fL High 80.0-100.0 [facility] Comment on above: Order Comment: Speci men Type: BLOOD SPECIMENOrdering Facility: [facility] Address: [address] [place] [address] Performed By: #### 5 7021-8 ####[facility] LABCLIA [id number] [address] LABCLIA [id number] [place] [address] [place] Neutrophils (Bld) [#/Vol] 0.70 10*3/uL Low 1.45-7.50 [facility] Comment on above: Order Comment: Speci men Type: BLOOD SPECIMENOrdering Facility: [facility] Address: [address] [place] [address] Performed By: #### 5 7021-8 ####[facility] LABCLIA [id number] [address] LABCLIA [id number] [place] [address] [place] Neutrophils/100 WBC (Bld) 36.0 % Normal [facility] Comment on above: Order Comment: Speci men Type: BLOOD SPECIMENOrdering Facility: [facility] Address: [address] [place], [place] [address] Performed By: #### 5 7021-8 ####[facility] LABCLIA [id number] [address] LABCLIA [id number] [place] [address] [place] Nucleated RBC/100 WBC (Bld) [Ratio] 0.0 /100 WBC Normal [facility] Comment on above: Order Comment: Speci men Type: BLOOD SPECIMENOrdering Facility: [facility] Address: [address] [place] [address] Performed By: #### 5 7021-8 ####[facility] LABCLIA [id number] [address] LABCLIA [id number] [place] [address] [place] Ovalocytes LM Ql (Bld) Few Normal [facility] Comment on above: Order Comment: Speci men Type: BLOOD SPECIMENOrdering Facility: [facility] Address: [address] [place] [address] Performed By: #### 5 7021-8 ####[facility] LABCLIA [id number] [address] LABCLIA [id number] [place] [address] [place] PLATELET ESTIMATE Adequate Normal [facility] Comment on above: Order Comment: Speci men Type: BLOOD SPECIMENOrdering Facility: [facility] Address: [address] [place] [address] Performed By: #### 5 7021-8 ####[facility] LABCLIA [id number] [address] LABCLIA [id number] [place] [address] [place] Platelet mean volume (Bld) [Entitic vol] 12.8 fL High 9.0-12.7 [facility] Comment on above: Order Comment: Speci men Type: BLOOD SPECIMENOrdering Facility: [facility] Address: [address] [place] [address] Performed By: #### 5 7021-8 ####[facility] LABCLIA [id number] [address] LABCLIA [id number] [place] [address] [place] Platelets (Bld) [#/Vol] 155 10*3/uL Normal 150-400 [facility] Comment on above: Order Comment: Speci men Type: BLOOD SPECIMENOrdering Facility: [facility] Address: [address] [place] [address] Result Comment: Resu lts checked and verified. No clot detected. Platelet count confirmed by manual review of peripheral blood smear Performed By: #### 5 7021-8 ####[facility] LABCLIA [id number] [place] [address] LABCLIA [id number] [place] [address] [place] Polychromasia LM Ql (Bld) Slight Normal [facility] Comment on above: Order Comment: Speci men Type: BLOOD SPECIMENOrdering Facility: [facility] Address: [address] [place], [place] [address] Performed By: #### 5 7021-8 ####[facility] LABCLIA [id number] [address] LABCLIA [id number] [place] [address] [place] RBC (Bld) [#/Vol] 2.09 10*6/uL Low 4.20-6.00 [facility] Comment on above: Order Comment: Speci men Type: BLOOD SPECIMENOrdering Facility: [facility] Address: [address] [place] [address] Performed By: #### 5 7021-8 ####[facility] LABCLIA [id number] [address] LABCLIA [id number] [place] [address] [place] RBC FRAGMENTS Few Abnormal None Seen [facility] Comment on above: Order Comment: Speci men Type: BLOOD SPECIMENOrdering Facility: [facility] Address: [address] [place] [address] Performed By: #### 5 7021-8 ####[facility] LABCLIA [id number] [address] LABCLIA [id number] [place] [address] [place] RED CELL MORPH Reviewed: see result s of individual morphologies Normal [facility] Comment on above: Order Comment: Speci men Type: BLOOD SPECIMENOrdering Facility: [facility] Address: [address] [place] [address] Performed By: #### 5 7021-8 ####[facility] LABCLIA [id number] [address] LABCLIA [id number] [place] [address] [place] WAM - ABS BASO 0.08 k/uL Normal <0.11 [facility] Comment on above: Order Comment: Speci men Type: BLOOD SPECIMENOrdering Facility: [facility] Address: [address] [place] [address] Performed By: #### 5 7021-8 ####[facility] LABCLIA [id number] [address] LABCLIA [id number] [place] [address] [place] WAM - ABS MONO 0.29 k/uL Normal <0.87 [facility] Comment on above: Order Comment: Speci men Type: BLOOD SPECIMENOrdering Facility: [facility] Address: [address] [place] [address] Performed By: #### 5 7021-8 ####[facility] LABCLIA [id number] [address] LABCLIA [id number] [place] [address] [place] WAM - MONO% 15.0 % Normal [facility] Comment on above: Order Comment: Speci men Type: BLOOD SPECIMENOrdering Facility: [facility] Address: [address] [place] [address] Performed By: #### 5 7021-8 ####[facility] LABCLIA [id number] [address] LABCLIA [id number] [place] [address] [place] WAM ABSOLUTE NRBC <0.01 Normal <0.01 [facility] Comment on above: Order Comment: Speci men Type: BLOOD SPECIMENOrdering Facility: [facility] Address: [address] [place], [place] [address] Result Comment: This result was previously suppressed from the chart. Performed By: #### 5 7021-8 ####[facility] LABCLIA [id number] [place] [address] LABCLIA [id number] [place] [address] [place] WBC (Bld) [#/Vol] 1.96 10*3/uL Low 3.70-11.00 [facility] Comment on above: Order Comment: Speci men Type: BLOOD SPECIMENOrdering Facility: [facility] Address: [address] [place], [place] [address] Performed By: #### 5 7021-8 ####[facility] LABCLIA [id number] [place] [address] LABCLIA [id number] [place] [address] [place] CNOVSPon 01-14-2022 CNOVSP Normal [facility] CNPNon 01-14-2022 CNPN Normal [facility] Comprehensive metabolic 2000 panelon 01-14-2022 Albumin [Mass/Vol] 4.0 g/dL Normal 3.9-4.9 [facility] Comment on above: Order Comment: Speci men Type: BLOOD SPECIMENOrdering Facility: [facility] Address: [address] [place], [place] [address] Performed By: #### 2 532-0, 15149-3 ####[facility] LABCLIA [id number] [place] [id number] ALP [Catalytic activity/Vol] 70 U/L Normal 38-113 [facility] Comment on above: Order Comment: Speci men Type: BLOOD SPECIMENOrdering Facility: [facility] Address: [address] [place] [address] Performed By: #### 2 532-0, ####[facility] LABCLIA [id number] [place] [address] ALT [Catalytic activity/Vol] 14 U/L Normal 10-54 [facility] Comment on above: Order Comment: Speci men Type: BLOOD SPECIMENOrdering Facility: [facility] Address: [address] [place] [address] Performed By: #### 2 532-0, ####[facility] LABCLIA [id number] [place] [address] Anion gap [Moles/Vol] 11 mmol/L Normal 9-18 [facility] Comment on above: Order Comment: Speci men Type: BLOOD SPECIMENOrdering Facility: [facility] Address: [address] [place] [address] Performed By: #### 2 532-0, ####[facility] LABIA [id number] [place] [address] AST [Catalytic activity/Vol] 10 U/L Low 14-40 [facility] Comment on above: Order Comment: Speci men Type: BLOOD SPECIMENOrdering Facility: [facility] Address: [address] [place] [address] Performed By: #### 2 532-0, 08573-6 ####[facility] LABCLIA [id number] [place] [address] Bilirubin [Mass/Vol] 0.5 mg/dL Normal 0.2-1.3 [facility] Comment on above: Order Comment: Speci men Type: BLOOD SPECIMENOrdering Facility: [facility] Address: [address] [place] [address] Performed By: #### 2 532-0, 12984-3 ####[facility] LABCLIA [id number] [place] [address] Calcium [Mass/Vol] 9.0 mg/dL Normal 8.5-10.2 [facility] Comment on above: Order Comment: Speci men Type: BLOOD SPECIMENOrdering Facility: [facility] Address: [address] [place] [address] Performed By: #### 2 532-0, 94146-3 ####[facility] LABCLIA [id number] [place] [address] Chloride [Moles/Vol] 104 mmol/L Normal 97-105 [facility] Comment on above: Order Comment: Speci men Type: BLOOD SPECIMENOrdering Facility: [facility] Address: [address] [place] [address] Performed By: #### 2 532-0, 29132-6 ####[facility] LABCLIA [id number] [place] [address] CO2 [Moles/Vol] 27 mmol/L Normal 22-30 [facility] Comment on above: Order Comment: Speci men Type: BLOOD SPECIMENOrdering Facility: [facility] Address: [address] [place] [address] Performed By: #### 2 532-0, 84241-6 ####[facility] LABCLIA [id number] [place] [address] Creatinine [Mass/Vol] 2.13 mg/dL High 0.73-1.22 [facility] Comment on above: Order Comment: Speci men Type: BLOOD SPECIMENOrdering Facility: [facility] Address: [address] [place] [address] Performed By: #### 2 532-0, 47027-4 ####[facility] LABCLIA [id number] [place] [address] ESTIMATED GLOMERULAR FILTRATION RATE 30 mL/min/1.73m??? Low >=60 [facility] Comment on above: Order Comment: Davi avendaño Type: BLOOD SPECIMENOrdering Facility: [facility] Address: [address] [place] [address] Result Comment: Faye mated Glomerular Filtration Rate [...] actual GFR. Performed By: #### 2 532-0, 33141-1 ####[facility] LABCLIA [id number] [place] [address] Glucose [Mass/Vol] 216 mg/dL High 74-99 [facility] Comment on above: Order Comment: Davi avendaño Type: BLOOD SPECIMENOrdering Facility: [facility] Address: [address] [place] [id number] Result Comment: The [place] [employer] (ADA) provides guidance for cutoff [...] Standards of Medical Care in Diabetes 2016, [place] [employer]. Diabetes Care. 2016.39(Suppl 1). Performed By: #### 2 532-0, 40995-8 ####[facility] LABCLIA [id number] [place] [address] Potassium [Moles/Vol] 4.4 mmol/L Normal 3.7-5.1 [facility] Comment on above: Order Comment: Davi avendaño Type: BLOOD SPECIMENOrdering Facility: [facility] Address: [address] [place] [address] Performed By: #### 2 532-0, 32144-9 ####[facility] LABCLIA [id number] [place] [address] Protein [Mass/Vol] 6.1 g/dL Low 6.3-8.0 [facility] Comment on above: Order Comment: Speci men Type: BLOOD SPECIMENOrdering Facility: [facility] Address: [address] [place] [address] Performed By: #### 2 532-0, ####[facility] LABCLIA [id number] [place] [address] Sodium [Moles/Vol] 142 mmol/L Normal 136-144 [facility] Comment on above: Order Comment: Speci men Type: BLOOD SPECIMENOrdering Facility: [facility] Address: [address] [place] [address] Performed By: #### 2 532-0, ####[facility] LABCLIA [id number] [place] [address] Urea nitrogen [Mass/Vol] 26 mg/dL High 9-24 [facility] Comment on above: Order Comment: Speci men Type: BLOOD SPECIMENOrdering Facility: [facility] Address: [address] [place] [address] Performed By: #### 2 532-0, ####[facility] LABCLIA [id number] [place] [address] LDH SerPl-cCncon 01-14-2022 LDH [Catalytic activity/Vol] 214 U/L Normal 135-225 [facility] Comment on above: Order Comment: Speci men Type: BLOOD SPECIMENOrdering Facility: [facility] Address: [address] [place] [address] Performed By: #### 2 532-0, 28789-0 ####[facility] LABCLIA [id number] [place] [address] CBC W Auto Differential pane l (Bld)on 01-07-2022 Basophils (Bld) [#/Vol] 10*3/uL Normal <0.11 [facility] Comment on above: Order Comment: Speci men Type: BLOOD SPECIMENOrdering Facility: [facility] Address: [address] [place] [address] Performed By: #### 5 7021-8 ####[facility] LABCLIA [id number] [place] [address] Basophils/100 WBC (Bld) 0.9 % Normal [facility] Comment on above: Order Comment: Speci men Type: BLOOD SPECIMENOrdering Facility: [facility] Address: [address] [place] [address] Performed By: #### 5 7021-8 ####[facility] LABCLIA [id number] [place] [address] Differential cell count method Nom (Bld) Auto Normal [facility] Comment on above: Order Comment: Speci men Type: BLOOD SPECIMENOrdering Facility: [facility] Address: [address] [place] [address] Performed By: #### 5 7021-8 ####[facility] LABCLIA [id number] [place] [address] Eosinophils (Bld) [#/Vol] 10*3/uL Normal <0.46 [facility] Comment on above: Order Comment: Speci men Type: BLOOD SPECIMENOrdering Facility: [facility] Address: [address] [place] [address] Performed By: #### 5 7021-8 ####[facility] LABCLIA [id number] [place] [address] Eosinophils/100 WBC (Bld) 0.0 % Normal [facility] Comment on above: Order Comment: Speci men Type: BLOOD SPECIMENOrdering Facility: [facility] Address: [address] [place] [address] Performed By: #### 5 7021-8 ####[facility] LABIA [id number] [place] [address] Erythrocyte distribution width (RBC) [Ratio] 21.7 % High 11.5-15.0 [facility] Comment on above: Order Comment: Speci men Type: BLOOD SPECIMENOrdering Facility: [facility] Address: [address] [place] [address] Performed By: #### 5 7021-8 ####[facility] LABCLIA [id number] [place] [address] Hematocrit (Bld) [Volume fraction] 24.4 % Low 39.0-51.0 [facility] Comment on above: Order Comment: Speci men Type: BLOOD SPECIMENOrdering Facility: [facility] Address: [address] [place] [address] Performed By: #### 5 7021-8 ####[facility] LABIA [id number] [place] [address] Hemoglobin (Bld) [Mass/Vol] 7.7 g/dL Low 13.0-17.0 [facility] Comment on above: Order Comment: Speci men Type: BLOOD SPECIMENOrdering Facility: [facility] Address: [address] [place] [address] Performed By: #### 5 7021-8 ####[facility] LABIA [id number] [place] [address] IMMATURE GRAN % 0.9 % Normal [facility] Comment on above: Order Comment: Speci men Type: BLOOD SPECIMENOrdering Facility: [facility] Address: [address] [place] [address] Performed By: #### 5 7021-8 ####[facility] LABIA [id number] [place] [address] IMMATURE GRAN ABS <0.03 Normal <0.10 [facility] Comment on above: Order Comment: Speci men Type: BLOOD SPECIMENOrdering Facility: [facility] Address: [address] [place] [address] Performed By: #### 5 7021-8 ####[facility] LABCLIA [id number] [place] [address] Lymphocytes (Bld) [#/Vol] 0.78 10*3/uL Low 1.00-4.00 [facility] Comment on above: Order Comment: Speci men Type: BLOOD SPECIMENOrdering Facility: [facility] Address: [address] [place] [address] Performed By: #### 5 7021-8 ####[facility] LABCLIA [id number] [place] [address] Lymphocytes/100 WBC (Bld) 36.6 % Normal [facility] Comment on above: Order Comment: Speci men Type: BLOOD SPECIMENOrdering Facility: [facility] Address: [address] [place] [address] Performed By: #### 5 7021-8 ####[facility] LABCLIA [id number] [place] [address] MCH (RBC) [Entitic mass] 34.5 pg High 26.0-34.0 [facility] Comment on above: Order Comment: Speci men Type: BLOOD SPECIMENOrdering Facility: [facility] Address: [address] [place], [place] [address] Performed By: #### 5 7021-8 ####[facility] LABCLIA [id number] [place] [address] MCHC (RBC) [Mass/Vol] 31.6 g/dL Normal 30.5-36.0 [facility] Comment on above: Order Comment: Speci men Type: BLOOD SPECIMENOrdering Facility: [facility] Address: [address] [place], [place] [address] Performed By: #### 5 7021-8 ####[facility] LABCLIA [id number] [place] [address] MCV (RBC) [Entitic vol] 109.4 fL High 80.0-100.0 [facility] Comment on above: Order Comment: Speci men Type: BLOOD SPECIMENOrdering Facility: [facility] Address: [address] [place] [address] Performed By: #### 5 7021-8 ####[facility] LABCLIA [id number] [place] [address] Monocytes (Bld) [#/Vol] 0.44 10*3/uL Normal <0.87 [facility] Comment on above: Order Comment: Speci men Type: BLOOD SPECIMENOrdering Facility: [facility] Address: [address] [place] [address] Performed By: #### 5 7021-8 ####[facility] LABCLIA [id number] [place] [address] Monocytes/100 WBC (Bld) 20.7 % Normal [facility] Comment on above: Order Comment: Speci men Type: BLOOD SPECIMENOrdering Facility: [facility] Address: [address] [place] [address] Performed By: #### 5 7021-8 ####[facility] LABCLIA [id number] [place] [address] Neutrophils (Bld) [#/Vol] 0.87 10*3/uL Low 1.45-7.50 [facility] Comment on above: Order Comment: Speci men Type: BLOOD SPECIMENOrdering Facility: [facility] Address: [address] [place] [address] Performed By: #### 5 7021-8 ####[facility] LABCLIA [id number] [place] [address] Neutrophils/100 WBC (Bld) 40.9 % Normal [facility] Comment on above: Order Comment: Speci men Type: BLOOD SPECIMENOrdering Facility: [facility] Address: [address] [place] [address] Performed By: #### 5 7021-8 ####[facility] LABCLIA [id number] [place] [address] Nucleated RBC (Bld) [#/Vol] 10*3/uL Normal <0.01 [facility] Comment on above: Order Comment: Speci men Type: BLOOD SPECIMENOrdering Facility: [facility] Address: [address] [place] [address] Performed By: #### 5 7021-8 ####[facility] LABCLIA [id number] [place] [address] Nucleated RBC/100 WBC (Bld) [Ratio] 0.0 /100 WBC Normal [facility] Comment on above: Order Comment: Speci men Type: BLOOD SPECIMENOrdering Facility: [facility] Address: [address] [place] [address] Performed By: #### 5 7021-8 ####[facility] LABIA [id number] [place] [address] Platelet mean volume (Bld) [Entitic vol] 12.3 fL Normal 9.0-12.7 [facility] Comment on above: Order Comment: Speci men Type: BLOOD SPECIMENOrdering Facility: [facility] Address: [address] [place] [address] Performed By: #### 5 7021-8 ####[facility] LABCLIA [id number] [place] [address] Platelets (Bld) [#/Vol] 80 10*3/uL Low 150-400 [facility] Comment on above: Order Comment: Speci men Type: BLOOD SPECIMENOrdering Facility: [facility] Address: [address] [place] [address] Result Comment: [facility] Performed By: #### 5 7021-8 ####[facility] LABCLIA [id number] [place] [address] RBC (Bld) [#/Vol] 2.23 10*6/uL Low 4.20-6.00 [facility] Comment on above: Order Comment: Speci men Type: BLOOD SPECIMENOrdering Facility: [facility] Address: [address] [place] [address] Performed By: #### 5 7021-8 ####[facility] LABCLIA [id number] [place] [address] WBC (Bld) [#/Vol] 2.13 10*3/uL Low 3.70-11.00 [facility] Comment on above: Order Comment: Speci men Type: BLOOD SPECIMENOrdering Facility: [facility] Address: [address] [place] [address] Performed By: #### 5 7021-8 ####[facility] LABCLIA [id number] [place] [address] CNNURSEon 01-07-2022 CNNURSE Normal [facility] Comprehensive metabolic 2000 panelon 01-07-2022 Albumin [Mass/Vol] 3.8 g/dL Low 3.9-4.9 [facility] Comment on above: Order Comment: Speci men Type: BLOOD SPECIMENOrdering Facility: [facility] Address: [address] [place], [place] [address] Performed By: #### 2 4323-8, 2531-0 ####[facility] LABCLIA [id number] [place] [address] ALP [Catalytic activity/Vol] 76 U/L Normal 38-113 [facility] Comment on above: Order Comment: Speci men Type: BLOOD SPECIMENOrdering Facility: [facility] Address: [address] [place] [address] Performed By: #### 2 4323-8, 2532-0 ####[facility] LABCLIA [id number] [place] [address] ALT [Catalytic activity/Vol] 16 U/L Normal 10-54 [facility] Comment on above: Order Comment: Speci men Type: BLOOD SPECIMENOrdering Facility: [facility] Address: [address] [place] [address] Performed By: #### 2 4323-8, 253-0 ####[facility] LABCLIA [id number] [place] [address] Anion gap [Moles/Vol] 7 mmol/L Low 9-18 [facility] Comment on above: Order Comment: Speci men Type: BLOOD SPECIMENOrdering Facility: [facility] Address: [address] [place] [address] Performed By: #### 2 4323-8, 253-0 ####[facility] LABCLIA [id number] [place] [address] AST [Catalytic activity/Vol] 10 U/L Low 14-40 [facility] Comment on above: Order Comment: Speci men Type: BLOOD SPECIMENOrdering Facility: [facility] Address: [address] [place] [address] Performed By: #### 2 4323-8, 2531-0 ####[facility] LABCLIA [id number] [place] [address] Bilirubin [Mass/Vol] 0.6 mg/dL Normal 0.2-1.3 [facility] Comment on above: Order Comment: Speci men Type: BLOOD SPECIMENOrdering Facility: [facility] Address: [address] [place], [place] [address] Performed By: #### 2 4323-8, 2532-0 ####[facility] LABIA [id number] [place] [address] Calcium [Mass/Vol] 8.8 mg/dL Normal 8.5-10.2 [facility] Comment on above: Order Comment: Speci men Type: BLOOD SPECIMENOrdering Facility: [facility] Address: [address] Performed By: #### 2 4323-8, 253-0 ####[facility] LABCLIA [id number] [place] [address] Chloride [Moles/Vol] 104 mmol/L Normal 97-105 [facility] Comment on above: Order Comment: Speci men Type: BLOOD SPECIMENOrdering Facility: [facility] Address: [address] [place], [place] [address] Performed By: #### 2 4323-8, 253-0 ####[facility] LABCLIA [id number] [place] [address] CO2 [Moles/Vol] 28 mmol/L Normal 22-30 [facility] Comment on above: Order Comment: Speci men Type: BLOOD SPECIMENOrdering Facility: [facility] Address: [address] [place] [address] Performed By: #### 2 4323-8, 2531-0 ####[facility] LABIA [id number] [place] [address] Creatinine [Mass/Vol] 1.68 mg/dL High 0.73-1.22 [facility] Comment on above: Order Comment: Speci men Type: BLOOD SPECIMENOrdering Facility: [facility] Address: [address] [place], [place] [address] Performed By: #### 2 4323-8, 253-0 ####[facility] LABIA [id number] [place] [address] ESTIMATED GLOMERULAR FILTRATION RATE 40 mL/min/1.73m??? Low >=60 [facility] Comment on above: Order Comment: Speci men Type: BLOOD SPECIMENOrdering Facility: [facility] Address: [address] [place] [address] Result Comment: Faye mated Glomerular Filtration Rate [...] GFR. Performed By: #### 2 4323-8, 2531-0 ####[facility] LABCLIA [id number] [place] [address] Glucose [Mass/Vol] 180 mg/dL High 74-99 [facility] Comment on above: Order Comment: Davi avendaño Type: BLOOD SPECIMENOrdering Facility: [facility] Address: [address] [place], [place] [phone] Result Comment: The [place] [employer] (ADA) provides guidance for cutoff [...] Standards of Medical Care in Diabetes 2016, [place] [employer]. Diabetes Care. 2016.39(Suppl 1). Performed By: #### 2 43238, 0 ####[facility] LABCLIA [id number] [place] [address] Potassium [Moles/Vol] 4.4 mmol/L Normal 3.7-5.1 [facility] Comment on above: Order Comment: Davi avendaño Type: BLOOD SPECIMENOrdering Facility: [facility] Address: [address] [place] [address] Performed By: #### 2 4323-8, 2531-0 ####[facility] LABCLIA [id number] [place] [address] Protein [Mass/Vol] 6.0 g/dL Low 6.3-8.0 [facility] Comment on above: Order Comment: Speci men Type: BLOOD SPECIMENOrdering Facility: [facility] Address: [address] [place] [address] Performed By: #### 2 4323-8, 2531-0 ####[facility] LABCLIA [id number] [place] [address] Sodium [Moles/Vol] 139 mmol/L Normal 136-144 [facility] Comment on above: Order Comment: Speci men Type: BLOOD SPECIMENOrdering Facility: [facility] Address: [address] [place] [address] Performed By: #### 2 4323-8, 2531-0 ####[facility] LABCLIA [id number] [place] [address] Urea nitrogen [Mass/Vol] 11 mg/dL Normal 9-24 [facility] Comment on above: Order Comment: Speci men Type: BLOOD SPECIMENOrdering Facility: [facility] Address: [address] [place] [address] Performed By: #### 2 4323-8, 2531-0 ####[facility] LABCLIA [id number] [place] [address] LDH SerPl-cCncon 01-07-2022 LDH [Catalytic activity/Vol] 211 U/L Normal 135-225 [facility] Comment on above: Order Comment: Speci men Type: BLOOD SPECIMENOrdering Facility: [facility] Address: [address] [place], [place] [address] Performed By: #### 2 4323-8, 2531-0 ####[facility] LABCLIA [id number] [place] [address] Cardiovascular Lab Reporton 11-29-2021 Cardiovascular Lab Report [facility] Patient Name: [facility] Sandip Swain MR #: [id number] Department of Physician: Valentín Lee MD Division of Service Date: 11/21/2021 Cardiology Birthdate: 1940 Adult Cardiovascular Room #: 4AB [id number] [address] [place] [address] Cardiovascular Laboratory Report PROCEDURES PERFORMED: Right heart [...] Lee MD Date Trans: 11/29/2021 08:03 P/simon [id number] cc: Flash Pearl M.D. [address] [place] [id number] Normal [facility] POC GLUCOSE LABon 11-25-2021 Glucose [Mass/Vol] 210 mg/dL High 70-100 [facility] Comment on above: Performed By: #### 8 5499 #### [facility] [address] [place] [address], [facility] Glucose [Mass/Vol] 203 mg/dL High 70-100 [facility] Comment on above: Performed By: #### 8 5499 #### [facility] [address] [place] [address], [facility] Glucose [Mass/Vol] 202 mg/dL High 70-100 [facility] Comment on above: Performed By: #### 8 5499 #### [facility] [address] [place] [address], [facility] BNP (B-TYPE NATRIURETIC PEPT IZAIAH)on 11-24-2021 Natriuretic peptide B (Bld) [Mass/Vol] 685 pg/mL High 0-100 [facility] Comment on above: Order Comment: No: D o not add to previous draw Result Comment: Give n the appropriate clinical setting a BNP result of >100 pg/mL indicates congestive heart failure. Performed By: #### 8 5123 ####[facility] [facility] [place] [address], [facility] CBC W/DIFFon 11-24-2021 ABS NEUTROPHILS 2.5 10*3/uL Normal 1.6-7.6 [facility] Comment on above: Order Comment: RIGHT BICEP Performed By: #### 3 0313 #### [facility] [address] [place] [address], [facility] ANISO Moderate Normal [facility] Comment on above: Order Comment: RIGHT BICEP Performed By: #### 3 0313 #### [facility] [address] [place] [address], [facility] Basophils (Bld) [#/Vol] 0.0 10*3/uL Normal 0.0-0.2 [facility] Comment on above: Order Comment: RIGHT BICEP Performed By: #### 3 0313 #### [facility] [address] [place] [address], [facility] Basophils/100 WBC (Bld) 0.9 % Normal 0.0-1.0 [facility] Comment on above: Order Comment: RIGHT BICEP Performed By: #### 3 0313 #### [facility] [address] [place] [address], [facility] Eosinophils (Bld) [#/Vol] 0.0 10*3/uL Normal 0.0-0.5 [facility] Comment on above: Order Comment: RIGHT BICEP Performed By: #### 3 3 #### [facility] [address] [place] [address], [facility] Eosinophils/100 WBC (Bld) 0.0 % Normal 0.0-6.0 [facility] Comment on above: Order Comment: RIGHT BICEP Performed By: #### 3 3 #### [facility] [address] Erythrocyte distribution width (RBC) [Ratio] 22.0 % High 11.5-15.0 [facility] Comment on above: Order Comment: RIGHT BICEP Performed By: #### 3 0313 #### [facility] [address] [place] [address], [facility] GIANT PLATELETS Present Normal [facility] Comment on above: Order Comment: RIGHT BICEP Performed By: #### 3 0313 #### [facility] [address] [place] [address], [facility] Hematocrit (Bld) [Volume fraction] 27.9 % Low 39.0-50.0 [facility] Comment on above: Order Comment: RIGHT BICEP Performed By: #### 3 3 #### [facility] [address] [place] [address], [facility] Hemoglobin (Bld) [Mass/Vol] 8.8 g/dL Low 13.0-17.0 [facility] Comment on above: Order Comment: RIGHT BICEP Performed By: #### 3 3 #### [facility] [address] [place] [address], [facility] IMM PLATELET FRAC 14.2 % High 0.8-6.3 [facility] Comment on above: Order Comment: RIGHT BICEP Performed By: #### 3 3 #### [facility] [address] [place] [address], [facility] Lymphocytes (Bld) [#/Vol] 0.5 10*3/uL Low 1.2-4.0 [facility] Comment on above: Order Comment: RIGHT BICEP Performed By: #### 3 0313 #### [facility] [address] [place] [address], [facility] Lymphocytes/100 WBC (Bld) 14.2 % Low 20.0-45.0 [facility] Comment on above: Order Comment: RIGHT BICEP Performed By: #### 3 0313 #### [facility] [address] [place] [address], [facility] MACRO Slight Normal [facility] Comment on above: Order Comment: RIGHT BICEP Performed By: #### 3 0313 #### [facility] [address] [place] [address], [facility] MCH (RBC) [Entitic mass] 34.6 pg High 27.0-33.0 [facility] Comment on above: Order Comment: RIGHT BICEP Performed By: #### 3 0313 #### [facility] [address] [place] [address], [facility] MCHC (RBC) [Mass/Vol] 31.5 g/dL Low 32.0-35.0 [facility] Comment on above: Order Comment: RIGHT BICEP Performed By: #### 3 0313 #### [facility] [address] [place] [address], [facility] MCV (RBC) [Entitic vol] 109.8 fL High 82.0-98.0 [facility] Comment on above: Order Comment: RIGHT BICEP Performed By: #### 3 3 #### [facility] [address] [place] [address], [facility] Monocytes (Bld) [#/Vol] 0.4 10*3/uL Normal 0.1-1.0 [facility] Comment on above: Order Comment: RIGHT BICEP Performed By: #### 3 3 #### [facility] [address] [place] [address], [place] MONOS 11.3 % Normal 5.0-12.0 [facility] Comment on above: Order Comment: RIGHT BICEP Performed By: #### 3 3 #### [facility] [address] [place] [address], [facility] MYELOS 6.6 % High 0.0-0.0 [facility] Comment on above: Order Comment: RIGHT BICEP Performed By: #### 3 3 #### [facility] [address] [place] [address], [facility] Neutrophils/100 WBC (Bld) 67.0 % Normal 40.0-72.0 [facility] Comment on above: Order Comment: RIGHT BICEP Performed By: #### 3 3 #### [facility] [address] [place] [address], [facility] Nucleated RBC/100 WBC (Bld) [Ratio] 1 % High 0-0 [facility] Comment on above: Order Comment: RIGHT BICEP Performed By: #### 3 3 #### [facility] [address] [place] [address], [place] PLAT CNT 186 10*3/uL Normal 150-400 [facility] Comment on above: Order Comment: RIGHT BICEP Performed By: #### 3 3 #### [facility] [address] [place] [address], [place] POIK Slight Normal [facility] Comment on above: Order Comment: RIGHT BICEP Performed By: #### 3 0313 #### [facility] [address] [place] [address], [facility] RBC (Bld) [#/Vol] 2.54 10*6/uL Low 4.20-5.70 [facility] Comment on above: Order Comment: RIGHT BICEP Performed By: #### 3 0313 #### [facility] [address] [place] [address], [place] WBC (Bld) [#/Vol] 3.77 10*3/uL Low 4.00-10.60 [facility] Comment on above: Order Comment: RIGHT BICEP Performed By: #### 3 0313 #### [facility] [address] [place] [address], [place] COMP METABOLIC PANELon 11-24 Albumin [Mass/Vol] 3.6 g/dL Normal 3.5-5.7 [facility] Comment on above: Order Comment: Evalu ate for Cardiomegaly Performed By: #### 0 0121, 72348, 92054 ####[facility] [place] [address], [facility] ALKALINE PHOSPH 44 IU/L Normal 34-104 [facility] Comment on above: Order Comment: Evalu ate for Cardiomegaly Performed By: #### 0 0121, 36914, 51509 ####[facility] [place] [address], [facility] ALT [Catalytic activity/Vol] 36 U/L Normal 7-52 [facility] Comment on above: Order Comment: Evalu ate for Cardiomegaly Performed By: #### 0 0121, 53416, 78525 ####[facility] [place] [address], [place] AST [Catalytic activity/Vol] 23 U/L Normal 13-39 [facility] Comment on above: Order Comment: Evalu ate for Cardiomegaly Performed By: #### 0 0121, 33520, 31502 ####[facility] [place] [address], [place] Bilirubin [Mass/Vol] 0.8 mg/dL Normal 0.3-1.0 [facility] Comment on above: Order Comment: Evalu ate for Cardiomegaly Performed By: #### 0 0121, 68559, 01280 ####[facility] [place] [address], [place] Calcium [Mass/Vol] 8.8 mg/dL Normal 8.6-10.3 [facility] Comment on above: Order Comment: Evalu ate for Cardiomegaly Performed By: #### 0 0121, 60016, 20039 ####[facility] [place] [address], [place] Chloride [Moles/Vol] 103 mmol/L Normal 98-107 [facility] Comment on above: Order Comment: Evalu ate for Cardiomegaly Performed By: #### 0 0121, 78759, 22651 ####[facility] [place] [address], [place] CO2 [Moles/Vol] 30 mmol/L Normal 21-31 [facility] Comment on above: Order Comment: Evalu ate for Cardiomegaly Performed By: #### 0 0121, 87665, 13252 ####[facility] [place] [address], [place] Creatinine [Mass/Vol] 1.54 mg/dL High 0.70-1.30 [facility] Comment on above: Order Comment: Evalu ate for Cardiomegaly Performed By: #### 0 0121, 24316, 75579 ####[facility] [place] [address], [place] eGFR- 53 ml/min/1.73sq m Abnormal >60 [facility] Comment on above: Order Comment: Evalu ate for Cardiomegaly Result Comment: Calc ulation may not be valid for patients over 70 years Performed By: #### 0 0121, 27779, 54446 ####[facility] [place] [address], [facility] eGFR- non- 43 ml/min/1.73sq m Abnormal >60 [facility] Comment on above: Order Comment: Evalu ate for Cardiomegaly Result Comment: Calc ulation may not be valid for patients over 70 years Performed By: #### 0 0121, 41808, 20533 ####[facility] [place] [address], [place] Glucose [Mass/Vol] 173 mg/dL High 70-100 [facility] Comment on above: Order Comment: Evalu ate for Cardiomegaly Performed By: #### 0 0121, 14583, 77374 ####[facility] [place] [address], [place] Potassium [Moles/Vol] 3.5 mmol/L Normal 3.5-5.1 [facility] Comment on above: Order Comment: Evalu ate for Cardiomegaly Performed By: #### 0 0121, 33890, 27820 ####[facility] [place] [address], [place] Protein [Mass/Vol] 6.2 g/dL Normal 6.0-8.3 [facility] Comment on above: Order Comment: Evalu ate for Cardiomegaly Performed By: #### 0 0121, 04213, 79050 ####[facility] [place] [address], [place] Sodium [Moles/Vol] 143 mmol/L Normal 136-145 [facility] Comment on above: Order Comment: Evalu ate for Cardiomegaly Performed By: #### 0 0121, 54833, 45817 ####[facility] [place] [address], [place] Urea nitrogen [Mass/Vol] 41 mg/dL High 7-25 [facility] Comment on above: Order Comment: Evalu ate for Cardiomegaly Performed By: #### 0 0121, 53961, 08874 ####[facility] [place] [address], [facility] LIPID PROFILEon 11-24-2021 Cholesterol [Mass/Vol] 69 mg/dL Low 120-200 [facility] Comment on above: Result Comment: CHOL ESTEROL REFERENCE RANGE: 20 YEARS AND OLDER CARDIOVASCULAR RISK Less than 200 mg/dl Low Risk 200 to 239 mg/dl Borderline Risk 240 mg/dl and greater High Risk Performed By: #### 0 0121, 87055, 82301 ####[facility] [place] [address], [facility] Cholesterol in HDL [Mass/Vol] 21 mg/dL Low 23-92 [facility] Comment on above: Result Comment: Slig ht variation in normal range could be due to gender and/or age. HDL CHOLESTEROL REFERENCE RANGE: 20 years and older Cardiovascular Risk > or =60 mg/dL Desirable 40 TO 59 mg/dL Low Risk <40 mg/dL High Risk Performed By: #### 0 0121, 37725, 89637 ####[facility] [place] [address], [facility] Cholesterol in LDL [Mass/Vol] 21 mg/dL Normal 0-130 [facility] Comment on above: Result Comment: LDL IS A CALCULATION LDL IS ONLY VALID IF THE TRIG IS LESS THAN 400. Performed By: #### 0 0121, 68003, 30276 ####[facility] [place] [address], [facility] Cholesterol.total/C holesterol in HDL [Mass ratio] 3.3 {ratio} Normal .0-4.5 [facility] Comment on above: Performed By: #### 0 0121, 57810, 49133 ####[facility] [place] [address], [facility] NON-HDL CHOLESTEROL 48 mg/dL Normal [facility] Comment on above: Performed By: #### 0 0121, 83071, 83677 ####[facility] [place] [address], [facility] Triglyceride [Mass/Vol] 134 mg/dL Normal 40-149 [facility] Comment on above: Result Comment: TRIG LYCERIDE REFERENCE RANGE: 20 YEARS AND OLDER CARDIOVASCULAR RISK LESS THAN 150 mg/dl LOW RISK 150 TO 199 mg/dl BORDERLINE RISK 200 mg/dl AND GREATER HIGH RISK Performed By: #### 0 0121, 60352, 57388 ####[facility] [place] [address], [facility] VLDL CHOL 27 mg/dL Normal 0-40 [facility] Comment on above: Performed By: #### 0 0121, 08642, 85680 ####[facility] [facility], [place] [address], [facility] MAGNESIUM BLOODon 11-24-2021 Magnesium [Mass/Vol] 2.2 mg/dL Normal 1.9-2.7 [facility] Comment on above: Order Comment: Evalu ate for Cardiomegaly Performed By: #### 0 0121, 01289, [id number] ####[facility] [place] [address], [facility] POC GLUCOSE LABon 11-24-2021 Glucose [Mass/Vol] 194 mg/dL High 70-100 [facility] Comment on above: Performed By: #### 3 7083 #### [facility] [address] [place] [address], [place] Glucose [Mass/Vol] 222 mg/dL High 70-100 [facility] Comment on above: Performed By: #### 3 4826 #### [facility] [address] [place] [address], [place] Glucose [Mass/Vol] 193 mg/dL High 70-100 [facility] Comment on above: Performed By: #### 8 5499 #### [facility] [address] [place] [address], [place] Glucose [Mass/Vol] 196 mg/dL High 70-100 [facility] Comment on above: Performed By: #### 3 2044 #### [facility] [address] [place] [address], [place] COMP METABOLIC PANELon 11-23 Albumin [Mass/Vol] 3.3 g/dL Low 3.5-5.7 [facility] Comment on above: Order Comment: No: D o not add to previous draw Performed By: #### 3 0477 #### [facility] [address] [place] [address], [place] ALKALINE PHOSPH 40 IU/L Normal 34-104 [facility] Comment on above: Order Comment: No: D o not add to previous draw Performed By: #### 3 0477 #### [facility] [address] [place] [address], [place] ALT [Catalytic activity/Vol] 34 U/L Normal 7-52 [facility] Comment on above: Order Comment: No: D o not add to previous draw Performed By: #### 3 0477 #### [facility] [address] [place] [address], [place] AST [Catalytic activity/Vol] 21 U/L Normal 13-39 [facility] Comment on above: Order Comment: No: D o not add to previous draw Performed By: #### 3 0477 #### [facility] [address] [place] [address], [place] Bilirubin [Mass/Vol] 0.8 mg/dL Normal 0.3-1.0 [facility] Comment on above: Order Comment: No: D o not add to previous draw Performed By: #### 3 0477 #### [facility] [address] [place] [address], [place] Calcium [Mass/Vol] 8.6 mg/dL Normal 8.6-10.3 [facility] Comment on above: Order Comment: No: D o not add to previous draw Performed By: #### 3 0477 #### [facility] [address] [place] [address], [place] Chloride [Moles/Vol] 103 mmol/L Normal 98-107 [facility] Comment on above: Order Comment: No: D o not add to previous draw Performed By: #### 3 0477 #### [facility] [address] [place] [address], [place] CO2 [Moles/Vol] 30 mmol/L Normal 21-31 [facility] Comment on above: Order Comment: No: D o not add to previous draw Performed By: #### 3 0477 #### [facility] [address] [place] [address], [place] Creatinine [Mass/Vol] 1.88 mg/dL High 0.70-1.30 [facility] Comment on above: Order Comment: No: D o not add to previous draw Performed By: #### 3 0477 #### [facility] [address] [place] [address], [facility] eGFR- 42 ml/min/1.73sq m Abnormal >60 [facility] Comment on above: Order Comment: No: D o not add to previous draw Result Comment: Calc ulation may not be valid for patients over 70 years Performed By: #### 3 0477 #### [facility] [address] [place] [address], [place] eGFR- non- 35 ml/min/1.73sq m Abnormal >60 [facility] Comment on above: Order Comment: No: D o not add to previous draw Result Comment: Calc ulation may not be valid for patients over 70 years Performed By: #### 3 0477 #### [facility] [address] [place] [address], [place] Glucose [Mass/Vol] 140 mg/dL High 70-100 [facility] Comment on above: Order Comment: No: D o not add to previous draw Performed By: #### 3 0477 #### [facility] [address] [place] [address], [place] Potassium [Moles/Vol] 3.5 mmol/L Normal 3.5-5.1 [facility] Comment on above: Order Comment: No: D o not add to previous draw Performed By: #### 3 0477 #### [facility] [address] [place] [address], [place] Protein [Mass/Vol] 5.9 g/dL Low 6.0-8.3 [facility] Comment on above: Order Comment: No: D o not add to previous draw Performed By: #### 3 0477 #### [facility] [address] [place] [address], [place] Sodium [Moles/Vol] 143 mmol/L Normal 136-145 [facility] Comment on above: Order Comment: No: D o not add to previous draw Performed By: #### 3 0477 #### [facility] [address] [place] [address], [place] Urea nitrogen [Mass/Vol] 47 mg/dL High 7-25 [facility] Comment on above: Order Comment: No: D o not add to previous draw Performed By: #### 3 0477 #### [facility] [address] [place] [address], [place] HEMOGLOBINon 11-23-2021 Hemoglobin (Bld) [Mass/Vol] 8.7 g/dL Low 13.0-17.0 [facility] Comment on above: Order Comment: meredith holden start lab draw at 5pm followed by q12 at 5am tomorrow No: Do not add to previous draw Performed By: #### 9 2089 #### [facility] [address] [place] [address], [facility] Hemoglobin (Bld) [Mass/Vol] 8.3 g/dL Low 13.0-17.0 [facility] Comment on above: Order Comment: meredith holden start lab draw at 5pm followed by q12 at 5am tomorrow Unknown Performed By: #### 9 2089 #### [facility] [address] [place] [address], [facility] MAGNESIUM BLOODon 11-23-2021 Magnesium [Mass/Vol] 2.2 mg/dL Normal 1.9-2.7 [facility] Comment on above: Order Comment: No: D o not add to previous draw Performed By: #### 3 0477 #### [facility] [address] [place] [address], [facility] POC GLUCOSE LABon 11-23-2021 Glucose [Mass/Vol] 159 mg/dL High 70-100 [facility] Comment on above: Performed By: #### 3 0313 #### [facility] [address] [place] [address], [facility] Glucose [Mass/Vol] 226 mg/dL High 70-100 [facility] Comment on above: Performed By: #### 8 5499 #### [facility] [address] [place] [address], [facility] PORTABLE CHEST 1 VIEWon 10-27 PORTABLE CHEST 1 VIEW [facility] Department of Radiology [address] [place] [address] [id number] ===== Patient Name: SANDIP BROUSSARD : 1940 Sex: M Age: Race: White Pt. Location: [address] [place] [address] Patient Status: I Ordered Date: 11/23/2021 1:10:00 [...] cardiomegaly. Electronically signed: Jasper Plunkett. Transcribed by: [email or web address], User Resident: Electronically Signed by: JASPER PLUNKETT @ 11/23/2021 02:34 PM Normal [facility] Comment on above: Order Comment: Cardi omegaly COMP METABOLIC PANELon 11-22 Albumin [Mass/Vol] 3.3 g/dL Low 3.5-5.7 [facility] Comment on above: Order Comment: No: D o not add to previous draw Performed By: #### 1 0070, [id number] ####[facility] [place] [address], [facility] ALKALINE PHOSPH 37 IU/L Normal 34-104 [facility] Comment on above: Order Comment: No: D o not add to previous draw Performed By: #### 1 0070, 36385 ####[facility] [address], [place] ALT [Catalytic activity/Vol] 32 U/L Normal 7-52 [facility] Comment on above: Order Comment: No: D o not add to previous draw Performed By: #### 1 69, 23282 ####[facility] [place] [address], [place] AST [Catalytic activity/Vol] 17 U/L Normal 13-39 [facility] Comment on above: Order Comment: No: D o not add to previous draw Performed By: #### 1 69, 82079 ####[facility] [place] [address], [place] Bilirubin [Mass/Vol] 0.9 mg/dL Normal 0.3-1.0 [facility] Comment on above: Order Comment: No: D o not add to previous draw Performed By: #### 1 69, 20985 ####[facility] [place] [address], [place] Calcium [Mass/Vol] 8.3 mg/dL Low 8.6-10.3 [facility] Comment on above: Order Comment: No: D o not add to previous draw Performed By: #### 1 69, 60115 ####[facility] [place] [address], [place] Chloride [Moles/Vol] 103 mmol/L Normal 98-107 [facility] Comment on above: Order Comment: No: D o not add to previous draw Performed By: #### 1 69, 01348 ####[facility] [place] [address], [place] CO2 [Moles/Vol] 28 mmol/L Normal 21-31 [facility] Comment on above: Order Comment: No: D o not add to previous draw Performed By: #### 1 69, ####[facility] [place] [address], [place] Creatinine [Mass/Vol] 1.92 mg/dL High 0.70-1.30 [facility] Comment on above: Order Comment: No: D o not add to previous draw Performed By: #### 1 0, 03050 ####[facility] [place] [address], [facility] eGFR- 41 ml/min/1.73sq m Abnormal >60 [facility] Comment on above: Order Comment: No: D o not add to previous draw Result Comment: Calc ulation may not be valid for patients over 70 years Performed By: #### 1 0, 10490 ####[facility] [place] [address], [facility] eGFR- non- 34 ml/min/1.73sq m Abnormal >60 [facility] Comment on above: Order Comment: No: D o not add to previous draw Result Comment: Calc ulation may not be valid for patients over 70 years Performed By: #### 1 69, 29459 ####[facility] [place] [address], [place] Glucose [Mass/Vol] 128 mg/dL High 70-100 [facility] Comment on above: Order Comment: No: D o not add to previous draw Performed By: #### 1 69, 79733 ####[facility] [place] [address], [place] Potassium [Moles/Vol] 3.5 mmol/L Normal 3.5-5.1 [facility] Comment on above: Order Comment: No: D o not add to previous draw Performed By: #### 1 0, 19234 ####[facility] [place] [address], [place] Protein [Mass/Vol] 5.7 g/dL Low 6.0-8.3 [facility] Comment on above: Order Comment: No: D o not add to previous draw Performed By: #### 1 69, 71442 ####[facility] [place] [address], [facility] Sodium [Moles/Vol] 142 mmol/L Normal 136-145 [facility] Comment on above: Order Comment: No: D o not add to previous draw Performed By: #### 1 0, 53738 ####[facility] [place] [address], [facility] Urea nitrogen [Mass/Vol] 51 mg/dL High 7-25 [facility] Comment on above: Order Comment: No: D o not add to previous draw Performed By: #### 1 69, 62554 ####[facility] [place] [address], [facility] HEMOGLOBINon 11-22-2021 Hemoglobin (Bld) [Mass/Vol] 9.1 g/dL Low 13.0-17.0 [facility] Comment on above: Order Comment: pletyler holden start lab draw at 5pm followed by q12 at 5am tomorrow No: Do not add to previous draw Performed By: #### 9 2089 #### [facility] [address] [place] [address], [place] MAGNESIUM BLOODon 11-22-2021 Magnesium [Mass/Vol] 2.1 mg/dL Normal 1.9-2.7 [facility] Comment on above: Order Comment: No: D o not add to previous draw Performed By: #### 1 69, 99115 ####[facility] [place] [address], [place] POC GLUCOSE LABon 11-22-2021 Glucose [Mass/Vol] 155 mg/dL High 70-100 [facility] Comment on above: Performed By: #### 8 5499 #### [facility] [address] [place] [address], [place] Glucose [Mass/Vol] 227 mg/dL High 70-100 [facility] Comment on above: Performed By: #### 8 3619 #### [facility] [address] [place] [address], [facility] Glucose [Mass/Vol] 141 mg/dL High 70-100 [facility] Comment on above: Performed By: #### 3 2044 #### [facility] [address] UFH HEPARIN ASSAYon 11-23-19 UNFRACTIONATED HEPARIN 0.20 IU/mL Low 0.30-0.70 [facility] Comment on above: Result Comment: [place] roxaban and Apixaban will interfere with the anti Xa assay used to monitor UFH and LMWH. Performed By: #### 5 0103 #### [facility] [address] [facility]. [address] CBC W/DIFFon 11-21-2021 ABS NEUTROPHILS 4.3 10*3/uL Normal 1.6-7.6 [facility] Comment on above: Order Comment: RIGHT BICEP Performed By: #### 3 0313 #### [facility] [address] [facility] ANISO Moderate Normal [facility] Comment on above: Order Comment: RIGHT BICEP Performed By: #### 3 0313 #### [facility] [address] [place] [address], [facility] Basophils (Bld) [#/Vol] 0.0 10*3/uL Normal 0.0-0.2 [facility] Comment on above: Order Comment: RIGHT BICEP Performed By: #### 3 0313 #### [facility] [address] [place] [address], [facility] Basophils/100 WBC (Bld) 0.0 % Normal 0.0-1.0 [facility] Comment on above: Order Comment: RIGHT BICEP Performed By: #### 3 0313 #### [facility] [address] [place] [address], [facility] Eosinophils (Bld) [#/Vol] 0.0 10*3/uL Normal 0.0-0.5 [facility] Comment on above: Order Comment: RIGHT BICEP Performed By: #### 3 0313 #### [facility] [address] [place] [address], [facility] Eosinophils/100 WBC (Bld) 0.0 % Normal 0.0-6.0 [facility] Comment on above: Order Comment: RIGHT BICEP Performed By: #### 3 0313 #### [facility] [address] [place] [address], [facility] Erythrocyte distribution width (RBC) [Ratio] 25.5 % High 11.5-15.0 [facility] Comment on above: Order Comment: RIGHT BICEP Performed By: #### 3 0313 #### [facility] [address] [place] [address], [facility] GIANT PLATELETS Present Normal [facility] Comment on above: Order Comment: RIGHT BICEP Performed By: #### 3 0313 #### [facility] [address] [place] [address], [facility] Hematocrit (Bld) [Volume fraction] 25.6 % Low 39.0-50.0 [facility] Comment on above: Order Comment: RIGHT BICEP Performed By: #### 3 0313 #### [facility] [address] [place] [id number], [facility] Hemoglobin (Bld) [Mass/Vol] 8.7 g/dL Low 13.0-17.0 [facility] Comment on above: Order Comment: RIGHT BICEP Performed By: #### 3 0313 #### [facility] [address] [place] [address], [place] IMM PLATELET FRAC 18.9 % High 0.8-6.3 [facility] Comment on above: Order Comment: RIGHT BICEP Performed By: #### 3 3 #### [facility] [address] [place] [address], [facility] Lymphocytes (Bld) [#/Vol] 0.4 10*3/uL Low 1.2-4.0 [facility] Comment on above: Order Comment: RIGHT BICEP Performed By: #### 3 0313 #### [facility] [address] [place] [address], [facility] Lymphocytes/100 WBC (Bld) 7.7 % Low 20.0-45.0 [facility] Comment on above: Order Comment: RIGHT BICEP Performed By: #### 3 0313 #### [facility] [address] [facility] [place] [address], [facility] MACRO Slight Normal [facility] Comment on above: Order Comment: RIGHT BICEP Performed By: #### 3 3 #### [facility] [address] [facility] [place] [address], [facility] MCH (RBC) [Entitic mass] 35.2 pg High 27.0-33.0 [facility] Comment on above: Order Comment: RIGHT BICEP Performed By: #### 3 0313 #### [facility] [address] [facility] [place] [address], [facility] MCHC (RBC) [Mass/Vol] 34.0 g/dL Normal 32.0-35.0 [facility] Comment on above: Order Comment: RIGHT BICEP Performed By: #### 3 0313 #### [facility] [address] [place] [address], [facility] MCV (RBC) [Entitic vol] 103.6 fL High 82.0-98.0 [facility] Comment on above: Order Comment: RIGHT BICEP Performed By: #### 3 0313 #### [facility] [address] [facility] [place] [address], [facility] METAMYELO 1.9 % High 0.0-0.0 [facility] Comment on above: Order Comment: RIGHT BICEP Performed By: #### 3 0313 #### [facility] [address] [place] [address], [facility] Monocytes (Bld) [#/Vol] 0.7 10*3/uL Normal 0.1-1.0 [facility] Comment on above: Order Comment: RIGHT BICEP Performed By: #### 3 0313 #### [facility] [address] [place] [address], [facility] MONOS 12.5 % High 5.0-12.0 [facility] Comment on above: Order Comment: RIGHT BICEP Performed By: #### 3 0313 #### [facility] [address] [place] [address], [facility] MYELOS 1.0 % High 0.0-0.0 [facility] Comment on above: Order Comment: RIGHT BICEP Performed By: #### 3 3 #### [facility] [address] [place] [address], [facility] Neutrophils/100 WBC (Bld) 76.9 % High 40.0-72.0 [facility] Comment on above: Order Comment: RIGHT BICEP Performed By: #### 3 0313 #### [facility] [address] [place] [address], [facility] Nucleated RBC/100 WBC (Bld) [Ratio] 1 % High 0-0 [facility] Comment on above: Order Comment: RIGHT BICEP Performed By: #### 3 0313 #### [facility] [address] [place] [address], [facility] PLAT CNT 122 10*3/uL Low 150-400 [facility] Comment on above: Order Comment: RIGHT BICEP Performed By: #### 3 0313 #### [facility] [address] [place] [address], [facility] POIK Slight Normal [facility] Comment on above: Order Comment: RIGHT BICEP Performed By: #### 3 3 #### [facility] [address] [place] [address], [facility] RBC (Bld) [#/Vol] 2.47 10*6/uL Low 4.20-5.70 [facility] Comment on above: Order Comment: RIGHT BICEP Performed By: #### 3 0313 #### [facility] [address] [place] [address], [place] WBC (Bld) [#/Vol] 5.62 10*3/uL Normal 4.00-10.60 [facility] Comment on above: Order Comment: RIGHT BICEP Performed By: #### 3 0313 #### [facility] [address] [place] [address], [facility] COMP METABOLIC PANELon 11-21 Albumin [Mass/Vol] 3.3 g/dL Low 3.5-5.7 [facility] Comment on above: Order Comment: No: D o not add to previous draw Performed By: #### 8 6001 #### [facility] [address] [place] [address], [place] ALKALINE PHOSPH 36 IU/L Normal 34-104 [facility] Comment on above: Order Comment: No: D o not add to previous draw Performed By: #### 8 6001 #### [facility] [address] [place] [address], [place] ALT [Catalytic activity/Vol] 46 U/L Normal 7-52 [facility] Comment on above: Order Comment: No: D o not add to previous draw Performed By: #### 8 6001 #### [facility] [address] [place] [address], [place] AST [Catalytic activity/Vol] 24 U/L Normal 13-39 [facility] Comment on above: Order Comment: No: D o not add to previous draw Performed By: #### 8 6001 #### [facility] [address] [place] [address], [place] Bilirubin [Mass/Vol] 1.0 mg/dL Normal 0.3-1.0 [facility] Comment on above: Order Comment: No: D o not add to previous draw Performed By: #### 8 6001 #### [facility] [address] [place] [address], [facility] Calcium [Mass/Vol] 8.4 mg/dL Low 8.6-10.3 [facility] Comment on above: Order Comment: No: D o not add to previous draw Performed By: #### 8 6001 #### [facility] [address] [place] [address], [place] Chloride [Moles/Vol] 103 mmol/L Normal 98-107 [facility] Comment on above: Order Comment: No: D o not add to previous draw Performed By: #### 8 6001 #### [facility] [address] [place] [address], [place] CO2 [Moles/Vol] 31 mmol/L Normal 21-31 [facility] Comment on above: Order Comment: No: D o not add to previous draw Performed By: #### 8 6001 #### [facility] [address] [place] [address], [facility] Creatinine [Mass/Vol] 2.18 mg/dL High 0.70-1.30 [facility] Comment on above: Order Comment: No: D o not add to previous draw Performed By: #### 8 6001 #### [facility] [address] [place] [address], [place] eGFR- 35 ml/min/1.73sq m Abnormal >60 [facility] Comment on above: Order Comment: No: D o not add to previous draw Result Comment: Calc ulation may not be valid for patients over 70 years Performed By: #### 8 6001 #### [facility] [address] [place] [address], [facility] eGFR- non- 29 ml/min/1.73sq m Abnormal >60 [facility] Comment on above: Order Comment: No: D o not add to previous draw Result Comment: Calc ulation may not be valid for patients over 70 years Performed By: #### 8 6001 #### [facility] [address] [place] [address], [place] Glucose [Mass/Vol] 140 mg/dL High 70-100 [facility] Comment on above: Order Comment: No: D o not add to previous draw Performed By: #### 8 6001 #### [facility] [address] [place] [address], [place] Potassium [Moles/Vol] 3.3 mmol/L Low 3.5-5.1 [facility] Comment on above: Order Comment: No: D o not add to previous draw Performed By: #### 8 6001 #### [facility] [address] [place] [address], [place] Protein [Mass/Vol] 5.9 g/dL Low 6.0-8.3 [facility] Comment on above: Order Comment: No: D o not add to previous draw Performed By: #### 8 6001 #### [facility] [address] [place] [address], [place] Sodium [Moles/Vol] 143 mmol/L Normal 136-145 [facility] Comment on above: Order Comment: No: D o not add to previous draw Performed By: #### 8 6001 #### [facility] [address] [place] [address], [place] Urea nitrogen [Mass/Vol] 58 mg/dL High 7-25 [facility] Comment on above: Order Comment: No: D o not add to previous draw Performed By: #### 8 6001 #### [facility] [address] [place] [address], [place] FOLATE SERUMon 11-21-2021 SERUM FOLATE 4.85 ng/mL Low 6.60-1000.00 [facility] Comment on above: Result Comment: Norm al range reflects World Health Organization International Standard Performed By: #### 1 0070, 02512, 73780, 93522 ####[facility] [place] [address], [facility] HEMATOCRITon 11-21-2021 Hematocrit (Bld) [Volume fraction] 25.6 % Low 39.0-50.0 [facility] Comment on above: Order Comment: pleas e start lab draw at 5pm followed by q12 at 5am tomorrow No: Do not add to previous draw Performed By: #### 9 2088 #### [facility] [address] [place] [address], [facility] HEMOGLOBINon 11-21-2021 Hemoglobin (Bld) [Mass/Vol] 8.8 g/dL Low 13.0-17.0 [facility] Comment on above: Order Comment: pleas e start lab draw at 5pm followed by q12 at 5am tomorrow No: Do not add to previous draw Performed By: #### 9 2088 #### [facility] [address] [place] [address], [facility] Hemoglobin (Bld) [Mass/Vol] 8.5 g/dL Low 13.0-17.0 [facility] Comment on above: Order Comment: pleas e start lab draw at 5pm followed by q12 at 5am tomorrow No: Do not add to previous draw Performed By: #### 9 2088 #### [facility] [address] [place] [id number], [facility] MAGNESIUM BLOODon 11-21-2021 Magnesium [Mass/Vol] 2.2 mg/dL Normal 1.9-2.7 [facility] Comment on above: Order Comment: No: D o not add to previous draw Performed By: #### 8 6001 #### [facility] [address] [place] [address], [facility] POC GLUCOSE LABon 11-21-2021 Glucose [Mass/Vol] 135 mg/dL High 70-100 [facility] Comment on above: Performed By: #### 8 5499 #### [facility] [address] [place] [address], [facility] Glucose [Mass/Vol] 142 mg/dL High 70-100 [facility] Comment on above: Performed By: #### 8 5499 #### [facility] [address] UFH HEPARIN ASSAYon 11-22-19 UNFRACTIONATED HEPARIN 0.41 IU/mL Normal 0.30-0.70 [facility] Comment on above: Result Comment: [place] roxaban and Apixaban will interfere with the anti Xa assay used to monitor UFH and LMWH. Performed By: #### 3 0477 #### [facility] [address] [place] [address], [facility] VITAMIN B12on 11-21-2021 Cobalamin (Vitamin B12) [Mass/Vol] 422 pg/mL Normal 180-914 [facility] Comment on above: Result Comment: REFE RENCE RANGES: 180-914 pg/mL Normal 145-179 pg/mL Indeterminate <145 pg/mL Deficient Performed By: #### 1 0070, 99180, 03376, 44903 ####[facility] BASIC METABOLIC PANELon 10-27 Calcium [Mass/Vol] 8.4 mg/dL Low 8.6-10.3 [facility] Comment on above: Order Comment: No: D o not add to previous draw Performed By: #### 3 0477 #### [facility] [address] [place] [address], [facility] Chloride [Moles/Vol] 104 mmol/L Normal 98-107 [facility] Comment on above: Order Comment: No: D o not add to previous draw Performed By: #### 3 0477 #### [facility] [address] [place] [address], [place] CO2 [Moles/Vol] 31 mmol/L Normal 21-31 [facility] Comment on above: Order Comment: No: D o not add to previous draw Performed By: #### 3 0477 #### [facility] [address] [place] [address], [place] Creatinine [Mass/Vol] 2.22 mg/dL High 0.70-1.30 [facility] Comment on above: Order Comment: No: D o not add to previous draw Performed By: #### 3 0477 #### [facility] [address] [place] [address], [place] eGFR- 34 ml/min/1.73sq m Abnormal >60 [facility] Comment on above: Order Comment: No: D o not add to previous draw Result Comment: Calc ulation may not be valid for patients over 70 years Performed By: #### 3 0477 #### [facility] [address] [place] [address], [place] eGFR- non- 28 ml/min/1.73sq m Abnormal >60 [facility] Comment on above: Order Comment: No: D o not add to previous draw Result Comment: Calc ulation may not be valid for patients over 70 years Performed By: #### 3 0477 #### [facility] [address] [place] [address], [place] Glucose [Mass/Vol] 139 mg/dL High 70-100 [facility] Comment on above: Order Comment: No: D o not add to previous draw Performed By: #### 3 0477 #### [facility] [address] [place] [address], [place] Potassium [Moles/Vol] 3.3 mmol/L Low 3.5-5.1 [facility] Comment on above: Order Comment: No: D o not add to previous draw Performed By: #### 3 0477 #### [facility] [address] Sodium [Moles/Vol] 143 mmol/L Normal 136-145 [facility] Comment on above: Order Comment: No: D o not add to previous draw Performed By: #### 3 0477 #### [facility] [address] [place] [address], [facility] Urea nitrogen [Mass/Vol] 49 mg/dL High 7-25 [facility] Comment on above: Order Comment: No: D o not add to previous draw Performed By: #### 3 7 #### [facility] [address] [place] [id number] CBC COMPLETE BLOOD COUNTon 11-20-2021 Hematocrit (Bld) [Volume fraction] 21.9 % Low 39.0-50.0 [facility] Comment on above: Order Comment: pleas e start lab draw at 5pm followed by q12 at 5am tomorrow No: Do not add to previous draw Performed By: #### 9 2088 #### [facility] [address] [place] [address], [facility] Hemoglobin (Bld) [Mass/Vol] 7.1 g/dL Low 13.0-17.0 [facility] Comment on above: Order Comment: pleas e start lab draw at 5pm followed by q12 at 5am tomorrow No: Do not add to previous draw Performed By: #### 9 2088 #### [facility] [address] [place] [address], [facility] IMM PLATELET FRAC 20.3 % High 0.8-6.3 [facility] Comment on above: Order Comment: pleas e start lab draw at 5pm followed by q12 at 5am tomorrow No: Do not add to previous draw Performed By: #### 9 2088 #### [facility] [address] [place] [address], [facility] MCH (RBC) [Entitic mass] 36.4 pg High 27.0-33.0 [facility] Comment on above: Order Comment: pleas e start lab draw at 5pm followed by q12 at 5am tomorrow No: Do not add to previous draw Performed By: #### 2088 #### [facility] [address] MCHC (RBC) [Mass/Vol] 32.4 g/dL Normal 32.0-35.0 [facility] Comment on above: Order Comment: pleas e start lab draw at 5pm followed by q12 at 5am tomorrow No: Do not add to previous draw Performed By: #### 2088 #### [facility] [address] [place] [address], [facility] MCV (RBC) [Entitic vol] 112.3 fL High 82.0-98.0 [facility] Comment on above: Order Comment: pleas e start lab draw at 5pm followed by q12 at 5am tomorrow No: Do not add to previous draw Performed By: #### 2088 #### [facility] [address] Nucleated RBC/100 WBC (Bld) [Ratio] 0 % Normal 0-0 [facility] Comment on above: Order Comment: pleas e start lab draw at 5pm followed by q12 at 5am tomorrow No: Do not add to previous draw Performed By: #### 2088 #### [facility] [address] [place] [address], [facility] PLAT CNT 91 10*3/uL Low 150-400 [facility] Comment on above: Order Comment: pleas e start lab draw at 5pm followed by q12 at 5am tomorrow No: Do not add to previous draw Performed By: #### 2088 #### [facility] [address] [place] [address], [facility] RBC (Bld) [#/Vol] 1.95 10*6/uL Low 4.20-5.70 [facility] Comment on above: Order Comment: pleas e start lab draw at 5pm followed by q12 at 5am tomorrow No: Do not add to previous draw Performed By: #### 2088 #### [facility] [address] [facility] [place] [address], [facility] RDW ---- Normal 11.5-15.0 [facility] Comment on above: Order Comment: pleas e start lab draw at 5pm followed by q12 at 5am tomorrow No: Do not add to previous draw Performed By: #### 2088 #### [facility] [address] [place] [address], [facility] WBC (Bld) [#/Vol] 8.30 10*3/uL Normal 4.00-10.60 [facility] Comment on above: Order Comment: pleas e start lab draw at 5pm followed by q12 at 5am tomorrow No: Do not add to previous draw Performed By: #### 2088 #### [facility] [address] [facility] [place] [address], [facility] HEMATOCRITon 11-20-2021 Hematocrit (Bld) [Volume fraction] 23.6 % Low 39.0-50.0 [facility] Comment on above: Order Comment: pleas e start lab draw at 5pm followed by q12 at 5am tomorrow No: Do not add to previous draw Performed By: #### 2088 #### [facility] [address] [place] [id number], [facility] HEMOGLOBINon 11-20-2021 Hemoglobin (Bld) [Mass/Vol] 7.8 g/dL Low 13.0-17.0 [facility] Comment on above: Order Comment: pleas e start lab draw at 5pm followed by q12 at 5am tomorrow No: Do not add to previous draw Performed By: #### 2088 #### [facility] [address] [place] [address], [facility] MAGNESIUM BLOODon 11-20-2021 Magnesium [Mass/Vol] 2.2 mg/dL Normal 1.9-2.7 [facility] Comment on above: Order Comment: No: D o not add to previous draw Performed By: #### 3 0477 #### [facility] [address] [place] [address], [facility] PHOSPHORUS BLOODon 2 Phosphate [Mass/Vol] 3.7 mg/dL Normal 2.5-5.0 [facility] Comment on above: Order Comment: No: D o not add to previous draw Performed By: #### 3 0477 #### [facility] [address] [place] [address], [facility] POC GLUCOSE LABon 11-20-2021 Glucose [Mass/Vol] 137 mg/dL High 70-100 [facility] Comment on above: Performed By: #### 3 0313 #### [facility] [address] [place] [address], [place] Glucose [Mass/Vol] 134 mg/dL High 70-100 [facility] Comment on above: Performed By: #### 3 2044 #### [facility] [address] [place] [address], [place] Glucose [Mass/Vol] 148 mg/dL High 70-100 [facility] Comment on above: Performed By: #### 8 5499 #### [facility] [address] [facility] [place] [address], [facility] RBC'S 1 UNITon 11-20-2021 CROSSMATCH INTERP 1 COMP Normal [facility] Comment on above: Performed By: #### 8 6001 #### [facility] [address] [place] [address], [facility] PRODUCT CODE 1 E0336 Normal [facility] Comment on above: Performed By: #### 8 6001 #### [facility] [address] [place] [address], [facility] PRODUCT STATUS 1 RE Normal [facility] Comment on above: Result Comment: Resu lt changed by IF on 11/21/2021 07:27. The previous value was XM. Performed By: #### 8 6001 #### [facility] [address] [place] [address], [facility] UNIT ABO 1 A Normal [facility] Comment on above: Performed By: #### 8 6001 #### [facility] [address] [place] [address], [facility] UNIT ID 1 [id number] Normal [facility] Comment on above: Performed By: #### 8 6001 #### [facility] [address] [place] [address], [facility] UNIT RH 1 Positive Normal [facility] Comment on above: Performed By: #### 8 6001 #### [facility] [address] [place] [address], [facility] RBC'S 2 UNITSon 11-20-2021 CROSSMATCH INTERP 1 COMP Normal [facility] Comment on above: Order Comment: Evalu ate for Cardiomegaly Performed By: #### 8 6002 ####[facility] [place] [address], [facility] CROSSMATCH INTERP 2 COMP Normal [facility] Comment on above: Order Comment: Evalu ate for Cardiomegaly Performed By: #### 8 6002 ####[facility] [place] [address], [facility] PRODUCT CODE 1 E0336 Normal [facility] Comment on above: Order Comment: Evalu ate for Cardiomegaly Performed By: #### 8 6002 ####[facility] [place] [address], [facility] PRODUCT CODE 2 E0336 Normal [facility] Comment on above: Order Comment: Evalu ate for Cardiomegaly Performed By: #### 8 6002 ####[facility] PRODUCT STATUS 1 PT Normal [facility] Comment on above: Order Comment: Evalu ate for Cardiomegaly Result Comment: Resu lt changed by IF on 11/20/2021 08:02. The previous value was XM. Result changed by IF on 11/21/2021 00:30. The previous value was IS. Performed By: #### 8 6002 ####[facility] [place] [address], [facility] PRODUCT STATUS 2 PT Normal [facility] Comment on above: Order Comment: Evalu ate for Cardiomegaly Result Comment: Resu lt changed by IF on 11/20/2021 19:00. The previous value was XX. Result changed by IF on 11/21/2021 00:30. The previous value was IS. Performed By: #### 8 6002 ####[facility] UNIT ABO 1 A Normal [facility] Comment on above: Order Comment: Evalu ate for Cardiomegaly Performed By: #### 8 6002 ####[facility] [place] [address], [facility] UNIT ABO 2 A Normal [facility] Comment on above: Order Comment: Evalu ate for Cardiomegaly Performed By: #### 8 6002 ####[facility] UNIT ID 1 [id number] Normal [facility] Comment on above: Order Comment: Evalu ate for Cardiomegaly Performed By: #### 8 6002 ####[facility] [place] [address], [facility] UNIT ID 2 [id number] Normal [facility] Comment on above: Order Comment: Evalu ate for Cardiomegaly Performed By: #### 8 6002 ####[facility] UNIT RH 1 Positive Normal [facility] Comment on above: Order Comment: Evalu ate for Cardiomegaly Performed By: #### 8 6002 ####[facility] [place] [address], [facility] UNIT RH 2 Positive Normal [facility] Comment on above: Order Comment: Evalu ate for Cardiomegaly Performed By: #### 8 6002 ####[facility] [facility].[address] UFH HEPARIN ASSAYon 11-21-19 UNFRACTIONATED HEPARIN 0.32 IU/mL Normal 0.30-0.70 [facility] Comment on above: Result Comment: [place] roxaban and Apixaban will interfere with the anti Xa assay used to monitor UFH and LMWH. Performed By: #### 3 0477 #### [facility] [address] [address] UNFRACTIONATED HEPARIN 0.36 IU/mL Normal 0.30-0.70 [facility] Comment on above: Result Comment: [place] roxaban and Apixaban will interfere with the anti Xa assay used to monitor UFH and LMWH. Performed By: #### 3 0477 #### [facility] [address] APTTon 11-19-2021 aPTT Coag (Bld) [Time] 32.7 s Normal 25.0-35.0 [facility] Comment on above: Order Comment: No: [...] PURPOSE. Performed By: #### 5 0103 #### [facility] [address] [address] BASIC METABOLIC PANELon 04-2 Calcium [Mass/Vol] 8.3 mg/dL Low 8.6-10.3 [facility] Comment on above: Order Comment: Evalu ate for Cardiomegaly Performed By: #### 1 0070, 13850, 04094 ####[facility] [place] [address], [facility] Chloride [Moles/Vol] 104 mmol/L Normal 98-107 [facility] Comment on above: Order Comment: Evalu ate for Cardiomegaly Performed By: #### 1 0070, 27512, 22863 ####[facility] [place] [address], [facility] CO2 [Moles/Vol] 24 mmol/L Normal 21-31 [facility] Comment on above: Order Comment: Evalu ate for Cardiomegaly Performed By: #### 1 0070, 75084, 42363 ####[facility] [place] [address], [facility] Creatinine [Mass/Vol] 2.03 mg/dL High 0.70-1.30 [facility] Comment on above: Order Comment: Evalu ate for Cardiomegaly Performed By: #### 1 0070, 08413, 57212 ####[facility] [facility].[address] eGFR- 38 ml/min/1.73sq m Abnormal >60 [facility] Comment on above: Order Comment: Evalu ate for Cardiomegaly Result Comment: Calc ulation may not be valid for patients over 70 years Performed By: #### 1 0070, 66916, 84233 ####[facility] [facility] [place] [address], [facility] eGFR- non- 32 ml/min/1.73sq m Abnormal >60 [facility] Comment on above: Order Comment: Evalu ate for Cardiomegaly Result Comment: Calc ulation may not be valid for patients over 70 years Performed By: #### 1 0070, 72346, 91112 ####[facility] [place] [address], [place] Glucose [Mass/Vol] 141 mg/dL High 70-100 [facility] Comment on above: Order Comment: Evalu ate for Cardiomegaly Performed By: #### 1 0070, 17587, 24315 ####[facility] [place] [address], [place] Potassium [Moles/Vol] 3.8 mmol/L Normal 3.5-5.1 [facility] Comment on above: Order Comment: Evalu ate for Cardiomegaly Performed By: #### 1 0070, 47419, 40778 ####[facility] [place] [address], [place] Sodium [Moles/Vol] 141 mmol/L Normal 136-145 [facility] Comment on above: Order Comment: Evalu ate for Cardiomegaly Performed By: #### 1 0070, 69231, 29945 ####[facility] [place] [address], [place] Urea nitrogen [Mass/Vol] 42 mg/dL High 7-25 [facility] Comment on above: Order Comment: Evalu ate for Cardiomegaly Performed By: #### 1 0, 91538, 94400 ####[facility] [place] [address], [place] CBC COMPLETE BLOOD COUNTon 0 11-19-2021 Hematocrit (Bld) [Volume fraction] 24.9 % Low 39.0-50.0 [facility] Comment on above: Order Comment: RIGHT BICEP Performed By: #### 3 0313 #### [facility] [address] [place] [address], [place] Hemoglobin (Bld) [Mass/Vol] 7.9 g/dL Low 13.0-17.0 [facility] Comment on above: Order Comment: RIGHT BICEP Performed By: #### 3 0313 #### [facility] [address] [place] [address], [facility] IMM PLATELET FRAC 19.8 % High 0.8-6.3 [facility] Comment on above: Order Comment: RIGHT BICEP Performed By: #### 3 0313 #### [facility] [address] [facility] [place] [address], [facility] MCH (RBC) [Entitic mass] 36.1 pg High 27.0-33.0 [facility] Comment on above: Order Comment: RIGHT BICEP Performed By: #### 3 0313 #### [facility] [address] [place] [address], [facility] MCHC (RBC) [Mass/Vol] 31.7 g/dL Low 32.0-35.0 [facility] Comment on above: Order Comment: RIGHT BICEP Performed By: #### 3 3 #### [facility] [address] [place] [address], [facility] MCV (RBC) [Entitic vol] 113.7 fL High 82.0-98.0 [facility] Comment on above: Order Comment: RIGHT BICEP Performed By: #### 3 3 #### [facility] [address] [place] [address], [facility] Nucleated RBC/100 WBC (Bld) [Ratio] 0 % Normal 0-0 [facility] Comment on above: Order Comment: RIGHT BICEP Performed By: #### 3 3 #### [facility] [address] [facility] [place] [address], [facility] PLAT CNT 73 10*3/uL Low 150-400 [facility] Comment on above: Order Comment: RIGHT BICEP Performed By: #### 3 3 #### [facility] [address] [place] [address], [place] RBC (Bld) [#/Vol] 2.19 10*6/uL Low 4.20-5.70 [facility] Comment on above: Order Comment: RIGHT BICEP Performed By: #### 3 0313 #### [facility] [address] [place] [address], [facility] RDW ---- Normal 11.5-15.0 [facility] Comment on above: Order Comment: RIGHT BICEP Performed By: #### 3 0313 #### [facility] [address] [place] [address], [facility] WBC (Bld) [#/Vol] 11.57 10*3/uL High 4.00-10.60 [facility] Comment on above: Order Comment: RIGHT BICEP Performed By: #### 3 0313 #### [facility] [address] [place] [address], [facility] MAGNESIUM BLOODon 11-19-2021 Magnesium [Mass/Vol] 2.0 mg/dL Normal 1.9-2.7 [facility] Comment on above: Order Comment: Evalu ate for Cardiomegaly Performed By: #### 1 0070, 22390, 10650 ####[facility] [place] [address], [facility] PHOSPHORUS BLOODon Phosphate [Mass/Vol] 3.3 mg/dL Normal 2.5-5.0 [facility] Comment on above: Order Comment: Evalu ate for Cardiomegaly Performed By: #### 1 0070, [id number], [id number] ####[facility] [place] [address], [facility] POC GLUCOSE LABon 11-19-2021 Glucose [Mass/Vol] 174 mg/dL High 70-100 [facility] Comment on above: Performed By: #### 3 4 #### [facility] [address] [place] [address], [place] Glucose [Mass/Vol] 183 mg/dL High 70-100 [facility] Comment on above: Performed By: #### 3 2044 #### [facility] [address] [place] [address], [facility] Glucose [Mass/Vol] 161 mg/dL High 70-100 [facility] Comment on above: Performed By: #### 3 2044 #### [facility] [address] TROPONIN-Ion 11-19-2021 Troponin I.cardiac [Mass/Vol] 2.17 ng/mL Critically high 0.00-0.04 [facility] Comment on above: Order Comment: Evalu ate for Cardiomegaly Result Comment: M-ME EVIOUS CRITICAL RESULT REFERENCE RANGES: 0.00 - 0.04 ng/ml NORMAL 0.05 - 0.50 ng/ml INDETERMINATE > 0.50 ng/ml CONSISTENT WITH AN M.I. Performed By: #### 3 5200 ####[facility] UFH HEPARIN ASSAYon 11-20-19 22 UNFRACTIONATED HEPARIN 0.15 IU/mL Critically low 0.30-0.70 [facility] Comment on above: Result Comment: RESU LTS CHECKED AND CALLED. ACCURATELY READ BACK BY GALA SEN RN AT 2055 Rivaroxaban and Apixaban will interfere with the anti Xa assay used to monitor UFH and LMWH. Performed By: #### 3 0007 #### [facility] [address] UNFRACTIONATED HEPARIN <0.10 Critically low 0.30-0.70 [facility] Comment on above: Result Comment: RESU LTS CHECKED AND CALLED. ACCURATELY READ BACK BY TIFF ROSSI RN AT 1316 Rivaroxaban and Apixaban will interfere with the anti Xa assay used to monitor UFH and LMWH. Performed By: #### 5 0103 #### [facility] [address] *BLOOD CULTUREon 11-18-2021 *BLOOD CULTURE Clinical Report: (D) Specimen: BLOOD CULTURE Collected: 11/18/2021 04:44 Status: Final Last Updated: 11/23/2021 08:16 (1) RIGHT BICEP CULT RES (Final) No Growth Day 5 Normal [facility] Comment on above: Order Comment: RIGHT BICEP Performed By: #### 3 0313 #### [facility] [address] *BLOOD CULTURE Clinical Report: (D) Specimen: BLOOD CULTURE Collected: 11/18/2021 04:44 Status: Final Last Updated: 11/23/2021 08:16 (1) LEFT AC CULT RES (Final) No Growth Day 5 Normal [facility] Comment on above: Order Comment: RIGHT BICEP Performed By: #### 3 0313 #### [facility] [address] *SPUTUM CULTUREon 11-18-2021 *SPUTUM CULTURE Clinical [...] 8/4 Susceptible TOBRAMYCIN (TOB) <=2 Susceptible Normal [facility] Comment on above: Order Comment: RIGHT BICEP Performed By: #### 3 0313 #### [facility] [address] APTTon 11-18-2021 aPTT Coag (Bld) [Time] 27.5 s Normal 25.0-35.0 [facility] Comment on above: Order Comment: No: [...] PURPOSE. Performed By: #### 5 0103 #### [facility] [address] [place] [address], [facility] aPTT Coag (Bld) [Time] 25.6 s Normal 25.0-35.0 [facility] Comment on above: Result Comment: ALL [...] PURPOSE. Performed By: #### 3 0477 #### [facility] [address] [place] [address], [facility] BASIC METABOLIC PANELon - Calcium [Mass/Vol] 8.5 mg/dL Low 8.6-10.3 [facility] Comment on above: Order Comment: No: D o not add to previous draw Performed By: #### 8 6001 #### [facility] [address] [place] [address], [facility] Chloride [Moles/Vol] 100 mmol/L Normal 98-107 [facility] Comment on above: Order Comment: No: D o not add to previous draw Performed By: #### 8 6001 #### [facility] [address] [place] [address], [facility] CO2 [Moles/Vol] 26 mmol/L Normal 21-31 [facility] Comment on above: Order Comment: No: D o not add to previous draw Performed By: #### 8 6001 #### [facility] [address] [place] [address], [place] Creatinine [Mass/Vol] 2.27 mg/dL High 0.70-1.30 [facility] Comment on above: Order Comment: No: D o not add to previous draw Performed By: #### 8 6001 #### [facility] [address] [place] [address], [place] eGFR- 34 ml/min/1.73sq m Abnormal >60 [facility] Comment on above: Order Comment: No: D o not add to previous draw Result Comment: Calc ulation may not be valid for patients over 70 years Performed By: #### 8 6001 #### [facility] [address] [place] [address], [place] eGFR- non- 28 ml/min/1.73sq m Abnormal >60 [facility] Comment on above: Order Comment: No: D o not add to previous draw Result Comment: Calc ulation may not be valid for patients over 70 years Performed By: #### 8 6001 #### [facility] [address] [place] [address], [place] Glucose [Mass/Vol] 162 mg/dL High 70-100 [facility] Comment on above: Order Comment: No: D o not add to previous draw Performed By: #### 8 6001 #### [facility] [address] [place] [address], [place] Potassium [Moles/Vol] 4.1 mmol/L Normal 3.5-5.1 [facility] Comment on above: Order Comment: No: D o not add to previous draw Performed By: #### 8 6001 #### [facility] [address] [place] [address], [place] Sodium [Moles/Vol] 140 mmol/L Normal 136-145 [facility] Comment on above: Order Comment: No: D o not add to previous draw Performed By: #### 8 6001 #### [facility] [address] Urea nitrogen [Mass/Vol] 38 mg/dL High 7-25 [facility] Comment on above: Order Comment: No: D o not add to previous draw Performed By: #### 8 6001 #### [facility] [address] CBC W/DIFFon 11-18-2021 ABS IMM GRANS 0.1 10*3/uL Normal 0.0-0.2 [facility] Comment on above: Order Comment: No: D o not add to previous draw Performed By: #### 5 0103 #### [facility] [address] ABS NEUTROPHILS 8.1 10*3/uL High 1.6-7.6 [facility] Comment on above: Order Comment: No: D o not add to previous draw Performed By: #### 5 0103 #### [facility] [address] ANISO Moderate Normal [facility] Comment on above: Order Comment: No: D o not add to previous draw Performed By: #### 5 0103 #### [facility] [address] Basophils (Bld) [#/Vol] 0.0 10*3/uL Normal 0.0-0.2 [facility] Comment on above: Order Comment: No: D o not add to previous draw Performed By: #### 5 0103 #### [facility] [address] [place] [address], [facility] Basophils/100 WBC (Bld) 0.2 % Normal 0.0-1.0 [facility] Comment on above: Order Comment: No: D o not add to previous draw Performed By: #### 5 0103 #### [facility] [address] [place] [address], [facility] Eosinophils (Bld) [#/Vol] 0.0 10*3/uL Normal 0.0-0.5 [facility] Comment on above: Order Comment: No: D o not add to previous draw Performed By: #### 5 0103 #### [facility] [address] [facility] [place] [address], [facility] Eosinophils/100 WBC (Bld) 0.0 % Normal 0.0-6.0 [facility] Comment on above: Order Comment: No: D o not add to previous draw Performed By: #### 5 0103 #### [facility] [address] [facility] Hematocrit (Bld) [Volume fraction] 22.5 % Low 39.0-50.0 [facility] Comment on above: Order Comment: No: D o not add to previous draw Performed By: #### 5 0103 #### [facility] [address] [facility]. [address] Hemoglobin (Bld) [Mass/Vol] 7.3 g/dL Low 13.0-17.0 [facility] Comment on above: Order Comment: No: D o not add to previous draw Performed By: #### 5 0103 #### [facility] [address] [place] [address], [facility] IMM PLATELET FRAC 19.9 % High 0.8-6.3 [facility] Comment on above: Order Comment: No: D o not add to previous draw Performed By: #### 5 0103 #### [facility] [address] [facility] [place] [address], [facility] IMMATURE GRANS 0.8 % Normal 0.0-1.0 [facility] Comment on above: Order Comment: No: D o not add to previous draw Performed By: #### 5 0103 #### [facility] [address] [place] [address], [facility] Lymphocytes (Bld) [#/Vol] 0.6 10*3/uL Low 1.2-4.0 [facility] Comment on above: Order Comment: No: D o not add to previous draw Performed By: #### 5 0103 #### [facility] [address] [place] [id number], [facility] Lymphocytes/100 WBC (Bld) 5.3 % Low 20.0-45.0 [facility] Comment on above: Order Comment: No: D o not add to previous draw Performed By: #### 5 0103 #### [facility] [address] [place] [address], [facility] MACRO Slight Normal [facility] Comment on above: Order Comment: No: D o not add to previous draw Performed By: #### 5 0103 #### [facility] [address] [place] [id number], [facility] MCH (RBC) [Entitic mass] 35.4 pg High 27.0-33.0 [facility] Comment on above: Order Comment: No: D o not add to previous draw Performed By: #### 5 0103 #### [facility] [address] [facility] [place] [id number], [facility] MCHC (RBC) [Mass/Vol] 32.4 g/dL Normal 32.0-35.0 [facility] Comment on above: Order Comment: No: D o not add to previous draw Performed By: #### 5 0103 #### [facility] [address] [place] [address], [facility] MCV (RBC) [Entitic vol] 109.2 fL High 82.0-98.0 [facility] Comment on above: Order Comment: No: D o not add to previous draw Performed By: #### 5 0103 #### [facility] [address] [facility] [place] [id number], [facility] Monocytes (Bld) [#/Vol] 2.3 10*3/uL High 0.1-1.0 [facility] Comment on above: Order Comment: No: D o not add to previous draw Performed By: #### 5 0103 #### [facility] [address] [place] [address], [facility] MONOS 20.6 % High 5.0-12.0 [facility] Comment on above: Order Comment: No: D o not add to previous draw Performed By: #### 5 0103 #### [facility] [address] [facility] [place] [id number], [facility] Neutrophils/100 WBC (Bld) 73.1 % High 40.0-72.0 [facility] Comment on above: Order Comment: No: D o not add to previous draw Performed By: #### 5 0103 #### [facility] [address] [facility] [place] [id number], [facility] Nucleated RBC/100 WBC (Bld) [Ratio] 0 % Normal 0-0 [facility] Comment on above: Order Comment: No: D o not add to previous draw Performed By: #### 5 0103 #### [facility] [address] [place] [address], [facility] OTHER 1 2 red cell populations Normal Th e [facility] Comment on above: Order Comment: No: D o not add to previous draw Performed By: #### 5 0103 #### [facility] [address] [place] [address], [facility] PLAT CNT 53 10*3/uL Low 150-400 [facility] Comment on above: Order Comment: No: D o not add to previous draw Performed By: #### 5 3 #### [facility] [address] [place] [address], [facility] POIK Slight Normal [facility] Comment on above: Order Comment: No: D o not add to previous draw Performed By: #### 5 0103 #### [facility] [address] [place] [address], [facility] POLY Slight Normal [facility] Comment on above: Order Comment: No: D o not add to previous draw Performed By: #### 5 0103 #### [facility] [address] [place] [id number], [facility] RBC (Bld) [#/Vol] 2.06 10*6/uL Low 4.20-5.70 [facility] Comment on above: Order Comment: No: D o not add to previous draw Performed By: #### 5 0103 #### [facility] [address] [place] [address], [facility] RDW ---- Normal 11.5-15.0 [facility] Comment on above: Order Comment: No: D o not add to previous draw Performed By: #### 5 0103 #### [facility] [address] [place] [address], [facility] WBC (Bld) [#/Vol] 11.14 10*3/uL High 4.00-10.60 [facility] Comment on above: Order Comment: No: D o not add to previous draw Performed By: #### 5 0103 #### [facility] [address] [place] [address], [facility] ABS IMM GRANS 0.1 10*3/uL Normal 0.0-0.2 [facility] Comment on above: Performed By: #### 3 0313 #### [facility] [address] [place] [address], [facility] ABS NEUTROPHILS 8.0 10*3/uL High 1.6-7.6 [facility] Comment on above: Performed By: #### 3 0313 #### [facility] [address] [place] [address], [facility] ANISO Moderate Normal [facility] Comment on above: Performed By: #### 3 0313 #### [facility] [address] [place] [address], [facility] Basophils (Bld) [#/Vol] 0.0 10*3/uL Normal 0.0-0.2 [facility] Comment on above: Performed By: #### 3 0313 #### [facility] [address] [place] [address], [facility] Basophils/100 WBC (Bld) 0.2 % Normal 0.0-1.0 [facility] Comment on above: Performed By: #### 3 0313 #### [facility] [address] [place] [address], [facility] Eosinophils (Bld) [#/Vol] 0.0 10*3/uL Normal 0.0-0.5 [facility] Comment on above: Performed By: #### 3 0313 #### [facility] [address] [place] [address], [facility] Eosinophils/100 WBC (Bld) 0.1 % Normal 0.0-6.0 [facility] Comment on above: Performed By: #### 3 0313 #### [facility] [address] [place] [id number], [facility] Hematocrit (Bld) [Volume fraction] 21.7 % Low 39.0-50.0 [facility] Comment on above: Performed By: #### 3 0313 #### [facility] [address] [place] [address], [facility] Hemoglobin (Bld) [Mass/Vol] 7.1 g/dL Low 13.0-17.0 [facility] Comment on above: Performed By: #### 3 0313 #### [facility] [address] [place] [address], [facility] IMM PLATELET FRAC 19.7 % High 0.8-6.3 [facility] Comment on above: Performed By: #### 3 0313 #### [facility] [address] [facility] [place] [address] IMMATURE GRANS 1.2 % High 0.0-1.0 [facility] Comment on above: Performed By: #### 3 0313 #### [facility] [address] Lymphocytes (Bld) [#/Vol] 0.6 10*3/uL Low 1.2-4.0 [facility] Comment on above: Performed By: #### 3 0313 #### [facility] [address] Lymphocytes/100 WBC (Bld) 5.0 % Low 20.0-45.0 [facility] Comment on above: Performed By: #### 3 0313 #### [facility] [address] MACRO Slight Normal [facility] Comment on above: Performed By: #### 3 0313 #### [facility] [address] MCH (RBC) [Entitic mass] 36.0 pg High 27.0-33.0 [facility] Comment on above: Performed By: #### 3 0313 #### [facility] [address] MCHC (RBC) [Mass/Vol] 32.7 g/dL Normal 32.0-35.0 [facility] Comment on above: Performed By: #### 3 0313 #### [facility] [address] MCV (RBC) [Entitic vol] 110.2 fL High 82.0-98.0 [facility] Comment on above: Performed By: #### 3 0313 #### [facility] [address] [place] [address], [facility] Monocytes (Bld) [#/Vol] 2.3 10*3/uL High 0.1-1.0 [facility] Comment on above: Performed By: #### 3 3 #### [facility] [address] [place] [address], [facility] MONOS 20.6 % High 5.0-12.0 [facility] Comment on above: Performed By: #### 3 3 #### [facility] [address] [place] [address], [facility] Neutrophils/100 WBC (Bld) 72.9 % High 40.0-72.0 [facility] Comment on above: Performed By: #### 3 3 #### [facility] [address] [place] [id number], [facility] Nucleated RBC/100 WBC (Bld) [Ratio] 0 % Normal 0-0 [facility] Comment on above: Performed By: #### 3 3 #### [facility] [address] [facility] [place] [address], [facility] OTHER 1 2 cell populations Normal [facility] Comment on above: Performed By: #### 3 3 #### [facility] [address] [place] [address], [facility] PLAT CNT 48 10*3/uL Low 150-400 [facility] Comment on above: Performed By: #### 3 3 #### [facility] [address] [facility] [place] [address], [facility] POLY Slight Normal [facility] Comment on above: Performed By: #### 3 0313 #### [facility] [address] [place] [address], [facility] RBC (Bld) [#/Vol] 1.97 10*6/uL Low 4.20-5.70 [facility] Comment on above: Performed By: #### 3 3 #### [facility] [address] [place] [address], [facility] RDW ---- Normal 11.5-15.0 [facility] Comment on above: Performed By: #### 3 0313 #### [facility] [address] [place] [address], [facility] WBC (Bld) [#/Vol] 11.02 10*3/uL High 4.00-10.60 [facility] Comment on above: Performed By: #### 3 0313 #### [facility] [address] [place] [address], [facility] COMP METABOLIC PANELon 11-18 Albumin [Mass/Vol] 3.8 g/dL Normal 3.5-5.7 [facility] Comment on above: Order Comment: No: D o not add to previous draw Performed By: #### 8 6001 #### [facility] [address] [place] [address], [place] ALKALINE PHOSPH 42 IU/L Normal 34-104 [facility] Comment on above: Order Comment: No: D o not add to previous draw Performed By: #### 8 6001 #### [facility] [address] [place] [address], [place] ALT [Catalytic activity/Vol] 48 U/L Normal 7-52 [facility] Comment on above: Order Comment: No: D o not add to previous draw Performed By: #### 8 6001 #### [facility] [address] [place] [address], [place] AST [Catalytic activity/Vol] 47 U/L High 13-39 [facility] Comment on above: Order Comment: No: D o not add to previous draw Performed By: #### 8 6001 #### [facility] [address] [place] [address], [place] Bilirubin [Mass/Vol] 1.4 mg/dL High 0.3-1.0 [facility] Comment on above: Order Comment: No: D o not add to previous draw Performed By: #### 8 6001 #### [facility] [address] [place] [address], [place] Calcium [Mass/Vol] 8.7 mg/dL Normal 8.6-10.3 [facility] Comment on above: Order Comment: No: D o not add to previous draw Performed By: #### 8 6001 #### [facility] [address] [place] [address], [place] Chloride [Moles/Vol] 103 mmol/L Normal 98-107 [facility] Comment on above: Order Comment: No: D o not add to previous draw Performed By: #### 8 6001 #### [facility] [address] [place] [address], [place] CO2 [Moles/Vol] 27 mmol/L Normal 21-31 [facility] Comment on above: Order Comment: No: D o not add to previous draw Performed By: #### 8 6001 #### [facility] [address] [place] [address], [place] Creatinine [Mass/Vol] 2.44 mg/dL High 0.70-1.30 [facility] Comment on above: Order Comment: No: D o not add to previous draw Performed By: #### 8 6001 #### [facility] [address] [place] [address], [facility] eGFR- 31 ml/min/1.73sq m Abnormal >60 [facility] Comment on above: Order Comment: No: D o not add to previous draw Result Comment: Calc ulation may not be valid for patients over 70 years Performed By: #### 8 6001 #### [facility] [address] [place] [address], [facility] eGFR- non- 26 ml/min/1.73sq m Abnormal >60 [facility] Comment on above: Order Comment: No: D o not add to previous draw Result Comment: Calc ulation may not be valid for patients over 70 years Performed By: #### 8 6001 #### [facility] [address] [place] [address], [place] Glucose [Mass/Vol] 128 mg/dL High 70-100 [facility] Comment on above: Order Comment: No: D o not add to previous draw Performed By: #### 8 6001 #### [facility] [address] [place] [address], [place] Potassium [Moles/Vol] 4.0 mmol/L Normal 3.5-5.1 [facility] Comment on above: Order Comment: No: D o not add to previous draw Performed By: #### 8 6001 #### [facility] [address] [place] [address], [place] Protein [Mass/Vol] 6.1 g/dL Normal 6.0-8.3 [facility] Comment on above: Order Comment: No: D o not add to previous draw Performed By: #### 8 6001 #### [facility] [address] [place] [address], [place] Sodium [Moles/Vol] 139 mmol/L Normal 136-145 [facility] Comment on above: Order Comment: No: D o not add to previous draw Performed By: #### 8 6001 #### [facility] [address] [place] [address], [place] Urea nitrogen [Mass/Vol] 34 mg/dL High 7-25 [facility] Comment on above: Order Comment: No: D o not add to previous draw Performed By: #### 8 6001 #### [facility] [address] [place] [address], [place] MAGNESIUM BLOODon 11-18-2021 Magnesium [Mass/Vol] 2.2 mg/dL Normal 1.9-2.7 [facility] Comment on above: Order Comment: No: D o not add to previous draw Performed By: #### 8 6001 #### [facility] [address] [place] [address], [facility] PHOSPHORUS BLOODon 2 Phosphate [Mass/Vol] 3.5 mg/dL Normal 2.5-5.0 [facility] Comment on above: Order Comment: No: D o not add to previous draw Performed By: #### 8 6001 #### [facility] [address] [place] [address], [facility] POC GLUCOSE LABon 11-18-2021 Glucose [Mass/Vol] 171 mg/dL High 70-100 [facility] Comment on above: Performed By: #### 3 2044 #### [facility] [address] [place] [address], [facility] Glucose [Mass/Vol] 169 mg/dL High 70-100 [facility] Comment on above: Performed By: #### 8 5499 #### [facility] [address] [place] [address], [facility] POC SARS COV2 ANTIGEN NEGATI VEon 11-18-2021 POC SARS COV2 ANTIGEN NEG Negative Normal NEGATIVE [facility] Comment on above: Result Comment: Nega [...] antigen from SARS-CoV-2 in direct nasopharyngeal swab (BENEFITS ADMINISTRATOR) specimens from individuals who are suspected of [...] Accreditation. Performed By: #### 3 2044 #### [facility] [address] PROCALCITONINon 11-18-2021 PROCALCITONIN 7.09 ng/mL Critically high 0.00-0.10 [facility] Comment on above: Order Comment: No: [...] RN Performed By: #### 5 0103 #### [facility] [address] [place] [address], [facility] PROTHROMBIN TIMEon 04-24-202 2 INR Coag (PPP) [Relative time] 1.31 {INR} High 0.91-1.16 [facility] Comment on above: Order Comment: No: D o not add to previous draw Result Comment: [facility] P RECOMMENDED INR FOR WARFARIN THERAPY ------ [...] 1995;108:231S-246S. Performed By: #### 5 0103 #### [facility] [address] [place] [address], [facility] PT Coag (PPP) [Time] 16.3 s High 12.3-14.8 [facility] Comment on above: Order Comment: No: D o not add to previous draw Result Comment: ALL RESULTS MUST BE INTERPRETED WITH RESPECT TO BLOOD DRAWING ARTIFACT OR DILUTION ERROR OF ANTICOAGULANT AT THE TIME OF SAMPLING. Performed By: #### 5 0103 #### [facility] [address] [place] [address], [facility] INR Coag (PPP) [Relative time] 1.35 {INR} High 0.91-1.16 [facility] Comment on above: Result Comment: [facility] P RECOMMENDED INR FOR WARFARIN THERAPY ------ [...] 1995;108:231S-246S. Performed By: #### 3 0477 #### [facility] [address] [facility] PT Coag (PPP) [Time] 16.7 s High 12.3-14.8 [facility] Comment on above: Result Comment: ALL RESULTS MUST BE INTERPRETED WITH RESPECT TO BLOOD DRAWING ARTIFACT OR DILUTION ERROR OF ANTICOAGULANT AT THE TIME OF SAMPLING. Performed By: #### 3 0477 #### [facility] [address] [facility]. [address] RBC'S 1 UNITon 11-18-2021 CROSSMATCH INTERP 1 COMP Normal [facility] Comment on above: Performed By: #### 8 6001 ####[facility] [facility] PRODUCT CODE 1 E0336 Normal [facility] Comment on above: Performed By: #### 8 6001 ####[facility] PRODUCT STATUS 1 PT Normal [facility] Comment on above: Result Comment: Resu lt changed by IF on 11/18/2021 02:27. The previous value was XX. Result changed by IF on 11/19/2021 00:30. The previous value was IS. Performed By: #### 8 6001 ####[facility] [place] [address], [facility] UNIT ABO 1 A Normal [facility] Comment on above: Performed By: #### 8 6001 ####[facility] [place] [address], [facility] UNIT ID 1 [id number] Normal [facility] Comment on above: Performed By: #### 8 6001 ####[facility] [place] [address], [facility] UNIT RH 1 Positive Normal [facility] Comment on above: Performed By: #### 8 6001 ####[facility] [place] [address], [facility] TROPONIN-Ion 11-18-2021 Troponin I.cardiac [Mass/Vol] 2.11 ng/mL Critically high 0.00-0.04 [facility] Comment on above: Order Comment: No: D o not add to previous draw Result Comment: M-ME EVIOUS CRITICAL RESULT REFERENCE RANGES: 0.00 - 0.04 ng/ml NORMAL 0.05 - 0.50 ng/ml INDETERMINATE > 0.50 ng/ml CONSISTENT WITH AN M.I. Performed By: #### 8 6001 #### [facility] [address] [place] [address], [facility] Troponin I.cardiac [Mass/Vol] 1.88 ng/mL Critically high 0.00-0.04 [facility] Comment on above: Order Comment: No: D o not add to previous draw Result Comment: M-ME EVIOUS CRITICAL RESULT REFERENCE RANGES: 0.00 - 0.04 ng/ml NORMAL 0.05 - 0.50 ng/ml INDETERMINATE > 0.50 ng/ml CONSISTENT WITH AN M.I. Performed By: #### 8 6001 #### [facility] [address] [place] [address], [facility] Troponin I.cardiac [Mass/Vol] 1.38 ng/mL Critically high 0.00-0.04 [facility] Comment on above: Order Comment: No: D o not add to previous draw Result Comment: M-ME EVIOUS CRITICAL RESULT REFERENCE RANGES: 0.00 - 0.04 ng/ml NORMAL 0.05 - 0.50 ng/ml INDETERMINATE > 0.50 ng/ml CONSISTENT WITH AN M.I. Performed By: #### 3 5200 ####[facility] Troponin I.cardiac [Mass/Vol] 2.00 ng/mL Critically high 0.00-0.04 [facility] Comment on above: Result Comment: M-ME EVIOUS CRITICAL RESULT REFERENCE RANGES: 0.00 - 0.04 ng/ml NORMAL 0.05 - 0.50 ng/ml INDETERMINATE > 0.50 ng/ml CONSISTENT WITH AN M.I. Performed By: #### 8 6001 #### [facility] [address] Troponin I.cardiac [Mass/Vol] 1.90 ng/mL Critically high 0.00-0.04 [facility] Comment on above: Result Comment: M-ME EVIOUS CRITICAL RESULT REFERENCE RANGES: 0.00 - 0.04 ng/ml NORMAL 0.05 - 0.50 ng/ml INDETERMINATE > 0.50 ng/ml CONSISTENT WITH AN M.I. Performed By: #### 3 5200 ####[facility] [facility].[address] VENOUS BLOOD GASon 2 BASE EXCESS 4 mmol/L Normal [facility] Comment on above: Performed By: #### 5 0103 #### [facility] [address] [place] [address], [facility] DELIVERY SYSTEMS V60 Normal [facility] Comment on above: Performed By: #### 5 0103 #### [facility] [address] [place] [address], [facility] HCO3 (Bld) [Moles/Vol] 29 mmol/L Normal [facility] Comment on above: Performed By: #### 5 0103 #### [facility] [address] [place] [address], [facility] MODALITY BIPAP 14/6 Normal [facility] Comment on above: Performed By: #### 5 0103 #### [facility] [address] [place] [address], [facility] Oxygen (Bld) [Partial pressure] 30 mm[Hg] Low 35-45 [facility] Comment on above: Performed By: #### 5 0103 #### [facility] [address] [facility] Oxygen saturation in Blood 37.1 % Low 65.0-75.0 [facility] Comment on above: Performed By: #### 5 0103 #### [facility] [address] [place] [address], [facility] PCO2 44 mmHg Normal [facility] Comment on above: Performed By: #### 5 0103 #### [facility] [address] [place] [address], [facility] pH (Bld) 7.43 [pH] High 7.31-7.41 [facility] Comment on above: Performed By: #### 5 0103 #### [facility] [address] APTTon 11-17-2021 aPTT Coag (Bld) [Time] 30.1 s Normal 25.0-35.0 [facility] Comment on above: Result Comment: ALL [...] PURPOSE. Performed By: #### 5 0103 #### [facility] [address] [place] [address], [facility] BASIC METABOLIC PANELon 04-2 Calcium [Mass/Vol] 8.6 mg/dL Normal 8.6-10.3 [facility] Comment on above: Performed By: #### 1 0070, 62526, 86477 ####[facility] [place] [address], [place] Chloride [Moles/Vol] 99 mmol/L Normal 98-107 [facility] Comment on above: Performed By: #### 1 0070, 05158, 98870 ####[facility] [place] [address], [place] CO2 [Moles/Vol] 26 mmol/L Normal 21-31 [facility] Comment on above: Performed By: #### 1 0070, 49636, 72474 ####[facility] [id number], [facility] Creatinine [Mass/Vol] 2.68 mg/dL High 0.70-1.30 [facility] Comment on above: Performed By: #### 1 0070, 46748, 92355 ####[facility] [place] [address], [facility] eGFR- 28 ml/min/1.73sq m Abnormal >60 [facility] Comment on above: Result Comment: Calc ulation may not be valid for patients over 70 years Performed By: #### 1 0070, 17113, 61343 ####[facility] [place] [address], [place] eGFR- non- 23 ml/min/1.73sq m Abnormal >60 [facility] Comment on above: Result Comment: Calc ulation may not be valid for patients over 70 years Performed By: #### 1 0070, 65071, 50488 ####[facility] [place] [address], [facility] Glucose [Mass/Vol] 185 mg/dL High 70-100 [facility] Comment on above: Performed By: #### 1 0070, 09563, 34108 ####[facility] [place] [address], [facility] Potassium [Moles/Vol] 4.0 mmol/L Normal 3.5-5.1 [facility] Comment on above: Performed By: #### 1 0070, 90259, 25459 ####[facility] [facility].[address] Sodium [Moles/Vol] 140 mmol/L Normal 136-145 [facility] Comment on above: Performed By: #### 1 0070, 15941, 21128 ####[facility] [facility].[address] Urea nitrogen [Mass/Vol] 34 mg/dL High 7-25 [facility] Comment on above: Performed By: #### 1 0070, 66049, 98983 ####[facility] [facility].[address] BNP EDon 11-17-2021 Natriuretic peptide B (Bld) [Mass/Vol] 1081 pg/mL High 0-100 [facility] Comment on above: Result Comment: Give n the appropriate clinical setting a BNP result of >100 pg/mL indicates congestive heart failure. Performed By: #### 8 6001 #### [facility] [address] [place] [address], [facility] CBC W/DIFFon 11-17-2021 ABS IMM GRANS 0.2 10*3/uL Normal 0.0-0.2 [facility] Comment on above: Performed By: #### 3 0313 #### [facility] [address] [place] [address], [facility] ABS NEUTROPHILS 9.3 10*3/uL High 1.6-7.6 [facility] Comment on above: Performed By: #### 3 3 #### [facility] [address] [facility]. [address] ANISO Moderate Normal [facility] Comment on above: Performed By: #### 3 3 #### [facility] [address] [place] [address], [facility] Basophils (Bld) [#/Vol] 0.0 10*3/uL Normal 0.0-0.2 [facility] Comment on above: Performed By: #### 3 3 #### [facility] [address] Basophils/100 WBC (Bld) 0.2 % Normal 0.0-1.0 [facility] Comment on above: Performed By: #### 3 3 #### [facility] [address] Eosinophils (Bld) [#/Vol] 0.0 10*3/uL Normal 0.0-0.5 [facility] Comment on above: Performed By: #### 3 3 #### [facility] [address] [place] [address], [facility] Eosinophils/100 WBC (Bld) 0.0 % Normal 0.0-6.0 [facility] Comment on above: Performed By: #### 3 3 #### [facility] [address] Erythrocyte distribution width (RBC) [Ratio] 21.6 % High 11.5-15.0 [facility] Comment on above: Performed By: #### 3 3 #### [facility] [address] Hematocrit (Bld) [Volume fraction] 20.1 % Low 39.0-50.0 [facility] Comment on above: Performed By: #### 3 3 #### [facility] [address] [facility] [place] [address], [facility] Hemoglobin (Bld) [Mass/Vol] 6.5 g/dL Low 13.0-17.0 [facility] Comment on above: Performed By: #### 3 0313 #### [facility] [address] [place] [address], [facility] HYPO Moderate Normal [facility] Comment on above: Performed By: #### 3 0313 #### [facility] [address] [place] [address], [facility] IMM PLATELET FRAC 20.4 % High 0.8-6.3 [facility] Comment on above: Performed By: #### 3 0313 #### [facility] [address] [place] [address], [facility] IMMATURE GRANS 1.3 % High 0.0-1.0 [facility] Comment on above: Performed By: #### 3 0313 #### [facility] [address] [place] [address], [facility] Lymphocytes (Bld) [#/Vol] 0.6 10*3/uL Low 1.2-4.0 [facility] Comment on above: Performed By: #### 3 0313 #### [facility] [address] [facility] [place] [address], [facility] Lymphocytes/100 WBC (Bld) 4.7 % Low 20.0-45.0 [facility] Comment on above: Performed By: #### 3 0313 #### [facility] [address] [place] [address], [facility] MACRO Moderate Normal [facility] Comment on above: Performed By: #### 3 0313 #### [facility] [address] [place] [address], [facility] MCH (RBC) [Entitic mass] 37.1 pg High 27.0-33.0 [facility] Comment on above: Performed By: #### 3 3 #### [facility] [address] [place] [address], [facility] MCHC (RBC) [Mass/Vol] 32.3 g/dL Normal 32.0-35.0 [facility] Comment on above: Performed By: #### 3 3 #### [facility] [address] [place] [address], [facility] MCV (RBC) [Entitic vol] 114.9 fL High 82.0-98.0 [facility] Comment on above: Performed By: #### 3 3 #### [facility] [address] [place] [address], [facility] Monocytes (Bld) [#/Vol] 2.5 10*3/uL High 0.1-1.0 [facility] Comment on above: Performed By: #### 3 0313 #### [facility] [address] [place] [address], [facility] MONOS 19.8 % High 5.0-12.0 [facility] Comment on above: Performed By: #### 3 0313 #### [facility] [address] [place] [address], [facility] Neutrophils/100 WBC (Bld) 74.0 % High 40.0-72.0 [facility] Comment on above: Performed By: #### 3 3 #### [facility] [address] [place] [address], [facility] Nucleated RBC/100 WBC (Bld) [Ratio] 0 % Normal 0-0 [facility] Comment on above: Performed By: #### 3 0313 #### [facility] [address] [place] [address], [facility] OVALOCYTES Moderate Normal [facility] Comment on above: Performed By: #### 3 0313 #### [facility] [address] [place] [address], [facility] PLAT CNT 52 10*3/uL Low 150-400 [facility] Comment on above: Performed By: #### 3 0313 #### [facility] [address] [place] [address], [facility] POIK Moderate Normal [facility] Comment on above: Performed By: #### 3 0313 #### [facility] [address] [place] [address], [facility] RBC (Bld) [#/Vol] 1.75 10*6/uL Low 4.20-5.70 [facility] Comment on above: Performed By: #### 3 0313 #### [facility] [address] [place] [address], [facility] WBC (Bld) [#/Vol] 12.59 10*3/uL High 4.00-10.60 [facility] Comment on above: Performed By: #### 3 0313 #### [facility] [address] [place] [address], [facility] MAGNESIUM BLOODon 11-17-2021 Magnesium [Mass/Vol] 1.7 mg/dL Low 1.9-2.7 [facility] Comment on above: Performed By: #### 1 0070, 97169, 54323 ####[facility] PORTABLE CHEST 1 VIEWon 10-27 PORTABLE CHEST 1 VIEW [facility] Department of Radiology [address] [place] [address] ===== Patient Name: SANDIP BROUSSARD : 1940 Sex: M Age: Race: White Pt. Location: [place] Patient Status: E Ordered Date: 11/17/2021 7:20:00 [...] recommended. Electronically signed: Jasper Zelaya. Transcribed by: [email or web address], User Resident: Electronically Signed by: JASPER ZELAYA @ 11/17/2021 07:43 PM Normal [facility] Comment on above: Order Comment: Evalu ate for Cardiomegaly PROTHROMBIN TIMEon INR Coag (PPP) [Relative time] 1.42 {INR} High 0.91-1.16 [facility] Comment on above: Result Comment: ACC P RECOMMENDED INR FOR WARFARIN THERAPY ------ [...] 1995;108:231S-246S. Performed By: #### 5 0103 #### [facility] [employer] [address] PT Coag (PPP) [Time] 17.3 s High 12.3-14.8 [facility] Comment on above: Result Comment: ALL RESULTS MUST BE INTERPRETED WITH RESPECT TO BLOOD DRAWING ARTIFACT OR DILUTION ERROR OF ANTICOAGULANT AT THE TIME OF SAMPLING. Performed By: #### 5 0103 #### [facility] [employer] [facility] [address], [facility] RBC'S 1 UNITon 11-17-2021 CROSSMATCH INTERP 1 COMP Normal [facility] Comment on above: Performed By: #### 5 0103 #### [facility] [employer] [facility]. [address] PRODUCT CODE 1 E0336 Normal [facility] Comment on above: Performed By: #### 5 0103 #### [facility] [employer] [facility]. [address] PRODUCT STATUS 1 PT Normal [facility] Comment on above: Result Comment: Resu lt changed by IF on 11/17/2021 20:41. The previous value was XM. Result changed by IF on 11/18/2021 00:30. The previous value was IS. Performed By: #### 5 0103 #### [facility] [address] [place] [address], [facility] UNIT ABO 1 A Normal [facility] Comment on above: Performed By: #### 5 0103 #### [facility] [address] [place] [address], [facility] UNIT ID 1 [id number] Normal [facility] Comment on above: Performed By: #### 5 0103 #### [facility] [address] [place] [address], [facility] UNIT RH 1 Positive Normal [facility] Comment on above: Performed By: #### 5 0103 #### [facility] [address] [place] [address], [facility] TROPONIN-Ion 11-17-2021 Troponin I.cardiac [Mass/Vol] 1.79 ng/mL Critically high 0.00-0.04 [facility] Comment on above: Result Comment: M-TR OPONIN INITIAL CRITICAL HIGH; RESPUN AND RETESTED M-CRITICAL RESULT(S) REVIEWED, CALLED TO AND READ BACK BY Judy Pablo RN at 2130. REFERENCE RANGES: 0.00 - 0.04 ng/ml NORMAL 0.05 - 0.50 ng/ml INDETERMINATE > 0.50 ng/ml CONSISTENT WITH AN M.I. Performed By: #### 1 0070, 12009, 16306 ####[facility] [place] [address], [facility] TYPE AND SCREENon 11-17-2021 ABO INTERPRETATION A Normal [facility] Comment on above: Performed By: #### 6 2586 ####[facility] [place] [address], [facility] RH INTERPRETATION Positive Normal [facility] Comment on above: Performed By: #### 6 2586 ####[facility] [place] [address], [place] CBC W Auto Differential pane l (Bld)on 11-02-2021 Abs Baso 0.00 k/uL <0.11 k/uL [facility] Abs Lawrence 1.26 k/uL High <0.87 k/uL [facility] Absolute nRBC <0.01 <0.01 k/uL [facility] Anisocytosis Ql (Bld) Present [facility] Basophils/100 WBC (Bld) 0.0 % [facility] Differential cell count method Nom (Bld) Manual [facility] Eosinophils (Bld) [#/Vol] 0.00 10*3/uL <0.46 k/uL [facility] Eosinophils/100 WBC (Bld) 0.0 % [facility] Erythrocyte distribution width (RBC) [Ratio] 24.7 % High 11.5 - 15.0 % [facility] Hematocrit (Bld) [Volume fraction] 25.2 % Low 39.0 - 51.0 % [facility] Hemoglobin (Bld) [Mass/Vol] 7.9 g/dL Low 13.0 - 17.0 g/dL [facility] Lymphocytes (Bld) [#/Vol] 1.33 10*3/uL 1.00 - 4.00 k/uL [facility] Lymphocytes/100 WBC (Bld) 19.0 % [facility] MCH (RBC) [Entitic mass] 36.2 pg High 26.0 - 34.0 pg [facility] MCHC (RBC) [Mass/Vol] 31.3 g/dL 30.5 - 36.0 g/dL [facility] MCV (RBC) [Entitic vol] 115.6 fL High 80.0 - 100.0 fL [facility] Monocytes/100 WBC (Bld) 18.0 % [facility] Neutrophils (Bld) [#/Vol] 4.42 10*3/uL 1.45 - 7.50 k/uL [facility] Neutrophils/100 WBC (Bld) 63.0 % [facility] Nucleated RBC/100 WBC (Bld) [Ratio] 0.0 /100 WBC [facility] Ovalocytes LM Ql (Bld) Few [facility] Platelet Estimate Adequate [facility] Platelet mean volume (Bld) [Entitic vol] 13.8 fL High 9.0 - 12.7 fL [facility] Platelets (Bld) [#/Vol] 226 10*3/uL 150 - 400 k/uL [facility] [facility] LM Ql (Bld) Slight [facility] RBC (Bld) [#/Vol] 2.18 10*6/uL Low 4.20 - 6.00 m/uL [facility] Red Cell Morph Reviewed [facility] WBC (Bld) [#/Vol] 7.02 10*3/uL 3.70 - 11.00 k/u L [facility] Comprehensive metabolic 2000 panelon 11-01-2021 Albumin [Mass/Vol] 4.2 g/dL 3.9 - 4.9 g/dL [facility] ALP [Catalytic activity/Vol] 51 U/L 38 - 113 U/L [facility] ALT [Catalytic activity/Vol] 22 U/L 10 - 54 U/L [facility] Anion gap [Moles/Vol] 13 mmol/L 9 - 18 mmol/L [facility] AST [Catalytic activity/Vol] 13 U/L Low 14 - 40 U/L [facility] Bilirubin [Mass/Vol] 0.5 mg/dL 0.2 - 1.3 mg/dL [facility] Calcium [Mass/Vol] 9.5 mg/dL 8.5 - 10.2 mg/dL [facility] Chloride [Moles/Vol] 104 mmol/L 97 - 105 mmol/L [facility] CO2 [Moles/Vol] 24 mmol/L 22 - 30 mmol/L [facility] Creatinine [Mass/Vol] 1.98 mg/dL High 0.73 - 1.22 mg/dL [facility] Estimated Glomerular Filtration Rate 33 mL/min/1.73m Low >=60 mL/min/1.73m [facility] Glucose [Mass/Vol] 154 mg/dL High 74 - 99 mg/dL [facility] Potassium [Moles/Vol] 3.6 mmol/L Low 3.7 - 5.1 mmol/L [facility] Protein [Mass/Vol] 6.3 g/dL 6.3 - 8.0 g/dL [facility] Sodium [Moles/Vol] 141 mmol/L 136 - 144 mmol/L [facility] Urea nitrogen [Mass/Vol] 41 mg/dL High 9 - 24 mg/dL [facility] LD LACTATE DEHYDROon 022 LDH [Catalytic activity/Vol] 263 U/L High 135 - 225 U/L [facility] Audiology Office/Clinic Note on 06-23-2018 Audiology Office/Clinic Note Patient seen for hearing aid evaluation, accompanied by his . Hearing test results were reviewed and appropriate hearing aid styles and levels of technology were discussed. Patient expressed interest in two Phonak [employer] B50 or 70-SP BTE hearing aids in [facility] with custom earmolds. Bilateral earmold impressions were [...] at time of dispense.Electronically signed by Evette Stiels 06/23/18 13:47 EST Normal [facility] Audiology Office/Clinic Note on 06-11-2018 Audiology Office/Clinic [...] interested in discussing amplification options.Electronically signed by Evette Stiles 06/11/18 09:57 EST Normal [facility] Otolaryngology Office/Clinic Noteon 06-11-2018 Otolaryngology Office/Clinic Note [...] Mylene Andrew MD 06/11/18 11:02 EST Normal [facility] Otolaryngology Consultationo n 05-28-2018 Otolaryngology Consultation Chief [...] Mylene Andrew MD 05/28/18 11:46 EDT Normal [facility] Vital Signs Date Time Vital Sign Value Performing Clinician Facility 03-11-2023 13:00-0400 Blood Pressure Location [facility] 03-11-2023 13:00-0400 Body temperature 97.7 [degF] [facility] 03-11-2023 13:00-0400 Diastolic blood pressure 64 mm[Hg] [facility] 03-11-2023 13:00-0400 Heart rate 59 /min [facility] 03-11-2023 13:00-0400 Mean blood pressure 86 mm[Hg] [facility] 03-11-2023 13:00-0400 Respiratory rate 18 /min [facility] 03-11-2023 13:00-0400 SaO2% (BldA) [Mass fraction] 100 % [facility] 03-11-2023 13:00-0400 Systolic blood pressure 129 mm[Hg] [facility] 11-20-2022 15:16-0400 Body height 166.1 cm Asher Hummel MD Work Phone: [facility] 11-20-2022 15:16-0400 Body temperature 97.5 [degF] Asher Hummel MD Work Phone: [facility] 11-20-2022 15:16-0400 Body weight 95.44 kg Asher Hummel MD Work Phone: [facility] 11-20-2022 15:16-0400 Diastolic blood pressure 58 mm[Hg] Ahser Hummel MD Work Phone: [facility] 11-20-2022 15:16-0400 Heart rate 59 /min Asher Hummel MD Work Phone: [facility] 11-20-2022 15:16-0400 Respiratory rate 18 /min Asher Hummel MD Work Phone: [facility] 11-20-2022 15:16-0400 SaO2% (BldA) [Mass fraction] 93 % Asher Hummel MD Work Phone: [facility] 11-20-2022 15:16-0400 Systolic blood pressure 98 mm[Hg] Asher Hummel MD Work Phone: [facility] 10-15-2022 14:14-0400 Body temperature 98.6 [degF] Elysia Esposito MD Work Phone: [facility] 10-15-2022 14:14-0400 Body weight 103.42 kg Elysia Esposito MD Work Phone: [facility] 10-15-2022 14:14-0400 Diastolic blood pressure 69 mm[Hg] Elysia Esposito MD Work Phone: [facility] 10-15-2022 14:14-0400 Heart rate 56 /min Elysia Esposito MD Work Phone: [facility] 10-15-2022 14:14-0400 Respiratory rate 19 /min Elysia Esposito MD Work Phone: [facility] 10-15-2022 14:14-0400 SaO2% (BldA) [Mass fraction] 100 % Elysia Esposito MD Work Phone: [facility] 10-15-2022 14:14-0400 Systolic blood pressure 129 mm[Hg] Elysia Esposito MD Work Phone: [facility] 09-18-2022 13:30-0500 Diastolic blood pressure 43 mm[Hg] Asher Hummel MD Work Phone: [facility] 09-18-2022 13:30-0500 Systolic blood pressure 126 mm[Hg] Asher Hummel MD Work Phone: [facility] 09-18-2022 13:28-0500 Body height 166.1 cm Asher Hummel MD Work Phone: [facility] 09-18-2022 13:28-0500 Body temperature 97.7 [degF] Asher Hummel MD Work Phone: [facility] 09-18-2022 13:28-0500 Body weight 100.25 kg Asher Hummel MD Work Phone: [facility] 09-18-2022 13:28-0500 Heart rate 71 /min Asher Hummel MD Work Phone: [facility] 09-18-2022 13:28-0500 Respiratory rate 18 /min Asher Hummel MD Work Phone: [facility] 09-18-2022 13:28-0500 SaO2% (BldA) [Mass fraction] 92 % Asher Hummel MD Work Phone: [facility] 08-28-2022 15:07-0500 Body height 166.1 cm Asher Hummel MD Work Phone: [facility] 08-28-2022 15:07-0500 Body temperature 97.3 [degF] Asher Hummel MD Work Phone: [facility] 08-28-2022 15:07-0500 Body weight 103.51 kg Asher Hummel MD Work Phone: [facility] 08-28-2022 15:07-0500 Diastolic blood pressure 62 mm[Hg] Asher Hummel MD Work Phone: [facility] 08-28-2022 15:07-0500 Heart rate 77 /min Asher Hummel MD Work Phone: [facility] 08-28-2022 15:07-0500 Respiratory rate 16 /min Asher Hummel MD Work Phone: [facility] 08-28-2022 15:07-0500 SaO2% (BldA) [Mass fraction] 92 % Asher Hummel MD Work Phone: [facility] 08-28-2022 15:07-0500 Systolic blood pressure 110 mm[Hg] Asher Hummel MD Work Phone: [facility] 08-21-2022 13:30-0500 Body height 166.1 cm Wilfred Martinez APRN.CNP Work Phone: [facility] 08-21-2022 13:30-0500 Body temperature 97.59 [degF] Wilfred Martinez APRN.PROJECT DEVELOPMENT LEADER Work Phone: [facility] 08-21-2022 13:30-0500 Body weight 103.51 kg Wilfred Martinez APRN.PROJECT DEVELOPMENT LEADER Work Phone: [facility] 08-21-2022 13:30-0500 Diastolic blood pressure 37 mm[Hg] Wilfred Martinez APRN.PROJECT DEVELOPMENT LEADER Work Phone: [facility] 08-21-2022 13:30-0500 Heart rate 74 /min Wilfred Martinez APRN.PROJECT DEVELOPMENT LEADER Work Phone: [facility] 08-21-2022 13:30-0500 Respiratory rate 18 /min Wilfred Martinez APRN.PROJECT DEVELOPMENT LEADER Work Phone: [facility] 08-21-2022 13:30-0500 SaO2% (BldA) [Mass fraction] 92 % Wilfred Martinez APRN.PROJECT DEVELOPMENT LEADER Work Phone: [facility] 08-21-2022 13:30-0500 Systolic blood pressure 84 mm[Hg] Wilfred Martinez APRN.PROJECT DEVELOPMENT LEADER Work Phone: [facility] 08-14-2022 14:28-0500 Diastolic blood pressure 64 mm[Hg] Chair Roman Work Phone: [facility] 08-14-2022 14:28-0500 SaO2% (BldA) [Mass fraction] 97 % Chair Hood Work Phone: [facility] 08-14-2022 14:28-0500 Systolic blood pressure 102 mm[Hg] Chair Hood Work Phone: [facility] 08-14-2022 13:55-0500 Body height 166.1 cm Wilfred Martinez APRN.PROJECT DEVELOPMENT LEADER Work Phone: [facility] 08-14-2022 13:55-0500 Body temperature 97.3 [degF] Wilfred Martinez APRN.PROJECT DEVELOPMENT LEADER Work Phone: [facility] 08-14-2022 13:55-0500 Body weight 103.96 kg Wilfred Martinez LOG CHIPPER.PROJECT DEVELOPMENT LEADER Work Phone: [facility] 08-14-2022 13:55-0500 Diastolic blood pressure 41 mm[Hg] Wilfred Martinez LOG CHIPPER.PROJECT DEVELOPMENT LEADER Work Phone: [facility] 08-14-2022 13:55-0500 Heart rate 71 /min Wilfred Martinez LOG CHIPPER.PROJECT DEVELOPMENT LEADER Work Phone: [facility] 08-14-2022 13:55-0500 Respiratory rate 16 /min Wilfred Martinez LOG CHIPPER.PROJECT DEVELOPMENT LEADER Work Phone: [facility] 08-14-2022 13:55-0500 SaO2% (BldA) [Mass fraction] 90 % Wilfred Martinez LOG CHIPPER.PROJECT DEVELOPMENT LEADER Work Phone: [facility] 08-14-2022 13:55-0500 Systolic blood pressure 93 mm[Hg] Wilfred Martinez LOG CHIPPER.PROJECT DEVELOPMENT LEADER Work Phone: [facility] 08-07-2022 15:19-0500 Diastolic blood pressure 57 mm[Hg] Asher Hummel MD Work Phone: [facility] 08-07-2022 15:19-0500 Systolic blood pressure 112 mm[Hg] Asher Hummel MD Work Phone: [facility] 08-07-2022 15:14-0500 Body height 166.1 cm Asher Hummel MD Work Phone: [facility] 08-07-2022 15:14-0500 Body temperature 97.81 [degF] Asher Hummel MD Work Phone: [facility] 08-07-2022 15:14-0500 Body weight 102.97 kg Asher Hummel MD Work Phone: [facility] 08-07-2022 15:14-0500 Heart rate 71 /min Asher Hummel MD Work Phone: [facility] 08-07-2022 15:14-0500 Respiratory rate 16 /min Asher Hummel MD Work Phone: [facility] 08-07-2022 15:14-0500 SaO2% (BldA) [Mass fraction] 94 % Asher Hummel MD Work Phone: [facility] 07-30-2022 15:00-0500 Body height 166.1 cm Radha Lori PA-C Work Phone: [facility] 07-30-2022 15:00-0500 Body temperature 97.9 [degF] Radha Lori PA-C Work Phone: [facility] 07-30-2022 15:00-0500 Body weight 104.69 kg Radha Lori PA-C Work Phone: [facility] 07-30-2022 15:00-0500 Diastolic blood pressure 52 mm[Hg] Radha Lori PA-C Work Phone: [facility] 07-30-2022 15:00-0500 Heart rate 83 /min Radha Lori PA-C Work Phone: [facility] 07-30-2022 15:00-0500 Respiratory rate 18 /min Radha Lori PA-C Work Phone: [facility] 07-30-2022 15:00-0500 SaO2% (BldA) [Mass fraction] 97 % Radha Lori PA-C Work Phone: [facility] 07-30-2022 15:00-0500 Systolic blood pressure 97 mm[Hg] Radha Lori PA-C Work Phone: [facility] 07-23-2022 14:23-0500 Body height 166.1 cm Asher Hummel MD Work Phone: [facility] 07-23-2022 14:23-0500 Body temperature 97.81 [degF] Asher Hummel MD Work Phone: [facility] 07-23-2022 14:23-0500 Body weight 105.69 kg Asher Hummel MD Work Phone: [facility] 07-23-2022 14:23-0500 Diastolic blood pressure 58 mm[Hg] Asher Hummel MD Work Phone: [facility] 07-23-2022 14:23-0500 Heart rate 65 /min Asher Hummel MD Work Phone: [facility] 07-23-2022 14:23-0500 Respiratory rate 16 /min Asher Hummel MD Work Phone: [facility] 07-23-2022 14:23-0500 SaO2% (BldA) [Mass fraction] 95 % Asher Hummel MD Work Phone: [facility] 07-23-2022 14:23-0500 Systolic blood pressure 103 mm[Hg] Asher Hummel MD Work Phone: [facility] 07-16-2022 13:59-0500 Body temperature 98.01 [degF] Elysia Esposito MD Work Phone: [facility] 07-16-2022 13:59-0500 Body weight 106.87 kg Elysia Esposito MD Work Phone: [facility] 07-16-2022 13:59-0500 Diastolic blood pressure 59 mm[Hg] Elysia Esposito MD Work Phone: [facility] 07-16-2022 13:59-0500 Heart rate 50 /min Elysia Esposito MD Work Phone: [facility] 07-16-2022 13:59-0500 Respiratory rate 18 /min Elysia Esposito MD Work Phone: [facility] 07-16-2022 13:59-0500 SaO2% (BldA) [Mass fraction] 96 % Elysia Esposito MD Work Phone: [facility] 07-16-2022 13:59-0500 Systolic blood pressure 107 mm[Hg] Elysia Esposito MD Work Phone: [facility] 07-15-2022 15:02-0500 Body height 166.1 cm Chair Roman Work Phone: [facility] 07-15-2022 15:02-0500 Body weight 106.2 kg Chair Roman Work Phone: [facility] 07-15-2022 14:22-0500 Body height 166.1 cm Asher Hummel MD Work Phone: [facility] 07-15-2022 14:22-0500 Body temperature 97.59 [degF] Asher Hummel MD Work Phone: [facility] 07-15-2022 14:22-0500 Body weight 106.23 kg Asher Hummel MD Work Phone: [facility] 07-15-2022 14:22-0500 Diastolic blood pressure 43 mm[Hg] Asher Hummel MD Work Phone: [facility] 07-15-2022 14:22-0500 Heart rate 56 /min Asher Hummel MD Work Phone: [facility] 07-15-2022 14:22-0500 Respiratory rate 16 /min Asher Hummel MD Work Phone: [facility] 07-15-2022 14:22-0500 SaO2% (BldA) [Mass fraction] 93 % Asher Hummel MD Work Phone: [facility] 07-15-2022 14:22-0500 Systolic blood pressure 103 mm[Hg] Asher Hummel MD Work Phone: [facility] 07-09-2022 14:11-0500 Body temperature 97.2 [degF] Chair Roman Work Phone: [facility] 07-09-2022 14:11-0500 Diastolic blood pressure 71 mm[Hg] Chair Roman Work Phone: [facility] 07-09-2022 14:11-0500 Heart rate 68 /min Chair Hood Work Phone: [facility] 07-09-2022 14:11-0500 Respiratory rate 16 /min Chair Hood Work Phone: [facility] 07-09-2022 14:11-0500 Systolic blood pressure 107 mm[Hg] Chair Roman Work Phone: [facility] 07-08-2022 14:22-0500 Body height 166.1 cm Radha Lori PA-C Work Phone: [facility] 07-08-2022 14:22-0500 Body temperature 97.59 [degF] Radha Lori PA-C Work Phone: [facility] 07-08-2022 14:22-0500 Body weight 106.41 kg Radha Lori PA-C Work Phone: [facility] 07-08-2022 14:22-0500 Diastolic blood pressure 42 mm[Hg] Radha Lori PA-C Work Phone: [facility] 07-08-2022 14:22-0500 Heart rate 59 /min Radha Lori PA-C Work Phone: [facility] 07-08-2022 14:22-0500 Respiratory rate 18 /min Radha Lori PA-C Work Phone: [facility] 07-08-2022 14:22-0500 SaO2% (BldA) [Mass fraction] 97 % Radha Lori PA-C Work Phone: [facility] 07-08-2022 14:22-0500 Systolic blood pressure 99 mm[Hg] Radha Lori PA-C Work Phone: [facility] 07-02-2022 14:23-0500 Body temperature 97.9 [degF] Chair Hood Work Phone: [facility] 07-02-2022 14:23-0500 Diastolic blood pressure 62 mm[Hg] Chair Hood Work Phone: [facility] 07-02-2022 14:23-0500 Heart rate 50 /min Chair Roman Work Phone: [facility] 07-02-2022 14:23-0500 Respiratory rate 18 /min Chair Roman Work Phone: [facility] 07-02-2022 14:23-0500 SaO2% (BldA) [Mass fraction] 100 % Chair Hood Work Phone: [facility] 07-02-2022 14:23-0500 Systolic blood pressure 121 mm[Hg] Chair Hood Work Phone: [facility] 07-01-2022 14:15-0500 Body height 166.1 cm Asher Hummel MD Work Phone: [facility] 07-01-2022 14:15-0500 Body temperature 97.59 [degF] Asher Hummel MD Work Phone: [facility] 07-01-2022 14:15-0500 Body weight 105.05 kg Asher Hummel MD Work Phone: [facility] 07-01-2022 14:15-0500 Diastolic blood pressure 54 mm[Hg] Asher Hummel MD Work Phone: [facility] 07-01-2022 14:15-0500 Heart rate 77 /min Asher Hummel MD Work Phone: [facility] 07-01-2022 14:15-0500 Respiratory rate 16 /min Asher Hummel MD Work Phone: [facility] 07-01-2022 14:15-0500 SaO2% (BldA) [Mass fraction] 95 % Asher Hummel MD Work Phone: [facility] 07-01-2022 14:15-0500 Systolic blood pressure 104 mm[Hg] Asher Hummel MD Work Phone: [facility] 06-25-2022 13:35-0500 Body temperature 97.9 [degF] Chair Roman Work Phone: [facility] 06-25-2022 13:35-0500 Diastolic blood pressure 51 mm[Hg] Chair Hood Work Phone: [facility] 06-25-2022 13:35-0500 Heart rate 61 /min Chair Roman Work Phone: [facility] 06-25-2022 13:35-0500 Respiratory rate 18 /min Chair Roman Work Phone: [facility] 06-25-2022 13:35-0500 SaO2% (BldA) [Mass fraction] 99 % Chair Hood Work Phone: [facility] 06-25-2022 13:35-0500 Systolic blood pressure 113 mm[Hg] Chair Hood Work Phone: [facility] 06-24-2022 13:19-0500 Body height 166.1 cm Wilfred Martinez APRN.PROJECT DEVELOPMENT LEADER Work Phone: [facility] 06-24-2022 13:19-0500 Body temperature 97.39 [degF] Wilfred Martinez APRN.PROJECT DEVELOPMENT LEADER Work Phone: [facility] 06-24-2022 13:19-0500 Body weight 104.6 kg Wilfred Martinez APRN.PROJECT DEVELOPMENT LEADER Work Phone: [facility] 06-24-2022 13:19-0500 Diastolic blood pressure 52 mm[Hg] Wilfred Martinez APRN.PROJECT DEVELOPMENT LEADER Work Phone: [facility] 06-24-2022 13:19-0500 Heart rate 74 /min Wilfred Martinez APRN.PROJECT DEVELOPMENT LEADER Work Phone: [facility] 06-24-2022 13:19-0500 Respiratory rate 16 /min Wilfred Martinez APRN.PROJECT DEVELOPMENT LEADER Work Phone: [facility] 06-24-2022 13:19-0500 SaO2% (BldA) [Mass fraction] 95 % Wilfred Martinez LOG CHIPPER.PROJECT DEVELOPMENT LEADER Work Phone: [facility] 06-24-2022 13:19-0500 Systolic blood pressure 97 mm[Hg] Wilfred Martinez LOG CHIPPER.PROJECT DEVELOPMENT LEADER Work Phone: [facility] 06-18-2022 13:26-0500 Body temperature 97.7 [degF] Chair Hood Work Phone: [facility] 06-18-2022 13:26-0500 Diastolic blood pressure 74 mm[Hg] Chair Hood Work Phone: [facility] 06-18-2022 13:26-0500 Heart rate 65 /min Chair Hood Work Phone: [facility] 06-18-2022 13:26-0500 Respiratory rate 16 /min Chair Hood Work Phone: [facility] 06-18-2022 13:26-0500 SaO2% (BldA) [Mass fraction] 100 % Chair Roman Work Phone: [facility] 06-18-2022 13:26-0500 Systolic blood pressure 103 mm[Hg] Chair Hood Work Phone: [facility] 06-17-2022 10:04-0500 Body height 166.1 cm Asher Hummel MD Work Phone: [facility] 06-17-2022 10:04-0500 Body temperature 97.11 [degF] Asher Hummel MD Work Phone: [facility] 06-17-2022 10:04-0500 Body weight 105.23 kg Asher Hummel MD Work Phone: [facility] 06-17-2022 10:04-0500 Diastolic blood pressure 57 mm[Hg] Asher Hummel MD Work Phone: [facility] 06-17-2022 10:04-0500 Heart rate 67 /min Asher Hummel MD Work Phone: [facility] 06-17-2022 10:04-0500 Respiratory rate 18 /min Asher Hummel MD Work Phone: [facility] 06-17-2022 10:04-0500 SaO2% (BldA) [Mass fraction] 96 % Asher Hummel MD Work Phone: [facility] 06-17-2022 10:04-0500 Systolic blood pressure 108 mm[Hg] Asher Hummel MD Work Phone: [facility] 06-11-2022 14:00-0500 Body temperature 98.1 [degF] Chair Roman Work Phone: [facility] 06-11-2022 14:00-0500 Diastolic blood pressure 84 mm[Hg] Chair Roman Work Phone: [facility] 06-11-2022 14:00-0500 Heart rate 74 /min Chair Roman Work Phone: [facility] 06-11-2022 14:00-0500 Respiratory rate 18 /min Chair Hood Work Phone: [facility] 06-11-2022 14:00-0500 SaO2% (BldA) [Mass fraction] 95 % Chair Hood Work Phone: [facility] 06-11-2022 14:00-0500 Systolic blood pressure 121 mm[Hg] Chair Hood Work Phone: [facility] 06-10-2022 14:17-0500 Body height 166.1 cm Radha Lori PA-C Work Phone: [facility] 06-10-2022 14:17-0500 Body temperature 97.3 [degF] Radha Lori PA-C Work Phone: [facility] 06-10-2022 14:17-0500 Body weight 105.51 kg Radha Lori PA-C Work Phone: [facility] 06-10-2022 14:17-0500 Diastolic blood pressure 49 mm[Hg] Radha Lori PA-C Work Phone: [facility] 06-10-2022 14:17-0500 Heart rate 78 /min Radha Lori PA-C Work Phone: [facility] 06-10-2022 14:17-0500 Respiratory rate 20 /min Radha Lori PA-C Work Phone: [facility] 06-10-2022 14:17-0500 SaO2% (BldA) [Mass fraction] 94 % Radha Lori PA-C Work Phone: [facility] 06-10-2022 14:17-0500 Systolic blood pressure 111 mm[Hg] Radha Lori PA-C Work Phone: [facility] 06-03-2022 13:15-0500 Body height 166.1 cm Asher Hummel MD Work Phone: [facility] 06-03-2022 13:15-0500 Body temperature 97.2 [degF] Asher Hummel MD Work Phone: [facility] 06-03-2022 13:15-0500 Body weight 108.68 kg Asher Hummel MD Work Phone: [facility] 06-03-2022 13:15-0500 Diastolic blood pressure 59 mm[Hg] Asher Hummel MD Work Phone: [facility] 06-03-2022 13:15-0500 Heart rate 73 /min Asher Hummel MD Work Phone: [facility] 06-03-2022 13:15-0500 Respiratory rate 20 /min Asher Hummel MD Work Phone: [facility] 06-03-2022 13:15-0500 SaO2% (BldA) [Mass fraction] 95 % Asher Hummel MD Work Phone: [facility] 06-03-2022 13:15-0500 Systolic blood pressure 97 mm[Hg] Asher Hummel MD Work Phone: [facility] 05-28-2022 13:20-0400 Body temperature 97.39 [degF] Chair Roman Work Phone: [facility] 05-28-2022 13:20-0400 Diastolic blood pressure 56 mm[Hg] Chair Hood Work Phone: [facility] 05-28-2022 13:20-0400 Heart rate 60 /min Chair Hood Work Phone: [facility] 05-28-2022 13:20-0400 Respiratory rate 18 /min Chair Hood Work Phone: [facility] 05-28-2022 13:20-0400 SaO2% (BldA) [Mass fraction] 98 % Chair Hood Work Phone: [facility] 05-28-2022 13:20-0400 Systolic blood pressure 120 mm[Hg] Chair Hood Work Phone: [facility] 05-27-2022 13:34-0400 Body temperature 97.3 [degF] Chair Hood Work Phone: [facility] 05-27-2022 13:34-0400 Diastolic blood pressure 55 mm[Hg] Chair Hood Work Phone: [facility] 05-27-2022 13:34-0400 Heart rate 62 /min Chair Hood Work Phone: [facility] 05-27-2022 13:34-0400 Respiratory rate 18 /min Chair Roman Work Phone: [facility] 05-27-2022 13:34-0400 SaO2% (BldA) [Mass fraction] 98 % Chair Hood Work Phone: [facility] 05-27-2022 13:34-0400 Systolic blood pressure 120 mm[Hg] Chair Hood Work Phone: [facility] 05-21-2022 10:25-0400 Body temperature 98.01 [degF] Chair Hood Work Phone: [facility] 05-21-2022 10:25-0400 Diastolic blood pressure 57 mm[Hg] Chair Hood Work Phone: [facility] 05-21-2022 10:25-0400 Heart rate 53 /min Chair Hood Work Phone: [facility] 05-21-2022 10:25-0400 Respiratory rate 20 /min Chair Hood Work Phone: [facility] 05-21-2022 10:25-0400 SaO2% (BldA) [Mass fraction] 99 % Chair Roman Work Phone: [facility] 05-21-2022 10:25-0400 Systolic blood pressure 115 mm[Hg] Chair Roman Work Phone: [facility] 05-20-2022 13:54-0400 Body height 166.1 cm Asher Hummel MD Work Phone: [facility] 05-20-2022 13:54-0400 Body temperature 97.5 [degF] Asher Hummel MD Work Phone: [facility] 05-20-2022 13:54-0400 Body weight 108.14 kg Asher Hummel MD Work Phone: [facility] 05-20-2022 13:54-0400 Diastolic blood pressure 47 mm[Hg] Asher Hummel MD Work Phone: [facility] 05-20-2022 13:54-0400 Heart rate 74 /min Asher Hummel MD Work Phone: [facility] 05-20-2022 13:54-0400 Respiratory rate 18 /min Asher Hummel MD Work Phone: [facility] 05-20-2022 13:54-0400 SaO2% (BldA) [Mass fraction] 94 % Asher Hummel MD Work Phone: [facility] 05-20-2022 13:54-0400 Systolic blood pressure 121 mm[Hg] Asher Hummel MD Work Phone: [facility] 05-13-2022 14:48-0400 Body temperature 97.39 [degF] [facility] Work Phone: [facility] 05-13-2022 14:48-0400 Diastolic blood pressure 61 mm[Hg] [facility] Work Phone: [facility] 05-13-2022 14:48-0400 Heart rate 89 /min [facility] Work Phone: [facility] 05-13-2022 14:48-0400 Respiratory rate 18 /min [facility] Work Phone: [facility] 05-13-2022 14:48-0400 SaO2% (BldA) [Mass fraction] 96 % [facility] Work Phone: [facility] 05-13-2022 14:48-0400 Systolic blood pressure 107 mm[Hg] [facility] Work Phone: [facility] 05-06-2022 16:19-0400 Body height 167.1 cm Asher Hummel MD Work Phone: [facility] 05-06-2022 16:19-0400 Body temperature 97.5 [degF] Asher Hummel MD Work Phone: [facility] 05-06-2022 16:19-0400 Body weight 111.77 kg Asher Hummel MD Work Phone: [facility] 05-06-2022 16:19-0400 Diastolic blood pressure 83 mm[Hg] Asher Hummel MD Work Phone: [facility] 05-06-2022 16:19-0400 Heart rate 65 /min Asher Hummel MD Work Phone: [facility] 05-06-2022 16:19-0400 Respiratory rate 16 /min Asher Hummel MD Work Phone: [facility] 05-06-2022 16:19-0400 SaO2% (BldA) [Mass fraction] 94 % Asher Hummel MD Work Phone: [facility] 05-06-2022 16:19-0400 Systolic blood pressure 140 mm[Hg] sAher Hummel MD Work Phone: [facility] 04-29-2022 12:49-0400 Body height 167.1 cm Asher Hummel MD Work Phone: [facility] 04-29-2022 12:49-0400 Body temperature 97.81 [degF] Asher Hummel MD Work Phone: [facility] 04-29-2022 12:49-0400 Body weight 108.95 kg Asher Hummel MD Work Phone: [facility] 04-29-2022 12:49-0400 Diastolic blood pressure 64 mm[Hg] Asher Hummel MD Work Phone: [facility] 04-29-2022 12:49-0400 Heart rate 55 /min Asher Hummel MD Work Phone: [facility] 04-29-2022 12:49-0400 Respiratory rate 20 /min Asher Hummel MD Work Phone: [facility] 04-29-2022 12:49-0400 SaO2% (BldA) [Mass fraction] 92 % Asher Hummel MD Work Phone: [facility] 04-29-2022 12:49-0400 Systolic blood pressure 119 mm[Hg] Asher Hummel MD Work Phone: [facility] 04-25-2022 07:52-0400 Body height 167.1 cm Asher Hummel MD Work Phone: [facility] 04-25-2022 07:52-0400 Body temperature 97.2 [degF] Asher Hummel MD Work Phone: [facility] 04-25-2022 07:52-0400 Body weight 109.59 kg Asher Hummel MD Work Phone: [facility] 04-25-2022 07:52-0400 Diastolic blood pressure 59 mm[Hg] Asher Hummel MD Work Phone: [facility] 04-25-2022 07:52-0400 Heart rate 54 /min Asher Hummel MD Work Phone: [facility] 04-25-2022 07:52-0400 Respiratory rate 18 /min Asher Hummel MD Work Phone: [facility] 04-25-2022 07:52-0400 SaO2% (BldA) [Mass fraction] 94 % Asher Hummel MD Work Phone: [facility] 04-25-2022 07:52-0400 Systolic blood pressure 131 mm[Hg] Asher Hummel MD Work Phone: [facility] 04-18-2022 13:54-0400 Body height 167.1 cm Elysia Esposito MD Work Phone: [facility] 04-18-2022 13:54-0400 Body temperature 98.2 [degF] Elysia Esposito MD Work Phone: [facility] 04-18-2022 13:54-0400 Body weight 109.63 kg Elysia Esposito MD Work Phone: [facility] 04-18-2022 13:54-0400 Diastolic blood pressure 50 mm[Hg] Elysia Esposito MD Work Phone: [facility] 04-18-2022 13:54-0400 Heart rate 63 /min Elysia Esposito MD Work Phone: [facility] 04-18-2022 13:54-0400 Respiratory rate 22 /min Elysia Esposito MD Work Phone: [facility] 04-18-2022 13:54-0400 SaO2% (BldA) [Mass fraction] 98 % Elysia Esposito MD Work Phone: [facility] 04-18-2022 13:54-0400 Systolic blood pressure 135 mm[Hg] Elysia Esposito MD Work Phone: [facility] 04-08-2022 14:25-0400 Body height 165.2 cm Asher Hummel MD Work Phone: [facility] 04-08-2022 14:25-0400 Body temperature 97.3 [degF] Asher Hummel MD Work Phone: [facility] 04-08-2022 14:25-0400 Body weight 111.4 kg Asher Hummel MD Work Phone: [facility] 04-08-2022 14:25-0400 Diastolic blood pressure 62 mm[Hg] Asher Hummel MD Work Phone: [facility] 04-08-2022 14:25-0400 Heart rate 65 /min Asher Hummel MD Work Phone: [facility] 04-08-2022 14:25-0400 Respiratory rate 16 /min Asher Hummel MD Work Phone: [facility] 04-08-2022 14:25-0400 SaO2% (BldA) [Mass fraction] 94 % Asher Hummel MD Work Phone: [facility] 04-08-2022 14:25-0400 Systolic blood pressure 99 mm[Hg] Asher Hummel MD Work Phone: [facility] 03-25-2022 14:20-0400 Body temperature 98.1 [degF] [facility] Work Phone: [facility] 03-25-2022 14:20-0400 Diastolic blood pressure 44 mm[Hg] [facility] Work Phone: [facility] 03-25-2022 14:20-0400 Heart rate 66 /min [facility] Work Phone: [facility] 03-25-2022 14:20-0400 Respiratory rate 18 /min [facility] Work Phone: [facility] 03-25-2022 14:20-0400 SaO2% (BldA) [Mass fraction] 96 % [facility] Work Phone: [facility] 03-25-2022 14:20-0400 Systolic blood pressure 109 mm[Hg] [facility] Work Phone: [facility] 03-15-2022 13:58-0400 Heart rate 58 /min Chair Hood Work Phone: [facility] 03-15-2022 13:21-0400 Body temperature 97.81 [degF] Chair Hood Work Phone: [facility] 03-15-2022 13:21-0400 Diastolic blood pressure 49 mm[Hg] Chair Roman Work Phone: [facility] 03-15-2022 13:21-0400 Respiratory rate 18 /min Chair Hood Work Phone: [facility] 03-15-2022 13:21-0400 SaO2% (BldA) [Mass fraction] 97 % Chair Hood Work Phone: [facility] 03-15-2022 13:21-0400 Systolic blood pressure 111 mm[Hg] Chair Roman Work Phone: [facility] 03-14-2022 14:46-0400 Body temperature 97.81 [degF] Chair Roman Work Phone: [facility] 03-14-2022 14:46-0400 Diastolic blood pressure 63 mm[Hg] Chair Roman Work Phone: [facility] 03-14-2022 14:46-0400 Heart rate 64 /min Chair Hood Work Phone: [facility] 03-14-2022 14:46-0400 Respiratory rate 18 /min Chair Roman Work Phone: [facility] 03-14-2022 14:46-0400 SaO2% (BldA) [Mass fraction] 96 % Chair Hood Work Phone: [facility] 03-14-2022 14:46-0400 Systolic blood pressure 107 mm[Hg] Chair Hood Work Phone: [facility] 03-13-2022 14:41-0400 Body temperature 98.1 [degF] Chair Hood Work Phone: [facility] 03-13-2022 14:41-0400 Diastolic blood pressure 54 mm[Hg] Chair Roman Work Phone: [facility] 03-13-2022 14:41-0400 Heart rate 60 /min Chair Hood Work Phone: [facility] 03-13-2022 14:41-0400 Respiratory rate 20 /min Chair Roman Work Phone: [facility] 03-13-2022 14:41-0400 SaO2% (BldA) [Mass fraction] 97 % Chair Roman Work Phone: [facility] 03-13-2022 14:41-0400 Systolic blood pressure 116 mm[Hg] Chair Hood Work Phone: [facility] 03-11-2022 14:10-0400 Body height 165.2 cm Asher Hummel MD Work Phone: [facility] 03-11-2022 14:10-0400 Body temperature 97.3 [degF] Asher Hummel MD Work Phone: [facility] 03-11-2022 14:10-0400 Body weight 112.58 kg Asher Hummel MD Work Phone: [facility] 03-11-2022 14:10-0400 Diastolic blood pressure 38 mm[Hg] Asher Hummel MD Work Phone: [facility] 03-11-2022 14:10-0400 Heart rate 60 /min Asher Hummel MD Work Phone: [facility] 03-11-2022 14:10-0400 Respiratory rate 18 /min Asher Hummel MD Work Phone: [facility] 03-11-2022 14:10-0400 SaO2% (BldA) [Mass fraction] 98 % Asher Hummel MD Work Phone: [facility] 03-11-2022 14:10-0400 Systolic blood pressure 106 mm[Hg] Asher Hummel MD Work Phone: [facility] 02-25-2022 14:50-0400 Body temperature 98.1 [degF] [facility] Work Phone: [facility] 02-25-2022 14:50-0400 Diastolic blood pressure 56 mm[Hg] [facility] Work Phone: [facility] 02-25-2022 14:50-0400 Heart rate 59 /min [facility] Work Phone: [facility] 02-25-2022 14:50-0400 Respiratory rate 18 /min [facility] Work Phone: [facility] 02-25-2022 14:50-0400 SaO2% (BldA) [Mass fraction] 100 % [facility] Work Phone: [facility] 02-25-2022 14:50-0400 Systolic blood pressure 110 mm[Hg] [facility] Work Phone: [facility] 02-15-2022 13:15-0400 Body temperature 97.7 [degF] Chair Hood Work Phone: [facility] 02-15-2022 13:15-0400 Diastolic blood pressure 63 mm[Hg] Chair Hood Work Phone: [facility] 02-15-2022 13:15-0400 Heart rate 74 /min Chair Hood Work Phone: [facility] 02-15-2022 13:15-0400 Respiratory rate 18 /min Chair Hood Work Phone: [facility] 02-15-2022 13:15-0400 SaO2% (BldA) [Mass fraction] 99 % Chair Hood Work Phone: [facility] 02-15-2022 13:15-0400 Systolic blood pressure 109 mm[Hg] Chair Hood Work Phone: [facility] 02-14-2022 13:35-0400 Body temperature 97.59 [degF] Chair Hood Work Phone: [facility] 02-14-2022 13:35-0400 Diastolic blood pressure 79 mm[Hg] Chair Hood Work Phone: [facility] 02-14-2022 13:35-0400 Heart rate 65 /min Chair Hood Work Phone: [facility] 02-14-2022 13:35-0400 Respiratory rate 18 /min Chair Roman Work Phone: [facility] 02-14-2022 13:35-0400 SaO2% (BldA) [Mass fraction] 99 % Chair Hood Work Phone: [facility] 02-14-2022 13:35-0400 Systolic blood pressure 118 mm[Hg] Chair Hood Work Phone: [facility] 02-13-2022 13:10-0400 Body temperature 98.2 [degF] Chair Hood Work Phone: [facility] 02-13-2022 13:10-0400 Diastolic blood pressure 45 mm[Hg] Chair Hood Work Phone: [facility] 02-13-2022 13:10-0400 Heart rate 53 /min Chair Roman Work Phone: [facility] 02-13-2022 13:10-0400 Respiratory rate 18 /min Chair Roman Work Phone: [facility] 02-13-2022 13:10-0400 SaO2% (BldA) [Mass fraction] 99 % Chair Hood Work Phone: [facility] 02-13-2022 13:10-0400 Systolic blood pressure 101 mm[Hg] Chair Hood Work Phone: [facility] 02-12-2022 13:10-0400 Diastolic blood pressure 52 mm[Hg] Chair Roman Work Phone: [facility] 02-12-2022 13:10-0400 Heart rate 68 /min Chair Hood Work Phone: [facility] 02-12-2022 13:10-0400 Respiratory rate 18 /min Chair Hood Work Phone: [facility] 02-12-2022 13:10-0400 SaO2% (BldA) [Mass fraction] 98 % Chair Roman Work Phone: [facility] 02-12-2022 13:10-0400 Systolic blood pressure 98 mm[Hg] Chair Hood Work Phone: [facility] 02-11-2022 14:35-0400 Body height 165.2 cm Radha Harriser PA-C Work Phone: [facility] 02-11-2022 14:35-0400 Body temperature 97 [degF] Radha Harriser PA-C Work Phone: [facility] 02-11-2022 14:35-0400 Body weight 110.95 kg Radha Harriser PA-C Work Phone: [facility] 02-11-2022 14:35-0400 Diastolic blood pressure 42 mm[Hg] Radha Lori PA-C Work Phone: [facility] 02-11-2022 14:35-0400 Heart rate 81 /min Radha Lori PA-C Work Phone: [facility] 02-11-2022 14:35-0400 Respiratory rate 16 /min Radha Lori PA-C Work Phone: [facility] 02-11-2022 14:35-0400 SaO2% (BldA) [Mass fraction] 98 % Radha Harriser PA-C Work Phone: [facility] 02-11-2022 14:35-0400 Systolic blood pressure 104 mm[Hg] Radha Lori PA-C Work Phone: [facility] 02-04-2022 13:25-0400 Body temperature 98.1 [degF] [facility] Work Phone: [facility] 02-04-2022 13:25-0400 Diastolic blood pressure 63 mm[Hg] [facility] Work Phone: [facility] 02-04-2022 13:25-0400 Heart rate 88 /min [facility] Work Phone: [facility] 02-04-2022 13:25-0400 Respiratory rate 20 /min [facility] Work Phone: [facility] 02-04-2022 13:25-0400 SaO2% (BldA) [Mass fraction] 99 % [facility] Work Phone: [facility] 02-04-2022 13:25-0400 Systolic blood pressure 142 mm[Hg] [facility] Work Phone: [facility] 01-30-2022 14:00-0400 Body temperature 98.2 [degF] [facility] Work Phone: [facility] 01-30-2022 14:00-0400 Diastolic blood pressure 54 mm[Hg] [facility] Work Phone: [facility] 01-30-2022 14:00-0400 Heart rate 70 /min [facility] Work Phone: [facility] 01-30-2022 14:00-0400 Respiratory rate 18 /min [facility] Work Phone: [facility] 01-30-2022 14:00-0400 SaO2% (BldA) [Mass fraction] 98 % [facility] Work Phone: [facility] 01-30-2022 14:00-0400 Systolic blood pressure 107 mm[Hg] [facility] Work Phone: [facility] 01-21-2022 11:18-0400 Body temperature 97.81 [degF] Chair Hood Work Phone: [facility] 01-21-2022 11:18-0400 Diastolic blood pressure 52 mm[Hg] Chair Hood Work Phone: [facility] 01-21-2022 11:18-0400 Heart rate 78 /min Chair Roman Work Phone: [facility] 01-21-2022 11:18-0400 Respiratory rate 16 /min Chair Roman Work Phone: [facility] 01-21-2022 11:18-0400 SaO2% (BldA) [Mass fraction] 98 % Chair Roman Work Phone: [facility] 01-21-2022 11:18-0400 Systolic blood pressure 98 mm[Hg] Chair Roman Work Phone: [facility] 01-18-2022 13:20-0400 Body temperature 96.8 [degF] Chair Hood Work Phone: [facility] 01-18-2022 13:20-0400 Diastolic blood pressure 50 mm[Hg] Chair Roman Work Phone: [facility] 01-18-2022 13:20-0400 Heart rate 58 /min Chair Roman Work Phone: [facility] 01-18-2022 13:20-0400 Respiratory rate 18 /min Chair Hood Work Phone: [facility] 01-18-2022 13:20-0400 SaO2% (BldA) [Mass fraction] 99 % Chair Roamn Work Phone: [facility] 01-18-2022 13:20-0400 Systolic blood pressure 116 mm[Hg] Chair Hood Work Phone: [facility] 01-17-2022 13:49-0400 Body temperature 97.3 [degF] Chair Hood Work Phone: [facility] 01-17-2022 13:49-0400 Diastolic blood pressure 68 mm[Hg] Chair Hood Work Phone: [facility] 01-17-2022 13:49-0400 Heart rate 56 /min Chair Hood Work Phone: [facility] 01-17-2022 13:49-0400 Respiratory rate 18 /min Chair Hood Work Phone: [facility] 01-17-2022 13:49-0400 SaO2% (BldA) [Mass fraction] 99 % Chair Hood Work Phone: [facility] 01-17-2022 13:49-0400 Systolic blood pressure 112 mm[Hg] Chair Roman Work Phone: [facility] 01-16-2022 13:06-0400 Body temperature 96.69 [degF] Chair Hood Work Phone: [facility] 01-16-2022 13:06-0400 Diastolic blood pressure 49 mm[Hg] Chair Roman Work Phone: [facility] 01-16-2022 13:06-0400 Heart rate 58 /min Chair Hood Work Phone: [facility] 01-16-2022 13:06-0400 Respiratory rate 18 /min Chair Hood Work Phone: [facility] 01-16-2022 13:06-0400 SaO2% (BldA) [Mass fraction] 98 % Chair Roman Work Phone: [facility] 01-16-2022 13:06-0400 Systolic blood pressure 109 mm[Hg] Chair Hood Work Phone: [facility] 01-15-2022 14:00-0400 Body temperature 98.29 [degF] Chair Hood Work Phone: [facility] 01-15-2022 14:00-0400 Diastolic blood pressure 57 mm[Hg] Chair Hood Work Phone: [facility] 01-15-2022 14:00-0400 Heart rate 72 /min Chair Roman Work Phone: [facility] 01-15-2022 14:00-0400 Respiratory rate 18 /min Chair Hood Work Phone: [facility] 01-15-2022 14:00-0400 SaO2% (BldA) [Mass fraction] 98 % Chair Hood Work Phone: [facility] 01-15-2022 14:00-0400 Systolic blood pressure 101 mm[Hg] Chair Roman Work Phone: [facility] 01-14-2022 13:24-0400 Body height 165.2 cm Asher Hummel MD Work Phone: [facility] 01-14-2022 13:24-0400 Body temperature 97.2 [degF] Asher Hummel MD Work Phone: [facility] 01-14-2022 13:24-0400 Body weight 108.14 kg Asher Hummel MD Work Phone: [facility] 01-14-2022 13:24-0400 Diastolic blood pressure 73 mm[Hg] Asher Hummel MD Work Phone: [facility] 01-14-2022 13:24-0400 Heart rate 64 /min sAher Hummel MD Work Phone: [facility] 01-14-2022 13:24-0400 Respiratory rate 16 /min Asher Hummel MD Work Phone: [facility] 01-14-2022 13:24-0400 SaO2% (BldA) [Mass fraction] 98 % Asher Hummel MD Work Phone: [facility] 01-14-2022 13:24-0400 Systolic blood pressure 126 mm[Hg] Asher Hummel MD Work Phone: [facility] 01-07-2022 14:00-0400 Body height 165.2 cm Ma Sand Work Phone: [facility] 01-07-2022 14:00-0400 Body temperature 97.59 [degF] Ma Sand Work Phone: [facility] 01-07-2022 14:00-0400 Body weight 101.15 kg Ma Sand Work Phone: [facility] 01-07-2022 14:00-0400 Diastolic blood pressure 56 mm[Hg] Ma Sand Work Phone: [facility] 01-07-2022 14:00-0400 Heart rate 70 /min Ma Sand Work Phone: [facility] 01-07-2022 14:00-0400 Respiratory rate 16 /min Ma Sand Work Phone: [facility] 01-07-2022 14:00-0400 SaO2% (BldA) [Mass fraction] 92 % Ma Sand Work Phone: [facility] 01-07-2022 14:00-0400 Systolic blood pressure 101 mm[Hg] Ma Sand Work Phone: [facility] 12-21-2021 13:24-0400 Body temperature 97.59 [degF] Chair Hood Work Phone: [facility] 12-21-2021 13:24-0400 Diastolic blood pressure 46 mm[Hg] Chair Hood Work Phone: [facility] 12-21-2021 13:24-0400 Heart rate 54 /min Chair Hood Work Phone: [facility] 12-21-2021 13:24-0400 Respiratory rate 18 /min Chair Hood Work Phone: [facility] 12-21-2021 13:24-0400 SaO2% (BldA) [Mass fraction] 97 % Chair Hood Work Phone: [facility] 12-21-2021 13:24-0400 Systolic blood pressure 127 mm[Hg] Chair Roman Work Phone: [facility] 12-20-2021 13:35-0400 Body temperature 97.7 [degF] Chair Hood Work Phone: [facility] 12-20-2021 13:35-0400 Diastolic blood pressure 55 mm[Hg] Chair Hood Work Phone: [facility] 12-20-2021 13:35-0400 Heart rate 57 /min Chair Roman Work Phone: [facility] 12-20-2021 13:35-0400 Respiratory rate 16 /min Chair Hood Work Phone: [facility] 12-20-2021 13:35-0400 SaO2% (BldA) [Mass fraction] 99 % Chair Hood Work Phone: [facility] 12-20-2021 13:35-0400 Systolic blood pressure 107 mm[Hg] Chair Hood Work Phone: [facility] 12-19-2021 13:32-0400 Body temperature 97.7 [degF] Chair Roman Work Phone: [facility] 12-19-2021 13:32-0400 Diastolic blood pressure 48 mm[Hg] Chair Roman Work Phone: [facility] 12-19-2021 13:32-0400 Heart rate 53 /min Chair Hood Work Phone: [facility] 12-19-2021 13:32-0400 Respiratory rate 18 /min Chair Roman Work Phone: [facility] 12-19-2021 13:32-0400 SaO2% (BldA) [Mass fraction] 97 % Chair Roman Work Phone: [facility] 12-19-2021 13:32-0400 Systolic blood pressure 113 mm[Hg] Chair Roman Work Phone: [facility] 12-17-2021 13:11-0400 Body height 165.2 cm Asher Hummel MD Work Phone: [facility] 12-17-2021 13:11-0400 Body temperature 97.3 [degF] Asher Hummel MD Work Phone: [facility] 12-17-2021 13:11-0400 Body weight 101.24 kg Asher Hummel MD Work Phone: [facility] 12-17-2021 13:11-0400 Diastolic blood pressure 53 mm[Hg] Asher Hummel MD Work Phone: [facility] 12-17-2021 13:11-0400 Heart rate 59 /min Asher Hummel MD Work Phone: [facility] 12-17-2021 13:11-0400 Respiratory rate 16 /min Asher Hummel MD Work Phone: [facility] 12-17-2021 13:11-0400 SaO2% (BldA) [Mass fraction] 88 % Asher Hummel MD Work Phone: [facility] 12-17-2021 13:11-0400 Systolic blood pressure 114 mm[Hg] Asher Hummel MD Work Phone: [facility] 11-29-2021 08:49-0400 Body height 165.2 cm Asher Hummel MD Work Phone: [facility] 11-29-2021 08:49-0400 Body temperature 97.81 [degF] Asher Hummel MD Work Phone: [facility] 11-29-2021 08:49-0400 Diastolic blood pressure 51 mm[Hg] Asher Hummel MD Work Phone: [facility] 11-29-2021 08:49-0400 Heart rate 58 /min Asher Hummel MD Work Phone: [facility] 11-29-2021 08:49-0400 Respiratory rate 16 /min Asher Hummel MD Work Phone: [facility] 11-29-2021 08:49-0400 SaO2% (BldA) [Mass fraction] 99 % Asher Hummel MD Work Phone: [facility] 11-29-2021 08:49-0400 Systolic blood pressure 134 mm[Hg] Asher Hummel MD Work Phone: [facility] 11-08-2021 16:00-0400 Body temperature 98.01 [degF] [facility] Work Phone: [facility] 11-08-2021 16:00-0400 Body weight 109.77 kg [facility] Work Phone: [facility] 11-08-2021 16:00-0400 Diastolic blood pressure 51 mm[Hg] [facility] Work Phone: [facility] 11-08-2021 16:00-0400 Heart rate 80 /min [facility] Work Phone: [facility] 11-08-2021 16:00-0400 Respiratory rate 16 /min [facility] Work Phone: [facility] 11-08-2021 16:00-0400 SaO2% (BldA) [Mass fraction] 92 % [facility] Work Phone: [facility] 11-08-2021 16:00-0400 Systolic blood pressure 123 mm[Hg] [facility] [place] Work Phone: [facility] 11-01-2021 14:03-0400 Body temperature 98.2 [degF] Chair [place] Work Phone: [facility] 11-01-2021 14:03-0400 Diastolic blood pressure 59 mm[Hg] Chair [place] Work Phone: [facility] 11-01-2021 14:03-0400 Heart rate 78 /min Chair Roman Work Phone: [facility] 11-01-2021 14:03-0400 Respiratory rate 18 /min Chair [place] Work Phone: [facility] 11-01-2021 14:03-0400 SaO2% (BldA) [Mass fraction] 98 % Chair Roman Work Phone: [facility] 11-01-2021 14:03-0400 Systolic blood pressure 109 mm[Hg] Chair [place] Work Phone: [facility] 10-30-2021 13:55-0400 Body temperature 97.7 [degF] Chair Roman Work Phone: [facility] 10-30-2021 13:55-0400 Diastolic blood pressure 53 mm[Hg] Chair Roman Work Phone: [facility] 10-30-2021 13:55-0400 Heart rate 82 /min Chair [place] Work Phone: [facility] 10-30-2021 13:55-0400 Respiratory rate 18 /min Chair [place] Work Phone: [facility] 10-30-2021 13:55-0400 SaO2% (BldA) [Mass fraction] 97 % Chair [place] Work Phone: [facility] 10-30-2021 13:55-0400 Systolic blood pressure 107 mm[Hg] Chair Roman Work Phone: [facility] 10-29-2021 14:27-0400 Body temperature 97.81 [degF] Chair [place] Work Phone: [facility] 10-29-2021 14:27-0400 Body weight 109.41 kg Chair Roman Work Phone: [facility] 10-29-2021 14:27-0400 Diastolic blood pressure 40 mm[Hg] Chair Roman Work Phone: [facility] 10-29-2021 14:27-0400 Heart rate 72 /min Chair Roman Work Phone: [facility] 10-29-2021 14:27-0400 Respiratory rate 18 /min Chair [place] Work Phone: [facility] 10-29-2021 14:27-0400 SaO2% (BldA) [Mass fraction] 98 % Chair [place] Work Phone: [facility] 10-29-2021 14:27-0400 Systolic blood pressure 102 mm[Hg] Chair Roman Work Phone: [facility] 10-25-2021 14:02-0400 Diastolic blood pressure 48 mm[Hg] Wilfred Martinez APRN.PROJECT DEVELOPMENT LEADER Work Phone: [facility] 10-25-2021 14:02-0400 Heart rate 80 /min Wilfred Martinez APRN.PROJECT DEVELOPMENT LEADER Work Phone: [facility] 10-25-2021 14:02-0400 Systolic blood pressure 140 mm[Hg] Wilfred Martinez APRN.PROJECT DEVELOPMENT LEADER Work Phone: [facility] 10-25-2021 14:00-0400 Body height 165.2 cm Wilfred Martinez LOG CHIPPER.PROJECT DEVELOPMENT LEADER Work Phone: [facility] 10-25-2021 14:00-0400 Body temperature 97.5 [degF] Wilfred Martinez LOG CHIPPER.PROJECT DEVELOPMENT LEADER Work Phone: [facility] 10-25-2021 14:00-0400 Body weight 108.77 kg Wilfred Martinez LOG CHIPPER.PROJECT DEVELOPMENT LEADER Work Phone: [facility] 10-25-2021 14:00-0400 Respiratory rate 16 /min Wilfred Martinez LOG CHIPPER.PROJECT DEVELOPMENT LEADER Work Phone: [facility] 10-25-2021 14:00-0400 SaO2% (BldA) [Mass fraction] 97 % Wilfred Martinez LOG CHIPPER.PROJECT DEVELOPMENT LEADER Work Phone: [facility] 09-05-2021 15:03-0500 Body temperature 98.71 [degF] Chair [place] Work Phone: [facility] 09-05-2021 15:03-0500 Diastolic blood pressure 69 mm[Hg] Chair [place] Work Phone: [facility] 09-05-2021 15:03-0500 Heart rate 70 /min Chair Roman Work Phone: [facility] 09-05-2021 15:03-0500 Respiratory rate 20 /min Chair [place] Work Phone: [facility] 09-05-2021 15:03-0500 SaO2% (BldA) [Mass fraction] 98 % Chair [place] Work Phone: [facility] 09-05-2021 15:03-0500 Systolic blood pressure 118 mm[Hg] Chair [place] Work Phone: [facility] Encounters Encounter Date Encounter Type Care Provider Facility Start: 04-05-2024 ambulatory Álvaro Barton Facility :[facility] Michael Start: 04-02-2024 ambulatory Mayank Rashid ty:[facility] Start: 01-15-2024 ambulatory Álvaro Barton Facility :[facility] Rodriguez Start: 10-13-2023 End: 10-14-2023 ambulatory Álvaro Barton Facility: [facility] Start: 10-10-2023 End: 10-10-2023 ambulatory KAREN [facility] Start: 10-06-2023 End: 10-06-2023 ambulatory BERNARDA HYDE Not Available Start: 09-29-2023 End: 09-29-2023 ambulatory [facility] Start: 09-22-2023 End: 09-23-2023 ambulatory Mayank DO Facility: Michael Start: 08-29-2023 End: 08-29-2023 ambulatory [facility] Start: 08-19-2023 End: 08-20-2023 ambulatory MATHEUS MACHADO [facility] Start: 07-17-2023 End: 07-17-2023 ambulatory RAYO [facility] Start: 07-15-2023 End: 07-16-2023 ambulatory Álvaro Barton Facility: [facility] Start: 07-11-2023 End: 08-11-2023 ambulatory Álvaro Barton Facility:[id number] Start: 04-16-2023 End: 04-17-2023 ambulatory Álvaro Barton Facility: [facility] Start: 03-17-2023 ambulatory Álvaro Barton Facility : [facility] Rodriguez Start: 03-14-2023 End: 03-14-2023 ambulatory [facility] Start: 03-11-2023 End: 03-12-2023 ambulatory Mhd Yaser Al-Marrawi Facility:[facility] Start: 03-11-2023 End: 03-12-2023 ambulatory Mhd Yaser Al-Marrawi Facility:[facility] Start: 03-11-2023 End: 03-11-2023 Patient encounter procedure Mhd Yaser Al-Marrawi [facility] Start: 03-10-2023 End: 03-11-2023 ambulatory Álvaro Barton Facility:[facility] Jillian sosa Start: 02-13-2023 End: 02-14-2023 ambulatory Álvaro Keke Barton Facility:[facility] Jillian sosa Start: 01-10-2023 End: 01-11-2023 ambulatory Malinda L Earl Facility:[facility] Start: 01-10-2023 End: 01-11-2023 ambulatory Álvaro Barton Facility:[facility] Start: 01-10-2023 End: 01-10-2023 Lab Drop off Malinda L Earl [facility] Start: 01-10-2023 End: 01-10-2023 Lab Drop off Álvaro Barton [facility] Start: 01-06-2023 End: 01-07-2023 ambulatory Álvaro Barton Facility:[facility] Start: 01-06-2023 End: 01-07-2023 ambulatory Álvaro HoldenLianna Mick Facility:[facility] Jillian sosa Start: 12-30-2022 Refill Oumou Wade MD Work Phone: Otolaryngology Comment on above: Refill Request Start: 12-10-2022 End: 12-25-[address] FLASH PEARL . Facility: Start: 12-04-2022 End: 12-24-[address] FLASH PEARL . Facility: Start: 12-03-2022 End: 12-04-[address] FLASH PEARL . Facility: Start: 11-20-2022 End: 11-20-2022 ambulatory ASHER HUMMEL Facility[facility] Start: 11-20-2022 End: 11-20-2022 Office outpatient [...] Start: 11-20-2022 End: 11-21-2022 ambulatory FLASH PEARL Facility:[facility] Jillian weekse Start: 11-20-2022 Telephone encounter Angle parmar RN Work Phone: Hematology/Oncology Comment on above: Care Coordination (H ospice/Treatment Update) Start: 11-19-2022 Telephone encounter Angle parmar RN Work Phone: Hematology/Oncology Comment on above: Care Coordination (P t Update) Start: 11-14-2022 End: 11-17-2022 Evaluation and management of inpatient MARICRUZ BOGGS . Facility: Start: 11-13-2022 End: 11-14-2022 [facility]ulatory [facility] Start: 11-12-2022 End: 11-13-2022 ambulatory Jasper MARIE Facility: [place] Start: 11-06-2022 End: 11-13-[address] DOCTOR TOM Facility:[facility] Start: 11-06-2022 Patient encounter procedure [facility] Provider [facility] Department Start: 11-06-2022 Telephone encounter Asher frances MD Work Phone: [facility] Comment on above: Results Care Coordination (C BC Results) Start: 10-30-2022 End: 10-30-2022 ambulatory Chair Billy Owens Work Phone: Hematology/Oncology Comment on above: Anemia of chronic re nal failure, stage 4 (severe) (HCC) (Primary Dx); 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 loss; MDS (myelodysplastic syndrome) (HCC) Start: 10-25-2022 Patient encounter procedure Ccf Provider [facility] Department Start: 10-25-2022 End: 10-25-[address] DOCTOR TOM Facility:[facility] Start: 10-24-2022 Telephone encounter Angle parmar RN Work Phone: Hematology/Oncology Comment on above: Care Coordination (C BC Results; Transfusion) Start: 10-23-2022 End: 10-23-2022 ambulatory FLASH PEARL Facility:[facility] Start: 10-23-2022 End: 10-23-2022 ambulatory [facility] Work Phone: Hematology/Oncology Comment on above: MDS (myelodysplastic syndrome) (HCC) (Primary Dx) Start: 10-17-2022 Patient encounter procedure [facility]cf Provider [facility] Start: 10-17-2022 Telephone encounter Angle parmar RN Work Phone: Hematology/Oncology Comment on above: Care Coordination (T ransfusion Orders) Start: 10-16-2022 End: 10-16-2022 ambulatory FLASH PEARL Facility:[facility] Start: 10-16-2022 End: 10-16-2022 ambulatory [facility] Work Phone: Hematology/Oncology Comment on above: MDS (myelodysplastic syndrome) (HCC) (Primary Dx); Anemia of chronic renal failure, stage 4 (severe) (HCC) Start: 10-16-2022 Patient encounter procedure Ccf Provider [facility] Start: 10-15-2022 End: 10-15-2022 ambulatory FLASH PEARL Facility:[facility] Start: 10-15-2022 End: 10-15-2022 ambulatory Elysia Esposito MD Work Phone: Hematology/Oncology Comment on above: MDS (myelodysplastic syndrome) (HCC) (Primary Dx); Anemia, unspecified type Start: 10-15-2022 End: 10-15-2022 Patient encounter procedure Elysia Esposito MD Work Phone: [facility] Start: 10-09-2022 End: 10-09-2022 ambulatory ASHER HUMMEL Facility:[facility] Start: 10-09-2022 End: 10-09-2022 ambulatory Chair Elena Owens Work Phone: Hematology/Oncology Comment on above: MDS (myelodysplastic syndrome) (HCC) (Primary Dx); Anemia of chronic renal failure, stage 4 (severe) (HCC); 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 loss Start: 10-03-2022 Patient encounter procedure [facility] Provider [facility] Start: 10-02-2022 End: 10-02-2022 ambulatory FLASH GOULDIGHT Facility:[facility] Start: 10-02-2022 Telephone encounter Asher frances MD Work Phone: [facility] Comment on above: Future Appointment Start: 09-25-2022 End: 10-17-[address] DOCTOR TOM Facility:[facility] Start: 09-25-2022 End: 09-25-2022 ambulatory FLASH PEARL Facility:[facility] Start: 09-25-2022 Telephone encounter Angle parmar RN Work Phone: Hematology/Oncology Comment on above: Care Coordination (C BC Results; Transfusion) Start: 09-18-2022 End: 09-18-2022 ambulatory Chair Cervantes Roman Work Phone: Hematology/Oncology Comment on above: [...] Start: 09-12-2022 Patient encounter procedure [facility] Provider [facility] Department Start: 09-11-2022 End: 09-11-2022 ambulatory FLASH BURR PEARL Facility:[facility] Start: 09-11-2022 Telephone encounter Angle parmar RN Work Phone: Hematology/Oncology Comment on above: Care Coordination (C BC Results) Start: 09-05-2022 End: 09-13-[address] DOCTOR TOM Facility:[facility] Start: 09-04-2022 End: 09-04-2022 ambulatory FLASH PEARL Facility:[facility] Start: 09-04-2022 Patient encounter procedure Ccf Provider [facility] Department Start: 09-04-2022 Telephone encounter Asher frances MD Work Phone: [facility] Comment on above: Future Appointment Start: 08-28-2022 End: 08-29-2022 ambulatory Chair 17 Roman Work Phone: Hematology/Oncology Comment on above: Myelodysplastic synd sommer (HCC) (Primary Dx) Start: 08-28-2022 End: 08-28-2022 Office outpatient visit 25 minutes Asher Hummel MD Work Phone: Hematology/Oncology Comment on above: MDS (myelodysplastic syndrome) (HCC) (Primary Dx); Anemia of chronic renal failure, stage 4 (severe) (HCC) Start: 08-27-2022 End: 08-27-2022 ambulatory FLASH LENO PEARL Facility:[facility] Start: 08-26-2022 Telephone encounter Angle parmar RN Work Phone: Hematology/Oncology Comment on above: Care Coordination (M edication Authorization) Start: 08-22-2022 Patient encounter procedure Ccf Provider [facility] Department Start: 08-22-2022 Telephone encounter Angle parmar RN Work Phone: Hematology/Oncology Comment on above: Care Coordination (T ransfusion Question) Start: 08-21-2022 Telephone encounter Wilfred smith APRN.CNP Work Phone: [facility] Comment on above: Future Appointment Start: 08-21-2022 [...] End: 08-21-2022 Patient encounter procedure Wilfred Martinez APRN.PROJECT DEVELOPMENT LEADER Work Phone: [facility] Start: 08-14-2022 End: 08-14-2022 Patient encounter procedure Wilfred Martinez APRN.PROJECT DEVELOPMENT LEADER Work Phone: [facility] Start: 08-14-2022 Telephone encounter Wilfred smith APRN.PROJECT DEVELOPMENT LEADER Work Phone: [facility] Comment on above: Future Appointment [...] Start: 08-08-2022 Patient encounter procedure [facility]cf Provider [facility] Department Start: 08-08-2022 End: 08-22-[address] SORIA [facility] Facility: Start: 08-07-2022 End: 08-07-2022 ambulatory Chair 18 Roman Work Phone: Hematology/Oncology [...] Start: 07-23-2022 End: 07-23-2022 ambulatory ASHER HUMMEL Facility:[facility] Start: 07-23-2022 End: 07-23-2022 ambulatory Chair Billy Owens Work Phone: Hematology/Oncology Comment on above: Myelodysplastic synd sommer (HCC) (Primary Dx) MDS (myelodysplastic syndrome) (HCC) (Primary Dx); 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 transfusions; Anemia of chronic renal failure, stage 4 (severe) (HCC); Myelodysplastic syndrome (HCC) Start: 07-23-2022 End: 07-23-2022 Patient encounter procedure Ccf Provider [facility] Start: 07-23-2022 Telephone encounter Asher frances MD Work Phone: [facility] Comment on above: Transfusion Start: 07-18-2022 Telephone encounter Angle Kamara Hematology/Oncology Comment on above: Care Coordination (O xygen Question) Start: 07-16-2022 End: 07-16-2022 ambulatory FLASH WILSONGERARDO PEARL Facility:[facility] Start: 07-16-2022 End: 07-16-2022 ambulatory Elysia Esposito MD Work Phone: Hematology/Oncology Comment on above: MDS (myelodysplastic syndrome) (HCC) (Primary Dx) Start: 07-16-2022 End: 07-16-2022 Patient encounter procedure Elysia Esposito MD Work Phone: [facility] Start: 07-15-2022 End: 07-16-2022 ambulatory ASHER HUMMEL Facility:[facility] Start: 07-15-2022 Telephone encounter Asher frances MD Work Phone: [facility] Comment on above: Future Appointment Start: 07-15-2022 [...] encounter procedure Asher Hummel MD Work Phone: [employer] Start: 07-11-2022 Telephone encounter Angle Kamara Hematology/Oncology Comment on above: Care Coordination (C BC Results) Start: 07-09-2022 End: 07-10-2022 ambulatory ASHER HUMMEL Facility:[facility] Start: 07-09-2022 End: 07-09-2022 ambulatory Chair 18 Roman Work Phone: Hematology/Oncology Comment on above: Myelodysplastic synd sommer (HCC) (Primary Dx) Start: 07-09-2022 Patient encounter procedure Ccf Provider [facility] Start: 07-08-2022 End: 07-25-[address] RADHA SANDOVAL Facility: Start: 07-08-2022 End: 07-08-2022 ambulatory WILFRED MARTINEZ Facility:[facility] Start: 07-08-2022 End: 07-08-2022 ambulatory Radha [...] encounter Radha calzada PA-C Work Phone: [facility] Comment on above: Transfusion Start: 07-02-2022 End: 07-02-2022 ambulatory FLASH PEARL Facility:[facility] Start: 07-02-2022 End: 07-02-2022 ambulatory Chair Genaro Owens Work Phone: Hematology/Oncology Comment on above: Myelodysplastic synd sommer (HCC) (Primary Dx) Start: 07-01-2022 End: 07-01-2022 ambulatory ASHER HUMMEL Facility:[facility] Start: 07-01-2022 End: 07-01-2022 ambulatory Asher [...] Start: 06-24-2022 End: 06-24-2022 ambulatory FLASH PEARL Facility:[facility] Start: 06-24-2022 End: 06-24-2022 ambulatory Chair [...] encounter Asher frances MD Work Phone: [facility] Comment on above: Future Appointment Start: 06-17-2022 End: 06-17-2022 ambulatory FLASH PEARL Facility:[facility] Start: 06-17-2022 End: 06-17-2022 ambulatory Asher [...] Phone: Hematology/Oncology Comment on above: Myelodysplastic synd somemr (HCC) (Primary Dx); CRF (chronic renal failure), stage 4 (severe) (HCC); Anemia of chronic renal failure, stage 4 (severe) (HCC); 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 loss; CKD (chronic kidney disease) stage 4, GFR 15-29 ml/min (HCC) MDS (myelodysplastic syndrome) (HCC) (Primary Dx) Start: 06-10-2022 End: 06-10-2022 Patient encounter procedure Ccf Provider [facility] Department Start: 06-07-2022 Telephone encounter Asher frances MD Work Phone: Hematology/Oncology Comment on above: Critical Results Start: 06-04-2022 Patient encounter procedure Ccf Provider [facility] Department Start: 06-04-2022 End: 06-26-[address] DOCTOR TOM Facility: Start: 06-03-2022 End: 06-03-2022 ambulatory ASHER HUMMEL Facility:[facility] Start: 06-03-2022 Telephone encounter Asher frances MD Work Phone: [facility] Comment on above: Future Appointment Start: 06-03-2022 [...] [facility] Start: 05-28-2022 End: 05-29-2022 ambulatory Chair 17 Roman Work Phone: Hematology/Oncology [...] Start: 05-21-2022 Patient encounter procedure [facility]cf Provider [facility] Department Start: 05-21-2022 End: 05-21-2022 ambulatory ASHER HUMMEL Facility:[facility] Start: 05-21-2022 End: 05-21-2022 ambulatory Chair 18 [place] Work Phone: Hematology/Oncology Comment on above: Myelodysplastic synd sommer (HCC) (Primary Dx) Start: 05-20-2022 End: 05-21-2022 ambulatory Chair Billy Owens Work Phone: Hematology/Oncology [...] encounter Asher frances MD Work Phone: [facility] Comment on above: Future Appointment Care Coordination (A ntiemetics) Start: 05-14-2022 Telephone encounter Angle Kamara Hematology/Oncology Comment on above: Care Coordination (T reatment Planning) Start: 05-13-2022 End: 05-14-2022 ambulatory ASHER HUMMEL Facility:[facility] Start: 05-13-2022 End: 05-13-2022 ambulatory [facility] Work Phone: Hematology/Oncology Comment on above: CRF (chronic renal f ailure), stage 4 (severe) (HCC) (Primary Dx); Anemia of chronic renal failure, stage 4 (severe) (HCC); 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 loss; CKD (chronic kidney disease) stage 4, GFR 15-29 ml/min (HCC); Myelodysplastic syndrome (HCC) Start: 05-07-2022 Patient encounter procedure [facility] Provider [facility] Start: 05-07-2022 End: 05-24-[address] DOCTOR TOM Facility: Start: 05-06-2022 End: 05-06-2022 ambulatory FLASH LENO PEARL Facility:[facility] Start: 05-06-2022 End: 05-06-2022 ambulatory [facility] [...] encounter procedure Asher Hummel MD Work Phone: [employer] Start: 05-06-2022 Telephone encounter Asher frances MD Work Phone: [facility] Comment on above: Transfusion Start: [...] encounter procedure Asher Hummel MD Work Phone: [employer] Start: 04-25-2022 End: 04-25-2022 Patient encounter procedure [facility] Provider [facility] Start: 04-25-2022 End: 04-25-2022 ambulatory ASHER HUMMEL Facility:[facility] Start: 04-25-2022 End: 04-25-2022 ambulatory Asher Hummel MD Work Phone: Hematology/Oncology Comment on above: Myelodysplastic synd sommer (HCC) (Primary Dx); CRF (chronic renal failure), stage 4 (severe) (HCC) Start: 04-23-2022 Telephone encounter Radha calzada PA-C Work Phone: Hematology/Oncology Comment on above: Patient Update Start: 04-22-2022 End: 04-22-2022 ambulatory ASHER HUMMEL Facility:[facility] Start: 04-22-2022 End: 04-23-[address] RADHA SANDOVAL Facility: Start: 04-18-2022 End: 04-18-2022 ambulatory ASHER HUMMEL Facility:[facility] Start: 04-18-2022 End: 04-18-2022 ambulatory Elysia Esposito MD Work Phone: Hematology/Oncology Comment on above: MDS (myelodysplastic syndrome) (HCC) (Primary Dx) Start: 04-18-2022 End: 04-18-2022 Patient encounter procedure Elysia Esposito MD Work Phone: [facility] Start: 04-15-2022 End: 04-15-2022 ambulatory ASHER HUMMEL Facility:[facility] Start: 04-15-2022 End: 04-15-2022 ambulatory [facility] Work Phone: Hematology/Oncology Comment on above: Malignant neoplasm o f prostate (HCC) (Primary Dx) Start: 04-15-2022 Telephone encounter Asher frances MD Work Phone: Hematology/Oncology Comment on above: Results (CBC/) Start: 04-08-2022 End: 04-09-2022 ambulatory ASHER ESTEPHANIE Facility:[facility] Start: 04-08-2022 End: 04-08-2022 ambulatory [facility] Work Phone: Hematology/Oncology Comment on above: Anemia [...] End: 04-08-2022 Patient encounter procedure [facility] Provider [facility] Department Start: 04-03-2022 End: 04-04-[address] WILFRED MARTINEZ Facility: Start: 04-03-2022 Patient encounter procedure [facility]cf Provider [facility] Department Start: 04-03-2022 Telephone encounter Fide Fields Hematology/Oncology Comment on above: Results Start: 04-02-2022 End: 04-02-2022 ambulatory ASHER HUMMEL Facility:[facility] Start: 04-02-2022 Telephone encounter Asher frances MD Work Phone: [facility] Comment on above: Results Future Appointment Start: 03-25-2022 End: 03-26-2022 ambulatory Lab/[place] Work Phone: Hematology/Oncology Comment on above: CRF [...] (R eferral) Start: 03-18-2022 End: 03-18-2022 ambulatory [facility] Facility[facility] Start: 03-18-2022 Telephone encounter Asher frances MD Work Phone: [facility] Comment on above: Care Coordination (L ab results/) Start: 03-15-2022 End: 03-15-2022 ambulatory Chair 17 Roman Work Phone: Hematology/Oncology Comment on above: Myelodysplastic synd sommer (HCC) (Primary Dx) Start: 03-14-2022 Telephone encounter Angle parmra RN Work Phone: Hematology/Oncology Comment on above: Care Coordination (A ppointment) Start: 03-14-2022 End: 03-15-2022 ambulatory Chair 17 Roman Work Phone: Hematology/Oncology Comment on above: Myelodysplastic synd sommer (HCC) (Primary Dx) Start: 03-13-2022 End: 03-13-2022 ambulatory [facility] Facility[facility] Start: 03-13-2022 End: 03-13-2022 ambulatory Chair 17 Roman Work Phone: Hematology/Oncology Comment on above: Myelodysplastic synd sommer (HCC) (Primary Dx) Start: 03-12-2022 End: 03-13-2022 ambulatory [facility] Facility[facility] Start: 03-12-2022 Patient encounter procedure [facility] Provider [facility] Start: 03-11-2022 End: 03-12-2022 ambulatory [facility] Facility[facility] Start: 03-11-2022 End: 03-11-2022 ambulatory Chair [...] Start: 03-04-2022 End: 03-04-2022 ambulatory FLASH PEARL Facility:[facility] Start: 02-28-2022 End: 03-27-[address] DOCTOR TOM Facility: Start: 02-28-2022 End: 02-28-2022 ambulatory ASHER HUMMEL Facility:[facility] Start: 02-28-2022 Telephone encounter Asher frances MD Work Phone: [facility] Comment on above: Transfusion Start: 02-25-2022 End: 02-25-2022 ambulatory ASHER HUMMEL Facility:[facility] Start: 02-25-2022 End: 02-25-2022 ambulatory [facility] Work Phone: Hematology/Oncology Comment on above: CRF (chronic renal f ailure), stage 4 (severe) (HCC) (Primary Dx); Anemia of chronic renal failure, stage 4 (severe) (HCC); 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 loss; CKD (chronic kidney disease) stage 4, GFR 15-29 ml/min (HCC); Myelodysplastic syndrome (HCC) Start: 02-18-2022 End: 02-18-2022 ambulatory FLASH PEARL Facility:[facility] Start: 02-15-2022 End: 02-15-2022 ambulatory Chair Billy Owens Work Phone: Hematology/Oncology Comment on above: Myelodysplastic synd sommer (HCC) (Primary Dx); CRF (chronic renal failure), stage 4 (severe) (HCC) Start: 02-14-2022 End: 02-14-2022 ambulatory Chair Billy Owens Work Phone: Hematology/Oncology Comment on above: Myelodysplastic synd sommer (HCC) (Primary Dx) Start: 02-13-2022 End: 02-13-2022 ambulatory Chair Billy Owens Work Phone: Hematology/Oncology Comment on above: Myelodysplastic synd sommer (HCC) (Primary Dx) Start: 02-12-2022 End: 02-13-2022 ambulatory Chair Billy Owens Work Phone: Hematology/Oncology [...] Radha Sandoval PA-C Work Phone: [facility] Start: 02-04-2022 End: 02-05-[address] NONE LISTED REQUEST Facility: Start: 02-04-2022 End: 02-04-2022 ambulatory ASHER HUMMEL Facility[facility] Start: 02-04-2022 Telephone encounter Asher frances MD Work Phone: [facility] Comment on above: Future Appointment Care Coordination (C ritical Results) Start: 02-04-2022 End: 02-04-2022 ambulatory Lab/[place] Work Phone: Hematology/Oncology Comment on above: Anemia of chronic re nal failure, stage 4 (severe) (HCC) (Primary Dx) Start: 01-30-2022 End: 01-30-2022 ambulatory ASHER HUMMEL Facility[facility] Start: 01-30-2022 End: 01-30-2022 ambulatory Lab/[place] Work Phone: Hematology/Oncology Comment on above: CRF (chronic renal f ailure), stage 4 (severe) (HCC) (Primary Dx); Anemia of chronic renal failure, stage 4 (severe) (HCC); 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 loss; CKD (chronic kidney disease) stage 4, GFR 15-29 ml/min (HCC); Myelodysplastic syndrome (HCC) Start: 01-21-2022 End: 01-21-2022 ambulatory Chair 21 Machine Talker Work Phone: Hematology/Oncology Comment on above: Myelodysplastic synd sommer (HCC); CRF (chronic renal failure), stage 4 (severe) (HCC); Anemia of chronic renal failure, stage 4 (severe) (HCC); 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 transfusions Start: 01-18-2022 End: 01-18-2022 ambulatory Chair 17 Machine Talker Work Phone: Hematology/Oncology Comment on above: CRF (chronic renal f ailure), stage 4 (severe) (HCC) (Primary Dx); Myelodysplastic syndrome (HCC) Start: 01-17-2022 End: 01-17-2022 ambulatory Chair 17 Machine Talker Work Phone: Hematology/Oncology Comment on above: Myelodysplastic synd sommer (HCC) (Primary Dx) Start: 01-16-2022 End: 01-17-2022 ambulatory Chair 17 Machine Talker Work Phone: Hematology/Oncology Comment on above: Myelodysplastic synd sommer (HCC) (Primary Dx) Start: 01-15-2022 End: 01-16-2022 ambulatory Chair 17 Machine Talker Work Phone: Hematology/Oncology Comment on above: Myelodysplastic synd sommer (HCC) (Primary Dx) Start: 01-15-2022 Patient encounter procedure Ccf Provider [facility] Start: 01-14-2022 End: 01-14-2022 ambulatory ASHER HUMMEL Facility[facility] Start: 01-14-2022 Telephone encounter Asher frances MD Work Phone: [facility] Comment on above: Future Appointment Lab Orders [...] 01-07-2022 End: 01-08-2022 ambulatory FLASH LENO PEARL Facility[facility] Start: 01-07-2022 End: 01-07-2022 Nursing evaluation of patient and report Gisela Bray Work Phone: Hematology/Oncology Comment on above: Anemia of chronic re nal failure, stage 4 (severe) (HCC) (Primary Dx); 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 loss; Myelodysplastic syndrome (HCC) Start: 01-01-2022 Telephone encounter Miriam Elizabeth RN Hematology/Oncology Comment on above: B12 injections Start: 12-21-2021 End: 12-21-2021 ambulatory Chair 17 Hood Work Phone: Hematology/Oncology Comment on above: Myelodysplastic synd sommer (HCC) (Primary Dx) Start: 12-20-2021 End: 12-20-2021 ambulatory Chair Billy Owens Work Phone: Hematology/Oncology Comment on above: Myelodysplastic synd sommer (HCC) (Primary Dx) Start: 12-19-2021 End: 12-19-2021 ambulatory Chair Billy Owens Work Phone: Hematology/Oncology Comment on above: Myelodysplastic synd sommer (HCC) (Primary Dx) Start: 12-17-2021 End: 12-17-2021 ambulatory Chair Billy Owens Work Phone: Hematology/Oncology [...] encounter procedure Asher Hummel MD Work Phone: [employer] Start: 11-29-2021 End: 11-29-2021 ambulatory Asher Hummel [...] encounter procedure Asher Hummel MD Work Phone: [employer] Start: 11-28-2021 Telephone encounter Angle parmar RN Work Phone: Hematology/Oncology Comment on above: Care Coordination (D ischarge Follow Up Call) Start: 11-20-2021 Telephone encounter Angle parmar RN Work Phone: Hematology/Oncology Comment on above: Care Coordination (H ospital Admission) Start: 11-18-2021 End: 11-25-2021 Evaluation and management of inpatient KELSEY RAMIREZ Facility:[facility] Start: 11-16-2021 Patient encounter procedure Ccf Provider [facility] Department Start: 11-16-2021 Telephone encounter Angle [...] Start: 10-30-2021 End: 10-30-2021 ambulatory Chair 17 Hood Work Phone: Hematology/Oncology Comment on above: Myelodysplastic synd sommer (HCC) (Primary Dx) Start: 10-29-2021 End: 10-29-2021 ambulatory Chair 18 Hood Work Phone: Hematology/Oncology Comment on above: Myelodysplastic synd sommer (HCC) (Primary Dx) Start: 10-29-2021 Telephone encounter Angle parmar RN Work Phone: Hematology/Oncology Comment on above: Care Coordination (T ransfusion Update) Start: 10-26-2021 Patient encounter procedure Ccf Provider [facility] Department Start: 10-25-2021 End: 10-25-2021 ambulatory [...] End: 05-29-2020 Patient encounter procedure External Provider [facility] Start: 05-29-2020 Results Only External Provider Eduardo nal-[facility] Start: 06-23-2018 End: 06-24-2018 Patient encounter procedure Evette Sheriff Facility:[facility] Start: 06-11-2018 End: 06-12-2018 Patient encounter procedure Evette Sheriff Facility:[facility] Start: 05-28-2018 End: 05-29-2018 Patient encounter procedure MYLENE ANDREW Facility:[facility] Procedures Date Procedure Procedure Detail Performing Clinician Start: 11-14-2022 Transfusion of Nonautologous Red Blood Cells into Peripheral Vein, Percutaneous Approach DR SORIA [facility] [place] Start: 05-27-2022 CBC + DIFF Asher frances [...] MD Work Phone: Start: 11-17-2021 Antibody screen YOUNGSO CHERIE RAMIREZ Comment on above: Performed By: #### [id number] Start: 11-01-2021 Blood count complete auto&auto difrntl wbc Asher Hummel MD Work Phone: Start: 05-29-2020 EXTERNAL IMAGING [employer]in [employer] al Provider Start: 05-29-2020 End: 05-29-2020 EXTERNAL LAB External Provider Start: 05-29-2020 EXTERNAL PROCEDURE Exte rnal Provider Start: 10-23-2011 cysto/ud, bilateral RG Pyelogram Álvaro Barton Cataract care Álvaro Barton Placement of stent i n cardiac conduit Álvaro Barton Comment on above: 2x Plan of Treatment Date Care Activity Detail Author Start: 11-20-2025 DIABETES SCREEN DIABETES SCREEN [facility] Start: 11-06-2025 DIABETES SCREEN DIABETES SCREEN [facility] Start: 10-30-2025 DIABETES SCREEN DIABETES SCREEN [facility] Start: 10-23-2025 DIABETES SCREEN DIABETES SCREEN [facility] Start: 10-16-2025 DIABETES SCREEN DIABETES SCREEN [facility] Start: 10-02-2025 DIABETES SCREEN DIABETES SCREEN [facility] Start: 09-25-2025 DIABETES SCREEN DIABETES SCREEN [facility] Start: 09-18-2025 DIABETES SCREEN DIABETES SCREEN [facility] Start: 09-11-2025 DIABETES SCREEN DIABETES SCREEN [facility] Start: 09-04-2025 DIABETES SCREEN DIABETES SCREEN [facility] Start: 08-28-2025 DIABETES SCREEN DIABETES SCREEN [facility] Start: 08-21-2025 DIABETES SCREEN DIABETES SCREEN [facility] Start: 08-14-2025 DIABETES SCREEN DIABETES SCREEN [facility] Start: 08-07-2025 DIABETES SCREEN DIABETES SCREEN [facility] Start: 07-30-2025 DIABETES SCREEN DIABETES SCREEN [facility] Start: 07-23-2025 DIABETES SCREEN DIABETES SCREEN [facility] Start: 10-25-2024 DIABETES SCREEN DIABETES SCREEN [facility] Start: 10-11-2024 DIABETES SCREEN DIABETES SCREEN [facility] Start: 09-03-2024 DIABETES SCREEN DIABETES SCREEN [facility] Start: 08-14-2022 End: 10-14-2022 Hematocrit [Volume Fraction] of Blood HEMATOCRIT (HCT) Lab Routine Myelodysplastic syndrome (HCC) Expected: 08/14/2022, Expires: 10/14/2022 [facility] Work Phone: Comment on above: Expected: 08/14/2022, Expires: Start: 08-14-2022 End: 10-14-2022 Hemoglobin [Mass/volume] in Blood HEMOGLOBIN (HGB) Lab Routine Myelodysplastic syndrome (HCC) Expected: 08/14/2022, Expires: 10/14/2022 [facility] Work Phone: Comment on above: Expected: 08/14/2022, Expires: 3 Start: 08-13-2022 End: 10-13-2022 CBC W Auto Differential panel - Blood CBC + DIFF Lab Routine 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 loss Expected: 08/13/2022, Expires: 10/13/2022 [facility] Work Phone: Comment on above: Expected: 08/13/2022, Expires: 3 Start: 08-13-2022 End: 10-13-2022 Comprehensive metabolic 2000 panel - Serum or Plasma COMP METABOLIC PANEL Lab Routine 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 loss Expected: 08/13/2022, Expires: 10/13/2022 [facility] Work Phone: Comment on above: Expected: 08/13/2022, Expires: 3 Start: 08-13-2022 End: 10-13-2022 Lactate dehydrogenase [Enzymatic activity/volume] in Serum or Plasma LD LACTATE DEHYDRO Lab Routine 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 loss Expected: 08/13/2022, Expires: 10/13/2022 [facility] Work Phone: Comment on above: Expected: 08/13/2022, Expires: 3 Start: 07-30-2022 End: 09-29-2022 CBC W Auto Differential panel - Blood CBC + DIFF Lab Routine MDS (myelodysplastic syndrome) (HCC) Anemia of chronic renal failure, stage 4 (severe) (HCC) CRF (chronic renal failure), stage 4 (severe) (HCC) Expected: 07/30/2022, Expires: 09/29/2022 [facility] Work Phone: Comment on above: Expected: 07/30/2022, Expires: 3 Start: 07-30-2022 End: 09-29-2022 Comprehensive metabolic 2000 panel - Serum or Plasma COMP METABOLIC PANEL Lab Routine MDS (myelodysplastic syndrome) (HCC) Anemia of chronic renal failure, stage 4 (severe) (HCC) CRF (chronic renal failure), stage 4 (severe) (HCC) Expected: 07/30/2022, Expires: 09/29/2022 [facility] Work Phone: Comment on above: Expected: 07/30/2022, Expires: 3 Start: 07-28-2022 ADVANCE DIRECTIVE DISCUSSION ADVANCE DIRECTIVE DISCUSSION [facility] Start: 07-28-2022 DEPRESSION ASSESSMENT DEPRESSION ASSESSMENT [facility] Start: 07-08-2022 End: 09-07-2022 CBC W Auto Differential panel - Blood CBC + DIFF Lab Routine MDS (myelodysplastic syndrome) (HCC) CRF (chronic renal failure), stage 4 (severe) (HCC) Expected: 07/08/2022, Expires: 09/07/2022 [facility] Work Phone: Comment on above: Expected: 07/08/2022, Expires: 3 Start: 07-08-2022 End: 09-07-2022 Comprehensive metabolic 2000 panel - Serum or Plasma COMP METABOLIC PANEL Lab Routine MDS (myelodysplastic syndrome) (HCC) CRF (chronic renal failure), stage 4 (severe) (HCC) Expected: 07/08/2022, Expires: 09/07/2022 [facility] Work Phone: Comment on above: Expected: 07/08/2022, Expires: 3 Start: 06-24-2022 End: 08-24-2022 CBC W Auto Differential panel - Blood CBC + DIFF Lab Routine MDS (myelodysplastic syndrome) (HCC) CRF (chronic renal failure), stage 4 (severe) (HCC) Anemia of chronic renal failure, stage 4 (severe) (HCC) Expected: 06/24/2022, Expires: 08/24/2022 [facility] Work Phone: Comment on above: Expected: 06/24/2022, Expires: 3 Start: 06-24-2022 End: 08-24-2022 Comprehensive metabolic 2000 panel - Serum or Plasma COMP METABOLIC PANEL Lab Routine MDS (myelodysplastic syndrome) (HCC) CRF (chronic renal failure), stage 4 (severe) (HCC) Anemia of chronic renal failure, stage 4 (severe) (HCC) Expected: 06/24/2022, Expires: 08/24/2022 [facility] Work Phone: Comment on above: Expected: 06/24/2022, Expires: 3 Start: 06-10-2022 End: 08-10-2022 CBC W Auto Differential panel - Blood CBC + DIFF Lab Routine MDS (myelodysplastic syndrome) (HCC) Expected: 06/10/2022, Expires: 08/10/2022 [facility] Work Phone: Comment on above: Expected: 06/10/2022, Expires: 3 Start: 06-10-2022 End: 08-10-2022 Comprehensive metabolic 2000 panel - Serum or Plasma COMP METABOLIC PANEL Lab Routine MDS (myelodysplastic syndrome) (HCC) Expected: 06/10/2022, Expires: 08/10/2022 [facility] Work Phone: Comment on above: Expected: 06/10/2022, Expires: 3 Start: 04-25-2022 End: 06-25-2022 MISC SEND OUT TST 1 MISC SEND OUT TST 1 Lab Routine Myelodysplastic syndrome (HCC) Expected: 04/25/2022, Expires: 06/25/2022 [facility] Work Phone: Comment on above: Expected: 04/25/2022, Expires: 2 Start: 03-28-2022 Influenza vaccination INFLUENZA (#1) [facility] Start: 02-11-2022 End: 04-13-2022 CBC W Auto Differential panel - Blood CBC + DIFF Lab Routine Anemia of chronic renal failure, stage 4 (severe) (HCC) Myelodysplastic syndrome (HCC) Expected: 02/11/2022, Expires: 04/13/2022 [facility] Work Phone: Comment on above: Expected: 02/11/2022, Expires: 2 Start: 02-11-2022 End: 04-13-2022 Comprehensive metabolic 2000 panel - Serum or Plasma COMP METABOLIC PANEL Lab Routine Anemia of chronic renal failure, stage 4 (severe) (HCC) Myelodysplastic syndrome (HCC) Expected: 02/11/2022, Expires: 04/13/2022 [facility] Work Phone: Comment on above: Expected: 02/11/2022, Expires: Start: 12-02-2021 End: 11-29-2022 CBC W Auto Differential panel - Blood CBC + DIFF Lab Routine Myelodysplastic syndrome (HCC) CRF (chronic renal failure), stage 4 (severe) (HCC) Anemia of chronic renal failure, stage 4 (severe) (HCC) 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 transfusions Expected: 12/02/2021 (Approximate), Expires: 11/29/2022 [facility] Work Phone: Comment on above: [...] cell transfusions Expected: 12/02/2021 (Approximate), Expires: 11/29/2022 [facility] Work Phone: Comment on above: Expected: 12/02/2021 (Approximate), Expi res: 11/29/2022 Start: 07-28-2021 ADVANCE DIRECTIVE DISCUSSION ADVANCE DIRECTIVE DISCUSSION [facility] Start: 07-28-2021 DEPRESSION ASSESSMENT DEPRESSION ASSESSMENT [facility] Start: 03-28-2020 Influenza vaccination INFLUENZA (#1) [facility] Start: 05-08-2015 PNEUMOCOCCAL: 65+ (3 - PCV) PNEUMOCOCCAL: 65+ (3 - PCV) [facility] Start: 06-27-2008 DIABETES SCREEN DIABETES SCREEN [facility] Start: 07-13-2007 PNEUMOVAX AGE 65 AND OVER WITH 5YR LOOKBACK (#1) PNEUMOVAX AGE 65 AND OVER WITH 5YR LOOKBACK (#1) [facility] Start: 06-27-2006 Hepatitis B surface antibody level LDL CHOLESTEROL [facility] Start: 12-06-2003 ADVANCE DIRECTIVE DISCUSSION ADVANCE DIRECTIVE DISCUSSION [facility] Start: 1988 SHINGRIX VACCINE (1 of 2) SHINGRIX VACCINE (1 of 2) [facility] Start: 1957 SHINGRIX VACCINE (1 of 2) SHINGRIX VACCINE (1 of 2) [facility] Start: 1957 Urine microalbumin profile DTAP,TDAP,TD (1 - Tdap) [facility] Start: 1948 3 comp foot exam completed DIABETIC FOOT EXAM [facility] Start: 1948 Hepatitis B screening URINE ALBUMIN:CREATININE RATIO [facility] Start: 1948 Hepatitis C antibody, confirmatory test DILATED RETINAL EXAM [facility] Start: 12-06-1943 Hemoglobin A1c/Hemoglobin.total in Blood HBA1C [facility] BONE MARROW ANALYSIS [facility] Work Phone: Comment on above: Ordered: 04/25/2022 BONE MARROW CHROMOSO ME ANAL [facility] Work Phone: Comment on above: Ordered: 04/25/2022 CBC W Auto Different ial panel - Blood CBC + DIFF Lab Routine Myelodysplastic syndrome (HCC) CRF (chronic renal failure), stage 4 (severe) (HCC) Anemia of chronic renal failure, stage 4 (severe) (HCC) 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 transfusions 01/21/2022 1:47 PM EDT [facility] Work Phone: CBC W Auto Different ial panel - Blood CBC + DIFF Lab Routine Myelodysplastic syndrome (HCC) CRF (chronic renal failure), stage 4 (severe) (HCC) 02/15/2022 1:31 PM EDT [facility] Work Phone: CBC W Auto Different ial panel - Blood CBC + DIFF Lab Routine Myelodysplastic syndrome (HCC) CRF (chronic renal failure), stage 4 (severe) (HCC) Ordered: 04/25/2022 [facility] Work Phone: Comment on above: Ordered: 04/25/2022 CBC W Auto Different ial panel - Blood CBC + DIFF Lab Routine Myelodysplastic syndrome (HCC) CRF (chronic renal failure), stage 4 (severe) (HCC) 05/27/2022 1:47 PM EDT [facility] Work Phone: End: 08-13-2023 CBC W Auto Differential panel - Blood CBC + DIFF Lab Routine 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 loss MDS (myelodysplastic syndrome) (HCC) Anemia of chronic renal failure, stage 4 (severe) (HCC) 2x per week for 100 Occurrences starting 08/13/2022 until 08/13/2023 [facility] Work Phone: Comment on above: 2x per week for 100 Occurrences starting 08/13/2022 until 08/13/2023 End: 08-13-2023 Comprehensive metabolic 2000 panel - Serum or Plasma COMP METABOLIC PANEL Lab Routine 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 loss MDS (myelodysplastic syndrome) (HCC) Anemia of chronic renal failure, stage 4 (severe) (HCC) 2x per week for 100 Occurrences starting 08/13/2022 until 08/13/2023 [facility] Work Phone: Comment on above: 2x per week for 100 Occurrences starting 08/13/2022 until 08/13/2023 DNA EXTRACTION BONE MARROW (BUFFY COAT) [facility] Work Phone: Comment on above: Ordered: 04/25/2022 FLOW CYTOMETRY BONE MARROW HOLD (BMHOLD) FLOW CYTOMETRY BONE MARROW HOLD (BMHOLD) Lab Routine Myelodysplastic syndrome (HCC) CRF (chronic renal failure), stage 4 (severe) (HCC) Ordered: 04/25/2022 [facility] Work Phone: Comment on above: Ordered: 04/25/2022 FLT3 ITD HN BONE MARROW [facility] Work Phone: Comment on above: Ordered: 04/25/2022 MYELOID NGS PANEL NATALIE [facility] Work Phone: Comment on above: Ordered: 04/25/2022 MYELOID NGS PANEL NATALIE [facility] Work Phone: Comment on above: Ordered: 04/25/2022 MYELOPROLIFERATIVE NEOPLASM PANEL MARROW MYELOPROLIFERATIVE NEOPLASM PANEL MARROW Lab Routine Myelodysplastic syndrome (HCC) CRF (chronic renal failure), stage 4 (severe) (HCC) Ordered: 04/25/2022 [facility] Work Phone: Comment on above: Ordered: 04/25/2022 [facility] Immunizations Immunization Date Immunization Notes Care Provider [facility] 05-20-2022 influenza virus vacc ine, unspecified formulation Álvaro Barton [facility] 05-20-2022 influenza, high-dose , quadrivalent vaccine (FLUZONE HIGH DOSE QUADRIVALENT) Asher Hummel MD Work Phone: [facility] 06-29-2021 SARS-CoV-2 (COVID-19 ) [id number] vaccine Álvaro Barton [facility] 05-02-2021 influenza virus vacc ine, unspecified formulation Álvaro Barton [facility] 05-02-2021 influenza, high-dose , quadrivalent vaccine (FLUZONE HIGH DOSE QUADRIVALENT) Chair Brayusky Work Phone: [facility] 09-25-2020 COVID-19 vaccine, fu ll dose (MODERNA) Chair Machine Talker Work Phone: [facility] 09-16-2020 COVID-19 vaccine, ag e 12+ yr (PFIZER-BIONTECH - PURPLE TOP) Chair Hood Work Phone: [facility] 09-14-2020 COVID-19 vaccine, fu ll dose (MODERNA) Chair Hood Work Phone: [facility] 08-28-2020 COVID-19 vaccine, fu ll dose (MODERNA) Chair Machine Talker Work Phone: [facility] 08-25-2020 COVID-19 vaccine, ag e 12+ yr (PFIZER-BIONTECH - PURPLE TOP) Chair Machine Talker Work Phone: [facility] 08-17-2020 COVID-19 vaccine, fu ll dose (MODERNA) [employer] Work Phone: [facility] 06-23-2019 influenza virus vacc ine, unspecified formulation [email or web address] [facility] 06-23-2019 Seasonal, quadrivale nt, recombinant, injectable influenza vaccine, preservative free Chair Hood Work Phone: [facility] 05-10-2019 influenza virus vacc ine, unspecified formulation [email or web address] [facility] 05-10-2019 influenza, seasonal, injectable [employer]APE Work Phone: [facility] 05-28-2018 influenza virus vacc ine, unspecified formulation [email or web address] [facility] 05-28-2018 influenza, high dose seasonal, preservative-free [employer] Work Phone: [facility] 06-18-2015 influenza virus vacc ine, unspecified formulation [email or web address] [facility] 06-18-2015 influenza, seasonal, injectable, preservative free Chair Hood Work Phone: [facility] 05-08-2014 influenza virus vacc ine, unspecified formulation Álvaro Barton [facility] [facility]2014 influenza, seasonal, injectable, preservative free Chair Hood Work Phone: [facility] 05-08-2014 pneumococcal polysaccharide vaccine, 23 valent Chair Hood Work Phone: [facility] 05-23-2013 influenza virus vacc ine, unspecified formulation Álvaro Barton [facility] 05-23-2013 influenza, seasonal, injectable Chair Hood Work Phone: [facility] 06-27-2005 influenza virus vacc ine, unspecified formulation External Provider [facility] Work Phone: 07-13-2002 influenza virus vacc ine, unspecified formulation External Provider [facility] 07-13-2002 pneumococcal polysaccharide vaccine, 23 valent External Provider [facility] Payers Date Payer Category Payer Medicare [id number] 2023 Private Health Insurance [id number] 2022 Medicare [id number] 2021 Medicare MMO MEDICARE MMO MEDADVANTAGE PPO [id number] 2021-Present [phone] [address] [place] [address] PPO [id number] 2021 Medicare MMO MEDICARE MMO MEDADVANTAGE PPO [id number] 2021-Present [phone] [address] [place] [address] PPO [id number] 2019 Medicare AETNA MEDICARE A ETNA MEDICARE PPO [id number] 2019-Present PPO [id number] 2017 Private Health Insurance [id number] Unknown [id number] 1938 Unknown [id number] 2.16.840.1.104658.3.579 .2.196 1938 Unknown [id number] 2.16.840.1.239461.3.579 .2.196 1938 Unknown [id number] 2.16.840.1.739198.3.579 .2.196 1938 Unknown [id number] 2.16.840.1.090058.3.579 .2.196 1938 Unknown [id number] 2.16.840.1.822817.3.579 .2.647 1938 Unknown [id number] 2.16.840.1.447457.3.579 .2.593 1938 Unknown [id number] 2.16.840.1.046552.3.579 .2.593 1938 Unknown [id number] 2.16.840.1.427757.3.579 .2.593 1938 Unknown [id number] 2.16.840.1.497359.3.579 .2.593 1938 Unknown [id number] 2.16.840.1.474521.3.579 .2.593 1938 Unknown [id number] 2.16.840.1.220990.3.579 .2.593 1938 Unknown [id number] 2.16.840.1.752805.3.579 .2.593 1938 Unknown [id number] 2.16.840.1.819407.3.579 .2.593 1938 Unknown [id number] 2.16.840.1.869450.3.579 .2.593 1938 Unknown [id number] 2.16.840.1.487245.3.579 .2.593 1938 Unknown [id number] 2.16.840.1.098719.3.579 .2.593 1938 Unknown [id number] 2.16.840.1.720151.3.579 .2.593 1938 Unknown [id number] 2.16.840.1.163300.3.579 .2.593 1938 Unknown [id number] 2.16.840.1.173939.3.579 .2.593 1938 Unknown [id number] 2.16.840.1.100421.3.579 .2.593 1938 Unknown [id number] 2.16.840.1.290371.3.579 .2.593 1938 Unknown [id number] 2.16.840.1.369546.3.579 .2.593 1938 Unknown [id number] 2.16.840.1.173639.3.579 .2.593 1938 Unknown [id number] 2.16.840.1.202101.3.579 .2.593 1938 Unknown [id number] 2.16.840.1.866521.3.579 .2.1259 1938 Unknown [id number] 2.16.840.1.891755.3.579 .2.727 1938 Unknown [id number] 2.16.840.1.163542.3.579 .2.727 1938 Unknown [id number] 2.16.840.1.841279.3.579 .2.727 1938 Unknown [id number] 2.16.840.1.586819.3.579 .2.727 -11-1939 Unknown [id number] 2.16.840.1.743457.3.579 .2 1938 Unknown [id number] 2.16.840.1.016661.3.579 .2 1938 Unknown [id number] 2.16.840.1.588463.3.579 .2 1938 Unknown [id number] 2.16.840.1.704224.3.579 .2 1938 Unknown [id number] 2.16.840.1.877239.3.579 .2 1938 Unknown [id number] 2.16.840.1.767641.3.579 .2 1938 Unknown [id number] 2.16.840.1.537050.3.579 .2 1938 Unknown [id number] 2.16.840.1.752227.3.579 .2 1938 Unknown [id number] 2.16.840.1.083727.3.579 .2 1938 Unknown [id number] 2.16.840.1.100470.3.579 .2 1938 Unknown [id number] 2.16.840.1.445500.3.579 .2 1938 Unknown [id number] 2.16.840.1.485145.3.579 .2 1938 Unknown [id number] 2.16.840.1.300205.3.579 .2 1938 Unknown [id number] 2.16.840.1.140149.3.579 .2 1938 Unknown [id number] 2.16.840.1.583997.3.579 .2 1938 Unknown [id number] 2.16.840.1.246638.3.579 .2.727 1938 Unknown [id number] 2.16.840.1.277590.3.579 .2.727 1938 Unknown [id number] 2.16.840.1.946849.3.579 .2.727 1938 Unknown [id number] 2.16.840.1.993757.3.579 .2.727 1938 Unknown [id number] 2.16.840.1.004021.3.579 .2.727 Social History Date Type Detail Facility Tobacco smoking stat [facility] Unknown if ever smoked [facility] Start: 1940 Sex Assigned At Not on file [facility] Exposure to SARS-CoV -2 (event) Unable to assess [facility] Start: 05-29-2020 End: 03-10-2023 Tobacco smoking status COIS Ex-smoker [facility] Comment on above: quit 1993 End: 07-28-1994 History of tobacco use Current smoker [facility] End: 07-28-1994 History of tobacco use Pipe Smoker [facility] Start: 05-29-2020 End: 03-11-2022 Tobacco use and exposure Smokeless tobacco non-user [facility] Start: 10-15-2021 End: 11-20-2022 Alcohol intake Ex-drinker (finding) [facility] Start: 10-05-2021 End: 07-01-2022 Exposure to SARS-CoV-2 (event) Not sure [facility] History of tobacco use Passive smoker [facility] Sex Assigned At Male [facility] Medical Equipment Procedure Code Equipment Code Equipment Origin al Text Equipment Identifier Dates Start: 04-07-2020 See Instructions , One touch ultra blue test strips Use as directed to test sugars once a day Start: 03-10-2023 Clinical Notes 10-15-2021 to 10-10-2023 Telephone Encounter - Samira Sheldon MA - 12/31/2022 10:02 AM EDTTelephone Encounter - Angle Kamara RN - 11/20/2022 4:43 PM EDTTelephone Encounter - Ada Perez - 11/20/2022 4:28 PM EDT Note Date & Type Note Facility 10-10-2023 Note stable [facility] 10-10-2023 Note Will continue to mon itor, no acute symptoms at this time Dr Gomez d/w about mitraclip procedure and he also declined this procedure [facility] 10-10-2023 Note In light of recent b leeding issues/epistaxis anticoagulation has been stopped, Dr Gomez d/w them regarding watchman implantation and he refused any invasive procedure at this time. [facility] 10-10-2023 Note Remains on oxygen, d enied any worsening SOB [facility] 10-10-2023 Note NYHC II-III currentl y appears euvolemic without exacerbation Continue GDMT- ASA, lipitor, farxiga, lisinopril, toprol, aldactone and Diuretic therapy- bumex 2 mg bid Monitor daily weights, I&O, fluid restriction 1.5-2L/day, renal function and electrolytes- please maintain K+>4 and Mg > 2 [facility] 10-10-2023 Note HTN well controlled 101/55 Continue toprol, lisinopril, aldactone [facility] 10-10-2023 Note [facility] CARDIOLOGY PROGR ESS NOTE HPI: Sandip Broussard is a 82 y.o. male here for 1 week f/U for noted hyperkalemia last week visit. HPI 82 yo male presents to clinic with family for 1 week f/U. Last week he was sent to ED for noted K+ 6.3. Repeat K+ have improved. Currently he states typical SOB with exertion and continues to wear O2 24/. Denied chest pain, Orthopnea, leg swelling or weight gain. PT and family states that he is not eating well r/t no appetite and typically does not drink much fluids- 1 glass of milk, 1-2 boost/day. Review of Systems Constitutional: Negative. Respiratory: Positive for shortness of breath. Cardiovascular: Negative. Neurological: Negative. All other systems reviewed and are negative. 09/29/23 Previous HPI Subjective Sandip Broussard is a 82 y.o. year old male patient being seen for 1 mo follow up CHF. Had labs drawn this afternoon. Dr. Gomez instructed patient to hold bumex over the weekend, which he did. He's back to original dose of potassium, which is 20mEq daily. states he also eats 1 banana a day. HPI Mr Broussard is seen in follow [...] the echocardiogram performed in June 2020 at [facility]. Previously he sustained GI bleeding and underwent investigation of the [facility] clinic. He recovered from that. He was [...] procedures. On 11/18/2021 he was admitted to [facility] with decompensated heart failure. 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 He underwent diuresis. Right heart catheterization on 11/21/2021 showed elevated filling pressures. Transesophageal echocardiogram showed moderately reduced systolic function with an ejection fraction of 30 to 35% and severe mitral regurgitation. Since last visit he has been doing about the same. He continues to be on oxygen therapy continuously. He is being treated for MDS by his group exercise instructor and was previously started on new medication for that. this was stopped. He is currently under treatment with a new group exercise instructor and his anemia is being managed by [...] June 2023 he was admitted to the [facility] with low hemoglobin and received 3 units of blood transfusion and hydration. He also had worsening renal function. On 08/26/2023 his hemoglobin was 6.7 and his platelet count was 88. He received 1 unit of blood transfusion. Since most recent visit with me on 08/29/2023 he has had fluctuation in his weight and he has gained and lost weight on and off. He continues to have shortness of breath with exertion. I had him increase Bumex to 2 mg twice a day and then he was back to baseline dosage of 1 mg twice a day. He continues to be on spironolactone, potassium supplementation. He is also eating a banana every day. His recent BUN was elevated. He says he feels better when his blood count is up. He has shortness of breath on exertion, NYHA class IIIb. He is on oxygen all the time. He is in good spirits. Patient Active Problem List Diagnosis Arteriolar nephrosclerosis Essential hypertension, benign Benign prostatic hyperplasia Bradycardia Abnormal stress test Chronic kidney disease, stage 3 (CMS/HCC) Ch (more content not included)... [facility] 10-10-2023 Note Patient here for 2 w [place] follow up per Dr. Gomez. He is down 11# since visit on 09/29/2023. He stopped his aspirin a week or so ago after ED visit for epistaxis again. He is taking 2mg of bumex twice daily right now. Review of Systems Constitutional: Positive for weight loss (11# since 09/29/2023). HENT: Positive for hearing loss and nosebleeds. Cardiovascular: Positive for dyspnea on exertion. Respiratory: Positive for cough and shortness of breath. Hematologic/Lymphatic: Bruises/bleeds easily. Musculoskeletal: Positive for arthritis, back pain and muscle weakness. Neurological: Positive for light-headedness and weakness. All other systems reviewed and are negative. [facility] 09-29-2023 Note [place] Cardiology - [facility] Subjective Sandip Broussard is a 82 [...] the echocardiogram performed in June 2020 at [facility]. Previously he sustained GI bleeding and underwent investigation of the [facility] clinic. He recovered from that. He was [...] procedures. On 11/18/2021 he was admitted to [facility] with decompensated heart failure. 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 He underwent diuresis. Right heart catheterization on 11/21/2021 showed elevated filling pressures. Transesophageal echocardiogram showed moderately reduced systolic function with an ejection fraction of 30 to 35% and severe mitral regurgitation. Since last visit he has been doing about the same. He continues to be on oxygen therapy continuously. He is being treated for MDS by his group exercise instructor and was previously started on new medication for that. this was stopped. He is currently under treatment with a new group exercise instructor and his anemia is being managed by [...] he was admi (more content not included)... 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 Discussed [...] Mayank Butts, URL [facility] [address] , [place] [address]- [phone] Additional Instructions: 6 mos (no labs) Patient Education Acute Urinary Retention, Male I, Radha Aldana, personally scribed for Dr. Do on 09/22/2023 14:31:20. . Documentation recorded by the scribeRadha, accurately reflects the services(s) I performed and decisions made by me. Authenticated by Dr. Do on 09/22/2023 14:33:08. 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 Medications aspi (more content not included)... [facility] Comment on above: Result Comment: Elec tronically Signed By: HI SEN, Mayank Butts\.br\Date and Time Signed: 09/22/23 14:33 EST\.br\Electronically Co-Signed By: Radha Aldana\.br\Date and Time Co-Signed: 09/22/23 14:32 EST 08-29-2023 Note [place] [facility] - [facility] Subjective Sandip Broussard is a 82 [...] the echocardiogram performed in June 2020 at [facility]. Previously he sustained GI bleeding and underwent investigation of the [facility] clinic. He recovered from that. He was [...] procedures. On 11/18/2021 he was admitted to [facility] with decompensated heart failure. 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 He underwent diuresis. Right heart catheterization on 11/21/2021 showed elevated filling pressures. Transesophageal echocardiogram showed moderately reduced systolic function with an ejection fraction of 30 to 35% and severe mitral regurgitation. Since last visit he has been doing about the same. He continues to be on oxygen therapy continuously. He is being treated for MDS by his group exercise instructor and was previously started on new medication for that. this was stopped. He is currently under treatment with a new group exercise instructor and his anemia is being managed by [...] June 2023 he was admitted to the [facility] (more content not included)... [facility] 07-17-2023 Note Patient here for [facility]. He was recently admitted with renal failure [...] All other systems reviewed and are negative. [facility] 07-17-2023 Note [place] Cardiology - [facility] Subjective Sandip Broussard is a 82 [...] the echocardiogram performed in June 2020 at [facility]. Previously he sustained GI bleeding and underwent investigation of the [facility] clinic. He recovered from that. He was [...] procedures. On 11/18/2021 he was admitted to [facility] with decompensated heart failure. 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 He underwent diuresis. Right heart catheterization on 11/21/2021 showed elevated filling pressures. Transesophageal echocardiogram showed moderately reduced systolic function with an ejection fraction of 30 to 35% and severe mitral regurgitation. Since last visit he has been doing about the same. He continues to be on oxygen therapy continuously. He is being treated for MDS by his group exercise instructor and was previously started on new medication for that. this was stopped. He is currently under treatment with a new group exercise instructor and his anemia is being managed by [...] states he feels (more content not included)... [facility] 07-16-2023 Note [id number] [facility] 03-14-2023 Note [place] Cardiology - [facility] Subjective Sandip Broussard is a 82 [...] the echocardiogram performed in June 2020 at [facility]. Previously he sustained GI bleeding and underwent investigation of the [facility] clinic. He recovered from that. He was [...] procedures. On 11/18/2021 he was admitted to [facility] with decompensated heart failure. 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 He underwent diuresis. Right heart catheterization on 11/21/2021 showed elevated filling pressures. Transesophageal echocardiogram showed moderately reduced systolic function with an ejection fraction of 30 to 35% and severe mitral regurgitation. Since last visit he has been doing about the same. He continues to be on oxygen therapy continuously. He is being treated for MDS by his group exercise instructor and was previously started on new medication for that. this was stopped. He is currently under treatment with a new group exercise instructor and his anemia is being managed by [...] BP Cuff Si (more content not included)... [facility] 02-26-2023 Hospital Discharge instructions Follow Up Care 02/26/2023 08:42:11 With:Jose Lu Address: [facility] [address] [place] [phone] Business (1) When: Unknown Comments:Labs todayFecal occult stool testingUrinalysis with micro todayWeekly CBC with differential and type and cross and transfuse if hemoglobin less than 8.0 at [facility].CMP and LDH every [address] Mercer for palliative management.Return in 6 weeks. [facility] 12-31-2022 Miscellaneous Notes Patient notified to make appt for refill documented in this encounter [facility] 11-20-2022 Note [facility] 11-20-2022 Miscellaneous Notes Concha @ [facility] notified and verbalizes understanding. Angle Kamara RN Images from the original note were not included. Per Dr. Hummel's check out note this afternoon: All appointments were cancelled. Images from the original note were not included. Bobbi Mehta [facility] You; Wilfred Martinez APRN.PROJECT DEVELOPMENT LEADER; Asher Hummel MD; Roman Clerical Pool; [facility] Pool 14 minutes ago (3:54 PM) LAN Asher, Do they realize the cost of Luspatercept? luspatercept-aamt 25 mg Solr [[id number]] Amount to Base Charge on: 125 mg Package: 1 Each Vial ([id number]) Charge Dropped: [phone] Bobbi: Concha Avendaño @ [facility] notified of cost and frequency of [...] hospice told them otherwise. Call placed to [facility]. Spoke w/ Concha, who confirms spouse's statement. Per Concha, they will cover all lab, transfusions, and treatment since Dr Hummel feels the pt has a less than 6 months prognosis w/ or w/o treatment. Pt's spouse notified of the above and verbalizes understanding. Will be in this afternoon as scheduled. Pharmacy/Clerical: FYI...... Angle Kamara RN documented in this encounter [facility] 11-20-2022 Instructions Asher Hummel MD - 11/20/2022 4:13 PM EDT Continue with Hospice Cancel treatment appointments Cancel appointments with [facility] RTC PRN Ok to get PRN transfusions based on symptoms. documented in this encounter [facility] 11-20-2022 History of Present illness Narrative [...] which included preparing to see the patient, [id number] patient care, completing clinical documentation, obtaining and/or reviewing separately obtained history, performing a medically appropriate examination, counseling and educating the patient/family/caregiver, communicating with other HCPs (not separately reported), independently interpreting results (not separately reported), communicating results to the patient/family/caregiver, and care coordination (not separately reported) Asher Hummel MD, CPE Hematology and Oncology Services Provided at: [place], [place] . documented in this encounter [facility] 11-20-2022 Nurse Note Patients would like to know if it is normal to get a blood transfusion in 4 hours? It used to be 8 hours now they are pushing it thru faster. Also could that result in fluid overload? Opal Campbell MA documented in this encounter [facility] 11-19-2022 Miscellaneous Notes Concha @ [facility] notified. Copy of this encounter along w/ office notes faxed to [phone]. Angle Kamara RN Yes - I agree Brynn: Pt was discharged from [facility] to home w/ [facility]. Hospice calls today regarding pt's transfusion needs. Notes that they can continue transfusing for symptom management if you believe that w/ or w/o treatment the pt would have a less than 6 month prognosis. Do you agree? Angle Kamara RN documented in this encounter [facility] 11-06-2022 Miscellaneous Notes Faxed orders to [facility] scheduling and also left a message. Ada Perez Preliminary CBC shows hgb of 6.5. Transfusion orders written per Dr Hummel. Pt's spouse notified and verbalizes understanding. Orders given to MARII Caballero, for scheduling. Angle Kamara RN documented in this encounter [facility] 11-06-2022 Miscellaneous Notes Patient came in for lab draw this afternoon per spouse they did not want to stay wait for results, requested to have nurse call them with results. Please call patient and spouse at [phone]. Thank you. Emily Horan Pss documented in this encounter [facility] 10-30-2022 Note [facility] 10-24-2022 Miscellaneous Notes Patient has been scheduled for transfusion tomorrow @ [facility] @ 8 am. He will need to go today for TSC. Call placed to patient/spouse no answer. Left detailed message with this information on voicemail. Ada Perez Pt's spouse calls requesting yesterday's CBC results. Hgb 7.4. Informed spouse that we would be ordering a blood transfusion to be done @ [facility]. Spouse verbalizes understanding. Transfusion orders signed per Dr Hummel and given to MARII Piedra, for scheduling. Angle Kamara RN documented in this encounter [facility] 10-23-2022 Note HNO ID: [id number] Author: Lexi Bowser RN Service: ? Author Type: Registered Nurse Type: Progress Notes Filed: 10/23/2022 3:32 PM Note Text: Went to lobby to inform pt of lab results and pt had already left. [facility] 10-23-2022 History of Present illness Narrative Went to lobby to inform pt of lab results and pt had already left. documented in this encounter [facility] 10-17-2022 Miscellaneous Notes [facility] Lab calls regarding transfusion order written on 10/16/22. Notes the H&H box must be marked. Per lab, the order they have has the box crossed out and NO marked next to it. Requesting we send a new order w/ the H&H box clearly marked. New order received from Dr Hummel and faxed to [facility] @ [phone]. Angle Kamara RN documented in this encounter [facility] 10-16-2022 Note [facility] 10-16-2022 History of Present illness Narrative Pt provided with CBC result from today per request. HgB 6.4. Transfusion orders rec'd from Dr Arias. Pt to PSS for scheduling of PRBC'S. Fide Puente RN documented in this encounter [facility] 10-15-2022 Nurse Note Clinical questionnaires incomplete due to Patient declined to complete or answer questions with nurse Additional intake questions: Has the patient had fever, nausea, vomiting, diarrhea, constipation, fatigue for > 1 week? Yes, fatigue and Provider Notified Does the patient have a decreased appetite? Yes Does patient want to see a Hvac Services Professional? No (yes to any of above refer patient to schedulers for dietitian appointment) ) Does patient have any new or increased numbness or tingling of extremities? No Is patient interested in fertility information? No Does patient need any prescription refills? No Does patient have an advanced directive in place? No, Patient referred to Resource [facility] documented in this encounter [facility] 10-15-2022 Note [facility] 10-15-2022 History of Present illness Narrative [place] [address] [place] CL[place]IC NOTE NAME: SANDIP BROUSSARD [facility] #: [id number] DATE: 10/15/2022 AGE: 81 PHYSICIAN: Elysia Esposito [...] clinic in 2 months. Elysia Esposito M.D. AA:[id number] / documented in this encounter [facility] 10-09-2022 Note [facility] 10-02-2022 Note [facility] 10-02-2022 Miscellaneous Notes 1 unit packed RBC's at [facility] 10-03-22 11am. Orders were faxed and they called the patient's documented in this encounter [facility] 09-25-2022 Miscellaneous Notes Pt's spouse calls requesting the results of his CBC from today. Hgb 6.9. Transfusion ordered per Dr Hummel. Spouse notified and will go to [facility] for type and screen. Transfusion orders given to Tello for scheduling. Angle Kamara RN documented in this encounter [facility] 09-18-2022 Note [facility] 09-18-2022 Instructions Asher Hummel MD - 09/18/2022 1:56 PM EST Continue luspatercept SQ today and q 3 weeks B12 shot today every 3 weeks Check CBC every Friday - stay for results Keep Hgb > 8 Check CMP every 3 weeks Recommended ensure/boost for increased calories. RTC in 3 weeks - see Wilfred documented in this encounter [facility] 09-18-2022 History of Present illness Narrative Images from the original note were not included. NAME: Sandip Broussard CLINIC NO.: [id number] DATE OF SERVICE: September 18, 2022 (Estephanie) [...] Epo usage. 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 [...] TET2 p.?, [id number], c.4182+1G>A VAF: 44.5% TET2 p.E8037C, [id number], c.5618T>C VAF: 40% ZRSR2 p.R30Vfs*8, NM_005089.3, [...] blood loss. Updated Visit, October 01, 2021: Lolyd is 80 years old and returns with [...] blood. Operated on nose- surgery w/ Dr. Hyde Last fall in [place]. Has tranexamic acid at home. Requesting ENT referral at [facility]. He is dehydrated and not keeping up with fluids. Risk Advisor is elevated exacerbating cause was likely letting [...] Eliquis daily at the recommendation of his powerbuilder. Since stopping the aspirin he has not [...] which included preparing to see the patient, rvrn-lm-mcxj patient care, completing clinical documentation, performing a medically appropriate examination, counseling and educating the patient/family/caregiver, ordering medications, tests, or procedures, communicating with other HCPs (not separately reported), independently interpreting results (not separately reported), and communicating results to the patient/family/caregiver. Asher Hummel MD, CPE Hematology and Oncology Services Provided at: [place], [place] CC: Dr. Flash Gomez (Cardiology [facility]) Dr. Oumou Esposito documented in this encounter [facility] 09-12-2022 Miscellaneous Notes Patient is called and [...] Angle Kamara RN documented in this encounter [facility] 09-04-2022 Miscellaneous Notes 2 units Packed RBC's at [facility] on Friday09-06-22 lab on . Orders and cbc were faxed to [facility].Patient has been notified documented in this encounter [facility] 08-28-2022 Note [facility] 08-28-2022 Instructions Asher Hummel MD - 08/28/2022 3:36 PM EST Start luspatercept SQ q 3 weeks Check CBC every Friday Keep gb > 8 Check CMP every 3 weeks Recommended ensure/boost for increased calories. RTC in 3 weeks documented in this encounter [facility] 08-28-2022 History of Present illness Narrative Images from the original note were not included. NAME: Sandip Broussard CLINIC NO.: [id number] DATE OF SERVICE: August 28, 2022 (Estephanie) [...] Epo usage. 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 [...] TET2 p.?, [id number], c.4182+1G>A VAF: 44.5% TET2 p.K8314I, [id number], c.5618T>C VAF: 40% ZRSR2 p.R30Vfs*8, NM_005089.3, [...] and dizziness. Updated Visit, June 03, 2022: lLoyd is in a wheelchair today and reports [...] stopping Eliquis. Updated Visit, September 17, 2021: Sadnip Broussard returns for scheduled follow-up. Since his [...] blood. Operated on nose- surgery w/ Dr. Hyde Last fall in [place]. Has tranexamic acid at home. Requesting ENT referral at [facility]. He is dehydrated and not keeping up with fluids. Risk Advisor is elevated exacerbating cause was likely letting [...] Eliquis daily at the recommendation of his powerbuilder. Since stopping the aspirin he has not [...] anemia. Initial Visit, May 29, 2020: Sandip Broussadr presents today Hematology and Oncology evaluation. He [...] which included preparing to see the patient, zvkb-dy-nrkn patient care, completing clinical documentation, performing a medically appropriate examination, counseling and educating the patient/family/caregiver, ordering medications, tests, or procedures, communicating with other HCPs (not separately reported), independently interpreting results (not separately reported), and communicating results to the patient/family/caregiver. Asher Hummel MD, CPE Hematology and Oncology Services Provided at: [place], [place] CC: Dr. Flash Gomez (Cardiology [facility]) Dr. Oumou Esposito documented in this encounter [facility] 08-27-2022 Note [facility] 08-27-2022 Note HNO ID: [id number] Author: Elysia Esposito MD Service: ? Author Type: Physician Type: Progress Notes Filed: 09/01/2022 3:01 PM Note Text: Please see transcribed note [facility] 08-27-2022 Miscellaneous Notes Patient is [...] Angle Kamara RN FYI: Call received from [facility]. Pt's appeal for Luspatercept has been approved from 07/30/22-11/11/22. Authorization #: [id number]. An approval letter will be mailed to our office as well. Angle Kamara RN documented in this encounter [facility] 08-22-2022 Miscellaneous Notes [facility] has transfusion orders for pt. Notes his orders are for leuko reduced and irradiated cells. Per nurse, the pt has never received irradiated cells in the past. Pt's chart reviewed. Prior orders are unmarked or for leuko reduced only. Discussed w/ Dr Edmondson who orders to cancel the order for irradiated. Rosetta @ [facility] notified and verbalizes understanding. Asks that we fax the corrected order to [phone]. Order faxed as requested. Angle Kamara RN documented in this encounter [facility] 08-21-2022 Miscellaneous Notes 2 units packed RBC's at [facility] on 08-22-22. Lab today. Order and cbc were faxed to central scheduling. documented in this encounter [facility] 08-21-2022 Note [facility] 08-21-2022 History of Present illness Narrative Images from the original note were not included. NAME: aSndip Broussard [facility] NO.: [id number] DATE OF SERVICE: August 21, 2022 (Michelle) [...] Epo usage. 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 [...] TET2 p.?, [id number], c.4182+1G>A VAF: 44.5% TET2 p.U9621J, [id number], c.5618T>C VAF: 40% ZRSR2 p.R30Vfs*8, NM_005089.3, c.88delC VAF: 91.1% And the following variant(s) of uncertain significance: BCORL1 p.R72W NM_021946.4: c.214C>T VAF: 100% PLAN: Continue weekly low dose decitabine. Await luspatercept approval. Transfusion needed tomorrow/Friday, hemoglobin of 7.7. Follow up in 1 [...] on 07/16/2022 Updated Visit, June 24, 2022: Sandpi Broussard returns for follow-up and treatment. He [...] blood. Operated on nose- surgery w/ Dr. Hyde Last fall in [place]. Has tranexamic acid at home. Requesting ENT referral at [facility]. He is dehydrated and not keeping up with fluids. Risk Advisor is elevated exacerbating cause was likely letting [...] Eliquis daily at the recommendation of his powerbuilder. Since stopping the aspirin he has not had any further nosebleeds. He denies fevers, chills, night sweats and signs/symptoms of infection. He has persistent exertional shortness of breath. Updated Visit, September 20, 2020: Llyod is 79 and returns with his Lissette [...] 09/17/2021 81 DIAGNOSIS: (D46.9) MDS (myelodysplastic syndrome) ([facility]) (primary encounter diagnosis) (N18.4, D63.1) Anemia of chronic renal failure, stage 4 (severe) ([facility]) (D50.0) 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 loss (N18.4) CRF (chronic renal failure), stage 4 (severe) ([facility]) (E83.111) 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 transfusions (N18.4) CKD (chronic kidney disease) stage 4, GFR 15-29 ml/min ([facility]) (I95.89, E86.1) Hypotension due to hypovolemia PAST MEDICAL HISTORY Diagnosis Date Anemia Anemia of chronic renal failure, stage 4 (severe) ([facility]) 08/23/2020 Atrial fibrillation ([facility]) Chronic kidney disease CRF (chronic renal failure), stage 4 (severe) ([facility]) 08/23/2020 Diabetes mellitus ([facility]) GI bleed Hypertension [...] APRN.CNP Hematology and Oncology Services Provided at: [place], [place] CC: Dr. Flash Gomez (Cardiology [facility]) Dr. Oumou Esposito I spent a total of 30 minutes on the date of the service which included preparing to see the patient, zupf-ud-ozsr patient care, completing clinical documentation, obtaining and/or reviewing separately obtained history, performing a medically appropriate examination, counseling and educating the patient/family/caregiver, ordering medications, tests, or procedures, independently interpreting results (not separately reported), and communicating results to the patient/family/caregiver. documented in this encounter [facility] 08-14-2022 Miscellaneous Notes Orders faxed to [facility] lab. [place] notified and confirms receipt. Angle Kamara RN Signed. Wilfred Martinez APRN.CNP [facility] is requesting an order for H&H. Order pended. Angle Kamara RN documented in this encounter [facility] 08-14-2022 Miscellaneous Notes Called and spoke [...] notify . TY. documented in this encounter [facility] 08-14-2022 Note [facility] 08-14-2022 Miscellaneous Notes 2 units packed RBC's at [facility]. Left detailed message and faxed the order with cbc. They will call the patient to schedule this appointment. documented in this encounter [facility] 08-14-2022 History of Present illness Narrative Images from the original note were not included. NAME: Sandip Broussard CLINIC NO.: [id number] DATE OF SERVICE: August 14, 2022 (Michelle) [...] Epo usage. 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 [...] TET2 p.?, [id number], c.4182+1G>A VAF: 44.5% TET2 p.H6550U, [id number], c.5618T>C VAF: 40% ZRSR2 p.R30Vfs*8, NM_005089.3, [...] blood. Operated on nose- surgery w/ Dr. Hyde Last fall in [place]. Has tranexamic acid at home. Requesting ENT referral at [facility]. He is dehydrated and not keeping up with fluids. Risk Advisor is elevated exacerbating cause was likely letting [...] Eliquis daily at the recommendation of his powerbuilder. Since stopping the aspirin he has not had any further nosebleeds. He denies fevers, chills, night sweats and signs/symptoms of infection. He has persistent exertional shortness of breath. Updated Visit, September 20, 2020: Lloyd is 79 and returns with his Lisstete for discussion on his overall condition as [...] 79 years old and returns with his Lisstete today having had a capsule endoscopy which [...] No family history on file. Wilfred Martinez APRN.PROJECT DEVELOPMENT LEADER Hematology and Oncology Services Provided at: [place], [place] CC: Dr. Flash Gomez (Cardiology [facility]) Dr. Oumou Esposito I spent a total of 30 minutes on the date of the service which included preparing to see the patient, ufva-pw-bvrb patient care, completing clinical documentation, obtaining and/or reviewing separately obtained history, performing a medically appropriate examination, counseling and educating the patient/family/caregiver, ordering medications, tests, or procedures, independently interpreting results (not separately reported), and communicating results to the patient/family/caregiver. documented in this encounter [facility] 08-13-2022 Miscellaneous Notes Addended by: ASHER HUMMEL on: 08/13/2022 06:04 PM Modules accepted: Orders Patient has an appt on 08/14/22. Would you like labs, if so place orders.Opal Campbell MA documented in this encounter [facility] 08-07-2022 Note [facility] 08-07-2022 Instructions Asher Hummel MD - 08/07/2022 3:54 PM EST Continue weekly low dose decitabine Await luspatercept approval Transfusion needed tomorrow/Friday, hgb 7.2 RTC in 1 week for labs and continue treatment. Decitabine Retacrit Recommended ensure/boost for increased calories documented in this encounter [facility] 08-07-2022 History of Present illness Narrative Images from the original note were not included. NAME: Sandip Broussard [facility] NO.: [id number] DATE OF SERVICE: August 07, 2022 (Estephanie) [...] Epo usage. 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 [...] TET2 p.?, [id number], c.4182+1G>A VAF: 44.5% TET2 p.E1608E, [id number], c.5618T>C VAF: 40% ZRSR2 p.R30Vfs*8, NM_005089.3, [...] blood. Operated on nose- surgery w/ Dr. Hyde Last fall in [place]. Has tranexamic acid at home. Requesting ENT referral at [facility]. He is dehydrated and not keeping up with fluids. Risk Advisor is elevated exacerbating cause was likely letting [...] Eliquis daily at the recommendation of his powerbuilder. Since stopping the aspirin he has not [...] which included preparing to see the patient, knrl-qz-wsak patient care, completing clinical documentation, obtaining and/or reviewing separately obtained history, performing a medically appropriate examination, counseling and educating the patient/family/caregiver, ordering medications, tests, or procedures, communicating with other HCPs (not separately reported), and independently interpreting results (not separately reported). Asher Hummel MD, CPE Hematology and Oncology Services Provided at: [place], [place] CC: Dr. Flash Gomez (Cardiology [facility]) Dr. Oumou Esposito documented in this encounter [facility] 07-30-2022 Note [facility] 07-30-2022 History of Present illness Narrative Images from the original note were not included. NAME: Sandip Broussard [facility] NO.: [id number] DATE OF SERVICE: July 30, 2022 (Lori [...] Epo usage. 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 [...] TET2 p.?, [id number], c.4182+1G>A VAF: 44.5% TET2 p.J8883U, [id number], c.5618T>C VAF: 40% ZRSR2 p.R30Vfs*8, NM_005089.3, [...] bad week. Nicki - bladder cancer Pipes shabbir Wasn't too happy with prognosis laid out [...] blood. Operated on nose- surgery w/ Dr. Hyde Last fall in [place]. Has tranexamic acid at home. Requesting ENT referral at [facility]. He is dehydrated and not keeping up with fluids. Risk Advisor is elevated exacerbating cause was likely letting [...] Eliquis daily at the recommendation of his powerbuilder. Since stopping the aspirin he has not [...] Sandoval PA-C CC: Dr. Flash Gomez (Cardiology [facility]) Dr. Oumou Esposito documented in this encounter [facility] 07-25-2022 Miscellaneous Notes Pt's notified that pt did not receive Retacrit injection on 07/23. [facility], pt is being changed to Luspatercept due to not responding to Retacrit. Pts notified and verbalizes understanding. Pt will receive Luspatercept once approved by insurance. Miriam Elizabeth RN documented in this encounter [facility] 07-24-2022 Miscellaneous Notes [facility] called a critical HCT 22.2. Pt is scheduled for PRBC transfusion. They are faxing labs to scan into his chart. BRYNN: Please advise of any new orders Thank you, Fide documented in this encounter [facility] 07-23-2022 Note [facility] 07-23-2022 Miscellaneous Notes Orders received for 1 unit and 2 units of PRBC's. Confirmed with Dr. Hummel who stated 2 units. Call placed to [facility] and had to leave a message to schedule patient for transfusion on . Ada Perez documented in this encounter [facility] 07-23-2022 Instructions Asher Hummel MD - 07/23/2022 2:54 PM EST Continue low dose decitabine weekly x (Friday's) Luspatercept when approved q 21 days. Retacrit today and weekly for Hgb < 12 RTC with 1 week on 07/30/2022 Labs same day. See Wilfred Transfuse this at [facility] x 1 unit documented in this encounter [facility] 07-23-2022 History of Present illness Narrative Images from the original note were not included. NAME: Sandip Broussard CLINIC NO.: [id number] DATE OF SERVICE: July 23, 2022 (Estephanie) [...] Epo usage. 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 [...] TET2 p.?, [id number], c.4182+1G>A VAF: 44.5% TET2 p.E9002X, [id number], c.5618T>C VAF: 40% ZRSR2 p.R30Vfs*8, NM_005089.3, c.88delC VAF: 91.1% And the following variant(s) of uncertain significance: BCORL1 p.R72W NM_021946.4: c.214C>T VAF: 100% PLAN: Continue low dose decitabine weekly x (Friday's) Luspatercept when approved q 21 days. Retacrit today and weekly for Hgb < 12 RTC with 1 week on 07/30/2022 Labs same day. See Wilfred Transfuse this at [facility] x 1 unit TREATMENT TO DATE: 4. [...] on 07/16/2022 Updated Visit, June 24, 2022: Sandpi Broussard returns for follow-up and treatment. He [...] blood. Operated on nose- surgery w/ Dr. Hyde Last fall in [place]. Has tranexamic acid at home. Requesting ENT referral at [facility]. He is dehydrated and not keeping up with fluids. Risk Advisor is elevated exacerbating cause was likely letting [...] Eliquis daily at the recommendation of his powerbuilder. Since stopping the aspirin he has not [...] which included preparing to see the patient, zska-xw-fiex patient care, completing clinical documentation, obtaining and/or reviewing separately obtained history, performing a medically appropriate examination, counseling and educating the patient/family/caregiver, ordering medications, tests, or procedures, communicating with other HCPs (not separately reported), independently interpreting results (not separately reported), and communicating results to the patient/family/caregiver. Asher Hummel MD, CPE Hematology and Oncology Services Provided at: [place], [place] CC: Dr. Flash Gomez (Cardiology [facility]) Dr. Oumou Esposito documented in this encounter [facility] 07-18-2022 Miscellaneous Notes Pt's spouse notified and verbalizes understanding. Angle Kamara, MONET That is fine to do if he needs to. Pulse ox sat of 94-95% on 2L if fine. Thanks, Wilfred Martinez APRN.PROJECT DEVELOPMENT LEADER Pt's spouse reports that the infusion nurse increased the pt's oxygen to 3 LPM during today's transfusion after pt c/o feeling short of breath. Notes the pt's pulse ox is 94-95% on 2 LPM. Any objections to him increasing his flow rate to 3 LPM when needed? Angle Kamara RN documented in this encounter [facility] 07-16-2022 Note [facility] 07-16-2022 Nurse Note Additional intake questions: Has the patient had fever, nausea, vomiting, diarrhea, constipation, fatigue for > 1 week? Yes, diarrhea ( 1 times in last 24 hours), fatigue, SOB, and Provider Notified Does the patient have a decreased appetite? No Does patient want to see a Hvac Services Professional? No (yes to any of above refer [...] Matt Christianson LPN documented in this encounter [facility] 07-16-2022 History of Present illness Narrative [place] [address] [place] CLINIC NOTE NAME: SANDIP BROUSSARD CLINIC #: [id number] DATE: 07/16/2022 AGE: 81 PHYSICIAN: Elysia Esposito [...] data presented at the national annual meeting [employer] 2021 has demonstrated a [...] locally in the interim Elysia Esposito M.D. AA:[id number] /[id number] documented in this encounter [facility] 07-15-2022 Miscellaneous Notes 1 unit packed RBC's at [facility] on 07-18-22 10am. Lab on Friday07-16-22 11am. Orders and cbc were faxed to [facility]. documented in this encounter [facility] 07-15-2022 Note [facility] 07-15-2022 Instructions Asher Hummel MD - 07/15/2022 2:56 PM EST Continue low dose decitabine weekly x 2 days (Friday and Friday normally) This week plan second dose on with labs Retacrit today and weekly for Hgb < 12 RTC with 1 week on 07/23/2022 Labs same day. Transfuse on at [facility] documented in this encounter [facility] 07-15-2022 History of Present illness Narrative Images from the original note were not included. NAME: Sandip Broussard CLINIC NO.: [id number] DATE OF SERVICE: July 15, 2022 (Estephanie) [...] Epo usage. 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 [...] TET2 p.?, [id number], c.4182+1G>A VAF: 44.5% TET2 p.D8149L, [id number], c.5618T>C VAF: 40% ZRSR2 p.R30Vfs*8, NM_005089.3, [...] 07/23/2022 Labs same day. Transfuse on at [facility] x 1 unit TREATMENT TO DATE: 4. [...] 07/16/2022 Updated Visit, June 24, 2022: Sandip Bruossard returns for follow-up and treatment. He remains [...] blood. Operated on nose- surgery w/ Dr. Hyde Last fall in [place]. Has tranexamic acid at home. Requesting ENT referral at [facility]. He is dehydrated and not keeping up with fluids. Risk Advisor is elevated exacerbating cause was likely letting [...] Eliquis daily at the recommendation of his powerbuilder. Since stopping the aspirin he has not [...] which included preparing to see the patient, pkxy-pz-wzuf patient care, completing clinical documentation, obtaining and/or reviewing separately obtained history, performing a medically appropriate examination, counseling and educating the patient/family/caregiver, ordering medications, tests, or procedures, communicating with other HCPs (not separately reported), independently interpreting results (not separately reported), and communicating results to the patient/family/caregiver. Asher Hummel MD, CPE Hematology and Oncology Services Provided at: [place], [place] CC: Dr. Flash Gomez (Cardiology [facility]) Dr. Oumou Esposito documented in this encounter [facility] 07-11-2022 Miscellaneous Notes Yes. 2 units ordered per Radha on 07/08/22. Angle Kamara RN ----- Message from Asher Hummel MD sent at 07/09/2022 8:04 PM EST ----- Did we transfuse? documented in this encounter [facility] 07-08-2022 Note [facility] 07-08-2022 Miscellaneous Notes Haydee carrillo stating she will call patient's to get him set up. Ada Perez Left message w/ Michael scheduling to get patient set up for transfusion. Ada Perez documented in this encounter [facility] 07-08-2022 History of Present illness Narrative Images from the original note were not included. NAME: Sandip Broussard NO.: [id number] DATE OF SERVICE: July 08, 2022 (Estephanie) [...] Epo usage. 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 [...] TET2 p.?, [id number], c.4182+1G>A VAF: 44.5% TET2 p.Z7299D, [id number], c.5618T>C VAF: 40% ZRSR2 p.R30Vfs*8, NM_005089.3, [...] blood. Operated on nose- surgery w/ Dr. Hyde Last fall in [place]. Has tranexamic acid at home. Requesting ENT referral at [facility]. He is dehydrated and not keeping up with fluids. Risk Advisor is elevated exacerbating cause was likely letting [...] Eliquis daily at the recommendation of his powerbuilder. Since stopping the aspirin he has not [...] Sandoval PA-C CC: Dr. Flash Gomez (Cardiology [facility]) Dr. Oumou Esposito documented in this encounter [facility] 07-01-2022 Note [facility] 07-01-2022 Miscellaneous Notes Addended by: ASHER HUMMEL on: 07/01/2022 03:13 PM Modules accepted: Orders documented in this encounter [facility] 07-01-2022 Instructions Asher Hummel MD - 07/01/2022 2:38 PM EST Continue low dose decitabine weekly x 2 days (Friday and Friday) Retacrit today and weekly for Hgb < 12 RTC with Wilfred / Radha in 1 week Labs same day. documented in this encounter [facility] 07-01-2022 History of Present illness Narrative Images from the original note were not included. NAME: Sandip Broussard [facility] NO.: [id number] DATE OF SERVICE: July 01, 2022 (Estephanie) [...] Epo usage. 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 [...] TET2 p.?, [id number], c.4182+1G>A VAF: 44.5% TET2 p.T3376N, [id number], c.5618T>C VAF: 40% ZRSR2 p.R30Vfs*8, NM_005089.3, [...] blood. Operated on nose- surgery w/ Dr. Hyde Last fall in [place]. Has tranexamic acid at home. Requesting ENT referral at [facility]. He is dehydrated and not keeping up with fluids. Risk Advisor is elevated exacerbating cause was likely letting [...] Eliquis daily at the recommendation of his powerbuilder. Since stopping the aspirin he has not [...] which included preparing to see the patient, cggt-zh-mmca patient care, completing clinical documentation, performing a medically appropriate examination, counseling and educating the patient/family/caregiver, ordering medications, tests, or procedures, and independently interpreting results (not separately reported). Asher Hummel MD, CPE Hematology and Oncology Services Provided at: [place], [place] CC: Dr. Flash Gomez (Cardiology [facility]) Dr. Oumou Esposito documented in this encounter [facility] 06-24-2022 Note HNO ID: [id number] Author: Lexi Velasquez RN Service: ? Author Type: Registered Nurse Type: Progress Notes Filed: 06/24/2022 3:04 PM Note Text: Patient to get a transfusion per HMartinez. Lexi Velasquez RN [facility] 06-24-2022 Note [facility] 06-24-2022 History of Present illness Narrative Patient to get a transfusion per HMartinez. Lexi Velasquez RN documented in this encounter [facility] 06-24-2022 History of Present illness Narrative Images from the original note were not included. NAME: Sandip Broussard [facility] NO.: [id number] DATE OF SERVICE: June 24, 2022 (Michelle) Some elements in this clinic note that are critical to medical decision making have been carefully reviewed and included from a prior clinic note dated: June 10, 2022. (Dr. Hummel) Referring Provider: Dr. Flash Pearl Additional Clinicians involved in Sandip Broussard's care: Dr. José Luis Velasquez, Dr. Ouomu Wade CC: MDS ASSESSMENT: 81 year old [...] Epo usage. 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 [...] TET2 p.?, [id number], c.4182+1G>A VAF: 44.5% TET2 p.B9596V, [id number], c.5618T>C VAF: 40% ZRSR2 p.R30Vfs*8, NM_005089.3, c.88delC VAF: 91.1% And the following variant(s) of uncertain significance: BCORL1 p.R72W NM_021946.4: c.214C>T VAF: 100% PLAN: Continue low dose decitabine weekly x 2 days (Friday and Friday) Retacrit today and weekly for Hgb < 12 Transfuse 2 unit PRBCs for Hgb < 8.5 (This week on Friday @ [facility] please) Follow up in 1 week with [...] blood. Operated on nose- surgery w/ Dr. Hyde Last fall in [place]. Has tranexamic acid at home. Requesting ENT referral at [facility]. He is dehydrated and not keeping up with fluids. Risk Advisor is elevated exacerbating cause was likely letting [...] Eliquis daily at the recommendation of his powerbuilder. Since stopping the aspirin he has not [...] APRN.CNP Hematology and Oncology Services Provided at: [place], [place] CC: Dr. Flash Gomez (Cardiology [facility]) Dr. Oumou Esposito I spent a total of 30 minutes on the date of the service which included preparing to see the patient, entc-mo-puea patient care, completing clinical documentation, obtaining and/or reviewing separately obtained history, performing a medically appropriate examination, counseling and educating the patient/family/caregiver, ordering medications, tests, or procedures, independently interpreting results (not separately reported), and communicating results to the patient/family/caregiver. documented in this encounter [facility] 06-17-2022 Note [facility] 06-17-2022 Miscellaneous Notes 1 unit packed RBC's at [facility] on Fri06-19-22 9am. Patient to do his lab on Friday06-17-22. documented in this encounter [facility] 06-17-2022 Instructions Asher Hummel MD - 06/17/2022 10:40 AM EST Continue low dose decitabine weekly x 2 days (Fri, Fri) Retacrit today and weekly for Hgb < 12 Transfuse 2 unit PRBCs for Hgb < 8.5 (this week on Friday @ [facility] please) Labs again once / week here RTC in 1 weeks - with labs - see Michelle documented in this encounter [facility] 06-17-2022 History of Present illness Narrative Images from the original note were not included. NAME: Sandip Broussard CLINIC NO.: [id number] DATE OF SERVICE: June 17, 2022 (Estephanie) [...] Epo usage. 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 [...] TET2 p.?, [id number], c.4182+1G>A VAF: 44.5% TET2 p.B4771Q, [id number], c.5618T>C VAF: 40% ZRSR2 p.R30Vfs*8, NM_005089.3, c.88delC VAF: 91.1% And the following variant(s) of uncertain significance: BCORL1 p.R72W NM_021946.4: c.214C>T VAF: 100% PLAN: Continue low dose decitabine weekly x 2 days (Fri, Fri) Retacrit today and weekly for Hgb < 12 Transfuse 2 unit PRBCs for Hgb < 8.5 (this week on Friday @ [facility] please) Labs again once / week here [...] blood. Operated on nose- surgery w/ Dr. Hyde Last fall in [place]. Has tranexamic acid at home. Requesting ENT referral at [facility]. He is dehydrated and not keeping up with fluids. Risk Advisor is elevated exacerbating cause was likely letting [...] Eliquis daily at the recommendation of his powerbuilder. Since stopping the aspirin he has not [...] which included preparing to see the patient, oeof-dy-vgzg patient care, completing clinical documentation, performing a medically appropriate examination, counseling and educating the patient/family/caregiver, ordering medications, tests, or procedures, and independently interpreting results (not separately reported). Asher Hummel MD, CPE Hematology and Oncology Services Provided at: [place], [place] CC: Dr. Flash Gomez (Cardiology [facility]) MD Elysia Merlos MD documented in this encounter [facility] 06-10-2022 Note [facility] 06-10-2022 History of Present illness Narrative NAME: Sandip Broussard CLINIC NO.: [id number] DATE OF SERVICE: June 10, 2022 (Radha [...] Epo usage. 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 [...] TET2 p.?, [id number], c.4182+1G>A VAF: 44.5% TET2 p.Z3973E, [id number], c.5618T>C VAF: 40% ZRSR2 p.R30Vfs*8, NM_005089.3, [...] infection per dr pearl since 05/29/2022, Rafael matias. He stopped it early, but his ear [...] blood. Operated on nose- surgery w/ Dr. Hyde Last fall in [place]. Has tranexamic acid at home. Requesting ENT referral at [facility]. He is dehydrated and not keeping up with fluids. Risk Advisor is elevated exacerbating cause was likely letting [...] Eliquis daily at the recommendation of his powerbuilder. Since stopping the aspirin he has not [...] Sandoval PA-C CC: Dr. Flash Gomez (Cardiology [facility]) MD Elysia Merlos MD documented in this encounter [facility] 06-10-2022 Nurse Note Clinical questionnaires incomplete due to Nurse was Interrupted by provider during rooming process QNR not working. Showing an error. Ksenia Mohan documented in this encounter [facility] 06-07-2022 Miscellaneous Notes Per pt's chart, he is scheduled to receive 2 units RBC's at [facility] today. Angle Kamara RN Wade from [facility] lab called with critical results on patient. HBG 7.7 HCT 23.0(critical result) Jozef Mohan RN documented in this encounter [facility] 06-03-2022 Note [facility] 06-03-2022 Miscellaneous Notes 2 units packed RBC's at [facility] on Fri06-05-22 9am. Lab on Friday before noon. Order and cbc were faxed to [facility] documented in this encounter [facility] 06-03-2022 Instructions Asher Hummel MD - 06/03/2022 1:55 PM EST Continue low dose decitabine weekly x 2 days (Fri, Fri) Retacrit today and weekly for Hgb < 12 Transfuse 2 unit PRBCs for Hgb < 8.5 (this week on Friday @ [facility] please) Labs again once / week here Recheck H/H this Friday at [facility] and transfuse again if Hgb < 8.5 RTC in 1 weeks - with labs - see Wiflred documented in this encounter [facility] 06-03-2022 History of Present illness Narrative Images from the original note were not included. NAME: Sandip Broussard CLINIC NO.: [id number] DATE OF SERVICE: June 03, 2022 (Estephanie) Some elements in this clinic [...] Epo usage. 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 [...] < 8.5 (this week on Friday @ [facility] please) Labs again once / week here Recheck H/H this Friday at [facility] and transfuse again if Hgb < 8.5 [...] blood. Operated on nose- surgery w/ Dr. Hyde Last fall in [place]. Has tranexamic acid at home. Requesting ENT referral at [facility]. He is dehydrated and not keeping up with fluids. Risk Advisor is elevated exacerbating cause was likely letting [...] Eliquis daily at the recommendation of his powerbuilder. Since stopping the aspirin he has not [...] which included preparing to see the patient, eztk-bv-useo patient care, completing clinical documentation, obtaining and/or reviewing separately obtained history, performing a medically appropriate examination, counseling and educating the patient/family/caregiver, ordering medications, tests, or procedures, communicating with other HCPs (not separately reported), and independently interpreting results (not separately reported). Asher Hummel MD, CPE Hematology and Oncology Services Provided at: [facility]: Dr. Flash Gomez (Cardiology [facility]) MD Elysia Merlos MD documented in this encounter [facility] 05-23-2022 Miscellaneous Notes CYCLE 1/DAY 1 [...] Angle Kamara RN documented in this encounter [facility] 05-21-2022 Note [facility] 05-20-2022 Note [facility] 05-20-2022 Miscellaneous Notes The following [...] hours as needed. Authorizing Provider: WILFRED MARTINEZ APRN.PROJECT DEVELOPMENT LEADER Scripts pended for antiemetics. Please review and approve. Thanks! Angle Kamara, RN documented in this encounter [facility] 05-20-2022 Miscellaneous Notes 1 unit packed RBC's at [facility] on Friday05-24-22 at 9am. Lab on anytime before noon. Patient and are aware of this appt. documented in this encounter [facility] 05-20-2022 Instructions Asher Hummel MD - 05/20/2022 2:40 PM EDT Start low dose decitabine weekly x 2 days (M, T) Retacrit today and weekly for Hgb < 12 Labs once / week RTC in 2 weeks Transfuse 1 unit PRBCs for Hgb < 8.5 (this week on @ [facility] please) documented in this encounter [facility] 05-20-2022 History of Present illness Narrative Images from the original note were not included. NAME: Sandip Broussard CLINIC NO.: [id number] DATE OF SERVICE: May 20, 2022 (Estephanie) Some elements in this clinic note that are critical to medical decision making have been carefully reviewed and included from a prior clinic note dated: May 06, 2022 (Estephanie) Referring Provider: Dr. Flash Pearl Additional Clinicians involved in Sandip Broussard's care: Dr. JoséL uis Velasquez, Dr. Oumou Wade CC: Follow up [...] Epo usage. 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 [...] Hgb < 8.5 (this week on @ [facility] please) TREATMENT TO DATE: . 05/20/2022 - Low [...] blood. Operated on nose- surgery w/ Dr. Hyde Last fall in [place]. Has tranexamic acid at home. Requesting ENT referral at [facility]. He is dehydrated and not keeping up with fluids. Risk Advisor is elevated exacerbating cause was likely letting [...] Eliquis daily at the recommendation of his powerbuilder. Since stopping the aspirin he has not [...] which included preparing to see the patient, bllw-vm-cpll patient care, completing clinical documentation, obtaining and/or reviewing separately obtained history, performing a medically appropriate examination, counseling and educating the patient/family/caregiver, ordering medications, tests, or procedures, communicating with other HCPs (not separately reported), and independently interpreting results (not separately reported). Asher Hummel MD, CPE Hematology and Oncology Services Provided at: [place], [place] CC: Dr. Flash Gomez (Cardiology [facility]) MD Elysia Merlos MD documented in this encounter [facility] 05-20-2022 Nurse Note Patient is interested in getting Flu shot. Opal Campbell MA documented in this encounter [facility] 05-14-2022 Miscellaneous Notes Appointment scheduled & confirmed with pt's spouse. Per secure chat from Dr Hummel: hello - I'd like Don to start Dacogen on Friday will need education as well as consent. Thank you. Clerical: Please schedule. Pharmacy: [facility]... Angle Kamara, RN documented in this encounter [facility] 05-06-2022 Note [facility] 05-06-2022 Miscellaneous Notes Patient will get TSC tomorrow at [place] between 6:30 and 5 pm (outpatient lab hours) Tranfusion is scheduled for Friday, 05/08 @ 12:00 pm. Ada Perez documented in this encounter [facility] 05-06-2022 Instructions Asher Hummel MD - 05/06/2022 4:30 PM EDT Retacrit today and weekly for Hgb < 12 Labs once / week RTC in 2 weeks Transfuse 1 unit PRBCs for Hgb < 8.5 documented in this encounter [facility] 05-06-2022 History of Present illness Narrative Images from the original note were not included. NAME: Sandip Broussard [facility] NO.: [id number] DATE OF SERVICE: May 06, 2022 ([facility]) Some elements in this clinic note [...] Epo usage. 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 [...] blood. Operated on nose- surgery w/ Dr. Hyde Last fall in [place]. Has tranexamic acid at home. Requesting ENT referral at [facility]. He is dehydrated and not keeping up with fluids. Risk Advisor is elevated exacerbating cause was likely letting [...] Eliquis daily at the recommendation of his powerbuilder. Since stopping the aspirin he has not [...] which included preparing to see the patient, fezz-wt-ebtz patient care, completing clinical documentation, obtaining and/or reviewing separately obtained history, performing a medically appropriate examination, counseling and educating the patient/family/caregiver, ordering medications, tests, or procedures, communicating with other HCPs (not separately reported), and independently interpreting results (not separately reported). Asher Hummel MD, CPE Hematology and Oncology Services Provided at: [place], [place] CC: Dr. Flash Gomez (Cardiology [facility]) MD Elysia Merlos MD documented in this encounter [facility] 04-29-2022 Miscellaneous Notes Lucero Santiago calling from [facility]. States that they received pt's specimen. Needs to clarify if this is bone marrow or peripheral blood. Per Nicki Aguila in lab, bone marrow aspirate was submitted to [facility]. Lucero notified of the above and verbalizes understanding. No additional questions noted. Angle Kamara RN documented in this encounter [facility] 04-29-2022 Note [facility] 04-29-2022 Note [facility] 04-29-2022 History of Present illness Narrative Pt is unable to receive retacrit today d/t it not being authorized by insurance since it has only been 7 days. Per pharmacy. Pharmacy requesting to get retacrit authorized weekly. Pt made aware. Will keep next appointment. documented in this encounter [facility] 04-29-2022 Instructions Asher Hummel MD - 04/29/2022 1:07 PM EDT Retacrit today and weekly for Hgb < 12 RTC in 1 week, labs and review BMBx results. documented in this encounter [facility] 04-29-2022 History of Present illness Narrative Images from the original note were not included. NAME: Sandip Broussard CLINIC NO.: [id number] DATE OF SERVICE: April 29, 2022 (Estephanie) [...] Epo usage. 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 [...] and review BMBx results. TREATMENT TO DATE: 07/09/2021 - 04/08/2022: Vidaza D1-5 q 28. [...] blood. Operated on nose- surgery w/ Dr. Hyde Last fall in [place]. Has tranexamic acid at home. Requesting ENT referral at [facility]. He is dehydrated and not keeping up with fluids. Risk Advisor is elevated exacerbating cause was likely letting [...] Eliquis daily at the recommendation of his powerbuilder. Since stopping the aspirin he has not [...] which included preparing to see the patient, mche-xr-ocdp patient care, obtaining and/or reviewing separately obtained history, ordering medications, tests, or procedures, and independently interpreting results (not separately reported). Asher Hummel MD, CPE Hematology and Oncology Services Provided at: [place], [place] CC: Dr. Flash Gomez (Cardiology [facility]) MD Elysia Merlos MD documented in this encounter [facility] 04-25-2022 Note [facility] 04-25-2022 Note [facility] 04-25-2022 History of Present illness [...] Hummel MD Personnel present: Asher Hummel MD, clinical laboratory service teacher. Bone marrow aspiration: Unilateral was obtained. Bone [...] In Department: Hematology/Oncology documented in this encounter [facility] 04-23-2022 Miscellaneous Notes signed Brynn/Wilfred: Order for Foundation One Heme pended (MISC test). Angle Kamara RN Patient coming in on for bone marrow biopsy. Dr. Esposito recommended hemotologic NGS testing. Can you please pend that for Dr. Hummel to sign and make sure he gets it drawn when here for bmbx? Thanks. Radha Sandoval PA-C documented in this encounter [facility] 04-22-2022 Note [facility] 04-18-2022 Note [facility] 04-18-2022 Nurse Note Additional intake questions: Has the patient had fever, nausea, vomiting, diarrhea, constipation, fatigue for > 1 week? Yes, fatigue and Provider Notified Does the patient have a decreased appetite? No Does patient want to see a Hvac Services Professional? No (yes to any of above refer patient to schedulers for dietitian appointment) ) Does patient have any new or increased numbness or tingling of extremities? No Is patient interested in fertility information? No Does patient need any prescription refills? No Does patient have an advanced directive in place? Yes, no copy found in [facility] Patient referred to [facility] Electronically Signed By: Matt Christianson LPN documented in this encounter [facility] 04-18-2022 History of Present illness Narrative [place] [address] [place] CLINIC NOTE NAME: SANDIP BROUSSARD CLINIC #: [id number] DATE: 04/18/2022 AGE: 81 PHYSICIAN: Elysia Esposito [...] 1 son who works as a senior cyber specialist at [facility] [employer]. He had a big family of 10. 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 Elysia Esposito M.D. AA:[id number] /[id number] documented in this encounter [facility] 04-15-2022 Miscellaneous Notes Discussed w/ Wilfred. [...] [facility] on . It would be too long of a day too far from home. They want to receive a blood transfusion at [facility]. They are concerned that patient may drop further prior to and want a transfusion if needed before appointment. Please advise and set up transfusion at [place] and call pt if needed. Thank you. documented in this encounter [facility] 04-15-2022 Nurse Note Labs reviewed with patient and questions answers/discussion about possible transfusion. See telephone encounter. documented in this encounter [facility] 04-08-2022 Note [facility] 04-08-2022 Instructions Asher Hummel MD - 04/08/2022 3:14 PM EDT Labs on Friday Transfuse if Hgb is 7.0 or patient is symptomatic Aranesp and B12 today Keep appointment with Dr. Esposito 04/18/2022 RTC in 2 weeks with labs same day. documented in this encounter [facility] 04-08-2022 History of Present illness Narrative Images from the original note were not included. NAME: Sandip Broussard [facility] NO.: [id number] DATE OF SERVICE: April 08, 2022 Some [...] Epo usage. 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 [...] blood. Operated on nose- surgery w/ Dr. Hyde Last fall in [place]. Has tranexamic acid at home. Requesting ENT referral at [facility]. He is dehydrated and not keeping up with fluids. Risk Advisor is elevated exacerbating cause was likely letting [...] Eliquis daily at the recommendation of his powerbuilder. Since stopping the aspirin he has not [...] which included preparing to see the patient, vvev-es-gurf patient care, completing clinical documentation, performing a medically appropriate examination, counseling and educating the patient/family/caregiver, ordering medications, tests, or procedures, and communicating with other HCPs (not separately reported). Asher Hummel MD, CPE Hematology and Oncology Services Provided at: [place], [place] CC: Dr. Flash Gomez (Cardiology [facility]) MD Elysia Merlos MD documented in this encounter [facility] 04-03-2022 Miscellaneous Notes Discussed with Dr Arias. No additional orders. Fide Puente RN Critical lab called Hgb 6.9/Hct 21.8. Pt has 2 units PRBC's ordered and I called and spoke to Rosetta at the [facility] infusion center and he is schedule for infusion of units at 0800 04/04/22. Note Hgb 7.0 HM/BRYNN: any further instructions? Fide Puente RN documented in this encounter [facility] 04-02-2022 Miscellaneous Notes 2 units packed RBC S at [facility] on 04-04-. 9am. Patient is going for lab draw on 04-03. Around noon documented in this encounter [facility] 04-02-2022 Miscellaneous Notes Transfusion orders signed per Wilfred and forwarded to MARII Puga, for scheduling. Angle Kamara RN Today's hgb 7. Pt's spouse notified and verbalizes understanding. Notes the pt c/o increased fatigue and weakness. Do you want to transfuse? Angle Kamara RN Pt requesting lab results be called to his spouse, Lissette [phone] when available. Thanks! documented in this encounter [facility] 03-21-2022 Miscellaneous Notes Don is scheduled 04/04 for appointment with [facility] Cancer answer line messaged me back and [...] your office call the cancer answer line-- [phone]-- since I am not sure how these [...] would be appreciated. documented in this encounter [facility] 03-19-2022 Miscellaneous Notes Pt's calls for yesterday's hgb results. Results reviewed w/ pt's spouse. Spouse verbalizes understanding. Denies any further questions at this time. Angle Kamara RN documented in this encounter [facility] 03-18-2022 Miscellaneous Notes Message left for pt to call our office back regarding lab results. Paris Jerry RN Patient is here for lab draw. Patient and spouse have asked us to send message to have someone call them today with the results. Thank you! Emily Horan Pss documented in this encounter [facility] 03-18-2022 Miscellaneous Notes Emailed cancer answer [...] would be appreciated. documented in this encounter [facility] 03-11-2022 Note [facility] 03-11-2022 Miscellaneous Notes 2 units packed RBC's at [facility] on Friday03-12-22 8am. Lab today. Orders were faxed documented in this encounter [facility] 03-11-2022 Instructions Asher Hummel MD - 03/11/2022 2:54 PM EDT 1. Proceed with C9 Vidaza D1-5 2. Transfuse in [facility] this week 1 unit 3. Continue Retacrit q 2 weeks - labs every weeks 4. RTC in 4 weeks for C10 Vidaza 5. Discuss with Dr. Esposito. documented in this encounter [facility] 03-11-2022 History of Present illness Narrative Images from the original note were not included. NAME: Sandip Broussard CLINIC NO.: [id number] DATE OF SERVICE: March 11, 2022 Some [...] Epo usage. 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 [...] blood. Operated on nose- surgery w/ Dr. Hyde Last fall in [place]. Has tranexamic acid at home. Requesting ENT referral at [facility]. He is dehydrated and not keeping up with fluids. Risk Advisor is elevated exacerbating cause was likely letting [...] Eliquis daily at the recommendation of his powerbuilder. Since stopping the aspirin he has not [...] which included preparing to see the patient, osjv-ej-orbu patient care, completing clinical documentation, performing a medically appropriate examination, counseling and educating the patient/family/caregiver, ordering medications, tests, or procedures, and communicating with other HCPs (not separately reported). Asher Hummel MD, CPE Hematology and Oncology Services Provided at: [place], [place] CC: Dr. Flash Gomez (Cardiology [facility]) Dr. Oumou Cho MD documented in this encounter [facility] 02-28-2022 Miscellaneous Notes Patient has been scheduled for transfusion at [place] on 03/01 @ 8:00 am. Faxed orders to [place] Scheduling. He will get TSC today. Ada Perez documented in this encounter [facility] 02-25-2022 Note [facility] 02-25-2022 History of Present illness Narrative Dr. Hummel aware of pt hgb 7.1 and his reports of feeling fatigue, lighteaded. Retacrit given; Pt to come back in to office on for CBC. Patient agrees with plan and scheduled appointment. documented in this encounter [facility] 02-11-2022 Note [facility] 02-11-2022 History of Present illness Narrative Images from the original note were not included. NAME: Sandip Broussard CLINIC NO.: [id number] DATE OF SERVICE: February 11 2022 (Elements [...] Epo usage. 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 [...] blood. Operated on nose- surgery w/ Dr. Hyde Last fall in [place]. Has tranexamic acid at home. Requesting ENT referral at [facility]. He is dehydrated and not keeping up with fluids. Risk Advisor is elevated exacerbating cause was likely letting [...] Eliquis daily at the recommendation of his powerbuilder. Since stopping the aspirin he has not [...] Sandoval PA-C CC: Dr. Flash Gomez (Cardiology [facility]) Dr. Oumou Cho MD documented in this encounter [facility] 02-04-2022 Note [facility] 02-04-2022 Miscellaneous Notes [facility] lab calls w/ critical lab results: Hgb 6.8 Hct 21.1 Pt identifiers and results read back for verification. Pt scheduled for 2 units RBCs tomorrow, 02/05. Angle Kamara, MONET documented in this encounter [facility] 02-04-2022 Miscellaneous Notes 2 units packed RBC's at [facility] on 02-05 8am. He is stopping for lab draw today. Orders and cbc were faxed to [facility]. documented in this encounter [facility] 02-04-2022 History of Present illness Narrative VS taken. States he is here because he feels very fatigued and slightly more short of breath. Wants to f/u with his hgb from this am. Hgb 6.8. Dr. Hummel made aware of results and assessment. Pt will be receiving order for a transfusion and Informed of plan. Pt agrees. documented in this encounter [facility] 01-30-2022 Note HNO ID: [id number] Author: Miriam Elizabeth RN Service: ? Author Type: Registered Nurse Type: Progress Notes Filed: 01/30/2022 3:44 PM Note Text: Pt denies need for transfusion today, states he will call if his symptoms get worse. Miriam Elizabeth RN [facility] 01-30-2022 History of Present illness Narrative Pt denies need for transfusion today, states he will call if his symptoms get worse. Miriam Elizabeth RN documented in this encounter [facility] 01-21-2022 Note HNO ID: [id number] Author: Celena Lind RN Service: ? Author Type: Registered Nurse Type: Progress Notes Filed: 01/21/2022 3:53 PM Note Text: Cr 1.[address] Watt. Pt given 500 mls NS. [facility] 01-21-2022 History of Present illness Narrative Cr 1.[address] Watt. Pt given 500 mls NS. documented in this encounter [facility] 01-18-2022 Note [facility] 01-18-2022 History of Present illness Narrative Repeat Cr 2.[address] Watt by lead rn gilson Elizabeth. Pt will receive 1 L NS today and return sunday 01/21 for repeat labs. documented in this encounter [facility] 01-14-2022 Note HNO ID: [id number] Author: Lexi Velasquez RN Service: ? Author Type: Registered Nurse Type: Progress Notes Filed: 01/14/2022 3:44 PM Note Text: [facility] 01-14-2022 Note [facility] 01-14-2022 Miscellaneous Notes Cr 2.13 [facility] with [facility], pt to increase oral fluids at home, we will recheck a CMP on 01/17. Please sign pending order is agreeable. Thanks! Miriam Elizabeth RN documented in this encounter [facility] 01-14-2022 Miscellaneous Notes Pt scheduled for 1 unit of PRBCs TB Friday (01/16) @ 900am. Type and cross tomorrow (01/15). Confirmed with pt, order faxed. documented in this encounter [facility] 01-14-2022 History of Present illness Narrative documented in this encounter [facility] 01-14-2022 History of Present illness Narrative Images from the original note were not included. NAME: Sandip Broussard CLINIC NO.: [id number] DATE OF SERVICE: January 14, 2022 Some [...] Epo usage. 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 [...] blood. Operated on nose- surgery w/ Dr. Hyde Last fall in [place]. Has tranexamic acid at home. Requesting ENT referral at [facility]. He is dehydrated and not keeping up with fluids. Risk Advisor is elevated exacerbating cause was likely letting [...] Eliquis daily at the recommendation of his powerbuilder. Since stopping the aspirin he has not had any further nosebleeds. He denies fevers, chills, night sweats and signs/symptoms of infection. He has persistent exertional shortness of breath. Updated Visit, September 20, 2020: Lloyd is 79 and returns with his Lisestte for discussion on his overall condition as [...] which included preparing to see the patient, nsjd-gc-urma patient care, completing clinical documentation, performing a medically appropriate examination and ordering medications, tests, or procedures. Asher Hummel MD, CPE Services Provided at: [place], [place] & [place], [place] CC: Dr. Flash Gomez (Cardiology [facility]) Dr. Oumou Cho MD documented in this encounter [facility] 01-07-2022 Nurse Note Patient Identification confirmed: yes. Injection given and documented on SEP per provider order. Kathy Morelos Ma documented in this encounter [facility] 01-02-2022 Miscellaneous Notes Added patient to [...] Miriam Elizabeth RN documented in this encounter [facility] 12-21-2021 History of Present illness Narrative 10 documented in this encounter [facility] 12-17-2021 History of Present illness Narrative Patient states he was recently in the [facility] for a mild heart attack, was released. Then was admitted a few days later to the [facility] for fluid on his lungs. States they removed it and he is feeling much better. Patient states he has had to wear his oxygen all the time since his admission to the [facility]. Did not wear his in to the facility today bc he didn;t feel like he needed it . Then his Pulse ox was low and we had to put ours on him. Encouraged patient to wear his oxygen at all times. Lexi Velasquez RN Patient spouse would like to be called prior to him finishing treatment [phone] Erica Bain RN documented in this encounter [facility] 12-17-2021 History of Present illness Narrative Images from the original note were not included. NAME: Sandip Broussard [facility] NO.: [id number] DATE OF SERVICE: December 17, 2021 Some [...] Epo usage. 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 [...] blood. Operated on nose- surgery w/ Dr. Hyde Last fall in [place]. Has tranexamic acid at home. Requesting ENT referral at [facility]. He is dehydrated and not keeping up with fluids. Risk Advisor is elevated exacerbating cause was likely letting [...] Eliquis daily at the recommendation of his powerbuilder. Since stopping the aspirin he has not [...] 12/17/2021: Sodium 145, potassium 3.4, BUN 30, Risk Advisor. 1.54, LDH 260, CBC: 1.98 > 10.2/32.5 [...] which included preparing to see the patient, nohb-om-yzvh patient care, completing clinical documentation, obtaining and/or reviewing separately obtained history, performing a medically appropriate examination, counseling and educating the patient/family/caregiver and ordering medications, tests, or procedures. Asher Hummel MD, CPE Services Provided at: [place], [place] & [place], [place] CC: Dr. Flash Gomez (Cardiology [facility]) Dr. Oumou Cho MD documented in this encounter [facility] 11-29-2021 History of Present illness Narrative Images from the original note were not included. NAME: Sandip Broussard [facility] NO.: [id number] DATE OF SERVICE: November 29, 2021 Some [...] Epo usage. 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 He was transfused, and medically managed after catheterization. 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 PLAN: 1. Hold Vidaza for 3 weeks (RTC in 3+ weeks on a Friday for possible start) 2. Consider Hospice - contact [facility] (current Home Health) 3. RTC in 3 [...] blood. Operated on nose- surgery w/ Dr. Hyde Last fall in [place]. Has tranexamic acid at home. Requesting ENT referral at [facility]. He is dehydrated and not keeping up with fluids. Risk Advisor is elevated exacerbating cause was likely letting [...] Eliquis daily at the recommendation of his powerbuilder. Since stopping the aspirin he has not [...] which included preparing to see the patient, gako-nx-seeu patient care, completing clinical documentation, obtaining and/or reviewing separately obtained history, performing a medically appropriate examination, ordering medications, tests, or procedures and care coordination (not separately reported). Asher Hummel MD, CPE Services Provided at: [place], [place] & [place], [place] CC: Dr. Flash Gomez (Cardiology [facility]) Dr. Oumou Cho MD documented in this encounter [facility] 11-29-2021 Miscellaneous Notes Records scanned. Update: Pt discharged home w/ home health on 11/25. [place]: Please scan pt's hospital records from [facility]. Thanks! Angle Kamara RN Thank you for the update. FYI: Pt's calls to inform us that the pt is currently admitted to ICU @ [facility] after suffering a heart attack on Friday. Pt found to have pneumonia as well. Notes the pt's condition is stable as of now. Spouse will call back to reschedule pt's appointments once a discharge plan is in place. Angle Kamara RN documented in this encounter [facility] 11-28-2021 Miscellaneous Notes DISCHARGE CALL BACK Today's date: November 28, 2021 Notified of Pt discharge by: Pt's spouse Patient discharged on 11/25/21 from [facility] to Home with Homecare Nurse Primary Cancer Diagnosis: MDS Admitting Diagnosis: Myocardial Infarction Discharge Summary/SBAR reviewed: No - requested from HIM. Handoff Discussed with Transitional Pastoral Worker: N/A Psychosocial Risk Factors: None If patient [...] be calling to schedule f/u w/ pt's powerbuilder. Discharged home w/ new meds. Spouse will be bringing new meds w/ them to tomorrow's f/u appointment. Angle Kamara RN documented in this encounter [facility] 11-27-2021 Note MR#: [id number] I [facility] Pt. 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 ASSESSMENT AND PLAN: 1. Qfu-FX-psuyrjdbi myocardial infarction, likely type 2, was temporarily [...] 2 and was stable at discharge. 6. Kjwr-tm-pqwxtfuh mitral regurgitation noted on TE. 7. Coronary [...] syndrome, currently on azacitidine injections monthly per [facility]. The patient's hemoglobin was stable while [...] the encoun (more content not included)... [facility] 11-16-2021 Miscellaneous Notes Per donald Asher/Dr. Brynn kumar for patient to wait for transfusion until Friday. Patient has been scheduled for transfusion @ [place] Friday, 11/19 @ 9:00 am. He will need to get TSC tomorrow before noon and go through the ER entrance. Spoke w/ November 16, 2021 12:01 PM and confirmed. Ada Perez Pt's notified and states the pt has c/o increased fatigue. Would like to proceed w/ transfusion @ [facility]. Orders given to Edd, MARII. Angle Kamara RN Call placed to pt. No answer. Message left requesting call back. Angle Kamara RN ----- Message from Asher Hummel MD sent at 11/15/2021 4:32 PM EDT ----- Probably could use a transfusion if he feels bad. documented in this encounter [facility] 11-01-2021 History of Present illness Narrative Miriam Elizabeth RN documented in this encounter [facility] 10-29-2021 Miscellaneous Notes FYI: Pt's spouse reports that the pt is scheduled to receive a blood transfusion @ [facility] tomorrow @ 8 AM. Angle Kamara RN documented in this encounter [facility] 10-29-2021 History of Present illness Narrative Lab work at the [facility] today, results scanned in. No ANC available, ok to treat per Dr. Watt. Lexi Velasquez RN documented in this encounter [facility] 10-25-2021 History of Present illness Narrative Images from the original note were not included. NAME: Sandip Broussard CLINIC NO.: [id number] DATE OF SERVICE: October 25, 2021 Some elements in this clinic note that are critical to medical decision making have been carefully reviewed and included from a prior clinic note dated: October 01, 2021. Referring Provider: Dr. Flash Pearl Additional Clinicians involved in aSndip Broussard's care: Dr. José Luis Velasquez, Dr. [...] blood. Operated on nose- surgery w/ Dr. Hyde Last fall in [place]. Has tranexamic acid at home. Requesting ENT referral at [facility]. He is dehydrated and not keeping up with fluids. Risk Advisor is elevated exacerbating cause was likely letting [...] Eliquis daily at the recommendation of his powerbuilder. Since stopping the aspirin he has not [...] Drug use: Not on file Wilfred Martinez APRN.PROJECT DEVELOPMENT LEADER Services Provided at: [place], [place] CC: Dr. Flash Gomez (Cardiology [facility]) Dr. Oumou Wade documented in this encounter [facility] 10-15-2021 History of Present illness Narrative [...] EAC free of lesions. TM retracted. Neurologic: labor economist II-XII grossly intact. Assessment/Plan: 1. H/o ETD. [...] 3 - Low documented in this encounter [facility] Evaluation + Plan note Future Appointments Appointment Date:03/10/2023 02:00:00 PM Scheduled Provider: [facility] Type:FM Medicare Wellness Subsequent Appointment Date:03/10/2023 02:40:00 PM Scheduled Provider:Álvaro Barton MD [facility] Appoint[facility] Type: Open Diagnostic Tests PendingUrinalysis 01/10/23 [facility] Evaluation + Plan note Future Appointments Appointment Date:03/10/2023 02:00:00 PM Scheduled [facility]: [facility] Type:FM Medicare Wellness Subsequent Appointment Date:03/10/2023 02:40:00 PM Scheduled Provider:Álvaro Barton MD [facility] Type: Open [facility] Evaluation + Plan note Future Appointments Appointment Date:03/17/2023 02:40:00 PM Scheduled Provider:Álvaro Barton MD [facility] Appoint[facility] Type: Open Appointment Date:03/18/2023 01:00:00 PM Scheduled Provider:ANTONIA MERCER MD Location:.ONCOLOGY Appointment Type:ONC Supportive Care New (FT) Appointment Date:04/16/2023 02:40:00 PM Scheduled Provider:Álvaro Barton MD [facility] Type: Open Appointment Date:04/22/2023 02:00:00 PM Scheduled Provider: Location:.ONCOLOGY Appointment Type:ONC Office Visit 30 (FT) Appointment Date:04/05/2024 02:00:00 PM Scheduled Provider: [facility] Type:FM Medicare Wellness Subsequent Diagnostic Tests PendingCBC w/ Auto Diff 03/11/23Comprehensive Metabolic Panel 04/01/23Lactate Dehydrogenase 04/01/23 Future Scheduled TestsStool Occult Blood 03/12/23 [facility] Evaluation note Diagnosis Chronic Eustachian tube dysfunction, bilateral- Primary Epistaxis [facility] CRF (chronic renal failure), [...] Myelodysplastic syndrome, unspecified [facility] Diagnosis Myelodysplastic syndrome (HCC)- Primary Myelodysplastic syndrome, unspecified CRF (chronic renal failure), stage 4 (severe) (HCC) Anemia of chronic renal failure, stage 4 (severe) (HCC) 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 [facility] Diagnosis Acute heart failure, unspecified heart failure type (HCC)- Primary [facility]* Diagnosis Myelodysplastic syndrome [...] Stage IV (severe) [facility]* Diagnosis Myelodysplastic syndrome (HCC)- Primary Myelodysplastic syndrome, unspecified [facility]* Diagnosis Myelodysplastic syndrome (HCC)- Primary Myelodysplastic syndrome, unspecified [facility]* Diagnosis Myelodysplastic syndrome (HCC)- Primary Myelodysplastic syndrome, unspecified [facility]* Diagnosis Myelodysplastic syndrome [...] diastolic heart failure documented in this encounter [facility] note* Diagnosis Anemia of chronic renal failure, stage 4 (severe) (HCC)- Primary 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 loss Iron deficiency anemia secondary to blood loss (chronic) Myelodysplastic syndrome (HCC) Myelodysplastic syndrome, unspecified documented in this encounter [facility] note* Diagnosis Myelodysplastic syndrome (HCC)- Primary Myelodysplastic syndrome, unspecified CRF (chronic renal failure), stage 4 (severe) (HCC) Anemia of chronic renal failure, stage 4 (severe) (HCC) 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 loss Iron deficiency anemia secondary to blood loss (chronic) CKD (chronic kidney disease) stage 4, GFR 15-29 ml/min (HCC) Chronic kidney disease, Stage IV (severe) [facility] Diagnosis Myelodysplastic syndrome (HCC)- Primary Myelodysplastic syndrome, unspecified documented [facility] encounter [facility] note* Diagnosis Myelodysplastic syndrome (HCC)- Primary Myelodysplastic syndrome, unspecified CRF (chronic renal failure), stage 4 (severe) (HCC) 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 documented in this encounter [facility] note* Diagnosis CRF (chronic renal failure), stage 4 (severe) (HCC)- Primary Myelodysplastic syndrome (HCC) Myelodysplastic syndrome, unspecified [facility] Diagnosis Myelodysplastic syndrome (HCC) Myelodysplastic syndrome, unspecified CRF (chronic renal failure), stage 4 (severe) (HCC) Anemia of chronic renal failure, stage 4 (severe) (HCC) 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 [facility] Diagnosis Anemia of chronic renal failure, stage 4 (severe) (HCC)- Primary [facility] Diagnosis Myelodysplastic syndrome (HCC)- Primary Myelodysplastic syndrome, unspecified Anemia of chronic renal failure, stage 4 (severe) (HCC) [facility] Diagnosis Anemia of [...] Stage IV (severe) documented in this encounter [facility] note* Diagnosis CRF (chronic renal failure), stage 4 (severe) (HCC)- Primary [facility] Diagnosis Myelodysplastic syndrome (HCC)- Primary Myelodysplastic syndrome, unspecified CRF (chronic renal failure), stage 4 (severe) (HCC) [facility] Diagnosis CRF (chronic [...] Myelodysplastic syndrome, unspecified [facility] Diagnosis Anemia of [...] Stage IV (severe) documented in this encounter [facility] note* Diagnosis Myelodysplastic syndrome (HCC)- Primary Myelodysplastic syndrome, unspecified CKD (chronic kidney disease) stage 4, GFR 15-29 ml/min (HCC) Chronic kidney disease, Stage IV (severe) Anemia of chronic renal failure, stage 4 (severe) (HCC) 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 loss Iron deficiency anemia secondary to blood loss (chronic) documented in this encounter [facility] note* Diagnosis Myelodysplastic syndrome (HCC)- Primary Myelodysplastic syndrome, unspecified Anemia of chronic renal failure, stage 4 (severe) (HCC) documented in this encounter [facility] note* Diagnosis Anemia of chronic renal failure, stage 4 (severe) (HCC)- Primary 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 loss Iron deficiency anemia secondary to blood loss (chronic) Myelodysplastic syndrome (HCC) Myelodysplastic syndrome, unspecified CRF (chronic renal failure), stage 4 (severe) (HCC) CKD (chronic kidney disease) stage 4, GFR 15-29 ml/min (HCC) Chronic kidney disease, Stage IV (severe) documented in this encounter [facility] note* Diagnosis Myelodysplastic syndrome (HCC)- Primary Myelodysplastic syndrome, unspecified CKD (chronic kidney disease) stage 4, GFR 15-29 ml/min (HCC) Chronic kidney disease, Stage IV (severe) Anemia of chronic renal failure, stage 4 (severe) (HCC) [facility] Diagnosis Malignant neoplasm of prostate (HCC)- Primary Malignant neoplasm of prostate documented in this encounter [facility] note* Diagnosis Myelodysplastic syndrome (HCC)- Primary Myelodysplastic syndrome, unspecified [facility] Diagnosis MDS (myelodysplastic syndrome) (HCC)- Primary Myelodysplastic syndrome, unspecified [facility] Diagnosis Myelodysplastic syndrome (HCC)- Primary Myelodysplastic syndrome, unspecified CRF (chronic renal failure), stage 4 (severe) (HCC) [facility] Diagnosis Myelodysplastic syndrome (HCC)- Primary Myelodysplastic syndrome, unspecified CRF (chronic renal failure), stage 4 (severe) (HCC) Anemia of chronic renal failure, stage 4 (severe) (HCC) [facility] Diagnosis CRF (chronic renal [...] Myelodysplastic syndrome, unspecified documented in [facility] encounter [facility] note* Diagnosis Anemia of chronic renal failure, stage 4 (severe) (HCC)- Primary 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 loss Iron deficiency anemia secondary to blood loss (chronic) Myelodysplastic syndrome (HCC) Myelodysplastic syndrome, unspecified CRF (chronic renal failure), stage 4 (severe) (HCC) CKD (chronic kidney disease) stage 4, GFR 15-29 ml/min (HCC) Chronic kidney disease, Stage IV (severe) documented in this encounter [facility] note* Diagnosis MDS (myelodysplastic syndrome) (HCC)- Primary Myelodysplastic syndrome, unspecified Anemia of chronic renal failure, stage 4 (severe) (HCC) 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 CRF (chronic renal failure), stage 4 (severe) (HCC) [facility] Diagnosis CRF (chronic renal [...] Myelodysplastic syndrome, unspecified [facility] Diagnosis Myelodysplastic syndrome (HCC)- [...] inoculation against influenza [facility] Diagnosis Myelodysplastic syndrome (HCC)- Primary Myelodysplastic syndrome, unspecified MDS (myelodysplastic syndrome) (HCC) Myelodysplastic syndrome, unspecified 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 CRF (chronic renal failure), stage 4 (severe) (HCC) documented in this encounter [facility] note* Diagnosis Myelodysplastic syndrome (HCC)- Primary Myelodysplastic syndrome, unspecified CRF (chronic renal failure), stage 4 (severe) (HCC) Anemia of chronic renal failure, stage 4 (severe) (HCC) 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 loss Iron deficiency anemia secondary to blood loss (chronic) CKD (chronic kidney disease) stage 4, GFR 15-29 ml/min (HCC) Chronic kidney disease, Stage IV (severe) [facility] Diagnosis Myelodysplastic syndrome (HCC)- Primary Myelodysplastic syndrome, unspecified documented in this encounter [facility] note* Diagnosis MDS (myelodysplastic syndrome) (HCC)- Primary Myelodysplastic syndrome, unspecified Dependent for standing 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 CRF (chronic renal failure), stage 4 (severe) (HCC) 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 [facility] Diagnosis Myelodysplastic syndrome [...] Stage IV (severe) documented in this encounter [facility] note* Diagnosis MDS (myelodysplastic syndrome) (HCC)- Primary Myelodysplastic syndrome, unspecified documented in this encounter [facility] note* Diagnosis Myelodysplastic syndrome (HCC)- Primary Myelodysplastic syndrome, unspecified 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 CRF (chronic renal failure), stage 4 (severe) (HCC) CKD (chronic kidney disease) stage 4, GFR 15-29 ml/min (HCC) Chronic kidney disease, Stage IV (severe) documented in this encounter [facility] note* Diagnosis Myelodysplastic syndrome (HCC)- Primary Myelodysplastic syndrome, unspecified CRF (chronic renal failure), stage 4 (severe) (HCC) Anemia of chronic renal failure, stage 4 (severe) (HCC) 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 loss Iron deficiency anemia secondary to blood loss (chronic) CKD (chronic kidney disease) stage 4, GFR 15-29 ml/min (HCC) Chronic kidney disease, Stage IV (severe) documented in this encounter [facility] note* Diagnosis MDS (myelodysplastic syndrome) (HCC)- Primary Myelodysplastic syndrome, unspecified CRF (chronic renal failure), stage 4 (severe) (HCC) Anemia of chronic renal failure, stage 4 (severe) (HCC) documented in this encounter [facility] note* Diagnosis Myelodysplastic syndrome (HCC)- Primary Myelodysplastic syndrome, unspecified documented in this encounter [facility] note* Diagnosis MDS (myelodysplastic syndrome) (HCC)- [...] Stage IV (severe) [facility] Diagnosis Myelodysplastic syndrome (HCC)- [...] Stage IV (severe) [facility] Diagnosis Myelodysplastic syndrome (HCC)- Primary Myelodysplastic syndrome, unspecified [facility] Diagnosis MDS (myelodysplastic syndrome) (HCC)- Primary Myelodysplastic syndrome, unspecified CRF (chronic renal failure), stage 4 (severe) (HCC) [facility] Diagnosis Myelodysplastic syndrome (HCC)- [...] Stage IV (severe) [facility] Diagnosis Myelodysplastic syndrome (HCC)- Primary Myelodysplastic syndrome, unspecified [facility] Diagnosis Myelodysplastic syndrome [...] Stage IV (severe) [facility] Diagnosis Myelodysplastic syndrome (HCC)- Primary Myelodysplastic syndrome, unspecified 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 Anemia of chronic renal failure, stage 4 (severe) (HCC) [facility] Diagnosis MDS (myelodysplastic syndrome) (HCC)- Primary Myelodysplastic syndrome, unspecified [facility] Diagnosis Myelodysplastic syndrome (HCC)- Primary Myelodysplastic syndrome, unspecified [facility] Diagnosis MDS (myelodysplastic syndrome) (HCC)- Primary Myelodysplastic syndrome, unspecified 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 Anemia of chronic renal failure, stage 4 (severe) (HCC) Myelodysplastic syndrome (HCC) Myelodysplastic syndrome, unspecified [facility] Diagnosis MDS (myelodysplastic syndrome) (HCC)- Primary Myelodysplastic syndrome, unspecified Anemia of chronic renal failure, stage 4 (severe) (HCC) CRF (chronic renal failure), stage 4 (severe) (HCC) [facility] Diagnosis Anemia of chronic renal failure, stage 4 (severe) (HCC)- Primary 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 loss Iron deficiency anemia secondary to blood loss (chronic) Myelodysplastic syndrome (HCC) Myelodysplastic syndrome, unspecified [facility] Diagnosis Myelodysplastic syndrome (HCC)- [...] Stage IV (severe) [facility] Diagnosis MDS (myelodysplastic syndrome) (HCC)- Primary Myelodysplastic syndrome, unspecified Anemia of chronic renal failure, stage 4 (severe) (HCC) CRF (chronic renal failure), stage 4 (severe) (HCC) 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 Myelodysplastic syndrome (HCC) Myelodysplastic syndrome, unspecified [facility] Diagnosis 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 loss- Primary Iron deficiency anemia secondary to blood loss (chronic) MDS (myelodysplastic syndrome) (HCC) Myelodysplastic syndrome, unspecified Anemia of chronic renal failure, stage 4 (severe) (HCC) [facility] Diagnosis Myelodysplastic syndrome (HCC)- Primary Myelodysplastic syndrome, unspecified Anemia of chronic renal failure, stage 4 (severe) (HCC) 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 [facility] Diagnosis Myelodysplastic syndrome (HCC)- Primary Myelodysplastic syndrome, unspecified [facility] Diagnosis Myelodysplastic syndrome (HCC)- [...] Stage IV (severe) [facility] Diagnosis MDS (myelodysplastic syndrome) [...] due to hypovolemia [facility] Diagnosis Myelodysplastic syndrome (HCC)- Primary Myelodysplastic syndrome, unspecified [facility] Diagnosis MDS (myelodysplastic syndrome) (HCC)- Primary Myelodysplastic syndrome, unspecified Anemia of chronic renal failure, stage 4 (severe) (HCC) [facility] Diagnosis MDS (myelodysplastic syndrome) (HCC)- Primary Myelodysplastic syndrome, unspecified 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 loss Iron deficiency anemia secondary to blood loss (chronic) Anemia of chronic renal failure, stage 4 (severe) (HCC) [facility] Diagnosis Anemia of chronic renal failure, stage 4 (severe) (HCC)- Primary 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 loss Iron deficiency anemia secondary to blood loss (chronic) MDS (myelodysplastic syndrome) (HCC) Myelodysplastic syndrome, unspecified [facility] Diagnosis MDS (myelodysplastic syndrome) (HCC)- Primary Myelodysplastic syndrome, unspecified Anemia of chronic renal failure, stage 4 (severe) (HCC) 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 loss Iron deficiency anemia secondary to blood loss (chronic) [facility] Diagnosis MDS (myelodysplastic syndrome) (HCC)- Primary Myelodysplastic syndrome, unspecified Anemia of chronic renal failure, stage 4 (severe) (HCC) documented [facility] encounter [facility] note* Diagnosis MDS (myelodysplastic syndrome) (HCC)- Primary Myelodysplastic syndrome, unspecified Anemia, unspecified type documented in this encounter [facility] note* Diagnosis MDS (myelodysplastic syndrome) (HCC)- Primary Myelodysplastic syndrome, unspecified [facility] Diagnosis Anemia of chronic renal failure, stage 4 (severe) (HCC)- Primary 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 loss Iron deficiency anemia secondary to blood loss (chronic) MDS (myelodysplastic syndrome) (HCC) Myelodysplastic syndrome, unspecified documented in this encounter [facility] note* Diagnosis MDS (myelodysplastic syndrome) (HCC)- Primary Myelodysplastic syndrome, unspecified Anemia of chronic renal failure, stage 4 (severe) (HCC) Type 2 diabetes mellitus with stage 3 chronic kidney disease, with long-term current use of insulin, unspecified whether stage 3a or 3b CKD (HCC) documented in this encounter [facility] course Narrative No data available for this [facility] No data available for this [facility] No data available for this [facility] Summary Purpose Family History No Family History Records FoundNo Family History Records FoundNo Family History Records FoundNo Family History Records FoundNo Family History Records FoundNo Family History Records FoundNo Family History Records FoundNo Family History Records Found Advance Directives No Advanced Directives Records FoundDocuments on File Type Date Recorded 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 Advance Directive(s) 07/06/2020 6:15 PM Documents on File Type Date Recorded 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 Advance Directive(s) 07/06/2020 6:15 PM [...] Medication Order [facility] Action Dose Rate Site decitabine 22.36 mg subcutaneous [...] [facility]ICAL [facility]ENTER Action Action Dose Rate Site decitabine 22.36 mg subcutaneous [...] [facility]ICAL [facility]ENTER Action Action Dose Rate Site decitabine 22.36 mg subcutaneous [...] Specialty Diagnoses / Procedures Referred By Jorge t Referred To Contact Diagnoses Myelodysplastic syndrome (HCC) Procedures CONSULT TO HEMATOLOGY/ONCOLOGY OFFICE/OUTPATIENT [facility] 60-74 MINUTES Asher Hummel MD [address] [place] [address] [place] [address] Referral ID Status Reason Start Date Expiration Date Visits Requested Visits Authorized [id number] Authorized PCP Requested Referral 03/15/2022 03/15/2023 1 1 Additional Source Comments (unrecognized sect ion and content) No Status Records FoundNo Status Records FoundNo Status Records FoundNo Status Records FoundNo Status Records FoundNo Status Records FoundNo Status Records FoundNo Status Records Found INFORMATION SOURCE (unrecogn ized section and content) DATE CREATED AUTHOR 07/05/2018 [facility] DATE CREATED AUTHOR AUTHOR'S ORGANIZ ATION 12/22/2021 [facility] DATE CREATED AUTHOR AUTHOR'S ORGANIZ ATION 01/03/2023 [facility] DATE CREATED AUTHOR AUTHOR'S ORGANIZ ATION 01/05/2023 [facility] DATE CREATED AUTHOR AUTHOR'S ORGANIZ ATION 08/20/2023 [facility] DATE CREATED AUTHOR AUTHOR'S ORGANIZ ATION 10/06/2023 [facility] DATE CREATED AUTHOR AUTHOR'S ORGANIZ ATION 10/14/2023 Gustavus Alberto [facility] DATE CREATED AUTHOR AUTHOR'S ORGANIZ ATION 10/15/2023 [facility] Source Comments (unrecognize d section and content) In the event this informatio n is protected by the Federal Confidentiality of Alcohol and Drug Abuse Patient Records regulations: The Federal rules restrict any use of the information to criminally investigate or prosecute any alcohol or drug abuse patient.[facility] the event this information is protected by the Federal Confidentiality of Alcohol and Drug Abuse Patient Records regulations: The Federal rules restrict any use of the information to criminally investigate or prosecute any alcohol or drug abuse patient.[facility] the event this information is protected by the Federal Confidentiality of Alcohol and Drug Abuse Patient Records regulations: The Federal rules restrict any use of the information to criminally investigate or prosecute any alcohol or drug abuse patient.[facility] the event this information is protected by the Federal Confidentiality of Alcohol and Drug Abuse Patient Records regulations: The Federal rules restrict any use of the information to criminally investigate or prosecute any alcohol or drug abuse patient.[facility] the event this information is protected by the Federal Confidentiality of Alcohol and Drug Abuse Patient Records regulations: The Federal rules restrict any use of the information to criminally investigate or prosecute any alcohol or drug abuse patient.[facility] the event this information is protected by the Federal Confidentiality of Alcohol and Drug Abuse Patient Records regulations: The Federal rules restrict any use of the information to criminally investigate or prosecute any alcohol or drug abuse patient.[facility] the event this information is protected by the Federal Confidentiality of Alcohol and Drug Abuse Patient Records regulations: The Federal rules restrict any use of the information to criminally investigate or prosecute any alcohol or drug abuse patient.[facility] the event this information is protected by the Federal Confidentiality of Alcohol and Drug Abuse Patient Records regulations: The Federal rules restrict any use of the information to criminally investigate or prosecute any alcohol or drug abuse patient.[facility] the event this information is protected by the Federal Confidentiality of Alcohol and Drug Abuse Patient Records regulations: The Federal rules restrict any use of the information to criminally investigate or prosecute any alcohol or drug abuse patient.[facility] the event this information is protected by the Federal Confidentiality of Alcohol and Drug Abuse Patient Records regulations: The Federal rules restrict any use of the information to criminally investigate or prosecute any alcohol or drug abuse patient.[facility] the event this information is protected by the Federal Confidentiality of Alcohol and Drug Abuse Patient Records regulations: The Federal rules restrict any use of the information to criminally investigate or prosecute any alcohol or drug abuse patient.[facility] the event this information is protected by the Federal Confidentiality of Alcohol and Drug Abuse Patient Records regulations: The Federal rules restrict any use of the information to criminally investigate or prosecute any alcohol or drug abuse patient.[facility] the event this information is protected by the Federal Confidentiality of Alcohol and Drug Abuse Patient Records regulations: The Federal rules restrict any use of the information to criminally investigate or prosecute any alcohol or drug abuse patient.[facility] Hospital[facility] the event this information is protected by the Federal Confidentiality of Alcohol and Drug Abuse Patient Records regulations: The Federal rules restrict any use of the information to criminally investigate or prosecute any alcohol or drug abuse patient.[facility] Hospital[facility] the event this information is protected by the Federal Confidentiality of Alcohol and Drug Abuse Patient Records regulations: The Federal rules restrict any use of the information to criminally investigate or prosecute any alcohol or drug abuse patient.[facility]In the event this information is protected by the Federal Confidentiality of Alcohol and Drug Abuse Patient Records regulations: The Federal rules restrict any use of the information to criminally investigate or prosecute any alcohol or drug abuse patient.[facility] HospitalIn the event this information is protected by the Federal Confidentiality of Alcohol and Drug Abuse Patient Records regulations: The Federal rules restrict any use of the information to criminally investigate or prosecute any alcohol or drug abuse patient.[facility] HospitalIn the event this information is protected by the Federal Confidentiality of Alcohol and Drug Abuse Patient Records regulations: The Federal rules restrict any use of the information to criminally investigate or prosecute any alcohol or drug abuse patient.[facility] HospitalIn the event this information is protected by the Federal Confidentiality of Alcohol and Drug Abuse Patient Records regulations: The Federal rules restrict any use of the information to criminally investigate or prosecute any alcohol or drug abuse patient.[facility] HospitalIn the event this information is protected by the Federal Confidentiality of Alcohol and Drug Abuse Patient Records regulations: The Federal rules restrict any use of the information to criminally investigate or prosecute any alcohol or drug abuse patient.[facility] HospitalIn the event this information is protected by the Federal Confidentiality of Alcohol and Drug Abuse Patient Records regulations: The Federal rules restrict any use of the information to criminally investigate or prosecute any alcohol or drug abuse patient.[facility] HospitalIn the event this information is protected by the Federal Confidentiality of Alcohol and Drug Abuse Patient Records regulations: The Federal rules restrict any use of the information to criminally investigate or prosecute any alcohol or drug abuse patient.[facility] HospitalIn the event this information is protected by the Federal Confidentiality of Alcohol and Drug Abuse Patient Records regulations: The Federal rules restrict any use of the information to criminally investigate or prosecute any alcohol or drug abuse patient.[facility] HospitalIn the event this information is protected by the Federal Confidentiality of Alcohol and Drug Abuse Patient Records regulations: The Federal rules restrict any use of the information to criminally investigate or prosecute any alcohol or drug abuse patient.[facility] HospitalIn the event this information is protected by the Federal Confidentiality of Alcohol and Drug Abuse Patient Records regulations: The Federal rules restrict any use of the information to criminally investigate or prosecute any alcohol or drug abuse patient.[facility] HospitalIn the event this information is protected by the Federal Confidentiality of Alcohol and Drug Abuse Patient Records regulations: The Federal rules restrict any use of the information to criminally investigate or prosecute any alcohol or drug abuse patient.[facility] HospitalIn the event this information is protected by the Federal Confidentiality of Alcohol and Drug Abuse Patient Records regulations: The Federal rules restrict any use of the information to criminally investigate or prosecute any alcohol or drug abuse patient.[facility] HospitalIn the event this information is protected by the Federal Confidentiality of Alcohol and Drug Abuse Patient Records regulations: The Federal rules restrict any use of the information to criminally investigate or prosecute any alcohol or drug abuse patient.[facility] HospitalIn the event this information is protected by the Federal Confidentiality of Alcohol and Drug Abuse Patient Records regulations: The Federal rules restrict any use of the information to criminally investigate or prosecute any alcohol or drug abuse patient.[facility] HospitalIn the event this information is protected by the Federal Confidentiality of Alcohol and Drug Abuse Patient Records regulations: The Federal rules restrict any use of the information to criminally investigate or prosecute any alcohol or drug abuse patient.[facility] HospitalIn the event this information is protected by the Federal Confidentiality of Alcohol and Drug Abuse Patient Records regulations: The Federal rules restrict any use of the information to criminally investigate or prosecute any alcohol or drug abuse patient.[facility] HospitalIn the event this information is protected by the Federal Confidentiality of Alcohol and Drug Abuse Patient Records regulations: The Federal rules restrict any use of the information to criminally investigate or prosecute any alcohol or drug abuse patient.[facility] HospitalIn the event this information is protected by the Federal Confidentiality of Alcohol and Drug Abuse Patient Records regulations: The Federal rules restrict any use of the information to criminally investigate or prosecute any alcohol or drug abuse patient.[facility] HospitalIn the event this information is protected by the Federal Confidentiality of Alcohol and Drug Abuse Patient Records regulations: The Federal rules restrict any use of the information to criminally investigate or prosecute any alcohol or drug abuse patient.[facility] HospitalIn the event this information is protected by the Federal Confidentiality of Alcohol and Drug Abuse Patient Records regulations: The Federal rules restrict any use of the information to criminally investigate or prosecute any alcohol or drug abuse patient.[facility] HospitalIn the event this information is protected by the Federal Confidentiality of Alcohol and Drug Abuse Patient Records regulations: The Federal rules restrict any use of the information to criminally investigate or prosecute any alcohol or drug abuse patient.[facility] HospitalIn the event this information is protected by the Federal Confidentiality of Alcohol and Drug Abuse Patient Records regulations: The Federal rules restrict any use of the information to criminally investigate or prosecute any alcohol or drug abuse patient.[facility] HospitalIn the event this information is protected by the Federal Confidentiality of Alcohol and Drug Abuse Patient Records regulations: The Federal rules restrict any use of the information to criminally investigate or prosecute any alcohol or drug abuse patient.[facility] HospitalIn the event this information is protected by the Federal Confidentiality of Alcohol and Drug Abuse Patient Records regulations: The Federal rules restrict any use of the information to criminally investigate or prosecute any alcohol or drug abuse patient.[facility] HospitalIn the event this information is protected by the Federal Confidentiality of Alcohol and Drug Abuse Patient Records regulations: The Federal rules restrict any use of the information to criminally investigate or prosecute any alcohol or drug abuse patient.[facility] HospitalIn the event this information is protected by the Federal Confidentiality of Alcohol and Drug Abuse Patient Records regulations: The Federal rules restrict any use of the information to criminally investigate or prosecute any alcohol or drug abuse patient.[facility] HospitalIn the event this information is protected by the Federal Confidentiality of Alcohol and Drug Abuse Patient Records regulations: The Federal rules restrict any use of the information to criminally investigate or prosecute any alcohol or drug abuse patient.[facility] HospitalIn the event this information is protected by the Federal Confidentiality of Alcohol and Drug Abuse Patient Records regulations: The Federal rules restrict any use of the information to criminally investigate or prosecute any alcohol or drug abuse patient.[facility] HospitalIn the event this information is protected by the Federal Confidentiality of Alcohol and Drug Abuse Patient Records regulations: The Federal rules restrict any use of the information to criminally investigate or prosecute any alcohol or drug abuse patient.[facility] HospitalIn the event this information is protected by the Federal Confidentiality of Alcohol and Drug Abuse Patient Records regulations: The Federal rules restrict any use of the information to criminally investigate or prosecute any alcohol or drug abuse patient.[facility] HospitalIn the event this information is protected by the Federal Confidentiality of Alcohol and Drug Abuse Patient Records regulations: The Federal rules restrict any use of the information to criminally investigate or prosecute any alcohol or drug abuse patient.[facility] HospitalIn the event this information is protected by the Federal Confidentiality of Alcohol and Drug Abuse Patient Records regulations: The Federal rules restrict any use of the information to criminally investigate or prosecute any alcohol or drug abuse patient.[facility] HospitalIn the event this information is protected by the Federal Confidentiality of Alcohol and Drug Abuse Patient Records regulations: The Federal rules restrict any use of the information to criminally investigate or prosecute any alcohol or drug abuse patient.[facility] HospitalIn the event this information is protected by the Federal Confidentiality of Alcohol and Drug Abuse Patient Records regulations: The Federal rules restrict any use of the information to criminally investigate or prosecute any alcohol or drug abuse patient.[facility] HospitalIn the event this information is protected by the Federal Confidentiality of Alcohol and Drug Abuse Patient Records regulations: The Federal rules restrict any use of the information to criminally investigate or prosecute any alcohol or drug abuse patient.[facility] HospitalIn the event this information is protected by the Federal Confidentiality of Alcohol and Drug Abuse Patient Records regulations: The Federal rules restrict any use of the information to criminally investigate or prosecute any alcohol or drug abuse patient.[facility] HospitalIn the event this information is protected by the Federal Confidentiality of Alcohol and Drug Abuse Patient Records regulations: The Federal rules restrict any use of the information to criminally investigate or prosecute any alcohol or drug abuse patient.[facility] HospitalIn the event this information is protected by the Federal Confidentiality of Alcohol and Drug Abuse Patient Records regulations: The Federal rules restrict any use of the information to criminally investigate or prosecute any alcohol or drug abuse patient.[facility] HospitalIn the event this information is protected by the Federal Confidentiality of Alcohol and Drug Abuse Patient Records regulations: The Federal rules restrict any use of the information to criminally investigate or prosecute any alcohol or drug abuse patient.[facility] HospitalIn the event this information is protected by the Federal Confidentiality of Alcohol and Drug Abuse Patient Records regulations: The Federal rules restrict any use of the information to criminally investigate or prosecute any alcohol or drug abuse patient.[facility] HospitalIn the event this information is protected by the Federal Confidentiality of Alcohol and Drug Abuse Patient Records regulations: The Federal rules restrict any use of the information to criminally investigate or prosecute any alcohol or drug abuse patient.[facility] HospitalIn the event this information is protected by the Federal Confidentiality of Alcohol and Drug Abuse Patient Records regulations: The Federal rules restrict any use of the information to criminally investigate or prosecute any alcohol or drug abuse patient.[facility] HospitalIn the event this information is protected by the Federal Confidentiality of Alcohol and Drug Abuse Patient Records regulations: The Federal rules restrict any use of the information to criminally investigate or prosecute any alcohol or drug abuse patient.[facility] HospitalIn the event this information is protected by the Federal Confidentiality of Alcohol and Drug Abuse Patient Records regulations: The Federal rules restrict any use of the information to criminally investigate or prosecute any alcohol or drug abuse patient.[facility] HospitalIn the event this information is protected by the Federal Confidentiality of Alcohol and Drug Abuse Patient Records regulations: The Federal rules restrict any use of the information to criminally investigate or prosecute any alcohol or drug abuse patient.[facility] HospitalIn the event this information is protected by the Federal Confidentiality of Alcohol and Drug Abuse Patient Records regulations: The Federal rules restrict any use of the information to criminally investigate or prosecute any alcohol or drug abuse patient.[facility] HospitalIn the event this information is protected by the Federal Confidentiality of Alcohol and Drug Abuse Patient Records regulations: The Federal rules restrict any use of the information to criminally investigate or prosecute any alcohol or drug abuse patient.[facility] HospitalIn the event this information is protected by the Federal Confidentiality of Alcohol and Drug Abuse Patient Records regulations: The Federal rules restrict any use of the information to criminally investigate or prosecute any alcohol or drug abuse patient.[facility] HospitalIn the event this information is protected by the Federal Confidentiality of Alcohol and Drug Abuse Patient Records regulations: The Federal rules restrict any use of the information to criminally investigate or prosecute any alcohol or drug abuse patient.[facility] HospitalIn the event this information is protected by the Federal Confidentiality of Alcohol and Drug Abuse Patient Records regulations: The Federal rules restrict any use of the information to criminally investigate or prosecute any alcohol or drug abuse patient.[facility] HospitalIn the event this information is protected by the Federal Confidentiality of Alcohol and Drug Abuse Patient Records regulations: The Federal rules restrict any use of the information to criminally investigate or prosecute any alcohol or drug abuse patient.[facility] HospitalIn the event this information is protected by the Federal Confidentiality of Alcohol and Drug Abuse Patient Records regulations: The Federal rules restrict any use of the information to criminally investigate or prosecute any alcohol or drug abuse patient.[facility] HospitalIn the event this information is protected by the Federal Confidentiality of Alcohol and Drug Abuse Patient Records regulations: The Federal rules restrict any use of the information to criminally investigate or prosecute any alcohol or drug abuse patient.[facility] HospitalIn the event this information is protected by the Federal Confidentiality of Alcohol and Drug Abuse Patient Records regulations: The Federal rules restrict any use of the information to criminally investigate or prosecute any alcohol or drug abuse patient.[facility] HospitalIn the event this information is protected by the Federal Confidentiality of Alcohol and Drug Abuse Patient Records regulations: The Federal rules restrict any use of the information to criminally investigate or prosecute any alcohol or drug abuse patient.[facility] HospitalIn the event this information is protected by the Federal Confidentiality of Alcohol and Drug Abuse Patient Records regulations: The Federal rules restrict any use of the information to criminally investigate or prosecute any alcohol or drug abuse patient.[facility] HospitalIn the event this information is protected by the Federal Confidentiality of Alcohol and Drug Abuse Patient Records regulations: The Federal rules restrict any use of the information to criminally investigate or prosecute any alcohol or drug abuse patient.[facility] HospitalIn the event this information is protected by the Federal Confidentiality of Alcohol and Drug Abuse Patient Records regulations: The Federal rules restrict any use of the information to criminally investigate or prosecute any alcohol or drug abuse patient.[facility] HospitalIn the event this information is protected by the Federal Confidentiality of Alcohol and Drug Abuse Patient Records regulations: The Federal rules restrict any use of the information to criminally investigate or prosecute any alcohol or drug abuse patient.[facility] HospitalIn the event this information is protected by the Federal Confidentiality of Alcohol and Drug Abuse Patient Records regulations: The Federal rules restrict any use of the information to criminally investigate or prosecute any alcohol or drug abuse patient.[facility] HospitalIn the event this information is protected by the Federal Confidentiality of Alcohol and Drug Abuse Patient Records regulations: The Federal rules restrict any use of the information to criminally investigate or prosecute any alcohol or drug abuse patient.[facility] HospitalIn the event this information is protected by the Federal Confidentiality of Alcohol and Drug Abuse Patient Records regulations: The Federal rules restrict any use of the information to criminally investigate or prosecute any alcohol or drug abuse patient.[facility] HospitalIn the event this information is protected by the Federal Confidentiality of Alcohol and Drug Abuse Patient Records regulations: The Federal rules restrict any use of the information to criminally investigate or prosecute any alcohol or drug abuse patient.[facility] HospitalIn the event this information is protected by the Federal Confidentiality of Alcohol and Drug Abuse Patient Records regulations: The Federal rules restrict any use of the information to criminally investigate or prosecute any alcohol or drug abuse patient.[facility] HospitalIn the event this information is protected by the Federal Confidentiality of Alcohol and Drug Abuse Patient Records regulations: The Federal rules restrict any use of the information to criminally investigate or prosecute any alcohol or drug abuse patient.[facility] HospitalIn the event this information is protected by the Federal Confidentiality of Alcohol and Drug Abuse Patient Records regulations: The Federal rules restrict any use of the information to criminally investigate or prosecute any alcohol or drug abuse patient.[facility] HospitalIn the event this information is protected by the Federal Confidentiality of Alcohol and Drug Abuse Patient Records regulations: The Federal rules restrict any use of the information to criminally investigate or prosecute any alcohol or drug abuse patient.[facility] HospitalIn the event this information is protected by the Federal Confidentiality of Alcohol and Drug Abuse Patient Records regulations: The Federal rules restrict any use of the information to criminally investigate or prosecute any alcohol or drug abuse patient.[facility] HospitalIn the event this information is protected by the Federal Confidentiality of Alcohol and Drug Abuse Patient Records regulations: The Federal rules restrict any use of the information to criminally investigate or prosecute any alcohol or drug abuse patient.[facility] HospitalIn the event this information is protected by the Federal Confidentiality of Alcohol and Drug Abuse Patient Records regulations: The Federal rules restrict any use of the information to criminally investigate or prosecute any alcohol or drug abuse patient.[facility] HospitalIn the event this information is protected by the Federal Confidentiality of Alcohol and Drug Abuse Patient Records regulations: The Federal rules restrict any use of the information to criminally investigate or prosecute any alcohol or drug abuse patient.[facility] HospitalIn the event this information is protected by the Federal Confidentiality of Alcohol and Drug Abuse Patient Records regulations: The Federal rules restrict any use of the information to criminally investigate or prosecute any alcohol or drug abuse patient.[facility] HospitalIn the event this information is protected by the Federal Confidentiality of Alcohol and Drug Abuse Patient Records regulations: The Federal rules restrict any use of the information to criminally investigate or prosecute any alcohol or drug abuse patient.[facility] HospitalIn the event this information is protected by the Federal Confidentiality of Alcohol and Drug Abuse Patient Records regulations: The Federal rules restrict any use of the information to criminally investigate or prosecute any alcohol or drug abuse patient.[facility] HospitalIn the event this information is protected by the Federal Confidentiality of Alcohol and Drug Abuse Patient Records regulations: The Federal rules restrict any use of the information to criminally investigate or prosecute any alcohol or drug abuse patient.[facility] HospitalIn the event this information is protected by the Federal Confidentiality of Alcohol and Drug Abuse Patient Records regulations: The Federal rules restrict any use of the information to criminally investigate or prosecute any alcohol or drug abuse patient.[facility] HospitalIn the event this information is protected by the Federal Confidentiality of Alcohol and Drug Abuse Patient Records regulations: The Federal rules restrict any use of the information to criminally investigate or prosecute any alcohol or drug abuse patient.[facility] HospitalIn the event this information is protected by the Federal Confidentiality of Alcohol and Drug Abuse Patient Records regulations: The Federal rules restrict any use of the information to criminally investigate or prosecute any alcohol or drug abuse patient.[facility] HospitalIn the event this information is protected by the Federal Confidentiality of Alcohol and Drug Abuse Patient Records regulations: The Federal rules restrict any use of the information to criminally investigate or prosecute any alcohol or drug abuse patient.[facility] HospitalIn the event this information is protected by the Federal Confidentiality of Alcohol and Drug Abuse Patient Records regulations: The Federal rules restrict any use of the information to criminally investigate or prosecute any alcohol or drug abuse patient.[facility] HospitalIn the event this information is protected by the Federal Confidentiality of Alcohol and Drug Abuse Patient Records regulations: The Federal rules restrict any use of the information to criminally investigate or prosecute any alcohol or drug abuse patient.[facility] HospitalIn the event this information is protected by the Federal Confidentiality of Alcohol and Drug Abuse Patient Records regulations: The Federal rules restrict any use of the information to criminally investigate or prosecute any alcohol or drug abuse patient.[facility] HospitalIn the event this information is protected by the Federal Confidentiality of Alcohol and Drug Abuse Patient Records regulations: The Federal rules restrict any use of the information to criminally investigate or prosecute any alcohol or drug abuse patient.[facility] HospitalIn the event this information is protected by the Federal Confidentiality of Alcohol and Drug Abuse Patient Records regulations: The Federal rules restrict any use of the information to criminally investigate or prosecute any alcohol or drug abuse patient.[facility] HospitalIn the event this information is protected by the Federal Confidentiality of Alcohol and Drug Abuse Patient Records regulations: The Federal rules restrict any use of the information to criminally investigate or prosecute any alcohol or drug abuse patient.[facility] HospitalIn the event this information is protected by the Federal Confidentiality of Alcohol and Drug Abuse Patient Records regulations: The Federal rules restrict any use of the information to criminally investigate or prosecute any alcohol or drug abuse patient.[facility] HospitalIn the event this information is protected by the Federal Confidentiality of Alcohol and Drug Abuse Patient Records regulations: The Federal rules restrict any use of the information to criminally investigate or prosecute any alcohol or drug abuse patient.[facility] HospitalIn the event this information is protected by the Federal Confidentiality of Alcohol and Drug Abuse Patient Records regulations: The Federal rules restrict any use of the information to criminally investigate or prosecute any alcohol or drug abuse patient.[facility] HospitalIn the event this information is protected by the Federal Confidentiality of Alcohol and Drug Abuse Patient Records regulations: The Federal rules restrict any use of the information to criminally investigate or prosecute any alcohol or drug abuse patient.[facility] HospitalIn the event this information is protected by the Federal Confidentiality of Alcohol and Drug Abuse Patient Records regulations: The Federal rules restrict any use of the information to criminally investigate or prosecute any alcohol or drug abuse patient.[facility] HospitalIn the event this information is protected by the Federal Confidentiality of Alcohol and Drug Abuse Patient Records regulations: The Federal rules restrict any use of the information to criminally investigate or prosecute any alcohol or drug abuse patient.[facility] HospitalIn the event this information is protected by the Federal Confidentiality of Alcohol and Drug Abuse Patient Records regulations: The Federal rules restrict any use of the information to criminally investigate or prosecute any alcohol or drug abuse patient.[facility] HospitalIn the event this information is protected by the Federal Confidentiality of Alcohol and Drug Abuse Patient Records regulations: The Federal rules restrict any use of the information to criminally investigate or prosecute any alcohol or drug abuse patient.[facility] HospitalIn the event this information is protected by the Federal Confidentiality of Alcohol and Drug Abuse Patient Records regulations: The Federal rules restrict any use of the information to criminally investigate or prosecute any alcohol or drug abuse patient.[facility] HospitalIn the event this information is protected by the Federal Confidentiality of Alcohol and Drug Abuse Patient Records regulations: The Federal rules restrict any use of the information to criminally investigate or prosecute any alcohol or drug abuse patient.[facility] HospitalIn the event this information is protected by the Federal Confidentiality of Alcohol and Drug Abuse Patient Records regulations: The Federal rules restrict any use of the information to criminally investigate or prosecute any alcohol or drug abuse patient.[facility] HospitalIn the event this information is protected by the Federal Confidentiality of Alcohol and Drug Abuse Patient Records regulations: The Federal rules restrict any use of the information to criminally investigate or prosecute any alcohol or drug abuse patient.[facility] HospitalIn the event this information is protected by the Federal Confidentiality of Alcohol and Drug Abuse Patient Records regulations: The Federal rules restrict any use of the information to criminally investigate or prosecute any alcohol or drug abuse patient.[facility] HospitalIn the event this information is protected by the Federal Confidentiality of Alcohol and Drug Abuse Patient Records regulations: The Federal rules restrict any use of the information to criminally investigate or prosecute any alcohol or drug abuse patient.[facility] HospitalIn the event this information is protected by the Federal Confidentiality of Alcohol and Drug Abuse Patient Records regulations: The Federal rules restrict any use of the information to criminally investigate or prosecute any alcohol or drug abuse patient.[facility] HospitalIn the event this information is protected by the Federal Confidentiality of Alcohol and Drug Abuse Patient Records regulations: The Federal rules restrict any use of the information to criminally investigate or prosecute any alcohol or drug abuse patient.[facility] HospitalIn the event this information is protected by the Federal Confidentiality of Alcohol and Drug Abuse Patient Records regulations: The Federal rules restrict any use of the information to criminally investigate or prosecute any alcohol or drug abuse patient.[facility] HospitalIn the event this information is protected by the Federal Confidentiality of Alcohol and Drug Abuse Patient Records regulations: The Federal rules restrict any use of the information to criminally investigate or prosecute any alcohol or drug abuse patient.[facility] HospitalIn the event this information is protected by the Federal Confidentiality of Alcohol and Drug Abuse Patient Records regulations: The Federal rules restrict any use of the information to criminally investigate or prosecute any alcohol or drug abuse patient.[facility] HospitalIn the event this information is protected by the Federal Confidentiality of Alcohol and Drug Abuse Patient Records regulations: The Federal rules restrict any use of the information to criminally investigate or prosecute any alcohol or drug abuse patient.[facility] HospitalIn the event this information is protected by the Federal Confidentiality of Alcohol and Drug Abuse Patient Records regulations: The Federal rules restrict any use of the information to criminally investigate or prosecute any alcohol or drug abuse patient.[facility] HospitalIn the event this information is protected by the Federal Confidentiality of Alcohol and Drug Abuse Patient Records regulations: The Federal rules restrict any use of the information to criminally investigate or prosecute any alcohol or drug abuse patient.[facility] HospitalIn the event this information is protected by the Federal Confidentiality of Alcohol and Drug Abuse Patient Records regulations: The Federal rules restrict any use of the information to criminally investigate or prosecute any alcohol or drug abuse patient.[facility] HospitalIn the event this information is protected by the Federal Confidentiality of Alcohol and Drug Abuse Patient Records regulations: The Federal rules restrict any use of the information to criminally investigate or prosecute any alcohol or drug abuse patient.[facility] HospitalIn the event this information is protected by the Federal Confidentiality of Alcohol and Drug Abuse Patient Records regulations: The Federal rules restrict any use of the information to criminally investigate or prosecute any alcohol or drug abuse patient.[facility] HospitalIn the event this information is protected by the Federal Confidentiality of Alcohol and Drug Abuse Patient Records regulations: The Federal rules restrict any use of the information to criminally investigate or prosecute any alcohol or drug abuse patient.[facility] HospitalIn the event this information is protected by the Federal Confidentiality of Alcohol and Drug Abuse Patient Records regulations: The Federal rules restrict any use of the information to criminally investigate or prosecute any alcohol or drug abuse patient.[facility] HospitalIn the event this information is protected by the Federal Confidentiality of Alcohol and Drug Abuse Patient Records regulations: The Federal rules restrict any use of the information to criminally investigate or prosecute any alcohol or drug abuse patient.[facility] HospitalIn the event this information is protected by the Federal Confidentiality of Alcohol and Drug Abuse Patient Records regulations: The Federal rules restrict any use of the information to criminally investigate or prosecute any alcohol or drug abuse patient.[facility] HospitalIn the event this information is protected by the Federal Confidentiality of Alcohol and Drug Abuse Patient Records regulations: The Federal rules restrict any use of the information to criminally investigate or prosecute any alcohol or drug abuse patient.[facility] HospitalIn the event this information is protected by the Federal Confidentiality of Alcohol and Drug Abuse Patient Records regulations: The Federal rules restrict any use of the information to criminally investigate or prosecute any alcohol or drug abuse patient.[facility] HospitalIn the event this information is protected by the Federal Confidentiality of Alcohol and Drug Abuse Patient Records regulations: The Federal rules restrict any use of the information to criminally investigate or prosecute any alcohol or drug abuse patient.[facility] HospitalIn the event this information is protected by the Federal Confidentiality of Alcohol and Drug Abuse Patient Records regulations: The Federal rules restrict any use of the information to criminally investigate or prosecute any alcohol or drug abuse patient.[facility] HospitalIn the event this information is protected by the Federal Confidentiality of Alcohol and Drug Abuse Patient Records regulations: The Federal rules restrict any use of the information to criminally investigate or prosecute any alcohol or drug abuse patient.[facility] HospitalIn the event this information is protected by the Federal Confidentiality of Alcohol and Drug Abuse Patient Records regulations: The Federal rules restrict any use of the information to criminally investigate or prosecute any alcohol or drug abuse patient.[facility] HospitalIn the event this information is protected by the Federal Confidentiality of Alcohol and Drug Abuse Patient Records regulations: The Federal rules restrict any use of the information to criminally investigate or prosecute any alcohol or drug abuse patient.[facility] HospitalIn the event this information is protected by the Federal Confidentiality of Alcohol and Drug Abuse Patient Records regulations: The Federal rules restrict any use of the information to criminally investigate or prosecute any alcohol or drug abuse patient.[facility] HospitalIn the event this information is protected by the Federal Confidentiality of Alcohol and Drug Abuse Patient Records regulations: The Federal rules restrict any use of the information to criminally investigate or prosecute any alcohol or drug abuse patient.[facility] HospitalIn the event this information is protected by the Federal Confidentiality of Alcohol and Drug Abuse Patient Records regulations: The Federal rules restrict any use of the information to criminally investigate or prosecute any alcohol or drug abuse patient.[facility] HospitalIn the event this information is protected by the Federal Confidentiality of Alcohol and Drug Abuse Patient Records regulations: The Federal rules restrict any use of the information to criminally investigate or prosecute any alcohol or drug abuse patient.[facility] HospitalIn the event this information is protected by the Federal Confidentiality of Alcohol and Drug Abuse Patient Records regulations: The Federal rules restrict any use of the information to criminally investigate or prosecute any alcohol or drug abuse patient.[facility] HospitalIn the event this information is protected by the Federal Confidentiality of Alcohol and Drug Abuse Patient Records regulations: The Federal rules restrict any use of the information to criminally investigate or prosecute any alcohol or drug abuse patient.[facility] HospitalIn the event this information is protected by the Federal Confidentiality of Alcohol and Drug Abuse Patient Records regulations: The Federal rules restrict any use of the information to criminally investigate or prosecute any alcohol or drug abuse patient.[facility] HospitalIn the event this information is protected by the Federal Confidentiality of Alcohol and Drug Abuse Patient Records regulations: The Federal rules restrict any use of the information to criminally investigate or prosecute any alcohol or drug abuse patient.[facility] HospitalIn the event this information is protected by the Federal Confidentiality of Alcohol and Drug Abuse Patient Records regulations: The Federal rules restrict any use of the information to criminally investigate or prosecute any alcohol or drug abuse patient.[facility] HospitalIn the event this information is protected by the Federal Confidentiality of Alcohol and Drug Abuse Patient Records regulations: The Federal rules restrict any use of the information to criminally investigate or prosecute any alcohol or drug abuse patient.[facility] HospitalIn the event this information is protected by the Federal Confidentiality of Alcohol and Drug Abuse Patient Records regulations: The Federal rules restrict any use of the information to criminally investigate or prosecute any alcohol or drug abuse patient.[facility] HospitalIn the event this information is protected by the Federal Confidentiality of Alcohol and Drug Abuse Patient Records regulations: The Federal rules restrict any use of the information to criminally investigate or prosecute any alcohol or drug abuse patient.[facility] HospitalIn the event this information is protected by the Federal Confidentiality of Alcohol and Drug Abuse Patient Records regulations: The Federal rules restrict any use of the information to criminally investigate or prosecute any alcohol or drug abuse patient.[facility] HospitalIn the event this information is protected by the Federal Confidentiality of Alcohol and Drug Abuse Patient Records regulations: The Federal rules restrict any use of the information to criminally investigate or prosecute any alcohol or drug abuse patient.[facility] HospitalIn the event this information is protected by the Federal Confidentiality of Alcohol and Drug Abuse Patient Records regulations: The Federal rules restrict any use of the information to criminally investigate or prosecute any alcohol or drug abuse patient.[facility] HospitalIn the event this information is protected by the Federal Confidentiality of Alcohol and Drug Abuse Patient Records regulations: The Federal rules restrict any use of the information to criminally investigate or prosecute any alcohol or drug abuse patient.[facility] HospitalIn the event this information is protected by the Federal Confidentiality of Alcohol and Drug Abuse Patient Records regulations: The Federal rules restrict any use of the information to criminally investigate or prosecute any alcohol or drug abuse patient.[facility] HospitalIn the event this information is protected by the Federal Confidentiality of Alcohol and Drug Abuse Patient Records regulations: The Federal rules restrict any use of the information to criminally investigate or prosecute any alcohol or drug abuse patient.[facility] HospitalIn the event this information is protected by the Federal Confidentiality of Alcohol and Drug Abuse Patient Records regulations: The Federal rules restrict any use of the information to criminally investigate or prosecute any alcohol or drug abuse patient.[facility] HospitalIn the event this information is protected by the Federal Confidentiality of Alcohol and Drug Abuse Patient Records regulations: The Federal rules restrict any use of the information to criminally investigate or prosecute any alcohol or drug abuse patient.[facility] HospitalIn the event this information is protected by the Federal Confidentiality of Alcohol and Drug Abuse Patient Records regulations: The Federal rules restrict any use of the information to criminally investigate or prosecute any alcohol or drug abuse patient.[facility] HospitalIn the event this information is protected by the Federal Confidentiality of Alcohol and Drug Abuse Patient Records regulations: The Federal rules restrict any use of the information to criminally investigate or prosecute any alcohol or drug abuse patient.[facility] HospitalIn the event this information is protected by the Federal Confidentiality of Alcohol and Drug Abuse Patient Records regulations: The Federal rules restrict any use of the information to criminally investigate or prosecute any alcohol or drug abuse patient.[facility] HospitalIn the event this information is protected by the Federal Confidentiality of Alcohol and Drug Abuse Patient Records regulations: The Federal rules restrict any use of the information to criminally investigate or prosecute any alcohol or drug abuse patient.[facility] HospitalIn the event this information is protected by the Federal Confidentiality of Alcohol and Drug Abuse Patient Records regulations: The Federal rules restrict any use of the information to criminally investigate or prosecute any alcohol or drug abuse patient.[facility] HospitalIn the event this information is protected by the Federal Confidentiality of Alcohol and Drug Abuse Patient Records regulations: The Federal rules restrict any use of the information to criminally investigate or prosecute any alcohol or drug abuse patient.[facility] HospitalIn the event this information is protected by the Federal Confidentiality of Alcohol and Drug Abuse Patient Records regulations: The Federal rules restrict any use of the information to criminally investigate or prosecute any alcohol or drug abuse patient.[facility] HospitalIn the event this information is protected by the Federal Confidentiality of Alcohol and Drug Abuse Patient Records regulations: The Federal rules restrict any use of the information to criminally investigate or prosecute any alcohol or drug abuse patient.[facility] HospitalIn the event this information is protected by the Federal Confidentiality of Alcohol and Drug Abuse Patient Records regulations: The Federal rules restrict any use of the information to criminally investigate or prosecute any alcohol or drug abuse patient.[facility] HospitalIn the event this information is protected by the Federal Confidentiality of Alcohol and Drug Abuse Patient Records regulations: The Federal rules restrict any use of the information to criminally investigate or prosecute any alcohol or drug abuse patient.[facility] HospitalIn the event this information is protected by the Federal Confidentiality of Alcohol and Drug Abuse Patient Records regulations: The Federal rules restrict any use of the information to criminally investigate or prosecute any alcohol or drug abuse patient.[facility] HospitalIn the event this information is protected by the Federal Confidentiality of Alcohol and Drug Abuse Patient Records regulations: The Federal rules restrict any use of the information to criminally investigate or prosecute any alcohol or drug abuse patient.[facility] HospitalIn the event this information is protected by the Federal Confidentiality of Alcohol and Drug Abuse Patient Records regulations: The Federal rules restrict any use of the information to criminally investigate or prosecute any alcohol or drug abuse patient.[facility] HospitalIn the event this information is protected by the Federal Confidentiality of Alcohol and Drug Abuse Patient Records regulations: The Federal rules restrict any use of the information to criminally investigate or prosecute any alcohol or drug abuse patient.[facility] Reason for Visit (unrecogniz ed section [...] HNI PATIENT Flash Pearl MD [address] [place] [address] [place] [address] [place] [address] Referral ID Status Reason Start Date Expiration Date Visits Re quested Visits Authorized [id number] Closed 07/09/2021 07/27/2021 99 99 Specialty Diagnoses [...] RETACRIT NON-ESRD USE (RETACRIT) Asher Hummel MD [address] [place] [address] [place] [address] [address] Treat [address] [place] [address] Referral ID Status Reason Start Date Expiration Date V isits Requested Visits Authorized [id number] Authorized 08/06/2021 02/01/2022 37 37 Reason Comments myeldysplastic syndrome followup Specialty Diagnoses / Procedures Referred By Contac t Referred To Contact Diagnoses Myelodysplastic syndrome (HCC) Procedures AZACITIDINE INJECTION PALONOSETRON HCL Asher Hummel MD [address] [place] [address] [place] [address] Sam Treat [address] [place] [address] Referral ID Status Reason Start Date Expiration Date V isits Requested Visits Authorized [id number] Authorized 06/28/2021 07/27/2022 99 99 Reason Comments [...] Expiration Date V isits Requested Visits Authorized [id number] Waiting for Response 08/06/2021 02/01/2022 37 37 Reason Comments Transfusion Reason Comments Care Coordination Results Reason Comments Care Coordination Lab results Referral ID Status Reason Start Date Expiration Date V isits Requested Visits Authorized [id number] Authorized 02/25/2022 04/25/2022 42 42 Reason Comments Results Reason Comments Care Coordination Referral Reason Comments Care Coordination Appointment Reason Comments Results CBC Reason Comments Patient Update Reason Comments Consult Specialty Diagnoses / Procedures Referred By Contac t Referred To Contact Diagnoses Myelodysplastic syndrome (HCC) Procedures CONSULT TO HEMATOLOGY/ONCOLOGY OFFICE/OUTPATIENT [facility] HIGH MDM 60-74 MINUTES Asher Hummel MD [address] [place] [address] [place] [address] Referral ID Status Reason Start Date Expiration Date V isits Requested Visits Authorized [id number] Closed PCP Requested Referral 03/15/2022 03/15/2023 1 [...] RETACRIT NON-ESRD USE (RETACRIT) Asher Hummel MD [address] [place] [address] [place] [address] [address] [place] [address] Referral ID Status Reason Start Date Expiration Date V isits Requested Visits Authorized [id number] Authorized 04/29/2022 06/27/2022 99 99 Reason Comments Myelodysplastic Syndrome 1 week follow u p Reason Comments Care Coordination Treatment Planning Reason Comments Care Coordination Antiemetics Reason Comments Care Coordination C1D1 Post Treatment Call Reason Comments MDS Follow up Reason Comments Prostate Cancer Followup Referral ID Status Reason Start Date Expiration Date V isits Requested Visits Authorized [id number] Authorized 04/29/2022 06/27/2022 15 15 Reason Comments Critical Results Referral ID Status Reason Start Date Expiration Date V isits Requested Visits Authorized [id number] Authorized 04/29/2022 06/27/2022 19 19 Reason Comments MDS 1 week follow up Referral ID Status Reason Start Date Expiration Date V isits Requested Visits Authorized [id number] Authorized 04/29/2022 12/24/2022 45 45 Reason Comments Care Coordination Oxygen Question Reason Comments Established Patient Reason Comments Retacrit Injection Reason Comments MDS OTV 1 week Reason Comments Care Coordination Order Request Reason Comments Care Coordination Transfusion Question Reason Comments Treatment Planning Reason Comments Care Coordination Medication Authoriza tion Referral ID Status Reason Start Date Expiration Date Visits Re quested Visits Authorized [id number] Closed 04/29/2022 12/24/2022 45 45 Reason Comments mds Treatment visit Reason Comments Care Coordination CBC Results; Transfu bravo Reason Comments Care Coordination Transfusion Orders Reason Comments Care Coordination Pt Update Reason Comments Care Coordination Hospice/Treatment Up date Reason Comments MDS (myelodysplastic syndrome) 3 week fo llow up Reason Comments Refill Request Care Teams (unrecognized sec tion and content) Plant Supervisor Relationship Specialty Start Date End Date Flash Pearl MD [address] [place] [address] PCP - General 11/12/00 Sheng Gomez MD [address] [place] [address] [facility] 09/20/20 Asher Hummel MD [address] [facility] [address] Physician Hematology/Oncology 06/29/21 Wilfred Martinez, LOG CHIPPER.PROJECT DEVELOPMENT LEADER [address] [facility] [place] [address] Nurse Practitioner Hematology/Oncology 06/29/21 Angle Kamara, MONET [address] [facility] [place] [address] Specialty Pastoral Worker Hematology/Oncology 06/29/21 Plant Supervisor Relationship Specialty Start Date End Date Flash Pearl MD [address] [place] [address] PCP - General 11/12/00 Sheng Gomez MD [address] [place] [address] [facility] 09/20/20 Asher Hummel MD [address] [facility] [place] [address] Physician Hematology/Oncology 06/29/21 Wilfred Martinez, LOG CHIPPER.PROJECT DEVELOPMENT LEADER [address] [facility] [place] [address] Nurse Practitioner Hematology/Oncology 06/29/21 Angle Kamara, RN [address] [facility] [place] [address] Specialty Pastoral Worker Hematology/Oncology 06/29/21 Plant Supervisor Relationship Specialty Start Date End Date Flash Pearl MD [address] [place] [address] PCP - General 11/12/00 Sheng Gomez MD [address] [place] [address] [facility] 09/20/20 Asher Hummel MD [address] [facility] [place] [address] Physician Hematology/Oncology 06/29/21 Wilfred Martinez, LOG CHIPPER.PROJECT DEVELOPMENT LEADER [address] [facility] [place] [address] Nurse Practitioner Hematology/Oncology 06/29/21 Angle Kamara, RN [address] [facility] [place] [address] Specialty Pastoral Worker Hematology/Oncology 06/29/21 Plant Supervisor Relationship Specialty Start Date End Date Flash Pearl MD [address] [place] [address] PCP - General 11/12/00 Sheng Gomez MD [address] [place] [address] [facility] 09/20/20 Asher Hummel MD [address] [facility] [place] [address] Physician Hematology/Oncology 06/29/21 Wilfred Martinez, LOG CHIPPER.PROJECT DEVELOPMENT LEADER [address] [facility] [place] [address] Nurse Practitioner Hematology/Oncology 06/29/21 Angle Kamara, MONET [address] [facility] [place] [address] Specialty Pastoral Worker Hematology/Oncology 06/29/21 Plant Supervisor Relationship Specialty Start Date End Date Flash Pearl MD [address] [place] [address] PCP - General 11/12/00 Sheng Gomez MD [address] [place] [address] [facility] 09/20/20 Asher Hummel MD [address] [facility] [place] [address] Physician Hematology/Oncology 06/29/21 Wilfred Martinez, LOG CHIPPER.PROJECT DEVELOPMENT LEADER [address] [facility] [place] [address] Nurse Practitioner Hematology/Oncology 06/29/21 Angle Kamara, MONET [address] [facility] [place] [address] Specialty Pastoral Worker Hematology/Oncology 06/29/21 Plant Supervisor Relationship Specialty Start Date End Date Flash Pearl MD [address] [place] [address] PCP - General 11/12/00 Sheng Gomez MD [address] [place] [address] [facility] 09/20/20 Asher Hummel MD [address] [facility] [address] Physician Hematology/Oncology 06/29/21 Wilfred Martinez, LOG CHIPPER.PROJECT DEVELOPMENT LEADER [address] [facility] [place] [address] Nurse Practitioner Hematology/Oncology 06/29/21 Angle Kamara, MONET [address] [facility] [place] [address] Specialty Pastoral Worker Hematology/Oncology 06/29/21 Plant Supervisor Relationship Specialty Start Date End Date Flash Pearl MD [address] [place] [address] PCP - General 11/12/00 Sheng Gomez MD [address] [place] [address] [facility] 09/20/20 Asher Hummel MD [address] [facility] [address] Physician Hematology/Oncology 06/29/21 Wilfred Martinez, LOG CHIPPER.PROJECT DEVELOPMENT LEADER [address] [facility] [place] [address] Nurse Practitioner Hematology/Oncology 06/29/21 Angle Kamara, MONET [address] [facility] [place] [address] Specialty Pastoral Worker Hematology/Oncology 06/29/21 Plant Supervisor Relationship Specialty Start Date End Date Flash Pearl MD [address] [place] [address] PCP - General 11/12/00 Sheng Gomez MD [address] [place] [address] [facility] 09/20/20 Asher Hummel MD [address] [facility] [place] [address] Physician Hematology/Oncology 06/29/21 Wilfred Martinez, LOG CHIPPER.PROJECT DEVELOPMENT LEADER [address] [facility] [place] [address] Nurse Practitioner Hematology/Oncology 06/29/21 Angle Kamara, MONET [address] [facility] [place] [address] Specialty Pastoral Worker Hematology/Oncology 06/29/21 Plant Supervisor Relationship Specialty Start Date End Date Flash Pearl MD [address] [place] [address] PCP - General 11/12/00 Sheng Gomez MD [address] [place] [address] [facility] 09/20/20 Asher Hummel MD [address] [facility] [place] [address] Physician Hematology/Oncology 06/29/21 Wilfred Martinez, LOG CHIPPER.PROJECT DEVELOPMENT LEADER [address] [facility] [place] [address] Nurse Practitioner Hematology/Oncology 06/29/21 Angle Kamara, MONET [address] [facility] [place] [address] Specialty Pastoral Worker Hematology/Oncology 06/29/21 Plant Supervisor Relationship Specialty Start Date End Date Flash Pearl MD [address] [place] [address] PCP - General 11/12/00 Sheng Gomez MD [address] [place] [address] [facility] 09/20/20 Asher Hummel MD [address] [facility] [place] [address] Physician Hematology/Oncology 06/29/21 Wilfred Martinez, LOG CHIPPER.PROJECT DEVELOPMENT LEADER [address] [facility] [place] [address] Nurse Practitioner Hematology/Oncology 06/29/21 Angle Kamara, RN [address] [facility] [place] [address] Specialty Pastoral Worker Hematology/Oncology 06/29/21 Plant Supervisor Relationship Specialty Start Date End Date Flash Pearl MD [address] [place] [address] PCP - General 11/12/00 Sheng Gomez MD [address] [place] [address] [facility] 09/20/20 Asher Hummel MD [address] [facility] [place] [address] Physician Hematology/Oncology 06/29/21 Wilfred Martinez, LOG CHIPPER.PROJECT DEVELOPMENT LEADER [address] [facility] [place] [address] Nurse Practitioner Hematology/Oncology 06/29/21 Angle Kamara, MONET [address] [facility] [place] [address] Specialty Pastoral Worker Hematology/Oncology 06/29/21 Plant Supervisor Relationship Specialty Start Date End Date Flash Pearl MD [address] [place] [address] PCP - General 11/12/00 Sheng Gomez MD [address] [place] [address] [facility] 09/20/20 Asher Hummel MD [address] [facility] [place] [address] Physician Hematology/Oncology 06/29/21 Wilfred Martinez, LOG CHIPPER.PROJECT DEVELOPMENT LEADER [address] [facility] [place] [address] Nurse Practitioner Hematology/Oncology 06/29/21 Angle Kamara, MONET [address] [facility] [place] [address] Specialty Pastoral Worker Hematology/Oncology 06/29/21 Plant Supervisor Relationship Specialty Start Date End Date Flash Pearl MD [address] [place] [address] PCP - General 11/12/00 Sheng Gomez MD [address] [place] [address] [facility] 09/20/20 Asher Hummel MD [address] [facility] [place] [address] Physician Hematology/Oncology 06/29/21 Wilfred Martinez, LOG CHIPPER.PROJECT DEVELOPMENT LEADER [address] [facility] [place] [address] Nurse Practitioner Hematology/Oncology 06/29/21 Angle Kamara, MONET [address] [facility] [place] [address] Specialty Pastoral Worker Hematology/Oncology 06/29/21 Plant Supervisor Relationship Specialty Start Date End Date Flash Pearl MD [address] [place] [address] PCP - General 11/12/00 Sheng Gomez MD [address] [place] [address] [facility] 09/20/20 Asher Hummel MD [address] [facility] [place] [address] Physician Hematology/Oncology 06/29/21 Wilfred Martinez, LOG CHIPPER.PROJECT DEVELOPMENT LEADER [address] [facility] [place] [address] Nurse Practitioner Hematology/Oncology 06/29/21 Angle Kamara, MONET [address] [facility] [place] [address] Specialty Pastoral Worker Hematology/Oncology 06/29/21 Plant Supervisor Relationship Specialty Start Date End Date Flash Pearl MD [address] [place] [address] PCP - General 11/12/00 Sheng Gomez MD [address] [place] [address] [facility] 09/20/20 Asher Hummel MD [address] [facility] [place] [address] Physician Hematology/Oncology 06/29/21 Wilfred Martinez, LOG CHIPPER.PROJECT DEVELOPMENT LEADER [address] [facility] [place] [address] Nurse Practitioner Hematology/Oncology 06/29/21 Angle Kamara, MONET [address] [facility] [place] [address] Specialty Pastoral Worker Hematology/Oncology 06/29/21 Plant Supervisor Relationship Specialty Start Date End Date Flash Pearl MD [address] [place] [address] PCP - General 11/12/00 Sheng Gomez MD [address] [place] [address] [facility] 09/20/20 Asher Hummel MD [address] [facility] [address] Physician Hematology/Oncology 06/29/21 Wilfred Martinez, LOG CHIPPER.PROJECT DEVELOPMENT LEADER [address] [facility] [place] [address] Nurse Practitioner Hematology/Oncology 06/29/21 Angle Kamara, MONET [address] [facility] [place] [address] Specialty Pastoral Worker Hematology/Oncology 06/29/21 Plant Supervisor Relationship Specialty Start Date End Date Flash Pearl MD [address] [place] [address] PCP - General 11/12/00 Sheng Gomez MD [address] [place] [address] [facility] 09/20/20 Asher Hummel MD [address] [facility] [place] [address] Physician Hematology/Oncology 06/29/21 Wilfred Martinez, LOG CHIPPER.PROJECT DEVELOPMENT LEADER [address] [facility] [place] [address] Nurse Practitioner Hematology/Oncology 06/29/21 Angle Kamara, MONET [address] [facility] [place] [address] Specialty Pastoral Worker Hematology/Oncology 06/29/21 Plant Supervisor Relationship Specialty Start Date End Date Flash Pearl MD [address] [place] [address] PCP - General 11/12/00 Sheng Gomez MD [address] [place] [address] [facility] 09/20/20 Asher Hummel MD [address] [facility] [address] Physician Hematology/Oncology 06/29/21 Wilfred Martinez, LOG CHIPPER.PROJECT DEVELOPMENT LEADER [address] [facility] [place] [address] Nurse Practitioner Hematology/Oncology 06/29/21 Angle Kamara, RN [address] [facility] [place] [address] Specialty Pastoral Worker Hematology/Oncology 06/29/21 Plant Supervisor Relationship Specialty Start Date End Date Flash Pearl MD [address] [place] [address] PCP - General 11/12/00 Sheng Gomez MD [address] [place] [address] [facility] 09/20/20 Asher Hummel MD [address] [facility] [address] Physician Hematology/Oncology 06/29/21 Wilfred Martinez, LOG CHIPPER.PROJECT DEVELOPMENT LEADER [address] [facility] [place] [address] Nurse Practitioner Hematology/Oncology 06/29/21 Angle Kamara, MONET [address] [facility] [place] [address] Specialty Pastoral Worker Hematology/Oncology 06/29/21 Plant Supervisor Relationship Specialty Start Date End Date Flash Pearl MD [address] [place] [address] PCP - General 11/12/00 Sheng Gomez MD [address] [place] [address] [facility] 09/20/20 Asher Hummel MD [address] [facility] [place] [address] Physician Hematology/Oncology 06/29/21 Wilfred Martinez, LOG CHIPPER.PROJECT DEVELOPMENT LEADER [address] [facility] [address] Nurse Practitioner Hematology/Oncology 06/29/21 Angle Kamara, MONET [address] [facility] [place] [address] Specialty Pastoral Worker Hematology/Oncology 06/29/21 Plant Supervisor Relationship Specialty Start Date End Date Flash Pearl MD [address] [place] [address] PCP - General 11/12/00 Sheng Gomez MD [address] [place] [address] [facility] 09/20/20 Asher Hummel MD [address] [facility] [place] [address] Physician Hematology/Oncology 06/29/21 Wilfred Martinez, LOG CHIPPER.PROJECT DEVELOPMENT LEADER [address] [facility] [place] [address] Nurse Practitioner Hematology/Oncology 06/29/21 Angle Kamara, RN [address] [facility] [place] [address] Specialty Pastoral Worker Hematology/Oncology 06/29/21 Plant Supervisor Relationship Specialty Start Date End Date Flash Pearl MD [address] [place] [address] PCP - General 11/12/00 Sheng Gomez MD [address] [place] [address] [facility] 09/20/20 Asher Hummel MD [address] [facility] [address] Physician Hematology/Oncology 06/29/21 Wilfred Martinez, LOG CHIPPER.PROJECT DEVELOPMENT LEADER [address] [facility] [place] [address] Nurse Practitioner Hematology/Oncology 06/29/21 Angle Kamara, MONET [address] [facility] [place] [address] Specialty Pastoral Worker Hematology/Oncology 06/29/21 Plant Supervisor Relationship Specialty Start Date End Date Flash Pearl MD [address] [place] [address] PCP - General 11/12/00 Sheng Gomez MD [address] [place] [address] [facility] 09/20/20 Asher Hummel MD [address] [facility] [address] Physician Hematology/Oncology 06/29/21 Wilfred Martinez, LOG CHIPPER.PROJECT DEVELOPMENT LEADER [address] [facility] [place] [address] Nurse Practitioner Hematology/Oncology 06/29/21 Angle Kamara, MONET [address] [facility] [place] [address] Specialty Pastoral Worker Hematology/Oncology 06/29/21 Plant Supervisor Relationship Specialty Start Date End Date Flash Pearl MD [address] [place] [address] PCP - General 11/12/00 Sheng Gomez MD [address] [place] [address] [facility] 09/20/20 Asher Hummel MD [address] [facility] [place] [address] Physician Hematology/Oncology 06/29/21 Wilfred Martinez, LOG CHIPPER.PROJECT DEVELOPMENT LEADER [address] [facility] [place] [address] Nurse Practitioner Hematology/Oncology 06/29/21 Angle Kamara, MONET [address] [facility] [place] [address] Specialty Pastoral Worker Hematology/Oncology 06/29/21 Plant Supervisor Relationship Specialty Start Date End Date Flash Pearl MD [address] [place] [address] PCP - General 11/12/00 Sheng Gomez MD [address] [place] [address] [facility] 09/20/20 Asher Hummel MD [address] [facility] [place] [address] Physician Hematology/Oncology 06/29/21 Wilfred Martinez, LOG CHIPPER.PROJECT DEVELOPMENT LEADER [address] [facility] [address] Nurse Practitioner Hematology/Oncology 06/29/21 Angle Kamara, MONET [address] [facility] [place] [address] Specialty Pastoral Worker Hematology/Oncology 06/29/21 Plant Supervisor Relationship Specialty Start Date End Date Flash Pearl MD [address] [place] [address] PCP - General 11/12/00 Sheng Gomez MD [address] [place] [address] [facility] 09/20/20 Asher Hummel MD [address] [facility] [place] [address] Physician Hematology/Oncology 06/29/21 Wilfred Martinez, LOG CHIPPER.PROJECT DEVELOPMENT LEADER [address] [facility] [place] [address] Nurse Practitioner Hematology/Oncology 06/29/21 Angle Kamara, MONET [address] [facility] [place] [address] Specialty Pastoral Worker Hematology/Oncology 06/29/21 Plant Supervisor Relationship Specialty Start Date End Date Flash Pearl MD [address] [place] [address] PCP - General 11/12/00 Sheng Gomez MD [address] [place] [address] [facility] 09/20/20 Asher Hummel MD [address] [facility] [place] [address] Physician Hematology/Oncology 06/29/21 Wilfred Martinez, LOG CHIPPER.PROJECT DEVELOPMENT LEADER [address] [facility] [place] [address] Nurse Practitioner Hematology/Oncology 06/29/21 Angle Kamara, MONET [address] [facility] [place] [address] Specialty Pastoral Worker Hematology/Oncology 06/29/21 Plant Supervisor Relationship Specialty Start Date End Date Flash Pearl MD [address] [place] [address] PCP - General 11/12/00 Sheng Gomez MD [address] [place] [address] [facility] 09/20/20 Asher Hummel MD [address] [facility] [address] Physician Hematology/Oncology 06/29/21 Wilfred Martinez, LOG CHIPPER.PROJECT DEVELOPMENT LEADER [address] [facility] [place] [address] Nurse Practitioner Hematology/Oncology 06/29/21 Angle Kamara, MONET [address] [facility] [place] [address] Specialty Pastoral Worker Hematology/Oncology 06/29/21 Plant Supervisor Relationship Specialty Start Date End Date Flash Pearl MD [address] [place] [address] PCP - General 11/12/00 Sheng Gomez MD [address] [place] [address] [facility] 09/20/20 Asher Hummel MD [address] [facility] [place] [address] Physician Hematology/Oncology 06/29/21 Wilfred Martinez, LOG CHIPPER.[facility] [address] [facility] [place] [address] Nurse Practitioner Hematology/Oncology 06/29/21 Angle Kamara, RN [address] [facility] [place] [address] Specialty Pastoral Worker Hematology/Oncology 06/29/21 Plant Supervisor Relationship Specialty Start Date End Date Flash Pearl MD [address] [place] [address] PCP - General 11/12/00 Sheng Gomez MD [address] [place] [address] [facility] 09/20/20 Asher Hummel MD [address] [facility] [place] [address] Physician Hematology/Oncology 06/29/21 Wilfred Martinez, LOG CHIPPER.PROJECT DEVELOPMENT LEADER [address] [facility] [place] [address] Nurse Practitioner Hematology/Oncology 06/29/21 Angle Kamara, RN [address] [facility] [place] [address] Specialty Pastoral Worker Hematology/Oncology 06/29/21 Plant Supervisor Relationship Specialty Start Date End Date Flash Pearl MD [address] [place] [address] PCP - General 11/12/00 Sheng Gomez MD [address] [place] [address] [facility] 09/20/20 Asher Hummel MD [address] [facility] [address] Physician Hematology/Oncology 06/29/21 Wilfred Martinez, LOG CHIPPER.PROJECT DEVELOPMENT LEADER [address] [facility] [place] [address] Nurse Practitioner Hematology/Oncology 06/29/21 Angle Kamara, RN [address] [facility] [place] [address] Specialty Pastoral Worker Hematology/Oncology 06/29/21 Plant Supervisor Relationship Specialty Start Date End Date Flash Pearl MD [address] [place] [address] PCP - General 11/12/00 Sheng Gomez MD [address] [place] [address] [facility] 09/20/20 Asher Hummel MD [address] [facility] [address] Physician Hematology/Oncology 06/29/21 Wilfred Martinez, LOG CHIPPER.PROJECT DEVELOPMENT LEADER [address] [facility] [address] Nurse Practitioner Hematology/Oncology 06/29/21 Angle Kamara, MONET [address] [facility] [place] [address] Specialty Pastoral Worker Hematology/Oncology 06/29/21 Plant Supervisor Relationship Specialty Start Date End Date Flash Pearl MD [address] [place] [address] PCP - General 11/12/00 Sheng Gomez MD [address] [place] [address] [facility] 09/20/20 Asher Hummel MD [address] [facility] [address] Physician Hematology/Oncology 06/29/21 Wilfred Martinez, LOG CHIPPER.PROJECT DEVELOPMENT LEADER [address] [facility] [place] [address] Nurse Practitioner Hematology/Oncology 06/29/21 Angle Kamara, RN [address] [facility] [place] [address] Specialty Pastoral Worker Hematology/Oncology 06/29/21 Plant Supervisor Relationship Specialty Start Date End Date Flash Pearl MD [address] [place] [address] PCP - General 11/12/00 Sheng Gomez MD [address] [place] [address] [facility] 09/20/20 Asher Hummel MD [address] [facility] [place] [address] Physician Hematology/Oncology 06/29/21 Wilfred Martinez, LOG CHIPPER.PROJECT DEVELOPMENT LEADER [address] [facility] [place] [address] Nurse Practitioner Hematology/Oncology 06/29/21 Angle Kamara, RN [address] [facility] [place] [address] Specialty Pastoral Worker Hematology/Oncology 06/29/21 Plant Supervisor Relationship Specialty Start Date End Date Flash Pearl MD [address] [place] [address] PCP - General 11/12/00 Sheng Gomez MD [address] [place] [address] [facility] 09/20/20 Asher Hummel MD [address] [facility] [address] Physician Hematology/Oncology 06/29/21 Wilfred Martinez, LOG CHIPPER.PROJECT DEVELOPMENT LEADER [address] [facility] [address] Nurse Practitioner Hematology/Oncology 06/29/21 Angle Kamara, RN [address] [facility] [place] [address] Specialty Pastoral Worker Hematology/Oncology 06/29/21 Plant Supervisor Relationship Specialty Start Date End Date Flash Pearl MD [address] [place] [address] PCP - General 11/12/00 Sheng Gomez MD [address] [place] [address] [facility] 09/20/20 Asher Hummel MD [address] [facility] [address] Physician Hematology/Oncology 06/29/21 Wilfred Martinez, LOG CHIPPER.PROJECT DEVELOPMENT LEADER [address] [facility] [place] [address] Nurse Practitioner Hematology/Oncology 06/29/21 Angle Kamara, MONET [address] [facility] [place] [address] Specialty Pastoral Worker Hematology/Oncology 06/29/21 Plant Supervisor Relationship Specialty Start Date End Date Flash Pearl MD [address] [place] [address] PCP - General 11/12/00 Sheng Gomez MD [address] [place] [address] [facility] 09/20/20 Asher Hummel MD [address] [facility] [address] Physician Hematology/Oncology 06/29/21 Wilfred Martinez, LOG CHIPPER.PROJECT DEVELOPMENT LEADER [address] [facility] [address] Nurse Practitioner Hematology/Oncology 06/29/21 Angle Kamara, RN [address] [facility] [place] [address] Specialty Pastoral Worker Hematology/Oncology 06/29/21 Plant Supervisor Relationship Specialty Start Date End Date Flash Pearl MD [address] [place] [address] PCP - General 11/12/00 Sheng Gomez MD [address] [place] [address] [facility] 09/20/20 Asher Hummel MD [address] [facility] [address] Physician Hematology/Oncology 06/29/21 Wilfred Martinez, LOG CHIPPER.PROJECT DEVELOPMENT LEADER [address] [facility] [address] Nurse Practitioner Hematology/Oncology 06/29/21 Angle Kamara, MONET [address] [facility] [address] Specialty Pastoral Worker Hematology/Oncology 06/29/21 Plant Supervisor Relationship Specialty Start Date End Date Flash Pearl MD [address] [place] [address] PCP - General 11/12/00 Sheng Gomez MD [address] [place] [address] [facility] 09/20/20 Asher Hummel MD [address] [place] [address] Physician Hematology/Oncology 06/29/21 Wilfred Martinez, LOG CHIPPER.PROJECT DEVELOPMENT LEADER [address] [place] [address] Nurse Practitioner Hematology/Oncology 06/29/21 Angle Kamara, MONET [address] [address] Specialty Pastoral Worker Hematology/Oncology 06/29/21 Plant Supervisor Relationship Specialty Start Date End Date Flash Pearl MD [address] [place] [address] PCP - General 11/12/00 Sheng Gomez MD [address] [place] [address] [facility] 09/20/20 Asher Hummel MD [address] [address] Physician Hematology/Oncology 06/29/21 Wilfred Martinez, LOG CHIPPER.PROJECT DEVELOPMENT LEADER [address] [place] [address] Nurse Practitioner Hematology/Oncology 06/29/21 Angle Kamara, MONET [address] [place] [address] Specialty Pastoral Worker Hematology/Oncology 06/29/21 Plant Supervisor Relationship Specialty Start Date End Date Flash Pearl MD [address] [place] [address] PCP - General 11/12/00 Sheng Gomez MD [address] [place] [address] [facility] 09/20/20 Asher Hummel MD [address] [place] [address] Physician Hematology/Oncology 06/29/21 Wilfred Martinez, LOG CHIPPER.PROJECT DEVELOPMENT LEADER [address] [place] [address] Nurse Practitioner Hematology/Oncology 06/29/21 Angle Kamara, RN [address] [place] [address] Specialty Pastoral Worker Hematology/Oncology 06/29/21 Plant Supervisor Relationship Specialty Start Date End Date Flash Pearl MD [address] [place] [address] PCP - General 11/12/00 Sheng Gomez MD [address] [place] [address] [facility] 09/20/20 Asher Hummel MD [address] [place] [address] Physician Hematology/Oncology 06/29/21 Wilfred Martinez, LOG CHIPPER.PROJECT DEVELOPMENT LEADER [address] [place] [address] Nurse Practitioner Hematology/Oncology 06/29/21 Angle Kamara, RN [address] [place] [address] Specialty Pastoral Worker Hematology/Oncology 06/29/21 Plant Supervisor Relationship Specialty Start Date End Date Flash Pearl MD [address] [place] [address] PCP - General 11/12/00 Sheng Gomez MD [address] [place] [address] [facility] 09/20/20 Asher Hummel MD [address] [place] [address] Physician Hematology/Oncology 06/29/21 Wilfred Martinez, LOG CHIPPER.[address] [place] [place] [address] Nurse Practitioner Hematology/Oncology 06/29/21 Angle Kamara, MONET [address] [place] [address] Specialty Pastoral Worker Hematology/Oncology 06/29/21 Plant Supervisor Relationship Specialty Start Date End Date Flash Pearl MD [address] [place] [address] PCP - General 11/12/00 Sheng Gomez MD [address] [place] [address] [facility] 09/20/20 Asher Hummel MD [address] [place] [address] Physician Hematology/Oncology 06/29/21 Wilfred Martinez, LOG CHIPPER.[facility] [address] [place] [address] Nurse Practitioner Hematology/Oncology 06/29/21 Angle Kamara, MONET [address] [place] [address] Specialty Pastoral Worker Hematology/Oncology 06/29/21 Plant Supervisor Relationship Specialty Start Date End Date Flash Pearl MD [address] [place] [address] PCP - General 11/12/00 Sheng Gomez MD [address] [place] [address] [facility] 09/20/20 Asher Hummel MD [address] [place] [address] Physician Hematology/Oncology 06/29/21 Wilfred Martinez, LOG CHIPPER.PROJECT DEVELOPMENT LEADER [address] [place] [address] Nurse Practitioner Hematology/Oncology 06/29/21 Angle Kamara, RN [address] [place] [address] Specialty Pastoral Worker Hematology/Oncology 06/29/21 Plant Supervisor Relationship Specialty Start Date End Date Flash Pearl MD [address] [place] [address] PCP - General 11/12/00 Sheng Gomez MD [address] [place] [address] [facility] 09/20/20 Asher Hummel MD [address] [place] [address] Physician Hematology/Oncology 06/29/21 Wilfred Martinez, LOG CHIPPER.PROJECT DEVELOPMENT LEADER [address] [place] [address] Nurse Practitioner Hematology/Oncology 06/29/21 Angle Kamara, RN [address] [place] [address] Specialty Pastoral Worker Hematology/Oncology 06/29/21 Plant Supervisor Relationship Specialty Start Date End Date Flash Pearl MD [address] [place] [address] PCP - General 11/12/00 Sheng Gomez MD [address] [place] [address] [facility] 09/20/20 Asher Hummel MD [address] [place] [address] Physician Hematology/Oncology 06/29/21 Wilfred Martinez, LOG CHIPPER.PROJECT DEVELOPMENT LEADER [address] [place] [address] Nurse Practitioner Hematology/Oncology 06/29/21 Angle Kamara, MONET [address] [place] [address] Specialty Pastoral Worker Hematology/Oncology 06/29/21 Plant Supervisor Relationship Specialty Start Date End Date Flash Pearl MD [address] [place] [address] PCP - General 11/12/00 Sheng Gomez MD [address] [place] [address] [facility] 09/20/20 Asher Hummel MD [address] [place] [address] Physician Hematology/Oncology 06/29/21 Wilfred Martinez, LOG CHIPPER.PROJECT DEVELOPMENT LEADER [address] [place] [address] Nurse Practitioner Hematology/Oncology 06/29/21 Angle Kamara, RN [address] [place] [address] Specialty Pastoral Worker Hematology/Oncology 06/29/21 Plant Supervisor Relationship Specialty Start Date End Date Flash Pearl MD [address] [place] [address] PCP - General 11/12/00 Sheng Gomez MD [address] [place] [address] [facility] 09/20/20 Asher Hummel MD [address] [place] [address] Physician Hematology/Oncology 06/29/21 Wilfred Martinez, LOG CHIPPER.PROJECT DEVELOPMENT LEADER [address] [place] [address] Nurse Practitioner Hematology/Oncology 06/29/21 Angle Kamara, RN [address] [place] [address] Specialty Pastoral Worker Hematology/Oncology 06/29/21 Plant Supervisor Relationship Specialty Start Date End Date Flash Pearl MD [address] [place] [address] PCP - General 11/12/00 Sheng Gomez MD [address] [place] [address] [facility] 09/20/20 Asher Hummel MD [address] [place] [address] Physician Hematology/Oncology 06/29/21 Wilfred Martinez, LOG CHIPPER.PROJECT DEVELOPMENT LEADER [address] [place] [address] Nurse Practitioner Hematology/Oncology 06/29/21 Angle Kamara, RN [address] [place] [address] Specialty Pastoral Worker Hematology/Oncology 06/29/21 [facility] Adult Basic Education Manager 11/17/22 Plant Supervisor Relationship Specialty Start Date End Date Flash Pearl MD [address] [place] [address] PCP - General 11/12/00 Sheng Gomez MD [address] [place] [address] [facility] 09/20/20 Asher Hummel MD [address] [facility] [address] Physician Hematology/Oncology 06/29/21 Wilfred Martinez, LOG CHIPPER.PROJECT DEVELOPMENT LEADER [address] [facility] [address] Nurse Practitioner Hematology/Oncology 06/29/21 Angle Kamara, MONET [address] [facility] [address] Specialty Pastoral Worker Hematology/Oncology 06/29/21 [facility] Adult Basic Education Manager 11/17/22 Plant Supervisor Relationship Specialty Start Date End Date Flash Pearl MD [address] [place] [address] PCP - General 11/12/00 Sheng Gomez MD [address] [place] [address] [facility] 09/20/20 Asher Hummel MD [address] [facility] [address] Physician Hematology/Oncology 06/29/21 Wilfred Martinez, LOG CHIPPER.PROJECT DEVELOPMENT LEADER [address] [facility] [address] Nurse Practitioner Hematology/Oncology 06/29/21 Angle Kamara, RN [address] [place] [address] Specialty Pastoral Worker Hematology/Oncology 06/29/21 [facility] Adult Basic Education Manager 11/17/22 FOR RECORDS PERTAINING TO PATIENTS WHO [...] BE BASED ON THE PRIMARY CLINICAL RECORDS. [facility] [employer] [facility]. provides no warranty or guarantee of the accuracy or completeness of information in this document.
--- NOTE | 2023-10-17 05:00 | ED.EPISTAXI1 ---
HPI - Epistaxis General Chief Complaint: Epistaxis Stated Complaint: BLOODY NOSE Time Seen by Provider: 10/17/23 04:50 Source: patient Mode of arrival: Wheelchair Limitations: no limitations History of Present Illness HPI Narrative: 82-year-old presents for nosebleed on the left side. It started during the middle of the night. He has had issues with epistaxis and had to have packing placed earlier this month. He has had follow-up with ENT. He states he is no longer on the Eliquis and only takes aspirin. No trauma. No dizziness. Related Data Home Medications ?Medication ?Instructions ?Recorded ?Confirmed aspirin 81 mg tablet,delayed 81 mg PO QPM 02/03/23 09/30/23 release dapagliflozin propanediol 10 mg 10 mg PO DAILY 02/03/23 09/30/23 tablet (Farxiga) omeprazole 40 mg capsule,delayed 40 mg PO DAILY 02/03/23 09/30/23 release terazosin 5 mg capsule 5 mg PO QPM 02/03/23 09/30/23 atorvastatin 20 mg tablet 20 mg PO QDAY 04/23/23 09/30/23 blood sugar diagnostic ([facility] 04/23/23 07/09/23 Ultra Test strips) cholecalciferol (vitamin D3) 25 25 mcg PO DAILY 07/09/23 09/30/23 mcg (1,000 unit) tablet (Vitamin D3) cyclobenzaprine 5 mg tablet 5 mg PO BID PRN muscle spasm 07/09/23 09/30/23 glipizide 5 mg tablet, extended 5 mg PO QPM 07/09/23 09/30/23 release 24 hr (Glucotrol XL) metoprolol succinate 25 mg 25 mg PO DAILY 07/09/23 09/30/23 tablet,extended release 24 hr (Toprol XL) Previous Rx's ?Medication ?Instructions ?Recorded bumetanide 1 mg tablet 1 mg PO QAM #0 tabs 07/10/23 febuxostat 40 mg tablet 40 mg PO DAILY 30 days #30 tabs 07/10/23 lisinopril 2.5 mg tablet 2.5 mg PO DAILY 30 days #30 tabs 07/10/23 cephalexin 500 mg capsule 500 mg PO Q12H 7 days #14 caps 10/01/23 Allergies Allergy/AdvReac Type Severity Reaction Status Date / Time bee venom protein (honey bee) Allergy Severe Verified 10/17/23 04:46 coreg Allergy Severe Uncoded 10/17/23 04:46 Review of Systems ROS Narrative A ten point review of systems is negative except as noted above. 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, valve unspecified (ICD-10) Anemia ?D64.9 - Anemia, unspecified (ICD-10) Surgical History History of heart artery stent ?Z95.5 - Presence of coronary angioplasty implant and graft (ICD-10) Family History Father Family history of stroke Mother Family history of stroke Family history of hypertension Family history of CHF (congestive heart failure) Brother Family history of diabetes mellitus Sister Family history of cancer Social History Within the past year, how often did you have a drink containing alcohol: never Score interpretation: A score less than 4 is consistent with normal alcohol consumption. 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 Highest level of school completed/degree received: high school graduate Are you now , , , , never or living with a partner: In a typical week, how many times do you talk on the telephone with family, friends, or neighbors: 3 or more times per week How often do you get together with friends or relatives: 3 or more times per week How often do you attend anabaptism or jewish services: 1-3 times per year Little interest or pleasure in doing things: not at all Feeling down, depressed, or hopeless: not at all Feel stressed/tense/nervous/anxious/difficulty sleeping: not at all Life stressors: unknown source of stress Do you think of yourself as: straight/heterosexual Gender Identity: male Exam Narrative Exam Narrative: Nurses note and vital signs reviewed and patient is not hypoxic. General: The patient appears well and in no apparent distress. Patient is resting comfortably on cart. Skin: Warm, dry, no pallor noted. There is no rash noted. Head: Normocephalic, atraumatic Eye: Normal conjunctiva, no drainage Ears, Nose, Mouth, and Throat: oral mucosa is moist. He has paper towel in the left nares. No active bleeding. Cardiovascular: Regular Rate and Rhythm Respiratory: Patient is in no distress, no accessory muscle use, lungs are clear to auscultation, no wheezing, rales or rhonchi Back: non-tender GI: Soft and Musculoskeletal: The patient has no evidence of calf tenderness, no pitting edema, symmetrical pulses noted bilaterally Neurological: Awake and alert Psychiatric: Cooperative Constitutional Vital Signs, click to edit/add: Last Vital Signs Temp 97.8 F 10/17/23 04:40 Pulse 80 10/17/23 04:40 Resp 14 10/17/23 04:40 BP 136/48 L 10/17/23 04:40 Pulse Ox 100 10/17/23 04:40 O2 Del Method Nasal Cannula 10/17/23 04:40 O2 Flow Rate 3 10/17/23 04:40 Course Vital Signs Vital signs: Vital Signs Temperature 97.8 F 10/17/23 04:40 Pulse Rate 80 10/17/23 04:40 Respiratory Rate 14 10/17/23 04:40 Blood Pressure 136/48 L 10/17/23 04:40 Pulse Oximetry 100 10/17/23 04:40 Oxygen Delivery Method Nasal Cannula 10/17/23 04:40 Oxygen Delivery Flow Rate 3 10/17/23 04:40 Temperature 97.8 F 10/17/23 04:40 Pulse Rate 80 10/17/23 04:40 Respiratory Rate 14 10/17/23 04:40 Blood Pressure 136/48 L 10/17/23 04:40 Pulse Oximetry 100 10/17/23 04:40 Oxygen Delivery Method Nasal Cannula 10/17/23 04:40 Oxygen Delivery Flow Rate 3 10/17/23 04:40 MDM - Epistaxis MDM Narrative Medical decision making narrative: He has had no further epistaxis and is released. He will call his ENT's office in the morning for follow-up instructions but was informed that he would need to have the packing removed in 3 days. Differential Diagnosis Differential diagnosis: Likely anterior epistaxis and posterior epistaxis Discharge Plan Discharge Stand Alone Forms: Portal Instructions Chief Complaint: Epistaxis Clinical Impression: Epistaxis Patient Disposition: Home, Self-Care Time of Disposition Decision: 05:14 Condition: Good Mode of Transportation: Private Vehicle Prescriptions / Home Meds: No Action dapagliflozin propanediol [Farxiga] 10 mg tablet 10 mg PO DAILY omeprazole 40 mg capsule,delayed release(DR/EC) 40 mg PO DAILY terazosin 5 mg capsule 5 mg PO QPM aspirin 81 mg tablet,delayed release (DR/EC) 81 mg PO QPM cephalexin 500 mg capsule 500 mg PO Q12H 7 Days Qty: 14 0RF atorvastatin 20 mg tablet 20 mg PO QDAY (DME) OneTouch Ultra Test Strip MISCELLANEOUS glipizide [Glucotrol XL] 5 mg tablet extended release 24hr 5 mg PO QPM metoprolol succinate [Toprol XL] 25 mg tablet extended release 24 hr 25 mg PO DAILY cyclobenzaprine 5 mg tablet 5 mg PO BID PRN (Reason: muscle spasm) cholecalciferol (vitamin D3) [Vitamin D3] 25 mcg (1,000 unit) tablet 25 mcg PO DAILY lisinopril 2.5 mg tablet 2.5 mg PO DAILY 30 Days Qty: 30 0RF febuxostat 40 mg Tablet 40 mg PO DAILY 30 Days Qty: 30 0RF bumetanide 1 mg tablet 1 mg PO QAM Qty: 0 0RF Print Language: Afghan Instructions: Nosebleed (ED) Additional Instructions: Call the office of Dr. Marshall in the morning for follow-up. The packing should be removed in 3 days. Referrals: JACQUELIN HERNANDES [Primary Care Provider] - 1 week Procedures ED Procedure Instructions Procedures Procedures: The following procedure was performed by me. Paper towel was removed and 5.5 cm anterior packing was placed and inflated. He tolerated the procedure well. Hemostasis achieved.
== END 2023-10-17 05:24 | disposition home or self-care (01) ==
PROVIDERS: Emergency Provider Emergency Medicine; PCP Family Medicine
DX: R04.0 Epistaxis (principal); Z79.82 Long term (current) use of aspirin; Z79.899 Other long term (current) drug therapy; I11.0 Hypertensive heart disease with heart failure; I50.9 Heart failure, unspecified; C94.6 Myelodysplastic disease, not elsewhere classified; E78.5 Hyperlipidemia, unspecified; E11.9 Type 2 diabetes mellitus without complications; Z95.5 Presence of coronary angioplasty implant and graft
CPT/HCPCS: 30905; 99281

== ENCOUNTER 2023-10-20 13:42 | Outpatient (OUT) | payer MEDICARE, SELFPAY ==
[2023-10-20 14:28] LABS: Basophils Percent Auto 0.6 % (0.2-2.0); Eosinophils Percent Auto 0.6 % (0.9-7.0); Immature Granulocytes Abs Auto 0.07 10^3/uL (0.00-0.03); Immature Granulocytes Pct Auto 2.1 % (0.0-0.5); Lymphocytes Absolute Auto 0.7 10^3/uL (1.2-3.8); Lymphocytes Percent Auto 21.8 % (20.5-60.0); Mean Corpuscular HGB Conc 31.2 g/dL (29.9-35.2); Mean Corpuscular Hemoglobin 31.3 pg (25.9-34.0); Mean Corpuscular Volume 100.5 fL (80.0-94.0); Mean Platelet Volume 13.9 fL (9.5-13.5); Monocytes Absolute Auto 0.7 10^3/uL (0.3-0.8); Monocytes Percent Auto 19.4 % (1.7-12.0); Neutrophils Absolute Auto 1.9 10^3/uL (1.4-6.5); Neutrophils Percent Auto 55.5 % (43.0-75.0); Platelet Count 75 10^3/uL (150-450); Red Blood Count 2.17 10^6/uL (4.70-6.10); Red Cell Distribution Width 21.4 % (11.0-15.0); White Blood Count 3.4 10^3/uL (4.0-11.0)
[2023-10-20 14:32] LABS: Hematocrit 21.8 % (42.0-54.0); Hemoglobin 6.8 g/dL (14.0-18.0)
[2023-10-20 14:40] LABS: Anion Gap 17.4; BUN Creatinine Ratio 21.8; Calcium 8.1 mg/dL (8.5-10.1); Carbon Dioxide 27.6 mmol/L (21.0-32.0); Chloride 102 mmol/L (98-107); Estimated GFR (African America 36 (>=60); Estimated GFR (Non-African Ame 29 (>=60); Glucose 149 mg/dL (74-106); Sodium 143 mmol/L (136-145)
[2023-10-20 14:41] LABS: INR 1.12; Partial Thromboplastin Time 27.3 sec (22.3-36.2); Prothrombin Time 11.8 sec (9.0-11.6)
== END 2023-10-20 13:43 | disposition home or self-care (01) ==
LOC: PST 13:43
PROVIDERS: PCP Family Medicine; Visit Provider Otolaryngology
DX: Z01.812 Encounter for preprocedural laboratory examination (principal); R04.0 Epistaxis
CPT/HCPCS: 80048; 85025; 85610; 85730; 86850; 86900; 86901

== ENCOUNTER 2023-10-20 13:48 | Outpatient (OUT) | payer MEDICARE, SELFPAY | END 2023-10-20 13:49 | disposition home or self-care (01) | LOC: LAB 13:50 | PROVIDERS: PCP Family Medicine; Visit Provider Internal Medicine Hematology & Oncology | DX: D46.9 Myelodysplastic syndrome, unspecified (principal) | CPT/HCPCS: 86850; 86900; 86901 ==

== ENCOUNTER → 2023-10-21 06:39 | Day surgery (SDC) | payer MEDICARE, SELFPAY ==
[2023-10-20 14:14] VITALS: BP 109/50; PULSE 73; RESP 22; TEMP 36.3; O2SAT 92; BMI 33.2
--- OUTSIDE RECORDS SUMMARY | 2023-10-21 06:48 | XMS_ITS | CCD ---
Author Organization [facility] Care Team Providers Care Central Office Trouble Shooter Name Role Phone MYLENE ANDREW Unavailable Unavailable Flash Pearl Unavailable Unavailable Evette Sheriff Unavailable Unavailable Flash Pearl Unavailable Unavailable MYLENE ANDREW Unavailable Unavailable Flash Pearl Unavailable Unavailable Evette Sheriff Unavailable Unavailable Flash Pearl Unavailable Unavailable Flash Pearl Primary Care Provider Flash Pearl MD Primary Care Provider Sheng Gomez MD Unavailable Asher Hummel MD Unavailable [phone] Michelle UX VISUAL DESIGNER.DERRICK HELPER, Wilfred Unavailable Anh RN, Angle Unavailable [phone] KELSEY RAMIREZ Admitting Unavailable SELF, REFERRED Referring Unavailable FLASH PEARL Primary Care Unavailable RAMOS, LUIS Attending Unavailable Flash Pearl MD Primary Care Provider [phone] Sheng Gomez MD Unavailable Asher Hummel MD Unavailable Michelle UX VISUAL DESIGNER.DERRICK HELPER, Wilfred Unavailable Anh RN, Angle Unavailable [phone] Flash Pearl MD Primary Care Provider Estephanie SEN, Asher Unavailable [phone] Anh RN, Angle Unavailable Flash Pearl MD Primary Care Provider [phone] Flash Pearl MD Primary Care Provider Sheng Gomez MD Unavailable [phone] Estephanie SEN, Asher Unavailable [phone] Michelle UX VISUAL DESIGNER.RAMONACristely Unavailable [phone] Anh HEALY, Angle Unavailable CLAUDIAC, DR SORIA [...] ., DR FLASH Holden Procedure Practitioner Unavai bhanu REQUEST, NONE LISTED Primary Care Unavaila ble PEARL ., DR FLASH Holden Consulting Unavailable RED CLOUD, DR JOSIE Rowe Consulting Unavailable ZIEBER, DR OUMOU Butts Consulting Unavailable PAY ., DR MEDINA Consulting Unavailable SORENSON, NAYANA Consulting Unavailable FLAKITA ., MARICRUZ Consulting Unavailable LORI, DR RADHA Collado Attending Unavailable LORI, DR RADHA Collado Admitting Unavailable REQUEST, DR NONE LISTED Primary Care Unavaila ble MISC, DR SORIA Consulting Unavailable LORI, DR RADHA Collado Consulting Unavailable ABSAIGE, ASHER Consulting Unavailable MICHELLE, DR WILFRED Collado [...] Attending Unavailable MISC, DR SORIA Consulting Unavailable HYMARY JO, ASHER Consulting Unavailable REQUEST, DR NONE LISTED [...] PEARL ., DR FLASH Holden Consulting Unavailable PERAL ., DR FLASH Holden Attending Unavailable PEARL [...] Unavailable WILFRED MARTINEZ Referring Unavailable FLASH PEARL EDSPRINGERTON Primary Care Unavailable ABHYANKAR, ASHER Referring Unavailable FLASH PEARL EDWARD Primary Care Unavailable ABHYANKAR, ASHER Referring Unavailable FLASH PEARL EDSPRINGERTON Primary Care Unavailable ABHYANKAR, ASHER Referring Unavailable RADHA SANDOVAL Attending Unavailable FLASH PEARL EDSPRINGERTON Primary Care Unavailable FLASH PEARL EDWARD Primary Care Unavailable WILFRED MARTINEZ Referring Unavailable FLASH PEARL EDWARD Primary Care Unavailable ABHYANKAR, ASHER Referring Unavailable FLASH PEARL EDSPRINGERTON Primary Care Unavailable ABHYANKAR, ASHER Referring Unavailable FLASH PEARL EDSPRINGERTON Primary Care Unavailable ABHYANKAR, ASHER Referring Unavailable FLASH PEARL EDSPRINGERTON Primary Care Unavailable FLASH PEARL EDWARD Primary Care Unavailable ABHYANKAR, ASHER Referring Unavailable FLASH PEARL EDSPRINGERTON Primary Care Unavailable ABHYANKAR, ASHER Referring Unavailable PEARLFLASH PAZ EDWARD Primary Care Unavailable ABHYANKAR, ASHER Referring Unavailable FLASH PEARL EDWARD Primary Care Unavailable ABHYANKAR, ASHER Referring Unavailable FLASH PEARL EDWARD Primary Care Unavailable ABHYANKAR, ASHER Referring Unavailable FLASH PEARL EDWARD Primary Care Unavailable ABHYANKAR, ASHER Referring Unavailable PEARLFLASH PAZ EDSPRINGERTON Primary Care Unavailable WILFRED MARTINEZ Referring Unavailable FLASH PEARL EDWARD Primary Care Unavailable ABHYANKAR, ASHER Referring Unavailable FLASH PEARL EDWARD Primary Care Unavailable ABHYANKAR, ASHER Referring Unavailable PEARL, FLASH EDWARD Primary Care Unavailable JAVAD EDMONDSON Referring Unavailable PEARLFLASH PAZ EDWARD Primary Care Unavailable ABHYANKAR, ASHER Referring Unavailable PEARLFLASH PAZ EDWARD Primary Care Unavailable ABHYANKAR, ASHER Referring Unavailable PEARLFLASH PAZ EDWARD Primary Care Unavailable ABHYANKAR, ASHER Referring Unavailable PEARL, FLASH EDWARD Primary Care Unavailable ABHYANKAR, ASHER Referring Unavailable PEARLFLASH PAZ EDWARD Primary Care Unavailable WILFRED MARTINEZ Attending [...] Unavailable FLASH PEARL EDWARD Primary Care Unavailable RADHA SANDOVAL Attending Unavailable FLASH PEARL EDWARD Primary Care Unavailable RYANNE, FLASH EDWARD Primary Care Unavailable ABHYANKAR, ASHER Referring Unavailable PEARL, FLASH EDWARD Primary Care Unavailable ABHYANKAR, ASHER Referring Unavailable ABHYANKAR, ASHER Referring Unavailable PEARLFLASH PAZ EDWARD Primary Care Unavailable RYANNE, FLASH EDWARD Primary Care Unavailable ABHYANKAR, ASHER Referring Unavailable RYANNE, FLASH EDWARD Primary Care Unavailable ABDIANNAAR, ASHER [...] Unavailable RYANNE, FLASH EDWARD Primary Care Unavailable ELYSIA ESPOSITO Attending Unavailable PEARL, FLASH EDWARD Primary Care Unavailable PEARL, FLASH EDWARD Primary Care Unavailable ELYSIA ESPOSITO Referring Unavailable ELYSIA ESPOSITO Attending Unavailable ABHYANKAR, [...] Unavailable PEARL, FLASH EDWARD Primary Care Unavailable ABSAIGE, SUNDEEP Collado Referring Unavailable PEARL, FLASH EDWARD [...] Unavailable PEARL, FLASH EDWARD Primary Care Unavailable Jacquelin Hernandes Primary Care Physician MATHEUS MACHADO Referring Unavailable PEARL, FLASH E Primary Care Unavailable Jacquelin Hernandes Attending Unavailable Jacquelin Hernandes Admitting Unavailable Al-Jose Loera Yadai Admitting Unavailabl e Al-MarJose villarreal Yaser Attending Unavailabl e Eliud-Jose Loera Yaser Attending Unavailramírez e Jacquelin Hernandes Referring Unavailable Jacquelin Hernandes Attending Unavailable Jacquelin Hernandes Attending Unavailable Jacquelin Hernandes Attending Unavailable Jacquelin Hernandes Attending Unavailable Malinda Elliott Admitting Unavailable EarlMalinda marin Attending Unavailable Jacquelin Hernandes Attending Unavailable Jacquelin Hernandes Admitting Unavailable Jacquelin Hernandes Admitting Unavailable Jasper MARIE Attending Unavailable Jacquelin Hernandes Attending Unavailable PEARLFLASH PAZ E Attending Unavailable EarlMalinda marin Attending Unavailable PEARLFLASH PAZ E Attending Unavailable Jacquelin Hernandes Attending Unavailable Jacquelin Hernandes Attending Unavailable Jacquelin Hernandes Attending Unavailable Jacquelin Hernandes Attending Unavailable Jacquelin Hernandes Attending Unavailable Elena DO Attending Unavailable Jacquelin Hernandes Referring Unavailable Elena DO Attending Unavailable Jacquelin Hernandes Attending Unavailable Jacquelin Hernandes Admitting Unavailable Earl Malinda L Attending Unavailable Earl, Malinda L Admitting Unavailable MD Jacquelin Hernandes Primary Care Provider JIGAR Marie Emergency Provider [phone] Caryl Marie Attending Unavailable Caryl Marie Admitting Unavailable Jacquelin Hernandes Primary Care Unavailable BERNARDA HYDE Attending Unavailable BERNARDA HYDE Attending Unavailable JACQUELIN HERNANDES Referring Unavailable KAREN ZUÑIGA Attending Unavailable SHENG GOMEZ Attending Unavailable SHENG GOMEZ Attending Unavailable RAYO QUINTERO Attending Unavailable SHENG GOMEZ Attending Unavailable Allergies Allergy Classification Reported Allergen(s) Allergy Type Date of Onset Reaction(s) Facility (2 sources) carvedilol; Translations: [Coreg] Drug Allergy 6 unknown [facility] Repository (20 sources) Bee/Wasp/Ant venom Propensity to adverse reactions 2 [facility] (20 sources) carvedilol; Translations: [CARVEDILOL] Drug Allergy 0 Hives, Weal (disorder) [facility] (1 source) Bee/Wasp/Ant venom; Translations: [Bee/Wasp Stings] Propensity to adverse reactions (disorder) 2 [facility] Repository (1 source) carvedilol Drug Allergy 1 [facility] Repository (1 source) bee venom Drug allergy (disorder) [facility] Repository (1 source) OTHER; Translations: [OTHER] Propensity to adverse reactions (disorder) 2 [facility] Repository (5 sources) Metoprolol; Translations: [metoprolol] Drug Allergy hives [facility] (1 source) Sulfonamide -class of antibiotic-; Translations: [Sulfonamide -class of antibiotic-] Propensity to adverse reactions (disorder) [facility] Repository (1 source) Bee pollen; Translations: [BEE POLLEN] Propensity to adverse reactions to drug (disorder) 2 [facility] Repository Medications Current Medications Medication Drug [...] 1 tablet by adrian th once daily aspirin 81 mg chewable tablet [...] Daily, # 90 tab(s), Refills(s) 1, Pharmacy: [facility] [id number], 170.2, cm, 02/13/23 15:53:00 EDT, Height/Length Dosing, [...] BID, # 180 tab(s), Refills(s) 1, Pharmacy: [facility] [id number], 170.2, cm, 02/13/23 15:53:00 EDT, Height/Length Dosing, [...] TID, # 270 tab(s), Refills(s) 1, Pharmacy: [facility] [id number], 170.2, cm, 02/13/23 15:53:00 EDT, Height/Length Dosing, 102.4, kg, 02/13/23 15:53:00 EDT, Weight Dosing Start Date: 02/24/23 Status: Ordered Start: 12-09-2020 colchicine 0.6 mg tablet Take 0.6 mg by mouth as needed. As needed 1-2 times/week 0 12/09/2020 Active Start: 03-25-2017 take 1 tablet by adrian th three times daily colchicine 0.6 mg Tab 0.6 mg = 1 tab(s), Oral, TID, Refills(s) 0, Gout pain Start Date: 03/25/17 Status: Ordered Comment on above: Take 0.6 mg by mouth as needed. As needed 1-2 times/week dapagliflozin 10 mg oral tablet (20 sources) Sodium-Glucose Cotransporter 2 Inhibitor Start: take 1 tablet by mouth once daily Farxiga 10 mg oral tablet 10 mg = 1 tab(s), Oral, Daily, # 90 tab(s), Refills(s) 1, Pharmacy: [facility] [id number], 170.2, cm, 02/13/23 15:53:00 EDT, Height/Length Dosing, [...] System (Sensor). Replace sensor every 14 days., [facility] [id number], Supply, 170.2, cm, 03/10/23 14:59:0... Start Date: 03/10/23 Status: Ordered Freestyle Carmen Flash 2 Glucose Monitoring 14 Day System ([place]) (1 source) Start: 03-10-20 Freestyle Carmen Flash 2 Glucose Monitoring 14 Day System ([place]) Freestyle Carmen Flash 2 Glucose Monitoring 14 Day System ([place]), See Instructions, 1 EA, 0, Freestyle Carmen Flash Glucose Monitoring 14 Day System ([place]), [facility] [id number], Supply, 170.2, cm, 03/10/23 14:59:00 EDT, Height/Length Dosing, 10... Start Date: 03/10/23 Status: Ordered glipiZIDE er 5 mg 24 hr extended release oral tablet (20 sources) Sulfonylurea Start: 02-25-20 23 take 1 tablet by mouth twice daily glipiZIDE 5 mg ER Tab 5 mg = 1 tab(s), Oral, BID, # 180 tab(s), Refills(s) 1, Pharmacy: [facility] [id number], 170.2, cm, 02/13/23 15:53:00 EDT, Height/Length Dosing, [...] BID, # 90 tab(s), Refills(s) 1, Pharmacy: [facility] [id number], 170.2, cm, 02/13/23 15:53:00 EDT, Height/Length Dosing, [...] Daily, # 90 tab(s), Refills(s) 1, Pharmacy: [facility] [id number], 170.2, cm, 02/13/23 15:53:00 EDT, Height/Length Dosing, [...] Daily, # 45 tab(s), Refills(s) 1, Pharmacy: [facility] [id number], 170.2, cm, 02/13/23 15:53:00 EDT, Height/Length Dosing, [...] Daily, # 90 cap(s), Refills(s) 1, Pharmacy: [facility] [id number], 170.2, cm, 02/13/23 15:53:00 EDT, Height/Length Dosing, 102.4, kg, 02/13/23 15:53:00 EDT, Weight Dosing Start Date: 02/24/23 Status: Ordered Start: 11-20-2022 take 1 capsule by mo [facility] once daily omeprazole 40 mg Cap-DR [...] Daily, # 90 tab(s), Refills(s) 1, Pharmacy: [facility] [id number], 170.2, cm, 02/13/23 15:53:00 EDT, Height/Length Dosing, 102.4, kg, 02/13/23 15:53:00 EDT, Weight Dosing Start Date: 02/24/23 Status: Ordered Start: 11-25-2021 take 1 tablet by adrian th once daily spironolactone 25 mg Tab 25 [...] Daily, # 90 cap(s), Refills(s) 1, Pharmacy: [facility] [id number], 170.2, cm, 12/03/22 13:27:00 EDT, Height/Length Dosing, [...] to affected area twice daily. 30 g 10/15/2021 10/15/2022 Start: 10-15-2021 End: 10-15-2022 [facility] NASAL OINTMENT Apply to affected area twice daily. 30 g 10/15/2021 10/15/2022 Active Comment on above: Apply [...] oral tablet (20 sources) Vitamin D Start: cholecalciferol (VITAMIN D3) 1,000 unit tab tablet [...] Coronary atherosclerosis of unspecified type of vessel, holy cross or graft Take one(1) tablet daily at bedtime. 90 06/27/2005 Active Comment on above: Take one(1) tablet d aily at bedtime. 24 hr dilTIAZem hydrochloride 180 mg extended release oral capsule (5 sources) Calcium Channel Angel Start: take 1 tablet by mouth once daily in the evening CARDIZEM CD 180 MG ORAL CP24 Take one(1) tablet daily in the evening. 01/14/2005 Active Comment on above: Take one(1) [...] one(1) tablet daily in the morning. 90 01/14/2005 Active Comment on above: Take one(1) [...] tablet by mouth twice daily Potassium Chloride (Ijz-Gddc-Ouh M20) 20 mEq oral tablet, extended release 20 mEq = 1 tab(s), Oral, BID, # 180 tab(s), Refills(s) 1, Pharmacy: [facility] [id number], 170.2, cm, 02/13/23 15:53:00 EDT, Height/Length Dosing, 102.4, kg, 02/13/23 15:53:00 EDT, Weight Dosing Start Date: 02/24/23 Status: Ordered Start: 11-20-2022 take 1 tablet by adrian th twice daily Potassium Chloride (Uyj-Pqew-Wox M20) 20 mEq oral tablet, extended release [...] Active Problems Problem Classification Problem Date Documented Da te Episodic/Chronic Acute and unspecified renal failure (8 [...] Coronary atherosclerosis; Translations: [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] Onset: 01-13-2002 11-21-2003 Chronic Coronary atherosclerosis and other heart disease (3 sources) Presence of coronary angioplasty implant and graft; Translations: [PRESENCE COR ANGPLSTY IMPLANT AND GRAFT] Onset: 12-11-2022 Episodic Deficiency and other anemia (20 sources) Iron [...] Onset: 12-07-2022 Episodic Other aftercare (1 source) [facility] (current) use of aspirin; Translations: [ALF CURRENT USE OF ASPIRIN] Onset: 12-11-2022 Episodic Other aftercare (1 source) Other detention (current) drug therapy; Translations: [OTH DENSITOMETER READER CURRENT DRUG THERAPY] Onset: 12-11-2022 Episodic Other aftercare (1 source) [facility] (current) use of oral hypoglycemic drugs; Translations: [ALF USE ORAL HYPOGLYCEMIC DX] Onset: 12-11-2022 Episodic Other diseases of kidney and ureters (4 sources) Cyst of kidney 09-07-2019 Episodic Other ear and sense organ disorders (20 sources) Mixed conductive AND sensorineural hearing loss; Translations: [Mixed conductive and sensorineural hearing loss, unilateral, left ear with restricted hearing on the contralateral side] Onset: 07-13-2021 07-13-2021 Chronic Other gastrointestinal disorders (2 sources) Personal history of other diseases of the digestive system; Translations: [Personal history of other diseases of the digestive system] Onset: 05-03-2022 Episodic Other hematologic conditions (4 sources) Bone marrow disorder 01-06-2023 Episodic Other lower respiratory disease (1 source) Dyspnea, unspecified; Translations: [DYSPNEA UNSPECIFIED] Onset: 12-11-2022 Episodic Other nutritional; endocrine; and metabolic disorders (20 sources) 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; Translations: [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] Onset: 08-24-2021 08-24-2021 Chronic Other skin disorders (4 sources) Superficial folliculitis 10-19-2020 Episodic Other upper respiratory disease (3 sources) Bleeding from nose; Translations: [Epistaxis] Onset: 09-29-2023 Episodic Otitis media and related conditions (1 [...] Translations: [DO NOT RESUSCITATE] Onset: 12-11-2022 Episodic Residual codes; unclassified (1 source) Left against medical advice; Translations: [Procedure and treatment not carried out because of patient's decision for other reasons] 10-17-2023 Episodic Respiratory failure; insufficiency; arrest (adult) (1 [...] Classification Problem Date Documented Da te Episodic/Chronic Gastrointestinal hemorrhage (20 sources) Gastrointestinal hemorrhage; Translations: [...] perceptions, bilateral] Onset: 1 07-13-2021 Episodic Other screening for suspected conditions (not mental disorders or infectious disease) (20 sources) Liver function tests abnormal; Translations: [Abnormal results of liver function studies] Onset: 4 11-21-2003 Episodic Other upper respiratory disease (1 source) Epistaxis; Translations: [Epistaxis] Onset: 2 Episodic Results Test Name Value Interpretation Reference Range Facil ity 36on 10-20-2023 36 Patient's clinton mccall asking for clearance for Don. She called me from Dr. Hyde' office and the doctor was on the phone with her. Dr. Hyde would like to remove the packing/balloon from his nose and use cauterization tomorrow under general anesthesia. I asked Dr. Hyde if he's requesting clearance and he said Don's is the one asking. He said there really was no other choice than to do this procedure for Don. She said you've told her in the past that he should not go under because you didn't think he'd make it off the table . Any advice? Normal [facility] Anisocytosis LM Ql (Bld)Orde red By: Caryl Marie on 10-17-2023 Anisocytosis Ql (Bld) Slight [facility] Band form neutrophils/100 WB C Manual cnt (Bld)Ordered By: Caryl Marie on 10-17-2023 Band form neutrophils/100 WBC (Bld) 4 % 0-5 [facility] Basic Metabolic Panelon 09-26 Anion gap [Moles/Vol] 14.8 mmol/L Normal 6.0-15.0 [facility] Comment on above: Performed By: #### D IFF CBC, BMP #### [facility] [address] [place] [address] [place] Calcium [Mass/Vol] 8.1 mg/dL Low 8.6-10.[address] [facility] Comment on above: Performed By: #### D IFF CBC, BMP #### [facility] [address] [place] [address] [place] Chloride [Moles/Vol] 103 mmol/L Normal 98-107 [facility] Comment on above: Performed By: #### D IFF CBC, BMP #### [facility] [address] [place] [address] [place] CO2 [Moles/Vol] 25.2 mmol/L Normal 21.0-31.0 [facility] Comment on above: Performed By: #### D IFF CBC, BMP #### [facility] [address] [place] [address] [place] Creatinine [Mass/Vol] 1.98 mg/dL High 0.70-1.30 [facility] Comment on above: Performed By: #### D IFF CBC, BMP #### [facility] [address] [place] [address] [place] Creatinine Clr Calc Pharmacy 29.51 [facility] Comment on above: Result Comment: PERF ORMED BY: [place] [address] PATHOLOGIST BEATER ENGINEER HELPER XAVI ZAIDI M.D. Performed By: #### D IFF CBC, BMP #### [facility] [address] [place] [address] [place] GFR/1.73 sq M.predicted MDRD (S/P/Bld) [Vol rate/Area] 32.696 mL/min/{1.73_m2} [facility] Comment on above: Performed By: #### D IFF CBC, BMP #### [facility] [address] [place] [address] [place] Glucose [Mass/Vol] 202 mg/dL High 70-[address] [facility] Comment on above: Result Comment: [facility] Glucose Reference Range is dependent on time and content of last meal. Glucose of more than 200 mg/dL in a nonstressed, ambulatory subject supports the diagnosis of Diabetes Mellitus. ADA recommended reference range Performed By: #### D IFF CBC, BMP #### [facility] [address] Potassium [Moles/Vol] 4.0 mmol/L Normal 3.5-5.1 [facility] Comment on above: Performed By: #### D IFF CBC, BMP #### [facility] [address] Sodium [Moles/Vol] 139 mmol/L Normal 136-[address] [facility] Comment on above: Performed By: #### D IFF CBC, BMP #### [facility] [address] [place] [id number] [place] Urea nitrogen [Mass/Vol] 49 mg/dL High 7-25 [facility] Comment on above: Performed By: #### D IFF CBC, BMP #### [facility] [address] [place] [id number] [place] Basophils Auto (Bld) [#/Vol] Ordered By: Caryl Marie on 10-17-2023 Basophils (Bld) [#/Vol] N/A [facility] Basophils/100 WBC Auto (Bld) Ordered By: Caryl Marie on 10-17-2023 Basophils/100 WBC (Bld) N/A [facility] Basophils/100 WBC Manual cnt (Bld)Ordered By: Caryl Marie on 10-17-2023 Basophils/100 WBC (Bld) 1 % 0-2 [facility] Calcium [Mass/volume] in Ser um or PlasmaOrdered By: Caryl Marie on 10-17-2023 Calcium [Mass/Vol] 8.1 mg/dL 8.6-10.[address] [facility] Carbon dioxide, total [Moles /volume] in Serum or PlasmaOrdered By: Caryl Marie on 10-17-2023 CO2 [Moles/Vol] 25.2 mmol/L 21.0-31.0 [facility] Chloride [Moles/volume] in S robinosn or PlasmaOrdered By: Caryl Marie on 10-17-2023 Chloride [Moles/Vol] 103 mmol/L 98-107 [facility] Creatinine [Mass/volume] in Serum or PlasmaOrdered By: Caryl Marie on 10-17-2023 Creatinine [Mass/Vol] 1.98 mg/dL 0.70-1.30 [facility] Diff and CBCon 10-17-2023 Anisocytosis Ql (Bld) Slight Normal [facility] Comment on above: Performed By: #### D IFF CBC, BMP #### [facility] [address] [place] [address] [place] Band form neutrophils/100 WBC (Bld) 4 % Normal 0-5 [facility] Comment on above: Performed By: #### D IFF CBC, BMP #### [facility] [address] [place] [id number] [place] Basophils/100 WBC (Bld) 1 % Normal 0-2 [facility] Comment on above: Performed By: #### D IFF CBC, BMP #### [facility] [address] [place] [address] [place] Eosinophils/100 WBC (Bld) 1 % Normal 1-3 [facility] Comment on above: Performed By: #### D IFF CBC, BMP #### [facility] [address] [place] [id number] [place] Erythrocyte distribution width (RBC) [Ratio] 23.0 % High 12.0-14.8 [facility] Comment on above: Performed By: #### D IFF CBC, BMP #### [facility] [address] [place] [id number] [place] Giant Platelet Tally 2 /100{WBC} Normal [facility] Comment on above: Performed By: #### D IFF CBC, BMP #### [address] Hematocrit (Bld) [Volume fraction] 21.8 % Low 38.8-50.0 [facility] Comment on above: Performed By: #### D IFF CBC, BMP #### [address] Hemoglobin (Bld) [Mass/Vol] 7.3 g/dL Low 13.0-17.0 [facility] Comment on above: Performed By: #### D IFF CBC, BMP #### [address] Lymphocytes/100 WBC (Bld) 20 % Normal 18-42 [facility] Comment on above: Performed By: #### D IFF CBC, BMP #### [address] Macrocytosis Slight Normal [facility] Comment on above: Performed By: #### D IFF CBC, BMP #### [address] MCH (RBC) [Entitic mass] 31.4 pg Normal 27.5-35.2 [facility] Comment on above: Performed By: #### D IFF CBC, BMP #### [address] MCV (RBC) [Entitic vol] 93.5 fL Normal 83.5-101 [facility] Comment on above: Performed By: #### D IFF CBC, BMP #### [address] Mean Corpuscular HGB Conc 33.5 g/dL Normal 32.5-35.6 [facility] Comment on above: Performed By: #### D IFF CBC, BMP #### [address] Metamyelocytes 1 % High 0-0 [facility] Comment on above: Performed By: #### D IFF CBC, BMP #### [address] Microcytosis Slight Normal [facility] Comment on above: Performed By: #### D IFF CBC, BMP #### [facility] [address] [place] [address] Monocytes/100 WBC (Bld) 28.42 % High 0.00-20.00 [facility] Comment on above: Result Comment: For adults in ED, MDW > 20.0 may be associated with a higher risk of sepsis during the first 12 hrs of hospital admission The predictive value of MDW for identifying sepsis in patients with hematological abnormalities has not been established Performed By: #### D IFF CBC, BMP #### [facility] [address] Monocytes/100 WBC (Bld) 17 % High 2-11 [facility] Comment on above: Performed By: #### D IFF CBC, BMP #### [address] Ovalocytes Slight Normal [facility] Comment on above: Performed By: #### D IFF CBC, BMP #### [facility] [address] [place] [address] Platelet Estimate Decreased Normal Normal [facility] Comment on above: Performed By: #### D IFF CBC, BMP #### [facility] [address] [place] [address] Platelet mean volume (Bld) [Entitic vol] 13.0 fL High 6.6-10.1 [facility] Comment on above: Performed By: #### D IFF CBC, BMP #### [facility] [address] [place] [address] Platelet Morphology Normal Normal Normal [facility] Comment on above: Result Comment: PERF ORMED BY: [place] [address] PATHOLOGIST BEATER ENGINEER HELPER XAVI ZAIDI M.D. Performed By: #### D IFF CBC, BMP #### [facility] [address] [place] [address] Platelets (Bld) [#/Vol] 70 10*3/uL Low 150-450 [facility] Comment on above: Performed By: #### D IFF CBC, BMP #### [facility] [address] [place] [address] Poikilocytosis Slight Normal [facility] Comment on above: Performed By: #### D IFF CBC, BMP #### [facility] [address] [place] [address] Polychromasia Slight Normal [facility] Comment on above: Performed By: #### D IFF CBC, BMP #### [facility] [address] [place] [address] [place] RBC (Bld) [#/Vol] 2.33 10*6/uL Low 3.90-5.60 [facility] Comment on above: Performed By: #### D IFF CBC, BMP #### [facility] [address] [place] [address] Segmented neutrophils/100 WBC (Bld) 56 % Normal 50-70 [facility] Comment on above: Performed By: #### D IFF CBC, BMP #### [facility] [address] [place] [address] Stomatocytes Slight Normal [facility] Comment on above: Performed By: #### D IFF CBC, BMP #### [facility] [address] [place] [address] [place] WBC (Bld) [#/Vol] 2.9 10*3/uL Low 4.1-10.[address] [facility] Comment on above: Performed By: #### D IFF CBC, BMP #### [facility] [address] [place] [address] [place] WBC (Bld) [#/Vol] 3.5 10*3/uL Low 4.1-10.[address] [facility] Comment on above: Performed By: #### D IFF CBC, BMP #### [facility] [address] [place] [address] [place] ECG 12 lead ECGon 10-17-2023 ECG 12 lead ECG [facility] [employer] [address] [place] [address] Electrocardiograph Report Signed Patient: Sandip Broussard MR#: [id number] : 1940 Acct:[id number] Age/Sex: 82 / M ADM Date: 10/17/23 Loc: ER Room: Type: [facility] ER Attending Dr: Ordering Provider: Caryl Marie APRN Date of Service: 10/17/23 ECG/ECG 12 lead ECG: Epistaxis Copies to: Test Reason : Blood Pressure : / mmHG Vent. Rate : 069 BPM Atrial Rate : 045 BPM P-R Int : 000 ms QRS Dur : 102 ms QT Int : 400 ms P-R-T Axes : 000 112 087 degrees QTc Int : 428 ms Atrial fibrillation Low voltage QRS Anterolateral infarct (cited on or before 17-OCT-2023) Abnormal ECG When compared with ECG of 17-OCT-2023 15:48, (Unconfirmed) Current undetermined rhythm precludes rhythm comparison, needs review Serial changes of evolving Anterior infarct present Serial changes of evolving Anterolateral infarct present Confirmed by AARON SEN FACC, ELENA ([id number]) on 10/19/2023 12:01:37 PM Referred By: Electronically Signed By:ELENA WANG Transcribed By: MUS Signed By Deacon Bucio MD 10/19/23 1201 Normal [facility] ECG 12 lead ECG [facility] [place] [address] Electrocardiograph Report Signed Patient: Sandip Broussard MR#: [id number] : 1940 Acct:[id number] Age/Sex: 82 / M ADM Date: 10/17/23 Loc: ER Room: Type: [facility] ER Attending Dr: Ordering Provider: Caryl Marie APRN Date of Service: 10/17/23 ECG/ECG 12 lead ECG: Epistaxis Copies to: Test Reason : Blood Pressure : / mmHG Vent. Rate : 078 BPM Atrial Rate : 000 BPM P-R Int : 000 ms QRS Dur : 102 ms QT Int : 404 ms P-R-T Axes : 000 092 112 degrees QTc Int : 460 ms Atrial fibrillation Rightward axis Low voltage QRS Cannot rule out Anteroseptal infarct , age undetermined Inferior injury pattern ACUTE IA / STEMI Consider right ventricular involvement in acute inferior infarct Abnormal ECG No previous ECGs available Confirmed by AARON SEN [facility] ([id number]) on 10/19/2023 12:01:17 PM Referred By: Electronically Signed By:ELENA BUCIO MD, FACC Transcribed By: MUS Signed By Deacon Bucio MD 10/19/23 1201 Normal [facility] Eosinophils Auto (Bld) [#/Vo l]Ordered By: Caryl Marie on 10-17-2023 Eosinophils (Bld) [#/Vol] N/A [facility] Eosinophils/100 WBC Auto (Bl d)Ordered By: Caryl Marie on 10-17-2023 Eosinophils/100 WBC (Bld) N/A [facility] Eosinophils/100 WBC Manual c nt (Bld)Ordered By: aCryl Marie on 10-17-2023 Eosinophils/100 WBC (Bld) 1 % 1-3 [facility] Erythrocyte distribution wid th Auto (RBC) [Ratio]Ordered By: Caryl Marie on 10-17-2023 Erythrocyte distribution width (RBC) [Ratio] 23.0 % 12.0-14.8 [facility] Giant platelets/100 leukocyt es [Ratio] in Blood by Manual countOrdered By: Caryl Marie on 10-17-2023 Giant platelets/100 WBC Manual cnt (Bld) [Ratio] 2 /100{WBC} [facility] Glucose [Mass/volume] in Ser um or PlasmaOrdered By: Caryl Marie on 10-17-2023 Glucose [Mass/Vol] 202 mg/dL 70-[address] [facility] Comment on above: ADA recommended refe rence rangeRandom Glucose Reference Range is dependent on time and content of last meal. Glucose of more than 200 mg/dL in a nonstressed, ambulatory subject supports the diagnosis of Diabetes Mellitus. Hematocrit Auto (Bld) [Volum e fraction]Ordered By: Caryl Marie on 10-17-2023 Hematocrit (Bld) [Volume fraction] 21.8 % 38.8-50.0 [facility] Hemoglobin [Mass/volume] in BloodOrdered By: Caryl Marie on 10-17-2023 Hemoglobin (Bld) [Mass/Vol] 7.3 g/dL 13.0-17.0 [facility] Leukocytes [#/volume] correc iban for nucleated erythrocytes in Blood by Automated counOrdered By: Carly Marie on 10-17-2023 WBC corrected for nucl RBC Auto (Bld) [#/Vol] 2.9 10*3/uL 4.1-10.5 [facility] Lymphocytes Auto (Bld) [#/Vo l]Ordered By: Caryl Marie on 10-17-2023 Lymphocytes (Bld) [#/Vol] N/A [facility] Lymphocytes/100 WBC Auto (Bl d)Ordered By: Caryl Marie on 10-17-2023 Lymphocytes/100 WBC (Bld) N/A [facility] Lymphocytes/100 WBC Manual c nt (Bld)Ordered By: Caryl Marie on 10-17-2023 Lymphocytes/100 WBC (Bld) 20 % 18-42 [facility] MCH Auto (RBC) [Entitic mass ]Ordered By: Caryl Marie on 10-17-2023 MCH (RBC) [Entitic mass] 31.4 pg 27.5-35.2 [facility] MCHC Auto (RBC) [Mass/Vol]Or dered By: Caryl Marie on 10-17-2023 MCHC (RBC) [Mass/Vol] 33.5 g/dL 32.5-35.6 [facility] MCV Auto (RBC) [Entitic vol] Ordered By: Caryl Marie on 10-17-2023 MCV (RBC) [Entitic vol] 93.5 fL 83.5-101 [facility] Macrocytes LM Ql (Bld)Ordere d By: Caryl Maire on 10-17-2023 Macrocytes Ql (Bld) Slight [facility] Metamyelocytes/100 WBC Manua l cnt (Bld)Ordered By: Caryl Marie on 10-17-2023 Metamyelocytes/100 WBC (Bld) 1 % 0-0 [facility] Microcytes LM Ql (Bld)Ordere d By: Caryl Marie on 10-17-2023 Microcytes Ql (Bld) Slight [facility] Monocyte distribution width [Entitic volume] in Blood by AutomatedOrdered By: Caryl Marie on 10-17-2023 Monocyte distribution width Auto (Bld) [Entitic vol] 28.42 % 0.00-20.00 [facility] Comment on above: For adults in ED, MD W > 20.0 may be associated with a higher risk of sepsis during the first 12 hrs of hospital admissionThe predictive value of MDW for identifying sepsis in patients with hematological abnormalities has not been established Monocytes Auto (Bld) [#/Vol] Ordered By: Caryl Marie on 10-17-2023 Monocytes (Bld) [#/Vol] N/A [facility] Monocytes/100 WBC Auto (Bld) Ordered By: Caryl Marie on 10-17-2023 Monocytes/100 WBC (Bld) N/A [facility] Monocytes/100 WBC Manual cnt (Bld)Ordered By: Caryl Marie on 10-17-2023 Monocytes/100 WBC (Bld) 17 % 2-11 [facility] Neutrophils Auto (Bld) [#/Vo l]Ordered By: Caryl Marie on 10-17-2023 Neutrophils (Bld) [#/Vol] N/A [facility] Neutrophils/100 WBC Auto (Bl d)Ordered By: Caryl Marie on 10-17-2023 Neutrophils/100 WBC (Bld) N/A [facility] No Panel InformationOrdered By: Caryl Marie on 10-17-2023 Estimated GFR (CKD-EPI) 32.696 mL/Min [facility] Creatinine Clearance (Chem 29.51 [facility] Nucleated erythrocytes [Pres ence] in Blood by Automated countOrdered By: Caryl Marie on 10-17-2023 Nucleated RBC Auto Ql (Bld) N/A [facility] Ovalocyte detectionOrdered B y: Caryl Marie on 10-17-2023 Ovalocytes LM Ql (Bld) Slight [facility] Platelet adequacy [Presence] in Blood by Light microscopyOrdered By: Caryl Marie on 10-17-2023 Platelets LM Ql (Bld) Decreased Normal [facility] Platelet mean volume Auto (B ld) [Entitic vol]Ordered By: Caryl Marie on 10-17-2023 Platelet mean volume (Bld) [Entitic vol] 13.0 fL 6.6-10.1 [facility] Platelet morphology finding [Identifier] in BloodOrdered By: Caryl Marie on 10-17-2023 Platelet morphology finding Nom (Bld) Normal Normal [facility] Platelets Auto (Bld) [#/Vol] Ordered By: Caryl Marie on 10-17-2023 Platelets (Bld) [#/Vol] 70 10*3/uL 150-450 [facility] Poikilocytosis [Presence] in Blood by Light microscopyOrdered By: Caryl Marie on 10-17-2023 Poikilocytosis LM Ql (Bld) [facility] Polychromasia [Presence] in Blood by Light microscopyOrdered By: Caryl Marie on 10-17-2023 Polychromasia LM Ql (Bld) [facility] Potassium [Moles/volume] in Serum or PlasmaOrdered By: Caryl Marie on 10-17-2023 Potassium [Moles/Vol] 4.0 mmol/L 3.5-5.1 [facility] RBC Auto (Bld) [#/Vol]Ordere d By: Caryl Marie on 10-17-2023 RBC (Bld) [#/Vol] 2.33 10*6/uL 3.90-5.60 [facility] RBC morphologyOrdered By: Chavo Marie on 10-17-2023 RBC morphology finding Nom (Bld) N/A [facility] Red blood cell stomatocyte d etectionOrdered By: Caryl Marie on 10-17-2023 Stomatocytes LM Ql (Bld) [facility] Segmented neutrophils/100 WB C Manual cnt (Bld)Ordered By: Caryl Marie on 10-17-2023 Segmented neutrophils/100 WBC (Bld) 56 % 50-70 [facility] Serum or plasma anion gap de terminationOrdered By: Caryl Marie on 10-17-2023 Anion gap [Moles/Vol] 14.8 mmol/L 6.0-15.0 [facility] Sodium [Moles/volume] in Ser um or PlasmaOrdered By: Caryl Juanelio on 10-17-2023 Sodium [Moles/Vol] 139 mmol/L 136-[address] [facility] Troponin I High Sensitivityo n 10-17-2023 Troponin I High Sensitivity 35.1 pg/mL High 0.0-20.0 [facility] Comment on above: Result Comment: PERF ORMED BY: [facility] [address] [place] [address] PATHOLOGIST BEATER ENGINEER HELPER XAVI ZAIDI M.D. Performed By: #### H S TROP #### [address] Urea nitrogen [Mass/volume] in Serum or PlasmaOrdered By: Caryl Drakeelio on 10-17-2023 Urea nitrogen [Mass/Vol] 49 mg/dL 7-25 [facility] WBC Auto (Bld) [#/Vol]Ordere d By: Caryl Marie on 10-17-2023 WBC (Bld) [#/Vol] 3.5 10*3/uL 4.1-10.[address] [facility] 36on 10-15-2023 36 Regarding labs on 10/14/2023: Karen Zuñiga, EMIGDIO Monson, GISELA Boyer, Make sure PCP gets these results, his Hgb is chronically around 7. Renal function is slightly better and potassium is perfect. BNP is elevated more than before- call and see how he is feeling, More short of breath? , More swelling? Is he eating and drinking yet? Ensure/ or boost supplements? Spoke with patient's . She said [facility] lab faxed results to Dr. Hernandes. She said patient is not c/o increased SOB or LE edema. Says he's eating and drinking fine now. He has follow up in December 2023, and saw his exterminator termite yesterday. Normal [facility] 36 Potassium continues to improve, Renal function stable- is not worsening BNP remains elevated- continue all CHF meds and regime. Normal [facility] 36on 10-14-2023 [facility] lab called to report a critical BNP of 4020. Prior BNP on 09/28 was 3551. [facility] Telephoneon 10-14-2023 Telephone [id number] Sandip Broussard 1940 M Date Provider Department Center 10/14/2023 KAREN SHEIKH [facility] Family History Problem Relation Age of Onset Hypertension Mother Stroke Father Breast cancer Sister Family Status - Relation Status Age at Mother Father Sister [facility] Ambulatory Visit Summaryon 0 10-13-2023 Ambulatory [...] in adult Former smoker Hyperlipidemia, unspecified Other exterminator termite (current) drug therapy Your Care Team Attending Physician - Jacquelin Hernandes MD Primary Care Physician - Jacquelin Hernandes MD This Is Your Medications List Misc Prescription (Freestyle Carmen 2 Flash Glucose Monitoring 14 Day System (Sensor)) Misc Prescription (Freestyle Carmen Flash 2 Glucose Monitoring 14 Day System ([place])) Misc Prescription (Misc DME Prescription) aspirin (aspirin [...] Follow-Up Appointments 2023 3:30 PM EDT With: Mick SEN, Jacquelin Davies Where: [facility] Invalid Interpretation Code [address] [place] [address]- \.br\ Friday 2:00 PM EDT \.br\ With:\.br\ Where: [facility] Office Visiton 10-10-2023 Follow-up visit [id number] Sandip Broussard 1940 M Date Provider Department Center 10/10/2023 KAREN SHEIKH [facility] Family History Problem Relation Age of Onset Hypertension Mother Stroke Father Breast cancer Sister Family Status - Relation Status Age at Mother Father Sister Level of Service:38855 [place] OFFICE/OUTPATIENT ESTABLISHED LOW MDM 20 MIN Normal [facility] ED Note-Physicianon 10-09-19 24 ED Note-Physician [id number] .00TIFF Normal [facility] Consultation Noteon 10-08-19 Consultation Note [id number] .00TIFF Normal [facility] ED Note-Physicianon 10-03-19 24 ED Note-Physician [id number] .00TIFF Normal [facility] ED Note-Physician [id number] .00TIFF Normal [facility] Lab Reportson 09-30-2023 Lab Reports [id number] .00TIFF Normal [facility] RAD - MISCon 09-30-2023 RAD - MISC [id number] .00TIFF [facility] Office Visiton 09-29-2023 Follow-up visit [id number] Sandip Broussard 1940 M Date Provider Department Center 09/29/2023 SHENG BERGMAN DONNIE [facility] Family History Problem Relation Age of Onset Hypertension Mother Stroke Father Breast cancer Sister Family Status - Relation Status Age at Mother Father Sister Level of Service:48365 [place] OFFICE/OUTPATIENT ESTABLISHED HIGH MDM 40 MIN [facility] 36on 09-26-2023 36 Patient's made aware to hold bumex over the weekend and have repeat labs before 3:15pm apt with Dr. Gomez on Friday, 09/28. Orders faxed to [facility]. [facility] 36on 09-23-2023 36 [facility] lab called with critical lab values: ProBNP is 2604, BUN is 87. [facility] Ambulatory Visit Summaryon 0 09-22-2023 Ambulatory Visit Summary SANDIP BROUSSARD :1940 Visit Date:09/22/2023 Ambulatory Visit Instructions Your Diagnosis Incomplete bladder emptying BPH with obstruction/lower urinary tract symptoms Penile cyst Your Care Team Attending Physician - HI SEN, Elena Butts Primary Care Physician - Jacquelin Hernandes MD Referring Physician - Jacquelin Hernandes MD This Is Your Medications List terazosin (terazosin 5 mg Cap) Contact prescribing physician if questions or concerns Misc Prescription (Freestyle Carmen 2 Flash Glucose Monitoring 14 Day System (Sensor)) Misc Prescription (Freestyle Carmen Flash 2 Glucose Monitoring 14 Day System ([place])) Misc Prescription (Misc DME Prescription) aspirin (aspirin [...] Friday 1:15 PM EDT With: Mick SEN, Jacquelin Davies Where: [facility] [place] Normal [address] [place] [address]- \.br\ You Need to Schedule the Following Appointments\.br\ Follow Up with HI SEN, Elena Butts, URL When: \.br\ Comments:\.br\ 6 mos (no labs)\.br\ Where:\.br\ [facility] [address]\.br\ [place] [address]-\.br\ [phone]\.br\ Medications\.br\ What How Much When Why Instructions\.br\ Changed terazosin (terazosin 5 mg Cap) 1 Capsules By Mouth Once a day (at bedtime) Pickup at [facility] [id number]\.br\ Unchanged aspirin (aspirin 81 mg Oral EC [...] Flash 2 Glucose Monitoring 14 Day System ([place])) See instructions Primary 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 \.br\ Take piag-qig-lqkwkxo and prescription medicines only as told by your health care provider. Avoid certain medicines, such as decon [facility] Patient Educationon 09-22-20 24 Patient Education Urology Acute Urinary Retention, [...] these instructions at home: Medicines ? Take kwfz-dfq-oznrpuj and prescription medicines only as told by [...] provider. Document Revised: 04/04/2021 Document Reviewed: 04/04/2021 [employer] Patient Education ? 2022 [employer]. Normal [facility] 36on 09-16-2023 36 Pro BNP is 4001 Normal [facility] 36 Patient and his stopped by the office today to give you an update. His stomach is very red with dry skin. I called Dr. Hernandes and he recommended an OTC steroid cream. He said if it didn't improve to call his office to see an MASH FILTER CLOTH CHANGER. Patient and his made aware. His weight was 212# today in the office. Would you like him to change increased dose of bumex and potassium? I also ordered BNP since I couldn't find a recent one for him. Please advise. Thanks. [facility] RAD - MISCon 09-12-2023 [facility] [id number] .00TIFF [facility] 36on 09-11-2023 36 Patient's alonzo cal to make you aware that he's gained [...] spironolactone 25mg daily. Any recommendations? Please advise. [facility] Telephoneon 09-11-2023 Telephone [phone] Sandip Broussard 1940 M Date Provider Department Center 09/11/2023 SHENG BERGMAN Family History Problem Relation Age of Onset Hypertension Mother Stroke Father Breast cancer Sister Family Status - Relation Status Age at Mother Father Sister [facility] Retail - Clinical Noteon Retail - Clinical Note [id number] .00TIFF [facility] Office Visiton 08-29-2023 Follow-up visit [id number] Sandip Broussard 1940 Date Provider Department Center 08/29/2023 SHENG BERGMAN Family History Problem Relation Age of Onset Hypertension Mother Stroke Father Breast cancer Sister Family Status - Relation Status Age at Mother Father Sister Level of Service:77415 [place] OFFICE/OUTPATIENT ESTABLISHED LOW MDM 20 MIN [facility] Basic Metabolic Profon 08-19 Anion gap [Moles/Vol] 13 mmol/L Normal 9-17 [facility] Comment on above: Performed By: #### C DP, BMP #### [facility] [address] [place], [place] [id number] [place]: Josie Castro MD BUN/CRE Ratio 17 Normal 9-20 [facility] Comment on above: Performed By: #### C DP, BMP #### [facility] [address] [place], [place] [id number] [place]: Josie Castro MD Calcium [Mass/Vol] 8.9 mg/dL Normal 8.6-10.4 [facility] Comment on above: Performed By: #### C DP, BMP #### [facility] [address] [place], [place] [address] [place]: Josie Castro MD Chloride [Moles/Vol] 101 mmol/L Normal 98-107 [facility] Comment on above: Performed By: #### C DP, BMP #### [facility] [address] [place], [place] [address] [place]: Josie Castro MD CO2 [Moles/Vol] 29 mmol/L Normal 20-31 [facility] Comment on above: Performed By: #### C DP, BMP #### [facility] [address] [place], [place] [address] [place]: Josie Castro MD Creatinine [Mass/Vol] 1.6 mg/dL High 0.7-1.2 [facility] Comment on above: Performed By: #### C DP, BMP #### [facility] [address] [place], [place] [id number] [place]: Josie Castro MD GFR/1.73 sq M.predicted among [...] By: #### C DP, BMP #### [facility] [address] [place] [address] [place]: Josie Castro MD Glucose [Mass/Vol] 103 mg/dL High 70-99 [facility] Comment on above: Performed By: #### C DP, BMP #### [facility] [address] [place] [address] [place]: Josie Castro MD Potassium [Moles/Vol] 4.3 mmol/L Normal 3.7-5.3 [facility] Comment on above: Performed By: #### C DP, BMP #### [facility] [address] [place] [address] [place]: Josie Castro MD Sodium [Moles/Vol] 143 mmol/L Normal 135-144 [facility] Comment on above: Performed By: #### C DP, BMP #### [facility] [address] [place] [address] [place]: Jsoie Castro MD Urea nitrogen [Mass/Vol] 27 mg/dL High 8-23 [facility] Comment on above: Performed By: #### C DP, BMP #### [facility] [address] [place] [address] [place]: Josie Castro MD CBC with Diffon 08-19-2023 Abs. Bands 0.07 k/uL Normal 0.0-1.0 [facility] Comment on above: Performed By: #### C DP, BMP #### [facility] [address] [place] [phone] [place]: Josie Castro MD Abs. Basophil Normal 0.0-0.2 [facility] Comment on above: Performed By: #### C DP, BMP #### [facility] [address] [place] [id number] [place]: Josie Castro MD Abs.Imm.Granulocyte Normal 0.00-0.30 [facility] Comment on above: Performed By: #### C DP, BMP #### [facility] [address] [place] [address] [place]: Josie Castro MD Abs.Neutrophil (Seg) 0.74 k/uL Low 2.1-6.5 [facility] Comment on above: Performed By: #### C DP, BMP #### [facility] [address] [place] [address] [place]: Josie Castro MD Bands 3 % Normal 0-10 [facility] Comment on above: Performed By: #### C DP, BMP #### [facility] [address] [place] [address] [place]: Josie Castro MD Basophil Normal 0-2 [facility] Comment on above: Performed By: #### C DP, BMP #### [facility] [address] [place] [id number] [place]: Josie Castro MD Eosinophils (Bld) [#/Vol] 0.02 10*3/uL Normal 0.0-0.4 [facility] Comment on above: Performed By: #### C DP, BMP #### [facility] [address] [id number] [place]: Josie Castro MD Eosinophils/100 WBC (Bld) 1 % Normal 0-5 [facility] Comment on above: Performed By: #### C DP, BMP #### [facility] [address] [place], [place] [id number] [place]: Josie Castro MD Immature Granulocyte Normal 0 [facility] Comment on above: Performed By: #### C DP, BMP #### [facility] [address] [place], [place] [id number] [place]: Josie Castro MD Lymphocytes (Bld) [#/Vol] 1.03 10*3/uL Normal 1.0-4.8 [facility] Comment on above: Performed By: #### C DP, BMP #### [facility] [address] [place] [address] [place]: Josie Castro MD Lymphocytes/100 WBC (Bld) 45 % High 13-44 [facility] Comment on above: Performed By: #### C DP, BMP #### [facility] [address] [id number] [place]: Josie Castro MD Monocytes (Bld) [#/Vol] 0.44 10*3/uL Normal 0.0-1.0 [facility] Comment on above: Performed By: #### C DP, BMP #### [facility] [address] [place] [address] [place]: Josie Castro MD Monocytes/100 WBC (Bld) 19 % High 5-9 [facility] Comment on above: Performed By: #### C DP, BMP #### [facility] [address] [place] [address] [place]: Josie Castro MD Morphology Edmundo (Bld) [Interp] Decreased Platelets Normal [facility] Comment on above: Result Comment: FEW LARGE PLATELETS Manual Differential Performed MODERATE ANISOCYTOSIS Performed By: #### C DP, BMP #### [facility] [address] [place] [address] [place]: Josie Castro MD Neutrophil (Seg) 32 % Low 39-75 [facility] Comment on above: Performed By: #### C DP, BMP #### [facility] [address] [place] [address] [place]: Josie Castro MD Erythrocyte distribution width (RBC) [Ratio] 22.3 % High 12.1-15.2 [facility] Comment on above: Performed By: #### C DP, BMP #### [facility] [address] [place] [address] [place]: Josie Castro MD Hematocrit (Bld) [Volume fraction] 24.6 % Low 41.0-53.0 [facility] Comment on above: Performed By: #### C DP, BMP #### [facility] [address] [place] [address] [place]: Josie Castro MD Hemoglobin (Bld) [Mass/Vol] 7.8 g/dL Critically low 13.5-17.5 [facility] Comment on above: Performed By: #### C DP, BMP #### [facility] [address] [place] [address] [place]: Josie Castro MD MCH (RBC) [Entitic mass] 31.0 pg Normal 26.0-34.0 [facility] Comment on above: Performed By: #### C DP, BMP #### [facility] [address] [place] [address] [place]: Josie Castro MD MCHC (RBC) [Mass/Vol] 31.7 g/dL Normal 31.0-37.0 [facility] Comment on above: Performed By: #### C DP, BMP #### [facility] [address] [place] [address] [place]: Josie Castro MD MCV (RBC) [Entitic vol] 97.6 fL Normal 80.0-100.0 [facility] Comment on above: Performed By: #### C DP, BMP #### [facility] [address] [place] [address] (353) [place]: Josie Castro MD Platelet mean volume (Bld) [Entitic vol] 15.2 fL High 6.0-12.0 [facility] Comment on above: Performed By: #### C DP, BMP #### [facility] [address] [place] [address] ([phone] [place]: Josie Castro MD Platelets (Bld) [#/Vol] 71 10*3/uL Low 140-450 [facility] Comment on above: Performed By: #### C DP, BMP #### [facility] [address] [place] [address] (087) [place]: Josie Castro MD RBC (Bld) [#/Vol] 2.52 10*6/uL Low 4.50-5.90 [facility] Comment on above: Performed By: #### C DP, BMP #### [facility] [address] [place] [address] (832) [place]: Josie Castro MD WBC (Bld) [#/Vol] 2.3 10*3/uL Critically low 3.5-11.0 [facility] Comment on above: Performed By: #### C DP, BMP #### [facility] [address] [place] [address] [place]: Josie Castro MD [facility] 08-04-[address] 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 Created By: Puneet Mcelroy Date: July 29, 2023 Method: Phone call Type: Outbound Duration (min): 12 Outcome: Case discussion Contact Type: printing services coordinator Contact Name: Puneet Mcelroy Notes: TCM#5- spoke with spouse, see ft summary note. Created By: Puneet Mcelroy Date: July 22, 2023 Method: Phone call Type: Outbound Duration (min): 2 Outcome: Case discussion Contact Type: printing services coordinator Contact Name: Puneet Mcelroy Notes: TCM##4-wgt- Spoke with spouse Nicki for TCM/wgt progrtam call status update, see ft sumamry note. Created By: Puneet Mcelroy Date: July 17, 2023 Method: Phone call Type: Outbound Duration (min): 6 Outcome: Case discussion Contact Type: printing services coordinator Contact Name: Puneet Mcelroy Notes: TCM#3-wgt, spoke with spouse, Nicki for tcm call status update, see ft summary note. Created By: Puneet Mcelroy Date: July 14, 2023 Method: Phone call Type: Inbound Duration (min): 2 Outcome: Case discussion Contact Type: Spouse Contact Name: Nicki Notes: TCM#2/wgt- Spoke with spouse Nicki for TCM/wgt, see ft summary note. Crea (more content not included)... [facility] Lab Reportson 07-30-2023 Lab Reports [id number] .00TIFF [facility] Population Healthon 07-29-19 Population Health Case Information Case Priority: None Programs: -- Referral Source: Esl Teacher Referral Reason: Care coordination Case Type: Transition Care Management Risk Score: -- Case Status: Enrolled (July 11, 2023) Date Assigned: July 11, 2023 Assigned By: Puneet Mcelroy Date Enrolled: July 11, 2023 Assigned Primary Personnel: Puneet Mcelroy Assigned Secondary Personnel: -- Case Physician: Mick SEN, Jacquelin Welch Ongoing AP (angina pectoris) 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 Created By: Puneet Mcelroy Date: July 22, 2023 Method: Phone call Type: Outbound Duration (min): 2 Outcome: Case discussion Contact Type: printing services coordinator Contact Name: Puneet Mcelroy Notes: TCM##4-wgt- Spoke with spouse Nicki for TCM/wgt progrtam call status update, see ft sumamry note. Created By: Puneet Mcelroy Date: July 17, 2023 Method: Phone call Type: Outbound Duration (min): 6 Outcome: Case discussion Contact Type: printing services coordinator Contact Name: Puneet Mcelroy Notes: TCM#3-wgt, [...] (min): 1 Outcome: Left message-voicemail Contact Type: printing services coordinator Contact Name: Puneet Mcelroy Notes: TCM#2/wgt check- Attempted to contact patient for TCM/wgt status update, no answer, LM for retturn call. Created By: Puneet Mcelroy Date: July 11, 2023 Method: Phone call Type: Outbound Duration (more content not included)... [facility] Retail - Clinical Noteon Retail - Clinical Note [id number] .00TIFF [facility] Population Healthon 07-22-20 Population Health Case Information Case Priority: None Programs: -- Referral Source: Esl Teacher Referral Reason: Care coordination Case Type: Transition Care Management Risk Score: -- Case Status: Enrolled (July 11, 2023) Date Assigned: July 11, 2023 Assigned By: Puneet Mcelroy Date Enrolled: July 11, 2023 Assigned Primary Personnel: Puneet Mcelory Assigned Secondary Personnel: -- Case Physician: Jacquelin Hernandes MD Ongoing AP (angina pectoris) 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 Chronic kidney disease, stage 4 (severe) Chronic respiratory failure with hypoxia Chronic systolic congestive heart failure Follicular [facility] Hospital discharge follow-up Immunodeficiency due to [...] Flash 2 Glucose Monitoring 14 Day System ([place]), See Instructions glipiZIDE 5 mg ER Tab, [...] Family history is negative Screenings and Assessments 12/15/23 14:21:00 Result Name Value Comment Phone Call [...] (min): 2 Outcome: Case discussion Contact Type: printing services coordinator Contact Name: Puneet Mcelroy Notes: TCM##4-wgt- Spoke with spouse Nicki for TCM/wgt progrtam call status update, see ft sumamry note. Created By: Puneet Mcelroy Date: July 17, 2023 Method: Phone call Type: Outbound Duration (min): 6 Outcome: Case discussion Contact Type: printing services coordinator Contact Name: Puneet Mcelroy Notes: TCM#3-wgt, [...] (min): 1 Outcome: Left message-voicemail Contact Type: printing services coordinator Contact Name: Puneet Mcelroy Notes: TCM#2/wgt check- Attempted to contact patient for TCM/wgt status update, no answer, LM for retturn call. Created By: Puneet Mcelroy Date: July 11, 2023 Method: Phone call Type: Outbound Duration (min): 8 Outcome: Case discussion Contact Type: printing services coordinator Contact Name: Puneet Mcelroy Notes: TCM#1- Spoke with spouse for initial TCM program call status update, see ft summary note. Created By: Puneet Mcelroy [facility] Office Visiton 07-17-2023 Follow-up visit [id number] Sandip Broussard 1940 M Date Provider Department Center 07/17/2023 [facility] Family History Problem Relation Age of Onset Hypertension Mother Stroke Father Breast cancer Sister Family Status - Relation Status Age at Mother Father Sister Level of Service:44604 [place] OFFICE/OUTPATIENT ESTABLISHED MOD MDM 30 MIN Reason for Visit and Comments: Hospital Follow-up [832] [facility] Population Healthon 07-17-20 Population Health Case Information Case Priority: None Programs: -- Referral Source: Esl Teacher Referral Reason: Care coordination Case Type: Transition Care Management Risk Score: -- Case Status: Enrolled (July 11, 2023) Date Assigned: July 11, 2023 Assigned By: Puneet Mcelroy Date Enrolled: July 11, 2023 Assigned Primary Personnel: Puneet Mcelroy Assigned Secondary Personnel: -- Case Physician: Jacquelin Hernandes MD Ongoing AP (angina pectoris) 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 Chronic kidney disease, stage 4 (severe) Chronic respiratory failure with hypoxia Chronic systolic congestive heart failure Follicular [facility] discharge follow-up Immunodeficiency due to drugs [...] Flash 2 Glucose Monitoring 14 Day System ([place]), See Instructions glipiZIDE 5 mg ER Tab, [...] (min): 6 Outcome: Case discussion Contact Type: printing services coordinator Contact Name: Puneet Mcelroy Notes: TCM#3-cornelt, spoke with spouseNicki for tcm call status update, see ft [...] (min): 1 Outcome: Left message-voicemail Contact Type: printing services coordinator Contact Name: Puneet Mcelroy Notes: TCM#2/wgt check- Attempted to contact patient for TCM/wgt status update, no answer, LM for retturn call. Created By: Puneet Mcelroy Date: July 11, 2023 Method: Phone call Type: Outbound Duration (min): 8 Outcome: Case discussion Contact Type: printing services coordinator Contact Name: Puneet Mcelroy Notes: TCM#1- Spoke with spouse for initial TCM program call status update, see ft summary note. Created By: Puneet Mcelroy [facility] ED Note-Physicianon 07-16-20 23 ED Note-Physician [id number] .00TIFF [facility] Outside Hospital Correspo ndenceon 07-16-2023 Outside Hospital Correspondence [id number] .00TIFF [facility] Physician Referralon 023 Physician Referral [id number] [facility] RAD - MISCon 07-16-2023 RAD - MISC [id number] .00TIFF [facility] Family Medicine Office/Clini c Noteon 07-15-2023 Family Medicine Office/Clinic Note HPI Staff Sandip is an 82 year old male presenting for follow up anemia Hospital: [place] Admission date: 07/08 Discharge date: Symptoms the [...] documented 3008F (more content not included)... Normal [facility] Comment on above: Result Comment: Elec tronically Signed By: Mick SEN, Jacquelin Leija.br\Date and Time Signed: 07/15/23 14:28 EST Patient [...] numbers. This can be done either in [place] ([place] or metric measurements. Note that charts and online BMI calculators are available to help you find your BMI quickly and easily without having to do these calculations yourself. To calculate your BMI in [place] ([place] measurements: 1. Measure your weight in [...] for Disease Control and Prevention: www.cdc.gov ? [place] [employer]: www.heart.org ? National Heart, Lung, and Blood Tamiment: www.nhlbi.nih.gov Summary ? Body mass index (BMI) is a number that is calculated from a person's weight and height. ? BMI may help estimate how much of a person's weight is composed of fat. BMI can help identify those who may be at higher risk for certain medical problems. ? BMI can be measured using Russian measurements or metric measurements. ? BMI charts are used to identify whether you are underweight, normal weight, overweight, or obese. This information is not intended to replace advice given to you by your health care provider. Make sure you discuss any questions you have with your health care provider. Document Revised: 04/05/2020 Document Reviewed: 02/11/2020 [employer] Patient Education ? 2022 [employer]. [facility] Health 07-14-[address] [facility] Case Information Case Priority: None Programs: -- Referral Source: Esl Teacher Referral Reason: Care coordination Case Type: Transition Care Management Risk Score: -- Case Status: Enrolled (July 11, 2023) Date Assigned: July 11, 2023 Assigned By: Puneet Mcelroy Date Enrolled: July 11, 2023 Assigned Primary Personnel: Puneet Mcelroy Assigned Secondary Personnel: -- Case Physician: Jacquelin Hernandes MD Ongoing AP (angina pectoris) Bone marrow [...] refills, Still taking, not as prescribed: Per [facility] D/C 07/10, patient to take 1 mg QAM colchicine 0.6 mg Tab, 0.6 mg= 1 tab(s), Oral, TID, 1 refills, Not taking: per [facility] d/c 07/10, do not take Farxiga 10 mg oral tablet, 10 mg= 1 tab(s), Oral, Daily, 1 refills febuxostat, 40 mg, Oral, Daily Freestyle Carmen 2 Flash Glucose Monitoring 14 Day System ([place]), See Instructions Freestyle Carmen Flash 2 Glucose Monitoring 14 Day System ([place]), See Instructions glipiZIDE 5 mg ER Tab, 5 mg= 1 tab(s), Oral, BID, 1 refills lisinopril 10 mg Tab, See Instructions, Still taking, not as prescribed: per [facility] d/c 07/10, dose decreased, take 2.5 mg QD metolazone 2.5 mg Tab, 2.5 mg= 1 tab(s), Oral, Daily, 1 refills, Not taking: per [facility] d/c 07/10- do not take metoprolol 25 mg ER Tab, 12.5 mg= 0.5 tab(s), Oral, Daily, 1 refills Misc DME Prescription, See Instructions omeprazole 40 mg Cap-DR, 40 mg= 1 cap(s), Oral, Daily, 1 refills Potassium Chloride (Iro-Ivsp-Iuq M20) 20 mEq oral tablet, extended release, 20 mEq= 1 tab(s), Oral, BID, 1 refills, Not taking: per [facility] d/c 07/10, do [...] (min): 1 Outcome: Left message-voicemail Contact Type: printing services coordinator Contact Name: Puneet Mcelroy Notes: TCM#2/wgt check- Attempted to contact patient for TCM/wgt status update, no answer, LM for retturn call. Created By: Puneet Mcelroy Date: July 11, 2023 Method: Phone call Type: Outbound Duration (min): 8 Outcome: Case discussion Contact Type: printing services coordinator Contact Name: Puneet Mcelroy Notes: TCM#1- Spoke with spouse for initial TCM program call status update, see ft summary note. Created By: Puneet Mcelroy [facility] Pre-Visit Planningon 023 Pre-Visit Planning - From: Karen Frye To: Jacquelin Hernandes MD; Sent: 07/11/2023 11:03:29 EST Subject: Pre-Visit Planning Due Date/Time: 07/11/2023 11:03:00 EST Caller Name: SANDIP BROUSSARD; Caller Number: , Nm Dr. Hernandes. During a pre-visit planning chart review, I [...] feel free to contact me at extension [phone]. Thank you! Karen Frye LPN From: Jacquelin Hernandes MD To: Karen Frye; Sent: 07/14/2023 12:29:52 EST Subject: RE: Pre-Visit Planning Caller Name: SANDIP BROUSSARD; Caller Number: Kofi , M -Immunodeficiency due to drugs Normal [address] [place] [address] Pre-Visit Planning - From: Karen Frye To: Jacquelin Hernandes MD; Sent: 07/11/2023 10:52:44 EST Subject: Pre-Visit Planning Due Date/Time: 07/11/2023 10:52:00 EST Caller Name: SANDIP BROUSSARD; Caller Number: Kofi , Tobias Nm Dr. Hernandes. During a pre-visit planning chart review, I [...] feel free to contact me at extension [phone]. Thank you! Karen Frye LPN From: Jacquelin Hernandes MD To: Karen Frye; Sent: 07/14/2023 12:28:56 EST Subject: RE: Pre-Visit Planning Caller Name: SANDIP BROUSSARD; Caller Number: Kofi , M -Chronic respiratory failure with hypoxia Normal [address] [facility] Pre-Visit Planning - From: Karen Frye To: Jacquelin Hernandes MD; Sent: 07/11/2023 10:36:38 EST Subject: Pre-Visit Planning Due Date/Time: 07/11/2023 10:36:00 EST Caller Name: SANDIP BROUSSARD; Caller Number: H , M Nm Dr. Hernandes. During a pre-visit planning chart review, I [...] . Thank you! Karen Frye LPN From: Jacquelin Hernandes MD To: Karen Frye; Sent: 07/14/2023 12:27:12 EST Subject: RE: Pre-Visit Planning Caller Name: SANDIP BROUSSARD; Caller Number: Kofi , M -Morbid obesity Normal [facility] Population [facility] 07-11-20 Population Health Case Information Case Priority: None Programs: -- Referral Source: Esl Teacher Referral Reason: Care coordination Case Type: Transition Care Management Risk Score: -- Case Status: Enrolled (July 11, 2023) Date Assigned: July 11, 2023 Assigned By: Puneet Mcelroy Date Enrolled: July 11, 2023 Assigned Primary Personnel: Puneet Mcelroy Assigned Secondary Personnel: -- Case Physician: Mick SEN, Jacquelin Welch Ongoing AP (angina pectoris) Bone marrow [...] refills, Still taking, not as prescribed: Per [facility] D/C 07/10, patient to take 1 mg QAM colchicine 0.6 mg Tab, 0.6 mg= 1 tab(s), Oral, TID, 1 refills, Not taking: per [facility] d/c 07/10, do not take Farxiga 10 mg oral tablet, 10 mg= 1 tab(s), Oral, Daily, 1 refills febuxostat, 40 mg, Oral, Daily Freestyle Carmen 2 Flash Glucose Monitoring 14 Day System (Sensor), See Instructions Freestyle Carmen Flash 2 Glucose Monitoring 14 Day System ([place]), See Instructions glipiZIDE 5 mg ER Tab, 5 mg= 1 tab(s), Oral, BID, 1 refills lisinopril 10 mg Tab, See Instructions, Still taking, not as prescribed: per [facility] d/c 07/10, dose decreased, take 2.5 mg QD metolazone 2.5 mg Tab, 2.5 mg= 1 tab(s), Oral, Daily, 1 refills, Not taking: per [facility] d/c 07/10- do not take metoprolol 25 mg ER Tab, 12.5 mg= 0.5 tab(s), Oral, Daily, 1 refills Misc DME Prescription, See Instructions omeprazole 40 mg Cap-DR, 40 mg= 1 cap(s), Oral, Daily, 1 refills Potassium Chloride (Eab-Djvr-Nqd M20) 20 mEq oral tablet, extended release, 20 mEq= 1 tab(s), Oral, BID, 1 refills, Not taking: per [facility] d/c 07/10, do [...] scheduled? yes, TCM f/u with PCP, Dr. Hernandes 07/15 @ 6512 Did you understand your discharge instructions? yes [...] with patient: (more content not included)... Normal [facility] 36on 05-28-2023 36 Wrong dosage Normal [facility] RAD - MISCon 05-13-2023 RAD - [facility] [id number] .00TIFF Normal [facility] Family Medicine Office/Clini c Noteon 04-21-2023 [...] His last blood transfusion was today at [facility]. He was seen by his oncologist last week and the week before. He is seeing Dr. Humphrey in [place]. His oncologist is keeping him on a [...] with voice recognition artificial intelligence software, specifically Pureshield, PlanZap and or Dextrys. Substitutions may have occurred due to the inherent limitations of voice recognition and artificial intelligence software. ATTESTATION: Documentation services were performed after patient or guardian consented to allow [employer] to record this visit. [facility]IRGEN medical laboratory specialist and provider reviewed before signing. VIRGEN: [...] Historical No (more content not included)... Normal [facility] Comment on above: Result Comment: Elec tronically Signed By: Jacquelin Hernandes MD\.br\Date and Time Signed: 04/21/23 10:37 EDT\.br\Electronically Co-Signed By: Itzel Morrow.br\Date and Time Co-Signed: 04/16/23 16:56 EDT Consent for Flu Vaccineon Consent for Flu Vaccine [id number] .[id number]:127 Normal [facility] Ambulatory Visit Summaryon 0 04-16-2023 Ambulatory Visit Summary SANDIP BROUSSARD :1940 Visit Date:04/16/2023 Ambulatory Visit Instructions Your Diagnosis Primary hypertension Type 2 diabetes mellitus with diabetic nephropathy, 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 BMI 36.0-36.9,adult Class 1 obesity due to excess calories in adult Your Care Team Attending Physician - Jacquelin Hernandes MD Primary Care Physician - Jacquelin Hernandes MD This Is Your Medications List Misc Prescription (Freestyle Carmen 2 Flash Glucose Monitoring 14 Day System (Sensor)) Misc Prescription (Freestyle Carmen Flash 2 Glucose Monitoring 14 Day System ([place])) Misc Prescription (Misc DME Prescription) aspirin (aspirin [...] 40 mg Cap-DR) potassium chloride (Potassium Chloride (Gyo-Gbqp-Toc M20) 20 mEq oral tablet, extended release) [...] Follow-Up Appointments Friday 3:00 PM EST With: Jacquelin Hernandes MD Where: [facility] Normal [address] [place] [id number] \.br\ Medications\.br\ What How Much When Why [...] Flash 2 Glucose Monitoring 14 Day System ([place])) See instructions Primary hypertension Type 2 diabetes mellitus with diabetic nephropathy, without long-term current use of insulin Mixed hyperlipidemia Bone marrow failure Freestyle Carmen Flash Glucose Monitoring 14 Day System ([place]) \.br\ Unchanged Misc Prescription (Misc DME Prescription) See instructions One touch ultra blue test strips Use as directed to test sugars once a day \.br\ Unchanged omeprazole (omeprazole 40 mg Cap-DR) 1 Capsules By Mouth Every day\.br\ Unchanged potassium chloride (Potassium Chloride (Voq-Vimx-Azz M20) 20 mEq oral tablet, extended release) [...] of insulin\.br\ Urge incontinence\.br\ Urinary urgency\.br\ \.br\ [facility] 04-07-2023 Outside Labs [id number]#1 .00CD:127 Normal [facility] 03-20-2023 Outside Labs [id number]#1 .00CD:127 Normal [facility] Physician Orderon 03-19-2023 Physician Order [id number]# 1.00CD:127 Normal [facility] .Interpretation:on 3 HCV Ab IA Ql Comment Invalid Interpretation Code [facility] Comment on above: Result Comment: Not infected with HCV unless early or acute infection is suspected (which may be delayed in an immunocompromised individual), or other evidence exists to indicate HCV infection. Performed at: [facility] [id number] PhD Mingo Mckeon Performed By: #### 2 [id number], 4315860870, 5514791, 2970442381, 0453170273, 047866059, 6461774, 5916295216, 0137952, 3899095, 7824296, 7006692559, 2299381, 3717824, 4259512, 80786667, 9187225, 454698588, 4233774043, 53113767, 7563752, 9482071, 6431697863 ####[address] [place] [address] Comp panel: Leuk/Lym 364374m n 03-18-2023 Analysis and Gating Strategy Comment Invalid Interpretation Code [facility] Comment on above: Result Comment: 8 co tete analysis with CD45/SSC gating Technical-Analysis performed [place] [address] Director: Lisa Anguiano [facility] Performed By: #### 2 [id number], 2335606432, 6570843, 2611890098, 2242541021, 885567208, 4656244, 6922153533, 5314644, 7311944, 2661565, 3958193226, 9550259, 9051503, 4318239, 19884023, 3940699, 297868370, 0956129356, 09041680, 6531890, 3305751, 1644914027 ####[address] [place] [address] Annotation comment [Interpretation] Narrative Comment Invalid Interpretation Code [facility] Comment on above: Result Comment: If m onocytosis (absolute count >= 500/uL and >= 10% of leukocytes) persists for > 3 months without secondary etiologies identified, further evaluation of a myeloid neoplasm, such as chronic myelomonocytic leukemia, is warranted if clinically indicated. Recommend clinical correlation. Performed By: #### 2 234299651, 8335439737, 7691319, 0211291987, 7021424128, 386808079, 9594998, 7278227205, 1801536, 8020519, 2318128, 1709433216, 5595583, 1163688, 3023372, 63188667, 5181553, 908867215, 6886929457, 55149965, 0061615, 8892903, 4486757077 ####[address] [place] [address] Assessment of Leukocytes Comment Invalid Interpretation Code [facility] Comment on above: Result Comment: No [...] NK cells 22% Performed By: #### 2 562905813, 4871031019, 7750716, 6694422528, 5589060330, 662099169, 3085766, 1601358388, 4447948, 8076810, 0332119, 4043188799, 0322321, 7200089, 8802146, 44281538, 3398889, 481832096, 6064583308, 63234334, 8372852, 0049780, 8424561694 ####[address] [place] [id number] CLINICAL INFORMATION:FIND:PT: Comment Invalid Interpretation Code [facility] Comment on above: Result Comment: A re cent CBC was not available for review at the time this report was prepared. Performed By: #### 2 269553287, 9761769030, 3925119, 3125041135, 6473478396, 133754591, 5805719, 0605224822, 5580937, 3169679, 5178680, 5501763793, 5311129, 7785751, 0607462, 66690830, 8213447, 215115055, 2029930738, 65545818, 4684443, 3496658, 1942579638 ####[facility] [place] [address] Immunophenotyping study Comment Invalid Interpretation Code [facility] Comment on above: Result Comment: CD2 Normal CD3 Normal CD4 Normal CD5 Normal CD7 Normal CD8 Normal CD10 Normal CD11b Normal CD13 Normal CD14 Normal CD16 Normal CD19 Normal CD20 Normal CD33 Normal CD34 Normal CD38 Normal CD45 Normal CD56 See Text CD57 Normal CD117 Normal HLA-DR Normal KAPPA Normal LAMBDA Normal CD64 Normal Performed By: #### 2 401769351, 2004901082, 4638176, 5582972479, 6065323520, 936231500, 3176006, 6166576045, 1466091, 6062363, 7128856, 5466552759, 8701144, 3294850, 0627696, 14261477, 2864540, 364431927, 8101683442, 34351578, 8301561, 7716140, 5207811956 ####[facility] [address] [place] [address] Laboratory comment Edmundo (Report) Comment Invalid Interpretation Code [facility] Comment on above: Result Comment: Each antibody in this assay was utilized to assess for potential abnormalities of studied cell populations or to characterize identified abnormalities. This test was developed and its performance characteristics determined by [employer]. It has not been cleared or approved by the U.S. Food and Drug Administration. The FDA has determined that such clearance or approval is not necessary. This test is used for clinical purposes. It should not be regarded as investigational or for research. Performed at: -Y [facility] [facility], [place] [id number] [facility] Gonzalez Performed at: [facility] [employer] [facility] [facility], [place] [id number] [facility] Silvio Gonzalez Performed By: #### 2 878189191, 4675404297, 2270799, 8033419077, 7278701001, 651323306, 9694776, 8354161911, 5394237, 1566643, 5604416, 0045024670, 8043051, 5205572, 9742328, 14354805, 2548024, 416285695, 5210904758, 09498881, 3477566, 3796165, 4909464211 ####[facility] [place] [address] Pathologist interpretation (Unsp spec) [Interp] Comment Invalid Interpretation Code [facility] Comment on above: Result Comment: Aber rant monocytosis and left shifted neutrophils, see comment. Performed By: #### 2 387875305, 0599503297, 7353269, 9188556030, 6873023673, 700157527, 1742937, 2519139371, 6130270, 8350023, 4139323, 4335262239, 7764036, 3238362, 8807553, 28902399, 8601625, 978322410, 3276023433, 95062721, 7644191, 8734177, 2548411380 ####[place] [address] Pathologist name Comment Invalid Interpretation Code [facility] Comment on above: Result Comment: Esdras Alexandra M.D. Performed By: #### 2 853391684, 8556342550, 2486644, 3486265485, 5155051768, 331447001, 9151593, 9483786352, 3957990, 1198524, 5792259, 6152397570, 7591894, 8290115, 0205271, 79179834, 5479405, 242963522, 4035743897, 72122360, 2571452, 3258356, 8492155943 ####[place] [address] Specimen source Nom (Unsp spec) Comment Invalid Interpretation Code [facility] Comment on above: Result Comment: Joo pheral blood Performed By: #### 2 620237116, 1493671181, 7036138, 2568711496, 2643408187, 882308327, 8725710, 0760780052, 6822869, 2639427, 3654043, 8883740039, 0768671, 2123587, 1832638, 61462759, 3494733, 234065333, 5443751846, 78685062, 1886824, 8688157, 9444391093 ####[address] [place] [address] Viable cells/100 cells (Unsp spec) Comment Invalid Interpretation Code [facility] Comment on above: Result Comment: 84% Performed By: #### 2 643570512, 7044594945, 1424695, 3002803721, 1640901868, 463109037, 3856427, 6451508227, 6664914, 9439303, 0215737, 1433305420, 9917692, 0839645, 6850967, 53309187, 4842837, 631987749, 8397259477, 89060605, 7275191, 6597747, 6604946340 ####[facility] [address] [place] [address] Copper Lvlon 03-18-2023 Copper [Mass/Vol] 73 microgram/dL Invalid Interpretation Code 69-132 [facility] Comment on above: Result Comment: This test was developed and its performance characteristics determined by [facility]. It has not been cleared or approved by the Food and Drug Administration. Detection Limit = 5 Performed at: [facility] [id number] MD Ronaldo Dao Performed By: #### 2 712713156, 1527493032, 1521374, 9600217347, 7240470570, 464587845, 4512606, 9036435482, 6413386, 2951099, 0219189, 0813832285, 1534716, 8667021, 1655406, 46959980, 7396023, 124179653, 5662994458, 75695544, 6037155, 9072203, 8486821077 ####[address] [place] [address] Flow Interp 16 or moreon Flow Interp 16 or more Performed Invalid Interpretation Code [facility] Comment on above: Result Comment: Perf ormed at: -[facility] [facility], [place] [id number] [facility] Silvio Gonzalez Performed By: #### 2 975030772, 7502956655, 7201479, 6501603348, 1084736268, 759721392, 8512839, 4726033158, 4130902, 6341905, 9385899, 1565754249, 0481706, 6590061, 0319149, 52071159, 8825564, 333680590, 0624868829, 68778766, 2170116, 8710685, 9107089673 ####[facility] [address] [place] [address] Flow Marker, Firston 023 Flow Marker, First Performed Invalid Interpretation Code [facility] Comment on above: Result Comment: Perf ormed at: -[facility] [address] [facility] [place], [place] [id number] [facility] Anjen Performed By: #### 2 643964535, 3888082390, 1379346, 8829522756, 1653155618, 145853861, 8048809, 4355381416, 6133359, 9259076, 7797989, 7432217546, 5206861, 5052349, 1662890, 22118501, 5567922, 394616354, 2895902713, 54007512, 3696379, 0131450, 8415874649 ####[facility] [address] [place] [address] Flow Markers X 15on 03-18-20 23 Flow Markers X 15 Performed Invalid Interpretation Code [facility] Comment on above: Result Comment: Perf ormed at: -[facility] [address] [facility] [place], [place] [id number] [facility] Anjen Performed By: #### 2 125111781, 9726366735, 8960889, 2648117250, 8803383513, 974434066, 6303064, 5359148038, 5098625, 2769805, 5898134, 8621108076, 5167181, 5196858, 8247164, 48440421, 3023159, 438020525, 0094255336, 43227365, 6427400, 3561669, 2930306780 ####[facility] [address] [place] [place] [address] Flow Markers X 3on 3 Flow Markers X 3 Performed Invalid Interpretation Code [facility] Comment on above: Result Comment: Perf ormed at: -[facility] [address] [facility] [place], [place] [id number] [facility] Silvio Gonzalez Performed By: #### 2 890096607, 9635406943, 1171504, 0763850802, 2985996384, 148823018, 2229817, 8848363701, 8794679, 8777350, 4877922, 9537230060, 1473148, 1650656, 0760542, 87520488, 4185743, 552421773, 0560119531, 79328253, 6225348, 7790772, 8342374058 ####[address] [place] [address] Flow Markers X 5on 3 Flow Markers X 5 Performed Invalid Interpretation Code [facility] Comment on above: Result Comment: Perf ormed at: -[facility] [address] [facility] [place], [place] [id number] [facility] Gonzalez Performed By: #### 2 540955566, 6924330456, 0035818, 8378116531, 3568499806, 582033532, 9705228, 2023419591, 9887320, 6339755, 8834421, 5812587768, 0623898, 8272739, 3817873, 32206109, 3168367, 786764763, 4650754600, 11872856, 4428885, 8681843, 8960157080 ####[facility] [address] [address] HCV Antibody RFX to Quant PC Zach 03-18-2023 HCV IgG IA Ql Non-Reactive Invalid Interpretation Code Non Reactive [facility] Comment on above: Result Comment: Perf ormed at: [facility] [address] [place], [place] [id number] PhD Mingo Mckeon Performed By: #### 2 941861318, 2637325048, 4351243, 9645580780, 8122864498, 000511958, 6704146, 3027831468, 8142930, 3513198, 7668519, 2528047143, 3867162, 3428108, 3407679, 55876531, 3734522, 130210765, 3290944201, 19350606, 0427576, 8239671, 0300092874 ####[facility] [address] [place] [address] HIV Screen 4th Generation wR fxon 03-18-2023 HIV 1+2 Ab+HIV1 p24 Ag IA Ql Non-Reactive Invalid Interpretation Code Non Reactive [facility] Comment on above: Result Comment: HIV Negative HIV-1/HIV-2 antibodies and HIV-1 p24 antigen were NOT detected. There is no laboratory evidence of HIV infection. Performed at: [employer] [address] [place] [id number] PhD Mingo Mckeon Performed By: #### 2 666228630, 1763199787, 1207709, 5044527759, 9743542139, 176569588, 5768871, 4735854082, 9911681, 3343673, 9986333, 5139389369, 8417265, 7760155, 9601785, 53347955, 7780494, 763049729, 9989496257, 59924902, 6289989, 0850777, 2361348334 ####[facility] [address] [place] [address] Hep A IgMon 03-18-2023 HAV IgM IA Ql Negative Invalid Interpretation Code Negative [facility] Comment on above: Result Comment: Perf ormed at: [facility] [place], [place] [id number] PhD Mingo Mckeon Performed By: #### 2 654234744, 3252363907, 9823182, 9807194250, 2375568647, 447184829, 5384471, 2867341007, 0200098, 2421243, 6990097, 1031923168, 7691773, 1254723, 5932158, 43362968, 6369042, 134762571, 0327437162, 55983203, 9559667, 7697873, 1080297572 ####[facility] [address] [place] [address] Hep B Core Ab, IgMon 023 HBV core IgM IA Ql Negative Invalid Interpretation Code Negative [facility] Comment on above: Result Comment: Perf ormed at: [address] [id number] PhD Mingo Mckeon Performed By: #### 2 753497125, 6871292822, 1508826, 5829842671, 2403164492, 809038626, 4563588, 2374994998, 2487789, 2445922, 1509699, 3404975358, 6338209, 1939438, 7407007, 69551185, 2294732, 630786125, 9220091902, 04718958, 8916004, 8895336, 2513755049 ####[address] [address] Hep Bs Abon 03-18-2023 HBV surface Ab Ql (S) Non-Reactive Invalid Interpretation Code [facility] Comment on above: Result Comment: Non Reactive: Inconsistent with immunity, less than 10 mIU/mL Reactive: Consistent with immunity, greater than 9.9 mIU/mL Performed at: [address] [id number] PhD Mingo Mckeon Performed By: #### 2 188630803, 0892855573, 6522704, 5528234782, 5884941305, 772379666, 9039489, 1368751169, 5057521, 6408508, 0475135, 3979924406, 6616630, 0708213, 5378925, 61183227, 7173025, 878271037, 5399473341, 08124953, 1368071, 8770640, 5816264304 ####[address] [place] [address] Hep Bs Agon 03-18-2023 HBV surface Ag IA Ql Negative Invalid Interpretation Code Negative [facility] Comment on above: Result Comment: Perf ormed at: [facility] [address] [place], [place] [id number] PhD Mingo Mckeon Performed By: #### 2 605268748, 7025966757, 2879550, 2895841806, 8860505915, 174562533, 6803225, 1791696421, 4765335, 2868227, 7850166, 1732474851, 1531477, 6754519, 4031611, 47987820, 9863302, 878417958, 9479439761, 59577053, 9045755, 4769833, 4763153575 ####[facility] [address] [place] [address] Office Visiton 03-14-2023 Follow-up visit [id number] Sandip Broussard 1940 M Date Provider Department Center 03/14/2023 SHENG BERGMAN DONNIE Montoya Family History Problem Relation Age of Onset Hypertension Mother Stroke Father Breast cancer Sister Family Status - Relation Status Age at Mother Father Sister Level of Service:85723 [place] OFFICE/OUTPATIENT ESTABLISHED LOW MDM 20-29 MIN Reason for Visit and Comments: Follow-up [410191] - 6 MONTH FOLLOW UP Normal [facility] Family Medicine Office/Clini c Noteon 03-13-2023 Family Medicine Office/Clinic Note Chief Complaint follow up chronic care, had medicare wellness today HPI Staff Patient here for 2 month follow up multiple medical problems Had medicare wellness this afternoon w/ Puneet Recently referred to [facility] oncology Puneet noted BP 100/50 and he [...] oncologist tomorrow, 03/11/2023, at 1:00 PM at [facility]. The patient needs glucose test strips. [...] with voice recognition artificial intelligence software, specifically Pureshield, PlanZap and or Dextrys. Substitutions may have occurred due to the inherent limitations of voice recognition and artificial intelligence software. ATTESTATION: Documentation services were performed after patient or guardian consented to allow [employer] to record this visit. [facility] medical laboratory specialist and provider reviewed before signing. [facility]: [...] Flash 2 Glucose Monitoring 14 Day System ([place]), See Instructions glipiZIDE 5 mg ER Tab, [...] cap(s), Oral, Daily, 1 refills Potassium Chloride (Ovt-Tzuy-Hjr M20) 20 mEq oral tablet, extended release, 20 mEq= 1 tab(s), Oral, BID, 1 refills spironolact (more content not included)... Normal [facility] Comment on above: Result Comment: Elec tronically Signed By: Mick SEN, Jacquelin Davies\.br\Date and Time Signed: 03/13/23 12:59 EDT\.br\Electronically [...] had medicare wellness today Preferred Lab : [facility] Preferred Rad : [facility] Patient Counseled : Nutrition, Physical activity [...] Year : No No Transport to Med Appts/Meetings/Work/M eds/Necessities : No Afraid of Partner or Ex-partner [...] understanding with keep (more content not included)... [facility] Comment on above: Result Comment: Elec tronically Signed By: Jacquelin Hernandes MD.br\Date and Time Signed: 03/13/23 12:59 EDT\.br\Electronically Co-Signed By: Puneet Mcelroy.etienne\Date and Time Co-Signed: 03/10/23 15:23 EDT [place] 03-12-2023 Consent [id number] .00CD:127 [facility] Physician Orderon 03-12-2023 Physician Order [id number]#1 .00CD:127 [facility] .Manual Abson 03-11-2023 Basophils/Leukocytes Manual cnt (Bld) [Pure # fraction] 0.0 E9/L Normal 0.0-0.2 [facility] Comment on above: Performed By: #### 3 1318039, 9719847, 2902401, 4320834, 04984861 #### [facility] Laboratory [address] [place] [address] Eosinophils/Leukocyte s Manual cnt (Bld) [Pure # fraction] 0.1 E9/L Normal 0.0-0.5 [facility] Comment on above: Performed By: #### 3 2356533, 0953091, 2444216, 5874480, 15928809 #### [facility] [address] [place] [address] Lymphocytes/Leukocyte s Manual cnt (Bld) [Pure # fraction] 1.4 E9/L Normal 1.0-4.0 [facility] Comment on above: Performed By: #### 3 2780397, 8692448, 5073752, 2697167, 15260294 #### [facility] [address] [place] [address] Monocytes/Leukocytes Manual cnt (Bld) [Pure # fraction] 0.3 E9/L Normal 0.2-1.0 [facility] Comment on above: Performed By: #### 3 4984515, 2288081, 2142180, 2041474, 06639966 #### [facility] [address] [place] [address] Neutrophils/Leukocyte s Auto (Bld) [Pure # fraction] 3.4 E9/L Normal 2.0-7.5 [facility] Comment on above: Performed By: #### 3 0128905, 1138525, 4842837, 9453823, 39969569 #### [facility] [address] [place] [address] BB Draw & Holdon 03-11-2023 BB D&H Sample drawn for Blood Ba Normal [facility] Comment on above: Performed By: #### 3 6398730, 9185975, 4549510, 4368075, 95889382 #### [facility] [address] [place] [address] [place] [address] CBC w/ Auto Diffon Erythrocyte distribution width (RBC) [Ratio] 30.8 % High 10.9-14.2 [facility] Comment on above: Performed By: #### 3 2506260, 1336051, 8455151, 2040795, 18059042 #### [facility] [address] [place] [address] Hematocrit (Bld) [Volume fraction] 19.7 % Low 37.7-49.0 [facility] Comment on above: Performed By: #### 3 0240515, 6835941, 8870222, 9927823, 16313924 #### [facility] [address] [place] [address] Hemoglobin (Bld) [Mass/Vol] 6.7 g/dL Abnormal 13.5-17.5 [facility] Comment on above: Result Comment: Resu lts Called To Angle Mendoza/ ONC By GISELA And Read Back For Confirmation On 03/11/2023 17:00:17 EDT Results Verified By Repeat Analysis Performed By: #### 3 5002012, 2896562, 1221126, 1752280, 61851600 #### [facility] [address] [place] [address] MCH (RBC) [Entitic mass] 35.7 pg High 27.0-34.0 [facility] Comment on above: Performed By: #### 3 8521469, 2982097, 5241678, 6148260, 91239519 #### [facility] [address] [place] [address] MCHC (RBC) [Mass/Vol] 33.9 g/dL Normal 31.4-36.0 [facility] Comment on above: Performed By: #### 3 7300616, 7440028, 7051839, 7597232, 72483660 #### [facility] [address] [place] [address] MCV (RBC) [Entitic vol] 105.3 fL High 80.0-100.0 [facility] Comment on above: Performed By: #### 3 1948668, 1218299, 3513968, 8844460, 08076813 #### [facility] [address] [place] [address] Platelet mean volume (Bld) [Entitic vol] 12.4 fL High 6.4-10.8 [facility] Comment on above: Performed By: #### 3 7533392, 7036280, 8025705, 2707920, 74540676 #### [facility] [address] [place] [address] Platelets (Bld) [#/Vol] 93.0 E9/L Low 150.0-500.0 [facility] Comment on above: Performed By: #### 3 0793870, 4079311, 7764819, 0916189, 54290426 #### [facility] [address] [place] [address] RBC (Bld) [#/Vol] 1.9 E12/L Low 4.3-5.9 [facility] Comment on above: Performed By: #### 3 7366776, 1709805, 2202988, 9587469, 14431660 #### [facility] [address] [place], [place] [address] WBC corrected for nucl RBC Auto (Bld) [#/Vol] 5.8 E9/L Normal 4.0-11.0 [facility] Comment on above: Performed By: #### 3 3645392, 9436421, 7652402, 7831521, 14316522 #### [facility] [address] [place] [address] CMPon 03-11-2023 Albumin [Mass/Vol] 3.9 g/dL Normal 3.3-5.0 [facility] Comment on above: Performed By: #### 2 744746867, 6465120711, 7746987, 0522015951, 5886371581, 704063044, 8238934, 9272276789, 7290251, 7434835, 2862731, 5442544199, 0579791, 0718121, 9322011, 01634023, 2275633, 608576271, 0574171859, 92416242, 5314047, 9934303, 1373412183 ####[address] [place] [address] Albumin/Globulin (S) [Mass conc ratio] 1.1 Normal 1.1-2.2 [facility] Comment on above: Performed By: #### 2 506335500, 2644776944, 7162080, 1423307260, 5706238939, 900655133, 5783093, 3900742324, 2245593, 4243263, 5011256, 1027637186, 0647568, 1084092, 5220379, 43410047, 3376838, 864146979, 7979194765, 54967643, 6858094, 9930196, 1506767529 ####[address] [address] ALP [Catalytic activity/Vol] 72 Int._Unit/L Normal 21-98 [facility] Comment on above: Performed By: #### 2 219526488, 1589161445, 9104580, 8236240186, 2906045658, 056725329, 9148805, 5865502981, 6479775, 1678672, 6190849, 9027698207, 1906977, 6962656, 8436763, 52893900, 3726514, 151762695, 9078209396, 32402937, 5181494, 3895783, 4088031195 ####[address] [address] ALT No additional P-5'-P [Catalytic activity/Vol] 96 Int._Unit/L High 6-46 [facility] Comment on above: Performed By: #### 2 507609301, 9403737481, 6952435, 7263126121, 5615554492, 452592428, 6806771, 3239767271, 5241628, 0425820, 0949590, 2496352521, 8077430, 3053101, 9595773, 69198756, 1724823, 917278335, 9964824022, 46574846, 5125437, 9700685, 3574175203 ####[address] [place] [address] Anion gap [Moles/Vol] 13 mmol/L Normal 6-16 [facility] Comment on above: Performed By: #### 2 998520692, 2545979465, 9215232, 0140952046, 0148854868, 681434004, 9364463, 1363797739, 9707964, 1396866, 4088567, 3034171290, 0429717, 1223854, 0126507, 30382368, 6793609, 542297328, 6376772332, 39219467, 8335284, 9733463, 6850921246 ####[address] [address] AST [Catalytic activity/Vol] 39 Int._Unit/L Normal 5-43 [facility] Comment on above: Performed By: #### 2 111675162, 8245200532, 6362437, 2498154603, 6276896888, 230146065, 3041272, 5027869874, 1979608, 2987172, 9453683, 8738268701, 1120130, 8246650, 7314078, 00600404, 0141383, 949344953, 6775885604, 82207729, 7437497, 0402722, 4376410090 ####[address] [address] Bilirubin [Mass/Vol] 0.7 mg/dL Normal 0.0-1.1 [facility] Comment on above: Performed By: #### 2 582646370, 9556507668, 4768170, 1833826376, 4086574904, 900297925, 2320487, 7541822135, 3984009, 8394508, 5222817, 1045345920, 9816554, 2594425, 8407758, 22836470, 9778200, 214192752, 7569870248, 08565994, 6089322, 1409881, 0870727008 ####[address] [place] [address] Calcium [Mass/Vol] 9.5 mg/dL Normal 8.9-11.1 [facility] Comment on above: Performed By: #### 2 020319005, 5981889845, 3277155, 4021129012, 4997424781, 938956184, 7562266, 1782537061, 2710047, 3259551, 3677001, 5046493481, 9122313, 5735369, 3562754, 00822207, 3248903, 436417454, 4238890520, 99176848, 9522980, 4317605, 9211901967 ####[address] [address] Chloride [Moles/Vol] 102 mmol/L Normal 101-111 [facility] Comment on above: Performed By: #### 2 835549554, 9075916072, 8647579, 5907951266, 8295023064, 988017014, 9116022, 8250296117, 0495309, 8446145, 5547296, 3505515911, 8788036, 6550112, 9437155, 72504843, 6643924, 834632097, 8699308919, 50089445, 7388131, 3092242, 2138748384 ####[address] [address] CO2 [Moles/Vol] 32 mmol/L High 21-31 [facility] Comment on above: Performed By: #### 2 456104078, 7319118384, 2565565, 3369218710, 4403658348, 124653444, 2481123, 7899650731, 5799300, 2401412, 9395926, 3023905700, 1530422, 3570089, 1843353, 33435808, 7630940, 287155933, 3027275666, 18400974, 1184307, 2545022, 2095996731 ####[facility] [address] [place] [address] Creatinine [Mass/Vol] 1.9 mg/dL High 0.5-1.3 [facility] Comment on above: Performed By: #### 2 726772317, 1861641888, 2383984, 7936546051, 3506748537, 486953291, 2382013, 1204894883, 0817379, 3887384, 3144840, 0896957567, 7354153, 3354676, 8170878, 27505789, 7298197, 830375332, 2475195620, 88483225, 4546655, 9057585, 9034633974 ####[facility] [address] [place] [address] Globulin (S) [Mass/Vol] 3.5 g/dL Normal 1.4-4.0 [facility] Comment on above: Performed By: #### 2 892629735, 4229072130, 1024890, 2283183198, 1157069437, 914236113, 5967210, 4039110535, 6078007, 3822342, 9237644, 3895808862, 8371265, 8331936, 1855594, 84379304, 3214842, 943281095, 2612190455, 06733346, 3924067, 5291503, 9810023472 ####[facility] [address] [place] [address] Glucose [Mass/Vol] 181 mg/dL Normal 55-199 [facility] Comment on above: Result Comment: If t his glucose result represents a fasting glucose, interpretation should refer to the following reference range: 55-99 mg/dL Performed By: #### 2 918272439, 3459698413, 5078013, 5226551677, 3871028498, 589877323, 4435935, 6752600268, 2927101, 0460766, 4669225, 8886964902, 9162550, 9654087, 6660666, 88404604, 2587791, 063974024, 0223820078, 44008875, 7155336, 5779627, 3638898484 ####[address] [place] [address] Potassium [Moles/Vol] 4.7 mmol/L Normal 3.5-5.3 [facility] Comment on above: Performed By: #### 2 355521760, 9132196338, 1628904, 4806792184, 8555232720, 364327055, 0834036, 9699807045, 9093413, 1839172, 9615306, 8801370904, 9890626, 1626518, 0432307, 90473553, 0216216, 633384984, 5994974517, 68539501, 1160770, 4914139, 3174461372 ####[address] [place] [address] Protein [Mass/Vol] 7.4 g/dL Normal 6.0-7.8 [facility] Comment on above: Performed By: #### 2 079649897, 5808411222, 7601698, 0911619164, 6538758552, 970127770, 6950467, 4061881579, 6536438, 4884839, 7478368, 0011944008, 8264026, 5946648, 3760035, 41686848, 7591991, 516157783, 2550622318, 60787779, 6869743, 1648112, 5928805203 ####[address] [place] [address] Sodium [Moles/Vol] 142 mmol/L Normal 135-145 [facility] Comment on above: Performed By: #### 2 306013393, 4698741965, 3394757, 1946423656, 2355537498, 877042828, 9097921, 3458036782, 1465788, 5160248, 4658475, 7713857681, 9355848, 0679854, 7812737, 35542453, 8588671, 502245781, 4171034242, 50114127, 3029332, 4477169, 1942484908 ####[facility] [address] [place] [address] Urea nitrogen [Mass/Vol] 60 mg/dL High 5-21 [facility] Comment on above: Performed By: #### 2 333938098, 2626333835, 6043351, 1250593164, 0107123981, 682032728, 7948105, 9426260899, 5418423, 9861924, 7492789, 3226308960, 1960424, 8550886, 8888336, 19724778, 2121972, 488774347, 2205799804, 59730812, 2845718, 6477875, 3173042009 ####[facility] [address] [place] [address] Urea nitrogen/Creatinine [Mass ratio] 32 No Units High 10-20 [facility] Comment on above: Performed By: #### 2 979493853, 4820081166, 3693981, 5392047938, 5337100426, 330496744, 5555415, 6427716458, 4838597, 1005910, 8419075, 6747521325, 9659588, 8600790, 3619398, 18725977, 4563751, 466394808, 2191782958, 04887685, 0152609, 1679839, 9602794366 ####[facility] [address] [place] [address] Consent for Treatmenton 02-25 Consent for Treatment [id number]#1 .00CD:127 Normal [facility] Consent for Treatment [id number]#1 .00CD:127 Normal [facility] Ferritinon 03-11-2023 Ferritin [Mass/Vol] 3583 ng/mL High 24-336 [facility] Comment on above: Result Comment: NORM ALS MEN <30 YRS 16-132 ng/mL MEN >30 YRS 8-338 ng/mL WOMEN (PREMEN) 6-104 ng/mL WOMEN (POSTMEN) 12-210 ng/mL Performed By: #### 2 746414970, 3874593095, 3630347, 7632685846, 0484428498, 993535237, 8003278, 6358619219, 9896187, 2696479, 6022604, 7595718458, 1327216, 9856515, 4541970, 86708068, 2665098, 425249348, 7891088276, 52185618, 0161125, 7985105, 1583779088 ####[facility] [address] [place] [address] Folateon 03-11-2023 Folate [Mass/Vol] 11.6 ng/mL Normal >=6.7 [facility] Comment on above: Performed By: #### 2 989463607, 3797429298, 3147896, 0197690789, 6719959032, 483232584, 2475275, 2449170342, 3675639, 0004616, 4897827, 9892907524, 1328796, 7958838, 8831925, 84014211, 0188566, 858951907, 8311390909, 74872207, 4433659, 9207427, 0034351800 ####[address] [place] [address] Ironon 03-11-2023 Iron [Mass/Vol] 267 microgram/dL High 35-153 [facility] Comment on above: Performed By: #### 2 211958026, 1017207486, 4586279, 7534165844, 5855549744, 882068387, 7949957, 3457517452, 2111085, 0078200, 2060685, 0937471591, 5210381, 4777093, 3533531, 54437531, 9237785, 610180053, 8440446830, 22423804, 9220011, 5027956, 9807350697 ####[facility] [address] [place] [address] Iron Saturationon 03-11-2023 Iron binding capacity [Mass/Vol] 294 microgram/dL Normal 250-400 [facility] Comment on above: Performed By: #### 2 027720963, 6066097378, 4653412, 6355256622, 9132827632, 147027229, 8548185, 6035880471, 0100203, 8815979, 5537485, 9242630176, 6542273, 2590779, 7843772, 47874164, 2059001, 810333441, 6942903674, 67930036, 8977998, 9609764, 4961838624 ####[address] [place] [address] Iron saturation [Mass fraction] 91 % High 20-50 [facility] Comment on above: Performed By: #### 2 750665609, 9568046020, 7525498, 7974570661, 0552389753, 491969846, 3844284, 1847204006, 4163876, 6637419, 0488545, 6910499292, 8507502, 4748797, 9732269, 21609893, 7219562, 638480144, 6282987795, 17893322, 1492471, 3508279, 5477711276 ####[address] [address] LDHon 03-11-2023 LDH [Catalytic activity/Vol] 211 Int._Unit/L Normal 93-218 [facility] Comment on above: Performed By: #### 2 217535990, 1176101056, 8657827, 2884369097, 9871157155, 398654092, 0329192, 6498703170, 8232103, 3521870, 0943742, 7868626756, 6299615, 0592904, 5413749, 12485149, 4583438, 538335878, 7759006525, 93979904, 5882695, 4661662, 2341226367 ####[address] [place] [address] Manual Diffon 03-11-2023 Anisocytosis Ql (Bld) Present Normal Fis [facility] Comment on above: Order Comment: Order Added by Discern Expert. Performed By: #### 3 6671077, 0549054, 2431340, 2504200, 67078596 #### [facility] [address] [place] [address] Band form neutrophils/100 WBC (Bld) 9 % Normal 0-10 [facility] Comment on above: Order Comment: Order Added by Discern Expert. Performed By: #### 3 2560667, 3685522, 3920778, 2464061, 23461314 #### [facility] [address] [place] [address] Basophils/100 WBC (Bld) 0 % Normal 0-2 [facility] Comment on above: Order Comment: Order Added by Ronaldo Expert. Performed By: #### 3 0924261, 3331594, 7717789, 1966573, 15494646 #### [facility] [address] [place] [address] Eosinophils/100 WBC (Bld) 1 % Normal 0-8 [facility] Comment on above: Order Comment: Order Added by Ronaldo Expert. Performed By: #### 3 3416288, 2557086, 5194818, 1664140, 02867056 #### [facility] [address] [place] [address] Hypochromia Auto Ql (Bld) Present Normal [facility] Comment on above: Order Comment: Order Added by Ronaldo Expert. Performed By: #### 3 1654351, 5666735, 6880950, 9713528, 51412191 #### [facility] [address] [place] [address] Lymphocytes/100 WBC (Bld) 25 % Normal 14-50 [facility] Comment on above: Order Comment: Order Added by Ronaldo Expert. Performed By: #### 3 8357325, 3427134, 5099880, 8542559, 06275418 #### [facility] [address] [place] [address] Macrocytes Ql (Bld) Present Normal [facility] Comment on above: Order Comment: Order Added by Discern Expert. Performed By: #### 3 9070503, 5460472, 9732333, 5911913, 35376500 #### [facility] [address] [place] [address] Metamyelocytes/Leukoc ytes Manual cnt (Bld) [Pure # fraction] 2 % High <=0 [facility] Comment on above: Order Comment: Order Added by Discern Expert. Performed By: #### 3 5450673, 8529346, 7466438, 2510799, 94397658 #### [facility] [address] [place] [address] Monocytes/100 WBC (Bld) 6 % Normal 4-14 [facility] Comment on above: Order Comment: Order Added by Discern Expert. Performed By: #### 3 5058354, 6831005, 1290050, 2518781, 62855228 #### [facility] [address] [place] [address] Morphology Edmundo (Bld) [Interp] See Morphology Normal [facility] Comment on above: Order Comment: Order Added by Discern Expert. Result Comment: Resu lts are consistent with previous path review performed on 01-06-23. Reviewed by GISELA. Performed By: #### 3 4572956, 1575908, 3954664, 8174535, 85352856 #### [facility] [address] [place] [address] Myelocytes/100 WBC (Bld) 7 % High <=0 [facility] Comment on above: Order Comment: Order Added by Discern Expert. Performed By: #### 3 1164098, 5403225, 3629351, 4160496, 65586333 #### [facility] [address] [place] [address] Platelets Large LM Ql (Bld) Present Normal [facility] Comment on above: Order Comment: Order Added by Discern Expert. Performed By: #### 3 9487330, 4750518, 6080485, 0428936, 54266900 #### [facility] [address] [place] [address] Segmented neutrophils/100 WBC (Bld) 50 % Normal 36-75 [facility] Comment on above: Order Comment: Order Added by Discern Expert. Performed By: #### 3 8307182, 9161199, 9876622, 4827785, 52926577 #### [facility] [address] [place] [address] Variant lymphocytes LM Ql (Bld) 0 % Normal <=0 [facility] Comment on above: Order Comment: Order Added by Discern Expert. Performed By: #### 3 9384892, 8149326, 5526491, 2232456, 40246456 #### [facility] [address] [place] [address] Oncology Noteon 03-11-2023 Oncology Note Oncology Rn Post Partum Office Visit/Treatment Note Current Patient Status/Reason: Patient here with spouse for Initial Clinic Visit. I accompanied Dr. Lu in room. Medical history reviewed. Patient was diagnosed with MDS and received CC/Roman Vidaza. Patient had BMB 08/2021. Patient was signed on with [facility] but then quit [facility]. Patient is on home/portable oxygen. Patient with pancytopenia. 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 Faria/[facility] [phone]. Treatment Plan: labs to be done today, Appt with Dr. Mercer, weekly CBC & BB hold to be done at [facility], every 3 week CMP,LDH to be done at [facility], transfusion standing order faxed to [facility] Follow-Up Appointment Info/Referrals: 6 weeks Resources Offered: Contact information provided to patient. Patient is stage 4 kidney disease and ejection fraction of 20% Normal [facility] Comment on above: Result Comment: Elec [...] for any further chemotherapy or treatment by [facility] hematology oncology here in [facility]. Patient and his Lissette wanted second opinion [...] that. Unfortunately he suffered from an acute IA on 11/23/2021 and developed another GI bleed. He was transfused several RBCs and managed to get his catheterization. 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 He was requiring packed RBC transfusion every 3 to 4 weeks and eventually was deemed not a responsive to 5 days and was seen by Dr. Esposito at [facility]. He was getting blood transfusion for [...] IM injection every 3 weeks at the [facility]. Treatment to date: 1. Intermittent IV [...] Review of Systems Constitutional: Negative. Eye: Negative. Ear/Nose/Mouth/Throat : Negative. Respiratory: Shortness of breath. Cardiovascular: Negative. Gastrointestinal: Negative. Genitourinary: Negative. Hematology/Lymphatics : Negative. Endocrine: Negative. Immunologic: Negative. Musculoskeletal: Negative. [...] colchicine 0.6 (more content not included)... Normal [facility] Patient Educationon 03-11-20 Patient Education Normal [facility] Physician Orderon 03-11-2023 Physician Order [id number]# 1.00CD:127 Normal [facility] Physician Order [id number]# 1.00CD:127 Normal [facility] Physician Order [id number]# 1.00CD:127 Normal [facility] Retic Counton 03-11-2023 Reticulocytes/100 RBC (Bld) 0.7 % Normal 0.5-1.5 [facility] Comment on above: Result Comment: This Reticulocyte Count Has Been Corrected For Anemia Performed By: #### 3 5663211, 2847110, 4104385, 6414293, 46621886 #### [facility] [address] [place] [address] Screenson 03-11-2023 Screens [id number]#1 .00CD:127 Normal [facility] Transferrinon 03-11-2023 Transferrin [Mass/Vol] 210 mg/dL Normal 200-370 [facility] Comment on above: Performed By: #### 2 881810225, 4498511234, 0208736, 3529250898, 2735481239, 550761994, 9582792, 4834721614, 8261971, 1844047, 0502636, 2044132271, 6456264, 1427433, 2232934, 23795564, 9753838, 390054189, 1474271983, 58354211, 9588148, 8327810, 1064767713 ####[facility] [address] [place] [address] UA With Cult Reflexon 2022 Bilirubin Ql (U) Negative Normal Negative [facility] Comment on above: Order Comment: micro hematuria Performed By: #### 1 9535447 ####[facility] [address] [place] [address] Clarity (U) CLEAR Normal Clear [facility] Comment on above: Order Comment: micro hematuria Performed By: #### 1 4525918 ####[facility] [address] [place] [address] Color (U) STRAW Abnormal Yellow [facility] Comment on above: Order Comment: micro hematuria Performed By: #### 1 4371934 ####[facility] [address] [place] [address] Epithelial cells.squamous LM.HPF (Urine sed) [#/Area] 0-2 Normal 0-2 [facility] Comment on above: Order Comment: micro hematuria Performed By: #### 1 4985056 ####[facility] [address] [place] [address] Glucose Test strip (U) [Mass/Vol] 2+ Abnormal Negative [facility] Comment on above: Order Comment: micro hematuria Performed By: #### 1 2180507 ####[facility] [address] [place] [address] Hemoglobin Ql (U) Negative Normal Negative [facility] Comment on above: Order Comment: micro hematuria Performed By: #### 1 2181166 ####[facility] [address] [place] [address] Ketones (U) [Mass/Vol] Negative Normal Negative [facility] Comment on above: Order Comment: micro hematuria Performed By: #### 1 8072003 ####[facility] [address] [place] [address] [place].plasma/Lithiu m.RBC (Bld) [Mass ratio] 0-3 Normal 0-3 [facility] Comment on above: Order Comment: micro hematuria Performed By: #### 1 4247751 ####[facility] [address] [place] [address] Nitrite Ql (U) Negative Normal Negative [facility] Comment on above: Order Comment: micro hematuria Performed By: #### 1 5197952 ####[facility] [address] [place] [address] pH (U) 6.0 [pH] Invalid Interpretation Code 5.0-9.0 [facility] Comment on above: Order Comment: micro hematuria Performed By: #### 1 3112129 ####[facility] [address] [place] [address] Protein (U) [Mass/Vol] Negative Normal Negative [facility] Comment on above: Order Comment: micro hematuria Performed By: #### 1 6075798 ####[address] [address] Specific gravity (U) [Rel density] <=1.005 Invalid Interpretation Code 1.005-1.030 [facility] Comment on above: Order Comment: micro hematuria Performed By: #### 1 3085894 ####[address] [address] Type of Urine collection method Random Urine Normal [facility] Comment on above: Order Comment: micro hematuria Performed By: #### 1 3090340 ####[facility] [address] [place] [address] Urobilinogen Qn (U) 0.2 {Dav'U}/dL Normal 0.0-1.0 [facility] Comment on above: Order Comment: micro hematuria Performed By: #### 1 2198855 ####[facility] [address] [place] [address] WBC Auto Ql (U) Negative Normal Negative [facility] Comment on above: Order Comment: micro hematuria Performed By: #### 1 9047380 ####[facility] [address] [place] [address] WBC LM.HPF (Urine sed) [#/Area] 0-5 Normal 0-5 [facility] Comment on above: Order Comment: micro hematuria Performed By: #### 1 0110568 ####[facility] [address] [place] [address] Vit B12on 03-11-2023 Cobalamin (Vitamin B12) [Mass/Vol] 457 pg/mL Normal 50-1500 [facility] Comment on above: Performed By: #### 2 023738770, 8455062469, 1821516, 4371901606, 6096895458, 801742548, 3697662, 3798831687, 9115344, 8654982, 8833554, 2312797796, 2911339, 5860442, 2658875, 52620223, 8150213, 147552297, 8219107969, 04046081, 1043816, 6782329, 0336825706 ####[facility] [address] [place] [address] eGFRon 03-11-2023 GFR/1.73 sq M.predicted among non-blacks MDRD (S/P/Bld) [Vol rate/Area] 34 mL/min/1.73 m2 Low >=59 [facility] Comment on above: Order Comment: Order added by Discern Expert. Result Comment: [employer] Consultant charlene kidney disease could be indicated at eGFR's of less than 60 mL/min/1.73m2. Kidney failure is indicated at less than 15 mL/min/1.73m2. Performed By: #### 2 213477879, 5675138618, 4822102, 5697138199, 8724546587, 375231763, 2619062, 9610916515, 7934486, 6207398, 2053640, 6889002491, 5102241, 7356635, 7476268, 72173481, 5432041, 253501349, 4522711067, 60895900, 3649957, 9122107, 5359777887 ####[facility] [address] [place] [address] Ambulatory Visit Summaryon 0 03-10-2023 Ambulatory Visit Summary ANNE MARIESANDIP TAN Brynn :1940 Visit Date:03/10/2023 Ambulatory Visit Instructions Your Diagnosis Annual visit for general adult medical examination without abnormal findings Chronic systolic congestive heart failure BPH without obstruction/lower urinary tract symptoms AP (angina pectoris) Primary hypertension Class 1 obesity due to excess calories in adult BMI 34.0-34.9,adult Your Care Team Attending Physician - Jacquelin Hernandes MD Primary Care Physician - Jacquelin Hernandes MD This Is Your Medications List Misc Prescription (Freestyle Carmen 2 Flash Glucose Monitoring 14 Day System (Sensor)) Misc Prescription (Freestyle Carmen Flash 2 Glucose Monitoring 14 Day System ([place])) Misc Prescription (Misc DME Prescription) aspirin (aspirin [...] 40 mg Cap-DR) potassium chloride (Potassium Chloride (Fzz-Laov-Enn M20) 20 mEq oral tablet, extended release) [...] FT Oncology Friday 2:40 PM EDT With: Jacquelin Hernandes MD Where: [facility] Ambulatory Visit Summary SANDIP BROUSSARD :1940 Visit Date:03/10/2023 Ambulatory Visit Instructions Your Diagnosis Annual visit for general adult medical examination without abnormal findings Chronic systolic congestive heart failure BPH without obstruction/lower urinary tract symptoms AP (angina pectoris) Primary hypertension Class 1 obesity due to excess calories in adult BMI 34.0-34.9,adult Your Care Team Attending Physician - Jacquelin Hernandes MD Primary Care Physician - Jacquelin Hernandes MD This Is Your Medications List Misc Prescription (Freestyle Carmen 2 Flash Glucose Monitoring 14 Day System (Sensor)) Misc Prescription (Freestyle Carmen Flash 2 Glucose Monitoring 14 Day System ([place])) Misc Prescription (Misc DME Prescription) aspirin (aspirin [...] 40 mg Cap-DR) potassium chloride (Potassium Chloride (Gtz-Jfbt-Wrq M20) 20 mEq oral tablet, extended release) [...] FT Oncology Friday 2:40 PM EDT With: Jacquelin Hernandes MD Where: [facility] Patient Educationon 03-10-20 23 Patient Education Cardiovascular [...] these instructions at home: Medicines ? Take cenz-xgm-txxdpid and prescription medicines only as told by [...] can dri (more content not included)... Normal [facility] Family Medicine Office/Clini c Noteon 02-17-2023 Family Medicine Office/Clinic Note Chief Complaint ER follow up HPI Staff ER follow up ER followup: Hospital: [place] Visit date: 02/04/23: pt got 4units of [...] with voice recognition artificial intelligence software, specifically Pureshield, PlanZap and or Dextrys. Substitutions may have occurred due to the inherent limitations of voice recognition and artificial intelligence software. ATTESTATION: Documentation services were performed after patient or guardian consented to allow [employer] to record this visit. VIRGEN medical laboratory specialist and provider reviewed before signing. VIRGEN: [...] Tab, 2.5 (more content not included)... Normal [facility] Comment on above: Result Comment: Elec tronically Signed By: Mick SEN, Jacquelin Davies\.br\Date and Time Signed: 02/17/23 12:06 EDT\.br\Electronically Co-Signed By: Maria Ines Puente.br\Date and Time Co-Signed: 02/13/23 18:35 EDT Physician Referralon 023 Physician Referral [id number] 1.00CD:127 Normal [facility] Outside [facility] Correspo ndenceon 02-07-2023 Outside [facility] Correspondence [id number] .00CD:127 Normal [facility] Urinalysison 01-11-2023 Bilirubin Ql (U) Negative Normal Negative [facility] Comment on above: Performed By: #### 1 6036020, [id number] ####[facility] [address] [place] [address] Clarity (U) CLEAR Normal Clear [facility] Comment on above: Performed By: #### 1 5998312, 27528458 ####[facility] [address] [place] [address] Color (U) YELLOW Normal Yellow [facility] Comment on above: Performed By: #### 1 0295450, 81507781 ####[facility] [address] [place] [address] Epithelial cells.squamous LM.HPF (Urine sed) [#/Area] 0-2 Normal 0-2 [facility] Comment on above: Performed By: #### 1 2420785, 56835350 ####[facility] [address] [place] [address] Glucose Test strip (U) [Mass/Vol] 3+ Abnormal Negative [facility] Comment on above: Performed By: #### 1 3464189, 81453875 ####[address] [address] Hemoglobin Ql (U) Negative Normal Negative [facility] Comment on above: Performed By: #### 1 4485586, 17212295 ####[address] [address] Ketones (U) [Mass/Vol] Negative Normal Negative [facility] Comment on above: Performed By: #### 1 1078437, 15193601 ####[address] [address] [place].plasma/Lithiu m.RBC (Bld) [Mass ratio] 0-3 Normal 0-3 [facility] Comment on above: Performed By: #### 1 3676720, 26358311 ####[address] [address] Nitrite Ql (U) Negative Normal Negative [facility] Comment on above: Performed By: #### 1 1949502, 30661992 ####[address] [address] pH (U) 6.5 [pH] Invalid Interpretation Code 5.0-9.0 [facility] Comment on above: Performed By: #### 1 4070127, 82599943 ####[address] [address] Protein (U) [Mass/Vol] Negative Normal Negative [facility] Comment on above: Performed By: #### 1 7781199, 50936929 ####[address] [address] Specific gravity (U) [Rel density] 1.010 Invalid Interpretation Code 1.005-1.030 [facility] Comment on above: Performed By: #### 1 6387568, 54293912 ####[address] [address] Type of Urine collection method Clean Catch Normal [facility] Comment on above: Performed By: #### 1 1567774, 12749682 ####[facility] [address] [place] [address] Urobilinogen Qn (U) 0.2 {Dav'U}/dL Normal 0.0-1.0 [facility] Comment on above: Performed By: #### 1 0891523, 62566532 ####[facility] [address] [place] [address] WBC Auto Ql (U) Negative Normal Negative [facility] Comment on above: Performed By: #### 1 4070334, 10433343 ####[facility] [address] [place] [address] WBC LM.HPF (Urine sed) [#/Area] 0-5 Normal 0-5 [facility] Comment on above: Performed By: #### 1 4422242, 83737642 ####[facility] [address] [place] [address] CHEMISTRYOrdered By: José Luis Cat on 01-10-2023 Albumin DL <= 20 mg/L (U) [Mass/Vol] microgram/mL Normal 0.0 - 19.0 mcg/mL [facility] Remiso Albumin Elph (U) [Mass fraction] 6.1 mg/dL Invalid Interpretation Code [facility] Remisol Creatinine (U) [Mass/Vol] 47.9 mg/dL Invalid Interpretation Code [facility] Remisol U Prot/Creat Ratio 127.30 mg/gm Cr Normal 0.00 - 200.00 mg/gm Cr [facility] Remisol Nurse Consultation Noteon Nurse Consultation Note [...] mg= 1 cap(s), Oral, Daily Potassium Chloride (Vjl-Sgqa-Csl M20) 20 mEq oral tablet, extended release, [...] virus vaccine, inactivated 05/23/2013 Recorded Normal [facility] U Microalbon 01-10-2023 Albumin DL <= 20 mg/L (U) [Mass/Vol] mg/dL Normal 0.0-19.0 [facility] Comment on above: Performed By: #### 1 4116972, 18273694 ####[facility] [address] [place] [address] U Protein/Creat Ratioon 12-26 Albumin Elph (U) [Mass fraction] 6.1 mg/dL Invalid Interpretation Code [facility] Comment on above: Result Comment: The reference range and other method performance specifications have not been established for this test; results should be integrated into the clinical context for interpretation. Performed By: #### 1 [id number] ####[address] [place] [address] Creatinine (U) [Mass/Vol] 47.9 mg/dL Invalid Interpretation Code [facility] Comment on above: Result Comment: The reference range and other method performance specifications have not been established for this test; results should be integrated into the clinical context for interpretation. Performed By: #### 1 [id number] ####[facility] [address] [place] [address] U Prot/Creat Ratio 127.30 mg/gm Cr Normal .00-200.00 [facility] Comment on above: Performed By: #### 1 [id number] ####[facility] [address] [place] [address] Lab Reportson 01-08-2023 Lab Reports [id number]#1. 00CD:127 Normal [facility] Lab Reports [id number]#1 .00CD:127 Normal [facility] Lab Reports [id number]#1. 00CD:127 Normal [facility] Formson 01-07-2023 Forms [id number]#1 .00CD:127 Normal [facility] Path. Reviewon 01-07-2023 Path Review Pancytopenia with mild polychromasia and anisocytosis of RBCs. No increase of schistocytes seen. Invalid Interpretation Code [facility] Comment on above: Order Comment: Order Added by Discern Expert. Performed By: #### 2 769595, 1341072, 08720910, 1516063, 57214798, 39452675, 607014738 ####[facility] [address] [place] [address] Path. Review Pancytopenia with mild polychromasia and anisocytosis of RBCs. No increase of schistocytes seen. D61.818 CPT 16542 Invalid Interpretation Code [facility] Comment on above: Other Comment: Order Added by Discern Expert. Reminderson 01-07-2023 Reminders - From: Brittany Hull DO To: Jacquelin Hernandes MD; Sent: 01/07/2023 12:25:00 EDT Show up: 01/07/2023 12:24:00 EDT Subject: Ambulatory Reminder Due Date/Time: 01/08/2023 12:23:00 EDT just wanted you be aware of pancytopenia Results: Date Result Type Result Name 01/07/2023 9:00 Document - DOC Path Review Normal [facility] Reminders - From: Brittany Hull DO [...] 0.8 E9/L (1.0 - 4.0) 01/06/2023 12: Wheeler Abs Man 0.2 E9/L (0.2 - 1.0) [...] ((H)) 8.1 % ( - <=5.9) Normal [facility] .Manual Abson 01-06-2023 Basophils/Leukocytes Manual cnt (Bld) [Pure # fraction] 0.0 E9/L Normal 0.0-0.2 [facility] Comment on above: Performed By: #### 2 517695, 0425203, 87752788, 4067490, 30471731, 12315727, 041754580 ####[facility] [address] [place] [address] Eosinophils/Leukocyte s Manual cnt (Bld) [Pure # fraction] 0.0 E9/L Normal 0.0-0.5 [facility] Comment on above: Performed By: #### 2 447366, 9081735, 88051133, 4697328, 13873241, 57602979, 630107078 ####[facility] [address] [place] [address] Lymphocytes/Leukocyte s Manual cnt (Bld) [Pure # fraction] 0.8 E9/L Low 1.0-4.0 [facility] Comment on above: Performed By: #### 2 701981, 0227351, 38201859, 7625144, 58214465, 78804606, 694023767 ####[facility] [address] [place] [address] Monocytes/Leukocytes Manual cnt (Bld) [Pure # fraction] 0.2 E9/L Normal 0.2-1.0 [facility] Comment on above: Performed By: #### 2 869118, 4507348, 23679330, 1618529, 39109954, 09704041, 943441540 ####[facility] [address] [place] [address] Neutrophils/Leukocyte s Auto (Bld) [Pure # fraction] 1.4 E9/L Low 2.0-7.5 [facility] Comment on above: Performed By: #### 2 128969, 6636794, 73004283, 2100250, 62463468, 80462785, 685177696 ####[facility] [address] [place] [address] Ambulatory Visit Summaryon 0 01-06-2023 Ambulatory Visit Summary SANDIP BROUSSARD :1940 Visit Date:01/06/2023 Ambulatory Visit Instructions Your Diagnosis Hospice care AP (angina pectoris) Diabetes BPH without obstruction/lower urinary tract symptoms Hyperlipidemia Hypertension Renal failure Bone marrow failure Systolic CHF Pulmonary HTN BMI 34.0-34.9,adult Class 1 obesity due to excess calories in adult Your Care Team Attending Physician - Jacquelin Hernandes MD Primary Care Physician - Jacquelin Hernandes MD This Is Your Medications List Contact [...] 40 mg Cap-DR) potassium chloride (Potassium Chloride (Bfm-Zbrp-Tjh M20) 20 mEq oral tablet, extended release) [...] Friday 2:00 PM EDT With: Where: [facility] Normal [address] [id number]- \.br\ Medications\.br\ What How Much When Instructions\.br\ [...] concerns \.br\ Unchanged potassium chloride (Potassium Chloride (Drh-Xowa-Von M20) 20 mEq oral tablet, extended release) [...] numbers. This can be done either in [place] ([place] or metric measurements. Note that charts and online BMI calculators are available to help you find your BMI quickly and easily without having to do these calculations yourself.\.br\ To calculate your BMI in [place] ([place] measurements:\.br \ \.br\ 1. \.br\ Measure [...] Disease Control and Prevention: www.cdc.gov\.br\ ? \.br\ [place] [employer]: www.heart.org\.br \ ? \.br\ National Heart, Lung, and Blood Tamiment: www.nhlbi.nih.gov \.br\ Summary\.br\ ? \.br\ Body mass index (BMI) is a number that is calculated from a person's weight and height.\.br\ ? \.br\ BMI may help estimate how much of a person's weight is composed of fat. BMI can help identify those who may be at higher risk for certain medical problems.\.br\ ? \.br\ BMI can be measured using Russian measurements or metric measurements.\.br \ ? \.br\ BMI charts are used to identify whether you are underweight, normal weight, overweight, or obese.\.br\ This information is not intended to replace advice given to you by your health care provider. Make sure you discuss any questions you have with your health care provider.\.br\ Document Revised: 04/05/2020 Document Reviewed: 02/11/2020 [employer] Patient Education ? 2022 [employer].br\ \.br\ [facility] Ambulatory Visit Summary SANDIP BROUSSARD :1940 Visit Date:01/06/2023 Ambulatory Visit Instructions Your Diagnosis Hospice care AP (angina pectoris) Diabetes BPH without obstruction/lower urinary tract symptoms Hyperlipidemia Hypertension Renal failure Bone marrow failure Systolic CHF Pulmonary HTN BMI 34.0-34.9,adult Class 1 obesity due to excess calories in adult Your Care Team Attending Physician - Jacquelin Hernandes MD Primary Care Physician - Jacquelin Hernandes MD This Is Your Medications List aspirin [...] 40 mg Cap-DR) potassium chloride (Potassium Chloride (Xjj-Tczz-Tlw M20) 20 mEq oral tablet, extended release) [...] Follow-Up Appointments Friday 2:40 PM EDT With: Jacquelin Hernandes MD Where: [facility] Normal [facility] CBC w/ Auto Diffon 3 Erythrocyte distribution width (RBC) [Ratio] 31.5 % High 10.9-14.2 [facility] Comment on above: Performed By: #### 2 483275, 3489998, 48048265, 7317589, 64797976, 35177872, 697804756 ####[facility] [address] [place] [address] Hematocrit (Bld) [Volume fraction] 18.1 % Low 37.7-49.0 [facility] Comment on above: Performed By: #### 2 159226, 8192170, 60116209, 2810058, 03955028, 21279179, 523813340 ####[facility] [address] [place] [address] Hemoglobin (Bld) [Mass/Vol] 5.9 g/dL Abnormal 13.5-17.5 [facility] Comment on above: Result Comment: Resu lts Called To dr sparks By And Read Back For Confirmation On 01/06/2023 19:53:45 EDT. Performed By: #### 2 053553, 5476191, 91332048, 3403571, 14665640, 98469956, 025534640 ####[address] [address] MCH (RBC) [Entitic mass] 36.4 pg High 27.0-34.0 [facility] Comment on above: Performed By: #### 2 719481, 6504965, 63026510, 1227471, 21737697, 14596486, 473212457 ####[address] [address] MCHC (RBC) [Mass/Vol] 32.3 g/dL Normal 31.4-36.0 [facility] Comment on above: Performed By: #### 2 809299, 7731114, 75755708, 9566930, 19475014, 21929950, 974821256 ####[address] [address] MCV (RBC) [Entitic vol] 112.5 fL High 80.0-100.0 [facility] Comment on above: Performed By: #### 2 551838, 5363214, 53400199, 4997627, 59109084, 72415986, 513409041 ####[address] [place] [address] Platelet mean volume (Bld) [Entitic vol] 13.2 fL High 6.4-10.8 [facility] Comment on above: Performed By: #### 2 018102, 8297077, 77439608, 0303145, 65796711, 18615658, 579725448 ####[address] [place] [address] Platelets (Bld) [#/Vol] 89.0 E9/L Low 150.0-500.0 [facility] Comment on above: Performed By: #### 2 129426, 3345259, 45824485, 3768245, 51973974, 54094956, 698868077 ####[address] [address] RBC (Bld) [#/Vol] 1.6 E12/L Low 4.3-5.9 [facility] Comment on above: Performed By: #### 2 197717, 4528437, 53136327, 4438776, 75520834, 04620692, 863836049 ####[address] [address] WBC corrected for nucl RBC Auto (Bld) [#/Vol] 2.5 E9/L Low 4.0-11.0 [facility] Comment on above: Performed By: #### 2 687909, 9366986, 12835843, 7221298, 39883747, 61014539, 753415634 ####[address] [address] CMPon 01-06-2023 Albumin [Mass/Vol] 3.2 g/dL Low 3.3-5.0 [facility] Comment on above: Performed By: #### 2 550571, 6319131, 77676189, 3213375, 23150881, 98364617, 577417404 ####[address] [place] [address] Albumin/Globulin (S) [Mass conc ratio] 1.0 Low 1.1-2.2 [facility] Comment on above: Performed By: #### 2 568865, 1432985, 45616830, 1726220, 94641044, 78959174, 201382979 ####[address] [address] ALP [Catalytic activity/Vol] 70 Int._Unit/L Normal 21-98 [facility] Comment on above: Performed By: #### 2 711924, 5207443, 91397920, 6103641, 71250934, 99327682, 923343346 ####[facility] [address] [place] [address] ALT No additional P-5'-P [Catalytic activity/Vol] 79 Int._Unit/L High 6-46 [facility] Comment on above: Performed By: #### 2 900747, 2414987, 20168242, 7082216, 02409751, 80715970, 804130376 ####[facility] [address] [place] [address] Anion gap [Moles/Vol] 13 mmol/L Normal 6-16 [facility] Comment on above: Performed By: #### 2 858035, 4648134, 62710438, 4225113, 31930454, 98468897, 366089907 ####[facility] [address] [place] [address] AST [Catalytic activity/Vol] 25 Int._Unit/L Normal 5-43 [facility] Comment on above: Performed By: #### 2 769510, 0691897, 06326189, 1996921, 43526457, 49178312, 147844045 ####[facility] [address] [place] [address] Bilirubin [Mass/Vol] 0.8 mg/dL Normal 0.0-1.1 [facility] Comment on above: Performed By: #### 2 978187, 9413700, 83349737, 4785503, 08192138, 78618807, 563063045 ####[facility] [address] [place] [address] Calcium [Mass/Vol] 8.8 mg/dL Low 8.9-11.1 [facility] Comment on above: Performed By: #### 2 394018, 6796253, 49836151, 7411639, 11020690, 61988337, 567005577 ####[facility] [address] [place] [address] Chloride [Moles/Vol] 104 mmol/L Normal 101-111 [facility] Comment on above: Performed By: #### 2 464665, 7011850, 51824932, 9092011, 77264692, 23352495, 656886350 ####[facility] [address] [place] [address] CO2 [Moles/Vol] 28 mmol/L Normal 21-31 [facility] Comment on above: Performed By: #### 2 413855, 5324341, 59999768, 2910763, 51938220, 99740905, 994341945 ####[facility] [address] [place] [address] Creatinine [Mass/Vol] 2.2 mg/dL High 0.5-1.3 [facility] Comment on above: Performed By: #### 2 965339, 9452295, 08047449, 1227972, 07244711, 20562529, 076283162 ####[facility] [address] [place] [address] Globulin (S) [Mass/Vol] 3.3 g/dL Normal 1.4-4.0 [facility] Comment on above: Performed By: #### 2 399221, 8271562, 55698948, 5945947, 77022099, 63096603, 788522728 ####[facility] [address] [place] [address] Glucose [Mass/Vol] 192 mg/dL Normal 55-199 [facility] Comment on above: Result Comment: If t his glucose result represents a fasting glucose, interpretation should refer to the following reference range: 55-99 mg/dL Performed By: #### 2 128682, 3673549, 95708212, 7712839, 96931807, 38026305, 363559797 ####[facility] [address] [place] [address] Potassium [Moles/Vol] 4.3 mmol/L Normal 3.5-5.3 [facility] Comment on above: Performed By: #### 2 093256, 1496021, 59574333, 2774671, 42402905, 37014380, 933611125 ####[facility] [address] [place] [address] Protein [Mass/Vol] 6.5 g/dL Normal 6.0-7.8 [facility] Comment on above: Performed By: #### 2 784353, 1695958, 16857915, 5395674, 28692949, 57383152, 497288419 ####[facility] [address] [place] [address] Sodium [Moles/Vol] 141 mmol/L Normal 135-145 [facility] Comment on above: Performed By: #### 2 753440, 2321134, 04905634, 7071971, 89611716, 10344106, 441305288 ####[facility] [address] [place] [address] Urea nitrogen [Mass/Vol] 41 mg/dL High 5-21 [facility] Comment on above: Performed By: #### 2 072765, 9564121, 21675875, 0830744, 48287068, 33086788, 474273639 ####[facility] [address] [place] [address] Urea nitrogen/Creatinine [Mass ratio] 19 No Units Normal 10-20 [facility] Comment on above: Performed By: #### 2 901353, 2516080, 89561515, 5394616, 78755705, 25995149, 222138414 ####[facility] [address] [place] [address] [facility] Medicine Office/Clini c Noteon 01-06-2023 Family Medicine [...] of O2 2/2 pulm HTN, CHF. - [facility] is cardiology - No Pulm [...] Comprehensive Metabolic Panel HgbA1c Lab Specimen Collect 701[address] Microalbumin Level Urine U Protein/Creat Ratio 2. AP (angina pectoris) (I20.9: Angina pectoris, unspecified) - No chest pain. Ordered: CBC w/ Auto Diff Comprehensive Metabolic Panel HgbA1c Lab Specimen Collect [address] Microalbumin Level Urine U Protein/Creat Ratio 3. Diabetes (E11.9: Type 2 diabetes mellitus without complications) - Will check A1c. - Will relax requirements as the patient is on hospice. Ordered: CBC w/ Auto Diff Comprehensive Metabolic Panel HgbA1c Lab Specimen Collect [address]238 Microalbumin Level Urine U Protein/Creat Ratio 4. 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 Ordered: CBC w/ Auto Diff Comprehensive Metabolic Panel HgbA1c Lab Specimen Collect [address]6946 Microalbumin Level Urine U Protein/Creat Ratio 5. Hyperlipidemia (E78.5: Hyperlipidemia, unspecified) - Will have the patient stop taking his cholesterol meds. Ordered: CBC w/ Auto Diff Comprehensive Metabolic Panel HgbA1c Lab Specimen Collect [address] Microalbumin Level Urine U Protein/Creat Ratio 6. [...] or previo (more content not included)... Normal [facility] Comment on above: Result Comment: Elec tronically Signed By: Mick SEN, Jacquelin Davies\.br\Date and Time Signed: 01/06/23 12:30 EDT OgiD9aar 01-06-2023 HbA1c (Bld) [Mass fraction] 8.1 % High <=5.9 [facility] Comment on above: Performed By: #### 2 487216, 4039317, 66914097, 8939293, 69019242, 43307821, 031350600 ####[facility] [address] [place] [address] Manual Diffon 01-06-2023 Anisocytosis Ql (Bld) Present Normal [facility] Comment on above: Order Comment: Order Added by Discern Expert. Performed By: #### 2 541494, 3538605, 73855879, 1252977, 54661129, 19807129, 514837104 ####[facility] [address] [place] [address] Band form neutrophils/100 WBC (Bld) 5 % Normal 0-10 [facility] Comment on above: Order Comment: Order Added by Discern Expert. Performed By: #### 2 809649, 8492693, 95772625, 7832901, 98521204, 53708460, 435345393 ####[facility] [address] [place] [address] Basophils/100 WBC (Bld) 1 % Normal 0-2 [facility] Comment on above: Order Comment: Order Added by Discern Expert. Performed By: #### 2 100665, 8290227, 03030955, 4803060, 88699676, 82465329, 716184712 ####[facility] [address] [place] [address] Eosinophils/100 WBC (Bld) 0 % Normal 0-8 [facility] Comment on above: Order Comment: Order Added by Discern Expert. Performed By: #### 2 502408, 6026038, 32240007, 9150449, 39050635, 27895080, 066049479 ####[facility] [address] [place] [address] Hypochromia Auto Ql (Bld) Present Normal [facility] Comment on above: Order Comment: Order Added by Discern Expert. Performed By: #### 2 416784, 4119350, 47419537, 6171185, 42093797, 20404624, 079686524 ####[facility] [address] [place] [address] Lymphocytes/100 WBC (Bld) 30 % Normal 14-50 [facility] Comment on above: Order Comment: Order Added by Discern Expert. Performed By: #### 2 388659, 5115804, 92112480, 3981705, 84469823, 77792065, 405578800 ####[facility] [address] [place] [address] Macrocytes Ql (Bld) Present Normal [facility] Comment on above: Order Comment: Order Added by Discern Expert. Performed By: #### 2 990417, 1449195, 83720252, 7801471, 23546031, 35089511, 834152533 ####[facility] [address] [place] [address] Monocytes/100 WBC (Bld) 7 % Normal 4-14 [facility] Comment on above: Order Comment: Order Added by Discern Expert. Performed By: #### 2 065287, 3912225, 19251784, 4951840, 15610242, 95944246, [id number] ####[facility] [address] [place] [address] Morphology Edmundo (Bld) [Interp] See Morphology Normal [facility] Comment on above: Order Comment: Order Added by Discern Expert. Performed By: #### 2 095931, 3178203, 82676683, 6463871, [id number], 19074808, [id number] ####[facility] [address] [place] [address] Myelocytes/100 WBC (Bld) 5 % High <=0 [facility] Comment on above: Order Comment: Order Added by Discern Expert. Performed By: #### 2 754090, 9962383, 24988842, 3118066, 83621144, 68043645, [id number] ####[facility] [address] [place] [address] Ovalocytes LM Ql (Bld) Present Normal [facility] Comment on above: Order Comment: Order Added by Discern Expert. Performed By: #### 2 776672, 6685312, 21346400, 1784738, 81939117, 30417298, [id number] ####[facility] [address] [place] [address] Platelets Large LM Ql (Bld) Present Normal [facility] Comment on above: Order Comment: Order Added by Discern Expert. Performed By: #### 2 926861, 9083206, 85828525, 6843057, 30141734, 48055169, [id number] ####[facility] [address] [place] [address] Segmented neutrophils/100 WBC (Bld) 50 % Normal 36-75 [facility] Comment on above: Order Comment: Order Added by Discern Expert. Performed By: #### 2 297245, 2608488, 32297165, 0480592, 47023752, 05306479, [id number] ####[facility] [address] [place] [address] Variant lymphocytes LM Ql (Bld) 2 % High <=0 [facility] Comment on above: Order Comment: Order Added by Discern Expert. Performed By: #### 2 834622, 8848391, 28688471, 6277466, 96894702, 28575516, [id number] ####[facility] [address] [place] [address] Patient Educationon 01-07-20 Patient Education Nutrition BMI [...] numbers. This can be done either in [place] ([place] or metric measurements. Note that charts and online BMI calculators are available to help you find your BMI quickly and easily without having to do these calculations yourself. To calculate your BMI in Russian ([place] measurements: 1. Measure your weight in [...] for Disease Control and Prevention: www.cdc.gov ? [place] Heart [employer]: www.heart.org ? National Heart, Lung, and Blood Tamiment: www.nhlbi.nih.gov Summary ? Body mass index (BMI) is a number that is calculated from a person's weight and height. ? BMI may help estimate how much of a person's weight is composed of fat. BMI can help identify those who may be at higher risk for certain medical problems. ? BMI can be measured using Russian measurements or metric measurements. ? BMI charts are used to identify whether you are underweight, normal weight, overweight, or obese. This information is not intended to replace advice given to you by your health care provider. Make sure you discuss any questions you have with your health care provider. Document Revised: 04/05/2020 Document Reviewed: 02/11/2020 [employer] Patient Education ? 2022 [employer]. [facility] eGFRon 01-06-2023 GFR/1.73 sq M.predicted among non-blacks MDRD (S/P/Bld) [Vol rate/Area] 29 mL/min/1.73 m2 Low >=59 [facility] Comment on above: Order Comment: Order added by Discern Expert. Result Comment: [employer] Consultant charlene kidney disease could be indicated at eGFR's of less than 60 mL/min/1.73m2. Kidney failure is indicated at less than 15 mL/min/1.73m2. Performed By: #### 2 333483, 2887263, [id number], 6437911, 71245368, 74143642, [id number] ####[facility] [address] [place] [address] Lab Reportson 12-26-2022 Lab Reports [id number] .[id number]:127 Normal [facility] Lab Reportson 12-11-2022 Lab Reports [id number] .[id number]:127 Normal [facility] CBC AUTO DIFFon 12-10-2022 BASO # 0.0 103/ul Normal 0.0-0.1 [facility] Comment on above: Performed By: #### H H #### [facility] [address] [address] [address] Benito To Basophils/100 WBC (Bld) 0.5 % Normal 0.2-2.0 [facility] Comment on above: Performed By: #### H H #### [facility] [address] [address] [address] Benito To EO # 0.0 103/ul Normal 0.0-0.7 [facility] Comment on above: Performed By: #### H H #### [facility] [address] [address] [address] Benito To Eosinophils/100 WBC (Bld) 0.9 % Normal 0.9-7.0 [facility] Comment on above: Performed By: #### H H #### [facility] [address] [place] [address] Dr. Benito To Erythrocyte distribution width (RBC) [Ratio] 26.4 % Critically high 11.0-15.0 [facility] Comment on above: Performed By: #### H H #### [facility] [address] [place] [address] Dr. Benito To Hematocrit (Bld) [Volume fraction] 25.0 % Critically low 42.0-54.0 [facility] Comment on above: Performed By: #### H H #### [facility] [address] [place] [address] Dr. Benito To Hemoglobin (Bld) [Mass/Vol] 8.1 g/dL Critically low 14.0-18.0 [facility] Comment on above: Performed By: #### H H #### [facility] [address] [place] [address] Dr. Benito To IG # 0.11 10e3/ul Critically high 0.00-0.03 [facility] Comment on above: Performed By: #### H H #### [facility] [address] [place] [address] Dr. Benito To IG % 5.0 % Critically high 0.0-0.5 [facility] Comment on above: Performed By: #### H H #### [facility] [address] [place] [address] Dr. Benito To LYMPH # 0.7 103/ul Critically low 1.2-3.8 [facility] Comment on above: Performed By: #### H H #### [facility] [address] [place] [address] Dr. Benito To Lymphocytes/100 WBC (Bld) 29.9 % Normal 20.5-60.0 [facility] Comment on above: Performed By: #### H H #### [facility] [address] [place] [address] Dr. Benito To MANUAL DIFF REQ NO Normal [facility] Comment on above: Performed By: #### H H #### [facility] [address] [place] [address] Dr. Benito To MCH (RBC) [Entitic mass] 33.2 pg Normal 25.9-34.0 [facility] Comment on above: Performed By: #### H H #### [facility] [address] [address] [address] Benito To MCHC (RBC) [Mass/Vol] 32.4 g/dL Normal 29.9-35.2 [facility] Comment on above: Performed By: #### H H #### [facility] [address] [address] [address] Benito To MCV (RBC) [Entitic vol] 102.5 fL Critically high 80.0-94.0 [facility] Comment on above: Performed By: #### H H #### [facility] [address] [place] [address] Dr. Benito To MONO # 0.3 103/ul Normal 0.3-0.8 [facility] Comment on above: Performed By: #### H H #### [facility] [address] [place] [address] Dr. Benito To Monocytes/100 WBC (Bld) 14.5 % Critically high 1.7-12.0 [facility] Comment on above: Performed By: #### H H #### [facility] [address] [place] [address] Dr. Benito To NEUT # 1.1 103/ul Critically low 1.4-6.5 [facility] Comment on above: Performed By: #### H H #### [facility] [address] [place] [address] Dr. Benito To Neutrophils/100 WBC (Bld) 49.2 % Normal 43.0-75.0 [facility] Comment on above: Performed By: #### H H #### [facility] [address] [place] [address] Dr. Benito To Platelet mean volume (Bld) [Entitic vol] 14.4 fL Critically high 9.5-13.5 [facility] Comment on above: Performed By: #### H H #### [facility] [address] [place] [address] Dr. Benito To PLT 121 103/ul Critically low 150-450 [facility] Comment on above: Performed By: #### H H #### [facility] [address] [place] [address] Dr. Benito To RBC 2.44 106/ul Critically low 4.70-6.10 [facility] Comment on above: Performed By: #### H H #### [facility] [address] [place] [address] Dr. Benito To WBC 2.2 103/ul Critically low 4.0-11.0 [facility] Comment on above: Performed By: #### H H #### [facility] [address] [place] [address] Dr. Benito To Lab Reportson 12-04-2022 Lab Reports [id number] .[id number]:127 Normal [facility] PRBC LEUKOREDUCEDon 12-05-19 23 ABO and Rh group Nom (Bld) Cross Match Result Compatible Unit Blood Type A Pos Unit Number [id number] Status Information Issued Product ID Red Blood Cells Product Code [id number] Issue Date/Time [id number] Normal [facility] Comment on above: Performed By: #### P RBC, TNS #### [facility] [address] [place] [address] Dr. Benito To Ambulatory Visit Summaryon 0 [...] 40 mg Cap-DR) potassium chloride (Potassium Chloride (Tnz-Zake-Pst M20) 20 mEq oral tablet, extended release) [...] Friday 10:40 AM EDT With: Mick SEN, Jacquelin Davies Where: [facility] CBC AUTO DIFFon 12-03-2022 BASO # 0.0 103/ul Normal 0.0-0.1 [facility] Comment on above: Performed By: #### T NS, PRBC #### [facility] [address] [place] [address] Dr. Benito To Basophils/100 WBC (Bld) 0.4 % Normal 0.2-2.0 [facility] Comment on above: Performed By: #### T NS, PRBC #### [facility] [address] [place] [address] Dr. Benito To EO # 0.0 103/ul Normal 0.0-0.7 [facility] Comment on above: Performed By: #### T NS, PRBC #### [facility] [address] [place] [address] Dr. Benito To Eosinophils/100 WBC (Bld) 0.4 % Critically low 0.9-7.0 [facility] Comment on above: Performed By: #### T NS, PRBC #### [facility] [address] [place] [address] Dr. Benito To Erythrocyte distribution width (RBC) [Ratio] 26.9 % Critically high 11.0-15.0 [facility] Comment on above: Performed By: #### T NS, PRBC #### [facility] [address] [place] [address] Dr. Benito To Hematocrit (Bld) [Volume fraction] 22.5 % Critically low 42.0-54.0 [facility] Comment on above: Performed By: #### T NS, PRBC #### [facility] [address] [place] [address] Dr. Benito To Hemoglobin (Bld) [Mass/Vol] 7.0 g/dL Critically low 14.0-18.0 [facility] Comment on above: Performed By: #### T NS, PRBC #### [facility] [address] [place] [address] Dr. Benito To IG # 0.16 10e3/ul Critically high 0.00-0.03 [facility] Comment on above: Performed By: #### T NS, PRBC #### [facility] [address] [place] [address] Dr. Benito To IG % 7.0 % Critically high 0.0-0.5 [facility] Comment on above: Performed By: #### T NS, PRBC #### [facility] [address] [place] [address] Dr. Benito To LYMPH # 0.7 103/ul Critically low 1.2-3.8 [facility] Comment on above: Performed By: #### T NS, PRBC #### [facility] [address] [place] [address] Dr. Benito To Lymphocytes/100 WBC (Bld) 28.6 % Normal 20.5-60.0 [facility] Comment on above: Performed By: #### T NS, PRBC #### [facility] [address] [place] [address] Dr. Benito To MANUAL DIFF REQ NO Normal [facility] Comment on above: Performed By: #### T NS, PRBC #### [facility] [address] [place], [place] [address] Dr. Benito To MCH (RBC) [Entitic mass] 32.6 pg Normal 25.9-34.0 [facility] Comment on above: Performed By: #### T NS, PRBC #### [facility] [address] [place] [address] Dr. Benito To MCHC (RBC) [Mass/Vol] 31.1 g/dL Normal 29.9-35.2 [facility] Comment on above: Performed By: #### T NS, PRBC #### [facility] [address] [place] [address] Dr. Benito To MCV (RBC) [Entitic vol] 104.7 fL Critically high 80.0-94.0 [facility] Comment on above: Performed By: #### T NS, PRBC #### [facility] [address] [place] [address] Dr. Benito To MONO # 0.4 103/ul Normal 0.3-0.8 [facility] Comment on above: Performed By: #### T NS, PRBC #### [facility] [address] [place] [address] Dr. Benito To Monocytes/100 WBC (Bld) 19.4 % Critically high 1.7-12.0 [facility] Comment on above: Performed By: #### T NS, PRBC #### [facility] [address] [place] [address] Dr. Benito To NEUT # 1.0 103/ul Critically low 1.4-6.5 [facility] Comment on above: Performed By: #### T NS, PRBC #### [facility] [address] [place] [address] Dr. Benito To Neutrophils/100 WBC (Bld) 44.2 % Normal 43.0-75.0 [facility] Comment on above: Performed By: #### T NS, PRBC #### [facility] [address] [place] [address] Dr. Benito To Platelet mean volume (Bld) [Entitic vol] 14.6 fL Critically high 9.5-13.5 [facility] Comment on above: Performed By: #### T NS, PRBC #### [facility] [address] [address] [address] Benito To PLT 93 103/ul Critically low 150-450 [facility] Comment on above: Performed By: #### T NS, PRBC #### [facility] [address] [place], [place] [address] Dr. Benito To RBC 2.15 106/ul Critically low 4.70-6.10 [facility] Comment on above: Performed By: #### T NS, PRBC #### [facility] [address] [place], [place] [address] Dr. Benito To WBC 2.3 103/ul Critically low 4.0-11.0 [facility] Comment on above: Performed By: #### T NS, PRBC #### [facility] [address] [address] [address] Benito To Family Medicine Office/Clini c [...] mg= 1 cap(s), Oral, Daily Potassium Chloride (Ydh-Rpot-Dcm M20) 20 mEq oral tablet, extended release, [...] SARS-CoV-2 (COVID-19) (more content not included)... Normal [facility] Comment on above: Result Comment: Elec tronically Signed By: RYANNE SEN, FLASH Holden\Liannabr\Date and Time Signed: 12/03/22 13:58 EDT PROF CHEM 8 (BAS METB)on Anion gap [Moles/Vol] 8.3 mmol/L Normal [facility] Comment on above: Performed By: #### T NS, PRBC #### [facility] [address] [place] [address] Dr. Benito To Calcium [Mass/Vol] 9.2 mg/dL Normal 8.5-10.1 [facility] Comment on above: Performed By: #### T NS, PRBC #### [facility] [address] [place] [address] Dr. Benito To Chloride [Moles/Vol] 102 mmol/L Normal 98-107 [facility] Comment on above: Performed By: #### T NS, PRBC #### [facility] [address] [place] [address] Dr. Benito To CO2 [Moles/Vol] 31.5 mmol/L Normal 21.0-32.0 [facility] Comment on above: Performed By: #### T NS, PRBC #### [facility] [address] [place] [address] Dr. Benito To Creatinine [Mass/Vol] 1.96 mg/dL Critically high 0.70-1.30 [facility] Comment on above: Performed By: #### T NS, PRBC #### [facility] [address] [place] [address] Dr. Benito To EGFR-AF MICRONESIAN 40 mL/min/1.73m2 Critically low >=60 [facility] Comment on above: Performed By: #### T NS, PRBC #### [facility] [address] [place] [address] Dr. Benito To EGFR-NON AF MICRONESIAN 33 mL/min/1.73m2 Critically low >=60 [facility] Comment on above: Performed By: #### T NS, PRBC #### [facility] [address] [place] [address] Dr. Benito To Glucose [Mass/Vol] 235 mg/dL Critically high 74-106 [facility] Comment on above: Performed By: #### T NS, PRBC #### [facility] [address] [address] [address] Benito To Potassium [Moles/Vol] 3.8 mmol/L Normal 3.5-5.1 [facility] Comment on above: Performed By: #### T NS, PRBC #### [facility] [address] [address] [address] Benito To Sodium [Moles/Vol] 138 mmol/L Normal 136-145 [facility] Comment on above: Performed By: #### T NS, PRBC #### [facility] [address] [address] [address] Benito To Urea nitrogen [Mass/Vol] 45.0 mg/dL Critically high 7.0-18.0 [facility] Comment on above: Performed By: #### T NS, PRBC #### [facility] [address] [place] [address] Dr. Benito To Urea nitrogen/Creatinine [Mass ratio] 23.0 mg/mg Normal [facility] Comment on above: Performed By: #### T NS, PRBC #### [facility] [address] [place] [address] Dr. Benito To TYPE AND SCREENon 12-03-2022 TYPE AND SCREEN Negative Normal [facility] Comment on above: Performed By: #### P RBC, TNS #### [facility] [address] [place] [address] Dr. Benito To Ambulatory Visit Summaryon 0 11-20-2022 Ambulatory Visit Summary AARTI SANDIP Brynn :1940 Visit Date:11/20/2022 Ambulatory Visit Instructions Your [...] 40 mg Cap-DR) potassium chloride (Potassium Chloride (Xdb-Vxnx-Eoz M20) 20 mEq oral tablet, extended release) [...] PM EDT With: FLASH PEARL MD Where: [facility] Ambulatory Visit Summary SANDIP BROUSSARD :1940 Visit [...] 40 mg Cap-DR) potassium chloride (Potassium Chloride (Flz-Xzbx-Qwz M20) 20 mEq oral tablet, extended release) [...] EDT With: RYANNE SEN, FLASH Holden Where: [facility] CBC W Auto Differential pane l (Bld)on 11-20-2022 Anisocytosis Ql (Bld) Present Normal [facility] Comment on above: Order Comment: Speci men Type: BLOOD SPECIMENOrdering Facility: [facility] Address: [address] [place] [address] Performed By: #### 5 7021-8 ####[facility] LABCLIA [id number] [address] LABCLIA [id number] [place] [address] [place] Basophils (Bld) [#/Vol] 0.06 10*3/uL Normal <0.11 [facility] Comment on above: Order Comment: Speci men Type: BLOOD SPECIMENOrdering Facility: [facility] Address: [address] [place] [address] Performed By: #### 5 7021-8 ####[facility] LABCLIA [id number] [address] LABCLIA [id number] [place] [address] [place] Basophils/100 WBC (Bld) 1.0 % Normal [facility] Comment on above: Order Comment: Speci men Type: BLOOD SPECIMENOrdering Facility: [facility] Address: [address] [place] [address] Performed By: #### 5 7021-8 ####[facility] LABCLIA [id number] [address] LABCLIA [id number] [place] [address] [place] Differential cell count method Nom (Bld) Manual Normal [facility] Comment on above: Order Comment: Speci men Type: BLOOD SPECIMENOrdering Facility: [facility] Address: [address] [place] [address] Performed By: #### 5 7021-8 ####[facility] LABCLIA [id number] [address] LABCLIA [id number] [place] [address] [place] DYSPLASTIC PMNS Occasional Normal [facility] Comment on above: Order Comment: Speci men Type: BLOOD SPECIMENOrdering Facility: [facility] Address: [address] [place] [address] Performed By: #### 5 7021-8 ####[facility] LABCLIA [id number] [address] LABCLIA [id number] [place] [address] [place] Eosinophils (Bld) [#/Vol] 0.00 10*3/uL Normal <0.46 [facility] Comment on above: Order Comment: Speci men Type: BLOOD SPECIMENOrdering Facility: [facility] Address: [address] [place] [address] Performed By: #### 5 7021-8 ####[facility] LABCLIA [id number] [address] LABCLIA [id number] [place] [address] [place] Eosinophils/100 WBC (Bld) 0.0 % Normal [facility] Comment on above: Order Comment: Speci men Type: BLOOD SPECIMENOrdering Facility: [facility] Address: [address] [place] [address] Performed By: #### 5 7021-8 ####[facility] LABCLIA [id number] [address] LABCLIA [id number] [place] [address] [place] Erythrocyte distribution width (RBC) [Ratio] 25.0 % High 11.5-15.0 [facility] Comment on above: Order Comment: Speci men Type: BLOOD SPECIMENOrdering Facility: [facility] Address: [address] [place] [address] Performed By: #### 5 7021-8 ####[facility] [place] [facility] LABCLIA [id number] [address] LABCLIA [id number] [place] [address] [place] Hematocrit (Bld) [Volume fraction] 25.0 % Low 39.0-51.0 [facility] Comment on above: Order Comment: Speci men Type: BLOOD SPECIMENOrdering Facility: [facility] Address: [address] [place] [address] Performed By: #### 5 7021-8 ####[facility] LABCLIA [id number] [address] LABCLIA [id number] [place] [address] [place] Hemoglobin (Bld) [Mass/Vol] 7.9 g/dL Low 13.0-17.0 [facility] Comment on above: Order Comment: Speci men Type: BLOOD SPECIMENOrdering Facility: [facility] Address: [address] [place] [address] Performed By: #### 5 7021-8 ####[facility] LABCLIA [id number] [place] [id number] LABCLIA [id number] [place] [address] [place] Lymphocytes (Bld) [#/Vol] 1.60 10*3/uL Normal 1.00-4.00 [facility] Comment on above: Order Comment: Speci men Type: BLOOD SPECIMENOrdering Facility: [facility] Address: [address] [place] [address] Performed By: #### 5 7021-8 ####[facility] LABCLIA [id number] [address] LABCLIA [id number] [place] [address] [place] Lymphocytes/100 WBC (Bld) 25.0 % Normal [facility] Comment on above: Order Comment: Speci men Type: BLOOD SPECIMENOrdering Facility: [facility] Address: [address] [place] [address] Performed By: #### 5 7021-8 ####[facility] [place] [facility] LABCLIA [id number] [address] LABCLIA [id number] [place] [address] [place] MCH (RBC) [Entitic mass] 32.5 pg Normal 26.0-34.0 [facility] Comment on above: Order Comment: Speci men Type: BLOOD SPECIMENOrdering Facility: [facility] Address: [address] [place], [place] [address] Performed By: #### 5 7021-8 ####[facility] LABCLIA [id number] [address] LABCLIA [id number] [place] [address] [place] MCHC (RBC) [Mass/Vol] 31.6 g/dL Normal 30.5-36.0 [facility] Comment on above: Order Comment: Speci men Type: BLOOD SPECIMENOrdering Facility: [facility] Address: [address] [place] [address] Performed By: #### 5 7021-8 ####[facility] LABCLIA [id number] [address] LABCLIA [id number] [place] [address] [place] MCV (RBC) [Entitic vol] 102.9 fL High 80.0-100.0 [facility] Comment on above: Order Comment: Speci men Type: BLOOD SPECIMENOrdering Facility: [facility] Address: [address] [place] [address] Performed By: #### 5 7021-8 ####[facility] LABCLIA [id number] [address] LABCLIA [id number] [place] [address] [place] Metamyelocytes/100 WBC (Bld) 1.0 % Normal [facility] Comment on above: Order Comment: Speci men Type: BLOOD SPECIMENOrdering Facility: [facility] Address: [address] [place] [address] Performed By: #### 5 7021-8 ####[facility] LABCLIA [id number] [address] LABCLIA [id number] [place] [address] [place] Monocytes (Bld) [#/Vol] 1.15 10*3/uL High <0.87 [facility] Comment on above: Order Comment: Speci men Type: BLOOD SPECIMENOrdering Facility: [facility] Address: [address] [place] [address] Performed By: #### 5 7021-8 ####[facility] LABCLIA [id number] [place], [place] [address] LABCLIA [id number] [place] [address] [place] Monocytes/100 WBC (Bld) 18.0 % Normal [facility] Comment on above: Order Comment: Speci men Type: BLOOD SPECIMENOrdering Facility: [facility] Address: [address] [place] [address] Performed By: #### 5 7021-8 ####[facility] LABCLIA [id number] [address] LABCLIA [id number] [place] [address] [place] MYELO% 14.0 % Normal [facility] Comment on above: Order Comment: Speci men Type: BLOOD SPECIMENOrdering Facility: [facility] Address: [address] [place] [address] Performed By: #### 5 7021-8 ####[facility] LABCLIA [id number] [address] LABCLIA [id number] [place] [address] [place] Neutrophils (Bld) [#/Vol] 2.63 10*3/uL Normal 1.45-7.50 [facility] Comment on above: Order Comment: Speci men Type: BLOOD SPECIMENOrdering Facility: [facility] Address: [address] [place], [place] [address] Performed By: #### 5 7021-8 ####[facility] LABCLIA [id number] [address] LABCLIA [id number] [place] [address] [place] Neutrophils/100 WBC (Bld) 41.0 % Normal [facility] Comment on above: Order Comment: Speci men Type: BLOOD SPECIMENOrdering Facility: [facility] Address: [address] [place], [place] [address] Performed By: #### 5 7021-8 ####[facility] LABCLIA [id number] [address] LABCLIA [id number] [place] [address] [place] Nucleated RBC (Bld) [#/Vol] 10*3/uL Normal <0.01 [facility] Comment on above: Order Comment: Speci men Type: BLOOD SPECIMENOrdering Facility: [facility] Address: [address] [place] [address] Performed By: #### 5 7021-8 ####[facility] LABCLIA [id number] [address] LABCLIA [id number] [place] [address] [place] Nucleated RBC/100 WBC (Bld) [Ratio] 0.0 /100 WBC Normal [facility] Comment on above: Order Comment: Speci men Type: BLOOD SPECIMENOrdering Facility: [facility] Address: [address] [place] [address] Performed By: #### 5 7021-8 ####[facility] LABCLIA [id number] [address] LABCLIA [id number] [place] [address] [place] Ovalocytes LM Ql (Bld) Few Normal [facility] Comment on above: Order Comment: Speci men Type: BLOOD SPECIMENOrdering Facility: [facility] Address: [address] [place] [address] Performed By: #### 5 7021-8 ####[facility] LABCLIA [id number] [address] LABCLIA [id number] [place] [address] [place] Platelet mean volume (Bld) [Entitic vol] 15.0 fL High 9.0-12.7 [facility] Comment on above: Order Comment: Speci men Type: BLOOD SPECIMENOrdering Facility: [facility] Address: [address] [place] [address] Performed By: #### 5 7021-8 ####[facility] LABCLIA [id number] [address] LABCLIA [id number] [place] [address] [place] Platelets (Bld) [#/Vol] 121 10*3/uL Low 150-400 [facility] Comment on above: Order Comment: Speci men Type: BLOOD SPECIMENOrdering Facility: [facility] Address: [address] [place] [address] Result Comment: Resu lts checked and verified.No clot detected. Performed By: #### 5 7021-8 ####[facility] LABCLIA [id number] [place] [id number] LABCLIA [id number] [place] [address] [place] Platelets Estimate (Bld) [#/Vol] Decreased Normal [facility] Comment on above: Order Comment: Speci men Type: BLOOD SPECIMENOrdering Facility: [facility] Address: [address] [place], [place] [address] Performed By: #### 5 7021-8 ####[facility] LABCLIA [id number] [place] [id number] LABCLIA [id number] [place] [address] [place] Polychromasia LM Ql (Bld) Slight Normal [facility] Comment on above: Order Comment: Speci men Type: BLOOD SPECIMENOrdering Facility: [facility] Address: [address] [place], [place] [address] Performed By: #### 5 7021-8 ####[facility] LABCLIA [id number] [address] LABCLIA [id number] [place] [address] [place] RBC (Bld) [#/Vol] 2.43 10*6/uL Low 4.20-6.00 [facility] Comment on above: Order Comment: Speci men Type: BLOOD SPECIMENOrdering Facility: [facility] Address: [address] [address] Performed By: #### 5 7021-8 ####[facility] LABCLIA [id number] [address] LABCLIA [id number] [place] [address] [place] RED CELL MORPH Reviewed: see result s of individual morphologies Normal [facility] Comment on above: Order Comment: Speci men Type: BLOOD SPECIMENOrdering Facility: [facility] Address: [address] [place] [address] Performed By: #### 5 7021-8 ####[facility] LABCLIA [id number] [address] LABCLIA [id number] [place] [address] [place] WBC (Bld) [#/Vol] 6.41 10*3/uL Normal 3.70-11.00 [facility] Comment on above: Order Comment: Speci men Type: BLOOD SPECIMENOrdering Facility: [facility] Address: [address] [address] Result Comment: Resu lts checked and verified.No clot detected. Performed By: #### 5 7021-8 ####[facility] LABCLIA [id number] [address] LABCLIA [id number] [place] [address] [place] WBC Left Shift Ql (Bld) Present Normal [facility] Comment on above: Order Comment: Speci men Type: BLOOD SPECIMENOrdering Facility: [facility] Address: [address] [place] [address] Performed By: #### 5 7021-8 ####[facility] LABCLIA [id number] [place], [place] [address]CIUN[facility]IJ[facility] LABCLIA [id number] [place] [address] [place] CNOVSPon 11-20-2022 CNOVSP Normal [facility] CNPNon 11-20-2022 CNPN Normal [facility] Comprehensive metabolic 2000 panelon 11-20-2022 Albumin [Mass/Vol] 3.6 g/dL Low 3.9-4.9 [facility] Comment on above: Order Comment: Speci men Type: BLOOD SPECIMENOrdering Facility: [facility] Address: [address] [place] [address] Performed By: #### 2 4323-8 ####[facility] LABCLIA [id number] [place] [address] ALP [Catalytic activity/Vol] 184 U/L High 38-113 [facility] Comment on above: Order Comment: Speci men Type: BLOOD SPECIMENOrdering Facility: [facility] Address: [address] [place], [place] [address] Performed By: #### 2 4323-8 ####[facility] LABCLIA [id number] [place] [address] ALT [Catalytic activity/Vol] 76 U/L High 10-54 [facility] Comment on above: Order Comment: Speci men Type: BLOOD SPECIMENOrdering Facility: [facility] Address: [address] [place] [address] Performed By: #### 2 4323-8 ####[facility] LABCLIA [id number] [place] [address] Anion gap [Moles/Vol] 10 mmol/L Normal 9-18 [facility] Comment on above: Order Comment: Speci men Type: BLOOD SPECIMENOrdering Facility: [facility] Address: [address] [place] [address] Performed By: #### 2 4323-8 ####[facility] LABCLIA [id number] [place] [address] AST [Catalytic activity/Vol] 46 U/L High 14-40 [facility] Comment on above: Order Comment: Speci men Type: BLOOD SPECIMENOrdering Facility: [facility] Address: [address] [place] [address] Performed By: #### 2 4323-8 ####[facility] LABCLIA [id number] [place] [address] Bilirubin [Mass/Vol] 0.7 mg/dL Normal 0.2-1.3 [facility] Comment on above: Order Comment: Speci men Type: BLOOD SPECIMENOrdering Facility: [facility] Address: [address] [place] [address] Performed By: #### 2 4323-8 ####[facility] LABCLIA [id number] [place] [address] Calcium [Mass/Vol] 9.4 mg/dL Normal 8.5-10.2 [facility] Comment on above: Order Comment: Speci men Type: BLOOD SPECIMENOrdering Facility: [facility] Address: [address] [place] [address] Performed By: #### 2 4323-8 ####[facility] LABCLIA [id number] [place] [address] Chloride [Moles/Vol] 91 mmol/L Low 97-105 [facility] Comment on above: Order Comment: Speci men Type: BLOOD SPECIMENOrdering Facility: [facility] Address: [address] [place] [address] Performed By: #### 2 4323-8 ####[facility] LABCLIA [id number] [place] [address] CO2 [Moles/Vol] 37 mmol/L High 22-30 [facility] Comment on above: Order Comment: Speci men Type: BLOOD SPECIMENOrdering Facility: [facility] Address: [address] [place] [address] Performed By: #### 2 4323-8 ####[facility] LABCLIA [id number] [place] [address] Creatinine [Mass/Vol] 1.64 mg/dL High 0.73-1.22 [facility] Comment on above: Order Comment: Speci men Type: BLOOD SPECIMENOrdering Facility: [facility] Address: [address] [place] [address] Performed By: #### 2 4323-8 ####[facility] LABCLIA [id number] [place] [address] ESTIMATED GLOMERULAR FILTRATION RATE 41 mL/min/1.73m??? Low >=60 [facility] Comment on above: Order Comment: Speci men Type: BLOOD SPECIMENOrdering Facility: [facility] Address: [address] [place] [address] Result Comment: Faye mated Glomerular Filtration Rate [...] actual GFR. Performed By: #### 2 4323-8 ####[facility] LABCLIA [id number] [place] [address] Glucose [Mass/Vol] 168 mg/dL High 74-99 [facility] Comment on above: Order Comment: Speci men Type: BLOOD SPECIMENOrdering Facility: [facility] Address: [address] [address] Result Comment: The [place] [employer] (ADA) provides guidance for cutoff [...] Standards of Medical Care in Diabetes 2016, [place] [employer]. Diabetes Care. 2016.39(Suppl 1). Performed By: #### 2 4323-8 ####[facility] LABCLIA [id number] [place] [address] Potassium [Moles/Vol] 3.8 mmol/L Normal 3.7-5.1 [facility] Comment on above: Order Comment: Speci men Type: BLOOD SPECIMENOrdering Facility: [facility] Address: [address] [address] Performed By: #### 2 4323-8 ####[facility] LABCLIA [id number] [place] [address] Protein [Mass/Vol] 7.5 g/dL Normal 6.3-8.0 [facility] Comment on above: Order Comment: Speci men Type: BLOOD SPECIMENOrdering Facility: [facility] Address: [address] [address] Performed By: #### 2 4323-8 ####[facility] LABCLIA [id number] [place] [address] Sodium [Moles/Vol] 138 mmol/L Normal 136-144 [facility] Comment on above: Order Comment: Speci men Type: BLOOD SPECIMENOrdering Facility: [facility] Address: [address] [address] Performed By: #### 2 4323-8 ####[facility] LABCLIA [id number] [place] [address] Urea nitrogen [Mass/Vol] 50 mg/dL High 9-24 [facility] Comment on above: Order Comment: Speci men Type: BLOOD SPECIMENOrdering Facility: [facility] Address: [place] [address] Performed By: #### 2 4323-8 ####[facility] LABCLIA [id number] [place] [address] Echocardiographyon Echocardiography [id number] .00CD:127 Normal [facility]/Clini c Noteon 11-20-2022 Family [...] mg= 1 cap(s), Oral, Daily Potassium Chloride (Scp-Ddqt-Fnr M20) 20 mEq oral tablet, extended release, [...] virus vaccine, inactivated 05/23/2013 Recorded Normal [facility] Comment on above: Result Comment: Elec tronically Signed By: RYANNE SEN, FLASH Tay.br\Date and Time Signed: 11/20/22 14:24 EDT Family [...] mg= 1 cap(s), Oral, Daily Potassium Chloride (Abe-Zika-Svx M20) 20 mEq oral tablet, extended release, [...] Former smoker, q (more content not included)... [facility] Comment on above: Result Comment: Elec tronically Signed By: RYANNE SEN, FLASH Holden\boogie\Date and Time Signed: 11/20/22 14:14 EDT RAD - MISCon 11-20-2022 RAD - MISC [id number] .00CD:127 [facility] CNPHollie 11-19-2022 CNPN [facility] BNPon 11-17-2022 Natriuretic peptide B (Bld) [Mass/Vol] 6221.0 pg/mL Critically high <=1,800.0 [facility] Comment on above: Performed By: #### T NS, PRBC #### [facility] [address] [place] [address] Dr. Benito To CBC AUTO DIFFon 11-17-2022 BASO # 0.1 103/ul Normal 0.0-0.1 [facility] Comment on above: Performed By: #### T NS, PRBC #### [facility] [address] [place] [address] Dr. Benito To Basophils/100 WBC (Bld) 1.1 % Normal 0.2-2.0 [facility] Comment on above: Performed By: #### T NS, PRBC #### [facility] [address] [place] [address] Dr. Benito To EO # 0.0 103/ul Normal 0.0-0.7 [facility] Comment on above: Performed By: #### T NS, PRBC #### [facility] [address] [place] [address] Dr. Benito To Eosinophils/100 WBC (Bld) 0.0 % Critically low 0.9-7.0 [facility] Comment on above: Performed By: #### T NS, PRBC #### [facility] [address] [place] [address] Dr. Benito To Erythrocyte distribution width (RBC) [Ratio] 23.8 % Critically high 11.0-15.0 [facility] Comment on above: Performed By: #### T NS, PRBC #### [facility] [address] [place] [address] Dr. Benito To Hematocrit (Bld) [Volume fraction] 22.0 % Critically low 42.0-54.0 [facility] Comment on above: Performed By: #### T NS, PRBC #### [facility] [address] [place] [address] Dr. Benito To Hemoglobin (Bld) [Mass/Vol] 7.0 g/dL Critically low 14.0-18.0 [facility] Comment on above: Performed By: #### T NS, PRBC #### [facility] [address] [place] [address] Dr. Benito To IG # 1.95 10e3/ul Critically high 0.00-0.03 [facility] Comment on above: Performed By: #### T NS, PRBC #### [facility] [address] [place] [address] Dr. Benito To IG % 24.9 % Critically high 0.0-0.5 [facility] Comment on above: Performed By: #### T NS, PRBC #### [facility] [address] [place] [address] Dr. Benito To LYMPH # 1.1 103/ul Critically low 1.2-3.8 [facility] Comment on above: Performed By: #### T NS, PRBC #### [facility] [address] [place] [address] Dr. Benito To Lymphocytes/100 WBC (Bld) 13.8 % Critically low 20.5-60.0 [facility] Comment on above: Performed By: #### T NS, PRBC #### [facility] [address] [place] [address] Dr. Benito To MANUAL DIFF REQ NO Normal [facility] Comment on above: Performed By: #### T NS, PRBC #### [facility] [address] [place] [address] Dr. Benito To MCH (RBC) [Entitic mass] 32.0 pg Normal 25.9-34.0 [facility] Comment on above: Performed By: #### T NS, PRBC #### [facility] [address] [place] [address] Dr. Benito To MCHC (RBC) [Mass/Vol] 31.8 g/dL Normal 29.9-35.2 [facility] Comment on above: Performed By: #### T NS, PRBC #### [facility] [address] [place] [address] Dr. Benito To MCV (RBC) [Entitic vol] 100.5 fL Critically high 80.0-94.0 [facility] Comment on above: Performed By: #### T NS, PRBC #### [facility] [address] [place] [address] Dr. Benito To MONO # 1.1 103/ul Critically high 0.3-0.8 [facility] Comment on above: Performed By: #### T NS, PRBC #### [facility] [address] [place] [address] Dr. Benito To Monocytes/100 WBC (Bld) 14.4 % Critically high 1.7-12.0 [facility] Comment on above: Performed By: #### T NS, PRBC #### [facility] [address] [place] [address] Dr. Benito To NEUT # 3.6 103/ul Normal 1.4-6.5 [facility] Comment on above: Performed By: #### T NS, PRBC #### [facility] [address] [place] [address] Dr. Benito To Neutrophils/100 WBC (Bld) 45.8 % Normal 43.0-75.0 [facility] Comment on above: Performed By: #### T NS, PRBC #### [facility] [address] [place] [address] Dr. Benito To Platelet mean volume (Bld) [Entitic vol] 0.0 fL Critically low 9.5-13.5 [facility] Comment on above: Performed By: #### T NS, PRBC #### [facility] [address] [place] [address] Dr. Benito To PLT 92 103/ul Critically low 150-450 [facility] Comment on above: Performed By: #### T NS, PRBC #### [facility] [address] [place] [address] Dr. Benito To RBC 2.19 106/ul Critically low 4.70-6.10 [facility] Comment on above: Performed By: #### T NS, PRBC #### [facility] [address] [address] [address] Benito To WBC 7.8 103/ul Normal 4.0-11.0 [facility] Comment on above: Performed By: #### T NS, PRBC #### [facility] [address] [place] [address] Dr. Benito To PROF 14(COMP METB)on 023 Albumin [Mass/Vol] 2.5 g/dL Critically low 3.4-5.0 [facility] Comment on above: Performed By: #### H GBHCT #### [facility] [address] [place] [address] Dr. Benito To Albumin/Globulin [Mass ratio] 0.6 {ratio} Normal [facility] Comment on above: Performed By: #### H GBHCT #### [facility] [address] [place] [address] Dr. Benito To ALP [Catalytic activity/Vol] 148 U/L Critically high 46-116 [facility] Comment on above: Performed By: #### H GBHCT #### [facility] [address] [place] [address] Dr. Benito To ALT [Catalytic activity/Vol] 61 U/L Normal 16-63 [facility] Comment on above: Performed By: #### H GBHCT #### [facility] [address] [place] [address] Dr. Benito To Anion gap [Moles/Vol] 8.5 mmol/L Normal [facility] Comment on above: Performed By: #### H GBHCT #### [facility] [address] [place] [address] Dr. Benito To AST [Catalytic activity/Vol] 43 U/L Critically high 15-37 [facility] Comment on above: Performed By: #### H GBHCT #### [facility] [address] [place] [address] Dr. Benito To Bilirubin [Mass/Vol] 0.8 mg/dL Normal 0.2-1.0 [facility] Comment on above: Performed By: #### H GBHCT #### [facility] [address] [address] [address] Benito To Calcium [Mass/Vol] 8.4 mg/dL Critically low 8.5-10.1 [facility] Comment on above: Performed By: #### H GBHCT #### [facility] [address] [address] [address] Benito To Chloride [Moles/Vol] 101 mmol/L Normal 98-107 [facility] Comment on above: Performed By: #### H GBHCT #### [facility] [address] [address] [address] Benito To CO2 [Moles/Vol] 37.8 mmol/L Critically high 21.0-32.0 [facility] Comment on above: Performed By: #### H GBHCT #### [facility] [address] [address] [address] Benito To Creatinine [Mass/Vol] 1.77 mg/dL Critically high 0.70-1.30 [facility] Comment on above: Performed By: #### H GBHCT #### [facility] [address] [address] [address] Benito To EGFR-AF MICRONESIAN 45 mL/min/1.73m2 Critically low >=60 [facility] Comment on above: Performed By: #### H GBHCT #### [facility] [address] [address] [address] Benito To EGFR-NON AF MICRONESIAN 37 mL/min/1.73m2 Critically low >=60 [facility] Comment on above: Performed By: #### H GBHCT #### [facility] [address] [address] [address] Benito To Globulin (S) [Mass/Vol] 4.3 g/dL Normal [facility] Comment on above: Performed By: #### H GBHCT #### [facility] [address] [address] [address] Benito To Glucose [Mass/Vol] 107 mg/dL Critically high 74-106 [facility] Comment on above: Performed By: #### H GBHCT #### [facility] [address] [address] [address] Benito To Potassium [Moles/Vol] 3.3 mmol/L Critically low 3.5-5.1 [facility] Comment on above: Performed By: #### H GBHCT #### [facility] [address] [place] [address] Dr. Benito To Protein [Mass/Vol] 6.8 g/dL Normal 6.4-8.2 [facility] Comment on above: Performed By: #### H GBHCT #### [facility] [address] [place] [address] Dr. Benito To Sodium [Moles/Vol] 144 mmol/L Normal 136-145 [facility] Comment on above: Performed By: #### H GBHCT #### [facility] [address] [place] [address] Dr. Benito To Urea nitrogen [Mass/Vol] 40.0 mg/dL Critically high 7.0-18.0 [facility] Comment on above: Performed By: #### H GBHCT #### [facility] [address] [place] [address] Dr. Benito To Urea nitrogen/Creatinine [Mass ratio] 22.6 mg/mg Normal [facility] Comment on above: Performed By: #### H GBHCT #### [facility] [address] [place] [address] Dr. Benito To BNPon 11-16-2022 Natriuretic peptide B (Bld) [Mass/Vol] 96077.0 pg/mL Critically high <=1,800.0 [facility] Comment on above: Performed By: #### T NS, PRBC #### [facility] [address] [place] [address] Dr. Benito To CBC AUTO DIFFon 11-16-2022 BASO # 0.1 103/ul Normal 0.0-0.1 [facility] Comment on above: Performed By: #### T NS, PRBC #### [facility] [address] [place] [address] Dr. Benito To Basophils/100 WBC (Bld) 0.6 % Normal 0.2-2.0 [facility] Comment on above: Performed By: #### T NS, PRBC #### [facility] [address] [place] [address] Dr. Benito To EO # 0.6 103/ul Normal 0.0-0.7 [facility] Comment on above: Performed By: #### T NS, PRBC #### [facility] [address] [place] [address] Dr. Benito To Eosinophils/100 WBC (Bld) 5.1 % Normal 0.9-7.0 [facility] Comment on above: Performed By: #### T NS, PRBC #### [facility] [address] [place] [address] Dr. Benito To Erythrocyte distribution width (RBC) [Ratio] 23.6 % Critically high 11.0-15.0 [facility] Comment on above: Performed By: #### T NS, PRBC #### [facility] [address] [place] [address] Dr. Benito To Hematocrit (Bld) [Volume fraction] 22.3 % Critically low 42.0-54.0 [facility] Comment on above: Performed By: #### T NS, PRBC #### [facility] [address] [place] [address] Dr. Benito To Hemoglobin (Bld) [Mass/Vol] 7.2 g/dL Critically low 14.0-18.0 [facility] Comment on above: Performed By: #### T NS, PRBC #### [facility] [address] [place] [address] Dr. Benito To IG # 1.56 10e3/ul Critically high 0.00-0.03 [facility] Comment on above: Performed By: #### T NS, PRBC #### [facility] [address] [place] [address] Dr. Benito To IG % 14.4 % Critically high 0.0-0.5 [facility] Comment on above: Performed By: #### T NS, PRBC #### [facility] [address] [place] [address] Dr. Benito To LYMPH # 1.3 103/ul Normal 1.2-3.8 [facility] Comment on above: Performed By: #### T NS, PRBC #### [facility] [address] [place] [address] Dr. Benito To Lymphocytes/100 WBC (Bld) 12.1 % Critically low 20.5-60.0 [facility] Comment on above: Performed By: #### T NS, PRBC #### [facility] [address] [place] [address] Dr. Benito To MANUAL DIFF REQ NO Normal [facility] Comment on above: Performed By: #### T NS, PRBC #### [facility] [address] [place] [address] Dr. Benito To MCH (RBC) [Entitic mass] 32.4 pg Normal 25.9-34.0 [facility] Comment on above: Performed By: #### T NS, PRBC #### [facility] [address] [place] [address] Dr. Benito To MCHC (RBC) [Mass/Vol] 32.3 g/dL Normal 29.9-35.2 [facility] Comment on above: Performed By: #### T NS, PRBC #### [facility] [address] [place] [address] Dr. Benito To MCV (RBC) [Entitic vol] 100.5 fL Critically high 80.0-94.0 [facility] Comment on above: Performed By: #### T NS, PRBC #### [facility] [address] [place] [address] Dr. Benito To MONO # 1.7 103/ul Critically high 0.3-0.8 [facility] Comment on above: Performed By: #### T NS, PRBC #### [facility] [address] [place] [address] Dr. Benito To Monocytes/100 WBC (Bld) 15.3 % Critically high 1.7-12.0 [facility] Comment on above: Performed By: #### T NS, PRBC #### [facility] [address] [place] [address] Dr. Benito To NEUT # 5.7 103/ul Normal 1.4-6.5 [facility] Comment on above: Performed By: #### T NS, PRBC #### [facility] [address] [place] [address] Dr. Benito To Neutrophils/100 WBC (Bld) 52.5 % Normal 43.0-75.0 [facility] Comment on above: Performed By: #### T NS, PRBC #### [facility] [address] [place] [address] Dr. Benito To Platelet mean volume (Bld) [Entitic vol] 0.0 fL Critically low 9.5-13.5 [facility] Comment on above: Performed By: #### T NS, PRBC #### [facility] [address] [place] [address] Dr. Benito To PLT 83 103/ul Critically low 150-450 [facility] Comment on above: Performed By: #### T NS, PRBC #### [facility] [address] [place] [address] Dr. Benito To RBC 2.22 106/ul Critically low 4.70-6.10 [facility] Comment on above: Performed By: #### T NS, PRBC #### [facility] [address] [place] [address] Dr. Benito To WBC 10.8 103/ul Normal 4.0-11.0 [facility] Comment on above: Performed By: #### T NS, PRBC #### [facility] [address] [place] [address] Dr. Benito To PROF 14(COMP METB)on 023 Albumin [Mass/Vol] 2.5 g/dL Critically low 3.4-5.0 [facility] Comment on above: Performed By: #### T NS, PRBC #### [facility] [address] [address] [address] Benito To Albumin/Globulin [Mass ratio] 0.6 {ratio} Normal [facility] Comment on above: Performed By: #### T NS, PRBC #### [facility] [address] [address] [address] Benito To ALP [Catalytic activity/Vol] 133 U/L Critically high 46-116 [facility] Comment on above: Performed By: #### T NS, PRBC #### [facility] [address] [address] [address] Benito To ALT [Catalytic activity/Vol] 56 U/L Normal 16-63 [facility] Comment on above: Performed By: #### T NS, PRBC #### [facility] [address] [place] [address] Dr. Benito To Anion gap [Moles/Vol] 11.8 mmol/L Normal [facility] Comment on above: Performed By: #### T NS, PRBC #### [facility] [address] [place] [address] Dr. Benito To AST [Catalytic activity/Vol] 35 U/L Normal 15-37 [facility] Comment on above: Performed By: #### T NS, PRBC #### [facility] [address] [place] [address] Dr. Benito To Bilirubin [Mass/Vol] 0.9 mg/dL Normal 0.2-1.0 [facility] Comment on above: Performed By: #### T NS, PRBC #### [facility] [address] [place] [address] Dr. Benito To Calcium [Mass/Vol] 8.4 mg/dL Critically low 8.5-10.1 [facility] Comment on above: Performed By: #### T NS, PRBC #### [facility] [address] [place] [address] Dr. Benito To Chloride [Moles/Vol] 101 mmol/L Normal 98-107 [facility] Comment on above: Performed By: #### T NS, PRBC #### [facility] [address] [address] [address] Benito To CO2 [Moles/Vol] 32.2 mmol/L Critically high 21.0-32.0 [facility] Comment on above: Performed By: #### T NS, PRBC #### [facility] [address] [place] [address] Dr. Benito To Creatinine [Mass/Vol] 1.89 mg/dL Critically high 0.70-1.30 [facility] Comment on above: Performed By: #### T NS, PRBC #### [facility] [address] [place] [address] Dr. Benito To EGFR-AF MICRONESIAN 41 mL/min/1.73m2 Critically low >=60 [facility] Comment on above: Performed By: #### T NS, PRBC #### [facility] [address] [place] [address] Dr. Benito To EGFR-NON AF MICRONESIAN 34 mL/min/1.73m2 Critically low >=60 [facility] Comment on above: Performed By: #### T NS, PRBC #### [facility] [address] [place] [address] Dr. Benito To Globulin (S) [Mass/Vol] 4.5 g/dL Normal [facility] Comment on above: Performed By: #### T NS, PRBC #### [facility] [address] [place] [address] Dr. Benito To Glucose [Mass/Vol] 105 mg/dL Normal 74-106 [facility] Comment on above: Performed By: #### T NS, PRBC #### [facility] [address] [place] [address] Dr. Benito To Potassium [Moles/Vol] 2.9 mmol/L Critically low 3.5-5.1 [facility] Comment on above: Performed By: #### T NS, PRBC #### [facility] [address] [place] [address] Dr. Benito To Protein [Mass/Vol] 7.0 g/dL Normal 6.4-8.2 [facility] Comment on above: Performed By: #### T NS, PRBC #### [facility] [address] [place] [address] Dr. Benito To Sodium [Moles/Vol] 140 mmol/L Normal 136-145 [facility] Comment on above: Performed By: #### T NS, PRBC #### [facility] [address] [place] [address] Dr. Benito To Urea nitrogen [Mass/Vol] 39.0 mg/dL Critically high 7.0-18.0 [facility] Comment on above: Performed By: #### T NS, PRBC #### [facility] [address] [place] [address] Dr. Benito To Urea nitrogen/Creatinine [Mass ratio] 20.6 mg/mg Normal [facility] Comment on above: Performed By: #### T NS, PRBC #### [facility] [address] [place] [address] Dr. Benito To XR CHEST 1 Von [...] JOSIE MIRAMONTES Date: 2022-11-16 13:55 Normal [facility] W MANUAL DIFFon 11-16-19 23 ANISOCYTOSIS 3+ Normal [facility] Comment on above: Performed By: #### T NS, PRBC #### [facility] [address] [place] [address] Dr. Benito To ATYPICAL LYMPH # 0.71 103/ul Normal [facility] Comment on above: Performed By: #### T NS, PRBC #### [facility] [address] [place] [address] Dr. Benito To ATYPICAL LYMPH % 6 % Normal [facility] Comment on above: Performed By: #### T NS, PRBC #### [facility] [address] [place] [address] Dr. Benito To BAND # 1.3 103/ul Critically high 0.0-0.3 [facility] Comment on above: Performed By: #### T NS, PRBC #### [facility] [address] [place] [address] Dr. Benito To BAND % 11 % Critically high 0-5 [facility] Comment on above: Performed By: #### T NS, PRBC #### [facility] [address] [place] [address] Dr. Bentio To BASOM # 0.00 103/ul Normal 0.00-0.10 [facility] Comment on above: Performed By: #### T NS, PRBC #### [facility] [address] [place] [address] Dr. Benito To BASOM % 0.0 % Critically low 0.2-2.0 [facility] Comment on above: Performed By: #### T NS, PRBC #### [facility] [address] [place] [address] Dr. Benito To BLAST # Normal [facility] Comment on above: Performed By: #### T NS, PRBC #### [facility] [address] [place] [address] Dr. Benito To BLAST % Normal [facility] Comment on above: Performed By: #### T NS, PRBC #### [facility] [address] [place] [address] Dr. Benito To CORRECTED WBC Normal 4.0-11.0 [facility] Comment on above: Performed By: #### T NS, PRBC #### [facility] [address] [place] [address] Dr. Benito To EOS # 0.00 103/ul Normal 0.00-0.70 [facility] Comment on above: Performed By: #### T NS, PRBC #### [facility] [address] [place] [address] Dr. Benito To EOS% 0.0 % Critically low 0.9-7.0 [facility] Comment on above: Performed By: #### T NS, PRBC #### [facility] [address] [place] [address] Dr. Benito To HCT 24.3 % Critically low 42.0-54.0 [facility] Comment on above: Performed By: #### T NS, PRBC #### [facility] [address] [address] [address] Benito To HGB 7.5 g/dl Critically low 14.0-18.0 [facility] Comment on above: Performed By: #### T NS, PRBC #### [facility] [address] [place] [address] Dr. Benito To LYMPHM # 1.55 103/ul Normal 1.20-3.80 [facility] Comment on above: Performed By: #### T NS, PRBC #### [facility] [address] [place] [address] Dr. Benito To LYMPHM% 13.0 % Critically low 20.5-60.0 [facility] Comment on above: Performed By: #### T NS, PRBC #### [facility] [address] [place] [address] Dr. Benito To MCH 30.9 pg Normal 25.9-34.0 [facility] Comment on above: Performed By: #### T NS, PRBC #### [facility] [address] [place] [address] Dr. Benito To MCHC 30.9 g/dl Normal 29.9-35.2 [facility] Comment on above: Performed By: #### T NS, PRBC #### [facility] [address] [place] [address] Dr. Benito To MCV 100.0 fL Critically high 80.0-94.0 [facility] Comment on above: Performed By: #### T NS, PRBC #### [facility] [address] [place] [address] Dr. Benito To METAMYELOCYTE # Normal [facility] Comment on above: Performed By: #### T NS, PRBC #### [facility] [address] [place] [address] Dr. Benito To METAMYELOCYTE % Normal [facility] Comment on above: Performed By: #### T NS, PRBC #### [facility] [address] [place] [address] Dr. Benito To MONOM# 0.59 103/ul Normal 0.30-0.80 [facility] Comment on above: Performed By: #### T NS, PRBC #### [facility] [address] [place] [address] Dr. Benito To MONOM% 5.0 % Normal 1.7-12.0 [facility] Comment on above: Performed By: #### T NS, PRBC #### [facility] [address] [place] [address] Dr. Benito To MPV 0.0 fL Critically low 9.5-13.5 [facility] Comment on above: Performed By: #### T NS, PRBC #### [facility] [address] [place] [address] Dr. Benito To MYELOCYTE # 0.2 103/ul Normal [facility] Comment on above: Performed By: #### T NS, PRBC #### [facility] [address] [place] [address] Dr. Benito To MYELOCYTE % 2 % Normal [facility] Comment on above: Performed By: #### T NS, PRBC #### [facility] [address] [place] [address] Dr. Benito To NRBC Normal [facility] Comment on above: Performed By: #### T NS, PRBC #### [facility] [address] [place] [address] Dr. Benito To PLT 83 103/ul Critically low 150-450 [facility] Comment on above: Performed By: #### T NS, PRBC #### [facility] [address] [place] [address] Dr. Benito To RBC 2.43 106/ul Critically low 4.70-6.10 [facility] Comment on above: Performed By: #### T NS, PRBC #### [facility] [address] [place] [address] Dr. Benito To RDW 23.9 % Critically high 11.0-15.0 [facility] Comment on above: Performed By: #### T NS, PRBC #### [facility] [address] [place] [address] Dr. Benito To SEG # 7.50 103/ul Critically high 1.40-6.50 [facility] Comment on above: Performed By: #### T NS, PRBC #### [facility] [address] [place] [address] Dr. Benito To SEG % 63.0 % Normal 43.0-75.0 [facility] Comment on above: Performed By: #### T NS, PRBC #### [facility] [address] [place] [address] Dr. Benito To WBC 11.9 103/ul Critically high 4.0-11.0 [facility] Comment on above: Performed By: #### T NS, PRBC #### [facility] [address] [place] [address] Dr. Benito To PROF 14(COMP METB)on 023 Albumin [Mass/Vol] 2.6 g/dL Critically low 3.4-5.0 [facility] Comment on above: Performed By: #### T NS, PRBC #### [facility] [address] [place] [address] Dr. Benito To Albumin/Globulin [Mass ratio] 0.6 {ratio} Normal [facility] Comment on above: Performed By: #### T NS, PRBC #### [facility] [address] [place] [address] Dr. Benito To ALP [Catalytic activity/Vol] 139 U/L Critically high 46-116 [facility] Comment on above: Performed By: #### T NS, PRBC #### [facility] [address] [address] [address] Benito To ALT [Catalytic activity/Vol] 52 U/L Normal 16-63 [facility] Comment on above: Performed By: #### T NS, PRBC #### [facility] [address] [place] [address] Dr. Benito To Anion gap [Moles/Vol] 12.4 mmol/L Normal [facility] Comment on above: Performed By: #### T NS, PRBC #### [facility] [address] [place] [address] Dr. Benito To AST [Catalytic activity/Vol] 31 U/L Normal 15-37 [facility] Comment on above: Performed By: #### T NS, PRBC #### [facility] [address] [place] [address] Dr. Benito To Bilirubin [Mass/Vol] 1.3 mg/dL Critically high 0.2-1.0 [facility] Comment on above: Performed By: #### T NS, PRBC #### [facility] [address] [place] [address] Dr. Benito To Calcium [Mass/Vol] 8.2 mg/dL Critically low 8.5-10.1 [facility] Comment on above: Performed By: #### T NS, PRBC #### [facility] [address] [place] [address] Dr. Benito To Chloride [Moles/Vol] 100 mmol/L Normal 98-107 [facility] Comment on above: Performed By: #### T NS, PRBC #### [facility] [address] [place] [address] Dr. Benito To CO2 [Moles/Vol] 32.5 mmol/L Critically high 21.0-32.0 [facility] Comment on above: Performed By: #### T NS, PRBC #### [facility] [address] [place] [address] Dr. Benito To Creatinine [Mass/Vol] 1.85 mg/dL Critically high 0.70-1.30 [facility] Comment on above: Performed By: #### T NS, PRBC #### [facility] [address] [address] [address] Benito To EGFR-AF MICRONESIAN 43 mL/min/1.73m2 Critically low >=60 [facility] Comment on above: Performed By: #### T NS, PRBC #### [facility] [address] [address] [address] Benito To EGFR-NON AF MICRONESIAN 35 mL/min/1.73m2 Critically low >=60 [facility] Comment on above: Performed By: #### T NS, PRBC #### [facility] [address] [address] [address] Benito To Globulin (S) [Mass/Vol] 4.6 g/dL Normal [facility] Comment on above: Performed By: #### T NS, PRBC #### [facility] [address] [place] [address] Dr. Benito To Glucose [Mass/Vol] 124 mg/dL Critically high 74-106 [facility] Comment on above: Performed By: #### T NS, PRBC #### [facility] [address] [place] [address] Dr. Benito To Potassium [Moles/Vol] 3.9 mmol/L Normal 3.5-5.1 [facility] Comment on above: Performed By: #### T NS, PRBC #### [facility] [address] [place] [address] Dr. Benito To Protein [Mass/Vol] 7.2 g/dL Normal 6.4-8.2 [facility] Comment on above: Performed By: #### T NS, PRBC #### [facility] [address] [place] [address] Dr. Benito oT Sodium [Moles/Vol] 141 mmol/L Normal 136-145 [facility] Comment on above: Performed By: #### T NS, PRBC #### [facility] [address] [address] [address] Benito To Urea nitrogen [Mass/Vol] 36.0 mg/dL Critically high 7.0-18.0 [facility] Comment on above: Performed By: #### T NS, PRBC #### [facility] [address] [address] [address] Benito To Urea nitrogen/Creatinine [Mass ratio] 19.5 mg/mg Normal [facility] Comment on above: Performed By: #### T NS, PRBC #### [facility] [address] [place] [address] Dr. Benito To XR CHEST 1 Von [...] Progression of moderate bibasilar infiltrates likely parenchymal consolidation/pneumon ia and pleural effusions Electronically authenticated by: JOSIE MIRAMONTES Date: 2022-11-15 09:46 Normal [facility] CBC AUTO DIFFon 11-14-2022 BASO # 0.0 103/ul Normal 0.0-0.1 [facility] Comment on above: Performed By: #### H GBHCT #### [facility] [address] [place] [address] Dr. Benito To Basophils/100 WBC (Bld) 0.3 % Normal 0.2-2.0 [facility] Comment on above: Performed By: #### H GBHCT #### [facility] [address] [place] [address] Dr. Benito To EO # 0.0 103/ul Normal 0.0-0.7 [facility] Comment on above: Performed By: #### H GBHCT #### [facility] [address] [place] [address] Dr. Benito To Eosinophils/100 WBC (Bld) 0.3 % Critically low 0.9-7.0 [facility] Comment on above: Performed By: #### H GBHCT #### [facility] [address] [address] [address] Benito To Erythrocyte distribution width (RBC) [Ratio] 23.7 % Critically high 11.0-15.0 [facility] Comment on above: Performed By: #### H GBHCT #### [facility] Laboratory [address] [place] [address] Dr. Benito To Hematocrit (Bld) [Volume fraction] 23.7 % Critically low 42.0-54.0 [facility] Comment on above: Performed By: #### H GBHCT #### [facility] [address] [place] [address] Dr. Benito To Hemoglobin (Bld) [Mass/Vol] 7.6 g/dL Critically low 14.0-18.0 [facility] Comment on above: Performed By: #### H GBHCT #### [facility] [address] [place] [address] Dr. Benito To IG # 0.82 10e3/ul Critically high 0.00-0.03 [facility] Comment on above: Performed By: #### H GBHCT #### [facility] [address] [place] [address] Dr. Benito To IG % 7.0 % Critically high 0.0-0.5 [facility] Comment on above: Performed By: #### H GBHCT #### [facility] [address] [place] [address] Dr. Benito To LYMPH # 0.8 103/ul Critically low 1.2-3.8 [facility] Comment on above: Performed By: #### H GBHCT #### [facility] [address] [place] [address] Dr. Benito To Lymphocytes/100 WBC (Bld) 7.0 % Critically low 20.5-60.0 [facility] Comment on above: Performed By: #### H GBHCT #### [facility] [address] [place] [address] Dr. Benito To MANUAL DIFF REQ NO Normal [facility] Comment on above: Performed By: #### H GBHCT #### [facility] [address] [address] [address] Benito To MCH (RBC) [Entitic mass] 31.9 pg Normal 25.9-34.0 [facility] Comment on above: Performed By: #### H GBHCT #### [facility] [address] [place] [address] Dr. Benito To MCHC (RBC) [Mass/Vol] 32.1 g/dL Normal 29.9-35.2 [facility] Comment on above: Performed By: #### H GBHCT #### [facility] [address] [place] [address] Dr. Benito To MCV (RBC) [Entitic vol] 99.6 fL Critically high 80.0-94.0 [facility] Comment on above: Performed By: #### H GBHCT #### [facility] [address] [place] [address] Dr. Benito To MONO # 2.3 103/ul Critically high 0.3-0.8 [facility] Comment on above: Performed By: #### H GBHCT #### [facility] [address] [place] [address] Dr. Benito To Monocytes/100 WBC (Bld) 19.2 % Critically high 1.7-12.0 [facility] Comment on above: Performed By: #### H GBHCT #### [facility] [address] [place] [address] Dr. Benito To NEUT # 7.8 103/ul Critically high 1.4-6.5 [facility] Comment on above: Performed By: #### H GBHCT #### [facility] [address] [place] [address] Dr. Benito To Neutrophils/100 WBC (Bld) 66.2 % Normal 43.0-75.0 [facility] Comment on above: Performed By: #### H GBHCT #### [facility] [address] [place] [address] Dr. Benito To Platelet mean volume (Bld) [Entitic vol] 14.7 fL Critically high 9.5-13.5 [facility] Comment on above: Performed By: #### H GBHCT #### [facility] [address] [place] [address] Dr. Benito To PLT 73 103/ul Critically low 150-450 [facility] Comment on above: Performed By: #### H GBHCT #### [facility] [address] [place] [address] Dr. Benito To RBC 2.38 106/ul Critically low 4.70-6.10 [facility] Comment on above: Performed By: #### H GBHCT #### [facility] [address] [place] [address] Dr. Benito To WBC 11.7 103/ul Critically high 4.0-11.0 [facility] Comment on above: Performed By: #### H GBHCT #### [facility] [address] [place] [address] Dr. Benito To CBC W MANUAL DIFFon 11-15-19 23 ANISOCYTOSIS 3+ Normal [facility] Comment on above: Performed By: #### T NS, PRBC #### [facility] [address] [place] [address] Dr. Benito To ATYPICAL LYMPH # Normal [facility] Comment on above: Performed By: #### T NS, PRBC #### [facility] [address] [place] [address] Dr. Benito To ATYPICAL LYMPH % Normal [facility] Comment on above: Performed By: #### T NS, PRBC #### [facility] [address] [place] [address] Dr. Benito To BAND # 0.2 103/ul Normal 0.0-0.3 [facility] Comment on above: Performed By: #### T NS, PRBC #### [facility] [address] [place] [address] Dr. Benito To BAND % 2 % Normal 0-5 [facility] Comment on above: Performed By: #### T NS, PRBC #### [facility] [address] [address] [address] Benito To BASOM # 0.00 103/ul Normal 0.00-0.10 [facility] Comment on above: Performed By: #### T NS, PRBC #### [facility] [address] [place] [address] Dr. Benito To BASOM % 0.0 % Critically low 0.2-2.0 [facility] Comment on above: Performed By: #### T NS, PRBC #### [facility] [address] [place] [address] Dr. Benito To BLAST # Normal [facility] Comment on above: Performed By: #### T NS, PRBC #### [facility] [address] [place] [address] Dr. Benito To BLAST % Normal [facility] Comment on above: Performed By: #### T NS, PRBC #### [facility] [address] [place] [address] Dr. Benito To CORRECTED WBC Normal 4.0-11.0 [facility] Comment on above: Performed By: #### T NS, PRBC #### [facility] [address] [place] [address] Dr. Benito To EOS # 0.00 103/ul Normal 0.00-0.70 [facility] Comment on above: Performed By: #### T NS, PRBC #### [facility] [address] [place] [address] Dr. Benito To EOS% 0.0 % Critically low 0.9-7.0 [facility] Comment on above: Performed By: #### T NS, PRBC #### [facility] [address] [place] [address] Dr. Benito To HCT 20.3 % Critically low 42.0-54.0 [facility] Comment on above: Performed By: #### T NS, PRBC #### [facility] [address] [place] [address] Dr. Benito To HGB 6.4 g/dl Critically low 14.0-18.0 [facility] Comment on above: Performed By: #### T NS, PRBC #### [facility] [address] [address] [address] Benito To LYMPHM # 1.13 103/ul Critically low 1.20-3.80 [facility] Comment on above: Performed By: #### T NS, PRBC #### [facility] [address] [address] [address] Benito To LYMPHM% 10.0 % Critically low 20.5-60.0 [facility] Comment on above: Performed By: #### T NS, PRBC #### [facility] [address] [address] [address] Benito To MCH 31.5 pg Normal 25.9-34.0 [facility] Comment on above: Performed By: #### T NS, PRBC #### [facility] [address] [address] [address] Benito To MCHC 31.5 g/dl Normal 29.9-35.2 [facility] Comment on above: Performed By: #### T NS, PRBC #### [facility] [address] [address] [address] Benito To MCV 100.0 fL Critically high 80.0-94.0 [facility] Comment on above: Performed By: #### T NS, PRBC #### [facility] [address] [address] [address] Benito To METAMYELOCYTE # 0.5 103/ul Normal [facility] Comment on above: Performed By: #### T NS, PRBC #### [facility] [address] [address] [address] Beinto To METAMYELOCYTE % 4 % Normal [facility] Comment on above: Performed By: #### T NS, PRBC #### [facility] [address] [address] [address] Benito To MICROCYTOSIS 1+ Normal [facility] Comment on above: Performed By: #### T NS, PRBC #### [facility] [address] [address] [address] Benito To MONOM# 0.90 103/ul Critically high 0.30-0.80 [facility] Comment on above: Performed By: #### T NS, PRBC #### [facility] [address] [place] [address] Dr. Benito To MONOM% 8.0 % Normal 1.7-12.0 [facility] Comment on above: Performed By: #### T NS, PRBC #### [facility] [address] [place] [address] Dr. Benito To MYELOCYTE # Normal [facility] Comment on above: Performed By: #### T NS, PRBC #### [facility] [address] [place] [address] Dr. Benito To MYELOCYTE % Normal [facility] Comment on above: Performed By: #### T NS, PRBC #### [facility] [address] [place] [address] Dr. Benito To NRBC Normal [facility] Comment on above: Performed By: #### T NS, PRBC #### [facility] [address] [place] [address] Dr. Benito To PLT 78 103/ul Critically low 150-450 [facility] Comment on above: Performed By: #### T NS, PRBC #### [facility] [address] [place] [address] Dr. Benito To RBC 2.03 106/ul Critically low 4.70-6.10 [facility] Comment on above: Performed By: #### T NS, PRBC #### [facility] [address] [place] [address] Dr. Benito To RDW 25.1 % Critically high 11.0-15.0 [facility] Comment on above: Performed By: #### T NS, PRBC #### [facility] [address] [place] [address] Dr. Benito To SEG # 8.59 103/ul Critically high 1.40-6.50 [facility] Comment on above: Performed By: #### T NS, PRBC #### [facility] [address] [place], [place] [address] Dr. Benito To SEG % 76.0 % Critically high 43.0-75.0 [facility] Comment on above: Performed By: #### T NS, PRBC #### [facility] [address] [place], [place] [address] Dr. Benito To WBC 11.3 103/ul Critically high 4.0-11.0 [facility] Comment on above: Performed By: #### T NS, PRBC #### [facility] [address] [place], [place] [address] Dr. Benito To ECHOCARDIO M/2D COMPLETEon 0 11-14-2022 ECHOCARDIO M/2D COMPLETE Patient: SANDIP BROUSSARD Exam Date: 11/14/2022 : 1940 Gender:M Ordering : DR FLASH PEARL . Admission #: [id number] Family : Order #: [id number] CLICK HERE TO VIEW EXAM ECHOCARDIOGRAM REPORT [...] Gomez M.D. on 11/14/2022 at 20:08 Normal [facility] PRBC LEUKOREDUCEDon 11-15-19 23 ABO and Rh group Nom (Bld) Cross Match Result Compatible Unit Blood Type A Pos Unit Number [id number] Status Information Issued Product ID Red Blood Cells Product Code [id number] Issue Date/Time [id number] Normal [facility] Comment on above: Performed By: #### P RBC, TNS #### [facility] [address] [place] [address] Dr. Benito To PROF 14(COMP METB)on 023 Albumin [Mass/Vol] 2.8 g/dL Critically low 3.4-5.0 [facility] Comment on above: Performed By: #### H H #### [facility] [address] [place] [address] Dr. Benito To Albumin/Globulin [Mass ratio] 0.6 {ratio} Normal [facility] Comment on above: Performed By: #### H H #### [facility] [address] [place] [address] Dr. Benito To ALP [Catalytic activity/Vol] 146 U/L Critically high 46-116 [facility] Comment on above: Performed By: #### H H #### [facility] [address] [place] [address] Dr. Benito To ALT [Catalytic activity/Vol] 55 U/L Normal 16-63 [facility] Comment on above: Performed By: #### H H #### [facility] [address] [place] [address] Dr. Benito To Anion gap [Moles/Vol] 12.9 mmol/L Normal [facility] Comment on above: Performed By: #### H H #### [facility] [address] [place] [address] Dr. Benito To AST [Catalytic activity/Vol] 30 U/L Normal 15-37 [facility] Comment on above: Performed By: #### H H #### [facility] [address] [place] [address] Dr. Benito To Bilirubin [Mass/Vol] 1.3 mg/dL Critically high 0.2-1.0 [facility] Comment on above: Performed By: #### H H #### [facility] [address] [address] [address] Benito To Calcium [Mass/Vol] 8.6 mg/dL Normal 8.5-10.1 [facility] Comment on above: Performed By: #### H H #### [facility] [address] [address] [address] Benito To Chloride [Moles/Vol] 103 mmol/L Normal 98-107 [facility] Comment on above: Performed By: #### H H #### [facility] [address] [place] [address] Dr. Benito To CO2 [Moles/Vol] 32.2 mmol/L Critically high 21.0-32.0 [facility] Comment on above: Performed By: #### H H #### [facility] [address] [place] [address] Dr. Benito To Creatinine [Mass/Vol] 1.87 mg/dL Critically high 0.70-1.30 [facility] Comment on above: Performed By: #### H H #### [facility] [address] [place] [address] Dr. Benito To EGFR-AF MICRONESIAN 42 mL/min/1.73m2 Critically low >=60 [facility] Comment on above: Performed By: #### H H #### [facility] [address] [address] [address] Benito To EGFR-NON AF MICRONESIAN 35 mL/min/1.73m2 Critically low >=60 [facility] Comment on above: Performed By: #### H H #### [facility] [address] [place] [address] Dr. Benito To Globulin (S) [Mass/Vol] 4.6 g/dL Normal [facility] Comment on above: Performed By: #### H H #### [facility] [address] [place] [address] Dr. Benito To Glucose [Mass/Vol] 113 mg/dL Critically high 74-106 [facility] Comment on above: Performed By: #### H H #### [facility] [address] [place] [address] Dr. Benito To Potassium [Moles/Vol] 4.1 mmol/L Normal 3.5-5.1 [facility] Comment on above: Performed By: #### H H #### [facility] [address] [place] [address] Dr. Benito To Protein [Mass/Vol] 7.4 g/dL Normal 6.4-8.2 [facility] Comment on above: Performed By: #### H H #### [facility] [address] [place] [address] Dr. Benito To Sodium [Moles/Vol] 144 mmol/L Normal 136-145 [facility] Comment on above: Performed By: #### H H #### [facility] [address] [place] [address] Dr. Benito To Urea nitrogen [Mass/Vol] 39.0 mg/dL Critically high 7.0-18.0 [facility] Comment on above: Performed By: #### H H #### [facility] [address] [place] [address] Dr. Benito To Urea nitrogen/Creatinine [Mass ratio] 20.9 mg/mg Normal [facility] Comment on above: Performed By: #### H H #### [facility] [address] [place] [address] Dr. Benito To BNPon 11-13-2022 Natriuretic peptide B (Bld) [Mass/Vol] 5483.0 pg/mL Critically high <=1,800.0 [facility] Comment on above: Performed By: #### H GBHCT #### [facility] [address] [place] [address] Dr. Benito To CBC W MANUAL DIFFon 11-14-19 ANISOCYTOSIS SLIGHT Normal [facility] Comment on above: Performed By: #### T NS, PRBC #### [facility] [address] [place] [address] Dr. Benito To ATYPICAL LYMPH # Normal [facility] Comment on above: Performed By: #### T NS, PRBC #### [facility] [address] [place] [address] Dr. eBnito To ATYPICAL LYMPH % Normal [facility] Comment on above: Performed By: #### T NS, PRBC #### [facility] [address] [place] [address] Dr. Benito To BAND # 0.2 103/ul Normal 0.0-0.3 [facility] Comment on above: Performed By: #### T NS, PRBC #### [facility] [address] [place] [address] Dr. Benito To BAND % 2 % Normal 0-5 [facility] Comment on above: Performed By: #### T NS, PRBC #### [facility] [address] [place] [address] Dr. Benito To BASOM # 0.00 103/ul Normal 0.00-0.10 [facility] Comment on above: Performed By: #### T NS, PRBC #### [facility] [address] [place] [address] Dr. Benito To BASOM % 0.0 % Critically low 0.2-2.0 [facility] Comment on above: Performed By: #### T NS, PRBC #### [facility] [address] [place] [address] Dr. Benito To BLAST # Normal [facility] Comment on above: Performed By: #### T NS, PRBC #### [facility] [address] [place] [address] Dr. Benito To BLAST % Normal [facility] Comment on above: Performed By: #### T NS, PRBC #### [facility] [address] [place] [address] Dr. Benito To CORRECTED WBC Normal 4.0-11.0 [facility] Comment on above: Performed By: #### T NS, PRBC #### [facility] [address] [place] [address] Dr. Benito To EOS # 0.00 103/ul Normal 0.00-0.70 [facility] Comment on above: Performed By: #### T NS, PRBC #### [facility] [address] [place] [address] Dr. Benito To EOS% 0.0 % Critically low 0.9-7.0 [facility] Comment on above: Performed By: #### T NS, PRBC #### [facility] [address] [place] [address] Dr. Benito To HCT 23.1 % Critically low 42.0-54.0 [facility] Comment on above: Performed By: #### T NS, PRBC #### [facility] [address] [place] [address] Dr. Benito To HGB 7.2 g/dl Critically low 14.0-18.0 [facility] Comment on above: Performed By: #### T NS, PRBC #### [facility] [address] [place] [address] Dr. Benito To LYMPHM # 1.38 103/ul Normal 1.20-3.80 [facility] Comment on above: Performed By: #### T NS, PRBC #### [facility] [address] [place] [address] Dr. Benito To LYMPHM% 13.0 % Critically low 20.5-60.0 [facility] Comment on above: Performed By: #### T NS, PRBC #### [facility] [address] [place] [address] Dr. Benito To MACROCYTOSIS SLIGHT Normal [facility] Comment on above: Performed By: #### T NS, PRBC #### [facility] [address] [place] [address] Dr. Benito To MCH 32.0 pg Normal 25.9-34.0 [facility] Comment on above: Performed By: #### T NS, PRBC #### [facility] [address] [place] [address] Dr. Benito To MCHC 31.2 g/dl Normal 29.9-35.2 [facility] Comment on above: Performed By: #### T NS, PRBC #### [facility] [address] [place] [address] Dr. Benito To MCV 102.7 fL Critically high 80.0-94.0 [facility] Comment on above: Performed By: #### T NS, PRBC #### [facility] [address] [place] [address] Dr. Benito To METAMYELOCYTE # Normal [facility] Comment on above: Performed By: #### T NS, PRBC #### [facility] [address] [place] [address] Dr. Benito To METAMYELOCYTE % Normal [facility] Comment on above: Performed By: #### T NS, PRBC #### [facility] [address] [place] [address] Dr. Benito To MONOM# 0.74 103/ul Normal 0.30-0.80 [facility] Comment on above: Performed By: #### T NS, PRBC #### [facility] [address] [place] [address] Dr. Benito To MONOM% 7.0 % Normal 1.7-12.0 [facility] Comment on above: Performed By: #### T NS, PRBC #### [facility] [address] [place] [address] Dr. Benito To MPV 0.0 fL Critically low 9.5-13.5 [facility] Comment on above: Performed By: #### T NS, PRBC #### [facility] [address] [place] [address] Dr. Benito To MYELOCYTE # 0.1 103/ul Normal [facility] Comment on above: Performed By: #### T NS, PRBC #### [facility] [address] [place] [address] Dr. Benito To MYELOCYTE % 1 % Normal [facility] Comment on above: Performed By: #### T NS, PRBC #### [facility] [address] [place] [address] Dr. Bentio To NRBC Normal [facility] Comment on above: Performed By: #### T NS, PRBC #### [facility] [address] [address] [address] Benito To PLT 67 103/ul Critically low 150-450 [facility] Comment on above: Performed By: #### T NS, PRBC #### [facility] [address] [address] [address] Benito To RBC 2.25 106/ul Critically low 4.70-6.10 [facility] Comment on above: Performed By: #### T NS, PRBC #### [facility] [address] [address] [address] Benito To RDW 25.2 % Critically high 11.0-15.0 [facility] Comment on above: Performed By: #### T NS, PRBC #### [facility] [address] [address] [address] Benito To SEG # 8.16 103/ul Critically high 1.40-6.50 [facility] Comment on above: Performed By: #### T NS, PRBC #### [facility] [address] [address] [address] Benito To SEG % 77.0 % Critically high 43.0-75.0 [facility] Comment on above: Performed By: #### T NS, PRBC #### [facility] [address] [address] [address] Benito To WBC 10.6 103/ul Normal 4.0-11.0 [facility] Comment on above: Performed By: #### T NS, PRBC #### [facility] [address] [address] [address] Benito To CNPNon 11-13-2022 CNPN Normal [facility] Covid-19 PCR (CVDTBH)on 10-26 SARS-CoV-2 (COVID-19) RNA JOSSIE+probe Ql (Unsp spec) Not detected Normal NOT DETECTED [facility] Comment on above: Result Comment: When [...] for this test is supported by the Senior Manager [employer]'s declaration that [...] Performed By: #### T NS, PRBC #### [facility] [address] [place] [address] Dr. Benito To FERRITINon 11-13-2022 Ferritin [Mass/Vol] 6375.0 ng/mL Critically high 26.0-388. 0 [facility] Comment on above: Performed By: #### T NS, PRBC #### [facility] [address] [place] [address] Dr. Benito To IRON AND TIBCon 11-13-2022 Iron [Mass/Vol] 148.0 ug/dL Normal 65.0-175.0 [facility] Comment on above: Performed By: #### T NS, PRBC #### [facility] [address] [place] [address] Dr. Benito To TIBC DIRECT 145.0 ug/dL Critically low 250.0-450.0 [facility] Comment on above: Performed By: #### T NS, PRBC #### [facility] [address] [place] [address] Dr. Benito To PROF 14(COMP METB)on 023 Albumin [Mass/Vol] 2.7 g/dL Critically low 3.4-5.0 [facility] Comment on above: Performed By: #### H GBHCT #### [facility] [address] [place] [address] Dr. Benito To Albumin/Globulin [Mass ratio] 0.6 {ratio} Normal [facility] Comment on above: Performed By: #### H GBHCT #### [facility] [address] [address] [address] Benito To ALP [Catalytic activity/Vol] 140 U/L Critically high 46-116 [facility] Comment on above: Performed By: #### H GBHCT #### [facility] [address] [address] [address] Benito To ALT [Catalytic activity/Vol] 53 U/L Normal 16-63 [facility] Comment on above: Performed By: #### H GBHCT #### [facility] [address] [place] [address] Dr. Benito To Anion gap [Moles/Vol] 14.4 mmol/L Normal [facility] Comment on above: Performed By: #### H GBHCT #### [facility] [address] [address] [address] Benito To AST [Catalytic activity/Vol] 31 U/L Normal 15-37 [facility] Comment on above: Performed By: #### H GBHCT #### [facility] [address] [address] [address] Benito To Bilirubin [Mass/Vol] 1.3 mg/dL Critically high 0.2-1.0 [facility] Comment on above: Performed By: #### H GBHCT #### [facility] [address] [address] [address] Benito To Calcium [Mass/Vol] 8.8 mg/dL Normal 8.5-10.1 [facility] Comment on above: Performed By: #### H GBHCT #### [facility] [address] [place] [address] Dr. Benito To Chloride [Moles/Vol] 103 mmol/L Normal 98-107 [facility] Comment on above: Performed By: #### H GBHCT #### [facility] [address] [place] [address] Dr. Benito To CO2 [Moles/Vol] 29.7 mmol/L Normal 21.0-32.0 [facility] Comment on above: Performed By: #### H GBHCT #### [facility] [address] [address] [address] Benito To Creatinine [Mass/Vol] 1.95 mg/dL Critically high 0.70-1.30 [facility] Comment on above: Performed By: #### H GBHCT #### [facility] [address] [address] [address] Benito To EGFR-AF MICRONESIAN 40 mL/min/1.73m2 Critically low >=60 [facility] Comment on above: Performed By: #### H GBHCT #### [facility] [address] [place] [address] Dr. Benito To EGFR-NON AF MICRONESIAN 33 mL/min/1.73m2 Critically low >=60 [facility] Comment on above: Performed By: #### H GBHCT #### [facility] [address] [place] [address] Dr. Benito To Globulin (S) [Mass/Vol] 4.7 g/dL Normal [facility] Comment on above: Performed By: #### H GBHCT #### [facility] [address] [place] [address] Dr. Benito To Glucose [Mass/Vol] 198 mg/dL Critically high 74-106 [facility] Comment on above: Performed By: #### H GBHCT #### [facility] [address] [address] [address] Benito To Potassium [Moles/Vol] 4.1 mmol/L Normal 3.5-5.1 [facility] Comment on above: Performed By: #### H GBHCT #### [facility] [address] [place] [address] Dr. Benito To Protein [Mass/Vol] 7.4 g/dL Normal 6.4-8.2 [facility] Comment on above: Performed By: #### H GBHCT #### [facility] [address] [place] [address] Dr. Benito To Sodium [Moles/Vol] 143 mmol/L Normal 136-145 [facility] Comment on above: Performed By: #### H GBHCT #### [facility] [address] [address] [address] Benito To Urea nitrogen [Mass/Vol] 39.0 mg/dL Critically high 7.0-18.0 [facility] Comment on above: Performed By: #### H GBHCT #### [facility] [address] [address] [address] Benito To Urea nitrogen/Creatinine [Mass ratio] 20.0 mg/mg Normal [facility] Comment on above: Performed By: #### H GBHCT #### [facility] [address] [place] [address] Dr. Benito To TROPONIN, HIGH SENSITIVITYon 11-13-2022 HSTROP 47.8 pg/mL Normal 4.0-76.1 [facility] Comment on above: Result Comment: CUT- OFF POINTS HAVE BEEN ESTABLISHED BASED ON THE FOURTH UNIVERSAL DEFINITIONS OF MYOCARDIAL INFARCTION. THE UPPER REFERENCE LIMIT (URL) OF TROPONIN, DEFINED THE 99TH PERCENTILE OF cTnI DISTRIBUTION IN A REFERENCE POPULATION, HAS BEEN CONFIRMED THE DECISION THRESHOLD FOR IA DIAGNOSIS. Performed By: #### H GBHCT #### [facility] [address] [place] [address] Dr. Benito To TYPE AND SCREENon 11-13-2022 TYPE AND SCREEN Negative Normal [facility] Comment on above: Performed By: #### T NS, PRBC #### [facility] [address] [place] [address] Dr. Benito To XR CHEST 1 Von [...] OUMOU MONTIEL Date: 2022-11-13 13:36 Normal [facility] PRBC LEUKOREDUCEDon 11-11-19 ABO and Rh group Nom (Bld) Cross Match Result Compatible Unit Blood Type A Pos Unit Number [id number] Status Information Transfused Product ID Red Blood Cells Product Code [id number] Cross Match Result Compatible Unit Blood Type A Pos Unit Number [id number] Status Information Transfused Product ID Red Blood Cells Product Code [id number] Normal [facility] Comment on above: Performed By: #### H H #### [facility] [address] [place] [address] Dr. Benito To CBC W Auto Differential pane l (Bld)on 11-06-2022 Anisocytosis Ql (Bld) Present Normal [facility] Comment on above: Order Comment: Speci men Type: BLOOD SPECIMENOrdering Facility: [facility] Address: [address] [place] [address] Performed By: #### 5 7021-8 ####[facility] LABCLIA [id number] [address] LABCLIA [id number] [place] [id number] Basophils (Bld) [#/Vol] 0.00 10*3/uL Normal <0.11 [facility] Comment on above: Order Comment: Speci men Type: BLOOD SPECIMENOrdering Facility: [facility] Address: [address] [place] [address] Performed By: #### 5 7021-8 ####[facility] LABCLIA [id number] [address] LABCLIA [id number] [place] [address] Basophils/100 WBC (Bld) 0.0 % Normal [facility] Comment on above: Order Comment: Speci men Type: BLOOD SPECIMENOrdering Facility: [facility] Address: [address] [place] [address] Performed By: #### 5 7021-8 ####[facility] LABCLIA [id number] [address] LABCLIA [id number] [place] [address] Differential cell count method Nom (Bld) Manual Normal [facility] Comment on above: Order Comment: Speci men Type: BLOOD SPECIMENOrdering Facility: [facility] Address: [address] [place] [address] Performed By: #### 5 7021-8 ####[facility] LABCLIA [id number] [address] LABCLIA [id number] [place] [address] Eosinophils (Bld) [#/Vol] 0.03 10*3/uL Normal <0.46 [facility] Comment on above: Order Comment: Speci men Type: BLOOD SPECIMENOrdering Facility: [facility] Address: [address] [place] [address] Performed By: #### 5 7021-8 ####[facility] LABCLIA [id number] [address] LABCLIA [id number] [place] [address] Eosinophils/100 WBC (Bld) 1.0 % Normal [facility] Comment on above: Order Comment: Speci men Type: BLOOD SPECIMENOrdering Facility: [facility] Address: [address] [place] [address] Performed By: #### 5 7021-8 ####[facility] LABCLIA [id number] [address] LABCLIA [id number] [place] [address] Erythrocyte distribution width (RBC) [Ratio] 24.8 % High 11.5-15.0 [facility] Comment on above: Order Comment: Speci men Type: BLOOD SPECIMENOrdering Facility: [facility] Address: [address] [place] [address] Performed By: #### 5 7021-8 ####[facility] LABCLIA [id number] [address] LABCLIA [id number] [place] [address] Hematocrit (Bld) [Volume fraction] 21.1 % Low 39.0-51.0 [facility] Comment on above: Order Comment: Speci men Type: BLOOD SPECIMENOrdering Facility: [facility] Address: [address] [place] [address] Performed By: #### 5 7021-8 ####[facility] LABCLIA [id number] [address] LABCLIA [id number] [place] [address] Hemoglobin (Bld) [Mass/Vol] 6.5 g/dL Low 13.0-17.0 [facility] Comment on above: Order Comment: Speci men Type: BLOOD SPECIMENOrdering Facility: [facility] Address: [address] [place] [address] Performed By: #### 5 7021-8 ####[facility] LABCLIA [id number] [address] LABCLIA [id number] [place] [address] Lymphocytes (Bld) [#/Vol] 0.97 10*3/uL Low 1.00-4.00 [facility] Comment on above: Order Comment: Speci men Type: BLOOD SPECIMENOrdering Facility: [facility] Address: [address] [place] [address] Performed By: #### 5 7021-8 ####[facility] LABCLIA [id number] [address] LABCLIA [id number] [place] [address] Lymphocytes/100 WBC (Bld) 28.0 % Normal [facility] Comment on above: Order Comment: Speci men Type: BLOOD SPECIMENOrdering Facility: [facility] Address: [address] [place] [address] Performed By: #### 5 7021-8 ####[facility] LABCLIA [id number] [address] LABCLIA [id number] [place] [address] MCH (RBC) [Entitic mass] 32.0 pg Normal 26.0-34.0 [facility] Comment on above: Order Comment: Speci men Type: BLOOD SPECIMENOrdering Facility: [facility] Address: [address] [place] [address] Performed By: #### 5 7021-8 ####[facility] LABCLIA [id number] [address] LABCLIA [id number] [place] [address] MCHC (RBC) [Mass/Vol] 30.8 g/dL Normal 30.5-36.0 [facility] Comment on above: Order Comment: Speci men Type: BLOOD SPECIMENOrdering Facility: [facility] Address: [address] [place] [address] Performed By: #### 5 7021-8 ####[facility] LABCLIA [id number] [address] LABCLIA [id number] [place] [address] MCV (RBC) [Entitic vol] 103.9 fL High 80.0-100.0 [facility] Comment on above: Order Comment: Speci men Type: BLOOD SPECIMENOrdering Facility: [facility] Address: [address] [place] [address] Performed By: #### 5 7021-8 ####[facility] LABCLIA [id number] [address] LABCLIA [id number] [place] [address] Metamyelocytes/100 WBC (Bld) 5.0 % Normal [facility] Comment on above: Order Comment: Speci men Type: BLOOD SPECIMENOrdering Facility: [facility] Address: [address] [place] [address] Performed By: #### 5 7021-8 ####[facility] LABCLIA [id number] [address] LABCLIA [id number] [place] [address] Monocytes (Bld) [#/Vol] 0.48 10*3/uL Normal <0.87 [facility] Comment on above: Order Comment: Speci men Type: BLOOD SPECIMENOrdering Facility: [facility] Address: [address] [place] [address] Performed By: #### 5 7021-8 ####[facility] LABCLIA [id number] [address] LABCLIA [id number] [place] [address] Monocytes/100 WBC (Bld) 14.0 % Normal [facility] Comment on above: Order Comment: Speci men Type: BLOOD SPECIMENOrdering Facility: [facility] Address: [address] [place] [address] Performed By: #### 5 7021-8 ####[facility] LABCLIA [id number] [address] LABCLIA [id number] [place] [address] MYELO% 9.0 % Normal [facility] Comment on above: Order Comment: Speci men Type: BLOOD SPECIMENOrdering Facility: [facility] Address: [address] [place] [address] Performed By: #### 5 7021-8 ####[facility] LABCLIA [id number] [address] LABCLIA [id number] [place] [address] Neutrophils (Bld) [#/Vol] 1.48 10*3/uL Normal 1.45-7.50 [facility] Comment on above: Order Comment: Speci men Type: BLOOD SPECIMENOrdering Facility: [facility] Address: [address] [place] [address] Performed By: #### 5 7021-8 ####[facility] LABCLIA [id number] [address] LABCLIA [id number] [place] [address] Neutrophils/100 WBC (Bld) 43.0 % Normal [facility] Comment on above: Order Comment: Speci men Type: BLOOD SPECIMENOrdering Facility: [facility] Address: [address] [place] [address] Performed By: #### 5 7021-8 ####[facility] LABCLIA [id number] [address] LABCLIA [id number] [place] [address] Nucleated RBC (Bld) [#/Vol] 10*3/uL Normal <0.01 [facility] Comment on above: Order Comment: Speci men Type: BLOOD SPECIMENOrdering Facility: [facility] Address: [address] [place] [address] Performed By: #### 5 7021-8 ####[facility] LABCLIA [id number] [address] LABCLIA [id number] [place] [address] Nucleated RBC/100 WBC (Bld) [Ratio] 0.0 /100 WBC Normal [facility] Comment on above: Order Comment: Speci men Type: BLOOD SPECIMENOrdering Facility: [facility] Address: [address] [place] [address] Performed By: #### 5 7021-8 ####[facility] LABCLIA [id number] [address] LABCLIA [id number] [place] [address] Ovalocytes LM Ql (Bld) Few Normal [facility] Comment on above: Order Comment: Speci men Type: BLOOD SPECIMENOrdering Facility: [facility] Address: [address] [place], [place] [address] Performed By: #### 5 7021-8 ####[facility] LABCLIA [id number] [address] LABCLIA [id number] [place] [address] Platelet mean volume (Bld) [Entitic vol] Normal [facility] Comment on above: Order Comment: Speci men Type: BLOOD SPECIMENOrdering Facility: [facility] Address: [address] [place], [place] [address] Result Comment: Unab le to Report. Performed By: #### 5 7021-8 ####[facility] LABCLIA [id number] [address] LABCLIA [id number] [place] [address] Platelets (Bld) [#/Vol] 47 10*3/uL Low 150-400 [facility] Comment on above: Order Comment: Speci men Type: BLOOD SPECIMENOrdering Facility: [facility] Address: [address] [place] [address] Result Comment: Resu lts checked and verified.No clot detected.Platelet count confirmed by manual review of peripheral blood smear. Performed By: #### 5 7021-8 ####[facility] LABCLIA [id number] [address] LABCLIA [id number] [place] [address] Platelets Estimate (Bld) [#/Vol] Decreased Normal [facility] Comment on above: Order Comment: Speci men Type: BLOOD SPECIMENOrdering Facility: [facility] Address: [address] [place] [address] Performed By: #### 5 7021-8 ####[facility] LABCLIA [id number] [address] LABCLIA [id number] [place] [address] Polychromasia LM Ql (Bld) Slight Normal [facility] Comment on above: Order Comment: Speci men Type: BLOOD SPECIMENOrdering Facility: [facility] Address: [address] [place] [address] Performed By: #### 5 7021-8 ####[facility] LABCLIA [id number] [address] LABCLIA [id number] [place] [address] RBC (Bld) [#/Vol] 2.03 10*6/uL Low 4.20-6.00 [facility] Comment on above: Order Comment: Speci men Type: BLOOD SPECIMENOrdering Facility: [facility] Address: [address] [place] [address] Performed By: #### 5 7021-8 ####[facility] LABCLIA [id number] [address] LABCLIA [id number] [place] [address] RED CELL MORPH Reviewed: see result s of individual morphologies Normal [facility] Comment on above: Order Comment: Speci men Type: BLOOD SPECIMENOrdering Facility: [facility] Address: [address] [place] [address] Performed By: #### 5 7021-8 ####[facility] LABCLIA [id number] [address] LABCLIA [id number] [place] [address] WBC (Bld) [#/Vol] 3.45 10*3/uL Low 3.70-11.00 [facility] Comment on above: Order Comment: Speci men Type: BLOOD SPECIMENOrdering Facility: [facility] Address: [address] [place] [address] Result Comment: Resu lts checked and verified.No clot detected.Reviewed Performed By: #### 5 7021-8 ####[facility] LABCLIA [id number] [address] LABCLIA [id number] [place] [address] WBC Left Shift Ql (Bld) Present Normal [facility] Comment on above: Order Comment: Speci men Type: BLOOD SPECIMENOrdering Facility: [facility] Address: [address] [address] Performed By: #### 5 7021-8 ####[facility] LABCLIA [id number] [facility] [id number] [address] [facility] LABCLIA [id number] [place] [address] CNPNon 11-06-2022 CNPN Normal [facility] Comprehensive metabolic 2000 panelon 11-06-2022 Albumin [Mass/Vol] 3.7 g/dL Low 3.9-4.9 [facility] Comment on above: Order Comment: Speci men Type: BLOOD SPECIMENOrdering Facility: [facility] Address: [address] [place] [address] Performed By: #### 2 4323-8 ####[facility] LABCLIA [id number] [place] [address] ALP [Catalytic activity/Vol] 171 U/L High 38-113 [facility] Comment on above: Order Comment: Speci men Type: BLOOD SPECIMENOrdering Facility: [facility] Address: [address] [address] Performed By: #### 2 4323-8 ####[facility] LABCLIA [id number] [place] [address] ALT [Catalytic activity/Vol] 56 U/L High 10-54 [facility] Comment on above: Order Comment: Speci men Type: BLOOD SPECIMENOrdering Facility: [facility] Address: [address] [address] Performed By: #### 2 4323-8 ####[facility] LABCLIA [id number] [place] [address] Anion gap [Moles/Vol] 6 mmol/L Low 9-18 [facility] Comment on above: Order Comment: Speci men Type: BLOOD SPECIMENOrdering Facility: [facility] Address: [address] [place] [address] Performed By: #### 2 4323-8 ####[facility] LABCLIA [id number] [place] [address] AST [Catalytic activity/Vol] 29 U/L Normal 14-40 [facility] Comment on above: Order Comment: Speci men Type: BLOOD SPECIMENOrdering Facility: [facility] Address: [address] [place] [address] Performed By: #### 2 4323-8 ####[facility] LABCLIA [id number] [place] [address] Bilirubin [Mass/Vol] 0.8 mg/dL Normal 0.2-1.3 [facility] Comment on above: Order Comment: Speci men Type: BLOOD SPECIMENOrdering Facility: [facility] Address: [address] [place] [address] Performed By: #### 2 4323-8 ####[facility] LABCLIA [id number] [place] [address] Calcium [Mass/Vol] 9.0 mg/dL Normal 8.5-10.2 [facility] Comment on above: Order Comment: Speci men Type: BLOOD SPECIMENOrdering Facility: [facility] Address: [address] [place] [address] Performed By: #### 2 4323-8 ####[facility] LABCLIA [id number] [place] [address] Chloride [Moles/Vol] 104 mmol/L Normal 97-105 [facility] Comment on above: Order Comment: Speci men Type: BLOOD SPECIMENOrdering Facility: [facility] Address: [address] [place] [address] Performed By: #### 2 4323-8 ####[facility] LABCLIA [id number] [place] [address] CO2 [Moles/Vol] 30 mmol/L Normal 22-30 [facility] Comment on above: Order Comment: Speci men Type: BLOOD SPECIMENOrdering Facility: [facility] Address: [address] [address] Performed By: #### 2 4323-8 ####[facility] LABCLIA [id number] [place] [address] Creatinine [Mass/Vol] 1.41 mg/dL High 0.73-1.22 [facility] Comment on above: Order Comment: Speci men Type: BLOOD SPECIMENOrdering Facility: [facility] Address: [address] [address] Performed By: #### 2 4323-8 ####[facility] LABCLIA [id number] [place] [address] ESTIMATED GLOMERULAR FILTRATION RATE 49 mL/min/1.73m??? Low >=60 [facility] Comment on above: Order Comment: Speci men Type: BLOOD SPECIMENOrdering Facility: [facility] Address: [address] [place] [address] Result Comment: Faye mated Glomerular Filtration Rate [...] actual GFR. Performed By: #### 2 4323-8 ####[facility] LABCLIA [id number] [place] [address] Glucose [Mass/Vol] 183 mg/dL High 74-99 [facility] Comment on above: Order Comment: Davi avendaño Type: BLOOD SPECIMENOrdering Facility: [facility] Address: [address] [place] [address] Result Comment: The [place] [employer] (ADA) provides guidance for cutoff [...] Standards of Medical Care in Diabetes 2016, [place] [employer]. Diabetes Care. 2016.39(Suppl 1). Performed By: #### 2 4323-8 ####[facility] LABCLIA [id number] [place] [address] Potassium [Moles/Vol] 4.0 mmol/L Normal 3.7-5.1 [facility] Comment on above: Order Comment: Speci men Type: BLOOD SPECIMENOrdering Facility: [facility] Address: [address] [place] [address] Performed By: #### 2 4323-8 ####[facility] LABCLIA [id number] [place] [address] Protein [Mass/Vol] 7.0 g/dL Normal 6.3-8.0 [facility] Comment on above: Order Comment: Speci men Type: BLOOD SPECIMENOrdering Facility: [facility] Address: [address] [place] [address] Performed By: #### 2 4323-8 ####[facility] LABCLIA [id number] [place] [address] Sodium [Moles/Vol] 140 mmol/L Normal 136-144 [facility] Comment on above: Order Comment: Speci men Type: BLOOD SPECIMENOrdering Facility: [facility] Address: [address] [place] [address] Performed By: #### 2 4323-8 ####[facility] LABCLIA [id number] [place] [address] Urea nitrogen [Mass/Vol] 27 mg/dL High 9-24 [facility] Comment on above: Order Comment: Speci men Type: BLOOD SPECIMENOrdering Facility: [facility] Address: [address] [place] [address] Performed By: #### 2 4323-8 ####[facility] LABCLIA [id number] [place] [address] HEMOGLOBIN AND HEMATOCRITon 11-06-2022 Hematocrit (Bld) [Volume fraction] 20.3 % Critically low 42.0-54.0 [facility] Comment on above: Performed By: #### T NS, PRBC #### [facility] [address] [place] [address] Dr. Benito To Hemoglobin (Bld) [Mass/Vol] 6.4 g/dL Critically low 14.0-18.0 [facility] Comment on above: Performed By: #### T NS, PRBC #### [facility] [address] [place] [address] Dr. Benito To TYPE AND SCREENon 11-06-2022 TYPE AND SCREEN Negative Normal [facility] Comment on above: Performed By: #### H H #### [facility] [address] [place] [address] Dr. Benito To PRBC LEUKOREDUCEDon 11-01-19 23 ABO and Rh group Nom (Bld) Cross Match Result Compatible Unit Blood Type A Pos Unit Number [id number] Status Information Transfused Product ID Red Blood Cells Product Code [id number] Cross Match Result Compatible Unit Blood Type A Pos Unit Number [id number] Status Information Transfused Product ID Red Blood Cells Product Code [id number] [facility] Comment on above: Performed By: #### T NS, PRBC #### [facility] [address] [place] [address] Dr. Benito To ABO and Rh group Nom (Bld) Cross Match Result Compatible Unit Blood Type A Pos Unit Number [id number] Status Information Transfused Product ID Red Blood Cells Product Code [id number] Cross Match Result Compatible Unit Blood Type A Pos Unit Number [id number] Status Information Transfused Product ID Red Blood Cells Product Code [id number] Normal [facility] Comment on above: Performed By: #### T NS, PRBC #### [facility] [address] [address] [address] Beniot To CBC W Auto Differential pane l (Bld)on 10-30-2022 Anisocytosis Ql (Bld) Present Normal [facility] Comment on above: Order Comment: Speci men Type: BLOOD SPECIMENOrdering Facility: [facility] Address: [address] [place] [address] Performed By: #### 5 7021-8 ####[facility] LABCLIA [id number] [address] LABCLIA [id number] [place] [address] Basophils (Bld) [#/Vol] 0.00 10*3/uL Normal <0.11 [facility] Comment on above: Order Comment: Speci men Type: BLOOD SPECIMENOrdering Facility: [facility] Address: [address] [place] [address] Performed By: #### 5 7021-8 ####[facility] LABCLIA [id number] [address] LABCLIA [id number] [place] [address] Basophils/100 WBC (Bld) 0.0 % Normal [facility] Comment on above: Order Comment: Speci men Type: BLOOD SPECIMENOrdering Facility: [facility] Address: [address] [place] [address] Performed By: #### 5 7021-8 ####[facility] LABCLIA [id number] [address] LABCLIA [id number] [place] [address] Differential cell count method Nom (Bld) Manual Normal [facility] Comment on above: Order Comment: Speci men Type: BLOOD SPECIMENOrdering Facility: [facility] Address: [address] [place] [address] Performed By: #### 5 7021-8 ####[facility] LABCLIA [id number] [address] LABCLIA [id number] [place] [address] Eosinophils (Bld) [#/Vol] 0.00 10*3/uL Normal <0.46 [facility] Comment on above: Order Comment: Speci men Type: BLOOD SPECIMENOrdering Facility: [facility] Address: [address] [place] [address] Performed By: #### 5 7021-8 ####[facility] LABCLIA [id number] [address] LABCLIA [id number] [place] [address] Eosinophils/100 WBC (Bld) 0.0 % Normal [facility] Comment on above: Order Comment: Speci men Type: BLOOD SPECIMENOrdering Facility: [facility] Address: [address] [place] [address] Performed By: #### 5 7021-8 ####[facility] LABCLIA [id number] [address] LABCLIA [id number] [place] [address] Erythrocyte distribution width (RBC) [Ratio] 22.6 % High 11.5-15.0 [facility] Comment on above: Order Comment: Speci men Type: BLOOD SPECIMENOrdering Facility: [facility] Address: [address] [place] [address] Performed By: #### 5 7021-8 ####[facility] LABCLIA [id number] [address] LABCLIA [id number] [place] [address] Hematocrit (Bld) [Volume fraction] 26.0 % Low 39.0-51.0 [facility] Comment on above: Order Comment: Speci men Type: BLOOD SPECIMENOrdering Facility: [facility] Address: [address] [place] [address] Performed By: #### 5 7021-8 ####[facility] LABCLIA [id number] [address] LABCLIA [id number] [place] [address] Hemoglobin (Bld) [Mass/Vol] 8.1 g/dL Low 13.0-17.0 [facility] Comment on above: Order Comment: Speci men Type: BLOOD SPECIMENOrdering Facility: [facility] Address: [address] [place] [address] Performed By: #### 5 7021-8 ####[facility] LABCLIA [id number] [address] LABCLIA [id number] [place] [address] Lymphocytes (Bld) [#/Vol] 0.79 10*3/uL Low 1.00-4.00 [facility] Comment on above: Order Comment: Speci men Type: BLOOD SPECIMENOrdering Facility: [facility] Address: [address] [place] [address] Performed By: #### 5 7021-8 ####[facility] LABCLIA [id number] [address] LABCLIA [id number] [place] [address] Lymphocytes/100 WBC (Bld) 31.0 % Normal [facility] Comment on above: Order Comment: Speci men Type: BLOOD SPECIMENOrdering Facility: [facility] Address: [address] [address] Performed By: #### 5 7021-8 ####[facility] LABCLIA [id number] [address] LABCLIA [id number] [place] [address] MCH (RBC) [Entitic mass] 31.5 pg Normal 26.0-34.0 [facility] Comment on above: Order Comment: Speci men Type: BLOOD SPECIMENOrdering Facility: [facility] Address: [address] [place] [address] Performed By: #### 5 7021-8 ####[facility] LABCLIA [id number] [address] LABCLIA [id number] [place] [address] MCHC (RBC) [Mass/Vol] 31.2 g/dL Normal 30.5-36.0 [facility] Comment on above: Order Comment: Speci men Type: BLOOD SPECIMENOrdering Facility: [facility] Address: [address] [place] [address] Performed By: #### 5 7021-8 ####[facility] LABCLIA [id number] [address] LABCLIA [id number] [place] [address] MCV (RBC) [Entitic vol] 101.2 fL High 80.0-100.0 [facility] Comment on above: Order Comment: Speci men Type: BLOOD SPECIMENOrdering Facility: [facility] Address: [address] [place] [address] Performed By: #### 5 7021-8 ####[facility] LABCLIA [id number] [address] LABCL[facility] [id number] [place] [address] Metamyelocytes/100 WBC (Bld) 1.0 % Normal [facility] Comment on above: Order Comment: Speci men Type: BLOOD SPECIMENOrdering Facility: [facility] Address: [address] [place] [address] Performed By: #### 5 7021-8 ####[facility] LABCLIA [id number] [address] LABCLIA [id number] [place] [address] Monocytes (Bld) [#/Vol] 0.28 10*3/uL Normal <0.87 [facility] Comment on above: Order Comment: Speci men Type: BLOOD SPECIMENOrdering Facility: [facility] Address: [address] [place] [address] Performed By: #### 5 7021-8 ####[facility] LABCLIA [id number] [address] LABCLIA [id number] [place] [address] Monocytes/100 WBC (Bld) 11.0 % Normal [facility] Comment on above: Order Comment: Speci men Type: BLOOD SPECIMENOrdering Facility: [facility] Address: [address] [place], [place] [address] Performed By: #### 5 7021-8 ####[facility] LABCLIA [id number] [address] LABCLIA [id number] [place] [address] MYELO% 10.0 % Normal [facility] Comment on above: Order Comment: Speci men Type: BLOOD SPECIMENOrdering Facility: [facility] Address: [address] [place] [address] Performed By: #### 5 7021-8 ####[facility] LABCLIA [id number] [address] LABCLIA [id number] [place] [address] Neutrophils (Bld) [#/Vol] 1.22 10*3/uL Low 1.45-7.50 [facility] Comment on above: Order Comment: Speci men Type: BLOOD SPECIMENOrdering Facility: [facility] Address: [address] [address] Performed By: #### 5 7021-8 ####[facility] LABCLIA [id number] [address] LABCLIA [id number] [place] [address] Neutrophils/100 WBC (Bld) 48.0 % Normal [facility] Comment on above: Order Comment: Speci men Type: BLOOD SPECIMENOrdering Facility: [facility] Address: [address] [place], [place] [address] Performed By: #### 5 7021-8 ####[facility] LABCLIA [id number] [address] LABCLIA [id number] [place] [address] Nucleated RBC (Bld) [#/Vol] 0.08 10*3/uL High <0.01 [facility] Comment on above: Order Comment: Speci men Type: BLOOD SPECIMENOrdering Facility: [facility] Address: [address] [place] [address] Performed By: #### 5 7021-8 ####[facility] LABCLIA [id number] [address] LABCLIA [id number] [place] [address] Nucleated RBC/100 WBC (Bld) [Ratio] 3.0 /100 WBC Normal [facility] Comment on above: Order Comment: Speci men Type: BLOOD SPECIMENOrdering Facility: [facility] Address: [address] [place] [address] Performed By: #### 5 7021-8 ####[facility] LABCLIA [id number] [address] LABCLIA [id number] [place] [address] Ovalocytes LM Ql (Bld) Few Normal [facility] Comment on above: Order Comment: Speci men Type: BLOOD SPECIMENOrdering Facility: [facility] Address: [address] [place] [address] Performed By: #### 5 7021-8 ####[facility] LABCLIA [id number] [address] LABCLIA [id number] [place] [address] Platelet mean volume (Bld) [Entitic vol] Normal [facility] Comment on above: Order Comment: Speci men Type: BLOOD SPECIMENOrdering Facility: [facility] Address: [address] [place] [address] Result Comment: Unab le to report Performed By: #### 5 7021-8 ####[facility] LABCLIA [id number] [address] LABCLIA [id number] [place] [address] Platelets (Bld) [#/Vol] 60 10*3/uL Low 150-400 [facility] Comment on above: Order Comment: Speci men Type: BLOOD SPECIMENOrdering Facility: [facility] Address: [address] [place] [address] Result Comment: No c lot detected. Checked and Verified Performed By: #### 5 7021-8 ####[facility] LABCLIA [id number] [address] LABCLIA [id number] [place] [address] Platelets Estimate (Bld) [#/Vol] Decreased Normal [facility] Comment on above: Order Comment: Speci men Type: BLOOD SPECIMENOrdering Facility: [facility] Address: [address] [place] [address] Performed By: #### 5 7021-8 ####[facility] LABCLIA [id number] [address] LABCLIA [id number] [place] [address] RBC (Bld) [#/Vol] 2.57 10*6/uL Low 4.20-6.00 [facility] Comment on above: Order Comment: Speci men Type: BLOOD SPECIMENOrdering Facility: [facility] Address: [address] [place] [address] Performed By: #### 5 7021-8 ####[facility] LABCLIA [id number] [address] LABCLIA [id number] [place] [address] RBC FRAGMENTS Few Abnormal None Seen [facility] Comment on above: Order Comment: Speci men Type: BLOOD SPECIMENOrdering Facility: [facility] Address: [address] [place], [place] [address] Performed By: #### 5 7021-8 ####[facility] LABCLIA [id number] [address] LABCLIA [id number] [place] [address] RED CELL MORPH Reviewed: see result s of individual morphologies Normal [facility] Comment on above: Order Comment: Speci men Type: BLOOD SPECIMENOrdering Facility: [facility] Address: [address] [place] [address] Performed By: #### 5 7021-8 ####[facility] LABCLIA [id number] [address] LABCLIA [id number] [place] [address] WBC (Bld) [#/Vol] 2.55 10*3/uL Low 3.70-11.00 [facility] Comment on above: Order Comment: Speci men Type: BLOOD SPECIMENOrdering Facility: [facility] Address: [address] [place] [address] Result Comment: Resu lts checked and verified.No clot detected. Performed By: #### 5 7021-8 ####[facility] LABCLIA [id number] [address] LABCLIA [id number] [place] [address] WBC Left Shift Ql (Bld) Present Normal [facility] Comment on above: Order Comment: Speci men Type: BLOOD SPECIMENOrdering Facility: [facility] Address: [address] [place] [address] Performed By: #### 5 7021-8 ####[facility] LABCLIA [id number] [address] LABCLIA [id number] [place] [address] CNOVSPon 10-30-2022 CNOVSP Normal [facility] Comprehensive metabolic 2000 panelon 10-30-2022 Albumin [Mass/Vol] 3.6 g/dL Low 3.9-4.9 [facility] Comment on above: Order Comment: Speci men Type: BLOOD SPECIMENOrdering Facility: [facility] Address: [address] [address] Performed By: #### 2 4323-8 ####[facility] LABCLIA [id number] [place] [address] ALP [Catalytic activity/Vol] 183 U/L High 38-113 [facility] Comment on above: Order Comment: Speci men Type: BLOOD SPECIMENOrdering Facility: [facility] Address: [address] [address] Performed By: #### 2 4323-8 ####[facility] LABCLIA [id number] [place] [address] ALT [Catalytic activity/Vol] 74 U/L High 10-54 [facility] Comment on above: Order Comment: Speci men Type: BLOOD SPECIMENOrdering Facility: [facility] Address: [address] [address] Performed By: #### 2 4323-8 ####[facility] LABCLIA [id number] [place] [address] Anion gap [Moles/Vol] 11 mmol/L Normal 9-18 [facility] Comment on above: Order Comment: Speci men Type: BLOOD SPECIMENOrdering Facility: [facility] Address: [address] [address] Performed By: #### 2 4323-8 ####[facility] LABCLIA [id number] [place] [address] AST [Catalytic activity/Vol] 39 U/L Normal 14-40 [facility] Comment on above: Order Comment: Speci men Type: BLOOD SPECIMENOrdering Facility: [facility] Address: [address] [address] Performed By: #### 2 4323-8 ####[facility] LABCLIA [id number] [place] [address] Bilirubin [Mass/Vol] 1.0 mg/dL Normal 0.2-1.3 [facility] Comment on above: Order Comment: Speci men Type: BLOOD SPECIMENOrdering Facility: [facility] Address: [address] [address] Performed By: #### 2 4323-8 ####[facility] LABCLIA [id number] [place] [address] Calcium [Mass/Vol] 9.1 mg/dL Normal 8.5-10.2 [facility] Comment on above: Order Comment: Speci men Type: BLOOD SPECIMENOrdering Facility: [facility] Address: [address] [address] Performed By: #### 2 4323-8 ####[facility] LABCLIA [id number] [place] [address] Chloride [Moles/Vol] 100 mmol/L Normal 97-105 [facility] Comment on above: Order Comment: Speci men Type: BLOOD SPECIMENOrdering Facility: [facility] Address: [address] [place] [address] Performed By: #### 2 4323-8 ####[facility] LABCLIA [id number] [place] [address] CO2 [Moles/Vol] 31 mmol/L High 22-30 [facility] Comment on above: Order Comment: Speci men Type: BLOOD SPECIMENOrdering Facility: [facility] Address: [address] [address] Performed By: #### 2 4323-8 ####[facility] LABCLIA [id number] [place] [address] Creatinine [Mass/Vol] 1.34 mg/dL High 0.73-1.22 [facility] Comment on above: Order Comment: Speci men Type: BLOOD SPECIMENOrdering Facility: [facility] Address: [address] [place] [address] Performed By: #### 2 4323-8 ####[facility] LABCLIA [id number] [place] [address] ESTIMATED GLOMERULAR FILTRATION RATE 53 mL/min/1.73m??? Low >=60 [facility] Comment on above: Order Comment: Davi avendaño Type: BLOOD SPECIMENOrdering Facility: [facility] Address: [address] [place] [address] Result Comment: Faye mated Glomerular Filtration Rate [...] actual GFR. Performed By: #### 2 4323-8 ####[facility] LABCLIA [id number] [place] [address] Glucose [Mass/Vol] 229 mg/dL High 74-99 [facility] Comment on above: Order Comment: Davi avendaño Type: BLOOD SPECIMENOrdering Facility: [facility] Address: [address] [place] [address] Result Comment: The [place] [employer] (ADA) provides guidance for cutoff [...] Standards of Medical Care in Diabetes 2016, [place] [employer]. Diabetes Care. 2016.39(Suppl 1). Performed By: #### 2 4323-8 ####[facility] LABCLIA [id number] [place] [address] Potassium [Moles/Vol] 3.9 mmol/L Normal 3.7-5.1 [facility] Comment on above: Order Comment: Speci men Type: BLOOD SPECIMENOrdering Facility: [facility] Address: [address] [address] Performed By: #### 2 4323-8 ####[facility] LABCLIA [id number] [place] [address] Protein [Mass/Vol] 7.2 g/dL Normal 6.3-8.0 [facility] Comment on above: Order Comment: Speci men Type: BLOOD SPECIMENOrdering Facility: [facility] Address: [address] [address] Performed By: #### 2 4323-8 ####[facility] LABCLIA [id number] [place] [address] Sodium [Moles/Vol] 142 mmol/L Normal 136-144 [facility] Comment on above: Order Comment: Speci men Type: BLOOD SPECIMENOrdering Facility: [facility] Address: [address] [address] Performed By: #### 2 4323-8 ####[facility] LABCLIA [id number] [place] [address] Urea nitrogen [Mass/Vol] 24 mg/dL Normal 9-24 [facility] Comment on above: Order Comment: Speci men Type: BLOOD SPECIMENOrdering Facility: [facility] Address: [address] [address] Performed By: #### 2 4323-8 ####[facility] LABCLIA [id number] [place] [address] HEMOGRAM AND PLATELon 2022 Hematocrit (Bld) [Volume fraction] 21.7 % Critically low 42.0-54.0 [facility] Comment on above: Performed By: #### T NS, PRBC #### [facility] [address] [place], [place] [address] Dr. Benito To Hemoglobin (Bld) [Mass/Vol] 6.9 g/dL Critically low 14.0-18.0 [facility] Comment on above: Performed By: #### T NS, PRBC #### [facility] [address] [place] [address] Dr. Benito To MCH (RBC) [Entitic mass] 31.7 pg Normal 25.9-34.0 [facility] Comment on above: Performed By: #### T NS, PRBC #### [facility] [address] [place] [address] Dr. Benito To MCHC (RBC) [Mass/Vol] 31.8 g/dL Normal 29.9-35.2 [facility] Comment on above: Performed By: #### T NS, PRBC #### [facility] [address] [place] [address] Dr. Benito To MCV (RBC) [Entitic vol] 99.5 fL Critically high 80.0-94.0 [facility] Comment on above: Performed By: #### T NS, PRBC #### [facility] [address] [place] [address] Dr. Benito To PLT 54 103/ul Critically low 150-450 [facility] Comment on above: Performed By: #### T NS, PRBC #### [facility] [address] [place] [address] Dr. Benito To RBC 2.18 106/ul Critically low 4.70-6.10 [facility] Comment on above: Performed By: #### T NS, PRBC #### [facility] [address] [place] [address] Dr. Benito To WBC 4.3 103/ul Normal 4.0-11.0 [facility] Comment on above: Performed By: #### T NS, PRBC #### [facility] [address] [place] [address] Dr. Benito To TYPE AND SCREENon 10-25-2022 TYPE AND SCREEN Negative Normal [facility] Comment on above: Performed By: #### T NS, PRBC #### [facility] [address] [place] [address] Dr. Benito To CNPNon 10-24-2022 CNPN Normal [facility] CBC W Auto Differential pane l (Bld)on 10-23-2022 Anisocytosis Ql (Bld) Present Normal [facility] Comment on above: Order Comment: Speci men Type: BLOOD SPECIMENOrdering Facility: [facility] Address: [address] [place] [address] Performed By: #### 5 7021-8 ####[facility] LABCLIA [id number] [address] LABCLIA [id number] [place] [address] Basophils (Bld) [#/Vol] 0.03 10*3/uL Normal <0.11 [facility] Comment on above: Order Comment: Speci men Type: BLOOD SPECIMENOrdering Facility: [facility] Address: [address] [place] [address] Performed By: #### 5 7021-8 ####[facility] LABCLIA [id number] [address] LABCLIA [id number] [place] [address] Basophils/100 WBC (Bld) 1.0 % Normal [facility] Comment on above: Order Comment: Speci men Type: BLOOD SPECIMENOrdering Facility: [facility] Address: [address] [place], [place] [address] Performed By: #### 5 7021-8 ####[facility] LABCLIA [id number] [address] LABCLIA [id number] [place] [address] BLAST% 1.0 % High <=0.0 [facility] Comment on above: Order Comment: Speci men Type: BLOOD SPECIMENOrdering Facility: [facility] Address: [address] [place], [place] [address] Performed By: #### 5 7021-8 ####[facility] LABCLIA [id number] [address] LABCLIA [id number] [place] [address] Differential cell count method Nom (Bld) Manual Normal [facility] Comment on above: Order Comment: Speci men Type: BLOOD SPECIMENOrdering Facility: [facility] Address: [address] [place] [address] Performed By: #### 5 7021-8 ####[facility] LABCLIA [id number] [address] LABCLIA [id number] [place] [address] Eosinophils (Bld) [#/Vol] 0.00 10*3/uL Normal <0.46 [facility] Comment on above: Order Comment: Speci men Type: BLOOD SPECIMENOrdering Facility: [facility] Address: [address] [place] [address] Performed By: #### 5 7021-8 ####[facility] LABCLIA [id number] [address] LABCLIA [id number] [place] [address] Eosinophils/100 WBC (Bld) 0.0 % Normal [facility] Comment on above: Order Comment: Speci men Type: BLOOD SPECIMENOrdering Facility: [facility] Address: [address] [place] [address] Performed By: #### 5 7021-8 ####[facility] LABCLIA [id number] [address] LABCLIA [id number] [place] [address] Erythrocyte distribution width (RBC) [Ratio] 23.7 % High 11.5-15.0 [facility] Comment on above: Order Comment: Speci men Type: BLOOD SPECIMENOrdering Facility: [facility] Address: [address] [place] [address] Performed By: #### 5 7021-8 ####[facility] LABCLIA [id number] [address] LABCLIA [id number] [place] [address] Hematocrit (Bld) [Volume fraction] 23.4 % Low 39.0-51.0 [facility] Comment on above: Order Comment: Speci men Type: BLOOD SPECIMENOrdering Facility: [facility] Address: [address] [place] [address] Performed By: #### 5 7021-8 ####[facility] LABCLIA [id number] [address] LABCLIA [id number] [place] [address] Hemoglobin (Bld) [Mass/Vol] 7.4 g/dL Low 13.0-17.0 [facility] Comment on above: Order Comment: Speci men Type: BLOOD SPECIMENOrdering Facility: [facility] Address: [address] [place] [address] Performed By: #### 5 7021-8 ####[facility] LABCLIA [id number] [address] LABCLIA [id number] [place] [address] Lymphocytes (Bld) [#/Vol] 1.11 10*3/uL Normal 1.00-4.00 [facility] Comment on above: Order Comment: Speci men Type: BLOOD SPECIMENOrdering Facility: [facility] Address: [address] [place] [address] Performed By: #### 5 7021-8 ####[facility] LABCLIA [id number] [id number] [place] [address] LABCLIA [id number] [place] [address] Lymphocytes/100 WBC (Bld) 32.0 % Normal [facility] Comment on above: Order Comment: Speci men Type: BLOOD SPECIMENOrdering Facility: [facility] Address: [address] [place] [address] Performed By: #### 5 7021-8 ####[facility] LABCLIA [id number] [address] LABCLIA [id number] [place] [address] MCH (RBC) [Entitic mass] 31.5 pg Normal 26.0-34.0 [facility] Comment on above: Order Comment: Speci men Type: BLOOD SPECIMENOrdering Facility: [facility] Address: [address] [place] [address] Performed By: #### 5 7021-8 ####[facility] LABCLIA [id number] [address] LABCLIA [id number] [place] [address] MCHC (RBC) [Mass/Vol] 31.6 g/dL Normal 30.5-36.0 [facility] Comment on above: Order Comment: Speci men Type: BLOOD SPECIMENOrdering Facility: [facility] Address: [address] [place] [address] Performed By: #### 5 7021-8 ####[facility] LABCLIA [id number] [address] LABCLIA [id number] [place] [address] MCV (RBC) [Entitic vol] 99.6 fL Normal 80.0-100.0 [facility] Comment on above: Order Comment: Speci men Type: BLOOD SPECIMENOrdering Facility: [facility] Address: [address] [place] [address] Performed By: #### 5 7021-8 ####[facility] LABCLIA [id number] [address] LABCLIA [id number] [place] [address] Monocytes (Bld) [#/Vol] 0.59 10*3/uL Normal <0.87 [facility] Comment on above: Order Comment: Speci men Type: BLOOD SPECIMENOrdering Facility: [facility] Address: [address] [place] [address] Performed By: #### 5 7021-8 ####[facility] LABCLIA [id number] [address] LABCLIA [id number] [place] [address] Monocytes/100 WBC (Bld) 17.0 % Normal [facility] Comment on above: Order Comment: Speci men Type: BLOOD SPECIMENOrdering Facility: [facility] Address: [address] [place] [address] Performed By: #### 5 7021-8 ####[facility] LABCLIA [id number] [address] LABCLIA [id number] [place] [address] MYELO% 9.0 % Normal [facility] Comment on above: Order Comment: Speci men Type: BLOOD SPECIMENOrdering Facility: [facility] Address: [address] [place] [address] Performed By: #### 5 7021-8 ####[facility] LABCLIA [id number] [address] LABCLIA [id number] [place] [address] Neutrophils (Bld) [#/Vol] 1.39 10*3/uL Low 1.45-7.50 [facility] Comment on above: Order Comment: Speci men Type: BLOOD SPECIMENOrdering Facility: [facility] Address: [address] [place] [address] Performed By: #### 5 7021-8 ####[facility] LABCLIA [id number] [address] LABCLIA [id number] [place] [address] Neutrophils/100 WBC (Bld) 40.0 % Normal [facility] Comment on above: Order Comment: Speci men Type: BLOOD SPECIMENOrdering Facility: [facility] Address: [address] [place] [address] Performed By: #### 5 7021-8 ####[facility] LABCLIA [id number] [address] LABCLIA [id number] [place] [address] Nucleated RBC (Bld) [#/Vol] 0.07 10*3/uL High <0.01 [facility] Comment on above: Order Comment: Speci men Type: BLOOD SPECIMENOrdering Facility: [facility] Address: [address] [place], [place] [address] Performed By: #### 5 7021-8 ####[facility] LABCLIA [id number] [address] LABCLIA [id number] [place] [address] Nucleated RBC/100 WBC (Bld) [Ratio] 2.0 /100 WBC Normal [facility] Comment on above: Order Comment: Speci men Type: BLOOD SPECIMENOrdering Facility: [facility] Address: [address] [address] Performed By: #### 5 7021-8 ####[facility] LABCLIA [id number] [address] LABCLIA [id number] [place] [address] Ovalocytes LM Ql (Bld) Few Normal [facility] Comment on above: Order Comment: Speci men Type: BLOOD SPECIMENOrdering Facility: [facility] Address: [address] [place] [address] Performed By: #### 5 7021-8 ####[facility] LABCLIA [id number] [address] LABCLIA [id number] [place] [address] Platelet mean volume (Bld) [Entitic vol] Normal [facility] Comment on above: Order Comment: Speci men Type: BLOOD SPECIMENOrdering Facility: [facility] Address: [address] [place] [address] Result Comment: Guerdab le to report Performed By: #### 5 7021-8 ####[facility] LABCLIA [id number] [address] LABCLIA [id number] [place] [address] Platelets (Bld) [#/Vol] 65 10*3/uL Low 150-400 [facility] Comment on above: Order Comment: Speci men Type: BLOOD SPECIMENOrdering Facility: [facility] Address: [address] [place] [address] Performed By: #### 5 7021-8 ####[facility] LABCLIA [id number] [address] LABCLIA [id number] [place] [address] Platelets Estimate (Bld) [#/Vol] Decreased Normal [facility] Comment on above: Order Comment: Speci men Type: BLOOD SPECIMENOrdering Facility: [facility] Address: [address] [place] [address] Performed By: #### 5 7021-8 ####[facility] LABCLIA [id number] [address] LABCLIA [id number] [place] [address] Polychromasia LM Ql (Bld) Slight Normal [facility] Comment on above: Order Comment: Speci men Type: BLOOD SPECIMENOrdering Facility: [facility] Address: [address] [place] [address] Performed By: #### 5 7021-8 ####[facility] LABCLIA [id number] [address] LABCLIA [id number] [place] [address] RBC (Bld) [#/Vol] 2.35 10*6/uL Low 4.20-6.00 [facility] Comment on above: Order Comment: Speci men Type: BLOOD SPECIMENOrdering Facility: [facility] Address: [address] [place] [address] Performed By: #### 5 7021-8 ####[facility] LABCLIA [id number] [address] LABIA [id number] [place] [address] RED CELL MORPH Reviewed: see result s of individual morphologies Normal [facility] Comment on above: Order Comment: Speci men Type: BLOOD SPECIMENOrdering Facility: [facility] Address: [address] [place] [address] Performed By: #### 5 7021-8 ####[facility] LABCLIA [id number] [address] LABCLIA [id number] [place] [address] WBC (Bld) [#/Vol] 3.48 10*3/uL Low 3.70-11.00 [facility] Comment on above: Order Comment: Speci men Type: BLOOD SPECIMENOrdering Facility: [facility] Address: [address] [place] [address] Result Comment: Resu lts checked and verified.No clot detected. Performed By: #### 5 7021-8 ####[facility] LABCLIA [id number] [address] LABCLIA [id number] [place] [address] WBC Left Shift Ql (Bld) Present Normal [facility] Comment on above: Order Comment: Speci men Type: BLOOD SPECIMENOrdering Facility: [facility] Address: [address] [place] [address] Performed By: #### 5 7021-8 ####[facility] LABCLIA [id number] [address] LABCLIA [id number] [place] [address] Comprehensive metabolic 2000 panelon 10-23-2022 Albumin [Mass/Vol] 3.8 g/dL Low 3.9-4.9 [facility] Comment on above: Order Comment: Speci men Type: BLOOD SPECIMENOrdering Facility: [facility] Address: [address] [place] [address] Performed By: #### 2 4323-8 ####[facility] LABCLIA [id number] [place] [address] ALP [Catalytic activity/Vol] 166 U/L High 38-113 [facility] Comment on above: Order Comment: Speci men Type: BLOOD SPECIMENOrdering Facility: [facility] Address: [address] [address] Performed By: #### 2 4323-8 ####[facility] LABCLIA [id number] [place] [address] ALT [Catalytic activity/Vol] 63 U/L High 10-54 [facility] Comment on above: Order Comment: Speci men Type: BLOOD SPECIMENOrdering Facility: [facility] Address: [address] [place] [address] Performed By: #### 2 4323-8 ####[facility] LABCLIA [id number] [place] [address] Anion gap [Moles/Vol] 12 mmol/L Normal 9-18 [facility] Comment on above: Order Comment: Speci men Type: BLOOD SPECIMENOrdering Facility: [facility] Address: [address] [address] Performed By: #### 2 4323-8 ####[facility] LABCLIA [id number] [place] [address] AST [Catalytic activity/Vol] 36 U/L Normal 14-40 [facility] Comment on above: Order Comment: Speci men Type: BLOOD SPECIMENOrdering Facility: [facility] Address: [address] [place] [address] Performed By: #### 2 4323-8 ####[facility] LABCLIA [id number] [place] [address] Bilirubin [Mass/Vol] 0.9 mg/dL Normal 0.2-1.3 [facility] Comment on above: Order Comment: Speci men Type: BLOOD SPECIMENOrdering Facility: [facility] Address: [address] [place] [address] Performed By: #### 2 4323-8 ####[facility] LABCLIA [id number] [place] [address] Calcium [Mass/Vol] 9.2 mg/dL Normal 8.5-10.2 [facility] Comment on above: Order Comment: Speci men Type: BLOOD SPECIMENOrdering Facility: [facility] Address: [address] [place] [address] Performed By: #### 2 4323-8 ####[facility] LABCLIA [id number] [place] [address] Chloride [Moles/Vol] 101 mmol/L Normal 97-105 [facility] Comment on above: Order Comment: Speci men Type: BLOOD SPECIMENOrdering Facility: [facility] Address: [address] [place] [address] Performed By: #### 2 4323-8 ####[facility] LABCLIA [id number] [place] [address] CO2 [Moles/Vol] 29 mmol/L Normal 22-30 [facility] Comment on above: Order Comment: Speci men Type: BLOOD SPECIMENOrdering Facility: [facility] Address: [address] [place] [address] Performed By: #### 2 4323-8 ####[facility] LABCLIA [id number] [place] [address] Creatinine [Mass/Vol] 1.47 mg/dL High 0.73-1.22 [facility] Comment on above: Order Comment: Speci men Type: BLOOD SPECIMENOrdering Facility: [facility] Address: [address] [place] [address] Performed By: #### 2 4323-8 ####[facility] LABCLIA [id number] [place] [address] ESTIMATED GLOMERULAR FILTRATION RATE 47 mL/min/1.73m??? Low >=60 [facility] Comment on above: Order Comment: Speci men Type: BLOOD SPECIMENOrdering Facility: [facility] Address: [address] [id number] Result Comment: Faye mated Glomerular Filtration Rate [...] actual GFR. Performed By: #### 2 4323-8 ####[facility] LABCLIA [id number] [place] [address] Glucose [Mass/Vol] 192 mg/dL High 74-99 [facility] Comment on above: Order Comment: Davi men Type: BLOOD SPECIMENOrdering Facility: [facility] Address: [address] [place] [address] Result Comment: The [place] [employer] (ADA) provides guidance for cutoff [...] Standards of Medical Care in Diabetes 2016, [place] [employer]. Diabetes Care. 2016.39(Suppl 1). Performed By: #### 2 4323-8 ####[facility] LABCLIA [id number] [place] [address] Potassium [Moles/Vol] 4.0 mmol/L Normal 3.7-5.1 [facility] Comment on above: Order Comment: Davi avendaño Type: BLOOD SPECIMENOrdering Facility: [facility] Address: [address] [id number] Performed By: #### 2 4323-8 ####[facility] LABCLIA [id number] [place] [address] Protein [Mass/Vol] 7.1 g/dL Normal 6.3-8.0 [facility] Comment on above: Order Comment: Speci men Type: BLOOD SPECIMENOrdering Facility: [facility] Address: [address] [address] Performed By: #### 2 4323-8 ####[facility] LABCLIA [id number] [place] [address] Sodium [Moles/Vol] 142 mmol/L Normal 136-144 [facility] Comment on above: Order Comment: Speci men Type: BLOOD SPECIMENOrdering Facility: [facility] Address: [address] [address] Performed By: #### 2 4323-8 ####[facility] LABCLIA [id number] [place] [id number] Urea nitrogen [Mass/Vol] 27 mg/dL High 9-24 [facility] Comment on above: Order Comment: Speci men Type: BLOOD SPECIMENOrdering Facility: [facility] Address: [address] [address] Performed By: #### 2 4323-8 ####[facility] LABCLIA [id number] [place] [address] CNPNon 10-17-2022 CNPN Normal [facility] CBC W Auto Differential pane l (Bld)on 10-16-2022 Anisocytosis Ql (Bld) Present Normal [facility] Comment on above: Order Comment: Speci men Type: BLOOD SPECIMENOrdering Facility: [facility] Address: [address] [address] Performed By: #### 5 7021-8 ####[facility] LABCLIA [id number] [facility] [id number] LABCLIA [id number] [place] [address] Basophils (Bld) [#/Vol] 0.03 10*3/uL Normal <0.11 [facility] Comment on above: Order Comment: Speci men Type: BLOOD SPECIMENOrdering Facility: [facility] Address: [address] [place] [address] Performed By: #### 5 7021-8 ####[facility] LABCLIA [id number] [address] LABCLIA [id number] [place] [address] Basophils/100 WBC (Bld) 1.0 % Normal [facility] Comment on above: Order Comment: Speci men Type: BLOOD SPECIMENOrdering Facility: [facility] Address: [address] [place] [address] Performed By: #### 5 7021-8 ####[facility] LABCLIA [id number] [address] LABCLIA [id number] [place] [id number] Differential cell count method Nom (Bld) Manual Normal [facility] Comment on above: Order Comment: Speci men Type: BLOOD SPECIMENOrdering Facility: [facility] Address: [address] [place] [address] Performed By: #### 5 7021-8 ####[facility] LABCLIA [id number] [address] LABCLIA [id number] [place] [address] Eosinophils (Bld) [#/Vol] 0.03 10*3/uL Normal <0.46 [facility] Comment on above: Order Comment: Speci men Type: BLOOD SPECIMENOrdering Facility: [facility] Address: [address] [place] [address] Performed By: #### 5 7021-8 ####[facility] LABCLIA [id number] [address] [address] [facility] LABCLIA [id number] [place] [address] Eosinophils/100 WBC (Bld) 1.0 % Normal [facility] Comment on above: Order Comment: Speci men Type: BLOOD SPECIMENOrdering Facility: [facility] Address: [address] [place], [place] [address] Performed By: #### 5 7021-8 ####[facility] LABCLIA [id number] [address] LABCLIA [id number] [place] [address] Erythrocyte distribution width (RBC) [Ratio] 23.0 % High 11.5-15.0 [facility] Comment on above: Order Comment: Speci men Type: BLOOD SPECIMENOrdering Facility: [facility] Address: [address] [place] [address] Performed By: #### 5 7021-8 ####[facility] LABCLIA [id number] [address] LABCLIA [id number] [place] [address] Giant platelets LM Ql (Bld) Occasional Normal [facility] Comment on above: Order Comment: Speci men Type: BLOOD SPECIMENOrdering Facility: [facility] Address: [address] [place] [address] Performed By: #### 5 7021-8 ####[facility] LABCLIA [id number] [address] [id number] [facility] LABCLIA [id number] [place] [address] Hematocrit (Bld) [Volume fraction] 20.8 % Low 39.0-51.0 [facility] Comment on above: Order Comment: Speci men Type: BLOOD SPECIMENOrdering Facility: [facility] Address: [address] [place] [address] Performed By: #### 5 7021-8 ####[facility] LABCLIA [id number] [address] LABCLIA [id number] [place] [address] Hemoglobin (Bld) [Mass/Vol] 6.4 g/dL Low 13.0-17.0 [facility] Comment on above: Order Comment: Speci men Type: BLOOD SPECIMENOrdering Facility: [facility] Address: [address] [place] [address] Performed By: #### 5 7021-8 ####[facility] LABCLIA [id number] [address] LABCLIA [id number] [place] [address] Lymphocytes (Bld) [#/Vol] 1.19 10*3/uL Normal 1.00-4.00 [facility] Comment on above: Order Comment: Speci men Type: BLOOD SPECIMENOrdering Facility: [facility] Address: [address] [place] [address] Performed By: #### 5 7021-8 ####[facility] LABCLIA [id number] [address] LABCLIA [id number] [place] [address] Lymphocytes/100 WBC (Bld) 35.0 % Normal [facility] Comment on above: Order Comment: Speci men Type: BLOOD SPECIMENOrdering Facility: [facility] Address: [address] [place] [address] Performed By: #### 5 7021-8 ####[facility] LABCLIA [id number] [address] LABCLIA [id number] [place] [address] MCH (RBC) [Entitic mass] 31.7 pg Normal 26.0-34.0 [facility] Comment on above: Order Comment: Speci men Type: BLOOD SPECIMENOrdering Facility: [facility] Address: [address] [place] [address] Performed By: #### 5 7021-8 ####[facility] LABCLIA [id number] [address] LABCLIA [id number] [place] [address] MCHC (RBC) [Mass/Vol] 30.8 g/dL Normal 30.5-36.0 [facility] Comment on above: Order Comment: Speci men Type: BLOOD SPECIMENOrdering Facility: [facility] Address: [address] [place] [address] Performed By: #### 5 7021-8 ####[facility] LABCLIA [id number] [address] LABCLIA [id number] [place] [address] MCV (RBC) [Entitic vol] 103.0 fL High 80.0-100.0 [facility] Comment on above: Order Comment: Speci men Type: BLOOD SPECIMENOrdering Facility: [facility] Address: [address] [place] [address] Performed By: #### 5 7021-8 ####[facility] LABCLIA [id number] [address] LABCLIA [id number] [place] [address] Metamyelocytes/100 WBC (Bld) 2.0 % Normal [facility] Comment on above: Order Comment: Speci men Type: BLOOD SPECIMENOrdering Facility: [facility] Address: [address] [place] [address] Performed By: #### 5 7021-8 ####[facility] LABCLIA [id number] [address] LABCLIA [id number] [place] [address] Monocytes (Bld) [#/Vol] 0.54 10*3/uL Normal <0.87 [facility] Comment on above: Order Comment: Speci men Type: BLOOD SPECIMENOrdering Facility: [facility] Address: [address] [place] [address] Performed By: #### 5 7021-8 ####[facility] LABCLIA [id number] [address] LABCLIA [id number] [place] [address] Monocytes/100 WBC (Bld) 16.0 % Normal [facility] Comment on above: Order Comment: Speci men Type: BLOOD SPECIMENOrdering Facility: [facility] Address: [address] [place] [address] Performed By: #### 5 7021-8 ####[facility] LABCLIA [id number] [address] LABCLIA [id number] [place] [address] MYELO% 8.0 % Normal [facility] Comment on above: Order Comment: Speci men Type: BLOOD SPECIMENOrdering Facility: [facility] Address: [address] [place], [place] [address] Performed By: #### 5 7021-8 ####[facility] LABCLIA [id number] [address] LABCLIA [id number] [place] [address] Neutrophils (Bld) [#/Vol] 1.26 10*3/uL Low 1.45-7.50 [facility] Comment on above: Order Comment: Speci men Type: BLOOD SPECIMENOrdering Facility: [facility] Address: [address] [place] [address] Performed By: #### 5 7021-8 ####[facility] LABCLIA [id number] [address] LABCLIA [id number] [place] [address] Neutrophils/100 WBC (Bld) 37.0 % Normal [facility] Comment on above: Order Comment: Speci men Type: BLOOD SPECIMENOrdering Facility: [facility] Address: [address] [place] [address] Performed By: #### 5 7021-8 ####[facility] LABCLIA [id number] [address] LABCLIA [id number] [place] [address] Nucleated RBC (Bld) [#/Vol] 0.07 10*3/uL High <0.01 [facility] Comment on above: Order Comment: Speci men Type: BLOOD SPECIMENOrdering Facility: [facility] Address: [address] [place] [address] Performed By: #### 5 7021-8 ####[facility] LABCLIA [id number] [address] LABCLIA [id number] [place] [address] Nucleated RBC/100 WBC (Bld) [Ratio] 2.0 /100 WBC Normal [facility] Comment on above: Order Comment: Speci men Type: BLOOD SPECIMENOrdering Facility: [facility] Address: [address] [place] [address] Performed By: #### 5 7021-8 ####[facility] LABCLIA [id number] [address] LABCLIA [id number] [place] [address] Ovalocytes LM Ql (Bld) Few Normal [facility] Comment on above: Order Comment: Speci men Type: BLOOD SPECIMENOrdering Facility: [facility] Address: [address] [place] [address] Performed By: #### 5 7021-8 ####[facility] LABCLIA [id number] [address] LABCLIA [id number] [place] [address] Platelet mean volume (Bld) [Entitic vol] Normal [facility] Comment on above: Order Comment: Speci men Type: BLOOD SPECIMENOrdering Facility: [facility] Address: [address] [place] [address] Result Comment: Unab le to Report. Performed By: #### 5 7021-8 ####[facility] LABCLIA [id number] [address] LABCLIA [id number] [place] [address] Platelets (Bld) [#/Vol] 60 10*3/uL Low 150-400 [facility] Comment on above: Order Comment: Speci men Type: BLOOD SPECIMENOrdering Facility: [facility] Address: [address] [place] [address] Result Comment: Resu lts checked and verified.No clot detected. Performed By: #### 5 7021-8 ####[facility] LABCLIA [id number] [address] [facility] LABCLIA [id number] [place] [address] Platelets Estimate (Bld) [#/Vol] Decreased Normal [facility] Comment on above: Order Comment: Speci men Type: BLOOD SPECIMENOrdering Facility: [facility] Address: [address] [place] [address] Performed By: #### 5 7021-8 ####[facility] LABCLIA [id number] [address] LABCLIA [id number] [place] [address] Polychromasia LM Ql (Bld) Slight Normal [facility] Comment on above: Order Comment: Speci men Type: BLOOD SPECIMENOrdering Facility: [facility] Address: [address] [place] [address] Performed By: #### 5 7021-8 ####[facility] LABCLIA [id number] [address] LABCLIA [id number] [place] [address] RBC (Bld) [#/Vol] 2.02 10*6/uL Low 4.20-6.00 [facility] Comment on above: Order Comment: Speci men Type: BLOOD SPECIMENOrdering Facility: [facility] Address: [address] [place] [address] Performed By: #### 5 7021-8 ####[facility] LABCLIA [id number] [address] LABIA [id number] [place] [address] RED CELL MORPH Reviewed: see result s of individual morphologies Normal [facility] Comment on above: Order Comment: Speci men Type: BLOOD SPECIMENOrdering Facility: [facility] Address: [address] [place], [place] [address] Performed By: #### 5 7021-8 ####[facility] LABCLIA [id number] [address] LABCLIA [id number] [place] [address] WBC (Bld) [#/Vol] 3.40 10*3/uL Low 3.70-11.00 [facility] Comment on above: Order Comment: Speci men Type: BLOOD SPECIMENOrdering Facility: [facility] Address: [address] [place] [address] Result Comment: Resu lts checked and verified.No clot detected. Performed By: #### 5 7021-8 ####[facility] LABCLIA [id number] [address] LABCLIA [id number] [place] [address] WBC Left Shift Ql (Bld) Present Normal [facility] Comment on above: Order Comment: Speci men Type: BLOOD SPECIMENOrdering Facility: [facility] Address: [address] [place] [address] Performed By: #### 5 7021-8 ####[facility] LABCLIA [id number] [address] LABCLIA [id number] [place] [address] Comprehensive metabolic 2000 panelon 10-16-2022 Albumin [Mass/Vol] 3.7 g/dL Low 3.9-4.9 [facility] Comment on above: Order Comment: Speci men Type: BLOOD SPECIMENOrdering Facility: [facility] Address: [address] [place] [address] Performed By: #### 2 4323-8 ####[facility] LABCLIA [id number] [place] [address] ALP [Catalytic activity/Vol] 165 U/L High 38-113 [facility] Comment on above: Order Comment: Speci men Type: BLOOD SPECIMENOrdering Facility: [facility] Address: [address] [address] Performed By: #### 2 4323-8 ####[facility] LABCLIA [id number] [place] [address] ALT [Catalytic activity/Vol] 67 U/L High 10-54 [facility] Comment on above: Order Comment: Speci men Type: BLOOD SPECIMENOrdering Facility: [facility] Address: [address] [address] Performed By: #### 2 4323-8 ####[facility] LABCLIA [id number] [place] [address] Anion gap [Moles/Vol] 12 mmol/L Normal 9-18 [facility] Comment on above: Order Comment: Speci men Type: BLOOD SPECIMENOrdering Facility: [facility] Address: [address] [address] Performed By: #### 2 4323-8 ####[facility] LABCLIA [id number] [place] [address] AST [Catalytic activity/Vol] 36 U/L Normal 14-40 [facility] Comment on above: Order Comment: Speci men Type: BLOOD SPECIMENOrdering Facility: [facility] Address: [address] [address] Performed By: #### 2 4323-8 ####[facility] LABCLIA [id number] [place] [address] Bilirubin [Mass/Vol] 0.8 mg/dL Normal 0.2-1.3 [facility] Comment on above: Order Comment: Speci men Type: BLOOD SPECIMENOrdering Facility: [facility] Address: [address] [address] Performed By: #### 2 4323-8 ####[facility] LABCLIA [id number] [place] [address] Calcium [Mass/Vol] 9.2 mg/dL Normal 8.5-10.2 [facility] Comment on above: Order Comment: Speci men Type: BLOOD SPECIMENOrdering Facility: [facility] Address: [address] [place] [address] Performed By: #### 2 4323-8 ####[facility] LABCLIA [id number] [place] [address] Chloride [Moles/Vol] 100 mmol/L Normal 97-105 [facility] Comment on above: Order Comment: Speci men Type: BLOOD SPECIMENOrdering Facility: [facility] Address: [address] [place] [address] Performed By: #### 2 4323-8 ####[facility] LABCLIA [id number] [place] [address] CO2 [Moles/Vol] 30 mmol/L Normal 22-30 [facility] Comment on above: Order Comment: Speci men Type: BLOOD SPECIMENOrdering Facility: [facility] Address: [address] [place] [address] Performed By: #### 2 4323-8 ####[facility] LABCLIA [id number] [place] [address] Creatinine [Mass/Vol] 1.54 mg/dL High 0.73-1.22 [facility] Comment on above: Order Comment: Speci men Type: BLOOD SPECIMENOrdering Facility: [facility] Address: [address] [place] [address] Performed By: #### 2 4323-8 ####[facility] LABCLIA [id number] [place] [address] ESTIMATED GLOMERULAR FILTRATION RATE 44 mL/min/1.73m??? Low >=60 [facility] Comment on above: Order Comment: Speci men Type: BLOOD SPECIMENOrdering Facility: [facility] Address: [facility] [place] [id number] Result Comment: Faye mated Glomerular Filtration Rate [...] actual GFR. Performed By: #### 2 4323-8 ####[facility] LABCLIA [id number] [place] [address] Glucose [Mass/Vol] 145 mg/dL High 74-99 [facility] Comment on above: Order Comment: Speci men Type: BLOOD SPECIMENOrdering Facility: [facility] Address: [address] [place] [address] Result Comment: The [place] [employer] (ADA) provides guidance for cutoff [...] Standards of Medical Care in Diabetes 2016, [place] [employer]. Diabetes Care. 2016.39(Suppl 1). Performed By: #### 2 4323-8 ####[facility] LABCLIA [id number] [place] [address] Potassium [Moles/Vol] 4.0 mmol/L Normal 3.7-5.1 [facility] Comment on above: Order Comment: Cristinai men Type: BLOOD SPECIMENOrdering Facility: [facility] Address: [address] [id number] Performed By: #### 2 4323-8 ####[facility] LABCLIA [id number] [place] [address] Protein [Mass/Vol] 6.9 g/dL Normal 6.3-8.0 [facility] Comment on above: Order Comment: Speci men Type: BLOOD SPECIMENOrdering Facility: [facility] Address: [address] [place] [address] Performed By: #### 2 4323-8 ####[facility] LABCLIA [id number] [place] [address] Sodium [Moles/Vol] 142 mmol/L Normal 136-144 [facility] Comment on above: Order Comment: Speci men Type: BLOOD SPECIMENOrdering Facility: [facility] Address: [address] [place] [address] Performed By: #### 2 4323-8 ####[facility] LABCLIA [id number] [place] [id number] Urea nitrogen [Mass/Vol] 26 mg/dL High 9-24 [facility] Comment on above: Order Comment: Speci men Type: BLOOD SPECIMENOrdering Facility: [facility] Address: [address] [place] [address] Performed By: #### 2 4323-8 ####[facility] LABCLIA [id number] [place] [address] HEMOGRAM AND PLATELon 2022 Hematocrit (Bld) [Volume fraction] 19.3 % Critically low 42.0-54.0 [facility] Comment on above: Performed By: #### T NS, PRBC #### [facility] [address] [address] [address] Benito To Hemoglobin (Bld) [Mass/Vol] 6.3 g/dL Critically low 14.0-18.0 [facility] Comment on above: Performed By: #### T NS, PRBC #### [facility] [address] [address] [address] Benito To MCH (RBC) [Entitic mass] 32.6 pg Normal 25.9-34.0 [facility] Comment on above: Performed By: #### T NS, PRBC #### [facility] [address] [place] [address] Dr. Bentio To MCHC (RBC) [Mass/Vol] 32.6 g/dL Normal 29.9-35.2 [facility] Comment on above: Performed By: #### T NS, PRBC #### [facility] [address] [place] [address] Dr. Benito To MCV (RBC) [Entitic vol] 100.0 fL Critically high 80.0-94.0 [facility] Comment on above: Performed By: #### T NS, PRBC #### [facility] [address] [place] [address] Dr. Benito To PLT 53 103/ul Critically low 150-450 [facility] Comment on above: Performed By: #### T NS, PRBC #### [facility] [address] [place] [address] Dr. Benito To RBC 1.93 106/ul Critically low 4.70-6.10 [facility] Comment on above: Performed By: #### T NS, PRBC #### [facility] [address] [place] [address] Dr. Benito To WBC 2.8 103/ul Critically low 4.0-11.0 [facility] Comment on above: Performed By: #### T NS, PRBC #### [facility] [address] [place] [address] Dr. Benito To PRBC LEUKOREDUCEDon 10-17-19 PRBC LEUKOREDUCED Cross Match Result Compatible Unit Blood Type A Pos Unit Number [id number] Status Information Transfused Product ID Red Blood Cells Product Code [id number] Normal [facility] Comment on above: Performed By: #### T NS, PRBC #### [facility] [address] [place] [address] Dr. Benito To TYPE AND SCREENon 10-16-2022 TYPE AND SCREEN Negative Normal [facility] Comment on above: Performed By: #### T NS, PRBC #### [facility] [address] [address] [address] Benito To CNOVSPon 10-15-2022 CNOVSP Normal [facility] CBC W Auto Differential pane l (Bld)on 10-09-2022 Anisocytosis Ql (Bld) Present Normal [facility] Comment on above: Order Comment: Speci men Type: BLOOD SPECIMENOrdering Facility: [facility] Address: [address] [place] [address] Performed By: #### 5 7021-8 ####[facility] LABCLIA [id number] [address] LABCLIA [id number] [place] [address] Basophils (Bld) [#/Vol] 0.03 10*3/uL Normal <0.11 [facility] Comment on above: Order Comment: Speci men Type: BLOOD SPECIMENOrdering Facility: [facility] Address: [address] [place] [address] Performed By: #### 5 7021-8 ####[facility] LABCLIA [id number] [address] LABCLIA [id number] [place] [address] Basophils/100 WBC (Bld) 1.0 % Normal [facility] Comment on above: Order Comment: Speci men Type: BLOOD SPECIMENOrdering Facility: [facility] Address: [address] [place] [address] Performed By: #### 5 7021-8 ####[facility] LABCLIA [id number] [address] LABCLIA [id number] [place] [address] Differential cell count method Nom (Bld) Manual Normal [facility] Comment on above: Order Comment: Speci men Type: BLOOD SPECIMENOrdering Facility: [facility] Address: [address] [place] [address] Performed By: #### 5 7021-8 ####[facility] LABCLIA [id number] [address] LABCLIA [id number] [place] [address] Eosinophils (Bld) [#/Vol] 0.09 10*3/uL Normal <0.46 [facility] Comment on above: Order Comment: Speci men Type: BLOOD SPECIMENOrdering Facility: [facility] Address: [address] [place] [address] Performed By: #### 5 7021-8 ####[facility] LABCLIA [id number] [address] LABCLIA [id number] [place] [address] Eosinophils/100 WBC (Bld) 3.0 % Normal [facility] Comment on above: Order Comment: Speci men Type: BLOOD SPECIMENOrdering Facility: [facility] Address: [address] [place] [address] Performed By: #### 5 7021-8 ####[facility] LABCLIA [id number] [address] LABCLIA [id number] [place] [address] Erythrocyte distribution width (RBC) [Ratio] 21.2 % High 11.5-15.0 [facility] Comment on above: Order Comment: Speci men Type: BLOOD SPECIMENOrdering Facility: [facility] Address: [address] [place] [address] Performed By: #### 5 7021-8 ####[facility] LABCLIA [id number] [place] [id number] LABCLIA [id number] [place] [address] Hematocrit (Bld) [Volume fraction] 24.0 % Low 39.0-51.0 [facility] Comment on above: Order Comment: Speci men Type: BLOOD SPECIMENOrdering Facility: [facility] Address: [address] [place] [address] Performed By: #### 5 7021-8 ####[facility] LABCLIA [id number] [address] LABCLIA [id number] [place] [address] Hemoglobin (Bld) [Mass/Vol] 7.6 g/dL Low 13.0-17.0 [facility] Comment on above: Order Comment: Speci men Type: BLOOD SPECIMENOrdering Facility: [facility] Address: [address] [place] [address] Performed By: #### 5 7021-8 ####[facility] LABCLIA [id number] [address] LABCLIA [id number] [place] [address] Lymphocytes (Bld) [#/Vol] 1.31 10*3/uL Normal 1.00-4.00 [facility] Comment on above: Order Comment: Speci men Type: BLOOD SPECIMENOrdering Facility: [facility] Address: [address] [place] [address] Performed By: #### 5 7021-8 ####[facility] LABCLIA [id number] [address] LABCLIA [id number] [place] [address] Lymphocytes/100 WBC (Bld) 45.0 % Normal [facility] Comment on above: Order Comment: Speci men Type: BLOOD SPECIMENOrdering Facility: [facility] Address: [address] [address] Performed By: #### 5 7021-8 ####[facility] LABCLIA [id number] [address] LABCLIA [id number] [place] [address] MCH (RBC) [Entitic mass] 31.7 pg Normal 26.0-34.0 [facility] Comment on above: Order Comment: Speci men Type: BLOOD SPECIMENOrdering Facility: [facility] Address: [address] [place] [address] Performed By: #### 5 7021-8 ####[facility] LABCLIA [id number] [address] LABCLIA [id number] [place] [address] MCHC (RBC) [Mass/Vol] 31.7 g/dL Normal 30.5-36.0 [facility] Comment on above: Order Comment: Speci men Type: BLOOD SPECIMENOrdering Facility: [facility] Address: [address] [place], [place] [address] Performed By: #### 5 7021-8 ####[facility] LABCLIA [id number] [address] LABCLIA [id number] [place] [address] MCV (RBC) [Entitic vol] 100.0 fL Normal 80.0-100.0 [facility] Comment on above: Order Comment: Speci men Type: BLOOD SPECIMENOrdering Facility: [facility] Address: [address] [place] [address] Performed By: #### 5 7021-8 ####[facility] LABCLIA [id number] [place] [address] LABCLIA [id number] [place] [address] Monocytes (Bld) [#/Vol] 0.41 10*3/uL Normal <0.87 [facility] Comment on above: Order Comment: Speci men Type: BLOOD SPECIMENOrdering Facility: [facility] Address: [address] [place] [address] Performed By: #### 5 7021-8 ####[facility] LABCLIA [id number] [address] LABCLIA [id number] [place] [address] Monocytes/100 WBC (Bld) 14.0 % Normal [facility] Comment on above: Order Comment: Speci men Type: BLOOD SPECIMENOrdering Facility: [facility] Address: [address] [place] [address] Performed By: #### 5 7021-8 ####[facility] LABCLIA [id number] [address] LABCLIA [id number] [place] [address] MYELO% 9.0 % Normal [facility] Comment on above: Order Comment: Speci men Type: BLOOD SPECIMENOrdering Facility: [facility] Address: [address] [place], [place] [address] Performed By: #### 5 7021-8 ####[facility] LABCLIA [id number] [address] LABCLIA [id number] [place] [address] Neutrophils (Bld) [#/Vol] 0.84 10*3/uL Low 1.45-7.50 [facility] Comment on above: Order Comment: Speci men Type: BLOOD SPECIMENOrdering Facility: [facility] Address: [address] [place] [address] Performed By: #### 5 7021-8 ####[facility] LABCLIA [id number] [address] LABCLIA [id number] [place] [address] Neutrophils/100 WBC (Bld) 29.0 % Normal [facility] Comment on above: Order Comment: Speci men Type: BLOOD SPECIMENOrdering Facility: [facility] Address: [address] Performed By: #### 5 7021-8 ####[facility] LABCLIA [id number] [address] LABCLIA [id number] [place] [address] Nucleated RBC (Bld) [#/Vol] 10*3/uL Normal <0.01 [facility] Comment on above: Order Comment: Speci men Type: BLOOD SPECIMENOrdering Facility: [facility] Address: [address] [place], [place] [address] Performed By: #### 5 7021-8 ####[facility] LABCLIA [id number] [address] LABCLIA [id number] [place] [address] Nucleated RBC/100 WBC (Bld) [Ratio] 0.0 /100 WBC Normal [facility] Comment on above: Order Comment: Speci men Type: BLOOD SPECIMENOrdering Facility: [facility] Address: [address] [place] [address] Performed By: #### 5 7021-8 ####[facility] LABCLIA [id number] [address] LABCLIA [id number] [place] [address] Ovalocytes LM Ql (Bld) Few Normal [facility] Comment on above: Order Comment: Speci men Type: BLOOD SPECIMENOrdering Facility: [facility] Address: [address] [place] [address] Performed By: #### 5 7021-8 ####[facility] LABCLIA [id number] [address] LABCLIA [id number] [place] [address] Platelet mean volume (Bld) [Entitic vol] Normal [facility] Comment on above: Order Comment: Speci men Type: BLOOD SPECIMENOrdering Facility: [facility] Address: [address] [place] [address] Result Comment: Unab le to Report. Performed By: #### 5 7021-8 ####[facility] LABCLIA [id number] [address] LABCLIA [id number] [place] [address] Platelets (Bld) [#/Vol] 67 10*3/uL Low 150-400 [facility] Comment on above: Order Comment: Speci men Type: BLOOD SPECIMENOrdering Facility: [facility] Address: [address] [place] [address] Result Comment: Resu lts checked and verified.No clot detected. Performed By: #### 5 7021-8 ####[facility] LABCLIA [id number] [address] LABCLIA [id number] [place] [address] Platelets Estimate (Bld) [#/Vol] Decreased Normal [facility] Comment on above: Order Comment: Speci men Type: BLOOD SPECIMENOrdering Facility: [facility] Address: [address] [place], [place] [address] Performed By: #### 5 7021-8 ####[facility] LABCLIA [id number] [address] LABCLIA [id number] [place] [address] Polychromasia LM Ql (Bld) Slight Normal [facility] Comment on above: Order Comment: Speci men Type: BLOOD SPECIMENOrdering Facility: [facility] Address: [address] Performed By: #### 5 7021-8 ####[facility] LABCLIA [id number] [address] LABCLIA [id number] [place] [address] RBC (Bld) [#/Vol] 2.40 10*6/uL Low 4.20-6.00 [facility] Comment on above: Order Comment: Speci men Type: BLOOD SPECIMENOrdering Facility: [facility] Address: [address] Performed By: #### 5 7021-8 ####[facility] LABCLIA [id number] [address] LABCLIA [id number] [place] [address] RED CELL MORPH Reviewed: see result s of individual morphologies Normal [facility] Comment on above: Order Comment: Speci men Type: BLOOD SPECIMENOrdering Facility: [facility] Address: [address] [place] [address] Performed By: #### 5 7021-8 ####[facility] LABCLIA [id number] [address] LABCLIA [id number] [place] [address] WBC (Bld) [#/Vol] 2.90 10*3/uL Low 3.70-11.00 [facility] Comment on above: Order Comment: Speci men Type: BLOOD SPECIMENOrdering Facility: [facility] Address: [address] [place] [address] Result Comment: Resu lts checked and verified.No clot detected. Performed By: #### 5 7021-8 ####[facility] LABCLIA [id number] [address] LABCLIA [id number] [place] [address] WBC Left Shift Ql (Bld) Present Normal [facility] Comment on above: Order Comment: Speci men Type: BLOOD SPECIMENOrdering Facility: [facility] Address: [address] [place] [address] Performed By: #### 5 7021-8 ####[facility] LABCLIA [id number] [address] LABCLIA [id number] [place] [address] CNOVSPon 10-09-2022 CNOVSP Normal [facility] Comprehensive metabolic 2000 panelon 10-09-2022 Albumin [Mass/Vol] 3.7 g/dL Low 3.9-4.9 [facility] Comment on above: Order Comment: Speci men Type: BLOOD SPECIMENOrdering Facility: [facility] Address: [address] [place], [place] [address] Performed By: #### 2 4323-8 ####[facility] LABIA [id number] [place] [address] [place] ALP [Catalytic activity/Vol] 154 U/L High 38-113 [facility] Comment on above: Order Comment: Speci men Type: BLOOD SPECIMENOrdering Facility: [facility] Address: [address] [place] [address] Performed By: #### 2 4323-8 ####[facility] LABCLIA [id number] [place] [address] [place] ALT [Catalytic activity/Vol] 78 U/L High 10-54 [facility] Comment on above: Order Comment: Speci men Type: BLOOD SPECIMENOrdering Facility: [facility] Address: [address] [place], [place] [address] Performed By: #### 2 4323-8 ####[facility] LABCLIA [id number] [place] [address] [place] Anion gap [Moles/Vol] 11 mmol/L Normal 9-18 [facility] Comment on above: Order Comment: Speci men Type: BLOOD SPECIMENOrdering Facility: [facility] Address: [address] [place] [address] Performed By: #### 2 4323-8 ####[facility] LABCLIA [id number] [address] [place] AST [Catalytic activity/Vol] 45 U/L High 14-40 [facility] Comment on above: Order Comment: Speci men Type: BLOOD SPECIMENOrdering Facility: [facility] Address: [address] [place], [place] [address] Performed By: #### 2 4323-8 ####[facility] LABCLIA [id number] [place] [address] [place] Bilirubin [Mass/Vol] 0.7 mg/dL Normal 0.2-1.3 [facility] Comment on above: Order Comment: Speci men Type: BLOOD SPECIMENOrdering Facility: [facility] Address: [address] [place], [place] [address] Performed By: #### 2 4323-8 ####[facility] LABCLIA [id number] [place] [address] [place] Calcium [Mass/Vol] 9.4 mg/dL Normal 8.5-10.2 [facility] Comment on above: Order Comment: Speci men Type: BLOOD SPECIMENOrdering Facility: [facility] Address: [address] [place] [address] Performed By: #### 2 4323-8 ####[facility] LABCLIA [id number] [place] [address] [place] Chloride [Moles/Vol] 102 mmol/L Normal 97-105 [facility] Comment on above: Order Comment: Speci men Type: BLOOD SPECIMENOrdering Facility: [facility] Address: [address] [place] [place] [address] Performed By: #### 2 4323-8 ####[facility] LABCLIA [id number] [place] [address] [place] CO2 [Moles/Vol] 30 mmol/L Normal 22-30 [facility] Comment on above: Order Comment: Speci men Type: BLOOD SPECIMENOrdering Facility: [facility] Address: [address] [place] [address] Performed By: #### 2 4323-8 ####[facility] LABCLIA [id number] [place] [address] [place] Creatinine [Mass/Vol] 1.38 mg/dL High 0.73-1.22 [facility] Comment on above: Order Comment: Speci men Type: BLOOD SPECIMENOrdering Facility: [facility] Address: [address] Performed By: #### 2 4323-8 ####[facility] LABCLIA [id number] [place] [address] [place] ESTIMATED GLOMERULAR FILTRATION RATE 51 mL/min/1.73m??? Low >=60 [facility] Comment on above: Order Comment: Speci men Type: BLOOD SPECIMENOrdering Facility: [facility] Address: [address] [place], [place] [address] Result Comment: Faye mated Glomerular Filtration Rate [...] actual GFR. Performed By: #### 2 4323-8 ####[facility] LABIA [id number] [place] [address] [place] Glucose [Mass/Vol] 163 mg/dL High 74-99 [facility] Comment on above: Order Comment: Speciman avendaño Type: BLOOD SPECIMENOrdering Facility: [facility] Address: [address] [address] Result Comment: The [place] [employer] (ADA) provides guidance for cutoff [...] Standards of Medical Care in Diabetes 2016, [place] [employer]. Diabetes Care. 2016.39(Suppl 1). Performed By: #### 2 4323-8 ####[facility] LABIA [id number] [place] [address] [place] Potassium [Moles/Vol] 4.7 mmol/L Normal 3.7-5.1 [facility] Comment on above: Order Comment: Davi avendaño Type: BLOOD SPECIMENOrdering Facility: [facility] Address: [address] [address] Performed By: #### 2 4323-8 ####[facility] LABIA [id number] [place] [address] [place] Protein [Mass/Vol] 7.0 g/dL Normal 6.3-8.0 [facility] Comment on above: Order Comment: Speci men Type: BLOOD SPECIMENOrdering Facility: [facility] Address: [address] [place] [address] Performed By: #### 2 4323-8 ####[facility] LABCLIA [id number] [place] [address] [place] Sodium [Moles/Vol] 143 mmol/L Normal 136-144 [facility] Comment on above: Order Comment: Speci men Type: BLOOD SPECIMENOrdering Facility: [facility] Address: [address] [place] [address] Performed By: #### 2 4323-8 ####[facility] LABCLIA [id number] [address] [place] Urea nitrogen [Mass/Vol] 24 mg/dL Normal 9-24 [facility] Comment on above: Order Comment: Speci men Type: BLOOD SPECIMENOrdering Facility: [facility] Address: [address] [place], [place] [address] Performed By: #### 2 4323-8 ####[facility] LABCLIA [id number] [place] [address] [place] CBC W Auto Differential pane l (Bld)on 10-02-2022 Anisocytosis Ql (Bld) Present Normal [facility] Comment on above: Order Comment: Speci men Type: BLOOD SPECIMENOrdering Facility: [facility] Address: [address] [place], [place] [address] Performed By: #### 5 7021-8 ####[facility] LABCLIA [id number] [address] LABCLIA [id number] [place] [address] Basophils (Bld) [#/Vol] 0.05 10*3/uL Normal <0.11 [facility] Comment on above: Order Comment: Speci men Type: BLOOD SPECIMENOrdering Facility: [facility] Address: [address] [place] [address] Performed By: #### 5 7021-8 ####[facility] LABCLIA [id number] [address] LABCLIA [id number] [place] [address] Basophils/100 WBC (Bld) 2.0 % Normal [facility] Comment on above: Order Comment: Speci men Type: BLOOD SPECIMENOrdering Facility: [facility] Address: [address] [place] [address] Performed By: #### 5 7021-8 ####[facility] LABCLIA [id number] [address] LABCLIA [id number] [place] [address] Differential cell count method Nom (Bld) Manual Normal [facility] Comment on above: Order Comment: Speci men Type: BLOOD SPECIMENOrdering Facility: [facility] Address: [address] [place] [address] Performed By: #### 5 7021-8 ####[facility] LABCLIA [id number] [address] LABCLIA [id number] [place] [address] Eosinophils (Bld) [#/Vol] 0.00 10*3/uL Normal <0.46 [facility] Comment on above: Order Comment: Speci men Type: BLOOD SPECIMENOrdering Facility: [facility] Address: [address] [place] [address] Performed By: #### 5 7021-8 ####[facility] LABCLIA [id number] [place] [id number] [facility] LABCLIA [id number] [place] [address] Eosinophils/100 WBC (Bld) 0.0 % Normal [facility] Comment on above: Order Comment: Speci men Type: BLOOD SPECIMENOrdering Facility: [facility] Address: [address] [place] [address] Performed By: #### 5 7021-8 ####[facility] LABCLIA [id number] [place] [id number] [facility] LABCLIA [id number] [place] [address] Erythrocyte distribution width (RBC) [Ratio] 18.1 % High 11.5-15.0 [facility] Comment on above: Order Comment: Speci men Type: BLOOD SPECIMENOrdering Facility: [facility] Address: [address] [place] [address] Performed By: #### 5 7021-8 ####[facility] LABCLIA [id number] [address] LABCLIA [id number] [place] [address] Giant platelets LM Ql (Bld) Occasional Normal [facility] Comment on above: Order Comment: Speci men Type: BLOOD SPECIMENOrdering Facility: [facility] Address: [address] [place], [place] [address] Performed By: #### 5 7021-8 ####[facility] LABCLIA [id number] [address] LABCLIA [id number] [place] [address] Hematocrit (Bld) [Volume fraction] 24.4 % Low 39.0-51.0 [facility] Comment on above: Order Comment: Speci men Type: BLOOD SPECIMENOrdering Facility: [facility] Address: [address] [place], [place] [address] Performed By: #### 5 7021-8 ####[facility] LABCLIA [id number] [address] LABCLIA [id number] [place] [address] Hemoglobin (Bld) [Mass/Vol] 7.8 g/dL Low 13.0-17.0 [facility] Comment on above: Order Comment: Speci men Type: BLOOD SPECIMENOrdering Facility: [facility] Address: [address] [place] [address] Performed By: #### 5 7021-8 ####[facility] LABCLIA [id number] [address] LABCLIA [id number] [place] [address] Lymphocytes (Bld) [#/Vol] 1.15 10*3/uL Normal 1.00-4.00 [facility] Comment on above: Order Comment: Speci men Type: BLOOD SPECIMENOrdering Facility: [facility] Address: [address] [place] [address] Performed By: #### 5 7021-8 ####[facility] LABCLIA [id number] [address] LABCLIA [id number] [place] [address] Lymphocytes/100 WBC (Bld) 42.0 % Normal [facility] Comment on above: Order Comment: Speci men Type: BLOOD SPECIMENOrdering Facility: [facility] Address: [address] [place], [place] [address] Performed By: #### 5 7021-8 ####[facility] LABCLIA [id number] [address] LABCLIA [id number] [place] [address] MCH (RBC) [Entitic mass] 32.8 pg Normal 26.0-34.0 [facility] Comment on above: Order Comment: Speci men Type: BLOOD SPECIMENOrdering Facility: [facility] Address: [address] [place] [address] Performed By: #### 5 7021-8 ####[facility] LABCLIA [id number] [address] LABCLIA [id number] [place] [address] MCHC (RBC) [Mass/Vol] 32.0 g/dL Normal 30.5-36.0 [facility] Comment on above: Order Comment: Speci men Type: BLOOD SPECIMENOrdering Facility: [facility] Address: [address] [place] [address] Performed By: #### 5 7021-8 ####[facility] LABCLIA [id number] [address] LABCLIA [id number] [place] [address] MCV (RBC) [Entitic vol] 102.5 fL High 80.0-100.0 [facility] Comment on above: Order Comment: Speci men Type: BLOOD SPECIMENOrdering Facility: [facility] Address: [address] [place], [place] [address] Performed By: #### 5 7021-8 ####[facility] LABIA [id number] [address] LABCLIA [id number] [place] [address] Metamyelocytes/100 WBC (Bld) 4.0 % Normal [facility] Comment on above: Order Comment: Speci men Type: BLOOD SPECIMENOrdering Facility: [facility] Address: [address] [place] [address] Performed By: #### 5 7021-8 ####[facility] LABCLIA [id number] [address] LABCLIA [id number] [place] [address] Monocytes (Bld) [#/Vol] 0.41 10*3/uL Normal <0.87 [facility] Comment on above: Order Comment: Speci men Type: BLOOD SPECIMENOrdering Facility: [facility] Address: [address] [place] [address] Performed By: #### 5 7021-8 ####[facility] LABCLIA [id number] [address] LABCLIA [id number] [place] [address] Monocytes/100 WBC (Bld) 15.0 % Normal [facility] Comment on above: Order Comment: Speci men Type: BLOOD SPECIMENOrdering Facility: [facility] Address: [address] [place] [address] Performed By: #### 5 7021-8 ####[facility] LABCLIA [id number] [address] LABCLIA [id number] [place] [address] MYELO% 6.0 % Normal [facility] Comment on above: Order Comment: Speci men Type: BLOOD SPECIMENOrdering Facility: [facility] Address: [address] [place] [address] Performed By: #### 5 7021-8 ####[facility] LABCLIA [id number] [place] [id number] [facility] LABCLIA [id number] [place] [address] Neutrophils (Bld) [#/Vol] 0.85 10*3/uL Low 1.45-7.50 [facility] Comment on above: Order Comment: Speci men Type: BLOOD SPECIMENOrdering Facility: [facility] Address: [address] [place] [address] Performed By: #### 5 7021-8 ####[facility] LABCLIA [id number] [address] LABCLIA [id number] [place] [address] Neutrophils/100 WBC (Bld) 31.0 % Normal [facility] Comment on above: Order Comment: Speci men Type: BLOOD SPECIMENOrdering Facility: [facility] Address: [address] [place] [address] Performed By: #### 5 7021-8 ####[facility] LABCLIA [id number] [address] LABCLIA [id number] [place] [address] Nucleated RBC (Bld) [#/Vol] 10*3/uL Normal <0.01 [facility] Comment on above: Order Comment: Speci men Type: BLOOD SPECIMENOrdering Facility: [facility] Address: [address] [place], [place] [address] Performed By: #### 5 7021-8 ####[facility] LABCLIA [id number] [address] LABCLIA [id number] [place] [address] Nucleated RBC/100 WBC (Bld) [Ratio] 0.0 /100 WBC Normal [facility] Comment on above: Order Comment: Speci men Type: BLOOD SPECIMENOrdering Facility: [facility] Address: [address] [place], [place] [address] Performed By: #### 5 7021-8 ####[facility] LABCLIA [id number] [address] LABCLIA [id number] [place] [address] Ovalocytes LM Ql (Bld) Few Normal [facility] Comment on above: Order Comment: Speci men Type: BLOOD SPECIMENOrdering Facility: [facility] Address: [address] [place] [address] Performed By: #### 5 7021-8 ####[facility] LABCLIA [id number] [address] LABCLIA [id number] [place] [address] Platelet mean volume (Bld) [Entitic vol] Normal [facility] Comment on above: Order Comment: Speci men Type: BLOOD SPECIMENOrdering Facility: [facility] Address: [address] [place] [address] Result Comment: Unab le to report Performed By: #### 5 7021-8 ####[facility] LABCLIA [id number] [address] LABCLIA [id number] [place] [address] Platelets (Bld) [#/Vol] 64 10*3/uL Low 150-400 [facility] Comment on above: Order Comment: Speci men Type: BLOOD SPECIMENOrdering Facility: [facility] Address: [address] [place] [address] Result Comment: No c lot detected. Result rechecked. Performed By: #### 5 7021-8 ####[facility] LABCLIA [id number] [address] LABCLIA [id number] [place] [address] Platelets Estimate (Bld) [#/Vol] Decreased Normal [facility] Comment on above: Order Comment: Speci men Type: BLOOD SPECIMENOrdering Facility: [facility] Address: [address] [place] [address] Performed By: #### 5 7021-8 ####[facility] LABCLIA [id number] [address] LABCLIA [id number] [place] [address] RBC (Bld) [#/Vol] 2.38 10*6/uL Low 4.20-6.00 [facility] Comment on above: Order Comment: Speci men Type: BLOOD SPECIMENOrdering Facility: [facility] Address: [address] [place] [address] Performed By: #### 5 7021-8 ####[facility] LABCLIA [id number] [address] LABCLIA [id number] [place] [address] RED CELL MORPH Reviewed: see result s of individual morphologies Normal [facility] Comment on above: Order Comment: Speci men Type: BLOOD SPECIMENOrdering Facility: [facility] Address: [address] [place], [place] [address] Performed By: #### 5 7021-8 ####[facility] LABCLIA [id number] [address] LABCLIA [id number] [place] [address] WBC (Bld) [#/Vol] 2.74 10*3/uL Low 3.70-11.00 [facility] Comment on above: Order Comment: Speci men Type: BLOOD SPECIMENOrdering Facility: [facility] Address: [address] [place], [place] [address] Performed By: #### 5 7021-8 ####[facility] LABCLIA [id number] [address] LABCLIA [id number] [place] [address] WBC Left Shift Ql (Bld) Present Normal [facility] Comment on above: Order Comment: Speci men Type: BLOOD SPECIMENOrdering Facility: [facility] Address: [address] [place] [address] Performed By: #### 5 7021-8 ####[facility] LABCLIA [id number] [address] LABCLIA [id number] [place] [address] CNPNon 10-02-2022 CNPN Normal [facility] metabolic 2000 panelon 10-02-2022 Albumin [Mass/Vol] 3.8 g/dL Low 3.9-4.9 [facility] Comment on above: Order Comment: Speci men Type: BLOOD SPECIMENOrdering Facility: [facility] Address: [address] [place] [address] Performed By: #### 2 4323-8 ####[facility] LABCLIA [id number] [place] [address] ALP [Catalytic activity/Vol] 155 U/L High 38-113 [facility] Comment on above: Order Comment: Speci men Type: BLOOD SPECIMENOrdering Facility: [facility] Address: [address] Performed By: #### 2 4323-8 ####[facility] LABCLIA [id number] [place] [address] ALT [Catalytic activity/Vol] 62 U/L High 10-54 [facility] Comment on above: Order Comment: Speci men Type: BLOOD SPECIMENOrdering Facility: [facility] Address: [address] [place], [place] [address] Performed By: #### 2 4323-8 ####[facility] LABCLIA [id number] [place] [address] Anion gap [Moles/Vol] 9 mmol/L Normal 9-18 [facility] Comment on above: Order Comment: Speci men Type: BLOOD SPECIMENOrdering Facility: [facility] Address: [address] [address] Performed By: #### 2 4323-8 ####[facility] LABCLIA [id number] [place] [address] AST [Catalytic activity/Vol] 40 U/L Normal 14-40 [facility] Comment on above: Order Comment: Speci men Type: BLOOD SPECIMENOrdering Facility: [facility] Address: [address] [place] [address] Performed By: #### 2 4323-8 ####[facility] LABCLIA [id number] [place] [address] Bilirubin [Mass/Vol] 0.9 mg/dL Normal 0.2-1.3 [facility] Comment on above: Order Comment: Speci men Type: BLOOD SPECIMENOrdering Facility: [facility] Address: [address] [place] [address] Performed By: #### 2 4323-8 ####[facility] LABCLIA [id number] [place] [address] Calcium [Mass/Vol] 9.2 mg/dL Normal 8.5-10.2 [facility] Comment on above: Order Comment: Speci men Type: BLOOD SPECIMENOrdering Facility: [facility] Address: [address] [place] [address] Performed By: #### 2 4323-8 ####[facility] LABCLIA [id number] [place] [address] Chloride [Moles/Vol] 99 mmol/L Normal 97-105 [facility] Comment on above: Order Comment: Speci men Type: BLOOD SPECIMENOrdering Facility: [facility] Address: [address] [address] Performed By: #### 2 4323-8 ####[facility] LABCLIA [id number] [place] [address] CO2 [Moles/Vol] 33 mmol/L High 22-30 [facility] Comment on above: Order Comment: Speci men Type: BLOOD SPECIMENOrdering Facility: [facility] Address: [address] [address] Performed By: #### 2 4323-8 ####[facility] LABCLIA [id number] [place] [address] Creatinine [Mass/Vol] 1.47 mg/dL High 0.73-1.22 [facility] Comment on above: Order Comment: Speci men Type: BLOOD SPECIMENOrdering Facility: [facility] Address: [address] [place] [address] Performed By: #### 2 4323-8 ####[facility] LABCLIA [id number] [place] [address] ESTIMATED GLOMERULAR FILTRATION RATE 47 mL/min/1.73m??? Low >=60 [facility] Comment on above: Order Comment: Speci men Type: BLOOD SPECIMENOrdering Facility: [facility] Address: [address] [place] [address] Result Comment: Faye mated Glomerular Filtration Rate [...] actual GFR. Performed By: #### 2 4323-8 ####[facility] LABCLIA [id number] [place] [address] Glucose [Mass/Vol] 158 mg/dL High 74-99 [facility] Comment on above: Order Comment: Speci men Type: BLOOD SPECIMENOrdering Facility: [facility] Address: [address] [place] [address] Result Comment: The [place] [employer] (ADA) provides guidance for cutoff [...] Standards of Medical Care in Diabetes 2016, [place] [employer]. Diabetes Care. 2016.39(Suppl 1). Performed By: #### 2 4323-8 ####[facility] LABCLIA [id number] [place] [address] Potassium [Moles/Vol] 3.9 mmol/L Normal 3.7-5.1 [facility] Comment on above: Order Comment: Speci men Type: BLOOD SPECIMENOrdering Facility: [facility] Address: [address] [place] [address] Performed By: #### 2 4323-8 ####[facility] LABCLIA [id number] [place] [address] Protein [Mass/Vol] 6.8 g/dL Normal 6.3-8.0 [facility] Comment on above: Order Comment: Speci men Type: BLOOD SPECIMENOrdering Facility: [facility] Address: [address] [place] [address] Performed By: #### 2 4323-8 ####[facility] LABCLIA [id number] [place] [address] Sodium [Moles/Vol] 141 mmol/L Normal 136-144 [facility] Comment on above: Order Comment: Speci men Type: BLOOD SPECIMENOrdering Facility: [facility] Address: [address] [address] Performed By: #### 2 4323-8 ####[facility] LABCLIA [id number] [place] [address] Urea nitrogen [Mass/Vol] 30 mg/dL High 9-24 [facility] Comment on above: Order Comment: Speci men Type: BLOOD SPECIMENOrdering Facility: [facility] Address: [address] [address] Performed By: #### 2 4323-8 ####[facility] LABCLIA [id number] [place] [id number] HEMOGLOBIN AND HEMATOCRITon 10-02-2022 Hematocrit (Bld) [Volume fraction] 24.6 % Critically low 42.0-54.0 [facility] Comment on above: Performed By: #### H GBHCT #### [facility] [address] [place] [address] Dr. Benito To Hemoglobin (Bld) [Mass/Vol] 7.9 g/dL Critically low 14.0-18.0 [facility] Comment on above: Performed By: #### H GBHCT #### [facility] [address] [place] [address] Dr. Benito To TYPE AND SCREENon 10-02-2022 TYPE AND SCREEN Negative Normal [facility] Comment on above: Performed By: #### T NS, PRBC #### [facility] [address] [place] [address] Dr. Benito To PRBC LEUKOREDUCEDon 10-02-19 ABO and Rh group Nom (Bld) Cross Match Result Compatible Unit Blood Type A Pos Unit Number [id number] Status Information Transfused Product ID Red Blood Cells Product Code [id number] Cross Match Result Compatible Unit Blood Type A Pos Unit Number [id number] Status Information Transfused Product ID Red Blood Cells Product Code [id number] Normal [facility] Comment on above: Performed By: #### T NS, PRBC #### [facility] [address] [place] [address] Dr. Benito To ABO and Rh group Nom (Bld) Cross Match Result Compatible Unit Blood Type A Pos Unit Number [id number] Status Information Transfused Product ID Red Blood Cells Product Code [id number] Cross Match Result Compatible Unit Blood Type A Pos Unit Number [id number] Status Information Transfused Product ID Red Blood Cells Product Code [id number] [facility] Comment on above: Performed By: #### P RBC, TNS #### [facility] [address] [place] [address] Dr. Benito To ABO and Rh group Nom (Bld) Cross Match Result Compatible Unit Blood Type A Pos Unit Number [id number] Status Information Released Specimen Exp Date Product ID Red Blood Cells Product Code [id number] Cross Match Result Compatible Unit Blood Type A Pos Unit Number [id number] Status Information Transfused Product ID Red Blood Cells Product Code [id number] [facility] Comment on above: Performed By: #### P RBC, TNS #### [facility] [address] [place] [address] Dr. Benito To PRBC LEUKOREDUCED Cross Match Result Compatible Unit Blood Type O Neg Unit Number [id number] Status Information Transfused Product ID Red Blood Cells Product Code [id number] [facility] Comment on above: Performed By: #### P RBC, TNS #### [facility] [address] [place] [address] Dr. Benito To CBC W Auto Differential pane l (Bld)on 09-25-2022 Anisocytosis Ql (Bld) Present Normal [facility] Comment on above: Order Comment: Speci men Type: BLOOD SPECIMENOrdering Facility: [facility] Address: [address] [place] [address] Performed By: #### 5 7021-8 ####[facility] LABCLIA [id number] [id number] [place] [address] LABCLIA [id number] [place] [address] Basophils (Bld) [#/Vol] 0.00 10*3/uL Normal <0.11 [facility] Comment on above: Order Comment: Speci men Type: BLOOD SPECIMENOrdering Facility: [facility] Address: [address] [place] [address] Performed By: #### 5 7021-8 ####[facility] LABCLIA [id number] [address] LABCLIA [id number] [place] [address] Basophils/100 WBC (Bld) 0.0 % Normal [facility] Comment on above: Order Comment: Speci men Type: BLOOD SPECIMENOrdering Facility: [facility] Address: [address] [place] [address] Performed By: #### 5 7021-8 ####[facility] LABCLIA [id number] [address] LABCLIA [id number] [place] [address] Differential cell count method Nom (Bld) Manual Normal [facility] Comment on above: Order Comment: Speci men Type: BLOOD SPECIMENOrdering Facility: [facility] Address: [address] [place] [address] Performed By: #### 5 7021-8 ####[facility] LABCLIA [id number] [address] LABCLIA [id number] [place] [address] Eosinophils (Bld) [#/Vol] 0.00 10*3/uL Normal <0.46 [facility] Comment on above: Order Comment: Speci men Type: BLOOD SPECIMENOrdering Facility: [facility] Address: [address] [place], [place] [address] Performed By: #### 5 7021-8 ####[facility] LABCLIA [id number] [address] LABCLIA [id number] [place] [address] Eosinophils/100 WBC (Bld) 0.0 % Normal [facility] Comment on above: Order Comment: Speci men Type: BLOOD SPECIMENOrdering Facility: [facility] Address: [address] [place] [address] Performed By: #### 5 7021-8 ####[facility] LABCLIA [id number] [address] LABCLIA [id number] [place] [address] Erythrocyte distribution width (RBC) [Ratio] 18.6 % High 11.5-15.0 [facility] Comment on above: Order Comment: Speci men Type: BLOOD SPECIMENOrdering Facility: [facility] Address: [address] [place] [address] Performed By: #### 5 7021-8 ####[facility] LABCLIA [id number] [address] LABCLIA [id number] [place] [address] Hematocrit (Bld) [Volume fraction] 21.7 % Low 39.0-51.0 [facility] Comment on above: Order Comment: Speci men Type: BLOOD SPECIMENOrdering Facility: [facility] Address: [address] [place] [address] Performed By: #### 5 7021-8 ####[facility] LABCLIA [id number] [address] LABCLIA [id number] [place] [address] Hemoglobin (Bld) [Mass/Vol] 6.9 g/dL Low 13.0-17.0 [facility] Comment on above: Order Comment: Speci men Type: BLOOD SPECIMENOrdering Facility: [facility] Address: [address] [place] [address] Performed By: #### 5 7021-8 ####[facility] LABCLIA [id number] [address] LABCLIA [id number] [place] [address] Lymphocytes (Bld) [#/Vol] 1.20 10*3/uL Normal 1.00-4.00 [facility] Comment on above: Order Comment: Speci men Type: BLOOD SPECIMENOrdering Facility: [facility] Address: [address] [place] [address] Performed By: #### 5 7021-8 ####[facility] LABCLIA [id number] [address] LABCLIA [id number] [place] [address] Lymphocytes/100 WBC (Bld) 32.0 % Normal [facility] Comment on above: Order Comment: Speci men Type: BLOOD SPECIMENOrdering Facility: [facility] Address: [address] [place] [address] Performed By: #### 5 7021-8 ####[facility] LABCLIA [id number] [address] LABCLIA [id number] [place] [address] MCH (RBC) [Entitic mass] 32.1 pg Normal 26.0-34.0 [facility] Comment on above: Order Comment: Speci men Type: BLOOD SPECIMENOrdering Facility: [facility] Address: [address] [place] [address] Performed By: #### 5 7021-8 ####[facility] LABCLIA [id number] [address] LABCLIA [id number] [place] [address] MCHC (RBC) [Mass/Vol] 31.8 g/dL Normal 30.5-36.0 [facility] Comment on above: Order Comment: Speci men Type: BLOOD SPECIMENOrdering Facility: [facility] Address: [address] [place] [address] Performed By: #### 5 7021-8 ####[facility] LABCLIA [id number] [address] LABCLIA [id number] [place] [address] MCV (RBC) [Entitic vol] 100.9 fL High 80.0-100.0 [facility] Comment on above: Order Comment: Speci men Type: BLOOD SPECIMENOrdering Facility: [facility] Address: [address] [place] [address] Performed By: #### 5 7021-8 ####[facility] LABCLIA [id number] [address] LABCLIA [id number] [place] [address] Metamyelocytes/100 WBC (Bld) 1.0 % Normal [facility] Comment on above: Order Comment: Speci men Type: BLOOD SPECIMENOrdering Facility: [facility] Address: [address] [place], [place] [address] Performed By: #### 5 7021-8 ####[facility] LABCLIA [id number] [address] LABCLIA [id number] [place] [address] Monocytes (Bld) [#/Vol] 0.41 10*3/uL Normal <0.87 [facility] Comment on above: Order Comment: Speci men Type: BLOOD SPECIMENOrdering Facility: [facility] Address: [address] [place] [address] Performed By: #### 5 7021-8 ####[facility] LABCLIA [id number] [address] LABCLIA [id number] [place] [address] Monocytes/100 WBC (Bld) 11.0 % Normal [facility] Comment on above: Order Comment: Speci men Type: BLOOD SPECIMENOrdering Facility: [facility] Address: [address] [place] [address] Performed By: #### 5 7021-8 ####[facility] LABCLIA [id number] [address] LABCLIA [id number] [place] [address] MYELO% 10.0 % Normal [facility] Comment on above: Order Comment: Speci men Type: BLOOD SPECIMENOrdering Facility: [facility] Address: [address] [place] [address] Performed By: #### 5 7021-8 ####[facility] LABCLIA [id number] [address] LABCLIA [id number] [place] [address] Neutrophils (Bld) [#/Vol] 1.73 10*3/uL Normal 1.45-7.50 [facility] Comment on above: Order Comment: Speci men Type: BLOOD SPECIMENOrdering Facility: [facility] Address: [address] [place] [address] Performed By: #### 5 7021-8 ####[facility] LABCLIA [id number] [address] [address] [facility] LABCLIA [id number] [place] [address] Neutrophils/100 WBC (Bld) 46.0 % Normal [facility] Comment on above: Order Comment: Speci men Type: BLOOD SPECIMENOrdering Facility: [facility] Address: [address] [place] [address] Performed By: #### 5 7021-8 ####[facility] LABCLIA [id number] [address] LABCLIA [id number] [place] [address] Nucleated RBC (Bld) [#/Vol] 10*3/uL Normal <0.01 [facility] Comment on above: Order Comment: Speci men Type: BLOOD SPECIMENOrdering Facility: [facility] Address: [address] [place], [place] [address] Performed By: #### 5 7021-8 ####[facility] LABCLIA [id number] [address] LABCLIA [id number] [place] [address] Nucleated RBC/100 WBC (Bld) [Ratio] 0.0 /100 WBC Normal [facility] Comment on above: Order Comment: Speci men Type: BLOOD SPECIMENOrdering Facility: [facility] Address: [address] [place], [place] [address] Performed By: #### 5 7021-8 ####[facility] LABCLIA [id number] [address] LABCLIA [id number] [place] [address] Ovalocytes LM Ql (Bld) Few Normal [facility] Comment on above: Order Comment: Speci men Type: BLOOD SPECIMENOrdering Facility: [facility] Address: [address] [place] [address] Performed By: #### 5 7021-8 ####[facility] LABCLIA [id number] [address] LABCLIA [id number] [place] [address] Platelet mean volume (Bld) [Entitic vol] Normal [facility] Comment on above: Order Comment: Speci men Type: BLOOD SPECIMENOrdering Facility: [facility] Address: [address] [place], [place] [address] Result Comment: Unab le to Report. Performed By: #### 5 7021-8 ####[facility] LABCLIA [id number] [address] LABCLIA [id number] [place] [address] Platelets (Bld) [#/Vol] 71 10*3/uL Low 150-400 [facility] Comment on above: Order Comment: Speci men Type: BLOOD SPECIMENOrdering Facility: [facility] Address: [address] [place] [address] Result Comment: No c lot detected. Checked and Verified Performed By: #### 5 7021-8 ####[facility] LABCLIA [id number] [address] LABCLIA [id number] [place] [address] Platelets Estimate (Bld) [#/Vol] Decreased Normal [facility] Comment on above: Order Comment: Speci men Type: BLOOD SPECIMENOrdering Facility: [facility] Address: [address] [place] [address] Performed By: #### 5 7021-8 ####[facility] LABCLIA [id number] [address] [facility] LABCLIA [id number] [place] [address] RBC (Bld) [#/Vol] 2.15 10*6/uL Low 4.20-6.00 [facility] Comment on above: Order Comment: Speci men Type: BLOOD SPECIMENOrdering Facility: [facility] Address: [address] [place] [address] Performed By: #### 5 7021-8 ####[facility] LABCLIA [id number] [address] LABCLIA [id number] [place] [address] RED CELL MORPH Reviewed: see result s of individual morphologies Normal [facility] Comment on above: Order Comment: Speci men Type: BLOOD SPECIMENOrdering Facility: [facility] Address: [address] [place] [address] Performed By: #### 5 7021-8 ####[facility] LABCLIA [id number] [address] LABCLIA [id number] [place] [address] WBC (Bld) [#/Vol] 3.75 10*3/uL Normal 3.70-11.00 [facility] Comment on above: Order Comment: Speci men Type: BLOOD SPECIMENOrdering Facility: [facility] Address: [address] [place] [address] Result Comment: Resu lts checked and verified.No clot detected. Performed By: #### 5 7021-8 ####[facility] LABCLIA [id number] [address] LABCLIA [id number] [place] [address] WBC Left Shift Ql (Bld) Present Normal [facility] Comment on above: Order Comment: Speci men Type: BLOOD SPECIMENOrdering Facility: [facility] Address: [address] [address] Performed By: #### 5 7021-8 ####[facility] LABCLIA [id number] HALEY [place]AM[id number] [address] [facility] LABCLIA [id number] [place] [address] CNPNon 09-25-2022 CNPN Normal [facility] Comprehensive metabolic 2000 panelon 09-25-2022 Albumin [Mass/Vol] 3.7 g/dL Low 3.9-4.9 [facility] Comment on above: Order Comment: Speci men Type: BLOOD SPECIMENOrdering Facility: [facility] Address: [address] [place] [address] Performed By: #### 2 4323-8 ####[facility] LABCLIA [id number] [place] [address] ALP [Catalytic activity/Vol] 159 U/L High 38-113 [facility] Comment on above: Order Comment: Speci men Type: BLOOD SPECIMENOrdering Facility: [facility] Address: [address] [place] [address] Performed By: #### 2 4323-8 ####[facility] LABCLIA [id number] [place] [address] ALT [Catalytic activity/Vol] 59 U/L High 10-54 [facility] Comment on above: Order Comment: Speci men Type: BLOOD SPECIMENOrdering Facility: [facility] Address: [address] [address] Performed By: #### 2 4323-8 ####[facility] LABCLIA [id number] [place] [address] Anion gap [Moles/Vol] 9 mmol/L Normal 9-18 [facility] Comment on above: Order Comment: Speci men Type: BLOOD SPECIMENOrdering Facility: [facility] Address: [address] [address] Performed By: #### 2 4323-8 ####[facility] LABCLIA [id number] [place] [address] AST [Catalytic activity/Vol] 35 U/L Normal 14-40 [facility] Comment on above: Order Comment: Speci men Type: BLOOD SPECIMENOrdering Facility: [facility] Address: [address] [address] Performed By: #### 2 4323-8 ####[facility] LABCLIA [id number] [place] [address] Bilirubin [Mass/Vol] 1.0 mg/dL Normal 0.2-1.3 [facility] Comment on above: Order Comment: Speci men Type: BLOOD SPECIMENOrdering Facility: [facility] Address: [address] [address] Performed By: #### 2 4323-8 ####[facility] LABCLIA [id number] [place] [address] Calcium [Mass/Vol] 9.1 mg/dL Normal 8.5-10.2 [facility] Comment on above: Order Comment: Speci men Type: BLOOD SPECIMENOrdering Facility: [facility] Address: [address] [address] Performed By: #### 2 4323-8 ####[facility] LABCLIA [id number] [place] [address] Chloride [Moles/Vol] 101 mmol/L Normal 97-105 [facility] Comment on above: Order Comment: Speci men Type: BLOOD SPECIMENOrdering Facility: [facility] Address: [address] [place] [address] Performed By: #### 2 4323-8 ####[facility] LABCLIA [id number] [place] [address] CO2 [Moles/Vol] 31 mmol/L High 22-30 [facility] Comment on above: Order Comment: Speci men Type: BLOOD SPECIMENOrdering Facility: [facility] Address: [address] [address] Performed By: #### 2 4323-8 ####[facility] LABCLIA [id number] [place] [address] Creatinine [Mass/Vol] 1.32 mg/dL High 0.73-1.22 [facility] Comment on above: Order Comment: Speci men Type: BLOOD SPECIMENOrdering Facility: [facility] Address: [address] [address] Performed By: #### 2 4323-8 ####[facility] LABCLIA [id number] [place] [address] ESTIMATED GLOMERULAR FILTRATION RATE 54 mL/min/1.73m??? Low >=60 [facility] Comment on above: Order Comment: Speci men Type: BLOOD SPECIMENOrdering Facility: [facility] Address: [address] [place] [address] Result Comment: Faye mated Glomerular Filtration Rate [...] actual GFR. Performed By: #### 2 4323-8 ####[facility] LABCLIA [id number] [place] [address] Glucose [Mass/Vol] 156 mg/dL High 74-99 [facility] Comment on above: Order Comment: Speci men Type: BLOOD SPECIMENOrdering Facility: [facility] Address: [address] [address] Result Comment: The [place] [employer] (ADA) provides guidance for cutoff [...] Standards of Medical Care in Diabetes 2016, [place] [employer]. Diabetes Care. 2016.39(Suppl 1). Performed By: #### 2 4323-8 ####[facility] LABCLIA [id number] [place] [address] Potassium [Moles/Vol] 4.1 mmol/L Normal 3.7-5.1 [facility] Comment on above: Order Comment: Speci men Type: BLOOD SPECIMENOrdering Facility: [facility] Address: [address] [place] [address] Performed By: #### 2 4323-8 ####[facility] LABCLIA [id number] [place] [address] Protein [Mass/Vol] 6.7 g/dL Normal 6.3-8.0 [facility] Comment on above: Order Comment: Speci men Type: BLOOD SPECIMENOrdering Facility: [facility] Address: [address] [place] [address] Performed By: #### 2 4323-8 ####[facility] [facility] LABCLIA [id number] [place] [address] Sodium [Moles/Vol] 141 mmol/L Normal 136-144 [facility] Comment on above: Order Comment: Speci men Type: BLOOD SPECIMENOrdering Facility: [facility] Address: [address] [place] [address] Performed By: #### 2 4323-8 ####[facility] LABCLIA [id number] [place] [address] Urea nitrogen [Mass/Vol] 19 mg/dL Normal 9-24 [facility] Comment on above: Order Comment: Speci men Type: BLOOD SPECIMENOrdering Facility: [facility] Address: [address] [place] [address] Performed By: #### 2 4323-8 ####[facility] LABCLIA [id number] [place] [address] HEMOGLOBIN AND HEMATOCRITon 09-25-2022 Hematocrit (Bld) [Volume fraction] 21.2 % Critically low 42.0-54.0 [facility] Comment on above: Performed By: #### T NS, PRBC #### [facility] [address] [address] [address] Benito To Hemoglobin (Bld) [Mass/Vol] 6.7 g/dL Critically low 14.0-18.0 [facility] Comment on above: Performed By: #### T NS, PRBC #### [facility] [address] [address] [address] Benito To TYPE AND SCREENon 09-25-2022 TYPE AND SCREEN Negative Normal [facility] Comment on above: Performed By: #### P RBC, TNS #### [facility] [address] [address] [address] Benito To CBC W Auto Differential pane l (Bld)on 09-18-2022 Anisocytosis Ql (Bld) Present Normal [facility] Comment on above: Order Comment: Speci men Type: BLOOD SPECIMENOrdering Facility: [facility] Address: [address] [place], [place] [address] Performed By: #### 5 7021-8 ####[facility] LABCLIA [id number] [facility] [id number] [address] [facility] LABCLIA [id number] [place] [address] Basophils (Bld) [#/Vol] 0.09 10*3/uL Normal <0.11 [facility] Comment on above: Order Comment: Speci men Type: BLOOD SPECIMENOrdering Facility: [facility] Address: [address] Performed By: #### 5 7021-8 ####[facility] LABCLIA [id number] [address] LABCLIA [id number] [place] [address] Basophils/100 WBC (Bld) 4.0 % Normal [facility] Comment on above: Order Comment: Speci men Type: BLOOD SPECIMENOrdering Facility: [facility] Address: [address] Performed By: #### 5 7021-8 ####[facility] LABCLIA [id number] [address] LABCLIA [id number] [place] [address] Differential cell count method Nom (Bld) Manual Normal [facility] Comment on above: Order Comment: Speci men Type: BLOOD SPECIMENOrdering Facility: [facility] Address: [address] [place], [place] [address] Performed By: #### 5 7021-8 ####[facility] LABCLIA [id number] [address] LABCLIA [id number] [place] [address] Eosinophils (Bld) [#/Vol] 0.00 10*3/uL Normal <0.46 [facility] Comment on above: Order Comment: Speci men Type: BLOOD SPECIMENOrdering Facility: [facility] Address: [address] [place], [place] [address] Performed By: #### 5 7021-8 ####[facility] LABCLIA [id number] [address] LABCLIA [id number] [place] [address] Eosinophils/100 WBC (Bld) 0.0 % Normal [facility] Comment on above: Order Comment: Speci men Type: BLOOD SPECIMENOrdering Facility: [facility] Address: [address] [place] [address] Performed By: #### 5 7021-8 ####[facility] LABCLIA [id number] [address] LABCLIA [id number] [place] [address] Erythrocyte distribution width (RBC) [Ratio] 17.1 % High 11.5-15.0 [facility] Comment on above: Order Comment: Speci men Type: BLOOD SPECIMENOrdering Facility: [facility] Address: [address] [place] [address] Performed By: #### 5 7021-8 ####[facility] LABCLIA [id number] [address] LABCLIA [id number] [place] [address] Hematocrit (Bld) [Volume fraction] 25.3 % Low 39.0-51.0 [facility] Comment on above: Order Comment: Speci men Type: BLOOD SPECIMENOrdering Facility: [facility] Address: [address] [place], [place] [address] Performed By: #### 5 7021-8 ####[facility] LABCLIA [id number] [address] LABIA [id number] [place] [address] Hemoglobin (Bld) [Mass/Vol] 8.0 g/dL Low 13.0-17.0 [facility] Comment on above: Order Comment: Speci men Type: BLOOD SPECIMENOrdering Facility: [facility] Address: [address] [place], [place] [address] Performed By: #### 5 7021-8 ####[facility] LABCLIA [id number] [address] LABCLIA [id number] [place] [address] Lymphocytes (Bld) [#/Vol] 0.70 10*3/uL Low 1.00-4.00 [facility] Comment on above: Order Comment: Speci men Type: BLOOD SPECIMENOrdering Facility: [facility] Address: [address] [place] [address] Performed By: #### 5 7021-8 ####[facility] LABCLIA [id number] [address] LABCLIA [id number] [place] [address] Lymphocytes/100 WBC (Bld) 30.0 % Normal [facility] Comment on above: Order Comment: Speci men Type: BLOOD SPECIMENOrdering Facility: [facility] Address: [address] [place] [address] Performed By: #### 5 7021-8 ####[facility] LABCLIA [id number] [address] LABCLIA [id number] [place] [address] MCH (RBC) [Entitic mass] 31.9 pg Normal 26.0-34.0 [facility] Comment on above: Order Comment: Speci men Type: BLOOD SPECIMENOrdering Facility: [facility] Address: [address] [place] [address] Performed By: #### 5 7021-8 ####[facility] LABCLIA [id number] [address] LABCLIA [id number] [place] [address] MCHC (RBC) [Mass/Vol] 31.6 g/dL Normal 30.5-36.0 [facility] Comment on above: Order Comment: Speci men Type: BLOOD SPECIMENOrdering Facility: [facility] Address: [address] [place] [address] Performed By: #### 5 7021-8 ####[facility] LABCLIA [id number] [address] LABCLIA [id number] [place] [address] MCV (RBC) [Entitic vol] 100.8 fL High 80.0-100.0 [facility] Comment on above: Order Comment: Speci men Type: BLOOD SPECIMENOrdering Facility: [facility] Address: [address] [place] [address] Performed By: #### 5 7021-8 ####[facility] LABCLIA [id number] [address] LABCLIA [id number] [place] [address] Monocytes (Bld) [#/Vol] 0.21 10*3/uL Normal <0.87 [facility] Comment on above: Order Comment: Speci men Type: BLOOD SPECIMENOrdering Facility: [facility] Address: [address] [place], [place] [address] Performed By: #### 5 7021-8 ####[facility] LABCLIA [id number] [address] LABCLIA [id number] [place] [address] Monocytes/100 WBC (Bld) 9.0 % Normal [facility] Comment on above: Order Comment: Speci men Type: BLOOD SPECIMENOrdering Facility: [facility] Address: [address] [place], [place] [address] Performed By: #### 5 7021-8 ####[facility] LABCLIA [id number] [address] LABCLIA [id number] [place] [address] MYELO% 11.0 % Normal [facility] Comment on above: Order Comment: Speci men Type: BLOOD SPECIMENOrdering Facility: [facility] Address: [address] [place], [place] [address] Performed By: #### 5 7021-8 ####[facility] LABCLIA [id number] [address] LABCLIA [id number] [place] [address] Neutrophils (Bld) [#/Vol] 1.10 10*3/uL Low 1.45-7.50 [facility] Comment on above: Order Comment: Speci men Type: BLOOD SPECIMENOrdering Facility: [facility] Address: [address] [place] [address] Performed By: #### 5 7021-8 ####[facility] LABCLIA [id number] [address] LABCLIA [id number] [place] [address] Neutrophils/100 WBC (Bld) 47.0 % Normal [facility] Comment on above: Order Comment: Speci men Type: BLOOD SPECIMENOrdering Facility: [facility] Address: [address] [place] [address] Performed By: #### 5 7021-8 ####[facility] LABCLIA [id number] [address] LABCLIA [id number] [place] [address] Nucleated RBC (Bld) [#/Vol] 10*3/uL Normal <0.01 [facility] Comment on above: Order Comment: Speci men Type: BLOOD SPECIMENOrdering Facility: [facility] Address: [address] [place] [address] Performed By: #### 5 7021-8 ####[facility] LABCLIA [id number] [place] [id number] [facility] LABCLIA [id number] [place] [address] Nucleated RBC/100 WBC (Bld) [Ratio] 0.0 /100 WBC Normal [facility] Comment on above: Order Comment: Speci men Type: BLOOD SPECIMENOrdering Facility: [facility] Address: [address] [place] [address] Performed By: #### 5 7021-8 ####[facility] LABCLIA [id number] [address] LABCLIA [id number] [place] [address] Ovalocytes LM Ql (Bld) Few Normal [facility] Comment on above: Order Comment: Speci men Type: BLOOD SPECIMENOrdering Facility: [facility] Address: [address] [place] [address] Performed By: #### 5 7021-8 ####[facility] LABCLIA [id number] [address] LABCLIA [id number] [place] [id number] Platelet mean volume (Bld) [Entitic vol] Normal [facility] Comment on above: Order Comment: Speci men Type: BLOOD SPECIMENOrdering Facility: [facility] Address: [address] [place] [address] Result Comment: Unab le to Report. Performed By: #### 5 7021-8 ####[facility] LABCLIA [id number] LABCLIA [id number] [place] [address] Platelets (Bld) [#/Vol] 65 10*3/uL Low 150-400 [facility] Comment on above: Order Comment: Speci men Type: BLOOD SPECIMENOrdering Facility: [facility] Address: [address] [place] [address] Result Comment: Resu lts checked and verified.No clot detected. Performed By: #### 5 7021-8 ####[facility] LABCLIA [id number] [address] LABCLIA [id number] [place] [address] Platelets Estimate (Bld) [#/Vol] Decreased Normal [facility] Comment on above: Order Comment: Speci men Type: BLOOD SPECIMENOrdering Facility: [facility] Address: [address] [place] [address] Performed By: #### 5 7021-8 ####[facility] LABCLIA [id number] [address] LABCLIA [id number] [place] [address] Polychromasia LM Ql (Bld) Slight Normal [facility] Comment on above: Order Comment: Speci men Type: BLOOD SPECIMENOrdering Facility: [facility] Address: [address] [place] [address] Performed By: #### 5 7021-8 ####[facility] LABCLIA [id number] [address] LABCLIA [id number] [place] [address] RBC (Bld) [#/Vol] 2.51 10*6/uL Low 4.20-6.00 [facility] Comment on above: Order Comment: Speci men Type: BLOOD SPECIMENOrdering Facility: [facility] Address: [address] [place] [address] Performed By: #### 5 7021-8 ####[facility] LABCLIA [id number] [address] LABCLIA [id number] [place] [address] RED CELL MORPH Reviewed: see result s of individual morphologies Normal [facility] Comment on above: Order Comment: Speci men Type: BLOOD SPECIMENOrdering Facility: [facility] Address: [address] [place] [address] Performed By: #### 5 7021-8 ####[facility] LABCLIA [id number] [address] LABCLIA [id number] [place] [address] WBC (Bld) [#/Vol] 2.33 10*3/uL Low 3.70-11.00 [facility] Comment on above: Order Comment: Speci men Type: BLOOD SPECIMENOrdering Facility: [facility] Address: [address] [place] [address] Result Comment: Resu lts checked and verified.No clot detected. Performed By: #### 5 7021-8 ####[facility] LABCLIA [id number] [address] LABCLIA [id number] [place] [address] WBC Left Shift Ql (Bld) Present Normal [facility] Comment on above: Order Comment: Speci men Type: BLOOD SPECIMENOrdering Facility: [facility] Address: [address] [place] [address] Performed By: #### 5 7021-8 ####[facility] LABCLIA [id number] [place] [id number] LABCLIA [id number] [place] [address] CNOVSPon 09-18-2022 CNOVSP Normal [facility] Comprehensive metabolic 2000 panelon 09-18-2022 Albumin [Mass/Vol] 3.9 g/dL Normal 3.9-4.9 [facility] Comment on above: Order Comment: Speci men Type: BLOOD SPECIMENOrdering Facility: [facility] Address: [address] [address] Performed By: #### 2 4323-8 ####[facility] LABCLIA [id number] [place] [address] ALP [Catalytic activity/Vol] 164 U/L High 38-113 [facility] Comment on above: Order Comment: Speci men Type: BLOOD SPECIMENOrdering Facility: [facility] Address: [address] [address] Performed By: #### 2 4323-8 ####[facility] LABCLIA [id number] [place] [address] ALT [Catalytic activity/Vol] 60 U/L High 10-54 [facility] Comment on above: Order Comment: Speci men Type: BLOOD SPECIMENOrdering Facility: [facility] Address: [address] [place] [address] Performed By: #### 2 4323-8 ####[facility] LABCLIA [id number] [place] [address] Anion gap [Moles/Vol] 11 mmol/L Normal 9-18 [facility] Comment on above: Order Comment: Speci men Type: BLOOD SPECIMENOrdering Facility: [facility] Address: [address] [place] [address] Performed By: #### 2 4323-8 ####[facility] LABCLIA [id number] [place] [address] AST [Catalytic activity/Vol] 36 U/L Normal 14-40 [facility] Comment on above: Order Comment: Speci men Type: BLOOD SPECIMENOrdering Facility: [facility] Address: [address] [address] Performed By: #### 2 4323-8 ####[facility] LABCLIA [id number] [place] [address] Bilirubin [Mass/Vol] 1.2 mg/dL Normal 0.2-1.3 [facility] Comment on above: Order Comment: Speci men Type: BLOOD SPECIMENOrdering Facility: [facility] Address: [address] [address] Performed By: #### 2 4323-8 ####[facility] LABCLIA [id number] [place] [address] Calcium [Mass/Vol] 9.0 mg/dL Normal 8.5-10.2 [facility] Comment on above: Order Comment: Speci men Type: BLOOD SPECIMENOrdering Facility: [facility] Address: [address] [address] Performed By: #### 2 4323-8 ####[facility] LABCLIA [id number] [place] [address] Chloride [Moles/Vol] 100 mmol/L Normal 97-105 [facility] Comment on above: Order Comment: Speci men Type: BLOOD SPECIMENOrdering Facility: [facility] Address: [address] [address] Performed By: #### 2 4323-8 ####[facility] LABCLIA [id number] [place] [address] CO2 [Moles/Vol] 33 mmol/L High 22-30 [facility] Comment on above: Order Comment: Speci men Type: BLOOD SPECIMENOrdering Facility: [facility] Address: [address] [address] Performed By: #### 2 4323-8 ####[facility] LABCLIA [id number] [place] [address] Creatinine [Mass/Vol] 1.40 mg/dL High 0.73-1.22 [facility] Comment on above: Order Comment: Davi avendaño Type: BLOOD SPECIMENOrdering Facility: [facility] Address: [address] [place] [address] Performed By: #### 2 4323-8 ####[facility] LABCLIA [id number] [place] [address] ESTIMATED GLOMERULAR FILTRATION RATE 50 mL/min/1.73m??? Low >=60 [facility] Comment on above: Order Comment: Davi avendaño Type: BLOOD SPECIMENOrdering Facility: [facility] Address: [address] [place] [address] Result Comment: Faye mated Glomerular Filtration Rate [...] actual GFR. Performed By: #### 2 4323-8 ####[facility] LABCLIA [id number] [place] [address] Glucose [Mass/Vol] 143 mg/dL High 74-99 [facility] Comment on above: Order Comment: Davi avendaño Type: BLOOD SPECIMENOrdering Facility: [facility] Address: [address] [place] [address] Result Comment: The [place] [employer] (ADA) provides guidance for cutoff [...] Standards of Medical Care in Diabetes 2016, [place] [employer]. Diabetes Care. 2016.39(Suppl 1). Performed By: #### 2 4323-8 ####[facility] LABCLIA [id number] [place] [address] Potassium [Moles/Vol] 3.8 mmol/L Normal 3.7-5.1 [facility] Comment on above: Order Comment: Speci men Type: BLOOD SPECIMENOrdering Facility: [facility] Address: [address] [address] Performed By: #### 2 4323-8 ####[facility] LABCLIA [id number] [place] [address] Protein [Mass/Vol] 6.7 g/dL Normal 6.3-8.0 [facility] Comment on above: Order Comment: Speci men Type: BLOOD SPECIMENOrdering Facility: [facility] Address: [address] [place] [place] [address] Performed By: #### 2 4323-8 ####[facility] LABCLIA [id number] [place] [address] Sodium [Moles/Vol] 144 mmol/L Normal 136-144 [facility] Comment on above: Order Comment: Speci men Type: BLOOD SPECIMENOrdering Facility: [facility] Address: [address] [place] [place] [address] Performed By: #### 2 4323-8 ####[facility] LABCLIA [id number] [place] [address] Urea nitrogen [Mass/Vol] 21 mg/dL Normal 9-24 [facility] Comment on above: Order Comment: Speci men Type: BLOOD SPECIMENOrdering Facility: [facility] Address: [address] [place] [address] Performed By: #### 2 4323-8 ####[facility] LABCLIA [id number] [place] [address] CBC W Auto Differential pane l (Bld)on 09-11-2022 Anisocytosis Ql (Bld) Present Normal [facility] Comment on above: Order Comment: Speci men Type: BLOOD SPECIMENOrdering Facility: [facility] Address: [address] [place] [address] Performed By: #### 5 7021-8 ####[facility] LABCLIA [id number] [address] LABCLIA [id number] [place] [address] Basophils (Bld) [#/Vol] 0.00 10*3/uL Normal <0.11 [facility] Comment on above: Order Comment: Speci men Type: BLOOD SPECIMENOrdering Facility: [facility] Address: [address] [place] [address] Performed By: #### 5 7021-8 ####[facility] LABCLIA [id number] [address] LABCLIA [id number] [place] [address] Basophils/100 WBC (Bld) 0.0 % Normal [facility] Comment on above: Order Comment: Speci men Type: BLOOD SPECIMENOrdering Facility: [facility] Address: [address] [place] [address] Performed By: #### 5 7021-8 ####[facility] LABCLIA [id number] [address] LABCLIA [id number] [place] [address] BLAST% 1.0 % High <=0.0 [facility] Comment on above: Order Comment: Speci men Type: BLOOD SPECIMENOrdering Facility: [facility] Address: [address] [place] [address] Performed By: #### 5 7021-8 ####[facility] LABCLIA [id number] [address] LABCLIA [id number] [place] [address] Differential cell count method Nom (Bld) Manual Normal [facility] Comment on above: Order Comment: Speci men Type: BLOOD SPECIMENOrdering Facility: [facility] Address: [address] [place] [address] Performed By: #### 5 7021-8 ####[facility] LABCLIA [id number] [address] LABCLIA [id number] [place] [address] DYSPLASTIC PMNS Occasional Normal [facility] Comment on above: Order Comment: Speci men Type: BLOOD SPECIMENOrdering Facility: [facility] Address: [address] [place] [address] Performed By: #### 5 7021-8 ####[facility] LABCLIA [id number] [address] LABCLIA [id number] [place] [address] Eosinophils (Bld) [#/Vol] 0.00 10*3/uL Normal <0.46 [facility] Comment on above: Order Comment: Speci men Type: BLOOD SPECIMENOrdering Facility: [facility] Address: [address] [place] [address] Performed By: #### 5 7021-8 ####[facility] LABCLIA [id number] [address] LABCLIA [id number] [place] [address] Eosinophils/100 WBC (Bld) 0.0 % Normal [facility] Comment on above: Order Comment: Speci men Type: BLOOD SPECIMENOrdering Facility: [facility] Address: [address] [place] [address] Performed By: #### 5 7021-8 ####[facility] LABCLIA [id number] [address] LABCLIA [id number] [place] [address] Erythrocyte distribution width (RBC) [Ratio] 16.1 % High 11.5-15.0 [facility] Comment on above: Order Comment: Speci men Type: BLOOD SPECIMENOrdering Facility: [facility] Address: [address] [place] [address] Performed By: #### 5 7021-8 ####[facility] LABCLIA [id number] [address] LABCLIA [id number] [place] [address] Giant platelets LM Ql (Bld) Occasional Normal [facility] Comment on above: Order Comment: Speci men Type: BLOOD SPECIMENOrdering Facility: [facility] Address: [address] [place] [address] Performed By: #### 5 7021-8 ####[facility] LABCLIA [id number] [address] LABCLIA [id number] [place] [address] Hematocrit (Bld) [Volume fraction] 22.5 % Low 39.0-51.0 [facility] Comment on above: Order Comment: Speci men Type: BLOOD SPECIMENOrdering Facility: [facility] Address: [address] [place] [address] Performed By: #### 5 7021-8 ####[facility] LABCLIA [id number] [address] LABCLIA [id number] [place] [address] Hemoglobin (Bld) [Mass/Vol] 7.2 g/dL Low 13.0-17.0 [facility] Comment on above: Order Comment: Speci men Type: BLOOD SPECIMENOrdering Facility: [facility] Address: [address] [place] [address] Performed By: #### 5 7021-8 ####[facility] LABCLIA [id number] [address] LABCLIA [id number] [place] [address] Lymphocytes (Bld) [#/Vol] 0.97 10*3/uL Low 1.00-4.00 [facility] Comment on above: Order Comment: Speci men Type: BLOOD SPECIMENOrdering Facility: [facility] Address: [address] [place] [address] Performed By: #### 5 7021-8 ####[facility] LABCLIA [id number] [address] LABCLIA [id number] [place] [address] Lymphocytes/100 WBC (Bld) 43.0 % Normal [facility] Comment on above: Order Comment: Speci men Type: BLOOD SPECIMENOrdering Facility: [facility] Address: [address] [place], [place] [address] Performed By: #### 5 7021-8 ####[facility] LABCLIA [id number] [address] LABCLIA [id number] [place] [address] MCH (RBC) [Entitic mass] 31.3 pg Normal 26.0-34.0 [facility] Comment on above: Order Comment: Speci men Type: BLOOD SPECIMENOrdering Facility: [facility] Address: [address] [place] [address] Performed By: #### 5 7021-8 ####[facility] LABCLIA [id number] [address] LABCLIA [id number] [place] [address] MCHC (RBC) [Mass/Vol] 32.0 g/dL Normal 30.5-36.0 [facility] Comment on above: Order Comment: Speci men Type: BLOOD SPECIMENOrdering Facility: [facility] Address: [address] [place] [address] Performed By: #### 5 7021-8 ####[facility] LABCLIA [id number] [address] LABCLIA [id number] [place] [address] MCV (RBC) [Entitic vol] 97.8 fL Normal 80.0-100.0 [facility] Comment on above: Order Comment: Speci men Type: BLOOD SPECIMENOrdering Facility: [facility] Address: [address] [place] [address] Performed By: #### 5 7021-8 ####[facility] LABCLIA [id number] [address] LABCLIA [id number] [place] [address] Metamyelocytes/100 WBC (Bld) 2.0 % Normal [facility] Comment on above: Order Comment: Speci men Type: BLOOD SPECIMENOrdering Facility: [facility] Address: [address] [place] [address] Performed By: #### 5 7021-8 ####[facility] LABCLIA [id number] [address] LABCLIA [id number] [place] [address] Monocytes (Bld) [#/Vol] 0.25 10*3/uL Normal <0.87 [facility] Comment on above: Order Comment: Speci men Type: BLOOD SPECIMENOrdering Facility: [facility] Address: [address] [place] [address] Performed By: #### 5 7021-8 ####[facility] LABCLIA [id number] [address] LABCLIA [id number] [place] [address] Monocytes/100 WBC (Bld) 11.0 % Normal [facility] Comment on above: Order Comment: Speci men Type: BLOOD SPECIMENOrdering Facility: [facility] Address: [address] [place] [address] Performed By: #### 5 7021-8 ####[facility] LABCLIA [id number] [address] LABCLIA [id number] [place] [address] MYELO% 6.0 % Normal [facility] Comment on above: Order Comment: Speci men Type: BLOOD SPECIMENOrdering Facility: [facility] Address: [address] [place], [place] [address] Performed By: #### 5 7021-8 ####[facility] LABCLIA [id number] [address] LABCLIA [id number] [place] [address] Neutrophils (Bld) [#/Vol] 0.83 10*3/uL Low 1.45-7.50 [facility] Comment on above: Order Comment: Speci men Type: BLOOD SPECIMENOrdering Facility: [facility] Address: [address] [address] Performed By: #### 5 7021-8 ####[facility] LABCLIA [id number] [address] LABCLIA [id number] [place] [address] Neutrophils/100 WBC (Bld) 37.0 % Normal [facility] Comment on above: Order Comment: Speci men Type: BLOOD SPECIMENOrdering Facility: [facility] Address: [address] [place] [address] Performed By: #### 5 7021-8 ####[facility] LABCLIA [id number] [address] LABCLIA [id number] [place] [address] Nucleated RBC (Bld) [#/Vol] 0.02 10*3/uL High <0.01 [facility] Comment on above: Order Comment: Speci men Type: BLOOD SPECIMENOrdering Facility: [facility] Address: [address] [place] [address] Performed By: #### 5 7021-8 ####[facility] LABCLIA [id number] [address] LABCLIA [id number] [place] [address] Nucleated RBC/100 WBC (Bld) [Ratio] 1.0 /100 WBC Normal [facility] Comment on above: Order Comment: Speci men Type: BLOOD SPECIMENOrdering Facility: [facility] Address: [address] [place], [place] [address] Performed By: #### 5 7021-8 ####[facility] LABCLIA [id number] [address] LABCLIA [id number] [place] [address] Ovalocytes LM Ql (Bld) Few Normal [facility] Comment on above: Order Comment: Speci men Type: BLOOD SPECIMENOrdering Facility: [facility] Address: [address] [place] [address] Performed By: #### 5 7021-8 ####[facility] LABCLIA [id number] [address] LABCLIA [id number] [place] [address] Platelet mean volume (Bld) [Entitic vol] Normal [facility] Comment on above: Order Comment: Speci men Type: BLOOD SPECIMENOrdering Facility: [facility] Address: [address] [place] [address] Result Comment: Unab le to report Performed By: #### 5 7021-8 ####[facility] LABCLIA [id number] [address] LABCLIA [id number] [place] [address] Platelets (Bld) [#/Vol] 62 10*3/uL Low 150-400 [facility] Comment on above: Order Comment: Speci men Type: BLOOD SPECIMENOrdering Facility: [facility] Address: [address] [place], [place] [address] Performed By: #### 5 7021-8 ####[facility] LABCLIA [id number] [address] LABIA [id number] [place] [address] Platelets Estimate (Bld) [#/Vol] Decreased Normal [facility] Comment on above: Order Comment: Speci men Type: BLOOD SPECIMENOrdering Facility: [facility] Address: [address] [place] [address] Performed By: #### 5 7021-8 ####[facility] LABCLIA [id number] [address] LABCLIA [id number] [place] [address] Polychromasia LM Ql (Bld) Slight Normal [facility] Comment on above: Order Comment: Speci men Type: BLOOD SPECIMENOrdering Facility: [facility] Address: [address] [place] [address] Performed By: #### 5 7021-8 ####[facility] LABCLIA [id number] [address] LABCLIA [id number] [place] [address] RBC (Bld) [#/Vol] 2.30 10*6/uL Low 4.20-6.00 [facility] Comment on above: Order Comment: Speci men Type: BLOOD SPECIMENOrdering Facility: [facility] Address: [address] [place], [place] [address] Performed By: #### 5 7021-8 ####[facility] LABCLIA [id number] [address] LABCLIA [id number] [place] [address] RED CELL MORPH Reviewed: see result s of individual morphologies Normal [facility] Comment on above: Order Comment: Speci men Type: BLOOD SPECIMENOrdering Facility: [facility] Address: [address] [place] [address] Performed By: #### 5 7021-8 ####[facility] LABCLIA [id number] [address] LABCLIA [id number] [place] [address] WBC (Bld) [#/Vol] 2.25 10*3/uL Low 3.70-11.00 [facility] Comment on above: Order Comment: Speci men Type: BLOOD SPECIMENOrdering Facility: [facility] Address: [address] [place] [address] Result Comment: Resu lts checked and verified.No clot detected. Performed By: #### 5 7021-8 ####[facility] LABCLIA [id number] [address] LABCLIA [id number] [place] [address] WBC Left Shift Ql (Bld) Present Normal [facility] Comment on above: Order Comment: Speci men Type: BLOOD SPECIMENOrdering Facility: [facility] Address: [address] [place] [address] Performed By: #### 5 7021-8 ####[facility] LABCLIA [id number] [address] LABCLIA [id number] [place] [address] CNPNon 09-11-2022 CNPN Normal [facility] Comprehensive metabolic 2000 panelon 09-11-2022 Albumin [Mass/Vol] 3.9 g/dL Normal 3.9-4.9 [facility] Comment on above: Order Comment: Speci men Type: BLOOD SPECIMENOrdering Facility: [facility] Address: [address] [place] [address] Performed By: #### 2 4323-8 ####[facility] LABIA [id number] [place] [address] ALP [Catalytic activity/Vol] 148 U/L High 38-113 [facility] Comment on above: Order Comment: Speci men Type: BLOOD SPECIMENOrdering Facility: [facility] Address: [address] [place] [address] Performed By: #### 2 4323-8 ####[facility] LABCLIA [id number] [place] [address] ALT [Catalytic activity/Vol] 48 U/L Normal 10-54 [facility] Comment on above: Order Comment: Speci men Type: BLOOD SPECIMENOrdering Facility: [facility] Address: [address] [place] [address] Performed By: #### 2 4323-8 ####[facility] LABCLIA [id number] [place] [address] Anion gap [Moles/Vol] 11 mmol/L Normal 9-18 [facility] Comment on above: Order Comment: Speci men Type: BLOOD SPECIMENOrdering Facility: [facility] Address: [address] [place] [address] Performed By: #### 2 4323-8 ####[facility] LABCLIA [id number] [place] [address] AST [Catalytic activity/Vol] 28 U/L Normal 14-40 [facility] Comment on above: Order Comment: Speci men Type: BLOOD SPECIMENOrdering Facility: [facility] Address: [address] [place] [address] Performed By: #### 2 4323-8 ####[facility] LABCLIA [id number] [place] [address] Bilirubin [Mass/Vol] 1.2 mg/dL Normal 0.2-1.3 [facility] Comment on above: Order Comment: Speci men Type: BLOOD SPECIMENOrdering Facility: [facility] Address: [address] [place] [address] Performed By: #### 2 4323-8 ####[facility] LABCLIA [id number] [place] [address] Calcium [Mass/Vol] 9.3 mg/dL Normal 8.5-10.2 [facility] Comment on above: Order Comment: Speci men Type: BLOOD SPECIMENOrdering Facility: [facility] Address: [address] [address] Performed By: #### 2 4323-8 ####[facility] LABCLIA [id number] [place] [address] Chloride [Moles/Vol] 97 mmol/L Normal 97-105 [facility] Comment on above: Order Comment: Speci men Type: BLOOD SPECIMENOrdering Facility: [facility] Address: [address] [place] [address] Performed By: #### 2 4323-8 ####[facility] LABCLIA [id number] [place] [address] CO2 [Moles/Vol] 32 mmol/L High 22-30 [facility] Comment on above: Order Comment: Speci men Type: BLOOD SPECIMENOrdering Facility: [facility] Address: [address] [place] [address] Performed By: #### 2 4323-8 ####[facility] LABCLIA [id number] [place] [address] Creatinine [Mass/Vol] 1.34 mg/dL High 0.73-1.22 [facility] Comment on above: Order Comment: Speci men Type: BLOOD SPECIMENOrdering Facility: [facility] Address: [address] [place] [address] Performed By: #### 2 4323-8 ####[facility] LABCLIA [id number] [place] [address] ESTIMATED GLOMERULAR FILTRATION RATE 53 mL/min/1.73m??? Low >=60 [facility] Comment on above: Order Comment: Speci men Type: BLOOD SPECIMENOrdering Facility: [facility] Address: [address] [place] [address] Result Comment: Faye mated Glomerular Filtration Rate [...] actual GFR. Performed By: #### 2 4323-8 ####[facility] LABCLIA [id number] [place] [address] Glucose [Mass/Vol] 205 mg/dL High 74-99 [facility] Comment on above: Order Comment: Davi avendaño Type: BLOOD SPECIMENOrdering Facility: [facility] Address: [address] [id number] Result Comment: The [place] [employer] (ADA) provides guidance for cutoff [...] Standards of Medical Care in Diabetes 2016, [place] [employer]. Diabetes Care. 2016.39(Suppl 1). Performed By: #### 2 4323-8 ####[facility] LABCLIA [id number] [place] [address] Potassium [Moles/Vol] 3.5 mmol/L Low 3.7-5.1 [facility] Comment on above: Order Comment: Davi avendaño Type: BLOOD SPECIMENOrdering Facility: [facility] Address: [address] [place] [address] Performed By: #### 2 4323-8 ####[facility] LABCLIA [id number] [place] [address] Protein [Mass/Vol] 6.3 g/dL Normal 6.3-8.0 [facility] Comment on above: Order Comment: Davi avendaño Type: BLOOD SPECIMENOrdering Facility: [facility] Address: [address] [address] Performed By: #### 2 4323-8 ####[facility] LABCLIA [id number] [place] [address] Sodium [Moles/Vol] 140 mmol/L Normal 136-144 [facility] Comment on above: Order Comment: Speci men Type: BLOOD SPECIMENOrdering Facility: [facility] Address: [address] [address] Performed By: #### 2 4323-8 ####[facility] LABCLIA [id number] [place] [address] Urea nitrogen [Mass/Vol] 25 mg/dL High 9-24 [facility] Comment on above: Order Comment: Speci men Type: BLOOD SPECIMENOrdering Facility: [facility] Address: [address] [address] Performed By: #### 2 4323-8 ####[facility] LABCLIA [id number] [place] [address] HEMOGRAM AND PLATELon 2022 Hematocrit (Bld) [Volume fraction] 22.3 % Critically low 42.0-54.0 [facility] Comment on above: Performed By: #### H H #### [facility] [address] [place] [address] Dr. Benito To Hemoglobin (Bld) [Mass/Vol] 7.3 g/dL Critically low 14.0-18.0 [facility] Comment on above: Performed By: #### H H #### [facility] [address] [address] [address] Benito To MCH (RBC) [Entitic mass] 32.0 pg Normal 25.9-34.0 [facility] Comment on above: Performed By: #### H H #### [facility] [address] [place] [address] Dr. Benito To MCHC (RBC) [Mass/Vol] 32.7 g/dL Normal 29.9-35.2 [facility] Comment on above: Performed By: #### H H #### [facility] [address] [address] [address] Benito To MCV (RBC) [Entitic vol] 97.8 fL Critically high 80.0-94.0 [facility] Comment on above: Performed By: #### H H #### [facility] [address] [address] [address] Benito To PLT 49 103/ul Critically low 150-450 [facility] Comment on above: Performed By: #### H H #### [facility] [address] [address] [address] Benito To RBC 2.28 106/ul Critically low 4.70-6.10 [facility] Comment on above: Performed By: #### H H #### [facility] [address] [place] [address] Dr. Benito To WBC 2.4 103/ul Critically low 4.0-11.0 [facility] Comment on above: Performed By: #### H H #### [facility] [address] [place] [address] Dr. Benito To TYPE AND SCREENon 09-11-2022 TYPE AND SCREEN Negative Normal [facility] Comment on above: Performed By: #### P RBC, TNS #### [facility] [address] [place] [address] Dr. Benito To HEMOGLOBIN AND HEMATOCRITon 09-05-2022 Hematocrit (Bld) [Volume fraction] 20.7 % Critically low 42.0-54.0 [facility] Comment on above: Performed By: #### T NS, PRBC #### [facility] [address] [place] [address] Dr. Benito To Hemoglobin (Bld) [Mass/Vol] 6.8 g/dL Critically low 14.0-18.0 [facility] Comment on above: Performed By: #### T NS, PRBC #### [facility] [address] [place] [address] Dr. Benito To TYPE AND SCREENon 09-05-2022 TYPE AND SCREEN Negative Normal [facility] Comment on above: Performed By: #### T NS, PRBC #### [facility] [address] [place], [place] [address] Dr. Benito To CBC W Auto Differential pane l (Bld)on 09-04-2022 Anisocytosis Ql (Bld) Present Normal [facility] Comment on above: Order Comment: Speci men Type: BLOOD SPECIMENOrdering Facility: [facility] Address: [address] [place] [address] Performed By: #### 5 7021-8 ####[facility] LABCLIA [id number] [address] LABCLIA [id number] [place] [address] Basophils (Bld) [#/Vol] 0.09 10*3/uL Normal <0.11 [facility] Comment on above: Order Comment: Speci men Type: BLOOD SPECIMENOrdering Facility: [facility] Address: [address] [place], [place] [address] Performed By: #### 5 7021-8 ####[facility] LABCLIA [id number] [address] LABCLIA [id number] [place] [address] Basophils/100 WBC (Bld) 3.0 % Normal [facility] Comment on above: Order Comment: Speci men Type: BLOOD SPECIMENOrdering Facility: [facility] Address: [address] Performed By: #### 5 7021-8 ####[facility] LABCLIA [id number] [address] LABCLIA [id number] [place] [address] Eosinophils (Bld) [#/Vol] 0.03 10*3/uL Normal <0.46 [facility] Comment on above: Order Comment: Speci men Type: BLOOD SPECIMENOrdering Facility: [facility] Address: [address] [place] [address] Performed By: #### 5 7021-8 ####[facility] LABCLIA [id number] [address] LABCLIA [id number] [place] [address] Eosinophils/100 WBC (Bld) 1.0 % Normal [facility] Comment on above: Order Comment: Speci men Type: BLOOD SPECIMENOrdering Facility: [facility] Address: [address] [place] [address] Performed By: #### 5 7021-8 ####[facility] LABCLIA [id number] [address] LABCLIA [id number] [place] [address] Erythrocyte distribution width (RBC) [Ratio] 15.7 % High 11.5-15.0 [facility] Comment on above: Order Comment: Speci men Type: BLOOD SPECIMENOrdering Facility: [facility] Address: [address] [place] [address] Performed By: #### 5 7021-8 ####[facility] LABCLIA [id number] [address] LABCLIA [id number] [place] [address] Hematocrit (Bld) [Volume fraction] 21.8 % Low 39.0-51.0 [facility] Comment on above: Order Comment: Speci men Type: BLOOD SPECIMENOrdering Facility: [facility] Address: [address] [place] [address] Performed By: #### 5 7021-8 ####[facility] LABCLIA [id number] [address] LABCLIA [id number] [place] [address] Hemoglobin (Bld) [Mass/Vol] 6.9 g/dL Low 13.0-17.0 [facility] Comment on above: Order Comment: Speci men Type: BLOOD SPECIMENOrdering Facility: [facility] Address: [address] [place] [address] Performed By: #### 5 7021-8 ####[facility] LABCLIA [id number] [address] LABCLIA [id number] [place] [address] Lymphocytes (Bld) [#/Vol] 1.08 10*3/uL Normal 1.00-4.00 [facility] Comment on above: Order Comment: Speci men Type: BLOOD SPECIMENOrdering Facility: [facility] Address: [address] [place] [address] Performed By: #### 5 7021-8 ####[facility] LABCLIA [id number] [address] LABCLIA [id number] [place] [address] Lymphocytes/100 WBC (Bld) 37.0 % Normal [facility] Comment on above: Order Comment: Speci men Type: BLOOD SPECIMENOrdering Facility: [facility] Address: [address] [place], [place] [address] Performed By: #### 5 7021-8 ####[facility] LABCLIA [id number] [address] LABCLIA [id number] [place] [address] MCH (RBC) [Entitic mass] 30.5 pg Normal 26.0-34.0 [facility] Comment on above: Order Comment: Speci men Type: BLOOD SPECIMENOrdering Facility: [facility] Address: [address] [place] [address] Performed By: #### 5 7021-8 ####[facility] LABCLIA [id number] [address] LABCLIA [id number] [place] [address] MCHC (RBC) [Mass/Vol] 31.7 g/dL Normal 30.5-36.0 [facility] Comment on above: Order Comment: Speci men Type: BLOOD SPECIMENOrdering Facility: [facility] Address: [address] [place] [address] Performed By: #### 5 7021-8 ####[facility] LABCLIA [id number] [address] LABCLIA [id number] [place] [address] MCV (RBC) [Entitic vol] 96.5 fL Normal 80.0-100.0 [facility] Comment on above: Order Comment: Speci men Type: BLOOD SPECIMENOrdering Facility: [facility] Address: [address] [place] [address] Performed By: #### 5 7021-8 ####[facility] LABCLIA [id number] [address] LABCLIA [id number] [place] [address] Metamyelocytes/100 WBC (Bld) 4.0 % Normal [facility] Comment on above: Order Comment: Speci men Type: BLOOD SPECIMENOrdering Facility: [facility] Address: [address] [place] [address] Performed By: #### 5 7021-8 ####[facility] LABCLIA [id number] [address] LABCLIA [id number] [place] [address] Monocytes (Bld) [#/Vol] 0.44 10*3/uL Normal <0.87 [facility] Comment on above: Order Comment: Speci men Type: BLOOD SPECIMENOrdering Facility: [facility] Address: [address] [place] [address] Performed By: #### 5 7021-8 ####[facility] LABCLIA [id number] [address] LABCLIA [id number] [place] [address] Monocytes/100 WBC (Bld) 15.0 % Normal [facility] Comment on above: Order Comment: Speci men Type: BLOOD SPECIMENOrdering Facility: [facility] Address: [address] [place] [address] Performed By: #### 5 7021-8 ####[facility] LABCLIA [id number] [address] LABCLIA [id number] [place] [address] Neutrophils (Bld) [#/Vol] 1.17 10*3/uL Low 1.45-7.50 [facility] Comment on above: Order Comment: Speci men Type: BLOOD SPECIMENOrdering Facility: [facility] Address: [address] [place] [address] Performed By: #### 5 7021-8 ####[facility] LABCLIA [id number] [address] LABCLIA [id number] [place] [address] Neutrophils/100 WBC (Bld) 40.0 % Normal [facility] Comment on above: Order Comment: Speci men Type: BLOOD SPECIMENOrdering Facility: [facility] Address: [address] [place], [place] [address] Performed By: #### 5 7021-8 ####[facility] LABCLIA [id number] [address] LABCLIA [id number] [place] [address] Nucleated RBC (Bld) [#/Vol] 0.06 10*3/uL High <0.01 [facility] Comment on above: Order Comment: Speci men Type: BLOOD SPECIMENOrdering Facility: [facility] Address: [address] [place] [address] Performed By: #### 5 7021-8 ####[facility] LABCLIA [id number] [address] LABCLIA [id number] [place] [address] Nucleated RBC/100 WBC (Bld) [Ratio] 2.0 /100 WBC Normal [facility] Comment on above: Order Comment: Speci men Type: BLOOD SPECIMENOrdering Facility: [facility] Address: [address] [place] [address] Performed By: #### 5 7021-8 ####[facility] LABCLIA [id number] [address] LABCLIA [id number] [place] [address] Ovalocytes LM Ql (Bld) Few Normal [facility] Comment on above: Order Comment: Speci men Type: BLOOD SPECIMENOrdering Facility: [facility] Address: [address] [place], [place] [address] Performed By: #### 5 7021-8 ####[facility] LABCLIA [id number] [address] LABCLIA [id number] [place] [address] Platelet mean volume (Bld) [Entitic vol] Normal [facility] Comment on above: Order Comment: Speci men Type: BLOOD SPECIMENOrdering Facility: [facility] Address: [address] [place] [address] Result Comment: Unab le to report Performed By: #### 5 7021-8 ####[facility] LABCLIA [id number] [place] [id number] [facility] LABCLIA [id number] [place] [address] Platelets (Bld) [#/Vol] 55 10*3/uL Low 150-400 [facility] Comment on above: Order Comment: Speci men Type: BLOOD SPECIMENOrdering Facility: [facility] Address: [address] [place] [address] Performed By: #### 5 7021-8 ####[facility] LABCLIA [id number] [address] LABCLIA [id number] [place] [address] Platelets Estimate (Bld) [#/Vol] Decreased Normal [facility] Comment on above: Order Comment: Speci men Type: BLOOD SPECIMENOrdering Facility: [facility] Address: [address] [place] [address] Performed By: #### 5 7021-8 ####[facility] LABCLIA [id number] [address] LABCLIA [id number] [place] [address] Polychromasia LM Ql (Bld) Slight Normal [facility] Comment on above: Order Comment: Speci men Type: BLOOD SPECIMENOrdering Facility: [facility] Address: [address] [place] [address] Performed By: #### 5 7021-8 ####[facility] LABCLIA [id number] [address] LABCLIA [id number] [place] [address] RBC (Bld) [#/Vol] 2.26 10*6/uL Low 4.20-6.00 [facility] Comment on above: Order Comment: Speci men Type: BLOOD SPECIMENOrdering Facility: [facility] Address: [address] [address] Performed By: #### 5 7021-8 ####[facility] LABCLIA [id number] [address] LABCLIA [id number] [place] [address] RED CELL MORPH Reviewed: see result s of individual morphologies Normal [facility] Comment on above: Order Comment: Speci men Type: BLOOD SPECIMENOrdering Facility: [facility] Address: [address] [place] [address] Performed By: #### 5 7021-8 ####[facility] LABCLIA [id number] [address] LABCLIA [id number] [place] [address] WBC (Bld) [#/Vol] 2.93 10*3/uL Low 3.70-11.00 [facility] Comment on above: Order Comment: Speci men Type: BLOOD SPECIMENOrdering Facility: [facility] Address: [address] Result Comment: Chec ked and Verified No clot detected. Performed By: #### 5 7021-8 ####[facility] LABCLIA [id number] [address] LABCLIA [id number] [place] [address] WBC Left Shift Ql (Bld) Present Normal [facility] Comment on above: Order Comment: Speci men Type: BLOOD SPECIMENOrdering Facility: [facility] Address: [address] [place] [address] Performed By: #### 5 7021-8 ####[facility] LABCLIA [id number] [facility] [id number] LABCLIA [id number] [place] [address] CNPNon 09-04-2022 CNPN Normal [facility] Comprehensive metabolic 2000 panelon 09-04-2022 Albumin [Mass/Vol] 3.9 g/dL Normal 3.9-4.9 [facility] Comment on above: Order Comment: Speci men Type: BLOOD SPECIMENOrdering Facility: [facility] Address: [address] [place] [address] Performed By: #### 2 4323-8 ####[facility] LABCLIA [id number] [place] [address] ALP [Catalytic activity/Vol] 157 U/L High 38-113 [facility] Comment on above: Order Comment: Speci men Type: BLOOD SPECIMENOrdering Facility: [facility] Address: [address] [place] [address] Performed By: #### 2 4323-8 ####[facility] LABCLIA [id number] [place] [address] ALT [Catalytic activity/Vol] 53 U/L Normal 10-54 [facility] Comment on above: Order Comment: Speci men Type: BLOOD SPECIMENOrdering Facility: [facility] Address: [address] [place] [address] Performed By: #### 2 4323-8 ####[facility] LABCLIA [id number] [place] [address] Anion gap [Moles/Vol] 11 mmol/L Normal 9-18 [facility] Comment on above: Order Comment: Speci men Type: BLOOD SPECIMENOrdering Facility: [facility] Address: [address] [address] Performed By: #### 2 4323-8 ####[facility] LABCLIA [id number] [place] [address] AST [Catalytic activity/Vol] 29 U/L Normal 14-40 [facility] Comment on above: Order Comment: Speci men Type: BLOOD SPECIMENOrdering Facility: [facility] Address: [address] [place] [address] Performed By: #### 2 4323-8 ####[facility] LABCLIA [id number] [place] [address] Bilirubin [Mass/Vol] 1.2 mg/dL Normal 0.2-1.3 [facility] Comment on above: Order Comment: Speci men Type: BLOOD SPECIMENOrdering Facility: [facility] Address: [address] [place] [address] Performed By: #### 2 4323-8 ####[facility] LABCLIA [id number] [place] [address] Calcium [Mass/Vol] 9.4 mg/dL Normal 8.5-10.2 [facility] Comment on above: Order Comment: Speci men Type: BLOOD SPECIMENOrdering Facility: [facility] Address: [address] [place] [place] [address] Performed By: #### 2 4323-8 ####[facility] LABCLIA [id number] [place] [address] Chloride [Moles/Vol] 97 mmol/L Normal 97-105 [facility] Comment on above: Order Comment: Speci men Type: BLOOD SPECIMENOrdering Facility: [facility] Address: [address] [place] [place] [address] Performed By: #### 2 4323-8 ####[facility] LABCLIA [id number] [place] [address] CO2 [Moles/Vol] 33 mmol/L High 22-30 [facility] Comment on above: Order Comment: Speci men Type: BLOOD SPECIMENOrdering Facility: [facility] Address: [address] [place] [address] Performed By: #### 2 4323-8 ####[facility] LABCLIA [id number] [place] [address] Creatinine [Mass/Vol] 1.40 mg/dL High 0.73-1.22 [facility] Comment on above: Order Comment: Speci men Type: BLOOD SPECIMENOrdering Facility: [facility] Address: [address] [place] [address] Performed By: #### 2 4323-8 ####[facility] LABCLIA [id number] [place] [address] ESTIMATED GLOMERULAR FILTRATION RATE 50 mL/min/1.73m??? Low >=60 [facility] Comment on above: Order Comment: Speci men Type: BLOOD SPECIMENOrdering Facility: [facility] Address: [address] [place] [address] Result Comment: Faye mated Glomerular Filtration Rate [...] actual GFR. Performed By: #### 2 4323-8 ####[facility] LABCLIA [id number] [place] [address] Glucose [Mass/Vol] 152 mg/dL High 74-99 [facility] Comment on above: Order Comment: Speci men Type: BLOOD SPECIMENOrdering Facility: [facility] Address: [address] [place], [place] [address] Result Comment: The [place] [employer] (ADA) provides guidance for cutoff [...] Standards of Medical Care in Diabetes 2016, [place] [employer]. Diabetes Care. 2016.39(Suppl 1). Performed By: #### 2 4323-8 ####[facility] LABCLIA [id number] [place] [address] Potassium [Moles/Vol] 3.7 mmol/L Normal 3.7-5.1 [facility] Comment on above: Order Comment: Speci men Type: BLOOD SPECIMENOrdering Facility: [facility] Address: [address] [place] [address] Performed By: #### 2 4323-8 ####[facility] LABCLIA [id number] [place] [address] Protein [Mass/Vol] 6.5 g/dL Normal 6.3-8.0 [facility] Comment on above: Order Comment: Speci men Type: BLOOD SPECIMENOrdering Facility: [facility] Address: [address] [place] [address] Performed By: #### 2 4323-8 ####[facility] LABCLIA [id number] [place] [address] Sodium [Moles/Vol] 141 mmol/L Normal 136-144 [facility] Comment on above: Order Comment: Speci men Type: BLOOD SPECIMENOrdering Facility: [facility] Address: [address] [place] [address] Performed By: #### 2 4323-8 ####[facility] LABCLIA [id number] [place] [address] Urea nitrogen [Mass/Vol] 22 mg/dL Normal 9-24 [facility] Comment on above: Order Comment: Speci men Type: BLOOD SPECIMENOrdering Facility: [facility] Address: [address] [place] [address] Performed By: #### 2 4323-8 ####[facility] LABCLIA [id number] [place] [address] CBC W Auto Differential pane l (Bld)on 08-28-2022 Basophils (Bld) [#/Vol] 10*3/uL Normal <0.11 [facility] Comment on above: Order Comment: Speci men Type: BLOOD SPECIMENOrdering Facility: [facility] Address: [address] [place] [address] Performed By: #### 5 7021-8 ####[facility] LABCLIA [id number] [place] [address] Basophils/100 WBC (Bld) 1.0 % Normal [facility] Comment on above: Order Comment: Speci men Type: BLOOD SPECIMENOrdering Facility: [facility] Address: [address] [place] [address] Performed By: #### 5 7021-8 ####[facility] LABCLIA [id number] [place] [address] Differential cell count method Nom (Bld) Auto Normal [facility] Comment on above: Order Comment: Speci men Type: BLOOD SPECIMENOrdering Facility: [facility] Address: [address] [place] [address] Performed By: #### 5 7021-8 ####[facility] LABCLIA [id number] [place] [address] Eosinophils (Bld) [#/Vol] 10*3/uL Normal <0.46 [facility] Comment on above: Order Comment: Speci men Type: BLOOD SPECIMENOrdering Facility: [facility] Address: [address] [place] [address] Performed By: #### 5 7021-8 ####[facility] LABCLIA [id number] [place] [address] Eosinophils/100 WBC (Bld) 0.5 % Normal [facility] Comment on above: Order Comment: Speci men Type: BLOOD SPECIMENOrdering Facility: [facility] Address: [address] [place] [address] Performed By: #### 5 7021-8 ####[facility] LABCLIA [id number] [place] [address] Erythrocyte distribution width (RBC) [Ratio] 15.9 % High 11.5-15.0 [facility] Comment on above: Order Comment: Speci men Type: BLOOD SPECIMENOrdering Facility: [facility] Address: [address] [place] [address] Performed By: #### 5 7021-8 ####[facility] LABCLIA [id number] [place] [address] Hematocrit (Bld) [Volume fraction] 25.6 % Low 39.0-51.0 [facility] Comment on above: Order Comment: Speci men Type: BLOOD SPECIMENOrdering Facility: [facility] Address: [address] [place] [address] Performed By: #### 5 7021-8 ####[facility] LABCLIA [id number] [place] [address] Hemoglobin (Bld) [Mass/Vol] 8.1 g/dL Low 13.0-17.0 [facility] Comment on above: Order Comment: Speci men Type: BLOOD SPECIMENOrdering Facility: [facility] Address: [address] [place] [address] Performed By: #### 5 7021-8 ####[facility] LABCLIA [id number] [place] [address] Immature granulocytes (Bld) [#/Vol] 0.03 10*3/uL Normal <0.10 [facility] Comment on above: Order Comment: Speci men Type: BLOOD SPECIMENOrdering Facility: [facility] Address: [address] [address] Performed By: #### 5 7021-8 ####[facility] LABCLIA [id number] [place] [address] Immature granulocytes/100 WBC (Bld) 1.5 % Normal [facility] Comment on above: Order Comment: Speci men Type: BLOOD SPECIMENOrdering Facility: [facility] Address: [address] [place] [address] Performed By: #### 5 7021-8 ####[facility] LABCLIA [id number] [place] [address] Lymphocytes (Bld) [#/Vol] 0.59 10*3/uL Low 1.00-4.00 [facility] Comment on above: Order Comment: Speci men Type: BLOOD SPECIMENOrdering Facility: [facility] Address: [address] [place] [address] Performed By: #### 5 7021-8 ####[facility] LABCLIA [id number] [place] [address] Lymphocytes/100 WBC (Bld) 28.8 % Normal [facility] Comment on above: Order Comment: Speci men Type: BLOOD SPECIMENOrdering Facility: [facility] Address: [address] [place] [address] Performed By: #### 5 7021-8 ####[facility] LABCLIA [id number] [place] [address] MCH (RBC) [Entitic mass] 30.2 pg Normal 26.0-34.0 [facility] Comment on above: Order Comment: Speci men Type: BLOOD SPECIMENOrdering Facility: [facility] Address: [address] [place] [address] Performed By: #### 5 7021-8 ####[facility] LABCLIA [id number] [place] [address] MCHC (RBC) [Mass/Vol] 31.6 g/dL Normal 30.5-36.0 [facility] Comment on above: Order Comment: Speci men Type: BLOOD SPECIMENOrdering Facility: [facility] Address: [address] [place] [address] Performed By: #### 5 7021-8 ####[facility] LABCLIA [id number] [place] [address] MCV (RBC) [Entitic vol] 95.5 fL Normal 80.0-100.0 [facility] Comment on above: Order Comment: Speci men Type: BLOOD SPECIMENOrdering Facility: [facility] Address: [address] [place] [address] Performed By: #### 5 7021-8 ####[facility] LABIA [id number] [place] [address] Monocytes (Bld) [#/Vol] 0.26 10*3/uL Normal <0.87 [facility] Comment on above: Order Comment: Speci men Type: BLOOD SPECIMENOrdering Facility: [facility] Address: [address] [place] [address] Performed By: #### 5 7021-8 ####[facility] LABCLIA [id number] [place] [address] Monocytes/100 WBC (Bld) 12.7 % Normal [facility] Comment on above: Order Comment: Speci men Type: BLOOD SPECIMENOrdering Facility: [facility] Address: [address] [place] [address] Performed By: #### 5 7021-8 ####[facility] LABCLIA [id number] [place] [address] Neutrophils (Bld) [#/Vol] 1.14 10*3/uL Low 1.45-7.50 [facility] Comment on above: Order Comment: Speci men Type: BLOOD SPECIMENOrdering Facility: [facility] Address: [address] [place] [address] Performed By: #### 5 7021-8 ####[facility] LABCLIA [id number] [place] [address] Neutrophils/100 WBC (Bld) 55.5 % Normal [facility] Comment on above: Order Comment: Speci men Type: BLOOD SPECIMENOrdering Facility: [facility] Address: [address] [place] [address] Performed By: #### 5 7021-8 ####[facility] LABCLIA [id number] [place] [address] Nucleated RBC (Bld) [#/Vol] 10*3/uL Normal <0.01 [facility] Comment on above: Order Comment: Speci men Type: BLOOD SPECIMENOrdering Facility: [facility] Address: [address] [place] [address] Performed By: #### 5 7021-8 ####[facility] LABCLIA [id number] [place] [address] Nucleated RBC/100 WBC (Bld) [Ratio] 0.0 /100 WBC Normal [facility] Comment on above: Order Comment: Speci men Type: BLOOD SPECIMENOrdering Facility: [facility] Address: [address] [place] [address] Performed By: #### 5 7021-8 ####[facility] LABIA [id number] [place] [address] Platelet mean volume (Bld) [Entitic vol] 14.7 fL High 9.0-12.7 [facility] Comment on above: Order Comment: Speci men Type: BLOOD SPECIMENOrdering Facility: [facility] Address: [address] [place] [address] Performed By: #### 5 7021-8 ####[facility] LABCLIA [id number] [place] [address] Platelets (Bld) [#/Vol] 43 10*3/uL Low 150-400 [facility] Comment on above: Order Comment: Speci men Type: BLOOD SPECIMENOrdering Facility: [facility] Address: [address] [place] [address] Result Comment: Resu lts checked and verified.No clot detected. Performed By: #### 5 7021-8 ####[facility] LABCLIA [id number] [place] [address] RBC (Bld) [#/Vol] 2.68 10*6/uL Low 4.20-6.00 [facility] Comment on above: Order Comment: Speci men Type: BLOOD SPECIMENOrdering Facility: [facility] Address: [address] [place] [address] Performed By: #### 5 7021-8 ####[facility] LABIA [id number] [place] [address] WBC (Bld) [#/Vol] 2.05 10*3/uL Low 3.70-11.00 [facility] Comment on above: Order Comment: Speci men Type: BLOOD SPECIMENOrdering Facility: [facility] Address: [address] [place] [address] Performed By: #### 5 7021-8 ####[facility] LABIA [id number] [place] [address] CNOVSPon 08-28-2022 CNOVSP Normal [facility] Comprehensive metabolic 2000 panelon 08-28-2022 Albumin [Mass/Vol] 3.8 g/dL Low 3.9-4.9 [facility] Comment on above: Order Comment: Speci men Type: BLOOD SPECIMENOrdering Facility: [facility] Address: [address] [place] [address] Performed By: #### 2 4323-8 ####[facility] LABCLIA [id number] [place] [address] ALP [Catalytic activity/Vol] 158 U/L High 38-113 [facility] Comment on above: Order Comment: Speci men Type: BLOOD SPECIMENOrdering Facility: [facility] Address: [address] [place] [address] Performed By: #### 2 4323-8 ####[facility] LABCLIA [id number] [place] [address] ALT [Catalytic activity/Vol] 53 U/L Normal 10-54 [facility] Comment on above: Order Comment: Speci men Type: BLOOD SPECIMENOrdering Facility: [facility] Address: [address] [place] [address] Performed By: #### 2 4323-8 ####[facility] LABCLIA [id number] [place] [address] Anion gap [Moles/Vol] 9 mmol/L Normal 9-18 [facility] Comment on above: Order Comment: Speci men Type: BLOOD SPECIMENOrdering Facility: [facility] Address: [address] [place] [address] Performed By: #### 2 4323-8 ####[facility] LABCLIA [id number] [place] [address] AST [Catalytic activity/Vol] 27 U/L Normal 14-40 [facility] Comment on above: Order Comment: Speci men Type: BLOOD SPECIMENOrdering Facility: [facility] Address: [address] [place] [address] Performed By: #### 2 4323-8 ####[facility] LABCLIA [id number] [place] [address] Bilirubin [Mass/Vol] 1.0 mg/dL Normal 0.2-1.3 [facility] Comment on above: Order Comment: Speci men Type: BLOOD SPECIMENOrdering Facility: [facility] Address: [address] [address] Performed By: #### 2 4323-8 ####[facility] LABCLIA [id number] [place] [address] Calcium [Mass/Vol] 9.1 mg/dL Normal 8.5-10.2 [facility] Comment on above: Order Comment: Speci men Type: BLOOD SPECIMENOrdering Facility: [facility] Address: [address] [address] Performed By: #### 2 4323-8 ####[facility] LABCLIA [id number] [place] [address] Chloride [Moles/Vol] 102 mmol/L Normal 97-105 [facility] Comment on above: Order Comment: Speci men Type: BLOOD SPECIMENOrdering Facility: [facility] Address: [address] [address] Performed By: #### 2 4323-8 ####[facility] LABCLIA [id number] [place] [address] CO2 [Moles/Vol] 34 mmol/L High 22-30 [facility] Comment on above: Order Comment: Speci men Type: BLOOD SPECIMENOrdering Facility: [facility] Address: [address] [address] Performed By: #### 2 4323-8 ####[facility] LABCLIA [id number] [place] [address] Creatinine [Mass/Vol] 1.47 mg/dL High 0.73-1.22 [facility] Comment on above: Order Comment: Speci men Type: BLOOD SPECIMENOrdering Facility: [facility] Address: [address] [place] [address] Performed By: #### 2 4323-8 ####[facility] LABCLIA [id number] [place] [id number] ESTIMATED GLOMERULAR FILTRATION RATE 47 mL/min/1.73m??? Low >=60 [facility] Comment on above: Order Comment: Davi avendaño Type: BLOOD SPECIMENOrdering Facility: [facility] Address: [address] [place] [id number] Result Comment: Faye mated Glomerular Filtration Rate [...] actual GFR. Performed By: #### 2 4323-8 ####[facility] LABCLIA [id number] [place] [address] Glucose [Mass/Vol] 126 mg/dL High 74-99 [facility] Comment on above: Order Comment: Davi avendaño Type: BLOOD SPECIMENOrdering Facility: [facility] Address: [address] [phone] Result Comment: The [place] Diabetes Association (ADA) provides guidance for cutoff [...] Standards of Medical Care in Diabetes 2016, [place] [employer]. Diabetes Care. 2016.39(Suppl 1). Performed By: #### 2 4323-8 ####[facility] LABCLIA [id number] [place] [address] Potassium [Moles/Vol] 3.5 mmol/L Low 3.7-5.1 [facility] Comment on above: Order Comment: Davi avendaño Type: BLOOD SPECIMENOrdering Facility: [facility] Address: [address] [place] [address] Performed By: #### 2 4323-8 ####[facility] LABCLIA [id number] [place] [address] Protein [Mass/Vol] 6.5 g/dL Normal 6.3-8.0 [facility] Comment on above: Order Comment: Speci men Type: BLOOD SPECIMENOrdering Facility: [facility] Address: [address] [address] Performed By: #### 2 4323-8 ####[facility] LABCLIA [id number] [place] [address] Sodium [Moles/Vol] 145 mmol/L High 136-144 [facility] Comment on above: Order Comment: Speci men Type: BLOOD SPECIMENOrdering Facility: [facility] Address: [address] [address] Performed By: #### 2 4323-8 ####[facility] LABCLIA [id number] [place] [address] Urea nitrogen [Mass/Vol] 23 mg/dL Normal 9-24 [facility] Comment on above: Order Comment: Speci men Type: BLOOD SPECIMENOrdering Facility: [facility] Address: [address] [address] Performed By: #### 2 4323-8 ####[facility] LABCLIA [id number] [place] [address] CNPNon 08-26-2022 CNPN Normal [facility] PRBC LEUKOREDUCEDon 08-24-19 ABO and Rh group Nom (Bld) Cross Match Result Compatible Unit Blood Type O Pos Unit Number [id number] Status Information Transfused Product ID Red Blood Cells Product Code [id number] Cross Match Result Compatible Unit Blood Type O Pos Unit Number [id number] Status Information Transfused Product ID Red Blood Cells Product Code [id number] Normal [facility] Comment on above: Performed By: #### T NS, PRBC #### [facility] [id number] Benito To ABO and Rh group Nom (Bld) Cross Match Result Compatible Unit Blood Type A Pos Unit Number [id number] Status Information Transfused Product ID Red Blood Cells Product Code [id number] Cross Match Result Compatible Unit Blood Type A Pos Unit Number [id number] Status Information Transfused Product ID Red Blood Cells Product Code [id number] Normal [facility] Comment on above: Performed By: #### P RBC, TNS #### [facility] [address] [place], [place] [address] Dr. Benito To CNPNon 08-22-2022 CNPN Normal [facility] CBC W Auto Differential pane l (Bld)on 08-21-2022 Anisocytosis Ql (Bld) Present Normal [facility] Comment on above: Order Comment: Speci men Type: BLOOD SPECIMENOrdering Facility: [facility] Address: [address] [place] [address] Performed By: #### 5 7021-8 ####[facility] LABCLIA [id number] [address] LABCLIA [id number] [place] [address] Basophils (Bld) [#/Vol] 0.06 10*3/uL Normal <0.11 [facility] Comment on above: Order Comment: Speci men Type: BLOOD SPECIMENOrdering Facility: [facility] Address: [address] [place] [address] Performed By: #### 5 7021-8 ####[facility] LABCLIA [id number] [address] LABIA [id number] [place] [address] Basophils/100 WBC (Bld) 3.0 % Normal [facility] Comment on above: Order Comment: Speci men Type: BLOOD SPECIMENOrdering Facility: [facility] Address: [address] [place] [address] Performed By: #### 5 7021-8 ####[facility] LABCLIA [id number] [place] [address] [facility] LABCLIA [id number] [place] [address] DYSPLASTIC PMNS Occasional Normal [facility] Comment on above: Order Comment: Speci men Type: BLOOD SPECIMENOrdering Facility: [facility] Address: [address] Performed By: #### 5 7021-8 ####[facility] LABCLIA [id number] [address] LABCLIA [id number] [place] [address] Eosinophils (Bld) [#/Vol] 0.02 10*3/uL Normal <0.46 [facility] Comment on above: Order Comment: Speci men Type: BLOOD SPECIMENOrdering Facility: [facility] Address: [address] [place] [address] Performed By: #### 5 7021-8 ####[facility] LABCLIA [id number] [address] LABCLIA [id number] [place] [address] Eosinophils/100 WBC (Bld) 1.0 % Normal [facility] Comment on above: Order Comment: Speci men Type: BLOOD SPECIMENOrdering Facility: [facility] Address: [address] [place] [address] Performed By: #### 5 7021-8 ####[facility] LABCLIA [id number] [place] [address] [facility] LABCLIA [id number] [place] [address] Erythrocyte distribution width (RBC) [Ratio] 15.9 % High 11.5-15.0 [facility] Comment on above: Order Comment: Speci men Type: BLOOD SPECIMENOrdering Facility: [facility] Address: [address] [place] [address] Performed By: #### 5 7021-8 ####[facility] LABCLIA [id number] [address] LABCLIA [id number] [place] [id number] Hematocrit (Bld) [Volume fraction] 24.2 % Low 39.0-51.0 [facility] Comment on above: Order Comment: Speci men Type: BLOOD SPECIMENOrdering Facility: [facility] Address: [address] [place] [address] Performed By: #### 5 7021-8 ####[facility] LABCLIA [id number] [address] LABCLIA [id number] [place] [address] Hemoglobin (Bld) [Mass/Vol] 7.7 g/dL Low 13.0-17.0 [facility] Comment on above: Order Comment: Speci men Type: BLOOD SPECIMENOrdering Facility: [facility] Address: [address] [place] [address] Performed By: #### 5 7021-8 ####[facility] LABCLIA [id number] [address] LABIA [id number] [place] [address] HYPOGRANULATED PMNS Occasional Normal [facility] Comment on above: Order Comment: Speci men Type: BLOOD SPECIMENOrdering Facility: [facility] Address: [address] [place] [address] Performed By: #### 5 7021-8 ####[facility] LABCLIA [id number] [address] LABCLIA [id number] [place] [address] Lymphocytes (Bld) [#/Vol] 0.55 10*3/uL Low 1.00-4.00 [facility] Comment on above: Order Comment: Speci men Type: BLOOD SPECIMENOrdering Facility: [facility] Address: [address] [place] [address] Performed By: #### 5 7021-8 ####[facility] LABCLIA [id number] [address] LABCLIA [id number] [place] [address] Lymphocytes/100 WBC (Bld) 28.0 % Normal [facility] Comment on above: Order Comment: Speci men Type: BLOOD SPECIMENOrdering Facility: [facility] Address: [address] [place] [address] Performed By: #### 5 7021-8 ####[facility] LABCLIA [id number] [address] LABCLIA [id number] [place] [address] MCH (RBC) [Entitic mass] 30.4 pg Normal 26.0-34.0 [facility] Comment on above: Order Comment: Speci men Type: BLOOD SPECIMENOrdering Facility: [facility] Address: [address] [place], [place] [address] Performed By: #### 5 7021-8 ####[facility] LABCLIA [id number] [address] LABCLIA [id number] [place] [address] MCHC (RBC) [Mass/Vol] 31.8 g/dL Normal 30.5-36.0 [facility] Comment on above: Order Comment: Speci men Type: BLOOD SPECIMENOrdering Facility: [facility] Address: [address] [place] [address] Performed By: #### 5 7021-8 ####[facility] LABCLIA [id number] [address] LABCLIA [id number] [place] [address] MCV (RBC) [Entitic vol] 95.7 fL Normal 80.0-100.0 [facility] Comment on above: Order Comment: Speci men Type: BLOOD SPECIMENOrdering Facility: [facility] Address: [address] [place] [address] Performed By: #### 5 7021-8 ####[facility] LABCLIA [id number] [address] LABCLIA [id number] [place] [address] Metamyelocytes/100 WBC (Bld) 2.0 % Normal [facility] Comment on above: Order Comment: Speci men Type: BLOOD SPECIMENOrdering Facility: [facility] Address: [address] [place] [address] Performed By: #### 5 7021-8 ####[facility] LABCLIA [id number] [address] LABCLIA [id number] [place] [address] Monocytes (Bld) [#/Vol] 0.24 10*3/uL Normal <0.87 [facility] Comment on above: Order Comment: Speci men Type: BLOOD SPECIMENOrdering Facility: [facility] Address: [address] [place] [address] Performed By: #### 5 7021-8 ####[facility] LABCLIA [id number] [address] LABCLIA [id number] [place] [address] Monocytes/100 WBC (Bld) 12.0 % Normal [facility] Comment on above: Order Comment: Speci men Type: BLOOD SPECIMENOrdering Facility: [facility] Address: [address] [place] [address] Performed By: #### 5 7021-8 ####[facility] LABCLIA [id number] [address] LABCLIA [id number] [place] [address] MYELO% 3.0 % Normal [facility] Comment on above: Order Comment: Speci men Type: BLOOD SPECIMENOrdering Facility: [facility] Address: [address] [place] [address] Performed By: #### 5 7021-8 ####[facility] LABCLIA [id number] [address] LABCLIA [id number] [place] [address] Neutrophils (Bld) [#/Vol] 1.01 10*3/uL Low 1.45-7.50 [facility] Comment on above: Order Comment: Speci men Type: BLOOD SPECIMENOrdering Facility: [facility] Address: [address] [place], [place] [address] Performed By: #### 5 7021-8 ####[facility] LABCLIA [id number] [address] LABCLIA [id number] [place] [address] Neutrophils/100 WBC (Bld) 51.0 % Normal [facility] Comment on above: Order Comment: Speci men Type: BLOOD SPECIMENOrdering Facility: [facility] Address: [address] [place] [address] Performed By: #### 5 7021-8 ####[facility] LABCLIA [id number] [address] LABCLIA [id number] [place] [address] Nucleated RBC (Bld) [#/Vol] 10*3/uL Normal <0.01 [facility] Comment on above: Order Comment: Speci men Type: BLOOD SPECIMENOrdering Facility: [facility] Address: [address] [place] [address] Performed By: #### 5 7021-8 ####[facility] LABCLIA [id number] [address] LABCLIA [id number] [place] [address] Nucleated RBC/100 WBC (Bld) [Ratio] 0.0 /100 WBC Normal [facility] Comment on above: Order Comment: Speci men Type: BLOOD SPECIMENOrdering Facility: [facility] Address: [address] [place] [address] Performed By: #### 5 7021-8 ####[facility] LABCLIA [id number] [address] LABCLIA [id number] [place] [address] Ovalocytes LM Ql (Bld) Few Normal [facility] Comment on above: Order Comment: Speci men Type: BLOOD SPECIMENOrdering Facility: [facility] Address: [address] [place] [address] Performed By: #### 5 7021-8 ####[facility] LABCLIA [id number] [address] LABCLIA [id number] [place] [address] Platelet mean volume (Bld) [Entitic vol] Normal [facility] Comment on above: Order Comment: Speci men Type: BLOOD SPECIMENOrdering Facility: [facility] Address: [address] [place] [address] Result Comment: Unab le to report Performed By: #### 5 7021-8 ####[facility] LABCLIA [id number] [address] LABCLIA [id number] [place] [address] Platelets (Bld) [#/Vol] 50 10*3/uL Low 150-400 [facility] Comment on above: Order Comment: Speci men Type: BLOOD SPECIMENOrdering Facility: [facility] Address: [address] [place] [address] Result Comment: Resu lt rechecked. No clot detected. Performed By: #### 5 7021-8 ####[facility] LABCLIA [id number] [address] LABCLIA [id number] [place] [address] Polychromasia LM Ql (Bld) Slight Normal [facility] Comment on above: Order Comment: Speci men Type: BLOOD SPECIMENOrdering Facility: [facility] Address: [address] [place] [address] Performed By: #### 5 7021-8 ####[facility] LABCLIA [id number] [address] LABCLIA [id number] [place] [address] RBC (Bld) [#/Vol] 2.53 10*6/uL Low 4.20-6.00 [facility] Comment on above: Order Comment: Speci men Type: BLOOD SPECIMENOrdering Facility: [facility] Address: [address] [place] [address] Performed By: #### 5 7021-8 ####[facility] LABCLIA [id number] [address] LABCLIA [id number] [place] [address] RED CELL MORPH Reviewed: see result s of individual morphologies Normal [facility] Comment on above: Order Comment: Speci men Type: BLOOD SPECIMENOrdering Facility: [facility] Address: [address] [place] [address] Performed By: #### 5 7021-8 ####[facility] LABCLIA [id number] [address] LABCLIA [id number] [place] [address] WBC (Bld) [#/Vol] 2.00 10*3/uL Low 3.70-11.00 [facility] Comment on above: Order Comment: Speci men Type: BLOOD SPECIMENOrdering Facility: [facility] Address: [address] [place] [address] Result Comment: Resu lt rechecked. No clot detected. Performed By: #### 5 7021-8 ####[facility] LABCLIA [id number] [address] LABCLIA [id number] [place] [address] WBC Left Shift Ql (Bld) Present Normal [facility] Comment on above: Order Comment: Speci men Type: BLOOD SPECIMENOrdering Facility: [facility] Address: [address] [place] [address] Performed By: #### 5 7021-8 ####[facility] LABCLIA [id number] [address] LABCLIA [id number] [place] [address] CNOVSPon 08-21-2022 CNOVSP Normal [facility] CNPNon 08-21-2022 CNPN Normal [facility] Comprehensive metabolic 2000 panelon 08-21-2022 Albumin [Mass/Vol] 4.0 g/dL Normal 3.9-4.9 [facility] Comment on above: Order Comment: Speci men Type: BLOOD SPECIMENOrdering Facility: [facility] Address: [address] [place] [address] Performed By: #### 2 4323-8 ####[facility] LABCLIA [id number] [place] [address] ALP [Catalytic activity/Vol] 146 U/L High 38-113 [facility] Comment on above: Order Comment: Speci men Type: BLOOD SPECIMENOrdering Facility: [facility] Address: [address] [place] [address] Performed By: #### 2 4323-8 ####[facility] LABCLIA [id number] [place] [address] ALT [Catalytic activity/Vol] 46 U/L Normal 10-54 [facility] Comment on above: Order Comment: Speci men Type: BLOOD SPECIMENOrdering Facility: [facility] Address: [address] [place] [address] Performed By: #### 2 4323-8 ####[facility] LABCLIA [id number] [place] [address] Anion gap [Moles/Vol] 12 mmol/L Normal 9-18 [facility] Comment on above: Order Comment: Speci men Type: BLOOD SPECIMENOrdering Facility: [facility] Address: [address] [place] [address] Performed By: #### 2 4323-8 ####[facility] LABCLIA [id number] [place] [address] AST [Catalytic activity/Vol] 21 U/L Normal 14-40 [facility] Comment on above: Order Comment: Speci men Type: BLOOD SPECIMENOrdering Facility: [facility] Address: [address] [address] Performed By: #### 2 4323-8 ####[facility] LABCLIA [id number] [place] [address] Bilirubin [Mass/Vol] 1.3 mg/dL Normal 0.2-1.3 [facility] Comment on above: Order Comment: Speci men Type: BLOOD SPECIMENOrdering Facility: [facility] Address: [address] [address] Performed By: #### 2 4323-8 ####[facility] LABCLIA [id number] [place] [address] Calcium [Mass/Vol] 8.7 mg/dL Normal 8.5-10.2 [facility] Comment on above: Order Comment: Speci men Type: BLOOD SPECIMENOrdering Facility: [facility] Address: [address] [address] Performed By: #### 2 4323-8 ####[facility] LABCLIA [id number] [place] [address] Chloride [Moles/Vol] 99 mmol/L Normal 97-105 [facility] Comment on above: Order Comment: Speci men Type: BLOOD SPECIMENOrdering Facility: [facility] Address: [address] [address] Performed By: #### 2 4323-8 ####[facility] LABCLIA [id number] [place] [address] CO2 [Moles/Vol] 32 mmol/L High 22-30 [facility] Comment on above: Order Comment: Speci men Type: BLOOD SPECIMENOrdering Facility: [facility] Address: [address] [address] Performed By: #### 2 4323-8 ####[facility] LABCLIA [id number] [place] [address] Creatinine [Mass/Vol] 1.65 mg/dL High 0.73-1.22 [facility] Comment on above: Order Comment: Davi kateryna Type: BLOOD SPECIMENOrdering Facility: [facility] Address: [address] [place] [address] Performed By: #### 2 4323-8 ####[facility] LABCLIA [id number] [place] [address] ESTIMATED GLOMERULAR FILTRATION RATE 41 mL/min/1.73m??? Low >=60 [facility] Comment on above: Order Comment: Davi avendaño Type: BLOOD SPECIMENOrdering Facility: [facility] Address: [address] [place] [address] Result Comment: Faye mated Glomerular Filtration Rate [...] actual GFR. Performed By: #### 2 4323-8 ####[facility] LABCLIA [id number] [place] [address] Glucose [Mass/Vol] 177 mg/dL High 74-99 [facility] Comment on above: Order Comment: Davi avendaño Type: BLOOD SPECIMENOrdering Facility: [facility] Address: [address] [place] [address] Result Comment: The [place] [employer] (ADA) provides guidance for cutoff [...] Standards of Medical Care in Diabetes 2016, [place] [employer]. Diabetes Care. 2016.39(Suppl 1). Performed By: #### 2 4323-8 ####[facility] LABCLIA [id number] [place] [address] Potassium [Moles/Vol] 3.5 mmol/L Low 3.7-5.1 [facility] Comment on above: Order Comment: Speci men Type: BLOOD SPECIMENOrdering Facility: [facility] Address: [address] [address] Performed By: #### 2 4323-8 ####[facility] LABCLIA [id number] [place] [address] Protein [Mass/Vol] 6.5 g/dL Normal 6.3-8.0 [facility] Comment on above: Order Comment: Speci men Type: BLOOD SPECIMENOrdering Facility: [facility] Address: [address] [place] [place] [address] Performed By: #### 2 4323-8 ####[facility] LABCLIA [id number] [place] [address] Sodium [Moles/Vol] 143 mmol/L Normal 136-144 [facility] Comment on above: Order Comment: Speci men Type: BLOOD SPECIMENOrdering Facility: [facility] Address: [address] [place] [place] [address] Performed By: #### 2 4323-8 ####[facility] LABCLIA [id number] [place] [address] Urea nitrogen [Mass/Vol] 28 mg/dL High 9-24 [facility] Comment on above: Order Comment: Speci men Type: BLOOD SPECIMENOrdering Facility: [facility] Address: [address] [place] [address] Performed By: #### 2 4323-8 ####[facility] LABCLIA [id number] [place] [id number] HEMOGRAM AND PLATELon 2022 Hematocrit (Bld) [Volume fraction] 26.2 % Critically low 42.0-54.0 [facility] Comment on above: Performed By: #### T NS, PRBC #### [facility] [address] [place] [address] Dr. Benito To Hemoglobin (Bld) [Mass/Vol] 7.7 g/dL Critically low 14.0-18.0 [facility] Comment on above: Performed By: #### T NS, PRBC #### [facility] [address] [place] [address] Dr. Benito To MCH (RBC) [Entitic mass] 30.2 pg Normal 25.9-34.0 [facility] Comment on above: Performed By: #### T NS, PRBC #### [facility] [address] [place] [address] Dr. Benito To MCHC (RBC) [Mass/Vol] 29.4 g/dL Critically low 29.9-35.2 [facility] Comment on above: Performed By: #### T NS, PRBC #### [facility] [address] [place] [address] Dr. Benito To MCV (RBC) [Entitic vol] 102.7 fL Critically high 80.0-94.0 [facility] Comment on above: Performed By: #### T NS, PRBC #### [facility] [address] [place] [address] Dr. Benito To PLT 44 103/ul Critically low 150-450 [facility] Comment on above: Performed By: #### T NS, PRBC #### [facility] [address] [place] [address] Dr. Benito To RBC 2.55 106/ul Critically low 4.70-6.10 [facility] Comment on above: Performed By: #### T NS, PRBC #### [facility] [address] [place] [address] Dr. Benito To WBC 1.8 103/ul Critically low 4.0-11.0 [facility] Comment on above: Performed By: #### T ZEHRA, PRBC #### [facility] [address] [place], [place] [address] Dr. Benito To TYPE AND SCREENon 08-21-2022 TYPE AND SCREEN Negative Normal The [facility] Comment on above: Performed By: #### T ZEHRA, PRBC #### [facility] [address] [place], [place] [address] Dr. Benito To CBC W Auto Differential pane l (Bld)on 08-14-2022 Anisocytosis Ql (Bld) Present Normal [facility] Comment on above: Order Comment: Speci men Type: BLOOD SPECIMENOrdering Facility: [facility] Address: [address] [place] [address] Performed By: #### 5 7021-8 ####[facility] LABCLIA [id number] [address] LABCLIA [id number] [place] [address] Basophils (Bld) [#/Vol] 0.06 10*3/uL Normal <0.11 [facility] Comment on above: Order Comment: Speci men Type: BLOOD SPECIMENOrdering Facility: [facility] Address: [address] [place] [address] Performed By: #### 5 7021-8 ####[facility] LABCLIA [id number] [address] LABCLIA [id number] [place] [address] Basophils/100 WBC (Bld) 3.0 % Normal [facility] Comment on above: Order Comment: Speci men Type: BLOOD SPECIMENOrdering Facility: [facility] Address: [address] [place] [address] Performed By: #### 5 7021-8 ####[facility] LABCLIA [id number] [place] [id number] [facility] LABCLIA [id number] [place] [address] Differential cell count method Nom (Bld) Manual Normal [facility] Comment on above: Order Comment: Speci men Type: BLOOD SPECIMENOrdering Facility: [facility] Address: [address] [place] [address] Performed By: #### 5 7021-8 ####[facility] LABCLIA [id number] [address] LABCLIA [id number] [place] [address] Eosinophils (Bld) [#/Vol] 0.04 10*3/uL Normal <0.46 [facility] Comment on above: Order Comment: Speci men Type: BLOOD SPECIMENOrdering Facility: [facility] Address: [address] [place] [address] Performed By: #### 5 7021-8 ####[facility] LABCLIA [id number] [address] LABCLIA [id number] [place] [address] Eosinophils/100 WBC (Bld) 2.0 % Normal [facility] Comment on above: Order Comment: Speci men Type: BLOOD SPECIMENOrdering Facility: [facility] Address: [address] [place], [place] [address] Performed By: #### 5 7021-8 ####[facility] LABCLIA [id number] [address] LABCLIA [id number] [place] [address] Erythrocyte distribution width (RBC) [Ratio] 16.4 % High 11.5-15.0 [facility] Comment on above: Order Comment: Speci men Type: BLOOD SPECIMENOrdering Facility: [facility] Address: [address] [place] [address] Performed By: #### 5 7021-8 ####[facility] LABCLIA [id number] [address] LABCLIA [id number] [place] [address] Hematocrit (Bld) [Volume fraction] 23.6 % Low 39.0-51.0 [facility] Comment on above: Order Comment: Speci men Type: BLOOD SPECIMENOrdering Facility: [facility] Address: [address] [place] [address] Performed By: #### 5 7021-8 ####[facility] LABCLIA [id number] [address] LABCLIA [id number] [place] [address] Hemoglobin (Bld) [Mass/Vol] 7.3 g/dL Low 13.0-17.0 [facility] Comment on above: Order Comment: Speci men Type: BLOOD SPECIMENOrdering Facility: [facility] Address: [address] [place] [address] Performed By: #### 5 7021-8 ####[facility] LABCLIA [id number] [address] LABCLIA [id number] [place] [id number] Lymphocytes (Bld) [#/Vol] 1.10 10*3/uL Normal 1.00-4.00 [facility] Comment on above: Order Comment: Speci men Type: BLOOD SPECIMENOrdering Facility: [facility] Address: [address] [place] [address] Performed By: #### 5 7021-8 ####[facility] LABCLIA [id number] [address] LABCLIA [id number] [place] [address] Lymphocytes/100 WBC (Bld) 56.0 % Normal [facility] Comment on above: Order Comment: Speci men Type: BLOOD SPECIMENOrdering Facility: [facility] Address: [address] [place] [address] Performed By: #### 5 7021-8 ####[facility] LABCLIA [id number] [address] LABCLIA [id number] [place] [address] MCH (RBC) [Entitic mass] 30.5 pg Normal 26.0-34.0 [facility] Comment on above: Order Comment: Speci men Type: BLOOD SPECIMENOrdering Facility: [facility] Address: [address] [place], [place] [address] Performed By: #### 5 7021-8 ####[facility] LABCLIA [id number] [address] LABCLIA [id number] [place] [address] MCHC (RBC) [Mass/Vol] 30.9 g/dL Normal 30.5-36.0 [facility] Comment on above: Order Comment: Speci men Type: BLOOD SPECIMENOrdering Facility: [facility] Address: [address] [place], [place] [address] Performed By: #### 5 7021-8 ####[facility] LABCLIA [id number] [address] LABCLIA [id number] [place] [address] MCV (RBC) [Entitic vol] 98.7 fL Normal 80.0-100.0 [facility] Comment on above: Order Comment: Speci men Type: BLOOD SPECIMENOrdering Facility: [facility] Address: [address] [place] [address] Performed By: #### 5 7021-8 ####[facility] LABCLIA [id number] [address] LABCLIA [id number] [place] [address] Monocytes (Bld) [#/Vol] 0.12 10*3/uL Normal <0.87 [facility] Comment on above: Order Comment: Speci men Type: BLOOD SPECIMENOrdering Facility: [facility] Address: [address] [place] [address] Performed By: #### 5 7021-8 ####[facility] LABCLIA [id number] [address] LABCLIA [id number] [place] [address] Monocytes/100 WBC (Bld) 6.0 % Normal [facility] Comment on above: Order Comment: Speci men Type: BLOOD SPECIMENOrdering Facility: [facility] Address: [address] [place] [address] Performed By: #### 5 7021-8 ####[facility] LABCLIA [id number] [address] LABCLIA [id number] [place] [address] MYELO% 2.0 % Normal [facility] Comment on above: Order Comment: Speci men Type: BLOOD SPECIMENOrdering Facility: [facility] Address: [address] [place] [address] Performed By: #### 5 7021-8 ####[facility] LABCLIA [id number] [address] LABCLIA [id number] [place] [address] Neutrophils (Bld) [#/Vol] 0.63 10*3/uL Low 1.45-7.50 [facility] Comment on above: Order Comment: Speci men Type: BLOOD SPECIMENOrdering Facility: [facility] Address: [address] [place] [address] Performed By: #### 5 7021-8 ####[facility] LABCLIA [id number] [address] LABCLIA [id number] [place] [address] Neutrophils/100 WBC (Bld) 32.0 % Normal [facility] Comment on above: Order Comment: Speci men Type: BLOOD SPECIMENOrdering Facility: [facility] Address: [address] [place] [address] Performed By: #### 5 7021-8 ####[facility] LABCLIA [id number] [address] LABCLIA [id number] [place] [address] Nucleated RBC (Bld) [#/Vol] 10*3/uL Normal <0.01 [facility] Comment on above: Order Comment: Speci men Type: BLOOD SPECIMENOrdering Facility: [facility] Address: [address] [place], [place] [address] Performed By: #### 5 7021-8 ####[facility] LABCLIA [id number] [address] LABCLIA [id number] [place] [address] Nucleated RBC/100 WBC (Bld) [Ratio] 0.0 /100 WBC Normal [facility] Comment on above: Order Comment: Speci men Type: BLOOD SPECIMENOrdering Facility: [facility] Address: [address] [place] [address] Performed By: #### 5 7021-8 ####[facility] LABCLIA [id number] [place] [address] [facility] LABCLIA [id number] [place] [address] Ovalocytes LM Ql (Bld) Few Normal [facility] Comment on above: Order Comment: Speci men Type: BLOOD SPECIMENOrdering Facility: [facility] Address: [address] [place] [address] Performed By: #### 5 7021-8 ####[facility] LABCLIA [id number] [place] [address] [facility] LABCLIA [id number] [place] [address] Platelet mean volume (Bld) [Entitic vol] 14.9 fL High 9.0-12.7 [facility] Comment on above: Order Comment: Speci men Type: BLOOD SPECIMENOrdering Facility: [facility] Address: [address] [place] [address] Performed By: #### 5 7021-8 ####[facility] LABCLIA [id number] [address] LABCLIA [id number] [place] [address] Platelets (Bld) [#/Vol] 73 10*3/uL Low 150-400 [facility] Comment on above: Order Comment: Speci men Type: BLOOD SPECIMENOrdering Facility: [facility] Address: [address] [place] [address] Performed By: #### 5 7021-8 ####[facility] LABCLIA [id number] [place] [address] [facility] LABCLIA [id number] [place] [address] Platelets Estimate (Bld) [#/Vol] Decreased Normal [facility] Comment on above: Order Comment: Speci men Type: BLOOD SPECIMENOrdering Facility: [facility] Address: [address] [place] [address] Performed By: #### 5 7021-8 ####[facility] LABCLIA [id number] [address] LABCLIA [id number] [place] [address] Polychromasia LM Ql (Bld) Slight Normal [facility] Comment on above: Order Comment: Speci men Type: BLOOD SPECIMENOrdering Facility: [facility] Address: [address] [place] [address] Performed By: #### 5 7021-8 ####[facility] LABCLIA [id number] [address] LABCLIA [id number] [place] [address] RBC (Bld) [#/Vol] 2.39 10*6/uL Low 4.20-6.00 [facility] Comment on above: Order Comment: Speci men Type: BLOOD SPECIMENOrdering Facility: [facility] Address: [address] [place] [address] Performed By: #### 5 7021-8 ####[facility] LABCLIA [id number] [address] LABCLIA [id number] [place] [address] RBC FRAGMENTS Few Abnormal None Seen [facility] Comment on above: Order Comment: Speci men Type: BLOOD SPECIMENOrdering Facility: [facility] Address: [address] [place] [address] Performed By: #### 5 7021-8 ####[facility] LABCLIA [id number] [address] LABCLIA [id number] [place] [address] RED CELL MORPH Reviewed: see result s of individual morphologies Normal [facility] Comment on above: Order Comment: Speci men Type: BLOOD SPECIMENOrdering Facility: [facility] Address: [address] [place] [address] Performed By: #### 5 7021-8 ####[facility] LABCLIA [id number] [address] LABCLIA [id number] [place] [address] WBC (Bld) [#/Vol] 1.97 10*3/uL Low 3.70-11.00 [facility] Comment on above: Order Comment: Speci men Type: BLOOD SPECIMENOrdering Facility: [facility] Address: [address] [place] [address] Result Comment: No c lot detected.Results checked and verified. Performed By: #### 5 7021-8 ####[facility] LABCLIA [id number] [address] LABCLIA [id number] [place] [address] CNOVSPon 08-14-2022 CNOVSP Normal [facility] CNPNon 08-14-2022 CNPN Normal [facility] Comprehensive metabolic 2000 panelon 08-14-2022 Albumin [Mass/Vol] 3.9 g/dL Normal 3.9-4.9 [facility] Comment on above: Order Comment: Speci men Type: BLOOD SPECIMENOrdering Facility: [facility] Address: [address] [place] [address] Performed By: #### 2 4323-8 ####[facility] LABCLIA [id number] [place] [address] ALP [Catalytic activity/Vol] 144 U/L High 38-113 [facility] Comment on above: Order Comment: Speci men Type: BLOOD SPECIMENOrdering Facility: [facility] Address: [address] [place] [address] Performed By: #### 2 4323-8 ####[facility] LABCLIA [id number] [place] [address] ALT [Catalytic activity/Vol] 50 U/L Normal 10-54 [facility] Comment on above: Order Comment: Speci men Type: BLOOD SPECIMENOrdering Facility: [facility] Address: [address] [place] [address] Performed By: #### 2 4323-8 ####[facility] LABCLIA [id number] [place] [address] Anion gap [Moles/Vol] 14 mmol/L Normal 9-18 [facility] Comment on above: Order Comment: Speci men Type: BLOOD SPECIMENOrdering Facility: [facility] Address: [address] [place] [address] Performed By: #### 2 4323-8 ####[facility] LABCLIA [id number] [place] [address] AST [Catalytic activity/Vol] 22 U/L Normal 14-40 [facility] Comment on above: Order Comment: Speci men Type: BLOOD SPECIMENOrdering Facility: [facility] Address: [address] [place] [address] Performed By: #### 2 4323-8 ####[facility] LABCLIA [id number] [place] [address] Bilirubin [Mass/Vol] 1.1 mg/dL Normal 0.2-1.3 [facility] Comment on above: Order Comment: Speci men Type: BLOOD SPECIMENOrdering Facility: [facility] Address: [address] [place] [address] Performed By: #### 2 4323-8 ####[facility] LABCLIA [id number] [place] [address] Calcium [Mass/Vol] 9.3 mg/dL Normal 8.5-10.2 [facility] Comment on above: Order Comment: Speci men Type: BLOOD SPECIMENOrdering Facility: [facility] Address: [address] [place] [address] Performed By: #### 2 4323-8 ####[facility] LABCLIA [id number] [place] [address] Chloride [Moles/Vol] 104 mmol/L Normal 97-105 [facility] Comment on above: Order Comment: Speci men Type: BLOOD SPECIMENOrdering Facility: [facility] Address: [address] [place] [address] Performed By: #### 2 4323-8 ####[facility] LABCLIA [id number] [place] [address] CO2 [Moles/Vol] 30 mmol/L Normal 22-30 [facility] Comment on above: Order Comment: Speci men Type: BLOOD SPECIMENOrdering Facility: [facility] Address: [address] [place] [address] Performed By: #### 2 4323-8 ####[facility] LABCLIA [id number] [place] [address] Creatinine [Mass/Vol] 1.40 mg/dL High 0.73-1.22 [facility] Comment on above: Order Comment: Speci men Type: BLOOD SPECIMENOrdering Facility: [facility] Address: [address] [place] [address] Performed By: #### 2 4323-8 ####[facility] LABCLIA [id number] [place] [address] ESTIMATED GLOMERULAR FILTRATION RATE 50 mL/min/1.73m??? Low >=60 [facility] Comment on above: Order Comment: Speci men Type: BLOOD SPECIMENOrdering Facility: [facility] Address: [address] [place] [id number] Result Comment: Faye mated Glomerular Filtration Rate [...] actual GFR. Performed By: #### 2 4323-8 ####[facility] LABCLIA [id number] [place] [address] Glucose [Mass/Vol] 199 mg/dL High 74-99 [facility] Comment on above: Order Comment: Davi avendaño Type: BLOOD SPECIMENOrdering Facility: [facility] Address: [address] [place] [address] Result Comment: The [place] [employer] (ADA) provides guidance for cutoff [...] Standards of Medical Care in Diabetes 2016, [place] [employer]. Diabetes Care. 2016.39(Suppl 1). Performed By: #### 2 4323-8 ####[facility] LABCLIA [id number] [place] [address] Potassium [Moles/Vol] 3.9 mmol/L Normal 3.7-5.1 [facility] Comment on above: Order Comment: aDvi avendaño Type: BLOOD SPECIMENOrdering Facility: [facility] Address: [address] [place] [id number] Performed By: #### 2 4323-8 ####[facility] LABCLIA [id number] [place] [address] Protein [Mass/Vol] 6.5 g/dL Normal 6.3-8.0 [facility] Comment on above: Order Comment: Speci men Type: BLOOD SPECIMENOrdering Facility: [facility] Address: [address] [place] [address] Performed By: #### 2 4323-8 ####[facility] LABCLIA [id number] [place] [address] Sodium [Moles/Vol] 148 mmol/L High 136-144 [facility] Comment on above: Order Comment: Speci men Type: BLOOD SPECIMENOrdering Facility: [facility] Address: [address] [place] [address] Performed By: #### 2 4323-8 ####[facility] LABCLIA [id number] [place] [id number] Urea nitrogen [Mass/Vol] 22 mg/dL Normal 9-24 [facility] Comment on above: Order Comment: Speci men Type: BLOOD SPECIMENOrdering Facility: [facility] Address: [address] [place] [address] Performed By: #### 2 4323-8 ####[facility] LABCLIA [id number] [place] [id number] HEMOGRAM AND PLATELon 2022 Hematocrit (Bld) [Volume fraction] 22.4 % Critically low 42.0-54.0 [facility] Comment on above: Performed By: #### H H #### [facility] [address] [place] [address] [address] Benito To Hemoglobin (Bld) [Mass/Vol] 7.2 g/dL Critically low 14.0-18.0 [facility] Comment on above: Performed By: #### H H #### [facility] [address] [place] [address] [address] Benito To MCH (RBC) [Entitic mass] 30.9 pg Normal 25.9-34.0 [facility] Comment on above: Performed By: #### H H #### [facility] [address] [place] [address] Dr. Benito To MCHC (RBC) [Mass/Vol] 32.1 g/dL Normal 29.9-35.2 [facility] Comment on above: Performed By: #### H H #### [facility] [address] [place] [address] Dr. Benito To MCV (RBC) [Entitic vol] 96.1 fL Critically high 80.0-94.0 [facility] Comment on above: Performed By: #### H H #### [facility] [address] [place] [address] Dr. Benito To PLT 59 103/ul Critically low 150-450 [facility] Comment on above: Performed By: #### H H #### [facility] [address] [place] [address] Dr. Benito To RBC 2.33 106/ul Critically low 4.70-6.10 [facility] Comment on above: Performed By: #### H H #### [facility] [address] [place] [address] Dr. Benito To WBC 1.8 103/ul Critically low 4.0-11.0 [facility] Comment on above: Performed By: #### H H #### [facility] [address] [place] [address] Dr. Benito To LDH SerPl-cCncon 08-14-2022 LDH [Catalytic activity/Vol] 207 U/L Normal 135-225 [facility] Comment on above: Order Comment: Speci men Type: BLOOD SPECIMENOrdering Facility: [facility] Address: [address] [place] [address] Performed By: #### 2 532-0 ####[facility] LABCLIA [id number] [place] [address] TYPE AND SCREENon 08-14-2022 TYPE AND SCREEN Negative Normal [facility] Comment on above: Performed By: #### P RBC, TNS #### [facility] [address] [place] [address] [address] Benito To CNPNon 08-13-2022 CNPN Normal [facility] PRBC LEUKOREDUCEDon 08-12-19 PRBC LEUKOREDUCED Cross Match Result Compatible Unit Blood Type A Pos Unit Number [id number] Status Information Transfused Product ID Red Blood Cells Product Code [id number] Normal [facility] Comment on above: Performed By: #### P RBC, TNS #### [facility] [address] [place] [address] [address] Benito To HEMOGLOBIN AND HEMATOCRITon 08-08-2022 Hematocrit (Bld) [Volume fraction] 23.4 % Critically low 42.0-54.0 [facility] Comment on above: Performed By: #### H H #### [facility] [address] [place] [address] Dr. Benito To Hemoglobin (Bld) [Mass/Vol] 7.0 g/dL Critically low 14.0-18.0 [facility] Comment on above: Performed By: #### H H #### [facility] [address] [place] [address] [address] Benito To TYPE AND SCREENon 08-08-2022 TYPE AND SCREEN Negative Normal [facility] Comment on above: Performed By: #### P RBC, TNS #### [facility] [address] [place] [address] [address] Benito To CBC W Auto Differential pane l (Bld)on 08-07-2022 Anisocytosis Ql (Bld) Present Normal [facility] Comment on above: Order Comment: Speci men Type: BLOOD SPECIMENOrdering Facility: [facility] Address: [address] [place] [address] Performed By: #### 5 7021-8 ####[facility] LABCLIA [id number] [facility] [id number] [address] [facility] LABCLIA [id number] [place] [address] Basophils (Bld) [#/Vol] 0.05 10*3/uL Normal <0.11 [facility] Comment on above: Order Comment: Speci men Type: BLOOD SPECIMENOrdering Facility: [facility] Address: [address] [place] [address] Performed By: #### 5 7021-8 ####[facility] LABCLIA [id number] [address] LABCLIA [id number] [place] [address] Basophils/100 WBC (Bld) 3.0 % Normal [facility] Comment on above: Order Comment: Speci men Type: BLOOD SPECIMENOrdering Facility: [facility] Address: [address] [place] [address] Performed By: #### 5 7021-8 ####[facility] LABCLIA [id number] [address] LABCLIA [id number] [place] [address] Differential cell count method Nom (Bld) Manual Normal [facility] Comment on above: Order Comment: Speci men Type: BLOOD SPECIMENOrdering Facility: [facility] Address: [address] [place] [address] Performed By: #### 5 7021-8 ####[facility] LABCLIA [id number] [address] LABCLIA [id number] [place] [address] Eosinophils (Bld) [#/Vol] 0.05 10*3/uL Normal <0.46 [facility] Comment on above: Order Comment: Speci men Type: BLOOD SPECIMENOrdering Facility: [facility] Address: [address] [place] [address] Performed By: #### 5 7021-8 ####[facility] LABCLIA [id number] [address] [address] [facility] LABCLIA [id number] [place] [address] Eosinophils/100 WBC (Bld) 3.0 % Normal [facility] Comment on above: Order Comment: Speci men Type: BLOOD SPECIMENOrdering Facility: [facility] Address: [address] [place], [place] [address] Performed By: #### 5 7021-8 ####[facility] LABCLIA [id number] [address] LABCLIA [id number] [place] [address] Erythrocyte distribution width (RBC) [Ratio] 16.4 % High 11.5-15.0 [facility] Comment on above: Order Comment: Speci men Type: BLOOD SPECIMENOrdering Facility: [facility] Address: [address] [place] [address] Performed By: #### 5 7021-8 ####[facility] LABCLIA [id number] [address] LABCLIA [id number] [place] [address] Giant platelets LM Ql (Bld) Occasional Normal [facility] Comment on above: Order Comment: Speci men Type: BLOOD SPECIMENOrdering Facility: [facility] Address: [address] [place] [address] Performed By: #### 5 7021-8 ####[facility] LABCLIA [id number] [place] [id number] [facility] LABCLIA [id number] [place] [address] Hematocrit (Bld) [Volume fraction] 23.4 % Low 39.0-51.0 [facility] Comment on above: Order Comment: Speci men Type: BLOOD SPECIMENOrdering Facility: [facility] Address: [address] [place] [address] Performed By: #### 5 7021-8 ####[facility] LABCLIA [id number] [address] LABCLIA [id number] [place] [address] Hemoglobin (Bld) [Mass/Vol] 7.2 g/dL Low 13.0-17.0 [facility] Comment on above: Order Comment: Speci men Type: BLOOD SPECIMENOrdering Facility: [facility] Address: [address] [place] [address] Performed By: #### 5 7021-8 ####[facility] LABCLIA [id number] [address] LABCLIA [id number] [place] [address] Lymphocytes (Bld) [#/Vol] 0.89 10*3/uL Low 1.00-4.00 [facility] Comment on above: Order Comment: Speci men Type: BLOOD SPECIMENOrdering Facility: [facility] Address: [address] [place] [address] Performed By: #### 5 7021-8 ####[facility] LABCLIA [id number] [address] LABCLIA [id number] [place] [address] Lymphocytes/100 WBC (Bld) 54.0 % Normal [facility] Comment on above: Order Comment: Speci men Type: BLOOD SPECIMENOrdering Facility: [facility] Address: [address] [place] [address] Performed By: #### 5 7021-8 ####[facility] LABCLIA [id number] [place] [address] LABCLIA [id number] [place] [address] MCH (RBC) [Entitic mass] 30.3 pg Normal 26.0-34.0 [facility] Comment on above: Order Comment: Speci men Type: BLOOD SPECIMENOrdering Facility: [facility] Address: [address] [place] [address] Performed By: #### 5 7021-8 ####[facility] LABCLIA [id number] [address] LABCLIA [id number] [place] [address] MCHC (RBC) [Mass/Vol] 30.8 g/dL Normal 30.5-36.0 [facility] Comment on above: Order Comment: Speci men Type: BLOOD SPECIMENOrdering Facility: [facility] Address: [address] [place] [address] Performed By: #### 5 7021-8 ####[facility] LABCLIA [id number] [address] LABCLIA [id number] [place] [address] MCV (RBC) [Entitic vol] 98.3 fL Normal 80.0-100.0 [facility] Comment on above: Order Comment: Speci men Type: BLOOD SPECIMENOrdering Facility: [facility] Address: [address] [place] [address] Performed By: #### 5 7021-8 ####[facility] LABCLIA [id number] [address] LABCLIA [id number] [place] [address] Monocytes (Bld) [#/Vol] 0.12 10*3/uL Normal <0.87 [facility] Comment on above: Order Comment: Speci men Type: BLOOD SPECIMENOrdering Facility: [facility] Address: [address] [place] [address] Performed By: #### 5 7021-8 ####[facility] LABCLIA [id number] [address] LABCLIA [id number] [place] [address] Monocytes/100 WBC (Bld) 7.0 % Normal [facility] Comment on above: Order Comment: Speci men Type: BLOOD SPECIMENOrdering Facility: [facility] Address: [address] [place] [address] Performed By: #### 5 7021-8 ####[facility] LABCLIA [id number] [address] LABCLIA [id number] [place] [address] Neutrophils (Bld) [#/Vol] 0.54 10*3/uL Low 1.45-7.50 [facility] Comment on above: Order Comment: Speci men Type: BLOOD SPECIMENOrdering Facility: [facility] Address: [address] [place] [address] Performed By: #### 5 7021-8 ####[facility] LABCLIA [id number] [address] LABCLIA [id number] [place] [address] Neutrophils/100 WBC (Bld) 33.0 % Normal [facility] Comment on above: Order Comment: Speci men Type: BLOOD SPECIMENOrdering Facility: [facility] Address: [address] [place], [place] [address] Performed By: #### 5 7021-8 ####[facility] LABCLIA [id number] [place] [facility] [id number] [place] [address] LABCLIA [id number] [place] [address] Nucleated RBC (Bld) [#/Vol] 10*3/uL Normal <0.01 [facility] Comment on above: Order Comment: Speci men Type: BLOOD SPECIMENOrdering Facility: [facility] Address: [address] [place] [address] Result Comment: This result was previously suppressed from the chart. Performed By: #### 5 7021-8 ####[facility] LABCLIA [id number] [address] LABCLIA [id number] [place] [address] Nucleated RBC/100 WBC (Bld) [Ratio] 0.0 /100 WBC Normal [facility] Comment on above: Order Comment: Speci men Type: BLOOD SPECIMENOrdering Facility: [facility] Address: [address] [place] [address] Performed By: #### 5 7021-8 ####[facility] LABCLIA [id number] [address] LABCLIA [id number] [place] [address] Ovalocytes LM Ql (Bld) Few Normal [facility] Comment on above: Order Comment: Speci men Type: BLOOD SPECIMENOrdering Facility: [facility] Address: [address] [place] [address] Performed By: #### 5 7021-8 ####[facility] LABCLIA [id number] [address] LABCLIA [id number] [place] [address] Platelet mean volume (Bld) [Entitic vol] 15.0 fL High 9.0-12.7 [facility] Comment on above: Order Comment: Speci men Type: BLOOD SPECIMENOrdering Facility: [facility] Address: [address] [place] [address] Performed By: #### 5 7021-8 ####[facility] LABCLIA [id number] [address] LABCLIA [id number] [place] [address] Platelets (Bld) [#/Vol] 76 10*3/uL Low 150-400 [facility] Comment on above: Order Comment: Speci men Type: BLOOD SPECIMENOrdering Facility: [facility] Address: [address] [place] [address] Performed By: #### 5 7021-8 ####[facility] LABCLIA [id number] [address] LABCLIA [id number] [place] [address] Platelets Estimate (Bld) [#/Vol] Decreased Normal [facility] Comment on above: Order Comment: Speci men Type: BLOOD SPECIMENOrdering Facility: [facility] Address: [address] [place] [address] Performed By: #### 5 7021-8 ####[facility] LABCLIA [id number] [address] LABCLIA [id number] [place] [address] RBC (Bld) [#/Vol] 2.38 10*6/uL Low 4.20-6.00 [facility] Comment on above: Order Comment: Speci men Type: BLOOD SPECIMENOrdering Facility: [facility] Address: [address] [place], [place] [address] Performed By: #### 5 7021-8 ####[facility] LABCLIA [id number] [place] [facility] [id number] [place] [address] LABCLIA [id number] [place] [address] RED CELL MORPH Reviewed: see result s of individual morphologies Normal [facility] Comment on above: Order Comment: Speci men Type: BLOOD SPECIMENOrdering Facility: [facility] Address: [address] [place] [address] Performed By: #### 5 7021-8 ####[facility] LABCLIA [id number] [address] LABCLIA [id number] [place] [address] WBC (Bld) [#/Vol] 1.65 10*3/uL Low 3.70-11.00 [facility] Comment on above: Order Comment: Speci men Type: BLOOD SPECIMENOrdering Facility: [facility] Address: [address] [place], [place] [address] Performed By: #### 5 7021-8 ####[facility] LABCLIA [id number] [address] LABCLIA [id number] [place] [address] CNOVSPon 08-07-2022 CNOVSP Normal [facility] Comprehensive metabolic 2000 panelon 08-07-2022 Albumin [Mass/Vol] 3.9 g/dL Normal 3.9-4.9 [facility] Comment on above: Order Comment: Speci men Type: BLOOD SPECIMENOrdering Facility: [facility] Address: [address] [place], [place] [address] Performed By: #### 2 4323-8 ####[facility] LABCLIA [id number] [place] [address] ALP [Catalytic activity/Vol] 144 U/L High 38-113 [facility] Comment on above: Order Comment: Speci men Type: BLOOD SPECIMENOrdering Facility: [facility] Address: [address] [place] [address] Performed By: #### 2 4323-8 ####[facility] LABCLIA [id number] [place] [address] ALT [Catalytic activity/Vol] 64 U/L High 10-54 [facility] Comment on above: Order Comment: Speci men Type: BLOOD SPECIMENOrdering Facility: [facility] Address: [address] [place] [address] Performed By: #### 2 4323-8 ####[facility] LABCLIA [id number] [place] [address] Anion gap [Moles/Vol] 9 mmol/L Normal 9-18 [facility] Comment on above: Order Comment: Speci men Type: BLOOD SPECIMENOrdering Facility: [facility] Address: [address] [place] [address] Performed By: #### 2 4323-8 ####[facility] LABCLIA [id number] [place] [address] AST [Catalytic activity/Vol] 31 U/L Normal 14-40 [facility] Comment on above: Order Comment: Speci men Type: BLOOD SPECIMENOrdering Facility: [facility] Address: [address] [place] [address] Performed By: #### 2 4323-8 ####[facility] LABCLIA [id number] [place] [address] Bilirubin [Mass/Vol] 1.0 mg/dL Normal 0.2-1.3 [facility] Comment on above: Order Comment: Speci men Type: BLOOD SPECIMENOrdering Facility: [facility] Address: [address] [place] [address] Performed By: #### 2 4323-8 ####[facility] LABCLIA [id number] [place] [address] Calcium [Mass/Vol] 9.0 mg/dL Normal 8.5-10.2 [facility] Comment on above: Order Comment: Speci men Type: BLOOD SPECIMENOrdering Facility: [facility] Address: [address] [place] [address] Performed By: #### 2 4323-8 ####[facility] LABCLIA [id number] [place] [address] Chloride [Moles/Vol] 102 mmol/L Normal 97-105 [facility] Comment on above: Order Comment: Speci men Type: BLOOD SPECIMENOrdering Facility: [facility] Address: [address] [place] [address] Performed By: #### 2 4323-8 ####[facility] LABCLIA [id number] [place] [address] CO2 [Moles/Vol] 32 mmol/L High 22-30 [facility] Comment on above: Order Comment: Speci men Type: BLOOD SPECIMENOrdering Facility: [facility] Address: [address] [place] [address] Performed By: #### 2 4323-8 ####[facility] LABCLIA [id number] [place] [address] Creatinine [Mass/Vol] 1.54 mg/dL High 0.73-1.22 [facility] Comment on above: Order Comment: Speci men Type: BLOOD SPECIMENOrdering Facility: [facility] Address: [address] [place] [address] Performed By: #### 2 4323-8 ####[facility] LABCLIA [id number] [place] [address] ESTIMATED GLOMERULAR FILTRATION RATE 44 mL/min/1.73m??? Low >=60 [facility] Comment on above: Order Comment: Speci men Type: BLOOD SPECIMENOrdering Facility: [facility] Address: [address] [place] [address] Result Comment: Faye mated Glomerular Filtration Rate [...] actual GFR. Performed By: #### 2 4323-8 ####[facility] LABCLIA [id number] [place] [address] Glucose [Mass/Vol] 138 mg/dL High 74-99 [facility] Comment on above: Order Comment: Davi avendaño Type: BLOOD SPECIMENOrdering Facility: [facility] Address: [address] [place] [address] Result Comment: The [place] [employer] (ADA) provides guidance for cutoff [...] Standards of Medical Care in Diabetes 2016, [place] [employer]. Diabetes Care. 2016.39(Suppl 1). Performed By: #### 2 4323-8 ####[facility] LABCLIA [id number] [place] [address] Potassium [Moles/Vol] 4.2 mmol/L Normal 3.7-5.1 [facility] Comment on above: Order Comment: Davi avendaño Type: BLOOD SPECIMENOrdering Facility: [facility] Address: [place] [address] Performed By: #### 2 4323-8 ####[facility] LABCLIA [id number] [place] [address] Protein [Mass/Vol] 6.1 g/dL Low 6.3-8.0 [facility] Comment on above: Order Comment: Speci men Type: BLOOD SPECIMENOrdering Facility: [facility] Address: [address] [place] [address] Performed By: #### 2 4323-8 ####[facility] LABCLIA [id number] [place] [address] Sodium [Moles/Vol] 143 mmol/L Normal 136-144 [facility] Comment on above: Order Comment: Speci men Type: BLOOD SPECIMENOrdering Facility: [facility] Address: [address] [place] [address] Performed By: #### 2 4323-8 ####[facility] LABIA [id number] [place] [address] Urea nitrogen [Mass/Vol] 27 mg/dL High 9-24 [facility] Comment on above: Order Comment: Speci men Type: BLOOD SPECIMENOrdering Facility: [facility] Address: [address] [place] [address] Performed By: #### 2 4323-8 ####[facility] LABIA [id number] [place] [address] CBC W Auto Differential pane l (Bld)on 07-30-2022 Anisocytosis Ql (Bld) Present Normal [facility] Comment on above: Order Comment: Speci men Type: BLOOD SPECIMENOrdering Facility: [facility] Address: [address] [place] [address] Performed By: #### 5 7021-8 ####[facility] LABCLIA [id number] [facility] [id number] LABCLIA [id number] [place] [address] Basophils (Bld) [#/Vol] 0.06 10*3/uL Normal <0.11 [facility] Comment on above: Order Comment: Speci men Type: BLOOD SPECIMENOrdering Facility: [facility] Address: [address] [place] [address] Performed By: #### 5 7021-8 ####[facility] LABCLIA [id number] [place] [id number] [facility] LABCLIA [id number] [place] [address] Basophils/100 WBC (Bld) 3.0 % Normal [facility] Comment on above: Order Comment: Speci men Type: BLOOD SPECIMENOrdering Facility: [facility] Address: [address] [place], [place] [address] Performed By: #### 5 7021-8 ####[facility] LABCLIA [id number] [address] LABCLIA [id number] [place] [address] BLAST% 1.0 % High <=0.0 [facility] Comment on above: Order Comment: Speci men Type: BLOOD SPECIMENOrdering Facility: [facility] Address: [address] [place] [address] Result Comment: This result was previously suppressed from the chart. Performed By: #### 5 7021-8 ####[facility] LABCLIA [id number] [address] LABCLIA [id number] [place] [address] Differential cell count method Nom (Bld) Manual Normal [facility] Comment on above: Order Comment: Speci men Type: BLOOD SPECIMENOrdering Facility: [facility] Address: [address] [place], [place] [address] Performed By: #### 5 7021-8 ####[facility] LABCLIA [id number] [place] [address] [facility] LABCLIA [id number] [place] [address] Eosinophils (Bld) [#/Vol] 0.08 10*3/uL Normal <0.46 [facility] Comment on above: Order Comment: Speci men Type: BLOOD SPECIMENOrdering Facility: [facility] Address: [address] [place] [address] Performed By: #### 5 7021-8 ####[facility] LABCLIA [id number] [address] LABCLIA [id number] [place] [id number] Eosinophils/100 WBC (Bld) 4.0 % Normal [facility] Comment on above: Order Comment: Speci men Type: BLOOD SPECIMENOrdering Facility: [facility] Address: [address] [place] [address] Performed By: #### 5 7021-8 ####[facility] LABCLIA [id number] [address] LABCLIA [id number] [place] [id number] Erythrocyte distribution width (RBC) [Ratio] 15.9 % High 11.5-15.0 [facility] Comment on above: Order Comment: Speci men Type: BLOOD SPECIMENOrdering Facility: [facility] Address: [address] [place], [place] [address] Performed By: #### 5 7021-8 ####[facility] LABCLIA [id number] [address] LABCLIA [id number] [place] [id number] Giant platelets LM Ql (Bld) Occasional Normal [facility] Comment on above: Order Comment: Speci men Type: BLOOD SPECIMENOrdering Facility: [facility] Address: [address] [place] [address] Performed By: #### 5 7021-8 ####[facility] LABCLIA [id number] [address] LABCLIA [id number] [place] [address] Hematocrit (Bld) [Volume fraction] 27.5 % Low 39.0-51.0 [facility] Comment on above: Order Comment: Speci men Type: BLOOD SPECIMENOrdering Facility: [facility] Address: [address] [place] [address] Performed By: #### 5 7021-8 ####[facility] LABCLIA [id number] [address] LABCLIA [id number] [place] [address] Hemoglobin (Bld) [Mass/Vol] 8.6 g/dL Low 13.0-17.0 [facility] Comment on above: Order Comment: Speci men Type: BLOOD SPECIMENOrdering Facility: [facility] Address: [address] [place] [address] Performed By: #### 5 7021-8 ####[facility] LABCLIA [id number] [address] LABCLIA [id number] [place] [address] Lymphocytes (Bld) [#/Vol] 0.84 10*3/uL Low 1.00-4.00 [facility] Comment on above: Order Comment: Speci men Type: BLOOD SPECIMENOrdering Facility: [facility] Address: [address] [place], [place] [address] Performed By: #### 5 7021-8 ####[facility] LABCLIA [id number] [address] LABCLIA [id number] [place] [address] Lymphocytes/100 WBC (Bld) 41.0 % Normal [facility] Comment on above: Order Comment: Speci men Type: BLOOD SPECIMENOrdering Facility: [facility] Address: [address] [place] [address] Performed By: #### 5 7021-8 ####[facility] LABCLIA [id number] [address] LABCLIA [id number] [place] [address] MCH (RBC) [Entitic mass] 30.5 pg Normal 26.0-34.0 [facility] Comment on above: Order Comment: Speci men Type: BLOOD SPECIMENOrdering Facility: [facility] Address: [address] [place] [address] Performed By: #### 5 7021-8 ####[facility] LABCLIA [id number] [address] LABCLIA [id number] [place] [address] MCHC (RBC) [Mass/Vol] 31.3 g/dL Normal 30.5-36.0 [facility] Comment on above: Order Comment: Speci men Type: BLOOD SPECIMENOrdering Facility: [facility] Address: [address] [place] [address] Performed By: #### 5 7021-8 ####[facility] LABCLIA [id number] [address] LABCLIA [id number] [place] [address] MCV (RBC) [Entitic vol] 97.5 fL Normal 80.0-100.0 [facility] Comment on above: Order Comment: Speci men Type: BLOOD SPECIMENOrdering Facility: [facility] Address: [address] [place] [address] Performed By: #### 5 7021-8 ####[facility] LABCLIA [id number] [address] LABCLIA [id number] [place] [address] Monocytes (Bld) [#/Vol] 0.10 10*3/uL Normal <0.87 [facility] Comment on above: Order Comment: Speci men Type: BLOOD SPECIMENOrdering Facility: [facility] Address: [address] [place] [address] Performed By: #### 5 7021-8 ####[facility] LABCLIA [id number] [address] LABCLIA [id number] [place] [address] Monocytes/100 WBC (Bld) 5.0 % Normal [facility] Comment on above: Order Comment: Speci men Type: BLOOD SPECIMENOrdering Facility: [facility] Address: [address] [place] [address] Performed By: #### 5 7021-8 ####[facility] LABCLIA [id number] [address] LABCLIA [id number] [place] [address] Neutrophils (Bld) [#/Vol] 0.95 10*3/uL Low 1.45-7.50 [facility] Comment on above: Order Comment: Speci men Type: BLOOD SPECIMENOrdering Facility: [facility] Address: [address] [place], [place] [address] Performed By: #### 5 7021-8 ####[facility] LABCLIA [id number] [address] LABCLIA [id number] [place] [address] Neutrophils/100 WBC (Bld) 46.0 % Normal [facility] Comment on above: Order Comment: Speci men Type: BLOOD SPECIMENOrdering Facility: [facility] Address: [address] [place] [address] Performed By: #### 5 7021-8 ####[facility] LABCLIA [id number] [address] LABCLIA [id number] [place] [address] Nucleated RBC (Bld) [#/Vol] 10*3/uL Normal <0.01 [facility] Comment on above: Order Comment: Speci men Type: BLOOD SPECIMENOrdering Facility: [facility] Address: [address] [place] [address] Result Comment: This result was previously suppressed from the chart. Performed By: #### 5 7021-8 ####[facility] [facility] [id number] [address] LABCLIA [id number] [place] [address] Nucleated RBC/100 WBC (Bld) [Ratio] 0.0 /100 WBC Normal [facility] Comment on above: Order Comment: Speci men Type: BLOOD SPECIMENOrdering Facility: [facility] Address: [address] [place] [address] Performed By: #### 5 7021-8 ####[facility] LABCLIA [id number] [address] LABCLIA [id number] [place] [address] Ovalocytes LM Ql (Bld) Few Normal [facility] Comment on above: Order Comment: Speci men Type: BLOOD SPECIMENOrdering Facility: [facility] Address: [address] [place] [address] Performed By: #### 5 7021-8 ####[facility] LABCLIA [id number] [address] LABCLIA [id number] [place] [address] Platelet mean volume (Bld) [Entitic vol] Normal [facility] Comment on above: Order Comment: Speci men Type: BLOOD SPECIMENOrdering Facility: [facility] Address: [address] [place] [address] Result Comment: Unab le to report Performed By: #### 5 7021-8 ####[facility]CLIA [id number] [address] LABCLIA [id number] [place] [address] Platelets (Bld) [#/Vol] 84 10*3/uL Low 150-400 [facility] Comment on above: Order Comment: Speci men Type: BLOOD SPECIMENOrdering Facility: [facility] Address: [address] [place] [address] Performed By: #### 5 7021-8 ####[facility]CLIA [id number] [address] LABCLIA [id number] [place] [address] Platelets Estimate (Bld) [#/Vol] Decreased Normal [facility] Comment on above: Order Comment: Speci men Type: BLOOD SPECIMENOrdering Facility: [facility] Address: [address] [place], [place] [address] Performed By: #### 5 7021-8 ####[facility]CLIA [id number] [address] LABCLIA [id number] [place] [address] RBC (Bld) [#/Vol] 2.82 10*6/uL Low 4.20-6.00 [facility] Comment on above: Order Comment: Speci men Type: BLOOD SPECIMENOrdering Facility: [facility] Address: [address] [place] [address] Performed By: #### 5 7021-8 ####[facility]CLIA [id number] [address] LABCLIA [id number] [place] [address] RED CELL MORPH Reviewed: see result s of individual morphologies Normal [facility] Comment on above: Order Comment: Speci men Type: BLOOD SPECIMENOrdering Facility: [facility] Address: [address] [place] [address] Performed By: #### 5 7021-8 ####[facility]CLIA [id number] [address] LABCLIA [id number] [place] [address] WBC (Bld) [#/Vol] 2.06 10*3/uL Low 3.70-11.00 [facility] Comment on above: Order Comment: Speci men Type: BLOOD SPECIMENOrdering Facility: [facility] Address: [address] [place] [address] Performed By: #### 5 7021-8 ####[facility]CLIA [id number] [address] LABCLIA [id number] [place] [address] CNOVSPon 07-30-2022 CNOVSP Normal [facility] Comprehensive metabolic 2000 panelon 07-30-2022 Albumin [Mass/Vol] 3.9 g/dL Normal 3.9-4.9 [facility] Comment on above: Order Comment: Speci men Type: BLOOD SPECIMENOrdering Facility: [facility] Address: [address] [place], [place] [address] Performed By: #### 2 4323-8 ####[facility] LABCLIA [id number] [place] [address] ALP [Catalytic activity/Vol] 130 U/L High 38-113 [facility] Comment on above: Order Comment: Speci men Type: BLOOD SPECIMENOrdering Facility: [facility] Address: [address] [place] [address] Performed By: #### 2 4323-8 ####[facility] LABCLIA [id number] [place] [address] ALT [Catalytic activity/Vol] 45 U/L Normal 10-54 [facility] Comment on above: Order Comment: Speci men Type: BLOOD SPECIMENOrdering Facility: [facility] Address: [address] [place] [address] Performed By: #### 2 4323-8 ####[facility] LABCLIA [id number] [place] [address] Anion gap [Moles/Vol] 9 mmol/L Normal 9-18 [facility] Comment on above: Order Comment: Speci men Type: BLOOD SPECIMENOrdering Facility: [facility] Address: [address] [place] [address] Performed By: #### 2 4323-8 ####[facility] LABCLIA [id number] [place] [address] AST [Catalytic activity/Vol] 24 U/L Normal 14-40 [facility] Comment on above: Order Comment: Speci men Type: BLOOD SPECIMENOrdering Facility: [facility] Address: [address] [place] [address] Performed By: #### 2 4323-8 ####[facility] LABCLIA [id number] [place] [address] Bilirubin [Mass/Vol] 1.0 mg/dL Normal 0.2-1.3 [facility] Comment on above: Order Comment: Speci men Type: BLOOD SPECIMENOrdering Facility: [facility] Address: [address] [address] Performed By: #### 2 4323-8 ####[facility] LABCLIA [id number] [place] [address] Calcium [Mass/Vol] 9.2 mg/dL Normal 8.5-10.2 [facility] Comment on above: Order Comment: Speci men Type: BLOOD SPECIMENOrdering Facility: [facility] Address: [address] [address] Performed By: #### 2 4323-8 ####[facility] LABCLIA [id number] [place] [address] Chloride [Moles/Vol] 100 mmol/L Normal 97-105 [facility] Comment on above: Order Comment: Speci men Type: BLOOD SPECIMENOrdering Facility: [facility] Address: [address] [address] Performed By: #### 2 4323-8 ####[facility] LABCLIA [id number] [place] [address] CO2 [Moles/Vol] 34 mmol/L High 22-30 [facility] Comment on above: Order Comment: Speci men Type: BLOOD SPECIMENOrdering Facility: [facility] Address: [address] [address] Performed By: #### 2 4323-8 ####[facility] LABCLIA [id number] [place] [address] Creatinine [Mass/Vol] 1.50 mg/dL High 0.73-1.22 [facility] Comment on above: Order Comment: Speci men Type: BLOOD SPECIMENOrdering Facility: [facility] Address: [address] [address] Performed By: #### 2 4323-8 ####[facility] LABCLIA [id number] [place] [address] ESTIMATED GLOMERULAR FILTRATION RATE 46 mL/min/1.73m??? Low >=60 [facility] Comment on above: Order Comment: Davi avendaño Type: BLOOD SPECIMENOrdering Facility: [facility] Address: [address] [place] [address] Result Comment: Faye mated Glomerular Filtration Rate [...] actual GFR. Performed By: #### 2 4323-8 ####[facility] LABCLIA [id number] [place] [address] Glucose [Mass/Vol] 206 mg/dL High 74-99 [facility] Comment on above: Order Comment: Davi avendaño Type: BLOOD SPECIMENOrdering Facility: [facility] Address: [address] [place] [address] Result Comment: The [place] [employer] (ADA) provides guidance for cutoff [...] Standards of Medical Care in Diabetes 2016, [place] [employer]. Diabetes Care. 2016.39(Suppl 1). Performed By: #### 2 4323-8 ####[facility] LABCLIA [id number] [place] [address] Potassium [Moles/Vol] 3.9 mmol/L Normal 3.7-5.1 [facility] Comment on above: Order Comment: Speci men Type: BLOOD SPECIMENOrdering Facility: [facility] Address: [address] [address] Performed By: #### 2 4323-8 ####[facility] LABCLIA [id number] [place] [address] Protein [Mass/Vol] 6.3 g/dL Normal 6.3-8.0 [facility] Comment on above: Order Comment: Speci men Type: BLOOD SPECIMENOrdering Facility: [facility] Address: [address] [address] Performed By: #### 2 4323-8 ####[facility] LABCLIA [id number] [place] [address] Sodium [Moles/Vol] 143 mmol/L Normal 136-144 [facility] Comment on above: Order Comment: Speci men Type: BLOOD SPECIMENOrdering Facility: [facility] Address: [address] [address] Performed By: #### 2 4323-8 ####[facility] LABCLIA [id number] [place] [address] Urea nitrogen [Mass/Vol] 22 mg/dL Normal 9-24 [facility] Comment on above: Order Comment: Speci men Type: BLOOD SPECIMENOrdering Facility: [facility] Address: [address] [place] [address] Performed By: #### 2 4323-8 ####[facility] LABIA [id number] [place] [address] PRBC LEUKOREDUCEDon 07-27-20 ABO and Rh group Nom (Bld) Cross Match Result Compatible Unit Blood Type A Pos Unit Number [id number] Status Information Transfused Product ID Red Blood Cells Product Code [id number] Cross Match Result Compatible Unit Blood Type A Pos Unit Number [id number] Status Information Transfused Product ID Red Blood Cells Product Code C0469A18 Normal [facility] Comment on above: Performed By: #### H H #### [facility] [address] [place] [address] Dr. Benito To [facility] 07-25-2022 CNPN Normal [facility] PRBC LEUKOREDUCEDon 07-25-20 ABO and Rh group Nom (Bld) Cross Match Result Compatible Unit Blood Type A Pos Unit Number [id number] Status Information Transfused Product ID Red Blood Cells Product Code A5175Y61 Cross Match Result Compatible Unit Blood Type A Pos Unit Number [id number] Status Information Transfused Product ID Red Blood Cells Product Code O5250R41 [facility] Comment on above: Performed By: #### P RBC, TNS #### [facility] [address] [place] [address] Dr. Benito To ABO and Rh group Nom (Bld) Cross Match Result Compatible Unit Blood Type O Neg Unit Number [id number] Status Information Transfused Product ID Red Blood Cells Product Code F7730X42 Cross Match Result Compatible Unit Blood Type O Pos Unit Number [id number] Status Information Transfused Product ID Red Blood Cells Product Code Y3250P38 [facility] Comment on above: Performed By: #### T NS, PRBC #### [facility] [address] [place] [address] Dr. Benito To ABO and Rh group Nom (Bld) Cross Match Result Compatible Unit Blood Type A Pos Unit Number [id number] Status Information Transfused Product ID Red Blood Cells Product Code K6480B29 Cross Match Result Compatible Unit Blood Type A Pos Unit Number [id number] Status Information Transfused Product ID Red Blood Cells Product Code V2050B70 [facility] Comment on above: Performed By: #### P RBC, TNS #### [facility] [address] [place] [address] Dr. Benito To PRBC LEUKOREDUCED Cross Match Result Compatible Unit Blood Type A Pos Unit Number [id number] Status Information Transfused Product ID Red Blood Cells Product Code V6640X62 [facility] Comment on above: Performed By: #### T NS, PRBC #### [facility] [address] [place] [address] Dr. Benito To PRBC LEUKOREDUCED Cross Match Result Compatible Unit Blood Type A Pos Unit Number [id number] Status Information Transfused Product ID Red Blood Cells Product Code R4193O48 Normal [facility] Comment on above: Performed By: #### H GBHCT #### [facility] [address] [place] [address] Dr. Benito To CNPNon 07-24-2022 CNPN Normal [facility] HEMOGLOBIN AND HEMATOCRITon 07-24-2022 Hematocrit (Bld) [Volume fraction] 22.2 % Critically low 42.0-54.0 [facility] Comment on above: Performed By: #### T NS, PRBC #### [facility] [address] [place] [address] Dr. Benito To Hemoglobin (Bld) [Mass/Vol] 7.0 g/dL Critically low 14.0-18.0 [facility] Comment on above: Performed By: #### T NS, PRBC #### [facility] [address] [place] [address] Dr. Benito To TYPE AND SCREENon 07-24-2022 TYPE AND SCREEN Negative Normal [facility] Comment on above: Performed By: #### T NS, PRBC #### [facility] [address] [place] [address] Dr. Benito To CBC W Auto Differential pane l (Bld)on 07-23-2022 Anisocytosis Ql (Bld) Present Normal [facility] Comment on above: Order Comment: Speci men Type: BLOOD SPECIMENOrdering Facility: [facility] Address: [address] [place], [place] [address] Performed By: #### 5 7021-8 ####[facility] LABCLIA [id number] [address] LABCLIA [id number] [place] [address] Basophils (Bld) [#/Vol] 0.12 10*3/uL High <0.11 [facility] Comment on above: Order Comment: Speci men Type: BLOOD SPECIMENOrdering Facility: [facility] Address: [address] Performed By: #### 5 7021-8 ####[facility]CLIA [id number] [address] LABCLIA [id number] [place] [address] Basophils/100 WBC (Bld) 6.0 % Normal [facility] Comment on above: Order Comment: Speci men Type: BLOOD SPECIMENOrdering Facility: [facility] Address: [address] [place] [address] Performed By: #### 5 7021-8 ####[facility]CLIA [id number] [address] LABCLIA [id number] [place] [address] Differential cell count method Nom (Bld) Manual Normal [facility] Comment on above: Order Comment: Speci men Type: BLOOD SPECIMENOrdering Facility: [facility] Address: [address] [place] [address] Performed By: #### 5 7021-8 ####[facility] LABCLIA [id number] [address] LABCLIA [id number] [place] [address] Eosinophils (Bld) [#/Vol] 0.02 10*3/uL Normal <0.46 [facility] Comment on above: Order Comment: Speci men Type: BLOOD SPECIMENOrdering Facility: [facility] Address: [address] [place], [place] [address] Performed By: #### 5 7021-8 ####[facility]CLIA [id number] [address] LABCLIA [id number] [place] [address] Eosinophils/100 WBC (Bld) 1.0 % Normal [facility] Comment on above: Order Comment: Speci men Type: BLOOD SPECIMENOrdering Facility: [facility] Address: [address] [place] [address] Performed By: #### 5 7021-8 ####[facility] LABCLIA [id number] [address] LABCLIA [id number] [place] [id number] Erythrocyte distribution width (RBC) [Ratio] 16.6 % High 11.5-15.0 [facility] Comment on above: Order Comment: Speci men Type: BLOOD SPECIMENOrdering Facility: [facility] Address: [address] [place] [address] Performed By: #### 5 7021-8 ####[facility] LABCLIA [id number] [address] LABCLIA [id number] [place] [id number] Giant platelets LM Ql (Bld) Present Normal [facility] Comment on above: Order Comment: Speci men Type: BLOOD SPECIMENOrdering Facility: [facility] Address: [address] [place] [address] Performed By: #### 5 7021-8 ####[facility] LABCLIA [id number] [address] LABCLIA [id number] [place] [id number] Hematocrit (Bld) [Volume fraction] 23.4 % Low 39.0-51.0 [facility] Comment on above: Order Comment: Speci men Type: BLOOD SPECIMENOrdering Facility: [facility] Address: [address] [place] [address] Performed By: #### 5 7021-8 ####[facility] LABCLIA [id number] [address] LABCLIA [id number] [place] [address] Hemoglobin (Bld) [Mass/Vol] 7.2 g/dL Low 13.0-17.0 [facility] Comment on above: Order Comment: Speci men Type: BLOOD SPECIMENOrdering Facility: [facility] Address: [address] [place] [address] Performed By: #### 5 7021-8 ####[facility] LABCLIA [id number] [address] LABCLIA [id number] [place] [address] Lymphocytes (Bld) [#/Vol] 0.88 10*3/uL Low 1.00-4.00 [facility] Comment on above: Order Comment: Speci men Type: BLOOD SPECIMENOrdering Facility: [facility] Address: [address] [place] [address] Performed By: #### 5 7021-8 ####[facility] LABCLIA [id number] [address] LABCLIA [id number] [place] [address] Lymphocytes/100 WBC (Bld) 44.0 % Normal [facility] Comment on above: Order Comment: Speci men Type: BLOOD SPECIMENOrdering Facility: [facility] Address: [address] [place] [address] Performed By: #### 5 7021-8 ####[facility] LABCLIA [id number] [address] LABCLIA [id number] [place] [address] MCH (RBC) [Entitic mass] 30.3 pg Normal 26.0-34.0 [facility] Comment on above: Order Comment: Speci men Type: BLOOD SPECIMENOrdering Facility: [facility] Address: [address] [place] [address] Performed By: #### 5 7021-8 ####[facility] LABCLIA [id number] [address] LABCLIA [id number] [place] [address] MCHC (RBC) [Mass/Vol] 30.8 g/dL Normal 30.5-36.0 [facility] Comment on above: Order Comment: Speci men Type: BLOOD SPECIMENOrdering Facility: [facility] Address: [address] [place] [address] Performed By: #### 5 7021-8 ####[facility] LABCLIA [id number] [address] LABCLIA [id number] [place] [address] MCV (RBC) [Entitic vol] 98.3 fL Normal 80.0-100.0 [facility] Comment on above: Order Comment: Speci men Type: BLOOD SPECIMENOrdering Facility: [facility] Address: [address] [place] [address] Performed By: #### 5 7021-8 ####[facility] LABCLIA [id number] [address] LABCLIA [id number] [place] [address] Metamyelocytes/100 WBC (Bld) 1.0 % Normal [facility] Comment on above: Order Comment: Speci men Type: BLOOD SPECIMENOrdering Facility: [facility] Address: [address] [place] [address] Performed By: #### 5 7021-8 ####[facility] LABCLIA [id number] [address] LABCLIA [id number] [place] [address] Monocytes (Bld) [#/Vol] 0.24 10*3/uL Normal <0.87 [facility] Comment on above: Order Comment: Speci men Type: BLOOD SPECIMENOrdering Facility: [facility] Address: [address] [place] [address] Performed By: #### 5 7021-8 ####[facility] LABCLIA [id number] [address] LABCLIA [id number] [place] [address] Monocytes/100 WBC (Bld) 12.0 % Normal [facility] Comment on above: Order Comment: Speci men Type: BLOOD SPECIMENOrdering Facility: [facility] Address: [address] [place] [address] Performed By: #### 5 7021-8 ####[facility] LABCLIA [id number] [address] LABCLIA [id number] [place] [address] Neutrophils (Bld) [#/Vol] 0.72 10*3/uL Low 1.45-7.50 [facility] Comment on above: Order Comment: Speci men Type: BLOOD SPECIMENOrdering Facility: [facility] Address: [address] [place], [place] [address] Performed By: #### 5 7021-8 ####[facility] LABCLIA [id number] [address] LABCLIA [id number] [place] [address] Neutrophils/100 WBC (Bld) 36.0 % Normal [facility] Comment on above: Order Comment: Speci men Type: BLOOD SPECIMENOrdering Facility: [facility] Address: [address] [place] [address] Performed By: #### 5 7021-8 ####[facility] LABCLIA [id number] [address] LABCLIA [id number] [place] [address] Nucleated RBC (Bld) [#/Vol] 10*3/uL Normal <0.01 [facility] Comment on above: Order Comment: Speci men Type: BLOOD SPECIMENOrdering Facility: [facility] Address: [address] [place] [address] Result Comment: This result was previously suppressed from the chart. Performed By: #### 5 7021-8 ####[facility] LABCLIA [id number] [address] LABCLIA [id number] [place] [address] Nucleated RBC/100 WBC (Bld) [Ratio] 0.0 /100 WBC Normal [facility] Comment on above: Order Comment: Speci men Type: BLOOD SPECIMENOrdering Facility: [facility] Address: [address] [place] [address] Performed By: #### 5 7021-8 ####[facility] LABCLIA [id number] [address] LABCLIA [id number] [place] [address] Ovalocytes LM Ql (Bld) Few Normal [facility] Comment on above: Order Comment: Speci men Type: BLOOD SPECIMENOrdering Facility: [facility] Address: [address] [place] [address] Performed By: #### 5 7021-8 ####[facility] LABCLIA [id number] [address] LABCLIA [id number] [place] [address] Platelet mean volume (Bld) [Entitic vol] Normal [facility] Comment on above: Order Comment: Speci men Type: BLOOD SPECIMENOrdering Facility: [facility] Address: [address] [place] [address] Result Comment: Unab le to report Performed By: #### 5 7021-8 ####[facility] LABCLIA [id number] [address] LABCLIA [id number] [place] [address] Platelets (Bld) [#/Vol] 83 10*3/uL Low 150-400 [facility] Comment on above: Order Comment: Speci men Type: BLOOD SPECIMENOrdering Facility: [facility] Address: [address] [place] [address] Performed By: #### 5 7021-8 ####[facility] LABCLIA [id number] [address] LABCLIA [id number] [place] [address] Platelets Estimate (Bld) [#/Vol] Decreased Normal [facility] Comment on above: Order Comment: Speci men Type: BLOOD SPECIMENOrdering Facility: [facility] Address: [address] [place] [address] Performed By: #### 5 7021-8 ####[facility] LABCLIA [id number] [address] LABCLIA [id number] [place] [address] RBC (Bld) [#/Vol] 2.38 10*6/uL Low 4.20-6.00 [facility] Comment on above: Order Comment: Speci men Type: BLOOD SPECIMENOrdering Facility: [facility] Address: [address] [place] [address] Performed By: #### 5 7021-8 ####[facility] LABCLIA [id number] [address] LABCLIA [id number] [place] [address] RED CELL MORPH Reviewed: see result s of individual morphologies Normal [facility] Comment on above: Order Comment: Speci men Type: BLOOD SPECIMENOrdering Facility: [facility] [facility] Address: [address] [place] [address] Performed By: #### 5 7021-8 ####[facility] LABCLIA [id number] [address] LABCLIA [id number] [place] [address] WBC (Bld) [#/Vol] 1.99 10*3/uL Low 3.70-11.00 [facility] Comment on above: Order Comment: Speci men Type: BLOOD SPECIMENOrdering Facility: [facility] Address: [address] [place] [address] Result Comment: Resu lts checked and verified.No clot detected. Performed By: #### 5 7021-8 ####[facility] LABCLIA [id number] [address] LABCLIA [id number] [place] [address] WBC Left Shift Ql (Bld) Present Normal [facility] Comment on above: Order Comment: Speci men Type: BLOOD SPECIMENOrdering Facility: [facility] Address: [address] [place] [address] Performed By: #### 5 7021-8 ####[facility] LABCLIA [id number] [facility] [id number] [address] [facility] LABCLIA [id number] [place] [address] CNOVSPon 07-23-2022 CNOVSP Normal [facility] CNPNon 07-23-2022 CNPN Normal [facility] Comprehensive metabolic 2000 panelon 07-23-2022 Albumin [Mass/Vol] 3.8 g/dL Low 3.9-4.9 [facility] Comment on above: Order Comment: Speci men Type: BLOOD SPECIMENOrdering Facility: [facility] Address: [address] [address] Performed By: #### 2 4323-8 ####[facility] LABCLIA [id number] [place] [address] ALP [Catalytic activity/Vol] 117 U/L High 38-113 [facility] Comment on above: Order Comment: Speci men Type: BLOOD SPECIMENOrdering Facility: [facility] Address: [address] [address] Performed By: #### 2 4323-8 ####[facility] LABCLIA [id number] [place] [address] ALT [Catalytic activity/Vol] 36 U/L Normal 10-54 [facility] Comment on above: Order Comment: Speci men Type: BLOOD SPECIMENOrdering Facility: [facility] Address: [address] [address] Performed By: #### 2 4323-8 ####[facility] LABCLIA [id number] [place] [address] Anion gap [Moles/Vol] 9 mmol/L Normal 9-18 [facility] Comment on above: Order Comment: Speci men Type: BLOOD SPECIMENOrdering Facility: [facility] Address: [address] [address] Performed By: #### 2 4323-8 ####[facility] LABCLIA [id number] [place] [address] AST [Catalytic activity/Vol] 16 U/L Normal 14-40 [facility] Comment on above: Order Comment: Speci men Type: BLOOD SPECIMENOrdering Facility: [facility] Address: [address] [place] [address] Performed By: #### 2 4323-8 ####[facility] LABCLIA [id number] [place] [address] Bilirubin [Mass/Vol] 1.1 mg/dL Normal 0.2-1.3 [facility] Comment on above: Order Comment: Speci men Type: BLOOD SPECIMENOrdering Facility: [facility] Address: [address] [place] [address] Performed By: #### 2 4323-8 ####[facility] LABCLIA [id number] [place] [address] Calcium [Mass/Vol] 8.9 mg/dL Normal 8.5-10.2 [facility] Comment on above: Order Comment: Speci men Type: BLOOD SPECIMENOrdering Facility: [facility] Address: [address] [place] [address] Performed By: #### 2 4323-8 ####[facility] LABCLIA [id number] [place] [address] Chloride [Moles/Vol] 100 mmol/L Normal 97-105 [facility] Comment on above: Order Comment: Speci men Type: BLOOD SPECIMENOrdering Facility: [facility] Address: [address] [place] [address] Performed By: #### 2 4323-8 ####[facility] LABCLIA [id number] [place] [address] CO2 [Moles/Vol] 32 mmol/L High 22-30 [facility] Comment on above: Order Comment: Speci men Type: BLOOD SPECIMENOrdering Facility: [facility] Address: [address] Performed By: #### 2 4323-8 ####[facility] LABCLIA [id number] [place] [address] Creatinine [Mass/Vol] 1.68 mg/dL High 0.73-1.22 [facility] Comment on above: Order Comment: Speci men Type: BLOOD SPECIMENOrdering Facility: [facility] Address: [address] [address] Performed By: #### 2 4323-8 ####[facility] LABCLIA [id number] [place] [address] ESTIMATED GLOMERULAR FILTRATION RATE 40 mL/min/1.73m??? Low >=60 [facility] Comment on above: Order Comment: Speci men Type: BLOOD SPECIMENOrdering Facility: [facility] Address: [address] [address] Result Comment: Faye mated Glomerular Filtration Rate [...] actual GFR. Performed By: #### 2 4323-8 ####[facility] LABCLIA [id number] [place] [address] Glucose [Mass/Vol] 143 mg/dL High 74-99 [facility] Comment on above: Order Comment: Speci men Type: BLOOD SPECIMENOrdering Facility: [facility] Address: [address] [address] Result Comment: The [place] Diabetes Association (ADA) provides guidance for cutoff [...] Standards of Medical Care in Diabetes 2016, [place] [employer]. Diabetes Care. 2016.39(Suppl 1). Performed By: #### 2 4323-8 ####[facility] LABCLIA [id number] [place] [address] Potassium [Moles/Vol] 4.3 mmol/L Normal 3.7-5.1 [facility] Comment on above: Order Comment: Speci men Type: BLOOD SPECIMENOrdering Facility: [facility] Address: [address] [place] [address] Performed By: #### 2 4323-8 ####[facility] LABCLIA [id number] [place] [address] Protein [Mass/Vol] 6.1 g/dL Low 6.3-8.0 [facility] Comment on above: Order Comment: Speci men Type: BLOOD SPECIMENOrdering Facility: [facility] Address: [address] [address] Performed By: #### 2 4323-8 ####[facility] LABCLIA [id number] [place] [address] Sodium [Moles/Vol] 141 mmol/L Normal 136-144 [facility] Comment on above: Order Comment: Speci men Type: BLOOD SPECIMENOrdering Facility: [facility] Address: [address] [address] Performed By: #### 2 4323-8 ####[facility] LABCLIA [id number] [place] [address] Urea nitrogen [Mass/Vol] 30 mg/dL High 9-24 [facility] Comment on above: Order Comment: Speci men Type: BLOOD SPECIMENOrdering Facility: [facility] Address: [address] [address] Performed By: #### 2 4323-8 ####[facility] LABCLIA [id number] [place] [address] CNPNon 07-18-2022 CNPN Normal [facility] CNOVSPon 07-16-2022 CNOVSP Normal [facility] CNPNon 07-16-2022 CNPN Normal [facility] HEMOGLOBIN AND HEMATOCRITon 07-16-2022 Hematocrit (Bld) [Volume fraction] 24.9 % Critically low 42.0-54.0 [facility] Comment on above: Performed By: #### H H #### [facility] [address] [place] [address] Dr. Benito To Hemoglobin (Bld) [Mass/Vol] 7.8 g/dL Critically low 14.0-18.0 [facility] Comment on above: Performed By: #### H H #### [facility] [address] [place] [address] Dr. Benito To TYPE AND SCREENon 07-16-2022 TYPE AND SCREEN Negative Normal [facility] Comment on above: Performed By: #### H GBHCT #### [facility] [address] [place] [address] Dr. Benito To CBC W Auto Differential pane l (Bld)on 07-15-2022 Anisocytosis Ql (Bld) Present Normal [facility] Comment on above: Order Comment: Speci men Type: BLOOD SPECIMENOrdering Facility: [facility] Address: [address] [place], [place] [address] Performed By: #### 5 7021-8 ####[facility] LABCLIA [id number] [facility] [id number] [id number] [facility] LABCLIA [id number] [place] [address] Basophils (Bld) [#/Vol] 0.08 10*3/uL Normal <0.11 [facility] Comment on above: Order Comment: Speci men Type: BLOOD SPECIMENOrdering Facility: [facility] Address: [address] [place] [address] Performed By: #### 5 7021-8 ####[facility] LABCLIA [id number] [address] LABCLIA [id number] [place] [address] Basophils/100 WBC (Bld) 5.0 % Normal [facility] Comment on above: Order Comment: Speci men Type: BLOOD SPECIMENOrdering Facility: [facility] Address: [address] Performed By: #### 5 7021-8 ####[facility] LABCLIA [id number] [address] LABCLIA [id number] [place] [address] Differential cell count method Nom (Bld) Manual Normal [facility] Comment on above: Order Comment: Speci men Type: BLOOD SPECIMENOrdering Facility: [facility] Address: [address] Performed By: #### 5 7021-8 ####[facility] LABCLIA [id number] [address] LABCLIA [id number] [place] [address] Eosinophils (Bld) [#/Vol] 0.02 10*3/uL Normal <0.46 [facility] Comment on above: Order Comment: Speci men Type: BLOOD SPECIMENOrdering Facility: [facility] Address: [address] Performed By: #### 5 7021-8 ####[facility] LABCLIA [id number] [address] LABCLIA [id number] [place] [address] Eosinophils/100 WBC (Bld) 1.0 % Normal [facility] Comment on above: Order Comment: Speci men Type: BLOOD SPECIMENOrdering Facility: [facility] Address: [address] [place] [address] Performed By: #### 5 7021-8 ####[facility] LABCLIA [id number] [address] LABCLIA [id number] [place] [id number] Erythrocyte distribution width (RBC) [Ratio] 16.9 % High 11.5-15.0 [facility] Comment on above: Order Comment: Speci men Type: BLOOD SPECIMENOrdering Facility: [facility] Address: [address] [place] [address] Performed By: #### 5 7021-8 ####[facility] LABCLIA [id number] [address] LABCLIA [id number] [place] [address] Giant platelets LM Ql (Bld) Occasional Normal [facility] Comment on above: Order Comment: Speci men Type: BLOOD SPECIMENOrdering Facility: [facility] Address: [address] [place] [address] Performed By: #### 5 7021-8 ####[facility] LABCLIA [id number] [address] LABCLIA [id number] [place] [id number] Hematocrit (Bld) [Volume fraction] 25.1 % Low 39.0-51.0 [facility] Comment on above: Order Comment: Speci men Type: BLOOD SPECIMENOrdering Facility: [facility] Address: [address] [place] [address] Performed By: #### 5 7021-8 ####[facility] LABCLIA [id number] [address] LABCLIA [id number] [place] [address] Hemoglobin (Bld) [Mass/Vol] 7.9 g/dL Low 13.0-17.0 [facility] Comment on above: Order Comment: Speci men Type: BLOOD SPECIMENOrdering Facility: [facility] Address: [address] [address] Performed By: #### 5 7021-8 ####[facility] LABCLIA [id number] [address] LABCLIA [id number] [place] [address] Lymphocytes (Bld) [#/Vol] 0.66 10*3/uL Low 1.00-4.00 [facility] Comment on above: Order Comment: Speci men Type: BLOOD SPECIMENOrdering Facility: [facility] Address: [address] [place] [address] Performed By: #### 5 7021-8 ####[facility] LABCLIA [id number] [address] LABCLIA [id number] [place] [address] Lymphocytes/100 WBC (Bld) 40.0 % Normal [facility] Comment on above: Order Comment: Speci men Type: BLOOD SPECIMENOrdering Facility: [facility] Address: [address] [place] [address] Performed By: #### 5 7021-8 ####[facility] LABCLIA [id number] [address] LABCLIA [id number] [place] [address] MCH (RBC) [Entitic mass] 30.9 pg Normal 26.0-34.0 [facility] Comment on above: Order Comment: Speci men Type: BLOOD SPECIMENOrdering Facility: [facility] Address: [address] [place] [address] Performed By: #### 5 7021-8 ####[facility] LABCLIA [id number] [address] LABIA [id number] [place] [address] MCHC (RBC) [Mass/Vol] 31.5 g/dL Normal 30.5-36.0 [facility] Comment on above: Order Comment: Speci men Type: BLOOD SPECIMENOrdering Facility: [facility] Address: [address] [place] [address] Performed By: #### 5 7021-8 ####[facility] LABIA [id number] [address] LABCLIA [id number] [place] [address] MCV (RBC) [Entitic vol] 98.0 fL Normal 80.0-100.0 [facility] Comment on above: Order Comment: Speci men Type: BLOOD SPECIMENOrdering Facility: [facility] Address: [address] [place], [place] [address] Performed By: #### 5 7021-8 ####[facility] LABCLIA [id number] [address] LABIA [id number] [place] [address] Monocytes (Bld) [#/Vol] 0.17 10*3/uL Normal <0.87 [facility] Comment on above: Order Comment: Speci men Type: BLOOD SPECIMENOrdering Facility: [facility] Address: [address] [place] [address] Performed By: #### 5 7021-8 ####[facility] LABCLIA [id number] [address] LABCLIA [id number] [place] [address] Monocytes/100 WBC (Bld) 10.0 % Normal [facility] Comment on above: Order Comment: Speci men Type: BLOOD SPECIMENOrdering Facility: [facility] Address: [address] [place] [address] Performed By: #### 5 7021-8 ####[facility] LABCLIA [id number] [address] LABCLIA [id number] [place] [address] Neutrophils (Bld) [#/Vol] 0.73 10*3/uL Low 1.45-7.50 [facility] Comment on above: Order Comment: Speci men Type: BLOOD SPECIMENOrdering Facility: [facility] Address: [address] [place], [place] [address] Performed By: #### 5 7021-8 ####[facility] LABCLIA [id number] [address] LABCLIA [id number] [place] [address] Neutrophils/100 WBC (Bld) 44.0 % Normal [facility] Comment on above: Order Comment: Speci men Type: BLOOD SPECIMENOrdering Facility: [facility] Address: [address] [place] [address] Performed By: #### 5 7021-8 ####[facility] LABCLIA [id number] [address] LABCLIA [id number] [place] [address] Nucleated RBC (Bld) [#/Vol] 10*3/uL Normal <0.01 [facility] Comment on above: Order Comment: Speci men Type: BLOOD SPECIMENOrdering Facility: [facility] Address: [address] [place] [address] Result Comment: This result was previously suppressed from the chart. Performed By: #### 5 7021-8 ####[facility] LABCLIA [id number] [address] LABCLIA [id number] [place] [address] Nucleated RBC/100 WBC (Bld) [Ratio] 0.0 /100 WBC Normal [facility] Comment on above: Order Comment: Speci men Type: BLOOD SPECIMENOrdering Facility: [facility] Address: [address] [place] [address] Performed By: #### 5 7021-8 ####[facility] LABCLIA [id number] [address] LABCLIA [id number] [place] [address] Ovalocytes LM Ql (Bld) Few Normal [facility] Comment on above: Order Comment: Speci men Type: BLOOD SPECIMENOrdering Facility: [facility] Address: [address] [place] [address] Performed By: #### 5 7021-8 ####[facility] LABCLIA [id number] [address] LABCLIA [id number] [place] [address] Platelet mean volume (Bld) [Entitic vol] Normal [facility] Comment on above: Order Comment: Speci men Type: BLOOD SPECIMENOrdering Facility: [facility] Address: [address] [place] [address] Result Comment: Unab le to Report. Performed By: #### 5 7021-8 ####[facility] LABCLIA [id number] [id number] [place] [address] LABCLIA [id number] [place] [address] Platelets (Bld) [#/Vol] 65 10*3/uL Low 150-400 [facility] Comment on above: Order Comment: Speci men Type: BLOOD SPECIMENOrdering Facility: [facility] Address: [address] [place] [address] Performed By: #### 5 7021-8 ####[facility] LABCLIA [id number] [address] LABCLIA [id number] [place] [address] Platelets Estimate (Bld) [#/Vol] Decreased Normal [facility] Comment on above: Order Comment: Speci men Type: BLOOD SPECIMENOrdering Facility: [facility] Address: [address] [place], [place] [address] Performed By: #### 5 7021-8 ####[facility] LABCLIA [id number] [address] LABCLIA [id number] [place] [address] RBC (Bld) [#/Vol] 2.56 10*6/uL Low 4.20-6.00 [facility] Comment on above: Order Comment: Speci men Type: BLOOD SPECIMENOrdering Facility: [facility] Address: [address] [place] [address] Performed By: #### 5 7021-8 ####[facility] LABCLIA [id number] [address] LABCLIA [id number] [place] [address] RED CELL MORPH Reviewed: see result s of individual morphologies Normal [facility] Comment on above: Order Comment: Speci men Type: BLOOD SPECIMENOrdering Facility: [facility] Address: [address] [address] Performed By: #### 5 7021-8 ####[facility] LABCLIA [id number] [place] [id number] [facility] LABCLIA [id number] [place] [address] WBC (Bld) [#/Vol] 1.65 10*3/uL Low 3.70-11.00 [facility] Comment on above: Order Comment: Speci men Type: BLOOD SPECIMENOrdering Facility: [facility] Address: [address] [place] [address] Performed By: #### 5 7021-8 ####[facility] LABCLIA [id number] [address] LABCLIA [id number] [place] [address] CNOVSPon 07-15-2022 CNOVSP Normal [facility] CNPNon 07-15-2022 CNPN Normal [facility] Comprehensive metabolic 2000 panelon 07-15-2022 Albumin [Mass/Vol] 3.8 g/dL Low 3.9-4.9 [facility] Comment on above: Order Comment: Speci men Type: BLOOD SPECIMENOrdering Facility: [facility] Address: [address] Performed By: #### 2 4323-8, 2531-0 ####[facility] LABIA [id number] [place] [address] ALP [Catalytic activity/Vol] 114 U/L High 38-113 [facility] Comment on above: Order Comment: Speci men Type: BLOOD SPECIMENOrdering Facility: [facility] Address: [address] Performed By: #### 2 4323-8, 2532-0 ####[facility] LABCLIA [id number] [place] [address] ALT [Catalytic activity/Vol] 39 U/L Normal 10-54 [facility] Comment on above: Order Comment: Speci men Type: BLOOD SPECIMENOrdering Facility: [facility] Address: [address] [place] [address] Performed By: #### 2 4323-8, 2531-0 ####[facility] LABCLIA [id number] [place] [address] Anion gap [Moles/Vol] 10 mmol/L Normal 9-18 [facility] Comment on above: Order Comment: Speci men Type: BLOOD SPECIMENOrdering Facility: [facility] Address: [address] [place] [address] Performed By: #### 2 4328, 2531-0 ####[facility] LABIA [id number] [place] [address] AST [Catalytic activity/Vol] 18 U/L Normal 14-40 [facility] Comment on above: Order Comment: Speci men Type: BLOOD SPECIMENOrdering Facility: [facility] Address: [address] [place] [address] Performed By: #### 2 4328, 2531-0 ####[facility] LABCLIA [id number] [place] [address] Bilirubin [Mass/Vol] 0.9 mg/dL Normal 0.2-1.3 [facility] Comment on above: Order Comment: Speci men Type: BLOOD SPECIMENOrdering Facility: [facility] Address: [address] [place] [address] Performed By: #### 2 4323-8, 2531-0 ####[facility] LABCLIA [id number] [place] [address] Calcium [Mass/Vol] 9.0 mg/dL Normal 8.5-10.2 [facility] Comment on above: Order Comment: Speci men Type: BLOOD SPECIMENOrdering Facility: [facility] Address: [address] [place] [address] Performed By: #### 2 4323-8, 2532-0 ####[facility] LABCLIA [id number] [place] [address] Chloride [Moles/Vol] 104 mmol/L Normal 97-105 [facility] Comment on above: Order Comment: Speci men Type: BLOOD SPECIMENOrdering Facility: [facility] Address: [address] [place] [address] Performed By: #### 2 4323-8, 2531-0 ####[facility] LABCLIA [id number] [place] [address] CO2 [Moles/Vol] 32 mmol/L High 22-30 [facility] Comment on above: Order Comment: Speci men Type: BLOOD SPECIMENOrdering Facility: [facility] Address: [address] [place] [address] Performed By: #### 2 4323-8, 2531-0 ####[facility] LABCLIA [id number] [place] [address] Creatinine [Mass/Vol] 1.56 mg/dL High 0.73-1.22 [facility] Comment on above: Order Comment: Speci men Type: BLOOD SPECIMENOrdering Facility: [facility] Address: [address] [place] [address] Performed By: #### 2 4323-8, 253-0 ####[facility] LABCLIA [id number] [place] [address] ESTIMATED GLOMERULAR FILTRATION RATE 44 mL/min/1.73m??? Low >=60 [facility] Comment on above: Order Comment: Speci men Type: BLOOD SPECIMENOrdering Facility: [facility] Address: [address] [place] [address] Result Comment: Faye mated Glomerular Filtration Rate [...] GFR. Performed By: #### 2 4323-8, 2531-0 ####[facility] LABIA [id number] [place] [address] Glucose [Mass/Vol] 147 mg/dL High 74-99 [facility] Comment on above: Order Comment: Davi avendaño Type: BLOOD SPECIMENOrdering Facility: [facility] Address: [address] [place] [address] Result Comment: The [place] [employer] (ADA) provides guidance for cutoff [...] Standards of Medical Care in Diabetes 2016, [place] [employer]. Diabetes Care. 2016.39(Suppl 1). Performed By: #### 2 43238, 0 ####[facility] LABIA [id number] [place] [address] Potassium [Moles/Vol] 4.1 mmol/L Normal 3.7-5.1 [facility] Comment on above: Order Comment: Davi avendaño Type: BLOOD SPECIMENOrdering Facility: [facility] Address: [address] [phone] Performed By: #### 2 4323-8, 2531-0 ####[facility] LABCLIA [id number] [place] [address] Protein [Mass/Vol] 6.3 g/dL Normal 6.3-8.0 [facility] Comment on above: Order Comment: Speci men Type: BLOOD SPECIMENOrdering Facility: [facility] Address: [address] [place] [address] Performed By: #### 2 4323-8, 2-0 ####[facility] LABCLIA [id number] [place] [address] Sodium [Moles/Vol] 146 mmol/L High 136-144 [facility] Comment on above: Order Comment: Speci men Type: BLOOD SPECIMENOrdering Facility: [facility] Address: [address] [place] [address] Performed By: #### 2 4323-8, 2531-0 ####[facility] LABCLIA [id number] [place] [address] Urea nitrogen [Mass/Vol] 24 mg/dL Normal 9-24 [facility] Comment on above: Order Comment: Speci men Type: BLOOD SPECIMENOrdering Facility: [facility] Address: [address] [place] [address] Performed By: #### 2 4323-8, 2531-0 ####[facility] LABCLIA [id number] [place] [address] [facility] 07-15-2022 LDH [Catalytic activity/Vol] 203 U/L Normal 135-225 [facility] Comment on above: Order Comment: Speci men Type: BLOOD SPECIMENOrdering Facility: [facility] Address: [address] [place] [address] Result Comment: Hemo lysis present. The origin [...] indicated. Performed By: #### 2 4323-8, 2532-0 ####[facility] LABCLIA [id number] [place] [address] CNPNon 07-11-2022 CNPN Normal [facility] TYPE AND SCREENon 07-09-2022 TYPE AND SCREEN Negative Normal [facility] Comment on above: Performed By: #### P RBC, TNS #### [facility] [address] [place], [place] [address] Dr. Benito To CBC W Auto Differential pane l (Bld)on 07-08-2022 Anisocytosis Ql (Bld) Present Normal [facility] Comment on above: Order Comment: Speci men Type: BLOOD SPECIMENOrdering Facility: [facility] Address: [address] [place] [address] Performed By: #### 5 7021-8 ####[facility] LABCLIA [id number] [address] LABCLIA [id number] [place] [address] Basophils (Bld) [#/Vol] 0.10 10*3/uL Normal <0.11 [facility] Comment on above: Order Comment: Speci men Type: BLOOD SPECIMENOrdering Facility: [facility] Address: [address] [place] [address] Performed By: #### 5 7021-8 ####[facility] LABCLIA [id number] [address] LABCLIA [id number] [place] [address] Basophils/100 WBC (Bld) 6.0 % Normal [facility] Comment on above: Order Comment: Speci men Type: BLOOD SPECIMENOrdering Facility: [facility] Address: [address] [place] [address] Performed By: #### 5 7021-8 ####[facility] LABCLIA [id number] [address] [place] [id number] [facility] LABCLIA [id number] [place] [address] Differential cell count method Nom (Bld) Manual Normal [facility] Comment on above: Order Comment: Speci men Type: BLOOD SPECIMENOrdering Facility: [facility] Address: [address] [place] [address] Performed By: #### 5 7021-8 ####[facility] LABCLIA [id number] [address] LABCLIA [id number] [place] [address] Eosinophils (Bld) [#/Vol] 0.05 10*3/uL Normal <0.46 [facility] Comment on above: Order Comment: Speci men Type: BLOOD SPECIMENOrdering Facility: [facility] Address: [address] [place] [address] Performed By: #### 5 7021-8 ####[facility] LABCLIA [id number] [address] LABCLIA [id number] [place] [address] Eosinophils/100 WBC (Bld) 3.0 % Normal [facility] Comment on above: Order Comment: Speci men Type: BLOOD SPECIMENOrdering Facility: [facility] Address: [address] [place], [place] [address] Performed By: #### 5 7021-8 ####[facility] LABCLIA [id number] [address] LABCLIA [id number] [place] [address] Erythrocyte distribution width (RBC) [Ratio] 18.2 % High 11.5-15.0 [facility] Comment on above: Order Comment: Speci men Type: BLOOD SPECIMENOrdering Facility: [facility] Address: [address] [address] Performed By: #### 5 7021-8 ####[facility] LABCLIA [id number] [address] LABCLIA [id number] [place] [address] Hematocrit (Bld) [Volume fraction] 23.2 % Low 39.0-51.0 [facility] Comment on above: Order Comment: Speci men Type: BLOOD SPECIMENOrdering Facility: [facility] Address: [address] [place] [address] Performed By: #### 5 7021-8 ####[facility] LABCLIA [id number] [address] LABCLIA [id number] [place] [id number] Hemoglobin (Bld) [Mass/Vol] 7.4 g/dL Low 13.0-17.0 [facility] Comment on above: Order Comment: Speci men Type: BLOOD SPECIMENOrdering Facility: [facility] Address: [address] [place] [address] Performed By: #### 5 7021-8 ####[facility] LABCLIA [id number] [address] LABCLIA [id number] [place] [id number] Lymphocytes (Bld) [#/Vol] 0.69 10*3/uL Low 1.00-4.00 [facility] Comment on above: Order Comment: Speci men Type: BLOOD SPECIMENOrdering Facility: [facility] Address: [address] [place] [address] Performed By: #### 5 7021-8 ####[facility] LABCLIA [id number] [address] LABCLIA [id number] [place] [address] Lymphocytes/100 WBC (Bld) 42.0 % Normal [facility] Comment on above: Order Comment: Speci men Type: BLOOD SPECIMENOrdering Facility: [facility] Address: [address] [place] [address] Performed By: #### 5 7021-8 ####[facility] LABCLIA [id number] [address] LABCLIA [id number] [place] [address] MCH (RBC) [Entitic mass] 31.8 pg Normal 26.0-34.0 [facility] Comment on above: Order Comment: Speci men Type: BLOOD SPECIMENOrdering Facility: [facility] Address: [address] [place] [address] Performed By: #### 5 7021-8 ####[facility] LABCLIA [id number] [address] LABCLIA [id number] [place] [address] MCHC (RBC) [Mass/Vol] 31.9 g/dL Normal 30.5-36.0 [facility] Comment on above: Order Comment: Speci men Type: BLOOD SPECIMENOrdering Facility: [facility] Address: [address] [place], [place] [address] Performed By: #### 5 7021-8 ####[facility] LABCLIA [id number] [address] LABCLIA [id number] [place] [address] MCV (RBC) [Entitic vol] 99.6 fL Normal 80.0-100.0 [facility] Comment on above: Order Comment: Speci men Type: BLOOD SPECIMENOrdering Facility: [facility] Address: [address] [address] Performed By: #### 5 7021-8 ####[facility] LABCLIA [id number] [address] LABCLIA [id number] [place] [address] Monocytes (Bld) [#/Vol] 0.15 10*3/uL Normal <0.87 [facility] Comment on above: Order Comment: Speci men Type: BLOOD SPECIMENOrdering Facility: [facility] Address: [address] [place] [address] Performed By: #### 5 7021-8 ####[facility] LABCLIA [id number] [address] LABCLIA [id number] [place] [address] Monocytes/100 WBC (Bld) 9.0 % Normal [facility] Comment on above: Order Comment: Speci men Type: BLOOD SPECIMENOrdering Facility: [facility] Address: [address] [place] [address] Performed By: #### 5 7021-8 ####[facility] LABCLIA [id number] [address] LABCLIA [id number] [place] [address] Neutrophils (Bld) [#/Vol] 0.66 10*3/uL Low 1.45-7.50 [facility] Comment on above: Order Comment: Speci men Type: BLOOD SPECIMENOrdering Facility: [facility] Address: [address] [place] [address] Performed By: #### 5 7021-8 ####[facility] LABCLIA [id number] [facility] [address] LABCLIA [id number] [place] [address] Neutrophils/100 WBC (Bld) 40.0 % Normal [facility] Comment on above: Order Comment: Speci men Type: BLOOD SPECIMENOrdering Facility: [facility] Address: [address] [place] [address] Performed By: #### 5 7021-8 ####[facility] LABCLIA [id number] [address] LABCLIA [id number] [place] [address] Nucleated RBC (Bld) [#/Vol] 10*3/uL Normal <0.01 [facility] Comment on above: Order Comment: Speci men Type: BLOOD SPECIMENOrdering Facility: [facility] Address: [address] [place] [address] Result Comment: This result was previously suppressed from the chart. Performed By: #### 5 7021-8 ####[facility] LABCLIA [id number] [address] LABCLIA [id number] [place] [address] Nucleated RBC/100 WBC (Bld) [Ratio] 0.0 /100 WBC Normal [facility] Comment on above: Order Comment: Speci men Type: BLOOD SPECIMENOrdering Facility: [facility] Address: [address] [place], [place] [address] Performed By: #### 5 7021-8 ####[facility] LABCLIA [id number] [address] LABCLIA [id number] [place] [address] Ovalocytes LM Ql (Bld) Few Normal [facility] Comment on above: Order Comment: Speci men Type: BLOOD SPECIMENOrdering Facility: [facility] Address: [address] [place] [address] Performed By: #### 5 7021-8 ####[facility] LABCLIA [id number] [address] LABCLIA [id number] [place] [address] Platelet mean volume (Bld) [Entitic vol] Normal [facility] Comment on above: Order Comment: Speci men Type: BLOOD SPECIMENOrdering Facility: [facility] Address: [address] [place] [address] Result Comment: Unab le to Report. Performed By: #### 5 7021-8 ####[facility] LABCLIA [id number] [address] LABCLIA [id number] [place] [address] Platelets (Bld) [#/Vol] 65 10*3/uL Low 150-400 [facility] Comment on above: Order Comment: Speci men Type: BLOOD SPECIMENOrdering Facility: [facility] Address: [address] [place] [address] Result Comment: No c lot detected.Results checked and verified. Performed By: #### 5 7021-8 ####[facility] LABCLIA [id number] [address] LABCLIA [id number] [place] [address] Platelets Estimate (Bld) [#/Vol] Decreased Normal [facility] Comment on above: Order Comment: Speci men Type: BLOOD SPECIMENOrdering Facility: [facility] Address: [address] [place] [address] Performed By: #### 5 7021-8 ####[facility] LABCLIA [id number] [facility] [id number] LABCLIA [id number] [place] [address] RBC (Bld) [#/Vol] 2.33 10*6/uL Low 4.20-6.00 [facility] Comment on above: Order Comment: Speci men Type: BLOOD SPECIMENOrdering Facility: [facility] Address: [address] [place] [address] Performed By: #### 5 7021-8 ####[facility] LABCLIA [id number] [address] LABCLIA [id number] [place] [address] RBC FRAGMENTS Few Abnormal None Seen [facility] Comment on above: Order Comment: Speci men Type: BLOOD SPECIMENOrdering Facility: [facility] Address: [address] [place] [address] Performed By: #### 5 7021-8 ####[facility] LABCLIA [id number] [address] LABCLIA [id number] [place] [address] RED CELL MORPH Reviewed: see result s of individual morphologies Normal [facility] Comment on above: Order Comment: Speci men Type: BLOOD SPECIMENOrdering Facility: [facility] Address: [address] [place], [place] [address] Performed By: #### 5 7021-8 ####[facility] LABCLIA [id number] [address] LABCLIA [id number] [place] [address] WBC (Bld) [#/Vol] 1.64 10*3/uL Low 3.70-11.00 [facility] Comment on above: Order Comment: Speci men Type: BLOOD SPECIMENOrdering Facility: [facility] Address: [address] [phone] Result Comment: No c lot detected.Results checked and verified. Performed By: #### 5 7021-8 ####[facility] LABCLIA [id number] HALEY [id number] [address] [facility] LABCLIA [id number] [place] [address] CNOVSPon 07-08-2022 CNOVSP Normal [facility] CNPNon 07-08-2022 CNPN Normal [facility] Comprehensive metabolic 2000 panelon 07-08-2022 Albumin [Mass/Vol] 3.8 g/dL Low 3.9-4.9 [facility] Comment on above: Order Comment: Speci men Type: BLOOD SPECIMENOrdering Facility: [facility] Address: [address] [address] Performed By: #### 2 532-0, 30101-9 ####[facility] LABCLIA [id number] [place] [address] ALP [Catalytic activity/Vol] 117 U/L High 38-113 [facility] Comment on above: Order Comment: Speci men Type: BLOOD SPECIMENOrdering Facility: [facility] Address: [address] [address] Performed By: #### 2 532-0, 09765-6 ####[facility] LABCLIA [id number] [place] [address] ALT [Catalytic activity/Vol] 47 U/L Normal 10-54 [facility] Comment on above: Order Comment: Speci men Type: BLOOD SPECIMENOrdering Facility: [facility] Address: [address] Performed By: #### 2 532-0, 81196-4 ####[facility] LABCLIA [id number] [place] [address] Anion gap [Moles/Vol] 8 mmol/L Low 9-18 [facility] Comment on above: Order Comment: Speci men Type: BLOOD SPECIMENOrdering Facility: [facility] Address: [address] [address] Performed By: #### 2 532-0, ####[facility] LABCLIA [id number] [place] [address] AST [Catalytic activity/Vol] 22 U/L Normal 14-40 [facility] Comment on above: Order Comment: Speci men Type: BLOOD SPECIMENOrdering Facility: [facility] Address: [address] [address] Performed By: #### 2 532-0, ####[facility] LABIA [id number] [place] [address] Bilirubin [Mass/Vol] 0.8 mg/dL Normal 0.2-1.3 [facility] Comment on above: Order Comment: Speci men Type: BLOOD SPECIMENOrdering Facility: [facility] Address: [address] [address] Performed By: #### 2 532-0, ####[facility] LABIA [id number] [place] [address] Calcium [Mass/Vol] 8.8 mg/dL Normal 8.5-10.2 [facility] Comment on above: Order Comment: Speci men Type: BLOOD SPECIMENOrdering Facility: [facility] Address: [address] [address] Performed By: #### 2 532-0, ####[facility] LABIA [id number] [place] [address] Chloride [Moles/Vol] 103 mmol/L Normal 97-105 [facility] Comment on above: Order Comment: Speci men Type: BLOOD SPECIMENOrdering Facility: [facility] Address: [address] [address] Performed By: #### 2 532-0, ####[facility] LABCLIA [id number] [place] [address] CO2 [Moles/Vol] 32 mmol/L High 22-30 [facility] Comment on above: Order Comment: Speci men Type: BLOOD SPECIMENOrdering Facility: [facility] Address: [address] [place] [address] Performed By: #### 2 532-0, 80887-3 ####[facility] LABCLIA [id number] [place] [address] Creatinine [Mass/Vol] 1.55 mg/dL High 0.73-1.22 [facility] Comment on above: Order Comment: Speci men Type: BLOOD SPECIMENOrdering Facility: [facility] Address: [address] [place] [address] Performed By: #### 2 532-0, 97191-7 ####[facility] LABCLIA [id number] [place] [address] ESTIMATED GLOMERULAR FILTRATION RATE 44 mL/min/1.73m??? Low >=60 [facility] Comment on above: Order Comment: Speci men Type: BLOOD SPECIMENOrdering Facility: [facility] Address: [address] [place] [address] Result Comment: Faye mated Glomerular Filtration Rate [...] actual GFR. Performed By: #### 2 532-0, 33886-0 ####[facility] LABCLIA [id number] [place] [address] Glucose [Mass/Vol] 130 mg/dL High 74-99 [facility] Comment on above: Order Comment: Speci men Type: BLOOD SPECIMENOrdering Facility: [facility] Address: [address] [phone] Result Comment: The [place] [employer] (ADA) provides guidance for cutoff [...] Standards of Medical Care in Diabetes 2016, [place] [employer]. Diabetes Care. 2016.39(Suppl 1). Performed By: #### 2 532-0, 45553-0 ####[facility] LABCLIA [id number] [place] [address] Potassium [Moles/Vol] 4.1 mmol/L Normal 3.7-5.1 [facility] Comment on above: Order Comment: Speci men Type: BLOOD SPECIMENOrdering Facility: [facility] Address: [address] [place] [address] Performed By: #### 2 532-0, 06171-8 ####[facility] LABCLIA [id number] [place] [address] Protein [Mass/Vol] 6.1 g/dL Low 6.3-8.0 [facility] Comment on above: Order Comment: Speci men Type: BLOOD SPECIMENOrdering Facility: [facility] Address: [address] Performed By: #### 2 532-0, 29492-8 ####[facility] LABCLIA [id number] [place] [address] Sodium [Moles/Vol] 143 mmol/L Normal 136-144 [facility] Comment on above: Order Comment: Speci men Type: BLOOD SPECIMENOrdering Facility: [facility] Address: [address] [place] [address] Performed By: #### 2 532-0, 83846-6 ####[facility] LABCLIA [id number] [place] [address] Urea nitrogen [Mass/Vol] 20 mg/dL Normal 9-24 [facility] Comment on above: Order Comment: Speci men Type: BLOOD SPECIMENOrdering Facility: [facility] Address: [address] [phone] Performed By: #### 2 532-0, 89269-2 ####[facility] LABCLIA [id number] [place] [address] HEMOGRAM AND PLATELon 2021 Hematocrit (Bld) [Volume fraction] 22.7 % Critically low 42.0-54.0 [facility] Comment on above: Performed By: #### T NS, PRBC #### [facility] [address] [place] [address] Dr. Benito To Hemoglobin (Bld) [Mass/Vol] 7.2 g/dL Critically low 14.0-18.0 [facility] Comment on above: Performed By: #### T NS, PRBC #### [facility] [address] [place] [address] Dr. Benito To MCH (RBC) [Entitic mass] 31.3 pg Normal 25.9-34.0 [facility] Comment on above: Performed By: #### T NS, PRBC #### [facility] [address] [place] [address] Dr. Benito To MCHC (RBC) [Mass/Vol] 31.7 g/dL Normal 29.9-35.2 [facility] Comment on above: Performed By: #### T NS, PRBC #### [facility] [address] [place] [address] Dr. Benito To MCV (RBC) [Entitic vol] 98.7 fL Critically high 80.0-94.0 [facility] Comment on above: Performed By: #### T NS, PRBC #### [facility] [address] [place], [place] [address] Dr. Benito To PLT 66 103/ul Critically low 150-450 [facility] Comment on above: Performed By: #### T NS, PRBC #### [facility] [address] [place], [place] [address] Dr. Benito To RBC 2.30 106/ul Critically low 4.70-6.10 [facility] Comment on above: Performed By: #### T NS, PRBC #### [facility] [address] [place], [place] [address] Dr. Benito To WBC 1.7 103/ul Critically low 4.0-11.0 [facility] Comment on above: Performed By: #### T NS, PRBC #### [facility] [address] [place], [place] [address] Dr. Benito To LDH SerPl-cCncon 07-08-2022 LDH [Catalytic activity/Vol] 187 U/L Normal 135-225 [facility] Comment on above: Order Comment: Speci men Type: BLOOD SPECIMENOrdering Facility: [facility] Address: [address] [place] [address] Performed By: #### 2 532-0, 25088-4 ####[facility] LABCLIA [id number] [place] [address] CBC W Auto Differential pane l (Bld)on 07-01-2022 Anisocytosis Ql (Bld) Present Normal [facility] Comment on above: Order Comment: Speci men Type: BLOOD SPECIMENOrdering Facility: [facility] Address: [address] [address] Performed By: #### 5 7021-8 ####[facility] LABCLIA [id number] [address] LABCLIA [id number] [place] [address] Basophils (Bld) [#/Vol] 0.13 10*3/uL High <0.11 [facility] Comment on above: Order Comment: Speci men Type: BLOOD SPECIMENOrdering Facility: [facility] Address: [address] [place] [address] Performed By: #### 5 7021-8 ####[facility] LABCLIA [id number] [address] LABCLIA [id number] [place] [address] Basophils/100 WBC (Bld) 8.0 % Normal [facility] Comment on above: Order Comment: Speci men Type: BLOOD SPECIMENOrdering Facility: [facility] Address: [address] [place] [address] Performed By: #### 5 7021-8 ####[facility] LABCLIA [id number] [address] LABCLIA [id number] [place] [id number] Differential cell count method Nom (Bld) Manual Normal [facility] Comment on above: Order Comment: Speci men Type: BLOOD SPECIMENOrdering Facility: [facility] Address: [address] [place] [address] Performed By: #### 5 7021-8 ####[facility] LABCLIA [id number] [address] LABCLIA [id number] [place] [id number] Eosinophils (Bld) [#/Vol] 0.02 10*3/uL Normal <0.46 [facility] Comment on above: Order Comment: Speci men Type: BLOOD SPECIMENOrdering Facility: [facility] Address: [address] [place] [address] Performed By: #### 5 7021-8 ####[facility] LABCLIA [id number] [address] LABCLIA [id number] [place] [address] Eosinophils/100 WBC (Bld) 1.0 % Normal [facility] Comment on above: Order Comment: Speci men Type: BLOOD SPECIMENOrdering Facility: [facility] Address: [address] [place] [address] Performed By: #### 5 7021-8 ####[facility] LABCLIA [id number] [address] LABCLIA [id number] [place] [address] Erythrocyte distribution width (RBC) [Ratio] 17.9 % High 11.5-15.0 [facility] Comment on above: Order Comment: Speci men Type: BLOOD SPECIMENOrdering Facility: [facility] Address: [address] [place] [address] Performed By: #### 5 7021-8 ####[facility] LABCLIA [id number] [address] LABCLIA [id number] [place] [address] Hematocrit (Bld) [Volume fraction] 25.8 % Low 39.0-51.0 [facility] Comment on above: Order Comment: Speci men Type: BLOOD SPECIMENOrdering Facility: [facility] Address: [address] [place], [place] [address] Performed By: #### 5 7021-8 ####[facility] LABCLIA [id number] [address] LABIA [id number] [place] [address] Hemoglobin (Bld) [Mass/Vol] 8.3 g/dL Low 13.0-17.0 [facility] Comment on above: Order Comment: Speci men Type: BLOOD SPECIMENOrdering Facility: [facility] Address: [facility] [address] Performed By: #### 5 7021-8 ####[facility] LABCLIA [id number] [address] LABCLIA [id number] [place] [address] Lymphocytes (Bld) [#/Vol] 0.67 10*3/uL Low 1.00-4.00 [facility] Comment on above: Order Comment: Speci men Type: BLOOD SPECIMENOrdering Facility: [facility] Address: [address] [place] [address] Performed By: #### 5 7021-8 ####[facility] LABCLIA [id number] [address] LABCLIA [id number] [place] [address] Lymphocytes/100 WBC (Bld) 41.0 % Normal [facility] Comment on above: Order Comment: Speci men Type: BLOOD SPECIMENOrdering Facility: [facility] Address: [address] [place], [place] [address] Performed By: #### 5 7021-8 ####[facility] LABCLIA [id number] [address] LABCLIA [id number] [place] [address] MCH (RBC) [Entitic mass] 31.7 pg Normal 26.0-34.0 [facility] Comment on above: Order Comment: Speci men Type: BLOOD SPECIMENOrdering Facility: [facility] Address: [address] [place], [place] [address] Performed By: #### 5 7021-8 ####[facility] LABCLIA [id number] [address] LABCLIA [id number] [place] [address] MCHC (RBC) [Mass/Vol] 32.2 g/dL Normal 30.5-36.0 [facility] Comment on above: Order Comment: Speci men Type: BLOOD SPECIMENOrdering Facility: [facility] Address: [address] [place] [address] Performed By: #### 5 7021-8 ####[facility] LABCLIA [id number] [address] LABCLIA [id number] [place] [address] MCV (RBC) [Entitic vol] 98.5 fL Normal 80.0-100.0 [facility] Comment on above: Order Comment: Speci men Type: BLOOD SPECIMENOrdering Facility: [facility] Address: [address] [place], [place] [address] Performed By: #### 5 7021-8 ####[facility] LABCLIA [id number] [address] LABCLIA [id number] [place] [id number] Metamyelocytes/100 WBC (Bld) 2.0 % Normal [facility] Comment on above: Order Comment: Speci men Type: BLOOD SPECIMENOrdering Facility: [facility] Address: [address] [place], [place] [address] Performed By: #### 5 7021-8 ####[facility] LABCLIA [id number] [address] LABCLIA [id number] [place] [id number] Monocytes (Bld) [#/Vol] 0.08 10*3/uL Normal <0.87 [facility] Comment on above: Order Comment: Speci men Type: BLOOD SPECIMENOrdering Facility: [facility] Address: [address] Performed By: #### 5 7021-8 ####[facility] LABCLIA [id number] [address] LABCLIA [id number] [place] [address] Monocytes/100 WBC (Bld) 5.0 % Normal [facility] Comment on above: Order Comment: Speci men Type: BLOOD SPECIMENOrdering Facility: [facility] Address: [address] Performed By: #### 5 7021-8 ####[facility] LABCLIA [id number] [address] LABCLIA [id number] [place] [address] MYELO% 1.0 % Normal [facility] Comment on above: Order Comment: Speci men Type: BLOOD SPECIMENOrdering Facility: [facility] Address: [address] [place] [address] Performed By: #### 5 7021-8 ####[facility] LABCLIA [id number] [address] LABCLIA [id number] [place] [address] Neutrophils (Bld) [#/Vol] 0.68 10*3/uL Low 1.45-7.50 [facility] Comment on above: Order Comment: Speci men Type: BLOOD SPECIMENOrdering Facility: [facility] Address: [address] [place], [place] [address] Performed By: #### 5 7021-8 ####[facility] LABCLIA [id number] [address] LABCLIA [id number] [place] [address] Neutrophils/100 WBC (Bld) 42.0 % Normal [facility] Comment on above: Order Comment: Speci men Type: BLOOD SPECIMENOrdering Facility: [facility] Address: [address] [place] [address] Performed By: #### 5 7021-8 ####[facility] LABCLIA [id number] [address] LABCLIA [id number] [place] [address] Nucleated RBC (Bld) [#/Vol] 10*3/uL Normal <0.01 [facility] Comment on above: Order Comment: Speci men Type: BLOOD SPECIMENOrdering Facility: [facility] Address: [address] [place] [address] Performed By: #### 5 7021-8 ####[facility] LABCLIA [id number] [address] LABCLIA [id number] [place] [address] Nucleated RBC/100 WBC (Bld) [Ratio] 0.0 /100 WBC Normal [facility] Comment on above: Order Comment: Speci men Type: BLOOD SPECIMENOrdering Facility: [facility] Address: [address] [place], [place] [address] Performed By: #### 5 7021-8 ####[facility] LABCLIA [id number] [address] LABCLIA [id number] [place] [address] Ovalocytes LM Ql (Bld) Few Normal [facility] Comment on above: Order Comment: Speci men Type: BLOOD SPECIMENOrdering Facility: [facility] Address: [address] [place], [place] [address] Performed By: #### 5 7021-8 ####[facility] LABCLIA [id number] [address] LABCLIA [id number] [place] [address] Platelet mean volume (Bld) [Entitic vol] Normal [facility] Comment on above: Order Comment: Speci men Type: BLOOD SPECIMENOrdering Facility: [facility] Address: [address] [place] [address] Result Comment: Unab le to Report. Performed By: #### 5 7021-8 ####[facility] LABCLIA [id number] [address] LABCLIA [id number] [place] [address] Platelets (Bld) [#/Vol] 72 10*3/uL Low 150-400 [facility] Comment on above: Order Comment: Speci men Type: BLOOD SPECIMENOrdering Facility: [facility] Address: [address] [place] [address] Result Comment: Resu lts checked and verified. No clot detected Performed By: #### 5 7021-8 ####[facility] LABCLIA [id number] [address] LABCLIA [id number] [place] [address] Platelets Estimate (Bld) [#/Vol] Decreased Normal [facility] Comment on above: Order Comment: Speci men Type: BLOOD SPECIMENOrdering Facility: [facility] Address: [address] [place], [place] [address] Performed By: #### 5 7021-8 ####[facility] LABCLIA [id number] [address] LABCLIA [id number] [place] [address] RBC (Bld) [#/Vol] 2.62 10*6/uL Low 4.20-6.00 [facility] Comment on above: Order Comment: Speci men Type: BLOOD SPECIMENOrdering Facility: [facility] Address: [address] [place] [address] Performed By: #### 5 7021-8 ####[facility] LABCLIA [id number] [address] LABCLIA [id number] [place] [address] RED CELL MORPH Reviewed: see result s of individual morphologies Normal [facility] Comment on above: Order Comment: Speci men Type: BLOOD SPECIMENOrdering Facility: [facility] Address: [address] [place] [address] Performed By: #### 5 7021-8 ####[facility] LABCLIA [id number] [address] LABCLIA [id number] [place] [address] WBC (Bld) [#/Vol] 1.63 10*3/uL Low 3.70-11.00 [facility] Comment on above: Order Comment: Speci men Type: BLOOD SPECIMENOrdering Facility: [facility] Address: [address] [place] [address] Result Comment: Resu lts checked and verified. No clot detected Performed By: #### 5 7021-8 ####[facility] LABCLIA [id number] [address] LABCLIA [id number] [place] [address] WBC Left Shift Ql (Bld) Present Normal [facility] Comment on above: Order Comment: Speci men Type: BLOOD SPECIMENOrdering Facility: [facility] Address: [address] [place] [address] Performed By: #### 5 7021-8 ####[facility] LABCLIA [id number] [facility] [id number] LABCLIA [id number] [place] [address] CNOVSPon 07-01-2022 CNOVSP Normal [facility] metabolic 2000 panelon 07-01-2022 Albumin [Mass/Vol] 3.8 g/dL Low 3.9-4.9 [facility] Comment on above: Order Comment: Speci men Type: BLOOD SPECIMENOrdering Facility: [facility] Address: [address] [place] [address] Performed By: #### 2 4323-8 ####[facility] LABCLIA [id number] [place] [address] ALP [Catalytic activity/Vol] 118 U/L High 38-113 [facility] Comment on above: Order Comment: Speci men Type: BLOOD SPECIMENOrdering Facility: [facility] Address: [address] [place] [address] Performed By: #### 2 4323-8 ####[facility] LABCLIA [id number] [place] [address] ALT [Catalytic activity/Vol] 44 U/L Normal 10-54 [facility] Comment on above: Order Comment: Speci men Type: BLOOD SPECIMENOrdering Facility: [facility] Address: [address] [place] [address] Performed By: #### 2 4323-8 ####[facility] LABCLIA [id number] [place] [address] Anion gap [Moles/Vol] 8 mmol/L Low 9-18 [facility] Comment on above: Order Comment: Speci men Type: BLOOD SPECIMENOrdering Facility: [facility] Address: [address] [place] [address] Performed By: #### 2 4323-8 ####[facility] LABCLIA [id number] [place] [address] AST [Catalytic activity/Vol] 20 U/L Normal 14-40 [facility] Comment on above: Order Comment: Speci men Type: BLOOD SPECIMENOrdering Facility: [facility] Address: [address] [place] [address] Performed By: #### 2 4323-8 ####[facility] LABCLIA [id number] [place] [address] Bilirubin [Mass/Vol] 1.0 mg/dL Normal 0.2-1.3 [facility] Comment on above: Order Comment: Speci men Type: BLOOD SPECIMENOrdering Facility: [facility] Address: [address] [place] [address] Performed By: #### 2 4323-8 ####[facility] LABCLIA [id number] [place] [address] Calcium [Mass/Vol] 8.8 mg/dL Normal 8.5-10.2 [facility] Comment on above: Order Comment: Speci men Type: BLOOD SPECIMENOrdering Facility: [facility] Address: [address] [place] [address] Performed By: #### 2 4323-8 ####[facility] LABCLIA [id number] [place] [address] Chloride [Moles/Vol] 103 mmol/L Normal 97-105 [facility] Comment on above: Order Comment: Speci men Type: BLOOD SPECIMENOrdering Facility: [facility] Address: [address] [place] [address] Performed By: #### 2 4323-8 ####[facility] LABCLIA [id number] [place] [address] CO2 [Moles/Vol] 32 mmol/L High 22-30 [facility] Comment on above: Order Comment: Speci men Type: BLOOD SPECIMENOrdering Facility: [facility] Address: [address] [place], [place] [address] [address] Performed By: #### 2 4323-8 ####[facility] LABCLIA [id number] [place] [address] Creatinine [Mass/Vol] 1.43 mg/dL High 0.73-1.22 [facility] Comment on above: Order Comment: Speci men Type: BLOOD SPECIMENOrdering Facility: [facility] Address: [address] [place] [address] Performed By: #### 2 4323-8 ####[facility] LABCLIA [id number] [place] [address] ESTIMATED GLOMERULAR FILTRATION RATE 49 mL/min/1.73m??? Low >=60 [facility] Comment on above: Order Comment: Speci men Type: BLOOD SPECIMENOrdering Facility: [facility] Address: [address] [place] [address] Result Comment: Faye mated Glomerular Filtration Rate [...] actual GFR. Performed By: #### 2 4323-8 ####[facility] LABCLIA [id number] [place] [address] Glucose [Mass/Vol] 123 mg/dL High 74-99 [facility] Comment on above: Order Comment: Speci men Type: BLOOD SPECIMENOrdering Facility: [facility] Address: [address] [place] [address] Result Comment: The [place] [employer] (ADA) provides guidance for cutoff [...] Standards of Medical Care in Diabetes 2016, [place] [employer]. Diabetes Care. 2016.39(Suppl 1). Performed By: #### 2 4323-8 ####[facility] LABCLIA [id number] [place] [address] Potassium [Moles/Vol] 3.9 mmol/L Normal 3.7-5.1 [facility] Comment on above: Order Comment: Speci men Type: BLOOD SPECIMENOrdering Facility: [facility] Address: [address] [place] [address] Performed By: #### 2 4323-8 ####[facility] LABCLIA [id number] [place] [address] Protein [Mass/Vol] 6.2 g/dL Low 6.3-8.0 [facility] Comment on above: Order Comment: Speci men Type: BLOOD SPECIMENOrdering Facility: [facility] Address: [address] [place] [address] Performed By: #### 2 4323-8 ####[facility] LABCLIA [id number] [place] [address] Sodium [Moles/Vol] 143 mmol/L Normal 136-144 [facility] Comment on above: Order Comment: Speci men Type: BLOOD SPECIMENOrdering Facility: [facility] Address: [address] [place] [address] Performed By: #### 2 4323-8 ####[facility] LABCLIA [id number] [place] [address] Urea nitrogen [Mass/Vol] 21 mg/dL Normal 9-24 [facility] Comment on above: Order Comment: Speci men Type: BLOOD SPECIMENOrdering Facility: [facility] Address: [address] [place] [address] Performed By: #### 2 4323-8 ####[facility] LABCLIA [id number] [place] [id number] LDH SerPl-cCncon 07-01-2022 LDH [Catalytic activity/Vol] 200 U/L Normal 135-225 [facility] Comment on above: Order Comment: Speci men Type: BLOOD SPECIMENOrdering Facility: [facility] Address: [address] [place] [address] Performed By: #### 2 532-0 ####[facility] LABCLIA [id number] [place] [id number] HEMOGLOBIN AND HEMATOCRITon 06-25-2022 Hematocrit (Bld) [Volume fraction] 24.6 % Critically low 42.0-54.0 [facility] Comment on above: Performed By: #### T ZEHRA, PRBC #### [facility] [address] [place] [address] Dr. Benito To Hemoglobin (Bld) [Mass/Vol] 8.0 g/dL Critically low 14.0-18.0 [facility] Comment on above: Performed By: #### T ZEHRA, PRBC #### [facility] [address] [place] [address] Dr. Benito To TYPE AND SCREENon 06-25-2022 TYPE AND SCREEN Negative Normal [facility] Comment on above: Performed By: #### T ZEHRA, PRBC #### [facility] [address] [place] [address] Dr. Benito To CBC W Auto Differential pane l (Bld)on 06-24-2022 Anisocytosis Ql (Bld) Present Normal [facility] Comment on above: Order Comment: Speci men Type: BLOOD SPECIMENOrdering Facility: [facility] Address: [address] [place] [address] Performed By: #### 5 7021-8 ####[facility] LABCLIA [id number] [place] [id number] LABCLIA [id number] [place] [address] [place] Basophils (Bld) [#/Vol] 0.04 10*3/uL Normal <0.11 [facility] Comment on above: Order Comment: Speci men Type: BLOOD SPECIMENOrdering Facility: [facility] Address: [address] [place] [address] Performed By: #### 5 7021-8 ####[facility] LABCLIA [id number] [address] LABCLIA [id number] [place] [address] [place] Basophils/100 WBC (Bld) 2.0 % Normal [facility] Comment on above: Order Comment: Speci men Type: BLOOD SPECIMENOrdering Facility: [facility] Address: [address] [place] [address] Performed By: #### 5 7021-8 ####[facility] LABCLIA [id number] [address] LABCLIA [id number] [place] [address] [place] Differential cell count method Nom (Bld) Manual Normal [facility] Comment on above: Order Comment: Speci men Type: BLOOD SPECIMENOrdering Facility: [facility] Address: [address] [place] [address] Performed By: #### 5 7021-8 ####[facility] LABCLIA [id number] [address] LABCLIA [id number] [place] [address] [place] Eosinophils (Bld) [#/Vol] 0.02 10*3/uL Normal <0.46 [facility] Comment on above: Order Comment: Speci men Type: BLOOD SPECIMENOrdering Facility: [facility] Address: [address] [place] [address] Performed By: #### 5 7021-8 ####[facility] LABCLIA [id number] [address] LABCLIA [id number] [place] [address] [place] Eosinophils/100 WBC (Bld) 1.0 % Normal [facility] Comment on above: Order Comment: Speci men Type: BLOOD SPECIMENOrdering Facility: [facility] Address: [address] Performed By: #### 5 7021-8 ####[facility] LABCLIA [id number] [address] LABCLIA [id number] [place] [address] [place] Erythrocyte distribution width (RBC) [Ratio] 18.7 % High 11.5-15.0 [facility] Comment on above: Order Comment: Speci men Type: BLOOD SPECIMENOrdering Facility: [facility] Address: [address] Performed By: #### 5 7021-8 ####[facility] LABCLIA [id number] [address] LABCLIA [id number] [place] [address] [place] Hematocrit (Bld) [Volume fraction] 25.5 % Low 39.0-51.0 [facility] Comment on above: Order Comment: Speci men Type: BLOOD SPECIMENOrdering Facility: [facility] Address: [address] Performed By: #### 5 7021-8 ####[facility] LABCLIA [id number] [address] LABCLIA [id number] [place] [address] [place] Hemoglobin (Bld) [Mass/Vol] 8.1 g/dL Low 13.0-17.0 [facility] Comment on above: Order Comment: Speci men Type: BLOOD SPECIMENOrdering Facility: [facility] Address: [address] [place] [address] Performed By: #### 5 7021-8 ####[facility] LABCLIA [id number] [address] LABCLIA [id number] [place] [address] [place] Lymphocytes (Bld) [#/Vol] 0.75 10*3/uL Low 1.00-4.00 [facility] Comment on above: Order Comment: Speci men Type: BLOOD SPECIMENOrdering Facility: [facility] Address: [address] [place] [address] Performed By: #### 5 7021-8 ####[facility] LABCLIA [id number] [address] LABCLIA [id number] [place] [address] [place] Lymphocytes/100 WBC (Bld) 42.0 % Normal [facility] Comment on above: Order Comment: Speci men Type: BLOOD SPECIMENOrdering Facility: [facility] Address: [address] [place], [place] [address] Performed By: #### 5 7021-8 ####[facility] LABCLIA [id number] [address] LABCLIA [id number] [place] [address] [place] MCH (RBC) [Entitic mass] 31.6 pg Normal 26.0-34.0 [facility] Comment on above: Order Comment: Speci men Type: BLOOD SPECIMENOrdering Facility: [facility] Address: [address] [place] [address] Performed By: #### 5 7021-8 ####[facility] LABCLIA [id number] [address] LABCLIA [id number] [place] [address] [place] MCHC (RBC) [Mass/Vol] 31.8 g/dL Normal 30.5-36.0 [facility] Comment on above: Order Comment: Speci men Type: BLOOD SPECIMENOrdering Facility: [facility] Address: [address] Performed By: #### 5 7021-8 ####[facility] LABCLIA [id number] [address] LABCLIA [id number] [place] [address] [place] MCV (RBC) [Entitic vol] 99.6 fL Normal 80.0-100.0 [facility] Comment on above: Order Comment: Speci men Type: BLOOD SPECIMENOrdering Facility: [facility] Address: [address] Performed By: #### 5 7021-8 ####[facility] LABCLIA [id number] [address] LABCLIA [id number] [place] [address] [place] Monocytes (Bld) [#/Vol] 0.14 10*3/uL Normal <0.87 [facility] Comment on above: Order Comment: Speci men Type: BLOOD SPECIMENOrdering Facility: [facility] Address: [address] Performed By: #### 5 7021-8 ####[facility] LABCLIA [id number] [address] LABCLIA [id number] [place] [address] [place] Monocytes/100 WBC (Bld) 8.0 % Normal [facility] Comment on above: Order Comment: Speci men Type: BLOOD SPECIMENOrdering Facility: [facility] Address: [address] [place] [address] Performed By: #### 5 7021-8 ####[facility] LABCLIA [id number] [address] LABCLIA [id number] [place] [address] [place] Neutrophils (Bld) [#/Vol] 0.84 10*3/uL Low 1.45-7.50 [facility] Comment on above: Order Comment: Speci men Type: BLOOD SPECIMENOrdering Facility: [facility] Address: [address] [place], [place] [address] Performed By: #### 5 7021-8 ####[facility] LABCLIA [id number] [address] LABCLIA [id number] [place] [address] [place] Neutrophils/100 WBC (Bld) 47.0 % Normal [facility] Comment on above: Order Comment: Speci men Type: BLOOD SPECIMENOrdering Facility: [facility] Address: [address] [place], [place] [address] Performed By: #### 5 7021-8 ####[facility] LABCLIA [id number] [address] LABCLIA [id number] [place] [address] [place] Nucleated RBC (Bld) [#/Vol] 10*3/uL Normal <0.01 [facility] Comment on above: Order Comment: Speci men Type: BLOOD SPECIMENOrdering Facility: [facility] Address: [address] [place], [place] [address] Performed By: #### 5 7021-8 ####[facility] LABCLIA [id number] [address] LABCLIA [id number] [place] [address] [place] Nucleated RBC/100 WBC (Bld) [Ratio] 0.0 /100 WBC Normal [facility] Comment on above: Order Comment: Speci men Type: BLOOD SPECIMENOrdering Facility: [facility] Address: [address] Performed By: #### 5 7021-8 ####[facility] LABCLIA [id number] [address] LABCLIA [id number] [place] [address] [place] Ovalocytes LM Ql (Bld) Few Normal [facility] Comment on above: Order Comment: Speci men Type: BLOOD SPECIMENOrdering Facility: [facility] Address: [address] [place] [address] Performed By: #### 5 7021-8 ####[facility] LABCLIA [id number] [address] LABCLIA [id number] [place] [address] [place] Platelet mean volume (Bld) [Entitic vol] 14.0 fL High 9.0-12.7 [facility] Comment on above: Order Comment: Speci men Type: BLOOD SPECIMENOrdering Facility: [facility] Address: [address] [place] [address] Performed By: #### 5 7021-8 ####[facility] LABCLIA [id number] [address] LABCLIA [id number] [place] [address] [place] Platelets (Bld) [#/Vol] 72 10*3/uL Low 150-400 [facility] Comment on above: Order Comment: Speci men Type: BLOOD SPECIMENOrdering Facility: [facility] Address: [address] [place] [address] Result Comment: Sammitch le checked for clot Performed By: #### 5 7021-8 ####[facility] LABCLIA [id number] [address] LABCLIA [id number] [place] [address] [place] Platelets Estimate (Bld) [#/Vol] Decreased Normal [facility] Comment on above: Order Comment: Speci men Type: BLOOD SPECIMENOrdering Facility: [facility] Address: [address] [place] [address] Performed By: #### 5 7021-8 ####[facility] LABCLIA [id number] [address] LABCLIA [id number] [place] [address] [place] RBC (Bld) [#/Vol] 2.56 10*6/uL Low 4.20-6.00 [facility] Comment on above: Order Comment: Speci men Type: BLOOD SPECIMENOrdering Facility: [facility] Address: [address] [place] [address] Performed By: #### 5 7021-8 ####[facility] LABCLIA [id number] [address] LABCLIA [id number] [place] [address] [place] RBC FRAGMENTS Few Abnormal None Seen [facility] Comment on above: Order Comment: Speci men Type: BLOOD SPECIMENOrdering Facility: [facility] Address: [address] [place] [address] Performed By: #### 5 7021-8 ####[facility] LABCLIA [id number] [place], [place] [address]WW[facility] LABCLIA [id number] [place] [address] [place] RED CELL MORPH Reviewed: see result s of individual morphologies Normal [facility] Comment on above: Order Comment: Speci men Type: BLOOD SPECIMENOrdering Facility: [facility] Address: [address] [place] [address] Performed By: #### 5 7021-8 ####[facility] LABCLIA [id number] [address] LABCLIA [id number] [place] [address] [place] WBC (Bld) [#/Vol] 1.79 10*3/uL Low 3.70-11.00 [facility] Comment on above: Order Comment: Speci men Type: BLOOD SPECIMENOrdering Facility: [facility] Address: [address] [place] [address] Result Comment: Samp le checked for clot Performed By: #### 5 7021-8 ####[facility] LABCLIA [id number] [place] [id number] LABCLIA [id number] [place] [address] [place] CNOVSPon 06-24-2022 CNOVSP Normal [facility] Comprehensive metabolic 2000 panelon 06-24-2022 Albumin [Mass/Vol] 3.7 g/dL Low 3.9-4.9 [facility] Comment on above: Order Comment: Speci men Type: BLOOD SPECIMENOrdering Facility: [facility] Address: [address] [place] [address] Performed By: #### 2 532-0, 89695-2 ####[facility] LABCLIA [id number] [place] [id number] ALP [Catalytic activity/Vol] 117 U/L High 38-113 [facility] Comment on above: Order Comment: Speci men Type: BLOOD SPECIMENOrdering Facility: [facility] Address: [address] [place] [address] Performed By: #### 2 532-0, ####[facility] LABCLIA [id number] [place] [address] ALT [Catalytic activity/Vol] 48 U/L Normal 10-54 [facility] Comment on above: Order Comment: Speci men Type: BLOOD SPECIMENOrdering Facility: [facility] Address: [address] [place] [address] Performed By: #### 2 532-0, ####[facility] LABCLIA [id number] [place] [address] Anion gap [Moles/Vol] 9 mmol/L Normal 9-18 [facility] Comment on above: Order Comment: Speci men Type: BLOOD SPECIMENOrdering Facility: [facility] Address: [address] [place] [address] Performed By: #### 2 532-0, ####[facility] LABCLIA [id number] [place] [address] AST [Catalytic activity/Vol] 22 U/L Normal 14-40 [facility] Comment on above: Order Comment: Speci men Type: BLOOD SPECIMENOrdering Facility: [facility] Address: [address] [place] [address] Performed By: #### 2 532-0, ####[facility] LABCLIA [id number] [place] [address] Bilirubin [Mass/Vol] 1.0 mg/dL Normal 0.2-1.3 [facility] Comment on above: Order Comment: Speci men Type: BLOOD SPECIMENOrdering Facility: [facility] Address: [address] [place] [address] Performed By: #### 2 532-0, ####[facility] LABCLIA [id number] [place] [address] Calcium [Mass/Vol] 8.6 mg/dL Normal 8.5-10.2 [facility] Comment on above: Order Comment: Speci men Type: BLOOD SPECIMENOrdering Facility: [facility] Address: [address] [place] [address] Performed By: #### 2 532-0, ####[facility] LABCLIA [id number] [place] [address] Chloride [Moles/Vol] 105 mmol/L Normal 97-105 [facility] Comment on above: Order Comment: Speci men Type: BLOOD SPECIMENOrdering Facility: [facility] Address: [address] [place] [address] Performed By: #### 2 532-0, ####[facility] LABCLIA [id number] [place] [address] CO2 [Moles/Vol] 30 mmol/L Normal 22-30 [facility] Comment on above: Order Comment: Speci men Type: BLOOD SPECIMENOrdering Facility: [facility] Address: [address] [place] [address] Performed By: #### 2 532-0, ####[facility] LABCLIA [id number] [place] [address] Creatinine [Mass/Vol] 1.52 mg/dL High 0.73-1.22 [facility] Comment on above: Order Comment: Speci men Type: BLOOD SPECIMENOrdering Facility: [facility] Address: [address] [place] [address] Performed By: #### 2 532-0, ####[facility] LABCLIA [id number] [place] [address] ESTIMATED GLOMERULAR FILTRATION RATE 45 mL/min/1.73m??? Low >=60 [facility] Comment on above: Order Comment: Davi avendaño Type: BLOOD SPECIMENOrdering Facility: [facility] Address: [address] [id number] Result Comment: Faye mated Glomerular Filtration Rate [...] actual GFR. Performed By: #### 2 532-0, 77866-3 ####[facility] LABIA [id number] [place] [address] Glucose [Mass/Vol] 122 mg/dL High 74-99 [facility] Comment on above: Order Comment: Davi avendaño Type: BLOOD SPECIMENOrdering Facility: [facility] Address: [place] [phone] Result Comment: The [place] [employer] (ADA) provides guidance for cutoff [...] Standards of Medical Care in Diabetes 2016, [place] [employer]. Diabetes Care. 2016.39(Suppl 1). Performed By: #### 2 532-0, 83614-8 ####[facility] LABIA [id number] [place] [address] Potassium [Moles/Vol] 3.6 mmol/L Low 3.7-5.1 [facility] Comment on above: Order Comment: Davi avendaño Type: BLOOD SPECIMENOrdering Facility: [facility] Address: [address] [place] [address] Performed By: #### 2 532-0, ####[facility] LABCLIA [id number] [place] [address] Protein [Mass/Vol] 6.1 g/dL Low 6.3-8.0 [facility] Comment on above: Order Comment: Speci men Type: BLOOD SPECIMENOrdering Facility: [facility] Address: [address] [place] [address] Performed By: #### 2 532-0, ####[facility] LABCLIA [id number] [place] [address] Sodium [Moles/Vol] 144 mmol/L Normal 136-144 [facility] Comment on above: Order Comment: Speci men Type: BLOOD SPECIMENOrdering Facility: [facility] Address: [address] [place] [address] Performed By: #### 2 532-0, ####[facility] LABIA [id number] [place] [address] Urea nitrogen [Mass/Vol] 21 mg/dL Normal 9-24 [facility] Comment on above: Order Comment: Speci men Type: BLOOD SPECIMENOrdering Facility: [facility] Address: [address] [place] [address] Performed By: #### 2 532-0, ####[facility] LABCLIA [id number] [place] [address] [facility]-2022 LDH [Catalytic activity/Vol] 198 U/L Normal 135-225 [facility] Comment on above: Order Comment: Speci men Type: BLOOD SPECIMENOrdering Facility: [facility] Address: [address] [place] [address] Performed By: #### 2 532-0, 72506-8 ####[facility] LABCLIA [id number] [place] [id number] CBC W Auto Differential pane l (Bld)on 06-17-2022 Anisocytosis Ql (Bld) Present Normal [facility] Comment on above: Order Comment: Speci men Type: BLOOD SPECIMENOrdering Facility: [facility] Address: [address] [place] [address] Performed By: #### 5 7021-8 ####[facility] LABCLIA [id number] [address] LABCLIA [id number] [place] [address] [place] Basophils (Bld) [#/Vol] 0.05 10*3/uL Normal <0.11 [facility] Comment on above: Order Comment: Speci men Type: BLOOD SPECIMENOrdering Facility: [facility] Address: [address] [place] [address] Performed By: #### 5 7021-8 ####[facility] LABCLIA [id number] [address] LABCLIA [id number] [place] [address] [place] Basophils/100 WBC (Bld) 3.0 % Normal [facility] Comment on above: Order Comment: Speci men Type: BLOOD SPECIMENOrdering Facility: [facility] Address: [address] [place], [place] [address] Performed By: #### 5 7021-8 ####[facility] LABCLIA [id number] [address] LABCLIA [id number] [place] [address] [place] Differential cell count method Nom (Bld) Manual Normal [facility] Comment on above: Order Comment: Speci men Type: BLOOD SPECIMENOrdering Facility: [facility] Address: [address] [place] [address] Performed By: #### 5 7021-8 ####[facility] LABCLIA [id number] [address] LABCLIA [id number] [place] [address] [place] Eosinophils (Bld) [#/Vol] 0.03 10*3/uL Normal <0.46 [facility] Comment on above: Order Comment: Speci men Type: BLOOD SPECIMENOrdering Facility: [facility] Address: [address] Performed By: #### 5 7021-8 ####[facility] LABCLIA [id number] [address] LABCLIA [id number] [place] [address] [place] Eosinophils/100 WBC (Bld) 2.0 % Normal [facility] Comment on above: Order Comment: Speci men Type: BLOOD SPECIMENOrdering Facility: [facility] Address: [address] Performed By: #### 5 7021-8 ####[facility] LABCLIA [id number] [address] LABCLIA [id number] [place] [address] [place] Erythrocyte distribution width (RBC) [Ratio] 19.8 % High 11.5-15.0 [facility] Comment on above: Order Comment: Speci men Type: BLOOD SPECIMENOrdering Facility: [facility] Address: [address] [place] [address] Performed By: #### 5 7021-8 ####[facility] LABCLIA [id number] [address] LABCLIA [id number] [place] [address] [place] Hematocrit (Bld) [Volume fraction] 26.1 % Low 39.0-51.0 [facility] Comment on above: Order Comment: Speci men Type: BLOOD SPECIMENOrdering Facility: [facility] Address: [address] [place] [address] Performed By: #### 5 7021-8 ####[facility] LABCLIA [id number] [address] LABCLIA [id number] [place] [address] [place] Hemoglobin (Bld) [Mass/Vol] 8.4 g/dL Low 13.0-17.0 [facility] Comment on above: Order Comment: Speci men Type: BLOOD SPECIMENOrdering Facility: [facility] Address: [address] [place] [address] Performed By: #### 5 7021-8 ####[facility] LABCLIA [id number] [address] LABCLIA [id number] [place] [address] [place] Lymphocytes (Bld) [#/Vol] 0.66 10*3/uL Low 1.00-4.00 [facility] Comment on above: Order Comment: Speci men Type: BLOOD SPECIMENOrdering Facility: [facility] Address: [address] [place], [place] [address] Performed By: #### 5 7021-8 ####[facility] LABCLIA [id number] [address] LABCLIA [id number] [place] [address] [place] Lymphocytes/100 WBC (Bld) 40.0 % Normal [facility] Comment on above: Order Comment: Speci men Type: BLOOD SPECIMENOrdering Facility: [facility] Address: [address] [place], [place] [address] Performed By: #### 5 7021-8 ####[facility] LABCLIA [id number] [address] LABCLIA [id number] [place] [address] [place] MCH (RBC) [Entitic mass] 32.1 pg Normal 26.0-34.0 [facility] Comment on above: Order Comment: Speci men Type: BLOOD SPECIMENOrdering Facility: [facility] Address: [address] [place] [address] Performed By: #### 5 7021-8 ####[facility] LABCLIA [id number] [address] LABCLIA [id number] [place] [address] [place] MCHC (RBC) [Mass/Vol] 32.2 g/dL Normal 30.5-36.0 [facility] Comment on above: Order Comment: Speci men Type: BLOOD SPECIMENOrdering Facility: [facility] Address: [address] [place] [address] Performed By: #### 5 7021-8 ####[facility] LABCLIA [id number] [address] LABCLIA [id number] [place] [address] [place] MCV (RBC) [Entitic vol] 99.6 fL Normal 80.0-100.0 [facility] Comment on above: Order Comment: Speci men Type: BLOOD SPECIMENOrdering Facility: [facility] Address: [address] [place] [address] Performed By: #### 5 7021-8 ####[facility] LABCLIA [id number] [address] LABCLIA [id number] [place] [address] [place] Monocytes (Bld) [#/Vol] 0.20 10*3/uL Normal <0.87 [facility] Comment on above: Order Comment: Speci men Type: BLOOD SPECIMENOrdering Facility: [facility] Address: [address] [place] [address] Performed By: #### 5 7021-8 ####[facility] LABCLIA [id number] [address] LABCLIA [id number] [place] [address] [place] Monocytes/100 WBC (Bld) 12.0 % Normal [facility] Comment on above: Order Comment: Speci men Type: BLOOD SPECIMENOrdering Facility: [facility] Address: [address] [place] [address] Performed By: #### 5 7021-8 ####[facility] LABCLIA [id number] [address] LABCLIA [id number] [place] [address] [place] Neutrophils (Bld) [#/Vol] 0.71 10*3/uL Low 1.45-7.50 [facility] Comment on above: Order Comment: Speci men Type: BLOOD SPECIMENOrdering Facility: [facility] Address: [address] [place], [place] [address] Performed By: #### 5 7021-8 ####[facility] LABCLIA [id number] [address] LABCLIA [id number] [place] [address] [place] Neutrophils/100 WBC (Bld) 43.0 % Normal [facility] Comment on above: Order Comment: Speci men Type: BLOOD SPECIMENOrdering Facility: [facility] Address: [address] [place], [place] [address] Performed By: #### 5 7021-8 ####[facility] LABCLIA [id number] [address] LABCLIA [id number] [place] [address] [place] Nucleated RBC (Bld) [#/Vol] 10*3/uL Normal <0.01 [facility] Comment on above: Order Comment: Speci men Type: BLOOD SPECIMENOrdering Facility: [facility] Address: [address] [place] [address] Performed By: #### 5 7021-8 ####[facility] LABCLIA [id number] [address] LABCLIA [id number] [place] [address] [place] Nucleated RBC/100 WBC (Bld) [Ratio] 0.0 /100 WBC Normal [facility] Comment on above: Order Comment: Speci men Type: BLOOD SPECIMENOrdering Facility: [facility] Address: [address] [place], [place] [address] Performed By: #### 5 7021-8 ####[facility] LABCLIA [id number] [address] LABCLIA [id number] [place] [address] [place] Ovalocytes LM Ql (Bld) Few Normal [facility] Comment on above: Order Comment: Speci men Type: BLOOD SPECIMENOrdering Facility: [facility] Address: [address] [place] [address] Performed By: #### 5 7021-8 ####[facility] LABCLIA [id number] [address] LABCLIA [id number] [place] [address] [place] Platelet mean volume (Bld) [Entitic vol] 14.0 fL High 9.0-12.7 [facility] Comment on above: Order Comment: Speci men Type: BLOOD SPECIMENOrdering Facility: [facility] Address: [address] [place] [address] Performed By: #### 5 7021-8 ####[facility] LABCLIA [id number] [address] LABCLIA [id number] [place] [address] [place] Platelets (Bld) [#/Vol] 56 10*3/uL Low 150-400 [facility] Comment on above: Order Comment: Speci men Type: BLOOD SPECIMENOrdering Facility: [facility] Address: [address] [place] [address] Result Comment: Samp le checked for clot Performed By: #### 5 7021-8 ####[facility] LABCLIA [id number] [address] LABCLIA [id number] [place] [address] [place] Platelets Estimate (Bld) [#/Vol] Decreased Normal [facility] Comment on above: Order Comment: Speci men Type: BLOOD SPECIMENOrdering Facility: [facility] Address: [address] [place] [address] Performed By: #### 5 7021-8 ####[facility] LABCLIA [id number] [address] LABCLIA [id number] [place] [address] [place] RBC (Bld) [#/Vol] 2.62 10*6/uL Low 4.20-6.00 [facility] Comment on above: Order Comment: Speci men Type: BLOOD SPECIMENOrdering Facility: [facility] Address: [address] [place] [address] Performed By: #### 5 7021-8 ####[facility] LABCLIA [id number] [place] [id number] LABCLIA [id number] [place] [address] [place] RBC FRAGMENTS Few Abnormal None Seen [facility] Comment on above: Order Comment: Speci men Type: BLOOD SPECIMENOrdering Facility: [facility] Address: [address] [place] [address] Performed By: #### 5 7021-8 ####[facility] LABCLIA [id number] [address] LABCLIA [id number] [place] [address] [place] RED CELL MORPH Reviewed: see result s of individual morphologies Normal [facility] Comment on above: Order Comment: Speci men Type: BLOOD SPECIMENOrdering Facility: [facility] Address: [address] [place] [address] Performed By: #### 5 7021-8 ####[facility] LABCLIA [id number] [address] LABCLIA [id number] [place] [address] [place] WBC (Bld) [#/Vol] 1.64 10*3/uL Low 3.70-11.00 [facility] Comment on above: Order Comment: Speci men Type: BLOOD SPECIMENOrdering Facility: [facility] Address: [address] [place] [address] Result Comment: Samp le checked for clot Performed By: #### 5 7021-8 ####[facility] LABCLIA [id number] [address] LABCLIA [id number] [place] [address] [place] CNOVSPon 06-17-2022 CNOVSP Normal [facility] CNPNon 06-17-2022 CNPN Normal [facility] Comprehensive metabolic 2000 panelon 06-17-2022 Albumin [Mass/Vol] 4.0 g/dL Normal 3.9-4.9 [facility] Comment on above: Order Comment: Speci men Type: BLOOD SPECIMENOrdering Facility: [facility] [facility] Address: [address] [place] [address] Performed By: #### 2 4323-8 ####[facility] LABCLIA [id number] [place] [address] ALP [Catalytic activity/Vol] 108 U/L Normal 38-113 [facility] Comment on above: Order Comment: Speci men Type: BLOOD SPECIMENOrdering Facility: [facility] Address: [address] [place] [address] Performed By: #### 2 4323-8 ####[facility] LABCLIA [id number] [place] [address] ALT [Catalytic activity/Vol] 42 U/L Normal 10-54 [facility] Comment on above: Order Comment: Speci men Type: BLOOD SPECIMENOrdering Facility: [facility] Address: [address] [place] [address] Performed By: #### 2 4323-8 ####[facility] LABCLIA [id number] [place] [address] Anion gap [Moles/Vol] 8 mmol/L Low 9-18 [facility] Comment on above: Order Comment: Speci men Type: BLOOD SPECIMENOrdering Facility: [facility] Address: [address] [place] [address] Performed By: #### 2 4323-8 ####[facility] LABCLIA [id number] [place] [address] AST [Catalytic activity/Vol] 22 U/L Normal 14-40 [facility] Comment on above: Order Comment: Speci men Type: BLOOD SPECIMENOrdering Facility: [facility] Address: [address] [address] Performed By: #### 2 4323-8 ####[facility] LABCLIA [id number] [place] [address] Bilirubin [Mass/Vol] 0.9 mg/dL Normal 0.2-1.3 [facility] Comment on above: Order Comment: Speci men Type: BLOOD SPECIMENOrdering Facility: [facility] Address: [address] [address] Performed By: #### 2 4323-8 ####[facility] LABCLIA [id number] [place] [address] Calcium [Mass/Vol] 8.9 mg/dL Normal 8.5-10.2 [facility] Comment on above: Order Comment: Speci men Type: BLOOD SPECIMENOrdering Facility: [facility] Address: [address] [address] Performed By: #### 2 4323-8 ####[facility] LABCLIA [id number] [place] [address] Chloride [Moles/Vol] 103 mmol/L Normal 97-105 [facility] Comment on above: Order Comment: Speci men Type: BLOOD SPECIMENOrdering Facility: [facility] Address: [address] [address] Performed By: #### 2 4323-8 ####[facility] LABCLIA [id number] [place] [address] CO2 [Moles/Vol] 31 mmol/L High 22-30 [facility] Comment on above: Order Comment: Speci men Type: BLOOD SPECIMENOrdering Facility: [facility] Address: [address] [address] Performed By: #### 2 4323-8 ####[facility] LABCLIA [id number] [place] [address] Creatinine [Mass/Vol] 1.52 mg/dL High 0.73-1.22 [facility] Comment on above: Order Comment: Davi avendaño Type: BLOOD SPECIMENOrdering Facility: [facility] Address: [address] [address] Performed By: #### 2 4323-8 ####[facility] LABCLIA [id number] [place] [address] ESTIMATED GLOMERULAR FILTRATION RATE 45 mL/min/1.73m??? Low >=60 [facility] Comment on above: Order Comment: Davi avendaño Type: BLOOD SPECIMENOrdering Facility: [facility] Address: [address] [address] Result Comment: Faye mated Glomerular Filtration Rate [...] actual GFR. Performed By: #### 2 4323-8 ####[facility] LABCLIA [id number] [place] [address] Glucose [Mass/Vol] 141 mg/dL High 74-99 [facility] Comment on above: Order Comment: Davi kateryna Type: BLOOD SPECIMENOrdering Facility: [facility] Address: [address] [place] [address] Result Comment: The [place] [employer] (ADA) provides guidance for cutoff [...] Standards of Medical Care in Diabetes 2016, [place] [employer]. Diabetes Care. 2016.39(Suppl 1). Performed By: #### 2 4323-8 ####[facility] LABCLIA [id number] [place] [address] Potassium [Moles/Vol] 3.9 mmol/L Normal 3.7-5.1 [facility] Comment on above: Order Comment: Speci men Type: BLOOD SPECIMENOrdering Facility: [facility] Address: [address] [place] [address] Performed By: #### 2 4323-8 ####[facility] LABCLIA [id number] [place] [address] Protein [Mass/Vol] 6.3 g/dL Normal 6.3-8.0 [facility] Comment on above: Order Comment: Speci men Type: BLOOD SPECIMENOrdering Facility: [facility] Address: [address] [place] [address] Performed By: #### 2 4323-8 ####[facility] LABCLIA [id number] [place] [address] Sodium [Moles/Vol] 142 mmol/L Normal 136-144 [facility] Comment on above: Order Comment: Speci men Type: BLOOD SPECIMENOrdering Facility: [facility] Address: [address] [place] [address] Performed By: #### 2 4323-8 ####[facility] LABCLIA [id number] [place] [address] Urea nitrogen [Mass/Vol] 24 mg/dL Normal 9-24 [facility] Comment on above: Order Comment: Speci men Type: BLOOD SPECIMENOrdering Facility: [facility] Address: [address] [place] [address] Performed By: #### 2 4323-8 ####[facility] LABCLIA [id number] [place] [address] HEMOGLOBIN AND HEMATOCRITon 06-17-2022 Hematocrit (Bld) [Volume fraction] 25.0 % Critically low 42.0-54.0 [facility] Comment on above: Performed By: #### T NS, PRBC #### [facility] [address] [place] [address] Dr. Benito To Hemoglobin (Bld) [Mass/Vol] 8.0 g/dL Critically low 14.0-18.0 [facility] Comment on above: Performed By: #### T NS, PRBC #### [facility] [address] [place] [address] Dr. Benito To LDH SerPl-cCncon 06-17-2022 LDH [Catalytic activity/Vol] 199 U/L Normal 135-225 [facility] Comment on above: Order Comment: Speci men Type: BLOOD SPECIMENOrdering Facility: [facility] Address: [address] [place] [address] Performed By: #### 2 532-0 ####[facility] LABCLIA [id number] [place] [address] TYPE AND SCREENon 06-17-2022 TYPE AND SCREEN Negative Normal [facility] Comment on above: Performed By: #### T NS, PRBC #### [facility] [address] [place] [address] Dr. Benito To HEMOGLOBIN AND HEMATOCRITon 06-11-2022 Hematocrit (Bld) [Volume fraction] 21.3 % Critically low 42.0-54.0 [facility] Comment on above: Performed By: #### T NS, PRBC #### [facility] [address] [place] [address] Dr. Benito To Hemoglobin (Bld) [Mass/Vol] 7.1 g/dL Critically low 14.0-18.0 [facility] Comment on above: Performed By: #### T NS, PRBC #### [facility] [address] [place] [address] Dr. Benito To TYPE AND SCREENon 06-11-2022 TYPE AND SCREEN Negative Normal [facility] Comment on above: Performed By: #### P RBC, TNS #### [facility] [address] [place] [address] Dr. Benito To CBC W Auto Differential pane l (Bld)on 06-10-2022 Anisocytosis Ql (Bld) Present Normal [facility] Comment on above: Order Comment: Speci men Type: BLOOD SPECIMENOrdering Facility: [facility] Address: [address] [place] [address] Performed By: #### 5 7021-8 ####[facility] LABCLIA [id number] [address] LABCLIA [id number] [place] [address] [place] Basophils (Bld) [#/Vol] 0.02 10*3/uL Normal <0.11 [facility] Comment on above: Order Comment: Speci men Type: BLOOD SPECIMENOrdering Facility: [facility] Address: [address] [place] [address] Performed By: #### 5 7021-8 ####[facility] LABCLIA [id number] [address] LABCLIA [id number] [place] [address] [place] Basophils/100 WBC (Bld) 2.0 % Normal [facility] Comment on above: Order Comment: Speci men Type: BLOOD SPECIMENOrdering Facility: [facility] Address: [address] [place], [place] [address] Performed By: #### 5 7021-8 ####[facility] LABCLIA [id number] [address] LABCLIA [id number] [place] [address] [place] Differential cell count method Nom (Bld) Manual Normal [facility] Comment on above: Order Comment: Speci men Type: BLOOD SPECIMENOrdering Facility: [facility] Address: [address] [place] [address] Performed By: #### 5 7021-8 ####[facility] LABCLIA [id number] [address] LABCLIA [id number] [place] [address] [place] Eosinophils (Bld) [#/Vol] 0.03 10*3/uL Normal <0.46 [facility] Comment on above: Order Comment: Speci men Type: BLOOD SPECIMENOrdering Facility: [facility] Address: [address] Performed By: #### 5 7021-8 ####[facility] LABCLIA [id number] [address] LABCLIA [id number] [place] [address] [place] Eosinophils/100 WBC (Bld) 3.0 % Normal [facility] Comment on above: Order Comment: Speci men Type: BLOOD SPECIMENOrdering Facility: [facility] Address: [address] Performed By: #### 5 7021-8 ####[facility] LABCLIA [id number] [address] LABCLIA [id number] [place] [address] [place] Erythrocyte distribution width (RBC) [Ratio] 21.2 % High 11.5-15.0 [facility] Comment on above: Order Comment: Speci men Type: BLOOD SPECIMENOrdering Facility: [facility] Address: [address] [place] [address] Performed By: #### 5 7021-8 ####[facility] LABCLIA [id number] [address] LABCLIA [id number] [place] [address] [place] [address] [place] Hematocrit (Bld) [Volume fraction] 22.8 % Low 39.0-51.0 [facility] Comment on above: Order Comment: Speci men Type: BLOOD SPECIMENOrdering Facility: [facility] Address: [address] [place] [address] Performed By: #### 5 7021-8 ####[facility] LABCLIA [id number] [address] LABCLIA [id number] [place] [address] [place] Hemoglobin (Bld) [Mass/Vol] 7.3 g/dL Low 13.0-17.0 [facility] Comment on above: Order Comment: Speci men Type: BLOOD SPECIMENOrdering Facility: [facility] Address: [address] [place] [address] Performed By: #### 5 7021-8 ####[facility] LABCLIA [id number] [address] LABCLIA [id number] [place] [address] [place] Lymphocytes (Bld) [#/Vol] 0.64 10*3/uL Low 1.00-4.00 [facility] Comment on above: Order Comment: Speci men Type: BLOOD SPECIMENOrdering Facility: [facility] Address: [address] [place], [place] [address] Performed By: #### 5 7021-8 ####[facility] LABCLIA [id number] [address] LABCLIA [id number] [place] [address] [place] Lymphocytes/100 WBC (Bld) 55.0 % Normal [facility] Comment on above: Order Comment: Speci men Type: BLOOD SPECIMENOrdering Facility: [facility] Address: [address] [place], [place] [address] Performed By: #### 5 7021-8 ####[facility] LABCLIA [id number] [address] LABCLIA [id number] [place] [address] [place] MCH (RBC) [Entitic mass] 32.4 pg Normal 26.0-34.0 [facility] Comment on above: Order Comment: Speci men Type: BLOOD SPECIMENOrdering Facility: [facility] Address: [address] [address] Performed By: #### 5 7021-8 ####[facility] LABCLIA [id number] [address] LABCLIA [id number] [address] [place] MCHC (RBC) [Mass/Vol] 32.0 g/dL Normal 30.5-36.0 [facility] Comment on above: Order Comment: Speci men Type: BLOOD SPECIMENOrdering Facility: [facility] Address: [address] [place] [address] Performed By: #### 5 7021-8 ####[facility] LABCLIA [id number] [address] LABCLIA [id number] [place] [address] [place] MCV (RBC) [Entitic vol] 101.3 fL High 80.0-100.0 [facility] Comment on above: Order Comment: Speci men Type: BLOOD SPECIMENOrdering Facility: [facility] Address: [address] [place] [address] Performed By: #### 5 7021-8 ####[facility] LABCLIA [id number] [address] LABCLIA [id number] [place] [address] [place] Monocytes (Bld) [#/Vol] 0.14 10*3/uL Normal <0.87 [facility] Comment on above: Order Comment: Speci men Type: BLOOD SPECIMENOrdering Facility: [facility] Address: [address] [place] [address] Performed By: #### 5 7021-8 ####[facility] LABCLIA [id number] [address] LABCLIA [id number] [place] [address] [place] Monocytes/100 WBC (Bld) 12.0 % Normal [facility] Comment on above: Order Comment: Speci men Type: BLOOD SPECIMENOrdering Facility: [facility] Address: [address] [place] [address] Performed By: #### 5 7021-8 ####[facility] LABCLIA [id number] [address] LABCLIA [id number] [place] [address] [place] Neutrophils (Bld) [#/Vol] 0.32 10*3/uL Low 1.45-7.50 [facility] Comment on above: Order Comment: Speci men Type: BLOOD SPECIMENOrdering Facility: [facility] Address: [address] [place], [place] [address] Performed By: #### 5 7021-8 ####[facility] LABCLIA [id number] [address] LABCLIA [id number] [place] [address] [place] Neutrophils/100 WBC (Bld) 28.0 % Normal [facility] Comment on above: Order Comment: Speci men Type: BLOOD SPECIMENOrdering Facility: [facility] Address: [address] [place], [place] [address] Performed By: #### 5 7021-8 ####[facility] LABCLIA [id number] [address] LABCLIA [id number] [place] [address] [place] Nucleated RBC (Bld) [#/Vol] 10*3/uL Normal <0.01 [facility] Comment on above: Order Comment: Speci men Type: BLOOD SPECIMENOrdering Facility: [facility] Address: [address] Performed By: #### 5 7021-8 ####[facility] LABCLIA [id number] [address] LABCLIA [id number] [place] [address] [place] Nucleated RBC/100 WBC (Bld) [Ratio] 0.0 /100 WBC Normal [facility] Comment on above: Order Comment: Speci men Type: BLOOD SPECIMENOrdering Facility: [facility] Address: [address] [place] [address] Performed By: #### 5 7021-8 ####[facility] LABCLIA [id number] [address] LABCLIA [id number] [place] [address] [place] Ovalocytes LM Ql (Bld) Few Normal [facility] Comment on above: Order Comment: Speci men Type: BLOOD SPECIMENOrdering Facility: [facility] Address: [address] [place] [address] Performed By: #### 5 7021-8 ####[facility] LABCLIA [id number] [address] LABCLIA [id number] [place] [address] [place] Platelet mean volume (Bld) [Entitic vol] Normal [facility] Comment on above: Order Comment: Speci men Type: BLOOD SPECIMENOrdering Facility: [facility] Address: [address] [place] [address] Result Comment: Unab le to Report. Performed By: #### 5 7021-8 ####[facility] LABCLIA [id number] [address] LABCLIA [id number] [place] [address] [place] Platelets (Bld) [#/Vol] 40 10*3/uL Low 150-400 [facility] Comment on above: Order Comment: Speci men Type: BLOOD SPECIMENOrdering Facility: [facility] Address: [address] [place] [address] Result Comment: Samp le checked for clot Performed By: #### 5 7021-8 ####[facility] LABCLIA [id number] [address] LABCLIA [id number] [place] [address] [place] Platelets Estimate (Bld) [#/Vol] Decreased Normal [facility] Comment on above: Order Comment: Speci men Type: BLOOD SPECIMENOrdering Facility: [facility] Address: [address] [place] [address] Performed By: #### 5 7021-8 ####[facility] LABCLIA [id number] [address] LABCLIA [id number] [place] [address] [place] Polychromasia LM Ql (Bld) Slight Normal [facility] Comment on above: Order Comment: Speci men Type: BLOOD SPECIMENOrdering Facility: [facility] Address: [address] [place] [address] Performed By: #### 5 7021-8 ####[facility] LABCLIA [id number] [place] [id number] LABCLIA [id number] [place] [address] [place] RBC (Bld) [#/Vol] 2.25 10*6/uL Low 4.20-6.00 [facility] Comment on above: Order Comment: Speci men Type: BLOOD SPECIMENOrdering Facility: [facility] Address: [address] [place] [address] Performed By: #### 5 7021-8 ####[facility] LABCLIA [id number] [address] LABCLIA [id number] [place] [address] [place] RBC FRAGMENTS Few Abnormal None Seen [facility] Comment on above: Order Comment: Speci men Type: BLOOD SPECIMENOrdering Facility: [facility] Address: [address] [place] [address] Performed By: #### 5 7021-8 ####[facility] LABCLIA [id number] [address] LABCLIA [id number] [place] [address] [place] RED CELL MORPH Reviewed: see result s of individual morphologies Normal [facility] Comment on above: Order Comment: Speci men Type: BLOOD SPECIMENOrdering Facility: [facility] Address: [address] [place] [address] Performed By: #### 5 7021-8 ####[facility] LABCLIA [id number] [address] LABCLIA [id number] [place] [address] [place] WBC (Bld) [#/Vol] 1.16 10*3/uL Low 3.70-11.00 [facility] Comment on above: Order Comment: Speci men Type: BLOOD SPECIMENOrdering Facility: [facility] Address: [address] [address] Result Comment: [facility] clot Performed By: #### 5 7021-8 ####[facility] LABCLIA [id number] [place], [place] [address]AMMNPVXYRAC[facility] LABCLIA [id number] [facility] [place] [address] [place] CNOVSPon 06-10-2022 CNOVSP Normal [facility] Comprehensive metabolic 2000 panelon 06-10-2022 Albumin [Mass/Vol] 4.0 g/dL Normal 3.9-4.9 [facility] Comment on above: Order Comment: Speci men Type: BLOOD SPECIMENOrdering Facility: [facility] Address: [address] [place] [address] Performed By: #### 2 4323-8, 2532-0 ####[facility] LABCLIA [id number] [place] [address] ALP [Catalytic activity/Vol] 108 U/L Normal 38-113 [facility] Comment on above: Order Comment: Speci men Type: BLOOD SPECIMENOrdering Facility: [facility] Address: [address] [place] [address] Performed By: #### 2 4323-8, 2532-0 ####[facility] LABCLIA [id number] [place] [address] ALT [Catalytic activity/Vol] 40 U/L Normal 10-54 [facility] Comment on above: Order Comment: Speci men Type: BLOOD SPECIMENOrdering Facility: [facility] Address: [address] [place] [address] Performed By: #### 2 4323-8, 2532-0 ####[facility] LABCLIA [id number] [place] [address] Anion gap [Moles/Vol] 8 mmol/L Low 9-18 [facility] Comment on above: Order Comment: Speci men Type: BLOOD SPECIMENOrdering Facility: [facility] Address: [address] [address] Performed By: #### 2 4323-8, 0 ####J[facility]USMIRAFA [facility] LABCLIA [id number] [place] [address] AST [Catalytic activity/Vol] 18 U/L Normal 14-40 [facility] Comment on above: Order Comment: Speci men Type: BLOOD SPECIMENOrdering Facility: [facility] Address: [address] Performed By: #### 2 4323-8, 0 ####[facility] LABCLIA [id number] [place] [address] Bilirubin [Mass/Vol] 1.1 mg/dL Normal 0.2-1.3 [facility] Comment on above: Order Comment: Speci men Type: BLOOD SPECIMENOrdering Facility: [facility] Address: [address] Performed By: #### 2 4323-8, 0 ####[facility] LABIA [id number] [place] [address] Calcium [Mass/Vol] 9.0 mg/dL Normal 8.5-10.2 [facility] Comment on above: Order Comment: Speci men Type: BLOOD SPECIMENOrdering Facility: [facility] Address: [address] Performed By: #### 2 4323-8, 2531-0 ####[facility] LABCLIA [id number] [place] [address] Chloride [Moles/Vol] 104 mmol/L Normal 97-105 [facility] Comment on above: Order Comment: Speci men Type: BLOOD SPECIMENOrdering Facility: [facility] Address: [address] Performed By: #### 2 432-8, ####[facility] LABCLIA [id number] [place] [address] CO2 [Moles/Vol] 30 mmol/L Normal 22-30 [facility] Comment on above: Order Comment: Speci men Type: BLOOD SPECIMENOrdering Facility: [facility] Address: [address] [place] [address] Performed By: #### 2 4328, ####[facility] LABCLIA [id number] [place] [address] Creatinine [Mass/Vol] 1.60 mg/dL High 0.73-1.22 [facility] Comment on above: Order Comment: Speci men Type: BLOOD SPECIMENOrdering Facility: [facility] Address: [address] [place] [address] Performed By: #### 2 4328, ####[facility] LABCLIA [id number] [place] [address] ESTIMATED GLOMERULAR FILTRATION RATE 42 mL/min/1.73m??? Low >=60 [facility] Comment on above: Order Comment: Speci men Type: BLOOD SPECIMENOrdering Facility: [facility] Address: [address] [place] [address] Result Comment: Faye mated Glomerular Filtration Rate [...] actual GFR. Performed By: #### 2 4323-8, ####[facility] LABCLIA [id number] [place] [address] Glucose [Mass/Vol] 139 mg/dL High 74-99 [facility] Comment on above: Order Comment: Speci men Type: BLOOD SPECIMENOrdering Facility: [facility] Address: [address] [place], [place] [address] Result Comment: The [place] Diabetes Association (ADA) provides guidance for cutoff [...] Standards of Medical Care in Diabetes 2016, [place] [employer]. Diabetes Care. 2016.39(Suppl 1). Performed By: #### 2 4323-8, ####[facility] LABCLIA [id number] [place] [address] Potassium [Moles/Vol] 3.8 mmol/L Normal 3.7-5.1 [facility] Comment on above: Order Comment: Speci men Type: BLOOD SPECIMENOrdering Facility: [facility] Address: [address] [place], [place] [address] Performed By: #### 2 4328, ####[facility] LABCLIA [id number] [place] [address] Protein [Mass/Vol] 6.4 g/dL Normal 6.3-8.0 [facility] Comment on above: Order Comment: Speci men Type: BLOOD SPECIMENOrdering Facility: [facility] Address: [address] [place], [place] [address] Performed By: #### 2 4323-8, ####[facility] LABCLIA [id number] [place] [address] Sodium [Moles/Vol] 142 mmol/L Normal 136-144 [facility] Comment on above: Order Comment: Speci men Type: BLOOD SPECIMENOrdering Facility: [facility] Address: [address] [id number] Performed By: #### 2 4323-8, 2532-0 ####[facility] LABCLIA [id number] [place] [address] Urea nitrogen [Mass/Vol] 27 mg/dL High 9-24 [facility] Comment on above: Order Comment: Speci men Type: BLOOD SPECIMENOrdering Facility: [facility] Address: [address] [place] [address] Performed By: #### 2 4323-8, 2532-0 ####[facility] LABCLIA [id number] [place] [address] LDH SerPl-cCncon 06-10-2022 LDH [Catalytic activity/Vol] 200 U/L Normal 135-225 [facility] Comment on above: Order Comment: Speci men Type: BLOOD SPECIMENOrdering Facility: [facility] Address: [address] [place] [address] Performed By: #### 2 4323-8, 2531-0 ####[facility] LABCLIA [id number] [place] [address] CNPNon 06-07-2022 CNPN Normal [facility] HEMOGLOBIN AND HEMATOCRITon 06-07-2022 Hematocrit (Bld) [Volume fraction] 23.0 % Critically low 42.0-54.0 [facility] Comment on above: Performed By: #### H H #### [facility] [address] [place] [address] Dr. Benito To Hemoglobin (Bld) [Mass/Vol] 7.7 g/dL Critically low 14.0-18.0 [facility] Comment on above: Performed By: #### H H #### [facility] [address] [place] [address] Dr. Benito To PRBC LEUKOREDUCEDon 06-06-20 ABO and Rh group Nom (Bld) Cross Match Result Compatible Unit Blood Type A Pos Unit Number [id number] Status Information Transfused Product ID Red Blood Cells Product Code [id number] Cross Match Result Compatible Unit Blood Type O Neg Unit Number [id number] Status Information Transfused Product ID Red Blood Cells Product Code [id number] Normal [facility] Comment on above: Performed By: #### H H #### [facility] [address] [address] [address] Benito To HEMOGLOBIN AND HEMATOCRITon 06-04-2022 Hematocrit (Bld) [Volume fraction] 20.4 % Critically low 42.0-54.0 [facility] Comment on above: Performed By: #### H GBHCT #### [facility] [address] [address] [address] Benito To Hemoglobin (Bld) [Mass/Vol] 6.5 g/dL Critically low 14.0-18.0 [facility] Comment on above: Performed By: #### H GBHCT #### [facility] [address] [place] [address] Dr. Benito To TYPE AND SCREENon 06-04-2022 TYPE AND SCREEN Negative Normal [facility] Comment on above: Performed By: #### H H #### [facility] [address] [address] [address] Benito To CBC W Auto Differential pane l (Bld)on 06-03-2022 Anisocytosis Ql (Bld) Present Normal [facility] Comment on above: Order Comment: Speci men Type: BLOOD SPECIMENOrdering Facility: [facility] Address: [address] [place] [address] Performed By: #### 5 7021-8 ####[facility] LABCLIA [id number] [place], [place] [address]EMBAQIZAIAC[facility] LABCLIA [id number] [place] [address] [place] Basophils (Bld) [#/Vol] 0.02 10*3/uL Normal <0.11 [facility] Comment on above: Order Comment: Speci men Type: BLOOD SPECIMENOrdering Facility: [facility] Address: [address] [place] [address] Performed By: #### 5 7021-8 ####[facility] LABCLIA [id number] [address] LABCLIA [id number] [place] [address] [place] Basophils/100 WBC (Bld) 1.3 % Normal [facility] Comment on above: Order Comment: Speci men Type: BLOOD SPECIMENOrdering Facility: [facility] Address: [address] Performed By: #### 5 7021-8 ####[facility] LABCLIA [id number] [address] LABCLIA [id number] [place] [address] [place] Differential cell count method Nom (Bld) Manual Normal [facility] Comment on above: Order Comment: Speci men Type: BLOOD SPECIMENOrdering Facility: [facility] Address: [address] Performed By: #### 5 7021-8 ####[facility] LABCLIA [id number] [address] LABCLIA [id number] [place] [address] [place] Eosinophils (Bld) [#/Vol] 0.00 10*3/uL Normal <0.46 [facility] Comment on above: Order Comment: Speci men Type: BLOOD SPECIMENOrdering Facility: [facility] Address: [address] Performed By: #### 5 7021-8 ####[facility] LABCLIA [id number] [address] LABCLIA [id number] [place] [address] [place] Eosinophils/100 WBC (Bld) 0.0 % Normal [facility] Comment on above: Order Comment: Speci men Type: BLOOD SPECIMENOrdering Facility: [facility] Address: [address] [place] [address] Performed By: #### 5 7021-8 ####[facility]ISS[facility]ELDROSALIO [facility] LABCLIA [id number] [address] LABCLIA [id number] [place] [address] [place] Erythrocyte distribution width (RBC) [Ratio] 23.2 % High 11.5-15.0 [facility] Comment on above: Order Comment: Speci men Type: BLOOD SPECIMENOrdering Facility: [facility] Address: [address] [place] [address] Performed By: #### 5 7021-8 ####[facility] LABCLIA [id number] [address] LABCLIA [id number] [place] [address] [place] Hematocrit (Bld) [Volume fraction] 20.7 % Low 39.0-51.0 [facility] Comment on above: Order Comment: Speci men Type: BLOOD SPECIMENOrdering Facility: [facility] Address: [address] [place] [address] Performed By: #### 5 7021-8 ####[facility] LABCLIA [id number] [address] LABCLIA [id number] [place] [address] [place] Hemoglobin (Bld) [Mass/Vol] 6.5 g/dL Low 13.0-17.0 [facility] Comment on above: Order Comment: Speci men Type: BLOOD SPECIMENOrdering Facility: [facility] Address: [address] [place] [address] Performed By: #### 5 7021-8 ####[facility] LABCLIA [id number] [address] LABCLIA [id number] [place] [address] [place] Lymphocytes (Bld) [#/Vol] 0.82 10*3/uL Low 1.00-4.00 [facility] Comment on above: Order Comment: Speci men Type: BLOOD SPECIMENOrdering Facility: [facility] Address: [address] [place] [address] Performed By: #### 5 7021-8 ####[facility] LABCLIA [id number] [address] LABCLIA [id number] [place] [address] [place] Lymphocytes/100 WBC (Bld) 59.2 % Normal [facility] Comment on above: Order Comment: Speci men Type: BLOOD SPECIMENOrdering Facility: [facility] Address: [address] [place] [address] Performed By: #### 5 7021-8 ####[facility] LABCLIA [id number] [address] LABCLIA [id number] [place] [address] [place] MCH (RBC) [Entitic mass] 32.3 pg Normal 26.0-34.0 [facility] Comment on above: Order Comment: Speci men Type: BLOOD SPECIMENOrdering Facility: [facility] Address: [address] [place], [place] [address] Performed By: #### 5 7021-8 ####[facility] LABCLIA [id number] [address] LABCLIA [id number] [place] [address] [place] MCHC (RBC) [Mass/Vol] 31.4 g/dL Normal 30.5-36.0 [facility] Comment on above: Order Comment: Speci men Type: BLOOD SPECIMENOrdering Facility: [facility] Address: [address] [place] [address] Performed By: #### 5 7021-8 ####[facility] LABCLIA [id number] [address] LABCLIA [id number] [place] [address] [place] MCV (RBC) [Entitic vol] 103.0 fL High 80.0-100.0 [facility] Comment on above: Order Comment: Speci men Type: BLOOD SPECIMENOrdering Facility: [facility] Address: [address] [place] [address] Performed By: #### 5 7021-8 ####[facility] LABCLIA [id number] [address] LABCLIA [id number] [place] [address] [place] Monocytes (Bld) [#/Vol] 0.09 10*3/uL Normal <0.87 [facility] Comment on above: Order Comment: Speci men Type: BLOOD SPECIMENOrdering Facility: [facility] Address: [address] [place], [place] [address] Performed By: #### 5 7021-8 ####[facility] LABCLIA [id number] [address] LABCLIA [id number] [place] [address] [place] Monocytes/100 WBC (Bld) 6.6 % Normal [facility] Comment on above: Order Comment: Speci men Type: BLOOD SPECIMENOrdering Facility: [facility] Address: [address] [place], [place] [address] Performed By: #### 5 7021-8 ####[facility] LABCLIA [id number] [address] LABCLIA [id number] [place] [address] [place] MYELO% 0.4 % Normal [facility] Comment on above: Order Comment: Speci men Type: BLOOD SPECIMENOrdering Facility: [facility] Address: [address] [place] [address] Performed By: #### 5 7021-8 ####MARINARAFA [facility] LABCLIA [id number] [address] LABCLIA [id number] [place] [address] [place] Neutrophils (Bld) [#/Vol] 0.45 10*3/uL Low 1.45-7.50 [facility] Comment on above: Order Comment: Speci men Type: BLOOD SPECIMENOrdering Facility: [facility] Address: [address] [place], [place] [address] Performed By: #### 5 7021-8 ####[facility] LABCLIA [id number] [address] LABCLIA [id number] [place] [address] [place] Neutrophils/100 WBC (Bld) 32.5 % Normal [facility] Comment on above: Order Comment: Speci men Type: BLOOD SPECIMENOrdering Facility: [facility] Address: [address] [place] [address] Performed By: #### 5 7021-8 ####[facility] LABCLIA [id number] [address] LABCLIA [id number] [place] [address] [place] Nucleated RBC (Bld) [#/Vol] 10*3/uL Normal <0.01 [facility] Comment on above: Order Comment: Speci men Type: BLOOD SPECIMENOrdering Facility: [facility] Address: [address] [place] [address] Result Comment: This result was previously suppressed from the chart. Performed By: #### 5 7021-8 ####[facility] LABCLIA [id number] [address] LABCLIA [id number] [place] [address] [place] Nucleated RBC/100 WBC (Bld) [Ratio] 0.0 /100 WBC Normal [facility] Comment on above: Order Comment: Speci men Type: BLOOD SPECIMENOrdering Facility: [facility] Address: [address] [place] [address] Performed By: #### 5 7021-8 ####[facility] LABCLIA [id number] [address] LABCLIA [id number] [place] [address] [place] Ovalocytes LM Ql (Bld) Few Normal [facility] Comment on above: Order Comment: Speci men Type: BLOOD SPECIMENOrdering Facility: [facility] Address: [address] [place] [address] Performed By: #### 5 7021-8 ####[facility] LABCLIA [id number] [address] LABCLIA [id number] [place] [address] [place] Platelet mean volume (Bld) [Entitic vol] Normal [facility] Comment on above: Order Comment: Speci men Type: BLOOD SPECIMENOrdering Facility: [facility] Address: [address] [place] [address] Result Comment: Unab le to Report. Performed By: #### 5 7021-8 ####[facility] LABCLIA [id number] [place] [id number] LABCLIA [id number] [place] [address] [place] Platelets (Bld) [#/Vol] 36 10*3/uL Low 150-400 [facility] Comment on above: Order Comment: Speci men Type: BLOOD SPECIMENOrdering Facility: [facility] Address: [address] [place] [address] Result Comment: Samp le checked for clot Performed By: #### 5 7021-8 ####JESUSMIRAFA [facility] LABCLIA [id number] [address] LABCLIA [id number] [place] [address] [place] Platelets Estimate (Bld) [#/Vol] Decreased Normal [facility] Comment on above: Order Comment: Speci men Type: BLOOD SPECIMENOrdering Facility: [facility] Address: [address] [place] [address] Performed By: #### 5 7021-8 ####[facility] LABCLIA [id number] [address] LABCLIA [id number] [place] [address] [place] Polychromasia LM Ql (Bld) Slight Normal [facility] Comment on above: Order Comment: Speci men Type: BLOOD SPECIMENOrdering Facility: [facility] Address: [address] [place] [address] Performed By: #### 5 7021-8 ####[facility] LABCLIA [id number] [address] LABCLIA [id number] [place] [address] [place] RBC (Bld) [#/Vol] 2.01 10*6/uL Low 4.20-6.00 [facility] Comment on above: Order Comment: Speci men Type: BLOOD SPECIMENOrdering Facility: [facility] Address: [address] [place] [address] Performed By: #### 5 7021-8 ####[facility] LABCLIA [id number] [address] LABCLIA [id number] [place] [address] [place] RED CELL MORPH Reviewed: see result s of individual morphologies Normal [facility] Comment on above: Order Comment: Speci men Type: BLOOD SPECIMENOrdering Facility: [facility] Address: [address] [place] [address] Performed By: #### 5 7021-8 ####[facility] LABCLIA [id number] [address] LABCLIA [id number] [place] [address] [place] Variant lymphocytes/100 WBC (Bld) 0.0 % Normal [facility] Comment on above: Order Comment: Speci men Type: BLOOD SPECIMENOrdering Facility: [facility] Address: [address] [place] [address] Performed By: #### 5 7021-8 ####[facility] LABCLIA [id number] [address] LABCLIA [id number] [place] [address] [place] WBC (Bld) [#/Vol] 1.39 10*3/uL Low 3.70-11.00 [facility] Comment on above: Order Comment: Speci men Type: BLOOD SPECIMENOrdering Facility: [facility] Address: [address] [place] [address] Result Comment: Samp le checked for clot Performed By: #### 5 7021-8 ####[facility] LABCLIA [id number] [place], [place] [address]BGHWOKQRNACMC [facility] LABCLIA [id number] [place] [address] [place] WBC Left Shift Ql (Bld) Present Normal [facility] Comment on above: Order Comment: Speci men Type: BLOOD SPECIMENOrdering Facility: [facility] Address: [address] [address] Performed By: #### 5 7021-8 ####[facility] LABCLIA [id number] [place], [place] [address]RERJKBDLZACMC [facility] LABCLIA [id number] [place] [address] [place] CNOVSPon 06-03-2022 CNOVSP Normal [facility] CNPNon 06-03-2022 CNPN Normal [facility] Comprehensive metabolic 2000 panelon 06-03-2022 Albumin [Mass/Vol] 3.7 g/dL Low 3.9-4.9 [facility] Comment on above: Order Comment: Speci men Type: BLOOD SPECIMENOrdering Facility: [facility] Address: [address] [address] Performed By: #### 2 4323-8, 2531-0 ####[facility] LABIA [id number] [place] [address] ALP [Catalytic activity/Vol] 105 U/L Normal 38-113 [facility] Comment on above: Order Comment: Speci men Type: BLOOD SPECIMENOrdering Facility: [facility] Address: [address] Performed By: #### 2 4323-8, 2532-0 ####[facility] LABIA [id number] [place] [address] ALT [Catalytic activity/Vol] 47 U/L Normal 10-54 [facility] Comment on above: Order Comment: Speci men Type: BLOOD SPECIMENOrdering Facility: [facility] Address: [address] [address] Performed By: #### 2 4323-8, 2531-0 ####[facility] LABCLIA [id number] [place] [address] Anion gap [Moles/Vol] 10 mmol/L Normal 9-18 [facility] Comment on above: Order Comment: Speci men Type: BLOOD SPECIMENOrdering Facility: [facility] Address: [address] [place], [place] [address] Performed By: #### 2 4328, 2531-0 ####[facility] LABCLIA [id number] [place] [address] AST [Catalytic activity/Vol] 23 U/L Normal 14-40 [facility] Comment on above: Order Comment: Speci men Type: BLOOD SPECIMENOrdering Facility: [facility] Address: [address] [place] [address] Performed By: #### 2 4328, 2531-0 ####[facility] LABCLIA [id number] [place] [address] Bilirubin [Mass/Vol] 0.6 mg/dL Normal 0.2-1.3 [facility] Comment on above: Order Comment: Speci men Type: BLOOD SPECIMENOrdering Facility: [facility] Address: [address] [place] [address] Performed By: #### 2 4328, 0 ####JESUSMIRAFA [facility] LABCLIA [id number] [place] [address] Calcium [Mass/Vol] 8.8 mg/dL Normal 8.5-10.2 [facility] Comment on above: Order Comment: Speci men Type: BLOOD SPECIMENOrdering Facility: [facility] Address: [address] [place] [address] Performed By: #### 2 43238, 2531-0 ####[facility] LABCLIA [id number] [place] [address] Chloride [Moles/Vol] 103 mmol/L Normal 97-105 [facility] Comment on above: Order Comment: Speci men Type: BLOOD SPECIMENOrdering Facility: [facility] Address: [address] [place] [address] Performed By: #### 2 4323-8, 0 ####[facility] LABCLIA [id number] [place] [address] CO2 [Moles/Vol] 27 mmol/L Normal 22-30 [facility] Comment on above: Order Comment: Speci men Type: BLOOD SPECIMENOrdering Facility: [facility] Address: [address] [place] [address] Performed By: #### 2 4323-8, 0 ####[facility] LABCLIA [id number] [place] [address] Creatinine [Mass/Vol] 1.57 mg/dL High 0.73-1.22 [facility] Comment on above: Order Comment: Speci men Type: BLOOD SPECIMENOrdering Facility: [facility] Address: [address] [place] [address] Performed By: #### 2 4323-8, 0 ####[facility] LABCLIA [id number] [place] [address] ESTIMATED GLOMERULAR FILTRATION RATE 43 mL/min/1.73m??? Low >=60 [facility] Comment on above: Order Comment: Speci men Type: BLOOD SPECIMENOrdering Facility: [facility] Address: [address] [place] [address] Result Comment: Faye mated Glomerular Filtration Rate [...] actual GFR. Performed By: #### 2 4328, ####[facility] LABCLIA [id number] [place] [address] Glucose [Mass/Vol] 152 mg/dL High 74-99 [facility] Comment on above: Order Comment: Speci men Type: BLOOD SPECIMENOrdering Facility: [facility] Address: [address] [place] [address] Result Comment: The [place] [employer] (ADA) provides guidance for cutoff [...] Standards of Medical Care in Diabetes 2016, [place] [employer]. Diabetes Care. 2016.39(Suppl 1). Performed By: #### 2 4328, ####[facility] LABCLIA [id number] [place] [address] Potassium [Moles/Vol] 4.2 mmol/L Normal 3.7-5.1 [facility] Comment on above: Order Comment: Speci men Type: BLOOD SPECIMENOrdering Facility: [facility] Address: [address] [id number] Performed By: #### 2 43210-02, 0 ####[facility] LABIA [id number] [place] [address] Protein [Mass/Vol] 6.2 g/dL Low 6.3-8.0 [facility] Comment on above: Order Comment: Speci men Type: BLOOD SPECIMENOrdering Facility: [facility] Address: [address] [address] Performed By: #### 2 43210-02, 0 ####[facility] LABCLIA [id number] [place] [address] Sodium [Moles/Vol] 140 mmol/L Normal 136-144 [facility] Comment on above: Order Comment: Speci men Type: BLOOD SPECIMENOrdering Facility: [facility] Address: [address] [place] [address] Performed By: #### 2 4323-8, 2532-0 ####[facility] LABCLIA [id number] [place] [address] Urea nitrogen [Mass/Vol] 24 mg/dL Normal 9-24 [facility] Comment on above: Order Comment: Speci men Type: BLOOD SPECIMENOrdering Facility: [facility] Address: [address] [place] [address] Performed By: #### 2 4323-8, 2532-0 ####[facility] LABCLIA [id number] [place] [address] LDH SerPl-cCncon 06-03-2022 LDH [Catalytic activity/Vol] 199 U/L Normal 135-225 [facility] Comment on above: Order Comment: Speci men Type: BLOOD SPECIMENOrdering Facility: [facility] Address: [address] [place] [address] Performed By: #### 2 4323-8, 2532-0 ####[facility] LABIA [id number] [place] [address] PRBC LEUKOREDUCEDon 05-28-20 PRBC LEUKOREDUCED Cross Match Result Compatible Unit Blood Type A Pos Unit Number [id number] Status Information Transfused Product ID Red Blood Cells Product Code [id number] Normal [facility] Comment on above: Performed By: #### T NS, PRBC #### [facility] [address] [place] [address] Benito To CBC W Auto Differential pane l (Bld)on 05-27-2022 Anisocytosis Ql (Bld) Present Normal [facility] Comment on above: Order Comment: Speci men Type: BLOOD SPECIMENOrdering Facility: [facility] Address: [address] [place] [address] Performed By: #### 5 7021-8 ####[facility] LABCLIA [id number] [place] [id number] [facility] LABCLIA [id number] [place] [address] Basophils (Bld) [#/Vol] 0.00 10*3/uL Normal <0.11 [facility] Comment on above: Order Comment: Speci men Type: BLOOD SPECIMENOrdering Facility: [facility] Address: [address] [place] [address] Performed By: #### 5 7021-8 ####[facility] LABCLIA [id number] [address] LABCLIA [id number] [place] [address] Basophils/100 WBC (Bld) 0.0 % Normal [facility] Comment on above: Order Comment: Speci men Type: BLOOD SPECIMENOrdering Facility: [facility] Address: [address] [place] [address] Performed By: #### 5 7021-8 ####[facility] LABCLIA [id number] [address] LABCLIA [id number] [place] [address] Dacrocytes LM Ql (Bld) Few Normal [facility] Comment on above: Order Comment: Speci men Type: BLOOD SPECIMENOrdering Facility: [facility] Address: [address] [place], [place] [address] Performed By: #### 5 7021-8 ####[facility] LABCLIA [id number] [address] LABCLIA [id number] [place] [address] Differential cell count method Nom (Bld) Manual Normal [facility] Comment on above: Order Comment: Speci men Type: BLOOD SPECIMENOrdering Facility: [facility] Address: [address] [place] [address] Performed By: #### 5 7021-8 ####[facility] LABCLIA [id number] [address] LABCLIA [id number] [place] [address] Eosinophils (Bld) [#/Vol] 0.03 10*3/uL Normal <0.46 [facility] Comment on above: Order Comment: Speci men Type: BLOOD SPECIMENOrdering Facility: [facility] Address: [address] [place] [address] Performed By: #### 5 7021-8 ####[facility] LABCLIA [id number] [address] LABCLIA [id number] [place] [address] Eosinophils/100 WBC (Bld) 3.0 % Normal [facility] Comment on above: Order Comment: Speci men Type: BLOOD SPECIMENOrdering Facility: [facility] Address: [address] [place], [place] [address] Performed By: #### 5 7021-8 ####[facility] LABCLIA [id number] [address] LABCLIA [id number] [place] [address] Erythrocyte distribution width (RBC) [Ratio] 23.3 % High 11.5-15.0 [facility] Comment on above: Order Comment: Speci men Type: BLOOD SPECIMENOrdering Facility: [facility] Address: [address] [place] [address] Performed By: #### 5 7021-8 ####[facility] LABCLIA [id number] [address] LABCLIA [id number] [place] [address] Hematocrit (Bld) [Volume fraction] 23.6 % Low 39.0-51.0 [facility] Comment on above: Order Comment: Speci men Type: BLOOD SPECIMENOrdering Facility: [facility] Address: [address] [place] [address] Performed By: #### 5 7021-8 ####[facility] LABCLIA [id number] [address] LABCLIA [id number] [place] [address] Hemoglobin (Bld) [Mass/Vol] 7.6 g/dL Low 13.0-17.0 [facility] Comment on above: Order Comment: Speci men Type: BLOOD SPECIMENOrdering Facility: [facility] Address: [address] [place] [address] Performed By: #### 5 7021-8 ####[facility] LABCLIA [id number] [address] LABCLIA [id number] [place] [id number] Lymphocytes (Bld) [#/Vol] 0.51 10*3/uL Low 1.00-4.00 [facility] Comment on above: Order Comment: Speci men Type: BLOOD SPECIMENOrdering Facility: [facility] Address: [address] [place] [address] Performed By: #### 5 7021-8 ####[facility] LABCLIA [id number] [address] LABCLIA [id number] [place] [address] Lymphocytes/100 WBC (Bld) 47.0 % Normal [facility] Comment on above: Order Comment: Speci men Type: BLOOD SPECIMENOrdering Facility: [facility] Address: [address] [place] [address] Performed By: #### 5 7021-8 ####[facility] LABCLIA [id number] [address] LABCLIA [id number] [place] [address] MCH (RBC) [Entitic mass] 33.0 pg Normal 26.0-34.0 [facility] Comment on above: Order Comment: Speci men Type: BLOOD SPECIMENOrdering Facility: [facility] Address: [address] [place] [address] Performed By: #### 5 7021-8 ####[facility] LABCLIA [id number] [address] LABCLIA [id number] [place] [address] MCHC (RBC) [Mass/Vol] 32.2 g/dL Normal 30.5-36.0 [facility] Comment on above: Order Comment: Speci men Type: BLOOD SPECIMENOrdering Facility: [facility] Address: [address] [place] [address] Performed By: #### 5 7021-8 ####[facility] LABIA [id number] [address] LABIA [id number] [place] [address] MCV (RBC) [Entitic vol] 102.6 fL High 80.0-100.0 [facility] Comment on above: Order Comment: Speci men Type: BLOOD SPECIMENOrdering Facility: [facility] Address: [address] [place], [place] [address] Performed By: #### 5 7021-8 ####[facility] LABCLIA [id number] [address] LABCLIA [id number] [place] [address] Monocytes (Bld) [#/Vol] 0.14 10*3/uL Normal <0.87 [facility] Comment on above: Order Comment: Speci men Type: BLOOD SPECIMENOrdering Facility: [facility] Address: [address] [place] [address] Performed By: #### 5 7021-8 ####[facility] LABCLIA [id number] [address] LABCLIA [id number] [place] [address] Monocytes/100 WBC (Bld) 13.0 % Normal [facility] Comment on above: Order Comment: Speci men Type: BLOOD SPECIMENOrdering Facility: [facility] Address: [address] [place], [place] [address] Performed By: #### 5 7021-8 ####[facility] LABCLIA [id number] [address] LABCLIA [id number] [place] [address] Neutrophils (Bld) [#/Vol] 0.40 10*3/uL Low 1.45-7.50 [facility] Comment on above: Order Comment: Speci men Type: BLOOD SPECIMENOrdering Facility: [facility] Address: [address] [place], [place] [address] Performed By: #### 5 7021-8 ####[facility] LABCLIA [id number] [address] LABCLIA [id number] [place] [address] Neutrophils/100 WBC (Bld) 37.0 % Normal [facility] Comment on above: Order Comment: Speci men Type: BLOOD SPECIMENOrdering Facility: [facility] Address: [address] [place] [address] Performed By: #### 5 7021-8 ####[facility] LABCLIA [id number] [address] LABCLIA [id number] [place] [address] Nucleated RBC (Bld) [#/Vol] 10*3/uL Normal <0.01 [facility] Comment on above: Order Comment: Speci men Type: BLOOD SPECIMENOrdering Facility: [facility] Address: [address] [place] [address] Performed By: #### 5 7021-8 ####[facility] LABCLIA [id number] [address] LABCLIA [id number] [place] [address] Nucleated RBC/100 WBC (Bld) [Ratio] 0.0 /100 WBC Normal [facility] Comment on above: Order Comment: Speci men Type: BLOOD SPECIMENOrdering Facility: [facility] Address: [address] [place], [place] [address] Performed By: #### 5 7021-8 ####[facility] LABCLIA [id number] [address] LABCLIA [id number] [place] [address] Ovalocytes LM Ql (Bld) Few Normal [facility] Comment on above: Order Comment: Speci men Type: BLOOD SPECIMENOrdering Facility: [facility] Address: [address] [place], [place] [address] Performed By: #### 5 7021-8 ####[facility] LABCLIA [id number] [address] LABCLIA [id number] [place] [address] Platelet mean volume (Bld) [Entitic vol] Normal [facility] Comment on above: Order Comment: Speci men Type: BLOOD SPECIMENOrdering Facility: [facility] Address: [address] [place] [address] Result Comment: Unab le to Report. Performed By: #### 5 7021-8 ####[facility] LABCLIA [id number] [address] LABCLIA [id number] [place] [address] Platelets (Bld) [#/Vol] 52 10*3/uL Low 150-400 [facility] Comment on above: Order Comment: Speci men Type: BLOOD SPECIMENOrdering Facility: [facility] Address: [address] [place] [address] Result Comment: Resu lts checked and verified. No clot detected Performed By: #### 5 7021-8 ####[facility] LABCLIA [id number] [address] LABCLIA [id number] [place] [address] Platelets Estimate (Bld) [#/Vol] Decreased Normal [facility] Comment on above: Order Comment: Speci men Type: BLOOD SPECIMENOrdering Facility: [facility] Address: [address] [place] [address] Performed By: #### 5 7021-8 ####[facility] LABCLIA [id number] [address] LABCLIA [id number] [place] [address] RBC (Bld) [#/Vol] 2.30 10*6/uL Low 4.20-6.00 [facility] Comment on above: Order Comment: Speci men Type: BLOOD SPECIMENOrdering Facility: [facility] Address: [address] [place] [address] Performed By: #### 5 7021-8 ####[facility] LABCLIA [id number] [address] LABCLIA [id number] [place] [address] RBC FRAGMENTS Few Abnormal None Seen [facility] Comment on above: Order Comment: Speci men Type: BLOOD SPECIMENOrdering Facility: [facility] Address: [address] [place] [address] Performed By: #### 5 7021-8 ####[facility] LABCLIA [id number] [address] LABCLIA [id number] [place] [address] RED CELL MORPH Reviewed: see result s of individual morphologies Normal [facility] Comment on above: Order Comment: Speci men Type: BLOOD SPECIMENOrdering Facility: [facility] Address: [address] [place] [address] Performed By: #### 5 7021-8 ####[facility] LABCLIA [id number] [address] LABCLIA [id number] [place] [address] WBC (Bld) [#/Vol] 1.09 10*3/uL Low 3.70-11.00 [facility] Comment on above: Order Comment: Speci men Type: BLOOD SPECIMENOrdering Facility: [facility] Address: [address] [place] [address] Result Comment: Resu lts checked and verified. No clot detected Performed By: #### 5 7021-8 ####[facility] LABCLIA [id number] [facility] [id number] [id number] [facility] LABCLIA [id number] [place] [address] Comprehensive metabolic 2000 panelon 05-27-2022 Albumin [Mass/Vol] 4.0 g/dL Normal 3.9-4.9 [facility] Comment on above: Order Comment: Speci men Type: BLOOD SPECIMENOrdering Facility: [facility] Address: [address] [place] [address] Performed By: #### 2 4323-8, 2531-0 ####[facility] LABCLIA [id number] [place] [address] ALP [Catalytic activity/Vol] 105 U/L Normal 38-113 [facility] Comment on above: Order Comment: Speci men Type: BLOOD SPECIMENOrdering Facility: [facility] Address: [address] [place] [address] Performed By: #### 2 4323-8, 2531-0 ####[facility] LABCLIA [id number] [place] [address] ALT [Catalytic activity/Vol] 45 U/L Normal 10-54 [facility] Comment on above: Order Comment: Speci men Type: BLOOD SPECIMENOrdering Facility: [facility] Address: [address] Performed By: #### 2 4323-8, 2531-0 ####[facility] LABCLIA [id number] [place] [address] Anion gap [Moles/Vol] 6 mmol/L Low 9-18 [facility] Comment on above: Order Comment: Speci men Type: BLOOD SPECIMENOrdering Facility: [facility] Address: [address] Performed By: #### 2 4323-8, 2531-0 ####[facility] LABCLIA [id number] [place] [address] AST [Catalytic activity/Vol] 18 U/L Normal 14-40 [facility] Comment on above: Order Comment: Speci men Type: BLOOD SPECIMENOrdering Facility: [facility] Address: [address] [place] [address] Performed By: #### 2 43238, 2531-0 ####[facility] LABCLIA [id number] [place] [address] Bilirubin [Mass/Vol] 0.9 mg/dL Normal 0.2-1.3 [facility] Comment on above: Order Comment: Speci men Type: BLOOD SPECIMENOrdering Facility: [facility] Address: [address] [place] [address] Performed By: #### 2 4328, 2531-0 ####[facility] LABCLIA [id number] [place] [address] Calcium [Mass/Vol] 8.7 mg/dL Normal 8.5-10.2 [facility] Comment on above: Order Comment: Speci men Type: BLOOD SPECIMENOrdering Facility: [facility] Address: [address] [place] [address] Performed By: #### 2 43238, 2531-0 ####[facility] LABCLIA [id number] [place] [address] Chloride [Moles/Vol] 106 mmol/L High 97-105 [facility] Comment on above: Order Comment: Speci men Type: BLOOD SPECIMENOrdering Facility: [facility] Address: [address] [place], [place] [address] Performed By: #### 2 43238, 2531-0 ####[facility] LABCLIA [id number] [place] [address] CO2 [Moles/Vol] 33 mmol/L High 22-30 [facility] Comment on above: Order Comment: Speci men Type: BLOOD SPECIMENOrdering Facility: [facility] Address: [address] [place] [address] Performed By: #### 2 4323-8, 2531-0 ####[facility] LABCLIA [id number] [place] [address] Creatinine [Mass/Vol] 1.64 mg/dL High 0.73-1.22 [facility] Comment on above: Order Comment: Speci men Type: BLOOD SPECIMENOrdering Facility: [facility] Address: [address] [place] [address] Performed By: #### 2 4323-8, 0 ####[facility] LABCLIA [id number] [place] [address] ESTIMATED GLOMERULAR FILTRATION RATE 41 mL/min/1.73m??? Low >=60 [facility] Comment on above: Order Comment: Speci men Type: BLOOD SPECIMENOrdering Facility: [facility] Address: [address] [place] [address] Result Comment: Faye mated Glomerular Filtration Rate [...] GFR. Performed By: #### 2 4323-8, 0 ####[facility] LABCLIA [id number] [place] [address] Glucose [Mass/Vol] 130 mg/dL High 74-99 [facility] Comment on above: Order Comment: Speci men Type: BLOOD SPECIMENOrdering Facility: [facility] Address: [address] [place] [address] Result Comment: The [place] [employer] (ADA) provides guidance for cutoff [...] Standards of Medical Care in Diabetes 2016, [place] [employer]. Diabetes Care. 2016.39(Suppl 1). Performed By: #### 2 4328, ####[facility] LABCLIA [id number] [place] [address] Potassium [Moles/Vol] 3.5 mmol/L Low 3.7-5.1 [facility] Comment on above: Order Comment: Speci men Type: BLOOD SPECIMENOrdering Facility: [facility] Address: [address] [place] [address] Performed By: #### 2 43210-02, ####[facility] LABIA [id number] [place] [address] Protein [Mass/Vol] 6.4 g/dL Normal 6.3-8.0 [facility] Comment on above: Order Comment: Speci men Type: BLOOD SPECIMENOrdering Facility: [facility] Address: [address] [place] [address] Performed By: #### 2 43210-02, ####[facility] LABCLIA [id number] [place] [address] Sodium [Moles/Vol] 145 mmol/L High 136-144 [facility] Comment on above: Order Comment: Speci men Type: BLOOD SPECIMENOrdering Facility: [facility] Address: [address] [place] [address] Performed By: #### 2 4328, 0 ####[facility] LABCLIA [id number] [place] [address] Urea nitrogen [Mass/Vol] 25 mg/dL High 9-24 [facility] Comment on above: Order Comment: Speci men Type: BLOOD SPECIMENOrdering Facility: [facility] Address: [place] [address] Performed By: #### 2 4323-8, 2532-0 ####[facility] LABCLIA [id number] [place] [address] Albumin [Mass/Vol] 4.0 g/dL 3.9 - 4.9 g/dL [facility] ALP [Catalytic activity/Vol] 105 U/L 38 - 113 U/L [facility] ALT [Catalytic activity/Vol] 45 U/L 10 - 54 U/L [facility] Anion gap [Moles/Vol] 6 mmol/L Low 9 - 18 mmol/L [facility] AST [Catalytic activity/Vol] 18 U/L 14 - 40 U/L [facility] Bilirubin [Mass/Vol] 0.9 mg/dL 0.2 - 1.3 mg/dL [facility] Calcium [Mass/Vol] 8.7 mg/dL 8.5 - 10.2 mg/dL [facility] Chloride [Moles/Vol] 106 mmol/L High 97 - 105 mmol/L [facility] CO2 [Moles/Vol] 33 mmol/L High 22 - 30 mmol/L [facility] Creatinine [Mass/Vol] 1.64 mg/dL High 0.73 - 1.22 mg /dL [facility] Estimated Glomerular Filtration Rate 41 mL/min/1.73m Low >=60 mL/min/1.73m [facility] Glucose [Mass/Vol] 130 mg/dL High 74 - 99 mg/dL [facility] Potassium [Moles/Vol] 3.5 mmol/L Low 3.7 - 5.1 mmol /L [facility] Protein [Mass/Vol] 6.4 g/dL 6.3 - 8.0 g/dL [facility] Sodium [Moles/Vol] 145 mmol/L High 136 - 144 mmol/L [facility] Urea nitrogen [Mass/Vol] 25 mg/dL High 9 - 24 mg/dL [facility] LD LACTATE DEHYDROon 022 LDH [Catalytic activity/Vol] 209 U/L 135 - 225 U/L [facility] LDH SerPl-cCncon 05-27-2022 LDH [Catalytic activity/Vol] 209 U/L Normal 135-225 [facility] Comment on above: Order Comment: Speci men Type: BLOOD SPECIMENOrdering Facility: [facility] Address: [address] [place] [address] Performed By: #### 2 4323-8, 2532-0 ####[facility] LABCLIA [id number] [place] [address] CNPNon 05-23-2022 CNPN Normal [facility] HEMOGLOBIN AND HEMATOCRITon 05-23-2022 Hematocrit (Bld) [Volume fraction] 22.7 % Critically low 42.0-54.0 [facility] Comment on above: Performed By: #### T NS, PRBC #### [facility] [address] [place] [address] [address] Benito To Hemoglobin (Bld) [Mass/Vol] 7.3 g/dL Critically low 14.0-18.0 [facility] Comment on above: Performed By: #### T NS, PRBC #### [facility] [address] [address] [address] Benito To TYPE AND SCREENon 05-23-2022 TYPE AND SCREEN Negative Normal [facility] Comment on above: Performed By: #### T NS, PRBC #### [facility] [address] [address] [address] Benito To HISTORY PHYSICALon HISTORY PHYSICAL HNO ID: [id number] Author: Elysia Esposito MD Service: ? Author Type: Physician Type: HANDP Filed: 05/26/2022 11:07 AM Note Text: Please see transcribed note Normal [facility] CBC W Auto Differential pane l (Bld)on 05-20-2022 Anisocytosis Ql (Bld) Present Normal [facility] Comment on above: Order Comment: Speci men Type: BLOOD SPECIMENOrdering Facility: [facility] Address: [address] [place] [address] Performed By: #### 5 7021-8 ####[facility] LABCLIA [id number] [place] [id number] [facility] LABCLIA [id number] [place] [address] Basophils (Bld) [#/Vol] 0.01 10*3/uL Normal <0.11 [facility] Comment on above: Order Comment: Speci men Type: BLOOD SPECIMENOrdering Facility: [facility] Address: [address] [place], [place] [address] Performed By: #### 5 7021-8 ####[facility] LABCLIA [id number] [address] LABCLIA [id number] [place] [address] Basophils/100 WBC (Bld) 0.5 % Normal [facility] Comment on above: Order Comment: Speci men Type: BLOOD SPECIMENOrdering Facility: [facility] Address: [address] [place] [address] Performed By: #### 5 7021-8 ####[facility] LABCLIA [id number] [address] LABCLIA [id number] [place] [address] Dacrocytes LM Ql (Bld) Few Normal [facility] Comment on above: Order Comment: Speci men Type: BLOOD SPECIMENOrdering Facility: [facility] Address: [address] [place] [address] Performed By: #### 5 7021-8 ####[facility] LABCLIA [id number] [place] [id number] [facility] LABCLIA [id number] [place] [address] Differential cell count method Nom (Bld) Manual Normal [facility] Comment on above: Order Comment: Speci men Type: BLOOD SPECIMENOrdering Facility: [facility] Address: [address] [place] [address] Performed By: #### 5 7021-8 ####[facility] LABCLIA [id number] [address] LABCLIA [id number] [place] [address] Eosinophils (Bld) [#/Vol] 0.03 10*3/uL Normal <0.46 [facility] Comment on above: Order Comment: Speci men Type: BLOOD SPECIMENOrdering Facility: [facility] Address: [address] [place] [address] Performed By: #### 5 7021-8 ####[facility] LABCLIA [id number] [address] LABCLIA [id number] [place] [address] Eosinophils/100 WBC (Bld) 1.5 % Normal [facility] Comment on above: Order Comment: Speci men Type: BLOOD SPECIMENOrdering Facility: [facility] Address: [address] [place] [address] Performed By: #### 5 7021-8 ####[facility] LABCLIA [id number] [address] LABCLIA [id number] [place] [address] Erythrocyte distribution width (RBC) [Ratio] 23.9 % High 11.5-15.0 [facility] Comment on above: Order Comment: Speci men Type: BLOOD SPECIMENOrdering Facility: [facility] Address: [address] [place] [address] Performed By: #### 5 7021-8 ####[facility] LABCLIA [id number] [address] LABCLIA [id number] [place] [address] Hematocrit (Bld) [Volume fraction] 23.9 % Low 39.0-51.0 [facility] Comment on above: Order Comment: Speci men Type: BLOOD SPECIMENOrdering Facility: [facility] Address: [address] [place] [address] Performed By: #### 5 7021-8 ####[facility] LABCLIA [id number] [address] LABCLIA [id number] [place] [address] Hemoglobin (Bld) [Mass/Vol] 7.6 g/dL Low 13.0-17.0 [facility] Comment on above: Order Comment: Speci men Type: BLOOD SPECIMENOrdering Facility: [facility] Address: [address] [place], [place] [address] Performed By: #### 5 7021-8 ####[facility] LABCLIA [id number] [address] LABCLIA [id number] [place] [address] Lymphocytes (Bld) [#/Vol] 0.71 10*3/uL Low 1.00-4.00 [facility] Comment on above: Order Comment: Speci men Type: BLOOD SPECIMENOrdering Facility: [facility] Address: [address] [place] [address] Performed By: #### 5 7021-8 ####[facility] LABCLIA [id number] [address] LABCLIA [id number] [place] [address] Lymphocytes/100 WBC (Bld) 40.8 % Normal [facility] Comment on above: Order Comment: Speci men Type: BLOOD SPECIMENOrdering Facility: [facility] Address: [address] [place] [address] Performed By: #### 5 7021-8 ####[facility] LABCLIA [id number] [address] LABCLIA [id number] [place] [address] MCH (RBC) [Entitic mass] 33.0 pg Normal 26.0-34.0 [facility] Comment on above: Order Comment: Speci men Type: BLOOD SPECIMENOrdering Facility: [facility] Address: [address] [place] [address] Performed By: #### 5 7021-8 ####[facility] LABCLIA [id number] [address] LABCLIA [id number] [place] [address] MCHC (RBC) [Mass/Vol] 31.8 g/dL Normal 30.5-36.0 [facility] Comment on above: Order Comment: Speci men Type: BLOOD SPECIMENOrdering Facility: [facility] Address: [address] [place], [place] [address] Performed By: #### 5 7021-8 ####[facility] LABCLIA [id number] [address] LABIA [id number] [place] [address] MCV (RBC) [Entitic vol] 103.9 fL High 80.0-100.0 [facility] Comment on above: Order Comment: Speci men Type: BLOOD SPECIMENOrdering Facility: [facility] Address: [address] [place], [place] [address] Performed By: #### 5 7021-8 ####[facility] LABCLIA [id number] [address] LABCLIA [id number] [place] [address] Monocytes (Bld) [#/Vol] 0.38 10*3/uL Normal <0.87 [facility] Comment on above: Order Comment: Speci men Type: BLOOD SPECIMENOrdering Facility: [facility] Address: [address] [place] [address] Performed By: #### 5 7021-8 ####[facility] LABCLIA [id number] [address] LABCLIA [id number] [place] [address] Monocytes/100 WBC (Bld) 21.7 % Normal [facility] Comment on above: Order Comment: Speci men Type: BLOOD SPECIMENOrdering Facility: [facility] Address: [address] [place] [address] Performed By: #### 5 7021-8 ####[facility] LABCLIA [id number] [address] LABCLIA [id number] [place] [address] Neutrophils (Bld) [#/Vol] 0.61 10*3/uL Low 1.45-7.50 [facility] Comment on above: Order Comment: Speci men Type: BLOOD SPECIMENOrdering Facility: [facility] Address: [address] [place] [address] Performed By: #### 5 7021-8 ####[facility] LABCLIA [id number] [address] LABCLIA [id number] [place] [address] Neutrophils/100 WBC (Bld) 35.5 % Normal [facility] Comment on above: Order Comment: Speci men Type: BLOOD SPECIMENOrdering Facility: [facility] Address: [address] [place] [address] Performed By: #### 5 7021-8 ####[facility] LABCLIA [id number] [address] LABCLIA [id number] [place] [address] Nucleated RBC (Bld) [#/Vol] 10*3/uL Normal <0.01 [facility] Comment on above: Order Comment: Speci men Type: BLOOD SPECIMENOrdering Facility: [facility] Address: [address] [place] [address] Result Comment: This result was previously suppressed from the chart. Performed By: #### 5 7021-8 ####[facility] LABCLIA [id number] [address] LABCLIA [id number] [place] [address] Nucleated RBC/100 WBC (Bld) [Ratio] 0.0 /100 WBC Normal [facility] Comment on above: Order Comment: Speci men Type: BLOOD SPECIMENOrdering Facility: [facility] Address: [address] [place], [place] [address] Performed By: #### 5 7021-8 ####[facility] LABCLIA [id number] [address] LABCLIA [id number] [place] [address] Ovalocytes LM Ql (Bld) Few Normal [facility] Comment on above: Order Comment: Speci men Type: BLOOD SPECIMENOrdering Facility: [facility] Address: [address] [place], [place] [address] Performed By: #### 5 7021-8 ####[facility] LABCLIA [id number] [address] LABCLIA [id number] [place] [address] Platelet mean volume (Bld) [Entitic vol] Normal [facility] Comment on above: Order Comment: Speci men Type: BLOOD SPECIMENOrdering Facility: [facility] Address: [address] [place] [address] Result Comment: Unab le to Report. Performed By: #### 5 7021-8 ####[facility] LABCLIA [id number] [address] LABCLIA [id number] [place] [address] Platelets (Bld) [#/Vol] 69 10*3/uL Low 150-400 [facility] Comment on above: Order Comment: Speci men Type: BLOOD SPECIMENOrdering Facility: [facility] Address: [address] [place] [address] Result Comment: Resu lts checked and verified. No clot detected Performed By: #### 5 7021-8 ####[facility] LABCLIA [id number] [address] LABCLIA [id number] [place] [address] Platelets Estimate (Bld) [#/Vol] Decreased Normal [facility] Comment on above: Order Comment: Speci men Type: BLOOD SPECIMENOrdering Facility: [facility] Address: [address] [place] [address] Performed By: #### 5 7021-8 ####[facility] LABCLIA [id number] [address] LABCLIA [id number] [place] [address] Polychromasia LM Ql (Bld) Slight Normal [facility] Comment on above: Order Comment: Speci men Type: BLOOD SPECIMENOrdering Facility: [facility] Address: [address] [place], [place] [address] Performed By: #### 5 7021-8 ####[facility] LABCLIA [id number] [address] LABCLIA [id number] [place] [address] RBC (Bld) [#/Vol] 2.30 10*6/uL Low 4.20-6.00 [facility] Comment on above: Order Comment: Speci men Type: BLOOD SPECIMENOrdering Facility: [facility] Address: [address] [place] [address] Performed By: #### 5 7021-8 ####[facility] LABCLIA [id number] [address] LABCLIA [id number] [place] [address] RBC FRAGMENTS Few Abnormal None Seen [facility] Comment on above: Order Comment: Speci men Type: BLOOD SPECIMENOrdering Facility: [facility] Address: [address] [place], [place] [address] Performed By: #### 5 7021-8 ####[facility] LABCLIA [id number] [address] LABCLIA [id number] [place] [address] RED CELL MORPH Reviewed: see result s of individual morphologies Normal [facility] Comment on above: Order Comment: Speci men Type: BLOOD SPECIMENOrdering Facility: [facility] Address: [address] [place] [address] Performed By: #### 5 7021-8 ####[facility] LABCLIA [id number] [address] LABCLIA [id number] [place] [address] Variant lymphocytes/100 WBC (Bld) 0.0 % Normal [facility] Comment on above: Order Comment: Speci men Type: BLOOD SPECIMENOrdering Facility: [facility] Address: [address] [place] [address] Performed By: #### 5 7021-8 ####[facility] LABCLIA [id number] [address] LABCLIA [id number] [place] [id number] WBC (Bld) [#/Vol] 1.73 10*3/uL Low 3.70-11.00 [facility] Comment on above: Order Comment: Speci men Type: BLOOD SPECIMENOrdering Facility: [facility] Address: [address] [place] [address] Result Comment: Resu lts checked and verified. No clot detected Performed By: #### 5 7021-8 ####[facility] LABCLIA [id number] [address] LABCLIA [id number] [place] [id number] CNOVSPon 05-20-2022 CNOVSP Normal [facility] CNPNon 05-20-2022 CNPN Normal [facility] Comprehensive metabolic 2000 panelon 05-20-2022 Albumin [Mass/Vol] 4.0 g/dL Normal 3.9-4.9 [facility] Comment on above: Order Comment: Speci men Type: BLOOD SPECIMENOrdering Facility: [facility] Address: [address] [place] [address] Performed By: #### 2 532-0, 95375-7 ####[facility] LABCLIA [id number] [place] [address] ALP [Catalytic activity/Vol] 101 U/L Normal 38-113 [facility] Comment on above: Order Comment: Speci men Type: BLOOD SPECIMENOrdering Facility: [facility] Address: [address] [place] [address] Performed By: #### 2 532-0, 53816-2 ####[facility] LABCLIA [id number] [place] [address] ALT [Catalytic activity/Vol] 43 U/L Normal 10-54 [facility] Comment on above: Order Comment: Speci men Type: BLOOD SPECIMENOrdering Facility: [facility] Address: [address] [place] [address] Performed By: #### 2 532-0, 70279-2 ####[facility] LABCLIA [id number] [place] [address] Anion gap [Moles/Vol] 7 mmol/L Low 9-18 [facility] Comment on above: Order Comment: Speci men Type: BLOOD SPECIMENOrdering Facility: [facility] Address: [address] [place] [address] Performed By: #### 2 532-0, 03587-1 ####[facility] LABCLIA [id number] [place] [address] AST [Catalytic activity/Vol] 25 U/L Normal 14-40 [facility] Comment on above: Order Comment: Speci men Type: BLOOD SPECIMENOrdering Facility: [facility] Address: [address] [place] [address] Performed By: #### 2 532-0, 76797-7 ####[facility] LABCLIA [id number] [place] [address] Bilirubin [Mass/Vol] 0.7 mg/dL Normal 0.2-1.3 [facility] Comment on above: Order Comment: Speci men Type: BLOOD SPECIMENOrdering Facility: [facility] Address: [address] [place], [place] [address] Performed By: #### 2 532-0, 27258-9 ####[facility] LABCLIA [id number] [place] [address] Calcium [Mass/Vol] 8.3 mg/dL Low 8.5-10.2 [facility] Comment on above: Order Comment: Speci men Type: BLOOD SPECIMENOrdering Facility: [facility] Address: [address] [place] [address] Performed By: #### 2 532-0, 24897-5 ####[facility] LABCLIA [id number] [place] [address] Chloride [Moles/Vol] 105 mmol/L Normal 97-105 [facility] Comment on above: Order Comment: Speci men Type: BLOOD SPECIMENOrdering Facility: [facility] Address: [address] [place] [address] Performed By: #### 2 532-0, 17570-3 ####[facility] LABCLIA [id number] [place] [address] CO2 [Moles/Vol] 33 mmol/L High 22-30 [facility] Comment on above: Order Comment: Speci men Type: BLOOD SPECIMENOrdering Facility: [facility] Address: [address] [place], [place] [address] Performed By: #### 2 532-0, 30805-1 ####[facility] LABCLIA [id number] [place] [address] Creatinine [Mass/Vol] 1.69 mg/dL High 0.73-1.22 [facility] Comment on above: Order Comment: Speci men Type: BLOOD SPECIMENOrdering Facility: [facility] Address: [address] [place] [address] Performed By: #### 2 532-0, 66334-1 ####[facility] LABCLIA [id number] [place] [address] ESTIMATED GLOMERULAR FILTRATION RATE 40 mL/min/1.73m??? Low >=60 [facility] Comment on above: Order Comment: Davi avendaño Type: BLOOD SPECIMENOrdering Facility: [facility] Address: [address] [place] [address] Result Comment: Faye mated Glomerular Filtration Rate [...] actual GFR. Performed By: #### 2 532-0, 23373-2 ####[facility] LABIA [id number] [place] [address] Glucose [Mass/Vol] 128 mg/dL High 74-99 [facility] Comment on above: Order Comment: Davi avendaño Type: BLOOD SPECIMENOrdering Facility: [facility] Address: [address] [place] [address] Result Comment: The [place] [employer] (ADA) provides guidance for cutoff [...] Standards of Medical Care in Diabetes 2016, [place] [employer]. Diabetes Care. 2016.39(Suppl 1). Performed By: #### 2 532-0, 77899-0 ####[facility] LABIA [id number] [place] [address] Potassium [Moles/Vol] 4.2 mmol/L Normal 3.7-5.1 [facility] Comment on above: Order Comment: Speci men Type: BLOOD SPECIMENOrdering Facility: [facility] Address: [address] [place] [address] Performed By: #### 2 532-0, ####[facility] LABCLIA [id number] [place] [address] Protein [Mass/Vol] 6.2 g/dL Low 6.3-8.0 [facility] Comment on above: Order Comment: Speci men Type: BLOOD SPECIMENOrdering Facility: [facility] Address: [address] [place] [address] Performed By: #### 2 532-0, ####[facility] LABIA [id number] [place] [address] Sodium [Moles/Vol] 145 mmol/L High 136-144 [facility] Comment on above: Order Comment: Speci men Type: BLOOD SPECIMENOrdering Facility: [facility] Address: [address] [place] [address] Performed By: #### 2 532-0, ####[facility] LABIA [id number] [place] [address] Urea nitrogen [Mass/Vol] 28 mg/dL High 9-24 [facility] Comment on above: Order Comment: Speci men Type: BLOOD SPECIMENOrdering Facility: [facility] Address: [address] [place] [address] Performed By: #### 2 532-0, ####[facility] LABIA [id number] [place] [address] LDH SerPl-cCncon 05-20-2022 LDH [Catalytic activity/Vol] 223 U/L Normal 135-225 [facility] Comment on above: Order Comment: Speci men Type: BLOOD SPECIMENOrdering Facility: [facility] Address: [address] [place], [place] [address] Performed By: #### 2 532-0, 20152-2 ####[facility] LABCLIA [id number] [place] [address] CNPNon 05-14-2022 CNPN Normal [facility] PRBC LEUKOREDUCEDon 05-14-20 ABO and Rh group Nom (Bld) Cross Match Result Compatible Unit Blood Type A Neg Unit Number [id number] Status Information Transfused Product ID Red Blood Cells Product Code [id number] Cross Match Result Compatible Unit Blood Type A Neg Unit Number [id number] Status Information Transfused Product ID Red Blood Cells Product Code [id number] Normal [facility] Comment on above: Performed By: #### T NS, PRBC #### [facility] [address] [place] [address] Dr. Benito To CBC W Auto Differential pane l (Bld)on 05-13-2022 Anisocytosis Ql (Bld) Present Normal [facility] Comment on above: Order Comment: Speci men Type: BLOOD SPECIMENOrdering Facility: [facility] Address: [address] [place] [address] Performed By: #### 5 7021-8 ####[facility] LABCLIA [id number] [address] LABCLIA [id number] [place] [address] [place] Basophils (Bld) [#/Vol] 0.02 10*3/uL Normal <0.11 [facility] Comment on above: Order Comment: Speci men Type: BLOOD SPECIMENOrdering Facility: [facility] Address: [address] [place] [address] Performed By: #### 5 7021-8 ####[facility] LABCLIA [id number] [address] LABCLIA [id number] [facility] [place] [address] [place] Basophils/100 WBC (Bld) 0.9 % Normal [facility] Comment on above: Order Comment: Speci men Type: BLOOD SPECIMENOrdering Facility: [facility] Address: [address] [place] [address] Performed By: #### 5 7021-8 ####[facility] LABCLIA [id number] [address] LABCLIA [id number] [place] [address] [place] Differential cell count method Nom (Bld) Manual Normal [facility] Comment on above: Order Comment: Speci men Type: BLOOD SPECIMENOrdering Facility: [facility] Address: [address] [place] [address] Performed By: #### 5 7021-8 ####[facility] LABCLIA [id number] [address] LABCLIA [id number] [place] [address] [place] Eosinophils (Bld) [#/Vol] 0.00 10*3/uL Normal <0.46 [facility] Comment on above: Order Comment: Speci men Type: BLOOD SPECIMENOrdering Facility: [facility] Address: [address] [place] [address] Performed By: #### 5 7021-8 ####[facility] LABCLIA [id number] [address] LABCLIA [id number] [place] [address] [place] Eosinophils/100 WBC (Bld) 0.0 % Normal [facility] Comment on above: Order Comment: Speci men Type: BLOOD SPECIMENOrdering Facility: [facility] Address: [address] [place] [address] Performed By: #### 5 7021-8 ####[facility] LABCLIA [id number] [place] [id number] LABCLIA [id number] [place] [address] [place] Erythrocyte distribution width (RBC) [Ratio] 23.4 % High 11.5-15.0 [facility] Comment on above: Order Comment: Speci men Type: BLOOD SPECIMENOrdering Facility: [facility] Address: [address] [place] [address] Performed By: #### 5 7021-8 ####[facility] LABCLIA [id number] [address] LABCLIA [id number] [place] [address] [place] Hematocrit (Bld) [Volume fraction] 26.2 % Low 39.0-51.0 [facility] Comment on above: Order Comment: Speci men Type: BLOOD SPECIMENOrdering Facility: [facility] Address: [address] [place], [place] [address] Performed By: #### 5 7021-8 ####[facility] LABCLIA [id number] [address] LABCLIA [id number] [place] [address] [place] Hemoglobin (Bld) [Mass/Vol] 8.3 g/dL Low 13.0-17.0 [facility] Comment on above: Order Comment: Speci men Type: BLOOD SPECIMENOrdering Facility: [facility] Address: [address] [place], [place] [address] Performed By: #### 5 7021-8 ####[facility] LABCLIA [id number] [address] LABCLIA [id number] [place] [address] [place] Lymphocytes (Bld) [#/Vol] 0.86 10*3/uL Low 1.00-4.00 [facility] Comment on above: Order Comment: Speci men Type: BLOOD SPECIMENOrdering Facility: [facility] Address: [address] [place] [address] Performed By: #### 5 7021-8 ####[facility] LABCLIA [id number] [address] LABCLIA [id number] [place] [address] [place] Lymphocytes/100 WBC (Bld) 44.1 % Normal [facility] Comment on above: Order Comment: Speci men Type: BLOOD SPECIMENOrdering Facility: [facility] Address: [address] [place] [address] Performed By: #### 5 7021-8 ####[facility] LABCLIA [id number] [address] LABCLIA [id number] [place] [address] [place] MCH (RBC) [Entitic mass] 32.9 pg Normal 26.0-34.0 [facility] Comment on above: Order Comment: Speci men Type: BLOOD SPECIMENOrdering Facility: [facility] Address: [address] [place] [address] Performed By: #### 5 7021-8 ####[facility] LABCLIA [id number] [address] LABCLIA [id number] [place] [address] [place] MCHC (RBC) [Mass/Vol] 31.7 g/dL Normal 30.5-36.0 [facility] Comment on above: Order Comment: Speci men Type: BLOOD SPECIMENOrdering Facility: [facility] Address: [address] [place] [address] Performed By: #### 5 7021-8 ####[facility] LABCLIA [id number] [address] LABCLIA [id number] [place] [address] [place] MCV (RBC) [Entitic vol] 104.0 fL High 80.0-100.0 [facility] Comment on above: Order Comment: Speci men Type: BLOOD SPECIMENOrdering Facility: [facility] Address: [address] [place] [address] Performed By: #### 5 7021-8 ####[facility] LABCLIA [id number] [address] LABCLIA [id number] [place] [address] [place] Metamyelocytes/100 WBC (Bld) 0.4 % Normal [facility] Comment on above: Order Comment: Speci men Type: BLOOD SPECIMENOrdering Facility: [facility] Address: [address] [place], [place] [address] Performed By: #### 5 7021-8 ####[facility] LABCLIA [id number] [address] LABCLIA [id number] [place] [address] [place] Monocytes (Bld) [#/Vol] 0.43 10*3/uL Normal <0.87 [facility] Comment on above: Order Comment: Speci men Type: BLOOD SPECIMENOrdering Facility: [facility] Address: [address] [place] [address] Performed By: #### 5 7021-8 ####[facility] LABCLIA [id number] [address] LABCLIA [id number] [place] [address] [place] Monocytes/100 WBC (Bld) 21.8 % Normal [facility] Comment on above: Order Comment: Speci men Type: BLOOD SPECIMENOrdering Facility: [facility] Address: [address] [place] [address] Performed By: #### 5 7021-8 ####[facility] LABCLIA [id number] [address] LABCLIA [id number] [place] [address] [place] MYELO% 0.9 % Normal [facility] Comment on above: Order Comment: Speci men Type: BLOOD SPECIMENOrdering Facility: [facility] Address: [address] [place] [address] Performed By: #### 5 7021-8 ####[facility] LABCLIA [id number] [address] LABCLIA [id number] [place] [address] [place] Neutrophils (Bld) [#/Vol] 0.63 10*3/uL Low 1.45-7.50 [facility] Comment on above: Order Comment: Speci men Type: BLOOD SPECIMENOrdering Facility: [facility] Address: [address] [place] [address] Performed By: #### 5 7021-8 ####[facility] LABCLIA [id number] [address] LABCLIA [id number] [place] [address] [place] Neutrophils/100 WBC (Bld) 31.9 % Normal [facility] Comment on above: Order Comment: Speci men Type: BLOOD SPECIMENOrdering Facility: [facility] Address: [address] [place] [address] Performed By: #### 5 7021-8 ####[facility] LABCLIA [id number] [address] LABCLIA [id number] [place] [address] [place] Nucleated RBC (Bld) [#/Vol] 10*3/uL Normal <0.01 [facility] Comment on above: Order Comment: Speci men Type: BLOOD SPECIMENOrdering Facility: [facility] Address: [address] [place] [address] Result Comment: This result was previously suppressed from the chart. Performed By: #### 5 7021-8 ####[facility] LABCLIA [id number] [address] LABCLIA [id number] [place] [address] [place] Nucleated RBC/100 WBC (Bld) [Ratio] 0.0 /100 WBC Normal [facility] Comment on above: Order Comment: Speci men Type: BLOOD SPECIMENOrdering Facility: [facility] Address: [address] [place] [address] Performed By: #### 5 7021-8 ####[facility] LABCLIA [id number] [address] LABCLIA [id number] [place] [address] [place] Ovalocytes LM Ql (Bld) Few Normal [facility] Comment on above: Order Comment: Speci men Type: BLOOD SPECIMENOrdering Facility: [facility] Address: [address] [place] [address] Performed By: #### 5 7021-8 ####[facility] LABCLIA [id number] [address] LABCLIA [id number] [place] [address] [place] Platelet mean volume (Bld) [Entitic vol] 13.0 fL High 9.0-12.7 [facility] Comment on above: Order Comment: Speci men Type: BLOOD SPECIMENOrdering Facility: [facility] Address: [address] [place], [place] [address] Performed By: #### 5 7021-8 ####[facility] LABCLIA [id number] [address] LABCLIA [id number] [place] [address] [place] Platelets (Bld) [#/Vol] 75 10*3/uL Low 150-400 [facility] Comment on above: Order Comment: Speci men Type: BLOOD SPECIMENOrdering Facility: [facility] Address: [address] [place], [place] [address] Result Comment: Resu lts checked and verified. No clot detected. Sample checked for clot Performed By: #### 5 7021-8 ####[facility] LABCLIA [id number] [address] LABCLIA [id number] [place] [address] [place] Platelets Estimate (Bld) [#/Vol] Decreased Normal [facility] Comment on above: Order Comment: Speci men Type: BLOOD SPECIMENOrdering Facility: [facility] Address: [address] [place], [place] [address] Performed By: #### 5 7021-8 ####[facility] LABCLIA [id number] [address] LABCLIA [id number] [place] [address] [place] Polychromasia LM Ql (Bld) Slight Normal [facility] Comment on above: Order Comment: Speci men Type: BLOOD SPECIMENOrdering Facility: [facility] Address: [address] [place] [address] Performed By: #### 5 7021-8 ####[facility] LABCLIA [id number] [place] [id number] LABCLIA [id number] [place] [address] [place] RBC (Bld) [#/Vol] 2.52 10*6/uL Low 4.20-6.00 [facility] Comment on above: Order Comment: Speci men Type: BLOOD SPECIMENOrdering Facility: [facility] Address: [address] [place] [address] Performed By: #### 5 7021-8 ####[facility] LABCLIA [id number] [address] LABCLIA [id number] [place] [address] [place] RED CELL MORPH Reviewed: see result s of individual morphologies Normal [facility] Comment on above: Order Comment: Speci men Type: BLOOD SPECIMENOrdering Facility: [facility] Address: [address] [place] [address] Performed By: #### 5 7021-8 ####[facility] LABCLIA [id number] [address] LABCLIA [id number] [place] [address] [place] Variant lymphocytes/100 WBC (Bld) 0.0 % Normal [facility] Comment on above: Order Comment: Speci men Type: BLOOD SPECIMENOrdering Facility: [facility] Address: [address] [place] [address] Performed By: #### 5 7021-8 ####[facility] LABCLIA [id number] [address] LABCLIA [id number] [place] [address] [place] WBC (Bld) [#/Vol] 1.96 10*3/uL Low 3.70-11.00 [facility] Comment on above: Order Comment: Speci men Type: BLOOD SPECIMENOrdering Facility: [facility] Address: [address] [place] [address] Performed By: #### 5 7021-8 ####[facility] LABCLIA [id number] [place] [id number] LABCLIA [id number] [place] [address] [place] WBC Left Shift Ql (Bld) Present Normal [facility] Comment on above: Order Comment: Speci men Type: BLOOD SPECIMENOrdering Facility: [facility] Address: [address] [place] [address] Performed By: #### 5 7021-8 ####[facility] LABCLIA [id number] [address] LABCLIA [id number] [place] [address] [place] Comprehensive metabolic 2000 panelon 05-13-2022 Albumin [Mass/Vol] 3.9 g/dL Normal 3.9-4.9 [facility] Comment on above: Order Comment: Speci men Type: BLOOD SPECIMENOrdering Facility: [facility] Address: [address] [place] [address] Performed By: #### 2 532-0, 95676-5 ####[facility] LABCLIA [id number] [place] [address] ALP [Catalytic activity/Vol] 93 U/L Normal 38-113 [facility] Comment on above: Order Comment: Speci men Type: BLOOD SPECIMENOrdering Facility: [facility] Address: [address] [place] [address] Performed By: #### 2 532-0, 51494-9 ####[facility] LABCLIA [id number] [place] [address] ALT [Catalytic activity/Vol] 29 U/L Normal 10-54 [facility] Comment on above: Order Comment: Speci men Type: BLOOD SPECIMENOrdering Facility: [facility] Address: [address] [place] [address] Performed By: #### 2 532-0, ####[facility] LABCLIA [id number] [place] [address] Anion gap [Moles/Vol] 11 mmol/L Normal 9-18 [facility] Comment on above: Order Comment: Speci men Type: BLOOD SPECIMENOrdering Facility: [facility] Address: [address] [place] [address] Performed By: #### 2 532-0, ####[facility] LABCLIA [id number] [place] [address] AST [Catalytic activity/Vol] 14 U/L Normal 14-40 [facility] Comment on above: Order Comment: Speci men Type: BLOOD SPECIMENOrdering Facility: [facility] Address: [address] [place] [address] Performed By: #### 2 532-0, ####[facility] LABCLIA [id number] [place] [address] Bilirubin [Mass/Vol] 0.8 mg/dL Normal 0.2-1.3 [facility] Comment on above: Order Comment: Speci men Type: BLOOD SPECIMENOrdering Facility: [facility] Address: [address] [place], [place] [address] Performed By: #### 2 532-0, 69970-1 ####[facility] LABCLIA [id number] [place] [address] Calcium [Mass/Vol] 8.8 mg/dL Normal 8.5-10.2 [facility] Comment on above: Order Comment: Speci men Type: BLOOD SPECIMENOrdering Facility: [facility] Address: [address] [place], [place] [address] Performed By: #### 2 532-0, 67887-2 ####[facility] LABCLIA [id number] [place] [address] Chloride [Moles/Vol] 102 mmol/L Normal 97-105 [facility] Comment on above: Order Comment: Speci men Type: BLOOD SPECIMENOrdering Facility: [facility] Address: [address] [place] [address] Performed By: #### 2 532-0, 04877-9 ####[facility] LABCLIA [id number] [place] [address] CO2 [Moles/Vol] 28 mmol/L Normal 22-30 [facility] Comment on above: Order Comment: Speci men Type: BLOOD SPECIMENOrdering Facility: [facility] Address: [address] [place] [address] Performed By: #### 2 532-0, 14602-4 ####[facility] LABCLIA [id number] [place] [address] Creatinine [Mass/Vol] 1.63 mg/dL High 0.73-1.22 [facility] Comment on above: Order Comment: Speci men Type: BLOOD SPECIMENOrdering Facility: [facility] Address: [address] [place] [address] Performed By: #### 2 532-0, 20691-4 ####[facility] LABIA [id number] [place] [address] ESTIMATED GLOMERULAR FILTRATION RATE 42 mL/min/1.73m??? Low >=60 [facility] Comment on above: Order Comment: Speci men Type: BLOOD SPECIMENOrdering Facility: [facility] Address: [address] [place] [address] Result Comment: Faye mated Glomerular Filtration Rate [...] actual GFR. Performed By: #### 2 532-0, 28661-7 ####[facility] LABCLIA [id number] [place] [address] Glucose [Mass/Vol] 191 mg/dL High 74-99 [facility] Comment on above: Order Comment: Speci men Type: BLOOD SPECIMENOrdering Facility: [facility] Address: [address] [place] [address] Result Comment: The [place] [employer] (ADA) provides guidance for cutoff [...] Standards of Medical Care in Diabetes 2016, [place] [employer]. Diabetes Care. 2016.39(Suppl 1). Performed By: #### 2 532-0, 74215-8 ####[facility] LABCLIA [id number] [place] [address] Potassium [Moles/Vol] 3.8 mmol/L Normal 3.7-5.1 [facility] Comment on above: Order Comment: Speci men Type: BLOOD SPECIMENOrdering Facility: [facility] Address: [address] [place] [address] Performed By: #### 2 532-0, 81874-4 ####[facility] LABCLIA [id number] [place] [address] Protein [Mass/Vol] 6.0 g/dL Low 6.3-8.0 [facility] Comment on above: Order Comment: Speci men Type: BLOOD SPECIMENOrdering Facility: [facility] Address: [address] [place] [address] Performed By: #### 2 532-0, 32643-5 ####[facility] LABCLIA [id number] [place] [address] Sodium [Moles/Vol] 141 mmol/L Normal 136-144 [facility] Comment on above: Order Comment: Speci men Type: BLOOD SPECIMENOrdering Facility: [facility] Address: [address] [place] [address] Performed By: #### 2 532-0, 13114-3 ####[facility] LABCLIA [id number] [place] [address] Urea nitrogen [Mass/Vol] 22 mg/dL Normal 9-24 [facility] Comment on above: Order Comment: Speci men Type: BLOOD SPECIMENOrdering Facility: [facility] Address: [address] [place] [address] Performed By: #### 2 532-0, 93469-6 ####[facility] LABIA [id number] [place] [address] [facility]-2022 LDH [Catalytic activity/Vol] 218 U/L Normal 135-225 [facility] Comment on above: Order Comment: Speci men Type: BLOOD SPECIMENOrdering Facility: [facility] Address: [address] [place] [address] Performed By: #### 2 532-0, 76867-6 ####[facility] LABIA [id number] [place] [address] PRBC LEUKOREDUCEDon 05-08-20 ABO and Rh group Nom (Bld) Cross Match Result Compatible Unit Blood Type A Pos Unit Number [id number] Status Information Transfused Product ID Red Blood Cells Product Code [id number] Cross Match Result Compatible Unit Blood Type A Pos Unit Number [id number] Status Information Transfused Product ID Red Blood Cells Product Code [id number] Normal [facility] Comment on above: Performed By: #### H H #### [facility] [address] [place] [address] Dr. Benito To HEMOGLOBIN AND HEMATOCRITon 05-07-2022 Hematocrit (Bld) [Volume fraction] 24.6 % Critically low 42.0-54.0 [facility] Comment on above: Performed By: #### T NS, PRBC #### [facility] [address] [place] [address] Dr. Benito To Hemoglobin (Bld) [Mass/Vol] 7.6 g/dL Critically low 14.0-18.0 [facility] Comment on above: Performed By: #### T NS, PRBC #### [facility] [address] [place] [address] Dr. Benito To TYPE AND SCREENon 05-07-2022 TYPE AND SCREEN Negative Normal [facility] Comment on above: Performed By: #### T NS, PRBC #### [facility] [address] [place] [address] Dr. Benito To CBC W Auto Differential pane l (Bld)on 05-06-2022 Anisocytosis Ql (Bld) Present Normal [facility] Comment on above: Order Comment: Speci men Type: BLOOD SPECIMENOrdering Facility: [facility] Address: [address] [place] [address] Performed By: #### 5 7021-8 ####[facility] LABCLIA [id number] [address] LABCLIA [id number] [place] [address] [place] Basophils/100 WBC (Bld) 5.0 % Normal [facility] Comment on above: Order Comment: Speci men Type: BLOOD SPECIMENOrdering Facility: [facility] Address: [address] [place] [address] Performed By: #### 5 7021-8 ####[facility] LABCLIA [id number] [address] LABCLIA [id number] [place] [address] [place] Eosinophils (Bld) [#/Vol] 0.02 10*3/uL Normal <0.46 [facility] Comment on above: Order Comment: Speci men Type: BLOOD SPECIMENOrdering Facility: [facility] Address: [address] [place] [address] Performed By: #### 5 7021-8 ####[facility] LABCLIA [id number] [address] LABCLIA [id number] [place] [address] [place] Eosinophils/100 WBC (Bld) 1.0 % Normal [facility] Comment on above: Order Comment: Speci men Type: BLOOD SPECIMENOrdering Facility: [facility] Address: [address] [place] [address] Performed By: #### 5 7021-8 ####[facility] LABCLIA [id number] [address] LABCLIA [id number] [place] [address] [place] Erythrocyte distribution width (RBC) [Ratio] 24.7 % High 11.5-15.0 [facility] Comment on above: Order Comment: Speci men Type: BLOOD SPECIMENOrdering Facility: [facility] Address: [address] [place] [address] Performed By: #### 5 7021-8 ####[facility] LABCLIA [id number] [address] LABCLIA [id number] [place] [address] [place] Giant platelets LM Ql (Bld) Occasional Normal [facility] Comment on above: Order Comment: Speci men Type: BLOOD SPECIMENOrdering Facility: [facility] Address: [address] [place] [address] Performed By: #### 5 7021-8 ####[facility] LABCLIA [id number] [address] LABCLIA [id number] [place] [address] [place] Hematocrit (Bld) [Volume fraction] 23.3 % Low 39.0-51.0 [facility] Comment on above: Order Comment: Speci men Type: BLOOD SPECIMENOrdering Facility: [facility] Address: [address] [place] [address] Performed By: #### 5 7021-8 ####[facility] LABCLIA [id number] [address] LABCLIA [id number] [place] [address] [place] Hemoglobin (Bld) [Mass/Vol] 7.4 g/dL Low 13.0-17.0 [facility] Comment on above: Order Comment: Speci men Type: BLOOD SPECIMENOrdering Facility: [facility] Address: [address] [place] [address] Performed By: #### 5 7021-8 ####[facility] LABCLIA [id number] [address] LABCLIA [id number] [place] [address] [place] Lymphocytes (Bld) [#/Vol] 1.05 10*3/uL Normal 1.00-4.00 [facility] Comment on above: Order Comment: Speci men Type: BLOOD SPECIMENOrdering Facility: [facility] Address: [address] [place] [address] Performed By: #### 5 7021-8 ####[facility] LABCLIA [id number] [address] LABCLIA [id number] [place] [address] [place] Lymphocytes/100 WBC (Bld) 53.0 % Normal [facility] Comment on above: Order Comment: Speci men Type: BLOOD SPECIMENOrdering Facility: [facility] Address: [address] [place] [address] Performed By: #### 5 7021-8 ####[facility] LABCLIA [id number] [address] LABCLIA [id number] [place] [address] [place] MCH (RBC) [Entitic mass] 33.2 pg Normal 26.0-34.0 [facility] Comment on above: Order Comment: Speci men Type: BLOOD SPECIMENOrdering Facility: [facility] Address: [address] [place] [address] Performed By: #### 5 7021-8 ####[facility] LABCLIA [id number] [address] LABCLIA [id number] [place] [address] [place] MCHC (RBC) [Mass/Vol] 31.8 g/dL Normal 30.5-36.0 [facility] Comment on above: Order Comment: Speci men Type: BLOOD SPECIMENOrdering Facility: [facility] Address: [address] [place] [address] Performed By: #### 5 7021-8 ####[facility] LABCLIA [id number] [address] LABCLIA [id number] [place] [address] [place] MCV (RBC) [Entitic vol] 104.5 fL High 80.0-100.0 [facility] Comment on above: Order Comment: Speci men Type: BLOOD SPECIMENOrdering Facility: [facility] Address: [address] [place] [address] Performed By: #### 5 7021-8 ####[facility] LABCLIA [id number] [address] LABCLIA [id number] [place] [address] [place] MYELO% 1.0 % Normal [facility] Comment on above: Order Comment: Speci men Type: BLOOD SPECIMENOrdering Facility: [facility] Address: [address] [place] [address] Performed By: #### 5 7021-8 ####[facility] LABCLIA [id number] [address] LABCLIA [id number] [place] [address] [place] Neutrophils (Bld) [#/Vol] 0.40 10*3/uL Low 1.45-7.50 [facility] Comment on above: Order Comment: Speci men Type: BLOOD SPECIMENOrdering Facility: [facility] Address: [address] [place] [address] Performed By: #### 5 7021-8 ####[facility] LABCLIA [id number] [address] LABCLIA [id number] [place] [address] [place] Neutrophils/100 WBC (Bld) 20.0 % Normal [facility] Comment on above: Order Comment: Speci men Type: BLOOD SPECIMENOrdering Facility: [facility] Address: [address] [place] [address] Performed By: #### 5 7021-8 ####[facility] LABCLIA [id number] [address] [facility] LABCLIA [id number] [place] [address] [place] Nucleated RBC/100 WBC (Bld) [Ratio] 0.0 /100 WBC Normal [facility] Comment on above: Order Comment: Speci men Type: BLOOD SPECIMENOrdering Facility: [facility] Address: [address] [place], [place] [address] Performed By: #### 5 7021-8 ####[facility] LABCLIA [id number] [address] LABCLIA [id number] [place] [address] [place] Ovalocytes LM Ql (Bld) Few Normal [facility] Comment on above: Order Comment: Speci men Type: BLOOD SPECIMENOrdering Facility: [facility] Address: [address] [place], [place] [address] Performed By: #### 5 7021-8 ####[facility] LABCLIA [id number] [address] LABCLIA [id number] [place] [address] [place] PLATELET ESTIMATE Decreased Normal [facility] Comment on above: Order Comment: Speci men Type: BLOOD SPECIMENOrdering Facility: [facility] Address: [address] [place] [address] Performed By: #### 5 7021-8 ####[facility] LABCLIA [id number] [address] LABCLIA [id number] [place] [address] [place] Platelet mean volume (Bld) [Entitic vol] Normal [facility] Comment on above: Order Comment: Speci men Type: BLOOD SPECIMENOrdering Facility: [facility] Address: [address] [place] [address] Result Comment: Unab le to Report. Performed By: #### 5 7021-8 ####[facility] [facility] LABCLIA [id number] [address] LABCLIA [id number] [place] [address] [place] Platelets (Bld) [#/Vol] 65 10*3/uL Low 150-400 [facility] Comment on above: Order Comment: Speci men Type: BLOOD SPECIMENOrdering Facility: [facility] Address: [address] [place] [address] Result Comment: Samp le checked for clot Performed By: #### 5 7021-8 ####[facility] LABCLIA [id number] [address] LABCLIA [id number] [place] [address] [place] RBC (Bld) [#/Vol] 2.23 10*6/uL Low 4.20-6.00 [facility] Comment on above: Order Comment: Speci men Type: BLOOD SPECIMENOrdering Facility: [facility] Address: [address] [place] [address] Performed By: #### 5 7021-8 ####[facility] LABCLIA [id number] [address] LABCLIA [id number] [place] [address] [place] RBC FRAGMENTS Few Abnormal None Seen [facility] Comment on above: Order Comment: Speci men Type: BLOOD SPECIMENOrdering Facility: [facility] Address: [address] [place] [address] Performed By: #### 5 7021-8 ####[facility] LABCLIA [id number] [address] LABCLIA [id number] [place] [address] [place] RED CELL MORPH Reviewed: see result s of individual morphologies Normal [facility] Comment on above: Order Comment: Speci men Type: BLOOD SPECIMENOrdering Facility: [facility] Address: [address] [place] [address] Performed By: #### 5 7021-8 ####[facility] LABCLIA [id number] [address] LABCLIA [id number] [place] [address] [place] Variant lymphocytes/100 WBC (Bld) 0.0 % Normal [facility] Comment on above: Order Comment: Speci men Type: BLOOD SPECIMENOrdering Facility: [facility] Address: [address] [place] [address] Performed By: #### 5 7021-8 ####[facility] LABCLIA [id number] [address] LABCLIA [id number] [place] [address] [place] WAM - ABS BASO 0.10 k/uL Normal <0.11 [facility] Comment on above: Order Comment: Speci men Type: BLOOD SPECIMENOrdering Facility: [facility] Address: [address] [place], [place] [address] Performed By: #### 5 7021-8 ####[facility] LABCLIA [id number] [address] LABCLIA [id number] [place] [address] [place] WAM - ABS MONO 0.40 k/uL Normal <0.87 [facility] Comment on above: Order Comment: Speci men Type: BLOOD SPECIMENOrdering Facility: [facility] Address: [address] [place], [place] [address] Performed By: #### 5 7021-8 ####[facility] LABCLIA [id number] [address] LABCLIA [id number] [place] [address] [place] WAM - MONO% 20.0 % Normal [facility] Comment on above: Order Comment: Speci men Type: BLOOD SPECIMENOrdering Facility: [facility] Address: [address] [place] [address] Performed By: #### 5 7021-8 ####[facility] LABCLIA [id number] [address] LABCLIA [id number] [place] [address] [place] WAM ABSOLUTE NRBC <0.01 Normal <0.01 [facility] Comment on above: Order Comment: Speci men Type: BLOOD SPECIMENOrdering Facility: [facility] Address: [address] [place] [address] Result Comment: This result was previously suppressed from the chart. Performed By: #### 5 7021-8 ####[facility] LABCLIA [id number] [address] LABCLIA [id number] [place] [address] [place] WBC (Bld) [#/Vol] 1.98 10*3/uL Low 3.70-11.00 [facility] Comment on above: Order Comment: Speci men Type: BLOOD SPECIMENOrdering Facility: [facility] Address: [address] [place] [address] Performed By: #### 5 7021-8 ####[facility] LABCLIA [id number] [address] LABCLIA [id number] [place] [address] [place] WBC Left Shift Ql (Bld) Present Normal [facility] Comment on above: Order Comment: Speci men Type: BLOOD SPECIMENOrdering Facility: [facility] Address: [address] [place] [address] Performed By: #### 5 7021-8 ####[facility] LABCLIA [id number] [place], [place] [address]MFONBVLCAAC[facility] LABCLIA [id number] [place] [address] [place] CNOVSPon 05-06-2022 CNOVSP Normal [facility] CNPNon 05-06-2022 CNPN Normal [facility] Comprehensive metabolic 2000 panelon 05-06-2022 Albumin [Mass/Vol] 3.9 g/dL Normal 3.9-4.9 [facility] Comment on above: Order Comment: Speci men Type: BLOOD SPECIMENOrdering Facility: [facility] Address: [address] [place], [place] [address] Performed By: #### 2 4323-8, 2531-0 ####[facility] LABCLIA [id number] [place] [address] ALP [Catalytic activity/Vol] 87 U/L Normal 38-113 [facility] Comment on above: Order Comment: Speci men Type: BLOOD SPECIMENOrdering Facility: [facility] Address: [address] [place], [place] [address] Performed By: #### 2 4323-8, 253-0 ####[facility] LABCLIA [id number] [place] [address] ALT [Catalytic activity/Vol] 25 U/L Normal 10-54 [facility] Comment on above: Order Comment: Speci men Type: BLOOD SPECIMENOrdering Facility: [facility] Address: [address] [place], [place] [address] Performed By: #### 2 4323-8, 2532-0 ####[facility] LABCLIA [id number] [place] [address] Anion gap [Moles/Vol] 12 mmol/L Normal 9-18 [facility] Comment on above: Order Comment: Speci men Type: BLOOD SPECIMENOrdering Facility: [facility] Address: [address] [place] [address] Performed By: #### 2 4323-8, 2532-0 ####[facility] LABCLIA [id number] [place] [address] AST [Catalytic activity/Vol] 13 U/L Low 14-40 [facility] Comment on above: Order Comment: Speci men Type: BLOOD SPECIMENOrdering Facility: [facility] Address: [address] [place] [address] Performed By: #### 2 4323-8, 253-0 ####[facility] LABIA [id number] [place] [address] Bilirubin [Mass/Vol] 0.7 mg/dL Normal 0.2-1.3 [facility] Comment on above: Order Comment: Speci men Type: BLOOD SPECIMENOrdering Facility: [facility] Address: [address] [place] [address] Performed By: #### 2 4323-8, 2531-0 ####[facility] LABCLIA [id number] [place] [address] Calcium [Mass/Vol] 8.5 mg/dL Normal 8.5-10.2 [facility] Comment on above: Order Comment: Speci men Type: BLOOD SPECIMENOrdering Facility: [facility] Address: [address] [place] [address] Performed By: #### 2 4323-8, 2532-0 ####[facility] LABCLIA [id number] [place] [address] Chloride [Moles/Vol] 102 mmol/L Normal 97-105 [facility] Comment on above: Order Comment: Speci men Type: BLOOD SPECIMENOrdering Facility: [facility] Address: [address] [place] [address] Performed By: #### 2 4323-8, 2531-0 ####[facility] LABCLIA [id number] [place] [address] CO2 [Moles/Vol] 27 mmol/L Normal 22-30 [facility] Comment on above: Order Comment: Speci men Type: BLOOD SPECIMENOrdering Facility: [facility] Address: [address] [place] [address] Performed By: #### 2 4323-8, 2531-0 ####[facility] LABIA [id number] [place] [address] Creatinine [Mass/Vol] 1.97 mg/dL High 0.73-1.22 [facility] Comment on above: Order Comment: Speci men Type: BLOOD SPECIMENOrdering Facility: [facility] Address: [address] [place] [address] Performed By: #### 2 4323-8, 2531-0 ####[facility] LABIA [id number] [place] [address] ESTIMATED GLOMERULAR FILTRATION RATE 33 mL/min/1.73m??? Low >=60 [facility] Comment on above: Order Comment: Speci men Type: BLOOD SPECIMENOrdering Facility: [facility] Address: [address] [place] [address] Result Comment: Faye mated Glomerular Filtration Rate [...] GFR. Performed By: #### 2 4323-8, 253-0 ####[facility] LABCLIA [id number] [place] [address] Glucose [Mass/Vol] 132 mg/dL High 74-99 [facility] Comment on above: Order Comment: Speci men Type: BLOOD SPECIMENOrdering Facility: [facility] Address: [address] [place] [address] Result Comment: The [place] [employer] (ADA) provides guidance for cutoff [...] Standards of Medical Care in Diabetes 2016, [place] [employer]. Diabetes Care. 2016.39(Suppl 1). Performed By: #### 2 4323-8, 2531-0 ####[facility] LABCLIA [id number] [place] [address] Potassium [Moles/Vol] 3.9 mmol/L Normal 3.7-5.1 [facility] Comment on above: Order Comment: Speci men Type: BLOOD SPECIMENOrdering Facility: [facility] Address: [address] [place] [address] Performed By: #### 2 4323-8, 2531-0 ####[facility] LABCLIA [id number] [place] [address] Protein [Mass/Vol] 6.1 g/dL Low 6.3-8.0 [facility] Comment on above: Order Comment: Speci men Type: BLOOD SPECIMENOrdering Facility: [facility] Address: [address] [place] [address] Performed By: #### 2 4323-8, 2531-0 ####[facility] LABCLIA [id number] [place] [address] Sodium [Moles/Vol] 141 mmol/L Normal 136-144 [facility] Comment on above: Order Comment: Speci men Type: BLOOD SPECIMENOrdering Facility: [facility] Address: [address] [place] [address] Performed By: #### 2 4323-8, 2532-0 ####[facility] LABCLIA [id number] [place] [address] Urea nitrogen [Mass/Vol] 27 mg/dL High 9-24 [facility] Comment on above: Order Comment: Speci men Type: BLOOD SPECIMENOrdering Facility: [facility] Address: [address] [place] [address] Performed By: #### 2 4323-8, 2532-0 ####[facility] LABCLIA [id number] [place] [id number] LDH SerPl-cCncon 05-06-2022 LDH [Catalytic activity/Vol] 222 U/L Normal 135-225 [facility] Comment on above: Order Comment: Speci men Type: BLOOD SPECIMENOrdering Facility: [facility] Address: [address] [place] [address] Performed By: #### 2 4323-8, 2532-0 ####[facility] LABCLIA [id number] [place] [address] CBC W Auto Differential pane l (Bld)on 04-29-2022 Anisocytosis Ql (Bld) Present Normal [facility] Comment on above: Order Comment: Speci men Type: BLOOD SPECIMENOrdering Facility: [facility] Address: [address] [place] [address] Performed By: #### 5 7021-8 ####[facility] LABCLIA [id number] [place], [place] [address]WHIYEPDCUAC[facility] LABCLIA [id number] [facility] [id number] [place], [place] [id number] [place] Basophils/100 WBC (Bld) 0.0 % Normal [facility] Comment on above: Order Comment: Speci men Type: BLOOD SPECIMENOrdering Facility: [facility] Address: [address] [place] [address] Performed By: #### 5 7021-8 ####[facility] LABCLIA [id number] [address] LABCLIA [id number] [place] [address] [place] Dacrocytes LM Ql (Bld) Few Normal [facility] Comment on above: Order Comment: Speci men Type: BLOOD SPECIMENOrdering Facility: [facility] Address: [address] [place] [address] Performed By: #### 5 7021-8 ####[facility] LABCLIA [id number] [address] LABCLIA [id number] [place] [address] [place] Differential cell count method Nom (Bld) Manual Normal [facility] Comment on above: Order Comment: Speci men Type: BLOOD SPECIMENOrdering Facility: [facility] Address: [address] [place] [address] Performed By: #### 5 7021-8 ####[facility] LABCLIA [id number] [address] LABCLIA [id number] [place] [address] [place] Eosinophils (Bld) [#/Vol] 0.02 10*3/uL Normal <0.46 [facility] Comment on above: Order Comment: Speci men Type: BLOOD SPECIMENOrdering Facility: [facility] Address: [address] [place] [address] Performed By: #### 5 7021-8 ####[facility] LABCLIA [id number] [address] LABCLIA [id number] [place] [address] [place] Eosinophils/100 WBC (Bld) 1.0 % Normal [facility] Comment on above: Order Comment: Speci men Type: BLOOD SPECIMENOrdering Facility: [facility] Address: [address] [place] [address] Performed By: #### 5 7021-8 ####[facility] LABCLIA [id number] [address] LABCLIA [id number] [place] [address] [place] Erythrocyte distribution width (RBC) [Ratio] 24.4 % High 11.5-15.0 [facility] Comment on above: Order Comment: Speci men Type: BLOOD SPECIMENOrdering Facility: [facility] Address: [address] [place] [address] Performed By: #### 5 7021-8 ####[facility] LABCLIA [id number] [address] LABCLIA [id number] [place] [address] [place] Hematocrit (Bld) [Volume fraction] 26.7 % Low 39.0-51.0 [facility] Comment on above: Order Comment: Speci men Type: BLOOD SPECIMENOrdering Facility: [facility] Address: [address] [place], [place] [address] Performed By: #### 5 7021-8 ####[facility] LABCLIA [id number] [address] LABCLIA [id number] [place] [address] [place] Hemoglobin (Bld) [Mass/Vol] 8.4 g/dL Low 13.0-17.0 [facility] Comment on above: Order Comment: Speci men Type: BLOOD SPECIMENOrdering Facility: [facility] Address: [address] [place] [address] Performed By: #### 5 7021-8 ####[facility] LABCLIA [id number] [address] LABCLIA [id number] [place] [address] [place] Lymphocytes (Bld) [#/Vol] 0.79 10*3/uL Low 1.00-4.00 [facility] Comment on above: Order Comment: Speci men Type: BLOOD SPECIMENOrdering Facility: [facility] Address: [address] [place] [address] Performed By: #### 5 7021-8 ####[facility] LABCLIA [id number] [address] LABCLIA [id number] [place] [address] [place] Lymphocytes/100 WBC (Bld) 43.0 % Normal [facility] Comment on above: Order Comment: Speci men Type: BLOOD SPECIMENOrdering Facility: [facility] Address: [address] [place] [address] Performed By: #### 5 7021-8 ####[facility] LABCLIA [id number] [address] LABCLIA [id number] [place] [address] [place] MCH (RBC) [Entitic mass] 32.7 pg Normal 26.0-34.0 [facility] Comment on above: Order Comment: Speci men Type: BLOOD SPECIMENOrdering Facility: [facility] Address: [address] [place] [address] Performed By: #### 5 7021-8 ####[facility] LABCLIA [id number] [address] LABCLIA [id number] [place] [address] [place] MCHC (RBC) [Mass/Vol] 31.5 g/dL Normal 30.5-36.0 [facility] Comment on above: Order Comment: Speci men Type: BLOOD SPECIMENOrdering Facility: [facility] Address: [address] [place], [place] [address] Performed By: #### 5 7021-8 ####[facility] LABCLIA [id number] [address] LABCLIA [id number] [place] [address] [place] MCV (RBC) [Entitic vol] 103.9 fL High 80.0-100.0 [facility] Comment on above: Order Comment: Speci men Type: BLOOD SPECIMENOrdering Facility: [facility] Address: [address] [place] [address] Performed By: #### 5 7021-8 ####[facility] LABCLIA [id number] [address] LABCLIA [id number] [place] [address] [place] MYELO% 2.0 % Normal [facility] Comment on above: Order Comment: Speci men Type: BLOOD SPECIMENOrdering Facility: [facility] Address: [address] [place] [address] Performed By: #### 5 7021-8 ####[facility] LABCLIA [id number] [address] LABCLIA [id number] [place] [address] [place] Neutrophils (Bld) [#/Vol] 0.66 10*3/uL Low 1.45-7.50 [facility] Comment on above: Order Comment: Speci men Type: BLOOD SPECIMENOrdering Facility: [facility] Address: [address] [place] [address] Performed By: #### 5 7021-8 ####[facility] LABCLIA [id number] [address] LABCLIA [id number] [place] [address] [place] Neutrophils/100 WBC (Bld) 36.0 % Normal [facility] Comment on above: Order Comment: Speci men Type: BLOOD SPECIMENOrdering Facility: [facility] Address: [address] [place] [address] Performed By: #### 5 7021-8 ####[facility] LABCLIA [id number] [address] LABCLIA [id number] [place] [address] [place] Nucleated RBC/100 WBC (Bld) [Ratio] 0.0 /100 WBC Normal [facility] Comment on above: Order Comment: Speci men Type: BLOOD SPECIMENOrdering Facility: [facility] Address: [address] [place] [address] Performed By: #### 5 7021-8 ####[facility] LABCLIA [id number] [address] LABCLIA [id number] [place] [address] [place] Ovalocytes LM Ql (Bld) Few Normal [facility] Comment on above: Order Comment: Speci men Type: BLOOD SPECIMENOrdering Facility: [facility] Address: [address] [place] [address] Performed By: #### 5 7021-8 ####[facility] LABCLIA [id number] [address] LABCLIA [id number] [place] [address] [place] PLATELET ESTIMATE Decreased Normal [facility] Comment on above: Order Comment: Speci men Type: BLOOD SPECIMENOrdering Facility: [facility] Address: [address] [place] [address] Performed By: #### 5 7021-8 ####[facility] LABCLIA [id number] [address] LABCLIA [id number] [place] [address] [place] Platelet mean volume (Bld) [Entitic vol] 14.1 fL High 9.0-12.7 [facility] Comment on above: Order Comment: Speci men Type: BLOOD SPECIMENOrdering Facility: [facility] Address: [address] [place] [address] Performed By: #### 5 7021-8 ####[facility] LABCLIA [id number] [address] LABCLIA [id number] [place] [address] [place] Platelets (Bld) [#/Vol] 75 10*3/uL Low 150-400 [facility] Comment on above: Order Comment: Speci men Type: BLOOD SPECIMENOrdering Facility: [facility] Address: [address] [place] [address] Result Comment: Resu lts checked and verified. No clot detected. Sample checked for clot Performed By: #### 5 7021-8 ####[facility] LABCLIA [id number] [address] LABCLIA [id number] [place] [address] [place] RBC (Bld) [#/Vol] 2.57 10*6/uL Low 4.20-6.00 [facility] Comment on above: Order Comment: Speci men Type: BLOOD SPECIMENOrdering Facility: [facility] Address: [address] [place] [address] Performed By: #### 5 7021-8 ####[facility] LABCLIA [id number] [address] LABCLIA [id number] [place] [address] [place] RBC FRAGMENTS Few Abnormal None Seen [facility] Comment on above: Order Comment: Speci men Type: BLOOD SPECIMENOrdering Facility: [facility] Address: [address] [place] [address] Performed By: #### 5 7021-8 ####[facility] LABCLIA [id number] [address] LABCLIA [id number] [place] [address] [place] RED CELL MORPH Reviewed: see result s of individual morphologies Normal [facility] Comment on above: Order Comment: Speci men Type: BLOOD SPECIMENOrdering Facility: [facility] Address: [address] [place] [address] Performed By: #### 5 7021-8 ####[facility] LABCLIA [id number] [address] LABCLIA [id number] [place] [address] [place] WAM - ABS BASO 0.00 k/uL Normal <0.11 [facility] Comment on above: Order Comment: Speci men Type: BLOOD SPECIMENOrdering Facility: [facility] Address: [address] [place] [address] Performed By: #### 5 7021-8 ####[facility] LABCLIA [id number] [address] LABCLIA [id number] [place] [address] [place] WAM - ABS MONO 0.33 k/uL Normal <0.87 [facility] Comment on above: Order Comment: Speci men Type: BLOOD SPECIMENOrdering Facility: [facility] Address: [address] [place], [place] [address] Performed By: #### 5 7021-8 ####[facility] LABCLIA [id number] [address] LABCLIA [id number] [place] [address] [place] WAM - MONO% 18.0 % Normal [facility] Comment on above: Order Comment: Speci men Type: BLOOD SPECIMENOrdering Facility: [facility] Address: [address] [place] [address] Performed By: #### 5 7021-8 ####[facility] LABCLIA [id number] [address] LABCLIA [id number] [address] [place] ABSOLUTE NRBC <0.01 Normal <0.01 [facility] Comment on above: Order Comment: Speci men Type: BLOOD SPECIMENOrdering Facility: [facility] Address: [address] [place], [place] [id number] Performed By: #### 5 7021-8 ####[facility]ANT [facility] LABCLIA [id number] [address] LABCLIA [id number] [place] [address] [place] WBC (Bld) [#/Vol] 1.84 10*3/uL Low 3.70-11.00 [facility] Comment on above: Order Comment: Speci men Type: BLOOD SPECIMENOrdering Facility: [facility] Address: [address] [place] [address] Performed By: #### 5 7021-8 ####[facility] LABCLIA [id number] [place], [place] [address]VXTGP[facility] LABCLIA [id number] [place] [address] [place] WBC Left Shift Ql (Bld) Present Normal [facility] Comment on above: Order Comment: Speci men Type: BLOOD SPECIMENOrdering Facility: [facility] Address: [address] [place], [place] [address] Performed By: #### 5 7021-8 ####[facility] LABCLIA [id number] [place] [id number] LABCLIA [id number] [place] [address] [place] CNOVSPon 04-29-2022 CNOVSP Normal [facility] CNPNon 04-29-2022 CNPN Normal [facility] Comprehensive metabolic 2000 panelon 04-29-2022 Albumin [Mass/Vol] 4.1 g/dL Normal 3.9-4.9 [facility] Comment on above: Order Comment: Speci men Type: BLOOD SPECIMENOrdering Facility: [facility] Address: [address] [place] [address] Performed By: #### 2 4323-8 ####[facility] LABCLIA [id number] [place] [address] ALP [Catalytic activity/Vol] 86 U/L Normal 38-113 [facility] Comment on above: Order Comment: Speci men Type: BLOOD SPECIMENOrdering Facility: [facility] Address: [address] [place] [address] Performed By: #### 2 4323-8 ####[facility] LABCLIA [id number] [place] [address] ALT [Catalytic activity/Vol] 31 U/L Normal 10-54 [facility] Comment on above: Order Comment: Speci men Type: BLOOD SPECIMENOrdering Facility: [facility] Address: [address] [place] [address] Performed By: #### 2 4323-8 ####[facility] LABCLIA [id number] [place] [address] Anion gap [Moles/Vol] 10 mmol/L Normal 9-18 [facility] Comment on above: Order Comment: Speci men Type: BLOOD SPECIMENOrdering Facility: [facility] Address: [address] [place] [address] Performed By: #### 2 4323-8 ####[facility] LABCLIA [id number] [place] [address] AST [Catalytic activity/Vol] 15 U/L Normal 14-40 [facility] Comment on above: Order Comment: Speci men Type: BLOOD SPECIMENOrdering Facility: [facility] Address: [address] [place] [address] Performed By: #### 2 4323-8 ####[facility] LABCLIA [id number] [place] [address] Bilirubin [Mass/Vol] 0.9 mg/dL Normal 0.2-1.3 [facility] Comment on above: Order Comment: Speci men Type: BLOOD SPECIMENOrdering Facility: [facility] Address: [address] [place], [place] [address] Performed By: #### 2 4323-8 ####[facility] LABCLIA [id number] [place] [address] Calcium [Mass/Vol] 8.9 mg/dL Normal 8.5-10.2 [facility] Comment on above: Order Comment: Speci men Type: BLOOD SPECIMENOrdering Facility: [facility] Address: [address] [place] [address] Performed By: #### 2 4323-8 ####[facility] LABCLIA [id number] [place] [address] Chloride [Moles/Vol] 104 mmol/L Normal 97-105 [facility] Comment on above: Order Comment: Speci men Type: BLOOD SPECIMENOrdering Facility: [facility] Address: [address] [place] [address] Performed By: #### 2 4323-8 ####[facility] LABCLIA [id number] [place] [address] CO2 [Moles/Vol] 29 mmol/L Normal 22-30 [facility] Comment on above: Order Comment: Speci men Type: BLOOD SPECIMENOrdering Facility: [facility] Address: [address] [place] [address] Performed By: #### 2 4323-8 ####[facility] LABCLIA [id number] [place] [address] Creatinine [Mass/Vol] 1.76 mg/dL High 0.73-1.22 [facility] Comment on above: Order Comment: Speci men Type: BLOOD SPECIMENOrdering Facility: [facility] Address: [address] [place] [address] Performed By: #### 2 4323-8 ####[facility] LABCLIA [id number] [place] [address] ESTIMATED GLOMERULAR FILTRATION RATE 38 mL/min/1.73m??? Low >=60 [facility] Comment on above: Order Comment: Speci men Type: BLOOD SPECIMENOrdering Facility: [facility] Address: [address] [place] [address] Result Comment: Faye mated Glomerular Filtration Rate [...] actual GFR. Performed By: #### 2 4323-8 ####[facility] LABCLIA [id number] [place] [address] Glucose [Mass/Vol] 177 mg/dL High 74-99 [facility] Comment on above: Order Comment: Speci men Type: BLOOD SPECIMENOrdering Facility: [facility] Address: [address] [place] [address] Result Comment: The [place] [employer] (ADA) provides guidance for cutoff [...] Standards of Medical Care in Diabetes 2016, [place] [employer]. Diabetes Care. 2016.39(Suppl 1). Performed By: #### 2 4323-8 ####[facility] LABCLIA [id number] [place] [address] Potassium [Moles/Vol] 3.9 mmol/L Normal 3.7-5.1 [facility] Comment on above: Order Comment: Speci men Type: BLOOD SPECIMENOrdering Facility: [facility] Address: [address] [place] [address] Performed By: #### 2 4323-8 ####[facility] LABCLIA [id number] [place] [address] Protein [Mass/Vol] 6.1 g/dL Low 6.3-8.0 [facility] Comment on above: Order Comment: Speci men Type: BLOOD SPECIMENOrdering Facility: [facility] Address: [address] [place] [address] Performed By: #### 2 4323-8 ####[facility] LABCLIA [id number] [place] [address] Sodium [Moles/Vol] 143 mmol/L Normal 136-144 [facility] Comment on above: Order Comment: Speci men Type: BLOOD SPECIMENOrdering Facility: [facility] Address: [address] [place] [address] Performed By: #### 2 4323-8 ####[facility] LABCLIA [id number] [place] [address] Urea nitrogen [Mass/Vol] 22 mg/dL Normal 9-24 [facility] Comment on above: Order Comment: Speci men Type: BLOOD SPECIMENOrdering Facility: [facility] Address: [address] [place] [address] Performed By: #### 2 4323-8 ####[facility] LABCLIA [id number] [place] [address] LDH SerPl-cCncon 04-29-2022 LDH [Catalytic activity/Vol] 212 U/L Normal 135-225 [facility] Comment on above: Order Comment: Speci men Type: BLOOD SPECIMENOrdering Facility: [facility] Address: [address] [place] [address] Performed By: #### 2 532-0 ####[facility] LABCLIA [id number] [place] [address] FLOW CYTOMETRY BONE MARROW R EFLEXon 04-27-2022 Case Report Flow Cytometry Case: [id number] Authorizing Provider: Asher Hummel MD Collected: 04/25/2022 08:35 AM Ordering Location: Hematology/Oncology Received: 04/26/2022 08:07 AM Pathologist: Josie Robison MD Specimen: Bone Marrow [facility] Gross Description A. Bone Marrow RECEIVED 1 ML BONE MARROW IN HEPARIN [facility] Interpretation Specimen type: Bone marrow aspirate Viability: [...] developed and its performance characteristics determined by [facility] [place] ([facility]). It has not been cleared or approved by the FDA. [facility] is regulated under CLIA as qualified to perform high-complexity testing. This test is used for clinical purposes. It should not be regarded as investigational or for research purposes. DSB/MS 04/26/2022 [facility] CBC W Auto Differential pane l (Bld)on 04-26-2022 Abs Baso 0.04 k/uL <0.11 k/uL [facility] Abs Wheeler 0.36 k/uL <0.87 k/uL [facility] Absolute nRBC <0.01 k/uL [facility] Anisocytosis Ql (Bld) Present [facility] Basophils/100 WBC (Bld) 1.8 % [facility] Dacrocytes LM Ql (Bld) Few [facility] Differential cell count method Nom (Bld) Manual [facility] Eosinophils (Bld) [#/Vol] 0.06 10*3/uL <0.46 k/uL [facility] Eosinophils/100 WBC (Bld) 2.7 % [facility] Erythrocyte distribution width (RBC) [Ratio] 25.2 % High 11.5 - 15.0 % [facility] Giant platelets LM Ql (Bld) Occasional [facility] Hematocrit (Bld) [Volume fraction] 28.2 % Low 39.0 - 51.0 % [facility] Hemoglobin (Bld) [Mass/Vol] 9.0 g/dL Low 13.0 - 17.0 g/dL [facility] Lymphocytes (Bld) [#/Vol] 0.82 10*3/uL Low 1.00 - 4.00 k/uL [facility] Lymphocytes/100 WBC (Bld) 34.8 % [facility] MCH (RBC) [Entitic mass] 32.0 pg 26.0 - 34.0 pg [facility] MCHC (RBC) [Mass/Vol] 31.9 g/dL 30.5 - 36.0 g/ dL [facility] MCV (RBC) [Entitic vol] 100.4 fL High 80.0 - 100.0 fL [facility] Monocytes/100 WBC (Bld) 15.2 % [facility] Neutrophils (Bld) [#/Vol] 1.07 10*3/uL Low 1.45 - 7.50 k/uL [facility] Neutrophils/100 WBC (Bld) 45.5 % [facility] Nucleated RBC/100 WBC (Bld) [Ratio] 0.0 /100 WBC [facility] Ovalocytes LM Ql (Bld) Few [facility] Platelet Estimate Decreased [facility] Platelet mean volume (Bld) [Entitic vol] [facility] Platelets (Bld) [#/Vol] 77 10*3/uL Low 150 - 400 k/uL [facility] Polychromasia LM Ql (Bld) Slight [facility] RBC (Bld) [#/Vol] 2.81 10*6/uL Low 4.20 - 6.00 m/uL [facility] RBC Fragments Few Abnormal None Seen [facility] Red Cell Morph Reviewed: see result s of individual morphologies [facility] Variant lymphocytes/100 WBC (Bld) 0.0 % [facility] WBC (Bld) [#/Vol] 2.35 10*3/uL Low 3.70 - 11.00 k/u L [facility] FLOW CYTOMETRY BONE MARROW H OLD (BMHOLD)on 04-26-2022 Flow Cytometry Order Status See Results in chart under F case ID [facility] BONE MARROW ANALYSISon 04-25 ADDENDUM 1: Normal [facility] Comment on above: Order Comment: Speci men Type: BONE MARROW SPECIMENOrdering Facility: [facility] Address: [address] [place] [address] Result Comment: The Hematologic Neoplasm next generation sequencing panel was performed on this specimen and showed the following variant(s) of strong or potential clinical significance:TET2p.?, [id number], c.4182+1G>AVAF: 44.5%TET2p.H5029W, [id number], c.5618T>CVAF: 40%ZRSR2p.R30Vfs*8, NM_005089.3, c.88delCVAF: 91.1%And the following variant(s) of uncertain significance:SFEYW3g.C95EQV_318950.4: c.214C>TVAF: 100%Please refer to the Scanned Documents tab in [employer] to view the complete report. There is no change in the diagnosis based on these results.Addendum electronically signed by Josie Robison MD on 06/06/2022 at 3:20 PM Performed By: #### B MRT ####[facility] LABCLIA [id number] [address] CASE REPORT Normal [facility] Comment on above: Order Comment: Speci men Type: BONE MARROW SPECIMENOrdering Facility: [facility] Address: [address] [place] [address] Result Comment: Bone Marrow Pathology Report Case: [id number] Provider: Asher Hummel MD Collected: 04/25/2022 08:35 AMOrdering Location: Hematology/Oncology Received: 04/25/2022 09:22 AMPathologist: JAK Escobarpecimens: A) - BONE MARROW ASPIRATE RIGHT POSTERIOR ILIAC CREST B) - BONE MARROW BIOPSY RIGHT POSTERIOR ILIAC CREST C) - BONE MARROW CLOT RIGHT POSTERIOR ILIAC CREST D) - Peripheral blood smear Performed By: #### B MRT ####[facility] LABCLIA [id number] [address] DIAGNOSIS COMMENT Normal [facility] Comment on above: Order Comment: Speci men Type: BONE MARROW SPECIMENOrdering Facility: [facility] Address: [address] [place] [address] Result Comment: The reported history of myelodysplastic syndrome is noted. The morphology of the current sample is consistent with persistent disease.Laboratory Developed Test (LDT) Disclaimer:Performance characteristics of immunohistochemical, immunofluorescent and chromogenic in-situ hybridization tests have been determined by the performing laboratory within [facility]???s [facility]ology [facility] Medicine [place] ([facility], [facility], [facility] or [facility]) in a manner consistent with CLIA requirements. One or more of these tests have not been cleared or approved by the FDA. [facility] is regulated under CLIA as qualified to perform high-complexity testing. These tests are used for clinical purposes. They should not be regarded as investigational or for research. Positive and negative controls stain appropriately. Performed By: #### B MRT ####[facility] LABCLIA [id number] [address] FINAL DIAGNOSIS Normal [facility] Comment on above: Order Comment: Speci men Type: BONE MARROW SPECIMENOrdering Facility: [facility] Address: [address] [place] [place] [address] Result Comment: A-C. 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 Peripheral blood smear:- Normocytic anemia. Leukopenia. Thrombocytopenia. Performed By: #### B MRT ####[facility] LABCLIA [id number] [address] FINAL PERFORMING LAB Normal [facility] Comment on above: Order Comment: Speci men Type: BONE MARROW SPECIMENOrdering Facility: [facility] Address: [address] [place] [place] [address] Result Comment: Diag nostic interpretation performed at [facility], [address] [place] [address] CLIA# [id number] Director: Candido Pierre M.D. Performed By: #### B MRT ####[facility] LABIA [id number] [address] GROSS DESCRIPTION Normal [facility] Comment on above: Order Comment: Speci men Type: BONE MARROW SPECIMENOrdering Facility: [facility] Address: [address] [place] [address] Result Comment: A. B ONE MARROW ASPIRATE [...] Submitted for light microscopy.Gross examination performed at [facility], [address] 04/25/2022 7:59 PM Performed By: #### B MRT ####[facility] LABIA [id number] [address] MICROSCOPIC DESCRIPTION Normal [facility] Comment on above: Order Comment: Speci men Type: BONE MARROW SPECIMENOrdering Facility: [facility] Address: [address] [place] [address] Result Comment: JOO PHERAL BLOOD:CBC (04/25/22) Diff (by report)WBC 2.35 k/uL Neut% 45.5 %Hemoglobin 9.0 g/dL Lymph% 34.8 %MCV 100.4 fL Wheeler% 15.2 %RDW-CV 25.2 % Eosin% 2.7 %Platelet [...] coat stored Performed By: #### B MRT ####[facility] [id number] [place] [address] [place] BONE MARROW CHROMOSOME ANALo n 04-25-2022 CHROMOSOME BM Normal [facility] Comment on above: Order Comment: Speci men Type: BONE MARROW SPECIMENOrdering Facility: [facility] Address: [address] [place] [address] Result Comment: Lian ramirez Accession Number: [id number]: Asher HummelPathologist: Karen Pathology No: [id number] diagnosis: Myelodysplastic syndromeSpecimen Type: Bone marrowNumber of [...] reviewed by Naomi Sena, PhD, FACMGPerformed by [facility] RehabilitationPathology and Laboratory Medicine InstituteDivision of Molecular PathologyCytogenetics Lab, [facility]-[id number] [facility]. [place], [place] [address]Phone: Toll free: Performed By: #### C [facility] ####[facility] LIMSCLIA [id number] [place] [address] [place] CBC W Auto Differential pane l (Bld)on 04-25-2022 Anisocytosis Ql (Bld) Present Normal [facility] Comment on above: Order Comment: Speci men Type: BLOOD SPECIMENOrdering Facility: [facility] Address: [address] [place] [address] Performed By: #### 5 7021-8 ####[facility] LABCLIA [id number] [address] LABCLIA [id number] [place] [address] [place] Basophils/100 WBC (Bld) 1.8 % Normal [facility] Comment on above: Order Comment: Speci men Type: BLOOD SPECIMENOrdering Facility: [facility] Address: [address] [place] [address] Performed By: #### 5 7021-8 ####[facility] LABCLIA [id number] [address] LABCLIA [id number] [place] [address] [place] Dacrocytes LM Ql (Bld) Few Normal [facility] Comment on above: Order Comment: Speci men Type: BLOOD SPECIMENOrdering Facility: [facility] Address: [address] [place] [address] Performed By: #### 5 7021-8 ####[facility] LABCLIA [id number] [address] LABCLIA [id number] [place] [address] [place] Differential cell count method Nom (Bld) Manual Normal [facility] Comment on above: Order Comment: Speci men Type: BLOOD SPECIMENOrdering Facility: [facility] Address: [address] [place], [place] [address] Performed By: #### 5 7021-8 ####[facility] LABCLIA [id number] [address] LABCLIA [id number] [place] [address] [place] Eosinophils (Bld) [#/Vol] 0.06 10*3/uL Normal <0.46 [facility] Comment on above: Order Comment: Speci men Type: BLOOD SPECIMENOrdering Facility: [facility] Address: [address] [place] [address] Performed By: #### 5 7021-8 ####[facility] LABCLIA [id number] [address] LABCLIA [id number] [place] [address] [place] Eosinophils/100 WBC (Bld) 2.7 % Normal [facility] Comment on above: Order Comment: Speci men Type: BLOOD SPECIMENOrdering Facility: [facility] Address: [address] [place] [address] Performed By: #### 5 7021-8 ####[facility] LABCLIA [id number] [address] LABCLIA [id number] [place] [address] [place] Erythrocyte distribution width (RBC) [Ratio] 25.2 % High 11.5-15.0 [facility] Comment on above: Order Comment: Speci men Type: BLOOD SPECIMENOrdering Facility: [facility] Address: [address] [place] [address] Performed By: #### 5 7021-8 ####[facility] LABCLIA [id number] [address] LABCLIA [id number] [place] [address] [place] Giant platelets LM Ql (Bld) Occasional Normal [facility] Comment on above: Order Comment: Speci men Type: BLOOD SPECIMENOrdering Facility: [facility] Address: [address] [place], [place] [address] Performed By: #### 5 7021-8 ####[facility] LABCLIA [id number] [address] LABCLIA [id number] [place] [address] [place] Hematocrit (Bld) [Volume fraction] 28.2 % Low 39.0-51.0 [facility] Comment on above: Order Comment: Speci men Type: BLOOD SPECIMENOrdering Facility: [facility] Address: [address] [place] [address] Performed By: #### 5 7021-8 ####[facility] LABCLIA [id number] [address] LABCLIA [id number] [place] [address] [place] Hemoglobin (Bld) [Mass/Vol] 9.0 g/dL Low 13.0-17.0 [facility] Comment on above: Order Comment: Speci men Type: BLOOD SPECIMENOrdering Facility: [facility] Address: [address] [place] [address] Performed By: #### 5 7021-8 ####[facility] LABCLIA [id number] [address] LABCLIA [id number] [place] [address] [place] Lymphocytes (Bld) [#/Vol] 0.82 10*3/uL Low 1.00-4.00 [facility] Comment on above: Order Comment: Speci men Type: BLOOD SPECIMENOrdering Facility: [facility] Address: [address] [place] [address] Performed By: #### 5 7021-8 ####[facility] LABCLIA [id number] [address] LABCLIA [id number] [place] [address] [place] Lymphocytes/100 WBC (Bld) 34.8 % Normal [facility] Comment on above: Order Comment: Speci men Type: BLOOD SPECIMENOrdering Facility: [facility] Address: [address] [place] [address] Performed By: #### 5 7021-8 ####[facility] LABCLIA [id number] [address] LABCLIA [id number] [place] [address] [place] MCH (RBC) [Entitic mass] 32.0 pg Normal 26.0-34.0 [facility] Comment on above: Order Comment: Speci men Type: BLOOD SPECIMENOrdering Facility: [facility] Address: [address] [place] [address] Performed By: #### 5 7021-8 ####[facility] LABCLIA [id number] [address] LABCLIA [id number] [place] [address] [place] MCHC (RBC) [Mass/Vol] 31.9 g/dL Normal 30.5-36.0 [facility] Comment on above: Order Comment: Speci men Type: BLOOD SPECIMENOrdering Facility: [facility] Address: [address] [place], [place] [address] Performed By: #### 5 7021-8 ####[facility] LABCLIA [id number] [address] LABCLIA [id number] [place] [address] [place] MCV (RBC) [Entitic vol] 100.4 fL High 80.0-100.0 [facility] Comment on above: Order Comment: Speci men Type: BLOOD SPECIMENOrdering Facility: [facility] Address: [address] [place], [place] [address] Performed By: #### 5 7021-8 ####[facility] LABCLIA [id number] [address] LABCLIA [id number] [place] [address] [place] Neutrophils (Bld) [#/Vol] 1.07 10*3/uL Low 1.45-7.50 [facility] Comment on above: Order Comment: Speci men Type: BLOOD SPECIMENOrdering Facility: [facility] Address: [address] [place], [place] [address] Performed By: #### 5 7021-8 ####[facility] LABCLIA [id number] [address] LABCLIA [id number] [place] [address] [place] Neutrophils/100 WBC (Bld) 45.5 % Normal [facility] Comment on above: Order Comment: Speci men Type: BLOOD SPECIMENOrdering Facility: [facility] Address: [address] [place] [address] Performed By: #### 5 7021-8 ####[facility] LABCLIA [id number] [address] LABCLIA [id number] [place] [address] [place] Nucleated RBC/100 WBC (Bld) [Ratio] 0.0 /100 WBC Normal [facility] Comment on above: Order Comment: Speci men Type: BLOOD SPECIMENOrdering Facility: [facility] Address: [address] [place] [address] Performed By: #### 5 7021-8 ####[facility] LABCLIA [id number] [address] LABCLIA [id number] [place] [address] [place] Ovalocytes LM Ql (Bld) Few Normal [facility] Comment on above: Order Comment: Speci men Type: BLOOD SPECIMENOrdering Facility: [facility] Address: [address] [place] [address] Performed By: #### 5 7021-8 ####[facility] LABCLIA [id number] [address] LABCLIA [id number] [place] [address] [place] PLATELET ESTIMATE Decreased Normal [facility] Comment on above: Order Comment: Speci men Type: BLOOD SPECIMENOrdering Facility: [facility] Address: [address] [place] [address] Performed By: #### 5 7021-8 ####[facility] LABCLIA [id number] [address] LABCLIA [id number] [place] [address] [place] Platelet mean volume (Bld) [Entitic vol] Normal [facility] Comment on above: Order Comment: Speci men Type: BLOOD SPECIMENOrdering Facility: [facility] Address: [address] [place] [address] Result Comment: Unab le to Report. Performed By: #### 5 7021-8 ####[facility] LABCLIA [id number] [address] LABCLIA [id number] [place] [address] [place] Platelets (Bld) [#/Vol] 77 10*3/uL Low 150-400 [facility] Comment on above: Order Comment: Speci men Type: BLOOD SPECIMENOrdering Facility: [facility] Address: [address] [place] [address] Result Comment: Samp le checked for clot Performed By: #### 5 7021-8 ####[facility] LABCLIA [id number] [address] LABCLIA [id number] [place] [address] [place] Polychromasia LM Ql (Bld) Slight Normal [facility] Comment on above: Order Comment: Speci men Type: BLOOD SPECIMENOrdering Facility: [facility] Address: [address] [place] [address] Performed By: #### 5 7021-8 ####[facility] LABCLIA [id number] [address] LABCLIA [id number] [place] [address] [place] RBC (Bld) [#/Vol] 2.81 10*6/uL Low 4.20-6.00 [facility] Comment on above: Order Comment: Speci men Type: BLOOD SPECIMENOrdering Facility: [facility] Address: [address] [place] [address] Performed By: #### 5 7021-8 ####[facility] LABCLIA [id number] [address] LABCLIA [id number] [place] [address] [place] RBC FRAGMENTS Few Abnormal None Seen [facility] Comment on above: Order Comment: Speci men Type: BLOOD SPECIMENOrdering Facility: [facility] Address: [address] [place] [address] Performed By: #### 5 7021-8 ####[facility] LABCLIA [id number] [address] LABCLIA [id number] [place] [address] [place] RED CELL MORPH Reviewed: see result s of individual morphologies Normal [facility] Comment on above: Order Comment: Speci men Type: BLOOD SPECIMENOrdering Facility: [facility] Address: [address] [place] [address] Performed By: #### 5 7021-8 ####[facility] LABCLIA [id number] [address] LABCLIA [id number] [place] [address] [place] Variant lymphocytes/100 WBC (Bld) 0.0 % Normal [facility] Comment on above: Order Comment: Speci men Type: BLOOD SPECIMENOrdering Facility: [facility] Address: [address] [place] [address] Performed By: #### 5 7021-8 ####[facility] LABCLIA [id number] [address] LABCLIA [id number] [place] [address] [place] WAM - ABS BASO 0.04 k/uL Normal <0.11 [facility] Comment on above: Order Comment: Speci men Type: BLOOD SPECIMENOrdering Facility: [facility] Address: [address] [place], [place] [address] Performed By: #### 5 7021-8 ####[facility] LABCLIA [id number] [address] LABCLIA [id number] [place] [address] [place] WAM - ABS MONO 0.36 k/uL Normal <0.87 [facility] Comment on above: Order Comment: Speci men Type: BLOOD SPECIMENOrdering Facility: [facility] Address: [address] [place] [address] Performed By: #### 5 7021-8 ####[facility] LABCLIA [id number] [address] LABCLIA [id number] [place] [address] [place] WAM - MONO% 15.2 % Normal [facility] Comment on above: Order Comment: Speci men Type: BLOOD SPECIMENOrdering Facility: [facility] Address: [address] [place], [place] [address] Performed By: #### 5 7021-8 ####[facility] LABCLIA [id number] [address] LABCLIA [id number] [place] [address] [place] WAM ABSOLUTE NRBC <0.01 Normal <0.01 [facility] Comment on above: Order Comment: Speci men Type: BLOOD SPECIMENOrdering Facility: [facility] Address: [address] [place] [address] Result Comment: This result was previously suppressed from the chart. Performed By: #### 5 7021-8 ####[facility] LABCLIA [id number] [place], [place] [address]BTNZLKTVIAC[facility] LABCLIA [id number] [place] [address] [place] WBC (Bld) [#/Vol] 2.35 10*3/uL Low 3.70-11.00 [facility] Comment on above: Order Comment: Speci men Type: BLOOD SPECIMENOrdering Facility: [facility] Address: [address] [place] [address] Result Comment: Samp le checked for clot Performed By: #### 5 7021-8 ####[facility] LABCLIA [id number] [place], [place] [address]SANDTVBBXACMC [facility] LABCLIA [id number] [place] [address] [place] CNOVSPon 04-25-2022 CNOVSP Normal [facility] Comprehensive metabolic 2000 panelon 04-25-2022 Albumin [Mass/Vol] 4.0 g/dL Normal 3.9-4.9 [facility] Comment on above: Order Comment: Speci men Type: BLOOD SPECIMENOrdering Facility: [facility] Address: [address] [place] [address] Performed By: #### 2 532-0, 28147-6 ####[facility] LABCLIA [id number] [place] [address] ALP [Catalytic activity/Vol] 83 U/L Normal 38-113 [facility] Comment on above: Order Comment: Speci men Type: BLOOD SPECIMENOrdering Facility: [facility] Address: [address] [place], [place] [address] Performed By: #### 2 532-0, 74996-2 ####[facility] LABCLIA [id number] [place] [address] ALT [Catalytic activity/Vol] 31 U/L Normal 10-54 [facility] Comment on above: Order Comment: Speci men Type: BLOOD SPECIMENOrdering Facility: [facility] Address: [address] [place] [address] Performed By: #### 2 532-0, ####[facility] LABCLIA [id number] [place] [address] Anion gap [Moles/Vol] 10 mmol/L Normal 9-18 [facility] Comment on above: Order Comment: Speci men Type: BLOOD SPECIMENOrdering Facility: [facility] Address: [address] [place] [address] Performed By: #### 2 532-0, ####[facility] LABCLIA [id number] [place] [address] AST [Catalytic activity/Vol] 17 U/L Normal 14-40 [facility] Comment on above: Order Comment: Speci men Type: BLOOD SPECIMENOrdering Facility: [facility] Address: [address] [place] [address] Performed By: #### 2 532-0, ####[facility] LABCLIA [id number] [place] [address] Bilirubin [Mass/Vol] 1.0 mg/dL Normal 0.2-1.3 [facility] Comment on above: Order Comment: Speci men Type: BLOOD SPECIMENOrdering Facility: [facility] Address: [address] [place] [address] Performed By: #### 2 532-0, ####[facility] LABCLIA [id number] [place] [address] Calcium [Mass/Vol] 8.9 mg/dL Normal 8.5-10.2 [facility] Comment on above: Order Comment: Speci men Type: BLOOD SPECIMENOrdering Facility: [facility] Address: [address] Performed By: #### 2 532-0, 87166-3 ####[facility] LABCLIA [id number] [place] [address] Chloride [Moles/Vol] 104 mmol/L Normal 97-105 [facility] Comment on above: Order Comment: Speci men Type: BLOOD SPECIMENOrdering Facility: [facility] Address: [address] [place], [place] [address] Performed By: #### 2 532-0, 29981-2 ####[facility] LABCLIA [id number] [place] [address] CO2 [Moles/Vol] 29 mmol/L Normal 22-30 [facility] Comment on above: Order Comment: Speci men Type: BLOOD SPECIMENOrdering Facility: [facility] Address: [address] [place] [address] Performed By: #### 2 532-0, 92676-5 ####[facility] LABCLIA [id number] [place] [address] Creatinine [Mass/Vol] 1.79 mg/dL High 0.73-1.22 [facility] Comment on above: Order Comment: Speci men Type: BLOOD SPECIMENOrdering Facility: [facility] Address: [address] [place] [address] Performed By: #### 2 532-0, 03303-3 ####[facility] LABCLIA [id number] [place] [address] ESTIMATED GLOMERULAR FILTRATION RATE 37 mL/min/1.73m??? Low >=60 [facility] Comment on above: Order Comment: Speci men Type: BLOOD SPECIMENOrdering Facility: [facility] Address: [address] [place] [address] Result Comment: Faye mated Glomerular Filtration Rate [...] actual GFR. Performed By: #### 2 532-0, ####[facility] LABCLIA [id number] [place] [address] Glucose [Mass/Vol] 127 mg/dL High 74-99 [facility] Comment on above: Order Comment: Davi men Type: BLOOD SPECIMENOrdering Facility: [facility] Address: [address] [place] [phone] Result Comment: The [place] [employer] (ADA) provides guidance for cutoff [...] Standards of Medical Care in Diabetes 2016, [place] [employer]. Diabetes Care. 2016.39(Suppl 1). Performed By: #### 2 532-0, ####[facility] LABCLIA [id number] [place] [address] Potassium [Moles/Vol] 4.3 mmol/L Normal 3.7-5.1 [facility] Comment on above: Order Comment: Davi men Type: BLOOD SPECIMENOrdering Facility: [facility] Address: [address] [place] [address] Performed By: #### 2 532-0, ####[facility] LABCLIA [id number] [place] [address] Protein [Mass/Vol] 6.1 g/dL Low 6.3-8.0 [facility] Comment on above: Order Comment: Speci men Type: BLOOD SPECIMENOrdering Facility: [facility] Address: [address] [place] [address] Performed By: #### 2 532-0, 68534-2 ####[facility] LABCLIA [id number] [place] [address] Sodium [Moles/Vol] 143 mmol/L Normal 136-144 [facility] Comment on above: Order Comment: Speci men Type: BLOOD SPECIMENOrdering Facility: [facility] Address: [address] [place] [address] Performed By: #### 2 532-0, 09517-8 ####[facility] LABCLIA [id number] [place] [address] Urea nitrogen [Mass/Vol] 29 mg/dL High 9-24 [facility] Comment on above: Order Comment: Speci men Type: BLOOD SPECIMENOrdering Facility: [facility] Address: [address] [place] [address] Performed By: #### 2 532-0, 41950-4 ####[facility] LABCLIA [id number] [place] [address] Albumin [Mass/Vol] 4.0 g/dL 3.9 - 4.9 g/dL [facility] ALP [Catalytic activity/Vol] 83 U/L 38 - 113 U/L [facility] ALT [Catalytic activity/Vol] 31 U/L 10 - 54 U/L [facility] Anion gap [Moles/Vol] 10 mmol/L 9 - 18 mmol/L [facility] AST [Catalytic activity/Vol] 17 U/L 14 - 40 U/L [facility] Bilirubin [Mass/Vol] 1.0 mg/dL 0.2 - 1.3 mg/dL [facility] Calcium [Mass/Vol] 8.9 mg/dL 8.5 - 10.2 mg/dL [facility] Chloride [Moles/Vol] 104 mmol/L 97 - 105 mmol/L [facility] CO2 [Moles/Vol] 29 mmol/L 22 - 30 mmol/L [facility] Creatinine [Mass/Vol] 1.79 mg/dL High 0.73 - 1.22 mg /dL [facility] Estimated Glomerular Filtration Rate 37 mL/min/1.73m Low >=60 mL/min/1.73m [facility] Glucose [Mass/Vol] 127 mg/dL High 74 - 99 mg/dL [facility] Potassium [Moles/Vol] 4.3 mmol/L 3.7 - 5.1 mmol /L [facility] Protein [Mass/Vol] 6.1 g/dL Low 6.3 - 8.0 g/dL [facility] Sodium [Moles/Vol] 143 mmol/L 136 - 144 mmol/L [facility] Urea nitrogen [Mass/Vol] 29 mg/dL High 9 - 24 mg/dL [facility] DNA EXTRACTION BONE MARROW ( BUFFY COAT)on 04-25-2022 DNA EXTRACTION BONE MARROW (BUFFY COAT) Normal [facility] Comment on above: Order Comment: Speci men Type: BONE MARROW SPECIMENOrdering Facility: [facility] Address: [address] [place] [address] Result Comment: This specimen was received and successfully processed for future DNA purification should molecular testing be needed. Specimens will be available for 3 years from date of collection.To order testing on this specimen for [facility] patients, please place an [facility] order for DNA and RNA Clinical Testing ([id number]). To order testing for patients outside of the [facility] system, please request DNA and RNA for Clinical Testing, order code [id number].If additional paperwork is required for testing, please send completed forms via secure email to . Performed By: #### N UCBUF ####[facility] LIMSCLIA [id number] [address] [place] FLOW CYTOMETRY BONE MARROW H OLD (BMHOLD)on 04-25-2022 FLOW CYTOMETRY ORDER STATUS See Results in chart under F case ID Normal [facility] Comment on above: Order Comment: Speci men Type: BONE MARROW SPECIMENOrdering Facility: [facility] Address: [address] [place], [place] [address] Performed By: #### B MHOLDRFLX, BMHOLD ####[facility] LABCLIA [id number] [place] [address] [place] FLOW CYTOMETRY BONE MARROW R EFLEXon 04-25-2022 CASE REPORT Normal [facility] Comment on above: Order Comment: Speci men Type: BONE MARROW SPECIMENOrdering Facility: [facility] Address: [address] [place] [address] Result Comment: Flow Cytometry Case: [id number] Provider: Asher Hummel MD Collected: 04/25/2022 08:35 AMOrdering Location: Hematology/Oncology Received: 04/26/2022 08:07 AMPathologist: JAK Escobarpecimen: Bone Marrow Performed By: #### B CHRIS, BMHOLD ####[facility] LABCLIA [id number] [place] [address] [place] GROSS DESCRIPTION A. Bone Marrow Normal [facility] Comment on above: Order Comment: Speci men Type: BONE MARROW SPECIMENOrdering Facility: [facility] Address: [address] [place] [address] Result Comment: RECE IVED 1 ML BONE MARROW IN HEPARIN Performed By: #### B CHRIS, BMHOLD ####[facility] LABCLIA [id number] [place] [address] [place] INTERPRETATION Normal [facility] Comment on above: Order Comment: Speci men Type: BONE MARROW SPECIMENOrdering Facility: [facility] Address: [address] [place] [address] Result Comment: Spec imen type: Bone marrow aspirateViability: 95%Flow Cytometry Bone Marrow ImmunophenotypingMarker Normal Cell Type Result (Lymphocytes)CD3 T-cells Normal PatternCD4 T-cell subset Normal PatternCD5 T-cells Normal PatternCD7 T/NK-cells Normal PatternCD8 T-cell subset Normal MwubifeOT70 Myeloid Normal SvlabmlSI72/56 NK cells Normal UktoterYC64 B-cells Normal LwmbikfAY90 Blasts Normal EajkqvfZC07 Sarmiento-leukocyte Normal Patternkappa/lambda B-cells PolytypicFlow cytometric analysis [...] developed and its performance characteristics determined by [facility]???s [facility] Pathology and Laboratory Medicine Tam[place] ([facility]). It has not been cleared or approved by the FDA. [facility] is regulated under CLIA as qualified to perform high-complexity testing. This test is used for clinical purposes. It should not be regarded as investigational or for research purposes.DSB/MS 04/26/2022 Diagnostic interpretation performed at [facility], [address] [place] [address]# [id number] Director: Candido Pierre M.D. Performed By: #### Jude MHOLDRFLX, BMHOLD ####[facility] LABCLIA [id number] [place] [address] [place] FLT3 ITD HN BONE MARROWon CLARITY SIGNOUT PATHOLOGIST [id number] Normal [facility] Comment on above: Order Comment: Speci men Type: BONE MARROW SPECIMENOrdering Facility: [facility] Address: [address] [place] [address] Performed By: #### M YMNGS, F3 ####[facility] LIMSCLIA [id number] [place] [address] [place] FLT3 ITD HN PANEL BONE MARROW Normal [facility] Comment on above: Order Comment: Speci men Type: BONE MARROW SPECIMENOrdering Facility: [facility] Address: [address] [address] Result Comment: FLT3 Internal Tandem Duplication (ITD) Mutation TestingLaboratory Accession Number: [id number] Internal Tandem Duplication (ITD) mutation: Not DetectedComment:FLT3/ITD [...] from the specimen provided. Regions of the COO8xxwbhqwd kinase receptor gene are subjected to the [...] Engl J Med.2012 Oct 16;366 (12):1079-89.3) Akosua Kirby, Carlo Holden, Main Mccall, et al. Diagnosis and mangement ofAML in adults: 2017 ELN recommendations from an international expertpanel. Blood [phone] (2017).Disclaimer:This test was developed and its performance characteristics determinedby [facility] Pathology and LaboratoryMedicine [place] ([facility]). It has not been cleared or approved bythe FDA. -[facility] is regulated under CLIA as certified to perform high-complexity testing. This test is used for clinical purposes. It shouldnot be regarded as investigational or for research.Testing and interpretation performed at [facility], [address] [place] [address]. CLIA Number: [id number] reviewed by Lisa Hernadez, PhD, FLASH Performed By: #### M DEENA, SUNSHINE ####[facility] LIMSCLIA [id number] [place] [address] [place] LD LACTATE DEHYDROon 022 LDH [Catalytic activity/Vol] 234 U/L High 135 - 225 U/L [facility] LDH SerPl-cCncon 04-25-2022 LDH [Catalytic activity/Vol] 234 U/L High 135-225 [facility] Comment on above: Order Comment: Speci men Type: BLOOD SPECIMENOrdering Facility: [facility] Address: [address] [place] [address] Performed By: #### 2 532-0, 61125-3 ####[facility] LABCLIA [id number] [place] [id number] MYELOID NGS PANEL BONE MARRO Won 04-25-2022 MYELOID NGS PANEL BONE MARROW Normal [facility] Comment on above: Order Comment: Speci men Type: BONE MARROW SPECIMENOrdering Facility: [facility] Address: [address] [place] [address] Result Comment: Myel oid NGS Panel Bone MarrowLaboratory Accession Number: [id number]:Please see linked document and/or separate report for full result whenavailable.As reviewed by Lisa Hernadez, PhD, HCLCal Performed By: #### M YMNGS, F3 ####[facility] LIMSCLIA [id number] [place] [address] [place] CNPNon 04-23-2022 CNPN Normal [facility] CBC W Auto Differential pane l (Bld)on 04-22-2022 Anisocytosis Ql (Bld) Present Normal [facility] Comment on above: Order Comment: Speci men Type: BLOOD SPECIMENOrdering Facility: [facility] Address: [address] [place] [address] Performed By: #### 5 7021-8 ####[facility] LABCLIA [id number] [address] LABCLIA [id number] [place] [address] Basophils/100 WBC (Bld) 0.0 % Normal [facility] Comment on above: Order Comment: Speci men Type: BLOOD SPECIMENOrdering Facility: [facility] Address: [address] [place] [address] Performed By: #### 5 7021-8 ####[facility] LABCLIA [id number] [address] LABCLIA [id number] [place] [address] Dacrocytes LM Ql (Bld) Few Normal [facility] Comment on above: Order Comment: Speci men Type: BLOOD SPECIMENOrdering Facility: [facility] Address: [address] [place], [place] [address] Performed By: #### 5 7021-8 ####[facility] LABCLIA [id number] [address] LABCLIA [id number] [place] [address] Differential cell count method Nom (Bld) Manual Normal [facility] Comment on above: Order Comment: Speci men Type: BLOOD SPECIMENOrdering Facility: [facility] Address: [address] [place] [address] Performed By: #### 5 7021-8 ####[facility] LABCLIA [id number] [address] LABCLIA [id number] [place] [address] Eosinophils (Bld) [#/Vol] 0.04 10*3/uL Normal <0.46 [facility] Comment on above: Order Comment: Speci men Type: BLOOD SPECIMENOrdering Facility: [facility] Address: [address] [place] [address] Performed By: #### 5 7021-8 ####[facility] LABCLIA [id number] [address] LABCLIA [id number] [place] [address] Eosinophils/100 WBC (Bld) 2.0 % Normal [facility] Comment on above: Order Comment: Speci men Type: BLOOD SPECIMENOrdering Facility: [facility] Address: [address] [place] [address] Performed By: #### 5 7021-8 ####[facility] LABCLIA [id number] [address] LABCLIA [id number] [place] [address] Erythrocyte distribution width (RBC) [Ratio] 26.1 % High 11.5-15.0 [facility] Comment on above: Order Comment: Speci men Type: BLOOD SPECIMENOrdering Facility: [facility] Address: [address] [place] [address] Performed By: #### 5 7021-8 ####[facility] LABCLIA [id number] [address] LABCLIA [id number] [place] [address] Hematocrit (Bld) [Volume fraction] 23.8 % Low 39.0-51.0 [facility] Comment on above: Order Comment: Speci men Type: BLOOD SPECIMENOrdering Facility: [facility] Address: [address] [place] [address] Performed By: #### 5 7021-8 ####[facility] LABCLIA [id number] [address] LABCLIA [id number] [place] [address] Hemoglobin (Bld) [Mass/Vol] 7.5 g/dL Low 13.0-17.0 [facility] Comment on above: Order Comment: Speci men Type: BLOOD SPECIMENOrdering Facility: [facility] Address: [address] [place] [address] Performed By: #### 5 7021-8 ####[facility] LABCLIA [id number] [address] LABCLIA [id number] [place] [address] Lymphocytes (Bld) [#/Vol] 0.89 10*3/uL Low 1.00-4.00 [facility] Comment on above: Order Comment: Speci men Type: BLOOD SPECIMENOrdering Facility: [facility] Address: [address] [place] [address] Performed By: #### 5 7021-8 ####[facility] LABCLIA [id number] [address] LABCLIA [id number] [place] [address] Lymphocytes/100 WBC (Bld) 43.0 % Normal [facility] Comment on above: Order Comment: Speci men Type: BLOOD SPECIMENOrdering Facility: [facility] Address: [address] [place] [address] Performed By: #### 5 7021-8 ####[facility] LABCLIA [id number] [address] LABCLIA [id number] [place] [address] MCH (RBC) [Entitic mass] 33.2 pg Normal 26.0-34.0 [facility] Comment on above: Order Comment: Speci men Type: BLOOD SPECIMENOrdering Facility: [facility] Address: [address] [place] [address] Performed By: #### 5 7021-8 ####[facility] LABCLIA [id number] [address] LABCLIA [id number] [place] [address] MCHC (RBC) [Mass/Vol] 31.5 g/dL Normal 30.5-36.0 [facility] Comment on above: Order Comment: Speci men Type: BLOOD SPECIMENOrdering Facility: [facility] Address: [address] [place] [address] Performed By: #### 5 7021-8 ####[facility] LABCLIA [id number] [address] LABCLIA [id number] [place] [address] MCV (RBC) [Entitic vol] 105.3 fL High 80.0-100.0 [facility] Comment on above: Order Comment: Speci men Type: BLOOD SPECIMENOrdering Facility: [facility] Address: [address] [place] [address] Performed By: #### 5 7021-8 ####[facility] LABCLIA [id number] [address] LABCLIA [id number] [place] [address] MYELO% 1.0 % Normal [facility] Comment on above: Order Comment: Speci men Type: BLOOD SPECIMENOrdering Facility: [facility] Address: [address] [place], [place] [address] Performed By: #### 5 7021-8 ####[facility] LABCLIA [id number] [address] LABCLIA [id number] [place] [address] Neutrophils (Bld) [#/Vol] 0.72 10*3/uL Low 1.45-7.50 [facility] Comment on above: Order Comment: Speci men Type: BLOOD SPECIMENOrdering Facility: [facility] Address: [address] [place], [place] [address] Performed By: #### 5 7021-8 ####[facility] LABCLIA [id number] [address] LABCLIA [id number] [place] [address] Neutrophils/100 WBC (Bld) 35.0 % Normal [facility] Comment on above: Order Comment: Speci men Type: BLOOD SPECIMENOrdering Facility: [facility] Address: [address] [place] [address] Performed By: #### 5 7021-8 ####[facility] LABCLIA [id number] [address] LABCLIA [id number] [place] [address] Nucleated RBC/100 WBC (Bld) [Ratio] 0.0 /100 WBC Normal [facility] Comment on above: Order Comment: Speci men Type: BLOOD SPECIMENOrdering Facility: [facility] Address: [address] [place] [address] Performed By: #### 5 7021-8 ####[facility] LABCLIA [id number] [address] [address] [facility] LABCLIA [id number] [place] [address] Ovalocytes LM Ql (Bld) Few Normal [facility] Comment on above: Order Comment: Speci men Type: BLOOD SPECIMENOrdering Facility: [facility] Address: [address] [place] [address] Performed By: #### 5 7021-8 ####[facility] LABCLIA [id number] [address] LABCLIA [id number] [place] [address] PLATELET ESTIMATE Decreased Normal [facility] Comment on above: Order Comment: Speci men Type: BLOOD SPECIMENOrdering Facility: [facility] Address: [address] [place] [address] Performed By: #### 5 7021-8 ####[facility] LABCLIA [id number] [place] [id number] [facility] LABCLIA [id number] [place] [address] Platelet mean volume (Bld) [Entitic vol] Normal [facility] Comment on above: Order Comment: Speci men Type: BLOOD SPECIMENOrdering Facility: [facility] Address: [address] [place] [address] Result Comment: Unab le to Report. Performed By: #### 5 7021-8 ####[facility] LABCLIA [id number] [place] [id number] [facility] LABCLIA [id number] [place] [address] Platelets (Bld) [#/Vol] 86 10*3/uL Low 150-400 [facility] Comment on above: Order Comment: Speci men Type: BLOOD SPECIMENOrdering Facility: [facility] Address: [address] [place] [address] Result Comment: Resu lts checked and verified. No clot detected Performed By: #### 5 7021-8 ####[facility] LABCLIA [id number] [address] LABCLIA [id number] [place] [address] Polychromasia LM Ql (Bld) Slight Normal [facility] Comment on above: Order Comment: Speci men Type: BLOOD SPECIMENOrdering Facility: [facility] Address: [address] [place] [address] Performed By: #### 5 7021-8 ####[facility] LABCLIA [id number] [address] LABCLIA [id number] [place] [address] RBC (Bld) [#/Vol] 2.26 10*6/uL Low 4.20-6.00 [facility] Comment on above: Order Comment: Speci men Type: BLOOD SPECIMENOrdering Facility: [facility] Address: [address] [place] [address] Performed By: #### 5 7021-8 ####[facility] LABCLIA [id number] [address] LABCLIA [id number] [place] [address] RBC FRAGMENTS Few Abnormal None Seen [facility] Comment on above: Order Comment: Speci men Type: BLOOD SPECIMENOrdering Facility: [facility] Address: [address] [place], [place] [address] Performed By: #### 5 7021-8 ####[facility] LABCLIA [id number] [address] LABCLIA [id number] [place] [address] RED CELL MORPH Reviewed: see result s of individual morphologies Normal [facility] Comment on above: Order Comment: Speci men Type: BLOOD SPECIMENOrdering Facility: [facility] Address: [address] [place] [address] Performed By: #### 5 7021-8 ####[facility] LABCLIA [id number] [address] LABCLIA [id number] [place] [address] WAM - ABS BASO 0.00 k/uL Normal <0.11 [facility] Comment on above: Order Comment: Speci men Type: BLOOD SPECIMENOrdering Facility: [facility] Address: [address] [place] [address] Performed By: #### 5 7021-8 ####[facility] LABCLIA [id number] [address] LABCLIA [id number] [place] [address] WAM - ABS MONO 0.39 k/uL Normal <0.87 [facility] Comment on above: Order Comment: Speci men Type: BLOOD SPECIMENOrdering Facility: [facility] Address: [address] [place], [place] [address] Performed By: #### 5 7021-8 ####[facility] LABCLIA [id number] [place] [id number] [facility] LABCLIA [id number] [place] [address] WAM - MONO% 19.0 % Normal [facility] Comment on above: Order Comment: Speci men Type: BLOOD SPECIMENOrdering Facility: [facility] Address: [address] [place] [address] Performed By: #### 5 7021-8 ####[facility] LABCLIA [id number] [address] LABCLIA [id number] [place] [address] [place] ABSOLUTE NRBC <0.01 Normal <0.01 [facility] Comment on above: Order Comment: Speci men Type: BLOOD SPECIMENOrdering Facility: [facility] Address: [address] [place] [address] Performed By: #### 5 7021-8 ####[facility] LABCLIA [id number] [address] LABCLIA [id number] [place] [address] WBC (Bld) [#/Vol] 2.07 10*3/uL Low 3.70-11.00 [facility] Comment on above: Order Comment: Speci men Type: BLOOD SPECIMENOrdering Facility: [facility] Address: [address] [place] [address] Result Comment: Resu lts checked and verified. No clot detected Performed By: #### 5 7021-8 ####[facility] LABCLIA [id number] [address] LABCLIA [id number] [place] [address] WBC Left Shift Ql (Bld) Present Normal [facility] Comment on above: Order Comment: Speci men Type: BLOOD SPECIMENOrdering Facility: [facility] Address: [address] [place] [address] Performed By: #### 5 7021-8 ####[facility] LABCLIA [id number] [facility] [id number] [address] [facility] LABCLIA [id number] [place] [address] CNOVSPon 04-22-2022 CNOVSP Normal [facility] CNPNon 04-22-2022 CNPN Normal [facility] Comprehensive metabolic 2000 panelon 04-22-2022 Albumin [Mass/Vol] 3.9 g/dL Normal 3.9-4.9 [facility] Comment on above: Order Comment: Speci men Type: BLOOD SPECIMENOrdering Facility: [facility] Address: [address] [place], [place] [address] Performed By: #### 2 4323-8, 2531-0 ####[facility] LABCLIA [id number] [place] [address] ALP [Catalytic activity/Vol] 83 U/L Normal 38-113 [facility] Comment on above: Order Comment: Speci men Type: BLOOD SPECIMENOrdering Facility: [facility] Address: [address] [place] [address] Performed By: #### 2 4323-8, 253-0 ####[facility] LABCLIA [id number] [place] [address] ALT [Catalytic activity/Vol] 30 U/L Normal 10-54 [facility] Comment on above: Order Comment: Speci men Type: BLOOD SPECIMENOrdering Facility: [facility] Address: [address] [place], [place] [address] Performed By: #### 2 4323-8, 2532-0 ####[facility] LABIA [id number] [place] [address] Anion gap [Moles/Vol] 9 mmol/L Normal 9-18 [facility] Comment on above: Order Comment: Speci men Type: BLOOD SPECIMENOrdering Facility: [facility] Address: [address] [place], [place] [address] Performed By: #### 2 432-8, 2531-0 ####[facility] LABCLIA [id number] [place] [address] AST [Catalytic activity/Vol] 15 U/L Normal 14-40 [facility] Comment on above: Order Comment: Speci men Type: BLOOD SPECIMENOrdering Facility: [facility] Address: [address] [place] [address] Performed By: #### 2 4328, 2531-0 ####[facility] LABCLIA [id number] [place] [address] Bilirubin [Mass/Vol] 0.8 mg/dL Normal 0.2-1.3 [facility] Comment on above: Order Comment: Speci men Type: BLOOD SPECIMENOrdering Facility: [facility] Address: [address] [place] [address] Performed By: #### 2 4328, 2531-0 ####[facility] LABIA [id number] [place] [address] Calcium [Mass/Vol] 9.1 mg/dL Normal 8.5-10.2 [facility] Comment on above: Order Comment: Speci men Type: BLOOD SPECIMENOrdering Facility: [facility] Address: [address] [place], [place] [address] Performed By: #### 2 4328, 2531-0 ####[facility] LABCLIA [id number] [place] [address] Chloride [Moles/Vol] 108 mmol/L High 97-105 [facility] Comment on above: Order Comment: Speci men Type: BLOOD SPECIMENOrdering Facility: [facility] Address: [address] [place], [place] [address] Performed By: #### 2 4328, 2531-0 ####[facility] LABCLIA [id number] [place] [address] CO2 [Moles/Vol] 28 mmol/L Normal 22-30 [facility] Comment on above: Order Comment: Speci men Type: BLOOD SPECIMENOrdering Facility: [facility] Address: [address] [place] [address] Performed By: #### 2 4323-8, 2532-0 ####[facility] LABCLIA [id number] [place] [address] Creatinine [Mass/Vol] 1.76 mg/dL High 0.73-1.22 [facility] Comment on above: Order Comment: Speci men Type: BLOOD SPECIMENOrdering Facility: [facility] Address: [address] [place] [address] Performed By: #### 2 4323-8, 253-0 ####[facility] [id number] [place] [address] ESTIMATED GLOMERULAR FILTRATION RATE 38 mL/min/1.73m??? Low >=60 [facility] Comment on above: Order Comment: Speci men Type: BLOOD SPECIMENOrdering Facility: [facility] Address: [address] [place] [address] Result Comment: Faye mated Glomerular Filtration Rate [...] GFR. Performed By: #### 2 4323-8, 2532-0 ####[facility] LABIA [id number] [place] [address] Glucose [Mass/Vol] 170 mg/dL High 74-99 [facility] Comment on above: Order Comment: Speci men Type: BLOOD SPECIMENOrdering Facility: [facility] Address: [address] [place] [address] Result Comment: The [place] [employer] (ADA) provides guidance for cutoff [...] Standards of Medical Care in Diabetes 2016, [place] [employer]. Diabetes Care. 2016.39(Suppl 1). Performed By: #### 2 4323-8, 0 ####[facility] LABCLIA [id number] [place] [address] Potassium [Moles/Vol] 4.2 mmol/L Normal 3.7-5.1 [facility] Comment on above: Order Comment: Speci men Type: BLOOD SPECIMENOrdering Facility: [facility] Address: [address] Performed By: #### 2 4323-8, ####[facility] LABIA [id number] [place] [address] Protein [Mass/Vol] 6.0 g/dL Low 6.3-8.0 [facility] Comment on above: Order Comment: Speci men Type: BLOOD SPECIMENOrdering Facility: [facility] Address: [address] [place] [address] Performed By: #### 2 4323-8, 0 ####[facility] LABCLIA [id number] [place] [address] Sodium [Moles/Vol] 145 mmol/L High 136-144 [facility] Comment on above: Order Comment: Speci men Type: BLOOD SPECIMENOrdering Facility: [facility] Address: [address] [id number] Performed By: #### 2 4323-8, 2531-0 ####[facility] LABCLIA [id number] [place] [address] Urea nitrogen [Mass/Vol] 24 mg/dL Normal 9-24 [facility] Comment on above: Order Comment: Speci men Type: BLOOD SPECIMENOrdering Facility: [facility] Address: [address] [place], [place] [address] Performed By: #### 2 4323-8, 2531-0 ####[facility] LABCLIA [id number] [place] [address] HEMOGLOBIN AND HEMATOCRITon 04-22-2022 Hematocrit (Bld) [Volume fraction] 23.1 % Critically low 42.0-54.0 [facility] Comment on above: Performed By: #### H GBHCT #### [facility] [address] [address] [address] Benito To Hemoglobin (Bld) [Mass/Vol] 7.2 g/dL Critically low 14.0-18.0 [facility] Comment on above: Performed By: #### H GBHCT #### [facility] [address] [place] [address] Dr. Benito To LDH SerPl-cCncon 04-22-2022 LDH [Catalytic activity/Vol] 220 U/L Normal 135-225 [facility] Comment on above: Order Comment: Speci men Type: BLOOD SPECIMENOrdering Facility: [facility] Address: [address] [place] [address] Performed By: #### 2 4323-8, 2531-0 ####[facility] LABCLIA [id number] [place] [address] TYPE AND SCREENon 04-22-2022 TYPE AND SCREEN Negative Normal [facility] Comment on above: Performed By: #### H H #### [facility] [address] [place] [address] Dr. Benito To CNOVSPon 09-22-2022 CNOVSP Normal [facility] CBC W Auto Differential pane l (Bld)on 04-15-2022 Basophils (Bld) [#/Vol] 0.03 10*3/uL Normal <0.11 [facility] Comment on above: Order Comment: Speci men Type: BLOOD SPECIMENOrdering Facility: [facility] Address: [address] [place] [address] Performed By: #### 5 7021-8 ####[facility] LABCLIA [id number] [place] [address] Basophils/100 WBC (Bld) 1.4 % Normal [facility] Comment on above: Order Comment: Speci men Type: BLOOD SPECIMENOrdering Facility: [facility] Address: [address] [place] [address] Performed By: #### 5 7021-8 ####[facility] LABCLIA [id number] [place] [address] Differential cell count method Nom (Bld) Auto Normal [facility] Comment on above: Order Comment: Speci men Type: BLOOD SPECIMENOrdering Facility: [facility] Address: [address] [place] [address] Performed By: #### 5 7021-8 ####[facility] LABCLIA [id number] [place] [address] Eosinophils (Bld) [#/Vol] 10*3/uL Normal <0.46 [facility] Comment on above: Order Comment: Speci men Type: BLOOD SPECIMENOrdering Facility: [facility] Address: [address] [place] [address] Performed By: #### 5 7021-8 ####[facility] LABCLIA [id number] [place] [address] Eosinophils/100 WBC (Bld) 0.5 % Normal [facility] Comment on above: Order Comment: Speci men Type: BLOOD SPECIMENOrdering Facility: [facility] Address: [address] [place], [place] [address] Performed By: #### 5 7021-8 ####[facility] LABIA [id number] [place] [address] Erythrocyte distribution width (RBC) [Ratio] 26.0 % High 11.5-15.0 [facility] Comment on above: Order Comment: Speci men Type: BLOOD SPECIMENOrdering Facility: [facility] Address: [address] [place] [address] Performed By: #### 5 7021-8 ####[facility] LABIA [id number] [place] [address] Hematocrit (Bld) [Volume fraction] 24.9 % Low 39.0-51.0 [facility] Comment on above: Order Comment: Speci men Type: BLOOD SPECIMENOrdering Facility: [facility] Address: [address] [place] [address] Performed By: #### 5 7021-8 ####[facility] LABIA [id number] [place] [address] Hemoglobin (Bld) [Mass/Vol] 7.9 g/dL Low 13.0-17.0 [facility] Comment on above: Order Comment: Speci men Type: BLOOD SPECIMENOrdering Facility: [facility] Address: [address] [place] [address] Performed By: #### 5 7021-8 ####[facility] LABIA [id number] [place] [address] IMMATURE GRAN % 6.5 % Normal [facility] Comment on above: Order Comment: Speci men Type: BLOOD SPECIMENOrdering Facility: [facility] Address: [address] [place] [address] Performed By: #### 5 7021-8 ####[facility] LABIA [id number] [place] [address] IMMATURE GRAN ABS 0.14 k/uL High <0.10 [facility] Comment on above: Order Comment: Speci men Type: BLOOD SPECIMENOrdering Facility: [facility] Address: [address] [place] [address] Performed By: #### 5 7021-8 ####[facility] LABCLIA [id number] [place] [address] Lymphocytes (Bld) [#/Vol] 0.80 10*3/uL Low 1.00-4.00 [facility] Comment on above: Order Comment: Speci men Type: BLOOD SPECIMENOrdering Facility: [facility] Address: [address] [place] [address] Performed By: #### 5 7021-8 ####[facility] LABCLIA [id number] [place] [address] Lymphocytes/100 WBC (Bld) 37.0 % Normal [facility] Comment on above: Order Comment: Speci men Type: BLOOD SPECIMENOrdering Facility: [facility] Address: [address] [place] [address] Performed By: #### 5 7021-8 ####[facility] LABIA [id number] [place] [address] MCH (RBC) [Entitic mass] 33.5 pg Normal 26.0-34.0 [facility] Comment on above: Order Comment: Speci men Type: BLOOD SPECIMENOrdering Facility: [facility] Address: [address] [place] [address] Performed By: #### 5 7021-8 ####[facility] LABCLIA [id number] [place] [address] MCHC (RBC) [Mass/Vol] 31.7 g/dL Normal 30.5-36.0 [facility] Comment on above: Order Comment: Speci men Type: BLOOD SPECIMENOrdering Facility: [facility] Address: [address] [place] [address] Performed By: #### 5 7021-8 ####[facility] LABCLIA [id number] [place] [address] MCV (RBC) [Entitic vol] 105.5 fL High 80.0-100.0 [facility] Comment on above: Order Comment: Speci men Type: BLOOD SPECIMENOrdering Facility: [facility] Address: [address] [place] [address] Performed By: #### 5 7021-8 ####[facility] LABCLIA [id number] [place] [address] Monocytes (Bld) [#/Vol] 0.28 10*3/uL Normal <0.87 [facility] Comment on above: Order Comment: Speci men Type: BLOOD SPECIMENOrdering Facility: [facility] Address: [address] [place] [address] Performed By: #### 5 7021-8 ####[facility] LABCLIA [id number] [place] [address] Monocytes/100 WBC (Bld) 13.0 % Normal [facility] Comment on above: Order Comment: Speci men Type: BLOOD SPECIMENOrdering Facility: [facility] Address: [address] [place] [address] Performed By: #### 5 7021-8 ####[facility] LABCLIA [id number] [place] [address] Neutrophils (Bld) [#/Vol] 0.90 10*3/uL Low 1.45-7.50 [facility] Comment on above: Order Comment: Speci men Type: BLOOD SPECIMENOrdering Facility: [facility] Address: [address] [place] [address] Performed By: #### 5 7021-8 ####[facility] LABCLIA [id number] [place] [address] Neutrophils/100 WBC (Bld) 41.6 % Normal [facility] Comment on above: Order Comment: Speci men Type: BLOOD SPECIMENOrdering Facility: [facility] Address: [address] [place] [address] Performed By: #### 5 7021-8 ####[facility] LABCLIA [id number] [place] [address] Nucleated RBC (Bld) [#/Vol] 0.02 10*3/uL High <0.01 [facility] Comment on above: Order Comment: Speci men Type: BLOOD SPECIMENOrdering Facility: [facility] Address: [address] [place] [address] Performed By: #### 5 7021-8 ####[facility] LABCLIA [id number] [place] [address] Nucleated RBC/100 WBC (Bld) [Ratio] 0.9 /100 WBC Normal [facility] Comment on above: Order Comment: Speci men Type: BLOOD SPECIMENOrdering Facility: [facility] Address: [address] [place] [address] Performed By: #### 5 7021-8 ####[facility] LABCLIA [id number] [place] [address] Platelet mean volume (Bld) [Entitic vol] 13.7 fL High 9.0-12.7 [facility] Comment on above: Order Comment: Speci men Type: BLOOD SPECIMENOrdering Facility: [facility] Address: [address] [place], [place] [address] Performed By: #### 5 7021-8 ####[facility] LABCLIA [id number] [place] [address] Platelets (Bld) [#/Vol] 132 10*3/uL Low 150-400 [facility] Comment on above: Order Comment: Speci men Type: BLOOD SPECIMENOrdering Facility: [facility] Address: [address] [place] [address] Result Comment: Resu lts checked and verified. No clot detected. Sample checked for clot Performed By: #### 5 7021-8 ####[facility] LABCLIA [id number] [place] [address] RBC (Bld) [#/Vol] 2.36 10*6/uL Low 4.20-6.00 [facility] Comment on above: Order Comment: Speci men Type: BLOOD SPECIMENOrdering Facility: [facility] Address: [address] [place] [address] Performed By: #### 5 7021-8 ####[facility] LABIA [id number] [place] [address] WBC (Bld) [#/Vol] 2.16 10*3/uL Low 3.70-11.00 [facility] Comment on above: Order Comment: Speci men Type: BLOOD SPECIMENOrdering Facility: [facility] Address: [address] [place] [address] Performed By: #### 5 7021-8 ####[facility] LABIA [id number] [place] [address] CNPNon 04-15-2022 CNPN Normal [facility] Comprehensive metabolic 2000 panelon 04-15-2022 Albumin [Mass/Vol] 4.0 g/dL Normal 3.9-4.9 [facility] Comment on above: Order Comment: Speci men Type: BLOOD SPECIMENOrdering Facility: [facility] Address: [address] [place] [address] Performed By: #### 2 532-0, 28511-8 ####[facility] LABIA [id number] [place] [address] ALP [Catalytic activity/Vol] 76 U/L Normal 38-113 [facility] Comment on above: Order Comment: Speci men Type: BLOOD SPECIMENOrdering Facility: [facility] Address: [address] [place] [address] Performed By: #### 2 532-0, ####[facility] LABCLIA [id number] [place] [address] ALT [Catalytic activity/Vol] 28 U/L Normal 10-54 [facility] Comment on above: Order Comment: Speci men Type: BLOOD SPECIMENOrdering Facility: [facility] Address: [address] [place] [address] Performed By: #### 2 532-0, ####[facility] LABCLIA [id number] [place] [address] Anion gap [Moles/Vol] 10 mmol/L Normal 9-18 [facility] Comment on above: Order Comment: Speci men Type: BLOOD SPECIMENOrdering Facility: [facility] Address: [address] [place] [address] Performed By: #### 2 532-0, 05675-5 ####[facility] LABCLIA [id number] [place] [address] AST [Catalytic activity/Vol] 15 U/L Normal 14-40 [facility] Comment on above: Order Comment: Speci men Type: BLOOD SPECIMENOrdering Facility: [facility] Address: [address] [place] [address] Performed By: #### 2 532-0, ####[facility] LABCLIA [id number] [place] [address] Bilirubin [Mass/Vol] 0.6 mg/dL Normal 0.2-1.3 [facility] Comment on above: Order Comment: Speci men Type: BLOOD SPECIMENOrdering Facility: [facility] Address: [address] [place] [address] Performed By: #### 2 532-0, 60041-9 ####[facility] LABCLIA [id number] [place] [address] Calcium [Mass/Vol] 8.9 mg/dL Normal 8.5-10.2 [facility] Comment on above: Order Comment: Speci men Type: BLOOD SPECIMENOrdering Facility: [facility] Address: [address] [place], [place] [address] Performed By: #### 2 532-0, 98703-9 ####[facility] LABCLIA [id number] [place] [address] Chloride [Moles/Vol] 107 mmol/L High 97-105 [facility] Comment on above: Order Comment: Speci men Type: BLOOD SPECIMENOrdering Facility: [facility] Address: [address] [place] [address] Performed By: #### 2 532-0, 21535-7 ####[facility] LABCLIA [id number] [place] [address] CO2 [Moles/Vol] 28 mmol/L Normal 22-30 [facility] Comment on above: Order Comment: Speci men Type: BLOOD SPECIMENOrdering Facility: [facility] Address: [address] [place] [address] Performed By: #### 2 532-0, 81590-6 ####[facility] LABCLIA [id number] [place] [address] Creatinine [Mass/Vol] 1.76 mg/dL High 0.73-1.22 [facility] Comment on above: Order Comment: Speci men Type: BLOOD SPECIMENOrdering Facility: [facility] Address: [address] [place] [address] Performed By: #### 2 532-0, 99281-1 ####[facility] LABCLIA [id number] [place] [address] ESTIMATED GLOMERULAR FILTRATION RATE 38 mL/min/1.73m??? Low >=60 [facility] Comment on above: Order Comment: Speci men Type: BLOOD SPECIMENOrdering Facility: [facility] Address: [address] [place] [address] Result Comment: Faye mated Glomerular Filtration Rate [...] actual GFR. Performed By: #### 2 532-0, 59656-4 ####[facility] LABIA [id number] [place] [address] Glucose [Mass/Vol] 223 mg/dL High 74-99 [facility] Comment on above: Order Comment: Davi avendaño Type: BLOOD SPECIMENOrdering Facility: [facility] Address: [address] [place] [address] Result Comment: The [place] [employer] (ADA) provides guidance for cutoff [...] Standards of Medical Care in Diabetes 2016, [place] [employer]. Diabetes Care. 2016.39(Suppl 1). Performed By: #### 2 532-0, 52793-9 ####[facility] LABIA [id number] [place] [address] Potassium [Moles/Vol] 3.9 mmol/L Normal 3.7-5.1 [facility] Comment on above: Order Comment: Davi avendaño Type: BLOOD SPECIMENOrdering Facility: [facility] Address: [address] [place] [address] Performed By: #### 2 532-0, 57968-5 ####[facility] LABCLIA [id number] [place] [address] Protein [Mass/Vol] 6.0 g/dL Low 6.3-8.0 [facility] Comment on above: Order Comment: Speci men Type: BLOOD SPECIMENOrdering Facility: [facility] Address: [address] [place] [address] Performed By: #### 2 532-0, 95071-2 ####[facility] LABCLIA [id number] [place] [address] Sodium [Moles/Vol] 145 mmol/L High 136-144 [facility] Comment on above: Order Comment: Speci men Type: BLOOD SPECIMENOrdering Facility: [facility] Address: [address] [place] [address] Performed By: #### 2 532-0, 09429-5 ####[facility] LABIA [id number] [place] [address] Urea nitrogen [Mass/Vol] 26 mg/dL High 9-24 [facility] Comment on above: Order Comment: Speci men Type: BLOOD SPECIMENOrdering Facility: [facility] Address: [address] [place] [address] Performed By: #### 2 532-0, 56775-0 ####[facility] LABIA [id number] [place] [address] LDH SerPl-cCncon 04-15-2022 LDH [Catalytic activity/Vol] 227 U/L High 135-225 [facility] Comment on above: Order Comment: Speci men Type: BLOOD SPECIMENOrdering Facility: [facility] Address: [address] [place] [address] Performed By: #### 2 532-0, 40850-0 ####[facility] LABIA [id number] [place] [address] CBC W Auto Differential pane l (Bld)on 04-08-2022 Anisocytosis Ql (Bld) Present Normal [facility] Comment on above: Order Comment: Speci men Type: BLOOD SPECIMENOrdering Facility: [facility] Address: [address] [place] [address] Performed By: #### 5 7021-8 ####[facility] LABCLIA [id number] [address] LABCLIA [id number] [place] [address] [place] Basophils/100 WBC (Bld) 2.7 % Normal [facility] Comment on above: Order Comment: Speci men Type: BLOOD SPECIMENOrdering Facility: [facility] Address: [address] [place] [address] Performed By: #### 5 7021-8 ####[facility] LABCLIA [id number] [address] LABCLIA [id number] [place] [address] [place] Differential cell count method Nom (Bld) Manual Normal [facility] Comment on above: Order Comment: Speci men Type: BLOOD SPECIMENOrdering Facility: [facility] Address: [address] [place] [address] Performed By: #### 5 7021-8 ####[facility] LABCLIA [id number] [address] LABCLIA [id number] [place] [address] [place] Eosinophils (Bld) [#/Vol] 0.01 10*3/uL Normal <0.46 [facility] Comment on above: Order Comment: Speci men Type: BLOOD SPECIMENOrdering Facility: [facility] Address: [address] [place] [address] Performed By: #### 5 7021-8 ####[facility] LABCLIA [id number] [address] LABCLIA [id number] [place] [address] [place] Eosinophils/100 WBC (Bld) 0.5 % Normal [facility] Comment on above: Order Comment: Speci men Type: BLOOD SPECIMENOrdering Facility: [facility] Address: [address] [place] [address] Performed By: #### 5 7021-8 ####[facility] LABCLIA [id number] [address] LABCLIA [id number] [place] [address] [place] Erythrocyte distribution width (RBC) [Ratio] 24.5 % High 11.5-15.0 [facility] Comment on above: Order Comment: Speci men Type: BLOOD SPECIMENOrdering Facility: [facility] Address: [address] [place] [address] Performed By: #### 5 7021-8 ####[facility] LABCLIA [id number] [address] LABCLIA [id number] [place] [address] [place] Hematocrit (Bld) [Volume fraction] 25.8 % Low 39.0-51.0 [facility] Comment on above: Order Comment: Speci men Type: BLOOD SPECIMENOrdering Facility: [facility] Address: [address] [place], [place] [address] Performed By: #### 5 7021-8 ####[facility] LABCLIA [id number] [address] LABCLIA [id number] [place] [address] [place] Hemoglobin (Bld) [Mass/Vol] 8.1 g/dL Low 13.0-17.0 [facility] Comment on above: Order Comment: Speci men Type: BLOOD SPECIMENOrdering Facility: [facility] Address: [address] [place] [address] Performed By: #### 5 7021-8 ####[facility] LABCLIA [id number] [address] LABCLIA [id number] [place] [address] [place] Lymphocytes (Bld) [#/Vol] 0.81 10*3/uL Low 1.00-4.00 [facility] Comment on above: Order Comment: Speci men Type: BLOOD SPECIMENOrdering Facility: [facility] Address: [address] [place] [address] Performed By: #### 5 7021-8 ####[facility] LABCLIA [id number] [address] LABCLIA [id number] [place] [address] [place] Lymphocytes/100 WBC (Bld) 44.8 % Normal [facility] Comment on above: Order Comment: Speci men Type: BLOOD SPECIMENOrdering Facility: [facility] Address: [address] [place] [address] Performed By: #### 5 7021-8 ####[facility] LABCLIA [id number] [address] LABCLIA [id number] [place] [address] [place] MCH (RBC) [Entitic mass] 32.5 pg Normal 26.0-34.0 [facility] Comment on above: Order Comment: Speci men Type: BLOOD SPECIMENOrdering Facility: [facility] Address: [address] [place] [address] Performed By: #### 5 7021-8 ####[facility] LABCLIA [id number] [address] LABCLIA [id number] [place] [address] [place] MCHC (RBC) [Mass/Vol] 31.4 g/dL Normal 30.5-36.0 [facility] Comment on above: Order Comment: Speci men Type: BLOOD SPECIMENOrdering Facility: [facility] Address: [address] [place] [address] Performed By: #### 5 7021-8 ####[facility] LABCLIA [id number] [address] LABCLIA [id number] [place] [address] [place] MCV (RBC) [Entitic vol] 103.6 fL High 80.0-100.0 [facility] Comment on above: Order Comment: Speci men Type: BLOOD SPECIMENOrdering Facility: [facility] Address: [address] [place], [place] [address] Performed By: #### 5 7021-8 ####[facility] LABCLIA [id number] [address] LABCLIA [id number] [place] [address] [place] Neutrophils (Bld) [#/Vol] 0.70 10*3/uL Low 1.45-7.50 [facility] Comment on above: Order Comment: Speci men Type: BLOOD SPECIMENOrdering Facility: [facility] Address: [address] [place] [address] Performed By: #### 5 7021-8 ####[facility] LABCLIA [id number] [address] LABCLIA [id number] [place] [address] [place] Neutrophils/100 WBC (Bld) 38.8 % Normal [facility] Comment on above: Order Comment: Speci men Type: BLOOD SPECIMENOrdering Facility: [facility] Address: [address] [place], [place] [address] Performed By: #### 5 7021-8 ####[facility] LABCLIA [id number] [address] LABCLIA [id number] [place] [address] [place] Nucleated RBC/100 WBC (Bld) [Ratio] 0.0 /100 WBC Normal [facility] Comment on above: Order Comment: Speci men Type: BLOOD SPECIMENOrdering Facility: [facility] Address: [address] [place] [address] Performed By: #### 5 7021-8 ####[facility] LABCLIA [id number] [address] LABCLIA [id number] [place] [address] [place] Ovalocytes LM Ql (Bld) Few Normal [facility] Comment on above: Order Comment: Speci men Type: BLOOD SPECIMENOrdering Facility: [facility] Address: [address] [place] [address] Performed By: #### 5 7021-8 ####[facility] LABCLIA [id number] [address] LABCLIA [id number] [place] [address] [place] PLATELET ESTIMATE Decreased Normal [facility] Comment on above: Order Comment: Speci men Type: BLOOD SPECIMENOrdering Facility: [facility] Address: [address] [place] [address] Performed By: #### 5 7021-8 ####[facility] LABCLIA [id number] [address] LABCLIA [id number] [place] [address] [place] Platelet mean volume (Bld) [Entitic vol] 13.8 fL High 9.0-12.7 [facility] Comment on above: Order Comment: Speci men Type: BLOOD SPECIMENOrdering Facility: [facility] Address: [address] [place] [address] Performed By: #### 5 7021-8 ####[facility] LABCLIA [id number] [address] LABCLIA [id number] [place] [address] [place] Platelets (Bld) [#/Vol] 129 10*3/uL Low 150-400 [facility] Comment on above: Order Comment: Speci men Type: BLOOD SPECIMENOrdering Facility: [facility] Address: [address] [place] [address] Result Comment: Samp le checked for clot Performed By: #### 5 7021-8 ####[facility] LABCLIA [id number] [address] LABCLIA [id number] [place] [address] [place] Polychromasia LM Ql (Bld) Slight Normal [facility] Comment on above: Order Comment: Speci men Type: BLOOD SPECIMENOrdering Facility: [facility] Address: [address] [place] [address] Performed By: #### 5 7021-8 ####[facility] LABCLIA [id number] [address] LABCLIA [id number] [place] [address] [place] RBC (Bld) [#/Vol] 2.49 10*6/uL Low 4.20-6.00 [facility] Comment on above: Order Comment: Speci men Type: BLOOD SPECIMENOrdering Facility: [facility] Address: [address] [place] [address] Performed By: #### 5 7021-8 ####[facility] LABCLIA [id number] [address] LABCLIA [id number] [place] [address] [place] RBC FRAGMENTS Few Abnormal None Seen [facility] Comment on above: Order Comment: Speci men Type: BLOOD SPECIMENOrdering Facility: [facility] Address: [address] [place] [address] Performed By: #### 5 7021-8 ####[facility] LABCLIA [id number] [address] LABCLIA [id number] [place] [address] [place] RED CELL MORPH Reviewed: see result s of individual morphologies Normal [facility] Comment on above: Order Comment: Speci men Type: BLOOD SPECIMENOrdering Facility: [facility] Address: [address] [place] [address] Performed By: #### 5 7021-8 ####[facility] LABCLIA [id number] [address] LABCLIA [id number] [place] [address] [place] Variant lymphocytes/100 WBC (Bld) 0.0 % Normal [facility] Comment on above: Order Comment: Speci men Type: BLOOD SPECIMENOrdering Facility: [facility] Address: [address] [place], [place] [address] Performed By: #### 5 7021-8 ####[facility] LABCLIA [id number] [address] LABCLIA [id number] [place] [address] [place] WAM - ABS BASO 0.05 k/uL Normal <0.11 [facility] Comment on above: Order Comment: Speci men Type: BLOOD SPECIMENOrdering Facility: [facility] Address: [address] [place] [address] Performed By: #### 5 7021-8 ####[facility] LABCLIA [id number] [address] LABCLIA [id number] [place] [address] [place] WAM - ABS MONO 0.24 k/uL Normal <0.87 [facility] Comment on above: Order Comment: Speci men Type: BLOOD SPECIMENOrdering Facility: [facility] Address: [address] [place] [address] Performed By: #### 5 7021-8 ####[facility] LABCLIA [id number] [address] LABCLIA [id number] [address] [place] WAM - MONO% 13.2 % Normal [facility] Comment on above: Order Comment: Speci men Type: BLOOD SPECIMENOrdering Facility: [facility] Address: [address] [place] [address] Performed By: #### 5 7021-8 ####[facility] LABCLIA [id number] [address] LABCLIA [id number] [place] [address] [place] W[place] ABSOLUTE NRBC <0.01 Normal <0.01 [facility] Comment on above: Order Comment: Speci men Type: BLOOD SPECIMENOrdering Facility: [facility] Address: [address] [place] [address] Result Comment: This result was previously suppressed from the chart. Performed By: #### 5 7021-8 ####[facility] LABCLIA [id number] [place], [place] [address] LABCLIA [id number] [place] [address] [place] W[place] (Bld) [#/Vol] 1.81 10*3/uL Low 3.70-11.00 [facility] Comment on above: Order Comment: Speci men Type: BLOOD SPECIMENOrdering Facility: [facility] Address: [address] [place] [address] Result Comment: [facility] Performed By: #### 5 7021-8 ####[facility] LABCLIA [id number] [address] LABCLIA [id number] [place] [address] [place] CNOVSPon 04-08-2022 CNOVSP Normal [facility] Comprehensive metabolic 2000 panelon 04-08-2022 Albumin [Mass/Vol] 3.9 g/dL Normal 3.9-4.9 [facility] Comment on above: Order Comment: Speci men Type: BLOOD SPECIMENOrdering Facility: [facility] Address: [address] [place] [address] Performed By: #### 2 532-0, 34453-9 ####[facility] LABCLIA [id number] [place] [address] ALP [Catalytic activity/Vol] 77 U/L Normal 38-113 [facility] Comment on above: Order Comment: Speci men Type: BLOOD SPECIMENOrdering Facility: [facility] Address: [address] [place], [place] [address] Performed By: #### 2 532-0, 34080-8 ####[facility] LABCLIA [id number] [place] [address] ALT [Catalytic activity/Vol] 24 U/L Normal 10-54 [facility] Comment on above: Order Comment: Speci men Type: BLOOD SPECIMENOrdering Facility: [facility] Address: [address] [place] [address] Performed By: #### 2 532-0, 57935-4 ####[facility] LABCLIA [id number] [place] [address] Anion gap [Moles/Vol] 7 mmol/L Low 9-18 [facility] Comment on above: Order Comment: Speci men Type: BLOOD SPECIMENOrdering Facility: [facility] Address: [address] [place] [address] Performed By: #### 2 532-0, ####[facility] LABCLIA [id number] [place] [address] AST [Catalytic activity/Vol] 12 U/L Low 14-40 [facility] Comment on above: Order Comment: Speci men Type: BLOOD SPECIMENOrdering Facility: [facility] Address: [address] [place] [address] Performed By: #### 2 532-0, ####[facility] LABIA [id number] [place] [address] Bilirubin [Mass/Vol] 0.7 mg/dL Normal 0.2-1.3 [facility] Comment on above: Order Comment: Speci men Type: BLOOD SPECIMENOrdering Facility: [facility] Address: [address] [place], [place] [address] Performed By: #### 2 532-0, ####[facility] LABIA [id number] [place] [address] Calcium [Mass/Vol] 8.9 mg/dL Normal 8.5-10.2 [facility] Comment on above: Order Comment: Speci men Type: BLOOD SPECIMENOrdering Facility: [facility] Address: [address] [place] [address] Performed By: #### 2 532-0, 45347-5 ####[facility] LABCLIA [id number] [place] [address] Chloride [Moles/Vol] 106 mmol/L High 97-105 [facility] Comment on above: Order Comment: Speci men Type: BLOOD SPECIMENOrdering Facility: [facility] Address: [address] [place] [address] Performed By: #### 2 532-0, 69494-4 ####[facility] LABCLIA [id number] [place] [address] CO2 [Moles/Vol] 29 mmol/L Normal 22-30 [facility] Comment on above: Order Comment: Speci men Type: BLOOD SPECIMENOrdering Facility: [facility] Address: [address] [place] [address] Performed By: #### 2 532-0, 69679-5 ####[facility] LABCLIA [id number] [place] [address] Creatinine [Mass/Vol] 1.84 mg/dL High 0.73-1.22 [facility] Comment on above: Order Comment: Speci men Type: BLOOD SPECIMENOrdering Facility: [facility] Address: [address] [place] [address] Performed By: #### 2 532-0, 63795-2 ####[facility] LABIA [id number] [place] [address] ESTIMATED GLOMERULAR FILTRATION RATE 36 mL/min/1.73m??? Low >=60 [facility] Comment on above: Order Comment: Speci men Type: BLOOD SPECIMENOrdering Facility: [facility] Address: [address] [place] [address] Result Comment: Faye mated Glomerular Filtration Rate [...] actual GFR. Performed By: #### 2 532-0, 51166-0 ####[facility] LABCLIA [id number] [place] [address] Glucose [Mass/Vol] 221 mg/dL High 74-99 [facility] Comment on above: Order Comment: Speci men Type: BLOOD SPECIMENOrdering Facility: [facility] Address: [address] [place], [place] [address] Result Comment: The [place] [employer] (ADA) provides guidance for cutoff [...] Standards of Medical Care in Diabetes 2016, [place] [employer]. Diabetes Care. 2016.39(Suppl 1). Performed By: #### 2 532-0, 64135-0 ####[facility] LABCLIA [id number] [place] [address] Potassium [Moles/Vol] 4.2 mmol/L Normal 3.7-5.1 [facility] Comment on above: Order Comment: Speci men Type: BLOOD SPECIMENOrdering Facility: [facility] Address: [address] [place] [address] Performed By: #### 2 532-0, 32429-5 ####[facility] LABIA [id number] [place] [address] Protein [Mass/Vol] 5.9 g/dL Low 6.3-8.0 [facility] Comment on above: Order Comment: Speci men Type: BLOOD SPECIMENOrdering Facility: [facility] Address: [address] [address] Performed By: #### 2 532-0, 94270-1 ####[facility] LABCLIA [id number] [place] [address] Sodium [Moles/Vol] 142 mmol/L Normal 136-144 [facility] Comment on above: Order Comment: Speci men Type: BLOOD SPECIMENOrdering Facility: [facility] Address: [address] [place] [address] Performed By: #### 2 532-0, 54505-7 ####[facility] LABCLIA [id number] [place] [address] Urea nitrogen [Mass/Vol] 24 mg/dL Normal 9-24 [facility] Comment on above: Order Comment: Speci men Type: BLOOD SPECIMENOrdering Facility: [facility] Address: [address] [place] [address] Performed By: #### 2 532-0, 79076-8 ####[facility] LABIA [id number] [place] [address] LDH SerPl-cCncon 04-08-2022 LDH [Catalytic activity/Vol] 209 U/L Normal 135-225 [facility] Comment on above: Order Comment: Speci men Type: BLOOD SPECIMENOrdering Facility: [facility] Address: [address] [place] [address] Performed By: #### 2 532-0, 70197-2 ####[facility] LABIA [id number] [place] [address] PRBC LEUKOREDUCEDon 04-07-20 ABO and Rh group Nom (Bld) Cross Match Result Compatible Unit Blood Type A Pos Unit Number [id number] Status Information Transfused Product ID Red Blood Cells Product Code [id number] Cross Match Result Compatible Unit Blood Type A Pos Unit Number [id number] Status Information Transfused Product ID Red Blood Cells Product Code [id number] Normal [facility] Comment on above: Performed By: #### H H #### [facility] [address] [address] [address] Benito To CNPNon 04-03-2022 CNPN Normal [facility] HEMOGLOBIN AND HEMATOCRITon 04-03-2022 Hematocrit (Bld) [Volume fraction] 21.8 % Critically low 42.0-54.0 [facility] Comment on above: Performed By: #### H GBHCT #### [facility] [address] [address] [address] Benito To Hemoglobin (Bld) [Mass/Vol] 6.9 g/dL Critically low 14.0-18.0 [facility] Comment on above: Performed By: #### H GBHCT #### [facility] [address] [place] [address] Dr. Benito To TYPE AND SCREENon 04-03-2022 TYPE AND SCREEN Negative Normal [facility] Comment on above: Performed By: #### H H #### [facility] [address] [place] [address] Dr. Benito To CBC W Auto Differential pane l (Bld)on 04-02-2022 Basophils (Bld) [#/Vol] 10*3/uL Normal <0.11 [facility] Comment on above: Order Comment: Speci men Type: BLOOD SPECIMENOrdering Facility: [facility] Address: [address] [place] [address] Performed By: #### 5 7021-8 ####[facility] LABCLIA [id number] [place] [id number] Basophils/100 WBC (Bld) 0.8 % Normal [facility] Comment on above: Order Comment: Speci men Type: BLOOD SPECIMENOrdering Facility: [facility] Address: [address] [place] [address] Performed By: #### 5 7021-8 ####[facility] LABCLIA [id number] [place] [address] Differential cell count method Nom (Bld) Auto Normal [facility] Comment on above: Order Comment: Speci men Type: BLOOD SPECIMENOrdering Facility: [facility] Address: [address] [place] [address] Performed By: #### 5 7021-8 ####[facility] LABCLIA [id number] [place] [address] Eosinophils (Bld) [#/Vol] 10*3/uL Normal <0.46 [facility] Comment on above: Order Comment: Speci men Type: BLOOD SPECIMENOrdering Facility: [facility] Address: [address] [place] [address] Performed By: #### 5 7021-8 ####[facility] LABCLIA [id number] [place] [address] Eosinophils/100 WBC (Bld) 0.4 % Normal [facility] Comment on above: Order Comment: Speci men Type: BLOOD SPECIMENOrdering Facility: [facility] Address: [address] [place] [address] Performed By: #### 5 7021-8 ####[facility] LABCLIA [id number] [place] [address] Erythrocyte distribution width (RBC) [Ratio] 25.1 % High 11.5-15.0 [facility] Comment on above: Order Comment: Speci men Type: BLOOD SPECIMENOrdering Facility: [facility] Address: [address] [place] [address] Performed By: #### 5 7021-8 ####[facility] LABCLIA [id number] [place] [address] Hematocrit (Bld) [Volume fraction] 22.4 % Low 39.0-51.0 [facility] Comment on above: Order Comment: Speci men Type: BLOOD SPECIMENOrdering Facility: [facility] Address: [address] [place] [address] Performed By: #### 5 7021-8 ####[facility] LABCLIA [id number] [place] [address] Hemoglobin (Bld) [Mass/Vol] 7.0 g/dL Low 13.0-17.0 [facility] Comment on above: Order Comment: Speci men Type: BLOOD SPECIMENOrdering Facility: [facility] Address: [address] [place] [address] Performed By: #### 5 7021-8 ####[facility] LABCLIA [id number] [place] [address] IMMATURE GRAN % 1.2 % Normal [facility] Comment on above: Order Comment: Speci men Type: BLOOD SPECIMENOrdering Facility: [facility] Address: [address] [place] [address] Performed By: #### 5 7021-8 ####[facility] LABCLIA [id number] [place] [address] IMMATURE GRAN ABS 0.03 k/uL Normal <0.10 [facility] Comment on above: Order Comment: Speci men Type: BLOOD SPECIMENOrdering Facility: [facility] Address: [address] [place] [address] Performed By: #### 5 7021-8 ####[facility] LABCLIA [id number] [place] [address] Lymphocytes (Bld) [#/Vol] 0.78 10*3/uL Low 1.00-4.00 [facility] Comment on above: Order Comment: Speci men Type: BLOOD SPECIMENOrdering Facility: [facility] Address: [address] [place] [address] Performed By: #### 5 7021-8 ####[facility] LABIA [id number] [place] [address] Lymphocytes/100 WBC (Bld) 31.6 % Normal [facility] Comment on above: Order Comment: Speci men Type: BLOOD SPECIMENOrdering Facility: [facility] Address: [address] [place] [address] Performed By: #### 5 7021-8 ####[facility] LABCLIA [id number] [place] [address] MCH (RBC) [Entitic mass] 32.7 pg Normal 26.0-34.0 [facility] Comment on above: Order Comment: Speci men Type: BLOOD SPECIMENOrdering Facility: [facility] Address: [address] [place] [address] Performed By: #### 5 7021-8 ####[facility] LABCLIA [id number] [place] [address] MCHC (RBC) [Mass/Vol] 31.3 g/dL Normal 30.5-36.0 [facility] Comment on above: Order Comment: Speci men Type: BLOOD SPECIMENOrdering Facility: [facility] Address: [address] [place] [address] Performed By: #### 5 7021-8 ####[facility] LABIA [id number] [place] [address] MCV (RBC) [Entitic vol] 104.7 fL High 80.0-100.0 [facility] Comment on above: Order Comment: Speci men Type: BLOOD SPECIMENOrdering Facility: [facility] Address: [address] [place] [address] Performed By: #### 5 7021-8 ####[facility] LABCLIA [id number] [place] [address] Monocytes (Bld) [#/Vol] 0.51 10*3/uL Normal <0.87 [facility] Comment on above: Order Comment: Speci men Type: BLOOD SPECIMENOrdering Facility: [facility] Address: [address] [place] [address] Performed By: #### 5 7021-8 ####[facility] LABCLIA [id number] [place] [address] Monocytes/100 WBC (Bld) 20.6 % Normal [facility] Comment on above: Order Comment: Speci men Type: BLOOD SPECIMENOrdering Facility: [facility] Address: [address] [place] [address] Performed By: #### 5 7021-8 ####[facility] LABCLIA [id number] [place] [address] Neutrophils (Bld) [#/Vol] 1.12 10*3/uL Low 1.45-7.50 [facility] Comment on above: Order Comment: Speci men Type: BLOOD SPECIMENOrdering Facility: [facility] Address: [address] [place] [address] Performed By: #### 5 7021-8 ####[facility] LABCLIA [id number] [place] [address] Neutrophils/100 WBC (Bld) 45.4 % Normal [facility] Comment on above: Order Comment: Speci men Type: BLOOD SPECIMENOrdering Facility: [facility] Address: [address] [place] [address] Performed By: #### 5 7021-8 ####[facility] LABCLIA [id number] [place] [address] Nucleated RBC (Bld) [#/Vol] 10*3/uL Normal <0.01 [facility] Comment on above: Order Comment: Speci men Type: BLOOD SPECIMENOrdering Facility: [facility] Address: [address] [place] [address] Performed By: #### 5 7021-8 ####[facility] LABCLIA [id number] [place] [address] Nucleated RBC/100 WBC (Bld) [Ratio] 0.0 /100 WBC Normal [facility] Comment on above: Order Comment: Speci men Type: BLOOD SPECIMENOrdering Facility: [facility] Address: [address] [place], [place] [address] Performed By: #### 5 7021-8 ####[facility] LABCLIA [id number] [place] [address] Platelet mean volume (Bld) [Entitic vol] 14.2 fL High 9.0-12.7 [facility] Comment on above: Order Comment: Speci men Type: BLOOD SPECIMENOrdering Facility: [facility] Address: [address] [place] [address] Performed By: #### 5 7021-8 ####[facility] LABCLIA [id number] [place] [address] Platelets (Bld) [#/Vol] 63 10*3/uL Low 150-400 [facility] Comment on above: Order Comment: Speci men Type: BLOOD SPECIMENOrdering Facility: [facility] Address: [address] [place] [address] Result Comment: Resu lts checked and verified. Sample checked for clot Performed By: #### 5 7021-8 ####[facility] LABIA [id number] [place] [address] RBC (Bld) [#/Vol] 2.14 10*6/uL Low 4.20-6.00 [facility] Comment on above: Order Comment: Speci men Type: BLOOD SPECIMENOrdering Facility: [facility] Address: [address] [place], [place] [address] Performed By: #### 5 7021-8 ####[facility] LABCLIA [id number] [place] [address] WBC (Bld) [#/Vol] 2.47 10*3/uL Low 3.70-11.00 [facility] Comment on above: Order Comment: Speci men Type: BLOOD SPECIMENOrdering Facility: [facility] Address: [address] [place] [address] Performed By: #### 5 7021-8 ####[facility] LABCLIA [id number] [place] [address] CNPNon 04-02-2022 CNPN Normal [facility] Comprehensive metabolic 2000 panelon 04-02-2022 Albumin [Mass/Vol] 3.8 g/dL Low 3.9-4.9 [facility] Comment on above: Order Comment: Speci men Type: BLOOD SPECIMENOrdering Facility: [facility] Address: [address] [place] [address] Performed By: #### 2 4323-8, 2531-0 ####[facility] LABCLIA [id number] [place] [address] ALP [Catalytic activity/Vol] 75 U/L Normal 38-113 [facility] Comment on above: Order Comment: Speci men Type: BLOOD SPECIMENOrdering Facility: [facility] Address: [address] [place] [address] Performed By: #### 2 4323-8, 2531-0 ####[facility] LABIA [id number] [place] [address] ALT [Catalytic activity/Vol] 30 U/L Normal 10-54 [facility] Comment on above: Order Comment: Speci men Type: BLOOD SPECIMENOrdering Facility: [facility] Address: [address] [place] [address] Performed By: #### 2 4323-8, 2531-0 ####[facility] LABIA [id number] [place] [address] Anion gap [Moles/Vol] 9 mmol/L Normal 9-18 [facility] Comment on above: Order Comment: Speci men Type: BLOOD SPECIMENOrdering Facility: [facility] Address: [address] [place] [address] Performed By: #### 2 4323-8, 2531-0 ####[facility] LABIA [id number] [place] [address] AST [Catalytic activity/Vol] 14 U/L Normal 14-40 [facility] Comment on above: Order Comment: Speci men Type: BLOOD SPECIMENOrdering Facility: [facility] Address: [address] [place], [place] [address] Performed By: #### 2 4323-8, 2531-0 ####[facility] LABCLIA [id number] [place] [address] Bilirubin [Mass/Vol] 0.7 mg/dL Normal 0.2-1.3 [facility] Comment on above: Order Comment: Speci men Type: BLOOD SPECIMENOrdering Facility: [facility] Address: [address] [place] [address] Performed By: #### 2 4323-8, 2531-0 ####[facility] LABCLIA [id number] [place] [address] Calcium [Mass/Vol] 9.1 mg/dL Normal 8.5-10.2 [facility] Comment on above: Order Comment: Speci men Type: BLOOD SPECIMENOrdering Facility: [facility] Address: [address] [place] [address] Performed By: #### 2 4323-8, 2531-0 ####[facility] LABCLIA [id number] [place] [address] Chloride [Moles/Vol] 107 mmol/L High 97-105 [facility] Comment on above: Order Comment: Speci men Type: BLOOD SPECIMENOrdering Facility: [facility] Address: [address] [place], [place] [address] Performed By: #### 2 4323-8, 2531-0 ####[facility] LABCLIA [id number] [place] [address] CO2 [Moles/Vol] 27 mmol/L Normal 22-30 [facility] Comment on above: Order Comment: Speci men Type: BLOOD SPECIMENOrdering Facility: [facility] Address: [address] [place] [address] Performed By: #### 2 4323-8, 2532-0 ####[facility] LABCLIA [id number] [place] [address] Creatinine [Mass/Vol] 1.72 mg/dL High 0.73-1.22 [facility] Comment on above: Order Comment: Speci men Type: BLOOD SPECIMENOrdering Facility: [facility] Address: [address] Performed By: #### 2 4323-8, 2532-0 ####[facility] LABCLIA [id number] [place] [address] ESTIMATED GLOMERULAR FILTRATION RATE 39 mL/min/1.73m??? Low >=60 [facility] Comment on above: Order Comment: Speci men Type: BLOOD SPECIMENOrdering Facility: [facility] Address: [address] [place], [place] [address] [address] Result Comment: Faye mated Glomerular Filtration [...] GFR. Performed By: #### 2 4323-8, 2532-0 ####[facility] LABIA [id number] [place] [address] Glucose [Mass/Vol] 190 mg/dL High 74-99 [facility] Comment on above: Order Comment: Speci men Type: BLOOD SPECIMENOrdering Facility: [facility] Address: [address] Result Comment: The [place] [employer] (ADA) provides guidance for cutoff [...] Standards of Medical Care in Diabetes 2016, [place] [employer]. Diabetes Care. 2016.39(Suppl 1). Performed By: #### 2 4323-8, 2531-0 ####[facility] LABCLIA [id number] [place] [address] Potassium [Moles/Vol] 4.3 mmol/L Normal 3.7-5.1 [facility] Comment on above: Order Comment: Speci men Type: BLOOD SPECIMENOrdering Facility: [facility] Address: [address] [place] [address] Performed By: #### 2 4328, 2531-0 ####[facility] LABCLIA [id number] [place] [address] Protein [Mass/Vol] 5.7 g/dL Low 6.3-8.0 [facility] Comment on above: Order Comment: Speci men Type: BLOOD SPECIMENOrdering Facility: [facility] Address: [address] [place] [address] Performed By: #### 2 4328, 2531-0 ####[facility] LABCLIA [id number] [place] [address] Sodium [Moles/Vol] 143 mmol/L Normal 136-144 [facility] Comment on above: Order Comment: Speci men Type: BLOOD SPECIMENOrdering Facility: [facility] Address: [address] [place], [place] [address] Performed By: #### 2 4328, 2531-0 ####[facility] LABCLIA [id number] [place] [address] Urea nitrogen [Mass/Vol] 25 mg/dL High 9-24 [facility] Comment on above: Order Comment: Speci men Type: BLOOD SPECIMENOrdering Facility: [facility] Address: [address] [place] [address] Performed By: #### 2 4323-8, 2531-0 ####[facility] LABCLIA [id number] [place] [address] LDH SerPl-cCncon 04-02-2022 LDH [Catalytic activity/Vol] 202 U/L Normal 135-225 [facility] Comment on above: Order Comment: Speci men Type: BLOOD SPECIMENOrdering Facility: [facility] Address: [address] [place], [place] [address] Performed By: #### 2 4323-8, 2531-0 ####[facility] LABCLIA [id number] [place] [id number] CBC W Auto Differential pane l (Bld)on 03-25-2022 Anisocytosis Ql (Bld) Present Normal [facility] Comment on above: Order Comment: Speci men Type: BLOOD SPECIMENOrdering Facility: [facility] Address: [address] [place], [place] [address] Performed By: #### 5 7021-8 ####[facility] LABCLIA [id number] [place] [id number] LABCLIA [id number] [facility] [place] [address] [place] Band form neutrophils/100 WBC (Bld) 0.0 % Normal [facility] Comment on above: Order Comment: Speci men Type: BLOOD SPECIMENOrdering Facility: [facility] Address: [address] [place], [place] [address] Performed By: #### 5 7021-8 ####[facility] LABCLIA [id number] [place] [id number] LABCLIA [id number] [facility] [place] [id number] [place] Basophils/100 WBC (Bld) 1.8 % Normal [facility] Comment on above: Order Comment: Speci men Type: BLOOD SPECIMENOrdering Facility: [facility] Address: [address] [place] [address] Performed By: #### 5 7021-8 ####[facility] LABCLIA [id number] [address] LABCLIA [id number] [place] [address] [place] Differential cell count method Nom (Bld) Manual Normal [facility] Comment on above: Order Comment: Speci men Type: BLOOD SPECIMENOrdering Facility: [facility] Address: [address] [place] [address] Performed By: #### 5 7021-8 ####[facility] LABCLIA [id number] [address] LABCLIA [id number] [place] [address] [place] Eosinophils (Bld) [#/Vol] 0.00 10*3/uL Normal <0.46 [facility] Comment on above: Order Comment: Speci men Type: BLOOD SPECIMENOrdering Facility: [facility] Address: [address] [place] [address] Performed By: #### 5 7021-8 ####[facility] LABCLIA [id number] [address] LABCLIA [id number] [place] [address] [place] Eosinophils/100 WBC (Bld) 0.0 % Normal [facility] Comment on above: Order Comment: Speci men Type: BLOOD SPECIMENOrdering Facility: [facility] Address: [address] [place] [address] Performed By: #### 5 7021-8 ####[facility] LABCLIA [id number] [address] LABCLIA [id number] [place] [address] [place] Erythrocyte distribution width (RBC) [Ratio] 24.5 % High 11.5-15.0 [facility] Comment on above: Order Comment: Speci men Type: BLOOD SPECIMENOrdering Facility: [facility] Address: [address] [place] [address] Performed By: #### 5 7021-8 ####[facility] LABCLIA [id number] [address] LABCLIA [id number] [place] [address] [place] Hematocrit (Bld) [Volume fraction] 26.0 % Low 39.0-51.0 [facility] Comment on above: Order Comment: Speci men Type: BLOOD SPECIMENOrdering Facility: [facility] Address: [address] [place], [place] [address] Performed By: #### 5 7021-8 ####[facility] [place] [facility] LABCLIA [id number] [address] LABCLIA [id number] [place] [address] [place] Hemoglobin (Bld) [Mass/Vol] 8.2 g/dL Low 13.0-17.0 [facility] Comment on above: Order Comment: Speci men Type: BLOOD SPECIMENOrdering Facility: [facility] Address: [address] [place], [place] [address] Performed By: #### 5 7021-8 ####[facility] LABCLIA [id number] [address] LABCLIA [id number] [place] [address] [place] Lymphocytes (Bld) [#/Vol] 1.18 10*3/uL Normal 1.00-4.00 [facility] Comment on above: Order Comment: Speci men Type: BLOOD SPECIMENOrdering Facility: [facility] Address: [address] [place] [address] Performed By: #### 5 7021-8 ####[facility] LABCLIA [id number] [address] LABCLIA [id number] [place] [address] [place] Lymphocytes/100 WBC (Bld) 43.2 % Normal [facility] Comment on above: Order Comment: Speci men Type: BLOOD SPECIMENOrdering Facility: [facility] Address: [address] [place] [address] Performed By: #### 5 7021-8 ####[facility] LABCLIA [id number] [address] LABCLIA [id number] [place] [address] [place] MCH (RBC) [Entitic mass] 32.7 pg Normal 26.0-34.0 [facility] Comment on above: Order Comment: Speci men Type: BLOOD SPECIMENOrdering Facility: [facility] Address: [address] [place] [address] Performed By: #### 5 7021-8 ####[facility] LABCLIA [id number] [address] LABCLIA [id number] [place] [address] [place] MCHC (RBC) [Mass/Vol] 31.5 g/dL Normal 30.5-36.0 [facility] Comment on above: Order Comment: Speci men Type: BLOOD SPECIMENOrdering Facility: [facility] Address: [address] [place] [address] Performed By: #### 5 7021-8 ####[facility] LABCLIA [id number] [address] LABCLIA [id number] [place] [address] [place] MCV (RBC) [Entitic vol] 103.6 fL High 80.0-100.0 [facility] Comment on above: Order Comment: Speci men Type: BLOOD SPECIMENOrdering Facility: [facility] Address: [address] [place] [address] Performed By: #### 5 7021-8 ####[facility] LABCLIA [id number] [address] LABCLIA [id number] [place] [address] [place] Neutrophils (Bld) [#/Vol] 1.35 10*3/uL Low 1.45-7.50 [facility] Comment on above: Order Comment: Speci men Type: BLOOD SPECIMENOrdering Facility: [facility] Address: [address] [place] [address] Performed By: #### 5 7021-8 ####[facility] LABCLIA [id number] [address] LABCLIA [id number] [place] [address] [place] Neutrophils/100 WBC (Bld) 49.6 % Normal [facility] Comment on above: Order Comment: Speci men Type: BLOOD SPECIMENOrdering Facility: [facility] Address: [address] [place], [place] [address] Performed By: #### 5 7021-8 ####[facility] LABCLIA [id number] [address] LABCLIA [id number] [place] [address] [place] Nucleated RBC/100 WBC (Bld) [Ratio] 0.0 /100 WBC Normal [facility] Comment on above: Order Comment: Speci men Type: BLOOD SPECIMENOrdering Facility: [facility] Address: [address] [place] [address] Performed By: #### 5 7021-8 ####[facility] LABCLIA [id number] [address] LABCLIA [id number] [place] [address] [place] Ovalocytes LM Ql (Bld) Few Normal [facility] Comment on above: Order Comment: Speci men Type: BLOOD SPECIMENOrdering Facility: [facility] Address: [address] [place] [address] Performed By: #### 5 7021-8 ####[facility] LABCLIA [id number] [address] LABCLIA [id number] [place] [address] [place] PLATELET ESTIMATE Decreased Normal [facility] Comment on above: Order Comment: Speci men Type: BLOOD SPECIMENOrdering Facility: [facility] Address: [address] [place] [address] Performed By: #### 5 7021-8 ####[facility] LABCLIA [id number] [address] LABCLIA [id number] [place] [address] [place] Platelet mean volume (Bld) [Entitic vol] 14.5 fL High 9.0-12.7 [facility] Comment on above: Order Comment: Speci men Type: BLOOD SPECIMENOrdering Facility: [facility] Address: [address] [place] [address] Performed By: #### 5 7021-8 ####[facility] LABCLIA [id number] [address] LABCLIA [id number] [place] [address] [place] Platelets (Bld) [#/Vol] 64 10*3/uL Low 150-400 [facility] Comment on above: Order Comment: Speci men Type: BLOOD SPECIMENOrdering Facility: [facility] Address: [address] [place] [address] Result Comment: Samp le checked for clot Performed By: #### 5 7021-8 ####[facility] LABCLIA [id number] [address] LABCLIA [id number] [place] [address] [place] Platelets agranular LM Ql (Bld) Present Normal [facility] Comment on above: Order Comment: Speci men Type: BLOOD SPECIMENOrdering Facility: [facility] Address: [address] [place] [address] Performed By: #### 5 7021-8 ####[facility] LABCLIA [id number] [address] LABCLIA [id number] [place] [address] [place] Polychromasia LM Ql (Bld) Slight Normal [facility] Comment on above: Order Comment: Speci men Type: BLOOD SPECIMENOrdering Facility: [facility] Address: [address] [place] [address] Performed By: #### 5 7021-8 ####[facility] LABCLIA [id number] [address] LABCLIA [id number] [place] [address] [place] RBC (Bld) [#/Vol] 2.51 10*6/uL Low 4.20-6.00 [facility] Comment on above: Order Comment: Speci men Type: BLOOD SPECIMENOrdering Facility: [facility] Address: [address] [place] [address] Performed By: #### 5 7021-8 ####[facility] LABCLIA [id number] [address] LABCLIA [id number] [place] [address] [place] RBC FRAGMENTS Few Abnormal None Seen [facility] Comment on above: Order Comment: Speci men Type: BLOOD SPECIMENOrdering Facility: [facility] Address: [address] [place] [address] Performed By: #### 5 7021-8 ####[facility] [place] [facility] LABCLIA [id number] [address] LABCLIA [id number] [place] [address] [place] RED CELL MORPH Reviewed: see result s of individual morphologies Normal [facility] Comment on above: Order Comment: Speci men Type: BLOOD SPECIMENOrdering Facility: [facility] Address: [address] [place] [address] Performed By: #### 5 7021-8 ####[facility] [place] [facility] LABCLIA [id number] [address] LABCLIA [id number] [address] [place] Variant lymphocytes/100 WBC (Bld) 0.0 % Normal [facility] Comment on above: Order Comment: Speci men Type: BLOOD SPECIMENOrdering Facility: [facility] Address: [address] [place] [address] Performed By: #### 5 7021-8 ####[facility] [place] [facility] LABCLIA [id number] [address] LABCLIA [id number] [place] [address] [place] WAM - ABS BASO 0.05 k/uL Normal <0.11 [facility] Comment on above: Order Comment: Speci men Type: BLOOD SPECIMENOrdering Facility: [facility] Address: [address] [place] [address] Performed By: #### 5 7021-8 ####[facility] LABCLIA [id number] [address] LABCLIA [id number] [place] [address] [place] WAM - ABS MONO 0.15 k/uL Normal <0.87 [facility] Comment on above: Order Comment: Speci men Type: BLOOD SPECIMENOrdering Facility: [facility] Address: [address] [place], [place] [address] Performed By: #### 5 7021-8 ####[facility] LABCLIA [id number] [address] LABCLIA [id number] [place] [address] [place] WAM - MONO% 5.4 % Normal [facility] Comment on above: Order Comment: Speci men Type: BLOOD SPECIMENOrdering Facility: [facility] Address: [address] [place] [address] Performed By: #### 5 7021-8 ####[facility] LABCLIA [id number] [address] LABCLIA [id number] [place] [address] [place] WAM ABSOLUTE NRBC <0.01 Normal <0.01 [facility] Comment on above: Order Comment: Speci men Type: BLOOD SPECIMENOrdering Facility: [facility] Address: [address] [place] [address] Performed By: #### 5 7021-8 ####[facility] LABCLIA [id number] [place], [place] [address]UZMXNNCLYAC[facility] LABCLIA [id number] [place] [address] [place] WBC (Bld) [#/Vol] 2.72 10*3/uL Low 3.70-11.00 [facility] Comment on above: Order Comment: Speci men Type: BLOOD SPECIMENOrdering Facility: [facility] Address: [address] [place] [address] Performed By: #### 5 7021-8 ####[facility] LABCLIA [id number] [place], [place] [address]KDLWGQCGNACMC [facility] LABCLIA [id number] [place] [address] [place] Comprehensive metabolic 2000 panelon 03-25-2022 Albumin [Mass/Vol] 3.9 g/dL Normal 3.9-4.9 [facility] Comment on above: Order Comment: Speci men Type: BLOOD SPECIMENOrdering Facility: [facility] Address: [address] [place], [place] [address] Performed By: #### 2 4323-8, 2532-0 ####[facility] LABCLIA [id number] [place] [address] ALP [Catalytic activity/Vol] 69 U/L Normal 38-113 [facility] Comment on above: Order Comment: Speci men Type: BLOOD SPECIMENOrdering Facility: [facility] Address: [address] [place], [place] [address] Performed By: #### 2 4323-8, 2532-0 ####[facility] LABCLIA [id number] [place] [address] ALT [Catalytic activity/Vol] 40 U/L Normal 10-54 [facility] Comment on above: Order Comment: Speci men Type: BLOOD SPECIMENOrdering Facility: [facility] Address: [address] [place], [place] [address] Performed By: #### 2 4323-8, 2531-0 ####[facility] [place] [facility] LABCLIA [id number] [place] [address] Anion gap [Moles/Vol] 11 mmol/L Normal 9-18 [facility] Comment on above: Order Comment: Speci men Type: BLOOD SPECIMENOrdering Facility: [facility] Address: [address] [place], [place] [address] Performed By: #### 2 4328, 2531-0 ####[facility] [place] [facility] LABCLIA [id number] [place] [address] AST [Catalytic activity/Vol] 17 U/L Normal 14-40 [facility] Comment on above: Order Comment: Speci men Type: BLOOD SPECIMENOrdering Facility: [facility] Address: [address] [place] [address] Performed By: #### 2 4328, 2531-0 ####[facility] [place] [facility] LABCLIA [id number] [place] [address] Bilirubin [Mass/Vol] 0.6 mg/dL Normal 0.2-1.3 [facility] Comment on above: Order Comment: Speci men Type: BLOOD SPECIMENOrdering Facility: [facility] Address: [address] [place], [place] [address] Performed By: #### 2 4328, 2531-0 ####[facility] [facility] LABCLIA [id number] [place] [address] Calcium [Mass/Vol] 8.9 mg/dL Normal 8.5-10.2 [facility] Comment on above: Order Comment: Speci men Type: BLOOD SPECIMENOrdering Facility: [facility] Address: [address] [place], [place] [address] Performed By: #### 2 4328, 2531-0 ####[facility] [place] [facility] LABCLIA [id number] [place] [address] Chloride [Moles/Vol] 104 mmol/L Normal 97-105 [facility] Comment on above: Order Comment: Speci men Type: BLOOD SPECIMENOrdering Facility: [facility] Address: [address] [place] [address] Performed By: #### 2 4323-8, 2532-0 ####[facility] [place] [facility] LABCLIA [id number] [place] [address] CO2 [Moles/Vol] 29 mmol/L Normal 22-30 [facility] Comment on above: Order Comment: Speci men Type: BLOOD SPECIMENOrdering Facility: [facility] Address: [address] [place] [address] Performed By: #### 2 4323-8, 2532-0 ####[facility] LABCLIA [id number] [place] [address] Creatinine [Mass/Vol] 1.89 mg/dL High 0.73-1.22 [facility] Comment on above: Order Comment: Speci men Type: BLOOD SPECIMENOrdering Facility: [facility] Address: [address] [place] [address] Performed By: #### 2 4323-8, 2532-0 ####[facility] LABCLIA [id number] [place] [address] ESTIMATED GLOMERULAR FILTRATION RATE 35 mL/min/1.73m??? Low >=60 [facility] Comment on above: Order Comment: Speci men Type: BLOOD SPECIMENOrdering Facility: [facility] Address: [address] [place] [address] Result Comment: Faye mated Glomerular Filtration Rate [...] GFR. Performed By: #### 2 4323-8, 2531-0 ####[facility] LABCLIA [id number] [place] [address] Glucose [Mass/Vol] 214 mg/dL High 74-99 [facility] Comment on above: Order Comment: Speci men Type: BLOOD SPECIMENOrdering Facility: [facility] Address: [address] [place], [place] [address] Result Comment: The [place] [employer] (ADA) provides guidance for cutoff [...] Standards of Medical Care in Diabetes 2016, [place] [employer]. Diabetes Care. 2016.39(Suppl 1). Performed By: #### 2 4323-8, 2531-0 ####[facility] LABCLIA [id number] [place] [address] Potassium [Moles/Vol] 4.1 mmol/L Normal 3.7-5.1 [facility] Comment on above: Order Comment: Speci men Type: BLOOD SPECIMENOrdering Facility: [facility] Address: [address] [place] [address] Performed By: #### 2 4323-8, 2531-0 ####[facility] LABIA [id number] [place] [address] Protein [Mass/Vol] 5.9 g/dL Low 6.3-8.0 [facility] Comment on above: Order Comment: Speci men Type: BLOOD SPECIMENOrdering Facility: [facility] Address: [address] [place] [address] Performed By: #### 2 4323-8, 2-0 ####[facility] LABCLIA [id number] [place] [address] Sodium [Moles/Vol] 144 mmol/L Normal 136-144 [facility] Comment on above: Order Comment: Speci men Type: BLOOD SPECIMENOrdering Facility: [facility] Address: [address] [place], [place] [address] Performed By: #### 2 4323-8, 2531-0 ####[facility] LABCLIA [id number] [place] [address] Urea nitrogen [Mass/Vol] 25 mg/dL High 9-24 [facility] Comment on above: Order Comment: Speci men Type: BLOOD SPECIMENOrdering Facility: [facility] Address: [address] [place], [place] [address] Performed By: #### 2 4323-8, 2531-0 ####[facility] LABCLIA [id number] [place] [address] LDH SerPl-cCncon 03-25-2022 LDH [Catalytic activity/Vol] 230 U/L High 135-225 [facility] Comment on above: Order Comment: Speci men Type: BLOOD SPECIMENOrdering Facility: [facility] Address: [address] [place] [address] Performed By: #### 2 4323-8, 2531-0 ####[facility] LABIA [id number] [place] [address] CNPNon 03-19-2022 CNPN Normal [facility] CBC W Auto Differential pane l (Bld)on 03-18-2022 Anisocytosis Ql (Bld) Present Normal [facility] Comment on above: Order Comment: Speci men Type: BLOOD SPECIMENOrdering Facility: [facility] Address: [address] [place] [address] Performed By: #### 5 7021-8 ####[facility] LABCLIA [id number] [place] [id number] [facility] LABCLIA [id number] [place] [address] Basophils/100 WBC (Bld) 0.0 % Normal [facility] Comment on above: Order Comment: Speci men Type: BLOOD SPECIMENOrdering Facility: [facility] Address: [address] [place], [place] [address] Performed By: #### 5 7021-8 ####[facility] LABCLIA [id number] [address] LABCLIA [id number] [place] [address] Differential cell count method Nom (Bld) Manual Normal [facility] Comment on above: Order Comment: Speci men Type: BLOOD SPECIMENOrdering Facility: [facility] Address: [address] [place] [address] Performed By: #### 5 7021-8 ####[facility] LABCLIA [id number] [address] LABCLIA [id number] [place] [address] Eosinophils (Bld) [#/Vol] 0.00 10*3/uL Normal <0.46 [facility] Comment on above: Order Comment: Speci men Type: BLOOD SPECIMENOrdering Facility: [facility] Address: [address] [place] [address] Performed By: #### 5 7021-8 ####[facility] LABCLIA [id number] [address] LABCLIA [id number] [place] [address] Eosinophils/100 WBC (Bld) 0.0 % Normal [facility] Comment on above: Order Comment: Speci men Type: BLOOD SPECIMENOrdering Facility: [facility] Address: [address] [place] [address] Performed By: #### 5 7021-8 ####[facility] LABCLIA [id number] [address] [address] [facility] LABCLIA [id number] [place] [address] Erythrocyte distribution width (RBC) [Ratio] 24.4 % High 11.5-15.0 [facility] Comment on above: Order Comment: Speci men Type: BLOOD SPECIMENOrdering Facility: [facility] Address: [address] [place], [place] [address] Performed By: #### 5 7021-8 ####[facility] LABCLIA [id number] [address] LABCLIA [id number] [place] [address] Giant platelets LM Ql (Bld) Occasional Normal [facility] Comment on above: Order Comment: Speci men Type: BLOOD SPECIMENOrdering Facility: [facility] Address: [address] [place] [address] Performed By: #### 5 7021-8 ####[facility] LABCLIA [id number] [place] [id number] [facility] LABCLIA [id number] [place] [address] Hematocrit (Bld) [Volume fraction] 29.4 % Low 39.0-51.0 [facility] Comment on above: Order Comment: Speci men Type: BLOOD SPECIMENOrdering Facility: [facility] Address: [address] [place], [place] [id number] Performed By: #### 5 7021-8 ####[facility] LABCLIA [id number] [place] [address] LABCLIA [id number] [place] [address] Hemoglobin (Bld) [Mass/Vol] 9.3 g/dL Low 13.0-17.0 [facility] Comment on above: Order Comment: Speci men Type: BLOOD SPECIMENOrdering Facility: [facility] Address: [address] [place] [address] Performed By: #### 5 7021-8 ####[facility] LABCLIA [id number] [address] LABCLIA [id number] [place] [address] Lymphocytes (Bld) [#/Vol] 0.83 10*3/uL Low 1.00-4.00 [facility] Comment on above: Order Comment: Speci men Type: BLOOD SPECIMENOrdering Facility: [facility] Address: [address] [place] [address] Performed By: #### 5 7021-8 ####[facility] LABCLIA [id number] [address] LABCLIA [id number] [place] [address] Lymphocytes/100 WBC (Bld) 24.8 % Normal [facility] Comment on above: Order Comment: Speci men Type: BLOOD SPECIMENOrdering Facility: [facility] Address: [address] [place], [place] [address] Performed By: #### 5 7021-8 ####[facility] LABCLIA [id number] [address] LABCLIA [id number] [place] [address] MCH (RBC) [Entitic mass] 32.2 pg Normal 26.0-34.0 [facility] Comment on above: Order Comment: Speci men Type: BLOOD SPECIMENOrdering Facility: [facility] Address: [address] [place] [address] Performed By: #### 5 7021-8 ####[facility] LABCLIA [id number] [address] LABCLIA [id number] [place] [address] MCHC (RBC) [Mass/Vol] 31.6 g/dL Normal 30.5-36.0 [facility] Comment on above: Order Comment: Speci men Type: BLOOD SPECIMENOrdering Facility: [facility] Address: [address] [place] [address] Performed By: #### 5 7021-8 ####[facility] LABCLIA [id number] [address] LABCLIA [id number] [place] [address] MCV (RBC) [Entitic vol] 101.7 fL High 80.0-100.0 [facility] Comment on above: Order Comment: Speci men Type: BLOOD SPECIMENOrdering Facility: [facility] Address: [address] [place] [address] Performed By: #### 5 7021-8 ####[facility] LABCLIA [id number] [address] LABCLIA [id number] [place] [address] Metamyelocytes/100 WBC (Bld) 1.8 % Normal [facility] Comment on above: Order Comment: Speci men Type: BLOOD SPECIMENOrdering Facility: [facility] Address: [address] [place] [address] Performed By: #### 5 7021-8 ####[facility] LABCLIA [id number] [address] [address] [facility] LABCLIA [id number] [place] [address] MYELO% 2.7 % Normal [facility] Comment on above: Order Comment: Speci men Type: BLOOD SPECIMENOrdering Facility: [facility] Address: [address] [place], [place] [address] Performed By: #### 5 7021-8 ####[facility] LABCLIA [id number] [place] [address] [facility] LABCLIA [id number] [place] [address] Neutrophils (Bld) [#/Vol] 2.17 10*3/uL Normal 1.45-7.50 [facility] Comment on above: Order Comment: Speci men Type: BLOOD SPECIMENOrdering Facility: [facility] Address: [address] [place] [address] Performed By: #### 5 7021-8 ####[facility] LABCLIA [id number] [address] LABCLIA [id number] [place] [address] Neutrophils/100 WBC (Bld) 64.5 % Normal [facility] Comment on above: Order Comment: Speci men Type: BLOOD SPECIMENOrdering Facility: [facility] Address: [address] [place] [address] Performed By: #### 5 7021-8 ####[facility] LABCLIA [id number] [address] LABCLIA [id number] [place] [address] Nucleated RBC/100 WBC (Bld) [Ratio] 1.8 /100 WBC Normal [facility] Comment on above: Order Comment: Speci men Type: BLOOD SPECIMENOrdering Facility: [facility] Address: [address] [place] [address] Performed By: #### 5 7021-8 ####[facility] LABCLIA [id number] [address] [address] [facility] LABCLIA [id number] [facility] [place] [address] Ovalocytes LM Ql (Bld) Few Normal [facility] Comment on above: Order Comment: Speci men Type: BLOOD SPECIMENOrdering Facility: [facility] Address: [address] [place] [address] Performed By: #### 5 7021-8 ####[facility] LABCLIA [id number] [address] LABCLIA [id number] [place] [address] PLATELET ESTIMATE Decreased Normal [facility] Comment on above: Order Comment: Speci men Type: BLOOD SPECIMENOrdering Facility: [facility] Address: [address] [place] [address] Performed By: #### 5 7021-8 ####[facility] LABCLIA [id number] [place] [address] [facility] LABCLIA [id number] [place] [address] Platelet mean volume (Bld) [Entitic vol] Normal [facility] Comment on above: Order Comment: Speci men Type: BLOOD SPECIMENOrdering Facility: [facility] Address: [address] [place], [place] [address] Result Comment: Unab le to Report. Performed By: #### 5 7021-8 ####[facility] LABCLIA [id number] [place] [address] [facility] LABCLIA [id number] [place] [address] Platelets (Bld) [#/Vol] 124 10*3/uL Low 150-400 [facility] Comment on above: Order Comment: Speci men Type: BLOOD SPECIMENOrdering Facility: [facility] Address: [address] [place] [address] Performed By: #### 5 7021-8 ####[facility] LABCLIA [id number] [address] LABCLIA [id number] [place] [address] Polychromasia LM Ql (Bld) Slight Normal [facility] Comment on above: Order Comment: Speci men Type: BLOOD SPECIMENOrdering Facility: [facility] Address: [address] [place] [address] Performed By: #### 5 7021-8 ####[facility] LABCLIA [id number] [address] LABCLIA [id number] [place] [address] RBC (Bld) [#/Vol] 2.89 10*6/uL Low 4.20-6.00 [facility] Comment on above: Order Comment: Speci men Type: BLOOD SPECIMENOrdering Facility: [facility] Address: [address] [place], [place] [address] Performed By: #### 5 7021-8 ####[facility] LABCLIA [id number] [address] LABCLIA [id number] [place] [address] RBC FRAGMENTS Few Abnormal None Seen [facility] Comment on above: Order Comment: Speci men Type: BLOOD SPECIMENOrdering Facility: [facility] Address: [address] [place], [place] [address] Performed By: #### 5 7021-8 ####[facility] LABCLIA [id number] [address] [address] [facility] LABCLIA [id number] [place] [address] RED CELL MORPH Reviewed: see result s of individual morphologies Normal [facility] Comment on above: Order Comment: Speci men Type: BLOOD SPECIMENOrdering Facility: [facility] Address: [address] [place] [address] Performed By: #### 5 7021-8 ####[facility] LABCLIA [id number] [address] LABCLIA [id number] [place] [address] Variant lymphocytes/100 WBC (Bld) 0.0 % Normal [facility] Comment on above: Order Comment: Speci men Type: BLOOD SPECIMENOrdering Facility: [facility] Address: [address] [place] [address] Performed By: #### 5 7021-8 ####[facility] LABCLIA [id number] [address] LABCLIA [id number] [place] [address] WAM - ABS BASO 0.00 k/uL Normal <0.11 [facility] Comment on above: Order Comment: Speci men Type: BLOOD SPECIMENOrdering Facility: [facility] Address: [address] [place], [place] [address] Performed By: #### 5 7021-8 ####[facility] LABCLIA [id number] [place] [address] [facility] LABCLIA [id number] [place] [address] WAM - ABS MONO 0.21 k/uL Normal <0.87 [facility] Comment on above: Order Comment: Speci men Type: BLOOD SPECIMENOrdering Facility: [facility] Address: [address] [place], [place] [address] Performed By: #### 5 7021-8 ####[facility] LABCLIA [id number] [place] [address] [facility] LABCLIA [id number] [place] [address] WAM - MONO% 6.2 % Normal [facility] Comment on above: Order Comment: Speci men Type: BLOOD SPECIMENOrdering Facility: [facility] Address: [address] [place] [address] Performed By: #### 5 7021-8 ####[facility] LABCLIA [id number] [address] LABCLIA [id number] [place] [address] WAM ABSOLUTE NRBC 0.06 k/uL High <0.01 [facility] Comment on above: Order Comment: Speci men Type: BLOOD SPECIMENOrdering Facility: [facility] Address: [address] [place] [address] Result Comment: This result was previously suppressed from the chart. Performed By: #### 5 7021-8 ####[facility] LABCLIA [id number] [address] LABCLIA [id number] [place] [address] WBC (Bld) [#/Vol] 3.36 10*3/uL Low 3.70-11.00 [facility] Comment on above: Order Comment: Speci men Type: BLOOD SPECIMENOrdering Facility: [facility] Address: [address] [place] [address] Performed By: #### 5 7021-8 ####[facility] LABCLIA [id number] [address] [address] [facility] LABCLIA [id number] [place] [address] WBC Left Shift Ql (Bld) Present Normal [facility] Comment on above: Order Comment: Speci men Type: BLOOD SPECIMENOrdering Facility: [facility] Address: [address] [place], [place] [address] Performed By: #### 5 7021-8 ####[facility] LABCLIA [id number] [address] [address] [facility] LABCLIA [id number] [place] [address] CNPNon 03-18-2022 CNPN Normal [facility] metabolic 2000 panelon 03-18-2022 Albumin [Mass/Vol] 3.8 g/dL Low 3.9-4.9 [facility] Comment on above: Order Comment: Speci men Type: BLOOD SPECIMENOrdering Facility: [facility] Address: [address] [place], [place] [address] Performed By: #### 2 4323-8, 2532-0 ####[facility] LABCLIA [id number] [place] [address] ALP [Catalytic activity/Vol] 67 U/L Normal 38-113 [facility] Comment on above: Order Comment: Speci men Type: BLOOD SPECIMENOrdering Facility: [facility] Address: [address] [place] [address] Performed By: #### 2 4323-8, 2532-0 ####[facility] LABIA [id number] [place] [address] ALT [Catalytic activity/Vol] 57 U/L High 10-54 [facility] Comment on above: Order Comment: Speci men Type: BLOOD SPECIMENOrdering Facility: [facility] Address: [address] [place], [place] [address] Performed By: #### 2 4323-8, 2531-0 ####[facility] LABCLIA [id number] [place] [address] Anion gap [Moles/Vol] 9 mmol/L Normal 9-18 [facility] Comment on above: Order Comment: Speci men Type: BLOOD SPECIMENOrdering Facility: [facility] Address: [address] [place], [place] [address] Performed By: #### 2 4328, 2531-0 ####[facility] LABCLIA [id number] [place] [address] AST [Catalytic activity/Vol] 21 U/L Normal 14-40 [facility] Comment on above: Order Comment: Speci men Type: BLOOD SPECIMENOrdering Facility: [facility] Address: [address] [place] [address] Performed By: #### 2 4328, 2531-0 ####[facility] LABCLIA [id number] [place] [address] Bilirubin [Mass/Vol] 0.8 mg/dL Normal 0.2-1.3 [facility] Comment on above: Order Comment: Speci men Type: BLOOD SPECIMENOrdering Facility: [facility] Address: [address] [place] [address] Performed By: #### 2 4328, 2531-0 ####[facility] LABCLIA [id number] [place] [address] Calcium [Mass/Vol] 9.0 mg/dL Normal 8.5-10.2 [facility] Comment on above: Order Comment: Speci men Type: BLOOD SPECIMENOrdering Facility: [facility] Address: [address] [place] [address] Performed By: #### 2 43238, 2531-0 ####[facility] LABCLIA [id number] [place] [address] Chloride [Moles/Vol] 102 mmol/L Normal 97-105 [facility] Comment on above: Order Comment: Speci men Type: BLOOD SPECIMENOrdering Facility: [facility] Address: [address] [place] [address] Performed By: #### 2 4323-8, 2532-0 ####[facility] LABCLIA [id number] [place] [address] CO2 [Moles/Vol] 33 mmol/L High 22-30 [facility] Comment on above: Order Comment: Speci men Type: BLOOD SPECIMENOrdering Facility: [facility] Address: [address] [place] [address] Performed By: #### 2 4323-8, 2532-0 ####[facility] LABCLIA [id number] [place] [address] Creatinine [Mass/Vol] 1.91 mg/dL High 0.73-1.22 [facility] Comment on above: Order Comment: Speci men Type: BLOOD SPECIMENOrdering Facility: [facility] Address: [address] [place] [address] Performed By: #### 2 4323-8, 2532-0 ####[facility] LABCLIA [id number] [place] [address] ESTIMATED GLOMERULAR FILTRATION RATE 34 mL/min/1.73m??? Low >=60 [facility] Comment on above: Order Comment: Speci men Type: BLOOD SPECIMENOrdering Facility: [facility] Address: [address] [place] [address] Result Comment: Faye mated Glomerular Filtration Rate [...] GFR. Performed By: #### 2 4323-8, 0 ####[facility] LABCLIA [id number] [place] [address] Glucose [Mass/Vol] 261 mg/dL High 74-99 [facility] Comment on above: Order Comment: Speci men Type: BLOOD SPECIMENOrdering Facility: [facility] Address: [address] [place] [address] Result Comment: The [place] [employer] (ADA) provides guidance for cutoff [...] Standards of Medical Care in Diabetes 2016, [place] [employer]. Diabetes Care. 2016.39(Suppl 1). Performed By: #### 2 4323-8, ####[facility] LABCLIA [id number] [place] [address] Potassium [Moles/Vol] 3.6 mmol/L Low 3.7-5.1 [facility] Comment on above: Order Comment: Speci men Type: BLOOD SPECIMENOrdering Facility: [facility] Address: [address] [place] [address] Performed By: #### 2 4323-8, 0 ####[facility] LABCLIA [id number] [place] [address] Protein [Mass/Vol] 5.8 g/dL Low 6.3-8.0 [facility] Comment on above: Order Comment: Speci men Type: BLOOD SPECIMENOrdering Facility: [facility] Address: [address] [place], [place] [address] Performed By: #### 2 4323-8, 2532-0 ####[facility] LABCLIA [id number] [place] [address] Sodium [Moles/Vol] 144 mmol/L Normal 136-144 [facility] Comment on above: Order Comment: Speci men Type: BLOOD SPECIMENOrdering Facility: [facility] Address: [address] [place] [address] Performed By: #### 2 4323-8, 2531-0 ####[facility] LABCLIA [id number] [place] [address] Urea nitrogen [Mass/Vol] 39 mg/dL High 9-24 [facility] Comment on above: Order Comment: Speci men Type: BLOOD SPECIMENOrdering Facility: [facility] Address: [address] [place] [address] Performed By: #### 2 43238, 2531-0 ####[facility] LABCLIA [id number] [place] [address] LDH SerPl-cCncon 03-18-2022 LDH [Catalytic activity/Vol] 246 U/L High 135-225 [facility] Comment on above: Order Comment: Speci men Type: BLOOD SPECIMENOrdering Facility: [facility] Address: [address] [place] [address] Performed By: #### 2 4323-8, 2531-0 ####[facility] LABIA [id number] [place] [address] CNPNon 03-14-2022 CNPN Normal [facility] PRBC LEUKOREDUCEDon 03-12-20 ABO and Rh group Nom (Bld) Cross Match Result Compatible Unit Blood Type A Pos Unit Number [id number] Status Information Transfused Product ID Red Blood Cells Product Code [id number] Cross Match Result Compatible Unit Blood Type A Pos Unit Number [id number] Status Information Transfused Product ID Red Blood Cells Product Code [id number] Normal [facility] Comment on above: Performed By: #### T NS, PRBC #### [facility] [address] [place], [place] [address] Dr. Benito To CBC W Auto Differential pane l (Bld)on 03-11-2022 Erythrocyte distribution width (RBC) [Ratio] 25.5 % High 11.5-15.0 [facility] Comment on above: Order Comment: Speci men Type: BLOOD SPECIMENOrdering Facility: [facility] Address: [address] [place] [address] Performed By: #### 5 7021-8 ####[facility] LABCLIA [id number] [place] [address]#### [id number] ####[facility] LABCLIA [id number] [place] [address] [place] Hematocrit (Bld) [Volume fraction] 22.2 % Low 39.0-51.0 [facility] Comment on above: Order Comment: Speci men Type: BLOOD SPECIMENOrdering Facility: [facility] Address: [address] [place], [place] [address] Performed By: #### 5 7021-8 ####[facility] LABCLIA [id number] [place] [address]#### [id number] ####[facility] LABCLIA [id number] [place] [address] [place] Hemoglobin (Bld) [Mass/Vol] 6.9 g/dL Low 13.0-17.0 [facility] Comment on above: Order Comment: Speci men Type: BLOOD SPECIMENOrdering Facility: [facility] Address: [address] [place], [place] [address] Performed By: #### 5 7021-8 ####[facility] LABCLIA [id number] [place] [id number]#### [id number] ####[facility] LABCLIA [id number] [address] [place] MCH (RBC) [Entitic mass] 33.5 pg Normal 26.0-34.0 [facility] Comment on above: Order Comment: Speci men Type: BLOOD SPECIMENOrdering Facility: [facility] Address: [address] [place] [address] Performed By: #### 5 7021-8 ####[facility] LABCLIA [id number] [place] [address]#### [id number] ####[facility] LABCLIA [id number] [place] [address] [place] MCHC (RBC) [Mass/Vol] 31.1 g/dL Normal 30.5-36.0 [facility] Comment on above: Order Comment: Speci men Type: BLOOD SPECIMENOrdering Facility: [facility] Address: [address] [place], [place] [address] Performed By: #### 5 7021-8 ####[facility] LABCLIA [id number] [place] [address]#### [id number] ####[facility] LABCLIA [id number] [place] [address] [place] MCV (RBC) [Entitic vol] 107.8 fL High 80.0-100.0 [facility] Comment on above: Order Comment: Speci men Type: BLOOD SPECIMENOrdering Facility: [facility] Address: [address] [place], [place] [address] Performed By: #### 5 7021-8 ####[facility] LABCLIA [id number] [place] [address]#### [id number] ####[facility] LABCLIA [id number] [place] [address] [place] Platelet mean volume (Bld) [Entitic vol] 13.7 fL High 9.0-12.7 [facility] Comment on above: Order Comment: Speci men Type: BLOOD SPECIMENOrdering Facility: [facility] Address: [address] [place] [address] Performed By: #### 5 7021-8 ####[facility] LABCLIA [id number] [place] [id number]#### [id number] ####[facility] LABCLIA [id number] [place] [address] [place] Platelets (Bld) [#/Vol] 119 10*3/uL Low 150-400 [facility] Comment on above: Order Comment: Speci men Type: BLOOD SPECIMENOrdering Facility: [facility] Address: [address] [place] [address] Result Comment: Samp le checked for clot Performed By: #### 5 7021-8 ####[facility] LABCLIA [id number] [place] [address]#### [id number] ####[facility] LABCLIA [id number] [place] [address] [place] RBC (Bld) [#/Vol] 2.06 10*6/uL Low 4.20-6.00 [facility] Comment on above: Order Comment: Speci men Type: BLOOD SPECIMENOrdering Facility: [facility] Address: [address] [place], [place] [address] Performed By: #### 5 7021-8 ####[facility] LABCLIA [id number] [place] [id number]#### [id number] ####[facility] LABCLIA [id number] [place] [address] [place] WBC (Bld) [#/Vol] 1.70 10*3/uL Low 3.70-11.00 [facility] Comment on above: Order Comment: Speci men Type: BLOOD SPECIMENOrdering Facility: [facility] Address: [address] [place], [place] [address] Result Comment: [facility] Performed By: #### 5 7021-8 ####[facility] LABCLIA [id number] [place] [address]#### [id number] ####[facility] LABCLIA [id number] [address] [address] [place] CNOVSPon 03-11-2022 CNOVSP Normal [facility] CNPNon 03-11-2022 CNPN Normal [facility] Comprehensive metabolic 2000 panelon 03-11-2022 Albumin [Mass/Vol] 3.8 g/dL Low 3.9-4.9 [facility] Comment on above: Order Comment: Speci men Type: BLOOD SPECIMENOrdering Facility: [facility] Address: [address] [place] [address] Performed By: #### 2 532-0, 16163-5 ####[facility] LABCLIA [id number] [place] [address] ALP [Catalytic activity/Vol] 70 U/L Normal 38-113 [facility] Comment on above: Order Comment: Speci men Type: BLOOD SPECIMENOrdering Facility: [facility] Address: [address] [place] [address] Performed By: #### 2 532-0, 07892-8 ####[facility] LABCLIA [id number] [place] [address] ALT [Catalytic activity/Vol] 19 U/L Normal 10-54 [facility] Comment on above: Order Comment: Speci men Type: BLOOD SPECIMENOrdering Facility: [facility] Address: [address] [place], [place] [id number] Performed By: #### 2 532-0, 11206-7 ####[facility] LABCLIA [id number] [place] [address] Anion gap [Moles/Vol] 12 mmol/L Normal 9-18 [facility] Comment on above: Order Comment: Speci men Type: BLOOD SPECIMENOrdering Facility: [facility] Address: [address] [place] [address] Performed By: #### 2 532-0, 94411-9 ####[facility] LABCLIA [id number] [place] [address] AST [Catalytic activity/Vol] 11 U/L Low 14-40 [facility] Comment on above: Order Comment: Speci men Type: BLOOD SPECIMENOrdering Facility: [facility] Address: [address] [place] [address] Performed By: #### 2 532-0, 86139-5 ####[facility] LABCLIA [id number] [place] [address] Bilirubin [Mass/Vol] 0.6 mg/dL Normal 0.2-1.3 [facility] Comment on above: Order Comment: Speci men Type: BLOOD SPECIMENOrdering Facility: [facility] Address: [address] [place] [address] Performed By: #### 2 532-0, 25170-5 ####[facility] LABCLIA [id number] [place] [address] Calcium [Mass/Vol] 8.6 mg/dL Normal 8.5-10.2 [facility] Comment on above: Order Comment: Speci men Type: BLOOD SPECIMENOrdering Facility: [facility] Address: [address] [place] [address] Performed By: #### 2 532-0, 97894-7 ####[facility] LABCLIA [id number] [place] [address] Chloride [Moles/Vol] 106 mmol/L High 97-105 [facility] Comment on above: Order Comment: Speci men Type: BLOOD SPECIMENOrdering Facility: [facility] Address: [address] [place] [address] Performed By: #### 2 532-0, 79199-1 ####[facility] LABCLIA [id number] [place] [address] CO2 [Moles/Vol] 27 mmol/L Normal 22-30 [facility] Comment on above: Order Comment: Speci men Type: BLOOD SPECIMENOrdering Facility: [facility] Address: [address] [place] [address] Performed By: #### 2 532-0, 60377-2 ####[facility] LABCLIA [id number] [place] [address] Creatinine [Mass/Vol] 1.86 mg/dL High 0.73-1.22 [facility] Comment on above: Order Comment: Speci men Type: BLOOD SPECIMENOrdering Facility: [facility] Address: [address] [place] [address] Performed By: #### 2 532-0, 62822-0 ####[facility] LABCLIA [id number] [place] [address] ESTIMATED GLOMERULAR FILTRATION RATE 35 mL/min/1.73m??? Low >=60 [facility] Comment on above: Order Comment: Speci men Type: BLOOD SPECIMENOrdering Facility: [facility] Address: [address] [place] [address] Result Comment: Faye mated Glomerular Filtration Rate [...] actual GFR. Performed By: #### 2 532-0, 24070-8 ####[facility] LABCLIA [id number] [place] [address] Glucose [Mass/Vol] 214 mg/dL High 74-99 [facility] Comment on above: Order Comment: Speci men Type: BLOOD SPECIMENOrdering Facility: [facility] Address: [address] [place], [place] [address] Result Comment: The [place] [employer] (ADA) provides guidance for cutoff [...] Standards of Medical Care in Diabetes 2016, [place] [employer]. Diabetes Care. 2016.39(Suppl 1). Performed By: #### 2 532-0, 15187-7 ####[facility] LABCLIA [id number] [place] [address] Potassium [Moles/Vol] 3.8 mmol/L Normal 3.7-5.1 [facility] Comment on above: Order Comment: Speci men Type: BLOOD SPECIMENOrdering Facility: [facility] Address: [address] [place], [place] [address] Performed By: #### 2 532-0, 58789-7 ####[facility] LABCLIA [id number] [place] [address] Protein [Mass/Vol] 5.8 g/dL Low 6.3-8.0 [facility] Comment on above: Order Comment: Speci men Type: BLOOD SPECIMENOrdering Facility: [facility] Address: [address] [place], [place] [address] Performed By: #### 2 532-0, 00118-0 ####[facility] LABCLIA [id number] [place] [address] Sodium [Moles/Vol] 145 mmol/L High 136-144 [facility] Comment on above: Order Comment: Speci men Type: BLOOD SPECIMENOrdering Facility: [facility] Address: [address] [place] [address] Performed By: #### 2 532-0, 97714-2 ####[facility] LABCLIA [id number] [place] [id number] Urea nitrogen [Mass/Vol] 17 mg/dL Normal 9-24 [facility] Comment on above: Order Comment: Speci men Type: BLOOD SPECIMENOrdering Facility: [facility] Address: [address] [place] [address] Performed By: #### 2 532-0, 81639-1 ####[facility] LABCLIA [id number] [place] [id number] HEMOGRAM AND PLATELon 2021 Hematocrit (Bld) [Volume fraction] 23.0 % Critically low 42.0-54.0 [facility] Comment on above: Performed By: #### T NS, PRBC #### [facility] [address] [place] [address] Dr. Benito To Hemoglobin (Bld) [Mass/Vol] 7.1 g/dL Critically low 14.0-18.0 [facility] Comment on above: Performed By: #### T NS, PRBC #### [facility] [address] [place] [address] Dr. Benito To MCH (RBC) [Entitic mass] 33.6 pg Normal 25.9-34.0 [facility] Comment on above: Performed By: #### T NS, PRBC #### [facility] [address] [place] [address] Dr. Benito To MCHC (RBC) [Mass/Vol] 30.9 g/dL Normal 29.9-35.2 [facility] Comment on above: Performed By: #### T NS, PRBC #### [facility] [address] [place] [address] Dr. Benito To MCV (RBC) [Entitic vol] 109.0 fL Critically high 80.0-94.0 [facility] Comment on above: Performed By: #### T NS, PRBC #### [facility] [address] [address] [address] Benito To PLT 108 103/ul Critically low 150-450 [facility] Comment on above: Performed By: #### T NS, PRBC #### [facility] [address] [address] [address] Benito To RBC 2.11 106/ul Critically low 4.70-6.10 [facility] Comment on above: Performed By: #### T NS, PRBC #### [facility] [address] [place] [address] [address] Benito To WBC 2.0 103/ul Critically low 4.0-11.0 [facility] Comment on above: Performed By: #### T NS, PRBC #### [facility] [address] [address] [address] Benito To LDH SerPl-cCncon 03-11-2022 LDH [Catalytic activity/Vol] 213 U/L Normal 135-225 [facility] Comment on above: Order Comment: Speci men Type: BLOOD SPECIMENOrdering Facility: [facility] Address: [address] [place] [address] Performed By: #### 2 532-0, 46819-2 ####[facility] LABCLIA [id number] [place] [address] MANUAL SCAN/DIFFon 2 ANC (SEG + BAND) MANUAL DIFF 0.56 k/uL Low 1.45-7.50 [facility] Comment on above: Order Comment: Speci men Type: BLOOD SPECIMENOrdering Facility: [facility] Address: [address] [place] [address] Performed By: #### 5 7021-8 ####[facility] LABCLIA [id number] [place] [address]#### [id number] ####[facility] LABCLIA [id number] [place] [address] [place] ANISOCYTOSIS Present Normal [facility] Comment on above: Order Comment: Speci men Type: BLOOD SPECIMENOrdering Facility: [facility] Address: [address] [place] [address] Performed By: #### 5 7021-8 ####[facility] LABCLIA [id number] [place] [address]#### [id number] ####[facility] LABCLIA [id number] [place] [address] [place] Basophils (Bld) [#/Vol] 0.03 10*3/uL Normal <0.11 [facility] Comment on above: Order Comment: Speci men Type: BLOOD SPECIMENOrdering Facility: [facility] Address: [address] [place] [address] Performed By: #### 5 7021-8 ####[facility] LABCLIA [id number] [place] [address]#### [id number] ####[facility] LABCLIA [id number] [place] [address] [place] Basophils/100 WBC (Bld) 2.0 % Normal [facility] Comment on above: Order Comment: Speci men Type: BLOOD SPECIMENOrdering Facility: [facility] Address: [address] [place], [place] [address] Performed By: #### 5 7021-8 ####[facility] LABCLIA [id number] [place] [address]#### [id number] ####[facility] LABCLIA [id number] [place] [id number] [place] CELLS COUNTED 100 Counted Normal [facility] Comment on above: Order Comment: Speci men Type: BLOOD SPECIMENOrdering Facility: [facility] Address: [address] [place] [address] Performed By: #### 5 7021-8 ####[facility] LABCLIA [id number] [place] [address]#### [id number] ####[facility] LABCLIA [id number] [place] [address] [place] Eosinophils (Bld) [#/Vol] 0.00 10*3/uL Normal <0.46 [facility] Comment on above: Order Comment: Speci men Type: BLOOD SPECIMENOrdering Facility: [facility] Address: [address] [place] [address] Performed By: #### 5 7021-8 ####[facility] LABCLIA [id number] [place] [address]#### [id number] ####[facility] LABCLIA [id number] [place] [address] [place] Eosinophils/100 WBC (Bld) 0.0 % Normal [facility] Comment on above: Order Comment: Speci men Type: BLOOD SPECIMENOrdering Facility: [facility] Address: [address] [place] [address] Performed By: #### 5 7021-8 ####[facility] LABCLIA [id number] [place] [address]#### [id number] ####[facility] LABCLIA [id number] [place] [address] [place] Giant platelets LM Ql (Bld) Occasional Normal [facility] Comment on above: Order Comment: Speci men Type: BLOOD SPECIMENOrdering Facility: [facility] Address: [address] [place] [address] Performed By: #### 5 7021-8 ####[facility] LABCLIA [id number] [place] [address]#### [id number] ####[facility] LABCLIA [id number] [place] [address] [place] Lymphocytes (Bld) [#/Vol] 0.77 10*3/uL Low 1.00-4.00 [facility] Comment on above: Order Comment: Speci men Type: BLOOD SPECIMENOrdering Facility: [facility] Address: [address] [place] [address] Performed By: #### 5 7021-8 ####[facility] LABCLIA [id number] [place] [address]#### [id number] ####[facility] LABCLIA [id number] [place] [address] [place] Lymphocytes/100 WBC (Bld) 45.0 % Normal [facility] Comment on above: Order Comment: Speci men Type: BLOOD SPECIMENOrdering Facility: [facility] Address: [address] [place], [place] [address] Performed By: #### 5 7021-8 ####[facility] LABCLIA [id number] [place] [address]#### [id number] ####[facility] LABCLIA [id number] [place] [address] [place] Monocytes (Bld) [#/Vol] 0.34 10*3/uL Normal <0.87 [facility] Comment on above: Order Comment: Speci men Type: BLOOD SPECIMENOrdering Facility: [facility] Address: [address] [place], [place] [address] Performed By: #### 5 7021-8 ####[facility] LABCLIA [id number] [place] [id number]#### [id number] ####[facility] LABCLIA [id number] [place] [address] [place] Monocytes/100 WBC (Bld) 20.0 % Normal [facility] Comment on above: Order Comment: Speci men Type: BLOOD SPECIMENOrdering Facility: [facility] Address: [address] [place] [address] Performed By: #### 5 7021-8 ####[facility] LABCLIA [id number] [place] [address]#### [id number] ####[facility] LABCLIA [id number] [place] [address] [place] Neutrophils/100 WBC (Bld) 33.0 % Normal [facility] Comment on above: Order Comment: Speci men Type: BLOOD SPECIMENOrdering Facility: [facility] Address: [address] [place] [address] Performed By: #### 5 7021-8 ####[facility] LABCLIA [id number] [place] [address]#### [id number] ####[facility] LABCLIA [id number] [place] [address] [place] Ovalocytes LM Ql (Bld) Few Normal [facility] Comment on above: Order Comment: Speci men Type: BLOOD SPECIMENOrdering Facility: [facility] Address: [address] [place] [address] Performed By: #### 5 7021-8 ####[facility] LABCLIA [id number] [place] [address]#### [id number] ####[facility] LABCLIA [id number] [place] [id number] [place] PLATELET ESTIMATE Decreased Normal [facility] Comment on above: Order Comment: Speci men Type: BLOOD SPECIMENOrdering Facility: [facility] Address: [address] [place] [address] Performed By: #### 5 7021-8 ####[facility] LABCLIA [id number] [place] [address]#### [id number] ####[facility] LABCLIA [id number] [place] [address] [place] Polychromasia LM Ql (Bld) Slight Normal [facility] Comment on above: Order Comment: Speci men Type: BLOOD SPECIMENOrdering Facility: [facility] Address: [address] [place] [address] Performed By: #### 5 7021-8 ####[facility] LABCLIA [id number] [place] [address]#### [id number] ####[facility] LABCLIA [id number] [address] [place] RBC FRAGMENTS Few Abnormal None Seen [facility] Comment on above: Order Comment: Speci men Type: BLOOD SPECIMENOrdering Facility: [facility] Address: [address] [place] [address] Performed By: #### 5 7021-8 ####[facility] LABCLIA [id number] [place] [id number]#### [id number] ####[facility] LABCLIA [id number] [address] [place] RED CELL MORPH Reviewed: see result s of individual morphologies Normal [facility] Comment on above: Order Comment: Speci men Type: BLOOD SPECIMENOrdering Facility: [facility] Address: [address] [place], [place] [address] Performed By: #### 5 7021-8 ####[facility] LABCLIA [id number] [place] [id number]#### [id number] ####[facility] LABCLIA [id number] [place] [address] [place] TYPE AND SCREENon 03-11-2022 TYPE AND SCREEN Negative Normal [facility] Comment on above: Performed By: #### T NS, PRBC #### [facility] [address] [place] [address] Dr. Benito To PRBC LEUKOREDUCEDon 03-05-20 ABO and Rh group Nom (Bld) Cross Match Result Compatible Unit Blood Type A Pos Unit Number [id number] Status Information Transfused Product ID Red Blood Cells Product Code [id number] Cross Match Result Compatible Unit Blood Type A Pos Unit Number [id number] Status Information Transfused Product ID Red Blood Cells Product Code [id number] Normal [facility] Comment on above: Performed By: #### P RBC, TNS #### [facility] [address] [place] [address] Dr. Benito To CBC W Auto Differential pane l (Bld)on 03-04-2022 Anisocytosis Ql (Bld) Present Normal [facility] Comment on above: Order Comment: Speci men Type: BLOOD SPECIMENOrdering Facility: [facility] Address: [address] [place] [address] Performed By: #### 5 7021-8 ####[facility] LABCLIA [id number] [address] LABCLIA [id number] [place] [address] [place] Basophils/100 WBC (Bld) 2.0 % Normal [facility] Comment on above: Order Comment: Speci men Type: BLOOD SPECIMENOrdering Facility: [facility] Address: [address] [place] [address] Performed By: #### 5 7021-8 ####[facility] LABCLIA [id number] [address] LABCLIA [id number] [place] [address] [place] Dacrocytes LM Ql (Bld) Few Normal [facility] Comment on above: Order Comment: Speci men Type: BLOOD SPECIMENOrdering Facility: [facility] Address: [address] [place] [address] Performed By: #### 5 7021-8 ####[facility] LABCLIA [id number] [address] LABCLIA [id number] [place] [address] [place] Differential cell count method Nom (Bld) Manual Normal [facility] Comment on above: Order Comment: Speci men Type: BLOOD SPECIMENOrdering Facility: [facility] Address: [address] [place] [address] Performed By: #### 5 7021-8 ####[facility] LABCLIA [id number] [address] LABCLIA [id number] [place] [address] [place] Eosinophils (Bld) [#/Vol] 0.02 10*3/uL Normal <0.46 [facility] Comment on above: Order Comment: Speci men Type: BLOOD SPECIMENOrdering Facility: [facility] Address: [address] [place], [place] [address] Performed By: #### 5 7021-8 ####[facility] LABCLIA [id number] [address] LABCLIA [id number] [place] [address] [place] Eosinophils/100 WBC (Bld) 1.0 % Normal [facility] Comment on above: Order Comment: Speci men Type: BLOOD SPECIMENOrdering Facility: [facility] Address: [address] [place], [place] [address] Performed By: #### 5 7021-8 ####[facility] LABCLIA [id number] [address] LABCLIA [id number] [place] [address] [place] Erythrocyte distribution width (RBC) [Ratio] 25.2 % High 11.5-15.0 [facility] Comment on above: Order Comment: Speci men Type: BLOOD SPECIMENOrdering Facility: [facility] Address: [address] [place] [address] Performed By: #### 5 7021-8 ####[facility] LABCLIA [id number] [address] LABCLIA [id number] [address] [place] Hematocrit (Bld) [Volume fraction] 24.0 % Low 39.0-51.0 [facility] Comment on above: Order Comment: Speci men Type: BLOOD SPECIMENOrdering Facility: [facility] Address: [address] [place] [address] Performed By: #### 5 7021-8 ####[facility] LABCLIA [id number] [address] LABCLIA [id number] [place] [address] [place] Hemoglobin (Bld) [Mass/Vol] 7.5 g/dL Low 13.0-17.0 [facility] Comment on above: Order Comment: Speci men Type: BLOOD SPECIMENOrdering Facility: [facility] Address: [address] [place], [place] [address] Performed By: #### 5 7021-8 ####[facility] LABCLIA [id number] [address] LABCLIA [id number] [place] [address] [place] Lymphocytes (Bld) [#/Vol] 0.76 10*3/uL Low 1.00-4.00 [facility] Comment on above: Order Comment: Speci men Type: BLOOD SPECIMENOrdering Facility: [facility] Address: [address] [place] [address] Performed By: #### 5 7021-8 ####[facility] LABCLIA [id number] [address] LABCLIA [id number] [place] [address] [place] Lymphocytes/100 WBC (Bld) 38.0 % Normal [facility] Comment on above: Order Comment: Speci men Type: BLOOD SPECIMENOrdering Facility: [facility] Address: [address] [place] [address] Performed By: #### 5 7021-8 ####[facility] LABCLIA [id number] [address] LABCLIA [id number] [place] [address] [place] MCH (RBC) [Entitic mass] 32.3 pg Normal 26.0-34.0 [facility] Comment on above: Order Comment: Speci men Type: BLOOD SPECIMENOrdering Facility: [facility] Address: [address] [place], [place] [address] Performed By: #### 5 7021-8 ####[facility] LABCLIA [id number] [address] LABCLIA [id number] [place] [address] [place] MCHC (RBC) [Mass/Vol] 31.3 g/dL Normal 30.5-36.0 [facility] Comment on above: Order Comment: Speci men Type: BLOOD SPECIMENOrdering Facility: [facility] Address: [address] [place], [place] [address] Performed By: #### 5 7021-8 ####[facility] LABCLIA [id number] [address] LABCLIA [id number] [place] [address] [place] MCV (RBC) [Entitic vol] 103.4 fL High 80.0-100.0 [facility] Comment on above: Order Comment: Speci men Type: BLOOD SPECIMENOrdering Facility: [facility] Address: [address] [place], [place] [address] Performed By: #### 5 7021-8 ####[facility] LABCLIA [id number] [address] LABCLIA [id number] [place] [address] [place] Neutrophils (Bld) [#/Vol] 0.86 10*3/uL Low 1.45-7.50 [facility] Comment on above: Order Comment: Speci men Type: BLOOD SPECIMENOrdering Facility: [facility] Address: [address] [place], [place] [address] Performed By: #### 5 7021-8 ####[facility] LABCLIA [id number] [address] LABCLIA [id number] [place] [address] [place] Neutrophils/100 WBC (Bld) 43.0 % Normal [facility] Comment on above: Order Comment: Speci men Type: BLOOD SPECIMENOrdering Facility: [facility] Address: [address] [place], [place] [address] Performed By: #### 5 7021-8 ####[facility] LABCLIA [id number] [address] LABCLIA [id number] [place] [id number] [place] Nucleated RBC/100 WBC (Bld) [Ratio] 0.0 /100 WBC Normal [facility] Comment on above: Order Comment: Speci men Type: BLOOD SPECIMENOrdering Facility: [facility] Address: [address] [place] [address] Performed By: #### 5 7021-8 ####[facility] LABCLIA [id number] [address] LABCLIA [id number] [place] [address] [place] Ovalocytes LM Ql (Bld) Few Normal [facility] Comment on above: Order Comment: Speci men Type: BLOOD SPECIMENOrdering Facility: [facility] Address: [address] [place] [address] Performed By: #### 5 7021-8 ####[facility] LABCLIA [id number] [address] LABCLIA [id number] [place] [address] [place] [place] PLATELET ESTIMATE Decreased Normal [facility] Comment on above: Order Comment: Speci men Type: BLOOD SPECIMENOrdering Facility: [facility] Address: [address] [place] [address] Performed By: #### 5 7021-8 ####[facility] LABCLIA [id number] [address] LABCLIA [id number] [place] [address] [place] Platelet mean volume (Bld) [Entitic vol] 12.6 fL Normal 9.0-12.7 [facility] Comment on above: Order Comment: Speci men Type: BLOOD SPECIMENOrdering Facility: [facility] Address: [address] [place] [address] Performed By: #### 5 7021-8 ####[facility] LABCLIA [id number] [place] [id number] LABCLIA [id number] [place] [address] [place] Platelets (Bld) [#/Vol] 43 10*3/uL Low 150-400 [facility] Comment on above: Order Comment: Speci men Type: BLOOD SPECIMENOrdering Facility: [facility] Address: [address] [place] [address] Result Comment: [facility] Performed By: #### 5 7021-8 ####[facility] LABCLIA [id number] [address] LABCLIA [id number] [place] [address] [place] Polychromasia LM Ql (Bld) Slight Normal [facility] Comment on above: Order Comment: Speci men Type: BLOOD SPECIMENOrdering Facility: [facility] Address: [address] [place] [address] Performed By: #### 5 7021-8 ####[facility] LABCLIA [id number] [address] LABCLIA [id number] [place] [address] [place] RBC (Bld) [#/Vol] 2.32 10*6/uL Low 4.20-6.00 [facility] Comment on above: Order Comment: Speci men Type: BLOOD SPECIMENOrdering Facility: [facility] Address: [address] [place] [address] Performed By: #### 5 7021-8 ####[facility] LABCLIA [id number] [address] LABCLIA [id number] [place] [address] [place] RBC FRAGMENTS Few Abnormal None Seen [facility] Comment on above: Order Comment: Speci men Type: BLOOD SPECIMENOrdering Facility: [facility] Address: [address] [place] [address] Performed By: #### 5 7021-8 ####[facility] LABCLIA [id number] [address] LABCLIA [id number] [place] [address] [place] RED CELL MORPH Reviewed: see result s of individual morphologies Normal [facility] Comment on above: Order Comment: Speci men Type: BLOOD SPECIMENOrdering Facility: [facility] Address: [address] [place] [address] Performed By: #### 5 7021-8 ####[facility] LABCLIA [id number] [address] LABCLIA [id number] [place] [address] [place] WAM - ABS BASO 0.04 k/uL Normal <0.11 [facility] Comment on above: Order Comment: Speci men Type: BLOOD SPECIMENOrdering Facility: [facility] Address: [address] [place] [address] Performed By: #### 5 7021-8 ####[facility] LABCLIA [id number] [address] LABCLIA [id number] [place] [address] [place] WAM - ABS MONO 0.32 k/uL Normal <0.87 [facility] Comment on above: Order Comment: Speci men Type: BLOOD SPECIMENOrdering Facility: [facility] Address: [address] [place] [address] Performed By: #### 5 7021-8 ####[facility] LABCLIA [id number] [place] [id number] LABCLIA [id number] [place] [address] [place] WAM - MONO% 16.0 % Normal [facility] Comment on above: Order Comment: Speci men Type: BLOOD SPECIMENOrdering Facility: [facility] Address: [address] [place] [address] Performed By: #### 5 7021-8 ####[facility] LABCLIA [id number] [address] LABCLIA [id number] [place] [address] [place] WAM ABSOLUTE NRBC <0.01 Normal <0.01 [facility] Comment on above: Order Comment: Speci men Type: BLOOD SPECIMENOrdering Facility: [facility] Address: [address] [place] [address] Performed By: #### 5 7021-8 ####[facility] LABCLIA [id number] [address] LABCLIA [id number] [place] [address] [place] WBC (Bld) [#/Vol] 2.00 10*3/uL Low 3.70-11.00 [facility] Comment on above: Order Comment: Speci men Type: BLOOD SPECIMENOrdering Facility: [facility] Address: [address] [place], [place] [address] Result Comment: Samp le checked for clot Performed By: #### 5 7021-8 ####[facility] LABCLIA [id number] [address] LABCLIA [id number] [place] [address] [place] Comprehensive metabolic 2000 panelon 03-04-2022 Albumin [Mass/Vol] 3.8 g/dL Low 3.9-4.9 [facility] Comment on above: Order Comment: Speci men Type: BLOOD SPECIMENOrdering Facility: [facility] Address: [address] [place], [place] [address] Performed By: #### 2 4323-8, 2531-0 ####[facility] LABCLIA [id number] [place] [address] ALP [Catalytic activity/Vol] 68 U/L Normal 38-113 [facility] Comment on above: Order Comment: Speci men Type: BLOOD SPECIMENOrdering Facility: [facility] Address: [address] [place], [place] [address] Performed By: #### 2 4323-8, 2531-0 ####[facility] LABCLIA [id number] [place] [address] ALT [Catalytic activity/Vol] 21 U/L Normal 10-54 [facility] Comment on above: Order Comment: Speci men Type: BLOOD SPECIMENOrdering Facility: [facility] Address: [address] [place], [place] [address] Performed By: #### 2 4323-8, 2531-0 ####[facility] LABCLIA [id number] [place] [address] Anion gap [Moles/Vol] 10 mmol/L Normal 9-18 [facility] Comment on above: Order Comment: Speci men Type: BLOOD SPECIMENOrdering Facility: [facility] Address: [address] [place], [place] [address] Performed By: #### 2 4323-8, 253-0 ####[facility] LABCLIA [id number] [place] [address] AST [Catalytic activity/Vol] 11 U/L Low 14-40 [facility] Comment on above: Order Comment: Speci men Type: BLOOD SPECIMENOrdering Facility: [facility] Address: [address] [place], [place] [address] Performed By: #### 2 4323-8, 253-0 ####[facility] LABCLIA [id number] [place] [address] Bilirubin [Mass/Vol] 0.8 mg/dL Normal 0.2-1.3 [facility] Comment on above: Order Comment: Speci men Type: BLOOD SPECIMENOrdering Facility: [facility] Address: [address] [place] [address] Performed By: #### 2 432-8, 2531-0 ####[facility] LABCLIA [id number] [place] [address] Calcium [Mass/Vol] 8.8 mg/dL Normal 8.5-10.2 [facility] Comment on above: Order Comment: Speci men Type: BLOOD SPECIMENOrdering Facility: [facility] Address: [address] [place] [address] Performed By: #### 2 4328, 2531-0 ####[facility] LABCLIA [id number] [place] [address] Chloride [Moles/Vol] 106 mmol/L High 97-105 [facility] Comment on above: Order Comment: Speci men Type: BLOOD SPECIMENOrdering Facility: [facility] Address: [address] [place] [address] Performed By: #### 2 4328, 2531-0 ####[facility] LABCLIA [id number] [place] [address] CO2 [Moles/Vol] 27 mmol/L Normal 22-30 [facility] Comment on above: Order Comment: Speci men Type: BLOOD SPECIMENOrdering Facility: [facility] Address: [address] [place] [address] Performed By: #### 2 43238, 2531-0 ####[facility] LABCLIA [id number] [place] [address] Creatinine [Mass/Vol] 1.73 mg/dL High 0.73-1.22 [facility] Comment on above: Order Comment: Davi avendaño Type: BLOOD SPECIMENOrdering Facility: [facility] Address: [address] [place] [address] Performed By: #### 2 4323-8, 2532-0 ####[facility] LABCLIA [id number] [place] [address] ESTIMATED GLOMERULAR FILTRATION RATE 39 mL/min/1.73m??? Low >=60 [facility] Comment on above: Order Comment: Davi avendaño Type: BLOOD SPECIMENOrdering Facility: [facility] Address: [address] [place] [place] [id number] Result Comment: Faye mated Glomerular Filtration Rate [...] GFR. Performed By: #### 2 4323-8, 2532-0 ####[facility] LABCLIA [id number] [place] [address] Glucose [Mass/Vol] 154 mg/dL High 74-99 [facility] Comment on above: Order Comment: Davi avendaño Type: BLOOD SPECIMENOrdering Facility: [facility] Address: [address] [place] [phone] Result Comment: The [place] [employer] (ADA) provides guidance for cutoff [...] Standards of Medical Care in Diabetes 2016, [place] [employer]. Diabetes Care. 2016.39(Suppl 1). Performed By: #### 2 4323-8, 2531-0 ####[facility] LABIA [id number] [place] [address] Potassium [Moles/Vol] 4.2 mmol/L Normal 3.7-5.1 [facility] Comment on above: Order Comment: Speci men Type: BLOOD SPECIMENOrdering Facility: [facility] Address: [address] [place], [place] [address] Performed By: #### 2 4328, 2531-0 ####[facility] LABIA [id number] [place] [address] Protein [Mass/Vol] 5.8 g/dL Low 6.3-8.0 [facility] Comment on above: Order Comment: Speci men Type: BLOOD SPECIMENOrdering Facility: [facility] Address: [address] [place] [address] Performed By: #### 2 4328, 2531-0 ####[facility] LABIA [id number] [place] [address] Sodium [Moles/Vol] 143 mmol/L Normal 136-144 [facility] Comment on above: Order Comment: Speci men Type: BLOOD SPECIMENOrdering Facility: [facility] Address: [address] Performed By: #### 2 4328, 2531-0 ####[facility] LABIA [id number] [place] [address] Urea nitrogen [Mass/Vol] 23 mg/dL Normal 9-24 [facility] Comment on above: Order Comment: Speci men Type: BLOOD SPECIMENOrdering Facility: [facility] Address: [address] Performed By: #### 2 4328, 2531-0 ####[facility] LABCLIA [id number] [place] [address] LDH SerPl-cCncon 03-04-2022 LDH [Catalytic activity/Vol] 216 U/L Normal 135-225 [facility] Comment on above: Order Comment: Speci men Type: BLOOD SPECIMENOrdering Facility: [facility] Address: [address] [place] [address] Result Comment: Hemo lysis present. The origin [...] indicated. Performed By: #### 2 4323-8, 2532-0 ####[facility] LABIA [id number] [place] [address] CBC W Auto Differential pane l (Bld)on 02-28-2022 Basophils (Bld) [#/Vol] 10*3/uL Normal <0.11 [facility] Comment on above: Order Comment: Speci men Type: BLOOD SPECIMENOrdering Facility: [facility] Address: [address] [place] [address] Performed By: #### 5 7021-8 ####[facility] LABIA [id number] [place] [address] Basophils/100 WBC (Bld) 0.4 % Normal [facility] Comment on above: Order Comment: Speci men Type: BLOOD SPECIMENOrdering Facility: [facility] Address: [address] [place] [address] Performed By: #### 5 7021-8 ####[facility] LABIA [id number] [place] [address] Differential cell count method Nom (Bld) Auto Normal [facility] Comment on above: Order Comment: Speci men Type: BLOOD SPECIMENOrdering Facility: [facility] Address: [address] [place] [address] Performed By: #### 5 7021-8 ####[facility] LABCLIA [id number] [place] [address] Eosinophils (Bld) [#/Vol] 10*3/uL Normal <0.46 [facility] Comment on above: Order Comment: Speci men Type: BLOOD SPECIMENOrdering Facility: [facility] Address: [address] [place] [address] Performed By: #### 5 7021-8 ####[facility] LABCLIA [id number] [place] [address] Eosinophils/100 WBC (Bld) 0.0 % Normal [facility] Comment on above: Order Comment: Speci men Type: BLOOD SPECIMENOrdering Facility: [facility] Address: [address] [place] [address] Performed By: #### 5 7021-8 ####[facility] LABCLIA [id number] [place] [address] Erythrocyte distribution width (RBC) [Ratio] 24.4 % High 11.5-15.0 [facility] Comment on above: Order Comment: Speci men Type: BLOOD SPECIMENOrdering Facility: [facility] Address: [address] [place] [address] Performed By: #### 5 7021-8 ####[facility] LABCLIA [id number] [place] [address] Hematocrit (Bld) [Volume fraction] 20.6 % Low 39.0-51.0 [facility] Comment on above: Order Comment: Speci men Type: BLOOD SPECIMENOrdering Facility: [facility] Address: [address] [place] [address] Performed By: #### 5 7021-8 ####[facility] LABCLIA [id number] [place] [address] Hemoglobin (Bld) [Mass/Vol] 6.6 g/dL Low 13.0-17.0 [facility] Comment on above: Order Comment: Speci men Type: BLOOD SPECIMENOrdering Facility: [facility] Address: [address] [place] [address] Performed By: #### 5 7021-8 ####[facility] LABCLIA [id number] [place] [address] IMMATURE GRAN % 1.3 % Normal [facility] Comment on above: Order Comment: Speci men Type: BLOOD SPECIMENOrdering Facility: [facility] Address: [address] [place] [address] Performed By: #### 5 7021-8 ####[facility] LABCLIA [id number] [place] [address] IMMATURE GRAN ABS 0.03 k/uL Normal <0.10 [facility] Comment on above: Order Comment: Speci men Type: BLOOD SPECIMENOrdering Facility: [facility] Address: [address] [place] [address] Performed By: #### 5 7021-8 ####[facility] LABCLIA [id number] [place] [address] Lymphocytes (Bld) [#/Vol] 0.73 10*3/uL Low 1.00-4.00 [facility] Comment on above: Order Comment: Speci men Type: BLOOD SPECIMENOrdering Facility: [facility] Address: [address] [place] [address] Performed By: #### 5 7021-8 ####[facility] LABCLIA [id number] [place] [address] Lymphocytes/100 WBC (Bld) 32.4 % Normal [facility] Comment on above: Order Comment: Speci men Type: BLOOD SPECIMENOrdering Facility: [facility] Address: [address] [place] [address] Performed By: #### 5 7021-8 ####[facility] LABCLIA [id number] [place] [address] MCH (RBC) [Entitic mass] 34.9 pg High 26.0-34.0 [facility] Comment on above: Order Comment: Speci men Type: BLOOD SPECIMENOrdering Facility: [facility] Address: [address] [place] [address] Performed By: #### 5 7021-8 ####[facility] LABCLIA [id number] [place] [address] MCHC (RBC) [Mass/Vol] 32.0 g/dL Normal 30.5-36.0 [facility] Comment on above: Order Comment: Speci men Type: BLOOD SPECIMENOrdering Facility: [facility] Address: [address] [place] [address] Performed By: #### 5 7021-8 ####[facility] LABCLIA [id number] [place] [address] MCV (RBC) [Entitic vol] 109.0 fL High 80.0-100.0 [facility] Comment on above: Order Comment: Speci men Type: BLOOD SPECIMENOrdering Facility: [facility] Address: [address] [place] [address] Performed By: #### 5 7021-8 ####[facility] LABCLIA [id number] [place] [address] Monocytes (Bld) [#/Vol] 0.35 10*3/uL Normal <0.87 [facility] Comment on above: Order Comment: Speci men Type: BLOOD SPECIMENOrdering Facility: [facility] Address: [address] [place] [address] Performed By: #### 5 7021-8 ####[facility] LABCLIA [id number] [place] [address] Monocytes/100 WBC (Bld) 15.6 % Normal [facility] Comment on above: Order Comment: Speci men Type: BLOOD SPECIMENOrdering Facility: [facility] Address: [address] [place] [address] Performed By: #### 5 7021-8 ####[facility] LABCLIA [id number] [place] [address] Neutrophils (Bld) [#/Vol] 1.13 10*3/uL Low 1.45-7.50 [facility] Comment on above: Order Comment: Speci men Type: BLOOD SPECIMENOrdering Facility: [facility] Address: [address] [place] [address] Performed By: #### 5 7021-8 ####[facility] LABCLIA [id number] [place] [address] Neutrophils/100 WBC (Bld) 50.3 % Normal [facility] Comment on above: Order Comment: Speci men Type: BLOOD SPECIMENOrdering Facility: [facility] Address: [address] [place] [address] Performed By: #### 5 7021-8 ####[facility] LABCLIA [id number] [place] [address] Nucleated RBC (Bld) [#/Vol] 10*3/uL Normal <0.01 [facility] Comment on above: Order Comment: Speci men Type: BLOOD SPECIMENOrdering Facility: [facility] Address: [address] [place], [place] [address] Performed By: #### 5 7021-8 ####[facility] LABCLIA [id number] [place] [address] Nucleated RBC/100 WBC (Bld) [Ratio] 0.0 /100 WBC Normal [facility] Comment on above: Order Comment: Speci men Type: BLOOD SPECIMENOrdering Facility: [facility] Address: [address] [place] [address] Performed By: #### 5 7021-8 ####[facility] LABCLIA [id number] [place] [address] Platelet mean volume (Bld) [Entitic vol] 14.1 fL High 9.0-12.7 [facility] Comment on above: Order Comment: Speci men Type: BLOOD SPECIMENOrdering Facility: [facility] Address: [address] [place] [address] Performed By: #### 5 7021-8 ####[facility] LABCLIA [id number] [place] [address] Platelets (Bld) [#/Vol] 44 10*3/uL Low 150-400 [facility] Comment on above: Order Comment: Speci men Type: BLOOD SPECIMENOrdering Facility: [facility] Address: [address] [place] [address] Result Comment: Samp le checked for clot Performed By: #### 5 7021-8 ####[facility] LABIA [id number] [place] [address] RBC (Bld) [#/Vol] 1.89 10*6/uL Low 4.20-6.00 [facility] Comment on above: Order Comment: Speci men Type: BLOOD SPECIMENOrdering Facility: [facility] Address: [address] [place] [address] Performed By: #### 5 7021-8 ####[facility] LABIA [id number] [place] [address] WBC (Bld) [#/Vol] 2.25 10*3/uL Low 3.70-11.00 [facility] Comment on above: Order Comment: Speci men Type: BLOOD SPECIMENOrdering Facility: [facility] Address: [address] [place] [address] Performed By: #### 5 7021-8 ####[facility] LABIA [id number] [place] [address] CNPNon 02-28-2022 CNPN Normal [facility] Comprehensive metabolic 2000 panelon 02-28-2022 Albumin [Mass/Vol] 3.9 g/dL Normal 3.9-4.9 [facility] Comment on above: Order Comment: Speci men Type: BLOOD SPECIMENOrdering Facility: [facility] Address: [address] [place] [address] Performed By: #### 2 532-0, 70961-6 ####[facility] LABCLIA [id number] [place] [address] ALP [Catalytic activity/Vol] 67 U/L Normal 38-113 [facility] Comment on above: Order Comment: Speci men Type: BLOOD SPECIMENOrdering Facility: [facility] Address: [address] [place] [address] Performed By: #### 2 532-0, 16565-1 ####[facility] LABCLIA [id number] [place] [address] ALT [Catalytic activity/Vol] 28 U/L Normal 10-54 [facility] Comment on above: Order Comment: Speci men Type: BLOOD SPECIMENOrdering Facility: [facility] Address: [address] [place] [address] Performed By: #### 2 532-0, 85182-0 ####[facility] LABCLIA [id number] [place] [address] Anion gap [Moles/Vol] 10 mmol/L Normal 9-18 [facility] Comment on above: Order Comment: Speci men Type: BLOOD SPECIMENOrdering Facility: [facility] Address: [address] [place] [address] Performed By: #### 2 532-0, 76717-8 ####[facility] LABCLIA [id number] [place] [address] AST [Catalytic activity/Vol] 11 U/L Low 14-40 [facility] Comment on above: Order Comment: Speci men Type: BLOOD SPECIMENOrdering Facility: [facility] Address: [address] [place], [place] [address] Performed By: #### 2 532-0, 78115-2 ####[facility] LABCLIA [id number] [place] [address] Bilirubin [Mass/Vol] 0.8 mg/dL Normal 0.2-1.3 [facility] Comment on above: Order Comment: Speci men Type: BLOOD SPECIMENOrdering Facility: [facility] Address: [address] [place] [address] Performed By: #### 2 532-0, 88628-3 ####[facility] LABCLIA [id number] [place] [address] Calcium [Mass/Vol] 8.6 mg/dL Normal 8.5-10.2 [facility] Comment on above: Order Comment: Speci men Type: BLOOD SPECIMENOrdering Facility: [facility] Address: [address] [place] [address] Performed By: #### 2 532-0, 65154-8 ####[facility] LABCLIA [id number] [place] [address] Chloride [Moles/Vol] 106 mmol/L High 97-105 [facility] Comment on above: Order Comment: Speci men Type: BLOOD SPECIMENOrdering Facility: [facility] Address: [address] [place], [place] [id number] Performed By: #### 2 532-0, 12802-7 ####[facility] LABCLIA [id number] [place] [address] CO2 [Moles/Vol] 27 mmol/L Normal 22-30 [facility] Comment on above: Order Comment: Speci men Type: BLOOD SPECIMENOrdering Facility: [facility] Address: [address] [place], [place] [id number] Performed By: #### 2 532-0, 17230-7 ####[facility] LABCLIA [id number] [place] [address] Creatinine [Mass/Vol] 1.94 mg/dL High 0.73-1.22 [facility] Comment on above: Order Comment: Davi avendaño Type: BLOOD SPECIMENOrdering Facility: [facility] Address: [address] [place] [address] Performed By: #### 2 532-0, 84795-4 ####[facility] LABCLIA [id number] [place] [address] ESTIMATED GLOMERULAR FILTRATION RATE 34 mL/min/1.73m??? Low >=60 [facility] Comment on above: Order Comment: Davi avendaño Type: BLOOD SPECIMENOrdering Facility: [facility] Address: [address] [place] [address] Result Comment: Faye mated Glomerular Filtration Rate [...] actual GFR. Performed By: #### 2 532-0, 56738-9 ####[facility] LABCLIA [id number] [place] [address] Glucose [Mass/Vol] 154 mg/dL High 74-99 [facility] Comment on above: Order Comment: Davi avendaño Type: BLOOD SPECIMENOrdering Facility: [facility] Address: [address] [place] [address] Result Comment: The [place] [employer] Association (ADA) provides guidance for cutoff [...] Standards of Medical Care in Diabetes 2016, [place] [employer]. Diabetes Care. 2016.39(Suppl 1). Performed By: #### 2 532-0, ####[facility] LABCLIA [id number] [place] [address] Potassium [Moles/Vol] 4.1 mmol/L Normal 3.7-5.1 [facility] Comment on above: Order Comment: Speci men Type: BLOOD SPECIMENOrdering Facility: [facility] Address: [address] [place] [address] Performed By: #### 2 532-0, ####[facility] LABIA [id number] [place] [address] Protein [Mass/Vol] 5.8 g/dL Low 6.3-8.0 [facility] Comment on above: Order Comment: Speci men Type: BLOOD SPECIMENOrdering Facility: [facility] Address: [address] [place] [address] Performed By: #### 2 532-0, ####[facility] LABCLIA [id number] [place] [address] Sodium [Moles/Vol] 143 mmol/L Normal 136-144 [facility] Comment on above: Order Comment: Speci men Type: BLOOD SPECIMENOrdering Facility: [facility] Address: [address] Performed By: #### 2 532-0, 99075-3 ####[facility] LABIA [id number] [place] [address] Urea nitrogen [Mass/Vol] 26 mg/dL High 9-24 [facility] Comment on above: Order Comment: Speci men Type: BLOOD SPECIMENOrdering Facility: [facility] Address: [address] Performed By: #### 2 532-0, 38088-3 ####[facility] LABCLIA [id number] [place] [id number] HEMOGLOBIN AND HEMATOCRITon 02-28-2022 Hematocrit (Bld) [Volume fraction] 20.3 % Critically low 42.0-54.0 [facility] Comment on above: Performed By: #### H H #### [facility] [address] [place] [address] Dr. Benito To Hemoglobin (Bld) [Mass/Vol] 6.7 g/dL Critically low 14.0-18.0 [facility] Comment on above: Performed By: #### H H #### [facility] [address] [place] [address] Dr. Benito To LDH SerPl-cCncon 02-28-2022 LDH [Catalytic activity/Vol] 207 U/L Normal 135-225 [facility] Comment on above: Order Comment: Speci men Type: BLOOD SPECIMENOrdering Facility: [facility] Address: [address] [place] [address] Performed By: #### 2 532-0, 22707-7 ####[facility] LABCLIA [id number] [place] [address] TYPE AND SCREENon 02-28-2022 TYPE AND SCREEN Negative Normal [facility] Comment on above: Performed By: #### P RBC, TNS #### [facility] [address] [place] [address] Dr. Benito To CBC W Auto Differential pane l (Bld)on 02-25-2022 Basophils (Bld) [#/Vol] 10*3/uL Normal <0.11 [facility] Comment on above: Order Comment: Speci men Type: BLOOD SPECIMENOrdering Facility: [facility] Address: [address] [place] [address] Performed By: #### 5 7021-8 ####[facility] LABCLIA [id number] [place] [address] Basophils/100 WBC (Bld) 0.3 % Normal [facility] Comment on above: Order Comment: Speci men Type: BLOOD SPECIMENOrdering Facility: [facility] Address: [address] [place] [address] Performed By: #### 5 7021-8 ####[facility] LABCLIA [id number] [place] [address] Differential cell count method Nom (Bld) Auto Normal [facility] Comment on above: Order Comment: Speci men Type: BLOOD SPECIMENOrdering Facility: [facility] Address: [address] [place] [address] Performed By: #### 5 7021-8 ####[facility] LABCLIA [id number] [place] [address] Eosinophils (Bld) [#/Vol] 10*3/uL Normal <0.46 [facility] Comment on above: Order Comment: Speci men Type: BLOOD SPECIMENOrdering Facility: [facility] Address: [address] [place] [address] Performed By: #### 5 7021-8 ####[facility] LABCLIA [id number] [place] [address] Eosinophils/100 WBC (Bld) 0.3 % Normal [facility] Comment on above: Order Comment: Speci men Type: BLOOD SPECIMENOrdering Facility: [facility] Address: [address] [place], [place] [address] Performed By: #### 5 7021-8 ####[facility] LABCLIA [id number] [place] [address] Erythrocyte distribution width (RBC) [Ratio] 24.2 % High 11.5-15.0 [facility] Comment on above: Order Comment: Speci men Type: BLOOD SPECIMENOrdering Facility: [facility] Address: [address] [place] [address] Performed By: #### 5 7021-8 ####[facility] LABCLIA [id number] [place] [address] Hematocrit (Bld) [Volume fraction] 22.8 % Low 39.0-51.0 [facility] Comment on above: Order Comment: Speci men Type: BLOOD SPECIMENOrdering Facility: [facility] Address: [address] [place] [address] Performed By: #### 5 7021-8 ####[facility] LABCLIA [id number] [place] [address] Hemoglobin (Bld) [Mass/Vol] 7.1 g/dL Low 13.0-17.0 [facility] Comment on above: Order Comment: Speci men Type: BLOOD SPECIMENOrdering Facility: [facility] Address: [address] [place] [address] Performed By: #### 5 7021-8 ####[facility] LABIA [id number] [place] [address] IMMATURE GRAN % 1.6 % Normal [facility] Comment on above: Order Comment: Speci men Type: BLOOD SPECIMENOrdering Facility: [facility] Address: [address] [place] [address] Performed By: #### 5 7021-8 ####[facility] LABIA [id number] [place] [address] IMMATURE GRAN ABS 0.05 k/uL Normal <0.10 [facility] Comment on above: Order Comment: Speci men Type: BLOOD SPECIMENOrdering Facility: [facility] Address: [address] [place] [address] Performed By: #### 5 7021-8 ####[facility] LABIA [id number] [place] [address] Lymphocytes (Bld) [#/Vol] 1.00 10*3/uL Normal 1.00-4.00 [facility] Comment on above: Order Comment: Speci men Type: BLOOD SPECIMENOrdering Facility: [facility] Address: [address] [place] [address] Performed By: #### 5 7021-8 ####[facility] LABCLIA [id number] [place] [address] Lymphocytes/100 WBC (Bld) 32.8 % Normal [facility] Comment on above: Order Comment: Speci men Type: BLOOD SPECIMENOrdering Facility: [facility] Address: [address] [place] [address] Performed By: #### 5 7021-8 ####[facility] LABCLIA [id number] [place] [address] MCH (RBC) [Entitic mass] 33.5 pg Normal 26.0-34.0 [facility] Comment on above: Order Comment: Speci men Type: BLOOD SPECIMENOrdering Facility: [facility] Address: [address] [place] [address] Performed By: #### 5 7021-8 ####[facility] LABCLIA [id number] [place] [address] MCHC (RBC) [Mass/Vol] 31.1 g/dL Normal 30.5-36.0 [facility] Comment on above: Order Comment: Speci men Type: BLOOD SPECIMENOrdering Facility: [facility] Address: [address] [place] [address] Performed By: #### 5 7021-8 ####[facility] LABCLIA [id number] [place] [address] MCV (RBC) [Entitic vol] 107.5 fL High 80.0-100.0 [facility] Comment on above: Order Comment: Speci men Type: BLOOD SPECIMENOrdering Facility: [facility] Address: [address] [place] [address] Performed By: #### 5 7021-8 ####[facility] LABCLIA [id number] [place] [address] Monocytes (Bld) [#/Vol] 0.47 10*3/uL Normal <0.87 [facility] Comment on above: Order Comment: Speci men Type: BLOOD SPECIMENOrdering Facility: [facility] Address: [address] [place] [address] Performed By: #### 5 7021-8 ####[facility] LABCLIA [id number] [place] [address] Monocytes/100 WBC (Bld) 15.4 % Normal [facility] Comment on above: Order Comment: Speci men Type: BLOOD SPECIMENOrdering Facility: [facility] Address: [address] [place] [address] Performed By: #### 5 7021-8 ####[facility] LABIA [id number] [place] [address] Neutrophils (Bld) [#/Vol] 1.51 10*3/uL Normal 1.45-7.50 [facility] Comment on above: Order Comment: Speci men Type: BLOOD SPECIMENOrdering Facility: [facility] Address: [address] [place] [address] Performed By: #### 5 7021-8 ####[facility] LABIA [id number] [place] [address] Neutrophils/100 WBC (Bld) 49.6 % Normal [facility] Comment on above: Order Comment: Speci men Type: BLOOD SPECIMENOrdering Facility: [facility] Address: [address] [place] [address] Performed By: #### 5 7021-8 ####[facility] LABIA [id number] [place] [address] Nucleated RBC (Bld) [#/Vol] 10*3/uL Normal <0.01 [facility] Comment on above: Order Comment: Speci men Type: BLOOD SPECIMENOrdering Facility: [facility] Address: [address] [place] [address] Performed By: #### 5 7021-8 ####[facility] LABCLIA [id number] [place] [address] Nucleated RBC/100 WBC (Bld) [Ratio] 0.0 /100 WBC Normal [facility] Comment on above: Order Comment: Speci men Type: BLOOD SPECIMENOrdering Facility: [facility] Address: [address] [place] [address] Performed By: #### 5 7021-8 ####[facility] LABCLIA [id number] [place] [address] Platelet mean volume (Bld) [Entitic vol] 14.2 fL High 9.0-12.7 [facility] Comment on above: Order Comment: Speci men Type: BLOOD SPECIMENOrdering Facility: [facility] Address: [address] [place] [address] Performed By: #### 5 7021-8 ####[facility] LABCLIA [id number] [place] [address] Platelets (Bld) [#/Vol] 64 10*3/uL Low 150-400 [facility] Comment on above: Order Comment: Speci men Type: BLOOD SPECIMENOrdering Facility: [facility] Address: [address] [place] [address] Result Comment: [facility] le checked for clot Performed By: #### 5 7021-8 ####[facility] LABCLIA [id number] [place] [address] RBC (Bld) [#/Vol] 2.12 10*6/uL Low 4.20-6.00 [facility] Comment on above: Order Comment: Speci men Type: BLOOD SPECIMENOrdering Facility: [facility] Address: [address] [place] [address] Performed By: #### 5 7021-8 ####[facility] LABCLIA [id number] [place] [address] WBC (Bld) [#/Vol] 3.05 10*3/uL Low 3.70-11.00 [facility] Comment on above: Order Comment: Speci men Type: BLOOD SPECIMENOrdering Facility: [facility] Address: [address] [place] [address] Performed By: #### 5 7021-8 ####[facility] LABCLIA [id number] [place] [address] Comprehensive metabolic 2000 panelon 02-25-2022 Albumin [Mass/Vol] 3.8 g/dL Low 3.9-4.9 [facility] Comment on above: Order Comment: Speci men Type: BLOOD SPECIMENOrdering Facility: [facility] Address: [address] [place] [address] Performed By: #### 2 532-0, 91393-9 ####[facility] LABCLIA [id number] [place] [address] ALP [Catalytic activity/Vol] 69 U/L Normal 38-113 [facility] Comment on above: Order Comment: Speci men Type: BLOOD SPECIMENOrdering Facility: [facility] Address: [address] [place] [address] Performed By: #### 2 532-0, 34185-4 ####[facility] LABCLIA [id number] [place] [address] ALT [Catalytic activity/Vol] 33 U/L Normal 10-54 [facility] Comment on above: Order Comment: Speci men Type: BLOOD SPECIMENOrdering Facility: [facility] Address: [address] [place] [address] Performed By: #### 2 532-0, 60780-2 ####[facility] LABCLIA [id number] [place] [address] Anion gap [Moles/Vol] 9 mmol/L Normal 9-18 [facility] Comment on above: Order Comment: Speci men Type: BLOOD SPECIMENOrdering Facility: [facility] Address: [address] [place], [place] [address] Performed By: #### 2 532-0, ####[facility] LABCLIA [id number] [place] [address] AST [Catalytic activity/Vol] 14 U/L Normal 14-40 [facility] Comment on above: Order Comment: Speci men Type: BLOOD SPECIMENOrdering Facility: [facility] Address: [address] [place], [place] [address] Performed By: #### 2 532-0, ####[facility] LABCLIA [id number] [place] [address] Bilirubin [Mass/Vol] 0.6 mg/dL Normal 0.2-1.3 [facility] Comment on above: Order Comment: Speci men Type: BLOOD SPECIMENOrdering Facility: [facility] Address: [address] [place], [place] [address] Performed By: #### 2 532-0, ####[facility] LABIA [id number] [place] [address] Calcium [Mass/Vol] 8.8 mg/dL Normal 8.5-10.2 [facility] Comment on above: Order Comment: Speci men Type: BLOOD SPECIMENOrdering Facility: [facility] Address: [address] [place], [place] [address] Performed By: #### 2 532-0, 74035-8 ####[facility] LABIA [id number] [place] [address] Chloride [Moles/Vol] 105 mmol/L Normal 97-105 [facility] Comment on above: Order Comment: Speci men Type: BLOOD SPECIMENOrdering Facility: [facility] Address: [address] [place], [place] [address] Performed By: #### 2 532-0, 27662-9 ####[facility] LABCLIA [id number] [place] [address] CO2 [Moles/Vol] 29 mmol/L Normal 22-30 [facility] Comment on above: Order Comment: Speci men Type: BLOOD SPECIMENOrdering Facility: [facility] Address: [address] [place] [address] Performed By: #### 2 532-0, 29381-0 ####[facility] LABCLIA [id number] [place] [address] Creatinine [Mass/Vol] 1.90 mg/dL High 0.73-1.22 [facility] Comment on above: Order Comment: Speci men Type: BLOOD SPECIMENOrdering Facility: [facility] Address: [address] [place] [address] Performed By: #### 2 532-0, 08759-4 ####[facility] LABCLIA [id number] [place] [address] ESTIMATED GLOMERULAR FILTRATION RATE 35 mL/min/1.73m??? Low >=60 [facility] Comment on above: Order Comment: Speci men Type: BLOOD SPECIMENOrdering Facility: [facility] Address: [address] [place] [address] Result Comment: Faye mated Glomerular Filtration Rate [...] actual GFR. Performed By: #### 2 532-0, 38558-3 ####[facility] LABCLIA [id number] [place] [address] Glucose [Mass/Vol] 145 mg/dL High 74-99 [facility] Comment on above: Order Comment: Speci men Type: BLOOD SPECIMENOrdering Facility: [facility] Address: [address] [id number] Result Comment: The [place] [employer] (ADA) provides guidance for cutoff [...] Standards of Medical Care in Diabetes 2016, [place] [employer]. Diabetes Care. 2016.39(Suppl 1). Performed By: #### 2 532-0, 01815-8 ####[facility] LABCLIA [id number] [place] [address] Potassium [Moles/Vol] 4.2 mmol/L Normal 3.7-5.1 [facility] Comment on above: Order Comment: Speci men Type: BLOOD SPECIMENOrdering Facility: [facility] Address: [address] [place], [place] [address] Performed By: #### 2 532-0, 02601-3 ####[facility] LABCLIA [id number] [place] [address] Protein [Mass/Vol] 6.1 g/dL Low 6.3-8.0 [facility] Comment on above: Order Comment: Speci men Type: BLOOD SPECIMENOrdering Facility: [facility] Address: [address] [id number] Performed By: #### 2 532-0, 83328-4 ####[facility] LABCLIA [id number] [place] [address] Sodium [Moles/Vol] 143 mmol/L Normal 136-144 [facility] Comment on above: Order Comment: Speci men Type: BLOOD SPECIMENOrdering Facility: [facility] Address: [address] [place], [place] [address] Performed By: #### 2 532-0, 95659-7 ####[facility] LABCLIA [id number] [place] [address] Urea nitrogen [Mass/Vol] 29 mg/dL High 9-24 [facility] Comment on above: Order Comment: Speci men Type: BLOOD SPECIMENOrdering Facility: [facility] Address: [address] [place] [address] Performed By: #### 2 532-0, 19560-6 ####[facility] LABIA [id number] [place] [address] LDH SerPl-cCncon 02-25-2022 LDH [Catalytic activity/Vol] 227 U/L High 135-225 [facility] Comment on above: Order Comment: Speci men Type: BLOOD SPECIMENOrdering Facility: [facility] Address: [address] [place] [address] Performed By: #### 2 532-0, 33397-3 ####[facility] LABIA [id number] [place] [address] CBC W Auto Differential pane l (Bld)on 02-18-2022 Anisocytosis Ql (Bld) Present Normal [facility] Comment on above: Order Comment: Speci men Type: BLOOD SPECIMENOrdering Facility: [facility] Address: [address] [place] [address] Performed By: #### 5 7021-8 ####[facility] LABCLIA [id number] [address] LABCLIA [id number] [place] [address] Basophils/100 WBC (Bld) 1.0 % Normal [facility] Comment on above: Order Comment: Speci men Type: BLOOD SPECIMENOrdering Facility: [facility] Address: [address] [place], [place] [address] Performed By: #### 5 7021-8 ####[facility] LABCLIA [id number] [address] LABCLIA [id number] [place] [address] Eosinophils (Bld) [#/Vol] 0.00 10*3/uL Normal <0.46 [facility] Comment on above: Order Comment: Speci men Type: BLOOD SPECIMENOrdering Facility: [facility] Address: [address] [place], [place] [address] Performed By: #### 5 7021-8 ####[facility] LABCLIA [id number] [address] LABCLIA [id number] [place] [address] Eosinophils/100 WBC (Bld) 0.0 % Normal [facility] Comment on above: Order Comment: Speci men Type: BLOOD SPECIMENOrdering Facility: [facility] Address: [address] [place] [address] Performed By: #### 5 7021-8 ####[facility] LABCLIA [id number] [address] LABCLIA [id number] [place] [address] Erythrocyte distribution width (RBC) [Ratio] 23.9 % High 11.5-15.0 [facility] Comment on above: Order Comment: Speci men Type: BLOOD SPECIMENOrdering Facility: [facility] Address: [address] [place] [address] Performed By: #### 5 7021-8 ####[facility] LABCLIA [id number] [address] LABCLIA [id number] [place] [address] Giant platelets LM Ql (Bld) Occasional Normal [facility] Comment on above: Order Comment: Speci men Type: BLOOD SPECIMENOrdering Facility: [facility] Address: [address] [place] [address] Performed By: #### 5 7021-8 ####[facility] LABCLIA [id number] [address] LABCLIA [id number] [place] [address] Hematocrit (Bld) [Volume fraction] 25.8 % Low 39.0-51.0 [facility] Comment on above: Order Comment: Speci men Type: BLOOD SPECIMENOrdering Facility: [facility] Address: [address] [place] [address] Performed By: #### 5 7021-8 ####[facility] LABCLIA [id number] [address] LABCLIA [id number] [place] [address] Hemoglobin (Bld) [Mass/Vol] 8.4 g/dL Low 13.0-17.0 [facility] Comment on above: Order Comment: Speci men Type: BLOOD SPECIMENOrdering Facility: [facility] Address: [address] [place], [place] [address] Performed By: #### 5 7021-8 ####[facility] LABCLIA [id number] [address] LABIA [id number] [place] [address] Lymphocytes (Bld) [#/Vol] 0.89 10*3/uL Low 1.00-4.00 [facility] Comment on above: Order Comment: Speci men Type: BLOOD SPECIMENOrdering Facility: [facility] Address: [address] [place] [address] Performed By: #### 5 7021-8 ####[facility] LABCLIA [id number] [address] LABCLIA [id number] [place] [address] Lymphocytes/100 WBC (Bld) 23.0 % Normal [facility] Comment on above: Order Comment: Speci men Type: BLOOD SPECIMENOrdering Facility: [facility] Address: [address] [place], [place] [address] Performed By: #### 5 7021-8 ####[facility] LABCLIA [id number] [address] LABCLIA [id number] [place] [address] MCH (RBC) [Entitic mass] 34.3 pg High 26.0-34.0 [facility] Comment on above: Order Comment: Speci men Type: BLOOD SPECIMENOrdering Facility: [facility] Address: [address] [place], [place] [address] Performed By: #### 5 7021-8 ####[facility] LABCLIA [id number] [address] LABCLIA [id number] [place] [address] MCHC (RBC) [Mass/Vol] 32.6 g/dL Normal 30.5-36.0 [facility] Comment on above: Order Comment: Speci men Type: BLOOD SPECIMENOrdering Facility: [facility] [facility] Address: [address] [place] [address] Performed By: #### 5 7021-8 ####[facility] LABCLIA [id number] [address] LABCLIA [id number] [place] [address] MCV (RBC) [Entitic vol] 105.3 fL High 80.0-100.0 [facility] Comment on above: Order Comment: Speci men Type: BLOOD SPECIMENOrdering Facility: [facility] Address: [address] [place] [address] Performed By: #### 5 7021-8 ####[facility] LABCLIA [id number] [address] LABCLIA [id number] [place] [address] Metamyelocytes/100 WBC (Bld) 2.0 % Normal [facility] Comment on above: Order Comment: Speci men Type: BLOOD SPECIMENOrdering Facility: [facility] Address: [address] [place] [address] Performed By: #### 5 7021-8 ####[facility] LABCLIA [id number] [address] LABCLIA [id number] [place] [address] MYELO% 3.0 % Normal [facility] Comment on above: Order Comment: Speci men Type: BLOOD SPECIMENOrdering Facility: [facility] Address: [address] [place], [place] [address] Performed By: #### 5 7021-8 ####[facility] LABCLIA [id number] [address] LABCLIA [id number] [place] [address] Neutrophils (Bld) [#/Vol] 2.37 10*3/uL Normal 1.45-7.50 [facility] Comment on above: Order Comment: Speci men Type: BLOOD SPECIMENOrdering Facility: [facility] Address: [address] [place], [place] [address] Performed By: #### 5 7021-8 ####[facility] LABCLIA [id number] [address] [address] [facility] LABCLIA [id number] [place] [address] Neutrophils/100 WBC (Bld) 61.0 % Normal [facility] Comment on above: Order Comment: Speci men Type: BLOOD SPECIMENOrdering Facility: [facility] Address: [address] [place] [address] Performed By: #### 5 7021-8 ####[facility] LABCLIA [id number] [place] [id number] [facility] LABCLIA [id number] [place] [address] Nucleated RBC/100 WBC (Bld) [Ratio] 0.0 /100 WBC Normal [facility] Comment on above: Order Comment: Speci men Type: BLOOD SPECIMENOrdering Facility: [facility] Address: [address] [place] [address] Performed By: #### 5 7021-8 ####[facility] LABCLIA [id number] [place] [id number] [facility] LABCLIA [id number] [place] [address] Ovalocytes LM Ql (Bld) Few Normal [facility] Comment on above: Order Comment: Speci men Type: BLOOD SPECIMENOrdering Facility: [facility] Address: [address] [place], [place] [address] Performed By: #### 5 7021-8 ####[facility] LABCLIA [id number] [place] [id number] [facility] LABCLIA [id number] [place] [address] PLATELET ESTIMATE Adequate Normal [facility] Comment on above: Order Comment: Speci men Type: BLOOD SPECIMENOrdering Facility: [facility] Address: [address] [place] [address] Performed By: #### 5 7021-8 ####[facility] LABCLIA [id number] [address] LABCLIA [id number] [place] [address] Platelet mean volume (Bld) [Entitic vol] 13.9 fL High 9.0-12.7 [facility] Comment on above: Order Comment: Speci men Type: BLOOD SPECIMENOrdering Facility: [facility] Address: [address] [place] [address] Performed By: #### 5 7021-8 ####[facility] LABCLIA [id number] [address] LABCLIA [id number] [place] [address] Platelets (Bld) [#/Vol] 164 10*3/uL Normal 150-400 [facility] Comment on above: Order Comment: Speci men Type: BLOOD SPECIMENOrdering Facility: [facility] Address: [address] [place] [address] Result Comment: Samp le checked for clot Performed By: #### 5 7021-8 ####[facility] LABCLIA [id number] [address] LABCLIA [id number] [place] [address] Polychromasia LM Ql (Bld) Slight Normal [facility] Comment on above: Order Comment: Speci men Type: BLOOD SPECIMENOrdering Facility: [facility] Address: [address] [place] [address] Performed By: #### 5 7021-8 ####[facility] LABCLIA [id number] [address] LABCLIA [id number] [place] [address] RBC (Bld) [#/Vol] 2.45 10*6/uL Low 4.20-6.00 [facility] Comment on above: Order Comment: Speci men Type: BLOOD SPECIMENOrdering Facility: [facility] Address: [address] [place] [address] Performed By: #### 5 7021-8 ####[facility] LABCLIA [id number] [address] LABCLIA [id number] [place] [address] RBC FRAGMENTS Few Abnormal None Seen [facility] Comment on above: Order Comment: Speci men Type: BLOOD SPECIMENOrdering Facility: [facility] Address: [address] [place] [address] Performed By: #### 5 7021-8 ####[facility] LABCLIA [id number] [address] LABCLIA [id number] [place] [address] RED CELL MORPH Reviewed: see result s of individual morphologies Normal [facility] Comment on above: Order Comment: Speci men Type: BLOOD SPECIMENOrdering Facility: [facility] Address: [address] [place] [address] Performed By: #### 5 7021-8 ####[facility] LABCLIA [id number] [address] LABCLIA [id number] [place] [address] WAM - ABS BASO 0.04 k/uL Normal <0.11 [facility] Comment on above: Order Comment: Speci men Type: BLOOD SPECIMENOrdering Facility: [facility] Address: [address] [place] [address] Performed By: #### 5 7021-8 ####[facility] LABCLIA [id number] [address] [address] [facility] LABCLIA [id number] [place] [address] WAM - ABS MONO 0.39 k/uL Normal <0.87 [facility] Comment on above: Order Comment: Speci men Type: BLOOD SPECIMENOrdering Facility: [facility] Address: [address] [place] [address] Performed By: #### 5 7021-8 ####[facility] LABCLIA [id number] [address] LABCLIA [id number] [place] [address] WAM - MONO% 10.0 % Normal [facility] Comment on above: Order Comment: Speci men Type: BLOOD SPECIMENOrdering Facility: [facility] Address: [address] [place] [address] Performed By: #### 5 7021-8 ####[facility] LABCLIA [id number] [place] [address] [facility] LABCLIA [id number] [place] [address] WAM ABSOLUTE NRBC <0.01 Normal <0.01 [facility] Comment on above: Order Comment: Speci men Type: BLOOD SPECIMENOrdering Facility: [facility] Address: [address] [place] [address] Performed By: #### 5 7021-8 ####[facility] LABCLIA [id number] [place] [id number] [facility] LABCLIA [id number] [place] [address] WBC (Bld) [#/Vol] 3.77 10*3/uL Normal 3.70-11.00 [facility] Comment on above: Order Comment: Speci men Type: BLOOD SPECIMENOrdering Facility: [facility] Address: [address] [place] [address] Result Comment: No c lot detected. Checked and Verified Performed By: #### 5 7021-8 ####[facility] LABCLIA [id number] [place] [id number] [facility] LABCLIA [id number] [place] [address] WBC Left Shift Ql (Bld) Present Normal [facility] Comment on above: Order Comment: Speci men Type: BLOOD SPECIMENOrdering Facility: [facility] Address: [address] [place] [address] Performed By: #### 5 7021-8 ####[facility] LABCLIA [id number] [address] LABCLIA [id number] [place] [address] Comprehensive metabolic 2000 panelon 02-18-2022 Albumin [Mass/Vol] 3.9 g/dL Normal 3.9-4.9 [facility] Comment on above: Order Comment: Speci men Type: BLOOD SPECIMENOrdering Facility: [facility] Address: [address] [place], [place] [address] Performed By: #### 2 4323-8, 2532-0 ####[facility] LABCLIA [id number] [place] [address] ALP [Catalytic activity/Vol] 68 U/L Normal 38-113 [facility] Comment on above: Order Comment: Speci men Type: BLOOD SPECIMENOrdering Facility: [facility] Address: [address] [place], [place] [address] Performed By: #### 2 4323-8, 2531-0 ####[facility] LABCLIA [id number] [place] [address] ALT [Catalytic activity/Vol] 34 U/L Normal 10-54 [facility] Comment on above: Order Comment: Speci men Type: BLOOD SPECIMENOrdering Facility: [facility] Address: [address] [place] [address] Performed By: #### 2 432-8, 2531-0 ####[facility] LABCLIA [id number] [place] [address] Anion gap [Moles/Vol] 10 mmol/L Normal 9-18 [facility] Comment on above: Order Comment: Speci men Type: BLOOD SPECIMENOrdering Facility: [facility] Address: [address] [place] [address] Performed By: #### 2 4328, 2531-0 ####[facility] LABCLIA [id number] [place] [address] AST [Catalytic activity/Vol] 13 U/L Low 14-40 [facility] Comment on above: Order Comment: Speci men Type: BLOOD SPECIMENOrdering Facility: [facility] Address: [address] [place] [address] Performed By: #### 2 4323-8, 2531-0 ####[facility] LABCLIA [id number] [place] [address] Bilirubin [Mass/Vol] 0.7 mg/dL Normal 0.2-1.3 [facility] Comment on above: Order Comment: Speci men Type: BLOOD SPECIMENOrdering Facility: [facility] Address: [address] [place] [address] Performed By: #### 2 4323-8, 253-0 ####[facility] LABCLIA [id number] [place] [address] Calcium [Mass/Vol] 9.1 mg/dL Normal 8.5-10.2 [facility] Comment on above: Order Comment: Speci men Type: BLOOD SPECIMENOrdering Facility: [facility] Address: [address] [place], [place] [address] Performed By: #### 2 4323-8, 2531-0 ####[facility] LABCLIA [id number] [place] [address] Chloride [Moles/Vol] 102 mmol/L Normal 97-105 [facility] Comment on above: Order Comment: Speci men Type: BLOOD SPECIMENOrdering Facility: [facility] Address: [address] [place] [address] Performed By: #### 2 4323-8, 2531-0 ####[facility] LABCLIA [id number] [place] [address] CO2 [Moles/Vol] 33 mmol/L High 22-30 [facility] Comment on above: Order Comment: Speci men Type: BLOOD SPECIMENOrdering Facility: [facility] Address: [address] [place] [address] Performed By: #### 2 4323-8, 2531-0 ####[facility] LABCLIA [id number] [place] [address] Creatinine [Mass/Vol] 1.90 mg/dL High 0.73-1.22 [facility] Comment on above: Order Comment: Speci men Type: BLOOD SPECIMENOrdering Facility: [facility] Address: [address] [place], [place] [address] Performed By: #### 2 4323-8, 2531-0 ####[facility] LABCLIA [id number] [place] [address] ESTIMATED GLOMERULAR FILTRATION RATE 35 mL/min/1.73m??? Low >=60 [facility] Comment on above: Order Comment: Speci men Type: BLOOD SPECIMENOrdering Facility: [facility] Address: [address] [place] [address] Result Comment: Faye mated Glomerular Filtration Rate [...] actual GFR. Performed By: #### 2 4328, 0 ####[facility] LABIA [id number] [place] [address] Glucose [Mass/Vol] 250 mg/dL High 74-99 [facility] Comment on above: Order Comment: Speci men Type: BLOOD SPECIMENOrdering Facility: [facility] Address: [address] [place] [address] Result Comment: The [place] [employer] (ADA) provides guidance for cutoff [...] Standards of Medical Care in Diabetes 2016, [place] [employer]. Diabetes Care. 2016.39(Suppl 1). Performed By: #### 2 [address], ####[facility] LABIA [id number] [place] [address] Potassium [Moles/Vol] 4.0 mmol/L Normal 3.7-5.1 [facility] Comment on above: Order Comment: Davi avendaño Type: BLOOD SPECIMENOrdering Facility: [facility] Address: [address] [place] [id number] Performed By: #### 2 4323-8, 0 ####[facility] LABCLIA [id number] [place] [address] Protein [Mass/Vol] 6.1 g/dL Low 6.3-8.0 [facility] Comment on above: Order Comment: Speci men Type: BLOOD SPECIMENOrdering Facility: [facility] Address: [address] [place] [address] Performed By: #### 2 4323-8, 2532-0 ####[facility] LABCLIA [id number] [place] [address] Sodium [Moles/Vol] 145 mmol/L High 136-144 [facility] Comment on above: Order Comment: Speci men Type: BLOOD SPECIMENOrdering Facility: [facility] Address: [address] [place] [address] Performed By: #### 2 4323-8, 2531-0 ####[facility] LABIA [id number] [place] [address] Urea nitrogen [Mass/Vol] 42 mg/dL High 9-24 [facility] Comment on above: Order Comment: Speci men Type: BLOOD SPECIMENOrdering Facility: [facility] Address: [address] [place] [address] Performed By: #### 2 4323-8, 253-0 ####[facility] LABIA [id number] [place] [address] LDH SerPl-cCncon 02-18-2022 LDH [Catalytic activity/Vol] 248 U/L High 135-225 [facility] Comment on above: Order Comment: Speci men Type: BLOOD SPECIMENOrdering Facility: [facility] Address: [address] [place] [address] Performed By: #### 2 4323-8, 2532-0 ####[facility] LABIA [id number] [place] [address] PRBC LEUKOREDUCEDon 02-18-20 22 ABO and Rh group Nom (Bld) Cross Match Result Compatible Unit Blood Type A Pos Unit Number [id number] Status Information Transfused Product ID Red Blood Cells Product Code [id number] Cross Match Result Compatible Unit Blood Type A Pos Unit Number [id number] Status Information Transfused Product ID Red Blood Cells Product Code [id number] Normal [facility] Comment on above: Performed By: #### P RBC, TNS #### [facility] [address] [place], [place] [address] Dr. Benito To CBC W Auto Differential pane l (Bld)on 02-15-2022 Anisocytosis Ql (Bld) Present Normal [facility] Comment on above: Order Comment: Speci men Type: BLOOD SPECIMENOrdering Facility: [facility] Address: [address] [place] [address] Performed By: #### 5 7021-8 ####[facility] LABCLIA [id number] [address] LABCLIA [id number] [place] [address] Basophils/100 WBC (Bld) 0.0 % Normal [facility] Comment on above: Order Comment: Speci men Type: BLOOD SPECIMENOrdering Facility: [facility] Address: [address] [place] [address] Performed By: #### 5 7021-8 ####[facility] LABCLIA [id number] [address] LABCLIA [id number] [place] [address] Differential cell count method Nom (Bld) Manual Normal [facility] Comment on above: Order Comment: Speci men Type: BLOOD SPECIMENOrdering Facility: [facility] Address: [address] [place] [address] Performed By: #### 5 7021-8 ####[facility] LABCLIA [id number] [address] LABCLIA [id number] [place] [address] Eosinophils (Bld) [#/Vol] 0.00 10*3/uL Normal <0.46 [facility] Comment on above: Order Comment: Speci men Type: BLOOD SPECIMENOrdering Facility: [facility] Address: [address] [place] [address] Performed By: #### 5 7021-8 ####[facility] LABCLIA [id number] [address] LABCLIA [id number] [place] [address] Eosinophils/100 WBC (Bld) 0.0 % Normal [facility] Comment on above: Order Comment: Speci men Type: BLOOD SPECIMENOrdering Facility: [facility] Address: [address] [place] [address] Performed By: #### 5 7021-8 ####[facility] LABCLIA [id number] [address] LABCLIA [id number] [place] [address] Erythrocyte distribution width (RBC) [Ratio] 24.0 % High 11.5-15.0 [facility] Comment on above: Order Comment: Speci men Type: BLOOD SPECIMENOrdering Facility: [facility] Address: [address] [place] [address] Result Comment: Suresh ected result: Previously reported as 24.0 % on 02/15/2022 at 1:41 PM EDT.Corrected result: Previously reported as 23.8 % on 02/15/2022 at 11:23 PM EDT. Performed By: #### 5 7021-8 ####[facility] LABCLIA [id number] [address] LABCLIA [id number] [place] [address] Giant platelets LM Ql (Bld) Occasional Normal [facility] Comment on above: Order Comment: Speci men Type: BLOOD SPECIMENOrdering Facility: [facility] Address: [address] [place] [address] Performed By: #### 5 7021-8 ####[facility] LABCLIA [id number] [address] LABCLIA [id number] [place] [address] Hematocrit (Bld) [Volume fraction] 24.6 % Low 39.0-51.0 [facility] Comment on above: Order Comment: Speci men Type: BLOOD SPECIMENOrdering Facility: [facility] Address: [address] [place] [address] Result Comment: Suresh ected result: Previously reported as 24.6 % on 02/15/2022 at 1:41 PM EDT.Corrected result: Previously reported as 24.8 % on 02/15/2022 at 11:23 PM EDT. Performed By: #### 5 7021-8 ####[facility] LABCLIA [id number] [address] LABCLIA [id number] [place] [address] Hemoglobin (Bld) [Mass/Vol] 7.9 g/dL Low 13.0-17.0 [facility] Comment on above: Order Comment: Speci men Type: BLOOD SPECIMENOrdering Facility: [facility] Address: [address] [place] [address] Result Comment: Suresh ected result: Previously reported as 7.9 g/dL on 02/15/2022 at 1:41 PM EDT.Corrected result: Previously reported as 8.0 g/dL on 02/15/2022 at 11:23 PM EDT. Performed By: #### 5 7021-8 ####[facility] LABCLIA [id number] [address] LABCLIA [id number] [place] [address] Lymphocytes (Bld) [#/Vol] 0.87 10*3/uL Low 1.00-4.00 [facility] Comment on above: Order Comment: Speci men Type: BLOOD SPECIMENOrdering Facility: [facility] Address: [address] [place] [address] Performed By: #### 5 7021-8 ####[facility] LABCLIA [id number] [address] LABCLIA [id number] [place] [address] Lymphocytes/100 WBC (Bld) 18.0 % Normal [facility] Comment on above: Order Comment: Speci men Type: BLOOD SPECIMENOrdering Facility: [facility] Address: [address] [place] [address] Performed By: #### 5 7021-8 ####[facility] LABCLIA [id number] [address] LABCLIA [id number] [place] [address] MCH (RBC) [Entitic mass] 33.5 pg Normal 26.0-34.0 [facility] Comment on above: Order Comment: Speci men Type: BLOOD SPECIMENOrdering Facility: [facility] Address: [address] [place] [address] Result Comment: Suresh ected result: Previously reported as 33.5 pg on 02/15/2022 at 1:41 PM EDT.Corrected result: Previously reported as 33.9 pg on 02/15/2022 at 11:23 PM EDT. Performed By: #### 5 7021-8 ####[facility] LABCLIA [id number] [address] LABCLIA [id number] [place] [address] MCHC (RBC) [Mass/Vol] 32.1 g/dL Normal 30.5-36.0 [facility] Comment on above: Order Comment: Speci men Type: BLOOD SPECIMENOrdering Facility: [facility] Address: [address] [place] [address] Result Comment: Suresh ected result: Previously reported as 32.1 g/dL on 02/15/2022 at 1:41 PM EDT.Corrected result: Previously reported as 32.3 g/dL on 02/15/2022 at 11:23 PM EDT. Performed By: #### 5 7021-8 ####[facility] LABCLIA [id number] [address] LABCLIA [id number] [place] [address] MCV (RBC) [Entitic vol] 104.2 fL High 80.0-100.0 [facility] Comment on above: Order Comment: Speci men Type: BLOOD SPECIMENOrdering Facility: [facility] Address: [address] [place] [address] Result Comment: Suresh ected result: Previously reported as 104.2 fL on 02/15/2022 at 1:41 PM EDT.Corrected result: Previously reported as 105.1 fL on 02/15/2022 at 11:23 PM EDT. Performed By: #### 5 7021-8 ####[facility] LABCLIA [id number] [address] LABCLIA [id number] [place] [address] Neutrophils (Bld) [#/Vol] 3.54 10*3/uL Normal 1.45-7.50 [facility] Comment on above: Order Comment: Speci men Type: BLOOD SPECIMENOrdering Facility: [facility] Address: [address] [place] [address] Performed By: #### 5 7021-8 ####[facility] LABCLIA [id number] [place] [id number] [facility] LABCLIA [id number] [place] [address] Neutrophils/100 WBC (Bld) 73.0 % Normal [facility] Comment on above: Order Comment: Speci men Type: BLOOD SPECIMENOrdering Facility: [facility] Address: [address] [place] [address] Performed By: #### 5 7021-8 ####[facility] LABCLIA [id number] [address] LABCLIA [id number] [place] [address] Nucleated RBC/100 WBC (Bld) [Ratio] 0.0 /100 WBC Normal [facility] Comment on above: Order Comment: Speci men Type: BLOOD SPECIMENOrdering Facility: [facility] Address: [address] [place] [address] Performed By: #### 5 7021-8 ####[facility] LABCLIA [id number] [address] LABCLIA [id number] [place] [address] Ovalocytes LM Ql (Bld) Few Normal [facility] Comment on above: Order Comment: Speci men Type: BLOOD SPECIMENOrdering Facility: [facility] Address: [address] [place] [address] Performed By: #### 5 7021-8 ####[facility] LABCLIA [id number] [facility] [place] [id number] [facility] LABCLIA [id number] [place] [address] PLATELET ESTIMATE Adequate Normal [facility] Comment on above: Order Comment: Speci men Type: BLOOD SPECIMENOrdering Facility: [facility] Address: [address] [place] [address] Performed By: #### 5 7021-8 ####[facility] LABCLIA [id number] [address] LABCLIA [id number] [place] [address] Platelet mean volume (Bld) [Entitic vol] 14.0 fL High 9.0-12.7 [facility] Comment on above: Order Comment: Speci [facility] Type: BLOOD SPECIMENOrdering Facility: [facility] Address: [address] [place] [address] Result Comment: Suresh ected result: Previously reported as 14.0 fL on 02/15/2022 at 1:41 PM EDT.Corrected result: Previously reported as 15.1 fL on 02/15/2022 at 11:23 PM EDT. Performed By: #### 5 7021-8 ####[facility] LABCLIA [id number] [address] LABCLIA [id number] [place] [address] Platelets (Bld) [#/Vol] 170 10*3/uL Normal 150-400 [facility] Comment on above: Order Comment: Speci men Type: BLOOD SPECIMENOrdering Facility: [facility] Address: [address] [place] [address] Result Comment: Samp le checked for clotCorrected result: Previously reported as 170 k/uL on 02/15/2022 at 1:41 PM EDT.Corrected result: Previously reported as 158 k/uL on 02/15/2022 at 11:23 PM EDT. Performed By: #### 5 7021-8 ####[facility] LABCLIA [id number] [place] [id number] [facility] LABCLIA [id number] [place] [address] Polychromasia LM Ql (Bld) Slight Normal [facility] Comment on above: Order Comment: Speci men Type: BLOOD SPECIMENOrdering Facility: [facility] Address: [address] [place] [address] Performed By: #### 5 7021-8 ####[facility] LABCLIA [id number] [address] LABCLIA [id number] [place] [address] RBC (Bld) [#/Vol] 2.36 10*6/uL Low 4.20-6.00 [facility] Comment on above: Order Comment: Speci men Type: BLOOD SPECIMENOrdering Facility: [facility] Address: [address] [place] [address] Performed By: #### 5 7021-8 ####[facility] LABCLIA [id number] [address] LABCLIA [id number] [place] [address] RBC FRAGMENTS Few Abnormal None Seen [facility] Comment on above: Order Comment: Speci men Type: BLOOD SPECIMENOrdering Facility: [facility] Address: [address] [place] [address] Performed By: #### 5 7021-8 ####[facility] LABCLIA [id number] [address] LABCLIA [id number] [place] [address] RED CELL MORPH Reviewed: see result s of individual morphologies Normal [facility] Comment on above: Order Comment: Speci men Type: BLOOD SPECIMENOrdering Facility: [facility] Address: [address] [place], [place] [address] Performed By: #### 5 7021-8 ####[facility] LABCLIA [id number] [place] [id number] [facility] LABCLIA [id number] [place] [address] WAM - ABS BASO 0.00 k/uL Normal <0.11 [facility] Comment on above: Order Comment: Speci men Type: BLOOD SPECIMENOrdering Facility: [facility] Address: [address] [place], [place] [address] Performed By: #### 5 7021-8 ####[facility] LABCLIA [id number] [address] LABCLIA [id number] [place] [address] WAM - ABS MONO 0.44 k/uL Normal <0.87 [facility] Comment on above: Order Comment: Speci men Type: BLOOD SPECIMENOrdering Facility: [facility] Address: [address] [place] [address] Performed By: #### 5 7021-8 ####[facility] LABCLIA [id number] [address] LABCLIA [id number] [place] [address] WAM - MONO% 9.0 % Normal [facility] Comment on above: Order Comment: Speci men Type: BLOOD SPECIMENOrdering Facility: [facility] Address: [address] [place] [address] Performed By: #### 5 7021-8 ####[facility] LABCLIA [id number] [place] [id number] [facility] LABCLIA [id number] [place] [address] WAM ABSOLUTE NRBC <0.01 Normal <0.01 [facility] Comment on above: Order Comment: Speci men Type: BLOOD SPECIMENOrdering Facility: [facility] Address: [address] [place] [address] Performed By: #### 5 7021-8 ####[facility] LABCLIA [id number] [place] [id number] [facility] LABCLIA [id number] [place] [address] WBC (Bld) [#/Vol] 4.85 10*3/uL Normal 3.70-11.00 [facility] Comment on above: Order Comment: Speci men Type: BLOOD SPECIMENOrdering Facility: [facility] Address: [address] [place], [place] [address] Performed By: #### 5 7021-8 ####[facility] LABCLIA [id number] [address] LABCLIA [id number] [place] [address] Comprehensive metabolic 2000 panelon 02-15-2022 Albumin [Mass/Vol] 3.9 g/dL Normal 3.9-4.9 [facility] Comment on above: Order Comment: Speci men Type: BLOOD SPECIMENOrdering Facility: [facility] Address: [address] [place], [place] [address] Performed By: #### 2 532-0, 54903-9 ####[facility] LABCLIA [id number] [place] [address] ALP [Catalytic activity/Vol] 64 U/L Normal 38-113 [facility] Comment on above: Order Comment: Speci men Type: BLOOD SPECIMENOrdering Facility: [facility] Address: [address] [place], [place] [address] Performed By: #### 2 532-0, 87488-5 ####[facility] LABCLIA [id number] [place] [address] ALT [Catalytic activity/Vol] 26 U/L Normal 10-54 [facility] Comment on above: Order Comment: Speci men Type: BLOOD SPECIMENOrdering Facility: [facility] Address: [address] [place] [address] Performed By: #### 2 532-0, ####[facility] LABCLIA [id number] [place] [address] Anion gap [Moles/Vol] 13 mmol/L Normal 9-18 [facility] Comment on above: Order Comment: Speci men Type: BLOOD SPECIMENOrdering Facility: [facility] Address: [address] [place] [address] Performed By: #### 2 532-0, 74773-7 ####[facility] LABCLIA [id number] [place] [address] AST [Catalytic activity/Vol] 11 U/L Low 14-40 [facility] Comment on above: Order Comment: Speci men Type: BLOOD SPECIMENOrdering Facility: [facility] Address: [address] [place] [address] Performed By: #### 2 532-0, 59608-9 ####[facility] LABCLIA [id number] [place] [address] Bilirubin [Mass/Vol] 0.4 mg/dL Normal 0.2-1.3 [facility] Comment on above: Order Comment: Speci men Type: BLOOD SPECIMENOrdering Facility: [facility] Address: [address] [place] [address] Performed By: #### 2 532-0, 97549-7 ####[facility] LABCLIA [id number] [place] [address] Calcium [Mass/Vol] 8.9 mg/dL Normal 8.5-10.2 [facility] Comment on above: Order Comment: Speci men Type: BLOOD SPECIMENOrdering Facility: [facility] Address: [address] [place], [place] [address] Performed By: #### 2 532-0, 99230-6 ####[facility] LABCLIA [id number] [place] [address] Chloride [Moles/Vol] 102 mmol/L Normal 97-105 [facility] Comment on above: Order Comment: Speci men Type: BLOOD SPECIMENOrdering Facility: [facility] Address: [address] [place] [address] Performed By: #### 2 532-0, 89281-7 ####[facility] LABCLIA [id number] [place] [address] CO2 [Moles/Vol] 26 mmol/L Normal 22-30 [facility] Comment on above: Order Comment: Speci men Type: BLOOD SPECIMENOrdering Facility: [facility] Address: [address] [place], [place] [address] Performed By: #### 2 532-0, 57815-1 ####[facility] LABCLIA [id number] [place] [address] Creatinine [Mass/Vol] 2.24 mg/dL High 0.73-1.22 [facility] Comment on above: Order Comment: Speci men Type: BLOOD SPECIMENOrdering Facility: [facility] Address: [address] [place], [place] [address] Performed By: #### 2 532-0, 43070-4 ####[facility] LABCLIA [id number] [place] [address] ESTIMATED GLOMERULAR FILTRATION RATE 28 mL/min/1.73m??? Low >=60 [facility] Comment on above: Order Comment: Speci men Type: BLOOD SPECIMENOrdering Facility: [facility] Address: [address] [place], [place] [address] Result Comment: Faye mated Glomerular Filtration Rate [...] actual GFR. Performed By: #### 2 532-0, 60809-0 ####[facility] LABIA [id number] [place] [address] Glucose [Mass/Vol] 206 mg/dL High 74-99 [facility] Comment on above: Order Comment: Davi avendaño Type: BLOOD SPECIMENOrdering Facility: [facility] Address: [address] [id number] Result Comment: The [place] [employer] (ADA) provides guidance for cutoff [...] Standards of Medical Care in Diabetes 2016, [place] [employer]. Diabetes Care. 2016.39(Suppl 1). Performed By: #### 2 532-0, 27599-0 ####[facility] LABIA [id number] [place] [address] Potassium [Moles/Vol] 3.7 mmol/L Normal 3.7-5.1 [facility] Comment on above: Order Comment: Davi avendaño Type: BLOOD SPECIMENOrdering Facility: [facility] Address: [address] [place] [address] Performed By: #### 2 532-0, 04277-1 ####[facility] LABCLIA [id number] [place] [address] Protein [Mass/Vol] 6.0 g/dL Low 6.3-8.0 [facility] Comment on above: Order Comment: Speci men Type: BLOOD SPECIMENOrdering Facility: [facility] Address: [address] [place] [address] Performed By: #### 2 532-0, 18840-0 ####[facility] LABCLIA [id number] [place] [address] Sodium [Moles/Vol] 141 mmol/L Normal 136-144 [facility] Comment on above: Order Comment: Speci men Type: BLOOD SPECIMENOrdering Facility: [facility] Address: [address] [place] [address] Performed By: #### 2 532-0, 92960-0 ####[facility] LABCLIA [id number] [place] [address] Urea nitrogen [Mass/Vol] 52 mg/dL High 9-24 [facility] Comment on above: Order Comment: Speci men Type: BLOOD SPECIMENOrdering Facility: [facility] Address: [address] [place] [address] Performed By: #### 2 532-0, 83496-6 ####[facility] LABCLIA [id number] [place] [address] Albumin [Mass/Vol] 3.9 g/dL 3.9 - 4.9 g/dL [facility] ALP [Catalytic activity/Vol] 64 U/L 38 - 113 U/L [facility] ALT [Catalytic activity/Vol] 26 U/L 10 - 54 U/L [facility] Anion gap [Moles/Vol] 13 mmol/L 9 - 18 mmol/L [facility] AST [Catalytic activity/Vol] 11 U/L Low 14 - 40 U/L [facility] Bilirubin [Mass/Vol] 0.4 mg/dL 0.2 - 1.3 mg/dL [facility] Calcium [Mass/Vol] 8.9 mg/dL 8.5 - 10.2 mg/dL [facility] Chloride [Moles/Vol] 102 mmol/L 97 - 105 mmol/L [facility] CO2 [Moles/Vol] 26 mmol/L 22 - 30 mmol/L [facility] Creatinine [Mass/Vol] 2.24 mg/dL High 0.73 - 1.22 mg /dL [facility] Estimated Glomerular Filtration Rate 28 mL/min/1.73m Low >=60 mL/min/1.73m [facility] Glucose [Mass/Vol] 206 mg/dL High 74 - 99 mg/dL [facility] Potassium [Moles/Vol] 3.7 mmol/L 3.7 - 5.1 mmol /L [facility] Protein [Mass/Vol] 6.0 g/dL Low 6.3 - 8.0 g/dL [facility] Sodium [Moles/Vol] 141 mmol/L 136 - 144 mmol/L [facility] Urea nitrogen [Mass/Vol] 52 mg/dL High 9 - 24 mg/dL [facility] LD LACTATE DEHYDROon LDH [Catalytic activity/Vol] 250 U/L High 135 - 225 U/L [facility] LDH SerPl-cCncon 02-15-2022 LDH [Catalytic activity/Vol] 250 U/L High 135-225 [facility] Comment on above: Order Comment: Speci men Type: BLOOD SPECIMENOrdering Facility: [facility] Address: [address] [place] [address] Performed By: #### 2 532-0, 70858-2 ####[facility] LABCLIA [id number] [place] [address] CBC W Auto Differential pane l (Bld)on 02-11-2022 Basophils (Bld) [#/Vol] 0.03 10*3/uL Normal <0.11 [facility] Comment on above: Order Comment: Speci men Type: BLOOD SPECIMENOrdering Facility: [facility] Address: [address] [place] [address] Performed By: #### 5 7021-8 ####[facility] LABCLIA [id number] [place] [address] Basophils/100 WBC (Bld) 1.2 % Normal [facility] Comment on above: Order Comment: Speci men Type: BLOOD SPECIMENOrdering Facility: [facility] Address: [address] [place] [address] Performed By: #### 5 7021-8 ####[facility] LABCLIA [id number] [place] [address] Differential cell count method Nom (Bld) Auto Normal [facility] Comment on above: Order Comment: Speci men Type: BLOOD SPECIMENOrdering Facility: [facility] Address: [address] [place] [address] Performed By: #### 5 7021-8 ####[facility] LABCLIA [id number] [place] [address] Eosinophils (Bld) [#/Vol] 10*3/uL Normal <0.46 [facility] Comment on above: Order Comment: Speci men Type: BLOOD SPECIMENOrdering Facility: [facility] Address: [address] [place] [address] Performed By: #### 5 7021-8 ####[facility] LABCLIA [id number] [place] [address] Eosinophils/100 WBC (Bld) 0.0 % Normal [facility] Comment on above: Order Comment: Speci men Type: BLOOD SPECIMENOrdering Facility: [facility] Address: [address] [place] [address] Performed By: #### 5 7021-8 ####[facility] LABCLIA [id number] [place] [address] Erythrocyte distribution width (RBC) [Ratio] 23.6 % High 11.5-15.0 [facility] Comment on above: Order Comment: Speci men Type: BLOOD SPECIMENOrdering Facility: [facility] Address: [address] [place] [address] Performed By: #### 5 7021-8 ####[facility] LABCLIA [id number] [place] [address] Hematocrit (Bld) [Volume fraction] 25.5 % Low 39.0-51.0 [facility] Comment on above: Order Comment: Speci men Type: BLOOD SPECIMENOrdering Facility: [facility] Address: [address] [place] [address] Performed By: #### 5 7021-8 ####[facility] LABIA [id number] [place] [address] Hemoglobin (Bld) [Mass/Vol] 8.1 g/dL Low 13.0-17.0 [facility] Comment on above: Order Comment: Speci men Type: BLOOD SPECIMENOrdering Facility: [facility] Address: [address] [place] [address] Performed By: #### 5 7021-8 ####[facility] LABIA [id number] [place] [address] IMMATURE GRAN % 1.6 % Normal [facility] Comment on above: Order Comment: Speci men Type: BLOOD SPECIMENOrdering Facility: [facility] Address: [address] [place] [address] Performed By: #### 5 7021-8 ####[facility] LABIA [id number] [place] [address] IMMATURE GRAN ABS 0.04 k/uL Normal <0.10 [facility] Comment on above: Order Comment: Speci men Type: BLOOD SPECIMENOrdering Facility: [facility] Address: [address] [place] [address] Performed By: #### 5 7021-8 ####[facility] LABIA [id number] [place] [address] Lymphocytes (Bld) [#/Vol] 1.17 10*3/uL Normal 1.00-4.00 [facility] Comment on above: Order Comment: Speci men Type: BLOOD SPECIMENOrdering Facility: [facility] Address: [address] [place] [address] Performed By: #### 5 7021-8 ####[facility] LABIA [id number] [place] [address] Lymphocytes/100 WBC (Bld) 46.4 % Normal [facility] Comment on above: Order Comment: Speci men Type: BLOOD SPECIMENOrdering Facility: [facility] Address: [address] [place] [address] Performed By: #### 5 7021-8 ####[facility] LABCLIA [id number] [place] [address] MCH (RBC) [Entitic mass] 33.8 pg Normal 26.0-34.0 [facility] Comment on above: Order Comment: Speci men Type: BLOOD SPECIMENOrdering Facility: [facility] Address: [address] [place] [address] Performed By: #### 5 7021-8 ####[facility] LABIA [id number] [place] [address] MCHC (RBC) [Mass/Vol] 31.8 g/dL Normal 30.5-36.0 [facility] Comment on above: Order Comment: Speci men Type: BLOOD SPECIMENOrdering Facility: [facility] Address: [address] [place] [address] Performed By: #### 5 7021-8 ####[facility] LABCLIA [id number] [place] [address] MCV (RBC) [Entitic vol] 106.3 fL High 80.0-100.0 [facility] Comment on above: Order Comment: Speci men Type: BLOOD SPECIMENOrdering Facility: [facility] Address: [address] [place] [address] Performed By: #### 5 7021-8 ####[facility] LABCLIA [id number] [place] [address] Monocytes (Bld) [#/Vol] 0.58 10*3/uL Normal <0.87 [facility] Comment on above: Order Comment: Speci men Type: BLOOD SPECIMENOrdering Facility: [facility] Address: [address] [place] [address] Performed By: #### 5 7021-8 ####[facility] LABCLIA [id number] [place] [address] Monocytes/100 WBC (Bld) 23.0 % Normal [facility] Comment on above: Order Comment: Speci men Type: BLOOD SPECIMENOrdering Facility: [facility] Address: [address] [place] [address] Performed By: #### 5 7021-8 ####[facility] LABCLIA [id number] [place] [address] Neutrophils (Bld) [#/Vol] 0.70 10*3/uL Low 1.45-7.50 [facility] Comment on above: Order Comment: Speci men Type: BLOOD SPECIMENOrdering Facility: [facility] Address: [address] [place] [address] Performed By: #### 5 7021-8 ####[facility] LABCLIA [id number] [place] [address] Neutrophils/100 WBC (Bld) 27.8 % Normal [facility] Comment on above: Order Comment: Speci men Type: BLOOD SPECIMENOrdering Facility: [facility] Address: [address] [place], [place] [address] Performed By: #### 5 7021-8 ####[facility] LABCLIA [id number] [place] [address] Nucleated RBC (Bld) [#/Vol] 10*3/uL Normal <0.01 [facility] Comment on above: Order Comment: Speci men Type: BLOOD SPECIMENOrdering Facility: [facility] Address: [address] [place], [place] [address] Performed By: #### 5 7021-8 ####[facility] LABCLIA [id number] [place] [address] Nucleated RBC/100 WBC (Bld) [Ratio] 0.0 /100 WBC Normal [facility] Comment on above: Order Comment: Speci men Type: BLOOD SPECIMENOrdering Facility: [facility] Address: [address] [place] [address] Performed By: #### 5 7021-8 ####[facility] LABCLIA [id number] [place] [address] Platelet mean volume (Bld) [Entitic vol] 12.8 fL High 9.0-12.7 [facility] Comment on above: Order Comment: Speci men Type: BLOOD SPECIMENOrdering Facility: [facility] Address: [address] [place] [address] Performed By: #### 5 7021-8 ####[facility] LABCLIA [id number] [place] [address] Platelets (Bld) [#/Vol] 135 10*3/uL Low 150-400 [facility] Comment on above: Order Comment: Speci men Type: BLOOD SPECIMENOrdering Facility: [facility] Address: [address] [place] [address] Performed By: #### 5 7021-8 ####[facility] LABCLIA [id number] [place] [address] RBC (Bld) [#/Vol] 2.40 10*6/uL Low 4.20-6.00 [facility] Comment on above: Order Comment: Speci men Type: BLOOD SPECIMENOrdering Facility: [facility] Address: [address] [place] [address] Performed By: #### 5 7021-8 ####[facility] LABCLIA [id number] [place] [address] WBC (Bld) [#/Vol] 2.52 10*3/uL Low 3.70-11.00 [facility] Comment on above: Order Comment: Speci men Type: BLOOD SPECIMENOrdering Facility: [facility] Address: [address] [place] [address] Performed By: #### 5 7021-8 ####[facility] LABCLIA [id number] [place] [address] CNOVSPon 02-11-2022 CNOVSP Normal [facility] metabolic 2000 panelon 02-11-2022 Albumin [Mass/Vol] 4.0 g/dL Normal 3.9-4.9 [facility] Comment on above: Order Comment: Speci men Type: BLOOD SPECIMENOrdering Facility: [facility] Address: [address] [place] [address] Performed By: #### 2 4323-8, 2532-0 ####[facility] LABCLIA [id number] [place] [address] ALP [Catalytic activity/Vol] 79 U/L Normal 38-113 [facility] Comment on above: Order Comment: Speci men Type: BLOOD SPECIMENOrdering Facility: [facility] Address: [address] [place] [address] Performed By: #### 2 4323-8, 2532-0 ####[facility] LABCLIA [id number] [place] [address] ALT [Catalytic activity/Vol] 23 U/L Normal 10-54 [facility] Comment on above: Order Comment: Speci men Type: BLOOD SPECIMENOrdering Facility: [facility] Address: [address] [place] [address] Performed By: #### 2 4323-8, 2532-0 ####[facility] LABCLIA [id number] [place] [address] Anion gap [Moles/Vol] 10 mmol/L Normal 9-18 [facility] Comment on above: Order Comment: Speci men Type: BLOOD SPECIMENOrdering Facility: [facility] Address: [address] [place], [place] [address] Performed By: #### 2 4323-8, 2531-0 ####[facility] LABCLIA [id number] [place] [address] AST [Catalytic activity/Vol] 14 U/L Normal 14-40 [facility] [facility] Comment on above: Order Comment: Speci men Type: BLOOD SPECIMENOrdering Facility: [facility] Address: [address] [place], [place] [address] Performed By: #### 2 4323-8, 2531-0 ####[facility] [facility] LABCLIA [id number] [place] [address] Bilirubin [Mass/Vol] 0.6 mg/dL Normal 0.2-1.3 [facility] Comment on above: Order Comment: Speci men Type: BLOOD SPECIMENOrdering Facility: [facility] Address: [address] [place], [place] [address] Performed By: #### 2 4323-8, 2531-0 ####[facility] [facility] LABIA [id number] [place] [address] Calcium [Mass/Vol] 8.5 mg/dL Normal 8.5-10.2 [facility] Comment on above: Order Comment: Speci men Type: BLOOD SPECIMENOrdering Facility: [facility] Address: [address] [place], [place] [address] Performed By: #### 2 4323-8, 2531-0 ####[facility] LABCLIA [id number] [place] [address] Chloride [Moles/Vol] 101 mmol/L Normal 97-105 [facility] Comment on above: Order Comment: Speci men Type: BLOOD SPECIMENOrdering Facility: [facility] Address: [address] [place], [place] [address] Performed By: #### 2 4323-8, 2531-0 ####[facility] LABCLIA [id number] [place] [address] CO2 [Moles/Vol] 29 mmol/L Normal 22-30 [facility] Comment on above: Order Comment: Speci men Type: BLOOD SPECIMENOrdering Facility: [facility] Address: [address] [place] [address] Performed By: #### 2 4328, 0 ####[facility] LABCLIA [id number] [place] [address] Creatinine [Mass/Vol] 2.06 mg/dL High 0.73-1.22 [facility] Comment on above: Order Comment: Speci men Type: BLOOD SPECIMENOrdering Facility: [facility] Address: [address] [place] [address] Performed By: #### 2 4328, ####[facility] LABCLIA [id number] [place] [address] ESTIMATED GLOMERULAR FILTRATION RATE 31 mL/min/1.73m??? Low >=60 [facility] Comment on above: Order Comment: Speci men Type: BLOOD SPECIMENOrdering Facility: [facility] Address: [address] [place] [address] Result Comment: Faye mated Glomerular Filtration Rate [...] GFR. Performed By: #### 2 4323-8, 0 ####[facility] LABCLIA [id number] [place] [address] Glucose [Mass/Vol] 129 mg/dL High 74-99 [facility] Comment on above: Order Comment: Davi avendaño Type: BLOOD SPECIMENOrdering Facility: [facility] Address: [address] [place], [place] [address] Result Comment: The [place] [employer] (ADA) provides guidance for cutoff [...] Standards of Medical Care in Diabetes 2016, [place] [employer]. Diabetes Care. 2016.39(Suppl 1). Performed By: #### 2 4323-8, 2531-0 ####[facility] LABCLIA [id number] [place] [address] Potassium [Moles/Vol] 4.4 mmol/L Normal 3.7-5.1 [facility] Comment on above: Order Comment: Davi avendaño Type: BLOOD SPECIMENOrdering Facility: [facility] Address: [address] [place], [place] [address] Performed By: #### 2 4323-8, 2531-0 ####[facility] LABCLIA [id number] [place] [address] Protein [Mass/Vol] 6.2 g/dL Low 6.3-8.0 [facility] Comment on above: Order Comment: Davi avendaño Type: BLOOD SPECIMENOrdering Facility: [facility] Address: [address] [place], [place] [address] Performed By: #### 2 4323-8, 2531-0 ####[facility] LABCLIA [id number] [place] [address] Sodium [Moles/Vol] 140 mmol/L Normal 136-144 [facility] Comment on above: Order Comment: Speci men Type: BLOOD SPECIMENOrdering Facility: [facility] Address: [address] [place], [place] [address] Performed By: #### 2 4323-8, 2531-0 ####[facility] LABCLIA [id number] [place] [address] Urea nitrogen [Mass/Vol] 21 mg/dL Normal 9-24 [facility] Comment on above: Order Comment: Speci men Type: BLOOD SPECIMENOrdering Facility: [facility] Address: [address] [place], [place] [address] Performed By: #### 2 4323-8, 2531-0 ####[facility] LABCLIA [id number] [place] [address] LDH SerPl-cCncon 02-11-2022 LDH [Catalytic activity/Vol] 239 U/L High 135-225 [facility] Comment on above: Order Comment: Speci men Type: BLOOD SPECIMENOrdering Facility: [facility] Address: [address] [place] [address] Performed By: #### 2 4323-8, 2531-0 ####[facility] LABCLIA [id number] [place] [address] CBC W Auto Differential pane l (Bld)on 02-04-2022 Anisocytosis Ql (Bld) Present Normal [facility] Comment on above: Order Comment: Speci men Type: BLOOD SPECIMENOrdering Facility: [facility] Address: [address] [place] [address] Performed By: #### 5 7021-8 ####[facility] LABCLIA [id number] [place], [place] [address]JDW[facility] LABCLIA [id number] [facility] [id number] [address] [place] Basophils/100 WBC (Bld) 0.9 % Normal [facility] Comment on above: Order Comment: Speci men Type: BLOOD SPECIMENOrdering Facility: [facility] Address: [address] [place] [address] Performed By: #### 5 7021-8 ####[facility] [facility] LABCLIA [id number] [address] LABCLIA [id number] [place] [address] [place] Eosinophils (Bld) [#/Vol] 0.06 10*3/uL Normal <0.46 [facility] Comment on above: Order Comment: Speci men Type: BLOOD SPECIMENOrdering Facility: [facility] Address: [address] [place] [address] Performed By: #### 5 7021-8 ####[facility] [facility] LABCLIA [id number] [address] LABCLIA [id number] [place] [address] [place] Eosinophils/100 WBC (Bld) 2.6 % Normal [facility] Comment on above: Order Comment: Speci men Type: BLOOD SPECIMENOrdering Facility: [facility] Address: [address] [place] [address] Performed By: #### 5 7021-8 ####[facility] LABCLIA [id number] [address] LABCLIA [id number] [place] [address] [place] Erythrocyte distribution width (RBC) [Ratio] 23.8 % High 11.5-15.0 [facility] Comment on above: Order Comment: Speci men Type: BLOOD SPECIMENOrdering Facility: [facility] Address: [address] [place] [address] Performed By: #### 5 7021-8 ####[facility] LABCLIA [id number] [address] LABCLIA [id number] [place] [address] [place] Hematocrit (Bld) [Volume fraction] 21.4 % Low 39.0-51.0 [facility] Comment on above: Order Comment: Speci men Type: BLOOD SPECIMENOrdering Facility: [facility] Address: [address] [place] [address] Performed By: #### 5 7021-8 ####[facility] LABCLIA [id number] [address] LABCLIA [id number] [place] [address] [place] Hemoglobin (Bld) [Mass/Vol] 6.8 g/dL Low 13.0-17.0 [facility] Comment on above: Order Comment: Speci men Type: BLOOD SPECIMENOrdering Facility: [facility] Address: [address] [place] [address] Performed By: #### 5 7021-8 ####[facility] LABCLIA [id number] [address] LABCLIA [id number] [place] [address] [place] Lymphocytes (Bld) [#/Vol] 0.82 10*3/uL Low 1.00-4.00 [facility] Comment on above: Order Comment: Speci men Type: BLOOD SPECIMENOrdering Facility: [facility] Address: [address] [place], [place] [address] Performed By: #### 5 7021-8 ####[facility] LABCLIA [id number] [address] LABCLIA [id number] [place] [address] [place] Lymphocytes/100 WBC (Bld) 38.8 % Normal [facility] Comment on above: Order Comment: Speci men Type: BLOOD SPECIMENOrdering Facility: [facility] Address: [address] [place] [address] Performed By: #### 5 7021-8 ####[facility] LABCLIA [id number] [address] LABCLIA [id number] [address] [place] [facility] MCH (RBC) [Entitic mass] 34.7 pg High 26.0-34.0 [facility] Comment on above: Order Comment: Speci men Type: BLOOD SPECIMENOrdering Facility: [facility] Address: [address] [place] [address] Performed By: #### 5 7021-8 ####[facility] [facility] LABCLIA [id number] [address] LABCLIA [id number] [address] [place] MCHC (RBC) [Mass/Vol] 31.8 g/dL Normal 30.5-36.0 [facility] Comment on above: Order Comment: Speci men Type: BLOOD SPECIMENOrdering Facility: [facility] Address: [address] [place] [address] Performed By: #### 5 7021-8 ####[facility] LABCLIA [id number] [address] LABCLIA [id number] [address] [place] MCV (RBC) [Entitic vol] 109.2 fL High 80.0-100.0 [facility] Comment on above: Order Comment: Speci men Type: BLOOD SPECIMENOrdering Facility: [facility] Address: [address] [place] [address] Performed By: #### 5 7021-8 ####[facility] LABCLIA [id number] [address] LABCLIA [id number] [place] [address] [place] Neutrophils (Bld) [#/Vol] 0.93 10*3/uL Low 1.45-7.50 [facility] Comment on above: Order Comment: Speci men Type: BLOOD SPECIMENOrdering Facility: [facility] Address: [address] [place] [address] Performed By: #### 5 7021-8 ####[facility] LABCLIA [id number] [address] LABCLIA [id number] [place] [address] [place] Neutrophils/100 WBC (Bld) 43.9 % Normal [facility] Comment on above: Order Comment: Speci men Type: BLOOD SPECIMENOrdering Facility: [facility] Address: [address] [place] [address] Performed By: #### 5 7021-8 ####[facility] LABCLIA [id number] [address] LABCLIA [id number] [place] [address] [place] Nucleated RBC/100 WBC (Bld) [Ratio] 0.0 /100 WBC Normal [facility] Comment on above: Order Comment: Speci men Type: BLOOD SPECIMENOrdering Facility: [facility] Address: [address] [place] [address] Performed By: #### 5 7021-8 ####[facility] LABCLIA [id number] [address] LABCLIA [id number] [place] [address] [place] Ovalocytes LM Ql (Bld) Few Normal [facility] Comment on above: Order Comment: Speci men Type: BLOOD SPECIMENOrdering Facility: [facility] Address: [address] [place] [address] Performed By: #### 5 7021-8 ####[facility]DROSAL[facility] [facility] LABCLIA [id number] [address] LABCLIA [id number] [place] [address] [place] PLATELET ESTIMATE Decreased Normal [facility] Comment on above: Order Comment: Speci men Type: BLOOD SPECIMENOrdering Facility: [facility] Address: [address] [place], [place] [address] Performed By: #### 5 7021-8 ####[facility] [facility] LABCLIA [id number] [address] LABCLIA [id number] [place] [address] [place] Platelet mean volume (Bld) [Entitic vol] 13.0 fL High 9.0-12.7 [facility] Comment on above: Order Comment: Speci men Type: BLOOD SPECIMENOrdering Facility: [facility] Address: [address] [place] [address] Performed By: #### 5 7021-8 ####[facility] [facility] LABCLIA [id number] [address] LABCLIA [id number] [place] [address] [place] Platelets (Bld) [#/Vol] 54 10*3/uL Low 150-400 [facility] Comment on above: Order Comment: Speci men Type: BLOOD SPECIMENOrdering Facility: [facility] Address: [address] [place] [address] Result Comment: Samp le checked for clot Performed By: #### 5 7021-8 ####[facility] LABCLIA [id number] [address] LABCLIA [id number] [place] [address] [place] Polychromasia LM Ql (Bld) Slight Normal [facility] Comment on above: Order Comment: Speci men Type: BLOOD SPECIMENOrdering Facility: [facility] Address: [address] [place] [address] Performed By: #### 5 7021-8 ####[facility] LABCLIA [id number] [address] LABCLIA [id number] [place] [address] [place] RBC (Bld) [#/Vol] 1.96 10*6/uL Low 4.20-6.00 [facility] Comment on above: Order Comment: Speci men Type: BLOOD SPECIMENOrdering Facility: [facility] Address: [address] [place] [address] Performed By: #### 5 7021-8 ####[facility] LABCLIA [id number] [address] LABCLIA [id number] [place] [address] [place] RBC FRAGMENTS Few Abnormal None Seen [facility] Comment on above: Order Comment: Speci men Type: BLOOD SPECIMENOrdering Facility: [facility] Address: [address] [place] [address] Performed By: #### 5 7021-8 ####[facility] LABCLIA [id number] [address] LABCLIA [id number] [place] [address] [place] RED CELL MORPH Reviewed: see result s of individual morphologies Normal [facility] Comment on above: Order Comment: Speci men Type: BLOOD SPECIMENOrdering Facility: [facility] Address: [address] [place] [address] Performed By: #### 5 7021-8 ####[facility] LABCLIA [id number] [address] LABCLIA [id number] [place] [address] [place] Variant lymphocytes/100 WBC (Bld) 0.0 % Normal [facility] Comment on above: Order Comment: Speci men Type: BLOOD SPECIMENOrdering Facility: [facility] Address: [address] [place], [place] [address] Performed By: #### 5 7021-8 ####[facility] LABCLIA [id number] [address] LABCLIA [id number] [place] [address] [place] WAM - ABS BASO 0.02 k/uL Normal <0.11 [facility] Comment on above: Order Comment: Speci men Type: BLOOD SPECIMENOrdering Facility: [facility] Address: [address] [place], [place] [address] Performed By: #### 5 7021-8 ####[facility] [place] [facility] LABCLIA [id number] [address] LABCLIA [id number] [place] [address] [place] WAM - ABS MONO 0.29 k/uL Normal <0.87 [facility] Comment on above: Order Comment: Speci men Type: BLOOD SPECIMENOrdering Facility: [facility] Address: [address] [place], [place] [address] Performed By: #### 5 7021-8 ####[facility] LABCLIA [id number] [address] LABCLIA [id number] [place] [address] [place] WAM - MONO% 13.8 % Normal [facility] Comment on above: Order Comment: Speci men Type: BLOOD SPECIMENOrdering Facility: [facility] Address: [address] [place] [address] Performed By: #### 5 7021-8 ####[facility] LABCLIA [id number] [address] LABCLIA [id number] [place] [address] [place] WAM ABSOLUTE NRBC <0.01 Normal <0.01 [facility] Comment on above: Order Comment: Speci men Type: BLOOD SPECIMENOrdering Facility: [facility] Address: [address] [place] [address] Result Comment: This result was previously suppressed from the chart. Performed By: #### 5 7021-8 ####[facility] LABCLIA [id number] [address] LABCLIA [id number] [place] [address] [place] WBC (Bld) [#/Vol] 2.12 10*3/uL Low 3.70-11.00 [facility] Comment on above: Order Comment: Speci men Type: BLOOD SPECIMENOrdering Facility: [facility] Address: [address] [place] [address] Performed By: #### 5 7021-8 ####[facility] LABCLIA [id number] [address] LABCLIA [id number] [place] [address] [place] CNPNon 02-04-2022 CNPN Normal [facility] Comprehensive metabolic 2000 panelon 02-04-2022 Albumin [Mass/Vol] 3.7 g/dL Low 3.9-4.9 [facility] Comment on above: Order Comment: Speci men Type: BLOOD SPECIMENOrdering Facility: [facility] Address: [address] Performed By: #### 2 532-0, 30767-4 ####[facility] LABCLIA [id number] [place] [address] ALP [Catalytic activity/Vol] 70 U/L Normal 38-113 [facility] Comment on above: Order Comment: Speci men Type: BLOOD SPECIMENOrdering Facility: [facility] Address: [address] [place] [address] Performed By: #### 2 532-0, 25170-4 ####[facility] LABCLIA [id number] [place] [address] ALT [Catalytic activity/Vol] 26 U/L Normal 10-54 [facility] Comment on above: Order Comment: Speci men Type: BLOOD SPECIMENOrdering Facility: [facility] Address: [address] [place] [address] Performed By: #### 2 532-0, ####[facility] [place] [facility] LABCLIA [id number] [place] [address] Anion gap [Moles/Vol] 14 mmol/L Normal 9-18 [facility] Comment on above: Order Comment: Speci men Type: BLOOD SPECIMENOrdering Facility: [facility] Address: [address] [place] [address] Performed By: #### 2 532-0, 87525-7 ####[facility] LABCLIA [id number] [place] [address] AST [Catalytic activity/Vol] 14 U/L Normal 14-40 [facility] Comment on above: Order Comment: Speci men Type: BLOOD SPECIMENOrdering Facility: [facility] Address: [address] [place] [address] Performed By: #### 2 532-0, 91246-6 ####[facility] LABCLIA [id number] [place] [address] Bilirubin [Mass/Vol] 0.6 mg/dL Normal 0.2-1.3 [facility] Comment on above: Order Comment: Speci men Type: BLOOD SPECIMENOrdering Facility: [facility] Address: [address] [place] [address] Performed By: #### 2 532-0, 31298-0 ####[facility] [place] [facility] LABCLIA [id number] [place] [address] Calcium [Mass/Vol] 8.4 mg/dL Low 8.5-10.2 [facility] Comment on above: Order Comment: Speci men Type: BLOOD SPECIMENOrdering Facility: [facility] Address: [address] [place] [address] Performed By: #### 2 532-0, 13396-5 ####[facility] [place] [facility] LABIA [id number] [place] [address] Chloride [Moles/Vol] 105 mmol/L Normal 97-105 [facility] Comment on above: Order Comment: Speci men Type: BLOOD SPECIMENOrdering Facility: [facility] Address: [address] [place] [address] Performed By: #### 2 532-0, ####[facility] [facility] LABCLIA [id number] [place] [address] CO2 [Moles/Vol] 24 mmol/L Normal 22-30 [facility] Comment on above: Order Comment: Speci men Type: BLOOD SPECIMENOrdering Facility: [facility] Address: [address] [place] [address] Performed By: #### 2 532-0, ####[facility] LABCLIA [id number] [place] [address] Creatinine [Mass/Vol] 1.69 mg/dL High 0.73-1.22 [facility] Comment on above: Order Comment: Speci men Type: BLOOD SPECIMENOrdering Facility: [facility] Address: [address] [place] [address] Performed By: #### 2 532-0, 83146-9 ####[facility] LABCLIA [id number] [place] [address] ESTIMATED GLOMERULAR FILTRATION RATE 40 mL/min/1.73m??? Low >=60 [facility] Comment on above: Order Comment: Davi avendaño Type: BLOOD SPECIMENOrdering Facility: [facility] Address: [address] [place] [address] Result Comment: Faye mated Glomerular Filtration Rate [...] actual GFR. Performed By: #### 2 532-0, 00618-5 ####[facility] LABCLIA [id number] [place] [address] Glucose [Mass/Vol] 279 mg/dL High 74-99 [facility] Comment on above: Order Comment: Davi avendaño Type: BLOOD SPECIMENOrdering Facility: [facility] Address: [address] [place] [address] Result Comment: The [place] [employer] (ADA) provides guidance for cutoff [...] Standards of Medical Care in Diabetes 2016, [place] [employer]. Diabetes Care. 2016.39(Suppl 1). Performed By: #### 2 532-0, ####[facility] LABCLIA [id number] [place] [address] Potassium [Moles/Vol] 4.0 mmol/L Normal 3.7-5.1 [facility] Comment on above: Order Comment: Speci men Type: BLOOD SPECIMENOrdering Facility: [facility] Address: [address] [place] [address] Performed By: #### 2 532-0, ####[facility] LABCLIA [id number] [place] [address] Protein [Mass/Vol] 5.9 g/dL Low 6.3-8.0 [facility] Comment on above: Order Comment: Speci men Type: BLOOD SPECIMENOrdering Facility: [facility] Address: [address] [place] [address] Performed By: #### 2 532-0, ####[facility] LABIA [id number] [place] [address] Sodium [Moles/Vol] 143 mmol/L Normal 136-144 [facility] Comment on above: Order Comment: Speci men Type: BLOOD SPECIMENOrdering Facility: [facility] Address: [address] [place] [address] Performed By: #### 2 532-0, ####[facility] LABCLIA [id number] [place] [address] Urea nitrogen [Mass/Vol] 20 mg/dL Normal 9-24 [facility] Comment on above: Order Comment: Speci men Type: BLOOD SPECIMENOrdering Facility: [facility] Address: [address] [place] [address] Performed By: #### 2 532-0, ####[facility] LABCLIA [id number] [place] [address] HEMOGLOBIN AND HEMATOCRITon 02-04-2022 Hematocrit (Bld) [Volume fraction] 21.1 % Critically low 42.0-54.0 [facility] Comment on above: Performed By: #### T NS, PRBC #### [facility] [address] [place] [address] Dr. Benito To Hemoglobin (Bld) [Mass/Vol] 6.8 g/dL Critically low 14.0-18.0 [facility] Comment on above: Performed By: #### T NS, PRBC #### [facility] [address] [address] [address] Benito To LDH SerPl-cCncon 02-04-2022 LDH [Catalytic activity/Vol] 210 U/L Normal 135-225 [facility] Comment on above: Order Comment: Speci men Type: BLOOD SPECIMENOrdering Facility: [facility] Address: [address] [place] [address] Performed By: #### 2 532-0, 81143-9 ####[facility] LABCLIA [id number] [place] [address] TYPE AND SCREENon 02-04-2022 TYPE AND SCREEN Negative Normal [facility] Comment on above: Performed By: #### P RBC, TNS #### [facility] [address] [place] [address] Dr. Benito To CBC W Auto Differential pane l (Bld)on 01-30-2022 Anisocytosis Ql (Bld) Present Normal [facility] Comment on above: Order Comment: Speci men Type: BLOOD SPECIMENOrdering Facility: [facility] Address: [address] [place] [address] Performed By: #### 5 7021-8 ####[facility] LABCLIA [id number] [address] LABCLIA [id number] [place] [address] [place] Basophils/100 WBC (Bld) 0.9 % Normal [facility] Comment on above: Order Comment: Speci men Type: BLOOD SPECIMENOrdering Facility: [facility] Address: [address] [place], [place] [address] Performed By: #### 5 7021-8 ####[facility] LABCLIA [id number] [address] LABCLIA [id number] [facility] [place] [address] [place] Dacrocytes LM Ql (Bld) Few Normal [facility] Comment on above: Order Comment: Speci men Type: BLOOD SPECIMENOrdering Facility: [facility] Address: [address] [place], [place] [address] Performed By: #### 5 7021-8 ####[facility] LABCLIA [id number] [address] LABCLIA [id number] [place] [address] [place] Differential cell count method Nom (Bld) Manual Normal [facility] Comment on above: Order Comment: Speci men Type: BLOOD SPECIMENOrdering Facility: [facility] Address: [address] [place], [place] [address] Performed By: #### 5 7021-8 ####[facility] LABCLIA [id number] [address] LABCLIA [id number] [facility] [place] [address] [place] Eosinophils (Bld) [#/Vol] 0.05 10*3/uL Normal <0.46 [facility] Comment on above: Order Comment: Speci men Type: BLOOD SPECIMENOrdering Facility: [facility] Address: [address] [place] [address] Performed By: #### 5 7021-8 ####[facility] LABCLIA [id number] [address] LABCLIA [id number] [place] [address] [place] Eosinophils/100 WBC (Bld) 1.8 % Normal [facility] Comment on above: Order Comment: Speci men Type: BLOOD SPECIMENOrdering Facility: [facility] Address: [address] [place] [address] Performed By: #### 5 7021-8 ####[facility] LABCLIA [id number] [address] LABCLIA [id number] [place] [address] [place] Erythrocyte distribution width (RBC) [Ratio] 23.6 % High 11.5-15.0 [facility] Comment on above: Order Comment: Speci men Type: BLOOD SPECIMENOrdering Facility: [facility] Address: [address] [place] [address] Performed By: #### 5 7021-8 ####[facility] LABCLIA [id number] [address] LABCLIA [id number] [place] [address] [place] Hematocrit (Bld) [Volume fraction] 23.5 % Low 39.0-51.0 [facility] Comment on above: Order Comment: Speci men Type: BLOOD SPECIMENOrdering Facility: [facility] Address: [address] [place], [place] [address] Performed By: #### 5 7021-8 ####[facility] LABCLIA [id number] [address] LABCLIA [id number] [place] [address] [place] Hemoglobin (Bld) [Mass/Vol] 7.4 g/dL Low 13.0-17.0 [facility] Comment on above: Order Comment: Speci men Type: BLOOD SPECIMENOrdering Facility: [facility] Address: [address] [place] [address] Performed By: #### 5 7021-8 ####[facility] LABCLIA [id number] [address] LABCLIA [id number] [place] [address] [place] Lymphocytes (Bld) [#/Vol] 0.93 10*3/uL Low 1.00-4.00 [facility] Comment on above: Order Comment: Speci men Type: BLOOD SPECIMENOrdering Facility: [facility] Address: [address] [place], [place] [address] Performed By: #### 5 7021-8 ####[facility] LABCLIA [id number] [address] LABCLIA [id number] [place] [address] [place] Lymphocytes/100 WBC (Bld) 36.3 % Normal [facility] Comment on above: Order Comment: Speci men Type: BLOOD SPECIMENOrdering Facility: [facility] Address: [address] [place], [place] [address] Performed By: #### 5 7021-8 ####[facility] LABCLIA [id number] [address] LABCLIA [id number] [place] [address] [place] MCH (RBC) [Entitic mass] 34.1 pg High 26.0-34.0 [facility] Comment on above: Order Comment: Speci men Type: BLOOD SPECIMENOrdering Facility: [facility] Address: [address] [place] [address] Performed By: #### 5 7021-8 ####[facility] LABCLIA [id number] [address] LABCLIA [id number] [place] [address] [place] MCHC (RBC) [Mass/Vol] 31.5 g/dL Normal 30.5-36.0 [facility] Comment on above: Order Comment: Speci men Type: BLOOD SPECIMENOrdering Facility: [facility] Address: [address] [place] [address] Performed By: #### 5 7021-8 ####[facility] LABCLIA [id number] [address] LABCLIA [id number] [place] [address] [place] MCV (RBC) [Entitic vol] 108.3 fL High 80.0-100.0 [facility] Comment on above: Order Comment: Speci men Type: BLOOD SPECIMENOrdering Facility: [facility] Address: [address] [place] [address] Performed By: #### 5 7021-8 ####[facility] LABCLIA [id number] [address] LABCLIA [id number] [place] [address] [place] Neutrophils (Bld) [#/Vol] 1.15 10*3/uL Low 1.45-7.50 [facility] Comment on above: Order Comment: Speci men Type: BLOOD SPECIMENOrdering Facility: [facility] Address: [address] [place], [place] [address] Performed By: #### 5 7021-8 ####[facility] LABCLIA [id number] [address] LABCLIA [id number] [place] [address] [place] Neutrophils/100 WBC (Bld) 45.1 % Normal [facility] Comment on above: Order Comment: Speci men Type: BLOOD SPECIMENOrdering Facility: [facility] Address: [address] [address] Performed By: #### 5 7021-8 ####[facility] LABCLIA [id number] [address] LABCLIA [id number] [place] [id number] [place] Nucleated RBC/100 WBC (Bld) [Ratio] 0.0 /100 WBC Normal [facility] Comment on above: Order Comment: Speci men Type: BLOOD SPECIMENOrdering Facility: [facility] Address: [address] [place] [address] Performed By: #### 5 7021-8 ####[facility] LABCLIA [id number] [address] LABCLIA [id number] [place] [address] [place] Ovalocytes LM Ql (Bld) Few Normal [facility] Comment on above: Order Comment: Speci men Type: BLOOD SPECIMENOrdering Facility: [facility] Address: [address] [place] [address] Performed By: #### 5 7021-8 ####[facility] LABCLIA [id number] [address] LABCLIA [id number] [place] [address] [place] PLATELET ESTIMATE Decreased Normal [facility] Comment on above: Order Comment: Speci men Type: BLOOD SPECIMENOrdering Facility: [facility] Address: [address] [place], [place] [address] Performed By: #### 5 7021-8 ####[facility] LABCLIA [id number] [address] LABCLIA [id number] [place] [address] [place] Platelet mean volume (Bld) [Entitic vol] 12.6 fL Normal 9.0-12.7 [facility] Comment on above: Order Comment: Speci men Type: BLOOD SPECIMENOrdering Facility: [facility] Address: [address] [place] [address] Performed By: #### 5 7021-8 ####[facility] LABCLIA [id number] [address] LABCLIA [id number] [place] [address] [place] Platelets (Bld) [#/Vol] 57 10*3/uL Low 150-400 [facility] Comment on above: Order Comment: Speci men Type: BLOOD SPECIMENOrdering Facility: [facility] Address: [address] [place] [address] Result Comment: Samp le checked for clot Performed By: #### 5 7021-8 ####[facility] LABCLIA [id number] [address] LABCLIA [id number] [place] [address] [place] Platelets agranular LM Ql (Bld) Occasional Normal [facility] Comment on above: Order Comment: Speci men Type: BLOOD SPECIMENOrdering Facility: [facility] Address: [address] [place] [address] Performed By: #### 5 7021-8 ####[facility] LABCLIA [id number] [address] LABCLIA [id number] [place] [address] [place] Polychromasia LM Ql (Bld) Slight Normal [facility] Comment on above: Order Comment: Speci men Type: BLOOD SPECIMENOrdering Facility: [facility] Address: [address] [place] [address] Performed By: #### 5 7021-8 ####[facility] LABCLIA [id number] [address] LABCLIA [id number] [place] [address] [place] RBC (Bld) [#/Vol] 2.17 10*6/uL Low 4.20-6.00 [facility] Comment on above: Order Comment: Speci men Type: BLOOD SPECIMENOrdering Facility: [facility] Address: [address] [place], [place] [address] Performed By: #### 5 7021-8 ####[facility] LABCLIA [id number] [address] LABCLIA [id number] [place] [address] [place] RBC FRAGMENTS Few Abnormal None Seen [facility] Comment on above: Order Comment: Speci men Type: BLOOD SPECIMENOrdering Facility: [facility] Address: [address] [place] [address] Performed By: #### 5 7021-8 ####[facility] LABCLIA [id number] [address] LABCLIA [id number] [place] [address] [place] RED CELL MORPH Reviewed: see result s of individual morphologies Normal [facility] Comment on above: Order Comment: Speci men Type: BLOOD SPECIMENOrdering Facility: [facility] Address: [address] [place] [address] Performed By: #### 5 7021-8 ####[facility] LABCLIA [id number] [address] LABCLIA [id number] [place] [address] [place] Variant lymphocytes/100 WBC (Bld) 0.0 % Normal [facility] Comment on above: Order Comment: Speci men Type: BLOOD SPECIMENOrdering Facility: [facility] Address: [address] [place] [address] Performed By: #### 5 7021-8 ####[facility] LABCLIA [id number] [address] LABCLIA [id number] [place] [address] [place] WAM - ABS BASO 0.02 k/uL Normal <0.11 [facility] Comment on above: Order Comment: Speci men Type: BLOOD SPECIMENOrdering Facility: [facility] Address: [address] [place] [address] Performed By: #### 5 7021-8 ####[facility] LABCLIA [id number] [address] LABCLIA [id number] [place] [address] [place] WAM - ABS MONO 0.41 k/uL Normal <0.87 [facility] Comment on above: Order Comment: Speci men Type: BLOOD SPECIMENOrdering Facility: [facility] Address: [address] [place] [address] Performed By: #### 5 7021-8 ####[facility] LABCLIA [id number] [address] LABCLIA [id number] [place] [address] [place] WAM - MONO% 15.9 % Normal [facility] Comment on above: Order Comment: Speci men Type: BLOOD SPECIMENOrdering Facility: [facility] Address: [address] [place] [address] Performed By: #### 5 7021-8 ####[facility] LABCLIA [id number] [address] LABCLIA [id number] [place] [address] [place] WAM ABSOLUTE NRBC <0.01 Normal <0.01 [facility] Comment on above: Order Comment: Speci men Type: BLOOD SPECIMENOrdering Facility: [facility] Address: [address] [place] [address] Result Comment: This result was previously suppressed from the chart. Performed By: #### 5 7021-8 ####[facility] LABCLIA [id number] [place], [place] [address]HLNVGGKFHAC[facility] LABCLIA [id number] [place] [address] [place] WBC (Bld) [#/Vol] 2.55 10*3/uL Low 3.70-11.00 [facility] Comment on above: Order Comment: Speci men Type: BLOOD SPECIMENOrdering Facility: [facility] Address: [address] [place] [address] Performed By: #### 5 7021-8 ####[facility] LABCLIA [id number] [place], [place] [address]KHSDDFIXEACMC [facility] LABCLIA [id number] [place] [address] [place] Comprehensive metabolic 2000 panelon 01-30-2022 Albumin [Mass/Vol] 3.7 g/dL Low 3.9-4.9 [facility] Comment on above: Order Comment: Speci men Type: BLOOD SPECIMENOrdering Facility: [facility] Address: [address] [place] [address] Performed By: #### 2 4323-8, 2532-0 ####[facility] LABCLIA [id number] [place] [address] ALP [Catalytic activity/Vol] 66 U/L Normal 38-113 [facility] Comment on above: Order Comment: Speci men Type: BLOOD SPECIMENOrdering Facility: [facility] Address: [address] Performed By: #### 2 4323-8, 2532-0 ####[facility] LABCLIA [id number] [place] [address] ALT [Catalytic activity/Vol] 30 U/L Normal 10-54 [facility] Comment on above: Order Comment: Speci men Type: BLOOD SPECIMENOrdering Facility: [facility] Address: [address] [place] [address] Performed By: #### 2 4323-8, 2532-0 ####[facility] LABCLIA [id number] [place] [address] Anion gap [Moles/Vol] 8 mmol/L Low 9-18 [facility] Comment on above: Order Comment: Speci men Type: BLOOD SPECIMENOrdering Facility: [facility] Address: [address] [place] [address] Performed By: #### 2 4328, 2531-0 ####[facility] LABCLIA [id number] [place] [address] AST [Catalytic activity/Vol] 17 U/L Normal 14-40 [facility] Comment on above: Order Comment: Speci men Type: BLOOD SPECIMENOrdering Facility: [facility] Address: [address] [place] [address] Performed By: #### 2 432-8, 2531-0 ####[facility] LABCLIA [id number] [place] [address] Bilirubin [Mass/Vol] 0.6 mg/dL Normal 0.2-1.3 [facility] Comment on above: Order Comment: Speci men Type: BLOOD SPECIMENOrdering Facility: [facility] Address: [address] [place] [address] Performed By: #### 2 4323-8, 2532-0 ####[facility] LABCLIA [id number] [place] [address] Calcium [Mass/Vol] 8.9 mg/dL Normal 8.5-10.2 [facility] Comment on above: Order Comment: Speci men Type: BLOOD SPECIMENOrdering Facility: [facility] Address: [address] [place] [address] Performed By: #### 2 4323-8, 2532-0 ####[facility] LABCLIA [id number] [place] [address] Chloride [Moles/Vol] 106 mmol/L High 97-105 [facility] Comment on above: Order Comment: Speci men Type: BLOOD SPECIMENOrdering Facility: [facility] Address: [address] [place] [address] Performed By: #### 2 4323-8, 2532-0 ####[facility] LABCLIA [id number] [place] [address] CO2 [Moles/Vol] 28 mmol/L Normal 22-30 [facility] Comment on above: Order Comment: Speci men Type: BLOOD SPECIMENOrdering Facility: [facility] Address: [address] [place] [address] Performed By: #### 2 4323-8, 2532-0 ####[facility] LABCLIA [id number] [place] [address] Creatinine [Mass/Vol] 1.72 mg/dL High 0.73-1.22 [facility] Comment on above: Order Comment: Speci men Type: BLOOD SPECIMENOrdering Facility: [facility] Address: [address] [place], [place] [address] Performed By: #### 2 4323-8, 2532-0 ####[facility] LABCLIA [id number] [place] [address] ESTIMATED GLOMERULAR FILTRATION RATE 39 mL/min/1.73m??? Low >=60 [facility] Comment on above: Order Comment: Speci men Type: BLOOD SPECIMENOrdering Facility: [facility] Address: [address] [place] [address] Result Comment: Faye mated Glomerular Filtration Rate [...] GFR. Performed By: #### 2 4323-8, 2531-0 ####[facility] LABCLIA [id number] [place] [address] Glucose [Mass/Vol] 246 mg/dL High 74-99 [facility] Comment on above: Order Comment: Davi avendaño Type: BLOOD SPECIMENOrdering Facility: [facility] Address: [address] [place] [address] Result Comment: The [place] [employer] (ADA) provides guidance for cutoff [...] Standards of Medical Care in Diabetes 2016, [place] [employer]. Diabetes Care. 2016.39(Suppl 1). Performed By: #### 2 4323-8, 0 ####[facility] LABCLIA [id number] [place] [address] Potassium [Moles/Vol] 4.3 mmol/L Normal 3.7-5.1 [facility] Comment on above: Order Comment: Davi avendaño Type: BLOOD SPECIMENOrdering Facility: [facility] Address: [address] [place] [address] Performed By: #### 2 4323-8, 2-0 ####[facility] LABCLIA [id number] [place] [address] Protein [Mass/Vol] 5.9 g/dL Low 6.3-8.0 [facility] Comment on above: Order Comment: Speci men Type: BLOOD SPECIMENOrdering Facility: [facility] Address: [address] [place] [address] Performed By: #### 2 432-8, 2531-0 ####[facility] LABCLIA [id number] [place] [address] Sodium [Moles/Vol] 142 mmol/L Normal 136-144 [facility] Comment on above: Order Comment: Speci men Type: BLOOD SPECIMENOrdering Facility: [facility] Address: [address] [place] [address] Performed By: #### 2 4328, 2531-0 ####[facility] LABCLIA [id number] [place] [address] Urea nitrogen [Mass/Vol] 31 mg/dL High 9-24 [facility] Comment on above: Order Comment: Speci men Type: BLOOD SPECIMENOrdering Facility: [facility] Address: [address] [place] [address] Performed By: #### 2 4328, 2531-0 ####[facility] LABCLIA [id number] [place] [address] LDH SerPl-cCncon 01-30-2022 LDH [Catalytic activity/Vol] 221 U/L Normal 135-225 [facility] Comment on above: Order Comment: Speci men Type: BLOOD SPECIMENOrdering Facility: [facility] Address: [address] [place] [address] Performed By: #### 2 4323-8, 2-0 ####[facility] LABCLIA [id number] [place] [id number] PRBC LEUKOREDUCEDon 01-25-20 PRBC LEUKOREDUCED Cross Match Result Compatible Unit Blood Type A Neg Unit Number [id number] Status Information Transfused Product ID Red Blood Cells Product Code [id number] Normal [facility] Comment on above: Performed By: #### T NS, PRBC #### [facility] [address] [place], [place] [address] Dr. Benito To CBC W Auto Differential pane l (Bld)on 01-21-2022 Anisocytosis Ql (Bld) Present Normal [facility] Comment on above: Order Comment: Speci men Type: BLOOD SPECIMENOrdering Facility: [facility] Address: [address] [place] [address] Performed By: #### 5 7021-8 ####[facility] LABCLIA [id number] [address] LABCLIA [id number] [place] [id number] Basophils/100 WBC (Bld) 0.0 % Normal [facility] Comment on above: Order Comment: Speci men Type: BLOOD SPECIMENOrdering Facility: [facility] Address: [address] [place] [address] Performed By: #### 5 7021-8 ####[facility] LABCLIA [id number] [address] LABCLIA [id number] [place] [id number] Eosinophils (Bld) [#/Vol] 0.00 10*3/uL Normal <0.46 [facility] Comment on above: Order Comment: Speci men Type: BLOOD SPECIMENOrdering Facility: [facility] Address: [address] [place] [address] Performed By: #### 5 7021-8 ####[facility] LABCLIA [id number] [address] [address] [facility] LABCLIA [id number] [place] [address] Eosinophils/100 WBC (Bld) 0.0 % Normal [facility] Comment on above: Order Comment: Speci men Type: BLOOD SPECIMENOrdering Facility: [facility] Address: [address] [place] [address] Performed By: #### 5 7021-8 ####[facility] LABCLIA [id number] [place] [id number] [facility] LABCLIA [id number] [place] [address] Erythrocyte distribution width (RBC) [Ratio] 24.2 % High 11.5-15.0 [facility] Comment on above: Order Comment: Speci men Type: BLOOD SPECIMENOrdering Facility: [facility] Address: [address] [place] [address] Performed By: #### 5 7021-8 ####[facility] LABCLIA [id number] [address] LABCLIA [id number] [place] [address] Hematocrit (Bld) [Volume fraction] 28.3 % Low 39.0-51.0 [facility] Comment on above: Order Comment: Speci men Type: BLOOD SPECIMENOrdering Facility: [facility] Address: [address] [place] [address] Performed By: #### 5 7021-8 ####[facility] LABCLIA [id number] [address] LABCLIA [id number] [place] [address] Hemoglobin (Bld) [Mass/Vol] 9.0 g/dL Low 13.0-17.0 [facility] Comment on above: Order Comment: Speci men Type: BLOOD SPECIMENOrdering Facility: [facility] Address: [address] [place] [address] Performed By: #### 5 7021-8 ####[facility] LABCLIA [id number] [address] LABCLIA [id number] [place] [address] Lymphocytes (Bld) [#/Vol] 0.73 10*3/uL Low 1.00-4.00 [facility] Comment on above: Order Comment: Speci men Type: BLOOD SPECIMENOrdering Facility: [facility] Address: [address] [place] [address] Performed By: #### 5 7021-8 ####[facility] LABCLIA [id number] [address] LABCLIA [id number] [place] [address] Lymphocytes/100 WBC (Bld) 22.0 % Normal [facility] Comment on above: Order Comment: Speci men Type: BLOOD SPECIMENOrdering Facility: [facility] Address: [address] [place] [address] Performed By: #### 5 7021-8 ####[facility] LABCLIA [id number] [address] LABCLIA [id number] [place] [address] MCH (RBC) [Entitic mass] 33.7 pg Normal 26.0-34.0 [facility] Comment on above: Order Comment: Speci men Type: BLOOD SPECIMENOrdering Facility: [facility] Address: [address] [place], [place] [address] Performed By: #### 5 7021-8 ####[facility] LABCLIA [id number] [address] LABCLIA [id number] [place] [address] MCHC (RBC) [Mass/Vol] 31.8 g/dL Normal 30.5-36.0 [facility] Comment on above: Order Comment: Speci men Type: BLOOD SPECIMENOrdering Facility: [facility] Address: [address] [place] [address] Performed By: #### 5 7021-8 ####[facility] LABCLIA [id number] [address] LABCLIA [id number] [place] [address] MCV (RBC) [Entitic vol] 106.0 fL High 80.0-100.0 [facility] Comment on above: Order Comment: Speci men Type: BLOOD SPECIMENOrdering Facility: [facility] Address: [address] [place] [address] Performed By: #### 5 7021-8 ####[facility] LABCLIA [id number] [address] LABCLIA [id number] [place] [address] Neutrophils (Bld) [#/Vol] 2.21 10*3/uL Normal 1.45-7.50 [facility] Comment on above: Order Comment: Speci men Type: BLOOD SPECIMENOrdering Facility: [facility] Address: [address] [place], [place] [address] Performed By: #### 5 7021-8 ####[facility] LABCLIA [id number] [address] LABCLIA [id number] [place] [address] Neutrophils/100 WBC (Bld) 67.0 % Normal [facility] Comment on above: Order Comment: Speci men Type: BLOOD SPECIMENOrdering Facility: [facility] Address: [address] [place] [address] Performed By: #### 5 7021-8 ####[facility] LABCLIA [id number] [address] [address] [facility] LABCLIA [id number] [place] [address] Nucleated RBC/100 WBC (Bld) [Ratio] 0.0 /100 WBC Normal [facility] Comment on above: Order Comment: Speci men Type: BLOOD SPECIMENOrdering Facility: [facility] Address: [address] [place] [address] Performed By: #### 5 7021-8 ####[facility] LABCLIA [id number] [address] LABCLIA [id number] [place] [address] Ovalocytes LM Ql (Bld) Few Normal [facility] Comment on above: Order Comment: Speci men Type: BLOOD SPECIMENOrdering Facility: [facility] Address: [address] [place] [address] Performed By: #### 5 7021-8 ####[facility] LABCLIA [id number] [place] [id number] [facility] LABCLIA [id number] [place] [address] PLATELET ESTIMATE Adequate Normal [facility] Comment on above: Order Comment: Speci men Type: BLOOD SPECIMENOrdering Facility: [facility] Address: [address] [place] [address] Performed By: #### 5 7021-8 ####[facility] LABCLIA [id number] [place] [id number] [facility] LABCLIA [id number] [place] [address] Platelet mean volume (Bld) [Entitic vol] Normal [facility] Comment on above: Order Comment: Speci men Type: BLOOD SPECIMENOrdering Facility: [facility] Address: [address] [place] [address] Result Comment: Unab le to Report. Performed By: #### 5 7021-8 ####[facility] LABCLIA [id number] [address] LABCLIA [id number] [place] [address] Platelets (Bld) [#/Vol] 170 10*3/uL Normal 150-400 [facility] Comment on above: Order Comment: Speci men Type: BLOOD SPECIMENOrdering Facility: [facility] Address: [address] [place] [address] Result Comment: Samp le checked for clot Performed By: #### 5 7021-8 ####[facility] LABCLIA [id number] [address] LABCLIA [id number] [place] [address] Polychromasia LM Ql (Bld) Slight Normal [facility] Comment on above: Order Comment: Speci men Type: BLOOD SPECIMENOrdering Facility: [facility] Address: [address] [place] [address] Performed By: #### 5 7021-8 ####[facility] LABCLIA [id number] [address] LABCLIA [id number] [place] [address] RBC (Bld) [#/Vol] 2.67 10*6/uL Low 4.20-6.00 [facility] Comment on above: Order Comment: Speci men Type: BLOOD SPECIMENOrdering Facility: [facility] Address: [address] [place] [address] Performed By: #### 5 7021-8 ####[facility] LABCLIA [id number] [address] [address] [facility] LABCLIA [id number] [place] [address] RBC FRAGMENTS Few Abnormal None Seen [facility] Comment on above: Order Comment: Speci men Type: BLOOD SPECIMENOrdering Facility: [facility] Address: [address] [place] [address] Performed By: #### 5 7021-8 ####[facility] LABCLIA [id number] [address] LABCLIA [id number] [place] [address] RED CELL MORPH Reviewed: see result s of individual morphologies Normal [facility] Comment on above: Order Comment: Speci men Type: BLOOD SPECIMENOrdering Facility: [facility] Address: [address] [place] [address] Performed By: #### 5 7021-8 ####[facility] LABCLIA [id number] [place] [id number] [facility] LABCLIA [id number] [place] [address] WAM - ABS BASO 0.00 k/uL Normal <0.11 [facility] Comment on above: Order Comment: Speci men Type: BLOOD SPECIMENOrdering Facility: [facility] Address: [address] [place] [address] Performed By: #### 5 7021-8 ####[facility] LABCLIA [id number] [place] [id number] [facility] LABCLIA [id number] [place] [id number] WAM - ABS MONO 0.30 k/uL Normal <0.87 [facility] Comment on above: Order Comment: Speci men Type: BLOOD SPECIMENOrdering Facility: [facility] Address: [address] [place] [address] Performed By: #### 5 7021-8 ####[facility] LABCLIA [id number] [address] LABCLIA [id number] [place] [address] WAM - MONO% 9.0 % Normal [facility] Comment on above: Order Comment: Speci men Type: BLOOD SPECIMENOrdering Facility: [facility] Address: [address] [place] [address] Performed By: #### 5 7021-8 ####[facility] LABCLIA [id number] [address] LABCLIA [id number] [place] [address] WAM ABSOLUTE NRBC <0.01 Normal <0.01 [facility] Comment on above: Order Comment: Speci men Type: BLOOD SPECIMENOrdering Facility: [facility] Address: [address] [place] [address] Performed By: #### 5 7021-8 ####[facility] LABIA [id number] [address] LABCLIA [id number] [place] [id number] WBC (Bld) [#/Vol] 3.30 10*3/uL Low 3.70-11.00 [facility] Comment on above: Order Comment: Speci men Type: BLOOD SPECIMENOrdering Facility: [facility] Address: [address] [place], [place] [address] Result Comment: Resu lts checked and verified. No clot detected Performed By: #### 5 7021-8 ####[facility] LABCLIA [id number] [address] LABCLIA [id number] [place] [address] WBC Left Shift Ql (Bld) Present Normal [facility] Comment on above: Order Comment: Speci men Type: BLOOD SPECIMENOrdering Facility: [facility] Address: [address] [place] [address] Performed By: #### 5 7021-8 ####[facility] LABCLIA [id number] [address] LABCLIA [id number] [place] [address] Comprehensive metabolic 2000 panelon 01-21-2022 Albumin [Mass/Vol] 3.9 g/dL Normal 3.9-4.9 [facility] Comment on above: Order Comment: Speci men Type: BLOOD SPECIMENOrdering Facility: [facility] Address: [address] [place] [address] Performed By: #### 2 4323-8 ####[facility] LABCLIA [id number] [place] [address] ALP [Catalytic activity/Vol] 62 U/L Normal 38-113 [facility] Comment on above: Order Comment: Speci men Type: BLOOD SPECIMENOrdering Facility: [facility] Address: [address] [place], [place] [address] Performed By: #### 2 4323-8 ####[facility] LABCLIA [id number] [place] [address] ALT [Catalytic activity/Vol] 40 U/L Normal 10-54 [facility] Comment on above: Order Comment: Speci men Type: BLOOD SPECIMENOrdering Facility: [facility] Address: [address] [place], [place] [address] Performed By: #### 2 4323-8 ####[facility] LABCLIA [id number] [place] [address] Anion gap [Moles/Vol] 10 mmol/L Normal 9-18 [facility] Comment on above: Order Comment: Speci men Type: BLOOD SPECIMENOrdering Facility: [facility] Address: [address] [place] [address] Performed By: #### 2 4323-8 ####[facility] LABCLIA [id number] [place] [address] AST [Catalytic activity/Vol] 19 U/L Normal 14-40 [facility] Comment on above: Order Comment: Speci men Type: BLOOD SPECIMENOrdering Facility: [facility] Address: [address] [place] [address] Performed By: #### 2 4323-8 ####[facility] LABCLIA [id number] [place] [address] Bilirubin [Mass/Vol] 0.8 mg/dL Normal 0.2-1.3 [facility] Comment on above: Order Comment: Speci men Type: BLOOD SPECIMENOrdering Facility: [facility] Address: [address] [place] [address] Performed By: #### 2 4323-8 ####[facility] LABCLIA [id number] [place] [address] Calcium [Mass/Vol] 8.8 mg/dL Normal 8.5-10.2 [facility] Comment on above: Order Comment: Speci men Type: BLOOD SPECIMENOrdering Facility: [facility] Address: [address] [place] [address] Performed By: #### 2 4323-8 ####[facility] LABCLIA [id number] [place] [address] Chloride [Moles/Vol] 101 mmol/L Normal 97-105 [facility] Comment on above: Order Comment: Speci men Type: BLOOD SPECIMENOrdering Facility: [facility] Address: [address] [place] [address] Performed By: #### 2 4323-8 ####[facility] LABCLIA [id number] [place] [address] CO2 [Moles/Vol] 31 mmol/L High 22-30 [facility] Comment on above: Order Comment: Speci men Type: BLOOD SPECIMENOrdering Facility: [facility] Address: [address] [place] [address] Performed By: #### 2 4323-8 ####[facility] LABIA [id number] [place] [address] Creatinine [Mass/Vol] 1.95 mg/dL High 0.73-1.22 [facility] Comment on above: Order Comment: Speci men Type: BLOOD SPECIMENOrdering Facility: [facility] Address: [address] [place] [address] Performed By: #### 2 4323-8 ####[facility] LABCLIA [id number] [place] [address] ESTIMATED GLOMERULAR FILTRATION RATE 34 mL/min/1.73m??? Low >=60 [facility] Comment on above: Order Comment: Speci men Type: BLOOD SPECIMENOrdering Facility: [facility] Address: [address] [place] [address] Result Comment: Faye mated Glomerular Filtration Rate [...] actual GFR. Performed By: #### 2 4323-8 ####[facility] LABCLIA [id number] [place] [address] Glucose [Mass/Vol] 231 mg/dL High 74-99 [facility] Comment on above: Order Comment: Speci men Type: BLOOD SPECIMENOrdering Facility: [facility] Address: [address] [place], [place] [address] Result Comment: The [place] [employer] (ADA) provides guidance for cutoff [...] Standards of Medical Care in Diabetes 2016, [place] [employer]. Diabetes Care. 2016.39(Suppl 1). Performed By: #### 2 4323-8 ####[facility] LABCLIA [id number] [place] [address] Potassium [Moles/Vol] 3.6 mmol/L Low 3.7-5.1 [facility] Comment on above: Order Comment: Speci men Type: BLOOD SPECIMENOrdering Facility: [facility] Address: [address] [place], [place] [address] Performed By: #### 2 4323-8 ####[facility] LABCLIA [id number] [place] [address] Protein [Mass/Vol] 6.1 g/dL Low 6.3-8.0 [facility] Comment on above: Order Comment: Speci men Type: BLOOD SPECIMENOrdering Facility: [facility] Address: [address] [place], [place] [address] Performed By: #### 2 4323-8 ####[facility] LABCLIA [id number] [place] [address] Sodium [Moles/Vol] 142 mmol/L Normal 136-144 [facility] Comment on above: Order Comment: Speci men Type: BLOOD SPECIMENOrdering Facility: [facility] Address: [address] [place] [address] Performed By: #### 2 4323-8 ####[facility] LABCLIA [id number] [place] [address] Urea nitrogen [Mass/Vol] 39 mg/dL High 9-24 [facility] Comment on above: Order Comment: Speci men Type: BLOOD SPECIMENOrdering Facility: [facility] Address: [address] [place] [address] Performed By: #### 2 4323-8 ####[facility] LABCLIA [id number] [place] [address] Albumin [Mass/Vol] 3.9 g/dL 3.9 - 4.9 g/dL [facility] ALP [Catalytic activity/Vol] 62 U/L 38 - 113 U/L [facility] ALT [Catalytic activity/Vol] 40 U/L 10 - 54 U/L [facility] Anion gap [Moles/Vol] 10 mmol/L 9 - 18 mmol/L [facility] AST [Catalytic activity/Vol] 19 U/L 14 - 40 U/L [facility] Bilirubin [Mass/Vol] 0.8 mg/dL 0.2 - 1.3 mg/dL [facility] Calcium [Mass/Vol] 8.8 mg/dL 8.5 - 10.2 mg/dL [facility] Chloride [Moles/Vol] 101 mmol/L 97 - 105 mmol/L [facility] CO2 [Moles/Vol] 31 mmol/L High 22 - 30 mmol/L [facility] Creatinine [Mass/Vol] 1.95 mg/dL High 0.73 - 1.22 mg /dL [facility] Estimated Glomerular Filtration Rate 34 mL/min/1.73m Low >=60 mL/min/1.73m [facility] Glucose [Mass/Vol] 231 mg/dL High 74 - 99 mg/dL [facility] Potassium [Moles/Vol] 3.6 mmol/L Low 3.7 - 5.1 mmol /L [facility] Protein [Mass/Vol] 6.1 g/dL Low 6.3 - 8.0 g/dL [facility] Sodium [Moles/Vol] 142 mmol/L 136 - 144 mmol/L [facility] Urea nitrogen [Mass/Vol] 39 mg/dL High 9 - 24 mg/dL [facility] metabolic 2000 panelon 01-18-2022 Albumin [Mass/Vol] 4.1 g/dL Normal 3.9-4.9 [facility] Comment on above: Order Comment: Speci men Type: BLOOD SPECIMENOrdering Facility: [facility] Address: [address] [place] [address] Performed By: #### 2 4323-8 ####[facility] LABIA [id number] [place] [address] ALP [Catalytic activity/Vol] 62 U/L Normal 38-113 [facility] Comment on above: Order Comment: Speci men Type: BLOOD SPECIMENOrdering Facility: [facility] Address: [address] [place] [address] Performed By: #### 2 4323-8 ####[facility] LABCLIA [id number] [place] [address] ALT [Catalytic activity/Vol] 24 U/L Normal 10-54 [facility] Comment on above: Order Comment: Speci men Type: BLOOD SPECIMENOrdering Facility: [facility] Address: [address] [place] [address] Performed By: #### 2 4323-8 ####[facility] LABCLIA [id number] [place] [address] Anion gap [Moles/Vol] 10 mmol/L Normal 9-18 [facility] Comment on above: Order Comment: Speci men Type: BLOOD SPECIMENOrdering Facility: [facility] Address: [address] [place] [address] Performed By: #### 2 4323-8 ####[facility] LABCLIA [id number] [place] [address] AST [Catalytic activity/Vol] 12 U/L Low 14-40 [facility] Comment on above: Order Comment: Speci men Type: BLOOD SPECIMENOrdering Facility: [facility] Address: [address] [place], [place] [address] Performed By: #### 2 4323-8 ####[facility] LABCLIA [id number] [place] [address] Bilirubin [Mass/Vol] 0.6 mg/dL Normal 0.2-1.3 [facility] Comment on above: Order Comment: Speci men Type: BLOOD SPECIMENOrdering Facility: [facility] Address: [address] [place] [address] Performed By: #### 2 4323-8 ####[facility] LABCLIA [id number] [place] [address] Calcium [Mass/Vol] 9.4 mg/dL Normal 8.5-10.2 [facility] Comment on above: Order Comment: Speci men Type: BLOOD SPECIMENOrdering Facility: [facility] Address: [address] [place] [address] Performed By: #### 2 4323-8 ####[facility] LABCLIA [id number] [place] [address] Chloride [Moles/Vol] 103 mmol/L Normal 97-105 [facility] Comment on above: Order Comment: Speci men Type: BLOOD SPECIMENOrdering Facility: [facility] Address: [address] [place], [place] [address] Performed By: #### 2 4323-8 ####[facility] LABCLIA [id number] [place] [address] CO2 [Moles/Vol] 30 mmol/L Normal 22-30 [facility] Comment on above: Order Comment: Speci men Type: BLOOD SPECIMENOrdering Facility: [facility] Address: [address] [place], [place] [address] Performed By: #### 2 4323-8 ####[facility] LABCLIA [id number] [place] [address] Creatinine [Mass/Vol] 2.14 mg/dL High 0.73-1.22 [facility] Comment on above: Order Comment: Davi avendaño Type: BLOOD SPECIMENOrdering Facility: [facility] Address: [address] [place] [address] Performed By: #### 2 4323-8 ####[facility] LABCLIA [id number] [place] [address] ESTIMATED GLOMERULAR FILTRATION RATE 30 mL/min/1.73m??? Low >=60 [facility] Comment on above: Order Comment: Davi avendaño Type: BLOOD SPECIMENOrdering Facility: [facility] Address: [address] [place] [address] Result Comment: Faye mated Glomerular Filtration Rate [...] actual GFR. Performed By: #### 2 4323-8 ####[facility] LABCLIA [id number] [place] [address] Glucose [Mass/Vol] 182 mg/dL High 74-99 [facility] Comment on above: Order Comment: Davi kateryna Type: BLOOD SPECIMENOrdering Facility: [facility] Address: [address] [place] [address] Result Comment: The [place] [employer] (ADA) provides guidance for cutoff [...] Standards of Medical Care in Diabetes 2016, [place] [employer]. Diabetes Care. 2016.39(Suppl 1). Performed By: #### 2 4323-8 ####[facility] LABCLIA [id number] [place] [address] Potassium [Moles/Vol] 3.8 mmol/L Normal 3.7-5.1 [facility] Comment on above: Order Comment: Speci men Type: BLOOD SPECIMENOrdering Facility: [facility] Address: [address] [place] [address] Performed By: #### 2 4323-8 ####[facility] LABCLIA [id number] [place] [address] Protein [Mass/Vol] 6.4 g/dL Normal 6.3-8.0 [facility] Comment on above: Order Comment: Speci men Type: BLOOD SPECIMENOrdering Facility: [facility] Address: [address] [place] [address] Performed By: #### 2 4323-8 ####[facility] LABCLIA [id number] [place] [address] Sodium [Moles/Vol] 143 mmol/L Normal 136-144 [facility] Comment on above: Order Comment: Speci men Type: BLOOD SPECIMENOrdering Facility: [facility] Address: [address] [place] [address] Performed By: #### 2 4323-8 ####[facility] LABCLIA [id number] [place] [address] Urea nitrogen [Mass/Vol] 45 mg/dL High 9-24 [facility] Comment on above: Order Comment: Speci men Type: BLOOD SPECIMENOrdering Facility: [facility] Address: [address] [place] [address] Performed By: #### 2 4323-8 ####[facility] LABCLIA [id number] [place] [address] Albumin [Mass/Vol] 4.1 g/dL 3.9 - 4.9 g/dL [facility] ALP [Catalytic activity/Vol] 62 U/L 38 - 113 U/L [facility] ALT [Catalytic activity/Vol] 24 U/L 10 - 54 U/L [facility] Anion gap [Moles/Vol] 10 mmol/L 9 - 18 mmol/L [facility] AST [Catalytic activity/Vol] 12 U/L Low 14 - 40 U/L [facility] Bilirubin [Mass/Vol] 0.6 mg/dL 0.2 - 1.3 mg/dL [facility] Calcium [Mass/Vol] 9.4 mg/dL 8.5 - 10.2 mg/dL [facility] Chloride [Moles/Vol] 103 mmol/L 97 - 105 mmol/L [facility] [facility] CO2 [Moles/Vol] 30 mmol/L 22 - 30 mmol/L [facility] Creatinine [Mass/Vol] 2.14 mg/dL High 0.73 - 1.22 mg /dL [facility] Estimated Glomerular Filtration Rate 30 mL/min/1.73m Low >=60 mL/min/1.73m [facility] Glucose [Mass/Vol] 182 mg/dL High 74 - 99 mg/dL [facility] Potassium [Moles/Vol] 3.8 mmol/L 3.7 - 5.1 mmol /L [facility] Protein [Mass/Vol] 6.4 g/dL 6.3 - 8.0 g/dL [facility] Sodium [Moles/Vol] 143 mmol/L 136 - 144 mmol/L [facility] Urea nitrogen [Mass/Vol] 45 mg/dL High 9 - 24 mg/dL [facility] HEMOGLOBIN AND HEMATOCRITon 01-15-2022 Hematocrit (Bld) [Volume fraction] 24.9 % Critically low 42.0-54.0 [facility] Comment on above: Performed By: #### T NS, PRBC #### [facility] [address] [place], [place] [address] Dr. Benito To Hemoglobin (Bld) [Mass/Vol] 7.7 g/dL Critically low 14.0-18.0 [facility] Comment on above: Performed By: #### T NS, PRBC #### [facility] [address] [place] [place] [address] [address] Benito To TYPE AND SCREENon 01-15-2022 TYPE AND SCREEN Negative Normal [facility] Comment on above: Performed By: #### T NS, PRBC #### [facility] [address] [address] [address] Benito To CBC W Auto Differential pane l (Bld)on 01-14-2022 Anisocytosis Ql (Bld) Present Normal [facility] Comment on above: Order Comment: Speci men Type: BLOOD SPECIMENOrdering Facility: [facility] Address: [address] [place] [address] Performed By: #### 5 7021-8 ####[facility] LABCLIA [id number] [address] LABCLIA [id number] [place] [address] [place] Basophils/100 WBC (Bld) 4.0 % Normal [facility] Comment on above: Order Comment: Speci men Type: BLOOD SPECIMENOrdering Facility: [facility] Address: [address] [place] [address] Performed By: #### 5 7021-8 ####[facility] LABCLIA [id number] [address] LABCLIA [id number] [place] [address] [place] Differential cell count method Nom (Bld) Manual Normal [facility] Comment on above: Order Comment: Speci men Type: BLOOD SPECIMENOrdering Facility: [facility] Address: [address] [place] [address] Performed By: #### 5 7021-8 ####[facility] LABCLIA [id number] QUARRY [address] LABCLIA [id number] [place] [address] [place] Eosinophils (Bld) [#/Vol] 0.00 10*3/uL Normal <0.46 [facility] Comment on above: Order Comment: Speci men Type: BLOOD SPECIMENOrdering Facility: [facility] Address: [address] [place] [address] Performed By: #### 5 7021-8 ####[facility] LABCLIA [id number] [address] LABCLIA [id number] [place] [address] [place] Eosinophils/100 WBC (Bld) 0.0 % Normal [facility] Comment on above: Order Comment: Speci men Type: BLOOD SPECIMENOrdering Facility: [facility] Address: [address] [place] [address] Performed By: #### 5 7021-8 ####[facility] LABCLIA [id number] [address] LABCLIA [id number] [place] [address] [place] Erythrocyte distribution width (RBC) [Ratio] 23.8 % High 11.5-15.0 [facility] Comment on above: Order Comment: Speci men Type: BLOOD SPECIMENOrdering Facility: [facility] Address: [address] [place], [place] [address] Performed By: #### 5 7021-8 ####[facility] LABCLIA [id number] [address] LABCLIA [id number] [place] [address] [place] Giant platelets LM Ql (Bld) Occasional Normal [facility] Comment on above: Order Comment: Speci men Type: BLOOD SPECIMENOrdering Facility: [facility] Address: [address] [place] [address] Performed By: #### 5 7021-8 ####[facility] LABCLIA [id number] [address] LABCLIA [id number] [place] [address] [place] Hematocrit (Bld) [Volume fraction] 23.4 % Low 39.0-51.0 [facility] Comment on above: Order Comment: Speci men Type: BLOOD SPECIMENOrdering Facility: [facility] Address: [address] [place] [address] Performed By: #### 5 7021-8 ####[facility] LABCLIA [id number] [address] LABCLIA [id number] [place] [address] [place] Hemoglobin (Bld) [Mass/Vol] 7.3 g/dL Low 13.0-17.0 [facility] Comment on above: Order Comment: Speci men Type: BLOOD SPECIMENOrdering Facility: [facility] Address: [address] [place] [address] Performed By: #### 5 7021-8 ####[facility] LABCLIA [id number] [address] LABCLIA [id number] [place] [address] [place] Lymphocytes (Bld) [#/Vol] 0.87 10*3/uL Low 1.00-4.00 [facility] Comment on above: Order Comment: Speci men Type: BLOOD SPECIMENOrdering Facility: [facility] Address: [address] [place] [address] Performed By: #### 5 7021-8 ####[facility] LABCLIA [id number] QUARRY LAKES [address] LABCLIA [id number] [place] [address] [place] Lymphocytes/100 WBC (Bld) 45.0 % Normal [facility] Comment on above: Order Comment: Speci men Type: BLOOD SPECIMENOrdering Facility: [facility] Address: [address] [place] [address] Performed By: #### 5 7021-8 ####[facility] LABCLIA [id number] [address] LABCLIA [id number] [place] [address] [place] MCH (RBC) [Entitic mass] 34.9 pg High 26.0-34.0 [facility] Comment on above: Order Comment: Speci men Type: BLOOD SPECIMENOrdering Facility: [facility] Address: [address] [place] [address] Performed By: #### 5 7021-8 ####[facility] LABCLIA [id number] [address] LABCLIA [id number] [place] [address] [place] MCHC (RBC) [Mass/Vol] 31.2 g/dL Normal 30.5-36.0 [facility] Comment on above: Order Comment: Speci men Type: BLOOD SPECIMENOrdering Facility: [facility] Address: [address] [place] [address] Performed By: #### 5 7021-8 ####[facility] LABCLIA [id number] [address] LABCLIA [id number] [place] [address] [place] MCV (RBC) [Entitic vol] 112.0 fL High 80.0-100.0 [facility] Comment on above: Order Comment: Speci men Type: BLOOD SPECIMENOrdering Facility: [facility] Address: [address] [place] [address] Performed By: #### 5 7021-8 ####[facility] LABCLIA [id number] [address] LABCLIA [id number] [place] [address] [place] Neutrophils (Bld) [#/Vol] 0.70 10*3/uL Low 1.45-7.50 [facility] Comment on above: Order Comment: Speci men Type: BLOOD SPECIMENOrdering Facility: [facility] Address: [address] [place] [address] Performed By: #### 5 7021-8 ####[facility] LABCLIA [id number] [address] LABCLIA [id number] [place] [address] [place] Neutrophils/100 WBC (Bld) 36.0 % Normal [facility] Comment on above: Order Comment: Speci men Type: BLOOD SPECIMENOrdering Facility: [facility] Address: [address] [place] [address] Performed By: #### 5 7021-8 ####[facility] LABCLIA [id number] [address] LABCLIA [id number] [place] [address] [place] Nucleated RBC/100 WBC (Bld) [Ratio] 0.0 /100 WBC Normal [facility] Comment on above: Order Comment: Speci men Type: BLOOD SPECIMENOrdering Facility: [facility] Address: [address] [place] [address] Performed By: #### 5 7021-8 ####[facility] LABCLIA [id number] [address] [facility] LABCLIA [id number] [place] [address] [place] Ovalocytes LM Ql (Bld) Few Normal [facility] Comment on above: Order Comment: Speci men Type: BLOOD SPECIMENOrdering Facility: [facility] Address: [address] [place] [address] Performed By: #### 5 7021-8 ####[facility] LABCLIA [id number] [address] LABCLIA [id number] [place] [address] [place] PLATELET ESTIMATE Adequate Normal [facility] Comment on above: Order Comment: Speci men Type: BLOOD SPECIMENOrdering Facility: [facility] Address: [address] [place] [address] Performed By: #### 5 7021-8 ####[facility] LABCLIA [id number] [address] LABCLIA [id number] [place] [address] [place] Platelet mean volume (Bld) [Entitic vol] 12.8 fL High 9.0-12.7 [facility] Comment on above: Order Comment: Speci men Type: BLOOD SPECIMENOrdering Facility: [facility] Address: [address] [place] [address] Performed By: #### 5 7021-8 ####[facility] LABCLIA [id number] [address] LABCLIA [id number] [place] [address] [place] Platelets (Bld) [#/Vol] 155 10*3/uL Normal 150-400 [facility] Comment on above: Order Comment: Speci men Type: BLOOD SPECIMENOrdering Facility: [facility] Address: [address] [place] [address] Result Comment: Resu lts checked and verified. No clot detected. Platelet count confirmed by manual review of peripheral blood smear Performed By: #### 5 7021-8 ####[facility] LABCLIA [id number] [address] LABCLIA [id number] [place] [address] [place] Polychromasia LM Ql (Bld) Slight Normal [facility] Comment on above: Order Comment: Speci men Type: BLOOD SPECIMENOrdering Facility: [facility] Address: [address] [place] [address] Performed By: #### 5 7021-8 ####[facility] LABCLIA [id number] [address] LABCLIA [id number] [place] [address] [place] RBC (Bld) [#/Vol] 2.09 10*6/uL Low 4.20-6.00 [facility] Comment on above: Order Comment: Speci men Type: BLOOD SPECIMENOrdering Facility: [facility] Address: [address] [place] [address] Performed By: #### 5 7021-8 ####[facility] LABCLIA [id number] [address] LABCLIA [id number] [place] [address] [place] RBC FRAGMENTS Few Abnormal None Seen [facility] Comment on above: Order Comment: Speci men Type: BLOOD SPECIMENOrdering Facility: [facility] Address: [address] [place] [address] Performed By: #### 5 7021-8 ####[facility] LABCLIA [id number] [address] LABCLIA [id number] [place] [address] [place] RED CELL MORPH Reviewed: see result s of individual morphologies Normal [facility] Comment on above: Order Comment: Speci men Type: BLOOD SPECIMENOrdering Facility: [facility] Address: [address] [place], [place] [address] Performed By: #### 5 7021-8 ####[facility] LABCLIA [id number] [address] LABCLIA [id number] [place] [address] [place] WAM - ABS BASO 0.08 k/uL Normal <0.11 [facility] Comment on above: Order Comment: Speci men Type: BLOOD SPECIMENOrdering Facility: [facility] Address: [address] [place] [address] Performed By: #### 5 7021-8 ####[facility] LABCLIA [id number] [address] LABCLIA [id number] [place] [address] [place] WAM - ABS MONO 0.29 k/uL Normal <0.87 [facility] Comment on above: Order Comment: Speci men Type: BLOOD SPECIMENOrdering Facility: [facility] Address: [address] [place] [address] Performed By: #### 5 7021-8 ####[facility] LABCLIA [id number] [address] LABCLIA [id number] [place] [address] [place] WAM - MONO% 15.0 % Normal [facility] Comment on above: Order Comment: Speci men Type: BLOOD SPECIMENOrdering Facility: [facility] Address: [address] [place] [address] Performed By: #### 5 7021-8 ####[facility] LABCLIA [id number] [place] [address] LABCLIA [id number] [place] [address] [place] WAM ABSOLUTE NRBC <0.01 Normal <0.01 [facility] Comment on above: Order Comment: Speci men Type: BLOOD SPECIMENOrdering Facility: [facility] Address: [address] [place] [address] Result Comment: This result was previously suppressed from the chart. Performed By: #### 5 7021-8 ####[facility] LABCLIA [id number] [address] LABCLIA [id number] [place] [address] [place] WBC (Bld) [#/Vol] 1.96 10*3/uL Low 3.70-11.00 [facility] Comment on above: Order Comment: Speci men Type: BLOOD SPECIMENOrdering Facility: [facility] Address: [address] [place] [address] Performed By: #### 5 7021-8 ####[facility] LABCLIA [id number] [address] LABCLIA [id number] [place] [address] [place] CNOVSPon 01-14-2022 CNOVSP Normal [facility] CNPNon 01-14-2022 CNPN Normal [facility] Comprehensive metabolic 2000 panelon 01-14-2022 Albumin [Mass/Vol] 4.0 g/dL Normal 3.9-4.9 [facility] Comment on above: Order Comment: Speci men Type: BLOOD SPECIMENOrdering Facility: [facility] Address: [address] [place] [address] Performed By: #### 2 532-0, 36266-8 ####[facility] LABCLIA [id number] [place] [address] ALP [Catalytic activity/Vol] 70 U/L Normal 38-113 [facility] Comment on above: Order Comment: Speci men Type: BLOOD SPECIMENOrdering Facility: [facility] Address: [address] [place] [address] Performed By: #### 2 532-0, 11702-6 ####[facility] LABCLIA [id number] [place] [address] ALT [Catalytic activity/Vol] 14 U/L Normal 10-54 [facility] Comment on above: Order Comment: Speci men Type: BLOOD SPECIMENOrdering Facility: [facility] Address: [address] [place] [address] Performed By: #### 2 532-0, ####[facility] LABCLIA [id number] [place] [address] Anion gap [Moles/Vol] 11 mmol/L Normal 9-18 [facility] Comment on above: Order Comment: Speci men Type: BLOOD SPECIMENOrdering Facility: [facility] Address: [address] [place] [address] Performed By: #### 2 532-0, 21174-3 ####[facility] LABCLIA [id number] [place] [address] AST [Catalytic activity/Vol] 10 U/L Low 14-40 [facility] Comment on above: Order Comment: Speci men Type: BLOOD SPECIMENOrdering Facility: [facility] Address: [address] [place] [address] Performed By: #### 2 532-0, 23840-7 ####[facility] LABCLIA [id number] [place] [address] Bilirubin [Mass/Vol] 0.5 mg/dL Normal 0.2-1.3 [facility] Comment on above: Order Comment: Speci men Type: BLOOD SPECIMENOrdering Facility: [facility] Address: [address] [place], [place] [address] Performed By: #### 2 532-0, ####[facility] LABCLIA [id number] [place] [address] Calcium [Mass/Vol] 9.0 mg/dL Normal 8.5-10.2 [facility] Comment on above: Order Comment: Speci men Type: BLOOD SPECIMENOrdering Facility: [facility] Address: [address] [place], [place] [address] Performed By: #### 2 532-0, ####[facility] LABCLIA [id number] [place] [address] Chloride [Moles/Vol] 104 mmol/L Normal 97-105 [facility] Comment on above: Order Comment: Speci men Type: BLOOD SPECIMENOrdering Facility: [facility] Address: [address] [place], [place] [address] Performed By: #### 2 532-0, ####[facility] LABCLIA [id number] [place] [address] CO2 [Moles/Vol] 27 mmol/L Normal 22-30 [facility] Comment on above: Order Comment: Speci men Type: BLOOD SPECIMENOrdering Facility: [facility] Address: [address] [place], [place] [address] Performed By: #### 2 532-0, 27221-5 ####[facility] LABCLIA [id number] [place] [address] Creatinine [Mass/Vol] 2.13 mg/dL High 0.73-1.22 [facility] Comment on above: Order Comment: Speci men Type: BLOOD SPECIMENOrdering Facility: [facility] Address: [address] [place], [place] [address] Performed By: #### 2 532-0, 60308-1 ####[facility] LABCLIA [id number] [place] [address] ESTIMATED GLOMERULAR FILTRATION RATE 30 mL/min/1.73m??? Low >=60 [facility] Comment on above: Order Comment: Davi avendaño Type: BLOOD SPECIMENOrdering Facility: [facility] Address: [address] [place] [address] Result Comment: Faye mated Glomerular Filtration Rate [...] actual GFR. Performed By: #### 2 532-0, 54116-6 ####[facility] LABIA [id number] [place] [address] Glucose [Mass/Vol] 216 mg/dL High 74-99 [facility] Comment on above: Order Comment: Davi avendaño Type: BLOOD SPECIMENOrdering Facility: [facility] Address: [address] [place] [address] Result Comment: The [place] [employer] (ADA) provides guidance for cutoff [...] Standards of Medical Care in Diabetes 2016, [place] [employer]. Diabetes Care. 2016.39(Suppl 1). Performed By: #### 2 532-0, 96152-0 ####[facility] LABIA [id number] [place] [address] Potassium [Moles/Vol] 4.4 mmol/L Normal 3.7-5.1 [facility] Comment on above: Order Comment: Speci men Type: BLOOD SPECIMENOrdering Facility: [facility] Address: [address] [place] [address] Performed By: #### 2 532-0, ####[facility] LABCLIA [id number] [place] [address] Protein [Mass/Vol] 6.1 g/dL Low 6.3-8.0 [facility] Comment on above: Order Comment: Speci men Type: BLOOD SPECIMENOrdering Facility: [facility] Address: [address] [place] [address] Performed By: #### 2 532-0, ####[facility] LABCLIA [id number] [place] [address] Sodium [Moles/Vol] 142 mmol/L Normal 136-144 [facility] Comment on above: Order Comment: Speci men Type: BLOOD SPECIMENOrdering Facility: [facility] Address: [address] [place] [address] Performed By: #### 2 532-0, ####[facility] LABCLIA [id number] [place] [address] Urea nitrogen [Mass/Vol] 26 mg/dL High 9-24 [facility] Comment on above: Order Comment: Speci men Type: BLOOD SPECIMENOrdering Facility: [facility] Address: [address] [place] [address] Performed By: #### 2 532-0, 84569-7 ####[facility] LABCLIA [id number] [place] [address] LDH SerPl-cCncon 01-14-2022 LDH [Catalytic activity/Vol] 214 U/L Normal 135-225 [facility] Comment on above: Order Comment: Speci men Type: BLOOD SPECIMENOrdering Facility: [facility] Address: [address] [place] [address] Performed By: #### 2 532-0, 98449-6 ####[facility] LABCLIA [id number] [place] [address] CBC W Auto Differential pane l (Bld)on 01-07-2022 Basophils (Bld) [#/Vol] 10*3/uL Normal <0.11 [facility] Comment on above: Order Comment: Speci men Type: BLOOD SPECIMENOrdering Facility: [facility] Address: [address] [place] [address] Performed By: #### 5 7021-8 ####[facility] LABIA [id number] [place] [address] Basophils/100 WBC (Bld) 0.9 % Normal [facility] Comment on above: Order Comment: Speci men Type: BLOOD SPECIMENOrdering Facility: [facility] Address: [address] [place] [address] Performed By: #### 5 7021-8 ####[facility] LABIA [id number] [place] [address] Differential cell count method Nom (Bld) Auto Normal [facility] Comment on above: Order Comment: Speci men Type: BLOOD SPECIMENOrdering Facility: [facility] Address: [address] [place] [address] Performed By: #### 5 7021-8 ####[facility] LABCLIA [id number] [place] [address] Eosinophils (Bld) [#/Vol] 10*3/uL Normal <0.46 [facility] Comment on above: Order Comment: Speci men Type: BLOOD SPECIMENOrdering Facility: [facility] Address: [address] [place] [address] Performed By: #### 5 7021-8 ####[facility] LABCLIA [id number] [place] [address] Eosinophils/100 WBC (Bld) 0.0 % Normal [facility] Comment on above: Order Comment: Speci men Type: BLOOD SPECIMENOrdering Facility: [facility] Address: [address] [place] [address] Performed By: #### 5 7021-8 ####[facility] LABCLIA [id number] [place] [address] Erythrocyte distribution width (RBC) [Ratio] 21.7 % High 11.5-15.0 [facility] Comment on above: Order Comment: Speci men Type: BLOOD SPECIMENOrdering Facility: [facility] Address: [address] [place] [address] Performed By: #### 5 7021-8 ####[facility] LABCLIA [id number] [place] [address] Hematocrit (Bld) [Volume fraction] 24.4 % Low 39.0-51.0 [facility] Comment on above: Order Comment: Speci men Type: BLOOD SPECIMENOrdering Facility: [facility] Address: [address] [place] [address] Performed By: #### 5 7021-8 ####[facility] LABCLIA [id number] [place] [address] Hemoglobin (Bld) [Mass/Vol] 7.7 g/dL Low 13.0-17.0 [facility] Comment on above: Order Comment: Speci men Type: BLOOD SPECIMENOrdering Facility: [facility] Address: [address] [place] [address] Performed By: #### 5 7021-8 ####[facility] LABCLIA [id number] [place] [address] IMMATURE GRAN % 0.9 % Normal [facility] Comment on above: Order Comment: Speci men Type: BLOOD SPECIMENOrdering Facility: [facility] Address: [address] [place] [address] Performed By: #### 5 7021-8 ####[facility] LABCLIA [id number] [place] [address] IMMATURE GRAN ABS <0.03 Normal <0.10 [facility] Comment on above: Order Comment: Speci men Type: BLOOD SPECIMENOrdering Facility: [facility] Address: [address] [place] [address] Performed By: #### 5 7021-8 ####[facility] LABCLIA [id number] [place] [address] Lymphocytes (Bld) [#/Vol] 0.78 10*3/uL Low 1.00-4.00 [facility] Comment on above: Order Comment: Speci men Type: BLOOD SPECIMENOrdering Facility: [facility] Address: [address] [place] [address] Performed By: #### 5 7021-8 ####[facility] LABCLIA [id number] [place] [address] Lymphocytes/100 WBC (Bld) 36.6 % Normal [facility] Comment on above: Order Comment: Speci men Type: BLOOD SPECIMENOrdering Facility: [facility] Address: [address] [place] [address] Performed By: #### 5 7021-8 ####[facility] LABCLIA [id number] [place] [address] MCH (RBC) [Entitic mass] 34.5 pg High 26.0-34.0 [facility] Comment on above: Order Comment: Speci men Type: BLOOD SPECIMENOrdering Facility: [facility] Address: [address] [place] [address] Performed By: #### 5 7021-8 ####[facility] LABCLIA [id number] [place] [address] MCHC (RBC) [Mass/Vol] 31.6 g/dL Normal 30.5-36.0 [facility] Comment on above: Order Comment: Speci men Type: BLOOD SPECIMENOrdering Facility: [facility] Address: [address] [place] [address] Performed By: #### 5 7021-8 ####[facility] LABCLIA [id number] [place] [address] MCV (RBC) [Entitic vol] 109.4 fL High 80.0-100.0 [facility] Comment on above: Order Comment: Speci men Type: BLOOD SPECIMENOrdering Facility: [facility] Address: [address] [place] [address] Performed By: #### 5 7021-8 ####[facility] LABCLIA [id number] [place] [address] Monocytes (Bld) [#/Vol] 0.44 10*3/uL Normal <0.87 [facility] Comment on above: Order Comment: Speci men Type: BLOOD SPECIMENOrdering Facility: [facility] Address: [address] [place] [address] Performed By: #### 5 7021-8 ####[facility] LABCLIA [id number] [place] [address] Monocytes/100 WBC (Bld) 20.7 % Normal [facility] Comment on above: Order Comment: Speci men Type: BLOOD SPECIMENOrdering Facility: [facility] Address: [address] [place], [place] [address] Performed By: #### 5 7021-8 ####[facility] LABCLIA [id number] [place] [address] Neutrophils (Bld) [#/Vol] 0.87 10*3/uL Low 1.45-7.50 [facility] Comment on above: Order Comment: Speci men Type: BLOOD SPECIMENOrdering Facility: [facility] Address: [address] [place], [place] [address] Performed By: #### 5 7021-8 ####[facility] LABCLIA [id number] [place] [address] Neutrophils/100 WBC (Bld) 40.9 % Normal [facility] Comment on above: Order Comment: Speci men Type: BLOOD SPECIMENOrdering Facility: [facility] Address: [address] [place] [address] Performed By: #### 5 7021-8 ####[facility] LABCLIA [id number] [place] [address] Nucleated RBC (Bld) [#/Vol] 10*3/uL Normal <0.01 [facility] Comment on above: Order Comment: Speci men Type: BLOOD SPECIMENOrdering Facility: [facility] Address: [address] [place] [address] Performed By: #### 5 7021-8 ####[facility] LABIA [id number] [place] [address] Nucleated RBC/100 WBC (Bld) [Ratio] 0.0 /100 WBC Normal [facility] Comment on above: Order Comment: Speci men Type: BLOOD SPECIMENOrdering Facility: [facility] Address: [address] [place] [address] Performed By: #### 5 7021-8 ####[facility] LABCLIA [id number] [place] [address] Platelet mean volume (Bld) [Entitic vol] 12.3 fL Normal 9.0-12.7 [facility] Comment on above: Order Comment: Speci men Type: BLOOD SPECIMENOrdering Facility: [facility] Address: [address] [place], [place] [address] Performed By: #### 5 7021-8 ####[facility] LABCLIA [id number] [place] [address] Platelets (Bld) [#/Vol] 80 10*3/uL Low 150-400 [facility] Comment on above: Order Comment: Speci men Type: BLOOD SPECIMENOrdering Facility: [facility] Address: [address] [place] [address] Result Comment: [facility] Performed By: #### 5 7021-8 ####[facility] LABCLIA [id number] [place] [address] RBC (Bld) [#/Vol] 2.23 10*6/uL Low 4.20-6.00 [facility] Comment on above: Order Comment: Speci men Type: BLOOD SPECIMENOrdering Facility: [facility] Address: [address] [place] [address] Performed By: #### 5 7021-8 ####[facility] LABIA [id number] [place] [address] WBC (Bld) [#/Vol] 2.13 10*3/uL Low 3.70-11.00 [facility] Comment on above: Order Comment: Speci men Type: BLOOD SPECIMENOrdering Facility: [facility] Address: [address] [place] [address] Performed By: #### 5 7021-8 ####[facility] LABIA [id number] [place] [address] CNNURSEon 01-07-2022 CNNURSE Normal [facility] Comprehensive metabolic 2000 panelon 01-07-2022 Albumin [Mass/Vol] 3.8 g/dL Low 3.9-4.9 [facility] Comment on above: Order Comment: Speci men Type: BLOOD SPECIMENOrdering Facility: [facility] Address: [address] [place] [address] Performed By: #### 2 4323-8, 2532-0 ####[facility] LABIA [id number] [place] [address] ALP [Catalytic activity/Vol] 76 U/L Normal 38-113 [facility] Comment on above: Order Comment: Speci men Type: BLOOD SPECIMENOrdering Facility: [facility] Address: [address] [place] [address] Performed By: #### 2 4323-8, 2531-0 ####[facility] LABCLIA [id number] [place] [address] ALT [Catalytic activity/Vol] 16 U/L Normal 10-54 [facility] Comment on above: Order Comment: Speci men Type: BLOOD SPECIMENOrdering Facility: [facility] Address: [address] [place] [address] Performed By: #### 2 432-8, 2531-0 ####[facility] LABCLIA [id number] [place] [address] Anion gap [Moles/Vol] 7 mmol/L Low 9-18 [facility] Comment on above: Order Comment: Speci men Type: BLOOD SPECIMENOrdering Facility: [facility] Address: [address] [place] [address] Performed By: #### 2 4328, 2531-0 ####[facility] LABCLIA [id number] [place] [address] AST [Catalytic activity/Vol] 10 U/L Low 14-40 [facility] Comment on above: Order Comment: Speci men Type: BLOOD SPECIMENOrdering Facility: [facility] Address: [address] [place], [place] [address] Performed By: #### 2 4328, 2531-0 ####[facility] LABCLIA [id number] [place] [address] Bilirubin [Mass/Vol] 0.6 mg/dL Normal 0.2-1.3 [facility] Comment on above: Order Comment: Speci men Type: BLOOD SPECIMENOrdering Facility: [facility] Address: [address] [place] [address] Performed By: #### 2 432-, 2531-0 ####[facility] LABCLIA [id number] [place] [address] Calcium [Mass/Vol] 8.8 mg/dL Normal 8.5-10.2 [facility] Comment on above: Order Comment: Speci men Type: BLOOD SPECIMENOrdering Facility: [facility] Address: [address] [place], [place] [address] Performed By: #### 2 43238, 2531-0 ####[facility] LABCLIA [id number] [place] [address] Chloride [Moles/Vol] 104 mmol/L Normal 97-105 [facility] Comment on above: Order Comment: Speci men Type: BLOOD SPECIMENOrdering Facility: [facility] Address: [address] [place] [address] Performed By: #### 2 4328, 2531-0 ####[facility] LABCLIA [id number] [place] [address] CO2 [Moles/Vol] 28 mmol/L Normal 22-30 [facility] Comment on above: Order Comment: Speci men Type: BLOOD SPECIMENOrdering Facility: [facility] Address: [address] [place] [address] Performed By: #### 2 43238, 2531-0 ####[facility] LABCLIA [id number] [place] [address] Creatinine [Mass/Vol] 1.68 mg/dL High 0.73-1.22 [facility] Comment on above: Order Comment: Speci men Type: BLOOD SPECIMENOrdering Facility: [facility] Address: [address] [place], [place] [address] Performed By: #### 2 4323-8, 2531-0 ####[facility] LABCLIA [id number] [place] [address] ESTIMATED GLOMERULAR FILTRATION RATE 40 mL/min/1.73m??? Low >=60 [facility] Comment on above: Order Comment: Davi avendaño Type: BLOOD SPECIMENOrdering Facility: [facility] Address: [address] [place], [place] [phone] Result Comment: Fyae mated Glomerular Filtration Rate [...] GFR. Performed By: #### 2 4323-8, 2532-0 ####[facility] LABIA [id number] [place] [address] Glucose [Mass/Vol] 180 mg/dL High 74-99 [facility] Comment on above: Order Comment: Davi avendaño Type: BLOOD SPECIMENOrdering Facility: [facility] Address: [address] [place], [place] [phone] Result Comment: The [place] [employer] (ADA) provides guidance for cutoff [...] Standards of Medical Care in Diabetes 2016, [place] [employer]. Diabetes Care. 2016.39(Suppl 1). Performed By: #### 2 4323-8, 253-0 ####[facility] LABIA [id number] [place] [address] Potassium [Moles/Vol] 4.4 mmol/L Normal 3.7-5.1 [facility] Comment on above: Order Comment: Davi avendaño Type: BLOOD SPECIMENOrdering Facility: [facility] Address: [address] [place], [place] [address] Performed By: #### 2 4323-8, 2531-0 ####[facility] LABCLIA [id number] [place] [address] Protein [Mass/Vol] 6.0 g/dL Low 6.3-8.0 [facility] Comment on above: Order Comment: Speci men Type: BLOOD SPECIMENOrdering Facility: [facility] Address: [address] [place] [address] Performed By: #### 2 432-8, 2531-0 ####[facility] LABCLIA [id number] [place] [address] Sodium [Moles/Vol] 139 mmol/L Normal 136-144 [facility] Comment on above: Order Comment: Speci men Type: BLOOD SPECIMENOrdering Facility: [facility] Address: [address] [place] [address] Performed By: #### 2 4328, 2531-0 ####[facility] LABIA [id number] [place] [address] Urea nitrogen [Mass/Vol] 11 mg/dL Normal 9-24 [facility] Comment on above: Order Comment: Speci men Type: BLOOD SPECIMENOrdering Facility: [facility] Address: [address] [place] [address] Performed By: #### 2 4328, 2531-0 ####[facility] [facility] LABCLIA [id number] [place] [address] LDH SerPl-cCncon 01-07-2022 LDH [Catalytic activity/Vol] 211 U/L Normal 135-225 [facility] Comment on above: Order Comment: Speci men Type: BLOOD SPECIMENOrdering Facility: [facility] Address: [address] [place] [address] Performed By: #### 2 4323-8, 2531-0 ####[facility] LABCLIA [id number] [place] [address] Cardiovascular Lab Reporton 11-29-2021 Cardiovascular Lab Report [facility] MR #: [id number] Department of Physician: Valentín Lee MD Division of Service Date: 11/21/2021 Cardiology Birthdate: 1940 Adult Cardiovascular Room #: 4AB [id number] [facility] [address] [place] [address] Cardiovascular Laboratory Report PROCEDURES PERFORMED: Right heart [...] Lee MD Date Trans: 11/29/2021 08:03 P/simon [id number] cc: Flash Pearl M.D. 1 [facility], [facility] A [facility] [address] Normal [facility] POC GLUCOSE LABon 11-25-2021 Glucose [Mass/Vol] 210 mg/dL High 70-100 [facility] Comment on above: Performed By: #### 8 5499 #### [facility] [address] [place] [address], [facility] Glucose [Mass/Vol] 203 mg/dL High 70-100 [facility] Comment on above: Performed By: #### 8 5499 #### [facility] [address] [place] [address], [facility] Glucose [Mass/Vol] 202 mg/dL High 70-100 [facility] Comment on above: Performed By: #### 8 5499 #### [facility] [address] [place] [address], [facility] BNP (B-TYPE NATRIURETIC PEPT IZAIAH)on 11-24-2021 Natriuretic peptide B (Bld) [Mass/Vol] 685 pg/mL High 0-100 [facility] Comment on above: Order Comment: No: D o not add to previous draw Result Comment: Give n the appropriate clinical setting a BNP result of >100 pg/mL indicates congestive heart failure. Performed By: #### 8 5123 ####[facility] [place] [address], [facility] CBC W/DIFFon 11-24-2021 ABS NEUTROPHILS 2.5 10*3/uL Normal 1.6-7.6 [facility] Comment on above: Order Comment: RIGHT BICEP Performed By: #### 3 0313 #### [facility] [address] [place] [address], [facility] ANISO Moderate Normal [facility] Comment on above: Order Comment: RIGHT BICEP Performed By: #### 3 0313 #### [facility] [address] [place] [id number], [place] Basophils (Bld) [#/Vol] 0.0 10*3/uL Normal 0.0-0.2 [facility] Comment on above: Order Comment: RIGHT BICEP Performed By: #### 3 0313 #### [facility] [address] [place] [address], [facility] Basophils/100 WBC (Bld) 0.9 % Normal 0.0-1.0 [facility] Comment on above: Order Comment: RIGHT BICEP Performed By: #### 3 3 #### [facility] [address] [place] [address], [facility] Eosinophils (Bld) [#/Vol] 0.0 10*3/uL Normal 0.0-0.5 [facility] Comment on above: Order Comment: RIGHT BICEP Performed By: #### 3 3 #### [facility] [address] [place] [address], [facility] Eosinophils/100 WBC (Bld) 0.0 % Normal 0.0-6.0 [facility] Comment on above: Order Comment: RIGHT BICEP Performed By: #### 3 3 #### [facility] [address] Erythrocyte distribution width (RBC) [Ratio] 22.0 % High 11.5-15.0 [facility] Comment on above: Order Comment: RIGHT BICEP Performed By: #### 3 3 #### [facility] [address] [facility] [place] [address], [facility] GIANT PLATELETS Present Normal [facility] Comment on above: Order Comment: RIGHT BICEP Performed By: #### 3 3 #### [facility] [address] [place] [address], [facility] Hematocrit (Bld) [Volume fraction] 27.9 % Low 39.0-50.0 [facility] Comment on above: Order Comment: RIGHT BICEP Performed By: #### 3 3 #### [facility] [address] [place] [address], [facility] Hemoglobin (Bld) [Mass/Vol] 8.8 g/dL Low 13.0-17.0 [facility] Comment on above: Order Comment: RIGHT BICEP Performed By: #### 3 0313 #### [facility] [address] [place] [address], [facility] IMM PLATELET FRAC 14.2 % High 0.8-6.3 [facility] Comment on above: Order Comment: RIGHT BICEP Performed By: #### 3 0313 #### [facility] [address] [place] [place] [address], [facility] Lymphocytes (Bld) [#/Vol] 0.5 10*3/uL Low 1.2-4.0 [facility] Comment on above: Order Comment: RIGHT BICEP Performed By: #### 3 0313 #### [facility] [address] [place] [place] [address], [facility] Lymphocytes/100 WBC (Bld) 14.2 % Low 20.0-45.0 [facility] Comment on above: Order Comment: RIGHT BICEP Performed By: #### 3 0313 #### [facility] [address] [place] [address], [facility] MACRO Slight Normal [facility] Comment on above: Order Comment: RIGHT BICEP Performed By: #### 3 0313 #### [facility] [address] [facility] [place] [id number], [facility] MCH (RBC) [Entitic mass] 34.6 pg High 27.0-33.0 [facility] Comment on above: Order Comment: RIGHT BICEP Performed By: #### 3 0313 #### [facility] [address] [place] [id number], [facility] MCHC (RBC) [Mass/Vol] 31.5 g/dL Low 32.0-35.0 [facility] Comment on above: Order Comment: RIGHT BICEP Performed By: #### 3 0313 #### [facility] [address] [place] [address], [facility] MCV (RBC) [Entitic vol] 109.8 fL High 82.0-98.0 [facility] Comment on above: Order Comment: RIGHT BICEP Performed By: #### 3 3 #### [facility] [address] [place] [address], [facility] Monocytes (Bld) [#/Vol] 0.4 10*3/uL Normal 0.1-1.0 [facility] Comment on above: Order Comment: RIGHT BICEP Performed By: #### 3 3 #### [facility] [address] [place] [address], [facility] MONOS 11.3 % Normal 5.0-12.0 [facility] Comment on above: Order Comment: RIGHT BICEP Performed By: #### 3 3 #### [facility] [address] [place] [address], [facility] MYELOS 6.6 % High 0.0-0.0 [facility] Comment on above: Order Comment: RIGHT BICEP Performed By: #### 3 3 #### [facility] [address] [place] [address], [facility] Neutrophils/100 WBC (Bld) 67.0 % Normal 40.0-72.0 [facility] Comment on above: Order Comment: RIGHT BICEP Performed By: #### 3 3 #### [facility] [address] [place] [address], [place] Nucleated RBC/100 WBC (Bld) [Ratio] 1 % High 0-0 [facility] Comment on above: Order Comment: RIGHT BICEP Performed By: #### 3 3 #### [facility] [address] [place] [address], [place] PLAT CNT 186 10*3/uL Normal 150-400 [facility] Comment on above: Order Comment: RIGHT BICEP Performed By: #### 3 0313 #### [facility] [address] [place] [address], [facility] POIK Slight Normal [facility] Comment on above: Order Comment: RIGHT BICEP Performed By: #### 3 0313 #### [facility] [address] [place] [address], [facility] RBC (Bld) [#/Vol] 2.54 10*6/uL Low 4.20-5.70 [facility] Comment on above: Order Comment: RIGHT BICEP Performed By: #### 3 0313 #### [facility] [address] [place] [address], [facility] WBC (Bld) [#/Vol] 3.77 10*3/uL Low 4.00-10.60 [facility] Comment on above: Order Comment: RIGHT BICEP Performed By: #### 3 0313 #### [facility] [address] [place] [address], [facility] COMP METABOLIC PANELon 11-24 Albumin [Mass/Vol] 3.6 g/dL Normal 3.5-5.7 [facility] Comment on above: Order Comment: Evalu ate for Cardiomegaly Performed By: #### 0 0121, 23646, 99547 ####[facility] [place] [address], [facility] ALKALINE PHOSPH 44 IU/L Normal 34-104 [facility] Comment on above: Order Comment: Evalu ate for Cardiomegaly Performed By: #### 0 0121, 68789, 27484 ####[facility] [place] [address], [facility] ALT [Catalytic activity/Vol] 36 U/L Normal 7-52 [facility] Comment on above: Order Comment: Evalu ate for Cardiomegaly Performed By: #### 0 0121, 52059, 70442 ####[facility] [place] [address], [place] AST [Catalytic activity/Vol] 23 U/L Normal 13-39 [facility] Comment on above: Order Comment: Evalu ate for Cardiomegaly Performed By: #### 0 0121, 68551, 86116 ####[facility] [place] [address], [place] Bilirubin [Mass/Vol] 0.8 mg/dL Normal 0.3-1.0 [facility] Comment on above: Order Comment: Evalu ate for Cardiomegaly Performed By: #### 0 0121, 61969, 62679 ####[facility] [place] [address], [place] Calcium [Mass/Vol] 8.8 mg/dL Normal 8.6-10.3 [facility] Comment on above: Order Comment: Evalu ate for Cardiomegaly Performed By: #### 0 0121, 63348, 35915 ####[facility] [place] [address], [place] Chloride [Moles/Vol] 103 mmol/L Normal 98-107 [facility] Comment on above: Order Comment: Evalu ate for Cardiomegaly Performed By: #### 0 0121, 20040, 67791 ####[facility] [place] [address], [place] CO2 [Moles/Vol] 30 mmol/L Normal 21-31 [facility] Comment on above: Order Comment: Evalu ate for Cardiomegaly Performed By: #### 0 0121, 31092, 56310 ####[facility] [place] [address], [place] Creatinine [Mass/Vol] 1.54 mg/dL High 0.70-1.30 [facility] Comment on above: Order Comment: Evalu ate for Cardiomegaly Performed By: #### 0 0121, 16010, 32638 ####[facility] [place] [address], [facility] eGFR- 53 ml/min/1.73sq m Abnormal >60 [facility] Comment on above: Order Comment: Evalu ate for Cardiomegaly Result Comment: Calc ulation may not be valid for patients over 70 years Performed By: #### 0 0121, 47667, 76089 ####[facility] [place] [address], [place] eGFR- non- 43 ml/min/1.73sq m Abnormal >60 [facility] Comment on above: Order Comment: Evalu ate for Cardiomegaly Result Comment: Calc ulation may not be valid for patients over 70 years Performed By: #### 0 0121, 09057, 21285 ####[facility] [place] [address], [place] Glucose [Mass/Vol] 173 mg/dL High 70-100 [facility] Comment on above: Order Comment: Evalu ate for Cardiomegaly Performed By: #### 0 0121, 51171, 00974 ####[facility] [place] [address], [place] Potassium [Moles/Vol] 3.5 mmol/L Normal 3.5-5.1 [facility] Comment on above: Order Comment: Evalu ate for Cardiomegaly Performed By: #### 0 0121, 59494, [id number] ####[facility] [place] [address], [place] Protein [Mass/Vol] 6.2 g/dL Normal 6.0-8.3 [facility] Comment on above: Order Comment: Evalu ate for Cardiomegaly Performed By: #### 0 0121, 18588, 00673 ####[facility] [place] [address], [place] Sodium [Moles/Vol] 143 mmol/L Normal 136-145 [facility] Comment on above: Order Comment: Evalu ate for Cardiomegaly Performed By: #### 0 0121, 50733, [id number] ####[facility] [place] [address], [facility] Urea nitrogen [Mass/Vol] 41 mg/dL High 7-25 [facility] Comment on above: Order Comment: Evalu ate for Cardiomegaly Performed By: #### 0 0121, 42248, 72656 ####[facility] [place] [address], [facility] LIPID PROFILEon 11-24-2021 Cholesterol [Mass/Vol] 69 mg/dL Low 120-200 [facility] Comment on above: Result Comment: CHOL ESTEROL REFERENCE RANGE: 20 YEARS AND OLDER CARDIOVASCULAR RISK Less than 200 mg/dl Low Risk 200 to 239 mg/dl Borderline Risk 240 mg/dl and greater High Risk Performed By: #### 0 0121, 02376, 36995 ####[facility] [place] [address], [facility] Cholesterol in HDL [Mass/Vol] 21 mg/dL Low 23-92 [facility] Comment on above: Result Comment: Slig ht variation in normal range could be due to gender and/or age. HDL CHOLESTEROL REFERENCE RANGE: 20 years and older Cardiovascular Risk > or =60 mg/dL Desirable 40 TO 59 mg/dL Low Risk <40 mg/dL High Risk Performed By: #### 0 0121, 48882, 43101 ####[facility] [place] [address], [place] Cholesterol in LDL [Mass/Vol] 21 mg/dL Normal 0-130 [facility] Comment on above: Result Comment: LDL IS A CALCULATION LDL IS ONLY VALID IF THE TRIG IS LESS THAN 400. Performed By: #### 0 0121, 89542, 59327 ####[facility] [place] [address], [place] Cholesterol.total/Cho lesterol in HDL [Mass ratio] 3.3 {ratio} Normal .0-4.5 [facility] Comment on above: Performed By: #### 0 0121, 54486, 74436 ####[facility] [facility] NON-HDL CHOLESTEROL 48 mg/dL Normal [facility] Comment on above: Performed By: #### 0 0121, 41312, 89411 ####[facility] [facility] Triglyceride [Mass/Vol] 134 mg/dL Normal 40-149 [facility] Comment on above: Result Comment: TRIG LYCERIDE REFERENCE RANGE: 20 YEARS AND OLDER CARDIOVASCULAR RISK LESS THAN 150 mg/dl LOW RISK 150 TO 199 mg/dl BORDERLINE RISK 200 mg/dl AND GREATER HIGH RISK Performed By: #### 0 0121, 45694, 22505 ####[facility] [facility].[address] VLDL CHOL 27 mg/dL Normal 0-40 [facility] Comment on above: Performed By: #### 0 0121, 75300, 71909 ####[facility] [facility] [place] [address], [facility] MAGNESIUM BLOODon 11-24-2021 Magnesium [Mass/Vol] 2.2 mg/dL Normal 1.9-2.7 [facility] Comment on above: Order Comment: Evalu ate for Cardiomegaly Performed By: #### 0 0121, 42446, 77146 ####[facility] [facility] [place] [address], [facility] POC GLUCOSE LABon 11-24-2021 Glucose [Mass/Vol] 194 mg/dL High 70-100 [facility] Comment on above: Performed By: #### 3 0313 #### [facility] [address] [place] [address], [facility] Glucose [Mass/Vol] 222 mg/dL High 70-100 [facility] Comment on above: Performed By: #### 3 2044 #### [facility] [address] [place] [address], [place] Glucose [Mass/Vol] 193 mg/dL High 70-100 [facility] Comment on above: Performed By: #### 8 5499 #### [facility] [address] [place] [address], [place] Glucose [Mass/Vol] 196 mg/dL High 70-100 [facility] Comment on above: Performed By: #### 3 4 #### [facility] [address] [place] [address], [place] COMP METABOLIC PANELon 11-23 Albumin [Mass/Vol] 3.3 g/dL Low 3.5-5.7 [facility] Comment on above: Order Comment: No: D o not add to previous draw Performed By: #### 3 0477 #### [facility] [address] [place] [address], [place] ALKALINE PHOSPH 40 IU/L Normal 34-104 [facility] Comment on above: Order Comment: No: D o not add to previous draw Performed By: #### 3 0477 #### [facility] [address] [place] [address], [place] ALT [Catalytic activity/Vol] 34 U/L Normal 7-52 [facility] Comment on above: Order Comment: No: D o not add to previous draw Performed By: #### 3 0477 #### [facility] [address] [place] [address], [place] AST [Catalytic activity/Vol] 21 U/L Normal 13-39 [facility] Comment on above: Order Comment: No: D o not add to previous draw Performed By: #### 3 0477 #### [facility] [address] [place] [address], [place] Bilirubin [Mass/Vol] 0.8 mg/dL Normal 0.3-1.0 [facility] Comment on above: Order Comment: No: D o not add to previous draw Performed By: #### 3 0477 #### [facility] [address] [place] [address], [place] Calcium [Mass/Vol] 8.6 mg/dL Normal 8.6-10.3 [facility] Comment on above: Order Comment: No: D o not add to previous draw Performed By: #### 3 0477 #### [facility] [address] [place] [address], [place] Chloride [Moles/Vol] 103 mmol/L Normal 98-107 [facility] Comment on above: Order Comment: No: D o not add to previous draw Performed By: #### 3 0477 #### [facility] [address] [place] [address], [place] CO2 [Moles/Vol] 30 mmol/L Normal 21-31 [facility] Comment on above: Order Comment: No: D o not add to previous draw Performed By: #### 3 0477 #### [facility] [address] [place] [address], [place] Creatinine [Mass/Vol] 1.88 mg/dL High 0.70-1.30 [facility] Comment on above: Order Comment: No: D o not add to previous draw Performed By: #### 3 0477 #### [facility] [address] [place] [address], [place] eGFR- 42 ml/min/1.73sq m Abnormal >60 [facility] Comment on above: Order Comment: No: D o not add to previous draw Result Comment: Calc ulation may not be valid for patients over 70 years Performed By: #### 3 0477 #### [facility] [address] [place] [address], [place] eGFR- non- 35 ml/min/1.73sq m Abnormal >60 [facility] Comment on above: Order Comment: No: D o not add to previous draw Result Comment: Calc ulation may not be valid for patients over 70 years Performed By: #### 3 0477 #### [facility] [address] [place] [address], [place] Glucose [Mass/Vol] 140 mg/dL High 70-100 [facility] Comment on above: Order Comment: No: D o not add to previous draw Performed By: #### 3 0477 #### [facility] [address] [place] [address], [place] Potassium [Moles/Vol] 3.5 mmol/L Normal 3.5-5.1 [facility] Comment on above: Order Comment: No: D o not add to previous draw Performed By: #### 3 0477 #### [facility] [address] [place] [address], [place] Protein [Mass/Vol] 5.9 g/dL Low 6.0-8.3 [facility] Comment on above: Order Comment: No: D o not add to previous draw Performed By: #### 3 0477 #### [facility] [address] [place] [address], [place] Sodium [Moles/Vol] 143 mmol/L Normal 136-145 [facility] Comment on above: Order Comment: No: D o not add to previous draw Performed By: #### 3 0477 #### [facility] [address] [place] [address], [place] Urea nitrogen [Mass/Vol] 47 mg/dL High 7-25 [facility] Comment on above: Order Comment: No: D o not add to previous draw Performed By: #### 3 0477 #### [facility] [address] [place] [address], [place] HEMOGLOBINon 11-23-2021 Hemoglobin (Bld) [Mass/Vol] 8.7 g/dL Low 13.0-17.0 [facility] Comment on above: Order Comment: pleas e start lab draw at 5pm followed by q12 at 5am tomorrow No: Do not add to previous draw Performed By: #### 9 2088 #### [facility] [address] [place] [address], [facility] Hemoglobin (Bld) [Mass/Vol] 8.3 g/dL Low 13.0-17.0 [facility] Comment on above: Order Comment: pleas e start lab draw at 5pm followed by q12 at 5am tomorrow Unknown Performed By: #### 9 2088 #### [facility] [address] [facility] [place] [address], [facility] MAGNESIUM BLOODon 11-23-2021 Magnesium [Mass/Vol] 2.2 mg/dL Normal 1.9-2.7 [facility] Comment on above: Order Comment: No: D o not add to previous draw Performed By: #### 3 0477 #### [facility] [address] [facility] [place] [address], [facility] POC GLUCOSE LABon 11-23-2021 Glucose [Mass/Vol] 159 mg/dL High 70-100 [facility] Comment on above: Performed By: #### 3 0313 #### [facility] [address] [facility] [place] [address], [place] Glucose [Mass/Vol] 226 mg/dL High 70-100 [facility] Comment on above: Performed By: #### 8 5499 #### [facility] [address] [facility] [place] [address], [facility] PORTABLE CHEST 1 VIEWon 10-27 PORTABLE CHEST 1 VIEW [facility] Department of Radiology [address] [place] [id number] Patient Name: SANDIP BROUSSARD : 1940 Sex: M Age: Race: White Pt. Location: [address] [place] [address] Patient Status: I Ordered Date: 11/23/2021 1:10:00 PM Completed Date: 11/23/2021 01:28 PM Requesting Provider: ROBERT CLAY Attending Provider: LUIS RUIZ Report Copy To: Signs & Symptoms: O2 Desaturation History: Comments: Cardiomegaly Exam: PORTABLE CHEST 1 VIEW PORTABLE CHEST 1 VIEW 11/23/2021 1:28 PM [...] cardiomegaly. Electronically signed: Jasper Plunkett. Transcribed by: [email or web address], User Resident: Electronically Signed by: JASPER PLUNKETT @ 11/23/2021 02:34 PM Normal [facility] Comment on above: Order Comment: Cardi omegaly COMP METABOLIC PANELon 11-22 Albumin [Mass/Vol] 3.3 g/dL Low 3.5-5.7 [facility] Comment on above: Order Comment: No: D o not add to previous draw Performed By: #### 1 0070, 30292 ####[facility] ALKALINE PHOSPH 37 IU/L Normal 34-104 [facility] Comment on above: Order Comment: No: D o not add to previous draw Performed By: #### 1 69, 71037 ####[facility] [place] [address], [facility] ALT [Catalytic activity/Vol] 32 U/L Normal 7-52 [facility] Comment on above: Order Comment: No: D o not add to previous draw Performed By: #### 1 69, 65103 ####[facility] [place] [address], [place] AST [Catalytic activity/Vol] 17 U/L Normal 13-39 [facility] Comment on above: Order Comment: No: D o not add to previous draw Performed By: #### 1 69, ####[facility] [place] [address], [place] Bilirubin [Mass/Vol] 0.9 mg/dL Normal 0.3-1.0 [facility] Comment on above: Order Comment: No: D o not add to previous draw Performed By: #### 1 69, 58481 ####[facility] [place] [address], [place] Calcium [Mass/Vol] 8.3 mg/dL Low 8.6-10.3 [facility] Comment on above: Order Comment: No: D o not add to previous draw Performed By: #### 1 69, 32411 ####[facility] [place] [address], [place] Chloride [Moles/Vol] 103 mmol/L Normal 98-107 [facility] Comment on above: Order Comment: No: D o not add to previous draw Performed By: #### 1 69, 45739 ####[facility] [place] [address], [place] CO2 [Moles/Vol] 28 mmol/L Normal 21-31 [facility] Comment on above: Order Comment: No: D o not add to previous draw Performed By: #### 1 0, 61145 ####[facility] [place] [address], [facility] Creatinine [Mass/Vol] 1.92 mg/dL High 0.70-1.30 [facility] Comment on above: Order Comment: No: D o not add to previous draw Performed By: #### 1 69, 62993 ####[facility] [place] [address], [facility] eGFR- 41 ml/min/1.73sq m Abnormal >60 [facility] Comment on above: Order Comment: No: D o not add to previous draw Result Comment: Calc ulation may not be valid for patients over 70 years Performed By: #### 1 69, 87338 ####[facility] [place] [address], [facility] eGFR- non- 34 ml/min/1.73sq m Abnormal >60 [facility] Comment on above: Order Comment: No: D o not add to previous draw Result Comment: Calc ulation may not be valid for patients over 70 years Performed By: #### 1 69, 56322 ####[facility] [place] [address], [facility] Glucose [Mass/Vol] 128 mg/dL High 70-100 [facility] Comment on above: Order Comment: No: D o not add to previous draw Performed By: #### 1 0, 41712 ####[facility] [place] [address], [facility] Potassium [Moles/Vol] 3.5 mmol/L Normal 3.5-5.1 [facility] Comment on above: Order Comment: No: D o not add to previous draw Performed By: #### 1 0, 19798 ####[facility] Protein [Mass/Vol] 5.7 g/dL Low 6.0-8.3 [facility] Comment on above: Order Comment: No: D o not add to previous draw Performed By: #### 1 0070, 41235 ####[facility] [place] [address], [facility] Sodium [Moles/Vol] 142 mmol/L Normal 136-145 [facility] Comment on above: Order Comment: No: D o not add to previous draw Performed By: #### 1 0, 26966 ####[facility] Urea nitrogen [Mass/Vol] 51 mg/dL High 7-25 [facility] Comment on above: Order Comment: No: D o not add to previous draw Performed By: #### 1 0, 61868 ####[facility] HEMOGLOBINon 11-22-2021 Hemoglobin (Bld) [Mass/Vol] 9.1 g/dL Low 13.0-17.0 [facility] Comment on above: Order Comment: meredith holden start lab draw at 5pm followed by q12 at 5am tomorrow No: Do not add to previous draw Performed By: #### 9 2089 #### [facility] [address] [place] [address], [facility] MAGNESIUM BLOODon 11-22-2021 Magnesium [Mass/Vol] 2.1 mg/dL Normal 1.9-2.7 [facility] Comment on above: Order Comment: No: D o not add to previous draw Performed By: #### 1 0070, 84739 ####[facility] [place] [address], [facility] POC GLUCOSE LABon 11-22-2021 Glucose [Mass/Vol] 155 mg/dL High 70-100 [facility] Comment on above: Performed By: #### 8 5499 #### [facility] [address] [place] [address], [facility] Glucose [Mass/Vol] 227 mg/dL High 70-100 [facility] Comment on above: Performed By: #### 8 5499 #### [facility] [address] [place] [address], [facility] Glucose [Mass/Vol] 141 mg/dL High 70-100 [facility] Comment on above: Performed By: #### 3 2044 #### [facility] [address] [facility] [place] [address], [facility] UFH HEPARIN ASSAYon 11-23-19 22 UNFRACTIONATED HEPARIN 0.20 IU/mL Low 0.30-0.70 [facility] Comment on above: Result Comment: Brittani roxaban and Apixaban will interfere with the anti Xa assay used to monitor UFH and LMWH. Performed By: #### 5 0103 #### [facility] [address] [facility] [place] [place] [address], [facility] CBC W/DIFFon 11-21-2021 ABS NEUTROPHILS 4.3 10*3/uL Normal 1.6-7.6 [facility] Comment on above: Order Comment: RIGHT BICEP Performed By: #### 3 0313 #### [facility] [address] [facility] [place] [address], [facility] ANISO Moderate Normal [facility] Comment on above: Order Comment: RIGHT BICEP Performed By: #### 3 0313 #### [facility] [address] [facility] [place] [address], [facility] Basophils (Bld) [#/Vol] 0.0 10*3/uL Normal 0.0-0.2 [facility] Comment on above: Order Comment: RIGHT BICEP Performed By: #### 3 0313 #### [facility] [address] [place] [address], [facility] Basophils/100 WBC (Bld) 0.0 % Normal 0.0-1.0 [facility] Comment on above: Order Comment: RIGHT BICEP Performed By: #### 3 0313 #### [facility] [address] [place] [address], [facility] Eosinophils (Bld) [#/Vol] 0.0 10*3/uL Normal 0.0-0.5 [facility] Comment on above: Order Comment: RIGHT BICEP Performed By: #### 3 0313 #### [facility] [address] [place] [address], [facility] Eosinophils/100 WBC (Bld) 0.0 % Normal 0.0-6.0 [facility] Comment on above: Order Comment: RIGHT BICEP Performed By: #### 3 0313 #### [facility] [address] [place] [address], [facility] Erythrocyte distribution width (RBC) [Ratio] 25.5 % High 11.5-15.0 [facility] Comment on above: Order Comment: RIGHT BICEP Performed By: #### 3 0313 #### [facility] [address] [place] [address], [facility] GIANT PLATELETS Present Normal [facility] Comment on above: Order Comment: RIGHT BICEP Performed By: #### 3 0313 #### [facility] [address] [place] [address], [facility] Hematocrit (Bld) [Volume fraction] 25.6 % Low 39.0-50.0 [facility] Comment on above: Order Comment: RIGHT BICEP Performed By: #### 3 0313 #### [facility] [address] [place] [address], [facility] Hemoglobin (Bld) [Mass/Vol] 8.7 g/dL Low 13.0-17.0 [facility] Comment on above: Order Comment: RIGHT BICEP Performed By: #### 3 3 #### [facility] [address] IMM PLATELET FRAC 18.9 % High 0.8-6.3 [facility] Comment on above: Order Comment: RIGHT BICEP Performed By: #### 3 0313 #### [facility] [address] [place] [address], [facility] Lymphocytes (Bld) [#/Vol] 0.4 10*3/uL Low 1.2-4.0 [facility] Comment on above: Order Comment: RIGHT BICEP Performed By: #### 3 0313 #### [facility] [address] [place] [address], [facility] Lymphocytes/100 WBC (Bld) 7.7 % Low 20.0-45.0 [facility] Comment on above: Order Comment: RIGHT BICEP Performed By: #### 3 3 #### [facility] [address] [facility] [place] [address], [facility] MACRO Slight Normal [facility] Comment on above: Order Comment: RIGHT BICEP Performed By: #### 3 0313 #### [facility] [address] [facility] [place] [address], [facility] MCH (RBC) [Entitic mass] 35.2 pg High 27.0-33.0 [facility] Comment on above: Order Comment: RIGHT BICEP Performed By: #### 3 0313 #### [facility] [address] [place] [address], [facility] MCHC (RBC) [Mass/Vol] 34.0 g/dL Normal 32.0-35.0 [facility] Comment on above: Order Comment: RIGHT BICEP Performed By: #### 3 0313 #### [facility] [address] [place] [address], [facility] MCV (RBC) [Entitic vol] 103.6 fL High 82.0-98.0 [facility] Comment on above: Order Comment: RIGHT BICEP Performed By: #### 3 0313 #### [facility] [address] [place] [address], [facility] METAMYELO 1.9 % High 0.0-0.0 [facility] Comment on above: Order Comment: RIGHT BICEP Performed By: #### 3 3 #### [facility] [address] [place] [address], [facility] Monocytes (Bld) [#/Vol] 0.7 10*3/uL Normal 0.1-1.0 [facility] Comment on above: Order Comment: RIGHT BICEP Performed By: #### 3 3 #### [facility] [address] [facility] [place] [address], [facility] MONOS 12.5 % High 5.0-12.0 [facility] Comment on above: Order Comment: RIGHT BICEP Performed By: #### 3 3 #### [facility] [address] [facility] [place] [address], [facility] MYELOS 1.0 % High 0.0-0.0 [facility] Comment on above: Order Comment: RIGHT BICEP Performed By: #### 3 0313 #### [facility] [address] [facility] [place] [address], [facility] Neutrophils/100 WBC (Bld) 76.9 % High 40.0-72.0 [facility] Comment on above: Order Comment: RIGHT BICEP Performed By: #### 3 0313 #### [facility] [address] [facility] [place] [address], [facility] Nucleated RBC/100 WBC (Bld) [Ratio] 1 % High 0-0 [facility] Comment on above: Order Comment: RIGHT BICEP Performed By: #### 3 0313 #### [facility] [address] [place] [id number], [facility] PLAT CNT 122 10*3/uL Low 150-400 [facility] Comment on above: Order Comment: RIGHT BICEP Performed By: #### 3 0313 #### [facility] [address] [place] [address], [place] POIK Slight Normal [facility] Comment on above: Order Comment: RIGHT BICEP Performed By: #### 3 0313 #### [facility] [address] [place] [address], [place] RBC (Bld) [#/Vol] 2.47 10*6/uL Low 4.20-5.70 [facility] Comment on above: Order Comment: RIGHT BICEP Performed By: #### 3 0313 #### [facility] [address] [place] [address], [place] WBC (Bld) [#/Vol] 5.62 10*3/uL Normal 4.00-10.60 [facility] Comment on above: Order Comment: RIGHT BICEP Performed By: #### 3 0313 #### [facility] [address] [place] [address], [facility] COMP METABOLIC PANELon 11-21 Albumin [Mass/Vol] 3.3 g/dL Low 3.5-5.7 [facility] Comment on above: Order Comment: No: D o not add to previous draw Performed By: #### 8 6001 #### [facility] [address] [place] [address], [facility] ALKALINE PHOSPH 36 IU/L Normal 34-104 [facility] Comment on above: Order Comment: No: D o not add to previous draw Performed By: #### 8 6001 #### [facility] [address] [place] [address], [place] ALT [Catalytic activity/Vol] 46 U/L Normal 7-52 [facility] Comment on above: Order Comment: No: D o not add to previous draw Performed By: #### 8 6001 #### [facility] [address] [place] [address], [place] AST [Catalytic activity/Vol] 24 U/L Normal 13-39 [facility] Comment on above: Order Comment: No: D o not add to previous draw Performed By: #### 8 6001 #### [facility] [address] [place] [address], [place] Bilirubin [Mass/Vol] 1.0 mg/dL Normal 0.3-1.0 [facility] Comment on above: Order Comment: No: D o not add to previous draw Performed By: #### 8 6001 #### [facility] [address] [place] [address], [place] Calcium [Mass/Vol] 8.4 mg/dL Low 8.6-10.3 [facility] Comment on above: Order Comment: No: D o not add to previous draw Performed By: #### 8 6001 #### [facility] [address] [place] [address], [place] Chloride [Moles/Vol] 103 mmol/L Normal 98-107 [facility] Comment on above: Order Comment: No: D o not add to previous draw Performed By: #### 8 6001 #### [facility] [address] [place] [address], [place] CO2 [Moles/Vol] 31 mmol/L Normal 21-31 [facility] [facility] Comment on above: Order Comment: No: D o not add to previous draw Performed By: #### 8 6001 #### [facility] [address] [place] [address], [place] Creatinine [Mass/Vol] 2.18 mg/dL High 0.70-1.30 [facility] Comment on above: Order Comment: No: D o not add to previous draw Performed By: #### 8 6001 #### [facility] [address] [place] [address], [place] eGFR- 35 ml/min/1.73sq m Abnormal >60 [facility] Comment on above: Order Comment: No: D o not add to previous draw Result Comment: Calc ulation may not be valid for patients over 70 years Performed By: #### 8 6001 #### [facility] [address] [place] [address], [place] eGFR- non- 29 ml/min/1.73sq m Abnormal >60 [facility] Comment on above: Order Comment: No: D o not add to previous draw Result Comment: Calc ulation may not be valid for patients over 70 years Performed By: #### 8 6001 #### [facility] [address] [place] [address], [place] Glucose [Mass/Vol] 140 mg/dL High 70-100 [facility] Comment on above: Order Comment: No: D o not add to previous draw Performed By: #### 8 6001 #### [facility] [address] [place] [address], [place] Potassium [Moles/Vol] 3.3 mmol/L Low 3.5-5.1 [facility] Comment on above: Order Comment: No: D o not add to previous draw Performed By: #### 8 6001 #### [facility] [address] [place] [address], [place] Protein [Mass/Vol] 5.9 g/dL Low 6.0-8.3 [facility] Comment on above: Order Comment: No: D o not add to previous draw Performed By: #### 8 6001 #### [facility] [address] [place] [address], [place] Sodium [Moles/Vol] 143 mmol/L Normal 136-145 [facility] Comment on above: Order Comment: No: D o not add to previous draw Performed By: #### 8 6001 #### [facility] [address] [place] [address], [place] Urea nitrogen [Mass/Vol] 58 mg/dL High 7-25 [facility] Comment on above: Order Comment: No: D o not add to previous draw Performed By: #### 8 6001 #### [facility] [address] [facility] [place] [address], [facility] FOLATE SERUMon 11-21-2021 SERUM FOLATE 4.85 ng/mL Low 6.60-1000.00 [facility] Comment on above: Result Comment: Norm al range reflects World Health Organization International Standard Performed By: #### 1 0070, 62845, 55134, 59732 ####[facility] [place] [address], [facility] HEMATOCRITon 11-21-2021 Hematocrit (Bld) [Volume fraction] 25.6 % Low 39.0-50.0 [facility] Comment on above: Order Comment: pleas e start lab draw at 5pm followed by q12 at 5am tomorrow No: Do not add to previous draw Performed By: #### 9 2088 #### [facility] [address] [facility] [place] [address], [facility] HEMOGLOBINon 11-21-2021 Hemoglobin (Bld) [Mass/Vol] 8.8 g/dL Low 13.0-17.0 [facility] Comment on above: Order Comment: pleas e start lab draw at 5pm followed by q12 at 5am tomorrow No: Do not add to previous draw Performed By: #### 9 2088 #### [facility] [address] [facility] [place] [address], [facility] Hemoglobin (Bld) [Mass/Vol] 8.5 g/dL Low 13.0-17.0 [facility] Comment on above: Order Comment: pleas e start lab draw at 5pm followed by q12 at 5am tomorrow No: Do not add to previous draw Performed By: #### 9 2088 #### [facility] [address] [facility] [place] [address], [facility] MAGNESIUM BLOODon 11-21-2021 Magnesium [Mass/Vol] 2.2 mg/dL Normal 1.9-2.7 [facility] Comment on above: Order Comment: No: D o not add to previous draw Performed By: #### 8 6001 #### [facility] [address] [place] [address], [facility] POC GLUCOSE LABon 11-21-2021 Glucose [Mass/Vol] 135 mg/dL High 70-100 [facility] Comment on above: Performed By: #### 8 5499 #### [facility] [address] [place] [address], [facility] Glucose [Mass/Vol] 142 mg/dL High 70-100 [facility] Comment on above: Performed By: #### 8 5499 #### [facility] [address] [facility] [place] [address], [facility] UFH HEPARIN ASSAYon 11-22-19 22 UNFRACTIONATED HEPARIN 0.41 IU/mL Normal 0.30-0.70 [facility] Comment on above: Result Comment: [place] roxaban and Apixaban will interfere with the anti Xa assay used to monitor UFH and LMWH. Performed By: #### 3 0477 #### [facility] [address] [place] [address], [facility] VITAMIN B12on 11-21-2021 Cobalamin (Vitamin B12) [Mass/Vol] 422 pg/mL Normal 180-914 [facility] Comment on above: Result Comment: REFE RENCE RANGES: 180-914 pg/mL Normal 145-179 pg/mL Indeterminate <145 pg/mL Deficient Performed By: #### 1 0070, 56781, 35480, 38922 ####[facility] [facility] [place] [address], [facility] BASIC METABOLIC PANELon 10-27 Calcium [Mass/Vol] 8.4 mg/dL Low 8.6-10.3 [facility] Comment on above: Order Comment: No: D o not add to previous draw Performed By: #### 3 0477 #### [facility] [address] [place] [address], [place] Chloride [Moles/Vol] 104 mmol/L Normal 98-107 [facility] Comment on above: Order Comment: No: D o not add to previous draw Performed By: #### 3 0477 #### [facility] [address] [place] [address], [place] CO2 [Moles/Vol] 31 mmol/L Normal 21-31 [facility] Comment on above: Order Comment: No: D o not add to previous draw Performed By: #### 3 0477 #### [facility] [address] [place] [address], [place] Creatinine [Mass/Vol] 2.22 mg/dL High 0.70-1.30 [facility] Comment on above: Order Comment: No: D o not add to previous draw Performed By: #### 3 0477 #### [facility] [address] [place] [address], [facility] eGFR- 34 ml/min/1.73sq m Abnormal >60 [facility] Comment on above: Order Comment: No: D o not add to previous draw Result Comment: Calc ulation may not be valid for patients over 70 years Performed By: #### 3 0477 #### [facility] [address] [place] [address], [place] eGFR- non- 28 ml/min/1.73sq m Abnormal >60 [facility] Comment on above: Order Comment: No: D o not add to previous draw Result Comment: Calc ulation may not be valid for patients over 70 years Performed By: #### 3 0477 #### [facility] [address] [place] [address], [place] Glucose [Mass/Vol] 139 mg/dL High 70-100 [facility] Comment on above: Order Comment: No: D o not add to previous draw Performed By: #### 3 0477 #### [facility] [address] [place] [address], [place] Potassium [Moles/Vol] 3.3 mmol/L Low 3.5-5.1 [facility] Comment on above: Order Comment: No: D o not add to previous draw Performed By: #### 3 0477 #### [facility] [address] [place] [address], [facility] Sodium [Moles/Vol] 143 mmol/L Normal 136-145 [facility] Comment on above: Order Comment: No: D o not add to previous draw Performed By: #### 3 7 #### [facility] [address] [place] [address], [facility] Urea nitrogen [Mass/Vol] 49 mg/dL High 7-25 [facility] Comment on above: Order Comment: No: D o not add to previous draw Performed By: #### 3 0477 #### [facility] [address] CBC COMPLETE BLOOD COUNTon 0 - Hematocrit (Bld) [Volume fraction] 21.9 % Low 39.0-50.0 [facility] Comment on above: Order Comment: pleas e start lab draw at 5pm followed by q12 at 5am tomorrow No: Do not add to previous draw Performed By: #### 9 9 #### [facility] [address] [place] [id number] Hemoglobin (Bld) [Mass/Vol] 7.1 g/dL Low 13.0-17.0 [facility] Comment on above: Order Comment: pleas e start lab draw at 5pm followed by q12 at 5am tomorrow No: Do not add to previous draw Performed By: #### 9 9 #### [facility] [address] [place] [address], [facility] IMM PLATELET FRAC 20.3 % High 0.8-6.3 [facility] Comment on above: Order Comment: pleas e start lab draw at 5pm followed by q12 at 5am tomorrow No: Do not add to previous draw Performed By: #### 2088 #### [facility] [address] [place] [address], [facility] MCH (RBC) [Entitic mass] 36.4 pg High 27.0-33.0 [facility] Comment on above: Order Comment: pleas e start lab draw at 5pm followed by q12 at 5am tomorrow No: Do not add to previous draw Performed By: #### 2088 #### [facility] [address] [facility] [place] [address], [facility] MCHC (RBC) [Mass/Vol] 32.4 g/dL Normal 32.0-35.0 [facility] Comment on above: Order Comment: pleas e start lab draw at 5pm followed by q12 at 5am tomorrow No: Do not add to previous draw Performed By: #### 2088 #### [facility] [address] [facility] [place] [address], [facility] MCV (RBC) [Entitic vol] 112.3 fL High 82.0-98.0 [facility] Comment on above: Order Comment: pleas e start lab draw at 5pm followed by q12 at 5am tomorrow No: Do not add to previous draw Performed By: #### 2088 #### [facility] [address] [facility] [place] [address], [facility] Nucleated RBC/100 WBC (Bld) [Ratio] 0 % Normal 0-0 [facility] Comment on above: Order Comment: pleas e start lab draw at 5pm followed by q12 at 5am tomorrow No: Do not add to previous draw Performed By: #### 2088 #### [facility] [address] [facility] [place] [address], [facility] PLAT CNT 91 10*3/uL Low 150-400 [facility] Comment on above: Order Comment: pleas e start lab draw at 5pm followed by q12 at 5am tomorrow No: Do not add to previous draw Performed By: #### 2088 #### [facility] [address] [place] [address], [facility] RBC (Bld) [#/Vol] 1.95 10*6/uL Low 4.20-5.70 [facility] Comment on above: Order Comment: pleas e start lab draw at 5pm followed by q12 at 5am tomorrow No: Do not add to previous draw Performed By: #### 9 2088 #### [facility] [address] [facility] [place] [address], [facility] RDW ---- Normal 11.5-15.0 [facility] Comment on above: Order Comment: pleas e start lab draw at 5pm followed by q12 at 5am tomorrow No: Do not add to previous draw Performed By: #### 9 2088 #### [facility] [address] [facility] [place] [address], [facility] WBC (Bld) [#/Vol] 8.30 10*3/uL Normal 4.00-10.60 [facility] Comment on above: Order Comment: pleas e start lab draw at 5pm followed by q12 at 5am tomorrow No: Do not add to previous draw Performed By: #### 9 2088 #### [facility] [address] [facility] [address], [facility] HEMATOCRITon 11-20-2021 Hematocrit (Bld) [Volume fraction] 23.6 % Low 39.0-50.0 [facility] Comment on above: Order Comment: pleas e start lab draw at 5pm followed by q12 at 5am tomorrow No: Do not add to previous draw Performed By: #### 9 2088 #### [facility] [address] [facility] [place] [address], [facility] HEMOGLOBINon 11-20-2021 Hemoglobin (Bld) [Mass/Vol] 7.8 g/dL Low 13.0-17.0 [facility] Comment on above: Order Comment: pleas e start lab draw at 5pm followed by q12 at 5am tomorrow No: Do not add to previous draw Performed By: #### 9 2089 #### [facility] [address] [place] [address], [facility] MAGNESIUM BLOODon 11-20-2021 Magnesium [Mass/Vol] 2.2 mg/dL Normal 1.9-2.7 [facility] Comment on above: Order Comment: No: D o not add to previous draw Performed By: #### 3 0477 #### [facility] [address] [place] [address], [facility] PHOSPHORUS BLOODon Phosphate [Mass/Vol] 3.7 mg/dL Normal 2.5-5.0 [facility] Comment on above: Order Comment: No: D o not add to previous draw Performed By: #### 3 0477 #### [facility] [address] [place] [address], [facility] POC GLUCOSE LABon 11-20-2021 Glucose [Mass/Vol] 137 mg/dL High 70-100 [facility] Comment on above: Performed By: #### 3 0313 #### [facility] [address] [facility] [place] [address], [facility] Glucose [Mass/Vol] 134 mg/dL High 70-100 [facility] Comment on above: Performed By: #### 3 2044 #### [facility] [address] [facility] [place] [address], [facility] Glucose [Mass/Vol] 148 mg/dL High 70-100 [facility] Comment on above: Performed By: #### 8 5499 #### [facility] [address] [facility] [place] [address], [facility] RBC'S 1 UNITon 11-20-2021 CROSSMATCH INTERP 1 COMP Normal [facility] Comment on above: Performed By: #### 8 6001 #### [facility] [address] [place] [address], [facility] PRODUCT CODE 1 E0336 Normal [facility] Comment on above: Performed By: #### 8 6001 #### [facility] [address] [place] [address], [facility] PRODUCT STATUS 1 RE Normal [facility] Comment on above: Result Comment: Resu lt changed by IF on 11/21/2021 07:27. The previous value was XM. Performed By: #### 8 6001 #### [facility] [address] [place] [address], [facility] UNIT ABO 1 A Normal [facility] Comment on above: Performed By: #### 8 6001 #### [facility] [address] [place] [address], [facility] UNIT ID 1 [id number] Normal [facility] Comment on above: Performed By: #### 8 6001 #### [facility] [address] [place] [address], [facility] UNIT RH 1 Positive Normal [facility] Comment on above: Performed By: #### 8 6001 #### [facility] [address] [place] [address], [facility] RBC'S 2 UNITSon 11-20-2021 CROSSMATCH INTERP 1 COMP Normal [facility] Comment on above: Order Comment: Evalu ate for Cardiomegaly Performed By: #### 8 6002 ####[facility] [place] [address], [facility] CROSSMATCH INTERP 2 COMP Normal [facility] Comment on above: Order Comment: Evalu ate for Cardiomegaly Performed By: #### 8 6002 ####[facility] [place] [address], [facility] PRODUCT CODE 1 E0336 Normal [facility] Comment on above: Order Comment: Evalu ate for Cardiomegaly Performed By: #### 8 6002 ####[facility] PRODUCT CODE 2 E0336 Normal [facility] Comment on above: Order Comment: Evalu ate for Cardiomegaly Performed By: #### 8 6002 ####[facility] [place] [address], [facility] PRODUCT STATUS 1 PT Normal [facility] Comment on above: Order Comment: Evalu ate for Cardiomegaly Result Comment: Resu lt changed by IF on 11/20/2021 08:02. The previous value was XM. Result changed by IF on 11/21/2021 00:30. The previous value was IS. Performed By: #### 8 6002 ####[facility] PRODUCT STATUS 2 PT Normal [facility] Comment on above: Order Comment: Evalu ate for Cardiomegaly Result Comment: Resu lt changed by IF on 11/20/2021 19:00. The previous value was XX. Result changed by IF on 11/21/2021 00:30. The previous value was IS. Performed By: #### 8 6002 ####[facility] UNIT ABO 1 A Normal [facility] Comment on above: Order Comment: Evalu ate for Cardiomegaly Performed By: #### 8 6002 ####[facility] [place] [address], [facility] UNIT ABO 2 A Normal [facility] Comment on above: Order Comment: Evalu ate for Cardiomegaly Performed By: #### 8 6002 ####[facility] [place] [address], [facility] UNIT ID 1 [id number] Normal [facility] Comment on above: Order Comment: Evalu ate for Cardiomegaly Performed By: #### 8 6002 ####[facility] UNIT ID 2 [id number] Normal [facility] Comment on above: Order Comment: Evalu ate for Cardiomegaly Performed By: #### 8 6002 ####[facility] [place] [address], [facility] UNIT RH 1 Positive Normal [facility] Comment on above: Order Comment: Evalu ate for Cardiomegaly Performed By: #### 8 6002 ####[facility] [place] [address], [facility] UNIT RH 2 Positive Normal [facility] Comment on above: Order Comment: Evalu ate for Cardiomegaly Performed By: #### 8 6002 ####[facility] [facility] UFH HEPARIN ASSAYon 11-21-19 UNFRACTIONATED HEPARIN 0.32 IU/mL Normal 0.30-0.70 [facility] Comment on above: Result Comment: [place] roxaban and Apixaban will interfere with the anti Xa assay used to monitor UFH and LMWH. Performed By: #### 3 0477 #### [facility] [address] [place] [address], [facility] UNFRACTIONATED HEPARIN 0.36 IU/mL Normal 0.30-0.70 [facility] Comment on above: Result Comment: [place] roxaban and Apixaban will interfere with the anti Xa assay used to monitor UFH and LMWH. Performed By: #### 3 0477 #### [facility] [address] [place] [address], [facility] APTTon 11-19-2021 aPTT Coag (Bld) [Time] 32.7 s Normal 25.0-35.0 [facility] Comment on above: Order Comment: No: [...] PURPOSE. Performed By: #### 5 0103 #### [facility] [address] [place] [address], [facility] BASIC METABOLIC PANELon 04-2 Calcium [Mass/Vol] 8.3 mg/dL Low 8.6-10.3 [facility] Comment on above: Order Comment: Evalu ate for Cardiomegaly Performed By: #### 1 0070, 98913, 15854 ####[facility] [facility] [place] [address], [facility] Chloride [Moles/Vol] 104 mmol/L Normal 98-107 [facility] Comment on above: Order Comment: Evalu ate for Cardiomegaly Performed By: #### 1 0070, 46821, 08803 ####[facility] [facility] [place] [address], [facility] CO2 [Moles/Vol] 24 mmol/L Normal 21-31 [facility] Comment on above: Order Comment: Evalu ate for Cardiomegaly Performed By: #### 1 0070, 78390, 21255 ####[facility] [facility] [place] [address], [facility] Creatinine [Mass/Vol] 2.03 mg/dL High 0.70-1.30 [facility] Comment on above: Order Comment: Evalu ate for Cardiomegaly Performed By: #### 1 0070, 35047, 57008 ####[facility] [facility] [place] [address], [facility] eGFR- 38 ml/min/1.73sq m Abnormal >60 [facility] Comment on above: Order Comment: Evalu ate for Cardiomegaly Result Comment: Calc ulation may not be valid for patients over 70 years Performed By: #### 1 0070, 32862, 68828 ####[facility] [place] [address], [facility] eGFR- non- 32 ml/min/1.73sq m Abnormal >60 [facility] Comment on above: Order Comment: Evalu ate for Cardiomegaly Result Comment: Calc ulation may not be valid for patients over 70 years Performed By: #### 1 0, 93929, 52172 ####[facility] [place] [address], [facility] Glucose [Mass/Vol] 141 mg/dL High 70-100 [facility] Comment on above: Order Comment: Evalu ate for Cardiomegaly Performed By: #### 1 0, 40413, 92914 ####[facility] [place] [address], [facility] Potassium [Moles/Vol] 3.8 mmol/L Normal 3.5-5.1 [facility] Comment on above: Order Comment: Evalu ate for Cardiomegaly Performed By: #### 1 0, 31695, 05793 ####[facility] [place] [address], [facility] Sodium [Moles/Vol] 141 mmol/L Normal 136-145 [facility] Comment on above: Order Comment: Evalu ate for Cardiomegaly Performed By: #### 1 0, 06903, 00149 ####[facility] [place] [address], [facility] Urea nitrogen [Mass/Vol] 42 mg/dL High 7-25 [facility] Comment on above: Order Comment: Evalu ate for Cardiomegaly Performed By: #### 1 0, 70065, 39543 ####[facility] [place] [address], [place] CBC COMPLETE BLOOD COUNTon 0 11-19-2021 Hematocrit (Bld) [Volume fraction] 24.9 % Low 39.0-50.0 [facility] Comment on above: Order Comment: RIGHT BICEP Performed By: #### 3 0313 #### [facility] [address] [place] [address], [facility] Hemoglobin (Bld) [Mass/Vol] 7.9 g/dL Low 13.0-17.0 [facility] Comment on above: Order Comment: RIGHT BICEP Performed By: #### 3 0313 #### [facility] [address] [place] [address], [facility] IMM PLATELET FRAC 19.8 % High 0.8-6.3 [facility] Comment on above: Order Comment: RIGHT BICEP Performed By: #### 3 0313 #### [facility] [address] [place] [address], [facility] MCH (RBC) [Entitic mass] 36.1 pg High 27.0-33.0 [facility] Comment on above: Order Comment: RIGHT BICEP Performed By: #### 3 0313 #### [facility] [address] [place] [address], [facility] MCHC (RBC) [Mass/Vol] 31.7 g/dL Low 32.0-35.0 [facility] Comment on above: Order Comment: RIGHT BICEP Performed By: #### 3 0313 #### [facility] [address] [place] [address], [facility] MCV (RBC) [Entitic vol] 113.7 fL High 82.0-98.0 [facility] Comment on above: Order Comment: RIGHT BICEP Performed By: #### 3 0313 #### [facility] [address] [facility] [place] [address], [facility] Nucleated RBC/100 WBC (Bld) [Ratio] 0 % Normal 0-0 [facility] Comment on above: Order Comment: RIGHT BICEP Performed By: #### 3 0313 #### [facility] [address] [place] [address], [facility] PLAT CNT 73 10*3/uL Low 150-400 [facility] Comment on above: Order Comment: RIGHT BICEP Performed By: #### 3 0313 #### [facility] [address] [place] [id number], [facility] RBC (Bld) [#/Vol] 2.19 10*6/uL Low 4.20-5.70 [facility] Comment on above: Order Comment: RIGHT BICEP Performed By: #### 3 0313 #### [facility] [address] [place] [address], [facility] RDW ---- Normal 11.5-15.0 [facility] Comment on above: Order Comment: RIGHT BICEP Performed By: #### 3 0313 #### [facility] [address] [place] [address], [facility] WBC (Bld) [#/Vol] 11.57 10*3/uL High 4.00-10.60 [facility] Comment on above: Order Comment: RIGHT BICEP Performed By: #### 3 0313 #### [facility] [address] [place] [address], [facility] MAGNESIUM BLOODon 11-19-2021 Magnesium [Mass/Vol] 2.0 mg/dL Normal 1.9-2.7 [facility] Comment on above: Order Comment: Evalu ate for Cardiomegaly Performed By: #### 1 0, [id number], [id number] ####[facility] [facility] [place] [address], [facility] PHOSPHORUS BLOODon Phosphate [Mass/Vol] 3.3 mg/dL Normal 2.5-5.0 [facility] Comment on above: Order Comment: Evalu ate for Cardiomegaly Performed By: #### 1 0, 82814, 77081 ####[facility] [place] [address], [facility] POC GLUCOSE LABon 11-19-2021 Glucose [Mass/Vol] 174 mg/dL High 70-100 [facility] Comment on above: Performed By: #### 3 4 #### [facility] [address] [place] [address], [facility] Glucose [Mass/Vol] 183 mg/dL High 70-100 [facility] Comment on above: Performed By: #### 3 4 #### [facility] [address] [place] [address], [facility] Glucose [Mass/Vol] 161 mg/dL High 70-100 [facility] Comment on above: Performed By: #### 3 4 #### [facility] [address] [place] [address], [facility] TROPONIN-Ion 11-19-2021 Troponin I.cardiac [Mass/Vol] 2.17 ng/mL Critically high 0.00-0.04 [facility] Comment on above: Order Comment: Evalu ate for Cardiomegaly Result Comment: M-VT EVIOUS CRITICAL RESULT REFERENCE RANGES: 0.00 - 0.04 ng/ml NORMAL 0.05 - 0.50 ng/ml INDETERMINATE > 0.50 ng/ml CONSISTENT WITH AN M.I. Performed By: #### 3 5200 ####[facility] [place] [address], [facility] UFH HEPARIN ASSAYon 11-20-19 22 UNFRACTIONATED HEPARIN 0.15 IU/mL Critically low 0.30-0.70 [facility] Comment on above: Result Comment: RESU LTS CHECKED AND CALLED. ACCURATELY READ BACK BY GALA SEN RN AT 2055 Rivaroxaban and Apixaban will interfere with the anti Xa assay used to monitor UFH and LMWH. Performed By: #### 3 8017 #### [facility] [address] [place] [address], [facility] UNFRACTIONATED HEPARIN <0.10 Critically low 0.30-0.70 [facility] Comment on above: Result Comment: RESU LTS CHECKED AND CALLED. ACCURATELY READ BACK BY TIFF ROSSI RN AT 1316 Rivaroxaban and Apixaban will interfere with the anti Xa assay used to monitor UFH and LMWH. Performed By: #### 5 0103 #### [facility] [address] *BLOOD CULTUREon 11-18-2021 *BLOOD CULTURE Clinical Report: (D) Specimen: BLOOD CULTURE Collected: 11/18/2021 04:44 Status: Final Last Updated: 11/23/2021 08:16 (1) RIGHT BICEP CULT RES (Final) No Growth Day 5 Normal [facility] Comment on above: Order Comment: RIGHT BICEP Performed By: #### 3 0313 #### [facility] [address] *BLOOD CULTURE Clinical Report: (D) Specimen: BLOOD CULTURE Collected: 11/18/2021 04:44 Status: Final Last Updated: 11/23/2021 08:16 (1) LEFT AC CULT RES (Final) No Growth Day 5 Normal [facility] Comment on above: Order Comment: RIGHT BICEP Performed By: #### 3 0313 #### [facility] [address] *SPUTUM CULTUREon 11-18-2021 *SPUTUM CULTURE Clinical [...] Respiratory Lindy Moderate Growth ISOLATE: Pseudomonas aeruginosa --- SHAHEEN (mcg/ml) AZTREONAM (AZM) 8 Susceptible CEFEPIME (FEP) 4 Susceptible CIPROFLOXACIN (CIP) 0.5 Susceptible GENTAMICIN (GM) <=2 Susceptible MEROPENEM (MEM) <=0.5 Susceptible PIP/TAZO (TZP) 8/4 Susceptible TOBRAMYCIN (TOB) <=2 Susceptible Normal [facility] Comment on above: Order Comment: RIGHT BICEP Performed By: #### 3 0313 #### [facility] [address] APTTon 11-18-2021 aPTT Coag (Bld) [Time] 27.5 s Normal 25.0-35.0 [facility] Comment on above: Order Comment: No: [...] PURPOSE. Performed By: #### 5 0103 #### [facility] [address] aPTT Coag (Bld) [Time] 25.6 s Normal 25.0-35.0 [facility] Comment on above: Result Comment: ALL [...] PURPOSE. Performed By: #### 3 0477 #### [facility] [address] BASIC METABOLIC PANELon 10-27 Calcium [Mass/Vol] 8.5 mg/dL Low 8.6-10.3 [facility] Comment on above: Order Comment: No: D o not add to previous draw Performed By: #### 8 6001 #### [facility] [address] [place] [address], [facility] Chloride [Moles/Vol] 100 mmol/L Normal 98-107 [facility] Comment on above: Order Comment: No: D o not add to previous draw Performed By: #### 8 6001 #### [facility] [address] [place] [address], [place] CO2 [Moles/Vol] 26 mmol/L Normal 21-31 [facility] Comment on above: Order Comment: No: D o not add to previous draw Performed By: #### 8 6001 #### [facility] [address] [place] [address], [place] Creatinine [Mass/Vol] 2.27 mg/dL High 0.70-1.30 [facility] Comment on above: Order Comment: No: D o not add to previous draw Performed By: #### 8 6001 #### [facility] [address] [place] [address], [facility] eGFR- 34 ml/min/1.73sq m Abnormal >60 [facility] Comment on above: Order Comment: No: D o not add to previous draw Result Comment: Calc ulation may not be valid for patients over 70 years Performed By: #### 8 6001 #### [facility] [address] [place] [address], [place] eGFR- non- 28 ml/min/1.73sq m Abnormal >60 [facility] Comment on above: Order Comment: No: D o not add to previous draw Result Comment: Calc ulation may not be valid for patients over 70 years Performed By: #### 8 6001 #### [facility] [address] [place] [address], [place] Glucose [Mass/Vol] 162 mg/dL High 70-100 [facility] Comment on above: Order Comment: No: D o not add to previous draw Performed By: #### 8 6001 #### [facility] [address] [place] [address], [place] Potassium [Moles/Vol] 4.1 mmol/L Normal 3.5-5.1 [facility] Comment on above: Order Comment: No: D o not add to previous draw Performed By: #### 8 6001 #### [facility] [address] Sodium [Moles/Vol] 140 mmol/L Normal 136-145 [facility] Comment on above: Order Comment: No: D o not add to previous draw Performed By: #### 8 6001 #### [facility] [address] [facility] [address] Urea nitrogen [Mass/Vol] 38 mg/dL High 7-25 [facility] Comment on above: Order Comment: No: D o not add to previous draw Performed By: #### 8 6001 #### [facility] [address] CBC W/DIFFon 11-18-2021 ABS IMM GRANS 0.1 10*3/uL Normal 0.0-0.2 [facility] Comment on above: Order Comment: No: D o not add to previous draw Performed By: #### 5 0103 #### [facility] [address] [facility]. [address] ABS NEUTROPHILS 8.1 10*3/uL High 1.6-7.6 [facility] Comment on above: Order Comment: No: D o not add to previous draw Performed By: #### 5 0103 #### [facility] [address] [facility]. [address] ANISO Moderate Normal [facility] Comment on above: Order Comment: No: D o not add to previous draw Performed By: #### 5 0103 #### [facility] [address] Basophils (Bld) [#/Vol] 0.0 10*3/uL Normal 0.0-0.2 [facility] Comment on above: Order Comment: No: D o not add to previous draw Performed By: #### 5 0103 #### [facility] [address] [place] [address], [facility] Basophils/100 WBC (Bld) 0.2 % Normal 0.0-1.0 [facility] Comment on above: Order Comment: No: D o not add to previous draw Performed By: #### 5 0103 #### [facility] [address] [place] [address], [facility] Eosinophils (Bld) [#/Vol] 0.0 10*3/uL Normal 0.0-0.5 [facility] Comment on above: Order Comment: No: D o not add to previous draw Performed By: #### 5 0103 #### [facility] [address] [place] [address], [facility] Eosinophils/100 WBC (Bld) 0.0 % Normal 0.0-6.0 [facility] Comment on above: Order Comment: No: D o not add to previous draw Performed By: #### 5 0103 #### [facility] [address] [place] [address], [facility] Hematocrit (Bld) [Volume fraction] 22.5 % Low 39.0-50.0 [facility] Comment on above: Order Comment: No: D o not add to previous draw Performed By: #### 5 0103 #### [facility] [address] [place] [address], [facility] Hemoglobin (Bld) [Mass/Vol] 7.3 g/dL Low 13.0-17.0 [facility] Comment on above: Order Comment: No: D o not add to previous draw Performed By: #### 5 0103 #### [facility] [address] [place] [address], [facility] IMM PLATELET FRAC 19.9 % High 0.8-6.3 [facility] Comment on above: Order Comment: No: D o not add to previous draw Performed By: #### 5 0103 #### [facility] [address] [place] [address], [facility] IMMATURE GRANS 0.8 % Normal 0.0-1.0 [facility] Comment on above: Order Comment: No: D o not add to previous draw Performed By: #### 5 0103 #### [facility] [address] [place] [address], [facility] Lymphocytes (Bld) [#/Vol] 0.6 10*3/uL Low 1.2-4.0 [facility] Comment on above: Order Comment: No: D o not add to previous draw Performed By: #### 5 0103 #### [facility] [address] [place] [address], [facility] Lymphocytes/100 WBC (Bld) 5.3 % Low 20.0-45.0 [facility] Comment on above: Order Comment: No: D o not add to previous draw Performed By: #### 5 0103 #### [facility] [address] [place] [id number], [facility] MACRO Slight Normal [facility] Comment on above: Order Comment: No: D o not add to previous draw Performed By: #### 5 0103 #### [facility] [address] [place] [id number], [facility] MCH (RBC) [Entitic mass] 35.4 pg High 27.0-33.0 [facility] Comment on above: Order Comment: No: D o not add to previous draw Performed By: #### 5 0103 #### [facility] [address] [place] [id number], [facility] MCHC (RBC) [Mass/Vol] 32.4 g/dL Normal 32.0-35.0 [facility] Comment on above: Order Comment: No: D o not add to previous draw Performed By: #### 5 0103 #### [facility] [address] [place] [id number], [facility] MCV (RBC) [Entitic vol] 109.2 fL High 82.0-98.0 [facility] Comment on above: Order Comment: No: D o not add to previous draw Performed By: #### 5 0103 #### [facility] [address] [place] [id number], [facility] Monocytes (Bld) [#/Vol] 2.3 10*3/uL High 0.1-1.0 [facility] Comment on above: Order Comment: No: D o not add to previous draw Performed By: #### 5 0103 #### [facility] [address] [place] [address], [facility] MONOS 20.6 % High 5.0-12.0 [facility] Comment on above: Order Comment: No: D o not add to previous draw Performed By: #### 5 0103 #### [facility] [address] [place] [address], [facility] Neutrophils/100 WBC (Bld) 73.1 % High 40.0-72.0 [facility] Comment on above: Order Comment: No: D o not add to previous draw Performed By: #### 5 0103 #### [facility] [address] [place] [address], [facility] Nucleated RBC/100 WBC (Bld) [Ratio] 0 % Normal 0-0 [facility] Comment on above: Order Comment: No: D o not add to previous draw Performed By: #### 5 0103 #### [facility] [address] [place] [id number], [facility] OTHER 1 2 red cell populations Normal [facility] Comment on above: Order Comment: No: D o not add to previous draw Performed By: #### 5 0103 #### [facility] [address] [place] [id number], [facility] PLAT CNT 53 10*3/uL Low 150-400 [facility] Comment on above: Order Comment: No: D o not add to previous draw Performed By: #### 5 0103 #### [facility] [address] [place] [address], [facility] POIK Slight Normal [facility] Comment on above: Order Comment: No: D o not add to previous draw Performed By: #### 5 0103 #### [facility] [address] [place] [address], [facility] POLY Slight Normal [facility] Comment on above: Order Comment: No: D o not add to previous draw Performed By: #### 5 0103 #### [facility] [address] [place] [address], [facility] RBC (Bld) [#/Vol] 2.06 10*6/uL Low 4.20-5.70 [facility] Comment on above: Order Comment: No: D o not add to previous draw Performed By: #### 5 0103 #### [facility] [address] [place] [address], [facility] RDW ---- Normal 11.5-15.0 [facility] Comment on above: Order Comment: No: D o not add to previous draw Performed By: #### 5 0103 #### [facility] [address] [place] [address], [facility] WBC (Bld) [#/Vol] 11.14 10*3/uL High 4.00-10.60 [facility] Comment on above: Order Comment: No: D o not add to previous draw Performed By: #### 5 0103 #### [facility] [address] [place] [address], [facility] ABS IMM GRANS 0.1 10*3/uL Normal 0.0-0.2 [facility] Comment on above: Performed By: #### 3 0313 #### [facility] [address] [place] [address], [facility] ABS NEUTROPHILS 8.0 10*3/uL High 1.6-7.6 [facility] Comment on above: Performed By: #### 3 0313 #### [facility] [address] [place] [address], [facility] ANISO Moderate Normal [facility] Comment on above: Performed By: #### 3 0313 #### [facility] [address] [place] [address], [facility] Basophils (Bld) [#/Vol] 0.0 10*3/uL Normal 0.0-0.2 [facility] Comment on above: Performed By: #### 3 0313 #### [facility] [address] [facility] [place] [address], [facility] Basophils/100 WBC (Bld) 0.2 % Normal 0.0-1.0 [facility] Comment on above: Performed By: #### 3 0313 #### [facility] [address] [facility] [place] [address], [facility] Eosinophils (Bld) [#/Vol] 0.0 10*3/uL Normal 0.0-0.5 [facility] Comment on above: Performed By: #### 3 0313 #### [facility] [address] [facility] [place] [address], [facility] Eosinophils/100 WBC (Bld) 0.1 % Normal 0.0-6.0 [facility] Comment on above: Performed By: #### 3 0313 #### [facility] [address] [facility] [place] [address], [facility] Hematocrit (Bld) [Volume fraction] 21.7 % Low 39.0-50.0 [facility] Comment on above: Performed By: #### 3 3 #### [facility] [address] [place] [address], [facility] Hemoglobin (Bld) [Mass/Vol] 7.1 g/dL Low 13.0-17.0 [facility] Comment on above: Performed By: #### 3 0313 #### [facility] [address] [facility]. [address] IMM PLATELET FRAC 19.7 % High 0.8-6.3 [facility] Comment on above: Performed By: #### 3 0313 #### [facility] [address] [facility]. [address] IMMATURE GRANS 1.2 % High 0.0-1.0 [facility] Comment on above: Performed By: #### 3 0313 #### [facility] [address] Lymphocytes (Bld) [#/Vol] 0.6 10*3/uL Low 1.2-4.0 [facility] Comment on above: Performed By: #### 3 0313 #### [facility] [address] Lymphocytes/100 WBC (Bld) 5.0 % Low 20.0-45.0 [facility] Comment on above: Performed By: #### 3 0313 #### [facility] [address] MACRO Slight Normal [facility] Comment on above: Performed By: #### 3 0313 #### [facility] [address] [facility]. [address] MCH (RBC) [Entitic mass] 36.0 pg High 27.0-33.0 [facility] Comment on above: Performed By: #### 3 0313 #### [facility] [address] [place] [address], [facility] MCHC (RBC) [Mass/Vol] 32.7 g/dL Normal 32.0-35.0 [facility] Comment on above: Performed By: #### 3 0313 #### [facility] [address] [place] [address], [facility] MCV (RBC) [Entitic vol] 110.2 fL High 82.0-98.0 [facility] Comment on above: Performed By: #### 3 0313 #### [facility] [address] [facility] [place] [place] [address], [facility] Monocytes (Bld) [#/Vol] 2.3 10*3/uL High 0.1-1.0 [facility] Comment on above: Performed By: #### 3 3 #### [facility] [address] [facility] [place] [address], [facility] MONOS 20.6 % High 5.0-12.0 [facility] Comment on above: Performed By: #### 3 3 #### [facility] [address] [facility] [place] [address], [facility] Neutrophils/100 WBC (Bld) 72.9 % High 40.0-72.0 [facility] Comment on above: Performed By: #### 3 3 #### [facility] [address] [facility] [place] [address], [facility] Nucleated RBC/100 WBC (Bld) [Ratio] 0 % Normal 0-0 [facility] Comment on above: Performed By: #### 3 3 #### [facility] [address] [facility] [place] [address], [facility] OTHER 1 2 cell populations Normal [facility] Comment on above: Performed By: #### 3 3 #### [facility] [address] [facility] [place] [place] [address], [facility] PLAT CNT 48 10*3/uL Low 150-400 [facility] Comment on above: Performed By: #### 3 3 #### [facility] [address] [place] [id number], [facility] POLY Slight Normal [facility] Comment on above: Performed By: #### 3 0313 #### [facility] [address] [place] [address], [facility] RBC (Bld) [#/Vol] 1.97 10*6/uL Low 4.20-5.70 [facility] Comment on above: Performed By: #### 3 0313 #### [facility] [address] [place] [address], [facility] RDW ---- Normal 11.5-15.0 [facility] Comment on above: Performed By: #### 3 0313 #### [facility] [address] [place] [address], [facility] WBC (Bld) [#/Vol] 11.02 10*3/uL High 4.00-10.60 [facility] Comment on above: Performed By: #### 3 0313 #### [facility] [address] [place] [address], [facility] COMP METABOLIC PANELon 11-18 Albumin [Mass/Vol] 3.8 g/dL Normal 3.5-5.7 [facility] Comment on above: Order Comment: No: D o not add to previous draw Performed By: #### 8 6001 #### [facility] [address] [place] [address], [facility] ALKALINE PHOSPH 42 IU/L Normal 34-104 [facility] Comment on above: Order Comment: No: D o not add to previous draw Performed By: #### 8 6001 #### [facility] [address] [place] [address], [place] ALT [Catalytic activity/Vol] 48 U/L Normal 7-52 [facility] Comment on above: Order Comment: No: D o not add to previous draw Performed By: #### 8 6001 #### [facility] [address] [place] [address], [place] AST [Catalytic activity/Vol] 47 U/L High 13-39 [facility] Comment on above: Order Comment: No: D o not add to previous draw Performed By: #### 8 6001 #### [facility] [address] [place] [address], [place] Bilirubin [Mass/Vol] 1.4 mg/dL High 0.3-1.0 [facility] Comment on above: Order Comment: No: D o not add to previous draw Performed By: #### 8 6001 #### [facility] [address] [place] [address], [place] Calcium [Mass/Vol] 8.7 mg/dL Normal 8.6-10.3 [facility] Comment on above: Order Comment: No: D o not add to previous draw Performed By: #### 8 6001 #### [facility] [address] [place] [address], [place] Chloride [Moles/Vol] 103 mmol/L Normal 98-107 [facility] Comment on above: Order Comment: No: D o not add to previous draw Performed By: #### 8 6001 #### [facility] [address] [place] [address], [place] CO2 [Moles/Vol] 27 mmol/L Normal 21-31 [facility] Comment on above: Order Comment: No: D o not add to previous draw Performed By: #### 8 6001 #### [facility] [address] [place] [address], [place] Creatinine [Mass/Vol] 2.44 mg/dL High 0.70-1.30 [facility] Comment on above: Order Comment: No: D o not add to previous draw Performed By: #### 8 6001 #### [facility] [address] [place] [address], [place] eGFR- 31 ml/min/1.73sq m Abnormal >60 [facility] Comment on above: Order Comment: No: D o not add to previous draw Result Comment: Calc ulation may not be valid for patients over 70 years Performed By: #### 8 6001 #### [facility] [address] [place] [address], [place] eGFR- non- 26 ml/min/1.73sq m Abnormal >60 [facility] Comment on above: Order Comment: No: D o not add to previous draw Result Comment: Calc ulation may not be valid for patients over 70 years Performed By: #### 8 6001 #### [facility] [address] [place] [address], [place] Glucose [Mass/Vol] 128 mg/dL High 70-100 [facility] Comment on above: Order Comment: No: D o not add to previous draw Performed By: #### 8 6001 #### [facility] [address] [place] [address], [place] Potassium [Moles/Vol] 4.0 mmol/L Normal 3.5-5.1 [facility] Comment on above: Order Comment: No: D o not add to previous draw Performed By: #### 8 6001 #### [facility] [address] [place] [address], [place] Protein [Mass/Vol] 6.1 g/dL Normal 6.0-8.3 [facility] Comment on above: Order Comment: No: D o not add to previous draw Performed By: #### 8 6001 #### [facility] [address] [place] [address], [place] Sodium [Moles/Vol] 139 mmol/L Normal 136-145 [facility] Comment on above: Order Comment: No: D o not add to previous draw Performed By: #### 8 6001 #### [facility] [address] [place] [address], [place] Urea nitrogen [Mass/Vol] 34 mg/dL High 7-25 [facility] Comment on above: Order Comment: No: D o not add to previous draw Performed By: #### 8 6001 #### [facility] [address] [place] [address], [facility] MAGNESIUM BLOODon 11-18-2021 Magnesium [Mass/Vol] 2.2 mg/dL Normal 1.9-2.7 [facility] Comment on above: Order Comment: No: D o not add to previous draw Performed By: #### 8 6001 #### [facility] [address] [place] [address], [facility] PHOSPHORUS BLOODon 2 Phosphate [Mass/Vol] 3.5 mg/dL Normal 2.5-5.0 [facility] Comment on above: Order Comment: No: D o not add to previous draw Performed By: #### 8 6001 #### [facility] [address] [place] [address], [facility] POC GLUCOSE LABon 11-18-2021 Glucose [Mass/Vol] 171 mg/dL High 70-100 [facility] Comment on above: Performed By: #### 3 2044 #### [facility] [address] [place] [address], [place] Glucose [Mass/Vol] 169 mg/dL High 70-100 [facility] Comment on above: Performed By: #### 8 5499 #### [facility] [address] [place] [address], [facility] POC SARS COV2 ANTIGEN NEGATI VEon 11-18-2021 POC SARS COV2 ANTIGEN NEG Negative Normal NEGATIVE [facility] Comment on above: Result Comment: Nega [...] antigen from SARS-CoV-2 in direct nasopharyngeal swab ([employer]TER [employer] CHANGER) specimens from individuals who are suspected of [...] Accreditation. Performed By: #### 3 2044 #### [facility] 3000 ZAYDA BARON. [address] PROCALCITONINon 11-18-2021 PROCALCITONIN 7.09 ng/mL Critically high 0.00-0.10 [facility] Comment on above: Order Comment: No: [...] RN Performed By: #### 5 0103 #### [facility] [address] PROTHROMBIN TIMEon 2 INR Coag (PPP) [Relative time] 1.31 {INR} High 0.91-1.16 [facility] Comment on above: Order Comment: No: D o not add to previous draw Result Comment: ACCC P RECOMMENDED INR FOR WARFARIN THERAPY -------- ------- CONDITION INR PROPHYLAXIS OF VENOUS THROMBOSIS 2-3 (HIGH-RISK SURGERY) TREATMENT OF VENOUS THROMBOSIS 2-3 TREATMENT OF PULMONARY EMBOLISM 2-3 PREVENTION OF SYSTEMIC EMBOLISM: 2-3 ACUTE MYOCARDIAL INFARCTION TISSUE HEART VALVES VALVULAR HEART DISEASE ATRIAL FIBRILLATION RECURRENT SYSTEMIC EMBOLISM MECHANICAL HEART VALVE 2.5-3.5 FROM: ORAL ANTICOAGULANTS. MECHANISM OF ACTION, CLINICAL EFFECTIVENESS, AND OPTIMAL THERAPEUTIC RANGE. CHEST 1995;108:231S-246S. Performed By: #### 5 0103 #### [facility] 3000 [place] [address], [facility] PT Coag (PPP) [Time] 16.3 s High 12.3-14.8 [facility] Comment on above: Order Comment: No: D o not add to previous draw Result Comment: ALL RESULTS MUST BE INTERPRETED WITH RESPECT TO BLOOD DRAWING ARTIFACT OR DILUTION ERROR OF ANTICOAGULANT AT THE TIME OF SAMPLING. Performed By: #### 5 0103 #### [facility] 3000 [place] [address], [facility] INR Coag (PPP) [Relative time] 1.35 {INR} High 0.91-1.16 [facility] Comment on above: Result Comment: ACCC P RECOMMENDED INR FOR WARFARIN THERAPY -------- ------- CONDITION INR PROPHYLAXIS OF VENOUS THROMBOSIS 2-3 (HIGH-RISK SURGERY) TREATMENT OF VENOUS THROMBOSIS 2-3 TREATMENT OF PULMONARY EMBOLISM 2-3 PREVENTION OF SYSTEMIC EMBOLISM: 2-3 ACUTE MYOCARDIAL INFARCTION TISSUE HEART VALVES VALVULAR HEART DISEASE ATRIAL FIBRILLATION RECURRENT SYSTEMIC EMBOLISM MECHANICAL HEART VALVE 2.5-3.5 FROM: ORAL ANTICOAGULANTS. MECHANISM OF ACTION, CLINICAL EFFECTIVENESS, AND OPTIMAL THERAPEUTIC RANGE. CHEST 1995;108:231S-246S. Performed By: #### 3 0477 #### [facility] 3000 [facility] [place] [place] [address], [facility] PT Coag (PPP) [Time] 16.7 s High 12.3-14.8 [facility] Comment on above: Result Comment: ALL RESULTS MUST BE INTERPRETED WITH RESPECT TO BLOOD DRAWING ARTIFACT OR DILUTION ERROR OF ANTICOAGULANT AT THE TIME OF SAMPLING. Performed By: #### 3 0477 #### [facility] 3000 [facility] [place] [address], [facility] RBC'S 1 UNITon 11-18-2021 CROSSMATCH INTERP 1 COMP Normal [facility] Comment on above: Performed By: #### 8 6001 ####[facility]3000 [facility].[address] PRODUCT CODE 1 E0336 Normal [facility] Comment on above: Performed By: #### 8 6001 ####[facility]3000 [facility].[address] PRODUCT STATUS 1 PT Normal [facility] Comment on above: Result Comment: Resu lt changed by IF on 11/18/2021 02:27. The previous value was XX. Result changed by IF on 11/19/2021 00:30. The previous value was IS. Performed By: #### 8 6001 ####[facility]3000 ZAYDA [facility].[address] UNIT ABO 1 A Normal [facility] Comment on above: Performed By: #### 8 6001 ####[facility]3000 ZAYDA Adina.[address] UNIT ID 1 [id number] Normal [facility] Comment on above: Performed By: #### 8 6001 ####[facility]3000 ZAYDA [facility].[address] UNIT RH 1 Positive Normal [facility] Comment on above: Performed By: #### 8 6001 ####[facility]3000 [place] [address], [facility] TROPONIN-Ion 11-18-2021 Troponin I.cardiac [Mass/Vol] 2.11 ng/mL Critically high 0.00-0.04 [facility] Comment on above: Order Comment: No: D o not add to previous draw Result Comment: M-VT EVIOUS CRITICAL RESULT REFERENCE RANGES: 0.00 - 0.04 ng/ml NORMAL 0.05 - 0.50 ng/ml INDETERMINATE > 0.50 ng/ml CONSISTENT WITH AN M.I. Performed By: #### 8 6001 #### [facility] [address] [place] [address], [facility] Troponin I.cardiac [Mass/Vol] 1.88 ng/mL Critically high 0.00-0.04 [facility] Comment on above: Order Comment: No: D o not add to previous draw Result Comment: M-VT EVIOUS CRITICAL RESULT REFERENCE RANGES: 0.00 - 0.04 ng/ml NORMAL 0.05 - 0.50 ng/ml INDETERMINATE > 0.50 ng/ml CONSISTENT WITH AN M.I. Performed By: #### 8 6001 #### [facility] [address] Troponin I.cardiac [Mass/Vol] 1.38 ng/mL Critically high 0.00-0.04 [facility] Comment on above: Order Comment: No: D o not add to previous draw Result Comment: M-VT EVIOUS CRITICAL RESULT REFERENCE RANGES: 0.00 - 0.04 ng/ml NORMAL 0.05 - 0.50 ng/ml INDETERMINATE > 0.50 ng/ml CONSISTENT WITH AN M.I. Performed By: #### 3 5200 ####[facility]3000 [address] Troponin I.cardiac [Mass/Vol] 2.00 ng/mL Critically high 0.00-0.04 [facility] Comment on above: Result Comment: M-VT EVIOUS CRITICAL RESULT REFERENCE RANGES: 0.00 - 0.04 ng/ml NORMAL 0.05 - 0.50 ng/ml INDETERMINATE > 0.50 ng/ml CONSISTENT WITH AN M.I. Performed By: #### 8 6001 #### [facility] [address] Troponin I.cardiac [Mass/Vol] 1.90 ng/mL Critically high 0.00-0.04 [facility] Comment on above: Result Comment: M-VT EVIOUS CRITICAL RESULT REFERENCE RANGES: 0.00 - 0.04 ng/ml NORMAL 0.05 - 0.50 ng/ml INDETERMINATE > 0.50 ng/ml CONSISTENT WITH AN M.I. Performed By: #### 3 5200 ####[facility]3000 [address] VENOUS BLOOD GASon 2 BASE EXCESS 4 mmol/L Normal [facility] Comment on above: Performed By: #### 5 0103 #### [facility] 3000 [place] [address], [place] [employer] V60 Normal [facility] Comment on above: Performed By: #### 5 0103 #### [facility] [address] [place] [address], [facility] HCO3 (Bld) [Moles/Vol] 29 mmol/L Normal [facility] Comment on above: Performed By: #### 5 0103 #### [facility] [address] [place] [address], [facility] MODALITY BIPAP 14/6 Normal [facility] Comment on above: Performed By: #### 5 0103 #### [facility] [address] ZAYDA DRAPER. [address] Oxygen (Bld) [Partial pressure] 30 mm[Hg] Low 35-45 [facility] Comment on above: Performed By: #### 5 0103 #### [facility] [address] ZAYDA DRAPER. [address] Oxygen saturation in Blood 37.1 % Low 65.0-75.0 [facility] Comment on above: Performed By: #### 5 0103 #### [facility] [address] PCO2 44 mmHg Normal [facility] Comment on above: Performed By: #### 5 0103 #### [facility] [address] [place] [address], [facility] pH (Bld) 7.43 [pH] High 7.31-7.41 [facility] Comment on above: Performed By: #### 5 0103 #### [facility] [address] [place] [address], [facility] APTTon 11-17-2021 aPTT Coag (Bld) [Time] 30.1 s Normal 25.0-35.0 [facility] Comment on above: Result Comment: ALL [...] PURPOSE. Performed By: #### 5 0103 #### [facility] [address] [place] [address], [facility] BASIC METABOLIC PANELon 04-2 Calcium [Mass/Vol] 8.6 mg/dL Normal 8.6-10.3 [facility] Comment on above: Performed By: #### 1 0070, 50789, 65087 ####[facility]3000 [facility] [place] [address], [facility] Chloride [Moles/Vol] 99 mmol/L Normal 98-107 [facility] Comment on above: Performed By: #### 1 0070, 77495, 33070 ####[facility] [place] [address], [facility] CO2 [Moles/Vol] 26 mmol/L Normal 21-31 [facility] Comment on above: Performed By: #### 1 0070, 12314, 23080 ####[facility]3000 [facility] [place] [address], [facility] Creatinine [Mass/Vol] 2.68 mg/dL High 0.70-1.30 [facility] Comment on above: Performed By: #### 1 0070, 13310, 57488 ####[facility] [place] [address], [facility] eGFR- 28 ml/min/1.73sq m Abnormal >60 [facility] Comment on above: Result Comment: Calc ulation may not be valid for patients over 70 years Performed By: #### 1 0070, 84616, 61560 ####[facility] [place] [address], [facility] eGFR- non- 23 ml/min/1.73sq m Abnormal >60 [facility] Comment on above: Result Comment: Calc ulation may not be valid for patients over 70 years Performed By: #### 1 0070, 25804, 41984 ####[facility] [place] [address], [facility] Glucose [Mass/Vol] 185 mg/dL High 70-100 [facility] Comment on above: Performed By: #### 1 0070, 88382, 89634 ####[facility] [place] [address], [facility] Potassium [Moles/Vol] 4.0 mmol/L Normal 3.5-5.1 [facility] Comment on above: Performed By: #### 1 0, 81508, 97128 ####[facility]3000 [facility] [place] [address], [facility] Sodium [Moles/Vol] 140 mmol/L Normal 136-145 [facility] Comment on above: Performed By: #### 1 0070, 29718, 02433 ####[facility]3000 [facility] [place] [address], [facility] Urea nitrogen [Mass/Vol] 34 mg/dL High 7-25 [facility] Comment on above: Performed By: #### 1 0070, 80893, 73350 ####[facility]3000 [facility] [place] [address], [facility] BNP EDon 11-17-2021 Natriuretic peptide B (Bld) [Mass/Vol] 1081 pg/mL High 0-100 [facility] Comment on above: Result Comment: Give n the appropriate clinical setting a BNP result of >100 pg/mL indicates congestive heart failure. Performed By: #### 8 6001 #### [facility] [address] [place] [address], [facility] CBC W/DIFFon 11-17-2021 ABS IMM GRANS 0.2 10*3/uL Normal 0.0-0.2 [facility] Comment on above: Performed By: #### 3 0313 #### [facility] [address] [place] [address], [facility] ABS NEUTROPHILS 9.3 10*3/uL High 1.6-7.6 [facility] Comment on above: Performed By: #### 3 3 #### [facility] [address] [facility] [place] [address], [facility] ANISO Moderate Normal [facility] Comment on above: Performed By: #### 3 3 #### [facility] [address] [place] [address], [facility] Basophils (Bld) [#/Vol] 0.0 10*3/uL Normal 0.0-0.2 [facility] Comment on above: Performed By: #### 3 3 #### [facility] [address] [place] [address], [facility] Basophils/100 WBC (Bld) 0.2 % Normal 0.0-1.0 [facility] Comment on above: Performed By: #### 3 0313 #### [facility] [address] [place] [address], [facility] Eosinophils (Bld) [#/Vol] 0.0 10*3/uL Normal 0.0-0.5 [facility] Comment on above: Performed By: #### 3 0313 #### [facility] [address] [place] [address], [facility] Eosinophils/100 WBC (Bld) 0.0 % Normal 0.0-6.0 [facility] Comment on above: Performed By: #### 3 3 #### [facility] [address] Erythrocyte distribution width (RBC) [Ratio] 21.6 % High 11.5-15.0 [facility] Comment on above: Performed By: #### 3 0313 #### [facility] [address] [place] [address], [facility] Hematocrit (Bld) [Volume fraction] 20.1 % Low 39.0-50.0 [facility] Comment on above: Performed By: #### 3 0313 #### [facility] [address] [place] [address], [facility] Hemoglobin (Bld) [Mass/Vol] 6.5 g/dL Low 13.0-17.0 [facility] Comment on above: Performed By: #### 3 0313 #### [facility] [address] [facility] [place] [address], [facility] HYPO Moderate Normal [facility] Comment on above: Performed By: #### 3 0313 #### [facility] [address] [place] [address], [facility] IMM PLATELET FRAC 20.4 % High 0.8-6.3 [facility] Comment on above: Performed By: #### 3 0313 #### [facility] [address] [facility] [place] [address], [facility] IMMATURE GRANS 1.3 % High 0.0-1.0 [facility] Comment on above: Performed By: #### 3 0313 #### [facility] [address] [place] [address], [facility] Lymphocytes (Bld) [#/Vol] 0.6 10*3/uL Low 1.2-4.0 [facility] Comment on above: Performed By: #### 3 0313 #### [facility] [address] [facility] [place] [address], [facility] Lymphocytes/100 WBC (Bld) 4.7 % Low 20.0-45.0 [facility] Comment on above: Performed By: #### 3 0313 #### [facility] [address] [place] [id number], [facility] MACRO Moderate Normal [facility] Comment on above: Performed By: #### 3 0313 #### [facility] [address] [place] [address], [facility] MCH (RBC) [Entitic mass] 37.1 pg High 27.0-33.0 [facility] Comment on above: Performed By: #### 3 0313 #### [facility] [address] [facility] [place] [address], [facility] MCHC (RBC) [Mass/Vol] 32.3 g/dL Normal 32.0-35.0 [facility] Comment on above: Performed By: #### 3 0313 #### [facility] [address] MCV (RBC) [Entitic vol] 114.9 fL High 82.0-98.0 [facility] Comment on above: Performed By: #### 3 0313 #### [facility] [address] [place] [address], [facility] Monocytes (Bld) [#/Vol] 2.5 10*3/uL High 0.1-1.0 [facility] Comment on above: Performed By: #### 3 0313 #### [facility] [address] [place] [address], [facility] MONOS 19.8 % High 5.0-12.0 [facility] Comment on above: Performed By: #### 3 0313 #### [facility] [address] Neutrophils/100 WBC (Bld) 74.0 % High 40.0-72.0 [facility] Comment on above: Performed By: #### 3 0313 #### [facility] [address] [place] [address], [facility] Nucleated RBC/100 WBC (Bld) [Ratio] 0 % Normal 0-0 [facility] Comment on above: Performed By: #### 3 0313 #### [facility] [address] [facility] [address], [facility] OVALOCYTES Moderate Normal [facility] Comment on above: Performed By: #### 3 3 #### [facility] [address] [place] [address], [facility] PLAT CNT 52 10*3/uL Low 150-400 [facility] Comment on above: Performed By: #### 3 3 #### [facility] [address] [place] [address], [facility] POIK Moderate Normal [facility] Comment on above: Performed By: #### 3 0313 #### [facility] [address] [facility] [place] [address], [facility] RBC (Bld) [#/Vol] 1.75 10*6/uL Low 4.20-5.70 [facility] Comment on above: Performed By: #### 3 0313 #### [facility] [address] [facility] [place] [address], [facility] WBC (Bld) [#/Vol] 12.59 10*3/uL High 4.00-10.60 [facility] Comment on above: Performed By: #### 3 3 #### [facility] [address] [facility] [place] [place] [address], [facility] MAGNESIUM BLOODon 11-17-2021 Magnesium [Mass/Vol] 1.7 mg/dL Low 1.9-2.7 [facility] Comment on above: Performed By: #### 1 0070, 67311, 25329 ####[facility]3000 [place] [address], [facility] PORTABLE CHEST 1 VIEWon 10-27 PORTABLE CHEST 1 VIEW [facility] Department of Radiology [address] [place] [id number] Patient Name: SANDIP BROUSSARD : 1940 Sex: M Age: Race: White Pt. Location: [facility] Patient Status: E Ordered Date: 11/17/2021 7:20:00 PM Completed Date: 11/17/2021 07:37 PM Requesting Provider: ДМИТРИЙ MEEKS Attending Provider: TRISTON SANDOVAL Report Copy To: Signs & Symptoms: O2 Desaturation History: Comments: Evaluate for Cardiomegaly Exam: PORTABLE CHEST 1 VIEW PORTABLE CHEST 1 VIEW 11/17/2021 7:37 PM [...] recommended. Electronically signed: Jasper Zelaya. Transcribed by: [email or web address], User Resident: Electronically Signed by: JASPER ZELAYA @ 11/17/2021 07:43 PM Normal [facility] Comment on above: Order Comment: Evalu ate for Cardiomegaly PROTHROMBIN TIMEon INR Coag (PPP) [Relative time] 1.42 {INR} High 0.91-1.16 [facility] Comment on above: Result Comment: ACCC P RECOMMENDED INR FOR WARFARIN THERAPY -------- ------- CONDITION INR PROPHYLAXIS OF VENOUS THROMBOSIS 2-3 (HIGH-RISK SURGERY) TREATMENT OF VENOUS THROMBOSIS 2-3 TREATMENT OF PULMONARY EMBOLISM 2-3 PREVENTION OF SYSTEMIC EMBOLISM: 2-3 ACUTE MYOCARDIAL INFARCTION TISSUE HEART VALVES VALVULAR HEART DISEASE ATRIAL FIBRILLATION RECURRENT SYSTEMIC EMBOLISM MECHANICAL HEART VALVE 2.5-3.5 FROM: ORAL ANTICOAGULANTS. MECHANISM OF ACTION, CLINICAL EFFECTIVENESS, AND OPTIMAL THERAPEUTIC RANGE. CHEST 1995;108:231S-246S. Performed By: #### 5 0103 #### [facility] [employer] [place] [place] [address], [facility] PT Coag (PPP) [Time] 17.3 s High 12.3-14.8 [facility] Comment on above: Result Comment: ALL RESULTS MUST BE INTERPRETED WITH RESPECT TO BLOOD DRAWING ARTIFACT OR DILUTION ERROR OF ANTICOAGULANT AT THE TIME OF SAMPLING. Performed By: #### 5 0103 #### [facility] [address] [employer] [place] [address], [facility] RBC'S 1 UNITon 11-17-2021 CROSSMATCH INTERP 1 COMP Normal [facility] Comment on above: Performed By: #### 5 3 #### [facility] [employer] [place] [address], [facility] PRODUCT CODE 1 E0336 Normal [facility] Comment on above: Performed By: #### 5 3 #### [facility] 3000 [facility]. [address] PRODUCT STATUS 1 PT Normal [facility] Comment on above: Result Comment: Resu lt changed by IF on 11/17/2021 20:41. The previous value was XM. Result changed by IF on 11/18/2021 00:30. The previous value was IS. Performed By: #### 5 0103 #### [facility] [address] [facility]. [address] UNIT ABO 1 A Normal [facility] Comment on above: Performed By: #### 5 0103 #### [facility] [address] [facility]. [address] UNIT ID 1 [id number] Normal [facility] Comment on above: Performed By: #### 5 0103 #### [facility] [address] [facility]. [address] UNIT RH 1 Positive Normal [facility] Comment on above: Performed By: #### 5 0103 #### [facility] [address] [facility]. [address] TROPONIN-Ion 11-17-2021 Troponin I.cardiac [Mass/Vol] 1.79 ng/mL Critically high 0.00-0.04 [facility] Comment on above: Result Comment: M-TR OPONIN INITIAL CRITICAL HIGH; RESPUN AND RETESTED M-CRITICAL RESULT(S) REVIEWED, CALLED TO AND READ BACK BY Judy Pablo RN at 2130. REFERENCE RANGES: 0.00 - 0.04 ng/ml NORMAL 0.05 - 0.50 ng/ml INDETERMINATE > 0.50 ng/ml CONSISTENT WITH AN M.I. Performed By: #### 1 0070, 97440, 96413 ####[facility] TYPE AND SCREENon 11-17-2021 ABO INTERPRETATION A Normal [facility] Comment on above: Performed By: #### 6 2586 ####[facility]3000 [facility].[address] RH INTERPRETATION Positive Normal [facility] Comment on above: Performed By: #### 6 2586 ####[facility]3000 [facility].[address] CBC W Auto Differential pane l (Bld)on 11-02-2021 Abs Baso 0.00 k/uL <0.11 k/uL [facility] Abs Wheeler 1.26 k/uL High <0.87 k/uL [facility] Absolute nRBC <0.01 <0.01 k/uL [facility] Anisocytosis Ql (Bld) Present Jacobo [facility] Basophils/100 WBC (Bld) 0.0 % [facility] Differential cell count method Nom (Bld) Manual [facility] Eosinophils (Bld) [#/Vol] 0.00 10*3/uL <0.46 k/uL [facility] Eosinophils/100 WBC (Bld) 0.0 % [facility] Erythrocyte distribution width (RBC) [Ratio] 24.7 % High 11.5 - 15.0 % [facility] Hematocrit (Bld) [Volume fraction] 25.2 % Low 39.0 - 51.0 % [facility] Hemoglobin (Bld) [Mass/Vol] 7.9 g/dL Low 13.0 - 17.0 g/dL [facility] Lymphocytes (Bld) [#/Vol] 1.33 10*3/uL 1.00 - 4.00 k/uL [facility] Lymphocytes/100 WBC (Bld) 19.0 % [facility] MCH (RBC) [Entitic mass] 36.2 pg High 26.0 - 34.0 pg [facility] MCHC (RBC) [Mass/Vol] 31.3 g/dL 30.5 - 36.0 g/ dL [facility] MCV (RBC) [Entitic vol] 115.6 fL High 80.0 - 100.0 fL [facility] Monocytes/100 WBC (Bld) 18.0 % [facility] Neutrophils (Bld) [#/Vol] 4.42 10*3/uL 1.45 - 7.50 k/uL [facility] Neutrophils/100 WBC (Bld) 63.0 % [facility] Nucleated RBC/100 WBC (Bld) [Ratio] 0.0 /100 WBC [facility] Ovalocytes LM Ql (Bld) Few [facility] Platelet Estimate Adequate [facility] Platelet mean volume (Bld) [Entitic vol] 13.8 fL High 9.0 - 12.7 fL [facility] Platelets (Bld) [#/Vol] 226 10*3/uL 150 - 400 k/uL [facility] Polychromasia LM Ql (Bld) Slight [facility] RBC (Bld) [#/Vol] 2.18 10*6/uL Low 4.20 - 6.00 m/uL [facility] Red Cell Morph Reviewed [facility] WBC (Bld) [#/Vol] 7.02 10*3/uL 3.70 - 11.00 k/u L [facility] Comprehensive metabolic 2000 panelon 11-01-2021 Albumin [Mass/Vol] 4.2 g/dL 3.9 - 4.9 g/dL [facility] ALP [Catalytic activity/Vol] 51 U/L 38 - 113 U/L [facility] ALT [Catalytic activity/Vol] 22 U/L 10 - 54 U/L [facility] Anion gap [Moles/Vol] 13 mmol/L 9 - 18 mmol/L [facility] AST [Catalytic activity/Vol] 13 U/L Low 14 - 40 U/L [facility] Bilirubin [Mass/Vol] 0.5 mg/dL 0.2 - 1.3 mg/dL [facility] Calcium [Mass/Vol] 9.5 mg/dL 8.5 - 10.2 mg/dL [facility] Chloride [Moles/Vol] 104 mmol/L 97 - 105 mmol/L [facility] CO2 [Moles/Vol] 24 mmol/L 22 - 30 mmol/L [facility] Creatinine [Mass/Vol] 1.98 mg/dL High 0.73 - 1.22 mg /dL [facility] Estimated Glomerular Filtration Rate 33 mL/min/1.73m Low >=60 mL/min/1.73m [facility] Glucose [Mass/Vol] 154 mg/dL High 74 - 99 mg/dL [facility] Potassium [Moles/Vol] 3.6 mmol/L Low 3.7 - 5.1 mmol /L [facility] Protein [Mass/Vol] 6.3 g/dL 6.3 - 8.0 g/dL [facility] Sodium [Moles/Vol] 141 mmol/L 136 - 144 mmol/L [facility] Urea nitrogen [Mass/Vol] 41 mg/dL High 9 - 24 mg/dL [facility] LD LACTATE DEHYDROon 022 LDH [Catalytic activity/Vol] 263 U/L High 135 - 225 U/L [facility] Audiology Office/Clinic Note on 06-23-2018 Audiology Office/Clinic Note Patient seen for hearing aid evaluation, accompanied by his . Hearing test results were reviewed and appropriate hearing aid styles and levels of technology were discussed. Patient expressed interest in two Phonak Bolero B50 or 70-SP BTE hearing aids in [facility] with custom earmolds. Bilateral earmold impressions were [...] aids to be billed at time of dispense.Electronical ly signed by Evette Stiles 06/23/18 13:47 EST Normal [facility] Audiology Office/Clinic Note on 06-11-2018 Audiology [...] aid evaluation if interested in discussing amplification options.RECOMMENDATIO NS:1. Follow up with Dr. Andrew regarding today?s test results.2. Following any medical management, return for updated hearing evaluation.3. Return for hearing aid evaluation if interested in discussing amplification options.Electronicall y signed by Evette Stiles 06/11/18 09:57 EST Normal [facility] Otolaryngology Office/Clinic Noteon 06-11-2018 Otolaryngology Office/Clinic [...] Ongoing Hypertension Prediabetic nonclinical diabetes Historical Heart attackProcedure/Surgi josé History Stent placement.Medications amLODIPine 5 mg oral tablet, 5 mg, 1 tabs, Oral, Daily amoxicillin-clavulana te 875 mg-125 mg oral tablet, 1 tabs, [...] No qualifying data available. No qualifying data available.Electronica lly signed by Mylene Andrew MD 06/11/18 11:02 EST Normal [facility] Otolaryngology Consultationo n 05-28-2018 Otolaryngology Consultation [...] Ongoing Hypertension Prediabetic nonclinical diabetes Historical Heart attackProcedure/Surgi josé History Stent placement.Medications Home amLODIPine 5 mg oral tablet, 5 mg, 1 tabs, Oral, Daily amoxicillin-clavulana te 875 mg-125 mg oral tablet, 1 tabs, [...] No active inpatient medications Prescriptions No active PrescriptionsAllergie s Coreg (unknown)Social History Alcohol Never Tobacco 10 or more cigarettes (1/2 pack or more)/day in last 30 days Use:. Cigarettes, 1 per day. Packs, 30 year(s).Family History Hypertension: Mother. Stroke: Father.Lab Results Microbiology No qualifying data available.Electronica lly signed by Mylene Andrew MD 05/28/18 11:44 EDTThe right ear has some cerumen and the TM is suspicious for fluid. I'll be scheduling him for a follow-up in 2 weeks to reevaluate his nose and we'll get a hearing test before his visit.Electronically signed by Mylene Andrew MD 05/28/18 11:46 EDT Normal [facility] Vital Signs Date Time Vital Sign Value Performing Clinician Facility 10-17-2023 18:08-0400 Diastolic blood pressure 55 mm[Hg] MD Jacquelin Hernandes Work Phone: [facility] 10-17-2023 18:08-0400 Heart rate 80 /min MD Jacquelin Hernandes Work Phone: [facility] 10-17-2023 18:08-0400 Inhaled oxygen flow rate 3 L/min MD Jacquelin Hernandes Work Phone: [facility] 10-17-2023 18:08-0400 Respiratory rate 18 /min MD Jacquelin Hernandes Work Phone: [facility] 10-17-2023 18:08-0400 SaO2% (BldA) [Mass fraction] 99 % MD Jacquelin Hernandes Work Phone: [facility] 10-17-2023 18:08-0400 Systolic blood pressure 127 mm[Hg] MD Jacquelin Hernandes Work Phone: [facility] 10-17-2023 15:30-0400 Body height 167.64 cm MD Jacquelin Hernandes Work Phone: [facility] 10-17-2023 15:30-0400 Body weight 92.07 kg MD Jacquelin Hernandes Work Phone: [facility] 10-17-2023 15:26-0400 Body temperature 97.5 [degF] MD Jacquelin Hernandes Work Phone: [facility] 03-11-2023 13:00-0400 Blood Pressure Location [facility]raw[facility] 03-11-2023 13:00-0400 Body temperature 97.7 [degF] [facility] 03-11-2023 13:00-0400 Diastolic blood pressure 64 mm[Hg] [facility] 03-11-2023 13:00-0400 Heart rate 59 /min [facility] Al[facility]raw[facility] 03-11-2023 13:00-0400 Mean blood pressure 86 mm[Hg] [facility] Al[facility] 03-11-2023 13:00-0400 Respiratory rate 18 /min Mhd Eliud-Luz Maria [facility] 03-11-2023 13:00-0400 SaO2% (BldA) [Mass fraction] 100 % d Eliud-Akuaraenedelia [facility] 03-11-2023 13:00-0400 Systolic blood pressure 129 mm[Hg] d Eliud-Akuaraenedelia [facility] 11-20-2022 15:16-0400 Body height 166.1 cm Asher Hummel MD Work Phone: [facility] 11-20-2022 15:16-0400 Body temperature 97.5 [degF] Asher Hummel MD Work Phone: [facility] 11-20-2022 15:16-0400 Body weight 95.44 kg Asher Hummel MD Work Phone: [facility] 11-20-2022 15:16-0400 Diastolic blood pressure 58 mm[Hg] Asher Hummel MD Work Phone: [facility] 11-20-2022 15:16-0400 Heart rate 59 /min Asher Hummel MD Work Phone: [facility] 11-20-2022 15:16-0400 Respiratory rate 18 /min Asher Hummel MD Work Phone: [facility] 11-20-2022 15:16-0400 SaO2% (BldA) [Mass fraction] 93 % Asher Hummel MD Work Phone: [facility] 11-20-2022 15:16-0400 Systolic blood pressure 98 mm[Hg] Asher Hummel MD Work Phone: [facility] 10-15-2022 14:14-0400 Body temperature 98.6 [degF] Elysia Esposito MD Work Phone: [facility] 10-15-2022 14:14-0400 Body weight 103.42 kg Elysia Esposito MD Work Phone: [facility] 10-15-2022 14:14-0400 Diastolic blood pressure 69 mm[Hg] Elysia Esposito MD Work Phone: [facility] 10-15-2022 14:14-0400 Heart rate 56 /min Elysia Esposito MD Work Phone: [facility] 10-15-2022 14:14-0400 Respiratory rate 19 /min Elysia Esposito MD Work Phone: [facility] 10-15-2022 14:14-0400 SaO2% (BldA) [Mass fraction] 100 % Elysia Esposito MD Work Phone: [facility] 10-15-2022 14:14-0400 Systolic blood pressure 129 mm[Hg] Elysia Esposito MD Work Phone: [facility] 09-18-2022 13:30-0500 Diastolic blood pressure 43 mm[Hg] Asher Hummel MD Work Phone: [facility] 09-18-2022 13:30-0500 Systolic blood pressure 126 mm[Hg] Asher Hummel MD Work Phone: [facility] 09-18-2022 13:28-0500 Body height 166.1 cm Asher Hummel MD Work Phone: [facility] 09-18-2022 13:28-0500 Body temperature 97.7 [degF] Asher Hummel MD Work Phone: [facility] 09-18-2022 13:28-0500 Body weight 100.25 kg Asher Hummel MD Work Phone: [facility] 09-18-2022 13:28-0500 Heart rate 71 /min Asher Hummel MD Work Phone: [facility] 09-18-2022 13:28-0500 Respiratory rate 18 /min Asher Hummel MD Work Phone: [facility] 09-18-2022 13:28-0500 SaO2% (BldA) [Mass fraction] 92 % Asher Hummel MD Work Phone: [facility] 08-28-2022 15:07-0500 Body height 166.1 cm Asher Hummel MD Work Phone: [facility] 08-28-2022 15:07-0500 Body temperature 97.3 [degF] Asher Hummel MD Work Phone: [facility] 08-28-2022 15:07-0500 Body weight 103.51 kg Asher Hummel MD Work Phone: [facility] 08-28-2022 15:07-0500 Diastolic blood pressure 62 mm[Hg] Asher Hummel MD Work Phone: [facility] 08-28-2022 15:07-0500 Heart rate 77 /min Asher Hummel MD Work Phone: [facility] 08-28-2022 15:07-0500 Respiratory rate 16 /min Asher Hummel MD Work Phone: [facility] 08-28-2022 15:07-0500 SaO2% (BldA) [Mass fraction] 92 % Asher Hummel MD Work Phone: [facility] 08-28-2022 15:07-0500 Systolic blood pressure 110 mm[Hg] Asher Hummel MD Work Phone: [facility] 08-21-2022 13:30-0500 Body height 166.1 cm Wilfred Martinez APRN.DERRICK HELPER Work Phone: [facility] 08-21-2022 13:30-0500 Body temperature 97.59 [degF] Wilfred Martinez APRN.CNP Work Phone: [facility] 08-21-2022 13:30-0500 Body weight 103.51 kg Wilfred Martinez APRN.DERRICK HELPER Work Phone: [facility] 08-21-2022 13:30-0500 Diastolic blood pressure 37 mm[Hg] Wilfred Martinez APRN.DERRICK HELPER Work Phone: [facility] 08-21-2022 13:30-0500 Heart rate 74 /min Wilfred Martinez APRN.DERRICK HELPER Work Phone: [facility] 08-21-2022 13:30-0500 Respiratory rate 18 /min Wilfred Martinez APRN.DERRICK HELPER Work Phone: [facility] 08-21-2022 13:30-0500 SaO2% (BldA) [Mass fraction] 92 % Wilfred Martinez APRN.DERRICK HELPER Work Phone: [facility] 08-21-2022 13:30-0500 Systolic blood pressure 84 mm[Hg] Wilfred Martinez APRN.DERRICK HELPER Work Phone: [facility] 08-14-2022 14:28-0500 Diastolic blood pressure 64 mm[Hg] Chair Monteagle Work Phone: [facility] 08-14-2022 14:28-0500 SaO2% (BldA) [Mass fraction] 97 % Chair Roman Work Phone: [facility] 08-14-2022 14:28-0500 Systolic blood pressure 102 mm[Hg] Chair Roman Work Phone: [facility] 08-14-2022 13:55-0500 Body height 166.1 cm Wilfred Martinez APRN.DERRICK HELPER Work Phone: [facility] 08-14-2022 13:55-0500 Body temperature 97.3 [degF] Wilfred Martinez APRN.DERRICK HELPER Work Phone: [facility] 08-14-2022 13:55-0500 Body weight 103.96 kg Wilfred Martinez APRN.DERRICK HELPER Work Phone: [facility] 08-14-2022 13:55-0500 Diastolic blood pressure 41 mm[Hg] Wilfred Martinez APRN.DERRICK HELPER Work Phone: [facility] 08-14-2022 13:55-0500 Heart rate 71 /min Wilfred Martinez APRN.DERRICK HELPER Work Phone: [facility] 08-14-2022 13:55-0500 Respiratory rate 16 /min Wilfred Martinez UX VISUAL DESIGNER.DERRICK HELPER Work Phone: [facility] 08-14-2022 13:55-0500 SaO2% (BldA) [Mass fraction] 90 % Wilfred Martinez UX VISUAL DESIGNER.DERRICK HELPER Work Phone: [facility] 08-14-2022 13:55-0500 Systolic blood pressure 93 mm[Hg] Wilfred Martinez APRN.DERRICK HELPER Work Phone: [facility] 08-07-2022 15:19-0500 Diastolic blood pressure 57 mm[Hg] Asher Hummel MD Work Phone: [facility] 08-07-2022 15:19-0500 Systolic blood pressure 112 mm[Hg] Asher Hummel MD Work Phone: [facility] 08-07-2022 15:14-0500 Body height 166.1 cm Asher Hummel MD Work Phone: [facility] 08-07-2022 15:14-0500 Body temperature 97.81 [degF] Asher Hummel MD Work Phone: [facility] 08-07-2022 15:14-0500 Body weight 102.97 kg Asher Hummel MD Work Phone: [facility] 08-07-2022 15:14-0500 Heart rate 71 /min Asher Hummel MD Work Phone: [facility] 08-07-2022 15:14-0500 Respiratory rate 16 /min Asher Hummel MD Work Phone: [facility] 08-07-2022 15:14-0500 SaO2% (BldA) [Mass fraction] 94 % Asher Hummel MD Work Phone: [facility] 07-30-2022 15:00-0500 Body height 166.1 cm Radha Lori PA-C Work Phone: [facility] 07-30-2022 15:00-0500 Body temperature 97.9 [degF] Radha Lori PA-C Work Phone: [facility] 07-30-2022 15:00-0500 Body weight 104.69 kg Radha Lroi PA-C Work Phone: [facility] 07-30-2022 15:00-0500 Diastolic blood pressure 52 mm[Hg] Radha Lori PA-C Work Phone: [facility] 07-30-2022 15:00-0500 Heart rate 83 /min Radha Lori PA-C Work Phone: [facility] 07-30-2022 15:00-0500 Respiratory rate 18 /min Radha Lori PA-C Work Phone: [facility] 07-30-2022 15:00-0500 SaO2% (BldA) [Mass fraction] 97 % Radha Lori PA-C Work Phone: [facility] 07-30-2022 15:00-0500 Systolic blood pressure 97 mm[Hg] Radha Lori PA-C Work Phone: [facility] 07-23-2022 14:23-0500 Body height 166.1 cm Asher Hummel MD Work Phone: [facility] 07-23-2022 14:23-0500 Body temperature 97.81 [degF] Asher Hummel MD Work Phone: [facility] 07-23-2022 14:23-0500 Body weight 105.69 kg Asher Hummel MD Work Phone: [facility] 07-23-2022 14:23-0500 Diastolic blood pressure 58 mm[Hg] Asher Hummel MD Work Phone: [facility] 07-23-2022 14:23-0500 Heart rate 65 /min Asher Hummel MD Work Phone: [facility] 07-23-2022 14:23-0500 Respiratory rate 16 /min Asher Hummel MD Work Phone: [facility] 07-23-2022 14:23-0500 SaO2% (BldA) [Mass fraction] 95 % Asher Hummel MD Work Phone: [facility] 07-23-2022 14:23-0500 Systolic blood pressure 103 mm[Hg] Asher Hummel MD Work Phone: [facility] 07-16-2022 13:59-0500 Body temperature 98.01 [degF] Elysia Esposito MD Work Phone: [facility] 07-16-2022 13:59-0500 Body weight 106.87 kg Elysia Esposito MD Work Phone: [facility] 07-16-2022 13:59-0500 Diastolic blood pressure 59 mm[Hg] Elysia Esposito MD Work Phone: [facility] 07-16-2022 13:59-0500 Heart rate 50 /min Elysia Esposito MD Work Phone: [facility] 07-16-2022 13:59-0500 Respiratory rate 18 /min Elysia Esposito MD Work Phone: [facility] 07-16-2022 13:59-0500 SaO2% (BldA) [Mass fraction] 96 % Elysia Esposito MD Work Phone: [facility] 07-16-2022 13:59-0500 Systolic blood pressure 107 mm[Hg] Elysia Esposito MD Work Phone: [facility] 07-15-2022 15:02-0500 Body height 166.1 cm Chair Monteagle Work Phone: [facility] 07-15-2022 15:02-0500 Body weight 106.2 kg Chair Monteagle Work Phone: [facility] 07-15-2022 14:22-0500 Body height 166.1 cm Ahser Hummel MD Work Phone: [facility] 07-15-2022 14:22-0500 Body temperature 97.59 [degF] Asher Hummel MD Work Phone: [facility] 07-15-2022 14:22-0500 Body weight 106.23 kg Asher Hummel MD Work Phone: [facility] 07-15-2022 14:22-0500 Diastolic blood pressure 43 mm[Hg] Asher Hummel MD Work Phone: [facility] 07-15-2022 14:22-0500 Heart rate 56 /min Asher Hummel MD Work Phone: [facility] 07-15-2022 14:22-0500 Respiratory rate 16 /min Asher Hummel MD Work Phone: [facility] 07-15-2022 14:22-0500 SaO2% (BldA) [Mass fraction] 93 % Asher Hummel MD Work Phone: [facility] 07-15-2022 14:22-0500 Systolic blood pressure 103 mm[Hg] Asher Hummel MD Work Phone: [facility] 07-09-2022 14:11-0500 Body temperature 97.2 [degF] Chair Roman Work Phone: [facility] 07-09-2022 14:11-0500 Diastolic blood pressure 71 mm[Hg] Chair Roman Work Phone: [facility] 07-09-2022 14:11-0500 Heart rate 68 /min Chair Roman Work Phone: [facility] 07-09-2022 14:11-0500 Respiratory rate 16 /min Chair Monteagle Work Phone: [facility] 07-09-2022 14:11-0500 Systolic blood pressure 107 mm[Hg] Chair Roman Work Phone: [facility] 07-08-2022 14:22-0500 Body height 166.1 cm Radha Lori PA-C Work Phone: [facility] 07-08-2022 14:22-0500 Body temperature 97.59 [degF] Radha Lori PA-C Work Phone: [facility] 07-08-2022 14:22-0500 Body weight 106.41 kg Radha Lori PA-C Work Phone: [facility] 07-08-2022 14:22-0500 Diastolic blood pressure 42 mm[Hg] Radha Lori PA-C Work Phone: [facility] 07-08-2022 14:22-0500 Heart rate 59 /min Radha Lori PA-C Work Phone: [facility] 07-08-2022 14:22-0500 Respiratory rate 18 /min Radha Lori PA-C Work Phone: [facility] 07-08-2022 14:22-0500 SaO2% (BldA) [Mass fraction] 97 % Radha Lori PA-C Work Phone: [facility] 07-08-2022 14:22-0500 Systolic blood pressure 99 mm[Hg] Radha Lori PA-C Work Phone: [facility] 07-02-2022 14:23-0500 Body temperature 97.9 [degF] Chair Monteagle Work Phone: [facility] 07-02-2022 14:23-0500 Diastolic blood pressure 62 mm[Hg] Chair Monteagle Work Phone: [facility] 07-02-2022 14:23-0500 Heart rate 50 /min Chair Monteagle Work Phone: [facility] 07-02-2022 14:23-0500 Respiratory rate 18 /min Chair Roman Work Phone: [facility] 07-02-2022 14:23-0500 SaO2% (BldA) [Mass fraction] 100 % Chair Roman Work Phone: [facility] 07-02-2022 14:23-0500 Systolic blood pressure 121 mm[Hg] Chair Roman Work Phone: [facility] 07-01-2022 14:15-0500 Body height 166.1 cm Asher Hummel MD Work Phone: [facility] 07-01-2022 14:15-0500 Body temperature 97.59 [degF] Asher Hummel MD Work Phone: [facility] 07-01-2022 14:15-0500 Body weight 105.05 kg Asher Hummel MD Work Phone: [facility] 07-01-2022 14:15-0500 Diastolic blood pressure 54 mm[Hg] Asher Hummel MD Work Phone: [facility] 07-01-2022 14:15-0500 Heart rate 77 /min Asher Hummel MD Work Phone: [facility] 07-01-2022 14:15-0500 Respiratory rate 16 /min Asher Hummel MD Work Phone: [facility] 07-01-2022 14:15-0500 SaO2% (BldA) [Mass fraction] 95 % Asher Hummel MD Work Phone: [facility] 07-01-2022 14:15-0500 Systolic blood pressure 104 mm[Hg] Asher Hummel MD Work Phone: [facility] 06-25-2022 13:35-0500 Body temperature 97.9 [degF] Chair Roman Work Phone: [facility] 06-25-2022 13:35-0500 Diastolic blood pressure 51 mm[Hg] Chair Monteagle Work Phone: [facility] 06-25-2022 13:35-0500 Heart rate 61 /min Chair Monteagle Work Phone: [facility] 06-25-2022 13:35-0500 Respiratory rate 18 /min Chair Roman Work Phone: [facility] 06-25-2022 13:35-0500 SaO2% (BldA) [Mass fraction] 99 % Chair Monteagle Work Phone: [facility] 06-25-2022 13:35-0500 Systolic blood pressure 113 mm[Hg] Chair Monteagle Work Phone: [facility] 06-24-2022 13:19-0500 Body height 166.1 cm Wilfred Martinez APRN.DERRICK HELPER Work Phone: [facility] 06-24-2022 13:19-0500 Body temperature 97.39 [degF] Wilfred Martinez APRN.DERRICK HELPER Work Phone: [facility] 06-24-2022 13:19-0500 Body weight 104.6 kg Wilfred Martinez APRN.DERRICK HELPER Work Phone: [facility] 06-24-2022 13:19-0500 Diastolic blood pressure 52 mm[Hg] Wilfred Martinez APRN.DERRICK HELPER Work Phone: [facility] 06-24-2022 13:19-0500 Heart rate 74 /min Wilfred Martinez APRN.DERRICK HELPER Work Phone: [facility] 06-24-2022 13:19-0500 Respiratory rate 16 /min Wilfred Martinez APRN.DERRICK HELPER Work Phone: [facility] 06-24-2022 13:19-0500 SaO2% (BldA) [Mass fraction] 95 % Wilfred Martinez APRN.DERRICK HELPER Work Phone: [facility] 06-24-2022 13:19-0500 Systolic blood pressure 97 mm[Hg] Wilfred Martinez APRN.CNP Work Phone: [facility] 06-18-2022 13:26-0500 Body temperature 97.7 [degF] Chair Roman Work Phone: [facility] 06-18-2022 13:26-0500 Diastolic blood pressure 74 mm[Hg] Chair Monteagle Work Phone: [facility] [facility] 06-18-2022 13:26-0500 Heart rate 65 /min Chair Monteagle Work Phone: [facility] 06-18-2022 13:26-0500 Respiratory rate 16 /min Chair Monteagle Work Phone: [facility] 06-18-2022 13:26-0500 SaO2% (BldA) [Mass fraction] 100 % Chair Monteagle Work Phone: [facility] 06-18-2022 13:26-0500 Systolic blood pressure 103 mm[Hg] Chair Monteagle Work Phone: [facility] 06-17-2022 10:04-0500 Body height 166.1 cm Asher Hummel MD Work Phone: [facility] 06-17-2022 10:04-0500 Body temperature 97.11 [degF] Asher Hummel MD Work Phone: [facility] 06-17-2022 10:04-0500 Body weight 105.23 kg Asher Hummel MD Work Phone: [facility] 06-17-2022 10:04-0500 Diastolic blood pressure 57 mm[Hg] Asher Hummel MD Work Phone: [facility] 06-17-2022 10:04-0500 Heart rate 67 /min Asher Hummel MD Work Phone: [facility] 06-17-2022 10:04-0500 Respiratory rate 18 /min Asher Hummel MD Work Phone: [facility] 06-17-2022 10:04-0500 SaO2% (BldA) [Mass fraction] 96 % Asher Hummel MD Work Phone: [facility] 06-17-2022 10:04-0500 Systolic blood pressure 108 mm[Hg] Asher Hummel MD Work Phone: [facility] 06-11-2022 14:00-0500 Body temperature 98.1 [degF] Chair Monteagle Work Phone: [facility] 06-11-2022 14:00-0500 Diastolic blood pressure 84 mm[Hg] Chair Roman Work Phone: [facility] 06-11-2022 14:00-0500 Heart rate 74 /min Chair Monteagle Work Phone: [facility] 06-11-2022 14:00-0500 Respiratory rate 18 /min Chair Roman Work Phone: [facility] 06-11-2022 14:00-0500 SaO2% (BldA) [Mass fraction] 95 % Chair Monteagle Work Phone: [facility] 06-11-2022 14:00-0500 Systolic blood pressure 121 mm[Hg] Chair Monteagle Work Phone: [facility] 06-10-2022 14:17-0500 Body height 166.1 cm Radha Lori PA-C Work Phone: [facility] 06-10-2022 14:17-0500 Body temperature 97.3 [degF] Radha Lori PA-C Work Phone: [facility] 06-10-2022 14:17-0500 Body weight 105.51 kg Radha Lori PA-C Work Phone: [facility] 06-10-2022 14:17-0500 Diastolic blood pressure 49 mm[Hg] Radha Lori PA-C Work Phone: [facility] 06-10-2022 14:17-0500 Heart rate 78 /min Radha Harriser PA-C Work Phone: [facility] 06-10-2022 14:17-0500 Respiratory rate 20 /min Radha Lori PA-C Work Phone: [facility] 06-10-2022 14:17-0500 SaO2% (BldA) [Mass fraction] 94 % Radha Lori PA-C Work Phone: [facility] 06-10-2022 14:17-0500 Systolic blood pressure 111 mm[Hg] Radha Lori PA-C Work Phone: [facility] 06-03-2022 13:15-0500 Body height 166.1 cm Asher Hummel MD Work Phone: [facility] 06-03-2022 13:15-0500 Body temperature 97.2 [degF] Asher Hummel MD Work Phone: [facility] 06-03-2022 13:15-0500 Body weight 108.68 kg Asher Hummel MD Work Phone: [facility] 06-03-2022 13:15-0500 Diastolic blood pressure 59 mm[Hg] Asher Hummel MD Work Phone: [facility] 06-03-2022 13:15-0500 Heart rate 73 /min Asher Hummel MD Work Phone: [facility] 06-03-2022 13:15-0500 Respiratory rate 20 /min Asher Hummel MD Work Phone: [facility] 06-03-2022 13:15-0500 SaO2% (BldA) [Mass fraction] 95 % Asher Hummel MD Work Phone: [facility] 06-03-2022 13:15-0500 Systolic blood pressure 97 mm[Hg] Asher Hummel MD Work Phone: [facility] 05-28-2022 13:20-0400 Body temperature 97.39 [degF] Chair Monteagle Work Phone: [facility] 05-28-2022 13:20-0400 Diastolic blood pressure 56 mm[Hg] Chair Monteagle Work Phone: [facility] 05-28-2022 13:20-0400 Heart rate 60 /min Chair Monteagle Work Phone: [facility] 05-28-2022 13:20-0400 Respiratory rate 18 /min Chair Roman Work Phone: [facility] 05-28-2022 13:20-0400 SaO2% (BldA) [Mass fraction] 98 % Chair Monteagle Work Phone: [facility] 05-28-2022 13:20-0400 Systolic blood pressure 120 mm[Hg] Chair Monteagle Work Phone: [facility] 05-27-2022 13:34-0400 Body temperature 97.3 [degF] Chair Monteagle Work Phone: [facility] 05-27-2022 13:34-0400 Diastolic blood pressure 55 mm[Hg] Chair Monteagle Work Phone: [facility] 05-27-2022 13:34-0400 Heart rate 62 /min Chair Monteagle Work Phone: [facility] 05-27-2022 13:34-0400 Respiratory rate 18 /min Chair Monteagle Work Phone: [facility] 05-27-2022 13:34-0400 SaO2% (BldA) [Mass fraction] 98 % Chair Roman Work Phone: [facility] 05-27-2022 13:34-0400 Systolic blood pressure 120 mm[Hg] Chair Monteagle Work Phone: [facility] 05-21-2022 10:25-0400 Body temperature 98.01 [degF] Chair Monteagle Work Phone: [facility] 05-21-2022 10:25-0400 Diastolic blood pressure 57 mm[Hg] Chair Monteagle Work Phone: [facility] 05-21-2022 10:25-0400 Heart rate 53 /min Chair Monteagle Work Phone: [facility] 05-21-2022 10:25-0400 Respiratory rate 20 /min Chair Roman Work Phone: [facility] 05-21-2022 10:25-0400 SaO2% (BldA) [Mass fraction] 99 % Chair Monteagle Work Phone: [facility] 05-21-2022 10:25-0400 Systolic blood pressure 115 mm[Hg] Chair Roman Work Phone: [facility] 05-20-2022 13:54-0400 Body height 166.1 cm Asher Hummel MD Work Phone: [facility] 05-20-2022 13:54-0400 Body temperature 97.5 [degF] Asher Hummel MD Work Phone: [facility] 05-20-2022 13:54-0400 Body weight 108.14 kg Asher Hummel MD Work Phone: [facility] 05-20-2022 13:54-0400 Diastolic blood pressure 47 mm[Hg] Asher Hummel MD Work Phone: [facility] 05-20-2022 13:54-0400 Heart rate 74 /min Asher Hummel MD Work Phone: [facility] 05-20-2022 13:54-0400 Respiratory rate 18 /min Asher Hummel MD Work Phone: [facility] 05-20-2022 13:54-0400 SaO2% (BldA) [Mass fraction] 94 % Asher Hummel MD Work Phone: [facility] 05-20-2022 13:54-0400 Systolic blood pressure 121 mm[Hg] Asher Hummel MD Work Phone: [facility] 05-13-2022 14:48-0400 Body temperature 97.39 [degF] Lab/Port Monteagle Work Phone: [facility] 05-13-2022 14:48-0400 Diastolic blood pressure 61 mm[Hg] [facility] Monteagle Work Phone: [facility] 05-13-2022 14:48-0400 Heart rate 89 /min Lab[facility] Monteagle Work Phone: [facility] 05-13-2022 14:48-0400 Respiratory rate 18 /min Lab[facility] Monteagle Work Phone: [facility] 05-13-2022 14:48-0400 SaO2% (BldA) [Mass fraction] 96 % [facility] Monteagle Work Phone: [facility] 05-13-2022 14:48-0400 Systolic blood pressure 107 mm[Hg] [facility] Monteagle Work Phone: [facility] 05-06-2022 16:19-0400 Body height 167.1 cm Asher Hummel MD Work Phone: [facility] 05-06-2022 16:19-0400 Body temperature 97.5 [degF] Asher Hummel MD Work Phone: [facility] 05-06-2022 16:19-0400 Body weight 111.77 kg Asher Hummel MD Work Phone: [facility] 05-06-2022 16:19-0400 Diastolic blood pressure 83 mm[Hg] Asher Hummel MD Work Phone: [facility] 05-06-2022 16:19-0400 Heart rate 65 /min Asher Hummel MD Work Phone: [facility] 05-06-2022 16:19-0400 Respiratory rate 16 /min Asher Hummle MD Work Phone: [facility] 05-06-2022 16:19-0400 SaO2% (BldA) [Mass fraction] 94 % Asher Hummel MD Work Phone: [facility] 05-06-2022 16:19-0400 Systolic blood pressure 140 mm[Hg] Asher Hummel MD Work Phone: [facility] 04-29-2022 12:49-0400 Body height 167.1 cm Asher Hummel MD Work Phone: [facility] 04-29-2022 12:49-0400 Body temperature 97.81 [degF] Asher Hummel MD Work Phone: [facility] 04-29-2022 12:49-0400 Body weight 108.95 kg Asher Hummel MD Work Phone: [facility] 04-29-2022 12:49-0400 Diastolic blood pressure 64 mm[Hg] Asher Hummel MD Work Phone: [facility] 04-29-2022 12:49-0400 Heart rate 55 /min Asher Hummel MD Work Phone: [facility] 04-29-2022 12:49-0400 Respiratory rate 20 /min Asher Hummel MD Work Phone: [facility] 04-29-2022 12:49-0400 SaO2% (BldA) [Mass fraction] 92 % Asher Hummel MD Work Phone: [facility] 04-29-2022 12:49-0400 Systolic blood pressure 119 mm[Hg] Asher Hummel MD Work Phone: [facility] 04-25-2022 07:52-0400 Body height 167.1 cm Asher Hummel MD Work Phone: [facility] 04-25-2022 07:52-0400 Body temperature 97.2 [degF] Asher Hummel MD Work Phone: [facility] 04-25-2022 07:52-0400 Body weight 109.59 kg Asher Hummel MD Work Phone: [facility] 04-25-2022 07:52-0400 Diastolic blood pressure 59 mm[Hg] Asher Hummel MD Work Phone: [facility] 04-25-2022 07:52-0400 Heart rate 54 /min Asher Hummel MD Work Phone: [facility] 04-25-2022 07:52-0400 Respiratory rate 18 /min Asher Hummel MD Work Phone: [facility] 04-25-2022 07:52-0400 SaO2% (BldA) [Mass fraction] 94 % Asher Hummel MD Work Phone: [facility] 04-25-2022 07:52-0400 Systolic blood pressure 131 mm[Hg] Asher Hummel MD Work Phone: [facility] 04-18-2022 13:54-0400 Body height 167.1 cm Elysia Esposito MD Work Phone: [facility] 04-18-2022 13:54-0400 Body temperature 98.2 [degF] Elysia Esposito MD Work Phone: [facility] 04-18-2022 13:54-0400 Body weight 109.63 kg Elysia Esposito MD Work Phone: [facility] 04-18-2022 13:54-0400 Diastolic blood pressure 50 mm[Hg] Elysia Esposito MD Work Phone: [facility] 04-18-2022 13:54-0400 Heart rate 63 /min Elysia Esposito MD Work Phone: [facility] 04-18-2022 13:54-0400 Respiratory rate 22 /min Elysia Esposito MD Work Phone: [facility] 04-18-2022 13:54-0400 SaO2% (BldA) [Mass fraction] 98 % Elysia Esposito MD Work Phone: [facility] 04-18-2022 13:54-0400 Systolic blood pressure 135 mm[Hg] Elysia Esposito MD Work Phone: [facility] 04-08-2022 14:25-0400 Body height 165.2 cm Asher Hummel MD Work Phone: [facility] 04-08-2022 14:25-0400 Body temperature 97.3 [degF] Asher Hummel MD Work Phone: [facility] 04-08-2022 14:25-0400 Body weight 111.4 kg Asher Hummel MD Work Phone: [facility] 04-08-2022 14:25-0400 Diastolic blood pressure 62 mm[Hg] Asher Hummel MD Work Phone: [facility] 04-08-2022 14:25-0400 Heart rate 65 /min Asher Hummel MD Work Phone: [facility] 04-08-2022 14:25-0400 Respiratory rate 16 /min Asher Hummel MD Work Phone: [facility] 04-08-2022 14:25-0400 SaO2% (BldA) [Mass fraction] 94 % Asher Hummel MD Work Phone: [facility] 04-08-2022 14:25-0400 Systolic blood pressure 99 mm[Hg] Asher Hummel MD Work Phone: [facility] 03-25-2022 14:20-0400 Body temperature 98.1 [degF] Lab/Port Roman Work Phone: [facility] 03-25-2022 14:20-0400 Diastolic blood pressure 44 mm[Hg] Lab[facility] Monteagle Work Phone: [facility] 03-25-2022 14:20-0400 Heart rate 66 /min Lab/Port Roman Work Phone: [facility] 03-25-2022 14:20-0400 Respiratory rate 18 /min Lab/Port Roman Work Phone: [facility] 03-25-2022 14:20-0400 SaO2% (BldA) [Mass fraction] 96 % Lab[facility] Monteagle Work Phone: [facility] 03-25-2022 14:20-0400 Systolic blood pressure 109 mm[Hg] Lab[facility] Monteagle Work Phone: [facility] 03-15-2022 13:58-0400 Heart rate 58 /min Chair Monteagle Work Phone: [facility] 03-15-2022 13:21-0400 Body temperature 97.81 [degF] Chair Roman Work Phone: [facility] 03-15-2022 13:21-0400 Diastolic blood pressure 49 mm[Hg] Chair Monteagle Work Phone: [facility] 03-15-2022 13:21-0400 Respiratory rate 18 /min Chair Monteagle Work Phone: [facility] 03-15-2022 13:21-0400 SaO2% (BldA) [Mass fraction] 97 % Chair Monteagle Work Phone: [facility] 03-15-2022 13:21-0400 Systolic blood pressure 111 mm[Hg] Chair Monteagle Work Phone: [facility] 03-14-2022 14:46-0400 Body temperature 97.81 [degF] Chair Monteagle Work Phone: [facility] 03-14-2022 14:46-0400 Diastolic blood pressure 63 mm[Hg] Chair Roman Work Phone: [facility] 03-14-2022 14:46-0400 Heart rate 64 /min Chair Monteagle Work Phone: [facility] 03-14-2022 14:46-0400 Respiratory rate 18 /min Chair Roman Work Phone: [facility] 03-14-2022 14:46-0400 SaO2% (BldA) [Mass fraction] 96 % Chair Roman Work Phone: [facility] 03-14-2022 14:46-0400 Systolic blood pressure 107 mm[Hg] Chair Roman Work Phone: [facility] 03-13-2022 14:41-0400 Body temperature 98.1 [degF] Chair Monteagle Work Phone: [facility] 03-13-2022 14:41-0400 Diastolic blood pressure 54 mm[Hg] Chair Roman Work Phone: [facility] 03-13-2022 14:41-0400 Heart rate 60 /min Chair Monteagle Work Phone: [facility] 03-13-2022 14:41-0400 Respiratory rate 20 /min Chair Roman Work Phone: [facility] 03-13-2022 14:41-0400 SaO2% (BldA) [Mass fraction] 97 % Chair Monteagle Work Phone: [facility] 03-13-2022 14:41-0400 Systolic blood pressure 116 mm[Hg] Chair Monteagle Work Phone: [facility] 03-11-2022 14:10-0400 Body height 165.2 cm Asher Hummel MD Work Phone: [facility] 03-11-2022 14:10-0400 Body temperature 97.3 [degF] Asher Hummel MD Work Phone: [facility] 03-11-2022 14:10-0400 Body weight 112.58 kg Asher Hummel MD Work Phone: [facility] 03-11-2022 14:10-0400 Diastolic blood pressure 38 mm[Hg] Asher Hummel MD Work Phone: [facility] 03-11-2022 14:10-0400 Heart rate 60 /min Asher Hummel MD Work Phone: [facility] 03-11-2022 14:10-0400 Respiratory rate 18 /min Asher Hummel MD Work Phone: [facility] 03-11-2022 14:10-0400 SaO2% (BldA) [Mass fraction] 98 % Asher Hummel MD Work Phone: [facility] 03-11-2022 14:10-0400 Systolic blood pressure 106 mm[Hg] Asher Hummel MD Work Phone: [facility] 02-25-2022 14:50-0400 Body temperature 98.1 [degF] Lab[facility] Monte[facility] Work Phone: [facility] 02-25-2022 14:50-0400 Diastolic blood pressure 56 mm[Hg] [facility] Monteagle Work Phone: [facility] 02-25-2022 14:50-0400 Heart rate 59 /min Lab/Port Roman Work Phone: [facility] 02-25-2022 14:50-0400 Respiratory rate 18 /min Lab[facility] Work Phone: [facility] 02-25-2022 14:50-0400 SaO2% (BldA) [Mass fraction] 100 % Lab[facility] Roman Work Phone: [facility] 02-25-2022 14:50-0400 Systolic blood pressure 110 mm[Hg] Lab/Port Roman Work Phone: [facility] 02-15-2022 13:15-0400 Body temperature 97.7 [degF] Chair Monteagle Work Phone: [facility] 02-15-2022 13:15-0400 Diastolic blood pressure 63 mm[Hg] Chair Monteagle Work Phone: [facility] 02-15-2022 13:15-0400 Heart rate 74 /min Chair Roman Work Phone: [facility] 02-15-2022 13:15-0400 Respiratory rate 18 /min Chair Monteagle Work Phone: [facility] 02-15-2022 13:15-0400 SaO2% (BldA) [Mass fraction] 99 % Chair Roman Work Phone: [facility] 02-15-2022 13:15-0400 Systolic blood pressure 109 mm[Hg] Chair Monteagle Work Phone: [facility] 02-14-2022 13:35-0400 Body temperature 97.59 [degF] Chair Monteagle Work Phone: [facility] 02-14-2022 13:35-0400 Diastolic blood pressure 79 mm[Hg] Chair Roman Work Phone: [facility] 02-14-2022 13:35-0400 Heart rate 65 /min Chair Roman Work Phone: [facility] 02-14-2022 13:35-0400 Respiratory rate 18 /min Chair Monteagle Work Phone: [facility] 02-14-2022 13:35-0400 SaO2% (BldA) [Mass fraction] 99 % Chair Monteagle Work Phone: [facility] 02-14-2022 13:35-0400 Systolic blood pressure 118 mm[Hg] Chair Monteagle Work Phone: [facility] 02-13-2022 13:10-0400 Body temperature 98.2 [degF] Chair Roman Work Phone: [facility] 02-13-2022 13:10-0400 Diastolic blood pressure 45 mm[Hg] Chair Monteagle Work Phone: [facility] 02-13-2022 13:10-0400 Heart rate 53 /min Chair Monteagle Work Phone: [facility] 02-13-2022 13:10-0400 Respiratory rate 18 /min Chair Roman Work Phone: [facility] 02-13-2022 13:10-0400 SaO2% (BldA) [Mass fraction] 99 % Chair Monteagle Work Phone: [facility] 02-13-2022 13:10-0400 Systolic blood pressure 101 mm[Hg] Chair Monteagle Work Phone: [facility] 02-12-2022 13:10-0400 Diastolic blood pressure 52 mm[Hg] Chair Monteagle Work Phone: [facility] 02-12-2022 13:10-0400 Heart rate 68 /min Chair Monteagle Work Phone: [facility] 02-12-2022 13:10-0400 Respiratory rate 18 /min Chair Roman Work Phone: [facility] 02-12-2022 13:10-0400 SaO2% (BldA) [Mass fraction] 98 % Chair Roman Work Phone: [facility] 02-12-2022 13:10-0400 Systolic blood pressure 98 mm[Hg] Chair Monteagle Work Phone: [facility] 02-11-2022 14:35-0400 Body height 165.2 cm Radha Lori PA-C Work Phone: [facility] 02-11-2022 14:35-0400 Body temperature 97 [degF] Radha Lori PA-C Work Phone: [facility] 02-11-2022 14:35-0400 Body weight 110.95 kg Radha Lori PA-C Work Phone: [facility] 02-11-2022 14:35-0400 Diastolic blood pressure 42 mm[Hg] Radha Lori PA-C Work Phone: [facility] 02-11-2022 14:35-0400 Heart rate 81 /min Radha Harriser PA-C Work Phone: [facility] 02-11-2022 14:35-0400 Respiratory rate 16 /min Radha Lori PA-C Work Phone: [facility] 02-11-2022 14:35-0400 SaO2% (BldA) [Mass fraction] 98 % Radha Lori PA-C Work Phone: [facility] 02-11-2022 14:35-0400 Systolic blood pressure 104 mm[Hg] Radha Lori PA-C Work Phone: [facility] 02-04-2022 13:25-0400 Body temperature 98.1 [degF] Lab[facility] Work Phone: [facility] 02-04-2022 13:25-0400 Diastolic blood pressure 63 mm[Hg] [facility] Work Phone: [facility] 02-04-2022 13:25-0400 Heart rate 88 /min [facility] Work Phone: [facility] 02-04-2022 13:25-0400 Respiratory rate 20 /min Lab/Port [place] Work Phone: [facility] 02-04-2022 13:25-0400 SaO2% (BldA) [Mass fraction] 99 % Lab/Port [place] Work Phone: [facility] 02-04-2022 13:25-0400 Systolic blood pressure 142 mm[Hg] Lab[facility] Work Phone: [facility] 01-30-2022 14:00-0400 Body temperature 98.2 [degF] Lab[facility] [place] Work Phone: [facility] 01-30-2022 14:00-0400 Diastolic blood pressure 54 mm[Hg] Lab[facility] Work Phone: [facility] 01-30-2022 14:00-0400 Heart rate 70 /min Lab[facility] [place] Work Phone: [facility] 01-30-2022 14:00-0400 Respiratory rate 18 /min Lab/[facility] Work Phone: [facility] 01-30-2022 14:00-0400 SaO2% (BldA) [Mass fraction] 98 % [facility] [place] Work Phone: [facility] 01-30-2022 14:00-0400 Systolic blood pressure 107 mm[Hg] Lab[facility] Work Phone: [facility] 01-21-2022 11:18-0400 Body temperature 97.81 [degF] Chair [place] Work Phone: [facility] 01-21-2022 11:18-0400 Diastolic blood pressure 52 mm[Hg] Chair [place] Work Phone: [facility] 01-21-2022 11:18-0400 Heart rate 78 /min Chair Roman Work Phone: [facility] 01-21-2022 11:18-0400 Respiratory rate 16 /min Chair Roman Work Phone: [facility] 01-21-2022 11:18-0400 SaO2% (BldA) [Mass fraction] 98 % Chair Roman Work Phone: [facility] 01-21-2022 11:18-0400 Systolic blood pressure 98 mm[Hg] Chair [place] Work Phone: [facility] 01-18-2022 13:20-0400 Body temperature 96.8 [degF] Chair Roman Work Phone: [facility] 01-18-2022 13:20-0400 Diastolic blood pressure 50 mm[Hg] Chair [place] Work Phone: [facility] 01-18-2022 13:20-0400 Heart rate 58 /min Chair Roman Work Phone: [facility] 01-18-2022 13:20-0400 Respiratory rate 18 /min Chair Roman Work Phone: [facility] 01-18-2022 13:20-0400 SaO2% (BldA) [Mass fraction] 99 % Chair [place] Work Phone: [facility] 01-18-2022 13:20-0400 Systolic blood pressure 116 mm[Hg] Chair Roman Work Phone: [facility] 01-17-2022 13:49-0400 Body temperature 97.3 [degF] Chair [place] Work Phone: [facility] 01-17-2022 13:49-0400 Diastolic blood pressure 68 mm[Hg] Chair [place] Work Phone: [facility] 01-17-2022 13:49-0400 Heart rate 56 /min Chair [place] Work Phone: [facility] 01-17-2022 13:49-0400 Respiratory rate 18 /min Chair [place] Work Phone: [facility] 01-17-2022 13:49-0400 SaO2% (BldA) [Mass fraction] 99 % Chair Roman Work Phone: [facility] 01-17-2022 13:49-0400 Systolic blood pressure 112 mm[Hg] Chair [place] Work Phone: [facility] 01-16-2022 13:06-0400 Body temperature 96.69 [degF] Chair [place] Work Phone: [facility] 01-16-2022 13:06-0400 Diastolic blood pressure 49 mm[Hg] Chair [place] Work Phone: [facility] 01-16-2022 13:06-0400 Heart rate 58 /min Chair [place] Work Phone: [facility] 01-16-2022 13:06-0400 Respiratory rate 18 /min Chair [place] Work Phone: [facility] 01-16-2022 13:06-0400 SaO2% (BldA) [Mass fraction] 98 % Chair Roman Work Phone: [facility] 01-16-2022 13:06-0400 Systolic blood pressure 109 mm[Hg] Chair [place] Work Phone: [facility] 01-15-2022 14:00-0400 Body temperature 98.29 [degF] Chair [place] Work Phone: [facility] 01-15-2022 14:00-0400 Diastolic blood pressure 57 mm[Hg] Chair [place] Work Phone: [facility] 01-15-2022 14:00-0400 Heart rate 72 /min Chair Roman Work Phone: [facility] 01-15-2022 14:00-0400 Respiratory rate 18 /min Chair [place] Work Phone: [facility] 01-15-2022 14:00-0400 SaO2% (BldA) [Mass fraction] 98 % Chair [place] Work Phone: [facility] 01-15-2022 14:00-0400 Systolic blood pressure 101 mm[Hg] Chair [place] Work Phone: [facility] 01-14-2022 13:24-0400 Body height 165.2 cm Asher Hummel MD Work Phone: [facility] 01-14-2022 13:24-0400 Body temperature 97.2 [degF] Asher Hummel MD Work Phone: [facility] 01-14-2022 13:24-0400 Body weight 108.14 kg Asher Hummel MD Work Phone: [facility] 01-14-2022 13:24-0400 Diastolic blood pressure 73 mm[Hg] Asher Hummel MD Work Phone: [facility] 01-14-2022 13:24-0400 Heart rate 64 /min Asher Hummel MD Work Phone: [facility] 01-14-2022 13:24-0400 Respiratory rate 16 /min Asher Hummel MD Work Phone: [facility] 01-14-2022 13:24-0400 SaO2% (BldA) [Mass fraction] 98 % Asher Hummel MD Work Phone: [facility] 01-14-2022 13:24-0400 Systolic blood pressure 126 mm[Hg] Asher Hummel MD Work Phone: [facility] 01-07-2022 14:00-0400 Body height 165.2 cm Ma Sand Work Phone: [facility] 01-07-2022 14:00-0400 Body temperature 97.59 [degF] Ma Sand Work Phone: [facility] 01-07-2022 14:00-0400 Body weight 101.15 kg Ma Sand Work Phone: [facility] 01-07-2022 14:00-0400 Diastolic blood pressure 56 mm[Hg] Ma Sand Work Phone: [facility] 01-07-2022 14:00-0400 Heart rate 70 /min Ma Sand Work Phone: [facility] 01-07-2022 14:00-0400 Respiratory rate 16 /min Ma Sand Work Phone: [facility] 01-07-2022 14:00-0400 SaO2% (BldA) [Mass fraction] 92 % Ma Sand Work Phone: [facility] 01-07-2022 14:00-0400 Systolic blood pressure 101 mm[Hg] Ma Sand Work Phone: [facility] 12-21-2021 13:24-0400 Body temperature 97.59 [degF] Chair Brayusky Work Phone: [facility] 12-21-2021 13:24-0400 Diastolic blood pressure 46 mm[Hg] Chair [place] Work Phone: [facility] 12-21-2021 13:24-0400 Heart rate 54 /min Chair [place] Work Phone: [facility] 12-21-2021 13:24-0400 Respiratory rate 18 /min Chair Roman Work Phone: [facility] 12-21-2021 13:24-0400 SaO2% (BldA) [Mass fraction] 97 % Chair [place] Work Phone: [facility] 12-21-2021 13:24-0400 Systolic blood pressure 127 mm[Hg] Chair [place] Work Phone: [facility] 12-20-2021 13:35-0400 Body temperature 97.7 [degF] Chair [place] Work Phone: [facility] 12-20-2021 13:35-0400 Diastolic blood pressure 55 mm[Hg] Chair Roman Work Phone: [facility] 12-20-2021 13:35-0400 Heart rate 57 /min Chair [place] Work Phone: [facility] 12-20-2021 13:35-0400 Respiratory rate 16 /min Chair [place] Work Phone: [facility] 12-20-2021 13:35-0400 SaO2% (BldA) [Mass fraction] 99 % Chair Roman Work Phone: [facility] 12-20-2021 13:35-0400 Systolic blood pressure 107 mm[Hg] Chair [place] Work Phone: [facility] 12-19-2021 13:32-0400 Body temperature 97.7 [degF] Chair [place] Work Phone: [facility] 12-19-2021 13:32-0400 Diastolic blood pressure 48 mm[Hg] Chair Roman Work Phone: [facility] 12-19-2021 13:32-0400 Heart rate 53 /min Chair Roman Work Phone: [facility] 12-19-2021 13:32-0400 Respiratory rate 18 /min Chair Roman Work Phone: [facility] 12-19-2021 13:32-0400 SaO2% (BldA) [Mass fraction] 97 % Chair Roman Work Phone: [facility] 12-19-2021 13:32-0400 Systolic blood pressure 113 mm[Hg] Chair Roman Work Phone: [facility] 12-17-2021 13:11-0400 Body height 165.2 cm Asher Hummel MD Work Phone: [facility] 12-17-2021 13:11-0400 Body temperature 97.3 [degF] Asher Hummel MD Work Phone: [facility] 12-17-2021 13:11-0400 Body weight 101.24 kg Asher Hummel MD Work Phone: [facility] 12-17-2021 13:11-0400 Diastolic blood pressure 53 mm[Hg] Asher Hummel MD Work Phone: [facility] 12-17-2021 13:11-0400 Heart rate 59 /min Asher Hummel MD Work Phone: [facility] 12-17-2021 13:11-0400 Respiratory rate 16 /min Asher Hummel MD Work Phone: [facility] 12-17-2021 13:11-0400 SaO2% (BldA) [Mass fraction] 88 % Asher Hummel MD Work Phone: [facility] 12-17-2021 13:11-0400 Systolic blood pressure 114 mm[Hg] Asher Hummel MD Work Phone: [facility] 11-29-2021 08:49-0400 Body height 165.2 cm Asher Hummel MD Work Phone: [facility] 11-29-2021 08:49-0400 Body temperature 97.81 [degF] Asher Hummel MD Work Phone: [facility] 11-29-2021 08:49-0400 Diastolic blood pressure 51 mm[Hg] Asher Hummel MD Work Phone: [facility] 11-29-2021 08:49-0400 Heart rate 58 /min Asher Hummel MD Work Phone: [facility] 11-29-2021 08:49-0400 Respiratory rate 16 /min Asher Hummel MD Work Phone: [facility] 11-29-2021 08:49-0400 SaO2% (BldA) [Mass fraction] 99 % Asher Hummel MD Work Phone: [facility] 11-29-2021 08:49-0400 Systolic blood pressure 134 mm[Hg] Asher Hummel MD Work Phone: [facility] 11-08-2021 16:00-0400 Body temperature 98.01 [degF] Lab[facility] [place] Work Phone: [facility] 11-08-2021 16:00-0400 Body weight 109.77 kg Lab[facility] [place] Work Phone: [facility] 11-08-2021 16:00-0400 Diastolic blood pressure 51 mm[Hg] [facility] [place] Work Phone: [facility] 11-08-2021 16:00-0400 Heart rate 80 /min Lab[facility] [place] Work Phone: [facility] 11-08-2021 16:00-0400 Respiratory rate 16 /min Lab/Port [place] Work Phone: [facility] 11-08-2021 16:00-0400 SaO2% (BldA) [Mass fraction] 92 % [facility] [place] Work Phone: [facility] 11-08-2021 16:00-0400 Systolic blood pressure 123 mm[Hg] Lab/Port [place] Work Phone: [facility] 11-01-2021 14:03-0400 Body temperature 98.2 [degF] Chair [place] Work Phone: [facility] 11-01-2021 14:03-0400 Diastolic blood pressure 59 mm[Hg] Chair [place] Work Phone: [facility] 11-01-2021 14:03-0400 Heart rate 78 /min Chair Roman Work Phone: [facility] 11-01-2021 14:03-0400 Respiratory rate 18 /min Chair [place] Work Phone: [facility] 11-01-2021 14:03-0400 SaO2% (BldA) [Mass fraction] 98 % Chair [place] Work Phone: [facility] 11-01-2021 14:03-0400 Systolic blood pressure 109 mm[Hg] Chair Roman Work Phone: [facility] 10-30-2021 13:55-0400 Body temperature 97.7 [degF] Chair [place] Work Phone: [facility] 10-30-2021 13:55-0400 Diastolic blood pressure 53 mm[Hg] Chair Roman Work Phone: [facility] 10-30-2021 13:55-0400 Heart rate 82 /min Chair [place] Work Phone: [facility] 10-30-2021 13:55-0400 Respiratory rate 18 /min Chair [place] Work Phone: [facility] 10-30-2021 13:55-0400 SaO2% (BldA) [Mass fraction] 97 % Chair [place] Work Phone: [facility] 10-30-2021 13:55-0400 Systolic blood pressure 107 mm[Hg] Chair Roman Work Phone: [facility] 10-29-2021 14:27-0400 Body temperature 97.81 [degF] Chair Roman Work Phone: [facility] 10-29-2021 14:27-0400 Body weight 109.41 kg Chair [place] Work Phone: [facility] 10-29-2021 14:27-0400 Diastolic blood pressure 40 mm[Hg] Chair [place] Work Phone: [facility] 10-29-2021 14:27-0400 Heart rate 72 /min Chair [place] Work Phone: [facility] 10-29-2021 14:27-0400 Respiratory rate 18 /min Chair Roman Work Phone: [facility] 10-29-2021 14:27-0400 SaO2% (BldA) [Mass fraction] 98 % Chair Roman Work Phone: [facility] 10-29-2021 14:27-0400 Systolic blood pressure 102 mm[Hg] Chair [place] Work Phone: [facility] 10-25-2021 14:02-0400 Diastolic blood pressure 48 mm[Hg] Wilfred Martinez APRN.DERRICK HELPER Work Phone: [facility] 10-25-2021 14:02-0400 Heart rate 80 /min Wilfred Martinez APRN.DERRICK HELPER Work Phone: [facility] 10-25-2021 14:02-0400 Systolic blood pressure 140 mm[Hg] Wilfred Martinez APRN.DERRICK HELPER Work Phone: [facility] 10-25-2021 14:00-0400 Body height 165.2 cm Wilfred Martinez APRN.DERRICK HELPER Work Phone: [facility] 10-25-2021 14:00-0400 Body temperature 97.5 [degF] Wilfred Michelle UX VISUAL DESIGNER.DERRICK HELPER Work Phone: [facility] 10-25-2021 14:00-0400 Body weight 108.77 kg Wilfred Martinez UX VISUAL DESIGNER.DERRICK HELPER Work Phone: [facility] 10-25-2021 14:00-0400 Respiratory rate 16 /min Wilfred Martinez UX VISUAL DESIGNER.DERRICK HELPER Work Phone: [facility] 10-25-2021 14:00-0400 SaO2% (BldA) [Mass fraction] 97 % Wilfred Martinez UX VISUAL DESIGNER.DERRICK HELPER Work Phone: [facility] 09-05-2021 15:03-0500 Body temperature 98.71 [degF] Chair [place] Work Phone: [facility] 09-05-2021 15:03-0500 Diastolic blood pressure 69 mm[Hg] Chair [place] Work Phone: [facility] 09-05-2021 15:03-0500 Heart rate 70 /min Chair [place] Work Phone: [facility] 09-05-2021 15:03-0500 Respiratory rate 20 /min Chair [place] Work Phone: [facility] 09-05-2021 15:03-0500 SaO2% (BldA) [Mass fraction] 98 % Chair Roman Work Phone: [facility] 09-05-2021 15:03-0500 Systolic blood pressure 118 mm[Hg] Chair Roman Work Phone: [facility] Encounters Encounter Date Encounter Type Care Provider Facility Start: 04-05-2024 ambulatory Jacquelin Hernandes Facility :[facility] Start: 04-02-2024 ambulatory Elena Rashid ty: [facility] Start: 01-15-2024 ambulatory Jacquelin Hernandes Facility :[facility] [place] Start: 10-20-2023 End: 10-20-2023 ambulatory BERNARDA BAUTISTAMIRadha Not Available Start: 10-17-2023 End: 10-17-2023 Emergency department patient visit Caryl Marie Facility:[facility] Start: 10-17-2023 End: 10-17-2023 Emergency department patient visit MD Jacquelin Hernandes Work Phone: [facility] Work Phone: Start: 10-13-2023 End: 10-14-2023 ambulatory Jacquelin Hernandes Facility: [facility] Start: 10-10-2023 End: 10-10-2023 ambulatory KAREN [facility] Start: 10-06-2023 End: 10-06-2023 ambulatory BERNARDA HYDE Not Available Start: 09-29-2023 End: 09-29-2023 ambulatory [facility] Start: 09-22-2023 End: 09-23-2023 ambulatory Elena DO Facility: [facility] Start: 08-29-2023 End: 08-29-2023 ambulatory [facility] Start: 08-19-2023 End: 08-20-2023 ambulatory [facility] Start: 07-17-2023 End: 07-17-[facility] Start: 07-15-2023 End: 07-16-2023 ambulatory Jacquelin Hernandes Facility: [facility] Start: 07-11-2023 End: 08-11-2023 ambulatory Jacquelin Hernandes Facility:[id number] Start: 04-16-2023 End: 04-17-2023 ambulatory Jacquelin Hernandes Facility: [facility] Start: 03-17-2023 ambulatory Jacquelin Hernandes Facility : [facility] Start: 03-14-2023 End: 03-14-2023 ambulatory [facility] Start: 03-11-2023 End: 03-12-2023 ambulatory Mhd Lyle Lu Facility:[facility] Start: 03-11-2023 End: 03-12-2023 ambulatory Mhd Lyle Lu Facility:[facility] Start: 03-11-2023 End: 03-11-2023 Patient encounter procedure Mhd Lyle Lu [facility] Start: 03-10-2023 End: 03-11-2023 ambulatory Jacquelin Hernandes Facility:[facility] Start: 02-13-2023 End: 02-14-2023 ambulatory Jacquelin HoldenLianna Hernandes Facility:[facility] Start: 01-10-2023 End: 01-11-2023 ambulatory Malinda L Earl Facility:[facility] Start: 01-10-2023 End: 01-11-2023 ambulatory Jacquelin ELianna Hernandes Facility:[facility] Start: 01-10-2023 End: 01-10-2023 Lab Drop off Malinda L Earl [facility] Start: 01-10-2023 End: 01-10-2023 Lab Drop off Jacquelin HoldenLianna Mick [facility] Start: 01-06-2023 End: 01-07-2023 ambulatory Jacquelin Hernandes Facility:[facility] Start: 01-06-2023 End: 01-07-2023 ambulatory Jacquelin Davies Mick Facility:[facility]ian sosa Start: 12-30-2022 Refill Oumou Wade MD Work Phone: Otolaryngology Comment on above: Refill Request Start: 12-10-2022 End: 12-25-[address] FLASH PEARL . Facility: Start: 12-04-2022 End: 12-24-[address] FLASH PEARL . Facility: Start: 12-03-2022 End: 12-04-[address] FLASH PEARL . Facility: Start: 11-20-2022 End: 11-20-2022 ambulatory ASHER HUMMEL Facility:[facility] Start: 11-20-2022 End: 11-20-2022 Office outpatient [...] Start: 11-20-2022 End: 11-21-2022 ambulatory FLASH PEARL Facility:[facility]ian [facility] Start: 11-20-2022 Telephone encounter Angle parmar RN Work Phone: Hematology/Oncology Comment on above: Care Coordination (H ospice/Treatment Update) Start: 11-19-2022 Telephone encounter Angle parmar RN Work Phone: Hematology/Oncology Comment on above: Care Coordination (P t Update) Start: 11-14-2022 End: 11-17-2022 Evaluation and management of inpatient MARICRUZ BOGGS . Facility: Start: 11-13-2022 End: 11-14-2022 ambulatory Malinda Elliott Facility:[facility]ian sosa Start: 11-12-2022 End: 11-13-2022 ambulatory Jasper MARIE Facility: [facility] Start: 11-06-2022 End: 11-13-[address] DOCTOR TOM Facility: Start: 11-06-2022 Patient encounter procedure [facility] Provider [facility] Department Start: 11-06-2022 Telephone encounter Asher frances MD Work Phone: [facility] Comment on above: Results Care Coordination (C BC Results) Start: 10-30-2022 End: 10-30-2022 ambulatory Chair Billy Owens Work Phone: Hematology/Oncology Comment on above: Anemia of chronic re nal failure, stage 4 (severe) (HCC) (Primary Dx); 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 loss; MDS (myelodysplastic syndrome) (HCC) Start: 10-25-2022 Patient encounter procedure [facility] Provider [facility] Department Start: 10-25-2022 End: 10-25-[address] DOCTOR TOM Facility:[facility] Start: 10-24-2022 Telephone encounter Angle parmar RN Work Phone: Hematology/Oncology Comment on above: Care Coordination (C BC Results; Transfusion) Start: 10-23-2022 End: 10-23-2022 ambulatory FLASH PEARL Facility:[facility] Start: 10-23-2022 End: 10-23-2022 ambulatory Lab/Port Sam [place] Work Phone: Hematology/Oncology Comment on above: MDS (myelodysplastic syndrome) (HCC) (Primary Dx) Start: 10-17-2022 Patient encounter procedure [facility] Provider [facility] Department Start: 10-17-2022 Telephone encounter Angle parmar RN Work Phone: Hematology/Oncology Comment on above: Care Coordination (T ransfusion Orders) Start: 10-16-2022 End: 10-16-2022 ambulatory FLASH PEARL Facility:[facility] Start: 10-16-2022 End: 10-16-2022 ambulatory Lab/Port Sam [place] Work Phone: Hematology/Oncology Comment on above: MDS (myelodysplastic syndrome) (HCC) (Primary Dx); Anemia of chronic renal failure, stage 4 (severe) (HCC) Start: 10-16-2022 Patient encounter procedure [facility] Provider [facility] Start: 10-15-2022 End: 10-15-2022 ambulatory FLASH PEARL Facility:[facility] Start: 10-15-2022 End: 10-15-2022 ambulatory Elysia Esposito MD Work Phone: Hematology/Oncology Comment on above: MDS (myelodysplastic syndrome) (HCC) (Primary Dx); Anemia, unspecified type Start: 10-15-2022 End: 10-15-2022 Patient encounter procedure Elysia Esposito MD Work Phone: [facility] Start: 10-09-2022 End: 10-09-2022 ambulatory ASHER HUMMEL Facility:[facility] Start: 10-09-2022 End: 10-09-2022 ambulatory Chair Elena Owens Work Phone: Hematology/Oncology Comment on above: MDS (myelodysplastic syndrome) (HCC) (Primary Dx); Anemia of chronic renal failure, stage 4 (severe) (HCC); 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 loss Start: 10-03-2022 Patient encounter procedure [facility] Provider [facility] Start: 10-02-2022 End: 10-02-2022 ambulatory FLASH STEVEGERARDO PEARL Facility:[facility] Start: 10-02-2022 Telephone encounter Asher frances MD Work Phone: [facility] Comment on above: Future Appointment Start: 09-25-2022 End: 10-17-[address] DOCTOR TOM Facility:[facility] Start: 09-25-2022 End: 09-25-2022 ambulatory FLASH PEARL Facility:[facility] Start: 09-25-2022 Telephone encounter Angle parmar RN Work Phone: Hematology/Oncology Comment on above: Care Coordination (C BC Results; Transfusion) Start: 09-18-2022 End: 09-18-2022 ambulatory Chair Cervantes Monteagle Work Phone: Hematology/Oncology Comment on above: Anemia [...] Start: 09-12-2022 Patient encounter procedure [facility] Provider [facility] Start: 09-11-2022 End: 09-11-2022 ambulatory FLASH LENO PEARL Facility:[facility] Start: 09-11-2022 Telephone encounter Angle parmar RN Work Phone: Hematology/Oncology Comment on above: Care Coordination (C BC Results) Start: 09-05-2022 End: 09-13-[address] DOCTOR TOM Facility:[facility] Start: 09-04-2022 End: 09-04-2022 ambulatory FLASH [facility] Facility:[facility] Start: 09-04-2022 Patient encounter procedure [facility] Provider [facility] Start: 09-04-2022 Telephone encounter Asher frances MD Work Phone: [facility] Comment on above: Future Appointment Start: 08-28-2022 [...] (HCC) Start: 08-27-2022 End: 08-27-2022 ambulatory FLASH [facility] Facility:[facility] Start: 08-26-2022 Telephone encounter Angle parmar RN Work Phone: Hematology/Oncology Comment on above: Care Coordination (M edication Authorization) Start: 08-22-2022 Patient encounter procedure [facility] Provider [facility] Start: 08-22-2022 Telephone encounter Angle parmar RN Work Phone: Hematology/Oncology Comment on above: Care Coordination (T ransfusion Question) Start: 08-21-2022 Telephone encounter Wilfred smith APRN.CNP [facility] Phone: [facility] Comment on above: Future [...] End: 08-21-2022 Patient encounter procedure Wilfred Martinez APRN.RAMONA Work Phone: [facility] Start: 08-14-2022 End: 08-14-2022 Patient encounter procedure Wilfred Martinez APRN.RAMONA Work Phone: [facility] Start: 08-14-2022 Telephone encounter Wilfred smith APRN.RAMONA Work Phone: [facility] Comment on above: Future Appointment Care [...] Start: 08-08-2022 Patient encounter procedure [facility] Provider [facility] Start: 08-08-2022 End: 08-22-[address] SORIA [facility] Facility: Start: 08-07-2022 End: 08-07-2022 ambulatory Chair [...] Start: 07-23-2022 End: 07-23-2022 ambulatory ASHER HUMMEL Facility:[facility] Start: 07-23-2022 End: 07-23-2022 ambulatory Chair Billy Owens Work Phone: Hematology/Oncology Comment on above: Myelodysplastic synd sommer (HCC) (Primary Dx) MDS (myelodysplastic syndrome) (HCC) (Primary Dx); 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 transfusions; Anemia of chronic renal failure, stage 4 (severe) (HCC); Myelodysplastic syndrome (HCC) Start: 07-23-2022 End: 07-23-2022 Patient encounter procedure [facility] Start: 07-23-2022 Telephone encounter Asher frances MD Work Phone: [facility] Comment on above: Transfusion Start: 07-18-2022 Telephone encounter Angle Kamara Hematology/Oncology Comment on above: Care Coordination (O xygen Question) Start: 07-16-2022 End: 07-16-2022 ambulatory FLASH PEARL Facility:[facility] Start: 07-16-2022 End: 07-16-2022 ambulatory Elysia Esposito MD Work Phone: Hematology/Oncology Comment on above: MDS (myelodysplastic syndrome) (HCC) (Primary Dx) Start: 07-16-2022 End: 07-16-2022 Patient encounter procedure Elysia Esposito MD Work Phone: [facility] Start: 07-15-2022 End: 07-16-2022 ambulatory ASHER HUMMEL Facility:[facility] Start: 07-15-2022 Telephone encounter Asher frances MD [facility] Phone: [facility] Comment on above: Future [...] Start: 07-09-2022 End: 07-10-2022 ambulatory ASHER HUMMEL Facility:[facility] Start: 07-09-2022 End: 07-09-2022 ambulatory Chair 18 Roman Work Phone: Hematology/Oncology Comment on above: Myelodysplastic synd sommer (HCC) (Primary Dx) Start: 07-09-2022 Patient encounter procedure [facility] Provider [facility] Start: 07-08-2022 End: 07-25-[address] RADHA SANDOVAL Facility: Start: 07-08-2022 End: 07-08-2022 ambulatory WILFRED MARTINEZ Facility:[facility] Start: 07-08-2022 End: 07-08-2022 ambulatory Radha [...] encounter Radha calzada PA-C Work Phone: [facility] Comment on above: Transfusion Start: 07-02-2022 End: 07-02-2022 ambulatory FLASH PEARL Facility:[facility] Start: 07-02-2022 End: 07-02-2022 ambulatory Chair 18 Roman Work Phone: Hematology/Oncology Comment on above: Myelodysplastic synd sommer (HCC) (Primary Dx) Start: 07-01-2022 End: 07-01-2022 ambulatory ASHER HUMMEL Facility:[facility] Start: 07-01-2022 End: 07-01-2022 ambulatory Asher [...] encounter procedure Asher Hummel MD Work Phone: [facility] Start: 06-25-2022 End: 06-26-2022 ambulatory Chair 17 Roman Work Phone: Hematology/Oncology Comment on above: Myelodysplastic synd sommer (HCC) (Primary Dx) Start: 06-24-2022 End: 06-24-2022 ambulatory FLASH PEARL Facility:[facility] Start: 06-24-2022 End: 06-24-2022 ambulatory Chair [...] encounter Asher frances MD Work Phone: [facility] Comment on above: Future Appointment Start: 06-17-2022 End: 06-17-2022 ambulatory FLASH LENO PEARL Facility:[facility] Start: 06-17-2022 End: 06-17-2022 ambulatory Asher [...] End: 06-10-2022 Patient encounter procedure [facility] Provider [facility] Start: 06-07-2022 Telephone encounter Asher frances MD Work Phone: Hematology/Oncology Comment on above: Critical Results Start: 06-04-2022 Patient encounter procedure [facility] Provider [facility] Start: 06-04-2022 End: 06-26-[address] DOCTOR TOM Facility:[facility] Start: 06-03-2022 End: 06-03-2022 ambulatory ASHER HUMMEL Facility:[facility] Start: 06-03-2022 Telephone encounter Asher frances MD Work Phone: [facility] Comment on above: Future Appointment Start: [...] encounter procedure Asher Hummel MD Work Phone: [facility] Start: 05-28-2022 End: 05-29-2022 ambulatory Chair Billy [...] Start: 05-23-[address] DOCTOR TOM Facility :[facility] Start: 05-21-2022 Patient encounter procedure [facility] Start: 05-21-2022 End: 05-21-2022 ambulatory ASHER HUMMEL Facility:[facility] Start: 05-21-2022 End: 05-21-2022 ambulatory Chair [...] encounter Asher frances MD Work Phone: [facility] Comment on above: Future Appointment Care Coordination (A ntiemetics) Start: 05-14-2022 Telephone encounter Angle Kamara Hematology/Oncology Comment on above: Care Coordination (T reatment Planning) Start: 05-13-2022 End: 05-14-2022 ambulatory ASHER HUMMEL Facility:[facility] Start: 05-13-2022 End: 05-13-2022 ambulatory Lab/Port Sam Owens Work Phone: Hematology/Oncology Comment on above: CRF (chronic renal f ailure), stage 4 (severe) (HCC) (Primary Dx); Anemia of chronic renal failure, stage 4 (severe) (HCC); 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 loss; CKD (chronic kidney disease) stage 4, GFR 15-29 ml/min (HCC); Myelodysplastic syndrome (HCC) Start: 05-07-2022 Patient encounter procedure [facility] Start: 05-07-2022 End: 05-24-[address] DOCTOR TOM Facility: Start: 05-06-2022 End: 05-06-2022 ambulatory FLASH WILSONGERARDO GOULDIGHT Facility:[facility] Start: 05-06-2022 End: 05-06-2022 ambulatory Lab/[facility] Owens Work Phone: Hematology/Oncology [...] encounter procedure Asher Hummel MD Work Phone: [facility] Start: 05-06-2022 Telephone encounter Asher frances MD Work Phone: [facility] Comment on above: Transfusion Start: 04-29-2022 [...] Asher Hummel MD Work Phone: [facility] Start: 04-25-2022 End: 04-25-2022 Patient encounter procedure [facility] Start: 04-25-2022 End: 04-25-2022 ambulatory ASHER HUMMEL Facility:[facility] Start: 04-25-2022 End: 04-25-2022 ambulatory Asher Hummel MD Work Phone: Hematology/Oncology Comment on above: Myelodysplastic synd sommer (HCC) (Primary Dx); CRF (chronic renal failure), stage 4 (severe) (HCC) Start: 04-23-2022 Telephone encounter Radha calzada PA-C Work Phone: Hematology/Oncology Comment on above: Patient Update Start: 04-22-2022 End: 04-22-2022 ambulatory ASHER ESTEPHANIE Facility:[facility] Start: 04-22-2022 End: 04-23-[address] RADHA SANDOVAL Facility: Start: 04-18-2022 End: 04-18-2022 ambulatory ASHER ABSAIGE Facility:[facility] Start: 04-18-2022 End: 04-18-2022 ambulatory Elysia Esposito MD Work Phone: Hematology/Oncology Comment on above: MDS (myelodysplastic syndrome) (HCC) (Primary Dx) Start: 04-18-2022 End: 04-18-2022 Patient encounter procedure Elysia Esposito MD Work Phone: [facility] Start: 04-15-2022 End: 04-15-2022 ambulatory ASHER HUMMEL Facility:[facility] Start: 04-15-2022 End: 04-15-2022 ambulatory Lab/[facility] Work Phone: Hematology/Oncology Comment on above: Malignant neoplasm o f prostate (HCC) (Primary Dx) Start: 04-15-2022 Telephone encounter Asher frances MD Work Phone: Hematology/Oncology Comment on above: Results (CBC/) Start: 04-08-2022 End: 04-09-2022 ambulatory ASHER HUMMEL Facility:[facility] Start: 04-08-2022 End: 04-08-2022 ambulatory Lab/[facility] Sam [place] Work Phone: Hematology/Oncology Comment on above: Anemia [...] End: 04-08-2022 Patient encounter procedure [facility] Provider [facility] Start: 04-03-2022 End: 04-04-[address] WILFRED MARTINEZ Facility: Start: 04-03-2022 Patient encounter procedure [facility] Provider [facility] Start: 04-03-2022 Telephone encounter Fide Fields Hematology/Oncology Comment on above: Results Start: 04-02-2022 End: 04-02-2022 ambulatory ASHER HUMMEL Facility:[facility] Start: 04-02-2022 Telephone encounter Asher frances MD Work Phone: [facility] Comment on above: Results Future Appointment Start: 03-25-2022 End: 03-26-2022 ambulatory Lab/Port Sam Monteagle Work Phone: Hematology/Oncology Comment on above: CRF [...] (R eferral) Start: 03-18-2022 End: 03-18-2022 ambulatory ASHER ABDIANNAAR Facility:[facility] Start: 03-18-2022 Telephone encounter Asher frances MD Work Phone: [facility] Comment on above: Care Coordination (L ab [...] (Primary Dx) Start: 03-13-2022 End: 03-13-2022 ambulatory ASHER ABAFUAAR Facility:[facility] Start: 03-13-2022 End: 03-13-2022 ambulatory Chair 17 Roman Work Phone: Hematology/Oncology Comment on above: Myelodysplastic synd sommer (HCC) (Primary Dx) Start: 03-12-2022 End: 03-13-[facility] Start: 03-12-2022 Patient encounter procedure [facility] Provider [facility] Start: 03-11-2022 End: 03-12-2022 ambulatory ASHER ABHYAFUAAR Facility:[facility] Start: 03-11-2022 End: 03-11-2022 ambulatory Chair [...] encounter Asher frances MD Work Phone: [facility] Comment on above: Future Appointment Start: 03-04-2022 End: 03-04-2022 ambulatory FLASH PEARL Facility:[facility] Start: 02-28-2022 End: 03-27-[address] SORIA [facility] Facility: Start: 02-28-2022 End: 02-28-2022 ambulatory ASHER HUMMEL Facility:[facility] Start: 02-28-2022 Telephone encounter Asher frances MD [facility] Comment on above: Transfusion Start: 02-25-2022 End: 02-25-2022 ambulatory ASHER HUMMEL Facility:[facility] Start: 02-25-2022 End: 02-25-2022 ambulatory Lab/[facility] Owens Work Phone: Hematology/Oncology Comment on above: CRF (chronic renal f ailure), stage 4 (severe) (HCC) (Primary Dx); Anemia of chronic renal failure, stage 4 (severe) (HCC); 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 loss; CKD (chronic kidney disease) stage 4, GFR 15-29 ml/min (HCC); Myelodysplastic syndrome (HCC) Start: 02-18-2022 End: 02-18-2022 ambulatory FLASH LENO PEARL Facility:[facility] Start: 02-15-2022 End: 02-15-2022 ambulatory Chair [...] encounter procedure Radha Sandoval PA-C Work Phone: [facility] Start: 02-04-2022 End: 02-05-2022 ambulatory NONE LISTED REQUEST Facility: Start: 02-04-2022 End: 02-04-2022 ambulatory ASHER HUMMEL Facility:[facility] Start: 02-04-2022 Telephone encounter Asher frances MD Work Phone: [facility] Comment on above: Future Appointment Care Coordination (C ritical Results) Start: 02-04-2022 End: 02-04-2022 ambulatory Lab/Port Sam Roman Work Phone: Hematology/Oncology Comment on above: Anemia of chronic re nal failure, stage 4 (severe) (HCC) (Primary Dx) Start: 01-30-2022 End: 01-30-2022 ambulatory ASHER HUMMEL Facility:[facility] Start: 01-30-2022 End: 01-30-2022 ambulatory Lab/Port [...] Start: 01-15-2022 Patient encounter procedure [facility] Start: 01-14-2022 End: 01-14-2022 ambulatory ASHER HUMMEL Facility:[facility] Start: 01-14-2022 Telephone encounter Asher frances MD Work Phone: [facility] Comment on above: Future Appointment Lab [...] ROMAN Start: 01-07-2022 End: 01-08-2022 ambulatory FLASH PEARL Facility:[facility] Start: 01-07-2022 End: 01-07-2022 Nursing evaluation of patient and report Gisela Bray Work Phone: Hematology/Oncology Comment on above: Anemia of chronic re nal failure, stage 4 (severe) (HCC) (Primary Dx); 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 loss; Myelodysplastic syndrome (HCC) Start: 01-01-2022 Telephone encounter Miriam Elizabeth RN Hematology/Oncology Comment on above: B12 injections Start: 12-21-2021 End: 12-21-2021 ambulatory Chair 17 Monteagle Work Phone: Hematology/Oncology Comment on above: Myelodysplastic [...] encounter procedure Asher Hummel MD Work Phone: [facility] Start: 11-29-2021 End: 11-29-2021 ambulatory Asher Hummel [...] Evaluation and management of inpatient KELSEY RAMIREZ Facility:[facility] Start: 11-16-2021 Patient encounter procedure [facility] Provider [facility] Start: 11-16-2021 Telephone encounter Angle parmar [...] Start: 10-26-2021 Patient encounter procedure [facility] Provider [facility] Start: 10-25-2021 End: 10-25-2021 ambulatory Lab/Port [...] Start: 09-05-2021 End: 09-05-2021 ambulatory Chair 18 oRman Work Phone: Hematology/Oncology Comment on above: Myelodysplastic synd sommer (HCC) (Primary Dx) Start: 05-29-2020 End: 05-29-2020 Patient encounter procedure External Provider [facility] Start: 05-29-2020 Results Only External Provider Eduardo [facility]al[facility] Start: 06-23-2018 End: 06-24-2018 Patient encounter procedure Evette Sheriff Facility[facility] Start: 06-11-2018 End: 06-12-2018 Patient encounter procedure Evette Sheriff [facility] Start: 05-28-2018 End: 05-29-2018 Patient encounter procedure MYLENE ANDREW Facility:[facility] Procedures Date Procedure Procedure Detail Performing Clinician Start: 11-14-2022 Transfusion of Nonautologous Red Blood Cells into Peripheral Vein, Percutaneous Approach DR SORIA [facility] Start: 05-27-2022 CBC + DIFF Asher frances [...] on above: Performed By: #### [id number] Start: 11-01-2021 Blood count complete auto&auto difrntl wbc Asher Hummel MD Work Phone: Start: 05-29-2020 EXTERNAL IMAGING Vial Gauger al Provider Start: 05-29-2020 End: 05-29-2020 EXTERNAL LAB External Provider Start: 05-29-2020 EXTERNAL PROCEDURE Exte rnal Provider Start: 10-23-2011 cysto/ud, bilateral RG Pyelogram Jacquelin Mick Cataract care Jacquelin Mick Placement of stent i n cardiac conduit Jacquelin Mick Comment on above: 2x Plan of Treatment Date Care Activity Detail Author Start: 11-20-2025 DIABETES SCREEN DIABETES SCREEN [facility] Start: 11-06-2025 DIABETES SCREEN DIABETES SCREEN [facility] Start: 10-30-2025 DIABETES SCREEN DIABETES SCREEN [facility] Start: 10-23-2025 DIABETES SCREEN DIABETES SCREEN [facility] Start: 10-16-2025 DIABETES SCREEN DIABETES SCREEN [facility] Start: 10-02-2025 DIABETES SCREEN DIABETES SCREEN [facility] Start: 09-25-2025 DIABETES SCREEN DIABETES SCREEN [facility] Start: 09-18-2025 DIABETES SCREEN DIABETES SCREEN [facility] Start: 09-11-2025 DIABETES SCREEN DIABETES SCREEN [facility] Start: 09-04-2025 DIABETES SCREEN DIABETES SCREEN [facility] Start: 08-28-2025 DIABETES SCREEN DIABETES SCREEN [facility] Start: 08-21-2025 DIABETES SCREEN DIABETES SCREEN [facility] Start: 08-14-2025 DIABETES SCREEN DIABETES SCREEN [facility] Start: 08-07-2025 DIABETES SCREEN DIABETES SCREEN [facility] Start: 07-30-2025 DIABETES SCREEN DIABETES SCREEN [facility] Start: 07-23-2025 DIABETES SCREEN DIABETES SCREEN [facility] Start: 07-15-2025 DIABETES SCREEN DIABETES SCREEN [facility] Start: 07-08-2025 DIABETES SCREEN DIABETES SCREEN [facility] Start: 07-01-2025 DIABETES SCREEN DIABETES SCREEN [facility] Start: 06-24-2025 DIABETES SCREEN DIABETES SCREEN [...] Clinic Start: 11-08-2024 DIABETES SCREEN DIABETES SCREEN [facility] Start: 11-01-2024 DIABETES SCREEN DIABETES SCREEN [facility] Start: 10-25-2024 DIABETES SCREEN DIABETES SCREEN [facility] Start: 10-11-2024 DIABETES SCREEN DIABETES SCREEN [facility] Start: 09-03-2024 DIABETES SCREEN DIABETES SCREEN [facility] Start: 10-17-2023 [facility] Start: 08-14-2022 End: 10-14-2022 Hematocrit [Volume Fraction] of Blood HEMATOCRIT (HCT) Lab Routine Myelodysplastic syndrome (HCC) Expected: 08/14/2022, Expires: 10/14/2022 [facility] Work Phone: Comment on above: Expected: 08/14/2022, Expires: 3 Start: 08-14-2022 End: 10-14-2022 Hemoglobin [Mass/volume] in Blood HEMOGLOBIN (HGB) Lab Routine Myelodysplastic syndrome (HCC) Expected: 08/14/2022, Expires: 10/14/2022 [facility] Work Phone: Comment on above: Expected: 08/14/2022, Expires: 3 Start: 08-13-2022 End: 10-13-2022 CBC W Auto Differential panel - Blood CBC + DIFF Lab Routine 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 loss Expected: 08/13/2022, Expires: 10/13/2022 [facility] Work Phone: Comment on above: Expected: 08/13/2022, Expires: 3 Start: 08-13-2022 End: 10-13-2022 Comprehensive metabolic 2000 panel - Serum or Plasma COMP METABOLIC PANEL Lab Routine 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 loss Expected: 08/13/2022, Expires: 10/13/2022 [facility] Work Phone: Comment on above: Expected: 08/13/2022, Expires: 3 Start: 08-13-2022 End: 10-13-2022 Lactate dehydrogenase [Enzymatic activity/volume] in Serum or Plasma LD LACTATE DEHYDRO Lab Routine 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 loss Expected: 08/13/2022, Expires: 10/13/2022 [facility] Work Phone: Comment on above: Expected: 08/13/2022, Expires: 3 Start: 07-30-2022 End: 09-29-2022 CBC W Auto Differential panel - Blood CBC + DIFF Lab Routine MDS (myelodysplastic syndrome) (HCC) Anemia of chronic renal failure, stage 4 (severe) (HCC) CRF (chronic renal failure), stage 4 (severe) (HCC) Expected: 07/30/2022, Expires: 09/29/2022 [facility] Work Phone: Comment on above: Expected: 07/30/2022, Expires: 3 Start: 07-30-2022 End: 09-29-2022 Comprehensive metabolic 2000 panel - Serum or Plasma COMP METABOLIC PANEL Lab Routine MDS (myelodysplastic syndrome) (HCC) Anemia of chronic renal failure, stage 4 (severe) (HCC) CRF (chronic renal failure), stage 4 (severe) (HCC) Expected: 07/30/2022, Expires: 09/29/2022 [facility] Work Phone: Comment on above: Expected: 07/30/2022, Expires: 3 Start: 07-28-2022 ADVANCE DIRECTIVE DISCUSSION ADVANCE DIRECTIVE DISCUSSION [facility] Start: 07-28-2022 DEPRESSION ASSESSMENT DEPRESSION ASSESSMENT [facility] Start: 07-08-2022 End: 09-07-2022 CBC W Auto Differential panel - Blood CBC + DIFF Lab Routine MDS (myelodysplastic syndrome) (HCC) CRF (chronic renal failure), stage 4 (severe) (HCC) Expected: 07/08/2022, Expires: 09/07/2022 [facility] Work Phone: Comment on above: Expected: 07/08/2022, Expires: 3 Start: 07-08-2022 End: 09-07-2022 Comprehensive metabolic 2000 panel - Serum or Plasma COMP METABOLIC PANEL Lab Routine MDS (myelodysplastic syndrome) (HCC) CRF (chronic renal failure), stage 4 (severe) (HCC) Expected: 07/08/2022, Expires: 09/07/2022 [facility] Work Phone: Comment on above: Expected: 07/08/2022, Expires: 3 Start: 06-24-2022 End: 08-24-2022 CBC W Auto Differential panel - Blood CBC + DIFF Lab Routine MDS (myelodysplastic syndrome) (HCC) CRF (chronic renal failure), stage 4 (severe) (HCC) Anemia of chronic renal failure, stage 4 (severe) (HCC) Expected: 06/24/2022, Expires: 08/24/2022 [facility] Work Phone: Comment on above: Expected: 06/24/2022, Expires: 3 Start: 06-24-2022 End: 08-24-2022 Comprehensive metabolic 2000 panel - Serum or Plasma COMP METABOLIC PANEL Lab Routine MDS (myelodysplastic syndrome) (HCC) CRF (chronic renal failure), stage 4 (severe) (HCC) Anemia of chronic renal failure, stage 4 (severe) (HCC) Expected: 06/24/2022, Expires: 08/24/2022 [facility] Work Phone: Comment on above: Expected: 06/24/2022, Expires: 3 Start: 06-10-2022 End: 08-10-2022 CBC W Auto Differential panel - Blood CBC + DIFF Lab Routine MDS (myelodysplastic syndrome) (HCC) Expected: 06/10/2022, Expires: 08/10/2022 [facility] Work Phone: Comment on above: Expected: 06/10/2022, Expires: 3 Start: 06-10-2022 End: 08-10-2022 Comprehensive metabolic 2000 panel - Serum or Plasma COMP METABOLIC PANEL Lab Routine MDS (myelodysplastic syndrome) (HCC) Expected: 06/10/2022, Expires: 08/10/2022 [facility] Work Phone: Comment on above: Expected: 06/10/2022, Expires: 3 Start: 04-25-2022 End: 06-25-2022 MISC SEND OUT TST 1 MISC SEND OUT TST 1 Lab Routine Myelodysplastic syndrome (HCC) Expected: 04/25/2022, Expires: 06/25/2022 [facility] Work Phone: Comment on above: Expected: 04/25/2022, Expires: 2 Start: 03-28-2022 Influenza vaccination INFLUENZA (#1) [facility] Start: 02-11-2022 End: 04-13-2022 CBC W Auto Differential panel - Blood CBC + DIFF Lab Routine Anemia of chronic renal failure, stage 4 (severe) (HCC) Myelodysplastic syndrome (HCC) Expected: 02/11/2022, Expires: 04/13/2022 [facility] Work Phone: Comment on above: Expected: 02/11/2022, Expires: 2 Start: 02-11-2022 End: 04-13-2022 Comprehensive metabolic 2000 panel - Serum or Plasma COMP METABOLIC PANEL Lab Routine Anemia of chronic renal failure, stage 4 (severe) (HCC) Myelodysplastic syndrome (HCC) Expected: 02/11/2022, Expires: 04/13/2022 [facility] Work Phone: Comment on above: Expected: 02/11/2022, Expires: 2 Start: 12-02-2021 End: 11-29-2022 CBC W Auto Differential panel - Blood CBC + DIFF Lab Routine Myelodysplastic syndrome (HCC) CRF (chronic renal failure), stage 4 (severe) (HCC) Anemia of chronic renal failure, stage 4 (severe) (HCC) 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 transfusions Expected: 12/02/2021 (Approximate), Expires: 11/29/2022 [facility] Work Phone: Comment on above: Expected: 12/02/2021 (Approximate), Expi res: 11/29/2022 Start: 12-02-2021 End: 11-29-2022 Comprehensive metabolic 2000 panel - Serum or Plasma COMP METABOLIC PANEL Lab Routine Myelodysplastic syndrome (HCC) CRF (chronic renal failure), stage 4 (severe) (HCC) Anemia of chronic renal failure, stage 4 (severe) (HCC) 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 transfusions Expected: 12/02/2021 (Approximate), Expires: 11/29/2022 [facility] Work Phone: Comment on above: Expected: 12/02/2021 (Approximate), Expi res: 11/29/2022 Start: 07-28-2021 ADVANCE DIRECTIVE DISCUSSION ADVANCE DIRECTIVE DISCUSSION [facility] Start: 07-28-2021 DEPRESSION ASSESSMENT DEPRESSION ASSESSMENT [facility] Start: 03-28-2020 Influenza vaccination INFLUENZA (#1) [facility] Start: 05-08-2015 PNEUMOCOCCAL: 65+ (3 - PCV) PNEUMOCOCCAL: 65+ (3 - PCV) [facility] Start: 06-27-2008 DIABETES SCREEN DIABETES SCREEN [facility] Start: 07-13-2007 PNEUMOVAX AGE 65 AND OVER WITH 5YR LOOKBACK (#1) PNEUMOVAX AGE 65 AND OVER WITH 5YR LOOKBACK (#1) [facility] Start: 06-27-2006 Hepatitis B surface antibody level LDL CHOLESTEROL [facility] Start: 12-06-2003 ADVANCE DIRECTIVE DISCUSSION ADVANCE DIRECTIVE DISCUSSION [facility] Start: 1988 SHINGRIX VACCINE (1 of 2) [facility]INGRIX VACCINE (1 of 2) [facility] Start: 1957 SHINGRIX VACCINE (1 of 2) SHINGRIX VACCINE (1 of 2) [facility] Start: 1957 Urine microalbumin profile DTAP,TDAP,TD (1 - Tdap) [facility] Start: 1948 3 comp foot exam completed DIABETIC FOOT EXAM [facility] Start: 1948 Hepatitis B screening URINE ALBUMIN:CREATININE RATIO [facility] Start: 1948 Hepatitis C antibody, confirmatory test DILATED RETINAL EXAM [facility] Start: 12-06-1943 Hemoglobin A1c/Hemoglobin.total in Blood HBA1C [facility] BONE MARROW ANALYSIS [facility] Work Phone: Comment on above: Ordered: 04/25/2022 BONE MARROW CHROMOSO ME ANAL [facility] Work Phone: Comment on above: Ordered: 04/25/2022 CBC W Auto Different ial panel - Blood CBC + DIFF Lab Routine Myelodysplastic syndrome (HCC) CRF (chronic renal failure), stage 4 (severe) (HCC) Anemia of chronic renal failure, stage 4 (severe) (HCC) 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 transfusions 01/21/2022 1:[address] [facility] Work Phone: CBC W Auto Different ial panel - Blood CBC + DIFF Lab Routine Myelodysplastic syndrome (HCC) CRF (chronic renal failure), stage 4 (severe) (HCC) 02/15/2022 1:[address] [facility] Work Phone: CBC W Auto Different ial panel - Blood CBC + DIFF Lab Routine Myelodysplastic syndrome (HCC) CRF (chronic renal failure), stage 4 (severe) (HCC) Ordered: 04/25/2022 [facility] Work Phone: Comment on above: Ordered: 04/25/2022 CBC W Auto Different ial panel - Blood CBC + DIFF Lab Routine Myelodysplastic syndrome (HCC) CRF (chronic renal failure), stage 4 (severe) (HCC) 05/27/2022 1:[address] [facility] Work Phone: End: 08-13-2023 CBC W Auto Differential panel - Blood CBC + DIFF Lab Routine 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 loss MDS (myelodysplastic syndrome) (HCC) Anemia of chronic renal failure, stage 4 (severe) (HCC) 2x per week for 100 Occurrences starting 08/13/2022 until 08/13/2023 [facility] Work Phone: Comment on above: 2x per week for 100 Occurrences starting 08/13/2022 until 08/13/2023 End: 08-13-2023 Comprehensive metabolic 2000 panel - Serum or Plasma COMP METABOLIC PANEL Lab Routine 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 loss MDS (myelodysplastic syndrome) (HCC) Anemia of chronic renal failure, stage 4 (severe) (HCC) 2x per week for 100 Occurrences starting 08/13/2022 until 08/13/2023 [facility] Work Phone: Comment on above: 2x per week for 100 Occurrences starting 08/13/2022 until 08/13/2023 DNA EXTRACTION BONE MARROW (BUFFY COAT) [facility] Work Phone: Comment on above: Ordered: 04/25/2022 FLOW CYTOMETRY BONE MARROW HOLD (BMHOLD) FLOW CYTOMETRY BONE MARROW HOLD (BMHOLD) Lab Routine Myelodysplastic syndrome (HCC) CRF (chronic renal failure), stage 4 (severe) (HCC) Ordered: 04/25/2022 [facility] Work Phone: Comment on above: Ordered: 04/25/2022 FLT3 ITD HN BONE MARROW [facility] Work Phone: Comment on above: Ordered: 04/25/2022 MYELOID NGS PANEL NATALIE NE MARROW [facility] Work Phone: Comment on above: Ordered: 04/25/2022 MYELOID NGS PANEL NATALIE NE MARROW [facility] Work Phone: Comment on above: Ordered: 04/25/2022 MYELOPROLIFERATIVE NEOPLASM PANEL MARROW MYELOPROLIFERATIVE NEOPLASM PANEL MARROW Lab Routine Myelodysplastic syndrome (HCC) CRF (chronic renal failure), stage 4 (severe) (HCC) Ordered: 04/25/2022 [facility] Work Phone: Comment on above: Ordered: 04/25/2022 Patient Education Nosebleeds [facility] Work Phone: Patient referral [facility] Work Phone: [facility] Immunizations Immunization Date Immunization Notes Care Provider [facility] 05-20-2022 influenza virus vacc ine, unspecified formulation Jacquelin Hernandes [facility] 05-20-2022 influenza, high-dose , quadrivalent vaccine (FLUZONE HIGH DOSE QUADRIVALENT) Asher Hummel MD Work Phone: [place] [id number] SARS-CoV-2 (COVID-19 ) mRNA-1273 vaccine Jacquelin Hernandes [facility] 05-02-2021 influenza virus vacc ine, unspecified formulation Jacquelin Hernandes [facility] 05-02-2021 influenza, high-dose , quadrivalent vaccine (FLUZONE HIGH DOSE QUADRIVALENT) Chair Monteagle Work Phone: [facility] 09-25-2020 COVID-19 vaccine, fu ll dose (MODERNA) Chair Roman Work Phone: [facility] 09-16-2020 COVID-19 vaccine, ag e 12+ yr (PFIZER-BIONTECH - PURPLE TOP) Chair Monteagle Work Phone: [facility] 09-14-2020 COVID-19 vaccine, fu ll dose (MODERNA) Chair Monteagle Work Phone: [facility] 08-28-2020 COVID-19 vaccine, fu ll dose (MODERNA) Chair Monteagle Work Phone: [facility] 08-25-2020 COVID-19 vaccine, ag e 12+ yr (PFIZER-BIONTECH - PURPLE TOP) Chair Monteagle Work Phone: [facility] 08-17-2020 COVID-19 vaccine, fu ll dose (MODERNA) Chair Monteagle Work Phone: [facility] 06-23-2019 influenza virus vacc ine, unspecified formulation Jacquelin Mick [facility] 06-23-2019 Seasonal, quadrivale nt, recombinant, injectable influenza vaccine, preservative free Chair Monteagle Work Phone: [facility] 05-10-2019 influenza virus vacc ine, unspecified formulation Jacquelin Hernandes [facility] 05-10-2019 influenza, seasonal, injectable Chair Roman Work Phone: [facility] 05-28-2018 influenza virus vacc ine, unspecified formulation Jacquelin Hernandes [facility] 05-28-2018 influenza, high dose seasonal, preservative-free Chair Monteagle Work Phone: [facility] 06-18-2015 influenza virus vacc ine, unspecified formulation Jacquelin Hernandes [facility] 06-18-2015 influenza, seasonal, injectable, preservative free Chair Monteagle Work Phone: [facility] 05-08-2014 influenza virus vacc ine, unspecified formulation Jacquelin Hernandes [facility] 05-08-2014 influenza, seasonal, injectable, preservative free Chair Roman Work Phone: [facility] 05-08-2014 pneumococcal polysaccharide vaccine, 23 valent Chair Monteagle Work Phone: [facility] 05-23-2013 influenza virus vacc ine, unspecified formulation Jacquelin Hernandes [facility] 05-23-2013 influenza, seasonal, injectable Chair Roman Work Phone: [facility] 06-27-2005 influenza virus vacc ine, unspecified formulation External Provider [facility] Work Phone: 07-13-2002 influenza virus vacc ine, unspecified formulation External Provider [facility] 07-13-2002 pneumococcal polysaccharide vaccine, 23 valent External Provider [facility] Payers Date Payer Category Payer Self-pay 2023 Private Health Insurance [id number] 2023 Private Health Insurance [id number] 2022 Medicare [id number] 2021 Medicare MMO MEDICARE MMO MEDADVANTAGE PPO [id number] 2021-Present [phone] [address] [place] [id number] O [id number] 2021 Medicare MMO MEDICARE MMO MEDADVANTAGE PPO [id number] 2021-Present [phone] [address] [place] [address] PPO [id number] 2019 Medicare AETNA MEDICARE A ETNA MEDICARE PPO [id number] 2019-Present PPO [id number] 2017 Private Health Insurance [id number] Unknown [id number] 1938 Unknown [id number] 2.16.840.1.476176.3.579 .2.196 1938 Unknown [id number] 2.16.840.1.801900.3.579 .2.196 1938 Unknown [id number] 2.16.840.1.362296.3.579 .2.196 1938 Unknown [id number] 2.16.840.1.252084.3.579 .2.196 1938 Unknown [id number] 2.16.840.1.543139.3.579 .2.647 1938 Unknown [id number] 2.16.840.1.218298.3.579 .2.593 1938 Unknown [id number] 2.16.840.1.814309.3.579 .2.593 1938 Unknown [id number] 2.16.840.1.584632.3.579 .2.593 1938 Unknown [id number] 2.16.840.1.336933.3.579 .2.593 1938 Unknown [id number] 2.16.840.1.160206.3.579 .2.593 1938 Unknown [id number] 2.16.840.1.003777.3.579 .2.593 1938 Unknown [id number] 2.16.840.1.449237.3.579 .2.593 1938 Unknown [id number] 2.16.840.1.071071.3.579 .2.593 1938 Unknown [id number] 2.16.840.1.032538.3.579 .2.593 1938 Unknown [id number] 2.16.840.1.726895.3.579 .2.593 1938 Unknown [id number] 2.16.840.1.791267.3.579 .2.593 1938 Unknown [id number] 2.16.840.1.936351.3.579 .2.593 1938 Unknown [id number] 2.16.840.1.660491.3.579 .2.593 1938 Unknown [id number] 2.16.840.1.101120.3.579 .2.593 1938 Unknown [id number] 2.16.840.1.856106.3.579 .2.593 1938 Unknown [id number] 2.16.840.1.102892.3.579 .2.593 1938 Unknown [id number] 2.16.840.1.694437.3.579 .2.593 1938 Unknown [id number] 2.16.840.1.244810.3.579 .2.593 1938 Unknown [id number] 2.16.840.1.822068.3.579 .2.593 1938 Unknown [id number] 2.16.840.1.102661.3.579 .2.727 1938 Unknown [id number] 2.16.840.1.969945.3.579 .2. 1938 Unknown [id number] 2.16.840.1.292400.3.579 .2 1938 Unknown [id number] 2.16.840.1.543935.3.579 .2 1938 Unknown [id number] 2.16.840.1.139933.3.579 .2 1938 Unknown [id number] 2.16.840.1.433092.3.579 .2 1938 Unknown [id number] 2.16.840.1.738302.3.579 .2 1938 Unknown [id number] 2.16.840.1.774861.3.579 .1938 Unknown [id number] 2.16.840.1.192167.3.579 .2 1938 Unknown [id number] 2.16.840.1.366059.3.579 .2 1938 Unknown [id number] 2.16.840.1.719145.3.579 .2 1938 Unknown [id number] 2.16.840.1.675736.3.579 .2 1938 Unknown [id number] 2.16.840.1.587032.3.579 .2 1938 Unknown [id number] 2.16.840.1.665012.3.579 .2 1938 Unknown [id number] 2.16.840.1.579865.3.579 .2 1938 Unknown [id number] 2.16.840.1.151285.3.579 .2 1938 Unknown [id number] 2.16.840.1.564472.3.579 .2.727 1938 Unknown [id number] 2.16.840.1.659394.3.579 .2.727 1938 Unknown [id number] 2.16.840.1.013458.3.579 .2.727 1938 Unknown [id number] 2.16.840.1.496665.3.579 .2.727 1938 Unknown [id number] 2.16.840.1.685255.3.579 .2.727 1938 Unknown [id number] 2.16.840.1.697882.3.579 .2. 1938 Unknown [id number] 2.16.840.1.785999.3.579 .2. 1938 Unknown [id number] 2.16.840.1.097778.3.579 .2. 1938 Unknown [id number] 2.16.840.1.797938.3.579 .2.1259 1938 Unknown [id number] 2.16.840.1.029066.3.579 .2.1259 Unknown [id number] 2.16.840.1.441878.3.579 .2.531 Social History Date Type Detail Facility Tobacco smoking stat us [facility] Unknown if ever smoked [facility] Start: 1940 Sex Assigned At Not on file [facility] Exposure to SARS-CoV -2 (event) Unable to assess [facility] Start: 05-29-2020 End: 10-17-2023 Tobacco smoking status NHIS Ex-smoker [facility] Comment on above: quit 1993 End: 07-28-1994 History of tobacco use Current smoker [facility] End: 07-28-1994 History of tobacco use Pipe Smoker [facility] Start: 05-29-2020 End: 03-11-2022 Tobacco use and exposure Smokeless tobacco non-user [facility] Start: 10-15-2021 End: 11-20-2022 Alcohol intake Ex-drinker (finding) [facility] Start: 10-05-2021 End: 07-01-2022 Exposure to SARS-CoV-2 (event) Not sure [facility] History of tobacco use Passive smoker [facility] Sex Assigned At Male [facility] Start: 1940 Sex Assigned At Male [facility] Medical Equipment Procedure Code Equipment Code Equipment Origin al Text Equipment Identifier Dates Start: 04-07-2020 See Instructions , One touch ultra blue test strips Use as directed to test sugars once a day Start: 03-10-2023 Clinical Notes 10-15-2021 to 10-14-2023 Telephone Encounter - Samira Sheldon MA - 12/31/2022 10:02 AM EDTTelephone Encounter - Angle Kamara RN - 11/20/2022 4:43 PM EDTTelephone Encounter - Ada Perez - 11/20/2022 4:28 PM EDT Note Date & Type Note Facility 10-14-2023 Hospital Discharge instructions Additional Instructions Is very important that you follow-up with cardiology. We were unable to receive a EKG at time you requested to leave to compare if it was any changes. Hemoglobin today is 7.3 is also important that you follow-up with your PCP. I understand you have sent infusion for Friday but you should follow-up as soon as possible Please return here if you develop any chest pain, shortness of breath, dizziness, increased bleeding or any other concerns Also follow-up with nephrology as planned Follow-up with ENT for nosebleed as instructed per Michael. Avoid blowing your nose You understand signing out AGAINST MEDICAL ADVICE if there is anything cardiac going indicated cardiac arrest, respiratory arrest, disability, [facility] Work Phone: 10-10-2023 Note stable [facility] 10-10-2023 Note Will continue to mon itor, no acute symptoms at this time Dr Jason mccall/w about mitraclip procedure and he also declined this procedure [facility] 10-10-2023 Note In light of recent b leeding issues/epistaxis anticoagulation has been stopped, Dr Jason mccall/w them regarding watchman implantation and he refused any invasive procedure at this time. [facility] 10-10-2023 Note Remains on oxygen, d enied any worsening SOB [facility] 10-10-2023 Note [facility] II-III currentl y appears euvolemic without exacerbation Continue GDMT- ASA, lipitor, farxiga, lisinopril, toprol, aldactone and Diuretic therapy- bumex 2 mg bid Monitor daily weights, I&O, fluid restriction 1.5-2L/day, renal function and electrolytes- please maintain K+>4 and Mg > 2 [facility] 10-10-2023 Note HTN well controlled 101/55 Continue toprol, lisinopril, aldactone [facility] 10-10-2023 Note [facility] CARDIOLOGY PROGR ESS [...] the echocardiogram performed in June 2020 at [facility]. Previously he sustained GI bleeding and underwent investigation of the [facility] clinic. He recovered from that. He [...] procedures. On 11/18/2021 he was admitted to [facility] with decompensated heart failure. 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 He underwent diuresis. Right heart catheterization on 11/21/2021 showed elevated filling pressures. Transesophageal echocardiogram showed moderately reduced systolic function with an ejection fraction of 30 to 35% and severe mitral regurgitation. Since last visit he has been doing about the same. He continues to be on oxygen therapy continuously. 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 this was stopped. He is currently under treatment with a new exterminator termite and his anemia is being managed by [...] June 2023 he was admitted to the [facility] with low hemoglobin and received 3 units [...] 3 (CMS/HCC) Ch (more content not included)... [facility] 10-10-2023 Note Patient here for 2 w osage follow up per Dr. Gomez. He is [...] All other systems reviewed and are negative. [facility] 09-29-2023 Note [facility] Subjective Sandip Broussard is a 82 [...] the echocardiogram performed in June 2020 at [facility]. Previously he sustained GI bleeding and underwent investigation of the [facility] clinic. He recovered from that. He [...] procedures. On 11/18/2021 he was admitted to [facility] with decompensated heart failure. 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 He underwent diuresis. Right heart catheterization on 11/21/2021 showed elevated filling pressures. Transesophageal echocardiogram showed moderately reduced systolic function with an ejection fraction of 30 to 35% and severe mitral regurgitation. Since last visit he has been doing about the same. He continues to be on oxygen therapy continuously. 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 this was stopped. He is currently under treatment with a new exterminator termite and his anemia is being managed by [...] he was admi (more content not included)... [facility] 09-22-2023 Note Chief Complaint Re-Referral *possible chronic cath HPI Staff Referral for BPH by Dr. Hernandes. Pt last saw DLS in our office [...] the Terazosin. Terazosin last filled by Dr Hernandes 08/29/22. Per , Dr Hernandes prefers script to be filled by Urologist [...] Prior Dr. Mohan pt re-referred by Dr. Hernandes. 1. 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 Medications aspi (more content not included)... [facility] Comment on above: Result Comment: Elec tronically Signed By: Elena DO MD\.br\Date and Time Signed: 09/22/23 14:33 EST\.br\Electronically Co-Signed By: Radha Aldana\.etienne\Date and Time Co-Signed: 09/22/23 14:32 EST 08-29-2023 Note [facility] Subjective Sandip Broussard is a 82 [...] the echocardiogram performed in June 2020 at [facility]. Previously he sustained GI bleeding and underwent investigation of the [facility] clinic. He recovered from that. He [...] procedures. On 11/18/2021 he was admitted to [facility] with decompensated heart failure. 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 He underwent diuresis. Right heart catheterization on 11/21/2021 showed elevated filling pressures. Transesophageal echocardiogram showed moderately reduced systolic function with an ejection fraction of 30 to 35% and severe mitral regurgitation. Since last visit he has been doing about the same. He continues to be on oxygen therapy continuously. 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 this was stopped. He is currently under treatment with a new exterminator termite and his anemia is being managed by [...] June 2023 he was admitted to the [facility] (more content not included)... [facility] 07-17-2023 Note Patient here for [facility]. He was recently admitted with renal failure [...] All other systems reviewed and are negative. [facility] 07-17-2023 Note [facility] Subjective Sandip Broussard is a 82 [...] the echocardiogram performed in June 2020 at [facility]. Previously he sustained GI bleeding and underwent investigation of the [facility] clinic. He recovered from that. He [...] procedures. On 11/18/2021 he was admitted to [facility] with decompensated heart failure. 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 He underwent diuresis. Right heart catheterization on 11/21/2021 showed elevated filling pressures. Transesophageal echocardiogram showed moderately reduced systolic function with an ejection fraction of 30 to 35% and severe mitral regurgitation. Since last visit he has been doing about the same. He continues to be on oxygen therapy continuously. 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 this was stopped. He is currently under treatment with a new exterminator termite and his anemia is being managed by [...] states he feels (more content not included)... [facility] 07-16-2023 Note [id number] [facility] 03-14-2023 Note [facility] Subjective Sandip Broussard is a 82 [...] the echocardiogram performed in June 2020 at [facility]. Previously he sustained GI bleeding and underwent investigation of the [facility] clinic. He recovered from that. He [...] procedures. On 11/18/2021 he was admitted to [facility] with decompensated heart failure. 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 He underwent diuresis. Right heart catheterization on 11/21/2021 showed elevated filling pressures. Transesophageal echocardiogram showed moderately reduced systolic function with an ejection fraction of 30 to 35% and severe mitral regurgitation. Since last visit he has been doing about the same. He continues to be on oxygen therapy continuously. 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 this was stopped. He is currently under treatment with a new exterminator termite and his anemia is being managed by [...] BP Cuff Si (more content not included)... [facility] 02-26-2023 Hospital Discharge instructions Follow Up Care 02/26/2023 08:42:11 With:Jose Lu Address: [facility] [address] [place] [address] [place] [address]- [phone] Business (1) When: Unknown Comments:Labs todayFecal occult stool testingUrinalysis with micro todayWeekly CBC with differential and type and cross and transfuse if hemoglobin less than 8.0 at [facility].CMP and LDH every [address] Mercer for palliative management.Return in 6 weeks. [facility] 12-31-2022 Miscellaneous Notes Patient notified to make appt for refill documented in this encounter [facility] 11-20-2022 Note [facility] 11-20-2022 Miscellaneous Notes Concha @ [facility] notified and verbalizes understanding. Angle Kamara RN Images from the original note were not included. Per Dr. Hummel's check out note this afternoon: All appointments were cancelled. Images from the original note were not included. Bobbi Mehta RPh You; Wilfred Martinez APRN.DERRICK HELPER; Asher Hummel MD; Roman Clerical Pool; [facility] Pool 14 minutes ago (3:54 PM) LAN Asher, Do they realize the cost of Luspatercept? luspatercept-aamt 25 mg Solr [[id number]] Amount to Base Charge on: 125 mg Package: 1 Each Vial (92030-784-91) Charge Dropped: [phone] Bobbi: Concha Avendaño @ [facility] notified of cost and frequency of [...] hospice told them otherwise. Call placed to [facility]. Spoke w/ Concha, who confirms spouse's statement. Per Concha, they will cover all lab, transfusions, and treatment since Dr Hummel feels the pt has a less than 6 months prognosis w/ or w/o treatment. Pt's spouse notified of the above and verbalizes understanding. Will be in this afternoon as scheduled. Pharmacy/Clerical: FYI...... Angle Kamara RN documented in this encounter [facility] 11-20-2022 Instructions Asher Hummel MD - 11/20/2022 4:13 PM EDT Continue with Hospice Cancel treatment appointments Cancel appointments with [facility] RTC PRN Ok to get PRN transfusions based on symptoms. documented in this encounter [facility] 11-20-2022 History of Present illness Narrative Images [...] which included preparing to see the patient, vhqi-zf-jqyt patient care, completing clinical documentation, obtaining and/or reviewing separately obtained history, performing a medically appropriate examination, counseling and educating the patient/family/caregiver, communicating with other HCPs (not separately reported), independently interpreting results (not separately reported), communicating results to the patient/family/caregiver, and care coordination (not separately reported) Asher Hummel MD, CPE Hematology and Oncology Services Provided at: [place], [place] . documented in this encounter [facility] 11-20-2022 Nurse Note Patients would like to know if it is normal to get a blood transfusion in 4 hours? It used to be 8 hours now they are pushing it thru faster. Also could that result in fluid overload? Opal Campbell MA documented in this encounter [facility] 11-19-2022 Miscellaneous Notes Concha @ [facility] notified. Copy of this encounter along w/ office notes faxed to [phone]. Angle Kamara RN Yes - I agree Brynn: Pt was discharged from [facility] to home w/ [facility]. Hospice calls today regarding pt's transfusion needs. Notes that they can continue transfusing for symptom management if you believe that w/ or w/o treatment the pt would have a less than 6 month prognosis. Do you agree? Angle Kamara RN documented in this encounter [facility] 11-06-2022 Miscellaneous Notes Faxed orders to [facility] scheduling and also left a message. Aad Perez Preliminary CBC shows hgb of 6.5. Transfusion orders written per Dr Hummel. Pt's spouse notified and verbalizes understanding. Orders given to MARII Caballero, for scheduling. Angle Kamara RN documented in this encounter [facility] 11-06-2022 Miscellaneous Notes Patient came in for lab draw this afternoon per spouse they did not want to stay wait for results, requested to have nurse call them with results. Please call patient and spouse at [phone]. Thank you. Emily Horan Pss documented in this encounter [facility] 10-30-2022 Note [facility] 10-24-2022 Miscellaneous Notes Patient has been scheduled for transfusion tomorrow @ [facility] @ 8 am. He will need to go today for TSC. Call placed to patient/spouse no answer. Left detailed message with this information on voicemail. Ada Perez Pt's spouse calls requesting yesterday's CBC results. Hgb 7.4. Informed spouse that we would be ordering a blood transfusion to be done @ [facility]. Spouse verbalizes understanding. Transfusion orders signed per Dr Hummel and given to MARII Piedra, for scheduling. Angle Kamara RN documented in this encounter [facility] 10-23-2022 Note HNO ID: [id number] Author: Lexi Bowser RN Service: ? Author Type: Registered Nurse Type: Progress Notes Filed: 10/23/2022 3:32 PM Note Text: Went to lobby to inform pt of lab results and pt had already left. [facility] 10-23-2022 History of Present illness Narrative Went to lobby to inform pt of lab results and pt had already left. documented in this encounter [facility] 10-17-2022 Miscellaneous Notes [facility] Lab calls regarding transfusion order written on 10/16/22. Notes the H&H box must be marked. Per lab, the order they have has the box crossed out and NO marked next to it. Requesting we send a new order w/ the H&H box clearly marked. New order received from Dr Hummel and faxed to [facility] @ [phone]. Angle Kamara RN documented in this encounter [facility] 10-16-2022 Note [facility] 10-16-2022 History of Present illness Narrative Pt provided with CBC result from today per request. HgB 6.4. Transfusion orders rec'd from Dr Arias. Pt to PSS for scheduling of PRBC'S. Fide Puente RN documented in this encounter [facility] 10-15-2022 Nurse Note Clinical questionnaires incomplete due to Patient declined to complete or answer questions with nurse Additional intake questions: Has the patient had fever, nausea, vomiting, diarrhea, constipation, fatigue for > 1 week? Yes, fatigue and Provider Notified Does the patient have a decreased appetite? Yes Does patient want to see a Dance Historian? No (yes to any of above refer patient to schedulers for dietitian appointment) ) Does patient have any new or increased numbness or tingling of extremities? No Is patient interested in fertility information? No Does patient need any prescription refills? No Does patient have an advanced directive in place? No, Patient referred to [facility] documented in this encounter [facility] 10-15-2022 Note [facility] 10-15-2022 History of Present illness Narrative [place] [address] [place] CLINIC NOTE NAME: SANDIP BROUSSARD [facility] #: [id number] DATE: 10/15/2022 AGE: 81 PHYSICIAN: Elysia Esposito [...] clinic in 2 months. Elysia Esposito M.D. AA:[id number] / documented in this encounter [facility] 10-09-2022 Note [facility] 10-02-2022 Note [facility] 10-02-2022 Miscellaneous Notes 1 unit packed RBC's at [facility] 10-03-22 11am. Orders were faxed and they called the patient's documented in this encounter [facility] 09-25-2022 Miscellaneous Notes Pt's spouse calls requesting the results of his CBC from today. Hgb 6.9. Transfusion ordered per Dr Hummel. Spouse notified and will go to [facility] for type and screen. Transfusion orders given to Tello for scheduling. Angle Kamara RN documented in this encounter [facility] 09-18-2022 Note [facility] 09-18-2022 Instructions Asher Hummel MD - 09/18/2022 1:56 PM EST Continue luspatercept SQ today and q 3 weeks B12 shot today every 3 weeks Check CBC every Friday - stay for results Keep Hgb > 8 Check CMP every 3 weeks Recommended ensure/boost for increased calories. RTC in 3 weeks - khai Obando documented in this encounter [facility] 09-18-2022 History of Present illness Narrative Images from the original note were not included. NAME: Sandip Broussard CLINIC NO.: [id number] DATE OF SERVICE: September 18, 2022 ([facility]) Some elements in this clinic note that [...] Epo usage. 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 [...] TET2 p.?, [id number], c.4182+1G>A VAF: 44.5% TET2 p.Z9361K, [id number], c.5618T>C VAF: 40% ZRSR2 p.R30Vfs*8, NM_005089.3, [...] meeting as lissette is significantly younger than Llyod. Updated Visit, February 11, 2022: Patient received [...] surgery w/ Dr. Hyde Last fall in [place]. Has tranexamic acid at home. Requesting ENT referral at [facility]. He is dehydrated and not keeping up with fluids. 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 Since stopping the aspirin he has not [...] which included preparing to see the patient, sgiy-eo-dxyt patient care, completing clinical documentation, performing a medically appropriate examination, counseling and educating the patient/family/caregiver, ordering medications, tests, or procedures, communicating with other HCPs (not separately reported), independently interpreting results (not separately reported), and communicating results to the patient/family/caregiver. Asher Hummel MD, CPE Hematology and Oncology Services Provided at: [place], [place] CC: Dr. Flash Gomez (Cardiology [facility]) Dr. Oumou Esposito documented in this encounter [facility] 09-12-2022 Miscellaneous Notes Patient is called [...] Angle Kamara RN documented in this encounter [facility] 09-04-2022 Miscellaneous Notes 2 units Packed RBC's at [facility] on Friday09-06-22 lab on . Orders and cbc were faxed to [facility].Patient has been notified documented in this encounter [facility] 08-28-2022 Note [facility] 08-28-2022 Instructions Asher Hummel MD - 08/28/2022 3:36 PM EST Start luspatercept SQ q 3 weeks Check CBC every Friday Keep gb > 8 Check CMP every 3 weeks Recommended ensure/boost for increased calories. RTC in 3 weeks documented in this encounter [facility] 08-28-2022 History of Present illness Narrative Images from the original note were not included. NAME: Sandip Broussard CLINIC NO.: [id number] DATE OF SERVICE: August 28, 2022 (Estephanie) [...] Epo usage. 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 [...] TET2 p.?, [id number], c.4182+1G>A VAF: 44.5% TET2 p.W7000W, [id number], c.5618T>C VAF: 40% ZRSR2 p.R30Vfs*8, NM_005089.3, [...] surgery w/ Dr. Hyde Last fall in [place]. Has tranexamic acid at home. Requesting ENT referral at [facility]. He is dehydrated and not keeping up with fluids. 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 Since stopping the aspirin he has not [...] which included preparing to see the patient, sozh-jp-ymtt patient care, completing clinical documentation, performing a medically appropriate examination, counseling and educating the patient/family/caregiver, ordering medications, tests, or procedures, communicating with other HCPs (not separately reported), independently interpreting results (not separately reported), and communicating results to the patient/family/caregiver. Asher Hummel MD, CPE Hematology and Oncology Services Provided at: [place], [place] CC: Dr. Flash Gomez (Cardiology [facility]) Dr. Oumou Esposito documented in this encounter [facility] 08-27-2022 Note [facility] 08-27-2022 Note HNO ID: [id number] Author: Elysia Esposito MD Service: ? Author Type: Physician Type: Progress Notes Filed: 09/01/2022 3:01 PM Note Text: Please see transcribed note [facility] 08-27-2022 Miscellaneous Notes Patient is already scheduled for f/u and treatment on Friday, 08/28. Angle Kamara RN Ordering today should be here sometime tomorrow, I would schedule Monday 08/28 or after. Thank you Guillermo Gusman rPh Images from the original note were not included. Asher Hummel MD You; [facility] Pool 1 hour ago (6:23 AM) Ok great. When will we be able to start him? Pharmacy: Please advise on the above. Thanks! Angle Kamara RN FYI: Call received from [facility]. Pt's appeal for Luspatercept has been approved from 07/30/22-11/11/22. Authorization #: [id number]. An approval letter will be mailed to our office as well. Angle Kamara RN documented in this encounter [facility] 08-22-2022 Miscellaneous Notes [facility] has transfusion orders for pt. Notes his orders are for leuko reduced and irradiated cells. Per nurse, the pt has never received irradiated cells in the past. Pt's chart reviewed. Prior orders are unmarked or for leuko reduced only. Discussed w/ Dr Edmondson who orders to cancel the order for irradiated. Rosetta @ [facility] notified and verbalizes understanding. Asks that we fax the corrected order to [phone]. Order faxed as requested. Angle Kamara RN documented in this encounter [facility] 08-21-2022 Miscellaneous Notes 2 units packed RBC's at [facility] on 08-22-22. Lab today. Order and cbc were faxed to central scheduling. documented in this encounter [facility] 08-21-2022 Note [facility] 08-21-2022 History of Present illness Narrative Images from the original note were not included. NAME: Sandip Broussard [facility] NO.: [id number] DATE OF SERVICE: August 21, 2022 (Michelle) [...] Epo usage. 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 [...] TET2 p.?, [id number], c.4182+1G>A VAF: 44.5% TET2 p.H3832J, [id number], c.5618T>C VAF: 40% ZRSR2 p.R30Vfs*8, NM_005089.3, [...] surgery w/ Dr. Hyde Last fall in [place]. Has tranexamic acid at home. Requesting ENT referral at [facility]. He is dehydrated and not keeping up with fluids. 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 Wilfred Martinez APRN.[facility] Hematology and Oncology Services Provided at: [place], [place] CC: Dr. Flash Gomez (Cardiology [facility]) Dr. Oumou Esposito I spent a total of 30 minutes on the date of the service which included preparing to see the patient, wfzy-fy-djem patient care, completing clinical documentation, obtaining and/or reviewing separately obtained history, performing a medically appropriate examination, counseling and educating the patient/family/caregiver, ordering medications, tests, or procedures, independently interpreting results (not separately reported), and communicating results to the patient/family/caregiver. documented in this encounter [facility] 08-14-2022 Miscellaneous Notes Orders faxed to [facility] lab. Savannah notified and confirms receipt. Angle Kamara RN Signed. Wilfred Martinez APRN.[facility] is requesting an order for H&H. Order pended. Angle Kamara RN documented in this encounter [facility] 08-14-2022 Miscellaneous Notes Called and spoke with [...] notify . TY. documented in this encounter [facility] 08-14-2022 Note [facility] 08-14-2022 Miscellaneous Notes 2 units packed RBC's at [facility]. Left detailed message and faxed the order with cbc. They will call the patient to schedule this appointment. documented in this encounter [facility] 08-14-2022 History of Present illness Narrative Images from the original note were not included. NAME: Sandip Broussard CLINIC NO.: [id number] DATE OF SERVICE: August 14, 2022 (Michelle) [...] Epo usage. 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 [...] TET2 p.?, [id number], c.4182+1G>A VAF: 44.5% TET2 p.R2095S, [id number], c.5618T>C VAF: 40% ZRSR2 p.R30Vfs*8, NM_005089.3, [...] 5 days ago. Due to See Dr. Esopsito next 04/18/2022 Will cancel Vidaza for now. [...] surgery w/ Dr. Hyde Last fall in [place]. Has tranexamic acid at home. Requesting ENT referral at [facility]. He is dehydrated and not keeping up with fluids. 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 Since stopping the aspirin he has not [...] No family history on file. Wilfred Martinez APRN.[facility] Hematology and Oncology Services Provided at: [place], [place] CC: Dr. Flash Gomez (Cardiology [facility]) Dr. Oumou Esposito I spent a total of 30 minutes on the date of the service which included preparing to see the patient, lcmr-pp-bebt patient care, completing clinical documentation, obtaining and/or reviewing separately obtained history, performing a medically appropriate examination, counseling and educating the patient/family/caregiver, ordering medications, tests, or procedures, independently interpreting results (not separately reported), and communicating results to the patient/family/caregiver. documented in this encounter [facility] 08-13-2022 Miscellaneous Notes Addended by: ASHER HUMMEL on: 08/13/2022 06:04 PM Modules accepted: Orders Patient has an appt on 08/14/22. Would you like labs, if so place orders.Opal Campbell MA documented in this encounter [facility] 08-07-2022 Note [facility] 08-07-2022 Instructions Asher Hummel MD - 08/07/2022 3:54 PM EST Continue weekly low dose decitabine Await luspatercept approval Transfusion needed tomorrow/Friday, hgb 7.2 RTC in 1 week for labs and continue treatment. Decitabine Retacrit Recommended ensure/boost for increased calories documented in this encounter [facility] 08-07-2022 History of Present illness Narrative Images from the original note were not included. NAME: Sandip Broussard CLINIC NO.: [id number] DATE OF SERVICE: August 07, 2022 (Estephanie) [...] Epo usage. 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 [...] TET2 p.?, [id number], c.4182+1G>A VAF: 44.5% TET2 p.Y6579K, [id number], c.5618T>C VAF: 40% ZRSR2 p.R30Vfs*8, NM_005089.3, [...] surgery w/ Dr. Hyde Last fall in [place]. Has tranexamic acid at home. Requesting ENT referral at [facility]. He is dehydrated and not keeping up with fluids. 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 Since stopping the aspirin he has not [...] which included preparing to see the patient, wefj-rw-epcy patient care, completing clinical documentation, obtaining and/or reviewing separately obtained history, performing a medically appropriate examination, counseling and educating the patient/family/caregiver, ordering medications, tests, or procedures, communicating with other HCPs (not separately reported), and independently interpreting results (not separately reported). Asher Hummel MD, CPE Hematology and Oncology Services Provided at: [place], [place] CC: Dr. Flash Gomez (Cardiology [facility]) Dr. Oumou Esposito documented in this encounter [facility] 07-30-2022 Note [facility] 07-30-2022 History of Present illness Narrative Images from the original note were not included. NAME: Sandip Broussard [facility] NO.: [id number] DATE OF SERVICE: July 30, 2022 (Lori [...] Epo usage. 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 [...] TET2 p.?, [id number], c.4182+1G>A VAF: 44.5% TET2 p.E4006X, [id number], c.5618T>C VAF: 40% ZRSR2 p.R30Vfs*8, NM_005089.3, [...] bad week. Nicki - bladder cancer Pipes froconi Wasn't too happy with prognosis laid out [...] surgery w/ Dr. Hyde Last fall in [place]. Has tranexamic acid at home. Requesting ENT referral at [facility]. He is dehydrated and not keeping up with fluids. 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 Since stopping the aspirin he has not [...] Sandoval PA-C CC: Dr. Flash Gomez (Cardiology [facility]) Dr. Oumou Esposito documented in this encounter [facility] 07-25-2022 Miscellaneous Notes Pt's notified that pt did not receive Retacrit injection on 07/23. [facility], pt is being changed to Luspatercept due to not responding to Retacrit. Pts notified and verbalizes understanding. Pt will receive Luspatercept once approved by insurance. Miriam Elizabeth RN documented in this encounter [facility] 07-24-2022 Miscellaneous Notes [facility] called a critical HCT 22.2. Pt is scheduled for PRBC transfusion. They are faxing labs to scan into his chart. BRYNN: Please advise of any new orders Thank you, Fide documented in this encounter [facility] 07-23-2022 Note [facility] 07-23-2022 Miscellaneous Notes Orders received for 1 unit and 2 units of PRBC's. Confirmed with Dr. Hummel who stated 2 units. Call placed to [facility] and had to leave a message to schedule patient for transfusion on . Ada Perez documented in this encounter [facility] 07-23-2022 Instructions Asher Hummel MD - 07/23/2022 2:54 PM EST Continue low dose decitabine weekly x (Friday') Luspatercept when approved q 21 days. Retacrit today and weekly for Hgb < 12 RTC with 1 week on 07/30/2022 Labs same day. See Wilfred Transfuse this at [facility] x 1 unit documented in this encounter [facility] 07-23-2022 History of Present illness Narrative Images from the original note were not included. NAME: Sandip Broussard CLINIC NO.: [id number] DATE OF SERVICE: July 23, 2022 ([facility]) Some elements in this clinic note that [...] Epo usage. 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 [...] TET2 p.?, [id number], c.4182+1G>A VAF: 44.5% TET2 p.O5585N, [id number], c.5618T>C VAF: 40% ZRSR2 p.R30Vfs*8, NM_005089.3, c.88delC VAF: 91.1% And the following variant(s) of uncertain significance: BCORL1 p.R72W NM_021946.4: c.214C>T VAF: 100% PLAN: Continue low dose decitabine weekly x (Friday's) Luspatercept when approved q 21 days. Retacrit today and weekly for Hgb < 12 RTC with 1 week on 07/30/2022 Labs same day. See Wilfred Transfuse this at [facility] x 1 unit [...] surgery w/ Dr. Hyde Last fall in [place]. Has tranexamic acid at home. Requesting ENT referral at [facility]. He is dehydrated and not keeping up with fluids. 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 Since stopping the aspirin he has not [...] which included preparing to see the patient, thsy-qp-tdrv patient care, completing clinical documentation, obtaining and/or reviewing separately obtained history, performing a medically appropriate examination, counseling and educating the patient/family/caregiver, ordering medications, tests, or procedures, communicating with other HCPs (not separately reported), independently interpreting results (not separately reported), and communicating results to the patient/family/caregiver. Asher Hummel MD, CPE Hematology and Oncology Services Provided at: [place], [place] CC: Dr. Flash Gomez (Cardiology [facility]) Dr. Oumou Esposito documented in this encounter [facility] 07-18-2022 Miscellaneous Notes Pt's spouse notified and [...] Angle Kamara RN documented in this encounter [facility] 07-16-2022 Note [facility] 07-16-2022 Nurse Note Additional intake questions: Has the patient had fever, nausea, vomiting, diarrhea, constipation, fatigue for > 1 week? Yes, diarrhea ( 1 times in last 24 hours), fatigue, SOB, and Provider Notified Does the patient have a decreased appetite? No Does patient want to see a Dance Historian? No (yes to any of above refer patient to schedulers for dietitian appointment) ) Does patient have any new or increased numbness or tingling of extremities? No Is patient interested in fertility information? No Does patient need any prescription refills? No Does patient have an advanced directive in place? No, Patient referred to [facility] Electronically Signed By: Matt Christianson LPN documented in this encounter [facility] 07-16-2022 History of Present illness Narrative [place] [address] [place] CLINIC NOTE NAME: SANDIP BROUSSARD CLINIC #: [id number] DATE: 07/16/2022 AGE: 81 PHYSICIAN: Elysia Esposito [...] data presented at the national annual meeting [employer] 2021 has demonstrated a [...] locally in the interim Elysia Esposito M.D. [id number] /[id number] documented in this encounter [facility] 07-15-2022 Miscellaneous Notes 1 unit packed RBC's at [facility] on 07-18-22 10am. Lab on Friday07-16-22 11am. Orders and cbc were faxed to [facility]. documented in this encounter [facility] 07-15-2022 Note [facility] 07-15-2022 Instructions Asher Hummel MD - 07/15/2022 2:56 PM EST Continue low dose decitabine weekly x 2 days (Friday and Friday normally) This week plan second dose on with labs Retacrit today and weekly for Hgb < 12 RTC with 1 week on 07/23/2022 Labs same day. Transfuse on at [facility] documented in this encounter [facility] 07-15-2022 History of Present illness Narrative Images from the original note were not included. NAME: Sandip Broussard CLINIC NO.: [id number] DATE OF SERVICE: July 15, 2022 ([facility]) Some elements in this clinic note that [...] Epo usage. 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 [...] TET2 p.?, [id number], c.4182+1G>A VAF: 44.5% TET2 p.N7012H, [id number], c.5618T>C VAF: 40% ZRSR2 p.R30Vfs*8, NM_005089.3, [...] 07/23/2022 Labs same day. Transfuse on at [facility] x 1 unit [...] surgery w/ Dr. Hyde Last fall in [place]. Has tranexamic acid at home. Requesting ENT referral at [facility]. He is dehydrated and not keeping up with fluids. 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 Since stopping the aspirin he has not [...] which included preparing to see the patient, mxiy-hw-pjjy patient care, completing clinical documentation, obtaining and/or reviewing separately obtained history, performing a medically appropriate examination, counseling and educating the patient/family/caregiver, ordering medications, tests, or procedures, communicating with other HCPs (not separately reported), independently interpreting results (not separately reported), and communicating results to the patient/family/caregiver. Asher Hummel MD, CPE Hematology and Oncology Services Provided at: [place], [place] CC: Dr. Flash Gomez (Cardiology [facility]) Dr. Oumou Esposito documented in this encounter [facility] 07-11-2022 Miscellaneous Notes Yes. 2 units ordered per Radha on 07/08/22. Angle Kamara RN ----- Message from Asher Hummel MD sent at 07/09/2022 8:04 PM EST ----- Did we transfuse? documented in this encounter [facility] 07-08-2022 Note [facility] 07-08-2022 Miscellaneous Notes Haydee called stating she will call patient's to get him set up. Ada Perez Left message w/ [place] scheduling to get patient set up for transfusion. Ada Perez documented in this encounter [facility] 07-08-2022 History of Present illness Narrative Images from the original note were not included. NAME: Sandip Broussard [facility] NO.: [id number] DATE OF SERVICE: July 08, 2022 (Estephanie) [...] Epo usage. 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 [...] TET2 p.?, [id number], c.4182+1G>A VAF: 44.5% TET2 p.R9797U, [id number], c.5618T>C VAF: 40% ZRSR2 p.R30Vfs*8, NM_005089.3, [...] diuretic for a week and had some JAGN. Was able to get his medications refilled [...] surgery w/ Dr. Hyde Last fall in [place]. Has tranexamic acid at home. Requesting ENT referral at [facility]. He is dehydrated and not keeping up with fluids. 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 Since stopping the aspirin he has not [...] Sandoval PA-C CC: Dr. Flash Gomez (Cardiology [facility]) Dr. Oumou Esposito documented in this encounter [facility] 07-01-2022 Note [facility] 07-01-2022 Miscellaneous Notes Addended by: ASHER HUMMEL on: 07/01/2022 03:13 PM Modules accepted: Orders documented in this encounter [facility] 07-01-2022 Instructions Asher Hummel MD - 07/01/2022 2:38 PM EST Continue low dose decitabine weekly x 2 days (Friday and Friday) Retacrit today and weekly for Hgb < 12 RTC with Wilfred Garcia in 1 week Labs same day. documented in this encounter [facility] 07-01-2022 History of Present illness Narrative Images from the original note were not included. NAME: Sandip Broussard CLINIC NO.: [id number] DATE OF SERVICE: July 01, 2022 (Estephanie) [...] Epo usage. 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 [...] TET2 p.?, [id number], c.4182+1G>A VAF: 44.5% TET2 p.W9082J, [id number], c.5618T>C VAF: 40% ZRSR2 p.R30Vfs*8, NM_005089.3, [...] surgery w/ Dr. Hyde Last fall in [place]. Has tranexamic acid at home. Requesting ENT referral at [facility]. He is dehydrated and not keeping up with fluids. 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 Since stopping the aspirin he has not [...] which included preparing to see the patient, nqod-nt-ftyn patient care, completing clinical documentation, performing a medically appropriate examination, counseling and educating the patient/family/caregiver, ordering medications, tests, or procedures, and independently interpreting results (not separately reported). Asher Hummel MD, CPE Hematology and Oncology Services Provided at: [place], [place] CC: Dr. Flash Gomez (Cardiology [facility]) Dr. Oumou Esposito documented in this encounter [facility] 06-24-2022 Note HNO ID: [id number] Author: Lexi Velasquez RN Service: ? Author Type: Registered Nurse Type: Progress Notes Filed: 06/24/2022 3:04 PM Note Text: Patient to get a transfusion per HMartinez. Lexi Velasquez RN [facility] 06-24-2022 Note [facility] 06-24-2022 History of Present illness Narrative Patient to get a transfusion per HMartinez. Lexi Velasquez RN documented in this encounter [facility] 06-24-2022 History of Present illness Narrative Images from the original note were not included. NAME: Sandip Broussard [facility] NO.: [id number] DATE OF SERVICE: June 24, 2022 (Michelle) Some elements in this clinic note that are critical to medical decision making have been carefully reviewed and included from a prior clinic note dated: June 10, 2022. (Dr. Hummel) Referring Provider: Dr. Flash Pearl Additional Clinicians involved in Sanidp Broussard's care: Dr. José Luis Velasquez, Dr. Omuou Wade CC: MDS ASSESSMENT: 81 year old [...] Epo usage. 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 [...] TET2 p.?, [id number], c.4182+1G>A VAF: 44.5% TET2 p.R1857W, [id number], c.5618T>C VAF: 40% ZRSR2 p.R30Vfs*8, NM_005089.3, c.88delC VAF: 91.1% And the following variant(s) of uncertain significance: BCORL1 p.R72W NM_021946.4: c.214C>T VAF: 100% PLAN: Continue low dose decitabine weekly x 2 days (Friday and Friday) Retacrit today and weekly for Hgb < 12 Transfuse 2 unit PRBCs for Hgb < 8.5 (This week on Friday @ [facility] please) Follow up in 1 week with labs. TREATMENT TO DATE: 05/20/2022 - Low dose [...] surgery w/ Dr. Hyde Last fall in [place]. Has tranexamic acid at home. Requesting ENT referral at [facility]. He is dehydrated and not keeping up with fluids. 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 Since stopping the aspirin he has not [...] APRN.CNP Hematology and Oncology Services Provided at: [place], [place] CC: Dr. Flash Gomez (Cardiology [facility]) Dr. Oumou Esposito I spent a total of 30 minutes on the date of the service which included preparing to see the patient, kppj-lp-aqsm patient care, completing clinical documentation, obtaining and/or reviewing separately obtained history, performing a medically appropriate examination, counseling and educating the patient/family/caregiver, ordering medications, tests, or procedures, independently interpreting results (not separately reported), and communicating results to the patient/family/caregiver. documented in this encounter [facility] 06-17-2022 Note [facility] 06-17-2022 Miscellaneous Notes 1 unit packed RBC's at [facility] on Fri06-19-22 9am. Patient to do his lab on Friday06-17-22. documented in this encounter [facility] 06-17-2022 Instructions Asher Hummel MD - 06/17/2022 10:40 AM EST Continue low dose decitabine weekly x 2 days (Fri, Fri) Retacrit today and weekly for Hgb < 12 Transfuse 2 unit PRBCs for Hgb < 8.5 (this week on Friday @ [facility] please) Labs again once / week here RTC in 1 weeks - with labs - see Michelle documented in this encounter [facility] 06-17-2022 History of Present illness Narrative Images from the original note were not included. NAME: Sanidp Broussard [facility] NO.: [id number] DATE OF SERVICE: June 17, 2022 (Estephanie) [...] Epo usage. 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 [...] TET2 p.?, [id number], c.4182+1G>A VAF: 44.5% TET2 p.D1023Y, [id number], c.5618T>C VAF: 40% ZRSR2 p.R30Vfs*8, NM_005089.3, c.88delC VAF: 91.1% And the following variant(s) of uncertain significance: BCORL1 p.R72W NM_021946.4: c.214C>T VAF: 100% PLAN: Continue low dose decitabine weekly x 2 days (Fri, Fri) Retacrit today and weekly for Hgb < 12 Transfuse 2 unit PRBCs for Hgb < 8.5 (this week on Friday @ [facility] please) Labs again once / week here RTC in 1 weeks - with labs - see Wilfred/Radha TREATMENT TO DATE: 4. 05/20/2022 - Low [...] surgery w/ Dr. Hyde Last fall in [place]. Has tranexamic acid at home. Requesting ENT referral at [facility]. He is dehydrated and not keeping up with fluids. 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 Since stopping the aspirin he has not [...] which included preparing to see the patient, zbki-hc-hnqe patient care, completing clinical documentation, performing a medically appropriate examination, counseling and educating the patient/family/caregiver, ordering medications, tests, or procedures, and independently interpreting results (not separately reported). Asher Hummel MD, CPE Hematology and Oncology Services Provided at: [place], [place] CC: Dr. Flash Gomez (Cardiology [facility]) MD Elysia Merlos MD documented in this encounter [facility] 06-10-2022 Note [facility] 06-10-2022 History of Present illness Narrative NAME: Sandip Broussard [facility] NO.: [id number] DATE OF SERVICE: June 10, 2022 (Radha [...] Epo usage. 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 [...] TET2 p.?, [id number], c.4182+1G>A VAF: 44.5% TET2 p.P3687T, [id number], c.5618T>C VAF: 40% ZRSR2 p.R30Vfs*8, NM_005089.3, [...] surgery w/ Dr. Hyde Last fall in [place]. Has tranexamic acid at home. Requesting ENT referral at [facility]. He is dehydrated and not keeping up with fluids. 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 Since stopping the aspirin he has not [...] Sandoval PA-C CC: Dr. Flash Gomez (Cardiology [facility]) MD Elysia Merlos MD documented in this encounter [facility] 06-10-2022 Nurse Note Clinical questionnaires incomplete due to Nurse was Interrupted by provider during rooming process QNR not working. Showing an error. Ksenia Mohan documented in this encounter [facility] 06-07-2022 Miscellaneous Notes Per pt's chart, he is scheduled to receive 2 units RBC's at [facility] today. Angle Kamara RN Wade from [facility] lab called with critical results on patient. HBG 7.7 HCT 23.0(critical result) Jozef Mohan RN documented in this encounter [facility] 06-03-2022 Note [facility] 06-03-2022 Miscellaneous Notes 2 units packed RBC's at [facility] on Fri06-05-22 9am. Lab on Friday before noon. Order and cbc were faxed to [facility] documented in this encounter [facility] 06-03-2022 Instructions Asher Hummel MD - 06/03/2022 1:55 PM EST Continue low dose decitabine weekly x 2 days (Fri, Fri) Retacrit today and weekly for Hgb < 12 Transfuse 2 unit PRBCs for Hgb < 8.5 (this week on Friday @ [facility] please) Labs again once / week here Recheck H/H this Friday at [facility] and transfuse again if Hgb < 8.5 RTC in 1 weeks - with labs - see Wilfred documented in this encounter [facility] 06-03-2022 History of Present illness Narrative Images from the original note were not included. NAME: Sandip Broussard CLINIC NO.: [id number] DATE OF SERVICE: June 03, 2022 (Estephanie) [...] Epo usage. 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 [...] < 8.5 (this week on Friday @ [facility] please) Labs again once / week here Recheck H/H this Friday at [facility] and transfuse again [...] surgery w/ Dr. Hyde Last fall in [place]. Has tranexamic acid at home. Requesting ENT referral at [facility]. He is dehydrated and not keeping up with fluids. 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 Since stopping the aspirin he has not [...] which included preparing to see the patient, ihkt-hj-texx patient care, completing clinical documentation, obtaining and/or reviewing separately obtained history, performing a medically appropriate examination, counseling and educating the patient/family/caregiver, ordering medications, tests, or procedures, communicating with other HCPs (not separately reported), and independently interpreting results (not separately reported). Asher Hummel MD, CPE Hematology and Oncology Services Provided at: [place], [place] CC: Dr. Flash Gomez (Cardiology [facility]) MD Elysia Merlos MD documented in this encounter [facility] 05-23-2022 Miscellaneous Notes CYCLE 1/DAY 1 POST [...] Angle Kamara RN documented in this encounter [facility] 05-21-2022 Note [facility] 05-20-2022 Note [facility] 05-20-2022 Miscellaneous Notes The following approved medication [...] hours as needed. Authorizing Provider: WILFRED MARTINEZ APRN.DERRICK HELPER Scripts pended for antiemetics. Please review and approve. Thanks! Angle Kamara, RN documented in this encounter [facility] 05-20-2022 Miscellaneous Notes 1 unit packed RBC's at [facility] on Friday05-24-22 at 9am. Lab on anytime before noon. Patient and are aware of this appt. documented in this encounter [facility] 05-20-2022 Instructions Asher Hummel MD - 05/20/2022 2:40 PM EDT Start low dose decitabine weekly x 2 days (M, T) Retacrit today and weekly for Hgb < 12 Labs once / week RTC in 2 weeks Transfuse 1 unit PRBCs for Hgb < 8.5 (this week on @ [facility] please) documented in this encounter [facility] 05-20-2022 History of Present illness Narrative Images from the original note were not included. NAME: Sandip Broussard CLINIC NO.: [id number] DATE OF SERVICE: May 20, 2022 ([facility]) Some elements in this clinic note that [...] Epo usage. 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 [...] Hgb < 8.5 (this week on @ [facility] please) TREATMENT TO DATE: 4. 05/20/2022 - [...] blood loss. Updated Visit, October 01, 2021: lLoyd is 80 years old and returns with [...] surgery w/ Dr. Hyde Last fall in [place]. Has tranexamic acid at home. Requesting ENT referral at [facility]. He is dehydrated and not keeping up with fluids. 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 Since stopping the aspirin he has not [...] medication after PCP follow up [employer] 33 gauge glipiZIDE (GLUCOTROL) 5 mg [...] which included preparing to see the patient, mhen-tt-wdtr patient care, completing clinical documentation, obtaining and/or reviewing separately obtained history, performing a medically appropriate examination, counseling and educating the patient/family/caregiver, ordering medications, tests, or procedures, communicating with other HCPs (not separately reported), and independently interpreting results (not separately reported). Asher Hummel MD, CPE Hematology and Oncology Services Provided at: [place], [place] CC: Dr. Flash Gomez (Cardiology [facility]) MD Elysia Merlos MD documented in this encounter [facility] 05-20-2022 Nurse Note Patient is interested in getting Flu shot. Opal Campbell MA documented in this encounter [facility] 05-14-2022 Miscellaneous Notes Appointment scheduled & confirmed with pt's spouse. Per secure chat from Dr Hummel: hello - I'd like Don to start Dacogen on Friday will need education as well as consent. Thank you. Clerical: Please schedule. Pharmacy: [facility] Angle Kamara RN documented in this encounter [facility] 05-06-2022 Note [facility] 05-06-2022 Miscellaneous Notes Patient will get TSC tomorrow at [place] between 6:30 and 5 pm (outpatient lab hours) Tranfusion is scheduled for Friday, 05/08 @ 12:00 pm. Ada Perez documented in this encounter [facility] 05-06-2022 Instructions Asher Hummel MD - 05/06/2022 4:30 PM EDT Retacrit today and weekly for Hgb < 12 Labs once / week RTC in 2 weeks Transfuse 1 unit PRBCs for Hgb < 8.5 [facility] [facility] 05-06-2022 History of Present illness Narrative Images from the original note were not included. NAME: Sandip Broussard [facility] NO.: [id number] DATE OF SERVICE: May 06, 2022 (Estephanie) [...] Epo usage. 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 [...] PRBC transfusion Updated Visit, April 29, 2022: Don returns and has ongoing cytopenias. Awaiting bone [...] surgery w/ Dr. Hyde Last fall in [place]. Has tranexamic acid at home. Requesting ENT referral at [facility]. He is dehydrated and not keeping up with fluids. 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 Since stopping the aspirin he has not [...] which included preparing to see the patient, [id number] patient care, completing clinical documentation, obtaining and/or reviewing separately obtained history, performing a medically appropriate examination, counseling and educating the patient/family/caregiver, ordering medications, tests, or procedures, communicating with other HCPs (not separately reported), and independently interpreting results (not separately reported). Asher Hummel MD, CPE Hematology and Oncology Services Provided at: [place], [place] CC: Dr. Flash Gomez (Cardiology [facility]) MD Elysia Merlos MD documented in this encounter [facility] 04-29-2022 Miscellaneous Notes Lucero Jack calling from [facility]. States that they received pt's specimen. Needs to clarify if this is bone marrow or peripheral blood. Per Nicki Aguila in lab, bone marrow aspirate was submitted to [facility]. Lucero notified of the above and verbalizes understanding. No additional questions noted. Angle Kamara RN documented in this encounter [facility] 04-29-2022 Note [facility] 04-29-2022 Note [facility] 04-29-2022 History of Present illness Narrative Pt is unable to receive retacrit today d/t it not being authorized by insurance since it has only been 7 days. Per pharmacy. Pharmacy requesting to get retacrit authorized weekly. Pt made aware. Will keep next appointment. documented in this encounter [facility] 04-29-2022 Instructions Asher Hummel MD - 04/29/2022 1:07 PM EDT Retacrit today and weekly for Hgb < 12 RTC in 1 week, labs and review BMBx results. documented in this encounter [facility] 04-29-2022 History of Present illness Narrative Images from the original note were not included. NAME: Sandip Broussard CLINIC NO.: [id number] DATE OF SERVICE: April 29, 2022 (Estephanie) [...] Epo usage. 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 [...] 2 weeks. Updated Visit, March 07, 2021: lLoyd returns with his Lissette and was seen [...] surgery w/ Dr. Hyde Last fall in [place]. Has tranexamic acid at home. Requesting ENT referral at [facility]. He is dehydrated and not keeping up with fluids. 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 Since stopping the aspirin he has not [...] which included preparing to see the patient, [id number] patient care, obtaining and/or reviewing separately obtained history, ordering medications, tests, or procedures, and independently interpreting results (not separately reported). Asher Hummel MD, CPE Hematology and Oncology Services Provided at: [place], [place] CC: Dr. Flash Gomez (Cardiology [facility]) MD Elysia Merlos MD documented in this encounter [facility] 04-25-2022 Note [facility] 04-25-2022 Note [facility] 04-25-2022 History of Present illness Narrative BONE [...] Hummel MD Personnel present: Asher Hummel MD, labor crew supervisor. Bone marrow aspiration: Unilateral was obtained. Bone [...] In Department: Hematology/Oncology documented in this encounter [facility] 04-23-2022 Miscellaneous Notes signed Brynn/Wilfred: Order for Foundation One Heme pended (MISC test). Angle Kamara RN Patient coming in on for bone marrow biopsy. Dr. Esposito recommended hemotologic NGS testing. Can you please pend that for Dr. Hummel to sign and make sure he gets it drawn when here for bmbx? Thanks. Radha Sandoval PA-C documented in this encounter [facility] 04-22-2022 Note [facility] 04-18-2022 Note [facility] 04-18-2022 Nurse Note Additional intake questions: Has the patient had fever, nausea, vomiting, diarrhea, constipation, fatigue for > 1 week? Yes, fatigue and Provider Notified Does the patient have a decreased appetite? No Does patient want to see a Dance Historian? No (yes to any of above refer patient to schedulers for dietitian appointment) ) Does patient have any new or increased numbness or tingling of extremities? No Is patient interested in fertility information? No Does patient need any prescription refills? No Does patient have an advanced directive in place? Yes, no copy found in [facility] Patient referred to [facility] Electronically Signed By: Matt Christianson LPN documented in this encounter [facility] 04-18-2022 History of Present illness Narrative [place] [address] [place] CLINIC NOTE NAME: SANDIP BROUSSARD CLINIC #: [id number] DATE: 04/18/2022 AGE: 81 PHYSICIAN: Elysia Esposito [...] 1 son who works as a senior Storelift specialist at [facility]. He had a big family of 10. 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 Elysia Esposito M.D. AA:[id number] /[id number] documented in this encounter [facility] 04-15-2022 Miscellaneous Notes Discussed w/ Wilfred. No [...] [facility] appointment with oncology on . It would be too long of a day too far from home. They want to receive a blood transfusion at [facility]. They are concerned that patient may drop further prior to and want a transfusion if needed before appointment. Please advise and set up transfusion at [place] and call pt if needed. Thank you. documented in this encounter [facility] 04-15-2022 Nurse Note Labs reviewed with patient and questions answers/discussion about possible transfusion. See telephone encounter. documented in this encounter [facility] 04-08-2022 Note [facility] 04-08-2022 Instructions Asher Hummel MD - 04/08/2022 3:14 PM EDT Labs on Friday Transfuse if Hgb is 7.0 or patient is symptomatic Aranesp and B12 today Keep appointment with Dr. Esposito 04/18/2022 RTC in 2 weeks with labs same day. documented in this encounter [facility] 04-08-2022 History of Present illness Narrative Images from the original note were not included. NAME: Sandip Broussard CLINIC NO.: [id number] DATE OF SERVICE: April 08, 2022 Some [...] Epo usage. 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 [...] surgery w/ Dr. Hyde Last fall in [place]. Has tranexamic acid at home. Requesting ENT referral at [facility]. He is dehydrated and not keeping up with fluids. 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 Since stopping the aspirin he has not [...] which included preparing to see the patient, [id number] patient care, completing clinical documentation, performing a medically appropriate examination, counseling and educating the patient/family/caregiver, ordering medications, tests, or procedures, and communicating with other HCPs (not separately reported). Asher Hummel MD, CPE Hematology and Oncology Services Provided at: [place], [place] CC: Dr. Flash Gomez (Cardiology [facility]) MD Elysia Merlos MD documented in this encounter [facility] 04-03-2022 Miscellaneous Notes Discussed with Dr Arias. No additional orders. Fide Puente RN Critical lab called Hgb 6.9/Hct 21.8. Pt has 2 units PRBC's ordered and I called and spoke to Rosetta at the [facility] infusion center and he is schedule for infusion of units at 0800 04/04/22. Note Hgb 7.0 HM/BRYNN: any further instructions? Fide Puente RN documented in this encounter [facility] 04-02-2022 Miscellaneous Notes 2 units packed RBC S at [facility] on 04-04-. 9am. Patient is going for lab draw on 04-03. Around noon documented in this encounter [facility] 04-02-2022 Miscellaneous Notes Transfusion orders signed per Wilfred and forwarded to Edd PSS, for scheduling. Angle Kamara RN Today's hgb 7. Pt's spouse notified and verbalizes understanding. Notes the pt c/o increased fatigue and weakness. Do you want to transfuse? Angle Kamara RN Pt requesting lab results be called to his spouse, Lissette [phone] when available. Thanks! documented in this encounter [facility] 03-21-2022 Miscellaneous Notes Don is scheduled 04/04 [...] your office call the cancer answer line-- [phone]-- since I am not sure how these [...] would be appreciated. documented in this encounter [facility] 03-19-2022 Miscellaneous Notes Pt's calls for yesterday's hgb results. Results reviewed w/ pt's spouse. Spouse verbalizes understanding. Denies any further questions at this time. Angle Kamara RN documented in this encounter [facility] 03-18-2022 Miscellaneous Notes Message left for pt to call our office back regarding lab results. Paris Jerry RN Patient is here for lab draw. Patient and spouse have asked us to send message to have someone call them today with the results. Thank you! Emily Horan Pss documented in this encounter [facility] 03-18-2022 Miscellaneous Notes Emailed cancer answer line [...] would be appreciated. documented in this encounter [facility] 03-11-2022 Note [facility] 03-11-2022 Miscellaneous Notes 2 units packed RBC's at [facility] on Friday03-12-22 8am. Lab today. Orders were faxed documented in this encounter [facility] 03-11-2022 Instructions Asher Hummel MD - 03/11/2022 2:54 PM EDT 1. Proceed with C9 Vidaza D1-5 2. Transfuse in [facility] this week 1 unit 3. Continue Retacrit q 2 weeks - labs every weeks 4. RTC in 4 weeks for C10 Vidaza 5. Discuss with Dr. Esposito. documented in this encounter [facility] 03-11-2022 History of Present illness Narrative Images from the original note were not included. NAME: Sandip Broussard CLINIC NO.: [id number] DATE OF SERVICE: March 11, 2022 Some [...] Epo usage. 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 [...] surgery w/ Dr. Hyde Last fall in [place]. Has tranexamic acid at home. Requesting ENT referral at [facility]. He is dehydrated and not keeping up with fluids. 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 Since stopping the aspirin he has not [...] which included preparing to see the patient, zihn-pf-pumm patient care, completing clinical documentation, performing a medically appropriate examination, counseling and educating the patient/family/caregiver, ordering medications, tests, or procedures, and communicating with other HCPs (not separately reported). Asher Hummel MD, CPE Hematology and Oncology Services Provided at: [place], [place] CC: Dr. Flash Gomez (Cardiology [facility]) Dr. Oumou Cho MD documented in this encounter [facility] 02-28-2022 Miscellaneous Notes Patient has been scheduled for transfusion at [place] on 8/5 @ 8:00 am. Faxed orders to [facility] Scheduling. He will get TSC today. Ada Perez documented in this encounter [facility] 02-25-2022 Note [facility] 02-25-2022 History of Present illness Narrative Dr. Hummel aware of pt hgb 7.1 and his reports of feeling fatigue, lighteaded. Retacrit given; Pt to come back in to office on for CBC. Patient agrees with plan and scheduled appointment. documented in this encounter [facility] 02-11-2022 Note [facility] 02-11-2022 History of Present illness Narrative Images from the original note were not included. NAME: Sandip Broussard [facility] NO.: [id number] DATE OF SERVICE: February 11 2022 (Elements copied from Dr. Segundo's note dated January 14, 2022, have been reviewed and updated where appropriate, and all reflect current assessment and medical decision making during today's encounter, February 11, 2022) Referring Provider: Dr. Flash Pearl Additional Clinicians involved in Sandip Brousasrd's care: Dr. José Luis Velasquez, Dr. Oumou [...] Epo usage. 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 [...] surgery w/ Dr. Hyde Last fall in [place]. Has tranexamic acid at home. Requesting ENT referral at [facility]. He is dehydrated and not keeping up with fluids. 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 Since stopping the aspirin he has not [...] Sandoval PA-C CC: Dr. Flash Gomez (Cardiology [facility]) Dr. Oumou Cho MD documented in this encounter [facility] 02-04-2022 Note [facility] 02-04-2022 Miscellaneous Notes [facility] lab calls w/ critical lab results: Hgb 6.8 Hct 21.1 Pt identifiers and results read back for verification. Pt scheduled for 2 units RBCs tomorrow, 02/05. Angle Kamara RN documented in this encounter [facility] 02-04-2022 Miscellaneous Notes 2 units packed RBC's at [facility] on 02-05 8am. He is stopping for lab draw today. Orders and cbc were faxed to [facility]. documented in this encounter [facility] 02-04-2022 History of Present illness Narrative VS taken. States he is here because he feels very fatigued and slightly more short of breath. Wants to f/u with his hgb from this am. Hgb 6.8. Dr. Hummel made aware of results and assessment. Pt will be receiving order for a transfusion and Informed of plan. Pt agrees. documented in this encounter [facility] 01-30-2022 Note HNO ID: [id number] Author: Miriam Elizabeth RN Service: ? Author Type: Registered Nurse Type: Progress Notes Filed: 01/30/2022 3:44 PM Note Text: Pt denies need for transfusion today, states he will call if his symptoms get worse. Miriam Elizabeth RN [facility] 01-30-2022 History of Present illness Narrative Pt denies need for transfusion today, states he will call if his symptoms get worse. Miriam Elizabeth RN documented in this encounter [facility] 01-21-2022 Note HNO ID: [id number] Author: Celena Lind RN Service: ? Author Type: Registered Nurse Type: Progress Notes Filed: 01/21/2022 3:53 PM Note Text: Cr 1.[address] Watt. Pt given 500 mls NS. [facility] 01-21-2022 History of Present illness Narrative Cr 1.[address] Watt. Pt given 500 mls NS. documented in this encounter [facility] 01-18-2022 Note [facility] 01-18-2022 History of Present illness Narrative Repeat Cr 2.[address] Watt by lead rn gilson Elizabeth. Pt will receive 1 L NS today and return sunday 01/21 for repeat labs. documented in this encounter [facility] 01-14-2022 Note HNO ID: [id number] Author: Lexi Velasquez RN Service: ? Author Type: Registered Nurse Type: Progress Notes Filed: 01/14/2022 3:44 PM Note Text: [facility] 01-14-2022 Note [facility] 01-14-2022 Miscellaneous Notes Cr 2.13 reviewed with [facility], pt to increase oral fluids at home, we will recheck a CMP on 01/17. Please sign pending order is agreeable. Thanks! Miriam Elizabeth RN documented in this encounter [facility] 01-14-2022 Miscellaneous Notes Pt scheduled for 1 unit of PRBCs TB Friday (01/16) @ 900am. Type and cross tomorrow (01/15). Confirmed with pt, order faxed. documented in this encounter [facility] 01-14-2022 History of Present illness Narrative documented in this encounter [facility] 01-14-2022 History of Present illness Narrative Images from the original note were not included. NAME: Sandip Broussard CLINIC NO.: [id number] DATE OF SERVICE: January 14, 2022 Some [...] Epo usage. 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 [...] surgery w/ Dr. Hyde Last fall in [place]. Has tranexamic acid at home. Requesting ENT referral at [facility]. He is dehydrated and not keeping up with fluids. 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 Since stopping the aspirin he has not [...] which included preparing to see the patient, [id number] patient care, completing clinical documentation, performing a medically appropriate examination and ordering medications, tests, or procedures. Asher Hummel MD, CPE Services Provided at: [place], [place] & [place], [place] CC: Dr. Flash Gomez (Cardiology [facility]) Dr. Oumou Cho MD documented in this encounter [facility] 01-07-2022 Nurse Note Patient Identification confirmed: yes. Injection given and documented on SEP per provider order. Kathy Morelos Ma documented in this encounter [facility] 01-02-2022 Miscellaneous Notes Added patient to the [...] Miriam Elizabeth RN documented in this encounter [facility] 12-21-2021 History of Present illness Narrative 10 documented in this encounter [facility] 12-17-2021 History of Present illness Narrative Patient states he was recently in the [facility] for a mild heart attack, was released. Then was admitted a few days later to the [facility] for fluid on his lungs. States they removed it and he is feeling much better. Patient states he has had to wear his oxygen all the time since his admission to the [facility]. Did not wear his in to the facility today bc he didn;t feel like he needed it . Then his Pulse ox was low and we had to put ours on him. Encouraged patient to wear his oxygen at all times. Lexi Velasquez RN Patient spouse would like to be called prior to him finishing treatment [phone] Erica Bain RN documented in this encounter [facility] 12-17-2021 History of Present illness Narrative Images from the original note were not included. NAME: Sandip Broussard CLINIC NO.: [id number] DATE OF SERVICE: December 17, 2021 Some [...] Epo usage. 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 [...] surgery w/ Dr. Hyde Last fall in [place]. Has tranexamic acid at home. Requesting ENT referral at [facility]. He is dehydrated and not keeping up with fluids. 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 Since stopping the aspirin he has not [...] 12/17/2021: Sodium 145, potassium 3.4, BUN 30, [employer]. 1.54, LDH 260, CBC: 1.98 > 10.2/32.5 [...] which included preparing to see the patient, [id number]-[id number] patient care, completing clinical documentation, obtaining and/or reviewing separately obtained history, performing a medically appropriate examination, counseling and educating the patient/family/caregiver and ordering medications, tests, or procedures. Asher Hummel MD, CPE Services Provided at: [place], [place] & [place], [place] CC: Dr. Flash Gomez (Cardiology [facility]) Dr. Oumou Cho MD documented in this encounter [facility] 11-29-2021 History of Present illness Narrative Images from the original note were not included. NAME: Sandip Broussard CLINIC NO.: [id number] DATE OF SERVICE: November 29, 2021 Some [...] Epo usage. 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 He was transfused, and medically managed after catheterization. 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 PLAN: 1. Hold Vidaza for 3 weeks (RTC in 3+ weeks on a Friday for possible start) 2. Consider Hospice - contact [facility] (current Home Health) 3. RTC in [...] new medications. Updated Visit, May 02, 2021: lLoyd returns with his Lissette and reports that [...] surgery w/ Dr. Hyde Last fall in [place]. Has tranexamic acid at home. Requesting ENT referral at [facility]. He is dehydrated and not keeping up with fluids. 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 Since stopping the aspirin he has not [...] which included preparing to see the patient, jpig-bu-nhum patient care, completing clinical documentation, obtaining and/or reviewing separately obtained history, performing a medically appropriate examination, ordering medications, tests, or procedures and care coordination (not separately reported). Asher Hummel MD, CPE Services Provided at: [place], [place] & [place], [place] CC: Dr. Flash Gomez (Cardiology [facility]) Dr. Oumou Cho MD documented in this encounter [facility] 11-29-2021 Miscellaneous Notes Records scanned. Update: Pt discharged home w/ home health on Friday, 11/25. [place]: Please scan pt's hospital records from [facility]. Thanks! Angle Kamara, RN Thank you for the update. FYI: Pt's calls to inform us that the pt is currently admitted to ICU @ [facility] after suffering a heart attack on Friday. Pt found to have pneumonia as well. Notes the pt's condition is stable as of now. Spouse will call back to reschedule pt's appointments once a discharge plan is in place. Angle Kamara RN documented in this encounter [facility] 11-28-2021 Miscellaneous Notes DISCHARGE CALL BACK Today's date: November 28, 2021 Notified of Pt discharge by: Pt's spouse Patient discharged on 11/25/21 from [facility] to Home with Homecare Nurse Primary Cancer Diagnosis: MDS Admitting Diagnosis: Myocardial Infarction Discharge Summary/SBAR reviewed: No - requested from HIM. Handoff Discussed with Transitional Rn Post Partum: N/A Psychosocial Risk Factors: None If patient [...] be calling to schedule f/u w/ pt's molded goods operator. Discharged home w/ new meds. Spouse will be bringing new meds w/ them to tomorrow's f/u appointment. Angle Kamara RN documented in this encounter [facility] 11-27-2021 Note MR#: [id number] I [facility] Pt. 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 ASSESSMENT AND PLAN: 1. [id number] myocardial infarction, likely type 2, was temporarily [...] 2 and was stable at discharge. 6. Vbhl-of-coeblkje mitral regurgitation noted on TE. 7. Coronary [...] syndrome, currently on azacitidine injections monthly per [facility]. The patient's hemoglobin was stable while at [...] the encoun (more content not included)... [facility] 11-16-2021 Miscellaneous Notes Per donald Asher/Dr. Brynn kumar for patient to wait for transfusion until Friday. Patient has been scheduled for transfusion @ [place] Friday, 11/19 @ 9:00 am. He will need to get TSC tomorrow before noon and go through the ER entrance. Spoke w/ November 16, 2021 12:01 PM and confirmed. Ada Perez Pt's notified and states the pt has c/o increased fatigue. Would like to proceed w/ transfusion @ [facility]. Orders given to MARII Puga. Angle Kamara RN Call placed to pt. No answer. Message left requesting call back. Angle Kamara RN ----- Message from Asher Hummel MD sent at 11/15/2021 4:32 PM EDT ----- Probably could use a transfusion if he feels bad. documented in this encounter [facility] 11-01-2021 History of Present illness Narrative Miriam Elizabeth RN documented in this encounter [facility] 10-29-2021 Miscellaneous Notes FYI: Pt's spouse reports that the pt is scheduled to receive a blood transfusion @ [facility] tomorrow @ 8 AM. Angle Kamara RN documented in this encounter [facility] 10-29-2021 History of Present illness Narrative Lab work at the [facility] today, results scanned in. No ANC available, ok to treat per Dr. Watt. Lexi Velasquez RN documented in this encounter [facility] 10-25-2021 History of Present illness Narrative Images from the original note were not included. NAME: Sandip Broussard CLINIC NO.: [id number] DATE OF SERVICE: October 25, 2021 Some [...] HPI: Updated Visit, October 25, 2021: Sandip rBoussard returns for scheduled follow up. He states [...] surgery w/ Dr. Hyde Last fall in [place]. Has tranexamic acid at home. Requesting ENT referral at [facility]. He is dehydrated and not keeping up with fluids. 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 Since stopping the aspirin he has not [...] Drug use: Not on file Wilfred Martinez APRN.CNP Services Provided at: [place], [place] CC: Dr. Flash Gomez (Cardiology [facility]) Dr. Oumou Wade documented in this encounter [facility] 10-15-2021 History of Present illness Narrative History: [...] EAC free of lesions. TM retracted. Neurologic: installation specialist II-XII grossly intact. Assessment/Plan: 1. H/o ETD. [...] 3 - Low documented in this encounter [facility] Evaluation + Plan note Future Appointments Appointment Date:03/10/2023 02:00:00 PM Scheduled Provider: Location:[facility] Appointment Type:FM Medicare Wellness Subsequent Appointment Date:03/10/2023 02:40:00 PM Scheduled Provider:Jacquelin Hernandes MD Location:[facility] Appointment Type: Open Diagnostic Tests PendingUrinalysis 01/10/23 [facility] Evaluation + Plan note Future Appointments Appointment Date:03/10/2023 02:00:00 PM Scheduled Provider: Location:[facility] Appointment Type: Medicare Wellness Subsequent Appointment Date:03/10/2023 02:40:00 PM Scheduled Provider:Jacquelin Hernandes MD Location:[facility] Appointment Type: Open [facility] Evaluation + Plan note Future Appointments Appointment Date:03/17/2023 02:40:00 PM Scheduled Provider:Jacquelin Hernandes MD Location:[facility] Appointment Type: Open Appointment Date:03/18/2023 01:00:00 PM Scheduled Provider:ANTONIA MERCER MD Location:.ONCOLOGY Appointment Type:ONC Supportive Care New (FT) Appointment Date:04/16/2023 02:40:00 PM Scheduled Provider:Jacquelin Hernandes MD Location:[facility] Appointment Type: Open Appointment Date:04/22/2023 02:00:00 PM Scheduled Provider: Location:.ONCOLOGY Appointment Type:ONC Office Visit 30 (FT) Appointment Date:04/05/2024 02:00:00 PM Scheduled Provider: Location:[facility] Appointment Type:FM Medicare Wellness Subsequent Diagnostic Tests PendingCBC w/ Auto Diff 03/11/23Comprehensive Metabolic Panel 04/01/23Lactate Dehydrogenase 04/01/23 Future Scheduled TestsStool Occult Blood 03/12/23 [facility] Evaluation note Diagnosis Chronic Eustachian tube dysfunction, bilateral- Primary Epistaxis documented in this encounter [facility] note* Diagnosis CRF (chronic renal failure), stage 4 (severe) (HCC)- Primary Anemia of chronic renal failure, stage 4 (severe) (HCC) 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 loss Iron deficiency anemia secondary to blood loss (chronic) CKD (chronic kidney disease) stage 4, GFR 15-29 ml/min (HCC) Chronic kidney disease, Stage IV (severe) Myelodysplastic syndrome (HCC) Myelodysplastic syndrome, unspecified documented in this encounter [facility] note* Diagnosis Myelodysplastic syndrome (HCC)- Primary [...] prostate Hyperkalemia Hyperpotassemia [facility]* Diagnosis Myelodysplastic syndrome (HCC)- Primary Myelodysplastic syndrome, unspecified [facility] Diagnosis Myelodysplastic syndrome (HCC)- Primary Myelodysplastic syndrome, unspecified documented [facility]* Diagnosis Myelodysplastic syndrome (HCC)- Primary Myelodysplastic syndrome, unspecified [facility] Diagnosis Myelodysplastic syndrome (HCC)- Primary Myelodysplastic syndrome, unspecified CRF (chronic renal failure), stage 4 (severe) (HCC) documented [facility]* Diagnosis Anemia of chronic renal failure, stage 4 (severe) (HCC)- Primary CRF (chronic renal failure), stage 4 (severe) (HCC) 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 loss Iron deficiency anemia secondary to blood loss (chronic) CKD (chronic kidney disease) stage 4, GFR 15-29 ml/min (HCC) Chronic kidney disease, Stage IV (severe) Myelodysplastic syndrome (HCC) Myelodysplastic syndrome, unspecified documented [facility]* Diagnosis Myelodysplastic syndrome (HCC)- Primary Myelodysplastic syndrome, unspecified CRF (chronic renal failure), stage 4 (severe) (HCC) Anemia of chronic renal failure, stage 4 (severe) (HCC) 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 documented [facility]* Diagnosis Acute heart failure, unspecified heart failure type (HCC)- Primary documented in this encounter [facility]* Diagnosis Myelodysplastic syndrome (HCC)- Primary Myelodysplastic syndrome, unspecified CRF (chronic renal failure), stage 4 (severe) (HCC) Anemia of chronic renal failure, stage 4 (severe) (HCC) 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 loss Iron deficiency anemia secondary to blood loss (chronic) CKD (chronic kidney disease) stage 4, GFR 15-29 ml/min (HCC) Chronic kidney disease, Stage IV (severe) documented [facility] this encounter [facility]* Diagnosis Myelodysplastic syndrome (HCC)- Primary Myelodysplastic syndrome, unspecified documented [facility] this [facility]* Diagnosis Myelodysplastic syndrome (HCC)- Primary Myelodysplastic syndrome, unspecified documented [facility] this [facility]* Diagnosis Myelodysplastic syndrome (HCC)- Primary Myelodysplastic syndrome, unspecified [facility] Diagnosis Myelodysplastic syndrome (HCC)- Primary Myelodysplastic [...] failure [facility] Diagnosis Anemia of chronic renal failure, stage 4 (severe) (HCC)- Primary 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 loss Iron deficiency anemia secondary to blood loss (chronic) Myelodysplastic syndrome (HCC) Myelodysplastic syndrome, unspecified [facility] Diagnosis Myelodysplastic syndrome (HCC)- Primary Myelodysplastic syndrome, unspecified CRF (chronic renal failure), stage 4 (severe) (HCC) Anemia of chronic renal failure, stage 4 (severe) (HCC) 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 loss Iron deficiency anemia secondary to blood loss (chronic) CKD (chronic kidney disease) stage 4, GFR 15-29 ml/min (HCC) Chronic kidney disease, Stage IV (severe) documented in this encounter [facility] note* Diagnosis Myelodysplastic syndrome (HCC)- Primary Myelodysplastic syndrome, unspecified documented [facility]* Diagnosis Myelodysplastic syndrome (HCC)- Primary Myelodysplastic syndrome, unspecified CRF (chronic renal failure), stage 4 (severe) (HCC) 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 [facility] Diagnosis CRF (chronic renal failure), stage 4 (severe) (HCC)- Primary Myelodysplastic syndrome (HCC) Myelodysplastic syndrome, unspecified documented [facility]* Diagnosis Myelodysplastic syndrome (HCC) Myelodysplastic syndrome, unspecified CRF (chronic renal failure), stage 4 (severe) (HCC) Anemia of chronic renal failure, stage 4 (severe) (HCC) 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 [facility] Diagnosis Anemia of chronic renal failure, stage 4 (severe) (HCC)- Primary documented [facility]* Diagnosis Myelodysplastic syndrome (HCC)- Primary Myelodysplastic syndrome, unspecified Anemia of chronic renal failure, stage 4 (severe) (HCC) [facility] Diagnosis Anemia of chronic renal failure, [...] (severe) [facility] Diagnosis CRF (chronic renal failure), stage 4 (severe) (HCC)- Primary [facility] Diagnosis Myelodysplastic syndrome (HCC)- Primary Myelodysplastic syndrome, unspecified CRF (chronic renal failure), stage 4 (severe) (HCC) [facility] Diagnosis CRF (chronic renal failure), stage 4 (severe) (HCC)- Primary Anemia of chronic renal failure, stage 4 (severe) (HCC) 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 loss Iron deficiency anemia secondary to blood loss (chronic) CKD (chronic kidney disease) stage 4, GFR 15-29 ml/min (HCC) Chronic kidney disease, Stage IV (severe) Myelodysplastic syndrome (HCC) Myelodysplastic syndrome, unspecified [facility]* Diagnosis Anemia of chronic renal failure, [...] (severe) [facility] Diagnosis Myelodysplastic syndrome (HCC)- Primary Myelodysplastic syndrome, unspecified CKD (chronic kidney disease) stage 4, GFR 15-29 ml/min (HCC) Chronic kidney disease, Stage IV (severe) Anemia of chronic renal failure, stage 4 (severe) (HCC) 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 loss Iron deficiency anemia secondary to blood loss (chronic) [facility] Diagnosis Myelodysplastic syndrome (HCC)- Primary Myelodysplastic syndrome, unspecified Anemia of chronic renal failure, stage 4 (severe) (HCC) [facility] Diagnosis Anemia of chronic renal failure, stage 4 (severe) (HCC)- Primary 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 loss Iron deficiency anemia secondary to blood loss (chronic) Myelodysplastic syndrome (HCC) Myelodysplastic syndrome, unspecified CRF (chronic renal failure), stage 4 (severe) (HCC) CKD (chronic kidney disease) stage 4, GFR 15-29 ml/min (HCC) Chronic kidney disease, Stage IV (severe) [facility] Diagnosis Myelodysplastic syndrome (HCC)- Primary Myelodysplastic syndrome, unspecified CKD (chronic kidney disease) stage 4, GFR 15-29 ml/min (HCC) Chronic kidney disease, Stage IV (severe) Anemia of chronic renal failure, stage 4 (severe) (HCC) [facility] Diagnosis Malignant neoplasm of prostate (HCC)- Primary Malignant neoplasm of prostate [facility] Diagnosis Myelodysplastic syndrome (HCC)- Primary Myelodysplastic syndrome, unspecified [facility] Diagnosis MDS (myelodysplastic syndrome) (HCC)- Primary Myelodysplastic syndrome, unspecified [facility] Diagnosis Myelodysplastic syndrome (HCC)- Primary Myelodysplastic syndrome, unspecified CRF (chronic renal failure), stage 4 (severe) (HCC) [facility]* Diagnosis Myelodysplastic syndrome (HCC)- Primary Myelodysplastic syndrome, unspecified CRF (chronic renal failure), stage 4 (severe) (HCC) Anemia of chronic renal failure, stage 4 (severe) (HCC) documented in this encounter [facility]* Diagnosis CRF (chronic renal failure), stage 4 (severe) (HCC)- Primary Anemia of chronic renal failure, stage 4 (severe) (HCC) 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 loss Iron deficiency anemia secondary to blood loss (chronic) CKD (chronic kidney disease) stage 4, GFR 15-29 ml/min (HCC) Chronic kidney disease, Stage IV (severe) Myelodysplastic syndrome (HCC) Myelodysplastic syndrome, unspecified documented in this encounter [facility] note* Diagnosis Anemia of chronic renal failure, stage 4 (severe) (HCC)- Primary 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 loss Iron deficiency anemia secondary to blood loss (chronic) Myelodysplastic syndrome (HCC) Myelodysplastic syndrome, unspecified CRF (chronic renal failure), stage 4 (severe) (HCC) CKD (chronic kidney disease) stage 4, GFR 15-29 ml/min (HCC) Chronic kidney disease, Stage IV (severe) documented in this encounter [facility] note* Diagnosis MDS (myelodysplastic syndrome) (HCC)- Primary Myelodysplastic syndrome, unspecified Anemia of chronic renal failure, stage 4 (severe) (HCC) 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 CRF (chronic renal failure), stage 4 (severe) (HCC) documented in this encounter [facility] note* Diagnosis CRF (chronic renal failure), stage 4 (severe) (HCC)- Primary Anemia of chronic renal failure, stage 4 (severe) (HCC) 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 loss Iron deficiency anemia secondary to blood loss (chronic) CKD (chronic kidney disease) stage 4, GFR 15-29 ml/min (HCC) Chronic kidney disease, Stage IV (severe) Myelodysplastic syndrome (HCC) Myelodysplastic syndrome, unspecified documented in this encounter [facility] note* Diagnosis Myelodysplastic syndrome (HCC)- Primary [...] inoculation against influenza documented in this encounter [facility] note* Diagnosis Myelodysplastic syndrome (HCC)- Primary Myelodysplastic syndrome, unspecified MDS (myelodysplastic syndrome) (HCC) Myelodysplastic syndrome, unspecified 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 CRF (chronic renal failure), stage 4 (severe) (HCC) documented in this encounter [facility] note* Diagnosis Myelodysplastic syndrome (HCC)- Primary Myelodysplastic syndrome, unspecified CRF (chronic renal failure), stage 4 (severe) (HCC) Anemia of chronic renal failure, stage 4 (severe) (HCC) 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 loss Iron deficiency anemia secondary to blood loss (chronic) CKD (chronic kidney disease) stage 4, GFR 15-29 ml/min (HCC) Chronic kidney disease, Stage IV (severe) documented in this encounter [facility] note* Diagnosis Myelodysplastic syndrome (HCC)- Primary Myelodysplastic syndrome, unspecified documented in this encounter [facility] note* Diagnosis MDS (myelodysplastic syndrome) (HCC)- Primary Myelodysplastic syndrome, unspecified Dependent for standing 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 CRF (chronic renal failure), stage 4 (severe) (HCC) 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 documented in this encounter [facility] note* Diagnosis Myelodysplastic syndrome (HCC)- Primary Myelodysplastic syndrome, unspecified CRF (chronic renal failure), stage 4 (severe) (HCC) Anemia of chronic renal failure, stage 4 (severe) (HCC) 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 loss Iron deficiency anemia secondary to blood loss (chronic) CKD (chronic kidney disease) stage 4, GFR 15-29 ml/min (HCC) Chronic kidney disease, Stage IV (severe) documented in this encounter [facility] note* Diagnosis MDS (myelodysplastic syndrome) (HCC)- Primary Myelodysplastic syndrome, unspecified [facility]* Diagnosis Myelodysplastic syndrome (HCC)- Primary Myelodysplastic syndrome, unspecified 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 CRF (chronic renal failure), stage 4 (severe) (HCC) CKD (chronic kidney disease) stage 4, GFR 15-29 ml/min (HCC) Chronic kidney disease, Stage IV (severe) [facility] Diagnosis Myelodysplastic syndrome (HCC)- Primary Myelodysplastic syndrome, unspecified CRF (chronic renal failure), stage 4 (severe) (HCC) Anemia of chronic renal failure, stage 4 (severe) (HCC) 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 loss Iron deficiency anemia secondary to blood loss (chronic) CKD (chronic kidney disease) stage 4, GFR 15-29 ml/min (HCC) Chronic kidney disease, Stage IV (severe) [facility] Diagnosis MDS (myelodysplastic syndrome) (HCC)- Primary Myelodysplastic syndrome, unspecified CRF (chronic renal failure), stage 4 (severe) (HCC) Anemia of chronic renal failure, stage 4 (severe) (HCC) documented in this encounter [facility] note* Diagnosis Myelodysplastic syndrome (HCC)- Primary Myelodysplastic syndrome, unspecified documented in this encounter [facility] note* Diagnosis MDS (myelodysplastic syndrome) (HCC)- [...] Stage IV (severe) documented in this encounter [facility] note* Diagnosis Myelodysplastic syndrome (HCC)- Primary [...] (severe) [facility] Diagnosis Myelodysplastic syndrome (HCC)- Primary Myelodysplastic syndrome, unspecified [facility]* Diagnosis MDS (myelodysplastic syndrome) (HCC)- Primary Myelodysplastic syndrome, unspecified CRF (chronic renal failure), stage 4 (severe) (HCC) [facility] Diagnosis Myelodysplastic syndrome (HCC)- Primary Myelodysplastic [...] (severe) [facility] Diagnosis Myelodysplastic syndrome (HCC)- Primary Myelodysplastic syndrome, unspecified [facility] Diagnosis Myelodysplastic syndrome (HCC)- Primary Myelodysplastic [...] (severe) [facility] Diagnosis Myelodysplastic syndrome (HCC)- Primary Myelodysplastic syndrome, unspecified 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 Anemia of chronic renal failure, stage 4 (severe) (HCC) [facility] Diagnosis MDS (myelodysplastic syndrome) (HCC)- Primary Myelodysplastic syndrome, unspecified [facility] Diagnosis Myelodysplastic syndrome (HCC)- Primary Myelodysplastic syndrome, unspecified [facility] Diagnosis MDS (myelodysplastic syndrome) (HCC)- Primary Myelodysplastic syndrome, unspecified 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 Anemia of chronic renal failure, stage 4 (severe) (HCC) Myelodysplastic syndrome (HCC) Myelodysplastic syndrome, unspecified [facility] Diagnosis MDS (myelodysplastic syndrome) (HCC)- Primary Myelodysplastic syndrome, unspecified Anemia of chronic renal failure, stage 4 (severe) (HCC) CRF (chronic renal failure), stage 4 (severe) (HCC) [facility] Diagnosis Anemia of chronic renal failure, stage 4 (severe) (HCC)- Primary 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 loss Iron deficiency anemia secondary to blood loss (chronic) Myelodysplastic syndrome (HCC) Myelodysplastic syndrome, unspecified [facility] Diagnosis Myelodysplastic syndrome (HCC)- Primary Myelodysplastic [...] (severe) [facility] Diagnosis MDS (myelodysplastic syndrome) (HCC)- Primary Myelodysplastic syndrome, unspecified Anemia of chronic renal failure, stage 4 (severe) (HCC) CRF (chronic renal failure), stage 4 (severe) (HCC) 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 Myelodysplastic syndrome (HCC) Myelodysplastic syndrome, unspecified [facility] Diagnosis 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 loss- Primary Iron deficiency anemia secondary to blood loss (chronic) MDS (myelodysplastic syndrome) (HCC) Myelodysplastic syndrome, unspecified Anemia of chronic renal failure, stage 4 (severe) (HCC) documented [facility]* Diagnosis Myelodysplastic syndrome (HCC)- Primary Myelodysplastic syndrome, unspecified Anemia of chronic renal failure, stage 4 (severe) (HCC) 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 [facility] Diagnosis Myelodysplastic syndrome (HCC)- Primary Myelodysplastic syndrome, unspecified documented in this encounter [facility] note* Diagnosis Myelodysplastic syndrome (HCC)- Primary Myelodysplastic syndrome, unspecified CRF (chronic renal failure), stage 4 (severe) (HCC) Anemia of chronic renal failure, stage 4 (severe) (HCC) 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 loss Iron deficiency anemia secondary to blood loss (chronic) CKD (chronic kidney disease) stage 4, GFR 15-29 ml/min (HCC) Chronic kidney disease, Stage IV (severe) documented in this encounter [facility] note* Diagnosis MDS (myelodysplastic syndrome) (HCC)- [...] due to hypovolemia [facility] Diagnosis Myelodysplastic syndrome (HCC)- Primary Myelodysplastic syndrome, unspecified documented in this encounter [facility] note* Diagnosis MDS (myelodysplastic syndrome) (HCC)- Primary Myelodysplastic syndrome, unspecified Anemia of chronic renal failure, stage 4 (severe) (HCC) documented in this encounter [facility]* Diagnosis MDS (myelodysplastic syndrome) (HCC)- Primary Myelodysplastic syndrome, unspecified Iron deficiency anemia due to chronic blood loss Iron deficiency anemia secondary to blood loss (chronic) Anemia of chronic renal failure, stage 4 (severe) (HCC) documented in this encounter [facility] note* Diagnosis Anemia of chronic renal failure, stage 4 (severe) (HCC)- Primary Iron deficiency anemia due to chronic blood loss Iron deficiency anemia secondary to blood loss (chronic) MDS (myelodysplastic syndrome) (HCC) Myelodysplastic syndrome, unspecified documented in this encounter [facility] note* Diagnosis MDS (myelodysplastic syndrome) (HCC)- Primary Myelodysplastic syndrome, unspecified Anemia of chronic renal failure, stage 4 (severe) (HCC) Iron deficiency anemia due to chronic blood loss Iron deficiency anemia secondary to blood loss (chronic) [facility] Diagnosis MDS (myelodysplastic syndrome) (HCC)- Primary Myelodysplastic syndrome, unspecified Anemia of chronic renal failure, stage 4 (severe) (HCC) documented in this encounter [facility]* Diagnosis MDS (myelodysplastic syndrome) (HCC)- Primary Myelodysplastic syndrome, unspecified Anemia, unspecified type documented in this encounter [facility]* Diagnosis MDS (myelodysplastic syndrome) (HCC)- Primary Myelodysplastic syndrome, unspecified [facility] Diagnosis Anemia of chronic renal failure, stage 4 (severe) (HCC)- Primary Iron deficiency anemia due to chronic blood loss Iron deficiency anemia secondary to blood loss (chronic) MDS (myelodysplastic syndrome) (HCC) Myelodysplastic syndrome, unspecified documented in this encounter [facility] note* Diagnosis MDS (myelodysplastic syndrome) (HCC)- Primary Myelodysplastic syndrome, unspecified Anemia of chronic renal failure, stage 4 (severe) (HCC) Type 2 diabetes mellitus with stage 3 chronic kidney disease, with long-term current use of insulin, unspecified whether stage 3a or 3b CKD (HCC) [facility] noteNo assessment [facility] Work Phone[facility] Narrative No data available for this section [facility] No data available for this section [facility] No data available for this section [facility] Summary Purpose Family History No Family History Records FoundNo Family History Records FoundNo Family History Records FoundNo Family History Records FoundNo Family History Records FoundNo Family History Records FoundNo Family History Records FoundNo Family History Records FoundNo Family History Records Found Advance Directives No Advanced Directives Records FoundDocuments on File Type Date 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 Advance Directive(s) 07/06/2020 6:15 PM Documents on File Type Date 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 Advance Directive(s) 07/06/2020 6:15 PM Advance Directive Response Recorded Date/ Time Advance Directives No March 22nd, 2 024 4:01pm Medications Administered Section Inactive Administered Medications - [...] Order MAR Action Action Dose Rate Site azaCITIDine 172.5 mg in [...] 10 mg, ORAL, ONCE, 1 dose, On Jeannette 02/14/22 at 1400 Given 02/14/2022 1:44 PM EDT [...] to 3 most recent administrations Medication Order [facility] Action Action Date Dose Rate Site decitabine [...] to 3 most recent administrations Medication Order [facility] Action Action Date Dose Rate Site decitabine [...] to 3 most recent administrations Medication Order [facility] Action Date Dose Rate Site decitabine 21.1 [...] to 3 most recent administrations Medication Order [facility] Action Date Dose Rate Site decitabine 21.1 [...] to 3 most recent administrations Medication Order [facility] Action Action Date Dose Rate Site decitabine 21.1 mg subcutaneous injection (DACOGEN) 21.1 mg (0.2 mg/kg/dose 105.5 kg Treatment plan Recorded weight), SUBCUTANEOUS, ONCE, 1 dose, On Fri08/14/22 at 1430, EXP:Immediate use Hazardous Chemotherapy Drug: Use appropriate PPE. Refrigerate. Given 08/14/2022 2:50 PM EST 21.1 mg Arm, Right Inactive Administered Medications - up to 3 most recent administrations Medication Order [facility] Action Action Dose Rate Site cyanocobalamin 1,000 [...] to 3 most recent administrations Medication Order [facility] Action Action Date Dose Rate Site luspatercept-aamt [...] to 3 most recent administrations Medication Order [facility] Action Action Dose Rate Site cyanocobalamin 1,000 [...] to 3 most recent administrations Medication Order [facility] Action Dose Rate Site cyanocobalamin 1,000 mcg [...] syndrome (HCC) Procedures CONSULT TO HEMATOLOGY/ONCOLOGY OFFICE/OUTPATIENT [facility] 60-74 MINUTES Asher Hummel MD [address] [place] [address] [place] [address] Referral ID Status Reason Start Date Expiration Date Visits Requested Visits Authorized [id number] Authorized PCP Requested Referral 03/15/2022 03/15/2023 1 1 Chief Complaint and Reason for Visit Chief Complaint nosebleed Additional Source Comments (unrecognized sect ion and content) No Status Records FoundNo Status Records FoundNo Status Records FoundNo Status Records FoundNo Status Records FoundNo Status Records FoundNo Status Records FoundNo Status Records FoundNo Status Records Found INFORMATION SOURCE (unrecogn ized section and content) DATE CREATED AUTHOR 07/05/2018 [facility] DATE CREATED AUTHOR AUTHOR'S ORGANIZ ATION 12/22/2021 [facility] DATE CREATED AUTHOR AUTHOR'S ORGANIZ ATION 01/03/2023 [facility] DATE CREATED AUTHOR AUTHOR'S ORGANIZ ATION 01/05/2023 [facility] DATE CREATED AUTHOR AUTHOR'S ORGANIZ ATION 08/20/2023 [facility] DATE CREATED AUTHOR AUTHOR'S ORGANIZ ATION 10/14/2023 [facility] DATE CREATED AUTHOR AUTHOR'S ORGANIZ ATION 10/20/2023 [facility] DATE CREATED AUTHOR AUTHOR'S ORGANIZ ATION 10/20/2023 [facility] DATE CREATED AUTHOR AUTHOR'S ORGANIZ ATION 10/20/2023 [facility] Source Comments (unrecognize d section and content) In the event this informatio n is protected by the Federal Confidentiality of Alcohol and Drug Abuse Patient Records regulations: The Federal rules restrict any use of the information to criminally investigate or prosecute any alcohol or drug abuse patient.[facility] the event this information is protected by the Federal Confidentiality of Alcohol and Drug Abuse Patient Records regulations: The Federal rules restrict any use of the information to criminally investigate or prosecute any alcohol or drug abuse patient.[facility] RehabilitationIn the event this information is protected by the Federal Confidentiality of Alcohol and Drug Abuse Patient Records regulations: The Federal rules restrict any use of the information to criminally investigate or prosecute any alcohol or drug abuse patient.[facility] RehabilitationIn the event this information is protected by the Federal Confidentiality of Alcohol and Drug Abuse Patient Records regulations: The Federal rules restrict any use of the information to criminally investigate or prosecute any alcohol or drug abuse patient.[facility] RehabilitationIn the event this information is protected by the Federal Confidentiality of Alcohol and Drug Abuse Patient Records regulations: The Federal rules restrict any use of the information to criminally investigate or prosecute any alcohol or drug abuse patient.[facility] RehabilitationIn the event this information is protected by the Federal Confidentiality of Alcohol and Drug Abuse Patient Records regulations: The Federal rules restrict any use of the information to criminally investigate or prosecute any alcohol or drug abuse patient.[facility] RehabilitationIn the event this information is protected by the Federal Confidentiality of Alcohol and Drug Abuse Patient Records regulations: The Federal rules restrict any use of the information to criminally investigate or prosecute any alcohol or drug abuse patient.[facility] the event this information is protected by the Federal Confidentiality of Alcohol and Drug Abuse Patient Records regulations: The Federal rules restrict any use of the information to criminally investigate or prosecute any alcohol or drug abuse patient.[facility] RehabilitationIn the event this information is protected by the Federal Confidentiality of Alcohol and Drug Abuse Patient Records regulations: The Federal rules restrict any use of the information to criminally investigate or prosecute any alcohol or drug abuse patient.[facility] RehabilitationIn the event this information is protected by the Federal Confidentiality of Alcohol and Drug Abuse Patient Records regulations: The Federal rules restrict any use of the information to criminally investigate or prosecute any alcohol or drug abuse patient.[facility] RehabilitationIn the event this information is protected by the Federal Confidentiality of Alcohol and Drug Abuse Patient Records regulations: The Federal rules restrict any use of the information to criminally investigate or prosecute any alcohol or drug abuse patient.[facility] RehabilitationIn the event this information is protected by the Federal Confidentiality of Alcohol and Drug Abuse Patient Records regulations: The Federal rules restrict any use of the information to criminally investigate or prosecute any alcohol or drug abuse patient.[facility] RehabilitationIn the event this information is protected by the Federal Confidentiality of Alcohol and Drug Abuse Patient Records regulations: The Federal rules restrict any use of the information to criminally investigate or prosecute any alcohol or drug abuse patient.[facility] RehabilitationIn the event this information is protected by the Federal Confidentiality of Alcohol and Drug Abuse Patient Records regulations: The Federal rules restrict any use of the information to criminally investigate or prosecute any alcohol or drug abuse patient.[facility] RehabilitationIn the event this information is protected by the Federal Confidentiality of Alcohol and Drug Abuse Patient Records regulations: The Federal rules restrict any use of the information to criminally investigate or prosecute any alcohol or drug abuse patient.[facility] RehabilitationIn the event this information is protected by the Federal Confidentiality of Alcohol and Drug Abuse Patient Records regulations: The Federal rules restrict any use of the information to criminally investigate or prosecute any alcohol or drug abuse patient.[facility] RehabilitationIn the event this information is protected by the Federal Confidentiality of Alcohol and Drug Abuse Patient Records regulations: The Federal rules restrict any use of the information to criminally investigate or prosecute any alcohol or drug abuse patient.[facility] RehabilitationIn the event this information is protected by the Federal Confidentiality of Alcohol and Drug Abuse Patient Records regulations: The Federal rules restrict any use of the information to criminally investigate or prosecute any alcohol or drug abuse patient.[facility] RehabilitationIn the event this information is protected by the Federal Confidentiality of Alcohol and Drug Abuse Patient Records regulations: The Federal rules restrict any use of the information to criminally investigate or prosecute any alcohol or drug abuse patient.[facility] RehabilitationIn the event this information is protected by the Federal Confidentiality of Alcohol and Drug Abuse Patient Records regulations: The Federal rules restrict any use of the information to criminally investigate or prosecute any alcohol or drug abuse patient.[facility] RehabilitationIn the event this information is protected by the Federal Confidentiality of Alcohol and Drug Abuse Patient Records regulations: The Federal rules restrict any use of the information to criminally investigate or prosecute any alcohol or drug abuse patient.[facility] RehabilitationIn the event this information is protected by the Federal Confidentiality of Alcohol and Drug Abuse Patient Records regulations: The Federal rules restrict any use of the information to criminally investigate or prosecute any alcohol or drug abuse patient.[facility] RehabilitationIn the event this information is protected by the Federal Confidentiality of Alcohol and Drug Abuse Patient Records regulations: The Federal rules restrict any use of the information to criminally investigate or prosecute any alcohol or drug abuse patient.[facility] RehabilitationIn the event this information is protected by the Federal Confidentiality of Alcohol and Drug Abuse Patient Records regulations: The Federal rules restrict any use of the information to criminally investigate or prosecute any alcohol or drug abuse patient.[facility] RehabilitationIn the event this information is protected by the Federal Confidentiality of Alcohol and Drug Abuse Patient Records regulations: The Federal rules restrict any use of the information to criminally investigate or prosecute any alcohol or drug abuse patient.[facility] RehabilitationIn the event this information is protected by the Federal Confidentiality of Alcohol and Drug Abuse Patient Records regulations: The Federal rules restrict any use of the information to criminally investigate or prosecute any alcohol or drug abuse patient.[facility] RehabilitationIn the event this information is protected by the Federal Confidentiality of Alcohol and Drug Abuse Patient Records regulations: The Federal rules restrict any use of the information to criminally investigate or prosecute any alcohol or drug abuse patient.[facility] RehabilitationIn the event this information is protected by the Federal Confidentiality of Alcohol and Drug Abuse Patient Records regulations: The Federal rules restrict any use of the information to criminally investigate or prosecute any alcohol or drug abuse patient.[facility] RehabilitationIn the event this information is protected by the Federal Confidentiality of Alcohol and Drug Abuse Patient Records regulations: The Federal rules restrict any use of the information to criminally investigate or prosecute any alcohol or drug abuse patient.[facility] RehabilitationIn the event this information is protected by the Federal Confidentiality of Alcohol and Drug Abuse Patient Records regulations: The Federal rules restrict any use of the information to criminally investigate or prosecute any alcohol or drug abuse patient.[facility] RehabilitationIn the event this information is protected by the Federal Confidentiality of Alcohol and Drug Abuse Patient Records regulations: The Federal rules restrict any use of the information to criminally investigate or prosecute any alcohol or drug abuse patient.[facility] RehabilitationIn the event this information is protected by the Federal Confidentiality of Alcohol and Drug Abuse Patient Records regulations: The Federal rules restrict any use of the information to criminally investigate or prosecute any alcohol or drug abuse patient.[facility] RehabilitationIn the event this information is protected by the Federal Confidentiality of Alcohol and Drug Abuse Patient Records regulations: The Federal rules restrict any use of the information to criminally investigate or prosecute any alcohol or drug abuse patient.[facility] RehabilitationIn the event this information is protected by the Federal Confidentiality of Alcohol and Drug Abuse Patient Records regulations: The Federal rules restrict any use of the information to criminally investigate or prosecute any alcohol or drug abuse patient.[facility] RehabilitationIn the event this information is protected by the Federal Confidentiality of Alcohol and Drug Abuse Patient Records regulations: The Federal rules restrict any use of the information to criminally investigate or prosecute any alcohol or drug abuse patient.[facility] RehabilitationIn the event this information is protected by the Federal Confidentiality of Alcohol and Drug Abuse Patient Records regulations: The Federal rules restrict any use of the information to criminally investigate or prosecute any alcohol or drug abuse patient.[facility] RehabilitationIn the event this information is protected by the Federal Confidentiality of Alcohol and Drug Abuse Patient Records regulations: The Federal rules restrict any use of the information to criminally investigate or prosecute any alcohol or drug abuse patient.[facility] RehabilitationIn the event this information is protected by the Federal Confidentiality of Alcohol and Drug Abuse Patient Records regulations: The Federal rules restrict any use of the information to criminally investigate or prosecute any alcohol or drug abuse patient.[facility] RehabilitationIn the event this information is protected by the Federal Confidentiality of Alcohol and Drug Abuse Patient Records regulations: The Federal rules restrict any use of the information to criminally investigate or prosecute any alcohol or drug abuse patient.[facility] RehabilitationIn the event this information is protected by the Federal Confidentiality of Alcohol and Drug Abuse Patient Records regulations: The Federal rules restrict any use of the information to criminally investigate or prosecute any alcohol or drug abuse patient.[facility] RehabilitationIn the event this information is protected by the Federal Confidentiality of Alcohol and Drug Abuse Patient Records regulations: The Federal rules restrict any use of the information to criminally investigate or prosecute any alcohol or drug abuse patient.[facility] RehabilitationIn the event this information is protected by the Federal Confidentiality of Alcohol and Drug Abuse Patient Records regulations: The Federal rules restrict any use of the information to criminally investigate or prosecute any alcohol or drug abuse patient.[facility] RehabilitationIn the event this information is protected by the Federal Confidentiality of Alcohol and Drug Abuse Patient Records regulations: The Federal rules restrict any use of the information to criminally investigate or prosecute any alcohol or drug abuse patient.[facility] RehabilitationIn the event this information is protected by the Federal Confidentiality of Alcohol and Drug Abuse Patient Records regulations: The Federal rules restrict any use of the information to criminally investigate or prosecute any alcohol or drug abuse patient.[facility] RehabilitationIn the event this information is protected by the Federal Confidentiality of Alcohol and Drug Abuse Patient Records regulations: The Federal rules restrict any use of the information to criminally investigate or prosecute any alcohol or drug abuse patient.[facility] RehabilitationIn the event this information is protected by the Federal Confidentiality of Alcohol and Drug Abuse Patient Records regulations: The Federal rules restrict any use of the information to criminally investigate or prosecute any alcohol or drug abuse patient.[facility] RehabilitationIn the event this information is protected by the Federal Confidentiality of Alcohol and Drug Abuse Patient Records regulations: The Federal rules restrict any use of the information to criminally investigate or prosecute any alcohol or drug abuse patient.[facility] RehabilitationIn the event this information is protected by the Federal Confidentiality of Alcohol and Drug Abuse Patient Records regulations: The Federal rules restrict any use of the information to criminally investigate or prosecute any alcohol or drug abuse patient.[facility] RehabilitationIn the event this information is protected by the Federal Confidentiality of Alcohol and Drug Abuse Patient Records regulations: The Federal rules restrict any use of the information to criminally investigate or prosecute any alcohol or drug abuse patient.[facility] RehabilitationIn the event this information is protected by the Federal Confidentiality of Alcohol and Drug Abuse Patient Records regulations: The Federal rules restrict any use of the information to criminally investigate or prosecute any alcohol or drug abuse patient.[facility] RehabilitationIn the event this information is protected by the Federal Confidentiality of Alcohol and Drug Abuse Patient Records regulations: The Federal rules restrict any use of the information to criminally investigate or prosecute any alcohol or drug abuse patient.[facility] RehabilitationIn the event this information is protected by the Federal Confidentiality of Alcohol and Drug Abuse Patient Records regulations: The Federal rules restrict any use of the information to criminally investigate or prosecute any alcohol or drug abuse patient.[facility] RehabilitationIn the event this information is protected by the Federal Confidentiality of Alcohol and Drug Abuse Patient Records regulations: The Federal rules restrict any use of the information to criminally investigate or prosecute any alcohol or drug abuse patient.[facility] RehabilitationIn the event this information is protected by the Federal Confidentiality of Alcohol and Drug Abuse Patient Records regulations: The Federal rules restrict any use of the information to criminally investigate or prosecute any alcohol or drug abuse patient.[facility] RehabilitationIn the event this information is protected by the Federal Confidentiality of Alcohol and Drug Abuse Patient Records regulations: The Federal rules restrict any use of the information to criminally investigate or prosecute any alcohol or drug abuse patient.[facility] RehabilitationIn the event this information is protected by the Federal Confidentiality of Alcohol and Drug Abuse Patient Records regulations: The Federal rules restrict any use of the information to criminally investigate or prosecute any alcohol or drug abuse patient.[facility] RehabilitationIn the event this information is protected by the Federal Confidentiality of Alcohol and Drug Abuse Patient Records regulations: The Federal rules restrict any use of the information to criminally investigate or prosecute any alcohol or drug abuse patient.[facility] the event this information is protected by the Federal Confidentiality of Alcohol and Drug Abuse Patient Records regulations: The Federal rules restrict any use of the information to criminally investigate or prosecute any alcohol or drug abuse patient.[facility] RehabilitationIn the event this information is protected by the Federal Confidentiality of Alcohol and Drug Abuse Patient Records regulations: The Federal rules restrict any use of the information to criminally investigate or prosecute any alcohol or drug abuse patient.[facility] RehabilitationIn the event this information is protected by the Federal Confidentiality of Alcohol and Drug Abuse Patient Records regulations: The Federal rules restrict any use of the information to criminally investigate or prosecute any alcohol or drug abuse patient.[facility] RehabilitationIn the event this information is protected by the Federal Confidentiality of Alcohol and Drug Abuse Patient Records regulations: The Federal rules restrict any use of the information to criminally investigate or prosecute any alcohol or drug abuse patient.[facility] RehabilitationIn the event this information is protected by the Federal Confidentiality of Alcohol and Drug Abuse Patient Records regulations: The Federal rules restrict any use of the information to criminally investigate or prosecute any alcohol or drug abuse patient.[facility] RehabilitationIn the event this information is protected by the Federal Confidentiality of Alcohol and Drug Abuse Patient Records regulations: The Federal rules restrict any use of the information to criminally investigate or prosecute any alcohol or drug abuse patient.[facility] RehabilitationIn the event this information is protected by the Federal Confidentiality of Alcohol and Drug Abuse Patient Records regulations: The Federal rules restrict any use of the information to criminally investigate or prosecute any alcohol or drug abuse patient.[facility] RehabilitationIn the event this information is protected by the Federal Confidentiality of Alcohol and Drug Abuse Patient Records regulations: The Federal rules restrict any use of the information to criminally investigate or prosecute any alcohol or drug abuse patient.[facility] RehabilitationIn the event this information is protected by the Federal Confidentiality of Alcohol and Drug Abuse Patient Records regulations: The Federal rules restrict any use of the information to criminally investigate or prosecute any alcohol or drug abuse patient.[facility] RehabilitationIn the event this information is protected by the Federal Confidentiality of Alcohol and Drug Abuse Patient Records regulations: The Federal rules restrict any use of the information to criminally investigate or prosecute any alcohol or drug abuse patient.[facility] RehabilitationIn the event this information is protected by the Federal Confidentiality of Alcohol and Drug Abuse Patient Records regulations: The Federal rules restrict any use of the information to criminally investigate or prosecute any alcohol or drug abuse patient.[facility] RehabilitationIn the event this information is protected by the Federal Confidentiality of Alcohol and Drug Abuse Patient Records regulations: The Federal rules restrict any use of the information to criminally investigate or prosecute any alcohol or drug abuse patient.[facility] RehabilitationIn the event this information is protected by the Federal Confidentiality of Alcohol and Drug Abuse Patient Records regulations: The Federal rules restrict any use of the information to criminally investigate or prosecute any alcohol or drug abuse patient.[facility] RehabilitationIn the event this information is protected by the Federal Confidentiality of Alcohol and Drug Abuse Patient Records regulations: The Federal rules restrict any use of the information to criminally investigate or prosecute any alcohol or drug abuse patient.[facility] RehabilitationIn the event this information is protected by the Federal Confidentiality of Alcohol and Drug Abuse Patient Records regulations: The Federal rules restrict any use of the information to criminally investigate or prosecute any alcohol or drug abuse patient.[facility] RehabilitationIn the event this information is protected by the Federal Confidentiality of Alcohol and Drug Abuse Patient Records regulations: The Federal rules restrict any use of the information to criminally investigate or prosecute any alcohol or drug abuse patient.[facility] RehabilitationIn the event this information is protected by the Federal Confidentiality of Alcohol and Drug Abuse Patient Records regulations: The Federal rules restrict any use of the information to criminally investigate or prosecute any alcohol or drug abuse patient.[facility] RehabilitationIn the event this information is protected by the Federal Confidentiality of Alcohol and Drug Abuse Patient Records regulations: The Federal rules restrict any use of the information to criminally investigate or prosecute any alcohol or drug abuse patient.[facility] RehabilitationIn the event this information is protected by the Federal Confidentiality of Alcohol and Drug Abuse Patient Records regulations: The Federal rules restrict any use of the information to criminally investigate or prosecute any alcohol or drug abuse patient.[facility] RehabilitationIn the event this information is protected by the Federal Confidentiality of Alcohol and Drug Abuse Patient Records regulations: The Federal rules restrict any use of the information to criminally investigate or prosecute any alcohol or drug abuse patient.[facility] RehabilitationIn the event this information is protected by the Federal Confidentiality of Alcohol and Drug Abuse Patient Records regulations: The Federal rules restrict any use of the information to criminally investigate or prosecute any alcohol or drug abuse patient.[facility] RehabilitationIn the event this information is protected by the Federal Confidentiality of Alcohol and Drug Abuse Patient Records regulations: The Federal rules restrict any use of the information to criminally investigate or prosecute any alcohol or drug abuse patient.[facility] RehabilitationIn the event this information is protected by the Federal Confidentiality of Alcohol and Drug Abuse Patient Records regulations: The Federal rules restrict any use of the information to criminally investigate or prosecute any alcohol or drug abuse patient.[facility] RehabilitationIn the event this information is protected by the Federal Confidentiality of Alcohol and Drug Abuse Patient Records regulations: The Federal rules restrict any use of the information to criminally investigate or prosecute any alcohol or drug abuse patient.[facility] RehabilitationIn the event this information is protected by the Federal Confidentiality of Alcohol and Drug Abuse Patient Records regulations: The Federal rules restrict any use of the information to criminally investigate or prosecute any alcohol or drug abuse patient.[facility] RehabilitationIn the event this information is protected by the Federal Confidentiality of Alcohol and Drug Abuse Patient Records regulations: The Federal rules restrict any use of the information to criminally investigate or prosecute any alcohol or drug abuse patient.[facility] RehabilitationIn the event this information is protected by the Federal Confidentiality of Alcohol and Drug Abuse Patient Records regulations: The Federal rules restrict any use of the information to criminally investigate or prosecute any alcohol or drug abuse patient.[facility] RehabilitationIn the event this information is protected by the Federal Confidentiality of Alcohol and Drug Abuse Patient Records regulations: The Federal rules restrict any use of the information to criminally investigate or prosecute any alcohol or drug abuse patient.[facility] RehabilitationIn the event this information is protected by the Federal Confidentiality of Alcohol and Drug Abuse Patient Records regulations: The Federal rules restrict any use of the information to criminally investigate or prosecute any alcohol or drug abuse patient.[facility] RehabilitationIn the event this information is protected by the Federal Confidentiality of Alcohol and Drug Abuse Patient Records regulations: The Federal rules restrict any use of the information to criminally investigate or prosecute any alcohol or drug abuse patient.[facility] RehabilitationIn the event this information is protected by the Federal Confidentiality of Alcohol and Drug Abuse Patient Records regulations: The Federal rules restrict any use of the information to criminally investigate or prosecute any alcohol or drug abuse patient.[facility] RehabilitationIn the event this information is protected by the Federal Confidentiality of Alcohol and Drug Abuse Patient Records regulations: The Federal rules restrict any use of the information to criminally investigate or prosecute any alcohol or drug abuse patient.[facility] RehabilitationIn the event this information is protected by the Federal Confidentiality of Alcohol and Drug Abuse Patient Records regulations: The Federal rules restrict any use of the information to criminally investigate or prosecute any alcohol or drug abuse patient.[facility] RehabilitationIn the event this information is protected by the Federal Confidentiality of Alcohol and Drug Abuse Patient Records regulations: The Federal rules restrict any use of the information to criminally investigate or prosecute any alcohol or drug abuse patient.[facility] RehabilitationIn the event this information is protected by the Federal Confidentiality of Alcohol and Drug Abuse Patient Records regulations: The Federal rules restrict any use of the information to criminally investigate or prosecute any alcohol or drug abuse patient.[facility] RehabilitationIn the event this information is protected by the Federal Confidentiality of Alcohol and Drug Abuse Patient Records regulations: The Federal rules restrict any use of the information to criminally investigate or prosecute any alcohol or drug abuse patient.[facility] RehabilitationIn the event this information is protected by the Federal Confidentiality of Alcohol and Drug Abuse Patient Records regulations: The Federal rules restrict any use of the information to criminally investigate or prosecute any alcohol or drug abuse patient.[facility] RehabilitationIn the event this information is protected by the Federal Confidentiality of Alcohol and Drug Abuse Patient Records regulations: The Federal rules restrict any use of the information to criminally investigate or prosecute any alcohol or drug abuse patient.[facility] RehabilitationIn the event this information is protected by the Federal Confidentiality of Alcohol and Drug Abuse Patient Records regulations: The Federal rules restrict any use of the information to criminally investigate or prosecute any alcohol or drug abuse patient.[facility] RehabilitationIn the event this information is protected by the Federal Confidentiality of Alcohol and Drug Abuse Patient Records regulations: The Federal rules restrict any use of the information to criminally investigate or prosecute any alcohol or drug abuse patient.[facility] RehabilitationIn the event this information is protected by the Federal Confidentiality of Alcohol and Drug Abuse Patient Records regulations: The Federal rules restrict any use of the information to criminally investigate or prosecute any alcohol or drug abuse patient.[facility] RehabilitationIn the event this information is protected by the Federal Confidentiality of Alcohol and Drug Abuse Patient Records regulations: The Federal rules restrict any use of the information to criminally investigate or prosecute any alcohol or drug abuse patient.[facility] RehabilitationIn the event this information is protected by the Federal Confidentiality of Alcohol and Drug Abuse Patient Records regulations: The Federal rules restrict any use of the information to criminally investigate or prosecute any alcohol or drug abuse patient.[facility] RehabilitationIn the event this information is protected by the Federal Confidentiality of Alcohol and Drug Abuse Patient Records regulations: The Federal rules restrict any use of the information to criminally investigate or prosecute any alcohol or drug abuse patient.[facility] RehabilitationIn the event this information is protected by the Federal Confidentiality of Alcohol and Drug Abuse Patient Records regulations: The Federal rules restrict any use of the information to criminally investigate or prosecute any alcohol or drug abuse patient.[facility] RehabilitationIn the event this information is protected by the Federal Confidentiality of Alcohol and Drug Abuse Patient Records regulations: The Federal rules restrict any use of the information to criminally investigate or prosecute any alcohol or drug abuse patient.[facility] RehabilitationIn the event this information is protected by the Federal Confidentiality of Alcohol and Drug Abuse Patient Records regulations: The Federal rules restrict any use of the information to criminally investigate or prosecute any alcohol or drug abuse patient.[facility] RehabilitationIn the event this information is protected by the Federal Confidentiality of Alcohol and Drug Abuse Patient Records regulations: The Federal rules restrict any use of the information to criminally investigate or prosecute any alcohol or drug abuse patient.[facility] RehabilitationIn the event this information is protected by the Federal Confidentiality of Alcohol and Drug Abuse Patient Records regulations: The Federal rules restrict any use of the information to criminally investigate or prosecute any alcohol or drug abuse patient.[facility] RehabilitationIn the event this information is protected by the Federal Confidentiality of Alcohol and Drug Abuse Patient Records regulations: The Federal rules restrict any use of the information to criminally investigate or prosecute any alcohol or drug abuse patient.[facility] the event this information is protected by the Federal Confidentiality of Alcohol and Drug Abuse Patient Records regulations: The Federal rules restrict any use of the information to criminally investigate or prosecute any alcohol or drug abuse patient.[facility] RehabilitationIn the event this information is protected by the Federal Confidentiality of Alcohol and Drug Abuse Patient Records regulations: The Federal rules restrict any use of the information to criminally investigate or prosecute any alcohol or drug abuse patient.[facility] RehabilitationIn the event this information is protected by the Federal Confidentiality of Alcohol and Drug Abuse Patient Records regulations: The Federal rules restrict any use of the information to criminally investigate or prosecute any alcohol or drug abuse patient.[facility] RehabilitationIn the event this information is protected by the Federal Confidentiality of Alcohol and Drug Abuse Patient Records regulations: The Federal rules restrict any use of the information to criminally investigate or prosecute any alcohol or drug abuse patient.[facility] RehabilitationIn the event this information is protected by the Federal Confidentiality of Alcohol and Drug Abuse Patient Records regulations: The Federal rules restrict any use of the information to criminally investigate or prosecute any alcohol or drug abuse patient.[facility] RehabilitationIn the event this information is protected by the Federal Confidentiality of Alcohol and Drug Abuse Patient Records regulations: The Federal rules restrict any use of the information to criminally investigate or prosecute any alcohol or drug abuse patient.[facility] RehabilitationIn the event this information is protected by the Federal Confidentiality of Alcohol and Drug Abuse Patient Records regulations: The Federal rules restrict any use of the information to criminally investigate or prosecute any alcohol or drug abuse patient.[facility] RehabilitationIn the event this information is protected by the Federal Confidentiality of Alcohol and Drug Abuse Patient Records regulations: The Federal rules restrict any use of the information to criminally investigate or prosecute any alcohol or drug abuse patient.[facility] RehabilitationIn the event this information is protected by the Federal Confidentiality of Alcohol and Drug Abuse Patient Records regulations: The Federal rules restrict any use of the information to criminally investigate or prosecute any alcohol or drug abuse patient.[facility] RehabilitationIn the event this information is protected by the Federal Confidentiality of Alcohol and Drug Abuse Patient Records regulations: The Federal rules restrict any use of the information to criminally investigate or prosecute any alcohol or drug abuse patient.[facility] RehabilitationIn the event this information is protected by the Federal Confidentiality of Alcohol and Drug Abuse Patient Records regulations: The Federal rules restrict any use of the information to criminally investigate or prosecute any alcohol or drug abuse patient.[facility] RehabilitationIn the event this information is protected by the Federal Confidentiality of Alcohol and Drug Abuse Patient Records regulations: The Federal rules restrict any use of the information to criminally investigate or prosecute any alcohol or drug abuse patient.[facility] RehabilitationIn the event this information is protected by the Federal Confidentiality of Alcohol and Drug Abuse Patient Records regulations: The Federal rules restrict any use of the information to criminally investigate or prosecute any alcohol or drug abuse patient.[facility] RehabilitationIn the event this information is protected by the Federal Confidentiality of Alcohol and Drug Abuse Patient Records regulations: The Federal rules restrict any use of the information to criminally investigate or prosecute any alcohol or drug abuse patient.[facility] RehabilitationIn the event this information is protected by the Federal Confidentiality of Alcohol and Drug Abuse Patient Records regulations: The Federal rules restrict any use of the information to criminally investigate or prosecute any alcohol or drug abuse patient.[facility] RehabilitationIn the event this information is protected by the Federal Confidentiality of Alcohol and Drug Abuse Patient Records regulations: The Federal rules restrict any use of the information to criminally investigate or prosecute any alcohol or drug abuse patient.[facility] RehabilitationIn the event this information is protected by the Federal Confidentiality of Alcohol and Drug Abuse Patient Records regulations: The Federal rules restrict any use of the information to criminally investigate or prosecute any alcohol or drug abuse patient.[facility] RehabilitationIn the event this information is protected by the Federal Confidentiality of Alcohol and Drug Abuse Patient Records regulations: The Federal rules restrict any use of the information to criminally investigate or prosecute any alcohol or drug abuse patient.[facility] RehabilitationIn the event this information is protected by the Federal Confidentiality of Alcohol and Drug Abuse Patient Records regulations: The Federal rules restrict any use of the information to criminally investigate or prosecute any alcohol or drug abuse patient.[facility] RehabilitationIn the event this information is protected by the Federal Confidentiality of Alcohol and Drug Abuse Patient Records regulations: The Federal rules restrict any use of the information to criminally investigate or prosecute any alcohol or drug abuse patient.[facility] RehabilitationIn the event this information is protected by the Federal Confidentiality of Alcohol and Drug Abuse Patient Records regulations: The Federal rules restrict any use of the information to criminally investigate or prosecute any alcohol or drug abuse patient.[facility] RehabilitationIn the event this information is protected by the Federal Confidentiality of Alcohol and Drug Abuse Patient Records regulations: The Federal rules restrict any use of the information to criminally investigate or prosecute any alcohol or drug abuse patient.[facility] RehabilitationIn the event this information is protected by the Federal Confidentiality of Alcohol and Drug Abuse Patient Records regulations: The Federal rules restrict any use of the information to criminally investigate or prosecute any alcohol or drug abuse patient.[facility] RehabilitationIn the event this information is protected by the Federal Confidentiality of Alcohol and Drug Abuse Patient Records regulations: The Federal rules restrict any use of the information to criminally investigate or prosecute any alcohol or drug abuse patient.[facility] RehabilitationIn the event this information is protected by the Federal Confidentiality of Alcohol and Drug Abuse Patient Records regulations: The Federal rules restrict any use of the information to criminally investigate or prosecute any alcohol or drug abuse patient.[facility] RehabilitationIn the event this information is protected by the Federal Confidentiality of Alcohol and Drug Abuse Patient Records regulations: The Federal rules restrict any use of the information to criminally investigate or prosecute any alcohol or drug abuse patient.[facility] RehabilitationIn the event this information is protected by the Federal Confidentiality of Alcohol and Drug Abuse Patient Records regulations: The Federal rules restrict any use of the information to criminally investigate or prosecute any alcohol or drug abuse patient.[facility] RehabilitationIn the event this information is protected by the Federal Confidentiality of Alcohol and Drug Abuse Patient Records regulations: The Federal rules restrict any use of the information to criminally investigate or prosecute any alcohol or drug abuse patient.[facility] RehabilitationIn the event this information is protected by the Federal Confidentiality of Alcohol and Drug Abuse Patient Records regulations: The Federal rules restrict any use of the information to criminally investigate or prosecute any alcohol or drug abuse patient.[facility] RehabilitationIn the event this information is protected by the Federal Confidentiality of Alcohol and Drug Abuse Patient Records regulations: The Federal rules restrict any use of the information to criminally investigate or prosecute any alcohol or drug abuse patient.[facility] RehabilitationIn the event this information is protected by the Federal Confidentiality of Alcohol and Drug Abuse Patient Records regulations: The Federal rules restrict any use of the information to criminally investigate or prosecute any alcohol or drug abuse patient.[facility] RehabilitationIn the event this information is protected by the Federal Confidentiality of Alcohol and Drug Abuse Patient Records regulations: The Federal rules restrict any use of the information to criminally investigate or prosecute any alcohol or drug abuse patient.[facility] RehabilitationIn the event this information is protected by the Federal Confidentiality of Alcohol and Drug Abuse Patient Records regulations: The Federal rules restrict any use of the information to criminally investigate or prosecute any alcohol or drug abuse patient.[facility] RehabilitationIn the event this information is protected by the Federal Confidentiality of Alcohol and Drug Abuse Patient Records regulations: The Federal rules restrict any use of the information to criminally investigate or prosecute any alcohol or drug abuse patient.[facility] RehabilitationIn the event this information is protected by the Federal Confidentiality of Alcohol and Drug Abuse Patient Records regulations: The Federal rules restrict any use of the information to criminally investigate or prosecute any alcohol or drug abuse patient.[facility] RehabilitationIn the event this information is protected by the Federal Confidentiality of Alcohol and Drug Abuse Patient Records regulations: The Federal rules restrict any use of the information to criminally investigate or prosecute any alcohol or drug abuse patient.[facility] RehabilitationIn the event this information is protected by the Federal Confidentiality of Alcohol and Drug Abuse Patient Records regulations: The Federal rules restrict any use of the information to criminally investigate or prosecute any alcohol or drug abuse patient.[facility] RehabilitationIn the event this information is protected by the Federal Confidentiality of Alcohol and Drug Abuse Patient Records regulations: The Federal rules restrict any use of the information to criminally investigate or prosecute any alcohol or drug abuse patient.[facility] RehabilitationIn the event this information is protected by the Federal Confidentiality of Alcohol and Drug Abuse Patient Records regulations: The Federal rules restrict any use of the information to criminally investigate or prosecute any alcohol or drug abuse patient.[facility] RehabilitationIn the event this information is protected by the Federal Confidentiality of Alcohol and Drug Abuse Patient Records regulations: The Federal rules restrict any use of the information to criminally investigate or prosecute any alcohol or drug abuse patient.[facility] RehabilitationIn the event this information is protected by the Federal Confidentiality of Alcohol and Drug Abuse Patient Records regulations: The Federal rules restrict any use of the information to criminally investigate or prosecute any alcohol or drug abuse patient.[facility] RehabilitationIn the event this information is protected by the Federal Confidentiality of Alcohol and Drug Abuse Patient Records regulations: The Federal rules restrict any use of the information to criminally investigate or prosecute any alcohol or drug abuse patient.[facility] RehabilitationIn the event this information is protected by the Federal Confidentiality of Alcohol and Drug Abuse Patient Records regulations: The Federal rules restrict any use of the information to criminally investigate or prosecute any alcohol or drug abuse patient.[facility] RehabilitationIn the event this information is protected by the Federal Confidentiality of Alcohol and Drug Abuse Patient Records regulations: The Federal rules restrict any use of the information to criminally investigate or prosecute any alcohol or drug abuse patient.[facility] RehabilitationIn the event this information is protected by the Federal Confidentiality of Alcohol and Drug Abuse Patient Records regulations: The Federal rules restrict any use of the information to criminally investigate or prosecute any alcohol or drug abuse patient.[facility] RehabilitationIn the event this information is protected by the Federal Confidentiality of Alcohol and Drug Abuse Patient Records regulations: The Federal rules restrict any use of the information to criminally investigate or prosecute any alcohol or drug abuse patient.[facility] RehabilitationIn the event this information is protected by the Federal Confidentiality of Alcohol and Drug Abuse Patient Records regulations: The Federal rules restrict any use of the information to criminally investigate or prosecute any alcohol or drug abuse patient.[facility] RehabilitationIn the event this information is protected by the Federal Confidentiality of Alcohol and Drug Abuse Patient Records regulations: The Federal rules restrict any use of the information to criminally investigate or prosecute any alcohol or drug abuse patient.[facility] RehabilitationIn the event this information is protected by the Federal Confidentiality of Alcohol and Drug Abuse Patient Records regulations: The Federal rules restrict any use of the information to criminally investigate or prosecute any alcohol or drug abuse patient.[facility] RehabilitationIn the event this information is protected by the Federal Confidentiality of Alcohol and Drug Abuse Patient Records regulations: The Federal rules restrict any use of the information to criminally investigate or prosecute any alcohol or drug abuse patient.[facility] the event this information is protected by the Federal Confidentiality of Alcohol and Drug Abuse Patient Records regulations: The Federal rules restrict any use of the information to criminally investigate or prosecute any alcohol or drug abuse patient.[facility] RehabilitationIn the event this information is protected by the Federal Confidentiality of Alcohol and Drug Abuse Patient Records regulations: The Federal rules restrict any use of the information to criminally investigate or prosecute any alcohol or drug abuse patient.[facility] RehabilitationIn the event this information is protected by the Federal Confidentiality of Alcohol and Drug Abuse Patient Records regulations: The Federal rules restrict any use of the information to criminally investigate or prosecute any alcohol or drug abuse patient.[facility] RehabilitationIn the event this information is protected by the Federal Confidentiality of Alcohol and Drug Abuse Patient Records regulations: The Federal rules restrict any use of the information to criminally investigate or prosecute any alcohol or drug abuse patient.[facility] RehabilitationIn the event this information is protected by the Federal Confidentiality of Alcohol and Drug Abuse Patient Records regulations: The Federal rules restrict any use of the information to criminally investigate or prosecute any alcohol or drug abuse patient.[facility] RehabilitationIn the event this information is protected by the Federal Confidentiality of Alcohol and Drug Abuse Patient Records regulations: The Federal rules restrict any use of the information to criminally investigate or prosecute any alcohol or drug abuse patient.[facility] RehabilitationIn the event this information is protected by the Federal Confidentiality of Alcohol and Drug Abuse Patient Records regulations: The Federal rules restrict any use of the information to criminally investigate or prosecute any alcohol or drug abuse patient.[facility] RehabilitationIn the event this information is protected by the Federal Confidentiality of Alcohol and Drug Abuse Patient Records regulations: The Federal rules restrict any use of the information to criminally investigate or prosecute any alcohol or drug abuse patient.[facility] RehabilitationIn the event this information is protected by the Federal Confidentiality of Alcohol and Drug Abuse Patient Records regulations: The Federal rules restrict any use of the information to criminally investigate or prosecute any alcohol or drug abuse patient.[facility] RehabilitationIn the event this information is protected by the Federal Confidentiality of Alcohol and Drug Abuse Patient Records regulations: The Federal rules restrict any use of the information to criminally investigate or prosecute any alcohol or drug abuse patient.[facility] RehabilitationIn the event this information is protected by the Federal Confidentiality of Alcohol and Drug Abuse Patient Records regulations: The Federal rules restrict any use of the information to criminally investigate or prosecute any alcohol or drug abuse patient.[facility] RehabilitationIn the event this information is protected by the Federal Confidentiality of Alcohol and Drug Abuse Patient Records regulations: The Federal rules restrict any use of the information to criminally investigate or prosecute any alcohol or drug abuse patient.[facility] RehabilitationIn the event this information is protected by the Federal Confidentiality of Alcohol and Drug Abuse Patient Records regulations: The Federal rules restrict any use of the information to criminally investigate or prosecute any alcohol or drug abuse patient.[facility] Reason for Visit (unrecogniz ed section and [...] HNI PATIENT Flash Pearl MD [address] [place] [address] [place] [address] [place] [address] Referral ID Status Reason Start Date Expiration Date Visits Re quested Visits Authorized [id number] Closed 07/09/2021 07/27/2021 99 99 Specialty Diagnoses [...] NON-ESRD USE (RETACRIT) Asher Hummel MD [address] [address] Sam Treat [address] [place] [address] Referral ID Status Reason Start Date Expiration Date V Twingly Requested Visits Authorized [id number] Authorized 08/06/2021 02/01/2022 37 37 Reason Comments myeldysplastic syndrome followup Specialty Diagnoses / Procedures Referred By Contac t Referred To Contact Diagnoses Myelodysplastic syndrome (HCC) Procedures AZACITIDINE INJECTION PALONOSETRON HCL Asher Hummel MD [address] [place] [address] Sam Treat [address] [place] [address] Referral ID Status Reason Start Date Expiration Date V isits Requested Visits Authorized [id number] Authorized 06/28/2021 07/27/2022 99 99 Reason Comments [...] Status Reason Start Date Expiration Date V Yabbedoots Requested Visits Authorized [id number] Waiting for Response 08/06/2021 02/01/2022 37 37 Reason Comments Transfusion Reason Comments Care Coordination Results Reason Comments Care Coordination Lab results Referral ID Status Reason Start Date Expiration Date V Yabbedoots Requested Visits Authorized [id number] Authorized 02/25/2022 04/25/2022 42 42 Reason Comments Results Reason Comments Care Coordination Referral Reason Comments Care Coordination Appointment Reason Comments Results CBC Reason Comments Patient Update Reason Comments Consult Specialty Diagnoses / Procedures Referred By Contac t Referred To Contact Diagnoses Myelodysplastic syndrome (HCC) Procedures CONSULT TO HEMATOLOGY/ONCOLOGY OFFICE/OUTPATIENT [facility] MDM 60-74 MINUTES Asher Hummel MD [address] [place] [address] Referral ID Status Reason Start Date Expiration Date V isits Requested Visits Authorized [id number] Closed PCP Requested Referral 03/15/2022 03/15/2023 1 [...] NON-ESRD USE (RETACRIT) Asher Hummel MD [address] [place] [address] Sam Treat [facility] [address] [place] [address] Referral ID Status Reason Start Date Expiration Date V isits Requested Visits Authorized [id number] Authorized 04/29/2022 06/27/2022 99 99 Reason Comments Myelodysplastic Syndrome 1 week follow u p Reason Comments Care Coordination Treatment Planning Reason Comments Care Coordination Antiemetics Reason Comments Care Coordination C1D1 Post Treatment Call Reason Comments MDS Follow up Reason Comments Prostate Cancer Followup Referral ID Status Reason Start Date Expiration Date V isits Requested Visits Authorized [id number] Authorized 04/29/2022 06/27/2022 15 15 Reason Comments Critical Results Referral ID Status Reason Start Date Expiration Date V isits Requested Visits Authorized [id number] Authorized 04/29/2022 06/27/2022 19 19 Reason Comments MDS 1 week follow up Referral ID Status Reason Start Date Expiration Date V isits Requested Visits Authorized [id number] Authorized 04/29/2022 12/24/2022 45 45 Reason Comments Care Coordination Oxygen Question Reason Comments Established Patient Reason Comments Retacrit Injection Reason Comments MDS OTV 1 week Reason Comments Care Coordination Order Request Reason Comments Care Coordination Transfusion Question Reason Comments Treatment Planning Reason Comments Care Coordination Medication Authoriza tion Referral ID Status Reason Start Date Expiration Date Visits Re quested Visits Authorized [id number] Closed 04/29/2022 12/24/2022 45 45 Reason Comments mds Treatment visit Reason Comments Care Coordination CBC Results; Transfu bravo Reason Comments Care Coordination Transfusion Orders Reason Comments Care Coordination Pt Update Reason Comments Care Coordination Hospice/Treatment Up date Reason Comments MDS (myelodysplastic syndrome) 3 week fo llow up Reason Comments Refill Request Care Teams (unrecognized sec tion and content) Central Office Trouble Shooter Relationship Specialty Start Date End Date Flash Pearl MD [address] [place] [address] PCP - General 11/12/00 Sheng Gomez MD [address] [place] [address] Ditch Repairer Cardiology 09/20/20 Asher Hummel MD [address] [address] Physician Hematology/Oncology 06/29/21 Wilfred Martinez APRN.DERRICK HELPER [address] [address] Nurse Practitioner Hematology/Oncology 06/29/21 Angle Kamara, MONET [address] [place] [address] Specialty Rn Post Partum Hematology/Oncology 06/29/21 Central Office Trouble Shooter Relationship Specialty Start Date End Date Flash Pearl MD [address] [place] [address] PCP - General 11/12/00 Sheng Gomez MD [address] [place] [address] Ditch Repairer Cardiology 09/20/20 Asher Hummel MD [address] [place] [address] Physician Hematology/Oncology 06/29/21 Wilfred Martinez, UX VISUAL DESIGNER.DERRICK HELPER [address] [address] Nurse Practitioner Hematology/Oncology 06/29/21 Angle Kamara, MONET [address] [place] [address] Specialty Rn Post Partum Hematology/Oncology 06/29/21 Central Office Trouble Shooter Relationship Specialty Start Date End Date Flash Pearl MD [address] [place] [address] PCP - General 11/12/00 Sheng Gomez MD [address] [place] [address] Ditch Repairer Cardiology 09/20/20 Asher Hummel MD [address] [place] [address] Physician Hematology/Oncology 06/29/21 Wilfred Martinez, UX VISUAL DESIGNER.DERRICK HELPER [address] [place] [address] Nurse Practitioner Hematology/Oncology 06/29/21 Angle Kamara, RN [address] [address] Specialty Rn Post Partum Hematology/Oncology 06/29/21 Central Office Trouble Shooter Relationship Specialty Start Date End Date Flash Pearl MD [address] [place] [address] PCP - General 11/12/00 Sheng Gomez MD [address] [place] [address] Ditch Repairer Cardiology 09/20/20 Asher Hummel MD [address] [address] Physician Hematology/Oncology 06/29/21 Wilfred Martinez, UX VISUAL DESIGNER.DERRICK HELPER [address] [place] [address] Nurse Practitioner Hematology/Oncology 06/29/21 Angle Kamara, RN [address] [place] [address] Specialty Rn Post Partum Hematology/Oncology 06/29/21 Central Office Trouble Shooter Relationship Specialty Start Date End Date Flash Pearl MD [address] [place] [address] PCP - General 11/12/00 Sheng Gomez MD [address] [place] [address] Ditch Repairer Cardiology 09/20/20 Asher Hummel MD [address] [place] [address] Physician Hematology/Oncology 06/29/21 Wilfred Martinez, UX VISUAL DESIGNER.DERRICK HELPER [address] [place] [address] Nurse Practitioner Hematology/Oncology 06/29/21 Angle Kamara, RN [address] [place] [address] Specialty Rn Post Partum Hematology/Oncology 06/29/21 Central Office Trouble Shooter Relationship Specialty Start Date End Date Flash Pearl MD [address] [place] [address] PCP - General 11/12/00 Sheng Gomez MD [address] [place] [address] Ditch Repairer Cardiology 09/20/20 Asher Hummel MD [address] [place] [address] Physician Hematology/Oncology 06/29/21 Wilfred Martinez, UX VISUAL DESIGNER.DERRICK HELPER [address] [place] [address] Nurse Practitioner Hematology/Oncology 06/29/21 Angle Kamara, MONET [address] [place] [address] Specialty Rn Post Partum Hematology/Oncology 06/29/21 Central Office Trouble Shooter Relationship Specialty Start Date End Date Flash Pearl MD [address] [place] [address] PCP - General 11/12/00 Sheng Gomez MD [address] [place] [address] Ditch Repairer Cardiology 09/20/20 Asher Hummel MD [address] [place] [address] Physician Hematology/Oncology 06/29/21 Wilfred Martinez, UX VISUAL DESIGNER.DERRICK HELPER [address] [place] [address] Nurse Practitioner Hematology/Oncology 06/29/21 Angle Kamara, MONET [address] [place] [address] Specialty Rn Post Partum Hematology/Oncology 06/29/21 Central Office Trouble Shooter Relationship Specialty Start Date End Date Flash Pearl MD [address] [place] [address] PCP - General 11/12/00 Sheng Gomez MD [address] [place] [address] Ditch Repairer Cardiology 09/20/20 Asher Hummel MD [address] [place] [address] Physician Hematology/Oncology 06/29/21 Wilfred Martinez, UX VISUAL DESIGNER.DERRICK HELPER [address] [place] [address] Nurse Practitioner Hematology/Oncology 06/29/21 Angle Kamara, RN [address] [place] [address] Specialty Rn Post Partum Hematology/Oncology 06/29/21 Central Office Trouble Shooter Relationship Specialty Start Date End Date Flash Pearl MD [address] [place] [address] PCP - General 11/12/00 Sheng Gomez MD [address] [place] [address] Ditch Repairer Cardiology 09/20/20 Asher Hummel MD [address] [place] [address] Physician Hematology/Oncology 06/29/21 Wilfred Martinez, UX VISUAL DESIGNER.DERRICK HELPER [address] [place] [address] Nurse Practitioner Hematology/Oncology 06/29/21 Angle Kamara, MONET [address] [place] [address] Specialty Rn Post Partum Hematology/Oncology 06/29/21 Central Office Trouble Shooter Relationship Specialty Start Date End Date Flash Pearl MD [address] [place] [address] PCP - General 11/12/00 Sheng Gomez MD [address] [place] [address] Ditch Repairer Cardiology 09/20/20 Asher Hummel MD [address] [place] [address] Physician Hematology/Oncology 06/29/21 Wilfred Martinez, UX VISUAL DESIGNER.DERRICK HELPER [address] [place] [address] Nurse Practitioner Hematology/Oncology 06/29/21 Angle Kamara, MONET [address] [place] [address] Specialty Rn Post Partum Hematology/Oncology 06/29/21 Central Office Trouble Shooter Relationship Specialty Start Date End Date Flash Pearl MD [address] [place] [address] PCP - General 11/12/00 Sheng Gomez MD [address] [place] [address] Ditch Repairer Cardiology 09/20/20 Asher Hummel MD [address] [place] [address] Physician Hematology/Oncology 06/29/21 Wilfred Martinez, UX VISUAL DESIGNER.DERRICK HELPER [address] [place] [address] Nurse Practitioner Hematology/Oncology 06/29/21 Angle Kamara, MONET [address] [place] [address] Specialty Rn Post Partum Hematology/Oncology 06/29/21 Central Office Trouble Shooter Relationship Specialty Start Date End Date Flash Pearl MD [address] [place] [address] PCP - General 11/12/00 Sheng Gomez MD [address] [place] [address] Ditch Repairer Cardiology 09/20/20 Asher Hummel MD [address] [place] [address] Physician Hematology/Oncology 06/29/21 Wilfred Martinez, JIGAR.DERRICK HELPER [address] [place] [address] Nurse Practitioner Hematology/Oncology 06/29/21 Angle Kamara, RN [address] [place] [address] Specialty Rn Post Partum Hematology/Oncology 06/29/21 Central Office Trouble Shooter Relationship Specialty Start Date End Date Flash Pearl MD [address] [place] [address] PCP - General 11/12/00 Sheng Gomez MD [address] [place] [address] Ditch Repairer Cardiology 09/20/20 Asher Hummel MD [address] [facility] [address] Physician Hematology/Oncology 06/29/21 Wilfred Martinez, UX VISUAL DESIGNER.DERRICK HELPER [address] [place] [address] Nurse Practitioner Hematology/Oncology 06/29/21 Angle Kamara, MONET [address] [place] [address] Specialty Rn Post Partum Hematology/Oncology 06/29/21 Central Office Trouble Shooter Relationship Specialty Start Date End Date Flash Pearl MD [address] [place] [address] PCP - General 11/12/00 hSeng Gomez MD [address] [place] [address] Ditch Repairer Cardiology 09/20/20 Asher Hummel MD [address] [place] [address] Physician Hematology/Oncology 06/29/21 Wilfred Martinez, UX VISUAL DESIGNER.DERRICK HELPER [address] [place] [address] Nurse Practitioner Hematology/Oncology 06/29/21 Angle Kamara, MONET [address] [place] [address] Specialty Rn Post Partum Hematology/Oncology 06/29/21 Central Office Trouble Shooter Relationship Specialty Start Date End Date Flash Pearl MD [address] [place] [address] PCP - General 11/12/00 Sheng Gomez MD [address] [place] [address] Ditch Repairer Cardiology 09/20/20 Asher Hummel MD [address] [place] [address] Physician Hematology/Oncology 06/29/21 Wilfred Martinez, UX VISUAL DESIGNER.DERRICK HELPER [address] [place] [address] Nurse Practitioner Hematology/Oncology 06/29/21 Angle Kamara, MONET [address] [place] [address] Specialty Rn Post Partum Hematology/Oncology 06/29/21 Central Office Trouble Shooter Relationship Specialty Start Date End Date Flash Pearl MD [address] [place] [address] PCP - General 11/12/00 Sheng Gomez MD [address] [place] [address] Ditch Repairer Cardiology 09/20/20 Asher Hummel MD [address] [place] [address] Physician Hematology/Oncology 06/29/21 Wilfred Martinez, UX VISUAL DESIGNER.DERRICK HELPER [address] [place] [address] Nurse Practitioner Hematology/Oncology 06/29/21 Angle Kamara, RN [address] [place] [address] Specialty Rn Post Partum Hematology/Oncology 06/29/21 Central Office Trouble Shooter Relationship Specialty Start Date End Date Flash Pearl MD [address] [place] [address] PCP - General 11/12/00 Sheng Gomez MD [address] [place] [address] Ditch Repairer Cardiology 09/20/20 Asher Hummel MD [address] [place] [address] Physician Hematology/Oncology 06/29/21 Wilfred Martinez, UX VISUAL DESIGNER.DERRICK HELPER [address] [place] [address] Nurse Practitioner Hematology/Oncology 06/29/21 Angle Kamara, RN [address] [place] [address] Specialty Rn Post Partum Hematology/Oncology 06/29/21 Central Office Trouble Shooter Relationship Specialty Start Date End Date Flash Pearl MD [address] [place] [address] PCP - General 11/12/00 Sheng Gomez MD [address] [place] [address] Ditch Repairer Cardiology 09/20/20 Asher Hummel MD [address] [place] [address] Physician Hematology/Oncology 06/29/21 Wilferd Martinez, UX VISUAL DESIGNER.DERRICK HELPER [address] [place] [address] Nurse Practitioner Hematology/Oncology 06/29/21 Angle Kamara, MONET [address] [place] [address] Specialty Rn Post Partum Hematology/Oncology 06/29/21 Central Office Trouble Shooter Relationship Specialty Start Date End Date Flash Pearl MD [address] [place] [address] PCP - General 11/12/00 Sheng Gomez MD [address] [place] [address] Ditch Repairer Cardiology 09/20/20 Asher Hummel MD [address] [place] [address] Physician Hematology/Oncology 06/29/21 Wilfred Martinez, UX VISUAL DESIGNER.DERRICK HELPER [address] [place] [address] Nurse Practitioner Hematology/Oncology 06/29/21 Angle Kamara, MONET [address] [place] [address] Specialty Rn Post Partum Hematology/Oncology 06/29/21 Central Office Trouble Shooter Relationship Specialty Start Date End Date Flash Pealr MD [address] [place] [address] PCP - General 11/12/00 Sheng Gomez MD [address] [place] [address] Ditch Repairer Cardiology 09/20/20 Asher Hummel MD [address] [address] Physician Hematology/Oncology 06/29/21 Wilfred Martinez, UX VISUAL DESIGNER.DERRICK HELPER [address] [place] [address] Nurse Practitioner Hematology/Oncology 06/29/21 Angle Kamara, RN [address] [address] Specialty Rn Post Partum Hematology/Oncology 06/29/21 Central Office Trouble Shooter Relationship Specialty Start Date End Date Flash Pearl MD [address] [place] [address] PCP - General 11/12/00 Sheng Gomez MD [address] [place] [address] Ditch Repairer Cardiology 09/20/20 Asher Hummel MD [address] [place] [address] Physician Hematology/Oncology 06/29/21 Wilfred Martinez, UX VISUAL DESIGNER.DERRICK HELPER [address] [place] [address] Nurse Practitioner Hematology/Oncology 06/29/21 Angle Kamara, MONET [address] [place] [address] Specialty Rn Post Partum Hematology/Oncology 06/29/21 Central Office Trouble Shooter Relationship Specialty Start Date End Date Flash Pearl MD [address] [place] [address] PCP - General 11/12/00 Sheng Gomez MD [address] [place] [address] Ditch Repairer Cardiology 09/20/20 Asher Hummel MD [address] [place] [address] Physician Hematology/Oncology 06/29/21 Wilfred Martinez, UX VISUAL DESIGNER.DERRICK HELPER [address] [place] [address] Nurse Practitioner Hematology/Oncology 06/29/21 Angle Kamara, RN [address] [place] [address] Specialty Rn Post Partum Hematology/Oncology 06/29/21 Central Office Trouble Shooter Relationship Specialty Start Date End Date Flash Pearl MD [address] [place] [address] PCP - General 11/12/00 Sheng Gomez MD [address] [place] [address] Ditch Repairer Cardiology 09/20/20 Asher Hummel MD [address] [facility] [place] [address] Physician Hematology/Oncology 06/29/21 Wilfred Martinez, UX VISUAL DESIGNER.DERRICK HELPER [address] [place] [address] Nurse Practitioner Hematology/Oncology 06/29/21 Angle Kamara, MONET [address] [place] [address] Specialty Rn Post Partum Hematology/Oncology 06/29/21 Central Office Trouble Shooter Relationship Specialty Start Date End Date Flash Pearl MD [address] [place] [address] PCP - General 11/12/00 Sheng Gomez MD [address] [place] [address] Ditch Repairer Cardiology 09/20/20 Asher Hummel MD [address] [facility] [place] [address] Physician Hematology/Oncology 06/29/21 Wilfred Martinez, UX VISUAL DESIGNER.DERRICK HELPER [address] [place] [address] Nurse Practitioner Hematology/Oncology 06/29/21 Angle Kamara, MONET [address] [place] [address] Specialty Rn Post Partum Hematology/Oncology 06/29/21 Central Office Trouble Shooter Relationship Specialty Start Date End Date Flash Pearl MD [address] [place] [address] PCP - General 11/12/00 Sheng Gomez MD [address] [place] [address] Ditch Repairer Cardiology 09/20/20 Asher Hummel MD [address] [place] [address] Physician Hematology/Oncology 06/29/21 Wilfred Martinez, UX VISUAL DESIGNER.DERRICK HELPER [address] [place] [address] Nurse Practitioner Hematology/Oncology 06/29/21 Angle Kamara RN [address] [place] [address] Specialty Rn Post Partum Hematology/Oncology 06/29/21 Central Office Trouble Shooter Relationship Specialty Start Date End Date Flash Pearl MD [address] [place] [address] PCP - General 11/12/00 Sheng Gomez MD [address] [place] [address] Ditch Repairer Cardiology 09/20/20 Asher Hummel MD [address] [place] [address] Physician Hematology/Oncology 06/29/21 Wilfred Martinez, UX VISUAL DESIGNER.DERRICK HELPER [address] [place] [address] Nurse Practitioner Hematology/Oncology 06/29/21 Angle Kamara, MONET [address] [address] Specialty Rn Post Partum Hematology/Oncology 06/29/21 Central Office Trouble Shooter Relationship Specialty Start Date End Date Flash Pearl MD [address] [place] [address] PCP - General 11/12/00 Sheng Gomez MD [address] [place] [address] Ditch Repairer Cardiology 09/20/20 Asher Hummel MD [address] [address] Physician Hematology/Oncology 06/29/21 Wilfred Martinez, UX VISUAL DESIGNER.DERRICK HELPER [address] [place] [address] Nurse Practitioner Hematology/Oncology 06/29/21 Angle Kamara, MONET [address] [place] [address] Specialty Rn Post Partum Hematology/Oncology 06/29/21 Central Office Trouble Shooter Relationship Specialty Start Date End Date Flash Pearl MD [address] [place] [address] PCP - General 11/12/00 Sheng Gomez MD [address] [place] [address] Ditch Repairer Cardiology 09/20/20 Asher Hummel MD [address] [address] Physician Hematology/Oncology 06/29/21 Wilfred Martinez, UX VISUAL DESIGNER.DERRICK HELPER [address] [place] [address] Nurse Practitioner Hematology/Oncology 06/29/21 Angle Kamara, MONET [address] [place] [address] Specialty Rn Post Partum Hematology/Oncology 06/29/21 Central Office Trouble Shooter Relationship Specialty Start Date End Date Flash Pearl MD [address] [place] [address] PCP - General 11/12/00 Sheng Gomez MD [address] [place] [address] Ditch Repairer Cardiology 09/20/20 Asher Hummel MD [address] [place] [address] Physician Hematology/Oncology 06/29/21 Wilfred Martinez, UX VISUAL DESIGNER.DERRICK HELPER [address] [place] [address] Nurse Practitioner Hematology/Oncology 06/29/21 Angle Kamara, MONET [address] [place] [address] Specialty Rn Post Partum Hematology/Oncology 06/29/21 Central Office Trouble Shooter Relationship Specialty Start Date End Date Flash Pearl MD [address] [place] [address] PCP - General 11/12/00 Sheng Gomez MD [address] [place] [address] Ditch Repairer Cardiology 09/20/20 Asher Hummel MD [address] [address] Physician Hematology/Oncology 06/29/21 Wilfred Martinez, UX VISUAL DESIGNER.DERRICK HELPER [address] [place] [address] Nurse Practitioner Hematology/Oncology 06/29/21 Angle Kamara, MONET [address] [place] [address] Specialty Rn Post Partum Hematology/Oncology 06/29/21 Central Office Trouble Shooter Relationship Specialty Start Date End Date Flash Pearl MD [address] [place] [address] PCP - General 11/12/00 Sheng Gomez MD [address] [place] [address] Ditch Repairer Cardiology 09/20/20 Asher Hummel MD [address] [address] Physician Hematology/Oncology 06/29/21 Wilfred Martinez, UX VISUAL DESIGNER.DERRICK HELPER [address] [place] [address] Nurse Practitioner Hematology/Oncology 06/29/21 Angle Kamara, MONET [address] [place] [address] Specialty Rn Post Partum Hematology/Oncology 06/29/21 Central Office Trouble Shooter Relationship Specialty Start Date End Date Flash Pearl MD [address] [place] [address] PCP - General 11/12/00 Sheng Gomez MD [address] [place] [address] Ditch Repairer Cardiology 09/20/20 Asher Hummel MD [address] [place], [place] [address] Physician Hematology/Oncology 06/29/21 Wilfred Martinez, UX VISUAL DESIGNER.DERRICK HELPER [address] [place] [address] Nurse Practitioner Hematology/Oncology 06/29/21 Angle Kamara, RN [address] [address] Specialty Rn Post Partum Hematology/Oncology 06/29/21 Central Office Trouble Shooter Relationship Specialty Start Date End Date Flash Pearl MD [address] [place] [address] PCP - General 11/12/00 Sheng Gomez MD [address] [place] [address] Ditch Repairer Cardiology 09/20/20 Asher Hummel MD [address] [place] [address] Physician Hematology/Oncology 06/29/21 Wilfred Martinez, UX VISUAL DESIGNER.DERRICK HELPER [address] [place] [address] Nurse Practitioner Hematology/Oncology 06/29/21 Angle Kamara, RN [address] [place] [address] Specialty Rn Post Partum Hematology/Oncology 06/29/21 Central Office Trouble Shooter Relationship Specialty Start Date End Date Flash Pearl MD [address] [place] [address] PCP - General 11/12/00 Sheng Gomez MD [address] [place] [address] Ditch Repairer Cardiology 09/20/20 Asher Hummel MD [address] [place] [address] Physician Hematology/Oncology 06/29/21 Wilfred Martinez, UX VISUAL DESIGNER.DERRICK HELPER [address] [place] [address] Nurse Practitioner Hematology/Oncology 06/29/21 Angle Kamara, MONET [address] [place] [address] Specialty Rn Post Partum Hematology/Oncology 06/29/21 Central Office Trouble Shooter Relationship Specialty Start Date End Date Flash Pearl MD [address] [place] [address] PCP - General 11/12/00 Sheng Gomez MD [address] [place] [address] Ditch Repairer Cardiology 09/20/20 Asher Hummel MD [address] [place] [address] Physician Hematology/Oncology 06/29/21 Wilfred Martinez, UX VISUAL DESIGNER.DERRICK HELPER [address] [place] [address] Nurse Practitioner Hematology/Oncology 06/29/21 Angle Kamara, RN [address] [place] [address] Specialty Rn Post Partum Hematology/Oncology 06/29/21 Central Office Trouble Shooter Relationship Specialty Start Date End Date Flash Pearl MD [address] [place] [address] PCP - General 11/12/00 Sheng Gomez MD [address] [place] [address] Ditch Repairer Cardiology 09/20/20 Asher Hummel MD [address] [place] [address] Physician Hematology/Oncology 06/29/21 Wilfred Martinez, UX VISUAL DESIGNER.DERRICK HELPER [address] [place] [address] Nurse Practitioner Hematology/Oncology 06/29/21 Angle Kamara, RN [address] [place] [address] Specialty Rn Post Partum Hematology/Oncology 06/29/21 Central Office Trouble Shooter Relationship Specialty Start Date End Date Flash Pearl MD [address] [place] [address] PCP - General 11/12/00 Sheng Gomez MD [address] [place] [address] Ditch Repairer Cardiology 09/20/20 Asher Hummel MD [address] [place] [address] Physician Hematology/Oncology 06/29/21 Wilfred Martinez, UX VISUAL DESIGNER.DERRICK HELPER [address] [place] [address] Nurse Practitioner Hematology/Oncology 06/29/21 Angle Kamara, RN [address] [place] [address] Specialty Rn Post Partum Hematology/Oncology 06/29/21 Central Office Trouble Shooter Relationship Specialty Start Date End Date Flash Pearl MD [address] [place] [address] PCP - General 11/12/00 Sheng Gomez MD [address] [place] [address] Ditch Repairer Cardiology 09/20/20 Asher Hummel MD [address] [place] [address] Physician Hematology/Oncology 06/29/21 Wilfred Martinez, UX VISUAL DESIGNER.DERRICK HELPER [address] [place] [address] Nurse Practitioner Hematology/Oncology 06/29/21 Angle Kamara, MONET [address] [place] [address] Specialty Rn Post Partum Hematology/Oncology 06/29/21 Central Office Trouble Shooter Relationship Specialty Start Date End Date Flash Pearl MD [address] [place] [address] PCP - General 11/12/00 Sheng Gomez MD [address] [place] [address] Ditch Repairer Cardiology 09/20/20 Asehr Hummel MD [address] [place] [address] Physician Hematology/Oncology 06/29/21 Wilfred Martinez, UX VISUAL DESIGNER.DERRICK HELPER [address] [place] [address] Nurse Practitioner Hematology/Oncology 06/29/21 Angle Kamara, MONET [address] [place] [address] Specialty Rn Post Partum Hematology/Oncology 06/29/21 Central Office Trouble Shooter Relationship Specialty Start Date End Date Flash Pearl MD [address] [place] [address] PCP - General 11/12/00 Sheng Gomez MD [address] [place] [address] Ditch Repairer Cardiology 09/20/20 Asher Hummel MD [address] [place] [address] Physician Hematology/Oncology 06/29/21 Wilfred Martinez, UX VISUAL DESIGNER.DERRICK HELPER [address] [address] Nurse Practitioner Hematology/Oncology 06/29/21 Angle Kamara, MONET [address] [place] [address] Specialty Rn Post Partum Hematology/Oncology 06/29/21 Central Office Trouble Shooter Relationship Specialty Start Date End Date Flash Pearl MD [address] [place] [address] PCP - General 11/12/00 Sheng Gomez MD [address] [place] [address] Ditch Repairer Cardiology 09/20/20 Asher Hummel MD [address] [place] [address] Physician Hematology/Oncology 06/29/21 Wilfred Martinez, UX VISUAL DESIGNER.DERRICK HELPER [address] [place] [address] Nurse Practitioner Hematology/Oncology 06/29/21 Angle Kamara, MONET [address] [address] Specialty Rn Post Partum Hematology/Oncology 06/29/21 Central Office Trouble Shooter Relationship Specialty Start Date End Date Flash Pearl MD [address] [place] [address] PCP - General 11/12/00 Sheng Gomez MD [address] [place] [address] Ditch Repairer Cardiology 09/20/20 Asher Hummel MD [address] [address] Physician Hematology/Oncology 06/29/21 Wilfred Martinez, UX VISUAL DESIGNER.DERRICK HELPER [address] [place] [address] Nurse Practitioner Hematology/Oncology 06/29/21 Angle Kamara, MONET [address] [place] [address] Specialty Rn Post Partum Hematology/Oncology 06/29/21 Central Office Trouble Shooter Relationship Specialty Start Date End Date Flash Pearl MD [address] [place] [address] PCP - General 11/12/00 Sheng Gomez MD [address] [place] [address] Ditch Repairer Cardiology 09/20/20 Asher Hummel MD [address] [place] [address] Physician Hematology/Oncology 06/29/21 Wilfred Martinez, UX VISUAL DESIGNER.DERRICK HELPER [address] [place] [address] Nurse Practitioner Hematology/Oncology 06/29/21 Angle Kamara, RN [address] [place] [address] Specialty Rn Post Partum Hematology/Oncology 06/29/21 Central Office Trouble Shooter Relationship Specialty Start Date End Date Flash Pearl MD [address] [place] [address] PCP - General 11/12/00 Sheng Gomez MD [address] [place] [address] Ditch Repairer Cardiology 09/20/20 Asher Hummel MD [address] [place] [address] Physician Hematology/Oncology 06/29/21 Wilfred Martinez, UX VISUAL DESIGNER.DERRICK HELPER [address] [place] [address] Nurse Practitioner Hematology/Oncology 06/29/21 Angle aKmara, RN [address] [place] [address] Specialty Rn Post Partum Hematology/Oncology 06/29/21 Central Office Trouble Shooter Relationship Specialty Start Date End Date Flash Pearl MD [address] [place] [address] PCP - General 11/12/00 Sheng Gomez MD [address] [place] [address] Ditch Repairer Cardiology 09/20/20 Asher Hummel MD [address] [place] [address] Physician Hematology/Oncology 06/29/21 Wilfred Martinez, UX VISUAL DESIGNER.DERRICK HELPER [address] [place] [address] Nurse Practitioner Hematology/Oncology 06/29/21 Angle Kamara, MONET [address] [place] [address] Specialty Rn Post Partum Hematology/Oncology 06/29/21 Central Office Trouble Shooter Relationship Specialty Start Date End Date Flash Pearl MD [address] [place] [address] PCP - General 11/12/00 Sheng Gomez MD [address] [place] [address] Ditch Repairer Cardiology 09/20/20 Asher Hummel MD [address] [place] [address] Physician Hematology/Oncology 06/29/21 Wilfred Martinez, UX VISUAL DESIGNER.DERRICK HELPER [address] [place] [address] Nurse Practitioner Hematology/Oncology 06/29/21 Angle Kamara, MONET [address] [address] Specialty Rn Post Partum Hematology/Oncology 06/29/21 Central Office Trouble Shooter Relationship Specialty Start Date End Date Flash Pearl MD [address] [place] [address] PCP - General 11/12/00 Sheng Gomez MD [address] [place] [address] Ditch Repairer Cardiology 09/20/20 Asher Hummel MD [address] [place] [address] Physician Hematology/Oncology 06/29/21 Wilfred Martinez, UX VISUAL DESIGNER.DERRICK HELPER [address] [place] [address] Nurse Practitioner Hematology/Oncology 06/29/21 Angle Kamara, RN [address] [place] [address] Specialty Rn Post Partum Hematology/Oncology 06/29/21 Central Office Trouble Shooter Relationship Specialty Start Date End Date Flash Pearl MD [address] [place] [address] PCP - General 11/12/00 Sheng Gomez MD [address] [place] [address] Ditch Repairer Cardiology 09/20/20 Asher Hummel MD [address] [place] [address] Physician Hematology/Oncology 06/29/21 Wilfred Martinez, UX VISUAL DESIGNER.DERRICK HELPER [address] [place] [address] Nurse Practitioner Hematology/Oncology 06/29/21 Angle Kamara, MONET [address] [place] [address] Specialty Rn Post Partum Hematology/Oncology 06/29/21 Central Office Trouble Shooter Relationship Specialty Start Date End Date Flash Pearl MD [address] [place] [address] PCP - General 11/12/00 Sheng Gomez MD [address] [place] [address] Ditch Repairer Cardiology 09/20/20 Asher Hummel MD [address] [address] Physician Hematology/Oncology 06/29/21 Wilfred Martinez, UX VISUAL DESIGNER.DERRICK HELPER [address] [place] [address] Nurse Practitioner Hematology/Oncology 06/29/21 Angle Kamara, MONET [address] [place] [address] Specialty Rn Post Partum Hematology/Oncology 06/29/21 Central Office Trouble Shooter Relationship Specialty Start Date End Date Flash Pearl MD [address] [place] [address] PCP - General 11/12/00 Sheng Gomez MD [address] [place] [address] Ditch Repairer Cardiology 09/20/20 Asher Hummel MD [address] [place] [address] Physician Hematology/Oncology 06/29/21 Wilfred Martinez, UX VISUAL DESIGNER.DERRICK HELPER [address] [place] [address] Nurse Practitioner Hematology/Oncology 06/29/21 Angle Kamara, MONET [address] [place] [address] Specialty Rn Post Partum Hematology/Oncology 06/29/21 [facility] Esl Teacher 11/17/22 Central Office Trouble Shooter Relationship Specialty Start Date End Date Flash Pearl MD [address] [place] [address] PCP - General 11/12/00 Sheng Gomez MD [address] [place] [address] Ditch Repairer Cardiology 09/20/20 Asher Hummel MD [address] [place], [place] [id number] Physician Hematology/Oncology 06/29/21 Wilfred Martinez, UX VISUAL DESIGNER.DERRICK HELPER [address] [place] [address] Nurse Practitioner Hematology/Oncology 06/29/21 Angle Kamara, MONET [address] [place] [address] Specialty Rn Post Partum Hematology/Oncology 06/29/21 [facility] Esl Teacher 11/17/22 Central Office Trouble Shooter Relationship Specialty Start Date End Date Flash Pearl MD [address] [place] [address] PCP - General 11/12/00 Sheng Gomez MD [address] [place] [address] Ditch Repairer Cardiology 09/20/20 Asher Hummel MD [address] [place] [address] Physician Hematology/Oncology 06/29/21 Wilfred Martinez, UX VISUAL DESIGNER.DERRICK HELPER [address] [place] [address] Nurse Practitioner Hematology/Oncology 06/29/21 Angle Kamara, RN [address] [place] [address] Specialty Rn Post Partum Hematology/Oncology 06/29/21 [facility] Esl Teacher 11/17/22 Team Status: Active Member Role Status Dates Jacquelin Hernandes MD Primary Care Provider Active Team Status: Inactive Member Role Status Dates Jacquelin Hernandes MD Primary Care Provider Active Start: October 17, 2023 End: October 17, 2023 Caryl Marie APRN Emergency Provider Active Start: October 17, 2023 End: October 17, 2023 Goals (unrecognized section and content) Goals may be documented in a n alternate section FOR RECORDS PERTAINING TO PATIENTS WHO ARE [...] BE BASED ON THE PRIMARY CLINICAL RECORDS. [employer] provides no warranty or guarantee of the accuracy or completeness of information in this document.
[2023-10-21 07:14] VITALS: BP 130/69; PULSE 56; RESP 20; TEMP 35.9; O2SAT 98
[2023-10-21 07:14] LABS: Glucometer 133 mg/dL (74-106)
[2023-10-21] MEDS: DIPHENHYDRAMINE HCL 25 MG CAPSULE PO (07:36)
[2023-10-21] MEDS: ACETAMINOPHEN 325 MG TABLET 650 MG PO (07:37)
[2023-10-21 07:57] VITALS: BP 134/73; PULSE 69; RESP 20; TEMP 36.2
--- NOTE | 2023-10-21 09:00 | PC.NURSE ---
Please see printed vitals
--- NOTE | 2023-10-21 15:06 | PC.NURSE ---
10/21/2023- (7488) Dr. Villafana at bedside and talks with patient and patient's . Discusses past medical history. (7540)- Dr. Howard paged. (1042)- Dr. Howard returns page and talks with Dr. Villafana. Patient to go to [facility] ER and be seen by ENT there. (2909) Dr. Villafana and Dr. Marshall at patient's bedside and talks with patient and patient's . Informed that patient will have to go to [facility] ER for evaluation by ENT. Both verbalize a understanding. (0900) Blood continues to infuse. Patient to tolerating it well. 0930- Blood transfusion continues. Patient is resting at short intervals. remains present at bedside. (1030) Blood transfusion continues and patient is tolerating it well. (1110) Blood transfusion is complete. Patient tolerated it well. (1145) IV site to right upper arms remains. Site flushed without difficulty. Site protected with a ABDULAZIZ wrap. Patient discharged via wheelchair.
== END | disposition home or self-care (01) ==
PROVIDERS: PCP Family Medicine; Visit Provider Otolaryngology
PROC: (CPT 31238; principal; 2023-10-21 11:50)
DX: R04.0 Epistaxis (principal); D64.9 Anemia, unspecified; Z53.8 Procedure and treatment not carried out for other reasons; Z79.82 Long term (current) use of aspirin; Z79.84 Long term (current) use of oral hypoglycemic drugs; I13.0 Hypertensive heart and chronic kidney disease with heart failure and stage 1 through stage 4 chronic kidney disease, or unspecified chronic kidney disease; E11.22 Type 2 diabetes mellitus with diabetic chronic kidney disease; N18.4 Chronic kidney disease, stage 4 (severe); I50.22 Chronic systolic (congestive) heart failure; I25.10 Atherosclerotic heart disease of native coronary artery without angina pectoris; K21.9 Gastro-esophageal reflux disease without esophagitis; Z85.46 Personal history of malignant neoplasm of prostate; I48.21 Permanent atrial fibrillation; I34.0 Nonrheumatic mitral (valve) insufficiency; I27.20 Pulmonary hypertension, unspecified; Z86.010 Personal history of colon polyps; E78.00 Pure hypercholesterolemia, unspecified; G47.33 Obstructive sleep apnea (adult) (pediatric); Z95.5 Presence of coronary angioplasty implant and graft; Z99.81 Dependence on supplemental oxygen
CPT/HCPCS: 31238; 36415; 36430; 82948; P9016

== ENCOUNTER 2023-10-28 11:52 | Outpatient (OUT) | payer MEDICARE, SELFPAY ==
[2023-10-28 12:16] LABS: Mean Corpuscular HGB Conc 30.6 g/dL (29.9-35.2); Mean Corpuscular Hemoglobin 30.9 pg (25.9-34.0); Platelet Count 89 10^3/uL (150-450); Red Blood Count 2.04 10^6/uL (4.70-6.10); Red Cell Distribution Width 21.4 % (11.0-15.0); White Blood Count 2.3 10^3/uL (4.0-11.0)
[2023-10-28 12:42] LABS: Hemoglobin 6.3 g/dL (14.0-18.0)
[2023-10-28 12:43] LABS: Hematocrit 20.6 % (42.0-54.0)
[2023-10-28 13:07] LABS: Lymphocytes Absolute Manual 0.55 10^3/uL (1.20-3.80)
[2023-10-28 13:08] LABS: Basophils Abs Manual 0.02 10^3/uL (0.00-0.10); Eosinophils Absolute Manual 0.02 10^3/uL (0.00-0.70); Monocytes Absolute Manual 0.55 10^3/uL (0.30-0.80)
== END 2023-10-28 11:53 | disposition home or self-care (01) ==
LOC: LAB 11:54
PROVIDERS: PCP Family Medicine; Visit Provider Internal Medicine Hematology & Oncology
DX: D46.9 Myelodysplastic syndrome, unspecified (principal)
CPT/HCPCS: 36415; 85007; 85027; 86850; 86900; 86901

== ENCOUNTER 2023-11-11 11:32 | Outpatient (OUT) | payer MEDICARE, SELFPAY ==
[2023-11-11 12:11] LABS: Estimated Average Glucose 146 mg/dL; Glycohemoglobin A1C 6.7 % (4.5-6.2)
== END 2023-11-11 11:33 | disposition home or self-care (01) ==
LOC: LAB 11:34
PROVIDERS: PCP Family Medicine; Visit Provider Family Medicine
DX: E11.22 Type 2 diabetes mellitus with diabetic chronic kidney disease (principal); N18.4 Chronic kidney disease, stage 4 (severe); K21.9 Gastro-esophageal reflux disease without esophagitis
CPT/HCPCS: 36415; 82607; 83036; 86850; 86900; 86901

== ENCOUNTER 2023-11-25 07:26 | Outpatient (RCR) | payer MEDICARE, SELFPAY ==
[2023-10-29] VITALS (9 sets, daily range): BP systolic 110–128; BP diastolic 55–69; PULSE 59–77; TEMP 36.1–36.6; O2SAT 93–99
[2023-10-29] MEDS: ACETAMINOPHEN 325 MG TABLET 650 MG PO (09:26)
[2023-10-29] MEDS: DIPHENHYDRAMINE HCL 25 MG CAPSULE PO (09:26)
--- NOTE | 2023-10-29 09:27 | PC.NURSE ---
0910 Arrival per w/c to chair 3, accompanied by , alert oriented, offers no complaints. VS obtained, heart tones regular, lungs clear to auscultation, oxygen at 3 lpm nc, connected to wall oxygen supply. No peripheral edema noted.
[2023-10-29] MEDS: 0.9 % SODIUM CHLORIDE 250 ML IV (09:30)
--- NOTE | 2023-10-29 09:34 | PC.NURSE ---
0933 1st unit of prbc's initiated.
--- NOTE | 2023-10-29 09:50 | PC.NURSE ---
tolerating transfusion without difficulty. rate increased to 150.
--- NOTE | 2023-10-29 11:39 | PC.NURSE ---
1030 prbc's infusing without difficulty, sister visits at chairside. 1130 Prbc's infusing, no s/s of rxn 1140 prbc's infused.
--- NOTE | 2023-10-29 12:12 | PC.NURSE ---
1145 2nd unit of prbc's initiated, patient declines lasix between units request to only get it after 2nd unit is infused. lunch ordered.
--- NOTE | 2023-10-29 13:07 | PC.NURSE ---
1230 Eats 100% lunch, tolerating infusion without problems
[2023-10-29] MEDS: FUROSEMIDE 20 MG/2 ML VIAL IV (13:56)
--- NOTE | 2023-10-29 14:44 | PC.NURSE ---
1400 IV dc'd catheter intact site clear, cottonball and cobban applied to site, instructed to remove once they get home. verbalize understanding. 1405 released to private auto per wheelchair
[2023-11-04 11:41] LABS: Hemoglobin 7.4 g/dL (14.0-18.0); Mean Corpuscular Hemoglobin 31.8 pg (25.9-34.0); Mean Corpuscular Volume 102.6 fL (80.0-94.0); Mean Platelet Volume 14.5 fL (9.5-13.5); Platelet Count 81 10^3/uL (150-450); Red Blood Count 2.33 10^6/uL (4.70-6.10); Red Cell Distribution Width 21.4 % (11.0-15.0); White Blood Count 1.6 10^3/uL (4.0-11.0)
[2023-11-04 11:47] LABS: Hematocrit 23.9 % (42.0-54.0)
[2023-11-04 11:54] LABS: Alanine Aminotransferase 125 U/L (16-63); Albumin Globulin Ratio 0.6; Albumin Level 2.6 g/dL (3.4-5.0); Alkaline Phosphatase 185 U/L (46-116); Anion Gap 14.4; Aspartate Amino Transferase 62 U/L (15-37); BUN Creatinine Ratio 19.7; Bilirubin Total 0.8 mg/dL (0.2-1.0); Calcium 8.1 mg/dL (8.5-10.1); Carbon Dioxide 28.3 mmol/L (21.0-32.0); Chloride 105 mmol/L (98-107); Estimated GFR (African America 53 (>=60); Estimated GFR (Non-African Ame 44 (>=60); Globulin 4.2 g/dL; Glucose 127 mg/dL (74-106); Potassium 3.7 mmol/L (3.5-5.1); Sodium 144 mmol/L (136-145); Total Protein 6.8 g/dL (6.4-8.2)
[2023-11-04 12:04] LABS: Band Neutrophils Absolute 0.1 10^3/uL (0.0-0.3); Monocytes Absolute Manual 0.19 10^3/uL (0.30-0.80); Myelocytes Absolute Manual 0.03; Segmented Neut Absolute Manual 0.51 10^3/uL (1.4-6.5)
[2023-11-04 12:05] LABS: Anisocytosis 1+; Macrocytosis 1+
[2023-11-05 08:41] VITALS: BP 124/74; PULSE 68; TEMP 36.2; O2SAT 95
--- NOTE | 2023-11-05 08:47 | PC.NURSE ---
0830 Arrival per w/c to chair 3. alert oriented, lungs clear posteriorly. heart tones irregular, denies shortness of breath or any other symptoms. #22 initiated rt uppper arm. tolerated well. NS initiated.at o.
[2023-11-05] MEDS: 0.9 % SODIUM CHLORIDE 250 ML IV (08:56)
[2023-11-05] MEDS: DIPHENHYDRAMINE HCL 25 MG CAPSULE PO (08:57)
[2023-11-05] MEDS: ACETAMINOPHEN 325 MG TABLET 650 MG PO (08:57)
[2023-11-05 09:11] VITALS: BP 110/64; PULSE 68; TEMP 36.2; O2SAT 95
--- NOTE | 2023-11-05 09:14 | PC.NURSE ---
0912 prbc's initiated at 120 ml hr. patient instructed to notify staff if experiences any shortness of breath chest pain back pain flank pain itching wheezing etc. verbalize understanding
[2023-11-05 11:15] VITALS: BP 123/69; PULSE 67; TEMP 36.3; O2SAT 98
--- NOTE | 2023-11-05 11:35 | PC.NURSE ---
1115 prbc infused, ns flush began. lung remain clear, respirations with ease, oxygen cont's at 3 lpm nc. no complaints offered. 1125 flush finished, iv dc'd catheter intact site clear, cottonball and coban applied. 1130 to bathroom per wheelchair. 1140 released per wheelchair to private auto
[2023-11-11 12:02] LABS: Hemoglobin 7.1 g/dL (14.0-18.0); Mean Corpuscular HGB Conc 30.9 g/dL (29.9-35.2); Mean Corpuscular Hemoglobin 31.6 pg (25.9-34.0); Mean Corpuscular Volume 102.2 fL (80.0-94.0); Mean Platelet Volume 14.2 fL (9.5-13.5); Platelet Count 75 10^3/uL (150-450); Red Blood Count 2.25 10^6/uL (4.70-6.10); Red Cell Distribution Width 21.1 % (11.0-15.0); White Blood Count 1.6 10^3/uL (4.0-11.0)
[2023-11-11 13:36] LABS: Lymphocytes Absolute Manual 0.43 10^3/uL (1.20-3.80); Monocytes Absolute Manual 0.41 10^3/uL (0.30-0.80)
[2023-11-11 13:37] LABS: Anisocytosis 2+; Hypochromasia 2+
[2023-11-12] MEDS: DIPHENHYDRAMINE HCL 25 MG CAPSULE PO (07:46)
[2023-11-12] MEDS: ACETAMINOPHEN 325 MG TABLET 650 MG PO (07:46)
[2023-11-12 07:49] VITALS: BP 141/68; PULSE 58; TEMP 36.2; O2SAT 94
--- NOTE | 2023-11-12 07:51 | PC.NURSE ---
0740 Arrival per w/c. assisted to chair 3. Alert oriented, offers no complaints. 0750 oxygen at 3 lpm nc. switched to wall oxygen. Respirations with ease, lungs clear posteriorly. Heart tones strong/irregular. Instructed on s/s of reaction, verbalize understanding. medicated with tylenol and benadryl po as ordered.
[2023-11-12 07:55] VITALS: BP 141/68; PULSE 58; TEMP 36.2
[2023-11-12 08:04] VITALS: BP 141/68; PULSE 58; TEMP 36.2; O2SAT 94
--- NOTE | 2023-11-12 08:15 | PC.NURSE ---
0805: 1 unit PRBC initiated at this time. Pt. given pillow, blanket and protein drink. Denies needs.
[2023-11-12 08:20] VITALS: BP 113/63; PULSE 53; TEMP 36.4; O2SAT 96
--- NOTE | 2023-11-12 08:53 | PC.NURSE ---
0820: Pt. tolerating PRBC without s&s of adverse reaction. VSS. Denies needs. and sister at bedside.
[2023-11-12 09:05] VITALS: BP 119/64; PULSE 54; TEMP 36.6; O2SAT 98
[2023-11-12 10:05] VITALS: BP 118/62; PULSE 58; TEMP 36.8; O2SAT 98
--- NOTE | 2023-11-12 10:22 | PC.NURSE ---
0905: No new changes in overall statu. Resting quietly with eyes closed. VSS.
--- NOTE | 2023-11-12 10:35 | PC.NURSE ---
1005: PRBC transfusion completed at this time without s&s of adverse reaction. VSS. IV d/c'd, pressure to site. Assisted into w/c. Portable O2 intact at 3l n/c. D/c'd to car and home with .
[2023-11-18 12:00] LABS: Mean Corpuscular HGB Conc 31.1 g/dL (29.9-35.2); Mean Corpuscular Hemoglobin 31.7 pg (25.9-34.0); Mean Corpuscular Volume 101.8 fL (80.0-94.0); Platelet Count 67 10^3/uL (150-450); Red Blood Count 2.18 10^6/uL (4.70-6.10); Red Cell Distribution Width 21.3 % (11.0-15.0); White Blood Count 1.4 10^3/uL (4.0-11.0)
[2023-11-18 12:14] LABS: Anion Gap 15.6; BUN Creatinine Ratio 18.1; Calcium 8.5 mg/dL (8.5-10.1); Carbon Dioxide 29.8 mmol/L (21.0-32.0); Chloride 104 mmol/L (98-107); Estimated GFR (African America 43 (>=60); Estimated GFR (Non-African Ame 36 (>=60); Glucose 230 mg/dL (74-106); Potassium 3.4 mmol/L (3.5-5.1); Sodium 146 mmol/L (136-145)
[2023-11-18 12:16] LABS: Hemoglobin 6.9 g/dL (14.0-18.0)
[2023-11-18 12:17] LABS: Hematocrit 22.2 % (42.0-54.0)
[2023-11-18 12:59] LABS: Segmented Neut Absolute Manual 0.58 10^3/uL (1.4-6.5)
[2023-11-18 13:00] LABS: Lymphocytes Absolute Manual 0.39 10^3/uL (1.20-3.80); Monocytes Absolute Manual 0.36 10^3/uL (0.30-0.80)
[2023-11-18 13:01] LABS: Atypical Lymphocytes Abs Man 0.02
[2023-11-18 13:03] LABS: Anisocytosis 1+; Poikilocytosis 1+
[2023-11-18 13:04] LABS: Ovalocytes 1+
[2023-11-19 08:20] VITALS: BP 133/75; PULSE 63; TEMP 36.4; O2SAT 95
--- NOTE | 2023-11-19 08:22 | PC.NURSE ---
0820 Arrival per wheelchair. alert oriented, color pale, skin warm dry. Oxygen switched to wall oxygen at 3 lpm per nc. Respirations with ease, lungs clear to auscultation. heart tones irregular. no peripheral edema noted.
--- NOTE | 2023-11-19 08:24 | PC.NURSE ---
0825 IV initiated rt upper arm, per arvind santos rn. toleratated well.
[2023-11-19] MEDS: DIPHENHYDRAMINE HCL 25 MG CAPSULE PO (08:25)
[2023-11-19] MEDS: ACETAMINOPHEN 325 MG TABLET 650 MG PO (08:25)
[2023-11-19] MEDS: 0.9 % SODIUM CHLORIDE 250 ML 10 ML IV (08:26)
[2023-11-19 08:34] VITALS: BP 133/75; PULSE 63; TEMP 36.4; O2SAT 95
[2023-11-19 08:52] VITALS: BP 115/58; PULSE 52; TEMP 36.4; O2SAT 97
[2023-11-19 09:52] VITALS: BP 128/78; PULSE 62; TEMP 36.6; O2SAT 97
--- NOTE | 2023-11-19 09:55 | PC.NURSE ---
tolerating transfusion without any issues, family visits, eats banana and protein drink
--- NOTE | 2023-11-19 10:38 | PC.NURSE ---
prbc's infused, tolerated well, normal saline flush initiated. lungs remain clear,no complaints offered.
--- NOTE | 2023-11-19 11:10 | PC.NURSE ---
1110 iv dc'd catheter intact, site clear. cottonball and coban applied. assisted to bathroom. 1115 released per wheelchair.
[2023-11-25 12:15] LABS: Anion Gap 9.7; BUN Creatinine Ratio 17.7; Carbon Dioxide 34.3 mmol/L (21.0-32.0); Chloride 102 mmol/L (98-107); Estimated GFR (African America 32 (>=60); Estimated GFR (Non-African Ame 26 (>=60); Glucose 112 mg/dL (74-106); Sodium 142 mmol/L (136-145)
[2023-11-25 12:39] LABS: Mean Corpuscular HGB Conc 30.2 g/dL (29.9-35.2); Mean Corpuscular Hemoglobin 30.5 pg (25.9-34.0); Mean Corpuscular Volume 100.9 fL (80.0-94.0); Platelet Count 55 10^3/uL (150-450); Red Blood Count 2.23 10^6/uL (4.70-6.10); Red Cell Distribution Width 21.7 % (11.0-15.0)
[2023-11-25 12:44] LABS: Hematocrit 22.5 % (42.0-54.0); Hemoglobin 6.8 g/dL (14.0-18.0)
[2023-11-25 12:52] LABS: Albumin Level 3.1 g/dL (3.4-5.0); Magnesium 1.3 mg/dL (1.8-2.4); Phosphorus 4.4 mg/dL (2.6-4.7); Uric Acid 6.7 mg/dL (3.5-7.2)
[2023-11-25 13:13] LABS: Eosinophils Absolute Manual 0.02 10^3/uL (0.00-0.70); Lymphocytes Absolute Manual 0.56 10^3/uL (1.20-3.80); Monocytes Absolute Manual 0.56 10^3/uL (0.30-0.80); Segmented Neut Absolute Manual 0.84 10^3/uL (1.4-6.5)
[2023-11-25 13:14] LABS: Anisocytosis 2+; Hypochromasia 1+
[2023-11-26 13:08] LABS: PTH, Intact 72 pg/mL (15-65)
== END 2023-11-25 23:59 | disposition home or self-care (01) ==
LOC: INF 07:26
PROVIDERS: PCP Family Medicine; Visit Provider Internal Medicine Hematology & Oncology
DX: D46.20 Refractory anemia with excess of blasts, unspecified (principal); N18.4 Chronic kidney disease, stage 4 (severe); D63.1 Anemia in chronic kidney disease; D46.9 Myelodysplastic syndrome, unspecified
CPT/HCPCS: 36415; 36430; 80048; 80053; 82042; 82306; 83735; 83970; 84100; 84550; 85007; 85027; 86850; 86900; 86901; G0463; P9016

== ENCOUNTER 2023-11-27 09:00 | Emergency (ER) | payer MEDICARE, SELFPAY ==
[2023-11-27 09:10] VITALS: BP 126/67; PULSE 78; TEMP 36.6; O2SAT 98; BMI 36.0
--- NOTE | 2023-11-27 09:42 | ED_ITS ---
HPI HPI - General Adult General Chief complaint: Recheck/Abnormal Lab/Rx Stated complaint: SHORTNESS OF BREATH/ CHILLS Time Seen by Provider: 11/27/23 09:42 Source: patient and family Mode of arrival: walk-in Limitations: no limitations History of Present Illness HPI narrative: This patient is here with his . He was supposed to receive blood transfusions at the infusion center but he complained of being shortness of breath and chills so they sent him to the ER. Here in the ER we checked his temperature twice and he had is not elevated. He gets regular blood because of a myelodysplasia problem. He just saw his marketing program coordinator at the [facility] yesterday for the first visit and they recommended a little bit more aggressive diuresis starting today, the day of his blood transfusion. He has not taken either of the new medication recommendations yet today. He has not had fever that he was aware of. He does have some chills. Does not have aches and pains, no nausea or vomiting. No discomfort in his chest or heaviness. He does have chronic leg edema. Related Data Home Medications ?Medication ?Instructions ?Recorded ?Confirmed aspirin 81 mg tablet,delayed 81 mg PO QPM 02/03/23 10/29/23 release dapagliflozin propanediol 10 mg 10 mg PO DAILY 02/03/23 10/29/23 tablet (Farxiga) omeprazole 40 mg capsule,delayed 40 mg PO DAILY 02/03/23 10/29/23 release terazosin 5 mg capsule 5 mg PO QPM 02/03/23 10/29/23 atorvastatin 20 mg tablet 20 mg PO QDAY 04/23/23 10/29/23 blood sugar diagnostic ([facility] 04/23/23 10/29/23 Ultra Test strips) cholecalciferol (vitamin D3) 25 25 mcg PO DAILY 07/09/23 10/29/23 mcg (1,000 unit) tablet (Vitamin D3) cyclobenzaprine 5 mg tablet 5 mg PO BID PRN muscle spasm 07/09/23 10/29/23 glipizide 5 mg tablet, extended 5 mg PO QPM 07/09/23 10/29/23 release 24 hr (Glucotrol XL) metoprolol succinate 25 mg 25 mg PO DAILY 07/09/23 10/29/23 tablet,extended release 24 hr (Toprol XL) Previous Rx's ?Medication ?Instructions ?Recorded bumetanide 1 mg tablet 1 mg PO QAM #0 tabs 07/10/23 febuxostat 40 mg tablet 40 mg PO DAILY 30 days #30 tabs 07/10/23 lisinopril 2.5 mg tablet 2.5 mg PO DAILY 30 days #30 tabs 07/10/23 cephalexin 500 mg capsule 500 mg PO Q12H 7 days #14 caps 10/01/23 Allergies Allergy/AdvReac Type Severity Reaction Status Date / Time bee venom protein (honey bee) Allergy Severe Hives Verified 10/21/23 07:06 carvedilol Allergy Hives Verified 10/21/23 07:06 Opioid HPI Opioid Management Most Recent Opioid Data: No Data to Display [facility] Medical History (Updated 11/27/23 @ 10:39 by Abhinav Park MD) Syncopal episodes ?R55 - Syncope and collapse (ICD-10) Serous otitis media ?H65.90 - Unspecified nonsuppurative otitis media, unspecified ear (ICD-10) Chronic respiratory failure with hypoxia ?J96.11 - Chronic respiratory failure with hypoxia (ICD-10) Hearing loss ?H91.90 - Unspecified hearing loss, unspecified ear (ICD-10) Prostate cancer ?C61 - Malignant neoplasm of prostate (ICD-10) Kidney cysts ?N28.1 - Cyst of kidney, acquired (ICD-10) Bone marrow failure ?D61.9 - Aplastic anemia, unspecified (ICD-10) Angina pectoris ?I20.9 - Angina pectoris, unspecified (ICD-10) Pulmonary hypertension ?I27.20 - Pulmonary hypertension, unspecified (ICD-10) PVC (premature ventricular contraction) ?I49.3 - Ventricular premature depolarization (ICD-10) Sleep apnea ?G47.30 - Sleep apnea, unspecified (ICD-10) Colon polyp ?K63.5 - Polyp of colon (ICD-10) Gout ?M10.9 - Gout, unspecified (ICD-10) GERD (gastroesophageal reflux disease) ?K21.9 - Gastro-esophageal reflux disease without esophagitis (ICD-10) Extremity edema ?R60.0 - Localized edema (ICD-10) 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 - Cystic disease of liver (ICD-10) Chronic renal impairment ?N18.9 - Chronic kidney disease, unspecified (ICD-10) Stage III chronic kidney disease ?N18.30 - Chronic kidney disease, stage 3 unspecified (ICD-10) Bradycardia ?R00.1 - Bradycardia, unspecified (ICD-10) Benign prostatic hyperplasia ?N40.0 - Benign prostatic hyperplasia without lower urinary tract symptoms (ICD-10) 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 - Hypertensive chronic kidney disease with stage 1 through stage 4 chronic kidney disease, or unspecified chronic kidney disease (ICD-10) NYHA Class III cardiovascular function Renal insufficiency ?N28.9 - Disorder of kidney and ureter, unspecified (ICD-10) History of blood transfusion ?Z92.89 - Personal history of other medical treatment (ICD-10) MDS (myelodysplastic syndrome) ?D46.9 - Myelodysplastic syndrome, unspecified (ICD-10) Type 2 myocardial infarction ?I21.A1 - Myocardial infarction type 2 (ICD-10) Decompensated heart failure ?I50.9 - Heart failure, unspecified (ICD-10) Pancytopenia ?D61.818 - Other pancytopenia (ICD-10) Tricuspid regurgitation ?I07.1 - Rheumatic tricuspid insufficiency (ICD-10) Mitral valve regurgitation ?I34.0 - Nonrheumatic mitral (valve) insufficiency (ICD-10) GI (gastrointestinal bleed) ?K92.2 - Gastrointestinal hemorrhage, unspecified (ICD-10) Chronic diastolic heart failure ?I50.32 - Chronic diastolic (congestive) heart failure (ICD-10) Atrial fibrillation ?I48.91 - Unspecified atrial fibrillation (ICD-10) CAD (coronary artery disease) ?I25.10 - Atherosclerotic heart disease of [place] coronary artery without angina pectoris (ICD-10) Decreased appetite ?R63.0 - Anorexia (ICD-10) Dyspnea on exertion ?R06.09 - Other forms of dyspnea (ICD-10) On home oxygen therapy ?Z99.81 - Dependence on supplemental oxygen (ICD-10) Hyperkalemia ?E87.5 - Hyperkalemia (ICD-10) Epistaxis ?R04.0 - Epistaxis (ICD-10) CHF (congestive heart failure) ?I50.9 - Heart failure, unspecified (ICD-10) Myelodysplastic disease ?C94.6 - Myelodysplastic disease, not elsewhere classified (ICD-10) Anemia ?D64.9 - Anemia, unspecified (ICD-10) Hyperlipemia ?E78.5 - Hyperlipidemia, unspecified (ICD-10) Diabetes ?E11.9 - Type 2 diabetes mellitus without complications (ICD-10) Transfusion of blood during current hospitalisation Hypertension ?I10 - Essential (primary) hypertension (ICD-10) 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, valve unspecified (ICD-10) Anemia ?D64.9 - Anemia, unspecified (ICD-10) Surgical History (Updated 10/20/23 @ 14:09 by Kiah Lind NP) History of esophagogastroduodenoscopy (EGD) ?Z98.890 - Other specified postprocedural states (ICD-10) History of colonoscopy ?Z98.890 - Other specified postprocedural states (ICD-10) History of cardiac catheterization ?Z98.890 - Other specified postprocedural states (ICD-10) H/O right heart catheterization ?Z98.890 - Other specified postprocedural states (ICD-10) History of nasal cauterization ?Z98.890 - Other specified postprocedural states (ICD-10) S/P arterial stent ?Z95.9 - Presence of cardiac and vascular implant and graft, unspecified (ICD-10) History of heart artery stent ?Z95.5 - Presence of coronary angioplasty implant and graft (ICD-10) Family History Father Family history of stroke Mother Family history of stroke Family history of hypertension Family history of CHF (congestive heart failure) Brother Family history of diabetes mellitus Sister Family history of cancer Social History (Updated 10/21/23 @ 07:07 by Anna Uribe) Within the past year, how often did you have a drink containing alcohol: never Score interpretation: A score less than 4 is consistent with normal alcohol consumption. 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 level of school completed/degree received: high school graduate Are you now , , , , never or living with a partner: In a typical week, how many times do you talk on the telephone with family, friends, or neighbors: 3 or more times per week How often do you get together with friends or relatives: 3 or more times per week How often do you attend mu-ism or adventism services: 1-3 times per year Little interest or pleasure in doing things: not at all Feeling down, depressed, or hopeless: not at all Feel stressed/tense/nervous/anxious/difficulty sleeping: not at all Life stressors: unknown source of stress Do you think of yourself as: straight/heterosexual Gender Identity: male Exam Narrative Exam Narrative: This patient is here with his . They are both adequate historians. He appears in no acute distress head he is afebrile here. Pulse oximetry is 95 to 96% on room air. Examination of his lungs they are clear bilaterally with no wheezing no rales or rhonchi. He has no pleural rub. Heart sounds show an occasional ectopic beat. He states he has severe mitral valve disease but I do not hear an obvious murmur. He does not have a sternotomy incision but does have cardiac stents. Legs show chronic 2-3+ lower leg edema. There is no erythema or evidence of cellulitis. He does not have any abdominal discomfort today. He does not have any chest discomfort today. Constitutional Vital Signs, click to edit/add: Last Vital Signs Temp 97.9 F 11/27/23 09:10 Pulse 78 11/27/23 09:10 Resp 20 11/27/23 09:10 BP 126/67 11/27/23 09:10 Pulse Ox 98 11/27/23 09:10 O2 Del Method Nasal Cannula 11/27/23 09:10 O2 Flow Rate 3 11/27/23 09:10 Course Vital Signs Vital signs: Vital Signs Temperature 97.9 F 11/27/23 09:10 Pulse Rate 78 11/27/23 09:10 Respiratory Rate 20 11/27/23 09:10 Blood Pressure 126/67 11/27/23 09:10 Pulse Oximetry 98 11/27/23 09:10 Oxygen Delivery Method Nasal Cannula 11/27/23 09:10 Oxygen Delivery Flow Rate 3 11/27/23 09:10 Temperature 97.9 F 11/27/23 09:10 Pulse Rate 78 11/27/23 09:10 Respiratory Rate 20 11/27/23 09:10 Blood Pressure 126/67 11/27/23 09:10 Pulse Oximetry 98 11/27/23 09:10 Oxygen Delivery Method Nasal Cannula 11/27/23 09:10 Oxygen Delivery Flow Rate 3 11/27/23 09:10 Medical Decision Making MDM Narrative Medical decision making narrative: Patient has chronic kidney disease and myeloproliferative disorder with chronic anemia. I do not see a new source of infection. His chest x-ray findings are consistent with his previous recent chest x-ray and I do not believe there is any infectious process. He does need to blood transfusion. We did administer the 2 diuretics that his marketing program coordinator advised giving on the day of his transfusion which is today. We will send him back up to the transfusion center. Discharge Plan Discharge Stand Alone Forms: Portal Instructions Chief Complaint: Recheck/Abnormal Lab/Rx Clinical Impression: Anemia Patient Disposition: Home, Self-Care Time of Disposition Decision: 10:39 Prescriptions / Home Meds: No Action dapagliflozin propanediol [Farxiga] 10 mg tablet 10 mg PO DAILY omeprazole 40 mg capsule,delayed release(DR/EC) 40 mg PO DAILY Hold Instructions: Doctor's Order terazosin 5 mg capsule 5 mg PO QPM aspirin 81 mg tablet,delayed release (DR/EC) 81 mg PO QPM cephalexin 500 mg capsule 500 mg PO Q12H 7 Days Qty: 14 0RF Hold Instructions: Doctor's Order atorvastatin 20 mg tablet 20 mg PO QDAY (DME) OneTouch Ultra Test Strip MISCELLANEOUS glipizide [Glucotrol XL] 5 mg tablet extended release 24hr 5 mg PO QPM metoprolol succinate [Toprol XL] 25 mg tablet extended release 24 hr 25 mg PO DAILY Hold Instructions: nephrology consult cyclobenzaprine 5 mg tablet 5 mg PO BID PRN (Reason: muscle spasm) cholecalciferol (vitamin D3) [Vitamin D3] 25 mcg (1,000 unit) tablet 25 mcg PO DAILY lisinopril 2.5 mg tablet 2.5 mg PO DAILY 30 Days Qty: 30 0RF febuxostat 40 mg Tablet 40 mg PO DAILY 30 Days Qty: 30 0RF Hold Instructions: nephrology consult bumetanide 1 mg tablet 1 mg PO QAM Qty: 0 0RF Print Language: Azerbaijani Additional Instructions: Proceed to the infusion center for your routine blood transfusion Referrals: Maxi Whaley MD [Primary Care Provider] - 1 week
[2023-11-27 09:43] VITALS: PULSE 65; TEMP 36.9; O2SAT 95
--- NOTE | 2023-11-27 09:44 | XR_ITS ---
[address] [address] Patient Name: SANDIP BROUSSARD MRN: [id number] date: 1940 Sex: M Assigned Patient Location: ER Current Patient Location: Accession/Order Number: [id number] Exam Date: 11/27/2023 09:50 Report Date: 11/27/2023 10:02 At the request of: JORGE FUNES Procedure: XR chest 1V EXAM: Chest x-ray HISTORY: . Dyspnea . COMPARISON: 09/29/2023 TECHNIQUE: Single view of the chest FINDINGS: Heart is mildly enlarged. Vascularity is unremarkable. There is an infiltrate involving the right lower lobe along with a mild sized right effusion. There is atelectasis and or infiltrate in the left proximal cardiac region along with a small left effusion. Atherosclerotic changes of the thoracic aorta are noted. EKG leads overlie the chest. XR/XR chest 1V IMPRESSION: 1. Atelectasis and or infiltrate in the right lung base along with a mild sized right effusion. 2. Atelectasis versus early infiltrate in the left retrocardiac region along with a small left effusion. 3. Cardiac enlargement. Electronically authenticated by: JOSIE BAILEY Date: 11/27/2023 10:02
[2023-11-27 09:54] VITALS: BP 126/89
[2023-11-27] MEDS: BUMETANIDE 1 MG TABLET 4 MG PO (09:54)
[2023-11-27] MEDS: METOLAZONE 2.5 MG TABLET PO (09:55)
[2023-11-27 09:57] LABS: Mean Corpuscular HGB Conc 30.1 g/dL (29.9-35.2); Mean Corpuscular Hemoglobin 31.2 pg (25.9-34.0); Mean Corpuscular Volume 103.7 fL (80.0-94.0); Platelet Count 61 10^3/uL (150-450); Red Blood Count 2.18 10^6/uL (4.70-6.10); White Blood Count 7.1 10^3/uL (4.0-11.0)
[2023-11-27 10:06] LABS: Hemoglobin 6.8 g/dL (14.0-18.0)
[2023-11-27 10:07] LABS: Hematocrit 22.6 % (42.0-54.0)
[2023-11-27 10:13] LABS: Anion Gap 17.3; BUN Creatinine Ratio 17.9; Carbon Dioxide 28.4 mmol/L (21.0-32.0); Chloride 101 mmol/L (98-107); Estimated GFR (African America 34 (>=60); Estimated GFR (Non-African Ame 28 (>=60); Glucose 164 mg/dL (74-106); Potassium 3.7 mmol/L (3.5-5.1); Sodium 143 mmol/L (136-145)
[2023-11-27 10:41] LABS: Anisocytosis 1+; Ovalocytes 1+; Poikilocytosis 1+
[2023-11-27 10:47] VITALS: BP 126/88; PULSE 68; O2SAT 96
--- NOTE | 2023-11-27 10:50 | ECG_ITS ---
[facility] Test Date: 2023-11-27 Pat Name: SANDIP BROUSSARD Department: Room: - Gender: Male Software Team Leader: : 1940 Requested By: Order Number: [id number] Reading MD: BROOKE MANDEL Measurements Intervals [place] Rate: 48 P: -5 ND: 236 QRS: 116 QRSD: 124 T: -56 QT: 384 QTc: 352 Interpretive Statements Atrial fibrillation w/ frequent PVC 3233 Anteroseptal myocardial infarction,probably old; Intraventricular conduction delay abnormal ECG Electronically Signed On 11-27-2023 14:49:28 EDT by BROOKE MANDEL
[2023-11-27 11:52] LABS: Segmented Neut Absolute Manual 5.18 10^3/uL (1.4-6.5)
[2023-11-27 11:53] LABS: Band Neutrophils Absolute 0.2 10^3/uL (0.0-0.3)
[2023-11-27 11:54] LABS: Lymphocytes Absolute Manual 0.85 10^3/uL (1.20-3.80); Monocytes Absolute Manual 0.85 10^3/uL (0.30-0.80)
== END 2023-11-27 10:49 | disposition home or self-care (01) ==
PROVIDERS: Emergency Provider Emergency Medicine Emergency Medical Services; PCP Family Medicine
DX: D47.1 Chronic myeloproliferative disease (principal); D63.8 Anemia in other chronic diseases classified elsewhere; K21.9 Gastro-esophageal reflux disease without esophagitis; I27.20 Pulmonary hypertension, unspecified; I25.2 Old myocardial infarction; I07.1 Rheumatic tricuspid insufficiency; I34.0 Nonrheumatic mitral (valve) insufficiency; I13.0 Hypertensive heart and chronic kidney disease with heart failure and stage 1 through stage 4 chronic kidney disease, or unspecified chronic kidney disease; I50.32 Chronic diastolic (congestive) heart failure; J96.11 Chronic respiratory failure with hypoxia; H91.90 Unspecified hearing loss, unspecified ear; G47.30 Sleep apnea, unspecified; M10.9 Gout, unspecified; I48.91 Unspecified atrial fibrillation; I25.10 Atherosclerotic heart disease of native coronary artery without angina pectoris; E11.22 Type 2 diabetes mellitus with diabetic chronic kidney disease; Z98.890 Other specified postprocedural states; Z79.899 Other long term (current) drug therapy; Z99.81 Dependence on supplemental oxygen; Z85.46 Personal history of malignant neoplasm of prostate; Z86.010 Personal history of colon polyps; Z79.82 Long term (current) use of aspirin; Z95.9 Presence of cardiac and vascular implant and graft, unspecified; Z87.891 Personal history of nicotine dependence; D46.20 Refractory anemia with excess of blasts, unspecified; N18.4 Chronic kidney disease, stage 4 (severe); D63.1 Anemia in chronic kidney disease
CPT/HCPCS: 36415; 36430; 71045; 80048; 84484; 85007; 85027; 93005; 99285; P9016

== ENCOUNTER 2023-12-24 07:34 | Outpatient (RCR) | payer MEDICARE, SELFPAY ==
--- NOTE | 2023-11-27 10:48 | PC.NURSE ---
0845 Arrival per wheelchair, patient chilling complain fatigue shortness of breath temp 99.5 orally. transferred to er for evaluation. 1100 returned from ER per wheelchair. states they found nothing wrong. vs on arrival T99.9 orally, temporal arter 99.5 fine crackles bibasilar. IVF initiated
[2023-11-27] MEDS: DIPHENHYDRAMINE HCL 25 MG CAPSULE PO (11:02)
[2023-11-27] MEDS: 0.9 % SODIUM CHLORIDE 250 ML 10 ML IV (11:02)
[2023-11-27] MEDS: ACETAMINOPHEN 325 MG TABLET 650 MG PO (11:02)
[2023-11-27 11:04] VITALS: BP 114/63; PULSE 65; TEMP 37.7; O2SAT 95
[2023-11-27 11:20] VITALS: PULSE 69; TEMP 37.7; O2SAT 94
--- NOTE | 2023-11-27 11:26 | PC.NURSE ---
prbc's initiated at 120ml hr. instructed on s/s of reaction, chest pain, chilling itching wheezing dyspnea, notified to let staff know. verbalize understanding.
[2023-11-27 11:38] VITALS: BP 117/68; PULSE 50; TEMP 37.7; O2SAT 99
[2023-11-27 12:17] VITALS: BP 112/56; PULSE 58; TEMP 37; O2SAT 95
--- NOTE | 2023-11-27 12:27 | PC.NURSE ---
1230 tolerating transfusion. IV site to rt upper arm without reddness or edema. eating lunch at this time.
[2023-11-27 13:15] VITALS: BP 112/64; PULSE 60; TEMP 37.1; O2SAT 98
--- NOTE | 2023-11-27 13:58 | PC.NURSE ---
1330 ns infused. 1340 iv dc'd catheter intact site clear, cottonball and coban applied. 1345 up to bathroom per wheelchair. then released to private auto per wheelchair.
[2023-12-02 12:18] LABS: Hemoglobin 7.2 g/dL (14.0-18.0); Mean Corpuscular HGB Conc 31.2 g/dL (29.9-35.2); Mean Corpuscular Hemoglobin 31.3 pg (25.9-34.0); Mean Corpuscular Volume 100.4 fL (80.0-94.0); Mean Platelet Volume 14.7 fL (9.5-13.5); Platelet Count 118 10^3/uL (150-450); Red Cell Distribution Width 22.1 % (11.0-15.0); White Blood Count 10.7 10^3/uL (4.0-11.0)
[2023-12-02 12:34] LABS: Hematocrit 23.1 % (42.0-54.0)
[2023-12-02 13:35] LABS: Band Neutrophils Absolute 0.6 10^3/uL (0.0-0.3); Lymphocytes Absolute Manual 0.42 10^3/uL (1.20-3.80); Metamyelocytes Absolute Manual 0.21; Monocytes Absolute Manual 1.28 10^3/uL (0.30-0.80); Myelocytes Absolute Manual 0.42; Segmented Neut Absolute Manual 7.59 10^3/uL (1.4-6.5)
[2023-12-02 13:37] LABS: Anisocytosis 1+; Poikilocytosis 2+
[2023-12-02 13:38] LABS: Tear Drop Cells 1+
[2023-12-03 09:35] VITALS: BP 122/70; PULSE 55; TEMP 36.7; O2SAT 92
--- NOTE | 2023-12-03 09:47 | PC.NURSE ---
0935 Arrival per wheelchair. Alert oriented, states he just has been feeling really run down. IV initiated rt upper arm, tolerated well. Lungs clear posteriorly. heart tones irregular.[id number]
[2023-12-03] MEDS: ACETAMINOPHEN 325 MG TABLET 650 MG PO (09:53)
[2023-12-03] MEDS: DIPHENHYDRAMINE HCL 25 MG CAPSULE PO (09:53)
[2023-12-03] MEDS: 0.9 % SODIUM CHLORIDE 250 ML 30 ML IV (10:00)
[2023-12-03 10:08] VITALS: BP 122/70; PULSE 55; TEMP 36.7
--- NOTE | 2023-12-03 10:14 | PC.NURSE ---
1014 prbc's initiated at k120 ml hr.
[2023-12-03 10:29] VITALS: BP 109/58; PULSE 54; TEMP 36.2; O2SAT 94
--- NOTE | 2023-12-03 10:40 | PC.NURSE ---
tolerating prbc's without difficulty. rate increased [id number]. eats banana and drinks boost shake.
[2023-12-03 11:23] VITALS: BP 108/43; TEMP 36.3
[2023-12-03 11:29] VITALS: BP 119/56; PULSE 54; TEMP 36.9
--- NOTE | 2023-12-03 12:22 | PC.NURSE ---
1215 transfusion completed, normal saline flush initiated. and sister at chairside. Respirations with ease. lungs clear but diminishe bibasilar.
--- NOTE | 2023-12-03 12:35 | PC.NURSE ---
1225 ns flush completed. IV dc'd catheter intact site clear. Assisted to wheelchair to bathroom
[2023-12-09 12:45] LABS: Hemoglobin 7.3 g/dL (14.0-18.0); Mean Corpuscular HGB Conc 32.3 g/dL (29.9-35.2); Mean Corpuscular Volume 99.1 fL (80.0-94.0); Mean Platelet Volume 13.9 fL (9.5-13.5); Platelet Count 129 10^3/uL (150-450); Red Blood Count 2.28 10^6/uL (4.70-6.10); Red Cell Distribution Width 21.6 % (11.0-15.0); White Blood Count 7.2 10^3/uL (4.0-11.0)
[2023-12-09 12:48] LABS: Hematocrit 22.6 % (42.0-54.0)
[2023-12-09 12:58] LABS: BUN Creatinine Ratio 24.7; Calcium 8.5 mg/dL (8.5-10.1); Carbon Dioxide 35.3 mmol/L (21.0-32.0); Chloride 99 mmol/L (98-107); Estimated GFR (African America 39 (>=60); Estimated GFR (Non-African Ame 32 (>=60); Glucose 162 mg/dL (74-106); Potassium 3.3 mmol/L (3.5-5.1); Sodium 141 mmol/L (136-145)
[2023-12-09 13:42] LABS: Lymphocytes Absolute Manual 0.64 10^3/uL (1.20-3.80); Monocytes Absolute Manual 0.72 10^3/uL (0.30-0.80); Segmented Neut Absolute Manual 5.32 10^3/uL (1.4-6.5)
[2023-12-09 13:43] LABS: Band Neutrophils Absolute 0.2 10^3/uL (0.0-0.3); Metamyelocytes Absolute Manual 0.14; Myelocytes Absolute Manual 0.14
[2023-12-09 13:45] LABS: Anisocytosis 1+
[2023-12-10 09:48] VITALS: BP 125/65; PULSE 56; TEMP 36.8; O2SAT 96
[2023-12-10 09:56] VITALS: BP 125/62; PULSE 52; TEMP 36.8; O2SAT 97
[2023-12-10] MEDS: DIPHENHYDRAMINE HCL 25 MG CAPSULE PO (09:58)
[2023-12-10] MEDS: ACETAMINOPHEN 325 MG TABLET 650 MG PO (09:58)
[2023-12-10] MEDS: 0.9 % SODIUM CHLORIDE 250 ML 30 ML IV (09:59)
[2023-12-10 10:15] VITALS: BP 105/58; PULSE 50; TEMP 37; O2SAT 98
--- NOTE | 2023-12-10 10:16 | PC.NURSE ---
1000 prbc's initiated. lungs clear, heart tones irregular at 56 sl pedal and pretibial edema noted. instructed on s/s of reaction - chest pain, flank pain itching hives etc to notify staff, verbalize understanding
[2023-12-10 11:24] VITALS: BP 104/54; PULSE 59; TEMP 37; O2SAT 98
[2023-12-16 11:25] LABS: Hematocrit 24.1 % (42.0-54.0); Hemoglobin 7.7 g/dL (14.0-18.0); Mean Corpuscular Hemoglobin 32.1 pg (25.9-34.0); Mean Corpuscular Volume 100.4 fL (80.0-94.0); Mean Platelet Volume 14.7 fL (9.5-13.5); Platelet Count 83 10^3/uL (150-450); Red Cell Distribution Width 21.2 % (11.0-15.0); White Blood Count 6.7 10^3/uL (4.0-11.0)
[2023-12-16 11:55] LABS: Band Neutrophils Absolute 0.3 10^3/uL (0.0-0.3); Lymphocytes Absolute Manual 0.87 10^3/uL (1.20-3.80); Monocytes Absolute Manual 0.67 10^3/uL (0.30-0.80); Segmented Neut Absolute Manual 4.89 10^3/uL (1.4-6.5)
[2023-12-16 11:56] LABS: Anisocytosis 2+; Macrocytosis 2+
[2023-12-23 10:19] LABS: Hemoglobin 7.2 g/dL (14.0-18.0); Mean Corpuscular HGB Conc 32.4 g/dL (29.9-35.2); Mean Corpuscular Hemoglobin 32.3 pg (25.9-34.0); Mean Corpuscular Volume 99.6 fL (80.0-94.0); Mean Platelet Volume 14.3 fL (9.5-13.5); Platelet Count 115 10^3/uL (150-450); Red Blood Count 2.23 10^6/uL (4.70-6.10); Red Cell Distribution Width 21.3 % (11.0-15.0); White Blood Count 2.2 10^3/uL (4.0-11.0)
[2023-12-23 10:27] LABS: Hematocrit 22.2 % (42.0-54.0)
[2023-12-23 10:34] LABS: Anion Gap 13.8; BUN Creatinine Ratio 31.2; Calcium 8.6 mg/dL (8.5-10.1); Carbon Dioxide 29.9 mmol/L (21.0-32.0); Chloride 98 mmol/L (98-107); Estimated GFR (African America 26 (>=60); Estimated GFR (Non-African Ame 21 (>=60); Glucose 177 mg/dL (74-106); Potassium 3.7 mmol/L (3.5-5.1); Sodium 138 mmol/L (136-145)
[2023-12-23 11:10] LABS: Band Neutrophils Absolute 0.1 10^3/uL (0.0-0.3); Lymphocytes Absolute Manual 0.57 10^3/uL (1.20-3.80); Monocytes Absolute Manual 0.46 10^3/uL (0.30-0.80); Segmented Neut Absolute Manual 1.01 10^3/uL (1.4-6.5)
[2023-12-23 11:11] LABS: Metamyelocytes Absolute Manual 0.04; Myelocytes Absolute Manual 0.04
[2023-12-23 11:12] LABS: Anisocytosis 3+
[2023-12-24] MEDS: 0.9 % SODIUM CHLORIDE 250 ML 10 ML IV (09:15)
--- NOTE | 2023-12-24 09:27 | PC.NURSE ---
0910 Arrival wheelchair, alert oriented, oxygen at 3 lpm nc, transferred to recliner. wall oxygen applied at 3 lpm. #22 IV initiated left forearm, tolerated well. Lungs clear to auscultation, heartones strong and regular. educated on s/s of transfusion reaction, ie: chest, flank pain, chills fever itching shortness of breath to notify staff immediately, verbalizes understanding
[2023-12-24 09:31] VITALS: BP 100/52; PULSE 63; TEMP 36.2; O2SAT 98
[2023-12-24] MEDS: DIPHENHYDRAMINE HCL 25 MG CAPSULE PO (09:31)
[2023-12-24] MEDS: ACETAMINOPHEN 325 MG TABLET 650 MG PO (09:31)
[2023-12-24 09:34] VITALS: BP 100/52; PULSE 63; TEMP 36.2; O2SAT 98
--- NOTE | 2023-12-24 09:41 | PC.NURSE ---
0935 [facility]'s initiated see TAR. Eating bannana and boost. at chairside.
[2023-12-24 09:50] VITALS: BP 93/55; PULSE 61; TEMP 36.4; O2SAT 97
--- NOTE | 2023-12-24 09:53 | PC.NURSE ---
0950 Tolerating transfusion without any s/s of reaction. Rate increased to 200 ml hr.
[2023-12-24 10:35] VITALS: BP 107/59; PULSE 56; TEMP 36.6; O2SAT 97
--- NOTE | 2023-12-24 10:48 | PC.NURSE ---
Tolerating transfusion without issues, sits and visits with family
--- NOTE | 2023-12-24 11:44 | PC.NURSE ---
1110 prbc infused, ns flush started. Lungs remain clear to auscultation, tolerated transfusion well. 1130 NS flush completed, IV dc'd catheter intact site clear. To bathroom per wheelchair. 1145 Released per wheelchair
== END 2023-12-26 23:59 | disposition home or self-care (01) ==
LOC: INF 07:34
PROVIDERS: PCP Family Medicine; Visit Provider Internal Medicine Hematology & Oncology
DX: N18.4 Chronic kidney disease, stage 4 (severe) (principal); D46.20 Refractory anemia with excess of blasts, unspecified; D63.1 Anemia in chronic kidney disease; I25.2 Old myocardial infarction; I50.9 Heart failure, unspecified; Z87.891 Personal history of nicotine dependence; D61.818 Other pancytopenia; N17.9 Acute kidney failure, unspecified
CPT/HCPCS: 36415; 36430; 80048; 85007; 85027; 86850; 86900; 86901; 96365; G0463; P9016

== ENCOUNTER 2023-12-30 09:16 | Outpatient (OUT) | payer MEDICARE, SELFPAY ==
[2023-12-30 10:03] LABS: Mean Corpuscular HGB Conc 31.8 g/dL (29.9-35.2); Mean Corpuscular Hemoglobin 32.2 pg (25.9-34.0); Mean Corpuscular Volume 101.4 fL (80.0-94.0); Mean Platelet Volume 14.1 fL (9.5-13.5); Platelet Count 113 10^3/uL (150-450); Red Blood Count 2.08 10^6/uL (4.70-6.10); Red Cell Distribution Width 21.9 % (11.0-15.0); White Blood Count 7.2 10^3/uL (4.0-11.0)
[2023-12-30 10:09] LABS: Hematocrit 21.1 % (42.0-54.0); Hemoglobin 6.7 g/dL (14.0-18.0)
[2023-12-30 12:44] LABS: Band Neutrophils Absolute 0.4 10^3/uL (0.0-0.3); Segmented Neut Absolute Manual 5.04 10^3/uL (1.4-6.5)
[2023-12-30 12:45] LABS: Eosinophils Absolute Manual 0.21 10^3/uL (0.00-0.70); Metamyelocytes Absolute Manual 0.07; Monocytes Absolute Manual 0.79 10^3/uL (0.30-0.80); Myelocytes Absolute Manual 0.21
[2023-12-30 12:47] LABS: Anisocytosis 1+; Poikilocytosis 1+
[2023-12-30 12:48] LABS: Ovalocytes 1+
== END 2023-12-30 09:17 | disposition home or self-care (01) ==
LOC: LAB 09:19
PROVIDERS: PCP Family Medicine; Visit Provider Internal Medicine Hematology & Oncology
DX: D46.9 Myelodysplastic syndrome, unspecified (principal)
CPT/HCPCS: 36415; 85007; 85027; 86850; 86900; 86901

== ENCOUNTER 2023-12-31 11:17 | Emergency (ER) | payer MEDICARE, SELFPAY ==
[2023-12-31 11:27] VITALS: BP 115/61; PULSE 64; TEMP 36.9; O2SAT 99; BMI 31.6
[2023-12-31] MEDS: METHYLPREDNISOLONE SOD SUCC PF 40 MG/ML VIAL IM (12:05)
[2023-12-31] MEDS: FAMOTIDINE 20 MG TABLET PO (12:05)
[2023-12-31 12:21] VITALS: O2SAT 99
[2023-12-31 12:23] VITALS: BP 109/62; PULSE 56; O2SAT 99
--- NOTE | 2023-12-31 13:08 | ED_ITS ---
HPI - Allergic Reaction General Chief complaint: Allergic Reaction Stated complaint: FULL BODY RASH Time Seen by Provider: 12/31/23 11:32 Source: patient Mode of arrival: Wheelchair Limitations: physical limitation History of Present Illness HPI narrative: The patient have a history of myelodysplastic syndrome who gets a blood transfusion daily including today, he has been having rash for the last 2 weeks that is itchy all over the abdomen and left lower back as well as the hip area, no new medications started the patient has not had any chemotherapy No fever no chills and the patient just had a blood workup done yesterday Related Data Home Medications ?Medication ?Instructions ?Recorded ?Confirmed aspirin 81 mg tablet,delayed 81 mg PO QPM 02/03/23 12/31/23 release dapagliflozin propanediol 10 mg 10 mg PO DAILY 02/03/23 12/31/23 tablet (Farxiga) omeprazole 40 mg capsule,delayed 40 mg PO DAILY 02/03/23 12/31/23 release terazosin 5 mg capsule 5 mg PO QPM 02/03/23 12/31/23 atorvastatin 20 mg tablet 20 mg PO QDAY 04/23/23 12/31/23 blood sugar diagnostic ([facility] 04/23/23 12/31/23 Ultra Test strips) cholecalciferol (vitamin D3) 25 25 mcg PO DAILY 07/09/23 12/31/23 mcg (1,000 unit) tablet (Vitamin D3) cyclobenzaprine 5 mg tablet 5 mg PO BID PRN muscle spasm 07/09/23 12/31/23 glipizide 5 mg tablet, extended 5 mg PO QPM 07/09/23 12/31/23 release 24 hr (Glucotrol XL) metoprolol succinate 25 mg 25 mg PO DAILY 07/09/23 12/31/23 tablet,extended release 24 hr (Toprol XL) metolazone 5 mg tablet 5 mg PO .weekly 11/27/23 12/31/23 Previous Rx's ?Medication ?Instructions ?Recorded bumetanide 1 mg tablet 1 mg PO QAM #0 tabs 07/10/23 febuxostat 40 mg tablet 40 mg PO DAILY 30 days #30 tabs 07/10/23 lisinopril 2.5 mg tablet 2.5 mg PO DAILY 30 days #30 tabs 07/10/23 cephalexin 500 mg capsule 500 mg PO Q12H 7 days #14 caps 10/01/23 famotidine 20 mg tablet (Pepcid) 20 mg PO BID #10 tabs 12/31/23 prednisone 20 mg tablet 40 mg (2 x 20 mg) PO DAILY 5 days 12/31/23 #10 tabs Allergies Allergy/AdvReac Type Severity Reaction Status Date / Time bee venom protein (honey bee) Allergy Severe Hives Verified 12/31/23 11:27 carvedilol Allergy Hives Verified 12/31/23 11:27 Review of Systems ROS Status of ROS 10 or more systems reviewed and unremark able except as noted in history and below [facility] Medical History (Updated 12/31/23 @ 12:01 by Gianna Sarabia MD) Syncopal episodes ?R55 - Syncope and collapse (ICD-10) Serous otitis media ?H65.90 - Unspecified nonsuppurative otitis media, unspecified ear (ICD-10) Chronic respiratory failure with hypoxia ?J96.11 - Chronic respiratory failure with hypoxia (ICD-10) Hearing loss ?H91.90 - Unspecified hearing loss, unspecified ear (ICD-10) Prostate cancer ?C61 - Malignant neoplasm of prostate (ICD-10) Kidney cysts ?N28.1 - Cyst of kidney, acquired (ICD-10) Bone marrow failure ?D61.9 - Aplastic anemia, unspecified (ICD-10) Angina pectoris ?I20.9 - Angina pectoris, unspecified (ICD-10) Pulmonary hypertension ?I27.20 - Pulmonary hypertension, unspecified (ICD-10) PVC (premature ventricular contraction) ?I49.3 - Ventricular premature depolarization (ICD-10) Sleep apnea ?G47.30 - Sleep apnea, unspecified (ICD-10) Colon polyp ?K63.5 - Polyp of colon (ICD-10) Gout ?M10.9 - Gout, unspecified (ICD-10) GERD (gastroesophageal reflux disease) ?K21.9 - Gastro-esophageal reflux disease without esophagitis (ICD-10) Extremity edema ?R60.0 - Localized edema (ICD-10) 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 - Cystic disease of liver (ICD-10) Chronic renal impairment ?N18.9 - Chronic kidney disease, unspecified (ICD-10) Stage III chronic kidney disease ?N18.30 - Chronic kidney disease, stage 3 unspecified (ICD-10) Bradycardia ?R00.1 - Bradycardia, unspecified (ICD-10) Benign prostatic hyperplasia ?N40.0 - Benign prostatic hyperplasia without lower urinary tract symptoms (ICD-10) 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 - Hypertensive chronic kidney disease with stage 1 through stage 4 chronic kidney disease, or unspecified chronic kidney disease (ICD-10) NYHA Class III cardiovascular function Renal insufficiency ?N28.9 - Disorder of kidney and ureter, unspecified (ICD-10) History of blood transfusion ?Z92.89 - Personal history of other medical treatment (ICD-10) MDS (myelodysplastic syndrome) ?D46.9 - Myelodysplastic syndrome, unspecified (ICD-10) Type 2 myocardial infarction ?I21.A1 - Myocardial infarction type 2 (ICD-10) Decompensated heart failure ?I50.9 - Heart failure, unspecified (ICD-10) Pancytopenia ?D61.818 - Other pancytopenia (ICD-10) Tricuspid regurgitation ?I07.1 - Rheumatic tricuspid insufficiency (ICD-10) Mitral valve regurgitation ?I34.0 - Nonrheumatic mitral (valve) insufficiency (ICD-10) GI (gastrointestinal bleed) ?K92.2 - Gastrointestinal hemorrhage, unspecified (ICD-10) Chronic diastolic heart failure ?I50.32 - Chronic diastolic (congestive) heart failure (ICD-10) Atrial fibrillation ?I48.91 - Unspecified atrial fibrillation (ICD-10) CAD (coronary artery disease) ?I25.10 - Atherosclerotic heart disease of false pass coronary artery without angina pectoris (ICD-10) Decreased appetite ?R63.0 - Anorexia (ICD-10) Dyspnea on exertion ?R06.09 - Other forms of dyspnea (ICD-10) On home oxygen therapy ?Z99.81 - Dependence on supplemental oxygen (ICD-10) Hyperkalemia ?E87.5 - Hyperkalemia (ICD-10) Epistaxis ?R04.0 - Epistaxis (ICD-10) CHF (congestive heart failure) ?I50.9 - Heart failure, unspecified (ICD-10) Myelodysplastic disease ?C94.6 - Myelodysplastic disease, not elsewhere classified (ICD-10) Anemia ?D64.9 - Anemia, unspecified (ICD-10) Hyperlipemia ?E78.5 - Hyperlipidemia, unspecified (ICD-10) Diabetes ?E11.9 - Type 2 diabetes mellitus without complications (ICD-10) Transfusion of blood during current hospitalisation Hypertension ?I10 - Essential (primary) hypertension (ICD-10) 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, valve unspecified (ICD-10) Anemia ?D64.9 - Anemia, unspecified (ICD-10) Surgical History (Updated 10/20/23 @ 14:09 by Kiah Lind NP) History of esophagogastroduodenoscopy (EGD) ?Z98.890 - Other specified postprocedural states (ICD-10) History of colonoscopy ?Z98.890 - Other specified postprocedural states (ICD-10) History of cardiac catheterization ?Z98.890 - Other specified postprocedural states (ICD-10) H/O right heart catheterization ?Z98.890 - Other specified postprocedural states (ICD-10) History of nasal cauterization ?Z98.890 - Other specified postprocedural states (ICD-10) S/P arterial stent ?Z95.9 - Presence of cardiac and vascular implant and graft, unspecified (ICD-10) History of heart artery stent ?Z95.5 - Presence of coronary angioplasty implant and graft (ICD-10) Family History Father Family history of stroke Mother Family history of stroke Family history of hypertension Family history of CHF (congestive heart failure) Brother Family history of diabetes mellitus Sister Family history of cancer Social History (Updated 10/21/23 @ 07:07 by Anna Uribe) Within the past year, how often did you have a drink containing alcohol: never Score interpretation: A score less than 4 is consistent with normal alcohol consumption. 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 level of school completed/degree received: high school graduate Are you now , , , , never or living with a partner: In a typical week, how many times do you talk on the telephone with family, friends, or neighbors: 3 or more times per week How often do you get together with friends or relatives: 3 or more times per week How often do you attend temple or episcopalian services: 1-3 times per year Little interest or pleasure in doing things: not at all Feeling down, depressed, or hopeless: not at all Feel stressed/tense/nervous/anxious/difficulty sleeping: not at all Life stressors: unknown source of stress Do you think of yourself as: straight/heterosexual Gender Identity: male Exam Narrative Exam Narrative: Nurses notes and vital signs reviewed and patient is not hypoxic. General: Well-appearing and in no apparent distress. Skin: Warm, dry, no pallor noted. No rash. Head: Normocephalic, atraumatic. Neck: Supple, non-tender. Eye: Pupils are equal, round and EOMI. No scleral icterus. Ears, Nose, Mouth, and Throat: TM are clear, no nasal mucosal hypertrophy. Oral mucosa is moist, no posterior oropharynx erythema, uvula is mid-line Cardiovascular: Regular Rate and Rhythm without murmur, gallop or rub. Respiratory: No accessory muscle use or respiratory distress. Lungs are clear to auscultation, no wheezing, rales or rhonchi Chest Wall: no tenderness Back: No midline thoracic or lumbar vertebral tenderness. No CVA tenderness Musculoskeletal: normal ROM, no calf or popliteal tenderness, no lower extremity edema/swelling GI: Abdomen is soft, the patient abdomen is distended there is arthritis but there is no tenderness Neurological: A&O x4. No cranial nerve dysfunction observed. No truncal ataxia. Moves all extremities. Sensation intact. Psychiatric: Cooperative and interactive. Normal mood and affect. Skin examination showed that the patient have macular rash all over the lower abdomen as well as the hip area and the upper back Constitutional Vital Signs, click to edit/add: Last Vital Signs Temp 98.4 F 12/31/23 11:27 Pulse 56 L 12/31/23 12:23 Resp 24 H 12/31/23 12:23 BP 109/62 12/31/23 12:23 Pulse Ox 99 12/31/23 12:23 O2 Del Method Nasal Cannula 12/31/23 12:21 O2 Flow Rate 3 12/31/23 12:23 Course Vital Signs Vital signs: Vital Signs Temperature 98.4 F 12/31/23 11:27 Pulse Rate 64 12/31/23 11:27 Respiratory Rate 16 12/31/23 11:27 Blood Pressure 115/61 12/31/23 11:27 Pulse Oximetry 99 12/31/23 11:27 Oxygen Delivery Method Nasal Cannula 12/31/23 11:27 Oxygen Delivery Flow Rate 3 12/31/23 11:27 Temperature 98.4 F 12/31/23 11:27 Pulse Rate 56 L 12/31/23 12:23 Respiratory Rate 24 H 12/31/23 12:23 Blood Pressure 109/62 12/31/23 12:23 Pulse Oximetry 99 12/31/23 12:23 Oxygen Delivery Method Nasal Cannula 12/31/23 12:21 Oxygen Delivery Flow Rate 3 12/31/23 12:23 MDM - Allergic Reaction MDM Narrative Medical decision making narrative: The patient has had a blood workup done yesterday he have a history of chronic kidney disease and he received a blood transfusion regularly including today after his hemoglobin yesterday was low Right now the patient will be provided with a prednisone prescription for the next 5 days and he is to monitor his symptoms In case of any fever chills or any other complaint he is to come back to the ER in case of any worsening also he will come back to the ER The patient is to follow up with primary care physician in next 2-3 days or to return to the emergency department should any of the signs or symptoms worsen or new symptoms develop. The patient agrees with the following Diagnosis and Treatment plan and the patient will be discharged home. Discharge Plan Discharge Stand Alone Forms: Portal Instructions Chief Complaint: Allergic Reaction Clinical Impression: Rash Patient Disposition: Home, Self-Care Time of Disposition Decision: 12:01 Condition: Good Prescriptions / Home Meds: New prednisone 20 mg tablet 40 mg PO DAILY 5 Days Qty: 10 0RF famotidine [Pepcid] 20 mg tablet 20 mg PO BID Qty: 10 0RF No Action dapagliflozin propanediol [Farxiga] 10 mg tablet 10 mg PO DAILY omeprazole 40 mg capsule,delayed release(DR/EC) 40 mg PO DAILY Hold Instructions: Doctor's Order terazosin 5 mg capsule 5 mg PO QPM aspirin 81 mg tablet,delayed release (DR/EC) 81 mg PO QPM cephalexin 500 mg capsule 500 mg PO Q12H 7 Days Qty: 14 0RF Hold Instructions: Doctor's Order atorvastatin 20 mg tablet 20 mg PO QDAY (DME) OneTouch Ultra Test Strip MISCELLANEOUS glipizide [Glucotrol XL] 5 mg tablet extended release 24hr 5 mg PO QPM metoprolol succinate [Toprol XL] 25 mg tablet extended release 24 hr 25 mg PO DAILY Hold Instructions: nephrology consult cyclobenzaprine 5 mg tablet 5 mg PO BID PRN (Reason: muscle spasm) cholecalciferol (vitamin D3) [Vitamin D3] 25 mcg (1,000 unit) tablet 25 mcg PO DAILY lisinopril 2.5 mg tablet 2.5 mg PO DAILY 30 Days Qty: 30 0RF febuxostat 40 mg Tablet 40 mg PO DAILY 30 Days Qty: 30 0RF Hold Instructions: nephrology consult bumetanide 1 mg tablet 1 mg PO QAM Qty: 0 0RF metolazone 5 mg tablet 5 mg PO .weekly Print Language: Fijian Instructions: Acute Rash (ED) Referrals: Maxi Whaley MD [Primary Care Provider] - 1 week Discharge Date/Time: 12/31/23 12:25
== END 2023-12-31 12:25 | disposition home or self-care (01) ==
PROVIDERS: Emergency Provider Emergency Medicine; PCP Family Medicine
DX: R21 Rash and other nonspecific skin eruption (principal); Z87.891 Personal history of nicotine dependence; D46.9 Myelodysplastic syndrome, unspecified
CPT/HCPCS: 36430; 99284; J2919; P9016

== ENCOUNTER 2024-01-21 08:44 | Outpatient (RCR) | payer MEDICARE, SELFPAY ==
--- NOTE | 2023-12-31 08:38 | PC.NURSE ---
0820 Arrival per wheelchair to chair 3. alert oriented, weight obtained, assisted to recliner. Oxygen at 3 lpm nc, placed on hospital oxygen supply at 3 lpm nc. Heart tones regular at this time, lungs clear thruout posterior light, no edema noted. educated on s/s of transfusion rxn, ie chest flank, back pain shortness of breath itching etc to notify staff of any of these symptoms, verbalizes understanding. leaves at this time.
[2023-12-31] MEDS: DIPHENHYDRAMINE HCL 25 MG CAPSULE PO (08:40)
[2023-12-31] MEDS: ACETAMINOPHEN 325 MG TABLET 650 MG PO (08:40)
[2023-12-31] MEDS: 0.9 % SODIUM CHLORIDE 250 ML 10 ML IV (08:41)
[2023-12-31 08:43] VITALS: BP 110/59; PULSE 77; TEMP 36.3; O2SAT 96
--- NOTE | 2023-12-31 08:44 | PC.NURSE ---
prbc's initiated at 120 hr.
[2023-12-31 08:58] VITALS: BP 136/55; PULSE 55; TEMP 36.6; O2SAT 99
--- NOTE | 2023-12-31 09:05 | PC.NURSE ---
0900 prbc's infuse without any issues rate increased to 150 ml hr. eats bannana and drinking boost supplement
[2023-12-31 09:45] VITALS: BP 116/56; PULSE 52; TEMP 37
--- NOTE | 2023-12-31 09:45 | PC.NURSE ---
prbc's infusing, iv site clear. tolerateing well.
--- NOTE | 2023-12-31 11:09 | PC.NURSE ---
1100 prbc's infused ns flush began. 1110 ns flush completed, IV dc'd catheter intact, assisted to bathroom per wheelchair. Lungs remain clear no dyspnea. 1115 Released per wheelchair. with family.
[2024-01-06 09:21] LABS: Anion Gap 14.4; BUN Creatinine Ratio 26.8; Calcium 9.1 mg/dL (8.5-10.1); Carbon Dioxide 31.5 mmol/L (21.0-32.0); Chloride 95 mmol/L (98-107); Estimated GFR (African America 31 (>=60); Estimated GFR (Non-African Ame 25 (>=60); Glucose 268 mg/dL (74-106); Potassium 4.9 mmol/L (3.5-5.1); Sodium 136 mmol/L (136-145)
[2024-01-06 09:26] LABS: Hemoglobin 7.5 g/dL (14.0-18.0); Mean Corpuscular HGB Conc 31.5 g/dL (29.9-35.2); Mean Corpuscular Hemoglobin 31.9 pg (25.9-34.0); Mean Corpuscular Volume 101.3 fL (80.0-94.0); Mean Platelet Volume 14.2 fL (9.5-13.5); Platelet Count 155 10^3/uL (150-450); Red Blood Count 2.35 10^6/uL (4.70-6.10); Red Cell Distribution Width 21.2 % (11.0-15.0); White Blood Count 12.8 10^3/uL (4.0-11.0)
[2024-01-06 09:35] LABS: Hematocrit 23.8 % (42.0-54.0)
[2024-01-06 11:21] LABS: Band Neutrophils Absolute 0.5 10^3/uL (0.0-0.3); Lymphocytes Absolute Manual 0.25 10^3/uL (1.20-3.80); Monocytes Absolute Manual 0.64 10^3/uL (0.30-0.80); Segmented Neut Absolute Manual 11.26 10^3/uL (1.4-6.5)
[2024-01-06 11:22] LABS: Myelocytes Absolute Manual 0.12
[2024-01-06 11:23] LABS: Anisocytosis 1+; Ovalocytes 1+; Poikilocytosis 1+
[2024-01-13 11:56] LABS: Mean Corpuscular HGB Conc 32.5 g/dL (29.9-35.2); Mean Corpuscular Hemoglobin 33.2 pg (25.9-34.0); Mean Platelet Volume 13.6 fL (9.5-13.5); Platelet Count 113 10^3/uL (150-450); Red Blood Count 2.02 10^6/uL (4.70-6.10); Red Cell Distribution Width 22.6 % (11.0-15.0); White Blood Count 6.7 10^3/uL (4.0-11.0)
[2024-01-13 12:03] LABS: Anion Gap 11.3; BUN Creatinine Ratio 23.3; Calcium 8.9 mg/dL (8.5-10.1); Carbon Dioxide 30.5 mmol/L (21.0-32.0); Chloride 100 mmol/L (98-107); Estimated GFR (African America 29 (>=60); Estimated GFR (Non-African Ame 24 (>=60); Glucose 76 mg/dL (74-106); Potassium 4.8 mmol/L (3.5-5.1); Sodium 137 mmol/L (136-145)
[2024-01-13 12:14] LABS: Hemoglobin 6.7 g/dL (14.0-18.0)
[2024-01-13 12:15] LABS: Hematocrit 20.6 % (42.0-54.0)
[2024-01-13 12:27] LABS: Band Neutrophils Absolute 0.1 10^3/uL (0.0-0.3); Basophils Abs Manual 0.06 10^3/uL (0.00-0.10); Lymphocytes Absolute Manual 1.07 10^3/uL (1.20-3.80); Macrocytosis 1+; Metamyelocytes Absolute Manual 0.06; Monocytes Absolute Manual 1.74 10^3/uL (0.30-0.80); Segmented Neut Absolute Manual 3.48 10^3/uL (1.4-6.5)
[2024-01-13 12:28] LABS: Anisocytosis 1+
[2024-01-13] MEDS: ACETAMINOPHEN 325 MG TABLET 650 MG PO (12:55)
[2024-01-13] MEDS: DIPHENHYDRAMINE HCL 25 MG CAPSULE PO (12:55)
[2024-01-13 13:00] VITALS: BP 97/57; PULSE 61; TEMP 36.2; O2SAT 98
[2024-01-13 13:34] VITALS: BP 97/57; PULSE 61; TEMP 36.2; O2SAT 98
[2024-01-13 13:52] VITALS: BP 97/57; PULSE 57; TEMP 36.6
[2024-01-13 13:54] VITALS: BP 108/60; PULSE 64; TEMP 36.3
--- NOTE | 2024-01-13 13:57 | PC.NURSE ---
5498 educated on s/s of rxn verbalizes understanding
--- NOTE | 2024-01-13 13:59 | PC.NURSE ---
1400 Assisted to bathroom.
--- NOTE | 2024-01-13 14:33 | PC.NURSE ---
tolerating transfusion without any s/s of reaction. doing in recliner, feet elevated sister and at chairside.
--- NOTE | 2024-01-13 15:53 | PC.NURSE ---
l1530 PRBC's infused, ns flush initiated 1545 NS flush completed. IV dc'd cottonball and coban applied to site. Tolerated well. Lungs clear posteriorly post transfusion. Released per wheelchair to family.
[2024-01-20 15:29] LABS: Mean Corpuscular HGB Conc 31.9 g/dL (29.9-35.2); Mean Corpuscular Hemoglobin 32.7 pg (25.9-34.0); Mean Corpuscular Volume 102.5 fL (80.0-94.0); Mean Platelet Volume 13.2 fL (9.5-13.5); Platelet Count 158 10^3/uL (150-450); Red Blood Count 2.02 10^6/uL (4.70-6.10); Red Cell Distribution Width 21.4 % (11.0-15.0); White Blood Count 7.8 10^3/uL (4.0-11.0)
[2024-01-20 15:32] LABS: Hematocrit 20.7 % (42.0-54.0); Hemoglobin 6.6 g/dL (14.0-18.0)
[2024-01-20 16:07] LABS: Band Neutrophils Absolute 0.3 10^3/uL (0.0-0.3); Lymphocytes Absolute Manual 0.54 10^3/uL (1.20-3.80); Monocytes Absolute Manual 1.71 10^3/uL (0.30-0.80); Segmented Neut Absolute Manual 5.07 10^3/uL (1.4-6.5)
[2024-01-20 16:08] LABS: Anisocytosis 1+; Hypochromasia 1+; Macrocytosis 1+; Metamyelocytes Absolute Manual 0.15
[2024-01-21] MEDS: DIPHENHYDRAMINE HCL 25 MG CAPSULE PO (08:47)
[2024-01-21] MEDS: ACETAMINOPHEN 325 MG TABLET 650 MG PO (08:47)
[2024-01-21 09:19] VITALS: BP 104/61; PULSE 75; TEMP 36.8; O2SAT 93
--- NOTE | 2024-01-21 09:23 | PC.NURSE ---
0900 arrival ambulatory to chair 1, alert oriented. oxugen at 4 lpm nc. switched to [facility] portable oxygen tank. 0910IV initiated rt upper armwith #22 inch catheter, tolerated well. 0915 Respirations with ease, lungs clear to auscultation. heart tones regular at this time no pretibial edema noted. 0925 prbc's initiated. instructed on s/s of reaction, ie chest back, or flank pain. itching etc, verbalizes understanding
[2024-01-21 09:35] VITALS: BP 100/60; PULSE 64; TEMP 36.3
--- NOTE | 2024-01-21 09:57 | PC.NURSE ---
0925 prbc's infusing without any difficulty. rate increased to 240 ml/hr.
--- NOTE | 2024-01-21 10:06 | PC.NURSE ---
tolerating transfusion without any issues. sister visits with patient. drinks boost and eats a banana
[2024-01-21 10:35] VITALS: BP 94/56; PULSE 63; TEMP 36.9; O2SAT 95
--- NOTE | 2024-01-21 11:13 | PC.NURSE ---
normal saline infused. IV dc'd, to bathroom per wheelchair.
== END 2024-01-23 10:46 | disposition home or self-care (01) ==
LOC: INF 08:44
PROVIDERS: PCP Family Medicine; Visit Provider Internal Medicine Hematology & Oncology
DX: D46.9 Myelodysplastic syndrome, unspecified (principal); D46.20 Refractory anemia with excess of blasts, unspecified; N18.4 Chronic kidney disease, stage 4 (severe); D63.1 Anemia in chronic kidney disease
CPT/HCPCS: 36415; 36430; 80048; 85007; 85027; 86850; 86900; 86901; G0463; P9016

== ENCOUNTER 2024-02-03 14:14 | Emergency (ER) | payer MEDICARE, SELFPAY ==
[2024-02-03 14:20] VITALS: BP 97/50; PULSE 71; TEMP 36.7; O2SAT 99; BMI 30.1
--- NOTE | 2024-02-03 14:30 | CT_ITS ---
[address] [address] Patient Name: SANDIP BROUSSARD MRN: [id number] date: 1940 Sex: M Assigned Patient Location: ER Current Patient Location: ER Accession/Order Number: [id number] Exam Date: 02/03/2024 15:00 Report Date: 02/03/2024 15:30 At the request of: TARSHA MARIE Procedure: CT pelvis wo con PROCEDURE: CT lumbar spine wo con, CT pelvis wo con COMPARISON: None. HISTORY: fall TECHNIQUE: Axial, Coronal, and Sagittal CT images obtained without IV contrast. Dose reduction techniques were achieved by using automated exposure control and/or adjustment of mA and/or kV according to patient size and/or use of iterative reconstruction technique. LUMBAR SPINE: FINDINGS: PARASPINAL AREA: Normal with no visible mass. DISCS: Multilevel disc space narrowing, moderate to severe L4-L5 and L5-S1 with disc/osteophyte complexes. BONES: Normal alignment of the lumbar vertebral bodies with no acute fracture or spondylolisthesis. Moderate degenerative spondylosis, severe at L4-L5. Mild diffuse facet osteoarthropathy. Multiple foci of sclerosis, benign enostosis are favored OTHER: Extensive atherosclerosis. CT/CT pelvis wo con IMPRESSION: Moderate to severe diffuse degenerative changes No acute traumatic abnormality PELVIS: FINDINGS: URINARY BLADDER: No visible focal wall thickening, lesion, or calculus. LYMPH NODES: No adenopathy. BOWEL: Moderate colonic diverticulosis. Nonobstructive bowel gas pattern PELVIC ORGANS: No visible mass. Pelvic organs appropriate for patient age. ANTERIOR WALL: No hernia. BONES: No bone lesion or fracture. 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 Extensive atherosclerosis IMPRESSION: No acute traumatic abnormality Electronically authenticated by: JOSIE MIRAMONTES Date: 02/03/2024 15:30
--- NOTE | 2024-02-03 14:30 | CT_ITS ---
[address] [address] Patient Name: SANDIP BROUSSARD MRN: [id number] date: 1940 Sex: M Assigned Patient Location: ER Current Patient Location: ER Accession/Order Number: [id number] Exam Date: 02/03/2024 15:00 Report Date: 02/03/2024 15:30 At the request of: TARSHA MARIE Procedure: CT lumbar spine wo con PROCEDURE: CT lumbar spine wo con, CT pelvis wo con COMPARISON: None. HISTORY: fall TECHNIQUE: Axial, Coronal, and Sagittal CT images obtained without IV contrast. Dose reduction techniques were achieved by using automated exposure control and/or adjustment of mA and/or kV according to patient size and/or use of iterative reconstruction technique. LUMBAR SPINE: FINDINGS: PARASPINAL AREA: Normal with no visible mass. DISCS: Multilevel disc space narrowing, moderate to severe L4-L5 and L5-S1 with disc/osteophyte complexes. BONES: Normal alignment of the lumbar vertebral bodies with no acute fracture or spondylolisthesis. Moderate degenerative spondylosis, severe at L4-L5. Mild diffuse facet osteoarthropathy. Multiple foci of sclerosis, benign enostosis are favored OTHER: Extensive atherosclerosis. CT/CT lumbar spine wo con IMPRESSION: Moderate to severe diffuse degenerative changes No acute traumatic abnormality PELVIS: FINDINGS: URINARY BLADDER: No visible focal wall thickening, lesion, or calculus. LYMPH NODES: No adenopathy. BOWEL: Moderate colonic diverticulosis. Nonobstructive bowel gas pattern PELVIC ORGANS: No visible mass. Pelvic organs appropriate for patient age. ANTERIOR WALL: No hernia. BONES: No bone lesion or fracture. 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 Extensive atherosclerosis IMPRESSION: No acute traumatic abnormality Electronically authenticated by: JOSIE MIRAMONTES Date: 02/03/2024 15:30
--- NOTE | 2024-02-03 14:41 | ED.GENADUL1 ---
HPI HPI - General Adult General Chief complaint: Back Pain/Injury Stated complaint: BACK/HIP PAIN/ FALL Time Seen by Provider: 02/03/24 14:16 Source: patient and family Mode of arrival: Wheelchair Limitations: no limitations History of Present Illness HPI narrative: Patient presents to ED complaining of right hip and right low back pain. About a week ago he fell. He was on the porch and was coming up the steps when he lost his balance and fell backwards onto his back. No loss of consciousness. reports he was just stubborn and did not want to come in. They are here today for some blood work and talked to the family doctor who said to come into the ER for evaluation since the right hip and right low back were still continuing to hurt. Patient is alert and oriented and at baseline. His blood pressure is a little bit low which is chronic for him. When they were in the room they did receive a phone call from his recent lab draws, hemoglobin is 6.9. He does get weekly IV blood transfusions and was scheduled for tomorrow morning to get his blood transfusion however they asked if we could just do it in the ER while he is here today. They also reported that his blood pressure is chronically low with sometimes 80 systolic and that is very normal for him. Patient otherwise reports that he is at baseline, no headache no chest pain or shortness of breath that is new for him. Related Data Home Medications ?Medication ?Instructions ?Recorded ?Confirmed aspirin 81 mg tablet,delayed 81 mg PO QPM 02/03/23 12/31/23 release dapagliflozin propanediol 10 mg 10 mg PO DAILY 02/03/23 12/31/23 tablet (Farxiga) omeprazole 40 mg capsule,delayed 40 mg PO DAILY 02/03/23 12/31/23 release terazosin 5 mg capsule 5 mg PO QPM 02/03/23 12/31/23 atorvastatin 20 mg tablet 20 mg PO QDAY 04/23/23 12/31/23 blood sugar diagnostic (Formerly [facility], later [facility] 04/23/23 12/31/23 Ultra Test strips) cholecalciferol (vitamin D3) 25 25 mcg PO DAILY 07/09/23 12/31/23 mcg (1,000 unit) tablet (Vitamin D3) cyclobenzaprine 5 mg tablet 5 mg PO BID PRN muscle spasm 07/09/23 12/31/23 glipizide 5 mg tablet, extended 5 mg PO QPM 07/09/23 12/31/23 release 24 hr (Glucotrol XL) metoprolol succinate 25 mg 25 mg PO DAILY 07/09/23 12/31/23 tablet,extended release 24 hr (Toprol XL) metolazone 5 mg tablet 5 mg PO .weekly 11/27/23 12/31/23 Previous Rx's ?Medication ?Instructions ?Recorded bumetanide 1 mg tablet 1 mg PO QAM #0 tabs 07/10/23 febuxostat 40 mg tablet 40 mg PO DAILY 30 days #30 tabs 07/10/23 lisinopril 2.5 mg tablet 2.5 mg PO DAILY 30 days #30 tabs 07/10/23 cephalexin 500 mg capsule 500 mg PO Q12H 7 days #14 caps 10/01/23 famotidine 20 mg tablet (Pepcid) 20 mg PO BID #10 tabs 12/31/23 prednisone 20 mg tablet 40 mg (2 x 20 mg) PO DAILY 5 days 12/31/23 #10 tabs oxycodone-acetaminophen 5 mg-325 1 tab PO Q6H pain #14 tabs 02/03/24 mg tablet (Percocet) Allergies Allergy/AdvReac Type Severity Reaction Status Date / Time bee venom protein (honey bee) Allergy Severe Hives Verified 12/31/23 11:27 carvedilol Allergy Hives Verified 12/31/23 11:27 Opioid HPI Opioid Management Most Recent Opioid Data: No Data to Display Review of Systems ROS Status of ROS 10 or more systems reviewed and unremarkable except as noted in history and below [facility] Medical History (Updated 02/03/24 @ 18:03 by Jailyn Guerrier DO) Syncopal episodes ?R55 - Syncope and collapse (ICD-10) Serous otitis media ?H65.90 - Unspecified nonsuppurative otitis media, unspecified ear (ICD-10) Chronic respiratory failure with hypoxia ?J96.11 - Chronic respiratory failure with hypoxia (ICD-10) Hearing loss ?H91.90 - Unspecified hearing loss, unspecified ear (ICD-10) Prostate cancer ?C61 - Malignant neoplasm of prostate (ICD-10) Kidney cysts ?N28.1 - Cyst of kidney, acquired (ICD-10) Bone marrow failure ?D61.9 - Aplastic anemia, unspecified (ICD-10) Angina pectoris ?I20.9 - Angina pectoris, unspecified (ICD-10) Pulmonary hypertension ?I27.20 - Pulmonary hypertension, unspecified (ICD-10) PVC (premature ventricular contraction) ?I49.3 - Ventricular premature depolarization (ICD-10) Sleep apnea ?G47.30 - Sleep apnea, unspecified (ICD-10) Colon polyp ?K63.5 - Polyp of colon (ICD-10) Gout ?M10.9 - Gout, unspecified (ICD-10) GERD (gastroesophageal reflux disease) ?K21.9 - Gastro-esophageal reflux disease without esophagitis (ICD-10) Extremity edema ?R60.0 - Localized edema (ICD-10) 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 - Cystic disease of liver (ICD-10) Chronic renal impairment ?N18.9 - Chronic kidney disease, unspecified (ICD-10) Stage III chronic kidney disease ?N18.30 - Chronic kidney disease, stage 3 unspecified (ICD-10) Bradycardia ?R00.1 - Bradycardia, unspecified (ICD-10) Benign prostatic hyperplasia ?N40.0 - Benign prostatic hyperplasia without lower urinary tract symptoms (ICD-10) 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 - Hypertensive chronic kidney disease with stage 1 through stage 4 chronic kidney disease, or unspecified chronic kidney disease (ICD-10) NYHA Class III cardiovascular function Renal insufficiency ?N28.9 - Disorder of kidney and ureter, unspecified (ICD-10) History of blood transfusion ?Z92.89 - Personal history of other medical treatment (ICD-10) MDS (myelodysplastic syndrome) ?D46.9 - Myelodysplastic syndrome, unspecified (ICD-10) Type 2 myocardial infarction ?I21.A1 - Myocardial infarction type 2 (ICD-10) Decompensated heart failure ?I50.9 - Heart failure, unspecified (ICD-10) Pancytopenia ?D61.818 - Other pancytopenia (ICD-10) Tricuspid regurgitation ?I07.1 - Rheumatic tricuspid insufficiency (ICD-10) Mitral valve regurgitation ?I34.0 - Nonrheumatic mitral (valve) insufficiency (ICD-10) GI (gastrointestinal bleed) ?K92.2 - Gastrointestinal hemorrhage, unspecified (ICD-10) Chronic diastolic heart failure ?I50.32 - Chronic diastolic (congestive) heart failure (ICD-10) Atrial fibrillation ?I48.91 - Unspecified atrial fibrillation (ICD-10) CAD (coronary artery disease) ?I25.10 - Atherosclerotic heart disease of [place] coronary artery without angina pectoris (ICD-10) Decreased appetite ?R63.0 - Anorexia (ICD-10) Dyspnea on exertion ?R06.09 - Other forms of dyspnea (ICD-10) On home oxygen therapy ?Z99.81 - Dependence on supplemental oxygen (ICD-10) Hyperkalemia ?E87.5 - Hyperkalemia (ICD-10) Epistaxis ?R04.0 - Epistaxis (ICD-10) CHF (congestive heart failure) ?I50.9 - Heart failure, unspecified (ICD-10) Myelodysplastic disease ?C94.6 - Myelodysplastic disease, not elsewhere classified (ICD-10) Anemia ?D64.9 - Anemia, unspecified (ICD-10) Hyperlipemia ?E78.5 - Hyperlipidemia, unspecified (ICD-10) Diabetes ?E11.9 - Type 2 diabetes mellitus without complications (ICD-10) Transfusion of blood during current hospitalisation Hypertension ?I10 - Essential (primary) hypertension (ICD-10) 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, valve unspecified (ICD-10) Anemia ?D64.9 - Anemia, unspecified (ICD-10) Surgical History (Updated 10/20/23 @ 14:09 by Kiah Lind NP) History of esophagogastroduodenoscopy (EGD) ?Z98.890 - Other specified postprocedural states (ICD-10) History of colonoscopy ?Z98.890 - Other specified postprocedural states (ICD-10) History of cardiac catheterization ?Z98.890 - Other specified postprocedural states (ICD-10) H/O right heart catheterization ?Z98.890 - Other specified postprocedural states (ICD-10) History of nasal cauterization ?Z98.890 - Other specified postprocedural states (ICD-10) S/P arterial stent ?Z95.9 - Presence of cardiac and vascular implant and graft, unspecified (ICD-10) History of heart artery stent ?Z95.5 - Presence of coronary angioplasty implant and graft (ICD-10) Family History Father Family history of stroke Mother Family history of stroke Family history of hypertension Family history of CHF (congestive heart failure) Brother Family history of diabetes mellitus Sister Family history of cancer Social History (Updated 10/21/23 @ 07:07 by Anna Uribe) Within the past year, how often did you have a drink containing alcohol: never Score interpretation: A score less than 4 is consistent with normal alcohol consumption. Smoking status: Former smoker Non-prescribed substance use: denies use Previous occupational history: [employer] Highest level of school completed/degree received: high school graduate Are you now , , , , never or living with a partner: In a typical week, how many times do you talk on the telephone with family, friends, or neighbors: 3 or more times per week How often do you get together with friends or relatives: 3 or more times per week How often do you attend gnosticist or bahai services: 1-3 times per year Little interest or pleasure in doing things: not at all Feeling down, depressed, or hopeless: not at all Feel stressed/tense/nervous/anxious/difficulty sleeping: not at all Life stressors: unknown source of stress Do you think of yourself as: straight/heterosexual Gender Identity: male Exam Narrative Exam Narrative: General: alert, no acute distress Cardiovascular: regular rate and rhythm, normal peripheral perfusion. Respiratory: Lungs Diminished bilaterally but at baseline, respirations non labored Patient is on his home O2 Extremities: Tenderness to palpation in the right SI joint area right side of lumbar paraspinal area and right lateral hip. Pain with flexion of the right hip. No numbness tingling or weakness in the right leg. Neurological: oriented x 4, LOC appropriate for age. Constitutional Vital Signs, click to edit/add: Last Vital Signs Temp 98.2 F 02/03/24 17:10 Pulse 68 02/03/24 18:04 Resp 18 02/03/24 18:04 BP 111/56 02/03/24 18:04 Pulse Ox 98 02/03/24 18:04 O2 Del Method Nasal Cannula 02/03/24 14:20 O2 Flow Rate 3 02/03/24 14:20 Course Vital Signs Vital signs: Vital Signs Temperature 98.0 F 02/03/24 14:20 Pulse Rate 71 02/03/24 14:20 Respiratory Rate 20 02/03/24 14:20 Blood Pressure 97/50 02/03/24 14:20 Pulse Oximetry 99 02/03/24 14:20 Oxygen Delivery Method Nasal Cannula 02/03/24 14:20 Oxygen Delivery Flow Rate 3 02/03/24 14:20 Temperature 98.2 F 02/03/24 17:10 Pulse Rate 68 02/03/24 18:04 Respiratory Rate 18 02/03/24 18:04 Blood Pressure 111/56 02/03/24 18:04 Pulse Oximetry 98 02/03/24 18:04 Oxygen Delivery Method Nasal Cannula 02/03/24 14:20 Oxygen Delivery Flow Rate 3 02/03/24 14:20 Medical Decision Making MDM Narrative Medical decision making narrative: Patient's lumbar CT and pelvis CT showed no acute fracture. Only degenerative changes. Most likely sprain and strain from falling onto his back. He did receive his 1 unit of blood here in the ED and was stable the entire time. He does get Benadryl before he receives blood which was given here in the ED. He requested something for his hip and back pain and did feel better after the morphine. They also requested something stronger at home for pain so I wrote a prescription for Percocet. He is on Tylenol with codeine at home so I told him to hold that and use the Percocet as it should provide a little bit more pain relief. Patient was wheeled out to the car in no acute distress continue outpatient management and follow-up as directed. Differential Diagnosis Differential Diagnosis: Fracture sprain strain anemia Medical Records Medical records reviewed: Yes I reviewed the patient's medical records Lab Data Lab results reviewed: Yes I reviewed the patient's lab results Labs: Lab Results 02/03/24 Range/Units 14:12 Blood Type A Positive Antibody Screen Negative Crossmatch See Detail Imaging Data CT scan - abdomen: Radiologist's impression: ITS Impressions Lumbar Spine CT 02/03/24 14:30 IMPRESSION: Moderate to severe diffuse degenerative changes No acute traumatic abnormality PELVIS: FINDINGS: URINARY BLADDER: No visible focal wall thickening, lesion, or calculus. LYMPH NODES: No adenopathy. BOWEL: Moderate colonic diverticulosis. Nonobstructive bowel gas pattern PELVIC ORGANS: No visible mass. Pelvic organs appropriate for patient age. ANTERIOR WALL: No hernia. BONES: No bone lesion or fracture. 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 Extensive atherosclerosis IMPRESSION: No acute traumatic abnormality Electronically authenticated by: JOSIE MIRAMONTES Date: 02/03/2024 15:[address] 02/03/24 14:30 IMPRESSION: Moderate to severe diffuse degenerative changes No acute traumatic abnormality PELVIS: FINDINGS: URINARY BLADDER: No visible focal wall thickening, lesion, or calculus. LYMPH NODES: No adenopathy. BOWEL: Moderate colonic diverticulosis. Nonobstructive bowel gas pattern PELVIC ORGANS: No visible mass. Pelvic organs appropriate for patient age. ANTERIOR WALL: No hernia. BONES: No bone lesion or fracture. 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 Extensive atherosclerosis IMPRESSION: No acute traumatic abnormality Electronically authenticated by: JOSIE MIRAMONTES Date: 02/03/2024 15:30 Discharge Plan Discharge Stand Alone Forms: Portal Instructions Chief Complaint: Back Pain/Injury Clinical Impression: Back pain, Anemia, Acute hip pain Patient Disposition: Home, Self-Care Time of Disposition Decision: 18:03 Condition: Good Mode of Transportation: Private Vehicle Prescriptions / Home Meds: New oxycodone-acetaminophen [Percocet] 5-325 mg tablet 1 tab PO Q6H Qty: 14 0RF No Action dapagliflozin propanediol [Farxiga] 10 mg tablet 10 mg PO DAILY omeprazole 40 mg capsule,delayed release(DR/EC) 40 mg PO DAILY Hold Instructions: Doctor's Order terazosin 5 mg capsule 5 mg PO QPM aspirin 81 mg tablet,delayed release (DR/EC) 81 mg PO QPM cephalexin 500 mg capsule 500 mg PO Q12H 7 Days Qty: 14 0RF Hold Instructions: Doctor's Order atorvastatin 20 mg tablet 20 mg PO QDAY (DME) OneTouch Ultra Test Strip MISCELLANEOUS glipizide [Glucotrol XL] 5 mg tablet extended release 24hr 5 mg PO QPM metoprolol succinate [Toprol XL] 25 mg tablet extended release 24 hr 25 mg PO DAILY Hold Instructions: nephrology consult cyclobenzaprine 5 mg tablet 5 mg PO BID PRN (Reason: muscle spasm) cholecalciferol (vitamin D3) [Vitamin D3] 25 mcg (1,000 unit) tablet 25 mcg PO DAILY lisinopril 2.5 mg tablet 2.5 mg PO DAILY 30 Days Qty: 30 0RF febuxostat 40 mg Tablet 40 mg PO DAILY 30 Days Qty: 30 0RF Hold Instructions: nephrology consult bumetanide 1 mg tablet 1 mg PO QAM Qty: 0 0RF metolazone 5 mg tablet 5 mg PO .weekly prednisone 20 mg tablet 40 mg PO DAILY 5 Days Qty: 10 0RF famotidine [Pepcid] 20 mg tablet 20 mg PO BID Qty: 10 0RF Print Language: Slovak Instructions: Back Pain (ED), Hip Pain (ED) Referrals: Maxi Whaley MD [Physician] - 1 week
[2024-02-03 15:51] VITALS: BP 106/60; PULSE 69; TEMP 36.8
[2024-02-03] MEDS: DIPHENHYDRAMINE HCL 25 MG CAPSULE PO (15:57)
[2024-02-03 16:10] VITALS: BP 119/75; PULSE 65; TEMP 36.7
[2024-02-03 17:10] VITALS: BP 108/76; PULSE 66; TEMP 36.8
[2024-02-03] MEDS: MORPHINE SULFATE 4 MG/ML VIAL IV (17:59)
[2024-02-03 18:04] VITALS: BP 111/56; PULSE 68; O2SAT 98
== END 2024-02-03 18:15 | disposition home or self-care (01) ==
PROVIDERS: Emergency Provider Emergency Medicine; PCP Nurse Practitioner Family
DX: M25.551 Pain in right hip (principal); M54.9 Dorsalgia, unspecified; D64.9 Anemia, unspecified; Z91.81 History of falling; Z87.891 Personal history of nicotine dependence; Z99.81 Dependence on supplemental oxygen
CPT/HCPCS: 36415; 36430; 72131; 72192; 86850; 86900; 86901; 86923; 96374; 99285; J2270; P9016

== ENCOUNTER 2024-02-10 00:02 | Inpatient (IN) | payer MEDICARE, SELFPAY ==
[2024-02-10] VITALS (44 sets, daily range): BP systolic 90–128; BP diastolic 54–75; PULSE 66–100; TEMP 36.6–36.9; O2SAT 85–100; BMI 29.4; BMI 30.9
--- OUTSIDE RECORDS SUMMARY | 2024-02-10 00:13 | XMS_ITS | CCD ---
Author Organization [facility] Care Team Providers Care Bruise Trimmer Name Role Phone MYLENE ANDREW Unavailable Unavailable Flash Pearl Unavailable Unavailable Evette Sheriff Unavailable Unavailable Flash Pearl Unavailable Unavailable MYLENE ANDREW Unavailable Unavailable Flash Pearl Unavailable Unavailable Evette Sheriff Unavailable Unavailable Flash Pearl Unavailable Unavailable Flash Pearl Primary Care Provider Flash Pearl MD Primary Care Provider [phone] Sheng Gomez MD Unavailable Asher Hummel MD Unavailable Michelle DREDGE MATE.FRINGE WEAVER, Wilfred Unavailable Anh HEALY, Angle Unavailable [phone] KELSEY RAMIREZ Admitting Unavailable SELF, REFERRED Referring Unavailable FLASH PEARL Primary Care Unavailable RAMOS, LUIS Attending Unavailable Flash Pearl MD Primary Care Provider Sheng Gomez MD Unavailable Asher Humeml MD Unavailable [phone] Michelle DREDGE MATE.FRINGE WEAVER, Wilfred Unavailable Anh RN, Angle Unavailable Flash Pearl MD Primary Care Provider [phone] Asher Hummel MD Unavailable Anh HEALY, Angle Unavailable Flash Pearl MD Primary Care Provider Flash Pearl MD Primary Care Provider Sheng Gomez MD Unavailable Estephanie SEN, Asher Unavailable [phone] Michelle DREDGE MATE.RAMONA, Wilfred Unavailable [phone] Anh HEALY, Angle Unavailable MISC, DR SORIA Attending Unavailable MISC, DR SORIA Admitting Unavailable REQUEST, NONE LISTED Primary Care Unavaila ble MISC, DR SORIA Attending Unavailable PEARL ., DR FLASH Holden Primary Care Unavailable MISC, DR SORIA Admitting Unavailable MISC, DR SORIA Consulting Unavailable ABHYANKAR, ASHER Consulting Unavailable FLAKITA ., MARICRUZ Attending Unavailable FLAKITA ., MARICRUZ Admitting Unavailable PEARL ., DR FLASH Holden Procedure Practitioner Madhavi drummond REQUEST, NONE LISTED Primary Care Unavaila ble PEARL ., DR FLASH Holden Consulting Unavailable [place], DR JOSIE Rowe Consulting Unavailable ZIEBER, DR [...] Attending Unavailable MISC, DR SORIA Consulting Unavailable ESTEPHANIE, ASHER Consulting Unavailable REQUEST, DR DENIS LISTED Primary Care Unavaila ble ABAZA, DR GARZA Consulting Unavailable MISC, DR SORIA Admitting Unavailable MISC, DR DOCTOR Attending Unavailable ABHYANKAR, ASHER Consulting Unavailable ABHYANKAR, ASHER Attending Unavailable ABHYANKAR, ASHER Admitting Unavailable REQUEST, DR NONE LISTED Primary Care Unavaila ble ABHYANKAR, ASHER Consulting Unavailable MISC, DR DOCTOR Attending Unavailable MISC, DR SORIA Admitting [...] SORIA Consulting Unavailable ABHYANKAR, ASHER Consulting Unavailable Jacquelin Barton. Primary Care Physician VAISHALI MACHADO Referring Unavailable PEARL, FLASH Holden Primary Care Unavailable MD Jacquelin Barton Primary Care Provider [phone] JIGAR Marie Emergency Provider Rocío Ram Unavailable Unavailable Jason SEN, Sheng Garduno Unavailable [phone] Anh HEALY, Angle Unavailable Caryl Marie N Attending Unavailable Davide, Caryl N Admitting Unavailable Ross, Jacquelin E Primary Care Unavailable TIMMIS, BERNARDA H Attending Unavailable TIMMIS, BERNARDA H Attending Unavailable ROSS, JACQUELIN E Referring Unavailable TIMMIS, BERNARDA H Attending Unavailable ROSS, JACQUELIN E Referring Unavailable SANTANA PHILLIPS Attending Unavailable Ross, Jacquelin E. Attending Unavailable Ross, Jacquelin E. Attending Unavailable Ross, Jacquelin E. Referring Unavailable DOElena R Attending Unavailable DOElena R Attending Unavailable PEARL FLASH E Attending Unavailable Ross, Jacquelin E. Attending Unavailable Ross, Jacquelin E. Attending Unavailable Ross, Jacquelin E. Attending Unavailable Ross, Jacquelin E. Attending Unavailable Ross, Jacquelin E. Admitting Unavailable Ross, Jacquelin E. Attending Unavailable Ross, Jacquelin E. Attending Unavailable Ross, Jacquelin E. Admitting Unavailable Ross, Jacquelin E. Attending Unavailable Ross, Jacquelin E. Admitting Unavailable Ross, Jacquelin E. Attending Unavailable Earl, APPAREL MANAGER Malinda L Admitting Unavailable Earl, APPAREL MANAGER Malinda L Attending Unavailable Earl, APPAREL MANAGER Malinda L Attending Unavailable Earl, APPAREL MANAGER Malinda L Admitting Unavailable Ross, Jacquelin E. Referring Unavailable Al-Marrawi, Mhd Yaser Attending Unavailabl e Al-Marrawi, Mhd Yaser Admitting Unavailabl e Al-Marrawi, Mhd Yaser Attending Unavailabl e Ross, Jacquelin E. Admitting Unavailable Ross, Jacquelin E. Attending Unavailable Ross, Jacquelin E. Attending Unavailable Mick, Jacquelin E. Attending Unavailable FLASH PEARL Attending Unavailable Flash Pearl MD Primary Care Provider OUMOU MANDEL Attending Unavailable FLASH PEARL Primary Care Unavailable FLASH PEARL Primary Care Unavailable ROWDY CRAWFORD Attending Unavailable CURT FARAH Attending Unavailable FLASH PEARL Primary Care Unavailable RAYO QUINTERO Attending Unavailable MOUKASHENG CHAPMAN Attending Unavailable ZARAKAREN Garcia Attending Unavailable DEACON MÉNDEZ Attending Unavailable ZARAKAREN Garcia Attending Unavailable MOUKASHENG CHAPMAN Attending Unavailable MOUKASHENG CHAPMAN Attending Unavailable Allergies Allergy Classification Reported Allergen(s) Allergy Type Date of Onset Reaction(s) Facility (2 sources) carvedilol; Translations: [Coreg] Drug Allergy 6 unknown [facility] Repository (20 sources) Bee/Wasp/Ant venom Propensity to adverse reactions 2 [facility] (20 sources) carvedilol; Translations: [carvedilol] Drug Allergy 0 Hives, Weal (disorder) [facility] (1 source) Bee/Wasp/Ant venom; Translations: [Bee/Wasp Stings] Propensity to adverse reactions (disorder) 2 [facility] Repository (1 source) carvedilol Drug Allergy 1 [facility] Repository (1 source) bee venom Drug allergy (disorder) [facility] Repository (6 sources) Metoprolol; Translations: [metoprolol] Drug Allergy [facility] (6 sources) Bee pollen; Translations: [BEE POLLEN] [facility] Work Phone: (2 sources) bee venom protein (honey bee) Allergy to substance 4 [facility] (1 source) Sulfonamide -class of antibiotic-; Translations: [Sulfonamide -class of antibiotic-] Propensity to adverse reactions (disorder) [facility] Repository (1 source) OTHER; Translations: [OTHER] Propensity to adverse reactions (disorder) 2 [facility] [place] Repository Medications Current Medications Medication Drug Class(es) Dates Sig (Normalized) Sig (Original) acetaminophen 300 mg / codeine phosphate 30 mg oral tablet (5 sources) Opioid Agonist Start: 10-15-2023 take 1 tablet by mouth every eight hours Acetaminophen-Co deine Active 1 TAB PO Every 8 hours November 11, 2023 12:00am amoxicillin 875 mg / clavulanate 125 mg oral tablet (7 sources) Penicillin-class Antibacterial Start: 11-17-2022 amoxicillin-clav ulanic acid (AUGMENTIN) 875-125 mg per tablet aspirin 81 mg delayed release oral tablet (20 sources) Platelet Aggregation Inhibitor, Nonsteroidal Anti-inflammatory Drug Start: 01-20-2024 take 81 mg by mouth twice daily Aspirin Active 81 MG PO Twice daily January 20, 2024 2:22pm Start: 11-11-2023 End: 01-20-2024 take 81 mg by mouth once daily Aspirin Discontinued 81 MG PO Daily November 11, 2023 12:00am January 20, 2024 2:25pm Start: 11-20-2022 take 1 tablet by adrian th once daily aspirin 81 mg Oral EC Tab 81 mg = 1 tab(s), Oral, Daily, Refills(s) 0 Start Date: 11/20/22 Status: Ordered Start: 11-20-2022 take 1 tablet by adrian th twice daily aspirin 81 mg Oral EC [...] (20 sources) HMG-CoA Reductase Inhibitor Start: take 20 mg by mouth once daily Atorvastatin Active 20 MG PO Daily November 11, 2023 12:00am Comment on above: Take 1 tablet by adrian th daily at bedtime. bumetanide 2 mg oral tablet (20 sources) Loop Diuretic Start: take 2 mg by mouth twice daily Bumetanide Active 2 MG PO Twice daily November 11, 2023 12:00am Start: 02-24-2023 take 1 mg by mouth once daily bumetanide 2 mg Tab 1 mg = 0.5 tab(s), Oral, Daily, # 180 tab(s), Refills(s) 1, Pharmacy: [facility] [id number], 170.2, cm, 02/13/23 15:53:00 EDT, Height/Length Dosing, 102.4, kg, 02/13/23 15:53:00 EDT, Weight Dosing Start Date: 02/24/23 Status: Ordered Start: 02-24-2023 take 1 tablet by adrian th twice daily bumetanide 2 mg Tab 2 mg = 1 tab(s), Oral, BID, # 180 tab(s), Refills(s) 1, Pharmacy: [facility] [id number], 170.2, cm, 02/13/23 15:53:00 EDT, Height/Length Dosing, 102.4, kg, 02/13/23 15:53:00 EDT, Weight Dosing Start Date: 02/24/23 Status: Ordered Start: 12-30-2021 take 1 tablet by adrian th once daily in the morning bumetanide (BUMEX) 1 mg tablet Take by mouth every morning. 0 12/30/2021 Active [...] 2 mg by mouth e very evening. [facility] (20 sources) Start: 01-06-2024 End: 01-05-2025 [facility] OINT[facility] Apply to affected area two times a day. 30 g 01/06/2024 01/05/2025 Active Start: 10-15-2021 End: 10-15-2022 [facility] NASAL OINTMENT Apply to affected area twice daily. 30 g 10/15/2021 10/15/2022 Start: 10-15-2021 End: 10-15-2022 [facility] NASAL OINTMENT Apply to affected area twice daily. 30 g 10/15/2021 10/15/2022 Active Comment on above: Apply to affected ar ea twice daily. cholecalciferol 0.025 mg oral capsule (20 sources) Vitamin D Start: 11-11-19 take 25 ug by mouth once daily Cholecalciferol (Vitamin D3) Active 25 MCG PO Daily November 11, 2023 12:00am Start: 11-24-2012 cholecalcifero l (VITAMIN D3) 1,000 unit tab tablet 1,000 Units once daily. Only taking 500 units 0 11/24/2012 Active Comment on above: 1,000 Units once mario ly. 1,000 Units once mario ly. Only taking 500 units colchicine 0.6 mg oral capsule (20 sources) Start: 11-11-2023 take 0.6 mg by mouth three times daily Colchicine Active 0.6 MG PO Three times daily November 11, 2023 12:00am Start: 02-24-2023 take 1 tablet by adrian th three times daily colchicine 0.6 mg Tab 0.6 mg = 1 tab(s), Oral, TID, # 270 tab(s), Refills(s) 1, Pharmacy: [facility] [id number], 170.2, cm, 02/13/23 15:53:00 EDT, Height/Length Dosing, [...] (20 sources) Sodium-Glucose Cotransporter 2 Inhibitor Start: 11-27-19 take 1 tablet by mouth once daily Dapagliflozin Propanediol (Farxiga) 10 mg tablet Active 10 MG PO Daily November 11, 2023 12:00am Comment on above: Take 10 mg by mouth daily with breakfast. Dexamethasone (1 source) Corticosteroid Start: 03-10-20 dexamethasone 2 mg, Daily, Refills(s) 0 Start Date: 03/10/23 Status: Ordered febuxostat 40 mg oral tablet (6 sources) Xanthine Oxidase Inhibitor Start: 11-09-19 take 40 mg by mouth once daily Febuxostat Active 40 MG PO Daily November 11, 2023 12:00am Start: 10-13-2023 take 1 tablet by adrian once daily febuxostat 40 mg oral tablet 40 mg, Oral, Daily, # 90 EA, Refills(s) 1, Pharmacy: [facility] [id number], 170, cm, 10/13/23 13:19:00 EDT, Height/Length Dosing, 92.3, kg, 10/13/23 13:19:00 EDT, Weight Dosing Start Date: 10/13/23 Status: Ordered ferrous sulfate 325 mg oral tablet (15 sources) End: 11-29-2021 ferrous sulfate (IRON) 325 mg (65 mg iron) tablet Take 325 mg by mouth every 48 hours. 0 11/29/2021 Discontinued (Changing Therapy/Dosage Form) Comment on above: Take 325 mg by mouth every 48 hours. Freestyle Carmen 2 Flash Glucose Monitoring 14 Day System (Sensor) (2 sources) Start: 03-10-2023 Freestyle Libr e 2 Flash Glucose Monitoring 14 Day System (Sensor) Freestyle Carmen 2 Flash Glucose Monitoring 14 Day System (Sensor), See Instructions, 2 EA, 0, Freestyle Carmen Flash Glucose Monitoring 14 Day System (Sensor). Replace sensor every 14 days., [facility] [id number], Supply, 170.2, cm, 03/10/23 14:59:00 EDT, Height/Length Dosing, 101.3, kg, 03/10/23 14:59:00 EDT, Weight Dosing Start Date: 03/10/23 Status: Ordered Start: 03-10-2023 Freestyle Libr e 2 Flash Glucose Monitoring 14 Day System (Sensor) Freestyle Carmen 2 Flash Glucose Monitoring 14 Day System (Sensor), See Instructions, 2 EA, 0, Freestyle Carmen Flash Glucose Monitoring 14 Day System (Sensor). Replace sensor every 14 days., [facility] [id number], Supply, 170.2, cm, 03/10/23 14:59:0... Start Date: 03/10/23 Status: Ordered Freestyle Carmen Flash 2 Glucose Monitoring 14 Day System (Garibaldi) (2 sources) Start: 03-10-2023 Freestyle Libr e Flash 2 Glucose Monitoring 14 Day System (Garibaldi) Freestyle Carmen Flash 2 Glucose Monitoring 14 Day System (Garibaldi), See Instructions, 1 EA, 0, Freestyle Carmen Flash Glucose Monitoring 14 Day System (Garibaldi), [facility] [id number], Supply, 170.2, cm, 03/10/23 14:59:00 EDT, Height/Length Dosing, 101.3, kg, 03/10/23 14:59:00 EDT, Weight Dosing Start Date: 03/10/23 Status: Ordered Start: 03-10-2023 Freestyle Libr e Flash 2 Glucose Monitoring 14 Day System (Garibaldi) Freestyle Carmen Flash 2 Glucose Monitoring 14 Day System (Garibaldi), See Instructions, 1 EA, 0, Freestyle Carmen Flash Glucose Monitoring 14 Day System (Garibaldi), [facility] [id number], Supply, 170.2, cm, 03/10/23 14:59:00 EDT, Height/Length Dosing, 10... Start Date: 03/10/23 Status: Ordered glipiZIDE 5 mg oral tablet (20 sources) Sulfonylurea Start: 01-20-2024 take 5 mg by mouth twice daily Glipizide Active 5 MG PO Twice daily January 20, 2024 12:00am Start: 08-25-2023 take 1 tablet by adrian th twice daily glipiZIDE 5 mg ER Tab See Instructions, TAKE 1 TABLET BY MOUTH TWICE A DAY, # 180 tab(s), Refills(s) 0, Pharmacy: [facility] [id number], 170, cm, 07/15/23 14:05:00 EST, Height/Length Dosing, 95.4, kg, 07/15/23 14:05:00 EST, Weight Dosing Start Date: 08/25/23 Status: Ordered Start: 02-24-2023 take 1 tablet by adrian th twice daily glipiZIDE 5 mg ER Tab 5 mg = 1 tab(s), Oral, BID, # 180 tab(s), Refills(s) 1, Pharmacy: [id number], 170.2, cm, 02/13/23 15:53:00 EDT, Height/Length Dosing, [...] 5 mg by mouth o nce daily. lidocaine 0.05 mg/mg medicated patch (5 sources) Antiarrhythmic, Amide Local Anesthetic Start: 11-11-2023 apply 1 dose topically once daily Lidocaine (Lidoderm) 5 % adhesive patch,medicated Active 1 PATCH TOPICAL Daily November 11, 2023 12:00am leave on most painful area for up to 12 hrs apply 1 dose transde rmal route every twenty-four hours lidocaine (LIDODERM) 5 % Apply 1 Patch a s directed every 24 hours. 0 Active metOLazone 2.5 mg oral tablet (13 sources) Thiazide-like Diuretic Start: 11-26-2023 End: 02-24-2024 Metolazone Active 2.5 MG PO As Directed January 20, 2024 12:00am On Friday Start: 11-20-2022 End: 11-26-2023 take 1 tablet by mouth once daily metolazone 2.5 mg Tab 2.5 mg = 1 tab(s), Oral, Daily, # 90 tab(s), Refills(s) 1, Pharmacy: [facility] [id number], 170.2, cm, 02/13/23 15:53:00 EDT, Height/Length Dosing, 102.4, kg, 02/13/23 15:53:00 EDT, Weight Dosing Start Date: 02/24/23 Status: Ordered Comment on above: Take 2.5 mg by mouth once daily. 24 hr metoprolol succinate 25 mg extended release oral tablet (20 sources) beta-Adrenergic Angel Start: 02-24-2023 metoprolol 25 mg ER Tab 12.5 mg = 0.5 tab(s), Oral, Daily, # 45 tab(s), Refills(s) 1, Pharmacy: [facility] [id number], 170.2, cm, 02/13/23 15:53:00 EDT, Height/Length Dosing, 102.4, kg, 02/13/23 15:53:00 EDT, Weight Dosing Start Date: 02/24/23 Status: Ordered Start: 11-25-2021 take 25 mg by mouth once daily Metoprolol Succinate Active 25 MG PO Daily November 11, 2023 12:00am Start: 11-25-2021 take 1 tablet by adrian th once daily metoprolol succinate ER (TOPROL XL) 50 mg 24 hr tablet Take 50 mg by mouth once daily. 0 11/25/2021 Active Comment on above: Take 50 mg by mouth once daily. Take 25 mg by mouth once daily. mupirocin 0.02 mg/mg topical ointment (4 sources) RNA Synthetase Inhibitor Antibacterial Start: mupirocin (BACTROBAN) 2 % ointment Apply to affected area three times a day. 1 g 0 10/27/2023 Active Comment on above: Apply to affected ar ea three times a day. omeprazole 40 mg delayed release oral capsule (20 sources) Proton Pump Inhibitor Start: take 40 mg by mouth once daily Omeprazole Active 40 MG PO Daily November 11, 2023 12:00am Comment on above: Take 40 mg by mouth once daily. ondansetron 8 mg oral tablet (20 sources) Serotonin-3 Receptor Antagonist Start: 022 take 1 tablet by mouth every eight hours as needed ondansetron (ZOFRAN) 8 mg tablet Take 1 tablet by mouth every 8 hours as needed for nausea/vomiting. 90 tablet 1 05/20/2022 Active Comment on above: Take 1 tablet by adrian th every 8 hours as needed for nausea/vomiting. oxymetazoline hydrochloride 0.5 mg/ml nasal spray (4 sources) Start: oxymetazoline (AFRIN, OXYMETAZOLINE,) 0.05 % nasal spray Use 2 Sprays in the nose two times a day. 22 mL 0 10/27/2023 Active Comment on above: Use 2 Sprays in the nose two times a day. prochlorperazine 10 mg oral tablet (20 sources) Phenothiazine Start: take 1 tablet by mouth every six hours as needed prochlorperazine (COMPAZINE) 10 mg tablet Take 1 tablet by mouth every 6 hours as needed. 100 tablet 1 05/20/2022 Active Comment on above: Take 1 tablet by adrian th every 6 hours as needed. Sennosides (Senna) 8.6 mg tablet (1 source) Start: take 2 tablets by mouth once daily at bedtime Sennosides (Senna) 8.6 mg tablet Active 17.2 MG PO Daily at bedtime January 20, 2024 12:00am sodium chloride-aloe vera (AYR SALINE) topical nasal gel (8 sources) Start: sodium chloride-aloe vera (AYR SALINE) topical nasal gel 1 application by INTRANASAL route as needed. 1 Each 4 10/27/2023 Active Start: 10-27-2023 sodium chlorid e-aloe vera (AYR SALINE) topical nasal gel 1 application by INTRANASAL route as needed. 1 Each 3 10/27/2023 Active Comment on above: 1 application by INT RANASAL route as needed. spironolactone 25 mg oral tablet (20 sources) Aldosterone Antagonist Start: 11-26-19 take 25 mg by mouth once daily Spironolactone Active 25 MG PO Daily November 11, 2023 12:00am Start: 01-14-2005 take 1 tablet by adrian th once daily in the morning ALDACTONE 25 MG ORAL TAB Take one(1) tablet daily in the morning. 90 3 01/14/2005 Active Comment on above: Take one(1) tablet d aily in the morning. Take 25 mg by mouth once daily. sucralfate 1000 mg oral tablet (20 sources) Aluminum Complex take 1 tablet by mouth four times daily sucralfate (CARAFATE) 1 gram tablet Take 1 g by mouth four times daily. 0 Active Comment on above: Take 1 g by mouth fo ur times daily. terazosin 5 mg oral tablet (20 sources) alpha-Adrenergic Angel Start: 11-11-2023 take 5 mg by mouth once daily Terazosin Active 5 MG PO Daily November 11, 2023 12:00am Start: 08-29-2022 terazosin (HYT RIN) 5 mg capsule Start: 04-28-2020 End: 07-08-2022 terazosin (HYTRIN) 5 mg caps ule 5 mg daily at bedtime. 0 04/28/2020 Active Comment on above: 5 mg daily at bedtim e. Take 5 mg by mouth d aily at bedtime. triamcinolone acetonide 1 mg/ml topical cream (1 source) Corticosteroid Start: 01-20-2024 Triamcinolone Acetonide Active 1 APPLIC TOPICAL Twice daily 80 January 20, 2024 12:00am Completed/Discontinued Medications Medication Drug Class(es) Dates Sig (Normalized) Sig (Original) amLODIPine 5 mg oral tablet (1 source) Dihydropyridine Calcium Channel Angel Start: 03-21-2020 amLODIPine (NORVASC) 5 mg tablet 10 mg every evening. 0 03/21/2020 Active Comment on above: 10 mg every evening. 12 hr buPROPion hydrochloride 150 mg extended release oral tablet (5 sources) Aminoketone Start: 01-12-2003 WELLBUTRIN SR 150MG TAB SA Take one(1) tablet daily. 0 0 01/12/2003 Active Comment on above: Take one(1) tablet d aily. chlorthalidone 25 mg oral tablet (5 sources) Thiazide-like Diuretic Start: 01-14-2005 take 1 tablet by mouth once daily in the morning CHLORTHALIDONE 25 MG ORAL TAB Take one(1) tablet daily in the morning. 90 3 01/14/2005 Active Comment on above: Take one(1) tablet d aily in the morning. ciprofloxacin 500 mg oral tablet (20 sources) Quinolone Antimicrobial Start: 11-25-2021 End: 07-08-2022 take 1 tablet by mouth once daily ciprofloxacin HCl (CIPRO) 500 mg tablet Take 500 mg by mouth once daily. 0 11/25/2021 07/08/2022 Discontinued Comment on above: Take 500 mg by mouth once daily. cloNIDine hydrochloride 0.1 mg oral tablet (5 sources) Central alpha-2 Adrenergic Agonist Start: 06-27-2005 CLONIDINE 0.1 MG TAB Indications: Other and unspecified hyperlipidemia , Chronic kidney disease, stage II (mild) , Essential hypertension, benign , Coronary atherosclerosis of unspecified type of vessel, [place] or graft Take one(1) tablet daily at bedtime. 90 3 06/27/2005 Active Comment on above: Take one(1) tablet d aily at bedtime. 24 hr dilTIAZem hydrochloride 180 mg extended release oral capsule (5 sources) Calcium Channel Angel Start: 01-14-2005 take 1 tablet by mouth once daily in the evening CARDIZEM CD 180 MG ORAL CP24 Take one(1) tablet daily in the evening. 90 3 01/14/2005 Active Comment on above: Take one(1) tablet d aily in the evening. ezetimibe 10 mg oral tablet (5 sources) Dietary Cholesterol Absorption Inhibitor Start: 01-14-2005 take 1 tablet by mouth once daily in the evening ZETIA 10 MG ORAL TAB Take one(1) tablet daily in the evening. 30 0 01/14/2005 Active Comment on above: Take one(1) tablet d aily in the evening. glimepiride 1 mg oral tablet (2 sources) Sulfonylurea Start: 11-11-2023 End: 01-20-2024 take 1 mg by mouth once daily Glimepiride Discontinued 1 MG PO Daily November 11, 2023 12:00am January 20, 2024 2:25pm lisinopril 2.5 mg oral tablet (20 sources) Angiotensin Converting Enzyme Inhibitor Start: 11-11-2023 End: 01-20-2024 take 2.5 mg by mouth once daily Lisinopril Discontinued 2.5 MG PO Daily November 11, 2023 12:00am January 20, 2024 2:12pm Start: 07-15-2023 take 4 tablets by mo [facility] twice daily lisinopril 2.5 mg Tab See Instructions, 10mg orally twice a day, Refills(s) 0 Start Date: 07/15/23 Status: Ordered Start: 02-24-2023 take 1 tablet by adrian twice daily lisinopril 10 mg Tab 10 mg = 1 tab(s), Oral, BID, # 90 tab(s), Refills(s) 1, Pharmacy: [facility] [id number], 170.2, cm, 02/13/23 15:53:00 EDT, Height/Length Dosing, [...] resume this medication after PCP follow up moexipril hydrochloride 15 mg oral tablet (5 sources) Start: 01-15-20 take 1 tablet by mouth once daily in the morning UNIVASC 15 MG ORAL TAB Take one(1) tablet daily in the morning. 90 3 01/14/2005 Active Comment on above: Take one(1) tablet d aily in the morning. NaCl 0.9% 1,000 mL (1 source) Start: 01-19-20 End: 01-19-20 NaCl 0.9% 1,000 mL omeprazole 40 mg / sodium bicarbonate 1680 mg powder for oral suspension (20 sources) Proton Pump Inhibitor End: 07-08-20 Omeprazole-Sodium Bicarbonate 40-1,680 mg pack Take by mouth. 0 07/08/2022 Discontinued Comment on above: Take by mouth. microencapsulated potassium chloride 20 meq extended release oral tablet (20 sources) Start: 02-25-20 take 1 tablet by mouth twice daily Potassium Chloride (Uwx-Qavw-Var M20) 20 mEq oral tablet, extended release 20 mEq = 1 tab(s), Oral, BID, # 180 tab(s), Refills(s) 1, Pharmacy: [facility] [id number], 170.2, cm, 02/13/23 15:53:00 EDT, Height/Length Dosing, 102.4, kg, 02/13/23 15:53:00 EDT, Weight Dosing Start Date: 02/24/23 Status: Ordered Start: 11-20-2022 take 1 tablet by adrian th twice daily Potassium Chloride (Yam-Hyxl-Gxx M20) 20 mEq oral tablet, extended release 20 mEq = 1 tab(s), Oral, BID, Refills(s) 0 Start Date: 11/20/22 Status: Ordered Start: 11-17-2022 KLOR-CON M20 2 0 mEq tablet Start: 12-15-2021 potassium chlo ride SR (MICRO-K) 10 mEq CR capsule Take 10 mEq by mouth once daily. 0 12/15/2021 Active Comment on above: Take 10 mEq by mouth once daily. 1000 ml sodium chloride 9 mg/ml injection (1 source) Start: 01-21-2022 End: 01-21-2022 NaCl 0.9% 500 mL iv bolus Start: 01-21-2022 End: 01-21-2022 NaCl 0.9% 500 mL iv bolus solifenacin succinate 5 mg oral tablet (4 sources) Cholinergic Muscarinic Antagonist End: 07-08-2022 take 2 tablets by mouth once daily solifenacin (VESICARE) 5 mg tablet Take 10 mg by mouth once daily. 0 07/08/2022 Discontinued Comment on above: Take 10 mg by mouth once daily. Vitamin D3 1000 intl units oral tablet (5 sources) Start: 03-25-2017 take 1 tablet by mouth once daily Vitamin D3 1000 intl units oral tablet 1,000 International_Unit = 1 tab(s), Oral, Daily, # 30 tab(s), Refills(s) 0 Start Date: 03/25/17 Status: Ordered Problems Active Problems Problem Classification Problem Date Documented Date Episodic/Chronic Acute and unspecified renal failure (9 sources) Unspecified kidney failure; Translations: [Renal failure [...] stage 2 (mild)] Onset: 06-27-2005 06-27-2005 Chronic Comment on above: noted in 10/09/2022 Oncology Consult Note page 13. added per OP CDI policy. Congestive heart failure; nonhypertensive (19 sources) Acute combined systolic and diastolic heart failure; Translations: [Acute combined systolic (congestive) and diastolic (congestive) heart failure] Onset: 05-03-2022 Chronic Coronary atherosclerosis and other heart disease (20 sources) Coronary atherosclerosis; Translations: [Atherosclerotic heart disease of [place] coronary artery without angina pectoris] Onset: 01-13-2002 [...] Onset: 12-03-2022 Episodic Diabetes mellitus with complications (15 sources) Type 2 diabetes mellitus; Translations: [Type 2 diabetes mellitus with diabetic chronic kidney disease] Onset: 12-01-2022 Chronic Comment on above: linked DM with HLD p er OP CDI policy. Diabetes mellitus without complication (4 sources) Diabetes mellitus; Translations: [Type 2 diabetes mellitus without complications] Onset: 01-10-2023 09-02-2019 Chronic Disorders of lipid metabolism (20 sources) Hyperlipidemia; Translations: [Hyperlipidemia, unspecified] Onset: 01-13-2002 11-21-2003 Chronic Essential hypertension (20 sources) Benign essential hypertension; Translations: [Essential (primary) hypertension] Onset: 01-13-2002 11-21-2003 Chronic Genitourinary symptoms and ill-defined conditions (5 sources) Urge incontinence of urine 09-05-2020 Chronic Genitourinary symptoms and ill-defined conditions (11 sources) Microscopic hematuria; Translations: [Urgent desire to urinate] 09-02-2019 Episodic Gout and other crystal arthropathies (4 sources) Gout; Translations: [Gout, unspecified] 11-11-2023 Chronic Heart valve disorders (3 sources) Nonrheumatic mitral (valve) insufficiency; Translations: [NONRHEUMATIC MITRAL INSUFFICIENCY] Onset: 05-03-2022 Chronic Hyperplasia of prostate (5 sources) Benign prostatic hyperplasia; Translations: [Benign prostatic hypertrophy with outflow obstruction] 09-02-2019 Chronic Hypertension with complications and secondary hypertension (9 sources) Hypertensive heart disease with heart failure; Translations: [Hypertensive heart and chronic kidney disease with heart failure and stage 1 through stage 4 chronic kidney disease, or unspecified chronic kidney disease] Onset: 11-14-2022 Chronic Immunity disorders (1 source) Drug-induced immunodeficiency 07-14-2023 Chronic Comment on above: added per 07/11/2023 query response. Immunizations and screening for infectious disease (1 source) Needs influenza immunization; Translations: [Encounter for immunization] Episodic Malaise and fatigue (1 source) Other fatigue; Translations: [OTHER FATIGUE] Onset: 12-07-2022 Episodic Neoplasms of unspecified nature or uncertain behavior (20 sources) Myelodysplastic syndrome (clinical); Translations: [Myelodysplastic syndrome, unspecified] Onset: 05-29-2020 05-29-2020 Episodic Nutritional deficiencies (4 sources) Vitamin D deficiency; Translations: [Vitamin D deficiency, unspecified] 11-11-2023 Chronic Other aftercare (1 source) [employer] (current) use of aspirin; Translations: [PRISON CURRENT USE OF ASPIRIN] Onset: 12-11-2022 Episodic Other aftercare (1 source) Other pad extractor tender (current) drug therapy; Translations: [OTH SENIOR ACTUARIAL ANALYST CURRENT DRUG THERAPY] Onset: 12-11-2022 Episodic Other aftercare (1 source) director [employer] (current) use of oral hypoglycemic drugs; Translations: [SENIOR ACTUARIAL ANALYST USE ORAL HYPOGLYCEMIC DX] Onset: 12-11-2022 Episodic Other aftercare (2 sources) Encounter for change or removal of nonsurgical wound dressing; Translations: [Encounter for change or removal of nonsurgical wound dressing] Onset: 10-21-2023 Episodic Other diseases of kidney and ureters (5 sources) Cyst of kidney 09-07-2019 Episodic Other ear and sense organ disorders (20 sources) Mixed conductive AND sensorineural hearing loss; Translations: [Mixed conductive and sensorineural hearing loss, unilateral, left ear with restricted hearing on the contralateral side] Onset: 07-13-2021 07-13-2021 Chronic Other ear and sense organ disorders (1 source) Deafness of left ear; Translations: [Unspecified hearing loss, left ear] 01-20-2024 Chronic Other hematologic conditions (5 sources) Bone marrow disorder 01-06-2023 Episodic Other lower respiratory disease (1 source) Dyspnea, unspecified; Translations: [DYSPNEA UNSPECIFIED] Onset: 12-11-2022 Episodic Other lower respiratory disease (1 source) Hypoxemia; Translations: [Hypoxemia] 10-27-2023 Episodic Other male genital disorders (1 source) Disorder of penis 09-22-2023 Chronic Other nutritional; endocrine; and metabolic disorders (20 sources) 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 Other skin disorders (5 sources) Superficial folliculitis 10-19-2020 Episodic Other skin disorders (1 source) Eruption; Translations: [Rash and other nonspecific skin eruption] 01-20-2024 Episodic Other skin disorders (1 source) Rash and other nonspecific skin eruption; Translations: [Rash and other nonspecific skin eruption] 01-20-2024 Episodic Other upper respiratory disease (7 sources) Bleeding from nose; Translations: [Epistaxis] Onset: 03-14-2023 Episodic Otitis media and related conditions (1 source) Dysfunction of eustachian tube; Translations: [Other specified disorders of Eustachian tube, bilateral] Episodic Molly-; endo-; and myocarditis; cardiomyopathy (except that caused by tuberculosis or sexually transmitted disease) (2 sources) Cardiomyopathy in diseases classified elsewhere; Translations: [Cardiomyopathy in diseases classified elsewhere] Onset: 10-10-2023 Chronic Pneumonia (except that caused by tuberculosis or sexually transmitted disease) (1 source) Pneumonia, unspecified organism; Translations: [PNEUMONIA UNSPECIFIED ORGANISM] Onset: 12-11-2022 Episodic Pulmonary heart disease (10 sources) Pulmonary hypertension, unspecified; Translations: [Pulmonary hypertension] Onset: 05-03-2022 01-06-2023 Chronic Residual codes; unclassified (1 source) Obstructive sleep apnea (adult) (pediatric); Translations: [OBSTRUCTIVE SLEEP APNEA] Onset: 12-11-2022 Chronic Residual codes; unclassified (1 source) Do not resuscitate; Translations: [DO NOT RESUSCITATE] Onset: 12-11-2022 Episodic Residual codes; unclassified (3 sources) Left against medical advice; Translations: [Procedure and treatment not carried out because of patient's decision for other reasons] 10-17-2023 Episodic Respiratory failure; insufficiency; arrest (adult) (2 sources) Dependence on supplemental oxygen; Translations: [Chronic hypoxemic respiratory failure] Onset: 12-11-2022 07-14-2023 Chronic Comment on above: added per 07/11/2023 query response. Screening and history of mental health and [...] ANGPLSTY IMPLANT AND GRAFT] Onset: 3 Episodic Fluid and electrolyte disorders (4 sources) Hyperkalemia; Translations: [Hyperkalemia] Onset: 3 Episodic Gastrointestinal hemorrhage (20 sources) [...] Episodic Other upper respiratory disease (2 sources) Epistaxis; Translations: [Epistaxis] Onset: 2 Episodic Results Test Name Value Interpretation Reference Range Facil ity 37on 01-15-2024 37 Hold lisinopril for noted low blood pressure If b/p remains low and he becomes symptomatic- lightheaded/dizzy or passing out we will next decrease the metoprolol dose to 12.5 mg daily or 1/2 tab [facility] Office [facility]iton 01-15-2024 Follow-up visit [id number] Sandip Broussard 1940 M Date Provider Department Center 01/15/2024 120-ZARA, KAREN [facility] Family History Problem Relation Age of Onset Hypertension Mother Stroke Father Breast cancer Sister Family Status - Relation Status Age at Mother Father Sister Level of Service:07948 [place] OFFICE/OUTPATIENT ESTABLISHED MOD MDM 30 MIN [facility] CNOVon 01-06-2024 CNOV Office Visit (OTOLST ) SANDIP BROUSSARD ([id number]) 1940 M Date Time Provider Department 01/06/24 12:45 PM OUMOU MANDEL OTOLST During your visit today, we recorded the following information about you: Oumou Mandel MD 01/06/2024 12:58 PM Signed History: Sandip Broussard, a 83 year old male - on ASA, presents for f/up recurrent L nosebleeds. No bleed in last 6 wks since using [facility] ointment, trimmed nasal canula. On nasal O2. H/o recurrent L nosebleeds. Packed in hosp 02/14. S/p caut about '/p B T-tubes by outside ENT >1 y ago. L tube out. R tube removed 07/17. . Audio 07/17: L mixed, R SNHL. Sym bone line. SRT R/L 50/90, WRS R/L 68/34 PE: Alert; oriented; well-developed; no apparent distress. Normal voice; normal communication. Nose: patent, mild crusting L ant septum, mild congestion, no rhinorrhea. Assessment/Plan: H/o L epistaxis. Controlled with [facility] ointment, keeping canula trimmed. Rec humidification. F/up prn. Medical Decision Making: Problems: Low: Acute, uncomplicated illness or injury Risk: Low: Low risk from testing/treatment Medical Decision Making Level: 3 - Low Allergies As of Date: 01/06/2024 Noted Allergy Reaction BEE POLLEN 10/27/2023 4 - Hives COREG (CARVEDILOL) 05/29/2020 4 - Hives Date Reviewed: 01/06/2024 Reviewed by: Oumou Mandel MD - Fully Assessed Reason for Visit: Follow Up [171] Primary Visit Diagnosis:Epistaxis [R04.0] Order(s):[facility] NASAL OINTMENTApply to affected area two times a day.Disp: 30 gRfl: 11 Prescriptions as of 01/06/2024 - [facility] NASAL OINTMENT Apply to affected area two times a day. - acetaminophen-codeine (TYLENOL-COD #3) 300-30 mg per tablet Take 1 tablet by mouth q 8 HR. - febuxostat (ULORIC) 40 mg tab - lidocaine (LIDODERM) 5 % Apply 1 Patch as directed every 24 hours. - metOLazone (ZAROXOLYN) 2.5 mg tablet Take 1 tablet by mouth one time a week. - sodium chloride-aloe vera (AYR SALINE) topical nasal gel 1 application by INTRANASAL route as needed. - mupirocin (BACTROBAN) 2 % ointment Apply to affected area three times a day. - sodium chloride-aloe vera (AYR SALINE) topical nasal gel 1 application by INTRANASAL route as needed. - oxymetazoline (AFRIN, OXYMETAZOLINE,) 0.05 % nasal spray Use 2 Sprays in the nose two times a day. - amoxicillin-clavulani c acid (AUGMENTIN) 875-125 mg per tablet - KLOR-CON M20 20 mEq tablet - terazosin (HYTRIN) 5 mg capsule - ondansetron (ZOFRAN) 8 mg tablet Take 1 tablet by mouth every 8 hours as needed for nausea/vomiting. - prochlorperazine (COMPAZINE) 10 mg tablet Take 1 tablet by mouth every 6 hours as needed. - omeprazole (PRILOSEC) 40 mg capsule Take 40 mg by mouth once daily. - bumetanide (BUMEX) 1 mg tablet Take by mouth every morning. - potassium chloride SR (MICRO-K) 10 mEq CR capsule Take 10 mEq by mouth once daily. - FARXIGA 10 mg tablet Take 10 mg by mouth daily with breakfast. - metoprolol succinate ER (TOPROL XL) 25 mg 24 hr tablet Take 25 mg by mouth once daily. - spironolactone (ALDACTONE) 25 mg tablet Take 25 mg by mouth once daily. - aspirin 81 mg chewable tablet CHEW 1 TABLET BY MOUTH EVERY DAY - sucralfate (CARAFATE) 1 gram tablet Take 1 g by mouth four times daily. - atorvastatin (LIPITOR) 20 mg tablet Take 1 tablet by mouth daily at bedtime. - colchicine 0.6 mg tablet Take 0.6 mg by mouth as needed. As needed 1-2 times/week - lisinopril (ZESTRIL, PRINIVIL) 10 mg tablet Take 1 tablet by mouth once daily. Please resume this medication after PCP follow up - ONETOUCH DELICA PLUS LANCET 33 gauge - glipiZIDE (GLUCOTROL) 5 mg tablet Take 5 mg by mouth once daily. - ONETOUCH ULTRA BLUE TEST STRIP test strip - cholecalciferol (VITAMIN D3) 1,000 unit tab tablet 1,000 Units once daily. Only taking 500 units Problem List As Of Date 01/06/2024 Noted Resolved Essential hypertension, benign [I10] 01/13/2002 HYPERLIPIDEMIA NEC/NOS [E78.5] 01/13/2002 CORONARY ATHEROSCLER UNSPEC VESSEL [I25.10] 01/13/2002 ABNORMAL LIVER FUNCTION STUDY [R94.5] 08/10/2003 CHRONIC KIDNEY DISEASE, STAGE II (MILD) [N18.2] 06/27/2005 CKD (chronic kidney disease) stage 4, GFR 15-29*05/29/2020 MDS (myelodysplastic syndrome) (HCC) [D46.9] 05/29/2020 Iron deficiency anemia due to chronic blood los*06/15/2020 GIB (gastrointestinal bleeding) [K92.2] 07/06/2020 CRF (chronic renal failure), stage 4 (severe) (*08/23/2020 Anemia of chronic renal failure, stage 4 (sever*08/23/2020 Mixed conductive and sensorineural hearing loss*07/13/2021 Impairment of auditory discrimination of both e*07/13/2021 Malignant neoplasm of prostate (HCC) [C61] 08/24/2021 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 tr*08/24/2021 Hypotension due to hypovolemia [E86.1] 08/24/2021 Type 2 diabetes mellitus with stage 3 chronic k*12/01/2022 Prescriptions ordered this encounter Disp Refills S (more content not included)... [facility] CNOVon 11-26-2023 CNOV Office Visit (DOMINGO ) AARTISANDIP ([id number]) 1940 M Date Time Provider Department 11/26/23 10:00 AM ROWDY CRAWFORD During your visit today, we recorded the following information about you: Temperature Pulse Blood pressure Weight 98.3 degrees 64/minute 102/58 101.4 kg Height 1.676 m Rowdy Crawford DO 11/26/2023 11:01 AM Signed NEPHROLOGY CLINIC INITIAL VISIT PATIENT NAME: Sandip Broussard Consultation requested by self for an opinion regarding ckd. My final recommendations will be communicated back to the requesting physician by way of shared Medical record or letter to requesting physician via US mail. 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 -he's gain ~20lbs over the last few months and is most interested in ease of breathing and reduction in swelling. -I explained the challenging situation of repeated blood transfusions, hf, severe MR and ckd that this will be challening to ultimately control but we'll try Plan -Bumex extra pill on day of transfusions -Add weekly metolazone 2.5 -goal is ~1/2 lb per day weight loss, if after a week no better, move to [facility] metolazone. Despite the order existing he's not taken this drug before -repeat labs in 2 weeks in [place], printed orders given. -RTC in 3 months or so SUBJECTIVE chief complaint HPI: 82 year old mal hx of HTN, diastolic CHF, afib, CAD, DM, Prostate Cancer, MDS. Much of his care has been at [facility]. He's had ongoing and previous episodes of gi and nosebleeds on eliquis low dose requiring cauterization. He apparently has severe MR which he declined mitral clip. He's on continuous O2, he's having transfusion dependent MDS via hematology - per cardiology causing significant issues of volume overload last hgb was 7.4 in care everywhere. Apparently tried hospice but he fired them, he didn't want to stop his medication. Last Cr in care everywehre 2.1 - baseline unclear but between 1-2 over last few years and is quite dynamic. Had hyperkaelmia in september which he saw MFT [facility] Bumex: 1mg bid Adlactone + K supplement Farxiga Lisinopril 2.5 In [facility] records Cr trends below RENAL HX A1c Duration DM Duration HTN Urine Imaging Cr trend Current Outpatient Medications Medication Instructions amoxicillin-clavulani c acid (AUGMENTIN) 875-125 mg per tablet No dose, route, or frequency recorded. aspirin 81 mg chewable tablet CHEW 1 TABLET BY MOUTH EVERY DAY atorvastatin (LIPITOR) 20 mg, ORAL, AT BEDTIME bumetanide (BUMEX) 1 mg, ORAL, EVERY MORNING cholecalciferol (VITAMIN D3) 1,000 Units, DAILY, Only taking 500 units colchicine 0.6 mg, ORAL, NEEDED, As needed 1-2 times/week FARXIGA 10 mg, ORAL, DAILY WITH BREAKFAST glipiZIDE (GLUCOTROL) 5 mg, ORAL, DAILY KLOR-CON M20 20 mEq tablet No dose, route, or frequency recorded. lisinopril (ZESTRIL) 10 mg, ORAL, DAILY, Please resume this medication after PCP follow up metOLazone (ZAROXOLYN) 2.5 mg, ORAL, DAILY metoprolol succinate ER (TOPROL XL) 25 mg, ORAL, DAILY mupirocin (BACTROBAN) 2 % ointment TOPICAL, 3 TIMES DAILY omeprazole (PRILOSEC) 40 mg, ORAL, DAILY ondansetron (ZOFRAN) 8 mg, ORAL, EVERY 8 HOURS NEEDED ONETOUCH DELICA PLUS LANCET 33 gauge No dose, route, or frequency recorded. ONETOUCH ULTRA BLUE TEST STRIP test strip No dose, route, or frequency recorded. oxymetazoline (AFRIN, OXYMETAZOLINE,) 0.05 % nasal spray 2 Sprays, NASAL, 2 TIMES DAILY potassium chloride SR (MICRO-K) 10 mEq CR capsule 10 mEq, ORAL, DAILY prochlorperazine (COMPAZINE) 10 mg, ORAL, EVERY 6 HOURS NEEDED sodium chloride-aloe vera (AYR SALINE) topical nasal gel 1 application , INTRANASAL, NEEDED sodium chloride-aloe vera (AYR SALINE) topical nasal gel 1 application , INTRANASAL, NEEDED spironolactone (ALDACTONE) 25 mg, ORAL, DAILY sucralfate (CARAFATE) 1 g, ORAL, 4 TIMES DAILY terazosin (HYTRIN) 5 mg capsule No dose, route, or frequency recorded. Social History Tobacco Use Smoking status: Former Types: Pipe Quit date: 1994 Years since quittin.3 Passive exposure: Past Smokeless tobacco: Never Vaping Use Vaping Use: Never used Substance Use Topics Alcohol use: Not Currently Drug use: Not Currently No family history on file. PAST SURGICAL HISTORY Procedure Laterality Date COLONOSCOPY OBJECTIVE PHYSICAL EXAM: BP - standardized method Pulse 1 BP #1: 104/54 Pulse #1: 59 beats/min 2 BP #2 : 104/65 Pulse #2 : 67 beats/min 3 BP #3 : 99/54 Pulse #3 : 68 beats/min Average Average BP: 102/58 Average Pulse: 64 beats/min Orthostatic vit (more content not included)... Normal [facility] URINALYSIS, REFLEX MICROSCOP ICon 05-01-2024 Bilirubin Ql (U) Negative Negative [facility] Clarity (Unsp spec) Clear Clear [facility] Color (U) Light Yellow Yellow [facility] Glucose Test strip (U) [Mass/Vol] Negative Trace, Negative [facility] Hemoglobin Ql (U) Negative Negative, Trace [facility] Interpretation and review of laboratory results Normal [facility] Ketones Ql (U) Negative Negative, Trace [facility] Leukocyte esterase Test strip Ql (U) Negative Negative, 25 Chin/uL [facility] Nitrite Ql (U) Negative Negative [facility] pH (U) 6.5 [pH] 5.0 - 8.0 [facility] Protein (U) [Mass/Vol] Negative Trace, Negative [facility] Specific gravity (U) [Rel density] 1.009 1.005 - 1.030 [facility] Urobilinogen Ql (U) Normal Normal [facility] Bilirubin Ql (U) Negative Normal Negative [facility] Comment on above: Order Comment: Speci men Type: URINE SPECIMEN Ordering Facility: [facility] Address: [address] [place] [address] Performed By: #### L [id number] #### [facility] CLIA [id number] [address] [place] [address] [place] Clarity (Unsp spec) Clear Normal Clear [facility] Comment on above: Order Comment: Speci men Type: URINE SPECIMEN Ordering Facility: [facility] Address: [address] [place] [address] Performed By: #### L [id number] #### [facility] CLIA [id number] [address] [place] [address] [place] Color (U) Light Yellow Normal Yellow [facility] Comment on above: Order Comment: Speci men Type: URINE SPECIMEN Ordering Facility: [facility] Address: [address] [place] [address] Performed By: #### L [id number] #### [facility] CLIA [id number] [address] [place] [address] [place] Glucose Test strip (U) [Mass/Vol] Negative Normal Trace, Negative [facility] Comment on above: Order Comment: Speci men Type: URINE SPECIMEN Ordering Facility: [facility] Address: [address] [place] [address] Performed By: #### L [id number] #### [facility] CLIA [id number] [address] [place] [address] [place] Hemoglobin Ql (U) Negative Normal Negative, Trace Cl [facility] Comment on above: Order Comment: Speci men Type: URINE SPECIMEN Ordering Facility: [facility] Address: [address] [place] [address] Performed By: #### L [id number] #### [facility] CLIA [id number] [address] [place] [address] [place] Ketones Ql (U) Negative Normal Negative, Trace [facility] Comment on above: Order Comment: Speci men Type: URINE SPECIMEN Ordering Facility: [facility] Address: [address] [place] [address] Performed By: #### L [id number] #### [facility] CLIA [id number] [address] [place] [address] [place] Leukocyte esterase Test strip Ql (U) Negative Normal Negative, 25 Chin/uL [facility] Comment on above: Order Comment: Speci men Type: URINE SPECIMEN Ordering Facility: [facility] Address: [address] [place] [address] Performed By: #### L [id number] #### [facility] CLIA [id number] [address] [place] [address] [place] Nitrite Ql (U) Negative Normal Negative [facility] Comment on above: Order Comment: Speci men Type: URINE SPECIMEN Ordering Facility: [facility] Address: [address] [place] [address] Performed By: #### L [id number] #### [facility] CLIA [id number] [address] [place] [address] [place] pH (U) 6.5 [pH] Normal 5.0-8.0 [facility] Comment on above: Order Comment: Speci men Type: URINE SPECIMEN Ordering Facility: [facility] Address: [address] [place] [address] Performed By: #### L [id number] #### [facility] CLIA [id number] [address] [place] [address] [place] Protein (U) [Mass/Vol] Negative Normal Trace, Negative [facility] Comment on above: Order Comment: Speci men Type: URINE SPECIMEN Ordering Facility: [facility] Address: [address] [place] [address] Performed By: #### L [id number] #### [facility] CLIA [id number] [address] [place] [address] [place] Specific gravity (U) [Rel density] 1.009 Normal 1.005-1.030 [facility] Comment on above: Order Comment: Speci men Type: URINE SPECIMEN Ordering Facility: [facility] Address: [address] [place] [address] Performed By: #### L [id number] #### [facility] CLIA [id number] [address] [place] [address] [place] Urobilinogen Ql (U) Normal Normal Normal [facility] Comment on above: Order Comment: Speci men Type: URINE SPECIMEN Ordering Facility: [facility] Address: [address] [place] [address] Performed By: #### L [id number] #### [facility] CLIA [id number] [address] [place] [address] [place] 36on 11-19-2023 36 PT INFORMED [facility] 36 PER CHUY NEPHRO NEEDS TO ADJUST DIURETIC [facility] Consultation Noteon 11-14-19 24 Consultation Note [id number] .00TIFF [facility] Auth for Release of Medical Recordson 11-12-2023 Auth for Release of Medical Records [id number] .00TIFF [facility] Consultation Noteon 11-10-19 Consultation Note [id number] .00TIFF [facility] CNOVon 10-27-2023 CNOV Office Visit (OTOLLN ) SANDIP BROUSSARD ([id number]) 1940 M Date Time Provider Department 10/27/23 3:15 PM CURT FARAH During your visit today, we recorded the following information about you: Temperature 98.2 degrees Curt Farah MD 10/27/2023 4:17 PM Signed SECTION OF RHINOLOGY, SINUS AND SKULL BASE SURGERY [facility] [place] [facility] NOTE HPI: Patient is a 82 year old male who presents today for epistaxis. He was on Eliquis and had epistaxis return once he was done with medication. PAST MEDICAL HISTORY Diagnosis Date Anemia Anemia of chronic renal failure, stage 4 (severe) (HCC) 08/23/2020 Atrial fibrillation (HCC) Chronic kidney disease CRF (chronic renal failure), stage 4 (severe) (HCC) 08/23/2020 Diabetes mellitus (HCC) GI bleed Hypertension Iron deficiency anemia due to chronic blood loss 06/15/2020 Leukopenia Sleep apnea Thrombocytopenia (HCC) PAST SURGICAL HISTORY Procedure Laterality Date COLONOSCOPY No family history on file. Social History Tobacco Use Smoking status: Former Types: Pipe Quit date: 1994 Years since quittin.2 Passive exposure: Past Smokeless tobacco: Never Vaping Use Vaping Use: Never used Substance Use Topics Alcohol use: Not Currently Drug use: Not Currently Current Outpatient Medications Medication Sig Dispense Refill amoxicillin-clavulani c acid (AUGMENTIN) 875-125 mg per tablet KLOR-CON M20 20 mEq tablet metOLazone (ZAROXOLYN) 2.5 mg tablet Take 2.5 mg by mouth once daily. terazosin (HYTRIN) 5 mg capsule ondansetron (ZOFRAN) 8 mg tablet Take 1 tablet by mouth every 8 hours as needed for nausea/vomiting. 90 tablet 1 prochlorperazine (COMPAZINE) 10 mg tablet Take 1 tablet by mouth every 6 hours as needed. 100 tablet 1 omeprazole (PRILOSEC) 40 mg capsule Take 40 [...] 1 g by mouth four times daily. atorvastatin (LIPITOR) 20 mg tablet Take 1 tablet by mouth daily at bedtime. 90 tablet 0 colchicine 0.6 mg tablet Take 0.6 mg [...] after PCP follow up 90 tablet 3 No current facility-administered medications for this visit. ALLERGIES Allergen Reactions Bee Stings [Other] large hives, swelling at site Coreg [Carvedilol] Hives ROS: CONSTITUTIONAL: No fevers, chills, nightsweats, unintended weight loss HEENT: HEENT: Yes symptoms: epistaxis, No symptoms: headaches, sinus pressure, nasal congestion, sense of smell absent, and nasal drainage both EYES: No diplopia or blurry vision. PHYSICAL EXAM: 10/27/23 1506 Temp: 36.8 ?C (98.2 ?F) General appearance: well developed, well nourished, without obvious deformities Eyes: Extra ocular muscles are intact, no diplopia on primary gaze Ears: Externally normal in appearance, without scars, lesions, or masses. Both left and right external auditory canals and tympanic membranes are normal Nasal exam: The mucosa is pink, the septum is No deviated, and the visible turbinates are Yes hypertrophied on anterior rhinoscopy, nasal polyps (0 L, 0 R) Oral cavity and oropharynx: the oral mucosa, tongue, tonsil area, and posterior pharyngeal mucosa are without lesions. Floor of mouth is soft without edema. Procedure: Diagnostic rigid nasal endoscopy Consent: verbal consent obtained Surgeon: Curt Farah Anesthesia: The patient was sprayed with 4% topical lidocaine and Afrin. A rigid nasal scope was utilized to examine the patient nose Findings: A 30-degree rigid endoscope was passed through the patient's bilateral nares. The first pass was along the floor of the nose to the nasopharynx. The second pass was to the area of the middle meatus. The third pass was to the sphenoethmoidal recess. Septum: The septum is midline, no perforations. R/L Nasal cavity No nasal polyps (0 L, 0 R) Right nasal cavity: Inferior turbinate: Hypertrophied Inferior meatus: Clear, no discharge, no polyps/masses/lesions Middle meatus: Clear, no discharge, no polyps/ma (more content not included)... Normal [facility] Outside Recordson 10-22-2023 Outside Records [id number] .00TIFF Normal [facility] Outside Records [id number] 1.00TIFF Normal [facility] ED Note-Physicianon 10-21-19 ED Note-Physician [id number] .00TIFF Normal [facility] EDPROVon 10-21-2023 EDPROV HPI Chief Complaint Patient presents with Nasal Packing Removal Patient was sent from [facility] to have nasal packing removed needs to be under general anesthesia, that facility does not have a floor waxer on staff. Patient sent from [facility]. Pt was due to have nasal packing removed under anesthesia, however, the anesthesiologist did not feel comfortable without cardiology support. The pt follows with Dr. Gomez. Pt was sent to our ED for possible admission. However, we do not have ENT coverage. Zamora Coma Scale Score: 15 Patient History Past Medical History: Diagnosis Date Atrial fibrillation (CMS/HCC) Bradycardia 03/13/2022 Cancer ([facility]/HCC) CHF (congestive heart failure) ([facility]) Chronic kidney disease Diabetes mellitus ([facility]) Heart valve disease Hyperlipidemia Hypertension PVC (premature ventricular contraction) 03/13/2022 Sleep apnea Past Surgical History: Procedure Laterality Date CARDIAC CATHETERIZATION LEFT CARDIAC CATHETERIZATION 11/18/2021 STENTS 1995, 1997 CARDIAC CATHETERIZATION 11/01/2016 CATARACT EXTRACTION Family History Problem Relation Name Age of Onset Hypertension Mother Stroke Father Breast cancer Sister Social History Tobacco Use Smoking status: Former Types: Cigarettes Smokeless tobacco: Never Substance Use Topics Alcohol use: Not Currently Drug use: Never Review of Systems Review of Systems Constitutional: Negative. HENT: Negative. Eyes: Negative. Respiratory: Negative. Cardiovascular: Negative. Gastrointestinal: Negative. Endocrine: Negative. Genitourinary: Negative. Musculoskeletal: Negative. Skin: Negative. Allergic/Immunologic: Negative. Neurological: Negative. Hematological: Negative. Psychiatric/Behaviora l: Negative. All other systems reviewed and are negative. Physical Exam ED Triage Vitals Temp Heart Rate Resp BP 10/21/23 1315 10/21/23 1315 10/21/23 1315 10/21/23 1315 36.6 ???C (97.9 ???F) 84 18 113/76 SpO2 Temp Source Heart Rate Source Patient Position 10/21/23 1315 10/21/23 1315 10/21/23 1315 10/21/23 1315 93 % Oral Monitor Sitting BP Location FiO2 (%) 10/21/23 1315 -- Left arm Physical Exam Constitutional: Appearance: He is well-developed. HENT: Head: Normocephalic and atraumatic. Comments: Packing in left nare Nose: Nose normal. Mouth/Throat: Mouth: Mucous membranes are moist. Eyes: Conjunctiva/sclera: Conjunctivae normal. Pupils: Pupils are equal, round, and reactive to light. Neck: Thyroid: No thyromegaly. Vascular: No JVD. Cardiovascular: Rate and Rhythm: Normal rate and regular rhythm. Pulmonary: Effort: Pulmonary effort is normal. Breath sounds: Normal breath sounds. Abdominal: General: Bowel sounds are normal. Palpations: Abdomen is soft. Musculoskeletal: General: Normal range of motion. Cervical back: Normal range of motion and neck supple. Skin: General: Skin is warm. Neurological: General: No focal deficit present. Mental Status: He is alert and oriented to person, place, and time. Mental status is at baseline. Procedures ED Course & MDM ED Course as of 10/21/231551 Tue Oct 21, [address] Nur. We will DC the patient home to follow up with ENT in 1-2 days to coordinate the packing removal at a facility with both cardiology and ENT coverage. [WS] ED Course User Index [WS] Deacon Méndez MD Diagnoses as of 10/21/231551 Encounter for removal of nasal packing Medical Decision Making Attestion Deacon Méndez MD 10/21/23 1552 [facility] Family Medicine Office/Clini c Noteon 10-21-2023 Family Medicine Office/Clinic Note HPI Staff Sandip is a 82 year old male presenting for [facility] hospital follow up anemia In the ER 4 times 2 weeks ago for nosebleed and was to follow up with PCP The hospital follow up is too old for a TCM Had to do the rhino rocket again and saw Dr Hyde again for the nosebleeds Er rxed antbs 2 different ones, first cephalexin and then amoxicillin which he still has some of. Cannot obtain a pulse ox, patient states it was 98% at home. On 3L O2 flu: UTD questions/concerns: needs refills of terazpsin, febuxostat and omeprazole History of Present Illness Sandip Broussard is an 82-year-old male who presents for his 3 month follow up check. He is accompanied by his . He is due for his upcoming transfusion this week and will have his blood count assessed during his oncologist appointment tomorrow. He is receiving 1 unit of blood transfusion weekly, with the transfusion threshold set at a hemoglobin level of 6.5 g/dl. He reports feeling fatigued. The patient has not been monitoring his blood sugar levels at home. His fasting blood glucose readings have been around 125 mg/dL. He has an upcoming appointment with plate corrector Dr. Navarro next month. He is currently taking terazosin. He reports no significant issues with regards to his respiratory status and is not under the care of a service specialist. The patient's has noticed a decline in his hearing ability. He has an ongoing ear infection, and his hearing aid is not functioning properly. He received treatment with cephalexin and amoxicillin after an emergency room visit. His hearing aid is approximately 1 year old. He will be seeing his floor waxer on 01/15/2024. The patient's reports that managing responsibilities and coordinating care among different healthcare providers is becoming increasingly challenging and burdensome. Review of Systems PHQ Score Initial Depression Screen Score: 0 SCORE Physical Exam Vitals & Measurements T: 36.3 ?C(Oral) HR: 56(Peripheral) RR: 18 BP: 102/52 HT: 67 in HT: 170 cm WT: 92.3 kg WT: 203.06 lb BMI: 31.94 General: alert, no acute distress. The patient is very pale. ENMT: oral mucosa moist, no pharyngeal erythema or exudate. TMs are within normal limits bilaterally. Cardiovascular: regular rate and rhythm, normal peripheral perfusion Respiratory: Lungs CTA. The patient is on 3 L of oxygen. Extremities: no deformity, no trauma Neurological: LOC appropriate for age, CN II-XII intact, motor strength equal & normal bilaterally, speech normal. The patient is having trouble with orientation. Assessment/Plan 1. Type 2 diabetes mellitus with hyperlipidemia (E11.69: Type 2 diabetes mellitus with other specified complication) Currently, obtaining an A1c is challenging due to multiple transfusions. The patient is not monitoring blood sugar levels at home. I emphasized the importance of regular blood sugar monitoring to gauge diabetes management. Medication refills were provided during this visit. 2. 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 Continued follow-up with oncology is necessary. 3. Chronic kidney disease, stage 4 (severe) (N18.4: Chronic kidney disease, stage 4 (severe)) Nephrology follow-up is essential. Despite encouragement for lab testing, there are challenges with obtaining labs due to the 's reluctance. Hospital records will be reviewed to assess recent renal function. 4. Chronic respiratory failure with hypoxia (J96.11: Chronic respiratory failure with hypoxia) The patient is on 3 L of oxygen, with uncertainty regarding the underlying cause, whether it's related to COPD or anemia. No hide dropper consultation is scheduled currently. 5. Chronic systolic congestive heart failure (I50.22: Chronic systolic (congestive) heart failure) The patient is stable without acute exacerbation. He is prescribed 2 mg of Bumex, and monitoring will continue given the frequent transfusions. 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 7. Morbid obesity (E66.01: Morbid (severe) obesity due to excess calories) Recommendations for diet modification and regular exercise were provided. 8. Myelodysplastic syndrome (D46.9: Myelodysplastic syndrome, unspecified) Follow-up with oncology remains crucial for managing myelodysplastic syndrome. 9. Pulmonary HTN (I27.20: Pulmonary hypertension, unspecified) The patient's pulmonary hypertension is stable at baseline. Continued monitoring is advised. 10. Type 2 diabetes mellitus with diabetic nephropathy, without long-term current use of insulin (E11.21: Type 2 diabetes mellitus with diabetic nephropathy) The patient has an upcoming appointment with the nephrology department scheduled for the end of this month. 11. BMI 31.0-31.9,adult (Z68.31: Body mass index [BMI] 31.0-31.9, adult) (more content not included)... Normal [facility] Comment on above: Result Comment: Elec tronically Signed By: Jacquelin Barton MD\.br\Date and Time Signed: 10/21/23 15:21 EDT\.br\Electronically Co-Signed By: Kristofer Johnson\.br\Date and Time Co-Signed: 10/13/23 16:23 EDT\.br\Electronically Co-Signed By: Kristofer Johnson\.br\Date and Time Co-Signed: 10/20/23 12:32 EDT\.br\Electronically Co-Signed By: Kristofer Johnson\.br\Date and Time Co-Signed: 10/20/23 12:33 EDT 36on 10-20-2023 36 Patient's clinton peterson asking for clearance for Don. She called [...] off the table . Any advice? [facility] Anisocytosis LM Ql (Bld)Orde red By: Caryl Marie on 10-17-2023 Anisocytosis Ql (Bld) Slight [facility] Band form neutrophils/100 WB C Manual cnt (Bld)Ordered By: Caryl Marie on 10-17-2023 Band form neutrophils/100 WBC (Bld) 4 % 0-5 [facility] Basic Metabolic Panelon 09-26 Anion gap [Moles/Vol] 14.8 mmol/L Normal 6.0-15.0 [facility] Comment on above: Performed By: #### D IFF CBC, BMP #### [facility] [address] [place] [address] [place] Calcium [Mass/Vol] 8.1 mg/dL Low 8.6-10.3 [facility] Comment on above: Performed By: #### D IFF CBC, BMP #### [facility] [address] [place] [id number] [place] Chloride [Moles/Vol] 103 mmol/L Normal 98-107 [facility] Comment on above: Performed By: #### D IFF CBC, BMP #### [facility] [address] [place] [id number] [place] CO2 [Moles/Vol] 25.2 mmol/L Normal 21.0-31.0 [facility] Comment on above: Performed By: #### D IFF CBC, BMP #### [facility] [address] Creatinine [Mass/Vol] 1.98 mg/dL High 0.70-1.[address] [facility] Comment on above: Performed By: #### D IFF CBC, BMP #### [facility] [address] [place] [address] [place] Creatinine Clr Calc Pharmacy 29.51 [facility] Comment on above: Result Comment: PERF ORMED BY: [facility] [address] [place] [address] [address] DR[employer] XAVI ZAIDI M.D. Performed By: #### D IFF CBC, BMP #### [facility] [address] [place] [address] [place] GFR/1.73 sq M.predicted MDRD (S/P/Bld) [Vol rate/Area] 32.696 mL/min/{1.73_m2} [facility] Comment on above: Performed By: #### D IFF CBC, BMP #### [facility] [address] Glucose [Mass/Vol] 202 mg/dL High 70-100 [facility] Comment on above: Result Comment: [place] Glucose Reference Range is dependent on time and content of last meal. Glucose of more than 200 mg/dL in a nonstressed, ambulatory subject supports the diagnosis of Diabetes Mellitus. ADA recommended reference range Performed By: #### D IFF CBC, BMP #### [facility] [address] [place] [address] [place] Potassium [Moles/Vol] 4.0 mmol/L Normal 3.5-5.[address] [facility] Comment on above: Performed By: #### D IFF CBC, BMP #### [facility] [address] [place] [address] [place] Sodium [Moles/Vol] 139 mmol/L Normal 136-145 [facility] Comment on above: Performed By: #### D IFF CBC, BMP #### [facility] [address] [place] [address] [place] Urea nitrogen [Mass/Vol] 49 mg/dL High 7-25 [facility] Comment on above: Performed By: #### D IFF CBC, BMP #### [facility] [address] [place] [address] [place] Basophils Auto (Bld) [#/Vol] Ordered By: Caryl Mraie on 10-17-2023 Basophils (Bld) [#/Vol] N/A [facility] Basophils/100 WBC Auto (Bld) Ordered By: Caryl Marie on 10-17-2023 Basophils/100 WBC (Bld) N/A [facility] Basophils/100 WBC Manual cnt (Bld)Ordered By: Caryl Marie on 10-17-2023 Basophils/100 WBC (Bld) 1 % 0-2 [facility] Calcium [Mass/volume] in Ser um or PlasmaOrdered By: Caryl Marie on 10-17-2023 Calcium [Mass/Vol] 8.1 mg/dL 8.6-10.3 [facility] Carbon dioxide, total [Moles /volume] in Serum or PlasmaOrdered By: Caryl Marie on 10-17-2023 CO2 [Moles/Vol] 25.2 mmol/L 21.0-31.0 [facility] Chloride [Moles/volume] in S robinson or PlasmaOrdered By: Caryl Marie on 10-17-2023 Chloride [Moles/Vol] 103 mmol/L 98-107 [facility] Creatinine [Mass/volume] in Serum or PlasmaOrdered By: Caryl Marie on 10-17-2023 Creatinine [Mass/Vol] 1.98 mg/dL 0.70-1.[address] [facility] Diff and CBCon 10-17-2023 Anisocytosis Ql (Bld) Slight Normal [facility] Comment on above: Performed By: #### D IFF CBC, BMP #### [facility] [address] [place] [address] [place] Band form neutrophils/100 WBC (Bld) 4 % Normal 0-5 [facility] Comment on above: Performed By: #### D IFF CBC, BMP #### [facility] [address] [place] [id number] [place] Basophils/100 WBC (Bld) 1 % Normal 0-2 [facility] Comment on above: Performed By: #### D IFF CBC, BMP #### [facility] [address] Eosinophils/100 WBC (Bld) 1 % Normal 1-3 [facility] Comment on above: Performed By: #### D IFF CBC, BMP #### [facility] [address] Erythrocyte distribution width (RBC) [Ratio] 23.0 % High 12.0-14.8 [facility] Comment on above: Performed By: #### D IFF CBC, BMP #### [facility] [address] Giant Platelet Tally 2 /100{WBC} Normal [facility] Comment on above: Performed By: #### D IFF CBC, BMP #### [facility] [address] Hematocrit (Bld) [Volume fraction] 21.8 % Low 38.8-50.0 [facility] Comment on above: Performed By: #### D IFF CBC, BMP #### [facility] [address] Hemoglobin (Bld) [Mass/Vol] 7.3 g/dL Low 13.0-17.0 [facility] Comment on above: Performed By: #### D IFF CBC, BMP #### [facility] [address] [place] [address] [place] Lymphocytes/100 WBC (Bld) 20 % Normal 18-42 [facility] Comment on above: Performed By: #### D IFF CBC, BMP #### [facility] [address] Macrocytosis Slight Normal [facility] Comment on above: Performed By: #### D IFF CBC, BMP #### [facility] [address] MCH (RBC) [Entitic mass] 31.4 pg Normal 27.5-35.2 [facility] Comment on above: Performed By: #### D IFF CBC, BMP #### [facility] [address] MCV (RBC) [Entitic vol] 93.5 fL Normal 83.5-101 [facility] Comment on above: Performed By: #### D IFF CBC, BMP #### [facility] [address] Mean Corpuscular HGB Conc 33.5 g/dL Normal 32.5-35.6 [facility] Comment on above: Performed By: #### D IFF CBC, BMP #### [address] Metamyelocytes 1 % High 0-0 [facility] Comment on above: Performed By: #### D IFF CBC, BMP #### [address] Microcytosis Slight Normal [facility] Comment on above: Performed By: #### D IFF CBC, BMP #### [address] Monocytes/100 WBC (Bld) 28.42 % High 0.00-20.00 [facility] Comment on above: Result Comment: For adults in ED, MDW > 20.0 may be associated with a higher risk of sepsis during the first 12 hrs of hospital admission The predictive value of MDW for identifying sepsis in patients with hematological abnormalities has not been established Performed By: #### D IFF CBC, BMP #### [facility] [address] [place] [address] [place] Monocytes/100 WBC (Bld) 17 % High 2-11 [facility] Comment on above: Performed By: #### D IFF CBC, BMP #### [facility] [address] [place] [address] Ovalocytes Slight Normal [facility] Comment on above: Performed By: #### D IFF CBC, BMP #### [address] Platelet Estimate Decreased Normal Normal [facility] Comment on above: Performed By: #### D IFF CBC, BMP #### [facility] [address] [place] [address] Platelet mean volume (Bld) [Entitic vol] 13.0 fL High 6.6-10.1 [facility] Comment on above: Performed By: #### D IFF CBC, BMP #### [address] Platelet Morphology Normal Normal Normal [facility] Comment on above: Result Comment: PERF ORMED BY: [place] [address] [address] [employer] XAVI ZAIDI M.D. Performed By: #### D IFF CBC, BMP #### [address] Platelets (Bld) [#/Vol] 70 10*3/uL Low 150-450 [facility] Comment on above: Performed By: #### D IFF CBC, BMP #### [address] Poikilocytosis Slight Normal [facility] Comment on above: Performed By: #### D IFF CBC, BMP #### [facility] [address] [place] [address] Polychromasia Slight Normal [facility] Comment on above: Performed By: #### D IFF CBC, BMP #### [address] RBC (Bld) [#/Vol] 2.33 10*6/uL Low 3.90-5.60 [facility] Comment on above: Performed By: #### D IFF CBC, BMP #### [facility] [address] [place] [address] Segmented neutrophils/100 WBC (Bld) 56 % Normal 50-70 [facility] Comment on above: Performed By: #### D IFF CBC, BMP #### [facility] [address] [place] [address] Stomatocytes Slight Normal [facility] Comment on above: Performed By: #### D IFF CBC, BMP #### [facility] [address] [place] [address] [place] WBC (Bld) [#/Vol] 2.9 10*3/uL Low 4.1-10.5 [facility] Comment on above: Performed By: #### D IFF CBC, BMP #### [facility] [address] [place] [address] [place] WBC (Bld) [#/Vol] 3.5 10*3/uL Low 4.1-10.5 [facility] Comment on above: Performed By: #### D IFF CBC, BMP #### [facility] [address] [place] [address] [facility] ECG 12 lead ECGon 10-17-20[address] [facility] [address] [place] [address] [place] [address] Electrocardiograph Report Signed Patient: Sandip Broussard MR#: [id number] : 1940 Acct:[id number] Age/Sex: 82 / M ADM Date: 10/17/23 Loc: ER Room: Type: [facility] ER Attending Dr: Ordering Provider: Caryl Marie [...] Anterolateral infarct present Confirmed by AARON SEN FACELENA ([id number]) on 10/19/2023 12:01:37 PM Referred By: Electronically Signed By:ELENA BUCIO MD FACC Transcribed By: MUS Signed By Deacon Bucio MD 10/19/23 1201 Normal [facility] ECG [address] [facility] [address] [place] [address] [place] [address] Electrocardiograph Report Signed Patient: Sandip Broussard MR#: [id number] : 1940 Acct:[id number] Age/Sex: 82 / M ADM Date: 10/17/23 Loc: ER Room: Type: [facility] ER Attending Dr: Ordering Provider: Caryl Marie [...] , age undetermined Inferior injury pattern ACUTE AK / STEMI Consider right ventricular involvement in acute inferior infarct Abnormal ECG No previous ECGs available [id number] on 10/19/2023 12:01:17 PM Referred By: Electronically Signed By:ELENA BUCIO MD [facility] Transcribed By: MUS Signed By Deacon Bucio MD 10/19/23 1201 Normal [facility] Eosinophils Auto (Bld) [#/Vo l]Ordered By: Caryl Marie on 10-17-2023 Eosinophils (Bld) [#/Vol] N/A [facility] Eosinophils/100 WBC Auto (Bl d)Ordered By: Caryl Marie on 10-17-2023 Eosinophils/100 WBC (Bld) N/A [facility] Eosinophils/100 WBC Manual c nt (Bld)Ordered By: Caryl Marie on 10-17-2023 Eosinophils/100 WBC (Bld) 1 % 1-3 [facility] Erythrocyte distribution wid th Auto (RBC) [Ratio]Ordered By: Caryl Marie on 10-17-2023 Erythrocyte distribution width (RBC) [Ratio] 23.0 % 12.0-14.8 [facility] Giant platelets/100 leukocyt es [Ratio] in Blood by Manual countOrdered By: Caryl Marie on 10-17-2023 Giant platelets/100 WBC Manual cnt (Bld) [Ratio] 2 /100{WBC} [facility] Glucose [Mass/volume] in Ser um or PlasmaOrdered By: Caryl Marie on 10-17-2023 Glucose [Mass/Vol] 202 mg/dL 70-100 [facility] Comment on above: ADA recommended refe rence rangeRandom Glucose Reference Range is dependent on time and content of last meal. Glucose of more than 200 mg/dL in a nonstressed, ambulatory subject supports the diagnosis of Diabetes Mellitus. Hematocrit Auto (Bld) [Volum e fraction]Ordered By: Caryl Marie on 10-17-2023 Hematocrit (Bld) [Volume fraction] 21.8 % 38.8-50.0 [facility] Hemoglobin [Mass/volume] in BloodOrdered By: Caryl Marie on 10-17-2023 Hemoglobin (Bld) [Mass/Vol] 7.3 g/dL 13.0-17.0 [facility] Leukocytes [#/volume] correc iban for nucleated erythrocytes in Blood by Automated counOrdered By: Caryl Marie on 10-17-2023 WBC corrected for nucl RBC Auto (Bld) [#/Vol] 2.9 10*3/uL 4.1-10.5 [facility] Lymphocytes Auto (Bld) [#/Vo l]Ordered By: Caryl Marie on 10-17-2023 Lymphocytes (Bld) [#/Vol] N/A [facility] Lymphocytes/100 WBC Auto (Bl d)Ordered By: Caryl Marie on 10-17-2023 Lymphocytes/100 WBC (Bld) N/A [facility] Lymphocytes/100 WBC Manual c nt (Bld)Ordered By: Caryl Marie on 10-17-2023 Lymphocytes/100 WBC (Bld) 20 % 18-42 [facility] MCH Auto (RBC) [Entitic mass ]Ordered By: Caryl Marie on 10-17-2023 MCH (RBC) [Entitic mass] 31.4 pg 27.5-35.2 [facility] MCHC Auto (RBC) [Mass/Vol]Or dered By: Caryl Marie on 10-17-2023 MCHC (RBC) [Mass/Vol] 33.5 g/dL 32.5-35.[address] [facility] MCV Auto (RBC) [Entitic vol] Ordered By: Caryl Marie on 10-17-2023 MCV (RBC) [Entitic vol] 93.5 fL 83.5-101 [facility] Macrocytes LM Ql (Bld)Ordere d By: Caryl Marie on 10-17-2023 Macrocytes Ql (Bld) Slight [facility] Metamyelocytes/100 WBC Manua l cnt (Bld)Ordered By: Caryl Marie on 10-17-2023 Metamyelocytes/100 WBC (Bld) 1 % 0-0 [facility] Microcytes LM Ql (Bld)Ordere d By: Caryl Marie on 10-17-2023 Microcytes Ql (Bld) Slight [facility] Monocyte distribution width [Entitic volume] in Blood by AutomatedOrdered By: Caryl Marie on 10-17-2023 Monocyte distribution width Auto (Bld) [Entitic vol] 28.42 % 0.00-20.00 [facility] Comment on above: For adults in ED, MD W > 20.0 may be associated with a higher risk of sepsis during the first 12 hrs of hospital admissionThe predictive value of MDW for identifying sepsis in patients with hematological abnormalities has not been established Monocytes Auto (Bld) [#/Vol] Ordered By: Caryl Marie on 10-17-2023 Monocytes (Bld) [#/Vol] N/A [facility] Monocytes/100 WBC Auto (Bld) Ordered By: Caryl Marie on 10-17-2023 Monocytes/100 WBC (Bld) N/A [facility] Monocytes/100 WBC Manual cnt (Bld)Ordered By: Caryl Marei on 10-17-2023 Monocytes/100 WBC (Bld) 17 % 2-11 [facility] Neutrophils Auto (Bld) [#/Vo l]Ordered By: Caryl Marie on 10-17-2023 Neutrophils (Bld) [#/Vol] N/A [facility] Neutrophils/100 WBC Auto (Bl d)Ordered By: Caryl Marie on 10-17-2023 Neutrophils/100 WBC (Bld) N/A [facility] No Panel InformationOrdered By: Caryl Marie on 10-17-2023 Estimated GFR (CKD-EPI) 32.696 mL/Min [facility] Creatinine Clearance (Chem 29.51 [facility] Nucleated erythrocytes [Pres ence] in Blood by Automated countOrdered By: Caryl Marie on 10-17-2023 Nucleated RBC Auto Ql (Bld) N/A [facility] Ovalocyte detectionOrdered B y: Caryl Marie on 10-17-2023 Ovalocytes LM Ql (Bld) Slight [facility] Platelet adequacy [Presence] in Blood by Light microscopyOrdered By: Caryl Marie on 10-17-2023 Platelets LM Ql (Bld) Decreased Normal [facility] Platelet mean volume Auto (B ld) [Entitic vol]Ordered By: Caryl Marie on 10-17-2023 Platelet mean volume (Bld) [Entitic vol] 13.0 fL 6.6-10.1 [facility] Platelet morphology finding [Identifier] in BloodOrdered By: Caryl Marie on 10-17-2023 Platelet morphology finding Nom (Bld) Normal Normal [facility] Platelets Auto (Bld) [#/Vol] Ordered By: Caryl Marie on 10-17-2023 Platelets (Bld) [#/Vol] 70 10*3/uL 150-450 [facility] Poikilocytosis [Presence] in Blood by Light microscopyOrdered By: Caryl Marie on 10-17-2023 Poikilocytosis LM Ql (Bld) Slight [facility] Polychromasia [Presence] in Blood by Light microscopyOrdered By: Caryl Marie on 10-17-2023 Polychromasia LM Ql (Bld) [facility] Potassium [Moles/volume] in Serum or PlasmaOrdered By: Caryl Marie on 10-17-2023 Potassium [Moles/Vol] 4.0 mmol/L 3.5-5.[address] [facility] RBC Auto (Bld) [#/Vol]Ordere d By: Caryl Marie on 10-17-2023 RBC (Bld) [#/Vol] 2.33 10*6/uL 3.90-5.60 [facility] RBC morphologyOrdered By: Chavo Marie on 10-17-2023 RBC morphology finding Nom (Bld) N/A [facility] Red blood cell stomatocyte d etectionOrdered By: Caryl Marie on 10-17-2023 Stomatocytes LM Ql (Bld) Slight [facility] Segmented neutrophils/100 WB C Manual cnt (Bld)Ordered By: Caryl Marie on 10-17-2023 Segmented neutrophils/100 WBC (Bld) 56 % 50-70 [facility] Serum or plasma anion gap de terminationOrdered By: Caryl Marie on 10-17-2023 Anion gap [Moles/Vol] 14.8 mmol/L 6.0-15.0 [facility] Sodium [Moles/volume] in Ser um or PlasmaOrdered By: Caryl Marie on 10-17-2023 Sodium [Moles/Vol] 139 mmol/L 136-145 [facility] Troponin I High Sensitivityo n 10-17-2023 Troponin I High Sensitivity 35.1 pg/mL High 0.0-20.0 [facility] Comment on above: Result Comment: PERF ORMED BY: [place] [address] PATH[address] [employer] DRIVER XAVI ZAIDI M.D. Performed By: #### H S TROP #### [address] Troponin I.cardiac [Mass/vol ume] in Serum or Plasma by Detection limit <= 0.01 ng/Ordered By: Caryl Marie on 10-17-2023 Troponin I.cardiac DL <= 0.01 ng/mL [Mass/Vol] 35.1 pg/mL 0.0-20.0 [facility] Urea nitrogen [Mass/volume] in Serum or PlasmaOrdered By: Caryl Marie on 10-17-2023 Urea nitrogen [Mass/Vol] 49 mg/dL 7-25 [facility] WBC Auto (Bld) [#/Vol]Ordere d By: Caryl Marie on 10-17-2023 WBC (Bld) [#/Vol] 3.5 10*3/uL 4.1-10.5 [facility] 36on 10-15-2023 36 Regarding labs on 10/14/2023: [...] supplements? Spoke with patient's . She said [facility] lab faxed results to Dr. Barton. She said patient is not c/o increased SOB or LE edema. Says he's eating and drinking fine now. 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 [facility] 36 Potassium continues to improve, Renal function stable- is not worsening BNP remains elevated- continue all CHF meds and regime. [facility] 36on 10-14-2023 36 [facility] lab called to report a critical BNP of 4020. Prior BNP on 09/28 was 3551. [facility] Telephoneon 10-14-2023 Telephone [id number] Sandip Broussard 1940 M Date Provider Department Center 10/14/2023 120-KAREN ZUÑIGA [facility] Family History Problem Relation Age of Onset Hypertension Mother Stroke Father Breast cancer Sister Family Status - Relation Status Age at Mother Father Sister [facility] Ambulatory Visit Summaryon 0 10-13-2023 Ambulatory [...] in adult Former smoker Hyperlipidemia, unspecified Other pad extractor tender (current) drug therapy Your Care Team Attending Physician - Jacquelin Barton MD Primary Care Physician - Jacquelin Barton MD This Is Your Medications List Misc Prescription (Freestyle Carmen 2 Flash Glucose Monitoring 14 Day System (Sensor)) Misc Prescription (Freestyle Carmen Flash 2 Glucose Monitoring 14 Day System (Garibaldi)) Misc Prescription (Misc DME Prescription) aspirin (aspirin [...] Follow-Up Appointments 2023 3:30 PM EDT With: Jacquelin Barton MD Where: [facility] Invalid Interpretation Code [address] [place] [address]- \.br\ Friday 2:00 PM EDT \.br\ With:\.br\ Where: [facility] Office Visiton 10-10-2023 Follow-up visit [id number] Sandip Broussard 1940 M Date Provider Department Center 10/10/2023 KAREN SHEIKH DONNIE [facility] Family History Problem Relation Age of Onset Hypertension Mother Stroke Father Breast cancer Sister Family Status - Relation Status Age at Mother Father Sister Level of Service:68719 [place] OFFICE/OUTPATIENT ESTABLISHED LOW MDM 20 MIN [facility] ED Note-Physicianon 10-09-19 ED Note-Physician [id number] .00TIFF Normal [facility] Consultation Noteon 10-08-19 Consultation Note [id number] .00TIFF Normal [facility] ED Note-Physicianon 10-03-19 ED Note-Physician [id number] .00TIFF Normal [facility] ED Note-Physician [id number] .00TIFF [facility] Lab Reportson 09-30-2023 Lab Reports [id number]#1 .00TIFF [facility] RAD - MISCon 09-30-2023 RAD - MISC [id number] .00TIFF [facility] Office Visiton 09-29-2023 Follow-up visit [id number] Sandip Broussard 1940 M Date Provider Department Center 09/29/2023 SHENG BERGMAN DONNIE Montoya Family History Problem Relation Age of Onset Hypertension Mother Stroke Father Breast cancer Sister Family Status - Relation Status Age at Mother Father Sister Level of Service:21099 [place] OFFICE/OUTPATIENT ESTABLISHED HIGH MDM 40 MIN [facility] 3609-26-2023 36 Patient's made aware to hold bumex over the weekend and have repeat labs before 3:15pm apt with Dr. Gomez on Friday, 09/28. Orders faxed to [facility]. [facility] 3609-23-2023 36 [facility] lab called with critical lab values: ProBNP is 2604, BUN is 87. [facility] Ambulatory Visit Summaryon 0 09-22-2023 Ambulatory Visit Summary SANDIP BROUSSARD :1940 Visit Date:09/22/2023 Ambulatory Visit Instructions Your Diagnosis Incomplete bladder emptying BPH with obstruction/lower urinary tract symptoms Penile cyst Your Care Team Attending Physician - Elena DO MD Primary Care Physician - Jacquelin Barton MD Referring Physician - Jacquelin Barton MD This Is Your Medications List terazosin (terazosin 5 mg Cap) Contact prescribing physician if questions or concerns Misc Prescription (Freestyle Carmen 2 Flash Glucose Monitoring 14 Day System (Sensor)) Misc Prescription (Freestyle Carmen Flash 2 Glucose Monitoring 14 Day System (Garibaldi)) Misc Prescription (Misc DME Prescription) aspirin (aspirin [...] Follow-Up Appointments Friday 1:15 PM EDT With: Jacquelin Barton MD Where: [facility] [place] Normal [address] [place] [phone] \.br\ You Need to Schedule the Following Appointments\.br\ Follow Up with Elena DO MD, URL When: \.br\ Comments:\.br\ 6 mos (no labs)\.br\ Where:\.br\ [facility] [address]\.br\ [place] [address]-\.br\ [id number]\.br\ Medications\.br\ What How Much When Why Instructions\.br\ Changed terazosin (terazosin 5 mg Cap) 1 Capsules By Mouth Once a day (at bedtime) Pickup at [facility] [id number]\.br\ Unchanged aspirin (aspirin 81 mg Oral EC [...] Flash 2 Glucose Monitoring 14 Day System (Garibaldi)) See instructions Primary 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 \.br\ Take qofd-qvu-bcotscc and prescription medicines only as told by your health care provider. Avoid certain medicines, such as decon [facility] Patient Educationon 09-22-19 Patient Education Urology Acute [...] these instructions at home: Medicines ? Take zazv-ywc-fkrhydm and prescription medicines only as told by [...] provider. Document Revised: 04/04/2021 Document Reviewed: 04/04/2021 [employer] Patient Education ? 2022 [employer]. [facility] 36on 09-16-2023 36 Pro BNP is 4001 [facility] 36 Patient and his stopped by the office today to give you an update. His stomach is very red with dry skin. I called Dr. Barton and he recommended an OTC steroid cream. He said if it didn't improve to call his office to see an MFT. Patient and his made aware. His weight was 212# today in the office. Would you like him to change increased dose of bumex and potassium? I also ordered BNP since I couldn't find a recent one for him. Please advise. Thanks. [facility] [id number] .00TIFF [facility] 36on 09-11-2023 36 Patient's alonzo d [...] 25mg daily. Any recommendations? Please advise. [facility] Telephoneon 09-11-2023 Telephone [id number] Sandip Broussard 1940 M Date Provider Department Center 09/11/2023 SHENG BERGMAN DONNIE Montoya Family History Problem Relation Age of Onset Hypertension Mother Stroke Father Breast cancer Sister Family Status - Relation Status Age at Mother Father Sister [facility] Retail - Clinical Noteon Retail - Clinical Note [id number] .00TIFF Normal [facility] Office Visiton 08-29-2023 Follow-up visit [id number] Sandip Broussard 1940 M [facility] Provider Department Center 08/29/2023 SHENG BERGMAN DONNIE Montoya Family History Problem Relation Age of Onset Hypertension Mother Stroke Father Breast cancer Sister Family Status - Relation Status Age at Mother Father Sister Level of Service:84568 [place] OFFICE/OUTPATIENT ESTABLISHED LOW MDM 20 MIN [facility] Basic Metabolic Profon 08-19 Anion gap [Moles/Vol] 13 mmol/L Normal 9-17 [facility] Comment on above: Performed By: #### C DP, BMP #### [facility] [address] [place] [address] Animal Ecologist: Josie Castro MD BUN/CRE Ratio 17 Normal - [facility] Comment on above: Performed By: #### C DP, BMP #### [facility] [address] [place] [address] Animal Ecologist: Josie Castro MD Calcium [Mass/Vol] 8.9 mg/dL Normal 8.6-10.4 [facility] Comment on above: Performed By: #### C DP, BMP #### [facility] [address] [place] [address] Animal Ecologist: Josie Castro MD Chloride [Moles/Vol] 101 mmol/L Normal 98-107 [facility] Comment on above: Performed By: #### C DP, BMP #### [facility] [address] [place] [address] Animal Ecologist: Josie Castro MD CO2 [Moles/Vol] 29 mmol/L Normal 20-31 [facility] Comment on above: Performed By: #### C DP, BMP #### [facility] [address] [place] [address] Animal Ecologist: Josie Castro MD Creatinine [Mass/Vol] 1.6 mg/dL High 0.7-1.2 [facility] Comment on above: Performed By: #### C DP, BMP #### [facility] [address] [place] [address] Animal Ecologist: Josie Castro MD GFR/1.73 sq M.predicted among non-blacks MDRD (S/P/Bld) [Vol rate/Area] 42 mL/min/{1.73_m2} Low >60 [facility] Comment on above: Result Comment: These results [...] Performed By: #### C DP, BMP #### [facility] [address] [place] [address] Animal Ecologist: Josie Castro MD Glucose [Mass/Vol] 103 mg/dL High 70-99 [facility] Comment on above: Performed By: #### C DP, BMP #### [facility] [address] [place], [place] [phone] Animal Ecologist: Josie Castro MD Potassium [Moles/Vol] 4.3 mmol/L Normal 3.7-5.3 [facility] Comment on above: Performed By: #### C DP, BMP #### [facility] [address] [place], [place] [phone] Animal Ecologist: Josie Castro MD Sodium [Moles/Vol] 143 mmol/L Normal 135-144 [facility] Comment on above: Performed By: #### C DP, BMP #### [facility] [address] [place] [phone] Animal Ecologist: Josie Castro MD Urea nitrogen [Mass/Vol] 27 mg/dL High 8- [facility] Comment on above: Performed By: #### C DP, BMP #### [facility] [address] [place] [address] Animal Ecologist: Josie Castro MD CBC with Diffon 08-19-2023 Abs. Bands 0.07 k/uL Normal 0.0-1.0 [facility] Comment on above: Performed By: #### C DP, BMP #### [facility] [address] [place] [phone] Animal Ecologist: Josie Castro MD Abs. Basophil Normal 0.0-0.2 [facility] Comment on above: Performed By: #### C DP, BMP #### [facility] [address] [place] [phone] Animal Ecologist: Josie Castro MD Abs.Imm.Granulocyte Normal 0.00-0.30 [facility] Comment on above: Performed By: #### C DP, BMP #### [facility] [address] [place] [phone] Animal Ecologist: Josie Castro MD Abs.Neutrophil (Seg) 0.74 k/uL Low 2.1-6.5 [facility] Comment on above: Performed By: #### C DP, BMP #### [facility] [address] [place] [address] Animal Ecologist: Josie Castro MD Bands 3 % Normal 0-10 [facility] Comment on above: Performed By: #### C DP, BMP #### [facility] [address] [place] [address] Animal Ecologist: Josie Castro MD Basophil Normal 0-2 [facility] Comment on above: Performed By: #### C DP, BMP #### [facility] [address] [place] [address] Animal Ecologist: Josie Castro MD Eosinophils (Bld) [#/Vol] 0.02 10*3/uL Normal 0.0-0.4 [facility] Comment on above: Performed By: #### C DP, BMP #### [facility] [address] [place] [address] Animal Ecologist: Josie Castro MD Eosinophils/100 WBC (Bld) 1 % Normal 0-5 [facility] Comment on above: Performed By: #### C DP, BMP #### [facility] [address] [place] [address] Animal Ecologist: Josie Castro MD Immature Granulocyte Normal 0 [facility] Comment on above: Performed By: #### C DP, BMP #### [facility] [address] [place] [address] Animal Ecologist: Josie Castro MD Lymphocytes (Bld) [#/Vol] 1.03 10*3/uL Normal 1.0-4.8 [facility] Comment on above: Performed By: #### C DP, BMP #### [facility] [address] [place] [address] Animal Ecologist: Josie Castro MD Lymphocytes/100 WBC (Bld) 45 % High 13-44 [facility] Comment on above: Performed By: #### C DP, BMP #### [facility] [address] [place], [place] [phone] Animal Ecologist: Josie Castro MD Monocytes (Bld) [#/Vol] 0.44 10*3/uL Normal 0.0-1.0 [facility] Comment on above: Performed By: #### C DP, BMP #### [facility] [address] [place], [place] [phone] Animal Ecologist: Josie Castro MD Monocytes/100 WBC (Bld) 19 % High 5-9 [facility] Comment on above: Performed By: #### C DP, BMP #### [facility] [address] [place] [address] Animal Ecologist: Josie Castro MD Morphology Edmundo (Bld) [Interp] Decreased Platelets Normal [facility] Comment on above: Result Comment: FEW LARGE PLATELETS Manual Differential Performed MODERATE ANISOCYTOSIS Performed By: #### C DP, BMP #### [facility] [address] [place] [address] Animal Ecologist: Josie Castro MD Neutrophil (Seg) 32 % Low 39-75 [facility] Comment on above: Performed By: #### C DP, BMP #### [facility] [address] [place] [address] Animal Ecologist: Josie Castro MD Erythrocyte distribution width (RBC) [Ratio] 22.3 % High 12.1-15.2 [facility] Comment on above: Performed By: #### C DP, BMP #### [facility] [address] [place] [address] Animal Ecologist: Josie Castro MD Hematocrit (Bld) [Volume fraction] 24.6 % Low 41.0-53.0 [facility] Comment on above: Performed By: #### C DP, BMP #### [facility] [address] [place] [address] Animal Ecologist: Josie Castro MD Hemoglobin (Bld) [Mass/Vol] 7.8 g/dL Critically low 13.5-17.5 [facility] Comment on above: Performed By: #### C DP, BMP #### [facility] [address] [place] [address] Animal Ecologist: Josie Castro MD MCH (RBC) [Entitic mass] 31.0 pg Normal 26.0-34.0 [facility] Comment on above: Performed By: #### C DP, BMP #### [facility] [address] [place] [address] Animal Ecologist: Josie Castro MD MCHC (RBC) [Mass/Vol] 31.7 g/dL Normal 31.0-37.0 [facility] Comment on above: Performed By: #### C DP, BMP #### [facility] [address] [place] [phone] Animal Ecologist: Josie Castro MD MCV (RBC) [Entitic vol] 97.6 fL Normal 80.0-100.0 [facility] Comment on above: Performed By: #### C DP, BMP #### [facility] [address] [place] [phone] Animal Ecologist: Josie Castro MD Platelet mean volume (Bld) [Entitic vol] 15.2 fL High 6.0-12.0 [facility] Comment on above: Performed By: #### C DP, BMP #### [facility] [address] [place] [phone] Animal Ecologist: Josie Castro MD Platelets (Bld) [#/Vol] 71 10*3/uL Low 140-450 [facility] Comment on above: Performed By: #### C DP, BMP #### [facility] [address] [place], [place] [phone] Animal Ecologist: Josie Castro MD RBC (Bld) [#/Vol] 2.52 10*6/uL Low 4.50-5.90 [facility] Comment on above: Performed By: #### C DP, BMP #### [facility] [address] [place], [place] [phone] Animal Ecologist: Josie Castro MD WBC (Bld) [#/Vol] 2.3 10*3/uL Critically low 3.5-11.0 [facility] Comment on above: Performed By: #### C DP, BMP #### [facility] [address] [place], [place] [phone] Animal Ecologist: Josie Castro MD [facility] 08-04-19 24 [facility] Case Information Case Priority: None Programs: -- Referral Source: It Architecture Analyst Referral Reason: Care coordination Case Type: Transition [...] with hypoxia Chronic systolic congestive heart failure [facility] discharge follow-up Immunodeficiency due to drugs Kidney [...] Flash 2 Glucose Monitoring 14 Day System (Garibaldi), See Instructions glipiZIDE 5 mg ER Tab, [...] (min): 3 Outcome: Case discussion Contact Type: medical referral coordinator Contact Name: Puneet Mcelroy Notes: TCM#6- Spoke with spouse, see ft summary note. Created By: Puneet Mcelroy Date: July 29, 2023 Method: Phone call Type: Outbound Duration (min): 12 Outcome: Case discussion Contact Type: medical referral coordinator Contact Name: Puneet Mcelroy Notes: TCM#5- spoke with spouse, see ft summary note. Created By: Puneet Mcelroy Date: July 22, 2023 Method: Phone call Type: Outbound Duration (min): 2 Outcome: Case discussion Contact Type: medical referral coordinator Contact Name: Puneet Mcelroy Notes: TCM##4-wgt- Spoke with spouse Nicki for TCM/wgt progrtam call status update, see ft sumamry note. Created By: Puneet Mcelroy Date: July 17, 2023 Method: Phone call Type: Outbound Duration (min): 6 Outcome: Case discussion Contact Type: medical referral coordinator Contact Name: Puneet Mcelroy Notes: TCM#3-wgt, spoke with spouse, Nicki for tcm call status update, see ft summary note. Created By: Puneet Mcelroy Date: July 14, 2023 Method: Phone call Type: Inbound Duration (min): 2 Outcome: Case discussion Contact Type: Spouse Contact Name: Nicki Notes: TCM#2/wgt- Spoke with spouse Nicki for TCM/wgt, see ft summary note. Crea (more content not included)... Normal [facility] Lab Reportson 07-30-2023 Lab Reports [id number] .00TIFF [facility] Population Healthon 07-29-19 Population Health Case Information Case Priority: None Programs: -- Referral Source: It Architecture Analyst Referral Reason: Care coordination Case Type: Transition Care Management Risk Score: -- Case Status: Enrolled (July 11, 2023) Date Assigned: July 11, 2023 Assigned By: Puneet Mcelroy Date Enrolled: July 11, 2023 Assigned Primary Personnel: Puneet Mcelroy Assigned Secondary Personnel: -- Case Physician: Mick SEN, Jacquelin Davies Problems Ongoing AP (angina pectoris) 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 Created By: Puneet Mcelroy Date: July 22, 2023 Method: Phone call Type: Outbound Duration (min): 2 Outcome: Case discussion Contact Type: medical referral coordinator Contact Name: Puneet Mcelroy Notes: TCM##4-wgt- Spoke with spouse Nicki for TCM/wgt progrtam call status update, see ft sumamry note. Created By: Puneet Mcelroy Date: July 17, 2023 Method: Phone call Type: Outbound Duration (min): 6 Outcome: Case discussion Contact Type: medical referral coordinator Contact Name: Puneet Mcelroy Notes: TCM#3-wgt, [...] (min): 1 Outcome: Left message-voicemail Contact Type: medical referral coordinator Contact Name: Puneet Mcelroy Notes: TCM#2/wgt check- Attempted to contact patient for TCM/wgt status update, no answer, LM for retturn call. Created By: Puneet Mcelroy Date: July 11, 2023 Method: Phone call Type: Outbound Duration (more content not included)... [facility] Retail - Clinical Noteon Retail - Clinical Note [id number] .00TIFF [facility] Population Healthon 07-22-20 [facility] Health Case Information Case Priority: None Programs: -- Referral Source: It Architecture Analyst Referral Reason: Care coordination Case Type: Transition Care Management Risk Score: -- Case Status: Enrolled (July 11, 2023) Date Assigned: July 11, 2023 Assigned By: Puneet Mcelroy Date Enrolled: July 11, 2023 Assigned Primary Personnel: Puneet Mcelroy Assigned Secondary Personnel: -- Case Physician: Jacquelin Barton MD Ongoing AP (angina pectoris) 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 Created By: Puneet Mcelroy Date: July 17, 2023 Method: Phone call Type: Outbound Duration (min): 6 Outcome: Case discussion Contact Type: medical referral coordinator Contact Name: Puneet Mcelroy Notes: TCM#3-wgt, [...] (min): 1 Outcome: Left message-voicemail Contact Type: medical referral coordinator Contact Name: Puneet Mcelroy Notes: TCM#2/wgt check- Attempted to contact patient for TCM/wgt status update, no answer, LM for retturn call. Created By: Puneet Mcelroy Date: July 11, 2023 Method: Phone call Type: Outbound Duration (min): 8 Outcome: Case discussion Contact Type: medical referral coordinator Contact Name: Puneet Mcelroy Notes: TCM#1- Spoke with spouse for initial TCM program call status update, see ft summary note. Created By: Puneet Mcelroy [facility] Office Visiton 07-17-2023 Follow-up visit [id number] Sandip Broussard 1940 M Date Provider Department Center 07/17/2023 O[facility]O QU[facility]O [facility] Family History Problem Relation Age of Onset Hypertension Mother Stroke Father Breast cancer Sister Family Status - Relation Status Age at Mother Father Sister Level of Service:53196 [place] OFFICE/OUTPATIENT ESTABLISHED MOD MDM 30 MIN Reason for Visit and Comments: Hospital Follow-up [832] Normal [facility] Population Health 07-17-20 Population Health Case Information Case Priority: None Programs: -- Referral Source: It Architecture Analyst Referral Reason: Care coordination Case Type: Transition Care Management Risk Score: -- Case Status: Enrolled (July 11, 2023) Date Assigned: July 11, 2023 Assigned By: Puneet Mcelroy Date Enrolled: July 11, 2023 Assigned Primary Personnel: Puneet Mcelroy Assigned Secondary Personnel: -- Case Physician: Jacquelin Barton MD Problems Ongoing AP (angina pectoris) 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 Chronic kidney disease, stage 4 (severe) Chronic respiratory failure with hypoxia Chronic systolic congestive heart failure Follicular [facility] discharge follow-up Immunodeficiency due to drugs [...] Flash 2 Glucose Monitoring 14 Day System (Garibaldi), See Instructions glipiZIDE 5 mg ER Tab, [...] (min): 6 Outcome: Case discussion Contact Type: medical referral coordinator Contact Name: Puneet Mcelroy Notes: DENNIS#3-wgt, [...] (min): 1 Outcome: Left message-voicemail Contact Type: medical referral coordinator Contact Name: Puneet Mcelroy Notes: TCM#2/wgt check- Attempted to contact patient for TCM/wgt status update, no answer, LM for retturn call. Created By: Puneet Mcelroy Date: July 11, 2023 Method: Phone call Type: Outbound Duration (min): 8 Outcome: Case discussion Contact Type: medical referral coordinator Contact Name: Puneet Mcelroy Notes: TCM#1- Spoke with spouse for initial TCM program call status update, see ft summary note. Created By: Puneet Mcelroy [facility] ED Note-Physicianon 07-16-20 ED Note-Physician [id number] .00TIFF [facility] Outside IP Hospital Correspo ndenceon 07-16-2023 Outside Hospital Correspondence [id number] .00TIFF Normal [facility] Physician Referralon 023 Physician Referral [id number]# 1.00TIFF Normal [facility] RAD - MISCon 07-16-2023 RAD - MISC [id number]#1 .00TIFF Normal [facility] Family Medicine Office/Clini c Noteon 07-15-2023 Family Medicine Office/Clinic Note HPI Staff Sandip is an 82 year old male presenting for follow up anemia Hospital: [place] Admission date: 07/08 Discharge date: Symptoms the [...] documented 3008F (more content not included)... Normal [facility] Comment on above: Result Comment: Elec tronically Signed By: Mick SEN, Jacquelin Davies\.br\Date and Time Signed: 07/15/23 14:28 EST [...] numbers. This can be done either in [place] ([place] or metric measurements. Note that charts and online BMI calculators are available to help you find your BMI quickly and easily without having to do these calculations yourself. To calculate your BMI in [place] ([place] measurements: 1. Measure your weight in [...] for Disease Control and Prevention: www.cdc.gov ? [place] Heart Association: www.heart.org ? National Heart, Lung, and Blood [place]: www.nhlbi.nih.gov Summary ? Body mass index (BMI) is a number that is calculated from a person's weight and height. ? BMI may help estimate how much of a person's weight is composed of fat. BMI can help identify those who may be at higher risk for certain medical problems. ? BMI can be measured using [place] measurements or metric measurements. ? BMI charts are used to identify whether you are underweight, normal weight, overweight, or obese. This information is not intended to replace advice given to you by your health care provider. Make sure you discuss any questions you have with your health care provider. Document Revised: 04/05/2020 Document Reviewed: 02/11/2020 [employer] Patient Education ? 2022 [place]. [facility] 07-14-20 [facility] Case Information Case Priority: None Programs: -- Referral Source: It Architecture Analyst Referral Reason: Care coordination Case Type: Transition Care Management Risk Score: -- Case Status: Enrolled (July 11, 2023) Date Assigned: July 11, 2023 Assigned By: Puneet Mcelroy Date Enrolled: July 11, 2023 Assigned Primary Personnel: Puneet Mcelroy Assigned Secondary Personnel: -- Case Physician: Jacquelin Barton MD Problems Ongoing AP (angina pectoris) [...] refills, Still taking, not as prescribed: Per [facility] D/C 07/10, patient to take 1 mg QAM colchicine 0.6 mg Tab, 0.6 mg= 1 tab(s), Oral, TID, 1 refills, Not taking: per [facility] d/c 07/10, do not take Farxiga 10 mg oral tablet, 10 mg= 1 tab(s), Oral, Daily, 1 refills febuxostat, 40 mg, Oral, Daily Freestyle Carmen 2 Flash Glucose Monitoring 14 Day System (Sensor), See Instructions Freestyle Carmen Flash 2 Glucose Monitoring 14 Day System (Garibaldi), See Instructions glipiZIDE 5 mg ER Tab, 5 mg= 1 tab(s), Oral, BID, 1 refills lisinopril 10 mg Tab, See Instructions, Still taking, not as prescribed: per [facility] d/c 07/10, dose decreased, take 2.5 mg QD metolazone 2.5 mg Tab, 2.5 mg= 1 tab(s), Oral, Daily, 1 refills, Not taking: per [facility] d/c 07/10- do not take metoprolol 25 mg ER Tab, 12.5 mg= 0.5 tab(s), Oral, Daily, 1 refills Misc DME Prescription, See Instructions omeprazole 40 mg Cap-DR, 40 mg= 1 cap(s), Oral, Daily, 1 refills Potassium Chloride (Rjk-Abcw-Vij M20) 20 mEq oral tablet, extended release, 20 mEq= 1 tab(s), Oral, BID, 1 refills, Not taking: per [facility] d/c 07/10, do not take spironolactone 25 [...] (min): 1 Outcome: Left message-voicemail Contact Type: medical referral coordinator Contact Name: Puneet Mcelroy Notes: TCM#2/wgt check- Attempted to contact patient for TCM/wgt status update, no answer, LM for retturn call. Created By: Puneet Mcelroy Date: July 11, 2023 Method: Phone call Type: Outbound Duration (min): 8 Outcome: Case discussion Contact Type: medical referral coordinator Contact Name: Puneet Mcelroy Notes: TCM#1- Spoke with spouse for initial TCM program call status update, see ft summary note. Created By: Puneet Mcelroy [facility] Pre-Visit Planningon 07-14- 023 Pre-Visit Planning - From: Karen Frye To: Jacquelin Barton MD; Sent: 07/11/2023 11:03:29 EST Subject: Pre-Visit Planning Due Date/Time: 07/11/2023 11:03:00 EST Caller Name: SANDIP BROUSSARD; Caller Number: H , M Pr Dr. Barton. During a pre-visit planning chart [...] feel free to contact me at extension [phone]. Thank you! Karen Frye LPN From: Jacquelin Barton MD To: Karen Frye; Sent: 07/14/2023 12:29:52 EST Subject: RE: Pre-Visit Planning Caller Name: SANDIP BROUSSARD; Caller Number: H , -Immunodeficiency due to drugs [address] Pre-Visit Planning - From: Karen Frye To: Jacquelin Barton MD; Sent: 07/11/2023 10:52:44 EST Subject: Pre-Visit Planning Due Date/Time: 07/11/2023 10:52:00 EST Caller Name: SANDIP BROUSSARD; Caller Number: H , M Pr Dr. Barton. During a pre-visit planning chart [...] feel free to contact me at extension [phone]. Thank you! Karen Frye LPN From: Jacquelin Barton MD To: Karen Frye; Sent: 07/14/2023 12:28:56 EST Subject: RE: Pre-Visit Planning Caller Name: SANDIP BROUSSARD; Caller Number: H , M -Chronic respiratory failure with hypoxia Normal [address] [place] [address] Pre-Visit Planning - From: Karen Frye To: Jacquelin Barton MD; Sent: 07/11/2023 10:36:38 EST Subject: Pre-Visit Planning Due Date/Time: 07/11/2023 10:36:00 EST Caller Name: SANDIP BROUSSARD; Caller Number: H , M Pr Dr. Barton. During a pre-visit planning chart [...] Thank you! Karen Frye LPN From: Jacquelin Barton MD To: Karen Frye; Sent: 07/14/2023 12:27:12 EST Subject: RE: Pre-Visit Planning Caller Name: SANDIP BROUSSARD; Caller Number: , -Morbid obesity Normal [address] [place] [address] 07-11-20 [facility] Case Information Case Priority: None Programs: -- Referral Source: It Architecture Analyst Referral Reason: Care coordination Case Type: Transition Care Management Risk Score: -- Case Status: Enrolled (July 11, 2023) Date Assigned: July 11, 2023 Assigned By: Puneet Mcelroy Date Enrolled: July 11, 2023 Assigned Primary Personnel: Puneet Mcelroy Assigned Secondary Personnel: -- Case Physician: Jacquelin Barton MD Problems Ongoing AP (angina pectoris) [...] refills, Still taking, not as prescribed: Per [facility] D/C 07/10, patient to take 1 mg QAM colchicine 0.6 mg Tab, 0.6 mg= 1 tab(s), Oral, TID, 1 refills, Not taking: per [facility] /07/10, do not take Farxiga 10 mg oral tablet, 10 mg= 1 tab(s), Oral, Daily, 1 refills febuxostat, 40 mg, Oral, Daily Freestyle Carmen 2 Flash Glucose Monitoring 14 Day System (Sensor), See Instructions Freestyle Carmen Flash 2 Glucose Monitoring 14 Day System (Garibaldi), See Instructions glipiZIDE 5 mg ER Tab, 5 mg= 1 tab(s), Oral, BID, 1 refills lisinopril 10 mg Tab, See Instructions, Still taking, not as prescribed: per [facility] 07/10, dose decreased, take 2.5 mg QD metolazone 2.5 mg Tab, 2.5 mg= 1 tab(s), Oral, Daily, 1 refills, Not taking: per [facility] 07/10- do not take metoprolol 25 mg ER Tab, 12.5 mg= 0.5 tab(s), Oral, Daily, 1 refills Misc DME Prescription, See Instructions omeprazole 40 mg Cap-DR, 40 mg= 1 cap(s), Oral, Daily, 1 refills Potassium Chloride (Wjg-Prby-Pxz M20) 20 mEq oral tablet, extended release, 20 mEq= 1 tab(s), Oral, BID, 1 refills, Not taking: per [facility] d/c 07/10, do not take spironolactone 25 [...] name, street address and date of verified Program Enrollment Provides verbal consent for enrollment Goals and Interventions Care Plan Progress Note Admit Date: 07/08/23 Date of Discharge: 07/10/23 Follow-up appointment scheduled? yes, TCM f/u with PCP, Dr. Barton 07/15 @ 0476 Did you understand your discharge instructions? yes [...] with patient: (more content not included)... Normal [facility] 36on 05-28-2023 36 Wrong dosage [facility] RAD - MISCon 05-13-2023 [facility] [id number] .00TIFF Normal [facility] Family Medicine Office/Clini c Noteon 04-21-2023 [...] His last blood transfusion was today at [facility]. He was seen by his oncologist last week and the week before. He is seeing Dr. Humphrey in [place]. His oncologist is keeping him on a [...] with voice recognition artificial intelligence software, specifically [employer], [employer] and or [employer]. Substitutions may have occurred due to the inherent limitations of voice recognition and artificial intelligence software. ATTESTATION: Documentation services were performed after patient or guardian consented to allow [employer] to record this visit. VIRGEN promotions specialist and provider reviewed before signing. VIRGEN: [...] Historical No (more content not included)... Normal [facility] Comment on above: Result Comment: Elec tronically Signed By: Jacquelin Barton MD\.br\Date and Time Signed: 04/21/23 10:37 EDT\.br\Electronically Co-Signed By: Itzel Morrow\.br\Date and Time Co-Signed: 04/16/23 16:56 EDT Consent for Flu Vaccineon Consent for Flu Vaccine [id number] .00CD:127 Normal [facility] Ambulatory Visit Summaryon 0 04-16-2023 Ambulatory Visit Summary SANDIP BROUSSARD :1940 Visit Date:04/16/2023 Ambulatory Visit Instructions Your Diagnosis Primary hypertension Type 2 diabetes mellitus with diabetic nephropathy, 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 BMI 36.0-36.9,adult Class 1 obesity due to excess calories in adult Your Care Team Attending Physician - Jacquelin Barton MD Primary Care Physician - Jacquelin Barton MD This Is Your Medications List Misc Prescription (Freestyle Carmen 2 Flash Glucose Monitoring 14 Day System (Sensor)) Misc Prescription (Freestyle Carmen Flash 2 Glucose Monitoring 14 Day System (Garibaldi)) Misc Prescription (Misc DME Prescription) aspirin (aspirin [...] 40 mg Cap-DR) potassium chloride (Potassium Chloride (Tiy-Xqvp-Rww M20) 20 mEq oral tablet, extended release) [...] Friday 3:00 PM EST With: Mick SEN, Jacquelin Davies Where: [address] \.br\ Medications\.br\ What How Much When Why [...] Flash 2 Glucose Monitoring 14 Day System (Garibaldi)) See instructions Primary hypertension Type 2 diabetes mellitus with diabetic nephropathy, without long-term current use of insulin Mixed hyperlipidemia Bone marrow failure Freestyle Carmen Flash Glucose Monitoring 14 Day System (Garibaldi) \.br\ Unchanged Misc Prescription (Misc DME Prescription) See instructions One touch ultra blue test strips Use as directed to test sugars once a day \.br\ Unchanged omeprazole (omeprazole 40 mg Cap-DR) 1 Capsules By Mouth Every day\.br\ Unchanged potassium chloride (Potassium Chloride (Xfp-Nawl-Pxg M20) 20 mEq oral tablet, extended release) [...] of insulin\.br\ Urge incontinence\.br\ Urinary urgency\.br\ \.br\ [facility] 04-07-2023 Outside Labs [id number]#1 .00CD:127 Normal [facility] 03-20-2023 Outside Labs [id number]#1 .00CD:127 Normal [facility] Physician Orderon 03-19-2023 Physician Order [id number]# 1.00CD:127 Normal [facility] .Interpretation:on 3 HCV Ab IA Ql Comment Invalid Interpretation Code [facility] Comment on above: Result Comment: Not infected with HCV unless early or acute infection is suspected (which may be delayed in an immunocompromised individual), or other evidence exists to indicate HCV infection. Performed at: [facility] [id number] PhD Mingo Mckeon Performed By: #### 2 [id number], [id number], 9488155, [id number], 1794565818, 104766828, 3715803, 6272851908, 4316001, 8052399, 5666592, 3757924641, 1456376, 0127316, 9325309, 14746574, 1948527, 833354176, 2594969298, 77309037, 3586678, 4040114, [id number] ####[address] [place] [address] Comp panel: Leuk/Lym [id number] n 03-18-2023 Analysis and Gating Strategy Comment Invalid Interpretation Code [facility] Comment on above: Result Comment: 8 co tete analysis with CD45/SSC gating Technical-Analysis performed at [facility], [address] [place] [address] Director: Lisa Anguiano [facility] Performed By: #### 2 [id number], [id number], 4068966, 9333923323, 4010431247, 326105589, 4336381, 8127216708, 4462846, 7742756, 2098589, 6427623802, 2728840, 5907287, 8747475, 71847746, 9332878, 810672823, 5134690695, 66089852, 6247176, 7444900, 1334822989 ####[facility] [address] [place] [address] Annotation comment [Interpretation] Narrative Comment Invalid Interpretation Code [facility] Comment on above: Result Comment: If m onocytosis (absolute count >= 500/uL and >= 10% of leukocytes) persists for > 3 months without secondary etiologies identified, further evaluation of a myeloid neoplasm, such as chronic myelomonocytic leukemia, is warranted if clinically indicated. Recommend clinical correlation. Performed By: #### 2 [id number], [id number], 4099387, 7210279227, 4466435878, 773955150, 1694484, 3147079963, 2139912, 1646553, 1878688, 6610289706, 3337865, 5906972, 8654005, 20430320, 4645986, 889604020, 6803031027, 83395426, 4088911, 4966522, 6631903239 ####[facility] [address] [place] [address] Assessment of Leukocytes Comment Invalid Interpretation Code [facility] Comment on above: Result Comment: [...] NK cells 22% Performed By: #### 2 [id number], 4687330736, 4820043, 7339133201, 0119400355, 429879141, 5516790, 4244386205, 5662275, 8974240, 6514953, 0038023719, 2141766, 7044456, 0019713, 97876654, 6628602, 211004588, 5273276447, 33841069, 0255864, 0233884, 3991108799 ####[facility] [address] [place] [address] CLINICAL INFORMATION:FIND:PT: Comment Invalid Interpretation Code [facility] Comment on above: Result Comment: A re cent CBC was not available for review at the time this report was prepared. Performed By: #### 2 [id number], [id number], 3320473, 4484179289, 6363340414, 625074541, 2860703, 8915799513, 0304563, 5786666, 8726153, 8704846710, 7168459, 3427973, 9524045, 45989614, 2550641, 084771677, 3576260586, 88340336, 1657322, 7440757, 2823911392 ####[facility] [address] [place] [address] Immunophenotyping study Comment Invalid Interpretation Code [facility] Comment on above: Result Comment: CD2 Normal CD3 Normal CD4 Normal CD5 Normal CD7 Normal CD8 Normal CD10 Normal CD11b Normal CD13 Normal CD14 Normal CD16 Normal CD19 Normal CD20 Normal CD33 Normal CD34 Normal CD38 Normal CD45 Normal CD56 See Text CD57 Normal CD117 Normal HLA-DR Normal KAPPA Normal LAMBDA Normal CD64 Normal Performed By: #### 2 [id number], 3624090137, 9505820, 3915173494, 8600513724, 471101119, 4942825, 0492611390, 3080491, 5079467, 2020640, 2423433859, 8203609, 6486843, 9921615, 39010293, 5724518, 345840324, 9121327298, 39294741, 8310375, 5421521, 9429669487 ####[facility] [address] [place] [address] Laboratory comment Edmundo (Report) Comment Invalid Interpretation Code [facility] Comment on above: Result Comment: Each antibody in this assay was utilized to assess for potential abnormalities of studied cell populations or to characterize identified abnormalities. This test was developed and its performance characteristics determined by [facility]. It has not been cleared or approved by the U.S. Food and Drug Administration. The FDA has determined that such clearance or approval is not necessary. This test is used for clinical purposes. It should not be regarded as investigational or for research. Performed at: -Y [facility] [address] [facility] [place], [place] [id number] [facility] Silvio Gonzalez Performed at: TG [facility] [address] [facility] [place], [place] [id number] [facility] Silvio Bhumisavannah Performed By: #### 2 [id number], [id number], 1595557, 6168608131, 5860478053, 964237640, 0779753, 3134630284, 4461281, 7101878, 2638862, 8785252809, 8654392, 2839645, 1727335, 84354782, 1175583, 707010014, 1487580577, 48615241, 8361478, 8306225, [id number] ####[facility] [address] [place] [address] Pathologist interpretation (Unsp spec) [Interp] Comment Invalid Interpretation Code [facility] Comment on above: Result Comment: Aber rant monocytosis and left shifted neutrophils, see comment. Performed By: #### 2 [id number], 5293250923, 3675031, 2861131798, 6287475291, 132989519, 6722298, 1600560392, 8175989, 8858703, 4183741, [id number], 7424815, 0584801, 7913531, 85389413, 9802119, 210803864, 4832539867, 56321002, 7849287, 6186282, 1219073465 ####[facility] [address] [place] [address] Pathologist name Comment Invalid Interpretation Code [facility] Comment on above: Result Comment: Esdras Alexandra M.D. Performed By: #### 2 [id number], 3741971675, 8346422, 7412835845, 5266658139, 401207385, 5207286, 0090778814, 5117403, 9014759, 8154011, 9994727830, 2932779, 2881498, 5228386, 56304435, 3375944, 935031888, 0800430087, 07493497, 0373173, 3328015, 1344816739 ####[facility] [place] [address] Specimen source Nom (Unsp spec) Comment Invalid Interpretation Code [facility] Comment on above: Result Comment: Molly pheral blood Performed By: #### 2 029058147, 3274681468, 7596108, 1306443887, 0270752972, 809894433, 4751247, 7685659678, 4348396, 6060967, 4094619, 7688749913, 7618984, 6719797, 3849049, 69083273, 1738290, 136126633, 5058981920, 54197477, 3506129, 4668991, 5096753861 ####[address] [place] [address] Viable cells/100 cells (Unsp spec) Comment Invalid Interpretation Code [facility] Comment on above: Result Comment: 84% Performed By: #### 2 775393146, 5590256584, 3266575, 3833303675, 4322332514, 677947823, 1285395, 8914932160, 9657149, 7334834, 7230555, 3746239087, 1703871, 7356272, 1504788, 12641846, 7656677, 524677645, 2663393158, 19431906, 4863163, 1268342, 7607302921 ####[address] [place] [address] Copper Lvlon 03-18-2023 Copper [Mass/Vol] 73 microgram/dL Invalid Interpretation Code 69-132 [facility] Comment on above: Result Comment: This test was developed and its performance characteristics determined by [employer]. It has not been cleared or approved by the Food and Drug Administration. Detection Limit = 5 Performed at: [address] [id number] MD Ronaldo Dao Performed By: #### 2 081425113, 9610373356, 3068476, 7399332027, 9804350354, 331173363, 5901021, 9121012889, 9582139, 8679550, 5718390, 7333378788, 3504500, 6112817, 4263086, 47895083, 9956973, 272875610, 8764663953, 53816392, 6036689, 5233825, 9718860814 ####[facility] [address] [place] [address] Flow Interp 16 or moreon Flow Interp 16 or more Performed Invalid Interpretation Code [facility] Comment on above: Result Comment: Perf ormed at: -Y [facility] [address], [place] [id number] [facility] Silvio Gonzalez Performed By: #### 2 835330429, 1222335179, 0223435, 6784226002, 2794651810, 359447014, 2436660, 1869129050, 4169247, 7861510, 5132049, 7068971280, 9102104, 5586033, 0473020, 64718749, 9461875, 814826220, 3736844352, 82876027, 9897935, 4033843, 2660775846 ####[facility] [address] [place] [address] Flow Marker, Firston 023 Flow Marker, First Performed Invalid Interpretation Code [facility] Comment on above: Result Comment: Perf ormed at: -Y [facility] [address], [place] [id number] [facility] Silvio Gonzalez Performed By: #### 2 318396814, 1510036280, 9872935, 0751909009, 6533159544, 128531391, 3005700, 7379225754, 4269696, 1178358, 6095861, 9768618210, 8173518, 7123585, 9192680, 96650122, 2162373, 072995763, 5308464504, 76735696, 7917599, 2962632, 4247515936 ####[facility] [address] [place] [address] Flow Markers X 15on 03-18-20 23 Flow Markers X 15 Performed Invalid Interpretation Code [facility] Comment on above: Result Comment: Perf ormed at: -Y [facility] [address] [facility] [place] [place] Insticator [facility], [place] [id number] [facility] Anjen Performed By: #### 2 499878845, 2161689865, 0448692, 4669217261, 2306332537, 305276086, 6522646, 6892730541, 1176713, 1559492, 5099830, 7269409935, 3438268, 0773981, 4139708, 77049216, 3822831, 792095689, 0335847916, 69469789, 0449322, 8073833, 7768185544 ####[address] [place] [address] Flow Markers X 3on 3 Flow Markers X 3 Performed Invalid Interpretation Code [facility] Comment on above: Result Comment: Perf ormed at: -Y [facility] [address] [facility], [place] [id number] [facility] Chenn Anjen Performed By: #### 2 175797033, 3805853214, 3485657, 4541088730, 8697042367, 636228429, 9817036, 7955487691, 2296284, 4305013, 6865429, 6441282521, 8363581, 1470415, 8072482, 77228162, 0131760, 800843573, 9384219914, 29923427, 6575698, 0337862, 5266217951 ####[facility] [address] [place] [address] Flow Markers X 5on 3 Flow Markers X 5 Performed Invalid Interpretation Code [facility] Comment on above: Result Comment: Perf ormed at: -Y [facility] [address] [facility], [place] [id number] [facility] Silvio Gonzalez Performed By: #### 2 165001622, 0750898908, 8790199, 1743260403, 9908283677, 132540466, 1832008, 4747982531, 2962654, 7653058, 9158200, 9141465392, 0156049, 4681747, 0973141, 69159613, 8914167, 366541486, 1351824867, 85830978, 9389156, 8781985, 5946773379 ####[facility] [address] [place] [address] HCV Antibody RFX to Quant PC Zach 03-18-2023 HCV IgG IA Ql Non-Reactive Invalid Interpretation Code Non Reactive [facility] Comment on above: Result Comment: Perf ormed at: [employer] [id number] PhD Mingo Mckeon Performed By: #### 2 156102178, 7549932142, 3973424, 2015324762, 5414605686, 355100780, 6932563, 3811737988, 6598261, 3849923, 3311228, 6459945903, 8781538, 1452432, 7799823, 14077005, 3800301, 123680221, 6738028335, 63713551, 2715783, 1305169, 0754270473 ####[facility] [address] [place] [address] HIV Screen 4th Generation wR fxon 03-18-2023 HIV 1+2 Ab+HIV1 p24 Ag IA Ql Non-Reactive Invalid Interpretation Code Non Reactive [facility] Comment on above: Result Comment: HIV Negative HIV-1/HIV-2 antibodies and HIV-1 p24 antigen were NOT detected. There is no laboratory evidence of HIV infection. Performed at: [facility] [address] [place] [id number] PhD Mingo Mckeon Performed By: #### 2 475580818, 8000005156, 5673579, 2431582263, 1564174490, 925326348, 3619919, 7235602175, 4864241, 0524581, 7058244, 4551318319, 0359405, 8945427, 6711427, 91596306, 0757759, 187889184, 8428665435, 29449657, 2431332, 7942348, 2954891886 ####[facility] [address] [address] Hep A IgMon 03-18-2023 HAV IgM IA Ql Negative Invalid Interpretation Code Negative [facility] Comment on above: Result Comment: Perf ormed at: [address] [id number] PhD Mingo Mckeon Performed By: #### 2 771419442, 1342145091, 9313136, 0761510489, 9480319278, 741840864, 3960611, 0082370402, 9769728, 6053087, 2321116, 3921040073, 3863949, 1529090, 0793546, 94332464, 7496616, 849107020, 2323540806, 59648417, 7250771, 4040601, 9079375735 ####[facility] [address] [address] Hep B Core Ab, IgMon 023 HBV core IgM IA Ql Negative Invalid Interpretation Code Negative [facility] Comment on above: Result Comment: Perf ormed at: [address] [id number] PhD Mingo Mckeon Performed By: #### 2 939304080, 2945805383, 5146778, 9403996825, 4173037302, 287890000, 4558820, 3309008260, 3588485, 6730085, 3960017, 0219988152, 5154077, 7588364, 9306448, 70925568, 6705971, 727458398, 8786037772, 57156912, 8742667, 9927216, 2564504587 ####[address] [place] [address] Hep Bs Abon 03-18-2023 HBV surface Ab Ql (S) Non-Reactive Invalid Interpretation Code [facility] Comment on above: Result Comment: Non Reactive: Inconsistent with immunity, less than 10 mIU/mL Reactive: Consistent with immunity, greater than 9.9 mIU/mL Performed at: [facility] [address] [place] [address] [id number] PhD Mingo Mckeon Performed By: #### 2 653337591, 8973599781, 6748926, 2601274577, 1648830540, 398201246, 3171740, 0562365315, 3960037, 3465883, 9537034, 3222013489, 0899420, 2231564, 9999001, 22364924, 9581801, 739461559, 7788522881, 58550569, 9773502, 6060420, 0139445303 ####[address] [place] [address] Hep Bs Agon 03-18-2023 HBV surface Ag IA Ql Negative Invalid Interpretation Code Negative [facility] Comment on above: Result Comment: Perf ormed at: [address] [id number] PhD Mingo Mckeon Performed By: #### 2 125050497, 4031206665, 9385954, 6512422687, 8457054097,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 Hemoglobin Ql (U) Negative Normal Negative [facility] Comment on above: Order Comment: micro hematuria Performed By: #### 1 9227451 ####[address] [address] Ketones (U) [Mass/Vol] Negative Normal Negative [facility] Comment on above: Order Comment: micro hematuria Performed By: #### 1 6654644 ####[address] [address] Haven.plasma/Lithiu m.RBC (Bld) [Mass ratio] 0-3 Normal 0-3 [facility] Comment on above: Order Comment: micro hematuria Performed By: #### 1 6806824 ####[address] [address] Nitrite Ql (U) Negative Normal Negative [facility] Comment on above: Order Comment: micro hematuria Performed By: #### 1 0646859 ####[address] [address] pH (U) 6.0 [pH] Invalid Interpretation Code 5.0-9.0 [facility] Comment on above: Order Comment: micro hematuria Performed By: #### 1 4184877 ####[address] [address] Protein (U) [Mass/Vol] Negative Normal Negative [facility] Comment on above: Order Comment: micro hematuria Performed By: #### 1 1508548 ####[address] [address] Specific gravity (U) [Rel density] <=1.005 Invalid Interpretation Code 1.005-1.030 [facility] Comment on above: Order Comment: micro hematuria Performed By: #### 1 7706238 ####[address] [place] [address] Type of Urine collection method Random Urine Normal [facility] Comment on above: Order Comment: micro hematuria Performed By: #### 1 6589933 ####[facility] [address] [place] [address] Urobilinogen Qn (U) 0.2 {Dav'U}/dL Normal 0.0-1.0 [facility] Comment on above: Order Comment: micro hematuria Performed By: #### 1 0775091 ####[facility] [address] [place] [address] WBC Auto Ql (U) Negative Normal Negative [facility] Comment on above: Order Comment: micro hematuria Performed By: #### 1 2523194 ####[address] [address] WBC LM.HPF (Urine sed) [#/Area] 0-5 Normal 0-5 [facility] Comment on above: Order Comment: micro hematuria Performed By: #### 1 3629126 ####[facility] [address] [place] [address] Vit B12on 03-11-2023 Cobalamin (Vitamin B12) [Mass/Vol] 457 pg/mL Normal 50-1500 [facility] Comment on above: Performed By: #### 2 836372699, 6800782595, 4237993, 8451391341, 5764795216, 692963330, 3309862, 5011929129, 3279994, 7056064, 9829418, 7435100306, 3286180, 8922012, 1610432, 48312875, 4283534, 266507560, 5963904120, 01249702, 6528204, 8192834, 2253663278 ####[address] [address] eGFRon 03-11-2023 GFR/1.73 sq M.predicted among non-blacks MDRD (S/P/Bld) [Vol rate/Area] 34 mL/min/1.73 m2 Low >=59 [facility] Comment on above: Order Comment: Order added by Discern Expert. 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 Kidney failure is indicated at less than 15 mL/min/1.73m2. Performed By: #### 2 958354301, 1763359211, 1184073, 8052743483, 5162815499, 677205828, 9920327, 9563010325, 2944798, 2554463, 3450004, 0974728004, 4860872, 3926082, 7372102, 22932631, 9929235, 310957674, 0528835088, 76668495, 8094914, 2129027, 2918859916 #### [facility] [address] [place] [address] Ambulatory Visit Summaryon 0 03-10-2023 Ambulatory Visit Summary SANDIP BROUSSARD :1940 Visit Date:03/10/2023 Ambulatory Visit Instructions Your Diagnosis Annual visit for general adult medical examination without abnormal findings Chronic systolic congestive heart failure BPH without obstruction/lower urinary tract symptoms AP (angina pectoris) Primary hypertension Class 1 obesity due to excess calories in adult BMI 34.0-34.9,adult Your Care Team Attending Physician - Jacquelin Barton MD Primary Care Physician - Jacquelin Barton MD This Is Your Medications List [facility] Prescription (Freestyle Carmen 2 Flash Glucose Monitoring 14 Day System (Sensor)) [facility] Prescription (Freestyle Carmen Flash 2 Glucose Monitoring 14 Day System (Garibaldi)) [facility] Prescription (Misc DME Prescription) aspirin (aspirin 81 [...] 40 mg Cap-DR) potassium chloride (Potassium Chloride (Nms-Htkk-Uyn M20) 20 mEq oral tablet, extended release) [...] Oncology Friday 2:40 PM EDT With: Jacquelin Barton MD Where: [facility] Ambulatory Visit Summary SANDIP BROUSSARD :1940 Visit Date:03/10/2023 Ambulatory Visit Instructions Your Diagnosis Annual visit for general adult medical examination without abnormal findings Chronic systolic congestive heart failure BPH without obstruction/lower urinary tract symptoms AP (angina pectoris) Primary hypertension Class 1 obesity due to excess calories in adult BMI 34.0-34.9,adult Your Care Team Attending Physician - Jacquelin Barton MD. Primary Care Physician - Jacquelin Barton MD This Is Your Medications List [facility] Prescription (Freestyle Carmen 2 Flash Glucose Monitoring 14 Day System (Sensor)) [facility] Prescription (Freestyle Carmen Flash 2 Glucose Monitoring 14 Day System (Garibaldi)) [facility] Prescription (Misc DME Prescription) aspirin (aspirin 81 [...] 40 mg Cap-) potassium chloride (Potassium Chloride (Kvk-Gjtz-Tow M20) 20 mEq oral tablet, extended release) [...] Oncology Friday 2:40 PM EDT With: Jacquelin Barton MD Where: [facility] Patient Educationon 03-10-20 Patient Education Cardiovascular Angina [...] these instructions at home: Medicines ? Take cybz-ppm-dngjmpz and prescription medicines only as told by [...] can dri (more content not included)... Normal [facility] Family Medicine Office/Clini c [place] 02-17-2023 Family Medicine Office/Clinic Note Chief Complaint ER follow up HPI Staff ER follow up ER followup: Hospital: [place] Visit date: 02/04/23: pt got 4units of [...] with voice recognition artificial intelligence software, specifically [employer], [employer] and or [employer]. Substitutions may have occurred due to the inherent limitations of voice recognition and artificial intelligence software. ATTESTATION: Documentation services were performed after patient or guardian consented to allow [employer] to record this visit. VIRGEN promotions specialist and provider reviewed before signing. VIRGEN: [...] mg Tab, 2.5 (more content not included)... [facility] Comment on above: Result Comment: Elec tronically Signed By: Jacquelin Barton MD\.br\Date and Time Signed: 02/17/23 12:06 EDT\.br\Electronically Co-Signed By: Maria Ines Puente.br\Date and Time Co-Signed: 02/13/23 18:35 EDT Physician Referralon 023 Physician Referral [id number]# 1.00CD:127 [facility] Outside IP Hospital Correspo ndenceon 02-07-2023 Outside [facility] Correspondence [id number]#1 .00CD:127 Normal [facility] Urinalysison 01-11-2023 Bilirubin Ql (U) Negative Normal Negative [facility] Comment on above: Performed By: #### 1 6752358, 99330495 ####[facility] [address] [place] [address] Clarity (U) CLEAR Normal Clear [facility] Comment on above: Performed By: #### 1 2194567, 04243816 ####[facility] [address] [place] [address] Color (U) YELLOW Normal Yellow [facility] Comment on above: Performed By: #### 1 6226136, 44982162 ####[facility] [address] [place] [address] Epithelial cells.squamous LM.HPF (Urine sed) [#/Area] 0-2 Normal 0-2 [facility] Comment on above: Performed By: #### 1 4029793, 97450562 ####[facility] [address] [place] [address] Glucose Test strip (U) [Mass/Vol] 3+ Abnormal Negative [facility] Comment on above: Performed By: #### 1 4245317, 92049774 ####[facility] [address] [place] [address] Hemoglobin Ql (U) Negative Normal Negative [facility] Comment on above: Performed By: #### 1 7348297, 26187075 ####[facility] [address] [place] [address] Ketones (U) [Mass/Vol] Negative Normal Negative [facility] Comment on above: Performed By: #### 1 3343775, 33203206 ####[facility] [address] [place] [address] Haven.plasma/Lithiu m.RBC (Bld) [Mass ratio] 0-3 Normal 0-3 [facility] Comment on above: Performed By: #### 1 8506794, 34007971 ####[address] [address] Nitrite Ql (U) Negative Normal Negative [facility] Comment on above: Performed By: #### 1 7433735, 06717941 ####[address] [address] pH (U) 6.5 [pH] Invalid Interpretation Code 5.0-9.0 [facility] Comment on above: Performed By: #### 1 8766773, 10760860 ####[address] [address] Protein (U) [Mass/Vol] Negative Normal Negative [facility] Comment on above: Performed By: #### 1 4132989, 99073013 ####[address] [address] Specific gravity (U) [Rel density] 1.010 Invalid Interpretation Code 1.005-1.030 [facility] Comment on above: Performed By: #### 1 6616256, 41115316 ####[address] [address] Type of Urine collection method Clean Catch Normal [facility] Comment on above: Performed By: #### 1 8451522, 35011839 ####[address] [address] Urobilinogen Qn (U) 0.2 {Dav'U}/dL Normal 0.0-1.0 [facility] Comment on above: Performed By: #### 1 5829616, 61804805 ####[address] [address] WBC Auto Ql (U) Negative Normal Negative [facility] Comment on above: Performed By: #### 1 4141525, 02938581 ####[address] [address] WBC LM.HPF (Urine sed) [#/Area] 0-5 Normal 0-5 [facility] Comment on above: Performed By: #### 1 5356581, 01413063 ####[facility] [address] [place] [address] CHEMISTRYOrdered By: José Luis Cat on 01-10-2023 Albumin DL <= 20 mg/L (U) [Mass/Vol] microgram/mL Normal 0.0 - 19.0 mcg/mL [facility] Remisol Albumin Elph (U) [Mass fraction] 6.1 mg/dL Invalid Interpretation Code [facility] Remisol Creatinine (U) [Mass/Vol] 47.9 mg/dL Invalid Interpretation Code [facility] Remisol U Prot/Creat Ratio 127.30 mg/gm Cr Normal 0.00 - 200.00 mg/gm Cr [facility] Remisol Nurse Consultation Noteon Nurse Consultation Note [...] mg= 1 cap(s), Oral, Daily Potassium Chloride (Nys-Plne-Bne M20) 20 mEq oral tablet, extended release, [...] influenza virus vaccine, inactivated 05/23/2013 Recorded Normal [facility] U Microalbon 01-10-2023 Albumin DL <= 20 mg/L (U) [Mass/Vol] mg/dL Normal 0.0-19.0 [facility] Comment on above: Performed By: #### 1 7026865, 86855107 ####[facility] [address] [place] [address] U Protein/Creat Ratioon 12-26 Albumin Elph (U) [Mass fraction] 6.1 mg/dL Invalid Interpretation Code [facility] Comment on above: Result Comment: The reference range and other method performance specifications have not been established for this test; results should be integrated into the clinical context for interpretation. Performed By: #### 1 107917121 ####[facility] [address] [place] [address] Creatinine (U) [Mass/Vol] 47.9 mg/dL Invalid Interpretation Code [facility] Comment on above: Result Comment: The reference range and other method performance specifications have not been established for this test; results should be integrated into the clinical context for interpretation. Performed By: #### 1 791195836 ####[facility] [address] [place] [address] U Prot/Creat Ratio 127.30 mg/gm Cr Normal .00-200.00 F [facility] Comment on above: Performed By: #### 1 572829987 ####[facility] [address] [place] [address] Lab Reportson 01-08-2023 Lab Reports [id number]#1. 00CD:127 Normal [facility] Lab Reports [id number]#1 .00CD:127 Normal [facility] Lab Reports [id number]#1. 00CD:127 Normal [facility] Formson 01-07-2023 Forms [id number]#1 .00CD:127 Normal [facility] Path. Reviewon 01-07-2023 Path Review Pancytopenia with mild polychromasia and anisocytosis of RBCs. No increase of schistocytes seen. Invalid Interpretation Code [facility] Comment on above: Order Comment: Order Added by Discern Expert. Performed By: #### 2 116889, 0275405, 88942450, 8758172, 35331459, 20572957, 938123015 ####[facility] [address] [place] [address] Path. Review Pancytopenia with mild polychromasia and anisocytosis of RBCs. No increase of schistocytes seen. D61.818 CPT 04044 Invalid Interpretation Code [facility] Comment on above: Other Comment: Order Added by Discern Expert. Reminderson 01-07-2023 Reminders - From: Brittany Hull DO To: Mick SEN, Jacquelin Davies; Sent: 01/07/2023 12:25:00 EDT Show up: 01/07/2023 12:24:00 EDT Subject: Ambulatory Reminder Due Date/Time: 01/08/2023 12:23:00 EDT just wanted you be aware of pancytopenia Results: Date Result Type Result Name 01/07/2023 9:00 Document - DOC Path Review Normal [facility] Reminders - From: Brittany Hull [...] ((H)) 36.4 pg (27.0 - 34.0) 01/06/2023 12:01 MCHC 32.3 gm/dL (31.4 - 36.0) 01/06/2023 12:01 RDW ((H)) 31.5 % (10.9 - 14.2) 01/06/2023 12:01 Platelet ((L)) 89.0 E9/L (150.0 - 500.0) 01/06/2023 12:01 MPV ((H)) 13.2 fL (6.4 - 10.8) 01/06/2023 12:01 Segs Man 50 % (36 - 75) 01/06/2023 12:01 Band Man 5 % (0 - 10) 01/06/2023 12: Lymph Man 30 % (14 - 50) 01/06/2023 12: Monocyte Man 7 % (4 - 14) 01/06/2023 12:01 Eos Man 0 % (0 - 8) 01/06/2023 12: Basophil Man 1 % (0 - 2) 01/06/2023 12: Myelo Man ((H)) 5 % ( - <=0) 01/06/2023 12: React Lymph Man ((H)) 2 % ( - <=0) 01/06/2023 12: Segs Abs Man ((L)) 1.4 E9/L (2.0 - 7.5) 01/06/2023 12: Lymph Abs Man ((L)) 0.8 E9/L (1.0 - 4.0) 01/06/2023 12: [place] Abs Man 0.2 E9/L (0.2 - 1.0) 01/06/2023 12: Eos Abs Man 0.0 E9/L (0.0 - 0.5) 01/06/2023 12: Basophil Abs Man 0.0 E9/L (0.0 - 0.2) 01/06/2023 12: RBC Morph See Morphology 01/06/2023 12:01 Anisocytosis Present 01/06/2023 12:01 Macrocyte Present 01/06/2023 12:01 Hypochromasia Present 01/06/2023 12: Ovalocytes Present 01/06/2023 12: Large Plt Present 01/06/2023 12:01 Glucose Lvl 192 mg/dL (55 - 199) 01/06/2023 12: BUN ((H)) 41 mg/dL (5 - 21) 01/06/2023 12: Creatinine ((H)) 2.2 mg/dL (0.5 - 1.3) 01/06/2023 12:01 eGFR ((L)) 29 mL/min/1.73 m2 (>=59 - ) 01/06/2023 12: BUN/Creat Ratio 19 (10 - 20) 01/06/2023 [...] ((H)) 8.1 % ( - <=5.9) Normal [facility] .Manual Abson 01-06-2023 Basophils/Leukocytes Manual cnt (Bld) [Pure # fraction] 0.0 E9/L Normal 0.0-0.2 [facility] Comment on above: Performed By: #### 2 504086, 0194569, 98408428, 3736271, 76769007, 70479150, 412312059 ####[facility] [address] [place] [address] Eosinophils/Leukocyte s Manual cnt (Bld) [Pure # fraction] 0.0 E9/L Normal 0.0-0.5 [facility] Comment on above: Performed By: #### 2 621428, 2462684, 75217344, 1701494, 09460592, 34561572, 544016541 ####[facility] [address] [place] [address] Lymphocytes/Leukocyte s Manual cnt (Bld) [Pure # fraction] 0.8 E9/L Low 1.0-4.0 [facility] Comment on above: Performed By: #### 2 184280, 1149175, 41494117, 0816854, 23444694, 70561789, 616629832 ####[facility] [address] [place] [address] Monocytes/Leukocytes Manual cnt (Bld) [Pure # fraction] 0.2 E9/L Normal 0.2-1.0 [facility] Comment on above: Performed By: #### 2 980026, 5736556, 81086117, 6053796, 88131981, 51852273, 088814928 ####[facility] [address] [place] [address] Neutrophils/Leukocyte s Auto (Bld) [Pure # fraction] 1.4 E9/L Low 2.0-7.5 [facility] Comment on above: Performed By: #### 2 743171, 5902448, 39324004, 3184054, 85716784, 83976731, 897733421 ####[facility] [address] [place] [address] Ambulatory Visit Summaryon 0 01-06-2023 Ambulatory Visit Summary AARTI SANDIP A :1940 Visit Date:01/06/2023 Ambulatory Visit Instructions Your Diagnosis Hospice care AP (angina pectoris) Diabetes BPH without obstruction/lower urinary tract symptoms Hyperlipidemia Hypertension Renal failure Bone marrow failure Systolic CHF Pulmonary HTN BMI 34.0-34.9,adult Class 1 obesity due to excess calories in adult Your Care Team Attending Physician - Jacquelin Barton MD Primary Care Physician - Jacquelin Barton MD This Is Your Medications List [...] 40 mg Cap-DR) potassium chloride (Potassium Chloride (Yei-Oesv-Wdb M20) 20 mEq oral tablet, extended release) [...] Friday 2:00 PM EDT With: Where: [place] [id number] \.br\ Medications\.br\ What How Much When Instructions\.br\ [...] concerns \.br\ Unchanged potassium chloride (Potassium Chloride (Mge-Fvgl-Lbt M20) 20 mEq oral tablet, extended release) [...] numbers. This can be done either in [place] or metric measurements. Note that charts and online BMI calculators are available to help you find your BMI quickly and easily without having to do these calculations yourself.\.br\ To calculate your BMI in [place] measurements:\.br \ \.br\ 1. \.br\ Measure [...] Disease Control and Prevention: www.cdc.gov\.br\ ? \.br\ Swedish Heart Association: www.heart.org\.br \ ? \.br\ National Heart, Lung, and Blood [place]: www.nhlbi.nih.gov \.br\ Summary\.br\ ? \.br\ Body mass index (BMI) is a number that is calculated from a person's weight and height.\.br\ ? \.br\ BMI may help estimate how much of a person's weight is composed of fat. BMI can help identify those who may be at higher risk for certain medical problems.\.br\ ? \.br\ BMI can be measured using [place] measurements or metric measurements.\.br \ ? \.br\ BMI charts are used to identify whether you are underweight, normal weight, overweight, or obese.\.br\ This information is not intended to replace advice given to you by your health care provider. Make sure you discuss any questions you have with your health care provider.\.br\ Document Revised: 04/05/2020 Document Reviewed: 02/11/2020 [employer] Patient Education ? 2022 [employer].br\ \.br\ [facility] Ambulatory Visit Summary SANDIP BROUSSARD :1940 Visit Date:01/06/2023 Ambulatory Visit Instructions Your Diagnosis Hospice care AP (angina pectoris) Diabetes BPH without obstruction/lower urinary tract symptoms Hyperlipidemia Hypertension Renal failure Bone marrow failure Systolic CHF Pulmonary HTN BMI 34.0-34.9,adult Class 1 obesity due to excess calories in adult Your Care Team Attending Physician - Jacquelin Barton MD. Primary Care Physician - Jacquelin Barton MD. This Is Your Medications List aspirin (aspirin [...] 40 mg Cap-DR) potassium chloride (Potassium Chloride (Sgy-Roph-Gjx M20) 20 mEq oral tablet, extended release) [...] Friday 2:40 PM EDT With: Mick SEN, Jacquelin Davies Where: [facility] Normal [facility] CBC w/ Auto Diffon 3 Erythrocyte distribution width (RBC) [Ratio] 31.5 % High 10.9-14.2 [facility] Comment on above: Performed By: #### 2 154279, 4670064, 74319023, 8558420, 69881020, 98695124, 021533826 ####[facility] [address] [place] [address] Hematocrit (Bld) [Volume fraction] 18.1 % Low 37.7-49.0 [facility] Comment on above: Performed By: #### 2 308689, 9588175, 53397018, 3551302, 06606503, 74518736, 073525956 ####[facility] [address] [place] [address] Hemoglobin (Bld) [Mass/Vol] 5.9 g/dL Abnormal 13.5-17.5 [facility] Comment on above: Result Comment: Resu lts Called To dr sparks By And Read Back For Confirmation On 01/06/2023 19:53:45 EDT. Performed By: #### 2 720116, 5983591, 57599084, 4709485, 19227486, 43329819, 733456895 ####[facility] [address] [place] [address] MCH (RBC) [Entitic mass] 36.4 pg High 27.0-34.0 [facility] Comment on above: Performed By: #### 2 415192, 9146782, 07751257, 7704402, 91309244, 96468592, 449072614 ####[facility] [address] [place] [address] MCHC (RBC) [Mass/Vol] 32.3 g/dL Normal 31.4-36.0 [facility] Comment on above: Performed By: #### 2 680549, 3891840, 64500731, 6232607, 28580773, 50754154, 370019883 ####[address] [address] MCV (RBC) [Entitic vol] 112.5 fL High 80.0-100.0 [facility] Comment on above: Performed By: #### 2 232818, 7333837, 42867489, 8966633, 74243841, 54647243, 567511656 ####[address] [address] Platelet mean volume (Bld) [Entitic vol] 13.2 fL High 6.4-10.8 [facility] Comment on above: Performed By: #### 2 648792, 7136661, 15768124, 8677163, 68186250, 68816769, 147630014 ####[address] [address] Platelets (Bld) [#/Vol] 89.0 E9/L Low 150.0-500.0 [facility] Comment on above: Performed By: #### 2 346561, 9172735, 84542652, 9616248, 47606823, 83352548, 269627264 ####[place] [address] [place] [address] RBC (Bld) [#/Vol] 1.6 E12/L Low 4.3-5.9 [facility] Comment on above: Performed By: #### 2 967766, 3003468, 40147912, 4637398, 98880134, 97925741, 919123251 ####[address] [address] WBC corrected for nucl RBC Auto (Bld) [#/Vol] 2.5 E9/L Low 4.0-11.0 [facility] Comment on above: Performed By: #### 2 336391, 0382474, 84021350, 0777838, 49761169, 08338712, 453770722 ####[facility] [address] [place] [address] CMPon 01-06-2023 Albumin [Mass/Vol] 3.2 g/dL Low 3.3-5.0 [facility] Comment on above: Performed By: #### 2 768107, 8836396, 95450844, 0741287, 81647471, 35041312, 925491466 ####[facility] [address] [place] [address] Albumin/Globulin (S) [Mass conc ratio] 1.0 Low 1.1-2.2 [facility] Comment on above: Performed By: #### 2 284005, 1877763, 38857745, 0214650, 31109618, 25000358, 611211962 ####[facility] [address] [place] [address] ALP [Catalytic activity/Vol] 70 Int._Unit/L Normal 21-98 [facility] Comment on above: Performed By: #### 2 150739, 8186273, 28597464, 6943990, 18877478, 26130641, 612980151 ####[facility] [address] [place] [address] ALT No additional P-5'-P [Catalytic activity/Vol] 79 Int._Unit/L High 6-46 [facility] Comment on above: Performed By: #### 2 330086, 0202567, 84417122, 3299868, 56745823, 15627223, 207579759 ####[facility] [address] [place] [address] Anion gap [Moles/Vol] 13 mmol/L Normal 6-16 [facility] Comment on above: Performed By: #### 2 110956, 3973738, 65697888, 9133501, 25710043, 57239389, 072884061 ####[facility] [address] [place] [address] AST [Catalytic activity/Vol] 25 Int._Unit/L Normal 5-43 [facility] Comment on above: Performed By: #### 2 514382, 1994358, 32528343, 2429010, 85403401, 45476300, 852227925 ####[facility] [address] [place] [address] Bilirubin [Mass/Vol] 0.8 mg/dL Normal 0.0-1.1 [facility] Comment on above: Performed By: #### 2 141759, 4224734, 96927420, 9677689, 98385862, 05326954, 994578020 ####[facility] [address] [place] [address] Calcium [Mass/Vol] 8.8 mg/dL Low 8.9-11.1 [facility] Comment on above: Performed By: #### 2 947920, 7097494, 87415516, 8786715, 46992337, 72682457, 655505910 ####[facility] [address] [place] [address] Chloride [Moles/Vol] 104 mmol/L Normal 101-111 [facility] Comment on above: Performed By: #### 2 621520, 7967117, 69089017, 6013393, 04912578, 02028071, 130005140 ####[facility] [address] [place] [address] CO2 [Moles/Vol] 28 mmol/L Normal 21-31 [facility] Comment on above: Performed By: #### 2 348849, 9940633, 79664666, 1896199, 85024684, 19858620, 372900719 ####[facility] [address] [place] [address] Creatinine [Mass/Vol] 2.2 mg/dL High 0.5-1.3 [facility] Comment on above: Performed By: #### 2 496857, 8020042, 23695700, 6098417, 21232320, 68741382, 824286750 ####[facility] [address] [place] [address] Globulin (S) [Mass/Vol] 3.3 g/dL Normal 1.4-4.0 [facility] Comment on above: Performed By: #### 2 130739, 8781840, 11733795, 0806411, 89003378, 40387224, 557800012 ####[facility] [address] [place] [address] Glucose [Mass/Vol] 192 mg/dL Normal 55-199 [facility] Comment on above: Result Comment: If t his glucose result represents a fasting glucose, interpretation should refer to the following reference range: 55-99 mg/dL Performed By: #### 2 402445, 2917248, 30382490, 2781911, 65441035, 45579734, 544898192 ####[facility] [address] [place] [address] Potassium [Moles/Vol] 4.3 mmol/L Normal 3.5-5.3 [facility] Comment on above: Performed By: #### 2 068231, 0346684, 68910154, 5289370, 55921181, 66240304, 494552468 ####[facility] [address] [place] [address] Protein [Mass/Vol] 6.5 g/dL Normal 6.0-7.8 [facility] Comment on above: Performed By: #### 2 477411, 2271288, 04161115, 8327644, 61295787, 81322919, 991418594 ####[facility] [address] [place] [address] Sodium [Moles/Vol] 141 mmol/L Normal 135-145 [facility] Comment on above: Performed By: #### 2 737797, 8615104, 48143250, 4752112, 48402992, 52241709, 295469956 ####[facility] [address] [place] [address] Urea nitrogen [Mass/Vol] 41 mg/dL High 5-21 [facility] Comment on above: Performed By: #### 2 656205, 6455222, 99217104, 0072539, 70333887, 09654670, 003243344 ####[facility] [address] [place] [address] Urea nitrogen/Creatinine [Mass ratio] 19 No Units Normal 10-20 [facility] Comment on above: Performed By: #### 2 444847, 2045967, 54344541, 5525025, 23581450, 08124362, 080383127 ####[facility] [address] [place] [address] Family Medicine Office/Clini c Noteon 01-06-2023 Family [...] of O2 2/2 pulm HTN, CHF. - [facility] is cardiology - No Pulm Doc - [...] Comprehensive Metabolic Panel HgbA1c Lab Specimen Collect 43831 Microalbumin Level Urine U Protein/Creat Ratio 2. AP (angina pectoris) (I20.9: Angina pectoris, unspecified) - No chest pain. Ordered: CBC w/ Auto Diff Comprehensive Metabolic Panel HgbA1c Lab Specimen Collect 71095 Microalbumin Level Urine U Protein/Creat Ratio 3. Diabetes (E11.9: Type 2 diabetes mellitus without complications) - Will check A1c. - Will relax requirements as the patient is on hospice. Ordered: CBC w/ Auto Diff Comprehensive Metabolic Panel HgbA1c Lab Specimen Collect 55826 Microalbumin Level Urine U Protein/Creat Ratio 4. 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 Ordered: CBC w/ Auto Diff Comprehensive Metabolic Panel HgbA1c Lab Specimen Collect 11207 Microalbumin Level Urine U Protein/Creat Ratio 5. Hyperlipidemia (E78.5: Hyperlipidemia, unspecified) - Will have the patient stop taking his cholesterol meds. Ordered: CBC w/ Auto Diff Comprehensive Metabolic Panel HgbA1c Lab Specimen Collect 06229 Microalbumin Level Urine U Protein/Creat Ratio 6. [...] or previo (more content not included)... Normal [facility] Comment on above: Result Comment: Elec tronically Signed By: Mick SEN, Jacquelin Davies\.br\Date and Time Signed: 01/06/23 12:30 EDT [id number] 01-06-2023 HbA1c (Bld) [Mass fraction] 8.1 % High <=5.9 [facility] Comment on above: Performed By: #### 2 735914, 4496882, 53875156, 1079489, 53714553, 64556392, 282804212 ####[facility] [address] [place] [address] Manual Diffon 01-06-2023 Anisocytosis Ql (Bld) Present Normal [facility] Comment on above: Order Comment: Order Added by Discern Expert. Performed By: #### 2 377266, 7183612, 14695969, 4752393, 90828964, 18285713, 677253810 ####[facility] [address] [place] [address] Band form neutrophils/100 WBC (Bld) 5 % Normal 0-10 [facility] Comment on above: Order Comment: Order Added by Discern Expert. Performed By: #### 2 529977, 2583789, 33454585, 9409710, 26263084, 31125923, 791173593 ####[facility] [address] [place] [address] Basophils/100 WBC (Bld) 1 % Normal 0-2 [facility] Comment on above: Order Comment: Order Added by Ronaldo Expert. Performed By: #### 2 455741, 6303441, 67343514, 5963082, 84823412, 90336410, 887691994 ####[facility] [address] [place] [address] Eosinophils/100 WBC (Bld) 0 % Normal 0-8 [facility] Comment on above: Order Comment: Order Added by Ronaldo Expert. Performed By: #### 2 291663, 2074170, 76153365, 8319100, 50219221, 00226720, 326803168 ####[facility] [address] [place] [address] Hypochromia Auto Ql (Bld) Present Normal [facility] Comment on above: Order Comment: Order Added by Ronaldo Expert. Performed By: #### 2 358085, 1724409, 56776019, 7862061, 70118146, 66481316, 729504079 ####[facility] [address] [place] [address] Lymphocytes/100 WBC (Bld) 30 % Normal 14-50 [facility] Comment on above: Order Comment: Order Added by Discern Expert. Performed By: #### 2 327745, 1066598, 63302136, 5781950, 61338007, 75263194, 542844027 ####[facility] [address] [place] [address] Macrocytes Ql (Bld) Present Normal [facility] Comment on above: Order Comment: Order Added by Discern Expert. Performed By: #### 2 024908, 1340626, 27657199, 7253104, 74656296, 15514237, 402025664 ####[facility] [address] [place] [address] Monocytes/100 WBC (Bld) 7 % Normal 4-14 [facility] Comment on above: Order Comment: Order Added by Discern Expert. Performed By: #### 2 766761, 7847268, 45030082, 4308657, 30787531, 41013607, 854227255 ####[facility] [address] [place] [address] Morphology Edmundo (Bld) [Interp] See Morphology Normal [facility] Comment on above: Order Comment: Order Added by Discern Expert. Performed By: #### 2 829847, 9807248, 32371365, 6477122, 68097546, 08839999, 177420890 ####[facility] [address] [place] [address] Myelocytes/100 WBC (Bld) 5 % High <=0 [facility] Comment on above: Order Comment: Order Added by Discern Expert. Performed By: #### 2 966957, 8066826, 35011577, 1111560, 66397991, 91839767, 654908704 ####[facility] [address] [place] [address] Ovalocytes LM Ql (Bld) Present Normal [facility] Comment on above: Order Comment: Order Added by Discern Expert. Performed By: #### 2 650757, 0171163, 71891735, 9710519, 26830750, 71423297, 602338724 ####[facility] [address] [place] [address] Platelets Large LM Ql (Bld) Present Normal [facility] Comment on above: Order Comment: Order Added by Discern Expert. Performed By: #### 2 212276, 2697370, 97415414, 0370466, 60248502, 61632573, 213432920 ####[facility] [address] [place] [address] Segmented neutrophils/100 WBC (Bld) 50 % Normal 36-75 [facility] Comment on above: Order Comment: Order Added by Ronaldo Expert. Performed By: #### 2 282090, 7942680, 52127220, 0162180, 61055251, 91095672, 370333708 ####[facility] [address] [place] [address] Variant lymphocytes LM Ql (Bld) 2 % High <=0 [facility] Comment on above: Order Comment: Order Added by Discern Expert. Performed By: #### 2 695396, 0633935, 02041228, 1481030, 69062894, 57438116, 606128990 ####[facility] [address] [place] [address] Patient Educationon 01-07-20 23 Patient Education Nutrition [...] numbers. This can be done either in [place] or metric measurements. Note that charts and online BMI calculators are available to help you find your BMI quickly and easily without having to do these calculations yourself. To calculate your BMI in [place] ([place] measurements: 1. Measure your weight in [...] for Disease Control and Prevention: www.cdc.gov ? Swedish Heart Association: www.heart.org ? National Heart, Lung, and Blood [place]: www.nhlbi.nih.gov Summary ? Body mass index (BMI) is a number that is calculated from a person's weight and height. ? BMI may help estimate how much of a person's weight is composed of fat. BMI can help identify those who may be at higher risk for certain medical problems. ? BMI can be measured using [place] measurements or metric measurements. ? BMI charts are used to identify whether you are underweight, normal weight, overweight, or obese. This information is not intended to replace advice given to you by your health care provider. Make sure you discuss any questions you have with your health care provider. Document Revised: 04/05/2020 Document Reviewed: 02/11/2020 [employer] Patient Education ? 2022 [employer]. Normal [facility] eGFRon 01-06-2023 GFR/1.73 sq M.predicted among non-blacks MDRD (S/P/Bld) [Vol rate/Area] 29 mL/min/1.73 m2 Low >=59 [facility] Comment on above: Order Comment: Order added by Discern Expert. 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 Kidney failure is indicated at less than 15 mL/min/1.73m2. Performed By: #### 2 335389, 1390639, 97030528, 3961099, 01375751, 91054847, 013072606 ####[facility] [address] [place] [address] Lab Reportson 12-26-2022 Lab Reports [id number] .[id number]:127 Normal [facility] Lab Reportson 12-11-2022 Lab Reports [id number] .[id number]:127 Normal [facility] CBC AUTO DIFFon 12-10-2022 BASO # 0.0 103/ul Normal 0.0-0.1 [facility] Comment on above: Performed By: #### H H #### [facility] [address] [place] [address] Dr. Benito To Basophils/100 WBC (Bld) 0.5 % Normal 0.2-2.0 [facility] Comment on above: Performed By: #### H H #### [facility] [address] [place] [address] Dr. Benito To EO # 0.0 103/ul Normal 0.0-0.7 [facility] Comment on above: Performed By: #### H H #### [facility] [address] [place] [address] Dr. Benito To Eosinophils/100 WBC (Bld) 0.9 % Normal 0.9-7.0 [facility] Comment on above: Performed By: #### H H #### [facility] [address] [place] [address] Dr. Benito To Erythrocyte distribution width (RBC) [Ratio] 26.4 % Critically high 11.0-15.0 [facility] Comment on above: Performed By: #### H H #### [facility] [address] [place] [address] Dr. Benito To Hematocrit (Bld) [Volume fraction] 25.0 % Critically low 42.0-54.0 [facility] Comment on above: Performed By: #### H H #### [facility] [address] [place] [address] Dr. Benito To Hemoglobin (Bld) [Mass/Vol] 8.1 g/dL Critically low 14.0-18.0 [facility] Comment on above: Performed By: #### H H #### [facility] [address] [place] [address] Dr. Benito To IG # 0.11 10e3/ul Critically high 0.00-0.03 [facility] Comment on above: Performed By: #### H H #### [facility] [address] [place] [address] Dr. Benito To IG % 5.0 % Critically high 0.0-0.5 [facility] Comment on above: Performed By: #### H H #### [facility] [address] [place] [address] Dr. Benito oT LYMPH # 0.7 103/ul Critically low 1.2-3.8 [facility] Comment on above: Performed By: #### H H #### [facility] [address] [place] [address] Dr. Benito To Lymphocytes/100 WBC (Bld) 29.9 % Normal 20.5-60.0 [facility] Comment on above: Performed By: #### H H #### [facility] [address] [place] [address] Dr. Benito To MANUAL DIFF REQ NO Normal [facility] Comment on above: Performed By: #### H H #### [facility] [address] [place] [address] Dr. Benito To MCH (RBC) [Entitic mass] 33.2 pg Normal 25.9-34.0 [facility] Comment on above: Performed By: #### H H #### [facility] [address] [place] [address] Dr. Benito To MCHC (RBC) [Mass/Vol] 32.4 g/dL Normal 29.9-35.2 [facility] Comment on above: Performed By: #### H H #### [facility] [address] [place] [address] Dr. Benito To MCV (RBC) [Entitic vol] 102.5 fL Critically high 80.0-94.0 [facility] Comment on above: Performed By: #### H H #### [facility] [address] [place] [address] Dr. Benito To MONO # 0.3 103/ul Normal 0.3-0.8 [facility] Comment on above: Performed By: #### H H #### [facility] [address] [place] [address] Dr. Benito To Monocytes/100 WBC (Bld) 14.5 % Critically high 1.7-12.0 [facility] Comment on above: Performed By: #### H H #### [facility] [address] [place] [address] Dr. Benito To NEUT # 1.1 103/ul Critically low 1.4-6.5 [facility] Comment on above: Performed By: #### H H #### [facility] [address] [place] [address] Dr. Benito To Neutrophils/100 WBC (Bld) 49.2 % Normal 43.0-75.0 [facility] Comment on above: Performed By: #### H H #### [facility] [address] [place] [address] Dr. Benito To Platelet mean volume (Bld) [Entitic vol] 14.4 fL Critically high 9.5-13.5 [facility] Comment on above: Performed By: #### H H #### [facility] [address] [place] [address] Dr. Benito To PLT 121 103/ul Critically low 150-450 [facility] Comment on above: Performed By: #### H H #### [facility] [address] [place] [address] Dr. Benito To RBC 2.44 106/ul Critically low 4.70-6.10 [facility] Comment on above: Performed By: #### H H #### [facility] [address] [place] [address] Dr. Benito To WBC 2.2 103/ul Critically low 4.0-11.0 [facility] Comment on above: Performed By: #### H H #### [facility] [address] [place] [address] Dr. Benito To Lab Reportson 12-04-2022 Lab Reports [id number] .[id number]:127 Normal [facility] PRBC LEUKOREDUCEDon 12-05-19 23 ABO and Rh group Nom (Bld) Cross Match Result Compatible Unit Blood Type A Pos Unit Number [id number] Status Information Issued Product ID Red Blood Cells Product Code [id number] Issue Date/Time [id number] Normal [facility] Comment on above: Performed By: #### P RBC, TNS #### [facility] [address] [address] [address] Benito To Ambulatory Visit Summaryon 0 [...] 40 mg Cap-DR) potassium chloride (Potassium Chloride (Rnc-Wcdy-Xcz M20) 20 mEq oral tablet, extended release) [...] Follow-Up Appointments Friday 10:40 AM EDT With: Jacquelin Barton MD Where: [facility] Normal [facility] CBC AUTO DIFFon 12-03-2022 BASO # 0.0 103/ul Normal 0.0-0.1 [facility] Comment on above: Performed By: #### T NS, PRBC #### [facility] [address] [place] [address] Dr. Benito To Basophils/100 WBC (Bld) 0.4 % Normal 0.2-2.0 [facility] Comment on above: Performed By: #### T NS, PRBC #### [facility] [address] [place] [address] Dr. Benito To EO # 0.0 103/ul Normal 0.0-0.7 [facility] Comment on above: Performed By: #### T NS, PRBC #### [facility] [address] [place] [address] Dr. Benito To Eosinophils/100 WBC (Bld) 0.4 % Critically low 0.9-7.0 [facility] Comment on above: Performed By: #### T NS, PRBC #### [facility] [address] [place] [address] Dr. Benito To Erythrocyte distribution width (RBC) [Ratio] 26.9 % Critically high 11.0-15.0 [facility] Comment on above: Performed By: #### T NS, PRBC #### [facility] [address] [place] [address] Dr. Benito To Hematocrit (Bld) [Volume fraction] 22.5 % Critically low 42.0-54.0 [facility] Comment on above: Performed By: #### T NS, PRBC #### [facility] [address] [place] [address] Dr. Benito To Hemoglobin (Bld) [Mass/Vol] 7.0 g/dL Critically low 14.0-18.0 [facility] Comment on above: Performed By: #### T NS, PRBC #### [facility] [address] [place] [address] Dr. Benito To IG # 0.16 10e3/ul Critically high 0.00-0.03 [facility] Comment on above: Performed By: #### T NS, PRBC #### [facility] [address] [place] [address] Dr. Benito To IG % 7.0 % Critically high 0.0-0.5 [facility] Comment on above: Performed By: #### T NS, PRBC #### [facility] [address] [place] [address] Dr. Benito To LYMPH # 0.7 103/ul Critically low 1.2-3.8 [facility] Comment on above: Performed By: #### T NS, PRBC #### [facility] [address] [place] [address] Dr. Benito To Lymphocytes/100 WBC (Bld) 28.6 % Normal 20.5-60.0 [facility] Comment on above: Performed By: #### T NS, PRBC #### [facility] [address] [place] [address] Dr. Benito To MANUAL DIFF REQ NO Normal [facility] Comment on above: Performed By: #### T NS, PRBC #### [facility] [address] [place] [address] Dr. Benito To MCH (RBC) [Entitic mass] 32.6 pg Normal 25.9-34.0 [facility] Comment on above: Performed By: #### T NS, PRBC #### [facility] [address] [place] [address] Dr. Benito To MCHC (RBC) [Mass/Vol] 31.1 g/dL Normal 29.9-35.2 [facility] Comment on above: Performed By: #### T NS, PRBC #### [facility] [address] [place] [address] Dr. Benito To MCV (RBC) [Entitic vol] 104.7 fL Critically high 80.0-94.0 [facility] Comment on above: Performed By: #### T NS, PRBC #### [facility] [address] [place] [address] Dr. Benito To MONO # 0.4 103/ul Normal 0.3-0.8 [facility] Comment on above: Performed By: #### T NS, PRBC #### [facility] [address] [place] [address] Dr. Benito To Monocytes/100 WBC (Bld) 19.4 % Critically high 1.7-12.0 [facility] Comment on above: Performed By: #### T NS, PRBC #### [facility] [address] [place] [address] Dr. Benito To NEUT # 1.0 103/ul Critically low 1.4-6.5 [facility] Comment on above: Performed By: #### T NS, PRBC #### [facility] [address] [place] [address] Dr. Benito To Neutrophils/100 WBC (Bld) 44.2 % Normal 43.0-75.0 [facility] Comment on above: Performed By: #### T NS, PRBC #### [facility] [address] [place] [address] Dr. Benito To Platelet mean volume (Bld) [Entitic vol] 14.6 fL Critically high 9.5-13.5 [facility] Comment on above: Performed By: #### T NS, PRBC #### [facility] [address] [place] [address] Dr. Benito To PLT 93 103/ul Critically low 150-450 [facility] Comment on above: Performed By: #### T NS, PRBC #### [facility] [address] [place] [address] Dr. Benito To RBC 2.15 106/ul Critically low 4.70-6.10 [facility] Comment on above: Performed By: #### T NS, PRBC #### [facility] [address] [place] [address] Dr. Benito To WBC 2.3 103/ul Critically low 4.0-11.0 [facility] Comment on above: Performed By: #### T NS, PRBC #### [facility] [address] [place], [place] [address] Dr. Benito To Family Medicine Office/Clini c [...] mg= 1 cap(s), Oral, Daily Potassium Chloride (Xsq-Cglh-Ffg M20) 20 mEq oral tablet, extended release, [...] SARS-CoV-2 (COVID-19) (more content not included)... Normal [facility] Comment on above: Result Comment: Elec tronically Signed By: RYANNE SEN, FLASH E\.br\Date and Time Signed: 12/03/22 13:58 EDT PROF CHEM 8 (BAS METB)on Anion gap [Moles/Vol] 8.3 mmol/L Normal [facility] Comment on above: Performed By: #### T ZEHRA, PRBC #### [facility] [address] [place] [address] Dr. Benito To Calcium [Mass/Vol] 9.2 mg/dL Normal 8.5-10.1 [facility] Comment on above: Performed By: #### T ZEHRA, PRBC #### [facility] [address] [address] [address] Benito To Chloride [Moles/Vol] 102 mmol/L Normal 98-107 [facility] Comment on above: Performed By: #### T NS, PRBC #### [facility] [address] [place] [address] Dr. Benito To CO2 [Moles/Vol] 31.5 mmol/L Normal 21.0-32.0 [facility] Comment on above: Performed By: #### T NS, PRBC #### [facility] [address] [place] [address] Dr. Benito To Creatinine [Mass/Vol] 1.96 mg/dL Critically high 0.70-1.30 [facility] Comment on above: Performed By: #### T NS, PRBC #### [facility] [address] [place] [address] Dr. Benito To EGFR-AF [place] 40 mL/min/1.73m2 Critically low >=60 [facility] Comment on above: Performed By: #### T NS, PRBC #### [facility] [address] [place] [address] Dr. Benito To EGFR-NON AF [place] 33 mL/min/1.73m2 Critically low >=60 [facility] Comment on above: Performed By: #### T NS, PRBC #### [facility] [address] [place] [address] Dr. Benito To Glucose [Mass/Vol] 235 mg/dL Critically high 74-106 [facility] Comment on above: Performed By: #### T NS, PRBC #### [facility] [address] [place] [address] Dr. Benito To Potassium [Moles/Vol] 3.8 mmol/L Normal 3.5-5.1 [facility] Comment on above: Performed By: #### T NS, PRBC #### [facility] [address] [place] [address] Dr. Benito oT Sodium [Moles/Vol] 138 mmol/L Normal 136-145 [facility] Comment on above: Performed By: #### T NS, PRBC #### [facility] [address] [place] [address] Dr. Benito To Urea nitrogen [Mass/Vol] 45.0 mg/dL Critically high 7.0-18.0 [facility] Comment on above: Performed By: #### T NS, PRBC #### [facility] [address] [address] [address] Benito To Urea nitrogen/Creatinine [Mass ratio] 23.0 mg/mg Normal [facility] Comment on above: Performed By: #### T NS, PRBC #### [facility] [address] [address] [address] Benito To TYPE AND SCREENon 12-03-2022 TYPE AND SCREEN Negative Normal [facility] Comment on above: Performed By: #### P RBC, TNS #### [facility] [address] [address] [address] Benito To Ambulatory Visit Summaryon 0 [...] 40 mg Cap-DR) potassium chloride (Potassium Chloride (Ptj-Floi-Ckp M20) 20 mEq oral tablet, extended release) [...] PM EDT With: FLASH PEARL MD Where: [facility] Ambulatory Visit Summary SANDIP BROUSSARD :1940 Visit [...] 40 mg Cap-DR) potassium chloride (Potassium Chloride (Akr-Tppw-Cvy M20) 20 mEq oral tablet, extended release) [...] PM EDT With: FLASH PEARL MD Where: [facility] Family Medicine Office/Clini c Noteon 11-20-2022 Family [...] mg= 1 cap(s), Oral, Daily Potassium Chloride (Vhe-Uzie-Zvp M20) 20 mEq oral tablet, extended release, [...] SEN, FLASH Holden\boogie\Date and Time Signed: 11/20/22 14:24 EDT Family [...] mg= 1 cap(s), Oral, Daily Potassium Chloride (Sky-Acks-Ywg M20) 20 mEq oral tablet, extended release, [...] smoker, q (more content not included)... Normal [facility] Comment on above: Result Comment: Elec tronically Signed By: RYANNE SEN, FLASH Holden\.br\Date and Time Signed: 11/20/22 14:14 EDT RAD - MISCon 11-20-2022 RAD - MISC [id number]:127 Normal [facility] BNPon 11-17-2022 Natriuretic peptide B (Bld) [Mass/Vol] 6221.0 pg/mL Critically high <=1,800.0 [facility] Comment on above: Performed By: #### T ZEHRA, PRBC #### [facility] [address] [place] [address] Dr. Benito To CBC AUTO DIFFon 11-17-2022 BASO # 0.1 103/ul Normal 0.0-0.1 [facility] Comment on above: Performed By: #### T ZEHRA, PRBC #### [facility] [address] [place] [address] Dr. Benito To Basophils/100 WBC (Bld) 1.1 % Normal 0.2-2.0 [facility] Comment on above: Performed By: #### T ZEHRA, PRBC #### [facility] [address] [place] [address] Dr. Benito To EO # 0.0 103/ul Normal 0.0-0.7 [facility] Comment on above: Performed By: #### T ZEHRA, PRBC #### [facility] [address] [place] [address] Dr. Benito To Eosinophils/100 WBC (Bld) 0.0 % Critically low 0.9-7.0 [facility] Comment on above: Performed By: #### T NS, PRBC #### [facility] [address] [place] [address] Dr. Benito To Erythrocyte distribution width (RBC) [Ratio] 23.8 % Critically high 11.0-15.0 [facility] Comment on above: Performed By: #### T NS, PRBC #### [facility] [address] [place] [address] Dr. Benito To Hematocrit (Bld) [Volume fraction] 22.0 % Critically low 42.0-54.0 [facility] Comment on above: Performed By: #### T NS, PRBC #### [facility] [address] [place] [address] Dr. Benito To Hemoglobin (Bld) [Mass/Vol] 7.0 g/dL Critically low 14.0-18.0 [facility] Comment on above: Performed By: #### T NS, PRBC #### [facility] [address] [place] [address] Dr. Benito To IG # 1.95 10e3/ul Critically high 0.00-0.03 [facility] Comment on above: Performed By: #### T NS, PRBC #### [facility] [address] [place] [address] Dr. Benito To IG % 24.9 % Critically high 0.0-0.5 [facility] Comment on above: Performed By: #### T NS, PRBC #### [facility] [address] [place] [address] Dr. Benito To LYMPH # 1.1 103/ul Critically low 1.2-3.8 [facility] Comment on above: Performed By: #### T NS, PRBC #### [facility] [address] [place] [address] Dr. Benito To Lymphocytes/100 WBC (Bld) 13.8 % Critically low 20.5-60.0 [facility] Comment on above: Performed By: #### T NS, PRBC #### [facility] [address] [place] [address] Dr. Benito To MANUAL DIFF REQ NO Normal [facility] Comment on above: Performed By: #### T NS, PRBC #### [facility] [address] [place] [address] Dr. Benito To MCH (RBC) [Entitic mass] 32.0 pg Normal 25.9-34.0 [facility] Comment on above: Performed By: #### T NS, PRBC #### [facility] [address] [place] [address] Dr. Benito To MCHC (RBC) [Mass/Vol] 31.8 g/dL Normal 29.9-35.2 [facility] Comment on above: Performed By: #### T NS, PRBC #### [facility] [address] [place] [address] Dr. Benito To MCV (RBC) [Entitic vol] 100.5 fL Critically high 80.0-94.0 [facility] Comment on above: Performed By: #### T NS, PRBC #### [facility] [address] [place] [address] Dr. Benito To MONO # 1.1 103/ul Critically high 0.3-0.8 [facility] Comment on above: Performed By: #### T NS, PRBC #### [facility] [address] [place] [address] Dr. Benito To Monocytes/100 WBC (Bld) 14.4 % Critically high 1.7-12.0 [facility] Comment on above: Performed By: #### T NS, PRBC #### [facility] [address] [place] [address] Dr. Benito To NEUT # 3.6 103/ul Normal 1.4-6.5 [facility] Comment on above: Performed By: #### T NS, PRBC #### [facility] [address] [place] [address] Dr. Benito To Neutrophils/100 WBC (Bld) 45.8 % Normal 43.0-75.0 [facility] Comment on above: Performed By: #### T NS, PRBC #### [facility] [address] [place] [address] Dr. Benito To Platelet mean volume (Bld) [Entitic vol] 0.0 fL Critically low 9.5-13.5 [facility] Comment on above: Performed By: #### T NS, PRBC #### [facility] [address] [place] [address] Dr. Benito To PLT 92 103/ul Critically low 150-450 [facility] Comment on above: Performed By: #### T NS, PRBC #### [facility] [address] [place] [address] Dr. Benito To RBC 2.19 106/ul Critically low 4.70-6.10 [facility] Comment on above: Performed By: #### T NS, PRBC #### [facility] [address] [place] [address] Dr. Benito To WBC 7.8 103/ul Normal 4.0-11.0 [facility] Comment on above: Performed By: #### T NS, PRBC #### [facility] [address] [place] [address] Dr. Benito To PROF 14(COMP METB)on 023 Albumin [Mass/Vol] 2.5 g/dL Critically low 3.4-5.0 [facility] Comment on above: Performed By: #### H GBHCT #### [facility] [address] [place] [address] Dr. Benito To Albumin/Globulin [Mass ratio] 0.6 {ratio} Normal [facility] Comment on above: Performed By: #### H GBHCT #### [facility] [address] [place] [address] Dr. Benito To ALP [Catalytic activity/Vol] 148 U/L Critically high 46-116 [facility] Comment on above: Performed By: #### H GBHCT #### [facility] [address] [place] [address] Dr. Benito To ALT [Catalytic activity/Vol] 61 U/L Normal 16-63 [facility] Comment on above: Performed By: #### H GBHCT #### [facility] [address] [address] [address] Benito To Anion gap [Moles/Vol] 8.5 mmol/L Normal [facility] Comment on above: Performed By: #### H GBHCT #### [facility] [address] [address] [address] Benito To AST [Catalytic activity/Vol] 43 U/L Critically high 15-37 [facility] Comment on above: Performed By: #### H GBHCT #### [facility] [address] [place] [address] Dr. Benito To Bilirubin [Mass/Vol] 0.8 mg/dL Normal 0.2-1.0 [facility] Comment on above: Performed By: #### H GBHCT #### [facility] [address] [address] [address] Benito To Calcium [Mass/Vol] 8.4 mg/dL Critically low 8.5-10.1 [facility] Comment on above: Performed By: #### H GBHCT #### [facility] [address] [place] [address] Dr. Benito To Chloride [Moles/Vol] 101 mmol/L Normal 98-107 [facility] Comment on above: Performed By: #### H GBHCT #### [facility] [address] [address] [address] Benito To CO2 [Moles/Vol] 37.8 mmol/L Critically high 21.0-32.0 [facility] Comment on above: Performed By: #### H GBHCT #### [facility] [address] [address] [address] Benito To Creatinine [Mass/Vol] 1.77 mg/dL Critically high 0.70-1.30 [facility] Comment on above: Performed By: #### H GBHCT #### [facility] [address] [address] [address] Benito To EGFR-AF [place] 45 mL/min/1.73m2 Critically low >=60 [facility] Comment on above: Performed By: #### H GBHCT #### [facility] [address] [address] [address] Benito To EGFR-NON AF [place] 37 mL/min/1.73m2 Critically low >=60 [facility] Comment on above: Performed By: #### H GBHCT #### [facility] [address] [address] [address] Benito To Globulin (S) [Mass/Vol] 4.3 g/dL Normal [facility] Comment on above: Performed By: #### H GBHCT #### [facility] [address] [place] [address] Dr. Benito To Glucose [Mass/Vol] 107 mg/dL Critically high 74-106 [facility] Comment on above: Performed By: #### H GBHCT #### [facility] [address] [place] [address] Dr. Benito To Potassium [Moles/Vol] 3.3 mmol/L Critically low 3.5-5.1 [facility] Comment on above: Performed By: #### H GBHCT #### [facility] [address] [place] [address] Dr. Benito To Protein [Mass/Vol] 6.8 g/dL Normal 6.4-8.2 [facility] Comment on above: Performed By: #### H GBHCT #### [facility] [address] [place] [address] Dr. Benito To Sodium [Moles/Vol] 144 mmol/L Normal 136-145 [facility] Comment on above: Performed By: #### H GBHCT #### [facility] [address] [address] [address] Benito To Urea nitrogen [Mass/Vol] 40.0 mg/dL Critically high 7.0-18.0 [facility] Comment on above: Performed By: #### H GBHCT #### [facility] [address] [place] [address] Dr. Benito To Urea nitrogen/Creatinine [Mass ratio] 22.6 mg/mg Normal [facility] Comment on above: Performed By: #### H GBHCT #### [facility] [address] [place] [address] Dr. Benito To BNPon 11-16-2022 Natriuretic peptide B (Bld) [Mass/Vol] 67148.0 pg/mL Critically high <=1,800.0 [facility] Comment on above: Performed By: #### T NS, PRBC #### [facility] [address] [place] [address] Dr. Benito To CBC AUTO DIFFon 11-16-2022 BASO # 0.1 103/ul Normal 0.0-0.1 [facility] Comment on above: Performed By: #### T NS, PRBC #### [facility] [address] [place] [address] Dr. Benito To Basophils/100 WBC (Bld) 0.6 % Normal 0.2-2.0 [facility] Comment on above: Performed By: #### T NS, PRBC #### [facility] [address] [place] [address] Dr. Benito To EO # 0.6 103/ul Normal 0.0-0.7 [facility] Comment on above: Performed By: #### T NS, PRBC #### [facility] [address] [place] [address] Dr. Benito To Eosinophils/100 WBC (Bld) 5.1 % Normal 0.9-7.0 [facility] Comment on above: Performed By: #### T NS, PRBC #### [facility] [address] [place] [address] Dr. Benito To Erythrocyte distribution width (RBC) [Ratio] 23.6 % Critically high 11.0-15.0 [facility] Comment on above: Performed By: #### T NS, PRBC #### [facility] [address] [place] [address] Dr. Benito To Hematocrit (Bld) [Volume fraction] 22.3 % Critically low 42.0-54.0 [facility] Comment on above: Performed By: #### T NS, PRBC #### [facility] [address] [place] [address] Dr. Benito To Hemoglobin (Bld) [Mass/Vol] 7.2 g/dL Critically low 14.0-18.0 [facility] Comment on above: Performed By: #### T NS, PRBC #### [facility] [address] [place] [address] Dr. Benito To IG # 1.56 10e3/ul Critically high 0.00-0.03 [facility] Comment on above: Performed By: #### T NS, PRBC #### [facility] [address] [place] [address] Dr. Benito To IG % 14.4 % Critically high 0.0-0.5 [facility] Comment on above: Performed By: #### T NS, PRBC #### [facility] [address] [place] [address] Dr. Benito To LYMPH # 1.3 103/ul Normal 1.2-3.8 [facility] Comment on above: Performed By: #### T NS, PRBC #### [facility] [address] [place] [address] Dr. Benito To Lymphocytes/100 WBC (Bld) 12.1 % Critically low 20.5-60.0 [facility] Comment on above: Performed By: #### T NS, PRBC #### [facility] [address] [place] [address] Dr. Benito To MANUAL DIFF REQ NO Normal [facility] Comment on above: Performed By: #### T NS, PRBC #### [facility] [address] [place] [address] Dr. Benito To MCH (RBC) [Entitic mass] 32.4 pg Normal 25.9-34.0 [facility] Comment on above: Performed By: #### T NS, PRBC #### [facility] [address] [place] [address] Dr. Benito To MCHC (RBC) [Mass/Vol] 32.3 g/dL Normal 29.9-35.2 [facility] Comment on above: Performed By: #### T NS, PRBC #### [facility] [address] [place] [address] Dr. Beinto To MCV (RBC) [Entitic vol] 100.5 fL Critically high 80.0-94.0 [facility] Comment on above: Performed By: #### T NS, PRBC #### [facility] [address] [place] [address] Dr. Benito To MONO # 1.7 103/ul Critically high 0.3-0.8 [facility] Comment on above: Performed By: #### T NS, PRBC #### [facility] [address] [place] [address] Dr. Benito To Monocytes/100 WBC (Bld) 15.3 % Critically high 1.7-12.0 [facility] Comment on above: Performed By: #### T NS, PRBC #### [facility] [address] [place] [address] Dr. Benito To NEUT # 5.7 103/ul Normal 1.4-6.5 [facility] Comment on above: Performed By: #### T NS, PRBC #### [facility] [address] [place] [address] Dr. Benito To Neutrophils/100 WBC (Bld) 52.5 % Normal 43.0-75.0 [facility] Comment on above: Performed By: #### T NS, PRBC #### [facility] [address] [place] [address] Dr. Benito To Platelet mean volume (Bld) [Entitic vol] 0.0 fL Critically low 9.5-13.5 [facility] Comment on above: Performed By: #### T NS, PRBC #### [facility] [address] [place] [address] Dr. Benito To PLT 83 103/ul Critically low 150-450 [facility] Comment on above: Performed By: #### T NS, PRBC #### [facility] [address] [place] [address] Dr. Benito To RBC 2.22 106/ul Critically low 4.70-6.10 [facility] Comment on above: Performed By: #### T NS, PRBC #### [facility] [address] [place] [address] Dr. Benito To WBC 10.8 103/ul Normal 4.0-11.0 [facility] Comment on above: Performed By: #### T NS, PRBC #### [facility] [address] [place] [address] Dr. Benito To PROF 14(COMP METB)on 023 Albumin [Mass/Vol] 2.5 g/dL Critically low 3.4-5.0 [facility] Comment on above: Performed By: #### T NS, PRBC #### [facility] [address] [place] [address] Dr. Benito To Albumin/Globulin [Mass ratio] 0.6 {ratio} Normal [facility] Comment on above: Performed By: #### T NS, PRBC #### [facility] [address] [place] [address] Dr. Benito To ALP [Catalytic activity/Vol] 133 U/L Critically high 46-116 [facility] Comment on above: Performed By: #### T NS, PRBC #### [facility] [address] [place] [address] Dr. Benito To ALT [Catalytic activity/Vol] 56 U/L Normal 16-63 [facility] Comment on above: Performed By: #### T NS, PRBC #### [facility] [address] [place] [address] Dr. Benito To Anion gap [Moles/Vol] 11.8 mmol/L Normal [facility] Comment on above: Performed By: #### T NS, PRBC #### [facility] [address] [place] [address] Dr. Benito To AST [Catalytic activity/Vol] 35 U/L Normal 15-37 [facility] Comment on above: Performed By: #### T NS, PRBC #### [facility] [address] [place] [address] Dr. Benito To Bilirubin [Mass/Vol] 0.9 mg/dL Normal 0.2-1.0 [facility] Comment on above: Performed By: #### T NS, PRBC #### [facility] [address] [place] [address] Dr. Benito To Calcium [Mass/Vol] 8.4 mg/dL Critically low 8.5-10.1 [facility] Comment on above: Performed By: #### T NS, PRBC #### [facility] [address] [place] [address] Dr. Benito To Chloride [Moles/Vol] 101 mmol/L Normal 98-107 [facility] Comment on above: Performed By: #### T NS, PRBC #### [facility] [address] [place] [address] Dr. Benito To CO2 [Moles/Vol] 32.2 mmol/L Critically high 21.0-32.0 [facility] Comment on above: Performed By: #### T NS, PRBC #### [facility] [address] [place] [address] Dr. Benito To Creatinine [Mass/Vol] 1.89 mg/dL Critically high 0.70-1.30 [facility] Comment on above: Performed By: #### T NS, PRBC #### [facility] [address] [place] [address] Dr. Benito To EGFR-AF [place] 41 mL/min/1.73m2 Critically low >=60 [facility] Comment on above: Performed By: #### T NS, PRBC #### [facility] [address] [place] [address] Dr. Benito To EGFR-NON AF [place] 34 mL/min/1.73m2 Critically low >=60 [facility] Comment on above: Performed By: #### T NS, PRBC #### [facility] [address] [place] [address] Dr. Benito To Globulin (S) [Mass/Vol] 4.5 g/dL Normal [facility] Comment on above: Performed By: #### T NS, PRBC #### [facility] [address] [place] [address] Dr. Benito To Glucose [Mass/Vol] 105 mg/dL Normal 74-106 [facility] Comment on above: Performed By: #### T NS, PRBC #### [facility] [address] [place] [address] Dr. Benito To Potassium [Moles/Vol] 2.9 mmol/L Critically low 3.5-5.1 [facility] Comment on above: Performed By: #### T NS, PRBC #### [facility] [address] [place] [address] Dr. Benito To Protein [Mass/Vol] 7.0 g/dL Normal 6.4-8.2 [facility] Comment on above: Performed By: #### T NS, PRBC #### [facility] [address] [place] [address] Dr. Benito To Sodium [Moles/Vol] 140 mmol/L Normal 136-145 [facility] Comment on above: Performed By: #### T NS, PRBC #### [facility] [address] [place] [address] Dr. Benito To Urea nitrogen [Mass/Vol] 39.0 mg/dL Critically high 7.0-18.0 [facility] Comment on above: Performed By: #### T NS, PRBC #### [facility] [address] [place] [address] Dr. Benito To Urea nitrogen/Creatinine [Mass ratio] 20.6 mg/mg Normal [facility] Comment on above: Performed By: #### T NS, PRBC #### [facility] [address] [place] [address] Dr. Benito To XR CHEST 1 Von [...] Stable left basilar infiltrate Electronically authenticated by: OJSIE MIRAMONTES Date: 2022-11-16 13:55 Normal [facility] CBC W MANUAL DIFFon 11-16-19 23 ANISOCYTOSIS 3+ Normal [facility] Comment on above: Performed By: #### T NS, PRBC #### [facility] [address] [place] [address] Dr. Benito To ATYPICAL LYMPH # 0.71 103/ul Normal [facility] Comment on above: Performed By: #### T NS, PRBC #### [facility] [address] [place] [address] Dr. Benito To ATYPICAL LYMPH % 6 % Normal [facility] Comment on above: Performed By: #### T NS, PRBC #### [facility] [address] [place] [address] Dr. Benito To BAND # 1.3 103/ul Critically high 0.0-0.3 [facility] Comment on above: Performed By: #### T NS, PRBC #### [facility] [address] [place] [address] Dr. Benito To BAND % 11 % Critically high 0-5 [facility] Comment on above: Performed By: #### T NS, PRBC #### [facility] [address] [place] [address] Dr. Benito To BASOM # 0.00 103/ul Normal 0.00-0.10 [facility] Comment on above: Performed By: #### T NS, PRBC #### [facility] [address] [place] [address] Dr. Benito To BASOM % 0.0 % Critically low 0.2-2.0 [facility] Comment on above: Performed By: #### T NS, PRBC #### [facility] [address] [place] [address] Dr. Benito To BLAST # Normal [facility] Comment on above: Performed By: #### T NS, PRBC #### [facility] [address] [place] [address] Dr. Benito To BLAST % Normal [facility] Comment on above: Performed By: #### T NS, PRBC #### [facility] [address] [place] [address] Dr. Benito To CORRECTED WBC Normal 4.0-11.0 [facility] Comment on above: Performed By: #### T NS, PRBC #### [facility] [address] [place] [address] Dr. Benito To EOS # 0.00 103/ul Normal 0.00-0.70 [facility] Comment on above: Performed By: #### T NS, PRBC #### [facility] [address] [place] [address] Dr. Benito To EOS% 0.0 % Critically low 0.9-7.0 [facility] Comment on above: Performed By: #### T NS, PRBC #### [facility] [address] [place] [address] Dr. Benito To HCT 24.3 % Critically low 42.0-54.0 [facility] Comment on above: Performed By: #### T NS, PRBC #### [facility] [address] [place] [address] Dr. Benito To HGB 7.5 g/dl Critically low 14.0-18.0 [facility] Comment on above: Performed By: #### T NS, PRBC #### [facility] [address] [place] [address] Dr. Benito To LYMPHM # 1.55 103/ul Normal 1.20-3.80 [facility] Comment on above: Performed By: #### T NS, PRBC #### [facility] [address] [place] [address] Dr. Benito To LYMPHM% 13.0 % Critically low 20.5-60.0 [facility] Comment on above: Performed By: #### T NS, PRBC #### [facility] [address] [place] [address] Dr. Benito To MCH 30.9 pg Normal 25.9-34.0 [facility] Comment on above: Performed By: #### T NS, PRBC #### [facility] [address] [place] [address] Dr. Benito To MCHC 30.9 g/dl Normal 29.9-35.2 [facility] Comment on above: Performed By: #### T NS, PRBC #### [facility] [address] [place] [address] Dr. Benito To MCV 100.0 fL Critically high 80.0-94.0 [facility] Comment on above: Performed By: #### T NS, PRBC #### [facility] [address] [place] [address] Dr. Benito To METAMYELOCYTE # Normal [facility] Comment on above: Performed By: #### T NS, PRBC #### [facility] [address] [place] [address] Dr. Benito To METAMYELOCYTE % Normal [facility] Comment on above: Performed By: #### T NS, PRBC #### [facility] [address] [place] [address] Dr. Benito To MONOM# 0.59 103/ul Normal 0.30-0.80 [facility] Comment on above: Performed By: #### T NS, PRBC #### [facility] [address] [place] [address] Dr. Benito To MONOM% 5.0 % Normal 1.7-12.0 [facility] Comment on above: Performed By: #### T NS, PRBC #### [facility] [address] [place] [address] Dr. Benito To MPV 0.0 fL Critically low 9.5-13.5 [facility] Comment on above: Performed By: #### T NS, PRBC #### [facility] [address] [place], [place] [id number] Dr. Benito To MYELOCYTE # 0.2 103/ul Normal [facility] Comment on above: Performed By: #### T NS, PRBC #### [facility] [address] [place] [address] Dr. Benito To MYELOCYTE % 2 % Normal [facility] Comment on above: Performed By: #### T NS, PRBC #### [facility] [address] [place] [address] Dr. Benito To NRBC Normal [facility] Comment on above: Performed By: #### T NS, PRBC #### [facility] [address] [place] [address] Dr. Benito To PLT 83 103/ul Critically low 150-450 [facility] Comment on above: Performed By: #### T NS, PRBC #### [facility] [address] [place] [address] Dr. Benito To RBC 2.43 106/ul Critically low 4.70-6.10 [facility] Comment on above: Performed By: #### T NS, PRBC #### [facility] [address] [place] [address] Dr. Benito To RDW 23.9 % Critically high 11.0-15.0 [facility] Comment on above: Performed By: #### T NS, PRBC #### [facility] [address] [place] [address] Dr. Benito To SEG # 7.50 103/ul Critically high 1.40-6.50 [facility] Comment on above: Performed By: #### T NS, PRBC #### [facility] [address] [place] [address] Dr. Benito To SEG % 63.0 % Normal 43.0-75.0 [facility] Comment on above: Performed By: #### T NS, PRBC #### [facility] [address] [place] [address] Dr. Benito To WBC 11.9 103/ul Critically high 4.0-11.0 [facility] Comment on above: Performed By: #### T NS, PRBC #### [facility] [address] [address] [address] Benito To PROF 14(COMP METB)on 023 Albumin [Mass/Vol] 2.6 g/dL Critically low 3.4-5.0 [facility] Comment on above: Performed By: #### T NS, PRBC #### [facility] [address] [address] [address] Benito To Albumin/Globulin [Mass ratio] 0.6 {ratio} Normal [facility] Comment on above: Performed By: #### T NS, PRBC #### [facility] [address] [place] [address] Dr. Benito To ALP [Catalytic activity/Vol] 139 U/L Critically high 46-116 [facility] Comment on above: Performed By: #### T NS, PRBC #### [facility] [address] [place] [address] Dr. Benito To ALT [Catalytic activity/Vol] 52 U/L Normal 16-63 [facility] Comment on above: Performed By: #### T NS, PRBC #### [facility] [address] [place] [address] Dr. Benito To Anion gap [Moles/Vol] 12.4 mmol/L Normal [facility] Comment on above: Performed By: #### T NS, PRBC #### [facility] [address] [address] [address] Benito To AST [Catalytic activity/Vol] 31 U/L Normal 15-37 [facility] Comment on above: Performed By: #### T NS, PRBC #### [facility] [address] [place] [address] Dr. Benito To Bilirubin [Mass/Vol] 1.3 mg/dL Critically high 0.2-1.0 [facility] Comment on above: Performed By: #### T NS, PRBC #### [facility] [address] [address] [address] Benito To Calcium [Mass/Vol] 8.2 mg/dL Critically low 8.5-10.1 [facility] Comment on above: Performed By: #### T NS, PRBC #### [facility] [address] [place] [address] Dr. Benito To Chloride [Moles/Vol] 100 mmol/L Normal 98-107 [facility] Comment on above: Performed By: #### T NS, PRBC #### [facility] [address] [place] [address] Dr. Benito To CO2 [Moles/Vol] 32.5 mmol/L Critically high 21.0-32.0 [facility] Comment on above: Performed By: #### T NS, PRBC #### [facility] [address] [place] [address] Dr. Benito To Creatinine [Mass/Vol] 1.85 mg/dL Critically high 0.70-1.30 [facility] Comment on above: Performed By: #### T NS, PRBC #### [facility] [address] [place] [address] Dr. Benito To EGFR-AF [place] 43 mL/min/1.73m2 Critically low >=60 [facility] Comment on above: Performed By: #### T NS, PRBC #### [facility] [address] [place] [address] Dr. Benito To EGFR-NON AF [place] 35 mL/min/1.73m2 Critically low >=60 [facility] Comment on above: Performed By: #### T NS, PRBC #### [facility] [address] [place] [address] Dr. Benito To Globulin (S) [Mass/Vol] 4.6 g/dL Normal [facility] Comment on above: Performed By: #### T NS, PRBC #### [facility] [address] [place] [address] Dr. Benito To Glucose [Mass/Vol] 124 mg/dL Critically high 74-106 [facility] Comment on above: Performed By: #### T NS, PRBC #### [facility] [address] [place] [address] Dr. Benito To Potassium [Moles/Vol] 3.9 mmol/L Normal 3.5-5.1 [facility] Comment on above: Performed By: #### T NS, PRBC #### [facility] [address] [place] [address] Dr. Benito To Protein [Mass/Vol] 7.2 g/dL Normal 6.4-8.2 [facility] Comment on above: Performed By: #### T NS, PRBC #### [facility] [address] [address] [address] Benito To Sodium [Moles/Vol] 141 mmol/L Normal 136-145 [facility] Comment on above: Performed By: #### T NS, PRBC #### [facility] [address] [place] [address] Dr. Benito To Urea nitrogen [Mass/Vol] 36.0 mg/dL Critically high 7.0-18.0 [facility] Comment on above: Performed By: #### T ZEHRA, PRBC #### [facility] [address] [place] [address] Dr. Benito To Urea nitrogen/Creatinine [Mass ratio] 19.5 mg/mg Normal [facility] Comment on above: Performed By: #### T NS, PRBC #### [facility] [address] [place] [address] Dr. Benito To XR CHEST 1 Von [...] JOSIE MIRAMONTES Date: 2022-11-15 09:46 Normal [facility] CBC AUTO DIFFon 11-14-2022 BASO # 0.0 103/ul Normal 0.0-0.1 [facility] Comment on above: Performed By: #### H GBHCT #### [facility] [address] [place] [address] Dr. Benito To Basophils/100 WBC (Bld) 0.3 % Normal 0.2-2.0 [facility] Comment on above: Performed By: #### H GBHCT #### [facility] [address] [place] [address] Dr. Benito To EO # 0.0 103/ul Normal 0.0-0.7 [facility] Comment on above: Performed By: #### H GBHCT #### [facility] [address] [place] [address] Dr. Benito To Eosinophils/100 WBC (Bld) 0.3 % Critically low 0.9-7.0 [facility] Comment on above: Performed By: #### H GBHCT #### [facility] [address] [place] [address] Dr. Benito To Erythrocyte distribution width (RBC) [Ratio] 23.7 % Critically high 11.0-15.0 [facility] Comment on above: Performed By: #### H GBHCT #### [facility] [address] [place] [address] Dr. Benito To Hematocrit (Bld) [Volume fraction] 23.7 % Critically low 42.0-54.0 [facility] Comment on above: Performed By: #### H GBHCT #### [facility] [address] [place] [address] Dr. Benito To Hemoglobin (Bld) [Mass/Vol] 7.6 g/dL Critically low 14.0-18.0 [facility] Comment on above: Performed By: #### H GBHCT #### [facility] [address] [place] [address] Dr. Benito To IG # 0.82 10e3/ul Critically high 0.00-0.03 [facility] Comment on above: Performed By: #### H GBHCT #### [facility] [address] [address] [address] Benito To IG % 7.0 % Critically high 0.0-0.5 [facility] Comment on above: Performed By: #### H GBHCT #### [facility] [address] [address] [address] Benito To LYMPH # 0.8 103/ul Critically low 1.2-3.8 [facility] Comment on above: Performed By: #### H GBHCT #### [facility] [address] [address] [address] Benito To Lymphocytes/100 WBC (Bld) 7.0 % Critically low 20.5-60.0 [facility] Comment on above: Performed By: #### H GBHCT #### [facility] [address] [address] [address] Benito To MANUAL DIFF REQ NO Normal [facility] Comment on above: Performed By: #### H GBHCT #### [facility] [address] [address] [address] Benito To MCH (RBC) [Entitic mass] 31.9 pg Normal 25.9-34.0 [facility] Comment on above: Performed By: #### H GBHCT #### [facility] [address] [address] [address] Benito To MCHC (RBC) [Mass/Vol] 32.1 g/dL Normal 29.9-35.2 [facility] Comment on above: Performed By: #### H GBHCT #### [facility] [address] [address] [address] Benito To MCV (RBC) [Entitic vol] 99.6 fL Critically high 80.0-94.0 [facility] Comment on above: Performed By: #### H GBHCT #### [facility] [address] [address] [address] Benito To MONO # 2.3 103/ul Critically high 0.3-0.8 [facility] [facility] Comment on above: Performed By: #### H GBHCT #### [facility] [address] [address] [address] Benito To Monocytes/100 WBC (Bld) 19.2 % Critically high 1.7-12.0 [facility] Comment on above: Performed By: #### H GBHCT #### [facility] [address] [address] [address] Benito To NEUT # 7.8 103/ul Critically high 1.4-6.5 [facility] Comment on above: Performed By: #### H GBHCT #### [facility] [address] [address] [address] Benito To Neutrophils/100 WBC (Bld) 66.2 % Normal 43.0-75.0 [facility] Comment on above: Performed By: #### H GBHCT #### [facility] [address] [place] [address] Dr. Benito To Platelet mean volume (Bld) [Entitic vol] 14.7 fL Critically high 9.5-13.5 [facility] Comment on above: Performed By: #### H GBHCT #### [facility] [address] [address] [address] Benito To PLT 73 103/ul Critically low 150-450 [facility] Comment on above: Performed By: #### H GBHCT #### [facility] [address] [place] [address] Dr. Benito To RBC 2.38 106/ul Critically low 4.70-6.10 [facility] Comment on above: Performed By: #### H GBHCT #### [facility] [address] [place] [address] Dr. Benito To WBC 11.7 103/ul Critically high 4.0-11.0 [facility] Comment on above: Performed By: #### H GBHCT #### [facility] [address] [place] [address] Dr. Benito To CBC W MANUAL DIFFon 11-15-19 23 ANISOCYTOSIS 3+ Normal [facility] Comment on above: Performed By: #### T NS, PRBC #### [facility] [address] [place] [address] Dr. Benito To ATYPICAL LYMPH # Normal [facility] Comment on above: Performed By: #### T NS, PRBC #### [facility] [address] [place] [address] Dr. Benito To ATYPICAL LYMPH % Normal [facility] Comment on above: Performed By: #### T NS, PRBC #### [facility] [address] [place] [address] Dr. Benito To BAND # 0.2 103/ul Normal 0.0-0.3 [facility] Comment on above: Performed By: #### T NS, PRBC #### [facility] [address] [place] [address] Dr. Benito To BAND % 2 % Normal 0-5 [facility] Comment on above: Performed By: #### T NS, PRBC #### [facility] [address] [place] [address] Dr. Benito To BASOM # 0.00 103/ul Normal 0.00-0.10 [facility] Comment on above: Performed By: #### T NS, PRBC #### [facility] [address] [place] [address] Dr. Benito To BASOM % 0.0 % Critically low 0.2-2.0 [facility] Comment on above: Performed By: #### T NS, PRBC #### [facility] [address] [place] [address] Dr. Benito To BLAST # Normal [facility] Comment on above: Performed By: #### T NS, PRBC #### [facility] [address] [place] [address] Dr. Benito To BLAST % Normal [facility] Comment on above: Performed By: #### T NS, PRBC #### [facility] [address] [place] [address] Dr. Benito To CORRECTED WBC Normal 4.0-11.0 [facility] Comment on above: Performed By: #### T NS, PRBC #### [facility] [address] [address] [address] Benito To EOS # 0.00 103/ul Normal 0.00-0.70 [facility] Comment on above: Performed By: #### T NS, PRBC #### [facility] [address] [address] [address] Benito To EOS% 0.0 % Critically low 0.9-7.0 [facility] Comment on above: Performed By: #### T NS, PRBC #### [facility] [address] [address] [address] Benito To HCT 20.3 % Critically low 42.0-54.0 [facility] Comment on above: Performed By: #### T NS, PRBC #### [facility] [address] [address] [address] Benito To HGB 6.4 g/dl Critically low 14.0-18.0 [facility] Comment on above: Performed By: #### T NS, PRBC #### [facility] [address] [address] [address] Benito To LYMPHM # 1.13 103/ul Critically low 1.20-3.80 [facility] Comment on above: Performed By: #### T NS, PRBC #### [facility] [address] [address] [address] Benito To LYMPHM% 10.0 % Critically low 20.5-60.0 [facility] Comment on above: Performed By: #### T NS, PRBC #### [facility] [address] [address] [address] Benito To MCH 31.5 pg Normal 25.9-34.0 [facility] Comment on above: Performed By: #### T NS, PRBC #### [facility] [address] [address] [address] Benito To MCHC 31.5 g/dl Normal 29.9-35.2 [facility] Comment on above: Performed By: #### T NS, PRBC #### [facility] [address] [place] [address] Dr. Benito To MCV 100.0 fL Critically high 80.0-94.0 [facility] Comment on above: Performed By: #### T NS, PRBC #### [facility] [address] [place] [address] Dr. Benito To METAMYELOCYTE # 0.5 103/ul Normal [facility] Comment on above: Performed By: #### T NS, PRBC #### [facility] [address] [place] [address] Dr. Benito To METAMYELOCYTE % 4 % Normal [facility] Comment on above: Performed By: #### T NS, PRBC #### [facility] [address] [place] [address] Dr. Benito To MICROCYTOSIS 1+ Normal [facility] Comment on above: Performed By: #### T NS, PRBC #### [facility] [address] [place] [address] Dr. Benito To MONOM# 0.90 103/ul Critically high 0.30-0.80 [facility] Comment on above: Performed By: #### T NS, PRBC #### [facility] [address] [place] [address] Dr. Benito To MONOM% 8.0 % Normal 1.7-12.0 [facility] Comment on above: Performed By: #### T NS, PRBC #### [facility] [address] [place] [address] Dr. Benito To MYELOCYTE # Normal [facility] Comment on above: Performed By: #### T NS, PRBC #### [facility] [address] [place] [address] Dr. Benito To MYELOCYTE % Normal [facility] Comment on above: Performed By: #### T NS, PRBC #### [facility] [address] [place] [address] Dr. Benito To NRBC Normal [facility] Comment on above: Performed By: #### T NS, PRBC #### [facility] [address] [place] [address] Dr. Benito To PLT 78 103/ul Critically low 150-450 [facility] Comment on above: Performed By: #### T NS, PRBC #### [facility] [address] [address] [address] Benito To RBC 2.03 106/ul Critically low 4.70-6.10 [facility] Comment on above: Performed By: #### T NS, PRBC #### [facility] [address] [address] [address] Benito To RDW 25.1 % Critically high 11.0-15.0 [facility] Comment on above: Performed By: #### T NS, PRBC #### [facility] [address] [address] [address] Benito To SEG # 8.59 103/ul Critically high 1.40-6.50 [facility] Comment on above: Performed By: #### T NS, PRBC #### [facility] [address] [address] [address] Benito To SEG % 76.0 % Critically high 43.0-75.0 [facility] Comment on above: Performed By: #### T NS, PRBC #### [facility] [address] [address] [address] Benito To WBC 11.3 103/ul Critically high 4.0-11.0 [facility] Comment on above: Performed By: #### T NS, PRBC #### [facility] [address] [address] [address] Benito To ECHOCARDIO M/2D COMPLETEon 0 11-14-2022 ECHOCARDIO M/2D COMPLETE Patient: SANDIP BROUSSARD Exam Date: 11/14/2022 : 1940 Gender:M Ordering : DR FLASH PEARL . Admission #: [id number] Family : Order #: [id number] CLICK HERE TO VIEW EXAM ECHOCARDIOGRAM REPORT [...] Gomez M.D. on 11/14/2022 at 20:08 [facility] PRBC LEUKOREDUCEDon 11-15-19 23 ABO and Rh group Nom (Bld) Cross Match Result Compatible Unit Blood Type A Pos Unit Number [id number] Status Information Issued Product ID Red Blood Cells Product Code [id number] Issue Date/Time [id number] [facility] Comment on above: Performed By: #### P RBC, TNS #### [facility] [address] [place] [address] Dr. Benito To PROF 14(COMP METB)on 023 Albumin [Mass/Vol] 2.8 g/dL Critically low 3.4-5.0 [facility] e [facility] Comment on above: Performed By: #### H H #### [facility] [address] [place] [address] Dr. Benito To Albumin/Globulin [Mass ratio] 0.6 {ratio} Normal [facility] Comment on above: Performed By: #### H H #### [facility] [address] [place] [address] Dr. Benito To ALP [Catalytic activity/Vol] 146 U/L Critically high 46-116 [facility] Comment on above: Performed By: #### H H #### [facility] [address] [address] [address] Benito To ALT [Catalytic activity/Vol] 55 U/L Normal 16-63 [facility] Comment on above: Performed By: #### H H #### [facility] [address] [address] [address] Benito To Anion gap [Moles/Vol] 12.9 mmol/L Normal Th e [facility] Comment on above: Performed By: #### H H #### [facility] [address] [address] [address] Benito To AST [Catalytic activity/Vol] 30 U/L Normal 15-37 [facility] Comment on above: Performed By: #### H H #### [facility] [address] [address] [address] Benito To Bilirubin [Mass/Vol] 1.3 mg/dL Critically high 0.2-1.0 [facility] Comment on above: Performed By: #### H H #### [facility] [address] [address] [address] Benito To Calcium [Mass/Vol] 8.6 mg/dL Normal 8.5-10.1 [facility] Comment on above: Performed By: #### H H #### [facility] [address] [address] [address] Benito To Chloride [Moles/Vol] 103 mmol/L Normal 98-107 [facility] Comment on above: Performed By: #### H H #### [facility] [address] [address] [address] Benito To CO2 [Moles/Vol] 32.2 mmol/L Critically high 21.0-32.0 [facility] Comment on above: Performed By: #### H H #### [facility] [address] [address] [address] Benito To Creatinine [Mass/Vol] 1.87 mg/dL Critically high 0.70-1.30 [facility] Comment on above: Performed By: #### H H #### [facility] [address] [address] [address] Benito To EGFR-AF [place] 42 mL/min/1.73m2 Critically low >=60 [facility] Comment on above: Performed By: #### H H #### [facility] [address] [address] [address] Benito To EGFR-NON AF [place] 35 mL/min/1.73m2 Critically low >=60 [facility] Comment on above: Performed By: #### H H #### [facility] [address] [address] [address] Benito To Globulin (S) [Mass/Vol] 4.6 g/dL Normal [facility] Comment on above: Performed By: #### H H #### [facility] [address] [address] [address] Benito To Glucose [Mass/Vol] 113 mg/dL Critically high 74-106 [facility] Comment on above: Performed By: #### H H #### [facility] [address] [address] [address] Benito To Potassium [Moles/Vol] 4.1 mmol/L Normal 3.5-5.1 [facility] Comment on above: Performed By: #### H H #### [facility] [address] [address] [address] Benito To Protein [Mass/Vol] 7.4 g/dL Normal 6.4-8.2 [facility] Comment on above: Performed By: #### H H #### [facility] [address] [address] [address] Benito To Sodium [Moles/Vol] 144 mmol/L Normal 136-145 [facility] Comment on above: Performed By: #### H H #### [facility] [address] [address] [address] Benito To Urea nitrogen [Mass/Vol] 39.0 mg/dL Critically high 7.0-18.0 [facility] Comment on above: Performed By: #### H H #### [facility] [address] [place] [address] Dr. Benito To Urea nitrogen/Creatinine [Mass ratio] 20.9 mg/mg Normal [facility] Comment on above: Performed By: #### H H #### [facility] [address] [place] [address] Dr. Benito To BNPon 11-13-2022 Natriuretic peptide B (Bld) [Mass/Vol] 5483.0 pg/mL Critically high <=1,800.0 [facility] Comment on above: Performed By: #### H GBHCT #### [facility] [address] [place] [address] Dr. Benito To CBC W MANUAL DIFFon 11-14-19 ANISOCYTOSIS SLIGHT Normal [facility] Comment on above: Performed By: #### T NS, PRBC #### [facility] [address] [place] [address] Dr. Benito To ATYPICAL LYMPH # Normal [facility] Comment on above: Performed By: #### T NS, PRBC #### [facility] [address] [place] [address] Dr. Benito To ATYPICAL LYMPH % Normal [facility] Comment on above: Performed By: #### T NS, PRBC #### [facility] [address] [place] [address] Dr. Benito To BAND # 0.2 103/ul Normal 0.0-0.3 [facility] Comment on above: Performed By: #### T NS, PRBC #### [facility] [address] [place] [address] Dr. Benito To BAND % 2 % Normal 0-5 [facility] Comment on above: Performed By: #### T NS, PRBC #### [facility] [address] [place] [address] Dr. Benito To BASOM # 0.00 103/ul Normal 0.00-0.10 [facility] Comment on above: Performed By: #### T NS, PRBC #### [facility] [address] [place] [address] Dr. Benito To BASOM % 0.0 % Critically low 0.2-2.0 [facility] Comment on above: Performed By: #### T NS, PRBC #### [facility] [address] [place] [address] Dr. Benito To BLAST # Normal [facility] Comment on above: Performed By: #### T NS, PRBC #### [facility] [address] [place] [address] Dr. Benito To BLAST % Normal [facility] Comment on above: Performed By: #### T NS, PRBC #### [facility] [address] [place] [address] Dr. Benito To CORRECTED WBC Normal 4.0-11.0 [facility] Comment on above: Performed By: #### T NS, PRBC #### [facility] [address] [place] [address] Dr. Benito To EOS # 0.00 103/ul Normal 0.00-0.70 [facility] Comment on above: Performed By: #### T NS, PRBC #### [facility] [address] [place] [address] Dr. Benito To EOS% 0.0 % Critically low 0.9-7.0 [facility] Comment on above: Performed By: #### T NS, PRBC #### [facility] [address] [place] [address] Dr. Benito To HCT 23.1 % Critically low 42.0-54.0 [facility] Comment on above: Performed By: #### T NS, PRBC #### [facility] [address] [place] [address] Dr. Benito To HGB 7.2 g/dl Critically low 14.0-18.0 [facility] Comment on above: Performed By: #### T NS, PRBC #### [facility] [address] [place] [address] Dr. Benito To LYMPHM # 1.38 103/ul Normal 1.20-3.80 [facility] Comment on above: Performed By: #### T NS, PRBC #### [facility] [address] [address] [address] Benito To LYMPHM% 13.0 % Critically low 20.5-60.0 [facility] Comment on above: Performed By: #### T NS, PRBC #### [facility] [address] [place] [address] Dr. Benito To MACROCYTOSIS SLIGHT Normal [facility] Comment on above: Performed By: #### T NS, PRBC #### [facility] [address] [place] [address] Dr. Benito To MCH 32.0 pg Normal 25.9-34.0 [facility] Comment on above: Performed By: #### T NS, PRBC #### [facility] [address] [place] [address] Dr. Benito To MCHC 31.2 g/dl Normal 29.9-35.2 [facility] Comment on above: Performed By: #### T NS, PRBC #### [facility] [address] [place] [address] Dr. Benito To MCV 102.7 fL Critically high 80.0-94.0 [facility] Comment on above: Performed By: #### T NS, PRBC #### [facility] [address] [place] [address] Dr. Benito To METAMYELOCYTE # Normal [facility] Comment on above: Performed By: #### T NS, PRBC #### [facility] [address] [place] [address] Dr. Benito To METAMYELOCYTE % Normal [facility] Comment on above: Performed By: #### T NS, PRBC #### [facility] [address] [place] [address] Dr. Benito To MONOM# 0.74 103/ul Normal 0.30-0.80 [facility] Comment on above: Performed By: #### T NS, PRBC #### [facility] [address] [place] [address] Dr. Benito To MONOM% 7.0 % Normal 1.7-12.0 [facility] Comment on above: Performed By: #### T NS, PRBC #### [facility] [address] [place] [address] Dr. Benito To MPV 0.0 fL Critically low 9.5-13.5 [facility] Comment on above: Performed By: #### T NS, PRBC #### [facility] [address] [place] [address] Dr. Benito To MYELOCYTE # 0.1 103/ul Normal [facility] Comment on above: Performed By: #### T NS, PRBC #### [facility] [address] [place] [address] Dr. Benito To MYELOCYTE % 1 % Normal [facility] Comment on above: Performed By: #### T NS, PRBC #### [facility] [address] [place] [address] Dr. Benito To NRBC Normal [facility] Comment on above: Performed By: #### T NS, PRBC #### [facility] [address] [place] [address] Dr. Benito To PLT 67 103/ul Critically low 150-450 [facility] Comment on above: Performed By: #### T NS, PRBC #### [facility] [address] [place] [address] Dr. Benito oT RBC 2.25 106/ul Critically low 4.70-6.10 [facility] Comment on above: Performed By: #### T NS, PRBC #### [facility] [address] [place] [address] Dr. Benito To RDW 25.2 % Critically high 11.0-15.0 [facility] Comment on above: Performed By: #### T NS, PRBC #### [facility] [address] [place] [address] Dr. Benito To SEG # 8.16 103/ul Critically high 1.40-6.50 [facility] Comment on above: Performed By: #### T NS, PRBC #### [facility] [address] [place] [address] Dr. Benito To SEG % 77.0 % Critically high 43.0-75.0 [facility] Comment on above: Performed By: #### T NS, PRBC #### [facility] [address] [place] [address] Dr. Benito To WBC 10.6 103/ul Normal 4.0-11.0 [facility] Comment on above: Performed By: #### T NS, PRBC #### [facility] [address] [place] [address] Dr. Benito To [facility]on 10-26 SARS-CoV-2 (COVID-19) RNA JOSSIE+probe Ql (Unsp spec) Not detected Normal NOT DETECTED [facility] Comment on [...] for this test is supported by the [place] of [employer] and Human Service's declaration that [...] Performed By: #### T NS, PRBC #### [facility] [address] [place] [address] Dr. Benito To FERRITINon 11-13-2022 Ferritin [Mass/Vol] 6375.0 ng/mL Critically high 26.0-388. 0 [facility] Comment on above: Performed By: #### T NS, PRBC #### [facility] [address] [place] [address] Dr. Benito To IRON AND TIBCon 11-13-2022 Iron [Mass/Vol] 148.0 ug/dL Normal 65.0-175.0 [facility] Comment on above: Performed By: #### T NS, PRBC #### [facility] [address] [address] [address] Benito To TIBC DIRECT 145.0 ug/dL Critically low 250.0-450.0 [facility] Comment on above: Performed By: #### T NS, PRBC #### [facility] [address] [place] [address] Dr. Benito To PROF 14(COMP METB)on 023 Albumin [Mass/Vol] 2.7 g/dL Critically low 3.4-5.0 [facility] Comment on above: Performed By: #### H GBHCT #### [facility] [address] [place] [address] Dr. Benito To Albumin/Globulin [Mass ratio] 0.6 {ratio} Normal [facility] Comment on above: Performed By: #### H GBHCT #### [facility] [address] [place] [address] Dr. Benito To ALP [Catalytic activity/Vol] 140 U/L Critically high 46-116 [facility] Comment on above: Performed By: #### H GBHCT #### [facility] [address] [place] [address] Dr. Benito oT ALT [Catalytic activity/Vol] 53 U/L Normal 16-63 [facility] Comment on above: Performed By: #### H GBHCT #### [facility] [address] [place] [address] Dr. Benito To Anion gap [Moles/Vol] 14.4 mmol/L Normal [facility] Comment on above: Performed By: #### H GBHCT #### [facility] [address] [place] [address] Dr. Benito To AST [Catalytic activity/Vol] 31 U/L Normal 15-37 [facility] Comment on above: Performed By: #### H GBHCT #### [facility] [address] [address] [address] Benito To Bilirubin [Mass/Vol] 1.3 mg/dL Critically high 0.2-1.0 [facility] Comment on above: Performed By: #### H GBHCT #### [facility] [address] [place] [address] Dr. Benito To Calcium [Mass/Vol] 8.8 mg/dL Normal 8.5-10.1 [facility] Comment on above: Performed By: #### H GBHCT #### [facility] [address] [address] [address] Benito To Chloride [Moles/Vol] 103 mmol/L Normal 98-107 [facility] Comment on above: Performed By: #### H GBHCT #### [facility] [address] [place] [address] Dr. Benito To CO2 [Moles/Vol] 29.7 mmol/L Normal 21.0-32.0 [facility] Comment on above: Performed By: #### H GBHCT #### [facility] [address] [address] [address] Benito To Creatinine [Mass/Vol] 1.95 mg/dL Critically high 0.70-1.30 [facility] Comment on above: Performed By: #### H GBHCT #### [facility] [address] [place] [address] Dr. Benito To EGFR-AF [place] 40 mL/min/1.73m2 Critically low >=60 [facility] Comment on above: Performed By: #### H GBHCT #### [facility] [address] [place] [address] Dr. Benito To EGFR-NON AF [place] 33 mL/min/1.73m2 Critically low >=60 [facility] Comment on above: Performed By: #### H GBHCT #### [facility] [address] [place] [address] Dr. Benito To Globulin (S) [Mass/Vol] 4.7 g/dL Normal [facility] Comment on above: Performed By: #### H GBHCT #### [facility] [address] [address] [address] Benito To Glucose [Mass/Vol] 198 mg/dL Critically high 74-106 [facility] Comment on above: Performed By: #### H GBHCT #### [facility] [address] [address] [address] Benito To Potassium [Moles/Vol] 4.1 mmol/L Normal 3.5-5.1 [facility] Comment on above: Performed By: #### H GBHCT #### [facility] [address] [address] [address] Benito To Protein [Mass/Vol] 7.4 g/dL Normal 6.4-8.2 [facility] Comment on above: Performed By: #### H GBHCT #### [facility] [address] [place] [address] Dr. Benito To Sodium [Moles/Vol] 143 mmol/L Normal 136-145 [facility] Comment on above: Performed By: #### H GBHCT #### [facility] [address] [address] [address] Benito To Urea nitrogen [Mass/Vol] 39.0 mg/dL Critically high 7.0-18.0 [facility] Comment on above: Performed By: #### H GBHCT #### [facility] [address] [address] [address] Benito To Urea nitrogen/Creatinine [Mass ratio] 20.0 mg/mg Normal [facility] Comment on above: Performed By: #### H GBHCT #### [facility] [address] [address] [address] Benito To TROPONIN, HIGH SENSITIVITYon 11-13-2022 HSTROP 47.8 pg/mL Normal 4.0-76.1 [facility] Comment on above: Result Comment: CUT- OFF POINTS HAVE BEEN ESTABLISHED BASED ON THE FOURTH UNIVERSAL DEFINITIONS OF MYOCARDIAL INFARCTION. THE UPPER REFERENCE LIMIT (URL) OF TROPONIN, DEFINED THE 99TH PERCENTILE OF cTnI DISTRIBUTION IN A REFERENCE POPULATION, HAS BEEN CONFIRMED THE DECISION THRESHOLD FOR [place] DIAGNOSIS. Performed By: #### H GBHCT #### [facility] [address] [address] [address] Benito To TYPE AND SCREENon 11-13-2022 TYPE AND SCREEN Negative Normal [facility] Comment on above: Performed By: #### T NS, PRBC #### [facility] [address] [address] [address] Benito To XR CHEST 1 Von [...] OUMOU MONTIEL Date: 2022-11-13 13:36 Normal [facility] PRBC LEUKOREDUCEDon 11-11-19 ABO and Rh group Nom (Bld) Cross Match Result Compatible Unit Blood Type A Pos Unit Number [id number] Status Information Transfused Product ID Red Blood Cells Product Code [id number] Cross Match Result Compatible Unit Blood Type A Pos Unit Number [id number] Status Information Transfused Product ID Red Blood Cells Product Code [id number] Normal [facility] Comment on above: Performed By: #### H H #### [facility] [address] [address] [address] Benito To HEMOGLOBIN AND HEMATOCRITon 11-06-2022 Hematocrit (Bld) [Volume fraction] 20.3 % Critically low 42.0-54.0 [facility] Comment on above: Performed By: #### T NS, PRBC #### [facility] [address] [address] [address] Benito To Hemoglobin (Bld) [Mass/Vol] 6.4 g/dL Critically low 14.0-18.0 [facility] Comment on above: Performed By: #### T NS, PRBC #### [facility] [address] [place] [address] Dr. Benito To TYPE AND SCREENon 11-06-2022 TYPE AND SCREEN Negative Normal [facility] Comment on above: Performed By: #### H H #### [facility] [address] [place] [address] Dr. Benito To PRBC LEUKOREDUCEDon 11-01-19 ABO and Rh group Nom (Bld) Cross Match Result Compatible Unit Blood Type A Pos Unit Number [id number] Status Information Transfused Product ID Red Blood Cells Product Code [id number] Cross Match Result Compatible Unit Blood Type A Pos Unit Number [id number] Status Information Transfused Product ID Red Blood Cells Product Code [id number] Normal [facility] Comment on above: Performed By: #### T NS, PRBC #### [facility] [address] [place] [address] Dr. Benito To ABO and Rh group Nom (Bld) Cross Match Result Compatible Unit Blood Type A Pos Unit Number [id number] Status Information Transfused Product ID Red Blood Cells Product Code [id number] Cross Match Result Compatible Unit Blood Type A Pos Unit Number [id number] Status Information Transfused Product ID Red Blood Cells Product Code [id number] Normal [facility] Comment on above: Performed By: #### T NS, PRBC #### [facility] [address] [place] [address] Dr. Benito To HEMOGRAM AND PLATELon 2022 Hematocrit (Bld) [Volume fraction] 21.7 % Critically low 42.0-54.0 [facility] Comment on above: Performed By: #### T NS, PRBC #### [facility] [address] [place] [address] Dr. Benito To Hemoglobin (Bld) [Mass/Vol] 6.9 g/dL Critically low 14.0-18.0 [facility] Comment on above: Performed By: #### T NS, PRBC #### [facility] [address] [address] [address] Benito To MCH (RBC) [Entitic mass] 31.7 pg Normal 25.9-34.0 [facility] Comment on above: Performed By: #### T NS, PRBC #### [facility] [address] [place] [address] Dr. Benito To MCHC (RBC) [Mass/Vol] 31.8 g/dL Normal 29.9-35.2 [facility] Comment on above: Performed By: #### T NS, PRBC #### [facility] [address] [place] [address] Dr. Benito To MCV (RBC) [Entitic vol] 99.5 fL Critically high 80.0-94.0 [facility] Comment on above: Performed By: #### T NS, PRBC #### [facility] [address] [place] [address] Dr. Benito To PLT 54 103/ul Critically low 150-450 [facility] Comment on above: Performed By: #### T NS, PRBC #### [facility] [address] [place] [address] Dr. Benito To RBC 2.18 106/ul Critically low 4.70-6.10 [facility] Comment on above: Performed By: #### T NS, PRBC #### [facility] [address] [place] [address] Dr. Benito To WBC 4.3 103/ul Normal 4.0-11.0 [facility] Comment on above: Performed By: #### T NS, PRBC #### [facility] [address] [place] [address] Dr. Benito To TYPE AND SCREENon 10-25-2022 TYPE AND SCREEN Negative Normal [facility] Comment on above: Performed By: #### T NS, PRBC #### [facility] [address] [place] [address] Dr. Benito To HEMOGRAM AND PLATELon 2022 Hematocrit (Bld) [Volume fraction] 19.3 % Critically low 42.0-54.0 [facility] Comment on above: Performed By: #### T NS, PRBC #### [facility] [address] [place] [address] Dr. Benito To Hemoglobin (Bld) [Mass/Vol] 6.3 g/dL Critically low 14.0-18.0 [facility] Comment on above: Performed By: #### T NS, PRBC #### [facility] [address] [place] [address] Dr. Benito To MCH (RBC) [Entitic mass] 32.6 pg Normal 25.9-34.0 [facility] Comment on above: Performed By: #### T NS, PRBC #### [facility] [address] [place] [address] Dr. Benito To MCHC (RBC) [Mass/Vol] 32.6 g/dL Normal 29.9-35.2 [facility] Comment on above: Performed By: #### T NS, PRBC #### [facility] [address] [place] [address] Dr. Benito To MCV (RBC) [Entitic vol] 100.0 fL Critically high 80.0-94.0 [facility] Comment on above: Performed By: #### T NS, PRBC #### [facility] [address] [place] [address] Dr. Benito To PLT 53 103/ul Critically low 150-450 [facility] Comment on above: Performed By: #### T NS, PRBC #### [facility] [address] [place] [address] Dr. Benito To RBC 1.93 106/ul Critically low 4.70-6.10 [facility] Comment on above: Performed By: #### T NS, PRBC #### [facility] [address] [place] [address] Dr. Benito To WBC 2.8 103/ul Critically low 4.0-11.0 [facility] Comment on above: Performed By: #### T NS, PRBC #### [facility] [address] [place] [address] Dr. Benito To PRBC LEUKOREDUCEDon 10-17-19 23 PRBC LEUKOREDUCED Cross Match Result Compatible Unit Blood Type A Pos Unit Number [id number] Status Information Transfused Product ID Red Blood Cells Product Code [id number] Normal [facility] Comment on above: Performed By: #### T NS, PRBC #### [facility] [address] [place] [address] Dr. Benito To TYPE AND SCREENon 10-16-2022 TYPE AND SCREEN Negative Normal [facility] Comment on above: Performed By: #### T NS, PRBC #### [facility] [address] [place] [address] Dr. Benito To HEMOGLOBIN AND HEMATOCRITon 10-02-2022 Hematocrit (Bld) [Volume fraction] 24.6 % Critically low 42.0-54.0 [facility] Comment on above: Performed By: #### H GBHCT #### [facility] [address] [place] [address] Dr. Benito To Hemoglobin (Bld) [Mass/Vol] 7.9 g/dL Critically low 14.0-18.0 [facility] Comment on above: Performed By: #### H GBHCT #### [facility] [address] [place] [address] Dr. Benito To TYPE AND SCREENon 10-02-2022 TYPE AND SCREEN Negative Normal [facility] Comment on above: Performed By: #### T NS, PRBC #### [facility] [address] [place] [address] Dr. Benito To PRBC LEUKOREDUCEDon 10-02-19 23 ABO and Rh group Nom (Bld) Cross Match Result Compatible Unit Blood Type A Pos Unit Number [id number] Status Information Transfused Product ID Red Blood Cells Product Code [id number] Cross Match Result Compatible Unit Blood Type A Pos Unit Number [id number] Status Information Transfused Product ID Red Blood Cells Product Code [id number] Normal [facility] Comment on above: Performed By: #### T NS, PRBC #### [facility] [address] [place] [address] Dr. Benito To ABO and Rh group Nom (Bld) Cross Match Result Compatible Unit Blood Type A Pos Unit Number [id number] Status Information Transfused Product ID Red Blood Cells Product Code H8365U47 Cross Match Result Compatible Unit Blood Type A Pos Unit Number [id number] Status Information Transfused Product ID Red Blood Cells Product Code V9624M55 Normal [facility] Comment on above: Performed By: #### P RBC, TNS #### [facility] [address] [place] [address] Dr. Benito To ABO and Rh group Nom (Bld) Cross Match Result Compatible Unit Blood Type A Pos Unit Number [id number] Status Information Released Specimen Exp Date Product ID Red Blood Cells Product Code [id number] Cross Match Result Compatible Unit Blood Type A Pos Unit Number [id number] Status Information Transfused Product ID Red Blood Cells Product Code P5312E27 [facility] Comment on above: Performed By: #### P RBC, TNS #### [facility] [address] [place] [address] Dr. Benito To PRBC LEUKOREDUCED Cross Match Result Compatible Unit Blood Type O Neg Unit Number [id number] Status Information Transfused Product ID Red Blood Cells Product Code [id number] [facility] Comment on above: Performed By: #### P RBC, TNS #### [facility] [address] [place] [address] Dr. Benito To HEMOGLOBIN AND HEMATOCRITon 09-25-2022 Hematocrit (Bld) [Volume fraction] 21.2 % Critically low 42.0-54.0 [facility] Comment on above: Performed By: #### T NS, PRBC #### [facility] [address] [place] [address] Dr. Benito To Hemoglobin (Bld) [Mass/Vol] 6.7 g/dL Critically low 14.0-18.0 [facility] Comment on above: Performed By: #### T NS, PRBC #### [facility] [address] [place] [address] Dr. Benito To TYPE AND SCREENon 09-25-2022 TYPE AND SCREEN Negative Normal [facility] Comment on above: Performed By: #### P RBC, TNS #### [facility] [address] [place] [address] Dr. Benito To HEMOGRAM AND PLATELon 2022 Hematocrit (Bld) [Volume fraction] 22.3 % Critically low 42.0-54.0 [facility] Comment on above: Performed By: #### H H #### [facility] [address] [place] [address] Dr. Benito To Hemoglobin (Bld) [Mass/Vol] 7.3 g/dL Critically low 14.0-18.0 [facility] Comment on above: Performed By: #### H H #### [facility] [address] [place] [address] Dr. Benito To MCH (RBC) [Entitic mass] 32.0 pg Normal 25.9-34.0 [facility] Comment on above: Performed By: #### H H #### [facility] [address] [place] [address] Dr. Benito To MCHC (RBC) [Mass/Vol] 32.7 g/dL Normal 29.9-35.2 [facility] Comment on above: Performed By: #### H H #### [facility] [address] [place] [address] Dr. Benito To MCV (RBC) [Entitic vol] 97.8 fL Critically high 80.0-94.0 [facility] Comment on above: Performed By: #### H H #### [facility] [address] [place] [address] Dr. Benito To PLT 49 103/ul Critically low 150-450 [facility] Comment on above: Performed By: #### H H #### [facility] [address] [place] [address] Dr. Benito To RBC 2.28 106/ul Critically low 4.70-6.10 [facility] Comment on above: Performed By: #### H H #### [facility] [address] [place] [address] Dr. Benito To WBC 2.4 103/ul Critically low 4.0-11.0 [facility] Comment on above: Performed By: #### H H #### [facility] [address] [place] [address] Dr. Benito To TYPE AND SCREENon 09-11-2022 TYPE AND SCREEN Negative Normal [facility] Comment on above: Performed By: #### P RBC, TNS #### [facility] [address] [place] [address] Dr. Benito To HEMOGLOBIN AND HEMATOCRITon 09-05-2022 Hematocrit (Bld) [Volume fraction] 20.7 % Critically low 42.0-54.0 [facility] Comment on above: Performed By: #### T NS, PRBC #### [facility] [address] [place] [address] Dr. Benito To Hemoglobin (Bld) [Mass/Vol] 6.8 g/dL Critically low 14.0-18.0 [facility] Comment on above: Performed By: #### T NS, PRBC #### [facility] [address] [place] [address] Dr. Benito To TYPE AND SCREENon 09-05-2022 TYPE AND SCREEN Negative Normal [facility] Comment on above: Performed By: #### T NS, PRBC #### [facility] [address] [place] [address] Dr. Benito To PRBC LEUKOREDUCEDon 08-24-19 ABO and Rh group Nom (Bld) Cross Match Result Compatible Unit Blood Type O Pos Unit Number [id number] Status Information Transfused Product ID Red Blood Cells Product Code [id number] Cross Match Result Compatible Unit Blood Type O Pos Unit Number [id number] Status Information Transfused Product ID Red Blood Cells Product Code [id number] Normal [facility] Comment on above: Performed By: #### T NS, PRBC #### [facility] [address] [place] [address] Dr. Benito To ABO and Rh group Nom (Bld) Cross Match Result Compatible Unit Blood Type A Pos Unit Number [id number] Status Information Transfused Product ID Red Blood Cells Product Code [id number] Cross Match Result Compatible Unit Blood Type A Pos Unit Number [id number] Status Information Transfused Product ID Red Blood Cells Product Code [id number] Normal [facility] Comment on above: Performed By: #### P RBC, TNS #### [facility] [address] [place] [address] Dr. Benito To HEMOGRAM AND PLATELon 2022 Hematocrit (Bld) [Volume fraction] 26.2 % Critically low 42.0-54.0 [facility] Comment on above: Performed By: #### T NS, PRBC #### [facility] [address] [place] [address] Dr. Benito To Hemoglobin (Bld) [Mass/Vol] 7.7 g/dL Critically low 14.0-18.0 [facility] Comment on above: Performed By: #### T NS, PRBC #### [facility] [address] [place] [address] Dr. Benito To MCH (RBC) [Entitic mass] 30.2 pg Normal 25.9-34.0 [facility] Comment on above: Performed By: #### T NS, PRBC #### [facility] [address] [place] [address] Dr. Benito To MCHC (RBC) [Mass/Vol] 29.4 g/dL Critically low 29.9-35.2 [facility] Comment on above: Performed By: #### T NS, PRBC #### [facility] [address] [place] [address] Dr. Benito To MCV (RBC) [Entitic vol] 102.7 fL Critically high 80.0-94.0 [facility] Comment on above: Performed By: #### T NS, PRBC #### [facility] [address] [place] [address] Dr. Benito To PLT 44 103/ul Critically low 150-450 [facility] Comment on above: Performed By: #### T NS, PRBC #### [facility] [address] [place] [address] Dr. Benito To RBC 2.55 106/ul Critically low 4.70-6.10 [facility] Comment on above: Performed By: #### T NS, PRBC #### [facility] [address] [place] [address] Dr. Benito To WBC 1.8 103/ul Critically low 4.0-11.0 [facility] Comment on above: Performed By: #### T NS, PRBC #### [facility] [address] [place] [address] Dr. Benito To TYPE AND SCREENon 08-21-2022 TYPE AND SCREEN Negative Normal [facility] Comment on above: Performed By: #### T NS, PRBC #### [facility] [address] [place] [address] Dr. Benito To HEMOGRAM AND PLATELon 2022 Hematocrit (Bld) [Volume fraction] 22.4 % Critically low 42.0-54.0 [facility] Comment on above: Performed By: #### H H #### [facility] [address] [place] [address] Dr. Benito To Hemoglobin (Bld) [Mass/Vol] 7.2 g/dL Critically low 14.0-18.0 [facility] Comment on above: Performed By: #### H H #### [facility] [address] [place] [address] Dr. Benito To MCH (RBC) [Entitic mass] 30.9 pg Normal 25.9-34.0 [facility] Comment on above: Performed By: #### H H #### [facility] [address] [place] [address] Dr. Benito To MCHC (RBC) [Mass/Vol] 32.1 g/dL Normal 29.9-35.2 [facility] Comment on above: Performed By: #### H H #### [facility] [address] [place] [address] Dr. Benito To MCV (RBC) [Entitic vol] 96.1 fL Critically high 80.0-94.0 [facility] Comment on above: Performed By: #### H H #### [facility] [address] [place] [address] Dr. Benito To PLT 59 103/ul Critically low 150-450 [facility] Comment on above: Performed By: #### H H #### [facility] [address] [place] [address] Dr. Benito To RBC 2.33 106/ul Critically low 4.70-6.10 [facility] Comment on above: Performed By: #### H H #### [facility] [address] [place] [address] Dr. Benito To WBC 1.8 103/ul Critically low 4.0-11.0 [facility] Comment on above: Performed By: #### H H #### [facility] [address] [place] [address] Dr. Benito To TYPE AND SCREENon 08-14-2022 TYPE AND SCREEN Negative Normal [facility] Comment on above: Performed By: #### P RBC, TNS #### [facility] [address] [place] [address] Dr. Benito To PRBC LEUKOREDUCEDon 08-12-19 PRBC LEUKOREDUCED Cross Match Result Compatible Unit Blood Type A Pos Unit Number [id number] Status Information Transfused Product ID Red Blood Cells Product Code [id number] Normal [facility] Comment on above: Performed By: #### P RBC, TNS #### [facility] [address] [place] [address] Dr. Benito To HEMOGLOBIN AND HEMATOCRITon 08-08-2022 Hematocrit (Bld) [Volume fraction] 23.4 % Critically low 42.0-54.0 [facility] Comment on above: Performed By: #### H H #### [facility] [address] [place] [address] Dr. Benito To Hemoglobin (Bld) [Mass/Vol] 7.0 g/dL Critically low 14.0-18.0 [facility] Comment on above: Performed By: #### H H #### [facility] [address] [place] [address] Dr. Benito To TYPE AND SCREENon 08-08-2022 TYPE AND SCREEN Negative [facility] Comment on above: Performed By: #### P RBC, TNS #### [facility] [address] [place] [address] Dr. Benito To PRBC LEUKOREDUCEDon 07-27-20 22 ABO and Rh group Nom (Bld) Cross Match Result Compatible Unit Blood Type A Pos Unit Number [id number] Status Information Transfused Product ID Red Blood Cells Product Code [id number] Cross Match Result Compatible Unit Blood Type A Pos Unit Number [id number] Status Information Transfused Product ID Red Blood Cells Product Code [id number] [facility] Comment on above: Performed By: #### H H #### [facility] [address] [place] [address] Dr. Benito To PRBC LEUKOREDUCEDon 07-25-20 22 ABO and Rh group Nom (Bld) Cross Match Result Compatible Unit Blood Type A Pos Unit Number [id number] Status Information Transfused Product ID Red Blood Cells Product Code [id number] Cross Match Result Compatible Unit Blood Type A Pos Unit Number [id number] Status Information Transfused Product ID Red Blood Cells Product Code [id number] [facility] Comment on above: Performed By: #### P RBC, TNS #### [facility] [address] [place] [address] Dr. Benito To ABO and Rh group Nom (Bld) Cross Match Result Compatible Unit Blood Type O Neg Unit Number [id number] Status Information Transfused Product ID Red Blood Cells Product Code [id number] Cross Match Result Compatible Unit Blood Type O Pos Unit Number [id number] Status Information Transfused Product ID Red Blood Cells Product Code [id number] [facility] [facility] Comment on above: Performed By: #### T NS, PRBC #### [facility] [address] [place] [address] Dr. Benito To ABO and Rh group Nom (Bld) Cross Match Result Compatible Unit Blood Type A Pos Unit Number [id number] Status Information Transfused Product ID Red Blood Cells Product Code [id number] Cross Match Result Compatible Unit Blood Type A Pos Unit Number [id number] Status Information Transfused Product ID Red Blood Cells Product Code [id number] Normal [facility] Comment on above: Performed By: #### P RBC, TNS #### [facility] [address] [place] [address] Dr. Benito oT PRBC LEUKOREDUCED Cross Match Result Compatible Unit Blood Type A Pos Unit Number [id number] Status Information Transfused Product ID Red Blood Cells Product Code [id number] Normal [facility] Comment on above: Performed By: #### T NS, PRBC #### [facility] [address] [place] [address] Dr. Benito To PRBC LEUKOREDUCED Cross Match Result Compatible Unit Blood Type A Pos Unit Number [id number] Status Information Transfused Product ID Red Blood Cells Product Code [id number] Normal [facility] Comment on above: Performed By: #### H GBHCT #### [facility] [address] [place] [address] Dr. Benito To HEMOGLOBIN AND HEMATOCRITon 07-24-2022 Hematocrit (Bld) [Volume fraction] 22.2 % Critically low 42.0-54.0 [facility] Comment on above: Performed By: #### T NS, PRBC #### [facility] [address] [place] [address] Dr. Benito To Hemoglobin (Bld) [Mass/Vol] 7.0 g/dL Critically low 14.0-18.0 [facility] Comment on above: Performed By: #### T NS, PRBC #### [facility] [address] [place] [address] Dr. Benito To TYPE AND SCREENon 07-24-2022 TYPE AND SCREEN Negative Normal [facility] Comment on above: Performed By: #### T NS, PRBC #### [facility] [address] [place] [address] Dr. Benito To HEMOGLOBIN AND HEMATOCRITon 07-16-2022 Hematocrit (Bld) [Volume fraction] 24.9 % Critically low 42.0-54.0 [facility] Comment on above: Performed By: #### H H #### [facility] [address] [place] [address] Dr. Benito To Hemoglobin (Bld) [Mass/Vol] 7.8 g/dL Critically low 14.0-18.0 [facility] Comment on above: Performed By: #### H H #### [facility] [address] [place] [address] Dr. Benito To TYPE AND SCREENon 07-16-2022 TYPE AND SCREEN Negative Normal [facility] Comment on above: Performed By: #### H GBHCT #### [facility] [address] [place] [address] Dr. Benito To TYPE AND SCREENon 07-09-2022 TYPE AND SCREEN Negative Normal [facility] Comment on above: Performed By: #### P RBC, TNS #### [facility] [address] [place] [address] Dr. Benito To HEMOGRAM AND PLATELon 2021 Hematocrit (Bld) [Volume fraction] 22.7 % Critically low 42.0-54.0 [facility] Comment on above: Performed By: #### T NS, PRBC #### [facility] [address] [place] [address] Dr. Benito To Hemoglobin (Bld) [Mass/Vol] 7.2 g/dL Critically low 14.0-18.0 [facility] Comment on above: Performed By: #### T NS, PRBC #### [facility] [address] [place] [address] Dr. Benito To MCH (RBC) [Entitic mass] 31.3 pg Normal 25.9-34.0 [facility] Comment on above: Performed By: #### T NS, PRBC #### [facility] [address] [place] [address] Dr. Benito To MCHC (RBC) [Mass/Vol] 31.7 g/dL Normal 29.9-35.2 [facility] Comment on above: Performed By: #### T NS, PRBC #### [facility] [address] [place] [address] Dr. Benito To MCV (RBC) [Entitic vol] 98.7 fL Critically high 80.0-94.0 [facility] Comment on above: Performed By: #### T NS, PRBC #### [facility] [address] [place] [address] Dr. Benito To PLT 66 103/ul Critically low 150-450 [facility] Comment on above: Performed By: #### T NS, PRBC #### [facility] [address] [place] [address] Dr. Benito To RBC 2.30 106/ul Critically low 4.70-6.10 [facility] Comment on above: Performed By: #### T NS, PRBC #### [facility] [address] [place] [address] Dr. Benito To WBC 1.7 103/ul Critically low 4.0-11.0 [facility] Comment on above: Performed By: #### T NS, PRBC #### [facility] [address] [place] [address] Dr. Benito To HEMOGLOBIN AND HEMATOCRITon 06-25-2022 Hematocrit (Bld) [Volume fraction] 24.6 % Critically low 42.0-54.0 [facility] Comment on above: Performed By: #### T NS, PRBC #### [facility] [address] [place] [address] Dr. Benito To Hemoglobin (Bld) [Mass/Vol] 8.0 g/dL Critically low 14.0-18.0 [facility] Comment on above: Performed By: #### T NS, PRBC #### [facility] [address] [place] [address] Dr. Benito To TYPE AND SCREENon 06-25-2022 TYPE AND SCREEN Negative Normal [facility] Comment on above: Performed By: #### T NS, PRBC #### [facility] [address] [place] [address] Dr. Benito To HEMOGLOBIN AND HEMATOCRITon 06-17-2022 Hematocrit (Bld) [Volume fraction] 25.0 % Critically low 42.0-54.0 [facility] Comment on above: Performed By: #### T NS, PRBC #### [facility] [address] [place] [address] Dr. Benito To Hemoglobin (Bld) [Mass/Vol] 8.0 g/dL Critically low 14.0-18.0 [facility] Comment on above: Performed By: #### T NS, PRBC #### [facility] [address] [place] [address] Dr. Benito To TYPE AND SCREENon 06-17-2022 TYPE AND SCREEN Negative Normal [facility] Comment on above: Performed By: #### T NS, PRBC #### [facility] [address] [place] [address] Dr. Benito To HEMOGLOBIN AND HEMATOCRITon 06-11-2022 Hematocrit (Bld) [Volume fraction] 21.3 % Critically low 42.0-54.0 [facility] Comment on above: Performed By: #### T NS, PRBC #### [facility] [address] [place] [address] Dr. Benito To Hemoglobin (Bld) [Mass/Vol] 7.1 g/dL Critically low 14.0-18.0 [facility] Comment on above: Performed By: #### T NS, PRBC #### [facility] [address] [place] [address] Dr. Benito To TYPE AND SCREENon 06-11-2022 TYPE AND SCREEN Negative Normal [facility] Comment on above: Performed By: #### P RBC, TNS #### [facility] [address] [place] [address] Dr. Benito To HEMOGLOBIN AND HEMATOCRITon 06-07-2022 Hematocrit (Bld) [Volume fraction] 23.0 % Critically low 42.0-54.0 [facility] Comment on above: Performed By: #### H H #### [facility] [address] [place] [address] Dr. Benito To Hemoglobin (Bld) [Mass/Vol] 7.7 g/dL Critically low 14.0-18.0 [facility] Comment on above: Performed By: #### H H #### [facility] [address] [place] [address] Dr. Benito To PRBC LEUKOREDUCEDon 06-06-20 22 ABO and Rh group Nom (Bld) Cross Match Result Compatible Unit Blood Type A Pos Unit Number [id number] Status Information Transfused Product ID Red Blood Cells Product Code [id number] Cross Match Result Compatible Unit Blood Type O Neg Unit Number [id number] Status Information Transfused Product ID Red Blood Cells Product Code [id number] Normal [facility] Comment on above: Performed By: #### H H #### [facility] [address] [place] [address] Dr. Benito To HEMOGLOBIN AND HEMATOCRITon 06-04-2022 Hematocrit (Bld) [Volume fraction] 20.4 % Critically low 42.0-54.0 [facility] Comment on above: Performed By: #### H GBHCT #### [facility] [address] [place] [address] Dr. Benito To Hemoglobin (Bld) [Mass/Vol] 6.5 g/dL Critically low 14.0-18.0 [facility] Comment on above: Performed By: #### H GBHCT #### [facility] [address] [place] [address] Dr. Benito To TYPE AND SCREENon 06-04-2022 TYPE AND SCREEN Negative Normal [facility] Comment on above: Performed By: #### H H #### [facility] [address] [place] [address] Dr. Benito To PRBC LEUKOREDUCEDon 05-28-20 22 PRBC LEUKOREDUCED Cross Match Result Compatible Unit Blood Type A Pos Unit Number [id number] Status Information Transfused Product ID Red Blood Cells Product Code [id number] Normal [facility] Comment on above: Performed By: #### T NS, PRBC #### [facility] [address] [place] [address] Dr. Benito To Comprehensive metabolic 2000 panelon 05-27-2022 Albumin [Mass/Vol] 4.0 g/dL 3.9 - 4.9 g/dL [facility] ALP [Catalytic activity/Vol] 105 U/L 38 - 113 U/L [facility] ALT [Catalytic activity/Vol] 45 U/L 10 - 54 U/L [facility] Anion gap [Moles/Vol] 6 mmol/L Low 9 - 18 mmol/L [facility] AST [Catalytic activity/Vol] 18 U/L 14 - 40 U/L [facility] Bilirubin [Mass/Vol] 0.9 mg/dL 0.2 - 1.3 mg/dL [facility] Calcium [Mass/Vol] 8.7 mg/dL 8.5 - 10.2 mg/dL [facility] Chloride [Moles/Vol] 106 mmol/L High 97 - 105 mmol/L [facility] CO2 [Moles/Vol] 33 mmol/L High 22 - 30 mmol/L [facility] Creatinine [Mass/Vol] 1.64 mg/dL High 0.73 - 1.22 mg /dL [facility] Estimated Glomerular Filtration Rate 41 mL/min/1.73m Low >=60 mL/min/1.73m [facility] Glucose [Mass/Vol] 130 mg/dL High 74 - 99 mg/dL [facility] Potassium [Moles/Vol] 3.5 mmol/L Low 3.7 - 5.1 mmol /L [facility] Protein [Mass/Vol] 6.4 g/dL 6.3 - 8.0 g/dL Cl [facility] Sodium [Moles/Vol] 145 mmol/L High 136 - 144 mmol/L [facility] Urea nitrogen [Mass/Vol] 25 mg/dL High 9 - 24 mg/dL [facility] LD LACTATE DEHYDROon 022 LDH [Catalytic activity/Vol] 209 U/L 135 - 225 U/L [facility] HEMOGLOBIN AND HEMATOCRITon 05-23-2022 Hematocrit (Bld) [Volume fraction] 22.7 % Critically low 42.0-54.0 [facility] Comment on above: Performed By: #### T NS, PRBC #### [facility] [address] [address] [address] Benito To Hemoglobin (Bld) [Mass/Vol] 7.3 g/dL Critically low 14.0-18.0 [facility] Comment on above: Performed By: #### T NS, PRBC #### [facility] [address] [address] [address] Benito To TYPE AND SCREENon 05-23-2022 TYPE AND SCREEN Negative Normal [facility] Comment on above: Performed By: #### T NS, PRBC #### [facility] [address] [place] [address] Dr. Benito To PRBC LEUKOREDUCEDon 05-14-20 22 ABO and Rh group Nom (Bld) Cross Match Result Compatible Unit Blood Type A Neg Unit Number [id number] Status Information Transfused Product ID Red Blood Cells Product Code [id number] Cross Match Result Compatible Unit Blood Type A Neg Unit Number [id number] Status Information Transfused Product ID Red Blood Cells Product Code [id number] Normal [facility] Comment on above: Performed By: #### T NS, PRBC #### [facility] [address] [place] [address] Dr. Benito To PRBC LEUKOREDUCEDon 05-08-20 22 ABO and Rh group Nom (Bld) Cross Match Result Compatible Unit Blood Type A Pos Unit Number [id number] Status Information Transfused Product ID Red Blood Cells Product Code [id number] Cross Match Result Compatible Unit Blood Type A Pos Unit Number [id number] Status Information Transfused Product ID Red Blood Cells Product Code [id number] Normal [facility] Comment on above: Performed By: #### H H #### [facility] [address] [place] [address] Dr. Benito To HEMOGLOBIN AND HEMATOCRITon 05-07-2022 Hematocrit (Bld) [Volume fraction] 24.6 % Critically low 42.0-54.0 [facility] Comment on above: Performed By: #### T NS, PRBC #### [facility] [address] [place] [address] Dr. Benito To Hemoglobin (Bld) [Mass/Vol] 7.6 g/dL Critically low 14.0-18.0 [facility] Comment on above: Performed By: #### T NS, PRBC #### [facility] [address] [place] [address] Dr. Benito To TYPE AND SCREENon 05-07-2022 TYPE AND SCREEN Negative Normal [facility] Comment on above: Performed By: #### T NS, PRBC #### [facility] [address] [address] [address] Benito To FLOW CYTOMETRY BONE MARROW R EFLEXon 04-27-2022 Case Report Flow Cytometry Case: [id number] Authorizing Provider: Asher Hummel MD Collected: 04/25/2022 08:35 AM Ordering Location: Hematology/Oncology Received: 04/26/2022 08:07 AM Pathologist: Josie Robison MD Specimen: Bone Marrow [facility] Gross Description A. Bone Marrow RECEIVED 1 ML BONE MARROW IN HEPARIN [facility] Interpretation Specimen type: Bone marrow aspirate Viability: [...] developed and its performance characteristics determined by [facility] [place] [facility] It has not been cleared or approved by the FDA. -[facility] is regulated under CLIA as qualified to perform high-complexity testing. This test is used for clinical purposes. It should not be regarded as investigational or for research purposes. DSB/MS 04/26/2022 [facility] CBC W Auto Differential pane l (Bld)on 04-26-2022 Abs Baso 0.04 k/uL <0.11 k/uL [facility] Abs [place] 0.36 k/uL <0.87 k/uL [facility] Absolute nRBC <0.01 k/uL [facility] Anisocytosis Ql (Bld) Present [facility] Basophils/100 WBC (Bld) 1.8 % [facility] Dacrocytes LM Ql (Bld) Few [facility] Differential cell count method Nom (Bld) Manual [facility] Eosinophils (Bld) [#/Vol] 0.06 10*3/uL <0.46 k/uL [facility] Eosinophils/100 WBC (Bld) 2.7 % [facility] Erythrocyte distribution width (RBC) [Ratio] 25.2 % High 11.5 - 15.0 % [facility] Giant platelets LM Ql (Bld) Occasional [facility] Hematocrit (Bld) [Volume fraction] 28.2 % Low 39.0 - 51.0 % [facility] Hemoglobin (Bld) [Mass/Vol] 9.0 g/dL Low 13.0 - 17.0 g/dL [facility] Lymphocytes (Bld) [#/Vol] 0.82 10*3/uL Low 1.00 - 4.00 k/uL [facility] Lymphocytes/100 WBC (Bld) 34.8 % [facility] MCH (RBC) [Entitic mass] 32.0 pg 26.0 - 34.0 pg [facility] MCHC (RBC) [Mass/Vol] 31.9 g/dL 30.5 - 36.0 g/ dL [facility] MCV (RBC) [Entitic vol] 100.4 fL High 80.0 - 100.0 fL [facility] Monocytes/100 WBC (Bld) 15.2 % [facility] Neutrophils (Bld) [#/Vol] 1.07 10*3/uL Low 1.45 - 7.50 k/uL [facility] Neutrophils/100 WBC (Bld) 45.5 % [facility] Nucleated RBC/100 WBC (Bld) [Ratio] 0.0 /100 WBC [facility] Ovalocytes LM Ql (Bld) Few [facility] Platelet Estimate Decreased [facility] Platelet mean volume (Bld) [Entitic vol] [facility] Platelets (Bld) [#/Vol] 77 10*3/uL Low 150 - 400 k/uL [facility] Polychromasia LM Ql (Bld) Slight [facility] RBC (Bld) [#/Vol] 2.81 10*6/uL Low 4.20 - 6.00 m/uL [facility] RBC Fragments Few Abnormal None Seen [facility] Red Cell Morph Reviewed: see result s of individual morphologies [facility] Variant lymphocytes/100 WBC (Bld) 0.0 % [facility] WBC (Bld) [#/Vol] 2.35 10*3/uL Low 3.70 - 11.00 k/u L [facility] FLOW CYTOMETRY BONE MARROW H OLD (BMHOLD)on 04-26-2022 Flow Cytometry Order Status See Results in chart under F case ID [facility] Comprehensive metabolic 2000 panelon 04-25-2022 Albumin [Mass/Vol] 4.0 g/dL 3.9 - 4.9 g/dL [facility] ALP [Catalytic activity/Vol] 83 U/L 38 - 113 U/L [facility] ALT [Catalytic activity/Vol] 31 U/L 10 - 54 U/L [facility] Anion gap [Moles/Vol] 10 mmol/L 9 - 18 mmol/L [facility] AST [Catalytic activity/Vol] 17 U/L 14 - 40 U/L [facility] Bilirubin [Mass/Vol] 1.0 mg/dL 0.2 - 1.3 mg/dL [facility] Calcium [Mass/Vol] 8.9 mg/dL 8.5 - 10.2 mg/dL [facility] Chloride [Moles/Vol] 104 mmol/L 97 - 105 mmol/L [facility] CO2 [Moles/Vol] 29 mmol/L 22 - 30 mmol/L [facility] Creatinine [Mass/Vol] 1.79 mg/dL High 0.73 - 1.22 mg /dL [facility] Estimated Glomerular Filtration Rate 37 mL/min/1.73m Low >=60 mL/min/1.73m [facility] Glucose [Mass/Vol] 127 mg/dL High 74 - 99 mg/dL [facility] Potassium [Moles/Vol] 4.3 mmol/L 3.7 - 5.1 mmol /L [facility] Protein [Mass/Vol] 6.1 g/dL Low 6.3 - 8.0 g/dL [facility] Sodium [Moles/Vol] 143 mmol/L 136 - 144 mmol/L [facility] Urea nitrogen [Mass/Vol] 29 mg/dL High 9 - 24 mg/dL [facility] LD LACTATE DEHYDROon 022 LDH [Catalytic activity/Vol] 234 U/L High 135 - 225 U/L [facility] HEMOGLOBIN AND HEMATOCRITon 04-22-2022 Hematocrit (Bld) [Volume fraction] 23.1 % Critically low 42.0-54.0 [facility] Comment on above: Performed By: #### H GBHCT #### [facility] [address] [place] [address] Dr. Benito To Hemoglobin (Bld) [Mass/Vol] 7.2 g/dL Critically low 14.0-18.0 [facility] Comment on above: Performed By: #### H GBHCT #### [facility] [address] [place] [address] Dr. Benito To TYPE AND SCREENon 04-22-2022 TYPE AND SCREEN Negative Normal [facility] Comment on above: Performed By: #### H H #### [facility] [address] [place] [address] Dr. Benito To PRBC LEUKOREDUCEDon 04-07-20 ABO and Rh group Nom (Bld) Cross Match Result Compatible Unit Blood Type A Pos Unit Number [id number] Status Information Transfused Product ID Red Blood Cells Product Code [id number] Cross Match Result Compatible Unit Blood Type A Pos Unit Number [id number] Status Information Transfused Product ID Red Blood Cells Product Code [id number] Normal [facility] Comment on above: Performed By: #### H H #### [facility] [address] [place] [address] Dr. Benito To HEMOGLOBIN AND HEMATOCRITon 04-03-2022 Hematocrit (Bld) [Volume fraction] 21.8 % Critically low 42.0-54.0 [facility] Comment on above: Performed By: #### H GBHCT #### [facility] [address] [place] [address] Dr. Benito To Hemoglobin (Bld) [Mass/Vol] 6.9 g/dL Critically low 14.0-18.0 [facility] Comment on above: Performed By: #### H GBHCT #### [facility] [address] [place] [address] Dr. Benito To TYPE AND SCREENon 04-03-2022 TYPE AND SCREEN Negative Normal [facility] Comment on above: Performed By: #### H H #### [facility] [address] [place] [address] Dr. Benito To PRBC LEUKOREDUCEDon 03-12-20 ABO and Rh group Nom (Bld) Cross Match Result Compatible Unit Blood Type A Pos Unit Number [id number] Status Information Transfused Product ID Red Blood Cells Product Code [id number] Cross Match Result Compatible Unit Blood Type A Pos Unit Number [id number] Status Information Transfused Product ID Red Blood Cells Product Code [id number] Normal [facility] Comment on above: Performed By: #### T NS, PRBC #### [facility] [address] [place] [address] Dr. Benito To HEMOGRAM AND PLATELon 2021 Hematocrit (Bld) [Volume fraction] 23.0 % Critically low 42.0-54.0 [facility] Comment on above: Performed By: #### T NS, PRBC #### [facility] [address] [place] [address] Dr. Benito To Hemoglobin (Bld) [Mass/Vol] 7.1 g/dL Critically low 14.0-18.0 [facility] Comment on above: Performed By: #### T NS, PRBC #### [facility] [address] [place] [address] Dr. Benito To MCH (RBC) [Entitic mass] 33.6 pg Normal 25.9-34.0 [facility] Comment on above: Performed By: #### T NS, PRBC #### [facility] [address] [place] [address] Dr. Benito To MCHC (RBC) [Mass/Vol] 30.9 g/dL Normal 29.9-35.2 [facility] Comment on above: Performed By: #### T NS, PRBC #### [facility] [address] [place] [address] Dr. Benito To MCV (RBC) [Entitic vol] 109.0 fL Critically high 80.0-94.0 [facility] Comment on above: Performed By: #### T NS, PRBC #### [facility] [address] [place] [address] Dr. Benito To PLT 108 103/ul Critically low 150-450 [facility] Comment on above: Performed By: #### T NS, PRBC #### [facility] [address] [address] [address] Benito To RBC 2.11 106/ul Critically low 4.70-6.10 [facility] Comment on above: Performed By: #### T NS, PRBC #### [facility] [address] [place] [address] Dr. Benito To WBC 2.0 103/ul Critically low 4.0-11.0 [facility] Comment on above: Performed By: #### T NS, PRBC #### [facility] [address] [place] [address] Dr. Benito To TYPE AND SCREENon 03-11-2022 TYPE AND SCREEN Negative Normal [facility] Comment on above: Performed By: #### T NS, PRBC #### [facility] [address] [place] [address] Dr. Benito To PRBC LEUKOREDUCEDon 03-05-20 ABO and Rh group Nom (Bld) Cross Match Result Compatible Unit Blood Type A Pos Unit Number [id number] Status Information Transfused Product ID Red Blood Cells Product Code [id number] Cross Match Result Compatible Unit Blood Type A Pos Unit Number [id number] Status Information Transfused Product ID Red Blood Cells Product Code [id number] Normal [facility] Comment on above: Performed By: #### P RBC, TNS #### [facility] [address] [place] [address] Dr. Benito To HEMOGLOBIN AND HEMATOCRITon 02-28-2022 Hematocrit (Bld) [Volume fraction] 20.3 % Critically low 42.0-54.0 [facility] Comment on above: Performed By: #### H H #### [facility] [address] [address] [address] Benito To Hemoglobin (Bld) [Mass/Vol] 6.7 g/dL Critically low 14.0-18.0 [facility] Comment on above: Performed By: #### H H #### [facility] [id number] Benito To TYPE AND SCREENon 02-28-2022 TYPE AND SCREEN Negative Normal [facility] Comment on above: Performed By: #### P RBC, TNS #### [facility] [address] [address] [address] Benito To PRBC LEUKOREDUCEDon 02-18-20 ABO and Rh group Nom (Bld) Cross Match Result Compatible Unit Blood Type A Pos Unit Number [id number] Status Information Transfused Product ID Red Blood Cells Product Code [id number] Cross Match Result Compatible Unit Blood Type A Pos Unit Number [id number] Status Information Transfused Product ID Red Blood Cells Product Code [id number] Normal [facility] Comment on above: Performed By: #### P RBC, TNS #### [facility] [address] [place] [address] Dr. Benito To Comprehensive metabolic 2000 panelon 02-15-2022 Albumin [Mass/Vol] 3.9 g/dL 3.9 - 4.9 g/dL [facility] ALP [Catalytic activity/Vol] 64 U/L 38 - 113 U/L [facility] ALT [Catalytic activity/Vol] 26 U/L 10 - 54 U/L [facility] Anion gap [Moles/Vol] 13 mmol/L 9 - 18 mmol/L [facility] AST [Catalytic activity/Vol] 11 U/L Low 14 - 40 U/L [facility] Bilirubin [Mass/Vol] 0.4 mg/dL 0.2 - 1.3 mg/dL [facility] Calcium [Mass/Vol] 8.9 mg/dL 8.5 - 10.2 mg/dL [facility] Chloride [Moles/Vol] 102 mmol/L 97 - 105 mmol/L [facility] CO2 [Moles/Vol] 26 mmol/L 22 - 30 mmol/L [facility] Creatinine [Mass/Vol] 2.24 mg/dL High 0.73 - 1.22 mg /dL [facility] Estimated Glomerular Filtration Rate 28 mL/min/1.73m Low >=60 mL/min/1.73m [facility] Glucose [Mass/Vol] 206 mg/dL High 74 - 99 mg/dL [facility] Potassium [Moles/Vol] 3.7 mmol/L 3.7 - 5.1 mmol /L [facility] Protein [Mass/Vol] 6.0 g/dL Low 6.3 - 8.0 g/dL [facility] Sodium [Moles/Vol] 141 mmol/L 136 - 144 mmol/L [facility] Urea nitrogen [Mass/Vol] 52 mg/dL High 9 - 24 mg/dL [facility] LD LACTATE DEHYDROon 022 LDH [Catalytic activity/Vol] 250 U/L High 135 - 225 U/L [facility] HEMOGLOBIN AND HEMATOCRITon 02-04-2022 Hematocrit (Bld) [Volume fraction] 21.1 % Critically low 42.0-54.0 [facility] Comment on above: Performed By: #### T NS, PRBC #### [facility] [address] [place] [address] Dr. Benito To Hemoglobin (Bld) [Mass/Vol] 6.8 g/dL Critically low 14.0-18.0 [facility] Comment on above: Performed By: #### T NS, PRBC #### [facility] [address] [place] [address] Dr. Benito To TYPE AND SCREENon 02-04-2022 TYPE AND SCREEN Negative Normal [facility] Comment on above: Performed By: #### P RBC, TNS #### [facility] [address] [place] [address] Dr. Benito To PRBC LEUKOREDUCEDon 01-25-20 PRBC LEUKOREDUCED Cross Match Result Compatible Unit Blood Type A Neg Unit Number [id number] Status Information Transfused Product ID Red Blood Cells Product Code [id number] Normal [facility] Comment on above: Performed By: #### T NS, PRBC #### [facility] [address] [place] [address] Dr. Yilan To Comprehensive metabolic 2000 panelon 01-21-2022 Albumin [Mass/Vol] 3.9 g/dL 3.9 - 4.9 g/dL [facility] ALP [Catalytic activity/Vol] 62 U/L 38 - 113 U/L [facility] ALT [Catalytic activity/Vol] 40 U/L 10 - 54 U/L [facility] Anion gap [Moles/Vol] 10 mmol/L 9 - 18 mmol/L [facility] AST [Catalytic activity/Vol] 19 U/L 14 - 40 U/L [facility] Bilirubin [Mass/Vol] 0.8 mg/dL 0.2 - 1.3 mg/dL [facility] Calcium [Mass/Vol] 8.8 mg/dL 8.5 - 10.2 mg/dL [facility] Chloride [Moles/Vol] 101 mmol/L 97 - 105 mmol/L [facility] CO2 [Moles/Vol] 31 mmol/L High 22 - 30 mmol/L [facility] Creatinine [Mass/Vol] 1.95 mg/dL High 0.73 - 1.22 mg /dL [facility] Estimated Glomerular Filtration Rate 34 mL/min/1.73m Low >=60 mL/min/1.73m [facility] Glucose [Mass/Vol] 231 mg/dL High 74 - 99 mg/dL [facility] Potassium [Moles/Vol] 3.6 mmol/L Low 3.7 - 5.1 mmol /L [facility] Protein [Mass/Vol] 6.1 g/dL Low 6.3 - 8.0 g/dL [facility] Sodium [Moles/Vol] 142 mmol/L 136 - 144 mmol/L [facility] Urea nitrogen [Mass/Vol] 39 mg/dL High 9 - 24 mg/dL [facility] metabolic 2000 panelon 01-18-2022 Albumin [Mass/Vol] 4.1 g/dL 3.9 - 4.9 g/dL [facility] ALP [Catalytic activity/Vol] 62 U/L 38 - 113 U/L [facility] ALT [Catalytic activity/Vol] 24 U/L 10 - 54 U/L [facility] Anion gap [Moles/Vol] 10 mmol/L 9 - 18 mmol/L [facility] AST [Catalytic activity/Vol] 12 U/L Low 14 - 40 U/L [facility] Bilirubin [Mass/Vol] 0.6 mg/dL 0.2 - 1.3 mg/dL [facility] Calcium [Mass/Vol] 9.4 mg/dL 8.5 - 10.2 mg/dL [facility] Chloride [Moles/Vol] 103 mmol/L 97 - 105 mmol/L [facility] CO2 [Moles/Vol] 30 mmol/L 22 - 30 mmol/L [facility] Creatinine [Mass/Vol] 2.14 mg/dL High 0.73 - 1.22 mg /dL [facility] Estimated Glomerular Filtration Rate 30 mL/min/1.73m Low >=60 mL/min/1.73m [facility] Glucose [Mass/Vol] 182 mg/dL High 74 - 99 mg/dL [facility] Potassium [Moles/Vol] 3.8 mmol/L 3.7 - 5.1 mmol /L [facility] Protein [Mass/Vol] 6.4 g/dL 6.3 - 8.0 g/dL [facility] Sodium [Moles/Vol] 143 mmol/L 136 - 144 mmol/L [facility] Urea nitrogen [Mass/Vol] 45 mg/dL High 9 - 24 mg/dL [facility] HEMOGLOBIN AND HEMATOCRITon 01-15-2022 Hematocrit (Bld) [Volume fraction] 24.9 % Critically low 42.0-54.0 [facility] Comment on above: Performed By: #### T NS, PRBC #### [facility] [address] [place] [address] Dr. Benito To Hemoglobin (Bld) [Mass/Vol] 7.7 g/dL Critically low 14.0-18.0 [facility] Comment on above: Performed By: #### T NS, PRBC #### [facility] [address] [address] [address] Benito To TYPE AND SCREENon 01-15-2022 TYPE AND SCREEN Negative Normal [facility] Comment on above: Performed By: #### T NS, PRBC #### [facility] [address] [address] [address] Benito To Cardiovascular Lab Reporton 11-29-2021 Cardiovascular Lab Report [facility] Patient Name: [facility] Sandip Swain MR #: [id number] Department of Physician: Crut Lee MD Division of Service Date: 11/21/2021 Cardiology Birthdate: 1940 Adult Cardiovascular Room #: 4AB [id number] [place] [address] [place] [address] Cardiovascular Laboratory Report PROCEDURES PERFORMED: Right heart [...] 2.50. INDICATIONS: Heart failure. Electronically Signed by: Curt Lee MD 12/20/2021 08:10 P Curt Lee MD Date Dict: 11/29/2021/04:41 P/Curt Lee MD Date Trans: 11/29/2021 08:03 P/simon [id number] cc: Flash Pearl M.D. [address] [place] [address] A [facility] [id number] Normal [facility] POC GLUCOSE LABon 11-25-2021 Glucose [Mass/Vol] 210 mg/dL High 70-100 [facility] Comment on above: Performed By: #### 8 5499 #### [facility] [address] [place] [address], [facility] Glucose [Mass/Vol] 203 mg/dL High 70-100 [facility] Comment on above: Performed By: #### 8 5499 #### [facility] [address] [place] [address], [facility] Glucose [Mass/Vol] 202 mg/dL High 70-100 [facility] Comment on above: Performed By: #### 8 5499 #### [facility] [address] BNP (B-TYPE NATRIURETIC PEPT IZAIAH)on 11-24-2021 Natriuretic peptide B (Bld) [Mass/Vol] 685 pg/mL High 0-100 [facility] Comment on above: Order Comment: No: D o not add to previous draw Result Comment: Give n the appropriate clinical setting a BNP result of >100 pg/mL indicates congestive heart failure. Performed By: #### 8 5123 ####[facility] [place] [address], [facility] CBC W/DIFFon 11-24-2021 ABS NEUTROPHILS 2.5 10*3/uL Normal 1.6-7.6 [facility] Comment on above: Order Comment: RIGHT BICEP Performed By: #### 3 0313 #### [facility] [address] [place] [address], [facility] ANISO Moderate Normal [facility] Comment on above: Order Comment: RIGHT BICEP Performed By: #### 3 0313 #### [facility] [address] [place] [address], [facility] Basophils (Bld) [#/Vol] 0.0 10*3/uL Normal 0.0-0.2 [facility] Comment on above: Order Comment: RIGHT BICEP Performed By: #### 3 0313 #### [facility] [address] [place] [id number], [facility] Basophils/100 WBC (Bld) 0.9 % Normal 0.0-1.0 [facility] Comment on above: Order Comment: RIGHT BICEP Performed By: #### 3 3 #### [facility] [address] [place] [address], [facility] Eosinophils (Bld) [#/Vol] 0.0 10*3/uL Normal 0.0-0.5 [facility] Comment on above: Order Comment: RIGHT BICEP Performed By: #### 3 0313 #### [facility] [address] [place] [id number], [facility] Eosinophils/100 WBC (Bld) 0.0 % Normal 0.0-6.0 [facility] Comment on above: Order Comment: RIGHT BICEP Performed By: #### 3 3 #### [facility] [address] Erythrocyte distribution width (RBC) [Ratio] 22.0 % High 11.5-15.0 [facility] Comment on above: Order Comment: RIGHT BICEP Performed By: #### 3 0313 #### [facility] [address] [place] [address], [facility] GIANT PLATELETS Present Normal [facility] Comment on above: Order Comment: RIGHT BICEP Performed By: #### 3 0313 #### [facility] [address] [place] [id number], [facility] Hematocrit (Bld) [Volume fraction] 27.9 % Low 39.0-50.0 [facility] Comment on above: Order Comment: RIGHT BICEP Performed By: #### 3 3 #### [facility] [address] [place] [id number], [facility] Hemoglobin (Bld) [Mass/Vol] 8.8 g/dL Low 13.0-17.0 [facility] Comment on above: Order Comment: RIGHT BICEP Performed By: #### 3 0313 #### [facility] [address] [place] [address], [facility] IMM PLATELET FRAC 14.2 % High 0.8-6.3 [facility] Comment on above: Order Comment: RIGHT BICEP Performed By: #### 3 0313 #### [facility] [address] [place] [id number], [facility] Lymphocytes (Bld) [#/Vol] 0.5 10*3/uL Low 1.2-4.0 [facility] Comment on above: Order Comment: RIGHT BICEP Performed By: #### 3 0313 #### [facility] [address] [place] [id number], [facility] Lymphocytes/100 WBC (Bld) 14.2 % Low 20.0-45.0 [facility] Comment on above: Order Comment: RIGHT BICEP Performed By: #### 3 0313 #### [facility] [address] [place] [address], [facility] MACRO Slight Normal [facility] Comment on above: Order Comment: RIGHT BICEP Performed By: #### 3 0313 #### [facility] [address] [place] [address], [facility] MCH (RBC) [Entitic mass] 34.6 pg High 27.0-33.0 [facility] Comment on above: Order Comment: RIGHT BICEP Performed By: #### 3 0313 #### [facility] [address] [place] [id number], [facility] MCHC (RBC) [Mass/Vol] 31.5 g/dL Low 32.0-35.0 [facility] Comment on above: Order Comment: RIGHT BICEP Performed By: #### 3 0313 #### [facility] [address] [place] [address], [facility] MCV (RBC) [Entitic vol] 109.8 fL High 82.0-98.0 [facility] Comment on above: Order Comment: RIGHT BICEP Performed By: #### 3 0313 #### [facility] [address] [place] [address], [facility] Monocytes (Bld) [#/Vol] 0.4 10*3/uL Normal 0.1-1.0 [facility] Comment on above: Order Comment: RIGHT BICEP Performed By: #### 3 0313 #### [facility] [address] [place] [address], [place] MONOS 11.3 % Normal 5.0-12.0 [facility] Comment on above: Order Comment: RIGHT BICEP Performed By: #### 3 0313 #### [facility] [address] [place] [address], [facility] MYELOS 6.6 % High 0.0-0.0 [facility] Comment on above: Order Comment: RIGHT BICEP Performed By: #### 3 0313 #### [facility] [address] [place] [address], [facility] Neutrophils/100 WBC (Bld) 67.0 % Normal 40.0-72.0 [facility] Comment on above: Order Comment: RIGHT BICEP Performed By: #### 3 0313 #### [facility] [address] [place] [address], [facility] Nucleated RBC/100 WBC (Bld) [Ratio] 1 % High 0-0 [facility] Comment on above: Order Comment: RIGHT BICEP Performed By: #### 3 0313 #### [facility] [address] [place] [address], [place] PLAT CNT 186 10*3/uL Normal 150-400 [facility] Comment on above: Order Comment: RIGHT BICEP Performed By: #### 3 0313 #### [facility] [address] [place] [address], [place] POIK Slight Normal [facility] Comment on above: Order Comment: RIGHT BICEP Performed By: #### 3 0313 #### [facility] [address] [place] [address], [facility] RBC (Bld) [#/Vol] 2.54 10*6/uL Low 4.20-5.70 [facility] Comment on above: Order Comment: RIGHT BICEP Performed By: #### 3 0313 #### [facility] [address] [place] [address], [facility] WBC (Bld) [#/Vol] 3.77 10*3/uL Low 4.00-10.60 [facility] Comment on above: Order Comment: RIGHT BICEP Performed By: #### 3 0313 #### [facility] [address] [place] [address], [facility] COMP METABOLIC PANELon 11-24 Albumin [Mass/Vol] 3.6 g/dL Normal 3.5-5.7 [facility] Comment on above: Order Comment: Evalu ate for Cardiomegaly Performed By: #### 0 0121, 65102, 61692 ####[facility] [place] [address], [facility] ALKALINE PHOSPH 44 IU/L Normal 34-104 [facility] Comment on above: Order Comment: Evalu ate for Cardiomegaly Performed By: #### 0 0121, 51876, 39537 ####[facility] [place] [address], [facility] ALT [Catalytic activity/Vol] 36 U/L Normal 7-52 [facility] Comment on above: Order Comment: Evalu ate for Cardiomegaly Performed By: #### 0 0121, 90779, 88870 ####[facility] [place] [address], [place] AST [Catalytic activity/Vol] 23 U/L Normal 13-39 [facility] Comment on above: Order Comment: Evalu ate for Cardiomegaly Performed By: #### 0 0121, 40939, 39582 ####[facility] [place] [address], [facility] Bilirubin [Mass/Vol] 0.8 mg/dL Normal 0.3-1.0 [facility] Comment on above: Order Comment: Evalu ate for Cardiomegaly Performed By: #### 0 0121, 45634, 71349 ####[facility] [place] [address], [facility] Calcium [Mass/Vol] 8.8 mg/dL Normal 8.6-10.3 [facility] Comment on above: Order Comment: Evalu ate for Cardiomegaly Performed By: #### 0 0121, 09296, 77123 ####[facility] [place] [address], [place] Chloride [Moles/Vol] 103 mmol/L Normal 98-107 [facility] Comment on above: Order Comment: Evalu ate for Cardiomegaly Performed By: #### 0 0121, 38736, 20334 ####[facility] [place] [address], [facility] CO2 [Moles/Vol] 30 mmol/L Normal 21-31 [facility] Comment on above: Order Comment: Evalu ate for Cardiomegaly Performed By: #### 0 0121, 37584, 57736 ####[facility] [place] [address], [place] Creatinine [Mass/Vol] 1.54 mg/dL High 0.70-1.30 [facility] Comment on above: Order Comment: Evalu ate for Cardiomegaly Performed By: #### 0 0121, 52746, 71246 ####[facility] [place] [address], [facility] eGFR- 53 ml/min/1.73sq m Abnormal >60 [facility] Comment on above: Order Comment: Evalu ate for Cardiomegaly Result Comment: Calc ulation may not be valid for patients over 70 years Performed By: #### 0 0121, 27323, 30350 ####[facility] [place] [address], [facility] eGFR- non- 43 ml/min/1.73sq m Abnormal >60 [facility] Comment on above: Order Comment: Evalu ate for Cardiomegaly Result Comment: Calc ulation may not be valid for patients over 70 years Performed By: #### 0 0121, 94071, 86763 ####[facility] [place] [address], [facility] Glucose [Mass/Vol] 173 mg/dL High 70-100 [facility] Comment on above: Order Comment: Evalu ate for Cardiomegaly Performed By: #### 0 0121, 45748, 81698 ####[facility] [place] [address], [facility] Potassium [Moles/Vol] 3.5 mmol/L Normal 3.5-5.1 [facility] Comment on above: Order Comment: Evalu ate for Cardiomegaly Performed By: #### 0 0121, 00010, 69123 ####[facility] [facility] [place] [place] [address], [facility] Protein [Mass/Vol] 6.2 g/dL Normal 6.0-8.3 [facility] Comment on above: Order Comment: Evalu ate for Cardiomegaly Performed By: #### 0 0121, 58137, 56685 ####[facility] [place] [address], [place] Sodium [Moles/Vol] 143 mmol/L Normal 136-145 [facility] Comment on above: Order Comment: Evalu ate for Cardiomegaly Performed By: #### 0 0121, 81125, 24245 ####[facility] Urea nitrogen [Mass/Vol] 41 mg/dL High 7-25 [facility] Comment on above: Order Comment: Evalu ate for Cardiomegaly Performed By: #### 0 0121, 36369, 94659 ####[facility] [place] [address], [facility] LIPID PROFILEon 11-24-2021 Cholesterol [Mass/Vol] 69 mg/dL Low 120-200 [facility] Comment on above: Result Comment: CHOL ESTEROL REFERENCE RANGE: 20 YEARS AND OLDER CARDIOVASCULAR RISK Less than 200 mg/dl Low Risk 200 to 239 mg/dl Borderline Risk 240 mg/dl and greater High Risk Performed By: #### 0 0121, 83820, 55322 ####[facility] [place] [address], [facility] Cholesterol in HDL [Mass/Vol] 21 mg/dL Low 23-92 [facility] Comment on above: Result Comment: Slig ht variation in normal range could be due to gender and/or age. HDL CHOLESTEROL REFERENCE RANGE: 20 years and older Cardiovascular Risk > or =60 mg/dL Desirable 40 TO 59 mg/dL Low Risk <40 mg/dL High Risk Performed By: #### 0 0121, 84224, 99277 ####[facility] [place] [address], [facility] Cholesterol in LDL [Mass/Vol] 21 mg/dL Normal 0-130 [facility] Comment on above: Result Comment: LDL IS A CALCULATION LDL IS ONLY VALID IF THE TRIG IS LESS THAN 400. Performed By: #### 0 0121, 13176, 11716 ####[facility] [place] [address], [facility] Cholesterol.total/Cho lesterol in HDL [Mass ratio] 3.3 {ratio} Normal .0-4.5 [facility] Comment on above: Performed By: #### 0 0121, 31931, 81802 ####[facility] [place] [address], [facility] NON-HDL CHOLESTEROL 48 mg/dL Normal [facility] Comment on above: Performed By: #### 0 0121, 07287, 33162 ####[facility] [facility] [place] [place] [address], [facility] Triglyceride [Mass/Vol] 134 mg/dL Normal 40-149 [facility] Comment on above: Result Comment: TRIG LYCERIDE REFERENCE RANGE: 20 YEARS AND OLDER CARDIOVASCULAR RISK LESS THAN 150 mg/dl LOW RISK 150 TO 199 mg/dl BORDERLINE RISK 200 mg/dl AND GREATER HIGH RISK Performed By: #### 0 0121, 24261, 39193 ####[facility] [facility] [place] [place] [address], [facility] VLDL CHOL 27 mg/dL Normal 0-40 [facility] Comment on above: Performed By: #### 0 0121, 43064, 25126 ####[facility] [facility] [place] [address], [facility] MAGNESIUM BLOODon 11-24-2021 Magnesium [Mass/Vol] 2.2 mg/dL Normal 1.9-2.7 [facility] Comment on above: Order Comment: Evalu ate for Cardiomegaly Performed By: #### 0 0121, 73965, 94388 ####[facility] [facility] [place] [place] [address], [facility] POC GLUCOSE LABon 11-24-2021 Glucose [Mass/Vol] 194 mg/dL High 70-100 [facility] Comment on above: Performed By: #### 3 0313 #### [facility] [address] [place] [address], [place] Glucose [Mass/Vol] 222 mg/dL High 70-100 [facility] Comment on above: Performed By: #### 3 7344 #### [facility] [address] [place] [address], [place] Glucose [Mass/Vol] 193 mg/dL High 70-100 [facility] Comment on above: Performed By: #### 8 5499 #### [facility] [address] [place] [address], [place] Glucose [Mass/Vol] 196 mg/dL High 70-100 [facility] Comment on above: Performed By: #### 3 2044 #### [facility] [address] [place] [address], [place] COMP METABOLIC PANELon 11-23 Albumin [Mass/Vol] 3.3 g/dL Low 3.5-5.7 [facility] Comment on above: Order Comment: No: D o not add to previous draw Performed By: #### 3 0477 #### [facility] [address] [place] [address], [place] ALKALINE PHOSPH 40 IU/L Normal 34-104 [facility] Comment on above: Order Comment: No: D o not add to previous draw Performed By: #### 3 0477 #### [facility] [address] [place] [address], [place] ALT [Catalytic activity/Vol] 34 U/L Normal 7-52 [facility] Comment on above: Order Comment: No: D o not add to previous draw Performed By: #### 3 0477 #### [facility] [address] [place] [address], [place] AST [Catalytic activity/Vol] 21 U/L Normal 13-39 [facility] Comment on above: Order Comment: No: D o not add to previous draw Performed By: #### 3 0477 #### [facility] [address] [place] [address], [place] Bilirubin [Mass/Vol] 0.8 mg/dL Normal 0.3-1.0 [facility] Comment on above: Order Comment: No: D o not add to previous draw Performed By: #### 3 0477 #### [facility] [address] [place] [id number], [facility] Calcium [Mass/Vol] 8.6 mg/dL Normal 8.6-10.3 [facility] Comment on above: Order Comment: No: D o not add to previous draw Performed By: #### 3 0477 #### [facility] [address] [place] [address], [place] Chloride [Moles/Vol] 103 mmol/L Normal 98-107 [facility] Comment on above: Order Comment: No: D o not add to previous draw Performed By: #### 3 0477 #### [facility] [address] [place] [address], [place] CO2 [Moles/Vol] 30 mmol/L Normal 21-31 [facility] Comment on above: Order Comment: No: D o not add to previous draw Performed By: #### 3 0477 #### [facility] [address] [place] [address], [place] Creatinine [Mass/Vol] 1.88 mg/dL High 0.70-1.30 [facility] Comment on above: Order Comment: No: D o not add to previous draw Performed By: #### 3 0477 #### [facility] [address] [place] [address], [facility] eGFR- 42 ml/min/1.73sq m Abnormal >60 [facility] Comment on above: Order Comment: No: D o not add to previous draw Result Comment: Calc ulation may not be valid for patients over 70 years Performed By: #### 3 0477 #### [facility] [address] [place] [address], [place] eGFR- non- 35 ml/min/1.73sq m Abnormal >60 [facility] Comment on above: Order Comment: No: D o not add to previous draw Result Comment: Calc ulation may not be valid for patients over 70 years Performed By: #### 3 0477 #### [facility] [address] [place] [address], [place] Glucose [Mass/Vol] 140 mg/dL High 70-100 [facility] Comment on above: Order Comment: No: D o not add to previous draw Performed By: #### 3 0477 #### [facility] [address] [place] [address], [place] Potassium [Moles/Vol] 3.5 mmol/L Normal 3.5-5.1 [facility] Comment on above: Order Comment: No: D o not add to previous draw Performed By: #### 3 0477 #### [facility] [address] [place] [address], [place] Protein [Mass/Vol] 5.9 g/dL Low 6.0-8.3 [facility] Comment on above: Order Comment: No: D o not add to previous draw Performed By: #### 3 0477 #### [facility] [address] [place] [address], [place] Sodium [Moles/Vol] 143 mmol/L Normal 136-145 [facility] Comment on above: Order Comment: No: D o not add to previous draw Performed By: #### 3 0477 #### [facility] [address] [place] [address], [place] Urea nitrogen [Mass/Vol] 47 mg/dL High 7-25 [facility] Comment on above: Order Comment: No: D o not add to previous draw Performed By: #### 3 0477 #### [facility] [address] [place] [address], [place] HEMOGLOBINon 11-23-2021 Hemoglobin (Bld) [Mass/Vol] 8.7 g/dL Low 13.0-17.0 [facility] Comment on above: Order Comment: merdeith holden start lab draw at 5pm followed by q12 at 5am tomorrow No: Do not add to previous draw Performed By: #### 9 2089 #### [facility] [place] [address], [facility] Hemoglobin (Bld) [Mass/Vol] 8.3 g/dL Low 13.0-17.0 [facility] Comment on above: Order Comment: meredith holden start lab draw at 5pm followed by q12 at 5am tomorrow Unknown Performed By: #### 9 2089 #### [facility] [address] [facility] [place] [address], [facility] MAGNESIUM BLOODon 11-23-2021 Magnesium [Mass/Vol] 2.2 mg/dL Normal 1.9-2.7 [facility] Comment on above: Order Comment: No: D o not add to previous draw Performed By: #### 3 0477 #### [address] [address], [facility] POC GLUCOSE LABon 11-23-2021 Glucose [Mass/Vol] 159 mg/dL High 70-100 [facility] Comment on above: Performed By: #### 3 0313 #### [facility] [address] [facility] [place] [address], [facility] Glucose [Mass/Vol] 226 mg/dL High 70-100 [facility] Comment on above: Performed By: #### 8 5499 #### [address] [address], [facility] PORTABLE CHEST 1 VIEWon 10-27 PORTABLE CHEST 1 VIEW [facility] Department of Radiology [address] [place] [id number] Patient Name: SANDIP BROUSSARD : 1940 Sex: M Age: Race: White Pt. Location: [id number] Patient Status: I Ordered Date: 11/23/2021 1:10:00 [...] cardiomegaly. Electronically signed: Jasper Plunkett. Transcribed by: [email or web address], User Resident: Electronically Signed by: JASPER PLUNKETT @ 11/23/2021 02:34 PM Normal [facility] Comment on above: Order Comment: Cardi omegaly COMP METABOLIC PANELon 11-22 Albumin [Mass/Vol] 3.3 g/dL Low 3.5-5.7 [facility] Comment on above: Order Comment: No: D o not add to previous draw Performed By: #### 1 0070, 38927 ####[facility] [facility] ALKALINE PHOSPH 37 IU/L Normal 34-104 [facility] Comment on above: Order Comment: No: D o not add to previous draw Performed By: #### 1 0070, 55783 ####[facility] [place] [address], [place] ALT [Catalytic activity/Vol] 32 U/L Normal 7-52 [facility] Comment on above: Order Comment: No: D o not add to previous draw Performed By: #### 1 0, 72458 ####[facility] [place] [address], [place] AST [Catalytic activity/Vol] 17 U/L Normal 13-39 [facility] Comment on above: Order Comment: No: D o not add to previous draw Performed By: #### 1 69, 16983 ####[facility] [place] [address], [place] Bilirubin [Mass/Vol] 0.9 mg/dL Normal 0.3-1.0 [facility] Comment on above: Order Comment: No: D o not add to previous draw Performed By: #### 1 69, 34438 ####[facility] [place] [address], [place] Calcium [Mass/Vol] 8.3 mg/dL Low 8.6-10.3 [facility] Comment on above: Order Comment: No: D o not add to previous draw Performed By: #### 1 69, 59030 ####[facility] [place] [address], [place] Chloride [Moles/Vol] 103 mmol/L Normal 98-107 [facility] Comment on above: Order Comment: No: D o not add to previous draw Performed By: #### 1 69, 90544 ####[facility] [place] [address], [place] CO2 [Moles/Vol] 28 mmol/L Normal 21-31 [facility] Comment on above: Order Comment: No: D o not add to previous draw Performed By: #### 1 69, 41538 ####[facility] [place] [address], [place] Creatinine [Mass/Vol] 1.92 mg/dL High 0.70-1.30 [facility] Comment on above: Order Comment: No: D o not add to previous draw Performed By: #### 1 0, 90658 ####[facility] [place] [address], [facility] eGFR- 41 ml/min/1.73sq m Abnormal >60 [facility] Comment on above: Order Comment: No: D o not add to previous draw Result Comment: Calc ulation may not be valid for patients over 70 years Performed By: #### 1 0, 63727 ####[facility] [place] [address], [facility] eGFR- non- 34 ml/min/1.73sq m Abnormal >60 [facility] Comment on above: Order Comment: No: D o not add to previous draw Result Comment: Calc ulation may not be valid for patients over 70 years Performed By: #### 1 0, 49083 ####[facility] [place] [address], [place] Glucose [Mass/Vol] 128 mg/dL High 70-100 [facility] Comment on above: Order Comment: No: D o not add to previous draw Performed By: #### 1 69, 28793 ####[facility] [place] [address], [facility] Potassium [Moles/Vol] 3.5 mmol/L Normal 3.5-5.1 [facility] Comment on above: Order Comment: No: D o not add to previous draw Performed By: #### 1 0, 23188 ####[facility] [place] [address], [place] Protein [Mass/Vol] 5.7 g/dL Low 6.0-8.3 [facility] Comment on above: Order Comment: No: D o not add to previous draw Performed By: #### 1 0, 04062 ####[facility] [place] [address], [facility] Sodium [Moles/Vol] 142 mmol/L Normal 136-145 [facility] Comment on above: Order Comment: No: D o not add to previous draw Performed By: #### 1 0, 15567 ####[facility] [place] [address], [facility] Urea nitrogen [Mass/Vol] 51 mg/dL High 7-25 [facility] Comment on above: Order Comment: No: D o not add to previous draw Performed By: #### 1 0, 24909 ####[facility] [place] [address], [facility] HEMOGLOBINon 11-22-2021 Hemoglobin (Bld) [Mass/Vol] 9.1 g/dL Low 13.0-17.0 [facility] Comment on above: Order Comment: pleas e start lab draw at 5pm followed by q12 at 5am tomorrow No: Do not add to previous draw Performed By: #### 9 2089 #### [facility] [address] [place] [address], [place] MAGNESIUM BLOODon 11-22-2021 Magnesium [Mass/Vol] 2.1 mg/dL Normal 1.9-2.7 [facility] Comment on above: Order Comment: No: D o not add to previous draw Performed By: #### 1 0, 17342 ####[facility] [place] [address], [place] POC GLUCOSE LABon 11-22-2021 Glucose [Mass/Vol] 155 mg/dL High 70-100 [facility] Comment on above: Performed By: #### 8 5499 #### [facility] [address] [place] [address], [place] Glucose [Mass/Vol] 227 mg/dL High 70-100 [facility] Comment on above: Performed By: #### 8 0299 #### [facility] [address] [place] [address], [facility] Glucose [Mass/Vol] 141 mg/dL High 70-100 [facility] Comment on above: Performed By: #### 3 2044 #### [facility] [address] [place] [address], [facility] UFH HEPARIN ASSAYon 11-23-19 UNFRACTIONATED HEPARIN 0.20 IU/mL Low 0.30-0.70 [facility] Comment on above: Result Comment: Richardson roxaban and Apixaban will interfere with the anti Xa assay used to monitor UFH and LMWH. Performed By: #### 5 0103 #### [facility] [address] [facility] [place] [address], [facility] CBC W/DIFFon 11-21-2021 ABS NEUTROPHILS 4.3 10*3/uL Normal 1.6-7.6 [facility] Comment on above: Order Comment: RIGHT BICEP Performed By: #### 3 0313 #### [facility] [address] [facility] [place] [address], [facility] ANISO Moderate Normal [facility] Comment on above: Order Comment: RIGHT BICEP Performed By: #### 3 0313 #### [facility] [address] [facility] [place] [address], [facility] Basophils (Bld) [#/Vol] 0.0 10*3/uL Normal 0.0-0.2 [facility] Comment on above: Order Comment: RIGHT BICEP Performed By: #### 3 0313 #### [facility] [address] [facility] [place] [place] [address], [facility] Basophils/100 WBC (Bld) 0.0 % Normal 0.0-1.0 [facility] Comment on above: Order Comment: RIGHT BICEP Performed By: #### 3 0313 #### [facility] [address] [place] [address], [place] Eosinophils (Bld) [#/Vol] 0.0 10*3/uL Normal 0.0-0.5 [facility] Comment on above: Order Comment: RIGHT BICEP Performed By: #### 3 0313 #### [facility] [address] [place] [address], [facility] Eosinophils/100 WBC (Bld) 0.0 % Normal 0.0-6.0 [facility] Comment on above: Order Comment: RIGHT BICEP Performed By: #### 3 0313 #### [facility] [address] Erythrocyte distribution width (RBC) [Ratio] 25.5 % High 11.5-15.0 [facility] Comment on above: Order Comment: RIGHT BICEP Performed By: #### 3 0313 #### [facility] [address] [place] [address], [facility] GIANT PLATELETS Present Normal [facility] Comment on above: Order Comment: RIGHT BICEP Performed By: #### 3 0313 #### [facility] [address] Hematocrit (Bld) [Volume fraction] 25.6 % Low 39.0-50.0 [facility] Comment on above: Order Comment: RIGHT BICEP Performed By: #### 3 0313 #### [facility] [address] [place] [address], [facility] Hemoglobin (Bld) [Mass/Vol] 8.7 g/dL Low 13.0-17.0 [facility] Comment on above: Order Comment: RIGHT BICEP Performed By: #### 3 0313 #### [facility] [address] [place] [address], [facility] IMM PLATELET FRAC 18.9 % High 0.8-6.3 [facility] Comment on above: Order Comment: RIGHT BICEP Performed By: #### 3 0313 #### [facility] [address] [place] [address], [facility] Lymphocytes (Bld) [#/Vol] 0.4 10*3/uL Low 1.2-4.0 [facility] Comment on above: Order Comment: RIGHT BICEP Performed By: #### 3 0313 #### [facility] [address] [facility] [place] [place] [address], [facility] Lymphocytes/100 WBC (Bld) 7.7 % Low 20.0-45.0 [facility] Comment on above: Order Comment: RIGHT BICEP Performed By: #### 3 0313 #### [facility] [address] [facility] [place] [place] [address], [facility] MACRO Slight Normal [facility] Comment on above: Order Comment: RIGHT BICEP Performed By: #### 3 3 #### [facility] [address] [facility] [place] [place] [address], [facility] MCH (RBC) [Entitic mass] 35.2 pg High 27.0-33.0 [facility] Comment on above: Order Comment: RIGHT BICEP Performed By: #### 3 0313 #### [facility] [address] [facility] [place] [place] [address], [facility] MCHC (RBC) [Mass/Vol] 34.0 g/dL Normal 32.0-35.0 [facility] Comment on above: Order Comment: RIGHT BICEP Performed By: #### 3 0313 #### [facility] [address] [facility] [place] [place] [address], [facility] MCV (RBC) [Entitic vol] 103.6 fL High 82.0-98.0 [facility] Comment on above: Order Comment: RIGHT BICEP Performed By: #### 3 0313 #### [facility] [address] [place] [address], [facility] METAMYELO 1.9 % High 0.0-0.0 [facility] Comment on above: Order Comment: RIGHT BICEP Performed By: #### 3 0313 #### [facility] [address] [place] [address], [facility] Monocytes (Bld) [#/Vol] 0.7 10*3/uL Normal 0.1-1.0 [facility] Comment on above: Order Comment: RIGHT BICEP Performed By: #### 3 3 #### [facility] [address] [place] [address], [facility] MONOS 12.5 % High 5.0-12.0 [facility] Comment on above: Order Comment: RIGHT BICEP Performed By: #### 3 3 #### [facility] [address] [place] [address], [facility] MYELOS 1.0 % High 0.0-0.0 [facility] Comment on above: Order Comment: RIGHT BICEP Performed By: #### 3 3 #### [facility] [address] [place] [address], [facility] Neutrophils/100 WBC (Bld) 76.9 % High 40.0-72.0 [facility] Comment on above: Order Comment: RIGHT BICEP Performed By: #### 3 3 #### [facility] [address] [place] [id number], [facility] Nucleated RBC/100 WBC (Bld) [Ratio] 1 % High 0-0 [facility] Comment on above: Order Comment: RIGHT BICEP Performed By: #### 3 3 #### [facility] [address] [place] [address], [place] PLAT CNT 122 10*3/uL Low 150-400 [facility] Comment on above: Order Comment: RIGHT BICEP Performed By: #### 3 3 #### [facility] [address] [place] [address], [place] POIK Slight Normal [facility] Comment on above: Order Comment: RIGHT BICEP Performed By: #### 3 3 #### [facility] [address] [place] [address], [place] RBC (Bld) [#/Vol] 2.47 10*6/uL Low 4.20-5.70 [facility] Comment on above: Order Comment: RIGHT BICEP Performed By: #### 3 0313 #### [facility] [address] [place] [address], [place] WBC (Bld) [#/Vol] 5.62 10*3/uL Normal 4.00-10.60 [facility] Comment on above: Order Comment: RIGHT BICEP Performed By: #### 3 0313 #### [facility] [address] [place] [address], [place] COMP METABOLIC PANELon 11-21 Albumin [Mass/Vol] 3.3 g/dL Low 3.5-5.7 [facility] Comment on above: Order Comment: No: D o not add to previous draw Performed By: #### 8 6001 #### [facility] [address] [place] [address], [place] ALKALINE PHOSPH 36 IU/L Normal 34-104 [facility] Comment on above: Order Comment: No: D o not add to previous draw Performed By: #### 8 6001 #### [facility] [address] [place] [address], [place] ALT [Catalytic activity/Vol] 46 U/L Normal 7-52 [facility] Comment on above: Order Comment: No: D o not add to previous draw Performed By: #### 8 6001 #### [facility] [address] [place] [address], [place] AST [Catalytic activity/Vol] 24 U/L Normal 13-39 [facility] Comment on above: Order Comment: No: D o not add to previous draw Performed By: #### 8 6001 #### [facility] [address] [place] [address], [place] Bilirubin [Mass/Vol] 1.0 mg/dL Normal 0.3-1.0 [facility] Comment on above: Order Comment: No: D o not add to previous draw Performed By: #### 8 6001 #### [facility] [address] [place] [address], [place] Calcium [Mass/Vol] 8.4 mg/dL Low 8.6-10.3 [facility] Comment on above: Order Comment: No: D o not add to previous draw Performed By: #### 8 6001 #### [facility] [address] [place] [address], [place] Chloride [Moles/Vol] 103 mmol/L Normal 98-107 [facility] Comment on above: Order Comment: No: D o not add to previous draw Performed By: #### 8 6001 #### [facility] [address] [place] [address], [place] CO2 [Moles/Vol] 31 mmol/L Normal 21-31 [facility] Comment on above: Order Comment: No: D o not add to previous draw Performed By: #### 8 6001 #### [facility] [address] [place] [address], [facility] Creatinine [Mass/Vol] 2.18 mg/dL High 0.70-1.30 [facility] Comment on above: Order Comment: No: D o not add to previous draw Performed By: #### 8 6001 #### [facility] [address] [place] [address], [place] eGFR- 35 ml/min/1.73sq m Abnormal >60 [facility] Comment on above: Order Comment: No: D o not add to previous draw Result Comment: Calc ulation may not be valid for patients over 70 years Performed By: #### 8 6001 #### [facility] [address] [place] [address], [facility] eGFR- non- 29 ml/min/1.73sq m Abnormal >60 [facility] Comment on above: Order Comment: No: D o not add to previous draw Result Comment: Calc ulation may not be valid for patients over 70 years Performed By: #### 8 6001 #### [facility] [address] [place] [address], [place] Glucose [Mass/Vol] 140 mg/dL High 70-100 [facility] Comment on above: Order Comment: No: D o not add to previous draw Performed By: #### 8 6001 #### [facility] [address] [place] [address], [place] Potassium [Moles/Vol] 3.3 mmol/L Low 3.5-5.1 [facility] Comment on above: Order Comment: No: D o not add to previous draw Performed By: #### 8 6001 #### [facility] [address] [place] [address], [place] Protein [Mass/Vol] 5.9 g/dL Low 6.0-8.3 [facility] Comment on above: Order Comment: No: D o not add to previous draw Performed By: #### 8 6001 #### [facility] [address] [place] [address], [place] Sodium [Moles/Vol] 143 mmol/L Normal 136-145 [facility] Comment on above: Order Comment: No: D o not add to previous draw Performed By: #### 8 6001 #### [facility] [address] [place] [address], [place] Urea nitrogen [Mass/Vol] 58 mg/dL High 7-25 [facility] Comment on above: Order Comment: No: D o not add to previous draw Performed By: #### 8 6001 #### [facility] [address] [place] [address], [place] FOLATE SERUMon 11-21-2021 SERUM FOLATE 4.85 ng/mL Low 6.60-1000.00 [facility] Comment on above: Result Comment: Norm al range reflects World Health Organization International Standard Performed By: #### 1 0070, 88166, 48420, 04714 ####[facility] [facility] [place] [address], [facility] HEMATOCRITon 11-21-2021 Hematocrit (Bld) [Volume fraction] 25.6 % Low 39.0-50.0 [facility] Comment on above: Order Comment: pleas e start lab draw at 5pm followed by q12 at 5am tomorrow No: Do not add to previous draw Performed By: #### 9 2088 #### [facility] [address] [facility] [place] [address], [facility] HEMOGLOBINon 11-21-2021 Hemoglobin (Bld) [Mass/Vol] 8.8 g/dL Low 13.0-17.0 [facility] Comment on above: Order Comment: pleas e start lab draw at 5pm followed by q12 at 5am tomorrow No: Do not add to previous draw Performed By: #### 9 2088 #### [facility] [address] [facility] [place] [address], [facility] Hemoglobin (Bld) [Mass/Vol] 8.5 g/dL Low 13.0-17.0 [facility] Comment on above: Order Comment: pleas e start lab draw at 5pm followed by q12 at 5am tomorrow No: Do not add to previous draw Performed By: #### 9 2088 #### [facility] [address] [place] [address], [facility] MAGNESIUM BLOODon 11-21-2021 Magnesium [Mass/Vol] 2.2 mg/dL Normal 1.9-2.7 [facility] Comment on above: Order Comment: No: D o not add to previous draw Performed By: #### 8 6001 #### [facility] [address] [place] [address], [facility] POC GLUCOSE LABon 11-21-2021 Glucose [Mass/Vol] 135 mg/dL High 70-100 [facility] Comment on above: Performed By: #### 8 5499 #### [facility] [address] [place] [address], [facility] Glucose [Mass/Vol] 142 mg/dL High 70-100 [facility] Comment on above: Performed By: #### 8 5499 #### [facility] [address] UFH HEPARIN ASSAYon 11-22-19 UNFRACTIONATED HEPARIN 0.41 IU/mL Normal 0.30-0.70 [facility] Comment on above: Result Comment: Brittani roxaban and Apixaban will interfere with the anti Xa assay used to monitor UFH and LMWH. Performed By: #### 3 0477 #### [facility] [address] [facility] [address] VITAMIN B12on 11-21-2021 Cobalamin (Vitamin B12) [Mass/Vol] 422 pg/mL Normal 180-914 [facility] Comment on above: Result Comment: REFE RENCE RANGES: 180-914 pg/mL Normal 145-179 pg/mL Indeterminate <145 pg/mL Deficient Performed By: #### 1 0070, 96539, 64286, 38104 ####[facility] [facility].[address] BASIC METABOLIC PANELon 10-27 Calcium [Mass/Vol] 8.4 mg/dL Low 8.6-10.3 [facility] Comment on above: Order Comment: No: D o not add to previous draw Performed By: #### 3 0477 #### [facility] [address] [facility] [place] [place] [address], [facility] Chloride [Moles/Vol] 104 mmol/L Normal 98-107 [facility] Comment on above: Order Comment: No: D o not add to previous draw Performed By: #### 3 0477 #### [facility] [address] [place] [address], [facility] CO2 [Moles/Vol] 31 mmol/L Normal 21-31 [facility] Comment on above: Order Comment: No: D o not add to previous draw Performed By: #### 3 0477 #### [facility] [address] [place] [address], [facility] Creatinine [Mass/Vol] 2.22 mg/dL High 0.70-1.30 [facility] Comment on above: Order Comment: No: D o not add to previous draw Performed By: #### 3 0477 #### [facility] [address] [place] [address], [facility] eGFR- 34 ml/min/1.73sq m Abnormal >60 [facility] Comment on above: Order Comment: No: D o not add to previous draw Result Comment: Calc ulation may not be valid for patients over 70 years Performed By: #### 3 0477 #### [facility] [address] [place] [address], [facility] eGFR- non- 28 ml/min/1.73sq m Abnormal >60 [facility] Comment on above: Order Comment: No: D o not add to previous draw Result Comment: Calc ulation may not be valid for patients over 70 years Performed By: #### 3 0477 #### [facility] [address] [place] [address], [facility] Glucose [Mass/Vol] 139 mg/dL High 70-100 [facility] Comment on above: Order Comment: No: D o not add to previous draw Performed By: #### 3 0477 #### [facility] [address] [place] [address], [facility] Potassium [Moles/Vol] 3.3 mmol/L Low 3.5-5.1 [facility] Comment on above: Order Comment: No: D o not add to previous draw Performed By: #### 3 0477 #### [facility] [address] [place] [address], [facility] Sodium [Moles/Vol] 143 mmol/L Normal 136-145 [facility] Comment on above: Order Comment: No: D o not add to previous draw Performed By: #### 3 0477 #### [facility] [address] [place] [address], [facility] Urea nitrogen [Mass/Vol] 49 mg/dL High 7-25 [facility] Comment on above: Order Comment: No: D o not add to previous draw Performed By: #### 3 7 #### [facility] [address] [facility] [address] CBC COMPLETE BLOOD COUNTon 0 11-20-2021 Hematocrit (Bld) [Volume fraction] 21.9 % Low 39.0-50.0 [facility] Comment on above: Order Comment: pleas e start lab draw at 5pm followed by q12 at 5am tomorrow No: Do not add to previous draw Performed By: #### 9 2088 #### [facility] [address] [facility] [place] [address], [facility] Hemoglobin (Bld) [Mass/Vol] 7.1 g/dL Low 13.0-17.0 [facility] Comment on above: Order Comment: pleas e start lab draw at 5pm followed by q12 at 5am tomorrow No: Do not add to previous draw Performed By: #### 9 9 #### [facility] [address] [facility] [place] [address], [facility] IMM PLATELET FRAC 20.3 % High 0.8-6.3 [facility] Comment on above: Order Comment: pleas e start lab draw at 5pm followed by q12 at 5am tomorrow No: Do not add to previous draw Performed By: #### 9 2088 #### [facility] [address] [place] [address], [facility] MCH (RBC) [Entitic mass] 36.4 pg High 27.0-33.0 [facility] Comment on above: Order Comment: pleas e start lab draw at 5pm followed by q12 at 5am tomorrow No: Do not add to previous draw Performed By: #### 2088 #### [facility] [address] [facility] [place] [address], [facility] MCHC (RBC) [Mass/Vol] 32.4 g/dL Normal 32.0-35.0 [facility] Comment on above: Order Comment: pleas e start lab draw at 5pm followed by q12 at 5am tomorrow No: Do not add to previous draw Performed By: #### 2088 #### [facility] [address] [place] [address], [facility] MCV (RBC) [Entitic vol] 112.3 fL High 82.0-98.0 [facility] Comment on above: Order Comment: pleas e start lab draw at 5pm followed by q12 at 5am tomorrow No: Do not add to previous draw Performed By: #### 2088 #### [facility] [address] [facility] [place] [address], [facility] Nucleated RBC/100 WBC (Bld) [Ratio] 0 % Normal 0-0 [facility] Comment on above: Order Comment: pleas e start lab draw at 5pm followed by q12 at 5am tomorrow No: Do not add to previous draw Performed By: #### 2088 #### [facility] [address] [place] [address], [facility] PLAT CNT 91 10*3/uL Low 150-400 [facility] Comment on above: Order Comment: pleas e start lab draw at 5pm followed by q12 at 5am tomorrow No: Do not add to previous draw Performed By: #### 2088 #### [facility] [address] [facility] [place] [address], [facility] RBC (Bld) [#/Vol] 1.95 10*6/uL Low 4.20-5.70 [facility] Comment on above: Order Comment: pleas e start lab draw at 5pm followed by q12 at 5am tomorrow No: Do not add to previous draw Performed By: #### 9 2088 #### [facility] [address] [place] [address], [facility] RDW ---- Normal 11.5-15.0 [facility] Comment on above: Order Comment: pleas e start lab draw at 5pm followed by q12 at 5am tomorrow No: Do not add to previous draw Performed By: #### 2088 #### [facility] [address] [place] [address], [facility] WBC (Bld) [#/Vol] 8.30 10*3/uL Normal 4.00-10.60 [facility] Comment on above: Order Comment: pleas e start lab draw at 5pm followed by q12 at 5am tomorrow No: Do not add to previous draw Performed By: #### 2088 #### [facility] [address] [place] [address], [facility] HEMATOCRITon 11-20-2021 Hematocrit (Bld) [Volume fraction] 23.6 % Low 39.0-50.0 [facility] Comment on above: Order Comment: pleas e start lab draw at 5pm followed by q12 at 5am tomorrow No: Do not add to previous draw Performed By: #### 2088 #### [facility] [address] [place] [address], [facility] HEMOGLOBINon 11-20-2021 Hemoglobin (Bld) [Mass/Vol] 7.8 g/dL Low 13.0-17.0 [facility] Comment on above: Order Comment: pleas e start lab draw at 5pm followed by q12 at 5am tomorrow No: Do not add to previous draw Performed By: #### 2088 #### [facility] [address] [place] [address], [facility] MAGNESIUM BLOODon 11-20-2021 Magnesium [Mass/Vol] 2.2 mg/dL Normal 1.9-2.7 [facility] Comment on above: Order Comment: No: D o not add to previous draw Performed By: #### 3 0477 #### [facility] [address] [place] [address], [facility] PHOSPHORUS BLOODon 2 Phosphate [Mass/Vol] 3.7 mg/dL Normal 2.5-5.0 [facility] Comment on above: Order Comment: No: D o not add to previous draw Performed By: #### 3 0477 #### [facility] [address] [place] [address], [facility] POC GLUCOSE LABon 11-20-2021 Glucose [Mass/Vol] 137 mg/dL High 70-100 [facility] Comment on above: Performed By: #### 3 0313 #### [facility] [address] [place] [address], [facility] Glucose [Mass/Vol] 134 mg/dL High 70-100 [facility] Comment on above: Performed By: #### 3 2044 #### [facility] [address] [facility] [place] [address], [facility] Glucose [Mass/Vol] 148 mg/dL High 70-100 [facility] Comment on above: Performed By: #### 8 5499 #### [facility] [address] [place] [address], [facility] RBC'S 1 UNITon 11-20-2021 CROSSMATCH INTERP 1 COMP Normal [facility] Comment on above: Performed By: #### 8 6001 #### [facility] [address] [place] [address], [facility] PRODUCT CODE 1 E0336 Normal [facility] Comment on above: Performed By: #### 8 6001 #### [facility] [address] [place] [address], [place] PRODUCT STATUS 1 RE Normal [facility] Comment on above: Result Comment: Resu lt changed by IF on 11/21/2021 07:27. The previous value was XM. Performed By: #### 8 6001 #### [facility] [address] [place] [address], [facility] UNIT ABO 1 A Normal [facility] Comment on above: Performed By: #### 8 6001 #### [facility] [address] [place] [address], [facility] UNIT ID 1 [id number] Normal [facility] Comment on above: Performed By: #### 8 6001 #### [facility] [address] [place] [address], [facility] UNIT RH 1 Positive Normal [facility] Comment on above: Performed By: #### 8 6001 #### [facility] [address] [place] [address], [facility] RBC'S 2 UNITSon 11-20-2021 CROSSMATCH INTERP 1 COMP Normal [facility] Comment on above: Order Comment: Evalu ate for Cardiomegaly Performed By: #### 8 6002 ####[facility] [facility] [place] [place] [address], [facility] CROSSMATCH INTERP 2 COMP Normal [facility] Comment on above: Order Comment: Evalu ate for Cardiomegaly Performed By: #### 8 6002 ####[facility] [place] [address], [facility] PRODUCT CODE 1 E0336 Normal [facility] Comment on above: Order Comment: Evalu ate for Cardiomegaly Performed By: #### 8 6002 ####[facility] [place] [address], [facility] PRODUCT CODE 2 E0336 Normal [facility] Comment on above: Order Comment: Evalu ate for Cardiomegaly Performed By: #### 8 6002 ####[facility] [place] [address], [facility] PRODUCT STATUS 1 PT Normal [facility] Comment on above: Order Comment: Evalu ate for Cardiomegaly Result Comment: Resu lt changed by IF on 11/20/2021 08:02. The previous value was XM. Result changed by IF on 11/21/2021 00:30. The previous value was IS. Performed By: #### 8 6002 ####[facility] [place] [address], [facility] PRODUCT STATUS 2 PT Normal [facility] Comment on above: Order Comment: Evalu ate for Cardiomegaly Result Comment: Resu lt changed by IF on 11/20/2021 19:00. The previous value was XX. Result changed by IF on 11/21/2021 00:30. The previous value was IS. Performed By: #### 8 6002 ####[facility] [place] [address], [facility] UNIT ABO 1 A Normal [facility] Comment on above: Order Comment: Evalu ate for Cardiomegaly Performed By: #### 8 6002 ####[facility] [place] [address], [facility] UNIT ABO 2 A Normal [facility] Comment on above: Order Comment: Evalu ate for Cardiomegaly Performed By: #### 8 6002 ####[facility] [place] [address], [facility] UNIT ID 1 [id number] Normal [facility] Comment on above: Order Comment: Evalu ate for Cardiomegaly Performed By: #### 8 6002 ####[facility] [place] [address], [facility] UNIT ID 2 [id number] Normal [facility] Comment on above: Order Comment: Evalu ate for Cardiomegaly Performed By: #### 8 6002 ####[facility] [place] [address], [facility] UNIT RH 1 Positive Normal [facility] Comment on above: Order Comment: Evalu ate for Cardiomegaly Performed By: #### 8 6002 ####[facility] [place] [address], [facility] UNIT RH 2 Positive Normal [facility] Comment on above: Order Comment: Evalu ate for Cardiomegaly Performed By: #### 8 6002 ####[facility] [place] [address], [facility] UFH HEPARIN ASSAYon 11-21-19 UNFRACTIONATED HEPARIN 0.32 IU/mL Normal 0.30-0.70 [facility] Comment on above: Result Comment: Brittani roxaban and Apixaban will interfere with the anti Xa assay used to monitor UFH and LMWH. Performed By: #### 3 0477 #### [facility] [address] UNFRACTIONATED HEPARIN 0.36 IU/mL Normal 0.30-0.70 [facility] Comment on above: Result Comment: Richardson roxaban and Apixaban will interfere with the anti Xa assay used to monitor UFH and LMWH. Performed By: #### 3 0477 #### [facility] [address] APTTon 11-19-2021 aPTT Coag (Bld) [Time] 32.7 s Normal 25.0-35.0 [facility] Comment on above: Order Comment: [...] PURPOSE. Performed By: #### 5 0103 #### [facility] [address] [place] [address], [facility] BASIC METABOLIC PANELon 04-2 Calcium [Mass/Vol] 8.3 mg/dL Low 8.6-10.3 [facility] Comment on above: Order Comment: Evalu ate for Cardiomegaly Performed By: #### 1 0070, 85816, 88935 ####[facility] [place] [address], [facility] Chloride [Moles/Vol] 104 mmol/L Normal 98-107 [facility] Comment on above: Order Comment: Evalu ate for Cardiomegaly Performed By: #### 1 0070, 90841, 45333 ####[facility] [place] [address], [facility] CO2 [Moles/Vol] 24 mmol/L Normal 21-31 [facility] Comment on above: Order Comment: Evalu ate for Cardiomegaly Performed By: #### 1 0070, 87320, 18576 ####[facility] [place] [address], [facility] Creatinine [Mass/Vol] 2.03 mg/dL High 0.70-1.30 [facility] Comment on above: Order Comment: Evalu ate for Cardiomegaly Performed By: #### 1 0070, 78498, 56856 ####[facility] [place] [address], [facility] eGFR- 38 ml/min/1.73sq m Abnormal >60 [facility] Comment on above: Order Comment: Evalu ate for Cardiomegaly Result Comment: Calc ulation may not be valid for patients over 70 years Performed By: #### 1 0070, 51981, 23470 ####[facility] [place] [address], [facility] eGFR- non- 32 ml/min/1.73sq m Abnormal >60 [facility] Comment on above: Order Comment: Evalu ate for Cardiomegaly Result Comment: Calc ulation may not be valid for patients over 70 years Performed By: #### 1 0070, 10225, 20986 ####[facility] [place] [address], [place] Glucose [Mass/Vol] 141 mg/dL High 70-100 [facility] Comment on above: Order Comment: Evalu ate for Cardiomegaly Performed By: #### 1 0070, 41512, 29567 ####[facility] [place] [address], [place] Potassium [Moles/Vol] 3.8 mmol/L Normal 3.5-5.1 [facility] Comment on above: Order Comment: Evalu ate for Cardiomegaly Performed By: #### 1 0070, 80455, 78483 ####[facility] [place] [address], [place] Sodium [Moles/Vol] 141 mmol/L Normal 136-145 [facility] Comment on above: Order Comment: Evalu ate for Cardiomegaly Performed By: #### 1 0070, 70162, 44121 ####[facility] [place] [address], [place] Urea nitrogen [Mass/Vol] 42 mg/dL High 7-25 [facility] Comment on above: Order Comment: Evalu ate for Cardiomegaly Performed By: #### 1 0070, 14259, 70551 ####[facility] [place] [address], [place] CBC COMPLETE BLOOD COUNTon 0 11-19-2021 Hematocrit (Bld) [Volume fraction] 24.9 % Low 39.0-50.0 [facility] Comment on above: Order Comment: RIGHT BICEP Performed By: #### 3 0313 #### [facility] [address] [place] [address], [place] Hemoglobin (Bld) [Mass/Vol] 7.9 g/dL Low 13.0-17.0 [facility] Comment on above: Order Comment: RIGHT BICEP Performed By: #### 3 0313 #### [facility] [address] [place] [address], [facility] IMM PLATELET FRAC 19.8 % High 0.8-6.3 [facility] Comment on above: Order Comment: RIGHT BICEP Performed By: #### 3 0313 #### [facility] [address] [place] [address], [facility] MCH (RBC) [Entitic mass] 36.1 pg High 27.0-33.0 [facility] Comment on above: Order Comment: RIGHT BICEP Performed By: #### 3 0313 #### [facility] [address] [facility] [address] MCHC (RBC) [Mass/Vol] 31.7 g/dL Low 32.0-35.0 [facility] Comment on above: Order Comment: RIGHT BICEP Performed By: #### 3 0313 #### [facility] [address] [place] [address], [facility] MCV (RBC) [Entitic vol] 113.7 fL High 82.0-98.0 [facility] Comment on above: Order Comment: RIGHT BICEP Performed By: #### 3 0313 #### [facility] [address] [place] [address], [facility] Nucleated RBC/100 WBC (Bld) [Ratio] 0 % Normal 0-0 [facility] Comment on above: Order Comment: RIGHT BICEP Performed By: #### 3 0313 #### [facility] [address] [place] [address], [facility] PLAT CNT 73 10*3/uL Low 150-400 [facility] Comment on above: Order Comment: RIGHT BICEP Performed By: #### 3 0313 #### [facility] [address] [facility]. [address] RBC (Bld) [#/Vol] 2.19 10*6/uL Low 4.20-5.70 [facility] Comment on above: Order Comment: RIGHT BICEP Performed By: #### 3 0313 #### [facility] [address] [place] [address], [facility] RDW ---- Normal 11.5-15.0 [facility] Comment on above: Order Comment: RIGHT BICEP Performed By: #### 3 0313 #### [facility] [address] [place] [address], [place] WBC (Bld) [#/Vol] 11.57 10*3/uL High 4.00-10.60 [facility] Comment on above: Order Comment: RIGHT BICEP Performed By: #### 3 3 #### [facility] [address] [place] [address], [facility] MAGNESIUM BLOODon 11-19-2021 Magnesium [Mass/Vol] 2.0 mg/dL Normal 1.9-2.7 [facility] Comment on above: Order Comment: Evalu ate for Cardiomegaly Performed By: #### 1 0070, 51725, 99356 ####[facility] [place] [address], [facility] PHOSPHORUS BLOODon Phosphate [Mass/Vol] 3.3 mg/dL Normal 2.5-5.0 [facility] Comment on above: Order Comment: Evalu ate for Cardiomegaly Performed By: #### 1 0070, 85552, 19025 ####[facility] [place] [address], [place] POC GLUCOSE LABon 11-19-2021 Glucose [Mass/Vol] 174 mg/dL High 70-100 [facility] Comment on above: Performed By: #### 3 4 #### [facility] [address] [place] [address], [place] Glucose [Mass/Vol] 183 mg/dL High 70-100 [facility] Comment on above: Performed By: #### 3 4 #### [facility] [address] [facility] [place] [address], [facility] Glucose [Mass/Vol] 161 mg/dL High 70-100 [facility] Comment on above: Performed By: #### 3 4 #### [facility] [address] [facility] [place] [address], [facility] TROPONIN-Ion 11-19-2021 Troponin I.cardiac [Mass/Vol] 2.17 ng/mL Critically high 0.00-0.04 [facility] Comment on above: Order Comment: Evalu ate for Cardiomegaly Result Comment: M-MN EVIOUS CRITICAL RESULT REFERENCE RANGES: 0.00 - 0.04 ng/ml NORMAL 0.05 - 0.50 ng/ml INDETERMINATE > 0.50 ng/ml CONSISTENT WITH AN M.I. Performed By: #### 3 5200 ####[facility] UFH HEPARIN ASSAYon 11-20-19 22 UNFRACTIONATED HEPARIN 0.15 IU/mL Critically low 0.30-0.70 [facility] Comment on above: Result Comment: RESU LTS CHECKED AND CALLED. ACCURATELY READ BACK BY GALA SEN RN AT 2055 Rivaroxaban and Apixaban will interfere with the anti Xa assay used to monitor UFH and LMWH. Performed By: #### 3 1777 #### [facility] [address] [facility] [place] [address], [facility] UNFRACTIONATED HEPARIN <0.10 Critically low 0.30-0.70 [facility] Comment on above: Result Comment: RESU LTS CHECKED AND CALLED. ACCURATELY READ BACK BY TIFF ROSSI RN AT 1316 Rivaroxaban and Apixaban will interfere with the anti Xa assay used to monitor UFH and LMWH. Performed By: #### 5 0103 #### [facility] [address] [facility]. [address] *BLOOD CULTUREon 11-18-2021 *BLOOD CULTURE Clinical Report: (D) Specimen: BLOOD CULTURE Collected: 11/18/2021 04:44 Status: Final Last Updated: 11/23/2021 08:16 (1) RIGHT BICEP CULT RES (Final) No Growth Day 5 Normal [facility] Comment on above: Order Comment: RIGHT BICEP Performed By: #### 3 0313 #### [facility] [address] *BLOOD CULTURE Clinical Report: (D) Specimen: BLOOD CULTURE Collected: 11/18/2021 04:44 Status: Final Last Updated: 11/23/2021 08:16 (1) LEFT AC CULT RES (Final) No Growth Day 5 Normal [facility] Comment on above: Order Comment: RIGHT BICEP Performed By: #### 3 0313 #### [facility] [address] *SPUTUM CULTUREon 11-18-2021 *SPUTUM CULTURE Clinical [...] 8/4 Susceptible TOBRAMYCIN (TOB) <=2 Susceptible Normal [facility] Comment on above: Order Comment: RIGHT BICEP Performed By: #### 3 0313 #### [facility] [address] APTTon 11-18-2021 aPTT Coag (Bld) [Time] 27.5 s Normal 25.0-35.0 [facility] Comment on above: Order Comment: [...] PURPOSE. Performed By: #### 5 0103 #### [facility] [address] [place] [address], [facility] aPTT Coag (Bld) [Time] 25.6 s Normal 25.0-35.0 [facility] Comment on above: Result Comment: [...] PURPOSE. Performed By: #### 3 0477 #### [facility] [address] [place] [address], [facility] BASIC METABOLIC PANELon 10-27 Calcium [Mass/Vol] 8.5 mg/dL Low 8.6-10.3 [facility] Comment on above: Order Comment: No: D o not add to previous draw Performed By: #### 8 6001 #### [facility] [address] [place] [address], [facility] Chloride [Moles/Vol] 100 mmol/L Normal 98-107 [facility] Comment on above: Order Comment: No: D o not add to previous draw Performed By: #### 8 6001 #### [facility] [address] [place] [address], [place] CO2 [Moles/Vol] 26 mmol/L Normal 21-31 [facility] Comment on above: Order Comment: No: D o not add to previous draw Performed By: #### 8 6001 #### [facility] [address] [place] [address], [place] Creatinine [Mass/Vol] 2.27 mg/dL High 0.70-1.30 [facility] Comment on above: Order Comment: No: D o not add to previous draw Performed By: #### 8 6001 #### [facility] [address] [place] [address], [place] eGFR- 34 ml/min/1.73sq m Abnormal >60 [facility] Comment on above: Order Comment: No: D o not add to previous draw Result Comment: Calc ulation may not be valid for patients over 70 years Performed By: #### 8 6001 #### [facility] [address] [place] [address], [place] eGFR- non- 28 ml/min/1.73sq m Abnormal >60 [facility] Comment on above: Order Comment: No: D o not add to previous draw Result Comment: Calc ulation may not be valid for patients over 70 years Performed By: #### 8 6001 #### [facility] [address] [place] [address], [place] Glucose [Mass/Vol] 162 mg/dL High 70-100 [facility] Comment on above: Order Comment: No: D o not add to previous draw Performed By: #### 8 6001 #### [facility] [address] [place] [address], [place] Potassium [Moles/Vol] 4.1 mmol/L Normal 3.5-5.1 [facility] Comment on above: Order Comment: No: D o not add to previous draw Performed By: #### 8 6001 #### [facility] [address] [place] [address], [place] Sodium [Moles/Vol] 140 mmol/L Normal 136-145 [facility] Comment on above: Order Comment: No: D o not add to previous draw Performed By: #### 8 6001 #### [facility] [address] Urea nitrogen [Mass/Vol] 38 mg/dL High 7-25 [facility] Comment on above: Order Comment: No: D o not add to previous draw Performed By: #### 8 6001 #### [facility] [address] CBC W/DIFFon 11-18-2021 ABS IMM GRANS 0.1 10*3/uL Normal 0.0-0.2 [facility] Comment on above: Order Comment: No: D o not add to previous draw Performed By: #### 5 0103 #### [facility] [address] ABS NEUTROPHILS 8.1 10*3/uL High 1.6-7.6 [facility] Comment on above: Order Comment: No: D o not add to previous draw Performed By: #### 5 0103 #### [facility] [address] ANISO Moderate Normal [facility] Comment on above: Order Comment: No: D o not add to previous draw Performed By: #### 5 0103 #### [facility] [address] Basophils (Bld) [#/Vol] 0.0 10*3/uL Normal 0.0-0.2 [facility] Comment on above: Order Comment: No: D o not add to previous draw Performed By: #### 5 0103 #### [facility] [address] [place] [address], [facility] Basophils/100 WBC (Bld) 0.2 % Normal 0.0-1.0 [facility] Comment on above: Order Comment: No: D o not add to previous draw Performed By: #### 5 0103 #### [facility] [address] [place] [address], [facility] Eosinophils (Bld) [#/Vol] 0.0 10*3/uL Normal 0.0-0.5 [facility] Comment on above: Order Comment: No: D o not add to previous draw Performed By: #### 5 0103 #### [facility] [address] [place] [address], [facility] Eosinophils/100 WBC (Bld) 0.0 % Normal 0.0-6.0 [facility] Comment on above: Order Comment: No: D o not add to previous draw Performed By: #### 5 0103 #### [facility] [address] [place] [address], [facility] Hematocrit (Bld) [Volume fraction] 22.5 % Low 39.0-50.0 [facility] Comment on above: Order Comment: No: D o not add to previous draw Performed By: #### 5 0103 #### [facility] [address] [facility] [place] [address], [facility] Hemoglobin (Bld) [Mass/Vol] 7.3 g/dL Low 13.0-17.0 [facility] Comment on above: Order Comment: No: D o not add to previous draw Performed By: #### 5 0103 #### [facility] [address] [facility] [place] [address], [facility] IMM PLATELET FRAC 19.9 % High 0.8-6.3 [facility] Comment on above: Order Comment: No: D o not add to previous draw Performed By: #### 5 0103 #### [facility] [address] [place] [address], [facility] IMMATURE GRANS 0.8 % Normal 0.0-1.0 [facility] Comment on above: Order Comment: No: D o not add to previous draw Performed By: #### 5 0103 #### [facility] [address] [place] [address], [facility] Lymphocytes (Bld) [#/Vol] 0.6 10*3/uL Low 1.2-4.0 [facility] Comment on above: Order Comment: No: D o not add to previous draw Performed By: #### 5 0103 #### [facility] [address] [place] [address], [facility] Lymphocytes/100 WBC (Bld) 5.3 % Low 20.0-45.0 [facility] Comment on above: Order Comment: No: D o not add to previous draw Performed By: #### 5 0103 #### [facility] [address] [place] [address], [facility] MACRO Slight Normal [facility] Comment on above: Order Comment: No: D o not add to previous draw Performed By: #### 5 0103 #### [facility] [address] [place] [address], [facility] MCH (RBC) [Entitic mass] 35.4 pg High 27.0-33.0 [facility] Comment on above: Order Comment: No: D o not add to previous draw Performed By: #### 5 0103 #### [facility] [address] [place] [address], [facility] MCHC (RBC) [Mass/Vol] 32.4 g/dL Normal 32.0-35.0 [facility] Comment on above: Order Comment: No: D o not add to previous draw Performed By: #### 5 0103 #### [facility] [address] [place] [address], [facility] MCV (RBC) [Entitic vol] 109.2 fL High 82.0-98.0 [facility] Comment on above: Order Comment: No: D o not add to previous draw Performed By: #### 5 0103 #### [facility] [address] [place] [address], [facility] Monocytes (Bld) [#/Vol] 2.3 10*3/uL High 0.1-1.0 [facility] Comment on above: Order Comment: No: D o not add to previous draw Performed By: #### 5 0103 #### [facility] [address] [place] [address], [place] MONOS 20.6 % High 5.0-12.0 [facility] Comment on above: Order Comment: No: D o not add to previous draw Performed By: #### 5 0103 #### [facility] [address] [place] [address], [facility] Neutrophils/100 WBC (Bld) 73.1 % High 40.0-72.0 [facility] Comment on above: Order Comment: No: D o not add to previous draw Performed By: #### 5 0103 #### [facility] [address] [place] [address], [facility] Nucleated RBC/100 WBC (Bld) [Ratio] 0 % Normal 0-0 [facility] Comment on above: Order Comment: No: D o not add to previous draw Performed By: #### 5 0103 #### [facility] [address] [place] [address], [facility] OTHER 1 2 red cell populations Normal [facility] Comment on above: Order Comment: No: D o not add to previous draw Performed By: #### 5 0103 #### [facility] [address] [place] [address], [place] PLAT CNT 53 10*3/uL Low 150-400 [facility] Comment on above: Order Comment: No: D o not add to previous draw Performed By: #### 5 0103 #### [facility] [address] [place] [address], [place] POIK Slight Normal [facility] Comment on above: Order Comment: No: D o not add to previous draw Performed By: #### 5 0103 #### [facility] [address] [place] [address], [facility] POLY Slight Normal [facility] Comment on above: Order Comment: No: D o not add to previous draw Performed By: #### 5 0103 #### [facility] [address] [place] [id number], [facility] RBC (Bld) [#/Vol] 2.06 10*6/uL Low 4.20-5.70 [facility] Comment on above: Order Comment: No: D o not add to previous draw Performed By: #### 5 0103 #### [facility] [address] [place] [address], [facility] RDW ---- Normal 11.5-15.0 [facility] Comment on above: Order Comment: No: D o not add to previous draw Performed By: #### 5 0103 #### [facility] [address] [facility] [place] [address], [facility] WBC (Bld) [#/Vol] 11.14 10*3/uL High 4.00-10.60 [facility] Comment on above: Order Comment: No: D o not add to previous draw Performed By: #### 5 0103 #### [facility] [address] [place] [address], [facility] ABS IMM GRANS 0.1 10*3/uL Normal 0.0-0.2 [facility] Comment on above: Performed By: #### 3 0313 #### [facility] [address] [place] [address], [facility] ABS NEUTROPHILS 8.0 10*3/uL High 1.6-7.6 [facility] Comment on above: Performed By: #### 3 0313 #### [facility] [address] [place] [address], [facility] ANISO Moderate Normal [facility] Comment on above: Performed By: #### 3 0313 #### [facility] [address] [place] [address], [facility] Basophils (Bld) [#/Vol] 0.0 10*3/uL Normal 0.0-0.2 [facility] Comment on above: Performed By: #### 3 0313 #### [facility] [address] [place] [address], [facility] Basophils/100 WBC (Bld) 0.2 % Normal 0.0-1.0 [facility] Comment on above: Performed By: #### 3 0313 #### [facility] [address] [facility] [place] [address], [facility] Eosinophils (Bld) [#/Vol] 0.0 10*3/uL Normal 0.0-0.5 [facility] Comment on above: Performed By: #### 3 0313 #### [facility] [address] [facility] [place] [address], [facility] Eosinophils/100 WBC (Bld) 0.1 % Normal 0.0-6.0 [facility] Comment on above: Performed By: #### 3 0313 #### [facility] [address] [facility] [place] [address], [facility] Hematocrit (Bld) [Volume fraction] 21.7 % Low 39.0-50.0 [facility] Comment on above: Performed By: #### 3 0313 #### [facility] [address] [facility] [place] [id number], [facility] Hemoglobin (Bld) [Mass/Vol] 7.1 g/dL Low 13.0-17.0 [facility] Comment on above: Performed By: #### 3 0313 #### [facility] [address] [place] [address], [facility] IMM PLATELET FRAC 19.7 % High 0.8-6.3 [facility] Comment on above: Performed By: #### 3 0313 #### [facility] [address] IMMATURE GRANS 1.2 % High 0.0-1.0 [facility] Comment on above: Performed By: #### 3 0313 #### [facility] [address] Lymphocytes (Bld) [#/Vol] 0.6 10*3/uL Low 1.2-4.0 [facility] Comment on above: Performed By: #### 3 3 #### [facility] [address] Lymphocytes/100 WBC (Bld) 5.0 % Low 20.0-45.0 [facility] Comment on above: Performed By: #### 3 0313 #### [facility] [address] MACRO Slight Normal [facility] Comment on above: Performed By: #### 3 0313 #### [facility] [address] MCH (RBC) [Entitic mass] 36.0 pg High 27.0-33.0 [facility] Comment on above: Performed By: #### 3 0313 #### [facility] [address] MCHC (RBC) [Mass/Vol] 32.7 g/dL Normal 32.0-35.0 [facility] Comment on above: Performed By: #### 3 0313 #### [facility] [address] MCV (RBC) [Entitic vol] 110.2 fL High 82.0-98.0 [facility] Comment on above: Performed By: #### 3 0313 #### [facility] [address] [place] [address], [facility] Monocytes (Bld) [#/Vol] 2.3 10*3/uL High 0.1-1.0 [facility] Comment on above: Performed By: #### 3 0313 #### [facility] [address] [place] [address], [facility] MONOS 20.6 % High 5.0-12.0 [facility] Comment on above: Performed By: #### 3 0313 #### [facility] [address] [place] [address], [facility] Neutrophils/100 WBC (Bld) 72.9 % High 40.0-72.0 [facility] Comment on above: Performed By: #### 3 0313 #### [facility] [address] [place] [address], [facility] Nucleated RBC/100 WBC (Bld) [Ratio] 0 % Normal 0-0 [facility] Comment on above: Performed By: #### 3 0313 #### [facility] [address] [place] [address], [facility] OTHER 1 2 cell populations Normal [facility] Comment on above: Performed By: #### 3 0313 #### [facility] [address] [place] [address], [facility] PLAT CNT 48 10*3/uL Low 150-400 [facility] Comment on above: Performed By: #### 3 0313 #### [facility] [address] [facility] [place] [address], [facility] POLY Slight Normal [facility] Comment on above: Performed By: #### 3 0313 #### [facility] [address] [place] [address], [facility] RBC (Bld) [#/Vol] 1.97 10*6/uL Low 4.20-5.70 [facility] Comment on above: Performed By: #### 3 0313 #### [facility] [address] [place] [address], [facility] RDW ---- Normal 11.5-15.0 [facility] Comment on above: Performed By: #### 3 0313 #### [facility] [address] [place] [address], [place] WBC (Bld) [#/Vol] 11.02 10*3/uL High 4.00-10.60 [facility] Comment on above: Performed By: #### 3 0313 #### [facility] [address] [place] [address], [facility] COMP METABOLIC PANELon 11-18 Albumin [Mass/Vol] 3.8 g/dL Normal 3.5-5.7 [facility] Comment on above: Order Comment: No: D o not add to previous draw Performed By: #### 8 6001 #### [facility] [address] [place] [address], [place] ALKALINE PHOSPH 42 IU/L Normal 34-104 [facility] Comment on above: Order Comment: No: D o not add to previous draw Performed By: #### 8 6001 #### [facility] [address] [place] [address], [place] ALT [Catalytic activity/Vol] 48 U/L Normal 7-52 [facility] Comment on above: Order Comment: No: D o not add to previous draw Performed By: #### 8 6001 #### [facility] [address] [place] [address], [place] AST [Catalytic activity/Vol] 47 U/L High 13-39 [facility] Comment on above: Order Comment: No: D o not add to previous draw Performed By: #### 8 6001 #### [facility] [address] [place] [address], [place] Bilirubin [Mass/Vol] 1.4 mg/dL High 0.3-1.0 [facility] Comment on above: Order Comment: No: D o not add to previous draw Performed By: #### 8 6001 #### [facility] [address] [place] [address], [facility] Calcium [Mass/Vol] 8.7 mg/dL Normal 8.6-10.3 [facility] Comment on above: Order Comment: No: D o not add to previous draw Performed By: #### 8 6001 #### [facility] [address] [place] [address], [place] Chloride [Moles/Vol] 103 mmol/L Normal 98-107 [facility] Comment on above: Order Comment: No: D o not add to previous draw Performed By: #### 8 6001 #### [facility] [address] [place] [address], [place] CO2 [Moles/Vol] 27 mmol/L Normal 21-31 [facility] Comment on above: Order Comment: No: D o not add to previous draw Performed By: #### 8 6001 #### [facility] [address] [place] [address], [facility] Creatinine [Mass/Vol] 2.44 mg/dL High 0.70-1.30 [facility] Comment on above: Order Comment: No: D o not add to previous draw Performed By: #### 8 6001 #### [facility] [address] [place] [address], [place] eGFR- 31 ml/min/1.73sq m Abnormal >60 [facility] Comment on above: Order Comment: No: D o not add to previous draw Result Comment: Calc ulation may not be valid for patients over 70 years Performed By: #### 8 6001 #### [facility] [address] [place] [address], [place] eGFR- non- 26 ml/min/1.73sq m Abnormal >60 [facility] Comment on above: Order Comment: No: D o not add to previous draw Result Comment: Calc ulation may not be valid for patients over 70 years Performed By: #### 8 6001 #### [facility] [address] [place] [address], [place] Glucose [Mass/Vol] 128 mg/dL High 70-100 [facility] Comment on above: Order Comment: No: D o not add to previous draw Performed By: #### 8 6001 #### [facility] [address] [place] [address], [place] Potassium [Moles/Vol] 4.0 mmol/L Normal 3.5-5.1 [facility] Comment on above: Order Comment: No: D o not add to previous draw Performed By: #### 8 6001 #### [facility] [address] [place] [address], [place] Protein [Mass/Vol] 6.1 g/dL Normal 6.0-8.3 [facility] Comment on above: Order Comment: No: D o not add to previous draw Performed By: #### 8 6001 #### [facility] [address] [place] [address], [place] Sodium [Moles/Vol] 139 mmol/L Normal 136-145 [facility] Comment on above: Order Comment: No: D o not add to previous draw Performed By: #### 8 6001 #### [facility] [address] [place] [address], [place] Urea nitrogen [Mass/Vol] 34 mg/dL High 7-25 [facility] Comment on above: Order Comment: No: D o not add to previous draw Performed By: #### 8 6001 #### [facility] [address] [place] [address], [place] MAGNESIUM BLOODon 11-18-2021 Magnesium [Mass/Vol] 2.2 mg/dL Normal 1.9-2.7 [facility] Comment on above: Order Comment: No: D o not add to previous draw Performed By: #### 8 6001 #### [facility] [address] [place] [address], [place] PHOSPHORUS BLOODon 2 Phosphate [Mass/Vol] 3.5 mg/dL Normal 2.5-5.0 [facility] Comment on above: Order Comment: No: D o not add to previous draw Performed By: #### 8 6001 #### [facility] [address] [place] [address], [facility] POC GLUCOSE LABon 11-18-2021 Glucose [Mass/Vol] 171 mg/dL High 70-100 [facility] Comment on above: Performed By: #### 3 2044 #### [facility] [address] [place] [address], [place] Glucose [Mass/Vol] 169 mg/dL High 70-100 [facility] Comment on above: Performed By: #### 8 5499 #### [facility] [address] [facility] [place] [address], [facility] POC SARS COV2 ANTIGEN NEGATI VEon 11-18-2021 POC SARS COV2 ANTIGEN NEG Negative Normal NEGATIVE [facility] Comment on above: Result Comment: Nega [...] antigen from SARS-CoV-2 in direct nasopharyngeal swab (MFT) specimens from individuals who are suspected of [...] Accreditation. Performed By: #### 3 2044 #### [facility] [address] PROCALCITONINon 11-18-2021 PROCALCITONIN 7.09 ng/mL Critically high 0.00-0.10 [facility] Comment on above: Order Comment: [...] RN Performed By: #### 5 0103 #### [facility] [address] [place] [address], [place] PROTHROMBIN TIMEon 2 INR Coag (PPP) [Relative time] 1.31 {INR} High 0.91-1.16 [facility] Comment on above: Order Comment: No: D o not add to previous draw Result Comment: [facility] P RECOMMENDED INR FOR WARFARIN THERAPY -------- [...] 1995;108:231S-246S. Performed By: #### 5 0103 #### [facility] [address] [place] [address], [facility] PT Coag (PPP) [Time] 16.3 s High 12.3-14.8 [facility] Comment on above: Order Comment: No: D o not add to previous draw Result Comment: ALL RESULTS MUST BE INTERPRETED WITH RESPECT TO BLOOD DRAWING ARTIFACT OR DILUTION ERROR OF ANTICOAGULANT AT THE TIME OF SAMPLING. Performed By: #### 5 0103 #### [facility] [address] [place] [address], [facility] INR Coag (PPP) [Relative time] 1.35 {INR} High 0.91-1.16 [facility] Comment on above: Result Comment: [facility] P RECOMMENDED INR FOR WARFARIN THERAPY -------- [...] 1995;108:231S-246S. Performed By: #### 3 0477 #### [facility] [address] [facility]. [address] PT Coag (PPP) [Time] 16.7 s High 12.3-14.8 [facility] Comment on above: Result Comment: ALL RESULTS MUST BE INTERPRETED WITH RESPECT TO BLOOD DRAWING ARTIFACT OR DILUTION ERROR OF ANTICOAGULANT AT THE TIME OF SAMPLING. Performed By: #### 3 0477 #### [facility] [address] [place] [address], [facility] RBC'S 1 UNITon 11-18-2021 CROSSMATCH INTERP 1 COMP Normal [facility] Comment on above: Performed By: #### 8 6001 ####[facility] [facility].[address] PRODUCT CODE 1 E0336 Normal [facility] Comment on above: Performed By: #### 8 6001 ####[facility] PRODUCT STATUS 1 PT Normal [facility] Comment on above: Result Comment: Resu lt changed by IF on 11/18/2021 02:27. The previous value was XX. Result changed by IF on 11/19/2021 00:30. The previous value was IS. Performed By: #### 8 6001 ####[facility] [place] [address], [facility] UNIT ABO 1 A Normal [facility] Comment on above: Performed By: #### 8 6001 ####[facility] [facility] [place] [place] [address], [facility] UNIT ID 1 [id number] Normal [facility] Comment on above: Performed By: #### 8 6001 ####[facility] [facility] [place] [place] [address], [facility] UNIT RH 1 Positive Normal [facility] Comment on above: Performed By: #### 8 6001 ####[facility] [facility] [place] [place] [address], [facility] TROPONIN-Ion 11-18-2021 Troponin I.cardiac [Mass/Vol] 2.11 ng/mL Critically high 0.00-0.04 [facility] Comment on above: Order Comment: No: D o not add to previous draw Result Comment: M-MN EVIOUS CRITICAL RESULT REFERENCE RANGES: 0.00 - 0.04 ng/ml NORMAL 0.05 - 0.50 ng/ml INDETERMINATE > 0.50 ng/ml CONSISTENT WITH AN M.I. Performed By: #### 8 6001 #### [facility] [address] [place] [address], [facility] Troponin I.cardiac [Mass/Vol] 1.88 ng/mL Critically high 0.00-0.04 [facility] Comment on above: Order Comment: No: D o not add to previous draw Result Comment: M-MN EVIOUS CRITICAL RESULT REFERENCE RANGES: 0.00 - 0.04 ng/ml NORMAL 0.05 - 0.50 ng/ml INDETERMINATE > 0.50 ng/ml CONSISTENT WITH AN M.I. Performed By: #### 8 6001 #### [facility] [address] [place] [address], [facility] Troponin I.cardiac [Mass/Vol] 1.38 ng/mL Critically high 0.00-0.04 [facility] Comment on above: Order Comment: No: D o not add to previous draw Result Comment: M-MN EVIOUS CRITICAL RESULT REFERENCE RANGES: 0.00 - 0.04 ng/ml NORMAL 0.05 - 0.50 ng/ml INDETERMINATE > 0.50 ng/ml CONSISTENT WITH AN M.I. Performed By: #### 3 5200 ####[facility]3000 [facility].[address] Troponin I.cardiac [Mass/Vol] 2.00 ng/mL Critically high 0.00-0.04 [facility] Comment on above: Result Comment: M-MN EVIOUS CRITICAL RESULT REFERENCE RANGES: 0.00 - 0.04 ng/ml NORMAL 0.05 - 0.50 ng/ml INDETERMINATE > 0.50 ng/ml CONSISTENT WITH AN M.I. Performed By: #### 8 6001 #### [facility] [address] [facility] [address] Troponin I.cardiac [Mass/Vol] 1.90 ng/mL Critically high 0.00-0.04 [facility] Comment on above: Result Comment: M-MN EVIOUS CRITICAL RESULT REFERENCE RANGES: 0.00 - 0.04 ng/ml NORMAL 0.05 - 0.50 ng/ml INDETERMINATE > 0.50 ng/ml CONSISTENT WITH AN M.I. Performed By: #### 3 5200 ####[facility]3000 [facility].[address] VENOUS BLOOD GASon 2 BASE EXCESS 4 mmol/L Normal [facility] Comment on above: Performed By: #### 5 0103 #### [facility] [address] [facility] [place] [address], [facility] DELIVERY SYSTEMS V60 Normal [facility] Comment on above: Performed By: #### 5 0103 #### [facility] [address] [place], [place] [address] [place] [address] HCO3 (Bld) [Moles/Vol] 29 mmol/L Normal [facility] Comment on above: Performed By: #### 5 0103 #### [facility] [address] [facility] [place] [address], [facility] MODALITY BIPAP 14/6 Normal [facility] Comment on above: Performed By: #### 5 0103 #### [facility] [address] [facility] Oxygen (Bld) [Partial pressure] 30 mm[Hg] Low 35-45 [facility] Comment on above: Performed By: #### 5 0103 #### [facility] [address] [facility]. [address] Oxygen saturation in Blood 37.1 % Low 65.0-75.0 [facility] Comment on above: Performed By: #### 5 0103 #### [facility] [address] [facility]. [address] PCO2 44 mmHg Normal [facility] Comment on above: Performed By: #### 5 0103 #### [facility] [address] pH (Bld) 7.43 [pH] High 7.31-7.41 [facility] Comment on above: Performed By: #### 5 0103 #### [facility] [address] [facility]. [address] APTTon 11-17-2021 aPTT Coag (Bld) [Time] 30.1 s Normal 25.0-35.0 [facility] Comment on above: Result Comment: [...] PURPOSE. Performed By: #### 5 0103 #### [facility] [address] [place] [address], [facility] BASIC METABOLIC PANELon 04-2 Calcium [Mass/Vol] 8.6 mg/dL Normal 8.6-10.3 [facility] Comment on above: Performed By: #### 1 0, 58995, 52940 ####[facility] [place] [address], [facility] Chloride [Moles/Vol] 99 mmol/L Normal 98-107 [facility] Comment on above: Performed By: #### 1 0, 46834, 03548 ####[facility] [place] [address], [facility] CO2 [Moles/Vol] 26 mmol/L Normal 21-31 [facility] Comment on above: Performed By: #### 1 0, , 81389 ####[facility] [place] [address], [facility] Creatinine [Mass/Vol] 2.68 mg/dL High 0.70-1.30 [facility] Comment on above: Performed By: #### 1 0, 27024, 21927 ####[facility] [place] [address], [facility] eGFR- 28 ml/min/1.73sq m Abnormal >60 [facility] Comment on above: Result Comment: Calc ulation may not be valid for patients over 70 years Performed By: #### 1 0070, 41591, 21334 ####[facility] [place] [address], [facility] eGFR- non- 23 ml/min/1.73sq m Abnormal >60 [facility] Comment on above: Result Comment: Calc ulation may not be valid for patients over 70 years Performed By: #### 1 0070, 86328, 66482 ####[facility] [place] [address], [facility] Glucose [Mass/Vol] 185 mg/dL High 70-100 [facility] Comment on above: Performed By: #### 1 0070, 63769, 78965 ####[facility] [place] [address], [facility] Potassium [Moles/Vol] 4.0 mmol/L Normal 3.5-5.1 [facility] Comment on above: Performed By: #### 1 0070, 65165, 24915 ####[facility] [place] [address], [facility] Sodium [Moles/Vol] 140 mmol/L Normal 136-145 [facility] Comment on above: Performed By: #### 1 0070, 39863, 06866 ####[facility] [facility].[address] Urea nitrogen [Mass/Vol] 34 mg/dL High 7-25 [facility] Comment on above: Performed By: #### 1 0070, 68781, 77153 ####[facility] [facility].[address] BNP EDon 11-17-2021 Natriuretic peptide B (Bld) [Mass/Vol] 1081 pg/mL High 0-100 [facility] Comment on above: Result Comment: Give n the appropriate clinical setting a BNP result of >100 pg/mL indicates congestive heart failure. Performed By: #### 8 6001 #### [facility] [address] [place] [address], [facility] CBC W/DIFFon 11-17-2021 ABS IMM GRANS 0.2 10*3/uL Normal 0.0-0.2 [facility] Comment on above: Performed By: #### 3 0313 #### [facility] [address] [place] [address], [facility] ABS NEUTROPHILS 9.3 10*3/uL High 1.6-7.6 [facility] Comment on above: Performed By: #### 3 0313 #### [facility] [address] [facility] [place] [address], [facility] ANISO Moderate Normal [facility] Comment on above: Performed By: #### 3 0313 #### [facility] [address] [place] [address], [facility] Basophils (Bld) [#/Vol] 0.0 10*3/uL Normal 0.0-0.2 [facility] Comment on above: Performed By: #### 3 0313 #### [facility] [address] [facility] [place] [place] [address], [facility] Basophils/100 WBC (Bld) 0.2 % Normal 0.0-1.0 [facility] Comment on above: Performed By: #### 3 0313 #### [facility] [address] [place] [address], [facility] Eosinophils (Bld) [#/Vol] 0.0 10*3/uL Normal 0.0-0.5 [facility] Comment on above: Performed By: #### 3 0313 #### [facility] [address] [facility] [place] [place] [address], [facility] Eosinophils/100 WBC (Bld) 0.0 % Normal 0.0-6.0 [facility] Comment on above: Performed By: #### 3 0313 #### [facility] [address] [facility] Erythrocyte distribution width (RBC) [Ratio] 21.6 % High 11.5-15.0 [facility] Comment on above: Performed By: #### 3 3 #### [facility] [address] [facility] [address] Hematocrit (Bld) [Volume fraction] 20.1 % Low 39.0-50.0 [facility] Comment on above: Performed By: #### 3 0313 #### [facility] [address] [facility] [place] [address], [facility] Hemoglobin (Bld) [Mass/Vol] 6.5 g/dL Low 13.0-17.0 [facility] Comment on above: Performed By: #### 3 0313 #### [facility] [address] [facility] [place] [address], [facility] HYPO Moderate Normal [facility] Comment on above: Performed By: #### 3 0313 #### [facility] [address] [place] [address], [facility] IMM PLATELET FRAC 20.4 % High 0.8-6.3 [facility] Comment on above: Performed By: #### 3 0313 #### [facility] [address] [place] [address], [facility] IMMATURE GRANS 1.3 % High 0.0-1.0 [facility] Comment on above: Performed By: #### 3 0313 #### [facility] [address] [place] [address], [facility] Lymphocytes (Bld) [#/Vol] 0.6 10*3/uL Low 1.2-4.0 [facility] Comment on above: Performed By: #### 3 0313 #### [facility] [address] [facility] [place] [address], [facility] Lymphocytes/100 WBC (Bld) 4.7 % Low 20.0-45.0 [facility] Comment on above: Performed By: #### 3 0313 #### [facility] [address] [place] [address], [facility] MACRO Moderate Normal [facility] Comment on above: Performed By: #### 3 0313 #### [facility] [address] [facility] [place] [address], [facility] MCH (RBC) [Entitic mass] 37.1 pg High 27.0-33.0 [facility] Comment on above: Performed By: #### 3 0313 #### [facility] [address] [facility] [place] [address], [facility] MCHC (RBC) [Mass/Vol] 32.3 g/dL Normal 32.0-35.0 [facility] Comment on above: Performed By: #### 3 0313 #### [facility] [address] [facility] [place] [place] [address], [facility] MCV (RBC) [Entitic vol] 114.9 fL High 82.0-98.0 [facility] Comment on above: Performed By: #### 3 0313 #### [facility] [address] [facility] [place] [place] [address], [facility] Monocytes (Bld) [#/Vol] 2.5 10*3/uL High 0.1-1.0 [facility] Comment on above: Performed By: #### 3 0313 #### [facility] [address] [facility] [place] [address], [facility] MONOS 19.8 % High 5.0-12.0 [facility] Comment on above: Performed By: #### 3 0313 #### [facility] [address] [facility] [place] [place] [address], [facility] Neutrophils/100 WBC (Bld) 74.0 % High 40.0-72.0 [facility] Comment on above: Performed By: #### 3 3 #### [facility] [address] [facility] [place] [address], [facility] Nucleated RBC/100 WBC (Bld) [Ratio] 0 % Normal 0-0 [facility] Comment on above: Performed By: #### 3 3 #### [facility] [address] [place] [address], [facility] OVALOCYTES Moderate Normal [facility] Comment on above: Performed By: #### 3 0313 #### [facility] [address] [facility] [address], [facility] PLAT CNT 52 10*3/uL Low 150-400 [facility] Comment on above: Performed By: #### 3 3 #### [facility] [address] [facility] [place] [address], [facility] POIK Moderate Normal [facility] Comment on above: Performed By: #### 3 0313 #### [facility] [address] [facility] [place] [address], [facility] RBC (Bld) [#/Vol] 1.75 10*6/uL Low 4.20-5.70 [facility] Comment on above: Performed By: #### 3 3 #### [facility] [address] [facility] [address], [facility] WBC (Bld) [#/Vol] 12.59 10*3/uL High 4.00-10.60 [facility] Comment on above: Performed By: #### 3 3 #### [facility] [address] [place] [address], [facility] MAGNESIUM BLOODon 11-17-2021 Magnesium [Mass/Vol] 1.7 mg/dL Low 1.9-2.7 [facility] Comment on above: Performed By: #### 1 0070, 18151, 91404 ####[facility] PORTABLE CHEST 1 VIEWon 10-27 PORTABLE CHEST 1 VIEW [facility] Department of Radiology [address] [place] [id number] Patient Name: SANDIP BROUSSARD : 1940 Sex: M Age: Race: White Pt. Location: [facility] Patient Status: E Ordered Date: 11/17/2021 7:20:00 [...] recommended. Electronically signed: Jasper Zelaya. Transcribed by: [email or web address], User Resident: Electronically Signed by: JASPER ZELAYA @ 11/17/2021 07:43 PM Normal [facility] Comment on above: Order Comment: Evalu ate for Cardiomegaly PROTHROMBIN TIMEon 2 INR Coag (PPP) [Relative time] 1.42 {INR} High 0.91-1.16 [facility] Comment on above: Result Comment: ACCC [...] 1995;[id number]. Performed By: #### 5 0103 #### [facility] [employer] [address] PT Coag (PPP) [Time] 17.3 s High 12.3-14.8 [facility] Comment on above: Result Comment: ALL RESULTS MUST BE INTERPRETED WITH RESPECT TO BLOOD DRAWING ARTIFACT OR DILUTION ERROR OF ANTICOAGULANT AT THE TIME OF SAMPLING. Performed By: #### 5 0103 #### [facility] [employer] [facility]. [address] RBC'S 1 UNITon 11-17-2021 CROSSMATCH INTERP 1 COMP Normal [facility] Comment on above: Performed By: #### 5 0103 #### [facility] [employer] [facility]. [address] PRODUCT CODE 1 [id number] Normal [facility] Comment on above: Performed By: #### 5 0103 #### [facility] [employer] [address] PRODUCT STATUS 1 PT Normal [facility] Comment on above: Result Comment: Resu lt changed by IF on 11/17/2021 20:41. The previous value was XM. Result changed by IF on 11/18/2021 00:30. The previous value was IS. Performed By: #### 5 0103 #### [facility] [address] [place] [address], [facility] UNIT ABO 1 A Normal [facility] Comment on above: Performed By: #### 5 0103 #### [facility] [address] [place] [address], [facility] UNIT ID 1 [id number] Normal [facility] Comment on above: Performed By: #### 5 0103 #### [facility] [address] [place] [address], [facility] UNIT RH 1 Positive Normal [facility] Comment on above: Performed By: #### 5 0103 #### [facility] [address] [place] [address], [facility] TROPONIN-Ion 11-17-2021 Troponin I.cardiac [Mass/Vol] 1.79 ng/mL Critically high 0.00-0.04 [facility] Comment on above: Result Comment: M-TR OPONIN INITIAL CRITICAL HIGH; RESPUN AND RETESTED M-CRITICAL RESULT(S) REVIEWED, CALLED TO AND READ BACK BY Judy Pablo RN at 2130. REFERENCE RANGES: 0.00 - 0.04 ng/ml NORMAL 0.05 - 0.50 ng/ml INDETERMINATE > 0.50 ng/ml CONSISTENT WITH AN M.I. Performed By: #### 1 0070, 46252, 28094 ####[facility] [place] [address], [facility] TYPE AND SCREENon 11-17-2021 ABO INTERPRETATION A Normal [facility] Comment on above: Performed By: #### 6 2586 ####[facility] [place] [address], [facility] RH INTERPRETATION Positive Normal [facility] Comment on above: Performed By: #### 6 2586 ####[facility] CBC W Auto Differential pane l (Bld)on 11-02-2021 Abs Baso 0.00 k/uL <0.11 k/uL [facility] Abs [place] 1.26 k/uL High <0.87 k/uL [facility] Absolute nRBC <0.01 <0.01 k/uL [facility] Anisocytosis Ql (Bld) Present [facility] Basophils/100 WBC (Bld) 0.0 % [facility] Differential cell count method Nom (Bld) Manual [facility] Eosinophils (Bld) [#/Vol] 0.00 10*3/uL <0.46 k/uL [facility] Eosinophils/100 WBC (Bld) 0.0 % [facility] Erythrocyte distribution width (RBC) [Ratio] 24.7 % High 11.5 - 15.0 % [facility] Hematocrit (Bld) [Volume fraction] 25.2 % Low 39.0 - 51.0 % [facility] Hemoglobin (Bld) [Mass/Vol] 7.9 g/dL Low 13.0 - 17.0 g/dL [facility] Lymphocytes (Bld) [#/Vol] 1.33 10*3/uL 1.00 - 4.00 k/uL [facility] Lymphocytes/100 WBC (Bld) 19.0 % [facility] MCH (RBC) [Entitic mass] 36.2 pg High 26.0 - 34.0 pg [facility] MCHC (RBC) [Mass/Vol] 31.3 g/dL 30.5 - 36.0 g/ dL [facility] MCV (RBC) [Entitic vol] 115.6 fL High 80.0 - 100.0 fL [facility] Monocytes/100 WBC (Bld) 18.0 % [facility] Neutrophils (Bld) [#/Vol] 4.42 10*3/uL 1.45 - 7.50 k/uL [facility] Neutrophils/100 WBC (Bld) 63.0 % [facility] Nucleated RBC/100 WBC (Bld) [Ratio] 0.0 /100 WBC [facility] Ovalocytes LM Ql (Bld) Few [facility] Platelet Estimate Adequate [facility] Platelet mean volume (Bld) [Entitic vol] 13.8 fL High 9.0 - 12.7 fL [facility] Platelets (Bld) [#/Vol] 226 10*3/uL 150 - 400 k/uL [facility] Polychromasia LM Ql (Bld) Slight [facility] RBC (Bld) [#/Vol] 2.18 10*6/uL Low 4.20 - 6.00 m/uL [facility] Red Cell Morph Reviewed [facility] WBC (Bld) [#/Vol] 7.02 10*3/uL 3.70 - 11.00 k/u L [facility] Comprehensive metabolic 2000 panelon 11-01-2021 Albumin [Mass/Vol] 4.2 g/dL 3.9 - 4.9 g/dL [facility] ALP [Catalytic activity/Vol] 51 U/L 38 - 113 U/L [facility] ALT [Catalytic activity/Vol] 22 U/L 10 - 54 U/L [facility] Anion gap [Moles/Vol] 13 mmol/L 9 - 18 mmol/L [facility] AST [Catalytic activity/Vol] 13 U/L Low 14 - 40 U/L [facility] Bilirubin [Mass/Vol] 0.5 mg/dL 0.2 - 1.3 mg/dL [facility] Calcium [Mass/Vol] 9.5 mg/dL 8.5 - 10.2 mg/dL [facility] Chloride [Moles/Vol] 104 mmol/L 97 - 105 mmol/L [facility] CO2 [Moles/Vol] 24 mmol/L 22 - 30 mmol/L [facility] Creatinine [Mass/Vol] 1.98 mg/dL High 0.73 - 1.22 mg /dL [facility] Estimated Glomerular Filtration Rate 33 mL/min/1.73m Low >=60 mL/min/1.73m [facility] Glucose [Mass/Vol] 154 mg/dL High 74 - 99 mg/dL [facility] Potassium [Moles/Vol] 3.6 mmol/L Low 3.7 - 5.1 mmol /L [facility] Protein [Mass/Vol] 6.3 g/dL 6.3 - 8.0 g/dL [facility] Sodium [Moles/Vol] 141 mmol/L 136 - 144 mmol/L [facility] Urea nitrogen [Mass/Vol] 41 mg/dL High 9 - 24 mg/dL [facility] LD LACTATE DEHYDROon 04-07-2 022 LDH [Catalytic activity/Vol] 263 U/L High 135 - 225 U/L [facility] Audiology Office/Clinic Note on 06-23-2018 Audiology Office/Clinic Note Patient seen for hearing aid evaluation, accompanied by his . Hearing test results were reviewed and appropriate hearing aid styles and levels of technology were discussed. Patient expressed interest in two Phonak Bolero B50 or 70-SP BTE hearing aids in [facility] with custom earmolds. Bilateral earmold impressions were [...] by Evette Stiles 06/23/18 13:47 EST Normal [facility] Audiology Office/Clinic Note on 06-11-2018 Audiology [...] by Evette Stiles 06/11/18 09:57 EST Normal [facility] Otolaryngology Office/Clinic Noteon 06-11-2018 Otolaryngology Office/Clinic [...] Mylene Andrew MD 06/11/18 11:02 EST Normal [facility] Otolaryngology Consultationo n 05-28-2018 Otolaryngology Consultation [...] Mylene Andrew MD 05/28/18 11:46 EDT Normal [facility] Vital Signs Date Time Vital Sign Value Performing Clinician Facility 01-20-2024 14:03040 Body height 167.64 cm [facility] 01-20-2024 14:030400 Body mass index (BMI) [Ratio] 30.9 kg/m2 [facility] 01-20-2024 14:03040 Body weight 87.08 kg [facility] 01-20-2024 14:030400 Diastolic blood pressure 58 mm[Hg] [facility] 01-20-2024 14:030400 Heart rate 65 /min [facility] 01-20-2024 14:03-0400 SaO2% (BldA) [Mass fraction] 100 % [facility] 01-20-2024 14:03-0400 Systolic blood pressure 104 mm[Hg] [facility] 11-26-2023 09:49-0400 Body height 167.6 cm Rowdy Yvette DO Work Phone: [facility] 11-26-2023 09:49-0400 Body mass index (BMI) [Ratio] 36.08 kg/m2 Rowdy Yvette DO Work Phone: [facility] 11-26-2023 09:49-0400 Body temperature 98.29 [degF] Rowdy Yvette DO Work Phone: [facility] 11-26-2023 09:49-0400 Body weight 101.4 kg Rowdy Yvette DO Work Phone: [facility] 11-26-2023 09:49-0400 Diastolic blood pressure 58 mm[Hg] Rowdy Yvette DO Work Phone: [facility] 11-26-2023 09:49-0400 Heart rate 64 /min Rowdy Yvette DO Work Phone: [facility] 11-26-2023 09:49-0400 Systolic blood pressure 102 mm[Hg] Rowdy Yvette DO Work Phone: [facility] 11-11-2023 14:44-0400 Body height 167.64 cm MD Jacquelin Barton Work Phone: [facility] 11-11-2023 14:44-0400 Body mass index (BMI) [Ratio] 35.8 kg/m2 MD Jacquelin Barton Work Phone: [facility] 11-11-2023 14:44-0400 Body temperature 96.5 [degF] MD Jacquelin Barton Work Phone: [facility] 11-11-2023 14:44-0400 Body weight 100.75 kg MD Jacquelin Barton Work Phone: [facility] 11-11-2023 14:44-0400 Diastolic blood pressure 60 mm[Hg] MD Jacquelin Barton Work Phone: [facility] 11-11-2023 14:44-0400 Heart rate 72 /min MD Jacquelin Barton Work Phone: [facility] 11-11-2023 14:44-0400 Inhaled oxygen flow rate 3 L/min MD Jacquelin Barton Work Phone: [facility] 11-11-2023 14:44-0400 Respiratory rate 18 /min MD Jacquelin Barton Work Phone: [facility] 11-11-2023 14:44-0400 SaO2% (BldA) [Mass fraction] 92 % MD Jacquelin Barton Work Phone: [facility] 11-11-2023 14:44-0400 Systolic blood pressure 100 mm[Hg] MD Jacquelin Barton Work Phone: [facility] 10-27-2023 15:06-0400 Body temperature 98.2 [degF] Curt Farah MD Work Phone: [facility] 10-17-2023 18:08-0400 Diastolic blood pressure 55 mm[Hg] MD Jacquelin Barton Work Phone: [facility] 10-17-2023 18:08-0400 Heart rate 80 /min MD Jacquelin Barton Work Phone: [facility] 10-17-2023 18:08-0400 Inhaled oxygen flow rate 3 L/min MD Jacquelin Barton Work Phone: [facility] 10-17-2023 18:08-0400 Respiratory rate 18 /min MD Jacquelin Barton Work Phone: [facility] 10-17-2023 18:08-0400 SaO2% (BldA) [Mass fraction] 99 % MD Jacquelin Barton Work Phone: [facility] 10-17-2023 18:08-0400 Systolic blood pressure 127 mm[Hg] MD Jacquelin Barton Work Phone: [facility] 10-17-2023 15:30-0400 Body height 167.64 cm MD Jacquelin Barton Work Phone: [facility] 10-17-2023 15:30-0400 Body weight 92.07 kg MD Jacquelin Barton Work Phone: [facility] 10-17-2023 15:26-0400 Body temperature 97.5 [degF] MD Jacquelin Barton Work Phone: [facility] 03-11-2023 13:00-0400 Blood Pressure Location [facility] 03-11-2023 13:00-0400 Body temperature 97.7 [degF] [facility] 03-11-2023 13:00-0400 Diastolic blood pressure 64 mm[Hg] [facility] 03-11-2023 13:00-0400 Heart rate 59 /min [facility] 03-11-2023 13:00-0400 Mean blood pressure 86 mm[Hg] [facility] 03-11-2023 13:00-0400 Respiratory rate 18 /min [facility] 03-11-2023 13:00-0400 SaO2% (BldA) [Mass fraction] 100 % [facility] 03-11-2023 13:00-0400 Systolic blood pressure 129 mm[Hg] [facility] 11-20-2022 15:16-0400 Body height 166.1 cm Asher Hummel MD Work Phone: [facility] 11-20-2022 15:16-0400 Body temperature 97.5 [degF] Asher Hummel MD Work Phone: [facility] 11-20-2022 15:16-0400 Body weight 95.44 kg Asher Hummel MD Work Phone: [facility] 11-20-2022 15:16-0400 Diastolic blood pressure 58 mm[Hg] Asher Hummel MD Work Phone: [facility] 11-20-2022 15:16-0400 Heart rate 59 /min Asher Hummel MD Work Phone: [facility] 11-20-2022 15:16-0400 Respiratory rate 18 /min Asher Hummel MD Work Phone: [facility] 11-20-2022 15:16-0400 SaO2% (BldA) [Mass fraction] 93 % Asher Hummel MD Work Phone: [facility] 11-20-2022 15:16-0400 Systolic blood pressure 98 mm[Hg] Asher Hummel MD Work Phone: [facility] 10-15-2022 14:14-0400 Body temperature 98.6 [degF] Kim López MD Work Phone: [facility] 10-15-2022 14:14-0400 Body weight 103.42 kg Kim López MD Work Phone: [facility] 10-15-2022 14:14-0400 Diastolic blood pressure 69 mm[Hg] Kim López MD Work Phone: [facility] 10-15-2022 14:14-0400 Heart rate 56 /min Kim López MD Work Phone: [facility] 10-15-2022 14:14-0400 Respiratory rate 19 /min Kim López MD Work Phone: [facility] 10-15-2022 14:14-0400 SaO2% (BldA) [Mass fraction] 100 % Kim López MD Work Phone: [facility] 10-15-2022 14:14-0400 Systolic blood pressure 129 mm[Hg] Kim López MD Work Phone: [facility] 09-18-2022 13:30-0500 Diastolic blood pressure 43 mm[Hg] Asher Hummel MD Work Phone: [facility] 09-18-2022 13:30-0500 Systolic blood pressure 126 mm[Hg] Asher Hummel MD Work Phone: [facility] 09-18-2022 13:28-0500 Body height 166.1 cm Asher Hummel MD Work Phone: [facility] 09-18-2022 13:28-0500 Body temperature 97.7 [degF] Asher Hummel MD Work Phone: [facility] 09-18-2022 13:28-0500 Body weight 100.25 kg Asher Hummel MD Work Phone: [facility] 09-18-2022 13:28-0500 Heart rate 71 /min Asher Hummel MD Work Phone: [facility] 09-18-2022 13:28-0500 Respiratory rate 18 /min Asher Hummel MD Work Phone: [facility] 09-18-2022 13:28-0500 SaO2% (BldA) [Mass fraction] 92 % Asher Hummel MD Work Phone: [facility] 08-28-2022 15:07-0500 Body height 166.1 cm Asher Hummel MD Work Phone: [facility] 08-28-2022 15:07-0500 Body temperature 97.3 [degF] Asher Hummel MD Work Phone: [facility] 08-28-2022 15:07-0500 Body weight 103.51 kg Asher Hummel MD Work Phone: [facility] 08-28-2022 15:07-0500 Diastolic blood pressure 62 mm[Hg] Asher Hummel MD Work Phone: [facility] 08-28-2022 15:07-0500 Heart rate 77 /min Asher Hummel MD Work Phone: [facility] 08-28-2022 15:07-0500 Respiratory rate 16 /min Asher Hummel MD Work Phone: [facility] 08-28-2022 15:07-0500 SaO2% (BldA) [Mass fraction] 92 % Asher Hummel MD Work Phone: [facility] 08-28-2022 15:07-0500 Systolic blood pressure 110 mm[Hg] Asher Hummel MD Work Phone: [facility] 08-21-2022 13:30-0500 Body height 166.1 cm Wilfred Martinez APRN.[employer] Work Phone: [facility] 08-21-2022 13:30-0500 Body temperature 97.59 [degF] Wilfred Martinez APRN.[employer] Work Phone: [facility] 08-21-2022 13:30-0500 Body weight 103.51 kg Wilfred Martinez APRN.[employer] Work Phone: [facility] 08-21-2022 13:30-0500 Diastolic blood pressure 37 mm[Hg] Wilfred Martinez APRN.[employer] Work Phone: [facility] 08-21-2022 13:30-0500 Heart rate 74 /min Wilfred Martinez APRN.[employer] Work Phone: [facility] 08-21-2022 13:30-0500 Respiratory rate 18 /min Wilfred Martinez APRN.[employer] Work Phone: [facility] 08-21-2022 13:30-0500 SaO2% (BldA) [Mass fraction] 92 % Wilfred Martinez APRN.[employer] Work Phone: [facility] 08-21-2022 13:30-0500 Systolic blood pressure 84 mm[Hg] Wilfred Martinez APRN.[employer] Work Phone: [facility] 08-14-2022 14:28-0500 Diastolic blood pressure 64 mm[Hg] Chair Roman Work Phone: [facility] 08-14-2022 14:28-0500 SaO2% (BldA) [Mass fraction] 97 % Chair Roman Work Phone: [facility] 08-14-2022 14:28-0500 Systolic blood pressure 102 mm[Hg] Chair Roman Work Phone: [facility] 08-14-2022 13:55-0500 Body height 166.1 cm Wilfred Martinez APRN.[employer] Work Phone: [facility] 08-14-2022 13:55-0500 Body temperature 97.3 [degF] Wilfred Martinez APRN.[employer] Work Phone: [facility] 08-14-2022 13:55-0500 Body weight 103.96 kg Wilfred Martinez APRN.[employer] Work Phone: [facility] 08-14-2022 13:55-0500 Diastolic blood pressure 41 mm[Hg] Wilfred Martinez APRN.[employer] Work Phone: [facility] 08-14-2022 13:55-0500 Heart rate 71 /min Wilfred Martinez APRN.[employer] Work Phone: [facility] 08-14-2022 13:55-0500 Respiratory rate 16 /min Wilfred Martinez APRN.[employer] Work Phone: [facility] 08-14-2022 13:55-0500 SaO2% (BldA) [Mass fraction] 90 % Wilfred Martinez APRN.[employer] Work Phone: [facility] 08-14-2022 13:55-0500 Systolic blood pressure 93 mm[Hg] Wilfred Martinez APRN.CNP Work Phone: [facility] 08-07-2022 15:19-0500 Diastolic blood pressure 57 mm[Hg] Asher Hummel MD Work Phone: [facility] 08-07-2022 15:19-0500 Systolic blood pressure 112 mm[Hg] Asher Hummel MD Work Phone: [facility] 08-07-2022 15:14-0500 Body height 166.1 cm Asher Hummel MD Work Phone: [facility] 08-07-2022 15:14-0500 Body temperature 97.81 [degF] Asher Hummel MD Work Phone: [facility] 08-07-2022 15:14-0500 Body weight 102.97 kg Asher Hummel MD Work Phone: [facility] 08-07-2022 15:14-0500 Heart rate 71 /min Asher Hummel MD Work Phone: [facility] 08-07-2022 15:14-0500 Respiratory rate 16 /min Asher Hummel MD Work Phone: [facility] 08-07-2022 15:14-0500 SaO2% (BldA) [Mass fraction] 94 % Asher Hummel MD Work Phone: [facility] 07-30-2022 15:00-0500 Body height 166.1 cm Radha Sandoval PA-C Work Phone: [facility] 07-30-2022 15:00-0500 Body temperature 97.9 [degF] Radha Sandoval PA-C Work Phone: [facility] 07-30-2022 15:00-0500 Body weight 104.69 kg Radha Sandoval PA-C Work Phone: [facility] 07-30-2022 15:00-0500 Diastolic blood pressure 52 mm[Hg] Radha Lori PA-C Work Phone: [facility] 07-30-2022 15:00-0500 Heart rate 83 /min Radha Lori PA-C Work Phone: [facility] 07-30-2022 15:00-0500 Respiratory rate 18 /min Radha Lori PA-C Work Phone: [facility] 07-30-2022 15:00-0500 SaO2% (BldA) [Mass fraction] 97 % Radha Lori PA-C Work Phone: [facility] 07-30-2022 15:00-0500 Systolic blood pressure 97 mm[Hg] Radha Lori PA-C Work Phone: [facility] 07-23-2022 14:23-0500 Body height 166.1 cm Asher Hummel MD Work Phone: [facility] 07-23-2022 14:23-0500 Body temperature 97.81 [degF] Asher Hummel MD Work Phone: [facility] 07-23-2022 14:23-0500 Body weight 105.69 kg Asher Hummel MD Work Phone: [facility] 07-23-2022 14:23-0500 Diastolic blood pressure 58 mm[Hg] Asher Hummel MD Work Phone: [facility] 07-23-2022 14:23-0500 Heart rate 65 /min Asher Hummel MD Work Phone: [facility] 07-23-2022 14:23-0500 Respiratory rate 16 /min Asher Hummel MD Work Phone: [facility] 07-23-2022 14:23-0500 SaO2% (BldA) [Mass fraction] 95 % Asher Hummel MD Work Phone: [facility] 07-23-2022 14:23-0500 Systolic blood pressure 103 mm[Hg] Asher Hummel MD Work Phone: [facility] 07-16-2022 13:59-0500 Body temperature 98.01 [degF] Kim López MD Work Phone: [facility] 07-16-2022 13:59-0500 Body weight 106.87 kg Kim López MD Work Phone: [facility] 07-16-2022 13:59-0500 Diastolic blood pressure 59 mm[Hg] Kim López MD Work Phone: [facility] 07-16-2022 13:59-0500 Heart rate 50 /min Kim López MD Work Phone: [facility] 07-16-2022 13:59-0500 Respiratory rate 18 /min Kim López MD Work Phone: [facility] 07-16-2022 13:59-0500 SaO2% (BldA) [Mass fraction] 96 % Kim López MD Work Phone: [facility] 07-16-2022 13:59-0500 Systolic blood pressure 107 mm[Hg] Kim López MD Work Phone: [facility] 07-15-2022 15:02-0500 Body height 166.1 cm Chair [place] Work Phone: [facility] 07-15-2022 15:02-0500 Body weight 106.2 kg Chair [place] Work Phone: [facility] 07-15-2022 14:22-0500 Body height 166.1 cm Asher Hummel MD Work Phone: [facility] 07-15-2022 14:22-0500 Body temperature 97.59 [degF] Asher Hummel MD Work Phone: [facility] 07-15-2022 14:22-0500 Body weight 106.23 kg Asher Hummel MD Work Phone: [facility] 07-15-2022 14:22-0500 Diastolic blood pressure 43 mm[Hg] Asher Hummel MD Work Phone: [facility] 07-15-2022 14:22-0500 Heart rate 56 /min Asher Hummel MD Work Phone: [facility] 07-15-2022 14:22-0500 Respiratory rate 16 /min Asher Hummel MD Work Phone: [facility] 07-15-2022 14:22-0500 SaO2% (BldA) [Mass fraction] 93 % Asher Hummel MD Work Phone: [facility] 07-15-2022 14:22-0500 Systolic blood pressure 103 mm[Hg] Asher Hummel MD Work Phone: [facility] 07-09-2022 14:11-0500 Body temperature 97.2 [degF] Chair Roman Work Phone: [facility] 07-09-2022 14:11-0500 Diastolic blood pressure 71 mm[Hg] Chair [place] Work Phone: [facility] 07-09-2022 14:11-0500 Heart rate 68 /min Chair [place] Work Phone: [facility] 07-09-2022 14:11-0500 Respiratory rate 16 /min Chair [place] Work Phone: [facility] 07-09-2022 14:11-0500 Systolic blood pressure 107 mm[Hg] Chair Roman Work Phone: [facility] 07-08-2022 14:22-0500 Body height 166.1 cm Radha Harriser PA-C Work Phone: [facility] 07-08-2022 14:22-0500 Body temperature 97.59 [degF] Radha Harriser PA-C Work Phone: [facility] 07-08-2022 14:22-0500 Body weight 106.41 kg Radha Lori PA-C Work Phone: [facility] 07-08-2022 14:22-0500 Diastolic blood pressure 42 mm[Hg] Radha Lori PA-C Work Phone: [facility] 07-08-2022 14:22-0500 Heart rate 59 /min Radha Lori PA-C Work Phone: [facility] 07-08-2022 14:22-0500 Respiratory rate 18 /min Radha Lori PA-C Work Phone: [facility] 07-08-2022 14:22-0500 SaO2% (BldA) [Mass fraction] 97 % Radha Lori PA-C Work Phone: [facility] 07-08-2022 14:22-0500 Systolic blood pressure 99 mm[Hg] Radha Lori PA-C Work Phone: [facility] 07-02-2022 14:23-0500 Body temperature 97.9 [degF] Chair Roman Work Phone: [facility] 07-02-2022 14:23-0500 Diastolic blood pressure 62 mm[Hg] Chair [place] Work Phone: [facility] 07-02-2022 14:23-0500 Heart rate 50 /min Chair Roman Work Phone: [facility] 07-02-2022 14:23-0500 Respiratory rate 18 /min Chair [place] Work Phone: [facility] 07-02-2022 14:23-0500 SaO2% (BldA) [Mass fraction] 100 % Chair [place] Work Phone: [facility] 07-02-2022 14:23-0500 Systolic blood pressure 121 mm[Hg] Chair [place] Work Phone: [facility] 07-01-2022 14:15-0500 Body height 166.1 cm Asher Hummel MD Work Phone: [facility] 07-01-2022 14:15-0500 Body temperature 97.59 [degF] Asher Hummel MD Work Phone: [facility] 07-01-2022 14:15-0500 Body weight 105.05 kg Asher Hummel MD Work Phone: [facility] 07-01-2022 14:15-0500 Diastolic blood pressure 54 mm[Hg] Asher Hummel MD Work Phone: [facility] 07-01-2022 14:15-0500 Heart rate 77 /min Asher Hummel MD Work Phone: [facility] 07-01-2022 14:15-0500 Respiratory rate 16 /min Asher Hummel MD Work Phone: [facility] 07-01-2022 14:15-0500 SaO2% (BldA) [Mass fraction] 95 % Asher Hummel MD Work Phone: [facility] 07-01-2022 14:15-0500 Systolic blood pressure 104 mm[Hg] Asher Hummel MD Work Phone: [facility] 06-25-2022 13:35-0500 Body temperature 97.9 [degF] Chair Roman Work Phone: [facility] 06-25-2022 13:35-0500 Diastolic blood pressure 51 mm[Hg] Chair [place] Work Phone: [facility] 06-25-2022 13:35-0500 Heart rate 61 /min Chair Roman Work Phone: [facility] 06-25-2022 13:35-0500 Respiratory rate 18 /min Chair [place] Work Phone: [facility] 06-25-2022 13:35-0500 SaO2% (BldA) [Mass fraction] 99 % Chair [place] Work Phone: [facility] 06-25-2022 13:35-0500 Systolic blood pressure 113 mm[Hg] Chair [place] Work Phone: [facility] 06-24-2022 13:19-0500 Body height 166.1 cm Wilfred Martinez APRN.[employer] Work Phone: [facility] 06-24-2022 13:19-0500 Body temperature 97.39 [degF] Wilfred Martinez APRN.[employer] Work Phone: [facility] 06-24-2022 13:19-0500 Body weight 104.6 kg Wilfred Martinez APRN.[employer] Work Phone: [facility] 06-24-2022 13:19-0500 Diastolic blood pressure 52 mm[Hg] Wilfred Martinez APRN.[employer] Work Phone: [facility] 06-24-2022 13:19-0500 Heart rate 74 /min Wilfred Martinez APRN.[employer] Work Phone: [facility] 06-24-2022 13:19-0500 Respiratory rate 16 /min Wilfred Martinez APRN.[employer] Work Phone: [facility] 06-24-2022 13:19-0500 SaO2% (BldA) [Mass fraction] 95 % Wilfred Martinez APRN.[employer] Work Phone: [facility] 06-24-2022 13:19-0500 Systolic blood pressure 97 mm[Hg] Wilfred Martinez APRN.[employer] Work Phone: [facility] 06-18-2022 13:26-0500 Body temperature 97.7 [degF] Chair [place] Work Phone: [facility] 06-18-2022 13:26-0500 Diastolic blood pressure 74 mm[Hg] Chair [place] Work Phone: [facility] 06-18-2022 13:26-0500 Heart rate 65 /min Chair Roman Work Phone: [facility] 06-18-2022 13:26-0500 Respiratory rate 16 /min Chair Roman Work Phone: [facility] 06-18-2022 13:26-0500 SaO2% (BldA) [Mass fraction] 100 % Chair [place] Work Phone: [facility] 06-18-2022 13:26-0500 Systolic blood pressure 103 mm[Hg] Chair Roman Work Phone: [facility] 06-17-2022 10:04-0500 Body height 166.1 cm Asher Hummel MD Work Phone: [facility] 06-17-2022 10:04-0500 Body temperature 97.11 [degF] Asher Hummel MD Work Phone: [facility] 06-17-2022 10:04-0500 Body weight 105.23 kg Asher Hummel MD Work Phone: [facility] 06-17-2022 10:04-0500 Diastolic blood pressure 57 mm[Hg] Asher Hummel MD Work Phone: [facility] 06-17-2022 10:04-0500 Heart rate 67 /min Asher Hummel MD Work Phone: [facility] 06-17-2022 10:04-0500 Respiratory rate 18 /min sAher Hummel MD Work Phone: [facility] 06-17-2022 10:04-0500 SaO2% (BldA) [Mass fraction] 96 % Asher Hummel MD Work Phone: [facility] 06-17-2022 10:04-0500 Systolic blood pressure 108 mm[Hg] Asher Hummel MD Work Phone: [facility] 06-11-2022 14:00-0500 Body temperature 98.1 [degF] Chair [place] Work Phone: [facility] 06-11-2022 14:00-0500 Diastolic blood pressure 84 mm[Hg] Chair [place] Work Phone: [facility] 06-11-2022 14:00-0500 Heart rate 74 /min Chair [place] Work Phone: [facility] 06-11-2022 14:00-0500 Respiratory rate 18 /min Chair [place] Work Phone: [facility] 06-11-2022 14:00-0500 SaO2% (BldA) [Mass fraction] 95 % Chair [place] Work Phone: [facility] 06-11-2022 14:00-0500 Systolic blood pressure 121 mm[Hg] Chair Roman Work Phone: [facility] 06-10-2022 14:17-0500 Body height 166.1 cm Radha Lori PA-C Work Phone: [facility] 06-10-2022 14:17-0500 Body temperature 97.3 [degF] Radha Lori PA-C Work Phone: [facility] 06-10-2022 14:17-0500 Body weight 105.51 kg Radha Lori PA-C Work Phone: [facility] 06-10-2022 14:17-0500 Diastolic blood pressure 49 mm[Hg] Radha Lori PA-C Work Phone: [facility] 06-10-2022 14:17-0500 Heart rate 78 /min Radha Lori PA-C Work Phone: [facility] 06-10-2022 14:17-0500 Respiratory rate 20 /min Radha Lori PA-C Work Phone: [facility] 06-10-2022 14:17-0500 SaO2% (BldA) [Mass fraction] 94 % Radha Lori PA-C Work Phone: [facility] 06-10-2022 14:17-0500 Systolic blood pressure 111 mm[Hg] Radha Lori PA-C Work Phone: [facility] 06-03-2022 13:15-0500 Body height 166.1 cm Asher Hummel MD Work Phone: [facility] 06-03-2022 13:15-0500 Body temperature 97.2 [degF] Asher Hummel MD Work Phone: [facility] 06-03-2022 13:15-0500 Body weight 108.68 kg Asher Hummel MD Work Phone: [facility] 06-03-2022 13:15-0500 Diastolic blood pressure 59 mm[Hg] Asher Hummel MD Work Phone: [facility] 06-03-2022 13:15-0500 Heart rate 73 /min Asher Hummel MD Work Phone: [facility] 06-03-2022 13:15-0500 Respiratory rate 20 /min Asher Hummel MD Work Phone: [facility] 06-03-2022 13:15-0500 SaO2% (BldA) [Mass fraction] 95 % Asher Hummel MD Work Phone: [facility] 06-03-2022 13:15-0500 Systolic blood pressure 97 mm[Hg] Asher Hummel MD Work Phone: [facility] 05-28-2022 13:20-0400 Body temperature 97.39 [degF] Chair Roman Work Phone: [facility] 05-28-2022 13:20-0400 Diastolic blood pressure 56 mm[Hg] Chair [place] Work Phone: [facility] 05-28-2022 13:20-0400 Heart rate 60 /min Chair Roman Work Phone: [facility] 05-28-2022 13:20-0400 Respiratory rate 18 /min Chair Roman Work Phone: [facility] 05-28-2022 13:20-0400 SaO2% (BldA) [Mass fraction] 98 % Chair [place] Work Phone: [facility] 05-28-2022 13:20-0400 Systolic blood pressure 120 mm[Hg] Chair [place] Work Phone: [facility] 05-27-2022 13:34-0400 Body temperature 97.3 [degF] Chair Roman Work Phone: [facility] 05-27-2022 13:34-0400 Diastolic blood pressure 55 mm[Hg] Chair Roman Work Phone: [facility] 05-27-2022 13:34-0400 Heart rate 62 /min Chair [place] Work Phone: [facility] 05-27-2022 13:34-0400 Respiratory rate 18 /min Chair [place] Work Phone: [facility] 05-27-2022 13:34-0400 SaO2% (BldA) [Mass fraction] 98 % Chair [place] Work Phone: [facility] 05-27-2022 13:34-0400 Systolic blood pressure 120 mm[Hg] Chair [place] Work Phone: [facility] 05-21-2022 10:25-0400 Body temperature 98.01 [degF] Chair [place] Work Phone: [facility] 05-21-2022 10:25-0400 Diastolic blood pressure 57 mm[Hg] Chair [place] Work Phone: [facility] 05-21-2022 10:25-0400 Heart rate 53 /min Chair Roman Work Phone: [facility] 05-21-2022 10:25-0400 Respiratory rate 20 /min Chair [place] Work Phone: [facility] 05-21-2022 10:25-0400 SaO2% (BldA) [Mass fraction] 99 % Chair Roman Work Phone: [facility] 05-21-2022 10:25-0400 Systolic blood pressure 115 mm[Hg] Chair [place] Work Phone: [facility] 05-20-2022 13:54-0400 Body height 166.1 cm Asher Hummel MD Work Phone: [facility] 05-20-2022 13:54-0400 Body temperature 97.5 [degF] Asher Hummel MD Work Phone: [facility] 05-20-2022 13:54-0400 Body weight 108.14 kg Asher Hummel MD Work Phone: [facility] 05-20-2022 13:54-0400 Diastolic blood pressure 47 mm[Hg] Asher Hummel MD Work Phone: [facility] 05-20-2022 13:54-0400 Heart rate 74 /min Asher Hummel MD Work Phone: [facility] 05-20-2022 13:54-0400 Respiratory rate 18 /min Asher Hummel MD Work Phone: [facility] 05-20-2022 13:54-0400 SaO2% (BldA) [Mass fraction] 94 % Asher Hummel MD Work Phone: [facility] 05-20-2022 13:54-0400 Systolic blood pressure 121 mm[Hg] Asher Hummel MD Work Phone: [facility] 05-13-2022 14:48-0400 Body temperature 97.39 [degF] [facility] [place] Work Phone: [facility] 05-13-2022 14:48-0400 Diastolic blood pressure 61 mm[Hg] [facility] [place] Work Phone: [facility] 05-13-2022 14:48-0400 Heart rate 89 /min [facility] [place] Work Phone: [facility] 05-13-2022 14:48-0400 Respiratory rate 18 /min [facility] [place] Work Phone: [facility] 05-13-2022 14:48-0400 SaO2% (BldA) [Mass fraction] 96 % [facility] [place] Work Phone: [facility] 05-13-2022 14:48-0400 Systolic blood pressure 107 mm[Hg] [facility] [place] Work Phone: [facility] 05-06-2022 16:19-0400 Body height 167.1 cm Asher Hummel MD Work Phone: [facility] 05-06-2022 16:19-0400 Body temperature 97.5 [degF] Asher Hummel MD Work Phone: [facility] 05-06-2022 16:19-0400 Body weight 111.77 kg Asher Hummel MD Work Phone: [facility] 05-06-2022 16:19-0400 Diastolic blood pressure 83 mm[Hg] Asher Hummel MD Work Phone: [facility] 05-06-2022 16:19-0400 Heart rate 65 /min Asher Hummel MD Work Phone: [facility] 05-06-2022 16:19-0400 Respiratory rate 16 /min Asher Hummel MD Work Phone: [facility] 05-06-2022 16:19-0400 SaO2% (BldA) [Mass fraction] 94 % Asher Hummel MD Work Phone: [facility] 05-06-2022 16:19-0400 Systolic blood pressure 140 mm[Hg] Asher Hummel MD Work Phone: [facility] 04-29-2022 12:49-0400 Body height 167.1 cm Asher Hummel MD Work Phone: [facility] 04-29-2022 12:49-0400 Body temperature 97.81 [degF] Asher Hummel MD Work Phone: [facility] 04-29-2022 12:49-0400 Body weight 108.95 kg Asher Hummel MD Work Phone: [facility] 04-29-2022 12:49-0400 Diastolic blood pressure 64 mm[Hg] Asher Hummel MD Work Phone: [facility] 04-29-2022 12:49-0400 Heart rate 55 /min Asher Hummel MD Work Phone: [facility] 04-29-2022 12:49-0400 Respiratory rate 20 /min Asher Hummel MD Work Phone: [facility] 04-29-2022 12:49-0400 SaO2% (BldA) [Mass fraction] 92 % Asher Hummel MD Work Phone: [facility] 04-29-2022 12:49-0400 Systolic blood pressure 119 mm[Hg] Asher Hummel MD Work Phone: [facility] 04-25-2022 07:52-0400 Body height 167.1 cm Asher Hummel MD Work Phone: [facility] 04-25-2022 07:52-0400 Body temperature 97.2 [degF] Asher Hummel MD Work Phone: [facility] 04-25-2022 07:52-0400 Body weight 109.59 kg Asher Hummel MD Work Phone: [facility] 04-25-2022 07:52-0400 Diastolic blood pressure 59 mm[Hg] Asher Hummel MD Work Phone: [facility] 04-25-2022 07:52-0400 Heart rate 54 /min Asher Hummel MD Work Phone: [facility] 04-25-2022 07:52-0400 Respiratory rate 18 /min Asher Hummel MD Work Phone: [facility] 04-25-2022 07:52-0400 SaO2% (BldA) [Mass fraction] 94 % Asher Hummel MD Work Phone: [facility] 04-25-2022 07:52-0400 Systolic blood pressure 131 mm[Hg] Asher Hummel MD Work Phone: [facility] 04-18-2022 13:54-0400 Body height 167.1 cm Kim López MD Work Phone: [facility] 04-18-2022 13:54-0400 Body temperature 98.2 [degF] Kim López MD Work Phone: [facility] 04-18-2022 13:54-0400 Body weight 109.63 kg Kim López MD Work Phone: [facility] 04-18-2022 13:54-0400 Diastolic blood pressure 50 mm[Hg] Kim López MD Work Phone: [facility] 04-18-2022 13:54-0400 Heart rate 63 /min Kim López MD Work Phone: [facility] 04-18-2022 13:54-0400 Respiratory rate 22 /min Kim López MD Work Phone: [facility] 04-18-2022 13:54-0400 SaO2% (BldA) [Mass fraction] 98 % Kim López MD Work Phone: [facility] 04-18-2022 13:54-0400 Systolic blood pressure 135 mm[Hg] Kim López MD Work Phone: [facility] 04-08-2022 14:25-0400 Body height 165.2 cm Asher Hummel MD Work Phone: [facility] 04-08-2022 14:25-0400 Body temperature 97.3 [degF] Asher Hummel MD Work Phone: [facility] 04-08-2022 14:25-0400 Body weight 111.4 kg Asher Hummel MD Work Phone: [facility] 04-08-2022 14:25-0400 Diastolic blood pressure 62 mm[Hg] Asher Hummel MD Work Phone: [facility] 04-08-2022 14:25-0400 Heart rate 65 /min Asher Hummel MD Work Phone: [facility] 04-08-2022 14:25-0400 Respiratory rate 16 /min Asher Hummel MD Work Phone: [facility] 04-08-2022 14:25-0400 SaO2% (BldA) [Mass fraction] 94 % Asher Hummel MD Work Phone: [facility] 04-08-2022 14:25-0400 Systolic blood pressure 99 mm[Hg] Asher Hummel MD Work Phone: [facility] 03-25-2022 14:20-0400 Body temperature 98.1 [degF] [facility] [place] Work Phone: [facility] 03-25-2022 14:20-0400 Diastolic blood pressure 44 mm[Hg] [facility] [place] Work Phone: [facility] 03-25-2022 14:20-0400 Heart rate 66 /min [facility] [place] Work Phone: [facility] 03-25-2022 14:20-0400 Respiratory rate 18 /min [facility] [place] Work Phone: [facility] 03-25-2022 14:20-0400 SaO2% (BldA) [Mass fraction] 96 % [facility] [place] Work Phone: [facility] 03-25-2022 14:20-0400 Systolic blood pressure 109 mm[Hg] [facility] [place] Work Phone: [facility] 03-15-2022 13:58-0400 Heart rate 58 /min Chair [place] Work Phone: [facility] 03-15-2022 13:21-0400 Body temperature 97.81 [degF] Chair [place] Work Phone: [facility] 03-15-2022 13:21-0400 Diastolic blood pressure 49 mm[Hg] Chair [place] Work Phone: [facility] 03-15-2022 13:21-0400 Respiratory rate 18 /min Chair [place] Work Phone: [facility] 03-15-2022 13:21-0400 SaO2% (BldA) [Mass fraction] 97 % Chair [place] Work Phone: [facility] 03-15-2022 13:21-0400 Systolic blood pressure 111 mm[Hg] Chair [place] Work Phone: [facility] 03-14-2022 14:46-0400 Body temperature 97.81 [degF] Chair [place] Work Phone: [facility] 03-14-2022 14:46-0400 Diastolic blood pressure 63 mm[Hg] Chair [place] Work Phone: [facility] 03-14-2022 14:46-0400 Heart rate 64 /min Chair [place] Work Phone: [facility] 03-14-2022 14:46-0400 Respiratory rate 18 /min Chair [place] Work Phone: [facility] 03-14-2022 14:46-0400 SaO2% (BldA) [Mass fraction] 96 % Chair [place] Work Phone: [facility] 03-14-2022 14:46-0400 Systolic blood pressure 107 mm[Hg] Chair [place] Work Phone: [facility] 03-13-2022 14:41-0400 Body temperature 98.1 [degF] Chair [place] Work Phone: [facility] 03-13-2022 14:41-0400 Diastolic blood pressure 54 mm[Hg] Chair [place] Work Phone: [facility] 03-13-2022 14:41-0400 Heart rate 60 /min Chair [place] Work Phone: [facility] 03-13-2022 14:41-0400 Respiratory rate 20 /min Chair [place] Work Phone: [facility] 03-13-2022 14:41-0400 SaO2% (BldA) [Mass fraction] 97 % Chair [place] Work Phone: [facility] 03-13-2022 14:41-0400 Systolic blood pressure 116 mm[Hg] Chair [place] Work Phone: [facility] 03-11-2022 14:10-0400 Body height 165.2 cm Asher Hummel MD Work Phone: [facility] 03-11-2022 14:10-0400 Body temperature 97.3 [degF] Asher Hummel MD Work Phone: [facility] 03-11-2022 14:10-0400 Body weight 112.58 kg Asher Hummel MD Work Phone: [facility] 03-11-2022 14:10-0400 Diastolic blood pressure 38 mm[Hg] Asher Hummel MD Work Phone: [facility] 03-11-2022 14:10-0400 Heart rate 60 /min Asher Hummel MD Work Phone: [facility] 03-11-2022 14:10-0400 Respiratory rate 18 /min Asher Hummel MD Work Phone: [facility] 03-11-2022 14:10-0400 SaO2% (BldA) [Mass fraction] 98 % Asher Hummel MD Work Phone: [facility] 03-11-2022 14:10-0400 Systolic blood pressure 106 mm[Hg] Asher Hummel MD Work Phone: [facility] 02-25-2022 14:50-0400 Body temperature 98.1 [degF] [facility] [place] Work Phone: [facility] 02-25-2022 14:50-0400 Diastolic blood pressure 56 mm[Hg] [facility] [place] Work Phone: [facility] 02-25-2022 14:50-0400 Heart rate 59 /min [facility] [place] Work Phone: [facility] 02-25-2022 14:50-0400 Respiratory rate 18 /min [facility] [place] Work Phone: [facility] 02-25-2022 14:50-0400 SaO2% (BldA) [Mass fraction] 100 % [facility] [place] Work Phone: [facility] 02-25-2022 14:50-0400 Systolic blood pressure 110 mm[Hg] [facility] [place] Work Phone: [facility] 02-15-2022 13:15-0400 Body temperature 97.7 [degF] Chair [place] Work Phone: [facility] 02-15-2022 13:15-0400 Diastolic blood pressure 63 mm[Hg] Chair [place] Work Phone: [facility] 02-15-2022 13:15-0400 Heart rate 74 /min Chair [place] Work Phone: [facility] 02-15-2022 13:15-0400 Respiratory rate 18 /min Chair [place] Work Phone: [facility] 02-15-2022 13:15-0400 SaO2% (BldA) [Mass fraction] 99 % Chair Roman Work Phone: [facility] 02-15-2022 13:15-0400 Systolic blood pressure 109 mm[Hg] Chair [place] Work Phone: [facility] 02-14-2022 13:35-0400 Body temperature 97.59 [degF] Chair [place] Work Phone: [facility] 02-14-2022 13:35-0400 Diastolic blood pressure 79 mm[Hg] Chair [place] Work Phone: [facility] 02-14-2022 13:35-0400 Heart rate 65 /min Chair [place] Work Phone: [facility] 02-14-2022 13:35-0400 Respiratory rate 18 /min Chair Roman Work Phone: [facility] 02-14-2022 13:35-0400 SaO2% (BldA) [Mass fraction] 99 % Chair [place] Work Phone: [facility] 02-14-2022 13:35-0400 Systolic blood pressure 118 mm[Hg] Chair [place] Work Phone: [facility] 02-13-2022 13:10-0400 Body temperature 98.2 [degF] Chair [place] Work Phone: [facility] 02-13-2022 13:10-0400 Diastolic blood pressure 45 mm[Hg] Chair [place] Work Phone: [facility] 02-13-2022 13:10-0400 Heart rate 53 /min Chair [place] Work Phone: [facility] 02-13-2022 13:10-0400 Respiratory rate 18 /min Chair [place] Work Phone: [facility] 02-13-2022 13:10-0400 SaO2% (BldA) [Mass fraction] 99 % Chair [place] Work Phone: [facility] 02-13-2022 13:10-0400 Systolic blood pressure 101 mm[Hg] Chair [place] Work Phone: [facility] 02-12-2022 13:10-0400 Diastolic blood pressure 52 mm[Hg] Chair [place] Work Phone: [facility] 02-12-2022 13:10-0400 Heart rate 68 /min Chair Roman Work Phone: [facility] 02-12-2022 13:10-0400 Respiratory rate 18 /min Chair [place] Work Phone: [facility] 02-12-2022 13:10-0400 SaO2% (BldA) [Mass fraction] 98 % Chair [place] Work Phone: [facility] 02-12-2022 13:10-0400 Systolic blood pressure 98 mm[Hg] Chair [place] Work Phone: [facility] 02-11-2022 14:35-0400 Body height 165.2 cm Radha Lori PA-C Work Phone: [facility] 02-11-2022 14:35-0400 Body temperature 97 [degF] Radha Lori PA-C Work Phone: [facility] 02-11-2022 14:35-0400 Body weight 110.95 kg Radha Lori PA-C Work Phone: [facility] 02-11-2022 14:35-0400 Diastolic blood pressure 42 mm[Hg] Radha Lori PA-C Work Phone: [facility] 02-11-2022 14:35-0400 Heart rate 81 /min Radha Lori PA-C Work Phone: [facility] 02-11-2022 14:35-0400 Respiratory rate 16 /min Radha Lori PA-C Work Phone: [facility] 02-11-2022 14:35-0400 SaO2% (BldA) [Mass fraction] 98 % Radha Lori PA-C Work Phone: [facility] 02-11-2022 14:35-0400 Systolic blood pressure 104 mm[Hg] Radha Lori PA-C Work Phone: [facility] 02-04-2022 13:25-0400 Body temperature 98.1 [degF] [facility] [place] Work Phone: [facility] 02-04-2022 13:25-0400 Diastolic blood pressure 63 mm[Hg] [facility] [place] Work Phone: [facility] 02-04-2022 13:25-0400 Heart rate 88 /min [facility] [place] Work Phone: [facility] 02-04-2022 13:25-0400 Respiratory rate 20 /min [facility] [place] Work Phone: [facility] 02-04-2022 13:25-0400 SaO2% (BldA) [Mass fraction] 99 % [facility] [place] Work Phone: [facility] 02-04-2022 13:25-0400 Systolic blood pressure 142 mm[Hg] [facility] [place] Work Phone: [facility] 01-30-2022 14:00-0400 Body temperature 98.2 [degF] [facility] [place] Work Phone: [facility] 01-30-2022 14:00-0400 Diastolic blood pressure 54 mm[Hg] [facility] [place] Work Phone: [facility] 01-30-2022 14:00-0400 Heart rate 70 /min [facility] [place] Work Phone: [facility] 01-30-2022 14:00-0400 Respiratory rate 18 /min [facility] [place] Work Phone: [facility] 01-30-2022 14:00-0400 SaO2% (BldA) [Mass fraction] 98 % [facility] [place] Work Phone: [facility] 01-30-2022 14:00-0400 Systolic blood pressure 107 mm[Hg] [facility] [place] Work Phone: [facility] 01-21-2022 11:18-0400 Body temperature 97.81 [degF] Chair [place] Work Phone: [facility] 01-21-2022 11:18-0400 Diastolic blood pressure 52 mm[Hg] Chair [place] Work Phone: [facility] 01-21-2022 11:18-0400 Heart rate 78 /min Chair [place] Work Phone: [facility] 01-21-2022 11:18-0400 Respiratory rate 16 /min Chair [place] Work Phone: [facility] 01-21-2022 11:18-0400 SaO2% (BldA) [Mass fraction] 98 % Chair [place] Work Phone: [facility] 01-21-2022 11:18-0400 Systolic blood pressure 98 mm[Hg] Chair [place] Work Phone: [facility] 01-18-2022 13:20-0400 Body temperature 96.8 [degF] Chair [place] Work Phone: [facility] 01-18-2022 13:20-0400 Diastolic blood pressure 50 mm[Hg] Chair [place] Work Phone: [facility] 01-18-2022 13:20-0400 Heart rate 58 /min Chair [place] Work Phone: [facility] 01-18-2022 13:20-0400 Respiratory rate 18 /min Chair Roman Work Phone: [facility] 01-18-2022 13:20-0400 SaO2% (BldA) [Mass fraction] 99 % Chair Roman Work Phone: [facility] 01-18-2022 13:20-0400 Systolic blood pressure 116 mm[Hg] Chair [place] Work Phone: [facility] 01-17-2022 13:49-0400 Body temperature 97.3 [degF] Chair [place] Work Phone: [facility] 01-17-2022 13:49-0400 Diastolic blood pressure 68 mm[Hg] Chair [place] Work Phone: [facility] 01-17-2022 13:49-0400 Heart rate 56 /min Chair [place] Work Phone: [facility] 01-17-2022 13:49-0400 Respiratory rate 18 /min Chair [place] Work Phone: [facility] 01-17-2022 13:49-0400 SaO2% (BldA) [Mass fraction] 99 % Chair [place] Work Phone: [facility] 01-17-2022 13:49-0400 Systolic blood pressure 112 mm[Hg] Chair [place] Work Phone: [facility] 01-16-2022 13:06-0400 Body temperature 96.69 [degF] Chair [place] Work Phone: [facility] 01-16-2022 13:06-0400 Diastolic blood pressure 49 mm[Hg] Chair [place] Work Phone: [facility] 01-16-2022 13:06-0400 Heart rate 58 /min Chair [place] Work Phone: [facility] 01-16-2022 13:06-0400 Respiratory rate 18 /min Chair [place] Work Phone: [facility] 01-16-2022 13:06-0400 SaO2% (BldA) [Mass fraction] 98 % Chair [place] Work Phone: [facility] 01-16-2022 13:06-0400 Systolic blood pressure 109 mm[Hg] Chair [place] Work Phone: [facility] 01-15-2022 14:00-0400 Body temperature 98.29 [degF] Chair [place] Work Phone: [facility] 01-15-2022 14:00-0400 Diastolic blood pressure 57 mm[Hg] Chair [place] Work Phone: [facility] 01-15-2022 14:00-0400 Heart rate 72 /min Chair [place] Work Phone: [facility] 01-15-2022 14:00-0400 Respiratory rate 18 /min Chair [place] Work Phone: [facility] 01-15-2022 14:00-0400 SaO2% (BldA) [Mass fraction] 98 % Chair Roman Work Phone: [facility] 01-15-2022 14:00-0400 Systolic blood pressure 101 mm[Hg] Chair [place] Work Phone: [facility] 01-14-2022 13:24-0400 Body height 165.2 cm Asher Hummel MD Work Phone: [facility] 01-14-2022 13:24-0400 Body temperature 97.2 [degF] Asher Hummel MD Work Phone: [facility] 01-14-2022 13:24-0400 Body weight 108.14 kg Asher Hummel MD Work Phone: [facility] 01-14-2022 13:24-0400 Diastolic blood pressure 73 mm[Hg] Asher Hummel MD Work Phone: [facility] 01-14-2022 13:24-0400 Heart rate 64 /min Asher Hummel MD Work Phone: [facility] 01-14-2022 13:24-0400 Respiratory rate 16 /min Asher Hummel MD Work Phone: [facility] 01-14-2022 13:24-0400 SaO2% (BldA) [Mass fraction] 98 % Asher Hummel MD Work Phone: [facility] 01-14-2022 13:24-0400 Systolic blood pressure 126 mm[Hg] Asher Hummel MD Work Phone: [facility] 01-07-2022 14:00-0400 Body height 165.2 cm Ma Sand Work Phone: [facility] 01-07-2022 14:00-0400 Body temperature 97.59 [degF] Ma Sand Work Phone: [facility] 01-07-2022 14:00-0400 Body weight 101.15 kg Ma Sand Work Phone: [facility] 01-07-2022 14:00-0400 Diastolic blood pressure 56 mm[Hg] Ma Sand Work Phone: [facility] 01-07-2022 14:00-0400 Heart rate 70 /min Ma Sand Work Phone: [facility] 01-07-2022 14:00-0400 Respiratory rate 16 /min Ma Sand Work Phone: [facility] 01-07-2022 14:00-0400 SaO2% (BldA) [Mass fraction] 92 % Ma Sand Work Phone: [facility] 01-07-2022 14:00-0400 Systolic blood pressure 101 mm[Hg] Ma Sand Work Phone: [facility] 12-21-2021 13:24-0400 Body temperature 97.59 [degF] Chair [place] Work Phone: [facility] 12-21-2021 13:24-0400 Diastolic blood pressure 46 mm[Hg] Chair [place] Work Phone: [facility] 12-21-2021 13:24-0400 Heart rate 54 /min Chair [place] Work Phone: [facility] 12-21-2021 13:24-0400 Respiratory rate 18 /min Chair [place] Work Phone: [facility] 12-21-2021 13:24-0400 SaO2% (BldA) [Mass fraction] 97 % Chair [place] Work Phone: [facility] 12-21-2021 13:24-0400 Systolic blood pressure 127 mm[Hg] Chair [place] Work Phone: [facility] 12-20-2021 13:35-0400 Body temperature 97.7 [degF] Chair [place] Work Phone: [facility] 12-20-2021 13:35-0400 Diastolic blood pressure 55 mm[Hg] Chair [place] Work Phone: [facility] 12-20-2021 13:35-0400 Heart rate 57 /min Chair [place] Work Phone: [facility] 12-20-2021 13:35-0400 Respiratory rate 16 /min Chair [place] Work Phone: [facility] 12-20-2021 13:35-0400 SaO2% (BldA) [Mass fraction] 99 % Chair [place] Work Phone: [facility] 12-20-2021 13:35-0400 Systolic blood pressure 107 mm[Hg] Chair [place] Work Phone: [facility] 12-19-2021 13:32-0400 Body temperature 97.7 [degF] Chair [place] Work Phone: [facility] 12-19-2021 13:32-0400 Diastolic blood pressure 48 mm[Hg] Chair Roman Work Phone: [facility] 12-19-2021 13:32-0400 Heart rate 53 /min Chair Roman Work Phone: [facility] 12-19-2021 13:32-0400 Respiratory rate 18 /min Chair Roman Work Phone: [facility] 12-19-2021 13:32-0400 SaO2% (BldA) [Mass fraction] 97 % Chair Roman Work Phone: [facility] 12-19-2021 13:32-0400 Systolic blood pressure 113 mm[Hg] Chair [place] Work Phone: [facility] 12-17-2021 13:11-0400 Body height 165.2 cm Asher Hummel MD Work Phone: [facility] 12-17-2021 13:11-0400 Body temperature 97.3 [degF] Asher Hummel MD Work Phone: [facility] 12-17-2021 13:11-0400 Body weight 101.24 kg Asher Hummel MD Work Phone: [facility] 12-17-2021 13:11-0400 Diastolic blood pressure 53 mm[Hg] Asher Hummel MD Work Phone: [facility] 12-17-2021 13:11-0400 Heart rate 59 /min Asher Hummel MD Work Phone: [facility] 12-17-2021 13:11-0400 Respiratory rate 16 /min Asher Hummel MD Work Phone: [facility] 12-17-2021 13:11-0400 SaO2% (BldA) [Mass fraction] 88 % Asher Hummel MD Work Phone: [facility] 12-17-2021 13:11-0400 Systolic blood pressure 114 mm[Hg] Asher Hummel MD Work Phone: [facility] 11-29-2021 08:49-0400 Body height 165.2 cm Asher Hummel MD Work Phone: [facility] 11-29-2021 08:49-0400 Body temperature 97.81 [degF] Asher Hummel MD Work Phone: [facility] 11-29-2021 08:49-0400 Diastolic blood pressure 51 mm[Hg] Asher Hummel MD Work Phone: [facility] 11-29-2021 08:49-0400 Heart rate 58 /min Asher Hummel MD Work Phone: [place] [id number] 08:49-0400 Respiratory rate 16 /min Asher Hummel MD Work Phone: [facility] 11-29-2021 08:49-0400 SaO2% (BldA) [Mass fraction] 99 % Asher Hummel MD Work Phone: [facility] 11-29-2021 08:49-0400 Systolic blood pressure 134 mm[Hg] Asher Hummel MD Work Phone: [facility] 11-08-2021 16:00-0400 Body temperature 98.01 [degF] [facility] [place] Work Phone: [facility] 11-08-2021 16:00-0400 Body weight 109.77 kg [facility] [place] Work Phone: [facility] 11-08-2021 16:00-0400 Diastolic blood pressure 51 mm[Hg] [facility] [place] Work Phone: [facility] 11-08-2021 16:00-0400 Heart rate 80 /min [facility] [place] Work Phone: [facility] 11-08-2021 16:00-0400 Respiratory rate 16 /min [facility] [place] Work Phone: [facility] 11-08-2021 16:00-0400 SaO2% (BldA) [Mass fraction] 92 % [facility] [place] Work Phone: [facility] 11-08-2021 16:00-0400 Systolic blood pressure 123 mm[Hg] [facility] [place] Work Phone: [facility] 11-01-2021 14:03-0400 Body temperature 98.2 [degF] Chair [place] Work Phone: [facility] 11-01-2021 14:03-0400 Diastolic blood pressure 59 mm[Hg] Chair [place] Work Phone: [facility] 11-01-2021 14:03-0400 Heart rate 78 /min Chair [place] Work Phone: [facility] 11-01-2021 14:03-0400 Respiratory rate 18 /min Chair [place] Work Phone: [facility] 11-01-2021 14:03-0400 SaO2% (BldA) [Mass fraction] 98 % Chair [place] Work Phone: [facility] 11-01-2021 14:03-0400 Systolic blood pressure 109 mm[Hg] Chair [place] Work Phone: [facility] 10-30-2021 13:55-0400 Body temperature 97.7 [degF] Chair [place] Work Phone: [facility] 10-30-2021 13:55-0400 Diastolic blood pressure 53 mm[Hg] Chair [place] Work Phone: [facility] 10-30-2021 13:55-0400 Heart rate 82 /min Chair [place] Work Phone: [facility] 10-30-2021 13:55-0400 Respiratory rate 18 /min Chair Roman Work Phone: [facility] 10-30-2021 13:55-0400 SaO2% (BldA) [Mass fraction] 97 % Chair [place] Work Phone: [facility] 10-30-2021 13:55-0400 Systolic blood pressure 107 mm[Hg] Chair Roman Work Phone: [facility] 10-29-2021 14:27-0400 Body temperature 97.81 [degF] Chair [place] Work Phone: [facility] 10-29-2021 14:27-0400 Body weight 109.41 kg Chair Roman Work Phone: [facility] 10-29-2021 14:27-0400 Diastolic blood pressure 40 mm[Hg] Chair Roman Work Phone: [facility] 10-29-2021 14:27-0400 Heart rate 72 /min Chair Roman Work Phone: [facility] 10-29-2021 14:27-0400 Respiratory rate 18 /min Chair Roman Work Phone: [facility] 10-29-2021 14:27-0400 SaO2% (BldA) [Mass fraction] 98 % Chair Roman Work Phone: [facility] 10-29-2021 14:27-0400 Systolic blood pressure 102 mm[Hg] Chair [place] Work Phone: [facility] 10-25-2021 14:02-0400 Diastolic blood pressure 48 mm[Hg] Wilfred Martinez APRN.[employer] Work Phone: [facility] 10-25-2021 14:02-0400 Heart rate 80 /min Wilfred Martinez APRN.[employer] Work Phone: [facility] 10-25-2021 14:02-0400 Systolic blood pressure 140 mm[Hg] Wilfred Martinez APRN.[employer] Work Phone: [facility] 10-25-2021 14:00-0400 Body height 165.2 cm Wilfred Martinez APRN.[employer] Work Phone: [facility] 10-25-2021 14:00-0400 Body temperature 97.5 [degF] Wilfred Martinez APRN.[employer] Work Phone: [facility] 10-25-2021 14:00-0400 Body weight 108.77 kg Wilfred Martinez APRN.[employer] Work Phone: [facility] 10-25-2021 14:00-0400 Respiratory rate 16 /min Wilfred Martinez APRN.[employer] Work Phone: [facility] 10-25-2021 14:00-0400 SaO2% (BldA) [Mass fraction] 97 % Wilfred Martinez APRN.[employer] Work Phone: [facility] 09-05-2021 15:03-0500 Body temperature 98.71 [degF] Chair Roman Work Phone: [facility] 09-05-2021 15:03-0500 Diastolic blood pressure 69 mm[Hg] Chair Roman Work Phone: [facility] 09-05-2021 15:03-0500 Heart rate 70 /min Chair Roman Work Phone: [facility] 09-05-2021 15:03-0500 Respiratory rate 20 /min Chair Roman Work Phone: [facility] 09-05-2021 15:03-0500 SaO2% (BldA) [Mass fraction] 98 % Chair Roman Work Phone: [facility] 09-05-2021 15:03-0500 Systolic blood pressure 118 mm[Hg] Chair Rmoan Work Phone: [facility] Encounters Encounter Date Encounter Type Care Provider Facility Start: 04-05-2024 ambulatory Jacquelin Barton Facility :[facility] [place] Start: 04-02-2024 ambulatory Elnea Rashid ty:[facility] [place] Start: 01-20-2024 End: 01-20-2024 ambulatory [facility] Work Phone: Start: 01-20-2024 End: 01-20-2024 Patient encounter procedure [facility] Work Phone: Start: 01-15-2024 ambulatory Jacquelin Barton Facility :[facility] [place] Start: 01-15-2024 End: 01-15-2024 ambulatory [facility] Start: 01-06-2024 End: 01-06-2024 ambulatory OUMOU MANDEL Facility:[facility] Start: 01-06-2024 End: 01-06-2024 Patient encounter procedure Oumou Mandel MD Work Phone: Otolaryngology Comment on above: Epistaxis (Primary D x) Start: 11-26-2023 End: 11-26-2023 ambulatory Rowdy Crawford DO Work Phone: [facility] Start: 11-26-2023 End: 11-26-2023 Office outpatient new 60 minutes Rowdy Crawford DO Work Phone: [facility] Comment on above: CKD (chronic kidney disease) stage 4, GFR 15-29 ml/min ([facility]) (Primary Dx) Start: 11-11-2023 End: 11-11-2023 ambulatory MD Jacquelin Barton Work Phone: [facility] Work Phone: Start: 11-11-2023 End: 11-11-2023 Patient encounter procedure MD Jacquelin Barton Work Phone: [facility] Ne[facility] [place] Work Phone: Start: 11-04-2023 End: 11-04-2023 ambulatory SANTANA PHILLIPS Not Available Start: 10-27-2023 End: 10-27-2023 ambulatory CURT FARAH Facility:[facility] Start: 10-27-2023 End: 10-27-2023 Patient encounter procedure Curt Farah MD Work Phone: Otolaryngology Comment on above: Oxygen deficit (Prim maykel Dx); Epistaxis; MDS (myelodysplastic syndrome) ([facility]) Start: 10-22-2023 End: 10-22-2023 ambulatory BERNARDA H TIMMIS Not Available Start: 10-21-2023 End: 10-24-2023 Pre-admission assessment Bernarda Olveramis [facility] Start: 10-21-2023 End: 10-21-2023 Emergency department patient visit DEACON [facility] Start: 10-20-2023 End: 10-20-2023 ambulatory BERNARDA H TIMMIS Not Available Start: 10-17-2023 End: 10-17-2023 Emergency department patient visit Caryl Marie Facility:[facility] Start: 10-17-2023 End: 10-17-2023 Emergency department patient visit MD Jacquelin Barton Work Phone: [facility] Work Phone: Start: 10-13-2023 End: 10-14-2023 ambulatory Jacquelin Barton Facility:[facility] Start: 10-10-2023 End: 10-10-2023 ambulatory KAREN [facility] Start: 10-06-2023 End: 10-06-2023 ambulatory BERNARDA HYDE Not Available Start: 09-29-2023 End: 09-29-[address] [facility] Start: 09-22-2023 End: 09-23-2023 ambulatory Jacquelin Barton Facility:[facility] Start: 08-29-2023 End: 08-29-[address] [facility] Start: 08-19-2023 End: 08-20-2023 ambulatory VAISHALI Valentin [facility] Start: 07-17-2023 End: 07-17-2023 ambulatory RAYO [facility] Start: 07-15-2023 End: 07-16-2023 ambulatory Jacquelin Barton Facility:[facility] Start: 07-11-2023 End: 08-11-2023 ambulatory Jacquelin Barton Facility:[id number] Start: 04-16-2023 End: 04-17-2023 ambulatory Jacquelin Barton Facility:[facility] Start: 03-17-2023 ambulatory Jacquelin Barton Facility :[facility] Start: 03-14-2023 End: 03-14-[address] [facility] Start: 03-11-2023 End: 03-12-2023 ambulatory nicholas Lu Facility:[facility] Start: 03-11-2023 End: 03-12-2023 ambulatory Jacquelin Barton Facility:[facility] Start: 03-11-2023 End: 03-11-2023 Patient encounter procedure d Lyle Lu [facility] Start: 03-10-2023 End: 03-11-2023 ambulatory Jacquelin Keke Barton Facility:[facility] Start: 02-13-2023 End: 02-14-2023 ambulatory Jacquelin Barton Facility:[facility] Start: 01-10-2023 End: 01-11-2023 ambulatory APPAREL MANAGER Malinda L Earl Facility:[facility] Start: 01-10-2023 End: 01-11-2023 ambulatory Jacquelin Barton Facility:[facility] Start: 01-10-2023 End: 01-10-2023 Lab Drop off Malinda L Earl [facility] Start: 01-10-2023 End: 01-10-2023 Lab Drop off Jacquelin Barton [facility] Start: 01-06-2023 End: 01-07-2023 ambulatory Jacquelin Barton Facility:[facility] Start: 01-06-2023 End: 01-07-2023 ambulatory Jacquelin Barton Facility:[facility] Start: 12-30-2022 Refill Oumou Mandel MD Work Phone: Otolaryngology Comment on above: Refill Request Start: 12-10-2022 End: 12-25-[address] FLASH PEARL . Facility: Start: 12-04-2022 End: 12-24-[address] FLASH PEARL . Facility:[facility] Start: 12-03-2022 End: 12-04-[address] FLASH PEARL . Facility: Start: 11-20-2022 End: 11-20-2022 Office outpatient visit [...] Start: 11-20-2022 End: 11-21-2022 ambulatory FLASH PEARL Facility:[facility] Start: 11-20-2022 Telephone encounter Angle parmar RN Work Phone: Hematology/Oncology Comment on above: Care Coordination (H ospice/Treatment Update) Start: 11-19-2022 Telephone encounter Angle parmar RN Work Phone: Hematology/Oncology Comment on above: Care Coordination (P t Update) Start: 11-14-2022 End: 11-17-2022 Evaluation and management of inpatient MARICRUZ BOGGS . Facility:[facility] Start: 11-06-2022 End: 11-13-[address] DOCTOR TOM Facility: Start: 11-06-2022 Patient encounter procedure [facility] Provider [facility] Department Start: 11-06-2022 Telephone encounter Asher frances MD Work Phone: Cancer [facility] Comment on above: Results Care Coordination (C BC Results) Start: 10-30-2022 End: 10-30-2022 ambulatory Chair Billy Owens Work Phone: Hematology/Oncology Comment on above: Anemia of chronic re nal failure, stage 4 (severe) (HCC) (Primary Dx); Iron deficiency anemia due to chronic blood loss; MDS (myelodysplastic syndrome) (HCC) Start: 10-25-2022 Patient encounter procedure [facility] Provider [facility] Department Start: 10-25-2022 End: 10-25-[address] DOCTOR TOM Facility:[facility] Start: 10-24-2022 Telephone encounter Angle parmar RN Work Phone: Hematology/Oncology Comment on above: Care Coordination (C BC Results; Transfusion) Start: 10-23-2022 End: 10-23-2022 ambulatory [facility] Work Phone: Hematology/Oncology Comment on above: MDS (myelodysplastic syndrome) (HCC) (Primary Dx) Start: 10-17-2022 Patient encounter procedure [facility] Provider [facility] Department Start: 10-17-2022 Telephone encounter Angle parmar RN Work Phone: Hematology/Oncology Comment on above: Care Coordination (T ransfusion Orders) Start: 10-16-2022 End: 10-16-2022 ambulatory Lab/[facility] [place] Work Phone: Hematology/Oncology Comment on above: MDS (myelodysplastic syndrome) (HCC) (Primary Dx); Anemia of chronic renal failure, stage 4 (severe) (HCC) Start: 10-16-2022 Patient encounter procedure [facility] Provider [facility] Department Start: 10-15-2022 End: 10-15-2022 ambulatory Kim López MD Work Phone: Hematology/Oncology Comment on above: MDS (myelodysplastic syndrome) (HCC) (Primary Dx); Anemia, unspecified type Start: 10-15-2022 End: 10-15-2022 Patient encounter procedure Kim López MD Work Phone: [facility] Start: 10-09-2022 End: 10-09-2022 ambulatory Chair 19 [place] Work Phone: Hematology/Oncology Comment on above: MDS (myelodysplastic syndrome) (HCC) (Primary Dx); Anemia of chronic renal failure, stage 4 (severe) (HCC); Iron deficiency anemia due to chronic blood loss Start: 10-03-2022 Patient encounter procedure [facility] Provider [facility] Department Start: 10-02-2022 Telephone encounter Asher frances MD Work Phone: [facility] Comment on above: Future Appointment Start: 09-25-2022 End: 10-17-[address] DOCTOR TAYLOR Facility: Start: 09-25-2022 Telephone encounter Angle parmar RN [...] Start: 09-12-2022 Patient encounter procedure [facility] Provider [facility] Department Start: 09-11-2022 Telephone encounter Angle parmar RN Work Phone: Hematology/Oncology Comment on above: Care Coordination (C BC Results) Start: 09-05-2022 End: 09-13-[address] [facility] Facility: Start: 09-04-2022 Patient encounter procedure [facility] Provider [facility] Start: 09-04-2022 Telephone encounter Asher frances MD Work Phone: [facility] Comment on above: Future Appointment Start: 08-28-2022 End: 08-28-2022 ambulatory Chair Billy Owens Work Phone: Hematology/Oncology Comment on above: Myelodysplastic synd sommer (HCC) (Primary Dx) Start: 08-28-2022 End: 08-28-2022 Office outpatient visit 25 minutes Asher Hummel MD Work Phone: Hematology/Oncology Comment on above: MDS (myelodysplastic syndrome) (HCC) (Primary Dx); Anemia of chronic renal failure, stage 4 (severe) (HCC) Start: 08-26-2022 Telephone encounter Angle parmar RN Work Phone: Hematology/Oncology Comment on above: Care Coordination (M edication Authorization) Start: 08-22-2022 Patient encounter procedure [facility] Provider [facility] Department Start: 08-22-2022 Telephone encounter Angle parmar RN Work Phone: Hematology/Oncology Comment on above: Care Coordination (T ransfusion Question) Start: 08-21-2022 Telephone encounter Wilfred smith APRN.FRINGE WEAVER Work Phone: [facility] Comment on above: Future Appointment Start: 08-21-2022 [...] encounter Wilfred smith APRN.CNP Work Phone: [facility] Comment on above: Future Appointment Care Coordination [...] Start: 08-08-2022 Patient encounter procedure [facility] Provider [facility] Department Start: 08-08-2022 End: 08-22-[address] [facility] Facility: Start: 08-07-2022 End: 08-07-2022 ambulatory Chair [...] transfusions; Myelodysplastic syndrome (HCC) Start: 07-30-2022 End: 07-30-2022 ambulatory Radha Sandoval PA-C Work Phone: Hematology/Oncology [...] Critical Results Start: 07-23-2022 End: 07-23-2022 ambulatory Chair 17 [place] Work Phone: Hematology/Oncology Comment on above: Myelodysplastic synd sommer (HCC) (Primary Dx) MDS (myelodysplastic syndrome) (HCC) (Primary Dx); 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 transfusions; Anemia of chronic renal failure, stage 4 (severe) (HCC); Myelodysplastic syndrome (HCC) Start: 07-23-2022 End: 07-23-2022 Patient encounter procedure [facility] Provider [facility] Department Start: 07-23-2022 Telephone encounter Asher frances MD [facility] Comment on above: Transfusion Start: 07-18-2022 Telephone encounter Angle Kamara Hematology/Oncology Comment on above: Care Coordination (O xygen Question) Start: 07-16-2022 End: 07-16-2022 ambulatory Kim López MD Work Phone: Hematology/Oncology Comment on above: MDS (myelodysplastic syndrome) (HCC) (Primary Dx) Start: 07-16-2022 End: 07-16-2022 Patient encounter procedure Kim López MD Work Phone: [facility] Start: 07-15-2022 Telephone encounter Asher frances MD Work Phone: [facility] [address] Comment on above: Future Appointment Start: 07-15-2022 [...] encounter procedure Asher Hummel MD Work Phone: [place] Start: 07-11-2022 Telephone encounter Angle Kamara Hematology/Oncology Comment on above: Care Coordination (C BC Results) Start: 07-09-2022 End: 07-09-2022 ambulatory Chair 18 Roman Work Phone: Hematology/Oncology Comment on above: Myelodysplastic synd sommer (HCC) (Primary Dx) Start: 07-09-2022 Patient encounter procedure [facility] Provider [facility] Start: 07-08-2022 End: 07-25-[address] RADHA SANDOVAL Facility: Start: 07-08-2022 End: 07-08-2022 ambulatory Radha LUCEROC Work Phone: Hematology/Oncology Comment on above: MDS [...] 07-08-2022 End: 07-08-2022 Patient encounter procedure Radha LUCEROC Work Phone: [facility] Start: 07-08-2022 Telephone encounter Radha calzada PA-C [facility] Phone: [facility] Comment on above: Transfusion Start: 07-02-2022 End: 07-02-2022 ambulatory Chair 18 Roman Work Phone: Hematology/Oncology Comment on above: Myelodysplastic synd sommer (HCC) (Primary Dx) Start: 07-01-2022 End: 07-01-2022 ambulatory Asher Hummel [...] MD Work Phone: [facility] Start: 06-25-2022 End: 06-25-2022 ambulatory Chair 17 Roman Work Phone: Hematology/Oncology Comment on above: Myelodysplastic synd sommer (HCC) (Primary Dx) Start: 06-24-2022 End: 06-24-2022 ambulatory Chair 13 [...] APRN.CNP Work Phone: [facility] Start: 06-18-2022 End: 06-18-2022 ambulatory Chair 9 Roman Work Phone: Hematology/Oncology Comment on above: Myelodysplastic synd sommer (HCC) (Primary Dx) Start: 06-17-2022 End: 06-17-2022 Patient encounter procedure Asher Hummel MD Work Phone: [facility] Start: 06-17-2022 Telephone encounter Asher frances MD [facility]: [facility] Comment on above: Future Appointment Start: 06-17-2022 End: 06-17-2022 ambulatory Asher Hummel MD Work Phone: Hematology/Oncology Comment on above: Myelodysplastic synd sommer (HCC) (Primary Dx); 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 transfusions; CRF (chronic renal failure), stage 4 (severe) (HCC); CKD (chronic kidney disease) stage 4, GFR 15-29 ml/min (HCC) Start: 06-11-2022 End: 06-11-2022 ambulatory Chair 18 Roman Work Phone: Hematology/Oncology Comment on above: Myelodysplastic synd sommer (HCC) (Primary Dx) Start: 06-10-2022 End: 06-10-2022 ambulatory Chair 17 Roman Work Phone: Hematology/Oncology [...] End: 06-10-2022 Patient encounter procedure [facility] Provider [facility] Start: 06-07-2022 Telephone encounter Asher frances MD Work Phone: Hematology/Oncology Comment on above: Critical Results Start: 06-04-2022 Patient encounter procedure [facility] Provider [facility] Start: 06-04-2022 End: 06-26-[address] DOCTOR TOM Facility:[facility] Start: 06-03-2022 Telephone encounter Asher frances MD Work Phone: 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) Start: 06-03-2022 End: 06-03-2022 Patient encounter procedure Asher Hummel MD Work Phone: [facility] Start: 05-28-2022 End: 05-28-2022 ambulatory Chair 17 Roman Work Phone: Hematology/Oncology Comment on above: Myelodysplastic synd sommer (HCC) (Primary Dx) Start: 05-27-2022 End: 05-27-2022 ambulatory Chair 17 Roman Work Phone: Hematology/Oncology [...] Treatment Call) Start: 05-23-[address] [facility] Facility : Start: 05-21-2022 Patient encounter procedure [facility] Provider [facility] Start: 05-21-2022 End: 05-21-2022 ambulatory Chair 18 Roman Work Phone: Hematology/Oncology Comment on above: Myelodysplastic synd sommer (HCC) (Primary Dx) Start: 05-20-2022 End: 05-20-2022 ambulatory Chair 17 Roman Work Phone: Hematology/Oncology [...] encounter procedure Asher Hummel MD Work Phone: [facility] Start: 05-20-2022 Telephone encounter Asher frances MD Work Phone: [facility] Comment on above: Future Appointment Care Coordination (A ntiemetics) Start: 05-14-2022 Telephone encounter Angle Kamara Hematology/Oncology Comment on above: Care Coordination (T reatment Planning) Start: 05-13-2022 End: 05-13-2022 ambulatory Lab/[facility] [place] Work Phone: Hematology/Oncology Comment on above: CRF (chronic renal f ailure), stage 4 (severe) (HCC) (Primary Dx); Anemia of chronic renal failure, stage 4 (severe) (HCC); Iron deficiency anemia due to chronic blood loss; CKD (chronic kidney disease) stage 4, GFR 15-29 ml/min (HCC); Myelodysplastic syndrome (HCC) Start: 05-07-2022 Patient encounter procedure [facility] Provider [facility] Start: 05-07-2022 End: 05-24-[address] [facility] Facility: Start: 05-06-2022 End: 05-06-2022 ambulatory Lab/[facility] [...] encounter Asher frances MD Work Phone: [facility] Comment on above: Transfusion Start: 04-29-2022 Telephone encounter Angle Kamara Hematology/Oncology Comment on above: Care Coordination (F oundation One Question) Start: 04-29-2022 End: 04-29-2022 ambulatory Asher Hummel MD Work Phone: Hematology/Oncology [facility] Start: 04-25-2022 End: 04-25-2022 ambulatory Asher Hummel MD Work Phone: Hematology/Oncology Comment on above: Myelodysplastic synd sommer (HCC) (Primary Dx); CRF (chronic renal failure), stage 4 (severe) (HCC) Start: 04-23-2022 Telephone encounter Radha calzada PA-C Work Phone: Hematology/Oncology Comment on above: Patient Update Start: 04-22-2022 End: 04-23-[address] RADHA SANDOVAL Facility:[facility] Start: 04-18-2022 End: 04-18-2022 ambulatory Kim López MD Work Phone: Hematology/Oncology Comment on above: MDS (myelodysplastic syndrome) (HCC) (Primary Dx) Start: 04-18-2022 End: 04-18-2022 Patient encounter procedure Kim López MD Work Phone: [facility] Start: 04-15-2022 End: 04-15-2022 ambulatory Lab/[facility] [place] Work Phone: Hematology/Oncology Comment on above: Malignant neoplasm o f prostate (HCC) (Primary Dx) Start: 04-15-2022 Telephone encounter Asher frances MD Work Phone: Hematology/Oncology Comment on above: Results (CBC/) Start: 04-08-2022 End: 04-08-2022 ambulatory Lab/[facility] [...] End: 04-08-2022 Patient encounter procedure [facility] Provider [facility] Start: 04-03-2022 End: 04-04-[address] WILFRED MARTINEZ Facility: Start: 04-03-2022 Patient encounter procedure [facility] Provider [facility] Start: 04-03-2022 Telephone encounter Fide Fields Hematology/Oncology Comment on above: Results Start: 04-02-2022 Telephone encounter Asher frances MD Work Phone: [facility] Comment on above: Results Future Appointment Start: 03-25-2022 End: 03-25-2022 ambulatory Lab/[facility] Work Phone: Hematology/Oncology [...] esults) Care Coordination (R eferral) Start: 03-18-2022 Telephone encounter Asher frances MD Work Phone: [facility] Comment on above: Care Coordination (L ab results/) Start: 03-15-2022 End: 03-15-2022 ambulatory Chair Billy Owens Work Phone: Hematology/Oncology Comment on above: Myelodysplastic synd sommer (HCC) (Primary Dx) Start: 03-14-2022 Telephone encounter Angle parmar RN Work Phone: Hematology/Oncology Comment on above: Care Coordination (A ppointment) Start: 03-14-2022 End: 03-14-2022 ambulatory Chair 17 Roman Work Phone: Hematology/Oncology Comment on above: Myelodysplastic synd sommer (HCC) (Primary Dx) Start: 03-13-2022 End: 03-13-2022 ambulatory Chair 17 Roman Work Phone: Hematology/Oncology Comment on above: Myelodysplastic synd sommer (HCC) (Primary Dx) Start: 03-12-2022 Patient encounter procedure [facility] Provider [facility] Start: 03-11-2022 End: 03-11-2022 ambulatory Chair [...] encounter procedure Asher Hummel MD Work Phone: [facility] Start: 03-11-2022 Telephone encounter Asher frances MD Work Phone: [facility] Comment on above: Future Appointment Start: 02-28-2022 End: 03-27-[address] [facility] Facility: Start: 02-28-2022 Telephone encounter Asher frances MD Work Phone: [facility] Comment on above: Transfusion Start: 02-25-2022 End: 02-25-2022 ambulatory Lab/[facility] Work Phone: Hematology/Oncology Comment on above: CRF (chronic renal f ailure), stage 4 (severe) (HCC) (Primary Dx); Anemia of chronic renal failure, stage 4 (severe) (HCC); Iron deficiency anemia due to chronic blood loss; CKD (chronic kidney disease) stage 4, GFR 15-29 ml/min (HCC); Myelodysplastic syndrome (HCC) Start: 02-15-2022 End: 02-15-2022 ambulatory Chair 17 [...] sommer (HCC) (Primary Dx) Start: 02-12-2022 End: 02-12-2022 ambulatory Chair 17 Roman Work Phone: Hematology/Oncology [...] encounter procedure Radha Sandoval PA-C Work Phone: [facility] Start: 02-04-2022 End: 02-05-[address] NONE LISTED REQUEST Facility: Start: 02-04-2022 Telephone encounter Asher frances MD Work Phone: [facility] Comment on above: Future Appointment Care Coordination (C ritical Results) Start: 02-04-2022 End: 02-04-2022 ambulatory Lab/[facility] [place] Work Phone: Hematology/Oncology Comment on above: Anemia of chronic re nal failure, stage 4 (severe) (HCC) (Primary Dx) Start: 01-30-2022 End: 01-30-2022 ambulatory Lab/[facility] [place] Work Phone: Hematology/Oncology Comment on above: CRF [...] Start: 01-18-2022 End: 01-18-2022 ambulatory Chair 17 [employer] Work Phone: Hematology/Oncology Comment on above: CRF (chronic renal f ailure), stage 4 (severe) (HCC) (Primary Dx); Myelodysplastic syndrome (HCC) Start: 01-17-2022 End: 01-17-2022 ambulatory Chair 17 [employer] Work Phone: Hematology/Oncology Comment on above: Myelodysplastic synd sommer (HCC) (Primary Dx) Start: 01-16-2022 End: 01-16-2022 ambulatory Chair 17 [employer] Work Phone: Hematology/Oncology Comment on above: Myelodysplastic synd sommer (HCC) (Primary Dx) Start: 01-15-2022 End: 01-16-2022 ambulatory Chair 17 [employer] Work Phone: Hematology/Oncology Comment on above: Myelodysplastic synd sommer (HCC) (Primary Dx) Start: 01-15-2022 Patient encounter procedure [facility] Provider [facility] Start: 01-14-2022 Telephone encounter Asher frances MD Work Phone: [facility] Comment on above: Future Appointment Lab Orders Start: 01-14-2022 End: 01-14-2022 ambulatory Chair 18 [employer] Work Phone: Hematology/Oncology Comment on above: Myelodysplastic [...] encounter procedure Asher Hummel MD Work Phone: [facility] Start: 01-07-2022 End: 01-07-2022 Nursing evaluation of patient and report Ma Nurse Sam Bray Work Phone: Hematology/Oncology Comment on above: Anemia of chronic re nal failure, stage 4 (severe) (HCC) (Primary Dx); Iron deficiency anemia due to chronic blood loss; Myelodysplastic syndrome (HCC) Start: 01-01-2022 Telephone encounter Miriam Elizabeth RN Hematology/Oncology Comment on above: B12 injections Start: 12-21-2021 End: 12-21-2021 ambulatory Chair [place] Work Phone: Hematology/Oncology Comment on above: Myelodysplastic synd sommer (HCC) (Primary Dx) Start: 12-20-2021 End: 12-20-2021 ambulatory Chair 17 [place] Work Phone: Hematology/Oncology Comment on above: Myelodysplastic synd sommer (HCC) (Primary Dx) Start: 12-19-2021 End: 12-19-2021 ambulatory Chair [place] Work Phone: Hematology/Oncology Comment on above: Myelodysplastic synd sommer (HCC) (Primary Dx) Start: 12-17-2021 End: 12-17-2021 ambulatory Chair 17 [employer] Phone: Hematology/Oncology Comment on above: Myelodysplastic synd [...] Evaluation and management of inpatient KELSEY RAMIREZ Facility:[facility] Start: 11-16-2021 Patient encounter procedure [facility] Provider [facility] Start: 11-16-2021 Telephone encounter Angle parmar [...] Start: 10-30-2021 End: 10-30-2021 ambulatory Chair 17 [employer] Work Phone: Hematology/Oncology Comment on above: Myelodysplastic synd sommer (HCC) (Primary Dx) Start: 10-29-2021 End: 10-29-2021 ambulatory Chair 18 [place] Work Phone: Hematology/Oncology Comment on above: Myelodysplastic synd sommer (HCC) (Primary Dx) Start: 10-29-2021 Telephone encounter Angle parmar RN Work Phone: Hematology/Oncology Comment on above: Care Coordination (T ransfusion Update) Start: 10-26-2021 Patient encounter procedure [facility] Provider [facility] Start: 10-25-2021 End: 10-25-2021 ambulatory Lab/Port [...] 10-25-2021 End: 10-25-2021 Patient encounter procedure Wilfred Michelle CHOUDHURYFRINGE WEAVER Work Phone: [facility] Start: 10-15-2021 End: 10-15-2021 Patient encounter procedure Oumou Mandel MD Work Phone: Otolaryngology Comment on above: Chronic Eustachian t ube dysfunction, bilateral (Primary Dx); Epistaxis Start: 09-05-2021 End: 09-05-2021 ambulatory Chair 18 Roman Work Phone: Hematology/Oncology Comment on above: Myelodysplastic synd sommer (HCC) (Primary Dx) Start: 05-29-2020 End: 05-29-2020 Patient encounter procedure External Provider [facility] Start: 05-29-2020 Results Only External Provider Exter nal-Non[facility]F Start: 06-23-2018 End: 06-24-2018 Patient encounter procedure Evette Sheriff Facility:[facility] Start: 06-11-2018 End: 06-12-2018 Patient encounter procedure Evette Sheriff Facility:[facility] Start: 05-28-2018 End: 05-29-2018 Patient encounter procedure MYLENE ANDREW Facility:[facility] Procedures Date Procedure Procedure Detail Performing Clinician Start: 11-26-2023 Urnls dip stick/tabl et rgnt auto w/o microscopy Bulk Order Provider Start: 11-14-2022 Transfusion of Nonautologous Red Blood Cells into Peripheral Vein, Percutaneous Approach [facility] Start: 05-27-2022 CBC + DIFF Asher frances [...] on above: Performed By: #### [id number] ####[place] [id number] [facility] [address] Start: 11-01-2021 Blood count complete auto&auto difrntl wbc Asher Hummel MD Work Phone: Start: 05-29-2020 EXTERNAL IMAGING [employer] al Provider Start: 05-29-2020 End: 05-29-2020 EXTERNAL LAB External Provider Start: 05-29-2020 EXTERNAL PROCEDURE Exte rnal Provider Start: 10-23-2011 cysto/ud, bilateral RG Pyelogram Jacquelin Barton Cataract care Jacquelin Barton Placement of stent i n cardiac conduit Jacquelin Barton Comment on above: 2x Plan of Treatment Date Care Activity Detail Author Start: 11-20-2025 DIABETES SCREEN DIABETES SCREEN [facility] Start: 11-06-2025 DIABETES SCREEN DIABETES SCREEN [facility] Start: 10-30-2025 DIABETES SCREEN DIABETES SCREEN [facility] Start: 10-23-2025 DIABETES SCREEN DIABETES SCREEN [facility] Start: 10-16-2025 DIABETES SCREEN DIABETES SCREEN [facility] Start: 10-02-2025 DIABETES SCREEN DIABETES SCREEN [facility] Start: 09-25-2025 DIABETES SCREEN DIABETES SCREEN [facility] Start: 09-18-2025 DIABETES SCREEN DIABETES SCREEN [facility] Start: 09-11-2025 DIABETES SCREEN DIABETES SCREEN [facility] [...] Clinic Start: 01-21-2025 DIABETES SCREEN DIABETES SCREEN [facility] Start: 01-18-2025 DIABETES SCREEN DIABETES SCREEN [facility] Start: 01-14-2025 DIABETES SCREEN DIABETES SCREEN [facility] Start: 01-07-2025 DIABETES SCREEN DIABETES SCREEN [facility] Start: 01-07-2025 End: 01-07-2025 Patient encounter procedure 01/07/2025 12:45 PM EDT Office Visit Otolaryngology [address] [place] [address] Curt Farah MD [address] [place] [address] 1 yr follow up Otolaryngology Comment on above: 1 yr follow up Start: 12-21-2024 DIABETES SCREEN DIABETES SCREEN [facility] Start: 12-17-2024 DIABETES SCREEN DIABETES SCREEN [facility] Start: 11-29-2024 DIABETES SCREEN DIABETES SCREEN [facility] Start: 11-15-2024 DIABETES SCREEN DIABETES SCREEN [facility] Start: 11-08-2024 DIABETES SCREEN DIABETES SCREEN [facility] Start: 11-01-2024 DIABETES SCREEN DIABETES SCREEN [facility] Start: 10-25-2024 DIABETES SCREEN DIABETES SCREEN [facility] Start: 10-11-2024 DIABETES SCREEN DIABETES SCREEN [facility] Start: 09-03-2024 DIABETES SCREEN DIABETES SCREEN [facility] Start: 02-27-2024 End: 02-27-2024 Patient encounter procedure 02/27/2024 2:00 PM EDT Office Visit [facility] [address] [place] [address] [place] [address] [place] [address] Return in [address] Crawford [facility] Comment on above: Return in [address] Crawford Start: 01-06-2024 End: 01-06-2024 Patient encounter procedure 01/06/2024 12:45 PM EDT Office Visit Otolaryngology [address] [place] [address] [place] [address] [place] [address] Return in about 6 weeks (around 12/08/2023). Otolaryngology Comment on above: Return in about 6 weeks (around 4). Start: 12-10-2023 End: 03-10-2024 Basic metabolic 2000 panel - Serum or Plasma BASIC METABOLIC PANEL Lab Routine CKD (chronic kidney disease) stage 4, GFR 15-29 ml/min (HCC) Expected: 12/10/2023, Expires: 03/10/2024 [facility] Work Phone: Comment on above: Expected: 12/10/2023, Expires: 4 Start: 12-08-2023 End: 03-08-2024 Magnesium [Mass/volume] in Serum or Plasma MAGNESIUM Lab Routine CKD (chronic kidney disease) stage 4, GFR 15-29 ml/min (HCC) Expected: 12/08/2023, Expires: 03/08/2024 [facility] Comment on above: Expected: 12/08/2023, Expires: Start: 10-17-2023 [facility] Start: 07-28-2023 Advance Directive Discussion Advance Directive Discussion [facility] Start: 07-28-2023 Behavioral Health Screening Behavioral Health Screening [facility] Start: 07-28-2023 Depression Assessment Depression Assessment [facility] Start: 03-28-2023 Covid-19 Vaccine () Covid-19 Vaccine () [facility] Start: 08-14-2022 End: 10-14-2022 Hematocrit [Volume Fraction] of Blood HEMATOCRIT (HCT) Lab Routine Myelodysplastic syndrome (HCC) Expected: 08/14/2022, Expires: 10/14/2022 [facility] Work Phone: Comment on above: Expected: 08/14/2022, Expires: 3 Start: 08-14-2022 End: 10-14-2022 Hemoglobin [Mass/volume] in Blood HEMOGLOBIN (HGB) Lab Routine Myelodysplastic syndrome (HCC) Expected: 08/14/2022, Expires: 10/14/2022 [facility] Work Phone: Comment on above: Expected: 08/14/2022, Expires: 3 Start: 08-13-2022 End: 10-13-2022 CBC W Auto Differential panel - Blood CBC + DIFF Lab Routine Iron deficiency anemia due to chronic blood loss Expected: 08/13/2022, Expires: 10/13/2022 [facility] Work Phone: Comment on above: Expected: 08/13/2022, Expires: 3 Start: 08-13-2022 End: 10-13-2022 Comprehensive metabolic 2000 panel - Serum or Plasma COMP METABOLIC PANEL Lab Routine Iron deficiency anemia due to chronic blood loss Expected: 08/13/2022, Expires: 10/13/2022 [facility] Work Phone: Comment on above: Expected: 08/13/2022, Expires: 3 Start: 08-13-2022 End: 10-13-2022 Lactate dehydrogenase [Enzymatic activity/volume] in Serum or Plasma LD LACTATE DEHYDRO Lab Routine Iron deficiency anemia due to chronic blood loss Expected: 08/13/2022, Expires: 10/13/2022 [facility] Work Phone: Comment on above: Expected: 08/13/2022, Expires: 3 Start: 07-30-2022 End: 09-29-2022 CBC W Auto Differential panel - Blood CBC + DIFF Lab Routine MDS (myelodysplastic syndrome) (HCC) Anemia of chronic renal failure, stage 4 (severe) (HCC) CRF (chronic renal failure), stage 4 (severe) (HCC) Expected: 07/30/2022, Expires: 09/29/2022 [facility] Work Phone: Comment on above: Expected: 07/30/2022, Expires: 3 Start: 07-30-2022 End: 09-29-2022 Comprehensive metabolic 2000 panel - Serum or Plasma COMP METABOLIC PANEL Lab Routine MDS (myelodysplastic syndrome) (HCC) Anemia of chronic renal failure, stage 4 (severe) (HCC) CRF (chronic renal failure), stage 4 (severe) (HCC) Expected: 07/30/2022, Expires: 09/29/2022 [facility] Work Phone: Comment on above: Expected: 07/30/2022, Expires: 3 Start: 07-28-2022 ADVANCE DIRECTIVE DISCUSSION ADVANCE DIRECTIVE DISCUSSION [facility] Start: 07-28-2022 DEPRESSION ASSESSMENT DEPRESSION ASSESSMENT [facility] Start: 07-08-2022 End: 09-07-2022 CBC W Auto Differential panel - Blood CBC + DIFF Lab Routine MDS (myelodysplastic syndrome) (HCC) CRF (chronic renal failure), stage 4 (severe) (HCC) Expected: 07/08/2022, Expires: 09/07/2022 [facility] Work Phone: Comment on above: Expected: 07/08/2022, Expires: 3 Start: 07-08-2022 End: 09-07-2022 Comprehensive metabolic 2000 panel - Serum or Plasma COMP METABOLIC PANEL Lab Routine MDS (myelodysplastic syndrome) (HCC) CRF (chronic renal failure), stage 4 (severe) (HCC) Expected: 07/08/2022, Expires: 09/07/2022 [facility] Work Phone: Comment on above: Expected: 07/08/2022, Expires: 3 Start: 06-24-2022 End: 08-24-2022 CBC W Auto Differential panel - Blood CBC + DIFF Lab Routine MDS (myelodysplastic syndrome) (HCC) CRF (chronic renal failure), stage 4 (severe) (HCC) Anemia of chronic renal failure, stage 4 (severe) (HCC) Expected: 06/24/2022, Expires: 08/24/2022 [facility] Work Phone: Comment on above: Expected: 06/24/2022, Expires: 3 Start: 06-24-2022 End: 08-24-2022 Comprehensive metabolic 2000 panel - Serum or Plasma COMP METABOLIC PANEL Lab Routine MDS (myelodysplastic syndrome) (HCC) CRF (chronic renal failure), stage 4 (severe) (HCC) Anemia of chronic renal failure, stage 4 (severe) (HCC) Expected: 06/24/2022, Expires: 08/24/2022 [facility] Work Phone: Comment on above: Expected: 06/24/2022, Expires: 3 Start: 06-10-2022 End: 08-10-2022 CBC W Auto Differential panel - Blood CBC + DIFF Lab Routine MDS (myelodysplastic syndrome) (HCC) Expected: 06/10/2022, Expires: 08/10/2022 [facility] Work Phone: Comment on above: Expected: 06/10/2022, Expires: 3 Start: 06-10-2022 End: 08-10-2022 Comprehensive metabolic 2000 panel - Serum or Plasma COMP METABOLIC PANEL Lab Routine MDS (myelodysplastic syndrome) (HCC) Expected: 06/10/2022, Expires: 08/10/2022 [facility] Work Phone: Comment on above: Expected: 06/10/2022, Expires: 3 Start: 04-25-2022 End: 06-25-2022 MISC SEND OUT TST 1 MISC SEND OUT TST 1 Lab Routine Myelodysplastic syndrome (HCC) Expected: 04/25/2022, Expires: 06/25/2022 [facility] Work Phone: Comment on above: Expected: 04/25/2022, Expires: 2 Start: 03-28-2022 Influenza vaccination INFLUENZA (#1) [facility] Start: 02-11-2022 End: 04-13-2022 CBC W Auto Differential panel - Blood CBC + DIFF Lab Routine Anemia of chronic renal failure, stage 4 (severe) (HCC) Myelodysplastic syndrome (HCC) Expected: 02/11/2022, Expires: 04/13/2022 [facility] Work Phone: Comment on above: Expected: 02/11/2022, Expires: 2 Start: 02-11-2022 End: 04-13-2022 Comprehensive metabolic 2000 panel - Serum or Plasma COMP METABOLIC PANEL Lab Routine Anemia of chronic renal failure, stage 4 (severe) (HCC) Myelodysplastic syndrome (HCC) Expected: 02/11/2022, Expires: 04/13/2022 [facility] Work Phone: Comment on above: Expected: 02/11/2022, Expires: Start: 12-02-2021 End: 11-29-2022 CBC W Auto Differential panel - Blood CBC + DIFF Lab Routine Myelodysplastic syndrome (HCC) CRF (chronic renal failure), stage 4 (severe) (HCC) Anemia of chronic renal failure, stage 4 (severe) (HCC) 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 transfusions Expected: 12/02/2021 (Approximate), Expires: 11/29/2022 [facility] Work Phone: Comment on above: Expected: 12/02/2021 (Approximate), Expi res: 11/29/2022 Start: 12-02-2021 End: 11-29-2022 Comprehensive metabolic 2000 panel - Serum or Plasma COMP METABOLIC PANEL Lab Routine Myelodysplastic syndrome (HCC) CRF (chronic renal failure), stage 4 (severe) (HCC) Anemia of chronic renal failure, stage 4 (severe) (HCC) 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 transfusions Expected: 12/02/2021 (Approximate), Expires: 11/29/2022 [facility] Work Phone: Comment on above: Expected: 12/02/2021 (Approximate), Expi res: 11/29/2022 Start: 07-28-2021 ADVANCE DIRECTIVE DISCUSSION ADVANCE DIRECTIVE DISCUSSION [facility] Start: 07-28-2021 DEPRESSION ASSESSMENT DEPRESSION ASSESSMENT [facility] Start: 03-28-2020 Influenza vaccination INFLUENZA (#1) [facility] Start: 05-08-2015 Pneumococcal Vaccine: 65+ (2 of 2 - PCV) Pneumococcal Vaccine: 65+ (2 of 2 - PCV) [facility] Start: 05-08-2015 PNEUMOCOCCAL: 65+ (3 - PCV) PNEUMOCOCCAL: 65+ (3 - PCV) [facility] Start: 06-27-2008 DIABETES SCREEN DIABETES SCREEN [facility] Start: 07-13-2007 PNEUMOVAX AGE 65 AND OVER WITH 5YR LOOKBACK (#1) PNEUMOVAX AGE 65 AND OVER WITH 5YR LOOKBACK (#1) [facility] Start: 06-27-2006 Hepatitis B surface antibody level LDL CHOLESTEROL [facility] Start: 12-06-2003 ADVANCE DIRECTIVE DISCUSSION ADVANCE DIRECTIVE DISCUSSION [facility] Start: 1998 RSV Vaccine (1 - 1-dose 60+ series) RSV Vaccine (1 - 1-dose 60+ series) [facility] Start: 1988 SHINGRIX VACCINE (1 of 2) SHINGRIX VACCINE (1 of 2) [facility] Start: 1957 SHINGRIX VACCINE (1 of 2) SHINGRIX VACCINE (1 of 2) [facility] Start: 1957 Urine microalbumin profile [facility] Start: 1948 3 comp foot exam completed DIABETIC FOOT EXAM [facility] Start: 1948 Diabetic foot examination Diabetic Foot Exam [facility] Start: 1948 Glaucoma screening Dilated Retinal Exam [facility] Start: 1948 Hepatitis B screening URINE ALBUMIN:CREATININE RATIO [facility] Start: 1948 Hepatitis C antibody, confirmatory test DILATED RETINAL EXAM [facility] Start: 12-06-1943 Hemoglobin A1c measurement HbA1C [facility] Start: 12-06-1943 Hemoglobin A1c/Hemoglobin.total in Blood HBA1C [facility] BONE MARROW ANALYSIS [facility] Work Phone: Comment on above: Ordered: 04/25/2022 BONE MARROW CHROMOSO ME ANAL [facility] Work Phone: Comment on above: Ordered: 04/25/2022 CBC W Auto Different ial panel - Blood CBC + DIFF Lab Routine Myelodysplastic syndrome (HCC) CRF (chronic renal failure), stage 4 (severe) (HCC) Anemia of chronic renal failure, stage 4 (severe) (HCC) 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 transfusions 01/21/2022 1:47 PM EDT [facility] Work Phone: CBC W Auto Different ial panel - Blood CBC + DIFF Lab Routine Myelodysplastic syndrome (HCC) CRF (chronic renal failure), stage 4 (severe) (HCC) 02/15/2022 1:31 PM EDT [facility] Work Phone: CBC W Auto Different ial panel - Blood CBC + DIFF Lab Routine Myelodysplastic syndrome (HCC) CRF (chronic renal failure), stage 4 (severe) (HCC) Ordered: 04/25/2022 [facility] Work Phone: Comment on above: Ordered: 04/25/2022 CBC W Auto Different ial panel - Blood CBC + DIFF Lab Routine Myelodysplastic syndrome (HCC) CRF (chronic renal failure), stage 4 (severe) (HCC) 05/27/2022 1:47 PM EDT [facility] Work Phone: End: 08-13-2023 CBC W Auto Differential panel - Blood CBC + DIFF Lab Routine Iron deficiency anemia due to chronic blood loss MDS (myelodysplastic syndrome) (HCC) Anemia of chronic renal failure, stage 4 (severe) (HCC) 2x per week for 100 Occurrences starting 08/13/2022 until 08/13/2023 [facility] Work Phone: Comment on above: 2x per week for 100 Occurrences starting 08/13/2022 until 08/13/2023 End: 08-13-2023 Comprehensive metabolic 2000 panel - Serum or Plasma COMP METABOLIC PANEL Lab Routine Iron deficiency anemia due to chronic blood loss MDS (myelodysplastic syndrome) (HCC) Anemia of chronic renal failure, stage 4 (severe) (HCC) 2x per week for 100 Occurrences starting 08/13/2022 until 08/13/2023 [facility] Work Phone: Comment on above: 2x per week for 100 Occurrences starting 08/13/2022 until 08/13/2023 DNA EXTRACTION BONE MARROW (BUFFY COAT) [facility] Work Phone: Comment on above: Ordered: 04/25/2022 FLOW CYTOMETRY BONE MARROW HOLD (BMHOLD) FLOW CYTOMETRY BONE MARROW HOLD (BMHOLD) Lab Routine Myelodysplastic syndrome (HCC) CRF (chronic renal failure), stage 4 (severe) (HCC) Ordered: 04/25/2022 [facility] Work Phone: Comment on above: Ordered: 04/25/2022 FLT3 ITD HN BONE MARROW [facility] Work Phone: Comment on above: Ordered: 04/25/2022 MYELOID NGS PANEL NATALIE NE MARROW [facility] Work Phone: Comment on above: Ordered: 04/25/2022 MYELOID NGS PANEL NATALIE NE MARROW [facility] Work Phone: Comment on above: Ordered: 04/25/2022 MYELOPROLIFERATIVE NEOPLASM PANEL MARROW MYELOPROLIFERATIVE NEOPLASM PANEL MARROW Lab Routine Myelodysplastic syndrome (HCC) CRF (chronic renal failure), stage 4 (severe) (HCC) Ordered: 04/25/2022 [facility] Work Phone: Comment on above: Ordered: 04/25/2022 Patient Education Nosebleeds [facility] Work Phone: Patient referral [facility] Work Phone: Renal function 2000 panel - Serum or Plasma [facility] Immunizations Immunization Date Immunization Notes Care Provider Pierce cosme 04-16-2023 influenza, high dose seasonal, preservative-free Bernarda Timmis [facility] 05-20-2022 influenza virus vacc ine, unspecified formulation Jacquelin Mick [facility] 05-20-2022 influenza, high-dose , quadrivalent vaccine (FLUZONE HIGH DOSE QUADRIVALENT) Asher Hummel MD Work Phone: [facility] 04-27-2022 influenza virus vacc ine, unspecified formulation Bernarda Hyde [facility] 04-27-2022 influenza, high dose seasonal, preservative-free [facility] 06-29-2021 SARS-CoV-2 (COVID-19 ) mRNA-[id number] vaccine Jacquelin Barton [facility] 05-02-2021 influenza virus vacc ine, unspecified formulation Jacquelin Barton [facility] 05-02-2021 influenza, high-dose , quadrivalent vaccine (FLUZONE HIGH DOSE QUADRIVALENT) Chair Owens Work Phone: [facility] 09-25-2020 COVID-19 vaccine, fu ll dose (MODERNA) Chair Owens Work Phone: [facility] 09-16-2020 COVID-19 vaccine, ag e 12+ yr (PFIZER-BIONTECH - [facility] TOP) Chair Owens Work Phone: [facility] 09-14-2020 COVID-19 vaccine, fu ll dose (MODERNA) Chair Owens Work Phone: [facility] 08-28-2020 COVID-19 vaccine, fu ll dose (MODERNA) Chair Owens Work Phone: [facility] 08-25-2020 COVID-19 vaccine, ag e 12+ yr (PFIZER-BIONTECH - PURPLE TOP) Chair Owens Work Phone: [facility] 08-17-2020 COVID-19 vaccine, fu ll dose (MODERNA) Chair Owens Work Phone: [facility] 06-23-2019 influenza virus vacc ine, unspecified formulation Jacquelin Barton [facility] 06-23-2019 Seasonal, quadrivale nt, recombinant, injectable influenza vaccine, preservative free Chair Owens Work Phone: [facility] 05-10-2019 influenza virus vacc ine, unspecified formulation Jacquelin Barton [facility] 05-10-2019 influenza, seasonal, injectable Chair Owens Work Phone: [facility] 05-28-2018 influenza virus vacc ine, unspecified formulation Jacquelin Barton [facility] 05-28-2018 influenza, high dose seasonal, preservative-free Chair Owens Work Phone: [facility] 06-18-2015 influenza virus vacc ine, unspecified formulation Jacquelin Barton [facility] 06-18-2015 influenza, seasonal, injectable, preservative free Chair Owens Work Phone: [facility] 05-08-2014 influenza virus vacc ine, unspecified formulation Jacquelin Barton [facility] 05-08-2014 influenza, seasonal, injectable, preservative free Chair Owens Work Phone: [facility] 05-08-2014 pneumococcal polysaccharide vaccine, 23 valent Chair Owens Work Phone: [facility] 05-23-2013 influenza virus vacc ine, unspecified formulation Jacquelin Barton [facility] 05-23-2013 influenza, seasonal, injectable Chair Owens Work Phone: [facility] 06-27-2005 influenza virus vacc ine, unspecified formulation External Provider [facility] Work Phone: 07-13-2002 influenza virus vacc ine, unspecified formulation External Provider [facility] 07-13-2002 pneumococcal polysaccharide vaccine, 23 valent External Provider [facility] Payers Date Payer Category Payer Self-pay 2023 Private Health Insurance [id number] 2023 Private Health Insurance [id number] 2022 Medicare [id number] 2021 Medicare MMO MEDICARE MMO MEDADVANTAGE PPO [id number] 2021-Present [phone] [address] [place] [address] PPO [id number] 2021 Medicare [id number] 2019 Medicare AETNA MEDICARE A ETNA MEDICARE PPO [id number] 2019-Present PPO [id number] 2017 Private Health Insurance [id number] Unknown [id number] 1938 Unknown [id number] 2.840.1.548954.3.579 .2. 1938 Unknown [id number] 2.840.1.137711.3.579 .2. 1938 Unknown [id number] 2.16840.1.470060.3.579 .2. 1938 Unknown [id number] 2.16840.1.681551.3.579 .2. 1938 Unknown [id number] 2.16.840.1.361570.3.579 .2.647 1938 Unknown [id number] 2.16.840.1.910189.3.579 .2.593 1938 Unknown [id number] 2.16.840.1.781442.3.579 .2.593 1938 Unknown [id number] 2.16.840.1.627127.3.579 .2.593 1938 Unknown [id number] 2.16.840.1.092528.3.579 .2.593 1938 Unknown [id number] 2.16.840.1.145429.3.579 .2.593 1938 Unknown [id number] 2.16.840.1.783420.3.579 .2.593 1938 Unknown [id number] 2.16.840.1.080120.3.579 .2.593 1938 Unknown [id number] 2.16.840.1.450273.3.579 .2.593 1938 Unknown [id number] 2.16.840.1.605477.3.579 .2.593 1938 Unknown [id number] 2.16.840.1.448775.3.579 .2.593 1938 Unknown [id number] 2.16.840.1.160435.3.579 .2.593 1938 Unknown [id number] 2.16.840.1.184174.3.579 .2.593 1938 Unknown [id number] 2.16.840.1.159364.3.579 .2.593 1938 Unknown [id number] 2.16.840.1.026464.3.579 .2.593 1938 Unknown [id number] 2.16.840.1.320891.3.579 .2.593 1938 Unknown [id number] 2.16.840.1.483668.3.579 .2.593 1938 Unknown [id number] 2.16.840.1.393840.3.579 .2.59 1938 Unknown [id number] 2.16.840.1.388316.3.579 .2.59 1938 Unknown [id number] 2.16.840.1.589646.3.579 .2.59 1938 Unknown [id number] 2.16.840.1.112625.3.579 .2.125 1938 Unknown [id number] 2.16.840.1.614240.3.579 .2.125 1938 Unknown [id number] 2.16.840.1.368817.3.579 .2.125 1938 Unknown [id number] 2.16.840.1.140492.3.579 .2.125 1938 Unknown [id number] 2.16.840.1.847418.3.579 .2.72 1938 Unknown [id number] 2.16.840.1.855093.3.579 .2.72 1938 Unknown [id number] 2.16.840.1.361355.3.579 .2.72 1938 Unknown [id number] 2.16.840.1.784191.3.579 .2.72 1938 Unknown [id number] 2.16.840.1.815240.3.579 .2.72 1938 Unknown [id number] 2.16.840.1.284293.3.579 .2.72 1938 Unknown [id number] 2.16.840.1.274248.3.579 .2.72 1938 Unknown [id number] 2.16.840.1.594397.3.579 .2. 1938 Unknown [id number] 2.16.840.1.100092.3.579 .2 1938 Unknown [id number] 2.16.840.1.146769.3.579 .2 1938 Unknown [id number] 2.16.840.1.408434.3.579 .2 1938 Unknown [id number] 2.16.840.1.826835.3.579 .2 1938 Unknown [id number] 2.16.840.1.673879.3.579 .2 1938 Unknown [id number] 2.16.840.1.309557.3.579 .2 1938 Unknown [id number] 2.16.840.1.412515.3.579 .2 1938 Unknown [id number] 2.16.840.1.520702.3.579 .2 1938 Unknown [id number] 2.16.840.1.002908.3.579 .2 1938 Unknown [id number] 2.16.840.1.104380.3.579 .2 1938 Unknown [id number] 2.840.1.551395.3.579 .2 1938 Unknown [id number] 2.16.840.1.631799.3.579 .2 1938 Unknown [id number] 2.16.840.1.226863.3.579 .2 1938 Unknown [id number] 2.16.840.1.905238.3.579 .2.72 Unknown [id number] 2.16.840.1.500942.3.579 .2.531 Social History Date Type Detail Facility [facility] Start: 1940 Sex Assigned At Not on file C [facility] Exposure to SARS-CoV -2 (event) Unable to assess [facility] Start: 05-29-2020 End: 11-11-2023 Tobacco smoking status NHIS Ex-smoker [facility] Comment on above: quit 1993 End: 07-28-1994 History of tobacco use Current smoker [facility] End: 07-28-1994 History of tobacco use Pipe Smoker [facility] Start: 05-29-2020 End: 03-11-2022 Tobacco use and exposure Smokeless tobacco non-user [facility] Start: 10-15-2021 End: 01-06-2024 Alcohol intake Ex-drinker (finding) [facility] Start: 10-05-2021 End: 07-01-2022 Exposure to SARS-CoV-2 (event) Not sure [facility] History of tobacco use Passive smoker [facility] Start: 11-20-2022 End: 02-18-2023 Sex Assigned At Male [facility] Start: 1940 Sex Assigned At Male [facility] Tobacco smoking status Never [facility] [place] Comment on above: quit 1993 Start: 11-20-2022 End: 02-18-2023 History of Social function [facility] Medical Equipment Procedure Code Equipment Code Equipment Origin al Text Equipment Identifier Dates [id number], [id number] Start: 04-07-2020 See Instructions , One touch ultra blue test strips Use as directed to test sugars once a day Start: 03-10-2023 See Instructions , One touch ultra blue test strips Use as directed to test sugars once a day Start: 03-10-2023 Clinical Notes 10-15-2021 to 01-15-2024 Oumou Mandel MD - 01/06/2024 12:35 PM EDTPatient Rowdy Portillo DO - 11/26/2023 10:00 AM EDTPatient Curt Gamez MD - 10/27/2023 3:11 PM EDTPatient Instructions Note Date & Type Note Facility 01-15-2024 Note Coronary artery dise ase is unchanged. Continue current treatment regimen. Dietary sodium restriction. Continue current medications. Cardiac status will be reassessed 3-6 months. [facility] 01-15-2024 Note [facility] II-III currentl y fairly euvolemic without exacerbation Continue GDMT- ASA, lipitor, farxiga, bumex, toprol, aldactone and metolazone weekly as per nephrology. Asked pt to hold lisinopril in light of hypotension and to monitor b/p, change positions slowly, be careful to prevent falls and he voiced understanding. Diuretic therapy- bumex/ metolazone Monitor daily weights, I&O, fluid restriction 1.5-2L/day, renal function and electrolytes- [facility] 01-15-2024 Note Lipid abnormalities are unchanged. Pharmacotherapy as ordered. Lipids will be reassessed in 6 months. [facility] 01-15-2024 Note No concerning sympto ms at this time. Repeat echo prior to next visit [facility] 01-15-2024 Note [id number]= 5 Age, CHF, HTN, DM In light of recent bleeding issues/epistaxis anticoagulation has been stopped, Dr Gomez d/w them regarding watchman implantation and he refused any invasive procedure at this time. Currently rate controlled Continue toprol [facility] 01-15-2024 Note [facility] CARDIOLOGY PROGR ESS NOTE HPI: Sandip Broussard is a 83 y.o. male here for routine F/U for CAD s/p TIFFANY to LAD and RCA, A fib, HFrEF, mitral valve regurg HPI Patient here for 3 mo follow up chronic systolic heart failure, hypertension, permanent afib, and mitral valve regurgitation. Had blood transfusion 2 days ago after lab work. said BP has been running low. Supposedly his plate corrector put him on metolazone once a week. Denies chest pain, palpitations, lightheadedness/syncope. He is ambulatory via W/C to office today. Admits easily bruising of extremities therefore covers arms with padded sleeves to protect. Review of Systems Constitutional: Positive for malaise/fatigue. HENT: Positive for hearing loss. Cardiovascular: Positive for dyspnea on exertion. Respiratory: Positive for cough and shortness of breath. Hematologic/Lymphatic: Bruises/bleeds easily. Musculoskeletal: Positive for arthritis, back pain and muscle weakness. Neurological: Positive for weakness. All other systems reviewed and are negative. Previous HPI- 82 yo male presents to clinic with family for 1 week f/U. Last week he was sent to ED for noted K+ 6.3. Repeat K+ have improved. Currently he states typical SOB with exertion and continues to wear O2 24/7. Denied chest pain, Orthopnea, leg swelling or weight gain. PT and family states that he is not eating well r/t no appetite and typically does not drink much fluids- 1 glass of milk, 1-2 boost/day. He is a 82-year-old man with a [...] the echocardiogram performed in June 2020 at [facility]. Previously he sustained GI bleeding and underwent investigation of the [facility] clinic. He recovered from that. [...] procedures. On 11/18/2021 he was admitted to [facility] with decompensated heart failure. 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 He underwent diuresis. Right heart catheterization on 11/21/2021 showed elevated filling pressures. Transesophageal echocardiogram showed moderately reduced systolic function with an ejection fraction of 30 to 35% and severe mitral regurgitation. Since last visit he has been doing about the same. He continues to be on oxygen therapy continuously. 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 this was stopped. He is currently under treatment with a new derrick boat operator and his anemia is being managed [...] June 2023 he was admitted to the [facility] with low hemoglobin and received [...] elevated. He says he feels better when (more content not included)... [facility] 01-15-2024 Note Patient here for 3 m o follow up chronic systolic heart failure, hypertension, permanent afib, and mitral valve regurgitation. Had blood transfusion 2 days ago after lab work. said BP has been running low. Supposedly his plate corrector put him on metolazone once a week. Denies chest pain, palpitations, lightheadedness/syncope. Review of Systems Constitutional: Positive for malaise/fatigue. HENT: Positive for hearing loss. Cardiovascular: Positive for dyspnea on exertion. Respiratory: Positive for cough and shortness of breath. Hematologic/Lymphatic: Bruises/bleeds easily. Musculoskeletal: Positive for arthritis, back pain and muscle weakness. Neurological: Positive for weakness. All other systems reviewed and are negative. [facility] 01-06-2024 Note HNO ID: [id number] Author: OUMOU MANDEL MD Service: ? Author Type: Physician Type: Progress Notes Filed: 01/06/2024 12:58 Note Text: History: Sandip Broussard, a 83 year old male - on ASA, presents for f/up recurrent L nosebleeds. No bleed in last 6 wks since using [facility] ointment, trimmed nasal canula. On nasal O2. H/o recurrent L nosebleeds. Packed in hosp 02/14. S/p caut about 'S/p B T-tubes by outside ENT >1 y ago. L tube out. R tube removed 07/17. . Audio 07/17: L mixed, R SNHL. Sym bone line. SRT R/L 50/90, WRS R/L 68/34 PE: Alert; oriented; well-developed; no apparent distress. Normal voice; normal communication. Nose: patent, mild crusting L ant septum, mild congestion, no rhinorrhea. Assessment/Plan: H/o L epistaxis. Controlled with [facility] ointment, keeping canula trimmed. Rec humidification. F/up prn. Medical Decision Making: Problems: Low: Acute, uncomplicated illness or injury Risk: Low: Low risk from testing/treatment Medical Decision Making Level: 3 - Low [facility] 01-06-2024 History of Present illness Narrative History: Sandip Broussard, a 83 year old male - on ASA, presents for f/up recurrent L nosebleeds. No bleed in last 6 wks since using [facility] ointment, trimmed nasal canula. On nasal O2. H/o recurrent L nosebleeds. Packed in hosp 02/14. S/p caut about 'S/p B T-tubes by outside ENT >1 y ago. L tube out. R tube removed 07/17. . Audio 07/17: L mixed, R SNHL. Sym bone line. SRT R/L 50/90, WRS R/L 68/34 PE: Alert; oriented; well-developed; no apparent distress. Normal voice; normal communication. Nose: patent, mild crusting L ant septum, mild congestion, no rhinorrhea. Assessment/Plan: H/o L epistaxis. Controlled with [facility] ointment, keeping canula trimmed. Rec humidification. F/up prn. Medical Decision Making: Problems: Low: Acute, uncomplicated illness or injury Risk: Low: Low risk from testing/treatment Medical Decision Making Level: 3 - Low documented in this encounter [facility] 11-26-2023 Instructions Rowdy Crawford DO - 11/26/2023 10:46 AM EDT On days you get blood transfusion - take an extra bumex pill in the morning (4mg) and then 2mg at night for a total of 6mg that day We'll start metolazone (zaroxyln) 2.5mg daily (1 pill) on Friday to be taken once a week for now Our goal is check weight daily and decrease by half a pound daily - to get back to your normal weight around 200lbs. Check blood pressure daily Repeat the blood work in 2 weeks after these changes. If he's not losing weight after a week - we'll likely go to 3 times a week of the metolazone. Please call if you have questions or concerns documented in this encounter [facility] 11-26-2023 History of Present illness Narrative Images from the original note were not included. NEPHROLOGY CLINIC INITIAL VISIT PATIENT NAME: Sandip Broussard Consultation requested by self for an opinion regarding ckd. My final recommendations will be communicated back to the requesting physician by way of shared Medical record or letter to requesting physician via US mail. 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 -he's gain ~20lbs over the last few months and is most interested in ease of breathing and reduction in swelling. -I explained the challenging situation of repeated blood transfusions, hf, severe MR and ckd that this will be challening to ultimately control but we'll try Plan -Bumex extra pill on day of transfusions -Add weekly metolazone 2.5 -goal is ~1/2 lb per day weight loss, if after a week no better, move to [facility] metolazone. Despite the order existing he's not taken this drug before -repeat labs in 2 weeks in trent, printed orders given. -RTC in 3 months or so SUBJECTIVE chief complaint HPI: 82 year old mal hx of HTN, diastolic CHF, afib, CAD, DM, Prostate Cancer, MDS. Much of his care has been at [facility]. He's had ongoing and previous episodes of gi and nosebleeds on eliquis low dose requiring cauterization. He apparently has severe MR which he declined mitral clip. He's on continuous O2, he's having transfusion dependent MDS via hematology - per cardiology causing significant issues of volume overload last hgb was 7.4 in care everywhere. Apparently tried hospice but he fired them, he didn't want to stop his medication. Last Cr in care everywehre 2.1 - baseline unclear but between 1-2 over last few years and is quite dynamic. Had hyperkaelmia in september which he saw MFT Zara Armendarizmex: 1mg bid Adlactone + K supplement Farxiga Lisinopril 2.5 In [facility] records Cr trends below RENAL HX A1c Duration DM Duration HTN Urine Imaging Cr trend Current Outpatient Medications Medication Instructions amoxicillin-clavulanic acid (AUGMENTIN) 875-125 mg per tablet No dose, route, or frequency recorded. aspirin 81 mg chewable tablet CHEW 1 TABLET BY MOUTH EVERY DAY atorvastatin (LIPITOR) 20 mg, ORAL, AT BEDTIME bumetanide (BUMEX) 1 mg, ORAL, EVERY MORNING cholecalciferol (VITAMIN D3) 1,000 Units, DAILY, Only taking 500 units colchicine 0.6 mg, ORAL, NEEDED, As needed 1-2 times/week FARXIGA 10 mg, ORAL, DAILY WITH BREAKFAST glipiZIDE (GLUCOTROL) 5 mg, ORAL, DAILY KLOR-CON M20 20 mEq tablet No dose, route, or frequency recorded. lisinopril (ZESTRIL) 10 mg, ORAL, DAILY, Please resume this medication after PCP follow up metOLazone (ZAROXOLYN) 2.5 mg, ORAL, DAILY metoprolol succinate ER (TOPROL XL) 25 mg, ORAL, DAILY mupirocin (BACTROBAN) 2 % ointment TOPICAL, 3 TIMES DAILY omeprazole (PRILOSEC) 40 mg, ORAL, DAILY ondansetron (ZOFRAN) 8 mg, ORAL, EVERY 8 HOURS NEEDED ONETOUCH DELICA PLUS LANCET 33 gauge No dose, route, or frequency recorded. ONETOUCH ULTRA BLUE TEST STRIP test strip No dose, route, or frequency recorded. oxymetazoline (AFRIN, OXYMETAZOLINE,) 0.05 % nasal spray 2 Sprays, NASAL, 2 TIMES DAILY potassium chloride SR (MICRO-K) 10 mEq CR capsule 10 mEq, ORAL, DAILY prochlorperazine (COMPAZINE) 10 mg, ORAL, EVERY 6 HOURS NEEDED sodium chloride-aloe vera (AYR SALINE) topical nasal gel 1 application , INTRANASAL, NEEDED sodium chloride-aloe vera (AYR SALINE) topical nasal gel 1 application , INTRANASAL, NEEDED spironolactone (ALDACTONE) 25 mg, ORAL, DAILY sucralfate (CARAFATE) 1 g, ORAL, 4 TIMES DAILY terazosin (HYTRIN) 5 mg capsule No dose, route, or frequency recorded. Social History Tobacco Use Smoking status: Former Types: Pipe Quit date: 1994 Years since quittin.3 Passive exposure: Past Smokeless tobacco: Never Vaping Use Vaping Use: Never used Substance Use Topics Alcohol use: Not Currently Drug use: Not Currently No family history on file. PAST SURGICAL HISTORY Procedure Laterality Date COLONOSCOPY OBJECTIVE PHYSICAL EXAM: BP - standardized method Pulse 1 BP #1: 104/54 Pulse #1: 59 beats/min 2 BP #2 : 104/65 Pulse #2 : 67 beats/min 3 BP #3 : 99/54 Pulse #3 : 68 beats/min Average Average BP: 102/58 Average Pulse: 64 beats/min Orthostatic vitals Supine Sitting Standing Standing BP : (Patient unable to stand for standing BP) BP cuff location BP cuff location: Right upper arm BP cuff size BP cuff size: regular adult Comments for BP values First BP (right) First BP (Right): 115/58 First BP (left) First BP (Left): 93/39 Intake/Output None GENERAL: no distress LUNGS: Lungs clear to auscultation, Good diaphragmatic excursion CARDIAC: unable to auscultate d/t noise of oxygenator , distant heart sounds EXTREMITIES:2+ edema DATA: Diagnostic tests reviewed for today's visit: Most recent labs and imaging results. CBC, Coags, BMP, Mg, Phos Liver Function, Amylase, & Lipase ABGs SIGNATURE: Rowdy Crawford DO DATE: November 25, 2023 TIME: 1:37 PM During this patient visit I have spent approximately 60 minutes out of 60 in counseling regarding treatment options, medications, and test results and coordinating care. Medical Decision Making: Medical Decision Making Level: 1 - N/A Complexity: Low (1 stable chronic), moderate (2 stable chronic, 1 with exacerbation), High (severe exacerbation) Amount/Complexity of Data: limited (review prior notes & tests), moderate (review notes & tests or discussion MD/independent review/order test) Extensive (review notes & tests AND discussion MD/independent review/order test) Risk of complication :Moderate (Rx, procedure decision) High (intensive monitoring, immunosuppression, hospitalization,de-escalate care) documented in this encounter [facility] 11-26-2023 Note HNO ID: [id number] Author: ROWDY CRAWFORD DO Service: ? Author Type: Physician Type: Progress Notes Filed: 11/26/2023 11:01 Note Text: NEPHROLOGY CLINIC INITIAL VISIT PATIENT NAME: Sandip Broussard Consultation requested by self for an opinion regarding ckd. My final recommendations will be communicated back to the requesting physician by way of shared Medical record or letter to requesting physician via US mail. 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 -he's gain ~20lbs over the last few months and is most interested in ease of breathing and reduction in swelling. -I explained the challenging situation of repeated blood transfusions, hf, severe MR and ckd that this will be challening to ultimately control but we'll try Plan -Bumex extra pill on day of transfusions -Add weekly metolazone 2.5 -goal is ~1/2 lb per day weight loss, if after a week no better, move to [facility] metolazone. Despite the order existing he's not taken this drug before -repeat labs in 2 weeks in trent, printed orders given. -RTC in 3 months or so SUBJECTIVE chief complaint HPI: 82 year old mal hx of HTN, diastolic CHF, afib, CAD, DM, Prostate Cancer, MDS. Much of his care has been at [facility]. He's had ongoing and previous episodes of gi and nosebleeds on eliquis low dose requiring cauterization. He apparently has severe MR which he declined mitral clip. He's on continuous O2, he's having transfusion dependent MDS via hematology - per cardiology causing significant issues of volume overload last hgb was 7.4 in care everywhere. Apparently tried hospice but he fired them, he didn't want to stop his medication. Last Cr in care everywehre 2.1 - baseline unclear but between 1-2 over last few years and is quite dynamic. Had hyperkaelmia in september which he saw MFT Zara Bumex: 1mg bid Adlactone + K supplement Farxiga Lisinopril 2.5 In [facility] records Cr trends below RENAL HX A1c Duration DM Duration HTN Urine Imaging Cr trend Current Outpatient Medications Medication Instructions amoxicillin-clavulanic acid (AUGMENTIN) 875-125 mg per tablet No dose, route, or frequency recorded. aspirin 81 mg chewable tablet CHEW 1 TABLET BY MOUTH EVERY DAY atorvastatin (LIPITOR) 20 mg, ORAL, AT BEDTIME bumetanide (BUMEX) 1 mg, ORAL, EVERY MORNING cholecalciferol (VITAMIN D3) 1,000 Units, DAILY, Only taking 500 units colchicine 0.6 mg, ORAL, NEEDED, As needed 1-2 times/week FARXIGA 10 mg, ORAL, DAILY WITH BREAKFAST glipiZIDE (GLUCOTROL) 5 mg, ORAL, DAILY KLOR-CON M20 20 mEq tablet No dose, route, or frequency recorded. lisinopril (ZESTRIL) 10 mg, ORAL, DAILY, Please resume this medication after PCP follow up metOLazone (ZAROXOLYN) 2.5 mg, ORAL, DAILY metoprolol succinate ER (TOPROL XL) 25 mg, ORAL, DAILY mupirocin (BACTROBAN) 2 % ointment TOPICAL, 3 TIMES DAILY omeprazole (PRILOSEC) 40 mg, ORAL, DAILY ondansetron (ZOFRAN) 8 mg, ORAL, EVERY 8 HOURS NEEDED ONETOUCH DELICA PLUS LANCET 33 gauge No dose, route, or frequency recorded. ONETOUCH ULTRA BLUE TEST STRIP test strip No dose, route, or frequency recorded. oxymetazoline (AFRIN, OXYMETAZOLINE,) 0.05 % nasal spray 2 Sprays, NASAL, 2 TIMES DAILY potassium chloride SR (MICRO-K) 10 mEq CR capsule 10 mEq, ORAL, DAILY prochlorperazine (COMPAZINE) 10 mg, ORAL, EVERY 6 HOURS NEEDED sodium chloride-aloe vera (AYR SALINE) topical nasal gel 1 application , INTRANASAL, NEEDED sodium chloride-aloe vera (AYR SALINE) topical nasal gel 1 application , INTRANASAL, NEEDED spironolactone (ALDACTONE) 25 mg, ORAL, DAILY sucralfate (CARAFATE) 1 g, ORAL, 4 TIMES DAILY terazosin (HYTRIN) 5 mg capsule No dose, route, or frequency recorded. Social History Tobacco Use Smoking status: Former Types: Pipe Quit date: 1994 Years since quittin.3 Passive exposure: Past Smokeless tobacco: Never Vaping Use Vaping Use: Never used Substance Use Topics Alcohol use: Not Currently Drug use: Not Currently No family history on file. PAST SURGICAL HISTORY Procedure Laterality Date COLONOSCOPY OBJECTIVE PHYSICAL EXAM: BP - standardized method Pulse 1 BP #1: 104/54 Pulse #1: 59 beats/min 2 BP #2 : 104/65 Pulse #2 : 67 beats/min 3 BP #3 : 99/54 Pulse #3 : 68 beats/min Average Average BP: 102/58 Average Pulse: 64 beats/min Orthostatic vitals Supine Sitting Standing Standing BP : (Patient unable to stand for standing BP) BP cuff location BP cuff location: Right upper arm BP cuff size BP cuff size: regular adult Comments for BP values First BP (right) First BP (Right): 115/58 First BP (left) First BP (Left): 93/39 I (more content not included)... [facility] 11-26-2023 Note Patient Outreach (ANA LUISA DMMN) SANDIP BROUSSARD ([id number]) 1940 M Date Time Provider Department 11/26/23 ROWDY CRAWFORD During your visit today, we recorded the following information about you: Allergies As of Date: 11/26/2023 Noted Allergy Reaction BEE POLLEN 10/27/2023 4 - Hives COREG (CARVEDILOL) 05/29/2020 4 - Hives Date Reviewed: 11/26/2023 Reviewed by: Aubrie Osorio OCCA - Fully Assessed Visit Diagnosis:Screening for genitourinary condition [Z13.89] Order(s):URINALYSIS, REFLEX MICROSCOPIC [[id number]] Order #: [id number]. #:[id number] Prescriptions as of 12/01/2023 - acetaminophen-codeine (TYLENOL-COD #3) 300-30 mg per tablet Take 1 tablet by mouth q 8 HR. - febuxostat (ULORIC) 40 mg tab - lidocaine (LIDODERM) 5 % Apply 1 Patch as directed every 24 hours. - metOLazone (ZAROXOLYN) 2.5 mg tablet Take 1 tablet by mouth one time a week. - sodium chloride-aloe vera (AYR SALINE) topical nasal gel 1 application by INTRANASAL route as needed. - mupirocin (BACTROBAN) 2 % ointment Apply to affected area three times a day. - sodium chloride-aloe vera (AYR SALINE) topical nasal gel 1 application by INTRANASAL route as needed. - oxymetazoline (AFRIN, OXYMETAZOLINE,) 0.05 % nasal spray Use 2 Sprays in the nose two times a day. - amoxicillin-clavulanic acid (AUGMENTIN) 875-125 mg per tablet - KLOR-CON M20 20 mEq tablet - terazosin (HYTRIN) 5 mg capsule - ondansetron (ZOFRAN) 8 mg tablet Take 1 tablet by mouth every 8 hours as needed for nausea/vomiting. - prochlorperazine (COMPAZINE) 10 mg tablet Take 1 tablet by mouth every 6 hours as needed. - omeprazole (PRILOSEC) 40 mg capsule Take 40 mg by mouth once daily. - bumetanide (BUMEX) 1 mg tablet Take by mouth every morning. - potassium chloride SR (MICRO-K) 10 mEq CR capsule Take 10 mEq by mouth once daily. - FARXIGA 10 mg tablet Take 10 mg by mouth daily with breakfast. - metoprolol succinate ER (TOPROL XL) 25 mg 24 hr tablet Take 25 mg by mouth once daily. - spironolactone (ALDACTONE) 25 mg tablet Take 25 mg by mouth once daily. - aspirin 81 mg chewable tablet CHEW 1 TABLET BY MOUTH EVERY DAY - sucralfate (CARAFATE) 1 gram tablet Take 1 g by mouth four times daily. - atorvastatin (LIPITOR) 20 mg tablet Take 1 tablet by mouth daily at bedtime. - colchicine 0.6 mg tablet Take 0.6 mg by mouth as needed. As needed 1-2 times/week - lisinopril (ZESTRIL, PRINIVIL) 10 mg tablet Take 1 tablet by mouth once daily. Please resume this medication after PCP follow up - ONETOUCH DELICA PLUS LANCET 33 gauge - glipiZIDE (GLUCOTROL) 5 mg tablet Take 5 mg by mouth once daily. - ONETOUCH ULTRA BLUE TEST STRIP test strip - cholecalciferol (VITAMIN D3) 1,000 unit tab tablet 1,000 Units once daily. Only taking 500 units Problem List As Of Date 11/26/2023 Noted Resolved Essential hypertension, benign [I10] 01/13/2002 HYPERLIPIDEMIA NEC/NOS [E78.5] 01/13/2002 CORONARY ATHEROSCLER UNSPEC VESSEL [I25.10] 01/13/2002 ABNORMAL LIVER FUNCTION STUDY [R94.5] 08/10/2003 CHRONIC KIDNEY DISEASE, STAGE II (MILD) [N18.2] 06/27/2005 CKD (chronic kidney disease) stage 4, GFR 15-29*05/29/2020 MDS (myelodysplastic syndrome) (HCC) [D46.9] 05/29/2020 Iron deficiency anemia due to chronic blood los*06/15/2020 GIB (gastrointestinal bleeding) [K92.2] 07/06/2020 CRF (chronic renal failure), stage 4 (severe) (*08/23/2020 Anemia of chronic renal failure, stage 4 (sever*08/23/2020 Mixed conductive and sensorineural hearing loss*07/13/2021 Impairment of auditory discrimination of both e*07/13/2021 Malignant neoplasm of prostate (HCC) [C61] 08/24/2021 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 tr*08/24/2021 Hypotension due to hypovolemia [E86.1] 08/24/2021 Type 2 diabetes mellitus with stage 3 chronic k*12/01/2022 Encounter Status:Closed by Storrz, PRODUSER on 12/01/23 [facility] 10-27-2023 Instructions Curt Farah MD - 10/27/2023 3:30 PM EDT The patient was instructed to keep the nose moist and apply: 1- Bactroban ointment twice daily for the next several weeks 2- [place]born nasal spray 3-4 sprays in each nostril 4 times daily In the event of a recurrent nose bleed; - if severe, apply pressure, and go to the emergency room, may need to call 911 - lean head forward, apply afrin and pressure to the front of the nose and wait 20 min, if bleeding does not stop will need to go to the nearest emergency room. documented in this encounter [facility] 10-27-2023 Note HNO ID: [id number] Author: CURT FARAH MD Service: ? Author Type: Physician Type: Progress Notes Filed: 10/27/2023 16:17 Note Text: SECTION OF RHINOLOGY, SINUS AND SKULL BASE SURGERY Head and Neck [place], [facility] NOTE HPI: Patient is a 82 year old male who presents today for epistaxis. He was on Eliquis and had epistaxis return once he was done with medication. PAST MEDICAL HISTORY Diagnosis Date Anemia Anemia of chronic renal failure, stage 4 (severe) (HCC) 08/23/2020 Atrial fibrillation (HCC) Chronic kidney disease CRF (chronic renal failure), stage 4 (severe) (HCC) 08/23/2020 Diabetes mellitus (HCC) GI bleed Hypertension Iron deficiency anemia due to chronic blood loss 06/15/2020 Leukopenia Sleep apnea Thrombocytopenia (HCC) PAST SURGICAL HISTORY Procedure Laterality Date COLONOSCOPY No family history on file. Social History Tobacco Use Smoking status: Former Types: Pipe Quit date: 1994 Years since quittin.2 Passive exposure: Past Smokeless tobacco: Never Vaping Use Vaping Use: Never used Substance Use Topics Alcohol use: Not Currently Drug use: Not Currently Current Outpatient Medications Medication Sig Dispense Refill amoxicillin-clavulanic acid (AUGMENTIN) 875-125 mg per tablet KLOR-CON M20 20 mEq tablet metOLazone (ZAROXOLYN) 2.5 mg tablet Take 2.5 mg by mouth once daily. terazosin (HYTRIN) 5 mg capsule ondansetron (ZOFRAN) 8 mg tablet Take 1 tablet by mouth every 8 hours as needed for nausea/vomiting. 90 tablet 1 prochlorperazine (COMPAZINE) 10 mg tablet Take 1 tablet by mouth every 6 hours as needed. 100 tablet 1 omeprazole (PRILOSEC) 40 mg capsule Take 40 [...] 1 g by mouth four times daily. atorvastatin (LIPITOR) 20 mg tablet Take 1 tablet by mouth daily at bedtime. 90 tablet 0 colchicine 0.6 mg tablet Take 0.6 mg [...] after PCP follow up 90 tablet 3 No current facility-administered medications for this visit. ALLERGIES Allergen Reactions Bee Stings [Other] large hives, swelling at site Coreg [Carvedilol] Hives ROS: CONSTITUTIONAL: No fevers, chills, nightsweats, unintended weight loss HEENT: HEENT: Yes symptoms: epistaxis, No symptoms: headaches, sinus pressure, nasal congestion, sense of smell absent, and nasal drainage both EYES: No diplopia or blurry vision. PHYSICAL EXAM: 10/27/23 1506 Temp: 36.8 ?C (98.2 ?F) General appearance: well developed, well nourished, without obvious deformities Eyes: Extra ocular muscles are intact, no diplopia on primary gaze Ears: Externally normal in appearance, without scars, lesions, or masses. Both left and right external auditory canals and tympanic membranes are normal Nasal exam: The mucosa is pink, the septum is No deviated, and the visible turbinates are Yes hypertrophied on anterior rhinoscopy, nasal polyps (0 L, 0 R) Oral cavity and oropharynx: the oral mucosa, tongue, tonsil area, and posterior pharyngeal mucosa are without lesions. Floor of mouth is soft without edema. Procedure: Diagnostic rigid nasal endoscopy Consent: verbal consent obtained Surgeon: Curt Farah Anesthesia: The patient was sprayed with 4% topical lidocaine and Afrin. A rigid nasal scope was utilized to examine the patient nose Findings: A 30-degree rigid endoscope was passed through the patient's bilateral nares. The first pass was along the floor of the nose to the nasopharynx. The second pass was to the area of the middle meatus. The third pass was to the sphenoethmoidal recess. Septum: The septum is midline, no perforations. R/L Nasal cavity No nasal polyps (0 L, 0 R) Right nasal cavity: Inferior turbinate: Hypertrophied Inferior meatus: Clear, no discharge, no polyps/masses/lesions Middle meatus: Clear, no discharge, no polyps/masses/lesions Middle turbinate: Normal in size Sphenoethmoidal recess: Clear, no discharge, no polyps/masses/lesions Left nasal cavity: Inferior turbinate: Hypertrophied Inferior meatus: Clear, no discharge, no poly (more content not included)... [facility] 10-27-2023 History of Present illness Narrative Images from the original note were not included. SECTION OF RHINOLOGY, SINUS AND SKULL BASE SURGERY Head and Neck [place], [facility] NOTE HPI: Patient is a 82 year old male who presents today for epistaxis. He was on Eliquis and had epistaxis return once he was done with medication. PAST MEDICAL HISTORY Diagnosis Date Anemia Anemia of chronic renal failure, stage 4 (severe) (HCC) 08/23/2020 Atrial fibrillation (HCC) Chronic kidney disease CRF (chronic renal failure), stage 4 (severe) (HCC) 08/23/2020 Diabetes mellitus (HCC) GI bleed Hypertension Iron deficiency anemia due to chronic blood loss 06/15/2020 Leukopenia Sleep apnea Thrombocytopenia (HCC) PAST SURGICAL HISTORY Procedure Laterality Date COLONOSCOPY No family history on file. Social History Tobacco Use Smoking status: Former Types: Pipe Quit date: 1994 Years since quittin.2 Passive exposure: Past Smokeless tobacco: Never Vaping Use Vaping Use: Never used Substance Use Topics Alcohol use: Not Currently Drug use: Not Currently Current Outpatient Medications Medication Sig Dispense Refill amoxicillin-clavulanic acid (AUGMENTIN) 875-125 mg per tablet KLOR-CON M20 20 mEq tablet metOLazone (ZAROXOLYN) 2.5 mg tablet Take 2.5 mg by mouth once daily. terazosin (HYTRIN) 5 mg capsule ondansetron (ZOFRAN) 8 mg tablet Take 1 tablet by mouth every 8 hours as needed for nausea/vomiting. 90 tablet 1 prochlorperazine (COMPAZINE) 10 mg tablet Take 1 tablet by mouth every 6 hours as needed. 100 tablet 1 omeprazole (PRILOSEC) 40 mg capsule Take 40 [...] 1 g by mouth four times daily. atorvastatin (LIPITOR) 20 mg tablet Take 1 tablet by mouth daily at bedtime. 90 tablet 0 colchicine 0.6 mg tablet Take 0.6 mg [...] after PCP follow up 90 tablet 3 No current facility-administered medications for this visit. ALLERGIES Allergen Reactions Bee Stings [Other] large hives, swelling at site Coreg [Carvedilol] Hives ROS: CONSTITUTIONAL: No fevers, chills, nightsweats, unintended weight loss HEENT: HEENT: Yes symptoms: epistaxis, No symptoms: headaches, sinus pressure, nasal congestion, sense of smell absent, and nasal drainage both EYES: No diplopia or blurry vision. PHYSICAL EXAM: 10/27/23 1506 Temp: 36.8 C (98.2 F) General appearance: well developed, well nourished, without obvious deformities Eyes: Extra ocular muscles are intact, no diplopia on primary gaze Ears: Externally normal in appearance, without scars, lesions, or masses. Both left and right external auditory canals and tympanic membranes are normal Nasal exam: The mucosa is pink, the septum is No deviated, and the visible turbinates are Yes hypertrophied on anterior rhinoscopy, nasal polyps (0 L, 0 R) Oral cavity and oropharynx: the oral mucosa, tongue, tonsil area, and posterior pharyngeal mucosa are without lesions. Floor of mouth is soft without edema. Procedure: Diagnostic rigid nasal endoscopy Consent: verbal consent obtained Surgeon: Curt Farah Anesthesia: The patient was sprayed with 4% topical lidocaine and Afrin. A rigid nasal scope was utilized to examine the patient nose Findings: A 30-degree rigid endoscope was passed through the patient's bilateral nares. The first pass was along the floor of the nose to the nasopharynx. The second pass was to the area of the middle meatus. The third pass was to the sphenoethmoidal recess. Septum: The septum is midline, no perforations. R/L Nasal cavity No nasal polyps (0 L, 0 R) Right nasal cavity: Inferior turbinate: Hypertrophied Inferior meatus: Clear, no discharge, no polyps/masses/lesions Middle meatus: Clear, no discharge, no polyps/masses/lesions Middle turbinate: Normal in size Sphenoethmoidal recess: Clear, no discharge, no polyps/masses/lesions Left nasal cavity: Inferior turbinate: Hypertrophied Inferior meatus: Clear, no discharge, no polyps/masses/lesions Middle meatus: Clear, no discharge, no polyps/masses/lesions Middle turbinate: Normal in size Sphenoethmoidal recess: Clear, no discharge, no polyps/masses/lesions Nasopharynx: Clear, no discharge, no masses/lesions UPSIT:None Review (for CBC/CBCDIF) Date Value Ref Range Status 07/13/2020 Unable to assay. No specimen received. Final Comment: Account Credited Last CT Sinus - Impression Only No resulted procedures found. ASSESSMENT/PLAN: 1. Oxygen deficit - ICD9: 799.02, ICD10: R09.02 (primary diagnosis) - CONSULT TO PULMONARY MEDICINE 2. Epistaxis - ICD9: 784.7, ICD10: R04.0 - Start using sodium chloride-aloe vera (AYR SALINE) topical nasal gel and mupirocin (BACTROBAN) 2 % ointment - Follow up in 6 weeks Follow these Steps to Stop a Nosebleed. Stay calm Sit down and lean your body and your head slightly forward. This will keep the blood from running down your throat, which can cause nausea, vomiting, choking, and diarrhea. (Do NOT lay flat or put your head between your legs.) Breathe through your mouth Use a tub/bowl or damp washcloth to catch the blood. Use your thumb and index finger to pinch together the soft part of your nose. Make sure to pinch together the soft part of the nose. Squeezing at or above the bony part of the nose will not put pressure where it can help stop bleeding. Keep pinching your nose without letting go for at least 10 minutes (timed by clock). Do not peek to see if the bleeding has stopped. Every time you stop to peek, -- and the bleeding has not stopped -- you have to restart the clock and pinch your nose for another 5 minutes! If your nostril is still bleeding, continue squeezing your nose for another 10 minutes. You can spray an pswo-pmy-uqfbqwh decongestant spray, such as oxymetazoline (Afrin , Raphael-Synephrine ) into the bleeding side of the nose and then apply pressure to the nose as described above. Do not use Afrin for more than 5 days. The patient was instructed to keep the nose moist and apply: 1- Bactroban ointment twice daily for the next several weeks 2- Sanborn nasal spray 3-4 sprays in each nostril 4 times daily 3- Lanolin ointment 100% when Bactroban course is completed. In the event of a recurrent nose bleed; - if severe, apply pressure, and go to the emergency room, may need to call 911 - lean head forward, apply afrin and pressure to the front of the nose and wait 20 min, if bleeding does not stop will need to go to the nearest emergency room. No data to display PROMIS-10 Flowsheet Row Visit (SP) Office from 06/17/2022 in Hematology/Oncology Global Physical Health T Score 47.7 Global Mental Health T Score 48.3 0-10 Standard Pain Scale 5 Scribe Attestation: By signing my name below, I, Toshia Galo, attest that this documentation has been prepared under the direction and in the presence of Dr. Curt Farah MD. Electronically Signed: Dat Kothari, October 27, 2023 3:17 PM Provider Attestation: I, Dr.Mohamad Farah, personally performed the services described in this documentation. All medical record entries made by the scribe/resident/fellow were at my direction and in my presence. I have reviewed the chart and agree that the record reflects my personal performance and is accurate and complete. documented in this encounter [facility] 10-22-2023 Note [id number] [facility] 10-14-2023 Hospital Discharge instructions Additional Instructions Is [...] with ENT for nosebleed as instructed per [place]. Avoid blowing your nose You understand signing out AGAINST MEDICAL ADVICE if there is anything cardiac going indicated cardiac arrest, respiratory arrest, disability, [facility] Work Phone: 10-10-2023 Note stable [facility] 10-10-2023 Note Will continue to mon itor, no acute symptoms at this time Dr Gomez d/w about mitraclip procedure and he also declined this procedure [facility] 10-10-2023 Note In light of recent b leeding issues/epistaxis anticoagulation has been stopped, Dr Gomez d/w them regarding watchman implantation and he refused any invasive procedure at this time. [facility] 10-10-2023 Note Remains on oxygen, d enied any worsening SOB [facility] 10-10-2023 Note [facility] II-III currentl y appears euvolemic without exacerbation Continue GDMT- ASA, lipitor, farxiga, lisinopril, toprol, aldactone and Diuretic therapy- bumex 2 mg bid Monitor daily weights, I&O, fluid restriction 1.5-2L/day, renal function and electrolytes- please maintain K+>4 and Mg > 2 [facility] 10-10-2023 Note HTN well controlled 101/55 Continue toprol, lisinopril, aldactone [facility] 10-10-2023 Note UTP CARDIOLOGY PROGR ESS [...] the echocardiogram performed in June 2020 at [facility]. Previously he sustained GI bleeding and underwent investigation of the [facility] clinic. He recovered from that. [...] procedures. On 11/18/2021 he was admitted to [facility] with decompensated heart failure. 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 He underwent diuresis. Right heart catheterization on 11/21/2021 showed elevated filling pressures. Transesophageal echocardiogram showed moderately reduced systolic function with an ejection fraction of 30 to 35% and severe mitral regurgitation. Since last visit he has been doing about the same. He continues to be on oxygen therapy continuously. 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 this was stopped. He is currently under treatment with a new derrick boat operator and his anemia is being managed [...] June 2023 he was admitted to the [facility] with low hemoglobin and received [...] 3 (CMS/HCC) Ch (more content not included)... [facility] 10-10-2023 Note Patient here for 2 w [facility] [place] follow up per Dr. Gomez. He is [...] All other systems reviewed and are negative. [facility] 09-29-2023 Note [facility] Subjective Sandip Broussard is a [...] the echocardiogram performed in June 2020 at [facility]. Previously he sustained GI bleeding and underwent investigation of the [facility] clinic. He recovered from that. [...] procedures. On 11/18/2021 he was admitted to [facility] with decompensated heart failure. 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 He underwent diuresis. Right heart catheterization on 11/21/2021 showed elevated filling pressures. Transesophageal echocardiogram showed moderately reduced systolic function with an ejection fraction of 30 to 35% and severe mitral regurgitation. Since last visit he has been doing about the same. He continues to be on oxygen therapy continuously. 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 this was stopped. He is currently under treatment with a new derrick boat operator and his anemia is being managed [...] he was admi (more content not included)... [facility] 09-22-2023 Note Chief Complaint Re-Referral *possible [...] family member reports is preferred by his floor waxer due to hx of heart failure. Discussed [...] becomes bothersome/infected. Follow-up With When Contact Information Elena DO MD, [facility] [address] [place] [phone]- [phone] Additional Instructions: 6 mos (no labs) Patient [...] hypoxia Chronic systolic congestive heart failure Follicular [facility] discharge follow-up Immunodeficiency due to drugs Incomplete [...] conduit. Medications aspi (more content not included)... [facility] Comment on above: Result Comment: Elec tronically Signed By: Elena DO MD\.br\Date and Time Signed: 09/22/23 14:33 EST\.br\Electronically Co-Signed By: Radha Aldana\.br\Date and Time Co-Signed: 09/22/23 14:32 EST 08-29-2023 Note [facility] Subjective Sandip Broussard is a [...] the echocardiogram performed in June 2020 at [facility]. Previously he sustained GI bleeding and underwent investigation of the [facility] clinic. He recovered from that. [...] procedures. On 11/18/2021 he was admitted to [facility] with decompensated heart failure. 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 He underwent diuresis. Right heart catheterization on 11/21/2021 showed elevated filling pressures. Transesophageal echocardiogram showed moderately reduced systolic function with an ejection fraction of 30 to 35% and severe mitral regurgitation. Since last visit he has been doing about the same. He continues to be on oxygen therapy continuously. 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 this was stopped. He is currently under treatment with a new derrick boat operator and his anemia is being managed [...] June 2023 he was admitted to the [facility] (more content not included)... [facility] 07-17-2023 Note Patient here for [facility]. He was recently admitted with [...] All other systems reviewed and are negative. [facility] 07-17-2023 Note [facility] Subjective Sandip Broussard is a [...] the echocardiogram performed in June 2020 at [facility]. Previously he sustained GI bleeding and underwent investigation of the [facility] clinic. He recovered from that. [...] procedures. On 11/18/2021 he was admitted to [facility] with decompensated heart failure. 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 He underwent diuresis. Right heart catheterization on 11/21/2021 showed elevated filling pressures. Transesophageal echocardiogram showed moderately reduced systolic function with an ejection fraction of 30 to 35% and severe mitral regurgitation. Since last visit he has been doing about the same. He continues to be on oxygen therapy continuously. 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 this was stopped. He is currently under treatment with a new derrick boat operator and his anemia is being managed [...] states he feels (more content not included)... [facility] 07-16-2023 Note [id number] [facility] 03-14-2023 Note [facility] Subjective Sandip A Berberick is a 82 y.o. year old male [...] the echocardiogram performed in June 2020 at [facility]. Previously he sustained GI bleeding and underwent investigation of the [facility] clinic. He recovered from that. [...] procedures. On 11/18/2021 he was admitted to [facility] with decompensated heart failure. 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 He underwent diuresis. Right heart catheterization on 11/21/2021 showed elevated filling pressures. Transesophageal echocardiogram showed moderately reduced systolic function with an ejection fraction of 30 to 35% and severe mitral regurgitation. Since last visit he has been doing about the same. He continues to be on oxygen therapy continuously. 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 this was stopped. He is currently under treatment with a new derrick boat operator and his anemia is being managed [...] BP Cuff Si (more content not included)... [facility] 02-26-2023 Hospital Discharge instructions Follow Up Care 02/26/2023 08:42:11 With:Jose Lu Address: [facility] [address] [place] [phone] Business (1) When: Unknown Comments:Labs todayFecal occult stool testingUrinalysis with micro todayWeekly CBC with differential and type and cross and transfuse if hemoglobin less than 8.0 at [facility].CMP and LDH every [address] Mercer for palliative management.Return in 6 weeks. [facility] 12-31-2022 Miscellaneous Notes Patient notified to make appt for refill documented in this encounter [facility] 11-20-2022 Miscellaneous Notes Concha @ [facility] notified and verbalizes understanding. Angle Kamara RN Images from the original note were not included. Per Dr. Hummel's check out note this afternoon: All appointments were cancelled. Images from the original note were not included. Bobbi Mehta [facility] You; Wilfred Martinez APRN.FRINGE WEAVER; Asher Hummel MD; Roman Clerical Pool; [facility] Pool 14 minutes ago (3:54 PM) LAN Asher, Do they realize the cost of Luspatercept? luspatercept-aamt 25 mg Solr [[id number]] Amount to Base Charge on: 125 mg Package: 1 Each Vial (24668-911-84) Charge Dropped: [phone] Bobbi: Concha Avendaño @ [facility] notified of cost and frequency of [...] hospice told them otherwise. Call placed to [facility]. Spoke w/ Concha, who confirms spouse's statement. Per Concha, they will cover all lab, transfusions, and treatment since Dr Hummel feels the pt has a less than 6 months prognosis w/ or w/o treatment. Pt's spouse notified of the above and verbalizes understanding. Will be in this afternoon as scheduled. Pharmacy/Clerical: MARII...... Angle Kamara RN documented in this encounter [facility] 11-20-2022 Instructions Asher Hummel MD - 11/20/2022 4:13 PM EDT Continue with Hospice Cancel treatment appointments Cancel appointments with [facility] RTC PRN Ok to get PRN transfusions based on symptoms. documented in this encounter [facility] 11-20-2022 History of Present illness Narrative Images [...] which included preparing to see the patient, nckw-qi-jnrp patient care, completing clinical documentation, obtaining and/or reviewing separately obtained history, performing a medically appropriate examination, counseling and educating the patient/family/caregiver, communicating with other HCPs (not separately reported), independently interpreting results (not separately reported), communicating results to the patient/family/caregiver, and care coordination (not separately reported) Asher Hummel MD, CPE Hematology and Oncology Services Provided at: [place], [place] . documented in this encounter [facility] 11-20-2022 Nurse Note Patients would like to know if it is normal to get a blood transfusion in 4 hours? It used to be 8 hours now they are pushing it thru faster. Also could that result in fluid overload? Opal Campbell MA documented in this encounter [facility] 11-19-2022 Miscellaneous Notes Concha @ [facility] notified. Copy of this encounter along w/ office notes faxed to [phone]. Angle Kamara RN Yes - I agree Brynn: Pt was discharged from [facility] to [facility]. Hospice calls today regarding pt's transfusion needs. Notes that they can continue transfusing for symptom management if you believe that w/ or w/o treatment the pt would have a less than 6 month prognosis. Do you agree? Angle Kamara RN documented in this encounter [facility] 11-06-2022 Miscellaneous Notes Faxed orders to [place] scheduling and also left a message. Ada Perez Preliminary CBC shows hgb of 6.5. Transfusion orders written per Dr Hummel. Pt's spouse notified and verbalizes understanding. Orders given to MARII Caballero, for scheduling. Angle Kamara RN documented in this encounter [facility] 11-06-2022 Miscellaneous Notes Patient came in for lab draw this afternoon per spouse they did not want to stay wait for results, requested to have nurse call them with results. Please call patient and spouse at [phone]. Thank you. Emily Horan Pss documented in this encounter [facility] 10-24-2022 Miscellaneous Notes Patient has been scheduled for transfusion tomorrow @ [place] @ 8 am. He will need to go today for TSC. Call placed to patient/spouse no answer. Left detailed message with this information on voicemail. Ada Perez Pt's spouse calls requesting yesterday's CBC results. Hgb 7.4. Informed spouse that we would be ordering a blood transfusion to be done @ [facility]. Spouse verbalizes understanding. Transfusion orders signed per Dr Hummel and given to MARII Piedra, for scheduling. Angle Kamara RN documented in this encounter [facility] 10-23-2022 History of Present illness Narrative Went to lobby to inform pt of lab results and pt had already left. documented in this encounter [facility] 10-17-2022 Miscellaneous Notes [facility] Lab calls regarding transfusion order written on 10/16/22. Notes the H&H box must be marked. Per lab, the order they have has the box crossed out and NO marked next to it. Requesting we send a new order w/ the H&H box clearly marked. New order received from Dr Hummel and faxed to [facility] @ [phone]. Angle Kamara RN documented in this encounter [facility] 10-16-2022 History of Present illness Narrative Pt provided with CBC result from today per request. HgB 6.4. Transfusion orders rec'd from Dr Arias. Pt to PSS for scheduling of PRBC'S. Fide Puente RN documented in this encounter [facility] 10-15-2022 Nurse Note Clinical questionnaires incomplete due to Patient declined to complete or answer questions with nurse Additional intake questions: Has the patient had fever, nausea, vomiting, diarrhea, constipation, fatigue for > 1 week? Yes, fatigue and Provider Notified Does the patient have a decreased appetite? Yes Does patient want to see a Oracle Fusion Middleware Architect? No (yes to any of above refer patient to schedulers for dietitian appointment) ) Does patient have any new or increased numbness or tingling of extremities? No Is patient interested in fertility information? No Does patient need any prescription refills? No Does patient have an advanced directive in place? No, Patient referred to [facility] documented in this encounter [facility] 10-15-2022 History of Present illness Narrative [place] [address] [place] CLINIC NOTE NAME: SANDIP BROUSSARD [facility] #: [id number] DATE: 10/15/2022 AGE: 81 PHYSICIAN: Kim López M.D. The patient is an 81-year-old gentleman [...] otherwise return to clinic in 2 months. Kim López M.D. AA:[id number] / documented in this encounter [facility] 10-02-2022 Miscellaneous Notes 1 unit packed RBC's at [facility] 10-03-22 11am. Orders were faxed and they called the patient's documented in this encounter [facility] 09-25-2022 Miscellaneous Notes Pt's spouse calls requesting the results of his CBC from today. Hgb 6.9. Transfusion ordered per Dr Hummel. Spouse notified and will go to [facility] for type and screen. Transfusion orders given to Tello for scheduling. Angle Kamara RN documented in this encounter [facility] 09-18-2022 Instructions Asher Hummel MD - 09/18/2022 1:56 PM EST Continue luspatercept SQ today and q 3 weeks B12 shot today every 3 weeks Check CBC every Friday - stay for results Keep Hgb > 8 Check CMP every 3 weeks Recommended ensure/boost for increased calories. RTC in 3 weeks - see Wilfred documented in this encounter [facility] 09-18-2022 History of Present illness Narrative Images from the original note were not included. NAME: Sandip Broussard CLINIC NO.: [id number] DATE OF SERVICE: September 18, 2022 (Estephanie) Some elements in this clinic note that are critical to medical decision making have been carefully reviewed and included from a prior clinic note dated: August 28, 2022 (Estephanie) Referring Provider: Dr. Flash Pearl Additional Clinicians involved in Sandip Broussard's care: Dr. José Luis Velasquez, Dr. Oumou Mandel, Dr. Karen López CC: MDS ASSESSMENT: 81 year old year [...] Epo usage. 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 He was transfused, and medically managed after catheterization. 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 He was requiring transfusion of PRBCs every 3-4 weeks and there was question of if he was responding to Vidaza. He was seen by Dr. López (her input is much appreciated) who recommended [...] TET2 p.?, [id number], c.4182+1G>A VAF: 44.5% TET2 p.[id number], [id number], c.5618T>C VAF: 40% ZRSR2 p.R30Vfs*8, [id number], [...] happy with prognosis laid out by Dr. López. Dr. López and I spoke about his treatment plan [...] shortness of breath. Has appointment with Dr. López next week. Updated Visit, July 01, 2022: Stable No significant new symptoms - dyspnea is unchanged. Was transfused last week with 2 units with Hgb 8.1 - today is 8.3. Will hold off for [address] López on 07/16/2022 Updated Visit, June 24, 2022: [...] them. Will discuss with my colleague Dr. López with respect to starting Dacogen. 04/25/2022 : [...] Visit, April 22, 2022: Patient saw Dr. López (recommendations are above). Feels about the same. Hgb today is 7.5 Bone marrow scheduled for 04/25/22 Updated Visit, April 08, 2022: Hgb 8.1 today after transfusion 5 days ago. Due to See Dr. López next 04/18/2022 Will cancel Vidaza for now. [...] his Lissette and was seen by Dr. Mandel approximately 1 week ago from ENT. Patient [...] blood. Operated on nose- surgery w/ Dr. yHde Last fall in [place]. Has tranexamic acid at home. Requesting ENT referral at [facility]. He is dehydrated and not keeping up with fluids. 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 Since stopping the aspirin he has not [...] which included preparing to see the patient, svah-sf-ezgc patient care, completing clinical documentation, performing a medically appropriate examination, counseling and educating the patient/family/caregiver, ordering medications, tests, or procedures, communicating with other HCPs (not separately reported), independently interpreting results (not separately reported), and communicating results to the patient/family/caregiver. Asher Hummel MD, CPE Hematology and Oncology Services Provided at: [place], [place] CC: Dr. Flash Gomez (Cardiology [facility]) Dr. Oumou López documented in this encounter [facility] 09-12-2022 Miscellaneous Notes Patient is called and scheduled Called [facility] waiting on a call back Pt's spouse notified of results and need for transfusion. Verbalizes understanding. Clerical: Tello has orders and will be scheduling his transfusion. Angle Kamara RN Pt's spouse requesting to be called w/ today's hgb results. Preliminary hgb - 7.2 Call placed to pt's spouse. No answer. Message left requesting call back. Angle Kamara RN documented in this encounter [facility] 09-04-2022 Miscellaneous Notes 2 units Packed RBC's at [facility] on Friday09-06-22 lab on . Orders and cbc were faxed to [facility].Patient has been notified documented in this encounter [facility] 08-28-2022 Instructions Asher Hummel MD - 08/28/2022 3:36 PM EST Start luspatercept SQ q 3 weeks Check CBC every Friday Keep gb > 8 Check CMP every 3 weeks Recommended ensure/boost for increased calories. RTC in 3 weeks documented in this encounter [facility] 08-28-2022 History of Present illness Narrative Images from the original note were not included. NAME: Sandip Broussard CLINIC NO.: [id number] DATE OF SERVICE: August 28, 2022 (Estephanie) Some elements in this clinic note that are critical to medical decision making have been carefully reviewed and included from a prior clinic note dated: August 21, 2022 (Michelle) Referring Provider: Dr. Flash Pearl Additional Clinicians involved in Sandip Broussard's care: Dr. José Luis Velasquez, Dr. Oumou Mandel, Dr. Karen López CC: MDS ASSESSMENT: 81 year old year [...] Epo usage. 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 He was transfused, and medically managed after catheterization. 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 He was requiring transfusion of PRBCs every 3-4 weeks and there was question of if he was responding to Vidaza. He was seen by Dr. López (her input is much appreciated) who recommended [...] TET2 p.?, [id number], c.4182+1G>A VAF: 44.5% TET2 p.U9300Y, [id number], c.5618T>C VAF: 40% ZRSR2 p.R30Vfs*8, NM_005089.3, [...] Nicki. They had a pretty bad week. iNcki - bladder cancer Pipes froze Wasn't too happy with prognosis laid out by Dr. López. Dr. López and I spoke about his treatment plan [...] shortness of breath. Has appointment with Dr. López next week. Updated Visit, July 01, 2022: Stable No significant new symptoms - dyspnea is unchanged. Was transfused last week with 2 units with Hgb 8.1 - today is 8.3. Will hold off for [address] López on 07/16/2022 Updated Visit, June 24, 2022: [...] them. Will discuss with my colleague Dr. López with respect to starting Dacogen. 04/25/2022 : [...] Visit, April 22, 2022: Patient saw Dr. López (recommendations are above). Feels about the same. Hgb today is 7.5 Bone marrow scheduled for 04/25/22 Updated Visit, April 08, 2022: Hgb 8.1 today after transfusion 5 days ago. Due to See Dr. López next 04/18/2022 Will cancel Vidaza for now. [...] his Lissette and was seen by Dr. Mandel approximately 1 week ago from ENT. Patient [...] surgery w/ Dr. Hyde Last fall in [place]. Has tranexamic acid at home. Requesting ENT referral at [facility]. He is dehydrated and not keeping up with fluids. 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 Since stopping the aspirin he has not [...] which included preparing to see the patient, lnxa-qu-jjzx patient care, completing clinical documentation, performing a medically appropriate examination, counseling and educating the patient/family/caregiver, ordering medications, tests, or procedures, communicating with other HCPs (not separately reported), independently interpreting results (not separately reported), and communicating results to the patient/family/caregiver. Asher Hummel MD, CPE Hematology and Oncology Services Provided at: [place], [place] CC: Dr. Flash Gomez (Cardiology [facility]) Dr. Oumou López documented in this encounter [facility] 08-27-2022 Miscellaneous Notes Patient is already scheduled for f/u and treatment on Friday, 08/28. Angle Kamara RN Ordering today should be here sometime tomorrow, I would schedule Monday 08/28 or after. Thank you Guillermo Gusman rPh Images from the original note were not included. Asher Hummel MD You; [facility] Pool 1 hour ago (6:23 AM) Ok great. When will we be able to start him? Pharmacy: Please advise on the above. Thanks! Angle Kamara RN FYI: Call received from [facility]. Pt's appeal for Luspatercept has been approved from 07/30/22-11/11/22. Authorization #: [id number]. An approval letter will be mailed to our office as well. Angle Kamara RN documented in this encounter [facility] 08-22-2022 Miscellaneous Notes [facility] has transfusion orders for pt. Notes his orders are for leuko reduced and irradiated cells. Per nurse, the pt has never received irradiated cells in the past. Pt's chart reviewed. Prior orders are unmarked or for leuko reduced only. Discussed w/ Dr Edmondson who orders to cancel the order for irradiated. Rosetta @ [facility] notified and verbalizes understanding. Asks that we fax the corrected order to [phone]. Order faxed as requested. Angle Sessler, RN documented in this encounter [facility] 08-21-2022 Miscellaneous Notes 2 units packed RBC's at [facility] on 08-22-22. Lab today. Order and cbc were faxed to central scheduling. documented in this encounter [facility] 08-21-2022 History of Present illness Narrative Images from the original note were not included. NAME: Sandip Broussard [facility] NO.: [id number] DATE OF SERVICE: August 21, 2022 (Michelle) Some elements in this clinic note that are critical to medical decision making have been carefully reviewed and included from a prior clinic note dated: August 14, 2022. (Michelle) Referring Provider: Dr. Flash Pearl Additional Clinicians involved in Sandip Broussard's care: Dr. José Luis Velasquez, Dr. Oumou Mandel, Dr. Karen López CC: MDS ASSESSMENT: 81 year old year [...] Epo usage. 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 He was transfused, and medically managed after catheterization. 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 He was requiring transfusion of PRBCs every 3-4 weeks and there was question of if he was responding to Vidaza. He was seen by Dr. López (her input is much appreciated) who recommended [...] TET2 p.?, [id number], c.4182+1G>A VAF: 44.5% TET2 p.E0581K, [id number], c.5618T>C VAF: 40% ZRSR2 p.R30Vfs*8, NM_005089.3, [...] pretty bad week. Nicki - bladder cancer Kayla shea Wasn't too happy with prognosis laid out by Dr. López. Dr. López and I spoke about his treatment plan [...] shortness of breath. Has appointment with Dr. López next week. Updated Visit, July 01, 2022: Stable No significant new symptoms - dyspnea is unchanged. Was transfused last week with 2 units with Hgb 8.1 - today is 8.3. Will hold off for [address] López on 07/16/2022 Updated Visit, June 24, 2022: [...] them. Will discuss with my colleague Dr. López with respect to starting Dacogen. 04/25/2022 : [...] Visit, April 22, 2022: Patient saw Dr. López (recommendations are above). Feels about the same. Hgb today is 7.5 Bone marrow scheduled for 04/25/22 Updated Visit, April 08, 2022: Hgb 8.1 today after transfusion 5 days ago. Due to See Dr. López next 04/18/2022 Will cancel Vidaza for now. [...] his Lissette and was seen by Dr. Mandel approximately 1 week ago from ENT. Patient [...] surgery w/ Dr. Hyde Last fall in [place]. Has tranexamic acid at home. Requesting ENT referral at [facility]. He is dehydrated and not keeping up with fluids. 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 Since stopping the aspirin he has not [...] 09/17/2021 81 DIAGNOSIS: (D46.9) MDS (myelodysplastic syndrome) ([facility]) (primary encounter diagnosis) (N18.4, D63.1) Anemia of chronic renal failure, stage 4 (severe) ([facility]) (D50.0) Iron deficiency anemia due to chronic blood loss (N18.4) CRF (chronic renal failure), stage 4 (severe) ([facility]) (E83.111) 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 transfusions (N18.4) CKD (chronic kidney disease) stage 4, GFR 15-29 ml/min ([facility]) (I95.89, E86.1) Hypotension due to hypovolemia PAST MEDICAL HISTORY Diagnosis Date Anemia Anemia of chronic renal failure, stage 4 (severe) ([facility]) 08/23/2020 Atrial fibrillation (HCC) Chronic kidney disease CRF (chronic renal failure), stage 4 (severe) ([facility]) 08/23/2020 Diabetes mellitus ([facility]) GI bleed Hypertension Iron deficiency anemia due [...] APRN.CNP Hematology and Oncology Services Provided at: [place], [place] CC: Dr. Flash Gomez (Cardiology [facility]) Dr. Oumou López I spent a total of 30 minutes on the date of the service which included preparing to see the patient, mljs-aq-iasy patient care, completing clinical documentation, obtaining and/or reviewing separately obtained history, performing a medically appropriate examination, counseling and educating the patient/family/caregiver, ordering medications, tests, or procedures, independently interpreting results (not separately reported), and communicating results to the patient/family/caregiver. documented in this encounter [facility] 08-14-2022 Miscellaneous Notes Orders faxed to [facility] lab. [place] notified and confirms receipt. Angle Kamara RN Signed. Wilfred Martinez APRN.CNP [facility] is requesting an order for H&H. Order pended. Angle Kamara RN documented in this encounter [facility] 08-14-2022 Miscellaneous Notes Called and spoke with [...] notify . TY. documented in this encounter [facility] 08-14-2022 Miscellaneous Notes 2 units packed RBC's at [facility]. Left detailed message and faxed the order with cbc. They will call the patient to schedule this appointment. documented in this encounter [facility] 08-14-2022 History of Present illness Narrative Images from the original note were not included. NAME: Sandip Broussard [facility] NO.: [id number] DATE OF SERVICE: August 14, 2022 (Michelle) Some elements in this clinic note that are critical to medical decision making have been carefully reviewed and included from a prior clinic note dated: July. (Dr. Hummel) Referring Provider: Dr. Flash Pearl Additional Clinicians involved in Sandip Broussard's care: Dr. José Luis Velasquez, Dr. Oumou Mandel, Dr. Karen López CC: MDS ASSESSMENT: 81 year old year [...] Epo usage. 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 He was transfused, and medically managed after catheterization. 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 He was requiring transfusion of PRBCs every 3-4 weeks and there was question of if he was responding to Vidaza. He was seen by Dr. López (her input is much appreciated) who recommended [...] TET2 p.?, [id number], c.4182+1G>A VAF: 44.5% TET2 p.B7030R, [id number], c.5618T>C VAF: 40% ZRSR2 p.R30Vfs*8, NM_005089.3, [...] happy with prognosis laid out by Dr. López. Dr. López and I spoke about his treatment plan [...] shortness of breath. Has appointment with Dr. López next week. Updated Visit, July 01, 2022: Stable No significant new symptoms - dyspnea is unchanged. Was transfused last week with 2 units with Hgb 8.1 - today is 8.3. Will hold off for [address] López on 07/16/2022 Updated Visit, June 24, 2022: [...] them. Will discuss with my colleague Dr. López with respect to starting Dacogen. 04/25/2022 : [...] Visit, April 22, 2022: Patient saw Dr. López (recommendations are above). Feels about the same. Hgb today is 7.5 Bone marrow scheduled for 04/25/22 Updated Visit, April 08, 2022: Hgb 8.1 today after transfusion 5 days ago. Due to See Dr. López next 04/18/2022 Will cancel Vidaza for now. [...] his Lissette and was seen by Dr. Mandel approximately 1 week ago from ENT. Patient [...] surgery w/ Dr. Hyde Last fall in [place]. Has tranexamic acid at home. Requesting ENT referral at [facility]. He is dehydrated and not keeping up with fluids. 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 Since stopping the aspirin he has not [...] No family history on file. Wilfred Martinez APRN.FRINGE WEAVER Hematology and Oncology Services Provided at: [place], [place] CC: Dr. Flash Gomez (Cardiology [facility]) Dr. Oumou López I spent a total of 30 minutes on the date of the service which included preparing to see the patient, cosu-ym-phve patient care, completing clinical documentation, obtaining and/or reviewing separately obtained history, performing a medically appropriate examination, counseling and educating the patient/family/caregiver, ordering medications, tests, or procedures, independently interpreting results (not separately reported), and communicating results to the patient/family/caregiver. documented in this encounter [facility] 08-13-2022 Miscellaneous Notes Addended by: ASHER HUMMEL on: 08/13/2022 06:04 PM Modules accepted: Orders Patient has an appt on 08/14/22. Would you like labs, if so place orders.Opal Campbell MA documented in this encounter [facility] 08-07-2022 Instructions Asher Hummel MD - 08/07/2022 3:54 PM EST Continue weekly low dose decitabine Await luspatercept approval Transfusion needed tomorrow/Friday, hgb 7.2 RTC in 1 week for labs and continue treatment. Decitabine Retacrit Recommended ensure/boost for increased calories documented in this encounter [facility] 08-07-2022 History of Present illness Narrative Images from the original note were not included. NAME: Sandip Broussard CLINIC NO.: [id number] DATE OF SERVICE: August 07, 2022 (Estephanie) Some elements in this clinic note that are critical to medical decision making have been carefully reviewed and included from a prior clinic note dated: July 30, 2022 (Lori) Referring Provider: Dr. Flash Pearl Additional Clinicians involved in Sandip Broussard's care: Dr. José Luis Velasquez, Dr. Oumou Mandel, Dr. Karen López CC: MDS ASSESSMENT: 81 year old year [...] Epo usage. 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 He was transfused, and medically managed after catheterization. 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 He was requiring transfusion of PRBCs every 3-4 weeks and there was question of if he was responding to Vidaza. He was seen by Dr. López (her input is much appreciated) who recommended [...] TET2 p.?, [id number], c.4182+1G>A VAF: 44.5% TET2 p.W0668P, [id number], c.5618T>C VAF: 40% ZRSR2 p.R30Vfs*8, NM_005089.3, c.88delC VAF: 91.1% And the following variant(s) of uncertain significance: BCORL1 p.R72W NM_021946.4: c.214C>T VAF: 100% PLAN: Continue weekly low dose decitabine Await luspatercept approval Transfusion needed tomorrow/Luis Daniel, hgb 7.2 RTC in 1 week for labs and continue treatment. Decitabine Retacrit Recommended ensure/boost for increased calories TREATMENT TO DATE: . 05/20/2022 - Low dose Decitabine weekly. 3. [...] pretty bad week. Nicki - bladder cancer Pipronaldo shea Wasn't too happy with prognosis laid out by Dr. López. Dr. López and I spoke about his treatment plan [...] shortness of breath. Has appointment with Dr. López next week. Updated Visit, July 01, 2022: Stable No significant new symptoms - dyspnea is unchanged. Was transfused last week with 2 units with Hgb 8.1 - today is 8.3. Will hold off for [address] López on 07/16/2022 Updated Visit, June 24, 2022: [...] them. Will discuss with my colleague Dr. López with respect to starting Dacogen. 04/25/2022 : [...] Visit, April 22, 2022: Patient saw Dr. López (recommendations are above). Feels about the same. Hgb today is 7.5 Bone marrow scheduled for 04/25/22 Updated Visit, April 08, 2022: Hgb 8.1 today after transfusion 5 days ago. Due to See Dr. López next 04/18/2022 Will cancel Vidaza for now. [...] his Lissette and was seen by Dr. Mandel approximately 1 week ago from ENT. Patient [...] surgery w/ Dr. Hyde Last fall in [place]. Has tranexamic acid at home. Requesting ENT referral at [facility]. He is dehydrated and not keeping up with fluids. 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 Since stopping the aspirin he has not [...] which included preparing to see the patient, pzlu-zy-shax patient care, completing clinical documentation, obtaining and/or reviewing separately obtained history, performing a medically appropriate examination, counseling and educating the patient/family/caregiver, ordering medications, tests, or procedures, communicating with other HCPs (not separately reported), and independently interpreting results (not separately reported). Asher Hummel MD, CPE Hematology and Oncology Services Provided at: [place], [place] CC: Dr. Flash Gomez (Cardiology [facility]) Dr. Oumou López documented in this encounter [facility] 07-30-2022 History of Present illness Narrative Images from the original note were not included. NAME: Sandip Broussard NO.: [id number] DATE OF SERVICE: July 30, 2022 (Lori (Elements copied from Dr. Hummel's note dated July 23, 2022, have been reviewed and updated where appropriate, and all reflect current assessment and medical decision making during today's encounter, July 30, 2022) Referring Provider: Dr. Flash Pearl Additional Clinicians involved in Sandip Broussard's care: Dr. José Luis Velasquez, Dr. Oumou Mandel, Dr. Karen López CC: MDS ASSESSMENT: 81 year old year [...] Epo usage. 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 He was transfused, and medically managed after catheterization. 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 He was requiring transfusion of PRBCs every 3-4 weeks and there was question of if he was responding to Vidaza. He was seen by Dr. López (her input is much appreciated) who recommended [...] TET2 p.?, [id number], c.4182+1G>A VAF: 44.5% TET2 p.K8775J, [id number], c.5618T>C VAF: 40% ZRSR2 p.R30Vfs*8, NM_005089.3, [...] happy with prognosis laid out by Dr. López. Dr. López and I spoke about his treatment plan [...] shortness of breath. Has appointment with Dr. López next week. Updated Visit, July 01, 2022: Stable No significant new symptoms - dyspnea is unchanged. Was transfused last week with 2 units with Hgb 8.1 - today is 8.3. Will hold off for [address] López on 07/16/2022 Updated Visit, June 24, 2022: [...] them. Will discuss with my colleague Dr. López with respect to starting Dacogen. 04/25/2022 : [...] Visit, April 22, 2022: Patient saw Dr. López (recommendations are above). Feels about the same. Hgb today is 7.5 Bone marrow scheduled for 04/25/22 Updated Visit, April 08, 2022: Hgb 8.1 today after transfusion 5 days ago. Due to See Dr. López next 04/18/2022 Will cancel Vidaza for now. [...] his Lissette and was seen by Dr. Mandel approximately 1 week ago from ENT. Patient [...] surgery w/ Dr. Hyde Last fall in [place]. Has tranexamic acid at home. Requesting ENT referral at [facility]. He is dehydrated and not keeping up with fluids. 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 Since stopping the aspirin he has not [...] Sandoval PA-C CC: Dr. Flash Gomez (Cardiology [facility]) Dr. Oumou López documented in this encounter [facility] 07-25-2022 Miscellaneous Notes Pt's notified that pt did not receive Retacrit injection on 07/23. [facility], pt is being changed to Luspatercept due to not responding to Retacrit. Pts notified and verbalizes understanding. Pt will receive Luspatercept once approved by insurance. Miriam Elizabeth RN documented in this encounter [facility] 07-24-2022 Miscellaneous Notes [facility] called a critical HCT 22.2. Pt is scheduled for PRBC transfusion. They are faxing labs to scan into his chart. BRYNN: Please advise of any new orders Thank you, Fide documented in this encounter [facility] 07-23-2022 Miscellaneous Notes Orders received for 1 unit and 2 units of PRBC's. Confirmed with Dr. Hummel who stated 2 units. Call placed to [facility] and had to leave a message to schedule patient for transfusion on . Ada Perez documented in this encounter [facility] 07-23-2022 Instructions Asher Hummel MD - 07/23/2022 2:54 PM EST Continue low dose decitabine weekly x (Friday') Luspatercept when approved q 21 days. Retacrit today and weekly for Hgb < 12 RTC with 1 week on 07/30/2022 Labs same day. See Wilfred Transfuse this at [facility] x 1 unit documented in this encounter [facility] 07-23-2022 History of Present illness Narrative Images from the original note were not included. NAME: Sandip Broussard CLINIC NO.: [id number] DATE OF SERVICE: July 23, 2022 (Estephanie) Some elements in this clinic note that are critical to medical decision making have been carefully reviewed and included from a prior clinic note dated: July 15, 2022 (Estephanie) Referring Provider: Dr. Flash Pearl Additional Clinicians involved in Sandip Broussard's care: Dr. José Luis Velasquez, Dr. Oumou Mandel, Dr. Karen López CC: MDS ASSESSMENT: 81 year old year [...] Epo usage. 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 He was transfused, and medically managed after catheterization. 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 He was requiring transfusion of PRBCs every 3-4 weeks and there was question of if he was responding to Vidaza. He was seen by Dr. López (her input is much appreciated) who recommended [...] TET2 p.?, [id number], c.4182+1G>A VAF: 44.5% TET2 p.C8272T, [id number], c.5618T>C VAF: 40% ZRSR2 p.R30Vfs*8, NM_005089.3, c.88delC VAF: 91.1% And the following variant(s) of uncertain significance: BCORL1 p.R72W NM_021946.4: c.214C>T VAF: 100% PLAN: Continue low dose decitabine weekly x (Friday') Luspatercept when approved q 21 days. Retacrit today and weekly for Hgb < 12 RTC with 1 week on 07/30/2022 Labs same day. See Wilfred Transfuse this at [facility] x 1 unit TREATMENT TO DATE: 4. 05/20/2022 - Low dose Decitabine weekly. 3. 07/09/2021 - 04/08/2022: Vidaza D1-5 q 28. 2. Retacrit 80,000 units every week. 1. Intermittent IV Iron. HPI: Updated Visit, July 23, 2022: Lloyd returns with his Nicki. They had a pretty bad week. Nicki - bladder cancer Pipes froze Wasn't too happy with prognosis laid out by Dr. López. Dr. López and I spoke about his treatment plan [...] shortness of breath. Has appointment with Dr. López next week. Updated Visit, July 01, 2022: Stable No significant new symptoms - dyspnea is unchanged. Was transfused last week with 2 units with Hgb 8.1 - today is 8.3. Will hold off for [address] López on 07/16/2022 Updated Visit, June 24, 2022: [...] them. Will discuss with my colleague Dr. López with respect to starting Dacogen. 04/25/2022 : [...] Visit, April 22, 2022: Patient saw Dr. López (recommendations are above). Feels about the same. Hgb today is 7.5 Bone marrow scheduled for 04/25/22 Updated Visit, April 08, 2022: Hgb 8.1 today after transfusion 5 days ago. Due to See Dr. López next 04/18/2022 Will cancel Vidaza for now. [...] his Lissette and was seen by Dr. Mandel approximately 1 week ago from ENT. Patient [...] surgery w/ Dr. Hyde Last fall in [place]. Has tranexamic acid at home. Requesting ENT referral at [facility]. He is dehydrated and not keeping up with fluids. 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 Since stopping the aspirin he has not [...] which included preparing to see the patient, fiip-fe-szjw patient care, completing clinical documentation, obtaining and/or reviewing separately obtained history, performing a medically appropriate examination, counseling and educating the patient/family/caregiver, ordering medications, tests, or procedures, communicating with other HCPs (not separately reported), independently interpreting results (not separately reported), and communicating results to the patient/family/caregiver. Asher Hummel MD, CPE Hematology and Oncology Services Provided at: [place], [place] CC: Dr. Flash Gomez (Cardiology [facility]) Dr. Oumou López documented in this encounter [facility] 07-18-2022 Miscellaneous Notes Pt's spouse notified and [...] Angle Kamara RN documented in this encounter [facility] 07-16-2022 Nurse Note Additional intake questions: Has the patient had fever, nausea, vomiting, diarrhea, constipation, fatigue for > 1 week? Yes, diarrhea ( 1 times in last 24 hours), fatigue, SOB, and Provider Notified Does the patient have a decreased appetite? No Does patient want to see a [employer] Architect? No (yes to any of above refer [...] Matt Christianson LPN documented in this encounter [facility] 07-16-2022 History of Present illness Narrative [place] [address] [place] CLINIC NOTE NAME: SANDIP BROUSSARD CLINIC #: [id number] DATE: 07/16/2022 AGE: 81 PHYSICIAN: Kim López M.D. The patient is an 81-year-old gentleman with myelodysplastic syndrome who presents today for further followup. He is followed by Dr. Hmumel in the region. HISTORY OF PRESENT ILLNESS: [...] data presented at the national annual meeting [employer] 2021 has demonstrated a [...] continue follow up locally in the interim Kim López M.D. [id number] /[id number] documented in this encounter [facility] 07-15-2022 Miscellaneous Notes 1 unit packed RBC's at [facility] on 07-18-22 10am. Lab on Friday07-16-22 11am. Orders and cbc were faxed to [facility]. documented in this encounter [facility] 07-15-2022 Instructions Asher Hummel MD - 07/15/2022 2:56 PM EST Continue low dose decitabine weekly x 2 days (Friday and Friday normally) This week plan second dose on with labs Retacrit today and weekly for Hgb < 12 RTC with 1 week on 07/23/2022 Labs same day. Transfuse on at [facility] documented in this encounter [facility] 07-15-2022 History of Present illness Narrative Images from the original note were not included. NAME: Sandip Broussard CLINIC NO.: [id number] DATE OF SERVICE: July 15, 2022 (bannergeraldo) Some elements in this clinic note that are critical to medical decision making have been carefully reviewed and included from a prior clinic note dated: July 08, 2022 (Estephanie) Referring Provider: Dr. Flash Pearl Additional Clinicians involved in Sandip Broussard's care: Dr. José Luis Velasquez, Dr. Oumou Mandel, Dr. Karen López CC: MDS ASSESSMENT: 81 year old year [...] Epo usage. 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 He was transfused, and medically managed after catheterization. 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 He was requiring transfusion of PRBCs every 3-4 weeks and there was question of if he was responding to Vidaza. He was seen by Dr. López (her input is much appreciated) who recommended [...] Will look for additional direction from Dr. López after she sees him tomorrow. NGS Heme: TET2 p.?, [id number], c.4182+1G>A VAF: 44.5% TET2 p.E9605P, [id number], c.5618T>C VAF: 40% ZRSR2 p.R30Vfs*8, NM_005089.3, [...] 07/23/2022 Labs same day. Transfuse on at [facility] x 1 unit TREATMENT TO DATE: 4. [...] shortness of breath. Has appointment with Dr. López next week. Updated Visit, July 01, 2022: Stable No significant new symptoms - dyspnea is unchanged. Was transfused last week with 2 units with Hgb 8.1 - today is 8.3. Will hold off for [address] López on 07/16/2022 Updated Visit, June 24, 2022: [...] them. Will discuss with my colleague Dr. López with respect to starting Dacogen. 04/25/2022 : [...] Visit, April 22, 2022: Patient saw Dr. López (recommendations are above). Feels about the same. Hgb today is 7.5 Bone marrow scheduled for 04/25/22 Updated Visit, April 08, 2022: Hgb 8.1 today after transfusion 5 days ago. Due to See Dr. López next 04/18/2022 Will cancel Vidaza for now. [...] his Lissette and was seen by Dr. Mandel approximately 1 week ago from ENT. Patient [...] surgery w/ Dr. Hyde Last fall in [place]. Has tranexamic acid at home. Requesting ENT referral at [facility]. He is dehydrated and not keeping up with fluids. 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 Since stopping the aspirin he has not [...] which included preparing to see the patient, [id number]-zr-[id number] patient care, completing clinical documentation, obtaining and/or reviewing separately obtained history, performing a medically appropriate examination, counseling and educating the patient/family/caregiver, ordering medications, tests, or procedures, communicating with other HCPs (not separately reported), independently interpreting results (not separately reported), and communicating results to the patient/family/caregiver. Asher Hummel MD, CPE Hematology and Oncology Services Provided at: [place], [place] CC: Dr. Flash Gomez (Cardiology [facility]) Dr. Oumou López documented in this encounter [facility] 07-11-2022 Miscellaneous Notes Yes. 2 units ordered per Radha on 07/08/22. Angle Kamara RN ----- Message from Asher Hummel MD sent at 07/09/2022 8:04 PM EST ----- Did we transfuse? documented in this encounter [facility] 07-08-2022 Miscellaneous Notes Haydee called stating she will call patient's to get him set up. Ada Perez Left message w/ [place] scheduling to get patient set up for transfusion. Ada Perez documented in this encounter [facility] 07-08-2022 History of Present illness Narrative Images from the original note were not included. NAME: Sandip Broussard [facility] NO.: [id number] DATE OF SERVICE: July 08, 2022 (Estephanie) (Elements copied from Dr. Hummel's note dated July 01, 2022, have been reviewed and updated where appropriate, and all reflect current assessment and medical decision making during today's encounter, July 08, 2022) Referring Provider: Dr. Flash Pearl Additional Clinicians involved in Sandip Broussard's care: Dr. José Luis Velasquez, Dr. Oumou Mandel CC: MDS ASSESSMENT: 81 year old year [...] Epo usage. 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 He was transfused, and medically managed after catheterization. 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 He was requiring transfusion of PRBCs every 3-4 weeks and there was question of if he was responding to Vidaza. He was seen by Dr. López (her input is much appreciated) who recommended [...] TET2 p.?, [id number], c.4182+1G>A VAF: 44.5% TET2 p.M4943X, [id number], c.5618T>C VAF: 40% ZRSR2 p.R30Vfs*8, NM_005089.3, c.88delC VAF: 91.1% And the following variant(s) of uncertain significance: BCORL1 p.R72W [id number]: c.214C>T VAF: 100% Patient continues to require transfusions of PRBCs every 1-2 weeks to keep hgb >8.0. Today he is 7.4. Will proceed with low dose decitabine x 2days every week as well as retacrit. He has a follow up 07/16/[address] López. We will see him in 1 week. [...] shortness of breath. Has appointment with Dr. López next week. Updated Visit, July 01, 2022: Stable No significant new symptoms - dyspnea is unchanged. Was transfused last week with 2 units with Hgb 8.1 - today is 8.3. Will hold off for [address] López on 07/16/2022 Updated Visit, June 24, 2022: [...] them. Will discuss with my colleague Dr. López with respect to starting Dacogen. 04/25/2022 : [...] Visit, April 22, 2022: Patient saw Dr. López (recommendations are above). Feels about the same. Hgb today is 7.5 Bone marrow scheduled for 04/25/22 Updated Visit, April 08, 2022: Hgb 8.1 today after transfusion 5 days ago. Due to See Dr. López next 04/18/2022 Will cancel Vidaza for now. [...] Patient received 2 units of PRBC on 7/12/22 for hgb of 6.8. Saw cardiology today [...] his Lissette and was seen by Dr. Mandel approximately 1 week ago from ENT. Patient [...] surgery w/ Dr. Hyde Last fall in [place]. Has tranexamic acid at home. Requesting ENT referral at [facility]. He is dehydrated and not keeping up with fluids. 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 Since stopping the aspirin he has not [...] Sandoval PA-C CC: Dr. Flash Gomez (Cardiology [facility]) Dr. Oumou López documented in this encounter [facility] 07-01-2022 Miscellaneous Notes Addended by: ASHER HUMMEL on: 07/01/2022 03:13 PM Modules accepted: Orders documented in this encounter [facility] 07-01-2022 Instructions Asher Hummel MD - 07/01/2022 2:38 PM EST Continue low dose decitabine weekly x 2 days (Friday and Friday) Retacrit today and weekly for Hgb < 12 RTC with Wilfred Garcia in 1 week Labs same day. documented in this encounter [facility] 07-01-2022 History of Present illness Narrative Images from the original note were not included. NAME: Sandip Broussard CLINIC NO.: [id number] DATE OF SERVICE: July 01, 2022 (Estephanie) Some elements in this clinic note that are critical to medical decision making have been carefully reviewed and included from a prior clinic note dated: June 24, 2022 (Michelle) Referring Provider: Dr. Flash Pearl Additional Clinicians involved in Sandip Broussard's care: Dr. José Luis Velasquez, Dr. Oumou Mandel CC: MDS ASSESSMENT: 81 year old year [...] Epo usage. 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 He was transfused, and medically managed after catheterization. 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 He was requiring transfusion of PRBCs every 3-4 weeks and there was question of if he was responding to Vidaza. He was seen by Dr. López (her input is much appreciated) who recommended [...] TET2 p.?, [id number], c.4182+1G>A VAF: 44.5% TET2 p.W2285G, [id number], c.5618T>C VAF: 40% ZRSR2 p.R30Vfs*8, NM_005089.3, [...] off for [address] López on 07/16/2022 Updated Visit, June 24, 2022: [...] them. Will discuss with my colleague Dr. López with respect to starting Dacogen. 04/25/2022 : [...] Visit, April 22, 2022: Patient saw Dr. López (recommendations are above). Feels about the same. Hgb today is 7.5 Bone marrow scheduled for 04/25/22 Updated Visit, April 08, 2022: Hgb 8.1 today after transfusion 5 days ago. Due to See Dr. López next 04/18/2022 Will cancel Vidaza for now. [...] his Lissette and was seen by Dr. Mandel approximately 1 week ago from ENT. Patient [...] surgery w/ Dr. Hyde Last fall in [place]. Has tranexamic acid at home. Requesting ENT referral at [facility]. He is dehydrated and not keeping up with fluids. 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 Since stopping the aspirin he has not [...] which included preparing to see the patient, mewy-xv-reue patient care, completing clinical documentation, performing a medically appropriate examination, counseling and educating the patient/family/caregiver, ordering medications, tests, or procedures, and independently interpreting results (not separately reported). Asher Hummel MD, CPE Hematology and Oncology Services Provided at: [place], [place] CC: Dr. Flash Gomez (Cardiology [facility]) Dr. Oumou López documented in this encounter [facility] 06-24-2022 History of Present illness Narrative Patient to get a transfusion per Amy. Lexi Velasquez RN documented in this encounter [facility] 06-24-2022 History of Present illness Narrative Images from the original note were not included. NAME: Sandip Broussard CLINIC NO.: [id number] DATE OF SERVICE: June 24, 2022 (Michelle) Some elements in this clinic note that are critical to medical decision making have been carefully reviewed and included from a prior clinic note dated: June 10, 2022. (Dr. Hummel) Referring Provider: Dr. Flash Pearl Additional Clinicians involved in Sandip Broussard's care: Dr. José Luis Velasquez, Dr. Oumou Mandel CC: MDS ASSESSMENT: 81 year old year [...] Epo usage. 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 He was transfused, and medically managed after catheterization. 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 He was requiring transfusion of PRBCs every 3-4 weeks and there was question of if he was responding to Vidaza. He was seen by Dr. López (her input is much appreciated) who recommended [...] TET2 p.?, [id number], c.4182+1G>A VAF: 44.5% TET2 p.P0718M, [id number], c.5618T>C VAF: 40% ZRSR2 p.R30Vfs*8, NM_005089.3, c.88delC VAF: 91.1% And the following variant(s) of uncertain significance: BCORL1 p.R72W NM_021946.4: c.214C>T VAF: 100% PLAN: Continue low dose decitabine weekly x 2 days (Friday and Friday) Retacrit today and weekly for Hgb < 12 Transfuse 2 unit PRBCs for Hgb < 8.5 (This week on Friday @ [facility] please) Follow up in 1 week with [...] them. Will discuss with my colleague Dr. López with respect to starting Dacogen. 04/25/2022 : [...] Visit, April 22, 2022: Patient saw Dr. López (recommendations are above). Feels about the same. Hgb today is 7.5 Bone marrow scheduled for 04/25/22 Updated Visit, April 08, 2022: Hgb 8.1 today after transfusion 5 days ago. Due to See Dr. López next 04/18/2022 Will cancel Vidaza for now. [...] his Lissette and was seen by Dr. Mandel approximately 1 week ago from ENT. Patient [...] surgery w/ Dr. Hyde Last fall in [place]. Has tranexamic acid at home. Requesting ENT referral at [facility]. He is dehydrated and not keeping up with fluids. 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 Since stopping the aspirin he has not [...] APRN.CNP Hematology and Oncology Services Provided at: [place], [place] CC: Dr. Flash Gomez (Cardiology [facility]) Dr. Oumou López I spent a total of 30 minutes on the date of the service which included preparing to see the patient, howr-ez-aebv patient care, completing clinical documentation, obtaining and/or reviewing separately obtained history, performing a medically appropriate examination, counseling and educating the patient/family/caregiver, ordering medications, tests, or procedures, independently interpreting results (not separately reported), and communicating results to the patient/family/caregiver. documented in this encounter [facility] 06-17-2022 Miscellaneous Notes 1 unit packed RBC's at [facility] on Fri06-19-22 9am. Patient to do his lab on Friday06-17-22. documented in this encounter [facility] 06-17-2022 Instructions Asher Hummel MD - 06/17/2022 10:40 AM EST Continue low dose decitabine weekly x 2 days (Fri, Fri) Retacrit today and weekly for Hgb < 12 Transfuse 2 unit PRBCs for Hgb < 8.5 (this week on Friday @ [facility] please) Labs again once / week here RTC in 1 weeks - with labs - see Michelle documented in this encounter [facility] 06-17-2022 History of Present illness Narrative Images from the original note were not included. NAME: Sandip Broussard CLINIC NO.: [id number] DATE OF SERVICE: June 17, 2022 (Estephanie) Some elements in this clinic note that are critical to medical decision making have been carefully reviewed and included from a prior clinic note dated: June 10, 2022 (Radha Sandoval PA-C) Referring Provider: Dr. Flash Pearl Additional Clinicians involved in Sandip Broussard's care: Dr. José Luis Velasquez, Dr. Oumou Mandel CC: MDS ASSESSMENT: 81 year old year [...] Epo usage. 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 He was transfused, and medically managed after catheterization. 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 He was requiring transfusion of PRBCs every 3-4 weeks.and there was question of if he was responding to Vidaza. He was seen by Dr. López (her input is much appreciated) who recommended [...] TET2 p.?, [id number], c.4182+1G>A VAF: 44.5% TET2 p.B0287V, [id number], c.5618T>C VAF: 40% ZRSR2 p.R30Vfs*8, NM_005089.3, c.88delC VAF: 91.1% And the following variant(s) of uncertain significance: BCORL1 p.R72W NM_021946.4: c.214C>T VAF: 100% PLAN: Continue low dose decitabine weekly x 2 days (Mon, Fri) Retacrit today and weekly for Hgb < 12 Transfuse 2 unit PRBCs for Hgb < 8.5 (this week on Friday @ [facility] please) Labs again once / week here [...] them. Will discuss with my colleague Dr. López with respect to starting Dacogen. 04/25/2022 : [...] Visit, April 22, 2022: Patient saw Dr. López (recommendations are above). Feels about the same. Hgb today is 7.5 Bone marrow scheduled for 04/25/22 Updated Visit, April 08, 2022: Hgb 8.1 today after transfusion 5 days ago. Due to See Dr. López next 04/18/2022 Will cancel Vidaza for now. [...] his Lissette and was seen by Dr. Mandel approximately 1 week ago from ENT. Patient [...] surgery w/ Dr. Hyde Last fall in [place]. Has tranexamic acid at home. Requesting ENT referral at [facility]. He is dehydrated and not keeping up with fluids. 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 Since stopping the aspirin he has not [...] which included preparing to see the patient, jmfx-ln-qtyb patient care, completing clinical documentation, performing a medically appropriate examination, counseling and educating the patient/family/caregiver, ordering medications, tests, or procedures, and independently interpreting results (not separately reported). Asher Hummel MD, CPE Hematology and Oncology Services Provided at: [place], [place] CC: Dr. Flash Gomez (Cardiology [facility]) MD Kim Merlos MD documented in this encounter [facility] 06-10-2022 History of Present illness Narrative NAME: Sandip Broussard CLINIC NO.: [id number] DATE OF SERVICE: June 10, 2022 (Radha Sandoval PA-C ) Some elements in this clinic note that are critical to medical decision making have been carefully reviewed and included from a prior clinic note dated: June 03, 2022 (Estephanie) Referring Provider: Dr. Flash Pearl Additional Clinicians involved in Sandip Broussard's care: Dr. José Luis Velasquez, Dr. Oumou Mandel CC: Follow up ASSESSMENT: 81 year old [...] Epo usage. 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 He was transfused, and medically managed after catheterization. 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 He was requiring transfusion of PRBCs every 3-4 weeks.and there was question of if he was responding to Vidaza. He was seen by Dr. López (her input is much appreciated) who recommended [...] TET2 p.?, [id number], c.4182+1G>A VAF: 44.5% TET2 p.R2046A, [id number], c.5618T>C VAF: 40% ZRSR2 p.R30Vfs*8, NM_005089.3, [...] them. Will discuss with my colleague Dr. López with respect to starting Dacogen. 04/25/2022 : [...] Visit, April 22, 2022: Patient saw Dr. López (recommendations are above). Feels about the same. Hgb today is 7.5 Bone marrow scheduled for 04/25/22 Updated Visit, April 08, 2022: Hgb 8.1 today after transfusion 5 days ago. Due to See Dr. López next 04/18/2022 Will cancel Vidaza for now. [...] his Lissette and was seen by Dr. Mandel approximately 1 week ago from ENT. Patient [...] surgery w/ Dr. Hyde Last fall in [place]. Has tranexamic acid at home. Requesting ENT referral at [facility]. He is dehydrated and not keeping up with fluids. 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 Since stopping the aspirin he has not [...] Sandoval PA-C CC: Dr. Flash Gomez (Cardiology [facility]) MD Kim Merlos MD documented in this encounter [facility] 06-10-2022 Nurse Note Clinical questionnaires incomplete due to Nurse was Interrupted by provider during rooming process QNR not working. Showing an error. Ksenia Mohan documented in this encounter [facility] 06-07-2022 Miscellaneous Notes Per pt's chart, he is scheduled to receive 2 units RBC's at [facility] today. Angle Kamara RN Wade from [facility] lab called with critical results on patient. HBG 7.7 HCT 23.0(critical result) Jozef Mohan RN documented in this encounter [facility] 06-03-2022 Miscellaneous Notes 2 units packed RBC's at [facility] on Fri06-05-22 9am. Lab on Friday before noon. Order and cbc were faxed to [facility] documented in this encounter [facility] 06-03-2022 Instructions Asher Hummel MD - 06/03/2022 1:55 PM EST Continue low dose decitabine weekly x 2 days (Fri, Fri) Retacrit today and weekly for Hgb < 12 Transfuse 2 unit PRBCs for Hgb < 8.5 (this week on Friday @ [facility] please) Labs again once / week here Recheck H/H this Friday at [facility] and transfuse again if Hgb < 8.5 RTC in 1 weeks - with labs - see Wilfred documented in this encounter [facility] 06-03-2022 History of Present illness Narrative Images from the original note were not included. NAME: Sandip Broussard [facility] NO.: [id number] DATE OF SERVICE: June 03, 2022 (Estephanie) Some elements in this clinic note that are critical to medical decision making have been carefully reviewed and included from a prior clinic note dated: May 20, 2022 (Estephanie) Referring Provider: Dr. Flash Pearl Additional Clinicians involved in Sandip Broussard's care: Dr. José Luis Velasquez, Dr. Oumou Mandel CC: Follow up ASSESSMENT: 81 year old [...] Epo usage. 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 He was transfused, and medically managed after catheterization. 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 He has been requiring transfusion of PRBCs every 3-4 weeks. At this time there is question if he is responding to vidaza. He was seen by Dr. López (her input is much appreciated) who recommended increasing his reticrit to weekly, which he will receive today, attempt to transfuse to keep his hgb >8 due to his CHF history, and proceed with repeat bone marrow biopsy (scheduled for 04/25/22), and get hematologic NGS on him. PLAN: Continue low dose decitabine weekly x 2 days (Fri, Tu) Retacrit today and weekly for Hgb < 12 Transfuse 2 unit PRBCs for Hgb < 8.5 (this week on Friday @ [facility] please) Labs again once / week here Recheck H/H this Friday at [facility] and transfuse again if Hgb < 8.5 [...] them. Will discuss with my colleague Dr. López with respect to starting Dacogen. 04/25/2022 : [...] Visit, April 22, 2022: Patient saw Dr. López (recommendations are above). Feels about the same. Hgb today is 7.5 Bone marrow scheduled for 04/25/22 Updated Visit, April 08, 2022: Hgb 8.1 today after transfusion 5 days ago. Due to See Dr. López next 04/18/2022 Will cancel Vidaza for now. [...] his Lissette and was seen by Dr. Mandel approximately 1 week ago from ENT. Patient [...] surgery w/ Dr. Hyde Last fall in [place]. Has tranexamic acid at home. Requesting ENT referral at [facility]. He is dehydrated and not keeping up with fluids. 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 Since stopping the aspirin he has not [...] which included preparing to see the patient, ulcy-lb-syfq patient care, completing clinical documentation, obtaining and/or reviewing separately obtained history, performing a medically appropriate examination, counseling and educating the patient/family/caregiver, ordering medications, tests, or procedures, communicating with other HCPs (not separately reported), and independently interpreting results (not separately reported). Asher Hummel MD, CPE Hematology and Oncology Services Provided at: [place], [place] CC: Dr. Flash Gomez (Cardiology [facility]) MD Kim Merlos MD documented in this encounter [facility] 05-23-2022 Miscellaneous Notes CYCLE 1/DAY 1 POST [...] her. Asked if pt would speak w/ [facility]. Spouse states, You can call the house [...] Angle Kamara RN documented in this encounter [facility] 05-20-2022 Miscellaneous Notes The following approved medication [...] hours as needed. Authorizing Provider: WILFRED MARTINEZ APRN.FRINGE WEAVER Scripts pended for antiemetics. Please review and approve. Thanks! Angle Kamara RN documented in this encounter [facility] 05-20-2022 Miscellaneous Notes 1 unit packed RBC's at [facility] on Friday05-24-22 at 9am. Lab on anytime before noon. Patient and are aware of this appt. documented in this encounter [facility] 05-20-2022 Instructions Asher Hummel MD - 05/20/2022 2:40 PM EDT Start low dose decitabine weekly x 2 days (M, T) Retacrit today and weekly for Hgb < 12 Labs once / week RTC in 2 weeks Transfuse 1 unit PRBCs for Hgb < 8.5 (this week on @ [facility] please) documented in this encounter [facility] 05-20-2022 History of Present illness Narrative Images from the original note were not included. NAME: Sandip Broussard [facility] NO.: [id number] DATE OF SERVICE: May 20, 2022 (Estephanie) Some elements in this clinic note that are critical to medical decision making have been carefully reviewed and included from a prior clinic note dated: May 06, 2022 (Estephanie) Referring Provider: Dr. Flash Pearl Additional Clinicians involved in Sandip Broussard's care: Dr. José Luis Velasquez, Dr. Oumou Mandel CC: Follow up ASSESSMENT: 81 year old [...] Epo usage. 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 He was transfused, and medically managed after catheterization. 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 He has been requiring transfusion of PRBCs every 3-4 weeks. At this time there is question if he is responding to vidaza. He was seen by Dr. López (her input is much appreciated) who recommended [...] Hgb < 8.5 (this week on @ [facility] please) TREATMENT TO DATE: 4. 05/20/2022 - [...] them. Will discuss with my colleague Dr. López with respect to starting Dacogen. 04/25/2022 : [...] Visit, April 22, 2022: Patient saw Dr. López (recommendations are above). Feels about the same. Hgb today is 7.5 Bone marrow scheduled for 04/25/22 Updated Visit, April 08, 2022: Hgb 8.1 today after transfusion 5 days ago. Due to See Dr. López next 04/18/2022 Will cancel Vidaza for now. [...] his Lissette and was seen by Dr. Mandel approximately 1 week ago from ENT. Patient [...] surgery w/ Dr. Hyde Last fall in [place]. Has tranexamic acid at home. Requesting ENT referral at [facility]. He is dehydrated and not keeping up with fluids. 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 Since stopping the aspirin he has not [...] which included preparing to see the patient, [id number] patient care, completing clinical documentation, obtaining and/or reviewing separately obtained history, performing a medically appropriate examination, counseling and educating the patient/family/caregiver, ordering medications, tests, or procedures, communicating with other HCPs (not separately reported), and independently interpreting results (not separately reported). Asher Hummel MD, CPE Hematology and Oncology Services Provided at: [place], [place] CC: Dr. Flash Gomez (Cardiology [facility]) MD iKm Merlos MD documented in this encounter [facility] 05-20-2022 Nurse Note Patient is interested in getting Flu shot. Opal Campbell MA documented in this encounter [facility] 05-14-2022 Miscellaneous Notes Appointment scheduled & confirmed with pt's spouse. Per secure chat from Dr Hummel: hello - I'd like Don to start Dacogen on Friday will need education as well as consent. Thank you. Clerical: Please schedule. Pharmacy: [facility]... Angle Kamara, RN documented in this encounter [facility] 05-06-2022 Miscellaneous Notes Patient will get TSC tomorrow at [place] between 6:30 and 5 pm (outpatient lab hours) Tranfusion is scheduled for Friday, 05/08 @ 12:00 pm. Ada Perez documented in this encounter [facility] 05-06-2022 Instructions Asher Hummel MD - 05/06/2022 4:30 PM EDT Retacrit today and weekly for Hgb < 12 Labs once / week RTC in 2 weeks Transfuse 1 unit PRBCs for Hgb < 8.5 documented in this encounter [facility] 05-06-2022 History of Present illness Narrative Images from the original note were not included. NAME: Sandip Broussard CLINIC NO.: [id number] DATE OF SERVICE: May 06, 2022 ([facility]) Some elements in this clinic note that are critical to medical decision making have been carefully reviewed and included from a prior clinic note dated:April 29, 2022 (Estephanie) Referring Provider: Dr. Flash Pearl Additional Clinicians involved in Sandip Broussard's care: Dr. José Luis Velasquez, Dr. Oumou Mandel CC: Follow up ASSESSMENT: 81 year old [...] Epo usage. 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 He was transfused, and medically managed after catheterization. 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 He has been requiring transfusion of PRBCs every 3-4 weeks. At this time there is question if he is responding to vidaza. He was seen by Dr. López (her input is much appreciated) who recommended [...] them. Will discuss with my colleague Dr. López with respect to starting Dacogen. 04/25/2022 : [...] Visit, April 22, 2022: Patient saw Dr. López (recommendations are above). Feels about the same. Hgb today is 7.5 Bone marrow scheduled for 04/25/22 Updated Visit, April 08, 2022: Hgb 8.1 today after transfusion 5 days ago. Due to See Dr. López next 04/18/2022 Will cancel Vidaza for now. [...] his Lissette and was seen by Dr. Mandel approximately 1 week ago from ENT. Patient [...] surgery w/ Dr. Hyde Last fall in [place]. Has tranexamic acid at home. Requesting ENT referral at [facility]. He is dehydrated and not keeping up with fluids. 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 Since stopping the aspirin he has not [...] which included preparing to see the patient, [id number] patient care, completing clinical documentation, obtaining and/or reviewing separately obtained history, performing a medically appropriate examination, counseling and educating the patient/family/caregiver, ordering medications, tests, or procedures, communicating with other HCPs (not separately reported), and independently interpreting results (not separately reported). Asher Humeml MD, CPE Hematology and Oncology Services Provided at: [place], [place] CC: Dr. Flash Gomez (Cardiology [facility]) MD Kim Merlos MD documented in this encounter [facility] 04-29-2022 Miscellaneous Notes Lucero Santiago calling from [facility]. States that they received pt's specimen. Needs to clarify if this is bone marrow or peripheral blood. Per Nicki Aguila in lab, bone marrow aspirate was submitted to [facility]. Lucero notified of the above and verbalizes understanding. No additional questions noted. Angle Kamara RN documented in this encounter [facility] 04-29-2022 History of Present illness Narrative Pt is unable to receive retacrit today d/t it not being authorized by insurance since it has only been 7 days. Per pharmacy. Pharmacy requesting to get retacrit authorized weekly. Pt made aware. Will keep next appointment. documented in this encounter [facility] 04-29-2022 Instructions Asher Hummel MD - 04/29/2022 1:07 PM EDT Retacrit today and weekly for Hgb < 12 RTC in 1 week, labs and review BMBx results. documented in this encounter [facility] 04-29-2022 History of Present illness Narrative Images from the original note were not included. NAME: Sandip Broussard CLINIC NO.: [id number] DATE OF SERVICE: April 29, 2022 (Estephanie) Some elements in this clinic note that are critical to medical decision making have been carefully reviewed and included from a prior clinic note dated: April 22 2022 (Lori) Referring Provider: Dr. Flash Pearl Additional Clinicians involved in Sandip Broussard's care: Dr. José Luis Velasquez, Dr. Oumou Mandel CC: Follow up ASSESSMENT: 81 year old [...] Epo usage. 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 He was transfused, and medically managed after catheterization. 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 He has been requiring transfusion of PRBCs every 3-4 weeks. At this time there is question if he is responding to vidaza. He was seen by Dr. López (her input is much appreciated) who recommended [...] Visit, April 22, 2022: Patient saw Dr. López (recommendations are above). Feels about the same. Hgb today is 7.5 Bone marrow scheduled for 04/25/22 Updated Visit, April 08, 2022: Hgb 8.1 today after transfusion 5 days ago. Due to See Dr. López next 04/18/2022 Will cancel Vidaza for now. [...] his Lissette and was seen by Dr. Mandel approximately 1 week ago from ENT. Patient [...] surgery w/ Dr. Hyde Last fall in [place]. Has tranexamic acid at home. Requesting ENT referral at [facility]. He is dehydrated and not keeping up with fluids. 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 Since stopping the aspirin he has not [...] which included preparing to see the patient, ulgw-iy-[id number] patient care, obtaining and/or reviewing separately obtained history, ordering medications, tests, or procedures, and independently interpreting results (not separately reported). Asher Hummel MD, CPE Hematology and Oncology Services Provided at: [place], [place] CC: Dr. Flash Gomez (Cardiology [facility]) MD Kim Merlos MD documented in this encounter [facility] 04-25-2022 History of Present illness Narrative BONE [...] Hummel MD Personnel present: Asher Hummel MD, lab tester. Bone marrow aspiration: Unilateral was obtained. Bone [...] In Department: Hematology/Oncology documented in this encounter [facility] 04-23-2022 Miscellaneous Notes signed Brynn/Wilfred: Order for Foundation One Heme pended ([facility] test). Angle Kamara, RN Patient coming in on for bone marrow biopsy. Dr. López recommended hemotologic NGS testing. Can you please pend that for Dr. Hummel to sign and make sure he gets it drawn when here for bmbx? Thanks. Radha Sandoval PA-C documented in this encounter [facility] 04-18-2022 Nurse Note Additional intake questions: Has the patient had fever, nausea, vomiting, diarrhea, constipation, fatigue for > 1 week? Yes, fatigue and Provider Notified Does the patient have a decreased appetite? No Does patient want to see a [employer] Middleware Architect? No (yes to any of above refer patient to schedulers for dietitian appointment) ) Does patient have any new or increased numbness or tingling of extremities? No Is patient interested in fertility information? No Does patient need any prescription refills? No Does patient have an advanced directive in place? Yes, no copy found in [facility] Patient referred to [facility] Electronically Signed By: Matt Christianson LPN documented in this encounter [facility] 04-18-2022 History of Present illness Narrative [place] [address] [place] CLINIC NOTE NAME: SANDIP BROUSSARD CLINIC #: [id number] DATE: 04/18/2022 AGE: 81 PHYSICIAN: Kim López M.D. The patient is an 81-year-old gentleman [...] 1 son who works as a senior [employer] Sales specialist at [facility] [employer]. He had a big family of 10. 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 Kim López M.D. KAILEY:[id number] documented in this encounter [facility] 04-15-2022 Miscellaneous Notes Discussed w/ Wilfred. No [...] [facility] with [facility] on . It would be too long of a day too far from home. They want to receive a blood transfusion at [facility]. They are concerned that patient may drop further prior to and want a transfusion if needed before appointment. Please advise and set up transfusion at [place] and call pt if needed. Thank you. documented in this encounter [facility] 04-15-2022 Nurse Note Labs reviewed with patient and questions answers/discussion about possible transfusion. See telephone encounter. documented in this encounter [facility] 04-08-2022 Instructions Asher Hummel MD - 04/08/2022 3:14 PM EDT Labs on Friday Transfuse if Hgb is 7.0 or patient is symptomatic Aranesp and B12 today Keep appointment with Dr. López 04/18/2022 RTC in 2 weeks with labs same day. documented in this encounter [facility] 04-08-2022 History of Present illness Narrative Images from the original note were not included. NAME: Sandip Broussard CLINIC NO.: [id number] DATE OF SERVICE: April 08, 2022 Some elements in this clinic note that are critical to medical decision making have been carefully reviewed and included from a prior clinic note dated: March 11, 2022 Referring Provider: Dr. Flash Pearl Additional Clinicians involved in Sandip Broussard's care: Dr. José Luis Velasquez, Dr. Oumou Mandel CC: Follow up ASSESSMENT: 81 year old [...] Epo usage. 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 [...] and B12 today Keep appointment with Dr. López 04/18/2022 RTC in 2 weeks with labs same day. TREATMENT TO DATE: 3. 07/09/2021 - 04/08/2022: Vidaza D1-5 q 28. 2. Retacrit 80,000 units every other week 1. Intermittent IV Iron HPI: Updated Visit, April 08, 2022: Hgb 8.1 today after transfusion 5 days ago. Due to See Dr. López next 04/18/2022 Will cancel Vidaza for now. [...] his Lissette and was seen by Dr. Mandel approximately 1 week ago from ENT. Patient [...] surgery w/ Dr. Hyde Last fall in [place]. Has tranexamic acid at home. Requesting ENT referral at [facility]. He is dehydrated and not keeping up with fluids. 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 Since stopping the aspirin he has not [...] which included preparing to see the patient, [id number]-[id number] patient care, completing clinical documentation, performing a medically appropriate examination, counseling and educating the patient/family/caregiver, ordering medications, tests, or procedures, and communicating with other HCPs (not separately reported). Asher Hummel MD, CPE Hematology and Oncology Services Provided at: [place], [place] CC: Dr. Flash Gomez (Cardiology [facility]) MD Kim Merlos MD documented in this encounter [facility] 04-03-2022 Miscellaneous Notes Discussed with Dr Arias. No additional orders. Fide Puente, RN Critical lab called Hgb 6.9/Hct 21.8. Pt has 2 units PRBC's ordered and I called and spoke to Rosetta at the [facility] infusion center and he is schedule for infusion of units at 0800 04/04/22. Note Hgb 7.0 HM/BRYNN: any further instructions? Fide Puente RN documented in this encounter [facility] 04-02-2022 Miscellaneous Notes 2 units packed RBC S at [facility] on 04-04-. 9am. Patient is going for lab draw on 04-03. Around noon documented in this encounter [facility] 04-02-2022 Miscellaneous Notes Transfusion orders signed per Wilfred and forwarded to MARII Puga, for scheduling. Angle Kamara RN Today's hgb 7. Pt's spouse notified and verbalizes understanding. Notes the pt c/o increased fatigue and weakness. Do you want to transfuse? Angle Kamara RN Pt requesting lab results be called to his spouse, Lissette [phone] when available. Thanks! documented in this encounter [facility] 03-21-2022 Miscellaneous Notes Don is scheduled 04/04 for appointment with [facility] answer line messaged me back and said they tried to call patient this afternoon to schedule, they left a message Hi, I am currently working on this. Clerical: Please see Dr López's reply below. Thanks! Angle Kamara RN Images from the original note were not included. MD Asher Laughlin MD; Angle Kamara RN I would recommend having angle or someone from your office call the cancer answer line-- [phone]-- since I am not sure how these other consults are going through If you want me to specifically see-- let them know. Otherwise-- they will get them in to the first available. I can always give add on times Thanks Kim Previous Messages ----- Message ----- From: Asher Hummel MD Sent: 03/15/2022 9:27 PM EDT To: Kim López MD, Angle Kamara, MONET Yes - def - I placed a consult today -thank you! ----- Message ----- From: Kim López MD Sent: 03/11/2022 2:56 PM EDT To: Asher Hummel MD, Angle Kamara RN We are happy to get him in to be seen Would that be okay? ----- Message ----- From: Asher Hummel MD Sent: 03/11/2022 2:53 PM EDT To: Kim López MD, MONET Conley - I could use your input on this gentleman - he is transfusion dependent about every 2 weeks. Vidaza + Aranesp isn't working so well. Any thoughts you could provide would be appreciated. documented in this encounter [facility] 03-19-2022 Miscellaneous Notes Pt's calls for yesterday's hgb results. Results reviewed w/ pt's spouse. Spouse verbalizes understanding. Denies any further questions at this time. Angle Kamara RN documented in this encounter [facility] 03-18-2022 Miscellaneous Notes Message left for pt to call our office back regarding lab results. Paris Jerry RN Patient is here for lab draw. Patient and spouse have asked us to send message to have someone call them today with the results. Thank you! Emily Horan Pss documented in this encounter [facility] 03-18-2022 Miscellaneous Notes Emailed cancer answer line to schedule Clerical: Please refer pt to Dr López. Thanks! Angle Kamara RN Yes - that would be great - I just spoke with his and she is aware! Brynn: Do you want pt set up to see Dr López? Angle Kamara, MONET Images from the original note were not included. MD Asher Laughlin MD; Angle Kamara, RN We are happy to get him in to be seen Would that be okay? Previous Messages ----- Message ----- From: Asher Hummel MD Sent: 03/11/2022 2:53 PM EDT To: Kim López MD, Angle Kamara, RN Octavio Alvarez - I could use your input on this gentleman - he is transfusion dependent about every 2 weeks. Vidaza + Aranesp isn't working so well. Any thoughts you could provide would be appreciated. documented in this encounter [facility] 03-11-2022 Miscellaneous Notes 2 units packed RBC's at [facility] on Friday03-12-22 8am. Lab today. Orders were faxed documented in this encounter [facility] 03-11-2022 Instructions Asher Hummel MD - 03/11/2022 2:54 PM EDT 1. Proceed with C9 Vidaza D1-5 2. Transfuse in [facility] this week 1 unit 3. Continue Retacrit q 2 weeks - labs every weeks 4. RTC in 4 weeks for C10 Vidaza 5. Discuss with Dr. López. documented in this encounter [facility] 03-11-2022 History of Present illness Narrative Images from the original note were not included. NAME: Sandip Broussard [facility] NO.: [id number] DATE OF SERVICE: March 11, 2022 Some elements in this clinic note that are critical to medical decision making have been carefully reviewed and included from a prior clinic note dated: February 11 2022 (Lori) & January 14, 2022 Referring Provider: Dr. Flash Pearl Additional Clinicians involved in Sandip Broussard's care: Dr. José Luis Velasquez, Dr. Oumou Mandel CC: Follow up ASSESSMENT: 81 year old [...] Epo usage. 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 [...] for C10 Vidaza 5. Discuss with Dr. López. TREATMENT TO DATE: 07/09/2021 - Current: Vidaza [...] his Lissette and was seen by Dr. Mandel approximately 1 week ago from ENT. Patient [...] surgery w/ Dr. Hyde Last fall in [place]. Has tranexamic acid at home. Requesting ENT referral at [facility]. He is dehydrated and not keeping up with fluids. 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 Since stopping the aspirin he has not [...] which included preparing to see the patient, busz-fl-leaf patient care, completing clinical documentation, performing a medically appropriate examination, counseling and educating the patient/family/caregiver, ordering medications, tests, or procedures, and communicating with other HCPs (not separately reported). Asher Hummel MD, CPE Hematology and Oncology Services Provided at: [place], [place] CC: Dr. Flash Gomez (Cardiology [facility]) Dr. Oumou Cho MD documented in this encounter [facility] 02-28-2022 Miscellaneous Notes Patient has been scheduled for transfusion at [place] on 03/01 @ 8:00 am. Faxed orders to [place] Scheduling. He will get TSC today. Ada Perez documented in this encounter [facility] 02-25-2022 History of Present illness Narrative Dr. Hummel aware of pt hgb 7.1 and his reports of feeling fatigue, lighteaded. Retacrit given; Pt to come back in to office on for CBC. Patient agrees with plan and scheduled appointment. documented in this encounter [facility] 02-11-2022 History of Present illness Narrative Images from the original note were not included. NAME: Sandip Broussard [facility] NO.: [id number] DATE OF SERVICE: February 11 2022 (Elements copied from Dr. Segundo's note dated January 14, 2022, have been reviewed and updated where appropriate, and all reflect current assessment and medical decision making during today's encounter, February 11, 2022) Referring Provider: Dr. Flash Pearl Additional Clinicians involved in Sandip Broussard's care: Dr. José Luis Velasquez, Dr. Oumou Mandel CC: Follow up ASSESSMENT:81 year old year [...] Epo usage. 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 [...] his Lissette and was seen by Dr. Mandel approximately 1 week ago from ENT. Patient [...] surgery w/ Dr. Hyde Last fall in [place]. Has tranexamic acid at home. Requesting ENT referral at [facility]. He is dehydrated and not keeping up with fluids. 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 Since stopping the aspirin he has not [...] Sandoval PA-C CC: Dr. Flash Gomez (Cardiology [facility]) Dr. Oumou Cho MD documented in this encounter [facility] 02-04-2022 Miscellaneous Notes [facility] lab calls w/ critical lab results: Hgb 6.8 Hct 21.1 Pt identifiers and results read back for verification. Pt scheduled for 2 units RBCs tomorrow, 02/05. Angle Kamara RN documented in this encounter [facility] 02-04-2022 Miscellaneous Notes 2 units packed RBC's at [facility] on 02-05 8am. He is stopping for lab draw today. Orders and cbc were faxed to [facility]. documented in this encounter [facility] 02-04-2022 History of Present illness Narrative VS taken. States he is here because he feels very fatigued and slightly more short of breath. Wants to f/u with his hgb from this am. Hgb 6.8. Dr. Hummel made aware of results and assessment. Pt will be receiving order for a transfusion and Informed of plan. Pt agrees. documented in this encounter [facility] 01-30-2022 History of Present illness Narrative Pt denies need for transfusion today, states he will call if his symptoms get worse. Miriam Elizabeth RN documented in this encounter [facility] 01-21-2022 History of Present illness Narrative Cr 1.[address] Watt. Pt given 500 mls NS. documented in this encounter [facility] 01-18-2022 History of Present illness Narrative Repeat Cr 2.[address] Watt by lead rn gilson Elizabeth. Pt will receive 1 L NS today and return sunday 01/21 for repeat labs. documented in this encounter [facility] 01-14-2022 Miscellaneous Notes Cr 2.13 [facility], pt to increase oral fluids at home, we will recheck a CMP on 01/17. Please sign pending order is agreeable. Thanks! Miriam Elizabeth RN documented in this encounter [facility] 01-14-2022 Miscellaneous Notes Pt scheduled for 1 unit of PRBCs [facility] Friday (01/16) @ 900am. Type and cross tomorrow (01/15). Confirmed with pt, order faxed. documented in this encounter [facility] 01-14-2022 History of Present illness Narrative documented in this encounter [facility] 01-14-2022 History of Present illness Narrative Images from the original note were not included. NAME: Sandip Broussard CLINIC NO.: [id number] DATE OF SERVICE: January 14, 2022 Some elements in this clinic note that are critical to medical decision making have been carefully reviewed and included from a prior clinic note dated: December 17, 2021 Referring Provider: Dr. Flash Pearl Additional Clinicians involved in Sandip Broussard's care: Dr. José Luis Velasquez, Dr. Oumou Mandel CC: Follow up ASSESSMENT:81 year old year [...] Epo usage. 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 [...] his Lissette and was seen by Dr. Mandel approximately 1 week ago from ENT. Patient [...] surgery w/ Dr. Hyde Last fall in [place]. Has tranexamic acid at home. Requesting ENT referral at [facility]. He is dehydrated and not keeping up with fluids. 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 Since stopping the aspirin he has not [...] which included preparing to see the patient, [id number] patient care, completing clinical documentation, performing a medically appropriate examination and ordering medications, tests, or procedures. Asher Hummel MD, CPE Services Provided at: [place], [place] & [place], [place] CC: Dr. Flash Gomez (Cardiology [facility]) Dr. Oumou Cho MD documented in this encounter [facility] 01-07-2022 Nurse Note Patient Identification confirmed: yes. Injection given and documented on SEP per provider order. Kathy Morelos Ma documented in this encounter [facility] 01-02-2022 Miscellaneous Notes Added patient to the [...] Miriam Elizabeth RN documented in this encounter [facility] 12-21-2021 History of Present illness Narrative 10 documented in this encounter [facility] 12-17-2021 History of Present illness Narrative Patient states he was recently in the [facility] for a mild heart attack, was released. Then was admitted a few days later to the [facility] for fluid on his lungs. States they removed it and he is feeling much better. Patient states he has had to wear his oxygen all the time since his admission to the [facility]. Did not wear his in to the facility today bc he didn;t feel like he needed it . Then his Pulse ox was low and we had to put ours on him. Encouraged patient to wear his oxygen at all times. Lexi Velasquez RN Patient spouse would like to be called prior to him finishing treatment [phone] Erica Bain RN documented in this encounter [facility] 12-17-2021 History of Present illness Narrative Images from the original note were not included. NAME: Sandpi Broussard CLINIC NO.: [id number] DATE OF SERVICE: December 17, 2021 Some elements in this clinic note that are critical to medical decision making have been carefully reviewed and included from a prior clinic note dated: November 29, 2021 Referring Provider: Dr. Flash Pearl Additional Clinicians involved in Sandip Broussard's care: Dr. José Luis Velasquez, Dr. Oumou Mandel CC: Follow up ASSESSMENT:81 year old year [...] Epo usage. 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 [...] his Lissette and was seen by Dr. Mandel approximately 1 week ago from ENT. Patient [...] surgery w/ Dr. Hyde Last fall in [place]. Has tranexamic acid at home. Requesting ENT referral at [facility]. He is dehydrated and not keeping up with fluids. 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 Since stopping the aspirin he has not [...] 12/17/2021: Sodium 145, potassium 3.4, BUN 30, Data Systems Manager. 1.54, LDH 260, CBC: 1.98 > 10.2/32.5 [...] which included preparing to see the patient, [id number] patient care, completing clinical documentation, obtaining and/or reviewing separately obtained history, performing a medically appropriate examination, counseling and educating the patient/family/caregiver and ordering medications, tests, or procedures. Asher Hummel MD, CPE Services Provided at: [place], [place] & [place], [place] CC: Dr. Flash Gomez (Cardiology [facility]) Dr. Oumou Cho MD documented in this encounter [facility] 11-29-2021 History of Present illness Narrative Images from the original note were not included. NAME: Sandip Broussard CLINIC NO.: [id number] DATE OF SERVICE: November 29, 2021 Some elements in this clinic note that are critical to medical decision making have been carefully reviewed and included from a prior clinic note dated: October 25, 2021 Referring Provider: Dr. Flash Pearl Additional Clinicians involved in Sandip Broussard's care: Dr. José Luis Velasquez, Dr. Oumou Mandel CC: Follow up ASSESSMENT:80 year old year [...] Epo usage. 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 He was transfused, and medically managed after catheterization. 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 PLAN: 1. Hold Vid[facility] for 3 weeks (RTC in 3+ weeks on a Friday for possible start) 2. Consider Hospice - contact [facility] (current Home Health) 3. RTC in [...] his Lissette and was seen by Dr. Mandel approximately 1 week ago from ENT. Patient [...] surgery w/ Dr. Hyde Last fall in [place]. Has tranexamic acid at home. Requesting ENT referral at [facility]. He is dehydrated and not keeping up with fluids. 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 Since stopping the aspirin he has not [...] which included preparing to see the patient, [id number]-[id number]-hllo patient care, completing clinical documentation, obtaining and/or reviewing separately obtained history, performing a medically appropriate examination, ordering medications, tests, or procedures and care coordination (not separately reported). Asher Hummel MD, CPE Services Provided at: [place], [place] & [place], [place] CC: Dr. Flash Gomez (Cardiology [facility]) Dr. Oumou Cho MD documented in this encounter [facility] 11-29-2021 Miscellaneous Notes Records scanned. Update: Pt discharged home w/ home health on 11/25. [place]: Please scan pt's hospital records from [facility]. Thanks! Angle Kamara, RN Thank you for the update. FYI: Pt's calls to inform us that the pt is currently admitted to ICU @ [facility] after suffering a heart attack on Friday. Pt found to have pneumonia as well. Notes the pt's condition is stable as of now. Spouse will call back to reschedule pt's appointments once a discharge plan is in place. Angle Kamara RN documented in this encounter [facility] 11-28-2021 Miscellaneous Notes DISCHARGE CALL BACK Today's date: November 28, 2021 Notified of Pt discharge by: Pt's spouse Patient discharged on 11/25/21 from [facility] to Home with Homecare Nurse Primary Cancer Diagnosis: MDS Admitting Diagnosis: Myocardial Infarction Discharge Summary/SBAR reviewed: No - requested from HIM. 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 Discharged home w/ new meds. Spouse will be bringing new meds w/ them to tomorrow's f/u appointment. Angle Kamara RN documented in this encounter [facility] 11-27-2021 Note MR#: [id number] [facility] Pt. 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 ASSESSMENT AND PLAN: 1. Pxx-LQ-enhrsnhxi myocardial infarction, likely type 2, was temporarily [...] 2 and was stable at discharge. 6. Mxpj-vx-teuuoxon mitral regurgitation noted on TE. 7. Coronary [...] syndrome, currently on azacitidine injections monthly per [facility]. The patient's hemoglobin was stable while at [...] the encoun (more content not included)... [facility] 11-16-2021 Miscellaneous Notes Per donald Asher/Dr. Brynn kumar for patient to wait for transfusion until Friday. Patient has been scheduled for transfusion @ [place] Friday, 11/19 @ 9:00 am. He will need to get TSC tomorrow before noon and go through the ER entrance. Spoke w/ November 16, 2021 12:01 PM and confirmed. Ada Perez Pt's notified and states the pt has c/o increased fatigue. Would like to proceed w/ transfusion @ [facility]. Orders given to MARII Puga. Angle Kamara RN Call placed to pt. No answer. Message left requesting call back. Angle Kamara RN ----- Message from Asher Hummel MD sent at 11/15/2021 4:32 PM EDT ----- Probably could use a transfusion if he feels bad. documented in this encounter [facility] 11-01-2021 History of Present illness Narrative Miriam Elizabeth RN documented in this encounter [facility] 10-29-2021 Miscellaneous Notes FYI: Pt's spouse reports that the pt is scheduled to receive a blood transfusion @ [facility] tomorrow @ 8 AM. Angle Kamara RN documented in this encounter [facility] 10-29-2021 History of Present illness Narrative Lab work at the [facility] today, results scanned in. No ANC available, ok to treat per Dr. Watt. Lexi Velasquez RN documented in this encounter [facility] 10-25-2021 History of Present illness Narrative Images from the original note were not included. NAME: Sandip Broussard CLINIC NO.: [id number] DATE OF SERVICE: October 25, 2021 Some elements in this clinic note that are critical to medical decision making have been carefully reviewed and included from a prior clinic note dated: October 01, 2021. Referring Provider: Dr. Flash Pearl Additional Clinicians involved in Sandip Broussard's care: Dr. José Luis Velasquez, Dr. Oumou Mandel CC: Follow up ASSESSMENT: 1. Myelodysplastic syndrome [...] his Lissette and was seen by Dr. Mandel approximately 1 week ago from ENT. Patient [...] surgery w/ Dr. Hyde Last fall in [place]. Has tranexamic acid at home. Requesting ENT referral at [facility]. He is dehydrated and not keeping up with fluids. 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 Since stopping the aspirin he has not [...] Drug use: Not on file Wilfred Martinez APRN.[employer] Services Provided at: [place], [place] CC: Dr. Flash Gomez (Cardiology [facility]) Dr. Oumou Mandel documented in this encounter [facility] 10-15-2021 History of Present illness Narrative History: [...] EAC free of lesions. TM retracted. 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 Assessment/Plan: 1. H/o ETD. [...] 3 - Low documented in this encounter [facility] Evaluation + Plan note Future Appointments Appointment Date:03/10/2023 02:00:00 PM Scheduled Provider: Location:[facility] Appointment Type: Medicare Wellness Subsequent Appointment Date:03/10/2023 02:40:00 PM Scheduled Provider:Jacquelin Barton MD Location:[facility] Appointment Type: Open Diagnostic Tests PendingUrinalysis 01/10/23 [facility] Evaluation + Plan note Future Appointments Appointment Date:03/10/2023 02:00:00 PM Scheduled Provider: Location:[facility] Appointment Type: Medicare Wellness Subsequent Appointment Date:03/10/2023 02:40:00 PM Scheduled Provider:Jacquelin Barton MD Location:[facility] Appointment Type: Open [facility] Evaluation + Plan note Future Appointments Appointment Date:03/17/2023 02:40:00 PM Scheduled Provider:Jacquelin Barton MD [facility] Type: Open Appointment Date:03/18/2023 01:00:00 PM Scheduled Provider:ANTONIA MERCER MD Location:.ONCOLOGY Appointment Type:ONC Supportive Care New (FT) Appointment Date:04/16/2023 02:40:00 PM Scheduled Provider:Jacquelin Barton MD Location:[facility] Appointment Type: Open Appointment Date:04/22/2023 02:00:00 PM Scheduled Provider: Location:.ONCOLOGY Appointment Type:ONC Office Visit 30 (FT) Appointment Date:04/05/2024 02:00:00 PM Scheduled Provider: Location:[facility] Appointment Type:FM Medicare Wellness Subsequent Diagnostic Tests PendingCBC w/ Auto Diff 03/11/23Comprehensive Metabolic Panel 04/01/23Lactate Dehydrogenase 04/01/23 Future Scheduled TestsStool Occult Blood 03/12/23 [facility] Evaluation + Plan note Future Appointments Appointment Date:01/15/2024 03:30:00 PM Scheduled Provider:Jacquelin Barton MD Location:[facility] Appointment Type: Open Appointment Date:04/02/2024 10:45:00 AM Scheduled Provider:Elena DO MD Location:[facility] Appointment Type:URO Office Visit Appointment Date:04/05/2024 02:00:00 PM Scheduled Provider: Location:[facility] Appointment Type:FM Medicare Wellness Subsequent [facility] Evaluation note Diagnosis Chronic Eustachian tube dysfunction, bilateral- Primary Epistaxis [facility] Diagnosis CRF (chronic renal failure), stage 4 (severe) (HCC)- Primary Anemia of chronic renal failure, stage 4 (severe) (HCC) Iron deficiency anemia due to chronic blood loss Iron deficiency anemia secondary to blood loss (chronic) CKD (chronic kidney disease) stage 4, GFR 15-29 ml/min (HCC) Chronic kidney disease, Stage IV (severe) Myelodysplastic syndrome (HCC) Myelodysplastic syndrome, unspecified [facility] Diagnosis Myelodysplastic syndrome (HCC)- Primary Myelodysplastic [...] prostate Hyperkalemia Hyperpotassemia [facility] Diagnosis Myelodysplastic syndrome (HCC)- Primary Myelodysplastic syndrome, unspecified [facility] [place] Diagnosis Myelodysplastic syndrome (HCC)- Primary Myelodysplastic syndrome, unspecified [facility] [place] [facility]* Diagnosis Myelodysplastic syndrome (HCC)- Primary Myelodysplastic syndrome, unspecified [facility] [place]* Diagnosis Myelodysplastic syndrome (HCC)- Primary Myelodysplastic syndrome, unspecified CRF (chronic renal failure), stage 4 (severe) (HCC) documented in this encounter [facility] note* Diagnosis Anemia of chronic renal failure, stage 4 (severe) (HCC)- Primary CRF (chronic renal failure), stage 4 (severe) (HCC) Iron deficiency anemia due to chronic blood loss Iron deficiency anemia secondary to blood loss (chronic) CKD (chronic kidney disease) stage 4, GFR 15-29 ml/min (HCC) Chronic kidney disease, Stage IV (severe) Myelodysplastic syndrome (HCC) Myelodysplastic syndrome, unspecified documented in this encounter [facility] note* Diagnosis Myelodysplastic syndrome (HCC)- Primary Myelodysplastic syndrome, unspecified CRF (chronic renal failure), stage 4 (severe) (HCC) Anemia of chronic renal failure, stage 4 (severe) (HCC) 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 documented in this encounter [facility] note* Diagnosis Acute heart failure, unspecified heart failure type (HCC)- Primary documented in this encounter [facility] note* Diagnosis Myelodysplastic syndrome (HCC)- Primary Myelodysplastic syndrome, unspecified CRF (chronic renal failure), stage 4 (severe) (HCC) Anemia of chronic renal failure, stage 4 (severe) (HCC) Iron deficiency anemia due to chronic blood loss Iron deficiency anemia secondary to blood loss (chronic) CKD (chronic kidney disease) stage 4, GFR 15-29 ml/min (HCC) Chronic kidney disease, Stage IV (severe) documented in this encounter [facility] note* Diagnosis Myelodysplastic syndrome (HCC)- Primary Myelodysplastic syndrome, unspecified documented in this encounter [facility] note* Diagnosis Myelodysplastic syndrome (HCC)- Primary Myelodysplastic syndrome, unspecified documented in this encounter [facility] note* Diagnosis Myelodysplastic syndrome (HCC)- Primary Myelodysplastic syndrome, unspecified documented in this encounter [facility] note* Diagnosis Myelodysplastic syndrome (HCC)- Primary Myelodysplastic syndrome, unspecified CRF (chronic renal failure), stage 4 (severe) (HCC) Anemia of chronic renal failure, stage 4 (severe) (HCC) 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 documented in this encounter [facility] note* Diagnosis Anemia of chronic renal failure, stage 4 (severe) (HCC)- Primary Iron deficiency anemia due to chronic blood loss Iron deficiency anemia secondary to blood loss (chronic) Myelodysplastic syndrome (HCC) Myelodysplastic syndrome, unspecified documented in this encounter [facility] note* Diagnosis Myelodysplastic syndrome (HCC)- Primary Myelodysplastic syndrome, unspecified CRF (chronic renal failure), stage 4 (severe) (HCC) Anemia of chronic renal failure, stage 4 (severe) (HCC) Iron deficiency anemia due to chronic blood loss Iron deficiency anemia secondary to blood loss (chronic) CKD (chronic kidney disease) stage 4, GFR 15-29 ml/min (HCC) Chronic kidney disease, Stage IV (severe) documented in this encounter [facility] note* Diagnosis Myelodysplastic syndrome (HCC)- Primary Myelodysplastic syndrome, unspecified [facility] Diagnosis Myelodysplastic syndrome (HCC)- Primary Myelodysplastic syndrome, unspecified CRF (chronic renal failure), stage 4 (severe) (HCC) 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 documented in this encounter [facility] note* Diagnosis CRF (chronic renal failure), stage 4 (severe) (HCC)- Primary Myelodysplastic syndrome (HCC) Myelodysplastic syndrome, unspecified [facility] [place] [facility]* Diagnosis Myelodysplastic syndrome (HCC) Myelodysplastic syndrome, unspecified CRF (chronic renal failure), stage 4 (severe) (HCC) Anemia of chronic renal failure, stage 4 (severe) (HCC) 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 [facility] [place] [facility]* Diagnosis Anemia of chronic renal failure, stage 4 (severe) (HCC)- Primary [facility] [place]* Diagnosis Myelodysplastic syndrome (HCC)- Primary Myelodysplastic syndrome, unspecified Anemia of chronic renal failure, stage 4 (severe) (HCC) documented in this encounter [facility] note* Diagnosis Anemia of chronic renal failure, stage 4 (severe) (HCC)- Primary Iron deficiency anemia due to chronic blood loss Iron deficiency anemia secondary to blood loss (chronic) Myelodysplastic syndrome (HCC) Myelodysplastic syndrome, unspecified CRF (chronic renal failure), stage 4 (severe) (HCC) CKD (chronic kidney disease) stage 4, GFR 15-29 ml/min (HCC) Chronic kidney disease, Stage IV (severe) documented in this encounter [facility] note* Diagnosis CRF (chronic renal failure), stage 4 (severe) (HCC)- Primary documented in this encounter [facility] note* Diagnosis Myelodysplastic syndrome (HCC)- Primary Myelodysplastic syndrome, unspecified CRF (chronic renal failure), stage 4 (severe) (HCC) documented in this encounter [facility] note* Diagnosis CRF (chronic renal failure), stage 4 (severe) (HCC)- Primary Anemia of chronic renal failure, stage 4 (severe) (HCC) Iron deficiency anemia due to chronic blood loss Iron deficiency anemia secondary to blood loss (chronic) CKD (chronic kidney disease) stage 4, GFR 15-29 ml/min (HCC) Chronic kidney disease, Stage IV (severe) Myelodysplastic syndrome (HCC) Myelodysplastic syndrome, unspecified [facility] [place] Diagnosis Anemia of chronic renal failure, stage 4 (severe) (HCC)- Primary Iron deficiency anemia due to chronic blood loss Iron deficiency anemia secondary to blood loss (chronic) Myelodysplastic syndrome (HCC) Myelodysplastic syndrome, unspecified CRF (chronic renal failure), stage 4 (severe) (HCC) CKD (chronic kidney disease) stage 4, GFR 15-29 ml/min (HCC) Chronic kidney disease, Stage IV (severe) [facility] [place] [facility]* Diagnosis Myelodysplastic syndrome (HCC)- Primary Myelodysplastic syndrome, unspecified CKD (chronic kidney disease) stage 4, GFR 15-29 ml/min (HCC) Chronic kidney disease, Stage IV (severe) Anemia of chronic renal failure, stage 4 (severe) (HCC) Iron deficiency anemia due to chronic blood loss Iron deficiency anemia secondary to blood loss (chronic) [facility] [place] [facility]* Diagnosis Myelodysplastic syndrome (HCC)- Primary Myelodysplastic syndrome, unspecified Anemia of chronic renal failure, stage 4 (severe) (HCC) documented [facility] [place] [facility]* Diagnosis Anemia of chronic renal failure, stage 4 (severe) (HCC)- Primary Iron deficiency anemia due to chronic blood loss Iron deficiency anemia secondary to blood loss (chronic) Myelodysplastic syndrome (HCC) Myelodysplastic syndrome, unspecified CRF (chronic renal failure), stage 4 (severe) (HCC) CKD (chronic kidney disease) stage 4, GFR 15-29 ml/min (HCC) Chronic kidney disease, Stage IV (severe) [facility] [place]* Diagnosis Myelodysplastic syndrome (HCC)- Primary Myelodysplastic syndrome, unspecified CKD (chronic kidney disease) stage 4, GFR 15-29 ml/min (HCC) Chronic kidney disease, Stage IV (severe) Anemia of chronic renal failure, stage 4 (severe) (HCC) documented in this encounter [facility] note* Diagnosis Malignant neoplasm of prostate (HCC)- Primary Malignant neoplasm of prostate [facility] [place] [facility]* Diagnosis Myelodysplastic syndrome (HCC)- Primary Myelodysplastic syndrome, unspecified documented in this encounter [facility] note* Diagnosis MDS (myelodysplastic syndrome) (HCC)- Primary Myelodysplastic syndrome, unspecified documented in this encounter [facility] note* Diagnosis Myelodysplastic syndrome (HCC)- Primary Myelodysplastic syndrome, unspecified CRF (chronic renal failure), stage 4 (severe) (HCC) documented in this encounter [facility] note* Diagnosis Myelodysplastic syndrome (HCC)- Primary Myelodysplastic syndrome, unspecified CRF (chronic renal failure), stage 4 (severe) (HCC) Anemia of chronic renal failure, stage 4 (severe) (HCC) documented in this encounter [facility] note* Diagnosis CRF (chronic renal failure), stage 4 (severe) (HCC)- Primary Anemia of chronic renal failure, stage 4 (severe) (HCC) Iron deficiency anemia due to chronic blood loss Iron deficiency anemia secondary to blood loss (chronic) CKD (chronic kidney disease) stage 4, GFR 15-29 ml/min (HCC) Chronic kidney disease, Stage IV (severe) Myelodysplastic syndrome (HCC) Myelodysplastic syndrome, unspecified documented in this encounter [facility] note* Diagnosis Anemia of chronic renal failure, stage 4 (severe) (HCC)- Primary Iron deficiency anemia due to chronic blood loss Iron deficiency anemia secondary to blood loss (chronic) Myelodysplastic syndrome (HCC) Myelodysplastic syndrome, unspecified CRF (chronic renal failure), stage 4 (severe) (HCC) CKD (chronic kidney disease) stage 4, GFR 15-29 ml/min (HCC) Chronic kidney disease, Stage IV (severe) documented in this encounter [facility] note* Diagnosis MDS (myelodysplastic syndrome) (HCC)- Primary Myelodysplastic syndrome, unspecified Anemia of chronic renal failure, stage 4 (severe) (HCC) 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 CRF (chronic renal failure), stage 4 (severe) (HCC) documented in this encounter [facility] note* Diagnosis CRF (chronic renal failure), stage 4 (severe) (HCC)- Primary Anemia of chronic renal failure, stage 4 (severe) (HCC) Iron deficiency anemia due to chronic blood loss Iron deficiency anemia secondary to blood loss (chronic) CKD (chronic kidney disease) stage 4, GFR 15-29 ml/min (HCC) Chronic kidney disease, Stage IV (severe) Myelodysplastic syndrome (HCC) Myelodysplastic syndrome, unspecified [facility] [place] [facility]* Diagnosis Myelodysplastic syndrome (HCC)- Primary Myelodysplastic [...] inoculation against influenza documented in this encounter [facility] note* Diagnosis Myelodysplastic syndrome (HCC)- Primary Myelodysplastic syndrome, unspecified MDS (myelodysplastic syndrome) (HCC) Myelodysplastic syndrome, unspecified 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 CRF (chronic renal failure), stage 4 (severe) (HCC) documented in this encounter [facility] note* Diagnosis Myelodysplastic syndrome (HCC)- Primary Myelodysplastic syndrome, unspecified CRF (chronic renal failure), stage 4 (severe) (HCC) Anemia of chronic renal failure, stage 4 (severe) (HCC) Iron deficiency anemia due to chronic blood loss Iron deficiency anemia secondary to blood loss (chronic) CKD (chronic kidney disease) stage 4, GFR 15-29 ml/min (HCC) Chronic kidney disease, Stage IV (severe) documented in this encounter [facility] note* Diagnosis Myelodysplastic syndrome (HCC)- Primary Myelodysplastic syndrome, unspecified documented in this encounter [facility] note* Diagnosis MDS (myelodysplastic syndrome) (HCC)- Primary Myelodysplastic syndrome, unspecified Dependent for standing 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 CRF (chronic renal failure), stage 4 (severe) (HCC) 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 documented in this encounter [facility] note* Diagnosis Myelodysplastic syndrome (HCC)- Primary Myelodysplastic syndrome, unspecified CRF (chronic renal failure), stage 4 (severe) (HCC) Anemia of chronic renal failure, stage 4 (severe) (HCC) Iron deficiency anemia due to chronic blood loss Iron deficiency anemia secondary to blood loss (chronic) CKD (chronic kidney disease) stage 4, GFR 15-29 ml/min (HCC) Chronic kidney disease, Stage IV (severe) documented in this encounter [facility] note* Diagnosis MDS (myelodysplastic syndrome) (HCC)- Primary Myelodysplastic syndrome, unspecified documented in this encounter [facility] note* Diagnosis Myelodysplastic syndrome (HCC)- Primary Myelodysplastic syndrome, unspecified 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 CRF (chronic renal failure), stage 4 (severe) (HCC) CKD (chronic kidney disease) stage 4, GFR 15-29 ml/min (HCC) Chronic kidney disease, Stage IV (severe) documented in this encounter [facility] note* Diagnosis Myelodysplastic syndrome (HCC)- Primary Myelodysplastic syndrome, unspecified CRF (chronic renal failure), stage 4 (severe) (HCC) Anemia of chronic renal failure, stage 4 (severe) (HCC) Iron deficiency anemia due to chronic blood loss Iron deficiency anemia secondary to blood loss (chronic) CKD (chronic kidney disease) stage 4, GFR 15-29 ml/min (HCC) Chronic kidney disease, Stage IV (severe) documented in this encounter [facility] note* Diagnosis MDS (myelodysplastic syndrome) (HCC)- Primary Myelodysplastic syndrome, unspecified CRF (chronic renal failure), stage 4 (severe) (HCC) Anemia of chronic renal failure, stage 4 (severe) (HCC) documented in this encounter [facility] note* Diagnosis Myelodysplastic syndrome (HCC)- Primary Myelodysplastic syndrome, unspecified documented in this encounter [facility] note* Diagnosis MDS (myelodysplastic syndrome) (HCC)- [...] Stage IV (severe) [facility] [place] [facility]* Diagnosis Myelodysplastic syndrome (HCC)- Primary Myelodysplastic syndrome, unspecified Anemia of chronic renal failure, stage 4 (severe) (HCC) Iron deficiency anemia due to chronic blood loss Iron deficiency anemia secondary to blood loss (chronic) CRF (chronic renal failure), stage 4 (severe) (HCC) CKD (chronic kidney disease) stage 4, GFR 15-29 ml/min (HCC) Chronic kidney disease, Stage IV (severe) documented in this encounter [facility] note* Diagnosis Myelodysplastic syndrome (HCC)- Primary Myelodysplastic syndrome, unspecified [facility] [place] [facility]* Diagnosis MDS (myelodysplastic syndrome) (HCC)- Primary Myelodysplastic syndrome, unspecified CRF (chronic renal failure), stage 4 (severe) (HCC) documented [facility] [place] [facility]* Diagnosis Myelodysplastic syndrome (HCC)- Primary Myelodysplastic syndrome, unspecified CRF (chronic renal failure), stage 4 (severe) (HCC) Anemia of chronic renal failure, stage 4 (severe) (HCC) Iron deficiency anemia due to chronic blood loss Iron deficiency anemia secondary to blood loss (chronic) CKD (chronic kidney disease) stage 4, GFR 15-29 ml/min (HCC) Chronic kidney disease, Stage IV (severe) documented in this encounter [facility] note* Diagnosis Myelodysplastic syndrome (HCC)- Primary Myelodysplastic syndrome, unspecified [facility] [place] [facility]* Diagnosis Myelodysplastic syndrome (HCC)- Primary Myelodysplastic syndrome, unspecified CRF (chronic renal failure), stage 4 (severe) (HCC) Anemia of chronic renal failure, stage 4 (severe) (HCC) Iron deficiency anemia due to chronic blood loss Iron deficiency anemia secondary to blood loss (chronic) CKD (chronic kidney disease) stage 4, GFR 15-29 ml/min (HCC) Chronic kidney disease, Stage IV (severe) documented [facility] [place] [facility]* Diagnosis Myelodysplastic syndrome (HCC)- Primary Myelodysplastic syndrome, unspecified 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 Anemia of chronic renal failure, stage 4 (severe) (HCC) documented in this encounter [facility] note* Diagnosis MDS (myelodysplastic syndrome) (HCC)- Primary Myelodysplastic syndrome, unspecified documented in this encounter [facility] note* Diagnosis Myelodysplastic syndrome (HCC)- Primary Myelodysplastic syndrome, unspecified documented in this encounter [facility] note* Diagnosis MDS (myelodysplastic syndrome) (HCC)- Primary Myelodysplastic syndrome, unspecified 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 Anemia of chronic renal failure, stage 4 (severe) (HCC) Myelodysplastic syndrome (HCC) Myelodysplastic syndrome, unspecified documented in this encounter [facility] note* Diagnosis MDS (myelodysplastic syndrome) (HCC)- Primary Myelodysplastic syndrome, unspecified Anemia of chronic renal failure, stage 4 (severe) (HCC) CRF (chronic renal failure), stage 4 (severe) (HCC) documented in this encounter [facility] note* Diagnosis Anemia of chronic renal failure, stage 4 (severe) (HCC)- Primary Iron deficiency anemia due to chronic blood loss Iron deficiency anemia secondary to blood loss (chronic) Myelodysplastic syndrome (HCC) Myelodysplastic syndrome, unspecified documented in this encounter [facility] note* Diagnosis Myelodysplastic syndrome (HCC)- Primary Myelodysplastic syndrome, unspecified CRF (chronic renal failure), stage 4 (severe) (HCC) Anemia of chronic renal failure, stage 4 (severe) (HCC) Iron deficiency anemia due to chronic blood loss Iron deficiency anemia secondary to blood loss (chronic) CKD (chronic kidney disease) stage 4, GFR 15-29 ml/min (HCC) Chronic kidney disease, Stage IV (severe) documented in this encounter [facility] note* Diagnosis MDS (myelodysplastic syndrome) (HCC)- Primary Myelodysplastic syndrome, unspecified Anemia of chronic renal failure, stage 4 (severe) (HCC) CRF (chronic renal failure), stage 4 (severe) (HCC) 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 Myelodysplastic syndrome (HCC) Myelodysplastic syndrome, unspecified documented in this encounter [facility] note* Diagnosis Iron deficiency anemia due to chronic blood loss- Primary Iron deficiency anemia secondary to blood loss (chronic) MDS (myelodysplastic syndrome) (HCC) Myelodysplastic syndrome, unspecified Anemia of chronic renal failure, stage 4 (severe) (HCC) [facility] Diagnosis Myelodysplastic syndrome (HCC)- Primary Myelodysplastic syndrome, unspecified Anemia of chronic renal failure, stage 4 (severe) (HCC) 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 [facility] [place] [facility]* Diagnosis Myelodysplastic syndrome (HCC)- Primary Myelodysplastic syndrome, unspecified [facility] [place] [facility]* Diagnosis Myelodysplastic syndrome (HCC)- Primary Myelodysplastic syndrome, unspecified CRF (chronic renal failure), stage 4 (severe) (HCC) Anemia of chronic renal failure, stage 4 (severe) (HCC) Iron deficiency anemia due to chronic blood loss Iron deficiency anemia secondary to blood loss (chronic) CKD (chronic kidney disease) stage 4, GFR 15-29 ml/min (HCC) Chronic kidney disease, Stage IV (severe) [facility] [place] [facility]* Diagnosis MDS (myelodysplastic syndrome) (HCC)- Primary [...] due to hypovolemia [facility] [place] [facility]* Diagnosis Myelodysplastic syndrome (HCC)- Primary Myelodysplastic syndrome, unspecified [facility] [place] [facility]* Diagnosis MDS (myelodysplastic syndrome) (HCC)- Primary Myelodysplastic syndrome, unspecified Anemia of chronic renal failure, stage 4 (severe) (HCC) [facility] [place] [facility]* Diagnosis MDS (myelodysplastic syndrome) (HCC)- Primary Myelodysplastic syndrome, unspecified Iron deficiency anemia due to chronic blood loss Iron deficiency anemia secondary to blood loss (chronic) Anemia of chronic renal failure, stage 4 (severe) (HCC) [facility] Diagnosis Anemia of chronic renal failure, stage 4 (severe) (HCC)- Primary Iron deficiency anemia due to chronic blood loss Iron deficiency anemia secondary to blood loss (chronic) MDS (myelodysplastic syndrome) (HCC) Myelodysplastic syndrome, unspecified [facility] [place] [facility]* Diagnosis MDS (myelodysplastic syndrome) (HCC)- Primary Myelodysplastic syndrome, unspecified Anemia of chronic renal failure, stage 4 (severe) (HCC) Iron deficiency anemia due to chronic blood loss Iron deficiency anemia secondary to blood loss (chronic) [facility] [place] [facility]* Diagnosis MDS (myelodysplastic syndrome) (HCC)- Primary Myelodysplastic syndrome, unspecified Anemia of chronic renal failure, stage 4 (severe) (HCC) documented in this encounter [facility] note* Diagnosis MDS (myelodysplastic syndrome) (HCC)- Primary Myelodysplastic syndrome, unspecified Anemia, unspecified type documented in this encounter [facility] note* Diagnosis MDS (myelodysplastic syndrome) (HCC)- Primary Myelodysplastic syndrome, unspecified [facility] [place] [facility]* Diagnosis Anemia of chronic renal failure, stage 4 (severe) (HCC)- Primary Iron deficiency anemia due to chronic blood loss Iron deficiency anemia secondary to blood loss (chronic) MDS (myelodysplastic syndrome) (HCC) Myelodysplastic syndrome, unspecified documented in this encounter [facility] note* Diagnosis MDS (myelodysplastic syndrome) (HCC)- Primary Myelodysplastic syndrome, unspecified Anemia of chronic renal failure, stage 4 (severe) (HCC) Type 2 diabetes mellitus with stage 3 chronic kidney disease, with long-term current use of insulin, unspecified whether stage 3a or 3b CKD (HCC) documented in this encounter [facility] noteNo assessment information [facility] Work [facility]: [facility] note* Diagnosis Oxygen deficit- Primary Hypoxemia Epistaxis MDS (myelodysplastic syndrome) (HCC) Myelodysplastic syndrome, unspecified documented in this encounter [facility] note* Diagnosis Onset Date Resolution Status 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, stage 3b acute Chronic systolic heart failure acute 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 acute Gout acute Myelodysplastic syndrome acu te Vitamin D deficiency [facility] Work Phone: Evaluation note* Diagnosis CKD (chronic kidney disease) stage 4, GFR 15-29 ml/min (HCC)- Primary Chronic kidney disease, Stage IV (severe) [facility] [place] [facility]* Diagnosis Screening for genitourinary condition Screening for other and unspecified genitourinary condition documented [facility] [place] [facility]* Diagnosis Epistaxis- Primary documented in this encounter [facility] note* Diagnosis Onset Date Resolution Status 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, stage 3b acute Chronic systolic heart failure acute 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 acute Gout acute Myelodysplastic syndrome acu te Vitamin D deficiency acute Rash acute [facility] Work Phone: Hospital course Narrative No data available for this section [facility] No data available for this section [facility] No data available for this section [facility] Summary Purpose Family History Relationship Condition Age at Onset Recorded Date/T eleazar father Cerebrovascular accident (CVA) Unknown Not Specified Hypertension Unknown Malignant neoplasm Unknown Relationship Condition Age at Onset Recorded Date/T eleazar father Cerebrovascular accident (CVA) Unknown mother Hypertension Unknown Malignant neoplasm Unknown Advance Directives Documents on File Type Date Recorded 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 Advance Directive(s) 07/06/2020 6:15 PM Documents on File Type Date Recorded 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 Advance Directive(s) 07/06/2020 6:15 PM Advance Directive Response Recorded Date/ Time Advance Directives No October 16, 2 024 4:01pm Medications Administered Section Inactive [...] to 3 most recent administrations Medication Order [facility] Action Action Dose Rate Site cyanocobalamin [...] to 3 most recent administrations Medication Order [facility] Action Action Dose Rate Site epoetin larisa-epbx 80,000 Units [...] to 3 most recent administrations Medication Order [facility] Action Action Date Dose Rate Site decitabine 21.1 mg subcutaneous injection (DACOGEN) 21.1 mg (0.2 mg/kg/dose 105.5 kg Treatment plan Recorded weight), SUBCUTANEOUS, ONCE, 1 dose, On Fri06/25/22 at 1400, EXP: 1400 06/25/22 Hazardous Chemotherapy Drug: Use appropriate PPE. Refrigerate. Given 06/25/2022 2:00 PM EST 21.1 mg Arm, Left Inactive Administered Medications - up to 3 most recent administrations Medication Order [facility] Action Action Date Dose Rate Site cyanocobalamin [...] to 3 most recent administrations Medication Order [facility] Action Action Date Dose Rate Site [...] Order MAR Action Action Dose Rate Site luspatercept-aamt 100 mg in syringe 2 mL (REBLOZYL) 100 mg (rounded from 103.5 mg = 1 mg/kg/dose 103.5 kg Treatment plan Recorded weight), SUBCUTANEOUS, ONCE, 1 dose, On Fri08/28/22 at 1600, EXP: 8173 Refrigerate - EXP: (24 HR) Inject into [...] Referral Specialty Diagnoses / Procedures Referred By Contac t Referred To Contact Diagnoses Myelodysplastic syndrome (HCC) Procedures CONSULT TO HEMATOLOGY/ONCOLOGY OFFICE/OUTPATIENT [facility] 60-74 MINUTES Asher Hummel MD [address] [place] [address] [place] [address] Referral ID Status Reason Start Date Expiration Date Visits Requested Visits Authorized [id number] Authorized PCP Requested Referral 03/15/2022 03/15/2023 1 1 Chief Complaint and Reason for Visit Chief Complaint nosebleed Chief Complaint nosebleed RENAL CKD Reason for Visit ANS (arteriolar neph rosclerosis) Chronic kidney disease, stage 3b Chronic systolic heart failure Diabetic nephropathy associated with type 2 diabetes mellitus Gout Myelodysplastic syndrome Vitamin D deficiency Chief Complaint RENAL CKD est care Reason for Visit ANS (arteriolar neph rosclerosis) Chronic kidney disease, stage 3b Chronic systolic heart failure Diabetic nephropathy associated with type 2 diabetes mellitus Gout Myelodysplastic syndrome Vitamin D deficiency Rash Additional Source Comments (unrecognized sect ion and content) No Status Records FoundNo Status Records FoundNo Status Records FoundNo Status Records FoundNo Status Records FoundNo Status Records FoundNo Status Records FoundNo Status Records FoundNo Status Records Found INFORMATION SOURCE (unrecogn ized section and content) DATE CREATED AUTHOR 07/05/2018 [facility] DATE CREATED AUTHOR AUTHOR'S ORGANIZ ATION 12/22/2021 [facility] DATE CREATED AUTHOR AUTHOR'S ORGANIZ ATION 01/03/2023 [facility] DATE CREATED AUTHOR AUTHOR'S ORGANIZ ATION 08/20/2023 [facility] DATE CREATED AUTHOR AUTHOR'S ORGANIZ ATION 10/29/2023 [facility] DATE CREATED AUTHOR AUTHOR'S ORGANIZ ATION 11/05/2023 [facility] DATE CREATED AUTHOR AUTHOR'S ORGANIZ ATION 11/15/2023 Hewitt Alberto [facility] DATE CREATED AUTHOR AUTHOR'S ORGANIZ ATION 01/07/2024 [facility] DATE CREATED AUTHOR AUTHOR'S ORGANIZ ATION 01/17/2024 [facility] Source Comments (unrecognize d section and content) In the event this informatio n is protected by the Federal Confidentiality of Alcohol and Drug Abuse Patient Records regulations: The Federal rules restrict any use of the information to criminally investigate or prosecute any alcohol or drug abuse patient.[facility] the event this information is protected by the Federal Confidentiality of Alcohol and Drug Abuse Patient Records regulations: The Federal rules restrict any use of the information to criminally investigate or prosecute any alcohol or drug abuse patient.[facility] System[facility] the event this information is protected by the Federal Confidentiality of Alcohol and Drug Abuse Patient Records regulations: The Federal rules restrict any use of the information to criminally investigate or prosecute any alcohol or drug abuse patient.[facility] System[facility] the event this information is protected by the Federal Confidentiality of Alcohol and Drug Abuse Patient Records regulations: The Federal rules restrict any use of the information to criminally investigate or prosecute any alcohol or drug abuse patient.[facility] System[facility] the event this information is protected by the Federal Confidentiality of Alcohol and Drug Abuse Patient Records regulations: The Federal rules restrict any use of the information to criminally investigate or prosecute any alcohol or drug abuse patient.[facility] System[facility] the event this information is protected by the Federal Confidentiality of Alcohol and Drug Abuse Patient Records regulations: The Federal rules restrict any use of the information to criminally investigate or prosecute any alcohol or drug abuse patient.[facility] System[facility] the event this information is protected by the Federal Confidentiality of Alcohol and Drug Abuse Patient Records regulations: The Federal rules restrict any use of the information to criminally investigate or prosecute any alcohol or drug abuse patient.[facility] SystemIn the event this information is protected by the Federal Confidentiality of Alcohol and Drug Abuse Patient Records regulations: The Federal rules restrict any use of the information to criminally investigate or prosecute any alcohol or drug abuse patient.[facility] SystemIn the event this information is protected by the Federal Confidentiality of Alcohol and Drug Abuse Patient Records regulations: The Federal rules restrict any use of the information to criminally investigate or prosecute any alcohol or drug abuse patient.[facility] SystemIn the event this information is protected by the Federal Confidentiality of Alcohol and Drug Abuse Patient Records regulations: The Federal rules restrict any use of the information to criminally investigate or prosecute any alcohol or drug abuse patient.[facility] SystemIn the event this information is protected by the Federal Confidentiality of Alcohol and Drug Abuse Patient Records regulations: The Federal rules restrict any use of the information to criminally investigate or prosecute any alcohol or drug abuse patient.[facility] SystemIn the event this information is protected by the Federal Confidentiality of Alcohol and Drug Abuse Patient Records regulations: The Federal rules restrict any use of the information to criminally investigate or prosecute any alcohol or drug abuse patient.[facility] SystemIn the event this information is protected by the Federal Confidentiality of Alcohol and Drug Abuse Patient Records regulations: The Federal rules restrict any use of the information to criminally investigate or prosecute any alcohol or drug abuse patient.[facility] SystemIn the event this information is protected by the Federal Confidentiality of Alcohol and Drug Abuse Patient Records regulations: The Federal rules restrict any use of the information to criminally investigate or prosecute any alcohol or drug abuse patient.[facility] SystemIn the event this information is protected by the Federal Confidentiality of Alcohol and Drug Abuse Patient Records regulations: The Federal rules restrict any use of the information to criminally investigate or prosecute any alcohol or drug abuse patient.[facility] SystemIn the event this information is protected by the Federal Confidentiality of Alcohol and Drug Abuse Patient Records regulations: The Federal rules restrict any use of the information to criminally investigate or prosecute any alcohol or drug abuse patient.[facility] SystemIn the event this information is protected by the Federal Confidentiality of Alcohol and Drug Abuse Patient Records regulations: The Federal rules restrict any use of the information to criminally investigate or prosecute any alcohol or drug abuse patient.[facility] SystemIn the event this information is protected by the Federal Confidentiality of Alcohol and Drug Abuse Patient Records regulations: The Federal rules restrict any use of the information to criminally investigate or prosecute any alcohol or drug abuse patient.[facility] SystemIn the event this information is protected by the Federal Confidentiality of Alcohol and Drug Abuse Patient Records regulations: The Federal rules restrict any use of the information to criminally investigate or prosecute any alcohol or drug abuse patient.[facility] SystemIn the event this information is protected by the Federal Confidentiality of Alcohol and Drug Abuse Patient Records regulations: The Federal rules restrict any use of the information to criminally investigate or prosecute any alcohol or drug abuse patient.[facility] SystemIn the event this information is protected by the Federal Confidentiality of Alcohol and Drug Abuse Patient Records regulations: The Federal rules restrict any use of the information to criminally investigate or prosecute any alcohol or drug abuse patient.[facility] SystemIn the event this information is protected by the Federal Confidentiality of Alcohol and Drug Abuse Patient Records regulations: The Federal rules restrict any use of the information to criminally investigate or prosecute any alcohol or drug abuse patient.[facility] SystemIn the event this information is protected by the Federal Confidentiality of Alcohol and Drug Abuse Patient Records regulations: The Federal rules restrict any use of the information to criminally investigate or prosecute any alcohol or drug abuse patient.[facility] SystemIn the event this information is protected by the Federal Confidentiality of Alcohol and Drug Abuse Patient Records regulations: The Federal rules restrict any use of the information to criminally investigate or prosecute any alcohol or drug abuse patient.[facility] SystemIn the event this information is protected by the Federal Confidentiality of Alcohol and Drug Abuse Patient Records regulations: The Federal rules restrict any use of the information to criminally investigate or prosecute any alcohol or drug abuse patient.[facility] SystemIn the event this information is protected by the Federal Confidentiality of Alcohol and Drug Abuse Patient Records regulations: The Federal rules restrict any use of the information to criminally investigate or prosecute any alcohol or drug abuse patient.[facility] SystemIn the event this information is protected by the Federal Confidentiality of Alcohol and Drug Abuse Patient Records regulations: The Federal rules restrict any use of the information to criminally investigate or prosecute any alcohol or drug abuse patient.[facility] SystemIn the event this information is protected by the Federal Confidentiality of Alcohol and Drug Abuse Patient Records regulations: The Federal rules restrict any use of the information to criminally investigate or prosecute any alcohol or drug abuse patient.[facility] SystemIn the event this information is protected by the Federal Confidentiality of Alcohol and Drug Abuse Patient Records regulations: The Federal rules restrict any use of the information to criminally investigate or prosecute any alcohol or drug abuse patient.[facility] SystemIn the event this information is protected by the Federal Confidentiality of Alcohol and Drug Abuse Patient Records regulations: The Federal rules restrict any use of the information to criminally investigate or prosecute any alcohol or drug abuse patient.[facility] SystemIn the event this information is protected by the Federal Confidentiality of Alcohol and Drug Abuse Patient Records regulations: The Federal rules restrict any use of the information to criminally investigate or prosecute any alcohol or drug abuse patient.[facility] SystemIn the event this information is protected by the Federal Confidentiality of Alcohol and Drug Abuse Patient Records regulations: The Federal rules restrict any use of the information to criminally investigate or prosecute any alcohol or drug abuse patient.[facility] SystemIn the event this information is protected by the Federal Confidentiality of Alcohol and Drug Abuse Patient Records regulations: The Federal rules restrict any use of the information to criminally investigate or prosecute any alcohol or drug abuse patient.[facility] SystemIn the event this information is protected by the Federal Confidentiality of Alcohol and Drug Abuse Patient Records regulations: The Federal rules restrict any use of the information to criminally investigate or prosecute any alcohol or drug abuse patient.[facility] SystemIn the event this information is protected by the Federal Confidentiality of Alcohol and Drug Abuse Patient Records regulations: The Federal rules restrict any use of the information to criminally investigate or prosecute any alcohol or drug abuse patient.[facility] SystemIn the event this information is protected by the Federal Confidentiality of Alcohol and Drug Abuse Patient Records regulations: The Federal rules restrict any use of the information to criminally investigate or prosecute any alcohol or drug abuse patient.[facility] SystemIn the event this information is protected by the Federal Confidentiality of Alcohol and Drug Abuse Patient Records regulations: The Federal rules restrict any use of the information to criminally investigate or prosecute any alcohol or drug abuse patient.[facility] SystemIn the event this information is protected by the Federal Confidentiality of Alcohol and Drug Abuse Patient Records regulations: The Federal rules restrict any use of the information to criminally investigate or prosecute any alcohol or drug abuse patient.[facility]In the event this information is protected by the Federal Confidentiality of Alcohol and Drug Abuse Patient Records regulations: The Federal rules restrict any use of the information to criminally investigate or prosecute any alcohol or drug abuse patient.[facility]In the event this information is protected by the Federal Confidentiality of Alcohol and Drug Abuse Patient Records regulations: The Federal rules restrict any use of the information to criminally investigate or prosecute any alcohol or drug abuse patient.[facility]In the event this information is protected by the Federal Confidentiality of Alcohol and Drug Abuse Patient Records regulations: The Federal rules restrict any use of the information to criminally investigate or prosecute any alcohol or drug abuse patient.[facility]In the event this information is protected by the Federal Confidentiality of Alcohol and Drug Abuse Patient Records regulations: The Federal rules restrict any use of the information to criminally investigate or prosecute any alcohol or drug abuse patient.[facility]In the event this information is protected by the Federal Confidentiality of Alcohol and Drug Abuse Patient Records regulations: The Federal rules restrict any use of the information to criminally investigate or prosecute any alcohol or drug abuse patient.[facility]In the event this information is protected by the Federal Confidentiality of Alcohol and Drug Abuse Patient Records regulations: The Federal rules restrict any use of the information to criminally investigate or prosecute any alcohol or drug abuse patient.[facility]In the event this information is protected by the Federal Confidentiality of Alcohol and Drug Abuse Patient Records regulations: The Federal rules restrict any use of the information to criminally investigate or prosecute any alcohol or drug abuse patient.[facility]In the event this information is protected by the Federal Confidentiality of Alcohol and Drug Abuse Patient Records regulations: The Federal rules restrict any use of the information to criminally investigate or prosecute any alcohol or drug abuse patient.[facility]In the event this information is protected by the Federal Confidentiality of Alcohol and Drug Abuse Patient Records regulations: The Federal rules restrict any use of the information to criminally investigate or prosecute any alcohol or drug abuse patient.[facility]In the event this information is protected by the Federal Confidentiality of Alcohol and Drug Abuse Patient Records regulations: The Federal rules restrict any use of the information to criminally investigate or prosecute any alcohol or drug abuse patient.[facility]In the event this information is protected by the Federal Confidentiality of Alcohol and Drug Abuse Patient Records regulations: The Federal rules restrict any use of the information to criminally investigate or prosecute any alcohol or drug abuse patient.[facility]In the event this information is protected by the Federal Confidentiality of Alcohol and Drug Abuse Patient Records regulations: The Federal rules restrict any use of the information to criminally investigate or prosecute any alcohol or drug abuse patient.[facility]In the event this information is protected by the Federal Confidentiality of Alcohol and Drug Abuse Patient Records regulations: The Federal rules restrict any use of the information to criminally investigate or prosecute any alcohol or drug abuse patient.[facility]In the event this information is protected by the Federal Confidentiality of Alcohol and Drug Abuse Patient Records regulations: The Federal rules restrict any use of the information to criminally investigate or prosecute any alcohol or drug abuse patient.[facility]In the event this information is protected by the Federal Confidentiality of Alcohol and Drug Abuse Patient Records regulations: The Federal rules restrict any use of the information to criminally investigate or prosecute any alcohol or drug abuse patient.[facility]In the event this information is protected by the Federal Confidentiality of Alcohol and Drug Abuse Patient Records regulations: The Federal rules restrict any use of the information to criminally investigate or prosecute any alcohol or drug abuse patient.[facility]In the event this information is protected by the Federal Confidentiality of Alcohol and Drug Abuse Patient Records regulations: The Federal rules restrict any use of the information to criminally investigate or prosecute any alcohol or drug abuse patient.[facility]In the event this information is protected by the Federal Confidentiality of Alcohol and Drug Abuse Patient Records regulations: The Federal rules restrict any use of the information to criminally investigate or prosecute any alcohol or drug abuse patient.[facility]In the event this information is protected by the Federal Confidentiality of Alcohol and Drug Abuse Patient Records regulations: The Federal rules restrict any use of the information to criminally investigate or prosecute any alcohol or drug abuse patient.[facility]In the event this information is protected by the Federal Confidentiality of Alcohol and Drug Abuse Patient Records regulations: The Federal rules restrict any use of the information to criminally investigate or prosecute any alcohol or drug abuse patient.[facility]In the event this information is protected by the Federal Confidentiality of Alcohol and Drug Abuse Patient Records regulations: The Federal rules restrict any use of the information to criminally investigate or prosecute any alcohol or drug abuse patient.[facility]In the event this information is protected by the Federal Confidentiality of Alcohol and Drug Abuse Patient Records regulations: The Federal rules restrict any use of the information to criminally investigate or prosecute any alcohol or drug abuse patient.[facility]In the event this information is protected by the Federal Confidentiality of Alcohol and Drug Abuse Patient Records regulations: The Federal rules restrict any use of the information to criminally investigate or prosecute any alcohol or drug abuse patient.[facility]In the event this information is protected by the Federal Confidentiality of Alcohol and Drug Abuse Patient Records regulations: The Federal rules restrict any use of the information to criminally investigate or prosecute any alcohol or drug abuse patient.[facility]In the event this information is protected by the Federal Confidentiality of Alcohol and Drug Abuse Patient Records regulations: The Federal rules restrict any use of the information to criminally investigate or prosecute any alcohol or drug abuse patient.[facility]In the event this information is protected by the Federal Confidentiality of Alcohol and Drug Abuse Patient Records regulations: The Federal rules restrict any use of the information to criminally investigate or prosecute any alcohol or drug abuse patient.[facility]In the event this information is protected by the Federal Confidentiality of Alcohol and Drug Abuse Patient Records regulations: The Federal rules restrict any use of the information to criminally investigate or prosecute any alcohol or drug abuse patient.[facility]In the event this information is protected by the Federal Confidentiality of Alcohol and Drug Abuse Patient Records regulations: The Federal rules restrict any use of the information to criminally investigate or prosecute any alcohol or drug abuse patient.[facility]In the event this information is protected by the Federal Confidentiality of Alcohol and Drug Abuse Patient Records regulations: The Federal rules restrict any use of the information to criminally investigate or prosecute any alcohol or drug abuse patient.[facility]In the event this information is protected by the Federal Confidentiality of Alcohol and Drug Abuse Patient Records regulations: The Federal rules restrict any use of the information to criminally investigate or prosecute any alcohol or drug abuse patient.[facility]In the event this information is protected by the Federal Confidentiality of Alcohol and Drug Abuse Patient Records regulations: The Federal rules restrict any use of the information to criminally investigate or prosecute any alcohol or drug abuse patient.[facility]In the event this information is protected by the Federal Confidentiality of Alcohol and Drug Abuse Patient Records regulations: The Federal rules restrict any use of the information to criminally investigate or prosecute any alcohol or drug abuse patient.[facility]In the event this information is protected by the Federal Confidentiality of Alcohol and Drug Abuse Patient Records regulations: The Federal rules restrict any use of the information to criminally investigate or prosecute any alcohol or drug abuse patient.[facility]In the event this information is protected by the Federal Confidentiality of Alcohol and Drug Abuse Patient Records regulations: The Federal rules restrict any use of the information to criminally investigate or prosecute any alcohol or drug abuse patient.[facility]In the event this information is protected by the Federal Confidentiality of Alcohol and Drug Abuse Patient Records regulations: The Federal rules restrict any use of the information to criminally investigate or prosecute any alcohol or drug abuse patient.[facility]In the event this information is protected by the Federal Confidentiality of Alcohol and Drug Abuse Patient Records regulations: The Federal rules restrict any use of the information to criminally investigate or prosecute any alcohol or drug abuse patient.[facility]In the event this information is protected by the Federal Confidentiality of Alcohol and Drug Abuse Patient Records regulations: The Federal rules restrict any use of the information to criminally investigate or prosecute any alcohol or drug abuse patient.[facility]In the event this information is protected by the Federal Confidentiality of Alcohol and Drug Abuse Patient Records regulations: The Federal rules restrict any use of the information to criminally investigate or prosecute any alcohol or drug abuse patient.[facility]In the event this information is protected by the Federal Confidentiality of Alcohol and Drug Abuse Patient Records regulations: The Federal rules restrict any use of the information to criminally investigate or prosecute any alcohol or drug abuse patient.[facility]In the event this information is protected by the Federal Confidentiality of Alcohol and Drug Abuse Patient Records regulations: The Federal rules restrict any use of the information to criminally investigate or prosecute any alcohol or drug abuse patient.[facility]In the event this information is protected by the Federal Confidentiality of Alcohol and Drug Abuse Patient Records regulations: The Federal rules restrict any use of the information to criminally investigate or prosecute any alcohol or drug abuse patient.[facility]In the event this information is protected by the Federal Confidentiality of Alcohol and Drug Abuse Patient Records regulations: The Federal rules restrict any use of the information to criminally investigate or prosecute any alcohol or drug abuse patient.[facility]In the event this information is protected by the Federal Confidentiality of Alcohol and Drug Abuse Patient Records regulations: The Federal rules restrict any use of the information to criminally investigate or prosecute any alcohol or drug abuse patient.[facility]In the event this information is protected by the Federal Confidentiality of Alcohol and Drug Abuse Patient Records regulations: The Federal rules restrict any use of the information to criminally investigate or prosecute any alcohol or drug abuse patient.[facility]In the event this information is protected by the Federal Confidentiality of Alcohol and Drug Abuse Patient Records regulations: The Federal rules restrict any use of the information to criminally investigate or prosecute any alcohol or drug abuse patient.[facility]In the event this information is protected by the Federal Confidentiality of Alcohol and Drug Abuse Patient Records regulations: The Federal rules restrict any use of the information to criminally investigate or prosecute any alcohol or drug abuse patient.[facility]In the event this information is protected by the Federal Confidentiality of Alcohol and Drug Abuse Patient Records regulations: The Federal rules restrict any use of the information to criminally investigate or prosecute any alcohol or drug abuse patient.[facility]In the event this information is protected by the Federal Confidentiality of Alcohol and Drug Abuse Patient Records regulations: The Federal rules restrict any use of the information to criminally investigate or prosecute any alcohol or drug abuse patient.[facility]In the event this information is protected by the Federal Confidentiality of Alcohol and Drug Abuse Patient Records regulations: The Federal rules restrict any use of the information to criminally investigate or prosecute any alcohol or drug abuse patient.[facility]In the event this information is protected by the Federal Confidentiality of Alcohol and Drug Abuse Patient Records regulations: The Federal rules restrict any use of the information to criminally investigate or prosecute any alcohol or drug abuse patient.[facility]In the event this information is protected by the Federal Confidentiality of Alcohol and Drug Abuse Patient Records regulations: The Federal rules restrict any use of the information to criminally investigate or prosecute any alcohol or drug abuse patient.[facility]In the event this information is protected by the Federal Confidentiality of Alcohol and Drug Abuse Patient Records regulations: The Federal rules restrict any use of the information to criminally investigate or prosecute any alcohol or drug abuse patient.[facility]In the event this information is protected by the Federal Confidentiality of Alcohol and Drug Abuse Patient Records regulations: The Federal rules restrict any use of the information to criminally investigate or prosecute any alcohol or drug abuse patient.[facility]In the event this information is protected by the Federal Confidentiality of Alcohol and Drug Abuse Patient Records regulations: The Federal rules restrict any use of the information to criminally investigate or prosecute any alcohol or drug abuse patient.[facility]In the event this information is protected by the Federal Confidentiality of Alcohol and Drug Abuse Patient Records regulations: The Federal rules restrict any use of the information to criminally investigate or prosecute any alcohol or drug abuse patient.[facility]In the event this information is protected by the Federal Confidentiality of Alcohol and Drug Abuse Patient Records regulations: The Federal rules restrict any use of the information to criminally investigate or prosecute any alcohol or drug abuse patient.[facility] SystemIn the event this information is protected by the Federal Confidentiality of Alcohol and Drug Abuse Patient Records regulations: The Federal rules restrict any use of the information to criminally investigate or prosecute any alcohol or drug abuse patient.[facility] SystemIn the event this information is protected by the Federal Confidentiality of Alcohol and Drug Abuse Patient Records regulations: The Federal rules restrict any use of the information to criminally investigate or prosecute any alcohol or drug abuse patient.[facility] SystemIn the event this information is protected by the Federal Confidentiality of Alcohol and Drug Abuse Patient Records regulations: The Federal rules restrict any use of the information to criminally investigate or prosecute any alcohol or drug abuse patient.[facility] SystemIn the event this information is protected by the Federal Confidentiality of Alcohol and Drug Abuse Patient Records regulations: The Federal rules restrict any use of the information to criminally investigate or prosecute any alcohol or drug abuse patient.[facility] SystemIn the event this information is protected by the Federal Confidentiality of Alcohol and Drug Abuse Patient Records regulations: The Federal rules restrict any use of the information to criminally investigate or prosecute any alcohol or drug abuse patient.[facility] SystemIn the event this information is protected by the Federal Confidentiality of Alcohol and Drug Abuse Patient Records regulations: The Federal rules restrict any use of the information to criminally investigate or prosecute any alcohol or drug abuse patient.[facility] SystemIn the event this information is protected by the Federal Confidentiality of Alcohol and Drug Abuse Patient Records regulations: The Federal rules restrict any use of the information to criminally investigate or prosecute any alcohol or drug abuse patient.[facility] SystemIn the event this information is protected by the Federal Confidentiality of Alcohol and Drug Abuse Patient Records regulations: The Federal rules restrict any use of the information to criminally investigate or prosecute any alcohol or drug abuse patient.[facility] SystemIn the event this information is protected by the Federal Confidentiality of Alcohol and Drug Abuse Patient Records regulations: The Federal rules restrict any use of the information to criminally investigate or prosecute any alcohol or drug abuse patient.[facility] SystemIn the event this information is protected by the Federal Confidentiality of Alcohol and Drug Abuse Patient Records regulations: The Federal rules restrict any use of the information to criminally investigate or prosecute any alcohol or drug abuse patient.[facility] SystemIn the event this information is protected by the Federal Confidentiality of Alcohol and Drug Abuse Patient Records regulations: The Federal rules restrict any use of the information to criminally investigate or prosecute any alcohol or drug abuse patient.[facility] SystemIn the event this information is protected by the Federal Confidentiality of Alcohol and Drug Abuse Patient Records regulations: The Federal rules restrict any use of the information to criminally investigate or prosecute any alcohol or drug abuse patient.[facility] SystemIn the event this information is protected by the Federal Confidentiality of Alcohol and Drug Abuse Patient Records regulations: The Federal rules restrict any use of the information to criminally investigate or prosecute any alcohol or drug abuse patient.[facility] SystemIn the event this information is protected by the Federal Confidentiality of Alcohol and Drug Abuse Patient Records regulations: The Federal rules restrict any use of the information to criminally investigate or prosecute any alcohol or drug abuse patient.[facility] SystemIn the event this information is protected by the Federal Confidentiality of Alcohol and Drug Abuse Patient Records regulations: The Federal rules restrict any use of the information to criminally investigate or prosecute any alcohol or drug abuse patient.[facility] SystemIn the event this information is protected by the Federal Confidentiality of Alcohol and Drug Abuse Patient Records regulations: The Federal rules restrict any use of the information to criminally investigate or prosecute any alcohol or drug abuse patient.[facility] SystemIn the event this information is protected by the Federal Confidentiality of Alcohol and Drug Abuse Patient Records regulations: The Federal rules restrict any use of the information to criminally investigate or prosecute any alcohol or drug abuse patient.[facility] SystemIn the event this information is protected by the Federal Confidentiality of Alcohol and Drug Abuse Patient Records regulations: The Federal rules restrict any use of the information to criminally investigate or prosecute any alcohol or drug abuse patient.[facility] SystemIn the event this information is protected by the Federal Confidentiality of Alcohol and Drug Abuse Patient Records regulations: The Federal rules restrict any use of the information to criminally investigate or prosecute any alcohol or drug abuse patient.[facility] SystemIn the event this information is protected by the Federal Confidentiality of Alcohol and Drug Abuse Patient Records regulations: The Federal rules restrict any use of the information to criminally investigate or prosecute any alcohol or drug abuse patient.[facility] SystemIn the event this information is protected by the Federal Confidentiality of Alcohol and Drug Abuse Patient Records regulations: The Federal rules restrict any use of the information to criminally investigate or prosecute any alcohol or drug abuse patient.[facility] SystemIn the event this information is protected by the Federal Confidentiality of Alcohol and Drug Abuse Patient Records regulations: The Federal rules restrict any use of the information to criminally investigate or prosecute any alcohol or drug abuse patient.[facility] SystemIn the event this information is protected by the Federal Confidentiality of Alcohol and Drug Abuse Patient Records regulations: The Federal rules restrict any use of the information to criminally investigate or prosecute any alcohol or drug abuse patient.[facility] SystemIn the event this information is protected by the Federal Confidentiality of Alcohol and Drug Abuse Patient Records regulations: The Federal rules restrict any use of the information to criminally investigate or prosecute any alcohol or drug abuse patient.[facility] SystemIn the event this information is protected by the Federal Confidentiality of Alcohol and Drug Abuse Patient Records regulations: The Federal rules restrict any use of the information to criminally investigate or prosecute any alcohol or drug abuse patient.[facility] SystemIn the event this information is protected by the Federal Confidentiality of Alcohol and Drug Abuse Patient Records regulations: The Federal rules restrict any use of the information to criminally investigate or prosecute any alcohol or drug abuse patient.[facility] SystemIn the event this information is protected by the Federal Confidentiality of Alcohol and Drug Abuse Patient Records regulations: The Federal rules restrict any use of the information to criminally investigate or prosecute any alcohol or drug abuse patient.[facility] SystemIn the event this information is protected by the Federal Confidentiality of Alcohol and Drug Abuse Patient Records regulations: The Federal rules restrict any use of the information to criminally investigate or prosecute any alcohol or drug abuse patient.[facility] SystemIn the event this information is protected by the Federal Confidentiality of Alcohol and Drug Abuse Patient Records regulations: The Federal rules restrict any use of the information to criminally investigate or prosecute any alcohol or drug abuse patient.[facility] SystemIn the event this information is protected by the Federal Confidentiality of Alcohol and Drug Abuse Patient Records regulations: The Federal rules restrict any use of the information to criminally investigate or prosecute any alcohol or drug abuse patient.[facility] SystemIn the event this information is protected by the Federal Confidentiality of Alcohol and Drug Abuse Patient Records regulations: The Federal rules restrict any use of the information to criminally investigate or prosecute any alcohol or drug abuse patient.[facility] SystemIn the event this information is protected by the Federal Confidentiality of Alcohol and Drug Abuse Patient Records regulations: The Federal rules restrict any use of the information to criminally investigate or prosecute any alcohol or drug abuse patient.[facility] SystemIn the event this information is protected by the Federal Confidentiality of Alcohol and Drug Abuse Patient Records regulations: The Federal rules restrict any use of the information to criminally investigate or prosecute any alcohol or drug abuse patient.[facility] SystemIn the event this information is protected by the Federal Confidentiality of Alcohol and Drug Abuse Patient Records regulations: The Federal rules restrict any use of the information to criminally investigate or prosecute any alcohol or drug abuse patient.[facility] SystemIn the event this information is protected by the Federal Confidentiality of Alcohol and Drug Abuse Patient Records regulations: The Federal rules restrict any use of the information to criminally investigate or prosecute any alcohol or drug abuse patient.[facility] SystemIn the event this information is protected by the Federal Confidentiality of Alcohol and Drug Abuse Patient Records regulations: The Federal rules restrict any use of the information to criminally investigate or prosecute any alcohol or drug abuse patient.[facility] SystemIn the event this information is protected by the Federal Confidentiality of Alcohol and Drug Abuse Patient Records regulations: The Federal rules restrict any use of the information to criminally investigate or prosecute any alcohol or drug abuse patient.[facility] SystemIn the event this information is protected by the Federal Confidentiality of Alcohol and Drug Abuse Patient Records regulations: The Federal rules restrict any use of the information to criminally investigate or prosecute any alcohol or drug abuse patient.[facility] SystemIn the event this information is protected by the Federal Confidentiality of Alcohol and Drug Abuse Patient Records regulations: The Federal rules restrict any use of the information to criminally investigate or prosecute any alcohol or drug abuse patient.[facility] SystemIn the event this information is protected by the Federal Confidentiality of Alcohol and Drug Abuse Patient Records regulations: The Federal rules restrict any use of the information to criminally investigate or prosecute any alcohol or drug abuse patient.[facility] SystemIn the event this information is protected by the Federal Confidentiality of Alcohol and Drug Abuse Patient Records regulations: The Federal rules restrict any use of the information to criminally investigate or prosecute any alcohol or drug abuse patient.[facility] SystemIn the event this information is protected by the Federal Confidentiality of Alcohol and Drug Abuse Patient Records regulations: The Federal rules restrict any use of the information to criminally investigate or prosecute any alcohol or drug abuse patient.[facility] SystemIn the event this information is protected by the Federal Confidentiality of Alcohol and Drug Abuse Patient Records regulations: The Federal rules restrict any use of the information to criminally investigate or prosecute any alcohol or drug abuse patient.[facility] SystemIn the event this information is protected by the Federal Confidentiality of Alcohol and Drug Abuse Patient Records regulations: The Federal rules restrict any use of the information to criminally investigate or prosecute any alcohol or drug abuse patient.[facility] SystemIn the event this information is protected by the Federal Confidentiality of Alcohol and Drug Abuse Patient Records regulations: The Federal rules restrict any use of the information to criminally investigate or prosecute any alcohol or drug abuse patient.[facility] SystemIn the event this information is protected by the Federal Confidentiality of Alcohol and Drug Abuse Patient Records regulations: The Federal rules restrict any use of the information to criminally investigate or prosecute any alcohol or drug abuse patient.[facility] SystemIn the event this information is protected by the Federal Confidentiality of Alcohol and Drug Abuse Patient Records regulations: The Federal rules restrict any use of the information to criminally investigate or prosecute any alcohol or drug abuse patient.[facility] SystemIn the event this information is protected by the Federal Confidentiality of Alcohol and Drug Abuse Patient Records regulations: The Federal rules restrict any use of the information to criminally investigate or prosecute any alcohol or drug abuse patient.[facility] SystemIn the event this information is protected by the Federal Confidentiality of Alcohol and Drug Abuse Patient Records regulations: The Federal rules restrict any use of the information to criminally investigate or prosecute any alcohol or drug abuse patient.[facility] SystemIn the event this information is protected by the Federal Confidentiality of Alcohol and Drug Abuse Patient Records regulations: The Federal rules restrict any use of the information to criminally investigate or prosecute any alcohol or drug abuse patient.[facility] SystemIn the event this information is protected by the Federal Confidentiality of Alcohol and Drug Abuse Patient Records regulations: The Federal rules restrict any use of the information to criminally investigate or prosecute any alcohol or drug abuse patient.[facility] SystemIn the event this information is protected by the Federal Confidentiality of Alcohol and Drug Abuse Patient Records regulations: The Federal rules restrict any use of the information to criminally investigate or prosecute any alcohol or drug abuse patient.[facility] SystemIn the event this information is protected by the Federal Confidentiality of Alcohol and Drug Abuse Patient Records regulations: The Federal rules restrict any use of the information to criminally investigate or prosecute any alcohol or drug abuse patient.[facility] SystemIn the event this information is protected by the Federal Confidentiality of Alcohol and Drug Abuse Patient Records regulations: The Federal rules restrict any use of the information to criminally investigate or prosecute any alcohol or drug abuse patient.[facility] SystemIn the event this information is protected by the Federal Confidentiality of Alcohol and Drug Abuse Patient Records regulations: The Federal rules restrict any use of the information to criminally investigate or prosecute any alcohol or drug abuse patient.[facility] SystemIn the event this information is protected by the Federal Confidentiality of Alcohol and Drug Abuse Patient Records regulations: The Federal rules restrict any use of the information to criminally investigate or prosecute any alcohol or drug abuse patient.[facility] SystemIn the event this information is protected by the Federal Confidentiality of Alcohol and Drug Abuse Patient Records regulations: The Federal rules restrict any use of the information to criminally investigate or prosecute any alcohol or drug abuse patient.[facility] SystemIn the event this information is protected by the Federal Confidentiality of Alcohol and Drug Abuse Patient Records regulations: The Federal rules restrict any use of the information to criminally investigate or prosecute any alcohol or drug abuse patient.[facility] SystemIn the event this information is protected by the Federal Confidentiality of Alcohol and Drug Abuse Patient Records regulations: The Federal rules restrict any use of the information to criminally investigate or prosecute any alcohol or drug abuse patient.[facility] SystemIn the event this information is protected by the Federal Confidentiality of Alcohol and Drug Abuse Patient Records regulations: The Federal rules restrict any use of the information to criminally investigate or prosecute any alcohol or drug abuse patient.[facility] SystemIn the event this information is protected by the Federal Confidentiality of Alcohol and Drug Abuse Patient Records regulations: The Federal rules restrict any use of the information to criminally investigate or prosecute any alcohol or drug abuse patient.[facility] SystemIn the event this information is protected by the Federal Confidentiality of Alcohol and Drug Abuse Patient Records regulations: The Federal rules restrict any use of the information to criminally investigate or prosecute any alcohol or drug abuse patient.[facility] SystemIn the event this information is protected by the Federal Confidentiality of Alcohol and Drug Abuse Patient Records regulations: The Federal rules restrict any use of the information to criminally investigate or prosecute any alcohol or drug abuse patient.[facility] SystemIn the event this information is protected by the Federal Confidentiality of Alcohol and Drug Abuse Patient Records regulations: The Federal rules restrict any use of the information to criminally investigate or prosecute any alcohol or drug abuse patient.[facility] SystemIn the event this information is protected by the Federal Confidentiality of Alcohol and Drug Abuse Patient Records regulations: The Federal rules restrict any use of the information to criminally investigate or prosecute any alcohol or drug abuse patient.[facility] SystemIn the event this information is protected by the Federal Confidentiality of Alcohol and Drug Abuse Patient Records regulations: The Federal rules restrict any use of the information to criminally investigate or prosecute any alcohol or drug abuse patient.[facility] SystemIn the event this information is protected by the Federal Confidentiality of Alcohol and Drug Abuse Patient Records regulations: The Federal rules restrict any use of the information to criminally investigate or prosecute any alcohol or drug abuse patient.[facility] SystemIn the event this information is protected by the Federal Confidentiality of Alcohol and Drug Abuse Patient Records regulations: The Federal rules restrict any use of the information to criminally investigate or prosecute any alcohol or drug abuse patient.[facility] SystemIn the event this information is protected by the Federal Confidentiality of Alcohol and Drug Abuse Patient Records regulations: The Federal rules restrict any use of the information to criminally investigate or prosecute any alcohol or drug abuse patient.[facility] SystemIn the event this information is protected by the Federal Confidentiality of Alcohol and Drug Abuse Patient Records regulations: The Federal rules restrict any use of the information to criminally investigate or prosecute any alcohol or drug abuse patient.[facility] SystemIn the event this information is protected by the Federal Confidentiality of Alcohol and Drug Abuse Patient Records regulations: The Federal rules restrict any use of the information to criminally investigate or prosecute any alcohol or drug abuse patient.[facility] SystemIn the event this information is protected by the Federal Confidentiality of Alcohol and Drug Abuse Patient Records regulations: The Federal rules restrict any use of the information to criminally investigate or prosecute any alcohol or drug abuse patient.[facility] SystemIn the event this information is protected by the Federal Confidentiality of Alcohol and Drug Abuse Patient Records regulations: The Federal rules restrict any use of the information to criminally investigate or prosecute any alcohol or drug abuse patient.[facility] SystemIn the event this information is protected by the Federal Confidentiality of Alcohol and Drug Abuse Patient Records regulations: The Federal rules restrict any use of the information to criminally investigate or prosecute any alcohol or drug abuse patient.[facility] SystemIn the event this information is protected by the Federal Confidentiality of Alcohol and Drug Abuse Patient Records regulations: The Federal rules restrict any use of the information to criminally investigate or prosecute any alcohol or drug abuse patient.[facility] SystemIn the event this information is protected by the Federal Confidentiality of Alcohol and Drug Abuse Patient Records regulations: The Federal rules restrict any use of the information to criminally investigate or prosecute any alcohol or drug abuse patient.[facility] SystemIn the event this information is protected by the Federal Confidentiality of Alcohol and Drug Abuse Patient Records regulations: The Federal rules restrict any use of the information to criminally investigate or prosecute any alcohol or drug abuse patient.[facility] SystemIn the event this information is protected by the Federal Confidentiality of Alcohol and Drug Abuse Patient Records regulations: The Federal rules restrict any use of the information to criminally investigate or prosecute any alcohol or drug abuse patient.[facility] SystemIn the event this information is protected by the Federal Confidentiality of Alcohol and Drug Abuse Patient Records regulations: The Federal rules restrict any use of the information to criminally investigate or prosecute any alcohol or drug abuse patient.[facility] SystemIn the event this information is protected by the Federal Confidentiality of Alcohol and Drug Abuse Patient Records regulations: The Federal rules restrict any use of the information to criminally investigate or prosecute any alcohol or drug abuse patient.[facility] Reason for Visit (unrecogniz ed section and content) Reason Comments Ear Problem follow upright ear a nd nose bleeds Specialty Diagnoses / Procedures Referred By Contact Referred To Contact Ent - Otolaryngology / ENT-OTOLARYNGOLOGY Diagnoses 6 mo follow up Procedures BD WHOLE BODY COMPOSITION UNLISTED CHEMISTRY TEST CLINIC VISIT NO CHARGE EST PATIENT VISIT LEVEL 5 EST HNI PATIENT Flash Pearl MD [address] [place] [address] [place] [address] [place] [address] Referral ID Status Reason Start Date Expiration Date Visits Re quested Visits Authorized [id number] Closed 07/09/2021 07/27/2021 99 99 Specialty Diagnoses [...] RETACRIT NON-ESRD USE (RETACRIT) Asher Hummel MD [address] [place] [address] [place] [address] [address] Treat [address] [place] [address] Referral ID Status Reason Start Date Expiration Date V isits Requested Visits Authorized [id number] Authorized 08/06/2021 02/01/2022 37 37 Reason Comments myeldysplastic syndrome followup Specialty Diagnoses / Procedures Referred By Contac t Referred To Contact Diagnoses Myelodysplastic syndrome (HCC) Procedures AZACITIDINE INJECTION PALONOSETRON HCL Asher Hummel MD [address] [place] [address] [place] [address] Sam Treat [address] [place] [address] Referral ID Status Reason Start Date Expiration Date V isits Requested Visits Authorized [id number] Authorized 06/28/2021 07/27/2022 99 99 Reason Comments [...] Expiration Date V isits Requested Visits Authorized [id number] Waiting for Response 08/06/2021 02/01/2022 37 37 Reason Comments Transfusion Reason Comments Care Coordination Results Reason Comments Care Coordination Lab results Referral ID Status Reason Start Date Expiration Date V isits Requested Visits Authorized [id number] Authorized 02/25/2022 04/25/2022 42 42 Reason Comments Results Reason Comments Care Coordination Referral Reason Comments Care Coordination Appointment Reason Comments Results CBC Reason Comments Patient Update Reason Comments Consult Specialty Diagnoses / Procedures Referred By Contac t Referred To Contact Diagnoses Myelodysplastic syndrome (HCC) Procedures CONSULT TO HEMATOLOGY/ONCOLOGY OFFICE/OUTPATIENT [facility] MDM 60-74 MINUTES Asher Hmumel MD [address] [place] [address] Referral ID Status Reason Start Date Expiration Date V isits Requested Visits Authorized [id number] Closed PCP Requested Referral 03/15/2022 03/15/2023 1 [...] NON-ESRD USE (RETACRIT) Asher Hummel MD [address] [place] [address] Sam Treat [facility] [address] [address] Referral ID Status Reason Start Date Expiration Date V isits Requested Visits Authorized [id number] Authorized 04/29/2022 06/27/2022 99 99 Reason Comments Myelodysplastic Syndrome 1 week follow u p Reason Comments Care Coordination Treatment Planning Reason Comments Care Coordination Antiemetics Reason Comments Care Coordination C1D1 Post Treatment Call Reason Comments MDS Follow up Reason Comments Prostate Cancer Followup Referral ID Status Reason Start Date Expiration Date V isits Requested Visits Authorized [id number] Authorized 04/29/2022 06/27/2022 15 15 Reason Comments Critical Results Referral ID Status Reason Start Date Expiration Date V isits Requested Visits Authorized [id number] Authorized 04/29/2022 06/27/2022 19 19 Reason Comments MDS 1 week follow up Referral ID Status Reason Start Date Expiration Date V isits Requested Visits Authorized [id number] Authorized 04/29/2022 12/24/2022 45 45 Reason Comments Care Coordination Oxygen Question Reason Comments Established Patient Reason Comments Retacrit Injection Reason Comments MDS OTV 1 week Reason Comments Care Coordination Order Request Reason Comments Care Coordination Transfusion Question Reason Comments Treatment Planning Reason Comments Care Coordination Medication Authoriza tion Referral ID Status Reason Start Date Expiration Date Visits Re quested Visits Authorized [id number] Closed 04/29/2022 12/24/2022 45 45 Reason Comments mds Treatment visit Reason Comments Care Coordination CBC Results; Transfu bravo Reason Comments Care Coordination Transfusion Orders Reason Comments Care Coordination Pt Update Reason Comments Care Coordination Hospice/Treatment Up date Reason Comments MDS (myelodysplastic syndrome) 3 week fo llow up Reason Comments Refill Request Reason Comments Epistaxis Last one was a week ago. Nasal packing taken out last . Reason Comments Follow Up Care Teams (unrecognized sec tion and content) Bruise Trimmer Relationship Specialty Start Date End Date Flash Pearl MD [address] [place] [address] PCP - General 11/12/00 Sheng Gomez MD [address] [place], [place] [id number] Facilities Maintenance Manager Cardiology 09/20/20 Asher Hmumel MD [address] [place] [address] Physician Hematology/Oncology 06/29/21 Wilfred Martinez APRN.[employer]ER [address] [address] Nurse Practitioner Hematology/Oncology 06/29/21 Angle Kamara, MONET [address] [address] Specialty Welding Tester Hematology/Oncology 06/29/21 Bruise Trimmer Relationship Specialty Start Date End Date Flash Pearl MD [address] [place] [address] PCP - General 11/12/00 Sheng Gomez MD [address] [place] [address] Facilities Maintenance Manager Cardiology 09/20/20 Asher Hummel MD [address] [place] [address] Physician Hematology/Oncology 06/29/21 Wilfred Martinez, DREDGE MATE.[employer] [address] [address] Nurse Practitioner Hematology/Oncology 06/29/21 Angle Kamara, MONET [address] [place] [address] Specialty Welding Tester Hematology/Oncology 06/29/21 Bruise Trimmer Relationship Specialty Start Date End Date Flash Pearl MD [address] [place] [address] PCP - General 11/12/00 Sheng Gomez MD [address] [place] [address] Facilities Maintenance Manager Cardiology 09/20/20 Asher Hummel MD [address] [place] [address] Physician Hematology/Oncology 06/29/21 Wilfred Martinez, DREDGE MATE.[facility] [address] [place] [address] Nurse Practitioner Hematology/Oncology 06/29/21 Angle Kamara, MONET [address] [place] [address] Specialty Welding Tester Hematology/Oncology 06/29/21 Bruise Trimmer Relationship Specialty Start Date End Date Flash Pearl MD [address] [place] [address] PCP - General 11/12/00 Sheng Gomez MD [address] [place] [address] Facilities Maintenance Manager Cardiology 09/20/20 Asher Hummel MD [address] [place] [address] Physician Hematology/Oncology 06/29/21 Wilfred Martinez, DREDGE MATE.[employer] WE[employer]ER [address] [place] [address] Nurse Practitioner Hematology/Oncology 06/29/21 Angle Kamara, MONET [address] [address] Specialty Welding Tester Hematology/Oncology 06/29/21 Bruise Trimmer Relationship Specialty Start Date End Date Flash Pearl MD [address] [place] [address] PCP - General 11/12/00 Sheng Gomez MD [address] [place] [address] Facilities Maintenance Manager Cardiology 09/20/20 Asher Hummel MD [address] [place] [address] Physician Hematology/Oncology 06/29/21 Wilfred Martinez, DREDGE MATE.[employer]ER [address] [place] [address] Nurse Practitioner Hematology/Oncology 06/29/21 Angle Kamara, RN [address] [place] [address] Specialty Welding Tester Hematology/Oncology 06/29/21 Bruise Trimmer Relationship Specialty Start Date End Date Flash Pearl MD [address] [place] [address] PCP - General 11/12/00 Sheng Gomez MD [address] [place] [address] Facilities Maintenance Manager Cardiology 09/20/20 Asher Hummel MD [address] [place] [address] Physician Hematology/Oncology 06/29/21 Wilfred Martinez, DREDGE MATE.[employer] [address] [place] [address] Nurse Practitioner Hematology/Oncology 06/29/21 Angle Kamara, MONET [address] [place] [address] Specialty Welding Tester Hematology/Oncology 06/29/21 Bruise Trimmer Relationship Specialty Start Date End Date Flash Pearl MD [address] [place] [address] PCP - General 11/12/00 Sheng Gomez MD [address] [place] [address] Facilities Maintenance Manager Cardiology 09/20/20 Asher Hummel MD [address] [place] [address] Physician Hematology/Oncology 06/29/21 Wilfred Martinez, DREDGE MATE.[employer] [address] [place] [address] Nurse Practitioner Hematology/Oncology 06/29/21 Angle Kamara, RN [address] [place] [address] Specialty Welding Tester Hematology/Oncology 06/29/21 Bruise Trimmer Relationship Specialty Start Date End Date Flash Pearl MD [address] [place] [address] PCP - General 11/12/00 Sheng Gomez MD [address] [place] [address] Facilities Maintenance Manager Cardiology 09/20/20 Asher Hummel MD [address] [place] [address] Physician Hematology/Oncology 06/29/21 Wilfred Martinez, DREDGE MATE.[employer] [address] [address] Nurse Practitioner Hematology/Oncology 06/29/21 Angle Kamara, MONET [address] [place] [address] Specialty Welding Tester Hematology/Oncology 06/29/21 Bruise Trimmer Relationship Specialty Start Date End Date Flash Pearl MD [address] [place] [address] PCP - General 11/12/00 Sheng Gomez MD [address] [place] [address] Facilities Maintenance Manager Cardiology 09/20/20 Asher Hummel MD [address] [place] [address] Physician Hematology/Oncology 06/29/21 Wilfred Martinez, DREDGE MATE.[employer] [address] [place] [address] Nurse Practitioner Hematology/Oncology 06/29/21 Angle Kamara, MONET [address] [place] [address] Specialty Welding Tester Hematology/Oncology 06/29/21 Bruise Trimmer Relationship Specialty Start Date End Date Flash Pearl MD [address] [place] [address] PCP - General 11/12/00 Sheng Gomez MD [address] [place] [address] Facilities Maintenance Manager Cardiology 09/20/20 Asher Hummel MD [address] [place] [address] Physician Hematology/Oncology 06/29/21 Wilfred Martinez, DREDGE MATE.[employer] [address] [place] [address] Nurse Practitioner Hematology/Oncology 06/29/21 Angle Kamara RN [address] [place] [address] Specialty Welding Tester Hematology/Oncology 06/29/21 Bruise Trimmer Relationship Specialty Start Date End Date Flash Pearl MD [address] [place] [address] PCP - General 11/12/00 Sheng Gomez MD [address] [place] [address] Facilities Maintenance Manager Cardiology 09/20/20 Asher Hummel MD [address] [place] [address] Physician Hematology/Oncology 06/29/21 Wilfred Martinez, DREDGE MATE.[employer]ER [address] [place] [address] Nurse Practitioner Hematology/Oncology 06/29/21 Angle Kamara, MONET [address] [place] [address] Specialty Welding Tester Hematology/Oncology 06/29/21 Bruise Trimmer Relationship Specialty Start Date End Date Flash Pearl MD [address] [place] [address] PCP - General 11/12/00 Sheng Gomez MD [address] [place] [address] Facilities Maintenance Manager Cardiology 09/20/20 Asher Hummel MD [address] [place] [address] Physician Hematology/Oncology 06/29/21 Wilfred Martinez, DREDGE MATE.[employer]ING[employer]ER [address] [place] [address] Nurse Practitioner Hematology/Oncology 06/29/21 Angle Kamara, MONET [address] [place] [address] Specialty Welding Tester Hematology/Oncology 06/29/21 Bruise Trimmer Relationship Specialty Start Date End Date Flash Pearl MD [address] [place] [address] PCP - General 11/12/00 Sheng Gomez MD [address] [place] [address] Facilities Maintenance Manager Cardiology 09/20/20 Asher Hummel MD [address] [place] [address] Physician Hematology/Oncology 06/29/21 Wilfred Martinez, DREDGE MATE.[employer]ING[employer]ER [address] [place] [address] Nurse Practitioner Hematology/Oncology 06/29/21 Angle Kamara, RN [address] [place] [address] Specialty Welding Tester Hematology/Oncology 06/29/21 Bruise Trimmer Relationship Specialty Start Date End Date Flash Pearl MD [address] [place] [address] PCP - General 11/12/00 Sheng Gomez MD [address] [place] [address] Facilities Maintenance Manager Cardiology 09/20/20 Asher Hummel MD [address] [place] [address] Physician Hematology/Oncology 06/29/21 Wilfred Martinez, DREDGE MATE.[employer]ING[employer] WE[employer]ER [address] [address] Nurse Practitioner Hematology/Oncology 06/29/21 Angle Kamara, MONET [address] [place] [address] Specialty Welding Tester Hematology/Oncology 06/29/21 Bruise Trimmer Relationship Specialty Start Date End Date Flash Pearl MD [address] [place] [address] PCP - General 11/12/00 Sheng Gomez MD [address] [place] [address] Facilities Maintenance Manager Cardiology 09/20/20 Asher Hummel MD [address] [place] [address] Physician Hematology/Oncology 06/29/21 Wilfred Martinez, DREDGE MATE.FRINGE WEAVER [address] [place] [address] [place] [address] Nurse Practitioner Hematology/Oncology 06/29/21 Angle Kamara, MONET [address] [place] [address] Specialty Welding Tester Hematology/Oncology 06/29/21 Bruise Trimmer Relationship Specialty Start Date End Date Flash Pearl MD [address] [place] [address] PCP - General 11/12/00 Sheng Gomez MD [address] [place] [address] Facilities Maintenance Manager Cardiology 09/20/20 Asher Hummel MD [address] [place] [address] Physician Hematology/Oncology 06/29/21 Wilfred Martinez, DREDGE MATE.[facility] [address] [address] Nurse Practitioner Hematology/Oncology 06/29/21 Angle Kamara, MONET [address] [place] [address] Specialty Welding Tester Hematology/Oncology 06/29/21 Bruise Trimmer Relationship Specialty Start Date End Date Flash Pearl MD [address] [place] [address] PCP - General 11/12/00 Sheng Gomez MD [address] [place] [address] Facilities Maintenance Manager Cardiology 09/20/20 Asher Hummel MD [address] [place], [place] [address] Physician Hematology/Oncology 06/29/21 Wilfred Martinez, DREDGE MATE.[employer]ING[employer] WE[employer]ER [address] [place] [address] Nurse Practitioner Hematology/Oncology 06/29/21 Angle Kamara, RN [address] [place] [address] Specialty Welding Tester Hematology/Oncology 06/29/21 Bruise Trimmer Relationship Specialty Start Date End Date Flash Pearl MD [address] [place] [address] PCP - General 11/12/00 Sheng Gomez MD [address] [place] [address] Facilities Maintenance Manager Cardiology 09/20/20 Asher Hummel MD [address] [place] [address] Physician Hematology/Oncology 06/29/21 Wilfred Martinez, DREDGE MATE.[employer] [address] [place] [address] Nurse Practitioner Hematology/Oncology 06/29/21 Angle Kamara, RN [address] [place] [address] Specialty Welding Tester Hematology/Oncology 06/29/21 Bruise Trimmer Relationship Specialty Start Date End Date Flash Pearl MD [address] [place] [address] PCP - General 11/12/00 Sheng Gomez MD [address] [place] [address] Facilities Maintenance Manager Cardiology 09/20/20 Asher Hummel MD [address] [place] [address] Physician Hematology/Oncology 06/29/21 Wilfred Martinez, DREDGE MATE.[employer]ING[employer] WE[employer]ER [address] [place] [address] Nurse Practitioner Hematology/Oncology 06/29/21 Angle Kamara, MONET [address] [place] [address] Specialty Welding Tester Hematology/Oncology 06/29/21 Bruise Trimmer Relationship Specialty Start Date End Date Flash Pearl MD [address] [place] [address] PCP - General 11/12/00 Sheng Gomez MD [address] [place] [address] Facilities Maintenance Manager Cardiology 09/20/20 Asher Hummel MD [address] [place] [address] Physician Hematology/Oncology 06/29/21 Wilfred Martinez, DREDGE MATE.[employer]INGE WEAVER [address] [place] [address] Nurse Practitioner Hematology/Oncology 06/29/21 Angle Kamara, RN [address] [place] [address] Specialty Welding Tester Hematology/Oncology 06/29/21 Bruise Trimmer Relationship Specialty Start Date End Date Flash Pearl MD [address] [place] [address] PCP - General 11/12/00 Sheng Gomez MD [address] [place] [address] Facilities Maintenance Manager Cardiology 09/20/20 Asher Hummel MD [address] [place] [address] Physician Hematology/Oncology 06/29/21 Wilfred Martinez, DREDGE MATE.[employer]INGE WEAVER [address] [place] [address] Nurse Practitioner Hematology/Oncology 06/29/21 Angle Kamara, RN [address] [place] [address] Specialty Welding Tester Hematology/Oncology 06/29/21 Bruise Trimmer Relationship Specialty Start Date End Date Flash Pearl MD [address] [place] [address] PCP - General 11/12/00 Sheng Gomez MD [address] [place] [address] Facilities Maintenance Manager Cardiology 09/20/20 Asher Hummel MD [address] [place] [address] Physician Hematology/Oncology 06/29/21 Wilfred Martinez, DREDGE MATE.[employer]INGE WEAVER [address] [place] [address] Nurse Practitioner Hematology/Oncology 06/29/21 Angle Kamara, RN [address] [place] [address] Specialty Welding Tester Hematology/Oncology 06/29/21 Bruise Trimmer Relationship Specialty Start Date End Date Flash eParl MD [address] [place] [address] PCP - General 11/12/00 Sheng Gomez MD [address] [place] [address] Facilities Maintenance Manager Cardiology 09/20/20 Asher Hummel MD [address] [place] [address] Physician Hematology/Oncology 06/29/21 Wilfred Martinez, DREDGE MATE.[employer]ING[employer] WEAVER [address] [place] [address] Nurse Practitioner Hematology/Oncology 06/29/21 Angle Kamara, MONET [address] [place] [address] Specialty Welding Tester Hematology/Oncology 06/29/21 Bruise Trimmer Relationship Specialty Start Date End Date Flash Pearl MD [address] [place] [address] PCP - General 11/12/00 Sheng Gomez MD [address] [place] [address] Facilities Maintenance Manager Cardiology 09/20/20 Asher Hummel MD [address] [place] [address] Physician Hematology/Oncology 06/29/21 Wilfred Martinez, DREDGE MATE.[employer]INGE WEAVER [address] [place] [address] Nurse Practitioner Hematology/Oncology 06/29/21 Angle Kamara, MONET [address] [place] [address] Specialty Welding Tester Hematology/Oncology 06/29/21 Bruise Trimmer Relationship Specialty Start Date End Date Flash Pearl MD [address] [place] [address] PCP - General 11/12/00 Sheng Gomez MD [address] [place] [address] Facilities Maintenance Manager Cardiology 09/20/20 Asher Hummel MD [address] [place] [address] Physician Hematology/Oncology 06/29/21 Wilfred Martinez, DREDGE MATE.[employer]INGE WEAVER [address] [place] [address] Nurse Practitioner Hematology/Oncology 06/29/21 Angle Kamara, MONET [address] [place] [address] Specialty Welding Tester Hematology/Oncology 06/29/21 Bruise Trimmer Relationship Specialty Start Date End Date Flash Pearl MD [address] [place] [address] PCP - General 11/12/00 Sheng Gomez MD [address] [place] [address] Facilities Maintenance Manager Cardiology 09/20/20 Asher Hummel MD [address] [place] [address] Physician Hematology/Oncology 06/29/21 Wilfred Martinez, DREDGE MATE.[employer]INGE WEAVER [address] [place] [address] Nurse Practitioner Hematology/Oncology 06/29/21 Angle Kamara, MONET [address] [place] [address] Specialty Welding Tester Hematology/Oncology 06/29/21 Bruise Trimmer Relationship Specialty Start Date End Date Flash Pearl MD [address] [place] [address] PCP - General 11/12/00 Sheng Gomez MD [address] [place] [address] Facilities Maintenance Manager Cardiology 09/20/20 Asher Hummel MD [address] [place] [address] Physician Hematology/Oncology 06/29/21 Wilfred Martinez, DREDGE MATE.[employer]INGE WEAVER [address] [place] [address] Nurse Practitioner Hematology/Oncology 06/29/21 Angle Kamara, MONET [address] [place] [address] Specialty Welding Tester Hematology/Oncology 06/29/21 Bruise Trimmer Relationship Specialty Start Date End Date Flash Pearl MD [address] [place] [address] PCP - General 11/12/00 Sheng Gomez MD [address] [place] [address] Facilities Maintenance Manager Cardiology 09/20/20 Asher Hummel MD [address] [place] [address] Physician Hematology/Oncology 06/29/21 Wilfred Martinez, DREDGE MATE.[employer]INGE WEAVER [address] [place] [address] Nurse Practitioner Hematology/Oncology 06/29/21 Angle Kamara, MONET [address] [place] [address] Specialty Welding Tester Hematology/Oncology 06/29/21 Bruise Trimmer Relationship Specialty Start Date End Date Flash Pearl MD [address] [place] [address] PCP - General 11/12/00 Sheng Gomez MD [address] [place] [address] Facilities Maintenance Manager Cardiology 09/20/20 Asher Hummel MD [address] [place] [address] Physician Hematology/Oncology 06/29/21 Wilfred Martinez, DREDGE MATE.[employer]INGE WEAVER [address] [place] [address] Nurse Practitioner Hematology/Oncology 06/29/21 Angle Kamara, MONET [address] [place] [address] Specialty Welding Tester Hematology/Oncology 06/29/21 Bruise Trimmer Relationship Specialty Start Date End Date Flash Pearl MD [address] [place] [address] PCP - General 11/12/00 Sheng Gomez MD [address] [place] [address] Facilities Maintenance Manager Cardiology 09/20/20 Asher Hummel MD [address] [place] [address] Physician Hematology/Oncology 06/29/21 Wilfred Martinez, DREDGE MATE.[employer]INGE WEAVER [address] [place] [address] Nurse Practitioner Hematology/Oncology 06/29/21 Angle Kamara, MONET [address] [place] [address] Specialty Welding Tester Hematology/Oncology 06/29/21 Bruise Trimmer Relationship Specialty Start Date End Date Flash Pearl MD [address] [place] [address] PCP - General 11/12/00 Sheng Gomez MD [address] [place] [address] Facilities Maintenance Manager Cardiology 09/20/20 Asher Hummel MD [address] [place] [address] Physician Hematology/Oncology 06/29/21 Wilfred Martinez, DREDGE MATE.[employer]INGE WEAVER [address] [place] [address] Nurse Practitioner Hematology/Oncology 06/29/21 Angle Kamara, MONET [address] [place] [address] Specialty Welding Tester Hematology/Oncology 06/29/21 Bruise Trimmer Relationship Specialty Start Date End Date Flash Pearl MD [address] [place] [address] PCP - General 11/12/00 Sheng Gomez MD [address] [place] [address] Facilities Maintenance Manager Cardiology 09/20/20 Asher Hummel MD [address] [address] Physician Hematology/Oncology 06/29/21 Wilfred Martinez, DREDGE MATE.FRINGE WEAVER [address] [place] [address] Nurse Practitioner Hematology/Oncology 06/29/21 Angle Kamara, MONET [address] [place] [address] Specialty Welding Tester Hematology/Oncology 06/29/21 Bruise Trimmer Relationship Specialty Start Date End Date Flash Pearl MD [address] [place] [address] PCP - General 11/12/00 Sheng Gomez MD [address] [place] [address] Facilities Maintenance Manager Cardiology 09/20/20 Asher Hummel MD [address] [place] [address] Physician Hematology/Oncology 06/29/21 Wilfred Martinez, DREDGE MATE.FRINGE WEAVER [address] [place] [address] Nurse Practitioner Hematology/Oncology 06/29/21 Angle Kamara, MONET [address] [place] [address] Specialty Welding Tester Hematology/Oncology 06/29/21 Bruise Trimmer Relationship Specialty Start Date End Date Flash Pearl MD [address] [place] [address] PCP - General 11/12/00 Sheng Gomez MD [address] [place] [address] Facilities Maintenance Manager Cardiology 09/20/20 Asher Hummel MD [address] [place] [address] Physician Hematology/Oncology 06/29/21 Wilfred Martinez, DREDGE MATE.[employer]INGE WEAVER [address] [place] [address] Nurse Practitioner Hematology/Oncology 06/29/21 Angle Kamara, RN [address] [place] [address] Specialty Welding Tester Hematology/Oncology 06/29/21 Bruise Trimmer Relationship Specialty Start Date End Date Flash Pearl MD [address] [place] [id number] PCP - General 11/12/00 Sheng Gomez MD [address] [place] [address] Facilities Maintenance Manager Cardiology 09/20/20 Asher Hummel MD [address] [place] [address] Physician Hematology/Oncology 06/29/21 Wilfred Martinez, DREDGE MATE.[employer]INGE WEAVER [address] [facility] [place] [address] Nurse Practitioner Hematology/Oncology 06/29/21 Angle Kamara, RN [address] [place] [address] Specialty Welding Tester Hematology/Oncology 06/29/21 Bruise Trimmer Relationship Specialty Start Date End Date Flash Pearl MD [address] [place] [address] PCP - General 11/12/00 Sheng Gomez MD [address] [place] [address] Facilities Maintenance Manager Cardiology 09/20/20 Asher Hummel MD [address] [place] [address] Physician Hematology/Oncology 06/29/21 Wilfred Martinez, DREDGE MATE.[employer]INGE WEAVER [address] [place] [address] Nurse Practitioner Hematology/Oncology 06/29/21 Angle Kamara, RN [address] [place] [address] Specialty Welding Tester Hematology/Oncology 06/29/21 Bruise Trimmer Relationship Specialty Start Date End Date Flash Pearl MD [address] [place] [address] PCP - General 11/12/00 Sheng Gomez MD [address] [place] [address] Facilities Maintenance Manager Cardiology 09/20/20 Asher Hummel MD [address] [address] Physician Hematology/Oncology 06/29/21 Wilfred Martinez, DREDGE MATE.FRINGE WEAVER [address] [facility] [address] [place] [address] Nurse Practitioner Hematology/Oncology 06/29/21 Angle Kamara, RN [address] [place] [address] Specialty Welding Tester Hematology/Oncology 06/29/21 Bruise Trimmer Relationship Specialty Start Date End Date Flash Pearl MD [address] [place] [address] PCP - General 11/12/00 Sheng Gomez MD [address] [place] [address] Facilities Maintenance Manager Cardiology 09/20/20 Asher Hummel MD [address] [place] [address] Physician Hematology/Oncology 06/29/21 Wilfred Martinez, DREDGE MATE.FRINGE WEAVER [address] [place] [address] Nurse Practitioner Hematology/Oncology 06/29/21 Angle Kamara, MONET [address] [place] [address] Specialty Welding Tester Hematology/Oncology 06/29/21 Bruise Trimmer Relationship Specialty Start Date End Date Flash Pearl MD [address] [place] [address] PCP - General 11/12/00 Sheng Gomez MD [address] [place] [address] Facilities Maintenance Manager Cardiology 09/20/20 Asher Hummel MD [address] [place] [address] Physician Hematology/Oncology 06/29/21 Wilfred Martinez, DREDGE MATE.FRINGE WEAVER [address] [place] [address] Nurse Practitioner Hematology/Oncology 06/29/21 Angle Kamara, MONET [address] [place] [address] Specialty Welding Tester Hematology/Oncology 06/29/21 Bruise Trimmer Relationship Specialty Start Date End Date Flash Pearl MD [address] [place] [address] PCP - General 11/12/00 Sheng Gomez MD [address] [place] [address] Facilities Maintenance Manager Cardiology 09/20/20 Asher Hummel MD [address] [place] [address] Physician Hematology/Oncology 06/29/21 Wilfred Martinez, DREDGE MATE.FRINGE WEAVER [address] [place] [address] Nurse Practitioner Hematology/Oncology 06/29/21 Angle Kamara, RN [address] [place] [address] Specialty Welding Tester Hematology/Oncology 06/29/21 Bruise Trimmer Relationship Specialty Start Date End Date Flash Pearl MD [address] [place] [address] PCP - General 11/12/00 Sheng Gomez MD [address] [place] [address] Facilities Maintenance Manager Cardiology 09/20/20 Asher Hummel MD [address] [place] [address] Physician Hematology/Oncology 06/29/21 Wilfred Martinez, DREDGE MATE.FRINGE WEAVER [address] [place] [address] Nurse Practitioner Hematology/Oncology 06/29/21 Angle Kamara, MONET [address] [place] [address] Specialty Welding Tester Hematology/Oncology 06/29/21 Bruise Trimmer Relationship Specialty Start Date End Date Flash Pearl MD [address] [place] [address] PCP - General 11/12/00 Sheng Gomez MD [address] [place] [address] Facilities Maintenance Manager Cardiology 09/20/20 Asher Hummel MD [address] [place] [address] Physician Hematology/Oncology 06/29/21 Wilfred Martinez, DREDGE MATE.FRINGE WEAVER [address] [address] Nurse Practitioner Hematology/Oncology 06/29/21 Angle Kamara, MONET [address] [place] [address] Specialty Welding Tester Hematology/Oncology 06/29/21 Bruise Trimmer Relationship Specialty Start Date End Date Flash Pearl MD [address] [place] [address] PCP - General 11/12/00 Sheng Gomez MD [address] [place] [address] Facilities Maintenance Manager Cardiology 09/20/20 Asher Hummel MD [address] [place] [address] Physician Hematology/Oncology 06/29/21 Wilfred Martinez, DREDGE MATE.FRINGE WEAVER [address] [place] [address] Nurse Practitioner Hematology/Oncology 06/29/21 Angle Kamara, MONET [address] [place] [address] Specialty Welding Tester Hematology/Oncology 06/29/21 Bruise Trimmer Relationship Specialty Start Date End Date Flash Pearl MD [address] [place] [address] PCP - General 11/12/00 Sheng Gomez MD [address] [place] [address] Facilities Maintenance Manager Cardiology 09/20/20 Asher Hummel MD [address] [place] [address] Physician Hematology/Oncology 06/29/21 Wilfred Martinez, JIGAR.FRINGE WEAVER [address] [place] [address] Nurse Practitioner Hematology/Oncology 06/29/21 Angle Kamara, RN [address] [place] [address] Specialty Welding Tester Hematology/Oncology 06/29/21 Bruise Trimmer Relationship Specialty Start Date End Date Flash Pearl MD [address] [place] [address] PCP - General 11/12/00 Sheng Gomez MD [address] [place] [address] Facilities Maintenance Manager Cardiology 09/20/20 Asher Hummel MD [address] [place] [address] Physician Hematology/Oncology 06/29/21 Wilfred Martinez, DREDGE MATE.FRINGE WEAVER [address] [place] [address] Nurse Practitioner Hematology/Oncology 06/29/21 Angle Kamara, MONET [address] [place] [address] Specialty Welding Tester Hematology/Oncology 06/29/21 Bruise Trimmer Relationship Specialty Start Date End Date Flash Pearl MD [address] [place] [address] PCP - General 11/12/00 Sheng Gomez MD [address] [place] [address] Facilities Maintenance Manager Cardiology 09/20/20 Asher Hummel MD [address] [place] [address] Physician Hematology/Oncology 06/29/21 Wilfred Martinez, DREDGE MATE.FRINGE WEAVER [address] [place] [address] Nurse Practitioner Hematology/Oncology 06/29/21 Angle Kamara, MONET [address] [place] [address] Specialty Welding Tester Hematology/Oncology 06/29/21 Bruise Trimmer Relationship Specialty Start Date End Date Flash Pearl MD [address] [place] [address] PCP - General 11/12/00 Sheng Gomez MD [address] [place] [address] Facilities Maintenance Manager Cardiology 09/20/20 Asher Hummel MD [address] [place] [address] Physician Hematology/Oncology 06/29/21 Wilfred Martinez, DREDGE MATE.FRINGE WEAVER [address] [place] [address] Nurse Practitioner Hematology/Oncology 06/29/21 Angle Kamara, MONET [address] [place] [address] Specialty Welding Tester Hematology/Oncology 06/29/21 Bruise Trimmer Relationship Specialty Start Date End Date Flash Pearl MD [address] [place] [address] PCP - General 11/12/00 Sheng Gomez MD [address] [place] [address] Facilities Maintenance Manager Cardiology 09/20/20 Asher Hummel MD [address] [place] [address] Physician Hematology/Oncology 06/29/21 Wilfred Martinez, DREDGE MATE.FRINGE WEAVER [address] [address] Nurse Practitioner Hematology/Oncology 06/29/21 Angle Kamara, RN [address] [place] [address] Specialty Welding Tester Hematology/Oncology 06/29/21 Bruise Trimmer Relationship Specialty Start Date End Date Flash Pearl MD [address] [place] [address] PCP - General 11/12/00 Sheng Gomez MD [address] [place] [address] Facilities Maintenance Manager Cardiology 09/20/20 Asher Hummel MD [address] [place] [address] Physician Hematology/Oncology 06/29/21 Wilfred Martinez, DREDGE MATE.FRINGE WEAVER [address] [place] [address] Nurse Practitioner Hematology/Oncology 06/29/21 Angle Kamara, MONET [address] [place] [address] Specialty Welding Tester Hematology/Oncology 06/29/21 Bruise Trimmer Relationship Specialty Start Date End Date Flash Pearl MD [address] [place] [address] PCP - General 11/12/00 Sheng Gomez MD [address] [place] [address] Facilities Maintenance Manager Cardiology 09/20/20 Asher Hummel MD [address] [place] [address] Physician Hematology/Oncology 06/29/21 Wilfred Martinez, DREDGE MATE.FRINGE WEAVER [address] [place] [address] Nurse Practitioner Hematology/Oncology 06/29/21 Angle Kamara, RN [address] [place] [address] Specialty Welding Tester Hematology/Oncology 06/29/21 [facility] It Architecture Analyst 11/17/22 Bruise Trimmer Relationship Specialty Start Date End Date Flash Pearl MD [address] [place] [address] PCP - General 11/12/00 Sheng Gomez MD [address] [place] [address] Facilities Maintenance Manager Cardiology 09/20/20 Asher Hummel MD [address] [place] [address] Physician Hematology/Oncology 06/29/21 Wilfred Martinez, DREDGE MATE.FRINGE WEAVER [address] [place] [address] Nurse Practitioner Hematology/Oncology 06/29/21 Angle Kamara, MONET [address] [place] [address] Specialty Welding Tester Hematology/Oncology 06/29/21 [facility] It Architecture Analyst 11/17/22 Bruise Trimmer Relationship Specialty Start Date End Date Flash Pearl MD [address] [place] [address] PCP - General 11/12/00 Sheng Gomez MD [address] [place] [address] Facilities Maintenance Manager Cardiology 09/20/20 Asher Hummel MD [address] [place] [address] Physician Hematology/Oncology 06/29/21 Wilfred Martinez, DREDGE MATE.FRINGE WEAVER [address] [place] [address] Nurse Practitioner Hematology/Oncology 06/29/21 Angle Kamara, RN [address] [place] [address] Specialty Welding Tester Hematology/Oncology 06/29/21 [facility] It Architecture Analyst 11/17/22 Team Status: Active Member Role Status Dates Jacquelin Barton MD Primary Care Provider Active Team Status: Inactive Member Role Status Dates Jacquelin Barton MD Primary Care Provider Active Start: October 17, 2023 End: October 17, 2023 Caryl Marie , JIGAR Emergency Provider Active Start: October 17, 2023 End: October 17, 2023 Bruise Trimmer Relationship Specialty Start Date End Date Flash Pearl MD [address] [place] [address] PCP - General 11/12/00 Sheng Gomez MD [address] [place] [address] Facilities Maintenance Manager Cardiology 09/20/20 Asher Hummel MD [address] [place] [address] [place] [address] Physician Hematology/Oncology 06/29/21 Wilfred Martinez APRN.FRINGE WEAVER [address] [place] [address] [place] [address] Nurse Practitioner Hematology/Oncology 06/29/21 Angle Kamara RN [address] [place] [address] [place] [address] Specialty Welding Tester Hematology/Oncology 06/29/21 [facility]ice It Architecture Analyst 11/17/22 Team Status: Inactive Member Role Status Dates Kit Morris MD Attending Provider Active Star t: November 11, 2023 End: November 11, 2023 Jacquelin Barton MD Primary Care Provider Active Start: November 11, 2023 End: November 11, 2023 Bruise Trimmer Relationship Specialty Start Date End Date Flash Pearl MD [address] [place] [address] PCP - General 11/12/00 Sheng Gomez MD [address] [place] [address] Facilities Maintenance Manager Cardiology 09/20/20 Asher Hummel MD [address] [place] [address] [place] [address] Physician Hematology/Oncology 06/29/21 Wilfred Martinez APRN.FRINGE WEAVER [address] [place] [address] [place] [address] Nurse Practitioner Hematology/Oncology 06/29/21 Angle Kamara, MONET [address] [place] [address] [place] [address] Specialty Welding Tester Hematology/Oncology 06/29/21 [facility] It Architecture Analyst 11/17/22 Bruise Trimmer Relationship Specialty Start Date End Date Flash Pearl MD [address] [place] [address] PCP - General 11/12/00 Sheng Gomez MD [address] [place] [address] Facilities Maintenance Manager Cardiology 09/20/20 Asher Hummel MD [address] [place] [address] Physician Hematology/Oncology 06/29/21 Wilfred Martinez, DREDGE MATE.FRINGE WEAVER [address] [place] [address] Nurse Practitioner Hematology/Oncology 06/29/21 Angle Kamara, RN [address] [place] [address] Specialty Welding Tester Hematology/Oncology 06/29/21 [facility]ice It Architecture Analyst 11/17/22 Bruise Trimmer Relationship Specialty Start Date End Date Flash Pearl MD [address] [place] [address] PCP - General 11/12/00 Sheng Gomez MD [address] [facility] [place] [address] Facilities Maintenance Manager Cardiology 09/20/20 Asher Hummel MD [address] [place] [address] Physician Hematology/Oncology 06/29/21 Wilfred Martinez, DREDGE MATE.FRINGE WEAVER [address] [place] [address] Nurse Practitioner Hematology/Oncology 06/29/21 Angle Kamara, RN [address] [place] [address] Specialty Welding Tester Hematology/Oncology 06/29/21 [facility] It Architecture Analyst 11/17/22 Team Status: Active Member Role Status Dates Vaishali Machado MD Specialist Active Sheng Gomez MD Facilities Maintenance Manager Active JIGAR Mcmahon Primary Care Provider Active Team Status: Inactive Member Role Status Dates Jacquelin Barton MD Primary Care Provider Active Start: January 20, 2024 End: January 20, 2024 JIGAR Mcmahon Attending Provider Act yoanna Start: January 20, 2024 End: January 20, 2024 Goals (unrecognized section and content) Goals may [...] BE BASED ON THE PRIMARY CLINICAL RECORDS. [employer] [facility]. provides no warranty or guarantee of the accuracy or completeness of information in this document.
--- NOTE | 2024-02-10 00:22 | ECG_ITS ---
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
--- NOTE | 2024-02-10 00:32 | ED.GENADUL1 ---
HPI HPI - General Adult General Chief complaint: Extremity Injury, Lower Stated complaint: RT LEG PAIN Time Seen by Provider: 02/10/24 00:03 Source: patient Mode of arrival: Wheelchair Limitations: no limitations History of Present Illness HPI narrative: This 83-year-old male presents for evaluation of pain, swelling and redness to the right lower extremity. He also has an area of redness on his right anterior chest. He denies any fever. He was seen in this emergency department recently after he fell and had hip and back pain. CT scans done at that time did not reveal any acute findings. He was discharged home with a prescription for Percocet for pain. The redness in his right leg has been present for almost a week but was not bothering him because he was taking the Percocet and he refused to come to the emergency department until this evening when his medications ran out. He has not had a fever. He has pain with ambulation. He denies any difficulty urinating. The patient gets weekly blood transfusions due to a history of myelodysplastic syndrome. He denies any chest pain or shortness of breath. He denies any nausea vomiting or diarrhea. Related Data Home Medications ?Medication ?Instructions ?Recorded ?Confirmed aspirin 81 mg tablet,delayed 81 mg PO QPM 02/03/23 02/10/24 release dapagliflozin propanediol 10 mg 10 mg PO DAILY 02/03/23 02/10/24 tablet (Farxiga) omeprazole 40 mg capsule,delayed 40 mg PO DAILY 02/03/23 02/10/24 release terazosin 5 mg capsule 5 mg PO QPM 02/03/23 02/10/24 atorvastatin 20 mg tablet 20 mg PO QDAY 04/23/23 02/10/24 blood sugar diagnostic ([facility] 04/23/23 12/31/23 Ultra Test strips) cholecalciferol (vitamin D3) 25 25 mcg PO DAILY 07/09/23 02/10/24 mcg (1,000 unit) tablet (Vitamin D3) cyclobenzaprine 5 mg tablet 5 mg PO BID PRN muscle spasm 07/09/23 02/10/24 glipizide 5 mg tablet, extended 5 mg PO QPM 07/09/23 02/10/24 release 24 hr (Glucotrol XL) metoprolol succinate 25 mg 12.5 mg PO DAILY 07/09/23 02/10/24 tablet,extended release 24 hr (Toprol XL) bumetanide 1 mg tablet 2 mg PO QAM 02/10/24 02/10/24 metolazone 2.5 mg tablet 2.5 mg PO .once weekly 02/10/24 02/10/24 spironolactone 25 mg tablet 25 mg PO .once daily 02/10/24 02/10/24 triamcinolone acetonide 0.1 % 1 applic topical BID 02/10/24 02/10/24 topical cream Previous Rx's ?Medication ?Instructions ?Recorded febuxostat 40 mg tablet 40 mg PO DAILY 30 days #30 tabs 07/10/23 lisinopril 2.5 mg tablet 2.5 mg PO DAILY 30 days #30 tabs 07/10/23 famotidine 20 mg tablet (Pepcid) 20 mg PO BID #10 tabs 12/31/23 Allergies Allergy/AdvReac Type Severity Reaction Status Date / Time bee venom protein (honey bee) Allergy Severe Hives Verified 02/10/24 00:16 carvedilol Allergy Hives Verified 02/10/24 00:16 Opioid HPI Opioid Management Most Recent Opioid Data: Last Pain Scale 8 02/10/24 00:51 Last MAR Pain Assessment 02/10/24 00:51 Last ORT Total Score 0 02/10/24 04:01 Last ORT Risk Category Low Risk 02/10/24 04:01 Review of Systems ROS Status of ROS 10 or more systems reviewed and unremarkable except as noted in history and below [facility] Medical History (Updated 02/10/24 @ 04:55 by Karen Vann MD) Syncopal episodes ?R55 - Syncope and collapse (ICD-10) Serous otitis media ?H65.90 - Unspecified nonsuppurative otitis media, unspecified ear (ICD-10) Chronic respiratory failure with hypoxia ?J96.11 - Chronic respiratory failure with hypoxia (ICD-10) Hearing loss ?H91.90 - Unspecified hearing loss, unspecified ear (ICD-10) Prostate cancer ?C61 - Malignant neoplasm of prostate (ICD-10) Kidney cysts ?N28.1 - Cyst of kidney, acquired (ICD-10) Bone marrow failure ?D61.9 - Aplastic anemia, unspecified (ICD-10) Angina pectoris ?I20.9 - Angina pectoris, unspecified (ICD-10) Pulmonary hypertension ?I27.20 - Pulmonary hypertension, unspecified (ICD-10) PVC (premature ventricular contraction) ?I49.3 - Ventricular premature depolarization (ICD-10) Sleep apnea ?G47.30 - Sleep apnea, unspecified (ICD-10) Colon polyp ?K63.5 - Polyp of colon (ICD-10) Gout ?M10.9 - Gout, unspecified (ICD-10) GERD (gastroesophageal reflux disease) ?K21.9 - Gastro-esophageal reflux disease without esophagitis (ICD-10) Extremity edema ?R60.0 - Localized edema (ICD-10) 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 - Cystic disease of liver (ICD-10) Chronic renal impairment ?N18.9 - Chronic kidney disease, unspecified (ICD-10) Stage III chronic kidney disease ?N18.30 - Chronic kidney disease, stage 3 unspecified (ICD-10) Bradycardia ?R00.1 - Bradycardia, unspecified (ICD-10) Benign prostatic hyperplasia ?N40.0 - Benign prostatic hyperplasia without lower urinary tract symptoms (ICD-10) 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 - Hypertensive chronic kidney disease with stage 1 through stage 4 chronic kidney disease, or unspecified chronic kidney disease (ICD-10) NYHA Class III cardiovascular function Renal insufficiency ?N28.9 - Disorder of kidney and ureter, unspecified (ICD-10) History of blood transfusion ?Z92.89 - Personal history of other medical treatment (ICD-10) MDS (myelodysplastic syndrome) ?D46.9 - Myelodysplastic syndrome, unspecified (ICD-10) Type 2 myocardial infarction ?I21.A1 - Myocardial infarction type 2 (ICD-10) Decompensated heart failure ?I50.9 - Heart failure, unspecified (ICD-10) Pancytopenia ?D61.818 - Other pancytopenia (ICD-10) Tricuspid regurgitation ?I07.1 - Rheumatic tricuspid insufficiency (ICD-10) Mitral valve regurgitation ?I34.0 - Nonrheumatic mitral (valve) insufficiency (ICD-10) GI (gastrointestinal bleed) ?K92.2 - Gastrointestinal hemorrhage, unspecified (ICD-10) Chronic diastolic heart failure ?I50.32 - Chronic diastolic (congestive) heart failure (ICD-10) Atrial fibrillation ?I48.91 - Unspecified atrial fibrillation (ICD-10) CAD (coronary artery disease) ?I25.10 - Atherosclerotic heart disease of [place] coronary artery without angina pectoris (ICD-10) Decreased appetite ?R63.0 - Anorexia (ICD-10) Dyspnea on exertion ?R06.09 - Other forms of dyspnea (ICD-10) On home oxygen therapy ?Z99.81 - Dependence on supplemental oxygen (ICD-10) Hyperkalemia ?E87.5 - Hyperkalemia (ICD-10) Epistaxis ?R04.0 - Epistaxis (ICD-10) CHF (congestive heart failure) ?I50.9 - Heart failure, unspecified (ICD-10) Myelodysplastic disease ?C94.6 - Myelodysplastic disease, not elsewhere classified (ICD-10) Anemia ?D64.9 - Anemia, unspecified (ICD-10) Hyperlipemia ?E78.5 - Hyperlipidemia, unspecified (ICD-10) Diabetes ?E11.9 - Type 2 diabetes mellitus without complications (ICD-10) Transfusion of blood during current hospitalisation Hypertension ?I10 - Essential (primary) hypertension (ICD-10) 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, valve unspecified (ICD-10) Anemia ?D64.9 - Anemia, unspecified (ICD-10) Surgical History (Updated 10/20/23 @ 14:09 by Kiah Lind NP) History of esophagogastroduodenoscopy (EGD) ?Z98.890 - Other specified postprocedural states (ICD-10) History of colonoscopy ?Z98.890 - Other specified postprocedural states (ICD-10) History of cardiac catheterization ?Z98.890 - Other specified postprocedural states (ICD-10) H/O right heart catheterization ?Z98.890 - Other specified postprocedural states (ICD-10) History of nasal cauterization ?Z98.890 - Other specified postprocedural states (ICD-10) S/P arterial stent ?Z95.9 - Presence of cardiac and vascular implant and graft, unspecified (ICD-10) History of heart artery stent ?Z95.5 - Presence of coronary angioplasty implant and graft (ICD-10) Family History Father Family history of stroke Mother Family history of stroke Family history of hypertension Family history of CHF (congestive heart failure) Brother Family history of diabetes mellitus Sister Family history of cancer Social History (Updated 10/21/23 @ 07:07 by Anna Uribe) Within the past year, how often did you have a drink containing alcohol: never Score interpretation: A score less than 4 is consistent with normal alcohol consumption. 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 level of school completed/degree received: high school graduate Are you now , , , , never or living with a partner: In a typical week, how many times do you talk on the telephone with family, friends, or neighbors: 3 or more times per week How often do you get together with friends or relatives: 3 or more times per week How often do you attend anglican or adventism services: 1-3 times per year Little interest or pleasure in doing things: not at all Feeling down, depressed, or hopeless: not at all Feel stressed/tense/nervous/anxious/difficulty sleeping: not at all Life stressors: unknown source of stress Do you think of yourself as: straight/heterosexual Gender Identity: male Exam Narrative Exam Narrative: Vital signs and Nursing Notes reviewed: Patient is afebrile with a normal pulse, normal blood pressure, he is not hypoxic with pulse ox of 100% on 3 L nasal cannula General: Awake, alert, oriented, nontoxic elderly male lying comfortably on the stretcher, no respiratory distress HEENT: Normocephalic atraumatic, mucous membranes are moist and pink, eyes are clear, normal conjunctiva, vision is grossly intact, posterior pharynx is normal in appearance. Neck: Supple, no meningeal signs, no anterior or posterior cervical lymphadenopathy Chest: Lungs are clear to auscultation with good air entry, there is no wheezing rhonchi or rales appreciated no accessory muscle use, patient is speaking in complete sentences-no chest wall tenderness to palpation, there is a small area of ecchymosis with associated erythema on the right anterior chest wall. CVS: Regular rate and rhythm S1-S2, no murmurs rubs or gallops, pulses are brisk and equal bilaterally ABD: Soft, nondistended, nontender, no rebound guarding or rigidity, bowel sounds are normal, no pulsatile masses appreciated : No rash or swelling noted in the scrotum, testicles, penis or perineal area Extremities: Right lower extremity is erythematous in a patchy pattern with 1+ pitting edema to the lower extremity and tenderness to palpation. Rash extends from the distal tib-fib to the inguinal area but does not include the perineum scrotum or testicles. The rash is mostly on the anterior aspect of the leg and not circumferential. Feet are warm and sensate. Dorsalis pedis and femoral pulses are palpable and brisk. There does not appear to be any infection involving the foot or ankle. No sign of diabetic foot ulcer on either foot. Skin: Patchy erythematous flat appearing rash in the right lower extremity, there is also a similar area on the right anterior chest wall that is approximately 3 x 3 cm. This rash blanches and is not petechial or purpural. Neuro: No focal deficits Constitutional Vital Signs, click to edit/add: Last Vital Signs Temp 98.5 F 02/10/24 04:05 Pulse 76 02/10/24 04:05 Resp 16 02/10/24 04:05 BP 102/61 02/10/24 04:05 Pulse Ox 99 02/10/24 04:05 O2 Del Method Nasal Cannula 02/10/24 04:05 O2 Flow Rate 3 02/10/24 04:05 Course Vital Signs Vital signs: Vital Signs Temperature 98.1 F 02/10/24 00:14 Pulse Rate 94 H 02/10/24 00:14 Respiratory Rate 18 02/10/24 00:14 Blood Pressure 111/62 02/10/24 00:14 Pulse Oximetry 100 02/10/24 00:14 Oxygen Delivery Method Nasal Cannula 02/10/24 00:14 Oxygen Delivery Flow Rate 3 02/10/24 00:14 Temperature 98.5 F 02/10/24 04:05 Pulse Rate 76 02/10/24 04:05 Respiratory Rate 16 02/10/24 04:05 Blood Pressure 102/61 02/10/24 04:05 Pulse Oximetry 99 02/10/24 04:05 Oxygen Delivery Method Nasal Cannula 02/10/24 04:05 Oxygen Delivery Flow Rate 3 02/10/24 04:05 Medical Decision Making MDM Narrative Medical decision making narrative: This 83-year-old male with multiple medical problems including myelodysplasia requiring weekly blood transfusions, chronic renal insufficiency, diabetes and hypertension is brought to the emergency department by his . The patient is complaining of right leg pain, redness and swelling. The symptoms have been present for the past week. The states the symptoms started on the lower part of the leg and in the past day or 2 has extended up past his knee. He has pain in the extremity. He has not had a fever. He did have an injury on February 02 in which he fell onto his right side and was seen in this emergency department and had CT scan done of his back and hip which was negative. There is no sign of any skin breakdown on the extremity. His pulses are brisk. The rash on his leg is mostly in the anterior aspect of the leg and not circumferential. It does not include the foot or majority of the ankle. He does have chronic skin changes on the left leg as well. The rash does not extend into his perineum or onto his abdominal wall but there is a small area of rash on his left anterior chest wall where there is an associated small bruise. The patient was prescribed Percocet when he was here for his fall but otherwise has not had any change in his medications. An EKG done upon arrival was atrial fibrillation which he is known to have. Despite a history of atrial fibrillation he is only on a daily baby aspirin for anticoagulation. Clinically I was concerned about a vascular infection or cellulitis. DVT is also in the differential. An IV was placed and routine labs were ordered. The initial CBC with differential was thought to be erroneous and was repeated as the patient has never had hemoglobin greater than 8 in the past 5 years since he has been requiring weekly blood transfusions. The CBC was repeated and his white count is 17.2 with a hemoglobin of 6.3. Sed rate, lactic acid and CRP were all elevated. Blood cultures are pending. Comprehensive metabolic profile shows a pattern of chronic renal insufficiency with a BUN of 61 and creatinine of 2.8. This was compared to blood work from previous visits and is stable. The patient was medicated with a dose of Percocet, IV fluids, IV Unasyn and IV vancomycin. On reevaluation he is feeling somewhat better and the rash/cellulitis appears to be stable and not worsening and may be somewhat improved. He was typed and screened for 2 units of blood due to the hemoglobin of 6.3. Consent was signed for the blood transfusion by the patient. He has remained hemodynamically stable in the emergency department. He does have a history of low blood pressure and his blood pressure has not dipped below 90/50. He did receive IV fluids and repeat lactic acid was ordered and is improved at 2.9. The case was discussed with the hospitalist service and the patient is excepted for admission to [facility], inpatient status. Medical Records Medical records reviewed: Yes I reviewed the patient's medical records Lab Data Lab results reviewed: Yes I reviewed the patient's lab results Labs: Lab Results 02/10/24 02/10/24 02/10/24 Range/Units 00:43 01:53 02:23 WBC 11.8 H 17.2 H (4.0-11.0) 10^3/uL RBC 3.55 L 1.92 L (4.70-6.10) 10^6/uL Hgb 11.6 L 6.3 L* D (14.0-18.0) g/dL Hct 36.4 L 20.1 L* (42.0-54.0) % MCV 102.5 H 104.7 H (80.0-94.0) fL MCH 32.7 32.8 (25.9-34.0) pg MCHC 31.9 31.3 (29.9-35.2) g/dL RDW 23.5 H 22.8 H (11.0-15.0) % Plt Count 128 L 144 L (150-450) 10^3/uL MPV 13.6 H 13.5 (9.5-13.5) fL Neut % (Auto) 80.3 H (43.0-75.0) % Lymph % (Auto) 3.8 L (20.5-60.0) % [place] % (Auto) 9.9 (1.7-12.0) % Eos % (Auto) 0.0 L (0.9-7.0) % Baso % (Auto) 0.1 L (0.2-2.0) % Neut # (Auto) 13.8 H (1.4-6.5) 10^3/uL Lymph # (Auto) 0.7 L (1.2-3.8) 10^3/uL [place] # (Auto) 1.7 H (0.3-0.8) 10^3/uL Eos # (Auto) 0.0 (0.0-0.7) 10^3/uL Baso # (Auto) 0.0 (0.0-0.1) 10^3/uL Abs Immat Gran (auto) 1.01 H (0.00-0.03) 10^3/uL Seg Neuts % (Manual) 56.0 Band Neutrophils % 22.0 H (0-5) % Lymphocytes % (Manual) 7.0 L (20.5-60.0) % Atypical Lymphs % (Man) 0.0 % Monocytes % (Manual) 15.0 H (1.7-12.0) % Eosinophils % (Manual) 0.0 L (0.9-7.0) % Basophils % (Manual) 0.0 L (0.2-2.0) % Imm/Tot Granulo (auto) 5.9 H (0.0-0.5) % Neutrophils # (Manual) 6.60 H (1.4-6.5) 10^3/uL Band Neutrophils # 2.6 H (0.0-0.3) 10^3/uL Lymphocytes # (Manual) 0.82 L (1.20-3.80) 10^3/uL Abs Atypical Lymphs Man 0.00 Monocytes # (Manual) 1.77 H (0.30-0.80) 10^3/uL Eosinophils # (Manual) 0.00 (0.00-0.70) 10^3/uL Basophils # (Manual) 0.00 (0.00-0.10) 10^3/uL ESR >130 H (<=20) mm/hr PT 12.6 H (9.0-11.6) sec INR 1.21 Sodium 135 L (136-145) mmol/L Potassium 4.6 (3.5-5.1) mmol/L Chloride 98 (98-107) mmol/L Carbon Dioxide 26.7 (21.0-32.0) mmol/L Anion Gap 14.9 BUN 61.0 H (7.0-18.0) mg/dL Creatinine 2.80 H (0.70-1.30) mg/dL Est GFR ( Amer) 26 L (>=60) Est GFR (Non-Af Amer) 22 L (>=60) BUN/Creatinine Ratio 21.8 Glucose 94 (74-106) mg/dL Lactate 4.1 H* 2.9 H* (0.4-2.0) mmol/L Calcium 8.4 L (8.5-10.1) mg/dL Total Bilirubin 0.7 (0.2-1.0) mg/dL AST 89 H (15-37) U/L ALT 101 H (16-63) U/L Alkaline Phosphatase 198 H (46-116) U/L C-Reactive Protein 27.84 H (<=0.50) mg/dL Total Protein 7.4 (6.4-8.2) g/dL Albumin 2.2 L (3.4-5.0) g/dL Globulin 5.2 g/dL Albumin/Globulin Ratio 0.4 Blood Type A Positive Antibody Screen Negative Crossmatch See Detail ECG Data Attestation: I personally reviewed and interpreted this ECG as follows: (Atrial fibrillation 83 bpm, left anterior hemiblock, occasional PVCs, indeterminate axis, no acute ST segment elevation or T wave inversion) Discharge Plan Discharge Chief Complaint: Extremity Injury, Lower Clinical Impression: Cellulitis of leg, right, Anemia, Chronic renal disease Patient Disposition: Admitted As Inpatient Time of Disposition Decision: 02:48 Condition: Fair Discharge Date/Time: 02/10/24 03:35
[2024-02-10] MEDS: 0.9 % SODIUM CHLORIDE 1,000 ML 100 ML IV (00:51)
[2024-02-10] MEDS: OXYCODONE HCL/ACETAMINOPHEN 5MG/325MG 1 TAB PO (00:51)
[2024-02-10 00:57] LABS: Hematocrit 36.4 % (42.0-54.0); Hemoglobin 11.6 g/dL (14.0-18.0); Mean Corpuscular HGB Conc 31.9 g/dL (29.9-35.2); Mean Corpuscular Hemoglobin 32.7 pg (25.9-34.0); Mean Corpuscular Volume 102.5 fL (80.0-94.0); Mean Platelet Volume 13.6 fL (9.5-13.5); Platelet Count 128 10^3/uL (150-450); Red Blood Count 3.55 10^6/uL (4.70-6.10); Red Cell Distribution Width 23.5 % (11.0-15.0); White Blood Count 11.8 10^3/uL (4.0-11.0)
[2024-02-10] MEDS: AMPICILLIN SODIUM/SULBACTAM NA 3 GM in 0.9 % SODIUM CHLORIDE 100 ML IV (01:05)
[2024-02-10 01:09] LABS: C Reactive Protein 27.84 mg/dL (<=0.50)
[2024-02-10 01:10] LABS: Erythrocyte Sedimentation Rate >130 mm/hr (<=20); INR 1.21; Prothrombin Time 12.6 sec (9.0-11.6)
[2024-02-10 01:14] LABS: Alanine Aminotransferase 101 U/L (16-63); Albumin Globulin Ratio 0.4; Albumin Level 2.2 g/dL (3.4-5.0); Alkaline Phosphatase 198 U/L (46-116); Anion Gap 14.9; Aspartate Amino Transferase 89 U/L (15-37); BUN Creatinine Ratio 21.8; Bilirubin Total 0.7 mg/dL (0.2-1.0); Calcium 8.4 mg/dL (8.5-10.1); Carbon Dioxide 26.7 mmol/L (21.0-32.0); Chloride 98 mmol/L (98-107); Estimated GFR (African America 26 (>=60); Estimated GFR (Non-African Ame 22 (>=60); Globulin 5.2 g/dL; Glucose 94 mg/dL (74-106); Potassium 4.6 mmol/L (3.5-5.1); Sodium 135 mmol/L (136-145); Total Protein 7.4 g/dL (6.4-8.2)
[2024-02-10 01:17] LABS: Lactate/Lactic Acid 4.1 mmol/L (0.4-2.0)
[2024-02-10 01:28] LABS: Band Neutrophils Absolute 2.6 10^3/uL (0.0-0.3); Lymphocytes Absolute Manual 0.82 10^3/uL (1.20-3.80); Monocytes Absolute Manual 1.77 10^3/uL (0.30-0.80)
[2024-02-10] MEDS: VANCOMYCIN HCL 1,000 MG in 0.9 % SODIUM CHLORIDE 500 ML 250 MG IV (02:25)
[2024-02-10 02:33] LABS: Basophils Percent Auto 0.1 % (0.2-2.0); Immature Granulocytes Abs Auto 1.01 10^3/uL (0.00-0.03); Immature Granulocytes Pct Auto 5.9 % (0.0-0.5); Lymphocytes Absolute Auto 0.7 10^3/uL (1.2-3.8); Lymphocytes Percent Auto 3.8 % (20.5-60.0); Mean Corpuscular HGB Conc 31.3 g/dL (29.9-35.2); Mean Corpuscular Hemoglobin 32.8 pg (25.9-34.0); Mean Corpuscular Volume 104.7 fL (80.0-94.0); Mean Platelet Volume 13.5 fL (9.5-13.5); Monocytes Absolute Auto 1.7 10^3/uL (0.3-0.8); Monocytes Percent Auto 9.9 % (1.7-12.0); Neutrophils Absolute Auto 13.8 10^3/uL (1.4-6.5); Neutrophils Percent Auto 80.3 % (43.0-75.0); Platelet Count 144 10^3/uL (150-450); Red Blood Count 1.92 10^6/uL (4.70-6.10); Red Cell Distribution Width 22.8 % (11.0-15.0); White Blood Count 17.2 10^3/uL (4.0-11.0)
[2024-02-10 02:36] LABS: Hematocrit 20.1 % (42.0-54.0); Hemoglobin 6.3 g/dL (14.0-18.0)
[2024-02-10 02:54] LABS: Lactate/Lactic Acid 2.9 mmol/L (0.4-2.0)
--- NOTE | 2024-02-10 03:22 | US_ITS ---
[address] [address] Patient Name: SANDIP BROUSSARD MRN: [id number] date: 1940 Sex: M Assigned Patient Location: [place] Current Patient Location: [place] Accession/Order Number: [id number] Exam Date: 02/10/2024 07:25 Report Date: 02/10/2024 08:39 At the request of: RUPESH DESAI Procedure: US venous doppler LE BI EXAM: US venous doppler LE BI HISTORY: rule out DVT COMPARISON: None. TECHNIQUE: Grayscale, color and Doppler FINDINGS: Region: Bilateral legs Thrombus: None Flow: Normal Compressibility: Normal Augmentation: Normal US/US venous doppler LE BI IMPRESSION: No deep or superficial vein thrombus identified in the legs Electronically authenticated by: JOSIE MIRAMONTES Date: 02/10/2024 08:39
--- OUTSIDE RECORDS SUMMARY | 2024-02-10 03:44 | XMS_ITS | CCD ---
Author Organization [facility]ini[facility] Care Team Providers Care Cartridge Gauger Name Role Phone MYLENE ANDREW Unavailable Unavailable Flash Pearl Unavailable Unavailable Evette Sheriff Unavailable Unavailable Flash Pearl Unavailable Unavailable MYLENE ANDREW Unavailable Unavailable Flash Pearl Unavailable Unavailable Evette Sheriff Unavailable Unavailable Flash Pearl Unavailable Unavailable Flash Pearl Primary Care Provider Flash Pearl MD Primary Care Provider Sheng Gomez MD Unavailable Asher Hummel MD Unavailable Michelle RADIO MECHANIC.LINUX SUPPORT ENGINEER, Wilfred Unavailable Anh HEALY, Angle Unavailable KELSEY RAMIREZ Admitting Unavailable SELF, REFERRED Referring Unavailable FLASH PEARL Primary Care Unavailable RAMOS, LUIS Attending Unavailable Flash Pearl MD Primary Care Provider Sheng Gomez MD Unavailable Asher Hummel MD Unavailable [phone] Michelle RADIO MECHANIC.LINUX SUPPORT ENGINEER, Wilfred Unavailable Anh RN, Angle Unavailable Flash Pearl MD Primary Care Provider Asher Hummel MD Unavailable Anh HEALY, Angle Unavailable Flash Pearl MD Primary Care Provider Flash Pearl MD Primary Care Provider Sheng Gomez MD Unavailable Estephanie SEN, Asher Unavailable [phone] Michelle RADIO MECHANIC.RAMONA, Wilfred Unavailable [phone] Anh HEALY, Angle Unavailable MISC, DR SORIA [...] PEARL ., DR FLASH Holden Consulting Unavailable PAPAIKOU, DR JOSIE Rowe Consulting Unavailable ZIEBER, DR [...] Care Unavailable MISC, DR SORIA Attending Unavailable PAERL ., DR FLASH Holden Primary Care Unavailable [...] Unavailable MD Jacquelin Barton Primary Care Provider JIGAR Marie Emergency Provider Rocío Ram Unavailable Unavailable Jason SEN, Sheng Garduno Unavailable Anh HEALY, Angle Unavailable Caryl Marie N [...] E. Referring Unavailable DOElena R Attending Unavailable ODElena R Attending Unavailable PEARL FLASH E Attending [...] Unavailable Ross, Jacquelin E. Attending Unavailable Earl, AIRCRAFT AVIONICS TECHNICIAN Malinda L Admitting Unavailable Earl, AIRCRAFT AVIONICS TECHNICIAN Malinda L Attending Unavailable Earl, AIRCRAFT AVIONICS TECHNICIAN Malinda L Attending Unavailable Earl, AIRCRAFT AVIONICS TECHNICIAN Malinda L Admitting Unavailable Ross, Jacquelin E. Referring Unavailable Al-Marrawi, Mhd Yaser Attending Unavailabl e Al-Marrawi, Mhd Yaser Admitting Unavailabl e Al-Marrawi, Mhd Yaser Attending Unavailabl e Ross, Jacquelin E. Admitting Unavailable Ross, Jacquelin E. Attending Unavailable Ross, Jacquelin E. Attending Unavailable Mick, Jacquelin E. Attending Unavailable FLASH PEARL Attending Unavailable Flash Pearl MD Primary Care Provider [phone] OUMOU MANDEL Attending Unavailable FLASH PEARL Primary [...] carvedilol; Translations: [Coreg] Drug Allergy 6 unknown [facility] Repository (20 sources) Bee/Wasp/Ant venom Propensity to adverse reactions 2 [facility] (20 sources) carvedilol; Translations: [carvedilol] Drug Allergy 0 Hives, Weal (disorder) [facility] (1 source) Bee/Wasp/Ant venom; Translations: [Bee/Wasp Stings] Propensity to adverse reactions (disorder) 2 [facility] Repository (1 source) carvedilol Drug Allergy 1 [facility] Repository (1 source) bee venom Drug allergy (disorder) [facility] Repository (6 sources) Metoprolol; Translations: [metoprolol] Drug Allergy [facility] (6 sources) Bee pollen; Translations: [BEE POLLEN] Drug [facility] 2 [facility] Work Phone: (2 sources) bee venom protein (honey bee) Allergy to substance 4 [facility] (1 source) Sulfonamide -class of antibiotic-; Translations: [Sulfonamide -class of antibiotic-] Propensity to adverse reactions (disorder) [facility] Repository (1 source) OTHER; Translations: [OTHER] Propensity to adverse reactions (disorder) 2 [facility] Main [place] Repository Medications Current Medications Medication Drug Class(es) [...] Daily, # 180 tab(s), Refills(s) 1, Pharmacy: [facility] [id number], 170.2, cm, 02/13/23 15:53:00 EDT, Height/Length Dosing, 102.4, kg, 02/13/23 15:53:00 EDT, Weight Dosing Start Date: 02/24/23 Status: Ordered Start: 02-24-2023 take 1 tablet by adrian th twice daily bumetanide 2 mg Tab 2 mg = 1 tab(s), Oral, BID, # 180 tab(s), Refills(s) 1, Pharmacy: [facility] [id number], 170.2, cm, 02/13/23 15:53:00 EDT, Height/Length Dosing, [...] TID, # 270 tab(s), Refills(s) 1, Pharmacy: [facility] [id number], 170.2, cm, 02/13/23 15:53:00 EDT, Height/Length Dosing, [...] Daily, # 90 EA, Refills(s) 1, Pharmacy: [facility] [id number], 170, cm, 10/13/23 13:19:00 EDT, Height/Length Dosing, [...] System (Sensor). Replace sensor every 14 days., [facility] [id number], Supply, 170.2, cm, 03/10/23 14:59:00 EDT, Height/Length Dosing, 101.3, kg, 03/10/23 14:59:00 EDT, Weight Dosing Start Date: 03/10/23 Status: Ordered Start: 03-10-2023 Freestyle Libr e 2 Flash Glucose Monitoring 14 Day System (Sensor) Freestyle Carmen 2 Flash Glucose Monitoring 14 Day System (Sensor), See Instructions, 2 EA, 0, Freestyle Carmen Flash Glucose Monitoring 14 Day System (Sensor). Replace sensor every 14 days., [facility] [id number], Supply, 170.2, cm, 03/10/23 14:59:0... Start Date: 03/10/23 Status: Ordered Freestyle Carmen Flash 2 Glucose Monitoring 14 Day System ([place]) (2 sources) Start: 03-10-2023 Freestyle Libr e Flash 2 Glucose Monitoring 14 Day System ([place]) Freestyle Carmen Flash 2 Glucose Monitoring 14 Day System ([place]), See Instructions, 1 EA, 0, Freestyle Carmen Flash Glucose Monitoring 14 Day System ([place]), [facility] [employer] [id number], Supply, 170.2, cm, 03/10/23 14:59:00 EDT, Height/Length Dosing, 101.3, kg, 03/10/23 14:59:00 EDT, Weight Dosing Start Date: 03/10/23 Status: Ordered Start: 03-10-2023 Freestyle Libr e Flash 2 Glucose Monitoring 14 Day System ([place]) Freestyle Carmen Flash 2 Glucose Monitoring 14 Day System ([place]), See Instructions, 1 EA, 0, Freestyle Carmen Flash Glucose Monitoring 14 Day System ([place]), [facility] [employer] [id number], Supply, 170.2, cm, 03/10/23 14:59:00 EDT, Height/Length [...] DAY, # 180 tab(s), Refills(s) 0, Pharmacy: [facility] [employer] [id number], 170, cm, 07/15/23 14:05:00 EST, Height/Length Dosing, 95.4, kg, 07/15/23 14:05:00 EST, Weight Dosing Start Date: 08/25/23 Status: Ordered Start: 02-24-2023 take 1 tablet by adrian th twice daily glipiZIDE 5 mg ER Tab 5 mg = 1 tab(s), Oral, BID, # 180 tab(s), Refills(s) 1, Pharmacy: [facility] [id number], 170.2, cm, 02/13/23 15:53:00 EDT, Height/Length Dosing, [...] Daily, # 90 tab(s), Refills(s) 1, Pharmacy: [facility] [id number], 170.2, cm, 02/13/23 15:53:00 EDT, Height/Length Dosing, 102.4, kg, 02/13/23 15:53:00 EDT, Weight Dosing Start Date: 02/24/23 Status: Ordered Comment on above: Take 2.5 mg by mouth once daily. 24 hr metoprolol succinate 25 mg extended release oral tablet (20 sources) beta-Adrenergic Angel Start: 02-24-2023 metoprolol 25 mg ER Tab 12.5 mg = 0.5 tab(s), Oral, Daily, # 45 tab(s), Refills(s) 1, Pharmacy: [facility] [id number], 170.2, cm, 02/13/23 15:53:00 EDT, Height/Length Dosing, [...] Coronary atherosclerosis of unspecified type of vessel, [place] or graft Take one(1) tablet daily at [...] Start: 07-15-2023 take 4 tablets by mo [facility] twice daily lisinopril 2.5 mg Tab See Instructions, 10mg orally twice a day, Refills(s) 0 Start Date: 07/15/23 Status: Ordered Start: 02-24-2023 take 1 tablet by adrian twice daily lisinopril 10 mg Tab 10 mg = 1 tab(s), Oral, BID, # 90 tab(s), Refills(s) 1, Pharmacy: [facility] [id number], 170.2, cm, 02/13/23 15:53:00 EDT, Height/Length Dosing, [...] tablet by mouth twice daily Potassium Chloride (Jye-Nhcs-Dga M20) 20 mEq oral tablet, extended release 20 mEq = 1 tab(s), Oral, BID, # 180 tab(s), Refills(s) 1, Pharmacy: [facility] [id number], 170.2, cm, 02/13/23 15:53:00 EDT, Height/Length Dosing, 102.4, kg, 02/13/23 15:53:00 EDT, Weight Dosing Start Date: 02/24/23 Status: Ordered Start: 11-20-2022 take 1 tablet by adrian th twice daily Potassium Chloride (Xza-Oydb-Jll M20) 20 mEq oral tablet, extended release [...] Coronary atherosclerosis; Translations: [Atherosclerotic heart disease of [place] coronary artery without angina pectoris] Onset: 01-13-2002 [...] unspecified] 11-11-2023 Chronic Other aftercare (1 source) roasterman (current) use of aspirin; Translations: [GROUP HOME CURRENT USE OF ASPIRIN] Onset: 12-11-2022 Episodic Other aftercare (1 source) Other predatory animal exterminator (current) drug therapy; Translations: [OTH DISTRIBUTOR PUBLICATIONS CURRENT DRUG THERAPY] Onset: 12-11-2022 Episodic Other aftercare (1 source) roasterman (current) use of oral hypoglycemic drugs; Translations: [DISTRIBUTOR PUBLICATIONS USE ORAL HYPOGLYCEMIC DX] Onset: 12-11-2022 Episodic [...] 12.5 mg daily or 1/2 tab Normal [facility] Office Visiton 01-15-2024 Follow-up visit [id number] Sandip Broussard 1940 M Date Provider Department Center 01/15/2024 120-ZARA, KAREN BH CARD [facility] Family History Problem Relation Age of Onset Hypertension Mother Stroke Father Breast cancer Sister Family Status - Relation Status Age at Mother Father Sister Level of Service:63804 ID OFFICE/OUTPATIENT ESTABLISHED MOD MDM 30 MIN Normal [facility] CNOVon 01-06-2024 CNOV Office Visit (OTOLST ) SANDIP BROUSSARD ([id number]) 1940 M Date Time Provider Department 01/06/24 [...] Refills S (more content not included)... Normal [place] CNOVon 11-26-2023 CNOV Office Visit (DOMINGO ) AARTISANDIP ([id number]) 1940 M Date Time Provider Department 11/26/23 [...] after a week no better, move to [facility] metolazone. Despite the order existing he's not taken this drug before -repeat labs in 2 weeks in [place], printed orders given. -RTC in 3 months or so SUBJECTIVE chief complaint HPI: 82 year old mal hx of HTN, diastolic CHF, afib, CAD, DM, Prostate Cancer, MDS. Much of his care has been at [facility]. He's had ongoing and previous episodes [...] Had hyperkaelmia in september which he saw ELECTRIC MOTOR CONTROL ASSEMBLER Zara Bumex: 1mg bid Adlactone + K [...] Orthostatic vit (more content not included)... Normal [place] URINALYSIS, REFLEX MICROSCOP ICon 05-01-2024 Bilirubin Ql (U) Negative Negative [facility] Clarity (Unsp spec) Clear Clear [facility] Color (U) Light Yellow Yellow [facility] Glucose Test strip (U) [Mass/Vol] Negative Trace, Negative [facility] Hemoglobin Ql (U) Negative Negative, Trace [facility] Interpretation and review of laboratory results Normal [facility] Ketones Ql (U) Negative Negative, Trace [facility] Leukocyte esterase Test strip Ql (U) Negative Negative, 25 Chin/uL [facility] Nitrite Ql (U) Negative Negative [facility] pH (U) 6.5 [pH] 5.0 - 8.0 [facility] Protein (U) [Mass/Vol] Negative Trace, Negative [facility] Specific gravity (U) [Rel density] 1.009 1.005 - 1.030 [facility] Urobilinogen Ql (U) Normal Normal [facility] Bilirubin Ql (U) Negative Normal Negative [facility] Comment on above: Order Comment: Speci men Type: URINE SPECIMEN Ordering Facility: [facility] Address: [address] [place] [address] Performed By: #### L [id number] #### [facility] CLIA [id number] [address] [place] [address] [place] Clarity (Unsp spec) Clear Normal Clear [facility] Comment on above: Order Comment: Speci men Type: URINE SPECIMEN Ordering Facility: [facility] Address: [address] [place] [address] Performed By: #### L [id number] #### [facility] CLIA [id number] [address] [place] [address] [place] Color (U) Light Yellow Normal Yellow [place] Comment on above: Order Comment: Speci men Type: URINE SPECIMEN Ordering Facility: [facility] Address: [address] [place] [address] Performed By: #### L [id number] #### [facility] CLIA [id number] [address] [place] [address] [place] Glucose Test strip (U) [Mass/Vol] Negative Normal Trace, Negative [place] Comment on above: Order Comment: Speci men Type: URINE SPECIMEN Ordering Facility: [facility] Address: [address] [place] [address] Performed By: #### L [id number] #### [facility] CLIA [id number] [address] [place] [address] [place] Hemoglobin Ql (U) Negative Normal Negative, Trace Cl [facility] Comment on above: Order Comment: Speci men Type: URINE SPECIMEN Ordering Facility: [facility] Address: [address] [place] [address] Performed By: #### L [id number] #### [facility] CLIA [id number] [address] [place] [address] [place] Ketones Ql (U) Negative Normal Negative, Trace [facility] Comment on above: Order Comment: Speci men Type: URINE SPECIMEN Ordering Facility: [facility] Address: [address] [place] [address] Performed By: #### L [id number] #### [facility] CLIA [id number] [address] [place] [address] [place] Leukocyte esterase Test strip Ql (U) Negative Normal Negative, 25 Chin/uL [place] Comment on above: Order Comment: Speci men Type: URINE SPECIMEN Ordering Facility: [facility] Address: [address] [place] [address] Performed By: #### L [id number] #### [facility] CLIA [id number] [address] [place] [address] [place] Nitrite Ql (U) Negative Normal Negative [place] Comment on above: Order Comment: Speci men Type: URINE SPECIMEN Ordering Facility: [facility] Address: [address] [place] [address] Performed By: #### L [id number] #### [facility] CLIA [id number] [address] [place] [address] [place] pH (U) 6.5 [pH] Normal 5.0-8.0 [place] Comment on above: Order Comment: Speci men Type: URINE SPECIMEN Ordering Facility: [facility] Address: [address] [place] [address] Performed By: #### L [id number] #### [facility] CLIA [id number] [address] [place] [address] [place] Protein (U) [Mass/Vol] Negative Normal Trace, Negative [place] Comment on above: Order Comment: Speci men Type: URINE SPECIMEN Ordering Facility: [facility] Address: [address] [place] [address] Performed By: #### L [id number] #### [facility] CLIA [id number] [address] [place] [address] [place] Specific gravity (U) [Rel density] 1.009 Normal 1.005-1.030 [place] Comment on above: Order Comment: Speci men Type: URINE SPECIMEN Ordering Facility: [facility] Address: [address] [place] [address] Performed By: #### L [id number] #### [facility] CLIA [id number] [address] [place] [address] [place] Urobilinogen Ql (U) Normal Normal Normal [facility] Comment on above: Order Comment: Speci men Type: URINE SPECIMEN Ordering Facility: [facility] Address: [address] [place] [address] Performed By: #### L [id number] #### [facility] CLIA [id number] [address] [place] [address] [place] 36on 11-19-2023 36 PT INFORMED Normal [facility] 36 PER CHUY NEPHRO NEEDS TO ADJUST DIURETIC Normal [facility] Consultation Noteon 11-14-19 24 Consultation Note [id number] .[facility] Auth for Release of Medical Recordson 11-12-2023 Auth for Release of Medical Records [id number]#1 .[facility] Consultation Noteon 11-10-19 Consultation Note [id number]#1 .[facility] CNOVon 10-27-2023 CNOV Office Visit (OTOLLN ) SANDIP BROUSSARD ([id number]) 1940 M Date Time Provider Department 10/27/23 3:15 PM CURT FARAH During your visit today, we recorded the following information about you: Temperature 98.2 degrees Curt Farah MD 10/27/2023 4:17 PM Signed SECTION OF RHINOLOGY, SINUS AND SKULL BASE SURGERY Head and Neck [facility], [facility] NOTE HPI: Patient is a 82 [...] no polyps/ma (more content not included)... Normal [place] Outside Recordson 10-22-2023 Outside Records [id number]#1 .00TIFF Normal [facility] Outside Records [id number]# 1.00TIFF Normal [facility] ED Note-Physicianon 10-21-19 ED Note-Physician [id number]#1 .00TIFF Normal [facility] EDPROVon 10-21-2023 EDPROV HPI Chief Complaint Patient presents with Nasal Packing Removal Patient was sent from [facility] to have nasal packing removed needs to be under general anesthesia, that facility does not have a rehabilitation nurse on staff. Patient sent from [facility]. Pt was due to have nasal packing removed under anesthesia, however, the anesthesiologist did not feel comfortable without cardiology support. The pt follows with Dr. Gomez. Pt was sent to our ED for possible admission. However, we do not have ENT coverage. [place] Coma Scale Score: 15 Patient History Past Medical History: Diagnosis Date Atrial fibrillation (CMS/HCC) Bradycardia 03/13/2022 Cancer ([facility]/HCC) CHF (congestive heart failure) ([facility]) Chronic kidney disease Diabetes mellitus ([facility]) Heart valve disease Hyperlipidemia Hypertension PVC (premature [...] Attestion Deacon Méndez MD 10/21/23 1552 Normal [facility] Family Medicine Office/Clini c Noteon 10-21-2023 Family Medicine Office/Clinic Note HPI Staff Sandip is a 82 year old male presenting for [facility] hospital follow up anemia In the ER [...] mg/dL. He has an upcoming appointment with certified surgical tech/first assistant Dr. Navarro next month. He is currently taking terazosin. He reports no significant issues with regards to his respiratory status and is not under the care of a explosive ordnance specialist. The patient's has noticed a decline in his hearing ability. He has an ongoing ear infection, and his hearing aid is not functioning properly. He received treatment with cephalexin and amoxicillin after an emergency room visit. His hearing aid is approximately 1 year old. He will be seeing his rehabilitation nurse on 01/15/2024. The patient's reports that managing [...] it's related to COPD or anemia. No equipment hire manager consultation is scheduled currently. 5. Chronic systolic [...] 31.0-31.9, adult) (more content not included)... Normal [facility] Comment on above: Result Comment: [...] off the table . Any advice? Normal [facility] Anisocytosis LM Ql (Bld)Orde red By: Caryl Marie on 10-17-2023 Anisocytosis Ql (Bld) Slight [facility] Band form neutrophils/100 WB C Manual cnt (Bld)Ordered By: Caryl Marie on 10-17-2023 Band form neutrophils/100 WBC (Bld) 4 % 0-5 [facility] Basic Metabolic Panelon 09-26 Anion gap [Moles/Vol] 14.8 mmol/L Normal 6.0-15.0 [facility] Comment on above: Performed By: #### D IFF CBC, BMP #### [facility] [address] [place] [address] [place] Calcium [Mass/Vol] 8.1 mg/dL Low 8.6-10.3 [facility] Comment on above: Performed By: #### D IFF CBC, BMP #### [facility] [address] [place] [id number] [place] Chloride [Moles/Vol] 103 mmol/L Normal 98-107 [facility] Comment on above: Performed By: #### D IFF CBC, BMP #### [facility] [address] [place] [id number] [place] CO2 [Moles/Vol] 25.2 mmol/L Normal 21.0-31.0 [facility] Comment on above: Performed By: #### D IFF CBC, BMP #### [facility] [address] Creatinine [Mass/Vol] 1.98 mg/dL High 0.70-1.30 [facility] Comment on above: Performed By: #### D IFF CBC, BMP #### [facility] [address] [place] [address] [place] Creatinine Clr Calc Pharmacy 29.51 [facility] Comment on above: Result Comment: PERF ORMED BY: [facility] [address] [place] [address] PATHOLOGIST TWISTER TENDER XAVI ZAIDI M.D. Performed By: #### D IFF CBC, BMP #### [facility] [address] [place] [address] [place] GFR/1.73 sq M.predicted MDRD (S/P/Bld) [Vol rate/Area] 32.696 mL/min/{1.73_m2} [facility] Comment on above: Performed By: #### D IFF CBC, BMP #### [facility] [address] Glucose [Mass/Vol] 202 mg/dL High 70-100 [facility] Comment on above: Result Comment: [place] Glucose Reference Range is dependent on time and content of last meal. Glucose of more than 200 mg/dL in a nonstressed, ambulatory subject supports the diagnosis of Diabetes Mellitus. ADA recommended reference range Performed By: #### D IFF CBC, BMP #### [facility] [address] [place] [address] [place] Potassium [Moles/Vol] 4.0 mmol/L Normal 3.5-5.1 [facility] Comment on above: Performed By: #### D IFF CBC, BMP #### [facility] [address] [place] [address] [place] Sodium [Moles/Vol] 139 mmol/L Normal 136-145 [facility] Comment on above: Performed By: #### D IFF CBC, BMP #### [facility] [address] [place] [address] [place] Urea nitrogen [Mass/Vol] 49 mg/dL High 7-25 [facility] Comment on above: Performed By: #### D IFF CBC, BMP #### [facility] [address] [place] [address] [place] Basophils Auto (Bld) [#/Vol] Ordered By: Caryl Marie on 10-17-2023 Basophils (Bld) [#/Vol] N/A [facility] Basophils/100 WBC Auto (Bld) Ordered By: Caryl Marie on 10-17-2023 Basophils/100 WBC (Bld) N/A [facility] Basophils/100 WBC Manual cnt (Bld)Ordered By: Caryl Marie on 10-17-2023 Basophils/100 WBC (Bld) 1 % 0-2 [facility] Calcium [Mass/volume] in Ser um or PlasmaOrdered By: Caryl Marie on 10-17-2023 Calcium [Mass/Vol] 8.1 mg/dL 8.6-10.3 [facility] Carbon dioxide, total [Moles /volume] in Serum or PlasmaOrdered By: Caryl Marie on 10-17-2023 CO2 [Moles/Vol] 25.2 mmol/L 21.0-31.0 [facility] Chloride [Moles/volume] in S robinson or PlasmaOrdered By: Caryl Marie on 10-17-2023 Chloride [Moles/Vol] 103 mmol/L 98-107 [facility] Creatinine [Mass/volume] in Serum or PlasmaOrdered By: Caryl Marie on 10-17-2023 Creatinine [Mass/Vol] 1.98 mg/dL 0.70-1.30 [facility] Diff and CBCon 10-17-2023 Anisocytosis Ql (Bld) Slight Normal [facility] Comment on above: Performed By: #### D IFF CBC, BMP #### [facility] [address] [place] [address] [place] Band form neutrophils/100 WBC (Bld) 4 % Normal 0-5 [facility] Comment on above: Performed By: #### D IFF CBC, BMP #### [facility] [address] [id number] [place] Basophils/100 WBC (Bld) 1 % Normal 0-2 [facility] Comment on above: Performed By: #### D IFF CBC, BMP #### [facility] [address] Eosinophils/100 WBC (Bld) 1 % Normal 1-3 [facility] Comment on above: Performed By: #### D IFF CBC, BMP #### [facility] [address] Erythrocyte distribution width (RBC) [Ratio] 23.0 % High 12.0-14.8 [facility] Comment on above: Performed By: #### D IFF CBC, BMP #### [facility] [address] Giant Platelet Tally 2 /100{WBC} Normal [facility] Comment on above: Performed By: #### D IFF CBC, BMP #### [facility] [address] Hematocrit (Bld) [Volume fraction] 21.8 % Low 38.8-50.0 [facility] Comment on above: Performed By: #### D IFF CBC, BMP #### [facility] [address] Hemoglobin (Bld) [Mass/Vol] 7.3 g/dL Low 13.0-17.0 [facility] Comment on above: Performed By: #### D IFF CBC, BMP #### [facility] [address] [place] [address] [place] Lymphocytes/100 WBC (Bld) 20 % Normal 18-42 [facility] Comment on above: Performed By: #### D IFF CBC, BMP #### [facility] [address] Macrocytosis Slight Normal [facility] Comment on above: Performed By: #### D IFF CBC, BMP #### [facility] [address] MCH (RBC) [Entitic mass] 31.4 pg Normal 27.5-35.2 [facility] Comment on above: Performed By: #### D IFF CBC, BMP #### [facility] [address] MCV (RBC) [Entitic vol] 93.5 fL Normal 83.5-101 [facility] Comment on above: Performed By: #### D IFF CBC, BMP #### [facility] [address] Mean Corpuscular HGB Conc 33.5 g/dL Normal 32.5-35.6 [facility] Comment on above: Performed By: #### D IFF CBC, BMP #### [address] Metamyelocytes 1 % High 0-0 [facility] Comment on above: Performed By: #### D IFF CBC, BMP #### [address] Microcytosis Slight Normal [facility] Comment on above: Performed By: #### D IFF CBC, BMP #### [address] Monocytes/100 WBC (Bld) 28.42 % High 0.00-20.00 [facility] Comment on above: Result Comment: For adults in ED, MDW > 20.0 may be associated with a higher risk of sepsis during the first 12 hrs of hospital admission The predictive value of MDW for identifying sepsis in patients with hematological abnormalities has not been established Performed By: #### D IFF CBC, BMP #### [facility] [address] [place] [address] [place] Monocytes/100 WBC (Bld) 17 % High 2-11 [facility] Comment on above: Performed By: #### D IFF CBC, BMP #### [facility] [address] [place] [address] Ovalocytes Slight Normal [facility] Comment on above: Performed By: #### D IFF CBC, BMP #### [address] Platelet Estimate Decreased Normal Normal [facility] Comment on above: Performed By: #### D IFF CBC, BMP #### [facility] [address] [place] [address] Platelet mean volume (Bld) [Entitic vol] 13.0 fL High 6.6-10.1 [facility] Comment on above: Performed By: #### D IFF CBC, BMP #### [address] Platelet Morphology Normal Normal Normal [facility] Comment on above: Result Comment: PERF ORMED BY: [place] [address] PATHOLOGIST TWISTER TENDER XAVI ZAIDI M.D. Performed By: #### D IFF CBC, BMP #### [address] Platelets (Bld) [#/Vol] 70 10*3/uL Low 150-450 [facility] Comment on above: Performed By: #### D IFF CBC, BMP #### [address] Poikilocytosis Slight Normal [facility] Comment on above: Performed By: #### D IFF CBC, BMP #### [facility] [address] [place] [address] Polychromasia Slight Normal [facility] Comment on above: Performed By: #### D IFF CBC, BMP #### [address] RBC (Bld) [#/Vol] 2.33 10*6/uL Low 3.90-5.60 [facility] Comment on above: Performed By: #### D IFF CBC, BMP #### [facility] [address] [place] [address] Segmented neutrophils/100 WBC (Bld) 56 % Normal 50-70 [facility] Comment on above: Performed By: #### D IFF CBC, BMP #### [facility] [address] [place] [address] Stomatocytes Slight Normal [facility] Comment on above: Performed By: #### D IFF CBC, BMP #### [facility] [address] [place] [address] [place] WBC (Bld) [#/Vol] 2.9 10*3/uL Low 4.1-10.5 [facility] Comment on above: Performed By: #### D IFF CBC, BMP #### [facility] [address] [place] [address] [place] WBC (Bld) [#/Vol] 3.5 10*3/uL Low 4.1-10.5 [facility] Comment on above: Performed By: #### D IFF CBC, BMP #### [facility] [address] [place] [address] [facility] ECG 12 lead ECGon 10-17-2023 ECG 12 lead ECG [facility] [place] [address] [place] [address] Electrocardiograph Report Signed Patient: Sandip Broussard MR#: [id number] : 1940 Acct:[id number] Age/Sex: 82 / M ADM Date: 10/17/23 Loc: ER Room: Type: [facility] ER Attending Dr: Ordering Provider: Caryl [...] By Deacon Bucio MD 10/19/23 1201 Normal [facility] ECG 12 lead ECG [facility] [place] [address] [place] [address] Electrocardiograph Report Signed Patient: Sandip Broussard MR#: [id number] : 1940 Acct:[id number] Age/Sex: 82 / M ADM Date: 10/17/23 Loc: ER Room: Type: [facility] ER Attending Dr: Ordering Provider: Caryl [...] , age undetermined Inferior injury pattern ACUTE [place] / STEMI Consider right ventricular involvement in acute inferior infarct Abnormal ECG No previous ECGs available Confirmed by [id number] on 10/19/2023 12:01:17 PM Referred By: Electronically Signed By:ELENA BUCIO MD [facility] Transcribed By: MUS Signed By Deacon Bucio MD 10/19/23 1201 Normal [facility] Eosinophils Auto (Bld) [#/Vo l]Ordered By: Caryl Marie on 10-17-2023 Eosinophils (Bld) [#/Vol] N/A [facility] Eosinophils/100 WBC Auto (Bl d)Ordered By: Caryl Mraie on 10-17-2023 Eosinophils/100 WBC (Bld) N/A [facility] Eosinophils/100 WBC Manual c nt (Bld)Ordered By: Caryl Marie on 10-17-2023 Eosinophils/100 WBC (Bld) 1 % 1-3 [facility] Erythrocyte distribution wid th Auto (RBC) [Ratio]Ordered By: Caryl Marie on 10-17-2023 Erythrocyte distribution width (RBC) [Ratio] 23.0 % 12.0-14.8 [facility] Giant platelets/100 leukocyt es [Ratio] in Blood by Manual countOrdered By: Caryl Marie on 10-17-2023 Giant platelets/100 WBC Manual cnt (Bld) [Ratio] 2 /100{WBC} [facility] Glucose [Mass/volume] in Ser um or PlasmaOrdered By: Caryl Marie on 10-17-2023 Glucose [Mass/Vol] 202 mg/dL 70-100 [facility] Comment on above: ADA recommended refe rence rangeRandom Glucose Reference Range is dependent on time and content of last meal. Glucose of more than 200 mg/dL in a nonstressed, ambulatory subject supports the diagnosis of Diabetes Mellitus. Hematocrit Auto (Bld) [Volum e fraction]Ordered By: Caryl Marie on 10-17-2023 Hematocrit (Bld) [Volume fraction] 21.8 % 38.8-50.0 [facility] Hemoglobin [Mass/volume] in BloodOrdered By: Caryl Marie on 10-17-2023 Hemoglobin (Bld) [Mass/Vol] 7.3 g/dL 13.0-17.0 [facility] Leukocytes [#/volume] correc iban for nucleated erythrocytes in Blood by Automated counOrdered By: Caryl Marie on 10-17-2023 WBC corrected for nucl RBC Auto (Bld) [#/Vol] 2.9 10*3/uL 4.1-10.5 [facility] Lymphocytes Auto (Bld) [#/Vo l]Ordered By: Caryl Marie on 10-17-2023 Lymphocytes (Bld) [#/Vol] N/A [facility] Lymphocytes/100 WBC Auto (Bl d)Ordered By: Caryl Marie on 10-17-2023 Lymphocytes/100 WBC (Bld) N/A [facility] Lymphocytes/100 WBC Manual c nt (Bld)Ordered By: Caryl Marie on 10-17-2023 Lymphocytes/100 WBC (Bld) 20 % 18-42 [facility] MCH Auto (RBC) [Entitic mass ]Ordered By: Caryl Marie on 10-17-2023 MCH (RBC) [Entitic mass] 31.4 pg 27.5-35.2 [facility] MCHC Auto (RBC) [Mass/Vol]Or dered By: Caryl Marie on 10-17-2023 MCHC (RBC) [Mass/Vol] 33.5 g/dL 32.5-35.6 [facility] MCV Auto (RBC) [Entitic vol] Ordered By: Caryl Marie on 10-17-2023 MCV (RBC) [Entitic vol] 93.5 fL 83.5-101 [facility] Macrocytes LM Ql (Bld)Ordere d By: Caryl Marie on 10-17-2023 Macrocytes Ql (Bld) Slight [facility] Metamyelocytes/100 WBC Manua l cnt (Bld)Ordered By: Caryl Marie on 10-17-2023 Metamyelocytes/100 WBC (Bld) 1 % 0-0 [facility] Microcytes LM Ql (Bld)Ordere d By: Caryl Marie on 10-17-2023 Microcytes Ql (Bld) Slight [facility] Monocyte distribution width [Entitic volume] in Blood by AutomatedOrdered By: Caryl Marie on 10-17-2023 Monocyte distribution width Auto (Bld) [Entitic vol] 28.42 % 0.00-20.00 [facility] Comment on above: For adults in ED, MD W > 20.0 may be associated with a higher risk of sepsis during the first 12 hrs of hospital admissionThe predictive value of MDW for identifying sepsis in patients with hematological abnormalities has not been established Monocytes Auto (Bld) [#/Vol] Ordered By: Caryl Marie on 10-17-2023 Monocytes (Bld) [#/Vol] N/A [facility] Monocytes/100 WBC Auto (Bld) Ordered By: Caryl Marie on 10-17-2023 Monocytes/100 WBC (Bld) N/A [facility] Monocytes/100 WBC Manual cnt (Bld)Ordered By: Caryl Marie on 10-17-2023 Monocytes/100 WBC (Bld) 17 % 2-11 [facility] Neutrophils Auto (Bld) [#/Vo l]Ordered By: Caryl Marie on 10-17-2023 Neutrophils (Bld) [#/Vol] N/A [facility] Neutrophils/100 WBC Auto (Bl d)Ordered By: Caryl Marie on 10-17-2023 Neutrophils/100 WBC (Bld) N/A [facility] No Panel InformationOrdered By: Caryl Marie on 10-17-2023 Estimated GFR (CKD-EPI) 32.696 mL/Min [facility] Creatinine Clearance (Chem 29.51 [facility] Nucleated erythrocytes [Pres ence] in Blood by Automated countOrdered By: Caryl Marie on 10-17-2023 Nucleated RBC Auto Ql (Bld) N/A [facility] Ovalocyte detectionOrdered B y: Caryl Marie on 10-17-2023 Ovalocytes LM Ql (Bld) Slight [facility] Platelet adequacy [Presence] in Blood by Light microscopyOrdered By: Caryl Marie on 10-17-2023 Platelets LM Ql (Bld) Decreased Normal [facility] Platelet mean volume Auto (B ld) [Entitic vol]Ordered By: Caryl Marie on 10-17-2023 Platelet mean volume (Bld) [Entitic vol] 13.0 fL 6.6-10.1 [facility] Platelet morphology finding [Identifier] in BloodOrdered By: Caryl Marie on 10-17-2023 Platelet morphology finding Nom (Bld) Normal Normal [facility] Platelets Auto (Bld) [#/Vol] Ordered By: Caryl Marie on 10-17-2023 Platelets (Bld) [#/Vol] 70 10*3/uL 150-450 [facility] Poikilocytosis [Presence] in Blood by Light microscopyOrdered By: Caryl Marie on 10-17-2023 Poikilocytosis LM Ql (Bld) Slight [facility] Polychromasia [Presence] in Blood by Light microscopyOrdered By: Caryl Marie on 10-17-2023 Polychromasia LM Ql (Bld) [facility] Potassium [Moles/volume] in Serum or PlasmaOrdered By: Caryl Marie on 10-17-2023 Potassium [Moles/Vol] 4.0 mmol/L 3.5-5.1 [facility] RBC Auto (Bld) [#/Vol]Ordere d By: Caryl Marie on 10-17-2023 RBC (Bld) [#/Vol] 2.33 10*6/uL 3.90-5.60 [facility] RBC morphologyOrdered By: Chavo Marie on 10-17-2023 RBC morphology finding Nom (Bld) N/A [facility] Red blood cell stomatocyte d etectionOrdered By: Caryl Marie on 10-17-2023 Stomatocytes LM Ql (Bld) Slight [facility] Segmented neutrophils/100 WB C Manual cnt (Bld)Ordered By: Caryl Marie on 10-17-2023 Segmented neutrophils/100 WBC (Bld) 56 % 50-70 [facility] Serum or plasma anion gap de terminationOrdered By: Caryl Marie on 10-17-2023 Anion gap [Moles/Vol] 14.8 mmol/L 6.0-15.0 [facility] Sodium [Moles/volume] in Ser um or PlasmaOrdered By: Caryl Marie on 10-17-2023 Sodium [Moles/Vol] 139 mmol/L 136-145 [facility] Troponin I High Sensitivityo n 10-17-2023 Troponin I High Sensitivity 35.1 pg/mL High 0.0-20.0 [facility] Comment on above: Result Comment: PERF ORMED BY: [place] [address] PATHOLOGIST TWISTER TENDER XAVI ZAIDI M.D. Performed By: #### H S TROP #### [address] Troponin I.cardiac [Mass/vol ume] in Serum or Plasma by Detection limit <= 0.01 ng/Ordered By: Caryl Marie on 10-17-2023 Troponin I.cardiac DL <= 0.01 ng/mL [Mass/Vol] 35.1 pg/mL 0.0-20.0 [facility] Urea nitrogen [Mass/volume] in Serum or PlasmaOrdered By: Caryl Marie on 10-17-2023 Urea nitrogen [Mass/Vol] 49 mg/dL 7-25 [facility] WBC Auto (Bld) [#/Vol]Ordere d By: Caryl Marie on 10-17-2023 WBC (Bld) [#/Vol] 3.5 10*3/uL 4.1-10.5 [facility] 36on 10-15-2023 36 Regarding labs on [...] supplements? Spoke with patient's . She said [facility] lab faxed results to Dr. Barton. She said patient is not c/o increased SOB or LE edema. Says he's eating and drinking fine now. He has follow up in December 2023, and saw his event planner yesterday. Normal [facility] 36 Potassium continues to improve, Renal function stable- is not worsening BNP remains elevated- continue all CHF meds and regime. Normal [facility] 36on 10-14-2023 36 [facility] lab called to report a critical BNP of 4020. Prior BNP on 09/28 was 3551. Normal [facility] Telephoneon 10-14-2023 Telephone [id number] Sandip Broussard 1940 M Date Provider Department Center 10/14/2023 120-KAREN ZUÑIGA 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) drug therapy Your Care Team Attending Physician - Jacquelin Barton MD Primary Care Physician - Jacquelin Barton MD This Is Your Medications List Misc Prescription (Freestyle Carmen 2 Flash Glucose Monitoring 14 Day System (Sensor)) Misc Prescription (Freestyle Carmen Flash 2 Glucose Monitoring 14 Day System ([place])) Misc Prescription (Misc DME Prescription) aspirin (aspirin [...] PM EDT With: Jacquelin Barton MD Where: [facility] Invalid Interpretation Code [address] [place] [address]- \.br\ Friday 2:00 PM EDT \.br\ With:\.br\ Where: [facility] Office Visiton 10-10-2023 Follow-up visit [id number] Sandip Broussard 1940 M Date Provider Department Center 10/10/2023 KAREN SHEIKH DONNIE Montoya Family History Problem Relation Age of Onset Hypertension Mother Stroke Father Breast cancer Sister Family Status - Relation Status Age at Mother Father Sister Level of Service:54317 ID OFFICE/OUTPATIENT ESTABLISHED LOW MDM 20 MIN [facility] ED Note-Physicianon 10-09-19 ED Note-Physician [id number] .00TIFF Normal [facility] Consultation Noteon 10-08-19 Consultation Note [id number]#1 .00TIFF Normal [facility] ED Note-Physicianon 10-03-19 ED Note-Physician [id number] .00TIFF Normal [facility] ED Note-Physician [id number] .00TIFF [facility] Reportson 09-30-2023 Lab Reports [id number] .00TIFF [facility] RAD - MISCon 09-30-2023 RAD - MISC [id number] .00TIFF [facility] Office Visiton 09-29-2023 Follow-up visit [id number] Sandip Broussard 1940 M Date Provider Department Center 09/29/2023 SHENG BREGMAN DONNIE Montoya Family History Problem Relation Age of Onset Hypertension Mother Stroke Father Breast cancer Sister Family Status - Relation Status Age at Mother Father Sister Level of Service:83765 ID OFFICE/OUTPATIENT ESTABLISHED HIGH MDM 40 MIN [facility] 3609-26-2023 36 Patient's made aware to hold bumex over the weekend and have repeat labs before 3:15pm apt with Dr. Gomez on Friday, 09/28. Orders faxed to [facility]. [facility] 3609-23-2023 36 [facility] lab called with critical lab values: ProBNP is 2604, BUN is 87. Normal [facility] Ambulatory Visit Summaryon 0 09-22-2023 Ambulatory Visit [...] Flash 2 Glucose Monitoring 14 Day System ([place])) Misc Prescription (Misc DME Prescription) aspirin (aspirin [...] PM EDT With: Jacquelin Barton MD Where: [facility] [place] Normal [address] [place] [address]- \.br\ You Need to Schedule the Following Appointments\.br\ Follow Up with Elena DO MD, URL When: \.br\ Comments:\.br\ 6 mos (no labs)\.br\ Where:\.br\ [facility] [address]\.br\ [place] [address]-\.br\ [id number]\.br\ Medications\.br\ What How Much When Why Instructions\.br\ Changed terazosin (terazosin 5 mg Cap) 1 Capsules By Mouth Once a day (at bedtime) Pickup at [facility] [id number]\.br\ Unchanged aspirin (aspirin 81 mg Oral EC [...] Flash 2 Glucose Monitoring 14 Day System ([place])) See instructions 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 \.br\ Take tnpz-qyz-gxrjgje and prescription medicines only as told by your health care provider. Avoid certain medicines, such as decon [facility] Patient Educationon 09-22-19 Patient Education [...] these instructions at home: Medicines ? Take jaxj-nwk-blyodqz and prescription medicines only as told by [...] provider. Document Revised: 04/04/2021 Document Reviewed: 04/04/2021 [employer] Patient Education ? 2022 [employer]. [facility] 36on 09-16-2023 36 Pro BNP is 4001 [facility] 36 Patient and his stopped by the office today to give you an update. His stomach is very red with dry skin. I called Dr. Barton and he recommended an OTC steroid cream. 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 Patient and his made aware. His weight was 212# today in the office. Would you like him to change increased dose of bumex and potassium? I also ordered BNP since I couldn't find a recent one for him. Please advise. Thanks. [facility] [id number] .00TIFF [facility] 36on 09-11-2023 36 Patient's alonzo d [...] 25mg daily. Any recommendations? Please advise. Normal [facility] Telephoneon 09-11-2023 Telephone [id number] Sandip Broussard 1940 M Date Provider Department Center 09/11/2023 SHENG BERGMAN DONNIE Montoya Family History Problem Relation Age of Onset Hypertension Mother Stroke Father Breast cancer Sister Family Status - Relation Status Age at Mother Father Sister Normal [facility] Retail - Clinical Noteon Retail - Clinical Note [id number] .00TIFF Normal [facility] Office Visiton 08-29-2023 Follow-up visit [id number] Sandip Broussard 1940 M [facility] Provider Department Center 08/29/2023 SHENG BERGMAN DONNIE Montoya Family History Problem Relation Age of Onset Hypertension Mother Stroke Father Breast cancer Sister Family Status - Relation Status Age at Mother Father Sister Level of Service:[id number] ID OFFICE/OUTPATIENT ESTABLISHED LOW MDM 20 MIN Normal [facility] Basic Metabolic Profon 08-19 Anion gap [Moles/Vol] 13 mmol/L Normal 9-17 [facility] Comment on above: Performed By: #### C DP, BMP #### [facility] [address] [place] [address] Social Work Nurse: Josie Castro MD BUN/CRE Ratio 17 Normal - [facility] Comment on above: Performed By: #### C DP, BMP #### [facility] [address] [place] [address] Social Work Nurse: Josie Castro MD Calcium [Mass/Vol] 8.9 mg/dL Normal 8.6-10.4 [facility] Comment on above: Performed By: #### C DP, BMP #### [facility] [address] [place] [address] Social Work Nurse: Josie Castro MD Chloride [Moles/Vol] 101 mmol/L Normal 98-107 [facility] Comment on above: Performed By: #### C DP, BMP #### [facility] [address] [place] [address] Social Work Nurse: Josie Castro MD CO2 [Moles/Vol] 29 mmol/L Normal 20-31 [facility] Comment on above: Performed By: #### C DP, BMP #### [facility] [address] [place] [address] Social Work Nurse: Josie Castro MD Creatinine [Mass/Vol] 1.6 mg/dL High 0.7-1.2 [facility] Comment on above: Performed By: #### C DP, BMP #### [facility] [address] [place] [address] Social Work Nurse: Josie Castro MD GFR/1.73 sq M.predicted among non-blacks MDRD (S/P/Bld) [Vol rate/Area] 42 mL/min/{1.73_m2} Low >60 [facility] Comment on above: Result Comment: These results [...] Performed By: #### C DP, BMP #### [facility] [address] [place] [address] Social Work Nurse: Josie Castro MD Glucose [Mass/Vol] 103 mg/dL High 70-99 [facility] Comment on above: Performed By: #### C DP, BMP #### [facility] [address] [place], [place] [id number] Social Work Nurse: Josie Castro MD Potassium [Moles/Vol] 4.3 mmol/L Normal 3.7-5.3 [facility] Comment on above: Performed By: #### C DP, BMP #### [facility] [address] [place], [place] [id number] Social Work Nurse: Josie Castro MD Sodium [Moles/Vol] 143 mmol/L Normal 135-144 [facility] Comment on above: Performed By: #### C DP, BMP #### [facility] [address] [place] [id number] Social Work Nurse: Josie Castro MD Urea nitrogen [Mass/Vol] 27 mg/dL High 8- [facility] Comment on above: Performed By: #### C DP, BMP #### [facility] [address] [place] [address] Social Work Nurse: Josie Castro MD CBC with Diffon 08-19-2023 Abs. Bands 0.07 k/uL Normal 0.0-1.0 [facility] Comment on above: Performed By: #### C DP, BMP #### [facility] [address] [place] [id number] Social Work Nurse: Josie Castro MD Abs. Basophil Normal 0.0-0.2 [facility] [place] Comment on above: Performed By: #### C DP, BMP #### [facility] [address] [id number] Social Work Nurse: Josie Castro MD Abs.Imm.Granulocyte Normal 0.00-0.30 [facility] [place] Comment on above: Performed By: #### C DP, BMP #### [facility] [address] [id number] Social Work Nurse: Josie Castro MD Abs.Neutrophil (Seg) 0.74 k/uL Low 2.1-6.5 [facility] Comment on above: Performed By: #### C DP, BMP #### [facility] [address] [place] [address] Social Work Nurse: Josie Castro MD Bands 3 % Normal 0-10 [facility] [place] Comment on above: Performed By: #### C DP, BMP #### [facility] [address] [place] [address] Social Work Nurse: Josie Castro MD Basophil Normal 0-2 [facility] [place] Comment on above: Performed By: #### C DP, BMP #### [facility] [address] [place] [address] Social Work Nurse: Josie Castro MD Eosinophils (Bld) [#/Vol] 0.02 10*3/uL Normal 0.0-0.4 [facility] Comment on above: Performed By: #### C DP, BMP #### [facility] [address] [place] [address] Social Work Nurse: Josie Castro MD Eosinophils/100 WBC (Bld) 1 % Normal 0-5 [facility] Comment on above: Performed By: #### C DP, BMP #### [facility] [address] [place] [address] Social Work Nurse: Josie Castro MD Immature Granulocyte Normal 0 [facility] Comment on above: Performed By: #### C DP, BMP #### [facility] [address] [place] [address] Social Work Nurse: Josie Castro MD Lymphocytes (Bld) [#/Vol] 1.03 10*3/uL Normal 1.0-4.8 [facility] Comment on above: Performed By: #### C DP, BMP #### [facility] [address] [place] [address] Social Work Nurse: Josie Castro MD Lymphocytes/100 WBC (Bld) 45 % High 13-44 [facility] Comment on above: Performed By: #### C DP, BMP #### [facility] [address] [place], [place] [id number] Social Work Nurse: Josie Castro MD Monocytes (Bld) [#/Vol] 0.44 10*3/uL Normal 0.0-1.0 [facility] Comment on above: Performed By: #### C DP, BMP #### [facility] [address] [place], [place] [id number] Social Work Nurse: Josie Castro MD Monocytes/100 WBC (Bld) 19 % High 5-9 [facility] Comment on above: Performed By: #### C DP, BMP #### [facility] [address] [place] [address] Social Work Nurse: Josie Castro MD Morphology Edmundo (Bld) [Interp] Decreased Platelets Normal [facility] Comment on above: Result Comment: FEW LARGE PLATELETS Manual Differential Performed MODERATE ANISOCYTOSIS Performed By: #### C DP, BMP #### [facility] [address] [place] [address] Social Work Nurse: Josie Castro MD Neutrophil (Seg) 32 % Low 39-75 [facility] Comment on above: Performed By: #### C DP, BMP #### [facility] [address] [place] [address] Social Work Nurse: Josie Castro MD Erythrocyte distribution width (RBC) [Ratio] 22.3 % High 12.1-15.2 [facility] Comment on above: Performed By: #### C DP, BMP #### [facility] [address] [place] [address] Social Work Nurse: Josie Castro MD Hematocrit (Bld) [Volume fraction] 24.6 % Low 41.0-53.0 [facility] Comment on above: Performed By: #### C DP, BMP #### [facility] [address] [place] [address] Social Work Nurse: Josie Castro MD Hemoglobin (Bld) [Mass/Vol] 7.8 g/dL Critically low 13.5-17.5 [facility] Comment on above: Performed By: #### C DP, BMP #### [facility] [address] [place] [address] Social Work Nurse: Josie Castro MD MCH (RBC) [Entitic mass] 31.0 pg Normal 26.0-34.0 [facility] Comment on above: Performed By: #### C DP, BMP #### [facility] [address] [place] [address] Social Work Nurse: Josie Castro MD MCHC (RBC) [Mass/Vol] 31.7 g/dL Normal 31.0-37.0 [facility] Comment on above: Performed By: #### C DP, BMP #### [facility] [address] [id number] Social Work Nurse: Josie Castro MD MCV (RBC) [Entitic vol] 97.6 fL Normal 80.0-100.0 [facility] Comment on above: Performed By: #### C DP, BMP #### [facility] [address] [id number] Social Work Nurse: Josie Castro MD Platelet mean volume (Bld) [Entitic vol] 15.2 fL High 6.0-12.0 [facility] Comment on above: Performed By: #### C DP, BMP #### [facility] [address] [id number] Social Work Nurse: Josie Castro MD Platelets (Bld) [#/Vol] 71 10*3/uL Low 140-450 [facility] Comment on above: Performed By: #### C DP, BMP #### [facility] [address] [place], [place] [id number] Social Work Nurse: Josie Castro MD RBC (Bld) [#/Vol] 2.52 10*6/uL Low 4.50-5.90 [facility] Comment on above: Performed By: #### C DP, BMP #### [facility] [address] [place], [place] [id number] Social Work Nurse: Josie Castro MD WBC (Bld) [#/Vol] 2.3 10*3/uL Critically low 3.5-11.0 [facility] Comment on above: Performed By: #### C DP, BMP #### [facility] [address] [place], [place] [phone] Social Work Nurse: Josie Castro MD [facility] 08-04-19 [address] [facility] Case Information Case Priority: None Programs: -- Referral Source: Health And Safety Instructor Referral Reason: Care coordination Case Type: Transition [...] with hypoxia Chronic systolic congestive heart failure [facility] discharge follow-up Immunodeficiency due to drugs [...] Flash 2 Glucose Monitoring 14 Day System ([place]), See Instructions glipiZIDE 5 mg ER Tab, [...] (min): 3 Outcome: Case discussion Contact Type: technical project coordinator Contact Name: Puneet Mcelroy Notes: TCM#6- Spoke with spouse, see ft summary note. Created By: Puneet Mcelroy Date: July 29, 2023 Method: Phone call Type: Outbound Duration (min): 12 Outcome: Case discussion Contact Type: technical project coordinator Contact Name: Puneet Mcelroy Notes: TCM#5- spoke with spouse, see ft summary note. Created By: Puneet Mcelroy Date: July 22, 2023 Method: Phone call Type: Outbound Duration (min): 2 Outcome: Case discussion Contact Type: technical project coordinator Contact Name: Puneet Mcelroy Notes: TCM##4-wgt- Spoke with spouse Nicki for TCM/wgt progrtam call status update, see ft sumamry note. Created By: Puneet Mcelroy Date: July 17, 2023 Method: Phone call Type: Outbound Duration (min): 6 Outcome: Case discussion Contact Type: technical project coordinator Contact Name: Puneet Mcelroy Notes: TCM#3-wgt, spoke with spouse, Nicki for tcm call status update, see ft summary note. Created By: Puneet Mcelroy Date: July 14, 2023 Method: Phone call Type: Inbound Duration (min): 2 Outcome: Case discussion Contact Type: Spouse Contact Name: Nicki Notes: TCM#2/wgt- Spoke with spouse Nicki for TCM/wgt, see ft summary note. Crea (more content not included)... [facility] 07-30-2023 Lab Reports [id number] .00TIFF [facility] Population Healthon 07-29-19 Population Health Case Information Case Priority: None Programs: -- Referral Source: Health And Safety Instructor Referral Reason: Care coordination Case Type: Transition [...] hypoxia Chronic systolic congestive heart failure [facility] Hospital discharge follow-up Immunodeficiency due to [...] Flash 2 Glucose Monitoring 14 Day System ([place]), See Instructions glipiZIDE 5 mg ER Tab, [...] (min): 12 Outcome: Case discussion Contact Type: technical project coordinator Contact Name: Punete Mcelroy Notes: TCM#5- spoke with spouse, see ft summary note. Created By: Puneet Mcelroy Date: July 22, 2023 Method: Phone call Type: Outbound Duration (min): 2 Outcome: Case discussion Contact Type: technical project coordinator Contact Name: Puneet Mcelroy Notes: TCM##4-wgt- Spoke with spouse Nicki for TCM/wgt progrtam call status update, see ft sumamry note. Created By: Puneet Mcelroy Date: July 17, 2023 Method: Phone call Type: Outbound Duration (min): 6 Outcome: Case discussion Contact Type: technical project coordinator Contact Name: Puneet Mcerloy Notes: TCM#3-wgt, spoke with spouse, Nicki for [...] (min): 1 Outcome: Left message-voicemail Contact Type: technical project coordinator Contact Name: Puneet Mcelroy Notes: TCM#2/wgt check- Attempted to contact patient for TCM/wgt status update, no answer, LM for retturn call. Created By: Puneet Mcelory Date: July 11, 2023 Method: Phone call Type: Outbound Duration (more content not included)... [facility] Retail - Clinical Noteon Retail - Clinical Note [id number] .00TIFF [facility] Population Healthon 07-22-20 [facility] Health Case Information Case Priority: None Programs: -- Referral Source: Health And Safety Instructor Referral Reason: Care coordination Case Type: Transition [...] hypoxia Chronic systolic congestive heart failure [facility] Hospital discharge follow-up Immunodeficiency due to [...] Flash 2 Glucose Monitoring 14 Day System ([place]), See Instructions glipiZIDE 5 mg ER Tab, [...] (min): 2 Outcome: Case discussion Contact Type: technical project coordinator Contact Name: Puneet Mcelroy Notes: TCM##4-wgt- Spoke with spouse Nicki for TCM/wgt progrtam call status update, see critical access hospital note. Created By: Puneet Mcelroy Date: July 17, 2023 Method: Phone call Type: Outbound Duration (min): 6 Outcome: Case discussion Contact Type: technical project coordinator Contact Name: Puneet Mcelroy Notes: TCM#3-wgt, spoke with spouse, Nicki for tcm call status update, see ft summary note. Created By: Puneet Mcelroy Date: July 14, 2023 Method: Phone call Type: Inbound Duration (min): 2 Outcome: Case discussion Contact Type: Spouse Contact Name: Nicki Notes: TCM#2/wgt- Spoke with spouse Nicki for TCM/wgt, see ft summary note. Created By: Puenet Mcelroy Date: July 14, 2023 Method: Phone call Type: Outbound Duration (min): 1 Outcome: Left message-voicemail Contact Type: technical project coordinator Contact Name: Puneet Mcelroy Notes: TCM#2/wgt check- Attempted to contact patient for TCM/wgt status update, no answer, LM for retturn call. Created By: Puneet Mcelroy Date: July 11, 2023 Method: Phone call Type: Outbound Duration (min): 8 Outcome: Case discussion Contact Type: technical project coordinator Contact Name: Puneet Mcelroy Notes: TCM#1- Spoke with spouse for initial TCM program call status update, see ft summary note. Created By: Puneet Mcelroy [facility] Office Visiton 07-17-2023 Follow-up visit [id number] Sandip Broussard 1940 M Date Provider Department Center 07/17/2023 [facility] Family History Problem Relation Age of Onset Hypertension Mother Stroke Father Breast cancer Sister Family Status - Relation Status Age at Mother Father Sister Level of Service:[id number] ID OFFICE/OUTPATIENT ESTABLISHED MOD MDM 30 MIN Reason for Visit and Comments: Hospital Follow-up [832] Normal [facility] Population Health 07-17-20 Population Health Case Information Case Priority: None Programs: -- Referral Source: Health And Safety Instructor Referral Reason: Care coordination Case Type: Transition [...] hypoxia Chronic systolic congestive heart failure [facility] Hospital discharge follow-up Immunodeficiency due to [...] Flash 2 Glucose Monitoring 14 Day System ([place]), See Instructions glipiZIDE 5 mg ER Tab, [...] (min): 6 Outcome: Case discussion Contact Type: technical project coordinator Contact Name: Puneet Mcelroy Notes: DENNIS#3-wgt, [...] (min): 1 Outcome: Left message-voicemail Contact Type: technical project coordinator Contact Name: Puneet Mcelroy Notes: TCM#2/wgt check- Attempted to contact patient for TCM/wgt status update, no answer, LM for retturn call. Created By: Puneet Mcelroy Date: July 11, 2023 Method: Phone call Type: Outbound Duration (min): 8 Outcome: Case discussion Contact Type: technical project coordinator Contact Name: Puneet Mcelroy Notes: TCM#1- Spoke with spouse for initial TCM program call status update, see ft summary note. Created By: Puneet Mcelroy [facility] ED Note-Physicianon 07-16-20 ED Note-Physician [id number] .00TIFF [facility] Outside IP Hospital Correspo ndenceon 07-16-2023 Outside Hospital Correspondence [id number] .00TIFF [facility] Physician Referralon 023 Physician Referral [id number]# 1.00TIFF [facility] RAD - MISCon 07-16-2023 RAD - MISC [id number] .00TIFF [facility] Family Medicine Office/Clini c Noteon 07-15-2023 Family Medicine Office/Clinic Note HPI Staff Sandip is an 82 year old male presenting for follow up anemia Hospital: [place] Admission date: 07/08 Discharge date: Symptoms the [...] documented 3008F (more content not included)... [facility] Comment on above: Result Comment: [...] numbers. This can be done either in Vincentian [place] or metric measurements. Note that charts and online BMI calculators are available to help you find your BMI quickly and easily without having to do these calculations yourself. To calculate your BMI in Vincentian ([place] measurements: 1. Measure your weight in [...] for Disease Control and Prevention: www.cdc.gov ? [place] Heart Association: www.heart.org ? National Heart, Lung, and Blood Pandora: www.nhlbi.nih.gov Summary ? Body mass index (BMI) is a number that is calculated from a person's weight and height. ? BMI may help estimate how much of a person's weight is composed of fat. BMI can help identify those who may be at higher risk for certain medical problems. ? BMI can be measured using Vincentian measurements or metric measurements. ? BMI charts are used to identify whether you are underweight, normal weight, overweight, or obese. This information is not intended to replace advice given to you by your health care provider. Make sure you discuss any questions you have with your health care provider. Document Revised: 04/05/2020 Document Reviewed: 02/11/2020 [employer] Patient Education ? 2022 [employer]. [facility] 07-14-[address] [facility] Case Information Case Priority: None Programs: -- Referral Source: Health And Safety Instructor Referral Reason: Care coordination Case Type: Transition [...] refills, Still taking, not as prescribed: Per [facility] D/C 07/10, patient to take 1 mg QAM colchicine 0.6 mg Tab, 0.6 mg= 1 tab(s), Oral, TID, 1 refills, Not taking: per [facility] d/c 07/10, do not take Farxiga 10 mg oral tablet, 10 mg= 1 tab(s), Oral, Daily, 1 refills febuxostat, 40 mg, Oral, Daily Freestyle Carmen 2 Flash Glucose Monitoring 14 Day System (Sensor), See Instructions Freestyle Carmen Flash 2 Glucose Monitoring 14 Day System ([place]), See Instructions glipiZIDE 5 mg ER Tab, 5 mg= 1 tab(s), Oral, BID, 1 refills lisinopril 10 mg Tab, See Instructions, Still taking, not as prescribed: per [facility] d/c 07/10, dose decreased, take 2.5 mg QD metolazone 2.5 mg Tab, 2.5 mg= 1 tab(s), Oral, Daily, 1 refills, Not taking: per [facility] d/c 07/10- do not take metoprolol 25 mg ER Tab, 12.5 mg= 0.5 tab(s), Oral, Daily, 1 refills Misc DME Prescription, See Instructions omeprazole 40 mg Cap-DR, 40 mg= 1 cap(s), Oral, Daily, 1 refills Potassium Chloride (Avo-Qndi-Gid M20) 20 mEq oral tablet, extended release, 20 mEq= 1 tab(s), Oral, BID, 1 refills, Not taking: per [facility] d/c 07/10, do not take [...] (min): 1 Outcome: Left message-voicemail Contact Type: technical project coordinator Contact Name: Puneet Mcelroy Notes: TCM#2/wgt check- Attempted to contact patient for TCM/wgt status update, no answer, LM for retturn call. Created By: Puneet Mcelroy Date: July 11, 2023 Method: Phone call Type: Outbound Duration (min): 8 Outcome: Case discussion Contact Type: technical project coordinator Contact Name: Puneet Mcelroy Notes: TCM#1- Spoke with spouse for initial TCM program call status update, see ft summary note. Created By: Puneet Mcelroy [facility] Pre-Visit Planningon 07-14- 023 Pre-Visit Planning - From: Karen Frye To: Jacquelin Barton MD; Sent: 07/11/2023 11:03:29 EST Subject: Pre-Visit Planning Due Date/Time: 07/11/2023 11:03:00 EST Caller Name: SANDIP BROUSSARD; Caller Number: H , M Mo Dr. Barton. During a pre-visit planning chart [...] feel free to contact me at extension [phone]. Thank you! Karen Frye LPN From: Jacquelin Barton MD To: aKren Frye; Sent: 07/14/2023 12:29:52 EST Subject: RE: Pre-Visit Planning Caller Name: SANDIP BROUSSARD; Caller Number: H , -Immunodeficiency due to drugs [address] Pre-Visit Planning - From: Karen Frye To: Jacquelin Barton MD; Sent: 07/11/2023 10:52:44 EST Subject: Pre-Visit Planning Due Date/Time: 07/11/2023 10:52:00 EST Caller Name: SANDIP BROUSSARD; Caller Number: H , M Mo Dr. Barton. During a pre-visit planning chart [...] feel free to contact me at extension [phone]. Thank you! Karen Frye LPN From: Jacquelin Barton MD To: Karen Frye; Sent: 07/14/2023 12:28:56 EST Subject: RE: Pre-Visit Planning Caller Name: SANDIP BROUSSARD; Caller Number: H , M -Chronic respiratory failure with hypoxia Normal [address] [place] [address] Pre-Visit Planning - From: Karen Frye To: Jacquelin Barton MD; Sent: 07/11/2023 10:36:38 EST Subject: Pre-Visit Planning Due Date/Time: 07/11/2023 10:36:00 EST Caller Name: SANDIP BROUSSARD; Caller Number: H , M Mo Dr. Barton. During a pre-visit planning chart [...] BROUSSARD; Caller Number: , -Morbid obesity Normal [address] [place] [address] 07-11-[address] [facility] Case Information Case Priority: None Programs: -- Referral Source: Health And Safety Instructor Referral Reason: Care coordination Case Type: Transition [...] refills, Still taking, not as prescribed: Per [facility] D/C 07/10, patient to take 1 mg QAM colchicine 0.6 mg Tab, 0.6 mg= 1 tab(s), Oral, TID, 1 refills, Not taking: per [facility] /07/10, do not take Farxiga 10 mg oral tablet, 10 mg= 1 tab(s), Oral, Daily, 1 refills febuxostat, 40 mg, Oral, Daily Freestyle Carmen 2 Flash Glucose Monitoring 14 Day System (Sensor), See Instructions Freestyle Carmen Flash 2 Glucose Monitoring 14 Day System ([place]), See Instructions glipiZIDE 5 mg ER Tab, 5 mg= 1 tab(s), Oral, BID, 1 refills lisinopril 10 mg Tab, See Instructions, Still taking, not as prescribed: per [facility] 07/10, dose decreased, take 2.5 mg QD metolazone 2.5 mg Tab, 2.5 mg= 1 tab(s), Oral, Daily, 1 refills, Not taking: per [facility] 07/10- do not take metoprolol 25 mg ER Tab, 12.5 mg= 0.5 tab(s), Oral, Daily, 1 refills Misc DME Prescription, See Instructions omeprazole 40 mg Cap-DR, 40 mg= 1 cap(s), Oral, Daily, 1 refills Potassium Chloride (Njp-Wtbh-Bsf M20) 20 mEq oral tablet, extended release, 20 mEq= 1 tab(s), Oral, BID, 1 refills, Not taking: per [facility] d/c 07/10, do not take [...] f/u with PCP, Dr. Barton 07/15 @ 8458 Did you understand your discharge instructions? yes [...] with patient: (more content not included)... [facility] 36on 05-28-2023 36 Wrong dosage Normal [facility] RAD - MISCon 05-13-2023 [facility] [id number] .00TIFF [facility] Family Medicine Office/Clini c Noteon 04-21-2023 Family [...] last blood transfusion was today at [facility]. He was seen by his oncologist last week and the week before. He is seeing Dr. Humphrey in [place]. His oncologist is keeping him on a [...] with voice recognition artificial intelligence software, specifically PeopleGoal, Zzish and or Gigwalk. Substitutions may have occurred due to the inherent limitations of voice recognition and artificial intelligence software. ATTESTATION: Documentation services were performed after patient or guardian consented to allow [employer] to record this visit. VIRGEN coverage specialist and provider reviewed before signing. VIRGEN: [...] Historical No (more content not included)... [facility] Comment on above: Result Comment: Elec tronically Signed By: Jacquelin Barton MD\.br\Date and Time Signed: 04/21/23 10:37 EDT\.br\Electronically Co-Signed By: Itzel Morrow\.br\Date and Time Co-Signed: 04/16/23 16:56 EDT Consent for Flu Vaccineon Consent for Flu Vaccine [id number] .00CD:127 [facility] Ambulatory Visit Summaryon 0 04-16-2023 [...] Flash 2 Glucose Monitoring 14 Day System ([place])) Misc Prescription (Misc DME Prescription) aspirin (aspirin [...] 40 mg Cap-DR) potassium chloride (Potassium Chloride (Tsd-Bklt-Hud M20) 20 mEq oral tablet, extended release) [...] EST With: Mick SEN, Jacquelin Davies Where: [address] \.br\ Medications\.br\ What How Much When [...] Flash 2 Glucose Monitoring 14 Day System ([place])) See instructions Primary hypertension Type 2 diabetes mellitus with diabetic nephropathy, without long-term current use of insulin Mixed hyperlipidemia Bone marrow failure Freestyle Carmen Flash Glucose Monitoring 14 Day System ([place]) \.br\ Unchanged Misc Prescription (Misc DME Prescription) See instructions One touch ultra blue test strips Use as directed to test sugars once a day \.br\ Unchanged omeprazole (omeprazole 40 mg Cap-DR) 1 Capsules By Mouth Every day\.br\ Unchanged potassium chloride (Potassium Chloride (Fxe-Jlde-Dka M20) 20 mEq oral tablet, extended release) [...] of insulin\.br\ Urge incontinence\.br\ Urinary urgency\.br\ \.br\ [facility] 04-07-2023 Outside Labs [id number] .00CD:127 [facility] 03-20-2023 Outside Labs [id number] .00CD:127 [facility] Physician Orderon 03-19-2023 Physician Order [id number]# 1.00CD:127 [facility] .Interpretation:on 3 HCV Ab IA Ql Comment Invalid Interpretation Code [facility] Comment on above: Result Comment: Not infected with HCV unless early or acute infection is suspected (which may be delayed in an immunocompromised individual), or other evidence exists to indicate HCV infection. Performed at: [address] [id number] PhD Mingo Mckeon Performed By: #### 2 [id number], [id number], [id number], [id number], [id number], [id number], [id number], [id number], [id number], [id number], [id number], [id number], [id number], [id number], [id number], [id number], 71110379, 8713633, 0553210, [id number] ####[address] [place] [address] Comp panel: Leuk/Lym [id number] n 03-18-2023 Analysis and Gating Strategy Comment Invalid Interpretation Code [facility] Comment on above: Result Comment: 8 co tete analysis with CD45/SSC gating Technical-Analysis performed at [facility], [address] [place] [address] Director: Lisa Anguiano [facility] Performed By: #### 2 289771547, 3966022818, 0122504, 9291496077, 9958597390, 908989699, 1194363, 0683897651, 3410146, 1110967, 6510040, 2740679412, 5086366, 3244148, 9016393, 75878054, 2831695, 725320356, 8685496744, 38189924, 3113727, 6716382, 0131091611 ####[facility] [address] [place] [address] Annotation comment [Interpretation] Narrative Comment Invalid Interpretation Code [facility] Comment on above: Result Comment: If m onocytosis (absolute count >= 500/uL and >= 10% of leukocytes) persists for > 3 months without secondary etiologies identified, further evaluation of a myeloid neoplasm, such as chronic myelomonocytic leukemia, is warranted if clinically indicated. Recommend clinical correlation. Performed By: #### 2 720322117, 3894933596, 1230503, 9998193393, 0054353354, 460807472, 2529200, 7595520062, 0201747, 1118636, 2282089, 0575308772, 8821392, 9037808, 2965010, 52172280, 8651357, 704406866, 2387892744, 01545317, 3481454, 5616951, 4402544173 ####[facility] [address] [place] [address] Assessment of Leukocytes Comment Invalid Interpretation Code [facility] Comment on above: Result Comment: [...] NK cells 22% Performed By: #### 2 556698429, 1500936296, 5306652, 4206972075, 4036343087, 611565805, 6373001, 0071734361, 1198303, 2956963, 6246033, 2126542390, 5175218, 2805377, 7600990, 12078954, 9712244, 292777073, 0891013391, 62502122, 2326507, 9794401, 4205493329 ####[facility] [address] [place] [address] CLINICAL INFORMATION:FIND:PT: Comment Invalid Interpretation Code [facility] Comment on above: Result Comment: A re cent CBC was not available for review at the time this report was prepared. Performed By: #### 2 307061013, 3550770048, 0817411, 0368365193, 2211750559, 032618048, 2122341, 6348207282, 1293654, 9404823, 8495270, 7186957201, 7960516, 4157399, 5235588, 27527871, 7836743, 614658768, 9801002213, 13760481, 3978667, 1563801, 5324407361 ####[facility] [address] [place] [address] Immunophenotyping study Comment Invalid Interpretation Code [facility] Comment on above: Result Comment: CD2 Normal CD3 Normal CD4 Normal CD5 Normal CD7 Normal CD8 Normal CD10 Normal CD11b Normal CD13 Normal CD14 Normal CD16 Normal CD19 Normal CD20 Normal CD33 Normal CD34 Normal CD38 Normal CD45 Normal CD56 See Text CD57 Normal CD117 Normal HLA-DR Normal KAPPA Normal LAMBDA Normal CD64 Normal Performed By: #### 2 884508544, 1534440299, 0782431, 0940362355, 6004902315, 679117279, 4809351, 0214612767, 7393728, 3130795, 9399150, 6058126897, 3708325, 7435299, 2617254, 52579720, 5280565, 905564734, 6260658661, 68697985, 6046191, 1319630, 4043604273 ####[facility] [address] [place] [address] Laboratory comment Edmundo (Report) Comment Invalid Interpretation Code [facility] Comment on above: Result Comment: Each antibody in this assay was utilized to assess for potential abnormalities of studied cell populations or to characterize identified abnormalities. This test was developed and its performance characteristics determined by [employer]. It has not been cleared or approved by the U.S. Food and Drug Administration. The FDA has determined that such clearance or approval is not necessary. This test is used for clinical purposes. It should not be regarded as investigational or for research. Performed at: -Y [facility] [place] [address] [facility] [place], [place] [id number] [facility] Silvio Gonzalez Performed at: TG [facility] [place] [address] [facility] [place] [id number] [facility] Silvio Bhumisavannah Performed By: #### 2 871989857, 2202264539, 1968875, 1644965542, 8029079023, 930175135, 6819674, 4680926979, 1943521, 6368174, 8742829, 4142410331, 9252918, 8589891, 4233258, 86823569, 3830720, 982369378, 8321364520, 56312799, 9623867, 9968996, 9480199399 ####[facility] [address] [place] [address] Pathologist interpretation (Unsp spec) [Interp] Comment Invalid Interpretation Code [facility] Comment on above: Result Comment: Aber rant monocytosis and left shifted neutrophils, see comment. Performed By: #### 2 629763959, 8318143755, 0676016, 0904519542, 9674386754, 646723090, 7541728, 1977303553, 5335704, 8131155, 1281512, 3163725448, 4189056, 2180755, 8672536, 04438111, 9912084, 618776050, 9214608366, 86109625, 6454242, 9745330, 2666773865 ####[facility] [address] [place] [address] Pathologist name Comment Invalid Interpretation Code [facility] Comment on above: Result Comment: Esdras Alexandra M.D. Performed By: #### 2 700400163, 7928673318, 4232953, 0755817011, 5422573485, 167031845, 4140580, 8936487538, 2447003, 4422901, 0299193, 0552611538, 4309959, 0335833, 4932910, 62196595, 5943611, 536112413, 8576570838, 32425479, 9953867, 4924123, 9503920560 ####[facility] [place] [address] Specimen source Nom (Unsp spec) Comment Invalid Interpretation Code [facility] Comment on above: Result Comment: Molly pheral blood Performed By: #### 2 942346977, 5466361739, 4587293, 4888487858, 3882945007, 536972538, 9533736, 0016143350, 5199615, 5969515, 2391286, 7193150855, 7826324, 9973761, 0780936, 58102368, 1884588, 534366220, 0205592837, 98802645, 8797762, 8241562, 6248917338 ####[address] [place] [address] Viable cells/100 cells (Unsp spec) Comment Invalid Interpretation Code [facility] Comment on above: Result Comment: 84% Performed By: #### 2 359936825, 4443300954, 6448915, 0596404154, 4486769375, 841315022, 3413846, 7069266501, 9335662, 5045813, 5230562, 5737984592, 7692048, 8771397, 1871779, 13279403, 9543608, 374082691, 9342927913, 52577945, 6696446, 5790047, 7638548322 ####[address] [place] [address] Copper Lvlon 03-18-2023 Copper [Mass/Vol] 73 microgram/dL Invalid Interpretation Code 69-132 [facility] Comment on above: Result Comment: This test was developed and its performance characteristics determined by [employer]. It has not been cleared or approved by the Food and Drug Administration. Detection Limit = 5 Performed at: [address] [id number] [place] Ronaldo Dao Performed By: #### 2 317706054, 6664726376, 5384439, 1067470612, 8017049643, 541901384, 3940752, 5629702896, 0372971, 1086886, 4693544, 5963945137, 9304590, 3503392, 5166486, 30591018, 1279794, 164983066, 6810798016, 85820943, 1490382, 4229095, 9682581901 ####[facility] [address] [place] [address] Flow Interp 16 or moreon Flow Interp 16 or more Performed Invalid Interpretation Code [facility] Comment on above: Result Comment: Perf ormed at: -Y [facility] [place] [address] [place], [place] [id number] [facility] Silvio Gonzalez Performed By: #### 2 477953104, 1767044779, 4939148, 3175072489, 1913661002, 076284940, 2340156, 5532143125, 9344444, 3914326, 8734501, 7746640707, 2907003, 2856198, 2889048, 92628293, 6242899, 627790871, 9637179013, 13734760, 7890041, 3395522, 1761488999 ####[facility] [address] [place] [address] Flow Marker, Firston 023 Flow Marker, First Performed Invalid Interpretation Code [facility] Comment on above: Result Comment: Perf ormed at: -Y [facility] [place] [address] [place] [id number] [facility] Silvio Gonzalez Performed By: #### 2 437928607, 4862929941, 8209405, 3296006511, 0338464555, 644496849, 1684852, 4408944760, 0130662, 7818631, 0693957, 0084615275, 4864097, 8786286, 4356266, 83806238, 5112939, 782967891, 5384505508, 64228390, 6965806, 4951629, 5506259201 ####[facility] [address] [place] [address] Flow Markers X 15on 03-18-20 23 Flow Markers X 15 Performed Invalid Interpretation Code [facility] Comment on above: Result Comment: Perf ormed at: -Y [facility] [place] [address] [facility] [employer] [facility] [place], [place] [id number] [facility] Anjen Performed By: #### 2 023095997, 4499736592, 2022244, 5096742827, 5800952900, 237388022, 0340004, 9844475619, 0114203, 7945837, 4278920, 6788290488, 9631652, 2720996, 0586586, 21911956, 8137477, 120901780, 0359906757, 67084703, 7794867, 6752942, 4229716517 ####[address] [place] [address] Flow Markers X 3on 3 Flow Markers X 3 Performed Invalid Interpretation Code [facility] Comment on above: Result Comment: Perf ormed at: -Y [facility] [place] [address] [facility], [place] [id number] [id number] [facility] Chenn Anjen Performed By: #### 2 713364292, 8401711820, 7435822, 0548556570, 5799613673, 157235599, 6889616, 6130240105, 0361267, 7858363, 0056634, 7292676342, 3272136, 6416950, 4454289, 02214326, 4130523, 024233486, 9867262661, 46928661, 5305540, 0567634, 9780309800 ####[facility] [address] [place] [address] Flow Markers X 5on 3 Flow Markers X 5 Performed Invalid Interpretation Code [facility] Comment on above: Result Comment: Perf ormed at: -[facility] [address] [facility] [place], [place] [id number] [facility] Silvio Gonzalez Performed By: #### 2 637193575, 6387141666, 5804732, 9302729981, 0971443547, 932006133, 0587519, 5925611221, 9387413, 7971272, 5213517, 5035632233, 8028216, 2493045, 3437387, 73434418, 5936339, 840981521, 6809986192, 48699846, 2041585, 8048390, 6246808659 ####[facility] [address] [place] [address] HCV Antibody RFX to Quant PC Zach 03-18-2023 HCV IgG IA Ql Non-Reactive Invalid Interpretation Code Non Reactive [facility] Comment on above: Result Comment: Perf ormed at: [facility] [id number] PhD Mingo Mckeon Performed By: #### 2 400750892, 4906601694, 7986469, 4642017789, 5997853600, 386326716, 0885985, 9865994220, 3139993, 4294514, 8275983, 3761695214, 3790686, 7499809, 6208372, 25668568, 7293818, 811151786, 2332778646, 01455563, 1949902, 8385114, 5697368721 ####[facility] [address] [place] [address] HIV Screen 4th Generation wR fxon 03-18-2023 HIV 1+2 Ab+HIV1 p24 Ag IA Ql Non-Reactive Invalid Interpretation Code Non Reactive [facility] Comment on above: Result Comment: HIV Negative HIV-1/HIV-2 antibodies and HIV-1 p24 antigen were NOT detected. There is no laboratory evidence of HIV infection. Performed at: [facility] [address] [place] [address] [id number] PhD Mingo Mckeon Performed By: #### 2 151340752, 1302495071, 5830490, 2482083130, 1879761650, 149565767, 1040926, 3385956451, 6611798, 8520729, 7131105, 9832472609, 5585656, 8074417, 8779821, 97006803, 8172095, 865032025, 9153121387, 57207791, 2752488, 1378261, 7764755963 ####[facility] [address] [address] Hep A IgMon 03-18-2023 HAV IgM IA Ql Negative Invalid Interpretation Code Negative [facility] Comment on above: Result Comment: Perf ormed at: [address] [id number] PhD Mingo Mckeon Performed By: #### 2 215156005, 4915728660, 1454263, 6506499820, 0193355899, 293015274, 2194748, 4995847014, 0617459, 2872092, 5795984, 0184112583, 9553138, 7828068, 4699287, 26038255, 4261176, 784557742, 4054089524, 05706939, 0189470, 8859959, 9036082147 ####[facility] [address] [address] Hep B Core Ab, IgMon 023 HBV core IgM IA Ql Negative Invalid Interpretation Code Negative [facility] Comment on above: Result Comment: Perf ormed at: [address] [id number] PhD Mingo Mckeon Performed By: #### 2 631823126, 7612205642, 8313988, 7198977478, 6691902655, 912632000, 1162960, 5095294216, 7071586, 1807358, 0883238, 3369055097, 2689253, 6792932, 6753529, 47562837, 4249608, 411024411, 5857807828, 12648939, 3915405, 4194490, 8651095670 ####[address] [place] [address] Hep Bs Abon 03-18-2023 HBV surface Ab Ql (S) Non-Reactive Invalid Interpretation Code [facility] Comment on above: Result Comment: Non Reactive: Inconsistent with immunity, less than 10 mIU/mL Reactive: Consistent with immunity, greater than 9.9 mIU/mL Performed at: [facility] [address] [place] [id number] PhD Mingo Mckeon Performed By: #### 2 280223805, 9846946525, 4250528, 8261843999, 7635224026, 795536369, 3992962, 9379551768, 2151541, 9288501, 1880058, 2293059924, 6421112, 5876238, 5721299, 75656107, 0845595, 418402279, 2806840644, 06564189, 6974235, 6255332, 7687587410 ####[address] [place] [address] Hep Bs Agon 03-18-2023 HBV surface Ag IA Ql Negative Invalid Interpretation Code Negative [facility] Comment on above: Result Comment: Perf ormed at: [address] [id number] PhD Mingo Mckeon Performed By: #### 2 575150967, 8127842310, 0512624, 2827937265, 5144815112, 506441696, 9253572, 3855701903, 6919361, 0606918, 0204861, 3968066879, 5199406, 7740130, 1108554, 07483353, 2231950, 244809231, 9260435192, 34998300, 2225708, 2538066, 3619074705 ####[address] [place] [address] Office Visiton 03-14-2023 Follow-up visit [id number] Sandip Broussard 1940 Date Provider Department Center 03/14/2023 SHENG BERGMAN BH DONNIE [facility] Family History Problem Relation Age of Onset Hypertension Mother Stroke Father Breast cancer Sister Family Status - Relation Status Age at Mother Father Sister Level of Service:40379 ID OFFICE/OUTPATIENT ESTABLISHED LOW MDM 20-29 MIN Reason for Visit and Comments: Follow-up [211146] - 6 MONTH FOLLOW UP Normal [facility] Office/Clini c Noteon 03-13-2023 Family Medicine Office/Clinic Note Chief Complaint follow up chronic care, had medicare wellness today HPI Staff Patient here for 2 month follow up multiple medical problems Had medicare wellness this afternoon w/ Puneet [place] [facility] [place] Puneet noted BP [...] oncologist tomorrow, 03/11/2023, at 1:00 PM at [facility]. The patient needs glucose test strips. [...] with voice recognition artificial intelligence software, specifically PeopleGoal, Zzish and or Gigwalk. Substitutions may have occurred due to the inherent limitations of voice recognition and artificial intelligence software. ATTESTATION: Documentation services were performed after patient or guardian consented to allow flaregames to record this visit. VIRGEN coverage specialist and provider reviewed before signing. VIRGEN: [...] Flash 2 Glucose Monitoring 14 Day System ([place]), See Instructions glipiZIDE 5 mg ER Tab, [...] cap(s), Oral, Daily, 1 refills Potassium Chloride (Hbz-Ctte-Voy M20) 20 mEq oral tablet, extended release, 20 mEq= 1 tab(s), Oral, BID, 1 refills spironolact (more content not included)... Normal [facility] Comment on above: Result Comment: [...] had medicare wellness today Preferred Lab : [facility] Preferred Rad : [facility] Patient Counseled : Nutrition, Physical [...] with keep (more content not included)... Normal [facility] Comment on above: Result Comment: Elec tronically Signed By: Mick SEN, Jacquelin Davies\.br\Date and Time Signed: 03/13/23 12:59 EDT\.br\Electronically Co-Signed By: Puneet Mcelroy\.br\Date and Time Co-Signed: 03/10/23 15:23 EDT Consenton 03-12-2023 Consent [id number] .[id number]:127 Normal [facility] Physician Orderon 03-12-2023 Physician Order [id number] .[id number]:127 Normal [facility] .Manual Abson 03-11-2023 Basophils/Leukocytes Manual cnt (Bld) [Pure # fraction] 0.0 E9/L Normal 0.0-0.2 [facility] Comment on above: Performed By: #### 3 3926442, 0211754, 8337317, 7037822, 28913084 ####[facility] [address] [place] [address] Eosinophils/Leukocyte s Manual cnt (Bld) [Pure # fraction] 0.1 E9/L Normal 0.0-0.5 [facility] Comment on above: Performed By: #### 3 3866437, 3775078, 9626161, 7684540, 45463367 ####[facility] [address] [place] [address] Lymphocytes/Leukocyte s Manual cnt (Bld) [Pure # fraction] 1.4 E9/L Normal 1.0-4.0 [facility] Comment on above: Performed By: #### 3 3779946, 4277343, 2779552, 9588885, 54710499 ####[address] [place] [address] Monocytes/Leukocytes Manual cnt (Bld) [Pure # fraction] 0.3 E9/L Normal 0.2-1.0 [facility] Comment on above: Performed By: #### 3 3351599, 1895646, 6132475, 4757197, 17136795 ####[address] [address] Neutrophils/Leukocyte s Auto (Bld) [Pure # fraction] 3.4 E9/L Normal 2.0-7.5 [facility] Comment on above: Performed By: #### 3 0829595, 1564521, 0293415, 5745330, 43227389 ####[address] [address] BB Draw & Holdon 03-11-2023 BB D&H Sample drawn for Blood Ba Normal [facility] Comment on above: Performed By: #### 3 7357812, 8451617, 7024075, 6867510, 02599246 ####[address] [address] CBC w/ Auto Diffon Erythrocyte distribution width (RBC) [Ratio] 30.8 % High 10.9-14.2 [facility] Comment on above: Performed By: #### 3 7449668, 3459481, 4068736, 9175598, 77272857 ####[facility] [address] [place] [address] Hematocrit (Bld) [Volume fraction] 19.7 % Low 37.7-49.0 [facility] Comment on above: Performed By: #### 3 1848418, 2169461, 3637436, 8556443, 08774719 ####[facility] [address] [place] [address] Hemoglobin (Bld) [Mass/Vol] 6.7 g/dL Abnormal 13.5-17.5 [facility] Comment on above: Result Comment: Resu lts Called To Anlge Mendoza/ ONC By GISELA And Read Back For Confirmation On 03/11/2023 17:00:17 EDT Results Verified By Repeat Analysis Performed By: #### 3 8113419, 5413222, 2704004, 8484949, 81457026 ####[address] [address] MCH (RBC) [Entitic mass] 35.7 pg High 27.0-34.0 [facility] Comment on above: Performed By: #### 3 5823630, 1860098, 8694189, 9026164, 98572722 ####[address] [place] [address] MCHC (RBC) [Mass/Vol] 33.9 g/dL Normal 31.4-36.0 [facility] Comment on above: Performed By: #### 3 2643168, 8861350, 8453699, 0560442, 80617685 ####[address] [address] MCV (RBC) [Entitic vol] 105.3 fL High 80.0-100.0 [facility] Comment on above: Performed By: #### 3 8356919, 8972186, 2988248, 6351298, 30658505 ####[address] [address] Platelet mean volume (Bld) [Entitic vol] 12.4 fL High 6.4-10.8 [facility] Comment on above: Performed By: #### 3 6626886, 2074149, 2858978, 3866400, 86181512 ####[address] [address] Platelets (Bld) [#/Vol] 93.0 E9/L Low 150.0-500.0 [facility] Comment on above: Performed By: #### 3 3191048, 2619797, 3131995, 1573149, 74575020 ####[address] [place] [address] RBC (Bld) [#/Vol] 1.9 E12/L Low 4.3-5.9 [facility] Comment on above: Performed By: #### 3 5563005, 6406668, 1341421, 9897683, 27587131 ####[facility] [address] [place] [address] WBC corrected for nucl RBC Auto (Bld) [#/Vol] 5.8 E9/L Normal 4.0-11.0 [facility] Comment on above: Performed By: #### 3 8003635, 9708867, 3738821, 7379520, 30322211 ####[facility] [address] [place] [address] CMPon 03-11-2023 Albumin [Mass/Vol] 3.9 g/dL Normal 3.3-5.0 [facility] Comment on above: Performed By: #### 2 087654643, 9531670290, 1673636, 2081020352, 3770327623, 872694416, 7172644, 1689582567, 7180572, 2373397, 0593290, 2456433463, 3530658, 5385795, 6472678, 78902438, 1533569, 183592047, 7167912429, 35131906, 3571311, 5133092, 4576642541 #### [facility] [address] [place] [address] Albumin/Globulin (S) [Mass conc ratio] 1.1 Normal 1.1-2.2 [facility] Comment on above: Performed By: #### 2 240390258, 1790042809, 0554776, 5715507774, 9564373843, 761035166, 0662453, 8780668578, 4770029, 9218395, 9858591, 1181209748, 7260841, 5580367, 5654295, 59472431, 5499438, 945287530, 0360858294, 66239699, 9414108, 3437765, 1134530987 #### [facility] [address] [place] [address] ALP [Catalytic activity/Vol] 72 Int._Unit/L Normal 21-98 [facility] Comment on above: Performed By: #### 2 771002059, 6160146901, 1935794, 1282194532, 1102565694, 870898286, 2467164, 6303866795, 2438472, 6825358, 5105380, 4216526643, 1471205, 5713945, 0516973, 77224733, 0475631, 651091840, 5192706313, 22660838, 0954371, 6728490, 5420251523 #### [facility] [address] [place] [address] ALT No additional P-5'-P [Catalytic activity/Vol] 96 Int._Unit/L High 6-46 [facility] Comment on above: Performed By: #### 2 463077570, 6092291548, 3969095, 9740115569, 8589506395, 339169668, 4325910, 0797113904, 8497159, 0270538, 7662554, 1539594542, 2017915, 1794250, 1606033, 22390427, 6246578, 023316400, 0082406123, 69610788, 9555853, 4497973, 1967680396 #### [facility] [address] [place] [address] Anion gap [Moles/Vol] 13 mmol/L Normal 6-16 [facility] Comment on above: Performed By: #### 2 909024617, 5646477287, 1884599, 4116946619, 8546782386, 616016879, 4590468, 8277820091, 8614521, 5738185, 4688212, 7352708818, 1084890, 6054386, 4476661, 95551194, 0806802, 499399739, 5915658989, 35800568, 0728198, 4617347, 4244394577 #### [facility] [address] [place] [address] AST [Catalytic activity/Vol] 39 Int._Unit/L Normal 5-43 [facility] Comment on above: Performed By: #### 2 108783325, 6023355332, 4462621, 7017989095, 5635916089, 875579449, 2168598, 3455914164, 6087941, 4385474, 3813456, 1181082317, 1294013, 7575140, 9259889, 07387739, 6380672, 089981665, 7680533709, 93505174, 0587355, 0643362, 1937899085 #### [facility] [address] [place] [address] Bilirubin [Mass/Vol] 0.7 mg/dL Normal 0.0-1.1 [facility] Comment on above: Performed By: #### 2 506895203, 9873090091, 2756502, 5337994948, 3085892803, 244562608, 3677669, 3705610411, 2610930, 1710194, 3073497, 1130268372, 2057118, 0832343, 3283381, 74730699, 6542894, 158637795, 2494804798, 99521763, 7864901, 4554271, 2989481928 #### [facility] [address] [place] [address] Calcium [Mass/Vol] 9.5 mg/dL Normal 8.9-11.1 [facility] Comment on above: Performed By: #### 2 703087273, 2873889674, 1561864, 0734831682, 7282790733, 981253221, 2901285, 0784879772, 5068869, 4159822, 5778283, 3164769088, 7704930, 9782380, 2658565, 65094501, 6887113, 764365189, 1638576934, 20810252, 9141038, 4208745, 8242510771 #### [facility] [address] [place] [address] Chloride [Moles/Vol] 102 mmol/L Normal 101-111 [facility] Comment on above: Performed By: #### 2 494415469, 1215788740, 5493269, 4789003447, 1972445083, 975101157, 9611876, 1707160001, 0686084, 2689591, 0419765, 6884441016, 7400426, 3823524, 4864523, 52698508, 1707549, 440008017, 8883422493, 51691582, 1286289, 9078029, 0365419705 #### [facility] [address] [place] [address] CO2 [Moles/Vol] 32 mmol/L High 21-31 [facility] Comment on above: Performed By: #### 2 235639193, 0591278737, 2367477, 5996838016, 7471736847, 202556232, 6992235, 5828589306, 1194462, 8714563, 4501012, 1153228405, 6972380, 5483057, 6358300, 32383673, 0971907, 680537433, 5574949408, 53573743, 5106185, 1698529, 6371558440 #### [facility] [address] [place] [address] Creatinine [Mass/Vol] 1.9 mg/dL High 0.5-1.3 [facility] Comment on above: Performed By: #### 2 475698461, 6285231994, 9174772, 7312838940, 5933300524, 062111481, 2451201, 9003729709, 7979321, 5680953, 3741234, 9283986623, 6245533, 6216541, 5641570, 00737881, 1979739, 481440398, 4359557809, 73529851, 6202462, 6620347, 1005642884 #### [facility] [address] [place] [address] Globulin (S) [Mass/Vol] 3.5 g/dL Normal 1.4-4.0 [facility] Comment on above: Performed By: #### 2 813555473, 9052042164, 1434736, 9423396546, 2818472408, 609801626, 0453497, 2013267362, 3519110, 7573842, 5597458, 6775159236, 0148424, 0810980, 5460877, 02071961, 2823854, 022371953, 7258211052, 95783785, 3660504, 3805635, 7792941609 #### [facility] [address] [place] [address] Glucose [Mass/Vol] 181 mg/dL Normal 55-199 [facility] Comment on above: Result Comment: If t his glucose result represents a fasting glucose, interpretation should refer to the following reference range: 55-99 mg/dL Performed By: #### 2 635660610, 8079537917, 6002713, 3375004337, 1624357796, 283880966, 1009217, 0624060562, 8251260, 7479676, 2489821, 6521073376, 3755378, 8657446, 2376351, 28194951, 7499253, 205793122, 2944491711, 81822186, 1537064, 3777661, 3352927493 #### [facility] [address] [place] [address] Potassium [Moles/Vol] 4.7 mmol/L Normal 3.5-5.3 [facility] Comment on above: Performed By: #### 2 782612206, 9520950611, 5451363, 4616609751, 3779102235, 579088473, 1267314, 7381833483, 2163730, 7864994, 6086148, 6816462340, 0408909, 9207990, 0702158, 52717457, 8419627, 335206839, 7278182453, 10461636, 7746123, 3718269, 0234159635 #### [facility] [address] [place] [address] Protein [Mass/Vol] 7.4 g/dL Normal 6.0-7.8 [facility] Comment on above: Performed By: #### 2 806292957, 7114258072, 9562624, 1834948573, 0027986074, 079829528, 3291943, 1854937052, 5869150, 8695008, 0337841, 9610784135, 7756752, 1808251, 7352919, 13464250, 4582718, 525290975, 4975736426, 14493341, 6673505, 6162924, 9279598950 #### [facility] [address] [place] [address] Sodium [Moles/Vol] 142 mmol/L Normal 135-145 [facility] Comment on above: Performed By: #### 2 682318240, 2428961212, 4139192, 5570482419, 6261938054, 463598321, 9451893, 7889771328, 8865663, 6545622, 4738921, 6446977349, 2214044, 8293677, 5139395, 04479582, 3748914, 545465050, 1245907799, 21876090, 6563464, 5756183, 9673520345 #### [facility] [address] [place] [address] Urea nitrogen [Mass/Vol] 60 mg/dL High 5-21 [facility] Comment on above: Performed By: #### 2 165284087, 9278228132, 6410515, 1564976105, 3529090776, 438537482, 7491452, 9177281561, 7834348, 5694449, 9775545, 1857630481, 5742446, 3460058, 6595362, 57601773, 4366903, 154653011, 3229579942, 00101144, 1475023, 9421800, 1178341088 #### [facility] [address] [place] [address] Urea nitrogen/Creatinine [Mass ratio] 32 No Units High 10-20 [facility] Comment on above: Performed By: #### 2 413715173, 2308442962, 8176204, 4373095818, 6313999242, 653948430, 6805182, 1715074595, 8952353, 5587547, 1648333, 5694499514, 8934431, 7888866, 5171632, 64132552, 6298149, 301465662, 1961331954, 57542372, 5284346, 5723887, 8695627526 #### [facility] [address] [place] [address] Consent for Treatmenton 02-25 Consent for Treatment [id number]#1 .00CD:127 Normal [facility] Consent for Treatment [id number]#1 .00CD:127 Normal [facility] Ferritinon 03-11-2023 Ferritin [Mass/Vol] 3583 ng/mL High 24-336 [facility] Comment on above: Result Comment: NORM ALS MEN <30 YRS 16-132 ng/mL MEN >30 YRS 8-338 ng/mL WOMEN (PREMEN) 6-104 ng/mL WOMEN (POSTMEN) 12-210 ng/mL Performed By: #### 2 393408948, 4492128354, 9569439, 2873725593, 3049055758, 458486909, 2721492, 0311893032, 9246386, 2050796, 8962014, 7524871894, 9875779, 2975693, 7351723, 80281952, 1888291, 882802129, 4084681877, 57328595, 9829794, 2714373, 9578048862 ####[facility] [address] [place] [address] Folateon 03-11-2023 Folate [Mass/Vol] 11.6 ng/mL Normal >=6.7 [facility] Comment on above: Performed By: #### 2 131943354, 9212195312, 7686667, 8180525497, 9741205798, 638759399, 3623826, 8433336898, 7797918, 4158600, 0272612, 7005214819, 0478784, 1055068, 4381261, 88820886, 4441609, 196115845, 9388431331, 98322237, 8167643, 4943160, 6681684136 ####[facility] [address] [place] [address] Ironon 03-11-2023 Iron [Mass/Vol] 267 microgram/dL High 35-153 Fis [facility] Comment on above: Performed By: #### 2 193436146, 0586686481, 2941656, 9913625084, 9822369945, 727836262, 4500796, 5898876812, 7920339, 3499576, 0834904, 0084207434, 5020424, 9151882, 1509169, 95460458, 5555832, 863715361, 0907825781, 94392904, 4019090, 0501437, 1388148641 #### [facility] [address] [place] [address] Iron Saturationon 03-11-2023 Iron binding capacity [Mass/Vol] 294 microgram/dL Normal 250-400 [facility] Comment on above: Performed By: #### 2 666531408, 3001660773, 5026707, 9589757665, 8286235708, 422540122, 9153818, 9077232625, 5602645, 3195958, 4066880, 0681272070, 0995355, 6489131, 7964961, 09630416, 4911684, 531325126, 4798545723, 77550320, 5676989, 2846081, 6891917294 #### [facility] [address] [place] [address] Iron saturation [Mass fraction] 91 % High 20-50 [facility] Comment on above: Performed By: #### 2 404654219, 9871766479, 7503963, 9485850692, 3333051201, 223651125, 9253763, 5761783668, 5892002, 2119361, 3718908, 8336542369, 7040946, 5198479, 0629574, 60717058, 0009865, 437728714, 7448025877, 74406651, 4094228, 2240002, 1098325982 #### [facility] [address] [place] [address] LDHon 03-11-2023 LDH [Catalytic activity/Vol] 211 Int._Unit/L Normal 93-218 [facility] Comment on above: Performed By: #### 2 286046393, 2123061082, 7387656, 4068771409, 9772462723, 972925161, 9456392, 3816870668, 8553771, 7719688, 8852030, 0782734776, 7507506, 6344315, 4696153, 12265494, 6335649, 538637999, 3177646552, 75576956, 8073343, 8156508, 4209631455 #### [facility] [address] [place] [address] Manual Diffon 03-11-2023 Anisocytosis Ql (Bld) Present Normal [facility] Comment on above: Order Comment: Order Added by Discern Expert. Performed By: #### 3 1518609, 7121371, 5342593, 0224660, 50863190 ####[facility] [address] [place] [address] Band form neutrophils/100 WBC (Bld) 9 % Normal 0-10 [facility] Comment on above: Order Comment: Order Added by Discern Expert. Performed By: #### 3 2353760, 7238319, 3300721, 8581493, 41375360 ####[facility] [address] [place] [address] Basophils/100 WBC (Bld) 0 % Normal 0-2 [facility] Comment on above: Order Comment: Order Added by Discern Expert. Performed By: #### 3 0123525, 8110530, 9871848, 6402862, 87162187 ####[facility] [address] [place] [address] Eosinophils/100 WBC (Bld) 1 % Normal 0-8 [facility] Comment on above: Order Comment: Order Added by Discern Expert. Performed By: #### 3 3611492, 6350414, 1762294, 4985484, 95429598 ####[facility] [address] [place] [address] Hypochromia Auto Ql (Bld) Present Normal [facility] Comment on above: Order Comment: Order Added by Discern Expert. Performed By: #### 3 9010831, 8374156, 0897910, 8905454, 39994647 ####[facility] [address] [place] [address] Lymphocytes/100 WBC (Bld) 25 % Normal 14-50 [facility] Comment on above: Order Comment: Order Added by Discern Expert. Performed By: #### 3 4415289, 5782831, 3079274, 6340110, 94527064 ####[facility] [address] [place] [address] Macrocytes Ql (Bld) Present Normal [facility] Comment on above: Order Comment: Order Added by Discern Expert. Performed By: #### 3 2969757, 6408103, 3324203, 1555004, 22349921 ####[facility] [address] [place] [address] Metamyelocytes/Leukoc ytes Manual cnt (Bld) [Pure # fraction] 2 % High <=0 [facility] Comment on above: Order Comment: Order Added by Discern Expert. Performed By: #### 3 7607729, 4765688, 2683912, 0486475, 42697512 ####[facility] [address] [place] [address] Monocytes/100 WBC (Bld) 6 % Normal 4-14 [facility] Comment on above: Order Comment: Order Added by Discern Expert. Performed By: #### 3 8955402, 0900163, 6227568, 7921121, 90970920 ####[facility] [address] [place] [address] Morphology Edmundo (Bld) [Interp] See Morphology Normal [facility] Comment on above: Order Comment: Order Added by Discern Expert. Result Comment: Resu lts are consistent with previous path review performed on 01-06-23. Reviewed by MA. Performed By: #### 3 9014756, 0751592, 4070397, 3984982, 27305679 ####[facility] [address] [place] [address] Myelocytes/100 WBC (Bld) 7 % High <=0 [facility] Comment on above: Order Comment: Order Added by Discern Expert. Performed By: #### 3 1568924, 5027001, 3976971, 3331064, 97498046 ####[facility] [address] [place] [address] Platelets Large LM Ql (Bld) Present Normal [facility] Comment on above: Order Comment: Order Added by Discern Expert. Performed By: #### 3 2558842, 2423910, 6094675, 3364606, 39083561 ####[facility] [address] [place] [address] Segmented neutrophils/100 WBC (Bld) 50 % Normal 36-75 [facility] Comment on above: Order Comment: Order Added by Discern Expert. Performed By: #### 3 9205659, 3285788, 5990607, 9116809, 77417564 ####[facility] [address] [place] [address] Variant lymphocytes LM Ql (Bld) 0 % Normal <=0 [facility] Comment on above: Order Comment: Order Added by Discern Expert. 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 I accompanied Dr. Lu in room. Medical history reviewed. Patient was diagnosed with MDS and received CC/[place] [facility]. Patient had BMB 08/2021. Patient was signed on with [facility] but then quit [facility]. Patient is on home/portable oxygen. Patient with pancytopenia. Patient's rehabilitation nurse is Dr. Faria/[facility] [phone]. Treatment Plan: labs to be done today, Appt with Dr. Mercer, weekly CBC & BB hold to be done at [facility], every 3 week CMP,LDH to be done at [facility], transfusion standing order faxed to [facility] Follow-Up Appointment Info/Referrals: 6 weeks Resources Offered: Contact information provided to patient. Patient is stage 4 kidney disease and ejection fraction of 20% Normal [facility] Comment on above: Result Comment: [...] for any further chemotherapy or treatment by [facility] hematology oncology here in [facility]. Patient and his Lissette wanted second opinion [...] that. Unfortunately he suffered from an acute [place] on 11/23/2021 and developed another GI bleed. He was transfused several RBCs and managed to get his catheterization. 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 He was requiring packed RBC transfusion every 3 to 4 weeks and eventually was deemed not a responsive to 5 days and was seen by Dr. López at [facility]. He was getting blood transfusion for hemoglobin [...] IM injection every 3 weeks at the [facility]. Treatment to date: 1. Intermittent IV [...] colchicine 0.6 (more content not included)... Normal [facility] Patient Educationon 03-11-20 Patient Education Normal [facility] Physician Orderon 03-11-2023 Physician Order [id number]# 1.00CD:127 Normal [facility] Physician Order [id number]# 1.00CD:127 Normal [facility] Physician Order [id number]# 1.00CD:127 Normal [facility] Retic Counton 03-11-2023 Reticulocytes/100 RBC (Bld) 0.7 % Normal 0.5-1.5 [facility] Comment on above: Result Comment: This Reticulocyte Count Has Been Corrected For Anemia Performed By: #### 3 1623066, 1921581, 5493450, 7814993, 06500495 ####[facility] [address] [place] [address] Screenson 03-11-2023 Screens [id number]#1 .00CD:127 Normal [facility] Transferrinon 03-11-2023 Transferrin [Mass/Vol] 210 mg/dL Normal 200-370 [facility] Comment on above: Performed By: #### 2 946947330, 6441190524, 3291480, 5809010820, 3351874092, 437884355, 2551553, 6023005429, 5723259, 1102499, 3719086, 4179387562, 3697012, 8073667, 2111748, 46670538, 4945356, 676622977, 0747489173, 90172234, 5963351, 1192030, 6330833717 ####[place] 2899457 UA With Cult Reflexon 2022 Bilirubin Ql (U) Negative Normal Negative [facility] Comment on above: Order Comment: micro hematuria Performed By: #### 1 0892359 ####[address] [address] Clarity (U) CLEAR Normal Clear [facility] Comment on above: Order Comment: micro hematuria Performed By: #### 1 2536341 ####[address] [address] Color (U) STRAW Abnormal Yellow [facility] Comment on above: Order Comment: micro hematuria Performed By: #### 1 4635789 ####[address] [address] Epithelial cells.squamous LM.HPF (Urine sed) [#/Area] 0-2 Normal 0-2 [facility] Comment on above: Order Comment: micro hematuria Performed By: #### 1 6028623 ####[address] [address] Glucose Test strip (U) [Mass/Vol] 2+ Abnormal Negative [facility] Comment on above: Order Comment: micro hematuria Performed By: #### 1 5769031 ####[address] [address] Hemoglobin Ql (U) Negative Normal Negative [facility] Comment on above: Order Comment: micro hematuria Performed By: #### 1 6249779 ####[address] [address] Ketones (U) [Mass/Vol] Negative Normal Negative [facility] Comment on above: Order Comment: micro hematuria Performed By: #### 1 9990477 ####[address] [address] [place].plasma/Lithiu m.RBC (Bld) [Mass ratio] 0-3 Normal 0-3 [facility] Comment on above: Order Comment: micro hematuria Performed By: #### 1 5520363 ####[address] [address] Nitrite Ql (U) Negative Normal Negative [facility] Comment on above: Order Comment: micro hematuria Performed By: #### 1 6721520 ####[address] [address] pH (U) 6.0 [pH] Invalid Interpretation Code 5.0-9.0 [facility] Comment on above: Order Comment: micro hematuria Performed By: #### 1 7637565 ####[address] [address] Protein (U) [Mass/Vol] Negative Normal Negative [facility] Comment on above: Order Comment: micro hematuria Performed By: #### 1 8522365 ####[address] [address] Specific gravity (U) [Rel density] <=1.005 Invalid Interpretation Code 1.005-1.030 [facility] Comment on above: Order Comment: micro hematuria Performed By: #### 1 1555068 ####[address] [place] [address] Type of Urine collection method Random Urine Normal [facility] Comment on above: Order Comment: micro hematuria Performed By: #### 1 9214532 ####[facility] [address] [place] [address] Urobilinogen Qn (U) 0.2 {Dav'U}/dL Normal 0.0-1.0 [facility] Comment on above: Order Comment: micro hematuria Performed By: #### 1 4865321 ####[facility] [address] [place] [address] WBC Auto Ql (U) Negative Normal Negative [facility] Comment on above: Order Comment: micro hematuria Performed By: #### 1 0466433 ####[address] [address] WBC LM.HPF (Urine sed) [#/Area] 0-5 Normal 0-5 [facility] Comment on above: Order Comment: micro hematuria Performed By: #### 1 7687845 ####[facility] [address] [place] [address] Vit B12on 03-11-2023 Cobalamin (Vitamin B12) [Mass/Vol] 457 pg/mL Normal 50-1500 [facility] Comment on above: Performed By: #### 2 030140954, 1448910897, 4292155, 9607283009, 5945706998, 148324677, 2820004, 8853499289, 3760432, 9037754, 4576059, 9479787207, 5891939, 7524418, 6527239, 03104642, 2404194, 574360859, 5838461011, 64230440, 3758615, 0156028, 3246088467 ####[address] [address] eGFRon 03-11-2023 GFR/1.73 sq M.predicted among non-blacks MDRD (S/P/Bld) [Vol rate/Area] 34 mL/min/1.73 m2 Low >=59 [facility] Comment on above: Order Comment: Order added by Discern Expert. Result Comment: Tax Accounting Assistant charlene kidney disease could be indicated at eGFR's of less than 60 mL/min/1.73m2. Kidney failure is indicated at less than 15 mL/min/1.73m2. Performed By: #### 2 935996644, 3952319828, 2350059, 3278852274, 3985904977, 688670066, 6373385, 4246844374, 0151572, 6617285, 0786878, 0736168032, 6223629, 5432837, 8650405, 26460016, 0533322, 451553795, 7271564608, 23952610, 1234159, 8694110, 3696693374 #### [facility] [address] [place] [address] Ambulatory Visit Summaryon 0 03-10-2023 Ambulatory Visit [...] Barton MD This Is Your Medications List [facility] Prescription (Freestyle Carmen 2 Flash Glucose Monitoring 14 Day System (Sensor)) [facility] Prescription (Freestyle Carmen Flash 2 Glucose Monitoring 14 Day System ([place])) [facility] Prescription (Misc DME Prescription) aspirin (aspirin 81 [...] 40 mg Cap-DR) potassium chloride (Potassium Chloride (Xvb-Grzz-Kko M20) 20 mEq oral tablet, extended release) [...] PM EDT With: Jacquelin Barton MD Where: [facility] Ambulatory Visit Summary SANDIP BROUSSARD :1940 [...] Barton MD This Is Your Medications List [facility] Prescription (Freestyle Carmen 2 Flash Glucose Monitoring 14 Day System (Sensor)) [facility] Prescription (Freestyle Carmen Flash 2 Glucose Monitoring 14 Day System ([place])) [facility] Prescription (Misc DME Prescription) aspirin (aspirin 81 [...] 40 mg Cap-) potassium chloride (Potassium Chloride (Iut-Ljva-Mgh M20) 20 mEq oral tablet, extended release) [...] PM EDT With: Jacquelin Barton MD Where: [facility] Patient Educationon 03-10-20 Patient Education Cardiovascular [...] these instructions at home: Medicines ? Take gahs-pzz-ngdnftb and prescription medicines only as told by [...] can dri (more content not included)... Normal [facility] Family Medicine Office/Clini c [place] 02-17-2023 Family Medicine Office/Clinic Note Chief Complaint ER follow up HPI Staff ER follow up ER followup: Hospital: [facility] Visit date: 02/04/23: pt got 4units of [...] with voice recognition artificial intelligence software, specifically PeopleGoal, Zzish and or Gigwalk. Substitutions may have occurred due to the inherent limitations of voice recognition and artificial intelligence software. ATTESTATION: Documentation services were performed after patient or guardian consented to allow flaregames to record this visit. VIRGEN coverage specialist and provider reviewed before signing. VIRGEN: [...] mg Tab, 2.5 (more content not included)... [facility] Comment on above: Result Comment: Elec tronically Signed By: Jacquelin Barton MD\.br\Date and Time Signed: 02/17/23 12:06 EDT\.br\Electronically Co-Signed By: Maria Ines Puente.br\Date and Time Co-Signed: 02/13/23 18:35 EDT Physician Referralon 023 Physician Referral [id number]# 1.00CD:127 [facility] Hospital Correspo ndenceon 02-07-2023 Outside [facility] Correspondence [id number]#1 .00CD:127 Normal [facility] Urinalysison 01-11-2023 Bilirubin Ql (U) Negative Normal Negative [facility] Comment on above: Performed By: #### 1 3751103, 05904973 ####[facility] [address] [place] [address] Clarity (U) CLEAR Normal Clear [facility] Comment on above: Performed By: #### 1 7037501, 28221150 ####[facility] [address] [place] [address] Color (U) YELLOW Normal Yellow [facility] Comment on above: Performed By: #### 1 9963223, 10056836 ####[facility] [address] [place] [address] Epithelial cells.squamous LM.HPF (Urine sed) [#/Area] 0-2 Normal 0-2 [facility] Comment on above: Performed By: #### 1 3215191, 27694911 ####[facility] [address] [place] [address] Glucose Test strip (U) [Mass/Vol] 3+ Abnormal Negative [facility] Comment on above: Performed By: #### 1 9039475, 48921193 ####[facility] [address] [place] [address] Hemoglobin Ql (U) Negative Normal Negative [facility] Comment on above: Performed By: #### 1 2957555, 34949923 ####[facility] [address] [place] [address] Ketones (U) [Mass/Vol] Negative Normal Negative [facility] Comment on above: Performed By: #### 1 0412857, 80307264 ####[facility] [address] [place] [address] [place].plasma/Lithiu m.RBC (Bld) [Mass ratio] 0-3 Normal 0-3 [facility] Comment on above: Performed By: #### 1 4946307, 21106234 ####[address] [address] Nitrite Ql (U) Negative Normal Negative [facility] Comment on above: Performed By: #### 1 5333524, 49162631 ####[address] [address] pH (U) 6.5 [pH] Invalid Interpretation Code 5.0-9.0 [facility] Comment on above: Performed By: #### 1 0703270, 24454134 ####[address] [address] Protein (U) [Mass/Vol] Negative Normal Negative [facility] Comment on above: Performed By: #### 1 7714690, 87850889 ####[address] [address] Specific gravity (U) [Rel density] 1.010 Invalid Interpretation Code 1.005-1.030 [facility] Comment on above: Performed By: #### 1 3326834, 65262774 ####[address] [address] Type of Urine collection method Clean Catch Normal [facility] Comment on above: Performed By: #### 1 0634768, 66929560 ####[address] [address] Urobilinogen Qn (U) 0.2 {Dav'U}/dL Normal 0.0-1.0 [facility] Comment on above: Performed By: #### 1 0014160, 44627539 ####[address] [address] WBC Auto Ql (U) Negative Normal Negative [facility] Comment on above: Performed By: #### 1 1134826, 32273347 ####[address] [address] WBC LM.HPF (Urine sed) [#/Area] 0-5 Normal 0-5 [facility] Comment on above: Performed By: #### 1 0922618, 56033030 ####[facility] [address] [place] [address] CHEMISTRYOrdered By: José Luis Cat on 01-10-2023 Albumin DL <= 20 mg/L (U) [Mass/Vol] microgram/mL Normal 0.0 - 19.0 mcg/mL [facility] [place]isol Albumin Elph (U) [Mass fraction] 6.1 mg/dL Invalid Interpretation Code [facility] [place]isol Creatinine (U) [Mass/Vol] 47.9 mg/dL Invalid Interpretation Code [facility] [place]isol U Prot/Creat Ratio 127.30 mg/gm Cr Normal 0.00 - 200.00 mg/gm Cr [facility] [place] Remisol Nurse Consultation Noteon [...] mg= 1 cap(s), Oral, Daily Potassium Chloride (Lhn-Hxxw-Lyu M20) 20 mEq oral tablet, extended release, [...] influenza virus vaccine, inactivated 05/23/2013 Recorded Normal [facility] U Microalbon 01-10-2023 Albumin DL <= 20 mg/L (U) [Mass/Vol] mg/dL Normal 0.0-19.0 [facility] Comment on above: Performed By: #### 1 3939141, 11660468 ####[facility] [address] [place] [address] U Protein/Creat Ratioon 12-26 Albumin Elph (U) [Mass fraction] 6.1 mg/dL Invalid Interpretation Code [facility] Comment on above: Result Comment: The reference range and other method performance specifications have not been established for this test; results should be integrated into the clinical context for interpretation. Performed By: #### 1 [id number] ####[facility] [address] [place] [address] Creatinine (U) [Mass/Vol] 47.9 mg/dL Invalid Interpretation Code [facility] Comment on above: Result Comment: The reference range and other method performance specifications have not been established for this test; results should be integrated into the clinical context for interpretation. Performed By: #### 1 [id number] ####[facility] [address] [place] [address] U Prot/Creat Ratio 127.30 mg/gm Cr Normal .00-200.00 [facility] Comment on above: Performed By: #### 1 [id number] ####[facility] [address] [place] [address] Lab Reportson 01-08-2023 Lab Reports [id number]. 00CD:127 Normal [facility] Lab Reports [id number] .00CD:127 Normal [facility] Lab Reports [id number]#1. 00CD:127 Normal [facility] Formson 01-07-2023 Forms [id number] .00CD:127 Normal [facility] Path. Reviewon 01-07-2023 Path Review Pancytopenia with mild polychromasia and anisocytosis of RBCs. No increase of schistocytes seen. Invalid Interpretation Code [facility] Comment on above: Order Comment: Order Added by Discern Expert. Performed By: #### 2 837151, 6487663, 58967022, 1500159, 20702226, 52228942, 703303350 ####[facility] [address] [place] [address] Path. Review Pancytopenia with mild polychromasia and anisocytosis of RBCs. No increase of schistocytes seen. D61.818 CPT 67786 Invalid Interpretation Code [facility] Comment on above: Other Comment: Order Added by Discern Expert. Reminderson 01-07-2023 Reminders - From: Brittany Hull DO To: Mick SEN, Jacquelin Davies; Sent: 01/07/2023 12:25:00 EDT Show up: 01/07/2023 12:24:00 EDT Subject: Ambulatory Reminder Due Date/Time: 01/08/2023 12:23:00 EDT just wanted you be aware of pancytopenia Results: Date Result Type Result Name 01/07/2023 9:00 Document - DOC Path Review Normal [facility] Reminders - From: Brittany Hull [...] 0.8 E9/L (1.0 - 4.0) 01/06/2023 12: Ware Abs Man 0.2 E9/L (0.2 - 1.0) [...] ((H)) 8.1 % ( - <=5.9) Normal [facility] .Manual Abson 01-06-2023 Basophils/Leukocytes Manual cnt (Bld) [Pure # fraction] 0.0 E9/L Normal 0.0-0.2 [facility] Comment on above: Performed By: #### 2 876749, 2558769, 44378474, 0715247, 56189514, 94364801, 481339915 ####[facility] [address] [place] [address] Eosinophils/Leukocyte s Manual cnt (Bld) [Pure # fraction] 0.0 E9/L Normal 0.0-0.5 [facility] Comment on above: Performed By: #### 2 818494, 9990270, 00775514, 9169801, 27163838, 76780933, 685854231 ####[facility] [address] [place] [address] Lymphocytes/Leukocyte s Manual cnt (Bld) [Pure # fraction] 0.8 E9/L Low 1.0-4.0 [facility] Comment on above: Performed By: #### 2 816176, 3905404, 21543384, 4420285, 98925674, 52518554, 220572990 ####[facility] [address] [place] [address] Monocytes/Leukocytes Manual cnt (Bld) [Pure # fraction] 0.2 E9/L Normal 0.2-1.0 [facility] Comment on above: Performed By: #### 2 435619, 6770635, 38342123, 2235895, 12482885, 55903964, 719112003 ####[facility] [address] [place] [address] Neutrophils/Leukocyte s Auto (Bld) [Pure # fraction] 1.4 E9/L Low 2.0-7.5 [facility] Comment on above: Performed By: #### 2 970527, 9976265, 03084816, 7789705, 18847229, 78082255, 930378741 ####[facility] [address] [place] [address] Ambulatory Visit Summaryon 0 01-06-2023 Ambulatory Visit [...] 40 mg Cap-DR) potassium chloride (Potassium Chloride (Ulm-Whpc-Ama M20) 20 mEq oral tablet, extended release) [...] Friday 2:00 PM EDT With: Where: [place] [id number]- \.br\ Medications\.br\ What How Much When Instructions\.br\ [...] concerns \.br\ Unchanged potassium chloride (Potassium Chloride (Aaz-Nkbx-Niq M20) 20 mEq oral tablet, extended release) [...] numbers. This can be done either in Vincentian ([place] or metric measurements. Note that charts and online BMI calculators are available to help you find your BMI quickly and easily without having to do these calculations yourself.\.br\ To calculate your BMI in Vincentian ([place] measurements:\.br \ \.br\ 1. \.br\ Measure [...] Disease Control and Prevention: www.cdc.gov\.br\ ? \.br\ [place] Heart Association: www.heart.org\.br \ ? \.br\ National Heart, Lung, and Blood Pandora: www.nhlbi.nih.gov \.br\ Summary\.br\ ? \.br\ Body mass index (BMI) is a number that is calculated from a person's weight and height.\.br\ ? \.br\ BMI may help estimate how much of a person's weight is composed of fat. BMI can help identify those who may be at higher risk for certain medical problems.\.br\ ? \.br\ BMI can be measured using Vincentian measurements or metric measurements.\.br \ ? \.br\ BMI charts are used to identify whether you are underweight, normal weight, overweight, or obese.\.br\ This information is not intended to replace advice given to you by your health care provider. Make sure you discuss any questions you have with your health care provider.\.br\ Document Revised: 04/05/2020 Document Reviewed: 02/11/2020 [employer] Patient Education ? 2022 [employer].br\ \.br\ [facility] Ambulatory Visit Summary SANDIP BROUSSARD [...] 40 mg Cap-DR) potassium chloride (Potassium Chloride (Ocy-Aqjs-Xhc M20) 20 mEq oral tablet, extended release) [...] EDT With: Mick SEN, Jacquelin Davies Where: [facility] [place] Normal [facility] CBC w/ Auto Diffon 3 Erythrocyte distribution width (RBC) [Ratio] 31.5 % High 10.9-14.2 [facility] Comment on above: Performed By: #### 2 375910, 4268735, 97776847, 1998335, 72545470, 45883471, 033613005 ####[facility] [address] [place] [address] Hematocrit (Bld) [Volume fraction] 18.1 % Low 37.7-49.0 [facility] Comment on above: Performed By: #### 2 768360, 7928808, 46243954, 8379356, 94356297, 86505297, 376289789 ####[facility] [address] [place] [address] Hemoglobin (Bld) [Mass/Vol] 5.9 g/dL Abnormal 13.5-17.5 [facility] Comment on above: Result Comment: Resu lts Called To dr sparks By And Read Back For Confirmation On 01/06/2023 19:53:45 EDT. Performed By: #### 2 155900, 3482745, 23793540, 0277742, 94797652, 23790601, 640263593 ####[facility] [address] [place] [address] MCH (RBC) [Entitic mass] 36.4 pg High 27.0-34.0 [facility] Comment on above: Performed By: #### 2 817967, 2206943, 06841287, 4191338, 37167402, 30471232, 795777636 ####[facility] [address] [place] [address] MCHC (RBC) [Mass/Vol] 32.3 g/dL Normal 31.4-36.0 [facility] Comment on above: Performed By: #### 2 094992, 9822186, 54041296, 2089776, 83101132, 52593123, 524489963 ####[address] [address] MCV (RBC) [Entitic vol] 112.5 fL High 80.0-100.0 [facility] Comment on above: Performed By: #### 2 415423, 2424011, 20922723, 3993969, 56037853, 24303854, 594623800 ####[address] [address] Platelet mean volume (Bld) [Entitic vol] 13.2 fL High 6.4-10.8 [facility] Comment on above: Performed By: #### 2 011928, 4828329, 75047307, 2284477, 29301448, 10867973, 941015253 ####[address] [address] Platelets (Bld) [#/Vol] 89.0 E9/L Low 150.0-500.0 [facility] Comment on above: Performed By: #### 2 508906, 1858904, 56473031, 3121742, 42695963, 43865859, 892425856 ####[place] [address] [place] [address] RBC (Bld) [#/Vol] 1.6 E12/L Low 4.3-5.9 [facility] Comment on above: Performed By: #### 2 345825, 5263548, 36277959, 0626484, 93661961, 36169807, 515892912 ####[address] [address] WBC corrected for nucl RBC Auto (Bld) [#/Vol] 2.5 E9/L Low 4.0-11.0 [facility] Comment on above: Performed By: #### 2 528660, 1810713, 85003386, 6592647, 90804579, 71348184, 757080265 ####[facility] [address] [place] [address] CMPon 01-06-2023 Albumin [Mass/Vol] 3.2 g/dL Low 3.3-5.0 [facility] Comment on above: Performed By: #### 2 084437, 3737041, 89439492, 2832263, 48697475, 28845055, 187428475 ####[facility] [address] [place] [address] Albumin/Globulin (S) [Mass conc ratio] 1.0 Low 1.1-2.2 [facility] Comment on above: Performed By: #### 2 845632, 1329892, 28541601, 5052054, 37200491, 26491471, 823837045 ####[facility] [address] [place] [address] ALP [Catalytic activity/Vol] 70 Int._Unit/L Normal 21-98 [facility] Comment on above: Performed By: #### 2 632680, 5734120, 53710958, 5772639, 70606099, 88080582, 067134413 ####[facility] [address] [place] [address] ALT No additional P-5'-P [Catalytic activity/Vol] 79 Int._Unit/L High 6-46 [facility] Comment on above: Performed By: #### 2 250511, 3625078, 46442958, 1498798, 98562948, 15550931, 361623360 ####[facility] [address] [place] [address] Anion gap [Moles/Vol] 13 mmol/L Normal 6-16 [facility] Comment on above: Performed By: #### 2 343487, 5318007, 33541302, 5254027, 52627156, 17459078, 089462265 ####[facility] [address] [place] [address] AST [Catalytic activity/Vol] 25 Int._Unit/L Normal 5-43 [facility] Comment on above: Performed By: #### 2 171803, 4419814, 77454125, 9953249, 08743956, 27089558, 613836068 ####[facility] [address] [place] [address] Bilirubin [Mass/Vol] 0.8 mg/dL Normal 0.0-1.1 [facility] Comment on above: Performed By: #### 2 725890, 7290225, 83022174, 3660007, 14024807, 18489067, 972491075 ####[facility] [address] [place] [address] Calcium [Mass/Vol] 8.8 mg/dL Low 8.9-11.1 [facility] Comment on above: Performed By: #### 2 179402, 8916170, 46685358, 3572467, 07738025, 23780618, 304003384 ####[facility] [address] [place] [address] Chloride [Moles/Vol] 104 mmol/L Normal 101-111 [facility] Comment on above: Performed By: #### 2 901920, 5978705, 76198175, 7047510, 98865117, 52678471, 087030728 ####[facility] [address] [place] [address] CO2 [Moles/Vol] 28 mmol/L Normal 21-31 [facility] Comment on above: Performed By: #### 2 316666, 0090297, 65082112, 4159500, 69331320, 10612372, 228119488 ####[facility] [address] [place] [address] Creatinine [Mass/Vol] 2.2 mg/dL High 0.5-1.3 [facility] Comment on above: Performed By: #### 2 357378, 9266245, 59690881, 1130658, 57138727, 19783782, 263089490 ####[facility] [address] [place] [address] Globulin (S) [Mass/Vol] 3.3 g/dL Normal 1.4-4.0 [facility] Comment on above: Performed By: #### 2 663679, 4076889, 10252502, 9697418, 09846290, 14031915, 730402858 ####[facility] [address] [place] [address] Glucose [Mass/Vol] 192 mg/dL Normal 55-199 [facility] Comment on above: Result Comment: If t his glucose result represents a fasting glucose, interpretation should refer to the following reference range: 55-99 mg/dL Performed By: #### 2 141439, 8278940, 21043896, 6779409, 22416938, 76561658, 597350419 ####[facility] [address] [place] [address] Potassium [Moles/Vol] 4.3 mmol/L Normal 3.5-5.3 [facility] Comment on above: Performed By: #### 2 352140, 5946189, 35780496, 6689931, 73002127, 78568027, 795478174 ####[facility] [address] [place] [address] Protein [Mass/Vol] 6.5 g/dL Normal 6.0-7.8 [facility] Comment on above: Performed By: #### 2 646077, 4447964, 69508863, 2273273, 93368227, 16743600, 618029988 ####[facility] [address] [place] [address] Sodium [Moles/Vol] 141 mmol/L Normal 135-145 [facility] Comment on above: Performed By: #### 2 219793, 3930818, 15884799, 3470339, 50595631, 15997433, 612588760 ####[facility] [address] [place] [address] Urea nitrogen [Mass/Vol] 41 mg/dL High 5-21 [facility] Comment on above: Performed By: #### 2 331734, 9290168, 65682633, 7121158, 73203201, 66696636, 598246532 ####[facility] [address] [place] [address] Urea nitrogen/Creatinine [Mass ratio] 19 No Units Normal 10-20 [facility] Comment on above: Performed By: #### 2 992693, 5093737, 34604522, 4283532, 55055996, 97428451, 935783831 ####[facility] [address] [place] [address] Family Medicine Office/Clini c Noteon 01-06-2023 Family [...] of O2 2/2 pulm HTN, CHF. - [facility] is cardiology - No Pulm Doc [...] Comprehensive Metabolic Panel HgbA1c Lab Specimen Collect 97516 Microalbumin Level Urine U Protein/Creat Ratio 2. AP (angina pectoris) (I20.9: Angina pectoris, unspecified) - No chest pain. Ordered: CBC w/ Auto Diff Comprehensive Metabolic Panel HgbA1c Lab Specimen Collect 21024 Microalbumin Level Urine U Protein/Creat Ratio 3. Diabetes (E11.9: Type 2 diabetes mellitus without complications) - Will check A1c. - Will relax requirements as the patient is on hospice. Ordered: CBC w/ Auto Diff Comprehensive Metabolic Panel HgbA1c Lab Specimen Collect 59715 Microalbumin Level Urine U Protein/Creat Ratio 4. 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 Ordered: CBC w/ Auto Diff Comprehensive Metabolic Panel HgbA1c Lab Specimen Collect 73059 Microalbumin Level Urine U Protein/Creat Ratio 5. Hyperlipidemia (E78.5: Hyperlipidemia, unspecified) - Will have the patient stop taking his cholesterol meds. Ordered: CBC w/ Auto Diff Comprehensive Metabolic Panel HgbA1c Lab Specimen Collect 84507 Microalbumin Level Urine U Protein/Creat Ratio 6. [...] or previo (more content not included)... Normal [facility] Comment on above: Result Comment: Elec tronically Signed By: Mick SEN, Jacquelin Davies\.br\Date and Time Signed: 01/06/23 12:30 EDT [id number] 01-06-2023 HbA1c (Bld) [Mass fraction] 8.1 % High <=5.9 [facility] Comment on above: Performed By: #### 2 500488, 1982185, 96806628, 7117357, 71802379, 41931971, 144017614 ####[facility] [address] [place] [address] Manual Diffon 01-06-2023 Anisocytosis Ql (Bld) Present Normal [facility] Comment on above: Order Comment: Order Added by Discern Expert. Performed By: #### 2 402605, 0549234, 39811999, 8320748, 16099767, 33540008, 379338101 ####[facility] [address] [place] [address] Band form neutrophils/100 WBC (Bld) 5 % Normal 0-10 [facility] Comment on above: Order Comment: Order Added by Discern Expert. Performed By: #### 2 973204, 2850738, 54763885, 8036169, 34423782, 05409031, 416779741 ####[facility] [address] [place] [address] Basophils/100 WBC (Bld) 1 % Normal 0-2 [facility] Comment on above: Order Comment: Order Added by Rnoaldo Expert. Performed By: #### 2 103224, 0980072, 96199263, 0862986, 83330568, 50788384, 025713743 ####[facility] [address] [place] [address] Eosinophils/100 WBC (Bld) 0 % Normal 0-8 [facility] Comment on above: Order Comment: Order Added by Ronaldo Expert. Performed By: #### 2 699433, 7636500, 63222016, 1883676, 02289049, 49123834, 314125308 ####[facility] [address] [place] [address] Hypochromia Auto Ql (Bld) Present Normal [facility] Comment on above: Order Comment: Order Added by Ronaldo Expert. Performed By: #### 2 387827, 9911510, 96693915, 1404646, 55550155, 15222797, 280672514 ####[facility] [address] [place] [address] Lymphocytes/100 WBC (Bld) 30 % Normal 14-50 [facility] Comment on above: Order Comment: Order Added by Discern Expert. Performed By: #### 2 842434, 4404748, 12361695, 1887195, 54224695, 98000097, 492426191 ####[facility] [address] [place] [address] Macrocytes Ql (Bld) Present Normal [facility] Comment on above: Order Comment: Order Added by Discern Expert. Performed By: #### 2 840411, 8057752, 36751150, 2802377, 70145938, 14090390, 272405357 ####[facility] [address] [place] [address] Monocytes/100 WBC (Bld) 7 % Normal 4-14 [facility] Comment on above: Order Comment: Order Added by Discern Expert. Performed By: #### 2 704513, 1286429, 53125833, 1247801, 49571357, 45001458, 517681844 ####[facility] [address] [place] [address] Morphology Edmundo (Bld) [Interp] See Morphology Normal [facility] Comment on above: Order Comment: Order Added by Discern Expert. Performed By: #### 2 045641, 4966911, 37229350, 5162488, 90916458, 25955237, 542901746 ####[facility] [address] [place] [address] Myelocytes/100 WBC (Bld) 5 % High <=0 [facility] Comment on above: Order Comment: Order Added by Discern Expert. Performed By: #### 2 307388, 2317399, 45881963, 6064571, 32792282, 08833741, 827869548 ####[facility] [address] [place] [address] Ovalocytes LM Ql (Bld) Present Normal [facility] Comment on above: Order Comment: Order Added by Discern Expert. Performed By: #### 2 039390, 2616378, 77895989, 5490343, 86219816, 69270344, 888000754 ####[facility] [address] [place] [address] Platelets Large LM Ql (Bld) Present Normal [facility] Comment on above: Order Comment: Order Added by Discern Expert. Performed By: #### 2 221332, 1047398, 17141097, 2853385, 56421961, 56347561, 979590317 ####[facility] [address] [place] [address] Segmented neutrophils/100 WBC (Bld) 50 % Normal 36-75 [facility] Comment on above: Order Comment: Order Added by Ronaldo Expert. Performed By: #### 2 560242, 7492630, 23929216, 9852530, 43403391, 51814321, 316177430 ####[facility] [address] [place] [address] Variant lymphocytes LM Ql (Bld) 2 % High <=0 [facility] Comment on above: Order Comment: Order Added by Discern Expert. Performed By: #### 2 639500, 3629974, 81789700, 2478541, 55750072, 47513082, 980533689 ####[facility] [address] [place] [address] Patient Educationon 01-07-20 23 Patient Education Nutrition [...] numbers. This can be done either in Vincentian ([place] or metric measurements. Note that charts and online BMI calculators are available to help you find your BMI quickly and easily without having to do these calculations yourself. To calculate your BMI in Vincentian ([place] measurements: 1. Measure your weight in [...] for Disease Control and Prevention: www.cdc.gov ? [place] Heart Association: www.heart.org ? National Heart, Lung, and Blood Pandora: www.nhlbi.nih.gov Summary ? Body mass index (BMI) is a number that is calculated from a person's weight and height. ? BMI may help estimate how much of a person's weight is composed of fat. BMI can help identify those who may be at higher risk for certain medical problems. ? BMI can be measured using Vincentian measurements or metric measurements. ? BMI charts are used to identify whether you are underweight, normal weight, overweight, or obese. This information is not intended to replace advice given to you by your health care provider. Make sure you discuss any questions you have with your health care provider. Document Revised: 04/05/2020 Document Reviewed: 02/11/2020 [employer] Patient Education ? 2022 [employer]. Normal [facility] eGFRon 01-06-2023 GFR/1.73 sq M.predicted among non-blacks MDRD (S/P/Bld) [Vol rate/Area] 29 mL/min/1.73 m2 Low >=59 [facility] Comment on above: Order Comment: Order added by Discern Expert. Result Comment: Tax Accounting Assistant charlene kidney disease could be indicated at eGFR's of less than 60 mL/min/1.73m2. Kidney failure is indicated at less than 15 mL/min/1.73m2. Performed By: #### 2 085240, 8599838, 52298357, 1602389, 92555183, 62768669, 389940595 ####[facility] [address] [place] [address] Lab Reportson 12-26-2022 Lab Reports [id number] .00CD:127 Normal [facility] Lab Reportson 12-11-2022 Lab Reports [id number] .[id number]:127 Normal [facility] CBC AUTO DIFFon 12-10-2022 BASO # 0.0 103/ul Normal 0.0-0.1 [facility] Comment on above: Performed By: #### H H #### [facility] [address] [place] [address] Dr. Benito To Basophils/100 WBC (Bld) 0.5 % Normal 0.2-2.0 [facility] Comment on above: Performed By: #### H H #### [facility] [address] [place] [address] Dr. Benito oT EO # 0.0 103/ul Normal 0.0-0.7 [facility] Comment on above: Performed By: #### H H #### [facility] [address] [place] [address] Dr. Benito To Eosinophils/100 WBC (Bld) 0.9 % Normal 0.9-7.0 [facility] Comment on above: Performed By: #### H H #### [facility] [address] [place] [address] Dr. Benito To Erythrocyte distribution width (RBC) [Ratio] 26.4 % Critically high 11.0-15.0 [facility] Comment on above: Performed By: #### H H #### [facility] [address] [place] [address] Dr. Benito To Hematocrit (Bld) [Volume fraction] 25.0 % Critically low 42.0-54.0 [facility] Comment on above: Performed By: #### H H #### [facility] [address] [place] [address] Dr. Benito To Hemoglobin (Bld) [Mass/Vol] 8.1 g/dL Critically low 14.0-18.0 [facility] Comment on above: Performed By: #### H H #### [facility] [address] [place] [address] Dr. Benito To IG # 0.11 10e3/ul Critically high 0.00-0.03 [facility] Comment on above: Performed By: #### H H #### [facility] [address] [place] [address] Dr. Benito To IG % 5.0 % Critically high 0.0-0.5 [facility] Comment on above: Performed By: #### H H #### [facility] [address] [place] [address] Dr. Benito To LYMPH # 0.7 103/ul Critically low 1.2-3.8 [facility] Comment on above: Performed By: #### H H #### [facility] [address] [place] [address] Dr. Benito To Lymphocytes/100 WBC (Bld) 29.9 % Normal 20.5-60.0 [facility] Comment on above: Performed By: #### H H #### [facility] [address] [place] [address] Dr. Benito To MANUAL DIFF REQ NO Normal [facility] Comment on above: Performed By: #### H H #### [facility] [address] [place] [address] Dr. Benito To MCH (RBC) [Entitic mass] 33.2 pg Normal 25.9-34.0 [facility] Comment on above: Performed By: #### H H #### [facility] [address] [place] [address] Dr. Benito To MCHC (RBC) [Mass/Vol] 32.4 g/dL Normal 29.9-35.2 [facility] Comment on above: Performed By: #### H H #### [facility] [address] [place] [address] Dr. Benito To MCV (RBC) [Entitic vol] 102.5 fL Critically high 80.0-94.0 [facility] Comment on above: Performed By: #### H H #### [facility] [address] [place] [address] Dr. Benito To MONO # 0.3 103/ul Normal 0.3-0.8 [facility] Comment on above: Performed By: #### H H #### [facility] [address] [place] [address] Dr. Benito To Monocytes/100 WBC (Bld) 14.5 % Critically high 1.7-12.0 [facility] Comment on above: Performed By: #### H H #### [facility] [address] [place] [address] Dr. Benito To NEUT # 1.1 103/ul Critically low 1.4-6.5 [facility] Comment on above: Performed By: #### H H #### [facility] [address] [place] [address] Dr. Benito To Neutrophils/100 WBC (Bld) 49.2 % Normal 43.0-75.0 [facility] Comment on above: Performed By: #### H H #### [facility] [address] [place] [address] Dr. Benito To Platelet mean volume (Bld) [Entitic vol] 14.4 fL Critically high 9.5-13.5 [facility] Comment on above: Performed By: #### H H #### [facility] [address] [place] [address] Dr. Benito To PLT 121 103/ul Critically low 150-450 [facility] Comment on above: Performed By: #### H H #### [facility] [address] [place] [address] Dr. Benito To RBC 2.44 106/ul Critically low 4.70-6.10 [facility] Comment on above: Performed By: #### H H #### [facility] [address] [place] [address] Dr. Benito To WBC 2.2 103/ul Critically low 4.0-11.0 [facility] Comment on above: Performed By: #### H H #### [facility] [address] [place] [address] Dr. Benito To Lab Reportson 12-04-2022 Lab Reports [id number]:127 [facility] PRBC LEUKOREDUCEDon 12-05-19 23 ABO and Rh group Nom (Bld) Cross Match Result Compatible Unit Blood Type A Pos Unit Number [id number] Status Information Issued Product ID Red Blood Cells Product Code [id number] Issue Date/Time [id number] Normal [facility] Comment on above: Performed By: #### P RBC, TNS #### [facility] [address] [address] [address] Benito To Ambulatory Visit Summaryon 0 [...] 40 mg Cap-DR) potassium chloride (Potassium Chloride (Vjr-Ufzk-Gdr M20) 20 mEq oral tablet, extended release) [...] AM EDT With: Jacquelin Barton MD Where: [facility] CBC AUTO DIFFon 12-03-2022 BASO # 0.0 103/ul Normal 0.0-0.1 [facility] Comment on above: Performed By: #### T NS, PRBC #### [facility] [address] [place] [address] Dr. Benito To Basophils/100 WBC (Bld) 0.4 % Normal 0.2-2.0 [facility] Comment on above: Performed By: #### T NS, PRBC #### [facility] [address] [place] [address] Dr. Benito To EO # 0.0 103/ul Normal 0.0-0.7 [facility] Comment on above: Performed By: #### T NS, PRBC #### [facility] [address] [place] [address] Dr. Benito To Eosinophils/100 WBC (Bld) 0.4 % Critically low 0.9-7.0 [facility] Comment on above: Performed By: #### T NS, PRBC #### [facility] [address] [place] [address] Dr. Benito To Erythrocyte distribution width (RBC) [Ratio] 26.9 % Critically high 11.0-15.0 [facility] Comment on above: Performed By: #### T NS, PRBC #### [facility] [address] [place] [address] Dr. Benito To Hematocrit (Bld) [Volume fraction] 22.5 % Critically low 42.0-54.0 [facility] Comment on above: Performed By: #### T NS, PRBC #### [facility] [address] [place] [address] Dr. Benito To Hemoglobin (Bld) [Mass/Vol] 7.0 g/dL Critically low 14.0-18.0 [facility] Comment on above: Performed By: #### T NS, PRBC #### [facility] [address] [place] [address] Dr. Benito To IG # 0.16 10e3/ul Critically high 0.00-0.03 [facility] Comment on above: Performed By: #### T NS, PRBC #### [facility] [address] [place] [address] Dr. Benito To IG % 7.0 % Critically high 0.0-0.5 [facility] Comment on above: Performed By: #### T NS, PRBC #### [facility] [address] [place] [address] Dr. Benito To LYMPH # 0.7 103/ul Critically low 1.2-3.8 [facility] Comment on above: Performed By: #### T NS, PRBC #### [facility] [address] [place] [address] Dr. Benito To Lymphocytes/100 WBC (Bld) 28.6 % Normal 20.5-60.0 [facility] Comment on above: Performed By: #### T NS, PRBC #### [facility] [address] [place] [address] Dr. Benito To MANUAL DIFF REQ NO Normal [facility] Comment on above: Performed By: #### T NS, PRBC #### [facility] [address] [place] [address] Dr. Benito To MCH (RBC) [Entitic mass] 32.6 pg Normal 25.9-34.0 [facility] Comment on above: Performed By: #### T NS, PRBC #### [facility] [address] [place] [address] Dr. Benito To MCHC (RBC) [Mass/Vol] 31.1 g/dL Normal 29.9-35.2 [facility] Comment on above: Performed By: #### T NS, PRBC #### [facility] [address] [place] [address] Dr. Benito To MCV (RBC) [Entitic vol] 104.7 fL Critically high 80.0-94.0 [facility] Comment on above: Performed By: #### T NS, PRBC #### [facility] [address] [place] [address] Dr. Benito To MONO # 0.4 103/ul Normal 0.3-0.8 [facility] Comment on above: Performed By: #### T NS, PRBC #### [facility] [address] [place] [address] Dr. Benito To Monocytes/100 WBC (Bld) 19.4 % Critically high 1.7-12.0 [facility] Comment on above: Performed By: #### T NS, PRBC #### [facility] [address] [place] [address] Dr. Benito To NEUT # 1.0 103/ul Critically low 1.4-6.5 [facility] Comment on above: Performed By: #### T NS, PRBC #### [facility] [address] [place] [address] Dr. Benito To Neutrophils/100 WBC (Bld) 44.2 % Normal 43.0-75.0 [facility] Comment on above: Performed By: #### T NS, PRBC #### [facility] [address] [place] [address] Dr. Benito To Platelet mean volume (Bld) [Entitic vol] 14.6 fL Critically high 9.5-13.5 [facility] Comment on above: Performed By: #### T NS, PRBC #### [facility] [address] [place] [address] Dr. Benito To PLT 93 103/ul Critically low 150-450 [facility] Comment on above: Performed By: #### T NS, PRBC #### [facility] [address] [place] [address] Dr. Benito To RBC 2.15 106/ul Critically low 4.70-6.10 [facility] Comment on above: Performed By: #### T NS, PRBC #### [facility] [address] [place] [address] Dr. Benito To WBC 2.3 103/ul Critically low 4.0-11.0 [facility] Comment on above: Performed By: #### T NS, PRBC #### [facility] [address] [place], [place] [address] Dr. Benito To Family Medicine Office/Clini c [...] mg= 1 cap(s), Oral, Daily Potassium Chloride (Prb-Nxku-Ewn M20) 20 mEq oral tablet, extended release, [...] SARS-CoV-2 (COVID-19) (more content not included)... [facility] Comment on above: Result Comment: Elec tronically Signed By: RYANNE SEN, FLASH E\.br\Date and Time Signed: 12/03/22 13:58 EDT PROF CHEM 8 (BAS METB)on Anion gap [Moles/Vol] 8.3 mmol/L Normal [facility] Comment on above: Performed By: #### T ZEHRA, PRBC #### [facility] [address] [place] [address] Dr. Benito To Calcium [Mass/Vol] 9.2 mg/dL Normal 8.5-10.1 [facility] Comment on above: Performed By: #### T ZEHRA, PRBC #### [facility] [address] [address] [address] Benito To Chloride [Moles/Vol] 102 mmol/L Normal 98-107 [facility] Comment on above: Performed By: #### T NS, PRBC #### [facility] [address] [place] [address] Dr. Benito To CO2 [Moles/Vol] 31.5 mmol/L Normal 21.0-32.0 [facility] Comment on above: Performed By: #### T NS, PRBC #### [facility] [address] [place] [address] Dr. Benito To Creatinine [Mass/Vol] 1.96 mg/dL Critically high 0.70-1.30 [facility] Comment on above: Performed By: #### T NS, PRBC #### [facility] [address] [place] [address] Dr. Benito To EGFR-AF MONTSERRATIAN 40 mL/min/1.73m2 Critically low >=60 [facility] Comment on above: Performed By: #### T NS, PRBC #### [facility] [address] [place] [address] Dr. Benito To EGFR-NON AF MONTSERRATIAN 33 mL/min/1.73m2 Critically low >=60 [facility] Comment on above: Performed By: #### T NS, PRBC #### [facility] [address] [place] [address] Dr. Benito To Glucose [Mass/Vol] 235 mg/dL Critically high 74-106 [facility] Comment on above: Performed By: #### T NS, PRBC #### [facility] [address] [place] [address] Dr. Benito To Potassium [Moles/Vol] 3.8 mmol/L Normal 3.5-5.1 [facility] Comment on above: Performed By: #### T NS, PRBC #### [facility] [address] [place] [address] Dr. Benito To Sodium [Moles/Vol] 138 mmol/L Normal 136-145 [facility] Comment on above: Performed By: #### T NS, PRBC #### [facility] [address] [place] [address] Dr. Benito To Urea nitrogen [Mass/Vol] 45.0 mg/dL Critically high 7.0-18.0 [facility] Comment on above: Performed By: #### T NS, PRBC #### [facility] [address] [address] [address] Benito To Urea nitrogen/Creatinine [Mass ratio] 23.0 mg/mg Normal [facility] Comment on above: Performed By: #### T NS, PRBC #### [facility] [address] [address] [address] Benito To TYPE AND SCREENon 12-03-2022 TYPE AND SCREEN Negative Normal [facility] Comment on above: Performed By: #### P RBC, TNS #### [facility] [address] [address] [address] Benito To Ambulatory Visit Summaryon 0 [...] 40 mg Cap-DR) potassium chloride (Potassium Chloride (Knl-Uavg-Fbz M20) 20 mEq oral tablet, extended release) [...] PM EDT With: FLASH PEARL MD Where: [facility] Ambulatory Visit Summary SANDIP BROUSSARD :1940 [...] 40 mg Cap-DR) potassium chloride (Potassium Chloride (Zvb-Idsh-Uab M20) 20 mEq oral tablet, extended release) [...] PM EDT With: FLASH PEARL MD Where: [facility] Family Medicine Office/Clini c Noteon 11-20-2022 [...] mg= 1 cap(s), Oral, Daily Potassium Chloride (Qhp-Vqvj-Goq M20) 20 mEq oral tablet, extended release, [...] mg= 1 cap(s), Oral, Daily Potassium Chloride (Xwr-Kwcd-Dsj M20) 20 mEq oral tablet, extended release, [...] smoker, q (more content not included)... [facility] Comment on above: Result Comment: Elec tronically Signed By: RYANNE SEN, FLASH Hloden\.br\Date and Time Signed: 11/20/22 14:14 EDT RAD - MISCon 11-20-2022 RAD - MISC [id number]:127 [facility] BNPon 11-17-2022 Natriuretic peptide B (Bld) [Mass/Vol] 6221.0 pg/mL Critically high <=1,800.0 [facility] Comment on above: Performed By: #### T ZEHRA, PRBC #### [facility] [address] [place] [address] Dr. Benito To CBC AUTO DIFFon 11-17-2022 BASO # 0.1 103/ul Normal 0.0-0.1 [facility] Comment on above: Performed By: #### T ZEHRA, PRBC #### [facility] [address] [place] [address] Dr. Benito To Basophils/100 WBC (Bld) 1.1 % Normal 0.2-2.0 [facility] Comment on above: Performed By: #### T ZEHRA, PRBC #### [facility] [address] [place] [address] Dr. Benito To EO # 0.0 103/ul Normal 0.0-0.7 [facility] Comment on above: Performed By: #### T ZEHRA, PRBC #### [facility] [address] [place] [address] Dr. Benito To Eosinophils/100 WBC (Bld) 0.0 % Critically low 0.9-7.0 [facility] Comment on above: Performed By: #### T NS, PRBC #### [facility] [address] [place] [address] Dr. Benito To Erythrocyte distribution width (RBC) [Ratio] 23.8 % Critically high 11.0-15.0 [facility] Comment on above: Performed By: #### T NS, PRBC #### [facility] [address] [place] [address] Dr. Benito To Hematocrit (Bld) [Volume fraction] 22.0 % Critically low 42.0-54.0 [facility] Comment on above: Performed By: #### T NS, PRBC #### [facility] [address] [place] [address] Dr. Benito To Hemoglobin (Bld) [Mass/Vol] 7.0 g/dL Critically low 14.0-18.0 [facility] Comment on above: Performed By: #### T NS, PRBC #### [facility] [address] [place] [address] Dr. Benito To IG # 1.95 10e3/ul Critically high 0.00-0.03 [facility] Comment on above: Performed By: #### T NS, PRBC #### [facility] [address] [place] [address] Dr. Benito To IG % 24.9 % Critically high 0.0-0.5 [facility] Comment on above: Performed By: #### T NS, PRBC #### [facility] [address] [place] [address] Dr. Benito To LYMPH # 1.1 103/ul Critically low 1.2-3.8 [facility] Comment on above: Performed By: #### T NS, PRBC #### [facility] [address] [place] [address] Dr. Benito To Lymphocytes/100 WBC (Bld) 13.8 % Critically low 20.5-60.0 [facility] Comment on above: Performed By: #### T NS, PRBC #### [facility] [address] [place] [address] Dr. Benito To MANUAL DIFF REQ NO Normal [facility] Comment on above: Performed By: #### T NS, PRBC #### [facility] [address] [place] [address] Dr. Benito To MCH (RBC) [Entitic mass] 32.0 pg Normal 25.9-34.0 [facility] Comment on above: Performed By: #### T NS, PRBC #### [facility] [address] [place] [address] Dr. Benito To MCHC (RBC) [Mass/Vol] 31.8 g/dL Normal 29.9-35.2 [facility] Comment on above: Performed By: #### T NS, PRBC #### [facility] [address] [place] [address] Dr. Benito To MCV (RBC) [Entitic vol] 100.5 fL Critically high 80.0-94.0 [facility] Comment on above: Performed By: #### T NS, PRBC #### [facility] [address] [place] [address] Dr. Benito To MONO # 1.1 103/ul Critically high 0.3-0.8 [facility] Comment on above: Performed By: #### T NS, PRBC #### [facility] [address] [place] [address] Dr. Benito To Monocytes/100 WBC (Bld) 14.4 % Critically high 1.7-12.0 [facility] Comment on above: Performed By: #### T NS, PRBC #### [facility] [address] [place] [address] Dr. Benito To NEUT # 3.6 103/ul Normal 1.4-6.5 [facility] Comment on above: Performed By: #### T NS, PRBC #### [facility] [address] [place] [address] Dr. Benito To Neutrophils/100 WBC (Bld) 45.8 % Normal 43.0-75.0 [facility] Comment on above: Performed By: #### T NS, PRBC #### [facility] [address] [place] [address] Dr. Benito To Platelet mean volume (Bld) [Entitic vol] 0.0 fL Critically low 9.5-13.5 [facility] Comment on above: Performed By: #### T NS, PRBC #### [facility] [address] [place] [address] Dr. Benito To PLT 92 103/ul Critically low 150-450 [facility] Comment on above: Performed By: #### T NS, PRBC #### [facility] [address] [place] [address] Dr. Benito To RBC 2.19 106/ul Critically low 4.70-6.10 [facility] Comment on above: Performed By: #### T NS, PRBC #### [facility] [address] [place] [address] Dr. Benito To WBC 7.8 103/ul Normal 4.0-11.0 [facility] Comment on above: Performed By: #### T NS, PRBC #### [facility] [address] [place] [address] Dr. Benito To PROF 14(COMP METB)on 023 Albumin [Mass/Vol] 2.5 g/dL Critically low 3.4-5.0 [facility] Comment on above: Performed By: #### H GBHCT #### [facility] [address] [place] [address] Dr. Benito To Albumin/Globulin [Mass ratio] 0.6 {ratio} Normal [facility] Comment on above: Performed By: #### H GBHCT #### [facility] [address] [place] [address] Dr. Benito To ALP [Catalytic activity/Vol] 148 U/L Critically high 46-116 [facility] Comment on above: Performed By: #### H GBHCT #### [facility] [address] [place] [address] Dr. Benito To ALT [Catalytic activity/Vol] 61 U/L Normal 16-63 [facility] Comment on above: Performed By: #### H GBHCT #### [facility] [address] [address] [address] Benito To Anion gap [Moles/Vol] 8.5 mmol/L Normal [facility] Comment on above: Performed By: #### H GBHCT #### [facility] [address] [address] [address] Benito To AST [Catalytic activity/Vol] 43 U/L Critically high 15-37 [facility] Comment on above: Performed By: #### H GBHCT #### [facility] [address] [place] [address] Dr. Benito To Bilirubin [Mass/Vol] 0.8 mg/dL Normal 0.2-1.0 [facility] Comment on above: Performed By: #### H GBHCT #### [facility] [address] [address] [address] Benito To Calcium [Mass/Vol] 8.4 mg/dL Critically low 8.5-10.1 [facility] Comment on above: Performed By: #### H GBHCT #### [facility] [address] [place] [address] Dr. Benito To Chloride [Moles/Vol] 101 mmol/L Normal 98-107 [facility] Comment on above: Performed By: #### H GBHCT #### [facility] [address] [address] [address] Benito To CO2 [Moles/Vol] 37.8 mmol/L Critically high 21.0-32.0 [facility] Comment on above: Performed By: #### H GBHCT #### [facility] [address] [address] [address] Benito To Creatinine [Mass/Vol] 1.77 mg/dL Critically high 0.70-1.30 [facility] Comment on above: Performed By: #### H GBHCT #### [facility] [address] [address] [address] Benito To EGFR-AF MONTSERRATIAN 45 mL/min/1.73m2 Critically low >=60 [facility] Comment on above: Performed By: #### H GBHCT #### [facility] [address] [address] [address] Benito To EGFR-NON AF MONTSERRATIAN 37 mL/min/1.73m2 Critically low >=60 [facility] Comment on above: Performed By: #### H GBHCT #### [facility] [address] [address] [address] Benito To Globulin (S) [Mass/Vol] 4.3 g/dL Normal [facility] Comment on above: Performed By: #### H GBHCT #### [facility] [address] [place] [address] Dr. Benito To Glucose [Mass/Vol] 107 mg/dL Critically high 74-106 [facility] Comment on above: Performed By: #### H GBHCT #### [facility] [address] [place] [address] Dr. Benito To Potassium [Moles/Vol] 3.3 mmol/L Critically low 3.5-5.1 [facility] Comment on above: Performed By: #### H GBHCT #### [facility] [address] [place] [address] Dr. Benito To Protein [Mass/Vol] 6.8 g/dL Normal 6.4-8.2 [facility] Comment on above: Performed By: #### H GBHCT #### [facility] [address] [place] [address] Dr. Benito To Sodium [Moles/Vol] 144 mmol/L Normal 136-145 [facility] Comment on above: Performed By: #### H GBHCT #### [facility] [address] [address] [address] Benito To Urea nitrogen [Mass/Vol] 40.0 mg/dL Critically high 7.0-18.0 [facility] Comment on above: Performed By: #### H GBHCT #### [facility] [address] [place] [address] Dr. Benito To Urea nitrogen/Creatinine [Mass ratio] 22.6 mg/mg Normal [facility] Comment on above: Performed By: #### H GBHCT #### [facility] [address] [place] [address] Dr. Benito To BNPon 11-16-2022 Natriuretic peptide B (Bld) [Mass/Vol] 36924.0 pg/mL Critically high <=1,800.0 [facility] Comment on above: Performed By: #### T NS, PRBC #### [facility] [address] [place] [address] Dr. Benito To CBC AUTO DIFFon 11-16-2022 BASO # 0.1 103/ul Normal 0.0-0.1 [facility] Comment on above: Performed By: #### T NS, PRBC #### [facility] [address] [place] [address] Dr. Benito To Basophils/100 WBC (Bld) 0.6 % Normal 0.2-2.0 [facility] Comment on above: Performed By: #### T NS, PRBC #### [facility] [address] [place] [address] Dr. Benito To EO # 0.6 103/ul Normal 0.0-0.7 [facility] Comment on above: Performed By: #### T NS, PRBC #### [facility] [address] [place] [address] Dr. Benito To Eosinophils/100 WBC (Bld) 5.1 % Normal 0.9-7.0 [facility] Comment on above: Performed By: #### T NS, PRBC #### [facility] [address] [place] [address] Dr. Benito To Erythrocyte distribution width (RBC) [Ratio] 23.6 % Critically high 11.0-15.0 [facility] Comment on above: Performed By: #### T NS, PRBC #### [facility] [address] [place] [address] Dr. Benito To Hematocrit (Bld) [Volume fraction] 22.3 % Critically low 42.0-54.0 [facility] Comment on above: Performed By: #### T NS, PRBC #### [facility] [address] [place] [address] Dr. Benito To Hemoglobin (Bld) [Mass/Vol] 7.2 g/dL Critically low 14.0-18.0 [facility] Comment on above: Performed By: #### T NS, PRBC #### [facility] [address] [place] [address] Dr. Benito To IG # 1.56 10e3/ul Critically high 0.00-0.03 [facility] Comment on above: Performed By: #### T NS, PRBC #### [facility] [address] [place] [address] Dr. Benito To IG % 14.4 % Critically high 0.0-0.5 [facility] Comment on above: Performed By: #### T NS, PRBC #### [facility] [address] [place] [address] Dr. Benito To LYMPH # 1.3 103/ul Normal 1.2-3.8 [facility] Comment on above: Performed By: #### T NS, PRBC #### [facility] [address] [place] [address] Dr. Benito To Lymphocytes/100 WBC (Bld) 12.1 % Critically low 20.5-60.0 [facility] Comment on above: Performed By: #### T NS, PRBC #### [facility] [address] [place] [address] Dr. Benito To MANUAL DIFF REQ NO Normal [facility] Comment on above: Performed By: #### T NS, PRBC #### [facility] [address] [place] [address] Dr. Benito To MCH (RBC) [Entitic mass] 32.4 pg Normal 25.9-34.0 [facility] Comment on above: Performed By: #### T NS, PRBC #### [facility] [address] [place] [address] Dr. Benito To MCHC (RBC) [Mass/Vol] 32.3 g/dL Normal 29.9-35.2 [facility] Comment on above: Performed By: #### T NS, PRBC #### [facility] [address] [place] [address] Dr. Benito To MCV (RBC) [Entitic vol] 100.5 fL Critically high 80.0-94.0 [facility] Comment on above: Performed By: #### T NS, PRBC #### [facility] [address] [place] [address] Dr. Benito To MONO # 1.7 103/ul Critically high 0.3-0.8 [facility] Comment on above: Performed By: #### T NS, PRBC #### [facility] [address] [place] [address] Dr. Benito To Monocytes/100 WBC (Bld) 15.3 % Critically high 1.7-12.0 [facility] Comment on above: Performed By: #### T NS, PRBC #### [facility] [address] [place] [address] Dr. Benito To NEUT # 5.7 103/ul Normal 1.4-6.5 [facility] Comment on above: Performed By: #### T NS, PRBC #### [facility] [address] [place] [address] Dr. Benito To Neutrophils/100 WBC (Bld) 52.5 % Normal 43.0-75.0 [facility] Comment on above: Performed By: #### T NS, PRBC #### [facility] [address] [place] [address] Dr. Benito To Platelet mean volume (Bld) [Entitic vol] 0.0 fL Critically low 9.5-13.5 [facility] Comment on above: Performed By: #### T NS, PRBC #### [facility] [address] [place] [address] Dr. Benito To PLT 83 103/ul Critically low 150-450 [facility] Comment on above: Performed By: #### T NS, PRBC #### [facility] [address] [place] [address] Dr. Benito To RBC 2.22 106/ul Critically low 4.70-6.10 [facility] Comment on above: Performed By: #### T NS, PRBC #### [facility] [address] [place] [address] Dr. Benito To WBC 10.8 103/ul Normal 4.0-11.0 [facility] Comment on above: Performed By: #### T NS, PRBC #### [facility] [address] [place] [address] Dr. Benito To PROF 14(COMP METB)on 023 Albumin [Mass/Vol] 2.5 g/dL Critically low 3.4-5.0 [facility] Comment on above: Performed By: #### T NS, PRBC #### [facility] [address] [place] [address] Dr. Benito To Albumin/Globulin [Mass ratio] 0.6 {ratio} Normal [facility] Comment on above: Performed By: #### T NS, PRBC #### [facility] [address] [place] [address] Dr. Benito To ALP [Catalytic activity/Vol] 133 U/L Critically high 46-116 [facility] Comment on above: Performed By: #### T NS, PRBC #### [facility] [address] [place] [address] Dr. Benito To ALT [Catalytic activity/Vol] 56 U/L Normal 16-63 [facility] Comment on above: Performed By: #### T NS, PRBC #### [facility] [address] [place] [address] Dr. Benito To Anion gap [Moles/Vol] 11.8 mmol/L Normal [facility] Comment on above: Performed By: #### T NS, PRBC #### [facility] [address] [place] [address] Dr. Benito oT AST [Catalytic activity/Vol] 35 U/L Normal 15-37 [facility] Comment on above: Performed By: #### T NS, PRBC #### [facility] [address] [place] [address] Dr. Benito To Bilirubin [Mass/Vol] 0.9 mg/dL Normal 0.2-1.0 [facility] Comment on above: Performed By: #### T NS, PRBC #### [facility] [address] [place] [address] Dr. Benito To Calcium [Mass/Vol] 8.4 mg/dL Critically low 8.5-10.1 [facility] Comment on above: Performed By: #### T NS, PRBC #### [facility] [address] [place] [address] Dr. Benito To Chloride [Moles/Vol] 101 mmol/L Normal 98-107 [facility] Comment on above: Performed By: #### T NS, PRBC #### [facility] [address] [place] [address] Dr. Benito To CO2 [Moles/Vol] 32.2 mmol/L Critically high 21.0-32.0 [facility] Comment on above: Performed By: #### T NS, PRBC #### [facility] [address] [place] [address] Dr. Benito To Creatinine [Mass/Vol] 1.89 mg/dL Critically high 0.70-1.30 [facility] Comment on above: Performed By: #### T NS, PRBC #### [facility] [address] [place] [address] Dr. Benito To EGFR-AF MONTSERRATIAN 41 mL/min/1.73m2 Critically low >=60 [facility] Comment on above: Performed By: #### T NS, PRBC #### [facility] [address] [place] [address] Dr. Benito To EGFR-NON AF MONTSERRATIAN 34 mL/min/1.73m2 Critically low >=60 [facility] Comment on above: Performed By: #### T NS, PRBC #### [facility] [address] [place] [address] Dr. Benito To Globulin (S) [Mass/Vol] 4.5 g/dL Normal [facility] Comment on above: Performed By: #### T NS, PRBC #### [facility] [address] [place] [address] Dr. Benito To Glucose [Mass/Vol] 105 mg/dL Normal 74-106 [facility] Comment on above: Performed By: #### T NS, PRBC #### [facility] [address] [place] [address] Dr. Benito To Potassium [Moles/Vol] 2.9 mmol/L Critically low 3.5-5.1 [facility] Comment on above: Performed By: #### T NS, PRBC #### [facility] [address] [place] [address] Dr. Benito To Protein [Mass/Vol] 7.0 g/dL Normal 6.4-8.2 [facility] Comment on above: Performed By: #### T NS, PRBC #### [facility] [address] [place] [address] Dr. Benito To Sodium [Moles/Vol] 140 mmol/L Normal 136-145 [facility] Comment on above: Performed By: #### T NS, PRBC #### [facility] [address] [place] [address] Dr. Benito To Urea nitrogen [Mass/Vol] 39.0 mg/dL Critically high 7.0-18.0 [facility] Comment on above: Performed By: #### T NS, PRBC #### [facility] [address] [place] [address] Dr. Benito To Urea nitrogen/Creatinine [Mass ratio] 20.6 mg/mg Normal [facility] Comment on above: Performed By: #### T NS, PRBC #### [facility] [address] [place] [address] Dr. Benito To XR CHEST 1 Von [...] JOSIE MIRAMONTES Date: 2022-11-16 13:55 Normal [facility] CBC W MANUAL DIFFon 11-16-19 23 ANISOCYTOSIS 3+ Normal [facility] Comment on above: Performed By: #### T NS, PRBC #### [facility] [address] [place] [address] Dr. Benito To ATYPICAL LYMPH # 0.71 103/ul Normal [facility] Comment on above: Performed By: #### T NS, PRBC #### [facility] [address] [place] [address] Dr. Benito To ATYPICAL LYMPH % 6 % Normal [facility] Comment on above: Performed By: #### T NS, PRBC #### [facility] [address] [place] [address] Dr. Benito To BAND # 1.3 103/ul Critically high 0.0-0.3 [facility] Comment on above: Performed By: #### T NS, PRBC #### [facility] [address] [place] [address] Dr. Benito To BAND % 11 % Critically high 0-5 [facility] Comment on above: Performed By: #### T NS, PRBC #### [facility] [address] [place] [address] Dr. Benito To BASOM # 0.00 103/ul Normal 0.00-0.10 [facility] Comment on above: Performed By: #### T NS, PRBC #### [facility] [address] [place] [address] Dr. Benito To BASOM % 0.0 % Critically low 0.2-2.0 [facility] Comment on above: Performed By: #### T NS, PRBC #### [facility] [address] [place] [address] Dr. Benito To BLAST # Normal [facility] Comment on above: Performed By: #### T NS, PRBC #### [facility] [address] [place] [address] Dr. Benito To BLAST % Normal [facility] Comment on above: Performed By: #### T NS, PRBC #### [facility] [address] [place] [address] Dr. Benito To CORRECTED WBC Normal 4.0-11.0 [facility] Comment on above: Performed By: #### T NS, PRBC #### [facility] [address] [place] [address] Dr. Benito To EOS # 0.00 103/ul Normal 0.00-0.70 [facility] Comment on above: Performed By: #### T NS, PRBC #### [facility] [address] [place] [address] Dr. Benito To EOS% 0.0 % Critically low 0.9-7.0 [facility] Comment on above: Performed By: #### T NS, PRBC #### [facility] [address] [place] [address] Dr. Benito To HCT 24.3 % Critically low 42.0-54.0 [facility] Comment on above: Performed By: #### T NS, PRBC #### [facility] [address] [place] [address] Dr. Benito To HGB 7.5 g/dl Critically low 14.0-18.0 [facility] Comment on above: Performed By: #### T NS, PRBC #### [facility] [address] [place] [address] Dr. Benito To LYMPHM # 1.55 103/ul Normal 1.20-3.80 [facility] Comment on above: Performed By: #### T NS, PRBC #### [facility] [address] [place] [address] Dr. Benito To LYMPHM% 13.0 % Critically low 20.5-60.0 [facility] Comment on above: Performed By: #### T NS, PRBC #### [facility] [address] [place] [address] Dr. Benito To MCH 30.9 pg Normal 25.9-34.0 [facility] Comment on above: Performed By: #### T NS, PRBC #### [facility] [address] [place] [address] Dr. Benito To MCHC 30.9 g/dl Normal 29.9-35.2 [facility] Comment on above: Performed By: #### T NS, PRBC #### [facility] [address] [place] [address] Dr. Benito To MCV 100.0 fL Critically high 80.0-94.0 [facility] Comment on above: Performed By: #### T NS, PRBC #### [facility] [address] [place] [address] Dr. Benito To METAMYELOCYTE # Normal [facility] Comment on above: Performed By: #### T NS, PRBC #### [facility] [address] [place] [address] Dr. Benito To METAMYELOCYTE % Normal [facility] Comment on above: Performed By: #### T NS, PRBC #### [facility] [address] [place] [address] Dr. Benito To MONOM# 0.59 103/ul Normal 0.30-0.80 [facility] Comment on above: Performed By: #### T NS, PRBC #### [facility] [address] [place] [address] Dr. Benito To MONOM% 5.0 % Normal 1.7-12.0 [facility] Comment on above: Performed By: #### T NS, PRBC #### [facility] [address] [place] [address] Dr. Benito To MPV 0.0 fL Critically low 9.5-13.5 [facility] Comment on above: Performed By: #### T NS, PRBC #### [facility] [address] [place], [place] [id number] Dr. Benito To MYELOCYTE # 0.2 103/ul Normal [facility] Comment on above: Performed By: #### T NS, PRBC #### [facility] [address] [place] [address] Dr. Benito To MYELOCYTE % 2 % Normal [facility] Comment on above: Performed By: #### T NS, PRBC #### [facility] [address] [place] [address] Dr. Benito To NRBC Normal [facility] Comment on above: Performed By: #### T NS, PRBC #### [facility] [address] [place] [address] Dr. Benito To PLT 83 103/ul Critically low 150-450 [facility] Comment on above: Performed By: #### T NS, PRBC #### [facility] [address] [place] [address] Dr. Benito To RBC 2.43 106/ul Critically low 4.70-6.10 [facility] Comment on above: Performed By: #### T NS, PRBC #### [facility] [address] [place] [address] Dr. Benito To RDW 23.9 % Critically high 11.0-15.0 [facility] Comment on above: Performed By: #### T NS, PRBC #### [facility] [address] [place] [address] Dr. Benito To SEG # 7.50 103/ul Critically high 1.40-6.50 [facility] Comment on above: Performed By: #### T NS, PRBC #### [facility] [address] [place] [address] Dr. Benito To SEG % 63.0 % Normal 43.0-75.0 [facility] Comment on above: Performed By: #### T NS, PRBC #### [facility] [address] [place] [address] Dr. Benito To WBC 11.9 103/ul Critically high 4.0-11.0 [facility] Comment on above: Performed By: #### T NS, PRBC #### [facility] [address] [address] [address] Benito To PROF 14(COMP METB)on 023 Albumin [Mass/Vol] 2.6 g/dL Critically low 3.4-5.0 [facility] Comment on above: Performed By: #### T NS, PRBC #### [facility] [address] [address] [address] Benito To Albumin/Globulin [Mass ratio] 0.6 {ratio} Normal [facility] Comment on above: Performed By: #### T NS, PRBC #### [facility] [address] [place] [address] Dr. Benito To ALP [Catalytic activity/Vol] 139 U/L Critically high 46-116 [facility] Comment on above: Performed By: #### T NS, PRBC #### [facility] [address] [place] [address] Dr. Benito To ALT [Catalytic activity/Vol] 52 U/L Normal 16-63 [facility] Comment on above: Performed By: #### T NS, PRBC #### [facility] [address] [place] [address] Dr. Benito To Anion gap [Moles/Vol] 12.4 mmol/L Normal [facility] Comment on above: Performed By: #### T NS, PRBC #### [facility] [address] [address] [address] Benito To AST [Catalytic activity/Vol] 31 U/L Normal 15-37 [facility] Comment on above: Performed By: #### T NS, PRBC #### [facility] [address] [place] [address] Dr. Benito To Bilirubin [Mass/Vol] 1.3 mg/dL Critically high 0.2-1.0 [facility] Comment on above: Performed By: #### T NS, PRBC #### [facility] [address] [address] [address] Benito To Calcium [Mass/Vol] 8.2 mg/dL Critically low 8.5-10.1 [facility] Comment on above: Performed By: #### T NS, PRBC #### [facility] [address] [place] [address] Dr. Benito To Chloride [Moles/Vol] 100 mmol/L Normal 98-107 [facility] Comment on above: Performed By: #### T NS, PRBC #### [facility] [address] [place] [address] Dr. Benito To CO2 [Moles/Vol] 32.5 mmol/L Critically high 21.0-32.0 [facility] Comment on above: Performed By: #### T NS, PRBC #### [facility] [address] [place] [address] Dr. Benito To Creatinine [Mass/Vol] 1.85 mg/dL Critically high 0.70-1.30 [facility] Comment on above: Performed By: #### T NS, PRBC #### [facility] [address] [place] [address] Dr. Benito To EGFR-AF MONTSERRATIAN 43 mL/min/1.73m2 Critically low >=60 [facility] Comment on above: Performed By: #### T NS, PRBC #### [facility] [address] [place] [address] Dr. Benito To EGFR-NON AF MONTSERRATIAN 35 mL/min/1.73m2 Critically low >=60 [facility] Comment on above: Performed By: #### T NS, PRBC #### [facility] [address] [place] [address] Dr. Benito To Globulin (S) [Mass/Vol] 4.6 g/dL Normal [facility] Comment on above: Performed By: #### T NS, PRBC #### [facility] [address] [place] [address] Dr. Benito To Glucose [Mass/Vol] 124 mg/dL Critically high 74-106 [facility] Comment on above: Performed By: #### T NS, PRBC #### [facility] [address] [place] [address] Dr. Benito To Potassium [Moles/Vol] 3.9 mmol/L Normal 3.5-5.1 [facility] Comment on above: Performed By: #### T NS, PRBC #### [facility] [address] [place] [address] Dr. Benito To Protein [Mass/Vol] 7.2 g/dL Normal 6.4-8.2 [facility] Comment on above: Performed By: #### T NS, PRBC #### [facility] [address] [address] [address] Benito To Sodium [Moles/Vol] 141 mmol/L Normal 136-145 [facility] Comment on above: Performed By: #### T NS, PRBC #### [facility] [address] [place] [address] Dr. Benito To Urea nitrogen [Mass/Vol] 36.0 mg/dL Critically high 7.0-18.0 [facility] Comment on above: Performed By: #### T ZEHRA, PRBC #### [facility] [address] [place] [address] Dr. Benito To Urea nitrogen/Creatinine [Mass ratio] 19.5 mg/mg Normal [facility] Comment on above: Performed By: #### T NS, PRBC #### [facility] [address] [place] [address] Dr. Benito To XR CHEST 1 Von [...] JOSIE MIRAMONTES Date: 2022-11-15 09:46 Normal [facility] CBC AUTO DIFFon 11-14-2022 BASO # 0.0 103/ul Normal 0.0-0.1 [facility] Comment on above: Performed By: #### H GBHCT #### [facility] [address] [place] [address] Dr. Benito To Basophils/100 WBC (Bld) 0.3 % Normal 0.2-2.0 [facility] Comment on above: Performed By: #### H GBHCT #### [facility] [address] [place] [address] Dr. Benito To EO # 0.0 103/ul Normal 0.0-0.7 [facility] Comment on above: Performed By: #### H GBHCT #### [facility] [address] [place] [address] Dr. Benito To Eosinophils/100 WBC (Bld) 0.3 % Critically low 0.9-7.0 [facility] Comment on above: Performed By: #### H GBHCT #### [facility] [address] [place] [address] Dr. Benito To Erythrocyte distribution width (RBC) [Ratio] 23.7 % Critically high 11.0-15.0 [facility] Comment on above: Performed By: #### H GBHCT #### [facility] [address] [place] [address] Dr. Benito To Hematocrit (Bld) [Volume fraction] 23.7 % Critically low 42.0-54.0 [facility] Comment on above: Performed By: #### H GBHCT #### [facility] [address] [place] [address] Dr. Benito To Hemoglobin (Bld) [Mass/Vol] 7.6 g/dL Critically low 14.0-18.0 [facility] Comment on above: Performed By: #### H GBHCT #### [facility] [address] [place] [address] Dr. Benito To IG # 0.82 10e3/ul Critically high 0.00-0.03 [facility] Comment on above: Performed By: #### H GBHCT #### [facility] [address] [address] [address] Benito To IG % 7.0 % Critically high 0.0-0.5 [facility] Comment on above: Performed By: #### H GBHCT #### [facility] [address] [address] [address] Benito To LYMPH # 0.8 103/ul Critically low 1.2-3.8 [facility] Comment on above: Performed By: #### H GBHCT #### [facility] [address] [address] [address] Benito To Lymphocytes/100 WBC (Bld) 7.0 % Critically low 20.5-60.0 [facility] Comment on above: Performed By: #### H GBHCT #### [facility] [address] [address] [address] Benito To MANUAL DIFF REQ NO Normal [facility] Comment on above: Performed By: #### H GBHCT #### [facility] [address] [address] [address] Benito To MCH (RBC) [Entitic mass] 31.9 pg Normal 25.9-34.0 [facility] Comment on above: Performed By: #### H GBHCT #### [facility] [address] [address] [address] Benito To MCHC (RBC) [Mass/Vol] 32.1 g/dL Normal 29.9-35.2 [facility] Comment on above: Performed By: #### H GBHCT #### [facility] [address] [address] [address] Benito To MCV (RBC) [Entitic vol] 99.6 fL Critically high 80.0-94.0 [facility] Comment on above: Performed By: #### H GBHCT #### [facility] [address] [address] [address] Benito To MONO # 2.3 103/ul Critically high 0.3-0.8 [facility] Comment on above: Performed By: #### H GBHCT #### [facility] [address] [address] [address] Benito To Monocytes/100 WBC (Bld) 19.2 % Critically high 1.7-12.0 [facility] Comment on above: Performed By: #### H GBHCT #### [facility] [address] [address] [address] Benito To NEUT # 7.8 103/ul Critically high 1.4-6.5 [facility] Comment on above: Performed By: #### H GBHCT #### [facility] [address] [address] [address] Benito To Neutrophils/100 WBC (Bld) 66.2 % Normal 43.0-75.0 [facility] Comment on above: Performed By: #### H GBHCT #### [facility] [address] [place] [address] Dr. Benito To Platelet mean volume (Bld) [Entitic vol] 14.7 fL Critically high 9.5-13.5 [facility] Comment on above: Performed By: #### H GBHCT #### [facility] [address] [address] [address] Benito To PLT 73 103/ul Critically low 150-450 [facility] Comment on above: Performed By: #### H GBHCT #### [facility] [address] [place] [address] Dr. Benito To RBC 2.38 106/ul Critically low 4.70-6.10 [facility] Comment on above: Performed By: #### H GBHCT #### [facility] [address] [place] [address] Dr. Benito To WBC 11.7 103/ul Critically high 4.0-11.0 [facility] Comment on above: Performed By: #### H GBHCT #### [facility] [address] [place] [address] Dr. Benito To CBC W MANUAL DIFFon 11-15-19 23 ANISOCYTOSIS 3+ Normal [facility] Comment on above: Performed By: #### T NS, PRBC #### [facility] [address] [place] [address] Dr. Benito To ATYPICAL LYMPH # Normal [facility] Comment on above: Performed By: #### T NS, PRBC #### [facility] [address] [place] [address] Dr. Benito To ATYPICAL LYMPH % Normal [facility] Comment on above: Performed By: #### T NS, PRBC #### [facility] [address] [place] [address] Dr. Benito To BAND # 0.2 103/ul Normal 0.0-0.3 [facility] Comment on above: Performed By: #### T NS, PRBC #### [facility] [address] [place] [address] Dr. Benito To BAND % 2 % Normal 0-5 [facility] Comment on above: Performed By: #### T NS, PRBC #### [facility] [address] [place] [address] Dr. Benito To BASOM # 0.00 103/ul Normal 0.00-0.10 [facility] Comment on above: Performed By: #### T NS, PRBC #### [facility] [address] [place] [address] Dr. Benito To BASOM % 0.0 % Critically low 0.2-2.0 [facility] Comment on above: Performed By: #### T NS, PRBC #### [facility] [address] [place] [address] Dr. Benito To BLAST # Normal [facility] Comment on above: Performed By: #### T NS, PRBC #### [facility] [address] [place] [address] Dr. Benito To BLAST % Normal [facility] Comment on above: Performed By: #### T NS, PRBC #### [facility] [address] [place] [address] Dr. Benito To CORRECTED WBC Normal 4.0-11.0 [facility] Comment on above: Performed By: #### T NS, PRBC #### [facility] [address] [address] [address] Benito To EOS # 0.00 103/ul Normal 0.00-0.70 [facility] Comment on above: Performed By: #### T NS, PRBC #### [facility] [address] [address] [address] Benito To EOS% 0.0 % Critically low 0.9-7.0 [facility] Comment on above: Performed By: #### T NS, PRBC #### [facility] [address] [address] [address] Benito To HCT 20.3 % Critically low 42.0-54.0 [facility] Comment on above: Performed By: #### T NS, PRBC #### [facility] [address] [address] [address] Benito To HGB 6.4 g/dl Critically low 14.0-18.0 [facility] Comment on above: Performed By: #### T NS, PRBC #### [facility] [address] [address] [address] Benito To LYMPHM # 1.13 103/ul Critically low 1.20-3.80 [facility] Comment on above: Performed By: #### T NS, PRBC #### [facility] [address] [address] [address] Benito To LYMPHM% 10.0 % Critically low 20.5-60.0 [facility] Comment on above: Performed By: #### T NS, PRBC #### [facility] [address] [address] [address] Benito To MCH 31.5 pg Normal 25.9-34.0 [facility] Comment on above: Performed By: #### T NS, PRBC #### [facility] [address] [address] [address] Benito To MCHC 31.5 g/dl Normal 29.9-35.2 [facility] Comment on above: Performed By: #### T NS, PRBC #### [facility] [address] [place] [address] Dr. Benito To MCV 100.0 fL Critically high 80.0-94.0 [facility] Comment on above: Performed By: #### T NS, PRBC #### [facility] [address] [place] [address] Dr. Benito To METAMYELOCYTE # 0.5 103/ul Normal [facility] Comment on above: Performed By: #### T NS, PRBC #### [facility] [address] [place] [address] Dr. Benito To METAMYELOCYTE % 4 % Normal [facility] Comment on above: Performed By: #### T NS, PRBC #### [facility] [address] [place] [address] Dr. Benito To MICROCYTOSIS 1+ Normal [facility] Comment on above: Performed By: #### T NS, PRBC #### [facility] [address] [place] [address] Dr. Benito To MONOM# 0.90 103/ul Critically high 0.30-0.80 [facility] Comment on above: Performed By: #### T NS, PRBC #### [facility] [address] [place] [address] Dr. Benito To MONOM% 8.0 % Normal 1.7-12.0 [facility] Comment on above: Performed By: #### T NS, PRBC #### [facility] [address] [place] [address] Dr. Benito To MYELOCYTE # Normal [facility] Comment on above: Performed By: #### T NS, PRBC #### [facility] [address] [place] [address] Dr. Benito To MYELOCYTE % Normal [facility] Comment on above: Performed By: #### T NS, PRBC #### [facility] [address] [place] [address] Dr. Benito To NRBC Normal [facility] Comment on above: Performed By: #### T NS, PRBC #### [facility] [address] [place] [address] Dr. Benito To PLT 78 103/ul Critically low 150-450 [facility] Comment on above: Performed By: #### T NS, PRBC #### [facility] [address] [address] [address] Benito To RBC 2.03 106/ul Critically low 4.70-6.10 [facility] Comment on above: Performed By: #### T NS, PRBC #### [facility] [address] [address] [address] Benito To RDW 25.1 % Critically high 11.0-15.0 [facility] Comment on above: Performed By: #### T NS, PRBC #### [facility] [address] [address] [address] Benito To SEG # 8.59 103/ul Critically high 1.40-6.50 [facility] Comment on above: Performed By: #### T NS, PRBC #### [facility] [address] [address] [address] Benito To SEG % 76.0 % Critically high 43.0-75.0 [facility] Comment on above: Performed By: #### T NS, PRBC #### [facility] [address] [address] [address] Benito To WBC 11.3 103/ul Critically high 4.0-11.0 [facility] Comment on above: Performed By: #### T NS, PRBC #### [facility] [address] [address] [address] Benito To ECHOCARDIO M/2D COMPLETEon 0 11-14-2022 ECHOCARDIO M/2D COMPLETE Patient: SANDIP BROUSSARD Exam Date: 11/14/2022 : 1940 Gender:M Ordering : DR FLASH PEARL . Admission #: [id number] Family : Order #: [id number] CLICK HERE TO VIEW EXAM ECHOCARDIOGRAM REPORT [...] Unit Blood Type A Pos Unit Number [id number] Status Information Issued Product ID Red Blood Cells Product Code [id number] Issue Date/Time [id number] [facility] Comment on above: Performed By: #### P RBC, TNS #### [facility] [address] [place] [address] Dr. Benito To PROF 14(COMP METB)on 023 Albumin [Mass/Vol] 2.8 g/dL Critically low 3.4-5.0 [facility] Comment on above: Performed By: #### H H #### [facility] [address] [place] [address] Dr. Benito To Albumin/Globulin [Mass ratio] 0.6 {ratio} Normal [facility] Comment on above: Performed By: #### H H #### [facility] [address] [place] [address] Dr. Benito To ALP [Catalytic activity/Vol] 146 U/L Critically high 46-116 [facility] Comment on above: Performed By: #### H H #### [facility] [address] [address] [address] Benito To ALT [Catalytic activity/Vol] 55 U/L Normal 16-63 [facility] Comment on above: Performed By: #### H H #### [facility] [address] [address] [address] Benito To Anion gap [Moles/Vol] 12.9 mmol/L Normal Th e [facility] Comment on above: Performed By: #### H H #### [facility] [address] [address] [address] Benito To AST [Catalytic activity/Vol] 30 U/L Normal 15-37 [facility] Comment on above: Performed By: #### H H #### [facility] [address] [address] [address] Benito To Bilirubin [Mass/Vol] 1.3 mg/dL Critically high 0.2-1.0 [facility] Comment on above: Performed By: #### H H #### [facility] [address] [address] [address] Benito To Calcium [Mass/Vol] 8.6 mg/dL Normal 8.5-10.1 [facility] Comment on above: Performed By: #### H H #### [facility] [address] [address] [address] Benito To Chloride [Moles/Vol] 103 mmol/L Normal 98-107 [facility] Comment on above: Performed By: #### H H #### [facility] [address] [address] [address] Benito To CO2 [Moles/Vol] 32.2 mmol/L Critically high 21.0-32.0 [facility] Comment on above: Performed By: #### H H #### [facility] [address] [address] [address] Benito To Creatinine [Mass/Vol] 1.87 mg/dL Critically high 0.70-1.30 [facility] Comment on above: Performed By: #### H H #### [facility] [address] [address] [address] Benito To EGFR-AF MONTSERRATIAN 42 mL/min/1.73m2 Critically low >=60 [facility] Comment on above: Performed By: #### H H #### [facility] [address] [address] [address] Benito To EGFR-NON AF MONTSERRATIAN 35 mL/min/1.73m2 Critically low >=60 [facility] Comment on above: Performed By: #### H H #### [facility] [address] [address] [address] Benito To Globulin (S) [Mass/Vol] 4.6 g/dL Normal [facility] Comment on above: Performed By: #### H H #### [facility] [address] [address] [address] Benito To Glucose [Mass/Vol] 113 mg/dL Critically high 74-106 [facility] Comment on above: Performed By: #### H H #### [facility] [address] [address] [address] Benito To Potassium [Moles/Vol] 4.1 mmol/L Normal 3.5-5.1 [facility] Comment on above: Performed By: #### H H #### [facility] [address] [address] [address] Benito To Protein [Mass/Vol] 7.4 g/dL Normal 6.4-8.2 [facility] Comment on above: Performed By: #### H H #### [facility] [address] [address] [address] Benito To Sodium [Moles/Vol] 144 mmol/L Normal 136-145 [facility] Comment on above: Performed By: #### H H #### [facility] [address] [address] [address] Benito To Urea nitrogen [Mass/Vol] 39.0 mg/dL Critically high 7.0-18.0 [facility] Comment on above: Performed By: #### H H #### [facility] [address] [place] [address] Dr. Benito To Urea nitrogen/Creatinine [Mass ratio] 20.9 mg/mg Normal [facility] Comment on above: Performed By: #### H H #### [facility] [address] [place] [address] Dr. Benito To BNPon 11-13-2022 Natriuretic peptide B (Bld) [Mass/Vol] 5483.0 pg/mL Critically high <=1,800.0 [facility] Comment on above: Performed By: #### H GBHCT #### [facility] [address] [place] [address] Dr. Benito To CBC W MANUAL DIFFon 11-14-19 ANISOCYTOSIS SLIGHT Normal [facility] Comment on above: Performed By: #### T NS, PRBC #### [facility] [address] [place] [address] Dr. Benito To ATYPICAL LYMPH # Normal [facility] Comment on above: Performed By: #### T NS, PRBC #### [facility] [address] [place] [address] Dr. Benito To ATYPICAL LYMPH % Normal [facility] Comment on above: Performed By: #### T NS, PRBC #### [facility] [address] [place] [address] Dr. Benito To BAND # 0.2 103/ul Normal 0.0-0.3 [facility] Comment on above: Performed By: #### T NS, PRBC #### [facility] [address] [place] [address] Dr. Benito To BAND % 2 % Normal 0-5 [facility] Comment on above: Performed By: #### T NS, PRBC #### [facility] [address] [place] [address] Dr. Benito To BASOM # 0.00 103/ul Normal 0.00-0.10 [facility] Comment on above: Performed By: #### T NS, PRBC #### [facility] [address] [place] [address] Dr. Benito To BASOM % 0.0 % Critically low 0.2-2.0 [facility] Comment on above: Performed By: #### T NS, PRBC #### [facility] [address] [place] [address] Dr. Benito To BLAST # Normal [facility] Comment on above: Performed By: #### T NS, PRBC #### [facility] [address] [place] [address] Dr. Benito To BLAST % Normal [facility] Comment on above: Performed By: #### T NS, PRBC #### [facility] [address] [place] [address] Dr. Benito To CORRECTED WBC Normal 4.0-11.0 [facility] Comment on above: Performed By: #### T NS, PRBC #### [facility] [address] [place] [address] Dr. Benito To EOS # 0.00 103/ul Normal 0.00-0.70 [facility] Comment on above: Performed By: #### T NS, PRBC #### [facility] [address] [place] [address] Dr. Benito To EOS% 0.0 % Critically low 0.9-7.0 [facility] Comment on above: Performed By: #### T NS, PRBC #### [facility] [address] [place] [address] Dr. Benito To HCT 23.1 % Critically low 42.0-54.0 [facility] Comment on above: Performed By: #### T NS, PRBC #### [facility] [address] [place] [address] Dr. Benito To HGB 7.2 g/dl Critically low 14.0-18.0 [facility] Comment on above: Performed By: #### T NS, PRBC #### [facility] [address] [place] [address] Dr. Benito To LYMPHM # 1.38 103/ul Normal 1.20-3.80 [facility] Comment on above: Performed By: #### T NS, PRBC #### [facility] [address] [address] [address] Benito To LYMPHM% 13.0 % Critically low 20.5-60.0 [facility] Comment on above: Performed By: #### T NS, PRBC #### [facility] [address] [place] [address] Dr. Benito To MACROCYTOSIS SLIGHT Normal [facility] Comment on above: Performed By: #### T NS, PRBC #### [facility] [address] [place] [address] Dr. Benito To MCH 32.0 pg Normal 25.9-34.0 [facility] Comment on above: Performed By: #### T NS, PRBC #### [facility] [address] [place] [address] Dr. Benito To MCHC 31.2 g/dl Normal 29.9-35.2 [facility] Comment on above: Performed By: #### T NS, PRBC #### [facility] [address] [place] [address] Dr. Benito To MCV 102.7 fL Critically high 80.0-94.0 [facility] Comment on above: Performed By: #### T NS, PRBC #### [facility] [address] [place] [address] Dr. Benito To METAMYELOCYTE # Normal [facility] Comment on above: Performed By: #### T NS, PRBC #### [facility] [address] [place] [address] Dr. Benito To METAMYELOCYTE % Normal [facility] Comment on above: Performed By: #### T NS, PRBC #### [facility] [address] [place] [address] Dr. Benito To MONOM# 0.74 103/ul Normal 0.30-0.80 [facility] Comment on above: Performed By: #### T NS, PRBC #### [facility] [address] [place] [address] Dr. Benito To MONOM% 7.0 % Normal 1.7-12.0 [facility] Comment on above: Performed By: #### T NS, PRBC #### [facility] [address] [place] [address] Dr. Benito To MPV 0.0 fL Critically low 9.5-13.5 [facility] Comment on above: Performed By: #### T NS, PRBC #### [facility] [address] [place] [address] Dr. Benito To MYELOCYTE # 0.1 103/ul Normal [facility] Comment on above: Performed By: #### T NS, PRBC #### [facility] [address] [place] [address] Dr. Benito To MYELOCYTE % 1 % Normal [facility] Comment on above: Performed By: #### T NS, PRBC #### [facility] [address] [place] [address] Dr. Benito To NRBC Normal [facility] Comment on above: Performed By: #### T NS, PRBC #### [facility] [address] [place] [address] Dr. Benito To PLT 67 103/ul Critically low 150-450 [facility] Comment on above: Performed By: #### T NS, PRBC #### [facility] [address] [place] [address] Dr. Benito To RBC 2.25 106/ul Critically low 4.70-6.10 [facility] Comment on above: Performed By: #### T NS, PRBC #### [facility] [address] [place] [address] Dr. Benito To RDW 25.2 % Critically high 11.0-15.0 [facility] Comment on above: Performed By: #### T NS, PRBC #### [facility] [address] [place] [address] Dr. Benito To SEG # 8.16 103/ul Critically high 1.40-6.50 [facility] Comment on above: Performed By: #### T NS, PRBC #### [facility] [address] [place] [address] Dr. Benito To SEG % 77.0 % Critically high 43.0-75.0 [facility] Comment on above: Performed By: #### T NS, PRBC #### [facility] [address] [place] [address] Dr. Benito To WBC 10.6 103/ul Normal 4.0-11.0 [facility] Comment on above: Performed By: #### T NS, PRBC #### [facility] [address] [place] [address] Dr. Benito To Covid-19 PCR [facility]26 SARS-CoV-2 (COVID-19) RNA JOSSIE+probe Ql (Unsp spec) Not detected Normal NOT DETECTED [facility] Comment on above: Result Comment: When [...] for this test is supported by the [place] of Health and Human Service's declaration that [...] Performed By: #### T NS, PRBC #### [facility] [address] [place] [address] Dr. Benito To FERRITINon 11-13-2022 Ferritin [Mass/Vol] 6375.0 ng/mL Critically high 26.0-388. 0 [facility] Comment on above: Performed By: #### T NS, PRBC #### [facility] [address] [place] [address] Dr. Benito To IRON AND TIBCon 11-13-2022 Iron [Mass/Vol] 148.0 ug/dL Normal 65.0-175.0 [facility] Comment on above: Performed By: #### T NS, PRBC #### [facility] [address] [address] [address] Benito To TIBC DIRECT 145.0 ug/dL Critically low 250.0-450.0 [facility] Comment on above: Performed By: #### T NS, PRBC #### [facility] [address] [place] [address] Dr. Benito To PROF 14(COMP METB)on 023 Albumin [Mass/Vol] 2.7 g/dL Critically low 3.4-5.0 [facility] Comment on above: Performed By: #### H GBHCT #### [facility] [address] [place] [address] Dr. Benito To Albumin/Globulin [Mass ratio] 0.6 {ratio} Normal [facility] Comment on above: Performed By: #### H GBHCT #### [facility] [address] [place] [address] Dr. Benito To ALP [Catalytic activity/Vol] 140 U/L Critically high 46-116 [facility] Comment on above: Performed By: #### H GBHCT #### [facility] [address] [place] [address] Dr. Benito To ALT [Catalytic activity/Vol] 53 U/L Normal 16-63 [facility] Comment on above: Performed By: #### H GBHCT #### [facility] [address] [place] [address] Dr. Benito To Anion gap [Moles/Vol] 14.4 mmol/L Normal [facility] Comment on above: Performed By: #### H GBHCT #### [facility] [address] [place] [address] Dr. Benito To AST [Catalytic activity/Vol] 31 U/L Normal 15-37 [facility] Comment on above: Performed By: #### H GBHCT #### [facility] [address] [address] [address] Benito To Bilirubin [Mass/Vol] 1.3 mg/dL Critically high 0.2-1.0 [facility] Comment on above: Performed By: #### H GBHCT #### [facility] [address] [place] [address] Dr. Benito To Calcium [Mass/Vol] 8.8 mg/dL Normal 8.5-10.1 [facility] Comment on above: Performed By: #### H GBHCT #### [facility] [address] [address] [address] Benito To Chloride [Moles/Vol] 103 mmol/L Normal 98-107 [facility] Comment on above: Performed By: #### H GBHCT #### [facility] [address] [place] [address] Dr. Benito To CO2 [Moles/Vol] 29.7 mmol/L Normal 21.0-32.0 [facility] Comment on above: Performed By: #### H GBHCT #### [facility] [address] [address] [address] Benito To Creatinine [Mass/Vol] 1.95 mg/dL Critically high 0.70-1.30 [facility] Comment on above: Performed By: #### H GBHCT #### [facility] [address] [place] [address] Dr. Benito To EGFR-AF MONTSERRATIAN 40 mL/min/1.73m2 Critically low >=60 [facility] Comment on above: Performed By: #### H GBHCT #### [facility] [address] [place] [address] Dr. Benito To EGFR-NON AF MONTSERRATIAN 33 mL/min/1.73m2 Critically low >=60 [facility] Comment on above: Performed By: #### H GBHCT #### [facility] [address] [place] [address] Dr. Benito To Globulin (S) [Mass/Vol] 4.7 g/dL Normal [facility] Comment on above: Performed By: #### H GBHCT #### [facility] [address] [address] [address] Benito To Glucose [Mass/Vol] 198 mg/dL Critically high 74-106 T [facility] Comment on above: Performed By: #### H GBHCT #### [facility] [address] [address] [address] Benito To Potassium [Moles/Vol] 4.1 mmol/L Normal 3.5-5.1 [facility] Comment on above: Performed By: #### H GBHCT #### [facility] [address] [address] [address] Benito To Protein [Mass/Vol] 7.4 g/dL Normal 6.4-8.2 [facility] Comment on above: Performed By: #### H GBHCT #### [facility] [address] [place] [address] Dr. Benito To Sodium [Moles/Vol] 143 mmol/L Normal 136-145 [facility] Comment on above: Performed By: #### H GBHCT #### [facility] [address] [address] [address] Benito To Urea nitrogen [Mass/Vol] 39.0 mg/dL Critically high 7.0-18.0 [facility] Comment on above: Performed By: #### H GBHCT #### [facility] [address] [address] [address] Benito To Urea nitrogen/Creatinine [Mass ratio] 20.0 mg/mg Normal [facility] Comment on above: Performed By: #### H GBHCT #### [facility] [address] [address] [address] Benito To TROPONIN, HIGH SENSITIVITYon 11-13-2022 HSTROP 47.8 pg/mL Normal 4.0-76.1 [facility] Comment on above: Result Comment: CUT- OFF POINTS HAVE BEEN ESTABLISHED BASED ON THE FOURTH UNIVERSAL DEFINITIONS OF MYOCARDIAL INFARCTION. THE UPPER REFERENCE LIMIT (URL) OF TROPONIN, DEFINED THE 99TH PERCENTILE OF cTnI DISTRIBUTION IN A REFERENCE POPULATION, HAS BEEN CONFIRMED THE DECISION THRESHOLD FOR [place] DIAGNOSIS. Performed By: #### H GBHCT #### [facility] [address] [address] [address] Benito To TYPE AND SCREENon 11-13-2022 TYPE AND SCREEN Negative Normal [facility] Comment on above: Performed By: #### T NS, PRBC #### [facility] [address] [address] [address] Benito To XR CHEST 1 Von [...] OUMOU MONTIEL Date: 2022-11-13 13:36 Normal [facility] PRBC LEUKOREDUCEDon 11-11-19 ABO and Rh group Nom (Bld) Cross Match Result Compatible Unit Blood Type A Pos Unit Number [id number] Status Information Transfused Product ID Red Blood Cells Product Code [id number] Cross Match Result Compatible Unit Blood Type A Pos Unit Number [id number] Status Information Transfused Product ID Red Blood Cells Product Code [id number] Normal [facility] Comment on above: Performed By: #### H H #### [facility] [address] [address] [address] Benito To HEMOGLOBIN AND HEMATOCRITon 11-06-2022 Hematocrit (Bld) [Volume fraction] 20.3 % Critically low 42.0-54.0 [facility] Comment on above: Performed By: #### T NS, PRBC #### [facility] [address] [address] [address] Benito To Hemoglobin (Bld) [Mass/Vol] 6.4 g/dL Critically low 14.0-18.0 [facility] Comment on above: Performed By: #### T NS, PRBC #### [facility] [address] [place] [address] Dr. Benito To TYPE AND SCREENon 11-06-2022 TYPE AND SCREEN Negative Normal [facility] Comment on above: Performed By: #### H H #### [facility] [address] [place] [address] Dr. Benito To PRBC LEUKOREDUCEDon 11-01-19 ABO and Rh group Nom (Bld) Cross Match Result Compatible Unit Blood Type A Pos Unit Number [id number] Status Information Transfused Product ID Red Blood Cells Product Code [id number] Cross Match Result Compatible Unit Blood Type A Pos Unit Number [id number] Status Information Transfused Product ID Red Blood Cells Product Code [id number] Normal [facility] Comment on above: Performed By: #### T NS, PRBC #### [facility] [address] [place] [address] Dr. Benito To ABO and Rh group Nom (Bld) Cross Match Result Compatible Unit Blood Type A Pos Unit Number [id number] Status Information Transfused Product ID Red Blood Cells Product Code [id number] Cross Match Result Compatible Unit Blood Type A Pos Unit Number [id number] Status Information Transfused Product ID Red Blood Cells Product Code [id number] Normal [facility] Comment on above: Performed By: #### T NS, PRBC #### [facility] [address] [place] [address] Dr. Benito To HEMOGRAM AND PLATELon 2022 Hematocrit (Bld) [Volume fraction] 21.7 % Critically low 42.0-54.0 [facility] Comment on above: Performed By: #### T NS, PRBC #### [facility] [address] [place] [address] Dr. Benito To Hemoglobin (Bld) [Mass/Vol] 6.9 g/dL Critically low 14.0-18.0 [facility] Comment on above: Performed By: #### T NS, PRBC #### [facility] [address] [address] [address] Benito To MCH (RBC) [Entitic mass] 31.7 pg Normal 25.9-34.0 [facility] Comment on above: Performed By: #### T NS, PRBC #### [facility] [address] [place] [address] Dr. Benito To MCHC (RBC) [Mass/Vol] 31.8 g/dL Normal 29.9-35.2 [facility] Comment on above: Performed By: #### T NS, PRBC #### [facility] [address] [place] [address] Dr. Benito To MCV (RBC) [Entitic vol] 99.5 fL Critically high 80.0-94.0 [facility] Comment on above: Performed By: #### T NS, PRBC #### [facility] [address] [place] [address] Dr. Benito To PLT 54 103/ul Critically low 150-450 [facility] Comment on above: Performed By: #### T NS, PRBC #### [facility] [address] [place] [address] Dr. Benito To RBC 2.18 106/ul Critically low 4.70-6.10 [facility] Comment on above: Performed By: #### T NS, PRBC #### [facility] [address] [place] [address] Dr. Benito To WBC 4.3 103/ul Normal 4.0-11.0 [facility] Comment on above: Performed By: #### T NS, PRBC #### [facility] [address] [place] [address] Dr. Benito To TYPE AND SCREENon 10-25-2022 TYPE AND SCREEN Negative Normal [facility] Comment on above: Performed By: #### T NS, PRBC #### [facility] [address] [place] [address] Dr. Benito To HEMOGRAM AND PLATELon 2022 Hematocrit (Bld) [Volume fraction] 19.3 % Critically low 42.0-54.0 [facility] Comment on above: Performed By: #### T NS, PRBC #### [facility] [address] [place] [address] Dr. Benito To Hemoglobin (Bld) [Mass/Vol] 6.3 g/dL Critically low 14.0-18.0 [facility] Comment on above: Performed By: #### T NS, PRBC #### [facility] [address] [place] [address] Dr. Benito To MCH (RBC) [Entitic mass] 32.6 pg Normal 25.9-34.0 [facility] Comment on above: Performed By: #### T NS, PRBC #### [facility] [address] [place] [address] Dr. Benito To MCHC (RBC) [Mass/Vol] 32.6 g/dL Normal 29.9-35.2 [facility] Comment on above: Performed By: #### T NS, PRBC #### [facility] [address] [place] [address] Dr. Benito To MCV (RBC) [Entitic vol] 100.0 fL Critically high 80.0-94.0 [facility] Comment on above: Performed By: #### T NS, PRBC #### [facility] [address] [place] [address] Dr. Benito To PLT 53 103/ul Critically low 150-450 [facility] Comment on above: Performed By: #### T NS, PRBC #### [facility] [address] [place] [address] Dr. Benito To RBC 1.93 106/ul Critically low 4.70-6.10 [facility] Comment on above: Performed By: #### T NS, PRBC #### [facility] [address] [place] [address] Dr. Benito To WBC 2.8 103/ul Critically low 4.0-11.0 [facility] Comment on above: Performed By: #### T NS, PRBC #### [facility] [address] [place] [address] Dr. Benito To PRBC LEUKOREDUCEDon 10-17-19 23 PRBC LEUKOREDUCED Cross Match Result Compatible Unit Blood Type A Pos Unit Number [id number] Status Information Transfused Product ID Red Blood Cells Product Code [id number] Normal [facility] Comment on above: Performed By: #### T NS, PRBC #### [facility] [address] [place] [address] Dr. Benito To TYPE AND SCREENon 10-16-2022 TYPE AND SCREEN Negative Normal [facility] Comment on above: Performed By: #### T NS, PRBC #### [facility] [address] [place] [address] Dr. Benito To HEMOGLOBIN AND HEMATOCRITon 10-02-2022 Hematocrit (Bld) [Volume fraction] 24.6 % Critically low 42.0-54.0 [facility] Comment on above: Performed By: #### H GBHCT #### [facility] [address] [place] [address] Dr. Benito To Hemoglobin (Bld) [Mass/Vol] 7.9 g/dL Critically low 14.0-18.0 [facility] Comment on above: Performed By: #### H GBHCT #### [facility] [address] [place] [address] Dr. Benito To TYPE AND SCREENon 10-02-2022 TYPE AND SCREEN Negative Normal [facility] Comment on above: Performed By: #### T NS, PRBC #### [facility] [address] [place] [address] Dr. Benito To PRBC LEUKOREDUCEDon 10-02-19 23 ABO and Rh group Nom (Bld) Cross Match Result Compatible Unit Blood Type A Pos Unit Number [id number] Status Information Transfused Product ID Red Blood Cells Product Code [id number] Cross Match Result Compatible Unit Blood Type A Pos Unit Number [id number] Status Information Transfused Product ID Red Blood Cells Product Code [id number] Normal [facility] Comment on above: Performed By: #### T NS, PRBC #### [facility] [address] [place] [address] Dr. Benito To ABO and Rh group Nom (Bld) Cross Match Result Compatible Unit Blood Type A Pos Unit Number [id number] Status Information Transfused Product ID Red Blood Cells Product Code [id number] Cross Match Result Compatible Unit Blood Type A Pos Unit Number [id number] Status Information Transfused Product ID Red Blood Cells Product Code [id number] Normal [facility] Comment on above: Performed By: #### P RBC, TNS #### [facility] [address] [place] [address] Dr. Benito To ABO and Rh group Nom (Bld) Cross Match Result Compatible Unit Blood Type A Pos Unit Number [id number] Status Information Released Specimen Exp Date Product ID Red Blood Cells Product Code [id number] Cross Match Result Compatible Unit Blood Type A Pos Unit Number [id number] Status Information Transfused Product ID Red Blood Cells Product Code [id number] [facility] Comment on above: Performed By: #### P RBC, TNS #### [facility] [address] [place] [address] Dr. Benito To PRBC LEUKOREDUCED Cross Match Result Compatible Unit Blood Type O Neg Unit Number [id number] Status Information Transfused Product ID Red Blood Cells Product Code [id number] [facility] Comment on above: Performed By: #### P RBC, TNS #### [facility] [address] [place] [address] Dr. Benito To HEMOGLOBIN AND HEMATOCRITon 09-25-2022 Hematocrit (Bld) [Volume fraction] 21.2 % Critically low 42.0-54.0 [facility] Comment on above: Performed By: #### T NS, PRBC #### [facility] [address] [place] [address] Dr. Benito To Hemoglobin (Bld) [Mass/Vol] 6.7 g/dL Critically low 14.0-18.0 [facility] Comment on above: Performed By: #### T NS, PRBC #### [facility] [address] [place] [address] Dr. Benito To TYPE AND SCREENon 09-25-2022 TYPE AND SCREEN Negative Normal [facility] Comment on above: Performed By: #### P RBC, TNS #### [facility] [address] [place] [address] Dr. Benito To HEMOGRAM AND PLATELon 2022 Hematocrit (Bld) [Volume fraction] 22.3 % Critically low 42.0-54.0 [facility] Comment on above: Performed By: #### H H #### [facility] [address] [place] [address] Dr. Benito To Hemoglobin (Bld) [Mass/Vol] 7.3 g/dL Critically low 14.0-18.0 [facility] Comment on above: Performed By: #### H H #### [facility] [address] [place] [address] Dr. Benito To MCH (RBC) [Entitic mass] 32.0 pg Normal 25.9-34.0 [facility] Comment on above: Performed By: #### H H #### [facility] [address] [place] [address] Dr. Benito To MCHC (RBC) [Mass/Vol] 32.7 g/dL Normal 29.9-35.2 [facility] Comment on above: Performed By: #### H H #### [facility] [address] [place] [address] Dr. Benito To MCV (RBC) [Entitic vol] 97.8 fL Critically high 80.0-94.0 [facility] Comment on above: Performed By: #### H H #### [facility] [address] [place] [address] Dr. Benito To PLT 49 103/ul Critically low 150-450 [facility] Comment on above: Performed By: #### H H #### [facility] [address] [place] [address] Dr. Benito To RBC 2.28 106/ul Critically low 4.70-6.10 [facility] Comment on above: Performed By: #### H H #### [facility] [address] [place] [address] Dr. Benito To WBC 2.4 103/ul Critically low 4.0-11.0 [facility] Comment on above: Performed By: #### H H #### [facility] [address] [place] [address] Dr. Benito To TYPE AND SCREENon 09-11-2022 TYPE AND SCREEN Negative Normal [facility] Comment on above: Performed By: #### P RBC, TNS #### [facility] [address] [place] [address] Dr. Benito To HEMOGLOBIN AND HEMATOCRITon 09-05-2022 Hematocrit (Bld) [Volume fraction] 20.7 % Critically low 42.0-54.0 [facility] Comment on above: Performed By: #### T NS, PRBC #### [facility] [address] [place] [address] Dr. Benito To Hemoglobin (Bld) [Mass/Vol] 6.8 g/dL Critically low 14.0-18.0 [facility] Comment on above: Performed By: #### T NS, PRBC #### [facility] [address] [place] [address] Dr. Benito To TYPE AND SCREENon 09-05-2022 TYPE AND SCREEN Negative Normal [facility] Comment on above: Performed By: #### T NS, PRBC #### [facility] [address] [place] [address] Dr. Benito To PRBC LEUKOREDUCEDon 08-24-19 ABO and Rh group Nom (Bld) Cross Match Result Compatible Unit Blood Type O Pos Unit Number [id number] Status Information Transfused Product ID Red Blood Cells Product Code [id number] Cross Match Result Compatible Unit Blood Type O Pos Unit Number [id number] Status Information Transfused Product ID Red Blood Cells Product Code [id number] Normal [facility] Comment on above: Performed By: #### T NS, PRBC #### [facility] [address] [place] [address] Dr. Benito To ABO and Rh group Nom (Bld) Cross Match Result Compatible Unit Blood Type A Pos Unit Number [id number] Status Information Transfused Product ID Red Blood Cells Product Code [id number] Cross Match Result Compatible Unit Blood Type A Pos Unit Number [id number] Status Information Transfused Product ID Red Blood Cells Product Code [id number] Normal [facility] Comment on above: Performed By: #### P RBC, TNS #### [facility] [address] [place] [address] Dr. Benito oT HEMOGRAM AND PLATELon 2022 Hematocrit (Bld) [Volume fraction] 26.2 % Critically low 42.0-54.0 [facility] Comment on above: Performed By: #### T NS, PRBC #### [facility] [address] [place] [address] Dr. Benito To Hemoglobin (Bld) [Mass/Vol] 7.7 g/dL Critically low 14.0-18.0 [facility] Comment on above: Performed By: #### T NS, PRBC #### [facility] [address] [place] [address] Dr. Benito To MCH (RBC) [Entitic mass] 30.2 pg Normal 25.9-34.0 [facility] Comment on above: Performed By: #### T NS, PRBC #### [facility] [address] [place] [address] Dr. Benito To MCHC (RBC) [Mass/Vol] 29.4 g/dL Critically low 29.9-35.2 [facility] Comment on above: Performed By: #### T NS, PRBC #### [facility] [address] [place] [address] Dr. Benito To MCV (RBC) [Entitic vol] 102.7 fL Critically high 80.0-94.0 [facility] Comment on above: Performed By: #### T NS, PRBC #### [facility] [address] [place] [address] Dr. Benito To PLT 44 103/ul Critically low 150-450 [facility] Comment on above: Performed By: #### T NS, PRBC #### [facility] [address] [place] [address] Dr. Benito To RBC 2.55 106/ul Critically low 4.70-6.10 [facility] Comment on above: Performed By: #### T NS, PRBC #### [facility] [address] [place] [address] Dr. Benito To WBC 1.8 103/ul Critically low 4.0-11.0 [facility] Comment on above: Performed By: #### T NS, PRBC #### [facility] [address] [place] [address] Dr. Benito To TYPE AND SCREENon 08-21-2022 TYPE AND SCREEN Negative Normal [facility] Comment on above: Performed By: #### T NS, PRBC #### [facility] [address] [place] [address] Dr. Benito To HEMOGRAM AND PLATELon 2022 Hematocrit (Bld) [Volume fraction] 22.4 % Critically low 42.0-54.0 [facility] Comment on above: Performed By: #### H H #### [facility] [address] [place] [address] Dr. Benito To Hemoglobin (Bld) [Mass/Vol] 7.2 g/dL Critically low 14.0-18.0 [facility] Comment on above: Performed By: #### H H #### [facility] [address] [place] [address] Dr. Benito To MCH (RBC) [Entitic mass] 30.9 pg Normal 25.9-34.0 [facility] Comment on above: Performed By: #### H H #### [facility] [address] [place] [address] Dr. Benito To MCHC (RBC) [Mass/Vol] 32.1 g/dL Normal 29.9-35.2 [facility] Comment on above: Performed By: #### H H #### [facility] [address] [place] [address] Dr. Benito To MCV (RBC) [Entitic vol] 96.1 fL Critically high 80.0-94.0 [facility] Comment on above: Performed By: #### H H #### [facility] [address] [place] [address] Dr. Benito To PLT 59 103/ul Critically low 150-450 [facility] Comment on above: Performed By: #### H H #### [facility] [address] [place] [address] Dr. Benito To RBC 2.33 106/ul Critically low 4.70-6.10 [facility] Comment on above: Performed By: #### H H #### [facility] [address] [place] [address] Dr. Benito To WBC 1.8 103/ul Critically low 4.0-11.0 [facility] Comment on above: Performed By: #### H H #### [facility] [address] [place] [address] Dr. Benito To TYPE AND SCREENon 08-14-2022 TYPE AND SCREEN Negative Normal [facility] Comment on above: Performed By: #### P RBC, TNS #### [facility] [address] [place] [address] Dr. Benito To PRBC LEUKOREDUCEDon 08-12-19 PRBC LEUKOREDUCED Cross Match Result Compatible Unit Blood Type A Pos Unit Number [id number] Status Information Transfused Product ID Red Blood Cells Product Code [id number] Normal [facility] Comment on above: Performed By: #### P RBC, TNS #### [facility] [address] [place] [address] Dr. Benito To HEMOGLOBIN AND HEMATOCRITon 08-08-2022 Hematocrit (Bld) [Volume fraction] 23.4 % Critically low 42.0-54.0 [facility] Comment on above: Performed By: #### H H #### [facility] [address] [place] [address] Dr. Benito To Hemoglobin (Bld) [Mass/Vol] 7.0 g/dL Critically low 14.0-18.0 [facility] Comment on above: Performed By: #### H H #### [facility] [address] [place] [address] Dr. Benito To TYPE AND SCREENon 08-08-2022 TYPE AND SCREEN Negative [facility] Comment on above: Performed By: #### P RBC, TNS #### [facility] [address] [place] [address] Dr. Benito To PRBC LEUKOREDUCEDon 07-27-20 22 ABO and Rh group Nom (Bld) Cross Match Result Compatible Unit Blood Type A Pos Unit Number [id number] Status Information Transfused Product ID Red Blood Cells Product Code [id number] Cross Match Result Compatible Unit Blood Type A Pos Unit Number [id number] Status Information Transfused Product ID Red Blood Cells Product Code [id number] [facility] Comment on above: Performed By: #### H H #### [facility] [address] [place] [address] Dr. Benito To PRBC LEUKOREDUCEDon 07-25-20 22 ABO and Rh group Nom (Bld) Cross Match Result Compatible Unit Blood Type A Pos Unit Number [id number] Status Information Transfused Product ID Red Blood Cells Product Code [id number] Cross Match Result Compatible Unit Blood Type A Pos Unit Number [id number] Status Information Transfused Product ID Red Blood Cells Product Code [id number] [facility] Comment on above: Performed By: #### P RBC, TNS #### [facility] [address] [place] [address] Dr. Benito To ABO and Rh group Nom (Bld) Cross Match Result Compatible Unit Blood Type O Neg Unit Number [id number] Status Information Transfused Product ID Red Blood Cells Product Code [id number] Cross Match Result Compatible Unit Blood Type O Pos Unit Number [id number] Status Information Transfused Product ID Red Blood Cells Product Code [id number] [facility] Comment on above: Performed By: #### T NS, PRBC #### [facility] [address] [place] [address] Dr. Benito To ABO and Rh group Nom (Bld) Cross Match Result Compatible Unit Blood Type A Pos Unit Number [id number] Status Information Transfused Product ID Red Blood Cells Product Code Q1984Y54 Cross Match Result Compatible Unit Blood Type A Pos Unit Number [id number] Status Information Transfused Product ID Red Blood Cells Product Code I1742O18 Normal [facility] Comment on above: Performed By: #### P RBC, TNS #### [facility] [address] [place] [address] Dr. Benito To PRBC LEUKOREDUCED Cross Match Result Compatible Unit Blood Type A Pos Unit Number [id number] Status Information Transfused Product ID Red Blood Cells Product Code [id number] Normal [facility] Comment on above: Performed By: #### T NS, PRBC #### [facility] [address] [place] [address] Dr. Benito To PRBC LEUKOREDUCED Cross Match Result Compatible Unit Blood Type A Pos Unit Number [id number] Status Information Transfused Product ID Red Blood Cells Product Code [id number] Normal [facility] Comment on above: Performed By: #### H GBHCT #### [facility] [address] [place] [address] Dr. Benito To HEMOGLOBIN AND HEMATOCRITon 07-24-2022 Hematocrit (Bld) [Volume fraction] 22.2 % Critically low 42.0-54.0 [facility] Comment on above: Performed By: #### T NS, PRBC #### [facility] [address] [place] [address] Dr. Benito To Hemoglobin (Bld) [Mass/Vol] 7.0 g/dL Critically low 14.0-18.0 [facility] Comment on above: Performed By: #### T NS, PRBC #### [facility] [address] [place] [address] Dr. Benito To TYPE AND SCREENon 07-24-2022 TYPE AND SCREEN Negative Normal [facility] Comment on above: Performed By: #### T NS, PRBC #### [facility] [address] [place] [address] Dr. Benito To HEMOGLOBIN AND HEMATOCRITon 07-16-2022 Hematocrit (Bld) [Volume fraction] 24.9 % Critically low 42.0-54.0 [facility] Comment on above: Performed By: #### H H #### [facility] [address] [place] [address] Dr. Benito To Hemoglobin (Bld) [Mass/Vol] 7.8 g/dL Critically low 14.0-18.0 [facility] Comment on above: Performed By: #### H H #### [facility] [address] [place] [address] Dr. Benito To TYPE AND SCREENon 07-16-2022 TYPE AND SCREEN Negative Normal [facility] Comment on above: Performed By: #### H GBHCT #### [facility] [address] [place] [address] Dr. Benito To TYPE AND SCREENon 07-09-2022 TYPE AND SCREEN Negative Normal [facility] Comment on above: Performed By: #### P RBC, TNS #### [facility] [address] [place] [address] Dr. Benito To HEMOGRAM AND PLATELon 2021 Hematocrit (Bld) [Volume fraction] 22.7 % Critically low 42.0-54.0 [facility] Comment on above: Performed By: #### T NS, PRBC #### [facility] [address] [place] [address] Dr. Benito To Hemoglobin (Bld) [Mass/Vol] 7.2 g/dL Critically low 14.0-18.0 [facility] Comment on above: Performed By: #### T NS, PRBC #### [facility] [address] [place] [address] Dr. Benito To MCH (RBC) [Entitic mass] 31.3 pg Normal 25.9-34.0 [facility] Comment on above: Performed By: #### T NS, PRBC #### [facility] [address] [place] [address] Dr. Benito To MCHC (RBC) [Mass/Vol] 31.7 g/dL Normal 29.9-35.2 [facility] Comment on above: Performed By: #### T NS, PRBC #### [facility] [address] [place] [address] Dr. Benito To MCV (RBC) [Entitic vol] 98.7 fL Critically high 80.0-94.0 [facility] Comment on above: Performed By: #### T NS, PRBC #### [facility] [address] [place] [address] Dr. Benito To PLT 66 103/ul Critically low 150-450 [facility] Comment on above: Performed By: #### T NS, PRBC #### [facility] [address] [place] [address] Dr. Benito To RBC 2.30 106/ul Critically low 4.70-6.10 [facility] Comment on above: Performed By: #### T NS, PRBC #### [facility] [address] [place] [address] Dr. Benito To WBC 1.7 103/ul Critically low 4.0-11.0 [facility] Comment on above: Performed By: #### T NS, PRBC #### [facility] [address] [place] [address] Dr. Benito To HEMOGLOBIN AND HEMATOCRITon 06-25-2022 Hematocrit (Bld) [Volume fraction] 24.6 % Critically low 42.0-54.0 [facility] Comment on above: Performed By: #### T NS, PRBC #### [facility] [address] [place] [address] Dr. Benito To Hemoglobin (Bld) [Mass/Vol] 8.0 g/dL Critically low 14.0-18.0 [facility] Comment on above: Performed By: #### T NS, PRBC #### [facility] [address] [place] [address] Dr. Benito To TYPE AND SCREENon 06-25-2022 TYPE AND SCREEN Negative Normal [facility] Comment on above: Performed By: #### T NS, PRBC #### [facility] [address] [place] [address] Dr. Benito To HEMOGLOBIN AND HEMATOCRITon 06-17-2022 Hematocrit (Bld) [Volume fraction] 25.0 % Critically low 42.0-54.0 [facility] Comment on above: Performed By: #### T NS, PRBC #### [facility] [address] [place] [address] Dr. Benito To Hemoglobin (Bld) [Mass/Vol] 8.0 g/dL Critically low 14.0-18.0 [facility] Comment on above: Performed By: #### T NS, PRBC #### [facility] [address] [place] [address] Dr. Benito To TYPE AND SCREENon 06-17-2022 TYPE AND SCREEN Negative Normal [facility] Comment on above: Performed By: #### T NS, PRBC #### [facility] [address] [place] [address] Dr. Benito To HEMOGLOBIN AND HEMATOCRITon 06-11-2022 Hematocrit (Bld) [Volume fraction] 21.3 % Critically low 42.0-54.0 [facility] Comment on above: Performed By: #### T NS, PRBC #### [facility] [address] [place] [address] Dr. Benito To Hemoglobin (Bld) [Mass/Vol] 7.1 g/dL Critically low 14.0-18.0 [facility] Comment on above: Performed By: #### T NS, PRBC #### [facility] [address] [place] [address] Dr. Benito To TYPE AND SCREENon 06-11-2022 TYPE AND SCREEN Negative Normal [facility] Comment on above: Performed By: #### P RBC, TNS #### [facility] [address] [place] [address] Dr. Benito To HEMOGLOBIN AND HEMATOCRITon 06-07-2022 Hematocrit (Bld) [Volume fraction] 23.0 % Critically low 42.0-54.0 [facility] Comment on above: Performed By: #### H H #### [facility] [address] [place] [address] Dr. Benito To Hemoglobin (Bld) [Mass/Vol] 7.7 g/dL Critically low 14.0-18.0 [facility] Comment on above: Performed By: #### H H #### [facility] [address] [place] [address] Dr. Bentio To PRBC LEUKOREDUCEDon 06-06-20 22 ABO and Rh group Nom (Bld) Cross Match Result Compatible Unit Blood Type A Pos Unit Number [id number] Status Information Transfused Product ID Red Blood Cells Product Code [id number] Cross Match Result Compatible Unit Blood Type O Neg Unit Number [id number] Status Information Transfused Product ID Red Blood Cells Product Code [id number] Normal [facility] Comment on above: Performed By: #### H H #### [facility] [address] [place] [address] Dr. Benito To HEMOGLOBIN AND HEMATOCRITon 06-04-2022 Hematocrit (Bld) [Volume fraction] 20.4 % Critically low 42.0-54.0 [facility] Comment on above: Performed By: #### H GBHCT #### [facility] [address] [place] [address] Dr. Benito To Hemoglobin (Bld) [Mass/Vol] 6.5 g/dL Critically low 14.0-18.0 [facility] Comment on above: Performed By: #### H GBHCT #### [facility] [address] [place] [address] Dr. Benito To TYPE AND SCREENon 06-04-2022 TYPE AND SCREEN Negative Normal [facility] Comment on above: Performed By: #### H H #### [facility] [address] [place] [address] Dr. Benito To PRBC LEUKOREDUCEDon 05-28-20 22 PRBC LEUKOREDUCED Cross Match Result Compatible Unit Blood Type A Pos Unit Number [id number] Status Information Transfused Product ID Red Blood Cells Product Code [id number] Normal [facility] Comment on above: Performed By: #### T NS, PRBC #### [facility] [address] [place] [address] Dr. Benito To Comprehensive metabolic 2000 panelon 05-27-2022 Albumin [Mass/Vol] 4.0 g/dL 3.9 - 4.9 g/dL [facility] ALP [Catalytic activity/Vol] 105 U/L 38 - 113 U/L [facility] ALT [Catalytic activity/Vol] 45 U/L 10 - 54 U/L [facility] Anion gap [Moles/Vol] 6 mmol/L Low 9 - 18 mmol/L [facility] AST [Catalytic activity/Vol] 18 U/L 14 - 40 U/L [facility] Bilirubin [Mass/Vol] 0.9 mg/dL 0.2 - 1.3 mg/dL [facility] Calcium [Mass/Vol] 8.7 mg/dL 8.5 - 10.2 mg/dL [facility] Chloride [Moles/Vol] 106 mmol/L High 97 - 105 mmol/L [facility] CO2 [Moles/Vol] 33 mmol/L High 22 - 30 mmol/L [facility] Creatinine [Mass/Vol] 1.64 mg/dL High 0.73 - 1.22 mg /dL [facility] Estimated Glomerular Filtration Rate 41 mL/min/1.73m Low >=60 mL/min/1.73m [facility] Glucose [Mass/Vol] 130 mg/dL High 74 - 99 mg/dL [facility] Potassium [Moles/Vol] 3.5 mmol/L Low 3.7 - 5.1 mmol /L [facility] Protein [Mass/Vol] 6.4 g/dL 6.3 - 8.0 g/dL Cl [facility] Sodium [Moles/Vol] 145 mmol/L High 136 - 144 mmol/L [facility] Urea nitrogen [Mass/Vol] 25 mg/dL High 9 - 24 mg/dL [facility] LD LACTATE DEHYDROon 022 LDH [Catalytic activity/Vol] 209 U/L 135 - 225 U/L [facility] HEMOGLOBIN AND HEMATOCRITon 05-23-2022 Hematocrit (Bld) [Volume fraction] 22.7 % Critically low 42.0-54.0 [facility] Comment on above: Performed By: #### T NS, PRBC #### [facility] [address] [address] [address] Benito To Hemoglobin (Bld) [Mass/Vol] 7.3 g/dL Critically low 14.0-18.0 [facility] Comment on above: Performed By: #### T NS, PRBC #### [facility] [address] [address] [address] Benito To TYPE AND SCREENon 05-23-2022 TYPE AND SCREEN Negative Normal [facility] Comment on above: Performed By: #### T NS, PRBC #### [facility] [address] [place] [address] Dr. Benito To PRBC LEUKOREDUCEDon 05-14-20 22 ABO and Rh group Nom (Bld) Cross Match Result Compatible Unit Blood Type A Neg Unit Number [id number] Status Information Transfused Product ID Red Blood Cells Product Code [id number] Cross Match Result Compatible Unit Blood Type A Neg Unit Number [id number] Status Information Transfused Product ID Red Blood Cells Product Code [id number] Normal [facility] Comment on above: Performed By: #### T NS, PRBC #### [facility] [address] [place] [address] Dr. Benito To PRBC LEUKOREDUCEDon 05-08-20 22 ABO and Rh group Nom (Bld) Cross Match Result Compatible Unit Blood Type A Pos Unit Number [id number] Status Information Transfused Product ID Red Blood Cells Product Code [id number] Cross Match Result Compatible Unit Blood Type A Pos Unit Number [id number] Status Information Transfused Product ID Red Blood Cells Product Code [id number] Normal [facility] Comment on above: Performed By: #### H H #### [facility] [address] [place] [address] Dr. Benito To HEMOGLOBIN AND HEMATOCRITon 05-07-2022 Hematocrit (Bld) [Volume fraction] 24.6 % Critically low 42.0-54.0 [facility] Comment on above: Performed By: #### T NS, PRBC #### [facility] [address] [place] [address] Dr. Benito To Hemoglobin (Bld) [Mass/Vol] 7.6 g/dL Critically low 14.0-18.0 [facility] Comment on above: Performed By: #### T NS, PRBC #### [facility] [address] [place] [address] Dr. Benito To TYPE AND SCREENon 05-07-2022 TYPE AND SCREEN Negative Normal [facility] Comment on above: Performed By: #### T NS, PRBC #### [facility] [address] [address] [address] Benito To FLOW CYTOMETRY BONE MARROW R EFLEXon 04-27-2022 Case Report Flow Cytometry Case: [id number] Authorizing Provider: Asher Hummel MD Collected: 04/25/2022 08:35 AM Ordering Location: Hematology/Oncology Received: 04/26/2022 08:07 AM Pathologist: Josie Robison MD Specimen: Bone Marrow [facility] Gross Description A. Bone Marrow RECEIVED 1 ML BONE MARROW IN HEPARIN [facility] Interpretation Specimen type: Bone marrow aspirate [...] developed and its performance characteristics determined by [facility] Pathology and Laboratory Medicine [place] [facility] It has not been cleared or approved by the FDA. -[facility] is regulated under CLIA as qualified to perform high-complexity testing. This test is used for clinical purposes. It should not be regarded as investigational or for research purposes. DSB/MS 04/26/2022 [facility] CBC W Auto Differential pane l (Bld)on 04-26-2022 Abs Baso 0.04 k/uL <0.11 k/uL [facility] Abs Ware 0.36 k/uL <0.87 k/uL [facility] Absolute nRBC <0.01 k/uL [facility] Anisocytosis Ql (Bld) Present [facility] Basophils/100 WBC (Bld) 1.8 % [facility] Dacrocytes LM Ql (Bld) Few [facility] Differential cell count method Nom (Bld) Manual [facility] Eosinophils (Bld) [#/Vol] 0.06 10*3/uL <0.46 k/uL [facility] Eosinophils/100 WBC (Bld) 2.7 % [facility] Erythrocyte distribution width (RBC) [Ratio] 25.2 % High 11.5 - 15.0 % [facility] Giant platelets LM Ql (Bld) Occasional [facility] Hematocrit (Bld) [Volume fraction] 28.2 % Low 39.0 - 51.0 % [facility] Hemoglobin (Bld) [Mass/Vol] 9.0 g/dL Low 13.0 - 17.0 g/dL [facility] Lymphocytes (Bld) [#/Vol] 0.82 10*3/uL Low 1.00 - 4.00 k/uL [facility] Lymphocytes/100 WBC (Bld) 34.8 % [facility] MCH (RBC) [Entitic mass] 32.0 pg 26.0 - 34.0 pg [facility] MCHC (RBC) [Mass/Vol] 31.9 g/dL 30.5 - 36.0 g/ dL [facility] MCV (RBC) [Entitic vol] 100.4 fL High 80.0 - 100.0 fL [facility] Monocytes/100 WBC (Bld) 15.2 % [facility] Neutrophils (Bld) [#/Vol] 1.07 10*3/uL Low 1.45 - 7.50 k/uL [facility] Neutrophils/100 WBC (Bld) 45.5 % [facility] Nucleated RBC/100 WBC (Bld) [Ratio] 0.0 /100 WBC [facility] Ovalocytes LM Ql (Bld) Few [facility] Platelet Estimate Decreased [facility] Platelet mean volume (Bld) [Entitic vol] [facility] Platelets (Bld) [#/Vol] 77 10*3/uL Low 150 - 400 k/uL [facility] Polychromasia LM Ql (Bld) Slight [facility] RBC (Bld) [#/Vol] 2.81 10*6/uL Low 4.20 - 6.00 m/uL [facility] RBC Fragments Few Abnormal None Seen [facility] Red Cell Morph Reviewed: see result s of individual morphologies [facility] Variant lymphocytes/100 WBC (Bld) 0.0 % [facility] WBC (Bld) [#/Vol] 2.35 10*3/uL Low 3.70 - 11.00 k/u L [facility] FLOW CYTOMETRY BONE MARROW H OLD (BMHOLD)on 04-26-2022 Flow Cytometry Order Status See Results in chart under F case ID [facility] Comprehensive metabolic 2000 panelon 04-25-2022 Albumin [Mass/Vol] 4.0 g/dL 3.9 - 4.9 g/dL [facility] ALP [Catalytic activity/Vol] 83 U/L 38 - 113 U/L [facility] ALT [Catalytic activity/Vol] 31 U/L 10 - 54 U/L [facility] Anion gap [Moles/Vol] 10 mmol/L 9 - 18 mmol/L [facility] AST [Catalytic activity/Vol] 17 U/L 14 - 40 U/L [facility] Bilirubin [Mass/Vol] 1.0 mg/dL 0.2 - 1.3 mg/dL [facility] Calcium [Mass/Vol] 8.9 mg/dL 8.5 - 10.2 mg/dL [facility] Chloride [Moles/Vol] 104 mmol/L 97 - 105 mmol/L [facility] CO2 [Moles/Vol] 29 mmol/L 22 - 30 mmol/L [facility] Creatinine [Mass/Vol] 1.79 mg/dL High 0.73 - 1.22 mg /dL [facility] Estimated Glomerular Filtration Rate 37 mL/min/1.73m Low >=60 mL/min/1.73m [facility] Glucose [Mass/Vol] 127 mg/dL High 74 - 99 mg/dL [facility] Potassium [Moles/Vol] 4.3 mmol/L 3.7 - 5.1 mmol /L [facility] Protein [Mass/Vol] 6.1 g/dL Low 6.3 - 8.0 g/dL [facility] Sodium [Moles/Vol] 143 mmol/L 136 - 144 mmol/L [facility] Urea nitrogen [Mass/Vol] 29 mg/dL High 9 - 24 mg/dL [facility] LD LACTATE DEHYDROon 022 LDH [Catalytic activity/Vol] 234 U/L High 135 - 225 U/L [facility] HEMOGLOBIN AND HEMATOCRITon 04-22-2022 Hematocrit (Bld) [Volume fraction] 23.1 % Critically low 42.0-54.0 [facility] Comment on above: Performed By: #### H GBHCT #### [facility] [address] [place] [address] Dr. Benito To Hemoglobin (Bld) [Mass/Vol] 7.2 g/dL Critically low 14.0-18.0 [facility] Comment on above: Performed By: #### H GBHCT #### [facility] [address] [place] [address] Dr. Benito To TYPE AND SCREENon 04-22-2022 TYPE AND SCREEN Negative Normal [facility] Comment on above: Performed By: #### H H #### [facility] [address] [place] [address] Dr. Benito To PRBC LEUKOREDUCEDon 04-07-20 ABO and Rh group Nom (Bld) Cross Match Result Compatible Unit Blood Type A Pos Unit Number [id number] Status Information Transfused Product ID Red Blood Cells Product Code [id number] Cross Match Result Compatible Unit Blood Type A Pos Unit Number [id number] Status Information Transfused Product ID Red Blood Cells Product Code [id number] Normal [facility] Comment on above: Performed By: #### H H #### [facility] [address] [place] [address] Dr. Benito To HEMOGLOBIN AND HEMATOCRITon 04-03-2022 Hematocrit (Bld) [Volume fraction] 21.8 % Critically low 42.0-54.0 [facility] Comment on above: Performed By: #### H GBHCT #### [facility] [address] [place] [address] Dr. Benito To Hemoglobin (Bld) [Mass/Vol] 6.9 g/dL Critically low 14.0-18.0 [facility] Comment on above: Performed By: #### H GBHCT #### [facility] [address] [place] [address] Dr. Benito To TYPE AND SCREENon 04-03-2022 TYPE AND SCREEN Negative Normal [facility] Comment on above: Performed By: #### H H #### [facility] [address] [place] [address] Dr. Benito To PRBC LEUKOREDUCEDon 03-12-20 ABO and Rh group Nom (Bld) Cross Match Result Compatible Unit Blood Type A Pos Unit Number [id number] Status Information Transfused Product ID Red Blood Cells Product Code [id number] Cross Match Result Compatible Unit Blood Type A Pos Unit Number [id number] Status Information Transfused Product ID Red Blood Cells Product Code [id number] Normal [facility] Comment on above: Performed By: #### T NS, PRBC #### [facility] [address] [place] [address] Dr. Benito To HEMOGRAM AND PLATELon 2021 Hematocrit (Bld) [Volume fraction] 23.0 % Critically low 42.0-54.0 [facility] Comment on above: Performed By: #### T NS, PRBC #### [facility] [address] [place] [address] Dr. Benito To Hemoglobin (Bld) [Mass/Vol] 7.1 g/dL Critically low 14.0-18.0 [facility] Comment on above: Performed By: #### T NS, PRBC #### [facility] [address] [place] [address] Dr. Benito To MCH (RBC) [Entitic mass] 33.6 pg Normal 25.9-34.0 [facility] Comment on above: Performed By: #### T NS, PRBC #### [facility] [address] [place] [address] Dr. Benito To MCHC (RBC) [Mass/Vol] 30.9 g/dL Normal 29.9-35.2 [facility] Comment on above: Performed By: #### T NS, PRBC #### [facility] [address] [place] [address] Dr. Benito To MCV (RBC) [Entitic vol] 109.0 fL Critically high 80.0-94.0 [facility] Comment on above: Performed By: #### T NS, PRBC #### [facility] [address] [place] [address] Dr. Benito To PLT 108 103/ul Critically low 150-450 [facility] Comment on above: Performed By: #### T NS, PRBC #### [facility] [address] [address] [address] Benito To RBC 2.11 106/ul Critically low 4.70-6.10 [facility] Comment on above: Performed By: #### T NS, PRBC #### [facility] [address] [place] [address] Dr. Benito To WBC 2.0 103/ul Critically low 4.0-11.0 [facility] Comment on above: Performed By: #### T NS, PRBC #### [facility] [address] [place] [address] Dr. Benito To TYPE AND SCREENon 03-11-2022 TYPE AND SCREEN Negative Normal [facility] Comment on above: Performed By: #### T NS, PRBC #### [facility] [address] [place] [address] Dr. Benito To PRBC LEUKOREDUCEDon 03-05-20 ABO and Rh group Nom (Bld) Cross Match Result Compatible Unit Blood Type A Pos Unit Number [id number] Status Information Transfused Product ID Red Blood Cells Product Code [id number] Cross Match Result Compatible Unit Blood Type A Pos Unit Number [id number] Status Information Transfused Product ID Red Blood Cells Product Code [id number] Normal [facility] Comment on above: Performed By: #### P RBC, TNS #### [facility] [address] [place] [address] Dr. Benito To HEMOGLOBIN AND HEMATOCRITon 02-28-2022 Hematocrit (Bld) [Volume fraction] 20.3 % Critically low 42.0-54.0 [facility] Comment on above: Performed By: #### H H #### [facility] [address] [address] [address] Benito To Hemoglobin (Bld) [Mass/Vol] 6.7 g/dL Critically low 14.0-18.0 [facility] Comment on above: Performed By: #### H H #### [facility] [id number] Benito To TYPE AND SCREENon 02-28-2022 TYPE AND SCREEN Negative Normal [facility] Comment on above: Performed By: #### P RBC, TNS #### [facility] [address] [address] [address] Benito To PRBC LEUKOREDUCEDon 02-18-20 ABO and Rh group Nom (Bld) Cross Match Result Compatible Unit Blood Type A Pos Unit Number [id number] Status Information Transfused Product ID Red Blood Cells Product Code [id number] Cross Match Result Compatible Unit Blood Type A Pos Unit Number [id number] Status Information Transfused Product ID Red Blood Cells Product Code [id number] Normal [facility] Comment on above: Performed By: #### P RBC, TNS #### [facility] [address] [place] [address] Dr. Benito To Comprehensive metabolic 2000 panelon 02-15-2022 Albumin [Mass/Vol] 3.9 g/dL 3.9 - 4.9 g/dL [facility] ALP [Catalytic activity/Vol] 64 U/L 38 - 113 U/L [facility] ALT [Catalytic activity/Vol] 26 U/L 10 - 54 U/L [facility] Anion gap [Moles/Vol] 13 mmol/L 9 - 18 mmol/L [facility] AST [Catalytic activity/Vol] 11 U/L Low 14 - 40 U/L [facility] Bilirubin [Mass/Vol] 0.4 mg/dL 0.2 - 1.3 mg/dL [facility] Calcium [Mass/Vol] 8.9 mg/dL 8.5 - 10.2 mg/dL [facility] Chloride [Moles/Vol] 102 mmol/L 97 - 105 mmol/L [facility] CO2 [Moles/Vol] 26 mmol/L 22 - 30 mmol/L [facility] Creatinine [Mass/Vol] 2.24 mg/dL High 0.73 - 1.22 mg /dL [facility] Estimated Glomerular Filtration Rate 28 mL/min/1.73m Low >=60 mL/min/1.73m [facility] Glucose [Mass/Vol] 206 mg/dL High 74 - 99 mg/dL [facility] Potassium [Moles/Vol] 3.7 mmol/L 3.7 - 5.1 mmol /L [facility] Protein [Mass/Vol] 6.0 g/dL Low 6.3 - 8.0 g/dL [facility] Sodium [Moles/Vol] 141 mmol/L 136 - 144 mmol/L [facility] Urea nitrogen [Mass/Vol] 52 mg/dL High 9 - 24 mg/dL [facility] LD LACTATE DEHYDROon 022 LDH [Catalytic activity/Vol] 250 U/L High 135 - 225 U/L [facility] HEMOGLOBIN AND HEMATOCRITon 02-04-2022 Hematocrit (Bld) [Volume fraction] 21.1 % Critically low 42.0-54.0 [facility] Comment on above: Performed By: #### T NS, PRBC #### [facility] [address] [place] [address] Dr. Benito To Hemoglobin (Bld) [Mass/Vol] 6.8 g/dL Critically low 14.0-18.0 [facility] Comment on above: Performed By: #### T NS, PRBC #### [facility] [address] [place] [address] Dr. Benito To TYPE AND SCREENon 02-04-2022 TYPE AND SCREEN Negative Normal [facility] Comment on above: Performed By: #### P RBC, TNS #### [facility] [address] [place] [address] Dr. Benito To PRBC LEUKOREDUCEDon 01-25-20 PRBC LEUKOREDUCED Cross Match Result Compatible Unit Blood Type A Neg Unit Number [id number] Status Information Transfused Product ID Red Blood Cells Product Code [id number] Normal [facility] Comment on above: Performed By: #### T NS, PRBC #### [facility] [address] [place] [address] Dr. Yilan To Comprehensive metabolic 2000 panelon 01-21-2022 Albumin [Mass/Vol] 3.9 g/dL 3.9 - 4.9 g/dL [facility] ALP [Catalytic activity/Vol] 62 U/L 38 - 113 U/L [facility] ALT [Catalytic activity/Vol] 40 U/L 10 - 54 U/L [facility] Anion gap [Moles/Vol] 10 mmol/L 9 - 18 mmol/L [facility] AST [Catalytic activity/Vol] 19 U/L 14 - 40 U/L [facility] Bilirubin [Mass/Vol] 0.8 mg/dL 0.2 - 1.3 mg/dL [facility] Calcium [Mass/Vol] 8.8 mg/dL 8.5 - 10.2 mg/dL [facility] Chloride [Moles/Vol] 101 mmol/L 97 - 105 mmol/L [facility] CO2 [Moles/Vol] 31 mmol/L High 22 - 30 mmol/L [facility] Creatinine [Mass/Vol] 1.95 mg/dL High 0.73 - 1.22 mg /dL [facility] Estimated Glomerular Filtration Rate 34 mL/min/1.73m Low >=60 mL/min/1.73m [facility] Glucose [Mass/Vol] 231 mg/dL High 74 - 99 mg/dL [facility] Potassium [Moles/Vol] 3.6 mmol/L Low 3.7 - 5.1 mmol /L [facility] Protein [Mass/Vol] 6.1 g/dL Low 6.3 - 8.0 g/dL [facility] Sodium [Moles/Vol] 142 mmol/L 136 - 144 mmol/L [facility] Urea nitrogen [Mass/Vol] 39 mg/dL High 9 - 24 mg/dL [facility] metabolic 2000 panelon 01-18-2022 Albumin [Mass/Vol] 4.1 g/dL 3.9 - 4.9 g/dL [facility] ALP [Catalytic activity/Vol] 62 U/L 38 - 113 U/L [facility] ALT [Catalytic activity/Vol] 24 U/L 10 - 54 U/L [facility] Anion gap [Moles/Vol] 10 mmol/L 9 - 18 mmol/L [facility] AST [Catalytic activity/Vol] 12 U/L Low 14 - 40 U/L [facility] Bilirubin [Mass/Vol] 0.6 mg/dL 0.2 - 1.3 mg/dL [facility] Calcium [Mass/Vol] 9.4 mg/dL 8.5 - 10.2 mg/dL [facility] Chloride [Moles/Vol] 103 mmol/L 97 - 105 mmol/L [facility] CO2 [Moles/Vol] 30 mmol/L 22 - 30 mmol/L [facility] Creatinine [Mass/Vol] 2.14 mg/dL High 0.73 - 1.22 mg /dL [facility] Estimated Glomerular Filtration Rate 30 mL/min/1.73m Low >=60 mL/min/1.73m [facility] Glucose [Mass/Vol] 182 mg/dL High 74 - 99 mg/dL [facility] Potassium [Moles/Vol] 3.8 mmol/L 3.7 - 5.1 mmol /L [facility] Protein [Mass/Vol] 6.4 g/dL 6.3 - 8.0 g/dL Cl [facility] Sodium [Moles/Vol] 143 mmol/L 136 - 144 mmol/L [facility] Urea nitrogen [Mass/Vol] 45 mg/dL High 9 - 24 mg/dL [facility] [facility] HEMOGLOBIN AND HEMATOCRITon 01-15-2022 Hematocrit (Bld) [Volume fraction] 24.9 % Critically low 42.0-54.0 [facility] Comment on above: Performed By: #### T NS, PRBC #### [facility] [address] [place] [address] Dr. Benito To Hemoglobin (Bld) [Mass/Vol] 7.7 g/dL Critically low 14.0-18.0 [facility] Comment on above: Performed By: #### T NS, PRBC #### [facility] [address] [address] [address] Benito To TYPE AND SCREENon 01-15-2022 TYPE AND SCREEN Negative Normal [facility] Comment on above: Performed By: #### T NS, PRBC #### [facility] [address] [address] [address] Benito To Cardiovascular Lab Reporton 11-29-2021 Cardiovascular Lab Report [facility] Patient Name: [facility] Sandip Swain MR #: [id number] Department of Physician: Curt Lee MD Division of Service Date: 11/21/2021 Cardiology Birthdate: 1940 Adult Cardiovascular Room #: [id number] [address] [place] [address] Cardiovascular Laboratory Report PROCEDURES PERFORMED: Right heart [...] Lee MD Date Trans: 11/29/2021 08:03 P/simon [id number] cc: Flash Pearl M.D. [address] [place] [address] [facility] [id number] Normal [facility] POC GLUCOSE LABon 11-25-2021 Glucose [Mass/Vol] 210 mg/dL High 70-100 [facility] Comment on above: Performed By: #### 8 5499 #### [facility] [address] [place] [address], [facility] Glucose [Mass/Vol] 203 mg/dL High 70-100 [facility] Comment on above: Performed By: #### 8 5499 #### [facility] [address] [place] [address], [facility] Glucose [Mass/Vol] 202 mg/dL High 70-100 [facility] Comment on above: Performed By: #### 8 5499 #### [facility] [address] BNP (B-TYPE NATRIURETIC PEPT IZAIAH)on 11-24-2021 Natriuretic peptide B (Bld) [Mass/Vol] 685 pg/mL High 0-100 [facility] Comment on above: Order Comment: No: D o not add to previous draw Result Comment: Give n the appropriate clinical setting a BNP result of >100 pg/mL indicates congestive heart failure. Performed By: #### 8 5123 ####[facility] [facility] [place] [address], [facility] CBC W/DIFFon 11-24-2021 ABS NEUTROPHILS 2.5 10*3/uL Normal 1.6-7.6 [facility] Comment on above: Order Comment: RIGHT BICEP Performed By: #### 3 0313 #### [facility] [address] [place] [address], [facility] ANISO Moderate Normal [facility] Comment on above: Order Comment: RIGHT BICEP Performed By: #### 3 0313 #### [facility] [address] [place] [address], [facility] Basophils (Bld) [#/Vol] 0.0 10*3/uL Normal 0.0-0.2 [facility] Comment on above: Order Comment: RIGHT BICEP Performed By: #### 3 0313 #### [facility] [address] [place] [id number], [facility] Basophils/100 WBC (Bld) 0.9 % Normal 0.0-1.0 [facility] Comment on above: Order Comment: RIGHT BICEP Performed By: #### 3 3 #### [facility] [address] [place] [address], [facility] Eosinophils (Bld) [#/Vol] 0.0 10*3/uL Normal 0.0-0.5 [facility] Comment on above: Order Comment: RIGHT BICEP Performed By: #### 3 0313 #### [facility] [address] [place] [id number], [facility] Eosinophils/100 WBC (Bld) 0.0 % Normal 0.0-6.0 [facility] Comment on above: Order Comment: RIGHT BICEP Performed By: #### 3 3 #### [facility] [address] Erythrocyte distribution width (RBC) [Ratio] 22.0 % High 11.5-15.0 [facility] Comment on above: Order Comment: RIGHT BICEP Performed By: #### 3 0313 #### [facility] [address] [place] [address], [facility] GIANT PLATELETS Present Normal [facility] Comment on above: Order Comment: RIGHT BICEP Performed By: #### 3 0313 #### [facility] [address] [place] [id number], [facility] Hematocrit (Bld) [Volume fraction] 27.9 % Low 39.0-50.0 [facility] Comment on above: Order Comment: RIGHT BICEP Performed By: #### 3 3 #### [facility] [address] [place] [id number], [facility] Hemoglobin (Bld) [Mass/Vol] 8.8 g/dL Low 13.0-17.0 [facility] Comment on above: Order Comment: RIGHT BICEP Performed By: #### 3 0313 #### [facility] [address] [place] [address], [facility] IMM PLATELET FRAC 14.2 % High 0.8-6.3 [facility] Comment on above: Order Comment: RIGHT BICEP Performed By: #### 3 0313 #### [facility] [address] [place] [id number], [facility] Lymphocytes (Bld) [#/Vol] 0.5 10*3/uL Low 1.2-4.0 [facility] Comment on above: Order Comment: RIGHT BICEP Performed By: #### 3 0313 #### [facility] [address] [place] [id number], [facility] Lymphocytes/100 WBC (Bld) 14.2 % Low 20.0-45.0 [facility] Comment on above: Order Comment: RIGHT BICEP Performed By: #### 3 0313 #### [facility] [address] [place] [address], [facility] MACRO Slight Normal [facility] Comment on above: Order Comment: RIGHT BICEP Performed By: #### 3 0313 #### [facility] [address] [place] [address], [facility] MCH (RBC) [Entitic mass] 34.6 pg High 27.0-33.0 [facility] Comment on above: Order Comment: RIGHT BICEP Performed By: #### 3 0313 #### [facility] [address] [place] [id number], [facility] MCHC (RBC) [Mass/Vol] 31.5 g/dL Low 32.0-35.0 [facility] Comment on above: Order Comment: RIGHT BICEP Performed By: #### 3 0313 #### [facility] [address] [place] [address], [facility] MCV (RBC) [Entitic vol] 109.8 fL High 82.0-98.0 [facility] Comment on above: Order Comment: RIGHT BICEP Performed By: #### 3 0313 #### [facility] [address] [place] [address], [facility] Monocytes (Bld) [#/Vol] 0.4 10*3/uL Normal 0.1-1.0 [facility] Comment on above: Order Comment: RIGHT BICEP Performed By: #### 3 0313 #### [facility] [address] [place] [address], [place] MONOS 11.3 % Normal 5.0-12.0 [facility] Comment on above: Order Comment: RIGHT BICEP Performed By: #### 3 0313 #### [facility] [address] [place] [address], [facility] MYELOS 6.6 % High 0.0-0.0 [facility] Comment on above: Order Comment: RIGHT BICEP Performed By: #### 3 0313 #### [facility] [address] [place] [address], [facility] Neutrophils/100 WBC (Bld) 67.0 % Normal 40.0-72.0 [facility] Comment on above: Order Comment: RIGHT BICEP Performed By: #### 3 0313 #### [facility] [address] [place] [address], [facility] Nucleated RBC/100 WBC (Bld) [Ratio] 1 % High 0-0 [facility] Comment on above: Order Comment: RIGHT BICEP Performed By: #### 3 0313 #### [facility] [address] [place] [address], [place] PLAT CNT 186 10*3/uL Normal 150-400 [facility] Comment on above: Order Comment: RIGHT BICEP Performed By: #### 3 0313 #### [facility] [address] [place] [address], [place] POIK Slight Normal [facility] Comment on above: Order Comment: RIGHT BICEP Performed By: #### 3 0313 #### [facility] [address] [place] [address], [facility] RBC (Bld) [#/Vol] 2.54 10*6/uL Low 4.20-5.70 [facility] Comment on above: Order Comment: RIGHT BICEP Performed By: #### 3 0313 #### [facility] [address] [place] [address], [facility] WBC (Bld) [#/Vol] 3.77 10*3/uL Low 4.00-10.60 [facility] Comment on above: Order Comment: RIGHT BICEP Performed By: #### 3 0313 #### [facility] [address] [place] [address], [facility] COMP METABOLIC PANELon 11-24 Albumin [Mass/Vol] 3.6 g/dL Normal 3.5-5.7 [facility] Comment on above: Order Comment: Evalu ate for Cardiomegaly Performed By: #### 0 0121, 34182, 68922 ####[facility] [place] [address], [facility] ALKALINE PHOSPH 44 IU/L Normal 34-104 [facility] Comment on above: Order Comment: Evalu ate for Cardiomegaly Performed By: #### 0 0121, 18643, 00002 ####[facility] [place] [address], [facility] ALT [Catalytic activity/Vol] 36 U/L Normal 7-52 [facility] Comment on above: Order Comment: Evalu ate for Cardiomegaly Performed By: #### 0 0121, 53413, 37363 ####[facility] [place] [address], [place] AST [Catalytic activity/Vol] 23 U/L Normal 13-39 [facility] Comment on above: Order Comment: Evalu ate for Cardiomegaly Performed By: #### 0 0121, 43075, 10065 ####[facility] [place] [address], [facility] Bilirubin [Mass/Vol] 0.8 mg/dL Normal 0.3-1.0 [facility] Comment on above: Order Comment: Evalu ate for Cardiomegaly Performed By: #### 0 0121, 30048, 77431 ####[facility] [place] [address], [facility] Calcium [Mass/Vol] 8.8 mg/dL Normal 8.6-10.3 [facility] Comment on above: Order Comment: Evalu ate for Cardiomegaly Performed By: #### 0 0121, 51617, 06090 ####[facility] [place] [address], [place] Chloride [Moles/Vol] 103 mmol/L Normal 98-107 [facility] Comment on above: Order Comment: Evalu ate for Cardiomegaly Performed By: #### 0 0121, 24115, 63590 ####[facility] [place] [address], [facility] CO2 [Moles/Vol] 30 mmol/L Normal 21-31 [facility] Comment on above: Order Comment: Evalu ate for Cardiomegaly Performed By: #### 0 0121, 31614, 71788 ####[facility] [place] [address], [place] Creatinine [Mass/Vol] 1.54 mg/dL High 0.70-1.30 [facility] Comment on above: Order Comment: Evalu ate for Cardiomegaly Performed By: #### 0 0121, 81441, 51639 ####[facility] [place] [address], [facility] eGFR- 53 ml/min/1.73sq m Abnormal >60 [facility] Comment on above: Order Comment: Evalu ate for Cardiomegaly Result Comment: Calc ulation may not be valid for patients over 70 years Performed By: #### 0 0121, 15583, 48686 ####[facility] [place] [address], [facility] eGFR- non- 43 ml/min/1.73sq m Abnormal >60 [facility] Comment on above: Order Comment: Evalu ate for Cardiomegaly Result Comment: Calc ulation may not be valid for patients over 70 years Performed By: #### 0 0121, 72123, 71003 ####[facility] [place] [address], [facility] Glucose [Mass/Vol] 173 mg/dL High 70-100 [facility] Comment on above: Order Comment: Evalu ate for Cardiomegaly Performed By: #### 0 0121, 24619, 53796 ####[facility] [place] [address], [facility] Potassium [Moles/Vol] 3.5 mmol/L Normal 3.5-5.1 [facility] Comment on above: Order Comment: Evalu ate for Cardiomegaly Performed By: #### 0 0121, 70631, 76582 ####[facility] [facility] [place] [address], [facility] Protein [Mass/Vol] 6.2 g/dL Normal 6.0-8.3 [facility] Comment on above: Order Comment: Evalu ate for Cardiomegaly Performed By: #### 0 0121, 33585, 44218 ####[facility] [place] [address], [place] Sodium [Moles/Vol] 143 mmol/L Normal 136-145 [facility] Comment on above: Order Comment: Evalu ate for Cardiomegaly Performed By: #### 0 0121, 29938, 32013 ####[facility] Urea nitrogen [Mass/Vol] 41 mg/dL High 7-25 [facility] Comment on above: Order Comment: Evalu ate for Cardiomegaly Performed By: #### 0 0121, 52191, 97958 ####[facility] [place] [address], [facility] LIPID PROFILEon 11-24-2021 Cholesterol [Mass/Vol] 69 mg/dL Low 120-200 [facility] Comment on above: Result Comment: CHOL ESTEROL REFERENCE RANGE: 20 YEARS AND OLDER CARDIOVASCULAR RISK Less than 200 mg/dl Low Risk 200 to 239 mg/dl Borderline Risk 240 mg/dl and greater High Risk Performed By: #### 0 0121, 84944, 34601 ####[facility] [place] [address], [facility] Cholesterol in HDL [Mass/Vol] 21 mg/dL Low 23-92 [facility] Comment on above: Result Comment: Slig ht variation in normal range could be due to gender and/or age. HDL CHOLESTEROL REFERENCE RANGE: 20 years and older Cardiovascular Risk > or =60 mg/dL Desirable 40 TO 59 mg/dL Low Risk <40 mg/dL High Risk Performed By: #### 0 0121, 95406, 11384 ####[facility] [place] [address], [facility] Cholesterol in LDL [Mass/Vol] 21 mg/dL Normal 0-130 [facility] Comment on above: Result Comment: LDL IS A CALCULATION LDL IS ONLY VALID IF THE TRIG IS LESS THAN 400. Performed By: #### 0 0121, 01134, 39919 ####[facility] [place] [address], [facility] Cholesterol.total/Cho lesterol in HDL [Mass ratio] 3.3 {ratio} Normal .0-4.5 [facility] Comment on above: Performed By: #### 0 0121, 68990, 60622 ####[facility] [facility] [place] [address], [facility] NON-HDL CHOLESTEROL 48 mg/dL Normal [facility] Comment on above: Performed By: #### 0 0121, 67445, 82229 ####[facility] [facility] [place] [address], [facility] Triglyceride [Mass/Vol] 134 mg/dL Normal 40-149 [facility] Comment on above: Result Comment: TRIG LYCERIDE REFERENCE RANGE: 20 YEARS AND OLDER CARDIOVASCULAR RISK LESS THAN 150 mg/dl LOW RISK 150 TO 199 mg/dl BORDERLINE RISK 200 mg/dl AND GREATER HIGH RISK Performed By: #### 0 0121, 52181, 10345 ####[facility] [facility] [place] [place] [address], [facility] VLDL CHOL 27 mg/dL Normal 0-40 [facility] Comment on above: Performed By: #### 0 0121, 21056, 80837 ####[facility] [facility] [place] [place] [address], [facility] MAGNESIUM BLOODon 11-24-2021 Magnesium [Mass/Vol] 2.2 mg/dL Normal 1.9-2.7 [facility] Comment on above: Order Comment: Evalu ate for Cardiomegaly Performed By: #### 0 0121, 99182, 86229 ####[facility] [facility] [place] [address], [facility] POC GLUCOSE LABon 11-24-2021 Glucose [Mass/Vol] 194 mg/dL High 70-100 [facility] Comment on above: Performed By: #### 3 0313 #### [facility] [address] [place] [address], [place] Glucose [Mass/Vol] 222 mg/dL High 70-100 [facility] Comment on above: Performed By: #### 3 8364 #### [facility] [address] [place] [address], [place] Glucose [Mass/Vol] 193 mg/dL High 70-100 [facility] Comment on above: Performed By: #### 8 5499 #### [facility] [address] [place] [address], [place] Glucose [Mass/Vol] 196 mg/dL High 70-100 [facility] Comment on above: Performed By: #### 3 2044 #### [facility] [address] [place] [address], [place] COMP METABOLIC PANELon 11-23 Albumin [Mass/Vol] 3.3 g/dL Low 3.5-5.7 [facility] Comment on above: Order Comment: No: D o not add to previous draw Performed By: #### 3 0477 #### [facility] [address] [place] [address], [place] ALKALINE PHOSPH 40 IU/L Normal 34-104 [facility] Comment on above: Order Comment: No: D o not add to previous draw Performed By: #### 3 0477 #### [facility] [address] [place] [address], [place] ALT [Catalytic activity/Vol] 34 U/L Normal 7-52 [facility] Comment on above: Order Comment: No: D o not add to previous draw Performed By: #### 3 0477 #### [facility] [address] [place] [address], [place] AST [Catalytic activity/Vol] 21 U/L Normal 13-39 [facility] Comment on above: Order Comment: No: D o not add to previous draw Performed By: #### 3 0477 #### [facility] [address] [place] [address], [place] Bilirubin [Mass/Vol] 0.8 mg/dL Normal 0.3-1.0 [facility] Comment on above: Order Comment: No: D o not add to previous draw Performed By: #### 3 0477 #### [facility] [address] [place] [id number], [facility] Calcium [Mass/Vol] 8.6 mg/dL Normal 8.6-10.3 [facility] Comment on above: Order Comment: No: D o not add to previous draw Performed By: #### 3 0477 #### [facility] [address] [place] [address], [place] Chloride [Moles/Vol] 103 mmol/L Normal 98-107 [facility] Comment on above: Order Comment: No: D o not add to previous draw Performed By: #### 3 0477 #### [facility] [address] [place] [address], [place] CO2 [Moles/Vol] 30 mmol/L Normal 21-31 [facility] Comment on above: Order Comment: No: D o not add to previous draw Performed By: #### 3 0477 #### [facility] [address] [place] [address], [place] Creatinine [Mass/Vol] 1.88 mg/dL High 0.70-1.30 [facility] Comment on above: Order Comment: No: D o not add to previous draw Performed By: #### 3 0477 #### [facility] [address] [place] [address], [facility] eGFR- 42 ml/min/1.73sq m Abnormal >60 [facility] Comment on above: Order Comment: No: D o not add to previous draw Result Comment: Calc ulation may not be valid for patients over 70 years Performed By: #### 3 0477 #### [facility] [address] [place] [address], [place] eGFR- non- 35 ml/min/1.73sq m Abnormal >60 [facility] Comment on above: Order Comment: No: D o not add to previous draw Result Comment: Calc ulation may not be valid for patients over 70 years Performed By: #### 3 0477 #### [facility] [address] [place] [address], [place] Glucose [Mass/Vol] 140 mg/dL High 70-100 [facility] Comment on above: Order Comment: No: D o not add to previous draw Performed By: #### 3 0477 #### [facility] [address] [place] [address], [place] Potassium [Moles/Vol] 3.5 mmol/L Normal 3.5-5.1 [facility] Comment on above: Order Comment: No: D o not add to previous draw Performed By: #### 3 0477 #### [facility] [address] [place] [address], [place] Protein [Mass/Vol] 5.9 g/dL Low 6.0-8.3 [facility] Comment on above: Order Comment: No: D o not add to previous draw Performed By: #### 3 0477 #### [facility] [address] [place] [address], [place] Sodium [Moles/Vol] 143 mmol/L Normal 136-145 [facility] Comment on above: Order Comment: No: D o not add to previous draw Performed By: #### 3 0477 #### [facility] [address] [place] [address], [place] Urea nitrogen [Mass/Vol] 47 mg/dL High 7-25 [facility] Comment on above: Order Comment: No: D o not add to previous draw Performed By: #### 3 0477 #### [facility] [address] [place] [address], [place] HEMOGLOBINon 11-23-2021 Hemoglobin (Bld) [Mass/Vol] 8.7 g/dL Low 13.0-17.0 [facility] Comment on above: Order Comment: meredith holden start lab draw at 5pm followed by q12 at 5am tomorrow No: Do not add to previous draw Performed By: #### 9 2089 #### [facility] [place] [address], [facility] Hemoglobin (Bld) [Mass/Vol] 8.3 g/dL Low 13.0-17.0 [facility] Comment on above: Order Comment: meredith holden start lab draw at 5pm followed by q12 at 5am tomorrow Unknown Performed By: #### 9 2089 #### [facility] [address] [place] [place] [address], [facility] MAGNESIUM BLOODon 11-23-2021 Magnesium [Mass/Vol] 2.2 mg/dL Normal 1.9-2.7 [facility] Comment on above: Order Comment: No: D o not add to previous draw Performed By: #### 3 0477 #### [address] [address], [facility] POC GLUCOSE LABon 11-23-2021 Glucose [Mass/Vol] 159 mg/dL High 70-100 [facility] Comment on above: Performed By: #### 3 0313 #### [facility] [address] [place] [place] [address], [facility] Glucose [Mass/Vol] 226 mg/dL High 70-100 [facility] Comment on above: Performed By: #### 8 5499 #### [address] [address], [facility] PORTABLE CHEST 1 VIEWon 10-27 PORTABLE CHEST 1 VIEW [facility] Department of Radiology [address] [place] [id number] Patient Name: SANDIP BROUSSARD : 1940 Sex: M Age: Race: White Pt. Location: [id number] Patient Status: I Ordered Date: 11/23/2021 1:10:00 [...] cardiomegaly. Electronically signed: Jasper Plunkett. Transcribed by: [email or web address], User Resident: Electronically Signed by: JASPER PLUNKETT @ 11/23/2021 02:34 PM Normal [facility] Comment on above: Order Comment: Cardi omegaly COMP METABOLIC PANELon 11-22 Albumin [Mass/Vol] 3.3 g/dL Low 3.5-5.7 [facility] Comment on above: Order Comment: No: D o not add to previous draw Performed By: #### 1 0070, 62701 ####[facility] [facility].[address] ALKALINE PHOSPH 37 IU/L Normal 34-104 [facility] Comment on above: Order Comment: No: D o not add to previous draw Performed By: #### 1 0070, 43512 ####[facility] [place] [address], [place] ALT [Catalytic activity/Vol] 32 U/L Normal 7-52 [facility] Comment on above: Order Comment: No: D o not add to previous draw Performed By: #### 1 0, 61040 ####[facility] [place] [address], [place] AST [Catalytic activity/Vol] 17 U/L Normal 13-39 [facility] Comment on above: Order Comment: No: D o not add to previous draw Performed By: #### 1 69, 99999 ####[facility] [place] [address], [place] Bilirubin [Mass/Vol] 0.9 mg/dL Normal 0.3-1.0 [facility] Comment on above: Order Comment: No: D o not add to previous draw Performed By: #### 1 69, 53445 ####[facility] [place] [address], [place] Calcium [Mass/Vol] 8.3 mg/dL Low 8.6-10.3 [facility] Comment on above: Order Comment: No: D o not add to previous draw Performed By: #### 1 69, 91004 ####[facility] [place] [address], [place] Chloride [Moles/Vol] 103 mmol/L Normal 98-107 [facility] Comment on above: Order Comment: No: D o not add to previous draw Performed By: #### 1 69, 87597 ####[facility] [place] [address], [place] CO2 [Moles/Vol] 28 mmol/L Normal 21-31 [facility] Comment on above: Order Comment: No: D o not add to previous draw Performed By: #### 1 69, 88311 ####[facility] [place] [address], [place] Creatinine [Mass/Vol] 1.92 mg/dL High 0.70-1.30 [facility] Comment on above: Order Comment: No: D o not add to previous draw Performed By: #### 1 0, [id number] ####[facility] [place] [address], [facility] eGFR- 41 ml/min/1.73sq m Abnormal >60 [facility] Comment on above: Order Comment: No: D o not add to previous draw Result Comment: Calc ulation may not be valid for patients over 70 years Performed By: #### 1 0, 43152 ####[facility] [place] [address], [facility] eGFR- non- 34 ml/min/1.73sq m Abnormal >60 [facility] Comment on above: Order Comment: No: D o not add to previous draw Result Comment: Calc ulation may not be valid for patients over 70 years Performed By: #### 1 0, 45562 ####[facility] [place] [address], [place] Glucose [Mass/Vol] 128 mg/dL High 70-100 [facility] Comment on above: Order Comment: No: D o not add to previous draw Performed By: #### 1 69, 19615 ####[facility] [place] [address], [facility] Potassium [Moles/Vol] 3.5 mmol/L Normal 3.5-5.1 [facility] Comment on above: Order Comment: No: D o not add to previous draw Performed By: #### 1 0, 79425 ####[facility] [place] [address], [place] Protein [Mass/Vol] 5.7 g/dL Low 6.0-8.3 [facility] Comment on above: Order Comment: No: D o not add to previous draw Performed By: #### 1 0, 14861 ####[facility] [place] [address], [facility] Sodium [Moles/Vol] 142 mmol/L Normal 136-145 [facility] Comment on above: Order Comment: No: D o not add to previous draw Performed By: #### 1 0, 82790 ####[facility] [place] [address], [facility] Urea nitrogen [Mass/Vol] 51 mg/dL High 7-25 [facility] Comment on above: Order Comment: No: D o not add to previous draw Performed By: #### 1 0, 15246 ####[facility] [place] [address], [facility] HEMOGLOBINon 11-22-2021 Hemoglobin (Bld) [Mass/Vol] 9.1 g/dL Low 13.0-17.0 [facility] Comment on above: Order Comment: pleas e start lab draw at 5pm followed by q12 at 5am tomorrow No: Do not add to previous draw Performed By: #### 9 2089 #### [facility] [address] [place] [address], [place] MAGNESIUM BLOODon 11-22-2021 Magnesium [Mass/Vol] 2.1 mg/dL Normal 1.9-2.7 [facility] Comment on above: Order Comment: No: D o not add to previous draw Performed By: #### 1 0, 08552 ####[facility] [place] [address], [place] POC GLUCOSE LABon 11-22-2021 Glucose [Mass/Vol] 155 mg/dL High 70-100 [facility] Comment on above: Performed By: #### 8 5499 #### [facility] [address] [place] [address], [place] Glucose [Mass/Vol] 227 mg/dL High 70-100 [facility] Comment on above: Performed By: #### 8 6579 #### [facility] [address] [place] [address], [facility] Glucose [Mass/Vol] 141 mg/dL High 70-100 [facility] Comment on above: Performed By: #### 3 2044 #### [facility] [address] [place] [address], [facility] UFH HEPARIN ASSAYon 11-23-19 UNFRACTIONATED HEPARIN 0.20 IU/mL Low 0.30-0.70 [facility] Comment on above: Result Comment: Ovid roxaban and Apixaban will interfere with the anti Xa assay used to monitor UFH and LMWH. Performed By: #### 5 0103 #### [facility] [address] [facility] [place] [address], [facility] CBC W/DIFFon 11-21-2021 ABS NEUTROPHILS 4.3 10*3/uL Normal 1.6-7.6 [facility] Comment on above: Order Comment: RIGHT BICEP Performed By: #### 3 0313 #### [facility] [address] [place] [address], [facility] ANISO Moderate Normal [facility] Comment on above: Order Comment: RIGHT BICEP Performed By: #### 3 0313 #### [facility] [address] [place] [address], [facility] Basophils (Bld) [#/Vol] 0.0 10*3/uL Normal 0.0-0.2 [facility] Comment on above: Order Comment: RIGHT BICEP Performed By: #### 3 0313 #### [facility] [address] [facility] [place] [address], [facility] Basophils/100 WBC (Bld) 0.0 % Normal 0.0-1.0 [facility] Comment on above: Order Comment: RIGHT BICEP Performed By: #### 3 0313 #### [facility] [address] [place] [address], [place] Eosinophils (Bld) [#/Vol] 0.0 10*3/uL Normal 0.0-0.5 [facility] Comment on above: Order Comment: RIGHT BICEP Performed By: #### 3 0313 #### [facility] [address] [place] [address], [facility] Eosinophils/100 WBC (Bld) 0.0 % Normal 0.0-6.0 [facility] Comment on above: Order Comment: RIGHT BICEP Performed By: #### 3 0313 #### [facility] [address] Erythrocyte distribution width (RBC) [Ratio] 25.5 % High 11.5-15.0 [facility] Comment on above: Order Comment: RIGHT BICEP Performed By: #### 3 0313 #### [facility] [address] [place] [address], [facility] GIANT PLATELETS Present Normal [facility] Comment on above: Order Comment: RIGHT BICEP Performed By: #### 3 0313 #### [facility] [address] Hematocrit (Bld) [Volume fraction] 25.6 % Low 39.0-50.0 [facility] Comment on above: Order Comment: RIGHT BICEP Performed By: #### 3 0313 #### [facility] [address] [place] [address], [facility] Hemoglobin (Bld) [Mass/Vol] 8.7 g/dL Low 13.0-17.0 [facility] Comment on above: Order Comment: RIGHT BICEP Performed By: #### 3 0313 #### [facility] [address] [place] [address], [facility] IMM PLATELET FRAC 18.9 % High 0.8-6.3 [facility] Comment on above: Order Comment: RIGHT BICEP Performed By: #### 3 0313 #### [facility] [address] [place] [address], [facility] Lymphocytes (Bld) [#/Vol] 0.4 10*3/uL Low 1.2-4.0 [facility] Comment on above: Order Comment: RIGHT BICEP Performed By: #### 3 0313 #### [facility] [address] [facility] [place] [address], [facility] Lymphocytes/100 WBC (Bld) 7.7 % Low 20.0-45.0 [facility] Comment on above: Order Comment: RIGHT BICEP Performed By: #### 3 0313 #### [facility] [address] [facility] [place] [address], [facility] MACRO Slight Normal [facility] Comment on above: Order Comment: RIGHT BICEP Performed By: #### 3 3 #### [facility] [address] [facility] [place] [address], [facility] MCH (RBC) [Entitic mass] 35.2 pg High 27.0-33.0 [facility] Comment on above: Order Comment: RIGHT BICEP Performed By: #### 3 0313 #### [facility] [address] [facility] [place] [address], [facility] MCHC (RBC) [Mass/Vol] 34.0 g/dL Normal 32.0-35.0 [facility] Comment on above: Order Comment: RIGHT BICEP Performed By: #### 3 0313 #### [facility] [address] [facility] [place] [address], [facility] MCV (RBC) [Entitic vol] 103.6 fL High 82.0-98.0 [facility] Comment on above: Order Comment: RIGHT BICEP Performed By: #### 3 0313 #### [facility] [address] [place] [address], [facility] METAMYELO 1.9 % High 0.0-0.0 [facility] Comment on above: Order Comment: RIGHT BICEP Performed By: #### 3 0313 #### [facility] [address] [place] [address], [facility] Monocytes (Bld) [#/Vol] 0.7 10*3/uL Normal 0.1-1.0 [facility] Comment on above: Order Comment: RIGHT BICEP Performed By: #### 3 3 #### [facility] [address] [place] [address], [facility] MONOS 12.5 % High 5.0-12.0 [facility] Comment on above: Order Comment: RIGHT BICEP Performed By: #### 3 3 #### [facility] [address] [place] [address], [facility] MYELOS 1.0 % High 0.0-0.0 [facility] Comment on above: Order Comment: RIGHT BICEP Performed By: #### 3 3 #### [facility] [address] [place] [address], [facility] Neutrophils/100 WBC (Bld) 76.9 % High 40.0-72.0 [facility] Comment on above: Order Comment: RIGHT BICEP Performed By: #### 3 3 #### [facility] [address] [place] [id number], [facility] Nucleated RBC/100 WBC (Bld) [Ratio] 1 % High 0-0 [facility] Comment on above: Order Comment: RIGHT BICEP Performed By: #### 3 3 #### [facility] [address] [place] [address], [place] PLAT CNT 122 10*3/uL Low 150-400 [facility] Comment on above: Order Comment: RIGHT BICEP Performed By: #### 3 3 #### [facility] [address] [place] [address], [place] POIK Slight Normal [facility] Comment on above: Order Comment: RIGHT BICEP Performed By: #### 3 3 #### [facility] [address] [place] [address], [place] RBC (Bld) [#/Vol] 2.47 10*6/uL Low 4.20-5.70 [facility] Comment on above: Order Comment: RIGHT BICEP Performed By: #### 3 0313 #### [facility] [address] [place] [address], [place] WBC (Bld) [#/Vol] 5.62 10*3/uL Normal 4.00-10.60 [facility] Comment on above: Order Comment: RIGHT BICEP Performed By: #### 3 0313 #### [facility] [address] [place] [address], [place] COMP METABOLIC PANELon 11-21 Albumin [Mass/Vol] 3.3 g/dL Low 3.5-5.7 [facility] Comment on above: Order Comment: No: D o not add to previous draw Performed By: #### 8 6001 #### [facility] [address] [place] [address], [place] ALKALINE PHOSPH 36 IU/L Normal 34-104 [facility] Comment on above: Order Comment: No: D o not add to previous draw Performed By: #### 8 6001 #### [facility] [address] [place] [address], [place] ALT [Catalytic activity/Vol] 46 U/L Normal 7-52 [facility] Comment on above: Order Comment: No: D o not add to previous draw Performed By: #### 8 6001 #### [facility] [address] [place] [address], [place] AST [Catalytic activity/Vol] 24 U/L Normal 13-39 [facility] Comment on above: Order Comment: No: D o not add to previous draw Performed By: #### 8 6001 #### [facility] [address] [place] [address], [place] Bilirubin [Mass/Vol] 1.0 mg/dL Normal 0.3-1.0 [facility] Comment on above: Order Comment: No: D o not add to previous draw Performed By: #### 8 6001 #### [facility] [address] [place] [address], [place] Calcium [Mass/Vol] 8.4 mg/dL Low 8.6-10.3 [facility] Comment on above: Order Comment: No: D o not add to previous draw Performed By: #### 8 6001 #### [facility] [address] [place] [address], [place] Chloride [Moles/Vol] 103 mmol/L Normal 98-107 [facility] Comment on above: Order Comment: No: D o not add to previous draw Performed By: #### 8 6001 #### [facility] [address] [place] [address], [place] CO2 [Moles/Vol] 31 mmol/L Normal 21-31 [facility] Comment on above: Order Comment: No: D o not add to previous draw Performed By: #### 8 6001 #### [facility] [address] [place] [address], [facility] Creatinine [Mass/Vol] 2.18 mg/dL High 0.70-1.30 [facility] Comment on above: Order Comment: No: D o not add to previous draw Performed By: #### 8 6001 #### [facility] [address] [place] [address], [place] eGFR- 35 ml/min/1.73sq m Abnormal >60 [facility] Comment on above: Order Comment: No: D o not add to previous draw Result Comment: Calc ulation may not be valid for patients over 70 years Performed By: #### 8 6001 #### [facility] [address] [place] [address], [facility] eGFR- non- 29 ml/min/1.73sq m Abnormal >60 [facility] Comment on above: Order Comment: No: D o not add to previous draw Result Comment: Calc ulation may not be valid for patients over 70 years Performed By: #### 8 6001 #### [facility] [address] [place] [address], [place] Glucose [Mass/Vol] 140 mg/dL High 70-100 [facility] Comment on above: Order Comment: No: D o not add to previous draw Performed By: #### 8 6001 #### [facility] [address] [place] [address], [place] Potassium [Moles/Vol] 3.3 mmol/L Low 3.5-5.1 [facility] Comment on above: Order Comment: No: D o not add to previous draw Performed By: #### 8 6001 #### [facility] [address] [place] [address], [place] Protein [Mass/Vol] 5.9 g/dL Low 6.0-8.3 [facility] Comment on above: Order Comment: No: D o not add to previous draw Performed By: #### 8 6001 #### [facility] [address] [place] [address], [place] Sodium [Moles/Vol] 143 mmol/L Normal 136-145 [facility] Comment on above: Order Comment: No: D o not add to previous draw Performed By: #### 8 6001 #### [facility] [address] [place] [address], [place] Urea nitrogen [Mass/Vol] 58 mg/dL High 7-25 [facility] Comment on above: Order Comment: No: D o not add to previous draw Performed By: #### 8 6001 #### [facility] [address] [place] [address], [place] FOLATE SERUMon 11-21-2021 SERUM FOLATE 4.85 ng/mL Low 6.60-1000.00 [facility] Comment on above: Result Comment: Norm al range reflects World Health Organization International Standard Performed By: #### 1 0070, 18080, 25307, 93676 ####[facility] [place] [address], [facility] HEMATOCRITon 11-21-2021 Hematocrit (Bld) [Volume fraction] 25.6 % Low 39.0-50.0 [facility] Comment on above: Order Comment: pleas e start lab draw at 5pm followed by q12 at 5am tomorrow No: Do not add to previous draw Performed By: #### 9 2088 #### [facility] [address] [facility] [place] [address], [facility] HEMOGLOBINon 11-21-2021 Hemoglobin (Bld) [Mass/Vol] 8.8 g/dL Low 13.0-17.0 [facility] Comment on above: Order Comment: pleas e start lab draw at 5pm followed by q12 at 5am tomorrow No: Do not add to previous draw Performed By: #### 9 2088 #### [facility] [address] [facility] [place] [address], [facility] Hemoglobin (Bld) [Mass/Vol] 8.5 g/dL Low 13.0-17.0 [facility] Comment on above: Order Comment: pleas e start lab draw at 5pm followed by q12 at 5am tomorrow No: Do not add to previous draw Performed By: #### 9 2088 #### [facility] [address] [place] [address], [facility] MAGNESIUM BLOODon 11-21-2021 Magnesium [Mass/Vol] 2.2 mg/dL Normal 1.9-2.7 [facility] Comment on above: Order Comment: No: D o not add to previous draw Performed By: #### 8 6001 #### [facility] [address] [place] [address], [facility] POC GLUCOSE LABon 11-21-2021 Glucose [Mass/Vol] 135 mg/dL High 70-100 [facility] Comment on above: Performed By: #### 8 5499 #### [facility] [address] [place] [address], [facility] Glucose [Mass/Vol] 142 mg/dL High 70-100 [facility] Comment on above: Performed By: #### 8 5499 #### [facility] [address] UFH HEPARIN ASSAYon 11-22-19 UNFRACTIONATED HEPARIN 0.41 IU/mL Normal 0.30-0.70 [facility] Comment on above: Result Comment: Brittani roxaban and Apixaban will interfere with the anti Xa assay used to monitor UFH and LMWH. Performed By: #### 3 0477 #### [facility] [address] [facility] [address] VITAMIN B12on 11-21-2021 Cobalamin (Vitamin B12) [Mass/Vol] 422 pg/mL Normal 180-914 [facility] Comment on above: Result Comment: REFE RENCE RANGES: 180-914 pg/mL Normal 145-179 pg/mL Indeterminate <145 pg/mL Deficient Performed By: #### 1 0070, 58499, 35325, 28075 ####[facility] [facility].[address] BASIC METABOLIC PANELon 10-27 Calcium [Mass/Vol] 8.4 mg/dL Low 8.6-10.3 [facility] Comment on above: Order Comment: No: D o not add to previous draw Performed By: #### 3 0477 #### [facility] [address] [facility] [place] [address], [facility] Chloride [Moles/Vol] 104 mmol/L Normal 98-107 [facility] Comment on above: Order Comment: No: D o not add to previous draw Performed By: #### 3 0477 #### [facility] [address] [place] [address], [facility] CO2 [Moles/Vol] 31 mmol/L Normal 21-31 [facility] Comment on above: Order Comment: No: D o not add to previous draw Performed By: #### 3 0477 #### [facility] [address] [place] [address], [facility] Creatinine [Mass/Vol] 2.22 mg/dL High 0.70-1.30 [facility] Comment on above: Order Comment: No: D o not add to previous draw Performed By: #### 3 0477 #### [facility] [address] [place] [address], [facility] eGFR- 34 ml/min/1.73sq m Abnormal >60 [facility] Comment on above: Order Comment: No: D o not add to previous draw Result Comment: Calc ulation may not be valid for patients over 70 years Performed By: #### 3 0477 #### [facility] [address] [place] [address], [facility] eGFR- non- 28 ml/min/1.73sq m Abnormal >60 [facility] Comment on above: Order Comment: No: D o not add to previous draw Result Comment: Calc ulation may not be valid for patients over 70 years Performed By: #### 3 0477 #### [facility] [address] [place] [address], [facility] Glucose [Mass/Vol] 139 mg/dL High 70-100 [facility] Comment on above: Order Comment: No: D o not add to previous draw Performed By: #### 3 0477 #### [facility] [address] [place] [address], [facility] Potassium [Moles/Vol] 3.3 mmol/L Low 3.5-5.1 [facility] Comment on above: Order Comment: No: D o not add to previous draw Performed By: #### 3 0477 #### [facility] [address] [place] [address], [facility] Sodium [Moles/Vol] 143 mmol/L Normal 136-145 [facility] Comment on above: Order Comment: No: D o not add to previous draw Performed By: #### 3 0477 #### [facility] [address] [place] [address], [facility] Urea nitrogen [Mass/Vol] 49 mg/dL High 7-25 [facility] Comment on above: Order Comment: No: D o not add to previous draw Performed By: #### 3 7 #### [facility] [address] [facility] [address] CBC COMPLETE BLOOD COUNTon 0 11-20-2021 Hematocrit (Bld) [Volume fraction] 21.9 % Low 39.0-50.0 [facility] Comment on above: Order Comment: pleas e start lab draw at 5pm followed by q12 at 5am tomorrow No: Do not add to previous draw Performed By: #### 9 2088 #### [facility] [address] [facility] [place] [address], [facility] Hemoglobin (Bld) [Mass/Vol] 7.1 g/dL Low 13.0-17.0 [facility] Comment on above: Order Comment: pleas e start lab draw at 5pm followed by q12 at 5am tomorrow No: Do not add to previous draw Performed By: #### 9 9 #### [facility] [address] [facility] [place] [address], [facility] IMM PLATELET FRAC 20.3 % High 0.8-6.3 [facility] Comment on above: Order Comment: pleas e start lab draw at 5pm followed by q12 at 5am tomorrow No: Do not add to previous draw Performed By: #### 9 2088 #### [facility] [address] [place] [address], [facility] MCH (RBC) [Entitic mass] 36.4 pg High 27.0-33.0 [facility] Comment on above: Order Comment: pleas e start lab draw at 5pm followed by q12 at 5am tomorrow No: Do not add to previous draw Performed By: #### 2088 #### [facility] [address] [place] [address], [facility] MCHC (RBC) [Mass/Vol] 32.4 g/dL Normal 32.0-35.0 [facility] Comment on above: Order Comment: pleas e start lab draw at 5pm followed by q12 at 5am tomorrow No: Do not add to previous draw Performed By: #### 2088 #### [facility] [address] [facility] [address], [facility] MCV (RBC) [Entitic vol] 112.3 fL High 82.0-98.0 [facility] Comment on above: Order Comment: pleas e start lab draw at 5pm followed by q12 at 5am tomorrow No: Do not add to previous draw Performed By: #### 2088 #### [facility] [address] [facility] [place] [address], [facility] Nucleated RBC/100 WBC (Bld) [Ratio] 0 % Normal 0-0 [facility] Comment on above: Order Comment: pleas e start lab draw at 5pm followed by q12 at 5am tomorrow No: Do not add to previous draw Performed By: #### 2088 #### [facility] [address] [facility] [address], [facility] PLAT CNT 91 10*3/uL Low 150-400 [facility] Comment on above: Order Comment: pleas e start lab draw at 5pm followed by q12 at 5am tomorrow No: Do not add to previous draw Performed By: #### 2088 #### [facility] [address] [facility] [place] [address], [facility] RBC (Bld) [#/Vol] 1.95 10*6/uL Low 4.20-5.70 [facility] Comment on above: Order Comment: pleas e start lab draw at 5pm followed by q12 at 5am tomorrow No: Do not add to previous draw Performed By: #### 9 2088 #### [facility] [address] [place] [address], [facility] RDW ---- Normal 11.5-15.0 [facility] Comment on above: Order Comment: pleas e start lab draw at 5pm followed by q12 at 5am tomorrow No: Do not add to previous draw Performed By: #### 2088 #### [facility] [address] [place] [address], [facility] WBC (Bld) [#/Vol] 8.30 10*3/uL Normal 4.00-10.60 [facility] Comment on above: Order Comment: pleas e start lab draw at 5pm followed by q12 at 5am tomorrow No: Do not add to previous draw Performed By: #### 2088 #### [facility] [address] [place] [address], [facility] HEMATOCRITon 11-20-2021 Hematocrit (Bld) [Volume fraction] 23.6 % Low 39.0-50.0 [facility] Comment on above: Order Comment: pleas e start lab draw at 5pm followed by q12 at 5am tomorrow No: Do not add to previous draw Performed By: #### 2088 #### [facility] [address] [place] [address], [facility] HEMOGLOBINon 11-20-2021 Hemoglobin (Bld) [Mass/Vol] 7.8 g/dL Low 13.0-17.0 [facility] Comment on above: Order Comment: pleas e start lab draw at 5pm followed by q12 at 5am tomorrow No: Do not add to previous draw Performed By: #### 2088 #### [facility] [address] [place] [address], [facility] MAGNESIUM BLOODon 11-20-2021 Magnesium [Mass/Vol] 2.2 mg/dL Normal 1.9-2.7 [facility] Comment on above: Order Comment: No: D o not add to previous draw Performed By: #### 3 0477 #### [facility] [address] [place] [address], [facility] PHOSPHORUS BLOODon 2 Phosphate [Mass/Vol] 3.7 mg/dL Normal 2.5-5.0 [facility] Comment on above: Order Comment: No: D o not add to previous draw Performed By: #### 3 0477 #### [facility] [address] [place] [address], [facility] POC GLUCOSE LABon 11-20-2021 Glucose [Mass/Vol] 137 mg/dL High 70-100 [facility] Comment on above: Performed By: #### 3 0313 #### [facility] [address] [place] [address], [facility] Glucose [Mass/Vol] 134 mg/dL High 70-100 [facility] Comment on above: Performed By: #### 3 2044 #### [facility] [address] [facility] [place] [address], [facility] Glucose [Mass/Vol] 148 mg/dL High 70-100 [facility] Comment on above: Performed By: #### 8 5499 #### [facility] [address] [place] [address], [facility] RBC'S 1 UNITon 11-20-2021 CROSSMATCH INTERP 1 COMP Normal [facility] Comment on above: Performed By: #### 8 6001 #### [facility] [address] [facility] [place] [address], [facility] PRODUCT CODE 1 E0336 Normal [facility] Comment on above: Performed By: #### 8 6001 #### [facility] [address] [place] [place] [address], [place] PRODUCT STATUS 1 RE Normal [facility] Comment on above: Result Comment: Resu lt changed by IF on 11/21/2021 07:27. The previous value was XM. Performed By: #### 8 6001 #### [facility] [address] [place] [address], [facility] UNIT ABO 1 A Normal [facility] Comment on above: Performed By: #### 8 6001 #### [facility] [address] [place] [address], [facility] UNIT ID 1 [id number] Normal [facility] Comment on above: Performed By: #### 8 6001 #### [facility] [address] [place] [address], [facility] UNIT RH 1 Positive Normal [facility] Comment on above: Performed By: #### 8 6001 #### [facility] [address] [place] [address], [facility] RBC'S 2 UNITSon 11-20-2021 CROSSMATCH INTERP 1 COMP Normal [facility] Comment on above: Order Comment: Evalu ate for Cardiomegaly Performed By: #### 8 6002 ####[facility] [facility] [place] [address], [facility] CROSSMATCH INTERP 2 COMP Normal [facility] Comment on above: Order Comment: Evalu ate for Cardiomegaly Performed By: #### 8 6002 ####[facility] [place] [address], [facility] PRODUCT CODE 1 E0336 Normal [facility] Comment on above: Order Comment: Evalu ate for Cardiomegaly Performed By: #### 8 6002 ####[facility] [place] [address], [facility] PRODUCT CODE 2 E0336 Normal [facility] Comment on above: Order Comment: Evalu ate for Cardiomegaly Performed By: #### 8 6002 ####[facility] [place] [address], [facility] PRODUCT STATUS 1 PT Normal [facility] Comment on above: Order Comment: Evalu ate for Cardiomegaly Result Comment: Resu lt changed by IF on 11/20/2021 08:02. The previous value was XM. Result changed by IF on 11/21/2021 00:30. The previous value was IS. Performed By: #### 8 6002 ####[facility] [place] [address], [facility] PRODUCT STATUS 2 PT Normal [facility] Comment on above: Order Comment: Evalu ate for Cardiomegaly Result Comment: Resu lt changed by IF on 11/20/2021 19:00. The previous value was XX. Result changed by IF on 11/21/2021 00:30. The previous value was IS. Performed By: #### 8 6002 ####[facility] [place] [address], [facility] UNIT ABO 1 A Normal [facility] Comment on above: Order Comment: Evalu ate for Cardiomegaly Performed By: #### 8 6002 ####[facility] [place] [address], [facility] UNIT ABO 2 A Normal [facility] Comment on above: Order Comment: Evalu ate for Cardiomegaly Performed By: #### 8 6002 ####[facility] [place] [address], [facility] UNIT ID 1 [id number] Normal [facility] Comment on above: Order Comment: Evalu ate for Cardiomegaly Performed By: #### 8 6002 ####[facility] [place] [address], [facility] UNIT ID 2 [id number] Normal [facility] Comment on above: Order Comment: Evalu ate for Cardiomegaly Performed By: #### 8 6002 ####[facility] [place] [address], [facility] UNIT RH 1 Positive Normal [facility] Comment on above: Order Comment: Evalu ate for Cardiomegaly Performed By: #### 8 6002 ####[facility] [place] [address], [facility] UNIT RH 2 Positive Normal [facility] Comment on above: Order Comment: Evalu ate for Cardiomegaly Performed By: #### 8 6002 ####[facility] [place] [address], [facility] UFH HEPARIN ASSAYon 11-21-19 UNFRACTIONATED HEPARIN 0.32 IU/mL Normal 0.30-0.70 [facility] Comment on above: Result Comment: Brittani roxaban and Apixaban will interfere with the anti Xa assay used to monitor UFH and LMWH. Performed By: #### 3 0477 #### [facility] [address] UNFRACTIONATED HEPARIN 0.36 IU/mL Normal 0.30-0.70 [facility] Comment on above: Result Comment: Ovid roxaban and Apixaban will interfere with the anti Xa assay used to monitor UFH and LMWH. Performed By: #### 3 0477 #### [facility] [address] APTTon 11-19-2021 aPTT Coag (Bld) [Time] 32.7 s Normal 25.0-35.0 [facility] Comment on above: Order Comment: No: D [...] PURPOSE. Performed By: #### 5 0103 #### [facility] [address] [place] [address], [facility] BASIC METABOLIC PANELon 04-2 Calcium [Mass/Vol] 8.3 mg/dL Low 8.6-10.3 [facility] Comment on above: Order Comment: Evalu ate for Cardiomegaly Performed By: #### 1 0070, 31695, 36551 ####[facility] [place] [address], [facility] Chloride [Moles/Vol] 104 mmol/L Normal 98-107 [facility] Comment on above: Order Comment: Evalu ate for Cardiomegaly Performed By: #### 1 0070, 88924, 57807 ####[facility] [place] [address], [facility] CO2 [Moles/Vol] 24 mmol/L Normal 21-31 [facility] Comment on above: Order Comment: Evalu ate for Cardiomegaly Performed By: #### 1 0070, 69040, 65695 ####[facility] [place] [address], [facility] Creatinine [Mass/Vol] 2.03 mg/dL High 0.70-1.30 [facility] Comment on above: Order Comment: Evalu ate for Cardiomegaly Performed By: #### 1 0070, 96905, 72337 ####[facility] [place] [address], [facility] eGFR- 38 ml/min/1.73sq m Abnormal >60 [facility] Comment on above: Order Comment: Evalu ate for Cardiomegaly Result Comment: Calc ulation may not be valid for patients over 70 years Performed By: #### 1 0070, 40190, 95831 ####[facility] [place] [address], [facility] eGFR- non- 32 ml/min/1.73sq m Abnormal >60 [facility] Comment on above: Order Comment: Evalu ate for Cardiomegaly Result Comment: Calc ulation may not be valid for patients over 70 years Performed By: #### 1 0070, 42264, 98215 ####[facility] [place] [address], [place] Glucose [Mass/Vol] 141 mg/dL High 70-100 [facility] Comment on above: Order Comment: Evalu ate for Cardiomegaly Performed By: #### 1 0070, 66480, 28126 ####[facility] [place] [address], [place] Potassium [Moles/Vol] 3.8 mmol/L Normal 3.5-5.1 [facility] Comment on above: Order Comment: Evalu ate for Cardiomegaly Performed By: #### 1 0070, 90834, 81559 ####[facility] [place] [address], [place] Sodium [Moles/Vol] 141 mmol/L Normal 136-145 [facility] Comment on above: Order Comment: Evalu ate for Cardiomegaly Performed By: #### 1 0070, 38156, 43631 ####[facility] [place] [address], [place] Urea nitrogen [Mass/Vol] 42 mg/dL High 7-25 [facility] Comment on above: Order Comment: Evalu ate for Cardiomegaly Performed By: #### 1 0070, 43115, 23854 ####[facility] [place] [address], [place] CBC COMPLETE BLOOD COUNTon 0 11-19-2021 Hematocrit (Bld) [Volume fraction] 24.9 % Low 39.0-50.0 [facility] Comment on above: Order Comment: RIGHT BICEP Performed By: #### 3 0313 #### [facility] [address] [place] [address], [place] Hemoglobin (Bld) [Mass/Vol] 7.9 g/dL Low 13.0-17.0 [facility] Comment on above: Order Comment: RIGHT BICEP Performed By: #### 3 0313 #### [facility] [address] [facility] [place] [address], [facility] IMM PLATELET FRAC 19.8 % High 0.8-6.3 [facility] Comment on above: Order Comment: RIGHT BICEP Performed By: #### 3 0313 #### [facility] [address] [facility] [place] [address], [facility] MCH (RBC) [Entitic mass] 36.1 pg High 27.0-33.0 [facility] Comment on above: Order Comment: RIGHT BICEP Performed By: #### 3 0313 #### [facility] [address] [facility] [address] MCHC (RBC) [Mass/Vol] 31.7 g/dL Low 32.0-35.0 [facility] Comment on above: Order Comment: RIGHT BICEP Performed By: #### 3 0313 #### [facility] [address] [facility] [place] [address], [facility] MCV (RBC) [Entitic vol] 113.7 fL High 82.0-98.0 [facility] Comment on above: Order Comment: RIGHT BICEP Performed By: #### 3 0313 #### [facility] [address] [facility] [place] [address], [facility] Nucleated RBC/100 WBC (Bld) [Ratio] 0 % Normal 0-0 [facility] Comment on above: Order Comment: RIGHT BICEP Performed By: #### 3 0313 #### [facility] [address] [facility] [place] [address], [facility] PLAT CNT 73 10*3/uL Low 150-400 [facility] Comment on above: Order Comment: RIGHT BICEP Performed By: #### 3 0313 #### [facility] [address] [facility]. [address] RBC (Bld) [#/Vol] 2.19 10*6/uL Low 4.20-5.70 [facility] Comment on above: Order Comment: RIGHT BICEP Performed By: #### 3 0313 #### [facility] [address] [place] [address], [facility] RDW ---- Normal 11.5-15.0 [facility] Comment on above: Order Comment: RIGHT BICEP Performed By: #### 3 0313 #### [facility] [address] [place] [address], [place] WBC (Bld) [#/Vol] 11.57 10*3/uL High 4.00-10.60 [facility] Comment on above: Order Comment: RIGHT BICEP Performed By: #### 3 3 #### [facility] [address] [place] [address], [facility] MAGNESIUM BLOODon 11-19-2021 Magnesium [Mass/Vol] 2.0 mg/dL Normal 1.9-2.7 [facility] Comment on above: Order Comment: Evalu ate for Cardiomegaly Performed By: #### 1 0070, 26780, 15724 ####[facility] [place] [address], [facility] PHOSPHORUS BLOODon Phosphate [Mass/Vol] 3.3 mg/dL Normal 2.5-5.0 [facility] Comment on above: Order Comment: Evalu ate for Cardiomegaly Performed By: #### 1 0070, 87258, 84433 ####[facility] [place] [address], [place] POC GLUCOSE LABon 11-19-2021 Glucose [Mass/Vol] 174 mg/dL High 70-100 [facility] Comment on above: Performed By: #### 3 4 #### [facility] [address] [place] [address], [place] Glucose [Mass/Vol] 183 mg/dL High 70-100 [facility] Comment on above: Performed By: #### 3 4 #### [facility] [address] [facility] [place] [address], [facility] Glucose [Mass/Vol] 161 mg/dL High 70-100 [facility] Comment on above: Performed By: #### 3 4 #### [facility] [address] [facility] [place] [address], [facility] TROPONIN-Ion 11-19-2021 Troponin I.cardiac [Mass/Vol] 2.17 ng/mL Critically high 0.00-0.04 [facility] Comment on above: Order Comment: Evalu ate for Cardiomegaly Result Comment: M-ID EVIOUS CRITICAL RESULT REFERENCE RANGES: 0.00 - 0.04 ng/ml NORMAL 0.05 - 0.50 ng/ml INDETERMINATE > 0.50 ng/ml CONSISTENT WITH AN M.I. Performed By: #### 3 5200 ####[facility] UFH HEPARIN ASSAYon 11-20-19 22 UNFRACTIONATED HEPARIN 0.15 IU/mL Critically low 0.30-0.70 [facility] Comment on above: Result Comment: RESU LTS CHECKED AND CALLED. ACCURATELY READ BACK BY GALA SEN RN AT 2055 Rivaroxaban and Apixaban will interfere with the anti Xa assay used to monitor UFH and LMWH. Performed By: #### 3 6097 #### [facility] [address] [facility] [place] [address], [facility] UNFRACTIONATED HEPARIN <0.10 Critically low 0.30-0.70 [facility] Comment on above: Result Comment: RESU LTS CHECKED AND CALLED. ACCURATELY READ BACK BY TIFF ROSSI RN AT 1316 Rivaroxaban and Apixaban will interfere with the anti Xa assay used to monitor UFH and LMWH. Performed By: #### 5 0103 #### [facility] [address] [facility]. [address] *BLOOD CULTUREon 11-18-2021 *BLOOD CULTURE Clinical Report: (D) Specimen: BLOOD CULTURE Collected: 11/18/2021 04:44 Status: Final Last Updated: 11/23/2021 08:16 (1) RIGHT BICEP CULT RES (Final) No Growth Day 5 Normal [facility] Comment on above: Order Comment: RIGHT BICEP Performed By: #### 3 0313 #### [facility] [address] *BLOOD CULTURE Clinical Report: (D) Specimen: BLOOD CULTURE Collected: 11/18/2021 04:44 Status: Final Last Updated: 11/23/2021 08:16 (1) LEFT AC CULT RES (Final) No Growth Day 5 Normal [facility] Comment on above: Order Comment: RIGHT BICEP Performed By: #### 3 0313 #### [facility] [address] *SPUTUM CULTUREon 11-18-2021 *SPUTUM CULTURE Clinical [...] 8/4 Susceptible TOBRAMYCIN (TOB) <=2 Susceptible Normal [facility] Comment on above: Order Comment: RIGHT BICEP Performed By: #### 3 0313 #### [facility] [address] APTTon 11-18-2021 aPTT Coag (Bld) [Time] 27.5 s Normal 25.0-35.0 [facility] Comment on above: Order Comment: No: D [...] PURPOSE. Performed By: #### 5 0103 #### [facility] [address] [place] [address], [facility] aPTT Coag (Bld) [Time] 25.6 s Normal 25.0-35.0 [facility] Comment on above: Result Comment: ALL RESULTS [...] PURPOSE. Performed By: #### 3 0477 #### [facility] [address] [place] [address], [facility] BASIC METABOLIC PANELon 10-27 Calcium [Mass/Vol] 8.5 mg/dL Low 8.6-10.3 [facility] Comment on above: Order Comment: No: D o not add to previous draw Performed By: #### 8 6001 #### [facility] [address] [place] [address], [facility] Chloride [Moles/Vol] 100 mmol/L Normal 98-107 [facility] Comment on above: Order Comment: No: D o not add to previous draw Performed By: #### 8 6001 #### [facility] [address] [place] [address], [place] CO2 [Moles/Vol] 26 mmol/L Normal 21-31 [facility] Comment on above: Order Comment: No: D o not add to previous draw Performed By: #### 8 6001 #### [facility] [address] [place] [address], [place] Creatinine [Mass/Vol] 2.27 mg/dL High 0.70-1.30 [facility] Comment on above: Order Comment: No: D o not add to previous draw Performed By: #### 8 6001 #### [facility] [address] [place] [address], [place] eGFR- 34 ml/min/1.73sq m Abnormal >60 [facility] Comment on above: Order Comment: No: D o not add to previous draw Result Comment: Calc ulation may not be valid for patients over 70 years Performed By: #### 8 6001 #### [facility] [address] [place] [address], [place] eGFR- non- 28 ml/min/1.73sq m Abnormal >60 [facility] Comment on above: Order Comment: No: D o not add to previous draw Result Comment: Calc ulation may not be valid for patients over 70 years Performed By: #### 8 6001 #### [facility] [address] [place] [address], [place] Glucose [Mass/Vol] 162 mg/dL High 70-100 [facility] Comment on above: Order Comment: No: D o not add to previous draw Performed By: #### 8 6001 #### [facility] [address] [place] [address], [place] Potassium [Moles/Vol] 4.1 mmol/L Normal 3.5-5.1 [facility] Comment on above: Order Comment: No: D o not add to previous draw Performed By: #### 8 6001 #### [facility] [address] [place] [address], [place] Sodium [Moles/Vol] 140 mmol/L Normal 136-145 [facility] Comment on above: Order Comment: No: D o not add to previous draw Performed By: #### 8 6001 #### [facility] [address] Urea nitrogen [Mass/Vol] 38 mg/dL High 7-25 [facility] Comment on above: Order Comment: No: D o not add to previous draw Performed By: #### 8 6001 #### [facility] [address] CBC W/DIFFon 11-18-2021 ABS IMM GRANS 0.1 10*3/uL Normal 0.0-0.2 [facility] Comment on above: Order Comment: No: D o not add to previous draw Performed By: #### 5 0103 #### [facility] [address] ABS NEUTROPHILS 8.1 10*3/uL High 1.6-7.6 [facility] Comment on above: Order Comment: No: D o not add to previous draw Performed By: #### 5 0103 #### [facility] [address] ANISO Moderate Normal [facility] Comment on above: Order Comment: No: D o not add to previous draw Performed By: #### 5 0103 #### [facility] [address] Basophils (Bld) [#/Vol] 0.0 10*3/uL Normal 0.0-0.2 [facility] Comment on above: Order Comment: No: D o not add to previous draw Performed By: #### 5 0103 #### [facility] [address] [place] [address], [facility] Basophils/100 WBC (Bld) 0.2 % Normal 0.0-1.0 [facility] Comment on above: Order Comment: No: D o not add to previous draw Performed By: #### 5 0103 #### [facility] [address] [place] [address], [facility] Eosinophils (Bld) [#/Vol] 0.0 10*3/uL Normal 0.0-0.5 [facility] Comment on above: Order Comment: No: D o not add to previous draw Performed By: #### 5 0103 #### [facility] [address] [place] [address], [facility] Eosinophils/100 WBC (Bld) 0.0 % Normal 0.0-6.0 [facility] Comment on above: Order Comment: No: D o not add to previous draw Performed By: #### 5 0103 #### [facility] [address] [place] [address], [facility] Hematocrit (Bld) [Volume fraction] 22.5 % Low 39.0-50.0 [facility] Comment on above: Order Comment: No: D o not add to previous draw Performed By: #### 5 0103 #### [facility] [address] [place] [address], [facility] Hemoglobin (Bld) [Mass/Vol] 7.3 g/dL Low 13.0-17.0 [facility] Comment on above: Order Comment: No: D o not add to previous draw Performed By: #### 5 0103 #### [facility] [address] [place] [address], [facility] IMM PLATELET FRAC 19.9 % High 0.8-6.3 [facility] Comment on above: Order Comment: No: D o not add to previous draw Performed By: #### 5 0103 #### [facility] [address] [place] [address], [facility] IMMATURE GRANS 0.8 % Normal 0.0-1.0 [facility] Comment on above: Order Comment: No: D o not add to previous draw Performed By: #### 5 0103 #### [facility] [address] [place] [address], [facility] Lymphocytes (Bld) [#/Vol] 0.6 10*3/uL Low 1.2-4.0 [facility] Comment on above: Order Comment: No: D o not add to previous draw Performed By: #### 5 0103 #### [facility] [address] [place] [address], [facility] Lymphocytes/100 WBC (Bld) 5.3 % Low 20.0-45.0 [facility] Comment on above: Order Comment: No: D o not add to previous draw Performed By: #### 5 0103 #### [facility] [address] [place] [address], [facility] MACRO Slight Normal [facility] Comment on above: Order Comment: No: D o not add to previous draw Performed By: #### 5 0103 #### [facility] [address] [place] [address], [facility] MCH (RBC) [Entitic mass] 35.4 pg High 27.0-33.0 [facility] Comment on above: Order Comment: No: D o not add to previous draw Performed By: #### 5 0103 #### [facility] [address] [place] [address], [facility] MCHC (RBC) [Mass/Vol] 32.4 g/dL Normal 32.0-35.0 [facility] Comment on above: Order Comment: No: D o not add to previous draw Performed By: #### 5 0103 #### [facility] [address] [place] [address], [facility] MCV (RBC) [Entitic vol] 109.2 fL High 82.0-98.0 [facility] Comment on above: Order Comment: No: D o not add to previous draw Performed By: #### 5 0103 #### [facility] [address] [place] [address], [facility] Monocytes (Bld) [#/Vol] 2.3 10*3/uL High 0.1-1.0 [facility] Comment on above: Order Comment: No: D o not add to previous draw Performed By: #### 5 0103 #### [facility] [address] [place] [address], [place] MONOS 20.6 % High 5.0-12.0 [facility] Comment on above: Order Comment: No: D o not add to previous draw Performed By: #### 5 0103 #### [facility] [address] [place] [address], [facility] Neutrophils/100 WBC (Bld) 73.1 % High 40.0-72.0 [facility] Comment on above: Order Comment: No: D o not add to previous draw Performed By: #### 5 0103 #### [facility] [address] [place] [address], [facility] Nucleated RBC/100 WBC (Bld) [Ratio] 0 % Normal 0-0 [facility] Comment on above: Order Comment: No: D o not add to previous draw Performed By: #### 5 0103 #### [facility] [address] [place] [address], [facility] OTHER 1 2 red cell populations Normal [facility] Comment on above: Order Comment: No: D o not add to previous draw Performed By: #### 5 0103 #### [facility] [address] [place] [address], [place] PLAT CNT 53 10*3/uL Low 150-400 [facility] Comment on above: Order Comment: No: D o not add to previous draw Performed By: #### 5 0103 #### [facility] [address] [place] [address], [place] POIK Slight Normal [facility] Comment on above: Order Comment: No: D o not add to previous draw Performed By: #### 5 0103 #### [facility] [address] [place] [address], [facility] POLY Slight Normal [facility] Comment on above: Order Comment: No: D o not add to previous draw Performed By: #### 5 0103 #### [facility] [address] [place] [id number], [facility] RBC (Bld) [#/Vol] 2.06 10*6/uL Low 4.20-5.70 [facility] Comment on above: Order Comment: No: D o not add to previous draw Performed By: #### 5 0103 #### [facility] [address] [place] [address], [facility] RDW ---- Normal 11.5-15.0 [facility] Comment on above: Order Comment: No: D o not add to previous draw Performed By: #### 5 0103 #### [facility] [address] [place] [address], [facility] WBC (Bld) [#/Vol] 11.14 10*3/uL High 4.00-10.60 [facility] Comment on above: Order Comment: No: D o not add to previous draw Performed By: #### 5 0103 #### [facility] [address] [place] [address], [facility] ABS IMM GRANS 0.1 10*3/uL Normal 0.0-0.2 [facility] Comment on above: Performed By: #### 3 0313 #### [facility] [address] [place] [address], [facility] ABS NEUTROPHILS 8.0 10*3/uL High 1.6-7.6 [facility] Comment on above: Performed By: #### 3 0313 #### [facility] [address] [place] [address], [facility] ANISO Moderate Normal [facility] Comment on above: Performed By: #### 3 0313 #### [facility] [address] [place] [address], [facility] Basophils (Bld) [#/Vol] 0.0 10*3/uL Normal 0.0-0.2 [facility] Comment on above: Performed By: #### 3 0313 #### [facility] [address] [place] [address], [facility] Basophils/100 WBC (Bld) 0.2 % Normal 0.0-1.0 [facility] Comment on above: Performed By: #### 3 0313 #### [facility] [address] [facility] [place] [address], [facility] Eosinophils (Bld) [#/Vol] 0.0 10*3/uL Normal 0.0-0.5 [facility] Comment on above: Performed By: #### 3 0313 #### [facility] [address] [place] [address], [facility] Eosinophils/100 WBC (Bld) 0.1 % Normal 0.0-6.0 [facility] Comment on above: Performed By: #### 3 0313 #### [facility] [address] [facility] [place] [address], [facility] Hematocrit (Bld) [Volume fraction] 21.7 % Low 39.0-50.0 [facility] Comment on above: Performed By: #### 3 0313 #### [facility] [address] [place] [id number], [facility] Hemoglobin (Bld) [Mass/Vol] 7.1 g/dL Low 13.0-17.0 [facility] Comment on above: Performed By: #### 3 0313 #### [facility] [address] [place] [address], [facility] IMM PLATELET FRAC 19.7 % High 0.8-6.3 [facility] Comment on above: Performed By: #### 3 0313 #### [facility] [address] IMMATURE GRANS 1.2 % High 0.0-1.0 [facility] Comment on above: Performed By: #### 3 0313 #### [facility] [address] Lymphocytes (Bld) [#/Vol] 0.6 10*3/uL Low 1.2-4.0 [facility] Comment on above: Performed By: #### 3 3 #### [facility] [address] Lymphocytes/100 WBC (Bld) 5.0 % Low 20.0-45.0 [facility] Comment on above: Performed By: #### 3 0313 #### [facility] [address] MACRO Slight Normal [facility] Comment on above: Performed By: #### 3 0313 #### [facility] [address] MCH (RBC) [Entitic mass] 36.0 pg High 27.0-33.0 [facility] Comment on above: Performed By: #### 3 0313 #### [facility] [address] MCHC (RBC) [Mass/Vol] 32.7 g/dL Normal 32.0-35.0 [facility] Comment on above: Performed By: #### 3 0313 #### [facility] [address] MCV (RBC) [Entitic vol] 110.2 fL High 82.0-98.0 [facility] Comment on above: Performed By: #### 3 0313 #### [facility] [address] [place] [address], [facility] Monocytes (Bld) [#/Vol] 2.3 10*3/uL High 0.1-1.0 [facility] Comment on above: Performed By: #### 3 0313 #### [facility] [address] [place] [address], [facility] MONOS 20.6 % High 5.0-12.0 [facility] Comment on above: Performed By: #### 3 0313 #### [facility] [address] [place] [address], [facility] Neutrophils/100 WBC (Bld) 72.9 % High 40.0-72.0 [facility] Comment on above: Performed By: #### 3 0313 #### [facility] [address] [place] [address], [facility] Nucleated RBC/100 WBC (Bld) [Ratio] 0 % Normal 0-0 [facility] Comment on above: Performed By: #### 3 0313 #### [facility] [address] [facility] [address], [facility] OTHER 1 2 cell populations Normal [facility] Comment on above: Performed By: #### 3 0313 #### [facility] [address] [place] [address], [facility] PLAT CNT 48 10*3/uL Low 150-400 [facility] Comment on above: Performed By: #### 3 0313 #### [facility] [address] [facility] [place] [address], [facility] POLY Slight Normal [facility] Comment on above: Performed By: #### 3 0313 #### [facility] [address] [place] [address], [facility] RBC (Bld) [#/Vol] 1.97 10*6/uL Low 4.20-5.70 [facility] Comment on above: Performed By: #### 3 0313 #### [facility] [address] [place] [address], [facility] RDW ---- Normal 11.5-15.0 [facility] Comment on above: Performed By: #### 3 0313 #### [facility] [address] [place] [address], [place] WBC (Bld) [#/Vol] 11.02 10*3/uL High 4.00-10.60 [facility] Comment on above: Performed By: #### 3 0313 #### [facility] [address] [place] [address], [facility] COMP METABOLIC PANELon 11-18 Albumin [Mass/Vol] 3.8 g/dL Normal 3.5-5.7 [facility] Comment on above: Order Comment: No: D o not add to previous draw Performed By: #### 8 6001 #### [facility] [address] [place] [address], [place] ALKALINE PHOSPH 42 IU/L Normal 34-104 [facility] Comment on above: Order Comment: No: D o not add to previous draw Performed By: #### 8 6001 #### [facility] [address] [place] [address], [place] ALT [Catalytic activity/Vol] 48 U/L Normal 7-52 [facility] Comment on above: Order Comment: No: D o not add to previous draw Performed By: #### 8 6001 #### [facility] [address] [place] [address], [place] AST [Catalytic activity/Vol] 47 U/L High 13-39 [facility] Comment on above: Order Comment: No: D o not add to previous draw Performed By: #### 8 6001 #### [facility] [address] [place] [address], [place] Bilirubin [Mass/Vol] 1.4 mg/dL High 0.3-1.0 [facility] Comment on above: Order Comment: No: D o not add to previous draw Performed By: #### 8 6001 #### [facility] [address] [place] [address], [facility] Calcium [Mass/Vol] 8.7 mg/dL Normal 8.6-10.3 [facility] Comment on above: Order Comment: No: D o not add to previous draw Performed By: #### 8 6001 #### [facility] [address] [place] [address], [place] Chloride [Moles/Vol] 103 mmol/L Normal 98-107 [facility] Comment on above: Order Comment: No: D o not add to previous draw Performed By: #### 8 6001 #### [facility] [address] [place] [address], [place] CO2 [Moles/Vol] 27 mmol/L Normal 21-31 [facility] Comment on above: Order Comment: No: D o not add to previous draw Performed By: #### 8 6001 #### [facility] [address] [place] [address], [facility] Creatinine [Mass/Vol] 2.44 mg/dL High 0.70-1.30 [facility] Comment on above: Order Comment: No: D o not add to previous draw Performed By: #### 8 6001 #### [facility] [address] [place] [address], [place] eGFR- 31 ml/min/1.73sq m Abnormal >60 [facility] Comment on above: Order Comment: No: D o not add to previous draw Result Comment: Calc ulation may not be valid for patients over 70 years Performed By: #### 8 6001 #### [facility] [address] [place] [address], [place] eGFR- non- 26 ml/min/1.73sq m Abnormal >60 [facility] Comment on above: Order Comment: No: D o not add to previous draw Result Comment: Calc ulation may not be valid for patients over 70 years Performed By: #### 8 6001 #### [facility] [address] [place] [address], [place] Glucose [Mass/Vol] 128 mg/dL High 70-100 [facility] Comment on above: Order Comment: No: D o not add to previous draw Performed By: #### 8 6001 #### [facility] [address] [place] [address], [place] Potassium [Moles/Vol] 4.0 mmol/L Normal 3.5-5.1 [facility] Comment on above: Order Comment: No: D o not add to previous draw Performed By: #### 8 6001 #### [facility] [address] [place] [address], [place] Protein [Mass/Vol] 6.1 g/dL Normal 6.0-8.3 [facility] Comment on above: Order Comment: No: D o not add to previous draw Performed By: #### 8 6001 #### [facility] [address] [place] [address], [place] Sodium [Moles/Vol] 139 mmol/L Normal 136-145 [facility] Comment on above: Order Comment: No: D o not add to previous draw Performed By: #### 8 6001 #### [facility] [address] [place] [address], [place] Urea nitrogen [Mass/Vol] 34 mg/dL High 7-25 [facility] Comment on above: Order Comment: No: D o not add to previous draw Performed By: #### 8 6001 #### [facility] [address] [place] [address], [place] MAGNESIUM BLOODon 11-18-2021 Magnesium [Mass/Vol] 2.2 mg/dL Normal 1.9-2.7 [facility] Comment on above: Order Comment: No: D o not add to previous draw Performed By: #### 8 6001 #### [facility] [address] [place] [address], [place] PHOSPHORUS BLOODon 2 Phosphate [Mass/Vol] 3.5 mg/dL Normal 2.5-5.0 [facility] Comment on above: Order Comment: No: D o not add to previous draw Performed By: #### 8 6001 #### [facility] [address] [place] [address], [facility] POC GLUCOSE LABon 11-18-2021 Glucose [Mass/Vol] 171 mg/dL High 70-100 [facility] Comment on above: Performed By: #### 3 2044 #### [facility] [address] [place] [address], [place] Glucose [Mass/Vol] 169 mg/dL High 70-100 [facility] Comment on above: Performed By: #### 8 5499 #### [facility] [address] [place] [address], [facility] POC SARS COV2 ANTIGEN NEGATI VEon 11-18-2021 POC SARS COV2 ANTIGEN NEG Negative Normal NEGATIVE [facility] Comment on above: Result Comment: Nega tive [...] antigen from SARS-CoV-2 in direct nasopharyngeal swab ([employer]) specimens from individuals who are suspected of [...] Accreditation. Performed By: #### 3 2044 #### [facility] [address] PROCALCITONINon 11-18-2021 PROCALCITONIN 7.09 ng/mL Critically high 0.00-0.10 [facility] Comment on above: Order Comment: No: D [...] RN Performed By: #### 5 0103 #### [facility] [address] [place] [address], [place] PROTHROMBIN TIMEon 2 INR Coag (PPP) [Relative time] 1.31 {INR} High 0.91-1.16 [facility] Comment on above: Order Comment: No: D o not add to previous draw Result Comment: [facility] P RECOMMENDED INR FOR WARFARIN THERAPY -------- [...] 1995;108:231S-246S. Performed By: #### 5 0103 #### [facility] [address] [facility] [address], [facility] PT Coag (PPP) [Time] 16.3 s High 12.3-14.8 [facility] Comment on above: Order Comment: No: D o not add to previous draw Result Comment: ALL RESULTS MUST BE INTERPRETED WITH RESPECT TO BLOOD DRAWING ARTIFACT OR DILUTION ERROR OF ANTICOAGULANT AT THE TIME OF SAMPLING. Performed By: #### 5 0103 #### [facility] [address] [place] [address], [facility] INR Coag (PPP) [Relative time] 1.35 {INR} High 0.91-1.16 [facility] Comment on above: Result Comment: [facility] P RECOMMENDED INR FOR WARFARIN THERAPY -------- [...] 1995;108:231S-246S. Performed By: #### 3 0477 #### [facility] [address] [facility]. [address] PT Coag (PPP) [Time] 16.7 s High 12.3-14.8 [facility] Comment on above: Result Comment: ALL RESULTS MUST BE INTERPRETED WITH RESPECT TO BLOOD DRAWING ARTIFACT OR DILUTION ERROR OF ANTICOAGULANT AT THE TIME OF SAMPLING. Performed By: #### 3 0477 #### [facility] [address] [facility] [place] [address], [facility] RBC'S 1 UNITon 11-18-2021 CROSSMATCH INTERP 1 COMP Normal [facility] Comment on above: Performed By: #### 8 6001 ####[facility] [facility].[address] PRODUCT CODE 1 E0336 Normal [facility] Comment on above: Performed By: #### 8 6001 ####[facility] PRODUCT STATUS 1 PT Normal [facility] Comment on above: Result Comment: Resu lt changed by IF on 11/18/2021 02:27. The previous value was XX. Result changed by IF on 11/19/2021 00:30. The previous value was IS. Performed By: #### 8 6001 ####[facility] [place] [address], [facility] UNIT ABO 1 A Normal [facility] Comment on above: Performed By: #### 8 6001 ####[facility] [facility] [place] [address], [facility] UNIT ID 1 [id number] Normal [facility] Comment on above: Performed By: #### 8 6001 ####[facility] [facility] [place] [address], [facility] UNIT RH 1 Positive Normal [facility] Comment on above: Performed By: #### 8 6001 ####[facility] [facility] [place] [address], [facility] TROPONIN-Ion 11-18-2021 Troponin I.cardiac [Mass/Vol] 2.11 ng/mL Critically high 0.00-0.04 [facility] Comment on above: Order Comment: No: D o not add to previous draw Result Comment: M-ID EVIOUS CRITICAL RESULT REFERENCE RANGES: 0.00 - 0.04 ng/ml NORMAL 0.05 - 0.50 ng/ml INDETERMINATE > 0.50 ng/ml CONSISTENT WITH AN M.I. Performed By: #### 8 6001 #### [facility] [address] [place] [address], [facility] Troponin I.cardiac [Mass/Vol] 1.88 ng/mL Critically high 0.00-0.04 [facility] Comment on above: Order Comment: No: D o not add to previous draw Result Comment: M-ID EVIOUS CRITICAL RESULT REFERENCE RANGES: 0.00 - 0.04 ng/ml NORMAL 0.05 - 0.50 ng/ml INDETERMINATE > 0.50 ng/ml CONSISTENT WITH AN M.I. Performed By: #### 8 6001 #### [facility] [address] [place] [address], [facility] Troponin I.cardiac [Mass/Vol] 1.38 ng/mL Critically high 0.00-0.04 [facility] Comment on above: Order Comment: No: D o not add to previous draw Result Comment: M-ID EVIOUS CRITICAL RESULT REFERENCE RANGES: 0.00 - 0.04 ng/ml NORMAL 0.05 - 0.50 ng/ml INDETERMINATE > 0.50 ng/ml CONSISTENT WITH AN M.I. Performed By: #### 3 5200 ####[facility] [facility].[address] Troponin I.cardiac [Mass/Vol] 2.00 ng/mL Critically high 0.00-0.04 [facility] Comment on above: Result Comment: M-ID EVIOUS CRITICAL RESULT REFERENCE RANGES: 0.00 - 0.04 ng/ml NORMAL 0.05 - 0.50 ng/ml INDETERMINATE > 0.50 ng/ml CONSISTENT WITH AN M.I. Performed By: #### 8 6001 #### [facility] [address] [facility] [address] Troponin I.cardiac [Mass/Vol] 1.90 ng/mL Critically high 0.00-0.04 [facility] Comment on above: Result Comment: M-ID EVIOUS CRITICAL RESULT REFERENCE RANGES: 0.00 - 0.04 ng/ml NORMAL 0.05 - 0.50 ng/ml INDETERMINATE > 0.50 ng/ml CONSISTENT WITH AN M.I. Performed By: #### 3 5200 ####[facility] [facility].[address] VENOUS BLOOD GASon 2 BASE EXCESS 4 mmol/L Normal [facility] Comment on above: Performed By: #### 5 0103 #### [facility] [address] [facility] [place] [address], [facility] DELIVERY SYSTEMS V60 Normal [facility] Comment on above: Performed By: #### 5 0103 #### [facility] [address] [place] [address] [place] [address] HCO3 (Bld) [Moles/Vol] 29 mmol/L Normal [facility] Comment on above: Performed By: #### 5 0103 #### [facility] [address] [facility] [place] [address], [facility] MODALITY BIPAP 14/6 Normal [facility] Comment on above: Performed By: #### 5 0103 #### [facility] [address] Oxygen (Bld) [Partial pressure] 30 mm[Hg] Low 35-45 [facility] Comment on above: Performed By: #### 5 0103 #### [facility] [address] [facility]. [address] Oxygen saturation in Blood 37.1 % Low 65.0-75.0 [facility] Comment on above: Performed By: #### 5 0103 #### [facility] [address] [facility]. [address] PCO2 44 mmHg Normal [facility] Comment on above: Performed By: #### 5 0103 #### [facility] [address] pH (Bld) 7.43 [pH] High 7.31-7.41 [facility] Comment on above: Performed By: #### 5 0103 #### [facility] [address] [facility]. [address] APTTon 11-17-2021 aPTT Coag (Bld) [Time] 30.1 s Normal 25.0-35.0 [facility] Comment on above: Result Comment: ALL RESULTS [...] PURPOSE. Performed By: #### 5 0103 #### [facility] [address] [place] [address], [facility] BASIC METABOLIC PANELon 04-2 Calcium [Mass/Vol] 8.6 mg/dL Normal 8.6-10.3 [facility] Comment on above: Performed By: #### 1 0, [id number], [id number] ####[facility] [place] [address], [facility] Chloride [Moles/Vol] 99 mmol/L Normal 98-107 [facility] Comment on above: Performed By: #### 1 0, 59415, [id number] ####[facility] [place] [address], [facility] CO2 [Moles/Vol] 26 mmol/L Normal 21-31 [facility] Comment on above: Performed By: #### 1 0, , 78340 ####[facility] [place] [address], [facility] Creatinine [Mass/Vol] 2.68 mg/dL High 0.70-1.30 [facility] Comment on above: Performed By: #### 1 0, 98974, 73984 ####[facility] [place] [address], [facility] eGFR- 28 ml/min/1.73sq m Abnormal >60 [facility] Comment on above: Result Comment: Calc ulation may not be valid for patients over 70 years Performed By: #### 1 0070, 81282, 60023 ####[facility] [place] [address], [facility] eGFR- non- 23 ml/min/1.73sq m Abnormal >60 [facility] Comment on above: Result Comment: Calc ulation may not be valid for patients over 70 years Performed By: #### 1 0070, [id number], 03059 ####[facility] [place] [address], [facility] Glucose [Mass/Vol] 185 mg/dL High 70-100 [facility] Comment on above: Performed By: #### 1 0070, [id number], [id number] ####[facility] [facility] [place] [address], [facility] Potassium [Moles/Vol] 4.0 mmol/L Normal 3.5-5.1 [facility] Comment on above: Performed By: #### 1 0070, [id number], [id number] ####[facility] [facility] [place] [address], [facility] Sodium [Moles/Vol] 140 mmol/L Normal 136-145 [facility] Comment on above: Performed By: #### 1 0070, [id number], 18005 ####[facility] [facility].[address] Urea nitrogen [Mass/Vol] 34 mg/dL High 7-25 [facility] Comment on above: Performed By: #### 1 0070, 95786, [id number] ####[facility] [facility].[address] BNP EDon 11-17-2021 Natriuretic peptide B (Bld) [Mass/Vol] 1081 pg/mL High 0-100 [facility] Comment on above: Result Comment: Give n the appropriate clinical setting a BNP result of >100 pg/mL indicates congestive heart failure. Performed By: #### 8 6001 #### [facility] [address] [place] [address], [facility] CBC W/DIFFon 11-17-2021 ABS IMM GRANS 0.2 10*3/uL Normal 0.0-0.2 [facility] Comment on above: Performed By: #### 3 0313 #### [facility] [address] [place] [address], [facility] ABS NEUTROPHILS 9.3 10*3/uL High 1.6-7.6 [facility] Comment on above: Performed By: #### 3 0313 #### [facility] [address] [place] [address], [facility] ANISO Moderate Normal [facility] Comment on above: Performed By: #### 3 0313 #### [facility] [address] [place] [address], [facility] Basophils (Bld) [#/Vol] 0.0 10*3/uL Normal 0.0-0.2 [facility] Comment on above: Performed By: #### 3 0313 #### [facility] [address] [facility] [place] [address], [facility] Basophils/100 WBC (Bld) 0.2 % Normal 0.0-1.0 [facility] Comment on above: Performed By: #### 3 0313 #### [facility] [address] [place] [address], [facility] Eosinophils (Bld) [#/Vol] 0.0 10*3/uL Normal 0.0-0.5 [facility] Comment on above: Performed By: #### 3 0313 #### [facility] [address] [facility] [place] [address], [facility] Eosinophils/100 WBC (Bld) 0.0 % Normal 0.0-6.0 [facility] Comment on above: Performed By: #### 3 0313 #### [facility] [address] [facility] Erythrocyte distribution width (RBC) [Ratio] 21.6 % High 11.5-15.0 [facility] Comment on above: Performed By: #### 3 3 #### [facility] [address] [facility]. [address] Hematocrit (Bld) [Volume fraction] 20.1 % Low 39.0-50.0 [facility] Comment on above: Performed By: #### 3 0313 #### [facility] [address] [facility] [place] [address], [facility] Hemoglobin (Bld) [Mass/Vol] 6.5 g/dL Low 13.0-17.0 [facility] Comment on above: Performed By: #### 3 0313 #### [facility] [address] [facility] [place] [address], [facility] HYPO Moderate Normal [facility] Comment on above: Performed By: #### 3 0313 #### [facility] [address] [place] [address], [facility] IMM PLATELET FRAC 20.4 % High 0.8-6.3 [facility] Comment on above: Performed By: #### 3 0313 #### [facility] [address] [facility] [place] [address], [facility] IMMATURE GRANS 1.3 % High 0.0-1.0 [facility] Comment on above: Performed By: #### 3 0313 #### [facility] [address] [facility] [place] [address], [facility] Lymphocytes (Bld) [#/Vol] 0.6 10*3/uL Low 1.2-4.0 [facility] Comment on above: Performed By: #### 3 0313 #### [facility] [address] [facility] [place] [address], [facility] Lymphocytes/100 WBC (Bld) 4.7 % Low 20.0-45.0 [facility] Comment on above: Performed By: #### 3 0313 #### [facility] [address] [facility] [place] [address], [facility] MACRO Moderate Normal [facility] Comment on above: Performed By: #### 3 0313 #### [facility] [address] [facility] [place] [address], [facility] MCH (RBC) [Entitic mass] 37.1 pg High 27.0-33.0 [facility] Comment on above: Performed By: #### 3 0313 #### [facility] [address] [facility] [place] [address], [facility] MCHC (RBC) [Mass/Vol] 32.3 g/dL Normal 32.0-35.0 [facility] Comment on above: Performed By: #### 3 0313 #### [facility] [address] [facility] [place] [address], [facility] MCV (RBC) [Entitic vol] 114.9 fL High 82.0-98.0 [facility] Comment on above: Performed By: #### 3 0313 #### [facility] [address] [facility] [place] [address], [facility] Monocytes (Bld) [#/Vol] 2.5 10*3/uL High 0.1-1.0 [facility] Comment on above: Performed By: #### 3 0313 #### [facility] [address] [facility] [place] [address], [facility] MONOS 19.8 % High 5.0-12.0 [facility] Comment on above: Performed By: #### 3 0313 #### [facility] [address] [facility] [place] [address], [facility] Neutrophils/100 WBC (Bld) 74.0 % High 40.0-72.0 [facility] Comment on above: Performed By: #### 3 3 #### [facility] [address] [facility] [place] [address], [facility] Nucleated RBC/100 WBC (Bld) [Ratio] 0 % Normal 0-0 [facility] Comment on above: Performed By: #### 3 3 #### [facility] [address] [place] [address], [facility] OVALOCYTES Moderate Normal [facility] Comment on above: Performed By: #### 3 0313 #### [facility] [address] [place] [place] [address], [facility] PLAT CNT 52 10*3/uL Low 150-400 [facility] Comment on above: Performed By: #### 3 3 #### [facility] [address] [facility] [place] [address], [facility] POIK Moderate Normal [facility] Comment on above: Performed By: #### 3 0313 #### [facility] [address] [place] [place] [address], [facility] RBC (Bld) [#/Vol] 1.75 10*6/uL Low 4.20-5.70 [facility] Comment on above: Performed By: #### 3 3 #### [facility] [address] [place] [place] [address], [facility] WBC (Bld) [#/Vol] 12.59 10*3/uL High 4.00-10.60 [facility] Comment on above: Performed By: #### 3 3 #### [facility] [address] [facility] [place] [address], [facility] MAGNESIUM BLOODon 11-17-2021 Magnesium [Mass/Vol] 1.7 mg/dL Low 1.9-2.7 [facility] Comment on above: Performed By: #### 1 0070, 91089, 95116 ####[facility] PORTABLE CHEST 1 VIEWon 10-27 PORTABLE CHEST 1 VIEW [facility] Department of Radiology [address] [place] [id number] Patient Name: SANDIP BROUSSARD : 1940 Sex: M Age: Race: White Pt. Location: [facility] Patient Status: E Ordered Date: 11/17/2021 [...] recommended. Electronically signed: Jasper Zelaya. Transcribed by: [email or web address], User Resident: Electronically Signed by: JASPER ZELAYA @ 11/17/2021 07:43 PM Normal [facility] Comment on above: Order Comment: Evalu ate for Cardiomegaly PROTHROMBIN TIMEon 2 INR Coag (PPP) [Relative time] 1.42 {INR} High 0.91-1.16 [facility] Comment on above: Result Comment: ACCC P [...] 1995;[id number]. Performed By: #### 5 0103 #### [facility] [employer] [address] PT Coag (PPP) [Time] 17.3 s High 12.3-14.8 [facility] Comment on above: Result Comment: ALL RESULTS MUST BE INTERPRETED WITH RESPECT TO BLOOD DRAWING ARTIFACT OR DILUTION ERROR OF ANTICOAGULANT AT THE TIME OF SAMPLING. Performed By: #### 5 0103 #### [facility] [employer] [facility]. [address] RBC'S 1 UNITon 11-17-2021 CROSSMATCH INTERP 1 COMP Normal [facility] Comment on above: Performed By: #### 5 0103 #### [facility] [employer] [facility]. [address] PRODUCT CODE 1 [id number] Normal [facility] Comment on above: Performed By: #### 5 0103 #### [facility] [employer] [address] PRODUCT STATUS 1 PT Normal [facility] Comment on above: Result Comment: Resu lt changed by IF on 11/17/2021 20:41. The previous value was XM. Result changed by IF on 11/18/2021 00:30. The previous value was IS. Performed By: #### 5 0103 #### [facility] [address] [place] [address], [facility] UNIT ABO 1 A Normal [facility] Comment on above: Performed By: #### 5 0103 #### [facility] [address] [place] [address], [facility] UNIT ID 1 [id number] Normal [facility] Comment on above: Performed By: #### 5 0103 #### [facility] [address] [place] [address], [facility] UNIT RH 1 Positive Normal [facility] Comment on above: Performed By: #### 5 0103 #### [facility] [address] [place] [address], [facility] TROPONIN-Ion 11-17-2021 Troponin I.cardiac [Mass/Vol] 1.79 ng/mL Critically high 0.00-0.04 [facility] Comment on above: Result Comment: M-TR OPONIN INITIAL CRITICAL HIGH; RESPUN AND RETESTED M-CRITICAL RESULT(S) REVIEWED, CALLED TO AND READ BACK BY Judy Pablo RN at 2130. REFERENCE RANGES: 0.00 - 0.04 ng/ml NORMAL 0.05 - 0.50 ng/ml INDETERMINATE > 0.50 ng/ml CONSISTENT WITH AN M.I. Performed By: #### 1 0070, 29714, 19432 ####[facility] [place] [address], [facility] TYPE AND SCREENon 11-17-2021 ABO INTERPRETATION A Normal [facility] Comment on above: Performed By: #### 6 2586 ####[facility] [place] [address], [facility] RH INTERPRETATION Positive Normal [facility] Comment on above: Performed By: #### 6 2586 ####[facility] CBC W Auto Differential pane l (Bld)on 11-02-2021 Abs Baso 0.00 k/uL <0.11 k/uL [facility] Abs Ware 1.26 k/uL High <0.87 k/uL [facility] Absolute nRBC <0.01 <0.01 k/uL [facility] Anisocytosis Ql (Bld) Present [facility] Basophils/100 WBC (Bld) 0.0 % [facility] Differential cell count method Nom (Bld) Manual [facility] Eosinophils (Bld) [#/Vol] 0.00 10*3/uL <0.46 k/uL [facility] Eosinophils/100 WBC (Bld) 0.0 % [facility] Erythrocyte distribution width (RBC) [Ratio] 24.7 % High 11.5 - 15.0 % [facility] Hematocrit (Bld) [Volume fraction] 25.2 % Low 39.0 - 51.0 % [facility] Hemoglobin (Bld) [Mass/Vol] 7.9 g/dL Low 13.0 - 17.0 g/dL [facility] Lymphocytes (Bld) [#/Vol] 1.33 10*3/uL 1.00 - 4.00 k/uL [facility] Lymphocytes/100 WBC (Bld) 19.0 % [facility] MCH (RBC) [Entitic mass] 36.2 pg High 26.0 - 34.0 pg [facility] MCHC (RBC) [Mass/Vol] 31.3 g/dL 30.5 - 36.0 g/ dL [facility] MCV (RBC) [Entitic vol] 115.6 fL High 80.0 - 100.0 fL [facility] Monocytes/100 WBC (Bld) 18.0 % [facility] Neutrophils (Bld) [#/Vol] 4.42 10*3/uL 1.45 - 7.50 k/uL [facility] Neutrophils/100 WBC (Bld) 63.0 % [facility] Nucleated RBC/100 WBC (Bld) [Ratio] 0.0 /100 WBC [facility] Ovalocytes LM Ql (Bld) Few [facility] Platelet Estimate Adequate [facility] Platelet mean volume (Bld) [Entitic vol] 13.8 fL High 9.0 - 12.7 fL [facility] Platelets (Bld) [#/Vol] 226 10*3/uL 150 - 400 k/uL [facility] Polychromasia LM Ql (Bld) Slight [facility] RBC (Bld) [#/Vol] 2.18 10*6/uL Low 4.20 - 6.00 m/uL [facility] Red Cell Morph Reviewed [facility] WBC (Bld) [#/Vol] 7.02 10*3/uL 3.70 - 11.00 k/u L [facility] Comprehensive metabolic 2000 panelon 11-01-2021 Albumin [Mass/Vol] 4.2 g/dL 3.9 - 4.9 g/dL [facility] ALP [Catalytic activity/Vol] 51 U/L 38 - 113 U/L [facility] ALT [Catalytic activity/Vol] 22 U/L 10 - 54 U/L [facility] Anion gap [Moles/Vol] 13 mmol/L 9 - 18 mmol/L [facility] AST [Catalytic activity/Vol] 13 U/L Low 14 - 40 U/L [facility] Bilirubin [Mass/Vol] 0.5 mg/dL 0.2 - 1.3 mg/dL [facility] Calcium [Mass/Vol] 9.5 mg/dL 8.5 - 10.2 mg/dL [facility] Chloride [Moles/Vol] 104 mmol/L 97 - 105 mmol/L [facility] CO2 [Moles/Vol] 24 mmol/L 22 - 30 mmol/L [facility] Creatinine [Mass/Vol] 1.98 mg/dL High 0.73 - 1.22 mg /dL [facility] Estimated Glomerular Filtration Rate 33 mL/min/1.73m Low >=60 mL/min/1.73m [facility] Glucose [Mass/Vol] 154 mg/dL High 74 - 99 mg/dL [facility] Potassium [Moles/Vol] 3.6 mmol/L Low 3.7 - 5.1 mmol /L [facility] Protein [Mass/Vol] 6.3 g/dL 6.3 - 8.0 g/dL [facility] Sodium [Moles/Vol] 141 mmol/L 136 - 144 mmol/L [facility] Urea nitrogen [Mass/Vol] 41 mg/dL High 9 - 24 mg/dL [facility] LD LACTATE DEHYDROon 04-07-2 022 LDH [Catalytic activity/Vol] 263 U/L High 135 - 225 U/L [facility] Audiology Office/Clinic Note on 06-23-2018 Audiology Office/Clinic Note Patient seen for hearing aid evaluation, accompanied by his . Hearing test results were reviewed and appropriate hearing aid styles and levels of technology were discussed. Patient expressed interest in two Phonak Bolero B50 or 70-SP BTE hearing aids in [facility] with custom earmolds. Bilateral earmold impressions were [...] by Evette Stiles 06/23/18 13:47 EST Normal [facility] Audiology Office/Clinic Note on 06-11-2018 [...] by Evette Stiles 06/11/18 09:57 EST Normal [facility] Otolaryngology Office/Clinic Noteon 06-11-2018 Otolaryngology [...] Mylene Andrew MD 06/11/18 11:02 EST Normal [facility] Otolaryngology Consultationo n 05-28-2018 Otolaryngology [...] Mylene Andrew MD 05/28/18 11:46 EDT Normal [facility] Vital Signs Date Time Vital Sign Value Performing Clinician Facility 01-20-2024 14:03040 Body height 167.64 cm [facility] 01-20-2024 14:030400 Body mass index (BMI) [Ratio] 30.9 kg/m2 [facility] 01-20-2024 14:03040 Body weight 87.08 kg [facility] 01-20-2024 14:030400 Diastolic blood pressure 58 mm[Hg] [facility] 01-20-2024 14:030400 Heart rate 65 /min [facility] 01-20-2024 14:03-0400 SaO2% (BldA) [Mass fraction] 100 % [facility] 01-20-2024 14:03-0400 Systolic blood pressure 104 mm[Hg] [facility] 11-26-2023 09:49-0400 Body height 167.6 cm Rowdy Yvette DO Work Phone: [facility] 11-26-2023 09:49-0400 Body mass index (BMI) [Ratio] 36.08 kg/m2 Rowdy Yvette DO Work Phone: [facility] 11-26-2023 09:49-0400 Body temperature 98.29 [degF] Rowdy Yvette DO Work Phone: [facility] 11-26-2023 09:49-0400 Body weight 101.4 kg Rowdy Yvette DO Work Phone: [facility] 11-26-2023 09:49-0400 Diastolic blood pressure 58 mm[Hg] Rowdy Yvette DO Work Phone: [facility] 11-26-2023 09:49-0400 Heart rate 64 /min Rowdy Yvette DO Work Phone: [facility] 11-26-2023 09:49-0400 Systolic blood pressure 102 mm[Hg] Rowdy Yvette DO Work Phone: [facility] 11-11-2023 14:44-0400 Body height 167.64 cm MD Jacquelin Barton Work Phone: [facility] 11-11-2023 14:44-0400 Body mass index (BMI) [Ratio] 35.8 kg/m2 MD Jacquelin Barton Work Phone: [facility] 11-11-2023 14:44-0400 Body temperature 96.5 [degF] MD Jacquelin Barton Work Phone: [facility] 11-11-2023 14:44-0400 Body weight 100.75 kg MD Jacquelin Barton Work Phone: [facility] 11-11-2023 14:44-0400 Diastolic blood pressure 60 mm[Hg] MD Jacquelin Barton Work Phone: [facility] 11-11-2023 14:44-0400 Heart rate 72 /min MD Jacquelin Barton Work Phone: [facility] 11-11-2023 14:44-0400 Inhaled oxygen flow rate 3 L/min MD Jacquelin Barton Work Phone: [facility] 11-11-2023 14:44-0400 Respiratory rate 18 /min MD Jacquelin Barton Work Phone: [facility] 11-11-2023 14:44-0400 SaO2% (BldA) [Mass fraction] 92 % MD Jacquelin Barton Work Phone: [facility] 11-11-2023 14:44-0400 Systolic blood pressure 100 mm[Hg] MD Jacquelin Barton Work Phone: [facility] 10-27-2023 15:06-0400 Body temperature 98.2 [degF] Curt Farah MD Work Phone: [facility] 10-17-2023 18:08-0400 Diastolic blood pressure 55 mm[Hg] MD Jacquelin Barton Work Phone: [facility] 10-17-2023 18:08-0400 Heart rate 80 /min MD Jacquelin Barton Work Phone: [facility] 10-17-2023 18:08-0400 Inhaled oxygen flow rate 3 L/min MD Jacquelin Barton Work Phone: [facility] 10-17-2023 18:08-0400 Respiratory rate 18 /min MD Jacquelni Barton Work Phone: [facility] 10-17-2023 18:08-0400 SaO2% (BldA) [Mass fraction] 99 % MD Jacquelin Barton Work Phone: [facility] 10-17-2023 18:08-0400 Systolic blood pressure 127 mm[Hg] MD Jacquelin Barton Work Phone: [facility] 10-17-2023 15:30-0400 Body height 167.64 cm MD Jacquelin Barton Work Phone: [facility] 10-17-2023 15:30-0400 Body weight 92.07 kg MD Jacquelin Barton Work Phone: [facility] 10-17-2023 15:26-0400 Body temperature 97.5 [degF] MD Jacquelin Barton Work Phone: [facility] 03-11-2023 13:00-0400 Blood Pressure Location [facility] 03-11-2023 13:00-0400 Body temperature 97.7 [degF] [facility] 03-11-2023 13:00-0400 Diastolic blood pressure 64 mm[Hg] [facility] 03-11-2023 13:00-0400 Heart rate 59 /min [facility] 03-11-2023 13:00-0400 Mean blood pressure 86 mm[Hg] [facility] 03-11-2023 13:00-0400 Respiratory rate 18 /min [facility] 03-11-2023 13:00-0400 SaO2% (BldA) [Mass fraction] 100 % [facility] 03-11-2023 13:00-0400 Systolic blood pressure 129 mm[Hg] [facility] 11-20-2022 15:16-0400 Body height 166.1 cm Asher Hummel MD Work Phone: [facility] 11-20-2022 15:16-0400 Body temperature 97.5 [degF] Asher Hummel MD Work Phone: [facility] 11-20-2022 15:16-0400 Body weight 95.44 kg Asher Hummel MD Work Phone: [facility] 11-20-2022 15:16-0400 Diastolic blood pressure 58 mm[Hg] Asher Hummel MD Work Phone: [facility] 11-20-2022 15:16-0400 Heart rate 59 /min Asher Hummel MD Work Phone: [facility] 11-20-2022 15:16-0400 Respiratory rate 18 /min Asher Hummel MD Work Phone: [facility] 11-20-2022 15:16-0400 SaO2% (BldA) [Mass fraction] 93 % Asher Hummel MD Work Phone: [facility] 11-20-2022 15:16-0400 Systolic blood pressure 98 mm[Hg] Asher Hummel MD Work Phone: [facility] 10-15-2022 14:14-0400 Body temperature 98.6 [degF] Kim López MD Work Phone: [facility] 10-15-2022 14:14-0400 Body weight 103.42 kg Kim López MD Work Phone: [facility] 10-15-2022 14:14-0400 Diastolic blood pressure 69 mm[Hg] Kim López MD Work Phone: [facility] 10-15-2022 14:14-0400 Heart rate 56 /min Kim López MD Work Phone: [facility] 10-15-2022 14:14-0400 Respiratory rate 19 /min Kim López MD Work Phone: [facility] 10-15-2022 14:14-0400 SaO2% (BldA) [Mass fraction] 100 % Kmi López MD Work Phone: [facility] 10-15-2022 14:14-0400 Systolic blood pressure 129 mm[Hg] Kim López MD Work Phone: [facility] 09-18-2022 13:30-0500 Diastolic blood pressure 43 mm[Hg] Asher Hummel MD Work Phone: [facility] 09-18-2022 13:30-0500 Systolic blood pressure 126 mm[Hg] Asher Hummel MD Work Phone: [facility] 09-18-2022 13:28-0500 Body height 166.1 cm Asher Hummel MD Work Phone: [facility] 09-18-2022 13:28-0500 Body temperature 97.7 [degF] Asher Hummel MD Work Phone: [facility] 09-18-2022 13:28-0500 Body weight 100.25 kg Asher Hummel MD Work Phone: [facility] 09-18-2022 13:28-0500 Heart rate 71 /min Asher Hummel MD Work Phone: [facility] 09-18-2022 13:28-0500 Respiratory rate 18 /min Asher Hummel MD Work Phone: [facility] 09-18-2022 13:28-0500 SaO2% (BldA) [Mass fraction] 92 % Asher Hummel MD Work Phone: [facility] 08-28-2022 15:07-0500 Body height 166.1 cm Asher Hummel MD Work Phone: [facility] 08-28-2022 15:07-0500 Body temperature 97.3 [degF] Asher Hummel MD Work Phone: [facility] 08-28-2022 15:07-0500 Body weight 103.51 kg Asher Hummel MD Work Phone: [facility] 08-28-2022 15:07-0500 Diastolic blood pressure 62 mm[Hg] Asher Hummel MD Work Phone: [facility] 08-28-2022 15:07-0500 Heart rate 77 /min Asher Hummel MD Work Phone: [facility] 08-28-2022 15:07-0500 Respiratory rate 16 /min Asher Hummel MD Work Phone: [facility] 08-28-2022 15:07-0500 SaO2% (BldA) [Mass fraction] 92 % Asher Hummel MD Work Phone: [facility] 08-28-2022 15:07-0500 Systolic blood pressure 110 mm[Hg] Asher Hummel MD Work Phone: [facility] 08-21-2022 13:30-0500 Body height 166.1 cm Wilfred Martinez APRN.LINUX SUPPORT ENGINEER Work Phone: [facility] 08-21-2022 13:30-0500 Body temperature 97.59 [degF] Wilfred Martinez APRN.[employer] SUPPORT ENGINEER Work Phone: [facility] 08-21-2022 13:30-0500 Body weight 103.51 kg Wilfred Martinez APRN.[employer] SUPPORT ENGINEER Work Phone: [facility] 08-21-2022 13:30-0500 Diastolic blood pressure 37 mm[Hg] Wilfred Martinez APRN.[employer] SUPPORT ENGINEER Work Phone: [facility] 08-21-2022 13:30-0500 Heart rate 74 /min Wilfred Martinez APRN.[employer] SUPPORT ENGINEER Work Phone: [facility] 08-21-2022 13:30-0500 Respiratory rate 18 /min Wilfred Martinez APRN.[employer] SUPPORT ENGINEER Work Phone: [facility] 08-21-2022 13:30-0500 SaO2% (BldA) [Mass fraction] 92 % Wilfred Martinez APRN.[employer] SUPPORT ENGINEER Work Phone: [facility] 08-21-2022 13:30-0500 Systolic blood pressure 84 mm[Hg] Wilfred Martinez APRN.LIN[employer] SUPPORT ENGINEER Work Phone: [facility] 08-14-2022 14:28-0500 Diastolic blood pressure 64 mm[Hg] Chair Roman Work Phone: [facility] 08-14-2022 14:28-0500 SaO2% (BldA) [Mass fraction] 97 % Chair Roman Work Phone: [facility] 08-14-2022 14:28-0500 Systolic blood pressure 102 mm[Hg] Chair Roman Work Phone: [facility] 08-14-2022 13:55-0500 Body height 166.1 cm Wilfred Martinez APRN.[employer] SUPPORT ENGINEER Work Phone: [facility] 08-14-2022 13:55-0500 Body temperature 97.3 [degF] Wilfred Martinez APRN.LIN[employer] SUPPORT ENGINEER Work Phone: [facility] 08-14-2022 13:55-0500 Body weight 103.96 kg Wilfred Martniez APRN.LIN[employer] SUPPORT ENGINEER Work Phone: [facility] 08-14-2022 13:55-0500 Diastolic blood pressure 41 mm[Hg] Wilfred Martinez APRN.LIN[employer] SUPPORT ENGINEER Work Phone: [facility] 08-14-2022 13:55-0500 Heart rate 71 /min Wilfred Martinez APRN.[employer] SUPPORT ENGINEER Work Phone: [facility] 08-14-2022 13:55-0500 Respiratory rate 16 /min Wilfred Martinez APRN.LIN[employer] SUPPORT ENGINEER Work Phone: [facility] 08-14-2022 13:55-0500 SaO2% (BldA) [Mass fraction] 90 % Wilfred Martinez APRN.LINUX SUPPORT ENGINEER Work Phone: [facility] 08-14-2022 13:55-0500 Systolic blood pressure 93 mm[Hg] Wilfred Martinez APRN.CNP Work Phone: [facility] 08-07-2022 15:19-0500 Diastolic blood pressure 57 mm[Hg] Asher Hummel MD Work Phone: [facility] 08-07-2022 15:19-0500 Systolic blood pressure 112 mm[Hg] Asher Hummel MD Work Phone: [facility] 08-07-2022 15:14-0500 Body height 166.1 cm Asher Hummel MD Work Phone: [facility] 08-07-2022 15:14-0500 Body temperature 97.81 [degF] Asher Hummel MD Work Phone: [facility] 08-07-2022 15:14-0500 Body weight 102.97 kg Asher Hummel MD Work Phone: [facility] 08-07-2022 15:14-0500 Heart rate 71 /min Asher Hummel MD Work Phone: [facility] 08-07-2022 15:14-0500 Respiratory rate 16 /min Asher Hummel MD Work Phone: [facility] 08-07-2022 15:14-0500 SaO2% (BldA) [Mass fraction] 94 % Asher Hummel MD Work Phone: [facility] 07-30-2022 15:00-0500 Body height 166.1 cm Radha Sandoval PA-C Work Phone: [facility] 07-30-2022 15:00-0500 Body temperature 97.9 [degF] Radha Sandoval PA-C Work Phone: [facility] 07-30-2022 15:00-0500 Body weight 104.69 kg Radha Sandoval PA-C Work Phone: [facility] 07-30-2022 15:00-0500 Diastolic blood pressure 52 mm[Hg] Radha Lori PA-C Work Phone: [facility] 07-30-2022 15:00-0500 Heart rate 83 /min Radha Lori PA-C Work Phone: [facility] 07-30-2022 15:00-0500 Respiratory rate 18 /min Radha Lori PA-C Work Phone: [facility] 07-30-2022 15:00-0500 SaO2% (BldA) [Mass fraction] 97 % Radha Lori PA-C Work Phone: [facility] 07-30-2022 15:00-0500 Systolic blood pressure 97 mm[Hg] Radha Lori PA-C Work Phone: [facility] 07-23-2022 14:23-0500 Body height 166.1 cm Asher Hummel MD Work Phone: [facility] 07-23-2022 14:23-0500 Body temperature 97.81 [degF] Asher Hummel MD Work Phone: [facility] 07-23-2022 14:23-0500 Body weight 105.69 kg Asher Hummel MD Work Phone: [facility] 07-23-2022 14:23-0500 Diastolic blood pressure 58 mm[Hg] Asher Hummel MD Work Phone: [facility] 07-23-2022 14:23-0500 Heart rate 65 /min Asher Hummel MD Work Phone: [facility] 07-23-2022 14:23-0500 Respiratory rate 16 /min Asher Hummel MD Work Phone: [facility] 07-23-2022 14:23-0500 SaO2% (BldA) [Mass fraction] 95 % Asher Hummel MD Work Phone: [facility] 07-23-2022 14:23-0500 Systolic blood pressure 103 mm[Hg] Asher Hummel MD Work Phone: [facility] 07-16-2022 13:59-0500 Body temperature 98.01 [degF] Kim López MD Work Phone: [facility] 07-16-2022 13:59-0500 Body weight 106.87 kg Kim López MD Work Phone: [facility] 07-16-2022 13:59-0500 Diastolic blood pressure 59 mm[Hg] Kim López MD Work Phone: [facility] 07-16-2022 13:59-0500 Heart rate 50 /min Kim López MD Work Phone: [facility] 07-16-2022 13:59-0500 Respiratory rate 18 /min Kim López MD Work Phone: [facility] 07-16-2022 13:59-0500 SaO2% (BldA) [Mass fraction] 96 % Kim López MD Work Phone: [facility] 07-16-2022 13:59-0500 Systolic blood pressure 107 mm[Hg] Kim López MD Work Phone: [facility] 07-15-2022 15:02-0500 Body height 166.1 cm Chair [place] Work Phone: [facility] 07-15-2022 15:02-0500 Body weight 106.2 kg Chair [place] Work Phone: [facility] 07-15-2022 14:22-0500 Body height 166.1 cm Asher Hummel MD Work Phone: [facility] 07-15-2022 14:22-0500 Body temperature 97.59 [degF] Asher Hummel MD Work Phone: [facility] 07-15-2022 14:22-0500 Body weight 106.23 kg Asher Hummel MD Work Phone: [facility] 07-15-2022 14:22-0500 Diastolic blood pressure 43 mm[Hg] Asher Hummel MD Work Phone: [facility] 07-15-2022 14:22-0500 Heart rate 56 /min Asher Hummel MD Work Phone: [facility] 07-15-2022 14:22-0500 Respiratory rate 16 /min Asher Hummel MD Work Phone: [facility] 07-15-2022 14:22-0500 SaO2% (BldA) [Mass fraction] 93 % Asher Hummel MD Work Phone: [facility] 07-15-2022 14:22-0500 Systolic blood pressure 103 mm[Hg] Ahser Hummel MD Work Phone: [facility] 07-09-2022 14:11-0500 Body temperature 97.2 [degF] Chair Roman Work Phone: [facility] 07-09-2022 14:11-0500 Diastolic blood pressure 71 mm[Hg] Chair [place] Work Phone: [facility] 07-09-2022 14:11-0500 Heart rate 68 /min Chair [place] Work Phone: [facility] 07-09-2022 14:11-0500 Respiratory rate 16 /min Chair [place] Work Phone: [facility] 07-09-2022 14:11-0500 Systolic blood pressure 107 mm[Hg] Chair Roman Work Phone: [facility] 07-08-2022 14:22-0500 Body height 166.1 cm Radha Harriser PA-C Work Phone: [facility] 07-08-2022 14:22-0500 Body temperature 97.59 [degF] Radha Harriser PA-C Work Phone: [facility] 07-08-2022 14:22-0500 Body weight 106.41 kg Radha Lori PA-C Work Phone: [facility] 07-08-2022 14:22-0500 Diastolic blood pressure 42 mm[Hg] Radha Lori PA-C Work Phone: [facility] 07-08-2022 14:22-0500 Heart rate 59 /min Radha Lori PA-C Work Phone: [facility] 07-08-2022 14:22-0500 Respiratory rate 18 /min Radha Lori PA-C Work Phone: [facility] 07-08-2022 14:22-0500 SaO2% (BldA) [Mass fraction] 97 % Radha Lori PA-C Work Phone: [facility] 07-08-2022 14:22-0500 Systolic blood pressure 99 mm[Hg] Radha Lori PA-C Work Phone: [facility] 07-02-2022 14:23-0500 Body temperature 97.9 [degF] Chair Roman Work Phone: [facility] 07-02-2022 14:23-0500 Diastolic blood pressure 62 mm[Hg] Chair [place] Work Phone: [facility] 07-02-2022 14:23-0500 Heart rate 50 /min Chair Roman Work Phone: [facility] 07-02-2022 14:23-0500 Respiratory rate 18 /min Chair [place] Work Phone: [facility] 07-02-2022 14:23-0500 SaO2% (BldA) [Mass fraction] 100 % Chair [place] Work Phone: [facility] 07-02-2022 14:23-0500 Systolic blood pressure 121 mm[Hg] Chair [place] Work Phone: [facility] 07-01-2022 14:15-0500 Body height 166.1 cm Asher Hummel MD Work Phone: [facility] 07-01-2022 14:15-0500 Body temperature 97.59 [degF] Asher Hummel MD Work Phone: [facility] 07-01-2022 14:15-0500 Body weight 105.05 kg Asher Hummel MD Work Phone: [facility] 07-01-2022 14:15-0500 Diastolic blood pressure 54 mm[Hg] Asher Hummel MD Work Phone: [facility] 07-01-2022 14:15-0500 Heart rate 77 /min Asher Hummel MD Work Phone: [facility] 07-01-2022 14:15-0500 Respiratory rate 16 /min Asher Hummel MD Work Phone: [facility] 07-01-2022 14:15-0500 SaO2% (BldA) [Mass fraction] 95 % Asher Hummel MD Work Phone: [facility] 07-01-2022 14:15-0500 Systolic blood pressure 104 mm[Hg] Asher Hummel MD Work Phone: [facility] 06-25-2022 13:35-0500 Body temperature 97.9 [degF] Chair Roman Work Phone: [facility] 06-25-2022 13:35-0500 Diastolic blood pressure 51 mm[Hg] Chair [place] Work Phone: [facility] 06-25-2022 13:35-0500 Heart rate 61 /min Chair Roman Work Phone: [facility] 06-25-2022 13:35-0500 Respiratory rate 18 /min Chair [place] Work Phone: [facility] 06-25-2022 13:35-0500 SaO2% (BldA) [Mass fraction] 99 % Chair [place] Work Phone: [facility] 06-25-2022 13:35-0500 Systolic blood pressure 113 mm[Hg] Chair [place] Work Phone: [facility] 06-24-2022 13:19-0500 Body height 166.1 cm Wilfred Martinez APRN.LINUX SUPPORT ENGINEER Work Phone: [facility] 06-24-2022 13:19-0500 Body temperature 97.39 [degF] Wilfred Martinez APRN.LINUX SUPPORT ENGINEER Work Phone: [facility] 06-24-2022 13:19-0500 Body weight 104.6 kg Wilfred Martinez APRN.LINUX SUPPORT ENGINEER Work Phone: [facility] 06-24-2022 13:19-0500 Diastolic blood pressure 52 mm[Hg] Wilfred Martinez APRN.LINUX SUPPORT ENGINEER Work Phone: [facility] 06-24-2022 13:19-0500 Heart rate 74 /min Wilfred Martinez APRN.LINUX SUPPORT ENGINEER Work Phone: [facility] 06-24-2022 13:19-0500 Respiratory rate 16 /min Wilfred Martinez APRN.LINUX SUPPORT ENGINEER Work Phone: [facility] 06-24-2022 13:19-0500 SaO2% (BldA) [Mass fraction] 95 % Wilfred Martinez APRN.LINUX SUPPORT ENGINEER Work Phone: [facility] 06-24-2022 13:19-0500 Systolic blood pressure 97 mm[Hg] Wilfred Martinez APRN.LINUX SUPPORT ENGINEER Work Phone: [facility] 06-18-2022 13:26-0500 Body temperature 97.7 [degF] Chair [place] Work Phone: [facility] 06-18-2022 13:26-0500 Diastolic blood pressure 74 mm[Hg] Chair [place] Work Phone: [facility] 06-18-2022 13:26-0500 Heart rate 65 /min Chair Roman Work Phone: [facility] 06-18-2022 13:26-0500 Respiratory rate 16 /min Chair Roman Work Phone: [facility] 06-18-2022 13:26-0500 SaO2% (BldA) [Mass fraction] 100 % Chair [place] Work Phone: [facility] 06-18-2022 13:26-0500 Systolic blood pressure 103 mm[Hg] Chair Roman Work Phone: [facility] 06-17-2022 10:04-0500 Body height 166.1 cm Asher Hummel MD Work Phone: [facility] 06-17-2022 10:04-0500 Body temperature 97.11 [degF] Asher Hummel MD Work Phone: [facility] 06-17-2022 10:04-0500 Body weight 105.23 kg Asher Hummel MD Work Phone: [facility] 06-17-2022 10:04-0500 Diastolic blood pressure 57 mm[Hg] Asher Hummel MD Work Phone: [facility] 06-17-2022 10:04-0500 Heart rate 67 /min Asher Hummel MD Work Phone: [facility] 06-17-2022 10:04-0500 Respiratory rate 18 /min Asher Hummel MD Work Phone: [facility] 06-17-2022 10:04-0500 SaO2% (BldA) [Mass fraction] 96 % Asher Hummel MD Work Phone: [facility] 06-17-2022 10:04-0500 Systolic blood pressure 108 mm[Hg] Asher Hummel MD Work Phone: [facility] 06-11-2022 14:00-0500 Body temperature 98.1 [degF] Chair [place] Work Phone: [facility] 06-11-2022 14:00-0500 Diastolic blood pressure 84 mm[Hg] Chair [place] Work Phone: [facility] 06-11-2022 14:00-0500 Heart rate 74 /min Chair [place] Work Phone: [facility] 06-11-2022 14:00-0500 Respiratory rate 18 /min Chair [place] Work Phone: [facility] 06-11-2022 14:00-0500 SaO2% (BldA) [Mass fraction] 95 % Chair [place] Work Phone: [facility] 06-11-2022 14:00-0500 Systolic blood pressure 121 mm[Hg] Chair Roman Work Phone: [facility] 06-10-2022 14:17-0500 Body height 166.1 cm Radha Lori PA-C Work Phone: [facility] 06-10-2022 14:17-0500 Body temperature 97.3 [degF] Radha Lori PA-C Work Phone: [facility] 06-10-2022 14:17-0500 Body weight 105.51 kg Radha Lori PA-C Work Phone: [facility] 06-10-2022 14:17-0500 Diastolic blood pressure 49 mm[Hg] Radha Lori PA-C Work Phone: [facility] 06-10-2022 14:17-0500 Heart rate 78 /min Radha Lori PA-C Work Phone: [facility] 06-10-2022 14:17-0500 Respiratory rate 20 /min Radha Lori PA-C Work Phone: [facility] 06-10-2022 14:17-0500 SaO2% (BldA) [Mass fraction] 94 % Radha Lori PA-C Work Phone: [facility] 06-10-2022 14:17-0500 Systolic blood pressure 111 mm[Hg] Radha Lori PA-C Work Phone: [facility] 06-03-2022 13:15-0500 Body height 166.1 cm Asher Hummel MD Work Phone: [facility] 06-03-2022 13:15-0500 Body temperature 97.2 [degF] Asher Hummel MD Work Phone: [facility] 06-03-2022 13:15-0500 Body weight 108.68 kg Asher Hummel MD Work Phone: [facility] 06-03-2022 13:15-0500 Diastolic blood pressure 59 mm[Hg] Asher Hummel MD Work Phone: [facility] 06-03-2022 13:15-0500 Heart rate 73 /min Asher Hummel MD Work Phone: [facility] 06-03-2022 13:15-0500 Respiratory rate 20 /min Asher Hummel MD Work Phone: [facility] 06-03-2022 13:15-0500 SaO2% (BldA) [Mass fraction] 95 % Asher Hummel MD Work Phone: [facility] 06-03-2022 13:15-0500 Systolic blood pressure 97 mm[Hg] Ashre Hummel MD Work Phone: [facility] 05-28-2022 13:20-0400 Body temperature 97.39 [degF] Chair Roman Work Phone: [facility] 05-28-2022 13:20-0400 Diastolic blood pressure 56 mm[Hg] Chair [place] Work Phone: [facility] 05-28-2022 13:20-0400 Heart rate 60 /min Chair Roman Work Phone: [facility] 05-28-2022 13:20-0400 Respiratory rate 18 /min Chair Roman Work Phone: [facility] 05-28-2022 13:20-0400 SaO2% (BldA) [Mass fraction] 98 % Chair [place] Work Phone: [facility] 05-28-2022 13:20-0400 Systolic blood pressure 120 mm[Hg] Chair [place] Work Phone: [facility] 05-27-2022 13:34-0400 Body temperature 97.3 [degF] Chair Roman Work Phone: [facility] 05-27-2022 13:34-0400 Diastolic blood pressure 55 mm[Hg] Chair Roman Work Phone: [facility] 05-27-2022 13:34-0400 Heart rate 62 /min Chair [place] Work Phone: [facility] 05-27-2022 13:34-0400 Respiratory rate 18 /min Chair [place] Work Phone: [facility] 05-27-2022 13:34-0400 SaO2% (BldA) [Mass fraction] 98 % Chair [place] Work Phone: [facility] 05-27-2022 13:34-0400 Systolic blood pressure 120 mm[Hg] Chair [place] Work Phone: [facility] 05-21-2022 10:25-0400 Body temperature 98.01 [degF] Chair [place] Work Phone: [facility] 05-21-2022 10:25-0400 Diastolic blood pressure 57 mm[Hg] Chair [place] Work Phone: [facility] 05-21-2022 10:25-0400 Heart rate 53 /min Chair Roman Work Phone: [facility] 05-21-2022 10:25-0400 Respiratory rate 20 /min Chair [place] Work Phone: [facility] 05-21-2022 10:25-0400 SaO2% (BldA) [Mass fraction] 99 % Chair Roman Work Phone: [facility] 05-21-2022 10:25-0400 Systolic blood pressure 115 mm[Hg] Chair [place] Work Phone: [facility] 05-20-2022 13:54-0400 Body height 166.1 cm Asher Hummel MD Work Phone: [facility] 05-20-2022 13:54-0400 Body temperature 97.5 [degF] Asher Hummel MD Work Phone: [facility] 05-20-2022 13:54-0400 Body weight 108.14 kg Asher Hummel MD Work Phone: [facility] 05-20-2022 13:54-0400 Diastolic blood pressure 47 mm[Hg] Asher Hummel MD Work Phone: [facility] 05-20-2022 13:54-0400 Heart rate 74 /min Asher Hummel MD Work Phone: [facility] 05-20-2022 13:54-0400 Respiratory rate 18 /min Asher Hummel MD Work Phone: [facility] 05-20-2022 13:54-0400 SaO2% (BldA) [Mass fraction] 94 % Asher Hummel MD Work Phone: [facility] 05-20-2022 13:54-0400 Systolic blood pressure 121 mm[Hg] Asher Hummel MD Work Phone: [facility] 05-13-2022 14:48-0400 Body temperature 97.39 [degF] [facility] [place] Work Phone: [facility] 05-13-2022 14:48-0400 Diastolic blood pressure 61 mm[Hg] [facility] [place] Work Phone: [facility] 05-13-2022 14:48-0400 Heart rate 89 /min [facility] [place] Work Phone: [facility] 05-13-2022 14:48-0400 Respiratory rate 18 /min [facility] [place] Work Phone: [facility] 05-13-2022 14:48-0400 SaO2% (BldA) [Mass fraction] 96 % [facility] [place] Work Phone: [facility] 05-13-2022 14:48-0400 Systolic blood pressure 107 mm[Hg] [facility] [place] Work Phone: [facility] 05-06-2022 16:19-0400 Body height 167.1 cm Asher Hummel MD Work Phone: [facility] 05-06-2022 16:19-0400 Body temperature 97.5 [degF] Asher Hummel MD Work Phone: [facility] 05-06-2022 16:19-0400 Body weight 111.77 kg Asher Hummel MD Work Phone: [facility] 05-06-2022 16:19-0400 Diastolic blood pressure 83 mm[Hg] Asher Hummel MD Work Phone: [facility] 05-06-2022 16:19-0400 Heart rate 65 /min Asher Hummel MD Work Phone: [facility] 05-06-2022 16:19-0400 Respiratory rate 16 /min Asher Hummel MD Work Phone: [facility] 05-06-2022 16:19-0400 SaO2% (BldA) [Mass fraction] 94 % Asher Hummel MD Work Phone: [facility] 05-06-2022 16:19-0400 Systolic blood pressure 140 mm[Hg] Asher Hummel MD Work Phone: [facility] 04-29-2022 12:49-0400 Body height 167.1 cm Asher Hummel MD Work Phone: [facility] 04-29-2022 12:49-0400 Body temperature 97.81 [degF] Asher Hummel MD Work Phone: [facility] 04-29-2022 12:49-0400 Body weight 108.95 kg Asher Hummel MD Work Phone: [facility] 04-29-2022 12:49-0400 Diastolic blood pressure 64 mm[Hg] Asher Hummel MD Work Phone: [facility] 04-29-2022 12:49-0400 Heart rate 55 /min Asher Hummel MD Work Phone: [facility] 04-29-2022 12:49-0400 Respiratory rate 20 /min Asher Hummel MD Work Phone: [facility] 04-29-2022 12:49-0400 SaO2% (BldA) [Mass fraction] 92 % Asher Hummel MD Work Phone: [facility] 04-29-2022 12:49-0400 Systolic blood pressure 119 mm[Hg] Asher Hummel MD Work Phone: [facility] 04-25-2022 07:52-0400 Body height 167.1 cm Asher Hummel MD Work Phone: [facility] 04-25-2022 07:52-0400 Body temperature 97.2 [degF] Asher Hummel MD Work Phone: [facility] 04-25-2022 07:52-0400 Body weight 109.59 kg Asher Hummel MD Work Phone: [facility] 04-25-2022 07:52-0400 Diastolic blood pressure 59 mm[Hg] Asher Hummel MD Work Phone: [facility] 04-25-2022 07:52-0400 Heart rate 54 /min Asher Hummel MD Work Phone: [facility] 04-25-2022 07:52-0400 Respiratory rate 18 /min Asher Hummel MD Work Phone: [facility] 04-25-2022 07:52-0400 SaO2% (BldA) [Mass fraction] 94 % Asher Hummel MD Work Phone: [facility] 04-25-2022 07:52-0400 Systolic blood pressure 131 mm[Hg] Asher Hummel MD Work Phone: [facility] 04-18-2022 13:54-0400 Body height 167.1 cm Kim López MD Work Phone: [facility] 04-18-2022 13:54-0400 Body temperature 98.2 [degF] Kim López MD Work Phone: [facility] 04-18-2022 13:54-0400 Body weight 109.63 kg Kim López MD Work Phone: [facility] 04-18-2022 13:54-0400 Diastolic blood pressure 50 mm[Hg] Kim López MD Work Phone: [facility] 04-18-2022 13:54-0400 Heart rate 63 /min Kim López MD Work Phone: [facility] 04-18-2022 13:54-0400 Respiratory rate 22 /min Kim López MD Work Phone: [facility] 04-18-2022 13:54-0400 SaO2% (BldA) [Mass fraction] 98 % Kim López MD Work Phone: [facility] 04-18-2022 13:54-0400 Systolic blood pressure 135 mm[Hg] Kim López MD Work Phone: [facility] 04-08-2022 14:25-0400 Body height 165.2 cm Asher Hummel MD Work Phone: [facility] 04-08-2022 14:25-0400 Body temperature 97.3 [degF] Asher Hummel MD Work Phone: [facility] 04-08-2022 14:25-0400 Body weight 111.4 kg Asher Hummel MD Work Phone: [facility] 04-08-2022 14:25-0400 Diastolic blood pressure 62 mm[Hg] Asher Hummel MD Work Phone: [facility] 04-08-2022 14:25-0400 Heart rate 65 /min Asher Hummel MD Work Phone: [facility] 04-08-2022 14:25-0400 Respiratory rate 16 /min Asher Hummel MD Work Phone: [facility] 04-08-2022 14:25-0400 SaO2% (BldA) [Mass fraction] 94 % Asher Hummel MD Work Phone: [facility] 04-08-2022 14:25-0400 Systolic blood pressure 99 mm[Hg] Asher Hummel MD Work Phone: [facility] 03-25-2022 14:20-0400 Body temperature 98.1 [degF] [facility] Work Phone: [facility] 03-25-2022 14:20-0400 Diastolic blood pressure 44 mm[Hg] [facility] Work Phone: [facility] 03-25-2022 14:20-0400 Heart rate 66 /min [facility] Work Phone: [facility] 03-25-2022 14:20-0400 Respiratory rate 18 /min [facility] [place] Work Phone: [facility] 03-25-2022 14:20-0400 SaO2% (BldA) [Mass fraction] 96 % [facility] [place] Work Phone: [facility] 03-25-2022 14:20-0400 Systolic blood pressure 109 mm[Hg] [facility] [place] Work Phone: [facility] 03-15-2022 13:58-0400 Heart rate 58 /min Chair [place] Work Phone: [facility] 03-15-2022 13:21-0400 Body temperature 97.81 [degF] Chair Roman Work Phone: [facility] 03-15-2022 13:21-0400 Diastolic blood pressure 49 mm[Hg] Chair [place] Work Phone: [facility] 03-15-2022 13:21-0400 Respiratory rate 18 /min Chair [place] Work Phone: [facility] 03-15-2022 13:21-0400 SaO2% (BldA) [Mass fraction] 97 % Chair [place] Work Phone: [facility] 03-15-2022 13:21-0400 Systolic blood pressure 111 mm[Hg] Chair [place] Work Phone: [facility] 03-14-2022 14:46-0400 Body temperature 97.81 [degF] Chair [place] Work Phone: [facility] 03-14-2022 14:46-0400 Diastolic blood pressure 63 mm[Hg] Chair [place] Work Phone: [facility] 03-14-2022 14:46-0400 Heart rate 64 /min Chair Roman Work Phone: [facility] 03-14-2022 14:46-0400 Respiratory rate 18 /min Chair [place] Work Phone: [facility] 03-14-2022 14:46-0400 SaO2% (BldA) [Mass fraction] 96 % Chair Roman Work Phone: [facility] 03-14-2022 14:46-0400 Systolic blood pressure 107 mm[Hg] Chair [place] Work Phone: [facility] 03-13-2022 14:41-0400 Body temperature 98.1 [degF] Chair Roman Work Phone: [facility] 03-13-2022 14:41-0400 Diastolic blood pressure 54 mm[Hg] Chair Roman Work Phone: [facility] 03-13-2022 14:41-0400 Heart rate 60 /min Chair Roman Work Phone: [facility] 03-13-2022 14:41-0400 Respiratory rate 20 /min Chair Roman Work Phone: [facility] 03-13-2022 14:41-0400 SaO2% (BldA) [Mass fraction] 97 % Chair Roman Work Phone: [facility] 03-13-2022 14:41-0400 Systolic blood pressure 116 mm[Hg] Chair Roman Work Phone: [facility] 03-11-2022 14:10-0400 Body height 165.2 cm Asher Hummel MD Work Phone: [facility] 03-11-2022 14:10-0400 Body temperature 97.3 [degF] Asher Hummel MD Work Phone: [facility] 03-11-2022 14:10-0400 Body weight 112.58 kg Asher Hummel MD Work Phone: [facility] 03-11-2022 14:10-0400 Diastolic blood pressure 38 mm[Hg] Asher Hummel MD Work Phone: [facility] 03-11-2022 14:10-0400 Heart rate 60 /min Asher Hummel MD Work Phone: [facility] 03-11-2022 14:10-0400 Respiratory rate 18 /min Asher Hummel MD Work Phone: [facility] 03-11-2022 14:10-0400 SaO2% (BldA) [Mass fraction] 98 % Asher Hummel MD Work Phone: [facility] 03-11-2022 14:10-0400 Systolic blood pressure 106 mm[Hg] Asher Hummel MD Work Phone: [facility] 02-25-2022 14:50-0400 Body temperature 98.1 [degF] [facility] [place] Work Phone: [facility] 02-25-2022 14:50-0400 Diastolic blood pressure 56 mm[Hg] [facility] [place] Work Phone: [facility] 02-25-2022 14:50-0400 Heart rate 59 /min [facility] [place] Work Phone: [facility] 02-25-2022 14:50-0400 Respiratory rate 18 /min [facility] Work Phone: [facility] 02-25-2022 14:50-0400 SaO2% (BldA) [Mass fraction] 100 % [facility] [place] Work Phone: [facility] 02-25-2022 14:50-0400 Systolic blood pressure 110 mm[Hg] [facility] [place] Work Phone: [facility] 02-15-2022 13:15-0400 Body temperature 97.7 [degF] Chair [place] Work Phone: [facility] 02-15-2022 13:15-0400 Diastolic blood pressure 63 mm[Hg] Chair [place] Work Phone: [facility] 02-15-2022 13:15-0400 Heart rate 74 /min Chair [place] Work Phone: [facility] 02-15-2022 13:15-0400 Respiratory rate 18 /min Chair [place] Work Phone: [facility] 02-15-2022 13:15-0400 SaO2% (BldA) [Mass fraction] 99 % Chair Roman Work Phone: [facility] 02-15-2022 13:15-0400 Systolic blood pressure 109 mm[Hg] Chair Roman Work Phone: [facility] 02-14-2022 13:35-0400 Body temperature 97.59 [degF] Chair [place] Work Phone: [facility] 02-14-2022 13:35-0400 Diastolic blood pressure 79 mm[Hg] Chair [place] Work Phone: [facility] 02-14-2022 13:35-0400 Heart rate 65 /min Chair [place] Work Phone: [facility] 02-14-2022 13:35-0400 Respiratory rate 18 /min Chair Roman Work Phone: [facility] 02-14-2022 13:35-0400 SaO2% (BldA) [Mass fraction] 99 % Chair [place] Work Phone: [facility] 02-14-2022 13:35-0400 Systolic blood pressure 118 mm[Hg] Chair [place] Work Phone: [facility] 02-13-2022 13:10-0400 Body temperature 98.2 [degF] Chair [place] Work Phone: [facility] 02-13-2022 13:10-0400 Diastolic blood pressure 45 mm[Hg] Chair [place] Work Phone: [facility] 02-13-2022 13:10-0400 Heart rate 53 /min Chair [place] Work Phone: [facility] 02-13-2022 13:10-0400 Respiratory rate 18 /min Chair [place] Work Phone: [facility] 02-13-2022 13:10-0400 SaO2% (BldA) [Mass fraction] 99 % Chair [place] Work Phone: [facility] 02-13-2022 13:10-0400 Systolic blood pressure 101 mm[Hg] Chair [place] Work Phone: [facility] 02-12-2022 13:10-0400 Diastolic blood pressure 52 mm[Hg] Chair [place] Work Phone: [facility] 02-12-2022 13:10-0400 Heart rate 68 /min Chair Roman Work Phone: [facility] 02-12-2022 13:10-0400 Respiratory rate 18 /min Chair [place] Work Phone: [facility] 02-12-2022 13:10-0400 SaO2% (BldA) [Mass fraction] 98 % Chair [place] Work Phone: [facility] 02-12-2022 13:10-0400 Systolic blood pressure 98 mm[Hg] Chair [place] Work Phone: [facility] 02-11-2022 14:35-0400 Body height 165.2 cm Radha Lori PA-C Work Phone: [facility] 02-11-2022 14:35-0400 Body temperature 97 [degF] Radha Lori PA-C Work Phone: [facility] 02-11-2022 14:35-0400 Body weight 110.95 kg Radha Lori PA-C Work Phone: [facility] 02-11-2022 14:35-0400 Diastolic blood pressure 42 mm[Hg] Radha Lori PA-C Work Phone: [facility] 02-11-2022 14:35-0400 Heart rate 81 /min Radha Lori PA-C Work Phone: [facility] 02-11-2022 14:35-0400 Respiratory rate 16 /min Radha Lori PA-C Work Phone: [facility] 02-11-2022 14:35-0400 SaO2% (BldA) [Mass fraction] 98 % Radha Lori PA-C Work Phone: [facility] 02-11-2022 14:35-0400 Systolic blood pressure 104 mm[Hg] Radha Lori PA-C Work Phone: [facility] 02-04-2022 13:25-0400 Body temperature 98.1 [degF] [facility] [place] Work Phone: [facility] 02-04-2022 13:25-0400 Diastolic blood pressure 63 mm[Hg] [facility] [place] Work Phone: [facility] 02-04-2022 13:25-0400 Heart rate 88 /min [facility] [place] Work Phone: [facility] 02-04-2022 13:25-0400 Respiratory rate 20 /min [facility] [place] Work Phone: [facility] 02-04-2022 13:25-0400 SaO2% (BldA) [Mass fraction] 99 % [facility] [place] Work Phone: [facility] 02-04-2022 13:25-0400 Systolic blood pressure 142 mm[Hg] [facility] [place] Work Phone: [facility] 01-30-2022 14:00-0400 Body temperature 98.2 [degF] [facility] [place] Work Phone: [facility] 01-30-2022 14:00-0400 Diastolic blood pressure 54 mm[Hg] [facility] [place] Work Phone: [facility] 01-30-2022 14:00-0400 Heart rate 70 /min [facility] [place] Work Phone: [facility] 01-30-2022 14:00-0400 Respiratory rate 18 /min [facility] [place] Work Phone: [facility] 01-30-2022 14:00-0400 SaO2% (BldA) [Mass fraction] 98 % [facility] [place] Work Phone: [facility] 01-30-2022 14:00-0400 Systolic blood pressure 107 mm[Hg] [facility] [place] Work Phone: [facility] 01-21-2022 11:18-0400 Body temperature 97.81 [degF] Chair Roman Work Phone: [facility] 01-21-2022 11:18-0400 Diastolic blood pressure 52 mm[Hg] Chair Roman Work Phone: [facility] 01-21-2022 11:18-0400 Heart rate 78 /min Chair [place] Work Phone: [facility] 01-21-2022 11:18-0400 Respiratory rate 16 /min Chair Roman Work Phone: [facility] 01-21-2022 11:18-0400 SaO2% (BldA) [Mass fraction] 98 % Chair [place] Work Phone: [facility] 01-21-2022 11:18-0400 Systolic blood pressure 98 mm[Hg] Chair [place] Work Phone: [facility] 01-18-2022 13:20-0400 Body temperature 96.8 [degF] Chair [place] Work Phone: [facility] 01-18-2022 13:20-0400 Diastolic blood pressure 50 mm[Hg] Chair [place] Work Phone: [facility] 01-18-2022 13:20-0400 Heart rate 58 /min Chair [place] Work Phone: [facility] 01-18-2022 13:20-0400 Respiratory rate 18 /min Chair Roman Work Phone: [facility] 01-18-2022 13:20-0400 SaO2% (BldA) [Mass fraction] 99 % Chair Roman Work Phone: [facility] 01-18-2022 13:20-0400 Systolic blood pressure 116 mm[Hg] Chair [place] Work Phone: [facility] 01-17-2022 13:49-0400 Body temperature 97.3 [degF] Chair [place] Work Phone: [facility] 01-17-2022 13:49-0400 Diastolic blood pressure 68 mm[Hg] Chair [place] Work Phone: [facility] 01-17-2022 13:49-0400 Heart rate 56 /min Chair [place] Work Phone: [facility] 01-17-2022 13:49-0400 Respiratory rate 18 /min Chair Roman Work Phone: [facility] 01-17-2022 13:49-0400 SaO2% (BldA) [Mass fraction] 99 % Chair [place] Work Phone: [facility] 01-17-2022 13:49-0400 Systolic blood pressure 112 mm[Hg] Chair Roman Work Phone: [facility] 01-16-2022 13:06-0400 Body temperature 96.69 [degF] Chair [place] Work Phone: [facility] 01-16-2022 13:06-0400 Diastolic blood pressure 49 mm[Hg] Chair Roman Work Phone: [facility] 01-16-2022 13:06-0400 Heart rate 58 /min Chair [place] Work Phone: [facility] 01-16-2022 13:06-0400 Respiratory rate 18 /min Chair [place] Work Phone: [facility] 01-16-2022 13:06-0400 SaO2% (BldA) [Mass fraction] 98 % Chair [place] Work Phone: [facility] 01-16-2022 13:06-0400 Systolic blood pressure 109 mm[Hg] Chair [place] Work Phone: [facility] 01-15-2022 14:00-0400 Body temperature 98.29 [degF] Chair [place] Work Phone: [facility] 01-15-2022 14:00-0400 Diastolic blood pressure 57 mm[Hg] Chair Roman Work Phone: [facility] 01-15-2022 14:00-0400 Heart rate 72 /min Chair Roman Work Phone: [facility] 01-15-2022 14:00-0400 Respiratory rate 18 /min Chair Roman Work Phone: [facility] 01-15-2022 14:00-0400 SaO2% (BldA) [Mass fraction] 98 % Chair Roman Work Phone: [facility] 01-15-2022 14:00-0400 Systolic blood pressure 101 mm[Hg] Chair Roman Work Phone: [facility] 01-14-2022 13:24-0400 Body height 165.2 cm Asher Hummel MD Work Phone: [facility] 01-14-2022 13:24-0400 Body temperature 97.2 [degF] Asher Hummel MD Work Phone: [facility] 01-14-2022 13:24-0400 Body weight 108.14 kg Asher Hummel MD Work Phone: [facility] 01-14-2022 13:24-0400 Diastolic blood pressure 73 mm[Hg] Asher Hummel MD Work Phone: [facility] 01-14-2022 13:24-0400 Heart rate 64 /min Asher Hummel MD Work Phone: [facility] 01-14-2022 13:24-0400 Respiratory rate 16 /min Asher Hummel MD Work Phone: [facility] 01-14-2022 13:24-0400 SaO2% (BldA) [Mass fraction] 98 % Asher Hummel MD Work Phone: [facility] 01-14-2022 13:24-0400 Systolic blood pressure 126 mm[Hg] Asher Hummel MD Work Phone: [facility] 01-07-2022 14:00-0400 Body height 165.2 cm Ma Sand Work Phone: [facility] 01-07-2022 14:00-0400 Body temperature 97.59 [degF] Ma Sand Work Phone: [facility] 01-07-2022 14:00-0400 Body weight 101.15 kg Ma Sand Work Phone: [facility] 01-07-2022 14:00-0400 Diastolic blood pressure 56 mm[Hg] Ma Sand Work Phone: [facility] 01-07-2022 14:00-0400 Heart rate 70 /min Ma Sand Work Phone: [facility] 01-07-2022 14:00-0400 Respiratory rate 16 /min Ma Sand Work Phone: [facility] 01-07-2022 14:00-0400 SaO2% (BldA) [Mass fraction] 92 % Ma Sand Work Phone: [facility] 01-07-2022 14:00-0400 Systolic blood pressure 101 mm[Hg] Ma Sand Work Phone: [facility] 12-21-2021 13:24-0400 Body temperature 97.59 [degF] Chair Roman Work Phone: [facility] 12-21-2021 13:24-0400 Diastolic blood pressure 46 mm[Hg] Chair [place] Work Phone: [facility] 12-21-2021 13:24-0400 Heart rate 54 /min Chair Roman Work Phone: [facility] 12-21-2021 13:24-0400 Respiratory rate 18 /min Chair [place] Work Phone: [facility] 12-21-2021 13:24-0400 SaO2% (BldA) [Mass fraction] 97 % Chair [place] Work Phone: [facility] 12-21-2021 13:24-0400 Systolic blood pressure 127 mm[Hg] Chair [place] Work Phone: [facility] 12-20-2021 13:35-0400 Body temperature 97.7 [degF] Chair [place] Work Phone: [facility] 12-20-2021 13:35-0400 Diastolic blood pressure 55 mm[Hg] Chair [place] Work Phone: [facility] 12-20-2021 13:35-0400 Heart rate 57 /min Chair [place] Work Phone: [facility] 12-20-2021 13:35-0400 Respiratory rate 16 /min Chair [place] Work Phone: [facility] 12-20-2021 13:35-0400 SaO2% (BldA) [Mass fraction] 99 % Chair [place] Work Phone: [facility] 12-20-2021 13:35-0400 Systolic blood pressure 107 mm[Hg] Chair [place] Work Phone: [facility] 12-19-2021 13:32-0400 Body temperature 97.7 [degF] Chair Roman Work Phone: [facility] 12-19-2021 13:32-0400 Diastolic blood pressure 48 mm[Hg] Chair Roman Work Phone: [facility] 12-19-2021 13:32-0400 Heart rate 53 /min Chair Roman Work Phone: [facility] 12-19-2021 13:32-0400 Respiratory rate 18 /min Chair Roman Work Phone: [facility] 12-19-2021 13:32-0400 SaO2% (BldA) [Mass fraction] 97 % Chair Roman Work Phone: [facility] 12-19-2021 13:32-0400 Systolic blood pressure 113 mm[Hg] Chair [place] Work Phone: [facility] 12-17-2021 13:11-0400 Body height 165.2 cm Asher Hummel MD Work Phone: [facility] 12-17-2021 13:11-0400 Body temperature 97.3 [degF] Asher Hummel MD Work Phone: [facility] 12-17-2021 13:11-0400 Body weight 101.24 kg Asher Hummel MD Work Phone: [facility] 12-17-2021 13:11-0400 Diastolic blood pressure 53 mm[Hg] Asher Hummel MD Work Phone: [facility] 12-17-2021 13:11-0400 Heart rate 59 /min Asher Hummel MD Work Phone: [facility] 12-17-2021 13:11-0400 Respiratory rate 16 /min Asher Hummel MD Work Phone: [facility] 12-17-2021 13:11-0400 SaO2% (BldA) [Mass fraction] 88 % Asher Hummel MD Work Phone: [facility] 12-17-2021 13:11-0400 Systolic blood pressure 114 mm[Hg] Asher Hummel MD Work Phone: [facility] 11-29-2021 08:49-0400 Body height 165.2 cm Asher Hummel MD Work Phone: [facility] 11-29-2021 08:49-0400 Body temperature 97.81 [degF] Asher Hummel MD Work Phone: [facility] 11-29-2021 08:49-0400 Diastolic blood pressure 51 mm[Hg] Asher Hummel MD Work Phone: [facility] 11-29-2021 08:49-0400 Heart rate 58 /min Asher Hummel MD Work Phone: [place] [id number] 08:49-0400 Respiratory rate 16 /min Asher Hummel MD Work Phone: [facility] 11-29-2021 08:49-0400 SaO2% (BldA) [Mass fraction] 99 % Asher Hummel MD Work Phone: [facility] 11-29-2021 08:49-0400 Systolic blood pressure 134 mm[Hg] Asher Hummel MD Work Phone: [facility] 11-08-2021 16:00-0400 Body temperature 98.01 [degF] [facility] [place] Work Phone: [facility] 11-08-2021 16:00-0400 Body weight 109.77 kg [facility] [place] Work Phone: [facility] 11-08-2021 16:00-0400 Diastolic blood pressure 51 mm[Hg] [facility] [place] Work Phone: [facility] 11-08-2021 16:00-0400 Heart rate 80 /min [facility] [place] Work Phone: [facility] 11-08-2021 16:00-0400 Respiratory rate 16 /min [facility] [place] Work Phone: [facility] 11-08-2021 16:00-0400 SaO2% (BldA) [Mass fraction] 92 % [facility] [place] Work Phone: [facility] 11-08-2021 16:00-0400 Systolic blood pressure 123 mm[Hg] [facility] [place] Work Phone: [facility] 11-01-2021 14:03-0400 Body temperature 98.2 [degF] Chair Roman Work Phone: [facility] 11-01-2021 14:03-0400 Diastolic blood pressure 59 mm[Hg] Chair [place] Work Phone: [facility] 11-01-2021 14:03-0400 Heart rate 78 /min Chair [place] Work Phone: [facility] 11-01-2021 14:03-0400 Respiratory rate 18 /min Chair [place] Work Phone: [facility] 11-01-2021 14:03-0400 SaO2% (BldA) [Mass fraction] 98 % Chair Roman Work Phone: [facility] 11-01-2021 14:03-0400 Systolic blood pressure 109 mm[Hg] Chair Roman Work Phone: [facility] 10-30-2021 13:55-0400 Body temperature 97.7 [degF] Chair [place] Work Phone: [facility] 10-30-2021 13:55-0400 Diastolic blood pressure 53 mm[Hg] Chair [place] Work Phone: [facility] 10-30-2021 13:55-0400 Heart rate 82 /min Chair [place] Work Phone: [facility] 10-30-2021 13:55-0400 Respiratory rate 18 /min Chair Roman Work Phone: [facility] 10-30-2021 13:55-0400 SaO2% (BldA) [Mass fraction] 97 % Chair [place] Work Phone: [facility] 10-30-2021 13:55-0400 Systolic blood pressure 107 mm[Hg] Chair Roman Work Phone: [facility] 10-29-2021 14:27-0400 Body temperature 97.81 [degF] Chair [place] Work Phone: [facility] 10-29-2021 14:27-0400 Body weight 109.41 kg Chair Roman Work Phone: [facility] 10-29-2021 14:27-0400 Diastolic blood pressure 40 mm[Hg] Chair Roman Work Phone: [facility] 10-29-2021 14:27-0400 Heart rate 72 /min Chair Roman Work Phone: [facility] 10-29-2021 14:27-0400 Respiratory rate 18 /min Chair Roman Work Phone: [facility] 10-29-2021 14:27-0400 SaO2% (BldA) [Mass fraction] 98 % Chair Roman Work Phone: [facility] 10-29-2021 14:27-0400 Systolic blood pressure 102 mm[Hg] Chair [place] Work Phone: [facility] 10-25-2021 14:02-0400 Diastolic blood pressure 48 mm[Hg] Wilfred Martinez APRN.[employer] Work Phone: [facility] 10-25-2021 14:02-0400 Heart rate 80 /min Wilfred Martinez APRN.[employer]INE[employer] Work Phone: [facility] 10-25-2021 14:02-0400 Systolic blood pressure 140 mm[Hg] Wilfred Martinez APRN.[employer] ENGINE[employer] Work Phone: [facility] 10-25-2021 14:00-0400 Body height 165.2 cm Wilfred Martinez APRN.[employer] ENGINE[employer] Work Phone: [facility] 10-25-2021 14:00-0400 Body temperature 97.5 [degF] Wilfred Martinez APRN.[employer] ENGINE[employer] Work Phone: [facility] 10-25-2021 14:00-0400 Body weight 108.77 kg Wilfred Martinez APRN.[employer] ENGINE[employer] Work Phone: [facility] 10-25-2021 14:00-0400 Respiratory rate 16 /min Wilfred Martinez APRN.[employer]INE[employer] Work Phone: [facility] 10-25-2021 14:00-0400 SaO2% (BldA) [Mass fraction] 97 % Wilfred Martinez APRN.[employer] ENGINEER Work Phone: [facility] 09-05-2021 15:03-0500 Body temperature 98.71 [degF] Chair Roman Work Phone: [facility] 09-05-2021 15:03-0500 Diastolic blood pressure 69 mm[Hg] Chair Roman Work Phone: [facility] 09-05-2021 15:03-0500 Heart rate 70 /min Chair Roman Work Phone: [facility] 09-05-2021 15:03-0500 Respiratory rate 20 /min Chair Roman Work Phone: [facility] 09-05-2021 15:03-0500 SaO2% (BldA) [Mass fraction] 98 % Chair Roman Work Phone: [facility] 09-05-2021 15:03-0500 Systolic blood pressure 118 mm[Hg] Chair Roman Work Phone: [facility] Encounters Encounter Date Encounter Type Care Provider Facility Start: 04-05-2024 ambulatory Jacquelin Barton Facility :[facility] [place] Start: 04-02-2024 ambulatory Elena Rashid ty:[facility] [place] Start: 01-20-2024 End: 01-20-2024 ambulatory [facility] Work Phone: Start: 01-20-2024 End: 01-20-[address] [facility] Work Phone: Start: 01-15-2024 ambulatory Jacquelin Barton Facility :[facility] [place] Start: 01-15-2024 End: 01-15-2024 ambulatory KAREN ZARA [facility] Start: 01-06-2024 End: 01-06-2024 ambulatory OUMOU MANDEL Facility:[facility] Start: 01-06-2024 End: 01-06-2024 Patient encounter procedure Oumou Mandel MD Work Phone: Otolaryngology Comment on above: Epistaxis (Primary D x) Start: 11-26-2023 End: 11-26-2023 ambulatory Rowdy Crawford DO Work Phone: [facility] Start: 11-26-2023 End: 11-26-2023 Office outpatient new 60 minutes Rowdy Crawford DO Work Phone: [facility] Comment on above: CKD (chronic kidney disease) stage 4, GFR 15-29 ml/min ([facility]) (Primary Dx) Start: 11-11-2023 End: 11-11-2023 ambulatory MD Jacquelin Barton Work Phone: [facility] Work Phone: Start: 11-11-2023 End: 11-11-2023 Patient encounter procedure MD Jacquelin Barton Work Phone: [facility] [place] Work Phone: Start: 11-04-2023 End: 11-04-2023 ambulatory SANTANA PHILLIPS Not Available Start: 10-27-2023 End: 10-27-2023 ambulatory CURT FARAH Facility:[facility] Start: 10-27-2023 End: 10-27-2023 Patient encounter procedure Curt Farah MD Work Phone: Otolaryngology Comment on above: Oxygen deficit (Prim maykel Dx); Epistaxis; MDS (myelodysplastic syndrome) ([facility]) Start: 10-22-2023 End: 10-22-2023 ambulatory BERNARDA H TIMMIS Not Available Start: 10-21-2023 End: 10-24-2023 Pre-admission assessment Bernarda Olveramis [facility] Start: 10-21-2023 End: 10-21-2023 Emergency department patient visit DEACON [facility] Start: 10-20-2023 End: 10-20-2023 ambulatory BERNARDA H TIMMIS Not Available Start: 10-17-2023 End: 10-17-2023 Emergency department patient visit Caryl Marie Facility:[facility] Start: 10-17-2023 End: 10-17-2023 Emergency department patient visit MD Jacquelin Barton Work Phone: [facility] Work Phone: Start: 10-13-2023 End: 10-14-2023 ambulatory Jacquelin Barton Facility:[facility] Start: 10-10-2023 End: 10-10-2023 ambulatory KAREN [facility] Start: 10-06-2023 End: 10-06-2023 ambulatory BERNARDA HYDE Not Available Start: 09-29-2023 End: 09-29-2023 ambulatory [facility] Start: 09-22-2023 End: 09-23-2023 ambulatory Jacquelin Barton Facility:[facility] Start: 08-29-2023 End: 08-29-2023 ambulatory [facility] Start: 08-19-2023 End: 08-20-2023 ambulatory VAISHALI Valentin [facility] Start: 07-17-2023 End: 07-17-2023 ambulatory RAYO [facility] Start: 07-15-2023 End: 07-16-2023 ambulatory Jacquelin Barton Facility:[facility] Start: 07-11-2023 End: 08-11-2023 ambulatory Jacquelin Barton Facility:CD:[id number] Start: 04-16-2023 End: 04-17-2023 ambulatory Jacquelin Barton Facility:[facility] Start: 03-17-2023 ambulatory Jacquelin Barton Facility :[facility] Start: 03-14-2023 End: 03-14-2023 ambulatory [facility] Start: 03-11-2023 End: 03-12-2023 ambulatory nicholas Lu [place] Start: 03-11-2023 End: 03-12-2023 ambulatory Jacquelin Barton [place] Start: 03-11-2023 End: 03-11-2023 Patient encounter procedure d Lyle Lu [facility] Start: 03-10-2023 End: 03-11-2023 ambulatory Jacquelin Keke Barton Facility:[facility] Jillian sosa Start: 02-13-2023 End: 02-14-2023 ambulatory Jacquelin Barton Facility:[facility] Jillian sosa Start: 01-10-2023 End: 01-11-2023 ambulatory AIRCRAFT [employer] TECHNICIAN Malinda L Earl [place] Start: 01-10-2023 End: 01-11-2023 ambulatory Jacquelin Barton [place] Start: 01-10-2023 End: 01-10-2023 Lab Drop off Malinda L Earl [facility] Start: 01-10-2023 End: 01-10-2023 Lab Drop off Jacquelin Barton [facility] Start: 01-06-2023 End: 01-07-2023 ambulatory Jacquelin Barton [place] Start: 01-06-2023 End: 01-07-2023 ambulatory Jacquelin Barton Facility:[facility] Jillian sosa Start: 12-30-2022 Refill [...] Patient encounter procedure Ccf Provider [facility] Department Start: 11-06-2022 Telephone encounter Asher frances MD Work Phone: Cancer [facility] [place] [place] Comment on above: Results Care Coordination (C BC Results) Start: 10-30-2022 End: 10-30-2022 ambulatory Chair Billy Owens Work Phone: Hematology/Oncology Comment on above: Anemia of chronic re nal failure, stage 4 (severe) (HCC) (Primary Dx); Iron deficiency anemia due to chronic blood loss; MDS (myelodysplastic syndrome) (HCC) Start: 10-25-2022 Patient encounter procedure Ccf Provider [facility] Start: 10-25-2022 End: 10-25-[address] DOCTOR TOM Facility:[facility] Start: 10-24-2022 Telephone encounter Angle parmar RN Work Phone: Hematology/Oncology Comment on above: Care Coordination (C BC Results; Transfusion) Start: 10-23-2022 End: 10-23-2022 ambulatory Lab/Port Sam Roman Work Phone: Hematology/Oncology Comment on above: MDS (myelodysplastic syndrome) (HCC) (Primary Dx) Start: 10-17-2022 Patient encounter procedure Ccf Provider [facility] Department Start: 10-17-2022 Telephone encounter Angle parmar RN Work Phone: Hematology/Oncology Comment on above: Care Coordination (T ransfusion Orders) Start: 10-16-2022 End: 10-16-2022 ambulatory Lab/Port Sam Roman Work Phone: Hematology/Oncology Comment on above: MDS (myelodysplastic syndrome) (HCC) (Primary Dx); Anemia of chronic renal failure, stage 4 (severe) (HCC) Start: 10-16-2022 Patient encounter procedure Ccf Provider [facility] Start: 10-15-2022 End: 10-15-2022 ambulatory Kim López MD Work Phone: Hematology/Oncology Comment on above: MDS (myelodysplastic syndrome) (HCC) (Primary Dx); Anemia, unspecified type Start: 10-15-2022 End: 10-15-2022 Patient encounter procedure Kim López MD Work Phone: [facility] Start: 10-09-2022 End: 10-09-2022 ambulatory Chair 19 Roman Work Phone: Hematology/Oncology Comment on above: MDS (myelodysplastic syndrome) (HCC) (Primary Dx); Anemia of chronic renal failure, stage 4 (severe) (HCC); Iron deficiency anemia due to chronic blood loss Start: 10-03-2022 Patient encounter procedure Ccf Provider [facility] Start: 10-02-2022 Telephone encounter Asher frances MD Work Phone: Cancer [facility] [place] [place] Comment on above: Future Appointment Start: 09-25-2022 [...] Patient encounter procedure Ccf Provider [facility] Start: 09-11-2022 Telephone encounter Angle parmar RN Work Phone: Hematology/Oncology Comment on above: Care Coordination (C BC Results) Start: 09-05-2022 End: 09-13-[address] [facility] Facility: Start: 09-04-2022 Patient encounter procedure Ccf Provider [facility] Start: 09-04-2022 Telephone encounter Asher frances MD Work Phone: Cancer [facility] [place] [place] Comment on above: Future Appointment Start: 08-28-2022 [...] Patient encounter procedure Ccf Provider [facility] Start: 08-22-2022 Telephone encounter Angle parmar RN Work Phone: Hematology/Oncology Comment on above: Care Coordination (T ransfusion Question) Start: 08-21-2022 Telephone encounter Wilfred smith APRN.LINUX SUPPORT ENGINEER Work Phone: Cancer [facility] [place] [place] Comment on above: Future Appointment Start: 08-21-2022 [...] encounter Wilfred smith APRN.CNP Work Phone: Cancer [facility] [place] [place] Comment on above: Future Appointment Care Coordination [...] Patient encounter procedure Ccf Provider [facility] Start: 08-08-2022 End: 08-22-[address] [facility] Facility: Start: 08-07-2022 End: 08-07-2022 ambulatory Chair [...] End: 07-23-2022 Patient encounter procedure Ccf Provider [facility] Start: 07-23-2022 Telephone encounter Asher frances MD Work Phone: [facility] Comment on above: Transfusion Start: 07-18-2022 Telephone encounter Angle Kamara Hematology/Oncology Comment on above: Care Coordination (O xygen Question) Start: 07-16-2022 End: 07-16-2022 ambulatory Kmi López MD Work Phone: Hematology/Oncology Comment on above: MDS (myelodysplastic syndrome) (HCC) (Primary Dx) Start: 07-16-2022 End: 07-16-2022 Patient encounter procedure Kim López MD Work Phone: [facility] Start: 07-15-2022 Telephone encounter Asher frances MD Work Phone: [facility] Comment on above: Future Appointment Start: [...] encounter procedure Asher Hummel MD Work Phone: [employer] Start: 07-11-2022 Telephone encounter Angle Kamara Hematology/Oncology Comment on above: Care Coordination (C BC Results) Start: 07-09-2022 End: 07-09-2022 ambulatory Chair 18 Roman Work Phone: Hematology/Oncology Comment on above: Myelodysplastic synd sommer (HCC) (Primary Dx) Start: 07-09-2022 Patient encounter procedure Ccf Provider [facility] Start: 07-08-2022 End: 07-25-[address] RADHA SANDOVAL Facility: Start: 07-08-2022 End: 07-08-2022 ambulatory Radha LUCREOC Work Phone: Hematology/Oncology Comment on above: MDS [...] encounter Radha calzada PA-C Work Phone: [facility] Comment on above: Transfusion Start: [...] encounter Asher frances MD Work Phone: [facility] Comment on above: Future Appointment [...] Patient encounter procedure Ccf Provider [facility] Start: 06-07-2022 Telephone encounter Asher frances MD Work Phone: Hematology/Oncology Comment on above: Critical Results Start: 06-04-2022 Patient encounter procedure Ccf Provider [facility] Start: 06-04-2022 End: 06-26-[address] DOCTOR TOM Facility:[facility] Start: 06-03-2022 Telephone encounter Asher frances MD Work Phone: [facility] Comment on above: Future Appointment [...] Treatment Call) Start: 05-23-[address] [facility] Facility : Start: 05-21-2022 Patient encounter procedure Ccf Provider [facility] Start: 05-21-2022 End: 05-21-2022 ambulatory Chair [...] encounter procedure Asher Hummel MD Work Phone: [employer] Start: 05-20-2022 Telephone encounter Asher frances MD Work Phone: Cancer [facility] [place] [place] Comment on above: Future Appointment Care Coordination [...] Patient encounter procedure Ccf Provider [facility] Start: 05-07-2022 End: 05-24-[address] [facility] Facility: Start: 05-06-2022 End: 05-06-2022 ambulatory Lab/Port [...] encounter Asher frances MD Work Phone: Cancer [facility] [place] [place] Comment on above: Transfusion Start: 04-29-2022 Telephone [...] End: 04-25-2022 Patient encounter procedure Ccf Provider [facility] Start: 04-25-2022 End: 04-25-2022 ambulatory Asher [...] procedure Kim López MD Work Phone: [facility] Start: 04-15-2022 End: 04-15-2022 ambulatory Lab/[place] Work Phone: Hematology/Oncology Comment on above: Malignant [...] Patient encounter procedure Ccf Provider [facility] Start: 04-03-2022 End: 04-04-[address] WILFRED MARTINEZ Facility: Start: 04-03-2022 Patient encounter procedure Ccf Provider [facility] Start: 04-03-2022 Telephone encounter Fide Fields Hematology/Oncology Comment on above: Results Start: 04-02-2022 Telephone encounter Asher frances MD Work Phone: Cancer [facility] [place] [place] Comment on above: Results Future Appointment Start: [...] encounter Asher frances MD Work Phone: Cancer [facility] [place] [place] Comment on above: Care Coordination (L ab results/) Start: 03-15-2022 End: 03-15-2022 ambulatory Chair Billy Owens Work Phone: Hematology/Oncology Comment on above: Myelodysplastic synd sommer (HCC) (Primary Dx) Start: 03-14-2022 Telephone encounter nAgle parmar RN Work Phone: Hematology/Oncology Comment on above: Care Coordination (A ppointment) Start: 03-14-2022 End: 03-14-2022 ambulatory Chair 17 Roman Work Phone: Hematology/Oncology Comment on above: Myelodysplastic synd sommer (HCC) (Primary Dx) Start: 03-13-2022 End: 03-13-2022 ambulatory Chair 17 Roman Work Phone: Hematology/Oncology Comment on above: Myelodysplastic synd sommer (HCC) (Primary Dx) Start: 03-12-2022 Patient encounter procedure Ccf Provider [facility] Start: 03-11-2022 End: 03-11-2022 ambulatory Chair [...] encounter procedure Asher Hummel MD Work Phone: [employer] Start: 03-11-2022 Telephone encounter Asher frances MD Work Phone: [facility] [employer] Comment on above: Future Appointment Start: 02-28-2022 End: 03-27-[address] [facility] Facility: Start: 02-28-2022 Telephone encounter Asher franecs MD Work Phone: [facility] [employer] Comment on above: Transfusion Start: 02-25-2022 End: [...] encounter procedure Radha Sandoval PA-C Work Phone: [employer] Start: 02-04-2022 End: 02-05-[address] NONE LISTED REQUEST Facility: Start: 02-04-2022 Telephone encounter Asher frances MD Work Phone: [facility] [employer] Comment on above: Future Appointment Care Coordination (C ritical Results) Start: 02-04-2022 End: 02-04-2022 ambulatory Lab/[place] Work Phone: Hematology/Oncology Comment on above: Anemia of chronic re nal failure, stage 4 (severe) (HCC) (Primary Dx) Start: 01-30-2022 End: 01-30-2022 ambulatory Lab/Port Sam [place] Work Phone: Hematology/Oncology Comment on above: CRF [...] Start: 01-18-2022 End: 01-18-2022 ambulatory Chair 17 [employer] Work Phone: Hematology/Oncology Comment on above: CRF (chronic renal f ailure), stage 4 (severe) (HCC) (Primary Dx); Myelodysplastic syndrome (HCC) Start: 01-17-2022 End: 01-17-2022 ambulatory Chair 17 [employer] Work Phone: Hematology/Oncology Comment on above: Myelodysplastic synd sommer (HCC) (Primary Dx) Start: 01-16-2022 End: 01-16-2022 ambulatory Chair 17 [employer] Work Phone: Hematology/Oncology Comment on above: Myelodysplastic synd sommer (HCC) (Primary Dx) Start: 01-15-2022 End: 01-16-2022 ambulatory Chair 17 [employer] Work Phone: Hematology/Oncology Comment on above: Myelodysplastic synd sommer (HCC) (Primary Dx) Start: 01-15-2022 Patient encounter procedure Ccf Provider [facility] Start: 01-14-2022 Telephone encounter Asher frances MD Work Phone: Cancer [facility] [place] [place] Comment on above: Future Appointment Lab Orders Start: 01-14-2022 End: 01-14-2022 ambulatory Chair 18 [employer] Work Phone: Hematology/Oncology Comment on above: Myelodysplastic [...] encounter procedure Asher Hummel MD Work Phone: [employer] Start: 01-07-2022 End: 01-07-2022 Nursing evaluation of patient and report Ma Nurse Sam Bray Work Phone: Hematology/Oncology Comment on above: Anemia of chronic re nal failure, stage 4 (severe) (HCC) (Primary Dx); Iron deficiency anemia due to chronic blood loss; Myelodysplastic syndrome (HCC) Start: 01-01-2022 Telephone encounter Miriam Elizabeth RN Hematology/Oncology Comment on above: B12 injections Start: 12-21-2021 End: 12-21-2021 ambulatory Chair [place] Work Phone: Hematology/Oncology Comment on above: Myelodysplastic synd sommer (HCC) (Primary Dx) Start: 12-20-2021 End: 12-20-2021 ambulatory Chair 17 [place] Work Phone: Hematology/Oncology Comment on above: Myelodysplastic synd sommer (HCC) (Primary Dx) Start: 12-19-2021 End: 12-19-2021 ambulatory Chair [employer] Work Phone: Hematology/Oncology Comment on above: Myelodysplastic synd sommer (HCC) (Primary Dx) Start: 12-17-2021 End: 12-17-2021 ambulatory Chair 17 [employer] Phone: Hematology/Oncology Comment on above: Myelodysplastic synd [...] Start: 12-17-2021 End: 12-17-2021 Patient encounter procedure sAher Hummel MD Work Phone: [facility] Start: 11-29-2021 [...] Evaluation and management of inpatient KELSEY RAMIREZ Facility:[facility] Start: 11-16-2021 Patient encounter procedure Ccf Provider [facility] Start: 11-16-2021 Telephone encounter Angle parmar RN Work Phone: Hematology/Oncology Comment on above: Care Coordination (C BC Results) Start: 11-08-2021 End: 11-08-2021 ambulatory Lab/Port Asm Roman Work Phone: Hematology/Oncology Comment on above: [...] Start: 10-30-2021 End: 10-30-2021 ambulatory Chair 17 [employer] Work Phone: Hematology/Oncology Comment on above: Myelodysplastic synd sommer (HCC) (Primary Dx) Start: 10-29-2021 End: 10-29-2021 ambulatory Chair 18 [place] Work Phone: Hematology/Oncology Comment on above: Myelodysplastic synd sommer (HCC) (Primary Dx) Start: 10-29-2021 Telephone encounter Angle parmar RN Work Phone: Hematology/Oncology Comment on above: Care Coordination (T ransfusion Update) Start: 10-26-2021 Patient encounter procedure Ccf Provider [facility] Start: 10-25-2021 End: 10-25-2021 ambulatory [...] End: 10-25-2021 Patient encounter procedure Wilfred Michelle CHOUDHURYLINUX SUPPORT ENGINEER Work Phone: [facility] Start: 10-15-2021 End: 10-15-2021 Patient encounter procedure Oumou Mandel MD Work Phone: Otolaryngology Comment on above: Chronic Eustachian t ube dysfunction, bilateral (Primary Dx); Epistaxis Start: 09-05-2021 End: 09-05-2021 ambulatory Chair 18 Roman Work Phone: Hematology/Oncology Comment on above: Myelodysplastic synd sommer (HCC) (Primary Dx) Start: 05-29-2020 End: 05-29-2020 Patient encounter procedure External Provider [facility] Start: 05-29-2020 Results Only External Provider Exter nal-NonCCF Start: 06-23-2018 End: 06-24-2018 Patient encounter procedure Evette Sheriff Facility:[facility] Start: 06-11-2018 End: 06-12-2018 Patient encounter procedure Evette Sheriff Facility:[facility] Start: 05-28-2018 End: 05-29-2018 Patient encounter procedure MYLENE ANDREW Facility:[facility] Procedures Date Procedure Procedure Detail Performing Clinician Start: 11-26-2023 Urnls dip stick/tabl et rgnt auto w/o microscopy Bulk Order Provider Start: 11-14-2022 Transfusion of Nonautologous Red Blood Cells into Peripheral Vein, Percutaneous Approach [facility] Start: 05-27-2022 CBC + DIFF Asher frances [...] on above: Performed By: #### [id number] ####[place] [id number] Start: 11-01-2021 Blood count complete auto&auto difrntl wbc Asher Hummel MD Work Phone: Start: 05-29-2020 EXTERNAL IMAGING Binder Folder Operator al Provider Start: 05-29-2020 End: 05-29-2020 EXTERNAL LAB External Provider Start: 05-29-2020 EXTERNAL PROCEDURE Exte rnal Provider Start: 10-23-2011 cysto/ud, bilateral RG Pyelogram Jacquelin Barton Cataract care Jacquelin Barton Placement of stent i n cardiac conduit Jacquelin Barton Comment on above: 2x Plan of Treatment Date Care Activity Detail Author Start: 11-20-2025 DIABETES SCREEN DIABETES SCREEN [facility] Start: 11-06-2025 DIABETES SCREEN DIABETES SCREEN [facility] Start: 10-30-2025 DIABETES SCREEN DIABETES SCREEN [facility] Start: 10-23-2025 DIABETES SCREEN DIABETES SCREEN [facility] Start: 10-16-2025 DIABETES SCREEN DIABETES SCREEN [facility] Start: 10-02-2025 DIABETES SCREEN DIABETES SCREEN [facility] Start: 09-25-2025 DIABETES SCREEN DIABETES SCREEN [facility] Start: 09-18-2025 DIABETES SCREEN DIABETES SCREEN [facility] Start: 09-11-2025 DIABETES SCREEN DIABETES SCREEN [facility] [...] [facility] Start: 01-21-2025 DIABETES SCREEN DIABETES SCREEN [facility] Start: 01-18-2025 DIABETES SCREEN DIABETES SCREEN [facility] Start: 01-14-2025 DIABETES SCREEN DIABETES SCREEN [facility] Start: 01-07-2025 DIABETES SCREEN DIABETES SCREEN [facility] Start: 01-07-2025 End: 01-07-2025 Patient encounter procedure 01/07/2025 12:45 PM EDT Office Visit Otolaryngology [address] [place] [address] Curt Farah MD [address] [place] [address] 1 yr follow up Otolaryngology Comment on above: 1 yr follow up Start: 12-21-2024 DIABETES SCREEN DIABETES SCREEN [facility] Start: 12-17-2024 DIABETES SCREEN DIABETES SCREEN [facility] Start: 11-29-2024 DIABETES SCREEN DIABETES SCREEN [facility] Start: 11-15-2024 DIABETES SCREEN DIABETES SCREEN [facility] Start: 11-08-2024 DIABETES SCREEN DIABETES SCREEN [facility] Start: 11-01-2024 DIABETES SCREEN DIABETES SCREEN [facility] Start: 10-25-2024 DIABETES SCREEN DIABETES SCREEN [facility] Start: 10-11-2024 DIABETES SCREEN DIABETES SCREEN [facility] Start: 09-03-2024 DIABETES SCREEN DIABETES SCREEN [facility] Start: 02-27-2024 End: 02-27-2024 Patient encounter procedure 02/27/2024 2:00 PM EDT Office Visit [facility] [address] [place] [address] [place] [address] [place] [address] Return in [address] Crawford [facility] Comment on above: Return in [address] Crawford Start: 01-06-2024 End: 01-06-2024 Patient encounter procedure 01/06/2024 12:45 PM EDT Office Visit Otolaryngology [address] [place] [address] [place] [address] [place] [address] Return in about 6 weeks (around 12/08/2023). Otolaryngology Comment on above: Return in about 6 weeks (around 4). Start: 12-10-2023 End: 03-10-2024 Basic metabolic 2000 panel - Serum or Plasma BASIC METABOLIC PANEL Lab Routine CKD (chronic kidney disease) stage 4, GFR 15-29 ml/min (HCC) Expected: 12/10/2023, Expires: 03/10/2024 [facility] Work Phone: Comment on above: Expected: 12/10/2023, Expires: 4 Start: 12-08-2023 End: 03-08-2024 Magnesium [Mass/volume] in Serum or Plasma MAGNESIUM Lab Routine CKD (chronic kidney disease) stage 4, GFR 15-29 ml/min (HCC) Expected: 12/08/2023, Expires: 03/08/2024 [facility] Comment on above: Expected: 12/08/2023, Expires: Start: 10-17-2023 [facility] Start: 07-28-2023 Advance Directive Discussion Advance Directive Discussion [facility] Start: 07-28-2023 Behavioral Health Screening Behavioral Health Screening [facility] Start: 07-28-2023 Depression Assessment Depression Assessment [facility] Start: 03-28-2023 Covid-19 Vaccine () Covid-19 Vaccine () [facility] Start: 08-14-2022 End: 10-14-2022 Hematocrit [Volume Fraction] of Blood HEMATOCRIT (HCT) Lab Routine Myelodysplastic syndrome (HCC) Expected: 08/14/2022, Expires: 10/14/2022 [facility] Work Phone: Comment on above: Expected: 08/14/2022, Expires: 3 Start: 08-14-2022 End: 10-14-2022 Hemoglobin [Mass/volume] in Blood HEMOGLOBIN (HGB) Lab Routine Myelodysplastic syndrome (HCC) Expected: 08/14/2022, Expires: 10/14/2022 [facility] Work Phone: Comment on above: Expected: 08/14/2022, Expires: 3 Start: 08-13-2022 End: 10-13-2022 CBC W Auto Differential panel - Blood CBC + DIFF Lab Routine Iron deficiency anemia due to chronic blood loss Expected: 08/13/2022, Expires: 10/13/2022 [facility] Work Phone: Comment on above: Expected: 08/13/2022, Expires: 3 Start: 08-13-2022 End: 10-13-2022 Comprehensive metabolic 2000 panel - Serum or Plasma COMP METABOLIC PANEL Lab Routine Iron deficiency anemia due to chronic blood loss Expected: 08/13/2022, Expires: 10/13/2022 [facility] Work Phone: Comment on above: Expected: 08/13/2022, Expires: 3 Start: 08-13-2022 End: 10-13-2022 Lactate dehydrogenase [Enzymatic activity/volume] in Serum or Plasma LD LACTATE DEHYDRO Lab Routine Iron deficiency anemia due to chronic blood loss Expected: 08/13/2022, Expires: 10/13/2022 [facility] Work Phone: Comment on above: Expected: 08/13/2022, Expires: 3 Start: 07-30-2022 End: 09-29-2022 CBC W Auto Differential panel - Blood CBC + DIFF Lab Routine MDS (myelodysplastic syndrome) (HCC) Anemia of chronic renal failure, stage 4 (severe) (HCC) CRF (chronic renal failure), stage 4 (severe) (HCC) Expected: 07/30/2022, Expires: 09/29/2022 [facility] Work Phone: Comment on above: Expected: 07/30/2022, Expires: 3 Start: 07-30-2022 End: 09-29-2022 Comprehensive metabolic 2000 panel - Serum or Plasma COMP METABOLIC PANEL Lab Routine MDS (myelodysplastic syndrome) (HCC) Anemia of chronic renal failure, stage 4 (severe) (HCC) CRF (chronic renal failure), stage 4 (severe) (HCC) Expected: 07/30/2022, Expires: 09/29/2022 [facility] Work Phone: Comment on above: Expected: 07/30/2022, Expires: 3 Start: 07-28-2022 ADVANCE DIRECTIVE DISCUSSION ADVANCE DIRECTIVE DISCUSSION [facility] Start: 07-28-2022 DEPRESSION ASSESSMENT DEPRESSION ASSESSMENT [facility] Start: 07-08-2022 End: 09-07-2022 CBC W Auto Differential panel - Blood CBC + DIFF Lab Routine MDS (myelodysplastic syndrome) (HCC) CRF (chronic renal failure), stage 4 (severe) (HCC) Expected: 07/08/2022, Expires: 09/07/2022 [facility] Work Phone: Comment on above: Expected: 07/08/2022, Expires: 3 Start: 07-08-2022 End: 09-07-2022 Comprehensive metabolic 2000 panel - Serum or Plasma COMP METABOLIC PANEL Lab Routine MDS (myelodysplastic syndrome) (HCC) CRF (chronic renal failure), stage 4 (severe) (HCC) Expected: 07/08/2022, Expires: 09/07/2022 [facility] Work Phone: Comment on above: Expected: 07/08/2022, Expires: 3 Start: 06-24-2022 End: 08-24-2022 CBC W Auto Differential panel - Blood CBC + DIFF Lab Routine MDS (myelodysplastic syndrome) (HCC) CRF (chronic renal failure), stage 4 (severe) (HCC) Anemia of chronic renal failure, stage 4 (severe) (HCC) Expected: 06/24/2022, Expires: 08/24/2022 [facility] Work Phone: Comment on above: Expected: 06/24/2022, Expires: 3 Start: 06-24-2022 End: 08-24-2022 Comprehensive metabolic 2000 panel - Serum or Plasma COMP METABOLIC PANEL Lab Routine MDS (myelodysplastic syndrome) (HCC) CRF (chronic renal failure), stage 4 (severe) (HCC) Anemia of chronic renal failure, stage 4 (severe) (HCC) Expected: 06/24/2022, Expires: 08/24/2022 [facility] Work Phone: Comment on above: Expected: 06/24/2022, Expires: 3 Start: 06-10-2022 End: 08-10-2022 CBC W Auto Differential panel - Blood CBC + DIFF Lab Routine MDS (myelodysplastic syndrome) (HCC) Expected: 06/10/2022, Expires: 08/10/2022 [facility] Work Phone: Comment on above: Expected: 06/10/2022, Expires: 3 Start: 06-10-2022 End: 08-10-2022 Comprehensive metabolic 2000 panel - Serum or Plasma COMP METABOLIC PANEL Lab Routine MDS (myelodysplastic syndrome) (HCC) Expected: 06/10/2022, Expires: 08/10/2022 [facility] Work Phone: Comment on above: Expected: 06/10/2022, Expires: 3 Start: 04-25-2022 End: 06-25-2022 MISC SEND OUT TST 1 MISC SEND OUT TST 1 Lab Routine Myelodysplastic syndrome (HCC) Expected: 04/25/2022, Expires: 06/25/2022 [facility] Work Phone: Comment on above: Expected: 04/25/2022, Expires: 2 Start: 03-28-2022 Influenza vaccination INFLUENZA (#1) [facility] Start: 02-11-2022 End: 04-13-2022 CBC W Auto Differential panel - Blood CBC + DIFF Lab Routine Anemia of chronic renal failure, stage 4 (severe) (HCC) Myelodysplastic syndrome (HCC) Expected: 02/11/2022, Expires: 04/13/2022 [facility] Work Phone: Comment on above: Expected: 02/11/2022, Expires: 2 Start: 02-11-2022 End: 04-13-2022 Comprehensive metabolic 2000 panel - Serum or Plasma COMP METABOLIC PANEL Lab Routine Anemia of chronic renal failure, stage 4 (severe) (HCC) Myelodysplastic syndrome (HCC) Expected: 02/11/2022, Expires: 04/13/2022 [facility] Work Phone: Comment on above: Expected: 02/11/2022, Expires: Start: 12-02-2021 End: 11-29-2022 CBC W Auto Differential panel - Blood CBC + DIFF Lab Routine Myelodysplastic syndrome (HCC) CRF (chronic renal failure), stage 4 (severe) (HCC) Anemia of chronic renal failure, stage 4 (severe) (HCC) 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 transfusions Expected: 12/02/2021 (Approximate), Expires: 11/29/2022 [facility] Work Phone: Comment on above: Expected: 12/02/2021 (Approximate), Expi res: 11/29/2022 Start: 12-02-2021 End: 11-29-2022 Comprehensive metabolic 2000 panel - Serum or Plasma COMP METABOLIC PANEL Lab Routine Myelodysplastic syndrome (HCC) CRF (chronic renal failure), stage 4 (severe) (HCC) Anemia of chronic renal failure, stage 4 (severe) (HCC) 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 transfusions Expected: 12/02/2021 (Approximate), Expires: 11/29/2022 [facility] Work Phone: Comment on above: Expected: 12/02/2021 (Approximate), Expi res: 11/29/2022 Start: 07-28-2021 ADVANCE DIRECTIVE DISCUSSION ADVANCE DIRECTIVE DISCUSSION [facility] Start: 07-28-2021 DEPRESSION ASSESSMENT DEPRESSION ASSESSMENT [facility] Start: 03-28-2020 Influenza vaccination INFLUENZA (#1) [facility] Start: 05-08-2015 Pneumococcal Vaccine: 65+ (2 of 2 - PCV) Pneumococcal Vaccine: 65+ (2 of 2 - PCV) [facility] Start: 05-08-2015 PNEUMOCOCCAL: 65+ (3 - PCV) PNEUMOCOCCAL: 65+ (3 - PCV) [facility] Start: 06-27-2008 DIABETES SCREEN DIABETES SCREEN [facility] Start: 07-13-2007 PNEUMOVAX AGE 65 AND OVER WITH 5YR LOOKBACK (#1) PNEUMOVAX AGE 65 AND OVER WITH 5YR LOOKBACK (#1) [facility] Start: 06-27-2006 Hepatitis B surface antibody level LDL CHOLESTEROL [facility] Start: 12-06-2003 ADVANCE DIRECTIVE DISCUSSION ADVANCE DIRECTIVE DISCUSSION [facility] Start: 1998 RSV Vaccine (1 - 1-dose 60+ series) RSV Vaccine (1 - 1-dose 60+ series) [facility] Start: 1988 SHINGRIX VACCINE (1 of 2) SHINGRIX VACCINE (1 of 2) [facility] Start: 1957 SHINGRIX VACCINE (1 of 2) SHINGRIX VACCINE (1 of 2) [facility] Start: 1957 Urine microalbumin profile [facility] Start: 1948 3 comp foot exam completed DIABETIC FOOT EXAM [facility] Start: 1948 Diabetic foot examination Diabetic Foot Exam [facility] Start: 1948 Glaucoma screening Dilated Retinal Exam [facility] Start: 1948 Hepatitis B screening URINE ALBUMIN:CREATININE RATIO [facility] Start: 1948 Hepatitis C antibody, confirmatory test DILATED RETINAL EXAM [facility] Start: 12-06-1943 Hemoglobin A1c measurement HbA1C [facility] Start: 12-06-1943 Hemoglobin A1c/Hemoglobin.total in Blood HBA1C [facility] BONE MARROW ANALYSIS [facility] Work Phone: Comment on above: Ordered: 04/25/2022 BONE MARROW CHROMOSO ME ANAL [facility] Work Phone: Comment on above: Ordered: 04/25/2022 CBC W Auto Different ial panel - Blood CBC + DIFF Lab Routine Myelodysplastic syndrome (HCC) CRF (chronic renal failure), stage 4 (severe) (HCC) Anemia of chronic renal failure, stage 4 (severe) (HCC) 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 transfusions 01/21/2022 1:47 PM EDT [facility] Work Phone: CBC W Auto Different ial panel - Blood CBC + DIFF Lab Routine Myelodysplastic syndrome (HCC) CRF (chronic renal failure), stage 4 (severe) (HCC) 02/15/2022 1:31 PM EDT [facility] Work Phone: CBC W Auto Different ial panel - Blood CBC + DIFF Lab Routine Myelodysplastic syndrome (HCC) CRF (chronic renal failure), stage 4 (severe) (HCC) Ordered: 04/25/2022 [facility] Work Phone: Comment on above: Ordered: 04/25/2022 CBC W Auto Different ial panel - Blood CBC + DIFF Lab Routine Myelodysplastic syndrome (HCC) CRF (chronic renal failure), stage 4 (severe) (HCC) 05/27/2022 1:47 PM EDT [facility] Work Phone: End: 08-13-2023 CBC W Auto Differential panel - Blood CBC + DIFF Lab Routine Iron deficiency anemia due to chronic blood loss MDS (myelodysplastic syndrome) (HCC) Anemia of chronic renal failure, stage 4 (severe) (HCC) 2x per week for 100 Occurrences starting 08/13/2022 until 08/13/2023 [facility] Work Phone: Comment on above: 2x per week for 100 Occurrences starting 08/13/2022 until 08/13/2023 End: 08-13-2023 Comprehensive metabolic 2000 panel - Serum or Plasma COMP METABOLIC PANEL Lab Routine Iron deficiency anemia due to chronic blood loss MDS (myelodysplastic syndrome) (HCC) Anemia of chronic renal failure, stage 4 (severe) (HCC) 2x per week for 100 Occurrences starting 08/13/2022 until 08/13/2023 [facility] Work Phone: Comment on above: 2x per week for 100 Occurrences starting 08/13/2022 until 08/13/2023 DNA EXTRACTION BONE MARROW (BUFFY COAT) [facility] Work Phone: Comment on above: Ordered: 04/25/2022 FLOW CYTOMETRY BONE MARROW HOLD (BMHOLD) FLOW CYTOMETRY BONE MARROW HOLD (BMHOLD) Lab Routine Myelodysplastic syndrome (HCC) CRF (chronic renal failure), stage 4 (severe) (HCC) Ordered: 04/25/2022 [facility] Work Phone: Comment on above: Ordered: 04/25/2022 FLT3 ITD HN BONE MARROW [facility] Work Phone: Comment on above: Ordered: 04/25/2022 MYELOID NGS PANEL NATALIE NE MARROW [facility] Work Phone: Comment on above: Ordered: 04/25/2022 MYELOID NGS PANEL NATALIE NE MARROW [facility] Work Phone: Comment on above: Ordered: 04/25/2022 MYELOPROLIFERATIVE NEOPLASM PANEL MARROW MYELOPROLIFERATIVE NEOPLASM PANEL MARROW Lab Routine Myelodysplastic syndrome (HCC) CRF (chronic renal failure), stage 4 (severe) (HCC) Ordered: 04/25/2022 [facility] Work Phone: Comment on above: Ordered: 04/25/2022 Patient Education Nosebleeds [facility] Work Phone: Patient referral [facility] Work Phone: Renal function 2000 panel - Serum or Plasma [facility] Immunizations Immunization Date Immunization Notes Care Provider Pierce cosme 04-16-2023 influenza, high dose seasonal, preservative-free Bernarda Timmis [facility] 05-20-2022 influenza virus vacc ine, unspecified formulation Jacquelin Mick [facility] 05-20-2022 influenza, high-dose , quadrivalent vaccine (FLUZONE HIGH DOSE QUADRIVALENT) Asher Hummel MD Work Phone: [facility] 04-27-2022 influenza virus vacc ine, unspecified formulation Bernarda Hyde [facility] 04-27-2022 influenza, high dose seasonal, preservative-free [facility] 06-29-2021 SARS-CoV-2 (COVID-19 ) [id number] vaccine Jacquelin Barton [facility] 05-02-2021 influenza virus vacc ine, unspecified formulation Jacquelin Barton [facility] 05-02-2021 influenza, high-dose , quadrivalent vaccine (FLUZONE HIGH DOSE QUADRIVALENT) Chair Owens Work Phone: [facility] 09-25-2020 COVID-19 vaccine, fu ll dose (MODERNA) Chair Owens Work Phone: [facility] 09-16-2020 COVID-19 vaccine, ag e 12+ yr (PFIZER-BIONTECH - [facility] TOP) Chair Owens Work Phone: [facility] 09-14-2020 COVID-19 vaccine, fu ll dose (MODERNA) Chair Owens Work Phone: [facility] 08-28-2020 COVID-19 vaccine, fu ll dose (MODERNA) Chair Owens Work Phone: [facility] 08-25-2020 COVID-19 vaccine, ag e 12+ yr (PFIZER-BIONTECH - PURPLE TOP) Chair Owens Work Phone: [facility] 08-17-2020 COVID-19 vaccine, fu ll dose (MODERNA) Chair Owens Work Phone: [facility] 06-23-2019 influenza virus vacc ine, unspecified formulation Jacquelin Barton [facility] 06-23-2019 Seasonal, quadrivale nt, recombinant, injectable influenza vaccine, preservative free Chair Owens Work Phone: [facility] 05-10-2019 influenza virus vacc ine, unspecified formulation Jacquelin Barton [facility] 05-10-2019 influenza, seasonal, injectable Chair Owens Work Phone: [facility] 05-28-2018 influenza virus vacc ine, unspecified formulation Jacquelin Barton [facility] 05-28-2018 influenza, high dose seasonal, preservative-free Chair Owens Work Phone: [facility] 06-18-2015 influenza virus vacc ine, unspecified formulation Jacquelin Barton [facility] 06-18-2015 influenza, seasonal, injectable, preservative free Chair Owens Work Phone: [facility] 05-08-2014 influenza virus vacc ine, unspecified formulation Jacquelin Barton [facility] 05-08-2014 influenza, seasonal, injectable, preservative free Chair Owens Work Phone: [facility] 05-08-2014 pneumococcal polysaccharide vaccine, 23 valent Chair Owens Work Phone: [facility] 05-23-2013 influenza virus vacc ine, unspecified formulation Jacquelin Barton [facility] 05-23-2013 influenza, seasonal, injectable Chair Owens Work Phone: [facility] 06-27-2005 influenza virus vacc ine, unspecified formulation External Provider [facility] Work Phone: 07-13-2002 influenza virus vacc ine, unspecified formulation External Provider [facility] 07-13-2002 pneumococcal polysaccharide vaccine, 23 valent External Provider [facility] Payers Date Payer Category Payer Self-pay 2023 Private Health Insurance [id number] 2023 Private Health Insurance [id number] 2022 Medicare [id number] 2021 Medicare MMO MEDICARE MMO MEDADVANTAGE PPO [id number] 2021-Present [phone] [address] [place] [address] PPO [id number] 2021 Medicare [id number] 2019 Medicare AETNA MEDICARE A ETNA MEDICARE PPO [id number] 2019-Present PPO [id number] .[id number] 2017 Private Health Insurance [id number] Unknown [id number] 1938 Unknown [id number] 2.840.1.907508.3.579 .2. 1938 Unknown [id number] 2.840.1.416636.3.579 .2. 1938 Unknown [id number] 2.16840.1.788158.3.579 .2. 1938 Unknown [id number] 2.16840.1.182427.3.579 .2. 1938 Unknown [id number] 2.16.840.1.529526.3.579 .2.647 1938 Unknown [id number] 2.16.840.1.350182.3.579 .2.593 1938 Unknown [id number] 2.16.840.1.614242.3.579 .2.593 1938 Unknown [id number] 2.16.840.1.027714.3.579 .2.593 1938 Unknown [id number] 2.16.840.1.060250.3.579 .2.593 1938 Unknown [id number] 2.16.840.1.277979.3.579 .2.593 1938 Unknown [id number] 2.16.840.1.230788.3.579 .2.593 1938 Unknown [id number] 2.16.840.1.901454.3.579 .2.593 1938 Unknown [id number] 2.16.840.1.445770.3.579 .2.593 1938 Unknown [id number] 2.16.840.1.821532.3.579 .2.593 1938 Unknown [id number] 2.16.840.1.989110.3.579 .2.593 1938 Unknown [id number] 2.16.840.1.803989.3.579 .2.593 1938 Unknown [id number] 2.16.840.1.423409.3.579 .2.593 1938 Unknown [id number] 2.16.840.1.867782.3.579 .2.593 1938 Unknown [id number] 2.16.840.1.248184.3.579 .2.593 1938 Unknown [id number] 2.16.840.1.833676.3.579 .2.593 1938 Unknown [id number] 2.16.840.1.683593.3.579 .2.593 1938 Unknown [id number] 2.16.840.1.206937.3.579 .2.59 1938 Unknown [id number] 2.16.840.1.801932.3.579 .2.59 1938 Unknown [id number] 2.16.840.1.017170.3.579 .2.59 1938 Unknown [id number] 2.16.840.1.632261.3.579 .2.125 1938 Unknown [id number] 2.16.840.1.190164.3.579 .2.125 1938 Unknown [id number] 2.16.840.1.692960.3.579 .2.125 1938 Unknown [id number] 2.16.840.1.528514.3.579 .2.125 1938 Unknown [id number] 2.16.840.1.317051.3.579 .2.72 1938 Unknown [id number] 2.16.840.1.947470.3.579 .2.72 1938 Unknown [id number] 2.16.840.1.951056.3.579 .2.72 1938 Unknown [id number] 2.16.840.1.555955.3.579 .2.72 1938 Unknown [id number] 2.16.840.1.592771.3.579 .2.72 1938 Unknown [id number] 2.16.840.1.206773.3.579 .2.72 1938 Unknown [id number] 2.16.840.1.966423.3.579 .2.72 1938 Unknown [id number] 2.16.840.1.188628.3.579 .2. 1938 Unknown [id number] 2.16.840.1.161760.3.579 .2 1938 Unknown [id number] 2.16.840.1.727555.3.579 .2 1938 Unknown [id number] 2.16.840.1.121283.3.579 .2 1938 Unknown [id number] 2.16.840.1.051869.3.579 .2 1938 Unknown [id number] 2.16.840.1.520190.3.579 .2 1938 Unknown [id number] 2.16.840.1.798190.3.579 .2 1938 Unknown [id number] 2.16.840.1.246930.3.579 .2 1938 Unknown [id number] 2.16.840.1.171413.3.579 .2 1938 Unknown [id number] 2.16.840.1.769534.3.579 .2 1938 Unknown [id number] 2.16.840.1.547562.3.579 .2 1938 Unknown [id number] 2.840.1.197300.3.579 .2 1938 Unknown [id number] 2.16.840.1.661489.3.579 .2 1938 Unknown [id number] 2.16.840.1.459574.3.579 .2 1938 Unknown [id number] 2.16.840.1.734673.3.579 .2.72 Unknown [id number] 2.16.840.1.775868.3.579 .2.531 Social History Date Type Detail Facility [facility] Start: 1940 Sex Assigned At Not on file [facility] Exposure to SARS-CoV -2 (event) Unable to assess [facility] Start: 05-29-2020 End: 11-11-2023 Tobacco smoking status NHIS Ex-smoker [facility] Comment on above: quit 1993 End: 07-28-1994 History of tobacco use Current smoker [facility] End: 07-28-1994 History of tobacco use Pipe Smoker [facility] Start: 05-29-2020 End: 03-11-2022 Tobacco use and exposure Smokeless tobacco non-user [facility] Start: 10-15-2021 End: 01-06-2024 Alcohol intake Ex-drinker (finding) [facility] Start: 10-05-2021 End: 07-01-2022 Exposure to SARS-CoV-2 (event) Not sure [facility] History of tobacco use Passive smoker [facility] Start: 11-20-2022 End: 02-18-2023 Sex Assigned At Male [facility] Start: 1940 Sex Assigned At Male [facility] Tobacco smoking status Never [facility] Comment on above: quit 1993 Start: 11-20-2022 End: 02-18-2023 History of Social function [facility] Medical Equipment Procedure Code Equipment Code Equipment Origin al Text Equipment Identifier Dates [id number], [id number] Start: 04-07-2020 See Instructions , One touch [...] Cardiac status will be reassessed 3-6 months. [facility] 01-15-2024 Note [facility] II-III currentl y fairly [...] fluid restriction 1.5-2L/day, renal function and electrolytes- [facility] 01-15-2024 Note Lipid abnormalities are unchanged. Pharmacotherapy as ordered. Lipids will be reassessed in 6 months. [facility] 01-15-2024 Note No concerning sympto ms at this time. Repeat echo prior to next visit [facility] 01-15-2024 Note [id number]= 5 Age, CHF, HTN, DM In light of recent bleeding issues/epistaxis anticoagulation has been stopped, Dr Gomez d/w them regarding watchman implantation and he refused any invasive procedure at this time. Currently rate controlled Continue toprol [facility] 01-15-2024 Note [facility] CARDIOLOGY PROGR ESS NOTE [...] BP has been running low. Supposedly his certified surgical tech/first assistant put him on metolazone once a week. [...] the echocardiogram performed in June 2020 at [facility]. Previously he sustained GI bleeding and underwent investigation of the [facility] clinic. He recovered from that. He [...] procedures. On 11/18/2021 he was admitted to [facility] with decompensated heart failure. In addition he was found to have type II [place]. He underwent diuresis. Right heart catheterization on 11/21/2021 showed elevated filling pressures. Transesophageal echocardiogram showed moderately reduced systolic function with an ejection fraction of 30 to 35% and severe mitral regurgitation. Since last visit he has been doing about the same. He continues to be on oxygen therapy continuously. He is being treated for MDS by his event planner and was previously started on new medication for that. this was stopped. He is currently under treatment with a new event planner and his anemia is being managed by [...] June 2023 he was admitted to the [facility] with low hemoglobin and received 3 [...] feels better when (more content not included)... [facility] 01-15-2024 Note Patient here for 3 m o follow up chronic systolic heart failure, hypertension, permanent afib, and mitral valve regurgitation. Had blood transfusion 2 days ago after lab work. said BP has been running low. Supposedly his certified surgical tech/first assistant put him on metolazone once a week. Denies chest pain, palpitations, lightheadedness/syncope. Review of Systems Constitutional: Positive for malaise/fatigue. HENT: Positive for hearing loss. Cardiovascular: Positive for dyspnea on exertion. Respiratory: Positive for cough and shortness of breath. Hematologic/Lymphatic: Bruises/bleeds easily. Musculoskeletal: Positive for arthritis, back pain and muscle weakness. Neurological: Positive for weakness. All other systems reviewed and are negative. [facility] 01-06-2024 Note HNO ID: [id number] Author: OUMOU MANDEL MD Service: ? Author [...] Medical Decision Making Level: 3 - Low [place] 01-06-2024 History of Present illness Narrative History: [...] Low documented in this encounter [facility] 11-26-2023 Instructions Rowdy Crawford DO - 11/26/2023 [...] questions or concerns documented in this encounter [facility] 11-26-2023 History of Present illness Narrative Images [...] after a week no better, move to [facility] metolazone. Despite the order existing he's not taken this drug before -repeat labs in 2 weeks in [place], printed orders given. -RTC in 3 months or so SUBJECTIVE chief complaint HPI: 82 year old mal hx of HTN, diastolic CHF, afib, CAD, DM, Prostate Cancer, MDS. Much of his care has been at [facility]. He's had ongoing and previous episodes [...] Had hyperkaelmia in september which he saw ELECTRIC MOTOR CONTROL ASSEMBLER Zara Armendarizmex: 1mg bid Adlactone + K [...] immunosuppression, hospitalization,de-escalate care) documented in this encounter [facility] 11-26-2023 Note HNO ID: [id number] Author: ROWDY CRAWFORD DO Service: ? Author [...] after a week no better, move to [facility] metolazone. Despite the order existing he's not taken this drug before -repeat labs in 2 weeks in [place], printed orders given. -RTC in 3 months or so SUBJECTIVE chief complaint HPI: 82 year old mal hx of HTN, diastolic CHF, afib, CAD, DM, Prostate Cancer, MDS. Much of his care has been at [facility]. He's had ongoing and previous episodes [...] Had hyperkaelmia in september which he saw ELECTRIC MOTOR CONTROL ASSEMBLER Zara Bumex: 1mg bid Adlactone + K [...] (Left): 93/39 I (more content not included)... [place] 11-26-2023 Note Patient Outreach (ANA LUISA DMMN) SANDIP BROUSSARD ([id number]) 1940 M Date Time Provider Department 11/26/23 ROWDY CRAWFORD During your visit today, we recorded the following information about you: Allergies As of Date: 11/26/2023 Noted Allergy Reaction BEE POLLEN 10/27/2023 4 - Hives COREG (CARVEDILOL) 05/29/2020 4 - Hives Date Reviewed: 11/26/2023 Reviewed by: Aubrie Osorio OCCA - Fully Assessed Visit Diagnosis:Screening for genitourinary condition [Z13.89] Order(s):URINALYSIS, REFLEX MICROSCOPIC [[id number]] Order #: [id number]. #:[id number] Prescriptions as of 12/01/2023 - acetaminophen-codeine (TYLENOL-COD [...] stage 3 chronic k*12/01/2022 Encounter Status:Closed by Mahindra REVA, PRODUSER on 12/01/23 [place] 10-27-2023 Instructions Curt Farah MD - 10/27/2023 3:30 PM EDT The patient was instructed to keep the nose moist and apply: 1- Bactroban ointment twice daily for the next several weeks 2- [place] nasal spray 3-4 sprays in each nostril [...] nearest emergency room. documented in this encounter [facility] 10-27-2023 Note HNO ID: [id number] Author: CURT FARAH MD Service: ? Author Type: Physician Type: Progress Notes Filed: 10/27/2023 16:17 Note Text: SECTION OF RHINOLOGY, SINUS AND SKULL BASE SURGERY Head and Neck [place] NOTE HPI: Patient is a 82 [...] discharge, no poly (more content not included)... [place] 10-27-2023 History of Present illness Narrative Images from the original note were not included. SECTION OF RHINOLOGY, SINUS AND SKULL BASE SURGERY Head and Neck [facility], [facility] NOTE HPI: Patient is a 82 [...] another 10 minutes. You can spray an tlqg-ywl-fgdzbbw decongestant spray, such as oxymetazoline (Afrin , Raphael-Synephrine ) into the bleeding side of the nose and then apply pressure to the nose as described above. Do not use Afrin for more than 5 days. The patient was instructed to keep the nose moist and apply: 1- Bactroban ointment twice daily for the next several weeks 2- Washita nasal spray 3-4 sprays in each nostril [...] accurate and complete. documented in this encounter [facility] 10-22-2023 Note [id number] 10-14-2023 Hospital Discharge instructions Additional [...] with ENT for nosebleed as instructed per rAnol. Avoid blowing your nose You understand signing out AGAINST MEDICAL ADVICE if there is anything cardiac going indicated cardiac arrest, respiratory arrest, disability, [facility] Work Phone: 10-10-2023 Note stable [facility] 10-10-2023 Note Will continue to mon itor, no acute symptoms at this time Dr Gomez d/w about mitraclip procedure and he also declined this procedure [facility] 10-10-2023 Note In light of recent b leeding issues/epistaxis anticoagulation has been stopped, Dr Gomez d/w them regarding watchman implantation and he refused any invasive procedure at this time. [facility] 10-10-2023 Note Remains on oxygen, d enied any worsening SOB [facility] 10-10-2023 Note [facility] II-III currentl y appears euvolemic without exacerbation Continue GDMT- ASA, lipitor, farxiga, lisinopril, toprol, aldactone and Diuretic therapy- bumex 2 mg bid Monitor daily weights, I&O, fluid restriction 1.5-2L/day, renal function and electrolytes- please maintain K+>4 and Mg > 2 [facility] 10-10-2023 Note HTN well controlled 101/55 Continue toprol, lisinopril, aldactone [facility] 10-10-2023 Note UTP CARDIOLOGY PROGR ESS NOTE [...] the echocardiogram performed in June 2020 at [facility]. Previously he sustained GI bleeding and underwent investigation of the [facility] clinic. He recovered from that. He [...] procedures. On 11/18/2021 he was admitted to [facility] with decompensated heart failure. In addition he was found to have type II WY. He underwent diuresis. Right heart catheterization on 11/21/2021 showed elevated filling pressures. Transesophageal echocardiogram showed moderately reduced systolic function with an ejection fraction of 30 to 35% and severe mitral regurgitation. Since last visit he has been doing about the same. He continues to be on oxygen therapy continuously. He is being treated for MDS by his event planner and was previously started on new medication for that. this was stopped. He is currently under treatment with a new event planner and his anemia is being managed by [...] June 2023 he was admitted to the [facility] with low hemoglobin and received 3 [...] 3 (CMS/HCC) Ch (more content not included)... [facility] 10-10-2023 Note Patient here for 2 w s[place]ovia follow up per Dr. Gomez. He is [...] All other systems reviewed and are negative. [facility] 09-29-2023 Note [facility] Subjective Sandip Broussard is a [...] the echocardiogram performed in June 2020 at [facility]. Previously he sustained GI bleeding and underwent investigation of the [facility] clinic. He recovered from that. He [...] procedures. On 11/18/2021 he was admitted to [facility] with decompensated heart failure. In addition he was found to have type II WY. He underwent diuresis. Right heart catheterization on 11/21/2021 showed elevated filling pressures. Transesophageal echocardiogram showed moderately reduced systolic function with an ejection fraction of 30 to 35% and severe mitral regurgitation. Since last visit he has been doing about the same. He continues to be on oxygen therapy continuously. He is being treated for MDS by his event planner and was previously started on new medication for that. this was stopped. He is currently under treatment with a new event planner and his anemia is being managed by [...] he was admi (more content not included)... [facility] 09-22-2023 Note Chief Complaint Re-Referral *possible chronic [...] family member reports is preferred by his rehabilitation nurse due to hx of heart failure. Discussed [...] [facility] [address] [place] [phone]- [phone] Additional Instructions: 6 mos (no labs) Patient [...] Center discharge follow-up Immunodeficiency due to drugs Incomplete [...] conduit. Medications aspi (more content not included)... [facility] Comment on above: Result Comment: Elec tronically Signed By: Elena DO MD\.br\Date and Time Signed: 09/22/23 14:33 EST\.br\Electronically Co-Signed By: Radha Aldana\.br\Date and Time Co-Signed: 09/22/23 14:32 EST 08-29-2023 Note [facility] Subjective Sandip Broussard is a [...] the echocardiogram performed in June 2020 at [facility]. Previously he sustained GI bleeding and underwent investigation of the [facility] clinic. He recovered from that. He [...] procedures. On 11/18/2021 he was admitted to [facility] with decompensated heart failure. In addition he was found to have type II WY. He underwent diuresis. Right heart catheterization on 11/21/2021 showed elevated filling pressures. Transesophageal echocardiogram showed moderately reduced systolic function with an ejection fraction of 30 to 35% and severe mitral regurgitation. Since last visit he has been doing about the same. He continues to be on oxygen therapy continuously. He is being treated for MDS by his event planner and was previously started on new medication for that. this was stopped. He is currently under treatment with a new event planner and his anemia is being managed by [...] June 2023 he was admitted to the [facility] (more content not included)... [facility] 07-17-2023 Note Patient here for [facility]. He was recently admitted with renal failure [...] All other systems reviewed and are negative. [facility] 07-17-2023 Note [facility] Subjective Sandip Broussard is a [...] the echocardiogram performed in June 2020 at [facility]. Previously he sustained GI bleeding and underwent investigation of the [facility] clinic. He recovered from that. He [...] procedures. On 11/18/2021 he was admitted to [facility] with decompensated heart failure. In addition he was found to have type II WY. He underwent diuresis. Right heart catheterization on 11/21/2021 showed elevated filling pressures. Transesophageal echocardiogram showed moderately reduced systolic function with an ejection fraction of 30 to 35% and severe mitral regurgitation. Since last visit he has been doing about the same. He continues to be on oxygen therapy continuously. He is being treated for MDS by his event planner and was previously started on new medication for that. this was stopped. He is currently under treatment with a new event planner and his anemia is being managed by [...] states he feels (more content not included)... [facility] 07-16-2023 Note [id number] 03-14-2023 Note [facility] Subjective Sandip A Berberick is [...] the echocardiogram performed in June 2020 at [facility]. Previously he sustained GI bleeding and underwent investigation of the [facility] clinic. He recovered from that. He [...] procedures. On 11/18/2021 he was admitted to [facility] with decompensated heart failure. In addition he was found to have type II WY. He underwent diuresis. Right heart catheterization on 11/21/2021 showed elevated filling pressures. Transesophageal echocardiogram showed moderately reduced systolic function with an ejection fraction of 30 to 35% and severe mitral regurgitation. Since last visit he has been doing about the same. He continues to be on oxygen therapy continuously. He is being treated for MDS by his event planner and was previously started on new medication for that. this was stopped. He is currently under treatment with a new event planner and his anemia is being managed by [...] BP Cuff Si (more content not included)... [facility] 02-26-2023 Hospital Discharge instructions Follow Up Care 02/26/2023 08:42:11 With:Jose Lu Address: [facility] [address] [place] [phone]- [phone] Business (1) When: Unknown Comments:Labs todayFecal occult stool testingUrinalysis with micro todayWeekly CBC with differential and type and cross and transfuse if hemoglobin less than 8.0 at [facility].CMP and LDH every [address] Mercer for palliative management.Return in 6 weeks. [facility] 12-31-2022 Miscellaneous Notes Patient notified to make appt for refill documented in this encounter [facility] 11-20-2022 Miscellaneous Notes Concha @ [facility] notified and verbalizes understanding. Angle Kamara RN Images from the original note were not included. Per Dr. Hummel's check out note this afternoon: All appointments were cancelled. Images from the original note were not included. Bobbi Mehta [facility] You; Wilfred Martinez APRN.LINUX SUPPORT ENGINEER; Asher Hummel MD; Roman Clerical Pool; [facility] Pool 14 minutes ago (3:54 PM) LAN Asher, Do they realize the cost of Luspatercept? luspatercept-aamt 25 mg Solr [702435] Amount to Base Charge on: 125 mg Package: 1 Each Vial (49584-698-49) Charge Dropped: [phone] Bobbi: Concha Avendaño @ [facility] notified of cost and frequency of treatment. [...] hospice told them otherwise. Call placed to [facility]. Spoke w/ Concha, who confirms spouse's statement. Per Concha, they will cover all lab, transfusions, and treatment since Dr Hummel feels the pt has a less than 6 months prognosis w/ or w/o treatment. Pt's spouse notified of the above and verbalizes understanding. Will be in this afternoon as scheduled. Pharmacy/Clerical: MARII...... Angle Kamara RN documented in this encounter [facility] 11-20-2022 Instructions Asher Hummel MD - 11/20/2022 4:13 PM EDT Continue with Hospice Cancel treatment appointments Cancel appointments with [facility] RTC PRN Ok to get PRN transfusions based on symptoms. documented in this encounter [facility] 11-20-2022 History of Present illness Narrative [...] which included preparing to see the patient, ezys-sj-glrw patient care, completing clinical documentation, obtaining and/or reviewing separately obtained history, performing a medically appropriate examination, counseling and educating the patient/family/caregiver, communicating with other HCPs (not separately reported), independently interpreting results (not separately reported), communicating results to the patient/family/caregiver, and care coordination (not separately reported) Asher Hummel MD, CPE Hematology and Oncology Services Provided at: [place], [place] . documented in this encounter [facility] 11-20-2022 Nurse Note Patients would like to know if it is normal to get a blood transfusion in 4 hours? It used to be 8 hours now they are pushing it thru faster. Also could that result in fluid overload? Opal Campbell MA documented in this encounter [facility] 11-19-2022 Miscellaneous Notes Concha @ [facility] notified. Copy of this encounter along w/ office notes faxed to [phone]. Angle Kamara RN Yes - I agree Brynn: Pt was discharged from [facility] to home w/ [facility]. Hospice calls today regarding pt's transfusion needs. Notes that they can continue transfusing for symptom management if you believe that w/ or w/o treatment the pt would have a less than 6 month prognosis. Do you agree? Angle Kamara RN documented in this encounter [facility] 11-06-2022 Miscellaneous Notes Faxed orders to [place] scheduling and also left a message. Ada Perez Preliminary CBC shows hgb of 6.5. Transfusion orders written per Dr Hummel. Pt's spouse notified and verbalizes understanding. Orders given to MARII Caballero, for scheduling. Angle Kamara RN documented in this encounter [facility] 11-06-2022 Miscellaneous Notes Patient came in for lab draw this afternoon per spouse they did not want to stay wait for results, requested to have nurse call them with results. Please call patient and spouse at [phone]. Thank you. Emily Horan Pss documented in this encounter [facility] 10-24-2022 Miscellaneous Notes Patient has been scheduled for transfusion tomorrow @ [place] @ 8 am. He will need to go today for TSC. Call placed to patient/spouse no answer. Left detailed message with this information on voicemail. Ada Perez Pt's spouse calls requesting yesterday's CBC results. Hgb 7.4. Informed spouse that we would be ordering a blood transfusion to be done @ [facility]. Spouse verbalizes understanding. Transfusion orders signed per Dr Hummel and given to MARII Piedra, for scheduling. Angle Kamara RN documented in this encounter [facility] 10-23-2022 History of Present illness Narrative Went to lobby to inform pt of lab results and pt had already left. documented in this encounter [facility] 10-17-2022 Miscellaneous Notes [facility] Lab calls regarding transfusion order written on 10/16/22. Notes the H&H box must be marked. Per lab, the order they have has the box crossed out and NO marked next to it. Requesting we send a new order w/ the H&H box clearly marked. New order received from Dr Hummel and faxed to [facility] @ [phone]. Angle Kamara RN documented in this encounter [facility] 10-16-2022 History of Present illness Narrative Pt provided with CBC result from today per request. HgB 6.4. Transfusion orders rec'd from Dr Arias. Pt to PSS for scheduling of PRBC'S. Fide Puente RN documented in this encounter [facility] 10-15-2022 Nurse Note Clinical questionnaires incomplete due to Patient declined to complete or answer questions with nurse Additional intake questions: Has the patient had fever, nausea, vomiting, diarrhea, constipation, fatigue for > 1 week? Yes, fatigue and Provider Notified Does the patient have a decreased appetite? Yes Does patient want to see a Industrial Electrical Technician? No (yes to any of above refer [...] Clinic 10-15-2022 History of Present illness Narrative [place] [address] [place] CLINIC NOTE NAME: SANDIP BROUSSARD [facility] #: [id number] DATE: 10/15/2022 AGE: 81 PHYSICIAN: Kim López [...] clinic in 2 months. Kim López M.D. AA:[id number] / documented in this encounter [facility] 10-02-2022 Miscellaneous Notes 1 unit packed RBC's at [facility] 10-03-22 11am. Orders were faxed and they called the patient's documented in this encounter [facility] 09-25-2022 Miscellaneous Notes Pt's spouse calls requesting the results of his CBC from today. Hgb 6.9. Transfusion ordered per Dr Hummel. Spouse notified and will go to [facility] for type and screen. Transfusion orders given to Tello for scheduling. Angle Kamara RN documented in this encounter [facility] 09-18-2022 Instructions Asher Hummel MD - 09/18/2022 1:56 PM EST Continue luspatercept SQ today and q 3 weeks B12 shot today every 3 weeks Check CBC every Friday - stay for results Keep Hgb > 8 Check CMP every 3 weeks Recommended ensure/boost for increased calories. RTC in 3 weeks - see Wilfred documented in this encounter [facility] 09-18-2022 History of Present illness Narrative Images from the original note were not included. NAME: Sandip Broussard CLINIC NO.: [id number] DATE OF SERVICE: September 18, 2022 (Estephanie) [...] Epo usage. Unfortunately he suffered an acute [place]Y 11/23/2021 and also developed another GI bleed. [...] TET2 p.?, [id number], c.4182+1G>A VAF: 44.5% TET2 p.B5085B, [id number], c.5618T>C VAF: 40% ZRSR2 p.R30Vfs*8, NM_005089.3, [...] surgery w/ Dr. Hyde Last fall in [place]. Has tranexamic acid at home. Requesting ENT referral at [facility]. He is dehydrated and not keeping up with fluids. Ball Holder is elevated exacerbating cause was likely letting [...] Eliquis daily at the recommendation of his rehabilitation nurse. Since stopping the aspirin he has not [...] which included preparing to see the patient, tkes-ba-vzha patient care, completing clinical documentation, performing a medically appropriate examination, counseling and educating the patient/family/caregiver, ordering medications, tests, or procedures, communicating with other HCPs (not separately reported), independently interpreting results (not separately reported), and communicating results to the patient/family/caregiver. Asher Hummel MD, CPE Hematology and Oncology Services Provided at: [place], [place] CC: Dr. Flash Gomez (Cardiology [facility] Dr. Oumou López documented in this encounter [facility] 09-12-2022 Miscellaneous Notes Patient is called and scheduled Called [facility] waiting on a call back Pt's [...] RN documented in this encounter [facility] 09-04-2022 Miscellaneous Notes 2 units Packed RBC's at [facility] on Friday09-06-22 lab on . Orders and cbc were faxed to [facility].Patient has been notified documented in this encounter [facility] 08-28-2022 Instructions Asher Hummel MD - 08/28/2022 3:36 PM EST Start luspatercept SQ q 3 weeks Check CBC every Friday Keep gb > 8 Check CMP every 3 weeks Recommended ensure/boost for increased calories. RTC in 3 weeks documented in this encounter [facility] 08-28-2022 History of Present illness Narrative Images from the original note were not included. NAME: Sandip Broussard CLINIC NO.: [id number] DATE OF SERVICE: August 28, 2022 (Estephanie) [...] Epo usage. Unfortunately he suffered an acute [place] 11/23/2021 and also developed another GI bleed. [...] TET2 p.?, [id number], c.4182+1G>A VAF: 44.5% TET2 p.L9422J, [id number], c.5618T>C VAF: 40% ZRSR2 p.R30Vfs*8, NM_005089.3, [...] surgery w/ Dr. Hyde Last fall in [place]. Has tranexamic acid at home. Requesting ENT referral at [facility]. He is dehydrated and not keeping up with fluids. Ball Holder is elevated exacerbating cause was likely letting [...] Eliquis daily at the recommendation of his rehabilitation nurse. Since stopping the aspirin he has not [...] which included preparing to see the patient, lvyv-dv-ansx patient care, completing clinical documentation, performing a medically appropriate examination, counseling and educating the patient/family/caregiver, ordering medications, tests, or procedures, communicating with other HCPs (not separately reported), independently interpreting results (not separately reported), and communicating results to the patient/family/caregiver. Asher Hummel MD, CPE Hematology and Oncology Services Provided at: [place], [place] CC: Dr. Flash Gomez (Cardiology [facility] Dr. Oumou López documented in this encounter [facility] 08-27-2022 Miscellaneous Notes Patient is already scheduled for f/u and treatment on Friday, 08/28. Angle Kamara RN Ordering today should be here sometime tomorrow, I would schedule Monday 08/28 or after. Thank you Guillermo Gusman rPh Images from the original note were not included. Asher Hummel MD You; [facility] Pool 1 hour ago (6:23 AM) Ok great. When will we be able to start him? Pharmacy: Please advise on the above. Thanks! Angle Kamara RN FYI: Call received from [facility]. Pt's appeal for Luspatercept has been approved from 07/30/22-11/11/22. Authorization #: [id number]. An approval letter will be mailed to our office as well. Angle Kamara RN documented in this encounter [facility] 08-22-2022 Miscellaneous Notes [facility] Infusion Center has transfusion orders for pt. Notes his orders are for leuko reduced and irradiated cells. Per nurse, the pt has never received irradiated cells in the past. Pt's chart reviewed. Prior orders are unmarked or for leuko reduced only. Discussed w/ Dr Edmondson who orders to cancel the order for irradiated. Rosetta @ [facility] notified and verbalizes understanding. Asks that we fax the corrected order to [phone]. Order faxed as requested. Angle Sessler, RN documented in this encounter [facility] 08-21-2022 Miscellaneous Notes 2 units packed RBC's at [facility] on 08-22-22. Lab today. Order and cbc were faxed to central scheduling. documented in this encounter [facility] 08-21-2022 History of Present illness Narrative Images from the original note were not included. NAME: Sandip Broussard [facility] NO.: [id number] DATE OF SERVICE: August 21, 2022 (Michelle) [...] Epo usage. Unfortunately he suffered an acute [place] 11/23/2021 and also developed another GI bleed. [...] TET2 p.?, [id number], c.4182+1G>A VAF: 44.5% TET2 p.C3503I, [id number], c.5618T>C VAF: 40% ZRSR2 p.R30Vfs*8, NM_005089.3, [...] Transfuse periodically. Updated Visit, August 24, 2021: Llody returns today prior to Retacrit during his [...] surgery w/ Dr. Hyde Last fall in [place]. Has tranexamic acid at home. Requesting ENT referral at [facility]. He is dehydrated and not keeping up with fluids. Ball Holder is elevated exacerbating cause was likely letting [...] Eliquis daily at the recommendation of his rehabilitation nurse. Since stopping the aspirin he has not [...] Visit, June 15, 2020: Conducted by telephone. Sandpi Broussard is a 79 year old male [...] 09/17/2021 81 DIAGNOSIS: (D46.9) MDS (myelodysplastic syndrome) ([facility]) (primary encounter diagnosis) (N18.4, D63.1) Anemia of chronic renal failure, stage 4 (severe) ([facility]) (D50.0) Iron deficiency anemia due to chronic blood loss (N18.4) CRF (chronic renal failure), stage 4 (severe) ([facility]) (E83.111) 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 transfusions (N18.4) CKD (chronic kidney disease) stage 4, GFR 15-29 ml/min ([facility]) (I95.89, E86.1) Hypotension due to hypovolemia PAST MEDICAL HISTORY Diagnosis Date Anemia Anemia of chronic renal failure, stage 4 (severe) ([facility]) 08/23/2020 Atrial fibrillation (HCC) Chronic kidney disease CRF (chronic renal failure), stage 4 (severe) ([facility]) 08/23/2020 Diabetes mellitus ([facility]) GI bleed Hypertension Iron deficiency anemia due [...] APRN.CNP Hematology and Oncology Services Provided at: [place], [place] CC: Dr. Flash Gomez (Cardiology [facility] Dr. Oumou López I spent a total of 30 minutes on the date of the service which included preparing to see the patient, efvu-vx-kaev patient care, completing clinical documentation, obtaining and/or reviewing separately obtained history, performing a medically appropriate examination, counseling and educating the patient/family/caregiver, ordering medications, tests, or procedures, independently interpreting results (not separately reported), and communicating results to the patient/family/caregiver. documented in this encounter [facility] 08-14-2022 Miscellaneous Notes Orders faxed to [facility] lab. Savannah notified and confirms receipt. Angle Kamara RN Signed. Wilfred Martinez APRN.CNP [facility] is requesting an order for H&H. Order pended. Angle Kamara RN documented in this encounter [facility] 08-14-2022 Miscellaneous Notes Called and spoke [...] TY. documented in this encounter [facility] 08-14-2022 Miscellaneous Notes 2 units packed RBC's at [facility]. Left detailed message and faxed the order with [facility]bc. They will call the patient to schedule this appointment. documented in this encounter [facility] 08-14-2022 History of Present illness Narrative Images from the original note were not included. NAME: Sandip Broussard [facility] NO.: [id number] DATE OF SERVICE: August 14, 2022 (Michelle) [...] Epo usage. Unfortunately he suffered an acute [place] 11/23/2021 and also developed another GI bleed. [...] TET2 p.?, [id number], c.4182+1G>A VAF: 44.5% TET2 p.Y9197T, [id number], c.5618T>C VAF: 40% ZRSR2 p.R30Vfs*8, NM_005089.3, [...] his Lissette and was seen by Dr. Madnel approximately 1 week ago from ENT. Patient [...] surgery w/ Dr. Hyde Last fall in [place]. Has tranexamic acid at home. Requesting ENT referral at [facility]. He is dehydrated and not keeping up with fluids. Ball Holder is elevated exacerbating cause was likely letting [...] Eliquis daily at the recommendation of his rehabilitation nurse. Since stopping the aspirin he has not [...] No family history on file. Wilfred Martinez APRN.LINUX SUPPORT ENGINEER Hematology and Oncology Services Provided at: [place], [place] CC: Dr. Flash Gomez ([place] [facility]. Oumou López I spent a total of 30 minutes on the date of the service which included preparing to see the patient, woed-ni-cfob patient care, completing clinical documentation, obtaining and/or reviewing separately obtained history, performing a medically appropriate examination, counseling and educating the patient/family/caregiver, ordering medications, tests, or procedures, independently interpreting results (not separately reported), and communicating results to the patient/family/caregiver. documented in this encounter [facility] 08-13-2022 Miscellaneous Notes Addended by: ASHER HUMMEL on: 08/13/2022 06:04 PM Modules accepted: Orders Patient has an appt on 08/14/22. Would you like labs, if so place orders.Opal Campbell MA documented in this encounter [facility] 08-07-2022 Instructions Asher Hummel MD - 08/07/2022 3:54 PM EST Continue weekly low dose decitabine Await luspatercept approval Transfusion needed tomorrow/Friday, hgb 7.2 RTC in 1 week for labs and continue treatment. Decitabine Retacrit Recommended ensure/boost for increased calories documented in this encounter [facility] 08-07-2022 History of Present illness Narrative Images from the original note were not included. NAME: Sandip Broussard CLINIC NO.: [id number] DATE OF SERVICE: August 07, 2022 (Estephanie) [...] Epo usage. Unfortunately he suffered an acute [place] 11/23/2021 and also developed another GI bleed. [...] TET2 p.?, [id number], c.4182+1G>A VAF: 44.5% TET2 p.L5873T, [id number], c.5618T>C VAF: 40% ZRSR2 p.R30Vfs*8, NM_005089.3, [...] surgery w/ Dr. Hyde Last fall in [place]. Has tranexamic acid at home. Requesting ENT referral at [facility]. He is dehydrated and not keeping up with fluids. Ball Holder is elevated exacerbating cause was likely letting [...] Eliquis daily at the recommendation of his rehabilitation nurse. Since stopping the aspirin he has not [...] which included preparing to see the patient, tdnx-vb-jxdh patient care, completing clinical documentation, obtaining and/or reviewing separately obtained history, performing a medically appropriate examination, counseling and educating the patient/family/caregiver, ordering medications, tests, or procedures, communicating with other HCPs (not separately reported), and independently interpreting results (not separately reported). Asher Hummel MD, CPE Hematology and Oncology Services Provided at: [place], [place] CC: Dr. Flash Gomez (Card[place] [facility] Dr. Oumou López documented in this encounter [facility] 07-30-2022 History of Present illness Narrative Images from the original note were not included. NAME: Sandip Broussard NO.: [id number] DATE OF SERVICE: July 30, 2022 (Lori [...] Epo usage. Unfortunately he suffered an acute [place] 11/23/2021 and also developed another GI bleed. [...] TET2 p.?, [id number], c.4182+1G>A VAF: 44.5% TET2 p.L7949P, [id number], c.5618T>C VAF: 40% ZRSR2 p.R30Vfs*8, NM_005089.3, [...] surgery w/ Dr. Hyde Last fall in [place]. Has tranexamic acid at home. Requesting ENT referral at [facility]. He is dehydrated and not keeping up with fluids. Ball Holder is elevated exacerbating cause was likely letting [...] Eliquis daily at the recommendation of his rehabilitation nurse. Since stopping the aspirin he has not [...] Sandoval PA-C CC: Dr. Flash Gomez (Card[place] [facility]. Oumou López documented in this encounter [facility] 07-25-2022 Miscellaneous Notes Pt's notified that pt did not receive Retacrit injection on 07/23. [facility], pt is being changed to Luspatercept due to not responding to Retacrit. Pts notified and verbalizes understanding. Pt will receive Luspatercept once approved by insurance. Miriam Elizabeth RN documented in this encounter [facility] 07-24-2022 Miscellaneous Notes [facility] called a critical HCT 22.2. Pt is scheduled for PRBC transfusion. They are faxing labs to scan into his chart. BRYNN: Please advise of any new orders Thank you, Fide documented in this encounter [facility] 07-23-2022 Miscellaneous Notes Orders received for 1 unit and 2 units of PRBC's. Confirmed with Dr. Hummel who stated 2 units. Call placed to [facility] and had to leave a message to schedule patient for transfusion on . Ada Perez documented in this encounter [facility] 07-23-2022 Instructions Asher Hummel MD - 07/23/2022 2:54 PM EST Continue low dose decitabine weekly x (Friday') Luspatercept when approved q 21 days. Retacrit today and weekly for Hgb < 12 RTC with 1 week on 07/30/2022 Labs same day. See Wilfred Transfuse this at [facility] x 1 unit documented in this encounter [facility] 07-23-2022 History of Present illness Narrative Images from the original note were not included. NAME: Sandip Broussard CLINIC NO.: [id number] DATE OF SERVICE: July 23, 2022 (Estephanie) [...] Epo usage. Unfortunately he suffered an acute [place] 11/23/2021 and also developed another GI bleed. [...] TET2 p.?, [id number], c.4182+1G>A VAF: 44.5% TET2 p.M3103D, [id number], c.5618T>C VAF: 40% ZRSR2 p.R30Vfs*8, NM_005089.3, c.88delC VAF: 91.1% And the following variant(s) of uncertain significance: BCORL1 p.R72W NM_021946.4: c.214C>T VAF: 100% PLAN: Continue low dose decitabine weekly x (Friday') Luspatercept when approved q 21 days. Retacrit today and weekly for Hgb < 12 RTC with 1 week on 07/30/2022 Labs same day. See Wilfred Transfuse this at [facility] x 1 unit TREATMENT TO [...] surgery w/ Dr. Hyde Last fall in [place]. Has tranexamic acid at home. Requesting ENT referral at [facility]. He is dehydrated and not keeping up with fluids. Ball Holder is elevated exacerbating cause was likely letting [...] Eliquis daily at the recommendation of his rehabilitation nurse. Since stopping the aspirin he has not [...] which included preparing to see the patient, ysxm-bg-icdc patient care, completing clinical documentation, obtaining and/or reviewing separately obtained history, performing a medically appropriate examination, counseling and educating the patient/family/caregiver, ordering medications, tests, or procedures, communicating with other HCPs (not separately reported), independently interpreting results (not separately reported), and communicating results to the patient/family/caregiver. Asher Hummel MD, CPE Hematology and Oncology Services Provided at: [place], [place] CC: Dr. Flash Gomez (Card[place] [facility]. Oumou López documented in this encounter [facility] 07-18-2022 Miscellaneous Notes Pt's spouse notified [...] RN documented in this encounter [facility] 07-16-2022 Nurse Note Additional intake questions: Has the patient had fever, nausea, vomiting, diarrhea, constipation, fatigue for > 1 week? Yes, diarrhea ( 1 times in last 24 hours), fatigue, SOB, and Provider Notified Does the patient have a decreased appetite? No Does patient want to see a Industrial Electrical Technician? No (yes to any of above refer [...] LPN documented in this encounter [facility] 07-16-2022 History of Present illness Narrative [place] [address] [place] CLINIC NOTE NAME: SANDIP BROUSSARD CLINIC #: [id number] DATE: 07/16/2022 AGE: 81 PHYSICIAN: Kim López [...] data presented at the national annual meeting [place] [employer] 2021 has demonstrated a [...] locally in the interim Kim López M.D. AA:[id number] /[id number] documented in this encounter [facility] 07-15-2022 Miscellaneous Notes 1 unit packed RBC's at [facility] on 07-18-22 10am. Lab on Friday07-16-22 11am. Orders and cbc were faxed to [facility]. documented in this encounter [facility] 07-15-2022 Instructions Asher Hummel MD - 07/15/2022 2:56 PM EST Continue low dose decitabine weekly x 2 days (Friday and Friday normally) This week plan second dose on with labs Retacrit today and weekly for Hgb < 12 RTC with 1 week on 07/23/2022 Labs same day. Transfuse on at [facility] documented in this encounter [facility] 07-15-2022 History of Present illness Narrative Images from the original note were not included. NAME: Sandip Broussard CLINIC NO.: [id number] DATE OF [facility]ICE: [facility] Some elements in this clinic note that [...] Epo usage. Unfortunately he suffered an acute [place] 11/23/2021 and also developed another GI bleed. [...] TET2 p.?, [id number], c.4182+1G>A VAF: 44.5% TET2 p.S9059I, [id number], c.5618T>C VAF: 40% ZRSR2 p.R30Vfs*8, NM_005089.3, [...] 07/23/2022 Labs same day. Transfuse on at [facility] x 1 unit TREATMENT TO DATE: 4. 05/20/2022 - Low dose Decitabine weekly. 3. 07/09/2021 - 04/08/2022: Vidaza D1-5 q 28. 2. Retacrit 80,000 units every week. 1. Intermittent IV Iron. HPI: Updated Visit, July 15, 2022: Lloyd is back with [facility]. He has had no real change clinically. [...] shortness of breath. Has appointment with Dr. Lóepz next week. Updated Visit, July 01, 2022: [...] surgery w/ Dr. Hyde Last fall in [place]. Has tranexamic acid at home. Requesting ENT referral at [facility]. He is dehydrated and not keeping up with fluids. Ball Holder is elevated exacerbating cause was likely letting [...] Eliquis daily at the recommendation of his rehabilitation nurse. Since stopping the aspirin he has not [...] which included preparing to see the patient, fhrm-lh-pnkf patient care, completing clinical documentation, obtaining and/or reviewing separately obtained history, performing a medically appropriate examination, counseling and educating the patient/family/caregiver, ordering medications, tests, or procedures, communicating with other HCPs (not separately reported), independently interpreting results (not separately reported), and communicating results to the patient/family/caregiver. Asher Hummel MD, CPE Hematology and Oncology Services Provided at: [place], [place] CC: Dr. Flash Gomez (Card[place] [facility] Dr. Oumou López documented in this encounter [facility] 07-11-2022 Miscellaneous Notes Yes. 2 units ordered per Radha on 07/08/22. Angle Kamara RN ----- Message from Asher Hummel MD sent at 07/09/2022 8:04 PM EST ----- Did we transfuse? documented in this encounter [facility] 07-08-2022 Miscellaneous Notes Haydee called stating she will call patient's to get him set up. Ada Perez Left message w/ [place] scheduling to get patient set up for transfusion. Ada Perez documented in this encounter [facility] 07-08-2022 History of Present illness Narrative Images from the original note were not included. NAME: Sandip Broussard [facility] NO.: [id number] DATE OF SERVICE: July 08, 2022 (Estephanie) [...] Epo usage. Unfortunately he suffered an acute [place] 11/23/2021 and also developed another GI bleed. [...] TET2 p.?, [id number], c.4182+1G>A VAF: 44.5% TET2 p.M3460O, [id number], c.5618T>C VAF: 40% ZRSR2 p.R30Vfs*8, NM_005089.3, [...] surgery w/ Dr. Hyde Last fall in [place]. Has tranexamic acid at home. Requesting ENT referral at [facility]. He is dehydrated and not keeping up with fluids. Ball Holder is elevated exacerbating cause was likely letting [...] Eliquis daily at the recommendation of his rehabilitation nurse. Since stopping the aspirin he has not [...] is unresponsive. Updated visit, July 26, 2020: lLoyd is 79 years old and returns with [...] Sandoval PA-C CC: Dr. Flash Gomez (Cardiology [facility] Dr. Oumou López documented in this encounter [facility] 07-01-2022 Miscellaneous Notes Addended by: ASHER HUMMEL on: 07/01/2022 03:13 PM Modules accepted: Orders documented in this encounter [facility] 07-01-2022 Instructions Asher Hummel MD - 07/01/2022 2:38 PM EST Continue low dose decitabine weekly x 2 days (Friday and Friday) Retacrit today and weekly for Hgb < 12 RTC with Wilfred Garcia in 1 week Labs same day. documented in this encounter [facility] 07-01-2022 History of Present illness Narrative Images from the original note were not included. NAME: Sandip Broussard CLINIC NO.: [id number] DATE OF SERVICE: July 01, 2022 (Estephanie) [...] Epo usage. Unfortunately he suffered an acute [place] 11/23/2021 and also developed another GI bleed. [...] TET2 p.?, [id number], c.4182+1G>A VAF: 44.5% TET2 p.F9036D, [id number], c.5618T>C VAF: 40% ZRSR2 p.R30Vfs*8, NM_005089.3, [...] surgery w/ Dr. Hyde Last fall in [place]. Has tranexamic acid at home. Requesting ENT referral at [facility]. He is dehydrated and not keeping up with fluids. Ball Holder is elevated exacerbating cause was likely letting [...] Eliquis daily at the recommendation of his rehabilitation nurse. Since stopping the aspirin he has not [...] which included preparing to see the patient, anjr-wj-tcsr patient care, completing clinical documentation, performing a medically appropriate examination, counseling and educating the patient/family/caregiver, ordering medications, tests, or procedures, and independently interpreting results (not separately reported). Asher Hummel MD, CPE Hematology and Oncology Services Provided at: [place], [place] CC: Dr. Flash Gomez (Card[place] [facility] Dr. Oumou López documented in this encounter [facility] 06-24-2022 History of Present illness Narrative Patient to get a transfusion per Amy. Lexi Velasquez RN documented in this encounter [facility] 06-24-2022 History of Present illness Narrative Images from the original note were not included. NAME: Sandip Broussard CLINIC NO.: [id number] DATE OF SERVICE: June 24, 2022 (Michelle) [...] Epo usage. Unfortunately he suffered an acute [place] 11/23/2021 and also developed another GI bleed. [...] TET2 p.?, [id number], c.4182+1G>A VAF: 44.5% TET2 p.F9884H, NM_[id number], c.5618T>C VAF: 40% ZRSR2 p.R30Vfs*8, NM_005089.3, c.88delC VAF: 91.1% And the following variant(s) of uncertain significance: BCORL1 p.R72W NM_021946.4: c.214C>T VAF: 100% PLAN: Continue low dose decitabine weekly x 2 days (Friday and Friday) Retacrit today and weekly for Hgb < 12 Transfuse 2 unit PRBCs for Hgb < 8.5 (This week on Friday @ [facility] please) Follow up in 1 [...] surgery w/ Dr. Hyde Last fall in [place]. Has tranexamic acid at home. Requesting ENT referral at [facility]. He is dehydrated and not keeping up with fluids. Ball Holder is elevated exacerbating cause was likely letting [...] Eliquis daily at the recommendation of his rehabilitation nurse. Since stopping the aspirin he has not [...] APRN.CNP Hematology and Oncology Services Provided at: [place], [place] CC: Dr. Flash Gomez (Card[place] [facility] Dr. Oumou López I spent a total of 30 minutes on the date of the service which included preparing to see the patient, mfnx-qp-yoft patient care, completing clinical documentation, obtaining and/or reviewing separately obtained history, performing a medically appropriate examination, counseling and educating the patient/family/caregiver, ordering medications, tests, or procedures, independently interpreting results (not separately reported), and communicating results to the patient/family/caregiver. documented in this encounter [facility] 06-17-2022 Miscellaneous Notes 1 unit packed RBC's at [facility] on Fri06-19-22 9am. Patient to do his lab on Friday06-17-22. documented in this encounter [facility] 06-17-2022 Instructions Asher Hummel MD - 06/17/2022 10:40 AM EST Continue low dose decitabine weekly x 2 days (Fri, Fri) Retacrit today and weekly for Hgb < 12 Transfuse 2 unit PRBCs for Hgb < 8.5 (this week on Friday @ [facility] please) Labs again once / week here RTC in 1 weeks - with labs - see Michelle documented in this encounter [facility] 06-17-2022 History of Present illness Narrative Images from the original note were not included. NAME: Sandip Broussard CLINIC NO.: [id number] DATE OF SERVICE: June 17, 2022 (Estephanie) Some elements in this clinic note that are critical to medical decision making have been carefully reviewed and included from a prior clinic note dated: June 10, 2022 (Radha Sandoval PA-C) Referring Provider: Dr. Flash Pearl Additional Clinicians involved in Sandpi Broussard's care: Dr. José Luis Velasquez, Dr. [...] Epo usage. Unfortunately he suffered an acute [place] 11/23/2021 and also developed another GI bleed. [...] TET2 p.?, [id number], c.4182+1G>A VAF: 44.5% TET2 p.K4726H, [id number], c.5618T>C VAF: 40% ZRSR2 p.R30Vfs*8, NM_005089.3, c.88delC VAF: 91.1% And the following variant(s) of uncertain significance: BCORL1 p.R72W NM_021946.4: c.214C>T VAF: 100% PLAN: Continue low dose decitabine weekly x 2 days (Mon, Fri) Retacrit today and weekly for Hgb < 12 Transfuse 2 unit PRBCs for Hgb < 8.5 (this week on Friday @ [facility] please) Labs again once / [...] surgery w/ Dr. Hyde Last fall in [place]. Has tranexamic acid at home. Requesting ENT referral at [facility]. He is dehydrated and not keeping up with fluids. Ball Holder is elevated exacerbating cause was likely letting [...] Eliquis daily at the recommendation of his rehabilitation nurse. Since stopping the aspirin he has not [...] which included preparing to see the patient, zeev-pt-izvp patient care, completing clinical documentation, performing a medically appropriate examination, counseling and educating the patient/family/caregiver, ordering medications, tests, or procedures, and independently interpreting results (not separately reported). Asher Hummel MD, CPE Hematology and Oncology Services Provided at: [place], [place] CC: Dr. Flash Gomez (Card[place] [facility] MD Kim Merlos MD documented in this encounter [facility] 06-10-2022 History of Present illness Narrative NAME: Sandip Broussard CLINIC NO.: [id number] DATE OF SERVICE: June 10, 2022 (Radha [...] Epo usage. Unfortunately he suffered an acute [place] 11/23/2021 and also developed another GI bleed. [...] TET2 p.?, [id number], c.4182+1G>A VAF: 44.5% TET2 p.G1048M, NM_[id number], c.5618T>C VAF: 40% ZRSR2 p.R30Vfs*8, NM_005089.3, [...] surgery w/ Dr. Hyde Last fall in [place]. Has tranexamic acid at home. Requesting ENT referral at [facility]. He is dehydrated and not keeping up with fluids. Ball Holder is elevated exacerbating cause was likely letting [...] Eliquis daily at the recommendation of his rehabilitation nurse. Since stopping the aspirin he has not [...] follow ups. Updated Visit, August 23, 2020: Llody is 79 years old and returns with [...] Sandoval PA-C CC: Dr. Flash Gomez (Card[place] [facility] MD Kim Merlos MD documented in this encounter [facility] 06-10-2022 Nurse Note Clinical questionnaires incomplete due to Nurse was Interrupted by provider during rooming process QNR not working. Showing an error. Ksenia Mohan documented in this encounter [facility] 06-07-2022 Miscellaneous Notes Per pt's chart, he is scheduled to receive 2 units RBC's at [facility] today. Angel Kamara RN Wade from [facility] lab called with critical results on patient. HBG 7.7 HCT 23.0(critical result) Jozef Mohan RN documented in this encounter [facility] 06-03-2022 Miscellaneous Notes 2 units packed RBC's at [facility] on Fri06-05-22 9am. Lab on Friday before noon. Order and cbc were faxed to [facility] documented in this encounter [facility] 06-03-2022 Instructions Asher Hummel MD - 06/03/2022 1:55 PM EST Continue low dose decitabine weekly x 2 days (Fri, Fri) Retacrit today and weekly for Hgb < 12 Transfuse 2 unit PRBCs for Hgb < 8.5 (this week on Friday @ [facility] please) Labs again once / week here Recheck H/H this Friday at [facility] and transfuse again if Hgb < 8.5 RTC in 1 weeks - with labs - see Wilfred documented in this encounter [facility] 06-03-2022 History of Present illness Narrative Images from the original note were not included. NAME: Sandip Broussard [facility] NO.: [id number] DATE OF SERVICE: June 03, 2022 (Estephanie) [...] Epo usage. Unfortunately he suffered an acute [place] 11/23/2021 and also developed another GI bleed. [...] < 8.5 (this week on Friday @ [facility] please) Labs again once / week here Recheck H/H this Friday at [facility] and transfuse again if Hgb [...] surgery w/ Dr. Hyde Last fall in [place]. Has tranexamic acid at home. Requesting ENT referral at [facility]. He is dehydrated and not keeping up with fluids. Ball Holder is elevated exacerbating cause was likely letting [...] Eliquis daily at the recommendation of his rehabilitation nurse. Since stopping the aspirin he has not [...] which included preparing to see the patient, ajva-dj-klnr patient care, completing clinical documentation, obtaining and/or reviewing separately obtained history, performing a medically appropriate examination, counseling and educating the patient/family/caregiver, ordering medications, tests, or procedures, communicating with other HCPs (not separately reported), and independently interpreting results (not separately reported). Asher Hummel MD, CPE Hematology and Oncology Services Provided at: [place], [place] CC: Dr. Flash Gomez ([place] [facility] [place] MD Kim Merlos MD documented in this encounter [facility] 05-23-2022 Miscellaneous Notes CYCLE 1/DAY 1 [...] RN documented in this encounter [facility] 05-20-2022 Miscellaneous Notes The following approved [...] hours as needed. Authorizing Provider: WILFRED MARTINEZ APRN.LINUX SUPPORT ENGINEER Scripts pended for antiemetics. Please review and approve. Thanks! Angle Kamara RN documented in this encounter [facility] 05-20-2022 Miscellaneous Notes 1 unit packed RBC's at [facility] on Friday05-24-22 at 9am. Lab on anytime before noon. Patient and are aware of this appt. documented in this encounter [facility] 05-20-2022 Instructions Asher Hummel MD - 05/20/2022 2:40 PM EDT Start low dose decitabine weekly x 2 days (M, T) Retacrit today and weekly for Hgb < 12 Labs once / week RTC in 2 weeks Transfuse 1 unit PRBCs for Hgb < 8.5 (this week on @ [facility] please) documented in this encounter [facility] 05-20-2022 History of Present illness Narrative Images from the original note were not included. NAME: Sandip Broussard [facility] NO.: [id number] DATE OF SERVICE: May 20, 2022 ([facility]stephanie) Some elements in this clinic note that are critical to medical decision making have been carefully reviewed and included from a prior clinic note dated: May 06, 2022 (Estephanie) Referring Provider: Dr. Flash Pearl Additional Clinicians involved in Sandip Broussard's care: Dr. José Luis Velasquez, Dr. Oumou Mandle CC: Follow up ASSESSMENT: 81 year old [...] Epo usage. Unfortunately he suffered an acute [place] 11/23/2021 and also developed another GI bleed. [...] Hgb < 8.5 (this week on @ [facility] please) TREATMENT TO DATE: 4. [...] surgery w/ Dr. Hyde Last fall in [place]. Has tranexamic acid at home. Requesting ENT referral at [facility]. He is dehydrated and not keeping up with fluids. Ball Holder is elevated exacerbating cause was likely letting [...] Eliquis daily at the recommendation of his rehabilitation nurse. Since stopping the aspirin he has not [...] which included preparing to see the patient, xmji-tz-ajhu patient care, completing clinical documentation, obtaining and/or reviewing separately obtained history, performing a medically appropriate examination, counseling and educating the patient/family/caregiver, ordering medications, tests, or procedures, communicating with other HCPs (not separately reported), and independently interpreting results (not separately reported). Asher Hummel MD, CPE Hematology and Oncology Services Provided at: [place], [place] CC: Dr. Flash Gomez (Card[place] [facility] [place] MD Kim Merlos MD documented in this encounter [facility] 05-20-2022 Nurse Note Patient is interested in getting Flu shot. Opal Campbell MA documented in this encounter [facility] 05-14-2022 Miscellaneous Notes Appointment scheduled & confirmed with pt's spouse. Per secure chat from Dr Hummel: hello - I'd like Don to start Dacogen on Friday will need education as well as consent. Thank you. Clerical: Please schedule. Pharmacy: [facility]... Angle Kamara, RN documented in this encounter [facility] 05-06-2022 Miscellaneous Notes Patient will get TSC tomorrow at [place] between 6:30 and 5 pm (outpatient lab hours) Tranfusion is scheduled for Friday, 05/08 @ 12:00 pm. Ada Perez documented in this encounter [facility] 05-06-2022 Instructions Asher Hummel MD - 05/06/2022 4:30 PM EDT Retacrit today and weekly for Hgb < 12 Labs once / week RTC in 2 weeks Transfuse 1 unit PRBCs for Hgb < 8.5 documented in this encounter [facility] 05-06-2022 History of Present illness Narrative Images from the original note were not included. NAME: Sandip Broussard CLINIC NO.: [id number] DATE OF SERVICE: May 06, 2022 ([facility]) Some elements in this clinic note that [...] Epo usage. Unfortunately he suffered an acute [place] 11/23/2021 and also developed another GI bleed. [...] surgery w/ Dr. Hyde Last fall in [place]. Has tranexamic acid at home. Requesting ENT referral at [facility]. He is dehydrated and not keeping up with fluids. Ball Holder is elevated exacerbating cause was likely letting [...] Eliquis daily at the recommendation of his rehabilitation nurse. Since stopping the aspirin he has not [...] which included preparing to see the patient, yfgy-sg-[id number] patient care, completing clinical documentation, obtaining and/or reviewing separately obtained history, performing a medically appropriate examination, counseling and educating the patient/family/caregiver, ordering medications, tests, or procedures, communicating with other HCPs (not separately reported), and independently interpreting results (not separately reported). Asher Hummel MD, CPE Hematology and Oncology Services Provided at: [place], [place] CC: Dr. Flash Gomez (Card[place] [facility] [place] [place] MD Kim Merlos MD documented in this encounter [facility] 04-29-2022 Miscellaneous Notes Lucero Santiago calling from [facility]. States that they received pt's specimen. Needs to clarify if this is bone marrow or peripheral blood. Per Nicki Aguila in lab, bone marrow aspirate was submitted to [facility]. Lucero notified of the above and verbalizes understanding. No additional questions noted. Angle Kamara RN documented in this encounter [facility] 04-29-2022 History of Present illness Narrative Pt is unable to receive retacrit today d/t it not being authorized by insurance since it has only been 7 days. Per pharmacy. Pharmacy requesting to get retacrit authorized weekly. Pt made aware. Will keep next appointment. documented in this encounter [facility] 04-29-2022 Instructions Asher Hummel MD - 04/29/2022 1:07 PM EDT Retacrit today and weekly for Hgb < 12 RTC in 1 week, labs and review BMBx results. documented in this encounter [facility] 04-29-2022 History of Present illness Narrative Images from the original note were not included. NAME: Sandip Broussard CLINIC NO.: [id number] DATE OF SERVICE: April 29, 2022 (Estephanie) [...] Epo usage. Unfortunately he suffered an acute [place] 11/23/2021 and also developed another GI bleed. [...] surgery w/ Dr. Hyde Last fall in [place]. Has tranexamic acid at home. Requesting ENT referral at [facility]. He is dehydrated and not keeping up with fluids. Ball Holder is elevated exacerbating cause was likely letting [...] Eliquis daily at the recommendation of his rehabilitation nurse. Since stopping the aspirin he has not [...] which included preparing to see the patient, hppy-kr-bioe patient care, obtaining and/or reviewing separately obtained history, ordering medications, tests, or procedures, and independently interpreting results (not separately reported). Asher Hummel MD, CPE Hematology and Oncology Services Provided at: [place], [place] CC: Dr. Flash Gomez (Card[place] [facility] [place] MD Kim Merlos MD documented in this encounter [facility] 04-25-2022 History of Present illness Narrative [...] Hummel MD Personnel present: Asher Hummel MD, orthodontic laboratory technician. Bone marrow aspiration: Unilateral was obtained. Bone [...] Hematology/Oncology documented in this encounter [facility] 04-23-2022 Miscellaneous Notes signed Brynn/Wilfred: Order for Foundation One Heme pended ([facility] test[place] Angle Kamara, RN Patient coming in on for bone marrow biopsy. Dr. López recommended hemotologic NGS testing. Can you please pend that for Dr. Hummel to sign and make sure he gets it drawn when here for bmbx? Thanks. Radha Sandoval PA-C documented in this encounter [facility] 04-18-2022 Nurse Note Additional intake questions: Has the patient had fever, nausea, vomiting, diarrhea, constipation, fatigue for > 1 week? Yes, fatigue and Provider Notified Does the patient have a decreased appetite? No Does patient want to see a Industrial Electrical Technician? No (yes to any of above refer patient to schedulers for dietitian appointment) ) Does patient have any new or increased numbness or tingling of extremities? No Is patient interested in fertility information? No Does patient need any prescription refills? No Does patient have an advanced directive in place? Yes, no copy found in [facility] Patient referred to [facility] Electronically Signed By: Matt Christianson LPN documented in this encounter [facility] 04-18-2022 History of Present illness Narrative [place] [id number] [place] CLINIC NOTE NAME: SANDIP BROUSSARD CLINIC #: [id number] DATE: 04/18/2022 AGE: 81 PHYSICIAN: Kim López [...] 1 son who works as a senior [employer] specialist at [facility]. He had a big family of 10. 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 Kim López M.D. KAILEY:[id number] /[id number] documented in this encounter [facility] 04-15-2022 Miscellaneous Notes Discussed w/ Wilfred. [...] [facility] on . It would be too long of a day too far from home. They [facility] a blood [facility]. They are concerned that patient may drop further prior to and want a transfusion if needed before appointment. Please advise and set up transfusion at [place] and call pt if needed. Thank you. documented in this encounter [facility] 04-15-2022 Nurse Note Labs reviewed with patient and questions answers/discussion about possible transfusion. See telephone encounter. documented in this encounter [facility] 04-08-2022 Instructions Asher Hummel MD - 04/08/2022 3:14 PM EDT Labs on Friday Transfuse if Hgb is 7.0 or patient is symptomatic Aranesp and B12 today Keep appointment with Dr. López 04/18/2022 RTC in 2 weeks with labs same day. documented in this encounter [facility] 04-08-2022 History of Present illness Narrative Images from the original note were not included. NAME: Sandip Broussard CLINIC NO.: [id number] DATE OF SERVICE: April 08, 2022 Some [...] Epo usage. Unfortunately he suffered an acute [place] 11/23/2021 and also developed another GI bleed. [...] surgery w/ Dr. Hyde Last fall in [place]. Has tranexamic acid at home. Requesting ENT referral at [facility]. He is dehydrated and not keeping up with fluids. Ball Holder is elevated exacerbating cause was likely letting [...] Eliquis daily at the recommendation of his rehabilitation nurse. Since stopping the aspirin he has not [...] follow ups. Updated Visit, August 23, 2020: Llyod is 79 years old and returns with [...] which included preparing to see the patient, gjje-xw-aewp patient care, completing clinical documentation, performing a medically appropriate examination, counseling and educating the patient/family/caregiver, ordering medications, tests, or procedures, and communicating with other HCPs (not separately reported). Asher Hummel MD, CPE Hematology and Oncology Services Provided at: [place], [place] CC: Dr. Flash Gomez ([place] [facility] [place] MD Kim Merlos MD documented in this encounter [facility] 04-03-2022 Miscellaneous Notes Discussed with Dr Arias. No additional orders. Fide Puente, RN Critical lab called Hgb 6.9/Hct 21.8. Pt has 2 units PRBC's ordered and I called and spoke to Rosetta at the [facility] infusion center and he is schedule for infusion of units at 0800 04/04/22. Note Hgb 7.0 HM/BRYNN: any further instructions? Fide Puente RN documented in this encounter [facility] 04-02-2022 Miscellaneous Notes 2 units packed RBC S at [facility] on 04-04-. 9am. Patient is going for lab draw on 04-03. Around noon documented in this encounter [facility] 04-02-2022 Miscellaneous Notes Transfusion orders signed per Wilfred and forwarded to MARII Puga, for scheduling. Angle Kamara RN Today's hgb 7. Pt's spouse notified and verbalizes understanding. Notes the pt c/o increased fatigue and weakness. Do you want to transfuse? Angle Kamara RN Pt requesting lab results be called to his spouse, Lissette [phone] when available. Thanks! documented in this encounter [facility] 03-21-2022 Miscellaneous Notes Don is scheduled [...] your office call the cancer answer line-- [phone]-- since I am not sure how these [...] appreciated. documented in this encounter [facility] 03-19-2022 Miscellaneous Notes Pt's calls for yesterday's hgb results. Results reviewed w/ pt's spouse. Spouse verbalizes understanding. Denies any further questions at this time. Angle Kamara RN documented in this encounter [facility] 03-18-2022 Miscellaneous Notes Message left for pt to call our office back regarding lab results. Paris Jerry RN Patient is here for lab draw. Patient and spouse have asked us to send message to have someone call them today with the results. Thank you! Emily Horan Pss documented in this encounter [facility] 03-18-2022 Miscellaneous Notes Emailed cancer answer [...] appreciated. documented in this encounter [facility] 03-11-2022 Miscellaneous Notes 2 units packed RBC's at [facility] on Friday03-12-22 8am. Lab today. Orders were faxed documented in this encounter [facility] 03-11-2022 Instructions Asher Hummel MD - 03/11/2022 2:54 PM EDT 1. Proceed with C9 Vidaza D1-5 2. Transfuse in [facility] this week 1 unit 3. Continue Retacrit q 2 weeks - labs every weeks 4. RTC in 4 weeks for C10 Vidaza 5. Discuss with Dr. López. documented in this encounter [facility] 03-11-2022 History of Present illness Narrative Images from the original note were not included. NAME: Sandip Broussard [facility] NO.: [id number] DATE OF SERVICE: March 11, 2022 Some [...] Epo usage. Unfortunately he suffered an acute [place] 11/23/2021 and also developed another GI bleed. [...] surgery w/ Dr. Hyde Last fall in [place]. Has tranexamic acid at home. Requesting ENT referral at [facility]. He is dehydrated and not keeping up with fluids. Ball Holder is elevated exacerbating cause was likely letting [...] Eliquis daily at the recommendation of his rehabilitation nurse. Since stopping the aspirin he has not [...] which included preparing to see the patient, yvkg-is-hzng patient care, completing clinical documentation, performing a medically appropriate examination, counseling and educating the patient/family/caregiver, ordering medications, tests, or procedures, and communicating with other HCPs (not separately reported). Asher Hummel MD, CPE Hematology and Oncology Services Provided at: [place], [place] CC: Dr. Flash Gomez (Card[place] [facility] Dr. Oumou Cho MD documented in this encounter [facility] 02-28-2022 Miscellaneous Notes Patient has been scheduled for transfusion at [place] on 03/01 @ 8:00 am. Faxed orders to [place] Scheduling. He will get TSC today. Ada Perez documented in this encounter [facility] 02-25-2022 History of Present illness Narrative Dr. Hummel aware of pt hgb 7.1 and his reports of feeling fatigue, lighteaded. Retacrit given; Pt to come back in to office on for CBC. Patient agrees with plan and scheduled appointment. documented in this encounter [facility] 02-11-2022 History of Present illness Narrative Images from the original note were not included. NAME: Sandip Broussard [facility] NO.: [id number] DATE OF SERVICE: February 11 2022 ([employer] [...] Epo usage. Unfortunately he suffered an acute [place] 11/23/2021 and also developed another GI bleed. [...] surgery w/ Dr. Hyde Last fall in [place]. Has tranexamic acid at home. Requesting ENT referral at [facility]. He is dehydrated and not keeping up with fluids. Ball Holder is elevated exacerbating cause was likely letting [...] Eliquis daily at the recommendation of his rehabilitation nurse. Since stopping the aspirin he has not [...] Sandoval PA-C CC: Dr. Flash Gomez (Card[place] [facility]. Oumou Cho MD documented in this encounter [facility] 02-04-2022 Miscellaneous Notes [facility] lab calls w/ critical lab results: Hgb 6.8 Hct 21.1 Pt identifiers and results read back for verification. Pt scheduled for 2 units RBCs tomorrow, 02/05. Angle Kamara RN documented in this encounter [facility] 02-04-2022 Miscellaneous Notes 2 units packed RBC's at [facility] on 02-05 8am. He is stopping for lab draw today. Orders and cbc were faxed to [facility]. documented in this encounter [facility] 02-04-2022 History of Present illness Narrative VS taken. States he is here because he feels very fatigued and slightly more short of breath. Wants to f/u with his hgb from this am. Hgb 6.8. Dr. Hummel made aware of results and assessment. Pt will be receiving order for a transfusion and Informed of plan. Pt agrees. documented in this encounter [facility] 01-30-2022 History of Present illness Narrative Pt denies need for transfusion today, states he will call if his symptoms get worse. Miriam Elizabeth RN documented in this encounter [facility] 01-21-2022 History of Present illness Narrative Cr 1.[address] Watt. Pt given 500 mls NS. documented in this encounter [facility] 01-18-2022 History of Present illness Narrative Repeat Cr 2.[address] Watt by lead rn gilson Elizabeth. Pt will receive 1 L NS today and return sunday 01/21 for repeat labs. documented in this encounter [facility] 01-14-2022 Miscellaneous Notes Cr 2.13 [facility] with [facility], pt to increase oral fluids at home, we will recheck a CMP on 01/17. Please sign pending order is agreeable. Thanks! Miriam Elizabeth RN documented in this encounter [facility] 01-14-2022 Miscellaneous Notes Pt scheduled for 1 unit of PRBCs [facility] Friday (01/16) @ 900am. Type and cross tomorrow (01/15). Confirmed with pt, order faxed. documented in this encounter [facility] 01-14-2022 History of Present illness Narrative documented in this encounter [facility] 01-14-2022 History of Present illness Narrative Images from the original note were not included. NAME: Sandip Broussard CLINIC NO.: [id number] DATE OF SERVICE: January 14, 2022 Some [...] Epo usage. Unfortunately he suffered an acute [place] 11/23/2021 and also developed another GI bleed. [...] surgery w/ Dr. Hyde Last fall in [place]. Has tranexamic acid at home. Requesting ENT referral at [facility]. He is dehydrated and not keeping up with fluids. Ball Holder is elevated exacerbating cause was likely letting [...] Eliquis daily at the recommendation of his rehabilitation nurse. Since stopping the aspirin he has not [...] which included preparing to see the patient, lyvd-st-nvzl patient care, completing clinical documentation, performing a medically appropriate examination and ordering medications, tests, or procedures. Asher Hummel MD, CPE Services Provided at: [place], [place] & [place], [place] CC: Dr. Flash Gomez (Card[place] [facility]. Oumou Cho MD documented in this encounter [facility] 01-07-2022 Nurse Note Patient Identification confirmed: yes. Injection given and documented on SEP per provider order. Kathy Morelos Ma documented in this encounter [facility] 01-02-2022 Miscellaneous Notes Added patient to [...] RN documented in this encounter [facility] 12-21-2021 History of Present illness Narrative 10 documented in this encounter [facility] 12-17-2021 History of Present illness Narrative Patient states he was recently in the [facility] for a mild heart attack, was released. Then was admitted a few days later to the [facility] for fluid on his lungs. States they removed it and he is feeling much better. Patient states he has had to wear his oxygen all the time since his admission to the [facility]. Did not wear his in to the facility today bc he didn;t feel like he needed it . Then his Pulse ox was low and we had to put ours on him. Encouraged patient to wear his oxygen at all times. Lexi Velasquez RN Patient spouse would like to be called prior to him finishing treatment [phone] Erica Bain RN documented in this encounter [facility] 12-17-2021 History of Present illness Narrative Images from the original note were not included. NAME: Sandip Broussard CLINIC NO.: [id number] DATE OF SERVICE: December 17, 2021 Some [...] Epo usage. Unfortunately he suffered an acute [place] 11/23/2021 and also developed another GI bleed. [...] surgery w/ Dr. Hyde Last fall in [place]. Has tranexamic acid at home. Requesting ENT referral at [facility]. He is dehydrated and not keeping up with fluids. Ball Holder is elevated exacerbating cause was likely letting [...] Eliquis daily at the recommendation of his rehabilitation nurse. Since stopping the aspirin he has not [...] follow ups. Updated Visit, August 23, 2020: Llyod is 79 years old and returns with [...] 12/17/2021: Sodium 145, potassium 3.4, BUN 30, Ball Holder. 1.54, LDH 260, CBC: 1.98 > 10.2/32.5 [...] which included preparing to see the patient, hesn-mr-wnmz patient care, completing clinical documentation, obtaining and/or reviewing separately obtained history, performing a medically appropriate examination, counseling and educating the patient/family/caregiver and ordering medications, tests, or procedures. Asher Hummel MD, CPE Services Provided at: [place], [place] & [place], [place] CC: Dr. Flash Gomez (Card[place] [facility]. Oumou Cho MD documented in this encounter [facility] 11-29-2021 History of Present illness Narrative Images from the original note were not included. NAME: Sandip Broussard CLINIC NO.: [id number] DATE OF SERVICE: November 29, 2021 Some [...] Epo usage. Unfortunately he suffered an acute [place] 11/23/2021 and also developed another GI bleed. He was transfused, and medically managed after catheterization. 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 PLAN: 1. Hold Vidaza for 3 weeks (RTC in 3+ weeks on a Friday for possible start) 2. Consider Hospice - contact [facility] (current Home Health) 3. RTC in [...] surgery w/ Dr. Hyde Last fall in [place]. Has tranexamic acid at home. Requesting ENT referral at [facility]. He is dehydrated and not keeping up with fluids. Ball Holder is elevated exacerbating cause was likely letting [...] Eliquis daily at the recommendation of his rehabilitation nurse. Since stopping the aspirin he has not [...] which included preparing to see the patient, eddl-wj-[id number] patient care, completing clinical documentation, obtaining and/or reviewing separately obtained history, performing a medically appropriate examination, ordering medications, tests, or procedures and care coordination (not separately reported). Asher Hummel MD, CPE Services Provided at: [place], [place] & [place], [place] CC: [place]. Flash Gomez ([place] [facility] [place]. Oumou Cho MD documented in this encounter [facility] 11-29-2021 Miscellaneous Notes Records scanned. Update: Pt discharged home w/ home health on 11/25. [place]: Please scan pt's hospital records from [facility]. Thanks! Angle Kamara, RN Thank you for the update. FYI: Pt's calls to inform us that the pt is currently admitted to ICU @ [facility] after suffering a heart attack on Friday. Pt found to have pneumonia as well. Notes the pt's condition is stable as of now. Spouse will call back to reschedule pt's appointments once a discharge plan is in place. Angle Kamara RN documented in this encounter [facility] 11-28-2021 Miscellaneous Notes DISCHARGE CALL BACK Today's date: November 28, 2021 Notified of Pt discharge by: Pt's spouse Patient discharged on 11/25/21 from [facility] to Home with Homecare Nurse Primary Cancer Diagnosis: MDS Admitting Diagnosis: Myocardial Infarction Discharge Summary/SBAR reviewed: No - requested from HIM. Handoff Discussed with Transitional Airway Controller: N/A Psychosocial Risk Factors: None If patient [...] be calling to schedule f/u w/ pt's rehabilitation nurse. Discharged home w/ new meds. Spouse will be bringing new meds w/ them to tomorrow's f/u appointment. Angle Kamara RN documented in this encounter [facility] 11-27-2021 Note MR#: [id number] I [facility] Pt. 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 ASSESSMENT AND PLAN: 1. Lde-[id number] myocardial infarction, likely type 2, was temporarily [...] 2 and was stable at discharge. 6. Rxcc-wo-fwtgzyma mitral regurgitation noted on TE. 7. Coronary [...] on azacitidine injections monthly per [facility]. The patient's hemoglobin was stable while [...] the encoun (more content not included)... [facility] 11-16-2021 Miscellaneous Notes Per donald Asher/Dr. Brynn kumar for patient to wait for transfusion until Friday. Patient has been scheduled for transfusion @ [place] Friday, 11/19 @ 9:00 am. He will need to get TSC tomorrow before noon and go through the ER entrance. Spoke w/ November 16, 2021 12:01 PM and confirmed. Ada Perez Pt's notified and states the pt has c/o increased fatigue. Would like to proceed w/ transfusion @ [facility]. Orders given to MARII Puga. Angle Kamara RN Call placed to pt. No answer. Message left requesting call back. Angle Kamara RN ----- Message from Asher Hummel MD sent at 11/15/2021 4:32 PM EDT ----- Probably could use a transfusion if he feels bad. documented in this encounter [facility] 11-01-2021 History of Present illness Narrative Miriam Elizabeth RN documented in this encounter [facility] 10-29-2021 Miscellaneous Notes FYI: Pt's spouse reports that the pt is scheduled to receive a blood transfusion @ [facility] tomorrow @ 8 AM. Angle Kamara RN documented in this encounter [facility] 10-29-2021 History of Present illness Narrative Lab work at the [facility] today, results scanned in. No ANC available, ok to treat per Dr. Watt. Lexi Velasquez RN documented in this encounter [facility] 10-25-2021 History of Present illness Narrative Images from the original note were not included. NAME: Sandip Broussard CLINIC NO.: [id number] DATE OF SERVICE: October 25, 2021 Some [...] surgery w/ Dr. Hyde Last fall in [place]. Has tranexamic acid at home. Requesting ENT referral at [facility]. He is dehydrated and not keeping up with fluids. Ball Holder is elevated exacerbating cause was likely letting [...] Eliquis daily at the recommendation of his rehabilitation nurse. Since stopping the aspirin he has not [...] Drug use: Not on file Wilfred Martinez APRN.LINUX SUPPORT ENGINEER Services Provided at: [place], [place] CC: Dr. Flash Gomez ([place] [facility] [place]. Oumou Mandel documented in this encounter [facility] 10-15-2021 History of Present illness Narrative [...] EAC free of lesions. TM retracted. 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 Assessment/Plan: 1. H/o ETD. [...] Low documented in this encounter [facility] Evaluation + Plan note Future Appointments Appointment Date:03/10/2023 02:00:00 PM Scheduled Provider: Location:[facility] Appointment Type: Medicare Wellness Subsequent Appointment Date:03/10/2023 02:40:00 PM Scheduled Provider:Jacquelin Barton MD Location:[facility] Appointment Type: Open Diagnostic Tests PendingUrinalysis 01/10/23 [facility] Evaluation + Plan note Future Appointments Appointment Date:03/10/2023 02:00:00 PM Scheduled Provider: Location:[facility] Appointment Type: Medicare Wellness Subsequent Appointment Date:03/10/2023 02:40:00 PM Scheduled Provider:Jacquelin Barton MD Location:[facility] Appointment Type: Open [facility] Evaluation + Plan note Future Appointments Appointment Date:03/17/2023 02:40:00 PM Scheduled Provider:Jacquelin Barton MD [facility] Type: Open Appointment Date:03/18/2023 01:00:00 PM Scheduled Provider:ANTONIA MERCER MD Location:.ONCOLOGY Appointment Type:ONC Supportive Care New (FT) Appointment Date:04/16/2023 02:40:00 PM Scheduled Provider:Jacquelin Barton MD Location:[facility] Appointment Type: Open Appointment Date:04/22/2023 02:00:00 PM Scheduled Provider: Location:.ONCOLOGY Appointment Type:ONC Office Visit 30 (FT) Appointment Date:04/05/2024 02:00:00 PM Scheduled Provider: Location:[facility] Appointment Type:FM Medicare Wellness Subsequent Diagnostic Tests PendingCBC w/ Auto Diff 03/11/23Comprehensive Metabolic Panel 04/01/23Lactate Dehydrogenase 04/01/23 Future Scheduled TestsStool Occult Blood 03/12/23 [facility] Evaluation + Plan note Future Appointments Appointment Date:01/15/2024 03:30:00 PM Scheduled Provider:Jacquelin Barton MD Location:[facility] Appointment Type: Open Appointment Date:04/02/2024 10:45:00 AM Scheduled Provider:Elena DO MD Location:[facility] Appointment Type:URO Office Visit Appointment Date:04/05/2024 02:00:00 PM Scheduled Provider: Location:[facility] Appointment Type:FM Medicare Wellness Subsequent [facility] Evaluation note Diagnosis Chronic Eustachian tube dysfunction, bilateral- Primary Epistaxis [facility] Diagnosis CRF (chronic renal failure), [...] syndrome, unspecified [facility]* Diagnosis Myelodysplastic syndrome (HCC)- Primary Myelodysplastic [...] prostate Hyperkalemia Hyperpotassemia [facility] Diagnosis Myelodysplastic syndrome (HCC)- Primary Myelodysplastic syndrome, unspecified [facility] Diagnosis Myelodysplastic syndrome (HCC)- Primary Myelodysplastic syndrome, unspecified [facility]* Diagnosis Myelodysplastic syndrome (HCC)- Primary Myelodysplastic syndrome, unspecified [facility] Diagnosis Myelodysplastic syndrome (HCC)- Primary Myelodysplastic syndrome, unspecified CRF (chronic renal failure), stage 4 (severe) (HCC) documented in this encounter [facility] note* Diagnosis Anemia of chronic renal failure, stage 4 (severe) (HCC)- Primary CRF (chronic renal failure), stage 4 (severe) (HCC) Iron deficiency anemia due to chronic blood loss Iron deficiency anemia secondary to blood loss (chronic) CKD (chronic kidney disease) stage 4, GFR 15-29 ml/min (HCC) Chronic kidney disease, Stage IV (severe) Myelodysplastic syndrome (HCC) Myelodysplastic syndrome, unspecified documented in this encounter [facility] note* Diagnosis Myelodysplastic syndrome (HCC)- Primary Myelodysplastic syndrome, unspecified CRF (chronic renal failure), stage 4 (severe) (HCC) Anemia of chronic renal failure, stage 4 (severe) (HCC) 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 documented in this encounter [facility] note* Diagnosis Acute heart failure, unspecified heart failure type (HCC)- Primary documented in this encounter [facility] note* Diagnosis Myelodysplastic syndrome (HCC)- Primary Myelodysplastic syndrome, unspecified CRF (chronic renal failure), stage 4 (severe) (HCC) Anemia of chronic renal failure, stage 4 (severe) (HCC) 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 loss Iron deficiency anemia secondary to blood loss (chronic) CKD (chronic kidney disease) stage 4, GFR 15-29 ml/min (HCC) Chronic kidney disease, Stage IV (severe) documented in this encounter [facility] note* Diagnosis Myelodysplastic syndrome (HCC)- Primary Myelodysplastic syndrome, unspecified documented in this encounter [facility] note* Diagnosis Myelodysplastic syndrome (HCC)- Primary Myelodysplastic syndrome, unspecified documented in this encounter [facility] note* Diagnosis Myelodysplastic syndrome (HCC)- Primary Myelodysplastic syndrome, unspecified documented in this encounter [facility] note* Diagnosis Myelodysplastic syndrome (HCC)- Primary Myelodysplastic syndrome, unspecified CRF (chronic renal failure), stage 4 (severe) (HCC) Anemia of chronic renal failure, stage 4 (severe) (HCC) 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 documented in this encounter [facility] note* Diagnosis Anemia of chronic renal failure, stage 4 (severe) (HCC)- Primary Iron deficiency anemia due to chronic blood loss Iron deficiency anemia secondary to blood loss (chronic) Myelodysplastic syndrome (HCC) Myelodysplastic syndrome, unspecified documented in this encounter [facility] note* Diagnosis Myelodysplastic syndrome (HCC)- Primary Myelodysplastic syndrome, unspecified CRF (chronic renal failure), stage 4 (severe) (HCC) Anemia of chronic renal failure, stage 4 (severe) (HCC) Iron deficiency anemia due to chronic blood loss Iron deficiency anemia secondary to blood loss (chronic) CKD (chronic kidney disease) stage 4, GFR 15-29 ml/min (HCC) Chronic kidney disease, Stage IV (severe) documented in this encounter [facility] note* Diagnosis Myelodysplastic syndrome (HCC)- Primary Myelodysplastic syndrome, unspecified [facility] Diagnosis Myelodysplastic syndrome (HCC)- Primary Myelodysplastic syndrome, unspecified CRF (chronic renal failure), stage 4 (severe) (HCC) 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 documented in this encounter [facility] note* Diagnosis CRF (chronic renal failure), stage 4 (severe) (HCC)- Primary Myelodysplastic syndrome (HCC) Myelodysplastic syndrome, unspecified [facility]* Diagnosis Myelodysplastic syndrome (HCC) Myelodysplastic syndrome, unspecified CRF (chronic renal failure), stage 4 (severe) (HCC) Anemia of chronic renal failure, stage 4 (severe) (HCC) 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 [facility] Diagnosis Anemia of chronic renal failure, stage 4 (severe) (HCC)- Primary [facility] Diagnosis Myelodysplastic syndrome (HCC)- Primary Myelodysplastic syndrome, unspecified Anemia of chronic renal failure, stage 4 (severe) (HCC) documented in this encounter [facility] note* Diagnosis Anemia of chronic renal failure, stage 4 (severe) (HCC)- Primary Iron deficiency anemia due to chronic blood loss Iron deficiency anemia secondary to blood loss (chronic) Myelodysplastic syndrome (HCC) Myelodysplastic syndrome, unspecified CRF (chronic renal failure), stage 4 (severe) (HCC) CKD (chronic kidney disease) stage 4, GFR 15-29 ml/min (HCC) Chronic kidney disease, Stage IV (severe) documented in this encounter [facility] note* Diagnosis CRF (chronic renal failure), stage 4 (severe) (HCC)- Primary documented in this encounter [facility] note* Diagnosis Myelodysplastic syndrome (HCC)- Primary Myelodysplastic syndrome, unspecified CRF (chronic renal failure), stage 4 (severe) (HCC) documented in this encounter [facility] note* Diagnosis CRF (chronic renal failure), [...] unspecified [facility] Diagnosis Anemia of chronic renal failure, [...] (severe) [facility] Diagnosis Myelodysplastic syndrome (HCC)- Primary Myelodysplastic syndrome, unspecified CKD (chronic kidney disease) stage 4, GFR 15-29 ml/min (HCC) Chronic kidney disease, Stage IV (severe) Anemia of chronic renal failure, stage 4 (severe) (HCC) Iron deficiency anemia due to chronic blood loss Iron deficiency anemia secondary to blood loss (chronic) [facility] Diagnosis Myelodysplastic syndrome (HCC)- Primary Myelodysplastic syndrome, unspecified Anemia of chronic renal failure, stage 4 (severe) (HCC) [facility]* Diagnosis Anemia of chronic renal failure, [...] (severe) [facility] Diagnosis Myelodysplastic syndrome (HCC)- Primary Myelodysplastic syndrome, unspecified CKD (chronic kidney disease) stage 4, GFR 15-29 ml/min (HCC) Chronic kidney disease, Stage IV (severe) Anemia of chronic renal failure, stage 4 (severe) (HCC) documented in this encounter [facility] note* Diagnosis Malignant neoplasm of prostate (HCC)- Primary Malignant neoplasm of prostate documented [facility]* Diagnosis Myelodysplastic syndrome (HCC)- Primary Myelodysplastic syndrome, unspecified documented in this encounter [facility] note* Diagnosis MDS (myelodysplastic syndrome) (HCC)- Primary Myelodysplastic syndrome, unspecified documented in this encounter [facility] note* Diagnosis Myelodysplastic syndrome (HCC)- Primary Myelodysplastic syndrome, unspecified CRF (chronic renal failure), stage 4 (severe) (HCC) documented in this encounter [facility] note* Diagnosis Myelodysplastic syndrome (HCC)- Primary Myelodysplastic syndrome, unspecified CRF (chronic renal failure), stage 4 (severe) (HCC) Anemia of chronic renal failure, stage 4 (severe) (HCC) documented in this encounter [facility] note* Diagnosis CRF (chronic renal failure), stage 4 (severe) (HCC)- Primary Anemia of chronic renal failure, stage 4 (severe) (HCC) 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 loss Iron deficiency anemia secondary to blood loss (chronic) CKD (chronic kidney disease) stage 4, GFR 15-29 ml/min (HCC) Chronic kidney disease, Stage IV (severe) Myelodysplastic syndrome (HCC) Myelodysplastic syndrome, unspecified documented in this encounter [facility] note* Diagnosis Anemia of chronic renal failure, stage 4 (severe) (HCC)- Primary Iron deficiency anemia due to chronic blood loss Iron deficiency anemia secondary to blood loss (chronic) Myelodysplastic syndrome (HCC) Myelodysplastic syndrome, unspecified CRF (chronic renal failure), stage 4 (severe) (HCC) CKD (chronic kidney disease) stage 4, GFR 15-29 ml/min (HCC) Chronic kidney disease, Stage IV (severe) documented in this encounter [facility] note* Diagnosis MDS (myelodysplastic syndrome) (HCC)- Primary Myelodysplastic syndrome, unspecified Anemia of chronic renal failure, stage 4 (severe) (HCC) 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 CRF (chronic renal failure), stage 4 (severe) (HCC) documented in this encounter [facility] note* Diagnosis CRF (chronic renal failure), [...] syndrome, unspecified [facility]* Diagnosis Myelodysplastic syndrome (HCC)- Primary Myelodysplastic [...] inoculation against influenza documented in this encounter [facility] note* Diagnosis Myelodysplastic syndrome (HCC)- Primary Myelodysplastic syndrome, unspecified MDS (myelodysplastic syndrome) (HCC) Myelodysplastic syndrome, unspecified 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 CRF (chronic renal failure), stage 4 (severe) (HCC) documented in this encounter [facility] note* Diagnosis Myelodysplastic syndrome (HCC)- Primary Myelodysplastic syndrome, unspecified CRF (chronic renal failure), stage 4 (severe) (HCC) Anemia of chronic renal failure, stage 4 (severe) (HCC) Iron deficiency anemia due to chronic blood loss Iron deficiency anemia secondary to blood loss (chronic) CKD (chronic kidney disease) stage 4, GFR 15-29 ml/min (HCC) Chronic kidney disease, Stage IV (severe) documented in this encounter [facility] note* Diagnosis Myelodysplastic syndrome (HCC)- Primary Myelodysplastic syndrome, unspecified documented in this encounter [facility] note* Diagnosis MDS (myelodysplastic syndrome) (HCC)- Primary Myelodysplastic syndrome, unspecified Dependent for standing 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 CRF (chronic renal failure), stage 4 (severe) (HCC) 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 documented in this encounter [facility] note* Diagnosis Myelodysplastic syndrome (HCC)- Primary Myelodysplastic syndrome, unspecified CRF (chronic renal failure), stage 4 (severe) (HCC) Anemia of chronic renal failure, stage 4 (severe) (HCC) Iron deficiency anemia due to chronic blood loss Iron deficiency anemia secondary to blood loss (chronic) CKD (chronic kidney disease) stage 4, GFR 15-29 ml/min (HCC) Chronic kidney disease, Stage IV (severe) documented in this encounter [facility] note* Diagnosis MDS (myelodysplastic syndrome) (HCC)- Primary Myelodysplastic syndrome, unspecified documented in this encounter [facility] note* Diagnosis Myelodysplastic syndrome (HCC)- Primary Myelodysplastic syndrome, unspecified 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 CRF (chronic renal failure), stage 4 (severe) (HCC) CKD (chronic kidney disease) stage 4, GFR 15-29 ml/min (HCC) Chronic kidney disease, Stage IV (severe) documented in this encounter [facility] note* Diagnosis Myelodysplastic syndrome (HCC)- Primary Myelodysplastic syndrome, unspecified CRF (chronic renal failure), stage 4 (severe) (HCC) Anemia of chronic renal failure, stage 4 (severe) (HCC) Iron deficiency anemia due to chronic blood loss Iron deficiency anemia secondary to blood loss (chronic) CKD (chronic kidney disease) stage 4, GFR 15-29 ml/min (HCC) Chronic kidney disease, Stage IV (severe) documented in this encounter [facility] note* Diagnosis MDS (myelodysplastic syndrome) (HCC)- Primary Myelodysplastic syndrome, unspecified CRF (chronic renal failure), stage 4 (severe) (HCC) Anemia of chronic renal failure, stage 4 (severe) (HCC) documented in this encounter [facility] note* Diagnosis Myelodysplastic syndrome (HCC)- Primary Myelodysplastic syndrome, unspecified documented in this encounter [facility] note* Diagnosis MDS (myelodysplastic syndrome) (HCC)- [...] IV (severe) documented [facility]* Diagnosis Myelodysplastic syndrome (HCC)- Primary Myelodysplastic syndrome, unspecified Anemia of chronic renal failure, stage 4 (severe) (HCC) Iron deficiency anemia due to chronic blood loss Iron deficiency anemia secondary to blood loss (chronic) CRF (chronic renal failure), stage 4 (severe) (HCC) CKD (chronic kidney disease) stage 4, GFR 15-29 ml/min (HCC) Chronic kidney disease, Stage IV (severe) documented in this encounter [facility] note* Diagnosis Myelodysplastic syndrome (HCC)- Primary Myelodysplastic syndrome, unspecified [facility]* Diagnosis MDS (myelodysplastic syndrome) (HCC)- Primary Myelodysplastic syndrome, unspecified CRF (chronic renal failure), stage 4 (severe) (HCC) documented [facility]* Diagnosis Myelodysplastic syndrome (HCC)- Primary Myelodysplastic syndrome, unspecified CRF (chronic renal failure), stage 4 (severe) (HCC) Anemia of chronic renal failure, stage 4 (severe) (HCC) Iron deficiency anemia due to chronic blood loss Iron deficiency anemia secondary to blood loss (chronic) CKD (chronic kidney disease) stage 4, GFR 15-29 ml/min (HCC) Chronic kidney disease, Stage IV (severe) documented in this encounter [facility] note* Diagnosis Myelodysplastic syndrome (HCC)- Primary Myelodysplastic syndrome, unspecified [facility] Diagnosis Myelodysplastic syndrome (HCC)- Primary Myelodysplastic syndrome, unspecified CRF (chronic renal failure), stage 4 (severe) (HCC) Anemia of chronic renal failure, stage 4 (severe) (HCC) Iron deficiency anemia due to chronic blood loss Iron deficiency anemia secondary to blood loss (chronic) CKD (chronic kidney disease) stage 4, GFR 15-29 ml/min (HCC) Chronic kidney disease, Stage IV (severe) documented in this encounter [facility]* Diagnosis Myelodysplastic syndrome (HCC)- Primary Myelodysplastic syndrome, unspecified 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 Anemia of chronic renal failure, stage 4 (severe) (HCC) documented in this encounter [facility] note* Diagnosis MDS (myelodysplastic syndrome) (HCC)- Primary Myelodysplastic syndrome, unspecified documented in this encounter [facility] note* Diagnosis Myelodysplastic syndrome (HCC)- Primary Myelodysplastic syndrome, unspecified documented in this encounter [facility] note* Diagnosis MDS (myelodysplastic syndrome) (HCC)- Primary Myelodysplastic syndrome, unspecified 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 Anemia of chronic renal failure, stage 4 (severe) (HCC) Myelodysplastic syndrome (HCC) Myelodysplastic syndrome, unspecified documented in this encounter [facility]* Diagnosis MDS (myelodysplastic syndrome) (HCC)- Primary Myelodysplastic syndrome, unspecified Anemia of chronic renal failure, stage 4 (severe) (HCC) CRF (chronic renal failure), stage 4 (severe) (HCC) documented in this encounter [facility] note* Diagnosis Anemia of chronic renal failure, stage 4 (severe) (HCC)- Primary Iron deficiency anemia due to chronic blood loss Iron deficiency anemia secondary to blood loss (chronic) Myelodysplastic syndrome (HCC) Myelodysplastic syndrome, unspecified documented in this encounter [facility] note* Diagnosis Myelodysplastic syndrome (HCC)- Primary Myelodysplastic syndrome, unspecified CRF (chronic renal failure), stage 4 (severe) (HCC) Anemia of chronic renal failure, stage 4 (severe) (HCC) Iron deficiency anemia due to chronic blood loss Iron deficiency anemia secondary to blood loss (chronic) CKD (chronic kidney disease) stage 4, GFR 15-29 ml/min (HCC) Chronic kidney disease, Stage IV (severe) documented in this encounter [facility] note* Diagnosis MDS (myelodysplastic syndrome) (HCC)- Primary Myelodysplastic syndrome, unspecified Anemia of chronic renal failure, stage 4 (severe) (HCC) CRF (chronic renal failure), stage 4 (severe) (HCC) 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 Myelodysplastic syndrome (HCC) Myelodysplastic syndrome, unspecified documented in this encounter [facility] note* Diagnosis Iron deficiency anemia due to chronic blood loss- Primary Iron deficiency anemia secondary to blood loss (chronic) MDS (myelodysplastic syndrome) (HCC) Myelodysplastic syndrome, unspecified Anemia of chronic renal failure, stage 4 (severe) (HCC) [facility] Myelodysplastic syndrome (HCC)- Primary Myelodysplastic syndrome, unspecified Anemia of chronic renal failure, stage 4 (severe) (HCC) 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 [facility] Diagnosis Myelodysplastic syndrome (HCC)- Primary Myelodysplastic syndrome, unspecified [facility] Diagnosis Myelodysplastic syndrome (HCC)- Primary Myelodysplastic [...] (severe) [facility] Diagnosis MDS (myelodysplastic syndrome) (HCC)- Primary [...] hypovolemia [facility] Diagnosis Myelodysplastic syndrome (HCC)- Primary Myelodysplastic syndrome, unspecified [facility] Diagnosis MDS (myelodysplastic syndrome) (HCC)- Primary Myelodysplastic syndrome, unspecified Anemia of chronic renal failure, stage 4 (severe) (HCC) [facility] Diagnosis MDS (myelodysplastic syndrome) (HCC)- Primary Myelodysplastic syndrome, unspecified Iron deficiency anemia due to chronic blood loss Iron deficiency anemia secondary to blood loss (chronic) Anemia of chronic renal failure, stage 4 (severe) (HCC) [facility] Diagnosis Anemia of chronic renal failure, stage 4 (severe) (HCC)- Primary Iron deficiency anemia due to chronic blood loss Iron deficiency anemia secondary to blood loss (chronic) MDS (myelodysplastic syndrome) (HCC) Myelodysplastic syndrome, unspecified [facility] Diagnosis MDS (myelodysplastic syndrome) (HCC)- Primary Myelodysplastic syndrome, unspecified Anemia of chronic renal failure, stage 4 (severe) (HCC) Iron deficiency anemia due to chronic blood loss Iron deficiency anemia secondary to blood loss (chronic) [facility]* Diagnosis MDS (myelodysplastic syndrome) (HCC)- Primary Myelodysplastic syndrome, unspecified Anemia of chronic renal failure, stage 4 (severe) (HCC) documented in this encounter [facility] note* Diagnosis MDS (myelodysplastic syndrome) (HCC)- Primary Myelodysplastic syndrome, unspecified Anemia, unspecified type documented in this encounter [facility] note* Diagnosis MDS (myelodysplastic syndrome) (HCC)- Primary Myelodysplastic syndrome, unspecified [facility]* Diagnosis Anemia of chronic renal failure, stage 4 (severe) (HCC)- Primary Iron deficiency anemia due to chronic blood loss Iron deficiency anemia secondary to blood loss (chronic) MDS (myelodysplastic syndrome) (HCC) Myelodysplastic syndrome, unspecified documented in this encounter [facility] note* Diagnosis MDS (myelodysplastic syndrome) (HCC)- Primary Myelodysplastic syndrome, unspecified Anemia of chronic renal failure, stage 4 (severe) (HCC) Type 2 diabetes mellitus with stage 3 chronic kidney disease, with long-term current use of insulin, unspecified whether stage 3a or 3b CKD (HCC) documented in this encounter [facility] noteNo assessment [facility] Work [facility]* Diagnosis Oxygen deficit- Primary Hypoxemia Epistaxis MDS (myelodysplastic syndrome) (HCC) Myelodysplastic syndrome, unspecified documented in this encounter [facility] note* Diagnosis Onset Date Resolution Status 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, stage 3b acute Chronic systolic heart failure acute 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 acute Gout acute Myelodysplastic syndrome acu te Vitamin D deficiency [facility] Work Phone: Evaluation note* Diagnosis CKD (chronic kidney disease) stage 4, GFR 15-29 ml/min (HCC)- Primary Chronic kidney disease, Stage IV (severe) [facility]* Diagnosis Screening for genitourinary condition Screening for other and unspecified genitourinary condition [facility]* Diagnosis Epistaxis- Primary documented in this encounter [facility] note* Diagnosis Onset Date Resolution Status 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, stage 3b acute Chronic systolic heart failure acute 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 acute Gout acute Myelodysplastic syndrome acu te Vitamin D deficiency acute Rash acute [facility] Work Phone: Hospital course Narrative No data available for this section [facility] No data available for this section [facility] No data available for this section [facility] Summary Purpose Family History Relationship Condition Age at Onset Recorded Date/T eleazar father Cerebrovascular accident (CVA) Unknown Not Specified Hypertension Unknown Malignant neoplasm Unknown Relationship Condition Age at Onset Recorded Date/T eleazar father Cerebrovascular accident (CVA) Unknown mother Hypertension Unknown Malignant neoplasm Unknown Advance Directives Documents on File Type Date Recorded 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 Expl anation Advance Directive(s) 07/06/2020 6:15 PM Documents on File Type Date Recorded 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 Expl anation Advance Directive(s) 07/06/2020 6:15 PM [...] to 3 most recent administrations Medication Order [facility] Action Action Dose Rate Site cyanocobalamin 1,000 [...] to 3 most recent administrations Medication Order [facility] Action Action Dose Rate Site epoetin larisa-epbx [...] to 3 most recent administrations Medication Order [facility] Action Action Date Dose Rate Site decitabine 21.1 mg subcutaneous injection (DACOGEN) 21.1 mg (0.2 mg/kg/dose 105.5 kg Treatment plan Recorded weight), SUBCUTANEOUS, ONCE, 1 dose, On Fri06/25/22 at 1400, EXP: 1400 06/25/22 Hazardous Chemotherapy Drug: Use appropriate PPE. Refrigerate. Given 06/25/2022 2:00 PM EST 21.1 mg Arm, Left Inactive Administered Medications - up to 3 most recent administrations Medication Order [facility] Action Action Date Dose Rate Site cyanocobalamin [...] to 3 most recent administrations Medication Order [facility] Action Action Date Dose Rate Site decitabine [...] 1 dose, On Fri08/28/22 at 1600, EXP: 2117 Refrigerate - EXP: (24 HR) Inject into [...] syndrome (HCC) Procedures CONSULT TO HEMATOLOGY/ONCOLOGY OFFICE/OUTPATIENT [facility] 60-74 MINUTES Asher Hummel MD [address] [place] [address] [place] [address] Referral ID Status Reason Start Date Expiration Date Visits Requested Visits Authorized [id number] Authorized PCP Requested Referral 03/15/2022 03/15/2023 1 [...] section and content) DATE CREATED AUTHOR 07/05/2018 [facility] DATE CREATED AUTHOR AUTHOR'S ORGANIZ ATION 12/22/[address] [facility] DATE CREATED AUTHOR AUTHOR'S ORGANIZ ATION 01/03/2023 [facility] DATE CREATED AUTHOR AUTHOR'S ORGANIZ ATION 08/20/2023 [facility] DATE CREATED AUTHOR AUTHOR'S ORGANIZ ATION 10/29/2023 [facility] DATE CREATED AUTHOR AUTHOR'S ORGANIZ ATION 11/05/2023 [facility] DATE CREATED AUTHOR AUTHOR'S ORGANIZ ATION 11/15/2023 [facility] DATE CREATED AUTHOR AUTHOR'S ORGANIZ ATION 01/07/2024 [place] DATE CREATED AUTHOR AUTHOR'S ORGANIZ ATION 01/17/2024 [facility] Source Comments (unrecognize d section and content) In the event this informatio n is protected by the Federal Confidentiality of Alcohol and Drug Abuse Patient Records regulations: The Federal rules restrict any use of the information to criminally investigate or prosecute any alcohol or drug abuse patient.[facility] the event this information is protected by the Federal Confidentiality of Alcohol and Drug Abuse Patient Records regulations: The Federal rules restrict any use of the information to criminally investigate or prosecute any alcohol or drug abuse patient.[facility] the event this information is protected by the Federal Confidentiality of Alcohol and Drug Abuse Patient Records regulations: The Federal rules restrict any use of the information to criminally investigate or prosecute any alcohol or drug abuse patient.[facility]In the event this information is protected by the Federal Confidentiality of Alcohol and Drug Abuse Patient Records regulations: The Federal rules restrict any use of the information to criminally investigate or prosecute any alcohol or drug abuse patient.[facility] the event this information is protected by the Federal Confidentiality of Alcohol and Drug Abuse Patient Records regulations: The Federal rules restrict any use of the information to criminally investigate or prosecute any alcohol or drug abuse patient.[facility] the event this information is protected by the Federal Confidentiality of Alcohol and Drug Abuse Patient Records regulations: The Federal rules restrict any use of the information to criminally investigate or prosecute any alcohol or drug abuse patient.[facility] the event this information is protected by the Federal Confidentiality of Alcohol and Drug Abuse Patient Records regulations: The Federal rules restrict any use of the information to criminally investigate or prosecute any alcohol or drug abuse patient.[facility] the event this information is protected by the Federal Confidentiality of Alcohol and Drug Abuse Patient Records regulations: The Federal rules restrict any use of the information to criminally investigate or prosecute any alcohol or drug abuse patient.[facility] HospitalIn the event this information is protected by the Federal Confidentiality of Alcohol and Drug Abuse Patient Records regulations: The Federal rules restrict any use of the information to criminally investigate or prosecute any alcohol or drug abuse patient.[facility] the event this information is protected by the Federal Confidentiality of Alcohol and Drug Abuse Patient Records regulations: The Federal rules restrict any use of the information to criminally investigate or prosecute any alcohol or drug abuse patient.[facility] the event this information is protected by the Federal Confidentiality of Alcohol and Drug Abuse Patient Records regulations: The Federal rules restrict any use of the information to criminally investigate or prosecute any alcohol or drug abuse patient.[facility] the event this information is protected by the Federal Confidentiality of Alcohol and Drug Abuse Patient Records regulations: The Federal rules restrict any use of the information to criminally investigate or prosecute any alcohol or drug abuse patient.[facility] HospitalIn the event this information is protected by the Federal Confidentiality of Alcohol and Drug Abuse Patient Records regulations: The Federal rules restrict any use of the information to criminally investigate or prosecute any alcohol or drug abuse patient.[facility] HospitalIn the event this information is protected by the Federal Confidentiality of Alcohol and Drug Abuse Patient Records regulations: The Federal rules restrict any use of the information to criminally investigate or prosecute any alcohol or drug abuse patient.[facility] the event this information is protected by the Federal Confidentiality of Alcohol and Drug Abuse Patient Records regulations: The Federal rules restrict any use of the information to criminally investigate or prosecute any alcohol or drug abuse patient.[facility] Hospital[facility] the event this information is protected by the Federal Confidentiality of Alcohol and Drug Abuse Patient Records regulations: The Federal rules restrict any use of the information to criminally investigate or prosecute any alcohol or drug abuse patient.[facility] HospitalIn the event this information is protected by the Federal Confidentiality of Alcohol and Drug Abuse Patient Records regulations: The Federal rules restrict any use of the information to criminally investigate or prosecute any alcohol or drug abuse patient.[facility] HospitalIn the event this information is protected by the Federal Confidentiality of Alcohol and Drug Abuse Patient Records regulations: The Federal rules restrict any use of the information to criminally investigate or prosecute any alcohol or drug abuse patient.[facility] Hospital[facility] the event this information is protected by the Federal Confidentiality of Alcohol and Drug Abuse Patient Records regulations: The Federal rules restrict any use of the information to criminally investigate or prosecute any alcohol or drug abuse patient.[facility] Hospital[facility] the event this information is protected by the Federal Confidentiality of Alcohol and Drug Abuse Patient Records regulations: The Federal rules restrict any use of the information to criminally investigate or prosecute any alcohol or drug abuse patient.[facility] HospitalIn the event this information is protected by the Federal Confidentiality of Alcohol and Drug Abuse Patient Records regulations: The Federal rules restrict any use of the information to criminally investigate or prosecute any alcohol or drug abuse patient.[facility] HospitalIn the event this information is protected by the Federal Confidentiality of Alcohol and Drug Abuse Patient Records regulations: The Federal rules restrict any use of the information to criminally investigate or prosecute any alcohol or drug abuse patient.[facility] HospitalIn the event this information is protected by the Federal Confidentiality of Alcohol and Drug Abuse Patient Records regulations: The Federal rules restrict any use of the information to criminally investigate or prosecute any alcohol or drug abuse patient.[facility] HospitalIn the event this information is protected by the Federal Confidentiality of Alcohol and Drug Abuse Patient Records regulations: The Federal rules restrict any use of the information to criminally investigate or prosecute any alcohol or drug abuse patient.[facility] HospitalIn the event this information is protected by the Federal Confidentiality of Alcohol and Drug Abuse Patient Records regulations: The Federal rules restrict any use of the information to criminally investigate or prosecute any alcohol or drug abuse patient.[facility] HospitalIn the event this information is protected by the Federal Confidentiality of Alcohol and Drug Abuse Patient Records regulations: The Federal rules restrict any use of the information to criminally investigate or prosecute any alcohol or drug abuse patient.[facility]In the event this information is protected by the Federal Confidentiality of Alcohol and Drug Abuse Patient Records regulations: The Federal rules restrict any use of the information to criminally investigate or prosecute any alcohol or drug abuse patient.[facility] HospitalIn the event this information is protected by the Federal Confidentiality of Alcohol and Drug Abuse Patient Records regulations: The Federal rules restrict any use of the information to criminally investigate or prosecute any alcohol or drug abuse patient.[facility] HospitalIn the event this information is protected by the Federal Confidentiality of Alcohol and Drug Abuse Patient Records regulations: The Federal rules restrict any use of the information to criminally investigate or prosecute any alcohol or drug abuse patient.[facility] HospitalIn the event this information is protected by the Federal Confidentiality of Alcohol and Drug Abuse Patient Records regulations: The Federal rules restrict any use of the information to criminally investigate or prosecute any alcohol or drug abuse patient.[facility]In the event this information is protected by the Federal Confidentiality of Alcohol and Drug Abuse Patient Records regulations: The Federal rules restrict any use of the information to criminally investigate or prosecute any alcohol or drug abuse patient.[facility]In the event this information is protected by the Federal Confidentiality of Alcohol and Drug Abuse Patient Records regulations: The Federal rules restrict any use of the information to criminally investigate or prosecute any alcohol or drug abuse patient.[facility]In the event this information is protected by the Federal Confidentiality of Alcohol and Drug Abuse Patient Records regulations: The Federal rules restrict any use of the information to criminally investigate or prosecute any alcohol or drug abuse patient.[facility]In the event this information is protected by the Federal Confidentiality of Alcohol and Drug Abuse Patient Records regulations: The Federal rules restrict any use of the information to criminally investigate or prosecute any alcohol or drug abuse patient.[facility]In the event this information is protected by the Federal Confidentiality of Alcohol and Drug Abuse Patient Records regulations: The Federal rules restrict any use of the information to criminally investigate or prosecute any alcohol or drug abuse patient.[facility] HospitalIn the event this information is protected by the Federal Confidentiality of Alcohol and Drug Abuse Patient Records regulations: The Federal rules restrict any use of the information to criminally investigate or prosecute any alcohol or drug abuse patient.[facility]In the event this information is protected by the Federal Confidentiality of Alcohol and Drug Abuse Patient Records regulations: The Federal rules restrict any use of the information to criminally investigate or prosecute any alcohol or drug abuse patient.[facility]In the event this information is protected by the Federal Confidentiality of Alcohol and Drug Abuse Patient Records regulations: The Federal rules restrict any use of the information to criminally investigate or prosecute any alcohol or drug abuse patient.[facility]In the event this information is protected by the Federal Confidentiality of Alcohol and Drug Abuse Patient Records regulations: The Federal rules restrict any use of the information to criminally investigate or prosecute any alcohol or drug abuse patient.[facility] HospitalIn the event this information is protected by the Federal Confidentiality of Alcohol and Drug Abuse Patient Records regulations: The Federal rules restrict any use of the information to criminally investigate or prosecute any alcohol or drug abuse patient.[facility] HospitalIn the event this information is protected by the Federal Confidentiality of Alcohol and Drug Abuse Patient Records regulations: The Federal rules restrict any use of the information to criminally investigate or prosecute any alcohol or drug abuse patient.[facility] HospitalIn the event this information is protected by the Federal Confidentiality of Alcohol and Drug Abuse Patient Records regulations: The Federal rules restrict any use of the information to criminally investigate or prosecute any alcohol or drug abuse patient.[facility] HospitalIn the event this information is protected by the Federal Confidentiality of Alcohol and Drug Abuse Patient Records regulations: The Federal rules restrict any use of the information to criminally investigate or prosecute any alcohol or drug abuse patient.[facility] HospitalIn the event this information is protected by the Federal Confidentiality of Alcohol and Drug Abuse Patient Records regulations: The Federal rules restrict any use of the information to criminally investigate or prosecute any alcohol or drug abuse patient.[facility]In the event this information is protected by the Federal Confidentiality of Alcohol and Drug Abuse Patient Records regulations: The Federal rules restrict any use of the information to criminally investigate or prosecute any alcohol or drug abuse patient.[facility] HospitalIn the event this information is protected by the Federal Confidentiality of Alcohol and Drug Abuse Patient Records regulations: The Federal rules restrict any use of the information to criminally investigate or prosecute any alcohol or drug abuse patient.[facility] HospitalIn the event this information is protected by the Federal Confidentiality of Alcohol and Drug Abuse Patient Records regulations: The Federal rules restrict any use of the information to criminally investigate or prosecute any alcohol or drug abuse patient.[facility]In the event this information is protected by the Federal Confidentiality of Alcohol and Drug Abuse Patient Records regulations: The Federal rules restrict any use of the information to criminally investigate or prosecute any alcohol or drug abuse patient.[facility] HospitalIn the event this information is protected by the Federal Confidentiality of Alcohol and Drug Abuse Patient Records regulations: The Federal rules restrict any use of the information to criminally investigate or prosecute any alcohol or drug abuse patient.[facility] HospitalIn the event this information is protected by the Federal Confidentiality of Alcohol and Drug Abuse Patient Records regulations: The Federal rules restrict any use of the information to criminally investigate or prosecute any alcohol or drug abuse patient.[facility] HospitalIn the event this information is protected by the Federal Confidentiality of Alcohol and Drug Abuse Patient Records regulations: The Federal rules restrict any use of the information to criminally investigate or prosecute any alcohol or drug abuse patient.[facility] HospitalIn the event this information is protected by the Federal Confidentiality of Alcohol and Drug Abuse Patient Records regulations: The Federal rules restrict any use of the information to criminally investigate or prosecute any alcohol or drug abuse patient.[facility] HospitalIn the event this information is protected by the Federal Confidentiality of Alcohol and Drug Abuse Patient Records regulations: The Federal rules restrict any use of the information to criminally investigate or prosecute any alcohol or drug abuse patient.[facility] HospitalIn the event this information is protected by the Federal Confidentiality of Alcohol and Drug Abuse Patient Records regulations: The Federal rules restrict any use of the information to criminally investigate or prosecute any alcohol or drug abuse patient.[facility] HospitalIn the event this information is protected by the Federal Confidentiality of Alcohol and Drug Abuse Patient Records regulations: The Federal rules restrict any use of the information to criminally investigate or prosecute any alcohol or drug abuse patient.[facility] HospitalIn the event this information is protected by the Federal Confidentiality of Alcohol and Drug Abuse Patient Records regulations: The Federal rules restrict any use of the information to criminally investigate or prosecute any alcohol or drug abuse patient.[facility] HospitalIn the event this information is protected by the Federal Confidentiality of Alcohol and Drug Abuse Patient Records regulations: The Federal rules restrict any use of the information to criminally investigate or prosecute any alcohol or drug abuse patient.[facility] HospitalIn the event this information is protected by the Federal Confidentiality of Alcohol and Drug Abuse Patient Records regulations: The Federal rules restrict any use of the information to criminally investigate or prosecute any alcohol or drug abuse patient.[facility] HospitalIn the event this information is protected by the Federal Confidentiality of Alcohol and Drug Abuse Patient Records regulations: The Federal rules restrict any use of the information to criminally investigate or prosecute any alcohol or drug abuse patient.[facility] HospitalIn the event this information is protected by the Federal Confidentiality of Alcohol and Drug Abuse Patient Records regulations: The Federal rules restrict any use of the information to criminally investigate or prosecute any alcohol or drug abuse patient.[facility] HospitalIn the event this information is protected by the Federal Confidentiality of Alcohol and Drug Abuse Patient Records regulations: The Federal rules restrict any use of the information to criminally investigate or prosecute any alcohol or drug abuse patient.[facility] HospitalIn the event this information is protected by the Federal Confidentiality of Alcohol and Drug Abuse Patient Records regulations: The Federal rules restrict any use of the information to criminally investigate or prosecute any alcohol or drug abuse patient.[facility] HospitalIn the event this information is protected by the Federal Confidentiality of Alcohol and Drug Abuse Patient Records regulations: The Federal rules restrict any use of the information to criminally investigate or prosecute any alcohol or drug abuse patient.[facility] HospitalIn the event this information is protected by the Federal Confidentiality of Alcohol and Drug Abuse Patient Records regulations: The Federal rules restrict any use of the information to criminally investigate or prosecute any alcohol or drug abuse patient.[facility] HospitalIn the event this information is protected by the Federal Confidentiality of Alcohol and Drug Abuse Patient Records regulations: The Federal rules restrict any use of the information to criminally investigate or prosecute any alcohol or drug abuse patient.[facility] HospitalIn the event this information is protected by the Federal Confidentiality of Alcohol and Drug Abuse Patient Records regulations: The Federal rules restrict any use of the information to criminally investigate or prosecute any alcohol or drug abuse patient.[facility] HospitalIn the event this information is protected by the Federal Confidentiality of Alcohol and Drug Abuse Patient Records regulations: The Federal rules restrict any use of the information to criminally investigate or prosecute any alcohol or drug abuse patient.[facility] HospitalIn the event this information is protected by the Federal Confidentiality of Alcohol and Drug Abuse Patient Records regulations: The Federal rules restrict any use of the information to criminally investigate or prosecute any alcohol or drug abuse patient.[facility] HospitalIn the event this information is protected by the Federal Confidentiality of Alcohol and Drug Abuse Patient Records regulations: The Federal rules restrict any use of the information to criminally investigate or prosecute any alcohol or drug abuse patient.[facility] HospitalIn the event this information is protected by the Federal Confidentiality of Alcohol and Drug Abuse Patient Records regulations: The Federal rules restrict any use of the information to criminally investigate or prosecute any alcohol or drug abuse patient.[facility] HospitalIn the event this information is protected by the Federal Confidentiality of Alcohol and Drug Abuse Patient Records regulations: The Federal rules restrict any use of the information to criminally investigate or prosecute any alcohol or drug abuse patient.[facility] HospitalIn the event this information is protected by the Federal Confidentiality of Alcohol and Drug Abuse Patient Records regulations: The Federal rules restrict any use of the information to criminally investigate or prosecute any alcohol or drug abuse patient.[facility] HospitalIn the event this information is protected by the Federal Confidentiality of Alcohol and Drug Abuse Patient Records regulations: The Federal rules restrict any use of the information to criminally investigate or prosecute any alcohol or drug abuse patient.[facility] HospitalIn the event this information is protected by the Federal Confidentiality of Alcohol and Drug Abuse Patient Records regulations: The Federal rules restrict any use of the information to criminally investigate or prosecute any alcohol or drug abuse patient.[facility] HospitalIn the event this information is protected by the Federal Confidentiality of Alcohol and Drug Abuse Patient Records regulations: The Federal rules restrict any use of the information to criminally investigate or prosecute any alcohol or drug abuse patient.[facility] HospitalIn the event this information is protected by the Federal Confidentiality of Alcohol and Drug Abuse Patient Records regulations: The Federal rules restrict any use of the information to criminally investigate or prosecute any alcohol or drug abuse patient.[facility] HospitalIn the event this information is protected by the Federal Confidentiality of Alcohol and Drug Abuse Patient Records regulations: The Federal rules restrict any use of the information to criminally investigate or prosecute any alcohol or drug abuse patient.[facility] HospitalIn the event this information is protected by the Federal Confidentiality of Alcohol and Drug Abuse Patient Records regulations: The Federal rules restrict any use of the information to criminally investigate or prosecute any alcohol or drug abuse patient.[facility] HospitalIn the event this information is protected by the Federal Confidentiality of Alcohol and Drug Abuse Patient Records regulations: The Federal rules restrict any use of the information to criminally investigate or prosecute any alcohol or drug abuse patient.[facility] HospitalIn the event this information is protected by the Federal Confidentiality of Alcohol and Drug Abuse Patient Records regulations: The Federal rules restrict any use of the information to criminally investigate or prosecute any alcohol or drug abuse patient.[facility] HospitalIn the event this information is protected by the Federal Confidentiality of Alcohol and Drug Abuse Patient Records regulations: The Federal rules restrict any use of the information to criminally investigate or prosecute any alcohol or drug abuse patient.[facility] HospitalIn the event this information is protected by the Federal Confidentiality of Alcohol and Drug Abuse Patient Records regulations: The Federal rules restrict any use of the information to criminally investigate or prosecute any alcohol or drug abuse patient.[facility] HospitalIn the event this information is protected by the Federal Confidentiality of Alcohol and Drug Abuse Patient Records regulations: The Federal rules restrict any use of the information to criminally investigate or prosecute any alcohol or drug abuse patient.[facility] HospitalIn the event this information is protected by the Federal Confidentiality of Alcohol and Drug Abuse Patient Records regulations: The Federal rules restrict any use of the information to criminally investigate or prosecute any alcohol or drug abuse patient.[facility] HospitalIn the event this information is protected by the Federal Confidentiality of Alcohol and Drug Abuse Patient Records regulations: The Federal rules restrict any use of the information to criminally investigate or prosecute any alcohol or drug abuse patient.[facility] HospitalIn the event this information is protected by the Federal Confidentiality of Alcohol and Drug Abuse Patient Records regulations: The Federal rules restrict any use of the information to criminally investigate or prosecute any alcohol or drug abuse patient.[facility] HospitalIn the event this information is protected by the Federal Confidentiality of Alcohol and Drug Abuse Patient Records regulations: The Federal rules restrict any use of the information to criminally investigate or prosecute any alcohol or drug abuse patient.[facility] HospitalIn the event this information is protected by the Federal Confidentiality of Alcohol and Drug Abuse Patient Records regulations: The Federal rules restrict any use of the information to criminally investigate or prosecute any alcohol or drug abuse patient.[facility] HospitalIn the event this information is protected by the Federal Confidentiality of Alcohol and Drug Abuse Patient Records regulations: The Federal rules restrict any use of the information to criminally investigate or prosecute any alcohol or drug abuse patient.[facility] HospitalIn the event this information is protected by the Federal Confidentiality of Alcohol and Drug Abuse Patient Records regulations: The Federal rules restrict any use of the information to criminally investigate or prosecute any alcohol or drug abuse patient.[facility] HospitalIn the event this information is protected by the Federal Confidentiality of Alcohol and Drug Abuse Patient Records regulations: The Federal rules restrict any use of the information to criminally investigate or prosecute any alcohol or drug abuse patient.[facility] HospitalIn the event this information is protected by the Federal Confidentiality of Alcohol and Drug Abuse Patient Records regulations: The Federal rules restrict any use of the information to criminally investigate or prosecute any alcohol or drug abuse patient.[facility] HospitalIn the event this information is protected by the Federal Confidentiality of Alcohol and Drug Abuse Patient Records regulations: The Federal rules restrict any use of the information to criminally investigate or prosecute any alcohol or drug abuse patient.[facility] HospitalIn the event this information is protected by the Federal Confidentiality of Alcohol and Drug Abuse Patient Records regulations: The Federal rules restrict any use of the information to criminally investigate or prosecute any alcohol or drug abuse patient.[facility] HospitalIn the event this information is protected by the Federal Confidentiality of Alcohol and Drug Abuse Patient Records regulations: The Federal rules restrict any use of the information to criminally investigate or prosecute any alcohol or drug abuse patient.[facility] HospitalIn the event this information is protected by the Federal Confidentiality of Alcohol and Drug Abuse Patient Records regulations: The Federal rules restrict any use of the information to criminally investigate or prosecute any alcohol or drug abuse patient.[facility] HospitalIn the event this information is protected by the Federal Confidentiality of Alcohol and Drug Abuse Patient Records regulations: The Federal rules restrict any use of the information to criminally investigate or prosecute any alcohol or drug abuse patient.[facility] HospitalIn the event this information is protected by the Federal Confidentiality of Alcohol and Drug Abuse Patient Records regulations: The Federal rules restrict any use of the information to criminally investigate or prosecute any alcohol or drug abuse patient.[facility] HospitalIn the event this information is protected by the Federal Confidentiality of Alcohol and Drug Abuse Patient Records regulations: The Federal rules restrict any use of the information to criminally investigate or prosecute any alcohol or drug abuse patient.[facility] HospitalIn the event this information is protected by the Federal Confidentiality of Alcohol and Drug Abuse Patient Records regulations: The Federal rules restrict any use of the information to criminally investigate or prosecute any alcohol or drug abuse patient.[facility] HospitalIn the event this information is protected by the Federal Confidentiality of Alcohol and Drug Abuse Patient Records regulations: The Federal rules restrict any use of the information to criminally investigate or prosecute any alcohol or drug abuse patient.[facility] HospitalIn the event this information is protected by the Federal Confidentiality of Alcohol and Drug Abuse Patient Records regulations: The Federal rules restrict any use of the information to criminally investigate or prosecute any alcohol or drug abuse patient.[facility] HospitalIn the event this information is protected by the Federal Confidentiality of Alcohol and Drug Abuse Patient Records regulations: The Federal rules restrict any use of the information to criminally investigate or prosecute any alcohol or drug abuse patient.[facility] HospitalIn the event this information is protected by the Federal Confidentiality of Alcohol and Drug Abuse Patient Records regulations: The Federal rules restrict any use of the information to criminally investigate or prosecute any alcohol or drug abuse patient.[facility] HospitalIn the event this information is protected by the Federal Confidentiality of Alcohol and Drug Abuse Patient Records regulations: The Federal rules restrict any use of the information to criminally investigate or prosecute any alcohol or drug abuse patient.[facility] HospitalIn the event this information is protected by the Federal Confidentiality of Alcohol and Drug Abuse Patient Records regulations: The Federal rules restrict any use of the information to criminally investigate or prosecute any alcohol or drug abuse patient.[facility] HospitalIn the event this information is protected by the Federal Confidentiality of Alcohol and Drug Abuse Patient Records regulations: The Federal rules restrict any use of the information to criminally investigate or prosecute any alcohol or drug abuse patient.[facility] HospitalIn the event this information is protected by the Federal Confidentiality of Alcohol and Drug Abuse Patient Records regulations: The Federal rules restrict any use of the information to criminally investigate or prosecute any alcohol or drug abuse patient.[facility] HospitalIn the event this information is protected by the Federal Confidentiality of Alcohol and Drug Abuse Patient Records regulations: The Federal rules restrict any use of the information to criminally investigate or prosecute any alcohol or drug abuse patient.[facility] HospitalIn the event this information is protected by the Federal Confidentiality of Alcohol and Drug Abuse Patient Records regulations: The Federal rules restrict any use of the information to criminally investigate or prosecute any alcohol or drug abuse patient.[facility] HospitalIn the event this information is protected by the Federal Confidentiality of Alcohol and Drug Abuse Patient Records regulations: The Federal rules restrict any use of the information to criminally investigate or prosecute any alcohol or drug abuse patient.[facility] HospitalIn the event this information is protected by the Federal Confidentiality of Alcohol and Drug Abuse Patient Records regulations: The Federal rules restrict any use of the information to criminally investigate or prosecute any alcohol or drug abuse patient.[facility] HospitalIn the event this information is protected by the Federal Confidentiality of Alcohol and Drug Abuse Patient Records regulations: The Federal rules restrict any use of the information to criminally investigate or prosecute any alcohol or drug abuse patient.[facility] HospitalIn the event this information is protected by the Federal Confidentiality of Alcohol and Drug Abuse Patient Records regulations: The Federal rules restrict any use of the information to criminally investigate or prosecute any alcohol or drug abuse patient.[facility] HospitalIn the event this information is protected by the Federal Confidentiality of Alcohol and Drug Abuse Patient Records regulations: The Federal rules restrict any use of the information to criminally investigate or prosecute any alcohol or drug abuse patient.[facility] HospitalIn the event this information is protected by the Federal Confidentiality of Alcohol and Drug Abuse Patient Records regulations: The Federal rules restrict any use of the information to criminally investigate or prosecute any alcohol or drug abuse patient.[facility] HospitalIn the event this information is protected by the Federal Confidentiality of Alcohol and Drug Abuse Patient Records regulations: The Federal rules restrict any use of the information to criminally investigate or prosecute any alcohol or drug abuse patient.[facility] HospitalIn the event this information is protected by the Federal Confidentiality of Alcohol and Drug Abuse Patient Records regulations: The Federal rules restrict any use of the information to criminally investigate or prosecute any alcohol or drug abuse patient.[facility] HospitalIn the event this information is protected by the Federal Confidentiality of Alcohol and Drug Abuse Patient Records regulations: The Federal rules restrict any use of the information to criminally investigate or prosecute any alcohol or drug abuse patient.[facility] HospitalIn the event this information is protected by the Federal Confidentiality of Alcohol and Drug Abuse Patient Records regulations: The Federal rules restrict any use of the information to criminally investigate or prosecute any alcohol or drug abuse patient.[facility] HospitalIn the event this information is protected by the Federal Confidentiality of Alcohol and Drug Abuse Patient Records regulations: The Federal rules restrict any use of the information to criminally investigate or prosecute any alcohol or drug abuse patient.[facility] HospitalIn the event this information is protected by the Federal Confidentiality of Alcohol and Drug Abuse Patient Records regulations: The Federal rules restrict any use of the information to criminally investigate or prosecute any alcohol or drug abuse patient.[facility] HospitalIn the event this information is protected by the Federal Confidentiality of Alcohol and Drug Abuse Patient Records regulations: The Federal rules restrict any use of the information to criminally investigate or prosecute any alcohol or drug abuse patient.[facility] HospitalIn the event this information is protected by the Federal Confidentiality of Alcohol and Drug Abuse Patient Records regulations: The Federal rules restrict any use of the information to criminally investigate or prosecute any alcohol or drug abuse patient.[facility] HospitalIn the event this information is protected by the Federal Confidentiality of Alcohol and Drug Abuse Patient Records regulations: The Federal rules restrict any use of the information to criminally investigate or prosecute any alcohol or drug abuse patient.[facility] HospitalIn the event this information is protected by the Federal Confidentiality of Alcohol and Drug Abuse Patient Records regulations: The Federal rules restrict any use of the information to criminally investigate or prosecute any alcohol or drug abuse patient.[facility] HospitalIn the event this information is protected by the Federal Confidentiality of Alcohol and Drug Abuse Patient Records regulations: The Federal rules restrict any use of the information to criminally investigate or prosecute any alcohol or drug abuse patient.[facility] HospitalIn the event this information is protected by the Federal Confidentiality of Alcohol and Drug Abuse Patient Records regulations: The Federal rules restrict any use of the information to criminally investigate or prosecute any alcohol or drug abuse patient.[facility] HospitalIn the event this information is protected by the Federal Confidentiality of Alcohol and Drug Abuse Patient Records regulations: The Federal rules restrict any use of the information to criminally investigate or prosecute any alcohol or drug abuse patient.[facility] HospitalIn the event this information is protected by the Federal Confidentiality of Alcohol and Drug Abuse Patient Records regulations: The Federal rules restrict any use of the information to criminally investigate or prosecute any alcohol or drug abuse patient.[facility] HospitalIn the event this information is protected by the Federal Confidentiality of Alcohol and Drug Abuse Patient Records regulations: The Federal rules restrict any use of the information to criminally investigate or prosecute any alcohol or drug abuse patient.[facility] HospitalIn the event this information is protected by the Federal Confidentiality of Alcohol and Drug Abuse Patient Records regulations: The Federal rules restrict any use of the information to criminally investigate or prosecute any alcohol or drug abuse patient.[facility] HospitalIn the event this information is protected by the Federal Confidentiality of Alcohol and Drug Abuse Patient Records regulations: The Federal rules restrict any use of the information to criminally investigate or prosecute any alcohol or drug abuse patient.[facility] HospitalIn the event this information is protected by the Federal Confidentiality of Alcohol and Drug Abuse Patient Records regulations: The Federal rules restrict any use of the information to criminally investigate or prosecute any alcohol or drug abuse patient.[facility] HospitalIn the event this information is protected by the Federal Confidentiality of Alcohol and Drug Abuse Patient Records regulations: The Federal rules restrict any use of the information to criminally investigate or prosecute any alcohol or drug abuse patient.[facility] HospitalIn the event this information is protected by the Federal Confidentiality of Alcohol and Drug Abuse Patient Records regulations: The Federal rules restrict any use of the information to criminally investigate or prosecute any alcohol or drug abuse patient.[facility] HospitalIn the event this information is protected by the Federal Confidentiality of Alcohol and Drug Abuse Patient Records regulations: The Federal rules restrict any use of the information to criminally investigate or prosecute any alcohol or drug abuse patient.[facility] HospitalIn the event this information is protected by the Federal Confidentiality of Alcohol and Drug Abuse Patient Records regulations: The Federal rules restrict any use of the information to criminally investigate or prosecute any alcohol or drug abuse patient.[facility] HospitalIn the event this information is protected by the Federal Confidentiality of Alcohol and Drug Abuse Patient Records regulations: The Federal rules restrict any use of the information to criminally investigate or prosecute any alcohol or drug abuse patient.[facility] HospitalIn the event this information is protected by the Federal Confidentiality of Alcohol and Drug Abuse Patient Records regulations: The Federal rules restrict any use of the information to criminally investigate or prosecute any alcohol or drug abuse patient.[facility] HospitalIn the event this information is protected by the Federal Confidentiality of Alcohol and Drug Abuse Patient Records regulations: The Federal rules restrict any use of the information to criminally investigate or prosecute any alcohol or drug abuse patient.[facility] HospitalIn the event this information is protected by the Federal Confidentiality of Alcohol and Drug Abuse Patient Records regulations: The Federal rules restrict any use of the information to criminally investigate or prosecute any alcohol or drug abuse patient.[facility] HospitalIn the event this information is protected by the Federal Confidentiality of Alcohol and Drug Abuse Patient Records regulations: The Federal rules restrict any use of the information to criminally investigate or prosecute any alcohol or drug abuse patient.[facility] HospitalIn the event this information is protected by the Federal Confidentiality of Alcohol and Drug Abuse Patient Records regulations: The Federal rules restrict any use of the information to criminally investigate or prosecute any alcohol or drug abuse patient.[facility] HospitalIn the event this information is protected by the Federal Confidentiality of Alcohol and Drug Abuse Patient Records regulations: The Federal rules restrict any use of the information to criminally investigate or prosecute any alcohol or drug abuse patient.[facility] HospitalIn the event this information is protected by the Federal Confidentiality of Alcohol and Drug Abuse Patient Records regulations: The Federal rules restrict any use of the information to criminally investigate or prosecute any alcohol or drug abuse patient.[facility] HospitalIn the event this information is protected by the Federal Confidentiality of Alcohol and Drug Abuse Patient Records regulations: The Federal rules restrict any use of the information to criminally investigate or prosecute any alcohol or drug abuse patient.[facility] HospitalIn the event this information is protected by the Federal Confidentiality of Alcohol and Drug Abuse Patient Records regulations: The Federal rules restrict any use of the information to criminally investigate or prosecute any alcohol or drug abuse patient.[facility] HospitalIn the event this information is protected by the Federal Confidentiality of Alcohol and Drug Abuse Patient Records regulations: The Federal rules restrict any use of the information to criminally investigate or prosecute any alcohol or drug abuse patient.[facility] HospitalIn the event this information is protected by the Federal Confidentiality of Alcohol and Drug Abuse Patient Records regulations: The Federal rules restrict any use of the information to criminally investigate or prosecute any alcohol or drug abuse patient.[facility] HospitalIn the event this information is protected by the Federal Confidentiality of Alcohol and Drug Abuse Patient Records regulations: The Federal rules restrict any use of the information to criminally investigate or prosecute any alcohol or drug abuse patient.[facility] HospitalIn the event this information is protected by the Federal Confidentiality of Alcohol and Drug Abuse Patient Records regulations: The Federal rules restrict any use of the information to criminally investigate or prosecute any alcohol or drug abuse patient.[facility] HospitalIn the event this information is protected by the Federal Confidentiality of Alcohol and Drug Abuse Patient Records regulations: The Federal rules restrict any use of the information to criminally investigate or prosecute any alcohol or drug abuse patient.[facility] HospitalIn the event this information is protected by the Federal Confidentiality of Alcohol and Drug Abuse Patient Records regulations: The Federal rules restrict any use of the information to criminally investigate or prosecute any alcohol or drug abuse patient.[facility] HospitalIn the event this information is protected by the Federal Confidentiality of Alcohol and Drug Abuse Patient Records regulations: The Federal rules restrict any use of the information to criminally investigate or prosecute any alcohol or drug abuse patient.[facility] HospitalIn the event this information is protected by the Federal Confidentiality of Alcohol and Drug Abuse Patient Records regulations: The Federal rules restrict any use of the information to criminally investigate or prosecute any alcohol or drug abuse patient.[facility] HospitalIn the event this information is protected by the Federal Confidentiality of Alcohol and Drug Abuse Patient Records regulations: The Federal rules restrict any use of the information to criminally investigate or prosecute any alcohol or drug abuse patient.[facility] HospitalIn the event this information is protected by the Federal Confidentiality of Alcohol and Drug Abuse Patient Records regulations: The Federal rules restrict any use of the information to criminally investigate or prosecute any alcohol or drug abuse patient.[facility] HospitalIn the event this information is protected by the Federal Confidentiality of Alcohol and Drug Abuse Patient Records regulations: The Federal rules restrict any use of the information to criminally investigate or prosecute any alcohol or drug abuse patient.[facility] HospitalIn the event this information is protected by the Federal Confidentiality of Alcohol and Drug Abuse Patient Records regulations: The Federal rules restrict any use of the information to criminally investigate or prosecute any alcohol or drug abuse patient.[facility] HospitalIn the event this information is protected by the Federal Confidentiality of Alcohol and Drug Abuse Patient Records regulations: The Federal rules restrict any use of the information to criminally investigate or prosecute any alcohol or drug abuse patient.[facility] HospitalIn the event this information is protected by the Federal Confidentiality of Alcohol and Drug Abuse Patient Records regulations: The Federal rules restrict any use of the information to criminally investigate or prosecute any alcohol or drug abuse patient.[facility] HospitalIn the event this information is protected by the Federal Confidentiality of Alcohol and Drug Abuse Patient Records regulations: The Federal rules restrict any use of the information to criminally investigate or prosecute any alcohol or drug abuse patient.[facility] HospitalIn the event this information is protected by the Federal Confidentiality of Alcohol and Drug Abuse Patient Records regulations: The Federal rules restrict any use of the information to criminally investigate or prosecute any alcohol or drug abuse patient.[facility] HospitalIn the event this information is protected by the Federal Confidentiality of Alcohol and Drug Abuse Patient Records regulations: The Federal rules restrict any use of the information to criminally investigate or prosecute any alcohol or drug abuse patient.[facility] HospitalIn the event this information is protected by the Federal Confidentiality of Alcohol and Drug Abuse Patient Records regulations: The Federal rules restrict any use of the information to criminally investigate or prosecute any alcohol or drug abuse patient.[facility] HospitalIn the event this information is protected by the Federal Confidentiality of Alcohol and Drug Abuse Patient Records regulations: The Federal rules restrict any use of the information to criminally investigate or prosecute any alcohol or drug abuse patient.[facility] HospitalIn the event this information is protected by the Federal Confidentiality of Alcohol and Drug Abuse Patient Records regulations: The Federal rules restrict any use of the information to criminally investigate or prosecute any alcohol or drug abuse patient.[facility] HospitalIn the event this information is protected by the Federal Confidentiality of Alcohol and Drug Abuse Patient Records regulations: The Federal rules restrict any use of the information to criminally investigate or prosecute any alcohol or drug abuse patient.[facility] HospitalIn the event this information is protected by the Federal Confidentiality of Alcohol and Drug Abuse Patient Records regulations: The Federal rules restrict any use of the information to criminally investigate or prosecute any alcohol or drug abuse patient.[facility] HospitalIn the event this information is protected by the Federal Confidentiality of Alcohol and Drug Abuse Patient Records regulations: The Federal rules restrict any use of the information to criminally investigate or prosecute any alcohol or drug abuse patient.[facility] HospitalIn the event this information is protected by the Federal Confidentiality of Alcohol and Drug Abuse Patient Records regulations: The Federal rules restrict any use of the information to criminally investigate or prosecute any alcohol or drug abuse patient.[facility] HospitalIn the event this information is protected by the Federal Confidentiality of Alcohol and Drug Abuse Patient Records regulations: The Federal rules restrict any use of the information to criminally investigate or prosecute any alcohol or drug abuse patient.[facility] HospitalIn the event this information is protected by the Federal Confidentiality of Alcohol and Drug Abuse Patient Records regulations: The Federal rules restrict any use of the information to criminally investigate or prosecute any alcohol or drug abuse patient.[facility] Reason for Visit (unrecogniz ed section and content) Reason Comments Ear Problem follow upright ear a nd nose bleeds Specialty Diagnoses / Procedures Referred By Contact Referred To Contact Ent - Otolaryngology / ENT-OTOLARYNGOLOGY Diagnoses 6 mo follow up Procedures BD WHOLE BODY COMPOSITION UNLISTED CHEMISTRY TEST CLINIC VISIT NO CHARGE EST PATIENT VISIT LEVEL 5 EST HNI PATIENT Flash Pearl MD [address] [place] [address] [place] [address] [place] [address] Referral ID Status Reason Start Date Expiration Date Visits Re quested Visits Authorized [id number] Closed 07/09/2021 07/27/2021 99 99 Specialty Diagnoses [...] RETACRIT NON-ESRD USE (RETACRIT) Asher Hummel MD [address] [place] [address] [place] [address] Sam Treat [address] [place] [address] Referral ID Status Reason Start Date Expiration Date V isits Requested Visits Authorized [id number] Authorized 08/06/2021 02/01/2022 37 37 Reason Comments myeldysplastic syndrome followup Specialty Diagnoses / Procedures Referred By Contac t Referred To Contact Diagnoses Myelodysplastic syndrome (HCC) Procedures AZACITIDINE INJECTION PALONOSETRON HCL Asher Hummel MD [address] [place] [address] [place] [address] Sam Treat [address] [place] [address] Referral ID Status Reason Start Date Expiration Date V isits Requested Visits Authorized [id number] Authorized 06/28/2021 07/27/2022 99 99 Reason Comments [...] Expiration Date V isits Requested Visits Authorized [id number] Waiting for Response 08/06/2021 02/01/2022 37 37 Reason Comments Transfusion Reason Comments Care Coordination Results Reason Comments Care Coordination Lab results Referral ID Status Reason Start Date Expiration Date V isits Requested Visits Authorized [id number] Authorized 02/25/2022 04/25/2022 42 42 Reason Comments Results Reason Comments Care Coordination Referral Reason Comments Care Coordination Appointment Reason Comments Results CBC Reason Comments Patient Update Reason Comments Consult Specialty Diagnoses / Procedures Referred By Contac t Referred To Contact Diagnoses Myelodysplastic syndrome (HCC) Procedures CONSULT TO HEMATOLOGY/ONCOLOGY OFFICE/OUTPATIENT [facility] MDM 60-74 MINUTES Asher Hummel MD [address] [place] [address] Referral ID Status Reason Start Date Expiration Date V isits Requested Visits Authorized [id number] Closed PCP Requested Referral 03/15/2022 03/15/2023 1 [...] NON-ESRD USE (RETACRIT) Asher Hummel MD [address] [place] [address] Sam Treat [facility] [address] [place] [address] Referral ID Status Reason Start Date Expiration Date V isits Requested Visits Authorized [id number] Authorized 04/29/2022 06/27/2022 99 99 Reason Comments Myelodysplastic Syndrome 1 week follow u p Reason Comments Care Coordination Treatment Planning Reason Comments Care Coordination Antiemetics Reason Comments Care Coordination C1D1 Post Treatment Call Reason Comments MDS Follow up Reason Comments Prostate Cancer Followup Referral ID Status Reason Start Date Expiration Date V isits Requested Visits Authorized [id number] Authorized 04/29/2022 06/27/2022 15 15 Reason Comments Critical Results Referral ID Status Reason Start Date Expiration Date V isits Requested Visits Authorized [id number] Authorized 04/29/2022 06/27/2022 19 19 Reason Comments MDS 1 week follow up Referral ID Status Reason Start Date Expiration Date V isits Requested Visits Authorized [id number] Authorized 04/29/2022 12/24/2022 45 45 Reason Comments Care Coordination Oxygen Question Reason Comments Established Patient Reason Comments Retacrit Injection Reason Comments MDS OTV 1 week Reason Comments Care Coordination Order Request Reason Comments Care Coordination Transfusion Question Reason Comments Treatment Planning Reason Comments Care Coordination Medication Authoriza tion Referral ID Status Reason Start Date Expiration Date Visits Re quested Visits Authorized [id number] Closed 04/29/2022 12/24/2022 45 45 Reason Comments [...] Care Teams (unrecognized sec tion and content) Cartridge Gauger Relationship Specialty Start Date End Date Flash Pearl MD [address] [place] [address] PCP - General 11/12/00 Sheng Gomez MD [address] [place], [place] [id number] Doughnut Icer Machine Cardiology 09/20/20 Asher Hummel MD [address] [place] [address] Physician Hematology/Oncology 06/29/21 Wilfred Martinez APRN.LINUX SUPPORT ENGINEER [address] [place] [address] Nurse Practitioner Hematology/Oncology 06/29/21 Angle Kamara, MONET [address] [place] [address] Specialty Airway Controller Hematology/Oncology 06/29/21 Cartridge Gauger Relationship Specialty Start Date End Date Flash Pearl MD [address] [place] [address] PCP - General 11/12/00 Sheng Gomez MD [address] [place] [address] Doughnut Icer Machine Cardiology 09/20/20 Asher Hummel MD [address] [place] [address] Physician Hematology/Oncology 06/29/21 Wilfred Martinez, RADIO MECHANIC.LINUX SUPPORT ENGINEER [address] [facility] [place] [address] Nurse Practitioner Hematology/Oncology 06/29/21 Angle Kamara, MONET [address] [facility] [place] [address] Specialty Airway Controller Hematology/Oncology 06/29/21 Cartridge Gauger Relationship Specialty Start Date End Date Flash Pearl MD [address] [place] [address] PCP - General 11/12/00 Sheng Gomez MD [address] [place] [address] Doughnut Icer Machine Cardiology 09/20/20 Asher Hummel MD [address] [facility] [place] [address] Physician Hematology/Oncology 06/29/21 Wilfred Martinez, RADIO MECHANIC.[facility] [address] [place] [address] Nurse Practitioner Hematology/Oncology 06/29/21 Angle Kamara, MONET [address] [place] [address] Specialty Airway Controller Hematology/Oncology 06/29/21 Cartridge Gauger Relationship Specialty Start Date End Date Flash Pearl MD [address] [place] [address] PCP - General 11/12/00 Sheng Gomez MD [address] [place] [address] Doughnut Icer Machine Cardiology 09/20/20 Asher Hummel MD [address] [facility] [place] [address] Physician Hematology/Oncology 06/29/21 Wilfred Martinez, RADIO MECHANIC.LINUX SUPPORT ENGINEER [address] [facility] [place] [address] Nurse Practitioner Hematology/Oncology 06/29/21 Angle Kamara, MONET [address] [place] [address] Specialty Airway Controller Hematology/Oncology 06/29/21 Cartridge Gauger Relationship Specialty Start Date End Date Flash Pearl MD [address] [place] [address] PCP - General 11/12/00 Sheng Gomez MD [address] [place] [address] Doughnut Icer Machine Cardiology 09/20/20 Asher Hummel MD [address] [facility] [place] [address] Physician Hematology/Oncology 06/29/21 Wilfred Martinez, RADIO MECHANIC.LINUX SUPPORT ENGINEER [address] [place] [address] Nurse Practitioner Hematology/Oncology 06/29/21 Angle Kamara, RN [address] [facility] [place] [address] Specialty Airway Controller Hematology/Oncology 06/29/21 Cartridge Gauger Relationship Specialty Start Date End Date Flash Pearl MD [address] [place] [address] PCP - General 11/12/00 Sheng Gomez MD [address] [place] [address] Doughnut Icer Machine Cardiology 09/20/20 Asher Hummel MD [address] [facility] [place] [address] Physician Hematology/Oncology 06/29/21 Wilfred Martinez, RADIO MECHANIC.LINUX SUPPORT ENGINEER [address] [facility] [place] [address] Nurse Practitioner Hematology/Oncology 06/29/21 Angle Kamara, MONET [address] [facility] [place] [address] Specialty Airway Controller Hematology/Oncology 06/29/21 Cartridge Gauger Relationship Specialty Start Date End Date Flash Pearl MD [address] [place] [address] PCP - General 11/12/00 Sheng Gomez MD [address] [place] [address] Doughnut Icer Machine Cardiology 09/20/20 Asher Hummel MD [address] [facility] [place] [address] Physician Hematology/Oncology 06/29/21 Wilfred Martinez, RADIO MECHANIC.LINUX SUPPORT ENGINEER [address] [facility] [place] [address] Nurse Practitioner Hematology/Oncology 06/29/21 Angle Kamara, RN [address] [facility] [place] [address] Specialty Airway Controller Hematology/Oncology 06/29/21 Cartridge Gauger Relationship Specialty Start Date End Date Flash Pearl MD [address] [place] [address] PCP - General 11/12/00 Sheng Gomez MD [address] [place] [address] Doughnut Icer Machine Cardiology 09/20/20 Asher Hummel MD [address] [facility] [place] [address] Physician Hematology/Oncology 06/29/21 Wilfred Martinez, RADIO MECHANIC.LINUX SUPPORT ENGINEER [address] [place] [address] Nurse Practitioner Hematology/Oncology 06/29/21 Angle Kamara, MONET [address] [facility] [place] [address] Specialty Airway Controller Hematology/Oncology 06/29/21 Cartridge Gauger Relationship Specialty Start Date End Date Flash Pearl MD [address] [place] [address] PCP - General 11/12/00 Sheng Gomez MD [address] [place] [address] Doughnut Icer Machine Cardiology 09/20/20 Asher Hummel MD [address] [facility] [place] [address] Physician Hematology/Oncology 06/29/21 Wilfred Martinez, RADIO MECHANIC.LINUX SUPPORT ENGINEER [address] [facility] [place] [address] Nurse Practitioner Hematology/Oncology 06/29/21 Angle Kamara, MONET [address] [facility] [place] [address] Specialty Airway Controller Hematology/Oncology 06/29/21 Cartridge Gauger Relationship Specialty Start Date End Date Flash Pearl MD [address] [place] [address] PCP - General 11/12/00 Sheng Gomez MD [address] [place] [address] Doughnut Icer Machine Cardiology 09/20/20 Asher Hummel MD [address] [facility] [place] [address] Physician Hematology/Oncology 06/29/21 Wilfred Martinez, RADIO MECHANIC.LINUX SUPPORT ENGINEER [address] [facility] [place] [address] Nurse Practitioner Hematology/Oncology 06/29/21 Angle Kamara RN [address] [facility] [place] [address] Specialty Airway Controller Hematology/Oncology 06/29/21 Cartridge Gauger Relationship Specialty Start Date End Date Flash Pearl MD [address] [place] [address] PCP - General 11/12/00 Sheng Gomez MD [address] [place] [address] Doughnut Icer Machine Cardiology 09/20/20 Asher Hummel MD [address] [facility] [place] [address] Physician Hematology/Oncology 06/29/21 Wilfred Martinez, RADIO MECHANIC.LINUX SUPPORT ENGINEER [address] [facility] [place] [address] Nurse Practitioner Hematology/Oncology 06/29/21 Angle Kamara, MONET [address] [facility] [place] [address] Specialty Airway Controller Hematology/Oncology 06/29/21 Cartridge Gauger Relationship Specialty Start Date End Date Flash Pearl MD [address] [place] [address] PCP - General 11/12/00 Sheng Gomez MD [address] [place] [address] Doughnut Icer Machine Cardiology 09/20/20 Asher Hummel MD [address] [facility] [place] [address] Physician Hematology/Oncology 06/29/21 Wilfred Martinez, RADIO MECHANIC.LINUX SUPPORT ENGINEER [address] [facility] [place] [address] Nurse Practitioner Hematology/Oncology 06/29/21 Angle Kamara, MONET [address] [facility] [place] [address] Specialty Airway Controller Hematology/Oncology 06/29/21 Cartridge Gauger Relationship Specialty Start Date End Date Flash Pearl MD [address] [place] [address] PCP - General 11/12/00 Sheng Gomez MD [address] [place] [address] Doughnut Icer Machine Cardiology 09/20/20 Asher Hummel MD [address] [facility] [place] [address] Physician Hematology/Oncology 06/29/21 Wilfred Martinez, RADIO MECHANIC.LINUX SUPPORT ENGINEER [address] [facility] [place] [address] Nurse Practitioner Hematology/Oncology 06/29/21 Angle Kamara, RN [address] [facility] [place] [address] Specialty Airway Controller Hematology/Oncology 06/29/21 Cartridge Gauger Relationship Specialty Start Date End Date Flash Pearl MD [address] [place] [address] PCP - General 11/12/00 Sheng Gomez MD [address] [place] [address] Doughnut Icer Machine Cardiology 09/20/20 Asher Hummel MD [address] [facility] [place] [address] Physician Hematology/Oncology 06/29/21 Wilfred Martinez, RADIO MECHANIC.LINUX SUPPORT ENGINEER [address] [facility] [place] [address] Nurse Practitioner Hematology/Oncology 06/29/21 Angle Kamara, MONET [address] [facility] [place] [address] Specialty Airway Controller Hematology/Oncology 06/29/21 Cartridge Gauger Relationship Specialty Start Date End Date Flash Pearl MD [address] [place] [address] PCP - General 11/12/00 Sheng Gomez MD [address] [place] [address] Doughnut Icer Machine Cardiology 09/20/20 Asher Hummel MD [address] [facility] [place] [address] Physician Hematology/Oncology 06/29/21 Wilfred Martinez, RADIO MECHANIC.LINUX SUPPORT ENGINEER [address] [place] [address] [place] [address] Nurse Practitioner Hematology/Oncology 06/29/21 Angle Kamara, MONET [address] [facility] [place] [address] Specialty Airway Controller Hematology/Oncology 06/29/21 Cartridge Gauger Relationship Specialty Start Date End Date Flash Pearl MD [address] [place] [address] PCP - General 11/12/00 Sheng Gomez MD [address] [place] [address] Doughnut Icer Machine Cardiology 09/20/20 Asher Hummel MD [address] [facility] [place] [address] Physician Hematology/Oncology 06/29/21 Wilfred Martinez, RADIO MECHANIC.[facility] [address] [facility] [place] [address] Nurse Practitioner Hematology/Oncology 06/29/21 Angle Kamara, MONET [address] [facility] [place] [address] Specialty Airway Controller Hematology/Oncology 06/29/21 Cartridge Gauger Relationship Specialty Start Date End Date Flash Pearl MD [address] [place] [address] PCP - General 11/12/00 Sheng Gomez MD [address] [place] [address] Doughnut Icer Machine Cardiology 09/20/20 Asher Hummel MD [address] [facility] [address] [place], [place] [address] Physician Hematology/Oncology 06/29/21 Wilfred Martinez, RADIO MECHANIC.LINUX SUPPORT ENGINEER [address] [facility] [place] [address] Nurse Practitioner Hematology/Oncology 06/29/21 Angle Kamara, RN [address] [facility] [place] [address] Specialty Airway Controller Hematology/Oncology 06/29/21 Cartridge Gauger Relationship Specialty Start Date End Date Flash Pearl MD [address] [place] [address] PCP - General 11/12/00 Sheng Gomez MD [address] [place] [address] Doughnut Icer Machine Cardiology 09/20/20 Asher Hummel MD [address] [facility] [place] [address] Physician Hematology/Oncology 06/29/21 Wilfred Martinez, RADIO MECHANIC.LINUX SUPPORT ENGINEER [address] [facility] [place] [address] Nurse Practitioner Hematology/Oncology 06/29/21 Angle Kamara, RN [address] [facility] [place] [address] Specialty Airway Controller Hematology/Oncology 06/29/21 Cartridge Gauger Relationship Specialty Start Date End Date Flash Pearl MD [address] [place] [address] PCP - General 11/12/00 Sheng Gomez MD [address] [place] [address] Doughnut Icer Machine Cardiology 09/20/20 Asher Hummel MD [address] [facility] [place] [address] Physician Hematology/Oncology 06/29/21 Wilfred Martinez, RADIO MECHANIC.LINUX SUPPORT ENGINEER [address] [facility] [place] [address] Nurse Practitioner Hematology/Oncology 06/29/21 Angle Kamara, MONET [address] [facility] [place] [address] Specialty Airway Controller Hematology/Oncology 06/29/21 Cartridge Gauger Relationship Specialty Start Date End Date Flash Pearl MD [address] [place] [address] PCP - General 11/12/00 Sheng Gomez MD [address] [place] [address] Doughnut Icer Machine Cardiology 09/20/20 Asher Hummel MD [address] [facility] [place] [address] Physician Hematology/Oncology 06/29/21 Wilfred Martinez, RADIO MECHANIC.LINUX SUPPORT ENGINEER [address] [facility] [place] [address] Nurse Practitioner Hematology/Oncology 06/29/21 Angle Kamara, RN [address] [facility] [place] [address] Specialty Airway Controller Hematology/Oncology 06/29/21 Cartridge Gauger Relationship Specialty Start Date End Date Flash Pearl MD [address] [place] [address] PCP - General 11/12/00 Sheng Gomez MD [address] [place] [address] Doughnut Icer Machine Cardiology 09/20/20 Asher Hummel MD [address] [facility] [place] [address] Physician Hematology/Oncology 06/29/21 Wilfred Martinez, RADIO MECHANIC.LINUX SUPPORT ENGINEER [address] [facility] [place] [address] Nurse Practitioner Hematology/Oncology 06/29/21 Angle Kamara, RN [address] [facility] [place] [address] Specialty Airway Controller Hematology/Oncology 06/29/21 Cartridge Gauger Relationship Specialty Start Date End Date Flash Pearl MD [address] [place] [address] PCP - General 11/12/00 Sheng Gomez MD [address] [place] [address] Doughnut Icer Machine Cardiology 09/20/20 Asher Hummel MD [address] [facility] [place] [address] Physician Hematology/Oncology 06/29/21 Wilfred Martinez, RADIO MECHANIC.LINUX SUPPORT ENGINEER [address] [facility] [place] [address] Nurse Practitioner Hematology/Oncology 06/29/21 Angle Kamara, RN [address] [facility] [place] [address] Specialty Airway Controller Hematology/Oncology 06/29/21 Cartridge Gauger Relationship Specialty Start Date End Date Flash Pearl MD [address] [place] [address] PCP - General 11/12/00 Sheng Gomez MD [address] [place] [address] Doughnut Icer Machine Cardiology 09/20/20 Asher Hummel MD [address] [facility] [place] [address] Physician Hematology/Oncology 06/29/21 Wilfred Martinez, RADIO MECHANIC.LINUX SUPPORT ENGINEER [address] [facility] [place] [address] Nurse Practitioner Hematology/Oncology 06/29/21 Angle Kamara, MONET [address] [facility] [place] [address] Specialty Airway Controller Hematology/Oncology 06/29/21 Cartridge Gauger Relationship Specialty Start Date End Date Flash Pearl MD [address] [place] [address] PCP - General 11/12/00 Sheng Gomez MD [address] [place] [address] Doughnut Icer Machine Cardiology 09/20/20 Asher Hummel MD [address] [facility] [place] [address] Physician Hematology/Oncology 06/29/21 Wilfred Martinez, RADIO MECHANIC.LINUX SUPPORT ENGINEER [address] [facility] [place] [address] Nurse Practitioner Hematology/Oncology 06/29/21 Angle Kamara, MONET [address] [facility] [place] [address] Specialty Airway Controller Hematology/Oncology 06/29/21 Cartridge Gauger Relationship Specialty Start Date End Date Flash Pearl MD [address] [place] [address] PCP - General 11/12/00 Sheng Gomez MD [address] [place] [address] Doughnut Icer Machine Cardiology 09/20/20 Asher Hummel MD [address] [facility] [place] [address] Physician Hematology/Oncology 06/29/21 Wilfred Martinez, RADIO MECHANIC.LINUX SUPPORT ENGINEER [address] [facility] [place] [address] Nurse Practitioner Hematology/Oncology 06/29/21 Angle Kamara, MONET [address] [facility] [place] [address] Specialty Airway Controller Hematology/Oncology 06/29/21 Cartridge Gauger Relationship Specialty Start Date End Date Flash Pearl MD [address] [place] [address] PCP - General 11/12/00 Sheng Gomez MD [address] [place] [address] Doughnut Icer Machine Cardiology 09/20/20 Asher Hummel MD [address] [facility] [place] [address] Physician Hematology/Oncology 06/29/21 Wilfred Martinez, RADIO MECHANIC.LINUX SUPPORT ENGINEER [address] [facility] [place] [address] Nurse Practitioner Hematology/Oncology 06/29/21 Angle Kamara, MONET [address] [facility] [place] [address] Specialty Airway Controller Hematology/Oncology 06/29/21 Cartridge Gauger Relationship Specialty Start Date End Date Flash Pearl MD [address] [place] [address] PCP - General 11/12/00 Sheng Gomez MD [address] [place] [address] Doughnut Icer Machine Cardiology 09/20/20 Asher Hummel MD [address] [facility] [place] [address] Physician Hematology/Oncology 06/29/21 Wilfred Martinez, RADIO MECHANIC.LINUX SUPPORT ENGINEER [address] [facility] [place] [address] Nurse Practitioner Hematology/Oncology 06/29/21 Angle Kamara, MONET [address] [facility] [place] [address] Specialty Airway Controller Hematology/Oncology 06/29/21 Cartridge Gauger Relationship Specialty Start Date End Date Flash Pearl MD [address] [place] [address] PCP - General 11/12/00 Sheng Gomez MD [address] [place] [address] Doughnut Icer Machine Cardiology 09/20/20 Asher Hummel MD [address] [facility] [place] [address] Physician Hematology/Oncology 06/29/21 Wilfred Martinez, RADIO MECHANIC.LINUX SUPPORT ENGINEER [address] [facility] [place] [address] Nurse Practitioner Hematology/Oncology 06/29/21 Angle Kamara, MONET [address] [facility] [place] [address] Specialty Airway Controller Hematology/Oncology 06/29/21 Cartridge Gauger Relationship Specialty Start Date End Date Flash Pearl MD [address] [place] [address] PCP - General 11/12/00 Sheng Gomez MD [address] [place] [address] Doughnut Icer Machine Cardiology 09/20/20 Asher Hummel MD [address] [facility] [place] [address] Physician Hematology/Oncology 06/29/21 Wilfred Martinez, RADIO MECHANIC.LINUX SUPPORT ENGINEER [address] [facility] [place] [address] Nurse Practitioner Hematology/Oncology 06/29/21 Angle Kamara, MONET [address] [facility] [place] [address] Specialty Airway Controller Hematology/Oncology 06/29/21 Cartridge Gauger Relationship Specialty Start Date End Date Flash Pearl MD [address] [place] [address] PCP - General 11/12/00 Sheng Gomez MD [address] [place] [address] Doughnut Icer Machine Cardiology 09/20/20 Asher Hummel MD [address] [facility] [place] [address] Physician Hematology/Oncology 06/29/21 Wilfred Martinez, RADIO MECHANIC.LINUX SUPPORT ENGINEER [address] [facility] [place] [address] Nurse Practitioner Hematology/Oncology 06/29/21 Angle Kamara, MONET [address] [facility] [place] [address] Specialty Airway Controller Hematology/Oncology 06/29/21 Cartridge Gauger Relationship Specialty Start Date End Date Flash Pearl MD [address] [place] [address] PCP - General 11/12/00 Sheng Gomez MD [address] [place] [address] Doughnut Icer Machine Cardiology 09/20/20 Asher Hummel MD [address] [facility] [place] [address] Physician Hematology/Oncology 06/29/21 Wilfred Martinez, RADIO MECHANIC.LINUX SUPPORT ENGINEER [address] [facility] [place] [address] Nurse Practitioner Hematology/Oncology 06/29/21 Angle Kamara, MONET [address] [facility] [place] [address] Specialty Airway Controller Hematology/Oncology 06/29/21 Cartridge Gauger Relationship Specialty Start Date End Date Flash Pearl MD [address] [place] [address] PCP - General 11/12/00 Sheng Gomez MD [address] [place] [address] Doughnut Icer Machine Cardiology 09/20/20 Asher Hummel MD [address] [facility] [place] [address] Physician Hematology/Oncology 06/29/21 Wilfred Martinez, RADIO MECHANIC.LINUX SUPPORT ENGINEER [address] [facility] [place] [address] Nurse Practitioner Hematology/Oncology 06/29/21 Angle Kamara, MONET [address] [facility] [place] [address] Specialty Airway Controller Hematology/Oncology 06/29/21 Cartridge Gauger Relationship Specialty Start Date End Date Flash Pearl MD [address] [place] [address] PCP - General 11/12/00 Sheng Gomez MD [address] [place] [address] Doughnut Icer Machine Cardiology 09/20/20 Asher Hummel MD [address] [facility] [place] [address] Physician Hematology/Oncology 06/29/21 Wilfred Martinez, RADIO MECHANIC.LINUX SUPPORT ENGINEER [address] [facility] [place] [address] Nurse Practitioner Hematology/Oncology 06/29/21 Angle Kamara, MONET [address] [facility] [place] [address] Specialty Airway Controller Hematology/Oncology 06/29/21 Cartridge Gauger Relationship Specialty Start Date End Date Flash Pearl MD [address] [place] [address] PCP - General 11/12/00 Sheng Gomez MD [address] [place] [address] Doughnut Icer Machine Cardiology 09/20/20 Asher Hummel MD [address] [facility] [place] [address] Physician Hematology/Oncology 06/29/21 Wilfred Martinez, RADIO MECHANIC.LINUX SUPPORT ENGINEER [address] [facility] [place] [address] Nurse Practitioner Hematology/Oncology 06/29/21 Angle Kamara, RN [address] [facility] [place] [address] Specialty Airway Controller Hematology/Oncology 06/29/21 Cartridge Gauger Relationship Specialty Start Date End Date Flash Pearl MD [address] [place] [id number] PCP - General 11/12/00 Sheng Gomez MD [address] [place] [address] Doughnut Icer Machine Cardiology 09/20/20 Asher Hummel MD [address] [facility] [place] [address] Physician Hematology/Oncology 06/29/21 Wilfred Martinez, RADIO MECHANIC.LINUX SUPPORT ENGINEER [address] [facility] [place] [address] Nurse Practitioner Hematology/Oncology 06/29/21 Angle Kamara, RN [address] [facility] [place] [address] Specialty Airway Controller Hematology/Oncology 06/29/21 Cartridge Gauger Relationship Specialty Start Date End Date Flash Pearl MD [address] [place] [address] PCP - General 11/12/00 Sheng Gomez MD [address] [place] [address] Doughnut Icer Machine Cardiology 09/20/20 Asher Hummel MD [address] [facility] [place] [address] Physician Hematology/Oncology 06/29/21 Wilfred Martinez, RADIO MECHANIC.LINUX SUPPORT ENGINEER [address] [facility] [place] [address] Nurse Practitioner Hematology/Oncology 06/29/21 Angle Kamara, RN [address] [facility] [place] [address] Specialty Airway Controller Hematology/Oncology 06/29/21 Cartridge Gauger Relationship Specialty Start Date End Date Flash Pearl MD [address] [place] [address] PCP - General 11/12/00 Sheng Gomez MD [address] [place] [address] Doughnut Icer Machine Cardiology 09/20/20 Asher Hummel MD [address] [facility] [place] [address] Physician Hematology/Oncology 06/29/21 Wilfred Martinez, RADIO MECHANIC.LINUX SUPPORT ENGINEER [address] [facility] [place] [address] Nurse Practitioner Hematology/Oncology 06/29/21 Angle Kamara, RN [address] [facility] [place] [address] Specialty Airway Controller Hematology/Oncology 06/29/21 Cartridge Gauger Relationship Specialty Start Date End Date Flash Pearl MD [address] [place] [address] PCP - General 11/12/00 Sheng Gomez MD [address] [place] [address] Doughnut Icer Machine Cardiology 09/20/20 Asher Hummel MD [address] [facility] [place] [address] Physician Hematology/Oncology 06/29/21 Wilfred Martinez, RADIO MECHANIC.LINUX SUPPORT ENGINEER [address] [facility] [place] [address] Nurse Practitioner Hematology/Oncology 06/29/21 Angle Kamara, MONET [address] [facility] [place] [address] Specialty Airway Controller Hematology/Oncology 06/29/21 Cartridge Gauger Relationship Specialty Start Date End Date Flash Pearl MD [address] [place] [address] PCP - General 11/12/00 Sheng Gomez MD [address] [place] [address] Doughnut Icer Machine Cardiology 09/20/20 Asher Hummel MD [address] [facility] [place] [address] Physician Hematology/Oncology 06/29/21 Wilfred Martinez, RADIO MECHANIC.LINUX SUPPORT ENGINEER [address] [facility] [place] [address] Nurse Practitioner Hematology/Oncology 06/29/21 Angle Kamara, MONET [address] [facility] [place] [address] Specialty Airway Controller Hematology/Oncology 06/29/21 Cartridge Gauger Relationship Specialty Start Date End Date Flash Pearl MD [address] [place] [address] PCP - General 11/12/00 Sheng Gomez MD [address] [place] [address] Doughnut Icer Machine Cardiology 09/20/20 Asher Hummel MD [address] [facility] [place] [address] Physician Hematology/Oncology 06/29/21 Wilfred Martinez, RADIO MECHANIC.LINUX SUPPORT ENGINEER [address] [facility] [place] [address] Nurse Practitioner Hematology/Oncology 06/29/21 Angle Kamara, RN [address] [facility] [place] [address] Specialty Airway Controller Hematology/Oncology 06/29/21 Cartridge Gauger Relationship Specialty Start Date End Date Flash Pearl MD [address] [place] [address] PCP - General 11/12/00 Sheng Gomez MD [address] [place] [address] Doughnut Icer Machine Cardiology 09/20/20 Asher Hummel MD [address] [facility] [place] [address] Physician Hematology/Oncology 06/29/21 Wilfred Martinez, RADIO MECHANIC.LINUX SUPPORT ENGINEER [address] [facility] [place] [address] Nurse Practitioner Hematology/Oncology 06/29/21 Angle Kamara, MONET [address] [facility] [place] [address] Specialty Airway Controller Hematology/Oncology 06/29/21 Cartridge Gauger Relationship Specialty Start Date End Date Flash Pearl MD [address] [place] [address] PCP - General 11/12/00 Sheng Gomez MD [address] [place] [address] Doughnut Icer Machine Cardiology 09/20/20 Asher Hummel MD [address] [facility] [place] [address] Physician Hematology/Oncology 06/29/21 Wilfred Martinez, RADIO MECHANIC.LINUX SUPPORT ENGINEER [address] [facility] [place] [address] Nurse Practitioner Hematology/Oncology 06/29/21 Angle Kamara, MONET [address] [facility] [place] [address] Specialty Airway Controller Hematology/Oncology 06/29/21 Cartridge Gauger Relationship Specialty Start Date End Date Flash Pearl MD [address] [place] [address] PCP - General 11/12/00 Sheng Gomez MD [address] [place] [address] Doughnut Icer Machine Cardiology 09/20/20 Asher Hummel MD [address] [facility] [place] [address] Physician Hematology/Oncology 06/29/21 Wilfred Martinez, RADIO MECHANIC.LINUX SUPPORT ENGINEER [address] [facility] [place] [address] Nurse Practitioner Hematology/Oncology 06/29/21 Angle Kamara, MONET [address] [facility] [place] [address] Specialty Airway Controller Hematology/Oncology 06/29/21 Cartridge Gauger Relationship Specialty Start Date End Date Flash Pearl MD [address] [place] [address] PCP - General 11/12/00 Sheng Gomez MD [address] [place] [address] Doughnut Icer Machine Cardiology 09/20/20 Asher Hummel MD [address] [facility] [place] [address] Physician Hematology/Oncology 06/29/21 Wilfred Martinez, JIGAR.LINUX SUPPORT ENGINEER [address] [facility] [place] [address] Nurse Practitioner Hematology/Oncology 06/29/21 Angle Kamara, RN [address] [facility] [place] [address] Specialty Airway Controller Hematology/Oncology 06/29/21 Cartridge Gauger Relationship Specialty Start Date End Date Flash Pearl MD [address] [place] [address] PCP - General 11/12/00 Sheng Gomez MD [address] [place] [address] Doughnut Icer Machine Cardiology 09/20/20 Asher Hummel MD [address] [facility] [place] [address] Physician Hematology/Oncology 06/29/21 Wilfred Martinez, RADIO MECHANIC.LINUX SUPPORT ENGINEER [address] [facility] [place] [address] Nurse Practitioner Hematology/Oncology 06/29/21 Angle Kamara, MONET [address] [facility] [place] [address] Specialty Airway Controller Hematology/Oncology 06/29/21 Cartridge Gauger Relationship Specialty Start Date End Date Flash Pearl MD [address] [place] [address] PCP - General 11/12/00 Sheng Gomez MD [address] [place] [address] Doughnut Icer Machine Cardiology 09/20/20 Asher Hummel MD [address] [facility] [place] [address] Physician Hematology/Oncology 06/29/21 Wilfred Martinez, RADIO MECHANIC.LINUX SUPPORT ENGINEER [address] [facility] [place] [address] Nurse Practitioner Hematology/Oncology 06/29/21 Angle Kamara, MONET [address] [facility] [place] [address] Specialty Airway Controller Hematology/Oncology 06/29/21 Cartridge Gauger Relationship Specialty Start Date End Date Flash Pearl MD [address] [place] [address] PCP - General 11/12/00 Sheng Gomez MD [address] [place] [address] Doughnut Icer Machine Cardiology 09/20/20 Asher Hummel MD [address] [facility] [place] [address] Physician Hematology/Oncology 06/29/21 Wilfred Martinez, RADIO MECHANIC.LINUX SUPPORT ENGINEER [address] [facility] [place] [address] Nurse Practitioner Hematology/Oncology 06/29/21 Angle Kamara, MONET [address] [facility] [place] [address] Specialty Airway Controller Hematology/Oncology 06/29/21 Cartridge Gauger Relationship Specialty Start Date End Date Flash Pearl MD [address] [place] [address] PCP - General 11/12/00 Sheng Gomez MD [address] [place] [address] Doughnut Icer Machine Cardiology 09/20/20 Asher Hummel MD [address] [facility] [place] [address] Physician Hematology/Oncology 06/29/21 Wilfred Martinez, RADIO MECHANIC.LINUX SUPPORT ENGINEER [address] [facility] [place] [address] Nurse Practitioner Hematology/Oncology 06/29/21 Angle Kamara, RN [address] [facility] [place] [address] Specialty Airway Controller Hematology/Oncology 06/29/21 Cartridge Gauger Relationship Specialty Start Date End Date Flash Pearl MD [address] [place] [address] PCP - General 11/12/00 Sheng Gomez MD [address] [place] [address] Doughnut Icer Machine Cardiology 09/20/20 Asher Hummel MD [address] [facility] [place] [address] Physician Hematology/Oncology 06/29/21 Wilfred Martinez, RADIO MECHANIC.LINUX SUPPORT ENGINEER [address] [facility] [place] [address] Nurse Practitioner Hematology/Oncology 06/29/21 Angle Kamara, MONET [address] [facility] [place] [address] Specialty Airway Controller Hematology/Oncology 06/29/21 Cartridge Gauger Relationship Specialty Start Date End Date Flash Pearl MD [address] [place] [address] PCP - General 11/12/00 Sheng Gomez MD [address] [place] [address] Doughnut Icer Machine Cardiology 09/20/20 Asher Hummel MD [address] [facility] [place] [address] Physician Hematology/Oncology 06/29/21 [place] Martinez, RADIO MECHANIC.LINUX SUPPORT ENGINEER [address] [place] [address] Nurse Practitioner Hematology/Oncology 06/29/21 Angle Kamara, RN [address] [place] [address] Specialty Airway Controller Hematology/Oncology 06/29/21 [facility] Hospice Health And Safety Instructor 11/17/22 Cartridge Gauger Relationship Specialty Start Date End Date Flash Pearl MD [address] [place] [address] PCP - General 11/12/00 Sheng Gomez MD [address] [place] [address] Doughnut Icer Machine Cardiology 09/20/20 Asher Hummel MD [address] [place] [address] Physician Hematology/Oncology 06/29/21 Wilfred Martinez, RADIO MECHANIC.LINUX SUPPORT ENGINEER [address] [place] [address] Nurse Practitioner Hematology/Oncology 06/29/21 Angle Kamara, MONET [address] [place] [address] Specialty Airway Controller Hematology/Oncology 06/29/21 [facility] Hospice Health And Safety Instructor 11/17/22 Cartridge Gauger Relationship Specialty Start Date End Date Flash Pearl MD [address] [place] [address] PCP - General 11/12/00 Sheng Gomez MD [address] [place] [address] Doughnut Icer Machine Cardiology 09/20/20 Asher Hummel MD [address] [place] [address] Physician Hematology/Oncology 06/29/21 Wilfred Martinez, RADIO MECHANIC.LINUX SUPPORT ENGINEER [address] [place] [address] Nurse Practitioner Hematology/Oncology 06/29/21 Angle Kamara, RN [address] [place] [address] Specialty Airway Controller Hematology/Oncology 06/29/21 [facility] Hospice Health And Safety Instructor 11/17/22 Team Status: Active Member Role Status Dates Jacquelin Barton MD Primary Care Provider Active Team Status: Inactive Member Role Status Dates Jacquelin Barton MD Primary Care Provider Active Start: October 17, 2023 End: October 17, 2023 Caryl Marie , JIGAR Emergency Provider Active Start: October 17, 2023 End: October 17, 2023 Cartridge Gauger Relationship Specialty Start Date End Date Flash Pearl MD [address] [place] [address] PCP - General 11/12/00 Sheng Gomez MD [address] [place] [id number] Doughnut Icer Machine Cardiology 09/20/20 Asher Hummel MD [address] [place] [address] [place] [address] Physician Hematology/Oncology 06/29/21 Wilfred Martinez APRN.LINUX SUPPORT ENGINEER [address] [place] [address] [place] [address] Nurse Practitioner Hematology/Oncology 06/29/21 Angle Kamara RN [address] [place] [address] [place] [address] Specialty Airway Controller Hematology/Oncology 06/29/21 [facility] Hospice Health And Safety Instructor 11/17/22 Team Status: Inactive Member Role Status Dates Kit Morris MD Attending Provider Active Star t: November 11, 2023 End: November 11, 2023 Jacquelin Barton MD Primary Care Provider Active Start: November 11, 2023 End: November 11, 2023 Cartridge Gauger Relationship Specialty Start Date End Date Flash Pearl MD [address] [place] [address] PCP - General 11/12/00 Sheng Gomez MD [address] [place] [address] Doughnut Icer Machine Cardiology 09/20/20 Asher Hummel MD [address] [place] [address] [place] [address] Physician Hematology/Oncology 06/29/21 Wilfred Martinez APRN.LINUX SUPPORT ENGINEER [address] [place] [address] [place] [address] Nurse Practitioner Hematology/Oncology 06/29/21 Angle Kamara, MONET [address] [place] [address] [place] [address] Specialty Airway Controller Hematology/Oncology 06/29/21 [facility] Hospice Health And Safety Instructor 11/17/22 Cartridge Gauger Relationship Specialty Start Date End Date Flash Pearl MD [address] [place] [address] PCP - General 11/12/00 Sheng Gomez MD [address] [place] [address] Doughnut Icer Machine Cardiology 09/20/20 Asher Hummel MD [address] [place] [address] Physician Hematology/Oncology 06/29/21 Wilfred Martinez, RADIO MECHANIC.LINUX SUPPORT ENGINEER [address] [facility] [place] [address] Nurse Practitioner Hematology/Oncology 06/29/21 Angle Kamara, RN [address] [place] [address] Specialty Airway Controller Hematology/Oncology 06/29/21 [facility] Hospice Health And Safety Instructor 11/17/22 Cartridge Gauger Relationship Specialty Start Date End Date Flash Pearl MD [address] [place] [address] PCP - General 11/12/00 Sheng Gomez MD [address] [facility] [place] [place] [address] Doughnut Icer Machine Cardiology 09/20/20 Asher Hummel MD [address] [place] [address] Physician Hematology/Oncology 06/29/21 Wilfred Martinez, RADIO MECHANIC.LINUX SUPPORT ENGINEER [address] [place] [address] Nurse Practitioner Hematology/Oncology 06/29/21 Angle Kamara, RN [address] [facility] [place] [address] Specialty Airway Controller Hematology/Oncology 06/29/21 [facility] Hospice Health And Safety Instructor 11/17/22 Team Status: Active Member Role Status Dates Vaishali Machado MD Specialist Active Sheng Gomez MD Doughnut Icer Machine Active JIGAR Mcmahon Primary Care Provider Active Team Status: Inactive Member Role Status Dates Jacquelin Barton MD Primary Care Provider Active Start: January 20, 2024 End: January 20, 2024 JIAGR Mcmhaon Attending Provider Act yoanna Start: January 20, [...] BE BASED ON THE PRIMARY CLINICAL RECORDS. [employer] [facility]. provides no warranty or guarantee of the accuracy or completeness of information in this document.
[2024-02-10] MEDS: ACETAMINOPHEN 325 MG TABLET 650 MG PO (04:19)
[2024-02-10] MEDS: DIPHENHYDRAMINE HCL 50 MG/ML VIAL 25 MG IV (04:20)
[2024-02-10 08:24] LABS: Hemoglobin 7.1 g/dL (14.0-18.0); Mean Corpuscular HGB Conc 33.2 g/dL (29.9-35.2); Mean Corpuscular Hemoglobin 33.5 pg (25.9-34.0); Mean Corpuscular Volume 100.9 fL (80.0-94.0); Mean Platelet Volume 12.7 fL (9.5-13.5); Platelet Count 135 10^3/uL (150-450); Red Blood Count 2.12 10^6/uL (4.70-6.10); Red Cell Distribution Width 21.6 % (11.0-15.0); White Blood Count 15.9 10^3/uL (4.0-11.0)
[2024-02-10 08:31] LABS: Hematocrit 21.4 % (42.0-54.0)
[2024-02-10 08:43] LABS: Alanine Aminotransferase 136 U/L (16-63); Albumin Globulin Ratio 0.4; Albumin Level 1.8 g/dL (3.4-5.0); Alkaline Phosphatase 188 U/L (46-116); Anion Gap 12.1; Aspartate Amino Transferase 137 U/L (15-37); BUN Creatinine Ratio 23.8; Calcium 7.6 mg/dL (8.5-10.1); Carbon Dioxide 27.6 mmol/L (21.0-32.0); Chloride 103 mmol/L (98-107); Estimated GFR (African America 32 (>=60); Estimated GFR (Non-African Ame 26 (>=60); Globulin 4.4 g/dL; Glucose 60 mg/dL (74-106); Magnesium 1.3 mg/dL (1.8-2.4); Potassium 4.7 mmol/L (3.5-5.1); Sodium 138 mmol/L (136-145); Total Protein 6.2 g/dL (6.4-8.2)
--- NOTE | 2024-02-10 08:44 | CM.NOTE ---
Rounds made with Dr. Liu. Repeat labs after 1u PRBCs. Ultrasound to lower extremity pending. No plan for discharge today.
[2024-02-10 08:48] LABS: Lactate/Lactic Acid 1.7 mmol/L (0.4-2.0)
[2024-02-10 08:54] LABS: Lymphocytes Absolute Manual 1.59 10^3/uL (1.20-3.80); Metamyelocytes Absolute Manual 0.31; Monocytes Absolute Manual 0.95 10^3/uL (0.30-0.80); Segmented Neut Absolute Manual 12.87 10^3/uL (1.4-6.5)
[2024-02-10 08:55] LABS: Anisocytosis 2+; Macrocytosis 1+
--- NOTE | 2024-02-10 08:56 | P.HP_ITS ---
HPI H&P: HPI History of Present Illness Chief complaint: RT LEG PAIN Narrative: Patient with a history of myeloid disorder, gets recurrent transfusions, has a week history of right leg pain, erythema and swelling. Worse over the last 2 days. Patient presented to the emergency room and had significant leukocytosis with bandemia and positive lactic acidosis with acute kidney injury and elevated liver function test consistent with severe sepsis secondary to right lower extremity cellulitis. I saw patient up on the medical surgical floor, resting comfortably in bed all the leg hurt anytime he moved it. Ultrasound at that time was pending but has since come back and is negative for DVT. Patient denied any other complaints. Opioid HPI Opioid Management Most Recent Pain and Opioid Data: Last Pain Scale 7 02/10/24 09:37 Last Pain Assessment 02/10/24 09:00 Last MAR Pain Assessment 02/10/24 09:37 Last ORT Total Score 0 02/10/24 04:01 Last ORT Risk Category Low Risk 02/10/24 04:01 [facility] Medical History (Updated 02/10/24 @ 04:55 by Karen Vann MD) Syncopal episodes ?R55 - Syncope and collapse (ICD-10) Serous otitis media ?H65.90 - Unspecified nonsuppurative otitis media, unspecified ear (ICD-10) Chronic respiratory failure with hypoxia ?J96.11 - Chronic respiratory failure with hypoxia (ICD-10) Hearing loss ?H91.90 - Unspecified hearing loss, unspecified ear (ICD-10) Prostate cancer ?C61 - Malignant neoplasm of prostate (ICD-10) Kidney cysts ?N28.1 - Cyst of kidney, acquired (ICD-10) Bone marrow failure ?D61.9 - Aplastic anemia, unspecified (ICD-10) Angina pectoris ?I20.9 - Angina pectoris, unspecified (ICD-10) Pulmonary hypertension ?I27.20 - Pulmonary hypertension, unspecified (ICD-10) PVC (premature ventricular contraction) ?I49.3 - Ventricular premature depolarization (ICD-10) Sleep apnea ?G47.30 - Sleep apnea, unspecified (ICD-10) Colon polyp ?K63.5 - Polyp of colon (ICD-10) Gout ?M10.9 - Gout, unspecified (ICD-10) GERD (gastroesophageal reflux disease) ?K21.9 - Gastro-esophageal reflux disease without esophagitis (ICD-10) Extremity edema ?R60.0 - Localized edema (ICD-10) 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 - Cystic disease of liver (ICD-10) Chronic renal impairment ?N18.9 - Chronic kidney disease, unspecified (ICD-10) Stage III chronic kidney disease ?N18.30 - Chronic kidney disease, stage 3 unspecified (ICD-10) Bradycardia ?R00.1 - Bradycardia, unspecified (ICD-10) Benign prostatic hyperplasia ?N40.0 - Benign prostatic hyperplasia without lower urinary tract symptoms (ICD-10) 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 - Hypertensive chronic kidney disease with stage 1 through stage 4 chronic kidney disease, or unspecified chronic kidney disease (ICD-10) NYHA Class III cardiovascular function Renal insufficiency ?N28.9 - Disorder of kidney and ureter, unspecified (ICD-10) History of blood transfusion ?Z92.89 - Personal history of other medical treatment (ICD-10) MDS (myelodysplastic syndrome) ?D46.9 - Myelodysplastic syndrome, unspecified (ICD-10) Type 2 myocardial infarction ?I21.A1 - Myocardial infarction type 2 (ICD-10) Decompensated heart failure ?I50.9 - Heart failure, unspecified (ICD-10) Pancytopenia ?D61.818 - Other pancytopenia (ICD-10) Tricuspid regurgitation ?I07.1 - Rheumatic tricuspid insufficiency (ICD-10) Mitral valve regurgitation ?I34.0 - Nonrheumatic mitral (valve) insufficiency (ICD-10) GI (gastrointestinal bleed) ?K92.2 - Gastrointestinal hemorrhage, unspecified (ICD-10) Chronic diastolic heart failure ?I50.32 - Chronic diastolic (congestive) heart failure (ICD-10) Atrial fibrillation ?I48.91 - Unspecified atrial fibrillation (ICD-10) CAD (coronary artery disease) ?I25.10 - Atherosclerotic heart disease of [place] coronary artery without angina pectoris (ICD-10) Decreased appetite ?R63.0 - Anorexia (ICD-10) Dyspnea on exertion ?R06.09 - Other forms of dyspnea (ICD-10) On home oxygen therapy ?Z99.81 - Dependence on supplemental oxygen (ICD-10) Hyperkalemia ?E87.5 - Hyperkalemia (ICD-10) Epistaxis ?R04.0 - Epistaxis (ICD-10) CHF (congestive heart failure) ?I50.9 - Heart failure, unspecified (ICD-10) Myelodysplastic disease ?C94.6 - Myelodysplastic disease, not elsewhere classified (ICD-10) Anemia ?D64.9 - Anemia, unspecified (ICD-10) Hyperlipemia ?E78.5 - Hyperlipidemia, unspecified (ICD-10) Diabetes ?E11.9 - Type 2 diabetes mellitus without complications (ICD-10) Transfusion of blood during current hospitalisation Hypertension ?I10 - Essential (primary) hypertension (ICD-10) 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, valve unspecified (ICD-10) Anemia ?D64.9 - Anemia, unspecified (ICD-10) Surgical History (Updated 10/20/23 @ 14:09 by Kiah Lind NP) History of esophagogastroduodenoscopy (EGD) ?Z98.890 - Other specified postprocedural states (ICD-10) History of colonoscopy ?Z98.890 - Other specified postprocedural states (ICD-10) History of cardiac catheterization ?Z98.890 - Other specified postprocedural states (ICD-10) H/O right heart catheterization ?Z98.890 - Other specified postprocedural states (ICD-10) History of nasal cauterization ?Z98.890 - Other specified postprocedural states (ICD-10) S/P arterial stent ?Z95.9 - Presence of cardiac and vascular implant and graft, unspecified (ICD-10) History of heart artery stent ?Z95.5 - Presence of coronary angioplasty implant and graft (ICD-10) Family History Father Family history of stroke Mother Family history of stroke Family history of hypertension Family history of CHF (congestive heart failure) Brother Family history of diabetes mellitus Sister Family history of cancer Social History (Updated 10/21/23 @ 07:07 by Anna Uribe) Within the past year, how often did you have a drink containing alcohol: never Score interpretation: A score less than 4 is consistent with normal alcohol consumption. 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 level of school completed/degree received: high school graduate Are you now , , , , never or living with a partner: In a typical week, how many times do you talk on the telephone with family, friends, or neighbors: 3 or more times per week How often do you get together with friends or relatives: 3 or more times per week How often do you attend christian or baptism services: 1-3 times per year Little interest or pleasure in doing things: not at all Feeling down, depressed, or hopeless: not at all Feel stressed/tense/nervous/anxious/difficulty sleeping: not at all Life stressors: unknown source of stress Do you think of yourself as: straight/heterosexual Gender Identity: male Meds Home Medications and Allergies Home Medications ?Medication ?Instructions ?Recorded ?Confirmed ?Type aspirin 81 mg tablet,delayed 81 mg PO QPM 02/03/23 02/10/24 History release dapagliflozin propanediol 10 mg 10 mg PO DAILY 02/03/23 02/10/24 History tablet (Farxiga) omeprazole 40 mg capsule,delayed 40 mg PO DAILY 02/03/23 02/10/24 History release terazosin 5 mg capsule 5 mg PO QPM 02/03/23 02/10/24 History atorvastatin 20 mg tablet 20 mg PO QDAY 04/23/23 02/10/24 History blood sugar diagnostic (OneTouch 04/23/23 12/31/23 History Ultra Test strips) cholecalciferol (vitamin D3) 25 25 mcg PO DAILY 07/09/23 02/10/24 History mcg (1,000 unit) tablet (Vitamin D3) cyclobenzaprine 5 mg tablet 5 mg PO BID PRN muscle spasm 07/09/23 02/10/24 History glipizide 5 mg tablet, extended 5 mg PO QPM 07/09/23 02/10/24 History release 24 hr (Glucotrol XL) metoprolol succinate 25 mg 12.5 mg PO DAILY 07/09/23 02/10/24 History tablet,extended release 24 hr (Toprol XL) febuxostat 40 mg tablet 40 mg PO DAILY 30 days #30 tabs 07/10/23 02/10/24 Rx lisinopril 2.5 mg tablet 2.5 mg PO DAILY 30 days #30 tabs 07/10/23 02/10/24 Rx famotidine 20 mg tablet (Pepcid) 20 mg PO BID #10 tabs 12/31/23 02/10/24 Rx bumetanide 1 mg tablet 2 mg PO QAM 02/10/24 02/10/24 History metolazone 2.5 mg tablet 2.5 mg PO .once weekly 02/10/24 02/10/24 History spironolactone 25 mg tablet 25 mg PO .once daily 02/10/24 02/10/24 History triamcinolone acetonide 0.1 % 1 applic topical BID 02/10/24 02/10/24 History topical cream Allergies Allergy/AdvReac Type Severity Reaction Status Date / Time bee venom protein (honey bee) Allergy Severe Hives Verified 02/10/24 00:16 carvedilol Allergy Hives Verified 02/10/24 00:16 Exam Constitutional Vital Signs, click to edit/add: Last Vital Signs Temp 98.5 F 02/10/24 06:05 Pulse 79 02/10/24 08:00 Resp 20 02/10/24 06:05 BP 90/54 02/10/24 06:05 Pulse Ox 96 02/10/24 06:05 O2 Del Method Nasal Cannula 02/10/24 06:05 O2 Flow Rate 3 02/10/24 06:05 Documenting provider has reviewed patient's vital signs: yes Common normals: no apparent distress Chest Common normals: inspection of chest normal Respiratory Common normals: normal respiratory effort and no retractions Cardio Common normals: regular rate and regular rhythm GI Common normals: Normal to inspection, nondistended, normoactive bowel sounds pre sent, soft to palpation and no hepatosplenomegaly Extremity Common normals: abnormal to inspection (Right lower extremity with rubor, calor, dolor, edema) Results Labs Labs: Short CBC 02/10/24 02/10/24 02/10/24 Range/Units 00:43 02:23 08:14 WBC 11.8 H 17.2 H 15.9 H (4.0-11.0) 10^3/uL Hgb 11.6 L 6.3 L* D 7.1 L (14.0-18.0) g/dL Hct 36.4 L 20.1 L* 21.4 L* (42.0-54.0) % Plt Count 128 L 144 L 135 L (150-450) 10^3/uL BMP 07/16/24 07/16/24 00:43 08:14 Sodium 135 L 138 Potassium 4.6 4.7 Chloride 98 103 Carbon Dioxide 26.7 27.6 BUN 61.0 H 57.0 H Creatinine 2.80 H 2.39 H Glucose 94 60 L Calcium 8.4 L 7.6 L Liver Function 02/10/24 02/10/24 Range/Units 00:43 08:14 Total Bilirubin 0.7 1.0 (0.2-1.0) mg/dL AST 89 H 137 H (15-37) U/L ALT 101 H 136 H (16-63) U/L Alkaline Phosphatase 198 H 188 H (46-116) U/L Albumin 2.2 L 1.8 L (3.4-5.0) g/dL Assessment and Plan Assessment and Plan (1) Chronic renal disease: (2) Anemia: (3) Cellulitis of leg, right: (4) MDS (myelodysplastic syndrome): Plan Admission findings: Hypotension, acute hypoxia, leukocytosis with bandemia, positive lactate, elevated liver function test, acute renal failure, elevated CRP P secondary to right lower extremity cellulitis resulting in severe sepsis. IV antibiotics. With acute renal failure will change patient from vancomycin to clindamycin. With high likelihood of Pseudomonas will change patient to Zosyn. Gentle hydration secondary to a history of congestive heart failure Myelodysplastic disorder with cytopenia and anemia, given 1 unit and hemoglobin came up to 7, this is probably where he lives to hold off on any further transfusions. Acute renal failure-baseline creatinine of 1.52, creatinine admission 2.80, this is 184.2% above baseline. NIDDM-insulin sliding scale and home medications, hold off on glipizide since were not sure while he is going to be eating, hold off on Farxiga secondary to renal failure Hypertension by history-low on admission, watch closely hold blood pressure medications GERD-Home medications Admission status: Patient with severe sepsis as outlined above, medically necessary treatment will span 2 midnights. Inpatient status.
--- NOTE | 2024-02-10 08:56 | XR_ITS ---
The [address] [address] Patient Name: SANDIP BROUSSARD MRN: [id number] date: 1940 Sex: M Assigned Patient Location: [place] Current Patient Location: [place] Accession/Order Number: [id number] Exam Date: 02/10/2024 11:30 Report Date: 02/10/2024 11:55 At the request of: MACIEJ PEREZ Procedure: XR chest 2V EXAMINATION: XR chest 2V HISTORY: hypoxia COMPARISON: 09/09/2023 TECHNIQUE: PA and lateral FINDINGS: LUNGS: No significant pulmonary parenchymal abnormalities. VASCULATURE: No increased pulmonary vasculature. PLEURA: No pneumothorax. Small bilateral pleural effusions blunting the lateral posterior costophrenic angles CARDIAC: Moderate stable cardiomegaly MEDIASTINUM: No visible mass or adenopathy. Aortic atherosclerosis BONES: No fracture or visible bone lesion. OTHER: Negative. XR/XR chest 2V IMPRESSION: Small bilateral pleural effusions Electronically authenticated by: JOSIE MIRAMONTES Date: 02/10/2024 11:55
[2024-02-10] MEDS: LEVOFLOXACIN IN DEXTROSE 5 % 750 MG/150 ML IV.SOLN 100 MG IV (09:37)
[2024-02-10] MEDS: ACETAMINOPHEN 500 MG TABLET 1000 MG PO ×2 (09:37→15:33)
[2024-02-10] MEDS: OMEPRAZOLE 40 MG CAPSULE.DR PO (09:37)
[2024-02-10] MEDS: METOPROLOL SUCCINATE 25 MG TAB.ER.24H 12.5 MG PO (09:37)
[2024-02-10] MEDS: ATORVASTATIN CALCIUM 20 MG TABLET PO (09:37)
[2024-02-10] MEDS: FAMOTIDINE 20 MG TABLET PO ×2 (09:37→21:36)
[2024-02-10] MEDS: 0.9 % SODIUM CHLORIDE 250 ML 10 ML IV (09:37)
[2024-02-10 09:43] LABS: Glucometer 71 mg/dL (74-106)
[2024-02-10 11:04] LABS: Glucometer 122 mg/dL (74-106)
[2024-02-10] MEDS: PIPERACILLIN SODIUM/TAZOBACTAM 3.375 GM in 0.9 % SODIUM CHLORIDE 50 ML IV ×2 (11:45→23:01)
--- NOTE | 2024-02-10 11:46 | SWNOTE1 ---
SW met with pt to discuss dc needs. Pt's sister was in room during assessment. Pt lives at home with his . Pt uses a walker at home to get around. He does wear home oxygen at 3 liters. SW asked if he has any services coming in to the home such as HH or Hospice. He voiced he does not. He stated they are a waste of time and money. He voiced they billed his insurance $1,400 for a nurse just to come take vitals. At this time pt does not want any services. SW asked if SW can talk to his as well. They voiced she will be here later today. SW to check back in. Pt voiced she keeps track of everything. SW did let pt know that it was recommended that pt at least returns home with HH for safety. SW to check back with pt when is here. SW to also review Important Message from Medicare form with pt once is here as well. Pt is hard of hearing, he does not have his hearing aides here.
[2024-02-10 13:15] LABS: Bilirubin Urine NEGATIVE (NEGATIVE); Blood Urine NEGATIVE (NEGATIVE); Clarity Urine CLEAR (CLEAR); Color Urine YELLOW (YELLOW); Glucose Urine UA 100 mg/dL (NEGATIVE); Ketones Urine NEGATIVE (NEGATIVE); Leukocyte Esterase Urine NEGATIVE (NEGATIVE); Nitrite Urine NEGATIVE (NEGATIVE); Protein Urine NEGATIVE (NEG/TRACE); Specific Gravity Urine <=1.005 (1.005-1.025)
[2024-02-10 13:30] LABS: Bacteria Urine MODERATE #/HPF (NONE SEEN); Cast Seen? SEEN #/LPF (NONE SEEN); Crystals Seen? None Seen #/HPF (None Seen); Hyaline Casts Urine RARE; Mucus Urine TRACE (NONE SEEN); RBC Urine 0-2 #/HPF (0-2); Squamous Epithelial Cell Urine FEW #/LPF (NONE/RARE)
--- NOTE | 2024-02-10 14:14 | SWNOTE1 ---
SW stopped back in, but pt's was not in room and pt was sleeping. SW advised pt's sister that SW will be back tomorrow and sister will notify pt's .
[2024-02-10 16:26] LABS: Glucometer 82 mg/dL (74-106)
[2024-02-10 20:26] LABS: Glucometer 103 mg/dL (74-106)
[2024-02-10 21:03] LABS: Anion Gap 11.8; BUN Creatinine Ratio 22.6; Calcium 7.7 mg/dL (8.5-10.1); Carbon Dioxide 27.1 mmol/L (21.0-32.0); Chloride 103 mmol/L (98-107); Estimated GFR (African America 32 (>=60); Estimated GFR (Non-African Ame 26 (>=60); Glucose 77 mg/dL (74-106); Magnesium 1.3 mg/dL (1.8-2.4); Potassium 4.9 mmol/L (3.5-5.1); Sodium 137 mmol/L (136-145)
[2024-02-10] MEDS: ASPIRIN 81 MG TABLET.DR PO (21:36)
[2024-02-10] MEDS: MAGNESIUM SULFATE IN WATER 4 GM/100 ML PIGGYBACK IV (23:09)
[2024-02-11] VITALS (20 sets, daily range): BP systolic 94–108; BP diastolic 51–66; PULSE 61–103; TEMP 36.5–36.8; O2SAT 91–98
[2024-02-11 05:38] LABS: Basophils Percent Auto 0.2 % (0.2-2.0); Eosinophils Percent Auto 0.1 % (0.9-7.0); Hemoglobin 7.1 g/dL (14.0-18.0); Immature Granulocytes Abs Auto 1.43 10^3/uL (0.00-0.03); Immature Granulocytes Pct Auto 12.1 % (0.0-0.5); Lymphocytes Absolute Auto 0.7 10^3/uL (1.2-3.8); Lymphocytes Percent Auto 5.9 % (20.5-60.0); Mean Corpuscular HGB Conc 32.4 g/dL (29.9-35.2); Mean Corpuscular Hemoglobin 33.2 pg (25.9-34.0); Mean Corpuscular Volume 102.3 fL (80.0-94.0); Mean Platelet Volume 13.4 fL (9.5-13.5); Monocytes Absolute Auto 1.7 10^3/uL (0.3-0.8); Monocytes Percent Auto 13.9 % (1.7-12.0); Neutrophils Percent Auto 67.8 % (43.0-75.0); Platelet Count 148 10^3/uL (150-450); Red Blood Count 2.14 10^6/uL (4.70-6.10); Red Cell Distribution Width 21.9 % (11.0-15.0); White Blood Count 11.8 10^3/uL (4.0-11.0)
[2024-02-11 05:49] LABS: Hematocrit 21.9 % (42.0-54.0)
[2024-02-11 05:59] LABS: Magnesium 2.6 mg/dL (1.8-2.4)
[2024-02-11 06:02] LABS: Alanine Aminotransferase 131 U/L (16-63); Albumin Globulin Ratio 0.4; Albumin Level 1.9 g/dL (3.4-5.0); Alkaline Phosphatase 190 U/L (46-116); Anion Gap 11.3; Aspartate Amino Transferase 81 U/L (15-37); BUN Creatinine Ratio 22.4; Bilirubin Total 0.9 mg/dL (0.2-1.0); C Reactive Protein 17.38 mg/dL (<=0.50); Calcium 8.3 mg/dL (8.5-10.1); Carbon Dioxide 27.6 mmol/L (21.0-32.0); Chloride 102 mmol/L (98-107); Estimated GFR (African America 34 (>=60); Estimated GFR (Non-African Ame 28 (>=60); Globulin 4.6 g/dL; Glucose 101 mg/dL (74-106); Potassium 4.9 mmol/L (3.5-5.1); Sodium 136 mmol/L (136-145); Total Protein 6.5 g/dL (6.4-8.2)
[2024-02-11] MEDS: ATORVASTATIN CALCIUM 20 MG TABLET PO (08:25)
[2024-02-11] MEDS: OMEPRAZOLE 40 MG CAPSULE.DR PO (08:25)
[2024-02-11] MEDS: PROSTAT 15 GM PROTEIN/100 CAL 30 ML LIQUID PACKET PO ×2 (08:25→20:39)
[2024-02-11] MEDS: ENSURE HP 237 ML LIQUID PO ×2 (08:25→20:39)
[2024-02-11] MEDS: FAMOTIDINE 20 MG TABLET PO ×2 (08:25→20:39)
--- NOTE | 2024-02-11 08:41 | CM.NOTE ---
Rounds made with Dr. Liu. Mr. Dykes asking for Tylenol for pain. Echo to be ordered. No discharge today.
--- NOTE | 2024-02-11 09:06 | P.PN_ITS ---
Progress Note: Subjective Subjective Interval history: Patient states right leg still painful, and some pressure. May be slightly improved from previous day but not significantly per patient Exam Constitutional Vital Signs, click to edit/add: Last Vital Signs Temp 98 F 02/11/24 07:33 Pulse 82 02/11/24 08:09 Resp 16 02/11/24 08:00 BP 97/59 02/11/24 07:33 Pulse Ox 91 L 02/11/24 07:33 O2 Del Method Nasal Cannula 02/11/24 07:33 O2 Flow Rate 2 02/11/24 07:33 Documenting provider has reviewed patient's vital signs: yes Common normals: no apparent distress Chest Common normals: inspection of chest normal Respiratory Common normals: normal respiratory effort (No rales) and no retractions Cardio Common normals: regular rate and regular rhythm GI Common normals: Normal to inspection, nondistended, normoactive bowel sounds present, soft to palpation and no hepatosplenomegaly Extremity Common normals: abnormal to inspection (Right lower extremity with rubor, calor, dolor, edema-slightly improved) Progress Note: Objective Labs Labs: Short CBC 02/11/24 Range/Units 05:21 WBC 11.8 H (4.0-11.0) 10^3/uL Hgb 7.1 L (14.0-18.0) g/dL Hct 21.9 L* (42.0-54.0) % Plt Count 148 L (150-450) 10^3/uL BMP 02/10/24 02/11/24 20:35 05:21 Sodium 137 136 Potassium 4.9 4.9 Chloride 103 102 Carbon Dioxide 27.1 27.6 BUN 53.0 H 50.0 H Creatinine 2.35 H 2.23 H Glucose 77 101 Calcium 7.7 L 8.3 L Liver Function 02/11/24 Range/Units 05:21 Total Bilirubin 0.9 (0.2-1.0) mg/dL AST 81 H (15-37) U/L ALT 131 H (16-63) U/L Alkaline Phosphatase 190 H (46-116) U/L Albumin 1.9 L (3.4-5.0) g/dL Urine 02/10/24 Range/Units 13:00 Urine Color Yellow (YELLOW) Urine Clarity Clear (CLEAR) Urine pH 6.0 (5.0-9.0) Ur Specific [place] <=1.005 A (1.005-1.025) Urine Protein Negative (NEG/TRACE) mg/dL Urine Glucose (UA) 100 A (NEGATIVE) mg/dL Progress Note: A&P Assessment and Plan (1) Chronic renal disease: (2) Anemia: (3) Cellulitis of leg, right: (4) MDS (myelodysplastic syndrome): Plan Admission findings: Hypotension, acute hypoxia, leukocytosis with bandemia, positive lactate, elevated liver function test, acute renal failure, elevated CRP P secondary to right lower extremity cellulitis resulting in severe sepsis. Continue with IV antibiotics, blood cultures are still pending, slight improvement per patient. He is to maintain IV antibiotics. Myelodysplastic disorder with cytopenia and anemia, given 1 unit and hemoglobin came up to 7, stable at 7 today Acute renal failure-baseline creatinine of 1.52, creatinine admission 2.80,- slightly improved today. NIDDM-insulin sliding scale and home medications, hold off on glipizide since were not sure while he is going to be eating, hold off on Farxiga secondary to renal failure Hypertension by history-low on admission, watch closely hold blood pressure medications GERD-Home medications Elevated BNP-consider checking echocardiogram, not significantly changed from previous day, he has swelling in his right lower extremity but not his left, lung exam fairly clear, not consistent with heart failure, more likely related to his acute renal failure as outlined above Abnormal urinalysis-antibiotics as outlined above for the cellulitis, urine culture pending Severe protein calorie malnutrition-diet management Admission status: Patient with severe sepsis as outlined above, medically necessary treatment will span 2 midnights. Inpatient status at least 2 more days. ?
--- NOTE | 2024-02-11 09:54 | REH.PTDLY ---
Physical Therapy Daily Note PT Daily Note/Assess Start: 02/11/24 09:46 Freq: Status: Active Protocol: Document 02/11/24 09:46 PACHECO (Rec: 02/11/24 09:54 [id number] Physical Therapy Daily Note/Assessment Time In 08:53 Time Out 09:12 Subjective Pt in bathroom upon arrival. Took over care once pt is finished. Pt reports R leg is still painful of 6/10, however pt is putting weight thru leg with gait today. Therapeutic Exercise Minutes (minutes) 5 Therapeutic Exercise Units 0 Therapeutic Exercise Treatment instructed in B LE seated exs including AP, LAQ, marching, and hip abd slides 10x ea for improved strength and mobility . Pt does not have as large of ROM with R leg compared to L leg Therapeutic Activity Minutes (minutes) 10 Therapeutic Activity Units 1 Therapeutic Activity Comments Pt slow to ambulate with RW to chair 20 feet from restroom, becoming fatigued. Pt usually wear 2L of O2, but this was taken off when he went into restroom he reports. Cues when pt sits in chair for safety. Once O2 applied pt feels better. R LE still painful especially when touched pt reports. Total Therapy Minutes 15 Total Physical Therapy Units 1 Daily Note Summary Improved gait today as pt is able to actually ambulate short distance opposed to yesterday where pain was too high during therapy. Continue to work on gait and exs for improved strength and balance.
[2024-02-11] MEDS: ACETAMINOPHEN 500 MG TABLET 1000 MG PO (09:55)
--- NOTE | 2024-02-11 10:16 | SWNOTE1 ---
SW did check physical therapy notes and pt did do better today, but still leg pain. SW stopped back in to speak with pt and possibly . Pt's is not here yet. SW did ask pt how he was feeling. He stated lousy, still leg pain. He did voice he did better with therapy. SW again spoke to him about Home Health, he voiced he does not want that. SW also mentioned going to nursing facility for reahab, and he stated that is not happening. He stated if he can not walk, then he will think about it. SW to stop back in later today and speak with pt and , or call if she is not in. Important Message from Medicare reviewed and discussed with patient. Pt. verbalized understanding and signed the form. Original given to patient and copy placed in patient?s chart.
[2024-02-11 11:16] LABS: Glucometer 225 mg/dL (74-106)
--- NOTE | 2024-02-11 12:13 | SWNOTE1 ---
FLOYD stopped in and spoke with pt's . Pt's voiced he is doing well at home. They have not had any services coming in at this time. She has [facility]'s number on her fridge for when he is ready for hospice, but not at this time. He does come in weekly to get blood at the infusion center and does follow with Dr. Machado. She voiced she is the home care companion at home. SW did express that HH is recommended and possibly SNF. FLOYD advised her that pt is refusing both. SW let her know that pt adamantly refuses going to SNF. Pt's is open to HH and does feel he will do better at home versus going to SNF and she will care for him at home as well. SW did let her know he did better with physical therapy today. Pt's stated he did have HH in past, but could not remember who it was. They do live in [place], SW offered [facility] out of [place]. Pt's is agreeable and she will talk to patient. FLOYD sent referral to [facility]. Referral included face sheet, PT/OT notes, and physician notes. Pt's did have concerns about the blood count being wrong in the ED. She stated she spoke with the head of the ED yesterday and has not had a follow up about this. FLOYD to reach out to Haydee Albarran. Pt's also asking to see if pt will get more blood today, SW to ask nursing. Nursing is going to speak with .
--- NOTE | 2024-02-11 13:34 | SWNOTE1 ---
SW received phone call from [facility] and they are able to accept and have had them in past. SW to keep [facility] updated on discharge.
[2024-02-11 16:07] LABS: Glucometer 191 mg/dL (74-106)
[2024-02-11] MEDS: INSULIN ASPART 300 UNIT/3 ML PEN SUBQ (16:19)
[2024-02-11] MEDS: PIPERACILLIN SODIUM/TAZOBACTAM 3.375 GM in 0.9 % SODIUM CHLORIDE 50 ML IV (18:36)
[2024-02-11] MEDS: 0.9 % SODIUM CHLORIDE 250 ML 10 ML IV (18:37)
[2024-02-11] MEDS: ASPIRIN 81 MG TABLET.DR PO (20:39)
[2024-02-11 20:45] LABS: Glucometer 138 mg/dL (74-106)
[2024-02-12] VITALS (25 sets, daily range): BP systolic 88–125; BP diastolic 44–88; PULSE 72–93; TEMP 36.3–36.9; O2SAT 90–98
[2024-02-12] MEDS: ACETAMINOPHEN 500 MG TABLET 1000 MG PO ×2 (00:19→09:15)
[2024-02-12] MEDS: PIPERACILLIN SODIUM/TAZOBACTAM 3.375 GM in 0.9 % SODIUM CHLORIDE 50 ML IV ×2 (05:14→17:36)
[2024-02-12 05:49] LABS: Mean Corpuscular Hemoglobin 32.5 pg (25.9-34.0); Mean Platelet Volume 13.3 fL (9.5-13.5); Platelet Count 154 10^3/uL (150-450); Red Cell Distribution Width 22.5 % (11.0-15.0); White Blood Count 10.8 10^3/uL (4.0-11.0)
[2024-02-12 06:10] LABS: Hemoglobin 6.5 g/dL (14.0-18.0)
[2024-02-12 06:29] LABS: Alanine Aminotransferase 112 U/L (16-63); Albumin Globulin Ratio 0.4; Albumin Level 1.8 g/dL (3.4-5.0); Alkaline Phosphatase 195 U/L (46-116); Anion Gap 13.4; Aspartate Amino Transferase 59 U/L (15-37); Bilirubin Total 0.9 mg/dL (0.2-1.0); C Reactive Protein 15.83 mg/dL (<=0.50); Calcium 8.1 mg/dL (8.5-10.1); Carbon Dioxide 26.4 mmol/L (21.0-32.0); Chloride 102 mmol/L (98-107); Estimated GFR (African America 34 (>=60); Estimated GFR (Non-African Ame 28 (>=60); Globulin 4.5 g/dL; Glucose 135 mg/dL (74-106); Potassium 4.8 mmol/L (3.5-5.1); Sodium 137 mmol/L (136-145); Total Protein 6.3 g/dL (6.4-8.2)
[2024-02-12 06:38] LABS: Band Neutrophils Absolute 1.7 10^3/uL (0.0-0.3); Lymphocytes Absolute Manual 1.18 10^3/uL (1.20-3.80); Metamyelocytes Absolute Manual 0.32; Monocytes Absolute Manual 1.51 10^3/uL (0.30-0.80); Segmented Neut Absolute Manual 5.94 10^3/uL (1.4-6.5)
[2024-02-12] MEDS: FAMOTIDINE 20 MG TABLET PO ×2 (09:15→20:05)
[2024-02-12] MEDS: DIPHENHYDRAMINE HCL 25 MG CAPSULE PO (09:15)
[2024-02-12] MEDS: ATORVASTATIN CALCIUM 20 MG TABLET PO (09:15)
[2024-02-12] MEDS: 0.9 % SODIUM CHLORIDE 250 ML 10 ML IV (09:15)
[2024-02-12] MEDS: OMEPRAZOLE 40 MG CAPSULE.DR PO (09:15)
[2024-02-12] MEDS: PROSTAT 15 GM PROTEIN/100 CAL 30 ML LIQUID PACKET PO ×2 (09:15→20:05)
[2024-02-12] MEDS: ENSURE HP 237 ML LIQUID PO ×2 (09:15→20:05)
[2024-02-12] MEDS: LEVOFLOXACIN IN DEXTROSE 5 % 500 MG/100 ML PIGGYBACK 100 MG IV (09:19)
[2024-02-12] MEDS: BUMETANIDE 1 MG/4 ML VIAL 2 MG IVP (09:19)
--- NOTE | 2024-02-12 09:55 | P.PN_ITS ---
Progress Note: Subjective Subjective Interval history: Patient states leg is still hurting, difficulty ambulating secondary to the pain, will see how physical therapy goes today Exam Constitutional Vital Signs, click to edit/add: Last Vital Signs Temp 97.7 F 02/12/24 09:25 Pulse 77 02/12/24 09:53 Resp 18 02/12/24 09:25 BP 98/58 02/12/24 09:25 Pulse Ox 95 02/12/24 09:25 O2 Del Method Nasal Cannula 02/12/24 09:25 O2 Flow Rate 2 02/12/24 09:25 Documenting provider has reviewed patient's vital signs: yes Common normals: no apparent distress Chest Common normals: inspection of chest normal Respiratory Common normals: normal respiratory effort (No rales) and no retractions Cardio Common normals: regular rate and regular rhythm GI Common normals: Normal to inspection, nondistended, normoactive bowel sounds present, soft to palpation and no hepatosplenomegaly Extremity Common normals: abnormal to inspection (Right lower extremity with rubor, calor, dolor, edema-again improved) Progress Note: Objective Labs Labs: Short CBC 02/12/24 Range/Units 05:24 WBC 10.8 (4.0-11.0) 10^3/uL Hgb 6.5 L* (14.0-18.0) g/dL Hct 21.0 L* (42.0-54.0) % Plt Count 154 (150-450) 10^3/uL BMP 02/12/24 05:24 Sodium 137 Potassium 4.8 Chloride 102 Carbon Dioxide 26.4 BUN 56.0 H Creatinine 2.24 H Glucose 135 H Calcium 8.1 L Liver Function 02/12/24 Range/Units 05:24 Total Bilirubin 0.9 (0.2-1.0) mg/dL AST 59 H (15-37) U/L ALT 112 H (16-63) U/L Alkaline Phosphatase 195 H (46-116) U/L Albumin 1.8 L (3.4-5.0) g/dL Progress Note: A&P Assessment and Plan (1) Chronic renal disease: (2) Anemia: (3) Cellulitis of leg, right: (4) MDS (myelodysplastic syndrome): Plan Admission findings: Hypotension, acute hypoxia, leukocytosis with bandemia, positive lactate, elevated liver function test, acute renal failure, elevated CRP P secondary to right lower extremity cellulitis resulting in severe sepsis. Continue with IV antibiotics, blood cultures are still pending, slight improvement per patient. Leg continues to look better, he does still have bandemia today, still with significant pain. With overall improvement in the bandemia and the erythema, will maintain current antibiotics Myelodysplastic disorder with cytopenia and anemia,-hemoglobin down today, 6.5, will give 1 unit of PRBCs Acute renal failure-baseline creatinine of 1.52, creatinine admission 2.80,- stable in the last 2 days NIDDM-insulin sliding scale and home medications, hold off on glipizide since were not sure while he is going to be eating,-stable Hypertension by history-low on admission, watch closely hold blood pressure medications GERD-Home medications Elevated BNP-elevated again today, will restart his home medications tomorrow, will give 1 dose of IV Bumex today to try to catch up from previous day and the blood transfusion Abnormal urinalysis-antibiotics as outlined above for the cellulitis, urine culture pending-should have results later today Severe protein calorie malnutrition-diet management Admission status: Patient with severe sepsis as outlined above, medically necessary treatment will span 2 midnights. Inpatient status at least 1 more days. ? ?
--- NOTE | 2024-02-12 10:03 | REH.PTDLY ---
Physical Therapy Daily Note PT Daily Note/Assess Start: 02/11/24 09:46 Freq: Status: Active Protocol: Document 02/12/24 09:35 PACHECO (Rec: 02/12/24 09:59 [facility] [id number]) Visit Not Completed Visit Not Completed Due to: Pt refusing Other Reason Visit Not Completed Pt reports he just got up and went to bathroom and pain is his leg was horrible. 'Barely made it' per the pt. Declines therapy today. Physical Therapy Daily Note/Assessment Time In 09:32 Time Out 09:33
--- NOTE | 2024-02-12 10:05 | CM.NOTE ---
07:[address] Liu discussed lab results and need for 1 unit of PRBCs. Adalid verbalized understanding. Adalid states still painful to leg and trouble walking. Dr Liu discussed the possible need for rehab. Plan is to see how Adalid does with PT today and get their recommendation. No plan for discharge today.
[2024-02-12 11:22] LABS: Glucometer 272 mg/dL (74-106)
--- NOTE | 2024-02-12 11:28 | REH.PTDLY ---
Physical Therapy Daily Note PT Daily Note/Assess Start: 02/11/24 09:46 Freq: Status: Active Protocol: Document 02/12/24 10:30 PACHECO (Rec: 02/12/24 11:28 PACHECO [id number]) Visit Not Completed Visit Not Completed Due to: Pt refusing Other Reason Visit Not Completed Spoke with social media coordinator and she reports Dr. Liu told pt he needed to participate and move around today so he can go home vs. rehab. Went back in and spoke with pt educating on benefits of therapy and pt continues to decline to get out of bed. States 'It's not that I don't want to, it's that I cannot do it due to the pain. When I get up the pain is terrible and I have to drag my R leg to get to the bathroom. I just cannot do it. ' Respiratory therpaist Shilpa came into the room during conversation and also tried to persuade pt to participate from a respiratory standpoint, but pt continues to decline physical therapy today. Physical Therapy Daily Note/Assessment Time In 10:30 Time Out 10:35
--- NOTE | 2024-02-12 12:09 | SWNOTE1 ---
Pt refused to work with PT and OT today. SW went to speak with pt, but he is sleeping at this time. SW to try again later today.
--- NOTE | 2024-02-12 13:15 | SWNOTE1 ---
SW stopped in to speak with pt. Pt's in room as well. SW advised pt's that pt did not work with therapy today, they attempted 3x but he was in too much pain to do anything. Pt's will re-enforce to pt that he has to at least try to work with therapy so he can go home with home health.
[2024-02-12 16:14] LABS: Glucometer 243 mg/dL (74-106)
[2024-02-12] MEDS: INSULIN ASPART 300 UNIT/3 ML PEN SUBQ (17:38)
[2024-02-12] MEDS: ASPIRIN 81 MG TABLET.DR PO (20:05)
[2024-02-12 20:53] LABS: Glucometer 185 mg/dL (74-106)
[2024-02-13] VITALS (15 sets, daily range): BP systolic 97–138; BP diastolic 42–80; PULSE 73–90; TEMP 36.4–37; O2SAT 93–99
[2024-02-13 00:53] LABS: Hematocrit 26.1 % (42.0-54.0); Hemoglobin 8.2 g/dL (14.0-18.0)
[2024-02-13] MEDS: ACETAMINOPHEN 500 MG TABLET 1000 MG PO ×2 (00:54→11:39)
[2024-02-13] MEDS: PIPERACILLIN SODIUM/TAZOBACTAM 3.375 GM in 0.9 % SODIUM CHLORIDE 50 ML IV (05:12)
[2024-02-13 05:48] LABS: Hemoglobin 7.1 g/dL (14.0-18.0); Mean Platelet Volume 13.1 fL (9.5-13.5); Platelet Count 158 10^3/uL (150-450); Red Blood Count 2.22 10^6/uL (4.70-6.10); Red Cell Distribution Width 24.7 % (11.0-15.0); White Blood Count 11.2 10^3/uL (4.0-11.0)
[2024-02-13 06:12] LABS: Alanine Aminotransferase 122 U/L (16-63); Albumin Globulin Ratio 0.4; Albumin Level 1.8 g/dL (3.4-5.0); Alkaline Phosphatase 221 U/L (46-116); Anion Gap 12.3; Aspartate Amino Transferase 61 U/L (15-37); BUN Creatinine Ratio 25.9; Bilirubin Total 0.9 mg/dL (0.2-1.0); C Reactive Protein 13.36 mg/dL (<=0.50); Calcium 8.4 mg/dL (8.5-10.1); Carbon Dioxide 25.6 mmol/L (21.0-32.0); Chloride 102 mmol/L (98-107); Estimated GFR (African America 33 (>=60); Estimated GFR (Non-African Ame 27 (>=60); Globulin 4.6 g/dL; Glucose 182 mg/dL (74-106); Potassium 4.9 mmol/L (3.5-5.1); Sodium 135 mmol/L (136-145); Total Protein 6.4 g/dL (6.4-8.2)
[2024-02-13 06:27] LABS: Hematocrit 22.2 % (42.0-54.0)
[2024-02-13 06:28] LABS: Anisocytosis 1+; Band Neutrophils Absolute 1.1 10^3/uL (0.0-0.3); Eosinophils Absolute Manual 0.11 10^3/uL (0.00-0.70); Lymphocytes Absolute Manual 2.35 10^3/uL (1.20-3.80); Macrocytosis 1+; Monocytes Absolute Manual 0.67 10^3/uL (0.30-0.80); Segmented Neut Absolute Manual 6.72 10^3/uL (1.4-6.5)
--- NOTE | 2024-02-13 09:04 | CM.NOTE ---
Rounds made with Dr. Liu. Dr. Liu to check additional labs this am, give one unit PRBCs and check rt ankle xray for contined pain. Mr. Dykes in agreement. Plan for discharge to home with [facility].
--- NOTE | 2024-02-13 09:41 | P.DS_ITS ---
DS: Providers Provider Date of admission: 02/10/24 03:37 Primary care physician: LEXI COLLINS Consults: 02/10/24 06:45 Consult to Pharmacy Routine Consulting Provider: Reason for consultation: Please [place] me when Med Rec is Updated Has provider been notified: No Occupational Therapy Eval and Treat Routine Reason for consultation: Only if needed for Rehab Has provider been notified: No Physical Therapy Eval and Treat Routine Reason for consultation: Eval and Treat Has provider been notified: No 02/12/24 09:57 Consult to Beam Doffer Routine Reason for consult:: Home Health Other reason:: Home tomorrow or rehab tomorrow? DS: Diagnosis Discharge Diagnosis (1) Chronic renal disease: (2) Anemia: (3) Cellulitis of leg, right: (4) MDS (myelodysplastic syndrome): Plan Admission findings: Hypotension, acute hypoxia, leukocytosis with bandemia, positive lactate, elevated liver function test, acute renal failure, elevated CRP P secondary to right lower extremity cellulitis resulting in severe sepsis. Continue with IV antibiotics, blood cultures are still pending, slight improvement per patient. Leg continues to look better, he does still have bandemia today, still with significant pain. With overall improvement in the bandemia and the erythema, will maintain current antibiotics Myelodysplastic disorder with cytopenia and anemia,-hemoglobin down today, 6.5, will give 1 unit of PRBCs Acute renal failure-baseline creatinine of 1.52, creatinine admission 2.80,- stable in the last 2 days NIDDM-insulin sliding scale and home medications, hold off on glipizide since were not sure while he is going to be eating,-stable Hypertension by history-low on admission, watch closely hold blood pressure medications GERD-Home medications Elevated BNP-elevated again today, will restart his home medications tomorrow, will give 1 dose of IV Bumex today to try to catch up from previous day and the blood transfusion Abnormal urinalysis-antibiotics as outlined above for the cellulitis, urine culture pending-should have results later today Severe protein calorie malnutrition-diet management Admission status: Patient with severe sepsis as outlined above, medically necessary treatment will span 2 midnights. Inpatient status at least 1 more days. ? DS: Summary Hospital Course Hospital Course: Admitted with failed outpatient treatment of cellulitis of right lower extremity cellulitis. Ultrasound done initially to rule out DVT and that was negative other than soft tissue fluid. Patient was treated with IV antibiotics and the erythema was very slow but did improve. His other issue is his myelodysplastic disorder he required 2 units of PRBCs. We held off on his diuretics on admission secondary to hypotension. Blood pressure improved, restarted his diuretics yesterday and today. BNP still significantly elevated but suspect this will be slow to resolve. No other signs of true heart failure, his left lower extremity did not have any significant edema and his lung exam was clear. Still has some significant pain in the ankle, checking on uric acid level for possible gout. That is pending at the time of discharge. Patient is medically stable for discharge. Follow-up with his PCP within the next week. Medications see list. Patient given Ultram for pain control. Status at Discharge Overall status at discharge: patient is not back to baseline Time Spent with Patient Time attestation: Total time spent providing and/or coordinating discharge services: Time spent: greater than 30 minutes Exam Constitutional Vital Signs, click to edit/add: Last Vital Signs Temp 97.6 F 02/13/24 04:00 Pulse 77 02/13/24 08:00 Resp 18 02/13/24 04:00 BP 97/42 L 02/13/24 04:00 Pulse Ox 94 L 02/13/24 04:00 O2 Del Method Nasal Cannula 02/13/24 04:00 O2 Flow Rate 2 02/13/24 04:00 Documenting provider has reviewed patient's vital signs: yes Common normals: no apparent distress Chest Common normals: inspection of chest normal Respiratory Common normals: normal respiratory effort (No rales) and no retractions Cardio Common normals: regular rate and regular rhythm GI Common normals: Normal to inspection, nondistended, normoactive bowel sounds present, soft to palpation and no hepatosplenomegaly Extremity Common normals: abnormal to inspection (Right lower extremity erythema and calor but much improved from admission.) DS: Data Data Completed and Pending Labs on day of discharge: Labs from last 24 hours 02/13/24 02/13/24 02/12/24 05:34 00:48 20:51 WBC 11.2 H RBC 2.22 L Hgb 7.1 L 8.2 L Hct 22.2 L* 26.1 L MCV 100.0 H MCH 32.0 MCHC 32.0 RDW 24.7 H Plt Count 158 MPV 13.1 Seg Neuts % (Manual) 60.0 Band Neutrophils % 10.0 H Lymphocytes % (Manual) 21.0 Monocytes % (Manual) 6.0 Eosinophils % (Manual) 1.0 Basophils % (Manual) 0.0 L Neutrophils # (Manual) 6.72 H Band Neutrophils # 1.1 H Lymphocytes # (Manual) 2.35 Monocytes # (Manual) 0.67 Eosinophils # (Manual) 0.11 Basophils # (Manual) 0.00 Anisocytosis 1+ Macrocytosis 1+ Sodium 135 L Potassium 4.9 Chloride 102 Carbon Dioxide 25.6 Anion Gap 12.3 BUN 60.0 H Creatinine 2.32 H Est GFR ( Amer) 33 L Est GFR (Non-Af Amer) 27 L BUN/Creatinine Ratio 25.9 Glucose 182 H Calcium 8.4 L Total Bilirubin 0.9 AST 61 H ALT 122 H Alkaline Phosphatase 221 H C-Reactive Protein 13.36 H NT-Pro-B Natriuret Pep 11613.0 H* Total Protein 6.4 Albumin 1.8 L Globulin 4.6 Albumin/Globulin Ratio 0.4 POC Glucose 185 H Blood Type Antibody Screen Crossmatch 02/12/24 02/12/24 02/10/24 16:13 11:21 01:53 WBC RBC Hgb Hct MCV MCH MCHC RDW Plt Count MPV Seg Neuts % (Manual) Band Neutrophils % Lymphocytes % (Manual) Monocytes % (Manual) Eosinophils % (Manual) Basophils % (Manual) Neutrophils # (Manual) Band Neutrophils # Lymphocytes # (Manual) Monocytes # (Manual) Eosinophils # (Manual) Basophils # (Manual) Anisocytosis Macrocytosis Sodium Potassium Chloride Carbon Dioxide Anion Gap BUN Creatinine Est GFR ( Amer) Est GFR (Non-Af Amer) BUN/Creatinine Ratio Glucose Calcium Total Bilirubin AST ALT Alkaline Phosphatase C-Reactive Protein NT-Pro-B Natriuret Pep Total Protein Albumin Globulin Albumin/Globulin Ratio POC Glucose 243 H 272 H Blood Type A Positive Antibody Screen Negative Crossmatch See Detail Preliminary micro results at discharge 02/10/24 01:01 - Preliminary Blood - Left Antecubital NO GROWTH AT 36-48 HOURS. FINAL TO FOLLOW. 02/10/24 00:43 Blood Culture Result 1 - Preliminary Blood - Right Antecubital NO GROWTH AT 36-48 HOURS. FINAL TO FOLLOW. Discharge Plan Discharge Disposition: Home Health Service Condition: Fair Discharge Medications: New levofloxacin 500 mg tablet 500 mg PO DAILY 10 Days Qty: 10 0RF cefdinir 300 mg capsule 300 mg PO Q12H 10 Days Qty: 20 0RF tramadol 50 mg tablet 50 mg PO BID PRN (Reason: pain) Qty: 14 0RF Continued dapagliflozin propanediol [Farxiga] 10 mg tablet 10 mg PO DAILY omeprazole 40 mg capsule,delayed release(DR/EC) 40 mg PO DAILY Hold Instructions: Doctor's Order terazosin 5 mg capsule 5 mg PO QPM aspirin 81 mg tablet,delayed release (DR/EC) 81 mg PO QPM atorvastatin 20 mg tablet 20 mg PO QDAY (DME) OneTouch Ultra Test Strip MISCELLANEOUS glipizide [Glucotrol XL] 5 mg tablet extended release 24hr 5 mg PO QPM metoprolol succinate [Toprol XL] 25 mg tablet extended release 24 hr 12.5 mg PO DAILY Hold Instructions: nephrology consult cyclobenzaprine 5 mg tablet 5 mg PO BID PRN (Reason: muscle spasm) Hold Instructions: Doctor's Order cholecalciferol (vitamin D3) [Vitamin D3] 25 mcg (1,000 unit) tablet 25 mcg PO DAILY lisinopril 2.5 mg tablet 2.5 mg PO DAILY 30 Days Qty: 30 0RF Hold Instructions: Doctor's Order febuxostat 40 mg Tablet 40 mg PO DAILY 30 Days Qty: 30 0RF Hold Instructions: nephrology consult famotidine [Pepcid] 20 mg tablet 20 mg PO BID Qty: 10 0RF Hold Instructions: Doctor's Order spironolactone 25 mg tablet 25 mg PO .once daily triamcinolone acetonide 0.1 % cream 1 applic TOPICAL BID metolazone 2.5 mg tablet 2.5 mg PO .once weekly bumetanide 1 mg tablet 2 mg PO QAM Activity: ambulate only with your walker and resume usual activities as tolerated Diet: advance to your usual diet Print Language: Citizen Of [place] Patient Instructions: Cellulitis (ED) Safety And Security Officer/Handkerchief Presser Instructions: Discharge with [facility], phone number is [phone]. They should contact within 48 hours of discharge Forms: Portal Instructions Follow Up Appointments: February 19 @ 9:30am with Lexi Collins NP [phone] Discharge Date/Time: 02/13/24 16:08
--- NOTE | 2024-02-13 09:42 | XR_ITS ---
The [address] [address] Patient Name: SANDIP BROUSSARD MRN: [id number] date: 1940 Sex: M Assigned Patient Location: [place] Current Patient Location: [place] Accession/Order Number: [id number] Exam Date: 02/13/2024 10:24 Report Date: 02/13/2024 10:40 At the request of: MACIEJ PEREZ Procedure: XR ankle RT 2V PROCEDURE: XR ankle RT 2V HISTORY: swelling COMPARISON: None. FINDINGS: BONES:No fracture, dislocation, bone lesion. No significant narrowing of the ankle joint space. Degenerative enthesopathic spurring of the calcaneus. SOFT TISSUES:Soft tissue swelling surrounding the ankle. Atherosclerotic disease. EFFUSION:None visible. OTHER: Negative. XR/XR ankle RT 2V IMPRESSION: 1. No acute bone abnormality or significant degenerative joint disease. 2. Soft tissue swelling of uncertain etiology. Electronically authenticated by: OUMOU MONTIEL Date: 02/13/2024 10:40
[2024-02-13] MEDS: PROSTAT 15 GM PROTEIN/100 CAL 30 ML LIQUID PACKET PO (09:51)
[2024-02-13] MEDS: ATORVASTATIN CALCIUM 20 MG TABLET PO (09:51)
[2024-02-13] MEDS: OMEPRAZOLE 40 MG CAPSULE.DR PO (09:51)
[2024-02-13] MEDS: FAMOTIDINE 20 MG TABLET PO (09:51)
[2024-02-13] MEDS: ENSURE HP 237 ML LIQUID PO (09:51)
[2024-02-13 09:57] LABS: Uric Acid 5.6 mg/dL (3.5-7.2)
--- NOTE | 2024-02-13 09:58 | SWNOTE1 ---
Pt is going home today with [facility]. Pt did work with OT this morning. Pt was sitting up in chair when SW came in, voiced he was feeling better. FLOYD sent CRF, dc med rec, OT from today and DNR order to [facility].
[2024-02-13] MEDS: DIPHENHYDRAMINE HCL 25 MG CAPSULE PO (11:39)
--- NOTE | 2024-02-13 11:39 | PT.DAILY ---
Physical Therapy Daily Note PT Daily Note/Assess Start: 02/11/24 09:46 Freq: Status: Active Protocol: Document 02/13/24 10:35 JOSE F (Rec: 02/13/24 11:39 JOSE F [id number]) Physical Therapy Daily Note/Assessment Time In/Time Out Time In 10:36 Time Out 10:46 Subjective Subjective Patient is up in chair, reports R ankle pain is high but has been able to get up okay using RW. Waiting on blood and then can have Tylenol after infusion. Denies getting up for PT right now due to this but agrees to exercises in chair. Therapeutic Exercise Time Therapeutic Exercise Minutes (minutes) 8 Therapeutic Exercise Units 1 Therapeutic Exercise Treatment Therapeutic Exercise Treatment Seated exercises completed 10 reps each to promote LE strength and ROM. Total Physical Therapy Time Total Therapy Minutes 8 Total Physical Therapy Units 1 Summary Daily Note Summary Exercises completed, patient is already up in chair and reports is moving around fine. Family and patient have no concerns with patient discharging home with HH today per discussion. Patient declines to get up and ambulate with PT this AM due to not being able to have Tylenol prior to blood infusion. Patient in chair with call light in reach and all needs met post RX. Patient family present in room as well.
--- NOTE | 2024-02-13 11:41 | SWNOTE1 ---
SW spoke to pt's sister and pt in room. Pt is ready to go home today with HH. Pt and family have no concerns about discharge at this time.
[2024-02-13 11:44] LABS: Glucometer 271 mg/dL (74-106)
--- NOTE | 2024-02-13 14:53 | SWNOTE1 ---
SW spoke to pt's on the phone. SW informed her that HH is all set and they will contact her over the or Friday.
[2024-02-13] MEDS: BUMETANIDE 1 MG/4 ML VIAL 2 MG IVP (15:14)
--- NOTE | 2024-02-16 13:28 | CM.DCFOLLOWU ---
Person spoke with: patient's How are you feeling? doing alright, trying to get around, better than what he was How is your pain? so/so Did you understand your discharge instructions? had questions in regards to med rec Do you have any questions about your discharge instructions? yes, med rec Were you given any prescriptions at discharge? yes Were you able to get your prescriptions filled? yes Do you understand how to take your medications as ordered? is not sure about Tylenol vs Tramadol, has requested the director of MED/SURGE floor reach back out to Do you have any questions about your follow up appointment and do you plan to keep your follow up appointment? no questions, follow up is tomorrow with HOSPITAL SUPERVISOR Is there anything else that you would like to discuss? no Questions/Comments/Concerns/Other: See above
== END 2024-02-13 16:08 | disposition home health service (06) | DRG 871 ==
LOC: ER 01:21 → MS 03:38
PROVIDERS: Registered Nurse; Admitting Provider Family Medicine; Emergency Provider Emergency Medicine; PCP Nurse Practitioner Family; Visit Provider Family Medicine
DX: A41.9 Sepsis, unspecified organism (principal); E43 Unspecified severe protein-calorie malnutrition; L03.115 Cellulitis of right lower limb; E87.20 Acidosis, unspecified; N17.9 Acute kidney failure, unspecified; J96.11 Chronic respiratory failure with hypoxia; I50.32 Chronic diastolic (congestive) heart failure; I13.0 Hypertensive heart and chronic kidney disease with heart failure and stage 1 through stage 4 chronic kidney disease, or unspecified chronic kidney disease; R65.20 Severe sepsis without septic shock; E11.628 Type 2 diabetes mellitus with other skin complications; D46.9 Myelodysplastic syndrome, unspecified; E11.22 Type 2 diabetes mellitus with diabetic chronic kidney disease; I48.91 Unspecified atrial fibrillation; R79.82 Elevated C-reactive protein (CRP); K21.9 Gastro-esophageal reflux disease without esophagitis; N18.30 Chronic kidney disease, stage 3 unspecified; I07.1 Rheumatic tricuspid insufficiency; I34.0 Nonrheumatic mitral (valve) insufficiency; I25.10 Atherosclerotic heart disease of native coronary artery without angina pectoris; R79.89 Other specified abnormal findings of blood chemistry; R82.90 Unspecified abnormal findings in urine; D75.9 Disease of blood and blood-forming organs, unspecified; D63.8 Anemia in other chronic diseases classified elsewhere; H91.90 Unspecified hearing loss, unspecified ear; Z99.81 Dependence on supplemental oxygen; Z85.46 Personal history of malignant neoplasm of prostate; Z86.010 Personal history of colon polyps; Z98.890 Other specified postprocedural states; Z95.5 Presence of coronary angioplasty implant and graft; Z79.82 Long term (current) use of aspirin; Z95.9 Presence of cardiac and vascular implant and graft, unspecified; Z87.891 Personal history of nicotine dependence; Z79.899 Other long term (current) drug therapy; Z68.30 Body mass index [BMI] 30.0-30.9, adult
CPT/HCPCS: 36415; 36430; 71046; 73600; 80048; 80053; 81001; 82948; 83605; 83735; 83880; 84100; 84145; 84550; 85007; 85014; 85018; 85025; 85027; 85378; 85610; 85652; 85730; 86140; 86850; 86900; 86901; 86923; 87040; 87086; 93005; 93970; 94761; 96361; 96365; 96366; 96367; 96368; 96375; 96376; 97110; 97161; 97165; 97530; 97535; 99285; J0295; J1200; J2543; J3370; J3475; P9016

== ENCOUNTER 2024-02-19 07:42 | Outpatient (RCR) | payer MEDICARE, SELFPAY ==
[2024-01-27 11:11] LABS: Mean Corpuscular HGB Conc 32.4 g/dL (29.9-35.2); Mean Corpuscular Hemoglobin 33.3 pg (25.9-34.0); Mean Corpuscular Volume 102.9 fL (80.0-94.0); Mean Platelet Volume 12.5 fL (9.5-13.5); Platelet Count 166 10^3/uL (150-450); Red Cell Distribution Width 22.5 % (11.0-15.0); White Blood Count 6.9 10^3/uL (4.0-11.0)
[2024-01-27 11:17] LABS: Hematocrit 21.6 % (42.0-54.0)
[2024-01-27 11:18] LABS: Anion Gap 15.8; Calcium 8.9 mg/dL (8.5-10.1); Carbon Dioxide 26.8 mmol/L (21.0-32.0); Chloride 95 mmol/L (98-107); Estimated GFR (African America 27 (>=60); Estimated GFR (Non-African Ame 22 (>=60); Glucose 121 mg/dL (74-106); Potassium 4.6 mmol/L (3.5-5.1); Sodium 133 mmol/L (136-145)
[2024-01-27 11:48] LABS: Band Neutrophils Absolute 0.1 10^3/uL (0.0-0.3); Lymphocytes Absolute Manual 0.48 10^3/uL (1.20-3.80); Monocytes Absolute Manual 0.69 10^3/uL (0.30-0.80); Segmented Neut Absolute Manual 5.58 10^3/uL (1.4-6.5)
[2024-01-27 11:49] LABS: Anisocytosis 3+; Macrocytosis 2+
[2024-01-27] MEDS: 0.9 % SODIUM CHLORIDE 250 ML 10 ML IV (12:00)
[2024-01-27] MEDS: DIPHENHYDRAMINE HCL 25 MG CAPSULE PO (12:35)
[2024-01-27] MEDS: ACETAMINOPHEN 325 MG TABLET 650 MG PO (12:35)
[2024-01-27 12:41] VITALS: BP 94/56; PULSE 66; TEMP 36.2; O2SAT 99
--- NOTE | 2024-01-27 12:45 | PC.NURSE ---
1245 Alert oriented, color pale skin warm dry. Heart tones regular. lungs clear. IV initiated left wrist. 1st unit prbc;s initiated. instructed to notify staff of anyitching, shortness of breath chest pain, flank pain etc. verbalizes understanding. Eating a meal at this time. Has a skin tear on rt elbow from a fall he had at home last bleeding thru dressing, dressing removed, approx 3 cm skin tear on outer aspect of rt elbow. cleansed, telfa and abd applied, wrapped loosely with coban.
[2024-01-27 12:54] VITALS: BP 110/64; PULSE 66; TEMP 36.3; O2SAT 99
[2024-01-27 12:59] VITALS: BP 110/60; PULSE 60; TEMP 36.3; O2SAT 97
--- NOTE | 2024-01-27 13:04 | PC.NURSE ---
tolerating prbc's without difficulty. rate increased to 150 ml hr.
--- NOTE | 2024-01-27 14:16 | PC.NURSE ---
1330 tolerating prbc's without any issues.
[2024-02-03 14:17] LABS: Mean Corpuscular HGB Conc 31.9 g/dL (29.9-35.2); Mean Corpuscular Hemoglobin 33.5 pg (25.9-34.0); Mean Corpuscular Volume 104.9 fL (80.0-94.0); Mean Platelet Volume 12.4 fL (9.5-13.5); Platelet Count 140 10^3/uL (150-450); Red Blood Count 2.06 10^6/uL (4.70-6.10); Red Cell Distribution Width 22.2 % (11.0-15.0); White Blood Count 7.5 10^3/uL (4.0-11.0)
[2024-02-03 14:24] LABS: Hematocrit 21.6 % (42.0-54.0); Hemoglobin 6.9 g/dL (14.0-18.0)
[2024-02-03 15:51] LABS: Band Neutrophils Absolute 0.6 10^3/uL (0.0-0.3); Lymphocytes Absolute Manual 0.82 10^3/uL (1.20-3.80); Metamyelocytes Absolute Manual 0.15; Monocytes Absolute Manual 0.67 10^3/uL (0.30-0.80); Segmented Neut Absolute Manual 5.25 10^3/uL (1.4-6.5)
[2024-02-03 15:52] LABS: Anisocytosis 3+; Macrocytosis 1+
[2024-02-17 11:35] LABS: Hemoglobin 8.3 g/dL (14.0-18.0); Mean Corpuscular HGB Conc 31.9 g/dL (29.9-35.2); Mean Corpuscular Hemoglobin 32.9 pg (25.9-34.0); Mean Corpuscular Volume 103.2 fL (80.0-94.0); Mean Platelet Volume 13.5 fL (9.5-13.5); Platelet Count 174 10^3/uL (150-450); Red Blood Count 2.52 10^6/uL (4.70-6.10); Red Cell Distribution Width 22.3 % (11.0-15.0); White Blood Count 6.7 10^3/uL (4.0-11.0)
[2024-02-17 11:56] LABS: BUN Creatinine Ratio 28.6; Calcium 8.7 mg/dL (8.5-10.1); Carbon Dioxide 24.4 mmol/L (21.0-32.0); Chloride 96 mmol/L (98-107); Estimated GFR (African America 35 (>=60); Estimated GFR (Non-African Ame 29 (>=60); Glucose 227 mg/dL (74-106); Potassium 5.4 mmol/L (3.5-5.1); Sodium 130 mmol/L (136-145)
[2024-02-17 12:24] LABS: Band Neutrophils Absolute 0.3 10^3/uL (0.0-0.3); Lymphocytes Absolute Manual 0.46 10^3/uL (1.20-3.80); Monocytes Absolute Manual 0.73 10^3/uL (0.30-0.80); Segmented Neut Absolute Manual 4.75 10^3/uL (1.4-6.5)
[2024-02-17 12:27] LABS: Anisocytosis 1+; Hypochromasia 1+
[2024-02-17 12:29] LABS: Erythrocyte Sedimentation Rate 105 mm/hr (<=20)
[2024-02-17 12:32] LABS: Alanine Aminotransferase 100 U/L (16-63); Albumin Globulin Ratio 0.5; Albumin Level 2.3 g/dL (3.4-5.0); Alkaline Phosphatase 253 U/L (46-116); Aspartate Amino Transferase 48 U/L (15-37); Bilirubin Direct 0.5 mg/dL (0.0-0.2); C Reactive Protein 7.03 mg/dL (<=0.50); Globulin 4.8 g/dL; Total Protein 7.1 g/dL (6.4-8.2)
[2024-02-17 13:30] VITALS: BP 110/56; PULSE 56; TEMP 36.4; O2SAT 96
[2024-02-17] MEDS: 0.9 % SODIUM CHLORIDE 250 ML 10 ML IV (13:30)
[2024-02-17] MEDS: MAGNESIUM SULFATE IN WATER 2 GM/50 ML PREMIX IV (13:30)
[2024-02-17] MEDS: VANCOMYCIN HCL 1,250 MG in 0.9 % SODIUM CHLORIDE 250 ML 166.667 MG IV (13:30)
--- NOTE | 2024-02-18 07:53 | PC.NURSE ---
02/17/2024 1330 Arrival per wheelchair to chair 3, alert oriented, color pale skin warm and dry. oxygen at 3 lpm nc, switched from patient supply to hospital wall oxygen. here for IV antibiotics for cellulitis of RLE. rt ankle and lower calf reddened, very tender to touch, complains of pain when left dependant, sl warm to touch. Given water and nutritional supplement. reclined in recliner. #22 IV initated left inner forearm for infusion, patient tolerated well. at chairside. 1415 Tolerating infusions without any issues, 1515 infusions completed. IV saline locked wrapped lightly with coban. assisted to wheelchair and released with
[2024-02-19 13:43] VITALS: BP 135/86; PULSE 84; TEMP 36.1; O2SAT 98
--- NOTE | 2024-02-19 13:48 | PC.NURSE ---
1330 Arrival per wheelchair per with . Patient states he just don't want ot do all this anymore, complains ofhaving diarrhea, is getting immodium to start today. alert oriented. respirations with ease getting into chair. noted some exertional dyspnea. lungs clear anterio lateral light. right ankle which was reddened inflammed and tender on Friday looks improved, some reddness and tenderness but much less than 2 days ago. IV Saline lock intact rt inner forearm. unable to draw labs off 1340 lab in for blood draw. states hospice is coming to house this evening to speak with them.
[2024-02-19] MEDS: VANCOMYCIN HCL 1,250 MG in 0.9 % SODIUM CHLORIDE 250 ML 166.667 MG IV (14:07)
[2024-02-19 14:45] LABS: Vancomycin Random 9.2 ug/mL
== END 2024-02-25 23:59 | disposition home or self-care (01) ==
LOC: HEMC 07:42
PROVIDERS: PCP Nurse Practitioner Family; Visit Provider Internal Medicine Hematology & Oncology
DX: N18.4 Chronic kidney disease, stage 4 (severe) (principal); D46.20 Refractory anemia with excess of blasts, unspecified; D63.1 Anemia in chronic kidney disease; Z87.891 Personal history of nicotine dependence; D46.9 Myelodysplastic syndrome, unspecified
CPT/HCPCS: 36415; 36430; 80048; 80076; 80202; 85007; 85027; 85652; 86140; 86850; 86900; 86901; 86923; 96365; 96366; 96368; G0463; J3370; J3475; P9016